=== PATIENT | male | born 1975 | race Caucasian/White ===

== ENCOUNTER 2017-11-12 13:00 | Outpatient (RCR) | payer BC, SELFPAY ==
--- NOTE | 2017-10-28 15:16 | HMH.PTOPEV ---
Rehab Outpatient Evaluation Rehab OP Evaluation Start: 10/28/17 14:26 Freq: Status: Active Protocol: Document 10/28/17 15:02 KAMRON (Rec: 10/28/17 15:16 JAYDENÁNGEL [id number]) Electronically Signed By Garett Mercado, PT 10/28/17 15:02 Outpatient Therapy Subjective History Subjective History Patient is a 42 year old male presenting to outpatient PT with reports of low back pain of insidious onset starting approximately 2 months ago that has progressively gotten worse. Inreased pain with standing which is relieved with sitting. Bilateral radicular symptoms to posterior thigh when standing. No diagnostics to report at this time. Comorbidities include increased BMI, hypertension , hyperlipidemia, diabetes. Pt reports hx of peripheral neuropathy prior to onset of back pain. Chief Complaint Pain Symptom Type Ache Dull Numbness Tingling Symptoms Relieved By Rest/Positioning Prescription Meds Symptoms Aggravated By Standing Walking Prior Functional Limitations None Current Functional Limitations Standing Walking Stairs Symptom Description Intermittent Level of pain today (0-10) 0 Pain scale - at its best (0-10) 8 Pain scale - at its worst (0-10) 0 Lumbopelvic Eval Posture Thoracic Spine Posture Standing Position Neutral Lumbar Spine Posture Standing Position Increased Lordosis Assistive device Assistive Devices None / NA Palapation tenderness bilateral paraspinal tenderness Yes Lumbar/Sacral Palpation Overall Comment L3-S1 Accessory Movement L-spine Vertebrae Accessory Movements Central P/A [place] that Elicit Symptoms L4 bilateral L5 bilateral S1 bilateral Range of Motion Lumbar Spine Active Flexion Range of 75 Motion (degrees) Lumbar Spine Active Extension Range of 20 Motion (degrees) Left Lumbar Spine Lateral Flexion Active 30 Range of Motion (degrees) Right Lumbar Spine Lateral Flexion 30 Active Range of Motion
== END 2017-11-12 13:01 | disposition home or self-care (01) ==
LOC: PT 13:00
PROVIDERS: Family Provider Family Medicine; Visit Provider Family Medicine
DX: M48.062 Spinal stenosis, lumbar region with neurogenic claudication (principal)
CPT/HCPCS: 97010; 97014; 97035; 97110; 97163; G0283

== ENCOUNTER → 2017-11-24 10:12 | Outpatient (CLI) | payer BC, SELFPAY ==
--- NOTE | 2017-11-24 10:15 | MR_ITS ---
MR lumbar spine wo con, MR 3-d myelogram/MRCP HISTORY: Unable to stand for long periods. Pain, numbness, and tingling radiating Bilaterally down hips and legs. Symptoms [id number]. No trauma ITS.REASON: SPINAL STENOSIS, LUMBAR REGION ORDERING PHYSICIAN: Asad Lozada MD PATIENT AGE: 42 years TECHNIQUE: Standard multiplanar multiecho sequences are performed without contrast. 3-D MIP and myelographic images are also rendered and reviewed FINDINGS: EXAM is somewhat limited secondary to patient's body habitus in decreased [id number]-iz-[id number] ratio. There is normal alignment. L1-L2: Unremarkable. L2-L3: Minimal disc desiccation. L3-L4: Unremarkable. L4-5: Unremarkable. L5-S1: There is a small central disc protrusion without neural impingement. There is mild facet hypertrophic change. No canal stenosis or other significant anomalies evident. IMPRESSION: Small central disc protrusion at L5-S1 otherwise essentially negative MRI of the lumbar spine
--- NOTE | 2017-11-24 10:15 | MR_ITS ---
MR lumbar spine wo con, MR 3-d myelogram/MRCP HISTORY: Unable to stand for long periods. Pain, numbness, and tingling radiating Bilaterally down hips and legs. Symptoms [id number]. No trauma ITS.REASON: SPINAL STENOSIS, LUMBAR REGION ORDERING PHYSICIAN: Asad Lozada MD PATIENT AGE: 42 years TECHNIQUE: Standard multiplanar multiecho sequences are performed without contrast. 3-D MIP and myelographic images are also rendered and reviewed FINDINGS: EXAM is somewhat limited secondary to patient's body habitus in decreased apipgf-kv-xulgz ratio. There is normal alignment. L1-L2: Unremarkable. L2-L3: Minimal disc desiccation. L3-L4: Unremarkable. L4-5: Unremarkable. L5-S1: There is a small central disc protrusion without neural impingement. There is mild facet hypertrophic change. No canal stenosis or other significant anomalies evident. IMPRESSION: Small central disc protrusion at L5-S1 otherwise essentially negative MRI of the lumbar spine
== END ==
PROVIDERS: Family Provider Family Medicine; Visit Provider Family Medicine
DX: M48.062 Spinal stenosis, lumbar region with neurogenic claudication (principal)
CPT/HCPCS: 72148; 76376

== ENCOUNTER → 2018-03-04 15:39 | Outpatient (REF) | payer BC, SELFPAY ==
[2018-03-04 17:42] LABS: Basophils % 0.5 % (0.1-2.0); Eosinophils # 0.2 K/mm3 (0.0-0.4); Eosinophils % 1.9 % (0.1-12.0); Hematocrit 47.5 % (42.0-52.0); Hemoglobin 15.4 g/dL (14.1-18.0); Lymphocytes # 1.4 K/mm3 (0.7-4.5); Mean Corpuscular HGB Conc 32.5 g/dL (31.8-35.4); Mean Corpuscular Hemoglobin 28.6 pg (27.0-31.2); Mean Platelet Volume 8.3 fl (7.4-10.4); Monocytes # 0.4 K/mm3 (0.1-1.0); Monocytes % 5.8 % (1.7-9.3); Neutrophils # 5.6 K/mm3 (1.8-7.8); Neutrophils % 73.7 % (37.0-80.0); Platelet Count 139 K/mm3 (142-424); Red Cell Distribution Width 15.8 % (11.5-17.5); White Blood Count 7.6 K/mm3 (4.8-10.8)
[2018-03-04 17:45] LABS: Hemoglobin A1C 10.2 % (0.0-7.0)
[2018-03-04 18:11] LABS: Alanine Aminotransferase 55 U/L (12-78); Albumin Level 3.7 gm/dL (3.4-5.0); Albumin/Globulin Ratio 0.9 (1.1-1.8); Alkaline Phosphatase 69 U/L (46-116); Anion Gap 12.4 mEq/L (5-15); Aspartate Amino Transferase 31 U/L (15-37); Bilirubin,Total 0.6 mg/dL (0.2-1.0); Blood Urea Nitrogen 13 mg/dL (7-18); Calcium 9.6 mg/dL (8.5-10.1); Carbon Dioxide 32 mmol/L (21.0-32.0); Chloride 95 mmol/L (98-107); Chol/HDL Ratio 3.3 (1-3.5); Cholesterol 113 mg/dL (140-200); Creatinine,Serum 0.84 mg/dL (0.70-1.30); Estimated Glomerular Filt Rate 101 ml/min (>60); GFR (African American) 122 ML/MIN (>60); Globulin 4.1 gm/dl (1.3-3.2); Glucose 274 mg/dL (74-106); HDL Cholesterol 34 mg/dL (27-67); LDL Cholesterol 52 mg/dL (0-130); Potassium 4.4 mmoL/L (3.5-5.1); Sodium 135 mmol/L (136-145); T4 (Thyroxine) 8.6 ug/dl (4.7-13.3); Total Protein,Serum 7.8 gm/dL (6.4-8.2); Triglycerides 135 mg/dL (30-200); VLDL Cholesterol 27 mg/dL (0-40)
[2018-03-06 09:15] LABS: Creatinine, Urine 47.5 mg/dL (Not Estab.); Microalbumin, Urine 44.3 ug/mL (Not Estab.)
[2018-03-08 12:54] LABS: Vitamin D 25 Hydroxy 18.8 ng/mL (30.0-100.0)
== END ==
LOC: LAB 15:39
PROVIDERS: Visit Provider Nurse Practitioner Family
DX: E11.40 Type 2 diabetes mellitus with diabetic neuropathy, unspecified (principal); I10 Essential (primary) hypertension; Z79.4 Long term (current) use of insulin
CPT/HCPCS: 80053; 80061; 82043; 82570; 82652; 83036; 84436; 84443; 85025

== ENCOUNTER → 2018-07-09 13:37 | Outpatient (CLI) | payer BC, SELFPAY ==
[2018-07-09 13:45] LABS: Microscopic, Urine URINE MICROSCOPIC (MICROSCOPIC)
[2018-07-09 14:21] LABS: Basophils % 0.7 % (0.1-2.0); Eosinophils # 0.2 K/mm3 (0.0-0.4); Eosinophils % 2.9 % (0.1-12.0); Hematocrit 48.5 % (42.0-52.0); Hemoglobin 15.8 g/dL (14.1-18.0); Lymphocytes # 1.2 K/mm3 (0.7-4.5); Lymphocytes % 20.8 % (10-50); Mean Corpuscular HGB Conc 32.5 g/dL (31.8-35.4); Mean Corpuscular Hemoglobin 29.7 pg (27.0-31.2); Mean Corpuscular Volume 91.1 fl (80-94); Mean Platelet Volume 7.7 fl (7.4-10.4); Monocytes # 0.4 K/mm3 (0.1-1.0); Monocytes % 6.5 % (1.7-9.3); Neutrophils % 69.2 % (37.0-80.0); Platelet Count 143 K/mm3 (142-424); Red Blood Count 5.32 M/mm3 (4.60-6.20); Red Cell Distribution Width 14.5 % (11.5-17.5); White Blood Count 5.8 K/mm3 (4.8-10.8)
[2018-07-09 14:30] LABS: Appearance,Urine CLEAR (Clear); Bilirubin,Urine Negative (Negative); Blood, Urine TRACE-I (Negative); Color,Urine YELLOW (Yellow); Glucose,Urine (UA) 3+ (Negative); Ketones,Urine Negative (Negative); Leukocyte Esterase,Urine Negative (Negative); Nitrate,Urine Negative (Negative); Protein,Urine TRACE (Negative)
[2018-07-09 14:34] LABS: Creatinine,Urine Random 60 mg/dL (20-320); Total Protein,Urine Random 28.5 mg/dL (0.0-11.9)
[2018-07-09 15:51] LABS: Bacteria,Urine Trace /lpf; RBC,Urine Occasional #/hpf (0-3)
[2018-07-09 17:26] LABS: Albumin Level 3.6 gm/dL (3.4-5.0); Blood Urea Nitrogen 7 mg/dL (7-18); Calcium 9.3 mg/dL (8.5-10.1); Carbon Dioxide 27 mmol/L (21.0-32.0); Chloride 92 mmol/L (98-107); Creatinine,Serum 0.69 mg/dL (0.70-1.30); Estimated Glomerular Filt Rate 126 ml/min (>60); GFR (African American) 153 ML/MIN (>60); Glucose 273 mg/dL (74-106); Phosphorous 2.4 mg/dL (2.4-4.9); Sodium 133 mmol/L (136-145)
[2018-07-12 14:24] LABS: Vitamin D 25 Hydroxy 22.8 ng/mL (30.0-100.0)
[2018-07-12 20:13] LABS: Parathyroid Hormone Intact 20 pg/mL (15-65)
== END ==
PROVIDERS: PCP Nurse Practitioner Family; Visit Provider Internal Medicine Nephrology
DX: R80.9 Proteinuria, unspecified (principal)
CPT/HCPCS: 36415; 80069; 81001; 82570; 82652; 83970; 84155; 85025

== ENCOUNTER → 2018-07-15 14:57 | Outpatient (POV) | payer BC, SELFPAY | PROVIDERS: Visit Provider Internal Medicine Nephrology | DX: Z00.00 Encounter for general adult medical examination without abnormal findings (principal) ==

== ENCOUNTER → 2018-07-30 13:34 | Outpatient (CLI) | payer BC, SELFPAY ==
[2018-07-30 14:55] LABS: Amphetamine/Metha Screen,Urine Negative ng/mL (<1000); Barbiturates Screen,Urine Negative ng/mL (<200); Benzodiazepines Screen,Urine Negative ng/mL (<200); Cannabinoid Screen,Urine Negative ng/mL (<50); Cocaine Screen,Urine Negative ng/mL (<300); Methadone Screen,Urine Negative ng/mL (<300); Opiate Screen,Urine Negative ng/mL (<300); Phencyclidine Screen,Urine Negative ng/mL (<25)
[2018-08-06 15:23] LABS: Alprazolam Negative (Cutoff=100); Benzodiazepines Negative ng/mL (Cutoff=100); Clonazepam Negative (Cutoff=100); Flurazepam Negative (Cutoff=100); Lorazepam Negative (Cutoff=100); Midazolam Negative (Cutoff=100); Temazepam Negative (Cutoff=100); Triazolam Negative (Cutoff=100)
== END ==
PROVIDERS: Visit Provider Nurse Practitioner Family
DX: Z79.899 Other long term (current) drug therapy (principal)
CPT/HCPCS: 80305; 80346

== ENCOUNTER → 2018-08-27 10:24 | Outpatient (CLI) | payer BC, SELFPAY | PROVIDERS: PCP Nurse Practitioner Family; Visit Provider Nurse Practitioner Family | DX: R06.02 Shortness of breath (principal); R05 Cough; F17.200 Nicotine dependence, unspecified, uncomplicated | CPT/HCPCS: 94060; 94640 ==

== ENCOUNTER → 2018-09-21 14:24 | Outpatient (POV) | payer BC, SELFPAY | PROVIDERS: Visit Provider Internal Medicine | DX: Z00.00 Encounter for general adult medical examination without abnormal findings (principal) ==

== ENCOUNTER → 2018-09-28 08:35 | Outpatient (CLI) | payer BC, SELFPAY ==
--- NOTE | 2018-09-28 08:37 | US_ITS ---
US scrotum HISTORY: Pain and swelling now with drainage ITS.REASON: mass ORDERING PHYSICIAN: Chintan Aguayo MD PATIENT AGE: 43 years Comparison: None FINDINGS: The right testicle is 5.3 x 2.4 x 3.3 cm. No testicular mass is evident. There is blood flow noted. There is some increased echogenicity of the slightly enlarged epididymis. No hydrocele The left testicle is 4.7 x 2.3 x 3.8 cm. There is blood flow present. No mass. No hydrocele. Left epididymis is somewhat prominent with some increase in echogenicity. There is diffuse edema of the scrotum. No loculated fluid collections apparent. IMPRESSION: 1. Diffuse scrotal edema. 2. Enlarged epididymides suggesting epididymitis
== END ==
PROVIDERS: PCP Emergency Medicine; Visit Provider Emergency Medicine
DX: N50.89 Other specified disorders of the male genital organs (principal)
CPT/HCPCS: 76870

== ENCOUNTER → 2018-11-08 14:33 | Outpatient (POV) | payer BC, SELFPAY ==
[2018-11-08 14:51] VITALS: BP 145/85; PULSE 85; RESP 18; O2SAT 98
--- NOTE | 2018-11-09 17:13 | HMH.PMCON ---
Assessment and Plan (1) Degenerative disc disease Current visit: Yes Status: Chronic Category: Medical (2) Lumbar radiculopathy Current visit: Yes Status: Chronic Category: Medical Code(s): M54.16 - Radiculopathy, lumbar region - Assessment and plan all Dx Assessment and Plan for all problems:: We will schedule the patient for an L5-S1 lumbar epidural steroid injection. I believe it would be beneficial given his relief from the first 1. I will follow-up with the patient after this reassess his symptoms at that time. Patient is not on any anticoagulation therapy and he is continuing a home stretching program. Patient's been instructed to call the office if he has any issues prior to his next appointment. We will also start him on gabapentin 300 mg [address] Diaz has reviewed this note and agrees with this plan of care. This note was dictated using voice recognition software and may contain errors or omissions HPI - Data of Consult Consult date: 11/08/18 Requesting Physician: Leidy Olmos APRN Primary Care Provider: BLAS Sinha - Consult Narrative Reason for consult: Back pain History of present illness: Mr. Russell is a 43 year old male who presents today for consultation in regard to his low back pain. Patient has had chronic low back pain for several years. Patient has had a epidural injection in the past and gotten moderate relief up to a 80% over 6 months. Patient would like to repeat this. I do believe that would be beneficial. Patient has done physical therapy with no long-term relief. Patient has numbness and tingling in bilateral legs. He does have an abnormal MRI he rates his pain a 5 out of 10. He is not on any anticoagulation therapy. He is currently on anti-inflammatories. CC: Leidy Olmos APRN [facility] History I have reviewed the patient's past medical history: Yes Medical History: Reports:: Anxiety, Depression, Diabetes Mellitus Type 2, Gall Bladder Disease, Gastroesophageal Reflux Disease(GERD), Hypertension *Have you ever received a pneumonia vaccine?: No *Have you received a flu vaccine this season?: No Other Surgeries: Yes: Cholecystectomy Amputation: No Fractures: Yes - *Social History Smoking Status: Current every day smoker Tobacco Type: cigarettes # Packs/Day (cigarettes): 1 Alcohol Intake: never Alcohol Intake Frequency:: 3 or more drinks per day Substance Use Type: denies use *Occupational Status:: employed Housing: house Household Members: spouse, children *Travel in the last 8 weeks: None - Psychiatric History Expresses thoughts of harming self/others: None Suicide Plan Description: No Plan Pschychiatric History:: Reports:: Anxiety, Depression Family Hx:: No significant family history Review of Systems - Review of Systems ROS General: no recent weight change, no fever, no sleep disturbances Respiratory: no cough, no shortness of air, no recurring pulmonary infections Cardiovascular/Peripheral Vascular: No chest pain, No palpitations, no edema, no shortness of breath. Gastrointestinal: no incontinence, normal bowel movements reported Genitourinary: no incontinence Musculoskeletal: Back pain, leg pain Psychiatric: normal mood/ affect, Neurological: [denies weakness in extremities], [denies balance issues] Meds Home Medications Medication Instructions Recorded Confirmed Type atorvastatin 40 mg tablet 40 mg PO DAILY 03/04/18 10/22/18 History Albuterol Sulfate [Albuterol HFA 1 - 2 puffs IH Q4-6H PRN #1 inh 07/11/18 10/22/18 Rx Inhaler] lorazepam 1 mg tablet 1 mg PO BID PRN #60 tab 07/30/18 10/22/18 Rx buspirone 7.5 mg tablet 15 mg PO TID #180 tab 08/10/18 10/22/18 Rx lisinopril 20 1 tab PO DAILY #90 tab 08/13/18 10/22/18 Rx mg-hydrochlorothiazide 25 mg tablet metformin 1,000 mg tablet 1,000 mg PO BID #60 tab 09/03/18 10/22/18 Rx budesonide-formoterol HFA 160 2 puff INHALATION BID #10.2 g 08/14
--- NOTE | 2018-11-09 17:16 | P.CONS_ITS ---
Assessment and Plan (1) Degenerative disc disease Current visit: Yes Status: Chronic Category: Medical (2) Lumbar radiculopathy Current visit: Yes Status: Chronic Category: Medical Code(s): M54.16 - Radiculopathy, lumbar region - Assessment and plan all Dx Assessment and Plan for all problems:: We will schedule the patient for an L5-S1 lumbar epidural steroid injection. I believe it would be beneficial given his relief from the first 1. I will follow-up with the patient after this reassess his symptoms at that time. Patient is not on any anticoagulation therapy and he is continuing a home stretching program. Patient's been instructed to call the office if he has any issues prior to his next appointment. We will also start him on gabapentin 300 mg [address] Diaz has reviewed this note and agrees with this plan of care. This note was dictated using voice recognition software and may contain errors or omissions HPI - Data of Consult Consult date: 11/08/18 Requesting Physician: Leidy Olmos APRN Primary Care Provider: BLAS Sinha - Consult Narrative Reason for consult: Back pain History of present illness: Mr. Russell is a 43 year old male who presents today for consultation in regard to his low back pain. Patient has had chronic low back pain for several years. Patient has had a epidural injection in the past and gotten moderate relief up to a 80% over 6 months. Patient would like to repeat this. I do believe that would be beneficial. Patient has done physical therapy with no long-term relief. Patient has numbness and tingling in bilateral legs. He does have an abnormal MRI he rates his pain a 5 out of 10. He is not on any anticoagulation therapy. He is currently on anti-inflammatories. CC: Leidy Olmos APRN [facility] History I have reviewed the patient's past medical history: Yes Medical History: Reports:: Anxiety, Depression, Diabetes Mellitus Type 2, Gall Bladder Disease, Gastroesophageal Reflux Disease(GERD), Hypertension *Have you ever received a pneumonia vaccine?: No *Have you received a flu vaccine this season?: No Other Surgeries: Yes: Cholecystectomy Amputation: No Fractures: Yes - *Social History Smoking Status: Current every day smoker Tobacco Type: cigarettes # Packs/Day (cigarettes): 1 Alcohol Intake: never Alcohol Intake Frequency:: 3 or more drinks per day Substance Use Type: denies use *Occupational Status:: employed Housing: house Household Members: spouse, children *Travel in the last 8 weeks: None - Psychiatric History Expresses thoughts of harming self/others: None Suicide Plan Description: No Plan Pschychiatric History:: Reports:: Anxiety, Depression Family Hx:: No significant family history Review of Systems - Review of Systems ROS General: no recent weight change, no fever, no sleep disturbances Respiratory: no cough, no shortness of air, no recurring pulmonary infections Cardiovascular/Peripheral Vascular: No chest pain, No palpitations, no edema, no shortness of breath. Gastrointestinal: no incontinence, normal bowel movements reported Genitourinary: no incontinence Musculoskeletal: Back pain, leg pain Psychiatric: normal mood/ affect, Neurological: [denies weakness in extremities], [denies balance issues] Meds Home Medications Medication Instructions Recorded Confirmed Type atorvastatin 40 mg tablet 40 mg PO DAILY 03/04/18 10/22/18 History A
== END ==
PROVIDERS: PCP Physician Assistant; Visit Provider Clinical Nurse Specialist Family Health
DX: M51.16 Intervertebral disc disorders with radiculopathy, lumbar region (principal)
CPT/HCPCS: 99202

== ENCOUNTER → 2018-12-14 09:52 | Outpatient (POV) | payer BC, SELFPAY ==
[2018-12-14 10:03] VITALS: BP 130/72; PULSE 87; RESP 18; O2SAT 98; BMI 65.9
--- NOTE | 2018-12-14 10:15 | HMH.PAINSOAP ---
[facility] Pain Management SOAP Note Subjective:: Patient is a pleasant 43-year-old white male who presents today for follow-up after his L5-S1 lumbar epidural steroid injection. Patient states he did extremely well. Patient had 80% relief of his symptoms for 2 weeks until he recently picked up a mower deck which increased his pain. Patient rates his pain today a 2 out of 10 when he sitting and not active. He is continuing anti-inflammatories and a home stretching program. He would like to repeat the epidural injection given the efficacy of it. ROS General: no recent weight change, no fever, no sleep disturbances Respiratory: no cough, no shortness of air, no recurring pulmonary infections Cardiovascular/Peripheral Vascular: No chest pain, No palpitations, no edema, no shortness of breath. Gastrointestinal: no incontinence, normal bowel movements reported Genitourinary: no incontinence Musculoskeletal: Back pain, leg pain Psychiatric: normal mood/ affect Neurological: [denies weakness in extremities], [denies balance issues] Objective:: Physical Exam General: Alert and oriented x3, no acute distress, pleasant and cooperative, [on room air] Lungs: Resps E/U, Symmetrical chest expansion, Eyes: PERRL Musculoskeletal: Flexion and extension of lumbar spine somewhat guarded secondary to pain, deep tendon reflexes normal, strength in upper and lower extremities [5/5], [abnormal gait noted] Neurological: speech clear, gusset ripper equal, no gross sensory deficits Assessment:: Degenerative disc disease lumbar spine with lumbar radiculopathy Plan:: We will set up the patient for second L5-S1 epidural steroid injection given the efficacy. Patient is on any anticoagulation therapy. I will follow-up with the patient after his injection reassess his symptoms at that time. Dr. Diaz has reviewed this note and agrees with this plan of care. This note was dictated using voice recognition software and may contain errors or omissions
--- NOTE | 2018-12-14 10:18 | P.CONS_ITS ---
[facility] Pain Management SOAP Note Subjective:: Patient is a pleasant 43-year-old white male who presents today for follow-up after his L5-S1 lumbar epidural steroid injection. Patient states he did extremely well. Patient had 80% relief of his symptoms for 2 weeks until he recently picked up a mower deck which increased his pain. Patient rates his pain today a 2 out of 10 when he sitting and not active. He is continuing anti- inflammatories and a home stretching program. He would like to repeat the epidural injection given the efficacy of it. ROS General: no recent weight change, no fever, no sleep disturbances Respiratory: no cough, no shortness of air, no recurring pulmonary infections Cardiovascular/Peripheral Vascular: No chest pain, No palpitations, no edema, no shortness of breath. Gastrointestinal: no incontinence, normal bowel movements reported Genitourinary: no incontinence Musculoskeletal: Back pain, leg pain Psychiatric: normal mood/ affect Neurological: [denies weakness in extremities], [denies balance issues] Objective:: Physical Exam General: Alert and oriented x3, no acute distress, pleasant and cooperative, [on room air] Lungs: Resps E/U, Symmetrical chest expansion, Eyes: PERRL Musculoskeletal: Flexion and extension of lumbar spine somewhat guarded secondary to pain, deep tendon reflexes normal, strength in upper and lower extremities [5/5], [abnormal gait noted] Neurological: speech clear, 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 Patient is on any anticoagulation therapy. I will follow-up with the patient after his injection reassess his symptoms at that time. Dr. Diaz has reviewed this note and agrees with this plan of care. This note was dictated using voice recognition software and may contain errors or omissions
== END ==
PROVIDERS: PCP Emergency Medicine; Visit Provider Clinical Nurse Specialist Family Health
DX: M51.16 Intervertebral disc disorders with radiculopathy, lumbar region (principal)
CPT/HCPCS: 99212

== ENCOUNTER → 2019-01-11 10:43 | Outpatient (POV) | payer BC, SELFPAY ==
[2019-01-11 11:21] VITALS: BP 119/68; PULSE 95; RESP 18; O2SAT 98; BMI 65.9
--- NOTE | 2019-01-11 11:51 | HMH.PAINSOAP ---
[facility] Pain Management SOAP Note Subjective:: Patient is a pleasant 43-year-old white male who presents today for follow-up of lumbar epidural steroid injection of L5-S1. The patient was started on gabapentin 300 mg p.o. 3 times daily. He rates his pain a 2 out of 10 today. He says that he got up to 2 weeks of relief with the injection, and about 70%. His pain has returned and is worse with standing. He says that it is worse with standing radiating into his left leg. He is continuing anti-inflammatories and a home stretching program The patient does complain of feeling too tired with gabapentin dosage. He would like a decrease in the medication. Review of Systems General: No recent weight changes, no fever, no sleep disturbances Respiratory: No cough, no shortness of air, no recurring pulmonary infections Cardiovascular/peripheral vascular: No chest pain, no palpitations, no edema, no shortness of breath Gastrointestinal: No new onset incontinence, normal bowel movements reported Genitourinary: No new onset incontinence Musculoskeletal: Pain, leg pain Psychiatric: Normal mood/affect Neurological: [Denies weakness in extremities], [denies balance issues] Objective:: Physical exam General: Alert and oriented x3, no acute distress, pleasant and cooperative, [on room air] Lungs: Respirations even and unlabored, symmetrical chest expansion Eyes: PERRL Musculoskeletal: Flexion and extension of lumbar spine somewhat guarded secondary to pain, deep tendon reflexes normal, strength in upper and lower extremities [5/5], lightly antalgic gait noted Neurological: Speech clear, biomechanical engineer equal, no gross sensory deficit Assessment:: Narrative disc disease lumbar spine with lumbar radiculopathy symptoms Plan:: We will decrease the patient's gabapentin to 100 mg 1 p.o. 3 times daily. Patient has been instructed to start out taking 1 p.o. at nighttime x1 week. He can then progressed to 3 times daily. Patient is also interested in a spinal cord stimulator. I did give him some information he would like to go home and discuss this with his . He will follow-up in 1 month to discuss further options and we will reassess his symptoms at that time. He is been instructed to call the office if he has any concerns prior to his next appointment. Sy #[id number] has been reviewed and is appropriate. Dr. Diaz has reviewed this note and agrees with this plan of care. This note was dictated using voice recognition software and make contain errors or omissions.
--- NOTE | 2019-01-11 11:55 | P.CONS_ITS ---
[facility] Pain Management SOAP Note Subjective:: Patient is a pleasant 43-year-old white male who presents today for follow-up of lumbar epidural steroid injection of L5-S1. The patient was started on gabapentin 300 mg p.o. 3 times daily. He rates his pain a 2 out of 10 today. He says that he got up to 2 weeks of relief with the injection, and about 70%. His pain has returned and is worse with standing. He says that it is worse with standing radiating into his left leg. He is continuing anti-inflammatories and a home stretching program The patient does complain of feeling too tired with gabapentin dosage. He would like a decrease in the medication. Review of Systems General: No recent weight changes, no fever, no sleep disturbances Respiratory: No cough, no shortness of air, no recurring pulmonary infections Cardiovascular/peripheral vascular: No chest pain, no palpitations, no edema, no shortness of breath Gastrointestinal: No new onset incontinence, normal bowel movements reported Genitourinary: No new onset incontinence Musculoskeletal: Pain, leg pain Psychiatric: Normal mood/affect Neurological: [Denies weakness in extremities], [denies balance issues] Objective:: Physical exam General: Alert and oriented x3, no acute distress, pleasant and cooperative, [on room air] Lungs: Respirations even and unlabored, symmetrical chest expansion Eyes: PERRL Musculoskeletal: Flexion and extension of lumbar spine somewhat guarded secondary to pain, deep tendon reflexes normal, strength in upper and lower extremities [5/5], lightly antalgic gait noted Neurological: Speech clear, 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 3 times daily. Patient has been instructed to start out taking 1 p.o. at nighttime x1 week. He can then progressed to 3 times daily. Patient is also interested in a spinal cord stimulator. I did give him some information he would like to go home and discuss this with his . He will follow-up in 1 month to discuss further options and we will reassess his symptoms at that time. He is been instructed to call the office if he has any concerns prior to his next appointment. Sy #[id number] has been reviewed and is appropriate. Dr. Diaz has reviewed this note and agrees with this plan of care. This note was dictated using voice recognition software and make contain errors or omissions.
== END ==
PROVIDERS: PCP Nurse Practitioner Family; Visit Provider Clinical Nurse Specialist Family Health
DX: M51.16 Intervertebral disc disorders with radiculopathy, lumbar region (principal)
CPT/HCPCS: 99212

== ENCOUNTER → 2019-05-05 13:48 | Outpatient (CLI) | payer BC, SELFPAY ==
--- NOTE | 2019-05-05 13:52 | XR_ITS ---
PROCEDURE: XR FOOT WT BEARING LT 3V CLINICAL INDICATION: ankle pain Ankle pain and swelling COMPARISON: XR FOOT RT MIN 3V from 03/19/2019 XR ANKLE WT BEARING LT MIN 3V from 05/05/2019 FINDINGS: No fracture or dislocation. No lytic or blastic change. There is normal mineralization. The joint spaces are well-preserved. No significant degenerative/arthritic changes. No erosive changes evident. Other findings:There is a prominent posterior talar process. There is mild pes planus and there is a small calcaneal spur. IMPRESSION: Mild pes planus. No acute finding Dictated by: Veto Zhang MD 05/05/2019 14:18 Electronically signed by Veto Zhang MD in [place] 05/05/2019 14:18
--- NOTE | 2019-05-05 13:52 | XR_ITS ---
PROCEDURE: XR ANKLE WT BEARING LT MIN 3V CLINICAL INDICATION: ankle pain COMPARISON: No exams were available for comparison FINDINGS: No fracture, dislocation, lytic change, or blastic change evident. No significant degenerative change. There is a prominent posterior talar process. Calcaneal spur and Achilles enthesophyte is noted IMPRESSION: No acute findings. Dictated by: Veto Zhang MD 05/05/2019 14:19 Electronically signed by Veto Zhang MD in [place] 05/05/2019 14:19
== END ==
PROVIDERS: PCP Emergency Medicine; Visit Provider Podiatrist
DX: M25.572 Pain in left ankle and joints of left foot (principal)
CPT/HCPCS: 73610; 73630

== ENCOUNTER 2019-05-25 13:00 | Outpatient (RCR) | payer BC, SELFPAY ==
--- NOTE | 2019-05-11 14:19 | HMH.PTOPWND ---
Rehab Outpt Wound Evaluation Rehab OP Wound Evaluation Start: 05/11/19 13:59 Freq: Status: Active Protocol: Document 05/11/19 14:12 PHOSANJIV (Rec: 05/11/19 14:19 PHORNE [id number]) Electronically Signed By Colin Malhotra, PT 05/11/19 14:12 Subjective/History History History Pt is 43 yowm who presents with c/o B LE edema x 2-3 years overall, worse x 2-3 mos and worse in the left LE than the right. He reports no c/o pain currently, but states sometimes my legs feel almost like they are sunburned. He also reports no c/o numbness or tingling aside from neuropathy in B feet due to diabetes. He reports the edema does not decrease with elevation of his legs and he sometimes feels edema increase in his abdomen and upper legs which causes respiratory difficulty. He has PMH of anxiaty, depression, DM-II. He also currently has a wound on the plantar surface of his left 2nd toe which required sutures. Subjective Subjective Edema in B LE, 3+ pitting B, increased fibrotic tissue in the left LE. Lymphedema Eval Classification of Lymphedema Secondary Lymphedema Yes Stemmer's sign Stemmer's Sign no Stage of Lymphedema Lymphedema stages Stage II (Pitting edema, increased fibrosis w/ decreased pitting) Skin Changes Dry Skin Yes Skin Folds Yes Redness Yes Wounds Yes Brittle Uneven Nails Yes Discoloration of Skin Yes Other Changes Yes Affected Extremities Areas Affected by Lymphedema/Edema Abdomen,Right Lower Extremity, Left Lower Extremity Manual Lymphatic Drainage Treatment Area MLD Treatment Area Abdomen,Right Lower Extremity, Left Lower Extremity Wound Problems/Impairments Impairments Problems/Impairmments Palpation Tenderness,Impaired Endurance,Impaired [employer]
--- NOTE | 2019-06-15 09:45 | HMH.RHREAS ---
Rehab Reassessment Rehab OP Re-assessment Start: 06/15/19 09:41 Freq: Status: Active Protocol: Document 06/15/19 09:41 NUVIA (Rec: 06/15/19 09:44 NUVIA [id number]) Electronically Signed By Colin Malhotra, PT 06/15/19 09:41 Rehab Re-assessment Subjective Subjective Pt presents with new onset anterior funk wounds B this date. Otherwise he has not been treated since his initial eval. Objective Objective Notes B funk wounds: Right length= 1 .5 cm, width= 3.1 cm. Left length= 1.1 cm, width= 1. 1 cm. Assessment Progress Assessment Slower Than Expected Assessment Notes Pt has been following HEP somewhat, but has not been treated since initial eval. ew wound appear to be healing well with full granulation tissue noted. Patient goals met none Goals Not Met ST,2,3 LT,2,3,4, 5,6 Revised Goals none Plan Plan Continue per initial POC. Frequency of Therapy 2 x/wk Duration of therapy 8 wks. Time and Billing Re-Eval Time 15 Re-Eval Billing Units 1 PHYSICIAN CERTIFICATION: I certify the specified therapy services for Gonzalo Russell are required, authorized, and reviewed every 30 days.
== END 2019-05-25 13:05 | disposition home or self-care (01) ==
LOC: PT 13:00
PROVIDERS: Visit Provider Podiatrist
DX: R60.0 Localized edema (principal); L03.90 Cellulitis, unspecified
CPT/HCPCS: 97140; 97162; 97164; 97597

== ENCOUNTER → 2019-06-30 20:10 | Outpatient (CLI) | payer BC, SELFPAY | PROVIDERS: PCP Emergency Medicine; Visit Provider Nurse Practitioner Family | DX: G47.33 Obstructive sleep apnea (adult) (pediatric) (principal); I10 Essential (primary) hypertension; R40.0 Somnolence; R06.83 Snoring; E66.9 Obesity, unspecified ==

== ENCOUNTER → 2019-07-18 11:23 | Outpatient (POV) | payer BC, SELFPAY ==
--- NOTE | 2019-07-18 11:58 | HMH.PAINSOAP ---
[facility] Pain Management SOAP Note Subjective:: Patient is a pleasant 44-year-old white male who presents today for follow-up. Patient was decreased on his gabapentin at his last visit because he felt too tired however he states that he forgot he was taking his trazodone at the same time. Once decreased on his gabapentin it was not as effective. He rates his pain a 3 out of 10 today. Patient currently weighs 525 pounds. Patient is interested in a neurostimulator and I do believe it would be beneficial for him. Patient is going to undergo weight loss surgery. ROS General: no recent weight change, no fever, no sleep disturbances Respiratory: no cough, no shortness of air, no recurring pulmonary infections Cardiovascular/Peripheral Vascular: No chest pain, No palpitations, no edema, no shortness of breath. Gastrointestinal: no new onset incontinence, normal bowel movements reported Genitourinary: no new onset incontinence Musculoskeletal: Back pain, leg pain Psychiatric: normal mood/ affect Neurological: [denies new onset weakness in extremities], [denies new onset balance issues] Objective:: Physical Exam General: Alert and oriented x3, no acute distress, pleasant and cooperative, [on room air] Lungs: Resps E/U, Symmetrical chest expansion, Eyes: PERRL Musculoskeletal: Flexion and extension of lumbar spine somewhat guarded secondary to pain, deep tendon reflexes normal, strength in upper and lower extremities [5/5], [abnormal gait noted] Neurological: speech clear, loan originator equal, no gross sensory deficits Assessment:: Degenerative disc disease lumbar spine with lumbar radiculopathy symptoms Plan:: We will change the patient's gabapentin back to 300 mg 1 p.o. 3 times daily I will follow-up with him in 1 month reassess his symptoms to ensure that he is doing all right with this. Patient is going to move forward with his weight loss surgery and dieting to see if he can get below 500 pounds and be a candidate for a neurostimulator. He is been instructed to call the office if he has any issues prior to his next appointment. Dr. Diaz has reviewed this note and agrees with this plan of care. This note was dictated using voice recognition software and may contain errors or omissions [facility] History I have reviewed the patient's past medical history: Yes Medical History: Reports:: Anxiety, Depression, Diabetes Mellitus Type 2, Gall Bladder Disease, Gastroesophageal Reflux Disease(GERD), Hyperlipidemia, Hypertension Denies:: Cancer, Diabetes Mellitus Type 1, MRSA, Seizures *Have you ever received a pneumonia vaccine?: Yes *Have you received a flu vaccine this season?: No Other Medical History: Reports: Other. Denies: Blood Transfusion Reaction Other Surgeries: Yes: Cholecystectomy, Colonoscopy Amputation: No Fractures: Yes - *Social History Smoking Status: Current every day smoker Tobacco Type: cigarettes # Packs/Day (cigarettes): 1 #Yrs smoked (if former smoker): 20 Alcohol Intake: never Alcohol Intake Frequency:: 0-2 drinks per day Substance Use Type: denies use, marijuana *Occupational Status:: other, employed Housing: house Household Members: spouse, children *Travel in the last 8 weeks: None - Psychiatric History Pschychiatric History:: Reports:: Anxiety, Depression Family Hx:: Hypertension
[2019-07-18 12:07] VITALS: BP 111/61; PULSE 100; RESP 18; O2SAT 98; BMI 70.5
== END ==
PROVIDERS: PCP Emergency Medicine; Visit Provider Clinical Nurse Specialist Family Health
DX: M51.16 Intervertebral disc disorders with radiculopathy, lumbar region (principal)
CPT/HCPCS: 99212

== ENCOUNTER → 2019-08-29 09:32 | Outpatient (POV) | payer BC, SELFPAY | PROVIDERS: PCP Physician Assistant; Visit Provider Nurse Practitioner Family | DX: Z00.00 Encounter for general adult medical examination without abnormal findings (principal) ==

== ENCOUNTER → 2019-08-29 12:54 | Outpatient (POV) | payer BC, SELFPAY ==
--- NOTE | 2019-08-29 13:14 | HMH.PAINSOAP ---
[facility] Pain Management SOAP Note Subjective:: Patient is a pleasant 44-year-old white male who presents today for medication refill and follow-up. He is been treated for degenerative disc disease lumbar spine with lumbar radiculopathy symptoms. He does have pain in his low spine with radiation into bilateral lower extremities. Patient rates his pain a 3 out of 10 today. He is currently on gabapentin 300 mg 1 tablet p.o. 3 times daily. He says he is having some increased numbness and tingling to his bilateral lower extremities. He would like an increase in his gabapentin today. The patient does weigh 515 pounds. He is currently seeking treatment for gastric bypass surgery. He has discussed possible spinal cord stimulation with other providers within the clinic in the past. He would like to proceed with spinal cord stimulation after he undergoes gastric bypass surgery. At this time, he will continue management with gabapentin. He does continue with home exercising to the best of his ability. He does continue to take anti-inflammatories as well. Review of Systems General: No recent weight changes, no fever, no sleep disturbances Respiratory: No cough, no shortness of air, no recurring pulmonary infections Cardiovascular/peripheral vascular: No chest pain, no palpitations, no edema, no shortness of breath Gastrointestinal: No new onset incontinence, normal bowel movements reported Genitourinary: No new onset incontinence Musculoskeletal: Low back pain, bilateral leg pain Psychiatric: Normal mood/affect Neurological: [Denies weakness in extremities], [denies balance issues] Objective:: Physical exam General: Alert and oriented x3, no acute distress, pleasant and cooperative, [on room air] Lungs: Respirations even and unlabored, symmetrical chest expansion Eyes: PERRL Musculoskeletal: Flexion and extension of lumbar spine somewhat guarded secondary to pain, deep tendon reflexes normal, strength in upper and lower extremities [5/5], [abnormal gait noted] Neurological: Speech clear, set up person equal, no gross sensory deficit Assessment:: Degenerative disc disease lumbar spine with lumbar radiculopathy symptoms Plan:: We will increase the patient's gabapentin to 300 mg 1 tablet p.o. 4 times daily. We will give him 3 months worth of medication see him back in clinic in 3 months to reassess his symptoms. His Sy #[id number] has been reviewed and is appropriate. His urine drug screens have been appropriate. He has morphine equivalent is 0. Patient has been instructed to contact clinic if he has any concerns before his next appointment. Dr. Diaz has reviewed this note and agrees with this plan of care. This note was dictated using voice recognition software and make contain errors or omissions. [facility] History I have reviewed the patient's past medical history: Yes Medical History: Reports:: Anxiety, Depression, Diabetes Mellitus Type 2, Gall Bladder Disease, Gastroesophageal Reflux Disease(GERD), Hyperlipidemia, Hypertension Denies:: Cancer, Diabetes Mellitus Type 1, MRSA, Seizures *Have you ever received a pneumonia vaccine?: Yes *Have you received a flu vaccine this season?: Yes Other Medical History: Reports: Other. Denies: Blood Transfusion Reaction Other Surgeries: Yes: Cholecystectomy, Colonoscopy Amputation: No Fractures: Yes - *Social History Smoking Status: Current every day smoker Tobacco Type: cigarettes # Packs/Day (cigarettes): 1 #Yrs smoked (if former smoker): 20 Alcohol Intake: never Alcohol Intake Frequency:: 0-2 drinks per day Substance Use Type: denies use, marijuana *Occupational Status:: other Housing: house Household Members: spouse, children *Travel in the last 8 weeks: None - Psychiatric History Pschychiatric History:: Reports:: Anxiety, Depression Family Hx:: Hypertension
[2019-08-29 13:16] VITALS: BP 138/73; PULSE 87; RESP 18; O2SAT 99; BMI 69.5
== END ==
PROVIDERS: PCP Emergency Medicine; Visit Provider Clinical Nurse Specialist Family Health
DX: M51.16 Intervertebral disc disorders with radiculopathy, lumbar region (principal); Z76.0 Encounter for issue of repeat prescription
CPT/HCPCS: 99212

== ENCOUNTER → 2019-09-05 10:55 | Outpatient (CLI) | payer BC, SELFPAY ==
--- NOTE | 2019-09-05 10:56 | CA_ITS ---
APPROVED REPORT EXAM: Comprehensive 2D, Doppler, and color-flow Echocardiogram Window Dresser: Leigh Rodriguez CRT Ht: 6 ft 0 in Wt: 513lbs BSA: 3.18 BP: 152/80 mmHg Indications: Shortness of Breath, Diabetes, Obesity, Peripheral Edema, Hypertension/HDD, SMOKER, EDEMA, PRE-OP BARIATRIC SURGERY 2D Dimensions LVOT 2.59 cm (M/F) 1.5-2.5 M-Mode Dimensions RVDd 3.18 cm (0.9-2.6) LVDd 5.63 cm (3.5-5.7) LVDs 3.41 cm (3.5-5.7) IVSd 2.02 cm (0.6-1.1) PWd 0.99 cm (0.6-1.1) EF (Teich) 69.30% FS 39.40% EDV (Teich) 155.60 mL ESV (Teich) 47.80 mL LV Diastology E/A Ratio 1.20 Mitral Valve MV A Velocity 77.00 (40-130 cm/s) Left Ventricle Left atrium is mildly enlarged, left ventricle is normal size, mild concentric left ventricular hypertrophy, visually estimated ejection fraction 55% with no regional wall motion abnormality. Diastolic parameters are inconclusive. Right Ventricle Right atrium and right ventricular mildly enlarged with normal contractility. Aortic Valve Aortic valve is minimally thickened and fibrosed, there is no aortic stenosis or aortic insufficiency. Mitral Valve Mitral valve is grossly normal, there is mild mitral regurgitation. Tricuspid Valve Tricuspid valve is grossly normal, there is mild tricuspid regurgitation. Pulmonic Valve Pulmonic valve is poorly visualized. Great Vessels Aortic root is normal size. Pericardium No significant pericardial effusion noted. Conclusion 1. Mild mitral enlargement, normal left ventricular size, mild concentric left ventricular hypertrophy, visually estimated ejection fraction 55% with no regional wall motion abnormality, diastolic parameters are inconclusive. 2. Mildly enlarged right ventricle with normal contractility. 3. Mild mitral and tricuspid regurgitation. 4. No significant pericardial effusion noted. Electronically signed by : Bentley Prasad, 09/05/2019 20:36:40
== END ==
PROVIDERS: PCP Emergency Medicine; Visit Provider Internal Medicine Cardiovascular Disease
DX: R06.00 Dyspnea, unspecified (principal); R60.0 Localized edema; E66.9 Obesity, unspecified; I10 Essential (primary) hypertension; R60.9 Edema, unspecified
CPT/HCPCS: 93306

== ENCOUNTER → 2019-09-14 12:52 | Outpatient (CLI) | payer BC, SELFPAY ==
[2019-09-14 13:39] LABS: Basophils % 0.4 % (0.1-2.0); Eosinophils # 0.2 K/mm3 (0.0-0.4); Eosinophils % 2.5 % (0.1-12.0); Hemoglobin 14.2 g/dL (14.1-18.0); Lymphocytes % 15.7 % (10-50); Mean Corpuscular HGB Conc 32.9 g/dL (31.8-35.4); Mean Corpuscular Volume 91.3 fl (80-94); Mean Platelet Volume 8.4 fl (7.4-10.4); Monocytes # 0.5 K/mm3 (0.1-1.0); Monocytes % 7.3 % (1.7-9.3); Neutrophils # 4.9 K/mm3 (1.8-7.8); Neutrophils % 74.1 % (37.0-80.0); Platelet Count 154 K/mm3 (142-424); Red Blood Count 4.71 M/mm3 (4.60-6.20); Red Cell Distribution Width 16.3 % (11.5-17.5); White Blood Count 6.7 K/mm3 (4.8-10.8)
[2019-09-14 15:13] LABS: Chloride 86 mmol/L (98-107); Potassium 3.9 mmoL/L (3.5-5.1); Sodium 127 mmol/L (136-145)
[2019-09-14 15:16] LABS: Anion Gap 17.9 mEq/L (5-15); Blood Urea Nitrogen 7 mg/dl (9-20); Calcium 8.9 mg/dl (8.4-10.2); Carbon Dioxide 27 mmol/L (22.0-30.0); Estimated Glomerular Filt Rate 236 ml/min (>60); GFR (African American) 285 ML/MIN (>60); Glucose 284 mg/dl (74-100)
[2019-09-14 15:19] LABS: Hemoglobin A1C 9.7 % (4.0-6.0)
[2019-09-14 15:25] LABS: NT Pro Brain Natriuretic Pep. 51.2 pg/mL (0-125)
[2019-09-14 16:59] LABS: Chloride 86 mmol/L (98-107)
[2019-09-14 17:00] LABS: Potassium 3.8 mmoL/L (3.5-5.1); Sodium 126 mmol/L (136-145)
[2019-09-14 17:02] LABS: Alanine Aminotransferase 39 U/L (12-78); Albumin Level 3.8 g/dl (3.5-5.0); Albumin/Globulin Ratio 1.2 (1.1-1.8); Alkaline Phosphatase 65 U/L (38-126); Anion Gap 17.8 mEq/L (5-15); Aspartate Amino Transferase 65 U/L (17-59); Bilirubin,Total 0.8 mg/dl (0.2-1.3); Blood Urea Nitrogen 7 mg/dl (9-20); Carbon Dioxide 26 mmol/L (22.0-30.0); Cholesterol 100 mg/dl (140-200); Estimated Glomerular Filt Rate 236 ml/min (>60); GFR (African American) 285 ML/MIN (>60); Globulin 3.3 g/dL (1.3-3.2); Iron 76 ug/dL (49-181); Phosphorous 2.7 mg/dl (2.5-4.5); Total Protein,Serum 7.1 g/dl (6.3-8.2); Triglycerides 255 mg/dl (30-150); VLDL Cholesterol 51 mg/dL (0-40)
[2019-09-14 17:03] LABS: Chol/HDL Ratio 5.9 (1-3.5); Glucose 285 mg/dl (74-100); HDL Cholesterol 17 mg/dl (40-60); Magnesium 1.3 mg/dl (1.6-2.3)
[2019-09-14 17:14] LABS: Direct LDL Cholesterol 55.94 mg/dL (100-129)
[2019-09-14 17:35] LABS: Thyroid Stimulating Hormone 1.92 uIU/mL (0.465-4.68)
[2019-09-14 17:38] LABS: Ferritin 29.6 ng/ml (17.9-464)
[2019-09-15 12:18] LABS: Folate 4.6 ng/mL (>3.0)
[2019-09-15 12:18] LABS: Prealbumin 15 mg/dL (12-34)
[2019-09-16 10:31] LABS: Parathyroid Hormone Intact 16 pg/mL (15-65)
[2019-09-17 19:43] LABS: Vitamin E Alpha Tocopherol 5.6 mg/L (7.0-25.1)
[2019-09-17 20:41] LABS: Vitamin A 22.5 ug/dL (20.1-62.0); Vitamin B1 126.1 nmol/L (66.5-200.0); Vitamin E Gamma Tocopherol 1.3 mg/L (0.5-5.5)
[2019-09-18 13:50] LABS: Methylmalonic Acid 135 nmol/L (0-378)
== END ==
PROVIDERS: Physician Assistant; Visit Provider Internal Medicine Cardiovascular Disease
DX: I10 Essential (primary) hypertension (principal); R06.00 Dyspnea, unspecified; R60.0 Localized edema; R60.9 Edema, unspecified; K21.9 Gastro-esophageal reflux disease without esophagitis; E66.01 Morbid (severe) obesity due to excess calories; E55.9 Vitamin D deficiency, unspecified; E11.9 Type 2 diabetes mellitus without complications; Z79.84 Long term (current) use of oral hypoglycemic drugs; Z72.0 Tobacco use; G47.33 Obstructive sleep apnea (adult) (pediatric)
CPT/HCPCS: 36415; 80048; 80053; 80061; 82131; 82652; 82728; 82746; 83036; 83540; 83735; 83880; 83970; 84100; 84134; 84425; 84443; 84446; 84590; 85025

== ENCOUNTER → 2019-09-26 15:10 | Outpatient (POV) | payer BC, SELFPAY ==
[2019-09-26 15:26] VITALS: BP 115/69; PULSE 93; RESP 18; O2SAT 99; BMI 69.8
--- NOTE | 2019-09-27 08:53 | P.CONS_ITS ---
[facility] Pain Management SOAP Note Subjective:: Patient is a pleasant 44-year-old white male who presents today for medication refills and follow-up. He is being treated for degenerative disc disease lumbar spine with lumbar radiculopathy symptoms. Patient is not having any relief with his gabapentin 300 mg 1 p.o. 4 times daily. He weighs 515 pounds and is currently in the process of moving towards a gastric bypass surgery we have discussed spinal cord stimulation and he would like to move forward with that however we will have to do this after his bypass surgery. He rates his pain a 7 out of 10 ROS General: no recent weight change, no fever, no sleep disturbances Respiratory: no cough, no shortness of air, no recurring pulmonary infections Cardiovascular/Peripheral Vascular: No chest pain, No palpitations, no edema, no shortness of breath. Gastrointestinal: no new onset incontinence, normal bowel movements reported Genitourinary: no new onset incontinence Musculoskeletal: Back pain, leg pain Psychiatric: normal mood/ affect, Neurological: [denies new onset weakness in extremities], [denies new onset balance issues] Objective:: Physical Exam General: Alert and oriented x3, no acute distress, pleasant and cooperative, [on room air] Lungs: Resps E/U, Symmetrical chest expansion, Eyes: PERRL Musculoskeletal: Flexion and extension of lumbar spine somewhat guarded secondary to pain, deep tendon reflexes normal, strength in upper and lower extremities [5/5], [abnormal gait noted] Neurological: speech clear, insurance claims specialist equal, no gross sensory deficits Assessment:: Degenerative disc disease lumbar spine with lumbar radiculopathy Plan:: We will change the patient over to Lyrica 75 mg 1 p.o. 3 times daily. He is to stop his gabapentin. I will follow-up with him after this reassess his symptoms at that time he has been instructed to call the office if he has any issues prior to his next appointment. Dr. Diaz has reviewed this note and agrees with this plan of care. This note was dictated using voice recognition software and may contain errors or omissions [facility] History I have reviewed the patient's past medical history: Yes Medical History: Reports:: Anxiety, Depression, Diabetes Mellitus Type 2, Gall Bladder Disease, Gastroesophageal Reflux Disease(GERD), Hyperlipidemia, Hypertension Denies:: Cancer, Diabetes Mellitus Type 1, MRSA, Seizures *Have you ever received a pneumonia vaccine?: Yes *Have you received a flu vaccine this season?: Yes Other Medical History: Reports: Other. Denies: Blood Transfusion Reaction Other Surgeries: Yes: Cholecystectomy, Colonoscopy Amputation: No Fractures: Yes - *Social History Smoking Status: Current every day smoker Tobacco Type: cigarettes # Packs/Day (cigarettes): 1 #Yrs smoked (if former smoker): 20 Alcohol Intake: never Alcohol Intake Frequency:: 0-2 drinks per day Substance Use Type: denies use, marijuana *Occupational Status:: other Housing: house Household Members: spouse, children *Travel in the last 8 weeks: None - Psychiatric History Pschychiatric History:: Reports:: Anxiety, Depression Family Hx:: Hypertension
== END ==
PROVIDERS: PCP Emergency Medicine; Visit Provider Clinical Nurse Specialist Family Health
DX: M51.16 Intervertebral disc disorders with radiculopathy, lumbar region (principal)
CPT/HCPCS: 99212

== ENCOUNTER → 2019-10-17 13:59 | Outpatient (POV) | payer BC, SELFPAY ==
--- NOTE | 2019-10-17 14:11 | HMH.VVPMSO ---
[facility] Virtual Visit SOAP Consent for virtual visit:: With the recent concerns about the COVID-19, we are trying to minimize exposure to you by shifting to telehealth appointments whenever possible. It restricts me from seeing you in person, but the trade off is protecting you during this pandemic. Can you see and hear me okay, and do you consent to this option? If not, I would be happy to see if we can reschedule your appointment in the future, when feasible. Has patient consented to this virtual visit?: Yes Subjective:: Patient is a pleasant 44-year-old white male who presents today for follow-up after he started Lyrica. He is recently been diagnosed with pneumonia. He is battling this at this time. He states his pain is a little worse. He is a half 515 pounds. He is on Lyrica 75 mg 1 p.o. 3 times daily which he states he has no side effects to however it has not been beneficial for him. He rates his pain a 7 out of 10 today. He is currently working towards the process of gastric bypass surgery and we discussed spinal cord stimulation in the past I still believe that this would be beneficial for him. ROS General: no recent weight change, no fever, no sleep disturbances Respiratory: no cough, no shortness of air, no recurring pulmonary infections Cardiovascular/Peripheral Vascular: No chest pain, No palpitations, no edema, no shortness of breath. Gastrointestinal: no new onset incontinence, normal bowel movements reported Genitourinary: no new onset incontinence Musculoskeletal: Back pain, leg pain Psychiatric: normal mood/ affect Neurological: [denies new onset weakness in extremities], [denies new onset balance issues] Objective:: Physical exam: Constitutional: Healthy appearing, well-developed, alert, in no acute distress Psychiatric: Judgment and insight intact, Alert and oriented x4 Mood and affect: Mood normal, affect appropriate Head and face: Inspection: Normocephalic atraumatic, extraocular movement intact Respiratory: Breathing nonlabored, nondyspneic Cardiovascular: No cyanosis, clubbing, or edema observed Skin: Head and neck: Skin with no lesions or rash observed Gait: Able to walk without assistive device: Able to heel and toe walk Neurologic: Sensation grossly intact per patient Musculoskeletal: Decreased range of motion lumbar spine, patient has difficulty with bending movements Assessment:: Degenerative disc disease lumbar spine lumbar radiculopathy Plan:: We will change the patient to Lyrica 150 mg 1 p.o. 3 times daily. I will follow-up with him in a telehealth visit in 2 weeks reassess his symptoms at that time he has been instructed to call the office if he has any issues prior to his next appointment. This encounter was performed as a telemedicine visit via secure 2 way video and audio to minimize risk and transmission of Covid-19. The patient and we understand the limitations of a telemedicine visit including inability to check reflexes, possibly missing subtle findings on physical exam. Alternative options were presented to the patient and the patient elected to proceed with the visit. We specifically discussed risk factors for Covid-19 including age, heart or lung disease, diabetes, immunosuppression and travel. We also discussed that NSAIDs may worsen Covid-19 infection symptoms and that they should not be used to treat Covid-19 symptoms. Patient was also informed that corticosteroids in any form oral or injectable will decrease immune response and may increase risk of Covid-[address] Diaz has reviewed this patient's chart and this note and agrees with plan of care. Patient has been instructed to call the office if they have any issues prior to the next appointment. Time In:: 13:55 Time Out:: 14:05 [facility] History I have reviewed the patient's past medical history: Yes Medical History: Reports:: Anxiety, Depression, Diabetes Mellitus Type 2, Gall Bladder Disease, Gastroesophag
== END ==
PROVIDERS: Visit Provider Clinical Nurse Specialist Family Health
DX: M51.16 Intervertebral disc disorders with radiculopathy, lumbar region (principal)
CPT/HCPCS: 99212

== ENCOUNTER → 2019-10-18 12:24 | Outpatient (CLI) | payer BC, SELFPAY ==
--- NOTE | 2019-10-18 12:29 | XR_ITS ---
PROCEDURE: XR CHEST 2V CLINICAL HISTORY: SOA COMPARISON: ECHO ADULT from 09/11/2016 CXR CHEST(2 VIEWS-NOT PORTABLE) from 12/24/2016 CXR2V XR chest 2V from 07/11/2018 Chest from 01/16/2019 XR CHEST PORTABLE from 10/03/2019 FINDINGS: There is mild cardiomegaly without Failure. Increased markings are present in the right middle lobe region consistent with atelectasis or infiltrate. There is also increased density in the left lung base suggesting consolidation in the left lower lobe laterally. There is silhouetting out of the left hemidiaphragm laterally. No acute bony abnormalities. IMPRESSION: Patchy infiltrate in the right middle lobe with consolidation in the left lung base laterally suggesting pneumonia. The findings are worse compared to the previous exam. Consider chest CT for confirmation Dictated by: Veto Zhang MD 10/18/2019 13:25 Electronically signed by Veto Zhang MD in [place] 10/18/2019 13:25
== END ==
PROVIDERS: PCP Physician Assistant; Visit Provider Physician Assistant
DX: J18.9 Pneumonia, unspecified organism (principal)
CPT/HCPCS: 71046

== ENCOUNTER → 2019-10-24 16:54 | Outpatient (CLI) | payer BC, SELFPAY ==
[2019-10-25 15:56] LABS: Hemoglobin A1C 9.5 % (4.0-6.0)
== END ==
PROVIDERS: Visit Provider Physician Assistant
DX: E11.65 Type 2 diabetes mellitus with hyperglycemia (principal); Z79.4 Long term (current) use of insulin; Z79.84 Long term (current) use of oral hypoglycemic drugs
CPT/HCPCS: 83036

== ENCOUNTER → 2019-11-08 10:04 | Outpatient (POV) | payer BC, SELFPAY ==
--- NOTE | 2019-11-08 11:14 | HMH.VVPMSO ---
[facility] Virtual Visit SOAP Consent for virtual visit:: With the recent concerns about the COVID-19, we are trying to minimize exposure to you by shifting to telehealth appointments whenever possible. It restricts me from seeing you in person, but the trade off is protecting you during this pandemic. Can you see and hear me okay, and do you consent to this option? If not, I would be happy to see if we can reschedule your appointment in the future, when feasible. Has patient consented to this virtual visit?: Yes Subjective:: Patient is a pleasant 44-year-old white male who presents today for follow-up. He has been on Lyrica and we increased at his last visit which has not been that beneficial for him. Patient is having a lot of difficulty with sleeping. Patient and I discussed a short-term prescription of tramadol. We will try this and see if this is beneficial. He is a 515 pounds and working his way towards gastric bypass surgery we discussed spinal cord stimulation in the past I do believe that would be the most beneficial along with weight loss. Patient and I discussed that we would not be putting him on medication for long-term. He rates his pain a 7 out of 10 today. ROS General: no recent weight change, no fever, no sleep disturbances Respiratory: no cough, no shortness of air, no recurring pulmonary infections Cardiovascular/Peripheral Vascular: No chest pain, No palpitations, no edema, no shortness of breath. Gastrointestinal: no new onset incontinence, normal bowel movements reported Genitourinary: no new onset incontinence Musculoskeletal: Back pain, leg pain Psychiatric: normal mood/ affect, [denies depression], [denies anxiety] Neurological: [denies new onset weakness in extremities], [denies new onset balance issues] Objective:: Physical exam: Constitutional: Healthy appearing, well-developed, alert, in no acute distress Psychiatric: Judgment and insight intact, Alert and oriented x4 Mood and affect: Mood normal, affect appropriate Head and face: Inspection: Normocephalic atraumatic, extraocular movement intact Respiratory: Breathing nonlabored, nondyspneic Cardiovascular: No cyanosis, clubbing, or edema observed Skin: Head and neck: Skin with no lesions or rash observed Gait: Able to walk without assistive device: Able to heel and toe walk Neurologic: Sensation grossly intact per patient Musculoskeletal: Decreased range of motion lumbar spine noted Assessment:: Degenerative disc disease lumbar spine lumbar radiculopathy Plan:: We will give the patient tramadol 50 mg 1-2 tabs 3 times a day we will follow-up with him in 3 months reassess his symptoms at that time is been instructed to call the office if he has any issues prior to his next appointment. Patient has been prescribed a controlled substance after being counseled on the medication, medication safety, and possible side effects. ESTUARDO report has been obtained and reviewed prior to prescription and found to be appropriate. Opioid contract was reviewed and signed by the patient, and that they have agreed to all of the terms set forth by our compliance program. Dr. Diaz has reviewed this note and agrees with this plan of care. This note was dictated using voice recognition software and may contain errors or omissions This encounter was performed as a telemedicine visit via secure 2 way video and audio to minimize risk and transmission of Covid-19. The patient and we understand the limitations of a telemedicine visit including inability to check reflexes, possibly missing subtle findings on physical exam. Alternative options were presented to the patient and the patient elected to proceed with the visit. We specifically discussed risk factors for Covid-19 including age, heart or lung disease, diabetes, immunosuppression and travel. We also discussed that NSAIDs may worsen Covid-19 infection symptoms and that they should not be used to treat Covid-19 symptoms. Patient
== END ==
PROVIDERS: Visit Provider Clinical Nurse Specialist Family Health
DX: M51.16 Intervertebral disc disorders with radiculopathy, lumbar region (principal)
CPT/HCPCS: 99212

== ENCOUNTER 2019-11-14 10:05 | Inpatient (IN) | payer BC, SELFPAY ==
[2019-11-14] VITALS (9 sets, daily range): BP systolic 148–157; BP diastolic 85–105; PULSE 68–94; RESP 16–38; TEMP 36.6–37.4; O2SAT 88–99; BMI 67.8; BMI 71.8
--- NOTE | 2019-11-14 10:16 | XR_ITS ---
PROCEDURE: XR CHEST PORTABLE CLINICAL HISTORY: sob Shortness of breath COMPARISON: Chest from 01/16/2019 XR CHEST PORTABLE from 10/03/2019 XR CHEST 2V from 10/18/2019 FINDINGS: Study is somewhat limited technically due to patient's body habitus and technique. Study is obtained in a lordotic position. There is cardiomegaly without obvious failure. There are atelectatic changes in the right lung base. IMPRESSION: Cardiomegaly with right basilar atelectasis Dictated by: Veto Zhang MD 11/14/2019 11:47 Electronically signed by Veto Zhang MD in [place] 11/14/2019 11:47
--- NOTE | 2019-11-14 10:22 | ECG_ITS ---
APPROVED REPORT Exam: Resting ECG HR:92 bpm ECG Measurements Heart Rate 92 AXES AK 172 P 15 QRSd 96 QRS -51 QT 392 T 24 QTc 484 <Conclusion> Normal sinus rhythm Left axis deviation LAHB Abnormal ECG Electronically signed by : Lui Garcia, 11/15/2019 08:59:05
[2019-11-14 10:37] LABS: Basophils # 0.1 K/mm3 (0-0.2); Basophils % 1.7 % (0.1-2.0); Eosinophils # 0.1 K/mm3 (0.0-0.4); Eosinophils % 1.5 % (0.1-12.0); Hematocrit 38.4 % (42.0-52.0); Hemoglobin 12.9 g/dL (14.1-18.0); Lymphocytes # 0.6 K/mm3 (0.7-4.5); Lymphocytes % 8.5 % (10-50); Mean Corpuscular HGB Conc 33.7 g/dL (31.8-35.4); Mean Corpuscular Hemoglobin 29.1 pg (27.0-31.2); Mean Corpuscular Volume 86.3 fl (80-94); Mean Platelet Volume 9.6 fl (7.4-10.4); Monocytes # 0.5 K/mm3 (0.1-1.0); Monocytes % 6.8 % (1.7-9.3); Neutrophils # 5.5 K/mm3 (1.8-7.8); Neutrophils % 81.5 % (37.0-80.0); Platelet Count 146 K/mm3 (142-424); Red Blood Count 4.45 M/mm3 (4.60-6.20); Red Cell Distribution Width 16.1 % (11.5-17.5); White Blood Count 6.8 K/mm3 (4.8-10.8)
[2019-11-14 10:40] LABS: Potassium 3.2 mmoL/L (3.5-5.1); Sodium 119 mmol/L (136-145)
[2019-11-14 10:42] LABS: Bilirubin,Unconjugated 1.3 mg/dL (0.0-1.1); Blood Urea Nitrogen 8 mg/dl (9-20); Creatinine Clearance Estimated 264 mL/min (50-200); Estimated Glomerular Filt Rate 236 ml/min (>60); GFR (African American) 285 ML/MIN (>60)
[2019-11-14 10:43] LABS: Alanine Aminotransferase 44 U/L (12-78); Alkaline Phosphatase 79 U/L (38-126); Anion Gap 17.2 mEq/L (5-15); Aspartate Amino Transferase 57 U/L (17-59); Bilirubin,Direct 0.5 mg/dl (0.0-0.4); Bilirubin,Indirect 1.3 mg/dL (0.0-0.9); Bilirubin,Total 1.8 mg/dl (0.2-1.3); Calcium 8.8 mg/dl (8.4-10.2); Carbon Dioxide 34 mmol/L (22.0-30.0); Chloride 71 mmol/L (98-107); Glucose 321 mg/dl (74-100); Total Protein,Serum 7.5 g/dl (6.3-8.2)
[2019-11-14 10:51] LABS: Ethyl Alcohol < 10 mg/dl (0-10)
[2019-11-14 10:56] LABS: Troponin I < 0.01 ng/ml (0.00-0.034)
--- NOTE | 2019-11-14 11:02 | HMH.EDSOB ---
ED Disposition Clinical Impression: Acute exacerbation of chronic obstructive airways disease, Pneumonia, Smoker unmotivated to quit, Left lower lobe pneumonia, Sepsis Disposition: Admitted as Observation Condition on Discharge: Good Instructions: Pneumonia-Adult Additional Instructions: Spoke to Dr. Aguayo for admission for this patient Referrals: Chintan Aguayo MD [Primary Care Provider] - - Critical Care Critical Care Time: No Attestation: On 11/14/19, the high probability of a clinically significant, sudden or life threatening deterioration of the following system(s) required my full and direct attention, intervention and personal management. The time I documented below is in addition to time spent performing reported procedures but includes the following listed in this critical care notation. Medical Decision Making - Medical Records Medical records reviewed: Yes: I reviewed the patient's medical records. - Sy Inquiry Pt receiving controlled substance: No Vital Signs: 11/14/19 10:16 11/14/19 11:34 Temperature 99.4 F Temperature Source Oral Pulse Rate [Left Radial] 94 H 90 Respiratory Rate 38 H 28 H Blood Pressure [Right Arm] 156/105 H 154/85 H Blood Pressure Mean [Right Arm] 122 108 Blood Pressure Position [Right Arm] Sitting Sitting 02 Sat by Pulse Oximetry 94 L 93 L Oxygen Delivery Method Room Air Nasal Cannula - Lab Data Lab results reviewed: Yes: I reviewed the patient's lab results. Lab Results 11/14/19 10:30: WBC 6.8, RBC 4.45 L, Hgb 12.9 L, Hct 38.4 L, MCV 86.3, MCH 29.1, MCHC 33.7, RDW 16.1, Plt Count 146, MPV 9.6, Neut % (Auto) 81.5 H, Lymph % (Auto) 8.5 L, [place] % (Auto) 6.8, Eos % (Auto) 1.5, Baso % (Auto) 1.7, Neut # (Auto) 5.5, Lymph # (Auto) 0.6 L, [place] # (Auto) 0.5, Eos # (Auto) 0.1, Baso # (Auto) 0.1 11/14/19 10:30: Sodium 119 L, Potassium 3.2 L, Chloride 71 L, Carbon Dioxide 34 H, Anion Gap 17.2 H, BUN 8 L, Creatinine 0.40 L, Estimated Creat Clear 264, Estimated GFR 236, Est GFR ( Amer) 285, Glucose 321 H, Calcium 8.8, Total Bilirubin 1.8 H, Direct Bilirubin 0.5 H, Conjugated Bilirubin 0.0, Indirect Bilirubin 1.3 H, Unconjugated Bilirubin 1.3 H, AST 57, ALT 44, Alkaline Phosphatase 79, Troponin I < 0.01, Total Protein 7.5, Albumin 4.0 11/14/19 10:30: Plasma/Serum Alcohol < 10 11/14/19 10:30: NT-Pro-B Natriuret Pep 87.0 11/14/19 11:10: Lactate 4.2 H 11/14/19 11:30: Urine Color Yellow, Urine Appearance Clear, Urine pH 5.5, Ur Specific [place] 1.010, Urine Protein Negative, Urine Glucose (UA) 2+, Urine Ketones Negative, Urine Blood Negative, Urine Nitrate Negative, Urine Bilirubin Negative, Urine Urobilinogen 0.2, Ur Leukocyte Esterase Negative, Urine RBC 3-5, Urine WBC Occasional, Ur Squamous Epith Cells Occasional, Urine Bacteria None Result diagrams: 11/14/19 10:30 11/14/19 10:30 Orders (Tests/Meds): ED MEDICATIONS Generic Name Dose Route Start Last Admin Trade Name Freq PRN Reason Stop Dose Admin Sodium Chloride 2,330 mls @ 1,165 mls/hr 11/14/19 11:39 11/14/19 11:50 Sod Chlor 0.9% 1000ml Bag 30 ml/kg infuse over 2 hr (2330 ml) 11/14/19 13:38 1,165 mls/hr IV Administration .Q2H ONE ORDERS Category Date Time Status Troponin I Q3H Lab 11/14/19 13:30 Ordered Troponin I Q3H Lab 11/14/19 16:30 Ordered Blood Culture Stat Micro 11/14/19 11:10 Received - Radiology Data #1 Image(s): Chest Preliminary Findings: Abnormal (Patient has left lower lobe atelectasis on his AP view or possible developing infiltrate.) - Tissue Perfus/Sepsis Re-Eval Sepsis Re-Evaluation Performed: Yes Date Performed: 11/14/19 Time Performed: 13:35 Medical Decision Narrative: Spoke to Dr. Aguayo for admission for this patient for developing left lower lobe pneumonia, patient did meet to the sirs criteria upon presentation to the ED with tachycardia and tachypnea. Patient does remain stable regarding blood pressure patient was afebrile and negative white c
[2019-11-14 11:28] LABS: Lactic Acid 4.2 mmol/L (0.7-2.1)
--- NOTE | 2019-11-14 11:59 | XR_ITS ---
PROCEDURE: XR CHEST 2V CLINICAL HISTORY: sob Shortness of breath COMPARISON: XR CHEST PORTABLE from 10/03/2019 XR CHEST 2V from 10/18/2019 XR CHEST PORTABLE from 11/14/2019 FINDINGS: There are low lung volumes. Unremarkable cardiovascular structures. Patchy density is present in the left lung base consistent with atelectasis and/or infiltrate. The remaining lungs are clear. No acute bony abnormalities. IMPRESSION: Left basilar atelectasis and/or infiltrate with low lung volumes Dictated by: Veto Zhang MD 11/14/2019 12:51 Electronically signed by Veto Zhang MD in [place] 11/14/2019 12:51
--- NOTE | 2019-11-14 12:26 | PC.NURSE ---
pt return from xray
[2019-11-14 12:41] LABS: Microscopic, Urine URINE MICROSCOPIC (MICROSCOPIC)
[2019-11-14 12:42] LABS: Appearance,Urine CLEAR (Clear); Bilirubin,Urine Negative (Negative); Blood, Urine Negative (Negative); Color,Urine YELLOW (Yellow); Glucose,Urine (UA) 2+ (Negative); Ketones,Urine Negative (Negative); Leukocyte Esterase,Urine Negative (Negative); Nitrate,Urine Negative (Negative); PH,Urine 5.5 (5.0-8.5); Protein,Urine Negative (Negative); Urobilinogen,Urine 0.2 EU/dl (0.2)
[2019-11-14 12:52] LABS: Squamous Epithelial Cell,Urine Occasional #/hpf (0-5); WBC,Urine Occasional #/hpf (0-3)
--- NOTE | 2019-11-14 13:21 | PC.NURSE ---
JONELLE RUSH speaking with Dr. Aguayo
--- NOTE | 2019-11-14 14:30 | PC.NURSE ---
report called to floor
[2019-11-14 14:34] LABS: Troponin I < 0.01 ng/ml (0.00-0.034)
--- NOTE | 2019-11-14 14:43 | P.CONPHA_ITS ---
[facility] Pharmacy VTE Monitoring - Patient Demographics Admission date: 11/14/19 Report Date: 11/14/19 Time: 14:43 Allergies/Adverse Reactions: Patient Allergies No Known Allergies Allergy (Verified 10/24/19 10:51) Height: 1.83 m Weight: 226.796 kg Patient Problems: Current Active Problems Pneumonia (Acute) Acute exacerbation of chronic obstructive airways disease (Acute) Smoker unmotivated to quit (Acute) Left lower lobe pneumonia (Acute) Sepsis (Acute) - VTE Risk Labs: VTE Related Lab Results Hgb 12.9 g/dL (14.1-18.0) L 11/14/19 10:30 Hct 38.4 % (42.0-52.0) L 11/14/19 10:30 Plt Count 146 K/mm3 (142-424) 11/14/19 10:30 BUN 8 mg/dl (9-20) L 11/14/19 10:30 Creatinine 0.40 mg/dl (0.66-1.25) L 11/14/19 10:30 Estimated Creat Clear 264 mL/min (50-200) 11/14/19 10:30 Clinical Trial Participant: No - Prophylaxis VTE Prophylaxis Ordered?: Yes Types of VTE Prophylaxis: TEDS Knee High
--- NOTE | 2019-11-14 14:55 | HMH.PHAINT ---
HOME MEDICATION RECONCILIATION COMPLETED USING LIST FROM HOME PHARMACY AND LISTS FROM DR. IBANEZ'S OFFICE AND [facility]ISITS TO [facility].
[2019-11-14 15:03] LABS: Mycoplasma Pneumo IGM (Rapid) Non-Reactive (Non-Reactiv)
[2019-11-14 15:11] LABS: Reflex Lactic Add Lactic Reflex
--- NOTE | 2019-11-14 15:17 | PC.NURSE ---
called the floor and they advised they were waiting on housekeeping to make the bed
[2019-11-14 15:56] LABS: Lactic Acid Follow Up (RFLX 1) 2.1 mmol/L (0.7-2.1)
[2019-11-14 17:16] LABS: Troponin I < 0.01 ng/ml (0.00-0.034)
[2019-11-14 17:43] LABS: Reflex Lactic (2 hrs) Add Lactic Reflex
[2019-11-14 18:10] LABS: Lactic Acid Follow up (RFLX 2) 1.8 mmol/L (0.7-2.1)
--- NOTE | 2019-11-14 19:13 | PC.NURSE ---
report given to monie
--- NOTE | 2019-11-14 19:59 | HMH.HP ---
*Admission Date: 11/14/19 *Chief complaint: cough *History of present illness: this pt has been treated as op x2 and has persistent sx- cough and sob - has tob use and diabetes -pt was seen in the ed - -year-old male presents with shortness of breath and fatigue. He states that he was recently diagnosed with pneumonia 2 weeks ago and he states he is really emptying well he is improved but he still feels short of breath especially with physical exertion. He denies any subjective or objective fevers he says he has a slight nonproductive cough. And he does get short of breath and he also states that his legs are swelling he also stated he felt some chest tightness which was in the substernal area and rated that's tightness pain as 3 out of 10. It is exacerbated by movement and alleviated by rest patient denies any cardiac history. Patient also states he has had a stress test done before. Patient does have diabetes mellitus type 2 hyperlipidemia and hypertension. Patient denies any recent sore throat or headache. Patient also denies any arthralgias or myalgias pt with severe sepsis with organ dysfunction and was admitted with ivf and abx - [facility] History I have reviewed the patient's past medical history: Yes Medical History: Reports:: Anxiety, Depression, Diabetes Mellitus Type 2, Gall Bladder Disease, Gastroesophageal Reflux Disease(GERD), Hyperlipidemia, Hypertension Denies:: Cancer, Diabetes Mellitus Type 1, MRSA, Seizures *Have you ever received a pneumonia vaccine?: Yes *Have you received a flu vaccine this season?: No Other Medical History: Reports: Other. Denies: Blood Transfusion Reaction Other Surgeries: Yes: Cholecystectomy, Colonoscopy Amputation: No Fractures: Yes - *Social History Educational Level: Completed High School Smoking Status: Current every day smoker Tobacco Type: cigarettes # Packs/Day (cigarettes): 1 #Yrs smoked (if former smoker): 20 Alcohol Intake: current Alcohol Intake Frequency:: 3 or more drinks per day Substance Use Type: denies use, marijuana *Occupational Status:: employed Housing: house Household Members: spouse, children *Travel in the last 8 weeks: None - Psychiatric History Pschychiatric History:: Reports:: Anxiety, Depression Family Hx:: Hypertension, Substance abuse, Alcoholism Review of Systems - Review of Systems Review of systems:: pertinent systems reviewed and negative unless documented below - Constitutional Denies fever(s) - Eyes Denies change in vision - ENT Denies sore throat - *Cardiovascular Reports shortness of breath, Denies chest pain with activity - *Respiratory Reports cough, Denies coughing up blood - *Gastrointestinal Denies abdominal pain - *Genitourinary Denies blood in urine - *Musculoskeletal Denies joint pain - Integumentary/Breasts Denies dry skin, Denies rash - *Neurologic Denies dizziness - Psychiatric Denies confusion Meds Home Medications Medication Instructions Recorded Confirmed Type [BD Insulin Syringe] 0 1000units .ROUTE .MEDSUPPLY 11/19/18 11/14/19 History albuterol sulfate 90 mcg/actuation 1 - 2 puff INHALATION Q4-6H PRN #1 07/21/19 11/14/19 Rx aerosol inhaler inh lisinopril 20 1 tab PO DAILY #90 tab 08/19/19 11/14/19 Rx mg-hydrochlorothiazide 25 mg tablet Furosemide [Furosemide 40MG tAB] 40 mg PO DAILY 10/03/19 11/14/19 History LORazepam [Lorazepam] 1 mg PO BIDP PRN 10/03/19 11/14/19 History insulin human U-100 NPH-regulr 85 unit SQ TID ml 10/24/19 11/14/19 History 70-30 mix 100 unit/mL subcutaneous susp Atorvastatin Calcium [Lipitor 40mg 40 mg PO HS 11/14/19 11/14/19 History Tablet] Metformin HCl [Glucophage] 1,000 mg PO BID 11/14/19 11/14/19 History Metoclopramide HCl [Metoclopramide 10 mg PO QID 11/14/19 11/14/19 History 10mg Tablet] Omeprazole [Omeprazole 40mg 40 mg PO BID 11/14/19 11/14/19 History Capsule] Tramadol HCl [Tramadol 50mg 150 mg PO TID 11/14/19 11/14/19 History Tab
--- NOTE | 2019-11-14 21:14 | PC.NURSE ---
Pt given neb tx and sputum cup, he states he feels like he may be able to cough up some sputum shortly. Cup left in patients hand at bedside.
[2019-11-14 22:36] LABS: POC Glucose,Bedside 352 (70-110)
[2019-11-15] VITALS (27 sets, daily range): BP systolic 120–163; BP diastolic 55–99; PULSE 74–140; RESP 16–23; TEMP 36.6–36.9; O2SAT 90–97; BMI 70.8
--- NOTE | 2019-11-15 00:56 | ECG_ITS ---
APPROVED REPORT Exam: Resting ECG HR:131 bpm ECG Measurements Heart Rate 131 AXES QRSd 116 QRS -43 QT 352 T 32 QTc 519 <Conclusion> Atrial fibrillation with rapid ventricular response Left axis deviation Cannot rule out Anterior infarct, age undetermined Abnormal ECG Electronically signed by : Asad Judge, 11/16/2019 08:22:36
--- NOTE | 2019-11-15 02:04 | PC.NURSE ---
He was transferred to stepdown after cardiac rhythm change to uncontrolled afib. Given cardizem bolus and is now on a cardizem gtt. He is sitting up in the chair per his request. 2+ edema on BLE with pulse location marked. He is A&Ox4. Received one time dosage of pain medication for back pain. Continues on RA.
--- NOTE | 2019-11-15 02:56 | PC.NURSE ---
His oxygen sats decreased into lower 80s while asleep. Rebound quickly.
--- NOTE | 2019-11-15 05:21 | PC.NURSE ---
A&OX3. PERRLA, VISITING PROFESSOR EQUAL BILAT. LUNGS DIMINISHED PER AUSCULTATION, TOLERATED RA WELL UNTIL AROUND 2200, 2LNC APPLIED PER RT R/T O2SATS IN 80'S. TOLERATED 2LNC WELL. ABDOMEN NOTED OBESE BUT NOT DISTENDED, ACTIVE BOWEL SOUNDS, SOFT AND NONTENDER PER PALPATION. UO ADEQUATE FOLLOWING ADMINISTRATION OF LASIX AT BEGINNING OF SHIFT. RADIAL PULSES +2, NOT ABLE TO PALPATE PEDAL PULSES, DOPPLER USED AND PEDAL PULSES AUSCULTATED PER DOPPLER, AREAS MARKED FOR REFERENCE. EDEMA NOTED ABDOMEN, BLE AND BILAT FEET. REDNESS NOTED ANTERIOR PORTION OF FEET. NSR NOTED PER JEWELRY SALES ASSOCIATE UNTIL 0047, AFIB DETECTED AT 0047, HR UNCONTROLLED. PT DENIES HX OF AFIB. ONLY COMPLAINTS OF ASSESSMENT WERE HORNER AND ACID REFLUX, BURNING OF MY CHEST. I USUALLY TAKE SOME MEDICATIONS AT HOME FOR HEARTBURN AND I THINK IT IS JUST MY HEARTBURN ACTING UP. EKG WAS OBTAINED AND REVIEWED/SIGNED PER ER PHYSICIAN. NO ORDERS GIVEN AT THIS TIME. MD ORDER BUILDER LOADER NOTIFIED OF NEW ONSET OF AFIB AND PT'S COMPLAINTS, ORDERS OBTAINED: MOVE TO STEP DOWN, 20 MG CARDIZEM IV BOLUS X1 TIME, INITIATE CARDIZEM GTT, ADMINISTER 40 MG PROTONIX PO X1 TIME. REPORT WAS GIVEN TO MARY MICHAUD RNMonae CALL AT [phone].
--- NOTE | 2019-11-15 05:32 | PC.NURSE ---
PT REPORTED URINATING IN TOILET AT BEGINNING OF SHIFT, VOID WAS UNMEASURED.
[2019-11-15 06:22] LABS: POC Glucose,Bedside 372 (70-110)
[2019-11-15 06:54] LABS: Basophils # 0.1 K/mm3 (0-0.2); Basophils % 0.6 % (0.1-2.0); Eosinophils % 0.1 % (0.1-12.0); Hematocrit 43.2 % (42.0-52.0); Hemoglobin 13.7 g/dL (14.1-18.0); Lymphocytes # 0.3 K/mm3 (0.7-4.5); Lymphocytes % 4.3 % (10-50); Mean Corpuscular HGB Conc 31.8 g/dL (31.8-35.4); Mean Corpuscular Hemoglobin 29.3 pg (27.0-31.2); Mean Corpuscular Volume 92.3 fl (80-94); Mean Platelet Volume 7.9 fl (7.4-10.4); Monocytes # 0.2 K/mm3 (0.1-1.0); Monocytes % 3.1 % (1.7-9.3); Neutrophils % 91.9 % (37.0-80.0); Platelet Count 171 K/mm3 (142-424); Red Blood Count 4.68 M/mm3 (4.60-6.20); Red Cell Distribution Width 16.2 % (11.5-17.5); White Blood Count 7.6 K/mm3 (4.8-10.8)
[2019-11-15 06:57] LABS: MANUAL DIFFERENTIAL MANUAL DIFFERENTIAL (MANUAL DIFF)
[2019-11-15 07:15] LABS: Potassium 4.2 mmoL/L (3.5-5.1); Sodium 129 mmol/L (136-145)
[2019-11-15 07:18] LABS: Alanine Aminotransferase 37 U/L (12-78); Albumin Level 4.1 g/dl (3.5-5.0); Albumin/Globulin Ratio 1.1 (1.1-1.8); Alkaline Phosphatase 89 U/L (38-126); Anion Gap 14.2 mEq/L (5-15); Aspartate Amino Transferase 60 U/L (17-59); Bilirubin,Total 1.3 mg/dl (0.2-1.3); Blood Urea Nitrogen 8 mg/dl (9-20); Calcium 9.2 mg/dl (8.4-10.2); Carbon Dioxide 39 mmol/L (22.0-30.0); Creatinine Clearance Estimated 218 mL/min (50-200); Estimated Glomerular Filt Rate 182 ml/min (>60); GFR (African American) 221 ML/MIN (>60); Globulin 3.9 g/dL (1.3-3.2); Glucose 369 mg/dl (74-100)
[2019-11-15 07:22] LABS: Chloride 80 mmol/L (98-107)
--- NOTE | 2019-11-15 07:55 | HMH.CNCARD ---
History of Present Illness Consult date: 11/15/19 Requesting physician: Chintan Aguayo Consult reason: shortness of breath Chief complaint: Pneumonia, A. fib with RVR Additional Medical History:: 1. Mild coronary artery disease by cardiac catheterization 2016 2. Morbid obesity with plans for gastric sleeve later this year 3. Diabetes mellitus, insulin requiring 4. Hypertension 5. Hyperlipidemia 6. GERD 7. Anxiety/depression 8. Tobacco use History of present illness: this pt has been treated as op x2 and has persistent sx- cough and sob - has tob use and diabetes -pt was seen in the ed - -year-old male presents with shortness of breath and fatigue. He states that he was recently diagnosed with pneumonia 2 weeks ago and he states he is really emptying well he is improved but he still feels short of breath especially with physical exertion. He denies any subjective or objective fevers he says he has a slight nonproductive cough. And he does get short of breath and he also states that his legs are swelling he also stated he felt some chest tightness which was in the substernal area and rated that's tightness pain as 3 out of 10. It is exacerbated by movement and alleviated by rest patient denies any cardiac history. Patient also states he has had a stress test done before. Patient does have diabetes mellitus type 2 hyperlipidemia and hypertension. Patient denies any recent sore throat or headache. Patient also denies any arthralgias or myalgias pt with severe sepsis with organ dysfunction and was admitted with ivf and abx - The above per Dr. Aguayo Patient relates increasing shortness of breath over the last few days after being diagnosed and treated with pneumonia 2 weeks ago. Patient relates occasional chest soreness and back discomfort between the shoulder blades but does not seem to be a significant symptom for him. Patient was noted to have transitioned from sinus rhythm to atrial fibrillation with a rapid ventricular response last evening. He is currently on IV diltiazem with rates in the 110 to 120 bpm range with blood pressure in the 120 mmHg systolic range. [facility] History Medical History: Reports:: Anxiety, Depression, Diabetes Mellitus Type 2, Gall Bladder Disease, Gastroesophageal Reflux Disease(GERD), Hyperlipidemia, Hypertension Denies:: Cancer, Diabetes Mellitus Type 1, MRSA, Seizures *Have you ever received a pneumonia vaccine?: Yes *Have you received a flu vaccine this season?: No Other Medical History: Reports: Other. Denies: Blood Transfusion Reaction Other Surgeries: Yes: Cholecystectomy, Colonoscopy Amputation: No Fractures: Yes - *Social History Educational Level: Completed High School Smoking Status: Current every day smoker Tobacco Type: cigarettes # Packs/Day (cigarettes): 1 #Yrs smoked (if former smoker): 20 Alcohol Intake: current Alcohol Intake Frequency:: 3 or more drinks per day Substance Use Type: denies use, marijuana *Occupational Status:: employed Housing: house Household Members: spouse, children *Travel in the last 8 weeks: None - Psychiatric History Pschychiatric History:: Reports:: Anxiety, Depression Family Hx:: Hypertension, Substance abuse, Alcoholism Meds Home Medications Medication Instructions Recorded Confirmed Type [BD Insulin Syringe] 0 1000units .ROUTE .MEDSUPPLY 11/19/18 11/14/19 History albuterol sulfate 90 mcg/actuation 1 - 2 puff INHALATION Q4-6H PRN #1 07/21/19 11/14/19 Rx aerosol inhaler inh lisinopril 20 1 tab PO DAILY #90 tab 08/19/19 11/14/19 Rx mg-hydrochlorothiazide 25 mg tablet Furosemide [Furosemide 40MG tAB] 40 mg PO DAILY 10/03/19 11/14/19 History LORazepam [Lorazepam] 1 mg PO BIDP PRN 10/03/19 11/14/19 History insulin human U-100 NPH-regulr 85 unit SQ TID ml 10/24/19 11/14/19 History 70-30 mix 100 unit/mL subcutaneous susp Atorvastatin Calcium [Lipitor 40mg 40 mg PO HS 11/14/19 11/14/19 History Tablet] Metformin HCl [Glucophage] 1,00
--- NOTE | 2019-11-15 08:00 | CA_ITS ---
APPROVED REPORT EXAM: Comprehensive 2D, Doppler, and color-flow Echocardiogram Web Marketing Manager: Jing Crooks RT(R) Ht: 6 ft 1 in Wt: 544lbs BSA: 3.29 BP: 157/102 mmHg Indications: Pneumonia, smoker, fatigue, edema, HTN, DM, SOB, morbid obesity, hyperlipidemia, GERD, anxiety Echo Enhancing Agent Indication: Endocardial border delineation Agent(s) / Amount(s) Used: Definity 2 cc Comments: Definity contrast was utilized with limited results. Attempted multiple times with no change in visualization. M-Mode Dimensions RVDd 3.15 cm (0.9-2.6) LVDd 6.54 cm (3.5-5.7) LVDs 4.94 cm (3.5-5.7) IVSd 1.04 cm (0.6-1.1) PWd 1.04 cm (0.6-1.1) EF (Teich) 47.50% FS 24.50% EDV (Teich) 219.00 mL ESV (Teich) 115.00 mL Left Ventricle Technically difficult study because of the patient fact in poor acoustic windows, Definity contrast was tested delineate the endocardial surfaces. Left atrium is mildly enlarged, left ventricle is normal size, there is probably preserved left ventricular systolic function, visually estimated ejection fraction in biplane views is approximately 55%. Diastolic parameters are inconclusive. Right Ventricle Right atrium and right ventricle mildly enlarged with normal contractility. Aortic Valve Aortic valve is minimally thickened and fibrosed, there is no aortic stenosis or aortic insufficiency. Mitral Valve Mitral valve is grossly normal, there is mild mitral regurgitation. Tricuspid Valve Tricuspid valve is grossly normal, there is mild tricuspid regurgitation. Tricuspid regurgitation jet velocity is inadequate for calculation of the right ventricular systolic pressure. Pulmonic Valve Pulmonic valve is poorly visualized. Great Vessels Aortic root is normal size. Pericardium No significant pericardial effusion noted. Conclusion 1. Technically very difficult study because of the patient factors and poor acoustic windows, despite Definity contrast endocardial surfaces are very poorly visualized. 2. Mildly enlarged left atrium, normal left ventricular size, mild concentric left ventricular hypertrophy, visually estimated ejection fraction 55%. Diastolic parameters are inconclusive. 3. Mildly enlarged right ventricle with normal contractility 4. Mild mitral and tricuspid regurgitation. 5. No significant pericardial effusion noted. Electronically signed by : Bentley Prasad, 11/15/2019 19:35:10
--- NOTE | 2019-11-15 08:00 | PC.NURSE ---
verbal order received for pt to have dig .25mg. verified with Saulo Adames RN prior to administration
--- NOTE | 2019-11-15 08:23 | HMH.ACPN2 ---
Internal Medicine - PN: Subj *Date: 11/15/19 *Time: 08:45 Interval history: 44-year-old male patient sitting up in chair, satting 91% on 2 L per nasal cannula. He reports he does feel better today, he developed A. fib with RVR during the night Cardizem drip started after bolus cardiology consulted. Explained to patient that he will be inpatient and will not be discharged today, encouraged sputum sample. Tobacco cessation discussed Exam Vital signs and Labs for Last 24 Hours: Temp Pulse Resp BP Pulse Ox 98.4 F 122 H 16 163/91 H 97 11/15/19 00:50 11/15/19 07:50 11/15/19 04:00 11/15/19 06:00 11/15/19 06:55 Laboratory Results - last 24 hr 11/14/19 10:30: WBC 6.8, RBC 4.45 L, Hgb 12.9 L, Hct 38.4 L, MCV 86.3, MCH 29.1, MCHC 33.7, RDW 16.1, Plt Count 146, MPV 9.6, Neut % (Auto) 81.5 H, Lymph % (Auto) 8.5 L, [place] % (Auto) 6.8, Eos % (Auto) 1.5, Baso % (Auto) 1.7, Neut # (Auto) 5.5, Lymph # (Auto) 0.6 L, [place] # (Auto) 0.5, Eos # (Auto) 0.1, Baso # (Auto) 0.1 11/14/19 10:30: Sodium 119 L, Potassium 3.2 L, Chloride 71 L, Carbon Dioxide 34 H, Anion Gap 17.2 H, BUN 8 L, Creatinine 0.40 L, Estimated Creat Clear 264, Estimated GFR 236, Est GFR ( Amer) 285, Glucose 321 H, Calcium 8.8, Total Bilirubin 1.8 H, Direct Bilirubin 0.5 H, Conjugated Bilirubin 0.0, Indirect Bilirubin 1.3 H, Unconjugated Bilirubin 1.3 H, AST 57, ALT 44, Alkaline Phosphatase 79, Troponin I < 0.01, Total Protein 7.5, Albumin 4.0 11/14/19 10:30: Plasma/Serum Alcohol < 10 11/14/19 10:30: NT-Pro-B Natriuret Pep 87.0 11/14/19 10:30: Mycoplasma pneumon IgM Non-reactive 11/14/19 11:10: Lactate 4.2 H 11/14/19 11:30: Urine Color Yellow, Urine Appearance Clear, Urine pH 5.5, Ur Specific [place] 1.010, Urine Protein Negative, Urine Glucose (UA) 2+, Urine Ketones Negative, Urine Blood Negative, Urine Nitrate Negative, Urine Bilirubin Negative, Urine Urobilinogen 0.2, Ur Leukocyte Esterase Negative, Urine RBC 3-5, Urine WBC Occasional, Ur Squamous Epith Cells Occasional, Urine Bacteria None 11/14/19 14:00: Troponin I < 0.01 11/14/19 15:40: Lactate 2.1 11/14/19 16:41: Troponin I < 0.01 11/14/19 17:54: Lactate 1.8 11/14/19 22:20: POC Glucose 352 H* 11/15/19 06:15: POC Glucose 372 H* 11/15/19 06:28: Sodium 129 L, Potassium 4.2 D, Chloride 80 L, Carbon Dioxide 39 H, Anion Gap 14.2, BUN 8 L, Creatinine 0.50 L D, Estimated Creat Clear 218, Estimated GFR 182, Est GFR ( Amer) 221 D, Glucose 369 H, Calcium 9.2, Total Bilirubin 1.3, AST 60 H, ALT 37, Alkaline Phosphatase 89, Total Protein 8.0, Albumin 4.1, Globulin 3.9 H, Albumin/Globulin Ratio 1.1 11/15/19 06:28: WBC 7.6, RBC 4.68, Hgb 13.7 L, Hct 43.2, MCV 92.3, MCH 29.3, MCHC 31.8, RDW 16.2, Plt Count 171, MPV 7.9, Neut % (Auto) 91.9 H, Lymph % (Auto) 4.3 L, [place] % (Auto) 3.1, Eos % (Auto) 0.1, Baso % (Auto) 0.6, Neut # (Auto) 7.0, Lymph # (Auto) 0.3 L, [place] # (Auto) 0.2, Eos # (Auto) 0.0, Baso # (Auto) 0.1 I & O for Last 24 hours: Intake & Output 11/12/19 11/13/19 11/14/1911/14/20 23:59 23:59 23:59 23:59 Intake Total 480 / 480 Output Total 5 / 182 Balance 480 / 480 -1825 / -1824 Weight 544 lb 8 oz - Constitutional no acute distress - *Routine HEENT Exam Head: Present: normocephalic. Absent: tenderness of temporal artery Eye: Present: EOMI, PERRL, normal accommodation. Absent: periorbital tenderness ENT: Present: mucous membranes moist. Absent: sinus tenderness - *Routine Neck Exam Present: full ROM, trachea midline. Absent: JVD, tracheal deviation - *Routine Respiratory Exam Present: CTA bilaterally, diminished air movement - *Routine Cardiovascular Exam Present: irregularly irregular. Absent: RRR - *Routine Abdominal Exam Present: normoactive bowel sounds, obese - *Routine Extremities Exam Present: edema Comments: BLE Edema - *Routine Skin Exam Present: intact - *Routine Neurological Exam Present: alert, oriented X3. Absent: altered mental status - Routine Ps
[2019-11-15 09:21] LABS: Lymphocytes % 5 % (10-50); Monocytes % 4 % (2-9); Neutrophils % 91 % (42-76); Platelet Estimate Normal; RBC Morphology Normal; Total Cells Counted 100
--- NOTE | 2019-11-15 09:54 | PC.NURSE ---
RT spoke with pt about producing sputum sample and pt stated he could not produce. Stated his cough was dry and nothing would come up. Sputum sample cup is at pt's bedside and pt stated he would cont. trying.
--- NOTE | 2019-11-15 12:28 | PC.NURSE ---
Called and spoke to Malcolm at 1216. notified that pt fsbs is 404 order to give 20 units of lispro then call . no new orders at this time from malcolm. spoke to malcolm again at 1224. in regards to pt requesting pain meds. pt states he has a general all over discomfort in his back and but. could not rate the pain at this time. states he is unable to stand for more than 2 minutes without a burning pain in his legs. (pt states the burning pain is his normal) malcolm states that he will discuss meds with dr garcia and return call
--- NOTE | 2019-11-15 13:15 | PC.NURSE ---
phone call returned from glenis at primary care office at 1230. order for lortab 1 tab q6h prn pain ordered. first med given at 1240
--- NOTE | 2019-11-15 15:06 | PC.NURSE ---
notified suma carranza at 1448 that the pt was now in NSR. hr 95. ekg obtained shows nsr. bp currently 135/75. currently weaning drip off of pt at this time
--- NOTE | 2019-11-15 15:14 | PC.NURSE ---
new orders diltiazem cd 240 bid. first dose to be at 6p then dc drip. per suma carranza keep pt on drip at 20ml/hr to monitor tolerance of dose
--- NOTE | 2019-11-15 15:15 | ECG_ITS ---
APPROVED REPORT Exam: Resting ECG HR:91 bpm ECG Measurements Heart Rate 91 AXES NV 160 P 27 QRSd 118 QRS -64 QT 400 T 59 QTc 492 <Conclusion> Normal sinus rhythm Low voltage QRS Incomplete right bundle branch block Left anterior fascicular block Late r wave progression Abnormal ECG Electronically signed by : Asad Judge, 11/16/2019 08:17:38
[2019-11-15 17:12] LABS: POC Glucose,Bedside 426 (70-110)
--- NOTE | 2019-11-15 17:20 | PC.NURSE ---
notified dr garcia at 1648 that pt fsbs was 426 and was ordered to have 20units lispro and call . also notified that the pt has converted and drip is to be dc at around 1830. no other orders at this time
--- NOTE | 2019-11-15 18:34 | PC.NURSE ---
starting at 1806 drip has been weaned from pt r/t cardiology order. pt has tolerated well thus far. will continue to monitor.
[2019-11-15 21:14] LABS: POC Glucose,Bedside 362 (70-110)
[2019-11-15 23:41] LABS: POC Glucose,Bedside 404 (70-110)
[2019-11-16] VITALS (21 sets, daily range): BP systolic 129–164; BP diastolic 79–95; PULSE 57–100; RESP 16–26; TEMP 36.2–36.9; O2SAT 86–100; BMI 73.6
--- NOTE | 2019-11-16 02:13 | PC.NURSE ---
patient was asleep in chair on 2 l nc sats dropped as low as 56% would return up to the 70s while still asleep, oxygen increased to 4 l nc, sats returned to low 80s. hr also changes to junctional rhythm with rate in the 50s. as soon as patient woke up patient hr and rhythm return to sr in the 70 and 80s. o2 sat return to 97-98% immediately. discussed importance of cpap usage at this time and instructed that i would be waking him frequently if needed. will continue to monitor.
[2019-11-16 02:57] LABS: POC Glucose,Bedside 366 (70-110)
--- NOTE | 2019-11-16 03:06 | PC.NURSE ---
in the last 45 minutes patient has had three episodes of sleep apnea requiring nurse to wake patient due to o2 sats remaining low as well as heart rate dropping as low 47. patient becoming more difficult to wake up and keep awake. discussed placing bipap on patient, patient agreeable. dr. garcia notified and rt notified. bipap placed. will continue to monitor.
--- NOTE | 2019-11-16 03:50 | PC.NURSE ---
0345 patient has continued to have a few bradycardiac issued even with bipap on only dropping into the 50s but remains in sinus. patient reaching up to the ceiling while asleep then awoke and took his bipap off, stated he cannot wear it any more today. 4 l nc placed back on patient he stated that i feel like if i go back to sleep i'm going to . patients eyes appears dazed, he is oriented x 4. dr. garcia notified of o2 sats and heart rate dropping as well as patients impending doom. dr garcia stated he will talk to dr. santillan in the am. no new orders received except to watch patient. will continue to monitor.
--- NOTE | 2019-11-16 04:18 | PC.NURSE ---
after patient spoke with , he state that he feels better and requested to go back on the bipap. bipap placed, since that time patient hospital monitor shows sr in the 60s with pacs and o2 sats remaining mid to high 90s on 45% fio2. will continue to monitor.
--- NOTE | 2019-11-16 04:21 | PC.NURSE ---
patient's has called twice over the last two hours concerned. family updated and questions answered.
--- NOTE | 2019-11-16 05:54 | PC.NURSE ---
patient has been resting well with bipap on, hr sustaining sr 60s-70s, o2 sats 95-99% with rr 16-19. will continue to monitor.
[2019-11-16 06:13] LABS: POC Glucose,Bedside 333 (70-110)
[2019-11-16 06:29] LABS: Basophils # 0.2 K/mm3 (0-0.2); Basophils % 2.7 % (0.1-2.0); Eosinophils # 0.1 K/mm3 (0.0-0.4); Eosinophils % 0.8 % (0.1-12.0); Hematocrit 40.9 % (42.0-52.0); Hemoglobin 12.9 g/dL (14.1-18.0); Lymphocytes % 11.8 % (10-50); Mean Corpuscular HGB Conc 31.5 g/dL (31.8-35.4); Mean Corpuscular Hemoglobin 29.1 pg (27.0-31.2); Mean Corpuscular Volume 92.4 fl (80-94); Mean Platelet Volume 7.9 fl (7.4-10.4); Monocytes # 0.8 K/mm3 (0.1-1.0); Monocytes % 9.3 % (1.7-9.3); Neutrophils # 6.5 K/mm3 (1.8-7.8); Neutrophils % 75.4 % (37.0-80.0); Platelet Count 191 K/mm3 (142-424); Red Blood Count 4.43 M/mm3 (4.60-6.20); Red Cell Distribution Width 15.9 % (11.5-17.5); White Blood Count 8.6 K/mm3 (4.8-10.8)
[2019-11-16 06:53] LABS: Blood Urea Nitrogen 15 mg/dl (9-20); Calcium 9.1 mg/dl (8.4-10.2); Chloride 82 mmol/L (98-107); Creatinine Clearance Estimated 151 mL/min (50-200); Estimated Glomerular Filt Rate 124 ml/min (>60); GFR (African American) 150 ML/MIN (>60); Glucose 343 mg/dl (74-100); Potassium 3.8 mmoL/L (3.5-5.1); Sodium 130 mmol/L (136-145)
[2019-11-16 07:00] LABS: Anion Gap 13.8 mEq/L (5-15); Carbon Dioxide 38 mmol/L (22.0-30.0)
--- NOTE | 2019-11-16 08:21 | XR_ITS ---
PROCEDURE: XR CHEST PORTABLE CLINICAL HISTORY: sob Shortness of breath COMPARISON: XR CHEST 2V from 10/18/2019 XR CHEST PORTABLE from 11/14/2019 XR CHEST 2V from 11/14/2019 FINDINGS: Very limited exam with poor inspiration and limited secondary to patient's body habitus. There is cardiomegaly. Atelectatic changes are present in the right lung base. Possible patchy infiltrate in the right perihilar region. Consider CT for more thorough evaluation due to patient's body habitus and poor inspiration.. IMPRESSION: Limited study with cardiomegaly and possible right perihilar infiltrate with right basilar atelectasis. Consider CT for more thorough evaluation Dictated by: Veto Zhang MD 11/16/2019 10:39 Electronically signed by Veto Zhang MD in [facility] 11/16/2019 10:39
--- NOTE | 2019-11-16 08:23 | HMH.ACPN2 ---
Internal Medicine - PN: Subj *Date: 11/16/19 *Time: 08:23 Interval history: This a.m. patient is very lethargic on BiPAP. Sternal rubs got minimal response. Stat ABG, chest x-ray, cardiac enzymes and covid-test ordered. vital signs stable. plan will be based on results Exam Vital signs and Labs for Last 24 Hours: Temp Pulse Resp BP Pulse Ox 97.4 F L 57 L 16 129/79 100 11/16/19 04:00 11/16/19 06:00 11/16/19 06:00 11/16/19 06:00 11/16/19 06:00 Laboratory Results - last 24 hr 11/15/19 06:28: Total Counted 100, Neutrophils % (Manual) 91 H, Lymphocytes % (Manual) 5 L, Monocytes % (Manual) 4, Platelet Estimate Normal, RBC Morphology Normal 11/15/19 12:13: POC Glucose 404 H* 11/15/19 16:55: POC Glucose 426 H* 11/15/19 20:16: POC Glucose 362 H* 11/16/19 02:50: POC Glucose 366 H* 11/16/19 06:04: POC Glucose 333 H* 11/16/19 06:05: Sodium 130 L, Potassium 3.8, Chloride 82 L, Carbon Dioxide 38 H, Anion Gap 13.8, BUN 15 D, Creatinine 0.70 D, Estimated Creat Clear 151, Estimated GFR 124, Est GFR ( Amer) 150 D, Glucose 343 H, Calcium 9.1 11/16/19 06:05: WBC 8.6, RBC 4.43 L, Hgb 12.9 L, Hct 40.9 L, MCV 92.4, MCH 29.1, MCHC 31.5 L, RDW 15.9, Plt Count 191, MPV 7.9, Neut % (Auto) 75.4, Lymph % (Auto) 11.8, [place] % (Auto) 9.3, Eos % (Auto) 0.8, Baso % (Auto) 2.7 H, Neut # (Auto) 6.5, Lymph # (Auto) 1.0, [place] # (Auto) 0.8, Eos # (Auto) 0.1, Baso # (Auto) 0.2 I & O for Last 24 hours: Intake & Output 11/13/19 11/14/19 11/15/19 11/16/19 11:59 11:59 11:59 11:59 Intake Total 860 / 860 1017 / 1017 Output Total 1825 / 1825 1000 / 1000 Balance -965 / -965 Weight 500 lb 544 lb 8 oz 534 lb 6 oz Microbiology Reports for the Last 24 Hours: Microbiology 11/14/19 11:10 Blood Blood Culture - Preliminary 11/14/19 11:10 Blood Blood Culture - Preliminary - Constitutional mild distress, morbidly obese - *Routine HEENT Exam Head: Present: normocephalic Eye: Present: PERRL ENT: Present: mucous membranes moist - *Routine Neck Exam Present: supple. Absent: lymphadenopathy - *Routine Respiratory Exam Present: decreased breath sounds, CTA bilaterally - *Routine Cardiovascular Exam Present: RRR - *Routine Abdominal Exam Present: soft, normoactive bowel sounds, obese, hernia. Absent: tenderness - *Routine Extremities Exam Present: edema, normal capillary refill. Absent: cyanosis, clubbing - *Routine Skin Exam Present: warm, wounds, cracked. Absent: rash Comments: redness to lower ext, bandaid to rt pinky toe, jose feet dry and bottoms cracked open. - *Routine Neurological Exam Lethargic, minimal response with sternal rubs - Routine Psychiatric Exam Present: normal affect Assessment and Plan (1) CAP (community acquired pneumonia) Current visit: Yes Status: Acute Category: Medical Code(s): J18.9 - Pneumonia, unspecified organism (2) Obesity Current visit: Yes Status: Acute Qualifiers: Obesity type: due to excess calories Obesity classification: adult class 3 (BMI >= 40) Serious obesity comorbidity presence: with serious comorbidity Body mass index: BMI 70 or greater Qualified Code(s): E66.01 - Morbid (severe) obesity due to excess calories; Z68.45 - Body mass index (BMI) 70 or greater, adult Category: Medical Code(s): E66.9 - Obesity, unspecified (3) Hyperglycemia due to type 2 diabetes mellitus Current visit: No Status: Acute Category: Medical Code(s): E11.65 - Type 2 diabetes mellitus with hyperglycemia (4) Tobacco use Current visit: Yes Status: Acute Category: Social Hx Code(s): Z72.0 - Tobacco use (5) Severe sepsis with acute organ dysfunction Current visit: Yes Status: Acute Category: Medical Code(s): A41.9 - Sepsis, unspecified organism; R65.20 - Severe sepsis without septic shock (6) Atrial fibrillation with rapid ventricular response Current visit: Yes Status: Acute Category: Medical Code(s): I48.91
[2019-11-16 08:36] LABS: ABG Base Excess 11.7 mmol/L (-2.4-2.3); ABG HCO3 37.3 mmhg (22.0-26.0); ABG Oxygen Saturation 95 % (90-100); ABG PH 7.35 mmol/L (7.35-7.45); ABG PO2 85.1 mmhg (80-100); ABG TCO2 39.5 mmhg (23-27)
[2019-11-16 08:38] LABS: Allen's Test ACCEPTABLE; Oxygen 45 %; Source Right Radial
[2019-11-16 08:41] LABS: ABG PCO2 69.2 mmhg (35.0-45.0)
[2019-11-16 08:44] LABS: Creatine Kinase 68 U/L (55-170)
[2019-11-16 08:52] LABS: Adenovirus,PCR Not Detected (NotDetected); Bordetella Pertussis Not Detected (NotDetected); Chlamydophila Pneumoniae, PCR Not Detected (NotDetected); Coronavirus 19, PCR Not Detected (NotDetected); Coronavirus 229E Not Detected (NotDetected); Coronavirus NL63 Not Detected (NotDetected); Coronavirus OC43 Not Detected (NotDetected); Coronovirus HKU1,PCR Not Detected (NotDetected); Human Metapneumovirus Not Detected (NotDetected); Influenza A, PCR Not Detected (NotDetected); Influenza AH1, 2009 Not Detected (NotDetected); Influenza AH1, PCR Not Detected (NotDetected); Influenza AH3,PCR Not Detected (NotDetected); Influenza B, PCR Not Detected (NotDetected); Mycoplasma Pneumoniae, PCR Not Detected (NotDected); Parainfluenza 1, PCR Not Detected (NotDetected); Parainfluenza 2, PCR Not Detected (NotDetected); Parainfluenza 3, PCR Not Detected (NotDetected); Parainfluenza 4, PCR Not Detected (NotDetected); Respiratory Syncytial Virus Not Detected (NotDetected); Rhinovirus/Enterovirus Not Detected (NotDetected)
[2019-11-16 08:57] LABS: CKMB Relative Index 3.5 U/L (0-4.0); Creatine Kinase MB 2.4 ng/ml (0.0-2.03)
[2019-11-16 08:58] LABS: Troponin I < 0.01 ng/ml (0.00-0.034)
--- NOTE | 2019-11-16 10:49 | PC.NURSE ---
1048: [facility] department and Shun Babin notified patient had a negative COVID swab.
--- NOTE | 2019-11-16 11:45 | HMH.PNCARD ---
Subjective Date: 11/16/19 Time: 11:45 Principal diagnosis: pneumonia, afib with RVR Interval history: This is a 44-year-old gentleman who was admitted for pneumonia. He has been being treated for pneumonia for the past 2 weeks and has had increasing shortness of breath over that time. He also reports a discomfort between his shoulder blades but does not seem to be as worried about the pain between his shoulder blades. This morning the patient is very lethargic. I cannot get him to answer any of my questions this morning. He just seems to want to sleep. He appears to be in no acute distress. His vital signs remained stable. The patient was in atrial fibrillation with RVR yesterday. He has since converted to sinus rhythm. He did have one 4 beat run of V. tach. The patient was asymptomatic. His blood pressure remains well controlled. Exam Vital signs and Labs for Last 24 Hours: Temp Pulse Resp BP Pulse Ox 97.2 F L 69 19 160/95 H 99 11/16/19 09:04 11/16/19 10:50 11/16/19 08:00 11/16/19 08:00 11/16/19 08:00 Laboratory Results - last 24 hr 11/15/19 12:13: POC Glucose 404 H* 11/15/19 16:55: POC Glucose 426 H* 11/15/19 20:16: POC Glucose 362 H* 11/16/19 02:50: POC Glucose 366 H* 11/16/19 06:04: POC Glucose 333 H* 11/16/19 06:05: Sodium 130 L, Potassium 3.8, Chloride 82 L, Carbon Dioxide 38 H, Anion Gap 13.8, BUN 15 D, Creatinine 0.70 D, Estimated Creat Clear 151, Estimated GFR 124, Est GFR ( Amer) 150 D, Glucose 343 H, Calcium 9.1 11/16/19 06:05: WBC 8.6, RBC 4.43 L, Hgb 12.9 L, Hct 40.9 L, MCV 92.4, MCH 29.1, MCHC 31.5 L, RDW 15.9, Plt Count 191, MPV 7.9, Neut % (Auto) 75.4, Lymph % (Auto) 11.8, [place] % (Auto) 9.3, Eos % (Auto) 0.8, Baso % (Auto) 2.7 H, Neut # (Auto) 6.5, Lymph # (Auto) 1.0, [place] # (Auto) 0.8, Eos # (Auto) 0.1, Baso # (Auto) 0.2 11/16/19 06:05: Total Creatine Kinase 68, CK-MB (CK-2) 2.4 H, CK-MB (CK-2) Rel Index 3.5, Troponin I < 0.01 11/16/19 08:17: Specimen Source Right radial, O2 % 45, ABG pH 7.35, ABG pCO2 69.2 H, ABG pO2 85.1, ABG HCO3 37.3 H, ABG Total CO2 39.5 H, ABG O2 Saturation 95, ABG Base Excess 11.7 H, Veto Test Acceptable 11/16/19 08:45: Chlamy pneumoniae PCR Not detected, Adenovirus (PCR) Not detected, B. pertussis DNA (PCR) Not detected, Coronavirus OC43 (PCR) Not detected, Coronavirus HKU1 (PCR) Not detected, Coronavirus 229E (PCR) Not detected, COVID-19 PCR Not detected, Coronavirus NL63 (PCR) Not detected, Human Metapneumovir PCR Not detected, Influenza A (H1) PCR Not detected, Influ A (H1N1/09) PCR Not detected, Influenza A (H3) PCR Not detected, Influenza Type A (PCR) Not detected, Influenza Type B (PCR) Not detected, M. pneumoniae (PCR) Not detected, Parainfluenza 1 (PCR) Not detected, Parainfluenza 2 (PCR) Not detected, Parainfluenza 3 (PCR) Not detected, Parainfluenza 4 (PCR) Not detected, RSV (PCR) Not detected, Entero/Rhino (PCR) Not detected I & O for Last 24 hours: Intake & Output 11/13/19 11/14/19 11/15/19 11/16/19 23:59 23:59 23:59 23:59 Intake Total 480 / 480 1397 / 1397 0 / 0 Output Total 2825 / 2825 Balance 480 / 480 -1428 / -1428 0 / 0 Weight 544 lb 8 oz 534 lb 6 oz Microbiology Reports for the Last 24 Hours: Microbiology 11/14/19 11:10 Blood Blood Culture - Preliminary 11/14/19 11:10 Blood Blood Culture - Preliminary Gram Positive Cocci Gram Negative Rods Narrative: Telemetry strip shows sinus rhythm with a rate of 66. Echo showed: 1. Technically very difficult study because of the patient factors and poor acoustic windows, despite Definity contrast endocardial surfaces are very poorly visualized. 2. Mildly enlarged left atrium, normal left ventricular size, mild concentric left ventricular hypertrophy, visually estimated ejection fraction 55%. Diastolic parameters are inconclusive. 3. Mildly enlarged right ventricle with normal contractility 4. Mild mitral and tricusp
[2019-11-16 12:35] LABS: Troponin I < 0.01 ng/ml (0.00-0.034)
[2019-11-16 16:33] LABS: POC Glucose,Bedside 313 (70-110)
[2019-11-16 16:33] LABS: POC Glucose,Bedside 243 (70-110)
--- NOTE | 2019-11-16 18:33 | PC.NURSE ---
THIS AM PATIENT WAS HAVING DIFFICULTY AROUSING AND REQUIRED BIPAP TO KEEP O2 SAT ABOVE 90. HE HAS SEVERE SLEEP APNEA AND HAS NOT WORN HIS HOME CPAP IN 6 YEARS. AROUND 1300 PATIENT CAME OFF BIPAP AND WAS ABLE TO WALK TO THE BATHROOM. HE WAS VERY LETHARGIC AND SLEEPY. WHILE GETTING BACK TO BED I ASKED ABOUT A HISTORY OF ETOH USE VEENA HAD MENTIONED. PATIENT STATES HE DRINKS 1/2 GALLON OF VODKA DAILY. I PERFORMED A CIWA AND HE SCORED 14. REPORTED THIS FINDING TO VEENA WHO STATED SHE WOULD SPEAK WITH DR IBANEZ. SEE NEW ORDERS FOR ETOH WD PROTOCOL. PATIENT IS CURRENTLY ON Q4 CIWA AND NEXT ONE IS DUE AT 1999. SINCE STARTING ETOH WD PROTOCOL PATIENT HAS BECOME LESS AGITATED AND ANXIOUS. HE STATES THAT HE FEELS MUCH BETTER ASIDE FROM A HEADACHE. AT THIS TIME I HAVE PAGED DR IBANEZ TO SEE IF PATIENT CAN HAVE SOME IBUPROPHEN. SEE MAR. CALL LIGHT WITHIN REACH WILL CONTINUE TO MONITOR.
--- NOTE | 2019-11-16 19:22 | PC.NURSE ---
report given to laury
[2019-11-16 20:17] LABS: POC Glucose,Bedside 314 (70-110)
--- NOTE | 2019-11-16 22:11 | PC.NURSE ---
bipa on with 30% fio2 sats sustaining 86%, fio2 increased to 35% sats now sustaining 91-94%. will continue to monitor.
[2019-11-17] VITALS (13 sets, daily range): BP systolic 121–166; BP diastolic 80–93; PULSE 66–80; RESP 15–20; TEMP 36.4–36.9; O2SAT 84–99
--- NOTE | 2019-11-17 02:13 | PC.NURSE ---
patient up and ambulated to restroom on r/a upon return o2 sats 67%. oxygen reapplied at 2 l nc. o2 sats quickly returned to low 90s. patient steady on feet, awake and alert. will continue to monitor.
--- NOTE | 2019-11-17 03:33 | PC.NURSE ---
at 0230 patient requested going back on bipap, o2 sats have remained mid to high 90s on 30%. 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 patient has had no jerking or restless movements while asleep at this point this shift. will continue to monitor.
[2019-11-17 05:45] LABS: POC Glucose,Bedside 264 (70-110)
[2019-11-17 05:57] LABS: Basophils # 0.1 K/mm3 (0-0.2); Eosinophils # 0.1 K/mm3 (0.0-0.4); Eosinophils % 1.9 % (0.1-12.0); Hematocrit 42.4 % (42.0-52.0); Hemoglobin 12.8 g/dL (14.1-18.0); Lymphocytes # 0.9 K/mm3 (0.7-4.5); Lymphocytes % 13.9 % (10-50); Mean Corpuscular HGB Conc 30.3 g/dL (31.8-35.4); Mean Corpuscular Hemoglobin 29.2 pg (27.0-31.2); Mean Corpuscular Volume 96.6 fl (80-94); Mean Platelet Volume 7.5 fl (7.4-10.4); Monocytes # 0.6 K/mm3 (0.1-1.0); Neutrophils % 74.3 % (37.0-80.0); Platelet Count 168 K/mm3 (142-424); Red Blood Count 4.39 M/mm3 (4.60-6.20); Red Cell Distribution Width 16.1 % (11.5-17.5); White Blood Count 6.7 K/mm3 (4.8-10.8)
[2019-11-17 05:59] LABS: Chloride 83 mmol/L (98-107)
[2019-11-17 06:00] LABS: Potassium 4.1 mmoL/L (3.5-5.1); Sodium 133 mmol/L (136-145)
[2019-11-17 06:02] LABS: Blood Urea Nitrogen 17 mg/dl (9-20); Creatinine Clearance Estimated 176 mL/min (50-200); Estimated Glomerular Filt Rate 148 ml/min (>60); GFR (African American) 179 ML/MIN (>60)
[2019-11-17 06:03] LABS: Calcium 9.3 mg/dl (8.4-10.2); Glucose 281 mg/dl (74-100)
--- NOTE | 2019-11-17 06:31 | PC.NURSE ---
patient awake with bipap on at 529, case monitor showed sr with sats in the high 90s. while on bipap. patient off of bipap from 529 to 629 on 2l nc. at 629 patient returned to sleep case monitor began showing sb as low as 50 and o2 sats droping to 79%. patient placed back on bipap
[2019-11-17 06:33] LABS: Anion Gap 13.1 mEq/L (5-15); Carbon Dioxide 41 mmol/L (22.0-30.0)
--- NOTE | 2019-11-17 08:04 | HMH.PNCARD ---
Subjective Date: 11/17/19 Time: 08:04 Principal diagnosis: pneumonia, afib with RVR Interval history: 44-year-old white male sitting in bedside chair eating breakfast in no acute distress. Patient is alert and oriented with no complaints of chest pain. Shortness of breath is unchanged as his lower extremity edema is unchanged also. He continues on oxygen at 2 L/min. He does not wear oxygen at home. He is asking about discharge home today. Exam Vital signs and Labs for Last 24 Hours: Temp Pulse Resp BP Pulse Ox 98.5 F 68 15 142/93 H 94 L 11/17/19 04:00 11/17/19 06:00 11/17/19 06:00 11/17/19 06:00 11/17/19 06:00 Laboratory Results - last 24 hr 11/16/19 06:05: Total Creatine Kinase 68, CK-MB (CK-2) 2.4 H, CK-MB (CK-2) Rel Index 3.5, Troponin I < 0.01 11/16/19 08:17: Specimen Source Right radial, O2 % 45, ABG pH 7.35, ABG pCO2 69.2 H, ABG pO2 85.1, ABG HCO3 37.3 H, ABG Total CO2 39.5 H, ABG O2 Saturation 95, ABG Base Excess 11.7 H, Veto Test Acceptable 11/16/19 08:45: Chlamy pneumoniae PCR Not detected, Adenovirus (PCR) Not detected, B. pertussis DNA (PCR) Not detected, Coronavirus OC43 (PCR) Not detected, Coronavirus HKU1 (PCR) Not detected, Coronavirus 229E (PCR) Not detected, COVID-19 PCR Not detected, Coronavirus NL63 (PCR) Not detected, Human Metapneumovir PCR Not detected, Influenza A (H1) PCR Not detected, Influ A (H1N1/09) PCR Not detected, Influenza A (H3) PCR Not detected, Influenza Type A (PCR) Not detected, Influenza Type B (PCR) Not detected, M. pneumoniae (PCR) Not detected, Parainfluenza 1 (PCR) Not detected, Parainfluenza 2 (PCR) Not detected, Parainfluenza 3 (PCR) Not detected, Parainfluenza 4 (PCR) Not detected, RSV (PCR) Not detected, Entero/Rhino (PCR) Not detected 11/16/19 11:42: POC Glucose 313 H* 11/16/19 12:09: Troponin I < 0.01 11/16/19 16:23: POC Glucose 243 H 11/16/19 20:09: POC Glucose 314 H* 11/17/19 05:27: WBC 6.7, RBC 4.39 L, Hgb 12.8 L, Hct 42.4, MCV 96.6 H, MCH 29.2, MCHC 30.3 L, RDW 16.1, Plt Count 168, MPV 7.5, Neut % (Auto) 74.3, Lymph % (Auto) 13.9, [place] % (Auto) 9.0, Eos % (Auto) 1.9, Baso % (Auto) 1.0, Neut # (Auto) 5.0, Lymph # (Auto) 0.9, [place] # (Auto) 0.6, Eos # (Auto) 0.1, Baso # (Auto) 0.1 11/17/19 05:27: Sodium 133 L, Potassium 4.1, Chloride 83 L, Carbon Dioxide 41 H*, Anion Gap 13.1, BUN 17, Creatinine 0.60 L, Estimated Creat Clear 176, Estimated GFR 148, Est GFR ( Amer) 179, Glucose 281 H, Calcium 9.3 11/17/19 05:38: POC Glucose 264 H I & O for Last 24 hours: Intake & Output 11/14/19 11/15/19 11/16/19 11/17/19 11:59 11:59 11:59 11:59 Intake Total 860 / 860 1017 / 1017 780 / 780 Output Total 1825 / 1825 1800 / 1800 650 / 650 Balance -965 / -965 -783 / -783 130 / 130 Weight 500 lb 544 lb 8 oz 534 lb 6 oz 555 lb 9.038 oz Microbiology Reports for the Last 24 Hours: Microbiology 11/14/19 11:10 Blood Blood Culture - Preliminary 11/14/19 11:10 Blood Blood Culture - Preliminary Gram Positive Cocci Gram Negative Rods - *Routine HEENT Exam Head: Present: normocephalic Eye: Present: EOMI, PERRL ENT: Present: mucous membranes moist - *Routine Respiratory Exam Present: CTA bilaterally, diminished air movement. Absent: accessory muscle use, rales, rhonchi, wheezes - *Routine Cardiovascular Exam Present: RRR. Absent: murmur, gallop, rubs - *Routine Extremities Exam Present: edema. Absent: calf tenderness - *Routine Neurological Exam Present: alert, oriented X3, moving all extremities Progress Note: A&P (1) CAP (community acquired pneumonia) Status: Acute Current Visit: Yes (2) Obesity Status: Acute Current Visit: Yes (3) Hyperglycemia due to type 2 diabetes mellitus Status: Acute Current Visit: No (4) Tobacco use Status: Acute Current Visit: Yes (5) Severe sepsis with acute organ dysfunction Status: Acute Current Visit: Yes (6) Atrial fibrillation with
--- NOTE | 2019-11-17 08:06 | HMH.ACPN ---
Internal Medicine - PN: Subj *Date: 11/17/19 *Time: 08:06 Exam Vital signs and Labs for Last 24 Hours: Temp Pulse Resp BP Pulse Ox 98.5 F 68 15 142/93 H 94 L 11/17/19 04:00 11/17/19 06:00 11/17/19 06:00 11/17/19 06:00 11/17/19 06:00 Laboratory Results - last 24 hr 11/16/19 06:05: Total Creatine Kinase 68, CK-MB (CK-2) 2.4 H, CK-MB (CK-2) Rel Index 3.5, Troponin I < 0.01 11/16/19 08:17: Specimen Source Right radial, O2 % 45, ABG pH 7.35, ABG pCO2 69.2 H, ABG pO2 85.1, ABG HCO3 37.3 H, ABG Total CO2 39.5 H, ABG O2 Saturation 95, ABG Base Excess 11.7 H, Veto Test Acceptable 11/16/19 08:45: Chlamy pneumoniae PCR Not detected, Adenovirus (PCR) Not detected, B. pertussis DNA (PCR) Not detected, Coronavirus OC43 (PCR) Not detected, Coronavirus HKU1 (PCR) Not detected, Coronavirus 229E (PCR) Not detected, COVID-19 PCR Not detected, Coronavirus NL63 (PCR) Not detected, Human Metapneumovir PCR Not detected, Influenza A (H1) PCR Not detected, Influ A (H1N1/09) PCR Not detected, Influenza A (H3) PCR Not detected, Influenza Type A (PCR) Not detected, Influenza Type B (PCR) Not detected, M. pneumoniae (PCR) Not detected, Parainfluenza 1 (PCR) Not detected, Parainfluenza 2 (PCR) Not detected, Parainfluenza 3 (PCR) Not detected, Parainfluenza 4 (PCR) Not detected, RSV (PCR) Not detected, Entero/Rhino (PCR) Not detected 11/16/19 11:42: POC Glucose 313 H* 11/16/19 12:09: Troponin I < 0.01 11/16/19 16:23: POC Glucose 243 H 11/16/19 20:09: POC Glucose 314 H* 11/17/19 05:27: WBC 6.7, RBC 4.39 L, Hgb 12.8 L, Hct 42.4, MCV 96.6 H, MCH 29.2, MCHC 30.3 L, RDW 16.1, Plt Count 168, MPV 7.5, Neut % (Auto) 74.3, Lymph % (Auto) 13.9, [place] % (Auto) 9.0, Eos % (Auto) 1.9, Baso % (Auto) 1.0, Neut # (Auto) 5.0, Lymph # (Auto) 0.9, [place] # (Auto) 0.6, Eos # (Auto) 0.1, Baso # (Auto) 0.1 11/17/19 05:27: Sodium 133 L, Potassium 4.1, Chloride 83 L, Carbon Dioxide 41 H*, Anion Gap 13.1, BUN 17, Creatinine 0.60 L, Estimated Creat Clear 176, Estimated GFR 148, Est GFR ( Amer) 179, Glucose 281 H, Calcium 9.3 11/17/19 05:38: POC Glucose 264 H I & O for Last 24 hours: Intake & Output 11/14/19 11/15/19 11/16/19 11/17/19 23:59 23:59 23:59 23:59 Intake Total 480 / 480 1397 / 1397 780 / 780 Output Total 2825 / 2825 1450 / 1450 Balance 480 / 480 -1428 / -1428 -670 / -670 Weight 246.981 kg 242.388 kg 252 kg Microbiology Reports for the Last 24 Hours: Microbiology 11/14/19 11:10 Blood Blood Culture - Preliminary 11/14/19 11:10 Blood Blood Culture - Preliminary Gram Positive Cocci Gram Negative Rods Assessment and Plan (1) CAP (community acquired pneumonia) Current visit: Yes Status: Acute Category: Medical Code(s): J18.9 - Pneumonia, unspecified organism (2) Obesity Current visit: Yes Status: Acute Qualifiers: Qualified Code(s): E66.01 - Morbid (severe) obesity due to excess calories; Z68.45 - Body mass index (BMI) 70 or greater, adult Category: Medical Code(s): E66.9 - Obesity, unspecified (3) Hyperglycemia due to type 2 diabetes mellitus Current visit: No Status: Acute Category: Medical Code(s): E11.65 - Type 2 diabetes mellitus with hyperglycemia (4) Tobacco use Current visit: Yes Status: Acute Category: Social Hx Code(s): Z72.0 - Tobacco use (5) Severe sepsis with acute organ dysfunction Current visit: Yes Status: Acute Category: Medical Code(s): A41.9 - Sepsis, unspecified organism; R65.20 - Severe sepsis without septic shock (6) Atrial fibrillation with rapid ventricular response Current visit: Yes Status: Acute Category: Medical Code(s): I48.91 - Unspecified atrial fibrillation (7) Edema of both lower extremities Current visit: No Status: Acute Category: Medical Code(s): R60.0 - Localized edema (8) Ventricular tachycardia Current visit: Yes Status: Acute Category: Medical Code(s): I47.2 - Ve
--- NOTE | 2019-11-17 08:29 | HMH.DCSUM ---
General - General Admission date:: 11/14/19 Discharge date: 11/17/19 HPI HPI: 44-year-old male patient sitting up in chair, resting quietly awakens easily. Satting 93 to 94% on 2 L per nasal cannula, on room air sats were 87-88. He reports he feels better today, discussed discharge home he is agreeable to this. He does report he is drinking up to 1/2 gallon of vodka per day, discussed seeing behavioral health and receiving Vivitrol injections, smoking cessation discussed. this pt has been treated as op x2 and has persistent sx- cough and sob - has tob use and diabetes -pt was seen in the ed - -year-old male presents with shortness of breath and fatigue. He states that he was recently diagnosed with pneumonia 2 weeks ago and he states he is really emptying well he is improved but he still feels short of breath especially with physical exertion. He denies any subjective or objective fevers he says he has a slight nonproductive cough. And he does get short of breath and he also states that his legs are swelling he also stated he felt some chest tightness which was in the substernal area and rated that's tightness pain as 3 out of 10. It is exacerbated by movement and alleviated by rest patient denies any cardiac history. Patient also states he has had a stress test done before. Patient does have diabetes mellitus type 2 hyperlipidemia and hypertension. Patient denies any recent sore throat or headache. Patient also denies any arthralgias or myalgias pt with severe sepsis with organ dysfunction and was admitted with ivf and abx - Hospital Course Hospital Course: this pt has been treated as op x2 and has persistent sx- cough and sob - has tob use and diabetes -pt was seen in the ed - -year-old male presents with shortness of breath and fatigue. He states that he was recently diagnosed with pneumonia 2 weeks ago and he states he is really emptying well he is improved but he still feels short of breath especially with physical exertion. He denies any subjective or objective fevers he says he has a slight nonproductive cough. And he does get short of breath and he also states that his legs are swelling he also stated he felt some chest tightness which was in the substernal area and rated that's tightness pain as 3 out of 10. It is exacerbated by movement and alleviated by rest patient denies any cardiac history. Patient also states he has had a stress test done before. Patient does have diabetes mellitus type 2 hyperlipidemia and hypertension. Patient denies any recent sore throat or headache. Patient also denies any arthralgias or myalgias pt with severe sepsis with organ dysfunction and was admitted with ivf and abx - 11/15/19 2-D ECHO: Conclusion 1. Technically very difficult study because of the patient factors and poor acoustic windows, despite Definity contrast endocardial surfaces are very poorly visualized. 2. Mildly enlarged left atrium, normal left ventricular size, mild concentric left ventricular hypertrophy, visually estimated ejection fraction 55%. Diastolic parameters are inconclusive. 3. Mildly enlarged right ventricle with normal contractility 4. Mild mitral and tricuspid regurgitation. 5. No significant pericardial effusion noted. Electronically signed by : Bentley Prasad 11/16/19 CXR: IMPRESSION: Limited study with cardiomegaly and possible right perihilar infiltrate with right basilar atelectasis. Consider CT for more thorough evaluation Dictated by: Veto Zhang MD Blood cultures x2 show contaminant, awaiting sputum culture results He has received Rocephin and azithromycin IV during his stay, he will be discharged home on Omnicef p.o. During morning rounds of 11/16/2019 patient was very lethargic hard to arouse, we were informed by patient's mother patient consumes up to 1/2 gallon of vodka per day. Serax p.o. was started patient more alert during the night of 11/15 and completely back to baseline
--- NOTE | 2019-11-17 08:47 | PC.NURSE ---
Patient placed on room air to obtain room air saturation, o2 saturation on room air immediately dropped to 84%, placed back on 2lnc
--- NOTE | 2019-11-17 10:21 | SW/DCPLANNER ---
SET UP HOME 02 AND NEBULIZER FOR THIS PATIENT WHOM IS DISCHARGING TO HOME. HE WILL SEE BEBE MCLAUGHLIN PRIOR TO LEAVING REGARDING HIS ETOH ABUSE, PATIENT STATES HE DRINKS 1/2 OF LIQOUR PER DAY PLUS SMOKES. HE IS CURRENTLY WAITING TO HAVE BARIATRIC SLEEVE IN JANUARY... PATIENT HAS A C-PAP AT HOME BUT HASN'T BEEN USING IT, DR IBANEZ HAS STRONGLY ENCOURAGED HIM TO USE IT EVERYTIME HE SLEEPS.. HE IS AN EMPLOYEE OF [employer] BUT IS WORKING TO GET HIS DISABILITY.. D/C HOME LATER TODAY...
[2019-11-17 11:50] LABS: POC Glucose,Bedside 237 (70-110)
--- NOTE | 2019-11-17 12:06 | HMH.PHAINT ---
DISCHARGE COUNSELING COMPLETED
--- NOTE | 2019-11-17 17:25 | HMH.BHCONS ---
*Admission Date: 11/14/19 *Reason for consult:: alcohol abuse *History of present illness: This is a known patient to me. I see him on an outpatient basis in the specialty clinic. -I was consulted for alcohol abuse -he was interviewed at the bedside -he is alone at this time; he was on the phone with his mother; but ended this phone call He states that he has been drinking a lot of vodka recently. That he went to rehab in 2016; and did really good for a long time. Then about 8-10 months ago he fell off the wagon. He states that he has been hiding this for a long time; from his ; his providers; his mom. He states that he didn't mention it when he got here; but figures that when he started to decline his told on him. Reports that he is drinking 1/2 gallon vodka with grape koolaid. He states that he knows he needs help. -no drinks since Thursday -came to the hospital here on Thursday for PNA He is will to start Naltrexone. I did discuss with him Vivitrol; but he does not want to do this related to the 28 day opiate tosin and his back issues. I then called Malcolm BlackKendy and discussed this with him. I will send over the Naltrexone for him. Malcolm is continuing the Serax prescriptions for the next 10 days; if he has any issues after this time; he is to call me in the specialty clinic. I did give these instructions to his nurse on the floor; as well as his next appointment with me; it is scheduled for December 14. [facility] History Medical History: Reports:: Anxiety, Depression, Diabetes Mellitus Type 2, Gall Bladder Disease, Gastroesophageal Reflux Disease(GERD), Hyperlipidemia, Hypertension Denies:: Cancer, Diabetes Mellitus Type 1, MRSA, Seizures *Have you ever received a pneumonia vaccine?: No *Have you received a flu vaccine this season?: No Other Medical History: Reports: Other. Denies: Blood Transfusion Reaction Other Surgeries: Yes: Cholecystectomy, Colonoscopy Amputation: No Fractures: Yes - *Social History Educational Level: Completed High School Smoking Status: Current every day smoker Tobacco Type: cigarettes # Packs/Day (cigarettes): 1 #Yrs smoked (if former smoker): 20 Alcohol Intake: current Alcohol Intake Frequency:: 3 or more drinks per day Substance Use Type: denies use, marijuana *Occupational Status:: employed Housing: house Household Members: spouse, children *Travel in the last 8 weeks: None - Psychiatric History Pschychiatric History:: Reports:: Anxiety, Depression Family Hx:: Hypertension, Substance abuse, Alcoholism Review of Systems - *Neurologic Denies confusion, Denies dizziness Meds Home Medications Medication Instructions Recorded Confirmed Type albuterol sulfate 90 mcg/actuation 1 - 2 puff INHALATION Q4-6H PRN #1 07/21/19 11/14/19 Rx aerosol inhaler inh lisinopril 20 1 tab PO DAILY #90 tab 08/19/19 11/14/19 Rx mg-hydrochlorothiazide 25 mg tablet Furosemide [Furosemide 40MG tAB] 40 mg PO DAILY 10/03/19 11/14/19 History LORazepam [Lorazepam] 1 mg PO BIDP PRN 10/03/19 11/14/19 History insulin human U-100 NPH-regulr 85 unit SQ TID ml 10/24/19 11/14/19 History 70-30 mix 100 unit/mL subcutaneous susp Atorvastatin Calcium [Lipitor 40mg 40 mg PO HS 11/14/19 11/14/19 History Tablet] Metformin HCl [Glucophage] 1,000 mg PO BID 11/14/19 11/14/19 History Metoclopramide HCl [Metoclopramide 10 mg PO QID 11/14/19 11/14/19 History 10mg Tablet] Omeprazole [Omeprazole 40mg 40 mg PO BID 11/14/19 11/14/19 History Capsule] Tramadol HCl [Tramadol 50mg 150 mg PO TID 11/14/19 11/14/19 History Tab] Trazodone HCl 100 mg PO HSP PRN 11/14/19 11/14/19 History Venlafaxine HCl [Effexor Xr] 150 mg PO DAILY 11/14/19 11/14/19 History Albuterol Sulfate [Albuterol 1.25 mg IH Q4-6H PRN 30 Days #30 11/17/19 Rx 0.042% 1.25mg/3mL neb] neb Cefdinir [Omnicef 300mg Capsule] 300 mg PO BID 6 Days #12 cap 11/17/19 Rx Oxazepam [Serax 15mg capsule] 15 mg PO DIRECTED 10 D
== END 2019-11-17 13:27 | disposition home or self-care (01) | DRG 194 ==
LOC: ER 13:38 → 2ND 16:27
PROVIDERS: Nurse Practitioner Family; Physician Assistant; Admitting Provider Emergency Medicine; Emergency Provider Family Medicine; PCP Emergency Medicine; Visit Provider Emergency Medicine
DX: J18.9 Pneumonia, unspecified organism (principal); E66.2 Morbid (severe) obesity with alveolar hypoventilation; Z68.45 Body mass index [BMI] 70 or greater, adult; R65.10 Systemic inflammatory response syndrome (SIRS) of non-infectious origin without acute organ dysfunction; I48.91 Unspecified atrial fibrillation; Z79.4 Long term (current) use of insulin; Z79.51 Long term (current) use of inhaled steroids; Z79.899 Other long term (current) drug therapy; I10 Essential (primary) hypertension; F10.20 Alcohol dependence, uncomplicated; E11.65 Type 2 diabetes mellitus with hyperglycemia
CPT/HCPCS: 36415; 71045; 71046; 80048; 80053; 80076; 81001; 82550; 82553; 82803; 82962; 83605; 83880; 84484; 85007; 85025; 86738; 87040; 87070; 87077; 87186; 87205; 87581; 87633; 87798; 93005; 93306; 94640; 94660; 94760; 94761; 96365; 96367; 96375; 96376; 99285; J0456; J2405; Q9957

== ENCOUNTER → 2019-11-28 11:12 | Outpatient (POV) | payer BC, SELFPAY ==
--- NOTE | 2019-11-28 11:45 | HMH.VVPMSO ---
[facility] Virtual Visit SOAP Consent for virtual visit:: With the recent concerns about the COVID-19, we are trying to minimize exposure to you by shifting to telehealth appointments whenever possible. It restricts me from seeing you in person, but the trade off is protecting you during this pandemic. Can you see and hear me okay, and do you consent to this option? If not, I would be happy to see if we can reschedule your appointment in the future, when feasible. Has patient consented to this virtual visit?: Yes Subjective:: Patient is a pleasant 44-year-old white male who presents today for follow-up. Patient was recently hospitalized for sepsis and pneumonia. Patient is doing slightly better. He is having quite a bit of pain however he has increased swelling in his lower extremities. Patient is currently on O2. He is on Lyrica and tramadol. Patient states that it is beneficial but at this time is hard to determine any benefit due to his current health status. Patient and I had a discussion in regards to the fact that at this point there is nothing we can offer him until he is healthier. He is going to follow-up with his care aid and general practitioner. We will continue his tramadol and Lyrica. We will follow-up with him in 1 month. ROS General: no recent weight change, no fever, no sleep disturbances Respiratory: Currently on oxygen Cardiovascular/Peripheral Vascular: No chest pain, No palpitations, edema, no shortness of breath. Gastrointestinal: no new onset incontinence, normal bowel movements reported Genitourinary: no new onset incontinence Musculoskeletal: Back pain, leg pain Psychiatric: normal mood/ affect, [denies depression], [denies anxiety] Neurological: [denies new onset weakness in extremities], [denies new onset balance issues] Objective:: Physical exam: Constitutional: Healthy appearing, well-developed, alert, in no acute distress Psychiatric: Judgment and insight intact, Alert and oriented x4 Mood and affect: Mood normal, affect appropriate Head and face: Inspection: Normocephalic atraumatic, extraocular movement intact Respiratory: Breathing nonlabored, nondyspneic, O2 in use Cardiovascular: No cyanosis, clubbing Skin: Head and neck: Skin with no lesions or rash observed Gait: Able to walk without assistive device: Able to heel and toe walk Neurologic: Sensation grossly intact per patient Musculoskeletal: Decreased range of motion lumbar spine noted Assessment:: Degenerative disc disease lumbar spine with lumbar radiculopathy Plan:: We will give the patient tramadol 50 mg 1-2 tabs 3 times a day and continue his Lyrica at this time. We will see him back in 1 month reassess his symptoms at that time he has been instructed to call the office if he has any issues prior to his next appointment. This encounter was performed as a telemedicine visit via secure 2 way video and audio to minimize risk and transmission of Covid-19. The patient and we understand the limitations of a telemedicine visit including inability to check reflexes, possibly missing subtle findings on physical exam. Alternative options were presented to the patient and the patient elected to proceed with the visit. We specifically discussed risk factors for Covid-19 including age, heart or lung disease, diabetes, immunosuppression and travel. We also discussed that NSAIDs may worsen Covid-19 infection symptoms and that they should not be used to treat Covid-19 symptoms. Patient was also informed that corticosteroids in any form oral or injectable will decrease immune response and may increase risk of Covid-[address] Diaz has reviewed this patient's chart and this note and agrees with plan of care. Patient has been instructed to call the office if they have any issues prior to the next appointment. Time In:: 11:20 Time Out:: 11:30 [facility] History I have reviewed the patient's past medical history: Yes Medical Histor
== END ==
PROVIDERS: Visit Provider Clinical Nurse Specialist Family Health
DX: M51.16 Intervertebral disc disorders with radiculopathy, lumbar region (principal)
CPT/HCPCS: 99212

== ENCOUNTER → 2019-12-01 15:47 | Outpatient (CLI) | payer BC, SELFPAY ==
--- NOTE | 2019-12-01 15:52 | XR_ITS ---
PROCEDURE: XR CHEST 2V CLINICAL HISTORY: recent pneumonia Cough and congestion COMPARISON: XR CHEST PORTABLE from 11/14/2019 XR CHEST 2V from 11/14/2019 XR CHEST PORTABLE from 11/16/2019 FINDINGS: There are low lung volumes. There is borderline cardiomegaly without failure. There are atelectatic changes in the right lung base which has somewhat improved compared to the previous exam. Upper lobes are clear. IMPRESSION: Persistent but improving right lower lobe atelectasis Dictated by: Veto Zhang MD 12/01/2019 16:03 Electronically signed by Veto Zhang MD in [place] 12/01/2019 16:03
[2019-12-01 18:52] LABS: Chloride 88 mmol/L (98-107); Potassium 4.5 mmoL/L (3.5-5.1); Sodium 135 mmol/L (136-145)
[2019-12-01 18:55] LABS: Anion Gap 15.5 mEq/L (5-15); Blood Urea Nitrogen 19 mg/dl (9-20); Calcium 9.5 mg/dl (8.4-10.2); Carbon Dioxide 36 mmol/L (22.0-30.0); Estimated Glomerular Filt Rate 124 ml/min (>60); GFR (African American) 150 ML/MIN (>60); Glucose 130 mg/dl (74-100)
[2019-12-01 19:03] LABS: NT Pro Brain Natriuretic Pep. 140 pg/mL (0-125)
== END ==
PROVIDERS: PCP Physician Assistant; Visit Provider Physician Assistant
DX: R06.00 Dyspnea, unspecified (principal); I48.0 Paroxysmal atrial fibrillation; I10 Essential (primary) hypertension; R60.0 Localized edema; R60.1 Generalized edema
CPT/HCPCS: 36415; 71046; 80048; 83880

== ENCOUNTER 2019-12-03 08:54 | Inpatient (IN) | payer BC, SELFPAY ==
[2019-12-03] VITALS (25 sets, daily range): BP systolic 79–130; BP diastolic 30–76; PULSE 65–83; RESP 14–22; TEMP 36.6–37.3; O2SAT 86–100; BMI 71.8; BMI 72.0
--- NOTE | 2019-12-03 08:55 | XR_ITS ---
PROCEDURE: XR CHEST PORTABLE Patient Age:44Y CLINICAL HISTORY: previous pnemonia dyspnea hypotension History of heart disease COMPARISON: XR CHEST 2V from 11/14/2019 XR CHEST PORTABLE from 11/16/2019 XR CHEST 2V from 12/01/2019 FINDINGS: Limited AP portable upright chest, with rather lordotic projection. Poor inspiration, low lung volumes with crowded markings bilaterally particularly further accentuated by the rather lordotic projection on this limited AP portable study.. Cardiomegaly of more pronounced than November 30 CXR (similar to 11/16/2019 CXR) Vascular markings are more pronounced particularly towards upper lobes on this stated upright chest findings do suggest vascular congestion. Warrants correlation with BNP. Again the prominent vascular markings as well as heart size be exaggerated by the technique, suboptimal inspiration. Progressive increased density at the right lung base just above right hemidiaphragm. Suspect most likely progressive versus 12/01/2019 CXR but cannot exclude associated infiltrate here. Right hemidiaphragm is now slightly obscured by this process Increase density at this region. Less pronounced atelectasis medial left lung base. cardiac monitor leads are in place. Chest wall unremarkable.. No definitive pleural effusion although the left CP angle is somewhat hazy and ill-defined but IMPRESSION: Limited portable chest with poor inspiration, low lung volumes this crowds markings Cardiomegaly Additional cephalization and vascular congestion today-suggests mild CHF. however this appearance well as cardiomegaly may be exaggerated by the poor inspiration. Correlation with lab and clinical picture required- Basilar airspace disease most pronounced on the at right lung base . Increased density right lung bases since 12/01/2019 CXR. Favor mainly atelectasis but concerned/cannot exclude associated infiltrate developing right lung base with this progressive airspace disease. Dictated by: Luís Ca MD 12/03/2019 10:55 Electronically signed by Luís Ca MD in [place] 12/03/2019 10:55
--- NOTE | 2019-12-03 09:03 | ECG_ITS ---
APPROVED REPORT Exam: Resting ECG HR:73 bpm ECG Measurements Heart Rate 73 AXES [place] 162 P 24 QRSd 120 QRS -34 QT 440 T 18 QTc 484 <Conclusion> Sinus rhythm with premature atrial complexes Left axis deviation,LAHB RBBB Abnormal ECG Electronically signed by : Lui Garcia, 12/06/2019 08:50:19
--- NOTE | 2019-12-03 09:05 | HMH.EDGENADL ---
ED Disposition Clinical Impression: Acute kidney injury, Dehydration Hypotension Qualifiers: Hypotension type: unspecified hypotension type Qualified Code(s): I95.9 - Hypotension, unspecified Disposition: Admitted As Inpatient Condition on Discharge: Serious Referrals: Chintan Aguayo MD [Primary Care Provider] - - Critical Care Critical Care Time: Yes Attestation: On 12/03/19, the high probability of a clinically significant, sudden or life threatening deterioration of the following system(s) required my full and direct attention, intervention and personal management. The time I documented below is in addition to time spent performing reported procedures but includes the following listed in this critical care notation. Total Critical Care Time: 30 Vital system(s) involved:: Circulatory Failure, Renal Failure My critical care processes included: Assessment & monitoring of V/S, Initial and Re-exams, Data Review/Interpretation, Coordinating Care, Medication Orders and management, Documentation Medical Decision Making - Medical Records Medical records reviewed: Yes: I reviewed the patient's medical records. MR Comment: Recent admission discharge summary, most recent cardiology visit from 2 days ago. - Sy Inquiry Pt receiving controlled substance: No Vital Signs: 12/03/19 08:55 12/03/19 09:26 12/03/19 09:41 Temperature 98.1 F Temperature Source Oral Pulse Rate [Left Radial] 76 72 72 Respiratory Rate 22 Blood Pressure [Right Arm] 103/43 L 81/36 L 82/52 L Blood Pressure Mean [Right Arm] 63 51 62 Blood Pressure Position [Right Arm] Sitting Sitting 02 Sat by Pulse Oximetry 86 L Oxygen Delivery Method Nasal Cannula Oxygen Flow Rate (LPM) 2 - Lab Data Lab Results 12/03/19 08:50: WBC 10.7, RBC 4.05 L, Hgb 12.4 L, Hct 38.6 L, MCV 95.3 H, MCH 30.5, MCHC 32.0, RDW 15.7, Plt Count 204, MPV 8.2, Neut % (Auto) 74.7, Lymph % (Auto) 16.7, [place] % (Auto) 4.9, Eos % (Auto) 2.2, Baso % (Auto) 1.4, Neut # (Auto) 8.0 H, Lymph # (Auto) 1.8, [place] # (Auto) 0.5, Eos # (Auto) 0.2, Baso # (Auto) 0.2 12/03/19 08:50: Sodium 135 L, Potassium 4.2, Chloride 89 L, Carbon Dioxide 36 H, Anion Gap 14.2, BUN 34 H D, Creatinine 3.20 H D, Estimated Creat Clear 33, Estimated GFR 21 L, Est GFR ( Amer) 26 L D, Glucose 156 H, Calcium 8.5 D, Total Bilirubin 0.9, AST 40, ALT 27, Alkaline Phosphatase 69, Troponin I < 0.01, Total Protein 7.5, Albumin 3.9, Globulin 3.6 H, Albumin/Globulin Ratio 1.1 12/03/19 08:50: NT-Pro-B Natriuret Pep 351 H Result diagrams: 12/03/19 08:50 12/03/19 08:50 Orders (Tests/Meds): ED MEDICATIONS Generic Name Dose Route Start Last Admin Trade Name Freq PRN Reason Stop Dose Admin Lactated Ringer's 1,000 mls @ 500 mls/hr 12/03/19 10:15 Lactated Ringer's 1000 Ml Bag IV 12/03/19 12:14 .Q2H KATHE Discontinued Medications Generic Name Dose Route Start Last Admin Trade Name Freq PRN Reason Stop Dose Admin Sodium Chloride 1,000 mls @ 999 mls/hr 12/03/19 09:45 12/03/19 09:35 Sod Chlor 0.9% 1000ml Bag IV 12/03/19 10:45 999 mls/hr .Q1H1M KATHE Administration ORDERS Category Date Time Status XR chest portable Stat Exams 12/03/19 08:55 Taken Troponin I Q3H Lab 12/03/19 12:00 Ordered Troponin I Q3H Lab 12/03/19 15:00 Ordered Urinalysis and Microscopic Stat Lab 12/03/19 09:13 Ordered - Radiology Data #1 Image(s): Chest Image Reviewed: Yes I reviewed the patient's radiology image Compared to previous chest x-rays, most recent 2 days ago. Low lung volumes, cardiomegaly. Persistent right lower lobe atelectasis. - ECG Data Tracing #1 EKG interpreted by Chris Garibay MD: Rhythm: sinus Rate: 73 [place]: Left Ectopy: Premature atrial contractions Conduction: Incomplete right bundle branch block ST Segment Changes: none T Wave Changes: none Q Waves: none No evidence of acute ischemia or injury Prior electrocardiagrams reviewed. No change f
--- NOTE | 2019-12-03 09:08 | PC.NURSE ---
Rad at bedside
[2019-12-03 09:11] LABS: Basophils # 0.2 K/mm3 (0-0.2); Basophils % 1.4 % (0.1-2.0); Eosinophils # 0.2 K/mm3 (0.0-0.4); Eosinophils % 2.2 % (0.1-12.0); Hematocrit 38.6 % (42.0-52.0); Hemoglobin 12.4 g/dL (14.1-18.0); Lymphocytes # 1.8 K/mm3 (0.7-4.5); Lymphocytes % 16.7 % (10-50); Mean Corpuscular Hemoglobin 30.5 pg (27.0-31.2); Mean Corpuscular Volume 95.3 fl (80-94); Mean Platelet Volume 8.2 fl (7.4-10.4); Monocytes # 0.5 K/mm3 (0.1-1.0); Monocytes % 4.9 % (1.7-9.3); Neutrophils % 74.7 % (37.0-80.0); Platelet Count 204 K/mm3 (142-424); Red Blood Count 4.05 M/mm3 (4.60-6.20); Red Cell Distribution Width 15.7 % (11.5-17.5); White Blood Count 10.7 K/mm3 (4.8-10.8)
[2019-12-03 09:14] LABS: Chloride 89 mmol/L (98-107); Potassium 4.2 mmoL/L (3.5-5.1); Sodium 135 mmol/L (136-145)
[2019-12-03 09:17] LABS: Alanine Aminotransferase 27 U/L (12-78); Albumin Level 3.9 g/dl (3.5-5.0); Albumin/Globulin Ratio 1.1 (1.1-1.8); Alkaline Phosphatase 69 U/L (38-126); Anion Gap 14.2 mEq/L (5-15); Aspartate Amino Transferase 40 U/L (17-59); Bilirubin,Total 0.9 mg/dl (0.2-1.3); Blood Urea Nitrogen 34 mg/dl (9-20); Carbon Dioxide 36 mmol/L (22.0-30.0); Creatinine Clearance Estimated 33 mL/min (50-200); Estimated Glomerular Filt Rate 21 ml/min (>60); GFR (African American) 26 ML/MIN (>60); Globulin 3.6 g/dL (1.3-3.2); Total Protein,Serum 7.5 g/dl (6.3-8.2)
[2019-12-03 09:18] LABS: Glucose 156 mg/dl (74-100)
[2019-12-03 09:31] LABS: Troponin I < 0.01 ng/ml (0.00-0.034)
[2019-12-03 09:32] LABS: NT Pro Brain Natriuretic Pep. 351 pg/mL (0-125)
--- NOTE | 2019-12-03 09:41 | PC.NURSE ---
Dr Peyton benitez who is covering for Dr Aguayo.
--- NOTE | 2019-12-03 09:42 | PC.NURSE ---
at bedside upon pt's arrival to ed.
[2019-12-03 10:06] LABS: Calcium 8.5 mg/dl (8.4-10.2)
--- NOTE | 2019-12-03 10:26 | PC.NURSE ---
500cc NS infused. iv stopped and changed to LR
--- NOTE | 2019-12-03 10:30 | PC.NURSE ---
pt and updated on plan of care
--- NOTE | 2019-12-03 10:33 | PC.NURSE ---
attempted to call report, no answer. will call back
--- NOTE | 2019-12-03 10:45 | PC.NURSE ---
report called to floor
--- NOTE | 2019-12-03 10:56 | HMH.HP ---
*Admission Date: 12/03/19 *Chief complaint: hypotension *History of present illness: 44 yr old male presented to ed with c/o 2 days history of confusion, tiredness, lightheadedness, fatigue and increased sleepiness, generalized weakness, and twitching of the hands. arrived via ambulance with hypotension and fluids given during transport.Pt states he followed up with his primary care doctor at the beginning of the week. 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 He had his dose of Lasix increased from 40 mg a day to 40 mg a day with an additional 40 mg twice a week. He took his first extra dose of Lasix yesterday. States he only urinated twice yesterday since taking lasix. Pt admitted for acute kidney injury and hydration. pt states he has been using o2 at home but was not able to wear his cpap due to his o2 dropping while having mask on. [facility] History I have reviewed the patient's past medical history: Yes Medical History: Reports:: Anxiety, Depression, Diabetes Mellitus Type 2, Gall Bladder Disease, Gastroesophageal Reflux Disease(GERD), Hyperlipidemia, Hypertension Denies:: Cancer, Diabetes Mellitus Type 1, MRSA, Seizures *Have you ever received a pneumonia vaccine?: Yes *Have you received a flu vaccine this season?: Yes Other Medical History: Reports: Other. Denies: Blood Transfusion Reaction Other Surgeries: Yes: Cholecystectomy, Colonoscopy Amputation: No Fractures: Yes - *Social History Smoking Status: Former smoker Tobacco Type: cigarettes # Packs/Day (cigarettes): 1 #Yrs smoked (if former smoker): 20 Alcohol Intake: former Alcohol Intake Frequency:: 3 or more drinks per day Substance Use Type: denies use, marijuana *Occupational Status:: other Housing: other Household Members: spouse, children *Travel in the last 8 weeks: None - Psychiatric History Pschychiatric History:: Reports:: Anxiety, Depression Family Hx:: Hypertension, Substance abuse, Alcoholism Review of Systems - Review of Systems Review of systems:: pertinent systems reviewed and negative unless documented below - Constitutional Reports fatigue, Reports malaise, Reports weakness - Eyes Denies blurry vision - ENT Denies post nasal drip, Denies sore throat - *Cardiovascular Denies chest pain at rest, Denies generalized swelling - *Respiratory Denies shortness of breath with activity - *Gastrointestinal Denies nausea, Denies vomiting - *Genitourinary Reports other - *Musculoskeletal Reports muscle weakness, Denies joint pain - Integumentary/Breasts Denies rash - *Neurologic Reports weakness, Denies abnormal hearing - Psychiatric Denies anxiety - Endocrine Denies excessive sweating - Hematologic/Lymphatic Denies easy bruising - Allergic/Immunologic Denies tongue swelling Meds Home Medications Medication Instructions Recorded Confirmed Type albuterol sulfate 90 mcg/actuation 1 - 2 puff INHALATION Q4-6H PRN #1 07/21/19 12/03/19 Rx aerosol inhaler inh Furosemide [Furosemide 40MG tAB] 40 mg PO DAILY 10/03/19 12/03/19 History LORazepam [Lorazepam] 1 mg PO BIDP PRN 10/03/19 12/03/19 History insulin human U-100 NPH-regulr 85 unit SQ TID ml 10/24/19 12/03/19 History 70-30 mix 100 unit/mL subcutaneous susp Atorvastatin Calcium [Lipitor 40mg 40 mg PO HS 11/14/19 12/03/19 History Tablet] Metformin HCl [Glucophage] 1,000 mg PO BID 11/14/19 12/03/19 History Omeprazole [Omeprazole 40mg 40 mg PO BID 11/14/19 12/03/19 History Capsule] Tramadol HCl [Tramadol 50mg 1 - 2 tab PO TIDP PRN 11/14/19 12/03/19 History Tab] Trazodone HCl 100 mg PO HSP PRN 11/14/19 12/03/19 History Venlafaxine HCl [Effexor Xr] 150 mg PO DAILY 11/14/19 12/03/19 History metoclopramide HCl 10 mg tablet 10 mg PO QID #120 tab 11/22/19 12/03/19 Rx rivaroxaban 20 mg tablet 20 mg PO DAILY tab 11/24/19 12/03/19 History lisinopril 20 1 tab PO DAILY tab 12/01/19 12/03/19 History mg-hydrochlorothiazide 25 mg tablet albuterol sulfate 1.25 mg/
--- NOTE | 2019-12-03 11:01 | PC.NURSE ---
Elaina Haley at bedside at this time.
--- NOTE | 2019-12-03 11:20 | PC.NURSE ---
Pt just arrived to the floor, was told during report that patient is to be admitted stepdown
[2019-12-03 11:59] LABS: POC Glucose,Bedside 159 (70-110)
[2019-12-03 12:49] LABS: Troponin I < 0.01 ng/ml (0.00-0.034)
[2019-12-03 15:28] LABS: Troponin I 0.02 ng/ml (0.00-0.034)
[2019-12-03 16:41] LABS: POC Glucose,Bedside 152 (70-110)
--- NOTE | 2019-12-03 18:21 | PC.NURSE ---
Pt has rested in bed t/o the shift. Lungs were clear, O2 sats running in 90's on 2L NC. O2 sats drop to 80's when sleeping. O2 increased to 3L NC while sleeping with sats returning back to the 90's. He had no urine output for approx 24 hrs as of [address] Todd notified and new order received for rios to be anchored. 16 fr placed with approx 400 ml's out. + 2 generalized edema noted. Slight tremors evident at times. Ativan administered per prn order with pt reporting relief. He was treated x1 for a headache and chronic back pain with toradol and tylenol. Sinus arrhythmia on tele. Small skin tear noted to left funk. Will continue to monitor.
[2019-12-03 19:48] LABS: Anion Gap 14.7 mEq/L (5-15); Blood Urea Nitrogen 38 mg/dl (9-20); Calcium 8.5 mg/dl (8.4-10.2); Carbon Dioxide 34 mmol/L (22.0-30.0); Chloride 88 mmol/L (98-107); Creatinine Clearance Estimated 33 mL/min (50-200); Estimated Glomerular Filt Rate 21 ml/min (>60); GFR (African American) 26 ML/MIN (>60); Glucose 181 mg/dl (74-100); Potassium 4.7 mmoL/L (3.5-5.1); Sodium 132 mmol/L (136-145)
[2019-12-03 19:59] LABS: POC Glucose,Bedside 171 (70-110)
[2019-12-04] VITALS (14 sets, daily range): BP systolic 104–162; BP diastolic 56–85; PULSE 64–80; RESP 17–20; TEMP 36.7–37.1; O2SAT 90–100; BMI 73.1
--- NOTE | 2019-12-04 03:19 | PC.NURSE ---
He has been resting in bed. Received PRN pain medication for back pain. He continues on 2LPM n/c. States he is home dependent on 2LPM n/c. Reports last BM was on 12/02/19. 1+ edema to lower abdomen and sides. Trace edema to BLE. Bilateral feet are calloused on the bottom and have dry, flaky skin on top. He has a scabbed area on his right funk. Bilateral shins are shiny. He reports having a good appetite. Noted flailing of arms while sleeping. Sleeping with HOB elevated.
--- NOTE | 2019-12-04 05:15 | PC.NURSE ---
RN NOTIFIED OF 9 POUND WEIGHT GAIN.
[2019-12-04 05:38] LABS: POC Glucose,Bedside 200 (70-110)
[2019-12-04 06:09] LABS: Blood Urea Nitrogen 33 mg/dl (9-20); Calcium 8.6 mg/dl (8.4-10.2); Chloride 89 mmol/L (98-107); Creatinine Clearance Estimated 66 mL/min (50-200); Estimated Glomerular Filt Rate 48 ml/min (>60); GFR (African American) 58 ML/MIN (>60); Potassium 4.5 mmoL/L (3.5-5.1); Sodium 132 mmol/L (136-145)
[2019-12-04 06:18] LABS: Anion Gap 9.5 mEq/L (5-15); Carbon Dioxide 38 mmol/L (22.0-30.0); Glucose 224 mg/dl (74-100)
--- NOTE | 2019-12-04 10:12 | HMH.ACPN2 ---
Internal Medicine - PN: Subj *Date: 12/04/19 *Time: 10:00 Interval history: pt states he rested well last pm. Exam Vital signs and Labs for Last 24 Hours: Temp Pulse Resp BP Pulse Ox 98.1 F 77 17 128/66 97 12/04/19 08:00 12/04/19 08:00 12/04/19 08:00 12/04/19 08:00 12/04/19 08:00 Laboratory Results - last 24 hr 12/03/19 11:39: POC Glucose 159 H 12/03/19 12:15: Troponin I < 0.01 12/03/19 14:52: Troponin I 0.02 12/03/19 14:52: Sodium 132 L, Potassium 4.7, Chloride 88 L, Carbon Dioxide 34 H, Anion Gap 14.7, BUN 38 H, Creatinine 3.20 H, Estimated Creat Clear 33, Estimated GFR 21 L, Est GFR ( Amer) 26 L, Glucose 181 H, Calcium 8.5 12/03/19 16:30: POC Glucose 152 H 12/03/19 19:38: POC Glucose 171 H 12/04/19 05:30: POC Glucose 200 H 12/04/19 05:45: Sodium 132 L, Potassium 4.5, Chloride 89 L, Carbon Dioxide 38 H, Anion Gap 9.5, BUN 33 H, Creatinine 1.60 H D, Estimated Creat Clear 66, Estimated GFR 48 L, Est GFR ( Amer) 58 L D, Glucose 224 H D, Calcium 8.6 I & O for Last 24 hours: Intake & Output 12/01/19 12/02/19 12/03/19 12/04/19 11:59 11:59 11:59 11:59 Intake Total 3168 / 3168 Output Total 3800 / 3800 Balance -632 / -632 Weight 531 lb 5.024 oz 540 lb 5.648 oz - Constitutional no acute distress, morbidly obese - *Routine HEENT Exam Head: Present: normocephalic Eye: Present: EOMI, PERRL ENT: Present: mucous membranes moist - *Routine Neck Exam Present: supple. Absent: lymphadenopathy - *Routine Respiratory Exam Present: CTA bilaterally - *Routine Cardiovascular Exam Present: RRR - *Routine Abdominal Exam Present: soft, normoactive bowel sounds, obese. Absent: tenderness - *Routine Exam Comments: rios draining clear yellow urine at bedside- 800 ml in rios - *Routine Extremities Exam Present: edema. Absent: cyanosis, clubbing Comments: dry cracked skin to feet and lower legs - *Routine Skin Exam Present: dry, warm. Absent: rash - *Routine Neurological Exam Present: alert, oriented X3 - Routine Psychiatric Exam Present: normal affect Assessment and Plan (1) Sleep apnea in adult Current visit: Yes Status: Acute Category: Medical Code(s): G47.30 - Sleep apnea, unspecified (2) History of CHF (congestive heart failure) Current visit: Yes Status: Acute Category: Medical Code(s): Z86.79 - Personal history of other diseases of the circulatory system (3) Acute kidney injury Current visit: Yes Status: Acute Category: Medical Code(s): N17.9 - Acute kidney failure, unspecified (4) Dehydration Current visit: Yes Status: Acute Category: Medical Code(s): E86.0 - Dehydration (5) Hypotension Current visit: Yes Status: Acute Qualifiers: Hypotension type: unspecified hypotension type Qualified Code(s): I95.9 - Hypotension, unspecified Category: Medical Code(s): I95.9 - Hypotension, unspecified (6) Obesity Current visit: No Status: Acute Qualifiers: Obesity type: due to excess calories Obesity classification: adult class 3 (BMI >= 40) Serious obesity comorbidity presence: with serious comorbidity Body mass index: BMI 70 or greater Qualified Code(s): E66.01 - Morbid (severe) obesity due to excess calories; Z68.45 - Body mass index (BMI) 70 or greater, adult Category: Medical Code(s): E66.9 - Obesity, unspecified (7) Tobacco use Current visit: No Status: Acute Category: Social Hx Code(s): Z72.0 - Tobacco use (8) BMI 60.0-69.9, adult Current visit: No Status: Chronic Category: Medical Code(s): Z68.44 - Body mass index (BMI) 60.0-69.9, adult - Assessment and plan all Dx Assessment and Plan for all problems:: discussed pt with dr garcia all orders per dr maria luz mckeon to round later today change iv fluids to ns- recheck bmp at 9 pm possible dc home in am
--- NOTE | 2019-12-04 10:36 | P.CONPHA_ITS ---
[facility] Pharmacy VTE Monitoring - Patient Demographics Admission date: 12/04/19 Report Date: 12/04/19 Time: 10:36 Allergies/Adverse Reactions: Patient Allergies No Known Allergies Allergy (Verified 12/01/19 14:35) Height: 1.83 m Weight: 245.1 kg Patient Problems: Current Active Problems Acute kidney injury (Acute) Dehydration (Acute) Hypotension (Acute) - VTE Risk Labs: VTE Related Lab Results Hgb 12.4 g/dL (14.1-18.0) L 12/03/19 08:50 Hct 38.6 % (42.0-52.0) L 12/03/19 08:50 Plt Count 204 K/mm3 (142-424) 12/03/19 08:50 BUN 33 mg/dl (9-20) H 12/04/19 05:45 Creatinine 1.60 mg/dl (0.66-1.25) H D 12/04/19 05:45 Estimated Creat Clear 66 mL/min (50-200) 12/04/19 05:45 Was VTE Risk Assessment Performed: Yes VTE Score: 7 VTE Risk Level: Moderate Risk - Prophylaxis Types of VTE Prophylaxis: Pharmacological Location of Applied Device: Refused Pharmacologic Type: Other (XARELTO ORDERED)
[2019-12-04 11:29] LABS: POC Glucose,Bedside 206 (70-110)
[2019-12-04 11:41] LABS: Basophils # 0.1 K/mm3 (0-0.2); Basophils % 1.6 % (0.1-2.0); Eosinophils # 0.2 K/mm3 (0.0-0.4); Eosinophils % 2.5 % (0.1-12.0); Hemoglobin 12.2 g/dL (14.1-18.0); Lymphocytes % 14.6 % (10-50); Mean Corpuscular HGB Conc 32.9 g/dL (31.8-35.4); Mean Corpuscular Hemoglobin 30.2 pg (27.0-31.2); Mean Corpuscular Volume 91.8 fl (80-94); Mean Platelet Volume 8.6 fl (7.4-10.4); Monocytes # 0.3 K/mm3 (0.1-1.0); Neutrophils # 5.3 K/mm3 (1.8-7.8); Neutrophils % 76.3 % (37.0-80.0); Platelet Count 170 K/mm3 (142-424); Red Blood Count 4.04 M/mm3 (4.60-6.20); Red Cell Distribution Width 15.5 % (11.5-17.5); White Blood Count 6.9 K/mm3 (4.8-10.8)
[2019-12-04 11:49] LABS: Creatine Kinase 68 U/L (55-170)
[2019-12-04 11:50] LABS: Anion Gap 10.5 mEq/L (5-15); Blood Urea Nitrogen 28 mg/dl (9-20); Calcium 9.1 mg/dl (8.4-10.2); Carbon Dioxide 38 mmol/L (22.0-30.0); Chloride 90 mmol/L (98-107); Creatinine Clearance Estimated 81 mL/min (50-200); Estimated Glomerular Filt Rate 61 ml/min (>60); GFR (African American) 73 ML/MIN (>60); Glucose 235 mg/dl (74-100); Potassium 4.5 mmoL/L (3.5-5.1); Sodium 134 mmol/L (136-145)
[2019-12-04 12:03] LABS: CKMB Relative Index 1.2 U/L (0-4.0); Creatine Kinase MB 0.8 ng/ml (0.0-2.03); Troponin I 0.08 ng/ml (0.00-0.034)
[2019-12-04 16:12] LABS: POC Glucose,Bedside 221 (70-110)
--- NOTE | 2019-12-04 17:44 | PC.NURSE ---
PT IS ALERT AND ORIENTED X4. AT BEDSIDE. UP TO CHAIR FOR MAJORITY OF AFTERNOON AND FOR MEALS. CARMONA CATHETER IS SECURE, PATENT, AND DRAINING CLEAR YELLOW URINE. NO COMPLAINTS VOICED. SAFETY MEASURES IN PLACE, WILL CONTINUE TO MONITOR
[2019-12-04 20:42] LABS: Anion Gap 8.4 mEq/L (5-15); Blood Urea Nitrogen 22 mg/dl (9-20); Calcium 9.3 mg/dl (8.4-10.2); Carbon Dioxide 39 mmol/L (22.0-30.0); Chloride 90 mmol/L (98-107); Creatinine Clearance Estimated 117 mL/min (50-200); Estimated Glomerular Filt Rate 93 ml/min (>60); GFR (African American) 112 ML/MIN (>60); Glucose 244 mg/dl (74-100); Potassium 4.4 mmoL/L (3.5-5.1); Sodium 133 mmol/L (136-145)
[2019-12-04 21:51] LABS: POC Glucose,Bedside 194 (70-110)
[2019-12-05] VITALS: BP 129/70; PULSE 70; PULSE 73; RESP 20; TEMP 36.6; O2SAT 97
--- NOTE | 2019-12-05 00:09 | PC.NURSE ---
Late entry: Dr. Todd is irrigationist designer for Dr. Aguayo; given in report to LOLA De La Torre to notify MD on rounds about 9lb weight gain.
--- NOTE | 2019-12-05 03:54 | PC.NURSE ---
A&OX4. PT TOLERATING RA WELL THIS SHIFT. UP WITH STANDBY ASSIST. PT HAS C/O GENERALIZED AND BACK PAIN X1 THIS SHIFT, TREATED WITH PRN MEDS PER MAR. ON REASSESSMENT, PT SLEEPING IN CHAIR. F/C PRESENT, DRAINING YELLOW URINE. PT RESTING WELL IN CHAIR T/O SHIFT, NO OTHER COMPLAINTS THUS FAR. VSS WILL CONTINUE TO MONITOR.
[2019-12-05 04:00] VITALS: BP 140/84; PULSE 70; PULSE 73; RESP 19; TEMP 36.8; O2SAT 97
[2019-12-05 04:47] LABS: Anion Gap 9.4 mEq/L (5-15); Blood Urea Nitrogen 18 mg/dl (9-20); Calcium 9.1 mg/dl (8.4-10.2); Carbon Dioxide 36 mmol/L (22.0-30.0); Chloride 92 mmol/L (98-107); Creatinine Clearance Estimated 151 mL/min (50-200); Estimated Glomerular Filt Rate 124 ml/min (>60); GFR (African American) 150 ML/MIN (>60); Potassium 4.4 mmoL/L (3.5-5.1); Sodium 133 mmol/L (136-145)
[2019-12-05 04:49] LABS: Glucose 190 mg/dl (74-100)
[2019-12-05 05:00] VITALS: BMI 72.8
[2019-12-05 05:23] LABS: Basophils # 0.1 K/mm3 (0-0.2); Basophils % 1.7 % (0.1-2.0); Eosinophils # 0.2 K/mm3 (0.0-0.4); Eosinophils % 3.3 % (0.1-12.0); Hematocrit 36.9 % (42.0-52.0); Hemoglobin 12.2 g/dL (14.1-18.0); Lymphocytes % 16.9 % (10-50); Mean Corpuscular HGB Conc 33.1 g/dL (31.8-35.4); Mean Corpuscular Hemoglobin 29.9 pg (27.0-31.2); Mean Corpuscular Volume 90.1 fl (80-94); Mean Platelet Volume 9.1 fl (7.4-10.4); Monocytes # 0.3 K/mm3 (0.1-1.0); Monocytes % 5.9 % (1.7-9.3); Neutrophils # 4.1 K/mm3 (1.8-7.8); Neutrophils % 72.2 % (37.0-80.0); Platelet Count 126 K/mm3 (142-424); Red Blood Count 4.09 M/mm3 (4.60-6.20); Red Cell Distribution Width 15.5 % (11.5-17.5); White Blood Count 5.6 K/mm3 (4.8-10.8)
[2019-12-05 05:26] LABS: POC Glucose,Bedside 194 (70-110)
[2019-12-05 08:00] VITALS: BP 128/61; PULSE 68; PULSE 70; RESP 18; TEMP 36.9; O2SAT 98
[2019-12-05 08:40] VITALS: PULSE 68; RESP 18; O2SAT 98
--- NOTE | 2019-12-05 08:55 | HMH.DCSUM ---
General - General Admission date:: 12/03/19 Discharge date: 12/05/19 HPI HPI: 44 yr old male presented to ed with c/o 2 days history of confusion, tiredness, lightheadedness, fatigue and increased sleepiness, generalized weakness, and twitching of the hands. arrived via ambulance with hypotension and fluids given during transport.Pt states he followed up with his primary care doctor at the beginning of the week. Saw his printed forms proofreader 2 days ago. He had his dose of Lasix increased from 40 mg a day to 40 mg a day with an additional 40 mg twice a week. He took his first extra dose of Lasix yesterday. States he only urinated twice yesterday since taking lasix. Pt admitted for acute kidney injury and hydration. pt states he has been using o2 at home but was not able to wear his cpap due to his o2 dropping while having mask on. Hospital Course Hospital Course: pt has slow but steady improvement with ivf - pt has corrected bun/creat and at baseline with resp status - lower ext with chronic changes and tolerating diet and activity Objective Vital signs: Temp Pulse Resp BP Pulse Ox 98.4 F 68 18 128/61 98 12/05/19 08:00 12/05/19 08:40 12/05/19 08:40 12/05/19 08:00 12/05/19 08:40 no acute distress, obese - *Routine HEENT Exam Eye: Present: EOMI, PERRL ENT: Present: mucous membranes dry - *Routine Neck Exam Present: supple - *Routine Respiratory Exam Present: decreased breath sounds - *Routine Cardiovascular Exam Present: RRR, murmur - *Routine Abdominal Exam Present: soft - *Routine Extremities Exam Absent: edema Comments: chronic changes with edema - *Routine Skin Exam Present: erythema Comments: chronic changes lower ext - *Routine Neurological Exam Present: alert, oriented X3, CN II-XII intact - Routine Psychiatric Exam Present: normal affect Results Labs on day of discharge: Labs from last 24 hours 12/05/19 12/05/19 12/05/19 05:08 04:25 04:25 WBC 5.6 RBC 4.09 L Hgb 12.2 L Hct 36.9 L MCV 90.1 MCH 29.9 MCHC 33.1 RDW 15.5 Plt Count 126 L D MPV 9.1 Neut % (Auto) 72.2 Lymph % (Auto) 16.9 [place] % (Auto) 5.9 Eos % (Auto) 3.3 Baso % (Auto) 1.7 Neut # (Auto) 4.1 Lymph # (Auto) 1.0 [place] # (Auto) 0.3 Eos # (Auto) 0.2 Baso # (Auto) 0.1 Sodium 133 L Potassium 4.4 Chloride 92 L Carbon Dioxide 36 H Anion Gap 9.4 BUN 18 Creatinine 0.70 D Estimated Creat Clear 151 Estimated GFR 124 Est GFR ( Amer) 150 D Glucose 190 H D POC Glucose 194 H Calcium 9.1 Total Creatine Kinase CK-MB (CK-2) CK-MB (CK-2) Rel Index Troponin I 12/04/19 12/04/19 12/04/19 21:38 20:20 15:48 WBC RBC Hgb Hct MCV MCH MCHC RDW Plt Count MPV Neut % (Auto) Lymph % (Auto) [place] % (Auto) Eos % (Auto) Baso % (Auto) Neut # (Auto) Lymph # (Auto) [place] # (Auto) Eos # (Auto) Baso # (Auto) Sodium 133 L Potassium 4.4 Chloride 90 L Carbon Dioxide 39 H Anion Gap 8.4 BUN 22 H Creatinine 0.90 D Estimated Creat Clear 117 Estimated GFR 93 Est GFR ( Amer) 112 D Glucose 244 H POC Glucose 194 H 221 H Calcium 9.3 Total Creatine Kinase CK-MB (CK-2) CK-MB (CK-2) Rel Index Troponin I 12/04/19 12/04/19 12/04/19 11:19 11:16 11:16 WBC RBC Hgb Hct MCV MCH MCHC RDW Plt Count MPV Neut % (Auto) Lymph % (Auto) [place] % (Auto) Eos % (Auto) Baso % (Auto) Neut # (Auto) Lymph # (Auto) [place] # (Auto) Eos # (Auto) Baso # (Auto) Sodium 134 L Potassium 4.5 Chloride 90 L Carbon Dioxide 38 H Anion Gap 10.5 BUN 28 H Creatinine 1.30 H Estimated Creat Clear 81 Estimated GFR 61 Est GFR ( Amer) 73 D Glucose 235 H POC Glucose 206 H Calcium
--- NOTE | 2019-12-05 10:56 | HMH.PHAINT ---
DISCHARGE COUNSELING COMPLETED ON PATIENT. NO NEW MEDICATIONS. PATIENT IS TO CONTINUE ALL HOME MEDICATIONS WITH THE EXCEPTION OF LASIX AND SERAX. PATIENT AND SIGNIFICANT OTHER VERBALIZED UNDERSTANDING AND HAD NO QUESTIONS AT THIS TIME. -ADRIANA SHEETS, GILD
== END 2019-12-05 10:25 | disposition home or self-care (01) | DRG 683 ==
LOC: ER 10:12 → 2ND 11:13
PROVIDERS: Nurse Practitioner Family; Admitting Provider Internal Medicine Adolescent Medicine; Emergency Provider Emergency Medicine; PCP Emergency Medicine; Visit Provider Emergency Medicine
DX: N17.9 Acute kidney failure, unspecified (principal); Z68.45 Body mass index [BMI] 70 or greater, adult; E86.0 Dehydration; E11.42 Type 2 diabetes mellitus with diabetic polyneuropathy; Z79.4 Long term (current) use of insulin; I11.0 Hypertensive heart disease with heart failure; I50.9 Heart failure, unspecified; E66.01 Morbid (severe) obesity due to excess calories
CPT/HCPCS: 36415; 71045; 80048; 80053; 82550; 82553; 82962; 83880; 84484; 85025; 93005; 96365; 96367; 99284

== ENCOUNTER → 2019-12-09 17:20 | Outpatient (CLI) | payer BC, SELFPAY ==
[2019-12-09 17:29] LABS: Chloride 95 mmol/L (98-107); Sodium 139 mmol/L (136-145)
[2019-12-09 17:32] LABS: Blood Urea Nitrogen 9 mg/dl (9-20); Calcium 9.4 mg/dl (8.4-10.2); Carbon Dioxide 35 mmol/L (22.0-30.0); Estimated Glomerular Filt Rate 124 ml/min (>60); GFR (African American) 150 ML/MIN (>60); Glucose 124 mg/dl (74-100)
== END ==
PROVIDERS: Visit Provider Physician Assistant
DX: E86.0 Dehydration (principal); N17.9 Acute kidney failure, unspecified
CPT/HCPCS: 80048

== ENCOUNTER → 2019-12-15 15:40 | Outpatient (CLI) | payer BC, SELFPAY ==
[2019-12-15 17:58] LABS: Anion Gap 11.2 mEq/L (5-15); Blood Urea Nitrogen 16 mg/dl (9-20); Carbon Dioxide 38 mmol/L (22.0-30.0); Chloride 87 mmol/L (98-107); Estimated Glomerular Filt Rate 106 ml/min (>60); GFR (African American) 128 ML/MIN (>60); Glucose 234 mg/dl (74-100); Potassium 4.2 mmoL/L (3.5-5.1); Sodium 132 mmol/L (136-145)
== END ==
PROVIDERS: Internal Medicine Cardiovascular Disease; Visit Provider Nurse Practitioner
DX: E11.42 Type 2 diabetes mellitus with diabetic polyneuropathy (principal); E11.65 Type 2 diabetes mellitus with hyperglycemia; I10 Essential (primary) hypertension; R06.02 Shortness of breath; L60.8 Other nail disorders; Z79.4 Long term (current) use of insulin
CPT/HCPCS: 36415; 80048; 87102; 87206; 87220

== ENCOUNTER → 2019-12-28 07:46 | Outpatient (CLI) | payer BC, SELFPAY ==
[2019-12-29 08:19] LABS: Chloride 96 mmol/L (98-107)
[2019-12-29 08:20] LABS: Potassium 4.4 mmoL/L (3.5-5.1); Sodium 137 mmol/L (136-145)
[2019-12-29 08:22] LABS: Blood Urea Nitrogen 16 mg/dl (9-20); Estimated Glomerular Filt Rate 124 ml/min (>60); GFR (African American) 150 ML/MIN (>60)
[2019-12-29 08:23] LABS: Anion Gap 12.4 mEq/L (5-15); Calcium 9.3 mg/dl (8.4-10.2); Carbon Dioxide 33 mmol/L (22.0-30.0); Glucose 229 mg/dl (74-100)
== END ==
PROVIDERS: Visit Provider Internal Medicine Cardiovascular Disease
DX: R06.02 Shortness of breath (principal); E11.42 Type 2 diabetes mellitus with diabetic polyneuropathy; I10 Essential (primary) hypertension; I50.9 Heart failure, unspecified; J44.9 Chronic obstructive pulmonary disease, unspecified
CPT/HCPCS: 80048

== ENCOUNTER → 2020-01-09 13:23 | Outpatient (POV) | payer BC, SELFPAY ==
[2020-01-09 13:39] VITALS: BP 133/85; PULSE 85; RESP 20; TEMP 36.8; O2SAT 97; BMI 70.1
--- NOTE | 2020-01-09 13:57 | HMH.PAINSOAP ---
[facility] Pain Management SOAP Note Subjective:: Patient is a pleasant 44-year-old white male who presents today for follow-up. He is here for medication refills he is currently on Lyrica 150 mg 1 p.o. twice daily tramadol 50 mg 1-2 tabs 3 times a day. He denies side effects however he states it does not help his back pain. He states that significantly helps his neuropathy. [facility] #[id number] reviewed appropriate. Patient had a long discussion regards to his weight causing his back pain. Patient is tried injections in the past with no relief. Patient is currently awaiting gastric bypass however due to his recent stent in the hospital and pneumonia treatment he is awaiting cardiology and pulmonology clearance. Patient currently has a BMI of 70. At this time we are limited in regards to interventions to help with his pain due to his size. ROS General: no recent weight change, no fever, no sleep disturbances Respiratory: no cough, no shortness of air, no recurring pulmonary infections Cardiovascular/Peripheral Vascular: No chest pain, No palpitations, no edema, no shortness of breath. Gastrointestinal: no new onset incontinence, normal bowel movements reported Genitourinary: no new onset incontinence Musculoskeletal: Back pain, leg pain Psychiatric: normal mood/ affect Neurological: [denies new onset weakness in extremities], [denies new onset balance issues] Objective:: Physical Exam General: Alert and oriented x3, no acute distress, pleasant and cooperative, on O2 Lungs: Resps E/U, Symmetrical chest expansion, Eyes: PERRL Musculoskeletal: Flexion and extension of lumbar spine somewhat guarded secondary to pain, deep tendon reflexes normal, strength in upper and lower extremities [5/5], [abnormal gait noted] Neurological: speech clear, freight traffic consultant equal, no gross sensory deficits Assessment:: Degenerative disc disease lumbar spine lumbar radiculopathy Plan:: We will continue his tramadol 50 mg 1-2 tabs q. 3 times daily and his Lyrica 150 mg 1 p.o. twice daily. Patient is pursuing clearance for his cardiac part of his gastric bypass surgery. Patient has been instructed to call the office if he has any issues prior to his next appointment. We will refill his medication see him back in [address] Diaz has reviewed this note and agrees with this plan of care. This note was dictated using voice recognition software and may contain errors or omissions [facility] History I have reviewed the patient's past medical history: Yes Medical History: Reports:: Anxiety, Arrhythmia, Atrial Fibrillation, Congestive Heart Failure, Depression, Diabetes Mellitus Type 2, Gall Bladder Disease, Gastroesophageal Reflux Disease(GERD), Home Oxygen (2 lpm), Hyperlipidemia, Hypertension Denies:: Cancer, Diabetes Mellitus Type 1, MRSA, Seizures *Have you ever received a pneumonia vaccine?: Yes *Have you received a flu vaccine this season?: Yes Other Medical History: Reports: Other. Denies: Blood Transfusion Reaction Other Surgeries: Yes: Cholecystectomy, Colonoscopy, Other Amputation: No Fractures: Yes - *Social History Smoking Status: Former smoker Tobacco Type: cigarettes, smokeless tobacco # Packs/Day (cigarettes): 1 #Yrs smoked (if former smoker): 20 Alcohol Intake: former Alcohol Intake Frequency:: other Substance Use Type: denies use *Occupational Status:: other Housing: house Household Members: spouse, children *Travel in the last 8 weeks: None - Psychiatric History Pschychiatric History:: Reports:: Anxiety, Depression Family Hx:: Hypertension, Substance abuse, Alcoholism
== END ==
PROVIDERS: PCP Emergency Medicine; Visit Provider Clinical Nurse Specialist Family Health
DX: M54.16 Radiculopathy, lumbar region (principal)
CPT/HCPCS: 99212

== ENCOUNTER → 2020-01-24 10:45 | Outpatient (CLI) | payer BC, SELFPAY ==
[2020-01-24 11:15] LABS: Chloride 91 mmol/L (98-107); Potassium 4.4 mmoL/L (3.5-5.1); Sodium 135 mmol/L (136-145)
[2020-01-24 11:18] LABS: Anion Gap 13.4 mEq/L (5-15); Blood Urea Nitrogen 15 mg/dl (9-20); Carbon Dioxide 35 mmol/L (22.0-30.0); Estimated Glomerular Filt Rate 124 ml/min (>60); GFR (African American) 150 ML/MIN (>60)
[2020-01-24 11:19] LABS: Calcium 9.2 mg/dl (8.4-10.2); Glucose 177 mg/dl (74-100)
== END ==
PROVIDERS: Visit Provider Physician Assistant
DX: R06.00 Dyspnea, unspecified (principal); R94.31 Abnormal electrocardiogram [ECG] [EKG]; E11.9 Type 2 diabetes mellitus without complications; I10 Essential (primary) hypertension; Z68.44 Body mass index [BMI] 60.0-69.9, adult; Z79.4 Long term (current) use of insulin
CPT/HCPCS: 80048

== ENCOUNTER → 2020-01-27 12:36 | Outpatient (CLI) | payer BC, SELFPAY ==
--- NOTE | 2020-01-27 12:37 | XR_ITS ---
PROCEDURE: XR FOOT WT BEARING RT 3V CLINICAL INDICATION: pain COMPARISON: Left foot same date FINDINGS: The markedly prominent soft tissues are again noted consistent with the patient's known marked obesity. The tarsal bones metatarsals and phalanges all appear intact. There are prominent spurs of the calcaneus at the insertion of Achilles tendon and plantar tendon. There is no visible arterial calcification. IMPRESSION: Prominent calcaneal spurs Dictated by: Dr. Won Sevilla MD 01/27/2020 13:[address] Won Sevilla MD in [place] 01/27/2020 13:35
--- NOTE | 2020-01-27 12:37 | XR_ITS ---
PROCEDURE: XR FOOT WT BEARING LT 3V CLINICAL INDICATION: pain COMPARISON: XR FOOT WT BEARING RT 3V from 01/27/2020 FINDINGS: No the appearance of the soft tissues suggest that the patient is markedly obese. The tarsal bones and metatarsals and phalanges all appear intact. There are prominent spurs of the calcaneus both at the insertion of the Achilles tendon and plantar tendon. There is no vascular calcification noted. IMPRESSION: Prominent calcaneal spurs as noted Dictated by: Dr. Won Sevilla MD 01/27/2020 13:[address] Won Sevilla MD in [place] 01/27/2020 13:33
== END ==
PROVIDERS: PCP Emergency Medicine; Visit Provider Podiatrist
DX: M79.672 Pain in left foot (principal); M79.671 Pain in right foot; Z51.89 Encounter for other specified aftercare
CPT/HCPCS: 73630

== ENCOUNTER → 2020-01-27 13:45 | Outpatient (CLI) | payer BC, SELFPAY ==
[2020-01-27 14:10] LABS: Basophils % 0.3 % (0.1-2.0); Eosinophils # 0.2 K/mm3 (0.0-0.4); Eosinophils % 2.7 % (0.1-12.0); Hematocrit 37.7 % (42.0-52.0); Hemoglobin 12.8 g/dL (14.1-18.0); Lymphocytes # 1.1 K/mm3 (0.7-4.5); Lymphocytes % 16.1 % (10-50); Mean Corpuscular HGB Conc 33.9 g/dL (31.8-35.4); Mean Corpuscular Hemoglobin 29.3 pg (27.0-31.2); Mean Corpuscular Volume 86.7 fl (80-94); Mean Platelet Volume 8.1 fl (7.4-10.4); Monocytes # 0.5 K/mm3 (0.1-1.0); Monocytes % 7.3 % (1.7-9.3); Neutrophils # 5.2 K/mm3 (1.8-7.8); Neutrophils % 73.6 % (37.0-80.0); Platelet Count 150 K/mm3 (142-424); Red Blood Count 4.35 M/mm3 (4.60-6.20)
[2020-01-27 14:40] LABS: Chloride 91 mmol/L (98-107); Potassium 4.4 mmoL/L (3.5-5.1); Sodium 135 mmol/L (136-145)
[2020-01-27 14:42] LABS: Alanine Aminotransferase 23 U/L (12-78); Aspartate Amino Transferase 27 U/L (17-59); Blood Urea Nitrogen 16 mg/dl (9-20); Estimated Glomerular Filt Rate 148 ml/min (>60); GFR (African American) 179 ML/MIN (>60); Magnesium 1.5 mg/dl (1.6-2.3)
[2020-01-27 14:43] LABS: Albumin Level 4.1 g/dl (3.5-5.0); Albumin/Globulin Ratio 1.2 (1.1-1.8); Alkaline Phosphatase 59 U/L (38-126); Anion Gap 15.4 mEq/L (5-15); Bilirubin,Total 0.8 mg/dl (0.2-1.3); Calcium 9.6 mg/dl (8.4-10.2); Carbon Dioxide 33 mmol/L (22.0-30.0); Globulin 3.5 g/dL (1.3-3.2); Glucose 95 mg/dl (74-100); Total Protein,Serum 7.6 g/dl (6.3-8.2)
[2020-01-27 14:50] LABS: C-Reactive Protein 26.2 mg/L (0-4)
[2020-01-27 14:52] LABS: NT Pro Brain Natriuretic Pep. 58.6 pg/mL (0-125)
[2020-01-27 14:53] LABS: Erythrocyte Sedimentation Rate 35 mm/hr (0-15)
[2020-01-27 18:40] LABS: Hemoglobin A1C 8.2 % (4.0-6.0)
== END ==
PROVIDERS: Podiatrist; Visit Provider Physician Assistant
DX: I89.0 Lymphedema, not elsewhere classified (principal); J44.9 Chronic obstructive pulmonary disease, unspecified; F41.9 Anxiety disorder, unspecified; E66.01 Morbid (severe) obesity due to excess calories; Z68.45 Body mass index [BMI] 70 or greater, adult; Z86.79 Personal history of other diseases of the circulatory system; Z51.89 Encounter for other specified aftercare
CPT/HCPCS: 36415; 80053; 83036; 83735; 83880; 85025; 85651; 86140

== ENCOUNTER → 2020-02-09 13:35 | Outpatient (CLI) | payer BC, SELFPAY ==
[2020-02-09 14:48] LABS: Chloride 91 mmol/L (98-107)
[2020-02-09 14:49] LABS: Potassium 4.4 mmoL/L (3.5-5.1); Sodium 135 mmol/L (136-145)
[2020-02-09 14:51] LABS: Blood Urea Nitrogen 21 mg/dl (9-20); Estimated Glomerular Filt Rate 124 ml/min (>60); GFR (African American) 150 ML/MIN (>60)
[2020-02-09 14:52] LABS: Anion Gap 16.4 mEq/L (5-15); Calcium 9.5 mg/dl (8.4-10.2); Carbon Dioxide 32 mmol/L (22.0-30.0); Glucose 90 mg/dl (74-100)
[2020-02-09 16:58] LABS: Coronavirus 19 IgG Antibody Negative (Negative); Coronavirus 19 IgM Antibody Negative (Negative)
== END ==
PROVIDERS: Physician Assistant; Visit Provider Nurse Practitioner Family
DX: Z03.818 Encounter for observation for suspected exposure to other biological agents ruled out (principal); E66.01 Morbid (severe) obesity due to excess calories; F41.9 Anxiety disorder, unspecified; I89.0 Lymphedema, not elsewhere classified; J44.9 Chronic obstructive pulmonary disease, unspecified; Z68.45 Body mass index [BMI] 70 or greater, adult; Z86.79 Personal history of other diseases of the circulatory system
CPT/HCPCS: 36415; 80048; 86328

== ENCOUNTER → 2020-02-09 20:12 | Outpatient (CLI) | payer BC, SELFPAY | PROVIDERS: PCP Physician Assistant; Visit Provider Specialist | DX: Z01.818 Encounter for other preprocedural examination (principal); G47.33 Obstructive sleep apnea (adult) (pediatric); G47.36 Sleep related hypoventilation in conditions classified elsewhere | CPT/HCPCS: 95811 ==

== ENCOUNTER → 2020-04-09 19:29 | Outpatient (CLI) | payer BC, SELFPAY | PROVIDERS: Visit Provider Podiatrist | DX: E08.621 Diabetes mellitus due to underlying condition with foot ulcer (principal); L97.521 Non-pressure chronic ulcer of other part of left foot limited to breakdown of skin; Z51.89 Encounter for other specified aftercare | CPT/HCPCS: 87070; 87077; 87186; 87205 ==

== ENCOUNTER → 2020-04-11 14:44 | Outpatient (CLI) | payer BC, SELFPAY ==
--- NOTE | 2020-04-11 15:43 | XR_ITS ---
PROCEDURE: XR FOOT WT BEARING LT 3V CLINICAL INDICATION: INJURY 2 MTHS AGO, OPEN WOUND COMPARISON: CR XR FOOT RT MIN 3V from 03/19/2019 CR XR FOOT WT BEARING LT 3V from 05/05/2019 CR XR FOOT WT BEARING RT 3V from 01/27/2020 CR XR FOOT WT BEARING LT 3V from 01/27/2020 FINDINGS: There is a bandage artifact along the medial aspect of the 1st metatarsophalangeal joint. There is some faint calcification in the periarticular region at this area. There is pes planus with osteoarthritic change at the talonavicular and navicular cuneiform joint. Prominent calcaneal spur and Achilles enthesophyte is noted. Other findings:None. IMPRESSION: Faint calcification along the medial aspect of the 1st metatarsophalangeal junction versus artifact from overlying bandage with degenerative change Dictated by: Veto Zhang MD 04/11/2020 16:24 Veto Zhang MD in [facility] 04/11/2020 16:24
[2020-04-11 15:50] LABS: Basophils % 0.5 % (0.1-2.0); Eosinophils # 0.3 K/mm3 (0.0-0.4); Eosinophils % 2.8 % (0.1-12.0); Hematocrit 39.6 % (42.0-52.0); Hemoglobin 13.2 g/dL (14.1-18.0); Lymphocytes # 1.6 K/mm3 (0.7-4.5); Lymphocytes % 18.6 % (10-50); Mean Corpuscular HGB Conc 33.3 g/dL (31.8-35.4); Mean Corpuscular Hemoglobin 28.1 pg (27.0-31.2); Mean Corpuscular Volume 84.3 fl (80-94); Mean Platelet Volume 8.3 fl (7.4-10.4); Monocytes # 0.6 K/mm3 (0.1-1.0); Monocytes % 6.7 % (1.7-9.3); Neutrophils # 6.3 K/mm3 (1.8-7.8); Neutrophils % 71.4 % (37.0-80.0); Platelet Count 141 K/mm3 (142-424); Red Cell Distribution Width 14.4 % (11.5-17.5); White Blood Count 8.8 K/mm3 (4.8-10.8)
[2020-04-11 16:15] LABS: Erythrocyte Sedimentation Rate 32 mm/hr (0-15)
[2020-04-11 19:20] LABS: Chloride 92 mmol/L (98-107)
[2020-04-11 19:21] LABS: Potassium 4.9 mmoL/L (3.5-5.1); Sodium 135 mmol/L (136-145)
[2020-04-11 19:23] LABS: Alanine Aminotransferase 25 U/L (12-78); Albumin Level 4.3 g/dl (3.5-5.0); Albumin/Globulin Ratio 1.3 (1.1-1.8); Alkaline Phosphatase 63 U/L (38-126); Anion Gap 16.9 mEq/L (5-15); Aspartate Amino Transferase 29 U/L (17-59); Bilirubin,Total 0.7 mg/dl (0.2-1.3); Blood Urea Nitrogen 19 mg/dl (9-20); Carbon Dioxide 31 mmol/L (22.0-30.0); Estimated Glomerular Filt Rate 106 ml/min (>60); GFR (African American) 128 ML/MIN (>60); Globulin 3.3 g/dL (1.3-3.2); Total Protein,Serum 7.6 g/dl (6.3-8.2)
[2020-04-11 19:24] LABS: Calcium 9.8 mg/dl (8.4-10.2); Glucose 141 mg/dl (74-100)
[2020-04-15 11:26] LABS: H. pylori Stool Ag, EIA Negative (Negative)
== END ==
PROVIDERS: Surgery; PCP Physician Assistant; Visit Provider Podiatrist
DX: E08.621 Diabetes mellitus due to underlying condition with foot ulcer (principal); L97.521 Non-pressure chronic ulcer of other part of left foot limited to breakdown of skin; Z51.89 Encounter for other specified aftercare; E11.65 Type 2 diabetes mellitus with hyperglycemia; Z79.84 Long term (current) use of oral hypoglycemic drugs
CPT/HCPCS: 36415; 73630; 80053; 83036; 85025; 85651; 86140; 87338

== ENCOUNTER → 2020-05-31 13:48 | Outpatient (POV) | payer BC, SELFPAY ==
--- NOTE | 2020-05-31 14:22 | HMH.PAINSOAP ---
[facility] Pain Management SOAP Note Subjective:: Patient is a 44-year-old morbidly obese male who presents today for follow-up. Patient says he is having worsening low back pain with lumbar radiculopathy symptoms. He has been treated for degenerative disc disease lumbar spine with lumbar radiculopathy. Patient says that he was not getting any relief with the oral medications he was being prescribed in the clinic, and as a result, he did follow-up with his primary care provider Dr. Aguayo and got Waldo. Patient says that this is no longer helping him and he would like to go back to tramadol. Patient says that the most pain he is having is in his bilateral feet which is causing him to feel unsteady. He does have numbness and tingling in his lower extremities. He also has chronic low back pain. He tried lumbar epidural steroid injections in [facility], however, he was paying out of pocket and it was very expensive. As a result, he did come to our clinic. He says that Dr. Mann performed the injections on him as well and he did get some short-term relief. Patient says he got up to a week or 2 of relief at about 80% relief. Unfortunately, his pain has returned. Patient says that he was referred to a neurosurgeon in the past, however, they would not see him because he was unable to obtain an MRI due to his weight. Patient is on chronic home oxygen. He does rate his pain a 6 out of 10 today. Patient was previously managed in our clinic with tramadol 50 mg 1 tablet p.o. 6 times daily and Lyrica 150 mg 1 tablet p.o. 3 times daily. He has since started taking Waldo [address] Aguayo. Review of Systems General: No recent weight changes, no fever, no sleep disturbances Respiratory: No cough, no shortness of air, no recurring pulmonary infections Cardiovascular/peripheral vascular: No chest pain, no palpitations, no edema, no shortness of breath Gastrointestinal: No new onset incontinence, normal bowel movements reported Genitourinary: No new onset incontinence Musculoskeletal: Low back pain with radiation in bilateral lower extremities Psychiatric: Normal mood/affect Neurological: [Denies weakness in extremities], [denies balance issues] Objective:: Physical exam General: Alert and oriented x3, no acute distress, pleasant and cooperative, [on room air] Lungs: Respirations even and unlabored, symmetrical chest expansion Eyes: PERRL Musculoskeletal: Flexion and extension of lumbar spine somewhat guarded secondary to pain, deep tendon reflexes normal, strength in upper and lower extremities [5/5], [abnormal gait noted] Neurological: Speech clear, box order person equal, no gross sensory deficit Assessment:: Degenerative disc disease lumbar spine with lumbar radiculopathy symptoms Plan:: Patient I did discuss undergoing injective therapy. He has met his deductible for the year according to the patient and he would like to proceed with the injections. Patient has postpone any injective therapy prior because he was unable to afford the injections. He and I did discuss that we will not be able to continue to prescribe the medication due to breech in the contract. He says that [facility] is no longer working for him with Dr. Aguayo, however, would not be able to continue the medication along with medications he is getting from other providers. He says he was not aware that he needed to notify us. He is on Xarelto that is prescribed by the cardiology team here at [facility]. We will seek approval for the patient to hold the anticoagulation therapy prior to his injection. We will schedule him for a lumbar epidural steroid injection at L4-L5. Patient I did discuss his weight and need for weight loss. I do think this is a huge contributor to his pain. He does understand that this is likely worsening his pain as well, however, he does have a difficult time losing the weight. He was offered dietary consultation as well as possibl
[2020-05-31 14:23] VITALS: BP 132/85; PULSE 74; RESP 18; O2SAT 98; BMI 74.5
== END ==
PROVIDERS: PCP Physician Assistant; Visit Provider Clinical Nurse Specialist Family Health
DX: M51.16 Intervertebral disc disorders with radiculopathy, lumbar region (principal)
CPT/HCPCS: 99212

== ENCOUNTER → 2020-06-05 14:28 | Outpatient (CLI) | payer BC, SELFPAY ==
--- NOTE | 2020-06-05 15:17 | PC.NURSE ---
PFT Completed without complications. Per PFT protocol Albuterol 0.083% given via hand held nebulizer, Pt tolerated well.
== END ==
PROVIDERS: PCP Emergency Medicine; Visit Provider Internal Medicine Pulmonary Disease
DX: R06.00 Dyspnea, unspecified (principal)
CPT/HCPCS: 94060; 94618; 94726; 94729

== ENCOUNTER 2020-06-11 14:46 | Outpatient (CLI) | payer BC, SELFPAY ==
[2020-06-11 15:07] VITALS: BMI 74.7
[2020-06-11 15:08] VITALS: BMI 74.7
[2020-06-11 15:11] VITALS: BP 130/75; PULSE 88; RESP 18; TEMP 36.4
--- NOTE | 2020-06-11 15:17 | XR_ITS ---
PROCEDURE: XR CHEST PORTABLE CLINICAL HISTORY: possible COVID Shortness of breath and chest pain COMPARISON: CR XR CHEST PORTABLE from 11/16/2019 CR XR CHEST 2V from 12/01/2019 CR XR CHEST PORTABLE from 12/03/2019 FINDINGS: Cardiomegaly. There are low lung volumes. The pulmonary vessels are somewhat prominent but may be related to the poor inspiration. No lobar consolidation or collapse is evident. No effusions. No acute bony anomalies IMPRESSION: Low lung volumes with mild cardiomegaly Dictated by: Veto Zhang MD 06/11/2020 18:07 Veto Zhang MD in [place] 06/11/2020 18:07
--- NOTE | 2020-06-11 15:25 | PC.NURSE ---
1525-laboratory tech at bedside collecting flu swab, covid 19 swab, and strep swab.
[2020-06-11 15:28] LABS: Chloride 94 mmol/L (98-107); Potassium 4.5 mmoL/L (3.5-5.1); Sodium 135 mmol/L (136-145)
[2020-06-11 15:31] LABS: Alanine Aminotransferase 24 U/L (12-78); Albumin Level 4.4 g/dl (3.5-5.0); Albumin/Globulin Ratio 1.1 (1.1-1.8); Alkaline Phosphatase 69 U/L (38-126); Anion Gap 11.5 mEq/L (5-15); Aspartate Amino Transferase 26 U/L (17-59); Basophils # 0.1 K/mm3 (0-0.2); Basophils % 0.7 % (0.1-2.0); Bilirubin,Total 0.9 mg/dl (0.2-1.3); Blood Urea Nitrogen 12 mg/dl (9-20); Carbon Dioxide 34 mmol/L (22.0-30.0); Creatinine Clearance Estimated 181 mL/min (50-200); Eosinophils # 0.2 K/mm3 (0.0-0.4); Eosinophils % 2.3 % (0.1-12.0); Estimated Glomerular Filt Rate 148 ml/min (>60); GFR (African American) 179 ML/MIN (>60); Globulin 3.9 g/dL (1.3-3.2); Hematocrit 42.5 % (42.0-52.0); Hemoglobin 13.5 g/dL (14.1-18.0); Lymphocytes # 1.2 K/mm3 (0.7-4.5); Mean Corpuscular HGB Conc 31.9 g/dL (31.8-35.4); Mean Corpuscular Hemoglobin 28.3 pg (27.0-31.2); Mean Corpuscular Volume 88.8 fl (80-94); Monocytes # 0.4 K/mm3 (0.1-1.0); Monocytes % 5.9 % (1.7-9.3); Neutrophils # 5.1 K/mm3 (1.8-7.8); Neutrophils % 73.2 % (37.0-80.0); Platelet Count 150 K/mm3 (142-424); Red Blood Count 4.78 M/mm3 (4.60-6.20); Red Cell Distribution Width 15.7 % (11.5-17.5); Total Protein,Serum 8.3 g/dl (6.3-8.2); White Blood Count 6.9 K/mm3 (4.8-10.8)
[2020-06-11 15:32] LABS: Calcium 9.5 mg/dl (8.4-10.2); Glucose 209 mg/dl (74-100)
--- NOTE | 2020-06-11 15:35 | PC.NURSE ---
1535radio interference investigator in room with rn to do portable chest xray
[2020-06-11 15:50] LABS: Strep Scrn Group A (Rapid) Negative (Negative)
[2020-06-11 16:15] VITALS: BP 146/93; PULSE 88; RESP 18
[2020-06-13 15:46] LABS: Covid-19 Nasal PCR Sendout Lex Not Detected
== END 2020-06-11 16:15 | disposition home or self-care (01) ==
LOC: RAD 14:48
PROVIDERS: PCP Physician Assistant; Visit Provider Physician Assistant
DX: I95.9 Hypotension, unspecified (principal); R53.83 Other fatigue; Z03.818 Encounter for observation for suspected exposure to other biological agents ruled out
CPT/HCPCS: 71045; 80053; 85025; 87275; 87276; 87430; 96360; U0004

== ENCOUNTER → 2020-06-21 15:15 | Outpatient (CLI) | payer BC, SELFPAY ==
[2020-06-21 16:58] LABS: NT Pro Brain Natriuretic Pep. 43.8 pg/mL (0-125)
== END ==
PROVIDERS: Visit Provider Internal Medicine Cardiovascular Disease
DX: R06.02 Shortness of breath (principal); R60.9 Edema, unspecified; I48.0 Paroxysmal atrial fibrillation; I50.33 Acute on chronic diastolic (congestive) heart failure; I11.0 Hypertensive heart disease with heart failure; Z72.0 Tobacco use
CPT/HCPCS: 36415; 83880

== ENCOUNTER → 2020-07-03 14:24 | Outpatient (CLI) | payer BC, SELFPAY ==
--- NOTE | 2020-07-03 14:37 | XR_ITS ---
PROCEDURE: XR LUMBAR SPINE MIN 4V CLINICAL INDICATION: LBP Low back pain COMPARISON: No exams were available for comparison FINDINGS: No fracture or dislocation. No lytic or blastic change. There is normal mineralization. There are minimal endplate osteophytes. Study is somewhat limited technically due to patient's body habitus. Other findings:None. IMPRESSION: No acute findings. Dictated by: Veto Zhang MD 07/03/2020 15:50 Veto Zhang MD in [place] 07/03/2020 15:50
[2020-07-03 15:02] LABS: Basophils % 0.4 % (0.1-2.0); Eosinophils # 0.2 K/mm3 (0.0-0.4); Eosinophils % 1.6 % (0.1-12.0); Hematocrit 43.4 % (42.0-52.0); Hemoglobin 14.3 g/dL (14.1-18.0); Lymphocytes # 1.4 K/mm3 (0.7-4.5); Lymphocytes % 15.1 % (10-50); Mean Corpuscular HGB Conc 32.8 g/dL (31.8-35.4); Mean Corpuscular Hemoglobin 28.4 pg (27.0-31.2); Mean Corpuscular Volume 86.5 fl (80-94); Mean Platelet Volume 8.3 fl (7.4-10.4); Monocytes # 0.5 K/mm3 (0.1-1.0); Monocytes % 5.7 % (1.7-9.3); Neutrophils # 7.3 K/mm3 (1.8-7.8); Neutrophils % 77.2 % (37.0-80.0); Platelet Count 201 K/mm3 (142-424); Red Blood Count 5.02 M/mm3 (4.60-6.20); White Blood Count 9.5 K/mm3 (4.8-10.8)
[2020-07-03 15:20] LABS: Chloride 90 mmol/L (98-107)
[2020-07-03 15:21] LABS: Sodium 130 mmol/L (136-145)
[2020-07-03 15:23] LABS: Alanine Aminotransferase 25 U/L (12-78); Alkaline Phosphatase 80 U/L (38-126); Aspartate Amino Transferase 24 U/L (17-59); Bilirubin,Total 0.9 mg/dl (0.2-1.3); Blood Urea Nitrogen 16 mg/dl (9-20); Estimated Glomerular Filt Rate 147 ml/min (>60); GFR (African American) 178 ML/MIN (>60)
[2020-07-03 15:24] LABS: Albumin Level 4.5 g/dl (3.5-5.0); Albumin/Globulin Ratio 1.1 (1.1-1.8); Carbon Dioxide 30 mmol/L (22.0-30.0); Chol/HDL Ratio 3.4 (1-3.5); Cholesterol 119 mg/dl (140-200); Glucose 282 mg/dl (74-100); HDL Cholesterol 35 mg/dl (40-60); Total Protein,Serum 8.5 g/dl (6.3-8.2); Triglycerides 117 mg/dl (30-150); VLDL Cholesterol 23 mg/dL (0-40)
[2020-07-03 15:35] LABS: Direct LDL Cholesterol 60.13 mg/dL (100-129)
[2020-07-03 15:55] LABS: Thyroid Stimulating Hormone 0.96 uIU/mL (0.465-4.68)
[2020-07-03 18:12] LABS: Hemoglobin A1C 9.2 % (4.0-6.0)
== END ==
PROVIDERS: Visit Provider Physician Assistant
DX: E11.9 Type 2 diabetes mellitus without complications (principal); M54.5 Low back pain; Z79.4 Long term (current) use of insulin
CPT/HCPCS: 36415; 72110; 80053; 80061; 83036; 84443; 85025

== ENCOUNTER → 2020-09-10 14:42 | Outpatient (CLI) | payer BC, SELFPAY ==
[2020-09-10 20:40] LABS: Amphetamine/Metha Screen,Urine Negative ng/ml (<1000); Barbiturates Screen,Urine Negative ng/ml (<200)
[2020-09-10 20:41] LABS: Benzodiazepines Screen,Urine Negative ng/ml (<200)
[2020-09-10 20:42] LABS: Cannabinoid Screen,Urine Negative ng/ml (<50); Cocaine Screen,Urine Negative ng/ml (<300)
[2020-09-10 20:43] LABS: Methadone Screen,Urine Negative ng/ml (<300); Opiate Screen,Urine Positive ng/ml (<300)
[2020-09-10 20:44] LABS: Phencyclidine Screen,Urine Negative ng/ml (<25)
== END ==
PROVIDERS: Visit Provider Physician Assistant
DX: Z79.899 Other long term (current) drug therapy (principal)
CPT/HCPCS: 80305

== ENCOUNTER → 2020-10-08 11:28 | Outpatient (CLI) | payer BC, SELFPAY ==
[2020-10-08 11:36] LABS: Chloride 92 mmol/L (98-107); Sodium 133 mmol/L (136-145)
[2020-10-08 11:38] LABS: Blood Urea Nitrogen 17 mg/dl (9-20); Estimated Glomerular Filt Rate 147 ml/min (>60); GFR (African American) 178 ML/MIN (>60)
[2020-10-08 11:39] LABS: Calcium 9.8 mg/dl (8.4-10.2); Carbon Dioxide 34 mmol/L (22.0-30.0); Glucose 321 mg/dl (74-100)
[2020-10-08 11:48] LABS: NT Pro Brain Natriuretic Pep. 68.4 pg/mL (0-125)
== END ==
PROVIDERS: Visit Provider Nurse Practitioner Family
DX: E11.42 Type 2 diabetes mellitus with diabetic polyneuropathy (principal); E11.65 Type 2 diabetes mellitus with hyperglycemia; I10 Essential (primary) hypertension; I48.0 Paroxysmal atrial fibrillation; I50.9 Heart failure, unspecified; J44.9 Chronic obstructive pulmonary disease, unspecified; R06.02 Shortness of breath; Z79.84 Long term (current) use of oral hypoglycemic drugs
CPT/HCPCS: 36415; 80048; 83880

== ENCOUNTER → 2020-10-24 17:59 | Outpatient (CLI) | payer BC, SELFPAY ==
--- NOTE | 2020-10-24 18:18 | XR_ITS ---
PROCEDURE: XR FOOT WT BEARING RT 3V CLINICAL INDICATION: DM ulcers Redness and swelling with ulceration COMPARISON: CR XR FOOT WT BEARING LT 3V from 05/05/2019 CR XR FOOT WT BEARING LT 3V from 01/27/2020 CR XR FOOT WT BEARING RT 3V from 01/27/2020 CR XR FOOT WT BEARING LT 3V from 04/11/2020 FINDINGS: No fracture or dislocation. No lytic or blastic change. There is normal mineralization. Bandage artifact overlies the distal phalanx of the great toe. Small area of lucency is present medially at this region and may be related the soft tissue ulceration. No underlying lytic changes. No fracture or dislocation. Calcaneal spur and Achilles enthesophyte noted as before. Other findings:The middle and distal phalanx are fused at the 5th toe with minimal lateral subluxation of the distal phalanx not significantly changed IMPRESSION: Bandage artifact at the great toe with lucency medially which may be related to soft tissue ulceration otherwise negative Dictated by: Veto Zhang MD 10/25/2020 06:12 Veto Zhang MD in [place] 10/25/2020 06:12
--- NOTE | 2020-10-24 18:18 | XR_ITS ---
PROCEDURE: XR FOOT WT BEARING LT 3V CLINICAL INDICATION: DM ulcers COMPARISON: CR XR FOOT WT BEARING LT 3V from 05/05/2019 CR XR FOOT WT BEARING LT 3V from 01/27/2020 CR XR FOOT WT BEARING RT 3V from 01/27/2020 CR XR FOOT WT BEARING LT 3V from 04/11/2020 FINDINGS: No fracture or dislocation. No lytic or blastic change. There is normal mineralization. Pes planus. Mild osteoarthritic change talonavicular joint Other findings:Small calcaneal spur and Achilles enthesophyte IMPRESSION: No acute findings. Dictated by: Veto Zhang MD 10/25/2020 06:13 Veto Zhang MD in [place] 10/25/2020 06:13
[2020-10-24 18:42] LABS: Basophils % 0.3 % (0.1-2.0); Eosinophils # 0.2 K/mm3 (0.0-0.4); Eosinophils % 2.4 % (0.1-12.0); Hematocrit 39.4 % (42.0-52.0); Hemoglobin 12.3 g/dL (14.1-18.0); Lymphocytes # 1.2 K/mm3 (0.7-4.5); Lymphocytes % 16.8 % (10-50); Mean Corpuscular HGB Conc 31.3 g/dL (31.8-35.4); Mean Corpuscular Hemoglobin 28.2 pg (27.0-31.2); Mean Corpuscular Volume 90.1 fl (80-94); Monocytes # 0.4 K/mm3 (0.1-1.0); Monocytes % 5.3 % (1.7-9.3); Neutrophils # 5.2 K/mm3 (1.8-7.8); Neutrophils % 75.2 % (37.0-80.0); Platelet Count 157 K/mm3 (142-424); Red Blood Count 4.37 M/mm3 (4.60-6.20); Red Cell Distribution Width 15.6 % (11.5-17.5); White Blood Count 6.9 K/mm3 (4.8-10.8)
[2020-10-24 19:17] LABS: Alanine Aminotransferase 19 U/L (12-78); Albumin Level 3.9 g/dl (3.5-5.0); Albumin/Globulin Ratio 1.2 (1.1-1.8); Alkaline Phosphatase 77 U/L (38-126); Anion Gap 11.8 mEq/L (5-15); Aspartate Amino Transferase 23 U/L (17-59); Bilirubin,Total 0.6 mg/dl (0.2-1.3); Blood Urea Nitrogen 20 mg/dl (9-20); Calcium 9.3 mg/dl (8.4-10.2); Carbon Dioxide 32 mmol/L (22.0-30.0); Chloride 90 mmol/L (98-107); Estimated Glomerular Filt Rate 123 ml/min (>60); GFR (African American) 149 ML/MIN (>60); Globulin 3.2 g/dL (1.3-3.2); Potassium 4.8 mmoL/L (3.5-5.1); Sodium 129 mmol/L (136-145); Total Protein,Serum 7.1 g/dl (6.3-8.2)
[2020-10-24 19:24] LABS: C-Reactive Protein 18.5 mg/L (0-4)
[2020-10-24 19:26] LABS: NT Pro Brain Natriuretic Pep. 113 pg/mL (0-125)
[2020-10-24 19:28] LABS: Erythrocyte Sedimentation Rate 126 mm/hr (0-15)
[2020-10-24 20:33] LABS: Glucose 477 mg/dl (74-100)
== END ==
PROVIDERS: Podiatrist; Visit Provider Nurse Practitioner Family
DX: R06.00 Dyspnea, unspecified; I48.0 Paroxysmal atrial fibrillation; I50.30 Unspecified diastolic (congestive) heart failure; R60.9 Edema, unspecified; E66.9 Obesity, unspecified; I10 Essential (primary) hypertension; J44.9 Chronic obstructive pulmonary disease, unspecified; E11.621 Type 2 diabetes mellitus with foot ulcer; L97.519 Non-pressure chronic ulcer of other part of right foot with unspecified severity; L97.529 Non-pressure chronic ulcer of other part of left foot with unspecified severity; Z99.81 Dependence on supplemental oxygen
CPT/HCPCS: 36415; 73630; 80053; 83880; 85025; 85651; 86140

== ENCOUNTER → 2020-10-31 18:04 | Outpatient (CLI) | payer BC, SELFPAY ==
[2020-10-31 19:26] LABS: Potassium 4.5 mmoL/L (3.5-5.1); Sodium 133 mmol/L (136-145)
[2020-10-31 19:29] LABS: Blood Urea Nitrogen 19 mg/dl (9-20); Calcium 9.3 mg/dl (8.4-10.2); Carbon Dioxide 31 mmol/L (22.0-30.0); Estimated Glomerular Filt Rate 106 ml/min (>60); GFR (African American) 128 ML/MIN (>60); Glucose 341 mg/dl (74-100)
[2020-10-31 19:38] LABS: NT Pro Brain Natriuretic Pep. 157 pg/mL (0-125)
[2020-10-31 19:47] LABS: Anion Gap 12.5 mEq/L (5-15); Chloride 94 mmol/L (98-107)
== END ==
PROVIDERS: Visit Provider Internal Medicine Cardiovascular Disease
DX: I50.9 Heart failure, unspecified (principal); E11.9 Type 2 diabetes mellitus without complications; Z79.4 Long term (current) use of insulin
CPT/HCPCS: 36415; 80048; 83880

== ENCOUNTER → 2020-11-06 09:35 | Outpatient (CLI) | payer BC, SELFPAY ==
[2020-11-06 10:17] LABS: Basophils % 0.2 % (0.1-2.0); Eosinophils # 0.2 K/mm3 (0.0-0.4); Eosinophils % 2.9 % (0.1-12.0); Hematocrit 39.2 % (42.0-52.0); Hemoglobin 12.3 g/dL (14.1-18.0); Lymphocytes % 16.2 % (10-50); Mean Corpuscular HGB Conc 31.4 g/dL (31.8-35.4); Mean Corpuscular Hemoglobin 28.1 pg (27.0-31.2); Mean Corpuscular Volume 89.5 fl (80-94); Monocytes # 0.3 K/mm3 (0.1-1.0); Monocytes % 4.4 % (1.7-9.3); Neutrophils # 4.5 K/mm3 (1.8-7.8); Neutrophils % 76.3 % (37.0-80.0); Platelet Count 148 K/mm3 (142-424); Red Blood Count 4.38 M/mm3 (4.60-6.20); Red Cell Distribution Width 16.3 % (11.5-17.5); White Blood Count 5.9 K/mm3 (4.8-10.8)
[2020-11-06 10:47] LABS: Chloride 93 mmol/L (98-107); Potassium 4.8 mmoL/L (3.5-5.1); Sodium 133 mmol/L (136-145)
[2020-11-06 10:49] LABS: Alanine Aminotransferase 22 U/L (12-78); Aspartate Amino Transferase 23 U/L (17-59); Blood Urea Nitrogen 17 mg/dl (9-20); Estimated Glomerular Filt Rate 147 ml/min (>60); GFR (African American) 178 ML/MIN (>60)
[2020-11-06 10:50] LABS: Albumin Level 4.1 g/dl (3.5-5.0); Albumin/Globulin Ratio 1.2 (1.1-1.8); Alkaline Phosphatase 78 U/L (38-126); Anion Gap 12.8 mEq/L (5-15); Bilirubin,Total 0.7 mg/dl (0.2-1.3); Calcium 9.4 mg/dl (8.4-10.2); Carbon Dioxide 32 mmol/L (22.0-30.0); Cholesterol 108 mg/dl (140-200); Globulin 3.3 g/dL (1.3-3.2); Glucose 275 mg/dl (74-100); Iron 48 ug/dL (49-181); Phosphorous 2.7 mg/dl (2.5-4.5); Total Protein,Serum 7.4 g/dl (6.3-8.2); Triglycerides 170 mg/dl (30-150); VLDL Cholesterol 34 mg/dL (0-40)
[2020-11-06 10:51] LABS: Chol/HDL Ratio 3.9 (1-3.5); HDL Cholesterol 28 mg/dl (40-60); Magnesium 1.7 mg/dl (1.6-2.3)
[2020-11-06 10:59] LABS: NT Pro Brain Natriuretic Pep. 58.3 pg/mL (0-125)
[2020-11-06 11:01] LABS: Direct LDL Cholesterol 53.37 mg/dL (100-129)
[2020-11-06 11:05] LABS: 25-OH Vitamin D, Total 13.6 ng/mL (30-100)
[2020-11-06 11:22] LABS: Thyroid Stimulating Hormone 1.82 uIU/mL (0.465-4.68)
[2020-11-06 11:26] LABS: Ferritin 24.5 ng/ml (17.9-464)
[2020-11-06 11:56] LABS: Intact Parathyroid Hormone 31.4 pg/mL (7.5-53.5)
[2020-11-06 12:57] LABS: Folate 7.76 ng/mL
[2020-11-06 17:08] LABS: Hemoglobin A1C 11.7 % (4.0-6.0)
[2020-11-07 15:14] LABS: Prealbumin 16 mg/dL (12-34)
[2020-11-09 17:54] LABS: Methylmalonic Acid 254 nmol/L (0-378)
[2020-11-11 18:42] LABS: Vitamin E Alpha Tocopherol 5.8 mg/L (7.0-25.1)
[2020-11-12 23:40] LABS: Vitamin A 28.9 ug/dL (20.1-62.0); Vitamin B1 129.5 nmol/L (66.5-200.0); Vitamin E Gamma Tocopherol 1.3 mg/L (0.5-5.5)
[2020-11-16 00:50] LABS: Cotinine <10.0 ng/mL (.); Nicotine <10.0 ng/mL (.)
== END ==
PROVIDERS: Physician Assistant; Visit Provider Internal Medicine Cardiovascular Disease
DX: R06.00 Dyspnea, unspecified; I50.30 Unspecified diastolic (congestive) heart failure; I48.0 Paroxysmal atrial fibrillation; E11.9 Type 2 diabetes mellitus without complications; E66.9 Obesity, unspecified; I11.0 Hypertensive heart disease with heart failure; J44.9 Chronic obstructive pulmonary disease, unspecified; R60.9 Edema, unspecified; Z99.81 Dependence on supplemental oxygen; Z79.4 Long term (current) use of insulin
CPT/HCPCS: 36415; 80053; 80061; 80323; 82131; 82306; 82728; 82746; 83036; 83540; 83735; 83880; 83970; 84100; 84134; 84425; 84443; 84446; 84590; 85025; G0480

== ENCOUNTER → 2020-12-12 13:21 | Outpatient (CLI) | payer BC, SELFPAY ==
--- NOTE | 2020-12-12 13:24 | XR_ITS ---
PROCEDURE: XR CHEST 2V CLINICAL HISTORY: Coughing COMPARISON: No exams were available for comparison FINDINGS: Mild cardiomegaly without failure. There is vascular crowding in the lung bases with mild atelectatic change in the left lung base. No lobar consolidation or collapse. No acute bony abnormalities. IMPRESSION: Mild cardiomegaly with mild left basilar atelectasis otherwise negative Dictated by: Veto Zhang MD 12/12/2020 14:07 Veto Zhang MD in [place] 12/12/2020 14:07
== END ==
PROVIDERS: PCP Physician Assistant; Visit Provider Physician Assistant
DX: R05 Cough (principal)
CPT/HCPCS: 71046

== ENCOUNTER 2020-12-14 22:07 | Emergency (ER) | payer BC, SELFPAY ==
[2020-12-14 22:08] VITALS: BP 101/52; PULSE 62; RESP 21; TEMP 36.6; O2SAT 94; BMI 76.7
--- NOTE | 2020-12-14 22:25 | ECG_ITS ---
APPROVED REPORT Exam: Resting ECG HR:65 bpm ECG Measurements Heart Rate 65 AXES CO 240 P 49 QRSd 98 QRS -22 QT 392 T 23 QTc 407 Conclusion Sinus rhythm with marked sinus arrhythmia with 1st degree AV block LAFB with LAD Abnormal ECG Electronically signed by : Asad Judge, 12/16/2020 08:53:58
[2020-12-14 22:29] VITALS: BMI 76.8
--- NOTE | 2020-12-14 22:30 | XR_ITS ---
PROCEDURE INFORMATION: Exam: XR Chest Exam date and time: 12/14/2020 11:24 PM Age: 45 years old Clinical indication: Patient HX: Follow up, PT feels dizzy, had gastric sleeve surgery 1 week ago, best images due to PT body habitus TECHNIQUE: Imaging protocol: XR of the chest. Views: 2 views. COMPARISON: CR XR CHEST 2V 12/14/2020 11:05 PM FINDINGS: Lungs: Central pulmonary/vascular markings are prominent. Left lower lung atelectasis. Pleural spaces: Unremarkable. No pleural effusion. No pneumothorax. Heart/Mediastinum: The heart is enlarged. Bones/joints: Unremarkable. IMPRESSION: 1. Cardiomegaly with findings suggestive of failure. 2. Left lower lung atelectasis.
[2020-12-14 22:36] LABS: Basophils % 0.3 % (0.1-2.0); Eosinophils # 0.1 K/mm3 (0.0-0.4); Eosinophils % 2.4 % (0.1-12.0); Hematocrit 35.9 % (42.0-52.0); Hemoglobin 11.9 g/dL (14.1-18.0); Lymphocytes # 1.4 K/mm3 (0.7-4.5); Mean Corpuscular HGB Conc 33.1 g/dL (31.8-35.4); Mean Corpuscular Hemoglobin 29.3 pg (27.0-31.2); Mean Corpuscular Volume 88.6 fl (80-94); Mean Platelet Volume 9.8 fl (7.4-10.4); Monocytes # 0.4 K/mm3 (0.1-1.0); Monocytes % 6.3 % (1.7-9.3); Neutrophils # 3.9 K/mm3 (1.8-7.8); Neutrophils % 66.9 % (37.0-80.0); Platelet Count 139 K/mm3 (142-424); Red Blood Count 4.05 M/mm3 (4.60-6.20); White Blood Count 5.8 K/mm3 (4.8-10.8)
[2020-12-14 22:45] LABS: Chloride 91 mmol/L (98-107); Potassium 4.9 mmoL/L (3.5-5.1); Sodium 130 mmol/L (136-145)
[2020-12-14 22:48] LABS: Alanine Aminotransferase 22 U/L (12-78); Albumin/Globulin Ratio 1.2 (1.1-1.8); Alkaline Phosphatase 67 U/L (38-126); Anion Gap 16.9 mEq/L (5-15); Aspartate Amino Transferase 23 U/L (17-59); Bilirubin,Total 0.7 mg/dl (0.2-1.3); Blood Urea Nitrogen 63 mg/dl (9-20); Carbon Dioxide 27 mmol/L (22.0-30.0); Creatinine Clearance Estimated 40 mL/min (50-200); Estimated Glomerular Filt Rate 27 ml/min (>60); GFR (African American) 33 ML/MIN (>60); Globulin 3.3 g/dL (1.3-3.2); Phosphorous 5.3 mg/dl (2.5-4.5); Total Protein,Serum 7.3 g/dl (6.3-8.2)
[2020-12-14 22:49] LABS: Calcium 8.9 mg/dl (8.4-10.2); Glucose 137 mg/dl (74-100); Magnesium 2.3 mg/dl (1.6-2.3)
[2020-12-14 23:01] LABS: Troponin I < 0.01 ng/ml (0.00-0.034)
--- NOTE | 2020-12-14 23:08 | PC.NURSE ---
Spoke with Kylee catastrophe claims supervisor at [facility] for medical records. Medical release signed by pt and faxed to [phone]
[2020-12-14 23:30] VITALS: BP 82/50; PULSE 60; O2SAT 94
--- NOTE | 2020-12-14 23:33 | HMH.EDWEAK ---
ED Disposition Clinical Impression: LIZZETTE (acute kidney injury), Morbid obesity with body mass index of 70 and over in adult, Recent major surgery Disposition: Home, Self-Care Condition on Discharge: Good Instructions: DI for Muscle Weakness Additional Instructions: fluids and dec lasix and call pcp and surg for follow up Referrals: Petty Frost PA [Primary Care Provider] - - Critical Care Critical Care Time: No Attestation: On 12/14/20, the high probability of a clinically significant, sudden or life threatening deterioration of the following system(s) required my full and direct attention, intervention and personal management. The time I documented below is in addition to time spent performing reported procedures but includes the following listed in this critical care notation. Medical Decision Making - Medical Records Medical records reviewed: Yes: I reviewed the patient's medical records. - Sy Inquiry Pt receiving controlled substance: No Vital Signs: 12/14/20 22:08 12/14/20 23:30 12/15/20 00:26 Temperature 97.9 F Temperature Source Oral Pulse Rate 60 68 Pulse Rate [Right Radial] 62 Respiratory Rate 21 16 Blood Pressure 82/50 L 85/50 L Blood Pressure [Right Arm] 101/52 L Blood Pressure Mean Blood Pressure Mean [Right Arm] 68 Blood Pressure Source Manual Cuff/ Auscultation Automatic Cuff Blood Pressure Source [Right Arm] Automatic Cuff Blood Pressure Position Sitting Sitting Blood Pressure Position [Right Arm] Sitting 02 Sat by Pulse Oximetry 94 L 94 L 95 Oxygen Delivery Method Room Air Room Air Room Air 12/15/20 00:36 12/15/20 00:59 12/15/20 01:26 Temperature Temperature Source Pulse Rate 63 59 L 62 Pulse Rate [Right Radial] Respiratory Rate 19 15 Blood Pressure 99/45 L 98/56 L 84/50 L Blood Pressure [Right Arm] Blood Pressure Mean 65 Blood Pressure Mean [Right Arm] Blood Pressure Source Automatic Cuff Automatic Cuff Blood Pressure Source [Right Arm] Blood Pressure Position Sitting Supine Blood Pressure Position [Right Arm] 02 Sat by Pulse Oximetry 95 95 Oxygen Delivery Method Room Air Room Air 12/15/20 01:30 12/15/20 01:45 12/15/20 02:00 Temperature Temperature Source Pulse Rate 61 65 70 Pulse Rate [Right Radial] Respiratory Rate 14 19 15 Blood Pressure 87/58 L 104/60 L 98/49 L Blood Pressure [Right Arm] Blood Pressure Mean Blood Pressure Mean [Right Arm] Blood Pressure Source Blood Pressure Source [Right Arm] Blood Pressure Position Blood Pressure Position [Right Arm] 02 Sat by Pulse Oximetry 96 95 97 Oxygen Delivery Method Room Air - Lab Data Lab results reviewed: Yes: I reviewed the patient's lab results. Lab Results 12/14/20 22:20: WBC 5.8, RBC 4.05 L, Hgb 11.9 L, Hct 35.9 L, MCV 88.6, MCH 29.3, MCHC 33.1, RDW 16.0, Plt Count 139 L, MPV 9.8, Neut % (Auto) 66.9, Lymph % (Auto) 24.0, [place] % (Auto) 6.3, Eos % (Auto) 2.4, Baso % (Auto) 0.3, Neut # (Auto) 3.9, Lymph # (Auto) 1.4, [place] # (Auto) 0.4, Eos # (Auto) 0.1, Baso # (Auto) 0.0 12/14/20 22:20: Sodium 130 L, Potassium 4.9, Chloride 91 L, Carbon Dioxide 27, Anion Gap 16.9 H, BUN 63 H, Creatinine 2.60 H, Estimated Creat Clear 40, Estimated GFR 27 L, Est GFR ( Amer) 33 L, Glucose 137 H, Calcium 8.9, Phosphorus 5.3 H, Magnesium 2.3, Total Bilirubin 0.7, AST 23, ALT 22, Alkaline Phosphatase 67, Troponin I < 0.01, Total Protein 7.3, Albumin 4.0, Globulin 3.3 H, Albumin/Globulin Ratio 1.2 12/15/20 01:03: Troponin I < 0.01 12/15/20 01:03: Amylase < 30 L, Lipase 76 Result diagrams: 12/14/20 22:20 12/14/20 22:20 Orders (Tests/Meds): ED MEDICATIONS Generic Name Dose Route Start Last Admin Trade Name Freq PRN Reason Stop Dose Admin Sodium Chloride 1,000 mls @ 999 mls/hr 12/14/20 22:45 12/14/20 22:45 Sod Chlor 0.9% 1000ml Bag IV 12/14/20 23:45 999 mls/hr .Q1H1M KATHE Administration Sodium Chloride 1,000 mls @ 99
[2020-12-15] VITALS (8 sets, daily range): BP systolic 84–108; BP diastolic 43–60; PULSE 59–70; RESP 14–19; TEMP 36.6; O2SAT 95–97
[2020-12-15 01:19] LABS: Lipase 76 U/L (23-300)
--- NOTE | 2020-12-15 01:24 | PC.NURSE ---
This Rn called [facility] for contact info for bariatric surgeon. [facility] says they will call back with info.
[2020-12-15 01:29] LABS: Amylase < 30 U/L (30-110)
[2020-12-15 01:36] LABS: Troponin I < 0.01 ng/ml (0.00-0.034)
== END 2020-12-15 02:30 | disposition home or self-care (01) ==
PROVIDERS: Emergency Provider Emergency Medicine; PCP Physician Assistant
DX: N17.9 Acute kidney failure, unspecified (principal); Z98.84 Bariatric surgery status; E66.01 Morbid (severe) obesity due to excess calories; Z68.45 Body mass index [BMI] 70 or greater, adult; I48.91 Unspecified atrial fibrillation; J44.9 Chronic obstructive pulmonary disease, unspecified; I50.9 Heart failure, unspecified; F41.8 Other specified anxiety disorders; I10 Essential (primary) hypertension; E78.5 Hyperlipidemia, unspecified; K21.9 Gastro-esophageal reflux disease without esophagitis; Z79.899 Other long term (current) drug therapy
CPT/HCPCS: 71046; 80053; 82150; 83690; 83735; 84100; 84484; 85025; 93005; 96365; 96366; 96367; 99282

== ENCOUNTER → 2020-12-20 14:50 | Outpatient (CLI) | payer BC, SELFPAY ==
[2020-12-20 15:37] LABS: Basophils % 0.3 % (0.1-2.0); Eosinophils # 0.2 K/mm3 (0.0-0.4); Hematocrit 38.8 % (42.0-52.0); Hemoglobin 12.5 g/dL (14.1-18.0); Lymphocytes # 1.1 K/mm3 (0.7-4.5); Mean Corpuscular HGB Conc 32.4 g/dL (31.8-35.4); Mean Corpuscular Hemoglobin 28.8 pg (27.0-31.2); Mean Corpuscular Volume 89.1 fl (80-94); Mean Platelet Volume 7.5 fl (7.4-10.4); Monocytes # 0.4 K/mm3 (0.1-1.0); Monocytes % 4.5 % (1.7-9.3); Neutrophils # 6.2 K/mm3 (1.8-7.8); Neutrophils % 79.1 % (37.0-80.0); Platelet Count 148 K/mm3 (142-424); Red Blood Count 4.35 M/mm3 (4.60-6.20); Red Cell Distribution Width 15.5 % (11.5-17.5); White Blood Count 7.9 K/mm3 (4.8-10.8)
[2020-12-20 16:12] LABS: Erythrocyte Sedimentation Rate 92 mm/hr (0-15)
[2020-12-20 16:25] LABS: Chloride 96 mmol/L (98-107); Sodium 134 mmol/L (136-145)
[2020-12-20 16:28] LABS: Alanine Aminotransferase 33 U/L (12-78); Albumin Level 4.6 g/dl (3.5-5.0); Albumin/Globulin Ratio 1.3 (1.1-1.8); Alkaline Phosphatase 82 U/L (38-126); Aspartate Amino Transferase 32 U/L (17-59); Bilirubin,Total 0.8 mg/dl (0.2-1.3); Blood Urea Nitrogen 13 mg/dl (9-20); Calcium 9.5 mg/dl (8.4-10.2); Carbon Dioxide 26 mmol/L (22.0-30.0); Estimated Glomerular Filt Rate 147 ml/min (>60); GFR (African American) 178 ML/MIN (>60); Globulin 3.6 g/dL (1.3-3.2); Glucose 192 mg/dl (74-100); Total Protein,Serum 8.2 g/dl (6.3-8.2)
[2020-12-20 16:34] LABS: C-Reactive Protein 15.6 mg/L (0-4)
== END ==
PROVIDERS: Nurse Practitioner; Visit Provider Physician Assistant
DX: Z98.84 Bariatric surgery status (principal); Z51.89 Encounter for other specified aftercare; E66.01 Morbid (severe) obesity due to excess calories; E11.9 Type 2 diabetes mellitus without complications; Z68.45 Body mass index [BMI] 70 or greater, adult; Z79.4 Long term (current) use of insulin; N17.9 Acute kidney failure, unspecified; I50.33 Acute on chronic diastolic (congestive) heart failure
CPT/HCPCS: 36415; 80053; 85025; 85651; 86140

== ENCOUNTER → 2021-01-21 13:40 | Outpatient (CLI) | payer BC, SELFPAY ==
[2021-01-21 14:21] LABS: Basophils % 0.5 % (0.1-2.0); Eosinophils # 0.1 K/mm3 (0.0-0.4); Eosinophils % 1.7 % (0.1-12.0); Hematocrit 40.9 % (42.0-52.0); Hemoglobin 13.9 g/dL (14.1-18.0); Lymphocytes % 13.7 % (10-50); Mean Corpuscular HGB Conc 33.9 g/dL (31.8-35.4); Mean Corpuscular Hemoglobin 29.1 pg (27.0-31.2); Mean Corpuscular Volume 85.9 fl (80-94); Mean Platelet Volume 8.5 fl (7.4-10.4); Monocytes # 0.3 K/mm3 (0.1-1.0); Monocytes % 4.4 % (1.7-9.3); Neutrophils % 79.7 % (37.0-80.0); Platelet Count 152 K/mm3 (142-424); Red Blood Count 4.76 M/mm3 (4.60-6.20); Red Cell Distribution Width 16.3 % (11.5-17.5); White Blood Count 7.5 K/mm3 (4.8-10.8)
[2021-01-21 18:30] LABS: Anion Gap 20.2 mEq/L (5-15); Blood Urea Nitrogen 13 mg/dl (9-20); Calcium 9.1 mg/dl (8.4-10.2); Carbon Dioxide 28 mmol/L (22.0-30.0); Chloride 94 mmol/L (98-107); Estimated Glomerular Filt Rate 181 ml/min (>60); GFR (African American) 220 ML/MIN (>60); Glucose 287 mg/dl (74-100); Potassium 4.2 mmoL/L (3.5-5.1); Sodium 138 mmol/L (136-145)
[2021-01-21 18:40] LABS: NT Pro Brain Natriuretic Pep. 62.6 pg/mL (0-125)
== END ==
PROVIDERS: Visit Provider Urology
DX: I50.9 Heart failure, unspecified (principal); R60.9 Edema, unspecified
CPT/HCPCS: 36415; 80048; 83880; 85025

== ENCOUNTER → 2021-02-11 13:42 | Outpatient (CLI) | payer BC, SELFPAY ==
[2021-02-11 15:14] LABS: Chloride 97 mmol/L (98-107); Potassium 4.6 mmoL/L (3.5-5.1); Sodium 136 mmol/L (136-145)
[2021-02-11 15:17] LABS: Blood Urea Nitrogen 10 mg/dl (9-20); Estimated Glomerular Filt Rate 123 ml/min (>60); GFR (African American) 149 ML/MIN (>60)
[2021-02-11 15:18] LABS: Anion Gap 15.6 mEq/L (5-15); Calcium 9.5 mg/dl (8.4-10.2); Carbon Dioxide 28 mmol/L (22.0-30.0); Glucose 332 mg/dl (74-100)
== END ==
PROVIDERS: Visit Provider Urology
DX: R06.02 Shortness of breath (principal); E11.42 Type 2 diabetes mellitus with diabetic polyneuropathy; E11.65 Type 2 diabetes mellitus with hyperglycemia; I10 Essential (primary) hypertension; I48.0 Paroxysmal atrial fibrillation; I50.33 Acute on chronic diastolic (congestive) heart failure; J44.9 Chronic obstructive pulmonary disease, unspecified; R60.1 Generalized edema
CPT/HCPCS: 36415; 80048

== ENCOUNTER → 2021-04-04 08:40 | Outpatient (CLI) | payer BC, SELFPAY ==
--- NOTE | 2021-04-04 08:46 | XR_ITS ---
PROCEDURE: XR KNEE LT 4V CLINICAL INDICATION: BL knee pain COMPARISON: CR KNEE3L KNEE-3 VIEWS-LT from 11/26/2015 FINDINGS: No fracture or dislocation. No lytic or blastic change. There is normal mineralization. There are moderate osteoarthritic changes involving all 3 compartments greatest at the medial compartment and patellofemoral joint. No lytic or blastic change. There is a small suprapatellar effusion suspected. The osteoarthritis has progressed compared to 11/26/2015 Other findings:None. IMPRESSION: Moderate osteoarthritic change with suspected small suprapatellar effusion Dictated by: Veto Zhang MD 04/04/2021 10:28 Veto Zhang MD in [place] 04/04/2021 10:28
--- NOTE | 2021-04-04 08:46 | XR_ITS ---
PROCEDURE: XR KNEE RT 4V CLINICAL INDICATION: BL knee pain COMPARISON: CR KNEE3L KNEE-3 VIEWS-LT from 11/26/2015 FINDINGS: No fracture or dislocation. No lytic or blastic change. There is normal mineralization. Mild osteoarthritic changes are present involving all 3 compartments most prominent at the medial compartment with decrease in the medial joint space. Small osteophytes are present laterally Other findings:None. IMPRESSION: Mild osteoarthritis Dictated by: Veto Zhang MD 04/04/2021 10:57 Veto Zhang MD in [place] 04/04/2021 10:57
== END ==
PROVIDERS: PCP Physician Assistant; Visit Provider Orthopaedic Surgery
DX: M25.561 Pain in right knee (principal); M25.562 Pain in left knee
CPT/HCPCS: 73564

== ENCOUNTER → 2021-04-25 18:04 | Outpatient (CLI) | payer BC, SELFPAY ==
[2021-04-25 18:47] LABS: Hemoglobin A1C 13.1 % (4.0-6.0)
== END ==
PROVIDERS: Visit Provider Physician Assistant
DX: E11.9 Type 2 diabetes mellitus without complications (principal); Z79.4 Long term (current) use of insulin
CPT/HCPCS: 83036

== ENCOUNTER 2021-05-08 10:00 | Outpatient (RCR) | payer BC, SELFPAY ==
--- NOTE | 2021-04-11 14:15 | HMH.PTOPEV ---
PT Outpatient Evaluation Rehab PT Outpatient Evaluation Start: 04/11/21 13:08 Freq: Status: Active Protocol: Document 04/11/21 13:51 NUVIA (Rec: 04/11/21 14:11 PHORPRECIOUS [id number]) Electronically Signed By Colin Malhotra, PT 04/11/21 13:51 Outpatient Therapy Subjective History Subjective History Pt is 45 year old male who presents with c/o B knee pain for several years. Pt reports his pain has worsened over last ~3 months to sharp 8/10 at worst. He states he underwent bariatric weight loss surgery ~3 mos ago and has lost ~60 lbs - he believes this has helped with regaining mvmt. He received cortisone injections ~6 days ago and reports significant pain relief. Pt feels unstable without a cane due to B diabetic neuropathy. Eval completed by Sylwia Goayl, SPT . Chief Complaint Pain,Gives out/Unstable Symptom Type Sharp Symptoms Relieved By Rest/Positioning Symptoms Aggravated By Standing,Bending/Stooping, Physical Activity,Walking Prior Functional Limitations None Current Functional Limitations Housework,Driving,Standing, Squatting,Recreation Activity, Walking,Stairs Symptom Description Intermittent Level of pain today (0-10) 1 Pain scale - at its best (0-10) 1 Pain scale - at its worst (0-10) 8 Hip/Knee Eval Assistive Device Assistive Devices Straight Cane Palpation Tenderness bilateral Knee Palpation Finding Tenderness Knee Palpation Overall Comment Quad tendon and patellar tendon MMT Hip Flexion Strength Grade 5 Normal Knee Extension Strength Grade 5 Normal Knee Flexion Strength Grade 5 Normal ROM right Hip ROM Limitations Soft Tissue Tightness Hip ROM Reason Not Measured Within Functional Limits Knee Extension Active Range of Motion ( 15 degrees) Knee Flexion Active Range of Motion ( 75 degrees) Knee ROM Limitations Soft Tissue Tightness Sensation bilateral LE Dermatome Level L4,L5,S1,S2 Comment diminished sensation mid-leg/ mid-calf down Special Tests Knee Anterior Drawer Test Negative
== END 2021-05-08 10:05 | disposition home or self-care (01) ==
LOC: PT 10:00
PROVIDERS: PCP Physician Assistant; Visit Provider Orthopaedic Surgery
DX: M25.562 Pain in left knee (principal); M25.561 Pain in right knee
CPT/HCPCS: 97010; 97014; 97110; 97163; G0283

== ENCOUNTER → 2021-06-21 13:57 | Outpatient (CLI) | payer BC, SELFPAY | PROVIDERS: PCP Physician Assistant; Visit Provider Nurse Practitioner | DX: U07.1 COVID-19 (principal) | CPT/HCPCS: C9803; U0003; U0005 ==

== ENCOUNTER → 2021-07-17 17:09 | Outpatient (CLI) | payer BC, SELFPAY ==
[2021-07-17 19:56] LABS: Vitamin B12 352 pg/mL (239-931)
== END ==
PROVIDERS: Visit Provider Specialist
DX: R41.3 Other amnesia (principal)
CPT/HCPCS: 36415; 82607

== ENCOUNTER → 2021-07-26 17:46 | Outpatient (CLI) | payer BC, SELFPAY ==
[2021-07-26 18:50] LABS: Amphetamine/Metha Screen,Urine Negative ng/ml (<1000)
[2021-07-26 18:51] LABS: Barbiturates Screen,Urine Negative ng/ml (<200)
[2021-07-26 18:52] LABS: Benzodiazepines Screen,Urine Negative ng/ml (<200); Cannabinoid Screen,Urine Negative ng/ml (<50)
[2021-07-26 18:53] LABS: Cocaine Screen,Urine Negative ng/ml (<300)
[2021-07-26 18:54] LABS: Methadone Screen,Urine Negative ng/ml (<300); Opiate Screen,Urine Positive ng/ml (<300)
[2021-07-26 18:55] LABS: Phencyclidine Screen,Urine Negative ng/ml (<25)
== END ==
PROVIDERS: Visit Provider Nurse Practitioner Family
DX: F41.9 Anxiety disorder, unspecified (principal)
CPT/HCPCS: 80305

== ENCOUNTER 2021-07-30 03:52 | Emergency (ER) | payer BC, SELFPAY ==
[2021-07-30 03:53] VITALS: BP 156/75; PULSE 92; RESP 23; TEMP 36.8; O2SAT 88; BMI 71.8
[2021-07-30 04:17] VITALS: BMI 71.8
--- NOTE | 2021-07-30 04:20 | XR_ITS ---
PROCEDURE INFORMATION: Exam: XR Chest Exam date and time: 07/30/2021 4:20 AM Age: 46 years old Clinical indication: Shortness of breath; Additional info: SOA, low o2 @ home TECHNIQUE: Imaging protocol: XR of the chest. Views: 2 views. COMPARISON: CR XR CHEST 2V 12/14/2020 11:24 PM FINDINGS: Lungs: Nonspecific bibasilar opacities, favoring atelectasis or pneumonia. Pleural spaces: Probable pleural effusions. Heart/Mediastinum: Unremarkable cardiomediastinal silhouette. Bones/joints: No acute osseous findings. IMPRESSION: Nonspecific bibasilar opacities, favoring atelectasis or pneumonia. Recommend imaging follow-up until complete resolution.
[2021-07-30 04:30] LABS: Coronavirus 19, PCR Not Detected (NotDetected); Influenza A, PCR Not Detected (NotDetected); Influenza B, PCR Not Detected (NotDetected)
[2021-07-30 04:37] LABS: Basophils % 0.5 % (0.1-2.0); Hematocrit 42.8 % (42.0-52.0); Hemoglobin 13.2 g/dL (14.1-18.0); Lymphocytes # 0.7 K/mm3 (0.7-4.5); Lymphocytes % 8.6 % (10-50); Mean Corpuscular HGB Conc 30.8 g/dL (31.8-35.4); Mean Corpuscular Hemoglobin 31.9 pg (27.0-31.2); Mean Corpuscular Volume 103.7 fl (80-94); Mean Platelet Volume 8.5 fl (7.4-10.4); Monocytes # 0.2 K/mm3 (0.1-1.0); Monocytes % 2.3 % (1.7-9.3); Neutrophils # 7.4 K/mm3 (1.8-7.8); Neutrophils % 88.6 % (37.0-80.0); Platelet Count 187 K/mm3 (142-424); Red Blood Count 4.12 M/mm3 (4.60-6.20); Red Cell Distribution Width 15.7 % (11.5-17.5); White Blood Count 8.4 K/mm3 (4.8-10.8)
[2021-07-30 04:41] LABS: Alanine Aminotransferase 30 U/L (12-78); Albumin Level 4.1 g/dl (3.5-5.0); Albumin/Globulin Ratio 1.2 (1.1-1.8); Alkaline Phosphatase 69 U/L (38-126); Anion Gap 20.8 mEq/L (5-15); Aspartate Amino Transferase 44 U/L (17-59); Bilirubin,Total 0.6 mg/dl (0.2-1.3); Blood Urea Nitrogen 5 mg/dl (9-20); Calcium 9.5 mg/dl (8.4-10.2); Carbon Dioxide 31 mmol/L (22.0-30.0); Chloride 83 mmol/L (98-107); Creatinine Clearance Estimated 207 mL/min (50-200); Estimated Glomerular Filt Rate 181 ml/min (>60); GFR (African American) 219 ML/MIN (>60); Globulin 3.4 g/dL (1.3-3.2); Glucose 296 mg/dl (74-100); Magnesium 1.4 mg/dl (1.6-2.3); Potassium 3.8 mmoL/L (3.5-5.1); Sodium 131 mmol/L (136-145); Total Protein,Serum 7.5 g/dl (6.3-8.2)
--- NOTE | 2021-07-30 04:45 | ECG_ITS ---
APPROVED REPORT Exam: Resting ECG HR:80 bpm ECG Measurements Heart Rate 80 AXES AL 154 P 44 QRSd 124 QRS -35 QT 410 T 12 QTc 472 Conclusion Normal sinus rhythm with sinus arrhythmia Left axis deviation Left ventricular hypertrophy with QRS widening Abnormal ECG Electronically signed by : Asad Judge MD 07/30/2021 19:54:47
[2021-07-30 04:46] LABS: C-Reactive Protein 46.4 mg/L (0-4)
[2021-07-30 04:49] LABS: NT Pro Brain Natriuretic Pep. 131 pg/mL (0-125)
[2021-07-30 04:55] LABS: MANUAL DIFFERENTIAL MANUAL DIFFERENTIAL (MANUAL DIFF)
[2021-07-30 04:58] LABS: Procalcitonin 0.097 ng/mL (0.0-2.0)
[2021-07-30 05:01] VITALS: BP 141/71; PULSE 72; O2SAT 95
[2021-07-30 05:02] LABS: Troponin I < 0.01 ng/ml (0.00-0.034)
[2021-07-30 05:20] LABS: Erythrocyte Sedimentation Rate 43 mm/hr (0-15)
--- NOTE | 2021-07-30 05:21 | HMH.EDSOB ---
ED Disposition Clinical Impression: COPD (chronic obstructive pulmonary disease) Qualifiers: COPD type: unspecified COPD Qualified Code(s): J44.9 - Chronic obstructive pulmonary disease, unspecified CHF (congestive heart failure) Qualifiers: Heart failure type: unspecified Heart failure chronicity: acute on chronic Qualified Code(s): I50.9 - Heart failure, unspecified Disposition: Home, Self-Care Condition on Discharge: Good Instructions: DI for Shortness of Breath Additional Instructions: see card and pcp for follow up Referrals: Petty Frost PA [Primary Care Provider] - - Critical Care Critical Care Time: No Attestation: On 07/30/21, the high probability of a clinically significant, sudden or life threatening deterioration of the following system(s) required my full and direct attention, intervention and personal management. The time I documented below is in addition to time spent performing reported procedures but includes the following listed in this critical care notation. Medical Decision Making - Medical Records Medical records reviewed: Yes: I reviewed the patient's medical records. - Sy Inquiry Pt receiving controlled substance: No Vital Signs: 07/30/21 03:53 07/30/21 05:01 07/30/21 06:00 Temperature 98.2 F Temperature Source Oral Pulse Rate 72 84 Pulse Rate [Right] 92 H Respiratory Rate 23 Blood Pressure 141/71 H 113/84 Blood Pressure [Right Arm] 156/75 H Blood Pressure Mean [Right Arm] 102 02 Sat by Pulse Oximetry 88 L 95 94 L Oxygen Delivery Method Room Air Nasal Cannula Nasal Cannula Oxygen Flow Rate (LPM) 2 2 07/30/21 06:31 Temperature Temperature Source Pulse Rate 85 Pulse Rate [Right] Respiratory Rate Blood Pressure 102/85 L Blood Pressure [Right Arm] Blood Pressure Mean [Right Arm] 02 Sat by Pulse Oximetry 96 Oxygen Delivery Method Nasal Cannula Oxygen Flow Rate (LPM) 2 - Lab Data Lab results reviewed: Yes: I reviewed the patient's lab results. Lab Results 07/30/21 04:03: SARS-CoV-2 (PCR) Not detected, Influenza A Untype (PCR) Not detected, Influenza Type B (PCR) Not detected 07/30/21 04:10: ESR 43 H 07/30/21 04:10: Troponin I < 0.01, C-Reactive Protein 46.4 H, Procalcitonin 0.097 07/30/21 04:10: WBC 8.4, RBC 4.12 L, Hgb 13.2 L, Hct 42.8, MCV 103.7 H, MCH 31.9 H, MCHC 30.8 L, RDW 15.7, Plt Count 187, MPV 8.5, Neut % (Auto) 88.6 H, Lymph % (Auto) 8.6 L, [place] % (Auto) 2.3, Eos % (Auto) 0.0 L, Baso % (Auto) 0.5, Neut # (Auto) 7.4, Lymph # (Auto) 0.7, [place] # (Auto) 0.2, Eos # (Auto) 0.0, Baso # (Auto) 0.0, Total Counted 100, Neutrophils % (Manual) 86 H, Lymphocytes % (Manual) 13, Eosinophils % (Manual) 1, Platelet Estimate Normal, Macrocytosis 1+, Stomatocytes 1+ 07/30/21 04:10: Sodium 131 L, Potassium 3.8, Chloride 83 L, Carbon Dioxide 31 H, Anion Gap 20.8 H, BUN 5 L, Creatinine 0.50 L, Estimated Creat Clear 207, Estimated GFR 181, Est GFR ( Amer) 219, Glucose 296 H, Calcium 9.5, Magnesium 1.4 L, Total Bilirubin 0.6, AST 44, ALT 30, Alkaline Phosphatase 69, NT-Pro-B Natriuret Pep 131 H, Total Protein 7.5, Albumin 4.1, Globulin 3.4 H, Albumin/Globulin Ratio 1.2 07/30/21 04:10: Acetone Level None detected 07/30/21 04:10: Hemoglobin A1c 8.0 H D 07/30/21 05:31: Urine Color Yellow, Urine Appearance Clear, Urine pH 6.0, Ur Specific [place] 1.020, Urine Protein Negative, Urine Glucose (UA) 3+, Urine Ketones 1+, Urine Blood Trace-l, Urine Nitrate Negative, Urine Bilirubin Negative, Urine Urobilinogen 0.2, Ur Leukocyte Esterase Negative, Urine RBC 5-10, Urine WBC 3-5, Ur Squamous Epith Cells 3-5, Urine Bacteria Trace Result diagrams: 07/30/21 04:10 07/30/21 04:10 Orders (Tests/Meds): ED MEDICATIONS Generic Name Dose Route Start Last Admin Trade Name Freq PRN Reason Stop Dose Admin Sodium Chloride 1,000 mls @ 999 mls/hr 07/30/21 04:30 07/30/21 05:39 Sod Chlor 0.9% 1000ml Bag IV 07/30/21 05:30 Not Given .Q1H1M KATHE Discontinued M
[2021-07-30 05:30] LABS: Acetone, Serum (Rapid) None Detected (None Detect)
[2021-07-30 05:35] LABS: Microscopic, Urine URINE MICROSCOPIC (MICROSCOPIC)
[2021-07-30 05:41] LABS: Appearance,Urine CLEAR (Clear); Bilirubin,Urine Negative (Negative); Blood, Urine TRACE-L (Negative); Color,Urine YELLOW (Yellow); Glucose,Urine (UA) 3+ (Negative); Ketones,Urine 1+ (Negative); Leukocyte Esterase,Urine Negative (Negative); Nitrate,Urine Negative (Negative); Protein,Urine Negative (Negative); Urobilinogen,Urine 0.2 EU/dl (0.2)
[2021-07-30 05:56] LABS: Bacteria,Urine Trace /lpf
[2021-07-30 06:00] VITALS: BP 113/84; PULSE 84; O2SAT 94
[2021-07-30 06:19] LABS: Eosinophils % 1 % (0-3); Lymphocytes % 13 % (10-50); Neutrophils % 86 % (42-76); Total Cells Counted 100
[2021-07-30 06:20] LABS: Macrocytosis 1+; Platelet Estimate Normal
[2021-07-30 06:21] LABS: Stomatocytes 1+
[2021-07-30 06:31] VITALS: BP 102/85; PULSE 85; O2SAT 96
[2021-07-30 07:02] VITALS: BP 108/83; PULSE 89; RESP 20; TEMP 36.7; O2SAT 94
[2021-07-30 07:48] LABS: T4 (Thyroxine) 10.1 ug/dl (5.53-11.0)
[2021-07-30 08:02] LABS: Thyroid Stimulating Hormone 0.62 uIU/mL (0.465-4.68)
== END 2021-07-30 07:15 | disposition home or self-care (01) ==
PROVIDERS: Emergency Provider Emergency Medicine; PCP Physician Assistant
DX: J44.0 Chronic obstructive pulmonary disease with (acute) lower respiratory infection (principal); I50.9 Heart failure, unspecified; Z20.822 Contact with and (suspected) exposure to COVID-19; I10 Essential (primary) hypertension; E78.5 Hyperlipidemia, unspecified; E11.9 Type 2 diabetes mellitus without complications; K21.9 Gastro-esophageal reflux disease without esophagitis; I48.0 Paroxysmal atrial fibrillation
CPT/HCPCS: 71046; 80053; 81001; 82009; 83036; 83735; 83880; 84145; 84436; 84443; 84484; 85007; 85025; 85651; 86140; 93005; 96374; 96375; 99284; C9803; U0003; U0005

== ENCOUNTER → 2021-08-05 13:23 | Outpatient (CLI) | payer BC, SELFPAY ==
--- NOTE | 2021-08-05 13:24 | CT_ITS ---
FINAL REPORT TECHNIQUE: Axial images were obtained through the chest without contrast. CLINICAL HISTORY: dyspnea-order was for chest with and without// did the without scan and IV extravistated and we were not able to do the contrast-- we applied cold compress -- patient refused ice and did not want to try for another IV -- patient is obese and imaging was difficult for patient FINDINGS: Note: There was extravasation of contrast on IV injection and patient refused ice and did not want another attempt at IV contrast. There is mild patchy ground-glass opacities in both lungs. There is bibasilar atelectasis, right greater than left. The heart size is normal. There is no pericardial or pleural effusion. Limited images of the upper abdomen demonstrates postoperative changes from gastric sleeve. The liver has a nodular margin consistent with cirrhosis. There is ascites in the upper abdomen. There is hazy stranding along the root of the mesentery. The spleen measures 17 cm in craniocaudal dimension. No suspicious infiltrate or nodule identified. IMPRESSION: Patchy ground-glass opacities bilaterally concerning for acute viral pneumonia. Nodular liver contour with splenomegaly and ascites, concerning for cirrhosis and portal venous hypertension. Reviewed, Interpreted and Dictated by Immanuel Verdin MD Transcribed by Anne-Marie Foote Authenticated by Immanuel Verdin MD on 08/05/2021 04:07:04 PM [facility]
--- NOTE | 2021-08-05 13:31 | CA_ITS ---
APPROVED REPORT EXAM: Comprehensive 2D, Doppler, and color-flow Echocardiogram Pedorthist: Jing Crooks, RT(R) Ht: 6 ft 0 in Wt: 535lbs BSA: 3.24 BP: 133/56 mmHg Indications: SOB, AFIB, COPD, ex smoker, Fatigue, edema, HTN, DM, COVID /21, on home o2, chf, GERD, morbid obesity, hx bariatric surgery Echo Enhancing Agent Indication: Endocardial border delineation Agent(s) / Amount(s) Used: Definity 2 cc 2D Dimensions LVOT 2.56 cm (M/F) 1.5-2.5 M-Mode Dimensions RVDd 3.30 cm (0.9-2.6) LA Diam 3.87 cm (1.9-4.0) LVDd 5.42 cm (3.5-5.7) Ao Diam 3.50 cm (2.0-3.7) LVDs 4.49 cm (3.5-5.7) IVSd 1.19 cm (0.6-1.1) PWd 1.14 cm (0.6-1.1) EF (Teich) 35.40% FS 17.20% EDV (Teich) 142.50 mL ESV (Teich) 92.00 mL LV Diastology E Decel Time 263.00 (160-240 msec) E/A Ratio 1.5 MED E' 10.20 (< 7 cm/sec) E'/MED E' Ratio 7.73 (>14) LAT E' 9.40 (<10 cm/sec) E/LAT E' Ratio 8.38 (>14) Mitral Valve MV E Max Anhtony. 79.00 (40-130 cm/s) MV A Velocity 53.00 (40-130 cm/s) E/A Ratio 1.50 MV Decel. Time 263.00 (160-240 ms) MV PHT 77.00 ms Left Ventricle Technically very difficult and poor study, despite the use of Definity contrast endocardial surfaces are poorly visualized. Left atrium is mildly enlarged, left ventricle is normal size, mild concentric left ventricular hypertrophy, visually estimated ejection fraction is probably 55%, with no obvious regional wall motion abnormality in the visualized segments. Diastolic parameters are inconclusive. Right Ventricle Right atrium and right ventricle mildly enlarged with normal contractility. Aortic Valve Aortic valve is minimally thickened and fibrosed, there is no aortic stenosis or aortic insufficiency. Mitral Valve Mitral valve is grossly normal, there is trace mitral regurgitation. Tricuspid Valve Tricuspid valve is poorly visualized. Pulmonic Valve Pulmonic valve is poorly visualized. Great Vessels Aortic root is normal size. Inferior vena cava is not visualized. Pericardium No significant pericardial effusion noted. Conclusion 1. Technically very difficult and poor study, despite the use of Definity contrast endocardial surfaces are poorly visualized. 2. Biatrial enlargement, normal left ventricular size, mild concentric left ventricular hypertrophy, visually estimated ejection fraction 55% in the obtained views, there is no regional wall motion abnormality in the visualized segments. Diastolic parameters are inconclusive. 3. Mildly enlarged right ventricle with normal contractility. 4. Trace mitral regurgitation. 5. No significant pericardial effusion noted. 6. Inferior vena cava is poorly visualized. Electronically signed by : Bentley Prasad MD 08/05/2021 17:38:19
== END ==
PROVIDERS: PCP Physician Assistant; Visit Provider Urology
DX: R06.00 Dyspnea, unspecified (principal); I48.0 Paroxysmal atrial fibrillation; I11.0 Hypertensive heart disease with heart failure; I50.9 Heart failure, unspecified; R60.9 Edema, unspecified; E11.65 Type 2 diabetes mellitus with hyperglycemia; J44.9 Chronic obstructive pulmonary disease, unspecified; Z79.4 Long term (current) use of insulin
CPT/HCPCS: 71270; 93306; Q9957

== ENCOUNTER → 2021-08-15 11:44 | Outpatient (CLI) | payer BC, SELFPAY ==
--- NOTE | 2021-08-15 11:48 | US_ITS ---
FINAL REPORT TECHNIQUE: Ultrasound images of the testicles were obtained bilaterally. Color Doppler images were obtained. CLINICAL HISTORY: .ltg test swelling x 3 days FINDINGS: The right testicle measures 3.0 x 4.4 x 3.4 cm. The left testicle measures 2.9 x 3.6 x 3.3 cm. The left epididymis is enlarged and hypervascular which may represent left epididymitis. There is a small left hydrocele. Arterial flow is identified bilaterally. No intratesticular masses are identified. IMPRESSION: No evidence of testicular torsion or mass. Left epididymis is enlarged and hypervascular, may represent left epididymitis. Reviewed, Interpreted and Dictated by Rohith Fuentes III, MD Transcribed by Anne-Marie Foote Authenticated by Rohith Fuentes III, MD on 08/15/2021 01:00:33 PM [facility]
== END ==
PROVIDERS: PCP Physician Assistant; Visit Provider Family Medicine
DX: N44.00 Torsion of testis, unspecified (principal); N50.89 Other specified disorders of the male genital organs
CPT/HCPCS: 76870

== ENCOUNTER 2021-09-01 19:40 | Emergency (ER) | payer BC, SELFPAY ==
[2021-09-01 19:45] VITALS: BP 153/98; PULSE 107; RESP 18; TEMP 36.9; O2SAT 97; BMI 73.2
[2021-09-01 20:02] LABS: Apearance,Urine Clear (Clear); Color,Urine Dark Yellow (Yellow)
--- NOTE | 2021-09-01 20:02 | HMH.EDUTC ---
[facility] [place] Disposition Clinical Impression: Epididymitis UTI (urinary tract infection) Qualifiers: Urinary tract infection type: site unspecified Hematuria presence: with hematuria Qualified Code(s): N39.0 - Urinary tract infection, site not specified Disposition: Home, Self-Care Condition on Discharge: Good Instructions: Urinary Tract Infection, Epididymitis, DI for Epididymitis, Levofloxacin Additional Instructions: *Increase fluids. Water not Soda or Tea *Start antibiotic immediately and be sure to take as ordered for the FULL length of time although you should start to see improvement over the next 48 hours *Pyridium as needed Remember this medication will turn your urine [place]. This is normal but it will stain what ever it gets on *You should not use Pyridium for more than 48 hours. If so , follow up with your primary physician to review urine culture and ensure that antibiotic is adequate for infection *Be SURE to follow up anytime for new or worsening symptoms with your family doctor. AND in 48 hours for urine culture results with your family doctor, if you do not have a doctor then you may call back to the [facility] for urine culture results and further treatment. We do recommend that you choose and establish care with a Primary Care Physician. AND follow up with them in 10-14 days to repeat UA to ensure infection is resolved and blood no longer present *Be sure to let your PCP know that we sent urine cultures from the [facility] so they can follow up to ensure that you area the on the correct antibiotic Call your doctor office and make appointment for 48 hours (2 days from today) to follow up and get the results of your urine culture and further treatment Prescriptions: levoFLOXacin [Levaquin 500mg tab] 500 mg PO DAILY 10 Days #10 tab Transmission Status: Pending to [facility] Phenazopyridine HCl [Pyridium 200mg Tablet] 200 pow PO TID #6 tab Transmission Status: Pending to [facility] Referrals: Petty Frost PA [Primary Care Provider] - As needed Corey Smith MD [Staff Physician] - Time of Disposition: 20:27 Medical Decision Making - Ys Inquiry Pt receiving controlled substance: No Sy was queried for this patient: No Vital Signs: 09/01/21 19:45 Temperature 98.5 F Temperature Source Oral Pulse Rate [Right Brachial] 107 H Respiratory Rate 18 Blood Pressure [Right Arm] 153/98 H Blood Pressure Mean [Right Arm] 116 Blood Pressure Source [Right Arm] Automatic Cuff Blood Pressure Position [Right Arm] Sitting 02 Sat by Pulse Oximetry 97 Oxygen Delivery Method Room Air - Lab Data Lab results reviewed: Yes: I reviewed the patient's lab results. Lab Results 09/01/21 19:42: Urine Color Dark yellow, Urine Appearance Clear, Urine pH 6.0, Ur Specific [place] 1.025, Urine Protein 1+, Urine Glucose (UA) 1+, Urine Ketones 1+, Urine Blood Trace, Urine Nitrate Positive A, Urine Bilirubin Trace, Urine Urobilinogen >=8, Ur Leukocyte Esterase Negative Orders (Tests/Meds): ED MEDICATIONS Discontinued Medications Generic Name Dose Route Start Last Admin Trade Name Freq PRN Reason Stop Dose Admin Ceftriaxone Sodium 1 gm 09/01/21 20:11 09/01/21 20:19 Ceftriaxone 1gm Vial IM 09/01/21 20:12 1 gm ONCE ONE Administration Lidocaine HCl 0 ml 09/01/21 20:11 09/01/21 20:19 Lidocaine 1% 5ml Pf Vial IM 09/01/21 20:12 2 ml ONCE ONE Administration ORDERS Category Date Time Status Urine Culture Stat Micro 09/01/21 20:04 Ordered Medical Decision Narrative: recommended to repeat testicular US and patient declined States that he just wants some medication and he will follow up that he has an appointment in the morning and wants to go on home and not waited Patient educated on risks and still declined US and declined transfer to the ED Medication discussed with pharmacy will place patient on Levaquin 500mg daily for 10 days and have him follow up with PCP and Urology for gilberto
[2021-09-01 20:03] LABS: Bilirubin,Urine Trace (Negative); Blood, Urine Trace (Negative); Glucose,Urine (UA) 1+ (Negative); Ketones,Urine 1+ (Negative); Protein,Urine 1+ (Negative); Specific Gravity, Urine 1.025 (1.005-1.030); UTC Leukocyte Esterase,Urine Negative (Negative); UTC Nitrate,Urine Positive (Negative); Urobilinogen,Urine >=8 EU/dl (0.2)
[2021-09-01 20:20] VITALS: BP 153/98; PULSE 107; RESP 18; TEMP 36.9; O2SAT 97
== END 2021-09-01 20:30 | disposition home or self-care (01) ==
PROVIDERS: Emergency Provider Nurse Practitioner; PCP Physician Assistant
DX: N45.1 Epididymitis (principal)
CPT/HCPCS: 81003; 87086; 96372; 99202; 99212; 99213; G0463; J0696

== ENCOUNTER → 2021-09-13 16:57 | Outpatient (CLI) | payer BC, SELFPAY ==
--- NOTE | 2021-09-13 16:57 | MR_ITS ---
PROCEDURE INFORMATION: Exam: MR Left Lower Extremity Joint Without Contrast, Knee Exam date and time: 09/13/2021 4:57 PM Age: 46 years old Clinical indication: Pain; Knee; Left; Additional info: Left knee pain. Pain around patella. No injury or trauma. Knee insatability with popping. Prior x-ray 04-04-21 TECHNIQUE: Imaging protocol: MR of the Left lower extremity joint without contrast. Exam focused on the knee. COMPARISON: CR XR KNEE LT 4V 04/04/2021 8:50 AM FINDINGS: Bones and cartilage: Red marrow reconversion. No aggressive bone lesion. No acute fracture. Lateralization of the tibial tuberosity (TT-TG measures 2 cm). Tricompartmental osteophytosis. 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 Grade 2 chondromalacia in lateral and patellofemoral compartments. Joint spaces: Small to moderate size joint effusion with evidence of synovitis. Capsular edema. Medial meniscus: There is a large radial tear of the medial meniscus posterior horn/root. There is resultant extrusion of the medial meniscus body, which demonstrates free edge blunting. Lateral meniscus: Mild intrasubstance high within the body of the lateral meniscus without discrete tear. Anterior cruciate ligament: Unremarkable. No tear. Posterior cruciate ligament: Unremarkable. No tear. Medial capsule and supporting structures: There is edema within and surrounding the distal fibers of the medial collateral ligament (MCL). No ligament tear/discontinuity. This may be a chronic repetitive stress type sprain injury given the advanced degenerative changes of the medial compartment. Alternatively, this could be acute if there has been a recent injury. Lateral capsule and supporting structures: Unremarkable. No tear. Extensor mechanism of knee: Unremarkable. No tear. Muscles: Unremarkable. Soft tissues: Nonspecific subcutaneous edema anteriorly, without fluid collection. Vasculature: Varicose veins. IMPRESSION: 1. Radial tear of the medial meniscus posterior horn/root with associated extrusion of the meniscal body. 2. Cartilage denudation of the medial tibiofemoral compartment. 3. Edema within and surrounding the distal fibers of the medial collateral ligament may be a chronic repetitive stress injury, or could be an acute sprain if there has been a recent injury. 4. Small to moderate joint effusion with synovitis.
== END ==
PROVIDERS: PCP Physician Assistant; Visit Provider Orthopaedic Surgery
DX: M25.562 Pain in left knee (principal)
CPT/HCPCS: 73721

== ENCOUNTER → 2021-09-18 14:22 | Outpatient (CLI) | payer BC, SELFPAY ==
[2021-09-18 15:03] LABS: Basophils # 0.1 K/mm3 (0-0.2); Basophils % 0.9 % (0.1-2.0); Eosinophils # 0.2 K/mm3 (0.0-0.4); Eosinophils % 3.5 % (0.1-12.0); Hematocrit 43.3 % (42.0-52.0); Hemoglobin 13.8 g/dL (14.1-18.0); Lymphocytes # 1.3 K/mm3 (0.7-4.5); Lymphocytes % 19.7 % (10-50); Mean Corpuscular HGB Conc 31.8 g/dL (31.8-35.4); Mean Corpuscular Hemoglobin 30.7 pg (27.0-31.2); Mean Corpuscular Volume 96.4 fl (80-94); Mean Platelet Volume 8.9 fl (7.4-10.4); Monocytes # 0.4 K/mm3 (0.1-1.0); Monocytes % 5.9 % (1.7-9.3); Neutrophils # 4.6 K/mm3 (1.8-7.8); Neutrophils % 69.9 % (37.0-80.0); Platelet Count 240 K/mm3 (142-424); Red Blood Count 4.49 M/mm3 (4.60-6.20); Red Cell Distribution Width 15.5 % (11.5-17.5); White Blood Count 6.5 K/mm3 (4.8-10.8)
[2021-09-18 15:08] LABS: Ammonia 11 umol/L (9-30)
[2021-09-18 15:10] LABS: Prothrombin Time 14.4 seconds (10.1-12.5)
[2021-09-18 18:12] LABS: Alanine Aminotransferase 29 U/L (12-78); Albumin Level 4.6 g/dl (3.5-5.0); Albumin/Globulin Ratio 1.3 (1.1-1.8); Alkaline Phosphatase 62 U/L (38-126); Anion Gap 17.6 mEq/L (5-15); Aspartate Amino Transferase 43 U/L (17-59); Bilirubin,Total 0.9 mg/dl (0.2-1.3); Blood Urea Nitrogen 12 mg/dl (9-20); Calcium 9.6 mg/dl (8.4-10.2); Carbon Dioxide 30 mmol/L (22.0-30.0); Chloride 94 mmol/L (98-107); Estimated Glomerular Filt Rate 181 ml/min (>60); GFR (African American) 219 ML/MIN (>60); Globulin 3.5 g/dL (1.3-3.2); Glucose 135 mg/dl (74-100); Potassium 4.6 mmoL/L (3.5-5.1); Sodium 137 mmol/L (136-145); Total Protein,Serum 8.1 g/dl (6.3-8.2)
[2021-09-20 10:13] LABS: AFP, Tumor Marker 2.4 ng/mL (0.0-6.9)
[2021-09-20 11:13] LABS: Hepatitis C Antibody <0.1 s/co ratio (0.0-0.9)
[2021-09-20 16:44] LABS: Actin (Smooth Muscle) Antibody 12 Units (0-19); Mitochondrial (M2) Antibody <20.0 Units (0.0-20.0)
[2021-09-23 16:12] LABS: Alpha-1-Antitrypsin 189 mg/dL (101-187)
[2021-09-25 09:14] LABS: Hepatitis B Surface Antigen Negative (Negative)
== END ==
PROVIDERS: Visit Provider Internal Medicine Gastroenterology
DX: K70.30 Alcoholic cirrhosis of liver without ascites (principal); K59.00 Constipation, unspecified
CPT/HCPCS: 36415; 80053; 82103; 82104; 82105; 82140; 85025; 85610; 86255; 86256; 86706; 87340; 87380

== ENCOUNTER → 2022-01-15 10:54 | Outpatient (CLI) | payer BC, SELFPAY ==
[2022-01-15 11:23] LABS: Basophils % 0.6 % (0.1-2.0); Eosinophils # 0.2 K/mm3 (0.0-0.4); Eosinophils % 2.6 % (0.1-12.0); Hematocrit 43.4 % (42.0-52.0); Hemoglobin 13.2 g/dL (14.1-18.0); Lymphocytes % 14.4 % (10-50); Mean Corpuscular HGB Conc 30.4 g/dL (31.8-35.4); Mean Corpuscular Hemoglobin 27.8 pg (27.0-31.2); Mean Corpuscular Volume 91.4 fl (80-94); Mean Platelet Volume 8.5 fl (7.4-10.4); Monocytes # 0.4 K/mm3 (0.1-1.0); Monocytes % 5.5 % (1.7-9.3); Neutrophils # 5.3 K/mm3 (1.8-7.8); Neutrophils % 76.9 % (37.0-80.0); Platelet Count 176 K/mm3 (142-424); Red Blood Count 4.75 M/mm3 (4.60-6.20); Red Cell Distribution Width 15.3 % (11.5-17.5)
[2022-01-15 11:29] LABS: Ammonia < 9 umol/L (9-30)
[2022-01-15 11:58] LABS: INR 1.38 (0.9-1.1); Prothrombin Time 15.2 seconds (10.1-12.5)
[2022-01-15 12:48] LABS: Chloride 98 mmol/L (98-107); Potassium 4.2 mmoL/L (3.5-5.1); Sodium 137 mmol/L (136-145)
[2022-01-15 12:49] LABS: Bilirubin,Direct 0.3 mg/dl (0.0-0.4); Bilirubin,Indirect 0.8 mg/dL (0.0-0.9); Chol/HDL Ratio 3.2 (1-3.5); Cholesterol 126 mg/dl (140-200); HDL Cholesterol 39 mg/dl (40-60); Triglycerides 109 mg/dl (30-150); VLDL Cholesterol 22 mg/dL (0-40)
[2022-01-15 12:50] LABS: Alanine Aminotransferase 26 U/L (12-78); Aspartate Amino Transferase 30 U/L (17-59); Blood Urea Nitrogen 11 mg/dl (9-20); Estimated Glomerular Filt Rate 146 ml/min (>60); GFR (African American) 177 ML/MIN (>60)
[2022-01-15 12:51] LABS: Albumin Level 4.3 g/dl (3.5-5.0); Albumin/Globulin Ratio 1.3 (1.1-1.8); Alkaline Phosphatase 74 U/L (38-126); Anion Gap 13.2 mEq/L (5-15); Calcium 9.5 mg/dl (8.4-10.2); Carbon Dioxide 30 mmol/L (22.0-30.0); Globulin 3.4 g/dL (1.3-3.2); Glucose 136 mg/dl (74-100); Total Protein,Serum 7.7 g/dl (6.3-8.2)
[2022-01-15 13:40] LABS: Direct LDL Cholesterol 66.84 mg/dL (100-129)
[2022-01-16 10:28] LABS: AFP, Tumor Marker 1.8 ng/mL (0.0-6.9)
[2022-01-23 23:07] LABS: 1,25 Dihydroxy Vitamin D 41 pg/mL (.); 1,25-Dihydroxy, Vitamin D-2 11 pg/mL (.); 1,25-Dihydroxy, Vitamin D-3 30 pg/mL (.)
== END ==
PROVIDERS: PCP Internal Medicine Gastroenterology; Visit Provider Nurse Practitioner Family
DX: I50.32 Chronic diastolic (congestive) heart failure (principal); I10 Essential (primary) hypertension; E78.5 Hyperlipidemia, unspecified
CPT/HCPCS: 36415; 80053; 80061; 82105; 82140; 82248; 82652; 85025; 85610

== ENCOUNTER → 2022-01-27 14:48 | Outpatient (CLI) | payer BC, SELFPAY ==
--- NOTE | 2022-01-27 14:55 | CT_ITS ---
FINAL REPORT CLINICAL HISTORY: memory loss w confusion x mos. NKT FINDINGS: Axial images of the head were obtained without contrast. Coronal reformatted images were also obtained.This study was performed with techniques to keep radiation doses as low as reasonably achievable (ALARA). Individualized dose reduction techniques using automated exposure control or adjustment of mA and/or kV according to the patient's size were employed. There is no evidence of intracranial hemorrhage or mass. The ventricular size is within normal limits. There is no evidence of shift of the midline structures. No abnormal extra axial fluid collection is identified. No skull abnormality is seen on the bone window images. There is a retention cyst or polyp in the right maxillary sinus. IMPRESSION: No acute intracranial abnormality. Reviewed, Interpreted and Dictated by Rohith Fuentes III, MD Transcribed by Niyah Sandra Authenticated and [facility]
== END ==
PROVIDERS: PCP Nurse Practitioner Family; Visit Provider Nurse Practitioner Family
DX: G31.84 Mild cognitive impairment of uncertain or unknown etiology (principal)
CPT/HCPCS: 70450

== ENCOUNTER → 2022-04-04 | Outpatient (CLI) | payer BC, SELFPAY | PROVIDERS: Visit Provider Podiatrist | DX: L97.529 Non-pressure chronic ulcer of other part of left foot with unspecified severity (principal); B95.7 Other staphylococcus as the cause of diseases classified elsewhere | CPT/HCPCS: 87070; 87077; 87186; 87205 ==

== ENCOUNTER → 2022-04-23 10:40 | Outpatient (CLI) | payer BC, SELFPAY ==
--- NOTE | 2022-04-23 10:46 | XR_ITS ---
FINAL REPORT CLINICAL HISTORY: foot pain COMPARISON: October 24, 2020 FINDINGS: RIGHT FOOT 3 views of the right foot were obtained. There is no acute fracture or dislocation. There is mild degenerative change of the midfoot and 1st MTP joint. Calcaneal spurs are present. IMPRESSION: No acute bony abnormality. Reviewed, Interpreted and Dictated by Rohith Fuentes III, MD Transcribed by Juan Huynh Authenticated and [facility]
--- NOTE | 2022-04-23 10:46 | XR_ITS ---
FINAL REPORT CLINICAL HISTORY: ulcer of foot COMPARISON: October 24, 2020 FINDINGS: LEFT FOOT Three views of the left foot demonstrate no acute fracture or dislocation. Calcaneal spurs are present. There is mild degenerative change of the midfoot and 1st MTP joint. There is a foreign body versus bandage measuring 14 mm along the plantar lateral midfoot. A chronic calcification is seen superior to the distal talus. There are no bony erosions. IMPRESSION: No acute bony abnormality. 14 mm foreign body versus bandage along the plantar lateral midfoot. Reviewed, Interpreted and Dictated by Rohith Fuentes III, MD Transcribed by Juan Huynh Authenticated and [facility]
== END ==
PROVIDERS: PCP Nurse Practitioner Family; Visit Provider Nurse Practitioner Family
DX: M79.671 Pain in right foot (principal); L97.529 Non-pressure chronic ulcer of other part of left foot with unspecified severity
CPT/HCPCS: 73630

== ENCOUNTER → 2022-05-07 10:35 | Outpatient (CLI) | payer BC, SELFPAY ==
[2022-05-07 11:11] LABS: Basophils % 0.5 % (0.1-2.0); Eosinophils # 0.1 K/mm3 (0.0-0.4); Eosinophils % 0.8 % (0.1-12.0); Hematocrit 43.4 % (42.0-52.0); Hemoglobin 13.6 g/dL (14.1-18.0); Lymphocytes # 1.3 K/mm3 (0.7-4.5); Lymphocytes % 19.6 % (10-50); Mean Corpuscular HGB Conc 31.4 g/dL (31.8-35.4); Mean Corpuscular Hemoglobin 28.6 pg (27.0-31.2); Mean Corpuscular Volume 90.9 fl (80-94); Mean Platelet Volume 7.8 fl (7.4-10.4); Monocytes # 0.3 K/mm3 (0.1-1.0); Monocytes % 5.2 % (1.7-9.3); Neutrophils # 4.8 K/mm3 (1.8-7.8); Neutrophils % 73.9 % (37.0-80.0); Platelet Count 169 K/mm3 (142-424); Red Blood Count 4.78 M/mm3 (4.60-6.20); Red Cell Distribution Width 14.5 % (11.5-17.5); White Blood Count 6.4 K/mm3 (4.8-10.8)
[2022-05-07 11:39] LABS: Erythrocyte Sedimentation Rate 21 mm/hr (0-15)
[2022-05-07 12:02] LABS: Hemoglobin A1C 6.7 % (4.0-6.0)
[2022-05-07 18:28] LABS: Chloride 96 mmol/L (98-107); Potassium 4.5 mmoL/L (3.5-5.1); Sodium 136 mmol/L (136-145)
[2022-05-07 18:30] LABS: Blood Urea Nitrogen 13 mg/dl (9-20); Estimated Glomerular Filt Rate 146 ml/min (>60); GFR (African American) 177 ML/MIN (>60)
[2022-05-07 18:31] LABS: Alanine Aminotransferase 25 U/L (12-78); Albumin Level 4.1 g/dl (3.5-5.0); Albumin/Globulin Ratio 1.5 (1.1-1.8); Alkaline Phosphatase 63 U/L (38-126); Anion Gap 15.5 mEq/L (5-15); Aspartate Amino Transferase 25 U/L (17-59); Bilirubin,Total 0.6 mg/dl (0.2-1.3); Carbon Dioxide 29 mmol/L (22.0-30.0); Globulin 2.8 g/dL (1.3-3.2); Glucose 88 mg/dl (74-100); Total Protein,Serum 6.9 g/dl (6.3-8.2)
== END ==
PROVIDERS: PCP Nurse Practitioner Family; Visit Provider Nurse Practitioner Family
DX: E08.621 Diabetes mellitus due to underlying condition with foot ulcer (principal); L97.529 Non-pressure chronic ulcer of other part of left foot with unspecified severity; L97.521 Non-pressure chronic ulcer of other part of left foot limited to breakdown of skin
CPT/HCPCS: 36415; 80053; 83036; 85025; 85651; 86140

== ENCOUNTER → 2022-05-09 17:07 | Outpatient (CLI) | payer BC, SELFPAY ==
[2022-05-09 16:27] LABS: Amphetamine/Metha Screen,Urine Negative ng/ml (<1000)
[2022-05-09 16:28] LABS: Barbiturates Screen,Urine Negative ng/ml (<200); Benzodiazepines Screen,Urine Negative ng/ml (<200)
[2022-05-09 16:32] LABS: Cannabinoid Screen,Urine Positive ng/ml (<50)
[2022-05-09 16:33] LABS: Cocaine Screen,Urine Negative ng/ml (<300)
[2022-05-09 16:34] LABS: Methadone Screen,Urine Negative ng/ml (<300); Opiate Screen,Urine Positive ng/ml (<300)
[2022-05-09 16:35] LABS: Phencyclidine Screen,Urine Negative ng/ml (<25)
== END ==
PROVIDERS: PCP Nurse Practitioner Family; Visit Provider Nurse Practitioner Family
DX: Z79.899 Other long term (current) drug therapy (principal)
CPT/HCPCS: 80305

== ENCOUNTER → 2022-05-16 11:02 | Outpatient (CLI) | payer BC, SELFPAY ==
--- NOTE | 2022-05-16 11:04 | US_ITS ---
FINAL REPORT CLINICAL HISTORY: non-healing wound of left foot, DM, HLD, HTN FINDINGS: COMPLETE ANKLE/BRACHIAL INDICES BILATERAL Complete ankle brachial indices were obtained. The right GABBI is 1.2. The left GABBI is 1.2. IMPRESSION: ABIs are within normal limits bilaterally. Reviewed, Interpreted and Dictated by Rohith Fuentes III, MD Transcribed by Niyah Sandra Authenticated and [facility]
== END ==
PROVIDERS: PCP Nurse Practitioner Family; Visit Provider Nurse Practitioner Family
DX: R09.89 Other specified symptoms and signs involving the circulatory and respiratory systems (principal); L97.529 Non-pressure chronic ulcer of other part of left foot with unspecified severity; R23.8 Other skin changes
CPT/HCPCS: 93923

== ENCOUNTER → 2022-06-18 16:20 | Outpatient (CLI) | payer BC, SELFPAY | PROVIDERS: Visit Provider Nurse Practitioner Family | DX: M79.672 Pain in left foot (principal); Z51.89 Encounter for other specified aftercare; B95.7 Other staphylococcus as the cause of diseases classified elsewhere | CPT/HCPCS: 87070; 87077; 87186; 87205 ==

== ENCOUNTER → 2022-07-10 11:18 | Outpatient (CLI) | payer BC, SELFPAY | PROVIDERS: PCP Nurse Practitioner Family; Visit Provider Nurse Practitioner | DX: R00.2 Palpitations (principal) | CPT/HCPCS: 93270 ==

== ENCOUNTER → 2022-09-11 10:41 | Outpatient (CLI) | payer BC, SELFPAY ==
--- NOTE | 2022-09-11 10:46 | XR_ITS ---
FINAL REPORT CLINICAL HISTORY: wound of left 2nd toe COMPARISON: left foot 04/23/2022 FINDINGS: Three views of the left toes were obtained. There is no fracture or dislocation. No bony destruction. There is soft tissue edema of the 2nd toe. There is a punctate radiodensity along the dorsum of the nail which is likely artifact on the nail. IMPRESSION: No acute osseous abnormality. Soft tissue edema of the 2nd toe. Reviewed, Interpreted and Dictated by Bessy Fregoso MD Transcribed by Iveth Webster Authenticated and [facility]
--- NOTE | 2022-09-11 10:46 | XR_ITS ---
FINAL REPORT CLINICAL HISTORY: wound of left 2nd toe COMPARISON: 04/23/2022 FINDINGS: Three views of the left foot were obtained. There is no acute osseous abnormality. There is degenerative disease at the midfoot which is stable. 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 There is soft tissue edema of the dorsum of the foot extending into the 2nd toe. IMPRESSION: No acute osseous abnormality of the left foot. Soft tissue edema as above. Reviewed, Interpreted and Dictated by Bessy Fregoso MD Transcribed by Iveth Webster Authenticated and [facility]
== END ==
PROVIDERS: PCP Nurse Practitioner Family; Visit Provider Nurse Practitioner Family
DX: S91.105A Unspecified open wound of left lesser toe(s) without damage to nail, initial encounter (principal)
CPT/HCPCS: 73630; 73660

== ENCOUNTER → 2022-10-22 17:01 | Outpatient (CLI) | payer BC, SELFPAY | PROVIDERS: Visit Provider Nurse Practitioner Family | DX: R23.4 Changes in skin texture (principal); L97.519 Non-pressure chronic ulcer of other part of right foot with unspecified severity; B95.7 Other staphylococcus as the cause of diseases classified elsewhere | CPT/HCPCS: 87070; 87077; 87186; 87205 ==

== ENCOUNTER → 2022-12-12 10:21 | Outpatient (CLI) | payer BC, SELFPAY | PROVIDERS: PCP Nurse Practitioner Family; Visit Provider Nurse Practitioner Family | DX: N39.0 Urinary tract infection, site not specified (principal) | CPT/HCPCS: 82043; 87086 ==

== ENCOUNTER → 2023-04-20 07:53 | Outpatient (CLI) | payer MEDICARE, BC, SELFPAY ==
--- OUTSIDE RECORDS SUMMARY | 2023-04-20 07:56 | XMS_ITS | Clinical Summary ---
Author Name Unknown Address [address] [place] [address] Phone Organization [facility] , [facility] Address [address] [place] [address] Phone Care Team Providers Care Gis Analyst Developer Name Role Phone Allen RUSH, Emanuel Maurice Unavailable [phone] TANG RUSH, TRELL Unavailable [phone] ZI SUE DPM Unavailable [phone] Petty Frost PA-C Primary Care Provider [phone] Reason for Visit and Chief Complaint Epidural Steroid Injection Problems Includes: Problems addressed during this encounter and other active Problems All Visits Onset Date Resolved Date Provider Condition S tatus Lower Back Pain 04/22/2019 Emanuel Villa MD Act margarito Plan of Treatment No Plan of Treatment Recorded Assessments Includes: Assessments from this encounter No Assessments Recorded Medical Equipment - Implanted Devices Includes: Current Devices No Medical Equipment Recorded Medications Includes: Medications discussed during this encounter and other current Medications Current Medications (continue as prescribed) Xarelto 20 MG Oral Tablet 11/16/2021 Provider: Diagnosis: Metoclopramide HCl 10 MG Oral Tablet 04/21/2019 Prov ider: Chintan Aguayo MD
--- OUTSIDE RECORDS SUMMARY | 2023-04-20 07:56 | XMS_ITS | Clinical Summary ---
Author Name Unknown Address [address] [place] [address] Phone Organization [facility] , [facility] Address [address] [place] [address] Phone Care Team Providers Care [place] Name Role Phone Allen RUSH, Emanuel Maurice Unavailable [phone] TANG RUSH, TRELL Unavailable [phone] ZI SUE DPM Unavailable [phone] Petty Frost PA-C Primary Care Provider +[phone] [...]
--- OUTSIDE RECORDS SUMMARY | 2023-04-20 07:56 | XMS_ITS | Clinical Summary ---
Author Name Unknown Address [address] [place] [address] Phone Organization [facility] Address [address] [place] [address] Phone Care Team Providers Care Cost Control Supervisor Name Role Phone Allen RUSH, Emanuel Maurice Unavailable [phone] TANG RUSH, TRELL Unavailable [phone] ZI SUE DPM Unavailable [phone] Petty Frost PA-C Primary Care Provider [phone] Reason for Visit and Chief Complaint referred by self - The Chief Complaint is: Low back pain Problems Includes: Problems addressed during this encounter and other active Problems Current Visit Onset Date Resolved Date Provider Conditio n Status Lower Back Pain 04/22/2019 Emanuel Villa MD Act margarito Past Visits Onset Date Resolved Date Provider Condition Status Bone Pain in the Heel 06/27/2014 Randy Booth DPM Active Plan of Treatment patient was seen by myself and Dr. Allen Foote PA-C. Patient will follow up 4 weeks after he tries interspinous process injection at L3-L4 no surgery would be needed for him - Last Documented On 11/02/2022 1:37PM ; [facility] Instructions to patient Instructions for patient See PCP for BP and Weight Last Documented On 2:52PM ; [facility], [facility] Intervention and counseling on cessation of tobacco use
--- OUTSIDE RECORDS SUMMARY | 2023-04-20 07:56 | XMS_ITS | Clinical Summary ---
Author Name Unknown Address [address] [place] [address] Phone Organization [facility] , [facility] Address [address] [place] [address] Phone Care Team Providers Care Can Pusher Name Role Phone Allen RUSH, Emanuel Maurice Unavailable [phone] TANG RUSH, TRELL Unavailable [phone] ZI SUE DPM Unavailable [phone] Petty Frost PA-C Primary Care Provider [phone] [...] Randy Booth DPM Active Plan of Treatment - Weight loss diet - Last Documented On 11/09/2019 12:13PM ; [facility] Patient was seen by myself Chintan Foote PA-C. Patient will follow up right now we will try to see we can find a facility to get an MRI for him as he is significantly overweight and does need to work on weight loss even if there was any sort of surgical procedure necessary for him which I do not believe there will be if we can get a facility that will take him to do an MRI he needs to work on weight loss and once he gets under 500 pounds which he says he is a little bit over 500 could potentially do the MRI. We will set him up to see bariatrics also for a consult. - Last Documented On 11/09/19
--- OUTSIDE RECORDS SUMMARY | 2023-04-20 07:56 | XMS_ITS ---
Care Plan - [facility], [facility] Created on: April 20, 2023 Gonzalo Russell : 1975 Sex: Male Author Name Unknown Address [address] [place] [address] [place] [address] Phone Organization [facility] , [facility] Address [address] [place] [address] Phone Care Team Providers Care Account Installation Specialist Name Role Phone Allen RUSH, Emanuel Maurice Unavailable [phone] TANG RUSH, TRELL Unavailable [phone] ZI SUE DPM Unavailable [phone] Petty Frost PA-C Primary Care Provider [phone]
--- OUTSIDE RECORDS SUMMARY | 2023-04-20 07:56 | XMS_ITS | Clinical Summary ---
Author Name Unknown Address [address] [place] [address] Phone Organization [facility] , [facility] Address [address] [place] [place] [address] Phone Care Team Providers Care Fitness Specialist Name Role Phone Allen RUSH, Emanuel Maurice Unavailable [phone] TANG RUSH, TRELL Unavailable [phone] ZI SUE DPM Unavailable [phone] Petty Frost PA-C Primary Care Provider +[phone] [...]
--- OUTSIDE RECORDS SUMMARY | 2023-04-20 07:56 | XMS_ITS ---
Author Name Unknown Address [address] [place] [address] Phone Organization [facility] Address [address] [place] [place] [address] Phone Care Team Providers Care Dinkey Skinner Name Role Phone Allen RUSH, Emanuel Maurice Unavailable [phone] TANG RUSH, TRELL Unavailable [phone] ZI SUE DPM Unavailable [phone] Petty Frost PA-C Primary Care Provider [phone] Problems Includes: Active, inactive, and resolved Problems All Visits Onset Date Resolved Date Provider Condition S tatus Lower Back Pain 04/22/2019 Emanuel Villa MD Act margarito Plan of Treatment Findings Encounter Date Ordered weight loss diet Physician Specified smitha h Emanuel Villa MD 04/22/2019 Instructions to patient Instructions for patient See PCP for BP and Weight Last Documented On 2 2:52PM ; [facility] Intervention and counseling on cessation of tobacco use Last Documented On 2 3:18PM ; [facility] Lose weight Last Documented On 2 2:52PM ; [facility]
[2023-04-20 08:12] LABS: Basophils % 0.4 % (0.1-2.0); Eosinophils # 0.1 K/mm3 (0.0-0.4); Eosinophils % 1.9 % (0.1-12.0); Hematocrit 48.9 % (42.0-52.0); Hemoglobin 15.1 g/dL (14.1-18.0); Lymphocytes # 1.2 K/mm3 (0.7-4.5); Lymphocytes % 17.9 % (10-50); Mean Corpuscular Hemoglobin 25.6 pg (27.0-31.2); Mean Corpuscular Volume 82.6 fl (80-94); Mean Platelet Volume 8.4 fl (7.4-10.4); Monocytes # 0.3 K/mm3 (0.1-1.0); Monocytes % 4.5 % (1.7-9.3); Neutrophils # 5.1 K/mm3 (1.8-7.8); Neutrophils % 75.4 % (37.0-80.0); Platelet Count 161 K/mm3 (142-424); Red Blood Count 5.92 M/mm3 (4.60-6.20); Red Cell Distribution Width 16.5 % (11.5-17.5); White Blood Count 6.8 K/mm3 (4.8-10.8)
[2023-04-20 09:07] LABS: Hemoglobin A1C 5.8 % (4.0-6.0)
[2023-04-20 10:08] LABS: Alanine Aminotransferase 30 U/L (12-78); Albumin Level 4.4 g/dl (3.5-5.0); Alkaline Phosphatase 59 U/L (38-126); Anion Gap 14.3 mEq/L (5-15); Aspartate Amino Transferase 32 U/L (17-59); Bilirubin,Direct 0.3 mg/dl (0.0-0.4); Bilirubin,Indirect 0.6 mg/dL (0.0-0.9); Bilirubin,Total 0.9 mg/dl (0.2-1.3); Bilirubin,Unconjugated 0.6 mg/dL (0.0-1.1); Blood Urea Nitrogen 10 mg/dl (9-20); Calcium 9.4 mg/dl (8.4-10.2); Carbon Dioxide 33 mmol/L (22.0-30.0); Chloride 98 mmol/L (98-107); Chol/HDL Ratio 3.2 (1-3.5); Cholesterol 115 mg/dl (140-200); Estimated Glomerular Filt Rate 146 ml/min (>60); GFR (African American) 176 ML/MIN (>60); Glucose 89 mg/dl (74-100); HDL Cholesterol 36 mg/dl (40-60); Potassium 4.3 mmoL/L (3.5-5.1); Sodium 141 mmol/L (136-145); Triglycerides 115 mg/dl (30-150); VLDL Cholesterol 23 mg/dL (0-40)
[2023-04-20 10:19] LABS: Direct LDL Cholesterol 61.55 mg/dL (100-129)
[2023-04-20 10:37] LABS: Thyroid Stimulating Hormone 0.82 uIU/mL (0.465-4.68)
[2023-04-20 10:51] LABS: Free T4 (Free Thyroxine) 1.47 ng/dl (0.78-2.19)
== END ==
PROVIDERS: PCP Nurse Practitioner Family; Visit Provider Physician Assistant
DX: R06.00 Dyspnea, unspecified (principal); I48.0 Paroxysmal atrial fibrillation; I50.30 Unspecified diastolic (congestive) heart failure; E11.9 Type 2 diabetes mellitus without complications; E66.9 Obesity, unspecified; Z68.43 Body mass index [BMI] 50.0-59.9, adult; Z86.79 Personal history of other diseases of the circulatory system; Z90.3 Acquired absence of stomach [part of]; Z98.84 Bariatric surgery status
CPT/HCPCS: 36415; 80048; 80061; 80076; 83036; 84439; 84443; 85025

== ENCOUNTER → 2023-05-04 11:59 | Outpatient (CLI) | payer MEDICARE, BC, SELFPAY ==
[2023-05-04 12:43] LABS: Basophils % 0.3 % (0.1-2.0); Eosinophils # 0.1 K/mm3 (0.0-0.4); Hematocrit 44.8 % (42.0-52.0); Hemoglobin 15.3 g/dL (14.1-18.0); Lymphocytes # 1.1 K/mm3 (0.7-4.5); Lymphocytes % 12.9 % (10-50); Mean Corpuscular HGB Conc 34.1 g/dL (31.8-35.4); Mean Corpuscular Hemoglobin 28.3 pg (27.0-31.2); Mean Corpuscular Volume 82.8 fl (80-94); Mean Platelet Volume 8.5 fl (7.4-10.4); Monocytes # 0.5 K/mm3 (0.1-1.0); Neutrophils # 6.9 K/mm3 (1.8-7.8); Neutrophils % 79.8 % (37.0-80.0); Platelet Count 138 K/mm3 (142-424); Red Blood Count 5.41 M/mm3 (4.60-6.20); Red Cell Distribution Width 16.7 % (11.5-17.5); White Blood Count 8.7 K/mm3 (4.8-10.8)
[2023-05-04 12:46] LABS: Ammonia 18 umol/L (9-30)
[2023-05-04 12:49] LABS: INR 1.09 (0.9-1.1); Prothrombin Time 11.7 seconds (10.1-12.5)
[2023-05-04 13:05] LABS: Alanine Aminotransferase 33 U/L (12-78); Albumin Level 4.4 g/dl (3.5-5.0); Albumin/Globulin Ratio 1.4 (1.1-1.8); Alkaline Phosphatase 54 U/L (38-126); Anion Gap 14.6 mEq/L (5-15); Aspartate Amino Transferase 33 U/L (17-59); Bilirubin,Total 1.1 mg/dl (0.2-1.3); Blood Urea Nitrogen 13 mg/dl (9-20); Calcium 9.7 mg/dl (8.4-10.2); Carbon Dioxide 30 mmol/L (22.0-30.0); Chloride 99 mmol/L (98-107); Estimated Glomerular Filt Rate 122 ml/min (>60); GFR (African American) 148 ML/MIN (>60); Globulin 3.2 g/dL (1.3-3.2); Glucose 105 mg/dl (74-100); Potassium 4.6 mmoL/L (3.5-5.1); Sodium 139 mmol/L (136-145); Total Protein,Serum 7.6 g/dl (6.3-8.2)
[2023-05-04 15:17] LABS: Ferritin 20.2 ng/ml (17.9-464)
[2023-05-05 13:35] LABS: AFP, Tumor Marker 1.9 ng/mL (0.0-6.9)
== END ==
PROVIDERS: PCP Nurse Practitioner Family; Visit Provider Internal Medicine Gastroenterology
DX: K75.81 Nonalcoholic steatohepatitis (NASH) (principal); K74.69 Other cirrhosis of liver; K59.00 Constipation, unspecified
CPT/HCPCS: 36415; 80053; 82105; 82140; 82728; 85025; 85610

== ENCOUNTER → 2023-05-12 15:33 | Outpatient (CLI) | payer MEDICARE, BC, SELFPAY | PROVIDERS: PCP Nurse Practitioner Family; Visit Provider Physician Assistant | DX: I48.91 Unspecified atrial fibrillation (principal) | CPT/HCPCS: 93270 ==

== ENCOUNTER 2023-05-30 09:16 | Emergency (ER) | payer MEDICARE, BC, SELFPAY ==
[2023-05-30 09:55] VITALS: BP 121/63; PULSE 45; RESP 22; TEMP 36.7; O2SAT 97; BMI 59.3
--- NOTE | 2023-05-30 09:56 | EXP.UTC ---
Discharge Plan Disposition Patient Disposition: Home, Self-Care Condition: Good Prescriptions Prescriptions: New promethazine 25 mg tablet 25 mg PO TID PRN (Reason: nausea and vomiting) Qty: 30 0RF No Action Novolin 70/30 U-100 Insulin 100 unit/mL (70-30) suspension 60 unit SQ TID 30 Days Qty: 54 2RF lidocaine HCl 10 mg/mL (1 %) solution 10 mg IJ ONCE Qty: 1 0RF lidocaine HCl 10 mg/mL (1 %) solution 10 mg IJ ONCE Qty: 1 0RF triamcinolone acetonide [Kenalog] 40 mg/mL suspension 40 mg IJ ONCE Qty: 1 0RF triamcinolone acetonide [Kenalog] 40 mg/mL suspension 40 mg IJ ONCE Qty: 1 0RF mupirocin 2 % ointment 1 applic topical BID Qty: 15 0RF lorazepam 1 mg tablet 1 mg PO BID Qty: 60 2RF gabapentin 600 mg tablet 600 mg PO Q8H 30 Days Qty: 90 2RF Xarelto 20 mg tablet See Rx Instructions .ROUTE .COMPLEX Qty: 90 1RF Dose Instruction: TAKE 1 TABLET BY MOUTH EVERY DAY FOR A FIB Rx Instructions: TAKE 1 TABLET BY MOUTH EVERY DAY FOR A FIB furosemide 40 mg tablet See Rx Instructions .ROUTE .COMPLEX Qty: 60 5RF Dose Instruction: TAKE 1 TABLET TWICE A DAY FOR FLUID Rx Instructions: TAKE 1 TABLET TWICE A DAY FOR FLUID spironolactone 50 mg tablet 50 mg PO DAILY Qty: 30 5RF Ozempic 0.25 mg or 0.5 mg (2 mg/3 mL) pen injector 0.5 mg SQ WEEKLY Qty: 3 4RF metformin 1,000 mg tablet 1,000 mg PO BID Qty: 180 1RF omeprazole 40 mg capsule,delayed release(DR/EC) See Rx Instructions .ROUTE .COMPLEX Qty: 180 3RF Dose Instruction: TAKE 1 CAPSULE BY MOUTH TWICE A DAY FOR GERD Rx Instructions: TAKE 1 CAPSULE BY MOUTH TWICE A DAY FOR GERD trazodone 100 mg tablet See Rx Instructions .ROUTE .COMPLEX Qty: 90 3RF Dose Instruction: TAKE 1 TABLET BY MOUTH AT BEDTIME Rx Instructions: TAKE 1 TABLET BY MOUTH AT BEDTIME metoclopramide HCl 10 mg tablet See Rx Instructions .ROUTE .COMPLEX Qty: 360 3RF Dose Instruction: TAKE 1 TABLET BY MOUTH FOUR TIMES A DAY FOR ACID REFLUX Rx Instructions: TAKE 1 TABLET BY MOUTH FOUR TIMES A DAY FOR ACID REFLUX hydrocodone-acetaminophen 10-325 mg tablet 1 tab PO Q8H PRN (Reason: pain) Qty: 90 0RF atorvastatin 40 mg tablet See Rx Instructions .ROUTE .COMPLEX Qty: 90 1RF Dose Instruction: TAKE 1 TABLET BY MOUTH AT BEDTIME FOR CHOLESTEROL Rx Instructions: TAKE 1 TABLET BY MOUTH AT BEDTIME FOR CHOLESTEROL Vraylar 3 mg capsule 3 mg PO DAILY Qty: 30 2RF bisoprolol fumarate 5 mg tablet See Rx Instructions .ROUTE .COMPLEX Qty: 60 4RF Dose Instruction: TAKE 1 TABLET BY MOUTH TWICE A DAY FOR BLOOD PRESSURE Rx Instructions: TAKE 1 TABLET BY MOUTH TWICE A DAY FOR BLOOD PRESSURE tamsulosin 0.4 mg capsule See Rx Instructions .ROUTE .COMPLEX Qty: 30 1RF Dose Instruction: TAKE 1 CAPSULE BY MOUTH ONCE DAILY Rx Instructions: TAKE 1 CAPSULE BY MOUTH ONCE DAILY venlafaxine 150 mg capsule,extended release 24hr See Rx Instructions .ROUTE .COMPLEX Qty: 90 3RF Dose Instruction: TAKE 1 CAPSULE BY MOUTH EVERY DAY Rx Instructions: TAKE 1 CAPSULE BY MOUTH EVERY DAY Referrals Follow up/Referrals: Malcolm Hayward APRN [Primary Care Provider] - See instructions Activity Restrictions/Add. Instructions Additional Instructions/Restrictions: Drink plenty of fluids. Take tylenol for pain or fever. Take the medications as directed. Follow up with your regular doctor. GO TO THE ER FOR ANY WORSENING SYMPTOMS Clinical Impressions Clinical Impression: Gastroenteritis Instructions Patient Instructions: Viral Gastroenteritis, DI for Viral Gastroenteritis -- Adult, Promethazine Discharge ED Provider: Sebastián Santana [facility] General Stated complaint: vomiting Time Seen by Provider: 05/30/23 09:56 History of Present Illness Provider Complaint: He states that he has had n/v/d since yesterday
[2023-05-30 10:16] LABS: UTC Influenza A Antigen Negative (Negative); UTC Influenza B Antigen Negative (Negative)
[2023-05-30 10:20] VITALS: BP 121/63; PULSE 45; RESP 22; TEMP 36.7; O2SAT 97
== END 2023-05-30 10:32 | disposition home or self-care (01) ==
PROVIDERS: Emergency Provider Nurse Practitioner Family; PCP Nurse Practitioner Family
DX: A08.4 Viral intestinal infection, unspecified (principal); R11.2 Nausea with vomiting, unspecified; J44.9 Chronic obstructive pulmonary disease, unspecified; I11.0 Hypertensive heart disease with heart failure; I50.9 Heart failure, unspecified; E11.9 Type 2 diabetes mellitus without complications; E66.01 Morbid (severe) obesity due to excess calories; Z68.44 Body mass index [BMI] 60.0-69.9, adult; Z79.4 Long term (current) use of insulin; Z87.891 Personal history of nicotine dependence
CPT/HCPCS: 87804; 96372; 99212; 99214; G0463

== ENCOUNTER 2023-07-15 08:32 | Outpatient (CLI) | payer MEDICARE, BC, SELFPAY ==
[2023-07-15 22:08] LABS: Amphetamine/Metha Screen,Urine Negative ng/ml (<1000)
[2023-07-15 22:09] LABS: Cocaine Screen,Urine Negative ng/ml (<300)
[2023-07-15 23:00] LABS: Creatinine,Urine Random 295 mg/dL (Not Estab.); Microalbumin/Creatinine Ratio 3.5
[2023-07-15 23:34] LABS: Barbiturates Screen,Urine Negative ng/ml (<200); Benzodiazepines Screen,Urine Negative ng/ml (<200); Cannabinoid Screen,Urine Positive ng/ml (<50); Methadone Screen,Urine Negative ng/ml (<300); Opiate Screen,Urine Positive ng/ml (<300); Phencyclidine Screen,Urine Negative ng/ml (<25)
== END 2023-07-15 23:59 ==
LOC: LAB.DROPOF 07-16 08:33
PROVIDERS: PCP Nurse Practitioner Family; Visit Provider Nurse Practitioner Family
DX: E11.9 Type 2 diabetes mellitus without complications (principal); Z79.899 Other long term (current) drug therapy; Z79.4 Long term (current) use of insulin
CPT/HCPCS: 80307; 82043; 82570

== ENCOUNTER 2023-07-30 18:01 | Emergency (ER) | payer MEDICARE, BC, SELFPAY ==
[2023-07-30 19:05] VITALS: BP 130/69; PULSE 82; RESP 18; TEMP 36.9; O2SAT 96; BMI 59.3
--- NOTE | 2023-07-30 19:18 | ED_ITS ---
Discharge Plan Disposition Patient Disposition: Home, Self-Care Condition: Good Prescriptions Prescriptions: New ciprofloxacin HCl [Cipro] 500 mg tablet 500 mg PO BID 10 Days Qty: 20 0RF No Action Novolin 70/30 U-100 Insulin 100 unit/mL (70-30) suspension 60 unit SQ TID 30 Days Qty: 54 2RF lidocaine HCl 10 mg/mL (1 %) solution 10 mg IJ ONCE Qty: 1 0RF lidocaine HCl 10 mg/mL (1 %) solution 10 mg IJ ONCE Qty: 1 0RF triamcinolone acetonide [Kenalog] 40 mg/mL suspension 40 mg IJ ONCE Qty: 1 0RF triamcinolone acetonide [Kenalog] 40 mg/mL suspension 40 mg IJ ONCE Qty: 1 0RF mupirocin 2 % ointment 1 applic topical BID Qty: 15 0RF lorazepam 1 mg tablet 1 mg PO BID Qty: 60 2RF bisoprolol fumarate 5 mg tablet 2.5 mg PO BID gabapentin 600 mg tablet 600 mg PO Q8H 30 Days Qty: 90 2RF furosemide 40 mg tablet See Rx Instructions .ROUTE .COMPLEX Qty: 60 5RF Dose Instruction: TAKE 1 TABLET TWICE A DAY FOR FLUID Rx Instructions: TAKE 1 TABLET TWICE A DAY FOR FLUID spironolactone 50 mg tablet 50 mg PO DAILY Qty: 30 5RF Ozempic 0.25 mg or 0.5 mg (2 mg/3 mL) pen injector 0.5 mg SQ WEEKLY Qty: 3 4RF metformin 1,000 mg tablet 1,000 mg PO BID Qty: 180 1RF omeprazole 40 mg capsule,delayed release(DR/EC) See Rx Instructions .ROUTE .COMPLEX Qty: 180 3RF Dose Instruction: TAKE 1 CAPSULE BY MOUTH TWICE A DAY FOR GERD Rx Instructions: TAKE 1 CAPSULE BY MOUTH TWICE A DAY FOR GERD trazodone 100 mg tablet See Rx Instructions .ROUTE .COMPLEX Qty: 90 3RF Dose Instruction: TAKE 1 TABLET BY MOUTH AT BEDTIME Rx Instructions: TAKE 1 TABLET BY MOUTH AT BEDTIME metoclopramide HCl 10 mg tablet See Rx Instructions .ROUTE .COMPLEX Qty: 360 3RF Dose Instruction: TAKE 1 TABLET BY MOUTH FOUR TIMES A DAY FOR ACID REFLUX Rx Instructions: TAKE 1 TABLET BY MOUTH FOUR TIMES A DAY FOR ACID REFLUX venlafaxine 150 mg capsule,extended release 24hr See Rx Instructions .ROUTE .COMPLEX Qty: 90 3RF Dose Instruction: TAKE 1 CAPSULE BY MOUTH EVERY DAY Rx Instructions: TAKE 1 CAPSULE BY MOUTH EVERY DAY Vraylar 3 mg capsule See Rx Instructions .ROUTE .COMPLEX Qty: 30 1RF Dose Instruction: TAKE 1 CAPSULE BY MOUTH ONCE DAILY Rx Instructions: TAKE 1 CAPSULE BY MOUTH ONCE DAILY tamsulosin 0.4 mg capsule See Rx Instructions .ROUTE .COMPLEX Qty: 30 0RF Dose Instruction: TAKE 1 CAPSULE BY MOUTH ONCE DAILY Rx Instructions: TAKE 1 CAPSULE BY MOUTH ONCE DAILY hydrocodone-acetaminophen 10-325 mg tablet 1 tab PO Q8H PRN (Reason: pain) Qty: 90 0RF Xarelto 20 mg tablet See Rx Instructions .ROUTE .COMPLEX Qty: 90 1RF Dose Instruction: TAKE 1 TABLET BY MOUTH EVERY DAY FOR A FIB Rx Instructions: TAKE 1 TABLET BY MOUTH EVERY DAY FOR A FIB atorvastatin 40 mg tablet See Rx Instructions .ROUTE .COMPLEX Qty: 90 1RF Dose Instruction: TAKE 1 TABLET BY MOUTH EVERY DAY AT BEDTIME FOR CHOLESTEROL Rx Instructions: TAKE 1 TABLET BY MOUTH EVERY DAY AT BEDTIME FOR CHOLESTEROL sildenafil 50 mg tablet 50 mg PO DAILY MDD 100mg PRN (Reason: sexual activity) Qty: 60 0RF Rx Instructions: administer 30 minutes to 4 hours before activity Referrals Follow up/Referrals: Malcolm Hayward APRN [Primary Care Provider] - See instructions Activity Restrictions/Add. Instructions Additional Instructions/Restrictions: Drink plenty of fluids. Take tylenol or ibuprofen for pain or fever. Take the medications as directed. Follow up with your regular doctor. GO TO THE ER FOR ANY WORSENING SYMPTOMS We will culture the urine. That will tell what bacteria is causing your infection and which antibiotics will treat it best. Sometimes the first antibiotic we prescribe turns out to not work against different bacteria. So, make sure you follow up within 3 days if you are not getting better. Clinical Impressions Clinical Impression: UTI (urinary tract infection) Instructions Patient Instructions: Urinary Tract Infection, DI for Urinary Tract Infection (UTI) [place]charge ED Provider[place] Sebastián [place] [facility] [place] General Stated complaint: pain in middle right side Time Seen by Provider: 07/30/23 19:18 Description of Symptoms (Recalled from Triage Doc. by RN): He states that for the past 1 day he has had right flank pain and dysuria. Related Data Home Medications Medication Instructions Recorded Confirmed bisoprolol fumarate 5 mg tablet 2.5 mg PO BID 06/02/23 07/15/23 Previous Rx's Medication Instructions Recorded metformin 1,000 mg tablet 1,000 mg PO BID Diabetes #180 tabs 03/20/21 insulin human U-100 NPH-regulr 60 unit (0.6 mL) SQ TID 30 days 09/26/21 70-30 mix 100 unit/mL subcutaneous #54 mL susp (Novolin 70/30 U-100 Insulin) mupirocin 2 % topical ointment 1 applic topical BID right foot 10/23/22 wound #15 grams omeprazole 40 mg capsule,delayed See Rx Instructions .Route 11/25/22 release .COMPLEX #180 caps trazodone 100 mg tablet See Rx Instructions .Route 12/17/22 .COMPLEX #90 tabs metoclopramide HCl 10 mg tablet See Rx Instructions .Route 01/22/23 .COMPLEX #360 tabs furosemide 40 mg tablet See Rx Instructions .Route 04/08/23 .COMPLEX #60 tabs lorazepam 1 mg tablet 1 mg PO BID anxiety #60 tabs 04/08/23 spironolactone 50 mg tablet 50 mg PO DAILY #30 tabs 04/08/23 semaglutide 0.25 mg or 0.5 mg (2 0.5 mg (0.736 mL) SQ WEEKLY #3 mL 05/12/23 mg/3 mL) subcutaneous pen injector (Ozempic) venlafaxine 150 mg See Rx Instructions .Route 05/27/23 capsule,extended release 24 hr .COMPLEX #90 caps cariprazine 3 mg capsule (Vraylar) See Rx Instructions .Route 07/15/23 .COMPLEX #30 caps gabapentin 600 mg tablet 600 mg PO Q8H neuropathy 30 days 07/15/23 #90 tabs tamsulosin 0.4 mg capsule See Rx Instructions .Route 07/17/23 .COMPLEX #30 caps hydrocodone 10 mg-acetaminophen 1 tab PO Q8H PRN pain #90 tabs 07/22/23 325 mg tablet atorvastatin 40 mg tablet See Rx Instructions .Route 07/27/23 .COMPLEX #90 tabs rivaroxaban 20 mg tablet (Xarelto) See Rx Instructions .Route 07/27/23 .COMPLEX #90 tabs ciprofloxacin HCl 500 mg tablet 500 mg PO BID 10 days #20 tabs 07/30/23 (Cipro) sildenafil 50 mg tablet 50 mg PO DAILY PRN sexual activity 07/30/23 #60 tabs Allergies Allergy/AdvReac Type Severity Reaction Status Date / Time clindamycin Allergy Mild Nausea Verified 07/30/23 19:32 doxycycline AdvReac Mild Upset Verified 07/30/23 19:32 stomach, heartbur PFSH [facility] Disclaimer: The information contained in this section may have been updated after the patient was seen, as this information can be updated by other users. 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 Tachycardia Surgical History History of gastric bypass Social History Smoking Status: Former smoker alcohol intake: former year quit: 2021 counseling given: Yes counseling provided: provider counseling substance use type: denies use current occupational status: unemployed and disabled Travel in the last 8 weeks: None household members: spouse and children housing: house marital status: number of children: 1 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 current occupational exposures/hazards: No pets and animals: Yes pets and animals: cat(s) diet: other caffeine: Yes physical activity: none ROS Obtained: Yes All systems reviewed & no additional complaints except as documented Constitutional Constitutional: Denies chills and Denies fever(s) Eyes Eyes: Denies eye discharge ENT Ears, Nose, Mouth, and Throat: Denies dizziness, Denies otalgia and Denies sore throat Cardiovascular Cardiovascular: Denies chest pain Respiratory Respiratory: Denies shortness of breath, Denies chest congestion, Denies cough, Denies stridor and Denies wheezing Gastrointestinal Gastrointestingal: Denies nausea or vomiting Genitourinary Male Genitourinary: Reports as per HPI, Reports difficulty urinating, Denies urinary hesitancy and Denies urinary incontinence Musculoskeletal Musculoskeletal: Reports system reviewed and no additional complaints, except as documented and Denies arthralgias Integumentary/Breasts Skin/Breast: Denies rash Neurologic Neurologic: Denies dizziness and Denies paresthesias Allergic/Immunologic Allergic/Immunologic: Denies wheezing Physical Exam General General appearance: alert and in no apparent distress Head Head exam: atraumatic, normocephalic and normal inspection Eye Eye exam: Present normal appearance, PERRL and EOMI ENT ENT exam: Present normal exam, normal oropharynx, mucous membranes moist, TM's normal bilaterally and normal external ear exam Neck Neck exam: Present normal inspection, full ROM and trachea midline; Absent meningismus or lymphadenopathy Chest Chest inspection: Present normal inspection and symmetric chest wall rise; Absent tenderness Respiratory Respiratory exam: Present normal lung sounds bilaterally; Absent respiratory distress Cardiovascular Cardiovascular exam: Present regular rate and normal rhythm; Absent JVD Abdominal Exam Abdominal exam: Present soft and normal bowel sounds; Absent distention, tenderness or guarding Extremities Exam Extremities exam: Present normal inspection, full ROM and normal capillary refill; Absent calf tenderness Back Exam Back exam: Present normal inspection; Absent tenderness Neurological Exam Neurological exam: Present alert and oriented X3 Psychiatric Psychiatric exam: Present normal affect and normal mood Skin Skin exam: Present warm, dry, intact and normal color Lymphatic Lymphatic Findings: no adenopathy Medical Decision Making Medical Records Medical records reviewed: No I reviewed the patient's medical records. Sy Inquiry Pt receiving controlled substance: No Lab Data Lab results reviewed: Yes I reviewed the patient's lab results.
[2023-07-30 19:23] LABS: Apearance,Urine Cloudy (Clear); Bilirubin,Urine 1+ (Negative); Blood, Urine Negative (Negative); Color,Urine Red (Yellow); Glucose,Urine (UA) 100 (Negative); Ketones,Urine TRACE (Negative); Protein,Urine 1+ (Negative); Specific Gravity, Urine 1.025 (1.005-1.030); UTC Leukocyte Esterase,Urine Negative (Negative); UTC Nitrate,Urine Positive (Negative); Urobilinogen,Urine 4 EU/dl (0.2)
[2023-07-30] MEDS: LIDOCAINE 1% 5ML PF VIAL IM (19:36)
[2023-07-30] MEDS: cefTRIAXone 1GM VIAL 1 GM IM (19:36)
[2023-07-30 20:04] VITALS: BP 130/69; PULSE 82; RESP 18; TEMP 36.9; O2SAT 96
== END 2023-07-30 20:04 | disposition home or self-care (01) ==
PROVIDERS: Emergency Provider Nurse Practitioner Family; PCP Nurse Practitioner Family
DX: N39.0 Urinary tract infection, site not specified (principal); R10.31 Right lower quadrant pain; J44.9 Chronic obstructive pulmonary disease, unspecified; I11.0 Hypertensive heart disease with heart failure; I50.9 Heart failure, unspecified; E11.9 Type 2 diabetes mellitus without complications; E66.01 Morbid (severe) obesity due to excess calories; Z79.4 Long term (current) use of insulin; Z79.84 Long term (current) use of oral hypoglycemic drugs; Z79.85 Long-term (current) use of injectable non-insulin antidiabetic drugs; Z68.43 Body mass index [BMI] 50.0-59.9, adult; Z87.891 Personal history of nicotine dependence
CPT/HCPCS: 81003; 87086; 96372; 99212; 99214; G0463; J0696

== ENCOUNTER 2023-08-01 10:56 | Emergency (ER) | payer MEDICARE, BC, SELFPAY ==
[2023-08-01 11:01] VITALS: BP 149/83; PULSE 58; RESP 20; TEMP 36.7; O2SAT 95; BMI 59.3
--- NOTE | 2023-08-01 11:01 | HMH.EDGENADL ---
Discharge Plan Disposition Patient Disposition: Home, Self-Care Condition: Good Prescriptions Prescriptions: New promethazine 25 mg tablet 25 mg PO TID PRN (Reason: nausea) Qty: 10 0RF Discontinued metoclopramide HCl 10 mg tablet See Rx Instructions .ROUTE .COMPLEX Qty: 360 3RF Dose Instruction: TAKE 1 TABLET BY MOUTH FOUR TIMES A DAY FOR ACID REFLUX Rx Instructions: TAKE 1 TABLET BY MOUTH FOUR TIMES A DAY FOR ACID REFLUX No Action Novolin 70/30 U-100 Insulin 100 unit/mL (70-30) suspension 60 unit SQ TID 30 Days Qty: 54 2RF lidocaine HCl 10 mg/mL (1 %) solution 10 mg IJ ONCE Qty: 1 0RF lidocaine HCl 10 mg/mL (1 %) solution 10 mg IJ ONCE Qty: 1 0RF triamcinolone acetonide [Kenalog] 40 mg/mL suspension 40 mg IJ ONCE Qty: 1 0RF triamcinolone acetonide [Kenalog] 40 mg/mL suspension 40 mg IJ ONCE Qty: 1 0RF mupirocin 2 % ointment 1 applic topical BID Qty: 15 0RF lorazepam 1 mg tablet 1 mg PO BID Qty: 60 2RF bisoprolol fumarate 5 mg tablet 2.5 mg PO BID gabapentin 600 mg tablet 600 mg PO Q8H 30 Days Qty: 90 2RF furosemide 40 mg tablet See Rx Instructions .ROUTE .COMPLEX Qty: 60 5RF Dose Instruction: TAKE 1 TABLET TWICE A DAY FOR FLUID Rx Instructions: TAKE 1 TABLET TWICE A DAY FOR FLUID spironolactone 50 mg tablet 50 mg PO DAILY Qty: 30 5RF Ozempic 0.25 mg or 0.5 mg (2 mg/3 mL) pen injector 0.5 mg SQ WEEKLY Qty: 3 4RF metformin 1,000 mg tablet 1,000 mg PO BID Qty: 180 1RF omeprazole 40 mg capsule,delayed release(DR/EC) See Rx Instructions .ROUTE .COMPLEX Qty: 180 3RF Dose Instruction: TAKE 1 CAPSULE BY MOUTH TWICE A DAY FOR GERD Rx Instructions: TAKE 1 CAPSULE BY MOUTH TWICE A DAY FOR GERD trazodone 100 mg tablet See Rx Instructions .ROUTE .COMPLEX Qty: 90 3RF Dose Instruction: TAKE 1 TABLET BY MOUTH AT BEDTIME Rx Instructions: TAKE 1 TABLET BY MOUTH AT BEDTIME venlafaxine 150 mg capsule,extended release 24hr See Rx Instructions .ROUTE .COMPLEX Qty: 90 3RF Dose Instruction: TAKE 1 CAPSULE BY MOUTH EVERY DAY Rx Instructions: TAKE 1 CAPSULE BY MOUTH EVERY DAY Vraylar 3 mg capsule See Rx Instructions .ROUTE .COMPLEX Qty: 30 1RF Dose Instruction: TAKE 1 CAPSULE BY MOUTH ONCE DAILY Rx Instructions: TAKE 1 CAPSULE BY MOUTH ONCE DAILY tamsulosin 0.4 mg capsule See Rx Instructions .ROUTE .COMPLEX Qty: 30 0RF Dose Instruction: TAKE 1 CAPSULE BY MOUTH ONCE DAILY Rx Instructions: TAKE 1 CAPSULE BY MOUTH ONCE DAILY hydrocodone-acetaminophen 10-325 mg tablet 1 tab PO Q8H PRN (Reason: pain) Qty: 90 0RF Xarelto 20 mg tablet See Rx Instructions .ROUTE .COMPLEX Qty: 90 1RF Dose Instruction: TAKE 1 TABLET BY MOUTH EVERY DAY FOR A FIB Rx Instructions: TAKE 1 TABLET BY MOUTH EVERY DAY FOR A FIB atorvastatin 40 mg tablet See Rx Instructions .ROUTE .COMPLEX Qty: 90 1RF Dose Instruction: TAKE 1 TABLET BY MOUTH EVERY DAY AT BEDTIME FOR CHOLESTEROL Rx Instructions: TAKE 1 TABLET BY MOUTH EVERY DAY AT BEDTIME FOR CHOLESTEROL sildenafil 50 mg tablet 50 mg PO DAILY MDD 100mg PRN (Reason: sexual activity) Qty: 60 0RF Rx Instructions: administer 30 minutes to 4 hours before activity ciprofloxacin HCl [Cipro] 500 mg tablet 500 mg PO BID 10 Days Qty: 20 0RF Referrals Follow up/Referrals: Malcolm Hayward APRN [Primary Care Provider] - See instructions Activity Restrictions/Add. Instructions Additional Instructions/Restrictions: Your labs are overall reassuring today. You did not have ketones in your blood or urine. Your urinalysis still shows some signs of infection but is improved in comparison to prior. Your antibiotic may be causing some of your nausea. I have prescribed a different type of nausea medication. Please return with any new or worsening symptoms. Clinical Impressions Clinical Impression: Nausea Instructions Patient Instructions: DI for Diarrhea and Traveler's Diarrhea -- Adult, DI for Diarrhea and Traveler's Diarrhea -- Child, DI for Nausea -- Adult, DI for Nausea -- Child Discharge ED Provider: Golden Haskins General Adult HPI General Chief complaint: Nausea/Vomiting/Diarrhea Stated complaint: right kidney pain vomiting fever Time Seen by Provider: 08/01/23 11:01 History of Present Illness HPI narrative: Patient presents following recent diagnosis at urgent treatment center of acute cystitis. He has history of type 2 diabetes, obesity, and chronic back pain. He states he contacted the urgent treatment center for change in antiemetic therapy as he was having some nausea and vomiting and was informed that due to ketones in his urine he should present to the emergency department. Symptoms began approximately 48 hours ago when he noticed pain in his right flank. He was prescribed for quinolone. The pain is nonradiating moderate in severity and different from his chronic back pain and that his chronic back pain is more midline and lower in his back. He denies any dysuria. He states he has had some nausea prior to being prescribed the antibiotic but his nausea is worsened after taking the antibiotic. He has been compliant with the antibiotic. He denies any fevers. He denies any worsening pain. He denies any chest pain. He denies any dysuria at this time. He denies any abdominal pain. He denies any hematuria. He states his blood glucose levels have been within normal range over the past 24 hours. He denies any history of sensitivity to previously prescribed antiemetic of Zofran. Related Data Home Medications Medication Instructions Recorded Confirmed bisoprolol fumarate 5 mg tablet 2.5 mg PO BID 06/02/23 07/15/23 Previous Rx's Medication Instructions Recorded metformin 1,000 mg tablet 1,000 mg PO BID Diabetes #180 tabs 03/20/21 insulin human U-100 NPH-regulr 60 unit (0.6 mL) SQ TID 30 days 09/26/21 70-30 mix 100 unit/mL subcutaneous #54 mL susp (Novolin 70/30 U-100 Insulin) mupirocin 2 % topical ointment 1 applic topical BID right foot 10/23/22 wound #15 grams omeprazole 40 mg capsule,delayed See Rx Instructions .Route 11/25/22 release .COMPLEX #180 caps trazodone 100 mg tablet See Rx Instructions .Route 12/17/22 .COMPLEX #90 tabs furosemide 40 mg tablet See Rx Instructions .Route 04/08/23 .COMPLEX #60 tabs lorazepam 1 mg tablet 1 mg PO BID anxiety #60 tabs 04/08/23 spironolactone 50 mg tablet 50 mg PO DAILY #30 tabs 04/08/23 semaglutide 0.25 mg or 0.5 mg (2 0.5 mg (0.736 mL) SQ WEEKLY #3 mL 05/12/23 mg/3 mL) subcutaneous pen injector (Ozempic) venlafaxine 150 mg See Rx Instructions .Route 05/27/23 capsule,extended release 24 hr .COMPLEX #90 caps cariprazine 3 mg capsule (Vraylar) See Rx Instructions .Route 07/15/23 .COMPLEX #30 caps gabapentin 600 mg tablet 600 mg PO Q8H neuropathy 30 days 07/15/23 #90 tabs tamsulosin 0.4 mg capsule See Rx Instructions .Route 07/17/23 .COMPLEX #30 caps hydrocodone 10 mg-acetaminophen 1 tab PO Q8H PRN pain #90 tabs 07/22/23 325 mg tablet atorvastatin 40 mg tablet See Rx Instructions .Route 07/27/23 .COMPLEX #90 tabs rivaroxaban 20 mg tablet (Xarelto) See Rx Instructions .Route 07/27/23 .COMPLEX #90 tabs ciprofloxacin HCl 500 mg tablet 500 mg PO BID 10 days #20 tabs 07/30/23 (Cipro) sildenafil 50 mg tablet 50 mg PO DAILY PRN sexual activity 07/30/23 #60 tabs promethazine 25 mg tablet 25 mg PO TID PRN nausea #10 tabs 08/01/23 Allergies Allergy/AdvReac Type Severity Reaction Status Date / Time clindamycin Allergy Mild Nausea Verified 07/30/23 19:32 doxycycline AdvReac Mild Upset Verified 07/30/23 19:32 stomach, heartbur PFSH PFS Disclaimer: The information contained in this section may have been updated after the patient was seen, as this information can be updated by other users. 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 Tachycardia Surgical History History of gastric bypass Social History Smoking Status: Never smoker alcohol intake: former year quit: 2021 counseling given: Yes counseling provided: provider counseling substance use type: denies use current occupational status: unemployed and disabled Travel in the last 8 weeks: None household members: spouse and children housing: house marital status: number of children: 1 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 current occupational exposures/hazards: No pets and animals: Yes pets and animals: cat(s) diet: other caffeine: Yes physical activity: none ROS Obtained: Yes Systems reviewed as appropriate & no additional complaints except as documented As per HPI Physical Exam General General appearance: alert and in no apparent distress Head Head exam: atraumatic and normocephalic Eye Eye exam: Present normal appearance Neck Neck exam: Present normal inspection Chest Chest inspection: Present normal inspection and symmetric chest wall rise Respiratory Respiratory exam: Present normal lung sounds bilaterally; Absent respiratory distress Cardiovascular Cardiovascular exam: Present regular rate and normal rhythm Abdominal Exam Abdominal exam: Present soft; Absent distention or tenderness Comment: Mild right CVA tenderness Neurological Exam Neurological exam: Present alert and oriented X3 Psychiatric Psychiatric exam: Present normal affect and normal mood Skin Skin exam: Present warm and dry Medical Decision Making Medical Records Medical records reviewed: Yes I reviewed the patient's medical records. Sy Inquiry Pt receiving controlled substance: No Vital Signs: 08/01/23 11:01 08/01/23 12:40 Temperature 98.1 F 98.1 F Temperature Source Oral Pulse Rate 75 Pulse Rate [Left Radial] 58 L Respiratory Rate 20 18 Blood Pressure 147/79 H Blood Pressure [Left Arm] 149/83 H Blood Pressure Mean [Left Arm] 105 02 Sat by Pulse Oximetry 95 Oxygen Delivery Method Room Air Room Air Lab Data Lab Results 08/01/23 11:02: Urine Color Odalys, Urine Appearance Sl cloudy, Urine pH 6.5, Ur Specific [place] >= 1.030, Urine Protein 1+, Urine Glucose (UA) Negative, Urine Ketones Negative, Urine Blood Negative, Urine Nitrate Positive, Urine Bilirubin Negative, Urine Urobilinogen 0.2, Ur Leukocyte Esterase Negative, Urine RBC None, Urine WBC None, Ur Squamous Epith Cells Occasional, Hyaline Casts Occasional 08/01/23 11:39: WBC 6.6, RBC 5.27, Hgb 14.9, Hct 45.0, MCV 85.4, MCH 28.3, MCHC 33.1, RDW 16.2, Plt Count 131 L, MPV 8.2, Neut % (Auto) 78.3, Lymph % (Auto) 14.3, [place] % (Auto) 5.8, Eos % (Auto) 1.3, Baso % (Auto) 0.3, Neut # (Auto) 5.2, Lymph # (Auto) 1.0, [place] # (Auto) 0.4, Eos # (Auto) 0.1, Baso # (Auto) 0.0, VBG pH 7.41, VBG pCO2 32.8 L, VBG pO2 74.8 H, VBG HCO3 20.5 L, VBG Total CO2 21.5 L, VBG O2 Saturation 95.2 H, VBG Base Excess -4.1 L, Sodium 136, Potassium 3.8, Chloride 103, Carbon Dioxide 25, Anion Gap 11.8, BUN 8 L, Creatinine 0.60 L, Estimated Creat Clear 174, Estimated GFR 145, Est GFR ( Amer) 176, Glucose 97, Calcium 9.2, Total Bilirubin 1.1, AST 32, ALT 31, Alkaline Phosphatase 52, Total Protein 7.3, Albumin 4.1, Globulin 3.2, Albumin/Globulin Ratio 1.3, Acetone Level None detected 08/01/23 11:39 08/01/23 11:39 Orders (Tests/Meds): ORDERS Category Date Time Status Acetone, Serum (Rapid) Stat Lab 08/01/23 11:39 Completed CBC w/Auto Diff [Complete Blood Count Auto Diff] Stat Lab 08/01/23 11:39 Completed CMP [Comprehensive Metabolic Panel] Stat Lab 08/01/23 11:39 Completed Urinalysis and Microscopic Stat Lab 08/01/23 11:02 Completed VBG [Venous Blood Gas] Stat RT 08/01/23 11:39 Completed Medical Decision Narrative: Patient with history and exam per above presenting for evaluation of nausea, in the setting of recent diagnosis of cystitis and initiation of fluoroquinolone Diagnoses considered include nausea in the setting of antibiotic use, DKA, HHS, pyelonephritis, among others ED workup and treatment included: ORDERS Category Date Time Status Acetone, Serum (Rapid) Stat Lab 08/01/23 11:39 Completed CBC w/Auto Diff [Complete Blood Count Auto Diff] Stat Lab 08/01/23 11:39 Completed CMP [Comprehensive Metabolic Panel] Stat Lab 08/01/23 11:39 Completed Urinalysis and Microscopic Stat Lab 08/01/23 11:02 Completed VBG [Venous Blood Gas] Stat RT 08/01/23 11:39 Completed Labs were independently interpreted by me, significant for no leukocytosis, no ketonuria, no serum ketones My clinical impression at this time is most consistent with likely nausea either refractory to Zofran in the setting of cystitis versus pyelonephritis or nausea precipitated by antibiotic therapy. Clinically and based on my workup and clinical picture at this time, there is minimal to no evidence to suggest that patient's nausea is the result of clinical deterioration. I discussed my clinical impression with patient and answered all questions. At this time, the evidence for any other entities in the differential is insufficient to warrant any further testing or ED observation. This was explained to the patient. The patient was advised that persistent or worsening symptoms require further evaluation. I confirmed the patient's understanding of this discussion. Critical Care Critical Care Time Critical Care Time: No
--- NOTE | 2023-08-01 11:11 | PC.NURSE ---
fsbs 87
[2023-08-01 11:44] LABS: Microscopic, Urine URINE MICROSCOPIC (MICROSCOPIC)
[2023-08-01 11:46] LABS: VBG Base Excess -4.1 mmol/L (-2.4-2.3); VBG HCO3 20.5 mmol/L (23-30); VBG Oxygen Saturation 95.2 % (50-70); VBG PCO2 32.8 mmol/L (35-51); VBG PH 7.41 mmol/L (7.31-7.41); VBG PO2 74.8 mmol/L (28-40); VBG Total CO2 21.5 mmol/L (23-27)
[2023-08-01 11:47] LABS: Appearance,Urine SL CLOUDY (Clear); Blood, Urine Negative (Negative); Color,Urine AMBER (Yellow); Glucose,Urine (UA) Negative (Negative); Ketones,Urine Negative (Negative); Leukocyte Esterase,Urine Negative (Negative); Nitrate,Urine POSITIVE (Negative); PH,Urine 6.5 (5.0-8.5); Protein,Urine 1+ (Negative); Specific Gravity, Urine >= 1.030 (1.005-1.030); Urobilinogen,Urine 0.2 EU/dl (0.2)
[2023-08-01 11:49] LABS: Basophils % 0.3 % (0.1-2.0); Eosinophils # 0.1 K/mm3 (0.0-0.4); Eosinophils % 1.3 % (0.1-12.0); Hemoglobin 14.9 g/dL (14.1-18.0); Lymphocytes % 14.3 % (10-50); Mean Corpuscular HGB Conc 33.1 g/dL (31.8-35.4); Mean Corpuscular Hemoglobin 28.3 pg (27.0-31.2); Mean Corpuscular Volume 85.4 fl (80-94); Mean Platelet Volume 8.2 fl (7.4-10.4); Monocytes # 0.4 K/mm3 (0.1-1.0); Monocytes % 5.8 % (1.7-9.3); Neutrophils # 5.2 K/mm3 (1.8-7.8); Neutrophils % 78.3 % (37.0-80.0); Platelet Count 131 K/mm3 (142-424); Red Blood Count 5.27 M/mm3 (4.60-6.20); Red Cell Distribution Width 16.2 % (11.5-17.5); White Blood Count 6.6 K/mm3 (4.8-10.8)
[2023-08-01 11:53] LABS: Bilirubin,Urine Negative (Negative)
[2023-08-01 12:00] LABS: Alanine Aminotransferase 31 U/L (12-78); Albumin Level 4.1 g/dl (3.5-5.0); Albumin/Globulin Ratio 1.3 (1.1-1.8); Alkaline Phosphatase 52 U/L (38-126); Anion Gap 11.8 mEq/L (5-15); Aspartate Amino Transferase 32 U/L (17-59); Bilirubin,Total 1.1 mg/dl (0.2-1.3); Blood Urea Nitrogen 8 mg/dl (9-20); Calcium 9.2 mg/dl (8.4-10.2); Carbon Dioxide 25 mmol/L (22.0-30.0); Chloride 103 mmol/L (98-107); Creatinine Clearance Estimated 174 mL/min (50-200); Estimated Glomerular Filt Rate 145 ml/min (>60); GFR (African American) 176 ML/MIN (>60); Globulin 3.2 g/dL (1.3-3.2); Glucose 97 mg/dl (74-100); Potassium 3.8 mmoL/L (3.5-5.1); Sodium 136 mmol/L (136-145); Total Protein,Serum 7.3 g/dl (6.3-8.2)
[2023-08-01 12:08] LABS: Acetone, Serum (Rapid) None Detected (None Detect)
[2023-08-01 12:11] LABS: Squamous Epithelial Cell,Urine Occasional #/hpf (0-5)
[2023-08-01 12:12] LABS: Hyaline Casts,Urine Occasional #/lpf (0)
[2023-08-01 12:40] VITALS: BP 147/79; PULSE 75; RESP 18; TEMP 36.7; O2SAT 94
== END 2023-08-01 12:41 | disposition home or self-care (01) ==
PROVIDERS: Emergency Provider Emergency Medicine; PCP Nurse Practitioner Family
DX: R11.2 Nausea with vomiting, unspecified (principal); R10.9 Unspecified abdominal pain; M54.50 Low back pain, unspecified; G89.29 Other chronic pain; I11.0 Hypertensive heart disease with heart failure; I50.9 Heart failure, unspecified; J44.9 Chronic obstructive pulmonary disease, unspecified; M51.36 Other intervertebral disc degeneration, lumbar region; E11.9 Type 2 diabetes mellitus without complications; F33.9 Major depressive disorder, recurrent, unspecified
CPT/HCPCS: 80053; 81001; 82009; 82803; 85025; 99285

== ENCOUNTER 2023-08-13 12:50 | Outpatient (CLI) | payer MEDICARE, BC, SELFPAY ==
--- NOTE | 2023-08-13 12:51 | MR_ITS ---
FINAL REPORT CLINICAL HISTORY: Low Back Pain FINDINGS: Multiplanar MR imaging of the lumbar spine was performed without contrast. There is moderate motion artifact. On the sagittal T2-weighted images, multilevel disc degeneration is seen. The vertebral alignment is normal. There is no evidence of fracture. No bony mass is identified. The conus is seen at approximately the L1 level and has an unremarkable appearance. L1-2: There is no significant canal stenosis or neural foraminal narrowing. L2-3: There is a mild annular disc bulge without significant canal stenosis or neural foraminal narrowing. L3-4: Mild annular disc bulge with borderline central canal stenosis and mild bilateral neuroforaminal narrowing. L4-5: Mild diffuse disc bulge with facet arthropathy. There is borderline central canal stenosis and mild bilateral neuroforaminal narrowing. L5-S1: Mild annular disc bulge with facet arthropathy. There is borderline central canal stenosis and mild bilateral neuroforaminal narrowing. IMPRESSION: Mild annular disc bulges without significant central canal stenosis. Reviewed, Interpreted and Dictated by Melany Joyner MD Transcribed by Aviva Ayala Authenticated and . [facility]
== END 2023-08-13 23:59 ==
LOC: RAD 12:51
PROVIDERS: PCP Nurse Practitioner Family; Visit Provider Nurse Practitioner Family
DX: M54.16 Radiculopathy, lumbar region (principal)
CPT/HCPCS: 72148; 76376

== ENCOUNTER 2023-08-25 15:00 | Outpatient (RCR) | payer MEDICARE, BC, SELFPAY ==
--- NOTE | 2023-08-06 15:13 | HMH.PTOPEV ---
PT Outpatient Evaluation Rehab PT Outpatient Evaluation Start: 08/06/23 13:59 Freq: Status: Active Protocol: Document 08/06/23 14:49 NUVIA (Rec: 08/06/23 15:12 NUVIA [id number]) E-signed By Colin Malhotra, PT Outpatient Therapy Subjective History Subjective History This is the inital PT eval for Gonzalo Russell, 48 yowm who presents with c/o chronic low back pain x ~ 8 yrs. He reports pain is worse with any standing activity, especially carver hand, or lifting. I can't stand for more than 10 minutes. He also reports intermittent pain in his coccyx area, made worse by prolonged sitting. He reports no significant radicular symptoms in his legs, but he does suffer from severe diabetic neuropathy from B knees distally. He has PMH of DM, CHF, COPD, DDD, anxiety, depression, morbid obesity, gastric bypass. New diagnosis of cancer in past 12 No months? Chief Complaint Pain Symptom Type Ache,Dull Symptoms Relieved By Heat Symptoms Aggravated By Standing,Physical Activity, Twisting Prior Functional Limitations None Current Functional Limitations Housework,Standing,Recreation Activity,Walking Level of pain today (0-10) 3 Pain scale - at its worst (0-10) 8 Lumbopelvic Eval Posture Thoracic Spine Posture Standing Position Neutral Lumbar Spine Posture Standing Position Neutral Assistive device Assistive Devices Straight Cane Range of Motion Lumbar Spine Active Flexion Range of 0-60 Motion (degrees) Lumbar Spine Active Extension Range of 0-20 Motion (degrees) Left Lumbar Spine Lateral Flexion Active 0-10 Range of Motion (degrees) Right Lumbar Spine Lateral Flexion 0-10 Active Range of Motion (degrees) Manual Muscle Test Bilateral Knee Extension Strength Grade 5 Normal Knee Flexion Strength Grade 5 Normal Hip Flexion Strength Grade 5 Normal Hip Abduction Strength Grade 5 Normal Hip Adduction Strength Grade 5 Normal Hip External Rotation Strength Grade 5 Normal Hip Internal Rotation Strength Grade 5 Normal Hip Extension Strength Grade 5 Normal Ankle Dorsiflexion Strength Grade 5 Normal Gastronemius/Soleus Strength Grade 5 Normal Special Tests Hip Scouring (Quadrant) Test Negative Left,Negative Right Hip Froylan (DAREK) Test Negative Left,Negative Right Hip Piriformis Test Negative Left,Negative Right Sciatic Nerve Tension Test Negative Left,Negative Right Unilateral Straight Leg Raise (Lasegue) Negative Left,Negative Right Test Lumbar Long [place] Distraction Test/Manual Positive Traction Oswestry Index Section 1 Pain Intensity The pain comes and goes and is severe Section 2 Personal Care (Washing,Dresing) my way of washing or dressing even though it causes some pain Section 3 Lifting lifting heavy weights off the floor, but I can manage light to medium Section 4 Walking I cannot walk more than 1/2 mile without increasing pain Section 5 Sitting I can sit in my favorite chair for as long as I like Section 6 Standing I cannot stand more than 10 minutes without increasing pain Section 7 Sleeping Because of my pain, my normal night's sleep is less than 6 hours sleep Section 8 Social Life Pain has no significant effect on my social life apart from limiting Section 9 Traveling Pain restricts all forms of travel Section 10 Changing Degreee of Pain My pain is neither getting better or worse Score and Risk Level Oswestry Sc 29 Oswestry Risk Level Severe Disability Outpatient Therapy Assessment Impairments Problems/Impairmments Impaired Range of Motion, Impaired Endurance,Impaired Walking,Impaired Standing, Impaired Sitting,Impaired Lifting,Impaired Household Care,Impaired Recreational Activities,Subjective C/O Pain ,Impaired Self Care/Self Management Prognosis Rehab Potential Good Clinical Impression Consistent with Diagnosis Yes Short Term Goals Number of Weeks 2 Increase Range of Motion Yes: Lumbar AROM by 5 deg Increase Ability to Stand Yes: >15 min without pain Improve Oswestry Score Yes: <25 Decrease Subjective C/O Pain Yes: 610 at worst Patient to be Ind w/ HEP Yes Fpc Goals Number of Weeks 4 Increase Range of Motion Yes: Lumbar AROM by 10 deg Increase Ability to Walk Yes: <15 min without pain Improve Ability For Household Care Yes Improve Oswestry Score Yes: <22 Decrease Subjective C/O Pain Yes: 10 at worst Patient to be Ind w/ Advanced HEP Yes Outpatient Therapy Plan of Care Treatment Plan May Include Therapeutic Exercise Including Home Yes Exercise Program Manual Therapy Techniques Yes Neuromuscular Re-education Yes Therapeutic Activities to Return to Yes Previous Functional/Work Level ADL/Self Care Education Yes Thermal Modalities Yes Electrical Stimulation Yes Ultrasound/Phonophoresis Yes Orthotics/Bracing/Splinting Yes Massage Yes Eval/Re-Eval Yes Frequency Times per week 2 Duration Number of Weeks 4 Addendums This patient is a candidate for social No or vocational rehab? Patient/Guardian verbally acknowledges Yes understanding of treatment program and consents to further treatment? Patient/Guardian verbally acknowledges Yes understanding of diagnosis, prognosis and goals for treatment? Eval Complexity PT Charges 02903 - High Complexity Shoulder/Elbow Eval Shoulder Objective Measurements Elbow Objective Measurements PHYSICIAN CERTIFICATION: I certify the specified therapy services for Gonzalo Russell are required, authorized, and reviewed every 30 days.
== END 2023-08-25 16:00 | disposition home or self-care (01) ==
LOC: PT 15:00
PROVIDERS: PCP Nurse Practitioner Family; Visit Provider Nurse Practitioner Family
DX: M54.50 Low back pain, unspecified (principal); M54.16 Radiculopathy, lumbar region
CPT/HCPCS: 97010; 97014; 97110; 97163; G0283

== ENCOUNTER 2023-10-28 14:03 | Outpatient (CLI) | payer MEDICARE, BC, SELFPAY ==
[2023-10-28 14:31] LABS: Basophils % 0.3 % (0.1-2.0); Eosinophils # 0.2 K/mm3 (0.0-0.4); Eosinophils % 1.5 % (0.1-12.0); Hematocrit 46.1 % (42.0-52.0); Hemoglobin 15.5 g/dL (14.1-18.0); Lymphocytes # 1.6 K/mm3 (0.7-4.5); Lymphocytes % 16.1 % (10-50); Mean Corpuscular HGB Conc 33.7 g/dL (31.8-35.4); Mean Corpuscular Hemoglobin 29.1 pg (27.0-31.2); Mean Corpuscular Volume 86.4 fl (80-94); Mean Platelet Volume 6.8 fl (7.4-10.4); Monocytes # 0.5 K/mm3 (0.1-1.0); Monocytes % 5.4 % (1.7-9.3); Neutrophils # 7.7 K/mm3 (1.8-7.8); Neutrophils % 76.6 % (37.0-80.0); Platelet Count 183 K/mm3 (142-424); Red Blood Count 5.33 M/mm3 (4.60-6.20); Red Cell Distribution Width 15.1 % (11.5-17.5)
[2023-10-28 15:01] LABS: Alanine Aminotransferase 28 U/L (12-78); Albumin Level 4.4 g/dl (3.5-5.0); Alkaline Phosphatase 55 U/L (38-126); Anion Gap 11.1 mEq/L (5-15); Aspartate Amino Transferase 28 U/L (17-59); Bilirubin,Direct 0.3 mg/dl (0.0-0.4); Bilirubin,Indirect 0.8 mg/dL (0.0-0.9); Bilirubin,Total 1.1 mg/dl (0.2-1.3); Bilirubin,Unconjugated 0.8 mg/dL (0.0-1.1); Blood Urea Nitrogen 13 mg/dl (9-20); Calcium 9.9 mg/dl (8.4-10.2); Carbon Dioxide 30 mmol/L (22.0-30.0); Chloride 102 mmol/L (98-107); Chol/HDL Ratio 3.6 (1-3.5); Cholesterol 126 mg/dl (140-200); Estimated Glomerular Filt Rate 121 ml/min (>60); GFR (African American) 147 ML/MIN (>60); Glucose 105 mg/dl (74-100); HDL Cholesterol 35 mg/dl (40-60); Potassium 4.1 mmoL/L (3.5-5.1); Sodium 139 mmol/L (136-145); Triglycerides 116 mg/dl (30-150); VLDL Cholesterol 23 mg/dL (0-40)
[2023-10-28 15:12] LABS: Direct LDL Cholesterol 58.25 mg/dL (100-129)
[2023-10-28 15:35] LABS: Thyroid Stimulating Hormone 1.89 uIU/mL (0.465-4.68)
[2023-10-28 15:39] LABS: Troponin I < 0.01 ng/ml (0.00-0.034)
[2023-10-28 17:30] LABS: Hemoglobin A1C 6.2 % (4.0-6.0)
[2023-10-28 19:21] LABS: Free T4 (Free Thyroxine) 1.26 ng/dl (0.78-2.19)
== END 2023-10-28 23:59 | disposition home or self-care (01) ==
LOC: LAB 14:05
PROVIDERS: PCP Nurse Practitioner Family; Visit Provider Nurse Practitioner Family
DX: E78.5 Hyperlipidemia, unspecified (principal); E11.9 Type 2 diabetes mellitus without complications; I50.32 Chronic diastolic (congestive) heart failure; I48.0 Paroxysmal atrial fibrillation; R61 Generalized hyperhidrosis; Z79.4 Long term (current) use of insulin; Z79.84 Long term (current) use of oral hypoglycemic drugs; Z79.85 Long-term (current) use of injectable non-insulin antidiabetic drugs
CPT/HCPCS: 36415; 80048; 80061; 80076; 83036; 84439; 84443; 84484; 85025

== ENCOUNTER 2023-12-31 22:24 | Outpatient (CLI) | payer MEDICARE, BC, SELFPAY ==
[2023-12-31 23:57] LABS: Creatinine,Urine Random 68 mg/dL (Not Estab.)
[2024-01-01 00:03] LABS: Microalbumin < 6.000 mg/L (0-16.7)
== END 2023-12-31 23:59 | disposition home or self-care (01) ==
LOC: LAB.DROPOF 22:25
PROVIDERS: PCP Nurse Practitioner Family; Visit Provider Nurse Practitioner Family
DX: E78.2 Mixed hyperlipidemia (principal)
CPT/HCPCS: 82043; 82570

== ENCOUNTER 2024-01-29 08:50 | Outpatient (CLI) | payer MEDICARE, BC, SELFPAY ==
[2024-01-29 10:58] LABS: Chloride 100 mmol/L (98-107)
[2024-01-29 10:59] LABS: Sodium 141 mmol/L (136-145)
[2024-01-29 11:01] LABS: Alanine Aminotransferase 19 U/L (12-78); Aspartate Amino Transferase 20 U/L (17-59); Blood Urea Nitrogen 18 mg/dl (9-20); Carbon Dioxide 34 mmol/L (22.0-30.0); Estimated Glomerular Filt Rate 121 ml/min (>60); GFR (African American) 147 ML/MIN (>60)
[2024-01-29 11:02] LABS: Albumin Level 3.9 g/dl (3.5-5.0); Albumin/Globulin Ratio 1.1 (1.1-1.8); Alkaline Phosphatase 57 U/L (38-126); Bilirubin,Total 0.8 mg/dl (0.2-1.3); Calcium 9.4 mg/dl (8.4-10.2); Chol/HDL Ratio 2.8 (1-3.5); Cholesterol 132 mg/dl (140-200); Globulin 3.5 g/dL (1.3-3.2); Glucose 97 mg/dl (74-100); HDL Cholesterol 48 mg/dl (40-60); Total Protein,Serum 7.4 g/dl (6.3-8.2); Triglycerides 87 mg/dl (30-150); VLDL Cholesterol 17 mg/dL (0-40)
[2024-01-29 11:13] LABS: Direct LDL Cholesterol 62.28 mg/dL (100-129)
[2024-01-29 11:17] LABS: Free T4 (Free Thyroxine) 1.44 ng/dl (0.78-2.19)
[2024-01-29 11:34] LABS: Thyroid Stimulating Hormone 3.13 uIU/mL (0.465-4.68)
== END 2024-01-29 23:59 | disposition home or self-care (01) ==
LOC: LAB 08:53
PROVIDERS: PCP Nurse Practitioner Family; Visit Provider Nurse Practitioner Family
DX: E11.65 Type 2 diabetes mellitus with hyperglycemia (principal); Z79.4 Long term (current) use of insulin
CPT/HCPCS: 36415; 80053; 80061; 84439; 84443

== ENCOUNTER → 2024-02-10 07:46 | Outpatient (CLI) | payer MEDICARE, BC, SELFPAY | LOC: SL 07:47 | PROVIDERS: PCP Nurse Practitioner Family; Visit Provider Specialist | DX: G47.33 Obstructive sleep apnea (adult) (pediatric) (principal); G47.36 Sleep related hypoventilation in conditions classified elsewhere | CPT/HCPCS: G0399 ==

== ENCOUNTER 2024-02-18 12:03 | Inpatient (IN) | payer MEDICARE, BC, SELFPAY ==
[2024-02-18] VITALS (12 sets, daily range): BP systolic 121–155; BP diastolic 73–91; PULSE 91–155; RESP 13–22; TEMP 36.6–36.7; O2SAT 91–95; BMI 66.3; BMI 65.5
--- OUTSIDE RECORDS SUMMARY | 2024-02-18 12:12 | XMS_ITS ---
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
--- OUTSIDE RECORDS SUMMARY | 2024-02-18 12:12 | XMS_ITS ---
Author Name Mohit Go Address [address] [place] [address] Organization Unknown Address [address] [place] [address] ALLERGIES AND ADVERSE REACTIONS No information ASSESSMENT No information CHIEF COMPLAINT No information MEDICATIONS No information OBJECTIVE DATA No information PHYSICAL EXAMINATION No information TREATMENT PLAN Planned Care Start Date Provider Encounter for Check-up [phone] [facility] PROBLEMS No information RESULTS No information REVIEW OF SYSTEMS No information SUBJECTIVE DATA No information VITAL SIGNS No information
--- OUTSIDE RECORDS SUMMARY | 2024-02-18 12:12 | XMS_ITS | Clinical Summary ---
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 Name Role Phone Allen RUSH, Emanuel Maurice Unavailable [phone] TRELL BECKWITH MD Unavailable [phone] LINETTE DPZI Blackman Unavailable [phone] Petty Frost PA-C Primary Care Provider [phone] Reason for Visit and Chief Complaint referred by self - The Chief Complaint is: Low back pain Problems Includes: Problems addressed during this encounter and other active Problems Current Visit Onset Date Resolved Date Provider Conditio n Status Lower Back Pain 04/22/2019 Emanuel Villa MD Act margarito Last Documented On 9 11:03AM ; [facility], [facility] Past Visits Onset Date Resolved Date Provider Condition Status Bone Pain in the Heel 06/27/2014 Randy Booth DPM Active Last Documented On 4 1:06PM ; [facility], [facility] Plan of Treatment patient was seen by myself and Dr. Allen Foote PA-C. Patient will follow up 4 weeks after he tries interspinous process injection at L3-L4 no surgery would be needed for him - Last Documented On 11/02/2022 1:37PM ; [facility] Instructions to patient Instructions for patient See PCP for BP and Weight Last Documented On 2 2:52PM ; [facility], [facility] Intervention and counseling on cessation of tobacco use Last Documented On 2 3:18PM ; [facility], [facility] Lose weight Last Documented On 2 2:52PM ; [facility], [facility] Assessments Includes: Assessments from this encounter Findings L3-L4 spinous process edema - Last Documented On 11/02/2022 1:37PM ; [facility], [facility] Instructions Includes: Instructions from this encounter Instructions to patient Instructions for patient See PCP for BP and Weight Last Documented On 2 2:52PM ; [facility], [facility] Intervention and counseling on cessation of tobacco use Last Documented On 2 3:18PM ; [facility], [facility] Lose weight Last Documented On 2 2:52PM ; [facility], [facility] Medical Equipment - Implanted Devices Includes: Current Devices No Medical Equipment Recorded Medications Includes: Medications discussed during this encounter and other current Medications Current Medications (continue as prescribed) Xarelto 20 MG Oral Tablet 11/16/2021 Provider: Diagnosis: Last Documented On 2 3:17PM By Estrellita Vázquez ; [facility], [facility] Metoclopramide HCl 10 MG Oral Tablet 04/21/2019 Prov ider: Chintan Aguayo MD Diagnosis: Last Documented On 9 4:08PM By Daniel Mo ; [facility] Atorvastatin Calcium 40 MG Oral Tablet 04/21/2019 Pr ovider: Diagnosis: Last Documented On 9 4:08PM By Daniel Mo ; [facility], [facility] Furosemide 40 MG Oral Tablet 04/21/2019 Provider: Diagnosis: Last Documented On 9 4:09PM By Daniel Mo ; [facility], [facility] Potassium Chloride 20 MEQ Oral Packet 04/21/2019 Pro vider: Diagnosis: Last Documented On 9 4:09PM By Daniel Mo ; [facility], [facility] Omeprazole 40 MG Oral Capsul e Delayed Release 04/21/2019 Provider: Chintan Aguayo MD Diagnosis: Last Documented On 9 4:10PM By Daniel Mo ; [facility] ARIPiprazole 5 MG Oral Tablet 04/14/2019 Provider: Diagnosis: Last Documented On 9 4:10PM By Daniel Mo ; [facility], [facility] Venlafaxine HCl ER 150 MG Or al Capsule Extended Release 24 Hour 03/31/2019 Provider: Diagnosis: Last Documented On 9 4:10PM By Daniel Mo ; [facility], [facility] metFORMIN HCl 1000 MG Oral Tablet 03/10/2019 Provide r: Chintan Aguayo MD Diagnosis: Last Documented On 9 4:10PM By Daniel Mo ; [facility], [facility] Lisinopril-hydroCHLOROthiazi de 20-25 MG Oral Tablet 03/04/2019 Provider: TRELL BECKWITH MD Diagnosis: Last Documented On 9 4:10PM By Daniel Mo ; [facility], [facility] Past Medications on file Diclofenac Potassium 50 MG O R TABS 06/27/2014 - 07/27/2014 Provider: Randy DUMONT Diagnosis: be Last Documented On 4 1:34PM By Isa Avendano ; [facility], [facility] Medications Administered Includes: Administered Medications from this encounter No Administered Medications Recorded Vital Signs Includes: Vital Signs from this encounter Vital Name 12/12/2021 02:53P Blood Pressure Sitting (mmHg) 142/92 Pulse Rate-Sitting (bpm) 89 Height (in) 72 Weight (lb) 498 Body Mass Index (kg/m2) 67.5 Body Surface Area (m2) 3.1 Note: mg Last Documented: On 12/12/2021 3:18PM ; [facility], [facility] Results Includes: Results discussed during this encounter No Results Recorded For Specified Dates History of Present Illness Includes: History of Present Illness from this encounter SHEILA Russell is a 46 year old male. - Allergy list reviewed - Problem list reviewed - Medication reconciliation performed - Medication list reviewed - Medication list reviewed with patient Patient is here today with complaints of mainly low back pain he was last seen 3 years ago he has difficulty standing for more than 10 to 15 minutes he did undergo weight loss surgery and had a gastric sleeve at 1 point his weight was up to 582 he says he is down to 498. He denies any bowel or bladder issues with this. He does have some pain with extension Social History Description Last Updated Smoker 12/12/2021 Last Documented On 3 1:37PM ; [facility] Unemployed 12/12/2021 Last Documented On 3 1:37PM ; [facility], [facility] Tobacco use 06/27/2014 Last Documented On 2 2:52PM ; [facility] Smoking status : Current everyday smoker 06/27/2014 Last Documented On 2 2:52PM ; [facility], [facility] Alcohol use 06/27/2014 Last Documented On 2 2:52PM ; [facility] Current smoker 06/27/2014 Last Documented On 2 2:52PM ; [facility], [facility] No caffeine use 06/27/2014 Last Documented On 2 2:52PM ; [facility] No recent change in diet 06/27/2014 Last Documented On 2 2:52PM ; [facility] Not exercising regularly 06/27/2014 Last Documented On 2 2:52PM ; [facility], [facility] Not using drugs 06/27/2014 Last Documented On 2 2:52PM ; [facility], [facility] Procedures and Surgical History Includes: Procedures from this encounter Procedures Code Diagnosis Performing Provider Service L ocation Service Date intervention and counseling on cessation of tobacco use 4000F Last Documented On 2 3:18PM ; [facility], [facility] pharmacologic therapy for cessation of tobacco u se 4001F Last Documented On 2 2:52PM ; [facility], [facility] use of tobacco assessment performed 1000F Last Documented On 2 3:18PM ; [facility], [facility] no influenza immunization patient refuse d Last Documented On 2 3:18PM ; [facility] follow-up visit in one month with PCP fo r elevated BP Last Documented On 2 3:18PM ; [facility] Medical History Includes: Medical History addressed during this encounter Description Last Updated No recent immunization for flu 2 Last Documented On 3 1:37PM ; [facility] No recent immunization for pneumococcal pneumonia 12/12/2021 Last Documented On 3 1:37PM ; [facility], [facility] Intermittent hypertension 04/22/2019 Last Documented On 2 2:52PM ; [facility] History of depression 04/22/2019 Last Documented On 2 2:52PM ; [facility], [facility] gall bladder, wisdom teeth 06/27/2014 Last Documented On 2 2:52PM ; [facility], [facility] Arthritic joint problems 06/27/2014 Last Documented On 2 2:52PM ; [facility], [facility] History of diabetes mellitus 06/27/2014 Last Documented On 2 2:52PM ; [facility], [facility] History of gastric ulcer 06/27/2014 Last Documented On 2 2:52PM ; [facility], [facility] Family History Includes: Family History addressed during this encounter Description Last Updated Family history of hypertension Last Documented On 2 2:52PM ; [facility], [facility] non-contributory 06/27/2014 Last Documented On 2 2:52PM ; [facility], [facility] Review of Systems Includes: Review of Systems from this encounter Systemic: Feeling tired. No recent weight loss and no recent weight gain. No edema. Head: No headache and no sinus pain. Eyes: No vision problems and no glaucomatous visual field defect. Otolaryngeal: No hearing loss and no tinnitus. No nasal symptoms. Cardiovascular: No chest pain or discomfort and no palpitations. Pulmonary: No daytime asthma symptoms, no cough, and no chronic cough. No wheezing. Gastrointestinal: Heartburn. No abdominal pain. Endocrine: No hot flashes and no muscle weakness. Hematologic: No easy bleeding and no tendency for easy bruising. Musculoskeletal: No lower back pain. No soft tissue swelling and no localized joint pain. Neurological: No dizziness, no convulsions, and no numbness. Psychological: No anxiety and no emotional lability. Depression and insomnia. Not crying for no reason. Skin: No rash and no ulcers. Allergic and Immunologic: Complaint of seasonal allergic reaction. Mental Status Includes: Mental Status from this encounter Description No anxiety Functional Status Includes: Functional Status from this encounter No Functional Status Recorded Physical Exam Includes: Physical Exam from this encounter Allergies Includes: Active Allergies No Known Allergies Encounters Encounter Provider Location Date Check-In Time Check- Out Time Diagnosis [facility] Insurance Includes: Active Insurance Policies Plan Name Member ID Group # Subscriber Relationship Effect margarito Dates 1 - [facility] [id number] Gonzalo Russell Self 03/13/2022 - Unknown Clinical Notes Includes: Clinical Notes from this encounter * Progress note Date Encounter Last Documented by 12/12/2021 Follow Up Last documented on 11/02/2022; 1:37 PM, Emanuel Villa MD; [facility], [facility] Active Problems & Conditions - Bone Pain in the Heel - Lower Back Pain Chief Complaint The Chief Complaint is: Low back pain. Reason For Visit Referred by self. Referred Here Referred by Self. And previously treated by:Dr Chang. History of Present Illness Gonzalo Russell is a 46 year old male. - Allergy list reviewed - Problem list reviewed - Medication reconciliation performed - Medication list reviewed - Medication list reviewed with patient Patient is here today with complaints of mainly low back pain he was last seen 3 years ago he has difficulty standing for more than 10 to 15 minutes he did undergo weight loss surgery and had a gastric sleeve at 1 point his weight was up to 582 he says he is down to 498. He denies any bowel or bladder issues with this. He does have some pain with extension Current Medication - ARIPiprazole 5 MG Oral Tablet 30 days, 0 refills - Atorvastatin Calcium 40 MG Oral Tablet 90 days, 0 refills - Furosemide 40 MG Oral Tablet 90 days, 0 refills - Lisinopril-hydroCHLOROthiazide 20-25 MG Oral Tablet 90 days, 0 refills - metFORMIN HCl 1000 MG Oral Tablet 90 days, 0 refills - Metoclopramide HCl 10 MG Oral Tablet 30 days, 0 refills - Omeprazole 40 MG Oral Capsule Delayed Release 90 days, 0 refills - Potassium Chloride 20 MEQ Oral Packet 90 days, 0 refills - Venlafaxine HCl ER 150 MG Oral Capsule Extended Release 24 Hour 30 days, 0 refills - Xarelto 20 MG Oral Tablet 90 days, 0 refills Past Medical/Surgical History Reported: Medical: Arthritic joint problems. Intermittent hypertension. Immunization History: No recent immunization for flu and not for pneumococcal pneumonia. Diagnoses: Gastric ulcer. Diabetes mellitus. Depression Gall bladder, wisdom teeth. Social History Current diet: No recent change in diet. Caffeine use: No caffeine use. Tobacco use: Current smoker, smoker, and smoking status: Current everyday smoker. Alcohol: Alcohol use. Drug Use: Not using drugs. Habits: Not exercising regularly. Work: Unemployed. Allergies - No Known Allergies Family History Non-contributory Systemic hypertension Review Of Systems Systemic: Feeling tired. No recent weight loss and no recent weight gain. No edema. Head: No headache and no sinus pain. Eyes: No vision problems and no glaucomatous visual field defect. Otolaryngeal: No hearing loss and no tinnitus. No nasal symptoms. Cardiovascular: No chest pain or discomfort and no palpitations. Pulmonary: No daytime asthma symptoms, no cough, and no chronic cough. No wheezing. Gastrointestinal: Heartburn. No abdominal pain. Endocrine: No hot flashes and no muscle weakness. Hematologic: No easy bleeding and no tendency for easy bruising. Musculoskeletal: No lower back pain. No soft tissue swelling and no localized joint pain. Neurological: No dizziness, no convulsions, and no numbness. Psychological: No anxiety and no emotional lability. Depression and insomnia. Not crying for no reason. Skin: No rash and no ulcers. Allergic and Immunologic: Complaint of seasonal allergic reaction. Physical Findings - Vitals taken 12/12/2021 02:53 pm mg BP-Sitting 142/92 mmHg Pulse Rate-Sitting 89 bpm Height 72 in Weight 498 lbs Body Mass Index 67.5 kg/m2 Body Surface Area 3.1 m2 Standard Measurements: - Patient was overweight. Patient is obese Tender in the lower lumbar back pain with extension He has 5 out of 5 EHL gastroc quadricep tibialis anterior strength bilaterally Negative straight leg raise bilaterally 1+ patellar reflexes bilaterally Achilles reflexes were blunted bilaterally Tests MRI lumbar spine does show edema in the space between the L3-L4 spinous process was not commented on by the radiologist Assessment L3-L4 spinous process edema Therapy - Intervention and counseling on cessation of tobacco use. - Follow-up visit in one month with PCP for elevated BP. Counseling/Education - Instructions for patient See PCP for BP and Weight - Lose weight - Self-help group - smoking cessation Plan patient was seen by myself and Dr. Allen Foote PA-C. Patient will follow up 4 weeks after he tries interspinous process injection at L3-L4 no surgery would be needed for him Notes This dictation was done with voice recognition software and may contain errors and omissions. Practice Management Use of tobacco assessment performed and pharmacologic therapy for cessation of tobacco use; No influenza immunization patient refused. Care Team - ZI CHANG DPM - Water Pump Installer - TRELL BECKWITH MD
--- OUTSIDE RECORDS SUMMARY | 2024-02-18 12:12 | XMS_ITS | Clinical Summary ---
Author Organization [facility] , [facility] Address [address] [place] [address] Phone Care Team Providers Care Aerospace Stress Engineer Name Role Phone Allen RUSH, Emanuel Maurice Unavailable [phone] TRELL BECKWITH MD Unavailable [phone] ZI SUE DPM Unavailable [phone] Petty Frost PA-C Primary Care Provider [phone] Reason for Visit and Chief Complaint Epidural Steroid Injection Problems Includes: Problems addressed during this encounter and other active Problems All Visits Onset Date Resolved Date Provider Condition S tatus Lower Back Pain 04/22/2019 Emanuel Villa MD Act margarito Last Documented On 9 11:03AM ; [facility], [facility] Bone Pain in the Heel 06/27/2014 Randy NULLM Active Last Documented On 4 1:06PM ; [facility] Plan of Treatment No Plan of Treatment Recorded Assessments Includes: Assessments from this encounter No Assessments Recorded Medical Equipment - Implanted Devices Includes: Current Devices No Medical Equipment Recorded Medications Includes: Medications discussed during this encounter and other current Medications Current Medications (continue as prescribed) Xarelto 20 MG Oral Tablet 11/16/2021 Provider: Diagnosis: Last Documented On 2 3:17PM By Estrellita Vázquez ; [facility], [facility] Metoclopramide HCl 10 MG Oral Tablet 04/21/2019 Prov ider: Chintan Aguayo MD Diagnosis: Last Documented On 9 4:08PM By Daniel Mo ; [facility], [facility] Atorvastatin Calcium 40 MG Oral Tablet 04/21/2019 Pr ovider: Diagnosis: Last Documented On 9 4:08PM By Daniel Mo ; [facility], [facility] Furosemide 40 MG Oral Tablet 04/21/2019 Provider: Diagnosis: Last Documented On 9 4:09PM By Daniel Mo ; [facility], [facility] Potassium Chloride 20 MEQ Oral Packet 04/21/2019 Pro vider: Diagnosis: Last Documented On 9 4:09PM By Daniel Mo ; [facility], [facility] Omeprazole 40 MG Oral Capsul e Delayed Release 04/21/2019 Provider: Chintan Aguayo MD Diagnosis: Last Documented On 9 4:10PM By Daniel Mo ; [facility], [facility] ARIPiprazole 5 MG Oral Tablet 04/14/2019 Provider: Diagnosis: Last Documented On 9 4:10PM By Daniel Mo ; [facility], [facility] Venlafaxine HCl ER 150 MG Or al Capsule Extended Release 24 Hour 03/31/2019 Provider: Diagnosis: Last Documented On 9 4:10PM By Daniel Mo ; [facility], [facility] metFORMIN HCl 1000 MG Oral Tablet 03/10/2019 Provide r: Chintan Aguayo MD Diagnosis: Last Documented On 9 4:10PM By Daniel Mo ; [facility], [facility] Lisinopril-hydroCHLOROthiazi de 20-25 MG Oral Tablet 03/04/2019 Provider: TRELL BECKWITH MD Diagnosis: Last Documented On 9 4:10PM By Daniel Mo ; [facility], [facility] Medications Administered Includes: Administered Medications from this encounter No Administered Medications Recorded Results Includes: Results discussed during this encounter No Results Recorded For Specified Dates History of Present Illness Includes: History of Present Illness from this encounter No History of Present Illness Recorded Social History No Social History Recorded - Smoking Status Unknown Medical History Includes: Medical History addressed during this encounter No Medical History Recorded Family History Includes: Family History addressed during this encounter No Family History Recorded Review of Systems Includes: Review of Systems from this encounter No Review of Systems Recorded Mental Status Includes: Mental Status from this encounter No Mental Status Recorded Functional Status Includes: Functional Status from this encounter No Functional Status Recorded Physical Exam Includes: Physical Exam from this encounter No Physical Exam Recorded Allergies Includes: Active Allergies No Known Allergies Encounters Encounter Provider Location Date Check-In Time Check-Out Time Diagnosis Epidural Steroid Injection Emanuel Vilal MD [facility] 03/26/20 22 11:04AM 11:54AM Insurance Includes: Active Insurance Policies Plan Name Member ID Group # Subscriber Relationship Effect margarito Dates 1 - [facility] [id number] Gonzalo Ng 03/13/2022 - Unknown Clinical Notes Includes: Clinical Notes from this encounter No Clinical Notes Recorded
--- OUTSIDE RECORDS SUMMARY | 2024-02-18 12:12 | XMS_ITS | Clinical Summary ---
Author Organization [facility] , [facility] Address [address] [place] [address] Phone Care Team Providers Care Cosmetology Teacher Name Role Phone Allen RUSH, Emanuel Maurice Unavailable [phone] TRELL BECKWITH MD Unavailable [phone] ZI SUE DPM Unavailable [phone] Petty Frost PA-C Primary Care Provider [phone] Reason for Visit and Chief Complaint Epidural Steroid Injection Problems Includes: Problems addressed during this encounter and other active Problems All Visits Onset Date Resolved Date Provider Condition S tatus Lower Back Pain 04/22/2019 Emanuel Villa MD Act margarito Last Documented On 9 11:03AM ; [facility], [facility] Bone Pain in the Heel 06/27/2014 Randy NULLM Active Last Documented On 4 1:06PM ; [facility] Plan of Treatment No Plan of Treatment Recorded Assessments Includes: Assessments from this encounter No Assessments Recorded Medical Equipment - Implanted Devices Includes: Current Devices No Medical Equipment Recorded Medications Includes: Medications discussed during this encounter and other current Medications Current Medications (continue as prescribed) Xarelto 20 MG Oral Tablet 11/16/2021 Provider: Diagnosis: Last Documented On 2 3:17PM By Estrellita Vázquez ; [facility], [facility] Metoclopramide HCl 10 MG Oral Tablet 04/21/2019 Prov ider: Chintan Aguayo MD Diagnosis: Last Documented On 9 4:08PM By Daniel Mo ; [facility], [facility] Atorvastatin Calcium 40 MG Oral Tablet 04/21/2019 Pr ovider: Diagnosis: Last Documented On 9 4:08PM By Daniel Mo ; [facility], [facility] Furosemide 40 MG Oral Tablet 04/21/2019 Provider: Diagnosis: Last Documented On 9 4:09PM By Daniel Mo ; [facility], [facility] Potassium Chloride 20 MEQ Oral Packet 04/21/2019 Pro vider: Diagnosis: Last Documented On 9 4:09PM By Daniel Mo ; [facility], [facility] Omeprazole 40 MG Oral Capsul e Delayed Release 04/21/2019 Provider: Chintan Aguayo MD Diagnosis: Last Documented On 9 4:10PM By Daniel Mo ; [facility], [facility] ARIPiprazole 5 MG Oral Tablet 04/14/2019 Provider: Diagnosis: Last Documented On 9 4:10PM By Daniel Mo ; [facility], [facility] Venlafaxine HCl ER 150 MG Or al Capsule Extended Release 24 Hour 03/31/2019 Provider: Diagnosis: Last Documented On 9 4:10PM By Daniel Mo ; [facility], [facility] metFORMIN HCl 1000 MG Oral Tablet 03/10/2019 Provide r: Chintan Aguayo MD Diagnosis: Last Documented On 9 4:10PM By Daniel Mo ; [facility], [facility] Lisinopril-hydroCHLOROthiazi de 20-25 MG Oral Tablet 03/04/2019 Provider: TRELL BECKWITH MD Diagnosis: Last Documented On 9 4:10PM By Daniel Mo ; [facility], [facility] Medications Administered Includes: Administered Medications from this [...] Check-Out Time Diagnosis Epidural Steroid Injection Emanuel Villa MD 03/26/2022 12:08PM 11:59PM Insurance Includes: Active Insurance Policies Plan Name Member ID Group # Subscriber Relationship Effect margarito Dates 1 - [facility] [id number] Gonzalo Russell Hernandez 03/13/2022 - Unknown Clinical Notes Includes: Clinical Notes from this encounter No Clinical Notes Recorded
--- OUTSIDE RECORDS SUMMARY | 2024-02-18 12:12 | XMS_ITS | Clinical Summary ---
Author Organization [facility] Address [address] [place] [address] Phone Care Team Providers Care Ophthalmic Aide Name Role Phone Allen RUSH, Emanuel Maurice Unavailable [phone] TRELL BECKWITH MD Unavailable [phone] ZI SUE DPM Unavailable [phone] Petty Frost PA-C Primary Care Provider [phone] Reason for Visit and Chief Complaint Epidural Steroid Injection Problems Includes: Problems addressed during this encounter and other active Problems All Visits Onset Date Resolved Date Provider Condition S tatus Lower Back Pain 04/22/2019 Emanuel Villa MD Act margarito Last Documented On 9 11:03AM ; [facility] Bone Pain in the Heel 06/27/2014 Randy NULLM Active Last Documented On 4 1:06PM ; [facility] Plan of Treatment No Plan [...] On 2 3:17PM By Estrellita Vázquez ; [facility] Metoclopramide HCl 10 MG Oral Tablet 04/21/2019 Prov ider: Chintan Aguayo MD Diagnosis: Last Documented On 9 4:08PM By Daniel Mo ; [facility] Atorvastatin Calcium 40 MG Oral Tablet 04/21/2019 Pr ovider: Diagnosis: Last Documented On 9 4:08PM By Daniel Mo ; [facility] Furosemide 40 MG Oral Tablet 04/21/2019 Provider: Diagnosis: Last Documented On 9 4:09PM By Daniel Mo ; [facility] Potassium Chloride 20 MEQ Oral Packet 04/21/2019 Pro vider: Diagnosis: Last Documented On 9 4:09PM By Daniel Mo ; [facility] Omeprazole 40 MG Oral Capsul e Delayed Release 04/21/2019 Provider: Chintan Aguayo MD Diagnosis: Last Documented On 9 4:10PM By Daniel Mo ; [facility] ARIPiprazole 5 MG Oral Tablet 04/14/2019 Provider: Diagnosis: Last Documented On 9 4:10PM By Daniel Mo ; [facility] Venlafaxine HCl ER 150 MG Or al Capsule Extended Release 24 Hour 03/31/2019 Provider: Diagnosis: Last Documented On 9 4:10PM By Daniel Mo ; [facility] metFORMIN HCl 1000 MG Oral Tablet 03/10/2019 Provide r: Chintan Aguayo MD Diagnosis: Last Documented On 9 4:10PM By Daniel Mo ; [facility] Lisinopril-hydroCHLOROthiazi de 20-25 MG Oral Tablet 03/04/2019 Provider: TRELL BECKWITH MD Diagnosis: Last Documented On 9 4:10PM By Daniel Mo ; [facility] Medications Administered Includes: Administered Medications from [...] Diagnosis Epidural Steroid Injection Emanuel Villa MD 02/26/2022 4:24PM 11:59PM Insurance Includes: Active Insurance Policies Plan Name Member ID Group # Subscriber Relationship Effect margarito Dates 1 - [facility] [id number] Gonzalo Russell Hernandez 03/13/2022 - Unknown Clinical Notes Includes: Clinical Notes from this encounter No Clinical Notes Recorded
--- OUTSIDE RECORDS SUMMARY | 2024-02-18 12:12 | XMS_ITS | Clinical Summary ---
Author Organization [facility] , [facility] Address [address] [place] [address] Phone Care Team Providers Care Production Assembly Operator Name Role Phone Allen RUSH, Emanuel Maurice Unavailable [phone] TRELL BECKWITH MD Unavailable [phone] PAWCARL DPZI Blackman Unavailable [phone] Petty Frost PA-C Primary Care Provider [phone] [...] margarito Last Documented On 9 11:03AM ; [facility], [facility] Past Visits Onset Date Resolved Date Provider Condition Status Bone Pain in the Heel 06/27/2014 Randy Booth DPM Active Last Documented On 4 1:06PM ; [facility], [facility] Plan of Treatment - Weight loss diet - Last Documented On 11/09/2019 12:13PM ; [facility], [facility] Patient was seen by myself Chintan Foote [...] for a consult. - Last Documented On 11/09/2019 12:13PM ; [facility] Instructions to patient Instructions for patient See PCP for BP and Weight Last Documented On 9 4:12PM ; [facility] Lose weight Last Documented On 9 11:03AM ; [facility] Assessments Includes: Assessments from this encounter Findings Low back pain lumbar DDD - Last Documented On 11/09/2019 12:13PM ; [facility] Instructions Includes: Instructions from this encounter Instructions to patient Instructions for patient See PCP for BP and Weight Last Documented On 9 4:12PM ; [facility] Lose weight Last Documented On 9 11:03AM ; [facility] Medical Equipment - Implanted Devices Includes: Current Devices No Medical Equipment Recorded Medications Includes: Medications discussed during this encounter and other current Medications Discontinued / Stopped on this date on 06/27/2014 Lexapro 10 MG OR TABS Provider: Diagnosis: Last Documented On 9 4:08PM By Daniel Mo ; [facility] Lisinopril 10 MG OR TABS Provider: Diagnosis: Last Documented On 9 4:08PM By Daniel Mo ; [facility], [facility] metFORMIN HCl 500 MG TABS Provider: Diagnosis: Last Documented On 9 4:08PM By Daniel Mo ; [facility] Dexilant 30 MG OR CPDR Provider: Diagnosis: Last Documented On 9 4:08PM By Daniel Mo ; [facility], [facility] Current Medications (continue as prescribed) Xarelto 20 MG Oral Tablet 11/16/2021 Provider: Diagnosis: Last Documented On 2 3:17PM By Estrellita Vázquez ; [facility] Metoclopramide HCl 10 MG Oral Tablet 04/21/2019 Prov ider: Chintan Aguayo MD Diagnosis: Last Documented On 9 4:08PM By Daniel Mo ; [facility] Atorvastatin Calcium 40 MG Oral Tablet 04/21/2019 Pr ovider: Diagnosis: Last Documented On 9 4:08PM By Daniel Mo ; [facility], [facility] Furosemide 40 MG Oral Tablet 04/21/2019 Provider: Diagnosis: Last Documented On 9 4:09PM By Daniel Mo ; [facility], [facility] Potassium Chloride 20 MEQ Oral Packet 04/21/2019 Pro vider: Diagnosis: Last Documented On 9 4:09PM By Daniel Mo ; [facility], [facility] Omeprazole 40 MG Oral Capsul e Delayed Release 04/21/2019 Provider: Chintan Aguayo MD Diagnosis: Last Documented On 9 4:10PM By Daniel Mo ; [facility], [facility] ARIPiprazole 5 MG Oral Tablet 04/14/2019 Provider: Diagnosis: Last Documented On 9 4:10PM By Daniel Mo ; [facility], [facility] Venlafaxine HCl ER 150 MG Or al Capsule Extended Release 24 Hour 03/31/2019 Provider: Diagnosis: Last Documented On 9 4:10PM By Daniel Mo ; [facility], [facility] metFORMIN HCl 1000 MG Oral Tablet 03/10/2019 Provide r: Chintan Aguayo MD Diagnosis: Last Documented On 9 4:10PM By Daniel Mo ; [facility], [facility] Lisinopril-hydroCHLOROthiazi de 20-25 MG Oral Tablet 03/04/2019 Provider: TRELL BECKWITH MD Diagnosis: Last Documented On 9 4:10PM By Daniel Mo ; [facility], [facility] Past Medications on file Diclofenac Potassium 50 MG O R TABS 06/27/2014 - 07/27/2014 Provider: Randy DUMONT Diagnosis: be Last Documented On 4 1:34PM By Isa Avendano ; [facility], [facility] Medications Administered Includes: Administered Medications from this encounter No Administered Medications Recorded Vital Signs Includes: Vital Signs from this encounter Vital Name 04/22/2019 11:37A Blood Pressure Sitting R 150/90 Pulse Rate-Sitting (bpm) 94 Height (in) 73 Weight (lb) 512 Body Mass Index (kg/m2) 67.5 Body Surface Area (m2) 3.2 Pain Level 8 Note: lmp Last Documented: On 04/25/2019 11:20A M ; [facility], [facility] Results Includes: Results discussed during this encounter No Results Recorded For Specified Dates History of Present Illness Includes: History of Present Illness from this encounter SHEILA Russell is a 43 year old male. - Allergy list reviewed - Medication list reviewed with patient - Medication reconciliation performed - Previous history of new onset pain 2016 - Pain is constant (100% of the time) - Pain is throbbing Please rate pain on scale of 1 - 10: 8 Patient is here today with complaints of lower back pain he has had back pain for about 2 years he did physical therapy a few years ago but it made it worse complaint of pain that will come radiate into his buttocks when he does any standing or walking no other radicular symptoms he has had injections with pain management in [facility] as well as here in [place] he says the one in [place] did not do much for him but he has some sort of injection here in [place] which did help. he is not complaining of any numbness or tingling about her bladder problems Social History Description Last Updated Tobacco use 06/27/2014 Last Documented On 9 11:03AM ; [facility], [facility] Smoking status : Current everyday smoker 06/27/2014 Last Documented On 9 11:03AM ; [facility] Alcohol use 06/27/2014 Last Documented On 9 11:03AM ; [facility], [facility] Current smoker 06/27/2014 Last Documented On 9 11:03AM ; [facility] No caffeine use 06/27/2014 Last Documented On 9 11:03AM ; [facility], [facility] No recent change in diet 06/27/2014 Last Documented On 9 11:03AM ; [facility] Not exercising regularly 06/27/2014 Last Documented On 9 11:03AM ; [facility] Not using drugs 06/27/2014 Last Documented On 9 11:03AM ; [facility], [facility] Procedures and Surgical History Includes: Procedures from this encounter Procedures Code Diagnosis Performing Provider Service Location Service Date pharmacologic therapy for cessation of tobacco use 4001F Last Documented On 9 11:03AM ; [facility], [facility] Clinical summary provided to patient Last Documented On 9 4:12PM ; [facility] Medical History Includes: Medical History addressed during this encounter Description Last Updated Intermittent hypertension 04/22/2019 Last Documented On 0 12:13PM ; [facility] History of depression 04/22/2019 Last Documented On 0 12:13PM ; [facility] gall bladder, wisdom teeth 06/27/2014 Last Documented On 9 11:03AM ; [facility] Arthritic joint problems 06/27/2014 Last Documented On 9 11:03AM ; [facility] History of diabetes mellitus 06/27/2014 Last Documented On 9 11:03AM ; [facility] History of gastric ulcer 06/27/2014 Last Documented On 9 11:03AM ; [facility] Family History Includes: Family History addressed during this encounter Description Last Updated Family history of hypertension 9 Last Documented On 0 12:13PM ; [facility] non-contributory 06/27/2014 Last Documented On 9 11:03AM ; [facility], [facility] Review of Systems Includes: Review of Systems from this encounter Systemic: Feeling tired (fatigue). No recent weight loss and no recent [...] Location Date Check-In Time Check-Out Time Diagnosis Physician Specified Emanuel Villa MD [facility] 04/22/20 10:58AM 12:17PM Insurance Includes: Active Insurance Policies Plan Name Member ID Group # Subscriber Relationship Effect margarito Dates 1 - [facility] [id number] Gonzalo Russell Self 03/13/2022 - Unknown Clinical Notes Includes: Clinical Notes from this encounter No Clinical Notes Recorded
--- OUTSIDE RECORDS SUMMARY | 2024-02-18 12:12 | XMS_ITS ---
Author Organization [facility] Address [address] [place] [address] Phone Care Team Providers Care Licensed Esthetician Name Role Phone Allen RUSH, Emanuel Maurice Unavailable [phone] TRELL BECKWITH MD Unavailable [phone] PAWCARL DPYehuda, ZI Unavailable [phone] Petty Frost PA-C Primary Care Provider [phone] Problems Includes: Active, inactive, and resolved Problems All Visits Onset Date Resolved Date Provider Condition S tatus Lower Back Pain 04/22/2019 Emanuel Villa MD Act margarito Last Documented On 9 11:03AM ; [facility] Bone Pain in the Heel 06/27/2014 Randy Booth DPM Active Last Documented On 4 1:06PM ; [facility] Plan of Treatment Findings Encounter Date Ordered weight loss diet Physician Specified [facility] Emanuel Villa MD 04/22/2019 Last Documented On 0 12:13PM ; [facility] Ordered weight loss diet NEW PATIENT with Randy Booth DPM 06/27/2014 Last Documented On 4 1:30PM ; [facility] Instructions to patient Instructions for patient See PCP for BP and Weight Last Documented On 2 2:52PM ; [facility] Intervention and counseling on cessation of tobacco use Last Documented On 2 3:18PM ; [facility] Lose weight Last Documented On 2 2:52PM ; [facility] Instructions for patient See PCP for BP and Weight Last Documented On 9 4:12PM ; [facility] Lose weight Last Documented On 9 11:03AM ; [facility] Intervention and counseling on cessation of tobacco use Last Documented On 4 1:00PM ; [facility] Lose weight Last Documented On 4 1:00PM ; [facility] Assessments Includes: Assessments for all patient encounters No Assessments Recorded Instructions Includes: Instructions for all patient encounters Instructions to patient Instructions for patient See PCP for BP and Weight Last Documented On 2 2:52PM ; [facility] Intervention and counseling on cessation of tobacco use Last Documented On 2 3:18PM ; [facility] Lose weight Last Documented On 2 2:52PM ; [facility] Instructions for patient See PCP for BP and Weight Last Documented On 9 4:12PM ; [facility] Lose weight Last Documented On 9 11:03AM ; [facility] Intervention and counseling on cessation of tobacco use Last Documented On 4 1:00PM ; [facility] Lose weight Last Documented On 4 1:00PM ; [facility] Medical Equipment - Implanted Devices Includes: Current and historical Devices No Medical Equipment Recorded Medications Includes: Current and historical Medications Current Medications (continue as prescribed) Xarelto 20 MG Oral Tablet 11/16/2021 Provider: Diagnosis: Last Documented On 2 3:17PM By Estrellita Vázquez ; [facility] Metoclopramide HCl 10 MG Oral Tablet 04/21/2019 Prov ider: Chintan Aguayo MD Diagnosis: Last Documented On 9 4:08PM By Daniel [facility] Atorvastatin Calcium 40 MG Oral Tablet 04/21/2019 Pr ovider: Diagnosis: Last Documented On 9 4:08PM By Daniel Mo ; [facility] Furosemide 40 MG Oral Tablet 04/21/2019 Provider: Diagnosis: Last Documented On 9 4:09PM By Daniel Mo ; [facility] Potassium Chloride 20 MEQ Oral Packet 04/21/2019 Pro vider: Diagnosis: Last Documented On 9 4:09PM By Daniel Mo ; [facility], [facility] Omeprazole 40 MG Oral Capsul e Delayed Release 04/21/2019 Provider: Chintan Aguayo MD Diagnosis: Last Documented On 9 4:10PM By Daniel Mo ; [facility] ARIPiprazole 5 MG Oral Tablet 04/14/2019 Provider: Diagnosis: Last Documented On 9 4:10PM By Daniel Mo ; [facility], [facility] Venlafaxine HCl ER 150 MG Or al Capsule Extended Release 24 Hour 03/31/2019 Provider: Diagnosis: Last Documented On 9 4:10PM By Daniel Mo ; [facility] metFORMIN HCl 1000 MG Oral Tablet 03/10/2019 Provide r: Chintan Aguayo MD Diagnosis: Last Documented On 9 4:10PM By Daniel Mo ; [facility], [facility] Lisinopril-hydroCHLOROthiazi de 20-25 MG Oral Tablet 03/04/2019 Provider: TRELL BECKWITH MD Diagnosis: Last Documented On 9 4:10PM By Daniel Mo ; [facility], [facility] Past Medications on file Lexapro 10 MG OR TABS 06/27/2014 - 04/22/2019 Provider : Diagnosis: Last Documented On 9 4:08PM By Daniel Mo ; [facility] Lisinopril 10 MG OR TABS 06/27/2014 - 04/22/2019 Provi vincent: Diagnosis: Last Documented On 9 4:08PM By Daniel Mo ; [facility] metFORMIN HCl 500 MG TABS 06/27/2014 - 04/22/2019 Prov ider: Diagnosis: Last Documented On 9 4:08PM By Daniel Mo ; [facility] Dexilant 30 MG OR CPDR 06/27/2014 - 04/22/2019 Provide r: Diagnosis: Last Documented On 9 4:08PM By Daniel Mo ; [facility] Diclofenac Potassium 50 MG O R TABS 06/27/2014 - 07/27/2014 Provider: Randy DUMONT Diagnosis: be Last Documented On 4 1:34PM By Isa Avendano ; [facility], [facility] Medications Administered Includes: Administered Medications in patient's chart No Administered Medications Recorded Results Includes: Results from 02/17/2023 through 02/18/2024 No Results Recorded For Specified Dates History of Present Illness History of Present Illness not supported for this document type No History of Present Illness Recorded Social History Description Last Updated Smoker 12/12/2021 Last Documented On 3 1:37PM ; [facility] Unemployed 12/12/2021 Last Documented On 3 1:37PM ; [facility] Tobacco use 06/27/2014 Last Documented On 4 1:30PM ; [facility] Smoking status : Current everyday smoker 06/27/2014 Last Documented On 4 1:30PM ; [facility] Alcohol use 06/27/2014 Last Documented On 4 1:30PM ; [facility] Current smoker 06/27/2014 Last Documented On 4 1:30PM ; [facility], [facility] No caffeine use 06/27/2014 Last Documented On 4 1:30PM ; [facility] No recent change in diet 06/27/2014 Last Documented On 4 1:30PM ; [facility] Not exercising regularly 06/27/2014 Last Documented On 4 1:30PM ; [facility] Not using drugs 06/27/2014 Last Documented On 4 1:30PM ; [facility] Medical History Includes: Medical History in patient's chart Description Last Updated No recent immunization for flu 2 Last Documented On 3 1:37PM ; [facility], [facility] No recent immunization for pneumococcal pneumonia 12/12/2021 Last Documented On 3 1:37PM ; [facility], [facility] Intermittent hypertension 04/22/2019 Last Documented On 0 12:13PM ; [facility] History of depression 04/22/2019 Last Documented On 0 12:13PM ; [facility] gall bladder, wisdom teeth 06/27/2014 Last Documented On 4 1:30PM ; [facility] Arthritic joint problems 06/27/2014 Last Documented On 4 1:30PM ; [facility] History of diabetes mellitus 06/27/2014 Last Documented On 4 1:30PM ; [facility] History of gastric ulcer 06/27/2014 Last Documented On 4 1:30PM ; [facility] Family History Includes: Family History in patient's chart Description Last Updated Family history of hypertension 9 Last Documented On 0 12:13PM ; [facility] non-contributory 06/27/2014 Last Documented On 4 1:30PM ; [facility] Review of Systems Review of Systems not supported for this document type No Review of Systems Recorded Mental Status No Mental Status Recorded Functional Status No Functional Status Recorded Physical Exam Physical Exam not supported for this document type No Physical Exam Recorded Allergies Includes: Active, inactive, and resolved Allergies No Known Allergies Insurance Includes: Active Insurance Policies Plan Name Member ID Group # Subscriber Relationship Effect margarito Dates 1 - [facility] [id number] Gonzalo Russell Self 03/13/2022 - Unknown Clinical Notes Includes: Signed Clinical Notes starting from 06/26/2022 No Clinical Notes Recorded
--- NOTE | 2024-02-18 13:44 | ECG_ITS ---
APPROVED REPORT Exam: Resting ECG HR:131 bpm ECG Measurements Heart Rate 131 AXES QRSd 145 QRS 229 QT 331 T 212 QTc 408 Conclusion ATRIAL FIBRILLATION WITH RAPID VENTRICULAR RESPONSE RIGHT AXIS DEVIATION [QRS AXIS > 100] INTRAVENTRICULAR CONDUCTION DELAY [130+ ms QRS DURATION] ABNORMAL ECG UNCONFIRMED REPORT Electronically signed by : Asad Judge MD 02/19/2024 14:38:51
--- NOTE | 2024-02-18 14:09 | XR_ITS ---
FINAL REPORT CLINICAL HISTORY: CHF, COPD COMPARISON: 07/30/2021 FINDINGS: A single portable view of the chest was obtained. The heart size is enlarged. There is mild pulmonary vascular congestion which is partially improved compared to the prior study. The mediastinum is within normal limits. There are partially improved mild bibasilar opacities favored to represent atelectasis. The bony thorax is intact. IMPRESSION: Cardiomegaly and partially improved mild pulmonary vascular congestion. Mild bibasilar opacities favored to represent atelectasis. Reviewed, Interpreted and Dictated by Rohith Fuentes III, MD Transcribed by Iveth Webster Authenticated and [facility]
[2024-02-18 14:10] LABS: Basophils # 0.1 K/mm3 (0-0.2); Basophils % 0.5 % (0.1-2.0); Eosinophils # 0.1 K/mm3 (0.0-0.4); Eosinophils % 1.1 % (0.1-12.0); Hematocrit 45.9 % (42.0-52.0); Hemoglobin 15.1 g/dL (14.1-18.0); Lymphocytes # 1.7 K/mm3 (0.7-4.5); Lymphocytes % 18.4 % (10-50); Mean Corpuscular HGB Conc 32.9 g/dL (31.8-35.4); Mean Corpuscular Hemoglobin 27.8 pg (27.0-31.2); Mean Corpuscular Volume 84.7 fl (80-94); Mean Platelet Volume 8.1 fl (7.4-10.4); Monocytes # 0.6 K/mm3 (0.1-1.0); Monocytes % 6.7 % (1.7-9.3); Neutrophils % 73.4 % (37.0-80.0); Platelet Count 224 K/mm3 (142-424); Red Blood Count 5.41 M/mm3 (4.60-6.20); Red Cell Distribution Width 15.2 % (11.5-17.5); White Blood Count 9.5 K/mm3 (4.8-10.8)
[2024-02-18 14:12] LABS: Albumin Level 4.2 g/dl (3.5-5.0); Chloride 101 mmol/L (98-107)
[2024-02-18 14:13] LABS: Potassium 3.9 mmoL/L (3.5-5.1); Sodium 135 mmol/L (136-145)
[2024-02-18 14:15] LABS: Blood Urea Nitrogen 16 mg/dl (9-20); Creatinine Clearance Estimated 145 mL/min (50-200); Estimated Glomerular Filt Rate 121 ml/min (>60); GFR (African American) 147 ML/MIN (>60)
[2024-02-18 14:16] LABS: Alanine Aminotransferase 30 U/L (12-78); Albumin/Globulin Ratio 1.1 (1.1-1.8); Alkaline Phosphatase 59 U/L (38-126); Anion Gap 10.9 mEq/L (5-15); Aspartate Amino Transferase 26 U/L (17-59); Bilirubin,Total 1.4 mg/dl (0.2-1.3); Calcium 9.1 mg/dl (8.4-10.2); Carbon Dioxide 27 mmol/L (22.0-30.0); Globulin 3.8 g/dL (1.3-3.2); Glucose 110 mg/dl (74-100); Magnesium 1.4 mg/dl (1.6-2.3)
--- NOTE | 2024-02-18 14:19 | HMH.PHAINT1 ---
Pharmacy Intervention Comments: HOME MEDICATION LIST VERIFIED USING LIST FROM HOME PHARMACY AND PT INTERVIEW
--- NOTE | 2024-02-18 14:32 | P.CONCA_ITS ---
History of Present Illness History of Present Illness Consult date: 02/18/24 Requesting physician: Morelia Mcfarland Consult reason: atrial fibrillation Chief complaint: palpitations History of present illness: 48-year-old white male established patient of our office with history of paroxysmal atrial fibrillation and morbid obesity with a BMI of 66. He had an echo in 2021 which showed biatrial dilation and LV dilation with a normal EF. Patient was seen in the office today. On evaluation he was found to be up 26 pounds from the visit prior which he states is due to dietary indiscretion. He was complaining of palpitations chest discomfort and diaphoresis and was found to be in A-fib RVR, 140s so he was direct admitted to the hospital. I am seeing the patient on the floor he is resting comfortably in a chair no distress and is asymptomatic at the time. Telemetry still shows heart rate 140s. He has no peripheral edema, normal blood pressure and O2 is 98% on room air. Patient reports he had been taking GLP-1 but had to stop for a while due to insurance issue. He has untreated obstructive sleep apnea. [facility] Disclaimer: The information contained in this section may have been updated after the patient was seen, as this information can be updated by other users. 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 Tachycardia Bilateral knee pain DDD (degenerative disc disease), lumbar Depression Morbid obesity with body mass index of 70 and over in adult CHF (congestive heart failure) COPD (chronic obstructive pulmonary disease) Diabetes Dyspnea BMI 60.0-69.9, adult Obesity Anxiety disorder Hypertension Diabetes type 2, uncontrolled Surgical History S/P gastric sleeve procedure History of gastric bypass Social History Smoking Status: Never smoker alcohol intake: former year quit: 2021 counseling given: Yes counseling provided: provider counseling substance use type: denies use current occupational status: unemployed and disabled Travel in the last 8 weeks: None household members: spouse and children housing: house marital status: number of children: 1 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 current occupational exposures/hazards: No pets and animals: Yes pets and animals: cat(s) diet: other caffeine: Yes physical activity: none Review of Systems Constitutional Constitutional: Reports fatigue and Denies weakness Eyes Eyes: Denies loss of vision ENT Ears, Nose, Mouth, and Throat: Denies hearing loss and Denies vertigo *Cardiovascular Cardiovascular: Denies chest pain, Denies dyspnea, Reports irregular heart rhythm, Reports rapid heart rate and Denies syncope *Respiratory Respiratory: Denies cough and Denies dyspnea *Gastrointestinal Gastrointestinal: Denies change in stool character, Denies nausea and Denies vomiting *Genitourinary Genitourinary: Denies difficulty urinating *Musculoskeletal Musculoskeletal: Denies muscle weakness Integumentary/Breasts Skin/Breast: Denies changing lesions *Neurologic Neurologic: Denies loss of vision, Denies syncope, Denies vertigo and Denies weakness Endocrine Endocrine: Reports fatigue Exam Data for Last 24 hours Vital signs and Labs for Last 24 Hours: Pulse Pulse Ox O2 Del Method 140 H 94 L Room Air 02/18/24 12:20 02/18/24 12:20 02/18/24 13:00 Laboratory Results - last 24 hr 02/18/24 13:56: WBC 9.5, RBC 5.41, Hgb 15.1, Hct 45.9, MCV 84.7, MCH 27.8, MCHC 32.9, RDW 15.2, Plt Count 224, MPV 8.1, Neut % (Auto) 73.4, Lymph % (Auto) 18.4, [place] % (Auto) 6.7, Eos % (Auto) 1.1, Baso % (Auto) 0.5, Neut # (Auto) 7.0, Lymph # (Auto) 1.7, [place] # (Auto) 0.6, Eos # (Auto) 0.1, Baso # (Auto) 0.1, Sodium 135 L, Potassium 3.9, Chloride 101, Carbon Dioxide 27, Anion Gap 10.9, BUN 16, Creatinine 0.70, Estimated Creat Clear 145, Estimated GFR 121, Est GFR ( Amer) 147, Glucose 110 H, Calcium 9.1, Magnesium 1.4 L, Total Bilirubin 1.4 H, AST 26, ALT 30, Alkaline Phosphatase 59, Total Protein 8.0, Albumin 4.2, Globulin 3.8 H, Albumin/Globulin Ratio 1.1 I & O for Last 24 hours: Intake & Output 02/15/24 02/16/24 02/17/24 02/18/24 23:59 23:59 23:59 23:59 Weight 489 lb Constitutional Constitutional: no acute distress, obese and cooperative *Routine HEENT Exam Eye: Present PERRL *Routine Respiratory Exam Respiratory: Present CTA bilaterally; Absent accessory muscle use, wheezes or crackles *Routine Cardiovascular Exam Cardiovascular: Present RRR, Normal S1, Normal S2, tachycardia and irregularly irregular; Absent murmur, gallop or rubs *Routine Abdominal Exam Abdominal: Present soft; Absent tenderness *Routine Extremities Exam Extremities: Present pulses intact; Absent cyanosis or edema *Routine Skin Exam Skin: Present intact; Absent erythema or wounds *Routine Neurological Exam Neurological: Present alert and oriented X3 Routine Psychiatric Exam Psychiatric: Present cooperative Meds Home Medications and Allergies Home Medications ?Medication ?Instructions ?Recorded ?Confirmed ?Type spironolactone 50 mg tablet 50 mg PO DAILY #90 tabs 09/02/23 02/18/24 Rx pen needle, diabetic 32 gauge x #100 ea 09/16/23 01/25/24 Rx 5/32 (Comfort EZ Pen [place]) insulin aspar prt-insulin aspart 65 unit SQ TID 01/19/24 02/18/24 History 100 unit/mL (70-30) subcutaneous soln (Novolog Mix 70-30 U-100 Insuln) cariprazine 3 mg capsule (Vraylar) 3 mg PO DAILY #90 caps 01/27/24 02/18/24 Rx atorvastatin 40 mg tablet 40 mg PO HS 02/18/24 02/18/24 History bisoprolol fumarate 5 mg tablet 5 mg PO BID 02/18/24 02/18/24 History furosemide 40 mg tablet 40 mg PO DAILY 02/18/24 02/18/24 History gabapentin 600 mg tablet 600 mg PO TID 02/18/24 02/18/24 History hydrocodone 10 mg-acetaminophen 1 tab PO TIDP PRN pain 02/18/24 02/18/24 History 325 mg tablet insulin syringe-needle U-100 1 mL #10 ea 02/18/24 02/18/24 History 30 gauge x 1/2 (BD Insulin Syringe Ultra-Fine) lorazepam 1 mg tablet 1 mg PO DAILYP PRN XIETY 02/18/24 02/18/24 History metformin 1,000 mg tablet 1,000 mg PO BID 02/18/24 02/18/24 History metoclopramide HCl 10 mg tablet 10 mg PO QID 02/18/24 02/18/24 History omeprazole 40 mg capsule,delayed 40 mg PO HS 02/18/24 02/18/24 History release rivaroxaban 20 mg tablet (Xarelto) 20 mg PO QPMWITHMEAL 02/18/24 02/18/24 History semaglutide 0.25 mg or 0.5 mg (2 0.5 mg SQ WEEKLY 02/18/24 02/18/24 History mg/3 mL) subcutaneous pen injector (Ozempic) tamsulosin 0.4 mg capsule 0.4 mg PO HS 02/18/24 02/18/24 History trazodone 100 mg tablet 100 mg PO HS 02/18/24 02/18/24 History venlafaxine 150 mg 150 mg PO DAILY 02/18/24 02/18/24 History capsule,extended release 24 hr New Prescriptions to Start Prescriptions: Allergies Allergy/AdvReac Type Severity Reaction Status Date / Time clindamycin Allergy Mild Nausea Verified 02/18/24 11:29 doxycycline AdvReac Mild Upset Verified 02/18/24 11:29 stomach, heartbur Assessment and Plan *Assessment and plan (1) Atrial fibrillation with rapid ventricular response: Status: Acute Category: Medical Code(s): I48.91 - Unspecified atrial fibrillation (2) QUINN (obstructive sleep apnea): Problem Comment: Severe QUINN and nocturnal hypoxemia. He was unable to tolerate CPAP in the past and needed trial with BiPAP. He was offered an split-night with BiPAP titration but due to issues with transportation he requested a home sleep study. Status: Chronic Category: Medical Code(s): G47.33 - Obstructive sleep apnea (adult) (pediatric) (3) BMI 60.0-69.9, adult: Status: Chronic Category: Medical Code(s): Z68.44 - Body mass index [BMI] 60.0-69.9, adult Plan Atrial fibrillation with rapid ventricular response -Known diagnosis for years -Likely exacerbated secondary to BMI 66, untreated sleep apnea, biatrial dilation, recent severe weight gain -Patient is in no distress and hemodynamically otherwise stable so no emergent cardioversion is required at this time -Continue home dose bisoprolol, add IV Lopressor 5 mg every 6 hours as needed heart rate greater than 130 -Patient reports compliance with Xarelto, will continue here -I advised him that he needs to use CPAP and lose significant weight *Patient had a 48-hour heart monitor in May which showed sinus bradycardia to upper 30s in the daytime associated with weakness. He may have sick sinus syndrome and eventually need pacemaker which we discussed Morbid obesity, BMI 66 -This is life limiting condition, patient is already status post gastric sleeve -He reports he recently resumed GLP-1, had to stop secondary to insurance issue Obstructive sleep apnea -Patient reports he does not use CPAP at home -He recently underwent additional home sleep study and has a follow-up with Dr. Ryder pending IDDM - last A1C 7.4 per pt - insulin per facility protocol. Hypomagnesemia - add 2g Magnesium sulfate IV x1 02/17: Patient is in A-fib RVR, 130?140 but asymptomatic and otherwise hemodynamically stable at this time. He will be admitted to the hospital and we will check a full lab panel and chest x-ray. Start bisoprolol 5 mg every 6 hours. He can be n.p.o. after midnight. Consider DCCV tomorrow. He may not need RM if he is compliant with medications.
[2024-02-18 14:40] LABS: NT Pro Brain Natriuretic Pep. 1410 pg/mL (0-125)
[2024-02-18 15:18] LABS: Thyroid Stimulating Hormone 2.03 uIU/mL (0.465-4.68)
[2024-02-18] MEDS: METOPROLOL TARTRATE 5MG/5ML VIAL 5 MG IV (15:33)
[2024-02-18 16:04] LABS: Hemoglobin A1C 8.2 % (4.0-6.0)
[2024-02-18] MEDS: MAGNESIUM SULFATE IN WATER 2 GM/50 ML PIGGYBACK IV (16:59)
[2024-02-18 17:09] LABS: POC Glucose,Bedside 182 (70-110)
[2024-02-18] MEDS: METOPROLOL TARTRATE 5MG/5ML VIAL 2.5 MG IV (19:40)
--- NOTE | 2024-02-18 19:47 | P.HP_ITS ---
History of Present Illness *Admission Date: 02/18/24 *Reason for visit:: chest pain and palpitation *History of present illness: This is 48-year-old white male history of paroxysmal atrial fibrillation and morbid obesity with a BMI of 66. He also has untreated obstructive sleep apnea and an echo in 2021 which showed biatrial dilation and LV dilation with a normal EF. Patient was seen in the cadiology office today. On evaluation he was found to be up 26 pounds from the visit prior which he states is due to dietary indiscretion. He was complaining of palpitations chest discomfort and diaphoresis and was found to be in A-fib RVR, 140s so he was direct admitted to the hospital. [facility] Disclaimer: The information contained in this section may have been updated after the jewelse nt was seen, as this information can be updated by other users. 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 Tachycardia Bilateral knee pain DDD (degenerative disc disease), lumbar Depression Morbid obesity with body mass index of 70 and over in adult CHF (congestive heart failure) COPD (chronic obstructive pulmonary disease) Diabetes Dyspnea BMI 60.0-69.9, adult Obesity Anxiety disorder Hypertension Diabetes type 2, uncontrolled Surgical History S/P gastric sleeve procedure History of gastric bypass Family History (Updated 02/18/24 @ 15:22 by Betty Goins RN) Other No significant family history Social History (Updated 02/18/24 @ 15:22 by Betty Goins RN) Smoking Status: Former smoker alcohol intake: former year quit: 2021 counseling given: Yes counseling provided: provider counseling substance use type: denies use current occupational status: unemployed and disabled Travel in the last 8 weeks: None household members: spouse and children housing: house marital status: number of children: 1 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 current occupational exposures/hazards: No pets and animals: Yes pets and animals: cat(s) diet: other caffeine: Yes physical activity: none Review of Systems Review of Systems Review of systems:: pertinent systems reviewed and negative unless documented below Constitutional Constitutional: Denies weakness Eyes Eyes: Denies loss of vision ENT Ears, Nose, Mouth, and Throat: Denies vertigo *Cardiovascular Cardiovascular: Denies syncope *Neurologic Neurologic: Denies loss of vision, Denies syncope, Denies vertigo and Denies weakness Meds Home Medications and Allergies Home Medications ?Medication ?Instructions ?Recorded ?Confirmed ?Type spironolactone 50 mg tablet 50 mg PO DAILY #90 tabs 09/02/23 02/18/24 Rx pen needle, diabetic 32 gauge x #100 ea 09/16/23 02/18/24 Rx 5/32 (Comfort EZ Pen [place]) insulin aspar prt-insulin aspart 65 unit SQ TID 01/19/24 02/18/24 History 100 unit/mL (70-30) subcutaneous soln (Novolog Mix 70-30 U-100 Insuln) cariprazine 3 mg capsule (Vraylar) 3 mg PO DAILY #90 caps 01/27/24 02/18/24 Rx atorvastatin 40 mg tablet 40 mg PO HS 02/18/24 02/18/24 History bisoprolol fumarate 5 mg tablet 5 mg PO BID 02/18/24 02/18/24 History furosemide 40 mg tablet 40 mg PO DAILY 02/18/24 02/18/24 History gabapentin 600 mg tablet 600 mg PO TID 02/18/24 02/18/24 History hydrocodone 10 mg-acetaminophen 1 tab PO TIDP PRN pain 02/18/24 02/18/24 History 325 mg tablet insulin syringe-needle U-100 1 mL #10 ea 02/18/24 02/18/24 History 30 gauge x 1/2 (BD Insulin Syringe Ultra-Fine) lorazepam 1 mg tablet 1 mg PO DAILYP PRN XIETY 02/18/24 02/18/24 History metformin 1,000 mg tablet 1,000 mg PO BID 02/18/24 02/18/24 History metoclopramide HCl 10 mg tablet 10 mg PO QID 02/18/24 02/18/24 History omeprazole 40 mg capsule,delayed 40 mg PO BID 02/18/24 02/18/24 History release rivaroxaban 20 mg tablet (Xarelto) 20 mg PO QPMWITHMEAL 02/18/24 02/18/24 History semaglutide 0.25 mg or 0.5 mg (2 0.5 mg SQ WEEKLY 02/18/24 02/18/24 History mg/3 mL) subcutaneous pen injector (Ozempic) tamsulosin 0.4 mg capsule 0.4 mg PO HS 02/18/24 02/18/24 History trazodone 100 mg tablet 100 mg PO HS 02/18/24 02/18/24 History venlafaxine 150 mg 150 mg PO DAILY 02/18/24 02/18/24 History capsule,extended release 24 hr New Prescriptions to Start Prescriptions: Allergies Allergy/AdvReac Type Severity Reaction Status Date / Time clindamycin Allergy Mild Nausea Verified 02/18/24 11:29 doxycycline AdvReac Mild Upset Verified 02/18/24 11:29 stomach, heartbur Exam Data for Last 24 hours Vital signs and Labs for Last 24 Hours: Temp Pulse Resp BP Pulse Ox O2 Del Method 97.8 F 130 H 22 121/86 94 L Room Air 02/18/24 16:00 02/18/24 18:00 02/18/24 18:00 02/18/24 18:00 02/18/24 18:00 02/18/24 19:00 Laboratory Results - last 24 hr 02/18/24 13:56: WBC 9.5, RBC 5.41, Hgb 15.1, Hct 45.9, MCV 84.7, MCH 27.8, MCHC 32.9, RDW 15.2, Plt Count 224, MPV 8.1, Neut % (Auto) 73.4, Lymph % (Auto) 18.4, [place] % (Auto) 6.7, Eos % (Auto) 1.1, Baso % (Auto) 0.5, Neut # (Auto) 7.0, Lymph # (Auto) 1.7, [place] # (Auto) 0.6, Eos # (Auto) 0.1, Baso # (Auto) 0.1, Sodium 135 L, Potassium 3.9, Chloride 101, Carbon Dioxide 27, Anion Gap 10.9, BUN 16, Creatinine 0.70, Estimated Creat Clear 145, Estimated GFR 121, Est GFR ( Amer) 147, Glucose 110 H, Hemoglobin A1c 8.2 H D, Calcium 9.1, Magnesium 1.4 L, Total Bilirubin 1.4 H, AST 26, ALT 30, Alkaline Phosphatase 59, NT-Pro-B Natriur et Pep 1410 H, Total Protein 8.0, Albumin 4.2, Globulin 3.8 H, Albumin/Globulin Ratio 1.1, TSH 2.03 02/18/24 16:59: POC Glucose 182 H I & O for Last 24 hours: Intake & Output 02/15/24 02/16/24 02/17/24 02/18/24 23:59 23:59 23:59 23:59 Intake Total 410 / 410 Balance 410 / 410 Weight 219.255 kg Constitutional Constitutional: no acute distress, morbidly obese and cooperative *Routine HEENT Exam Head: Present normocephalic Eye: Present EOMI and PERRL ENT: Present mucous membranes moist *Routine Neck Exam Neck: Present supple; Absent lymphadenopathy *Routine Respiratory Exam Respiratory: Present CTA bilaterally *Routine Cardiovascular Exam Cardiovascular: Present Normal S1, Normal S2, tachycardia and irregularly irregu lar *Routine Abdominal Exam Abdominal: Present soft, normoactive bowel sounds, distended and obese; Absent tenderness *Routine Rectal Exam Rectal:: deferred *Routine Genitalia Exam Genitalia:: deferred *Routine Extremities Exam Extremities: Absent cyanosis, clubbing or edema *Routine Skin Exam Skin: Present warm; Absent rash *Routine Neurological Exam Neurological: Present alert and oriented X3 H&P: Result Imaging and Cardiology EKG: Status: image reviewed by me, Preliminary report and final report Assessment and Plan *Assessment and plan (1) Atrial fibrillation with rapid ventricular response: Status: Acute Category: Medical Code(s): I48.91 - Unspecified atrial fibrillation (2) QUINN (obstructive sleep apnea): Problem Comment: Severe QUINN and nocturnal hypoxemia. He was unable to tolerate CPAP in the past and needed trial with BiPAP. He was offered an split-night with BiPAP titration but due to issues with transportation he requested a home sleep study. Status: Chronic Category: Medical Code(s): G47.33 - Obstructive sleep apnea (adult) (pediatric) (3) BMI 60.0-69.9, adult: Status: Chronic Category: Medical Code(s): Z68.44 - Body mass index [BMI] 60.0-69.9, adult (4) Diastolic congestive heart failure: Status: Acute Qualifiers: Heart failure chronicity: chronic Qualified Code(s): I50.32 - Chronic diastolic (congestive) heart failure Category: Medical Code(s): I50.30 - Unspecified diastolic (congestive) heart failure (5) Sleep apnea in adult: Status: Acute Category: Medical Code(s): G47.30 - Sleep apnea, unspecified (6) Hypertension: Status: Chronic Qualifiers: Hypertension type: essential hypertension Qualified Code(s): I10 - Essential (primary) hypertension Category: Medical Code(s): I10 - Essential (primary) hypertension (7) Diabetes type 2, uncontrolled: Status: Chronic Qualifiers: Glycemic state: with hyperglycemia Qualified Code(s): E11.65 - Type 2 diabetes mellitus with hyperglycemia Category: Medical Code(s): E11.65 - Type 2 diabetes mellitus with hyperglycemia Plan 48-year-old white male history of paroxysmal atrial fibrillation and morbid obesity with a BMI of 66. He also has untreated obstructive sleep apnea and an echo in 2021 which showed biatrial dilation and LV dilation with a normal EF. a greed for admission plan as follw: Atrial fibrillation with rapid ventricular response -hemodynamically stable so no emergent cardioversion is required at this time. -Cardiology consult. carlton their recommendation -Continue home dose bisoprolol, add IV Lopressor 5 mg every 6 hours as needed heart rate greater than 130 -Patient reports compliance with Xarelto, will continue here -Encouraged to use CPAP and lose significant weight Per cardiology: *Patient had a 48-hour heart monitor in May which showed sinus bradycardia to upper 30s in the daytime associated with weakness. He may have sick sinus syndrome and eventually need pacemaker which we discussed Morbid obesity, BMI 66 -This is life limiting condition, patient is already status post gastric sleeve -He reports he recently resumed GLP-1, had to stop secondary to insurance issue Obstructive sleep apnea -Patient reports he does not use CPAP at home -He recently underwent additional home sleep study and has a follow-up with Dr. Ryder pending IDDM. Uncontrolled - last A1C 7.4 per pt - insulin per sliding scale resume home regimen Hypomagnesemia - add 2g Magnesium sulfate IV x1 HTN reconciled home meds Full code
[2024-02-18] MEDS: dilTIAZem HCL 100 MG in 0.9 % SODIUM CHLORIDE 100 ML 10 MG IV (21:35)
[2024-02-18] MEDS: dilTIAZem 25MG/5ML VIAL 25 MG IV (21:35)
[2024-02-18] MEDS: humaLOG 100 UNITS/ML 10ML VIAL (SSI) SQ (21:52)
[2024-02-18 21:53] LABS: POC Glucose,Bedside 169 (70-110)
[2024-02-18] MEDS: HYDROCODONE 10MG/APAP 325MG TAB 1 TAB PO (23:11)
[2024-02-18] MEDS: GABAPENTIN 600MG TABLET 600 MG PO (23:11)
--- NOTE | 2024-02-18 23:57 | ECG_ITS ---
APPROVED REPORT Exam: Resting ECG HR:115 bpm ECG Measurements Heart Rate 115 AXES QRSd 142 QRS -49 QT 369 T 3 QTc 437 Conclusion ATRIAL FIBRILLATION WITH RAPID VENTRICULAR RESPONSE RIGHT BUNDLE BRANCH BLOCK [120+ ms QRS DURATION, UPRIGHT V1, 40+ ms S IN I/aVL/V4/V5/V6] LEFT ANTERIOR FASCICULAR BLOCK [QRS AXIS <= -45, QR IN I, RS IN II] POSSIBLE ANTERIOR MYOCARDIAL INFARCTION , OF INDETERMINATE AGE [30 ms Q WAVE IN V3/V4, OR R < 0.2 mV IN V4] ABNORMAL ECG UNCONFIRMED REPORT Electronically signed by : Asad Judge MD 02/19/2024 14:38:45
[2024-02-19] VITALS (12 sets, daily range): BP systolic 123–148; BP diastolic 79–95; PULSE 78–107; RESP 12–24; TEMP 36.9–37; O2SAT 90–96; BMI 65.9
[2024-02-19] MEDS: dilTIAZem HCL 100 MG in 0.9 % SODIUM CHLORIDE 100 ML 15 MG IV (03:37)
[2024-02-19 05:32] LABS: Microscopic, Urine URINE MICROSCOPIC (MICROSCOPIC)
[2024-02-19 05:33] LABS: Appearance,Urine CLEAR (Clear); Blood, Urine TRACE-I (Negative); Color,Urine YELLOW (Yellow); Glucose,Urine (UA) Negative (Negative); Ketones,Urine Negative (Negative); Leukocyte Esterase,Urine Negative (Negative); Nitrate,Urine Negative (Negative); Protein,Urine TRACE (Negative); Specific Gravity, Urine >= 1.030 (1.005-1.030); Urobilinogen,Urine 0.2 EU/dl (0.2)
[2024-02-19 05:37] LABS: Bilirubin,Urine 1+ (Negative)
[2024-02-19 05:41] LABS: Bacteria,Urine Trace /lpf
[2024-02-19 06:08] LABS: Basophils # 0.1 K/mm3 (0-0.2); Basophils % 0.8 % (0.1-2.0); Eosinophils # 0.1 K/mm3 (0.0-0.4); Eosinophils % 0.9 % (0.1-12.0); Hematocrit 48.5 % (42.0-52.0); Hemoglobin 15.5 g/dL (14.1-18.0); Lymphocytes # 1.8 K/mm3 (0.7-4.5); Lymphocytes % 23.6 % (10-50); Mean Corpuscular HGB Conc 31.8 g/dL (31.8-35.4); Mean Corpuscular Hemoglobin 27.3 pg (27.0-31.2); Mean Corpuscular Volume 85.7 fl (80-94); Mean Platelet Volume 7.8 fl (7.4-10.4); Monocytes # 0.5 K/mm3 (0.1-1.0); Monocytes % 6.9 % (1.7-9.3); Neutrophils # 5.1 K/mm3 (1.8-7.8); Neutrophils % 67.7 % (37.0-80.0); Platelet Count 203 K/mm3 (142-424); Red Blood Count 5.67 M/mm3 (4.60-6.20); Red Cell Distribution Width 15.4 % (11.5-17.5); White Blood Count 7.6 K/mm3 (4.8-10.8)
[2024-02-19 06:16] LABS: Chloride 99 mmol/L (98-107); Potassium 4.3 mmoL/L (3.5-5.1); Sodium 135 mmol/L (136-145)
[2024-02-19 06:19] LABS: Blood Urea Nitrogen 20 mg/dl (9-20); Creatinine Clearance Estimated 127 mL/min (50-200); Estimated Glomerular Filt Rate 104 ml/min (>60); GFR (African American) 126 ML/MIN (>60)
[2024-02-19 06:20] LABS: Anion Gap 11.3 mEq/L (5-15); Calcium 8.8 mg/dl (8.4-10.2); Carbon Dioxide 29 mmol/L (22.0-30.0); Glucose 189 mg/dl (74-100)
[2024-02-19 06:29] LABS: Chol/HDL Ratio 3.3 (1-3.5); Cholesterol 118 mg/dl (140-200); HDL Cholesterol 36 mg/dl (40-60); Triglycerides 117 mg/dl (30-150); VLDL Cholesterol 23 mg/dL (0-40)
[2024-02-19] MEDS: humaLOG 100 UNITS/ML 10ML VIAL (SSI) SQ (06:29)
[2024-02-19 06:40] LABS: Direct LDL Cholesterol 62.01 mg/dL (100-129)
--- NOTE | 2024-02-19 06:41 | ECG_ITS ---
APPROVED REPORT Exam: Resting ECG HR:91 bpm ECG Measurements Heart Rate 91 AXES QRSd 142 QRS -46 QT 394 T -20 QTc 442 Conclusion ATRIAL FIBRILLATION INTRAVENTRICULAR CONDUCTION DELAY [130+ ms QRS DURATION] ABNORMAL ECG UNCONFIRMED REPORT Electronically signed by : Asad Judge MD 02/19/2024 14:38:37
--- NOTE | 2024-02-19 07:13 | PC.NURSE ---
Dilt gtt @ 5mg/hr, pt remains in afib w/ HR 80-110. Pt c/o pain in lower back 1x during shift requiring PRN medication per SEP. Pt has been sitting up in chair during entire shift. Refused to move to bed stating he sits and sleeps in a recliner at home. Total of 700ml urine output during shift. Call light within reach.
[2024-02-19] MEDS: HYDROCODONE 10MG/APAP 325MG TAB 1 TAB PO ×2 (07:32→14:41)
[2024-02-19] MEDS: GABAPENTIN 600MG TABLET 600 MG PO ×2 (08:48→11:59)
[2024-02-19] MEDS: METOCLOPRAMIDE 10MG TABLET 10 MG PO ×3 (08:48→16:10)
[2024-02-19] MEDS: BISOPROLOL 5MG TABLET 5 MG PO (08:49)
[2024-02-19] MEDS: SPIRONOLACTONE 25MG TABLET 50 MG PO (08:49)
[2024-02-19] MEDS: VENLAFAXINE XR 75MG CAPSULE 150 MG PO (08:49)
[2024-02-19] MEDS: FUROSEMIDE 40 MG TABLET PO (08:49)
[2024-02-19] MEDS: VRAYLAR 3 MG 3 EACH PO (08:50)
[2024-02-19] MEDS: humaLOG MIX 75/25 3ML FLEXPEN 65 UNIT SQ ×2 (08:54→14:01)
[2024-02-19 08:59] LABS: Magnesium 1.8 mg/dl (1.6-2.3)
--- NOTE | 2024-02-19 09:45 | P.PN_ITS ---
Subjective Subjective Date: 03/16/24 Time: 09:45 Interval history: Remains in A-fib. Required initiation of Cardizem drip overnight. This morning heart rate 1 teens and his symptoms have resolved. Lab workup was largely unremarkable aside from low magnesium which was replaced. Exam Data for Last 24 hours Vital signs and Labs for Last 24 Hours: Temp Pulse Resp BP Pulse Ox O2 Del Method FiO2 98.5 F 96 H 24 148/95 H 95 Room Air 21 02/19/24 08:00 02/19/24 08:00 02/19/24 08:00 02/19/24 08:00 02/19/24 08:00 02/19/24 09:05 02/19/24 02:16 Laboratory Results - last 24 hr 02/18/24 13:56: WBC 9.5, RBC 5.41, Hgb 15.1, Hct 45.9, MCV 84.7, MCH 27.8, MCHC 32.9, RDW 15.2, Plt Count 224, MPV 8.1, Neut % (Auto) 73.4, Lymph % (Auto) 18.4, [place] % (Auto) 6.7, Eos % (Auto) 1.1, Baso % (Auto) 0.5, Neut # (Auto) 7.0, Lymph # (Auto) 1.7, [place] # (Auto) 0.6, Eos # (Auto) 0.1, Baso # (Auto) 0.1, Sodium 135 L, Potassium 3.9, Chloride 101, Carbon Dioxide 27, Anion Gap 10.9, BUN 16, Creatinine 0.70, Estimated Creat Clear 145, Estimated GFR 121, Est GFR ( Amer) 147, Glucose 110 H, Hemoglobin A1c 8.2 H D, Calcium 9.1, Magnesium 1.4 L, Total Bilirubin 1.4 H, AST 26, ALT 30, Alkaline Phosphatase 59, NT-Pro-B Natriuret Pep 1410 H, Total Protein 8.0, Albumin 4.2, Globulin 3.8 H, Albumin/Globulin Ratio 1.1, TSH 2.03 02/18/24 16:59: POC Glucose 182 H 02/18/24 21:46: POC Glucose 169 H 02/19/24 05:19: WBC 7.6, RBC 5.67, Hgb 15.5, Hct 48.5, MCV 85.7, MCH 27.3, MCHC 31.8, RDW 15.4, Plt Count 203, MPV 7.8, Neut % (Auto) 67.7, Lymph % (Auto) 23.6, [place] % (Auto) 6.9, Eos % (Auto) 0.9, Baso % (Auto) 0.8, Neut # (Auto) 5.1, Lymph # (Auto) 1.8, [place] # (Auto) 0.5, Eos # (Auto) 0.1, Baso # (Auto) 0.1, Sodium 135 L, Potassium 4.3, Chloride 99, Carbon Dioxide 29, Anion Gap 11.3, BUN 20, Creatinine 0.80, Estimated Creat Clear 127, Estimated GFR 104, Est GFR ( Amer) 126, Glucose 189 H D, Calcium 8.8, Magnesium 1.8 D, Triglycerides 117, Cholesterol 118 L, LDL Cholesterol Direct 62.01 L, VLDL Cholesterol 23, HDL Cholesterol 36 L, Cholesterol/HDL Ratio 3.3 02/19/24 05:25: Urine Color Yellow, Urine Appearance Clear, Urine pH 6.0, Ur Specific [place] >= 1.030, Urine Protein Trace, Urine Glucose (UA) Negative, Urine Ketones Negative, Urine Blood Trace-i, Urine Nitrate Negative, Urine Bilirubin 1+ A, Urine Urobilinogen 0.2, Ur Leukocyte Esterase Negative, Urine RBC 3-5, Urine WBC None, Ur Squamous Epith Cells 5-10, Urine Bacteria Trace, Hyaline Casts 3-5 I & O for Last 24 hours: Intake & Output 02/16/24 02/17/24 02/18/24 02/19/24 23:59 23:59 23:59 23:59 Intake Total 426.833 / 426.833 76.083 / 76.083 Output Total 400 / 400 500 / 500 Balance 26.833 / 26.833 -423.917 / -423.917 Weight 483 lb 6 oz 487 lb 6.4 oz Constitutional Constitutional: no acute distress, obese and cooperative *Routine HEENT Exam Eye: Present PERRL *Routine Respiratory Exam Respiratory: Present CTA bilaterally; Absent accessory muscle use, wheezes or crackles *Routine Cardiovascular Exam Cardiovascular: Present RRR, Normal S1, Normal S2 and irregularly irregular; Absent murmur, gallop or rubs *Routine Abdominal Exam Abdominal: Present soft; Absent tenderness *Routine Extremities Exam Extremities: Present pulses intact; Absent cyanosis or edema *Routine Skin Exam Skin: Present intact; Absent erythema or wounds *Routine Neurological Exam Neurological: Present alert and oriented X3 Routine Psychiatric Exam Psychiatric: Present cooperative Progress Note: A&P Assessment and plan (1) Atrial fibrillation with rapid ventricular response: Status: Acute (2) QUINN (obstructive sleep apnea): Problem details: Severe QUINN and nocturnal hypoxemia. He was unable to tolerate CPAP in the past and needed trial with BiPAP. He was offered an split-night with BiPAP titration but due to issues with transportation he requested a home sleep study. Status: Chronic (3) BMI 60.0-69.9, adult: Status: Chronic (4) Diastolic congestive heart failure: Status: Acute (5) Sleep apnea in adult: Status: Acute (6) Hypertension: Status: Chronic (7) Diabetes type 2, uncontrolled: Status: Chronic Assessment and Plan Assessment and Plan for All Diagnoses:: Atrial fibrillation with rapid ventricular response -Known diagnosis for years -Likely exacerbated secondary to BMI 66, untreated sleep apnea, biatrial dilation, recent severe weight gain -Patient is in no distress and hemodynamically otherwise stable so no emergent cardioversion is required at this time -Continue home dose bisoprolol, add IV Lopressor 5 mg every 6 hours as needed heart rate greater than 130 -Patient reports compliance with Xarelto, will continue here -I advised him that he needs to use CPAP and lose significant weight *Patient had a 48-hour heart monitor in May which showed sinus bradycardia to upper 30s in the daytime associated with weakness. He may have sick sinus syndrome and eventually need pacemaker which we discussed 02/18 - rate controlled and asymptomatic on 5mg Cardizem -consider transition to p.o. versus attempt cardioversion. I doubt very much she would maintain sinus rhythm given his BMI and untreated sleep apnea but this is never been attempted and patient is agreeable. Patient reports compliance with Xarelto for at least 1 month so no RM would be required. Morbid obesity, BMI 66 -This is life limiting condition, patient is already status post gastric sleeve -He reports he recently resumed GLP-1, had to stop secondary to insurance issue Obstructive sleep apnea -Patient reports he does not use CPAP at home -He recently underwent additional home sleep study and has a follow-up with Dr. Ryder pending IDDM - last A1C 7.4 per pt - insulin per facility protocol. Hypomagnesemia - add 2g Magnesium sulfate IV x1 -Repeat labs pending Brief procedure note: Anesthesia service was present and sedated the patient with 200 mg of propofol. Respiratory therapy was also present patient was placed on CPAP. He signed consent and family was also agreeable. Patient was synchronized and successfully cardioverted to sinus rhythm with a single 200 J shock. He is recovering without complication with normal vitals. Patient can DC home with his Xarelto and bisoprolol, check Cardizem CD 120 mg. We discussed at length the need for CPAP, compliance and continued aggressive efforts at weight loss. He needs office follow-up with us in 2 weeks.
--- NOTE | 2024-02-19 11:27 | ECG_ITS ---
APPROVED REPORT Exam: Resting ECG HR:90 bpm ECG Measurements Heart Rate 90 AXES TX 167 P 28 QRSd 138 QRS -40 QT 403 T 6 QTc 451 Conclusion SINUS RHYTHM WITH OCCASIONAL SUPRAVENTRICULAR PREMATURE COMPLEXES LEFT AXIS DEVIATION [QRS AXIS < -30] INTRAVENTRICULAR CONDUCTION DELAY [130+ ms QRS DURATION] ABNORMAL ECG UNCONFIRMED REPORT Electronically signed by : Asad Judge MD 02/19/2024 14:38:27
--- NOTE | 2024-02-19 11:29 | EXP.CARDIOVE ---
[facility] Cardioversion Cardioversion Date: 02/19/24 Provider:: BLAS Sellers Procedure Performed:: DCCV Diagnosis:: A-fib RVR Procedure Summary:: Anesthesia service was present and sedated the patient with 200 mg of propofol. Respiratory therapy was also present patient was placed on CPAP. He signed consent and family was also agreeable. Patient was synchronized and successfully cardioverted to sinus rhythm with a single 200 J shock. He is recovering without complication with normal vitals. Complications:: None Conculsion:: Successful DCCV x1 to SR
[2024-02-19] MEDS: dilTIAZem ER 120MG CAPSULE 120 MG PO (11:57)
[2024-02-19 12:09] LABS: POC Glucose,Bedside 195 (70-110)
[2024-02-19 12:09] LABS: POC Glucose,Bedside 145 (70-110)
--- NOTE | 2024-02-19 12:56 | EXP.ANES.CKL ---
[facility] Disclaimer: The information contained in this section may have been updated after the patient was seen, as this information can be updated by other users. 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 Tachycardia Bilateral knee pain DDD (degenerative disc disease), lumbar Depression Morbid obesity with body mass index of 70 and over in adult CHF (congestive heart failure) COPD (chronic obstructive pulmonary disease) Diabetes Dyspnea BMI 60.0-69.9, adult Obesity Anxiety disorder Hypertension Diabetes type 2, uncontrolled Surgical History S/P gastric sleeve procedure History of gastric bypass Family History (Updated 02/18/24 @ 15:22 by Betty Goins RN) Other No significant family history Social History (Updated 02/18/24 @ 15:22 by Betty Goins RN) Smoking Status: Former smoker alcohol intake: former year quit: 2021 counseling given: Yes counseling provided: provider counseling substance use type: denies use current occupational status: unemployed and disabled Travel in the last 8 weeks: None household members: spouse and children housing: house marital status: number of children: 1 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 current occupational exposures/hazards: No pets and animals: Yes pets and animals: cat(s) diet: other caffeine: Yes physical activity: none [facility] Anesthesia Checklist Patient Identification Patient Identification: Arm Band and Family Structural Data Admitted From: Home Planned Operative Procedure/s: Cardioversion. Consent for Planned Operative Procedure(s) Verified: Yes Verified Documents: Surgical Consent and History and Physical NPO Status Verified Time NPO: 00:00 Additional verifications Patient : No Anesthesia Reactions: No Hx Blood Transfusions: No Blood Transfusion Reaction: No Cephalosporin Allergy: No Previous Colonoscopy: No Airway Assessment Mallampati Score:: Class III C-Spine Mobility Assessed: Yes TMJ Mobility Assessed: Yes Dentition: Edentulous Neurological Assessment Level of Consciousness: Awake, Alert, Appropriate and Follows Commands Hx Seizures: No Numbness or tingling in extremities: No Anesthesia Plan Anesthesia Risk discussed: Yes ASA Class: III Anesthesia Type: MAC Preoperative Comments Pre-Operative Comments: Atrial Fibrillation. For cardioversion. IDDM. 480 POUNDS. Had Gastric Bypass. [place] two years ago.
[2024-02-19] MEDS: METFORMIN 500MG TABLET 1000 MG PO (16:09)
[2024-02-19] MEDS: RIVAROXABAN 10MG TABLET 20 MG PO (16:10)
[2024-02-20 06:42] LABS: POC Glucose,Bedside 249 (70-110)
--- NOTE | 2024-02-22 14:49 | CARE MANAGER ---
Called and spoke with patient regarding recent discharge. Patient stated that he is doing well, has started new medication prescribed at discharge and was aware of scheduled f/u appts. No concerns voiced at time of call.
--- NOTE | 2024-03-02 15:41 | EXP.DC.SUM ---
General Admission date:: 02/18/24 Discharge date: 03/02/24 HPI HPI HPI: This is 48-year-old white male history of paroxysmal atrial fibrillation and morbid obesity with a BMI of 66. He also has untreated obstructive sleep apnea and an echo in 2021 which showed biatrial dilation and LV dilation with a normal EF. Patient was seen in the cadiology office today. On evaluation he was found to be up 26 pounds from the visit prior which he states is due to dietary indiscretion. He was complaining of palpitations chest discomfort and diaphoresis and was found to be in A-fib RVR, 140s so he was direct admitted to the hospital. Hospital Course Hospital Course Hospital Course: On the date of discharge, the patient reported feeling stable. The patient was found not to be in any acute distress, and no new abnormalities on physical examination. Further, the patient expressed appropriate understanding of, and agreement with, the discharge recommendations, medications, and plan. Time spent 37 mins 48-year-old white male history of paroxysmal atrial fibrillation and morbid obesity with a BMI of 66. He also has untreated obstructive sleep apnea and an echo in 2021 which showed bilateral dilation and LV dilation with a normal EF. Patient was admitted to hospital for Afib with RVR and he was then evaluated by cardiology, they recommended cardioversion, patient received cardioversion, patient tolerated well and was then discharged in stable condition after clearance from cardiology. Exam Data for Last 24 hours Vital signs and Labs for Last 24 Hours: Temp Pulse Resp BP Pulse Ox O2 Del Method FiO2 98.5 F 90 20 123/80 90 L Room Air 21 02/19/24 08:00 02/19/24 16:00 02/19/24 12:00 02/19/24 12:00 02/19/24 12:00 02/19/24 14:51 02/19/24 02:16 Constitutional Constitutional: no acute distress *Routine HEENT Exam Head: Present normocephalic Eye: Present EOMI and PERRL ENT: Present mucous membranes moist *Routine Neck Exam Neck: Present supple; Absent lymphadenopathy *Routine Respiratory Exam Respiratory: Present CTA bilaterally *Routine Cardiovascular Exam Cardiovascular: Present RRR *Routine Abdominal Exam Abdominal: Present soft and normoactive bowel sounds; Absent tenderness *Routine Extremities Exam Extremities: Absent cyanosis, clubbing or edema *Routine Skin Exam Skin: Present warm; Absent rash *Routine Neurological Exam Neurological: Present alert and oriented X3 DS: Diagnosis Discharge Diagnosis (1) Atrial fibrillation with rapid ventricular response: Status: Acute Code(s): I48.91 - Unspecified atrial fibrillation (2) QUINN (obstructive sleep apnea): Status: Chronic Code(s): G47.33 - Obstructive sleep apnea (adult) (pediatric) Problem details: Severe QUINN and nocturnal hypoxemia. He was unable to tolerate CPAP in the past and needed trial with BiPAP. He was offered an split-night with BiPAP titration but due to issues with transportation he requested a home sleep study. (3) BMI 60.0-69.9, adult: Status: Chronic Code(s): Z68.44 - Body mass index [BMI] 60.0-69.9, adult (4) Diastolic congestive heart failure: Status: Acute Code(s): I50.30 - Unspecified diastolic (congestive) heart failure Qualifiers: Heart failure chronicity: chronic Qualified Code(s): I50.32 - Chronic diastolic (congestive) heart failure (5) Sleep apnea in adult: Status: Acute Code(s): G47.30 - Sleep apnea, unspecified (6) Hypertension: Status: Chronic Code(s): I10 - Essential (primary) hypertension Qualifiers: Hypertension type: essential hypertension Qualified Code(s): I10 - Essential (primary) hypertension (7) Diabetes type 2, uncontrolled: Status: Chronic Code(s): E11.65 - Type 2 diabetes mellitus with hyperglycemia Qualifiers: Glycemic state: with hyperglycemia Qualified Code(s): E11.65 - Type 2 diabetes mellitus with hyperglycemia Meds Home Medications and Allergies Home Medications ?Medication ?Instructions ?Recorded ?Confirmed ?Type spironolactone 50 mg tablet 50 mg PO DAILY #90 tabs 09/02/23 02/25/24 Rx pen needle, diabetic 32 gauge x #100 ea 09/16/23 02/25/24 Rx 5/32 (Comfort EZ Pen [place]) insulin aspar prt-insulin aspart 65 unit SQ TID 01/19/24 02/25/24 History 100 unit/mL (70-30) subcutaneous soln (Novolog Mix 70-30 U-100 Insuln) cariprazine 3 mg capsule (Vraylar) 3 mg PO DAILY #90 caps 01/27/24 02/25/24 Rx atorvastatin 40 mg tablet 40 mg PO HS 02/18/24 02/25/24 History bisoprolol fumarate 5 mg tablet 5 mg PO BID 02/18/24 02/25/24 History furosemide 40 mg tablet 40 mg PO DAILY 02/18/24 02/25/24 History insulin syringe-needle U-100 1 mL #10 ea 02/18/24 02/25/24 History 30 gauge x 1/2 (BD Insulin Syringe Ultra-Fine) lorazepam 1 mg tablet 1 mg PO DAILYP PRN XIETY 02/18/24 02/25/24 History metformin 1,000 mg tablet 1,000 mg PO BID 02/18/24 02/25/24 History metoclopramide HCl 10 mg tablet 10 mg PO QID 02/18/24 02/25/24 History omeprazole 40 mg capsule,delayed 40 mg PO BID 02/18/24 02/25/24 History release rivaroxaban 20 mg tablet (Xarelto) 20 mg PO QPMWITHMEAL 02/18/24 02/25/24 History semaglutide 0.25 mg or 0.5 mg (2 0.5 mg SQ WEEKLY 02/18/24 02/25/24 History mg/3 mL) subcutaneous pen injector (Ozempic) tamsulosin 0.4 mg capsule 0.4 mg PO HS 02/18/24 02/25/24 History trazodone 100 mg tablet 100 mg PO HS 02/18/24 02/25/24 History venlafaxine 150 mg 150 mg PO DAILY 02/18/24 02/25/24 History capsule,extended release 24 hr diltiazem HCl 120 mg 120 mg PO DAILY 30 days #30 caps 02/19/24 02/25/24 Rx capsule,extended release 24 hr gabapentin 600 mg tablet 600 mg PO TID #90 tabs 02/25/24 Rx hydrocodone 10 mg-acetaminophen 1 tab PO TIDP PRN pain #90 tabs 02/29/24 Rx 325 mg tablet minocycline 100 mg capsule 100 mg PO BID 10 days #20 caps 03/02/24 Rx New Prescriptions to Start Prescriptions: diltiazem HCl Morelia Mcfarland Allergies Allergy/AdvReac Type Severity Reaction Status Date / Time clindamycin Allergy Mild Nausea Verified 02/25/24 13:20 doxycycline AdvReac Mild Upset Verified 02/25/24 13:20 stomach, heartbur Discharge Plan Disposition Patient Disposition: Home, Self-Care Condition: Good Discharge Order Discharge Orders: Discharge Order (Routine); Ordered 02/19/24 Ordered By: Morelia Mcfarland Follow up Plan Follow up with: Daniel Chavarria PA [Physician [employer]] - 02/24/24 1:15 pm Malcolm Hayward APRN [Primary Care Provider] - 02/25/24 3:00 pm Prescriptions/Medication Reconciliation: New diltiazem HCl 120 mg Capsule,Extended Release 24hr 120 mg PO DAILY 30 Days Qty: 30 0RF Continued (DME) insulin syringe-needle U-100 [BD Insulin Syringe Ultra-Fine] 1 mL 30 gauge x 1/2 syringe See Rx Instructions .ROUTE .MEDSUPPLY Qty: 10 Rx Instructions: As directed Ozempic 0.25 mg or 0.5 mg (2 mg/3 mL) pen injector 0.5 mg SQ WEEKLY Patient Comments: INJECT 0.25 MG UNDER THE SKIN ONCE WEEKLY FOR 4 WEEKS THEN INCREASE TO 0.5 MG WEEKLY spironolactone 50 mg tablet 50 mg PO DAILY Qty: 90 3RF (DME) pen needle, diabetic [Comfort EZ Pen [place]] 32 gauge x 5/32 needle See Rx Instructions .Route Qty: 100 0RF Rx Instructions: As directed insulin asp prt-insulin aspart [Novolog Mix 70-30 U-100 Insuln] 100 unit/mL (70-30) solution 65 unit SQ TID Vraylar 3 mg capsule 3 mg PO DAILY Qty: 90 1RF venlafaxine 150 mg capsule,extended release 24hr 150 mg PO DAILY Rx Instructions: TAKE 1 CAPSULE BY MOUTH EVERY DAY lorazepam 1 mg tablet 1 mg PO DAILYP PRN (Reason: XIETY) furosemide 40 mg tablet 40 mg PO DAILY Rx Instructions: pt states that he does not take medication as on label. only takes 1 tablet daily and as long as he does not have plans for the day. atorvastatin 40 mg tablet 40 mg PO HS Rx Instructions: TAKE 1 TABLET BY MOUTH EVERY DAY AT BEDTIME FOR CHOLESTEROL omeprazole 40 mg capsule,delayed release(DR/EC) 40 mg PO BID Rx Instructions: TAKE 1 CAPSULE BY MOUTH TWICE A DAY FOR GERD bisoprolol fumarate 5 mg tablet 5 mg PO BID Rx Instructions: TAKE 1 TABLET BY MOUTH TWICE A DAY FOR BLOOD PRESSURE tamsulosin 0.4 mg capsule 0.4 mg PO HS Rx Instructions: TAKE 1 CAPSULE BY MOUTH ONCE DAILY trazodone 100 mg tablet 100 mg PO HS Rx Instructions: TAKE 1 TABLET AT BEDTIME metformin 1,000 mg tablet 1,000 mg PO BID metoclopramide HCl 10 mg tablet 10 mg PO QID Rx Instructions: TAKE 1 TABLET BY MOUTH FOUR TIMES A DAY FOR ACID REFLUX Xarelto 20 mg tablet 20 mg PO QPMWITHMEAL Rx Instructions: TAKE 1 TABLET BY MOUTH EVERY DAY FOR A FIB No Action gabapentin 600 mg tablet 600 mg PO TID Qty: 90 2RF hydrocodone-acetaminophen 10-325 mg tablet 1 tab PO TIDP PRN (Reason: pain) Qty: 90 0RF minocycline 100 mg capsule 100 mg PO BID 10 Days Qty: 20 0RF Problem Reconciliation Problems Reviewed?: Yes Patient Discharge Instructions ACTIVITY: Ambulate as tolerated DIET: continue same diet Patient Instructions: DI for Cardioversion, DI for Atrial Fibrillation Print Language: [place] Providers Primary Care Provider: Malcolm Hayward Provider: Morelia Mcfarland Attending Provider: Morelia Mcfarland
== END 2024-02-19 17:08 | disposition home or self-care (01) | DRG 309 ==
PROVIDERS: Physician Assistant; Admitting Provider Internal Medicine; PCP Nurse Practitioner Family; Visit Provider Internal Medicine
DX: I48.0 Paroxysmal atrial fibrillation (principal); I50.32 Chronic diastolic (congestive) heart failure; E66.01 Morbid (severe) obesity due to excess calories; Z68.44 Body mass index [BMI] 60.0-69.9, adult; I11.0 Hypertensive heart disease with heart failure; G47.33 Obstructive sleep apnea (adult) (pediatric); E11.65 Type 2 diabetes mellitus with hyperglycemia; Z79.4 Long term (current) use of insulin; Z79.899 Other long term (current) drug therapy
CPT/HCPCS: 36415; 71045; 80048; 80053; 80061; 81001; 82962; 83036; 83735; 83880; 84443; 85025; 92960; 93005; 93270; 94660; J3475

== ENCOUNTER 2024-02-25 14:00 | Outpatient (CLI) | payer MEDICARE, BC, SELFPAY | END 2024-02-25 23:59 | disposition home or self-care (01) | LOC: LAB.DROPOF 02-27 19:25 | PROVIDERS: PCP Nurse Practitioner Family; Visit Provider Nurse Practitioner Family | DX: L03.90 Cellulitis, unspecified (principal) | CPT/HCPCS: 87070; 87077; 87186; 87205 ==

== ENCOUNTER 2024-03-21 12:35 | Outpatient (CLI) | payer MEDICARE, BC, SELFPAY ==
--- NOTE | 2024-03-21 12:38 | XR_ITS ---
FINAL REPORT CLINICAL HISTORY: Left knee pain FINDINGS: LEFT KNEE 3 views of the left knee were obtained. There is no acute fracture or dislocation. Visualized joint spaces are normally aligned. There are mild to moderate degenerative changes with medial compartment joint space narrowing. Soft tissues are unremarkable. IMPRESSION: No acute bony abnormality. Reviewed, Interpreted and Dictated by Rohith Fuentes III, MD Transcribed by Aviva Ayala Authenticated and . [facility]
--- NOTE | 2024-03-21 12:38 | XR_ITS ---
FINAL REPORT CLINICAL HISTORY: right knee pain FINDINGS: RIGHT KNEE 3 views of the right knee were obtained. There is no acute fracture or dislocation. There are mild and moderate degenerative changes. Visualized joint spaces are normally aligned. Soft tissues are unremarkable. IMPRESSION: No acute bony abnormality. Reviewed, Interpreted and Dictated by Rohith Fuentes III, MD Transcribed by Aviva Ayala Authenticated and [facility]
== END 2024-03-21 23:59 | disposition home or self-care (01) ==
LOC: RAD 12:36
PROVIDERS: PCP Nurse Practitioner Family; Visit Provider Physician Assistant
DX: M25.561 Pain in right knee (principal); M25.562 Pain in left knee
CPT/HCPCS: 73562

== ENCOUNTER 2024-05-18 11:27 | Outpatient (CLI) | payer MEDICARE, BC, SELFPAY | END 2024-05-18 23:59 | disposition home or self-care (01) | LOC: LAB.DROPOF 05-19 09:13 | PROVIDERS: PCP Nurse Practitioner; Visit Provider Nurse Practitioner | DX: Z02.9 Encounter for administrative examinations, unspecified (principal) ==

== ENCOUNTER 2024-05-18 11:37 | Outpatient (CLI) | payer MEDICARE, BC, SELFPAY ==
[2024-05-18 12:07] LABS: Basophils # 0.1 K/mm3 (0-0.2); Basophils % 0.8 % (0.1-2.0); Eosinophils # 0.1 K/mm3 (0.0-0.4); Eosinophils % 1.3 % (0.1-12.0); Hemoglobin 13.8 g/dL (14.1-18.0); Lymphocytes % 11.1 % (10-50); Mean Corpuscular HGB Conc 33.6 g/dL (31.8-35.4); Mean Corpuscular Hemoglobin 27.3 pg (27.0-31.2); Mean Corpuscular Volume 81.3 fl (80-94); Mean Platelet Volume 7.9 fl (7.4-10.4); Monocytes # 0.6 K/mm3 (0.1-1.0); Monocytes % 6.3 % (1.7-9.3); Neutrophils # 7.1 K/mm3 (1.8-7.8); Neutrophils % 80.6 % (37.0-80.0); Platelet Count 195 K/mm3 (142-424); Red Blood Count 5.04 M/mm3 (4.60-6.20); Red Cell Distribution Width 16.2 % (11.5-17.5); White Blood Count 8.8 K/mm3 (4.8-10.8)
[2024-05-18 12:15] LABS: Hemoglobin A1C 7.9 % (4.0-6.0)
[2024-05-18 12:34] LABS: Erythrocyte Sedimentation Rate 20 mm/hr (0-15)
[2024-05-18 13:25] LABS: Albumin Level 4.1 g/dl (3.5-5.0); Chloride 98 mmol/L (98-107); Potassium 4.2 mmoL/L (3.5-5.1); Sodium 134 mmol/L (136-145)
[2024-05-18 13:28] LABS: Alanine Aminotransferase 23 U/L (12-78); Albumin/Globulin Ratio 1.2 (1.1-1.8); Alkaline Phosphatase 61 U/L (38-126); Anion Gap 14.2 mEq/L (5-15); Aspartate Amino Transferase 23 U/L (17-59); Blood Urea Nitrogen 16 mg/dl (9-20); Carbon Dioxide 26 mmol/L (22.0-30.0); Estimated Glomerular Filt Rate 121 ml/min (>60); GFR (African American) 147 ML/MIN (>60); Globulin 3.5 g/dL (1.3-3.2); Glucose 206 mg/dl (74-100); Total Protein,Serum 7.6 g/dl (6.3-8.2)
[2024-05-18 13:34] LABS: C-Reactive Protein 46.6 mg/L (0-4)
--- NOTE | 2024-05-18 16:28 | XR_ITS ---
FINAL REPORT CLINICAL HISTORY: left foot wound COMPARISON: 09/11/2022 FINDINGS: Left foot Two views were obtained. There is no fracture or dislocation. There are mild degenerative changes. Calcaneal spurs are identified. There is no evidence of bony erosion. No soft tissue abnormality is identified. IMPRESSION: No acute process. Reviewed, Interpreted and Dictated by Rohith Fuentes III, MD Transcribed by Niyah Sandra Authenticated and . [facility]
--- NOTE | 2024-05-18 16:28 | XR_ITS ---
FINAL REPORT CLINICAL HISTORY: left foot wound COMPARISON: 04/23/2022 FINDINGS: Right foot Three views were obtained. There is no fracture or dislocation. There are mild degenerative changes. Calcaneal spurs are identified. There is no evidence of bony erosion. No soft tissue abnormality is identified. IMPRESSION: No acute process. Reviewed, Interpreted and Dictated by Rohith Fuentes III, MD Transcribed by Niyah Sandra Authenticated and [facility]
== END 2024-05-18 23:59 | disposition home or self-care (01) ==
LOC: RAD 11:39
PROVIDERS: PCP Nurse Practitioner Family; Visit Provider Nurse Practitioner
DX: L97.529 Non-pressure chronic ulcer of other part of left foot with unspecified severity (principal); E66.9 Obesity, unspecified; E11.621 Type 2 diabetes mellitus with foot ulcer
CPT/HCPCS: 36415; 73630; 80053; 83036; 85025; 85651; 86140; 87070; 87077; 87186; 87205

== ENCOUNTER 2024-05-25 14:47 | Outpatient (CLI) | payer MEDICARE, BC, SELFPAY ==
[2024-05-25 15:15] LABS: Anion Gap 17.6 mEq/L (5-15); Blood Urea Nitrogen 25 mg/dl (9-20); Calcium 9.6 mg/dl (8.4-10.2); Carbon Dioxide 22 mmol/L (22.0-30.0); Chloride 100 mmol/L (98-107); Estimated Glomerular Filt Rate 121 ml/min (>60); GFR (African American) 147 ML/MIN (>60); Glucose 278 mg/dl (74-100); Potassium 4.6 mmoL/L (3.5-5.1); Sodium 135 mmol/L (136-145)
== END 2024-05-25 23:59 | disposition home or self-care (01) ==
LOC: LAB 14:50
PROVIDERS: PCP Nurse Practitioner Family; Visit Provider Physician Assistant
DX: E66.01 Morbid (severe) obesity due to excess calories (principal); Z68.44 Body mass index [BMI] 60.0-69.9, adult; I48.0 Paroxysmal atrial fibrillation; E11.42 Type 2 diabetes mellitus with diabetic polyneuropathy; Z79.4 Long term (current) use of insulin; I10 Essential (primary) hypertension; E78.2 Mixed hyperlipidemia; R60.1 Generalized edema; R06.02 Shortness of breath
CPT/HCPCS: 36415; 80048

== ENCOUNTER 2024-06-01 11:26 | Day surgery (SDC) | payer MEDICARE, BC, SELFPAY ==
[2024-06-01] VITALS (10 sets, daily range): BP systolic 108–140; BP diastolic 67–90; PULSE 90–95; RESP 20; O2SAT 96–99; BMI 69.2
--- NOTE | 2024-06-01 12:33 | EXP.ANES.CKL ---
[facility] Disclaimer: The information contained in this section may have been updated after the patient was seen, as this information can be updated by other users. 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 Tachycardia Bilateral knee pain DDD (degenerative disc disease), lumbar Depression Morbid obesity with body mass index of 70 and over in adult CHF (congestive heart failure) COPD (chronic obstructive pulmonary disease) Diabetes Dyspnea BMI 60.0-69.9, adult Obesity Anxiety disorder Hypertension Diabetes type 2, uncontrolled Surgical History S/P gastric sleeve procedure History of gastric bypass Family History Other No significant family history Social History Smoking Status: Former smoker alcohol intake: former year quit: 2021 counseling given: Yes counseling provided: provider counseling substance use type: denies use current occupational status: unemployed and disabled Travel in the last 8 weeks: None household members: spouse and children housing: house marital status: number of children: 1 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 current occupational exposures/hazards: No pets and animals: Yes pets and animals: cat(s) diet: other caffeine: Yes physical activity: none [facility] Anesthesia Checklist Patient Identification Patient Identification: Arm Band Structural Data Admitted From: Home Planned Operative Procedure/s: Cardioversion Consent for Planned Operative Procedure(s) Verified: Yes Verified Documents: Surgical Consent and History and Physical NPO Status Verified Time NPO: 00:00 Additional verifications Anesthesia Reactions: No Hx Blood Transfusions: No Blood Transfusion Reaction: No Airway Assessment Mallampati Score:: Class III C-Spine Mobility Assessed: Yes TMJ Mobility Assessed: Yes Dentition: Good Dentition Neurological Assessment Level of Consciousness: Awake, Alert and Appropriate Anesthesia Plan Anesthesia Risk discussed: Yes Anesthesia Plan: Verified ASA Class: IV Anesthesia Type: MAC
--- NOTE | 2024-06-06 13:27 | EXP.CARDIOVE ---
[facility] Cardioversion Cardioversion Date: 06/01/24 Provider:: Pepe Corbin MD Procedure Performed:: Synchronized electrical cardioversion Diagnosis:: Atrial fibrillation with RVR Procedure Summary:: Patient was brought to the ICU as an outpatient for and electrical cardioversion. After informed consent was obtained, sedation was provided by anesthesia after which the patient received a total of 3 synchronized electrical shocks (a single 150 J, two 200 J shocks) with failure to convert to sinus rhythm. Patient tolerated the procedure without complications. Complications:: None Conculsion:: Routine postop care. Continue home medications with the addition of amiodarone 400 mg 3 times daily until follow-up next week.
== END 2024-06-01 13:35 | disposition home or self-care (01) ==
PROVIDERS: Internal Medicine; PCP Nurse Practitioner Family; Visit Provider Internal Medicine
DX: I48.91 Unspecified atrial fibrillation (principal)
CPT/HCPCS: 92960

== ENCOUNTER 2024-06-08 13:50 | Outpatient (CLI) | payer MEDICARE, BC, SELFPAY ==
[2024-06-08 14:30] LABS: Basophils % 0.5 % (0.1-2.0); Eosinophils # 0.1 K/mm3 (0.0-0.4); Eosinophils % 1.1 % (0.1-12.0); Hematocrit 41.8 % (42.0-52.0); Hemoglobin 13.7 g/dL (14.1-18.0); Lymphocytes # 1.7 K/mm3 (0.7-4.5); Lymphocytes % 19.5 % (10-50); Mean Corpuscular HGB Conc 32.7 g/dL (31.8-35.4); Mean Corpuscular Hemoglobin 26.7 pg (27.0-31.2); Mean Corpuscular Volume 81.8 fl (80-94); Mean Platelet Volume 7.7 fl (7.4-10.4); Monocytes # 0.5 K/mm3 (0.1-1.0); Neutrophils # 6.3 K/mm3 (1.8-7.8); Neutrophils % 72.9 % (37.0-80.0); Platelet Count 185 K/mm3 (142-424); Red Blood Count 5.12 M/mm3 (4.60-6.20); Red Cell Distribution Width 16.1 % (11.5-17.5); White Blood Count 8.7 K/mm3 (4.8-10.8)
[2024-06-08 14:43] LABS: Albumin Level 3.9 g/dl (3.5-5.0); Chloride 104 mmol/L (98-107); Sodium 138 mmol/L (136-145)
[2024-06-08 14:45] LABS: Bilirubin,Unconjugated 0.7 mg/dL (0.0-1.1); Blood Urea Nitrogen 16 mg/dl (9-20); Estimated Glomerular Filt Rate 121 ml/min (>60); GFR (African American) 147 ML/MIN (>60)
[2024-06-08 14:46] LABS: Alanine Aminotransferase 24 U/L (12-78); Alkaline Phosphatase 51 U/L (38-126); Aspartate Amino Transferase 23 U/L (17-59); Bilirubin,Direct 0.3 mg/dl (0.0-0.4); Bilirubin,Indirect 0.6 mg/dL (0.0-0.9); Bilirubin,Total 0.9 mg/dl (0.2-1.3); Calcium 9.2 mg/dl (8.4-10.2); Carbon Dioxide 26 mmol/L (22.0-30.0); Chol/HDL Ratio 2.5 (1-3.5); Cholesterol 121 mg/dl (140-200); Glucose 102 mg/dl (74-100); HDL Cholesterol 48 mg/dl (40-60); Magnesium 1.8 mg/dl (1.6-2.3); Total Protein,Serum 6.8 g/dl (6.3-8.2); Triglycerides 84 mg/dl (30-150); VLDL Cholesterol 17 mg/dL (0-40)
[2024-06-08 14:57] LABS: Direct LDL Cholesterol 58.21 mg/dL (100-129)
[2024-06-08 15:03] LABS: Free T4 (Free Thyroxine) 1.36 ng/dl (0.78-2.19)
[2024-06-08 15:16] LABS: Thyroid Stimulating Hormone 2.97 uIU/mL (0.465-4.68)
== END 2024-06-08 23:59 | disposition home or self-care (01) ==
LOC: LAB 13:54
PROVIDERS: PCP Nurse Practitioner Family; Visit Provider Internal Medicine
DX: I48.0 Paroxysmal atrial fibrillation (principal); R06.02 Shortness of breath; E11.42 Type 2 diabetes mellitus with diabetic polyneuropathy; Z79.4 Long term (current) use of insulin; E66.01 Morbid (severe) obesity due to excess calories; Z68.45 Body mass index [BMI] 70 or greater, adult; I10 Essential (primary) hypertension; E78.2 Mixed hyperlipidemia; R60.0 Localized edema; Z90.3 Acquired absence of stomach [part of]; Z86.79 Personal history of other diseases of the circulatory system
CPT/HCPCS: 36415; 80048; 80061; 80076; 83735; 84439; 84443; 85025

== ENCOUNTER 2024-07-28 14:33 | Outpatient (CLI) | payer MEDICARE, BC, SELFPAY ==
[2024-07-28 15:07] LABS: Basophils % 0.3 % (0.1-2.0); Eosinophils % 0.2 % (0.1-12.0); Hemoglobin 13.9 g/dL (14.1-18.0); Lymphocytes # 1.8 K/mm3 (0.7-4.5); Lymphocytes % 14.4 % (10-50); Mean Corpuscular HGB Conc 31.6 g/dL (31.8-35.4); Mean Corpuscular Hemoglobin 25.6 pg (27.0-31.2); Mean Platelet Volume 9.9 fl (7.4-10.4); Monocytes % 8.3 % (1.7-9.3); Neutrophils # 9.3 K/mm3 (1.8-7.8); Neutrophils % 76.1 % (37.0-80.0); Platelet Count 262 K/mm3 (142-424); Red Blood Count 5.43 M/mm3 (4.60-6.20); Red Cell Distribution Width 16.1 % (11.5-17.5); White Blood Count 12.2 K/mm3 (4.8-10.8)
[2024-07-28 15:32] LABS: Free T4 (Free Thyroxine) 1.98 ng/dl (0.78-2.19)
[2024-07-28 15:41] LABS: Albumin Level 4.2 g/dl (3.5-5.0); Chloride 98 mmol/L (98-107)
[2024-07-28 15:42] LABS: Potassium 4.3 mmoL/L (3.5-5.1); Sodium 134 mmol/L (136-145)
[2024-07-28 15:44] LABS: Anion Gap 16.3 mEq/L (5-15); Bilirubin,Unconjugated 0.5 mg/dL (0.0-1.1); Blood Urea Nitrogen 26 mg/dl (9-20); Carbon Dioxide 24 mmol/L (22.0-30.0); Estimated Glomerular Filt Rate 104 ml/min (>60); GFR (African American) 125 ML/MIN (>60); Total Protein,Serum 7.2 g/dl (6.3-8.2)
[2024-07-28 15:45] LABS: Alanine Aminotransferase 28 U/L (12-78); Alkaline Phosphatase 60 U/L (38-126); Aspartate Amino Transferase 28 U/L (17-59); Bilirubin,Direct 0.2 mg/dl (0.0-0.4); Bilirubin,Indirect 0.5 mg/dL (0.0-0.9); Bilirubin,Total 0.7 mg/dl (0.2-1.3); Calcium 9.9 mg/dl (8.4-10.2); Cholesterol 132 mg/dl (140-200); Glucose 130 mg/dl (74-100); HDL Cholesterol 44 mg/dl (40-60); Triglycerides 129 mg/dl (30-150); VLDL Cholesterol 26 mg/dL (0-40)
[2024-07-28 16:15] LABS: Thyroid Stimulating Hormone 6.09 uIU/mL (0.465-4.68)
== END 2024-07-28 23:59 | disposition home or self-care (01) ==
LOC: LAB 14:36
PROVIDERS: PCP Nurse Practitioner Family; Visit Provider Internal Medicine
DX: E78.2 Mixed hyperlipidemia (principal); I50.9 Heart failure, unspecified; I10 Essential (primary) hypertension; E78.5 Hyperlipidemia, unspecified
CPT/HCPCS: 36415; 80048; 80061; 80076; 84439; 84443; 85025

== ENCOUNTER 2024-08-18 13:05 | Outpatient (CLI) | payer MEDICARE, BC, SELFPAY ==
[2024-08-18 14:22] LABS: Chloride 97 mmol/L (98-107)
[2024-08-18 14:23] LABS: Potassium 4.2 mmoL/L (3.5-5.1); Sodium 135 mmol/L (136-145)
[2024-08-18 14:25] LABS: Alanine Aminotransferase 32 U/L (12-78); Anion Gap 14.2 mEq/L (5-15); Aspartate Amino Transferase 28 U/L (17-59); Blood Urea Nitrogen 18 mg/dl (9-20); Carbon Dioxide 28 mmol/L (22.0-30.0); Estimated Glomerular Filt Rate 121 ml/min (>60); GFR (African American) 146 ML/MIN (>60)
[2024-08-18 14:26] LABS: Albumin/Globulin Ratio 1.4 (1.1-1.8); Alkaline Phosphatase 62 U/L (38-126); Bilirubin,Total 0.9 mg/dl (0.2-1.3); Calcium 9.2 mg/dl (8.4-10.2); Cholesterol 122 mg/dl (140-200); Globulin 2.8 g/dL (1.3-3.2); Glucose 233 mg/dl (74-100); HDL Cholesterol 41 mg/dl (40-60); Total Protein,Serum 6.8 g/dl (6.3-8.2); Triglycerides 142 mg/dl (30-150); VLDL Cholesterol 28 mg/dL (0-40)
[2024-08-18 14:37] LABS: Direct LDL Cholesterol 59.74 mg/dL (100-129)
[2024-08-18 14:43] LABS: Free T4 (Free Thyroxine) 1.76 ng/dl (0.78-2.19)
[2024-08-18 14:56] LABS: Thyroid Stimulating Hormone 2.25 uIU/mL (0.465-4.68)
== END 2024-08-18 23:59 | disposition home or self-care (01) ==
LOC: LAB 13:11
PROVIDERS: PCP Nurse Practitioner Family; Visit Provider Nurse Practitioner Family
DX: E11.65 Type 2 diabetes mellitus with hyperglycemia (principal); Z79.4 Long term (current) use of insulin
CPT/HCPCS: 36415; 80053; 80061; 84439; 84443

== ENCOUNTER 2024-09-19 10:04 | Outpatient (CLI) | payer MEDICARE, BC, SELFPAY ==
--- NOTE | 2024-09-19 | CA_ITS ---
APPROVED REPORT EXAM: Comprehensive 2D, Doppler, and color-flow Echocardiogram Support Merchandiser: Jing Crooks RT(R) Ht: 6 ft 1 in Wt: 559lbs BSA: 3.33 BP: 143/86 mmHg Indications: AFIB, HTN, HLD, DM, CHF, HX gastric bypass. limited scanning secondary to body habitus Echo Enhancing Agent Indication: Endocardial border delineation Agent(s) / Amount(s) Used: Definity 2 cc M-Mode Dimensions RVDd 3.44 cm (0.9-2.6) LA Diam 4.13 cm (1.9-4.0) LVDd 5.85 cm (3.5-5.7) LVDs 4.31 cm (3.5-5.7) IVSd 1.23 cm (0.6-1.1) PWd 1.13 cm (0.6-1.1) EF (Teich) 50.90% FS 26.30% EDV (Teich) 169.90 mL ESV (Teich) 83.50 mL LV Diastology E Decel Time 227 (160-240 msec) E/A Ratio 2.5 Mitral Valve MV E Max Anthony. 68.0 (40-130 cm/s) MV A Velocity 27.0 (40-130 cm/s) E/A Ratio 2.55 MV PHT 66.0 ms Left Ventricle The left ventricle is normal size. The left ventricular systolic function is normal. The left ventricular ejection fraction is within the normal range. There is normal left ventricular wall thickness. There is normal LV segmental wall motion. Diastolic function is indeterminate. No left ventricle thrombus noted on this study. LVEF is 50-55%. Right Ventricle The right ventricle is not very well-visualized, but grossly appears normal in size and function. Atria The left atrium size is normal. The right atrium is not well-visualized. The interatrial septum is not well-visualized. Aortic Valve Aortic valve opens well. There is no aortic valvular stenosis. No aortic regurgitation is present. Mitral Valve The mitral valve is normal in structure. No evidence of mitral valve stenosis. There is no mitral valve regurgitation noted. Tricuspid Valve Tricuspid valve leaflets are not well-visualized. Trace tricuspid regurgitation. There is insufficient TR jet to estimate RVSP. Pulmonic Valve The pulmonic valve is not well-visualized. Trace pulmonic regurgitation. Great Vessels The aortic root is normal in size. The IVC is not well-visualized. Pericardium There is no pericardial effusion. Other Information Study Quality: Technically Difficult Conclusion Technically difficult and limited study due to poor acoustic windows. Grossly, normal biventricular systolic function. No significant valvular stenosis or regurgitation in the visualized valves. Electronically signed by : Lynne Corbin MD 09/26/2024 12:28:10
[2024-09-19] MEDS: DEFINITY US ECHO CONTRAST 2ML INJ 2 MG IV (11:31)
== END 2024-09-19 23:59 | disposition home or self-care (01) ==
LOC: RT 10:05
PROVIDERS: PCP Nurse Practitioner Family; Visit Provider Student in an Organized Health Care Education/Training Program
DX: I48.0 Paroxysmal atrial fibrillation (principal); I11.0 Hypertensive heart disease with heart failure; I50.9 Heart failure, unspecified; Z98.84 Bariatric surgery status
CPT/HCPCS: 93306; Q9957

== ENCOUNTER 2024-10-03 19:33 | Emergency (ER) | payer MEDICARE, BC, SELFPAY ==
[2024-10-03 19:37] VITALS: BP 215/79; PULSE 64; RESP 18; TEMP 36.8; O2SAT 95; BMI 73.6
--- NOTE | 2024-10-03 19:42 | ECG_ITS ---
APPROVED REPORT Exam: Resting ECG HR:84 bpm ECG Measurements Heart Rate 84 AXES QRSd 119 QRS -65 QT 421 T 47 QTc 461 Conclusion ATRIAL FIBRILLATION WITH ABERRANT CONDUCTION OR VENTRICULAR PREMATURE COMPLEXES LOW QRS VOLTAGE IN PRECORDIAL LEADS [QRS DEFLECTION < 1.0 mV IN CHEST LEADS] INCOMPLETE RIGHT BUNDLE BRANCH BLOCK [90+ ms QRS DURATION, TERMINAL R IN V1/V2, 40+ ms S IN I/aVL/V4/V5/V6] POSSIBLE ANTERIOR MYOCARDIAL INFARCTION , OF INDETERMINATE AGE [30 ms Q WAVE IN V3/V4, OR R < 0.2 mV IN V4] INFERIOR MYOCARDIAL INFARCTION , PROBABLY OLD [40+ ms Q WAVE AND/OR ST/T ABNORMALITY IN II/aVF] ST DEVIATION AND MODERATE T-WAVE ABNORMALITY, CONSIDER LATERAL ISCHEMIA [-0.1+ mV T-WAVE IN I/aVL/V5/V6] ABNORMAL ECG Electronically signed by : YAHIR MEJIA, 10/04/2024 00:18:31
--- NOTE | 2024-10-03 19:46 | XR_ITS ---
PROCEDURE INFORMATION: Exam: XR Chest Exam date and time: 10/03/2024 8:52 PM Age: 49 years old Clinical indication: Cough and shortness of breath; Additional info: SOB cough TECHNIQUE: Imaging protocol: Radiologic exam of the chest. Views: 2 views. PA and Lateral COMPARISON: CR XR CHEST PORTABLE 02/18/2024 2:21 PM FINDINGS: Tubes, catheters and devices: None. Lungs: Mild bilateral perihilar and basilar interstitial lung opacities, suggesting pulmonary edema versus infiltrates. No consolidation. Pleural spaces: No pleural effusion. No pneumothorax. Heart/Mediastinum: Cardiac silhouette appears moderately enlarged. Bones/joints: Mild to moderate generalized bony degenerative changes. Bony structures appear otherwise unremarkable. Soft tissues: This study is severely limited by patient's large body habitus. IMPRESSION: 1. Moderate enlarged cardiac silhouette. 2. Mild interstitial pulmonary edema versus infiltrates.
--- NOTE | 2024-10-03 19:48 | ECG_ITS ---
APPROVED REPORT Exam: Resting ECG HR:63 bpm ECG Measurements Heart Rate 63 AXES QRSd 158 QRS -49 QT 350 T 45 QTc 358 Conclusion ATRIAL FIBRILLATION INTRAVENTRICULAR CONDUCTION DELAY [130+ ms QRS DURATION] ABNORMAL ECG Electronically signed by : YAHIR MEJIA, 10/04/2024 00:18:17
[2024-10-03 19:50] LABS: Coronavirus 19, PCR Not Detected (NotDetected); Influenza B, PCR Not Detected (NotDetected)
[2024-10-03 20:00] VITALS: BP 150/97; PULSE 67; O2SAT 92
[2024-10-03 20:13] LABS: Basophils % 0.4 % (0.1-2.0); Eosinophils % 0.2 % (0.1-12.0); Hematocrit 43.7 % (42.0-52.0); Lymphocytes # 1.4 K/mm3 (0.7-4.5); Lymphocytes % 17.7 % (10-50); Mean Corpuscular Hemoglobin 25.8 pg (27.0-31.2); Mean Corpuscular Volume 80.6 fl (80-94); Mean Platelet Volume 9.7 fl (7.4-10.4); Monocytes # 0.5 K/mm3 (0.1-1.0); Monocytes % 5.8 % (1.7-9.3); Neutrophils # 6.1 K/mm3 (1.8-7.8); Neutrophils % 75.7 % (37.0-80.0); Platelet Count 186 K/mm3 (142-424); Red Blood Count 5.42 M/mm3 (4.60-6.20); Red Cell Distribution Width 15.3 % (11.5-17.5)
[2024-10-03 20:14] LABS: VBG Base Excess 4.5 mmol/L (-2.4-2.3); VBG HCO3 28.4 mmol/L (23-30); VBG Oxygen Saturation 91.6 % (50-70); VBG PCO2 40.7 mmol/L (35-51); VBG PH 7.46 mmol/L (7.31-7.41); VBG PO2 62.6 mmol/L (28-40); VBG Total CO2 29.6 mmol/L (23-27)
[2024-10-03 20:15] LABS: Lactate Venous 3.7 mmol/L (0.4-2.0)
[2024-10-03] MEDS: MAGNESIUM SULFATE IN WATER 2 GM/50 ML PIGGYBACK IV (20:26)
[2024-10-03 20:27] LABS: Chloride 94 mmol/L (98-107)
[2024-10-03 20:28] LABS: Albumin Level 4.2 g/dl (3.5-5.0); Potassium 3.3 mmoL/L (3.5-5.1); Sodium 134 mmol/L (136-145)
[2024-10-03] MEDS: IPRATROPIUM/ALBUTEROL 3 ML NEB 9 ML IH (20:29)
--- NOTE | 2024-10-03 20:29 | ED_ITS ---
Discharge Plan Disposition Patient Disposition: Home, Self-Care Chief Complaint: Shortness of Breath/Dyspnea Prescriptions Prescriptions: No Action (DME) insulin syringe-needle U-100 [BD Insulin Syringe Ultra-Fine] 1 mL 30 gauge x 1/2 syringe See Rx Instructions .ROUTE .MEDSUPPLY Qty: 10 Rx Instructions: As directed ammonium lactate 12 % cream 1 applic topical BID Qty: 385 3RF (DME) pen needle, diabetic [Comfort EZ Pen Blackwell] 32 gauge x / needle See Rx Instructions .Route Qty: 100 0RF Rx Instructions: As directed meloxicam 7.5 mg tablet 7.5 mg PO DAILY Qty: 30 2RF mupirocin 2 % ointment 1 applic topical BID 14 Days Qty: 50 3RF diltiazem HCl 120 mg capsule,extended release 24hr 120 mg PO DAILY Qty: 90 3RF mupirocin 2 % ointment 1 applic topical BID 14 Days Qty: 22 2RF amiodarone 200 mg tablet 200 mg PO DAILY Qty: 90 3RF hydrocodone-acetaminophen 10-325 mg tablet 1 tab PO TIDP PRN (Reason: pain) Qty: 90 0RF azithromycin 250 mg tablet See Rx Instructions PO .COMPLEX Qty: 6 0RF Rx Instructions: take 500 mg today (day 1), then 250 mg for 4 days (days 2-5) prednisone 20 mg tablet 20 mg PO BID 5 Days Qty: 10 0RF benzonatate 100 mg capsule 100 mg PO TID PRN (Reason: cough) Qty: 30 0RF gabapentin 600 mg tablet 600 mg PO TID Qty: 90 2RF lorazepam 1 mg tablet 1 mg PO DAILYP PRN (Reason: anxiety) Qty: 15 2RF Rx Instructions: +++Monthly+++ albuterol sulfate 90 mcg/actuation HFA aerosol inhaler 2 puff inhalation Q4-6H PRN (Reason: shortness of breath or wheezing) Qty: 8.5 3RF tamsulosin 0.4 mg capsule 0.4 mg PO HS Qty: 90 3RF Rx Instructions: TAKE 1 CAPSULE BY MOUTH ONCE DAILY torsemide 20 mg tablet 20 mg PO DIRECTED PRN (Reason: edema) Qty: 180 3RF Rx Instructions: Take 20mg t//Thu/Thu Take 40mg on // Vraylar 3 mg capsule 3 mg PO DAILY Qty: 90 1RF atorvastatin 40 mg tablet 40 mg PO HS Qty: 90 1RF Rx Instructions: TAKE 1 TABLET BY MOUTH EVERY DAY AT BEDTIME FOR CHOLESTEROL venlafaxine 150 mg capsule,extended release 24hr See Rx Instructions .ROUTE .COMPLEX Qty: 90 3RF Dose Instruction: TAKE 1 TABLET BY MOUTHJ= DAILY TAKE 1 CAPSULE BY MOUTH EVERY DAY Rx Instructions: TAKE 1 TABLET BY MOUTHJ= DAILY TAKE 1 CAPSULE BY MOUTH EVERY DAY Eliquis 5 mg tablet 5 mg PO BID Qty: 60 3RF spironolactone 50 mg tablet See Rx Instructions .ROUTE .COMPLEX Qty: 90 3RF Dose Instruction: TAKE 1 TABLET BY MOUTH EVERY DAY Rx Instructions: TAKE 1 TABLET BY MOUTH EVERY DAY omeprazole 40 mg capsule,delayed release(DR/EC) 40 mg PO BID Rx Instructions: TAKE 1 CAPSULE BY MOUTH TWICE A DAY FOR GERD bisoprolol fumarate 5 mg tablet 5 mg PO BID Rx Instructions: TAKE 1 TABLET BY MOUTH TWICE A DAY FOR BLOOD PRESSURE trazodone 100 mg tablet 100 mg PO HS Rx Instructions: TAKE 1 TABLET AT BEDTIME metformin 1,000 mg tablet 1,000 mg PO BID metoclopramide HCl 10 mg tablet 10 mg PO QID Rx Instructions: TAKE 1 TABLET BY MOUTH FOUR TIMES A DAY FOR ACID REFLUX Xarelto 20 mg tablet 20 mg PO QPMWITHMEAL Rx Instructions: TAKE 1 TABLET BY MOUTH EVERY DAY FOR A FIB Referrals Follow up/Referrals: Malcolm Hayward APRN [Primary Care Provider] - See instructions Activity Restrictions/Add. Instructions Additional Instructions/Restrictions: At this time it was felt you are safe to be discharged home. If new or worsening symptoms please do not hesitate to return the emergency department. As discussed please double up on your water pills over the next few days and then go back to taking them as they were prescribed. Please follow-up with your family doctor later this week to ensure that your symptoms are headed in the right direction. Influenza this year is lasting between 7 and 14 days. Clinical Impressions Clinical Impression: Influenza A, Volume overload Print Language Print Language: Khmer Discharge ED Provider: Eliazar Acuña General Chief Complaint: Shortness of Breath/Dyspnea Stated Complaint: SOA, HORNER, body aches Time Seen by Provider: 10/03/24 19:46 Mode of Arrival: Ambulatory Source of Information: Patient Description of Symptoms (Recalled from ER Triage Doc. by RN): pt presents for evaluatin of worsening shortness of breath. Pt had a cough x 1 week ago, pt was placed on antibiotics, steroids, and an inhaler. History of Present Illness HPI narrative: Patient is a 49-year-old male with past medical history of paroxysmal atrial fibrillation on anticoagulation diastolic heart failure on diuretics, COPD not on oxygen, diabetes who presents to the emergency department for evaluation of shortness of breath and cough. History is obtained by patient at bedside. He has been intermittently compliant with his diuretics over the last week and has had sick contacts at home resulting in productive cough and shortness of breath ultimately was diagnosed with pneumonia on outpatient basis completed a course of azithromycin and steroids. He is feeling actually better than he was previously however due to persistent shortness of breath he presents here for continued evaluation. No other acute complaints at this time. Please note that above description of symptoms, in this electronic medical record under categorization of recalled from ER triage doctor by RN are reflective of an initial nursing assessment, however, is not reflective of my full history and physical exam that was personally taken and clarified. Consequentially, this preceding description of symptoms, which may include the patient's categorized chief complaint in the EMR, do not reflect my personal clinical impression, and the ultimate description of history of present illness and patient stated complaints should be deferred to this section of the note. Unless stated otherwise or congruent with this section of the note, additional signs, symptoms, or incongruence should be interpreted as inaccurate with my clinical impression. Related Data Home Medications ?Medication ?Instructions ?Recorded ?Confirmed bisoprolol fumarate 5 mg tablet 5 mg PO BID 02/18/24 09/27/24 insulin syringe-needle U-100 1 mL #10 ea 02/18/24 09/27/24 30 gauge x 1/2 (BD Insulin Syringe Ultra-Fine) metformin 1,000 mg tablet 1,000 mg PO BID 02/18/24 09/27/24 metoclopramide HCl 10 mg tablet 10 mg PO QID 02/18/24 09/27/24 omeprazole 40 mg capsule,delayed 40 mg PO BID 02/18/24 09/27/24 release rivaroxaban 20 mg tablet (Xarelto) 20 mg PO QPMWITHMEAL 02/18/24 09/27/24 trazodone 100 mg tablet 100 mg PO HS 02/18/24 09/27/24 Previous Rx's ?Medication ?Instructions ?Recorded pen needle, diabetic 32 gauge x #100 ea 09/16/23 (Comfort EZ Pen Blackwell) meloxicam 7.5 mg tablet 7.5 mg PO DAILY #30 tabs 03/29/24 ammonium lactate 12 % topical cream 1 applic topical BID dry skin, 04/19/24 callus care #385 grams tamsulosin 0.4 mg capsule 0.4 mg PO HS #90 caps 04/23/24 mupirocin 2 % topical ointment 1 applic topical BID infection 14 06/13/24 days #50 grams diltiazem HCl 120 mg 120 mg PO DAILY #90 caps 06/23/24 capsule,extended release 24 hr amiodarone 200 mg tablet 200 mg PO DAILY #90 tabs 07/28/24 torsemide 20 mg tablet 20 mg PO DIRECTED PRN edema 07/29/24 #180 tabs cariprazine 3 mg capsule (Vraylar) 3 mg PO DAILY #90 caps 08/09/24 atorvastatin 40 mg tablet 40 mg PO HS #90 tabs 08/22/24 mupirocin 2 % topical ointment 1 applic topical BID infection 14 08/25/24 days #22 grams venlafaxine 150 mg See Rx Instructions .Route 09/18/24 capsule,extended release 24 hr .COMPLEX #90 caps apixaban 5 mg tablet (Eliquis) 5 mg PO BID #60 tabs 09/19/24 spironolactone 50 mg tablet See Rx Instructions .Route 09/26/24 .COMPLEX #90 tabs albuterol sulfate 90 mcg/actuation 2 puff inhalation Q4-6H PRN 09/27/24 aerosol inhaler shortness of breath or wheezing #8.5 grams azithromycin 250 mg tablet See Rx Instructions PO .COMPLEX #6 09/27/24 tabs benzonatate 100 mg capsule 100 mg PO TID PRN cough #30 caps 09/27/24 gabapentin 600 mg tablet 600 mg PO TID #90 tabs 09/27/24 hydrocodone 10 mg-acetaminophen 1 tab PO TIDP PRN pain #90 tabs 09/27/24 325 mg tablet lorazepam 1 mg tablet 1 mg PO DAILYP PRN anxiety #15 tabs 09/27/24 prednisone 20 mg tablet 20 mg PO BID 5 days #10 tabs 09/27/24 Allergies Allergy/AdvReac Type Severity Reaction Status Date / Time clindamycin Allergy Mild Nausea Verified 09/27/24 15:13 doxycycline AdvReac Mild Upset Verified 09/27/24 15:13 stomach, heartbur PFSH [facility], [facility] Disclaimer: The information contained in this section may have been updated after the patient was seen, as this information can be updated by other users. 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 Tachycardia Bilateral knee pain DDD (degenerative disc disease), lumbar Depression Morbid obesity with body mass index of 70 and over in adult CHF (congestive heart failure) COPD (chronic obstructive pulmonary disease) Diabetes Dyspnea BMI 60.0-69.9, adult Obesity Anxiety disorder Hypertension Diabetes type 2, uncontrolled Surgical History S/P gastric sleeve procedure History of gastric bypass Family History Other No significant family history Social History Smoking Status: Former smoker alcohol intake: former year quit: 2021 counseling given: Yes counseling provided: provider counseling substance use type: denies use current occupational status: unemployed and disabled Travel in the last 8 weeks: None household members: spouse and children housing: house marital status: number of children: 1 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 current occupational exposures/hazards: No pets and animals: Yes pets and animals: cat(s) diet: other caffeine: Yes physical activity: none Have you lived/traveled outside [place] in past 30 days?: No Contact w/someone who lives/traveled outside [place] past 30 days?: No Exposure to someone with infectious disease in past 14 days?: No Do you have a fever (greater than 100.4 F or 38 C)?: No Have you tested positive for COVID-19: No Exposed to someone with COVID-19 in past 14 days?: No Do you have a sore throat?: No Do you have a cough?: No Do you have any weakness?: No Do you have any diarrhea?: No Are you experiencing any unusual bleeding?: No Do you have any muscle aches/pain?: Yes Do you have any abdominal pain?: No Are you experiencing loss of taste or smell?: No Other Medical History Have you received the Flu Vaccine for this season: No Have you received the Pneumonia Vaccine: No ROS Obtained: Yes Systems reviewed as appropriate & no additional complaints except as documented Physical Exam General General appearance: alert and in no apparent distress Head Head exam: atraumatic and normocephalic Eye Eye exam: Present PERRL and EOMI ENT ENT exam: Present mucous membranes moist Neck Neck exam: Present normal inspection Chest Chest inspection: Present normal inspection and symmetric chest wall rise Respiratory Respiratory exam: Present normal lung sounds bilaterally and wheezes (Wheezes bilateral upper lobes right greater than left); Absent respiratory distress Cardiovascular Cardiovascular exam: Present regular rate and normal rhythm Abdominal Exam Abdominal exam: Present soft; Absent tenderness Extremities Exam Extremities exam: Present other (Frankly edematous lower extremities) Neurological Exam Neurological exam: Present alert Psychiatric Psychiatric exam: Present normal affect Skin Skin exam: Present warm and dry HEART Score HEART Score HEART Score assessment performed?: Yes History (anamnesis): Slightly suspicious ECG: Normal Age: 45-65 years Risk factors: Atherosclerosis history Troponin: </= normal limit HEART Score: 3 Critical Care Critical Care Time Critical Care Time: Yes Attestation: On 10/03/24, the high probability of a clinically significant, sudden or life threatening deterioration of the following system(s) required my full and direct attention, intervention and personal management. The time I documented below is in addition to time spent performing reported procedures but includes the following listed in this critical care notation. Total Time Total Critical Care Time: 35 Medical Decision Making Sy Inquiry Pt receiving controlled substance: No Vital Signs Vital Signs: 10/03/24 19:37 10/03/24 20:00 10/03/24 20:30 Temperature 98.3 F Temperature Source Oral Pulse Rate 67 64 Pulse Rate [Right] 64 Respiratory Rate 18 10 L Blood Pressure 150/97 H 148/87 H Blood Pressure [Right Arm] 215/79 H Blood Pressure Mean [Right Arm] 124 Blood Pressure Source [Right Arm] Automatic Cuff Blood Pressure Position [Right Arm] Sitting 02 Sat by Pulse Oximetry 95 92 L 96 Oxygen Delivery Method Room Air 10/03/24 20:50 10/03/24 20:50 Temperature Temperature Source Pulse Rate 65 72 Pulse Rate [Right] Respiratory Rate Blood Pressure Blood Pressure [Right Arm] Blood Pressure Mean [Right Arm] Blood Pressure Source [Right Arm] Blood Pressure Position [Right Arm] 02 Sat by Pulse Oximetry Oxygen Delivery Method Lab Data Labs: Lab Results 10/03/24 19:41: SARS-CoV-2 (PCR) Not detected, Influenza A Untype (PCR) Detected A, Influenza Type B (PCR) Not detected 10/03/24 19:46: VBG pH 7.46 H, VBG pCO2 40.7, VBG pO2 62.6 H, VBG HCO3 28.4, VBG Total CO2 29.6 H, VBG O2 Saturation 91.6 H, VBG Base Excess 4.5 H, VBG Lactic Acid 3.7 H 10/03/24 20:04: WBC 8.0, RBC 5.42, Hgb 14.0 L, Hct 43.7, MCV 80.6, MCH 25.8 L, MCHC 32.0, RDW 15.3, Plt Count 186, MPV 9.7, Neut % (Auto) 75.7, Lymph % (Auto) 17.7, [place] % (Auto) 5.8, Eos % (Auto) 0.2, Baso % (Auto) 0.4, Neut # (Auto) 6.1, Lymph # (Auto) 1.4, [place] # (Auto) 0.5, Eos # (Auto) 0.0, Baso # (Auto) 0.0, S odium 134 L, Potassium 3.3 L, Chloride 94 L, Carbon Dioxide 33 H, Anion Gap 10.3, BUN 17, Creatinine 0.70, Estimated Creat Clear 143, Estimated GFR 121, Est GFR ( Amer) 146, Glucose 244 H, Calcium 9.6, Total Bilirubin 0.8, AST 35, ALT 32, Alkaline Phosphatase 67, Troponin I < 0.01, NT-Pro-B Natriuret Pep < 20.0, Total Protein 7.6, Albumin 4.2, Globulin 3.4 H, Albumin/Globulin Ratio 1.2 10/03/24 20:04 10/03/24 20:04 Response Orders (Tests/Meds): ED MEDICATIONS Discontinued Medications Generic Name Dose Route Start Last Admin Trade Name Freq PRN Reason Stop Dose Admin Albuterol/Ipratropium 9 ml 10/03/24 20:18 10/03/24 20:29 Ipratropium/Albuterol 3 Ml Neb IH 10/03/24 20:19 9 ml ONCE ONE Administration Magnesium Sulfate 2 gm in 50 mls @ 50 mls/hr 10/03/24 20:18 10/03/24 20:26 Magnesium Sulfate 2gm/50ml Premix IV 10/03/24 21:17 50 mls/hr ONCE ONE Administration ORDERS Category Date Time Status CXR 2 view (NOT portable) [XR chest 2V] Stat Exams 10/03/24 19:46 Completed POCUS Point of Care (ER Only) Stat Exams 10/03/24 19:47 Completed BNP [NT Pro Brain Natriuretic Pep.] Stat Lab 10/03/24 20:04 Completed CBC w/Auto Diff [Complete Blood Count Auto Diff] Stat Lab 10/03/24 20:04 Completed CMP [Comprehensive Metabolic Panel] Stat Lab 10/03/24 20:04 Completed Rapid PCR Covid and Flu A/B Stat Lab 10/03/24 19:41 Completed Trop I [Troponin I] Stat Lab 10/03/24 20:04 Completed Troponin I Q3H Lab 10/03/24 23:00 Ordered Troponin I Q3H Lab 10/04/24 02:00 Ordered VBG [Venous Blood Gas] Stat RT 10/03/24 19:46 Completed ECG Data Tracing #1: ECG Narrative: Independently interpreted by me, rate 63, rhythm is irregular, atrial fibrillation with bundle branch block, no ST elevation in anatomical contiguous leads, QTc 358. Tracing #2: ECG Narrative: Independently interpreted by me rate is 84, rhythm is irregular, atrial fibrillation with bundle branch block, significant chatter, no ST elevation in anatomical contiguous leads, QTc 461. MDM Narrative Medical Decision Narrative: In summary patient is a 49-year-old male past medical history described above who presents emergency department for evaluation of cough, shortness of breath in the setting of diastolic heart failure recently on steroids for a COPD exacerbation. Patient is hemodynamically stable nontoxic-appearing arrival, afebrile. Initial blood pressure was 215 systolic however upon sitting for a few minutes his 150/97. He does have wheezing. I suspect that patient has persistent respiratory infection and is confounded by volume overload that is mild. Patient does not have acute hypoxic respiratory failure and does not want to take diuretics here and rather with double up at home if I can get him turned around. Given this I will give him DuoNebs x 3, IV magnesium. Chest x-ray will be obtained hematologic labs will be obtained. No additional steroids will be administered. VBG will be obtained. Initial workup reviewed by me, hematologic labs are largely nonactionable, no significant leukocytosis no significant anemia, compensated acid-base status, mild hypokalemia which will be repleted orally initial troponin undetectably low, BNP undetectably low although can be false negative with body habitus. Viral swab positive for influenza A. Chest x-ray has interstitial infiltrates which may be vascular congestion and patient has no lobar opacities to suggest superimposed bacterial pneumonia. Given this patient has influenza A and mild volume overload. Outside the window for Tamiflu treatment. On repeat evaluation patient continued to saturate well on room air in the low 90s which I would expect for patient with COPD. Patient is in no significant respiratory distress and is appropriate for outpatient management at this time. He will double up on his diuretics over the next few days and will continue to follow-up on an outpatient basis to ensure his symptoms are getting better.
[2024-10-03 20:30] VITALS: BP 148/87; PULSE 64; RESP 10; O2SAT 96
[2024-10-03 20:30] LABS: Blood Urea Nitrogen 17 mg/dl (9-20); Creatinine Clearance Estimated 143 mL/min (50-200); Estimated Glomerular Filt Rate 121 ml/min (>60); GFR (African American) 146 ML/MIN (>60)
[2024-10-03 20:31] LABS: Alanine Aminotransferase 32 U/L (12-78); Albumin/Globulin Ratio 1.2 (1.1-1.8); Alkaline Phosphatase 67 U/L (38-126); Anion Gap 10.3 mEq/L (5-15); Aspartate Amino Transferase 35 U/L (17-59); Bilirubin,Total 0.8 mg/dl (0.2-1.3); Calcium 9.6 mg/dl (8.4-10.2); Carbon Dioxide 33 mmol/L (22.0-30.0); Globulin 3.4 g/dL (1.3-3.2); Glucose 244 mg/dl (74-100); Total Protein,Serum 7.6 g/dl (6.3-8.2)
[2024-10-03 20:40] LABS: NT Pro Brain Natriuretic Pep. < 20.0 pg/mL (0-125)
[2024-10-03 20:50] VITALS: PULSE 65; PULSE 72
[2024-10-03 20:53] LABS: Troponin I < 0.01 ng/ml (0.00-0.034)
[2024-10-03 21:51] LABS: Influenza A, PCR Detected (NotDetected)
[2024-10-03 22:43] VITALS: BP 183/104; PULSE 88; RESP 20; TEMP 36.9; O2SAT 90
[2024-10-03 23:58] LABS: HIV Combo NEGATIVE (Negative)
[2024-10-04 00:06] LABS: Hepatitis C Ab Qual. W/ RFX NEGATIVE (Negative)
[2024-10-04 00:15] LABS: Reflex Lactic Add Lactic Reflex
== END 2024-10-03 22:51 | disposition home or self-care (01) ==
PROVIDERS: Emergency Provider Emergency Medicine; PCP Nurse Practitioner Family
DX: E87.70 Fluid overload, unspecified (principal); E87.6 Hypokalemia; J10.1 Influenza due to other identified influenza virus with other respiratory manifestations; R06.02 Shortness of breath; R05.9 Cough, unspecified; R06.2 Wheezing; I48.20 Chronic atrial fibrillation, unspecified; E66.01 Morbid (severe) obesity due to excess calories; J44.9 Chronic obstructive pulmonary disease, unspecified; E11.9 Type 2 diabetes mellitus without complications; Z79.01 Long term (current) use of anticoagulants; Z91.199 Patient's noncompliance with other medical treatment and regimen due to unspecified reason; Z98.84 Bariatric surgery status; Z86.79 Personal history of other diseases of the circulatory system; Z68.44 Body mass index [BMI] 60.0-69.9, adult; Z87.891 Personal history of nicotine dependence; Z20.828 Contact with and (suspected) exposure to other viral communicable diseases
CPT/HCPCS: 71046; 80053; 82803; 83880; 84484; 85025; 86803; 87389; 87636; 93005; 96365; 99291; J3475; J7620

== ENCOUNTER 2024-11-03 11:11 | Outpatient (CLI) | payer MEDICARE, BC, SELFPAY ==
[2024-11-03 12:15] LABS: Chloride 99 mmol/L (98-107); Sodium 138 mmol/L (136-145)
[2024-11-03 12:16] LABS: Potassium 3.9 mmoL/L (3.5-5.1)
[2024-11-03 12:18] LABS: Blood Urea Nitrogen 13 mg/dl (9-20); Estimated Glomerular Filt Rate 121 ml/min (>60); GFR (African American) 146 ML/MIN (>60)
[2024-11-03 12:19] LABS: Anion Gap 10.9 mEq/L (5-15); Carbon Dioxide 32 mmol/L (22.0-30.0); Glucose 229 mg/dl (74-100); Magnesium 1.6 mg/dl (1.6-2.3)
== END 2024-11-03 23:59 | disposition home or self-care (01) ==
LOC: LAB 11:12
PROVIDERS: PCP Nurse Practitioner Family; Visit Provider Internal Medicine
DX: R60.0 Localized edema (principal); E78.2 Mixed hyperlipidemia; I95.9 Hypotension, unspecified; I11.0 Hypertensive heart disease with heart failure; I50.9 Heart failure, unspecified
CPT/HCPCS: 36415; 80048; 83735

== ENCOUNTER 2024-11-30 16:04 | Outpatient (CLI) | payer MEDICARE, BC, SELFPAY | END 2024-11-30 23:59 | disposition home or self-care (01) | LOC: LAB.DROPOF 23:10 | PROVIDERS: PCP Nurse Practitioner; Visit Provider Nurse Practitioner | DX: E11.621 Type 2 diabetes mellitus with foot ulcer (principal); L97.529 Non-pressure chronic ulcer of other part of left foot with unspecified severity; R23.4 Changes in skin texture; Z79.84 Long term (current) use of oral hypoglycemic drugs | CPT/HCPCS: 87070; 87077; 87186; 87205 ==

== ENCOUNTER 2024-12-07 14:41 | Inpatient (IN) | payer MEDICARE, BC, SELFPAY ==
[2024-12-07] VITALS (15 sets, daily range): BP systolic 103–167; BP diastolic 59–102; PULSE 86–118; RESP 18–22; TEMP 36.9–38.4; O2SAT 91–99; BMI 77.3
--- NOTE | 2024-12-07 17:07 | PC.NURSE ---
patient recieved 158ml of vanc, called out for redness warmth sweating so i stopped it. provider notifed. told to stop infusion. left infsuin stopped for over 30 mins patient still red and sweating told to discontinue the vanc.
--- NOTE | 2024-12-07 17:14 | PC.NURSE ---
Calling [facility] for transfer to rule out groin Cellulitis, Necrotizing soft tissue, and abscess. [facility] stated that they will give us a call back when the provider is ready.
--- NOTE | 2024-12-07 17:14 | PC.NURSE ---
MD transfer center states it could be 2 hours before phone call is returned due to high callback list at this time.
--- NOTE | 2024-12-07 17:57 | PC.NURSE ---
BLAS Peña is currently speaking to .
--- NOTE | 2024-12-07 18:15 | HMH.EDGENADL ---
Discharge Plan Disposition Patient Disposition: Admitted Condition: Fair Clinical Impressions Clinical Impression: Sepsis without septic shock, Cellulitis of leg, right Discharge ED Provider: Odalys Pérez General Adult HPI <BLAS Cleaning - Last Filed: 12/07/24 22:38> General Chief complaint: Skin/Abscess/Foreign Body Stated complaint: Bump on right thigh Time Seen by Provider: 12/07/24 14:45 History of Present Illness HPI narrative: Patient presents for evaluation of an right lower extremity infection. Patient reports that he has been having increasing pain and swelling to his medial proximal right thigh that began 3 days ago. He reports feeling feverish but no chest pain shortness of breath hemoptysis hematochezia melena nausea vomiting diarrhea. He is a insulin-dependent type 2 diabetic and also has severe morbid obesity with a BMI of 77. Related Data Home Medications ?Medication ?Instructions ?Recorded ?Confirmed insulin syringe-needle U-100 1 mL #10 ea 02/18/24 11/02/24 30 gauge x 1/2 (BD Insulin Syringe Ultra-Fine) metformin 1,000 mg tablet 1,000 mg PO BID 02/18/24 11/02/24 metoclopramide HCl 10 mg tablet 10 mg PO QID 02/18/24 11/02/24 rivaroxaban 20 mg tablet (Xarelto) 20 mg PO QPMWITHMEAL 02/18/24 11/02/24 Previous Rx's ?Medication ?Instructions ?Recorded pen needle, diabetic 32 gauge x #100 ea 09/16/2332 (Comfort EZ Pen [place]) ammonium lactate 12 % topical cream 1 applic topical BID dry skin, 04/19/24 callus care #385 grams diltiazem HCl 120 mg 120 mg PO DAILY #90 caps 06/23/24 capsule,extended release 24 hr cariprazine 3 mg capsule (Vraylar) 3 mg PO DAILY #90 caps 08/09/24 atorvastatin 40 mg tablet 40 mg PO HS #90 tabs 08/22/24 venlafaxine 150 mg See Rx Instructions .Route 09/18/24 capsule,extended release 24 hr .COMPLEX #90 caps spironolactone 50 mg tablet See Rx Instructions .Route 09/26/24 .COMPLEX #90 tabs albuterol sulfate 90 mcg/actuation 2 puff inhalation Q4-6H PRN 09/27/24 aerosol inhaler shortness of breath or wheezing #8.5 grams gabapentin 600 mg tablet 600 mg PO TID #90 tabs 09/27/24 lorazepam 1 mg tablet 1 mg PO DAILYP PRN anxiety #15 tabs 09/27/24 sulfamethoxazole 800 1 tab PO BID 10 days #20 tabs 10/18/24 mg-trimethoprim 160 mg tablet bisoprolol fumarate 5 mg tablet See Rx Instructions .Route 10/20/24 .COMPLEX #60 tabs omeprazole 40 mg capsule,delayed 40 mg PO BID #90 caps 10/24/24 release torsemide 20 mg tablet 40 mg (2 x 20 mg) PO DIRECTED 11/02/24 PRN edema #180 tabs trazodone 100 mg tablet See Rx Instructions .Route 11/16/24 .COMPLEX #90 tabs hydrocodone 10 mg-acetaminophen 1 tab PO TIDP PRN pain #90 tabs 11/23/24 325 mg tablet mupirocin 2 % topical ointment 1 applic topical BID infection 14 11/30/24 days #22 grams sulfamethoxazole 800 1 tab PO BID infection 14 days #28 11/30/24 mg-trimethoprim 160 mg tablet tabs (Bactrim DS) Allergies Allergy/AdvReac Type Severity Reaction Status Date / Time clindamycin Allergy Mild Nausea Verified 11/30/24 15:04 doxycycline AdvReac Mild Upset Verified 11/30/24 15:04 stomach, heartbur [facility] <BLAS Cleaning - Last Filed: 12/07/24 22:38> [facility] Disclaimer: The information contained in this section may have been updated after the patient was seen, as this information can be updated by other users. 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 Tachycardia Bilateral knee pain DDD (degenerative disc disease), lumbar Depression Morbid obesity with body mass index of 70 and over in adult CHF (congestive heart failure) COPD (chronic obstructive pulmonary disease) Diabetes Dyspnea BMI 60.0-69.9, adult Obesity Anxiety disorder Hypertension Diabetes type 2, uncontrolled Surgical History S/P gastric sleeve procedure History of gastric bypass Family History Other No significant family history Social History Smoking Status: Never smoker alcohol intake: former year quit: 2021 counseling given: Yes counseling provided: provider counseling substance use type: denies use current occupational status: unemployed and disabled Travel in the last 8 weeks?: None household members: spouse and children housing: house marital status: number of children: 1 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 current occupational exposures/hazards: No pets and animals: Yes pets and animals: cat(s) diet: other caffeine: Yes physical activity: none Have you lived/traveled outside US in past 30 days?: No Contact w/someone who lives/traveled outside US past 30 days?: No Exposure to someone with infectious disease in past 14 days?: No Do you have a fever (greater than 100.4 F or 38 C)?: No Have you tested positive for COVID-19?: No Exposed to someone with COVID-19 in past 14 days?: No Do you have a sore throat?: No Do you have a cough?: No Do you have any weakness?: No Do you have any diarrhea?: No Are you experiencing any unusual bleeding?: No Do you have any muscle aches/pain?: No Do you have any abdominal pain?: No Are you experiencing loss of taste or smell?: No Other Medical History Have you received the Flu Vaccine for this season: No Have you received the Pneumonia Vaccine: No <BLAS Cleaning - Last Filed: 12/07/24 22:38> ROS Obtained: Yes Systems reviewed as appropriate & no additional complaints except as documented Physical Exam <BLAS Cleaning - Last Filed: 12/07/24 22:38> General General appearance: alert Respiratory Respiratory exam: Present normal lung sounds bilaterally Cardiovascular Cardiovascular exam: Present tachycardia Neurological Exam Neurological exam: Present alert and oriented X3 Medical Decision Making <BLAS Cleaning - Last Filed: 12/07/24 22:38> Medical Records Medical records reviewed: Yes I reviewed the patient's medical records. Screening: Per USPSTF and CDC recommendations, given the prevalence of disease in our region, it is our hospital?s policy to screen for HIV and viral Hepatitis for all patients aged 18 and over and those with ongoing risk factors. Sy Inquiry Pt receiving controlled substance: No Vital Signs: 12/07/24 15:00 12/07/24 15:30 12/07/24 16:00 Temperature Temperature Source Pulse Rate 117 H 111 H 116 H Pulse Rate [Right Radial] Respiratory Rate 19 18 18 Blood Pressure 130/91 H 119/77 115/99 H Blood Pressure [Right Arm] Blood Pressure Mean Blood Pressure Mean [Right Arm] Blood Pressure Source [Right Arm] Blood Pressure Position [Right Arm] 02 Sat by Pulse Oximetry 92 L 93 L 93 L Oxygen Delivery Method Room Air Room Air Room Air Ambu-Bag 12/07/24 17:00 12/07/24 17:30 12/07/24 18:00 Temperature Temperature Source Pulse Rate 86 117 H 114 H Pulse Rate [Right Radial] Respiratory Rate 20 22 20 Blood Pressure 137/87 126/95 H 121/81 Blood Pressure [Right Arm] Blood Pressure Mean Blood Pressure Mean [Right Arm] Blood Pressure Source [Right Arm] Blood Pressure Position [Right Arm] 02 Sat by Pulse Oximetry 92 L 94 L 94 L Oxygen Delivery Method Room Air Room Air Room Air 12/07/24 18:32 12/07/24 19:00 12/07/24 19:19 Temperature 101.2 F H Temperature Source Oral Pulse Rate 102 H 99 H Pulse Rate [Right Radial] 95 H Respiratory Rate 19 Blood Pressure 153/93 H 167/89 H Blood Pressure [Right Arm] 150/70 H Blood Pressure Mean Blood Pressure Mean [Right Arm] 96 Blood Pressure Source [Right Arm] Automatic Cuff Blood Pressure Position [Right Arm] Sitting 02 Sat by Pulse Oximetry 91 L 96 97 Oxygen Delivery Method Room Air Room Air Room Air 12/07/24 19:31 12/07/24 20:01 12/07/24 20:30 Temperature Temperature Source Pulse Rate 88 101 H 103 H Pulse Rate [Right Radial] Respiratory Rate Blood Pressure 128/91 H 157/92 H 166/102 H Blood Pressure [Right Arm] Blood Pressure Mean 103 110 120 Blood Pressure Mean [Right Arm] Blood Pressure Source [Right Arm] Blood Pressure Position [Right Arm] 02 Sat by Pulse Oximetry 96 96 97 Oxygen Delivery Method 12/07/24 21:01 Temperature Temperature Source Pulse Rate 117 H Pulse Rate [Right Radial] Respiratory Rate Blood Pressure 103/87 L Blood Pressure [Right Arm] Blood Pressure Mean 92 Blood Pressure Mean [Right Arm] Blood Pressure Source [Right Arm] Blood Pressure Position [Right Arm] 02 Sat by Pulse Oximetry 98 Oxygen Delivery Method Lab Data Lab results reviewed: Yes I reviewed the patient's lab results. Lab Results 12/07/24 15:29: WBC 10.9 H, RBC 4.99, Hgb 12.9 L, Hct 40.7 L, MCV 81.6, MCH 25.9 L, MCHC 31.7 L, RDW 16.5, Plt Count 178, MPV 9.6, Neut % (Auto) 86.7 H, Lymph % (Auto) 5.3 L, [place] % (Auto) 6.9, Eos % (Auto) 0.1, Baso % (Auto) 0.3, Neut # (Auto) 9.5 H, Lymph # (Auto) 0.6 L, [place] # (Auto) 0.8, Eos # (Auto) 0.0, Baso # (Auto) 0.0, Total Counted 100, Neutrophils % (Manual) 87 H, Lymphocytes % (Manual) 7 L, Monocytes % (Manual) 6, Platelet Estimate Normal, RBC Morphology Normal, ESR 35 H, PT 14.9 H, INR 1.37 H, APTT 35.9 H, Sodium 131 L, Potassium 3.8, Chloride 93 L, Carbon Dioxide 27, Anion Gap 14.8, BUN 10, Creatinine 0.80, Estimated Creat Clear 125, Estimated GFR 104, Est GFR ( Amer) 125, Glucose 248 H, Lactate 3.3 H, Calcium 9.1, Total Bilirubin 2.0 H, AST 22, ALT 21, Alkaline Phosphatase 74, C-Reactive Protein 262.4 H, Total Protein 7.9, Albumin 4.2, Globulin 3.7 H, Albumin/Globulin Ratio 1.1, Procalcitonin 0.427 12/07/24 15:29 12/07/24 15:29 Orders (Tests/Meds): ED MEDICATIONS Generic Name Dose Route Start Last Admin Trade Name Freq PRN Reason Stop Dose Admin Furosemide 80 mg 12/07/24 22:34 Furosemide 20 Mg/2 Ml Vial IV 12/07/24 22:35 ONCE ONE Discontinued Medications Generic Name Dose Route Start Last Admin Trade Name Freq PRN Reason Stop Dose Admin Acetaminophen 1,000 mg 12/07/24 18:15 12/07/24 22:42 Acetaminophen 500mg Tab PO 12/07/24 18:16 1,000 mg ONCE ONE Administration Sodium Chloride 1,000 mls @ 999 mls/hr 12/07/24 18:15 12/07/24 22:42 Sod Chlor 0.9% 1000ml Bag IV 12/07/24 19:15 999 mls/hr .Q1H1M ONE Administration Piperacillin Sod/Tazobactam 50 mls @ 100 mls/hr 12/07/24 15:00 12/07/24 22:42 Sod 3.375 gm/ Sodium Chloride IV 12/07/24 15:29 100 mls/hr ONCE ONE Administration Clindamycin Phosphate 900 mg in 50 mls @ 100 mls/hr 12/07/24 15:00 12/07/24 22:41 Clindamycin 900mg/50ml D5w Premix IV 12/07/24 15:29 100 mls/hr ONCE ONE Administration Oxycodone HCl 5 mg 12/07/24 18:15 12/07/24 22:42 Oxycodone 5mg Immediate Release Tablet PO 12/07/24 18:16 5 mg ONCE ONE Administration ORDERS Category Date Time Status POCUS Point of Care (ER Only) Stat Exams 12/07/24 21:46 Ordered C-Reactive Protein Routine Lab 12/07/24 15:29 Completed Complete Blood Count Auto Diff Routine Lab 12/07/24 15:29 Completed Comprehensive Metabolic Panel Routine Lab 12/07/24 15:29 Completed Erythrocyte Sedimentation Rate Routine Lab 12/07/24 15:29 Completed Lactic Acid Routine Lab 12/07/24 15:29 Completed PT/PTT Routine Lab 12/07/24 15:29 Completed Procalcitonin Routine Lab 12/07/24 15:29 Completed Prothrombin Time INR Routine Lab 12/07/24 15:29 Completed Blood Culture Routine Micro 12/07/24 15:29 Received Blood Culture Routine Micro 12/07/24 15:29 Received Tissue Perfus/Sepsis Re-Eval Sepsis Re-Evaluation Performed: Yes Date Performed: 12/07/24 Time Performed: 20:00 Medical Decision Narrative: In summary patient is a 49-year-old male who presents to the emergency department for evaluation of right lower extremity cellulitis. Patient is initially normotensive with a blood pressure 130/91 with a heart rate of 117 with sinus tachycardia on the bedside monitor breathing 19 times a minute satting at 92% on room air upon arrival, febrile at 101.2.. Physical exam is notable for a well-nourished well-developed severely morbidly obese, with a BMI of 77, 49-year-old male who otherwise in no acute distress. In his right lower extremity he has a very large area of erythema induration and pain that extends from the inguinal crease to the superior anterior iliac spine down to the groin. Patient's body habitus precludes complete visualization of the perineum however I am able to visualize the scrotum which appears to be soft. It does not appear to cross the inguinal crease. I do not feel any fluctuance but the area is significantly large and encompasses almost the hemispheric medial proximal thigh. Patient is neurovascular intact distally however.. Differential diagnosis includes cellulitis versus abscess versus necrotizing soft tissue infection. Initial workup will be conducted with hematologic labs blood culture and I considered CT imaging however patient's weight and girth exceed our CAT scan capability and body habitus precludes diagnostic POCUS. Initial interventions include sepsis bolus empiric antibiotics of vancomycin Zosyn and clindamycin continuous cardiac monitoring and pulse oximetry. Initial workup reviewed by me shows his white count is 10.9 hemoglobin hematocrit 12.9 and 40.7 absolute neutrophil count is 9.5 sed rate is 35 INR is 1.37 sodium 131 chloride 93 glucose 248 lactate 3.3 total bilirubin is 2 CRP is 262.4 procalcitonin 0.427 and his LINREC score was 8. Upon repeat evaluation patient had a reaction to the vancomycin with flushing and redness. Vancomycin was stopped with resolution of his symptoms. He was able to receive the clindamycin and Zosyn.. Given this I had over several hours multiple conversations with multiple facilities including the [facility] the [facility] the [facility] and [facility] regarding patient presentation PRETTY and management. The trauma service at the [facility] stated that he was too heavy further CAT scan her and the resident on-call advised me to have our surgeon evaluate for clinical indications to take the patient to the operating room as they were on divert. I then had a discussion with Dr. Albright of general surgery here and even if the patient had a high index of suspicion for necrotizing soft tissue infection he could not operate on him as the patient's weight exceeds our operating room capacity and capabilities here. The [facility] in the [facility] both declined excepting the patient in transfer due to their inability to image the patient due to their CAT scan table weight limitations and the patient's abdominal girth. The [place] applicable was on divert and could not wait list the patient. I had an informal discussion with [facility] their way capacity also as well as their abdominal opening was exceeded by the patient's body habitus. I then contacted [facility] and spoke with Dr. Sanchez with hospital medicine. They actually measure their opening and again patient's body habitus precludes CT scanning thus they also declined. Dr. Pérez had an interactive discussion with our TRACK ANNOUNCER and plan is to admit the patient here for ongoing IV antibiotics with attempt to obtain imaging and/or transfer tomorrow. I did have a shared decision-making discussion with the patient regarding these difficulties and patient was understanding and agreeable to admission here knowing that should he potentially decompensate we would likely have to seek transfer in an emergent fashion. Patient verbalized understanding agreement. Given that I had indirect discussion with hospital medicine and patient will be admitted for further evaluation and care. I did attempt to add linezolid however I am unable to order that from the emergency department which will have to be done on the floor. Places where you can increase complexity: I informally interpreted the patient's chest x-ray or CT read and is remarkable for... Documenting what the potline monitor shows with rate and rhythm Consideration of test but deferring. Ex: I considered chest x-ray on this patient however given that they have no oxygen requirement and are clear to auscultation all lung kirkpatrick will be deferred. Social determinants of health: Given that patient is undomiciled increases complexity. Given that patient has polysubstance abuse compounds all aspects of care <Odalys Pérez, DO - Last Filed: 12/07/24 22:53> Vital Signs: 12/07/24 15:00 12/07/24 15:30 12/07/24 16:00 Temperature Temperature Source Pulse Rate 117 H 111 H 116 H Pulse Rate [Right Radial] Respiratory Rate 19 18 18 Blood Pressure 130/91 H 119/77 115/99 H Blood Pressure [Right Arm] Blood Pressure Mean Blood Pressure Mean [Right Arm] Blood Pressure Source [Right Arm] Blood Pressure Position [Right Arm] 02 Sat by Pulse Oximetry 92 L 93 L 93 L Oxygen Delivery Method Room Air Room Air Room Air Ambu-Bag 12/07/24 17:00 12/07/24 17:30 12/07/24 18:00 Temperature Temperature Source Pulse Rate 86 117 H 114 H Pulse Rate [Right Radial] Respiratory Rate 20 22 20 Blood Pressure 137/87 126/95 H 121/81 Blood Pressure [Right Arm] Blood Pressure Mean Blood Pressure Mean [Right Arm] Blood Pressure Source [Right Arm] Blood Pressure Position [Right Arm] 02 Sat by Pulse Oximetry 92 L 94 L 94 L Oxygen Delivery Method Room Air Room Air Room Air 12/07/24 18:32 12/07/24 19:00 12/07/24 19:19 Temperature 101.2 F H Temperature Source Oral Pulse Rate 102 H 99 H Pulse Rate [Right Radial] 95 H Respiratory Rate 19 Blood Pressure 153/93 H 167/89 H Blood Pressure [Right Arm] 150/70 H Blood Pressure Mean Blood Pressure Mean [Right Arm] 96 Blood Pressure Source [Right Arm] Automatic Cuff Blood Pressure Position [Right Arm] Sitting 02 Sat by Pulse Oximetry 91 L 96 97 Oxygen Delivery Method Room Air Room Air Room Air 12/07/24 19:31 12/07/24 20:01 12/07/24 20:30 Temperature Temperature Source Pulse Rate 88 101 H 103 H Pulse Rate [Right Radial] Respiratory Rate Blood Pressure 128/91 H 157/92 H 166/102 H Blood Pressure [Right Arm] Blood Pressure Mean 103 110 120 Blood Pressure Mean [Right Arm] Blood Pressure Source [Right Arm] Blood Pressure Position [Right Arm] 02 Sat by Pulse Oximetry 96 96 97 Oxygen Delivery Method 12/07/24 21:01 Temperature Temperature Source Pulse Rate 117 H Pulse Rate [Right Radial] Respiratory Rate Blood Pressure 103/87 L Blood Pressure [Right Arm] Blood Pressure Mean 92 Blood Pressure Mean [Right Arm] Blood Pressure Source [Right Arm] Blood Pressure Position [Right Arm] 02 Sat by Pulse Oximetry 98 Oxygen Delivery Method Lab Data Lab Results 12/07/24 15:29: WBC 10.9 H, RBC 4.99, Hgb 12.9 L, Hct 40.7 L, MCV 81.6, MCH 25.9 L, MCHC 31.7 L, RDW 16.5, Plt Count 178, MPV 9.6, Neut % (Auto) 86.7 H, Lymph % (Auto) 5.3 L, [place] % (Auto) 6.9, Eos % (Auto) 0.1, Baso % (Auto) 0.3, Neut # (Auto) 9.5 H, Lymph # (Auto) 0.6 L, [place] # (Auto) 0.8, Eos # (Auto) 0.0, Baso # (Auto) 0.0, Total Counted 100, Neutrophils % (Manual) 87 H, Lymphocytes % (Manual) 7 L, Monocytes % (Manual) 6, Platelet Estimate Normal, RBC Morphology Normal, ESR 35 H, PT 14.9 H, INR 1.37 H, APTT 35.9 H, Sodium 131 L, Potassium 3.8, Chloride 93 L, Carbon Dioxide 27, Anion Gap 14.8, BUN 10, Creatinine 0.80, Estimated Creat Clear 125, Estimated GFR 104, Est GFR ( Amer) 125, Glucose 248 H, Lactate 3.3 H, Calcium 9.1, Total Bilirubin 2.0 H, AST 22, ALT 21, Alkaline Phosphatase 74, C-Reactive Protein 262.4 H, Total Protein 7.9, Albumin 4.2, Globulin 3.7 H, Albumin/Globulin Ratio 1.1, Procalcitonin 0.427 Orders (Tests/Meds): ED MEDICATIONS Generic Name Dose Route Start Last Admin Trade Name Freq PRN Reason Stop Dose Admin Furosemide 80 mg 12/07/24 22:34 Furosemide 20 Mg/2 Ml Vial IV 12/07/24 22:35 ONCE ONE Discontinued Medications Generic Name Dose Route Start Last Admin Trade Name Freq PRN Reason Stop Dose Admin Acetaminophen 1,000 mg 12/07/24 18:15 12/07/24 22:42 Acetaminophen 500mg Tab PO 12/07/24 18:16 1,000 mg ONCE ONE Administration Sodium Chloride 1,000 mls @ 999 mls/hr 12/07/24 18:15 12/07/24 22:42 Sod Chlor 0.9% 1000ml Bag IV 12/07/24 19:15 999 mls/hr .Q1H1M ONE Administration Piperacillin Sod/Tazobactam 50 mls @ 100 mls/hr 12/07/24 15:00 12/07/24 22:42 Sod 3.375 gm/ Sodium Chloride IV 12/07/24 15:29 100 mls/hr ONCE ONE Administration Clindamycin Phosphate 900 mg in 50 mls @ 100 mls/hr 12/07/24 15:00 12/07/24 22:41 Clindamycin 900mg/50ml D5w Premix IV 12/07/24 15:29 100 mls/hr ONCE ONE Administration Oxycodone HCl 5 mg 12/07/24 18:15 12/07/24 22:42 Oxycodone 5mg Immediate Release Tablet PO 12/07/24 18:16 5 mg ONCE ONE Administration ORDERS Category Date Time Status POCUS Point of Care (ER Only) Stat Exams 12/07/24 21:46 Ordered C-Reactive Protein Routine Lab 12/07/24 15:29 Completed Complete Blood Count Auto Diff Routine Lab 12/07/24 15:29 Completed Comprehensive Metabolic Panel Routine Lab 12/07/24 15:29 Completed Erythrocyte Sedimentation Rate Routine Lab 12/07/24 15:29 Completed Lactic Acid Routine Lab 12/07/24 15:29 Completed PT/PTT Routine Lab 12/07/24 15:29 Completed Procalcitonin Routine Lab 12/07/24 15:29 Completed Prothrombin Time INR Routine Lab 12/07/24 15:29 Completed Blood Culture Routine Micro 12/07/24 15:29 Received Blood Culture Routine Micro 12/07/24 15:29 Received Medical Decision Narrative: In summary patient is a 49-year-old male who presents to the emergency department for evaluation of right lower extremity cellulitis. Patient is initially normotensive with a blood pressure 130/91 with a heart rate of 117 with sinus tachycardia on the bedside monitor breathing 19 times a minute satting at 92% on room air upon arrival, febrile at 101.2.. Physical exam is notable for a well-nourished well-developed severely morbidly obese, with a BMI of 77, 49-year-old male who otherwise in no acute distress. In his right lower extremity he has a very large area of erythema induration and pain that extends from the inguinal crease to the superior anterior iliac spine down to the groin. Patient's body habitus precludes complete visualization of the perineum however I am able to visualize the scrotum which appears to be soft. It does not appear to cross the inguinal crease. I do not feel any fluctuance but the area is significantly large and encompasses almost the hemispheric medial proximal thigh. Patient is neurovascular intact distally however.. Differential diagnosis includes cellulitis versus abscess versus necrotizing soft tissue infection. Initial workup will be conducted with hematologic labs blood culture and I considered CT imaging however patient's weight and girth exceed our CAT scan capability and body habitus precludes diagnostic POCUS. Initial interventions include sepsis bolus empiric antibiotics of vancomycin Zosyn and clindamycin continuous cardiac monitoring and pulse oximetry. Initial workup reviewed by me shows his white count is 10.9 hemoglobin hematocrit 12.9 and 40.7 absolute neutrophil count is 9.5 sed rate is 35 INR is 1.37 sodium 131 chloride 93 glucose 248 lactate 3.3 total bilirubin is 2 CRP is 262.4 procalcitonin 0.427 and his LINREC score was 8. Upon repeat evaluation patient had a reaction to the vancomycin with flushing and redness. Vancomycin was stopped with resolution of his symptoms. He was able to receive the clindamycin and Zosyn.. Given this I had over several hours multiple conversations with multiple facilities including the [facility] the [facility] the [facility] and [facility] regarding patient presentation PRETTY and management. The trauma service at the [facility] stated that he was too heavy further CAT scan her and the resident on-call advised me to have our surgeon evaluate for clinical indications to take the patient to the operating room as they were on divert. I then had a discussion with Dr. Albright of general surgery here and even if the patient had a high index of suspicion for necrotizing soft tissue infection he could not operate on him as the patient's weight exceeds our operating room capacity and capabilities here. [facility] in the [facility] both declined excepting the patient in transfer due to their inability to image the patient due to their CAT scan table weight limitations and the patient's abdominal girth. The [place] applicable was on divert and could not wait list the patient. I had an informal discussion with [facility] their way capacity also as well as their abdominal opening was exceeded by the patient's body habitus. I then contacted [facility] and spoke with Dr. Sanchez with hospital medicine. They actually measure their opening and again patient's body habitus precludes CT scanning thus they also declined. Dr. Pérez had an interactive discussion with our TRACK ANNOUNCER and plan is to admit the patient here for ongoing IV antibiotics with attempt to obtain imaging and/or transfer tomorrow. I did have a shared decision-making discussion with the patient regarding these difficulties and patient was understanding and agreeable to admission here knowing that should he potentially decompensate we would likely have to seek transfer in an emergent fashion. Patient verbalized understanding agreement. Given that I had indirect discussion with hospital medicine and patient will be admitted for further evaluation and care. I did attempt to add linezolid however I am unable to order that from the emergency department which will have to be done on the floor. Places where you can increase complexity: I informally interpreted the patient's chest x-ray or CT read and is remarkable for... Documenting what the potline monitor shows with rate and rhythm Consideration of test but deferring. Ex: I considered chest x-ray on this patient however given that they have no oxygen requirement and are clear to auscultation all lung kirkpatrick will be deferred. Social determinants of health: Given that patient is undomiciled increases complexity. Given that patient has polysubstance abuse compounds all aspects of care DO Beto: I was consulted by the POOJA, and we discussed the complexity of the problems being addressed. I approved the treatment and management plan for this patient's care in the emergency department, thus performing a substantive portion of the medical decision making. Patient was critically ill with sepsis in the setting of groin cellulitis, and we unfortunately have been unable to find any hospital that would accept him for transfer for surgical evaluation/possible CT scan, as they reported that he was too large for their CT scanner. We had an interactive discussion with her surgeon here who advised that he did not feel comfortable assessing the patient or operating on him here, but last we tried [facility], [facility], [facility], and [place], and no other would except the patient for transfer. Given this, Dr. Jaime did bedside [id number] ultrasound in the emergency department and did not see any obvious gas within the limitations of the study, which were limited because of his body habitus. I had an interactive discussion with the TRACK ANNOUNCER of our hospital Dr. Membreno who advised that we would admit the patient here and figure out ultimate disposition tomorrow. We will keep him on IV antibiotics in the meantime. Odalys Pérez DO Critical Care <[employer] - Last Filed: 12/07/24 22:38> Critical Care Time Critical Care Time: Yes Attestation: On 12/07/24, the high probability of a clinically significant, sudden or life threatening deterioration of the following system(s) required my full and direct attention, intervention and personal management. The time I documented below is in addition to time spent performing reported procedures but includes the following listed in this critical care notation. Total Time Total Critical Care Time: 70
--- NOTE | 2024-12-07 18:42 | PC.NURSE ---
calling at this time.
--- NOTE | 2024-12-07 18:49 | PC.NURSE ---
before giving clindamycin i asked pateint to verify allergies he reported no known allergies.
[2024-12-07 19:16] LABS: Activated Partial Thrombo Time 35.9 seconds (22.8-30.6); INR 1.37 (0.9-1.1); Prothrombin Time 14.9 seconds (10.1-12.5)
[2024-12-07 19:19] LABS: Basophils % 0.3 % (0.1-2.0); Eosinophils % 0.1 % (0.1-12.0); Hematocrit 40.7 % (42.0-52.0); Hemoglobin 12.9 g/dL (14.1-18.0); Immature Granulocytes # 0.08 10^3uL; Immature Granulocytes % 0.7 %; Lymphocytes # 0.6 K/mm3 (0.7-4.5); Lymphocytes % 5.3 % (10-50); Mean Corpuscular HGB Conc 31.7 g/dL (31.8-35.4); Mean Corpuscular Hemoglobin 25.9 pg (27.0-31.2); Mean Corpuscular Volume 81.6 fl (80-94); Mean Platelet Volume 9.6 fl (7.4-10.4); Monocytes # 0.8 K/mm3 (0.1-1.0); Monocytes % 6.9 % (1.7-9.3); Neutrophils # 9.5 K/mm3 (1.8-7.8); Neutrophils % 86.7 % (37.0-80.0); Nucleated Red Blood Cells # 0 10^3/uL; Nucleated Red Blood Cells % 0 %; Platelet Count 178 K/mm3 (142-424); Red Blood Count 4.99 M/mm3 (4.60-6.20); Red Cell Distribution Width 16.5 % (11.5-17.5); Red Cell Distribution Width-SD 49.2 fL; White Blood Count 10.9 K/mm3 (4.8-10.8)
[2024-12-07 19:22] LABS: Erythrocyte Sedimentation Rate 35 mm/hr (0-15)
[2024-12-07 19:24] LABS: Lymphocytes % 7 % (10-50); MANUAL DIFFERENTIAL MANUAL DIFFERENTIAL (MANUAL DIFF); Neutrophils % 87 % (42-76); Total Cells Counted 100
[2024-12-07 19:25] LABS: Monocytes % 6 % (2-9); Platelet Estimate Normal; RBC Morphology Normal
[2024-12-07 19:50] LABS: Anion Gap 14.8 mEq/L (5-15); Carbon Dioxide 27 mmol/L (22.0-30.0); Chloride 93 mmol/L (98-107); Potassium 3.8 mmoL/L (3.5-5.1); Sodium 131 mmol/L (136-145)
[2024-12-07 19:51] LABS: Alanine Aminotransferase 21 U/L (12-78); Aspartate Amino Transferase 22 U/L (17-59); Blood Urea Nitrogen 10 mg/dl (9-20); Calcium 9.1 mg/dl (8.4-10.2); Creatinine Clearance Estimated 125 mL/min (50-200); Estimated Glomerular Filt Rate 104 ml/min (>60); GFR (African American) 125 ML/MIN (>60); Glucose 248 mg/dl (74-100); Total Protein,Serum 7.9 g/dl (6.3-8.2)
[2024-12-07 19:52] LABS: Albumin Level 4.2 g/dl (3.5-5.0); Albumin/Globulin Ratio 1.1 (1.1-1.8); Alkaline Phosphatase 74 U/L (38-126); Globulin 3.7 g/dL (1.3-3.2); Procalcitonin 0.427 ng/mL (0.0-2.0)
[2024-12-07 19:54] LABS: Lactic Acid 3.3 mmol/L (0.7-2.1)
--- NOTE | 2024-12-07 19:58 | PC.NURSE ---
Called [facility] to try to transfer this patient said they would call back
--- NOTE | 2024-12-07 20:05 | PC.NURSE ---
[facility] is unable to fit the patient into their CT scanner.
[2024-12-07 20:06] LABS: C-Reactive Protein 262.4 mg/L (0-4)
--- NOTE | 2024-12-07 22:28 | EXP.HP ---
History of Present Illness *Admission Date: 12/07/24 *Reason for visit:: Swelling *History of present illness: 49-year-old male presents to the emergency department after significant swelling pain and erythema of his right groin that has been progressive over the last 1 week. States that about Thursday 1 week ago he started noticing that he was rolled having some pain in his groin has progressed over the next few days to become significant swelling and extensive erythema extending from his abdomen groin and to his mid thigh. He also has a new open wound on his right lower extremity after nicking it on an object. he developed fevers, chills, malaise, body aches. ER has been trying to contact a facility to perform imaging due to concern for necrotizing fasciitis however it is limited due to his body habitus and inability to fit in a scanner or be admitted. Patient was started on clindamycin and Zosyn. Bedside ultrasound looking for subcutaneous gas performed by the emergency department reportedly demonstrated no free air. Other comorbid's include atrial fibrillation, sleep apnea (wears CPAP) Discussed placing Barber catheter due to urinary incontinence, patient agreed History was independently obtained. Diagnostic and laboratory evaluation independently interpreted. Prior records were reviewed. Case was discussed with ER physician. [facility] Disclaimer: The information contained in this section may have been updated after the patient was seen, as this information can be updated by other users. 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 Tachycardia Bilateral knee pain DDD (degenerative disc disease), lumbar Depression Morbid obesity with body mass index of 70 and over in adult CHF (congestive heart failure) COPD (chronic obstructive pulmonary disease) Diabetes Dyspnea BMI 60.0-69.9, adult Obesity Anxiety disorder Hypertension Diabetes type 2, uncontrolled Surgical History S/P gastric sleeve procedure History of gastric bypass Family History Other No significant family history Social History Smoking Status: Never smoker alcohol intake: former year quit: 2021 counseling given: Yes counseling provided: provider counseling substance use type: denies use current occupational status: unemployed and disabled Travel in the last 8 weeks?: None household members: spouse and children housing: house marital status: number of children: 1 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 current occupational exposures/hazards: No pets and animals: Yes pets and animals: cat(s) diet: other caffeine: Yes physical activity: none Have you lived/traveled outside US in past 30 days?: No Contact w/someone who lives/traveled outside US past 30 days?: No Exposure to someone with infectious disease in past 14 days?: No Do you have a fever (greater than 100.4 F or 38 C)?: No Have you tested positive for COVID-19?: No Exposed to someone with COVID-19 in past 14 days?: No Do you have a sore throat?: No Do you have a cough?: No Do you have any weakness?: No Do you have any diarrhea?: No Are you experiencing any unusual bleeding?: No Do you have any muscle aches/pain?: No Do you have any abdominal pain?: No Are you experiencing loss of taste or smell?: No Other Medical History Have you received the Flu Vaccine for this season: No Have you received the Pneumonia Vaccine: No Review of Systems Review of Systems Review of systems:: pertinent systems reviewed and negative unless documented below Constitutional Constitutional: Reports body ache(s) and Reports chills Eyes Eyes: Reports system reviewed and no additional complaints, except as documented ENT Ears, Nose, Mouth, and Throat: Reports system reviewed and no additional complaints, except as documented *Cardiovascular Cardiovascular: Reports system reviewed and no additional complaints, except as documented, Denies chest pain and Denies dyspnea *Respiratory Respiratory: Reports system reviewed and no additional complaints, except as documented and Denies dyspnea *Genitourinary Genitourinary: Reports system reviewed and no additional complaints, except as documented Comments: Pain *Neurologic Neurologic: Reports system reviewed and no additional complaints, except as documented Meds Home Medications and Allergies Home Medications ?Medication ?Instructions ?Recorded ?Confirmed ?Type pen needle, diabetic 32 gauge x #100 ea 09/16/23 11/02/24 Rx (Comfort EZ Pen [place]) insulin syringe-needle U-100 1 mL #10 ea 02/18/24 11/02/24 History 30 gauge x 1/2 (BD Insulin Syringe Ultra-Fine) metformin 1,000 mg tablet 1,000 mg PO BID 02/18/24 11/02/24 History metoclopramide HCl 10 mg tablet 10 mg PO QID 02/18/24 11/02/24 History rivaroxaban 20 mg tablet (Xarelto) 20 mg PO QPMWITHMEAL 02/18/24 11/02/24 History ammonium lactate 12 % topical cream 1 applic topical BID dry skin, 04/19/24 11/02/24 Rx callus care #385 grams diltiazem HCl 120 mg 120 mg PO DAILY #90 caps 06/23/24 11/02/24 Rx capsule,extended release 24 hr cariprazine 3 mg capsule (Vraylar) 3 mg PO DAILY #90 caps 08/09/24 11/02/24 Rx atorvastatin 40 mg tablet 40 mg PO HS #90 tabs 08/22/24 11/02/24 Rx venlafaxine 150 mg See Rx Instructions .Route 09/18/24 11/02/24 Rx capsule,extended release 24 hr .COMPLEX #90 caps spironolactone 50 mg tablet See Rx Instructions .Route 09/26/24 11/02/24 Rx .COMPLEX #90 tabs albuterol sulfate 90 mcg/actuation 2 puff inhalation Q4-6H PRN 09/27/24 11/02/24 Rx aerosol inhaler shortness of breath or wheezing #8.5 grams gabapentin 600 mg tablet 600 mg PO TID #90 tabs 09/27/24 11/02/24 Rx lorazepam 1 mg tablet 1 mg PO DAILYP PRN anxiety #15 tabs 09/27/24 11/02/24 Rx sulfamethoxazole 800 1 tab PO BID 10 days #20 tabs 10/18/24 11/02/24 Rx mg-trimethoprim 160 mg tablet bisoprolol fumarate 5 mg tablet See Rx Instructions .Route 10/20/24 11/02/24 Rx .COMPLEX #60 tabs omeprazole 40 mg capsule,delayed 40 mg PO BID #90 caps 10/24/24 11/02/24 Rx release torsemide 20 mg tablet 40 mg (2 x 20 mg) PO DIRECTED 11/02/24 11/02/24 Rx PRN edema #180 tabs trazodone 100 mg tablet See Rx Instructions .Route 11/16/24 Rx .COMPLEX #90 tabs hydrocodone 10 mg-acetaminophen 1 tab PO TIDP PRN pain #90 tabs 11/23/24 Rx 325 mg tablet mupirocin 2 % topical ointment 1 applic topical BID infection 14 11/30/24 11/30/24 Rx days #22 grams sulfamethoxazole 800 1 tab PO BID infection 14 days #28 11/30/24 11/30/24 Rx mg-trimethoprim 160 mg tablet tabs (Bactrim DS) New Prescriptions to Start Prescriptions: Allergies Allergy/AdvReac Type Severity Reaction Status Date / Time clindamycin Allergy Mild Nausea Verified 11/30/24 15:04 doxycycline AdvReac Mild Upset Verified 11/30/24 15:04 stomach, heartbur Exam Data for Last 24 hours Vital signs and Labs for Last 24 Hours: Temp Pulse Resp BP Pulse Ox O2 Del Method 101.2 F H 117 H 19 103/87 L 98 Room Air 12/07/24 19:19 12/07/24 21:01 12/07/24 19:19 12/07/24 21:01 12/07/24 21:01 12/07/24 19:19 Laboratory Results - last 24 hr 12/07/24 15:29: WBC 10.9 H, RBC 4.99, Hgb 12.9 L, Hct 40.7 L, MCV 81.6, MCH 25.9 L, MCHC 31.7 L, RDW 16.5, Plt Count 178, MPV 9.6, Neut % (Auto) 86.7 H, Lymph % (Auto) 5.3 L, Garden % (Auto) 6.9, Eos % (Auto) 0.1, Baso % (Auto) 0.3, Neut # (Auto) 9.5 H, Lymph # (Auto) 0.6 L, Garden # (Auto) 0.8, Eos # (Auto) 0.0, Baso # (Auto) 0.0, Total Counted 100, Neutrophils % (Manual) 87 H, Lymphocytes % (Manual) 7 L, Monocytes % (Manual) 6, Platelet Estimate Normal, RBC Morphology Normal, ESR 35 H, PT 14.9 H, INR 1.37 H, APTT 35.9 H, Sodium 131 L, Potassium 3.8, Chloride 93 L, Carbon Dioxide 27, Anion Gap 14.8, BUN 10, Creatinine 0.80, Estimated Creat Clear 125, Estimated GFR 104, Est GFR ( Amer) 125, Glucose 248 H, Lactate 3.3 H, Calcium 9.1, Total Bilirubin 2.0 H, AST 22, ALT 21, Alkaline Phosphatase 74, C-Reactive Protein 262.4 H, Total Protein 7.9, Albumin 4.2, Globulin 3.7 H, Albumin/Globulin Ratio 1.1, Procalcitonin 0.427 I & O for Last 24 hours: Intake & Output 12/04/24 12/05/24 12/06/24 12/07/24 23:59 23:59 23:59 23:59 Weight 258.548 kg Constitutional Constitutional: no acute distress, morbidly obese and cooperative *Routine HEENT Exam Head: Present normocephalic Eye: Present EOMI and PERRL ENT: Present mucous membranes moist *Routine Neck Exam Neck: Present supple; Absent lymphadenopathy *Routine Respiratory Exam Respiratory: Present CTA bilaterally *Routine Cardiovascular Exam Cardiovascular: Present Normal S1, Normal S2 and irregular rhythm; Absent murmur *Routine Abdominal Exam Abdominal: Present soft and normoactive bowel sounds; Absent tenderness *Routine Rectal Exam Rectal:: deferred *Routine Genitalia Exam Genitalia:: deferred Comment:: Severe swelling and erythema of penis and scrotum *Routine Extremities Exam Comments: Severe erythema swelling and tenderness from lower right quadrant extending through groin to the mid right thigh *Routine Skin Exam Skin: Present erythema and warm; Absent dry Comments: Open wound on right funk *Routine Neurological Exam Neurological: Present alert and oriented X3 Assessment and Plan *Assessment and plan (1) Cellulitis of leg, right: Status: Acute Category: Medical Code(s): L03.115 - Cellulitis of right lower limb (2) Boil of lower extremity: Status: Acute Category: Medical Code(s): L02.429 - Furuncle of limb, unspecified (3) Volume overload: Status: Acute Category: Medical Code(s): E87.70 - Fluid overload, unspecified (4) Chronic a-fib: Status: Acute Category: Medical Code(s): I48.20 - Chronic atrial fibrillation, unspecified (5) BMI 60.0-69.9, adult: Status: Chronic Category: Medical Code(s): Z68.44 - Body mass index [BMI] 60.0-69.9, adult (6) QUINN (obstructive sleep apnea): Problem Comment: Severe QUINN and nocturnal hypoxemia. He was unable to tolerate CPAP in the past and needed trial with BiPAP. He was offered an split-night with BiPAP titration but due to issues with transportation he requested a home sleep study. Status: Chronic Category: Medical Code(s): G47.33 - Obstructive sleep apnea (adult) (pediatric) Plan 49-year-old man admitted for severe cellulitis involving the right lower quadrant groin and right upper thigh. Patient is morbidly obese and unable to fit in any scanner or operating table in the facility. Surgical evaluation was declined due to inability to operate. Other facilities have been contacted to accept patient however they are also limited by the patient's weight. At this time we cannot exclude necrotizing fasciitis, there is concern for severe infection but again we are limited by facility capabilities. Will continue empiric antibiotic treatment for necrotizing fasciitis while urgently looking for a facility capable of evaluating and treating the patient further. Currently hemodynamically stable, and in significant pain, will manage supportively for the time being. All of this was discussed with the patient and he understands. Severe cellulitis of abdomen groin and lower extremity - red man syndrome with vancomycin - Clindamycin 900 mg IV every 8 - Linezolid 600 mg IV every 12 - Zosyn 4.5 g IV Q6 - Needs urgent imaging evaluation and surgical consultation at a capable facility. Urgently searching for accepting facility - Supportive management Urinary incontinence - Barber Hypervolemia - Lasix 80 IV x 1, assess response, likely will need additional doses Atrial fibrillation - Bisoprolol - Diltiazem - Xarelto Neuropathy - Gabapentin Diabetes - Unknown regimen - SSI
--- NOTE | 2024-12-07 22:29 | PC.NURSE ---
Report called to Allison DAVILA Pt transported to the inpatient unit via stretcher by RECREATION TEACHER
[2024-12-07] MEDS: CLINDAMYCIN PHOSPHATE/D5W 900 MG/50 ML PIGGYBACK 100 MG IV (22:41)
[2024-12-07] MEDS: 0.9 % SODIUM CHLORIDE 1000ML 1,000 ML 999 ML IV (22:42)
[2024-12-07] MEDS: OXYCODONE 5MG IMMEDIATE RELEASE TABLET 5 MG PO (22:42)
[2024-12-07] MEDS: PIPERCILLIN/TAZO 3.375 GM in 0.9 % SODIUM CHLORIDE 50 ML IV (22:42)
[2024-12-07] MEDS: ACETAMINOPHEN 500MG TAB 1000 MG PO (22:42)
[2024-12-07] MEDS: MORPHINE 4MG/ML SYRINGE 4 MG IV (23:12)
--- NOTE | 2024-12-07 23:30 | PC.NURSE ---
Patient arrived to floor via stretcher from ED at 23:22.
[2024-12-07 23:53] LABS: Reflex Lactic Add Lactic Reflex
[2024-12-08] VITALS (10 sets, daily range): BP systolic 104–134; BP diastolic 66–75; PULSE 91–108; RESP 16–19; TEMP 36.9–38.1; O2SAT 95–99; BMI 82.7; BMI 76.1
[2024-12-08 00:02] LABS: Lactic Acid Follow Up (RFLX 1) 4.4 mmol/L (0.7-2.1)
[2024-12-08] MEDS: FUROSEMIDE 20 MG/2 ML VIAL 80 MG IV (00:15)
[2024-12-08] MEDS: HYDROCODONE/APAP 5/325 MG TABLET 1 TAB PO ×2 (00:15→06:00)
[2024-12-08] MEDS: AEROCHAMBER/OPTIHALER 1 UNIT MC (00:19)
[2024-12-08 00:36] LABS: POC Glucose,Bedside 286 (70-110)
[2024-12-08] MEDS: ACETAMINOPHEN 325MG TAB 650 MG PO (01:05)
--- NOTE | 2024-12-08 01:19 | PC.NURSE ---
Lactic value of 4.4 was reported to Wayne Martinez MD at 01:13 by me; I was notified by Jeane Carmona RN at 01:10 that Lab had called her earlier about the result. No new orders were given.
[2024-12-08 01:57] LABS: Reflex Lactic (2 hrs) Add Lactic Reflex
--- NOTE | 2024-12-08 02:28 | PC.WOUNDNOTE ---
Pictured is the affected right upper thigh/groin area. This area is very swollen, raised, firm, and tender upon palpation. Skin temperature is hot to the touch and color is erythemic. Patient reports severe pain in this affected area. No open wounds or punctums were noted to the right upper thigh/groin area. Border undefined.
[2024-12-08 02:35] LABS: Lactic Acid Follow up (RFLX 2) 2.6 mmol/L (0.7-2.1)
--- NOTE | 2024-12-08 04:35 | PC.NURSE ---
Mr Gonzalo Russell was newly admitted this shift on behalf of the documented diagnosis cellulitis. Admission assessments and home medication reconciliation were completed by me. Patient is pleasantly alert and oriented x4. Right upper thigh/groin area was assessed (see nursing wound note for image); the area was [id number], very swollen, red, and reported as severely painful to the patient. [place] administered per MAR for pain control. Lasix was also given to initiate diuresis this shift. A Barber catheter was inserted by me, per MD order, using aseptic technique. Adequate urine output measured and documented accordingly. Patient has also been febrile (exhibited chills, diaphoresis) this shift; Tylenol was administered per MAR, and cooling techniques were implemented (cold rag compress, oscillating fan, decrease in room temperature) to combat fever. Patient remains afebrile at this time/thus far. Auscultation of his heart, lungs, and bowels were within normal findings. Patient is ambulatory (uses a cane to assist) at baseline. He has rested up to the recliner chair since arrival to the second floor. ACHS glucose checks performed (patient did refuse insulin for 23:45). CPAP nighttime use baseline, tolerates room air while awake. Patient was observed to be awake for the majority of this shift. Heart rate elevated. At this time, the patient is resting up to chair without any further complaints. No new needs at this time. Call light within reach. No acute changes noted in right upper thigh/groin area thus far.
[2024-12-08 05:53] LABS: POC Glucose,Bedside 281 (70-110)
[2024-12-08] MEDS: humaLOG 100 UNITS/ML 10ML VIAL (SSI) SUBCUT ×4 (06:00→21:08)
[2024-12-08 06:40] LABS: Basophils % 0.2 % (0.1-2.0); Hematocrit 37.5 % (42.0-52.0); Hemoglobin 11.7 g/dL (14.1-18.0); Immature Granulocytes # 0.07 10^3uL; Immature Granulocytes % 0.8 %; Lymphocytes # 0.5 K/mm3 (0.7-4.5); Lymphocytes % 5.7 % (10-50); Mean Corpuscular HGB Conc 31.2 g/dL (31.8-35.4); Mean Corpuscular Hemoglobin 25.3 pg (27.0-31.2); Mean Corpuscular Volume 81.2 fl (80-94); Mean Platelet Volume 10.1 fl (7.4-10.4); Monocytes # 0.6 K/mm3 (0.1-1.0); Monocytes % 6.4 % (1.7-9.3); Neutrophils # 7.9 K/mm3 (1.8-7.8); Neutrophils % 86.9 % (37.0-80.0); Nucleated Red Blood Cells # 0 10^3/uL; Nucleated Red Blood Cells % 0 %; Platelet Count 159 K/mm3 (142-424); Red Blood Count 4.62 M/mm3 (4.60-6.20); Red Cell Distribution Width 16.5 % (11.5-17.5); Red Cell Distribution Width-SD 48.8 fL; White Blood Count 9.1 K/mm3 (4.8-10.8)
[2024-12-08 06:46] LABS: MANUAL DIFFERENTIAL MANUAL DIFFERENTIAL (MANUAL DIFF)
[2024-12-08 06:52] LABS: Alanine Aminotransferase 18 U/L (12-78); Albumin Level 3.3 g/dl (3.5-5.0); Alkaline Phosphatase 93 U/L (38-126); Aspartate Amino Transferase 29 U/L (17-59); Bilirubin,Total 1.7 mg/dl (0.2-1.3); Blood Urea Nitrogen 14 mg/dl (9-20); Calcium 8.6 mg/dl (8.4-10.2); Carbon Dioxide 30 mmol/L (22.0-30.0); Chloride 94 mmol/L (98-107); Chol/HDL Ratio 3.9 (1-3.5); Cholesterol 70 mg/dl (140-200); Creatinine Clearance Estimated 111 mL/min (50-200); Estimated Glomerular Filt Rate 90 ml/min (>60); GFR (African American) 109 ML/MIN (>60); Globulin 3.3 g/dL (1.3-3.2); Glucose 320 mg/dl (74-100); HDL Cholesterol 18 mg/dl (40-60); Magnesium 1.4 mg/dl (1.6-2.3); Phosphorous 3.7 mg/dl (2.5-4.5); Sodium 132 mmol/L (136-145); Total Protein,Serum 6.6 g/dl (6.3-8.2); Triglycerides 92 mg/dl (30-150); VLDL Cholesterol 18 mg/dL (0-40)
[2024-12-08 07:07] LABS: Direct LDL Cholesterol < 30.00 mg/dL (100-129)
--- NOTE | 2024-12-08 08:11 | EXP.SURG.CON ---
History of Present Illness *Admission Date: 12/07/24 *Reason for visit:: Cellulitis versus abscess *History of present illness: Patient is a 49-year-old diabetic male with morbid obesity with BMI of 77, with history of chronic atrial fibrillation, obstructive sleep apnea, diabetes with numerous sequelae, lymphedema, congestive heart failure, hypertension, hyperlipidemia, degenerative disc disease, COPD. He is on Xarelto he presented to the emergency department in the afternoon/evening of 12/07/2024 with findings of soft tissue infection of the right groin and thigh area. He states that several days prior he had noticed some discomfort and described it as feeling raw . Over the next several days prior to presentation to the emergency department he had some increased swelling, redness, and heat extending from his groin and abdomen area onto the thigh. He then developed some significant fevers, chills, and myalgias. He underwent thorough ER evaluation. He was noted to be tachypneic, tachycardic, and febrile. There were findings consistent with an appreciable right lower extremity soft tissue infection. Given the limitations of the CT scanner secondary to the patient's body habitus he was unable to undergo CT imaging. He underwent [id number] ultrasound in the emergency department. He was found to have a bilirubin of 2, C-reactive protein 262.4, procalcitonin 0.427. His INR is 1.37. Multiple facilities were called and patient was unable to be transferred. Discussion was held with the surgeon on-call at this facility, Dr. Albright, and it was explained that even if the patient could forego imaging and there was a high clinical suspicion for a soft tissue infection necessitating surgical intervention the patient was a prohibitive risk and unable to be technically operated on at this facility and recommendations were for immediate transfer as he exceeds the operating room weight capacity, capabilities, and resources at this facility. Subsequently numerous facilities were contacted and patient was unable to be transferred. Ultimately the ER provider had discussion with the CUSTOMER EXPERIENCE LEADER at this facility and patient was admitted with plan for possible imaging and transfer if indicated. [facility] Disclaimer: The information contained in this section may have been updated after the patient was seen, as this information can be updated by other users. 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 Tachycardia Bilateral knee pain DDD (degenerative disc disease), lumbar Depression Morbid obesity with body mass index of 70 and over in adult CHF (congestive heart failure) COPD (chronic obstructive pulmonary disease) Diabetes Dyspnea BMI 60.0-69.9, adult Obesity Anxiety disorder Hypertension Diabetes type 2, uncontrolled Surgical History S/P gastric sleeve procedure History of gastric bypass Family History (Updated 12/08/24 @ 00:55 by Allison Graham RN) No significant family history Cancer Father Social History (Updated 12/08/24 @ 03:19 by Allison Graham RN) Smoking Status: Former smoker tobacco type: smokeless tobacco alcohol intake: former year quit: 2021 counseling given: Yes counseling provided: provider counseling substance use type: denies use current occupational status: unemployed and disabled Travel in the last 8 weeks?: None household members: spouse and children housing: house marital status: number of children: 1 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 current occupational exposures/hazards: No pets and animals: Yes pets and animals: cat(s) diet: other caffeine: Yes physical activity: none Have you lived/traveled outside [place] in past 30 days?: No Contact w/someone who lives/traveled outside US past 30 days?: No Exposure to someone with infectious disease in past 14 days?: No Do you have a fever (greater than 100.4 F or 38 C)?: No Have you tested positive for COVID-19?: No Exposed to someone with COVID-19 in past 14 days?: No Do you have a sore throat?: No Do you have a cough?: No Do you have any weakness?: No Do you have any diarrhea?: No Are you experiencing any unusual bleeding?: No Do you have any muscle aches/pain?: No Do you have any abdominal pain?: No Are you experiencing loss of taste or smell?: No Review of Systems *Neurologic Neurologic: Reports system reviewed and no additional complaints, except as documented Meds Home Medications and Allergies Home Medications ?Medication ?Instructions ?Recorded ?Confirmed ?Type pen needle, diabetic 32 gauge x #100 ea 09/16/23 12/08/24 Rx (Comfort EZ Pen Nixon) insulin syringe-needle U-100 1 mL #10 ea 02/18/24 12/08/24 History 30 gauge x 1/2 (BD Insulin Syringe Ultra-Fine) metformin 1,000 mg tablet 1,000 mg PO BID 02/18/24 12/08/24 History metoclopramide HCl 10 mg tablet 10 mg PO QID 02/18/24 12/08/24 History rivaroxaban 20 mg tablet (Xarelto) 20 mg PO QPMWITHMEAL 02/18/24 12/08/24 History diltiazem HCl 120 mg 120 mg PO DAILY #90 caps 06/23/24 12/08/24 Rx capsule,extended release 24 hr cariprazine 3 mg capsule (Vraylar) 3 mg PO DAILY #90 caps 08/09/24 12/08/24 Rx atorvastatin 40 mg tablet 40 mg PO HS #90 tabs 08/22/24 12/08/24 Rx albuterol sulfate 90 mcg/actuation 2 puff inhalation Q4-6H PRN 09/27/24 12/08/24 Rx aerosol inhaler shortness of breath or wheezing #8.5 grams gabapentin 600 mg tablet 600 mg PO TID #90 tabs 09/27/24 12/08/24 Rx lorazepam 1 mg tablet 1 mg PO DAILYP PRN anxiety #15 tabs 09/27/24 12/08/24 Rx omeprazole 40 mg capsule,delayed 40 mg PO BID #90 caps 10/24/24 12/08/24 Rx release torsemide 20 mg tablet 40 mg (2 x 20 mg) PO DIRECTED 11/02/24 12/08/24 Rx PRN edema #180 tabs hydrocodone 10 mg-acetaminophen 1 tab PO TIDP PRN pain #90 tabs 11/23/24 12/08/24 Rx 325 mg tablet mupirocin 2 % topical ointment 1 applic topical BID infection 14 11/30/24 12/08/24 Rx days #22 grams sulfamethoxazole 800 1 tab PO BID infection 14 days #28 11/30/24 12/08/24 Rx mg-trimethoprim 160 mg tablet tabs (Bactrim DS) bisoprolol fumarate 5 mg tablet 5 mg PO BID 12/08/24 12/08/24 History spironolactone 50 mg tablet 50 mg PO DAILY 12/08/24 12/08/24 History trazodone 100 mg tablet 100 mg PO HS 12/08/24 12/08/24 History venlafaxine 150 mg 150 mg PO DAILY 12/08/24 12/08/24 History capsule,extended release 24 hr New Prescriptions to Start Prescriptions: Allergies Allergy/AdvReac Type Severity Reaction Status Date / Time vancomycin AdvReac Severe Redness of Verified 12/08/24 08:07 Skin clindamycin AdvReac Mild Nausea Verified 12/08/24 08:13 doxycycline AdvReac Mild Upset Verified 11/30/24 15:04 stomach, heartbur Exam (Inpt) Vital signs and Labs for Last 24 Hours: Temp Pulse Resp BP Pulse Ox O2 Del Method 98.6 F 92 H 18 128/66 95 Room Air 12/08/24 08:00 12/08/24 08:00 12/08/24 08:00 12/08/24 08:00 12/08/24 08:00 12/08/24 08:00 Laboratory Results - last 24 hr 12/07/24 15:29: WBC 10.9 H, RBC 4.99, Hgb 12.9 L, Hct 40.7 L, MCV 81.6, MCH 25.9 L, MCHC 31.7 L, RDW 16.5, Plt Count 178, MPV 9.6, Neut % (Auto) 86.7 H, Lymph % (Auto) 5.3 L, [place] % (Auto) 6.9, Eos % (Auto) 0.1, Baso % (Auto) 0.3, Neut # (Auto) 9.5 H, Lymph # (Auto) 0.6 L, [place] # (Auto) 0.8, Eos # (Auto) 0.0, Baso # (Auto) 0.0, Total Counted 100, Neutrophils % (Manual) 87 H, Lymphocytes % (Manual) 7 L, Monocytes % (Manual) 6, Platelet Estimate Normal, RBC Morphology Normal, ESR 35 H, PT 14.9 H, INR 1.37 H, APTT 35.9 H, Sodium 131 L, Potassium 3.8, Chloride 93 L, Carbon Dioxide 27, Anion Gap 14.8, BUN 10, Creatinine 0.80, Estimated Creat Clear 125, Estimated GFR 104, Est GFR ( Amer) 125, Glucose 248 H, Lactate 3.3 H, Calcium 9.1, Total Bilirubin 2.0 H, AST 22, ALT 21, Alkaline Phosphatase 74, C-Reactive Protein 262.4 H, Total Protein 7.9, Albumin 4.2, Globulin 3.7 H, Albumin/Globulin Ratio 1.1, Procalcitonin 0.427 12/07/24 23:37: Lactate 4.4 H 12/08/24 00:26: POC Glucose 286 H 12/08/24 02:07: Lactate 2.6 H 12/08/24 05:35: WBC 9.1, RBC 4.62, Hgb 11.7 L, Hct 37.5 L, MCV 81.2, MCH 25.3 L, MCHC 31.2 L, RDW 16.5, Plt Count 159, MPV 10.1, Neut % (Auto) 86.9 H, Lymph % (Auto) 5.7 L, [place] % (Auto) 6.4, Eos % (Auto) 0.0 L, Baso % (Auto) 0.2, Neut # (Auto) 7.9 H, Lymph # (Auto) 0.5 L, [place] # (Auto) 0.6, Eos # (Auto) 0.0, Baso # (Auto) 0.0, Sodium 132 L, Potassium 4.0, Chloride 94 L, Carbon Dioxide 30, Anion Gap 12.0, BUN 14 D, Creatinine 0.90, Estimated Creat Clear 111, Estimated GFR 90, Est GFR ( Amer) 109, Glucose 320 H D, Calcium 8.6, Phosphorus 3.7, Magnesium 1.4 L, Total Bilirubin 1.7 H, AST 29 D, ALT 18, Alkaline Phosphatase 93, Total Protein 6.6, Albumin 3.3 L D, Globulin 3.3 H, Albumin/Globulin Ratio 1.0 L, Triglycerides 92, Cholesterol 70 L, LDL Cholesterol Direct < 30.00 L, VLDL Cholesterol 18, HDL Cholesterol 18 L, Cholesterol/HDL Ratio 3.9 H 12/08/24 05:46: POC Glucose 281 H I & O for Labs for Last 24 Hours: Intake & Output 12/05/24 12/06/24 12/07/24 12/08/24 11:59 11:59 11:59 11:59 Intake Total 250 / 250 Output Total 3500 / 3500 Balance -3250 / -3250 Weight 610 lb 10.887 oz Comment:: Examination significantly limited secondary to patient's body habitus even with nursing assistance. However patient has blanching erythema consistent with cellulitis extending from the lower abdomen down to the medial thigh above the knee level. He has significant lymphedema with chronic venous stasis changes distally. Seemingly central area of soft tissue infection involves the medial proximal thigh groin area. At this location there is significant swelling and edema with thickening of the tissues. It is markedly tender. No superficial skin necrosis. There is generalized weeping from the tissues. Unable to evaluate the perineum and perirectal location at this time. Results Labs 12/08/24 05:35 12/08/24 05:35 Labs: Laboratory Results - last 24 hr 12/07/24 15:29: WBC 10.9 H, RBC 4.99, Hgb 12.9 L, Hct 40.7 L, MCV 81.6, MCH 25.9 L, MCHC 31.7 L, RDW 16.5, Plt Count 178, MPV 9.6, Neut % (Auto) 86.7 H, Lymph % (Auto) 5.3 L, [place] % (Auto) 6.9, Eos % (Auto) 0.1, Baso % (Auto) 0.3, Neut # (Auto) 9.5 H, Lymph # (Auto) 0.6 L, [place] # (Auto) 0.8, Eos # (Auto) 0.0, Baso # (Auto) 0.0, Total Counted 100, Neutrophils % (Manual) 87 H, Lymphocytes % (Manual) 7 L, Monocytes % (Manual) 6, Platelet Estimate Normal, RBC Morphology Normal, ESR 35 H, PT 14.9 H, INR 1.37 H, APTT 35.9 H, Sodium 131 L, Potassium 3.8, Chloride 93 L, Carbon Dioxide 27, Anion Gap 14.8, BUN 10, Creatinine 0.80, Estimated Creat Clear 125, Estimated GFR 104, Est GFR ( Amer) 125, Glucose 248 H, Lactate 3.3 H, Calcium 9.1, Total Bilirubin 2.0 H, AST 22, ALT 21, Alkaline Phosphatase 74, C-Reactive Protein 262.4 H, Total Protein 7.9, Albumin 4.2, Globulin 3.7 H, Albumin/Globulin Ratio 1.1, Procalcitonin 0.427 12/07/24 23:37: Lactate 4.4 H 12/08/24 00:26: POC Glucose 286 H 12/08/24 02:07: Lactate 2.6 H 12/08/24 05:35: WBC 9.1, RBC 4.62, Hgb 11.7 L, Hct 37.5 L, MCV 81.2, MCH 25.3 L, MCHC 31.2 L, RDW 16.5, Plt Count 159, MPV 10.1, Neut % (Auto) 86.9 H, Lymph % (Auto) 5.7 L, [place] % (Auto) 6.4, Eos % (Auto) 0.0 L, Baso % (Auto) 0.2, Neut # (Auto) 7.9 H, Lymph # (Auto) 0.5 L, [place] # (Auto) 0.6, Eos # (Auto) 0.0, Baso # (Auto) 0.0, Sodium 132 L, Potassium 4.0, Chloride 94 L, Carbon Dioxide 30, Anion Gap 12.0, BUN 14 D, Creatinine 0.90, Estimated Creat Clear 111, Estimated GFR 90, Est GFR ( Amer) 109, Glucose 320 H D, Calcium 8.6, Phosphorus 3.7, Magnesium 1.4 L, Total Bilirubin 1.7 H, AST 29 D, ALT 18, Alkaline Phosphatase 93, Total Protein 6.6, Albumin 3.3 L D, Globulin 3.3 H, Albumin/Globulin Ratio 1.0 L, Triglycerides 92, Cholesterol 70 L, LDL Cholesterol Direct < 30.00 L, VLDL Cholesterol 18, HDL Cholesterol 18 L, Cholesterol/HDL Ratio 3.9 H 12/08/24 05:46: POC Glucose 281 H Assessment and Plan *Assessment and plan (1) Cellulitis of leg, right: Status: Acute Category: Medical Code(s): L03.115 - Cellulitis of right lower limb (2) Sepsis without septic shock: Status: Acute Category: Medical Code(s): A41.9 - Sepsis, unspecified organism Plan Although examination is limited at this time it appears that the patient has appreciable soft tissue infection of the right groin, thigh, and lower abdomen. Given his findings of sepsis this may need operative intervention. As recommended by the contacted surgeon on-call when the patient was in the emergency department this exceeds the capabilities, capacity, resources, and weight limit of this facility and for appropriate care of the patient he needs immediate transfer to tertiary facility.
[2024-12-08] MEDS: LINEZOLID 600 MG/300 ML IV.SOLN 300 MG IV ×2 (08:55→21:00)
[2024-12-08] MEDS: PANTOPRAZOLE 40MG TABLET 40 MG PO ×2 (08:56→20:38)
[2024-12-08] MEDS: SPIRONOLACTONE 25MG TABLET 50 MG PO (08:56)
[2024-12-08] MEDS: dilTIAZem ER 120MG CAPSULE 120 MG PO (08:56)
[2024-12-08] MEDS: BISOPROLOL 5MG TABLET 5 MG PO ×2 (08:56→20:38)
[2024-12-08] MEDS: METOCLOPRAMIDE 10MG TABLET 10 MG PO ×4 (08:56→20:38)
[2024-12-08] MEDS: VENLAFAXINE XR 75MG CAPSULE 150 MG PO (08:57)
[2024-12-08] MEDS: GABAPENTIN 600MG TABLET 600 MG PO ×3 (09:02→20:38)
[2024-12-08 09:16] LABS: Lymphocytes % 5 % (10-50); Monocytes % 5 % (2-9); Neutrophils % 79 % (42-76); Total Cells Counted 100
[2024-12-08 09:19] LABS: RBC Morphology Normal
[2024-12-08 09:20] LABS: Platelet Estimate Normal
[2024-12-08] MEDS: CLINDAMYCIN PHOSPHATE/D5W 900 MG/50 ML PIGGYBACK 100 MG IV ×2 (10:41→16:13)
[2024-12-08] MEDS: HYDROCODONE 10MG/APAP 325MG TAB 1 TAB PO ×2 (11:12→20:40)
[2024-12-08] MEDS: PIPERACILLIN/TAZO 3.375 GM in 0.9 % SODIUM CHLORIDE 50 ML IV ×3 (12:10→20:38)
[2024-12-08] MEDS: BUMETANIDE 1MG/4ML VIAL 2 MG IV ×2 (12:18→15:48)
[2024-12-08 12:30] LABS: POC Glucose,Bedside 335 (70-110)
--- NOTE | 2024-12-08 13:39 | P.PN_ITS ---
Subjective *Date: 12/08/24 *Time: 22:20 Interval history: Denies fever this morning, had elevated temperature overnight. Pulse remains elevated. Stable on room air. Still having significant pain in right upper thigh. States chills however have subsided. No nausea or vomiting. Medical Exam Vital signs and Labs for Last 24 Hours: Vital Signs Temp Pulse Pulse Resp BP BP Pulse Ox 12/08/24 12:40 12/08/24 11:30 99.9 F H 92 H 18 116/72 95 12/08/24 11:00 12/08/24 09:00 12/08/24 08:00 12/08/24 08:00 98.6 F 92 H 18 128/66 95 12/08/24 06:35 12/08/24 05:00 12/08/24 04:00 98.5 F 93 H 17 131/67 96 12/08/24 03:00 12/08/24 02:30 98.9 F 12/08/24 01:30 99.9 F H 12/08/24 01:00 12/08/24 01:00 100.4 F H 12/08/24 00:15 100.5 F H 12/08/24 00:00 108 H 19 99 12/07/24 23:48 100.5 F H 108 H 18 144/70 H 99 12/07/24 23:23 98.4 F 118 H 18 118/59 L 12/07/24 21:01 117 H 103/87 L 98 12/07/24 20:30 103 H 166/102 H 97 12/07/24 20:01 101 H 157/92 H 96 12/07/24 19:31 88 128/91 H 96 12/07/24 19:19 101.2 F H 95 H 19 150/70 H 97 12/07/24 19:00 99 H 167/89 H 96 12/07/24 18:32 102 H 153/93 H 91 L 12/07/24 18:00 114 H 20 121/81 94 L 12/07/24 17:30 117 H 22 126/95 H 94 L 12/07/24 17:00 86 20 137/87 92 L 12/07/24 16:00 116 H 18 115/99 H 93 L 12/07/24 15:30 111 H 18 119/77 93 L 12/07/24 15:00 117 H 19 130/91 H 92 L O2 Del Method 12/08/24 12:40 Room Air 12/08/24 11:30 Room Air 12/08/24 11:00 Room Air 12/08/24 09:00 Room Air 12/08/24 08:00 Room Air 12/08/24 08:00 Room Air 12/08/24 06:35 Room Air 12/08/24 05:00 Room Air 12/08/24 04:00 Room Air 12/08/24 03:00 Room Air 12/08/24 02:30 12/08/24 01:30 12/08/24 01:00 Room Air 12/08/24 01:00 12/08/24 00:15 12/08/24 00:00 Room Air 12/07/24 23:48 Room Air 12/07/24 23:23 Room Air 12/07/24 21:01 12/07/24 20:30 12/07/24 20:01 12/07/24 19:31 12/07/24 19:19 Room Air 12/07/24 19:00 Room Air 12/07/24 18:32 Room Air 12/07/24 18:00 Room Air 12/07/24 17:30 Room Air 12/07/24 17:00 Room Air 12/07/24 16:00 Room Air, Ambu-Bag 12/07/24 15:30 Room Air 12/07/24 15:00 Room Air Intake and Output 12/07/24 12/08/24 12/08/24 23:59 07:59 15:59 Intake Total 250 / 620 370 / 620 Output Total 3500 / 4250 750 / 4250 Balance -3250 / -3630 -380 / -3630 Intake: Intake, Oral Amount 250 / 620 370 / 620 Output: Output, Urine Amount 2500 / 3250 750 / 3250 Output, Urine Amount (Catheter) 1000 / 1000 Barber 1000 / 1000 Other: Number of Unmeasured Voids 0 0 Weight 258.548 kg 277 kg Patient Weight 12/08/24 23:59 Weight 277 kg Laboratory Results - last 24 hr 12/07/24 15:29: WBC 10.9 H, RBC 4.99, Hgb 12.9 L, Hct 40.7 L, MCV 81.6, MCH 25.9 L, MCHC 31.7 L, RDW 16.5, Plt Count 178, MPV 9.6, Neut % (Auto) 86.7 H, Lymph % (Auto) 5.3 L, [place] % (Auto) 6.9, Eos % (Auto) 0.1, Baso % (Auto) 0.3, Neut # (Auto) 9.5 H, Lymph # (Auto) 0.6 L, [place] # (Auto) 0.8, Eos # (Auto) 0.0, Baso # (Auto) 0.0, Total Counted 100, Neutrophils % (Manual) 87 H, Lymphocytes % (Manual) 7 L, Monocytes % (Manual) 6, Platelet Estimate Normal, RBC Morphology Normal, ESR 35 H, PT 14.9 H, INR 1.37 H, APTT 35.9 H, Sodium 131 L, Potassium 3.8, Chloride 93 L, Carbon Dioxide 27, Anion Gap 14.8, BUN 10, Creatinine 0.80, Estimated Creat Clear 125, Estimated GFR 104, Est GFR ( Amer) 125, Glucose 248 H, Lactate 3.3 H, Calcium 9.1, Total Bilirubin 2.0 H, AST 22, ALT 21, Alkaline Phosphatase 74, C-Reactive Protein 262.4 H, Total Protein 7.9, Albumin 4.2, Globulin 3.7 H, Albumin/Globulin Ratio 1.1, Procalcitonin 0.427 12/07/24 23:37: Lactate 4.4 H 12/08/24 00:26: POC Glucose 286 H 12/08/24 02:07: Lactate 2.6 H 12/08/24 05:35: WBC 9.1, RBC 4.62, Hgb 11.7 L, Hct 37.5 L, MCV 81.2, MCH 25.3 L, MCHC 31.2 L, RDW 16.5, Plt Count 159, MPV 10.1, Neut % (Auto) 86.9 H, Lymph % (Auto) 5.7 L, [place] % (Auto) 6.4, Eos % (Auto) 0.0 L, Baso % (Auto) 0.2, Neut # (Auto) 7.9 H, Lymph # (Auto) 0.5 L, [place] # (Auto) 0.6, Eos # (Auto) 0.0, Baso # (Auto) 0.0, Total Counted 100, Neutrophils % (Manual) 79 H, Band Neutrophils % 11.0 H, Lymphocytes % (Manual) 5 L, Monocytes % (Manual) 5, Platelet Estimate Normal, RBC Morphology Normal, Sodium 132 L, Potassium 4.0, Chloride 94 L, Carbon Dioxide 30, Anion Gap 12.0, BUN 14 D, Creatinine 0.90, Estimated Creat Clear 111, Estimated GFR 90, Est GFR ( Amer) 109, Glucose 320 H D, Calcium 8.6, Phosphorus 3.7, Magnesium 1.4 L, Total Bilirubin 1.7 H, AST 29 D, ALT 18, Alkaline Phosphatase 93, Total Protein 6.6, Albumin 3.3 L D, Globulin 3.3 H, Albumin/Globulin Ratio 1.0 L, Triglycerides 92, Cholesterol 70 L, LDL Cholesterol Direct < 30.00 L, VLDL Cholesterol 18, HDL Cholesterol 18 L, Cholesterol/HDL Ratio 3.9 H 12/08/24 05:46: POC Glucose 281 H 12/08/24 12:13: POC Glucose 335 H* I & O for Labs for Last 24 Hours: Intake & Output 12/05/24 12/06/24 12/07/24 12/08/24 23:59 23:59 23:59 23:59 Intake Total 620 / 620 Output Total 4250 / 4250 Balance -3630 / -3630 Weight 258.548 kg 277 kg Constitutional: Present mild distress, morbidly obese, chronically ill appearing and cooperative Head: Present atraumatic and normocephalic ENT: Present normal exam Respiratory: Present distant breath sounds and normal respiratory effort; Absent rhonchi or wheezes Cardiac: Present Reg Rate and Rhythm GI: Present soft and normal bowel sounds; Absent distention or tenderness (male): Absent testicular tenderness Comment:: Barber in place. Retracted penis. No pain around scrotum or inguinal folds bilaterally. Extremities: Present tenderness (Right upper thigh where he has significant induration and erythema.) and edema (Dense woody chronic lymphedema with 3+ edema present to thighs) Skin: Present intact and erythema Comment:: Chronic stasis changes bilateral lower extremities. Foot wounds. Neuro: Present Grossly Intact, alert, awake, oriented x 3 and moves all extremities Assessment and Plan *Assessment and plan (1) Sepsis without septic shock: Status: Acute Category: Medical Code(s): A41.9 - Sepsis, unspecified organism (2) Cellulitis of leg, right: Status: Acute Category: Medical Code(s): L03.115 - Cellulitis of right lower limb (3) Boil of lower extremity: Status: Acute Category: Medical Code(s): L02.429 - Furuncle of limb, unspecified (4) Volume overload: Status: Acute Category: Medical Code(s): E87.70 - Fluid overload, unspecified (5) Chronic a-fib: Status: Acute Category: Medical Code(s): I48.20 - Chronic atrial fibrillation, unspecified (6) QUINN (obstructive sleep apnea): Problem Comment: Severe QUINN and nocturnal hypoxemia. He was unable to tolerate CPAP in the past and needed trial with BiPAP. He was offered an split-night with BiPAP titration but due to issues with transportation he requested a home sleep study. Status: Chronic Category: Medical Code(s): G47.33 - Obstructive sleep apnea (adult) (pediatric) (7) Morbid obesity with BMI of 70 and over, adult: Status: Acute Category: Medical Code(s): E66.01 - Morbid (severe) obesity due to excess calories; Z68.45 - Body mass index [BMI] 70 or greater, adult (8) Diabetic neuropathy: Status: Acute Qualifiers: Diabetes mellitus type: type 2 Diabetes mellitus complication detail: diabetic polyneuropathy Qualified Code(s): E11.42 - Type 2 diabetes mellitus with diabetic polyneuropathy Category: Medical Code(s): E11.40 - Type 2 diabetes mellitus with diabetic neuropathy, unspecified (9) Diabetic ulcer of left foot associated with diabetes mellitus due to underlying condition, limited to breakdown of skin: Status: Acute Qualifiers: Diabetic foot ulcer location: toe Qualified Code(s): E08.621 - Diabetes mellitus due to underlying condition with foot ulcer Category: Medical Code(s): E08.621 - Diabetes mellitus due to underlying condition with foot ulcer; L97.521 - Non-pressure chronic ulcer of other part of left foot limited to breakdown of skin (10) Hyperglycemia due to type 2 diabetes mellitus: Status: Chronic Qualifiers: Diabetes mellitus local intermodal truck driver insulin use: without local intermodal truck driver use Qualified Code(s): E11.65 - Type 2 diabetes mellitus with hyperglycemia Category: Medical Code(s): E11.65 - Type 2 diabetes mellitus with hyperglycemia (11) Paroxysmal A-fib: Status: Resolved Category: Medical Code(s): I48.0 - Paroxysmal atrial fibrillation (12) Hyperlipidemia: Status: Acute Qualifiers: Hyperlipidemia type: mixed hyperlipidemia Qualified Code(s): E78.2 - Mixed hyperlipidemia Category: Medical Code(s): E78.5 - Hyperlipidemia, unspecified Plan 49-year-old man admitted for severe cellulitis involving the right lower quadrant groin and right upper thigh. Patient is morbidly obese and unable to fit in any scanner or operating table in the facility. Surgical evaluation was declined due to inability to operate. Other facilities have been contacted to accept patient however they are also limited by the patient's weight. At this time we cannot exclude necrotizing fasciitis, there is concern for severe infection but again we are limited by facility capabilities. Will continue empiric antibiotic treatment for necrotizing fasciitis while urgently looking for a facility capable of evaluating and treating the patient further. Currently hemodynamically stable, and in significant pain, will manage supportively for the time being. All of this was discussed with the patient and he understands. Continues to require inpatient management. Initial presentation meeting sepsis criteria. Showing some slight defervescence today. Prognosis guarded. Problems addressed as follows: Severe cellulitis of abdomen groin and lower extremity Sepsis Suspected right upper thigh abscess - red man syndrome with vancomycin - Clindamycin 900 mg IV every 8 - Linezolid 600 mg IV every 12 - Zyvox 3.375 g every 8 hours - Blood cultures pending - Formal ultrasound ordered for the morning to evaluate for fluid collection/abscess - White count normal at 9.1 today, CRP elevated at 252, ESR 35. Lactate 2.6 this morning. Kidney function normal BUN 14, creatinine 0.9. Repeat CBC, CMP, magnesium and inflammatory markers ordered for the morning. Podiatry consulted for diabetic foot wound Hyperlipidemia Hypertension Paroxysmal A-fib - Continue Lipitor 40 mg nightly for hyperlipidemia - Continue bisoprolol 5 mg twice daily and diltiazem 120 mg daily for paroxysmal A-fib and hypertension - Continue Xarelto 20 mg daily Continue Vraylar 3 mg daily and Effexor 150 mg daily for mood disorder Continue trazodone 100 mg nightly for sleep Continue gabapentin 600 mg 3 times a day for diabetic neuropathy Poorly controlled diabetes: A1c elevated at 10. Initiate insulin glargine 25 units nightly. Continue sliding scale insulin high intensity with fingersticks ACHS. Initiate 10 units in addition to sliding scale with every meal Aggressive diuresis with Bumex 2 mg twice daily for edema and volume overload. -3 L since admission - Continue spironolactone 50 mg daily Continue Reglan 10 mg 4 times a day with meals and at bedtime for diabetic gastroparesis Urinary incontinence: Continue Barber for incontinence as well as strict monitoring of fluid output during diuresis Full code Clear liquid diet
--- NOTE | 2024-12-08 14:36 | HMH.PHAINT1 ---
Pharmacy Intervention Comments: MEDICATION RECONCILIATION COMPLETED ON PATIENT USING EXTERNAL FILL HISTORY FROM PHARMACY AND LIST FROM PCP OFFICE. -ADRIANA SHEETS, GILD
[2024-12-08 14:41] LABS: Hemoglobin A1C 10.1 % (4.0-6.0)
[2024-12-08] MEDS: humaLOG 100 UNITS/ML 10ML VIAL (SSI) 10 UNIT SUBCUT (15:45)
[2024-12-08 16:06] LABS: POC Glucose,Bedside 276 (70-110)
--- NOTE | 2024-12-08 16:31 | PC.NURSE ---
AOX4, HAS SAT UP TO CHAIR FOR MOST OF SHIFT, CARMONA CATH IN PLACE. MEDICATED FOR PAIN ONCE THIS SHIFT.
[2024-12-08] MEDS: RIVAROXABAN 10MG TABLET 20 MG PO (16:47)
--- NOTE | 2024-12-08 18:14 | PC.NURSE ---
ABD CIRCUMFERENCE APPROX 85IN
[2024-12-08] MEDS: TRAZODONE 50MG TABLET 100 MG PO (20:38)
[2024-12-08] MEDS: ATORVASTATIN 40MG TABLET 40 MG PO (20:38)
[2024-12-08] MEDS: INSULIN GLARGINE 100 UNITS/ML 3ML FLEXPEN 25 UNIT SUBCUT (21:08)
[2024-12-08 21:34] LABS: POC Glucose,Bedside 237 (70-110)
[2024-12-09] VITALS (8 sets, daily range): BP systolic 104–138; BP diastolic 50–86; PULSE 72–91; RESP 16–22; TEMP 36.8–37.3; O2SAT 93–95; BMI 75.8
--- NOTE | 2024-12-09 | US_ITS ---
FINAL REPORT CLINICAL HISTORY: RT THIGH ABCESS COMPARISON: None FINDINGS: Limited sonographic images were obtained of the soft tissues in the right thigh at the area of concern. There is extensive edema from the right groin extending into the medial upper thigh. There are irregular fluid collections within the general region of edema. No discrete dominant fluid collection identified. Findings are most consistent with cellulitis and phlegmon. IMPRESSION: Findings most consistent with cellulitis and phlegmon. CT with contrast could better displayed the extent of inflammatory involvement. Reviewed, Interpreted and Dictated by Immanuel Verdin MD Transcribed by Iveth Webster Authenticated and [facility]
[2024-12-09] MEDS: PIPERACILLIN/TAZO 3.375 GM in 0.9 % SODIUM CHLORIDE 50 ML IV ×4 (02:00→20:40)
[2024-12-09] MEDS: CLINDAMYCIN PHOSPHATE/D5W 900 MG/50 ML PIGGYBACK 100 MG IV ×3 (02:00→16:09)
[2024-12-09] MEDS: HYDROCODONE 10MG/APAP 325MG TAB 1 TAB PO ×3 (03:40→18:43)
--- NOTE | 2024-12-09 04:18 | PC.NURSE ---
Patient is alert and oriented x4. He was observed to have both wakeful periods and resting periods (eyes closed, respirations even/unlabored on room air) throughout the majority of the night; patient has also remained resting up to the chair. He continues to complain of significant right upper thigh/groin pain; this area remains red, swollen, raised, tender, and [id number]. [place] administered per MAR for pain control with satisfactory outcomes. Lower extremities remain swollen. Seeping areas noted to right heel/funk. Auscultation of his heart, lungs, and bowels remain within normal findings. Barber catheter remains intact; urine output measured and documented accordingly. Scheduled medications and IV antibiotics administered as appropriately per SEP. Patient ambulates with cane use. ACHS glucose checks performed. Tolerates a clear liquid diet very well. He has remained afebrile this shift; oscillating fan in room for comfort. Refused CPAP. Softer blood pressures and heart rate (80s to 90s range) noted this shift. At this time, the patient is reclining in chair without any further complaints. No new needs thus far. Call light within reach.
[2024-12-09] MEDS: humaLOG 100 UNITS/ML 10ML VIAL (SSI) 10 UNIT SUBCUT ×3 (05:47→16:25)
[2024-12-09] MEDS: humaLOG 100 UNITS/ML 10ML VIAL (SSI) SUBCUT ×4 (05:47→21:40)
[2024-12-09 05:48] LABS: POC Glucose,Bedside 229 (70-110)
[2024-12-09 06:18] LABS: Basophils % 0.1 % (0.1-2.0); Eosinophils % 0.3 % (0.1-12.0); Hematocrit 34.5 % (42.0-52.0); Immature Granulocytes # 0.05 10^3uL; Immature Granulocytes % 0.7 %; Lymphocytes # 0.5 K/mm3 (0.7-4.5); Lymphocytes % 6.6 % (10-50); Mean Corpuscular HGB Conc 31.9 g/dL (31.8-35.4); Mean Corpuscular Hemoglobin 25.6 pg (27.0-31.2); Mean Corpuscular Volume 80.2 fl (80-94); Mean Platelet Volume 10.3 fl (7.4-10.4); Monocytes # 0.6 K/mm3 (0.1-1.0); Monocytes % 8.6 % (1.7-9.3); Neutrophils % 83.7 % (37.0-80.0); Nucleated Red Blood Cells # 0 10^3/uL; Nucleated Red Blood Cells % 0 %; Platelet Count 147 K/mm3 (142-424); Red Cell Distribution Width 16.3 % (11.5-17.5); Red Cell Distribution Width-SD 47.6 fL; White Blood Count 7.1 K/mm3 (4.8-10.8)
[2024-12-09 06:24] LABS: MANUAL DIFFERENTIAL MANUAL DIFFERENTIAL (MANUAL DIFF)
[2024-12-09 06:30] LABS: Alanine Aminotransferase 15 U/L (12-78); Albumin Level 3.1 g/dl (3.5-5.0); Alkaline Phosphatase 74 U/L (38-126); Aspartate Amino Transferase 23 U/L (17-59); Bilirubin,Total 1.8 mg/dl (0.2-1.3); Blood Urea Nitrogen 13 mg/dl (9-20); Carbon Dioxide 30 mmol/L (22.0-30.0); Chloride 92 mmol/L (98-107); Creatinine Clearance Estimated 143 mL/min (50-200); Estimated Glomerular Filt Rate 121 ml/min (>60); GFR (African American) 146 ML/MIN (>60); Globulin 3.2 g/dL (1.3-3.2); Glucose 244 mg/dl (74-100); Magnesium 1.5 mg/dl (1.6-2.3); Sodium 130 mmol/L (136-145); Total Protein,Serum 6.3 g/dl (6.3-8.2)
[2024-12-09 06:48] LABS: C-Reactive Protein 357.4 mg/L (0-4)
--- NOTE | 2024-12-09 06:51 | PC.NURSE ---
Lab called me to report a critical potassium value of 3.0 for the patient. Wayne Martinez MD was paged at this time to inform him about the critical lab value.
[2024-12-09 07:29] LABS: Lymphocytes % 8 % (10-50); Monocytes % 5 % (2-9); Neutrophils % 87 % (42-76); Platelet Estimate Normal; RBC Morphology Normal; Total Cells Counted 100
[2024-12-09] MEDS: MAGNESIUM SULFATE IN WATER 2 GM/50 ML PIGGYBACK IV ×2 (08:15→09:15)
[2024-12-09] MEDS: LINEZOLID 600 MG/300 ML IV.SOLN 300 MG IV ×2 (08:15→20:40)
[2024-12-09] MEDS: VENLAFAXINE XR 75MG CAPSULE 150 MG PO (08:26)
[2024-12-09] MEDS: BISOPROLOL 5MG TABLET 5 MG PO ×2 (08:27→20:40)
[2024-12-09] MEDS: PANTOPRAZOLE 40MG TABLET 40 MG PO ×2 (08:27→20:40)
[2024-12-09] MEDS: SPIRONOLACTONE 25MG TABLET 50 MG PO (08:27)
[2024-12-09] MEDS: METOCLOPRAMIDE 10MG TABLET 10 MG PO ×4 (08:27→20:40)
[2024-12-09] MEDS: POTASSIUM CHLORIDE 20MEQ TAB 40 MEQ PO ×3 (08:28→16:09)
[2024-12-09] MEDS: ENOXAPARIN 60MG/0.6ML SYRINGE 60 MG SUBCUT ×2 (08:28→20:40)
[2024-12-09] MEDS: BUMETANIDE 1MG/4ML VIAL 2 MG IV ×2 (08:30→16:18)
[2024-12-09] MEDS: dilTIAZem ER 120MG CAPSULE 120 MG PO (08:30)
[2024-12-09] MEDS: GABAPENTIN 600MG TABLET 600 MG PO ×3 (08:30→20:40)
--- NOTE | 2024-12-09 09:25 | PC.WOUNDNOTE ---
RLE with erythema and open area with drainage (R) foot with open area and drainage (R) foot with open area and drainage LLE with erythema (R) foot (L) foot with wound to heel (L) foot with wound to heel
--- NOTE | 2024-12-09 11:18 | [facility].PTWOUND ---
Rehab Inpt Wound Evaluation Rehab IP Wound Evaluation Start: 12/09/24 08:20 Freq: ONCE Status: Active Protocol: Document 12/09/24 10:13 MINGO (Rec: 12/09/24 10:27 MINGO [id number]) Rehab PT Wound Assessment Patient Status Premedicated Prior No to Dressing Change Subjective Subjective Pt reports she has had chronic wounds for ~ 6 months. Pt reports he has no distal LE sensation and denies pain. Wound Left Heel Wound Type Pressure Ulcer Wound Staging Stage III Query Text:Stage I - Unbroken, red skin, no blanching. Stage II - Skin broken, superficial skin loss involving epidermis alone or also dermis. Partial loss of skin layers. Stage III - Pressure area involves epidermis, dermis and subcutaneous tissue, full thickness skin loss. Stage IV - Pressure area involves epidermis, subcutaneous tissue, bone and other supportive tissue. Full thickness skin loss with extensive destruction of underlying tissue and structures. Wound Length (cm) 0.9 Wound Width (cm) 1.7 Wound Depth (cm) 0.5 Wound Bed Appearance Dusky Red Surrounding Tissue Dark Red Appearance Wound Drainage None Description Drainage Amount None Drainage Odor No Odor Dressing Status Changed Primary Dressing Non-Adherent Gauze Pad Right Lateral Funk Wound Type Stasis Ulcer Wound Staging Stage II Query Text:Stage I - Unbroken, red skin, no blanching. Stage II - Skin broken, superficial skin loss involving epidermis alone or also dermis. Partial loss of skin layers. Stage III - Pressure area involves epidermis, dermis and subcutaneous tissue, full thickness skin loss. Stage IV - Pressure area involves epidermis, subcutaneous tissue, bone and other supportive tissue. Full thickness skin loss with extensive destruction of underlying tissue and structures. Wound Length (cm) 2.5 Wound Width (cm) 2.3 Wound Depth (cm) 0.1 Wound Bed Appearance Beefy Red,[place] Percentage 100 Granulated (%) Wound Margins Well Defined Description Surrounding Tissue Bright Red Appearance Wound Drainage Serosanguineous Description Drainage Amount Small Dressing Status Changed Wound Topical Saline Irrigant Solution/Irrigant Primary Dressing Composite Right Foot Wound Type Pressure Ulcer Is This a Chronic Yes Wound Wound Staging Stage II Query Text:Stage I - Unbroken, red skin, no blanching. Stage II - Skin broken, superficial skin loss involving epidermis alone or also dermis. Partial loss of skin layers. Stage III - Pressure area involves epidermis, dermis and subcutaneous tissue, full thickness skin loss. Stage IV - Pressure area involves epidermis, subcutaneous tissue, bone and other supportive tissue. Full thickness skin loss with extensive destruction of underlying tissue and structures. Wound Length (cm) 4.8 Wound Width (cm) 2.3 Wound Depth (cm) 0.1 Wound Bed Appearance Beefy Red,[place] Percentage 100 Granulated (%) Wound Margins Well Defined Description Wound Drainage Serosanguineous Description Drainage Amount Small Drainage Odor No Odor Dressing Status Changed Wound Topical Saline Irrigant Solution/Irrigant Primary Dressing Composite Plan/Recommendation Comment PT assessed, cleaned, and dressed 3 wounds (R lateral foot, distal lateral funk, and L heel). PT dressed R lateral foot and distal lateral funk wound in boarded gauze re-enforced by valerie. PT dressed L heel wound in telfa pad re-enforced by valerie. Nursing to follow up with dressing changes as needed and to contact wound care with further questions. Eval Complexity Eval Charge Codes 08763 - Moderate Complexity PHYSICIAN CERTIFICATION: I certify the specified therapy services for Gonzalo Russell are required, authorized, and reviewed every 30 days.
[2024-12-09] MEDS: VRAYLAR 3 MG 1 EACH PO (11:49)
[2024-12-09 11:59] LABS: POC Glucose,Bedside 233 (70-110)
[2024-12-09] MEDS: RIVAROXABAN 10MG TABLET 20 MG PO (16:23)
--- NOTE | 2024-12-09 17:12 | P.PN_ITS ---
Subjective *Date: 12/09/24 *Time: 17:12 Interval history: Afebrile overnight. Stable on room air. Diuresing well. -7 L since admission. Some improvement in pain in his leg but still painful at site of infection right upper thigh. Tolerated insulin glargine last night, glucose remains elevated however at 244 morning labs. Initiating diet this morning. Medical Exam Vital signs and Labs for Last 24 Hours: Vital Signs Temp Pulse Resp BP Pulse Ox O2 Del Method 12/09/24 16:00 98.4 F 85 22 119/86 93 L Room Air 12/09/24 14:22 Room Air 12/09/24 13:00 Room Air 12/09/24 12:00 98.4 F 82 20 118/70 95 Room Air 12/09/24 11:00 Room Air 12/09/24 09:00 Room Air 12/09/24 08:00 Room Air 12/09/24 08:00 98.2 F 72 22 138/76 94 L Room Air 12/09/24 06:35 Room Air 12/09/24 05:00 Room Air 12/09/24 03:50 98.6 F 84 19 104/50 L 93 L Room Air 12/09/24 03:00 Room Air 12/09/24 01:00 Room Air 12/09/24 00:00 99.2 F 87 18 111/67 93 L Room Air 12/08/24 23:00 Room Air 12/08/24 21:00 Room Air 12/08/24 20:00 98 H 16 95 Room Air 12/08/24 20:00 98.8 F 98 H 16 134/75 95 Room Air 12/08/24 18:13 Room Air Intake and Output 12/09/24 12/09/24 12/09/24 07:59 15:59 23:59 Intake Total 1110 / 2100 990 / 2100 Output Total 800 / 3925 3125 / 3925 Balance 310 / -1825 -2135 / -1825 Intake: Intake, Oral Amount 710 / 1700 990 / 1700 Infusion Intake 400 / 400 Clindamycin Phosphate/D5w 900 50 / 50 mg In 50 ml @ 100 mls/hr IV Q8H [facility] Rx#:[id number] Linezolid 600 mg In 300 ml @ 300 / 300 300 mls/hr IV Q12H [facility] Rx#: [id number] Piperacillin/Tazo 3.375 gm In 0 50 / 50 .9 % Sodium Chloride 50 ml @ 100 mls/hr IV Q6H [facility] Rx#: [id number] Output: Output, Urine Amount 800 / 3925 3125 / 3925 Other: Number of Unmeasured Voids 0 0 Weight 254 kg Patient Weight 12/09/24 23:59 Weight 254 kg Laboratory Results - last 24 hr 12/08/24 20:51: POC Glucose 237 H 12/09/24 05:25: WBC 7.1, RBC 4.30 L, Hgb 11.0 L, Hct 34.5 L, MCV 80.2, MCH 25.6 L, MCHC 31.9, RDW 16.3, Plt Count 147, MPV 10.3, Neut % (Auto) 83.7 H, Lymph % (Auto) 6.6 L, [place] % (Auto) 8.6, Eos % (Auto) 0.3, Baso % (Auto) 0.1, Neut # (Auto) 6.0, Lymph # (Auto) 0.5 L, [place] # (Auto) 0.6, Eos # (Auto) 0.0, Baso # (Auto) 0.0, Total Counted 100, Neutrophils % (Manual) 87 H, Lymphocytes % (Manual) 8 L, Monocytes % (Manual) 5, Platelet Estimate Normal, RBC Morphology Normal, Sodium 130 L, Potassium 3.0 L D, Chloride 92 L, Carbon Dioxide 30, Anion Gap 11.0, BUN 13, Creatinine 0.70 D, Estimated Creat Clear 143, Estimated GFR 121, Est GFR ( Amer) 146 D, Glucose 244 H D, Calcium 8.0 L, Magnesium 1.5 L, Total Bilirubin 1.8 H, AST 23, ALT 15, Alkaline Phosphatase 74, C- Reactive Protein 357.4 H, Total Protein 6.3, Albumin 3.1 L, Globulin 3.2, Albumin/Globulin Ratio 1.0 L 12/09/24 05:40: POC Glucose 229 H 12/09/24 11:44: POC Glucose 233 H I & O for Labs for Last 24 Hours: Intake & Output 12/06/24 12/07/24 12/08/24 12/09/24 23:59 23:59 23:59 23:59 Intake Total 740 / 1800 2100 / 2100 Output Total 7800 / 8075 3925 / 3925 Balance -7060 / -6275 -1825 / -1825 Weight 258.548 kg 254.783 kg 254 kg Microbiology Reports for the Last 24 Hours: Microbiology 12/07/24 15:29 Blood Blood Culture - Preliminary NO GROWTH AFTER 24 HOURS 12/07/24 15:29 Blood Blood Culture - Preliminary NO GROWTH AFTER 24 HOURS Constitutional: Present mild distress, morbidly obese, chronically ill appearing and cooperative Head: Present atraumatic and normocephalic ENT: Present normal exam Respiratory: Present distant breath sounds and normal respiratory effort; Absent rhonchi or wheezes Cardiac: Present Reg Rate and Rhythm GI: Present soft and normal bowel sounds; Absent distention or tenderness (male): Absent testicular tenderness Comment:: Barber in place. Retracted penis. No pain around scrotum or inguinal folds bilaterally. Extremities: Present tenderness (Right upper thigh where he has significant induration and erythema.) and edema (Dense woody chronic lymphedema with 3+ edema present to thighs) Skin: Present intact, erythema and warm (Right upper thigh hot to touch) Comment:: Chronic stasis changes bilateral lower extremities. Foot wounds. Neuro: Present Grossly Intact, alert, awake, oriented x 3 and moves all extremities Assessment and Plan *Assessment and plan (1) Sepsis without septic shock: Status: Acute Category: Medical Code(s): A41.9 - Sepsis, unspecified organism (2) Cellulitis of leg, right: Status: Acute Category: Medical Code(s): L03.115 - Cellulitis of right lower limb (3) Boil of lower extremity: Status: Acute Category: Medical Code(s): L02.429 - Furuncle of limb, unspecified (4) Volume overload: Status: Acute Category: Medical Code(s): E87.70 - Fluid overload, unspecified (5) Chronic a-fib: Status: Acute Category: Medical Code(s): I48.20 - Chronic atrial fibrillation, unspecified (6) QUINN (obstructive sleep apnea): Problem Comment: Severe QUINN and nocturnal hypoxemia. He was unable to tolerate CPAP in the past and needed trial with BiPAP. He was offered an split-night with BiPAP titration but due to issues with transportation he requested a home sleep study. Status: Chronic Category: Medical Code(s): G47.33 - Obstructive sleep apnea (adult) (pediatric) (7) Morbid obesity with BMI of 70 and over, adult: Status: Acute Category: Medical Code(s): E66.01 - Morbid (severe) obesity due to excess calories; Z68.45 - Body mass index [BMI] 70 or greater, adult (8) Diabetic neuropathy: Status: Acute Qualifiers: Diabetes mellitus type: type 2 Diabetes mellitus complication detail: diabetic polyneuropathy Qualified Code(s): E11.42 - Type 2 diabetes mellitus with diabetic polyneuropathy Category: Medical Code(s): E11.40 - Type 2 diabetes mellitus with diabetic neuropathy, unspecified (9) Diabetic ulcer of left foot associated with diabetes mellitus due to underlying condition, limited to breakdown of skin: Status: Acute Qualifiers: Diabetic foot ulcer location: toe Qualified Code(s): E08.621 - Diabetes mellitus due to underlying condition with foot ulcer Category: Medical Code(s): E08.621 - Diabetes mellitus due to underlying condition with foot ulcer; L97.521 - Non-pressure chronic ulcer of other part of left foot limited to breakdown of skin (10) Hyperglycemia due to type 2 diabetes mellitus: Status: Chronic Qualifiers: Diabetes mellitus terminal clerk insulin use: without terminal clerk use Qualified Code(s): E11.65 - Type 2 diabetes mellitus with hyperglycemia Category: Medical Code(s): E11.65 - Type 2 diabetes mellitus with hyperglycemia (11) Paroxysmal A-fib: Status: Resolved Category: Medical Code(s): I48.0 - Paroxysmal atrial fibrillation (12) Hyperlipidemia: Status: Acute Qualifiers: Hyperlipidemia type: mixed hyperlipidemia Qualified Code(s): E78.2 - Mixed hyperlipidemia Category: Medical Code(s): E78.5 - Hyperlipidemia, unspecified Plan 49-year-old man admitted for severe cellulitis involving the right lower quadrant groin and right upper thigh. Patient is morbidly obese and unable to fit in any scanner or operating table in the facility. Surgical evaluation was declined due to inability to operate. Other facilities have been contacted to accept patient however they are also limited by the patient's weight. At this time we cannot exclude necrotizing fasciitis, there is concern for severe infection but again we are limited by facility capabilities. Will continue empiric antibiotic treatment for cellulitis/abscess in right upper thigh. Seen some mild improvement in systemic symptoms and broad-spectrum antibiotics. Advancing diet. Continue to address diabetes. Continues to require inpatient management. Initial presentation meeting sepsis criteria. Showing some slight defervescence today. Prognosis guarded. Problems addressed as follows: Severe cellulitis of abdomen groin and lower extremity Sepsis Suspected right upper thigh abscess - red man syndrome with vancomycin - Continue broad-spectrum antibiotics with clindamycin 900 mg IV every 8hrs, Linezolid 600 mg IV every 12, Zyvox 3.375 g every 8 hours - Blood cultures remain negative at 24 hours. - Formal ultrasound of right upper thigh shows edema and concern for phlegmon. Discussed possible bedside I&D with surgery, recommend that if he needs formal I&D, needs transfer to higher level of care. Will continue to monitor for improvement with antibiotics. If infection stops showing improvement neces sitating surgical intervention, we will reach out to tertiary centers again for transfer and intervention - White count stable at 7.1. Hemoglobin 11. CRP elevated at 357 - Repeat CBC, CMP, magnesium and inflammatory markers ordered for the morning. -Wound care evaluated feet. Appear to be showing signs of healing. No need for debridement at this time. - Podiatry will evaluate on Thursday if patient still admitted Hyperlipidemia Hypertension Paroxysmal A-fib - Continue Lipitor 40 mg nightly for hyperlipidemia - Continue bisoprolol 5 mg twice daily and diltiazem 120 mg daily for paroxysmal A-fib and hypertension - Continue Xarelto 20 mg daily Continue Vraylar 3 mg daily and Effexor 150 mg daily for mood disorder Continue trazodone 100 mg nightly for sleep Continue gabapentin 600 mg 3 times a day for diabetic neuropathy Poorly controlled diabetes: A1c elevated at 10. Increase glargine to 40 units tonight. Has previously been on Ozempic. States he getting constipation. Discussed resuming with aggressive bowel regimen. Patient open to considering this. Would benefit his weight loss as well. Morning glucose 244. Continue high intensity sliding scale insulin with your sticks ACHS and additional 10 units with meals on top of sliding scale Volume overload Peripheral edema - Aggressive diuresis with Bumex 2 mg twice daily for edema and volume overload. -7 L since admission - Continue spironolactone 50 mg daily - Kidney function remains normal with BUN 13, creatinine 0.7. Potassium 3.0, magnesium 1.5. Replacing per protocol today. Continue Reglan 10 mg 4 times a day with meals and at bedtime for diabetic gastroparesis Urinary incontinence: Continue Barber for incontinence as well as strict monitoring of fluid output during diuresis Full code Diabetic diet
[2024-12-09] MEDS: TRAZODONE 50MG TABLET 100 MG PO (20:40)
[2024-12-09] MEDS: ATORVASTATIN 40MG TABLET 40 MG PO (20:40)
[2024-12-09 21:15] LABS: POC Glucose,Bedside 326 (70-110)
--- NOTE | 2024-12-09 21:16 | PC.WOUNDNOTE ---
CHANGE IN AFFECTED AREA: Pictured is the progress of the affected right upper thigh/groin area. Upon assessment this shift, the undefined border of redness and swelling is now noticed to be down the entire right lower extremity, compared to previous assessments (see previous Nursing Wound Note on 12/08/24 at 02:28). A strong, purulent odor is present. Skin remains [id number]. Patient stated that his pain level (severe) within this area has remained the same and has not appeared to have improved during this hospitalization without taking pain medication. However, he also reported that the right groin pain does subside when reclining up to chair, with/without pain medication administration. Pain relief has been provided with [place] tablets accordingly per SEP. Skin around the open black area in the middle of the raised, red area is starting to slough; it is also draining of mustard-yellow fluid. This area was not covered with a dressing since the previous shift. A new, clean towel was provided to soak up the drainage as an attempt to keep the area as dry as possible.
[2024-12-09] MEDS: INSULIN GLARGINE 100 UNITS/ML 3ML FLEXPEN 40 UNIT SUBCUT (21:40)
--- NOTE | 2024-12-09 23:53 | PC.NURSE ---
Entry for 22:39: K Low DIANA was made aware and directly assessed the patient's worsening wound to his right upper/groin area.
[2024-12-10] MEDS: HYDROCODONE 10MG/APAP 325MG TAB 1 TAB PO ×3 (01:00→16:53)
[2024-12-10] MEDS: CLINDAMYCIN PHOSPHATE/D5W 900 MG/50 ML PIGGYBACK 100 MG IV ×3 (01:51→16:29)
--- NOTE | 2024-12-10 01:55 | EXP.EVENT.NO ---
The nurse caring for Mr. Gonzalo Russell, has photograph the area of the wound to the right thigh. She notes that it is getting worse at this time., Patient's condition is unchanged presently
[2024-12-10] MEDS: PIPERACILLIN/TAZO 3.375 GM in 0.9 % SODIUM CHLORIDE 50 ML IV ×4 (02:35→20:59)
[2024-12-10 04:00] VITALS: BP 133/72; PULSE 71; RESP 16; TEMP 36.6; O2SAT 92; BMI 75.8
[2024-12-10 05:30] LABS: POC Glucose,Bedside 221 (70-110)
[2024-12-10 06:23] LABS: Basophils % 0.3 % (0.1-2.0); Eosinophils # 0.1 Kmm3 (0.0-0.4); Immature Granulocytes # 0.06 10^3uL; Lymphocytes # 0.5 K/mm3 (0.7-4.5); Lymphocytes % 8.4 % (10-50); Mean Corpuscular HGB Conc 31.4 g/dL (31.8-35.4); Mean Corpuscular Hemoglobin 25.5 pg (27.0-31.2); Mean Corpuscular Volume 81.2 fl (80-94); Mean Platelet Volume 10.5 fl (7.4-10.4); Monocytes # 0.5 K/mm3 (0.1-1.0); Monocytes % 8.6 % (1.7-9.3); Neutrophils # 5.1 K/mm3 (1.8-7.8); Neutrophils % 80.7 % (37.0-80.0); Nucleated Red Blood Cells # 0 10^3/uL; Nucleated Red Blood Cells % 0 %; Platelet Count 152 K/mm3 (142-424); Red Blood Count 4.31 M/mm3 (4.60-6.20); Red Cell Distribution Width 16.2 % (11.5-17.5); Red Cell Distribution Width-SD 48.1 fL; White Blood Count 6.3 K/mm3 (4.8-10.8)
[2024-12-10] MEDS: humaLOG 100 UNITS/ML 10ML VIAL (SSI) 10 UNIT SUBCUT ×4 (06:29→15:31)
[2024-12-10] MEDS: humaLOG 100 UNITS/ML 10ML VIAL (SSI) SUBCUT ×4 (06:30→21:08)
[2024-12-10 06:32] LABS: MANUAL DIFFERENTIAL MANUAL DIFFERENTIAL (MANUAL DIFF)
[2024-12-10 06:37] LABS: Alanine Aminotransferase 17 U/L (12-78); Albumin Level 3.1 g/dl (3.5-5.0); Albumin/Globulin Ratio 0.9 (1.1-1.8); Alkaline Phosphatase 89 U/L (38-126); Anion Gap 8.1 mEq/L (5-15); Aspartate Amino Transferase 23 U/L (17-59); Bilirubin,Total 1.3 mg/dl (0.2-1.3); Blood Urea Nitrogen 11 mg/dl (9-20); Carbon Dioxide 35 mmol/L (22.0-30.0); Chloride 89 mmol/L (98-107); Creatinine Clearance Estimated 143 mL/min (50-200); Estimated Glomerular Filt Rate 121 ml/min (>60); GFR (African American) 146 ML/MIN (>60); Globulin 3.5 g/dL (1.3-3.2); Glucose 284 mg/dl (74-100); Potassium 3.1 mmoL/L (3.5-5.1); Sodium 129 mmol/L (136-145); Total Protein,Serum 6.6 g/dl (6.3-8.2)
[2024-12-10 06:48] LABS: Magnesium 1.8 mg/dl (1.6-2.3)
[2024-12-10 06:58] LABS: C-Reactive Protein 345.7 mg/L (0-4)
[2024-12-10 07:04] LABS: Procalcitonin 1.29 ng/mL (0.0-2.0)
[2024-12-10 07:39] LABS: Erythrocyte Sedimentation Rate 87 mm/hr (0-15)
[2024-12-10 08:00] VITALS: BP 145/97; PULSE 95; RESP 17; TEMP 36.7; O2SAT 96; BMI 75.9
[2024-12-10 08:01] LABS: Lymphocytes % 12 % (10-50); Monocytes % 5 % (2-9); Neutrophils % 83 % (42-76); Platelet Estimate Normal; RBC Morphology Normal; Total Cells Counted 100
[2024-12-10] MEDS: BISOPROLOL 5MG TABLET 5 MG PO ×2 (08:42→20:55)
[2024-12-10] MEDS: SPIRONOLACTONE 25MG TABLET 50 MG PO (08:42)
[2024-12-10] MEDS: GABAPENTIN 600MG TABLET 600 MG PO ×3 (08:42→20:55)
[2024-12-10] MEDS: VENLAFAXINE XR 75MG CAPSULE 150 MG PO (08:42)
[2024-12-10] MEDS: METOCLOPRAMIDE 10MG TABLET 10 MG PO ×4 (08:43→20:55)
[2024-12-10] MEDS: BUMETANIDE 1MG/4ML VIAL 2 MG IV ×2 (08:43→15:07)
[2024-12-10] MEDS: PANTOPRAZOLE 40MG TABLET 40 MG PO ×2 (08:43→20:55)
[2024-12-10] MEDS: dilTIAZem ER 120MG CAPSULE 120 MG PO (08:43)
[2024-12-10] MEDS: ENOXAPARIN 60MG/0.6ML SYRINGE 60 MG SUBCUT (08:43)
[2024-12-10] MEDS: LINEZOLID 600 MG/300 ML IV.SOLN 300 MG IV ×2 (08:44→19:32)
[2024-12-10] MEDS: VRAYLAR 3 MG 1 EACH PO (09:04)
--- NOTE | 2024-12-10 09:22 | EXP.DC.SUM ---
General Admission date:: 12/07/24 Discharge date: 12/10/24 HPI HPI HPI: Patient is a 49-year-old diabetic male with morbid obesity with BMI of 77, with history of chronic atrial fibrillation, obstructive sleep apnea, diabetes with numerous sequelae, lymphedema, congestive heart failure, hypertension, hyperlipidemia, degenerative disc disease, COPD. He is on Xarelto he presented to the emergency department in the afternoon/evening of 12/07/2024 with findings of soft tissue infection of the right groin and thigh area. He states that several days prior he had noticed some discomfort and described it as feeling raw . Over the next several days prior to presentation to the emergency department he had some increased swelling, redness, and heat extending from his groin and abdomen area onto the thigh. He then developed some significant fevers, chills, and myalgias. He underwent thorough ER evaluation. He was noted to be tachypneic, tachycardic, and febrile. There were findings consistent with an appreciable right lower extremity soft tissue infection. Given the limitations of the CT scanner secondary to the patient's body habitus he was unable to undergo CT imaging. He underwent [id number] ultrasound in the emergency department. He was found to have a bilirubin of 2, C-reactive protein 262.4, procalcitonin 0.427. His INR is 1.37. Multiple facilities were called and patient was unable to be transferred. Discussion was held with the surgeon on-call at this facility, Dr. Albright, and it was explained that even if the patient could forego imaging and there was a high clinical suspicion for a soft tissue infection necessitating surgical intervention the patient was a prohibitive risk and unable to be technically operated on at this facility and recommendations were for immediate transfer as he exceeds the operating room weight capacity, capabilities, and resources at this facility. Subsequently numerous facilities were contacted and patient was unable to be transferred. Ultimately the ER provider had discussion with the PAINTER ORDNANCE at this facility and patient was admitted with plan for possible imaging and transfer if indicated. Hospital Course Hospital Course Hospital Course: 49-year-old man admitted for severe cellulitis involving the right lower quadrant groin and right upper thigh. Patient is morbidly obese and unable to fit in any scanner or operating table in the facility. Surgical evaluation was declined due to inability to operate. Other facilities have been contacted to accept patient however they are also limited by the patient's weight. At this time we cannot exclude necrotizing fasciitis, there is concern for severe infection but again we are limited by facility capabilities. Initiated on empiric antibiotics for cellulitis and abscess. Wound involved developing necrotic surface. [facility] contacted again and graciously accepted patient for further management including debridement. Remained hemodynamically stable. Afebrile at this time but inflammatory markers remain elevated. Problems addressed as follows: Severe cellulitis of abdomen groin and lower extremity Sepsis Right upper thigh abscess - red man syndrome with vancomycin in the ER. Initiated on broad-spectrum antibiotics with clindamycin 900 mg IV every 8hrs, Linezolid 600 mg IV every 12, Zosyn 3.375 g every 8 hours. White count remained normal during admission, 6.3 on day of transfer. Blood cultures obtained that remained negative at 48 hours[address] Unable to obtain CT however obtain formal ultrasound of right upper thigh. Imaging showed edema and concern for phlegmon. Suspect this is early abscess given evolution of wound the following morning with overlying necrotic change. Given patient's BMI, weight, limitations of our surgical suite and anesthesia team, patient is outside of our capability to perform I&D safely. Discussed case with [facility], accepted for further management. - CRP elevated at 345 and Pro-Steven of 1.29 on morning of 12/10. - Of note has ongoing diabetic wounds of his feet. Wound care evaluated and dressing wounds with dry dressing daily. Appear to be healing compared to previous noted wounds on his feet. Of note, patient's standing weight was 561lbs standing on morning of 12/10 and girth measured at 77 inches while standing with tape measure Hyperlipidemia Hypertension Paroxysmal A-fib - Continue Lipitor 40 mg nightly for hyperlipidemia - Continue bisoprolol 5 mg twice daily and diltiazem 120 mg daily for paroxysmal A-fib and hypertension - Continue Xarelto 20 mg daily Continue Vraylar 3 mg daily and Effexor 150 mg daily for mood disorder Continue trazodone 100 mg nightly for sleep Continue gabapentin 600 mg 3 times a day for diabetic neuropathy Poorly controlled diabetes: A1c elevated at 10. Increase glargine to 40 units twice daily. Has previously been on Ozempic. States he was getting constipation. Discussed resuming with aggressive bowel regimen. Patient open to considering this. Would benefit his weight loss as well. Morning glucose 244. Continue high intensity sliding scale insulin with your sticks ACHS and additional 10 units with meals on top of sliding scale Volume overload Peripheral edema - Aggressive diuresis with Bumex 2 mg twice daily for edema and volume overload. -13 L since admission. Continue spironolactone 50 mg daily. Kidney function remains normal with BUN 11, creatinine 0.7. Potassium 3.1, magnesium 1.8. Continue Reglan 10 mg 4 times a day with meals and at bedtime for diabetic gastroparesis Urinary incontinence: Continue Barber for incontinence as well as strict monitoring of fluid output during diuresis. Barber placed at time of admission evening of 12/07 Morbid obesity complicates all aspects of his care. Previous gastric sleeve surgery. Recommend resuming GLP-1. Difficulty performing scans and procedures on patient due to his weight and size. Total time spent on discharge 42 minutes in counseling, documentation, chart review, and direct care with patient. Exam Data for Last 24 hours Vital signs and Labs for Last 24 Hours: Temp Pulse Resp BP Pulse Ox O2 Del Method 98.1 F 95 H 17 145/97 H 96 Room Air 12/10/24 08:00 12/10/24 08:00 12/10/24 08:00 12/10/24 08:00 12/10/24 08:00 12/10/24 09:00 Laboratory Results - last 24 hr 12/09/24 11:44: POC Glucose 233 H 12/09/24 16:07: POC Glucose 221 H 12/09/24 20:55: POC Glucose 326 H* 12/10/24 05:45: WBC 6.3, RBC 4.31 L, Hgb 11.0 L, Hct 35.0 L, MCV 81.2, MCH 25.5 L, MCHC 31.4 L, RDW 16.2, Plt Count 152, MPV 10.5 H, Neut % (Auto) 80.7 H, Lymph % (Auto) 8.4 L, [place] % (Auto) 8.6, Eos % (Auto) 1.0, Baso % (Auto) 0.3, Neut # (Auto) 5.1, Lymph # (Auto) 0.5 L, [place] # (Auto) 0.5, Eos # (Auto) 0.1, Baso # (Auto) 0.0, Total Counted 100, Neutrophils % (Manual) 83 H, Lymphocytes % (Manual) 12, Monocytes % (Manual) 5, Platelet Estimate Normal, RBC Morphology Normal, ESR 87 H, Sodium 129 L, Potassium 3.1 L, Chloride 89 L, Carbon Dioxide 35 H, Anion Gap 8.1, BUN 11, Creatinine 0.70, Estimated Creat Clear 143, Estimated GFR 121, Est GFR ( Amer) 146, Glucose 284 H, Calcium 8.0 L, Magnesium 1.8 D, Total Bilirubin 1.3, AST 23, ALT 17, Alkaline Phosphatase 89, C-Reactive Protein 345.7 H, Total Protein 6.6, Albumin 3.1 L, Globulin 3.5 H, Albumin/Globulin Ratio 0.9 L, Procalcitonin 1.29 I & O for Last 24 hours: Intake & Output 12/07/24 12/08/24 12/09/24 12/10/24 23:59 23:59 23:59 23:59 Intake Total 740 / 1800 2340 / 2680 340 / 340 Output Total 7800 / 8075 6925 / 6925 1800 / 1800 Balance -7060 / -6275 -4585 / -4245 -1460 / -1460 Weight 258.548 kg 254.783 kg 254 kg 254.465 kg Microbiology Reports for the Last 24 Hours: Microbiology 12/07/24 15:29 Blood Blood Culture - Preliminary NO GROWTH AFTER 48 HOURS 12/07/24 15:29 Blood Blood Culture - Preliminary NO GROWTH AFTER 48 HOURS Constitutional Constitutional: mild distress, morbidly obese, chronically ill appearing and cooperative *Routine HEENT Exam Head: Present normocephalic and cushingoid faces Eye: Present EOMI and PERRL ENT: Present mucous membranes moist *Routine Neck Exam Neck: Present supple; Absent lymphadenopathy *Routine Respiratory Exam Respiratory: Present CTA bilaterally and distant breath sounds; Absent rhonchi, wheezes or crackles *Routine Cardiovascular Exam Cardiovascular: Present irregularly irregular *Routine Abdominal Exam Abdominal: Present soft and normoactive bowel sounds; Absent tenderness *Routine Rectal Exam Patient deferred: visual exam *Routine Exam Comments: Barber in place, testicular exam normal. No pain around scrotum *Routine Extremities Exam Extremities: Present edema (Chronic stasis dermatitis and edema in lower extremities.); Absent cyanosis or clubbing Comments: Right upper thigh tender to palpation with necrotic appearing lesion that is evolved over the past few days. Sloughing epidermis. Approximately 1-1/2 x 3-1/2 cm right upper medial thigh lesion with necrosis of overlying dermis/epidermis. Presence of fluctuance under lesion; diabetic wounds on feet bilaterally. Clean-based. Dry dressings in place *Routine Skin Exam Skin: Present erythema (Right upper leg), warm and lesions (Right upper thigh, see extremity exam); Absent rash Comments: Chronic stasis dermatitis *Routine Neurological Exam Neurological: Present alert, oriented X3 and moving all extremities; Absent altered mental status Results Data Completed and Pending Labs on day of discharge: Labs from last 24 hours 12/10/24 12/09/24 12/09/24 05:45 20:55 16:07 WBC 6.3 RBC 4.31 L Hgb 11.0 L Hct 35.0 L MCV 81.2 MCH 25.5 L MCHC 31.4 L RDW 16.2 Plt Count 152 MPV 10.5 H Neut % (Auto) 80.7 H Lymph % (Auto) 8.4 L [place] % (Auto) 8.6 Eos % (Auto) 1.0 Baso % (Auto) 0.3 Neut # (Auto) 5.1 Lymph # (Auto) 0.5 L [place] # (Auto) 0.5 Eos # (Auto) 0.1 Baso # (Auto) 0.0 Total Counted 100 Neutrophils % (Manual) 83 H Lymphocytes % (Manual) 12 Monocytes % (Manual) 5 Platelet Estimate Normal RBC Morphology Normal ESR 87 H Sodium 129 L Potassium 3.1 L Chloride 89 L Carbon Dioxide 35 H Anion Gap 8.1 BUN 11 Creatinine 0.70 Estimated Creat Clear 143 Estimated GFR 121 Est GFR ( Amer) 146 Glucose 284 H POC Glucose 326 H* 221 H Calcium 8.0 L Magnesium 1.8 D Total Bilirubin 1.3 AST 23 ALT 17 Alkaline Phosphatase 89 C-Reactive Protein 345.7 H Total Protein 6.6 Albumin 3.1 L Globulin 3.5 H Albumin/Globulin Ratio 0.9 L Procalcitonin 1.29 12/09/24 11:44 WBC RBC Hgb Hct MCV MCH MCHC RDW Plt Count MPV Neut % (Auto) Lymph % (Auto) [place] % (Auto) Eos % (Auto) Baso % (Auto) Neut # (Auto) Lymph # (Auto) [place] # (Auto) Eos # (Auto) Baso # (Auto) Total Counted Neutrophils % (Manual) Lymphocytes % (Manual) Monocytes % (Manual) Platelet Estimate RBC Morphology ESR Sodium Potassium Chloride Carbon Dioxide Anion Gap BUN Creatinine Estimated Creat Clear Estimated GFR Est GFR ( Amer) Glucose POC Glucose 233 H Calcium Magnesium Total Bilirubin AST ALT Alkaline Phosphatase C-Reactive Protein Total Protein Albumin Globulin Albumin/Globulin Ratio Procalcitonin Preliminary micro results at discharge 12/07/24 15:29 Blood Culture - Preliminary Blood NO GROWTH AFTER 48 HOURS 12/07/24 15:29 Blood Culture - Preliminary Blood NO GROWTH AFTER 48 HOURS DS: Diagnosis Discharge Diagnosis (1) Sepsis without septic shock: Status: Acute Code(s): A41.9 - Sepsis, unspecified organism (2) Cellulitis of leg, right: Status: Acute Code(s): L03.115 - Cellulitis of right lower limb (3) Boil of lower extremity: Status: Acute Code(s): L02.429 - Furuncle of limb, unspecified (4) Volume overload: Status: Acute Code(s): E87.70 - Fluid overload, unspecified (5) Chronic a-fib: Status: Acute Code(s): I48.20 - Chronic atrial fibrillation, unspecified (6) QUINN (obstructive sleep apnea): Status: Chronic Code(s): G47.33 - Obstructive sleep apnea (adult) (pediatric) Problem details: Severe QUINN and nocturnal hypoxemia. He was unable to tolerate CPAP in the past and needed trial with BiPAP. He was offered an split-night with BiPAP titration but due to issues with transportation he requested a home sleep study. (7) Morbid obesity with BMI of 70 and over, adult: Status: Acute Code(s): E66.01 - Morbid (severe) obesity due to excess calories; Z68.45 - Body mass index [BMI] 70 or greater, adult (8) Diabetic neuropathy: Status: Acute Code(s): E11.40 - Type 2 diabetes mellitus with diabetic neuropathy, unspecified Qualifiers: Diabetes mellitus complication detail: diabetic polyneuropathy Diabetes mellitus type: type 2 Qualified Code(s): E11.42 - Type 2 diabetes mellitus with diabetic polyneuropathy (9) Diabetic ulcer of left foot associated with diabetes mellitus due to underlying condition, limited to breakdown of skin: Status: Acute Code(s): E08.621 - Diabetes mellitus due to underlying condition with foot ulcer; L97.521 - Non-pressure chronic ulcer of other part of left foot limited to breakdown of skin Qualifiers: Diabetic foot ulcer location: toe Qualified Code(s): E08.621 - Diabetes mellitus due to underlying condition with foot ulcer (10) Hyperglycemia due to type 2 diabetes mellitus: Status: Chronic Code(s): E11.65 - Type 2 diabetes mellitus with hyperglycemia Qualifiers: Diabetes mellitus [facility] insulin use: without [facility] use Qualified Code(s): E11.65 - Type 2 diabetes mellitus with hyperglycemia (11) Paroxysmal A-fib: Status: Resolved Code(s): I48.0 - Paroxysmal atrial fibrillation (12) Hyperlipidemia: Status: Acute Code(s): E78.5 - Hyperlipidemia, unspecified Qualifiers: Hyperlipidemia type: mixed hyperlipidemia Qualified Code(s): E78.2 - Mixed hyperlipidemia Meds Home Medications and Allergies Home Medications ?Medication ?Instructions ?Recorded ?Confirmed ?Type pen needle, diabetic 32 gauge x #100 ea 09/16/23 12/08/24 Rx 5/32 (Comfort EZ Pen [place]) insulin syringe-needle U-100 1 mL #10 ea 02/18/24 12/08/24 History 30 gauge x 1/2 (BD Insulin Syringe Ultra-Fine) metformin 1,000 mg tablet 1,000 mg PO BID 02/18/24 12/08/24 History metoclopramide HCl 10 mg tablet 10 mg PO QID 02/18/24 12/08/24 History rivaroxaban 20 mg tablet (Xarelto) 20 mg PO QPMWITHMEAL 02/18/24 12/08/24 History diltiazem HCl 120 mg 120 mg PO DAILY #90 caps 06/23/24 12/08/24 Rx capsule,extended release 24 hr cariprazine 3 mg capsule (Vraylar) 3 mg PO DAILY #90 caps 08/09/24 12/08/24 Rx atorvastatin 40 mg tablet 40 mg PO HS #90 tabs 08/22/24 12/08/24 Rx albuterol sulfate 90 mcg/actuation 2 puff inhalation Q4-6H PRN 09/27/24 12/08/24 Rx aerosol inhaler shortness of breath or wheezing #8.5 grams gabapentin 600 mg tablet 600 mg PO TID #90 tabs 09/27/24 12/08/24 Rx lorazepam 1 mg tablet 1 mg PO DAILYP PRN anxiety #15 tabs 09/27/24 12/08/24 Rx omeprazole 40 mg capsule,delayed 40 mg PO BID #90 caps 10/24/24 12/08/24 Rx release hydrocodone 10 mg-acetaminophen 1 tab PO TIDP PRN pain #90 tabs 11/23/24 12/08/24 Rx 325 mg tablet mupirocin 2 % topical ointment 1 applic topical BID infection 14 11/30/24 12/08/24 Rx days #22 grams bisoprolol fumarate 5 mg tablet 5 mg PO BID 12/08/24 12/08/24 History spironolactone 50 mg tablet 50 mg PO DAILY 12/08/24 12/08/24 History trazodone 100 mg tablet 100 mg PO HS 12/08/24 12/08/24 History venlafaxine 150 mg 150 mg PO DAILY 12/08/24 12/08/24 History capsule,extended release 24 hr semaglutide 0.25 mg or 0.5 mg (2 0.25 mg (0.368 mL) SQ WEEKLY #3 mL 12/09/24 Rx mg/3 mL) subcutaneous pen injector (Ozempic) acetaminophen 325 mg tablet 650 mg (2 x 325 mg) PO Q4HP PRN 12/10/24 Rx Fever Or Mild Pain (1-3) #0 tabs bumetanide 0.25 mg/mL injection 2 mg (8 mL) IV BIDL #0 mL 12/10/24 Rx solution clindamycin 900 mg/50 mL in 5 % 900 mg IV Q8H #0 mL 12/10/24 Rx dextrose intravenous piggyback insulin glargine 100 unit/mL (3 40 unit (0.4 mL) SQ BID #0 mL 12/10/24 Rx mL) subcutaneous pen (Lantus Solostar U-100 Insulin) insulin lispro 100 unit/mL 0 unit (0 mL) SQ ACHS #0 mL 12/10/24 Rx subcutaneous solution (Humalog U-100 Insulin) insulin lispro 100 unit/mL 10 unit (0.1 mL) SQ AC #0 mL 12/10/24 Rx subcutaneous solution (Humalog U-100 Insulin) linezolid in 5% dextrose in water 600 mg IV Q12H #0 mL 12/10/24 Rx 600 mg/300 mL intravenous piggyback (Zyvox) piperacillin-tazobactam 3.375 gram 3.375 g IV Q6H #0 ea 12/10/24 Rx intravenous solution New Prescriptions to Start Prescriptions: semaglutide [Ozempic] Sebastián Todd Allergies Allergy/AdvReac Type Severity Reaction Status Date / Time vancomycin AdvReac Severe Redness of Verified 12/08/24 12:58 Skin clindamycin AdvReac Mild Nausea Verified 12/08/24 12:58 doxycycline AdvReac Mild Upset Verified 12/08/24 12:58 stomach, heartbur Discharge Plan Disposition Patient Disposition: Xfer Short-Term Hosp Condition: Fair Follow up Plan Follow up with: Malcolm Hayward APRN [Primary Care Provider, Family Practice] - 12/14/24 1:40 pm Estefani Wallis DPM [Staff Physician, Podiatry] - 12/21/24 3:15 pm Prescriptions/Medication Reconciliation: New Ozempic 0.25 mg or 0.5 mg (2 mg/3 mL) pen injector 0.25 mg SQ WEEKLY Qty: 3 1RF Rx Instructions: for 4 weeks acetaminophen 325 mg Tablet 650 mg PO Q4HP PRN (Reason: Fever Or Mild Pain (1-3)) Qty: 0 0RF clindamycin in 5 % dextrose 900 mg/50 mL Piggyback 900 mg IV Q8H Qty: 0 0RF bumetanide 0.25 mg/mL Solution 2 mg IV BIDL Qty: 0 0RF insulin lispro [Humalog U-100 Insulin] 100 unit/mL Solution 10 unit SQ AC Qty: 0 0RF insulin lispro [Humalog U-100 Insulin] 100 unit/mL Solution 0 unit SQ ACHS Qty: 0 0RF insulin glargine [Lantus Solostar U-100 Insulin] 100 unit/mL (3 mL) Insulin Pen 40 unit SQ BID Qty: 0 0RF piperacillin-tazobactam 3.375 gram Recon Soln 3.375 g IV Q6H Qty: 0 0RF linezolid in dextrose 5% [Zyvox] 600 mg/300 mL Piggyback 600 mg IV Q12H Qty: 0 0RF Continued (DME) insulin syringe-needle U-100 [BD Insulin Syringe Ultra-Fine] 1 mL 30 gauge x 1/2 syringe See Rx Instructions .ROUTE .MEDSUPPLY Qty: 10 Rx Instructions: As directed (DME) pen needle, diabetic [Comfort EZ Pen [place]] 32 gauge x 5/32 needle See Rx Instructions .Route Qty: 100 0RF Rx Instructions: As directed diltiazem HCl 120 mg capsule,extended release 24hr 120 mg PO DAILY Qty: 90 3RF mupirocin 2 % ointment 1 applic topical BID 14 Days Qty: 22 1RF gabapentin 600 mg tablet 600 mg PO TID Qty: 90 2RF lorazepam 1 mg tablet 1 mg PO DAILYP PRN (Reason: anxiety) Qty: 15 2RF Rx Instructions: +++Monthly+++ albuterol sulfate 90 mcg/actuation HFA aerosol inhaler 2 puff inhalation Q4-6H PRN (Reason: shortness of breath or wheezing) Qty: 8.5 3RF Vraylar 3 mg capsule 3 mg PO DAILY Qty: 90 1RF atorvastatin 40 mg tablet 40 mg PO HS Qty: 90 1RF omeprazole 40 mg capsule,delayed release(DR/EC) 40 mg PO BID Qty: 90 0RF hydrocodone-acetaminophen 10-325 mg tablet 1 tab PO TIDP PRN (Reason: pain) Qty: 90 0RF metformin 1,000 mg tablet 1,000 mg PO BID metoclopramide HCl 10 mg tablet 10 mg PO QID Xarelto 20 mg tablet 20 mg PO QPMWITHMEAL venlafaxine 150 mg capsule,extended release 24hr 150 mg PO DAILY bisoprolol fumarate 5 mg tablet 5 mg PO BID Patient Comments: TAKE 1 TABLET BY MOUTH TWICE A DAY FOR BLOOD PRESSURE trazodone 100 mg tablet 100 mg PO HS Patient Comments: TAKE 1 TABLET AT BEDTIME spironolactone 50 mg tablet 50 mg PO DAILY Patient Comments: TAKE 1 TABLET BY MOUTH EVERY DAY Discontinued torsemide 20 mg tablet 40 mg PO DIRECTED PRN (Reason: edema) Qty: 180 3RF sulfamethoxazole-trimethoprim [Bactrim DS] 800-160 mg tablet 1 tab PO BID 14 Days Qty: 28 0RF Novolin 70/30 U-100 Insulin 100 unit/mL (70-30) suspension 0 unit SQ DIRECTED Rx Instructions: HAS PUMP PER PCP NOTES Problem Reconciliation Problems Reviewed?: Yes Patient Discharge Instructions ACTIVITY: Continue current activity DIET: NPO Stand Alone Forms: [facility] Work Release Patient Instructions: DI for Cellulitis -- Adult, High-Fiber Diet, Carbohydrate-Counting Diet, DI for Sepsis -- Adult, Catheter-Associated Urinary Tract Infection, Using Nutrition Labels: Carbohydrate Diet, Stop Light Infection Print Language: Ma[place] Providers Primary Care Provider: Malcolm Hayward Provider: Yehuda Martinez Attending Provider: Yehuda Martinez
[2024-12-10] MEDS: POTASSIUM CHLORIDE 20MEQ TAB 40 MEQ PO ×3 (09:56→16:28)
[2024-12-10 10:12] LABS: POC Glucose,Bedside 356 (70-110)
[2024-12-10] MEDS: INSULIN GLARGINE 100 UNITS/ML 3ML FLEXPEN 40 UNIT SUBCUT ×2 (11:03→21:09)
[2024-12-10 12:00] VITALS: BP 119/81; PULSE 76; RESP 16; TEMP 36.7; O2SAT 94
--- NOTE | 2024-12-10 13:07 | EXP.ACUTE.PN ---
Subjective *Date: 12/11/24 *Time: 16:03 Interval history: Wound evolving this morning. Patient remains afebrile and hemodynamically stable. Having more pain at site. Starting to have drainage and smell from wound. Tolerating p.o. intake. Significant urine output. Medical Exam Vital signs and Labs for Last 24 Hours: Vital Signs Temp Pulse Resp BP Pulse Ox O2 Del Method 12/11/24 11:05 Room Air 12/11/24 09:05 Room Air 12/11/24 08:20 Room Air 12/11/24 08:00 98 F 70 16 136/67 96 Room Air 12/11/24 07:00 Room Air 12/11/24 05:00 Room Air 12/11/24 04:00 98.0 F 80 14 121/70 96 12/11/24 03:00 Room Air 12/11/24 01:00 Room Air 12/11/24 00:00 98.6 F 70 18 128/67 100 12/10/24 23:00 Room Air 12/10/24 21:00 Room Air 12/10/24 20:00 100 Room Air 12/10/24 20:00 98.5 F 74 17 126/64 100 Room Air 12/10/24 18:10 Room Air 12/10/24 16:12 Room Air 12/10/24 16:00 98 F 74 16 126/64 96 Room Air 12/10/24 14:37 Room Air Intake and Output 12/10/24 12/11/24 12/11/24 23:59 07:59 15:59 Intake Total 360 / 2630 350 / 1110 760 / 1110 Output Total 2000 / 7900 1550 / 6150 4600 / 6150 Balance -1640 / -5270 -1200 / -5040 -3840 / -5040 Intake: Intake, Oral Amount 360 / 1680 360 / 360 Intake, Total IV Amount 350 / 750 400 / 750 Clindamycin Phosphate/D5w 900 50 / 50 mg In 50 ml @ 100 mls/hr IV Q8H [facility] Rx#:[id number] Linezolid 600 mg In 300 ml @ 300 / 600 300 / 600 300 mls/hr IV Q12H [facility] Rx#: [id number] Piperacillin/Tazo 3.375 gm In 0 50 / 100 50 / 100 .9 % Sodium Chloride 50 ml @ 100 mls/hr IV Q6H [facility] Rx#: [id number] Output: Output, Urine Amount 800 / 5000 1550 / 6150 4600 / 6150 Output, Urine Amount (Catheter) 1200 / 2900 Barber 1200 / 2900 Other: Number of Unmeasured Voids 0 0 0 Weight 254.465 kg 252.152 kg Patient Weight 12/11/24 23:59 Weight 252.152 kg Laboratory Results - last 24 hr 12/10/24 05:45: POC Glucose 272 H 12/10/24 15:12: POC Glucose 283 H 12/10/24 20:51: POC Glucose 239 H 12/11/24 06:05: Sodium 130 L, Potassium 3.3 L, Chloride 92 L, Carbon Dioxide 34 H, Anion Gap 7.3, BUN 10, Creatinine 0.60 L, Estimated Creat Clear 167, Estimated GFR 144, Est GFR ( Amer) 175, Glucose 287 H, Calcium 8.0 L, Total Bilirubin 0.9, AST 21, ALT 15, Alkaline Phosphatase 84, Total Protein 6.5, Albumin 3.0 L, Globulin 3.5 H, Albumin/Globulin Ratio 0.9 L 12/11/24 06:08: WBC 6.1, RBC 4.19 L, Hgb 10.8 L, Hct 34.1 L, MCV 81.4, MCH 25.8 L, MCHC 31.7 L, RDW 16.6, Plt Count 178, MPV 10.9 H, Neut % (Auto) 80.9 H, Lymph % (Auto) 8.2 L, [place] % (Auto) 8.5, Eos % (Auto) 1.0, Baso % (Auto) 0.3, Neut # (Auto) 4.9, Lymph # (Auto) 0.5 L, [place] # (Auto) 0.5, Eos # (Auto) 0.1, Baso # (Auto) 0.0, Magnesium 1.8 12/11/24 06:12: POC Glucose 271 H I & O for Labs for Last 24 Hours: Intake & Output 12/08/24 12/09/24 12/10/24 12/11/24 23:59 23:59 23:59 23:59 Intake Total 740 / 1800 2340 / 2680 2280 / 2630 1110 / 1110 Output Total 7800 / 8075 6925 / 6925 7700 / 7900 6150 / 6150 Balance -7060 / -6275 -4585 / -4245 -5420 / -5270 -5040 / -5040 Weight 254.783 kg 254 kg 254.465 kg 252.152 kg Constitutional: Present mild distress, morbidly obese, chronically ill appearing and cooperative Head: Present atraumatic and normocephalic ENT: Present normal exam Respiratory: Present distant breath sounds and normal respiratory effort; Absent rhonchi or wheezes Cardiac: Present Reg Rate and Rhythm GI: Present soft and normal bowel sounds; Absent distention or tenderness (male): Absent testicular tenderness Comment:: Barber in place. Retracted penis. No pain around scrotum or inguinal folds bilaterally. Extremities: Present tenderness (Right upper thigh where he has significant induration and erythema.) and edema (Dense woody chronic lymphedema with 2+ edema present to thighs) Skin: Present intact, erythema and warm (Right upper thigh hot to touch) Comment:: Chronic stasis changes bilateral lower extremities. Foot wounds.; Necrotic change of thigh wound. Has overlying necrotic eschar approximately 1-1/2 x 3.5 cm in size. Tender to palpation with fluctuance underneath Neuro: Present Grossly Intact, alert, awake, oriented x 3 and moves all extremities Assessment and Plan *Assessment and plan (1) Sepsis without septic shock: Status: Acute Category: Medical Code(s): A41.9 - Sepsis, unspecified organism (2) Cellulitis of leg, right: Status: Acute Category: Medical Code(s): L03.115 - Cellulitis of right lower limb (3) Boil of lower extremity: Status: Acute Category: Medical Code(s): L02.429 - Furuncle of limb, unspecified (4) Volume overload: Status: Acute Category: Medical Code(s): E87.70 - Fluid overload, unspecified (5) Chronic a-fib: Status: Acute Category: Medical Code(s): I48.20 - Chronic atrial fibrillation, unspecified (6) QUINN (obstructive sleep apnea): Problem Comment: Severe QUINN and nocturnal hypoxemia. He was unable to tolerate CPAP in the past and needed trial with BiPAP. He was offered an split-night with BiPAP titration but due to issues with transportation he requested a home sleep study. Status: Chronic Category: Medical Code(s): G47.33 - Obstructive sleep apnea (adult) (pediatric) (7) Morbid obesity with BMI of 70 and over, adult: Status: Acute Category: Medical Code(s): E66.01 - Morbid (severe) obesity due to excess calories; Z68.45 - Body mass index [BMI] 70 or greater, adult (8) Diabetic neuropathy: Status: Acute Qualifiers: Diabetes mellitus complication detail: diabetic polyneuropathy Diabetes mellitus type: type 2 Qualified Code(s): E11.42 - Type 2 diabetes mellitus with diabetic polyneuropathy Category: Medical Code(s): E11.40 - Type 2 diabetes mellitus with diabetic neuropathy, unspecified (9) Diabetic ulcer of left foot associated with diabetes mellitus due to underlying condition, limited to breakdown of skin: Status: Acute Qualifiers: Diabetic foot ulcer location: toe Qualified Code(s): E08.621 - Diabetes mellitus due to underlying condition with foot ulcer Category: Medical Code(s): E08.621 - Diabetes mellitus due to underlying condition with foot ulcer; L97.521 - Non-pressure chronic ulcer of other part of left foot limited to breakdown of skin (10) Hyperglycemia due to type 2 diabetes mellitus: Status: Chronic Qualifiers: Diabetes mellitus buttermaker continuous churn insulin use: without long-term use Qualified Code(s): E11.65 - Type 2 diabetes mellitus with hyperglycemia Category: Medical Code(s): E11.65 - Type 2 diabetes mellitus with hyperglycemia (11) Paroxysmal A-fib: Status: Resolved Category: Medical Code(s): I48.0 - Paroxysmal atrial fibrillation (12) Hyperlipidemia: Status: Acute Qualifiers: Hyperlipidemia type: mixed hyperlipidemia Qualified Code(s): E78.2 - Mixed hyperlipidemia Category: Medical Code(s): E78.5 - Hyperlipidemia, unspecified Plan 49-year-old man admitted for severe cellulitis involving the right lower quadrant groin and right upper thigh. Patient is morbidly obese and unable to fit in any scanner or operating table in the facility. Surgical evaluation was declined due to inability to operate. Other facilities have been contacted to accept patient however they are also limited by the patient's weight. At this time we cannot exclude necrotizing fasciitis, there is concern for severe infection but again we are limited by facility capabilities. Will continue empiric antibiotic treatment for cellulitis/abscess in right upper thigh. Seen some mild improvement in systemic symptoms and broad-spectrum antibiotics. Advancing diet. Continue to address diabetes. Continues to require inpatient management. Wound evolving, reached out to today. Excepted for transfer. Waiting on room. Problems addressed as follows: Severe cellulitis of abdomen groin and lower extremity Sepsis Suspected right upper thigh abscess - red man syndrome with vancomycin - Continue broad-spectrum antibiotics with clindamycin 900 mg IV every 8hrs, Linezolid 600 mg IV every 12, Zyvox 3.375 g every 8 hours - Blood cultures negative. - Formal ultrasound of right upper thigh shows edema and concern for phlegmon. Discussed possible bedside I&D with surgery, recommend that if he needs formal I&D, needs transfer to higher level of care. Will continue to monitor for improvement with antibiotics. If infection stops showing improvement necessitating surgical intervention, we will reach out to tertiary centers again for transfer and intervention -White count 6, CRP elevated at 345. - Repeat CBC, CMP, magnesium and inflammatory markers ordered for the morning. -Wound care evaluated feet. Appear to be showing signs of healing. No need for debridement at this time. - Podiatry will evaluate on Thursday if patient still admitted Hyperlipidemia Hypertension Paroxysmal A-fib - Continue Lipitor 40 mg nightly for hyperlipidemia - Continue bisoprolol 5 mg twice daily and diltiazem 120 mg daily for paroxysmal A-fib and hypertension - Continue Xarelto 20 mg daily Continue Vraylar 3 mg daily and Effexor 150 mg daily for mood disorder Continue trazodone 100 mg nightly for sleep Continue gabapentin 600 mg 3 times a day for diabetic neuropathy Poorly controlled diabetes: A1c elevated at 10. Increase glargine to 40 units twice daily - Has previously been on Ozempic. States he getting constipation. Discussed resuming with aggressive bowel regimen. Patient open to considering this. Would benefit his weight loss as well. - Morning glucose 272. Continue high intensity sliding scale insulin with your sticks ACHS and additional 10 units with meals on top of sliding scale Volume overload Peripheral edema - Aggressive diuresis with Bumex 2 mg twice daily for edema and volume overload. -15 L since admission - Continue spironolactone 50 mg daily - Kidney function remains normal with BUN 11, creatinine 0.7 Continue Reglan 10 mg 4 times a day with meals and at bedtime for diabetic gastroparesis Urinary incontinence: Continue Barber for incontinence as well as strict monitoring of fluid output during diuresis Full code Diabetic diet
[2024-12-10 15:19] LABS: POC Glucose,Bedside 283 (70-110)
--- NOTE | 2024-12-10 15:43 | PC.NURSE ---
Aox 4, up with assistance times one, on several abx iv, 20g L AC, 20g R AC, FSBG, F/C in place, lovenox for VTE, awaiting bed at or possibly [facility].
[2024-12-10 16:00] VITALS: BP 126/64; PULSE 74; RESP 16; TEMP 36.6; O2SAT 96
[2024-12-10] MEDS: RIVAROXABAN 10MG TABLET 20 MG PO ×2 (16:29→16:30)
[2024-12-10 20:00] VITALS: BP 126/64; PULSE 74; RESP 17; TEMP 36.9; O2SAT 100
[2024-12-10] MEDS: ATORVASTATIN 40MG TABLET 40 MG PO (20:55)
[2024-12-10] MEDS: TRAZODONE 50MG TABLET 100 MG PO (20:56)
[2024-12-10 22:25] LABS: POC Glucose,Bedside 239 (70-110)
[2024-12-11] VITALS: BP 128/67; PULSE 70; RESP 18; TEMP 37; O2SAT 100
--- NOTE | 2024-12-11 00:07 | PC.NURSE ---
[facility] called for an update on the patient.No beds available at this time. will call each shift for an update on the patient and available bed status on med/surg unit.
[2024-12-11] MEDS: CLINDAMYCIN PHOSPHATE/D5W 900 MG/50 ML PIGGYBACK 100 MG IV ×3 (01:39→16:24)
[2024-12-11] MEDS: PIPERACILLIN/TAZO 3.375 GM in 0.9 % SODIUM CHLORIDE 50 ML IV ×4 (02:28→21:57)
[2024-12-11 03:00] LABS: POC Glucose,Bedside 272 (70-110)
[2024-12-11 04:00] VITALS: BP 121/70; PULSE 80; RESP 14; TEMP 36.7; O2SAT 96; BMI 75.9
[2024-12-11] MEDS: HYDROCODONE 10MG/APAP 325MG TAB 1 TAB PO ×3 (05:12→21:22)
[2024-12-11 06:26] LABS: POC Glucose,Bedside 271 (70-110)
[2024-12-11] MEDS: humaLOG 100 UNITS/ML 10ML VIAL (SSI) 10 UNIT SUBCUT ×3 (06:50→16:24)
[2024-12-11] MEDS: humaLOG 100 UNITS/ML 10ML VIAL (SSI) SUBCUT ×4 (06:51→21:15)
[2024-12-11 07:26] LABS: Chloride 92 mmol/L (98-107); Sodium 130 mmol/L (136-145)
[2024-12-11 07:27] LABS: Potassium 3.3 mmoL/L (3.5-5.1)
[2024-12-11 07:29] LABS: Alanine Aminotransferase 15 U/L (12-78); Anion Gap 7.3 mEq/L (5-15); Aspartate Amino Transferase 21 U/L (17-59); Blood Urea Nitrogen 10 mg/dl (9-20); Carbon Dioxide 34 mmol/L (22.0-30.0); Creatinine Clearance Estimated 167 mL/min (50-200); Estimated Glomerular Filt Rate 144 ml/min (>60); GFR (African American) 175 ML/MIN (>60)
[2024-12-11 07:30] LABS: Albumin/Globulin Ratio 0.9 (1.1-1.8); Alkaline Phosphatase 84 U/L (38-126); Bilirubin,Total 0.9 mg/dl (0.2-1.3); Globulin 3.5 g/dL (1.3-3.2); Glucose 287 mg/dl (74-100); Total Protein,Serum 6.5 g/dl (6.3-8.2)
[2024-12-11 08:00] VITALS: BP 136/67; PULSE 70; RESP 16; TEMP 36.6; O2SAT 96
--- NOTE | 2024-12-11 08:36 | PC.NURSE ---
Pt. is alert and orientated x 4. Pt. on room air. Pt. up in bariatric recliner chair. c/o RLQ, right groin and upper right thigh redness and pain. area red, hot to touch. Babrer catheter in place. Pt awaiting a bed at . Pt. medicated for pain. Personal items and call escobar in reach.
[2024-12-11] MEDS: VRAYLAR 3 MG 1 EACH PO (08:46)
[2024-12-11] MEDS: LINEZOLID 600 MG/300 ML IV.SOLN 300 MG IV ×2 (08:46→19:47)
[2024-12-11] MEDS: INSULIN GLARGINE 100 UNITS/ML 3ML FLEXPEN 40 UNIT SUBCUT (08:47)
[2024-12-11] MEDS: METOCLOPRAMIDE 10MG TABLET 10 MG PO ×5 (08:47→21:17)
[2024-12-11] MEDS: PANTOPRAZOLE 40MG TABLET 40 MG PO ×2 (08:47→21:16)
[2024-12-11] MEDS: BISOPROLOL 5MG TABLET 5 MG PO ×2 (08:47→21:17)
[2024-12-11] MEDS: VENLAFAXINE XR 75MG CAPSULE 150 MG PO (08:48)
[2024-12-11] MEDS: SPIRONOLACTONE 25MG TABLET 50 MG PO (08:48)
[2024-12-11] MEDS: dilTIAZem ER 120MG CAPSULE 120 MG PO (08:48)
[2024-12-11] MEDS: BUMETANIDE 1MG/4ML VIAL 2 MG IV ×2 (08:49→14:59)
[2024-12-11] MEDS: GABAPENTIN 600MG TABLET 600 MG PO ×3 (08:55→21:16)
[2024-12-11 09:19] VITALS: BMI 75.2
[2024-12-11] MEDS: POTASSIUM CHLORIDE 20MEQ TAB 40 MEQ PO ×2 (10:25→13:42)
--- NOTE | 2024-12-11 11:02 | EXP.PHA.PN ---
Subjective *Date: 12/11/24 *Time: 11:02 Medical Exam Vital signs and Labs for Last 24 Hours: Vital Signs Temp Pulse Resp BP Pulse Ox O2 Del Method 12/11/24 09:05 Room Air 12/11/24 08:20 Room Air 12/11/24 08:00 98 F 70 16 136/67 96 Room Air 12/11/24 07:00 Room Air 12/11/24 05:00 Room Air 12/11/24 04:00 98.0 F 80 14 121/70 96 12/11/24 03:00 Room Air 12/11/24 01:00 Room Air 12/11/24 00:00 98.6 F 70 18 128/67 100 12/10/24 23:00 Room Air 12/10/24 21:00 Room Air 12/10/24 20:00 100 Room Air 12/10/24 20:00 98.5 F 74 17 126/64 100 Room Air 12/10/24 18:10 Room Air 12/10/24 16:12 Room Air 12/10/24 16:00 98 F 74 16 126/64 96 Room Air 12/10/24 14:37 Room Air 12/10/24 12:04 Room Air 12/10/24 12:00 98.1 F 76 16 119/81 94 L Intake and Output 12/10/24 12/11/24 12/11/24 23:59 07:59 15:59 Intake Total 360 / 2630 350 / 810 460 / 810 Output Total 2000 / 7900 1550 / 5150 3600 / 5150 Balance -1640 / -5270 -1200 / -4340 -3140 / -4340 Intake: Intake, Oral Amount 360 / 1680 360 / 360 Intake, Total IV Amount 350 / 450 100 / 450 Clindamycin Phosphate/D5w 900 50 / 50 mg In 50 ml @ 100 mls/hr IV Q8H [facility] Rx#:[id number] Linezolid 600 mg In 300 ml @ 300 / 300 300 mls/hr IV Q12H [facility] Rx#: [id number] Piperacillin/Tazo 3.375 gm In 0 50 / 100 50 / 100 .9 % Sodium Chloride 50 ml @ 100 mls/hr IV Q6H [facility] Rx#: [id number] Output: Output, Urine Amount 800 / 5000 1550 / 5150 3600 / 5150 Output, Urine Amount (Catheter) 1200 / 2900 Barber 1200 / 2900 Other: Number of Unmeasured Voids 0 0 0 Weight 254.465 kg 252.152 kg Patient Weight 12/11/24 23:59 Weight 252.152 kg Laboratory Results - last 24 hr 12/10/24 05:45: POC Glucose 272 H 12/10/24 15:12: POC Glucose 283 H 12/10/24 20:51: POC Glucose 239 H 12/11/24 06:05: Sodium 130 L, Potassium 3.3 L, Chloride 92 L, Carbon Dioxide 34 H, Anion Gap 7.3, BUN 10, Creatinine 0.60 L, Estimated Creat Clear 167, Estimated GFR 144, Est GFR ( Amer) 175, Glucose 287 H, Calcium 8.0 L, Total Bilirubin 0.9, AST 21, ALT 15, Alkaline Phosphatase 84, Total Protein 6.5, Albumin 3.0 L, Globulin 3.5 H, Albumin/Globulin Ratio 0.9 L 12/11/24 06:12: POC Glucose 271 H I & O for Labs for Last 24 Hours: Intake & Output 12/08/24 12/09/24 12/10/24 12/11/24 23:59 23:59 23:59 23:59 Intake Total 740 / 1800 2340 / 2680 2280 / 2630 810 / 810 Output Total 7800 / 8075 6925 / 6925 7700 / 7900 5150 / 5150 Balance -7060 / -6275 -4585 / -4245 -5420 / -5270 -4340 / -4340 Weight 254.783 kg 254 kg 254.465 kg 252.152 kg The patient's infection will respond to the chosen ABx?: Yes Is the patient receiving the right drug, dose, and route?: Yes Could a more targeted ABx be ordered?: No (WBC WNL, IMPROVED, WOUND SITE STILL RED.)
[2024-12-11 12:59] LABS: Basophils % 0.3 % (0.1-2.0); Eosinophils # 0.1 Kmm3 (0.0-0.4); Hematocrit 34.1 % (42.0-52.0); Hemoglobin 10.8 g/dL (14.1-18.0); Immature Granulocytes # 0.07 10^3uL; Immature Granulocytes % 1.1 %; Lymphocytes # 0.5 K/mm3 (0.7-4.5); Lymphocytes % 8.2 % (10-50); Mean Corpuscular HGB Conc 31.7 g/dL (31.8-35.4); Mean Corpuscular Hemoglobin 25.8 pg (27.0-31.2); Mean Corpuscular Volume 81.4 fl (80-94); Mean Platelet Volume 10.9 fl (7.4-10.4); Monocytes # 0.5 K/mm3 (0.1-1.0); Monocytes % 8.5 % (1.7-9.3); Neutrophils # 4.9 K/mm3 (1.8-7.8); Neutrophils % 80.9 % (37.0-80.0); Nucleated Red Blood Cells # 0 10^3/uL; Nucleated Red Blood Cells % 0 %; Platelet Count 178 K/mm3 (142-424); Red Blood Count 4.19 M/mm3 (4.60-6.20); Red Cell Distribution Width 16.6 % (11.5-17.5); Red Cell Distribution Width-SD 49.1 fL; White Blood Count 6.1 K/mm3 (4.8-10.8)
[2024-12-11 13:00] LABS: MANUAL DIFFERENTIAL MANUAL DIFFERENTIAL (MANUAL DIFF)
[2024-12-11 13:04] LABS: Magnesium 1.8 mg/dl (1.6-2.3)
[2024-12-11 13:09] LABS: C-Reactive Protein 266.5 mg/L (0-4)
[2024-12-11 13:50] LABS: POC Glucose,Bedside 302 (70-110)
[2024-12-11 13:56] LABS: Eosinophils % 1 % (0-3); Lymphocytes % 5 % (10-50); Monocytes % 8 % (2-9); Neutrophils % 86 % (42-76); Platelet Estimate Normal; RBC Morphology Normal; Total Cells Counted 100
--- NOTE | 2024-12-11 15:36 | PC.NURSE ---
VS stable and patient remained on room air. Patient up to chair for most of shift. Patient diuresed 4600 at this time, second dose of bumex given. Lung sounds clear. Dressing on right leg changed. Prn pain medication given and relief noted per pt.
--- NOTE | 2024-12-11 15:58 | EXP.ACUTE.PN ---
Subjective *Date: 12/11/24 *Time: 15:58 Interval history: Having pain at site of right groin. Started to have drainage from lesion in right groin. Remains afebrile. No nausea or vomiting. Diuresing well. -6 and half liters in the past 24 hours, -20 L since admission. Continues to await transfer Medical Exam Vital signs and Labs for Last 24 Hours: Vital Signs Temp Pulse Resp BP Pulse Ox O2 Del Method 12/11/24 15:00 Room Air 12/11/24 13:15 Room Air 12/11/24 11:05 Room Air 12/11/24 09:05 Room Air 12/11/24 08:20 Room Air 12/11/24 08:00 98 F 70 16 136/67 96 Room Air 12/11/24 07:00 Room Air 12/11/24 05:00 Room Air 12/11/24 04:00 98.0 F 80 14 121/70 96 12/11/24 03:00 Room Air 12/11/24 01:00 Room Air 12/11/24 00:00 98.6 F 70 18 128/67 100 12/10/24 23:00 Room Air 12/10/24 21:00 Room Air 12/10/24 20:00 100 Room Air 12/10/24 20:00 98.5 F 74 17 126/64 100 Room Air 12/10/24 18:10 Room Air 12/10/24 16:12 Room Air 12/10/24 16:00 98 F 74 16 126/64 96 Room Air Intake and Output 12/10/24 12/11/24 12/11/24 23:59 07:59 15:59 Intake Total 360 / 2630 350 / 1110 760 / 1110 Output Total 2000 / 7900 1550 / 7550 6000 / 7550 Balance -1640 / -5270 -1200 / -6440 -5240 / -6440 Intake: Intake, Oral Amount 360 / 1680 360 / 360 Intake, Total IV Amount 350 / 750 400 / 750 Clindamycin Phosphate/D5w 900 50 / 50 mg In 50 ml @ 100 mls/hr IV Q8H [facility] Rx#:[id number] Linezolid 600 mg In 300 ml @ 300 / 600 300 / 600 300 mls/hr IV Q12H [facility] Rx#: [id number] Piperacillin/Tazo 3.375 gm In 0 50 / 100 50 / 100 .9 % Sodium Chloride 50 ml @ 100 mls/hr IV Q6H [facility] Rx#: [id number] Output: Output, Urine Amount 800 / 5000 1550 / 7550 6000 / 7550 Output, Urine Amount (Catheter) 1200 / 2900 Barber 1200 / 2900 Other: Number of Unmeasured Voids 0 0 0 Weight 254.465 kg 252.152 kg Patient Weight 12/11/24 23:59 Weight 252.152 kg Laboratory Results - last 24 hr 12/10/24 05:45: POC Glucose 272 H 12/10/24 20:51: POC Glucose 239 H 12/11/24 06:05: Sodium 130 L, Potassium 3.3 L, Chloride 92 L, Carbon Dioxide 34 H, Anion Gap 7.3, BUN 10, Creatinine 0.60 L, Estimated Creat Clear 167, Estimated GFR 144, Est GFR ( Amer) 175, Glucose 287 H, Calcium 8.0 L, Total Bilirubin 0.9, AST 21, ALT 15, Alkaline Phosphatase 84, Total Protein 6.5, Albumin 3.0 L, Globulin 3.5 H, Albumin/Globulin Ratio 0.9 L 12/11/24 06:08: WBC 6.1, RBC 4.19 L, Hgb 10.8 L, Hct 34.1 L, MCV 81.4, MCH 25.8 L, MCHC 31.7 L, RDW 16.6, Plt Count 178, MPV 10.9 H, Neut % (Auto) 80.9 H, Lymph % (Auto) 8.2 L, [place] % (Auto) 8.5, Eos % (Auto) 1.0, Baso % (Auto) 0.3, Neut # (Auto) 4.9, Lymph # (Auto) 0.5 L, [place] # (Auto) 0.5, Eos # (Auto) 0.1, Baso # (Auto) 0.0, Total Counted 100, Neutrophils % (Manual) 86 H, Lymphocytes % (Manual) 5 L, Monocytes % (Manual) 8, Eosinophils % (Manual) 1, Platelet Estimate Normal, RBC Morphology Normal, Magnesium 1.8, C-Reactive Protein 266.5 H 12/11/24 06:12: POC Glucose 271 H 12/11/24 11:20: POC Glucose 302 H* I & O for Labs for Last 24 Hours: Intake & Output 12/08/24 12/09/24 12/10/24 12/11/24 23:59 23:59 23:59 23:59 Intake Total 740 / 1800 2340 / 2680 2280 / 2630 1110 / 1110 Output Total 7800 / 8075 6925 / 6925 7700 / 7900 7550 / 7550 Balance -7060 / -6275 -4585 / -4245 -5420 / -5270 -6440 / -6440 Weight 254.783 kg 254 kg 254.465 kg 252.152 kg Constitutional: Present mild distress, morbidly obese, chronically ill appearing and cooperative Head: Present atraumatic and normocephalic ENT: Present normal exam Respiratory: Present distant breath sounds and normal respiratory effort; Absent rhonchi or wheezes Cardiac: Present Reg Rate and Rhythm GI: Present soft and normal bowel sounds; Absent distention or tenderness (male): Absent testicular tenderness Comment:: Barber in place. Retracted penis. No pain around scrotum or inguinal folds bilaterally. Extremities: Present tenderness (Right upper thigh where he has significant induration and erythema.) and edema (Dense woody chronic lymphedema with 2+ edema present to thighs) Skin: Present intact, erythema, warm (Right upper thigh hot to touch) and wounds Comment:: Chronic stasis changes bilateral lower extremities. Foot wounds.; Necrotic change of thigh wound. Eschar has eroded, having purulent drainage from thigh lesion. utility tender carding to palpation. Neuro: Present Grossly Intact, alert, awake, oriented x 3 and moves all extremities Assessment and Plan *Assessment and plan (1) Sepsis without septic shock: Status: Acute Category: Medical Code(s): A41.9 - Sepsis, unspecified organism (2) Cellulitis of leg, right: Status: Acute Category: Medical Code(s): L03.115 - Cellulitis of right lower limb (3) Boil of lower extremity: Status: Acute Category: Medical Code(s): L02.429 - Furuncle of limb, unspecified (4) Volume overload: Status: Acute Category: Medical Code(s): E87.70 - Fluid overload, unspecified (5) Chronic a-fib: Status: Acute Category: Medical Code(s): I48.20 - Chronic atrial fibrillation, unspecified (6) QUINN (obstructive sleep apnea): Problem Comment: Severe QUINN and nocturnal hypoxemia. He was unable to tolerate CPAP in the past and needed trial with BiPAP. He was offered an split-night with BiPAP titration but due to issues with transportation he requested a home sleep study. Status: Chronic Category: Medical Code(s): G47.33 - Obstructive sleep apnea (adult) (pediatric) (7) Morbid obesity with BMI of 70 and over, adult: Status: Acute Category: Medical Code(s): E66.01 - Morbid (severe) obesity due to excess calories; Z68.45 - Body mass index [BMI] 70 or greater, adult (8) Diabetic neuropathy: Status: Acute Qualifiers: Diabetes mellitus type: type 2 Diabetes mellitus complication detail: diabetic polyneuropathy Qualified Code(s): E11.42 - Type 2 diabetes mellitus with diabetic polyneuropathy Category: Medical Code(s): E11.40 - Type 2 diabetes mellitus with diabetic neuropathy, unspecified (9) Diabetic ulcer of left foot associated with diabetes mellitus due to underlying condition, limited to breakdown of skin: Status: Acute Qualifiers: Diabetic foot ulcer location: toe Qualified Code(s): E08.621 - Diabetes mellitus due to underlying condition with foot ulcer Category: Medical Code(s): E08.621 - Diabetes mellitus due to underlying condition with foot ulcer; L97.521 - Non-pressure chronic ulcer of other part of left foot limited to breakdown of skin (10) Hyperglycemia due to type 2 diabetes mellitus: Status: Chronic Qualifiers: Diabetes mellitus supervisor functional testing insulin use: without supervisor functional testing use Qualified Code(s): E11.65 - Type 2 diabetes mellitus with hyperglycemia Category: Medical Code(s): E11.65 - Type 2 diabetes mellitus with hyperglycemia (11) Paroxysmal A-fib: Status: Resolved Category: Medical Code(s): I48.0 - Paroxysmal atrial fibrillation (12) Hyperlipidemia: Status: Acute Qualifiers: Hyperlipidemia type: mixed hyperlipidemia Qualified Code(s): E78.2 - Mixed hyperlipidemia Category: Medical Code(s): E78.5 - Hyperlipidemia, unspecified Plan 49-year-old man admitted for severe cellulitis involving the right lower quadrant groin and right upper thigh. Patient is morbidly obese and unable to fit in any scanner or operating table in the facility. Surgical evaluation was declined due to inability to operate. Other facilities have been contacted to accept patient however they are also limited by the patient's weight. At this time we cannot exclude necrotizing fasciitis, there is concern for severe infection but again we are limited by facility capabilities. Will continue empiric antibiotic treatment for cellulitis/abscess in right upper thigh. Systemically of her wound evolving. Now open and leaking purulent drainage. Continue to await bed availability at for transfer for definitive management. Problems addressed as follows: Severe cellulitis of abdomen groin and lower extremity Sepsis Right upper thigh abscess - red man syndrome with vancomycin - Continue broad-spectrum antibiotics with clindamycin 900 mg IV every 8hrs, Linezolid 600 mg IV every 12, Zyvox 3.375 g every 8 hours - Blood cultures negative - Formal ultrasound of right upper thigh shows edema and concern for phlegmon. Discussed possible bedside I&D with surgery, recommend that if he needs formal I&D, needs transfer to higher level of care. Will continue to monitor for improvement with antibiotics. If infection stops showing improvement necessitating surgical intervention, we will reach out to tertiary centers again for transfer and intervention - White count of 6.1, neutrophil predominant with over 80% neutrophils. Hemoglobin 10.8. Platelets 178. CRP down from 350 to 266 - Repeat CBC, CMP, magnesium and inflammatory markers ordered for the morning. -Wound care evaluated feet. Appear to be showing signs of healing. No need for debridement at this time. - Podiatry will evaluate on Thursday if patient still admitted Hyperlipidemia Hypertension Paroxysmal A-fib - Continue Lipitor 40 mg nightly for hyperlipidemia - Continue bisoprolol 5 mg twice daily and diltiazem 120 mg daily for paroxysmal A-fib and hypertension - Continue Xarelto 20 mg daily Continue Vraylar 3 mg daily and Effexor 150 mg daily for mood disorder Continue trazodone 100 mg nightly for sleep Continue gabapentin 600 mg 3 times a day for diabetic neuropathy Poorly controlled diabetes: A1c elevated at 10. Glargine increased to 55 units twice daily. - has previously been on Ozempic. States he getting constipation. Discussed resuming with aggressive bowel regimen. Patient open to considering this. Would benefit his weight loss as well. - Morning glucose 287. Continue high intensity sliding scale insulin with your sticks ACHS and additional 10 units with meals on top of sliding scale Volume overload Peripheral edema - Aggressive diuresis with Bumex 2 mg twice daily for edema and volume overload. -20 L since admission - Continue spironolactone 50 mg daily - Kidney function remains normal with BUN 10, creatinine 0.6, potassium 3.3, magnesium 1.8. Replacing per protocol today. Continue Reglan 10 mg 4 times a day with meals and at bedtime for diabetic gastroparesis Urinary incontinence: Continue Barber for incontinence as well as strict monitoring of fluid output during diuresis Full code Diabetic diet
[2024-12-11 16:00] VITALS: BP 116/59; PULSE 71; RESP 17; TEMP 36.4; O2SAT 96
[2024-12-11] MEDS: CALCIUM CARBONATE 500MG CHEWTAB 500 MG PO (16:24)
[2024-12-11 16:25] LABS: POC Glucose,Bedside 338 (70-110)
[2024-12-11 20:00] VITALS: BP 132/65; PULSE 69; RESP 14; TEMP 36.9; O2SAT 98
[2024-12-11 20:56] LABS: POC Glucose,Bedside 292 (70-110)
[2024-12-11] MEDS: INSULIN GLARGINE 100 UNITS/ML 3ML FLEXPEN 55 UNIT SUBCUT (21:13)
[2024-12-11] MEDS: ATORVASTATIN 40MG TABLET 40 MG PO (21:16)
[2024-12-11] MEDS: TRAZODONE 50MG TABLET 100 MG PO (21:17)
[2024-12-12] MEDS: CLINDAMYCIN PHOSPHATE/D5W 900 MG/50 ML PIGGYBACK 100 MG IV ×3 (00:41→17:11)
[2024-12-12] MEDS: PIPERACILLIN/TAZO 3.375 GM in 0.9 % SODIUM CHLORIDE 50 ML IV ×3 (02:57→16:19)
[2024-12-12 04:00] VITALS: BP 130/60; PULSE 62; RESP 15; TEMP 37; O2SAT 98; BMI 76.7
[2024-12-12] MEDS: HYDROCODONE 10MG/APAP 325MG TAB 1 TAB PO ×2 (05:18→13:45)
[2024-12-12] MEDS: humaLOG 100 UNITS/ML 10ML VIAL (SSI) 10 UNIT SUBCUT ×3 (05:36→17:11)
[2024-12-12] MEDS: humaLOG 100 UNITS/ML 10ML VIAL (SSI) SUBCUT ×3 (05:37→17:12)
[2024-12-12 06:00] LABS: POC Glucose,Bedside 318 (70-110)
--- NOTE | 2024-12-12 06:43 | PC.NURSE ---
Pt. is alert and orientated x 4. Pt. on room air. Pr. up in bareatric recliner chair. Pt. had large cellulitis to RLQ, Right groin, right upper thigh. Barber catheter in place. Pt. stood for weight last night.an open area in the groin oozed blood and purulent drainge. Pt getting Iv antibiotics , awaiting on a bed at . called for an update last night. NO beds available. Personal items and call bed in reach.
[2024-12-12 08:00] VITALS: BP 118/71; PULSE 63; RESP 19; TEMP 36.4; O2SAT 97
[2024-12-12 09:00] VITALS: BMI 75.0
[2024-12-12] MEDS: LINEZOLID 600 MG/300 ML IV.SOLN 300 MG IV (09:22)
[2024-12-12] MEDS: VRAYLAR 3 MG 1 EACH PO (09:22)
[2024-12-12] MEDS: BISOPROLOL 5MG TABLET 5 MG PO (09:23)
[2024-12-12] MEDS: METOCLOPRAMIDE 10MG TABLET 10 MG PO ×3 (09:23→16:19)
[2024-12-12] MEDS: SPIRONOLACTONE 25MG TABLET 50 MG PO (09:23)
[2024-12-12] MEDS: dilTIAZem ER 120MG CAPSULE 120 MG PO (09:23)
[2024-12-12] MEDS: PANTOPRAZOLE 40MG TABLET 40 MG PO (09:23)
[2024-12-12] MEDS: VENLAFAXINE XR 75MG CAPSULE 150 MG PO (09:24)
[2024-12-12] MEDS: BUMETANIDE 1MG/4ML VIAL 2 MG IV ×2 (09:24→16:19)
[2024-12-12] MEDS: GABAPENTIN 600MG TABLET 600 MG PO ×2 (09:26→13:45)
--- NOTE | 2024-12-12 09:35 | EXP.POD.CONS ---
History of Present Illness *Admission Date: 12/07/24 *History of present illness: Patient is a 49-year-old diabetic male with morbid obesity with BMI of 77, with history of chronic atrial fibrillation, obstructive sleep apnea, diabetes with numerous sequelae, lymphedema, congestive heart failure, hypertension, hyperlipidemia, degenerative disc disease, COPD. He is on Xarelto he presented to the emergency department in the afternoon/evening of 12/07/2024 with findings of soft tissue infection of the right groin and thigh area. He states that several days prior he had noticed some discomfort and described it as feeling raw . Over the next several days prior to presentation to the emergency department he had some increased swelling, redness, and heat extending from his groin and abdomen area onto the thigh. He then developed some significant fevers, chills, and myalgias. He underwent thorough ER evaluation. He was noted to be tachypneic, tachycardic, and febrile. There were findings consistent with an appreciable right lower extremity soft tissue infection. Given the limitations of the CT scanner secondary to the patient's body habitus he was unable to undergo CT imaging. He underwent [id number] ultrasound in the emergency department. He was found to have a bilirubin of 2, C-reactive protein 262.4, procalcitonin 0.427. His INR is 1.37. Multiple facilities were called and patient was unable to be transferred. Discussion was held with the surgeon on-call at this facility, Dr. Albright, and it was explained that even if the patient could forego imaging and there was a high clinical suspicion for a soft tissue infection necessitating surgical intervention the patient was a prohibitive risk and unable to be technically operated on at this facility and recommendations were for immediate transfer as he exceeds the operating room weight capacity, capabilities, and resources at this facility. Subsequently numerous facilities were contacted and patient was unable to be transferred. Ultimately the ER provider had discussion with the FIELD CHECKER at this facility and patient was admitted with plan for possible imaging and transfer if indicated. 12/12/24: Patient is a 49-year-old diabetic male with morbid obesity with BMI of 77, Podiatry patient that I have been seeing for his Diabetic foot ulcers and had last saw him in the office on 11/30/24. He has an ulcer to his left posterior heel that is small and healing well, the other is on his Right lateral foot, that is improving, granular wound base, no drainage. He is doing much better than when I am last in the office his lower extremities appears to be less edematous, erythema improving from the last time I saw him as well. She states he is waiting for a [facility] transfer. [facility] Disclaimer: The information contained in this section may have been updated after the patient was seen, as this information can be updated by other users. 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 Tachycardia Bilateral knee pain DDD (degenerative disc disease), lumbar Depression Morbid obesity with body mass index of 70 and over in adult CHF (congestive heart failure) COPD (chronic obstructive pulmonary disease) Diabetes Dyspnea BMI 60.0-69.9, adult Obesity Anxiety disorder Hypertension Diabetes type 2, uncontrolled Surgical History S/P gastric sleeve procedure History of gastric bypass Family History Father Cancer Other No significant family history Social History Smoking Status: Former smoker tobacco type: smokeless tobacco alcohol intake: former year quit: 2021 counseling given: Yes counseling provided: provider counseling substance use type: denies use current occupational status: unemployed and disabled Travel in the last 8 weeks?: None household members: spouse and children housing: house marital status: number of children: 1 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 current occupational exposures/hazards: No pets and animals: Yes pets and animals: cat(s) diet: other caffeine: Yes physical activity: none Review of Systems *Neurologic Neurologic: Reports system reviewed and no additional complaints, except as documented Meds Home Medications and Allergies Home Medications ?Medication ?Instructions ?Recorded ?Confirmed ?Type pen needle, diabetic 32 gauge x #100 ea 09/16/23 12/08/24 Rx 5/32 (Comfort EZ Pen [place]) insulin syringe-needle U-100 1 mL #10 ea 02/18/24 12/08/24 History 30 gauge x 1/2 (BD Insulin Syringe Ultra-Fine) metformin 1,000 mg tablet 1,000 mg PO BID 02/18/24 12/08/24 History metoclopramide HCl 10 mg tablet 10 mg PO QID 02/18/24 12/08/24 History rivaroxaban 20 mg tablet (Xarelto) 20 mg PO QPMWITHMEAL 02/18/24 12/08/24 History diltiazem HCl 120 mg 120 mg PO DAILY #90 caps 06/23/24 12/08/24 Rx capsule,extended release 24 hr cariprazine 3 mg capsule (Vraylar) 3 mg PO DAILY #90 caps 08/09/24 12/08/24 Rx atorvastatin 40 mg tablet 40 mg PO HS #90 tabs 08/22/24 12/08/24 Rx albuterol sulfate 90 mcg/actuation 2 puff inhalation Q4-6H PRN 09/27/24 12/08/24 Rx aerosol inhaler shortness of breath or wheezing #8.5 grams gabapentin 600 mg tablet 600 mg PO TID #90 tabs 09/27/24 12/08/24 Rx lorazepam 1 mg tablet 1 mg PO DAILYP PRN anxiety #15 tabs 09/27/24 12/08/24 Rx omeprazole 40 mg capsule,delayed 40 mg PO BID #90 caps 10/24/24 12/08/24 Rx release hydrocodone 10 mg-acetaminophen 1 tab PO TIDP PRN pain #90 tabs 11/23/24 12/08/24 Rx 325 mg tablet mupirocin 2 % topical ointment 1 applic topical BID infection 14 11/30/24 12/08/24 Rx days #22 grams bisoprolol fumarate 5 mg tablet 5 mg PO BID 12/08/24 12/08/24 History spironolactone 50 mg tablet 50 mg PO DAILY 12/08/24 12/08/24 History trazodone 100 mg tablet 100 mg PO HS 12/08/24 12/08/24 History venlafaxine 150 mg 150 mg PO DAILY 12/08/24 12/08/24 History capsule,extended release 24 hr semaglutide 0.25 mg or 0.5 mg (2 0.25 mg (0.368 mL) SQ WEEKLY #3 mL 12/09/24 Rx mg/3 mL) subcutaneous pen injector (Ozempic) acetaminophen 325 mg tablet 650 mg (2 x 325 mg) PO Q4HP PRN 12/10/24 Rx Fever Or Mild Pain (1-3) #0 tabs bumetanide 0.25 mg/mL injection 2 mg (8 mL) IV BIDL #0 mL 12/10/24 Rx solution clindamycin 900 mg/50 mL in 5 % 900 mg IV Q8H #0 mL 12/10/24 Rx dextrose intravenous piggyback insulin glargine 100 unit/mL (3 40 unit (0.4 mL) SQ BID #0 mL 12/10/24 Rx mL) subcutaneous pen (Lantus Solostar U-100 Insulin) insulin lispro 100 unit/mL 0 unit (0 mL) SQ ACHS #0 mL 12/10/24 Rx subcutaneous solution (Humalog U-100 Insulin) insulin lispro 100 unit/mL 10 unit (0.1 mL) SQ AC #0 mL 12/10/24 Rx subcutaneous solution (Humalog U-100 Insulin) linezolid in 5% dextrose in water 600 mg IV Q12H #0 mL 12/10/24 Rx 600 mg/300 mL intravenous piggyback (Zyvox) piperacillin-tazobactam 3.375 gram 3.375 g IV Q6H #0 ea 12/10/24 Rx intravenous solution New Prescriptions to Start Prescriptions: semaglutide [Ozempic] Sebastián Todd Allergies Allergy/AdvReac Type Severity Reaction Status Date / Time vancomycin AdvReac Severe Redness of Verified 12/08/24 12:58 Skin clindamycin AdvReac Mild Nausea Verified 12/08/24 12:58 doxycycline AdvReac Mild Upset Verified 12/08/24 12:58 stomach, heartbur Exam (Inpt) Vital signs and Labs for Last 24 Hours: Temp Pulse Resp BP Pulse Ox O2 Del Method 98.6 F 62 15 130/60 98 Room Air 12/12/24 04:00 12/12/24 04:00 12/12/24 04:00 12/12/24 04:00 12/12/24 04:00 12/12/24 07:00 Laboratory Results - last 24 hr 12/11/24 06:08: WBC 6.1, RBC 4.19 L, Hgb 10.8 L, Hct 34.1 L, MCV 81.4, MCH 25.8 L, MCHC 31.7 L, RDW 16.6, Plt Count 178, MPV 10.9 H, Neut % (Auto) 80.9 H, Lymph % (Auto) 8.2 L, Citrus % (Auto) 8.5, Eos % (Auto) 1.0, Baso % (Auto) 0.3, Neut # (Auto) 4.9, Lymph # (Auto) 0.5 L, Citrus # (Auto) 0.5, Eos # (Auto) 0.1, Baso # (Auto) 0.0, Total Counted 100, Neutrophils % (Manual) 86 H, Lymphocytes % (Manual) 5 L, Monocytes % (Manual) 8, Eosinophils % (Manual) 1, Platelet Estimate Normal, RBC Morphology Normal, Magnesium 1.8, C-Reactive Protein 266.5 H 12/11/24 11:20: POC Glucose 302 H* 12/11/24 16:16: POC Glucose 338 H* 12/11/24 20:46: POC Glucose 292 H 12/12/24 05:22: POC Glucose 318 H* I & O for Labs for Last 24 Hours: Intake & Output 12/09/24 12/10/24 12/11/24 12/12/24 23:59 23:59 23:59 23:59 Intake Total 2340 / 2340 2280 / 2280 3000 / 3000 350 / 350 Output Total 6925 / 6925 7700 / 7700 9850 / 9850 1475 / 1475 Balance -4585 / -4585 -5420 / -5420 -6850 / -6850 -1125 / -1125 Weight 559 lb 15.586 oz 561 lb 555 lb 14.4 oz 566 lb 6 oz Microbiology Reports for the Last 24 Hours: Microbiology 12/07/24 15:29 Blood Blood Culture - Preliminary NO GROWTH AFTER 4 DAYS 12/07/24 15:29 Blood Blood Culture - Preliminary NO GROWTH AFTER 4 DAYS Constitutional: Present no acute distress, obese and cooperative Head: Present normocephalic Eye: Present as per HPI Neck: Present trachea midline Respiratory: Present normal respiratory effort Cardiac: Present pedal pulses present Comment:: Present, difficult to palpate due to the pedal edema. Comments:: deferred (male): Present deferred Extremities: Present tenderness (b/l lower leg cellulitis/Lymphedema ), normal capillary refill and edema Skin: Present erythema, warm and wounds Comment:: Right lateral foot 4.1 x 4.0 x 0.1cm and Left posterior heel 1.5 x 1.5 x 0.1 cm DFU, All wounds and both feet cleaned with wound waste cotton cleaner prior to any debridement, wound Debrided with a 15' blade and curette to sharply, excisionally through skin into the subcu layer. Fibrotic tissue and macerated loose flap of skin was removed. Good bleeding was noted. Granular base was noted. Neuro: Present oriented x 3 Ankle: bilateral: erythema, bilateral: swelling and bilateral: tenderness (b/l lower legs and feet have 3+ pedal edema ) Feet/Toes: bilateral: erythema, bilateral: hammer toe, bilateral: nail abnormalities (Thick and long ), bilateral: swelling, bilateral: wound (Right lateral foot, Left posterior heel DFU ) and bilateral: decreased ROM Inspection: Present infection and ulceration Pulses: L dorsalis pedis pulse: diminished (Present but decreased due to edema ), R dorsalis pedis pulse: diminished, L posterior tibial pulse: diminished and R posterior tibial pulse: diminished CFT: dim: CFT Results Labs 12/12/24 09:38 12/12/24 09:38 Labs: Abnormal lab results 12/11/24 12/11/24 12/11/24 Range/Units 06:08 11:20 16:16 RBC 4.19 L (4.60-6.20) M/mm3 Hgb 10.8 L (14.1-18.0) g/dL Hct 34.1 L (42.0-52.0) % MCH 25.8 L (27.0-31.2) pg MCHC 31.7 L (31.8-35.4) g/dL MPV 10.9 H (7.4-10.4) fl Neut % (Auto) 80.9 H (37.0-80.0) % Lymph % (Auto) 8.2 L (10-50) % Lymph # (Auto) 0.5 L (0.7-4.5) K/mm3 Neutrophils % (Manual) 86 H (42-76) % Lymphocytes % (Manual) 5 L (10-50) % POC Glucose 302 H* 338 H* (70-110) C-Reactive Protein 266.5 H (0-4) mg/L 12/11/24 12/12/24 Range/Units 20:46 05:22 RBC (4.60-6.20) M/mm3 Hgb (14.1-18.0) g/dL Hct (42.0-52.0) % MCH (27.0-31.2) pg MCHC (31.8-35.4) g/dL MPV (7.4-10.4) fl Neut % (Auto) (37.0-80.0) % Lymph % (Auto) (10-50) % Lymph # (Auto) (0.7-4.5) K/mm3 Neutrophils % (Manual) (42-76) % Lymphocytes % (Manual) (10-50) % POC Glucose 292 H 318 H* (70-110) C-Reactive Protein (0-4) mg/L H & H 12/07/24 12/08/24 12/09/24 Range/Units 15:29 05:35 05:25 Hgb 12.9 L 11.7 L 11.0 L (14.1-18.0) g/dL Hct 40.7 L 37.5 L 34.5 L (42.0-52.0) % 12/10/24 12/11/24 Range/Units 05:45 06:08 Hgb 11.0 L 10.8 L (14.1-18.0) g/dL Hct 35.0 L 34.1 L (42.0-52.0) % Coagulation 12/07/24 Range/Units 15:29 INR 1.37 H (0.9-1.1) All other labs normal. Assessment and Plan *Assessment and plan (1) Morbid obesity with BMI of 70 and over, adult: Status: Acute Category: Medical Code(s): E66.01 - Morbid (severe) obesity due to excess calories; Z68.45 - Body mass index [BMI] 70 or greater, adult (2) Cellulitis of leg, right: Status: Acute Category: Medical Code(s): L03.115 - Cellulitis of right lower limb (3) Edema of both feet: Status: Acute Category: Medical Code(s): R60.0 - Localized edema (4) Acquired pes planus of left foot: Status: Acute Category: Medical Code(s): M21.42 - Flat foot [pes planus] (acquired), left foot (5) Arthritis of foot, degenerative: Status: Acute Qualifiers: Laterality: bilateral Osteoarthritis type: primary Qualified Code(s): M19.071 - Primary osteoarthritis, right ankle and foot; M19.072 - Primary osteoarthritis, left ankle and foot Category: Medical Code(s): M19.079 - Primary osteoarthritis, unspecified ankle and foot (6) Calcaneal spur of both feet: Status: Acute Category: Medical Code(s): M77.31 - Calcaneal spur, right foot; M77.32 - Calcaneal spur, left foot (7) Keratosis: Status: Acute Category: Medical Code(s): L57.0 - Actinic keratosis (8) Ulcer of right foot: Status: Acute Qualifiers: Non-pressure ulcer stage: with fat layer exposed Qualified Code(s): L97.512 - Non-pressure chronic ulcer of other part of right foot with fat layer exposed Category: Medical Code(s): L97.519 - Non-pressure chronic ulcer of other part of right foot with unspecified severity (9) Ulcer of left foot due to type 2 diabetes mellitus: Status: Acute Category: Medical Code(s): E11.621 - Type 2 diabetes mellitus with foot ulcer; L97.529 - Non-pressure chronic ulcer of other part of left foot with unspecified severity (10) Decreased pedal pulses: Status: Acute Category: Medical Code(s): R09.89 - Other specified symptoms and signs involving the circulatory and respiratory systems (11) Diabetic neuropathy: Status: Acute Qualifiers: Diabetes mellitus complication detail: diabetic polyneuropathy Diabetes mellitus type: type 2 Qualified Code(s): E11.42 - Type 2 diabetes mellitus with diabetic polyneuropathy Category: Medical Code(s): E11.40 - Type 2 diabetes mellitus with diabetic neuropathy, unspecified (12) Diabetic foot: Status: Acute Category: Medical Code(s): E11.8 - Type 2 diabetes mellitus with unspecified complications (13) Lymphedema of both lower extremities: Status: Acute Category: Medical Code(s): I89.0 - Lymphedema, not elsewhere classified (14) Onychodystrophy: Status: Acute Category: Medical Code(s): L60.3 - Nail dystrophy (15) Onychomycosis: Status: Acute Category: Medical Code(s): B35.1 - Tinea unguium (16) Cellulitis: Status: Acute Qualifiers: Laterality: left Site of cellulitis: extremity Site of cellulitis of extremity: toe Qualified Code(s): L03.032 - Cellulitis of left toe Category: Medical Code(s): L03.90 - Cellulitis, unspecified Plan 12/12/24: Reviewed labs: 12/12/24: WBC 5.8, ESR 108, glucose 291, CRP 174.1 (down from 266.5 on 12/11/24) Right lateral foot DFU, Left posterior heel DFU -Right lateral foot and Left posterior heel are improving since I last saw him in the office. -Ulcers were cleaned with wound waste cotton cleaner prior to debridement -See above skin section for measurements and details -Ulcer's was painted with betadine, betadine soaked gauze, kerlix, and coban. -Patient was made NPO for consult and since he is not surgical we can resume his diet. -Will continue to follow patient while inpatient, he is still waiting for transfer to . -Continue broad-spectrum antibiotics with clindamycin 900 mg IV every 8hrs, Linezolid 600 mg IV every 12, Zyvox 3.375 g every 8 hours per Hospitalist -All orders per Dr. Wallis
[2024-12-12] MEDS: INSULIN GLARGINE 100 UNITS/ML 3ML FLEXPEN 60 UNIT SUBCUT (09:38)
[2024-12-12 09:45] LABS: POC Glucose,Bedside 275 (70-110)
[2024-12-12 09:50] LABS: Basophils % 0.5 % (0.1-2.0); Eosinophils # 0.1 Kmm3 (0.0-0.4); Eosinophils % 1.2 % (0.1-12.0); Hematocrit 38.2 % (42.0-52.0); Immature Granulocytes # 0.09 10^3uL; Immature Granulocytes % 1.6 %; Lymphocytes # 0.6 K/mm3 (0.7-4.5); Lymphocytes % 10.6 % (10-50); Mean Corpuscular HGB Conc 31.4 g/dL (31.8-35.4); Mean Corpuscular Hemoglobin 25.8 pg (27.0-31.2); Mean Corpuscular Volume 82.2 fl (80-94); Mean Platelet Volume 10.1 fl (7.4-10.4); Monocytes # 0.5 K/mm3 (0.1-1.0); Monocytes % 8.8 % (1.7-9.3); Neutrophils # 4.5 K/mm3 (1.8-7.8); Neutrophils % 77.3 % (37.0-80.0); Nucleated Red Blood Cells # 0 10^3/uL; Nucleated Red Blood Cells % 0 %; Platelet Count 206 K/mm3 (142-424); Red Blood Count 4.65 M/mm3 (4.60-6.20); Red Cell Distribution Width 16.8 % (11.5-17.5); Red Cell Distribution Width-SD 49.7 fL; White Blood Count 5.8 K/mm3 (4.8-10.8)
[2024-12-12 10:02] LABS: Albumin Level 3.5 g/dl (3.5-5.0); Chloride 92 mmol/L (98-107); Potassium 3.4 mmoL/L (3.5-5.1); Sodium 134 mmol/L (136-145)
[2024-12-12 10:05] LABS: Alanine Aminotransferase 23 U/L (12-78); Albumin/Globulin Ratio 0.9 (1.1-1.8); Alkaline Phosphatase 98 U/L (38-126); Anion Gap 9.4 mEq/L (5-15); Aspartate Amino Transferase 30 U/L (17-59); Bilirubin,Total 0.8 mg/dl (0.2-1.3); Blood Urea Nitrogen 10 mg/dl (9-20); Calcium 8.9 mg/dl (8.4-10.2); Carbon Dioxide 36 mmol/L (22.0-30.0); Creatinine Clearance Estimated 143 mL/min (50-200); Estimated Glomerular Filt Rate 121 ml/min (>60); GFR (African American) 146 ML/MIN (>60); Globulin 4.1 g/dL (1.3-3.2); Glucose 291 mg/dl (74-100); Magnesium 1.9 mg/dl (1.6-2.3); Total Protein,Serum 7.6 g/dl (6.3-8.2)
[2024-12-12 10:12] LABS: C-Reactive Protein 174.1 mg/L (0-4)
[2024-12-12] MEDS: POTASSIUM CHLORIDE 20MEQ TAB 40 MEQ PO ×2 (10:50→13:46)
[2024-12-12 11:01] LABS: POC Glucose,Bedside 260 (70-110)
[2024-12-12 12:00] VITALS: BP 126/64; PULSE 61; RESP 19; TEMP 36.4; O2SAT 97
[2024-12-12 12:26] LABS: Erythrocyte Sedimentation Rate 108 mm/hr (0-15)
[2024-12-12 16:00] VITALS: BP 121/60; PULSE 68; RESP 18; TEMP 36.5; O2SAT 97
[2024-12-12 16:36] LABS: POC Glucose,Bedside 336 (70-110)
--- NOTE | 2024-12-12 17:12 | EXP.DC.SUM ---
General Admission date:: 12/07/24 Discharge date: 12/12/24 HPI HPI HPI: Patient is a 49-year-old diabetic male with morbid obesity with BMI of 77, with history of chronic atrial fibrillation, obstructive sleep apnea, diabetes with numerous sequelae, lymphedema, congestive heart failure, hypertension, hyperlipidemia, degenerative disc disease, COPD. He is on Xarelto he presented to the emergency department in the afternoon/evening of 12/07/2024 with findings of soft tissue infection of the right groin and thigh area. He states that several days prior he had noticed some discomfort and described it as feeling raw . Over the next several days prior to presentation to the emergency department he had some increased swelling, redness, and heat extending from his groin and abdomen area onto the thigh. He then developed some significant fevers, chills, and myalgias. He underwent thorough ER evaluation. He was noted to be tachypneic, tachycardic, and febrile. There were findings consistent with an appreciable right lower extremity soft tissue infection. Given the limitations of the CT scanner secondary to the patient's body habitus he was unable to undergo CT imaging. He underwent [id number] ultrasound in the emergency department. He was found to have a bilirubin of 2, C-reactive protein 262.4, procalcitonin 0.427. His INR is 1.37. Multiple facilities were called and patient was unable to be transferred. Discussion was held with the surgeon on-call at this facility, Dr. Albright, and it was explained that even if the patient could forego imaging and there was a high clinical suspicion for a soft tissue infection necessitating surgical intervention the patient was a prohibitive risk and unable to be technically operated on at this facility and recommendations were for immediate transfer as he exceeds the operating room weight capacity, capabilities, and resources at this facility. Subsequently numerous facilities were contacted and patient was unable to be transferred. Ultimately the ER provider had discussion with the IN PROCESS INSPECTOR at this facility and patient was admitted with plan for possible imaging and transfer if indicated. 12/12/24: Patient is a 49-year-old diabetic male with morbid obesity with BMI of 77, Podiatry patient that I have been seeing for his Diabetic foot ulcers and had last saw him in the office on 11/30/24. He has an ulcer to his left posterior heel that is small and healing well, the other is on his Right lateral foot, that is improving, granular wound base, no drainage. He is doing much better than when I am last in the office his lower extremities appears to be less edematous, erythema improving from the last time I saw him as well. She states he is waiting for a [facility] transfer. Hospital Course Hospital Course Hospital Course: 49-year-old man admitted for severe cellulitis involving the right lower quadrant groin and right upper thigh. Patient is morbidly obese and unable to fit in any scanner or operating table in the facility. Surgical evaluation was declined due to inability to operate. Other facilities have been contacted to accept patient however they are also limited by the patient's weight. At this time we cannot exclude necrotizing fasciitis, there is concern for severe infection but again we are limited by facility capabilities. Initiated on empiric antibiotics for cellulitis and abscess. Wound involved developing necrotic surface. Gradually opened and draining purulent material. graciously accepted patient for further management and surgical debridement due to limitations of our facility need for higher level of care. Patient is remained hemodynamically stable. Afebrile. On room air. Problems addressed as follows: Severe cellulitis of abdomen groin and lower extremity Sepsis Right upper thigh draining abscess - red man syndrome with vancomycin in the ER. Initiated on broad-spectrum antibiotics with clindamycin 900 mg IV every 8hrs, Linezolid 600 mg IV every 12, Zosyn 3.375 g every 8 hours. Has been on antibiotics since 12/07/2024. White count has remained stable during entire hospitalization. On day of discharge his white count is 5.8. Inflammatory markers were initially elevated at approximately 350 for CRP. It is dropped to 174 by day of discharge. Blood cultures remained negative. Unable to obtain CT however formal ultrasound obtained on 12/09 showed organizing phlegmon and cellulitis. Wound has since opened and is draining foul-smelling purulent material. Given patient's BMI, weight, limitations of our surgical suite and anesthesia team, complexity of airway due to his morbid obesity, patient is outside of our capability to perform I&D safely. Discussed case with , accepted for further management. - Of note has ongoing diabetic wounds of his feet. Wound care evaluated and dressing wounds with dry dressing daily. Appear to be healing compared to previous noted wounds on his feet. Of note, patient's standing weight was 550 lbs standing on morning of 6/2 and girth/circumference measured at 77 inches while standing with tape measure Hyperlipidemia Hypertension Paroxysmal A-fib - Continue Lipitor 40 mg nightly for hyperlipidemia - Continue bisoprolol 5 mg twice daily and diltiazem 120 mg daily for paroxysmal A-fib and hypertension - Initially on Xarelto 20 mg daily, held since 12/10 Continue Vraylar 3 mg daily and Effexor 150 mg daily for mood disorder Continue trazodone 100 mg nightly for sleep Continue gabapentin 600 mg 3 times a day for diabetic neuropathy Poorly controlled diabetes: A1c elevated at 10. Insulin glargine increased gradually to 60 units twice daily. Receiving high intensity sliding scale plus additional 10 units with meals. Has previously been on Ozempic. States he was getting constipation. Discussed resuming with aggressive bowel regimen. Patient open to considering this. Would benefit his weight loss as well. Glucoses remained between 200-300 during admission. Volume overload Peripheral edema - Aggressive diuresis with Bumex 2 mg twice daily for edema and volume overload. -25 L since admission. Barber in place due to retracted penis and difficulty with fluid management. Continue spironolactone 50 mg daily. Kidney function remains normal with BUN 10, creatinine 0.7. Potassium 3.4 magnesium 1 point 3.1, magnesium 1.9. Continue Reglan 10 mg 4 times a day with meals and at bedtime for diabetic gastroparesis Urinary incontinence: Continue Barber for incontinence as well as strict monitoring of fluid output during diuresis. Barber placed at time of admission evening of 12/07 Morbid obesity complicates all aspects of his care. Previous gastric sleeve surgery. Recommend resuming GLP-1. Difficulty performing scans and procedures on patient due to his weight and size. Of note, last meal was at noon on 12/12. Last clear liquids at 5:15pm on 12/12. Total time spent on discharge 42 minutes in counseling, documentation, chart review, and direct care with patient. Exam Data for Last 24 hours Vital signs and Labs for Last 24 Hours: Temp Pulse Resp BP Pulse Ox O2 Del Method 97.7 F 68 18 121/60 97 Room Air 12/12/24 16:00 12/12/24 16:00 12/12/24 16:00 12/12/24 16:00 12/12/24 16:00 12/12/24 16:00 Laboratory Results - last 24 hr 12/11/24 20:46: POC Glucose 292 H 12/12/24 05:22: POC Glucose 318 H* 12/12/24 09:35: POC Glucose 275 H 12/12/24 09:38: WBC 5.8, RBC 4.65, Hgb 12.0 L, Hct 38.2 L, MCV 82.2, MCH 25.8 L, MCHC 31.4 L, RDW 16.8, Plt Count 206, MPV 10.1, Neut % (Auto) 77.3, Lymph % (Auto) 10.6, [place] % (Auto) 8.8, Eos % (Auto) 1.2, Baso % (Auto) 0.5, Neut # (Auto) 4.5, Lymph # (Auto) 0.6 L, [place] # (Auto) 0.5, Eos # (Auto) 0.1, Baso # (Auto) 0.0, ESR 108 H, Sodium 134 L, Potassium 3.4 L, Chloride 92 L, Carbon Dioxide 36 H, Anion Gap 9.4, BUN 10, Creatinine 0.70, Estimated Creat Clear 143, Estimated GFR 121, Est GFR ( Amer) 146, Glucose 291 H, Calcium 8.9, Magnesium 1.9, Total Bilirubin 0.8, AST 30 D, ALT 23 D, Alkaline Phosphatase 98, C-Reactive Protein 174.1 H, Total Protein 7.6, Albumin 3.5 D, Globulin 4.1 H, Albumin/Globulin Ratio 0.9 L 12/12/24 10:54: POC Glucose 260 H 12/12/24 16:28: POC Glucose 336 H* I & O for Last 24 hours: Intake & Output 12/09/24 12/10/24 12/11/24 12/12/24 23:59 23:59 23:59 23:59 Intake Total 2340 / 2680 2280 / 2630 3000 / 3350 1430 / 1430 Output Total 6925 / 6925 7700 / 7900 9850 / 81507 4975 / 4975 Balance -4655 / -9102 -3931 / -2560 -8220 / -3939 -8755 / -4641 Weight 254 kg 254.465 kg 252.152 kg 251.432 kg Microbiology Reports for the Last 24 Hours: Microbiology 12/07/24 15:29 Blood Blood Culture - Preliminary NO GROWTH AFTER 4 DAYS 12/07/24 15:29 Blood Blood Culture - Preliminary NO GROWTH AFTER 4 DAYS Constitutional Constitutional: no acute distress, morbidly obese, chronically ill appearing and cooperative *Routine HEENT Exam Head: Present normocephalic and cushingoid faces Eye: Present EOMI and PERRL ENT: Present mucous membranes moist *Routine Neck Exam Neck: Present supple; Absent lymphadenopathy *Routine Respiratory Exam Respiratory: Present CTA bilaterally and distant breath sounds; Absent rhonchi, wheezes or crackles *Routine Cardiovascular Exam Cardiovascular: Present irregularly irregular *Routine Abdominal Exam Abdominal: Present soft and normoactive bowel sounds; Absent tenderness *Routine Rectal Exam Patient deferred: visual exam *Routine Exam Comments: Barber in place, testicular exam normal. No pain around scrotum *Routine Extremities Exam Extremities: Present edema (Chronic stasis dermatitis and edema in lower extremities. Drastically improved since admission. Noted wrinkling in the skin); Absent cyanosis or clubbing Comments: Right upper thigh with tenderness to palpation. Open wound draining purulent material. Erythema stable over the past few days. Foul smell for drainage; diabetic foot wounds bilaterally, healing with clean bandages *Routine Skin Exam Skin: Present erythema (Right upper leg), warm and lesions (Right upper thigh, see extremity exam); Absent rash Comments: Chronic stasis dermatitis *Routine Neurological Exam Neurological: Present alert, oriented X3 and moving all extremities; Absent altered mental status Results Data Completed and Pending Labs on day of discharge: Labs from last 24 hours 12/12/24 12/12/24 12/12/24 16:28 10:54 09:38 WBC 5.8 RBC 4.65 Hgb 12.0 L Hct 38.2 L MCV 82.2 MCH 25.8 L MCHC 31.4 L RDW 16.8 Plt Count 206 MPV 10.1 Neut % (Auto) 77.3 Lymph % (Auto) 10.6 [place] % (Auto) 8.8 Eos % (Auto) 1.2 Baso % (Auto) 0.5 Neut # (Auto) 4.5 Lymph # (Auto) 0.6 L [place] # (Auto) 0.5 Eos # (Auto) 0.1 Baso # (Auto) 0.0 ESR 108 H Sodium 134 L Potassium 3.4 L Chloride 92 L Carbon Dioxide 36 H Anion Gap 9.4 BUN 10 Creatinine 0.70 Estimated Creat Clear 143 Estimated GFR 121 Est GFR ( Amer) 146 Glucose 291 H POC Glucose 336 H* 260 H Calcium 8.9 Magnesium 1.9 Total Bilirubin 0.8 AST 30 D ALT 23 D Alkaline Phosphatase 98 C-Reactive Protein 174.1 H Total Protein 7.6 Albumin 3.5 D Globulin 4.1 H Albumin/Globulin Ratio 0.9 L 12/12/24 12/12/24 12/11/24 09:35 05:22 20:46 WBC RBC Hgb Hct MCV MCH MCHC RDW Plt Count MPV Neut % (Auto) Lymph % (Auto) [place] % (Auto) Eos % (Auto) Baso % (Auto) Neut # (Auto) Lymph # (Auto) [place] # (Auto) Eos # (Auto) Baso # (Auto) ESR Sodium Potassium Chloride Carbon Dioxide Anion Gap BUN Creatinine Estimated Creat Clear Estimated GFR Est GFR ( Amer) Glucose POC Glucose 275 H 318 H* 292 H Calcium Magnesium Total Bilirubin AST ALT Alkaline Phosphatase C-Reactive Protein Total Protein Albumin Globulin Albumin/Globulin Ratio Preliminary micro results at discharge 12/07/24 15:29 Blood Culture - Preliminary Blood NO GROWTH AFTER 4 DAYS 12/07/24 15:29 Blood Culture - Preliminary Blood NO GROWTH AFTER 4 DAYS DS: Diagnosis Discharge Diagnosis (1) Morbid obesity with BMI of 70 and over, adult: Status: Acute Code(s): E66.01 - Morbid (severe) obesity due to excess calories; Z68.45 - Body mass index [BMI] 70 or greater, adult (2) Cellulitis of leg, right: Status: Acute Code(s): L03.115 - Cellulitis of right lower limb (3) Edema of both feet: Status: Acute Code(s): R60.0 - Localized edema (4) Acquired pes planus of left foot: Status: Acute Code(s): M21.42 - Flat foot [pes planus] (acquired), left foot (5) Arthritis of foot, degenerative: Status: Acute Code(s): M19.079 - Primary osteoarthritis, unspecified ankle and foot Qualifiers: Laterality: bilateral Osteoarthritis type: primary Qualified Code(s): M19.071 - Primary osteoarthritis, right ankle and foot; M19.072 - Primary osteoarthritis, left ankle and foot (6) Calcaneal spur of both feet: Status: Acute Code(s): M77.31 - Calcaneal spur, right foot; M77.32 - Calcaneal spur, left foot (7) Keratosis: Status: Acute Code(s): L57.0 - Actinic keratosis (8) Ulcer of right foot: Status: Acute Code(s): L97.519 - Non-pressure chronic ulcer of other part of right foot with unspecified severity Qualifiers: Non-pressure ulcer stage: with fat layer exposed Qualified Code(s): L97.512 - Non-pressure chronic ulcer of other part of right foot with fat layer exposed (9) Ulcer of left foot due to type 2 diabetes mellitus: Status: Acute Code(s): E11.621 - Type 2 diabetes mellitus with foot ulcer; L97.529 - Non-pressure chronic ulcer of other part of left foot with unspecified severity (10) Decreased pedal pulses: Status: Acute Code(s): R09.89 - Other specified symptoms and signs involving the circulatory and respiratory systems (11) Diabetic neuropathy: Status: Acute Code(s): E11.40 - Type 2 diabetes mellitus with diabetic neuropathy, unspecified Qualifiers: Diabetes mellitus complication detail: diabetic polyneuropathy Diabetes mellitus type: type 2 Qualified Code(s): E11.42 - Type 2 diabetes mellitus with diabetic polyneuropathy (12) Diabetic foot: Status: Acute Code(s): E11.8 - Type 2 diabetes mellitus with unspecified complications (13) Lymphedema of both lower extremities: Status: Acute Code(s): I89.0 - Lymphedema, not elsewhere classified (14) Onychodystrophy: Status: Acute Code(s): L60.3 - Nail dystrophy (15) Onychomycosis: Status: Acute Code(s): B35.1 - Tinea unguium (16) Cellulitis: Status: Acute Code(s): L03.90 - Cellulitis, unspecified Qualifiers: Laterality: left Site of cellulitis: extremity Site of cellulitis of extremity: toe Qualified Code(s): L03.032 - Cellulitis of left toe Meds Home Medications and Allergies Home Medications ?Medication ?Instructions ?Recorded ?Confirmed ?Type pen needle, diabetic 32 gauge x #100 ea 09/16/23 12/08/24 Rx (Comfort EZ Pen [place]) insulin syringe-needle U-100 1 mL #10 ea 02/18/24 12/08/24 History 30 gauge x 1/2 (BD Insulin Syringe Ultra-Fine) metformin 1,000 mg tablet 1,000 mg PO BID 02/18/24 12/08/24 History metoclopramide HCl 10 mg tablet 10 mg PO QID 02/18/24 12/08/24 History rivaroxaban 20 mg tablet (Xarelto) 20 mg PO QPMWITHMEAL 02/18/24 12/08/24 History Held on 12/12/24. Instructions: pending surgery, resume after surgery diltiazem HCl 120 mg 120 mg PO DAILY #90 caps 06/23/24 12/08/24 Rx capsule,extended release 24 hr cariprazine 3 mg capsule (Vraylar) 3 mg PO DAILY #90 caps 08/09/24 12/08/24 Rx atorvastatin 40 mg tablet 40 mg PO HS #90 tabs 08/22/24 12/08/24 Rx albuterol sulfate 90 mcg/actuation 2 puff inhalation Q4-6H PRN 09/27/24 12/08/24 Rx aerosol inhaler shortness of breath or wheezing #8.5 grams gabapentin 600 mg tablet 600 mg PO TID #90 tabs 09/27/24 12/08/24 Rx lorazepam 1 mg tablet 1 mg PO DAILYP PRN anxiety #15 tabs 09/27/24 12/08/24 Rx omeprazole 40 mg capsule,delayed 40 mg PO BID #90 caps 10/24/24 12/08/24 Rx release hydrocodone 10 mg-acetaminophen 1 tab PO TIDP PRN pain #90 tabs 11/23/24 12/08/24 Rx 325 mg tablet mupirocin 2 % topical ointment 1 applic topical BID infection 14 11/30/24 12/08/24 Rx days #22 grams bisoprolol fumarate 5 mg tablet 5 mg PO BID 12/08/24 12/08/24 History spironolactone 50 mg tablet 50 mg PO DAILY 12/08/24 12/08/24 History trazodone 100 mg tablet 100 mg PO HS 12/08/24 12/08/24 History venlafaxine 150 mg 150 mg PO DAILY 12/08/24 12/08/24 History capsule,extended release 24 hr semaglutide 0.25 mg or 0.5 mg (2 0.25 mg (0.368 mL) SQ WEEKLY #3 mL 12/09/24 Rx mg/3 mL) subcutaneous pen injector (Ozempic) acetaminophen 325 mg tablet 650 mg (2 x 325 mg) PO Q4HP PRN 12/10/24 Rx Fever Or Mild Pain (1-3) #0 tabs bumetanide 0.25 mg/mL injection 2 mg (8 mL) IV BIDL #0 mL 12/10/24 Rx solution clindamycin 900 mg/50 mL in 5 % 900 mg IV Q8H #0 mL 12/10/24 Rx dextrose intravenous piggyback insulin lispro 100 unit/mL 0 unit (0 mL) SQ ACHS #0 mL 12/10/24 Rx subcutaneous solution (Humalog U-100 Insulin) insulin lispro 100 unit/mL 10 unit (0.1 mL) SQ AC #0 mL 12/10/24 Rx subcutaneous solution (Humalog U-100 Insulin) linezolid in 5% dextrose in water 600 mg IV Q12H #0 mL 12/10/24 Rx 600 mg/300 mL intravenous piggyback (Zyvox) piperacillin-tazobactam 3.375 gram 3.375 g IV Q6H #0 ea 12/10/24 Rx intravenous solution calcium carbonate (Tums) 500 mg (2.5 x 200 mg calcium (500 12/12/24 Rx mg)) PO QIDP PRN Heartburn #0 tabs insulin glargine 100 unit/mL (3 60 unit (0.6 mL) SQ BID #0 mL 12/12/24 Rx mL) subcutaneous pen (Lantus Solostar U-100 Insulin) New Prescriptions to Start Prescriptions: semaglutide [Ozempic] Sebastián Todd Allergies Allergy/AdvReac Type Severity Reaction Status Date / Time vancomycin AdvReac Severe Redness of Verified 12/08/24 12:58 Skin clindamycin AdvReac Mild Nausea Verified 12/08/24 12:58 doxycycline AdvReac Mild Upset Verified 12/08/24 12:58 stomach, heartbur Discharge Plan Disposition Patient Disposition: Xfer Short-Term Hosp Condition: Fair Discharge Order Discharge Orders: Discharge Order (Routine); Ordered 12/12/24 Ordered By: Sebastián Todd Follow up Plan Follow up with: Malcolm Hayward APRN [Primary Care Provider, Family Practice] - 12/14/24 1:40 pm Estefani Wallis DPM [Staff Physician, Podiatry] - 12/21/24 3:15 pm Prescriptions/Medication Reconciliation: New Ozempic 0.25 mg or 0.5 mg (2 mg/3 mL) pen injector 0.25 mg SQ WEEKLY Qty: 3 1RF Rx Instructions: for 4 weeks acetaminophen 325 mg Tablet 650 mg PO Q4HP PRN (Reason: Fever Or Mild Pain (1-3)) Qty: 0 0RF clindamycin in 5 % dextrose 900 mg/50 mL Piggyback 900 mg IV Q8H Qty: 0 0RF bumetanide 0.25 mg/mL Solution 2 mg IV BIDL Qty: 0 0RF insulin lispro [Humalog U-100 Insulin] 100 unit/mL Solution 10 unit SQ AC Qty: 0 0RF insulin lispro [Humalog U-100 Insulin] 100 unit/mL Solution 0 unit SQ ACHS Qty: 0 0RF piperacillin-tazobactam 3.375 gram Recon Soln 3.375 g IV Q6H Qty: 0 0RF linezolid in dextrose 5% [Zyvox] 600 mg/300 mL Piggyback 600 mg IV Q12H Qty: 0 0RF calcium carbonate [Tums] 200 mg calcium (500 mg) Tablet,Chewable 500 mg PO QIDP PRN (Reason: Heartburn) Qty: 0 0RF insulin glargine [Lantus Solostar U-100 Insulin] 100 unit/mL (3 mL) Insulin Pen 60 unit SQ BID Qty: 0 0RF Continued (DME) insulin syringe-needle U-100 [BD Insulin Syringe Ultra-Fine] 1 mL 30 gauge x 1/2 syringe See Rx Instructions .ROUTE .MEDSUPPLY Qty: 10 Rx Instructions: As directed (DME) pen needle, diabetic [Comfort EZ Pen [place]] 32 gauge x 5/32 needle See Rx Instructions .Route Qty: 100 0RF Rx Instructions: As directed diltiazem HCl 120 mg capsule,extended release 24hr 120 mg PO DAILY Qty: 90 3RF mupirocin 2 % ointment 1 applic topical BID 14 Days Qty: 22 1RF gabapentin 600 mg tablet 600 mg PO TID Qty: 90 2RF lorazepam 1 mg tablet 1 mg PO DAILYP PRN (Reason: anxiety) Qty: 15 2RF Rx Instructions: +++Monthly+++ albuterol sulfate 90 mcg/actuation HFA aerosol inhaler 2 puff inhalation Q4-6H PRN (Reason: shortness of breath or wheezing) Qty: 8.5 3RF Vraylar 3 mg capsule 3 mg PO DAILY Qty: 90 1RF atorvastatin 40 mg tablet 40 mg PO HS Qty: 90 1RF omeprazole 40 mg capsule,delayed release(DR/EC) 40 mg PO BID Qty: 90 0RF hydrocodone-acetaminophen 10-325 mg tablet 1 tab PO TIDP PRN (Reason: pain) Qty: 90 0RF metformin 1,000 mg tablet 1,000 mg PO BID metoclopramide HCl 10 mg tablet 10 mg PO QID venlafaxine 150 mg capsule,extended release 24hr 150 mg PO DAILY bisoprolol fumarate 5 mg tablet 5 mg PO BID Patient Comments: TAKE 1 TABLET BY MOUTH TWICE A DAY FOR BLOOD PRESSURE trazodone 100 mg tablet 100 mg PO HS Patient Comments: TAKE 1 TABLET AT BEDTIME spironolactone 50 mg tablet 50 mg PO DAILY Patient Comments: TAKE 1 TABLET BY MOUTH EVERY DAY Held Xarelto 20 mg tablet 20 mg PO QPMWITHMEAL Hold Instructions: pending surgery, resume after surgery Discontinued torsemide 20 mg tablet 40 mg PO DIRECTED PRN (Reason: edema) Qty: 180 3RF sulfamethoxazole-trimethoprim [Bactrim DS] 800-160 mg tablet 1 tab PO BID 14 Days Qty: 28 0RF Novolin 70/30 U-100 Insulin 100 unit/mL (70-30) suspension 0 unit SQ DIRECTED Rx Instructions: HAS PUMP PER PCP NOTES Problem Reconciliation Problems Reviewed?: Yes Patient Discharge Instructions ACTIVITY: Continue current activity DIET: NPO Stand Alone Forms: [facility] Work Release Patient Instructions: DI for Cellulitis -- Adult, High-Fiber Diet, Carbohydrate-Counting Diet, DI for Sepsis -- Adult, Catheter-Associated Urinary Tract Infection, Using Nutrition Labels: Carbohydrate Diet, Stop Light Infection Print Language: German Providers Primary Care Provider: Malcolm Hayward Provider: Yehuda Martinez Attending Provider: Yehuda Martinez
--- NOTE | 2024-12-12 18:10 | PC.NURSE ---
pt has a bed avaliable for transfer to . report called to nurse receiving pt at at 6:10.
--- NOTE | 2024-12-12 20:41 | PC.NURSE ---
Patient left floor with EMS at 20:38.
== END 2024-12-12 20:38 | disposition short-term general hospital (02) | DRG 853 ==
LOC: ER 21:29 → 2ND 23:16
PROVIDERS: Emergency Medicine; Internal Medicine Adolescent Medicine; Admitting Provider Student in an Organized Health Care Education/Training Program; Emergency Provider Emergency Medicine; PCP Nurse Practitioner Family; Visit Provider Student in an Organized Health Care Education/Training Program
DX: A41.9 Sepsis, unspecified organism (principal); M72.6 Necrotizing fasciitis; L02.415 Cutaneous abscess of right lower limb; L03.115 Cellulitis of right lower limb; Z68.45 Body mass index [BMI] 70 or greater, adult; L03.311 Cellulitis of abdominal wall; L03.314 Cellulitis of groin; I50.32 Chronic diastolic (congestive) heart failure; L02.429 Furuncle of limb, unspecified; G47.33 Obstructive sleep apnea (adult) (pediatric); E66.01 Morbid (severe) obesity due to excess calories; F19.10 Other psychoactive substance abuse, uncomplicated; R32 Unspecified urinary incontinence; I89.0 Lymphedema, not elsewhere classified; J44.9 Chronic obstructive pulmonary disease, unspecified; E11.42 Type 2 diabetes mellitus with diabetic polyneuropathy; E11.621 Type 2 diabetes mellitus with foot ulcer; L97.521 Non-pressure chronic ulcer of other part of left foot limited to breakdown of skin; E78.2 Mixed hyperlipidemia; E11.65 Type 2 diabetes mellitus with hyperglycemia; I48.0 Paroxysmal atrial fibrillation; I11.0 Hypertensive heart disease with heart failure; L03.032 Cellulitis of left toe; B35.1 Tinea unguium; M21.42 Flat foot [pes planus] (acquired), left foot; M19.071 Primary osteoarthritis, right ankle and foot; M77.32 Calcaneal spur, left foot; L57.0 Actinic keratosis; L97.512 Non-pressure chronic ulcer of other part of right foot with fat layer exposed; T36.8X5A Adverse effect of other systemic antibiotics, initial encounter; Y92.238 Other place in hospital as the place of occurrence of the external cause; Z87.891 Personal history of nicotine dependence; Z79.4 Long term (current) use of insulin
CPT/HCPCS: 36415; 51702; 76882; 80053; 80061; 82962; 83036; 83605; 83735; 84100; 84145; 85007; 85025; 85610; 85651; 85730; 86140; 87040; 99291; J0736; J1650; J1938; J1939; J2020; J2270; J2543; J3475; J7030

== ENCOUNTER 2024-12-28 20:30 | Outpatient (CLI) | payer MEDICARE, BC, SELFPAY ==
--- OUTSIDE RECORDS SUMMARY | 2024-12-12 22:28 | XMS_ITS | Encounter Summary ---
Author Organization Healthcare Address [address] [place] [id number] Care Team Providers Care Clinical Reviewer Name Role Phone Mainor Malcolm Rodrick DIANA Primary Care Provider [phone] Reason for Referral * Home Health (Routine) - Authorized Specialty Diagnoses / Procedures Referred By Anish conklin Referred To Contact Home Health Services Diagnoses Abscess of groin, right Leidy Hernandez MD [address] [place] [address] Phone: tel: fax: Referral ID Status Reason Start Date Expiration Date Visits Requested Visits Authorized [id number] Authorized Specialty Services Required 12/19/2024 06/20/2026 999 999 * Consultation (Routine) - Authorized Specialty Diagnoses / Procedures Referred By Anish conklin Referred To Contact Urology Diagnoses Urge incontinence Urinary retention Rachael Berrios APRN [address] [place] [address] Phone: tel: fax: [facility] [address] [place] [address] Phone: tel: fax: Referral ID Status Reason Start Date Expiration Date Visits Requested Visits Authorized [id number] Authorized Specialty Services Required 12/17/2024 06/18/2026 1 1 Scheduling Instructions Voiding trial and urge incontinence Reason for Visit * Auth/Cert (Routine) Specialty Diagnoses / Procedures Referred By Contac t Referred To Contact Diagnoses Abscess of groin, right cellulitis w/ abscess formation, needs debridement Nicole Casas MD [address] [address] Phone: tel: fax: [facility] 9 T[address] [place] [address] Phone: tel: Referral ID Status Reason Start Date Expiration Date Visits Re quested Visits Authorized [id number] 1 1 Encounter Details Date Type Department Care Team (Latest Contact Info) Description 12/12/2024 10:28 PM EDT - 12/17/2024 1:17 PM EDT Hospital Encounter [facility] HUYNH 9 T[address] [place] [id number] Nicole Casas MD [facility] [address] [address] Leidy Hernandez MD [address] [address] Rian Robertson MD [facility] [address] [address] Abscess of groin, right (Primary Dx); Urge incontinence; Urinary retention; Acute kidney injury ([facility]) Discharge Disposition: Home or Self Care Social History Tobacco Use Types Packs/Day Years Used Date Smoking Tobacco: Former Cigarettes Smokeless Tobacco: Current Snuff Comments:1 can daily. Alcohol Use Standard Drinks/Week Comments Not Currently 0 (1 standard drink = 0.6 oz pur e alcohol) PHQ-2 Answer Date Recorded Patient Health Questionnaire-2 Score 0 09/13/2024 PHQ-9 Answer Date Recorded Patient Health Questionnaire-9 Score 0 09/13/2024 Humiliation, Afraid, Rape, and Kick questionnair e Answer Date Recorded Within the last year, have y ou been afraid of your partner or ex-partner? No 12/16/2024 Within the last year, have y ou been humiliated or emotionally abused in other ways by your partner or ex-partner? No Within the last year, have y ou been kicked, hit, slapped, or otherwise physically hurt by your partner or ex-partner? No 12/16/2024 Within the last year, have y ou been raped or forced to have any kind of sexual activity by your partner or ex-partner? No 12/16/2024 Hunger Vital Sign Answer Date Recorded Within the past 12 months, y ou worried that your food would run out before you got the money to buy more. Never true 12/17/19 25 Within the past 12 months, t he food you bought just didn't last and you didn't have money to get more. Never true 12/16/2024 PRAPARE - Transportation Answer Date Re corded In the past 12 months, has l ack of transportation kept you from medical appointments or from getting medications? No 12/2024 In the past 12 months, has l ack of transportation kept you from meetings, work, or from getting things needed for daily living? No 12/16/2024 Housing Stability Vital Sign Answer Nick e Recorded In the last 12 months, was t here a time when you were not able to pay the mortgage or rent on time? No 12/16/2024 In the past 12 months, how m any times have you moved where you were living? 0 12/16/2024 At any time in the past [address] [facility], were you homeless or living in a penitentiary (including now)? No 12/16/2024 Utilities Answer Date Recorded In the past 12 months has th e electric, gas, oil, or water company threatened to shut off services in your home? No 12/16/2024 PHQ-2A Answer Date Recorded Patient Health Questionnaire-2 Score 3 12/24/2022 Sex and Gender Information Value Date Recorded Sex Assigned at Not on file Legal Sex Male 8:50 PM EDT Gender Identity Not on file Sexual Orientation Not on file documented as of this encounter Last Filed Vital Signs Vital Sign Reading Time Taken Comments Blood Pressure 128/65 12/17/2024 7:55 AM EDT Pulse 67 12/17/2024 7:55 AM EDT Temperature 36.4 C (97.5 F) 12/17/2024 7:55 AM EDT Respiratory Rate 18 12/17/2024 3:44 AM EDT Oxygen Saturation 95% 12/17/2024 7:55 AM EDT Inhaled Oxygen Concentration - - Weight 256 kg (564 lb 6 oz) 12/14/2024 8:00 AM E DT Height 182.9 cm (6' 0.01 ) 12/14/2024 8:00 AM ED T Body Mass Index 76.53 12/14/2024 8:00 AM EDT documented in this encounter Functional Status * Calculated C-SSRS Risk Score (Lifetime/Recent) Answer Date of Assessment Author No Risk Indicated 12/16/2024 8:00 PM EDT Micki Taylor RN * Question Answer Date of Assessment Author 1. Wish to be (Past 1 Month) No 12/16/2024 8:00 PM EDT Micki Miller RN 2. Non-Specific Active Suici jonny Thoughts (Past 1 Month) No 12/16/2024 8:00 PM EDT Louise Miller RN 6. Suicidal Behavior (Lifetime) No 8:00 PM EDT Micki Miller RN documented as of this encounter Discharge Instructions * Discharge Instructions* Rachael Berrios APRN - 12/17/2024 10:20 AM EDT Discharge Instructions: Medications: - You should take Tylenol every 6 hours for pain - You have been prescribed pain medications to be taken as needed for severe pain. Stop home hydrocodone/tylenol while taking the oxycodone. Do not exceed 4000 mg tylenol product in one day - You should take the stool softener (miralax) prescribed as long as you are taking narcotics. - You may resume your previous medications unless otherwise instructed. - Complete all bactrim as prescribed, until it is all gone Nutrition: - You should low carbohydrate, diabetic-friendly diet. Activity: - Walking and climbing stairs is ok and encouraged. You should refrain from any strenuous activity/exercise until your follow up appointment. - No lifting anything >5-10lbs for the next 6 weeks. - You may not drive for 48 hours after surgery, or while taking narcotics. - Activity as tolerated. Dressing: - You should not soak your incision or take a tub bath for 2 weeks. - You have a drain in your incision. This will be removed at follow up - Remove packing twice daily and replace with wet to dry guaze - You may shower. Let the soapy water run over your incisions. Do not scrub at your incisions. After you shower, pat your incisions dry with a clean towel. Potential Issues: - It is normal to have some pain and soreness, especially around the incisions - A small amount of clear drainage from the incision may be expected, call the office if the drainage becomes bloody, purulent (pus), or foul-smelling - Call the office if you start to have increased redness, drainage, swelling, or increased pain around your incision - Call the office if you have a fever greater than 101 F - Call the office if you have severe abdominal discomfort, nausea and vomiting, or feeling unwell Follow Up: -You will be scheduled to follow up with Abigail King for wound check/drain removal. You will becalled with a time. - You will be scheduled to follow up with urology for rios removal and evaluation of urge incontinence - You have been referred for Home health, they will call you to set up appointment if insurance approves and facility accepts you - You have been referred to [facility] wound care clinic. Call on Thursday for appointment -Follow up with home provider for ongoing diabetic wounds Questions or Concerns and Appointments If there are questions or concerns after discharge from the hospital, call Juliana Guzmán, Nurse Coordinator between 7am-3pm at [phone]. If it is after hours, weekends, and holidays please call [phone] and ask for the resident production operations manager for Emergency General Surgery. For appointments please call our General Surgery Clinic at [phone]. Medication requests should be made between the hours of 9:00 AM to 3:00 PM Thursday thru Thursday. Please note that based upon recent changes to [place] law related to prescribing opioid pain medications, our providers will not provide refills on controlled medications after your hospital discharge following a major surgery or trauma. [place] 201 KAR9:260. documented in this encounter Medications at Time of Discharge acetaminophen (Tylenol) 325 MG tablet Take 2 tablets by mouth every 6 hours as needed for pain. Under [place] law, monthly prescriptions (30 days) can be refilled at 25 days and three-month prescriptions (90 days) at 80 days. Please contact the insurance company with questions if refills are denied. 100 tablet 5 albuterol 108 (90 Base) MCG/ACT inhaler Inhale 2 puffs every 4 to 6 hours as needed for wheezing or shortness of breath. atorvastatin (Lipitor) 40 MG tablet Take 1 tablet by mouth daily. 8 bisoprolol (Zebeta) 5 MG tablet Take 1 tablet by mouth 2 times a day. 1 cariprazine (Vraylar) 3 MG capsule Take 1 capsule by mouth daily. dilTIAZem CD (Cardizem CD) 120 MG 24 hr capsule Take 1 capsule by mouth daily. gabapentin (Neurontin) 600 MG tablet Take 1 tablet by mouth 3 times a day. 2 insulin NPH-insulin regular (NovoLIN 70/30 FlexPen) (70-30) 100 UNIT/ML injection pen Inject 90 Units under the skin 3 times a day before meals. 15 mL 3 5 LORazepam (Ativan) 1 MG tablet Take 1 tablet by mouth daily as needed. 7 metFORMIN (Glucophage) 1000 MG tabletIndications:T ype 2 diabetes mellitus TAKE 1 TAB BY MOUTH 2 (TWO) TIMES A DAY WITH MEALS. MUST COMPLETE LABS FOR FURTHER RESULTS. 180 tablet 1 5 mupirocin (Bactroban) 2 % ointment Apply 1 Application topically 2 times a day. naloxone (Narcan) 4 mg/0.1 mL nasal spray 1. Give 1 spray in nostril for no/slow breathing or cannot wake after opioid use 2. Call 911 3. Repeat in other nostril if symptoms continue 1 each 5 omeprazole (PriLOSEC) [address] capsule Take 1 capsule by mouth 2 times a day. 7 ondansetron ODT (Zofran-ODT) 4 MG disintegrating tablet Dissolve 1 tablet on the tongue every 6 hours as needed for nausea or vomiting. 20 tablet 5 oxyCODONE (Roxicodone) 5 MG immediate release tablet Take 1 tablet by mouth every 6 hours as needed for severe pain. 9 tablet 5 polyethylene glycol (Miralax) 17 g packet Take 17 g by mouth daily. 30 packet 5 rivaroxaban (Xarelto) 20 MG tablet Take 1 tablet by mouth daily. 0 spironolactone (Aldactone) 50 MG tablet Take 1 tablet by mouth daily. 1 torsemide (Demadex) 20 MG tablet Take 1 tablet by mouth daily. traZODone (Desyrel) 100 MG tablet Take 1 tablet by mouth nightly. 9 venlafaxine XR (Effoxor-XR) 150 MG 24 hr capsule Take 1 capsule by mouth daily. 8 sulfamethoxazole-tr imethoprim (Bactrim DS) 800-160 MG tabletIndications:A bscess of groin, right Take 2 tablets by mouth 2 times a day for 5 doses. 10 tablet 5 12/21/19 25 documented as of this encounter Miscellaneous Notes * Nursing Note - Siri Calvin RN - 12/17/2024 12:16 PM EDT Discharge education. Patient received discharge education with family at bedside. Wound care for multiple wounds demonstrated and taught back, wound care supplies sent with family to cover the next several days until home health is able to see them, catheter care also demonstrated and educated. Family and patient confident with wound and catheter care until home health can see them. No further concerns at this time. Patient waiting for discharge transportation. Siri Calvin RN 12/17/24 12:18 PM * Consults - Liss Elder - 12/17/2024 11:31 AM EDTAssociated Order(s): IP CONSULT TO DIABETIC EDUCATION Adult Diabetes Education Team Note Gonzalo Russell 49 y.o. male CSN: [id number] This is a 49 y.o. male patient was admitted to [facility] with the diagnosis of abscess of groin. DM education for automatic A1c>9% Labs: A1C 10.9 12/12/24 FSBG-PRN FSBG FSBG Other FSBG-AC FSBG-HS FSBG-3a POCBG Ranges: [phone] Home Monitoring Of Diabetes Home Medications for Diabetes: Novolin 70/30 90u tid, metformin 1000mg bid Any barriers/issues getting DM/RX Supplies? No Education Diabetic Education Performed with patient, spouse, and parent(s) Mgagie () and Trudy (mom). Medication Education instructions given: The use of insulin Injection sites and rotation Importance of taking basal insulin Instructed on primary team recommendations for discharge: stop ozempic continue NovoLIN 70/30 90u tid and metformin 1000mg bid Diabetic Monitoring Education instructions given: Test Times Target Goals Action to take for results outside the target goals Hyperglycemia causes, signs, symptoms and treatment Hypoglycemia Management instructions given: Symptoms, causes, and treatment Nutrition instructions given: Appropriate meal schedule Plate method Carbohydrate containing foods Encouraged consistent meal times, cho intakes, and limiting concentrated sweets especially given 70/30 mixed insulin use and action/durations of mixed insulin Sick Day Management instructions given: Importance of always taking basal insulin When to call the doctor Complications and Hygiene instructions given: A1C Complications Prevention Importance of BG control for wound healing, infection prevention, and complication prevention Follow Ups: Provided with educational literature and the diabetic [facility] diabetes basics booklet, [facility] 60g cho handout, myplate tear sheet, and current insulin dose cheat sheet, A1c and complications Diabetes Education Team Recommendations: pt and family endorses understanding of education without questions at this time. Pt needing insulin vials, glucometer, glucometer strips, glucometer lancets,and syringes prescriptions at discharge. Rachael Berrios with [facility] floor 1 team alerted to DM education completion Education Time 30 minutes Liss Elder * Tonie Chong RN - 12/17/2024 11:20 AM EDT Images from the original note were not included. [id number] Caring for an Open Surgical Drain ([place] Drain) You?ve had surgery. You now have a temporary tube (drain) placed in the surgical site. The tube removes extra blood or other fluids that may collect at the site. This helps to prevent infection as you heal. You have a type of drain called an open surgical drain ([place] drain). This is a flat, soft tube. Part of the tube is inside your body. The other end of the tube goes outside your body. There is a dressing (gauze bandage) around this end of the tube. This collects any blood or fluid that comes out. There may be a small safety pin on the end of the drain. This stops the tube from sliding down into your wound. You?ll need to change the dressing at home as often as your healthcare provider tells you to. Always follow your provider?s specific instructions. You?ll also need to take notes about the color of the drained fluid, how much fluid is on the dressing, and if there?s a bad smell. As your incision heals, there will be less fluid on the dressing. Follow these steps below to change your dressing. Supplies Have these items ready before you start: ? Nonsterile gloves ? Soap ? Clean washcloth ? 2 sterile 6-lnnt-xx-4-inch gauze pads ? Clean scissors (if needed to cut the gauze pads) ? Paper tape Changing your dressing 1. Remove the dressing ? Wash your hands with soap and clean, running water. Scrub your hands for at least 20 seconds. ? Carefully take off the dressing. Look at the color and the amount of drainage on the dressing. Also notice if it has a bad smell. Throw the dressing away. When you are done removing the dressing, write down the date and time and any details about the color and amount of fluid, and any bad smell. ? Look around the drain insertion site. Call your provider?s office if you have any swelling, soreness, a bad odor, or pus. This could be a sign of infection. 2. Clean the site ? Wash your hands again with soap and clean, running water. ? Put on the nonsterile gloves. ? Clean around and under your drain using the clean washcloth, soap, and water. Be careful not to pull the drain out, or for water to go into your wound. 3. Put on the new dressing ? The 3-fveg-dm-4-inch gauze pad should have a cut in it. If it doesn?t, make a cut in the pad using the clean scissors. Cut in the middle of 1 side of the pad. Cut until you reach the center of the pad. ? Place the cut gauze pad under and around the drain. ? Place the second, uncut gauze pad on top of the drain. ? Tape the edge of the dressings to keep them in place. ? Take off your gloves and throw them away. ? Wash your hands with soap and clean, running water. When to call your healthcare provider Call your healthcare provider right away if you have any of these: ? Signs of infection, such as: o Redness, pain, or swelling near the drain o Cloudy fluid coming out of the drain o A fever of 100.4??F (38??C) or higher, or as advised by your provider ? The fluid coming out of the drain is bad-smelling, thick, or green or white ? Bleeding at the drain site ? If the drain comes out or gets pulled Last Reviewed Date: 2023 00:00:00 ?? [id number] [employer]. All rights reserved. This information is not intended as a substitute for professional medical care. Always follow your healthcare professional's instructions. * Ruy OnFHIR - Tonie Connell RN - 12/17/2024 11:04 AM EDT Images from the original note were not included. 292 Bactrim (Sulfamethoxazole/Trimethoprim) ([place]) Bactrim prevents and treats infections. ? Take Bactrim exactly as your doctor ordered. ? Take Bactrim at the same time(s) every day. ? Take Bactrim with a full, 8oz glass of water. ? Keep taking the medicine until it is gone or until your doctor tells you to stop. ? You may be more sensitive to sunlight while taking this medicine. Use a sunscreen when you are outdoors. ? It is very important that you do not miss any doses of your Bactrim. But if you do: o Take the missed dose if it has only been less than 12 hours from the time you were supposed to take your medicine. o If your Bactrim is more than 12 hours past due, skip that dose and continue with the next dose. o Do not take 2 doses at the same time unless your doctor tells you to. 400mg/80mg Single strength Your tablets may not look exactly like this. ? There are many medicines that can interfere with your Bactrim. Always check with your doctor before taking any other medicine, including dwti-xqz-aapkfxp medicines (for example aspirin), vitamins, herbals, or vaccines. ? Do not keep Bactrim in your bathroom. Keep your Bactrim at room temperature, away from heat, moisture, and direct light. ? Keep all medicine out of the reach of children. Possible Side Effects Allergic reactions such as: ? Rash or hives ? Swelling in the face or hands ? Swelling or tingling in the mouth or throat ? Tightness in the chest ? Trouble breathing Other side effects may include: ? Yellowing of skin or eyes ? Diarrhea ? Stomach cramps ? Nausea and vomiting ? Sensitivity to sunlight Please call your title i coordinator, pharmacist, or doctor if you have any questions about thismedicine. * Ruy OnIR - Tonie Connell RN - 12/17/2024 11:03 AM EDT 1087 Oxycodone Oral Tablet, Immediate Release Brand Names: Oxaydo, Roxicodone What is this medicine? Oxycodone (ii-r-QOM-done) is an opioid pain reliever. It is used to treat moderate to severe pain. What should I tell my health care provider before I take this medicine? They need to know if you have any of these conditions: ? [place]'s disease ? Brain tumor or head injury ? Personal or family history of drug abuse or addiction ? Heart disease ? Frequent alcohol use ? Kidney disease ? Liver disease ? Lung disease, asthma, or breathing problems ? Depression, anxiety, or other psychiatric disease ? Allergy or unusual reaction to oxycodone, acetaminophen or other pain relievers ? , trying to get , or How should I use this medicine? Take this medicine as prescribed by your doctor, and follow the directions on the prescription label. ? Take this medicine as prescribed by your doctor. Follow the directions on the prescription label. ? Do not take this medicine more often than directed. ? This medicine should be taken with a full glass of water. ? If it upsets your stomach, you may take it with food. You do not have to take this medicine with food. ? Do not crush, cut, chew, lick, wet, soak, or otherwise manipulate a tablet before taking. ? Do not share this medicine with others. This medicine is only for you. ? The pharmacy will give you a special medication guide each time you medicinal plant picker this medicine. ? Overdosage: Taking too much of this medicine can be deadly. Your doctor may prescribe another medicine with this medicine to treat an accidental overdose. If you think you have taken too much of this medicine, call 911 immediately. What if I miss a dose? If you miss a dose, you may take it as soon as you remember. If it is almost time for your next dose, take only that dose. Do not take double or extra doses. What may interact with this medicine? ? Alcohol ? Medicines for sleep, depression, anxiety, or psychiatric diseases ? Seizure medicines like gabapentin, pregabalin, phenytoin, or phenobarbital ? Other pain medicines like tramadol, hydrocodone, fentanyl, or morphine ? Muscle relaxers ? Certain nausea medicines like chlorpromazine or promethazine ? Cannabinoids like droperidol ? Certain antibiotics like erythromycin, clarithromycin, rifampin, ritonavir, voriconazole, or ketoconazole ? Allergy medicines like diphenhydramine This list may not describe all possible interactions. Give your health care provider a list of all the medicines, herbs, non-prescription drugs, or dietary supplements you use. Also tell them if you smoke, drink alcohol, or use illegal drugs. Some items may interact with your medicine. What should I watch for while using this medicine? ? Before you start taking this medicine, talk with your doctor about how long you should be on thismedicine. You should also talk to your doctor about other things you can do to treat pain, including other medicines or non-drug treatments like meditation or acupuncture. While taking this medicine,tell your doctor if your pain does not go away or gets worse or if you have a new or different typeof pain. ? It is possible you could become dependent on this medicine. The risk of dependence increases the longer you are on the medicine. Dependence is not addiction; however, if you have a personal or family history of addiction, you are at higher risk for becoming addicted to this medicine. Talk to yourdoctor if you are worried about dependence or addiction. ? If you take this medicine for a long time and suddenly stop taking this medicine, you may withdraw from this medicine. Withdrawal from this medicine may cause sweating, pain, diarrhea, anxiety, tremor, and other symptoms. Stopping the medicine slowly can reduce withdrawal symptoms. ? This medicine may cause dizziness or drowsiness, especially when you change doses or first start the medicine. Do not drive, use machinery, or do anything dangerous until you know how your body reacts to this medicine. ? This medicine causes constipation. Unless your doctor tells you not to, you should take a stool softener while on this medicine. Tell your doctor if you have not had a bowel movement in 3 or more days while on this medicine. ? This medicine can also cause dry mouth. Drinking water, chewing gum, or sucking on hard candy canhelp. It is important to keep regular dentist appointments. What side effects may I notice from receiving this medicine? Side effects that you should report to your doctor or health congregational care pastor as soon as possible: ? allergic reactions like skin rash, itching or hives, swelling of the face, lips, or tongue ? breathing problems ? confusion ? craving for the medicine or withdrawal symptoms with a missed dose ? feeling faint or lightheaded, falls ? trouble passing urine or change in the amount of urine ? unusually weak or tired Side effects that usually do not require medical attention (report to your doctor or health congregational care pastor if they continue or are bothersome): ? constipation ? dry mouth ? itching ? nausea, vomiting ? upset stomach This list may not describe all possible side effects. Call your doctor for medical advice about side effects. You may report side effects to FDA at 1-824-ZRH-8052. Where should I keep my medicine? This medicine should be kept in a locked cabinet away from children and protected from theft. This medicine can be abused. Do not share this medicine with anyone. Selling or giving away this medicineis against the law. Store at room temperature (60-80??F) in a dry place that is protected from light. Do not save unused medicine that is no longer needed. Unused medicine should be taken to a proper disposal location. To find a disposal location, visit [employer]/[facility]/[place]. If you cannot take unused medicine to a proper location, you can mix the medicine with coffee grounds or elissa litter and dispose of in the normal trash. Your doctor may also give you a special disposal pouch for this medicine. You can also flush the medicine down the toilet. * Jordongrzegorz OnIR - Tonie Connell RN - 12/17/2024 11:03 AM EDT Images from the original note were not included. 450 Safe Use of Controlled Substances Taking a medicine may be an important part of your treatment. Your body should heal faster if you take medicine safely. Some medicines are called Controlled Substances. This means their use is controlled by law. Some of these can harm you if you do not take them safely. What can I do to make sure I take my medicine safely? ? Follow the instructions we give you for how to take your medicine. ? We will give you an instruction sheet for each of your medicines. Ask your doctor or nurse if youdo not get these instructions. ? Some medicines make you sleepy or cloud your thinking. Do not drive, use heavy machines or do dangerous activities while taking these medicines. ? Read the label on the bottle each time you take your medicine. ? Do not take your medicine with alcohol or other sedatives. ? Do not take medicine after the expiration date. ? It is against the law to sell your medicine or share it with others. ? Do not drive while using your medicine. How should I store my medicine? Store it in a safe place. This will keep others from taking your medicine and help you keep track of it. ? Store controlled substances in a cabinet or container that you can lock. ? Keep it in a place that is cool, dry and out of direct sunlight. ? Do not leave it in the car. ? Do not store in a refrigerator or freezer, unless your doctor tells you to. ? Call your doctor right away if your medicine is lost or stolen. How should I dispose of medicine that is or no longer needed? You may have medicine left over that you do not need or should not take. You must dispose of it theright way to protect yourself and others. You can ask your local pharmacist how to dispose of them.You can also visit these Web sites to learn more about disposal of controlled substances: ? Drug Enforcement Agency ([place]AN): http://www.deadiversion.[employer].gov/drug_disposal/takeback/index.htm ? National Association of Drug Diversion Investigators (NADDI): http://rxdrugdropbox.org/ ? [place] Office of Drug Control Policy: http://odcp.[place].gov/Prescription+Drug+Drop+Box+Sites.htm Are there concerns about or ? ? Before you take a medicine, tell your doctor if you are or plan to get . This could harm your baby. ? Tell your doctor if you breastfeed. Medicine in breast milk may be bad for your child. What if I have low or impaired vision? If you have vision problems, take extra care with your medicine. ? Wear your glasses when you take your medicine. ? Do not take medicine in the dark. What are the signs of overdose? Some controlled substances may cause breathing problems if you take more than your doctor recommends. This may lead to serious health problems or even . You and your caregivers should watch for the following signs of overdose. ? Slurred speech, confusion or stumbling ? Feeling dizzy or faint ? Acting drowsy or groggy ? Unusual snoring, gasping or snorting during sleep ? Hard to wake up or keep awake What should I or my caregiver do if I overdose? You or your caregiver should call 911 if you have any of these problems: ? Cannot wake up ? Cannot talk after waking up ? Shortness of breath, slow or light breathing, or breathing has stopped ? Heartbeat is slow or stopped ? Gurgling noise comes from the mouth or throat ? Body is limp or seems lifeless ? Face is pale or clammy ? Fingernails or lips look blue or purple What is a ESTUARDO report? ESTUARDO is a system that tracks prescriptions of controlled substances in [place]. The ESTUARDO report tells your doctor if you have been prescribed controlled substances in the past. Doctors must get a ESTUARDO report before prescribing controlled substances. What can I do if the information in my ESTUARDO report is wrong? You or your doctor may contact the dispenser who reported the information to [facility]. If the dispenser agrees that the information should be changed, he or she can fix the ESTUARDO report. However, the dispenser may certify that the report is correct. If that is the case, you or your doctor may then call the [place] Drug Enforcement and Professional Practices Branch at .This will start an investigation of the error. * [facility] - Tonie Connell RN - 12/17/2024 11:03 AM EDT Images from the original note were not included. 54990 Taking Care of Your Urinary Catheter Bag You have an indwelling urinary catheter. This drains urine from your bladder into a bag. The bag can be one that is used at your bedside. Or it can be a smaller bag that is strapped to your leg. Follow the steps below to care for a urinary bag. Step 1. Drain the bag ? Wash your hands well with soap and water to prevent infecting the urinary catheter and bag. ? If the short drainage tube is inserted into a pocket on the bag, take the drainage tube out of the pocket. ? Hold the drainage tube over a toilet or measuring container. Open the valve. ? Don?t touch the tip of the valve or let it touch the toilet or container. ? Wash your hands again. ? Some bags are disposable while others may be cleaned. Ask your care team for advice for your bag. Step 2. Clean the drainage tube ? When the bag is empty, clean the tip of the drainage valve with an alcohol wipe. ? Close the valve. ? Reinsert the drainage tube into the pocket, if there is one. Step 3. Clean your skin ? Wash your hands well before and after cleaning your skin. ? If you have a catheter (such as a Rios) that enters through the urethra, clean the urethral areawith soap and water 1 time(s) daily as you were taught by your healthcare provider. You should alsoclean after every bowel movement to prevent infection. o Don't pull on the tubing when cleaning so you don?t injure the urethra. o Don?t apply antibiotic ointment or any other antibacterial product to the urethra. o Don?t use lubricant on the urethra. o Don?t apply powder to the genital area or to the tubing. ? If you have a suprapubic catheter, your provider will tell you how to clean your skin around the catheter. This is a catheter that was surgically placed into the bladder through the lower belly (abdomen). Step 4. Check and clean the catheter tubing ? Check the tubing. If there are kinks, cracks, clogs, or you can?t see into the tubing, you?ll need to change to new tubing as you were shown by your healthcare provider. ? If the current tubing can still be used, wash it with soap and water. Always wash the tubing in the direction away from your body. Don't pull on the tubing. ? Dry the tubing with a clean washcloth or paper towel. When to call your healthcare provider Call your healthcare provider right away if you have any of these: ? Little or no urine flowing into the bag ? Urine leaking where the catheter enters the body ? Pain, burning feeling, or redness where the catheter enters the body ? Bloody urine (a trace of blood is normal) ? Cloudy or bad-smelling urine, or sand-like grains in your urine ? Pain in your lower back or lower belly (abdomen) ? Your catheter falls out ? Fever of 100.4?? F ( 38??C ) or higher, or as advised by your provider ? Shaking chills Last Reviewed Date: 2023 00:00:00 ?? [id number] The [employer]. All rights reserved. This information is not intended as a substitute for professional medical care. Always follow your healthcare professional's instructions. * Ruy HoffmanTonie Ceja RN - 12/17/2024 11:03 AM EDT Images from the original note were not included. [id number] Discharge Instructions: Caring for Your Indwelling Urinary Catheter You have been discharged with an indwelling urinary catheter. It's also called a Rios catheter. A catheter is a thin, flexible tube. An indwelling urinary catheter has two parts. The first part is atube that drains urine from your bladder. The second part is a bag or other device that collects the urine. The most important thing to remember is that you want to prevent infection. Always wash your hands before handling your catheter bag or tubing. Draining the bedside bag ? Wash your hands with soap and clean, running water. Or use an alcohol-based hand commissions coordinator that contains at least 60% alcohol. ? Hold the drainage tube over a toilet or measuring container. ? Unclamp the tube, and let the bag drain. ? Don?t touch the tip of the drainage tube or let it touch the toilet or container. ? Don't rinse the bag or drainage tube. Cleaning the drainage tube ? When the bag is empty, clean the tip of the drainage tube with an alcohol wipe. ? Clamp the tube. ? Reinsert the tube into the pocket on the drainage bag. Cleaning your skin and tubing ? Clean the skin near the catheter with soap and water. ? Wash your genital area from front to back. ? Wash the catheter tubing. Always wash the catheter in the direction away from your body. ? You will be told when and how to change your bag and tubing. ? Don?t try to remove the catheter by yourself. ? You may shower with the catheter in place. Emptying a leg bag ? Wash your hands. ? Remove the stopper on the bag. ? Drain the bag into the toilet or a measuring container. Don?t let the tip of the drainage tube touch anything, including your fingers. ? Clean the tip of the drainage tube with alcohol. ? Replace the stopper. Follow-up care Make a follow-up appointment, or as directed by your doctor. When to call your doctor Contact your doctor right away if you have: ? A fever of 100.4??F ( 38??C) or higher, or as directed by your doctor. ? Chills. ? Leakage around the catheter insertion site. ? Increased spasms (uncontrollable twitching) in your legs, belly (abdomen), or bladder. Occasionalmild spasms are normal. ? Burning in the urinary tract, penis, or genital area. ? Nausea and vomiting. ? Aching in the lower back. ? Cloudy or bloody (pink or red) urine, sediment or mucus in the urine, or bad- smelling urine. Last Reviewed Date: 2024 00:00:00 ?? [id number] The [employer]. All rights reserved. This information is not intended as a substitute for professional medical care. Always follow your healthcare professional's instructions. * Ruy Baires - Tonie Connell RN - 12/17/2024 11:02 AM EDT Images from the original note were not included. [id number] Caring for an Open Surgical Drain ([place] Drain) You?ve had surgery. You now have a temporary tube (drain) placed in the surgical site. The tube removes extra blood or other fluids that may collect at the site. This helps to prevent infection as you heal. You have a type of drain called an open surgical drain (Yonis drain). This is a flat, soft tube. Part of the tube is inside your body. The other end of the tube goes outside your body. There is a dressing (gauze bandage) around this end of the tube. This collects any blood or fluid that comes out. There may be a small safety pin on the end of the drain. This stops the tube from sliding down into your wound. You?ll need to change the dressing at home as often as your healthcare provider tells you to. Always follow your provider?s specific instructions. You?ll also need to take notes about the color of the drained fluid, how much fluid is on the dressing, and if there?s a bad smell. As your incision heals, there will be less fluid on the dressing. Follow these steps below to change your dressing. Supplies Have these items ready before you start: ? Nonsterile gloves ? Soap ? Clean washcloth ? 2 sterile 0-[id number]-inch gauze pads ? Clean scissors (if needed to cut the gauze pads) ? Paper tape Changing your dressing 1. Remove the dressing ? Wash your hands with soap and clean, running water. Scrub your hands for at least 20 seconds. ? Carefully take off the dressing. Look at the color and the amount of drainage on the dressing. Also notice if it has a bad smell. Throw the dressing away. When you are done removing the dressing, write down the date and time and any details about the color and amount of fluid, and any bad smell. ? Look around the drain insertion site. Call your provider?s office if you have any swelling, soreness, a bad odor, or pus. This could be a sign of infection. 2. Clean the site ? Wash your hands again with soap and clean, running water. ? Put on the nonsterile gloves. ? Clean around and under your drain using the clean washcloth, soap, and water. Be careful not to pull the drain out, or for water to go into your wound. 3. Put on the new dressing ? The 1-fzof-fg-4-inch gauze pad should have a cut in it. If it doesn?t, make a cut in the pad using the clean scissors. Cut in the middle of 1 side of the pad. Cut until you reach the center of the pad. ? Place the cut gauze pad under and around the drain. ? Place the second, uncut gauze pad on top of the drain. ? Tape the edge of the dressings to keep them in place. ? Take off your gloves and throw them away. ? Wash your hands with soap and clean, running water. When to call your healthcare provider Call your healthcare provider right away if you have any of these: ? Signs of infection, such as: o Redness, pain, or swelling near the drain o Cloudy fluid coming out of the drain o A fever of 100.4??F (38??C) or higher, or as advised by your provider ? The fluid coming out of the drain is bad-smelling, thick, or green or white ? Bleeding at the drain site ? If the drain comes out or gets pulled Last Reviewed Date: 2023 00:00:00 ?? [id number] The [employer]. All rights reserved. This information is not intended as a substitute for professional medical care. Always follow your healthcare professional's instructions. * Discharge Summary - YashManojlouise Voss APRN - 12/17/2024 10:24 AM EDT Hospitalization Admit Date/Time: 12/12/2024 10:28 PM Admitting Attending: Nicole Casas Discharge Date: 12/17/2024 Discharge Attending Physician: Rian Robertson MD PCP name and Address: Malcolm Hayward APRN [address] [facility] / [place] [address] Referring provider name and address: Sebastián Todd MD [address] [facility] [address], [place] [address] Chief Concern, Brief History of Present Illness, and Hospital Course Chief Complaint: Right groin/thigh pain Gonzalo Russell is a 49 y.o. male with PMHx significant for morbid obesity (BMI >70), Afib (on xarelto), T2DM, GERD, AUD (in recovery), cholecystectomy, prior bariatric surgery, and QUINN who presented to the [facility] on 12/12/2024 as a direct admission due to c/f NSTI vs abscess following transfer from OSH where he presented with several days of pain localized to his proximal, medial thigh, fe stanton to 101F, and WBC 10k with lactate >3. Patient was unable to undergo cross sectional imaging w/ CT at OSH due to his waist circumference, although US of right medial thigh demonstrated phlegmonin this area. Patient was treated with IV clindamycin, linezolid, and zosyn prior to transfer. On arrival he is HDS and afebrile with initial labs unremarkable. Copied from admission H&P. 12/13: bedside incision and drainage, placed yonis/vessel loops (Augusto) Follow up with [facility] clinic for wound check Follow up with urology for rios removal Follow up with PCP within one week after discharge for post hospitalization visit. At the time of discharge the patient was hemodynamically stable, tolerating PO, voiding spontaneously, normal bowel function, mobilizing appropriately, with their pain controlled with PO medication. At this time, the patient has obtained the maximum benefit from the present hospital stay, and so will be discharged to home. Surgeries and Procedures Procedures performed in this encounter Procedures Incision and Drainage Medication List .. acetaminophen 325 MG tablet Commonly known as: Tylenol Take 2 tablets by mouth every 6 hours as needed for pain. Under [place] law, monthly prescriptions(30 days) can be refilled at 25 days and three-month prescriptions (90 days) at 80 days. Please contact the insurance company with questions if refills are denied. albuterol 108 (90 Base) MCG/ACT inhaler Inhale 2 puffs every 4 to 6 hours as needed for wheezing or shortness of breath. atorvastatin 40 MG tablet Commonly known as: Lipitor Take 1 tablet by mouth daily. bisoprolol 5 MG tablet Commonly known as: Zebeta Take 1 tablet by mouth 2 times a day. cariprazine 3 MG capsule Commonly known as: Vraylar Take 1 capsule by mouth daily. dilTIAZem CD 120 MG 24 hr capsule Commonly known as: Cardizem CD Take 1 capsule by mouth daily. gabapentin 600 MG tablet Commonly known as: Neurontin Take 1 tablet by mouth 3 times a day. LORazepam 1 MG tablet Commonly known as: Ativan Take 1 tablet by mouth daily as needed. metFORMIN 1000 MG tablet Commonly known as: Glucophage TAKE 1 TAB BY MOUTH 2 (TWO) TIMES A DAY WITH MEALS. MUST COMPLETE LABS FOR FURTHER RESULTS. mupirocin 2 % ointment Commonly known as: Bactroban Apply 1 Application topically 2 times a day. naloxone 4 mg/0.1 mL nasal spray Commonly known as: Narcan 1. Give 1 spray in nostril for no/slow breathing or cannot wake after opioid use 2. Call 911 3. Repeat in other nostril if symptoms continue NovoLIN 70/30 FlexPen (70-30) 100 UNIT/ML injection pen Generic drug: insulin NPH-insulin regular Inject 90 Units under the skin 3 times a day before meals. omeprazole [address] capsule Commonly known as: PriLOSEC Take 1 capsule by mouth 2 times a day. ondansetron ODT 4 MG disintegrating tablet Commonly known as: Zofran-ODT Dissolve 1 tablet on the tongue every 6 hours as needed for nausea or vomiting. oxyCODONE 5 MG immediate release tablet Commonly known as: Roxicodone Take 1 tablet by mouth every 6 hours as needed for severe pain. rivaroxaban 20 MG tablet Commonly known as: Xarelto Take 1 tablet by mouth daily. spironolactone 50 MG tablet Commonly known as: Aldactone Take 1 tablet by mouth daily. sulfamethoxazole-trimethoprim 800-160 MG tablet Commonly known as: Bactrim DS Take 2 tablets by mouth 2 times a day for 5 doses. torsemide 20 MG tablet Commonly known as: Demadex Take 1 tablet by mouth daily. traZODone 100 MG tablet Commonly known as: Desyrel Take 1 tablet by mouth nightly. venlafaxine XR 150 MG 24 hr capsule Commonly known as: Effexor-XR Take 1 capsule by mouth daily. Where to Get Your Medications These medications were sent to [facility] - [place], [place] - [address] [facility] [id number] acetaminophen 325 MG tablet naloxone 4 mg/0.1 mL nasal spray ondansetron ODT 4 MG disintegrating tablet oxyCODONE 5 MG immediate release tablet sulfamethoxazole-trimethoprim 800-160 MG tablet Discharge Diagnosis Medical Problems Active and Resolved Hospital Problems Hospital Uncontrolled type 2 diabetes mellitus with hyperglycemia, with long-term current use of insulin ([facility]) Current Assessment & Plan 12/12/2024 Hospital Encounter Written 12/15/2024 3:33 PM by Leidy Hernandez MD Poorly controlled with A1C of >10 Ongoing monitoring and insulin adjustments for control Is a patient of our endocrine team Morbid obesity with BMI of 60.0-69.9, adult ([facility]) Current Assessment & Plan 12/12/2024 Hospital Encounter Written 12/15/2024 3:32 PM by Leidy Hernandez MD Discussions with patient and his about his super morbid obesity Has had gastric sleeve in past Provide support for weight loss efforts * (Principal) Abscess of groin, right Current Assessment & Plan 12/12/2024 Hospital Encounter Written 12/15/2024 3:31 PM by Leidy Hernandez MD I&D with yonis drain placement Washout daily and cont dressing changes Discharge Instructions: Medications: - You should take Tylenol every 6 hours for pain - You have been prescribed pain medications to be taken as needed for severe pain. Stop home hydrocodone/tylenol while taking the oxycodone. Do not exceed 4000 mg tylenol product in one day - You should take the stool softener (miralax) prescribed as long as you are taking narcotics. - You may resume your previous medications unless otherwise instructed. - Complete all bactrim as prescribed, until it is all gone Nutrition: - You should low carbohydrate, diabetic-friendly diet. Activity: - Walking and climbing stairs is ok and encouraged. You should refrain from any strenuous activity/exercise until your follow up appointment. - No lifting anything >5-10lbs for the next 6 weeks. - You may not drive for 48 hours after surgery, or while taking narcotics. - Activity as tolerated. Dressing: - You should not soak your incision or take a tub bath for 2 weeks. - You have a drain in your incision. This will be removed at follow up - Remove packing twice daily and replace with wet to dry guaze - You may shower. Let the soapy water run over your incisions. Do not scrub at your incisions. After you shower, pat your incisions dry with a clean towel. Potential Issues: - It is normal to have some pain and soreness, especially around the incisions - A small amount of clear drainage from the incision may be expected, call the office if the drainage becomes bloody, purulent (pus), or foul-smelling - Call the office if you start to have increased redness, drainage, swelling, or increased pain around your incision - Call the office if you have a fever greater than 101 F - Call the office if you have severe abdominal discomfort, nausea and vomiting, or feeling unwell Follow Up: -You will be scheduled to follow up with Abigail King for wound check/drain removal. You will becalled with a time. - You will be scheduled to follow up with urology for rios removal and evaluation of urge incontinence - You have been referred for Home health, they will call you to set up appointment if insurance approves and facility accepts you - You have been referred to [facility] wound care clinic. Call on Thursday for appointment -Follow up with home provider for ongoing diabetic wounds Questions or Concerns and Appointments If there are questions or concerns after discharge from the hospital, call Juliana Guzmán, Nurse Coordinator between 7am-3pm at [phone]. If it is after hours, weekends, and holidays please call [phone] and ask for the resident production operations manager for Emergency General Surgery. For appointments please call our General Surgery Clinic at [phone]. Medication requests should be made between the hours of 9:00 AM to 3:00 PM Thursday thru Thursday. Please note that based upon recent changes to [place] law related to prescribing opioid pain medications, our providers will not provide refills on controlled medications after your hospital discharge following a major surgery or trauma. KRS 218A.172, KRS 218A.205 & 201 KAR9:260. Outpatient Follow-Up Future Appointments Date Time Provider Department Center 03/21/2025 2:40 PM Laureano Jensen MD [facility] I Pertinent Physical Exam At Time of Discharge Physical Exam Constitutional: General: He is not in acute distress. Appearance: He is obese. He is not ill-appearing. Pulmonary: Effort: Pulmonary effort is normal. No respiratory distress. Abdominal: Palpations: Abdomen is soft. Tenderness: There is no abdominal tenderness. Genitourinary: Comments: Rios catheter intact Musculoskeletal: Comments: RLE cellulitis continues to improve. No appreciable purulent fluid during dressing changetoday, mostly hematoma. Skin: General: Skin is warm. Neurological: General: No focal deficit present. Mental Status: He is alert. Mental status is at baseline. Psychiatric: Mood and Affect: Mood normal. Discharge Disposition/Condition Disposition: Home Condition: Stable (s/sx potential problems absent or manageable) I spent >30 minutes of patient care and instruction time in preparation for this discharge. Management of diabetes not part of routine care Cosigned by Rian Robertson MD at 12/18/2024 10:24 AM EDT * Progress Notes - Amada Barrow RN - 12/16/2024 4:31 PM EDT Case Management Adult Initial Progress Note Gonzalo Russell 49 y.o. male CSN: [id number] Admission: 12/12/2024 10:28 PM Primary Problem: Abscess of groin, right Company Secretary reviewed chart and spoke with patient to complete this Initial Case Management Assessment. PCP: Malcolm Hayward APRN Emergency Contact: Extended Emergency Contact Information Primary Emergency Contact: Maggie Russell Relation: Spouse Preferred language: Cuban Master Dyer needed? No Insurance: Primary Visit Coverage Payer Plan Sponsor Code Group Number Group Name THIAGO DAS [employer]ADITIONAL/[place]/FED [facility] [id number] [place] Primary Visit Coverage Subscriber Subscriber ID Subscriber Name Subscriber N Subscriber Address [id number] GONZALO RUSSELL [id number] [address] [address] Secondary Visit Coverage Payer Plan Sponsor Code Group Number Group Name MEDICARE MEDICARE A & B Secondary Visit Coverage Subscriber Subscriber ID Subscriber Name Subscriber N Subscriber Address [id number] GONZALO RUSSELL [id number] [id number] Patient information: Lives with and daughter [address] [facility] Living Arrangements: Children, Spouse/Significant other (Lives with and daughter) Type of Residence: Private residence Primary Caregiver: Self Support System: Immediate family Daily Living Activities: Functional Status: Independent Smoker in the Home?: No Current DME: Equipment Currently Used at Home: canetari Anticipated Discharge Date: 12/18/2024 Patient's Discharge Goal: Patient/Family Anticipates Transition to: home with family Assistance Available at Discharge: Family Availability of Care Givers (#Hours): 24 hours Discharge Transport: Transportation Anticipated: family or friend will provide (Patient does not drive) Follow Up Transport: Transportation Needed to Follow up Appoinments: Family/Friend will Provide Home Health / Home Infusion / Outpatient Dialysis Services: NA Living Will/Advance Directive/Power of Physician Locums Urgent Care /Guardian: Unable to assess: No Have you reviewed your Advance Directive and is it valid for this stay?: Not applicable Advance Directive: Patient would not like information Information Provided on Healthcare Directives: No Pre-existing DNR/DNI Order: No Patient Requests Assistance: No Additional Comments: Per primary treatment team, patient is not medically ready to discharge at this time. and [facility] referrals were made for wound care follow-up. [facility] and [facility] are reviewing referrals. CM spoke with Dolly at [facility] who is reviewing referral and would likely be able to see patient on Thursday, 12/20. Dolly believes they will be able to accept patient, but could not confirm at this time. CM faxed referral to [facility] and left message for return phone call this date. CM also contacted [facility] (where pt has been previously), however the MD samuel sewell does not have appt until January 10, 2025. CM would need to call on Thursday to schedule appt. CM continues to follow and assist with discharge planning. Amada Barrow RN * Progress Notes - Alfonso Milton MD - 12/16/2024 9:05 AM EDT 12/16/24 Gonzalo Russell HPI 49M PMH notable for Afib on xarelto, morbid obesity, uncontrolled T2DM, AUD, QUINN, prior sleeve gastrectomy, and GERD who presented to [facility] as a direct admission following transfer from OSH due to c/fRLE NSTI vs abscess. 12/13: bedside incision and drainage, placed yonis/vessel loops (Augusto) Interval:NAEO. Glucose better controlled over last 24hrs, continuing to adjust per pharmacy. Wound dressing changed this morning without purulent fluid present. Cellulitis improving. Discussed with family plan for home changes BID. Edited by: Nato Kaiser MD at 12/16/2024 0905 Relevant review of systems was obtained as able and is negative unless stated above in HPI. Vital signs: Vitals: 12/16/24 0756 BP: 127/76 Pulse: 67 Resp: Temp: 36.6 ??C (97.8 ??F) SpO2: 96% Physical Exam Constitutional: General: He is not in acute distress. HENT: Head: Normocephalic. Mouth/Throat: Mouth: Mucous membranes are moist. Eyes: Extraocular Movements: Extraocular movements intact. Cardiovascular: Rate and Rhythm: Normal rate. Pulmonary: Effort: Pulmonary effort is normal. No respiratory distress. Abdominal: Palpations: Abdomen is soft. Tenderness: There is no abdominal tenderness. Musculoskeletal: Comments: RLE cellulitis continues to improve. No appreciable purulent fluid during dressing changetoday, mostly hematoma. Skin: General: Skin is warm. Neurological: General: No focal deficit present. Mental Status: He is alert. Mental status is at baseline. Psychiatric: Mood and Affect: Mood normal. Intake/Output Summary (Last 24 hours) at 12/16/2024 0908 Last data filed at 12/16/2024 0636 Gross per 24 hour Intake -- Output 5350 ml Net -5350 ml Lines/Drains/Tubes: Patient Lines/Drains/Airways Status Active Airway None Output by Drain (mL) 12/14/24 07 - 12/14/24 1859 12/14/24 190 - 12/15/24 0659 12/15/24699 - 12/15/24 1859 12/15/24 190 - 12/16/24 0659 12/16/24 07 - 12/16/24 0908 Requested LDAs do not have output data documented. Labs in last 18 hours: CBC WBC 4.08 Hb 9.9 (L) Plt 207 Hct 32.5 (L) ANC ?? INR ??, PTT ??, Anti-Xa ?? MCV 84 BMP Na 135 (L) Cl 97 BUN 7 Glu 301 (H) K 3.7 Co2 29 Cr 0.62 (L) Ca 8.9 iCa ?? Mg 1.7 (L), Phos 2.7 Lactate ?? LFT AST ?? AlkPhos ?? T Prot ?? ALK ?? Bili ?? Alb ?? D.Bili ?? Lab Trends: H/H Results from last 7 days Lab Units 12/16/24 0143 12/15/24 0648 12/14/24 0622 HEMOGLOBIN g/dL 9.9* 10.3* 10.7* HEMATOCRIT % 32.5* 33.7* 35.9* INR Cr Results from last 7 days Lab Units 12/16/24 0143 12/15/24 0437 12/14/24 0622 CREATININE mg/dL 0.62* 0.59* 0.65* Medications reviewed. Vital signs reviewed. Labs reviewed. Radiography reviewed. Assessment and Plan: Medical Problems and Relevant Plans Hospital Problems POA * (Principal) Abscess of groin, right Yes Uncontrolled type 2 diabetes mellitus with hyperglycemia, with long-term current use of insulin ([facility]) Not Applicable Morbid obesity with BMI of 60.0-69.9, adult ([facility]) Not Applicable Non-Hospital Problems Hypertension Other hyperlipidemia Type 2 diabetes Overview Signed 04/14/2022 4:39 PM by Provider, Administrative Regulatory Update April 2022 Allergic rhinitis Edema Microalbuminuria QUINN (obstructive sleep apnea) Tobacco abuse counseling Neuropathy Abnormal ECG Acute kidney injury ([facility]) Alcohol abuse Anxiety disorder Bilateral knee pain Bone pain Callus of foot CAP (community acquired pneumonia) Cellulitis Change of skin color Chest wall pain CHF (congestive heart failure) ([facility]) COPD [place]chronic obstructive pulmonary disease) [place] Decreased pedal pulses Dehydration Dependence on supplemental oxygen Depression Diabetic neuropathy [place] Dyspnea Edema of both lower extremities Epididymitis Gastroenteritis Hyperglycemia due to type 2 diabetes mellitus (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) S/P gastric sleeve procedure Sepsis [place] Diabetic ulcer of left foot associated with diabetes mellitus due to underlying condition, limited to breakdown of skin Smoker unmotivated to quit UTI (urinary tract infection) Tachycardia Plan: - Abx: zyvox/zosyn, transition to oral abx before d/c - BID dressing changes (AM by SGE PM by nursing) - A1c 10.9; DM education consult; transitioned to insulin gtt (standard) - BG management - CPAP nightly (do not DC NIV order) - Home vraylar -Restart home anticoagulation -MRSA swab TLD: Rios, PIV x2, yonis/vessel loop R groin Dispo: Home, pending clinical improvement Edited by: Nato Kaiser MD at 12/16/2024 0918 Alfonso Milton MD Cosigned by Leidy Hernandez MD at 12/16/2024 9:37 PM EDT Associated attestation - Leidy Hernandez MD - 12/16/2024 9:37 PM EDT I saw and evaluated the patient with the resident/fellow. I discussed the case with the resident/fellow and agree with the findings and plan as documented. Less erythema and no pus Cont wound care Leidy Hernandez MD, FACS marketing operations intern Trauma Acute Care Surgery * Assessment & Plan Note - Leidy Hernandez MD - 12/15/2024 3:33 PM EDT Associated Problem(s): Uncontrolled type 2 diabetes mellitus with hyperglycemia, with long-term current use of insulin ([facility]) Poorly controlled with A1C of >10 Ongoing monitoring and insulin adjustments for control Is a patient of our endocrine team * Assessment & Plan Note - Leidy Hernandez MD - 12/15/2024 3:32 PM EDT Associated Problem(s): Morbid obesity with BMI of 60.0-69.9, adult ([facility]) Discussions with patient and his about his super morbid obesity Has had gastric sleeve in past Provide support for weight loss efforts * Assessment & Plan Note - Leidy Hernandez MD - 12/15/2024 3:31 PM EDT Associated Problem(s): Abscess of groin, right I&D with yonis drain placement Washout daily and cont dressing changes * Progress Notes - Alfonso Milton MD - 12/15/2024 7:48 AM EDT 12/15/24 Gonzalo Blackman Drew HPI 49M PMH notable for Afib on xarelto, morbid obesity, uncontrolled T2DM, AUD, QUINN, prior sleeve gastrectomy, and GERD who presented to [facility] as a direct admission following transfer from OSH due to c/fRLE NSTI vs abscess. 12/13: bedside incision and drainage, placed yonis/vessel loops (Augusto) Interval: BG improved down to 166 last night. Wound dressing changed this morning without purulent fluid present. Cellulitis improving. Discussed his home psych meds and reglan. Edited by: Alfonso Milton MD at 12/15/2024 0748 Relevant review of systems was obtained as able and is negative unless stated above in HPI. Vital signs: Vitals: 12/15/24 0355 BP: (!) 159/85 Pulse: 62 Resp: Temp: 36.3 ??C (97.4 ??F) SpO2: 97% Physical Exam Constitutional: General: He is not in acute distress. HENT: Head: Normocephalic. Mouth/Throat: Mouth: Mucous membranes are moist. Eyes: Extraocular Movements: Extraocular movements intact. Cardiovascular: Rate and Rhythm: Normal rate. Pulmonary: Effort: Pulmonary effort is normal. No respiratory distress. Abdominal: Palpations: Abdomen is soft. Tenderness: There is no abdominal tenderness. Musculoskeletal: Comments: RLE cellulitis slightly improved from yesterday. No appreciable purulent fluid during dressing change today, mostly hematoma. Skin: General: Skin is warm. Neurological: General: No focal deficit present. Mental Status: He is alert. Mental status is at baseline. Psychiatric: Mood and Affect: Mood normal. Intake/Output Summary (Last 24 hours) at 12/15/2024 0748 Last data filed at 12/15/2024 0400 Gross per 24 hour Intake 990 ml Output 5400 ml Net -4410 ml Lines/Drains/Tubes: Patient Lines/Drains/Airways Status Active Airway None Output by Drain (mL) 12/13/24 0700 - 12/13/24 1859 12/13/24 1900 - 12/14/24 0659 12/14/24 0700 - 12/14/24 1859 12/14/24 1900 - 12/15/24 0659 12/15/24 0700 - 12/15/24 0748 Requested LDAs do not have output data documented. Labs in last 18 hours: CBC WBC 4.36 Hb 10.3 (L) Plt 216 Hct 33.7 (L) ANC ?? INR ??, PTT ??, Anti-Xa ?? MCV 82 BMP Na 137 Cl 96 (L) BUN 6 (L) Glu 199 (H) K 3.5 (L) Co2 29 Cr 0.59 (L) Ca 8.6 (L) iCa ?? Mg 1.8 (L), Phos 3.1 Lactate ?? LFT AST ?? AlkPhos ?? T Prot ?? ALK ?? Bili ?? Alb ?? D.Bili ?? Lab Trends: H/H Results from last 7 days Lab Units 12/15/24 0648 12/14/24 0622 12/12/24 2346 HEMOGLOBIN g/dL 10.3* 10.7* 11.4* HEMATOCRIT % 33.7* 35.9* 36.4* INR Cr Results from last 7 days Lab Units 12/15/24 0437 12/14/24 0622 12/12/24 2346 CREATININE mg/dL 0.59* 0.65* 0.60* Medications reviewed. Vital signs reviewed. Labs reviewed. Radiography reviewed. Assessment and Plan: Medical Problems and Relevant Plans Hospital Problems POA * (Principal) Abscess of groin, right Yes Uncontrolled type 2 diabetes mellitus with hyperglycemia, with long-term current use of insulin ([facility]) Not Applicable Morbid obesity with BMI of 60.0-69.9, adult ([facility]) Not Applicable Non-Hospital Problems Hypertension Other hyperlipidemia Type 2 diabetes Overview Signed 04/14/2022 4:39 PM by Provider, Administrative Regulatory Update April 2022 Allergic rhinitis Edema Microalbuminuria QUINN (obstructive sleep apnea) Tobacco abuse counseling Neuropathy Abnormal ECG Acute kidney injury ([facility]) Alcohol abuse Anxiety disorder Bilateral knee pain Bone pain Callus of foot CAP (community acquired pneumonia) Cellulitis Change of skin color Chest wall pain CHF (congestive heart failure) ([facility]) COPD (chronic obstructive pulmonary disease) ([facility]) Decreased pedal pulses Dehydration Dependence on supplemental oxygen Depression Diabetic neuropathy ([facility]) Dyspnea Edema of both lower extremities Epididymitis Gastroenteritis Hyperglycemia due to type 2 diabetes mellitus (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) S/P gastric sleeve procedure Sepsis ([facility]) Diabetic ulcer of left foot associated with diabetes mellitus due to underlying condition, limited to breakdown of skin Smoker unmotivated to quit UTI (urinary tract infection) Tachycardia Plan: - Abx: zyvox/zosyn - BID dressing changes (AM by SGE PM by nursing) - A1c 10.9; DM education consult; transitioned to insulin gtt (standard) - BG management - CPAP nightly (do not DC NIV order) - Stopping home reglan due to category X interaction with vraylar - Restarting home vraylar TLD: Rios, PIV x2, yonis/vessel loop R groin Dispo: Home, pending clinical improvement Edited by: Nato Kaiser MD at 12/15/2024 0751 Alfonso Milton MD Cosigned by Leidy Hernandez MD at 12/15/2024 3:35 PM EDT Associated attestation - Leidy Hernandez MD - 12/15/2024 3:35 PM EDT I saw and evaluated the patient with the resident/fellow. I discussed the case with the resident/fellow and agree with the findings and plan as documented. Leidy Hernandez MD, FACS marketing operations intern Trauma Acute Care Surgery * Care Plan - AleydaCyndi - 12/14/2024 7:38 PM EDT Problem: Adult Inpatient Plan of Care Goal: Plan of Care Review Outcome: Ongoing, Progressing Goal: Patient-Specific Goal (Individualized) Outcome: Ongoing, Progressing Goal: Absence of Hospital-Acquired Illness or Injury Outcome: Ongoing, Progressing Goal: Optimal Comfort and Wellbeing Outcome: Ongoing, Progressing Goal: Readiness for Transition of Care Outcome: Ongoing, Progressing Problem: Infection Goal: Absence of Infection Signs and Symptoms Outcome: Ongoing, Progressing Problem: Wound Goal: Improved Oral Intake Outcome: Ongoing, Progressing * Terri aRe PharmD - 12/14/2024 2:18 PM EDT Images from the original note were not included. Rivaroxaban - Video Understand that Rivaroxaban is an oral medication taken to break up blood clots caused by deep veinthrombosis or atrial fibrillation, and to keep the blood thin. Learn how to use and store Rivaroxaban and the possible side effects to be aware of. To view the video go to this web address: [email or web address] Or, scan this QR code with your smart phone ?? [facility] * Terri Rae PharmD - 12/14/2024 2:18 PM EDT Images from the original note were not included. [id number] Rivaroxaban Brand Name(s): Xarelto? This branded product is no longer on the market. Generic alternatives may be available. IMPORTANT WARNING: If you have atrial fibrillation (a condition in which the heart beats irregularly, increasing the chance of clots forming in the body, and possibly causing strokes) and are taking rivaroxaban to helpprevent strokes or serious blood clots, you are at a higher risk of having a stroke after you stop taking this medication. Do not stop taking rivaroxaban without talking to your doctor. Continue to take rivaroxaban even if you feel well. Be sure to refill your prescription before you run out of medication so that you will not miss any doses of rivaroxaban. If you need to stop taking rivaroxaban, your doctor may prescribe another anticoagulant (''blood thinner'') to help prevent a blood clot from forming and causing you to have a stroke. If you have epidural or spinal anesthesia or a spinal puncture while taking a 'blood thinner' such as rivaroxaban, you are at risk of having a blood clot form in or around your spine that could causeyou to become paralyzed. Tell your doctor if you have an epidural catheter that is left in your body or have or have ever had repeated epidural or spinal punctures, spinal deformity, or spinal surgery. Tell your doctor and pharmacist if you are taking medications that may cause bleeding including anticoagulants (blood thinners) such as warfarin (Jantoven), heparin, or other medications to treat or prevent blood clots and aspirin and other nonsteroidal anti-inflammatory drugs (NSAIDs) such as ibu profen (Advil, Motrin, others), indomethacin (Indocin), ketoprofen, and naproxen (Aleve, Anaprox, others). If you experience any of the following symptoms, call your doctor immediately: back pain, muscle weakness (especially in your legs and feet), numbness or tingling (especially in your legs), loss of control of your bowels or bladder, or inability to move your legs. Talk to your doctor about the risk of taking rivaroxaban. Your doctor or pharmacist will give you the oil paint shader's patient information sheet (Medication Guide) when you begin treatment with rivaroxaban and each time you refill your prescription. Read the information carefully and ask your doctor or pharmacist if you have any questions. You can also visit the Food and Drug Administration (FDA) website (https://www.fda.gov/downloads/Drugs/DrugSafety/IWP206027.pdf) or the oil paint shader's website to obtain the Medication Guide. WHY is this medicine prescribed? Rivaroxaban is used to treat deep vein thrombosis (DVT; a blood clot, usually in the leg) and pulmonary embolism (PE; a blood clot in the lung) in adults. Rivaroxaban is also used to prevent DVT and PE from happening again after initial treatment is completed in adults. It is also used to help prevent strokes or serious blood clots in adults who have atrial fibrillation (a condition in which the heart beats irregularly, increasing the chance of clots forming in the body, and possibly causing strokes) that is not caused by heart valve disease. Rivaroxaban is also used to prevent DVT and PE in adults who are having hip replacement or knee replacement surgery or in people who are hospitalized for serious illnesses and are at risk of developing a clot due to decreased ability to move around or other risk factors. It is also used along with aspirin to lower the risk of a heart attack, stroke, or in adults with coronary artery disease (narrowing of the blood vessels that supply blood t o the heart) or peripheral arterial disease (poor circulation in the blood vessels that supply blood to the arms and legs). Rivaroxaban is also used to treat and prevent DVT and PE from happening again in children and certain infants who have received at least 5 days of initial anticoagulation (blood thinner) treatment. It is also used to prevent DVT and PE after heart surgery in children 2 yearsof age or older who have congenital heart disease (abnormality in the heart that develops before ). Rivaroxaban is in a class of medications called factor Xa inhibitors. It works by blocking theaction of a certain natural substance that helps blood clots to form. HOW should this medicine be used? Rivaroxaban comes as a tablet and a suspension (liquid) to take by mouth. When rivaroxaban is used to treat DVT or PE in adults, it is usually taken with food twice daily for 21 days, then once dailywith food. When rivaroxaban is used to prevent DVT or PE in adults, it is usually taken once daily with or without food after at least 6 months of anticoagulation (blood thinner) treatment. When rivar oxaban is used to prevent a stroke in those who have atrial fibrillation, it is usually taken once daily with the evening meal. When rivaroxaban is taken to prevent DVT and PE after hip or knee replacement surgery, it is usually taken with or without food once daily. The first dose should be taken at least 6 to 10 hours after surgery. Rivaroxaban is usually taken for 35 days after a hip replacement surgery and for 12 days after knee replacement surgery. When rivaroxaban is taken to prevent DVT and PE in adults who are hospitalized for serious illnesses and are at risk of developing a clot dueto decreased ability to move around, it is usually taken with or without food once daily starting wh en you are in the hospital and then continuing for a total of 31 to 39 days. When rivaroxaban is taken along with aspirin in adults with coronary artery disease or peripheral arterial disease, it is usually taken twice daily with or without food. When rivaroxaban is used in children and infants to treat or prevent DVT or PE, it is usually given 1 to 3 times a day with food after at least 5 days of anticoagulation (blood thinner) treatment. When rivaroxaban is taken in children 2 years of age orolder who have congenital heart disease, it is usually given 1 to 3 times a day with or without food after heart surgery. Take rivaroxaban at around the same time(s) every day. Follow the directions on your prescription label carefully, and ask your doctor or pharmacist to explain any part you do not understand. Take rivaroxaban exactly as directed. Do not take more or less of it or take it more often than prescribed by your doctor. For adults, if you are unable to swallow the tablets, you can crush them and mix with applesauce. Swallow the mixture right after you prepare it. Rivaroxaban can also be given in certain types of feeding tubes. Ask your doctor if you should take this medication in your feeding tube. Follow your doctor's directions carefully. For children taking rivaroxaban tablets, swallow the tablets whole; do not split them. If you or your child vomits or spits up within 30 minutes of taking a dose of rivaroxaban oral suspension, take another full dose as soon as possible after the vomiting episode and then take your next dose at the regularly scheduled time. To measure rivaroxaban oral suspension, follow these steps: ? Use the oral syringe that came with the medication for measuring the liquid. Do not use a household spoon to measure your dose. Household teaspoons are not accurate measuring devices, and you may receive too much medication or not enough medication if you measure your dose with a household teaspoon. ? Shake the bottle gently for 10 seconds before use. If there are remaining granules at the bottom of the bottle, shake gently again for another 10 seconds. Do not shake the bottle to avoid foaming. ? Remove the bottle cap by pushing down on the cap, then turn it counterclockwise (to the left). Donot remove the adaptor from the top of the bottle. ? Push all the air from the oral syringe into the bottle by pushing down on the plunger. Then insert the open tip of the oral syringe into the adaptor. ? While holding the oral syringe in place, carefully turn the bottle upside down. Draw some of the medication out of the bottle into the oral syringe by pulling back on the plunger. Be careful not topull the plunger all the way out. ? You will see a small amount of air near the end of the plunger in the oral syringe. Push on the plunger so the medication goes back into the bottle and the air disappears. Pull back on the plunger to draw your correct medication dose into the oral syringe. ? While still holding the oral syringe in the bottle, carefully turn the bottle upwards so the syringe is on top. Remove the oral syringe from the bottle neck adaptor without pushing on the plunger. Take the medication right after you draw it into the oral syringe. ? Place the open tip of the oral syringe into one side of your child's mouth and push on the plunger slowly as the liquid goes into your child's mouth; have your child swallow the medication slowly as it goes into their mouth. ? If your dose is more than 5 mL, you will need to use the same syringe more than one time and you will need to repeat steps 3 through 7. ? Leave the adaptor in the bottle. Place the cap back on the bottle and turn it clockwise (to the right) to tighten it. ? Rinse the oral syringe with clean tap water and allow it to air dry after each use. Continue to take rivaroxaban even if you feel well. Do not stop taking rivaroxaban without talking to your doctor. If you stop taking rivaroxaban, your risk of a blood clot may increase. Are there OTHER USES for this medicine? This medication may be prescribed for other uses; ask your doctor or pharmacist for more information. What SPECIAL PRECAUTIONS should I follow? Before taking rivaroxaban, ? tell your doctor and pharmacist if you are allergic to rivaroxaban, any other medications, or anyof the ingredients in rivaroxaban tablets. Ask your pharmacist for a list of the ingredients. ? tell your doctor and pharmacist what other prescription and nonprescription medications, vitamins, and nutritional supplements you are taking or plan to take. Your doctor may need to change the doses of your medications or monitor you carefully for side effects. ? tell your doctor what herbal products you are taking, especially Ricco's wort. ? tell your doctor if you have an artificial heart valve or recently noticed any unusual bruising or bleeding. Your doctor will probably tell you not to take rivaroxaban. ? tell your doctor if you have or have ever had any type of bleeding problem, antiphospholipid syndrome (APS; a condition that causes blood clots), bleeding or an ulcer in your stomach or intestine, or kidney or liver disease. ? tell your doctor if you are , plan to become , or are . If you become while taking rivaroxaban, call your doctor. ? talk to your doctor about the risks and benefits of taking rivaroxaban if you are 75 years of ageor older. ? if you are having surgery, including dental surgery, tell the doctor or dentist that you are taking rivaroxaban. Your doctor may tell you to stop taking rivaroxaban before the surgery or procedure.Your doctor will tell you when you should start taking rivaroxaban again after your surgery. What SPECIAL DIETARY instructions should I follow? Unless your doctor tells you otherwise, continue your normal diet. What should I do IF I FORGET to take a dose? Adults: ? If you take rivaroxaban once a day, take the missed dose as soon as you remember it on that day. Resume your regular dosing schedule the next day. ? If you take rivaroxaban twice a day for the treatment of a DVT or PE, take the missed dose as soon as you remember it on that day. You may take 2 doses at the same time to make up for the missed dose. Resume your regular dosing schedule on the next day. ? If you have CAD or PAD and take rivaroxaban twice a day to reduce the risk of DVT and PE and payam dose, just continue your regular dosing schedule. Do not take a double dose to make up for a missed one. Infants and children: ? If you take rivaroxaban once a day, take the missed dose as soon as you remember it on that day. Resume your regular dosing schedule the next day. Do not take a double dose to make up for a missed one. ? If you take rivaroxaban twice a day, take the missed morning dose as soon as you remember it on that day. You may take 2 doses at the same time in the evening to make up for the missed morning dose. Resume your regular dosing schedule on the next day ? If you take rivaroxaban three times a day and miss a dose, skip the missed dose and continue yourregular dosing schedule. Do not take a double dose to make up for a missed one. What SIDE EFFECTS can this medicine cause? Some side effects can be serious. If you experience any of these symptoms or those listed in the IMPORTANT WARNING section, call your doctor immediately: ? bloody, black, or tarry stools ? pink, or brown urine ? coughing up or vomiting blood or material that looks like coffee grounds ? frequent nosebleeds ? bleeding from your gums ? heavy menstrual bleeding ? weakness ? tiredness ? headache ? dizziness or fainting ? blurred vision ? pain in arm or leg ? rash ? itching ? difficulty breathing or swallowing ? hives ? pain or swelling at wound sites ? decreased urination ? swelling in your legs, feet, or ankles Rivaroxaban prevents blood from clotting normally so it may take longer than usual for you to stop bleeding if you are cut or injured. This medication may also cause you to bruise or bleed more easily. Call your doctor right away if bleeding or bruising is unusual. Rivaroxaban may cause other side effects. Call your doctor if you have any unusual problems while taking this medication. If you experience a serious side effect, you or your doctor may send a report to the Food and Drug Administration's (FDA) MedWatch Adverse Event Reporting program online (https://www.fda.gov/Safety/MedWatch) or by phone ( ). What should I know about STORAGE and DISPOSAL of this medication? Keep this medication in the container it came in, tightly closed, and out of reach of children. Store it at room temperature and away from excess heat and moisture (not in the bathroom). It is important to keep all medication out of sight and reach of children as many containers (such as weekly pill minders and those for eye drops, creams, patches, and inhalers) are not child-resistant and young children can open them easily. To protect young children from poisoning, always lock safety caps and immediately place the medication in a safe location - one that is up and away and out of their sight and reach. https://www.YouFastUnlockndRankingHero.org Unneeded medications should be disposed of in special ways to ensure that pets, children, and otherpeople cannot consume them. However, you should not flush this medication down the toilet. Instead,the best way to dispose of your medication is through a medicine take-back program. Talk to your pharmacist or contact your local garbage/recycling department to learn about take-back programs in your community. See the FDA's Safe Disposal of Medicines website (https://goo.gl/c4Rm4p) for more information if you do not have access to a take-back program. What should I do in case of OVERDOSE? In case of overdose, call the poison control helpline at . Information is also available online at https://www.poisonhelp.org/help. If the victim has collapsed, had a seizure, has trouble breathing, or can't be awakened, immediately call emergency services at 501. Symptoms of overdose may include the following: ? unusual bleeding or bruising ? bloody, black, or tarry stools ? blood in urine ? coughing up or vomiting blood or material that looks like coffee grounds What OTHER INFORMATION should I know? Keep all appointments with your doctor and the laboratory. Your doctor may order certain lab tests to check your body's response to rivaroxaban. Do not let anyone else take your medication. Your prescription is probably not refillable. It is important for you to keep a written list of all of the prescription and nonprescription ([id number]) medicines you are taking, as well as any products such as vitamins, minerals, or otherdietary supplements. You should bring this list with you each time you visit a doctor or if you areadmitted to a hospital. It is also important information to carry with you in case of emergencies. This report on medications is for your information only, and is not considered individual patient advice. Because of the changing nature of drug information, please consult your physician or pharmacist about specific clinical use. The [employer] represents that the information provided hereunder was formulated with a reasonable standard of care, and in conformity with professional standards in the field. The [employer] makes no representations or warranties, express or implied, including, but not limited to, any implied warranty of merchantability and/or fitness for a particular purpose, with respect to such information and specifically disclaims all such warranties. Users are advised that decisions regarding drug therapy are complex medical decisions requiring the independent, informed decision of an appropriate health congregational care pastor, and the information is provided for informational purposes only. The entire monograph for a drug should be reviewed for a thorough understanding of the drug's actions, uses and side effects. The [employer] does not endorse or recommend the use of any drug.The information is not a substitute for medical care. AHFS?? Patient Medication Information?. ?? Copyright, 2023. The [employer]??, [address], [address], [place], [place]. All Rights Reserved. Duplication for commercial use must be authorized by [facility]. Selected Revisions: October 25, 2022. AHFS?? Patient Medication Information?. ?? Copyright, 2024 * Ruy Baires - Terri Ontiveros PharmD - 12/14/2024 2:18 PM EDT Images from the original note were not included. Xarelto - Video Understand that Xarelto is an oral medication taken to break up blood clots caused by deep vein thrombosis or atrial fibrillation, and to keep the blood thin. Learn how to use and store Xarelto and the possible side effects to be aware of. To view the video go to this web address: [email or web address] Or, scan this QR code with your smart phone ?? [facility] * Progress Notes - Alfonso Milton MD - 12/14/2024 11:48 AM EDT 12/14/24 Gonzalo Russell HPI 49 yo male with PMHx notable for Afib on xarelto, morbid obesity, uncontrolled T2DM, AUD, QUINN, prior sleeve gastrectomy, and GERD who presented to [facility] as a direct admission following transfer from OSH due to c/f RLE NSTI vs abscess. 12/13: bedside incision and drainage, placed yonis/vessel loops (Augusto) Interval: HgA1C 10.9. 1803 BG 243, received 10u lispro (6 scheduled+4 correction) --> 2030 BG 323. Ordered insulin gtt per pharm rec, discussed w/ endo here. Can continue glucose management per usinpatient and will FU w/ endo outpatient. Wound dressing changed this morning with significant purulent fluid present. Cellulitis improving. Edited by: Alfonso Milton MD at 12/14/2024 1148 Relevant review of systems was obtained as able and is negative unless stated above in HPI. Vital signs: Vitals: 12/14/24 1104 BP: 132/81 Pulse: 61 Resp: Temp: 36.4 ??C (97.5 ??F) SpO2: 97% Physical Exam Constitutional: General: He is not in acute distress. HENT: Head: Normocephalic. Mouth/Throat: Mouth: Mucous membranes are moist. Eyes: Extraocular Movements: Extraocular movements intact. Cardiovascular: Rate and Rhythm: Normal rate. Pulmonary: Effort: Pulmonary effort is normal. No respiratory distress. Abdominal: Palpations: Abdomen is soft. Tenderness: There is no abdominal tenderness. Musculoskeletal: Comments: RLE cellulitis slightly improved from yesterday. Dressings saturated w/ purulent appearing fluid. Suctioned out some purulent appearing fluid as well during dressing change today. Skin: General: Skin is warm. Neurological: General: No focal deficit present. Mental Status: He is alert. Mental status is at baseline. Psychiatric: Mood and Affect: Mood normal. Intake/Output Summary (Last 24 hours) at 12/14/2024 1148 Last data filed at 12/14/2024 0928 Gross per 24 hour Intake 3928.75 ml Output 2600 ml Net 1328.75 ml Lines/Drains/Tubes: Patient Lines/Drains/Airways Status Active Airway None Output by Drain (mL) 12/12/24 0700 - 12/12/24 1859 12/12/24 190 - 12/13/24 0659 12/13/24 07 - 12/13/24 1859 12/13/24 1900 - 12/14/24 0659 12/14/24 07 - 12/14/24 1148 Requested LDAs do not have output data documented. Labs in last 18 hours: CBC WBC 5.47 Hb 10.7 (L) Plt 228 Hct 35.9 (L) ANC ?? INR ??, PTT ??, Anti-Xa ?? MCV 84 BMP Na 136 Cl 95 (L) BUN 7 Glu 191 (H) K 4.6 Co2 32 (H) Cr 0.65 (L) Ca 8.8 (L) iCa ?? Mg ??, Phos 3.8 Lactate ?? LFT AST ?? AlkPhos ?? T Prot ?? ALK ?? Bili ?? Alb ?? D.Bili ?? Lab Trends: H/H Results from last 7 days Lab Units 12/14/24 0622 12/12/24 2346 HEMOGLOBIN g/dL 10.7* 11.4* HEMATOCRIT % 35.9* 36.4* INR Cr Results from last 7 days Lab Units 12/14/24 0622 12/12/24 2346 CREATININE mg/dL 0.65* 0.60* Medications reviewed. Vital signs reviewed. Labs reviewed. Radiography reviewed. Assessment and Plan: Medical Problems and Relevant Plans Hospital Problems POA * (Principal) Abscess of groin, right Yes Non-Hospital Problems Diabetes mellitus type 2, uncontrolled Morbid obesity with BMI of 60.0-69.9, adult ([facility]) Hypertension Other hyperlipidemia Type 2 diabetes Overview Signed 04/14/2022 4:39 PM by Provider, Administrative Regulatory Update April 2022 Allergic rhinitis Edema Microalbuminuria QUINN (obstructive sleep apnea) Tobacco abuse counseling Neuropathy Abnormal ECG Acute kidney injury ([facility]) Alcohol abuse Anxiety disorder Bilateral knee pain Bone pain Callus of foot CAP (community acquired pneumonia) Cellulitis Change of skin color Chest wall pain CHF (congestive heart failure) ([facility]) COPD (chronic obstructive pulmonary disease) ([facility]) Decreased pedal pulses Dehydration Dependence on supplemental oxygen Depression Diabetic neuropathy ([facility]) Dyspnea Edema of both lower extremities Epididymitis Gastroenteritis Hyperglycemia due to type 2 diabetes mellitus ([facility]) Insomnia Left lower lobe pneumonia Lower back pain Lumbar radiculopathy Mood swings Nausea Noncompliance Numbness and tingling of both legs Onychodystrophy Onychomycosis Open wound of second toe of left foot Palpitations Atrial fibrillation with rapid ventricular response (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) S/P gastric sleeve procedure Sepsis ([facility]) Diabetic ulcer of left foot associated with diabetes mellitus due to underlying condition, limited to breakdown of skin Smoker unmotivated to quit UTI (urinary tract infection) Tachycardia Plan: [x] endocrinology consult 6/4 am - Abx: zyvox/zosyn - BID dressing changes (AM by [facility] PM by nursing) - A1c 10.9; DM education consult; transitioned to insulin gtt (standard) - BG management - CPAP nightly (do not DC NIV order) -Home meds restarted TLD: Rios, PIV x2, yonis/vessel loop R groin Dispo: Home, pending clinical improvement Edited by: Alfonso Milton MD at 12/14/2024 1148 Alfonso Milton MD Cosigned by Leidy Hernandez MD at 12/14/2024 8:31 PM EDT Associated attestation - Leidy Hernandez MD - 12/14/2024 8:31 PM EDT I discussed the case with the resident/fellow and agree with the findings and plan as documented. * Consults - Julianne Salguero RD - 12/14/2024 8:07 AM EDT Adult Nutrition Evaluation Note Gonzalo Russell 49 y.o. male CSN: [id number] Room/Bed 219/219A Nutrition evaluation type: assessment Reason for evaluation: nurse consult Hospital course: 49 yo M admitted with R thigh abscess, s/p I&D at bedside. On NC and PO diet Past medical/ surgical history: obesity, afib, DM, GERD, AUD, grzegorz, gastric sleeve, CHF, COPD Social history: Additional comments: Vitals and Basic Assessment: BP: (!) 144/96 Temp: 36.4 ??C (97.5 ??F) Oxygen Therapy: Supplemental oxygen O2 Delivery Method: Nasal cannula Shelley Coma Scale Score: 15 Miguel Ángel Scale Score: 16 Most Recent BM Date: 12/13/24 GI Symptoms: None Edema: Right lower extremity, Left lower extremity, Perineal Allergies: NFKA Medications: Current Scheduled Medications[1] Insulin at 6.7 units/hr Labs: Labs in last 18 hours CBC WBC 5.47 Hb 10.7 (L) Plt 228 Hct 35.9 (L) ANC ?? INR ??, PTT ??, Anti-Xa ?? BMP Na 136 Cl 95 (L) BUN 7 Glu 191 (H) K 4.6 Co2 32 (H) Cr 0.65 (L) Ca 8.8 (L) iCa ?? Mg ??, Phos 3.8 Lactate ?? LFT AST ?? AlkPhos ?? T Prot ?? ALK ?? Bili ?? Alb ?? D.Bili ?? A1c 10.9 Anthropometrics: Height: 182.9 cm (6' 0.01 ) Weight: (!) 256 kg (564 lb 6 oz) BMI (Calculated): 76.53 Weight Evaluation: Extreme Obesity (BMI > 40) [place] Body Weight (kg): 80.9 Percent [place] Body Weight: 316 Adjusted Body Weight (kg): 124.6 Estimated Needs: Kcal/ K Kcal Provided: 2500 Kcal Needs Based On: Adjusted weight Gm Protein/ Kg : 1.2 Protein Provided: 150 Protein Needs Based On: Adjusted weight Metabolic Cart Study Results: Current Nutrition Intake: Diet Order: Adult Diet Diet Texture: Regular Adult Carbohydrate Restriction: Consistent CHO 2 ([id number] Steven, 80 g/meal) Percent Meals Eaten (%): 50-75% Diet Experience and Nutrition History: Diet Education Provided: Will monitor Pertinent home medications: Mandaen needs: Nutrition Focused Physical Exam: Physical exam performed on (date): Assessment of Malnutrition: Nutrition Problem: Increased nutrient needs kcal, protein related to s/p I&D of abscess as evidenced by increased demand for wound healing. Status of Nutrition Diagnosis: New Nutrition Interventions and Recommendations: Continue current diet order, record intake Ordered 1 packet Kyree BID History of gastric sleeve; start daily multivitamin Nutrition Monitoring and Goals: PO intake >50% meals Acuity Level: [address] [1] atorvastatin, 40 mg, Oral, Daily gabapentin, 600 mg, Oral, TID heparin (porcine), 7,500 Units, Subcutaneous, q8h linezolid, 600 mg, Intravenous, q8h metoclopramide, 10 mg, Oral, 4x daily mupirocin, 1 Application, Each Nostril, BID pantoprazole, 40 mg, Oral, BID AC piperacillin-tazobactam, 4.5 g, Intravenous, q6h Insert peripheral IV, , , Once AND Saline lock IV, , , Once AND sodium chloride, 10 mL, Intravenous, q12h AND sodium chloride, 10 mL, Intravenous, PRN traZODone, 50 mg, Oral, Nightly venlafaxine XR, 150 mg, Oral, Daily * Care Plan - Annmarie Pruett - 12/14/2024 4:39 AM EDT Problem: Adult Inpatient Plan of Care Goal: Plan of Care Review Outcome: Ongoing, Progressing Flowsheets (Taken 12/14/2024 0433) Progress: improving Plan of Care Reviewed With: spouse patient Goal: Patient-Specific Goal (Individualized) Outcome: Ongoing, Progressing Goal: Absence of Hospital-Acquired Illness or Injury Outcome: Ongoing, Progressing Goal: Optimal Comfort and Wellbeing Outcome: Ongoing, Progressing Goal: Readiness for Transition of Care Outcome: Ongoing, Progressing Problem: Infection Goal: Absence of Infection Signs and Symptoms Outcome: Ongoing, Progressing * Care Plan - Alba Alvarez RN - 12/13/2024 5:12 PM EDT Problem: Adult Inpatient Plan of Care Goal: Plan of Care Review Outcome: Ongoing, Progressing Goal: Patient-Specific Goal (Individualized) Outcome: Ongoing, Progressing Goal: Absence of Hospital-Acquired Illness or Injury Outcome: Ongoing, Progressing Goal: Optimal Comfort and Wellbeing Outcome: Ongoing, Progressing Goal: Readiness for Transition of Care Outcome: Ongoing, Progressing Problem: Infection Goal: Absence of Infection Signs and Symptoms Outcome: Ongoing, Progressing * Progress Notes - Amada Barrow RN - 12/13/2024 3:07 PM EDT Case Management Adult Progress Note Gonzalo Russell 49 y.o. male CSN: [id number] Admission: 12/12/2024 10:28 PM Primary Problem: Abscess of groin, right Per primary treatment team, patient is not medically ready to discharge at this time. CM continues to follow for discharge needs. Amada Barrow RN * Hospital Course - Rachael Berrios APRN - 12/13/2024 3:01 PM EDT Chief Complaint: Right groin/thigh pain Gonzalo Russell is a 49 y.o. male with PMHx significant for morbid obesity (BMI >70), Afib (on xarelto), T2DM, GERD, AUD (in recovery), cholecystectomy, prior bariatric surgery, and QUINN who presented to the [facility] on 12/12/2024 as a direct admission due to c/f NSTI vs abscess following transfer from OSH where he presented with several days of pain localized to his proximal, medial thigh, fe stanton to 101F, and WBC 10k with lactate >3. Patient was unable to undergo cross sectional imaging w/ CT at OSH due to his waist circumference, although US of right medial thigh demonstrated phlegmonin this area. Patient was treated with IV clindamycin, linezolid, and zosyn prior to transfer. On arrival he is HDS and afebrile with initial labs unremarkable. Copied from admission H&P. 12/13: bedside incision and drainage, placed yonis/vessel loops (Augusto) Follow up with [facility] clinic for wound check Follow up with urology for rios removal Follow up with PCP within one week after discharge for post hospitalization visit. At the time of discharge the patient was hemodynamically stable, tolerating PO, voiding spontaneously, normal bowel function, mobilizing appropriately, with their pain controlled with PO medication. At this time, the patient has obtained the maximum benefit from the present hospital stay, and so will be discharged to home. * Progress Notes - Holly Fowler RN - 12/13/2024 2:26 PM EDT Images from the original note were not included. Wound Care Consult Visit Date: 12/13/2024 Patient Name: Gonzalo Russell Date of : 1975 Admit Date: 12/12/2024 Reason for Consult: IP Wound Orders (From admission, onward) Start Ordered 12/13/24 0405 Wound ostomy eval and treat Once Comments: Pt has several wounds. Pictures are in. Rt groin abscess, Rt bottom of foot surgical wound, back of left heel wound, Rt outer aspect of funk wound. Question Answer Comment Reason for consult: Wound/pressure injury 12/13/24 0406 Wound History: DM last A1C 10.9. Diabetic ulcers with history of treatment Wound Assessment: Wound 12/12/24 Diabetic Ulcer Foot Right;Other (Comment) (Active) Date First Assessed: 12/12/24 Present on Original Admission: Yes Primary Wound Type: Diabetic UlcerLocation: Foot Wound Location Orientation: (c) Right;Other (Comment) Wound Description (Comments): round pink and red wound bed Assessments 12/13/2024 11:11 AM Wound Image Right lateral foot with oval wound with pink granulating wound base with yellow film. No sign of infection. Cleansed and placed polymem and covaderm. At home they have been dressing with mupirocin ointment and a silver dressing. Recommend switching to polymem at this time to encourage epithelialization. They have another follow up appointment in a couple weeks. State there were plans for him to wear a special shoe but he hasn't been feeling well enough to ambulate much. Wound Assessment [place];Granulation Wound Length (cm) 4.4 cm Wound Width (cm) 3.3 cm Wound Surface Area (cm^2) 11.4 cm^2 Treatments Cleansed;Saline Dressing Foam;Dry dressing (polymem and covaderm) Dressing Changed Changed State of Healing Fully granulated Non-staged Wound Description Full thickness Active Orders Date Order Priority Status Authorizing Provider 12/13/24 3064 Apply/Change Wound Dressing 2 Wounds Associated Routine Active Leidy Hernandez MD - Dressing Type: Other Dressings - Other: Other (Comment) - Other dressing (comment):: Right lateral foot and left heel - daily, gently cleanse with saline. Cover with polymem and secure with dry dressing or roll gauze. Change daily. Wound 12/12/24 Traumatic Skin Tear Pretibial Right (Active) Date First Assessed: 12/12/24 Present on Original Admission: Yes Primary Wound Type: Traumatic Secondary Wound Type - Traumatic: Skin Tear Location: Pretibial Wound Location Orientation: Right Assessments 12/13/2024 11:19 AM Wound Image Right leg with dry denuded area. Leg with red hyperpigmentation from calf to ankle consistent with venous insufficiency. Appeared less saturated in person on visual inspection. Patient denies new pain or worsening edema. Wound Assessment Dry;Red;Denuded [place]-Wound Assessment Hyperpigmented;Edema Dressing Open to air Active Orders Date Order Priority Status Authorizing Provider 12/13/24 1426 Apply/Change Wound Dressing Right Pretibial Traumatic Skin Tear Routine Active Leidy Hernandez MD - Dressing Type: Other Dressings - Other: Other (Comment) - Other dressing (comment):: Right distal leg - open to air if dry/scabbed, if open and weeping, cleanse and apply polymem and dry cover dressing/gauze wrap changing daily. Wound 12/12/24 Diabetic Ulcer Heel Left (Active) Date First Assessed: 12/12/24 Present on Original Admission: Yes Primary Wound Type: (c) Diabetic Ulcer Location: Heel Wound Location Orientation: Left Assessments 12/13/2024 11:09 AM Wound Image Left heel with small linear wound, referenced as a fissure on prior clinical documentation. Appearsto have evolved to small full thickness wound, no tunneling or undermining. Thickened skin surrounding. Cleansed and placed polymem and covaderm. Wound Assessment [place];White;Fibrinous Wound Length (cm) 0.4 cm Wound Width (cm) 0.8 cm Wound Surface Area (cm^2) 0.25 cm^2 Treatments Cleansed;Saline Dressing Foam;Dry dressing (polymem and covaderm) Non-staged Wound Description Full thickness Active Orders Date Order Priority Status Authorizing Provider 12/13/24 1427 Apply/Change Wound Dressing 2 Wounds Associated Routine Active Leidy Hernandez MD - Dressing Type: Other Dressings - Other: Other (Comment) - Other dressing (comment):: Right lateral foot and left heel - daily, gently cleanse with saline. Cover with polymem and secure with dry dressing or roll gauze. Change daily. Left groin - defer to primary team surgery, s/p I&D with drains placed. Wound Team Plan: Wound care will follow up at regular intervals while inpatient; bedside nursing tofollow wound care recommendations as ordered and please re- consult sooner for new changes or concerns prior to follow up. Holly Fowler RN 12/13/2024 2:26 PM * Care Plan - Cyndi Maynard - 12/13/2024 5:12 AM EDT Problem: Adult Inpatient Plan of Care Goal: Plan of Care Review Outcome: Ongoing, Progressing Goal: Patient-Specific Goal (Individualized) Outcome: Ongoing, Progressing Goal: Absence of Hospital-Acquired Illness or Injury Outcome: Ongoing, Progressing Goal: Optimal Comfort and Wellbeing Outcome: Ongoing, Progressing Goal: Readiness for Transition of Care Outcome: Ongoing, Progressing Problem: Infection Goal: Absence of Infection Signs and Symptoms Outcome: Ongoing, Progressing * Procedures - Kofi Zamora MD - 12/13/2024 12:50 AM EDTAssociated Order(s): Incision and Drainage Post-Procedure Diagnose(s): Abscess of groin, right Incision and Drainage Performed by: Kofi Zamoar MD Authorized by: Nicole Casas MD Consent: Consent obtained: Written Consent given by: Patient Risks, benefits, and alternatives were discussed: yes Risks discussed: Bleeding, incomplete drainage and infection Alternatives discussed: No treatment and observation [place] protocol: Procedure explained and questions answered to patient or proxy's satisfaction: yes Required blood products, implants, devices, and special equipment available: yes Attending Supervision?: yes Location: Type: Abscess Location: Lower extremity Lower extremity location: Leg Leg location: R upper leg Pre-procedure details: Skin preparation: Povidone-iodine Sedation: Sedation type: Moderate sedation Anesthesia: Anesthesia method: Local infiltration Local anesthetic: Lidocaine 1% w/o epi Procedure type: Complexity: Complex Procedure details: Ultrasound guidance: no Needle aspiration: no Incision types: Stab incision and single straight (Spontaneous drainage sites x3 were incised to increase size) Incision depth: Subcutaneous Wound management: Probed and deloculated, extensive cleaning and debrided Drainage: Bloody and purulent Drainage amount: Copious Wound treatment: Drain placed Packing materials: Vessel loops ([place]; kerlix) Post-procedure details: Procedure completion: Tolerated well, no immediate complications Cosigned by Nicole Casas MD at 12/13/2024 9:14 AM EDT Associated attestation - Nicole Casas MD - 12/13/2024 9:14 AM EDT I was present for the entirety of the procedure(s). * H&P - Ja Cheema MD - 12/13/2024 12:08 AM EDT Images from the original note were not included. [facility] Department of Surgery Division of Acute Care / Emergency General Surgery History & Physical Note Subjective History of Present Illness: Chief Complaint: Right groin/thigh pain Gonzalo Russell is a 49 y.o. male with PMHx significant for morbid obesity (BMI >70), Afib (on xarelto), T2DM, GERD, AUD (in recovery), cholecystectomy, prior bariatric surgery, and QUINN who presented to the [facility] on 12/12/2024 as a direct admission due to c/f NSTI vs abscess following transfer from OSH where he presented with several days of pain localized to his proximal, medial thigh, fe stanton to 101F, and WBC 10k with lactate >3. Patient was unable to undergo cross sectional imaging w/ CT at OSH due to his waist circumference, although US of right medial thigh demonstrated phlegmonin this area. Patient was treated with IV clindamycin, linezolid, and zosyn prior to transfer. On arrival he is HDS and afebrile with initial labs unremarkable. Review of Systems: Relevant review of systems was obtained as able and is negative unless stated above in HPI. History Obtained From: Patient Past Medical History: Past Medical History[1] Allergies And Reactions: Allergies[2] Past Surgical History: Surgical History[3] Family Medical History: Family History[4] Reviewed and Non-contributory Social History: Social History Socioeconomic History Marital status: Spouse name: Not on file Number of children: Not on file Years of education: Not on file Highest education level: Not on file Occupational History Not on file Tobacco Use Smoking status: Former Types: Cigarettes Smokeless tobacco: Current Types: Snuff Tobacco comments: 1 can daily. Vaping Use Vaping status: Never Used Substance and Sexual Activity Alcohol use: Not Currently Drug use: No Comment: Drug use: No illicit drug use Sexual activity: Not on file Other Topics Concern Not on file Social History Narrative Marital Status: Social Drivers of Health Financial Resource Strain: Not on file Food Insecurity: Not on file Transportation Needs: Not on file Physical Activity: Not on file Stress: Not on file Social Connections: Unknown (04/24/2023) Received from [facility] Family and Community Support Help with Day-to-Day Activities: Not on file Lonely or Isolated: Not on file Intimate Partner Violence: Unknown (04/24/2023) Received from [facility] Abuse Screen Unsafe at Home or Work/School: Not on file Feels Threatened by Someone?: Not on file Does Anyone Keep You from Contacting Others or Doint Things Outside the Home?: Not on file Physical Sign of Abuse Present: Not on file Housing Stability: Unknown (04/24/2023) Received from [facility] Housing Stability Current Living Arrangements: Not on file Potentially Unsafe Housing Conditions: Not on file Immunizations: Immunization History Administered Date(s) Administered Moderna COVID-19 Vaccine (Case Operator) 12+ years 01/25/2021, 02/22/2021 Pneumococcal Conjugate PCV 13 12/24/2016 I have updated and confirmed the past medical, surgical, family and social history. Home Medications: Prior to Admission medications Medication Sig Start Date End Date Taking? Authorizing Provider atorvastatin (Lipitor) 40 MG tablet Take by mouth 1 (one) time each day. 05/10/18 Todd Alegre MD bisoprolol (Zebeta) 5 MG tablet 01/17/21 Todd Alegre MD dilTIAZem CD (Cardizem CD) 120 MG 24 hr capsule Take 1 capsule (120 mg) by mouth daily. Todd Alegre MD doxycycline (Adoxa) 100 MG tablet Take 1 tablet (100 mg) by mouth 2 (two) times a day. Take with a full glass of water and do not lie down for at least 30 minutes after Todd Alegre MD ergocalciferol 1.25 MG (26816 UT) capsule 01/11/21 Todd Alegre MD furosemide (Lasix) 40 MG tablet Take by mouth 1 (one) time each day. Patient not taking: Reported on 09/13/2024 05/10/18 Todd Alegre MD gabapentin (Neurontin) 600 MG tablet 09/05/21 Todd Alegre MD HYDROcodone-acetaminophen ([place]) 10-325 MG tablet 12/27/20 Todd Alegre MD insulin aspart protamine-insulin aspart (NovoLOG Mix 70-30) (70-30) 100 UNIT/ML injection vial Inject 80 units before each meal 3 times per day titrate as instructed MDD 260 07/22/24 Sommer Archer APRN insulin syringe-needle U-100 (B-D INS SYR ULTRAFINE 1CC/30G) 30G X 1/2 1 ML misc Use to inject 3 times daily as directed 09/20/24 Divine Archer APRN lisinopril 10 MG tablet Take 1 tablet (10 mg) by mouth 1 (one) time each day. Patient not taking: Reported on 09/13/2024 Todd Alegre MD LORazepam (Ativan) 1 MG tablet Take by mouth if needed. 12/17/16 Todd Alegre MD meloxicam (Mobic) 7.5 MG tablet Take 1 tablet (7.5 mg) by mouth daily. Todd Alegre MD metFORMIN (Glucophage) 1000 MG tablet TAKE 1 TAB BY MOUTH 2 (TWO) TIMES A DAY WITH MEALS. MUST COMPLETE LABS FOR FURTHER RESULTS. 10/17/24 Divine Archer APRN metoclopramide (Reglan) 10 MG tablet Take by mouth every 6 (six) hours. 05/10/18 Todd Alegre MD omeprazole (PriLOSEC) [address] capsule Take by mouth 2 (two) times a day. 11/03/16 Todd Alegre MD promethazine (Phenergan) 25 MG tablet 1 tablet (25 mg). Patient not taking: Reported on 09/13/2024 08/01/23 Todd Alegre MD rivaroxaban (Xarelto) 20 MG tablet Take by mouth 1 (one) time each day. 12/16/19 Todd Alegre MD Semaglutide,0.25 or 0.5MG/DOS, (Ozempic, 0.25 or 0.5 MG/DOSE,) 2 MG/3ML solution pen-injector INJECT 0.25 MG UNDER THE SKIN ONCE WEEKLY FOR 4 WEEKS THEN INCREASE TO 0.5 MG WEEKLY Patient not taking: Reported on 09/13/2024 09/09/24 Divine Archer APRN spironolactone (Aldactone) 50 MG tablet Take 1 tablet (50 mg) by mouth 2 (two) times a day. 09/09/20Todd Alegre MD tamsulosin (Flomax) 0.4 MG 24 hr capsule Take by mouth 1 (one) time each day. Patient not taking: Reported on 09/13/2024 Todd Alegre MD torsemide (Demadex) 20 MG tablet Take 1 tablet (20 mg) by mouth daily. Todd Alegre MD traZODone (Desyrel) 100 MG tablet Take by mouth every night. 02/18/19 Todd Alegre MD venlafaxine XR (Effoxor-XR) 150 MG 24 hr capsule Take by mouth 1 (one) time each day. 05/10/18 Todd Alegre MD Vraylar 3 MG capsule Take 1 capsule (3 mg) by mouth daily. Todd Alegre MD Anti-Thrombotic Medications: Is this patient taking warfarin, new oral anti-coagulant, or anti-platelet medication? Yes If Yes, What Medication: Rivaroxaban (Xarelto) Current Hospital Medications: Current Medications[5] Objective Objective: Visit Vitals Ht 1.829 m (6' 0.01 ) Wt (!) 256 kg (564 lb 6 oz) BMI 76.53 kg/m?? @ Physical Exam: Physical Exam Vitals and nursing note reviewed. Constitutional: General: He is not in acute distress. Appearance: Normal appearance. He is obese. He is not toxic-appearing. HENT: Head: Normocephalic and atraumatic. Right Ear: External ear normal. Left Ear: External ear normal. Eyes: Extraocular Movements: Extraocular movements intact. Conjunctiva/sclera: Conjunctivae normal. Cardiovascular: Rate and Rhythm: Normal rate. Pulmonary: Effort: Pulmonary effort is normal. No respiratory distress. Abdominal: Palpations: Abdomen is soft. Tenderness: There is no abdominal tenderness. Genitourinary: Penis: Normal. Comments: Rios in place Musculoskeletal: General: Normal range of motion. Skin: General: Skin is warm and dry. Findings: Erythema, lesion and rash present. Comments: Marked erythema, induration, and central necrosis overlying medial aspect of proximal R thigh; tender to palpation without crepitus. See attached images below. Neurological: General: No focal deficit present. Mental Status: He is alert and oriented to person, place, and time. Mental status is at baseline. Psychiatric: Mood and Affect: Mood normal. Behavior: Behavior normal. Medial aspect of proximal RIGHT thigh Medial aspect of proximal RIGHT thigh. Laboratory: CBC WBC ?? Hb ?? Plt ?? Hct ?? ANC ?? INR ??, PTT ??, Anti-Xa ?? MCV ?? BMP Na ?? Cl ?? BUN ?? Glu ?? K ?? Co2 ?? Cr ?? Ca ?? iCa ?? Mg ??, Phos ?? Lactate ?? LFT AST ?? AlkPhos ?? T Prot ?? ALK ?? Bili ?? Alb ?? D.Bili ?? Imaging: Radiographic Interpretation: No imagining today. Assessment/Plan Assessment & Plan: Gonzalo Russell is a 49 y.o. male with PMHx notable for Afib on xarelto, morbid obesity, T2DM, AUD, QUINN, prior bariatric surgery (reportedly sleeve gastrectomy), and GERD who presented to [facility] as a direct admission following transfer from OSH due to c/f RLE NSTI vs abscess. Bedside incision and debri lexy subsequently performed with local anesthesia and ketamine for moderate sedation and tolerated well; large volume of sanguinopurulent drainage expressed from indurated area overlying medial aspect of proximal R thigh. No organized abscess cavity noted on evaluation. [place] drain and vessel loop left in defects used to drain wound, covered with gauze. - monitor RLE wound; ok to remove gauze 6/3 AM - IV zyvox/zosyn - monitor RLE, awaiting area of concern to further declare itself - NPO - mIVF - resistant SSI - MMPC - resume home meds as able in AM - DVT proph w/ SQH; will need to determine AC plan Medical Problems Problem List * (Principal) Abscess of groin, right Diabetes mellitus type 2, uncontrolled Morbid obesity with BMI of 60.0-69.9, adult ([facility]) Hypertension Other hyperlipidemia Type 2 diabetes Overview Signed 04/14/2022 4:39 PM by Provider, Administrative Regulatory Update April 2022 Allergic rhinitis Edema Microalbuminuria QUINN (obstructive sleep apnea) Tobacco abuse counseling Neuropathy Abnormal ECG Acute kidney injury ([facility]) Alcohol abuse Anxiety disorder Bilateral knee pain Bone pain Callus of foot CAP (community acquired pneumonia) Cellulitis Change of skin color Chest wall pain CHF (congestive heart failure) ([facility]) COPD (chronic obstructive pulmonary disease) ([facility]) Decreased pedal pulses Dehydration Dependence on supplemental oxygen Depression Diabetic neuropathy ([facility]) Dyspnea Edema of both lower extremities Epididymitis Gastroenteritis Hyperglycemia due to type 2 diabetes mellitus ([facility]) Insomnia Left lower lobe pneumonia Lower back pain Lumbar radiculopathy Mood swings Nausea Noncompliance Numbness and tingling of both legs Onychodystrophy Onychomycosis Open wound of second toe of left foot Palpitations Atrial fibrillation with rapid ventricular response (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) S/P gastric sleeve procedure Sepsis ([facility]) Diabetic ulcer of left foot associated with diabetes mellitus due to underlying condition, limited to breakdown of skin Smoker unmotivated to quit UTI (urinary tract infection) Tachycardia Recommendations: Dispo: Continue Current Level of Care (SGE Floor) CODE STATUS: full code This Consult, Assessment, and Plan has been discussed with Dr. Casas, Attending Physician Ja Cheema MD [1] Past Medical History: Diagnosis Date Alcohol abuse, in remission Alcohol abuse, in remission Anxiety disorder, unspecified Anxiety Personal history of other diseases of the digestive system History of gastroesophageal reflux (GERD) Personal history of other diseases of the musculoskeletal system and connective tissue History of arthritis Personal history of other diseases of the nervous system and sense organs History of sleep apnea Personal history of other diseases of urinary system History of renal failure Personal history of other endocrine, nutritional and metabolic disease History of diabetes mellitus Personal history of other endocrine, nutritional and metabolic disease History of diabetic neuropathy Personal history of other mental and behavioral disorders History of depression Personal history of pneumonia (recurrent) History of pneumonia Type 2 diabetes mellitus (CMS/HCC) [2] Allergies Allergen Reactions Pedi-Pre Tape Echo [Wound Dressing Adhesive] Unknown - Patient states they do not know rxn details [3] Past Surgical History: Procedure Laterality Date ARTERIAL STENT PLACEMENT CHOLECYSTECTOMY GASTRIC BYPASS [4] Family History Problem Relation Name Age of Onset Alcohol abuse Mother Alcohol abuse Paternal Grandmother Alcohol abuse Mother's Sister Alcohol abuse Mother's Brother [5] Current Facility-Administered Medications Medication Dose Route Frequency Provider Last Rate Last Admin acetaminophen (Tylenol) tablet 650 mg 650 mg Oral q6h PRN Ja Cheema MD 650 mg at 12/12/24 2328 glucose (Glutose) 40 % oral gel 15-30 grams of glucose 15-30 grams of glucose Sublingual q15 min PRN Ja Cheema MD Or dextrose 50 % solution 12.5-25 g 12.5-25 g Intravenous q15 min PRN Ja Cheema MD Or glucagon (human recombinant) injection 1 mg 1 mg Intramuscular q15 min PRN Ja Cheema MD heparin (porcine) injection 7,500 Units 7,500 Units Subcutaneous q8h Ja Cheema MD 7,500 Units at 12/12/24 2332 insulin regular (HumuLIN R,NovoLIN R) 100 units/mL injection - Correction - Resistant Dose 0-10 Units Subcutaneous q6h KATHE Ja Cheema MD 4 Units at 12/12/24 2336 lactated Ringer's infusion 75 mL/hr Intravenous Continuous Ja Cheema MD ondansetron ODT (Zofran-ODT) disintegrating tablet 4 mg 4 mg Oral q6h PRN Ja Cheema MD Or ondansetron (Zofran) injection 4 mg 4 mg Intravenous q6h PRN Ja Cheema MD Or ondansetron (Zofran) 4 MG/5ML solution 4 mg 4 mg Oral q6h PRN Ja Cheema MD oxyCODONE (Roxicodone) immediate release tablet 5 mg 5 mg Oral q6h PRN Ja Cheema MD Or oxyCODONE (Roxicodone) immediate release tablet 10 mg 10 mg Oral q6h PRN Ja Cheema MD sodium chloride 0.9 % flush 10 mL 10 mL Intravenous q12h Ja Cheema MD 10 mL at 12/12/24 2338 And sodium chloride 0.9 % flush 10 mL 10 mL Intravenous PRN Ja Cheema MD Cosigned by Nicole Casas MD at 12/13/2024 11:29 PM EDT Associated attestation - Nicole Casas MD - 12/13/2024 11:29 PM EDT I saw and evaluated the patient with the resident/fellow. I discussed the case with the resident/fellow and agree with the findings and plan as documented. Right thigh with extensive cellulitis and area superomedially with draining purulent fluid and underlying fluctuance consistent with abscess. Bedside I&D tolerated well, drains and packing left in place. Packing will need to be removed and wound evaluated tomorrow for need for possible further debridement. Continue antibiotics given surrounding cellulitis. documented in this encounter Plan of Treatment Upcoming Encounters Date Type Department Care Team (Late st Contact Info) Description 03/21/2025 2:40 PM EDT Office Visit [facility] [place] [address] [facility] [place] [address] Laureano Jensen MD [address] [place] [address] 03/29/2025 2:20 PM EDT Office Visit [facility] [place] [address] Pratibha Forde PA [address] [place] [address] Scheduled Referrals Name Type Priority Associated Diagnoses Order Schedule Discharge Ambulatory referral to Urology Outpatient Referral Routine Urge incontinence Urinary retention 1 Occurrences starting 12/17/2024 until 06/20/2026 Discharge Ambulatory referral to [facility] Outpatient Referral Routine Abscess of groin, right 1 Occurrences starting 12/19/2024 until 06/22/2026 documented as of this encounter Procedures Procedure Name Priority Date/Time Associated Diagnosis Comments POCT GLUCOSE METER UNSOLICITED RESULTS Routine 12/17/2024 7:56 AM EDT POCT GLUCOSE METER UNSOLICITED RESULTS Routine 12/16/2024 8:45 PM EDT POCT GLUCOSE METER UNSOLICITED RESULTS Routine 12/16/2024 5:14 PM EDT POCT GLUCOSE METER UNSOLICITED RESULTS Routine 12/16/2024 12:20 PM EDT METHICILLIN RESISTANT STAPHYLOCOCCUS AUREUS (MRSA) BY PCR Routine 12/16/2024 11:17 AM EDT POCT GLUCOSE METER UNSOLICITED RESULTS Routine 12/16/2024 8:07 AM EDT NON-INVASIVE VENTILATION Routine 12/16/2024 8:00 AM EDT CBC W/O DIFFERENTIAL Routine 12/16/2024 1:43 AM EDT MAGNESIUM, PLASMA Routine 12/16/2024 1:4 3 AM EDT RENAL FUNCTION PANEL, PLASMA Routine 12/16/2024 1:43 AM EDT NON-INVASIVE VENTILATION Routine 12/15/2024 8:00 PM EDT POCT GLUCOSE METER UNSOLICITED RESULTS Routine 12/15/2024 7:35 PM EDT POCT GLUCOSE METER UNSOLICITED RESULTS Routine 12/15/2024 5:19 PM EDT POCT GLUCOSE METER UNSOLICITED RESULTS Routine 12/15/2024 11:53 AM EDT NON-INVASIVE VENTILATION Routine 12/15/2024 8:00 AM EDT POCT GLUCOSE METER UNSOLICITED RESULTS Routine 12/15/2024 7:55 AM EDT CBC W/O DIFFERENTIAL Routine 12/15/2024 6:48 AM EDT PHOSPHORUS, PLASMA Routine 12/15/2024 4: 37 AM EDT MAGNESIUM, PLASMA Routine 12/15/2024 4:3 7 AM EDT BASIC METABOLIC PANEL, PLASMA Routine 12/15/2024 4:37 AM EDT POCT GLUCOSE METER UNSOLICITED RESULTS Routine 12/14/2024 8:35 PM EDT NON-INVASIVE VENTILATION Routine 12/14/2024 8:00 PM EDT POCT GLUCOSE METER UNSOLICITED RESULTS Routine 12/14/2024 5:43 PM EDT POCT GLUCOSE METER UNSOLICITED RESULTS Routine 12/14/2024 4:32 PM EDT POCT GLUCOSE METER UNSOLICITED RESULTS Routine 12/14/2024 2:50 PM EDT POCT GLUCOSE METER UNSOLICITED RESULTS Routine 12/14/2024 1:50 PM EDT POCT GLUCOSE METER UNSOLICITED RESULTS Routine 12/14/2024 12:33 PM EDT POCT GLUCOSE METER UNSOLICITED RESULTS Routine 12/14/2024 10:30 AM EDT POCT GLUCOSE METER UNSOLICITED RESULTS Routine 12/14/2024 8:44 AM EDT NON-INVASIVE VENTILATION Routine 12/14/2024 8:00 AM EDT POCT GLUCOSE METER UNSOLICITED RESULTS Routine 12/14/2024 6:32 AM EDT CBC W/O DIFFERENTIAL Routine 12/14/2024 6:22 AM EDT RENAL FUNCTION PANEL, PLASMA Routine 12/14/2024 6:22 AM EDT POCT GLUCOSE METER UNSOLICITED RESULTS Routine 12/14/2024 4:54 AM EDT POCT GLUCOSE METER UNSOLICITED RESULTS Routine 12/14/2024 3:02 AM EDT POCT GLUCOSE METER UNSOLICITED RESULTS Routine 12/14/2024 12:59 AM EDT POCT GLUCOSE METER UNSOLICITED RESULTS Routine 12/13/2024 10:33 PM EDT POCT GLUCOSE METER UNSOLICITED RESULTS Routine 12/13/2024 8:31 PM EDT NON-INVASIVE VENTILATION Routine 12/13/2024 8:24 PM EDT NON-INVASIVE VENTILATION Routine 12/13/2024 8:24 PM EDT NON-INVASIVE VENTILATION Routine 12/13/2024 8:24 PM EDT POCT GLUCOSE METER UNSOLICITED RESULTS Routine 12/13/2024 6:03 PM EDT POCT GLUCOSE METER UNSOLICITED RESULTS Routine 12/13/2024 6:09 AM EDT NON-INVASIVE VENTILATION Routine 12/13/2024 4:26 AM EDT NON-INVASIVE VENTILATION Routine 12/13/2024 4:26 AM EDT WOUND OSTOMY EVAL AND TREAT Routine 12/13/2024 4:06 AM EDT HC DRAIN SKIN ABSCESS COMPLIC Routine 12/13/2024 12:50 AM EDT Abscess of groin, right CT DRAIN SKIN ABSCESS COMPLIC Routine 12/13/2024 12:50 AM EDT Abscess of groin, right CBC W/O DIFFERENTIAL Routine 12/12/2024 11:46 PM EDT PHOSPHORUS, PLASMA Routine 12/12/2024 11 :46 PM EDT MAGNESIUM, PLASMA Routine 12/12/2024 11: 46 PM EDT HEMOGLOBIN A1C Add-On 12/12/2024 11:46 PM EDT BASIC METABOLIC PANEL, PLASMA Routine 12/12/2024 11:46 PM EDT POCT GLUCOSE METER UNSOLICITED RESULTS Routine 12/12/2024 11:33 PM EDT documented in this encounter Results * (ABNORMAL) POCT glucose meter (12/17/2024 7:56 AM EDT) POCT Glucose 193(H) 74 - 99 mg/dL 12/17/2024 7:58 AM EDT [facility] Comment:Accuracy of a glucos e result obtained from a capillary whole blood specimen relies upon adequate, non-compromised capillary blood flow. If the capillary glucose result is not consistent with the patient's clinical signs and symptoms, glucose testing should be repeated with either an arterial or venous sample on the glucometer or sent to the main labortory for testing. Comment 12/17/2024 7:58 AM EDT [facility] Spotlight Operator ID Geo Gonzalez 025 7:58 AM EDT [employer] LAB Device ID [id number] 12/17/2024 7:58 AM EDT [facility] Specimen Type POC Capillary 12/17/2024 7:58 AM EDT [facility] Blood Capillary blood specimen / Unknown 12/17/2024 7:56 AM EDT 12/17/2024 7:58 AM EDT us Rian Robertson MD LAB POINT OF CARE TE ST DOCKED DEVICE UNSOLICITED RESULTS Final Result [facility] [address] [place] [address] * (ABNORMAL) POCT glucose meter (12/16/2024 8:45 PM EDT) Pathologist [facility] POCT Glucose 222(H) 74 - 99 mg/dL 12/16/2024 8:48 PM EDT [facility] Comment:Accuracy of a glucos e result obtained from a capillary whole blood specimen relies upon adequate, non-compromised capillary blood flow. If the capillary glucose result is not consistent with the patient's clinical signs and symptoms, glucose testing should be repeated with either an arterial or venous sample on the glucometer or sent to the main labortory for testing. Comment 12/16/2024 8:48 PM EDT [facility]ALTHCARE LAB Spotlight Operator Saida Brandon 8:48 PM EDT HEALTHCARE LAB Device ID [id number] 12/16/2024 8:48 PM EDT HEALTHCARE LAB Specimen Type POC Capillary 12/16/2024 8:48 PM EDT [facility] Blood Capillary blood specimen / Unknown 12/16/2024 8:45 PM EDT 12/16/2024 8:48 PM EDT Leidy Hernandez MD LAB POINT OF CARE TEST DOCKED DEVICE UNSOLICITED RESULTS Final Result [facility] [address] [place] [address] * (ABNORMAL) POCT glucose meter (12/16/2024 5:14 PM EDT) Pathologist [facility] POCT Glucose 179(H) 74 - 99 mg/dL 12/16/2024 5:16 PM EDT [facility] Comment:Accuracy of a glucos e result obtained from a capillary whole blood specimen relies upon adequate, non-compromised capillary blood flow. If the capillary glucose result is not consistent with the patient's clinical signs and symptoms, glucose testing should be repeated with either an arterial or venous sample on the glucometer or sent to the main labortory for testing. Comment 12/16/2024 5:16 PM EDT [facility] Spotlight Operator Kev Pineda 12/16/2024 5:16 PM EDT HEALTHCARE LAB Device ID [id number] 12/16/2024 5:16 PM EDT [facility] Specimen Type POC Capillary 12/16/2024 5:16 PM EDT [facility] Blood Capillary blood specimen / Unknown 12/16/2024 5:14 PM EDT 12/16/2024 5:16 PM EDT us Leidy Hernandez MD LAB POINT OF CARE TEST DOCKED DEVICE UNSOLICITED RESULTS Final Result Performing Organization Address [facility] de Phone Number [facility] [address] [place] [address] * (ABNORMAL) POCT glucose meter (12/16/2024 12:20 PM EDT) [facility] POCT Glucose 210(H) 74 - 99 mg/dL 12/16/2024 5:14 PM EDT [facility] Comment:Accuracy of a glucos e result obtained from a capillary whole blood specimen relies upon adequate, non-compromised capillary blood flow. If the capillary glucose result is not consistent with the patient's clinical signs and symptoms, glucose testing should be repeated with either an arterial or venous sample on the glucometer or sent to the main labortory for testing. Comment 12/16/2024 5:14 PM EDT [facility]ALTHCARE LAB Spotlight Operator ID Kev Guadalupe 12/16/2024 5:14 PM EDT HEALTHCARE LAB Device ID [id number] 12/16/2024 5:14 PM EDT [facility]ALTH[facility]ARE LAB Specimen Type POC Capillary 12/16/2024 5:14 PM EDT [facility] Blood Capillary blood specimen / Unknown 12/16/2024 12:20 PM EDT 12/16/2024 5:14 PM EDT us Leidy Hernandez MD LAB POINT OF CARE TEST DOCKED DEVICE UNSOLICITED RESULTS Final Result Performing Organization Address City/[facility] Co de Phone Number [facility]ALTHCARE [facility] [address] [place] [address] * Methicillin Resistant Staphylococcus aureus (MRSA) by PCR (12/16/2024 11:17 AM EDT) [facility] Methicillin Resistant Staphylococcus aureus (MRSA) by PCR Not Detected Not Detected 12/16/2024 5:31 PM EDT [facility] Swab Both anterior nares / Unknown Non-blood Collection / Unknown 12/16/2024 11:17 AM EDT 12/16/2024 3:23 PM EDT Narrative [facility] - 12/16/2024 5:31 PM EDT This test is FDA approved for use with nares swab specimens using the eSwabs. This test is used for clinical purposes. It should not be regarded as investigational or for research. This laboratory is certified under the Clinical Laboratory improvement Amendments of 1988 (CLIA-88 as qualified to perform high complexity clinical laboratory testing. us Leidy Hernandez MD LAB MICROBIOLOGY - GENERAL ORDERABLES Final Result [facility] [address] [place] [address] * (ABNORMAL) POCT glucose meter (12/16/2024 8:07 AM EDT) [facility] POCT Glucose 203(H) 74 - 99 mg/dL 12/16/2024 8:10 AM EDT [facility] Comment:Accuracy of a glucos e result obtained from a capillary whole blood specimen relies upon adequate, non-compromised capillary blood flow. If the capillary glucose result is not consistent with the patient's clinical signs and symptoms, glucose testing should be repeated with either an arterial or venous sample on the glucometer or sent to the main labortory for testing. Comment 12/16/2024 8:10 AM EDT HEALTHCARE LAB Spotlight Operator ID Kev Guadalupe 12/16/2024 8:10 AM EDT HEALTHCARE LAB Device ID [id number] 12/16/2024 8:10 AM EDT [facility]ALTH[facility]ARE LAB Specimen Type POC Capillary 12/16/2024 8:10 AM EDT [facility] Blood Capillary blood specimen / Unknown 12/16/2024 8:07 AM EDT 12/16/2024 8:10 AM EDT us Leidy Hernandez MD LAB POINT OF CARE TEST DOCKED DEVICE UNSOLICITED RESULTS Final Result [facility] [address] [place] [address] * (ABNORMAL) CBC W/O Differential (12/16/2024 1:43 AM EDT) WBC Count 4.08 3.70 - 10.30 10*3/uL LAB HEMATOLOGY METHOD 12/16/2024 2:10 AM EDT [facility] RBC Count 3.89(L) 4.60 - 6.10 10*6/uL LAB HEMATOLOGY METHOD 12/16/2024 2:10 AM EDT [facility] HGB 9.9(L) 13.7 - 17.5 g/dL LAB HEMATOLOGY METHOD 12/16/2024 2:10 AM EDT [facility] HCT 32.5(L) 40.0 - 51.0 % LAB HEMATOLOGY METHOD 12/16/2024 2:10 AM EDT [facility] Platelet Count 207 155 - 369 10*3/uL LAB HEMATOLOGY METHOD 12/16/2024 2:10 AM EDT [facility] MCV 84 79 - 98 fL LAB HEMATOLOGY METHOD 12/16/2024 2:10 AM EDT [facility] MCH 25.4(L) 26.0 - 32.0 pg LAB HEMATOLOGY METHOD 12/16/2024 2:10 AM EDT [facility] MCHC 30.5(L) 30.7 - 35.5 g/dL LAB HEMATOLOGY METHOD 12/16/2024 2:10 AM EDT [facility] RDW 17.0(H) 11.5 - 14.5 % LAB HEMATOLOGY METHOD 12/16/2024 2:10 AM EDT [facility] MPV 9.4 8.8 - 12.5 fL LAB HEMATOLOGY METHOD 12/16/2024 2:10 AM EDT [facility] nRBC 0.0 <=0.0 per 100 WBCs LAB HEMATOLOGY METHOD 12/16/2024 2:10 AM EDT [facility] Blood Venous blood specimen / Unknown Venipuncture / Unknown 12/16/2024 1:43 AM EDT 12/16/2024 1:59 AM EDT Leidy Hernandez MD LAB BLOOD ORDERABLES Final Result [facility] [address] [place] [address] * (ABNORMAL) Magnesium (12/16/2024 1:43 AM EDT) Magnesium, Plasma 1.7(L) 1.9 - 2.4 mg/dL 12/16/2024 2:30 AM EDT [facility] Blood Venous blood specimen / Unknown Venipuncture / Unknown 12/16/2024 1:43 AM EDT 12/16/2024 1:58 AM EDT Leidy Hernandez MD LAB BLOOD ORDERABLES Final Result Performing Organization Address City/[facility]/ZIP Co de Phone Number [facility] [address] [place] [address] * (ABNORMAL) Renal function panel (12/16/2024 1:43 AM EDT) Glucose, Plasma 301(H) 74 - 99 mg/dL 12/16/2024 2:30 AM EDT [facility] BUN, Plasma 7 7 - 21 mg/dL 12/16/2024 2:30 AM EDT [facility] Creatinine, Plasma 0.62(L) 0.70 - 1.20 mg/dL 12/16/2024 2:30 AM EDT [facility] BUN/Creatinine Ratio 11 12/16/2024 2:30 AM EDT [facility] Sodium, Plasma 135(L) 136 - 145 mmol/L 12/16/2024 2:30 AM EDT [facility] Potassium, Plasma 3.7 3.6 - 4.9 mmol/L 12/16/2024 2:30 AM EDT [facility] Chloride, Plasma 97 97 - 107 mmol/L 12/16/2024 2:30 AM EDT [facility] CO2, Plasma 29 22 - 29 mmol/L 12/16/2024 2:30 AM EDT [facility] Anion Gap 9 6 - 16 mmol/L 12/16/2024 2:30 AM EDT [facility] Total Calcium, Plasma 8.9 8.9 - 10.2 mg/dL 12/16/2024 2:30 AM EDT [facility] Phosphorus, Plasma 2.7 2.5 - 4.5 mg/dL 12/16/2024 2:30 AM EDT [facility] Albumin, Plasma 2.7(L) 3.5 - 5.2 g/dL 12/16/2024 2:30 AM EDT [facility] eGFRcr 118.6 mL/min/1.7 3m*2 12/16/2024 2:30 AM EDT [facility] Comment:Reported eGFRcr in m L/min/1.73m2 is based the CKD-EPI 2020 equation that does not use a race coefficient. Blood Venous blood specimen / Unknown Venipuncture / Unknown 12/16/2024 1:43 AM EDT 12/16/2024 1:58 AM EDT Leidy Hernandez MD LAB BLOOD ORDERABLES Final Result [facility] [address] [place] [address] * (ABNORMAL) POCT glucose meter (12/15/2024 7:35 PM EDT) [facility] POCT Glucose 171(H) 74 - 99 mg/dL 12/15/2024 7:36 PM EDT [facility] Comment:Accuracy of a glucos e result obtained from a capillary whole blood specimen relies upon adequate, non-compromised capillary blood flow. If the capillary glucose result is not consistent with the patient's clinical signs and symptoms, glucose testing should be repeated with either an arterial or venous sample on the glucometer or sent to the main labortory for testing. Comment 12/15/2024 7:36 PM EDT [facility] Spotlight Operator ID Nicole Villafana 12/16/19 7:36 PM EDT [facility] Device ID [id number] 12/15/2024 7:36 PM EDT HEALTHCARE LAB Specimen Type POC Capillary 12/15/2024 7:36 PM EDT [facility] Blood Capillary blood specimen / Unknown 12/15/2024 7:35 PM EDT 12/15/2024 7:36 PM EDT Leidy Hernandez MD LAB POINT OF CARE TEST DOCKED DEVICE UNSOLICITED RESULTS Final Result Performing Organization Address [facility] de Phone Number [facility] [address] [place] [address] * (ABNORMAL) POCT glucose meter (12/15/2024 5:19 PM EDT) POCT Glucose 158(H) 74 - 99 mg/dL 12/15/2024 5:20 PM EDT [facility] Comment:Accuracy of a glucos e result obtained from a capillary whole blood specimen relies upon adequate, non-compromised capillary blood flow. If the capillary glucose result is not consistent with the patient's clinical signs and symptoms, glucose testing should be repeated with either an arterial or venous sample on the glucometer or sent to the main labortory for testing. Comment 12/15/2024 5:20 PM EDT [facility] Spotlight Operator ID Yocasta Wang 12/15/2024 5:20 PM EDT [facility] Device ID [id number] 12/15/2024 5:20 PM EDT [facility] Specimen Type POC Capillary 12/15/2024 5:20 PM EDT [facility] Blood Capillary blood specimen / Unknown 12/15/2024 5:19 PM EDT 12/15/2024 5:20 PM EDT Leidy Hernandez MD LAB POINT OF CARE TEST DOCKED DEVICE UNSOLICITED RESULTS Final Result Performing Organization Address City/[facility] Co de Phone Number [facility] [address] [place] [address] * (ABNORMAL) POCT glucose meter (12/15/2024 11:53 AM EDT) POCT Glucose 164(H) 74 - 99 mg/dL 12/15/2024 11:55 AM EDT [facility] Comment:Accuracy of a glucos e result obtained from a capillary whole blood specimen relies upon adequate, non-compromised capillary blood flow. If the capillary glucose result is not consistent with the patient's clinical signs and symptoms, glucose testing should be repeated with either an arterial or venous sample on the glucometer or sent to the main labortory for testing. Comment 12/15/2024 11:55 AM EDT [facility] Spotlight Operator ID Yocasta Wang 12/15/2024 11:55 AM EDT [facility]ALTH[facility]ARE LAB Device ID [id number] 12/15/2024 11:55 AM EDT [facility] Specimen Type POC Capillary 12/15/2024 11:55 AM EDT [facility] Blood Capillary blood specimen / Unknown 12/15/2024 11:53 AM EDT 12/15/2024 11:55 AM EDT us Leidy Hernandez MD LAB POINT OF CARE TEST DOCKED DEVICE UNSOLICITED RESULTS Final Result Performing Organization Address City/[facility] Co de Phone Number [facility] [address] [place] [address] * (ABNORMAL) POCT glucose meter (12/15/2024 7:55 AM EDT) [facility] POCT Glucose 197(H) 74 - 99 mg/dL 12/15/2024 7:57 AM EDT [facility] Comment:Accuracy of a glucos e result obtained from a capillary whole blood specimen relies upon adequate, non-compromised capillary blood flow. If the capillary glucose result is not consistent with the patient's clinical signs and symptoms, glucose testing should be repeated with either an arterial or venous sample on the glucometer or sent to the main labortory for testing. Comment 12/15/2024 7:57 AM EDT [facility] Spotlight Operator ID Yocasta Wang 12/15/2024 7:57 AM EDT HEALTHCARE LAB Device ID [id number] 12/15/2024 7:57 AM EDT [facility]ALTH[facility] Specimen Type POC Capillary 12/15/2024 7:57 AM EDT [facility] Blood Capillary blood specimen / Unknown 12/15/2024 7:55 AM EDT 12/15/2024 7:57 AM EDT us Leidy Hernandez MD LAB POINT OF CARE TEST DOCKED DEVICE UNSOLICITED RESULTS Final Result [facility] [address] [place] [address] * (ABNORMAL) CBC W/O Differential (12/15/2024 6:48 AM EDT) WBC Count 4.36 3.70 - 10.30 10*3/uL LAB HEMATOLOGY METHOD 12/15/2024 7:04 AM EDT [facility] RBC Count 4.09(L) 4.60 - 6.10 10*6/uL LAB HEMATOLOGY METHOD 12/15/2024 7:04 AM EDT [facility] HGB 10.3(L) 13.7 - 17.5 g/dL LAB HEMATOLOGY METHOD 12/15/2024 7:04 AM EDT [facility] HCT 33.7(L) 40.0 - 51.0 % LAB HEMATOLOGY METHOD 12/15/2024 7:04 AM EDT [facility] Platelet Count 216 155 - 369 10*3/uL LAB HEMATOLOGY METHOD 12/15/2024 7:04 AM EDT [facility] MCV 82 79 - 98 fL LAB HEMATOLOGY METHOD 12/15/2024 7:04 AM EDT [facility] MCH 25.2(L) 26.0 - 32.0 pg LAB HEMATOLOGY METHOD 12/15/2024 7:04 AM EDT [facility] MCHC 30.6(L) 30.7 - 35.5 g/dL LAB HEMATOLOGY METHOD 12/15/2024 7:04 AM EDT [facility] RDW 17.0(H) 11.5 - 14.5 % LAB HEMATOLOGY METHOD 12/15/2024 7:04 AM EDT [facility] MPV 9.4 8.8 - 12.5 fL LAB HEMATOLOGY METHOD 12/15/2024 7:04 AM EDT [facility] nRBC 0.0 <=0.0 per 100 WBCs LAB HEMATOLOGY METHOD 12/15/2024 7:04 AM EDT [facility] Blood Venous blood specimen / Unknown Venipuncture / Unknown 12/15/2024 6:48 AM EDT 12/15/2024 6:57 AM EDT Leidy Hernandez MD LAB BLOOD ORDERABLES Final Result [facility] [address] [place] [address] * Phosphorus (12/15/2024 4:37 AM EDT) Pathologist [facility] Phosphorus, Plasma 3.1 2.5 - 4.5 mg/dL 12/15/2024 7:02 AM EDT [facility] Blood Venous blood specimen / Unknown Venipuncture / Unknown 12/15/2024 4:37 AM EDT 12/15/2024 4:47 AM EDT us Leidy Hernandez MD LAB BLOOD ORDERABLES Final Result Performing Organization Address [facility]/ZIP Co de Phone Number [facility] [address] [place] [address] * (ABNORMAL) Basic Metabolic Panel, Plasma (12/15/2024 4:37 AM EDT) [facility] Glucose, Plasma 199(H) 74 - 99 mg/dL 12/15/2024 7:02 AM EDT [facility] BUN, Plasma 6(L) 7 - 21 mg/dL 12/15/2024 7:02 AM EDT [facility] Creatinine, Plasma 0.59(L) 0.70 - 1.20 mg/dL 12/15/2024 7:02 AM EDT [facility] BUN/Creatinine Ratio 10 12/15/2024 7:02 AM EDT [facility] Sodium, Plasma 137 136 - 145 mmol/L 12/15/2024 7:02 AM EDT [facility] Potassium, Plasma 3.5(L) 3.6 - 4.9 mmol/L 12/15/2024 7:02 AM EDT [facility] Chloride, Plasma 96(L) 97 - 107 mmol/L 12/15/2024 7:02 AM EDT [facility] CO2, Plasma 29 22 - 29 mmol/L 12/15/2024 7:02 AM EDT [facility] Anion Gap 12 6 - 16 mmol/L 12/15/2024 7:02 AM EDT [facility] Total Calcium, Plasma 8.6(L) 8.9 - 10.2 mg/dL 12/15/2024 7:02 AM EDT [facility] eGFRcr 120.4 mL/min/1.7 3m*2 12/15/2024 7:02 AM EDT [facility] Comment:Reported eGFRcr in m L/min/1.73m2 is based the CKD-EPI 2020 equation that does not use a race coefficient. Blood Venous blood specimen / Unknown Venipuncture / Unknown 12/15/2024 4:37 AM EDT 12/15/2024 4:47 AM EDT us Leidy Hernandez MD LAB BLOOD ORDERABLES Final Result Performing Organization Address City/[facility]/ZIP Co de Phone Number [facility] [address] [place] [address] * (ABNORMAL) Magnesium, Plasma (12/15/2024 4:37 AM EDT) Magnesium, Plasma 1.8(L) 1.9 - 2.4 mg/dL 12/15/2024 5:11 AM EDT [facility] Blood Venous blood specimen / Unknown Venipuncture / Unknown 12/15/2024 4:37 AM EDT 12/15/2024 4:47 AM EDT Leidy Hernandez MD LAB BLOOD ORDERABLES Final Result Performing Organization Address City/[facility]/ZIP Co de Phone Number [facility] [address] [place] [address] * (ABNORMAL) POCT glucose meter (12/14/2024 8:35 PM EDT) POCT Glucose 166(H) 74 - 99 mg/dL 12/14/2024 8:37 PM EDT [facility] Comment:Accuracy of a glucos e result obtained from a capillary whole blood specimen relies upon adequate, non-compromised capillary blood flow. If the capillary glucose result is not consistent with the patient's clinical signs and symptoms, glucose testing should be repeated with either an arterial or venous sample on the glucometer or sent to the main labortory for testing. Comment 12/14/2024 8:37 PM EDT [facility] Spotlight Operator ID Xiomara Dickinson 12/14/2024 8:37 PM EDT HEALTHCARE LAB Device ID [id number] 12/14/2024 8:37 PM EDT [facility] Specimen Type POC Capillary 12/14/2024 8:37 PM EDT [facility] Blood Capillary blood specimen / Unknown 12/14/2024 8:35 PM EDT 12/14/2024 8:37 PM EDT Leidy Hernandez MD LAB POINT OF CARE TEST DOCKED DEVICE UNSOLICITED RESULTS Final Result Performing Organization Address City/[facility] Co de Phone Number [facility] [address] [place] [address] * (ABNORMAL) POCT glucose meter (12/14/2024 5:43 PM EDT) [facility] Signature POCT Glucose 175(H) 74 - 99 mg/dL 12/14/2024 5:45 PM EDT [facility] Comment:Accuracy of a glucos e result obtained from a capillary whole blood specimen relies upon adequate, non-compromised capillary blood flow. If the capillary glucose result is not consistent with the patient's clinical signs and symptoms, glucose testing should be repeated with either an arterial or venous sample on the glucometer or sent to the main labortory for testing. Comment 12/14/2024 5:45 PM EDT [facility] Spotlight Operator ID Max Hernandez 12/14/2024 5:45 PM EDT [facility]ARE LAB Device ID [id number] 12/14/2024 5:45 PM EDT [facility] Specimen Type POC Capillary 12/14/2024 5:45 PM EDT [facility] Blood Capillary blood specimen / Unknown 12/14/2024 5:43 PM EDT 12/14/2024 5:45 PM EDT us Leidy Hernandez MD LAB POINT OF CARE TEST DOCKED DEVICE UNSOLICITED RESULTS Final Result Performing Organization Address City/[facility]/ZIP Co de Phone Number [facility] [address] [place] [address] * (ABNORMAL) POCT glucose meter (12/14/2024 4:32 PM EDT) [facility] POCT Glucose 154(H) 74 - 99 mg/dL 12/14/2024 4:33 PM EDT [facility] Comment:Accuracy of a glucos e result obtained from a capillary whole blood specimen relies upon adequate, non-compromised capillary blood flow. If the capillary glucose result is not consistent with the patient's clinical signs and symptoms, glucose testing should be repeated with either an arterial or venous sample on the glucometer or sent to the main labortory for testing. Comment 12/14/2024 4:33 PM EDT [facility] Spotlight Operator ID Max Hernandez 12/14/2024 4:33 PM EDT [facility]ALTH[facility]ARE LAB Device ID [id number] 12/14/2024 4:33 PM EDT [facility] Specimen Type POC Capillary 12/14/2024 4:33 PM EDT [facility] Blood Capillary blood specimen / Unknown 12/14/2024 4:32 PM EDT 12/14/2024 4:33 PM EDT Leidy Hernandez MD LAB POINT OF CARE TEST DOCKED DEVICE UNSOLICITED RESULTS Final Result Performing Organization Address City/State/[facility] Co de Phone Number [facility] [address] [place] [address] * (ABNORMAL) POCT glucose meter (12/14/2024 2:50 PM EDT) [facility] POCT Glucose 171(H) 74 - 99 mg/dL 12/14/2024 2:52 PM EDT [facility] Comment:Accuracy of a glucos e result obtained from a capillary whole blood specimen relies upon adequate, non-compromised capillary blood flow. If the capillary glucose result is not consistent with the patient's clinical signs and symptoms, glucose testing should be repeated with either an arterial or venous sample on the glucometer or sent to the main labortory for testing. Comment 12/14/2024 2:52 PM EDT [facility] Spotlight Operator ID Max Hernandez 12/14/2024 2:52 PM EDT [facility]ARE [facility] Device ID [id number] 12/14/2024 2:52 PM EDT [facility]ALTH[facility]ARE LAB Specimen Type POC Capillary 12/14/2024 2:52 PM EDT [facility] Blood Capillary blood specimen / Unknown 12/14/2024 2:50 PM EDT 12/14/2024 2:52 PM EDT Result [facility] Leidy Hernandez MD LAB POINT OF CARE TEST DOCKED DEVICE UNSOLICITED RESULTS Final Result Performing Organization Address City/[facility] Co de Phone Number HEALTHCARE LAB [address] [place] [address] * (ABNORMAL) POCT glucose meter (12/14/2024 1:50 PM EDT) POCT Glucose 173(H) 74 - 99 mg/dL 12/14/2024 1:51 PM EDT [facility] Comment:Accuracy of a glucos e result obtained from a capillary whole blood specimen relies upon adequate, non-compromised capillary blood flow. If the capillary glucose result is not consistent with the patient's clinical signs and symptoms, glucose testing should be repeated with either an arterial or venous sample on the glucometer or sent to the main labortory for testing. Comment 12/14/2024 1:51 PM EDT [facility] Spotlight Operator ID Max Hernandez 12/14/2024 1:51 PM EDT HEALTHCARE LAB Device ID [id number] 12/14/2024 1:51 PM EDT HEALTHCARE LAB Specimen Type POC Capillary 12/14/2024 1:51 PM EDT [facility] Blood Capillary blood specimen / Unknown 12/14/2024 1:50 PM EDT 12/14/2024 1:51 PM EDT Result [facility] Leidy Hernandez MD LAB POINT OF CARE TEST DOCKED DEVICE UNSOLICITED RESULTS Final Result Performing Organization Address City/[facility]/ZIP Co de Phone Number [facility] [address] [place] [address] * (ABNORMAL) POCT glucose meter (12/14/2024 12:33 PM EDT) POCT Glucose 184(H) 74 - 99 mg/dL 12/14/2024 12:35 PM EDT [facility] Comment:Accuracy of a glucos e result obtained from a capillary whole blood specimen relies upon adequate, non-compromised capillary blood flow. If the capillary glucose result is not consistent with the patient's clinical signs and symptoms, glucose testing should be repeated with either an arterial or venous sample on the glucometer or sent to the main labortory for testing. Comment 12/14/2024 12:35 PM EDT [facility]ALTH[facility]ARE LAB Spotlight Operator ID Yocasta Wang 12/14/2024 12:35 PM EDT HEALTHCARE LAB Device ID [id number] 12/14/2024 12:35 PM EDT [facility]ALTHCARE LAB Specimen Type POC Capillary 12/14/2024 12:35 PM EDT [facility] Blood Capillary blood specimen / Unknown 12/14/2024 12:33 PM EDT 12/14/2024 12:35 PM EDT us Leidy Hernandez MD LAB POINT OF CARE TEST DOCKED DEVICE UNSOLICITED RESULTS Final Result Performing Organization Address City/State/[facility] Co de Phone Number HEALTHCARE LAB [address] [place] [address] * (ABNORMAL) POCT glucose meter (12/14/2024 10:30 AM EDT) [facility] POCT Glucose 193(H) 74 - 99 mg/dL 12/14/2024 10:31 AM EDT [facility]ALTH[facility] Comment:Accuracy of a glucos e result obtained from a capillary whole blood specimen relies upon adequate, non-compromised capillary blood flow. If the capillary glucose result is not consistent with the patient's clinical signs and symptoms, glucose testing should be repeated with either an arterial or venous sample on the glucometer or sent to the main labortory for testing. Comment 12/14/2024 10:31 AM EDT [facility]ALTHCARE LAB Spotlight Operator ID Max Hernandez 12/14/2024 10:31 AM EDT HEALTHCARE LAB Device ID [id number] 12/14/2024 10:31 AM EDT [facility]ARE LAB Specimen Type POC Capillary 12/14/2024 10:31 AM EDT [facility] Blood Capillary blood specimen / Unknown 12/14/2024 10:30 AM EDT 12/14/2024 10:31 AM EDT us Leidy Hernandez MD LAB POINT OF CARE TEST DOCKED DEVICE UNSOLICITED RESULTS Final Result [facility] [address] [place] [address] * (ABNORMAL) POCT glucose meter (12/14/2024 8:44 AM EDT) POCT Glucose 135(H) 74 - 99 mg/dL 12/14/2024 8:46 AM EDT [facility] Comment:Accuracy of a glucos e result obtained from a capillary whole blood specimen relies upon adequate, non-compromised capillary blood flow. If the capillary glucose result is not consistent with the patient's clinical signs and symptoms, glucose testing should be repeated with either an arterial or venous sample on the glucometer or sent to the main labortory for testing. Comment 12/14/2024 8:46 AM EDT [employer] [facility] Spotlight Operator ID Max Hernandez 12/14/2024 8:46 AM EDT [employer] LAB Device ID [id number] 12/14/2024 8:46 AM EDT [employer] LAB Specimen Type POC Capillary 12/14/2024 8:46 AM EDT [facility] Blood Capillary blood specimen / Unknown 12/14/2024 8:44 AM EDT 12/14/2024 8:46 AM EDT Leidy Hernandez MD LAB POINT OF CARE TEST DOCKED DEVICE UNSOLICITED RESULTS Final Result Performing Organization Address City/[facility]/ZIP Co de Phone Number [facility] [address] [place] [address] * (ABNORMAL) POCT glucose meter (12/14/2024 6:32 AM EDT) POCT Glucose 168(H) 74 - 99 mg/dL 12/14/2024 6:34 AM EDT [facility] Comment:Accuracy of a glucos e result obtained from a capillary whole blood specimen relies upon adequate, non-compromised capillary blood flow. If the capillary glucose result is not consistent with the patient's clinical signs and symptoms, glucose testing should be repeated with either an arterial or venous sample on the glucometer or sent to the main labortory for testing. Comment 12/14/2024 6:34 AM EDT [facility] Spotlight Operator ID Xiomara Dickinson 12/14/2024 6:34 AM EDT [facility]ALTHCARE LAB Device ID [id number] 12/14/2024 6:34 AM EDT [facility]ARE LAB Specimen Type POC Capillary 12/14/2024 6:34 AM EDT [facility] Blood Capillary blood specimen / Unknown 12/14/2024 6:32 AM EDT 12/14/2024 6:34 AM EDT Leidy Hernandez MD LAB POINT OF CARE TEST DOCKED DEVICE UNSOLICITED RESULTS Final Result [facility] [address] [place] [address] * (ABNORMAL) Renal function panel (12/14/2024 6:22 AM EDT) Glucose, Plasma 191(H) 74 - 99 mg/dL 12/14/2024 7:06 AM EDT [facility] BUN, Plasma 7 7 - 21 mg/dL 12/14/2024 7:06 AM EDT [facility] Creatinine, Plasma 0.65(L) 0.70 - 1.20 mg/dL 12/14/2024 7:06 AM EDT [facility] BUN/Creatinine Ratio 11 12/14/2024 7:06 AM EDT [facility] Sodium, Plasma 136 136 - 145 mmol/L 12/14/2024 7:06 AM EDT [facility] Potassium, Plasma 4.6 3.6 - 4.9 mmol/L 12/14/2024 7:06 AM EDT [facility] Comment:Hemolyzed, result ma y be falsely increased. Chloride, Plasma 95(L) 97 - 107 mmol/L 12/14/2024 7:06 AM EDT [facility] CO2, Plasma 32(H) 22 - 29 mmol/L 12/14/2024 7:06 AM EDT [facility] Anion Gap 9 6 - 16 mmol/L 12/14/2024 7:06 AM EDT [facility] Total Calcium, Plasma 8.8(L) 8.9 - 10.2 mg/dL 12/14/2024 7:06 AM EDT [facility] Phosphorus, Plasma 3.8 2.5 - 4.5 mg/dL 12/14/2024 7:06 AM EDT [facility] Albumin, Plasma 2.7(L) 3.5 - 5.2 g/dL 12/14/2024 7:06 AM EDT [facility] eGFRcr 117.0 mL/min/1.7 3m*2 12/14/2024 7:06 AM EDT [facility] Comment:Reported eGFRcr in m L/min/1.73m2 is based the CKD-EPI 2020 equation that does not use a race coefficient. Blood Venous blood specimen / Unknown Venipuncture / Unknown 12/14/2024 6:22 AM EDT 12/14/2024 6:36 AM EDT us Leidy Hernandez MD LAB BLOOD ORDERABLES Final Result [facility] [address] [place] [address] * (ABNORMAL) CBC W/O Differential (12/14/2024 6:22 AM EDT) WBC Count 5.47 3.70 - 10.30 10*3/uL LAB HEMATOLOGY METHOD 12/14/2024 6:45 AM EDT [facility] RBC Count 4.27(L) 4.60 - 6.10 10*6/uL LAB HEMATOLOGY METHOD 12/14/2024 6:45 AM EDT [facility] HGB 10.7(L) 13.7 - 17.5 g/dL LAB HEMATOLOGY METHOD 12/14/2024 6:45 AM EDT [facility] HCT 35.9(L) 40.0 - 51.0 % LAB HEMATOLOGY METHOD 12/14/2024 6:45 AM EDT [facility] Platelet Count 228 155 - 369 10*3/uL LAB HEMATOLOGY METHOD 12/14/2024 6:45 AM EDT [facility] MCV 84 79 - 98 fL LAB HEMATOLOGY METHOD 12/14/2024 6:45 AM EDT [facility] MCH 25.1(L) 26.0 - 32.0 pg LAB HEMATOLOGY METHOD 12/14/2024 6:45 AM EDT [facility] MCHC 29.8(L) 30.7 - 35.5 g/dL LAB HEMATOLOGY METHOD 12/14/2024 6:45 AM EDT [facility] RDW 17.2(H) 11.5 - 14.5 % LAB HEMATOLOGY METHOD 12/14/2024 6:45 AM EDT [facility] MPV 10.1 8.8 - 12.5 fL LAB HEMATOLOGY METHOD 12/14/2024 6:45 AM EDT [facility] nRBC 0.0 <=0.0 per 100 WBCs LAB HEMATOLOGY METHOD 12/14/2024 6:45 AM EDT [facility] Blood Venous blood specimen / Unknown Venipuncture / Unknown 12/14/2024 6:22 AM EDT 12/14/2024 6:36 AM EDT Leidy Hernandez MD LAB BLOOD ORDERABLES Final Result [facility] [address] [place] [address] * (ABNORMAL) POCT glucose meter (12/14/2024 4:54 AM EDT) POCT Glucose 212(H) 74 - 99 mg/dL 12/14/2024 6:32 AM EDT [facility] Comment:Accuracy of a glucos e result obtained from a capillary whole blood specimen relies upon adequate, non-compromised capillary blood flow. If the capillary glucose result is not consistent with the patient's clinical signs and symptoms, glucose testing should be repeated with either an arterial or venous sample on the glucometer or sent to the main labortory for testing. Comment 12/14/2024 6:32 AM EDT [facility] Spotlight Operator ID Arik Deannaloreta 12/14/2024 6:32 AM EDT HEALTHCARE LAB Device ID [id number] 12/14/2024 6:32 AM EDT [facility]ALTH[facility]ARE LAB Specimen Type POC Capillary 12/14/2024 6:32 AM EDT [facility] Blood Capillary blood specimen / Unknown 12/14/2024 4:54 AM EDT 12/14/2024 6:32 AM EDT Leidy Hernandez MD LAB POINT OF CARE TEST DOCKED DEVICE UNSOLICITED RESULTS Final Result Performing Organization Address [facility] de Phone Number HEALTHCARE LAB [address] [place] [address] * (ABNORMAL) POCT glucose meter (12/14/2024 3:02 AM EDT) POCT Glucose 197(H) 74 - 99 mg/dL 12/14/2024 3:03 AM EDT [facility] Comment:Accuracy of a glucos e result obtained from a capillary whole blood specimen relies upon adequate, non-compromised capillary blood flow. If the capillary glucose result is not consistent with the patient's clinical signs and symptoms, glucose testing should be repeated with either an arterial or venous sample on the glucometer or sent to the main labortory for testing. Comment 12/14/2024 3:03 AM EDT [facility] Spotlight Operator ID Xiomara Dickinson 12/14/2024 3:03 AM EDT [facility] Device ID [id number] 12/14/2024 3:03 AM EDT [facility] Specimen Type POC Capillary 12/14/2024 3:03 AM EDT [facility] Blood Capillary blood specimen / Unknown 12/14/2024 3:02 AM EDT 12/14/2024 3:03 AM EDT Leidy Hernandez MD LAB POINT OF CARE TEST DOCKED DEVICE UNSOLICITED RESULTS Final Result Performing Organization Address City/[facility] Co de Phone Number [facility] [address] [place] [address] * (ABNORMAL) POCT glucose meter (12/14/2024 12:59 AM EDT) POCT Glucose 232(H) 74 - 99 mg/dL 12/14/2024 1:01 AM EDT [facility] Comment:Accuracy of a glucos e result obtained from a capillary whole blood specimen relies upon adequate, non-compromised capillary blood flow. If the capillary glucose result is not consistent with the patient's clinical signs and symptoms, glucose testing should be repeated with either an arterial or venous sample on the glucometer or sent to the main labortory for testing. Comment 12/14/2024 1:01 AM EDT [facility]ALTH[facility] Spotlight Operator ID Xiomara Dickinson 12/14/2024 1:01 AM EDT HEALTHCARE LAB Device ID [id number] 12/14/2024 1:01 AM EDT [facility]ALTH[facility]ARE LAB Specimen Type POC Capillary 12/14/2024 1:01 AM EDT [facility] Blood Capillary blood specimen / Unknown 12/14/2024 12:59 AM EDT 12/14/2024 1:01 AM EDT us Leidy Hernandez MD LAB POINT OF CARE TEST DOCKED DEVICE UNSOLICITED RESULTS Final Result Performing Organization Address City/[facility] Co de Phone Number [facility]ARE [facility] [address] [place] [address] * (ABNORMAL) POCT glucose meter (12/13/2024 10:33 PM EDT) POCT Glucose 271(H) 74 - 99 mg/dL 12/13/2024 10:34 PM EDT [facility] Comment:Accuracy of a glucos e result obtained from a capillary whole blood specimen relies upon adequate, non-compromised capillary blood flow. If the capillary glucose result is not consistent with the patient's clinical signs and symptoms, glucose testing should be repeated with either an arterial or venous sample on the glucometer or sent to the main labortory for testing. Comment 12/13/2024 10:34 PM EDT [facility] Spotlight Operator ID Beth Elise 12/13/2024 10:34 PM EDT HEALTHCARE LAB Device ID [id number] 12/13/2024 10:34 PM EDT [facility] LAB Specimen Type POC Capillary 12/13/2024 10:34 PM EDT [facility] Blood Capillary blood specimen / Unknown 12/13/2024 10:33 PM EDT 12/13/2024 10:34 PM EDT us Leidy Hernandez MD LAB POINT OF CARE TEST DOCKED DEVICE UNSOLICITED RESULTS Final Result Performing Organization Address City/[facility]/ZIP Co de Phone Number [facility]CARE LAB [address] [place] [address] * (ABNORMAL) POCT glucose meter (12/13/2024 8:31 PM EDT) Pathologist [facility] POCT Glucose 323(H) 74 - 99 mg/dL 12/13/2024 8:33 PM EDT [facility] Comment:Accuracy of a glucos e result obtained from a capillary whole blood specimen relies upon adequate, non-compromised capillary blood flow. If the capillary glucose result is not consistent with the patient's clinical signs and symptoms, glucose testing should be repeated with either an arterial or venous sample on the glucometer or sent to the main labortory for testing. Comment 12/13/2024 8:33 PM EDT [facility] Spotlight Operator ID Xiomara Dickinson 12/13/2024 8:33 PM EDT HEALTHCARE LAB Device ID [id number] 12/13/2024 8:33 PM EDT [facility] LAB Specimen Type POC Capillary 12/13/2024 8:33 PM EDT [facility] Blood Capillary blood specimen / Unknown 12/13/2024 8:31 PM EDT 12/13/2024 8:33 PM EDT Leidy Hernandez MD LAB POINT OF CARE TEST DOCKED DEVICE UNSOLICITED RESULTS Final Result Performing Organization Address City/State/[facility] Co de Phone Number [facility] [address] [place] [address] * (ABNORMAL) POCT glucose meter (12/13/2024 6:03 PM EDT) Pathologist [facility] POCT Glucose 243(H) 74 - 99 mg/dL 12/13/2024 6:04 PM EDT [facility] Comment:Accuracy of a glucos e result obtained from a capillary whole blood specimen relies upon adequate, non-compromised capillary blood flow. If the capillary glucose result is not consistent with the patient's clinical signs and symptoms, glucose testing should be repeated with either an arterial or venous sample on the glucometer or sent to the main labortory for testing. Comment 12/13/2024 6:04 PM EDT [facility] Spotlight Operator ID Mingo Gong 12/14/19 6:04 PM EDT [facility] Device ID [id number] 12/13/2024 6:04 PM EDT [facility] Specimen Type POC Capillary 12/13/2024 6:04 PM EDT [facility] Blood Capillary blood specimen / Unknown 12/13/2024 6:03 PM EDT 12/13/2024 6:04 PM EDT Leidy Hernandez MD LAB POINT OF CARE TEST DOCKED DEVICE UNSOLICITED RESULTS Final Result [facility] [address] [place] [address] * (ABNORMAL) POCT glucose meter (12/13/2024 6:09 AM EDT) [facility] POCT Glucose 227(H) 74 - 99 mg/dL 12/13/2024 6:11 AM EDT [facility] Comment:Accuracy of a glucos e result obtained from a capillary whole blood specimen relies upon adequate, non-compromised capillary blood flow. If the capillary glucose result is not consistent with the patient's clinical signs and symptoms, glucose testing should be repeated with either an arterial or venous sample on the glucometer or sent to the main labortory for testing. Comment 12/13/2024 6:11 AM EDT [facility] Spotlight Operator ID Philippe Day 6:11 AM EDT [facility] Device ID [id number] 12/13/2024 6:11 AM EDT [facility]ALTH[facility]ARE LAB Specimen Type POC Capillary 12/13/2024 6:11 AM EDT [facility] LAB Blood Capillary blood specimen / Unknown 12/13/2024 6:09 AM EDT 12/13/2024 6:11 AM EDT Nicole Casas MD LAB POINT OF CARE TEST DOCKED DEVICE UNSOLICITED RESULTS Final Result [facility] [address] [place] [address] * CT DRAIN SKIN ABSCESS COMPLIC, HC DRAIN SKIN ABSCESS COMPLIC (12/13/2024 12:50 AM EDT) Narrative Nicole Casas MD - 12/13/2024 12:50 AM EDT Nicole Casas MD 12/13/2024 9:14 AM Incision and Drainage Performed by: Kofi Zamora MD Authorized by: Nicole Casas MD Consent: Consent obtained: Written Consent given by: Patient Risks, benefits, and alternatives were discussed: yes Risks discussed: Bleeding, incomplete drainage and infection Alternatives discussed: No treatment and observation Terril protocol: Procedure explained and questions answered to patient or proxy's satisfaction: yes Required blood products, implants, devices, and special equipment available: yes Attending Supervision?: yes Location: Type: Abscess Location: Lower extremity Lower extremity location: Leg Leg location: R upper leg Pre-procedure details: Skin preparation: Povidone-iodine Sedation: Sedation type: Moderate sedation Anesthesia: Anesthesia method: Local infiltration Local anesthetic: Lidocaine 1% w/o epi Procedure type: Complexity: Complex Procedure details: Ultrasound guidance: no Needle aspiration: no Incision types: Stab incision and single straight (Spontaneous drainage sites x3 were incised to increase size) Incision depth: Subcutaneous Wound management: Probed and deloculated, extensive cleaning and debrided Drainage: Bloody and purulent Drainage amount: Copious Wound treatment: Drain placed Packing materials: Vessel loops ([place]; kerlix) Post-procedure details: Procedure completion: Tolerated well, no immediate complications Nicole Casas MD IN CLINIC/BEDSIDE ORDERAB LES Final Result * (ABNORMAL) Hemoglobin A1c (12/12/2024 11:46 PM EDT) Hemoglobin A1c 10.9(H) <5.7 % 12/13/2024 11:55 AM EDT [facility] Blood Venous blood specimen / Unknown Venipuncture / Unknown 12/12/2024 11:46 PM EDT 12/13/2024 12:06 AM EDT Narrative [facility] - 12/13/2024 11:55 AM EDT HA1C Interpretive Data: Diagnosis of Diabetes: Diabetic > or = 6.5% Pre-diabetic 5.7 to 6.4% Non-diabetic < or = 5.6% Glycemic Targets for Type I and Type II Diabetics: Non- Adults <7.0% Adults <6.0% Children and Adolescents <7.5% Source: [employer]. Standards of medical care in diabetes,2017. Diabetes Care.2017:40 (suppl 1):S1-S135. Nicole Casas MD LAB BLOOD ORDERABLES Melba l Result Performing Organization Address City/[facility]/ZIP Co de Phone Number [facility] [address] [place] [address] * Phosphorus, Plasma (12/12/2024 11:46 PM EDT) Phosphorus, Plasma 2.6 2.5 - 4.5 mg/dL 12/13/2024 12:36 AM EDT [facility] Blood Venous blood specimen / Unknown Venipuncture / Unknown 12/12/2024 11:46 PM EDT 12/13/2024 12:06 AM EDT Nicole Casas MD LAB BLOOD ORDERABLES Melba l Result Performing Organization Address [facility] Co de Phone Number [facility] [address] [place] [address] * (ABNORMAL) Magnesium, Plasma (12/12/2024 11:46 PM EDT) Magnesium, Plasma 1.6(L) 1.9 - 2.4 mg/dL 12/13/2024 12:36 AM EDT [facility] Blood Venous blood specimen / Unknown Venipuncture / Unknown 12/12/2024 11:46 PM EDT 12/13/2024 12:06 AM EDT Nicole Casas MD LAB BLOOD ORDERABLES Melba l Result [facility] [address] [place] [address] * (ABNORMAL) Basic metabolic panel (12/12/2024 11:46 PM EDT) Glucose, Plasma 214(H) 74 - 99 mg/dL 12/13/2024 12:36 AM EDT [facility] BUN, Plasma 10 7 - 21 mg/dL 12/13/2024 12:36 AM EDT [facility] Creatinine, Plasma 0.60(L) 0.70 - 1.20 mg/dL 12/13/2024 12:36 AM EDT [facility] BUN/Creatinine Ratio 17 12/13/2024 12:36 AM EDT [facility] Sodium, Plasma 136 136 - 145 mmol/L 12/13/2024 12:36 AM EDT [facility] Potassium, Plasma 3.6 3.6 - 4.9 mmol/L 12/13/2024 12:36 AM EDT [facility] Chloride, Plasma 93(L) 97 - 107 mmol/L 12/13/2024 12:36 AM EDT [facility] CO2, Plasma 31(H) 22 - 29 mmol/L 12/13/2024 12:36 AM EDT [facility] Anion Gap 12 6 - 16 mmol/L 12/13/2024 12:36 AM EDT [facility] Total Calcium, Plasma 8.9 8.9 - 10.2 mg/dL 12/13/2024 12:36 AM EDT [facility] eGFRcr 119.8 mL/min/1.7 3m*2 12/13/2024 12:36 AM EDT [facility] Comment:Reported eGFRcr in m L/min/1.73m2 is based the CKD-EPI 2020 equation that does not use a race coefficient. Blood Venous blood specimen / Unknown Venipuncture / Unknown 12/12/2024 11:46 PM EDT 12/13/2024 12:06 AM EDT Nicole Casas MD LAB BLOOD ORDERABLES Melba l Result [facility] [address] [place] [address] * (ABNORMAL) CBC W/O Differential (12/12/2024 11:46 PM EDT) WBC Count 6.88 3.70 - 10.30 10*3/uL LAB HEMATOLOGY METHOD 12/13/2024 12:15 AM EDT [facility] RBC Count 4.52(L) 4.60 - 6.10 10*6/uL LAB HEMATOLOGY METHOD 12/13/2024 12:15 AM EDT [facility] HGB 11.4(L) 13.7 - 17.5 g/dL LAB HEMATOLOGY METHOD 12/13/2024 12:15 AM EDT [facility] HCT 36.4(L) 40.0 - 51.0 % LAB HEMATOLOGY METHOD 12/13/2024 12:15 AM EDT [facility] Platelet Count 257 155 - 369 10*3/uL LAB HEMATOLOGY METHOD 12/13/2024 12:15 AM EDT [facility] MCV 81 79 - 98 fL LAB HEMATOLOGY METHOD 12/13/2024 12:15 AM EDT [facility] MCH 25.2(L) 26.0 - 32.0 pg LAB HEMATOLOGY METHOD 12/13/2024 12:15 AM EDT [facility] MCHC 31.3 30.7 - 35.5 g/dL LAB HEMATOLOGY METHOD 12/13/2024 12:15 AM EDT [facility] RDW 16.9(H) 11.5 - 14.5 % LAB HEMATOLOGY METHOD 12/13/2024 12:15 AM EDT [facility] MPV 10.0 8.8 - 12.5 fL LAB HEMATOLOGY METHOD 12/13/2024 12:15 AM EDT [facility] nRBC 0.0 <=0.0 per 100 WBCs LAB HEMATOLOGY METHOD 12/13/2024 12:15 AM EDT [facility] Blood Venous blood specimen / Unknown Venipuncture / Unknown 12/12/2024 11:46 PM EDT 12/13/2024 12:06 AM EDT us Nicole Casas MD LAB BLOOD ORDERABLES Melba don Result [facility] [address] [place] [address] * (ABNORMAL) POCT glucose meter (12/12/2024 11:33 PM EDT) POCT Glucose 216(H) 74 - 99 mg/dL 12/12/2024 11:36 PM EDT [facility] Comment:Accuracy of a glucos e result obtained from a capillary whole blood specimen relies upon adequate, non-compromised capillary blood flow. If the capillary glucose result is not consistent with the patient's clinical signs and symptoms, glucose testing should be repeated with either an arterial or venous sample on the glucometer or sent to the main labortory for testing. Comment 12/12/2024 11:36 PM EDT [facility] Spotlight Operator ID Philippe Day 11:36 PM EDT HEALTHCARE LAB Device ID [id number] 12/12/2024 11:36 PM EDT [facility]ALTH[facility]ARE [facility] Specimen Type POC Capillary 12/12/2024 11:36 PM EDT [facility] Blood Capillary blood specimen / Unknown 12/12/2024 11:33 PM EDT 12/12/2024 11:36 PM EDT Nicole Casas MD LAB POINT OF CARE TEST DOCKED DEVICE UNSOLICITED RESULTS Final Result Performing Organization Address City/State/[facility] Co de Phone Number [facility] [address] [place] [address] documented in this encounter Visit Diagnoses Diagnosis Abscess of groin, right- Primary Abscess of groin, right Urge incontinence Urinary retention Unspecified retention of urine Acute kidney injury (CMS/HCC) Morbid obesity with BMI of 60.0-69.9, adult (CMS/HCC) Uncontrolled type 2 diabetes mellitus with hyperglycemia, with long-term current use of insulin (CMS/HCC) documented in this encounter Admitting Diagnoses Diagnosis Abscess of groin, right documented in this encounter Administered Medications Inactive Administered Medications - up to 3 most recent administrations Medication Order MAR Action Action Date Dose Rate Site acetaminophen (Tylenol) tablet 650 mg 650 mg, Oral, Every 6 hours PRN, Starting on Thu12/12/24 at 2308, Until 12/17/24 at 1517, Routine, moderate pain, mild pain, headaches, fever Given 12/15/2024 3:58 AM EDT 650 mg Given 12/14/2024 8:14 PM EDT 650 mg Given 12/13/2024 6:17 AM EDT 650 mg atorvastatin (Lipitor) tablet 40 mg 40 mg, Oral, Daily, First dose on Thu12/13/24 at 1600, Until Discontinued, Routine Given 12/17/2024 8:36 AM EDT 40 mg Given 12/16/2024 8:31 AM EDT 40 mg Given 12/15/2024 9:00 AM EDT 40 mg cariprazine (Vraylar) capsule 3 mg 3 mg, Oral, Daily, First dose on Thu12/15/24 at 0900, Until Discontinued Given 12/17/2024 8:36 AM EDT 3 mg Given 12/16/2024 8:31 AM EDT 3 mg Given 12/15/2024 9:00 AM EDT 3 mg dextrose 50 % solution 12.5-25 g 12.5-25 g, Intravenous, Every 15 min PRN, Starting on Thu12/13/24 at 2159, Until 12/17/24 at 1517, Routine, low blood sugar enoxaparin (Lovenox) syringe 60 mg 60 mg, Subcutaneous, 2 times daily, First dose on Thu12/16/24 at 0900, Until Discontinued, Routine Given 12/17/2024 8:35 AM EDT 60 mg Left Lower Abdomen Given 12/16/2024 10:17 PM EDT 60 mg L eft Lower Abdomen Given 12/16/2024 8:31 AM EDT 60 mg Le ft Lower Abdomen gabapentin (Neurontin) capsule 600 mg 600 mg, Oral, 3 times daily, First dose on Thu12/13/24 at 1600, Until Discontinued Given 12/17/2024 8:35 AM EDT 600 m g Given 12/16/2024 10:17 PM EDT 600 mg Given 12/16/2024 5:23 PM EDT 600 mg glucagon (human recombinant) injection 1 mg 1 mg, Intramuscular, Every 15 min PRN, Starting on Thu12/13/24 at 2159, Until 12/17/24 at 1517, Routine, low blood sugar per Hypoglycemia Prevention and Treatment protocol glucose (Glutose) 40 % oral gel 15-30 grams of glucose 15-30 grams of glucose, Sublingual, Every 15 min PRN, Starting on Thu12/13/24 at 2159, Until 12/17/24 at 1517, Routine, low blood sugar, per Hypoglycemia Prevention and Treatment protocol heparin (porcine) injection 7,500 Units 7,500 Units, Subcutaneous, Every 8 hours, First dose on Thu12/13/24 at 0000, Until Discontinued, Routine Given 12/16/2024 1:03 AM EDT 7,500 Units Left Lower Abdomen Given 12/15/2024 5:44 PM EDT 7,500 Units L eft Lower Abdomen Given 12/15/2024 9:00 AM EDT 7,500 Units L eft Lower Abdomen insulin glargine-yfgn 100 UNIT/ML injection 20 Units 20 Units, Subcutaneous, 2 times daily, First dose (after last modification) on Thu12/16/24 at 0915, Until Discontinued, Routine Given 12/17/2024 8:35 AM EDT 20 Units Left Lower Abdomen Given 12/16/2024 10:17 PM EDT 20 Units L eft Lower Abdomen Given 12/16/2024 8:31 AM EDT 20 Units Le ft Lower Abdomen insulin glargine-yfgn 100 UNIT/ML injection 23 Units 23 Units, Subcutaneous, Once, 1 dose, On Thu12/14/24 at 1430, Routine Given 12/14/2024 2:05 PM EDT 23 Units Left Lower Abdomen insulin glargine-yfgn 100 UNIT/ML injection 23 Units 23 Units, Subcutaneous, Nightly, First dose on Thu12/15/24 at 2100, Until Discontinued, Routine Given 12/15/2024 9:54 PM EDT 23 Units Left Lower Abdomen insulin lispro (Admelog) 100 units/mL injection - Correction - Resistant Dose 0-10 Units, Subcutaneous, 3 times daily with meals, First dose on Thu12/13/24 at 1730, Until Discontinued, Routine Given 12/13/2024 6:09 PM EDT 4 Units Left Upper Arm (Back ) insulin lispro (Admelog) 100 units/mL injection - Correction - Resistant Dose 0-10 Units, Subcutaneous, 3 times daily with meals, First dose (after last modification) on Thu12/14/24 at 1730, Until Discontinued, Routine Given 12/17/2024 8:36 AM EDT 2 Units Left Lower Abdomen Given 12/16/2024 5:23 PM EDT 2 Units Le ft Lower Abdomen Given 12/16/2024 1:48 PM EDT 4 Units Le ft Lower Abdomen insulin lispro (Admelog) injection - Correction - Nighttime Dose 0-3 Units, Subcutaneous, 2 times nightly (2100 & 0300), First dose on Thu12/13/24 at 2100, Until Discontinued, Routine Given 12/13/2024 8:51 PM EDT 2 Units Left Lower Abdomen insulin lispro (Admelog) injection - Correction - Nighttime Dose 0-3 Units, Subcutaneous, 2 times nightly (2100 & 0300), First dose on Thu12/14/24 at 2100, Until Discontinued, Routine Insulin Lispro (Admelog, HumaLOG) 100 UNIT/ML injection 12 Units 12 Units, Subcutaneous, 3 times daily with meals, First dose (after last modification) on Thu12/16/24 at 0830, Until Discontinued, Routine Given 12/17/2024 8:36 AM EDT 12 Units Left Lower Abdomen Given 12/16/2024 5:23 PM EDT 12 Units Le ft Lower Abdomen Given 12/16/2024 1:48 PM EDT 12 Units Le ft Lower Abdomen Insulin Lispro (Admelog, HumaLOG) 100 UNIT/ML injection 18 Units 18 Units, Subcutaneous, 3 times daily with meals, First dose on Thu12/14/24 at 1730, Until Discontinued, Routine Given 12/15/2024 5:43 PM EDT 18 Units Left Lower Abdomen Given 12/15/2024 1:30 PM EDT 18 Units Le ft Lower Abdomen Given 12/15/2024 9:01 AM EDT 18 Units Le ft Lower Abdomen Insulin Lispro (Admelog, HumaLOG) 100 UNIT/ML injection 6 Units 6 Units, Subcutaneous, 3 times daily with meals, First dose on Thu12/13/24 at 1730, Until Discontinued, Routine Given 12/13/2024 6:09 PM EDT 6 Units Left Upper Arm (Back ) insulin regular (HumuLIN R,NovoLIN R) 100 units/mL injection - Correction - Resistant Dose 0-10 Units, Subcutaneous, Every 6 hours scheduled, First dose on Thu12/13/24 at 0000, Until Discontinued, Routine Given 12/13/2024 6:16 AM EDT 4 Units Left Upper Arm (Back ) Given 12/12/2024 11:36 PM EDT 4 Units L eft Lower Abdomen insulin regular (HumuLIN, NovoLIN) bolus from bag 1-10 Units 1-10 Units, Intravenous, Once, 1 dose, On Thu12/13/24 at 2245, Routine Bolus from Bag 12/13/2024 10:52 PM EDT 2.7 Units insulin regular in sodium chloride 0.9 % 1 UNIT/ML infusion (Standard Insulin Protocol) 0.5-30 Units/hr (0.5-30 mL/hr), Intravenous, Titrated, Starting on Thu12/13/24 at 2245, Until Thu12/14/24 at 1615, Routine Rate Change - Dual Sign 12/14/2024 12:41 PM EDT 5.35 Units/hr 5.35 mL/hr New Bag 12/14/2024 10:32 AM EDT 4.35 Units/hr 4.35 mL/h r Rate Change - Dual Sign 12/14/2024 8:48 AM EDT 3.35 Units/ hr 3.35 mL/hr ketamine (Ketalar) 40 mg in sodium chloride 0.9 % 50 mL IVPB 40 mg, Intravenous, Once, 1 dose, On Thu12/12/24 at 2345, at 118 mL/hr, Administer over 30 Minutes, Routine New Bag 12/12/2024 11:19 PM EDT 40 mg 118 mL/hr lactated Ringer's infusion 75 mL/hr, Intravenous, Continuous, Starting on Thu12/13/24 at 0100, Until Thu12/14/24 at 1444, Routine New Bag 12/14/2024 2:55 AM EDT 75 mL/hr 75 mL/hr New Bag 12/13/2024 12:48 AM EDT 75 mL/hr 75 mL/hr lidocaine (Xylocaine) 1 % injection 20 mL 20 mL, Infiltration, Once, 1 dose, On Thu12/12/24 at 2330, Routine Given 12/12/2024 11:34 PM EDT 20 mL linezolid (Zyvox) injection 600 mg 600 mg, Intravenous, Every 12 hours, First dose on Thu12/13/24 at 0145, Until Discontinued, Administer over 30 Minutes, Routine New Bag 12/13/2024 1:49 AM EDT 600 mg 600 mL/hr linezolid (Zyvox) injection 600 mg 600 mg, Intravenous, Every 8 hours, First dose (after last modification) on Thu12/13/24 at 0945, Until Discontinued, Administer over 30 Minutes, Routine New Bag 12/16/2024 1:04 AM EDT 600 mg 600 mL/hr New Bag 12/15/2024 5:42 PM EDT 600 mg 600 mL/hr New Bag 12/15/2024 8:59 AM EDT 600 mg 600 mL/hr linezolid (Zyvox) tablet 600 mg 600 mg, Oral, Every 8 hours scheduled, First dose on Thu12/16/24 at 0830, Until Discontinued, Routine Given 12/16/2024 8:31 AM EDT 600 mg LORazepam (Ativan) tablet 1 mg 1 mg, Oral, Daily PRN, Starting on Thu12/13/24 at 1431, Until Thu12/17/24 at 1517, Routine, anxiety Given 12/13/2024 2:42 PM EDT 1 mg magnesium sulfate IVPB 2 g 2 g, Intravenous, Once, 1 dose, On Thu12/15/24 at 0830, at 25 mL/hr, Administer over 2 Hours, Routine New Bag 12/15/2024 8:58 AM EDT 2 g 25 mL/hr magnesium sulfate IVPB 2 g 2 g, Intravenous, Once, 1 dose, On Thu12/16/24 at 0645, at 25 mL/hr, Administer over 2 Hours, Routine New Bag 12/16/2024 6:28 AM EDT 2 g 25 mL/hr magnesium sulfate IVPB 4 g 4 g, Intravenous, Once, 1 dose, On Thu12/13/24 at 0215, Routine New Bag 12/13/2024 2:23 AM EDT 4 g 25 mL/hr metoclopramide (Reglan) tablet 10 mg 10 mg, Oral, 4 times daily, First dose on Thu12/13/24 at 1800, Until Discontinued, Routine Given 12/14/2024 9:16 PM EDT 10 mg Given 12/14/2024 5:53 PM EDT 10 mg Given 12/14/2024 1:23 PM EDT 10 mg mupirocin (Bactroban) 2 % ointment 1 Application Each Nostril, 2 times daily, 10 doses, First dose on Thu12/13/24 at 0900, Last dose on Thu12/17/24 at 2100, Routine Given 12/17/2024 8:36 AM EDT 1 Applic ation Given 12/16/2024 10:17 PM EDT 1 Application Given 12/16/2024 8:31 AM EDT 1 Application ondansetron (Zofran) injection 4 mg 4 mg, Intravenous, Every 6 hours PRN, Starting on Thu12/12/24 at 2308, Until 12/17/24 at 1517, Routine, vomiting, nausea ondansetron ODT (Zofran-ODT) disintegrating tablet 4 mg 4 mg, Oral, Every 6 hours PRN, Starting on Thu12/12/24 at 2308, Until 12/17/24 at 1517, Routine, nausea, vomiting oxyCODONE (Roxicodone) immediate release tablet 10 mg 10 mg, Oral, Every 6 hours PRN, Starting on Thu12/12/24 at 2307, Until Thu12/14/24 at 1032, Routine, severe pain Given 12/14/2024 9:13 AM EDT 10 mg Given 12/13/2024 11:51 PM EDT 10 mg Given 12/13/2024 1:51 PM EDT 10 mg oxyCODONE (Roxicodone) immediate release tablet 10 mg 10 mg, Oral, Every 6 hours PRN, Starting on Thu12/14/24 at 1031, Until 12/17/24 at 1517, Routine, severe pain Given 12/17/2024 12:14 PM EDT 10 mg Given 12/17/2024 6:25 AM EDT 10 mg Given 12/16/2024 10:18 PM EDT 10 mg oxyCODONE (Roxicodone) immediate release tablet 5 mg 5 mg, Oral, Every 6 hours PRN, Starting on Thu12/14/24 at 1031, Until 12/17/24 at 1517, Routine, severe pain pantoprazole (Protonix) EC tablet 40 mg 40 mg, Oral, 2 times daily before meals, First dose on Thu12/13/24 at 1700, Until Discontinued Given 12/17/2024 8: 36 AM EDT 40 mg Given 12/16/2024 5:23 PM EDT 40 mg Given 12/16/2024 8:31 AM EDT 40 mg piperacillin-tazobactam (Zosyn) 4.5 g in sodium chloride 0.9% 100 mL IVPB (vial adapter required) 4.5 g, Intravenous, Every 6 hours, 15 doses, First dose on Thu12/13/24 at 0145, Last dose on Thu12/16/24 at 1345, Routine New Bag 12/16/2024 3:16 PM EDT 4.5 g 36.7 mL/hr New Bag 12/16/2024 6:50 AM EDT 4.5 g 36.7 mL/hr New Bag 12/16/2024 2:28 AM EDT 4.5 g 36.7 mL/hr sodium chloride 0.9 % flush 10 mL 10 mL, Intravenous, Every 12 hours, First dose on Thu12/13/24 at 0000, Until Discontinued, Routine Given 12/16/2024 11:06 PM EDT 10 mL Given 12/16/2024 1:48 PM EDT 10 mL Given 12/16/2024 12:57 AM EDT 10 mL sodium chloride 0.9 % flush 10 mL 10 mL, Intravenous, As needed, Starting on Thu12/12/24 at 2302, Until Thu12/17/24 at 1517, Routine, line care sulfamethoxazole-trimethoprim (Bactrim DS) 800-160 MG per tablet 2 tablet 2 tablet, Oral, 2 times daily, 7 doses, First dose on Thu12/16/24 at 2100, Last dose on Thu12/19/24 at 2100, Routine Given 12/17/2024 8:35 AM EDT 2 tablet s Given 12/16/2024 10:17 PM EDT 2 tablets traZODone (Desyrel) tablet 50 mg 50 mg, Oral, Nightly, First dose on Thu12/13/24 at 2100, Until Discontinued, Routine Given 12/16/2024 10:17 PM EDT 50 mg Given 12/15/2024 9:54 PM EDT 50 mg Given 12/14/2024 8:14 PM EDT 50 mg venlafaxine XR (Effexor-XR) 24 hr capsule 150 mg 150 mg, Oral, Daily, First dose on Thu12/13/24 at 1600, Until Discontinued Given 12/17/2024 8:35 AM EDT 150 mg Given 12/16/2024 8:32 AM EDT 150 mg Given 12/15/2024 9:00 AM EDT 150 mg documented in this encounter Active and Recently Administered Medications Times are shown in EDT. Scheduled Medication Order 12/15/2024 12/16/2024 12/17/2024 atorvastatin (Lipitor) tablet 40 mg 40 mg, Oral, Daily, First dose on Thu12/13/24 at 1600, Until Discontinued, Routine 0900 (Given - Provider: Kev Guadalupe RN) 0831 (Given - Provider: Kev Guadalupe RN) 0836 (Given - Provider: Siri Calvin, LOLA) cariprazine (Vraylar) capsule 3 mg 3 mg, Oral, Daily, First dose on Thu12/15/24 at 0900, Until Discontinued 0900 (Given - Provider: Kev Guadalupe RN) 0831 (Given - Provider: Kev Guadalupe RN) 0836 (Given - Provider: Siri Calvin RN) enoxaparin (Lovenox) syringe 60 mg 60 mg, Subcutaneous, 2 times daily, First dose on Thu12/16/24 at 0900, Until Discontinued, Routine 08 (Given - Provider: Kev Guadalupe RN)2217 (Given - Provider: Micki Miller RN) 0835 (Given - Provider: Siri Calvin RN) gabapentin (Neurontin) capsule 600 mg 600 mg, Oral, 3 times daily, First dose on Thu12/13/24 at 1600, Until Discontinued 0900 (Given - Provider: Kev Guadalupe RN)1748 (Given - Provider: Kev Guadalupe RN)2154 (Given - Provider: Micki Miller, LOLA) 0831 (Given - Provider: Kev Guadalupe RN)1723 (Given - Provider: Kev Guadalupe RN)2217 (Given - Provider: Micki Miller, LOLA) 0835 (Given - Provider: Siri Calvin, LOLA) heparin (porcine) injection 7,500 Units (CANCELED) 7,500 Units, Subcutaneous, Every 8 hours, First dose on Thu12/13/24 at 0000, Until Discontinued, Routine 0058 (Given - Provider: Cyndi Maynard)0900 (Given - Provider: Kev Guadalupe RN)1744 (Given - Provider: Kev Guadalupe RN) 0103 (Given - Provider: Micki Miller, LOLA) insulin glargine-yfgn 100 UNIT/ML injection 20 Units 20 Units, Subcutaneous, 2 times daily, First dose (after last modification) on Thu12/16/24 at 0915, Until Discontinued, Routine 0831 (Given - Provider: Kve Guadalupe RN)221 (Given - Provider: Micki Miller RN) 0835 (Given - Provider: Siri Calvin, LOLA) insulin glargine-yfgn 100 UNIT/ML injection 23 Units (CANCELED) 23 Units, Subcutaneous, Nightly, First dose on Thu12/15/24 at 2100, Until Discontinued, Routine 2154 (Given - Provider: Micki Miller RN) insulin lispro (Admelog) 100 units/mL injection - Correction - Resistant Dose 0-10 Units, Subcutaneous, 3 times daily with meals, First dose (after last modification) on Thu12/14/24 at 1730, Until Discontinued, Routine 0900 (Given - Provider: Kev Guadalupe RN)1331 (Given - Provider: Kev Guadalupe RN)1744 (Given - Provider: Kev Guadalupe RN) 0832 (Given - Provider: Kev Guadalupe RN)1348 (Given - Provider: Kev Guadalupe RN)1723 (Given - Provider: Kev Guadalupe RN) 0836 (Given - Provider: Siri Calvin, LOLA)1230 (Canceled Entry - Provider: Automatic Discharge Provider - Comment: Automatically canceled at discontinue of medication order) insulin lispro (Admelog) injection - Correction - Nighttime Dose 0-3 Units, Subcutaneous, 2 times nightly (2100 & 030), First dose on Thu12/14/24 at 2100, Until Discontinued, Routine 0300 (Canceled Entry - Provider: Cyndi Maynard)2206 (Not Given - Provider: Micki Miller RN - Reason: Order parameters not met) 030 (Not Given - Provider: Micki Miller RN - Reason: Order parameters not met)2218 (Not Given - Provider: Micki Miller RN - Reason: Order parameters not met - Comment: 222) 030 (Not Given - Provider: Micki Miller RN - Reason: Order parameters not met - Comment: 222) Insulin Lispro (Admelog, HumaLOG) 100 UNIT/ML injection 12 Units 12 Units, Subcutaneous, 3 times daily with meals, First dose (after last modification) on Thu12/16/24 at 0830, Until Discontinued, Routine 0831 (Given - Provider: Kev Guadalupe, RN)1348 (Given - Provider: Kev Guadalupe RN)1723 (Given - Provider: Kev Guadalupe RN) 0836 (Given - Provider: Siri Calvin RN)1230 (Canceled Entry - Provider: Automatic Discharge Provider - Comment: Automatically canceled at discontinue of medication order) Insulin Lispro (Admelog, HumaLOG) 100 UNIT/ML injection 18 Units (CANCELED) 18 Units, Subcutaneous, 3 times daily with meals, First dose on Thu12/14/24 at 1730, Until Discontinued, Routine 0901 (Given - Provider: Kev Guadalupe RN)1330 (Given - Provider: Kev Guadalupe RN)1743 (Given - Provider: Kev Guadalupe RN) linezolid (Zyvox) injection 600 mg (CANCELED) 600 mg, Intravenous, Every 8 hours, First dose (after last modification) on Thu12/13/24 at 0945, Until Discontinued, Administer over 30 Minutes, Routine 0058 (New Bag - Provider: Cyndi Maynard)0859 (New Bag - Provider: Kev Guadalupe RN)1742 (New Bag - Provider: Kev Guadalupe, LOLA) 0104 (New Bag - Provider: Micki Miller, LOLA) linezolid (Zyvox) tablet 600 mg (CANCELED) 600 mg, Oral, Every 8 hours scheduled, First dose on Thu12/16/24 at 0830, Until Discontinued, Routine 0831 (Given - Provider: Kev Guadalupe RN) magnesium sulfate IVPB 2 g (COMPLETED) 2 g, Intravenous, Once, 1 dose, On Thu12/15/24 at 0830, at 25 mL/hr, Administer over 2 Hours, Routine 0858 (New Bag - Provider: Kev Guadalupe RN) magnesium sulfate IVPB 2 g (COMPLETED) 2 g, Intravenous, Once, 1 dose, On Thu12/16/24 at 0645, at 25 mL/hr, Administer over 2 Hours, Routine 0628 (New Bag - Provider: Micki Miller, LOLA) mupirocin (Bactroban) 2 % ointment 1 Application Each Nostril, 2 times daily, 10 doses, First dose on Thu12/13/24 at 0900, Last dose on Thu12/17/24 at 2100, Routine 0900 (Given - Provider: Kev Guadalupe RN)2154 (Given - Provider: Micki Miller, LOLA) 0831 (Given - Provider: Kev Guadalupe RN)2217 (Given - Provider: Micki Miller RN) 0836 (Given - Provider: Siri Calvin, LOLA) pantoprazole (Protonix) EC tablet 40 mg 40 mg, Oral, 2 times daily before meals, First dose on Thu12/13/24 at 1700, Until Discontinued 0900 (Given - Provider: Kev Guadalupe RN)1748 (Given - Provider: Kev Guadalupe RN) 0831 (Given - Provider: Kev Guadalupe RN)1723 (Given - Provider: Kev Guadalupe RN) 0836 (Given - Provider: Siri Calvni RN) piperacillin-tazobacta m (Zosyn) 4.5 g in sodium chloride 0.9% 100 mL IVPB (vial adapter required) (COMPLETED) 4.5 g, Intravenous, Every 6 hours, 15 doses, First dose on Thu12/13/24 at 0145, Last dose on Thu12/16/24 at 1345, Routine 0106 (New Bag - Provider: Cyndi Maynard)0858 (New Bag - Provider: Kev Guadalupe RN)1338 (New Bag - Provider: Kev Guadalupe RN)2021 (New Bag - Provider: Micki Miller, LOLA) 0228 (New Bag - Provider: Micki Miller, LOLA)0650 (New Bag - Provider: Micki Miller, LOLA)1516 (New Bag - Provider: Kev Guadalupe RN) polyethylene glycol (Miralax) packet 17 g 17 g, Oral, Daily, First dose on Thu12/17/24 at 1115, Until Discontinued, Routine 1215 (Not Given - Provider: Siri Calvin RN - Reason: Patient/family refused - Comment: discharging) sodium chloride 0.9 % flush 10 mL(Linked Group 1) 10 mL, Intravenous, Every 12 hours, First dose on Thu12/13/24 at 0000, Until Discontinued, Routine 0058 (Given - Provider: Cyndi Maynard)1259 (Given - Provider: Kev Guadalupe, RN) 0057 (Given - Provider: Micki Miller RN)1348 (Given - Provider: Kev Guadalupe RN)2306 (Given - Provider: Micki Miller RN) 1200 (Canceled Entry - Provider: Automatic Discharge Provider - Comment: Automatically canceled at discontinue of medication order) sulfamethoxazole-trime thoprim (Bactrim DS) 800-160 MG per tablet 2 tablet 2 tablet, Oral, 2 times daily, 7 doses, First dose on Thu12/16/24 at 2100, Last dose on Thu12/19/24 at 2100, Routine 2217 (Given - Provider: Micki Miller RN) 0835 (Given - Provider: Siri Calvin, LOLA) traZODone (Desyrel) tablet 50 mg 50 mg, Oral, Nightly, First dose on Thu12/13/24 at 2100, Until Discontinued, Routine 2153 (Given - Provider: Micki Miller RN) 2217 (Given - Provider: Micik Miller RN) venlafaxine XR (Effexor-XR) 24 hr capsule 150 mg 150 mg, Oral, Daily, First dose on Thu12/13/24 at 1600, Until Discontinued 0900 (Given - Provider: Kev Guadalupe RN) 0832 (Given - Provider: Kev Guadalupe RN) 0835 (Given - Provider: Siri Calvin, LOLA) PRN Medication Order 12/15/2024 12/16/2024 12/17/2024 acetaminophen (Tylenol) tablet 650 mg 650 mg, Oral, Every 6 hours PRN, Starting on Thu12/12/24 at 2308, Until 12/17/24 at 1517, Routine, moderate pain, mild pain, headaches, fever 0358 (Given - Provider: Cyndi Maynard) dextrose 50 % solution 12.5-25 g(Linked Group 2) 12.5-25 g, Intravenous, Every 15 min PRN, Starting on Thu12/13/24 at 2159, Until 12/17/24 at 1517, Routine, low blood sugar glucagon (human recombinant) injection 1 mg(Linked Group 2) 1 mg, Intramuscular, Every 15 min PRN, Starting on Thu12/13/24 at 2159, Until 12/17/24 at 1517, Routine, low blood sugar per Hypoglycemia Prevention and Treatment protocol glucose (Glutose) 40 % oral gel 15-30 grams of glucose(Linked Group 2) 15-30 grams of glucose, Sublingual, Every 15 min PRN, Starting on Thu12/13/24 at 2159, Until 12/17/24 at 1517, Routine, low blood sugar, per Hypoglycemia Prevention and Treatment protocol LORazepam (Ativan) tablet 1 mg 1 mg, Oral, Daily PRN, Starting on Thu12/13/24 at 1431, Until 12/17/24 at 1517, Routine, anxiety ondansetron (Zofran) injection 4 mg(Linked Group 3) 4 mg, Intravenous, Every 6 hours PRN, Starting on Thu12/12/24 at 2308, Until 12/17/24 at 1517, Routine, vomiting, nausea ondansetron ODT (Zofran-ODT) disintegrating tablet 4 mg(Linked Group 3) 4 mg, Oral, Every 6 hours PRN, Starting on Thu12/12/24 at 2308, Until 12/17/24 at 1517, Routine, nausea, vomiting oxyCODONE (Roxicodone) immediate release tablet 10 mg(Linked Group 4) 10 mg, Oral, Every 6 hours PRN, Starting on Thu12/14/24 at 1031, Until 12/17/24 at 1517, Routine, severe pain 0358 (Given - Provider: Cyndi Maynard)1338 (Given - Provider: Kev Guadalupe RN)2203 (Given - Provider: Micki Miller RN) 0646 (Given - Provider: Micki Miller RN)1430 (Given - Provider: Kev Guadalupe RN)2218 (Given - Provider: Micki Miller, LOLA) 0625 (Given - Provider: Micki Miller RN)1214 (Given - Provider: Siri Calvni RN) oxyCODONE (Roxicodone) immediate release tablet 5 mg(Linked Group 4) 5 mg, Oral, Every 6 hours PRN, Starting on Thu12/14/24 at 1031, Until 12/17/24 at 1517, Routine, severe pain 0358 (See Alternative - Provider: Cyndi Maynard)1338 (See Alternative - Provider: Kev Guadalupe, RN)2203 (See Alternative - Provider: Micki Miller, RN) 0646 (See Alternative - Provider: Micki Miller, RN)1430 (See Alternative - Provider: Kev Guadalupe, RN)2218 (See Alternative - Provider: Micki Miller, RN) 0625 (See Alternative - Provider: Micki Miller, RN)1214 (See Alternative - Provider: Siri Calvin RN) sodium chloride 0.9 % flush 10 mL(Linked Group 1) 10 mL, Intravenous, As needed, Starting on Thu12/12/24 at 2302, Until 12/17/24 at 1517, Routine, line care Linked Groups Order Group 1: Insert peripheral IV (CANCELED) Once, On Thu12/12/24 at 2303, For 1 occurrence And Saline lock IV (CANCELED) Once, On Thu12/12/24 at 2303, For 1 occurrence And sodium chloride 0.9 % flush 10 mLJump to med 10 mL, Intravenous, Every 12 hours, First dose on Thu12/13/24 at 0000, Until Discontinued, Routine And sodium chloride 0.9 % flush 10 mLJump to med 10 mL, Intravenous, As needed, Starting on Thu12/12/24 at 2302, Until 12/17/24 at 1517, Routine, line care Group 2: glucose (Glutose) 40 % oral gel 15-30 grams of glucoseJump to med 15-30 grams of glucose, Sublingual, Every 15 min PRN, Starting on Thu12/13/24 at 2159, Until 12/17/24 at 1517, Routine, low blood sugar, per Hypoglycemia Prevention and Treatment protocol Or dextrose 50 % solution 12.5-25 gJump to med 12.5-25 g, Intravenous, Every 15 min PRN, Starting on Thu12/13/24 at 2159, Until 12/17/24 at 1517, Routine, low blood sugar Or glucagon (human recombinant) injection 1 mgJump to med 1 mg, Intramuscular, Every 15 min PRN, Starting on Thu12/13/24 at 2159, Until 12/17/24 at 1517, Routine, low blood sugar per Hypoglycemia Prevention and Treatment protocol Group 3: ondansetron ODT (Zofran-ODT) disintegrating tablet 4 mgJump to med 4 mg, Oral, Every 6 hours PRN, Starting on Thu12/12/24 at 2308, Until 12/17/24 at 1517, Routine, nausea, vomiting Or ondansetron (Zofran) injection 4 mgJump to med 4 mg, Intravenous, Every 6 hours PRN, Starting on Thu12/12/24 at 2308, Until 12/17/24 at 1517, Routine, vomiting, nausea Or ondansetron (Zofran) 4 MG/5ML solution 4 mg (CANCELED) 4 mg, Oral, Every 6 hours PRN, Starting on Thu12/12/24 at 2308, Until Tu12/13/24 at 0742, Routine, nausea, vomiting Group 4: oxyCODONE (Roxicodone) immediate release tablet 5 mgJump to med 5 mg, Oral, Every 6 hours PRN, Starting on Thu12/14/24 at 1031, Until 12/17/24 at 1517, Routine, severe pain Or oxyCODONE (Roxicodone) immediate release tablet 10 mgJump to med 10 mg, Oral, Every 6 hours PRN, Starting on Thu12/14/24 at 1031, Until 12/17/24 at 1517, Routine, severe pain documented in this encounter Additional Health Concerns Assessment Noted Time PHQ-9 Depression Total Score: 0 09/14/19 2:29 PM EST A fall risk assessment has been complete d for the patient 09/13/2024 2:29 PM EST A Body Mass Index follow-up plan has been documented for the patient 12/17/2024 11:08 AM EDT documented as of this encounter Care Teams Clinical Reviewer Relationship Specialty Start Date End Date Malcolm Hayward APRN [address] [place] [id number] PCP - General 09/21/23 documented as of this encounter
--- OUTSIDE RECORDS SUMMARY | 2024-12-20 13:30 | XMS_ITS | Encounter Summary ---
Author Organization [facility]atives Address [address] [place] [address] Care Team Providers Care Faucet Polisher Name Role Phone Malcolm Hayward APRN Primary Care Provider [phone] Reason for Visit * Reason Comments Wound Care Encounter Details Date Type Department Care Team (Late st Contact Info) Description 12/20/2024 1:30 PM EDT Office Visit [facility] 1 [place] [address] Betina Shah APRN [address] [place] [address] [address] [place] [address] Localized tissue (HCC) (Primary Dx); Other specified [...] the original note were not included. Subjective 12-20-24-LMB-patient is a 49-year-old male who presents to the wound clinic for his initial visit for a wound related to a right groin abscess. [facility] [...] was also to have been referred to [facility] wound care clinic for an appointment. Patient [...] unspecified documented in this encounter Care Teams Faucet Polisher Relationship Specialty Start Date End Date Malcolm Hayward APRN [address] [place] [address] PCP - General Nurse Practitioner 12/20/24 documented as of this encounter
--- OUTSIDE RECORDS SUMMARY | 2024-12-28 20:33 | XMS_ITS | Encounter Summary ---
Author Organization [facility] Address [address] [id number] Care Team Providers Care Valet Manager Name Role Phone Malcolm Hayward WORM SORTER Primary Care Provider [phone] Reason for Visit * Reason Comments Med Refill Encounter Details Date Type Department Care Team (Late st Contact Info) Description 07/07/2024 Refill [facility] [address] [place] [address] Mayra Torres PA [address] [address] Type 2 diabetes mellitus (CMS/HCC) Social History Tobacco Use Types Packs/Day Years Used Date Smoking Tobacco: Former Cigarettes Smokeless Tobacco: Current Snuff Comments:1 can daily. Alcohol Use Standard Drinks/Week Comments Not Currently 0 (1 standard drink = 0.6 oz pur e alcohol) PHQ-2 Answer Date Recorded Patient Health Questionnaire-2 Score 3 12/24/2022 PHQ-9 Answer Date Recorded Patient Health Questionnaire-9 Score 14 12/24/2022 PHQ-2A Answer Date Recorded Patient Health Questionnaire-2 Score 3 12/24/2022 Sex and Gender Information Value Date Recorded Sex Assigned at Not on file Legal Sex Male 8:50 PM EDT Gender Identity Not on file Sexual Orientation Not on file documented as of this encounter Miscellaneous Notes * Telephone Encounter - Divine Archer APRN - 07/08/2024 12:44 PM EST Refill request received. Labs not up to date. Labs ordered a previous visit, but have not received results. * Telephone Encounter - Sylwia Cleaning PharmD - 07/08/2024 8:46 AM EST Refill request does not meet protocol. Sending to clinic for review. Additional info: Clarification required: Has not had labs drawn as requested. documented in this encounter Plan of Treatment Upcoming Encounters Date Type Department Care Team (Late st Contact Info) Description 03/21/2025 2:40 PM EDT Office Visit [facility] [place] [address] [place] [address] Laureano Jensen MD [address] [place] [id number] 03/29/2025 2:20 PM EDT Office Visit [facility] [address] [place] [address] Pratibha Forde PA [address] [address] documented as of this encounter Visit Diagnoses Diagnosis Type 2 diabetes mellitus documented in this encounter Additional Health Concerns Assessment Noted Time PHQ-9 Depression Total Score: 14 023 12:39 PM EDT A fall risk assessment has been complete d for the patient 12/24/2022 12:39 PM EDT A Body Mass Index follow-up plan has been documented for the patient 01/19/2024 11:31 AM EDT documented as of this encounter Care Teams Valet Manager Relationship Specialty Start Date End Date Malcolm Hayward APRN [address] [place] [address] PCP - General 09/21/23 documented as of this encounter
--- OUTSIDE RECORDS SUMMARY | 2024-12-28 20:34 | XMS_ITS | Encounter Summary ---
Author Organization [facility] Address [address] [place] [address] Care Team Providers Care Medical Staff Coordinator Name Role Phone Malcolm Hayward APRN Primary Care Provider [phone] Encounter Details Date Type Department Care Team (Latest Contact Info) Description 12/20/2024 Travel Social History Tobacco Use Types Packs/Day Years Used Date Smoking Tobacco: Former Cigarettes Smokeless Tobacco: Current Snuff Alcohol Use Standard Drinks/Week Comments Not Currently 0 (1 standard drink = 0.6 oz pure alcohol) former etoh abuse, quit 3 years ago Sex and Gender Information Value Date Recorded Sex Assigned at Not on file Legal Sex Male 6:23 PM CDT Gender Identity Not on file Sexual Orientation Not on file documented as of this encounter Plan of Treatment Not on file documented as of this encounter Visit Diagnoses Not on filedocumented in this encounter Care Teams Medical Staff Coordinator Relationship Specialty Start Date End Date Malcolm Hayward APRN [address] [place] [address] PCP - General Nurse Practitioner 12/20/24 documented as of this encounter
--- OUTSIDE RECORDS SUMMARY | 2024-12-28 20:34 | XMS_ITS | Clinical Summary ---
Author Organization [employer] Address [address] [place] [address] Care Team Providers Care Ice Skating Teacher Name Role Phone Malcolm Hayward APRN Primary Care Provider [phone] Allergies No known active allergies Medications atorvastatin (LIPITOR) 40 MG tablet Take 1 tablet (40 mg total) by mouth nightly. Active bisoprolol (ZEBETA) 5 MG tablet Take 1 tablet (5 mg total) by mouth 2 (two) times daily. Active dilTIAZem (CARDIZEM CD) 120 MG 24 hr capsule Take 1 capsule (120 mg total) by mouth daily. Active torsemide (DEMADEX) 20 MG tablet Take 1 tablet (20 mg total) by mouth 2 (two) times daily. Active gabapentin (NEURONTIN) 600 MG tablet Take 1 tablet (600 mg total) by mouth 3 (three) times daily. Max Daily Amount: 1,800 mg Active HYDROcodone-mary taminophen (NORCO) 10-325 mg per tablet Take 1 tablet by mouth every 6 (six) hours as needed for pain. Max Daily Amount: 4 tablets Active insulin 70/30 NPH-regular human (HumuLIN 70/30, NovoLIN 70/30) 100 unit/mL (70-30) injection Inject 90 Units under the skin 3 (three) times daily before meals. Active cariprazine (Vraylar) 3 mg capsule Take 1 capsule (3 mg total) by mouth daily. Active Xarelto 20 mg tablet Take 1 tablet (20 mg total) by mouth daily. Active venlafaxine XR (EFFEXOR-XR) 150 MG 24 hr capsule Take 1 capsule (150 mg total) by mouth daily. Active omeprazole (PriLOSEC) 40 MG capsule Take 1 capsule (40 mg total) by mouth 2 (two) times daily. Active metFORMIN (GLUCOPHAGE) 1000 MG tablet Take 1 tablet (1,000 mg total) by mouth 2 (two) times daily with breakfast and dinner. 5 Active spironolactone (ALDACTONE) 50 MG tablet Take 1 tablet (50 mg total) by mouth daily. Active traZODone (DESYREL) 100 MG tablet Take 1 tablet (100 mg total) by mouth nightly. Active sulfamethoxazol e-trimethoprim (BACTRIM DS) 800-160 mg per tablet Take 2 tablets by mouth 2 (two) times daily. 5 12/21/19 25 Active Problems No known active problems Encounters Date Type Department Care Team Description 12/20/2024 1:30 PM EDT Office Visit [facility] 1 [place] [address] Betina Shah APRN Localized tissue (HCC) (Primary Dx); Other specified local infections of the skin and subcutaneous tissue; Abscess of right groin; Skin ulcer of groin, with fat layer exposed (HCC); Type 2 diabetes mellitus with hyperglycemia (HCC); Diabetes mellitus with skin ulcer (HCC); Obesity 12/20/2024 Travel from Last 3 Months Social History Tobacco Use Types Packs/Day Years [...] on file Sexual Orientation Not on file Last Filed Vital Signs Vital Sign Reading Time Taken Comments Blood Pressure 145/95 12/20/2024 1:21 PM EDT Pulse 83 12/20/2024 1:21 PM EDT Temperature 36.5 C (97.7 F) 12/20/2024 1:21 PM EDT Respiratory Rate - - Oxygen Saturation - - Inhaled Oxygen Concentration - - Weight - - Height - - Body Mass Index - - Plan of Treatment Health Maintenance Due Date Last Done Comments CT Colonography 1977 Colonoscopy 1977 Colorectal Cancer Screening 1977 Diabetic Kidney Health Evaluation (KED) 1977 FOBT/FIT 1977 Fit-DNA (Cologuard) 1977 Sigmoidoscopy 1977 Diabetic Eye Exam 1987 Diabetic foot exam 1987 Depression Screening (12+) 1989 Tobacco Cessation Counseling and Screening (12+) 1989 HIV Screening 1992 Hepatitis C Screening 1995 DTAP/TDAP/TD VACCINES (1 - Tdap) 1996 Lipid Panel 2012 Medicare Initial AWV [id number] 02/11/2023 COVID-19 VACCINE (3 - season) 2024, 01/25/2021 Hemoglobin A1C 12/20/2024 Influenza Vaccine (Season Ended) 2025 Pneumococcal Vaccine: 0-49 Y ears (3 of 3 - PCV20 or PCV21) 2027 04/26/2020, 12/24/2016 Procedures Procedure Name Priority Date/Time Associated Diagnosis Comments WOUND TREATMENT Routine 12/20/2024 3:35 PM EDT Localized tissue (HCC) Other specified local infections of the skin and subcutaneous tissue Abscess of right groin Skin ulcer of groin, with fat layer exposed (HCC) Type 2 diabetes mellitus with hyperglycemia (HCC) Diabetes mellitus with skin ulcer (HCC) Obesity from Last 3 Months Results * Wound Treatment (12/20/2024 3:35 PM EDT) Betina Shah HYDRATE CONTROL TENDER NURSING PATHWAYS ORDERABLES Melba l Result from Last 3 Months Insurance [place] [address] [place] [address] CROSS/BLUE SHIELD Care Teams Ice Skating Teacher Relationship Specialty Start Date End Date Malcolm Hayward APRN [address] [place] [address] PCP - General Nurse Practitioner 12/20/24
--- OUTSIDE RECORDS SUMMARY | 2024-12-28 20:34 | XMS_ITS | Referral Summary ---
Author Organization [employer] [facility] Address [address] [place] [address] Care Team Providers Care Grocery Store Manager Name Role Phone Malcolm Hayward APRN Primary Care Provider Encounters Date Type Department Care Team Description 12/20/2024 Travel 12/20/2024 1:30 PM EDT Office Visit [facility] [address] [place] [address] Betina Shah APRN Localized tissue (HCC) (Primary Dx); Other specified local infections of the skin and subcutaneous tissue; Abscess of right groin; Skin ulcer of groin, with fat layer exposed (HCC); Type 2 diabetes mellitus with hyperglycemia (HCC); Diabetes mellitus with skin ulcer (HCC); Obesity from Last 3 Months Allergies No known active allergies Medications atorvastatin [...] 25 Active Problems No known active problems Social History Tobacco Use Types Packs/Day Years [...] Mass Index - - Plan of Treatment Not on file Procedures Procedure Name Priority Date/Time Associated Diagnosis [...] Treatment (12/20/2024 3:35 PM EDT) Betina Shah DRUM PULLER NURSING PATHWAYS ORDERABLES Melba don Result from Last 3 Months Insurance MEDICARE PART A B CROSS/BLUE SHIELD Care Teams Grocery Store Manager Relationship Specialty Start Date End Date Malcolm Hayward APRN [address] [place] [address] PCP - General Nurse Practitioner 12/20/24
--- OUTSIDE RECORDS SUMMARY | 2024-12-28 20:35 | XMS_ITS | Encounter Summary ---
Author Organization [facility] Address [address] [id number] Care Team Providers Care Parachute Cushion Installer Name Role Phone Malcolm Hayward SIGNAL TOWER DIRECTOR Primary Care Provider [phone] Reason for Visit * Reason Comments Med Refill Encounter Details Date Type Department Care Team (Late st Contact Info) Description 12/02/[address] [place] Endocrinology [address] [place] [address] Divine Archer, SIGNAL TOWER DIRECTOR [address] [facility] [address] [place] [address] Social History Tobacco Use Types Packs/Day Years Used Date Smoking Tobacco: Former Cigarettes Smokeless Tobacco: Current Snuff Comments:1 can daily. Alcohol Use Standard Drinks/Week Comments Not Currently 0 (1 standard drink = 0.6 oz pur e alcohol) PHQ-2 Answer Date Recorded Patient Health Questionnaire-2 Score 0 09/13/2024 PHQ-9 Answer Date Recorded Patient Health Questionnaire-9 Score 0 09/13/2024 PHQ-2A Answer Date Recorded Patient Health Questionnaire-2 Score 3 12/24/2022 Sex and Gender Information Value Date Recorded Sex Assigned at Not on file Legal Sex Male 8:50 PM EDT Gender Identity Not on file Sexual Orientation Not on file documented as of this encounter Miscellaneous Notes * Telephone Encounter - Frida Johnson - 12/02/2024 3:10 PM EDT PT NEEDS TO CALL FOR AN APPT. * Telephone Encounter - Sylwia Cleaning PharmD - 12/02/2024 1:04 PM EDT Refill request does not meet protocol. Sending to clinic for review. Additional info: Appointment compliance - Patient has not followed up in clinic as requested. Please review for scheduling and if refills are appropriate. documented in this encounter Plan of Treatment Upcoming Encounters Date Type Department Care Team (Late st Contact Info) Description 03/21/2025 2:40 PM EDT Office Visit [facility] [place] [address] [place] [address] Laureano Jensen MD [address] [place] [id number] 03/29/2025 2:20 PM EDT Office Visit [facility] Endocrinology [address] [place] [phone] Pratibha Forde PA [address] [address] documented as of this encounter Visit Diagnoses Not on filedocumented in this encounter Additional Health Concerns Assessment Noted Time PHQ-9 Depression Total Score: 0 09/14/19 25 2:29 PM EST A fall risk assessment has been complete d for the patient 09/13/2024 2:29 PM EST A Body Mass Index follow-up plan has been documented for the patient 09/13/2024 4:46 PM EST documented as of this encounter Care Teams Parachute Cushion Installer Relationship Specialty Start Date End Date Malcolm Hayward APRN [address] [place] [id number] PCP - General 09/21/23 documented as of this encounter
--- OUTSIDE RECORDS SUMMARY | 2024-12-28 20:35 | XMS_ITS | Encounter Summary ---
Author Organization [facility] Address [address] [id number] Care Team Providers Care Label Press Operator Name Role Phone Malcolm Hayward ADALGISA Primary Care Provider [phone] Reason for Visit * Reason Onset Date Comments HCN - Patient Message 10/31/2024 Encounter Details Date Type Department Care Team (Late st Contact Info) Description 10/31/2024 Telephone [facility] [place] [address] [facility] [place] [address] Laureano Jensen MD [address] [place] [address] HCN - Patient Message Social History Tobacco Use Types Packs/Day Years [...] encounter Miscellaneous Notes * Telephone Encounter - Pearl Patel RN - 11/02/2024 4:27 PM EDT SW pt- he stated supervisor sewing room told him he likely didn't give flecainide enough time to work and wanted to know our thoughts. Advised the flecainide made him feel worse, did the opposite of what it was prescribed for, and since stopping it, he's feeling better with better HR. Advised pt he can certainly try it again if he wishes, but if he starts to have those same symptoms again to stop it and let us know. Pt is scared to try it again. We both agreed to remain off flecainide. Advised I will forward EKG and cardiology note to Dr. Jensen once we receive it and call him if any changes need to be made. Pt verbalized understanding and agreeable to plan. * Telephone Encounter - Mary Castellon - 11/02/2024 3:55 PM EDT Clinical Concern/Question Reason for Call: Patient requesting call back from Pearl. Best contact number: [phone] (home) Optimal time of day to reach caller: ANYTIME Additional comments/information from caller: None Note: Please do not reply to this message. Follow-up communication and further actions as a result of this message need to be communicated with the patient directly, if the patient is not active onMyChart. If the patient is active on MyChart, they will receive notification of the communication/outcome via [employer]. * Telephone Encounter - Pearl Patel RN - 11/02/2024 12:36 PM EDT S/W pt- advised since he is seeing his local supervisor sewing room today to go ahead and have them to an EKG. Gave my fax number to have them fax it back to. No further questions at this time. * Telephone Encounter - Carin Escobedo - 11/02/2024 9:20 AM EDT Status Update Call #2 2nd call regarding the status of the initial request. Patient calling back would like call back again from Nurse Pearl, with provider, to discuss a EKG hewas suppose to have had done. Would like to know if he still needs EKG Best contact number: Other: [phone] Optimal time of day to reach caller: ANYTIME Additional comments/information from caller: Note: Please do not reply to this message. Follow-up communication and further actions as a result of this message need to be communicated with the patient directly, if the patient is not active on MyChart. If the patient is active on MyChart, they will receive notification of the communication/outcome via [employer]. * Telephone Encounter - Pearl Patel RN - 10/31/2024 11:16 AM EDT S/W pt- he states he took flecainide for 2 and a half days. By Thursday he felt dizzy, like he was going to pass out, SOA with minimal exertion, and HR was around 113. He stopped flecainide, last dose was Thursday night, and resports he's felt better ever since. Dizziness/presyncope symptoms have resolved. Stills feels SOA when he gets up and moves around, HR is in the 40's this morning. He has an appt with EKG with local supervisor sewing room on Thursday 11/02. He's going to keep this appt andupdate us after the appt. Advised I will review with Dr. Jensen just to update him that pt could not tolerate flecainide and will call pt back if any changes. Removed flecainide from med list. We discussed signs and symptoms to watch for that would warrant a trip to the ER. Pt verbalized understanding and agreeable to plan. * Telephone Encounter - Mahin Horne - 10/31/2024 8:28 AM EDT Patient Phone Message Reason for Call: Pt is requesting a call from Dr. Jensen's nurse Pearl. He did not disclose what the call is regarding. Best contact number and optimal time of day to reach caller: [phone] Note: Please do not reply to this message. Follow-up communication and further actions as a result of this message need to be communicated with the patient directly, if the patient is not active onMyChart. If the patient is active on MyChart, they will receive notification of the communication/outcome via MyChart. documented in this encounter Plan of Treatment Upcoming Encounters Date Type Department Care Team (Late st Contact Info) Description 03/21/2025 2:40 PM EDT Office Visit [facility] [place] [address] [place] [address] Laureano Jensen MD [address] [place] [address] 03/29/2025 2:20 PM EDT [facility] [address] [place] [address] Pratibha Forde PA [address] [address] documented as of this encounter [...] documented as of this encounter Care Teams Label Press Operator Relationship Specialty Start Date End Date Malcolm Hayward APRN [address] [place] [address] PCP - General 09/21/23 documented as of this encounter
--- OUTSIDE RECORDS SUMMARY | 2024-12-28 20:35 | XMS_ITS | Clinical Summary ---
Author Organization [facility] Address [address] [place] [address] Care Team Providers Care Senior Clinical Data Manager Name Role Phone Malcolm Hayward ADALGISA Primary Care Provider [phone] Allergies No known active allergies Medications atorvastatin (Lipitor) 40 MG tablet Take 1 tablet by mouth daily. Active LORazepam (Ativan) 1 MG tablet Take 1 tablet by mouth daily as needed. Active omeprazole (PriLOSEC) [address] capsule Take 1 capsule by mouth 2 times a day. Active rivaroxaban (Xarelto) 20 MG tablet Take 1 tablet by mouth daily. Active traZODone (Desyrel) 100 MG tablet Take 1 tablet by mouth nightly. Active venlafaxine XR (Effoxor-XR) 150 MG 24 hr capsule Take 1 capsule by mouth daily. Active bisoprolol (Zebeta) 5 MG tablet Take 1 tablet by mouth 2 times a day. Active spironolactone (Aldactone) 50 MG tablet Take 1 tablet by mouth daily. Active gabapentin (Neurontin) 600 MG tablet Take 1 tablet by mouth 3 times a day. Active cariprazine (Vraylar) 3 MG capsule Take 1 capsule by mouth daily. Active torsemide (Demadex) 20 MG tablet Take 1 tablet by mouth daily. Active dilTIAZem CD (Cardizem CD) 120 MG 24 hr capsule Take 1 capsule by mouth daily. Active metFORMIN (Glucophage) 1000 MG tabletIndications :Type 2 diabetes mellitus TAKE 1 TAB BY MOUTH 2 (TWO) TIMES A DAY WITH MEALS. MUST COMPLETE LABS FOR FURTHER RESULTS. 180 tablet 1 Active mupirocin (Bactroban) 2 % ointment Apply 1 Application topically 2 times a day. Active albuterol 108 (90 Base) MCG/ACT inhaler Inhale 2 puffs every 4 to 6 hours as needed for wheezing or shortness of breath. Active oxyCODONE (Roxicodone) 5 MG immediate release tablet Take 1 tablet by mouth every 6 hours as needed for severe pain. 9 tablet Active naloxone (Narcan) 4 mg/0.1 mL nasal spray 1. Give 1 spray in nostril for no/slow breathing or cannot wake after opioid use 2. Call 911 3. Repeat in other nostril if symptoms continue 1 each Active ondansetron ODT (Zofran-ODT) 4 MG disintegrating tablet Dissolve 1 tablet on the tongue every 6 hours as needed for nausea or vomiting. 20 tablet Active acetaminophen (Tylenol) 325 MG tablet Take 2 tablets by mouth every 6 hours as needed for pain. Under [place] law, monthly prescriptions (30 days) can be refilled at 25 days and three-month prescriptions (90 days) at 80 days. Please contact the insurance company with questions if refills are denied. 100 tablet Active polyethylene glycol (Miralax) 17 g packet Take 17 g by mouth daily. 30 packet Active insulin NPH-insulin regular (NovoLIN 70/30 FlexPen) (70-30) 100 UNIT/ML injection pen Inject 90 Units under the skin 3 times a day before meals. 15 mL 3 Active furosemide (Lasix) 40 MG tablet Take by mouth 1 (one) time each day. 2024 Discontinued(E ntered in Error) metoclopramide (Reglan) 10 MG tablet Take 1 tablet by mouth 4 times a day. 2024 Discontinued ergocalciferol 1.25 MG (97041 UT) capsule 021 2024 Discontinued(E ntered in Error) HYDROcodone-aceta minophen (Zamicet) 10-325 MG/15ML solution Take 15 mL by mouth 3 times a day as needed. 021 2024 Discontinued(S top Taking at Discharge) lisinopril 10 MG tablet Take 1 tablet (10 mg) by mouth 1 (one) time each day. 2024 Discontinued(E ntered in Error) tamsulosin (Flomax) 0.4 MG 24 hr capsule Take by mouth 1 (one) time each day. 2024 Discontinued(E ntered in Error) promethazine (Phenergan) 25 MG tablet 1 tablet (25 mg). 024 2024 Discontinued(E ntered in Error) insulin aspart protamine-insulin aspart (NovoLOG Mix 70-30) (70-30) 100 UNIT/ML injection vialIndications:T ype 2 diabetes mellitus with hyperglycemia, with long-term current use of insulin (CMS/[facility]) Inject 80 units before each meal 3 times per day titrate as instructed MDD 260 240 mL 025 2024 Discontinued(E ntered in Error) Semaglutide,0.25 or 0.5MG/DOS, (Ozempic, 0.25 or 0.5 MG/DOSE,) 2 MG/3ML solution pen-injectorIndic ations:Type 2 diabetes mellitus with hyperglycemia, with long-term current use of insulin (CMS/HCC) INJECT 0.25 MG UNDER THE SKIN ONCE WEEKLY FOR 4 WEEKS THEN INCREASE TO 0.5 MG WEEKLY 9 mL 025 2024 Discontinued(S top Taking at Discharge) doxycycline (Adoxa) 100 MG tablet Take 1 tablet (100 mg) by mouth 2 (two) times a day. Take with a full glass of water and do not lie down for at least 30 minutes after 2024 Discontinued(E ntered in Error) meloxicam (Mobic) 7.5 MG tablet Take 1 tablet (7.5 mg) by mouth daily. 2024 Discontinued(E ntered in Error) insulin syringe-needle U-100 (B-D INS SYR ULTRAFINE 1CC/30G) 30G X 1/2 1 ML misc Use to inject 3 times daily as directed 100 each 025 2024 Discontinued(E ntered in Error) sulfamethoxazole- trimethoprim (Bactrim DS) 800-160 MG tablet Take 1 tablet by mouth 2 times a day. 025 2024 Discontinued insulin NPH-insulin regular (NovoLIN 70/30 FlexPen) (70-30) 100 UNIT/ML injection pen Inject 90 Units under the skin 3 times a day before meals. 2024 Discontinued sulfamethoxazole- trimethoprim (Bactrim DS) 800-160 MG tabletIndications :Abscess of groin, right Take 2 tablets by mouth 2 times a day for 5 doses. 10 tablet 025 2024 Active Problems Problem Noted Date Diagnosed Date Abscess of groin, right 12/12/2024 Assessment & Plan (12/15/2024 3:31 PM EDT): I&D with yonis drain placement Washout daily and cont dressing changes Abnormal ECG 05/19/2024 Acute kidney injury 05/19/2024 Alcohol abuse 05/19/2024 Anxiety disorder 05/19/2024 Bilateral knee pain 05/19/2024 Callus of foot 05/19/2024 CAP (community acquired pneumonia) 05/19/2024 Cellulitis 05/19/2024 Change of skin color 05/19/2024 Chest wall pain 05/19/2024 CHF (congestive heart failure) 05/19/2024 COPD (chronic obstructive pulmonary disease) 01/2024 Decreased pedal pulses 05/19/2024 Dehydration 05/19/2024 Dependence on supplemental oxygen 05/19/2024 Depression 05/19/2024 Diabetic neuropathy 05/19/2024 Dyspnea 05/19/2024 Edema of both lower extremities 05/19/2024 Epididymitis 05/19/2024 Gastroenteritis 05/19/2024 Hyperglycemia due to type 2 diabetes mellitus Insomnia 05/19/2024 Left lower lobe pneumonia 05/19/2024 Lumbar radiculopathy 05/19/2024 Mood swings 05/19/2024 Nausea 05/19/2024 Noncompliance 05/19/2024 Numbness and tingling of both legs 05/19/2024 Onychodystrophy 05/19/2024 Onychomycosis 05/19/2024 Open wound of second toe of left foot 05/19/2024 Palpitations 05/19/2024 Atrial fibrillation with rapid ventricular respo nse 05/19/2024 Peripheral edema 05/19/2024 Primary osteoarthritis of knees, bilateral 05/19 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 05/19/2024 S/P gastric sleeve procedure 05/19/2024 Sepsis 05/19/2024 Diabetic ulcer of left foot associated with diabetes mellitus due to underlying condition, limited to breakdown of skin 05/19/2024 Smoker unmotivated to quit 05/19/2024 UTI (urinary tract infection) 05/19/2024 Tachycardia 05/19/2024 Neuropathy 09/30/2021 Other hyperlipidemia 12/21/2020 Assessment & Plan (12/21/2020 3:58 PM EDT): Continue statin, requesting labs from OSH Type 2 diabetes 12/21/2020 Overview (04/14/2022): Regulatory Update April 2022 Assessment & Plan (12/21/2020 4:02 PM EDT): Agree w/ pt stopping insulin after bg review. Given pt continued wt loss along with reports of renal disease in recent months requiring following at OSH I have decided to dc metformin. Pt will continue to monitor bg bid and if starts running consistently over 180 will call and we will consider oral. Pt will also call if spike over 250 and will consider prn correction. Labs requested. rto 2 m. Lower back pain 04/22/2019 Hypertension 02/18/2019 Assessment & Plan (12/21/2020 11:33 AM EDT): Having home bp as lows as 80/40. Decrease lisinopril. Pt had backed off bb prescribed per cards asked him to call them bc he has afib and counseled this may cause arrhythmia Edema 02/18/2019 Uncontrolled type 2 diabetes mellitus with hyperglycemia, with long-term current use of insulin 06/14/2018 Assessment & Plan (12/15/2024 3:33 PM EDT): Poorly controlled with A1C of >10 Ongoing monitoring and insulin adjustments for control Is a patient of our endocrine team Microalbuminuria 04/09/2018 Morbid obesity with BMI of 60.0-69.9, adult 12/11 Assessment & Plan (12/15/2024 3:32 PM EDT): Discussions with patient and his about his super morbid obesity Has had gastric sleeve in past Provide support for weight loss efforts Assessment & Plan (12/21/2020 11:32 AM EDT): S/p sleeve in november. Advise f/u per bariatric surgeon. Reviewed we will need to monitor bp and bg and adjust meds w/ wt loos Allergic rhinitis 12/24/2016 QUINN (obstructive sleep apnea) 12/24/2016 Tobacco abuse counseling 12/24/2016 Bone pain 06/27/2014 Encounters Date Type Department Care Team Description 12/21/2024 Telephone [facility] Urology [address] [place] [address] Ana Huddleston I, RN 12/19/2024 Telephone [facility] General Surgery [address], [address] [place] [address] Juliana Guzmán, RN 12/19/2024 Refill [facility] General Surgery [address], [address] [place] [phone] Rachael Berrios APRN 12/12/2024 10:28 PM EDT - 12/17/2024 1:17 PM EDT Hospital Encounter [facility] P[facility] 9 T2 [facility]I [address] [place] [address] Nicole Casas MD Griffen, Margaret M, MD Nickols, Alexis K, MD Abscess of groin, right (Primary Dx); Urge incontinence; Urinary retention; Acute kidney injury (CMS/HCC) Discharge Disposition: Home or Self Care 12/12/2024 Travel 12/09/2024 Orders Only External Location [address] [place] [address] Provider, External 12/09/2024 [facility] [address] [place] [address] Divine Archer, TUBE TELLER Type 2 diabetes mellitus with hyperglycemia, with long-term current use of insulin ([facility]) 12/02/2024 Refill [facility] Endocrinology [address] [place] [address] Divine Archer, TUBE TELLER 10/31/2024 Telephone [facility] [address] [address] Laureano Jensen MD HCN - Patient Message 10/17/2024 Refill [facility] Endocrinology [address] [place] [address] Divine Archer, TUBE TELLER Type 2 diabetes mellitus (Primary Dx) 10/10/2024 Telephone [facility] [address] [address] None, None HCN Clinical Concern/Question 09/28/2024 Telephone [facility] [address] [address] Pearl Patel RN from Last 3 Months Immunizations Immunization Administration Dates Next Due Pneumococcal Conjugate PCV 13 12/24/2016 Family History Medical History Relation Name Comments Alcohol abuse Mother Alcohol abuse Mother's Brother Alcohol abuse Mother's Sister Alcohol abuse Paternal Grandmother Relation Name Status Comments Mother Mother's Brother Mother's Sister Paternal Grandmother Social History Tobacco Use Types Packs/Day Years [...] any time in the past 12 m [facility], were you homeless or living in a correction (including now)? No 12/16/2024 Utilities Answer Date Recorded In the past 12 months has th e [employer], gas, oil, or water company threatened to [...] Mass Index 76.53 12/14/2024 8:00 AM EDT Plan of Treatment Upcoming Encounters Date Type Department Care Team (Late st Contact Info) Description 03/21/2025 2:40 PM EDT Office Visit [facility] [place] [address] [place] [address] Laureano Jensen MD [address] [place] [address] 03/29/2025 2:20 PM EDT Office Visit [facility] Endocrinology [address] [place] [address] Pratibha Forde PA [address] [address] Health Maintenance Due Date Last Done Comments [facility]-HIV Screening 1977 [facility]-Hepatitis C Screening 1977 [facility]-Medicare Annual Wellness (AWV) 1977 [facility]-Infant/Child/Adol SDOH Screenings 1977 Diabetes: Dental Exam 1987 [facility]-DTaP,Tdap,and Td Vaccines (1 - Tdap) 1996 [facility]-Hepatitis B Vaccines (1 of 3 - + 3-dose series) 1996 CT Colonography 2022 Colonoscopy 2022 FIT-DNA 2022 FIT 2022 FOBT 2022 Sigmoidoscopy 2022 [facility]-Colorectal Cancer Screening 2022 [id number] Vaccine (3 - 2023-25 season) 2024 02/22/2021, 01/25/2021 [facility]-Diabetes: Hemoglobin A1C 03/13/202508/2024, 01/13/2024, 12/24/2022, Additional history exists [facility]-Influenza Vaccine (Season Ended) 2025 [facility]- SDOH Screenings 06/17/2025 [facility]-Adult SDOH Screenings 06/17/2025 12/16/2024 [facility]-Depression Screening 09/13/2025 09/13/2024, 0310/2024 [facility]-Pneumococcal Vaccine: Pediatrics (0 to 5 Years) and At-Risk Patients (6 to 49 Years) (3 of 3 - PCV20 or PCV21) 2027 04/26/2020, 12/24/2016 [facility]-Zoster Vaccines (1 of 2) 2027 [facility]-Obesity Intervention Completed 025, 09/13/2024, 01/13/2024, Additional history exists HPV Vaccines Aged Out No longer eligi ble based on patient's age to complete this topic [facility]-HIB Vaccines Aged Out No longer e ligible based on patient's age to complete this topic [facility]-Hepatitis A Vaccines Aged Out No longer eligible based on patient's age to complete this topic [facility]-IPV Vaccines Aged Out No longer e ligible based on patient's age to complete this topic [facility]-Rotavirus Vaccines Aged Out No lo nger eligible based on patient's age to complete this topic Procedures Procedure Name Priority Date/Time Associated Diagnosis [...] PLASMA Routine 12/15/2024 4: 37 AM EDT BASIC METABOLIC PANEL, PLASMA Routine 12/15/2024 4:37 AM EDT MAGNESIUM, PLASMA Routine 12/15/2024 4:3 7 AM EDT POCT GLUCOSE METER UNSOLICITED RESULTS [...] UNSOLICITED RESULTS Routine 12/14/2024 6:32 AM EDT RENAL FUNCTION PANEL, PLASMA Routine 12/14/2024 6:22 AM EDT CBC W/O DIFFERENTIAL Routine 12/14/2024 6:22 AM EDT POCT GLUCOSE [...] 12:50 AM EDT Abscess of groin, right KS DRAIN SKIN ABSCESS COMPLIC Routine 12/13/2024 12:50 AM EDT Abscess of groin, right HEMOGLOBIN A1C Add-On 12/12/2024 11:46 PM EDT PHOSPHORUS, PLASMA Routine 12/12/2024 11 :46 PM EDT MAGNESIUM, PLASMA Routine 12/12/2024 11: 46 PM EDT BASIC METABOLIC PANEL, PLASMA Routine 12/12/2024 11:46 PM EDT CBC W/O DIFFERENTIAL Routine 12/12/2024 11:46 PM EDT POCT GLUCOSE METER UNSOLICITED RESULTS Routine 12/12/2024 11:33 PM EDT US OUTSIDE IMAGES 12/09/2024 8:2 0 AM EDT from Last 3 Months Results * (ABNORMAL) POCT glucose meter (12/17/2024 7:56 AM EDT) Only the most recent of26 resultswithin the time period is included. POCT Glucose 193(H) 74 - 99 mg/dL 12/17/2024 7:58 AM EDT [facility] Comment:Accuracy of a [...] Comment 12/17/2024 7:58 AM EDT [facility] Screener And Blender Operator ID Geo Gonzalez 025 7:58 AM EDT [facility]ALTH[facility]ARE [facility] Device ID [id number] 12/17/2024 7:58 AM EDT [facility]ARE [facility] Specimen Type POC Capillary 12/17/2024 7:58 AM EDT [facility] Blood Capillary blood specimen / Unknown 12/17/2024 7:56 AM EDT 12/17/2024 7:58 AM EDT Rian Robertson MD LAB POINT OF CARE TE ST DOCKED DEVICE UNSOLICITED RESULTS Final Result Performing Organization Address City/[facility]/ZIP Co de Phone Number [facility] [address] [place] [address] * Methicillin Resistant Staphylococcus aureus (MRSA) by PCR (12/16/2024 11:17 AM EDT) [facility] Methicillin Resistant Staphylococcus aureus (MRSA) by PCR [...] to perform high complexity clinical laboratory testing. Leidy Hernandez MD LAB MICROBIOLOGY - GENERAL ORDERABLES Final Result [facility] [address] [place] [address] * (ABNORMAL) CBC W/O Differential (12/16/2024 1:43 AM EDT) Only the most recent of4 resultswithin the time period is included. WBC Count 4.08 3.70 - 10.30 10*3/uL [...] BLOOD ORDERABLES Final Result Performing Organization Address City/[facility]/ZIP Co de Phone Number [facility] [address] [place] [address] * (ABNORMAL) Magnesium (12/16/2024 1:43 AM EDT) Only the most recent of3 resultswithin the time period is included. Magnesium, Plasma 1.7(L) 1.9 - 2.4 mg/dL 12/16/2024 2:30 AM EDT [facility] Blood Venous blood specimen / Unknown Venipuncture / Unknown 12/16/2024 1:43 AM EDT 12/16/2024 1:58 AM EDT Leidy Hernandez MD LAB BLOOD ORDERABLES Final Result Performing Organization Address [facility] Co de Phone Number [facility] [address] [place] [address] * (ABNORMAL) Renal function panel (12/16/2024 1:43 AM EDT) Only the most recent of2 resultswithin the time period is included. Glucose, Plasma 301(H) 74 - 99 mg/dL [...] BLOOD ORDERABLES Final Result Performing Organization Address City/[facility] Co de Phone Number [facility] [address] [place] [address] * Phosphorus (12/15/2024 4:37 AM EDT) Only the most recent of2 resultswithin the time period is included. Phosphorus, Plasma 3.1 2.5 - 4.5 mg/dL 12/15/2024 7:02 AM EDT [facility] Blood Venous blood specimen / Unknown Venipuncture / Unknown 12/15/2024 4:37 AM EDT 12/15/2024 4:47 AM EDT Leidy Hernandez MD LAB BLOOD ORDERABLES Final Result Performing Organization Address City/[facility]/ZIP Co de Phone Number [facility] [address] [place] [address] * (ABNORMAL) Basic Metabolic Panel, Plasma (12/15/2024 4:37 AM EDT) Only the most recent of2 resultswithin the time period is included. Glucose, Plasma 199(H) 74 - 99 mg/dL [...] Final Result [facility] [address] [place] [address] * KS DRAIN SKIN ABSCESS COMPLIC, HC DRAIN SKIN [...] infection Alternatives discussed: No treatment and observation [place] protocol: Procedure explained and questions answered to [...] treatment: Drain placed Packing materials: Vessel loops (Yonis; kerlix) Post-procedure details: Procedure completion: Tolerated well, [...] Adults <6.0% Children and Adolescents <7.5% Source: [place] [employer]. Standards of medical care in diabetes,2017. Diabetes Care.2017:40 (suppl 1):S1-S135. us Nicole Casas MD LAB BLOOD ORDERABLES Melba don Result [facility] [address] [place] [address] * US OUTSIDE IMAGES (12/09/2024 8:20 AM EDT) Anatomical Region Laterality Modality Ultrasound 12/09/2024 8:20 AM EDT us External Provider IMG US PROCEDURES Final Result from Last 3 Months Insurance [facility] [place] [address] Advance Directives * Full Code (Latest Code Status on File) Date Activated Date Inactivated Comments 12/12/2024 11:07 PM 12/17/2024 3:22 PM Question Answer Comments I have reviewed the capacity from the link above and, if needed, have updated to appropriate status: Yes Care Teams Senior Clinical Data Manager Relationship Specialty Start Date End Date Malcolm Hayward APRN [address] [place] [id number] PCP - General 09/21/23
--- OUTSIDE RECORDS SUMMARY | 2024-12-28 20:35 | XMS_ITS | Encounter Summary ---
Author Organization Healthcare Address [address] [id number] Care Team Providers Care Veterinary Milk Specialist Name Role Phone Malcolm Hayward WEB PROGRAMMER Primary Care Provider [phone] Reason for Visit * Reason Comments Med Refill Encounter Details Date Type Department Care Team (Late st Contact Info) Description 12/31/2023 Refill [facility] [address] [place] [address] Earline Loaiza, WEB PROGRAMMER [address] [facility] [address] [place] [address] Type 2 diabetes mellitus (CMS/HCC) Social [...] encounter Miscellaneous Notes * Telephone Encounter - Iman Norris PharmD - 12/31/2023 4:26 PM EDT Per protocol, 1 medication(s), metformin, has been refused due to: Duplicate request documented in this encounter Plan of Treatment Upcoming Encounters Date Type Department Care Team (Late st Contact Info) Description 03/21/2025 2:40 PM EDT Office Visit [facility] [place] [address] [place] [address] Laureano Jensen MD [address] [place] [address] 03/29/2025 2:20 PM EDT Office Visit [facility] Endocrinology [address] [place] [address] Pratibha Forde PA [address] [facility] [address] [place] [address] documented as of this encounter Visit Diagnoses Diagnosis Type 2 diabetes mellitus documented in this encounter Additional Health Concerns Assessment Noted Time PHQ-9 Depression Total Score: 14 023 12:39 PM EDT A fall risk assessment has been complete d for the patient 12/24/2022 12:39 PM EDT A Body Mass Index follow-up plan has been documented for the patient 12/24/2022 1:42 PM EDT documented as of this encounter Care Teams Veterinary Milk Specialist Relationship Specialty Start Date End Date Malcolm Hayward APRN [address] [place] [address] PCP - General 09/21/23 documented as of this encounter
--- OUTSIDE RECORDS SUMMARY | 2024-12-28 20:36 | XMS_ITS | Encounter Summary ---
Author Organization Healthcare Address [address] [id number] Care Team Providers Care Impact Hammer Operator Name Role Phone Malcolm Hayward ADALGISA Primary Care Provider [phone] Encounter Details Date Type Department Care Team (Late st Contact Info) Description 12/19/2024 Telephone [facility] General Surgery [address], [address] [place] [address] Juliana Guzmán RN [facility]-PAV A 7 T2 UNI Social History Tobacco Use Types Packs/Day Years [...] any time in the past 12 m [place], were you homeless or living in a chcf (including now)? No 12/16/2024 Utilities Answer Date [...] encounter Miscellaneous Notes * Telephone Encounter - Juliana Guzmán RN - 12/19/2024 1:30 PM EDT Spoke with patient's . [facility] can see patient as early as tomorrow to discuss concerns. aware and will let patient know. 12/27 appt at cancelled now that [facility] will assume all care ofwound documented in this encounter Plan of Treatment Upcoming Encounters Date Type Department Care Team (Late st Contact Info) Description 03/21/2025 2:40 PM EDT Office Visit [facility] [place] [address] [place] [address] Laureano Jensen MD [address] [place] [address] 03/29/2025 2:20 PM EDT Office Visit [facility] [facility] [address] [place] [address] Pratibha Forde PA [address] [facility] [address] [place] [address] documented as of this encounter [...] documented as of this encounter Care Teams Impact Hammer Operator Relationship Specialty Start Date End Date Malcolm Hayward APRN [address] [place] [address] PCP - General 09/21/23 documented as of this encounter
--- OUTSIDE RECORDS SUMMARY | 2024-12-28 20:36 | XMS_ITS | Encounter Summary ---
Author Organization Healthcare Address [address] [id number] Care Team Providers Care Material Lister Name Role Phone Malcolm Hayward CAT OPERATOR Primary Care Provider [phone] Reason for Visit * Reason Onset Date Comments Med Refill 12/09/2024 Encounter Details Date Type Department Care Team (Late st Contact Info) Description 12/09/2024 [facility] [address] [place] [address] Divine Archer, CAT OPERATOR [address] [facility] [address] [place] [address] Type 2 diabetes mellitus with hyperglycemia, with long-term current use of insulin ([facility]) Social History Tobacco Use Types Packs/Day Years [...] as of this encounter Plan of Treatment Upcoming Encounters Date Type Department Care Team (Late st Contact Info) Description 03/21/2025 2:40 PM EDT Office Visit [facility] [place] Steve [address] [place] [address] Laureano Jensen MD [address] [place] [address] 03/29/2025 2:20 PM EDT Office Visit [facility] Endocrinology [address] [place] [address] Pratibha Forde PA [address] [place] [address] documented as of this encounter Visit Diagnoses Diagnosis Type 2 diabetes mellitus with hyperglycemia, with long-term current use of insulin ([facility]) documented in this encounter Additional Health Concerns Assessment Noted Time PHQ-9 Depression Total Score: 0 09/14/19 25 2:29 PM EST A fall risk assessment has been complete d for the patient 09/13/2024 2:29 PM EST A Body Mass Index follow-up plan has been documented for the patient 09/13/2024 4:46 PM EST documented as of this encounter Care Teams Material Lister Relationship Specialty Start Date End Date Malcolm Hayward APRN [address] [place] [address] PCP - General 09/21/23 documented as of this encounter
--- OUTSIDE RECORDS SUMMARY | 2024-12-28 20:36 | XMS_ITS | Encounter Summary ---
Author Organization Healthcare Address [address] [place] [address] Care Team Providers Care Stock Preparer Name Role Phone Malcolm Hayward ADALGISA Primary Care Provider [phone] Encounter Details Date Type Department Care Team (Late st Contact Info) Description 12/21/2024 Telephone [facility] [address], [address]nd [place] [address] Ana Huddleston I, RN [facility]Y [facility]INIC Social History Tobacco Use Types Packs/Day Years [...] any time in the past 12 m onths, were you homeless or living in a detention (including now)? No 12/16/2024 Utilities Answer Date [...] encounter Miscellaneous Notes * Telephone Encounter - Ana Huddleston I RN - 12/21/2024 2:04 PM EDT Called to schedule urology appointment; patient states he will call back. He would like to schedulecloser to home. documented in this encounter Plan of Treatment Upcoming Encounters Date Type Department Care Team (Late st Contact Info) Description 03/21/2025 2:40 PM EDT Office Visit [facility] [place] Steve [address] [place] [address] Laureano Jensen MD [address] [place] [address] 03/29/2025 2:20 PM EDT Office Visit [facility] Endocrinology [address] [place] [address] Pratibha Forde PA [address] [place] [address] documented as of this encounter [...] documented as of this encounter Care Teams Stock Preparer Relationship Specialty Start Date End Date Malcolm Hayward APRN [address] [place] [address] PCP - General 09/21/23 documented as of this encounter
--- OUTSIDE RECORDS SUMMARY | 2024-12-28 20:36 | XMS_ITS | Encounter Summary ---
Author Organization [facility] Address [address] [id number] Care Team Providers Care Central Sterile Tech Name Role Phone Malcolm Hayward APRN Primary Care Provider [phone] Encounter Details Date Type Department Care Team (Latest Contact Info) Description 12/12/2024 Travel Social History Tobacco Use Types Packs/Day [...] on file documented as of this encounter Functional Status * Calculated C-SSRS Risk Score (Lifetime/Recent) Answer Date of Assessment Author No Risk Indicated 12/12/2024 10:55 PM EDT Cyndi Cordero * Question Answer Date of Assessment Author 1. Wish to be (Past 1 Month) No 025 10:55 PM EDT Cyndi Maynard 2. Non-Specific Active Suici jonny Thoughts (Past 1 Month) No 12/12/2024 10:55 PM EDT Stephie Maynard 6. Suicidal Behavior (Lifetime) No 10:55 PM EDT Cyndi Maynard documented as of this encounter Plan of Treatment Upcoming Encounters Date Type Department Care Team (Late st Contact Info) Description 03/21/2025 2:40 PM EDT Office Visit [facility] [place] Steve [address] [place] [address] Laureano Jensen MD [address] [place] [address] 03/29/2025 2:20 PM EDT Office Visit [facility] [address] [place] [address] Pratibha Forde PA [address] [facility] [address] [place] [address] documented as of this encounter [...] documented as of this encounter Care Teams Central Sterile Tech Relationship Specialty Start Date End Date Malcolm Hayward APRN [address] [place] [address] PCP - General 09/21/23 documented as of this encounter
--- OUTSIDE RECORDS SUMMARY | 2024-12-28 20:36 | XMS_ITS | Encounter Summary ---
Author Organization Healthcare Address [address] [id number] Care Team Providers Care Paste Mixer Liquid Name Role Phone Malcolm Hayward APRN Primary Care Provider [phone] Encounter Details Date Type Department Care Team ([facility] st Contact Info) Description 12/09/2024 Orders Only External Location [address] [place] [address] Provider, External Social History Tobacco Use Types Packs/Day Years [...] Date of Assessment Author No Risk Indicated 12/13/2024 8:00 AM EDT Alba Alvarez, LOLA * Question Answer Date of Assessment Author 1. Wish to be (Past 1 Month) No 025 8:00 AM EDT Alba Alvarez, LOLA 2. Non-Specific Active Suici jonny Thoughts (Past 1 Month) No 12/13/2024 8:00 AM EDT Alba Alvarez , RN 6. Suicidal Behavior (Lifetime) No 8:00 AM EDT Alba Alvarez, RN documented as of this encounter Plan of Treatment Upcoming Encounters Date Type Department Care Team (Late st Contact Info) Description 03/21/2025 2:40 PM EDT Office Visit [facility] [place] Steve [address] [place] [address] Laureano Jensen MD [address] [place] [address] 03/29/2025 2:20 PM EDT Office [facility] Endocrinology [address] [place] [address] Pratibha Forde PA [address] [facility] [address] [place] [address] documented as of this encounter Procedures Procedure Name Priority Date/Time Associated Diagnosis Comments US OUTSIDE IMAGES 12/09/2024 8:20 AM EDT documented in this encounter Results * US OUTSIDE IMAGES (12/09/2024 8:20 AM EDT) Anatomical Region Laterality Modality Ultrasound 12/09/2024 8:20 AM EDT us External Provider IMG US PROCEDURES Final Result documented in this encounter Visit Diagnoses Not on filedocumented [...] documented as of this encounter Care Teams Paste Mixer Liquid Relationship Specialty Start Date End Date Malcolm Hayward APRN [address] [place] [address] PCP - General 09/21/23 documented as of this encounter
--- OUTSIDE RECORDS SUMMARY | 2024-12-28 20:36 | XMS_ITS | Encounter Summary ---
Author Organization Healthcare Address [address] [place] [address] Care Team Providers Care Sand Mixer Operator Name Role Phone Malcolm Hayward ADALGISA Primary Care Provider [phone] Reason for Visit * Reason Onset Date Comments Med Refill 12/19/2024 Encounter Details Date Type Department Care Team (Late st Contact Info) Description 12/19/2024 Refill [facility] [address], 1st [place] [address] Rachael Berrios APRN [address] [place] [address] Social History Tobacco Use Types Packs/Day Years [...] any time in the past 12 m [facility], were you homeless or living in a fpc (including now)? No 12/16/2024 Utilities Answer Date [...] Miscellaneous Notes * Telephone Encounter - Juliana Guzmán, RN - 12/19/2024 11:04 AM EDT Called patient for follow up appointment. Scheduled 12/27/24 at 2:30pm with Melanie King APRN for wound check. Patient aware and agreeable. documented in this encounter Plan of Treatment Upcoming Encounters Date Type Department Care Team (Late st Contact Info) Description 03/21/2025 2:40 PM EDT Office Visit [facility] [place] Steve [address] [place] [address] Laureano Jensen MD [address] [place] [address] 03/29/2025 2:20 PM EDT Office Visit [facility] Endocrinology [address] [place] [address] Pratibha Forde PA [address] [place] [address] documented as of this encounter [...] documented as of this encounter Care Teams Sand Mixer Operator Relationship Specialty Start Date End Date Malcolm Hayward APRN [address] [id number] PCP - General 09/21/23 documented as of this encounter
== END 2024-12-28 23:59 | disposition home or self-care (01) ==
LOC: LAB.DROPOF 20:32
PROVIDERS: PCP Family Medicine; Visit Provider Family Medicine
DX: N39.0 Urinary tract infection, site not specified (principal)
CPT/HCPCS: 87086; 87088

== ENCOUNTER 2025-02-12 08:39 | Emergency (ER) | payer MEDICARE, BC, SELFPAY ==
--- OUTSIDE RECORDS SUMMARY | 2024-12-12 22:28 | XMS_ITS | Encounter Summary ---
Author Organization Healthcare Address [address] [place] [id number] Care Team Providers Care Spark Plug Tester Name Role Phone MainorMalcolm Rodrick DIANA Primary Care Provider [phone] Reason for Referral * Home Health (Routine) - Authorized Specialty Diagnoses / Procedures Referred By Anish conklin Referred To Contact Home Health Services Diagnoses Abscess of groin, right Leidy Hernandez MD [address] [place] [address] Phone: tel: fax: Referral ID Status Reason Start Date Expiration Date Visits Requested Visits Authorized [id number] Authorized Specialty Services Required 12/19/2024 06/20/2026 999 999 * Consultation (Routine) - Authorized Specialty Diagnoses / Procedures Referred By Anish conklin Referred To Contact Urology Diagnoses Urge incontinence Urinary retention Rachael Berrios APRN [address] [place] [address] Phone: tel: fax: [facility] [address] [place] [address] Phone: tel: fax: Referral ID Status Reason Start Date Expiration Date Visits Requested Visits Authorized [id number] Authorized Specialty Services Required 12/17/2024 06/18/2026 1 1 Scheduling Instructions Voiding trial and urge incontinence Reason for Visit * Auth/Cert (Routine) Specialty Diagnoses / Procedures Referred By Contac t Referred To Contact Diagnoses Abscess of groin, right cellulitis w/ abscess formation, needs debridement Nicole Casas MD [address] [address] Phone: tel: fax: [facility] PAVA 9 [address] [place] [address] Phone: tel: Referral ID Status Reason Start Date Expiration Date Visits Re quested Visits Authorized [id number] 1 1 Encounter Details Date Type Department Care Team (Latest Contact Info) Description 12/12/2024 10:28 PM EDT - 12/17/2024 1:17 PM EDT Hospital Encounter MILAN HUYNH 9 [address] [place] [address] Nicole Casas MD [facility] [address] [address] Leidy Hernandez MD [address] [address] Rian Robertson MD [facility] [address] [address] Abscess of groin, right (Primary Dx); Urge incontinence; Urinary retention; Acute kidney injury ([facility]) Discharge Disposition: Home or Self [...] any time in the past 12 m [facility], were you homeless or living in a custodial (including now)? No 12/16/2024 Utilities Answer Date [...] you - You have been referred to [facility] wound care clinic. Call on Thursday for appointment -Follow up with home provider for ongoing diabetic wounds Questions or Concerns and Appointments If there are questions or concerns after discharge from the hospital, call Juliana Guzmán, Nurse Coordinator between 7am-3pm at [phone]. If it is after hours, weekends, and holidays please call [phone] and ask for the resident operations liaison for Emergency General Surgery. For appointments please call our General Surgery Clinic at [phone]. Medication requests should be made between the hours of 9:00 AM to 3:00 PM Thursday thru Thursday. Please note that based upon recent changes to [place] law related to prescribing opioid pain medications, our providers will not provide refills on controlled medications after your hospital discharge following a major surgery or trauma. [place], [place].205 [place] 201 KAR9:260. documented in this encounter Medications at Time of Discharge acetaminophen (Tylenol) 325 MG tablet Take 2 tablets by mouth every 6 hours as needed for pain. Under [place] law, monthly prescriptions (30 days) can be [...] Note Gonzalo Russell 49 y.o. male CSN: [id number] This is a 49 y.o. male patient was admitted to [facility] with the diagnosis of abscess of groin. DM education for automatic A1c>9% Labs: A1C 10.9 12/12/24 FSBG-PRN FSBG FSBG Other FSBG-AC FSBG-HS FSBG-3a POCBG Ranges: 158-301 Home Monitoring Of Diabetes Home Medications for Diabetes: Novolin 70/30 90u tid, metformin 1000mg bid Any barriers/issues getting DM/RX Supplies? No Education Diabetic Education Performed with patient, spouse, and parent(s) Maggie () and Trudy (mom). Medication Education instructions [...] and the diabetic KDPCP diabetes basics booklet, [facility] 60g cho handout, myplate tear sheet, and current insulin dose cheat sheet, A1c and complications Diabetes Education Team Recommendations: pt and family endorses understanding of education without questions at this time. Pt needing insulin vials, glucometer, glucometer strips, glucometer lancets,and syringes prescriptions at discharge. Rachael Berrios with [facility] floor 1 team alerted to DM education completion Education Time 30 minutes Liss Elder * Tnoie Chong RN - 12/17/2024 11:20 AM EDT Images from the original note were not included. 52072 Caring for an Open Surgical Drain ([place] Drain) You?ve had surgery. You now have a temporary tube (drain) placed in the surgical site. The tube removes extra blood or other fluids that may collect at the site. This helps to prevent infection as you heal. You have a type of drain called an open surgical drain ([place] drain). This is a flat, soft tube. [...] Soap ? Clean washcloth ? 2 sterile 2-lexz-cp-4-inch gauze pads ? Clean scissors (if needed [...] Put on the new dressing ? The 8-uxbe-pc-4-inch gauze pad should have a cut in [...] pulled Last Reviewed Date: 2023 00:00:00 ?? 1977-5693 The [employer]ant[employer]. All rights reserved. This information is not [...] doctor before taking any other medicine, including bhxd-dxz-jzgsnfw medicines (for example aspirin), vitamins, herbals, or [...] ? Sensitivity to sunlight Please call your microbiology coordinator, pharmacist, or doctor if you have any questions about thismedicine. * Ruy OnIR - Tonie Connell RN - 12/17/2024 11:03 AM EDT 1087 Oxycodone Oral Tablet, Immediate Release Brand Names: Oxaydo, Roxicodone What is this medicine? Oxycodone (ei-e-VGR-done) is an opioid pain reliever. It is used to treat moderate to severe pain. What should I tell my health care provider before I take this medicine? They need to know if you have any of these conditions: ? Home's disease ? Brain tumor or head injury [...] a special medication guide each time you fruit picker this medicine. ? Overdosage: Taking too [...] should report to your doctor or health adult caregiver as soon as possible: ? allergic reactions [...] attention (report to your doctor or health adult caregiver if they continue or are bothersome): ? constipation ? dry mouth ? itching ? nausea, vomiting ? upset stomach This list may not describe all possible side effects. Call your doctor for medical advice about side effects. You may report side effects to FDA at 7-495-ZXA-5108. Where should I keep my medicine? This [...] location. To find a disposal location, visit World Reviewer/[facility]/[place]. If you cannot take unused medicine to [...] controlled substances: ? Drug Enforcement Agency ([place]AN): http://www.deadiversion.JemstepoDexin Interactive.gov/drug_disposal/takeback/index.htm ? National Association of Drug Diversion Investigators (NADDI): http://rxdrugdropbox.org/ ? [place] Office of Drug Control Policy: http://odcp.ut.gov/Prescription+Drug+Drop+Box+Sites.htm Are there concerns about or ? ? [...] that tracks prescriptions of controlled substances in [place]. The ESTUARDO report tells your doctor if you have been prescribed controlled substances in the past. Doctors must get a ESTUARDO report before prescribing controlled substances. What can I do if the information in my ESTUARDO report is wrong? You or your doctor may contact the dispenser who reported the information to [facility]. If the dispenser agrees that the information should be changed, he or she can fix the ESTUARDO report. However, the dispenser may certify that the report is correct. If that is the case, you or your doctor may then call the [place] Drug Enforcement and Professional Practices Branch at .This will start an investigation of the error. * Jordongrzegorz OnFIRSTHEALTH - Tonie Connell RN - 12/17/2024 11:03 AM EDT Images from the original note were not included. 68600 Taking Care of Your Urinary Catheter Bag [...] chills Last Reviewed Date: 2023 00:00:00 ?? 5082-1565 The [employer]. All rights reserved. This information is not intended as a substitute for professional medical care. Always follow your healthcare professional's instructions. * Ruy HoffmanTonie Ceja RN - 12/17/2024 11:03 AM EDT Images from the original note were not included. 60908 Discharge Instructions: Caring for Your Indwelling Urinary [...] running water. Or use an alcohol-based hand plodding machine operator that contains at least 60% alcohol. ? [...] urine. Last Reviewed Date: 2024 00:00:00 ?? 1157-5164 The [employer]. All rights reserved. This information is not intended as a substitute for professional medical care. Always follow your healthcare professional's instructions. * Ruy Baires - Tonie Connell RN - 12/17/2024 11:02 AM EDT Images from the original note were not included. 38129 Caring for an Open Surgical Drain (Yonis Drain) You?ve had surgery. You now have a temporary tube (drain) placed in the surgical site. The tube removes extra blood or other fluids that may collect at the site. This helps to prevent infection as you heal. You have a type of drain called an open surgical drain ([place] drain). This is a flat, soft tube. [...] Soap ? Clean washcloth ? 2 sterile 9-vvil-jp-4-inch gauze pads ? Clean scissors (if needed [...] Put on the new dressing ? The 8-uewd-qi-4-inch gauze pad should have a cut in [...] pulled Last Reviewed Date: 2023 00:00:00 ?? 4906-3250 The [employer]. All rights reserved. This information is not intended as a substitute for professional medical care. Always follow your healthcare professional's instructions. * Discharge Summary - YashManojlouise Voss APRN - 12/17/2024 10:24 AM EDT Hospitalization Admit Date/Time: 12/12/2024 10:28 PM Admitting Attending: Nicole Casas Discharge Date: 12/17/2024 Discharge Attending Physician: Rian Robertson MD PCP name and Address: Malcolm Hayward APRN [address] [facility] [address] [place] [address] Referring provider name and address: Sebastián Todd MD [address] [facility] [address] [address] Chief Concern, Brief History of Present Illness, and Hospital Course Chief Complaint: Right groin/thigh pain Gonzalo Russell is a 49 y.o. male with PMHx significant for morbid obesity (BMI >70), Afib (on xarelto), T2DM, GERD, AUD (in recovery), cholecystectomy, prior bariatric surgery, and QUINN who presented to the [facility] on 12/12/2024 as a direct admission [...] 6 hours as needed for pain. Under [place] law, monthly prescriptions(30 days) can be refilled [...] Your Medications These medications were sent to [facility] - [place], [place] - [address] [facility] [address] acetaminophen 325 MG tablet naloxone 4 mg/0.1 mL nasal spray ondansetron ODT 4 MG disintegrating tablet oxyCODONE 5 MG immediate release tablet sulfamethoxazole-trimethoprim 800-160 MG tablet Discharge Diagnosis Medical Problems Active and Resolved Hospital Problems Hospital Uncontrolled type 2 diabetes mellitus with hyperglycemia, with long-term current use of insulin ([facility]) Current Assessment & Plan 12/12/2024 Hospital Encounter Written 12/15/2024 3:33 PM by Leidy Hernandez MD Poorly controlled with A1C of >10 Ongoing monitoring and insulin adjustments for control Is a patient of our endocrine team Morbid obesity with BMI of 60.0-69.9, adult ([facility]) Current Assessment & Plan 12/12/2024 [...] you - You have been referred to [facility] wound care clinic. Call on Thursday for appointment -Follow up with home provider for ongoing diabetic wounds Questions or Concerns and Appointments If there are questions or concerns after discharge from the hospital, call Juliana Guzmán, Nurse Coordinator between 7am-3pm at [phone]. If it is after hours, weekends, and holidays please call [phone] and ask for the resident operations liaison for Emergency General Surgery. For appointments please call our General Surgery Clinic at [phone]. Medication requests should be made between the hours of 9:00 AM to 3:00 PM Thursday thru Thursday. Please note that based upon recent changes to [place] law related to prescribing opioid pain medications, our providers will not provide refills on controlled medications after your hospital discharge following a major surgery or trauma. [place] 218[place].172, [place] 218[place].205 & 201 KAR9:260. Outpatient Follow-Up Future Appointments Date Time Provider Department Center 03/21/2025 2:40 PM Laureano Jensen MD [facility] I Pertinent Physical Exam At Time of [...] Note Gonzalo Russell 49 y.o. male CSN: [id number] Admission: 12/12/2024 10:28 PM Primary Problem: Abscess of groin, right Warehouse Associate Driver reviewed chart and spoke with patient to complete this Initial Case Management Assessment. PCP: Malcolm Hayward APRN Emergency Contact: Extended Emergency Contact Information Primary Emergency Contact: Maggie Russell Relation: Spouse Preferred language: Latvian Line Installation Supervisor needed? No Insurance: Primary Visit Coverage Payer Plan Sponsor Code Group Number Group Name THIAGO DAS TRADITIONAL/[place] STATE/FED [facility] [id number] [employer]Meter[employer] Primary Visit Coverage Subscriber Subscriber ID Subscriber Name Subscriber N Subscriber Address [id number] GONZALO RUSSELL [id number] [address] [address] Secondary Visit Coverage Payer Plan Sponsor Code Group Number Group Name MEDICARE MEDICARE A & B Secondary Visit Coverage Subscriber Subscriber ID Subscriber Name Subscriber N Subscriber Address [id number] GONZALO RUSSELL [id number] [address] [id number] Patient information: Lives with and daughter [address] [facility] Living Arrangements: Children, Spouse/Significant other (Lives [...] Dialysis Services: NA Living Will/Advance Directive/Power of Art Psychotherapist /Guardian: Unable to assess: No Have you reviewed your Advance Directive and is it valid for this stay?: Not applicable Advance Directive: Patient would not like information Information Provided on Healthcare Directives: No Pre-existing DNR/DNI Order: No Patient Requests Assistance: No Additional Comments: Per primary treatment team, patient is not medically ready to discharge at this time. and [facility] referrals were made for wound care follow-up. [facility] and [facility] are reviewing referrals. CM spoke with Dolly at [facility] who is reviewing referral and would likely be able to see patient on Thursday, 12/20. Dolly believes they will be able to accept patient, but could not confirm at this time. CM faxed referral to [facility] and left message for return phone call this date. CM also contacted [facility] (where pt has been previously), however the [...] sleeve gastrectomy, and GERD who presented to [facility] as a direct admission following [...] hyperglycemia, with long-term current use of insulin ([facility]) Not Applicable Morbid obesity with BMI of 60.0-69.9, adult ([facility]) Not Applicable Non-Hospital Problems Hypertension Other hyperlipidemia Type 2 diabetes Overview Signed 04/14/2022 4:39 PM by Provider, Administrative Regulatory Update April 2022 Allergic rhinitis Edema Microalbuminuria QUINN (obstructive sleep apnea) Tobacco abuse counseling Neuropathy Abnormal ECG Acute kidney injury ([facility]) Alcohol abuse Anxiety disorder Bilateral knee pain Bone pain Callus of foot CAP (community acquired pneumonia) Cellulitis Change of skin color Chest wall pain CHF (congestive heart failure) ([facility]) COPD (chronic obstructive pulmonary disease) ([facility]) Decreased pedal pulses Dehydration Dependence on supplemental oxygen Depression Diabetic neuropathy ([facility]) Dyspnea Edema of both lower extremities Epididymitis Gastroenteritis Hyperglycemia due to type 2 diabetes mellitus ([facility]) Insomnia Left lower lobe pneumonia Lower back pain Lumbar radiculopathy Mood swings Nausea Noncompliance Numbness and tingling of both legs Onychodystrophy Onychomycosis Open wound of second toe of left foot Palpitations Atrial fibrillation with rapid ventricular response (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) Diabetic ulcer of left foot associated with [...] Edited by: Nato Kaiser MD at 12/16/2024 [id number] Alfonso Milton MD Cosigned by Leidy Hernandez MD at 12/16/2024 9:37 PM EDT Associated attestation - Leidy Hernandez MD - 12/16/2024 9:37 PM EDT I saw and evaluated the patient with the resident/fellow. I discussed the case with the resident/fellow and agree with the findings and plan as documented. Less erythema and no pus Cont wound care Leidy Hernandez MD, FACS fitness specialist Trauma Acute Care Surgery * Assessment & Plan Note - Leidy Hernandez MD - 12/15/2024 3:33 PM EDT Associated Problem(s): Uncontrolled type 2 diabetes mellitus with hyperglycemia, with long-term current use of insulin ([facility]) Poorly controlled with A1C of >10 Ongoing monitoring and insulin adjustments for control Is a patient of our endocrine team * Assessment & Plan Note - Leidy Hernandez MD - 12/15/2024 3:32 PM EDT Associated Problem(s): Morbid obesity with BMI of 60.0-69.9, adult ([facility]) Discussions with patient and his [...] sleeve gastrectomy, and GERD who presented to [facility] as a direct admission following [...] hyperglycemia, with long-term current use of insulin ([facility]) Not Applicable Morbid obesity with BMI of 60.0-69.9, adult ([facility]) Not Applicable Non-Hospital Problems Hypertension Other hyperlipidemia Type 2 diabetes Overview Signed 04/14/2022 4:39 PM by Provider, Administrative Regulatory Update April 2022 Allergic rhinitis Edema Microalbuminuria QUINN (obstructive sleep apnea) Tobacco abuse counseling Neuropathy Abnormal ECG Acute kidney injury ([facility]) Alcohol abuse Anxiety disorder Bilateral knee pain Bone pain Callus of foot CAP (community acquired pneumonia) Cellulitis Change of skin color Chest wall pain CHF (congestive heart failure) ([facility]) COPD (chronic obstructive pulmonary disease) ([facility]) Decreased pedal pulses Dehydration Dependence on supplemental oxygen Depression Diabetic neuropathy ([facility]) Dyspnea Edema of both lower extremities Epididymitis Gastroenteritis Hyperglycemia due to type 2 diabetes mellitus ([facility]) Insomnia Left lower lobe pneumonia Lower back pain Lumbar radiculopathy Mood swings Nausea Noncompliance Numbness and tingling of both legs Onychodystrophy Onychomycosis Open wound of second toe of left foot Palpitations Atrial fibrillation with rapid ventricular response (CMS/HCC) Peripheral edema Primary osteoarthritis of knees, 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 Leidy Hernandez MD, FACS fitness specialist Trauma Acute Care Surgery * Care Plan [...] Oral Intake Outcome: Ongoing, Progressing * Terri Rae PharmD - 12/14/2024 2:18 [...] the video go to this web address: [email or web address] Or, scan this QR code with your smart phone ?? [facility] * Terri Rae PharmD - 12/14/2024 2:18 PM EDT Images from the original note were not included. [id number] Rivaroxaban Brand Name(s): Xarelto? This branded product [...] doctor or pharmacist will give you the rn first assistant's patient information sheet (Medication Guide) when you begin treatment with rivaroxaban and each time you refill your prescription. Read the information carefully and ask your doctor or pharmacist if you have any questions. You can also visit the Food and Drug Administration (FDA) website (https://www.fda.gov/downloads/Drugs/DrugSafety/MKB526772.pdf) or the rn first assistant's website to obtain the Medication Guide. WHY [...] what herbal products you are taking, especially Burnett's wort. ? tell your doctor if you [...] and out of their sight and reach. https://www.Wave BroadbandndGapJumpers.org Unneeded medications should be disposed of in [...] be awakened, immediately call emergency services at 731. Symptoms of overdose may include the following: [...] of all of the prescription and nonprescription (lgvp-apg-lkyhfpk) medicines you are taking, as well as [...] or pharmacist about specific clinical use. The [place] [employer] represents that the information provided hereunder was formulated with a reasonable standard of care, and in conformity with professional standards in the field. The [place] [employer] makes no representations or warranties, express or implied, including, but not limited to, any implied warranty of merchantability and/or fitness for a particular purpose, with respect to such information and specifically disclaims all such warranties. Users are advised that decisions regarding drug therapy are complex medical decisions requiring the independent, informed decision of an appropriate health adult caregiver, and the information is provided for informational purposes only. The entire monograph for a drug should be reviewed for a thorough understanding of the drug's actions, uses and side effects. The [place] [employer] does not endorse or recommend the use of any drug.The information is not a substitute for medical care. AHFS?? Patient Medication Information?. ?? Copyright, 2023. The [place] [employer]System Pharmacists??, [address], [address], [place], [place]. All Rights Reserved. Duplication for commercial use must be authorized by [facility]. Selected Revisions: October 25, 2022. AHFS?? Patient [...] the video go to this web address: [email or web address] Or, scan this QR code with your smart phone ?? [facility] * Progress Notes - Alfonso Milton MD - 12/14/2024 11:48 AM EDT 12/14/24 Gonzalo Russell HPI 49 yo male with PMHx notable for Afib on xarelto, morbid obesity, uncontrolled T2DM, AUD, QUINN, prior sleeve gastrectomy, and GERD who presented to [facility] as a direct admission following [...] Morbid obesity with BMI of 60.0-69.9, adult ([facility] [facility]) Hypertension Other hyperlipidemia Type 2 diabetes Overview Signed 04/14/2022 4:39 PM by Provider, Administrative Regulatory Update April 2022 Allergic rhinitis Edema Microalbuminuria QUINN (obstructive sleep apnea) Tobacco abuse counseling Neuropathy Abnormal ECG Acute kidney injury ([facility]) Alcohol abuse Anxiety disorder Bilateral knee pain Bone pain Callus of foot CAP (community acquired pneumonia) Cellulitis Change of skin color Chest wall pain CHF (congestive heart failure) ([facility]) COPD (chronic obstructive pulmonary disease) ([facility]) Decreased pedal pulses Dehydration Dependence on supplemental oxygen Depression Diabetic neuropathy ([facility]) Dyspnea Edema of both lower extremities Epididymitis Gastroenteritis Hyperglycemia due to type 2 diabetes mellitus ([facility]) Insomnia Left lower lobe pneumonia Lower back pain Lumbar radiculopathy Mood swings Nausea Noncompliance Numbness and tingling of both legs Onychodystrophy Onychomycosis Open wound of second toe of left foot Palpitations Atrial fibrillation with rapid ventricular response ([facility]) Peripheral edema Primary osteoarthritis of knees, 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 male CSN: [id number] Room/Bed 219/219A Nutrition evaluation type: assessment Reason [...] Supplemental oxygen O2 Delivery Method: Nasal cannula [place] Coma Scale Score: 15 Miguel Ángel Scale [...] Weight Evaluation: Extreme Obesity (BMI > 40) [place] Body Weight (kg): 80.9 Percent [place] Body Weight: 316 Adjusted Body Weight (kg): 124.6 Estimated Needs: Kcal/ K Kcal Provided: 2500 Kcal Needs Based On: Adjusted weight Gm Protein/ Kg : 1.2 Protein Provided: 150 Protein Needs Based On: Adjusted weight Metabolic Cart Study Results: Current Nutrition Intake: Diet Order: Adult Diet Diet Texture: Regular Adult Carbohydrate Restriction: Consistent CHO 2 ([id number] Steven, 80 g/meal) Percent Meals Eaten (%): 50-75% Diet Experience and Nutrition History: Diet Education Provided: Will monitor Pertinent home medications: Anglican needs: Nutrition Focused Physical Exam: Physical exam [...] Review Outcome: Ongoing, Progressing Flowsheets (Taken 12/14/2024 0432) Progress: improving Plan of Care Reviewed With: [...] Note Gonzalo Russell 49 y.o. male CSN: [id number] Admission: 12/12/2024 10:28 PM Primary Problem: Abscess [...] surgery, and QUINN who presented to the [facility] on 12/12/2024 as a direct admission [...] well enough to ambulate much. Wound Assessment [place];Granulation Wound Length (cm) 4.4 cm Wound Width (cm) 3.3 cm Wound Surface Area (cm^2) 11.4 cm^2 Treatments Cleansed;Saline Dressing Foam;Dry dressing (polymem and covaderm) Dressing Changed Changed State of Healing Fully granulated Non-staged Wound Description Full thickness Active Orders Date Order Priority Status Authorizing Provider 12/13/24 0924 Apply/Change Wound Dressing 2 Wounds Associated Routine [...] and placed polymem and covaderm. Wound Assessment [place];White;Fibrinous Wound Length (cm) 0.4 cm Wound Width (cm) 0.8 cm Wound Surface Area (cm^2) 0.25 cm^2 Treatments Cleansed;Saline Dressing Foam;Dry dressing (polymem and covaderm) Non-staged Wound Description Full thickness Active Orders Date Order Priority Status Authorizing Provider 12/13/24 142 Apply/Change Wound Dressing 2 Wounds Associated Routine [...] right Incision and Drainage Performed by: Kofi Zamora MD Authorized by: Nicole Casas MD Consent: Consent obtained: Written Consent given by: Patient Risks, benefits, and alternatives were discussed: yes Risks discussed: Bleeding, incomplete drainage and infection Alternatives discussed: No treatment and observation [place] protocol: Procedure explained and questions answered to [...] treatment: Drain placed Packing materials: Vessel loops ([place]; kerlix) Post-procedure details: Procedure completion: Tolerated well, no immediate complications Cosigned by Nicole Casas MD at 12/13/2024 9:14 AM EDT Associated attestation - Nicole Casas MD - 12/13/2024 9:14 AM EDT I was present for the entirety of the procedure(s). * H&P - Ja Cheema MD - 12/13/2024 12:08 AM EDT Images from the original note were not included. [facility] Department of Surgery Division of Acute Care / Emergency General Surgery History & Physical Note Subjective History of Present Illness: Chief Complaint: Right groin/thigh pain Gonzalo Russell is a 49 y.o. male with PMHx significant for morbid obesity (BMI >70), Afib (on xarelto), T2DM, GERD, AUD (in recovery), cholecystectomy, prior bariatric surgery, and QUINN who presented to the [facility] on 12/12/2024 as a direct admission [...] file Social Connections: Unknown (04/24/2023) Received from [facility] Family and Community Support Help with Day-to-Day Activities: Not on file Lonely or Isolated: Not on file Intimate Partner Violence: Unknown (04/24/2023) Received from [facility] Abuse Screen Unsafe at Home or Work/School: Not on file Feels Threatened by Someone?: Not on file Does Anyone Keep You from Contacting Others or Doint Things Outside the Home?: Not on file Physical Sign of Abuse Present: Not on file Housing Stability: Unknown (04/24/2023) Received from [facility] Housing Stability Current Living Arrangements: Not on file Potentially Unsafe Housing Conditions: Not on file Immunizations: Immunization History Administered Date(s) Administered Moderna COVID-19 Vaccine (Software Applications Specialist) 12+ years 01/25/2021, 02/22/2021 Pneumococcal Conjugate PCV [...] after Todd Alegre MD ergocalciferol 1.25 MG (98812 UT) capsule 01/11/21 Todd Alegre MD furosemide (Lasix) 40 MG tablet Take by mouth 1 (one) time each day. Patient not taking: Reported on 09/13/2024 05/10/18 Todd Alegre MD gabapentin (Neurontin) 600 MG tablet 09/05/21 Todd Alegre MD HYDROcodone-acetaminophen ([place]) 10-325 MG tablet 12/27/20 Todd Alegre MD [...] sleeve gastrectomy), and GERD who presented to [facility] as a direct admission following transfer from OSH due to c/f RLE NSTI vs abscess. Bedside incision and debri lexy subsequently performed with local anesthesia and ketamine for moderate sedation and tolerated well; large volume of sanguinopurulent drainage expressed from indurated area overlying medial aspect of proximal R thigh. No organized abscess cavity noted on evaluation. [place] drain and vessel loop left in defects [...] Morbid obesity with BMI of 60.0-69.9, adult ([facility]) Hypertension Other hyperlipidemia Type 2 diabetes Overview Signed 04/14/2022 4:39 PM by Provider, Administrative Regulatory Update April 2022 Allergic rhinitis Edema Microalbuminuria QUINN (obstructive sleep apnea) Tobacco abuse counseling Neuropathy Abnormal ECG Acute kidney injury ([facility]) Alcohol abuse Anxiety disorder Bilateral knee pain Bone pain Callus of foot CAP (community acquired pneumonia) Cellulitis Change of skin color Chest wall pain CHF (congestive heart failure) ([facility]) COPD (chronic obstructive pulmonary disease) ([facility]) Decreased pedal pulses Dehydration Dependence on supplemental oxygen Depression Diabetic neuropathy ([facility]) Dyspnea Edema of both lower extremities Epididymitis Gastroenteritis Hyperglycemia due to type 2 diabetes mellitus ([facility]) Insomnia Left lower lobe pneumonia Lower back pain Lumbar radiculopathy Mood swings Nausea Noncompliance Numbness and tingling of both legs Onychodystrophy Onychomycosis Open wound of second toe of left foot Palpitations Atrial fibrillation with rapid ventricular response ([facility]) Peripheral edema Primary osteoarthritis of knees, 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 [place] [address] Laureano Jensen MD [address] [place] [address] 03/29/2025 2:20 PM EDT Office Visit [facility] Endocrinology [facility] [place] [address] Pratibha Forde PA [address] [place] [address] Scheduled Referrals Name Type Priority Associated Diagnoses Order Schedule Discharge Ambulatory referral to Urology Outpatient Referral Routine Urge incontinence Urinary retention 1 Occurrences starting 12/17/2024 until 06/20/2026 Discharge Ambulatory referral to [facility] Outpatient Referral Routine Abscess of [...] 12:50 AM EDT Abscess of groin, right AR DRAIN SKIN ABSCESS COMPLIC Routine 12/13/2024 12:50 [...] Comment 12/17/2024 7:58 AM EDT [facility] Bakelite Molder ID Geo Gonzalez 025 7:58 AM EDT [facility] Device ID [id number] 12/17/2024 7:58 AM EDT [facility] Specimen Type POC Capillary 12/17/2024 7:58 AM EDT [facility] Blood Capillary blood specimen / Unknown 12/17/2024 7:56 AM EDT 12/17/2024 7:58 AM EDT us Rian Robertson MD LAB POINT OF CARE TE ST DOCKED DEVICE UNSOLICITED RESULTS Final Result [facility] [address] [place] [address] * (ABNORMAL) POCT glucose meter (12/16/2024 8:45 PM EDT) Pathologist [facility] POCT Glucose 222(H) 74 - 99 mg/dL [...] Comment 12/16/2024 8:48 PM EDT [facility] Bakelite Molder Saida Brandon 8:48 PM EDT [facility] Device ID [id number] 12/16/2024 8:48 PM EDT [facility] Specimen Type POC Capillary 12/16/2024 8:48 PM EDT [facility] Blood Capillary blood specimen / Unknown 12/16/2024 8:45 PM EDT 12/16/2024 8:48 PM EDT Leidy Hernandez MD LAB POINT OF CARE TEST DOCKED DEVICE UNSOLICITED RESULTS Final Result [facility] [address] [place] [address] * (ABNORMAL) POCT glucose meter (12/16/2024 5:14 PM EDT) Pathologist [facility] POCT Glucose 179(H) 74 - 99 mg/dL [...] 12/16/2024 5:16 PM EDT [facility] [employer]ite M[employer] Kev Pineda 12/16/2024 5:16 PM EDT [facility] Device ID [id number] 12/16/2024 5:16 PM EDT [facility] Specimen Type POC Capillary 12/16/2024 5:16 PM EDT [facility] Blood Capillary blood specimen / Unknown 12/16/2024 5:14 PM EDT 12/16/2024 5:16 PM EDT us Leidy Hernandez MD LAB POINT OF CARE TEST DOCKED DEVICE UNSOLICITED RESULTS Final Result Performing Organization Address [facility] de Phone Number [facility] [address] [place] [address] * (ABNORMAL) POCT glucose meter (12/16/2024 12:20 PM EDT) [facility] POCT Glucose 210(H) 74 - 99 mg/dL [...] Comment 12/16/2024 5:14 PM EDT [facility] Bakelite Molder ID Kev Guadalupe 12/16/2024 5:14 PM EDT [facility]ARE [facility] Device ID [id number] 12/16/2024 5:14 PM EDT [facility] Specimen Type POC Capillary 12/16/2024 5:14 PM EDT [facility] Blood Capillary blood specimen / Unknown 12/16/2024 12:20 PM EDT 12/16/2024 5:14 PM EDT us Leidy Hernandez MD LAB POINT OF CARE TEST DOCKED DEVICE UNSOLICITED RESULTS Final Result Performing Organization Address City/[facility] Co de Phone Number [facility] [address] [place] [address] * Methicillin Resistant Staphylococcus aureus (MRSA) by PCR (12/16/2024 11:17 AM EDT) [facility] Methicillin Resistant Staphylococcus aureus (MRSA) by PCR Not Detected Not Detected 12/16/2024 5:31 PM EDT [facility] Swab Both anterior nares / Unknown Non-blood Collection / Unknown 12/16/2024 11:17 AM EDT 12/16/2024 3:23 PM EDT Narrative [facility] - 12/16/2024 5:31 PM EDT [...] LAB MICROBIOLOGY - GENERAL ORDERABLES Final Result [facility] [address] [place] [address] * (ABNORMAL) POCT glucose meter (12/16/2024 8:07 AM EDT) [facility] POCT Glucose 203(H) 74 - 99 mg/dL [...] Comment 12/16/2024 8:10 AM EDT [facility] Bakelite Molder ID Kev Guadalupe 12/16/2024 8:10 AM EDT [facility] Device ID [id number] 12/16/2024 8:10 AM EDT [facility] Specimen Type POC Capillary 12/16/2024 8:10 AM EDT [facility] Blood Capillary blood specimen / Unknown 12/16/2024 8:07 AM EDT 12/16/2024 8:10 AM EDT us Leidy Hernandez MD LAB POINT OF CARE TEST DOCKED DEVICE UNSOLICITED RESULTS Final Result [facility] [address] [place] [address] * (ABNORMAL) CBC W/O Differential (12/16/2024 1:43 AM EDT) WBC Count 4.08 3.70 - 10.30 10*3/uL LAB HEMATOLOGY METHOD 12/16/2024 2:10 AM EDT [facility] RBC Count 3.89(L) 4.60 - 6.10 10*6/uL LAB HEMATOLOGY METHOD 12/16/2024 2:10 AM EDT [facility] HGB 9.9(L) 13.7 - 17.5 g/dL LAB HEMATOLOGY METHOD 12/16/2024 2:10 AM EDT [facility] HCT 32.5(L) 40.0 - 51.0 % LAB HEMATOLOGY METHOD 12/16/2024 2:10 AM EDT [facility] Platelet Count 207 155 - 369 10*3/uL LAB HEMATOLOGY METHOD 12/16/2024 2:10 AM EDT [facility] MCV 84 79 - 98 fL LAB HEMATOLOGY METHOD 12/16/2024 2:10 AM EDT [facility] MCH 25.4(L) 26.0 - 32.0 pg LAB HEMATOLOGY METHOD 12/16/2024 2:10 AM EDT [facility] MCHC 30.5(L) 30.7 - 35.5 g/dL LAB HEMATOLOGY METHOD 12/16/2024 2:10 AM EDT [facility] RDW 17.0(H) 11.5 - 14.5 % LAB HEMATOLOGY METHOD 12/16/2024 2:10 AM EDT [facility] MPV 9.4 8.8 - 12.5 fL LAB HEMATOLOGY METHOD 12/16/2024 2:10 AM EDT [facility] nRBC 0.0 <=0.0 per 100 WBCs LAB HEMATOLOGY METHOD 12/16/2024 2:10 AM EDT [facility] Blood Venous blood specimen / Unknown Venipuncture / Unknown 12/16/2024 1:43 AM EDT 12/16/2024 1:59 AM EDT Leidy Hernandez MD LAB BLOOD ORDERABLES Final Result [facility] [address] [place] [address] * (ABNORMAL) Magnesium (12/16/2024 1:43 AM EDT) Magnesium, Plasma 1.7(L) 1.9 - 2.4 mg/dL 12/16/2024 2:30 AM EDT [facility] Blood Venous blood specimen / Unknown Venipuncture / Unknown 12/16/2024 1:43 AM EDT 12/16/2024 1:58 AM EDT Leidy Hernandez MD LAB BLOOD ORDERABLES Final Result Performing Organization Address City/[facility]/ZIP Co de Phone Number [facility] [address] [place] [address] * (ABNORMAL) Renal function panel (12/16/2024 1:43 AM EDT) Glucose, Plasma 301(H) 74 - 99 mg/dL 12/16/2024 2:30 AM EDT [facility] BUN, Plasma 7 7 - 21 mg/dL 12/16/2024 2:30 AM EDT [facility] Creatinine, Plasma 0.62(L) 0.70 - 1.20 mg/dL 12/16/2024 2:30 AM EDT [facility] BUN/Creatinine Ratio 11 12/16/2024 2:30 AM EDT [facility] Sodium, Plasma 135(L) 136 - 145 mmol/L 12/16/2024 2:30 AM EDT [facility] Potassium, Plasma 3.7 3.6 - 4.9 mmol/L 12/16/2024 2:30 AM EDT [facility] Chloride, Plasma 97 97 - 107 mmol/L 12/16/2024 2:30 AM EDT [facility] CO2, Plasma 29 22 - 29 mmol/L 12/16/2024 2:30 AM EDT [facility] Anion Gap 9 6 - 16 mmol/L 12/16/2024 2:30 AM EDT [facility] Total Calcium, Plasma 8.9 8.9 - 10.2 mg/dL 12/16/2024 2:30 AM EDT [facility] Phosphorus, Plasma 2.7 2.5 - 4.5 mg/dL 12/16/2024 2:30 AM EDT [facility] Albumin, Plasma 2.7(L) 3.5 - 5.2 g/dL 12/16/2024 2:30 AM EDT [facility] eGFRcr 118.6 mL/min/1.7 3m*2 12/16/2024 2:30 AM EDT [facility] Comment:Reported eGFRcr in m L/min/1.73m2 is based the CKD-EPI 2020 equation that does not use a race coefficient. Blood Venous blood specimen / Unknown Venipuncture / Unknown 12/16/2024 1:43 AM EDT 12/16/2024 1:58 AM EDT Leidy Hernandez MD LAB BLOOD ORDERABLES Final Result [facility] [address] [place] [address] * (ABNORMAL) POCT glucose meter (12/15/2024 7:35 PM EDT) [facility] POCT Glucose 171(H) 74 - 99 mg/dL [...] 12/15/2024 7:36 PM EDT [facility] Bakelite M[employer] ID Nicole Villafana 12/16/19 7:36 PM EDT [facility] Device ID [id number] 12/15/2024 7:36 PM EDT [facility] Specimen Type POC Capillary 12/15/2024 7:36 PM EDT [facility] Blood Capillary blood specimen / Unknown 12/15/2024 7:35 PM EDT 12/15/2024 7:36 PM EDT Leidy Hernandez MD LAB POINT OF CARE TEST DOCKED DEVICE UNSOLICITED RESULTS Final Result Performing Organization Address [facility] de Phone Number [facility] [address] [place] [address] * (ABNORMAL) POCT glucose meter (12/15/2024 5:19 [...] for testing. Comment 12/15/2024 5:20 PM EDT [facility] Bakelite Molder ID Yocasta Wang 12/15/2024 5:20 PM EDT [facility] Device ID [id number] 12/15/2024 5:20 PM EDT [facility] Specimen Type POC Capillary 12/15/2024 5:20 PM EDT [facility] Blood Capillary blood specimen / Unknown 12/15/2024 5:19 PM EDT 12/15/2024 5:20 PM EDT Leidy Hernandez MD LAB POINT OF CARE TEST DOCKED DEVICE UNSOLICITED RESULTS Final Result Performing Organization Address City/[facility] Co de Phone Number [facility] [address] [place] [address] * (ABNORMAL) POCT glucose meter (12/15/2024 11:53 [...] Comment 12/15/2024 11:55 AM EDT [facility] Bakelite Molder ID Yocasta Wang 12/15/2024 11:55 AM EDT [facility] Device ID [id number] 12/15/2024 11:55 AM EDT [facility] Specimen Type POC Capillary 12/15/2024 11:55 AM EDT [facility] Blood Capillary blood specimen / Unknown 12/15/2024 11:53 AM EDT 12/15/2024 11:55 AM EDT us Leidy Hernandez MD LAB POINT OF CARE TEST DOCKED DEVICE UNSOLICITED RESULTS Final Result Performing Organization Address City/[facility] Co de Phone Number [facility] [address] [place] [address] * (ABNORMAL) POCT glucose meter (12/15/2024 7:55 AM EDT) [facility] POCT Glucose 197(H) 74 - 99 mg/dL [...] Comment 12/15/2024 7:57 AM EDT [facility] Bakelite Molder ID Yocasta Wang 12/15/2024 7:57 AM EDT [facility] Device ID [id number] 12/15/2024 7:57 AM EDT [facility] Specimen Type POC Capillary 12/15/2024 7:57 AM EDT [facility] Blood Capillary blood specimen / Unknown 12/15/2024 7:55 AM EDT 12/15/2024 7:57 AM EDT us Leidy Hernandez MD LAB POINT OF CARE TEST DOCKED DEVICE UNSOLICITED RESULTS Final Result [facility] [address] [place] [address] * (ABNORMAL) CBC W/O Differential (12/15/2024 6:48 AM EDT) WBC Count 4.36 3.70 - 10.30 10*3/uL LAB HEMATOLOGY METHOD 12/15/2024 7:04 AM EDT [facility] RBC Count 4.09(L) 4.60 - 6.10 10*6/uL LAB HEMATOLOGY METHOD 12/15/2024 7:04 AM EDT [facility] HGB 10.3(L) 13.7 - 17.5 g/dL LAB HEMATOLOGY METHOD 12/15/2024 7:04 AM EDT [facility] HCT 33.7(L) 40.0 - 51.0 % LAB HEMATOLOGY METHOD 12/15/2024 7:04 AM EDT [facility] Platelet Count 216 155 - 369 10*3/uL LAB HEMATOLOGY METHOD 12/15/2024 7:04 AM EDT [facility] MCV 82 79 - 98 fL LAB HEMATOLOGY METHOD 12/15/2024 7:04 AM EDT [facility] MCH 25.2(L) 26.0 - 32.0 pg LAB HEMATOLOGY METHOD 12/15/2024 7:04 AM EDT [facility] MCHC 30.6(L) 30.7 - 35.5 g/dL LAB HEMATOLOGY METHOD 12/15/2024 7:04 AM EDT [facility] RDW 17.0(H) 11.5 - 14.5 % LAB HEMATOLOGY METHOD 12/15/2024 7:04 AM EDT [facility] MPV 9.4 8.8 - 12.5 fL LAB HEMATOLOGY METHOD 12/15/2024 7:04 AM EDT [facility] nRBC 0.0 <=0.0 per 100 WBCs LAB HEMATOLOGY METHOD 12/15/2024 7:04 AM EDT [facility] Blood Venous blood specimen / Unknown Venipuncture / Unknown 12/15/2024 6:48 AM EDT 12/15/2024 6:57 AM EDT Leidy Hernandez MD LAB BLOOD ORDERABLES Final Result [facility] [address] [place] [address] * Phosphorus (12/15/2024 4:37 AM EDT) Pathologist [facility] Phosphorus, Plasma 3.1 2.5 - 4.5 mg/dL 12/15/2024 7:02 AM EDT [facility] Blood Venous blood specimen / Unknown Venipuncture / Unknown 12/15/2024 4:37 AM EDT 12/15/2024 4:47 AM EDT us Leidy Hernandez MD LAB BLOOD ORDERABLES Final Result Performing Organization Address [facility]/ZIP Co de Phone Number [facility] [address] [place] [address] * (ABNORMAL) Basic Metabolic Panel, Plasma (12/15/2024 4:37 AM EDT) [facility] Glucose, Plasma 199(H) 74 - 99 mg/dL 12/15/2024 7:02 AM EDT [facility] BUN, Plasma 6(L) 7 - 21 mg/dL 12/15/2024 7:02 AM EDT [facility] Creatinine, Plasma 0.59(L) 0.70 - 1.20 mg/dL 12/15/2024 7:02 AM EDT [facility] BUN/Creatinine Ratio 10 12/15/2024 7:02 AM EDT [facility] Sodium, Plasma 137 136 - 145 mmol/L 12/15/2024 7:02 AM EDT [facility] Potassium, Plasma 3.5(L) 3.6 - 4.9 mmol/L 12/15/2024 7:02 AM EDT [facility] Chloride, Plasma 96(L) 97 - 107 mmol/L 12/15/2024 7:02 AM EDT [facility] CO2, Plasma 29 22 - 29 mmol/L 12/15/2024 7:02 AM EDT [facility] Anion Gap 12 6 - 16 mmol/L 12/15/2024 7:02 AM EDT [facility] Total Calcium, Plasma 8.6(L) 8.9 - 10.2 mg/dL 12/15/2024 7:02 AM EDT [facility] eGFRcr 120.4 mL/min/1.7 3m*2 12/15/2024 7:02 AM EDT [facility] Comment:Reported eGFRcr in m L/min/1.73m2 is based the CKD-EPI 2020 equation that does not use a race coefficient. Blood Venous blood specimen / Unknown Venipuncture / Unknown 12/15/2024 4:37 AM EDT 12/15/2024 4:47 AM EDT us Leidy Hernandez MD LAB BLOOD ORDERABLES Final Result Performing Organization Address City/[facility]/ZIP Co de Phone Number [facility] [address] [place] [address] * (ABNORMAL) Magnesium, Plasma (12/15/2024 4:37 AM EDT) Magnesium, Plasma 1.8(L) 1.9 - 2.4 mg/dL 12/15/2024 5:11 AM EDT [facility] Blood Venous blood specimen / Unknown Venipuncture / Unknown 12/15/2024 4:37 AM EDT 12/15/2024 4:47 AM EDT Leidy Hernandez MD LAB BLOOD ORDERABLES Final Result Performing Organization Address City/[facility]/ZIP Co de Phone Number [facility] [address] [place] [address] * (ABNORMAL) POCT glucose meter (12/14/2024 8:35 [...] Comment 12/14/2024 8:37 PM EDT [facility] Bakelite Molder ID Xiomara Dickinson 12/14/2024 8:37 PM EDT [facility] Device ID [id number] 12/14/2024 8:37 PM EDT [facility] Specimen Type POC Capillary 12/14/2024 8:37 PM EDT [facility] Blood Capillary blood specimen / Unknown 12/14/2024 8:35 PM EDT 12/14/2024 8:37 PM EDT Leidy Hernandez MD LAB POINT OF CARE TEST DOCKED DEVICE UNSOLICITED RESULTS Final Result Performing Organization Address City/[facility] Co de Phone Number [facility] [address] [place] [address] * (ABNORMAL) POCT glucose meter (12/14/2024 5:43 PM EDT) [facility] Signature POCT Glucose 175(H) 74 - 99 [...] Comment 12/14/2024 5:45 PM EDT [facility] Bakelite Molder ID Max Hernandez 12/14/2024 5:45 PM EDT [facility] LAB Device ID [id number] 12/14/2024 5:45 PM EDT [facility] Specimen Type POC Capillary 12/14/2024 5:45 PM EDT [facility] Blood Capillary blood specimen / Unknown 12/14/2024 5:43 PM EDT 12/14/2024 5:45 PM EDT us Leidy Hernandez MD LAB POINT OF CARE TEST DOCKED DEVICE UNSOLICITED RESULTS Final Result Performing Organization Address City/[facility]/ZIP Co de Phone Number [facility] [address] [place] [address] * (ABNORMAL) POCT glucose meter (12/14/2024 4:32 PM EDT) [facility] POCT Glucose 154(H) 74 - 99 mg/dL [...] 12/14/2024 4:33 PM EDT [facility] Bakelite Molder ID Max Hernandez 12/14/2024 4:33 PM EDT [facility] LAB Device ID [id number] 12/14/2024 4:33 PM EDT [facility] Specimen Type POC Capillary 12/14/2024 4:33 PM EDT [facility] Blood Capillary blood specimen / Unknown 12/14/2024 4:32 PM EDT 12/14/2024 4:33 PM EDT Leidy Hernandez MD LAB POINT OF CARE TEST DOCKED DEVICE UNSOLICITED RESULTS Final Result Performing Organization Address City/State/[facility] Co de Phone Number [facility] [address] [place] [address] * (ABNORMAL) POCT glucose meter (12/14/2024 2:50 PM EDT) [facility] POCT Glucose 171(H) 74 - 99 mg/dL [...] 12/14/2024 2:52 PM EDT [facility] Bakelite Molder ID Max Hernandez 12/14/2024 2:52 PM EDT [facility] Device ID [id number] 12/14/2024 2:52 PM EDT [facility] Specimen Type POC Capillary 12/14/2024 2:52 PM EDT [facility] Blood Capillary blood specimen / Unknown 12/14/2024 2:50 PM EDT 12/14/2024 2:52 PM EDT Result [facility] Leidy Hernandez MD LAB POINT OF CARE TEST DOCKED DEVICE UNSOLICITED RESULTS Final Result Performing Organization Address City/[facility] Co de Phone Number [facility] [address] [place] [address] * (ABNORMAL) POCT glucose meter (12/14/2024 1:50 [...] Comment 12/14/2024 1:51 PM EDT [facility] Bakelite Molder ID Max Hernandez 12/14/2024 1:51 PM EDT [facility] LAB Device ID [id number] 12/14/2024 1:51 PM EDT [facility] Specimen Type POC Capillary 12/14/2024 1:51 PM EDT [facility] Blood Capillary blood specimen / Unknown 12/14/2024 1:50 PM EDT 12/14/2024 1:51 PM EDT Result [facility] Leidy Hernandez MD LAB POINT OF CARE TEST DOCKED DEVICE UNSOLICITED RESULTS Final Result Performing Organization Address City/[facility]/ZIP Co de Phone Number [facility] [address] [place] [address] * (ABNORMAL) POCT glucose meter (12/14/2024 12:33 [...] Comment 12/14/2024 12:35 PM EDT [facility] Bakelite Molder ID Yocasta Wang 12/14/2024 12:35 PM EDT [facility]ARE LAB Device ID [id number] 12/14/2024 12:35 PM EDT [facility] Specimen Type POC Capillary 12/14/2024 12:35 PM EDT [facility] Blood Capillary blood specimen / Unknown 12/14/2024 12:33 PM EDT 12/14/2024 12:35 PM EDT us Leidy Hernandez MD LAB POINT OF CARE TEST DOCKED DEVICE UNSOLICITED RESULTS Final Result Performing Organization Address City/State/[facility] Co de Phone Number [facility] [address] [place] [address] * (ABNORMAL) POCT glucose meter (12/14/2024 10:30 AM EDT) [facility] POCT Glucose 193(H) 74 - 99 mg/dL [...] Comment 12/14/2024 10:31 AM EDT [facility] Bakelite Molder ID Max Hernandez 12/14/2024 10:31 AM EDT [facility] LAB Device ID [id number] 12/14/2024 10:31 AM EDT [facility] Specimen Type POC Capillary 12/14/2024 10:31 AM EDT [facility] Blood Capillary blood specimen / Unknown 12/14/2024 10:30 AM EDT 12/14/2024 10:31 AM EDT us Leidy Hernandez MD LAB POINT OF CARE TEST DOCKED DEVICE UNSOLICITED RESULTS Final Result [facility] [address] [place] [address] * (ABNORMAL) POCT glucose meter (12/14/2024 8:44 [...] for testing. Comment 12/14/2024 8:46 AM EDT [facility] Bakelite Molder ID Max Hernandez 12/14/2024 8:46 AM EDT [facility] Device ID [id number] 12/14/2024 8:46 AM EDT [facility] Specimen Type POC Capillary 12/14/2024 8:46 AM EDT [facility] Blood Capillary blood specimen / Unknown 12/14/2024 8:44 AM EDT 12/14/2024 8:46 AM EDT Leidy Hernandez MD LAB POINT OF CARE TEST DOCKED DEVICE UNSOLICITED RESULTS Final Result Performing Organization Address City/[facility]/ZIP Co de Phone Number [facility] [address] [place] [address] * (ABNORMAL) POCT glucose meter (12/14/2024 6:32 [...] 12/14/2024 6:34 AM EDT [facility] Bakelite Molder ID Xiomara Dickinson 12/14/2024 6:34 AM EDT [facility] LAB Device ID [id number] 12/14/2024 6:34 AM EDT [facility] Specimen Type POC Capillary 12/14/2024 6:34 AM EDT [facility] Blood Capillary blood specimen / Unknown 12/14/2024 6:32 AM EDT 12/14/2024 6:34 AM EDT Leidy Hernandez MD LAB POINT OF CARE TEST DOCKED DEVICE UNSOLICITED RESULTS Final Result [facility] [address] [place] [address] * (ABNORMAL) Renal function panel (12/14/2024 6:22 AM EDT) Glucose, Plasma 191(H) 74 - 99 mg/dL 12/14/2024 7:06 AM EDT [facility] BUN, Plasma 7 7 - 21 mg/dL 12/14/2024 7:06 AM EDT [facility] Creatinine, Plasma 0.65(L) 0.70 - 1.20 mg/dL 12/14/2024 7:06 AM EDT [facility] BUN/Creatinine Ratio 11 12/14/2024 7:06 AM EDT [facility] Sodium, Plasma 136 136 - 145 mmol/L 12/14/2024 7:06 AM EDT [facility] Potassium, Plasma 4.6 3.6 - 4.9 mmol/L 12/14/2024 7:06 AM EDT [facility] Comment:Hemolyzed, result ma y be falsely increased. Chloride, Plasma 95(L) 97 - 107 mmol/L 12/14/2024 7:06 AM EDT [facility] CO2, Plasma 32(H) 22 - 29 mmol/L 12/14/2024 7:06 AM EDT [facility] Anion Gap 9 6 - 16 mmol/L 12/14/2024 7:06 AM EDT [facility] Total Calcium, Plasma 8.8(L) 8.9 - 10.2 mg/dL 12/14/2024 7:06 AM EDT [facility] Phosphorus, Plasma 3.8 2.5 - 4.5 mg/dL 12/14/2024 7:06 AM EDT [facility] Albumin, Plasma 2.7(L) 3.5 - 5.2 g/dL 12/14/2024 7:06 AM EDT [facility] eGFRcr 117.0 mL/min/1.7 3m*2 12/14/2024 7:06 AM EDT [facility] Comment:Reported eGFRcr in m L/min/1.73m2 is based the CKD-EPI 2020 equation that does not use a race coefficient. Blood Venous blood specimen / Unknown Venipuncture / Unknown 12/14/2024 6:22 AM EDT 12/14/2024 6:36 AM EDT us Leidy Hernandez MD LAB BLOOD ORDERABLES Final Result [facility] [address] [place] [address] * (ABNORMAL) CBC W/O Differential (12/14/2024 6:22 AM EDT) WBC Count 5.47 3.70 - 10.30 10*3/uL LAB HEMATOLOGY METHOD 12/14/2024 6:45 AM EDT [facility] RBC Count 4.27(L) 4.60 - 6.10 10*6/uL LAB HEMATOLOGY METHOD 12/14/2024 6:45 AM EDT [facility] HGB 10.7(L) 13.7 - 17.5 g/dL LAB HEMATOLOGY METHOD 12/14/2024 6:45 AM EDT [facility] HCT 35.9(L) 40.0 - 51.0 % LAB HEMATOLOGY METHOD 12/14/2024 6:45 AM EDT [facility] Platelet Count 228 155 - 369 10*3/uL LAB HEMATOLOGY METHOD 12/14/2024 6:45 AM EDT [facility] MCV 84 79 - 98 fL LAB HEMATOLOGY METHOD 12/14/2024 6:45 AM EDT [facility] MCH 25.1(L) 26.0 - 32.0 pg LAB HEMATOLOGY METHOD 12/14/2024 6:45 AM EDT [facility] MCHC 29.8(L) 30.7 - 35.5 g/dL LAB HEMATOLOGY METHOD 12/14/2024 6:45 AM EDT [facility] RDW 17.2(H) 11.5 - 14.5 % LAB HEMATOLOGY METHOD 12/14/2024 6:45 AM EDT [facility] MPV 10.1 8.8 - 12.5 fL LAB HEMATOLOGY METHOD 12/14/2024 6:45 AM EDT [facility] nRBC 0.0 <=0.0 per 100 WBCs LAB HEMATOLOGY METHOD 12/14/2024 6:45 AM EDT [facility] Blood Venous blood specimen / Unknown Venipuncture / Unknown 12/14/2024 6:22 AM EDT 12/14/2024 6:36 AM EDT Leidy Hernandez MD LAB BLOOD ORDERABLES Final Result [facility] [address] [place] [address] * (ABNORMAL) POCT glucose meter (12/14/2024 4:54 [...] Comment 12/14/2024 6:32 AM EDT [facility] Bakelite Molder ID Arik Deannaloreta 12/14/2024 6:32 AM EDT [facility] LAB Device ID [id number] 12/14/2024 6:32 AM EDT [facility] Specimen Type POC Capillary 12/14/2024 6:32 AM EDT [facility] Blood Capillary blood specimen / Unknown 12/14/2024 4:54 AM EDT 12/14/2024 6:32 AM EDT Leidy Hernandez MD LAB POINT OF CARE TEST DOCKED DEVICE UNSOLICITED RESULTS Final Result Performing Organization Address [facility] de Phone Number [facility] [address] [place] [address] * (ABNORMAL) POCT glucose meter (12/14/2024 3:02 [...] for testing. Comment 12/14/2024 3:03 AM EDT [facility] Bakelite Molder ID Xiomara Dickinson 12/14/2024 3:03 AM EDT [facility] Device ID [id number] 12/14/2024 3:03 AM EDT [facility] Specimen Type POC Capillary 12/14/2024 3:03 AM EDT [facility] Blood Capillary blood specimen / Unknown 12/14/2024 3:02 AM EDT 12/14/2024 3:03 AM EDT Leidy Hernandez MD LAB POINT OF CARE TEST DOCKED DEVICE UNSOLICITED RESULTS Final Result Performing Organization Address City/[facility] Co de Phone Number [facility] [address] [place] [address] * (ABNORMAL) POCT glucose meter (12/14/2024 12:59 [...] Comment 12/14/2024 1:01 AM EDT [facility] Bakelite Molder ID Xiomara Dickinson 12/14/2024 1:01 AM EDT [facility] LAB Device ID [id number] 12/14/2024 1:01 AM EDT [facility] Specimen Type POC Capillary 12/14/2024 1:01 AM EDT [facility] Blood Capillary blood specimen / Unknown 12/14/2024 12:59 AM EDT 12/14/2024 1:01 AM EDT us Leidy Hernandez MD LAB POINT OF CARE TEST DOCKED DEVICE UNSOLICITED RESULTS Final Result Performing Organization Address City/[facility] Co de Phone Number [facility] [address] [place] [address] * (ABNORMAL) POCT glucose meter (12/13/2024 10:33 [...] Comment 12/13/2024 10:34 PM EDT [facility] Bakelite Molder ID Beth Elise 12/13/2024 10:34 PM EDT [facility] LAB Device ID [id number] 12/13/2024 10:34 PM EDT [facility] Specimen Type POC Capillary 12/13/2024 10:34 PM EDT [facility] Blood Capillary blood specimen / Unknown 12/13/2024 10:33 PM EDT 12/13/2024 10:34 PM EDT us Leidy Hernandez MD LAB POINT OF CARE TEST DOCKED DEVICE UNSOLICITED RESULTS Final Result Performing Organization Address City/[facility]/ZIP Co de Phone Number [facility] [address] [place] [address] * (ABNORMAL) POCT glucose meter (12/13/2024 8:31 PM EDT) Pathologist [facility] POCT Glucose 323(H) 74 - 99 mg/dL [...] Comment 12/13/2024 8:33 PM EDT [facility] Bakelite Molder ID Xiomara Dickinson 12/13/2024 8:33 PM EDT [facility] Device ID [id number] 12/13/2024 8:33 PM EDT [facility] Specimen Type POC Capillary 12/13/2024 8:33 PM EDT [facility] Blood Capillary blood specimen / Unknown 12/13/2024 8:31 PM EDT 12/13/2024 8:33 PM EDT Leidy Hernandez MD LAB POINT OF CARE TEST DOCKED DEVICE UNSOLICITED RESULTS Final Result Performing Organization Address City/State/[facility] Co de Phone Number [facility] [address] [place] [address] * (ABNORMAL) POCT glucose meter (12/13/2024 6:03 PM EDT) Pathologist [facility] POCT Glucose 243(H) 74 - 99 mg/dL [...] 12/13/2024 6:04 PM EDT [facility] Bakelite Molder ID Mingo Gong 12/14/19 6:04 PM EDT [facility] Device ID [id number] 12/13/2024 6:04 PM EDT [facility] Specimen Type POC Capillary 12/13/2024 6:04 PM EDT [facility] Blood Capillary blood specimen / Unknown 12/13/2024 6:03 PM EDT 12/13/2024 6:04 PM EDT Leidy Hernandez MD LAB POINT OF CARE TEST DOCKED DEVICE UNSOLICITED RESULTS Final Result [facility] [address] [place] [address] * (ABNORMAL) POCT glucose meter (12/13/2024 6:09 AM EDT) [facility] POCT Glucose 227(H) 74 - 99 mg/dL [...] 12/13/2024 6:11 AM EDT [facility] Bakelite Molder ID Philippe Day 6:11 AM EDT [facility] Device ID [id number] 12/13/2024 6:11 AM EDT [facility] Specimen Type POC Capillary 12/13/2024 6:11 AM EDT [facility] Blood Capillary blood specimen / Unknown 12/13/2024 6:09 AM EDT 12/13/2024 6:11 AM EDT Nicole Casas MD LAB POINT OF CARE TEST DOCKED DEVICE UNSOLICITED RESULTS Final Result [facility] [address] [place] [address] * AR DRAIN SKIN ABSCESS COMPLIC, HC DRAIN SKIN [...] infection Alternatives discussed: No treatment and observation [place] protocol: Procedure explained and questions answered to [...] treatment: Drain placed Packing materials: Vessel loops ([place]; kerlix) Post-procedure details: Procedure completion: Tolerated well, no immediate complications Nicole Casas MD IN CLINIC/BEDSIDE ORDERAB LES Final Result * (ABNORMAL) Hemoglobin A1c (12/12/2024 11:46 PM EDT) Hemoglobin A1c 10.9(H) <5.7 % 12/13/2024 11:55 AM EDT [facility] Blood Venous blood specimen / Unknown Venipuncture / Unknown 12/12/2024 11:46 PM EDT 12/13/2024 12:06 AM EDT Narrative [facility] - 12/13/2024 11:55 AM EDT HA1C Interpretive Data: Diagnosis of Diabetes: Diabetic > or = 6.5% Pre-diabetic 5.7 to 6.4% Non-diabetic < or = 5.6% Glycemic Targets for Type I and Type II Diabetics: Non- Adults <7.0% Adults <6.0% Children and Adolescents <7.5% Source: [employer]. Standards of medical care in diabetes,2017. Diabetes Care.2017:40 (suppl 1):S1-S135. Nicole Casas MD LAB BLOOD ORDERABLES Melba l Result Performing Organization Address City/[facility]/ZIP Co de Phone Number [facility] [address] [place] [address] * Phosphorus, Plasma (12/12/2024 11:46 PM EDT) Phosphorus, Plasma 2.6 2.5 - 4.5 mg/dL 12/13/2024 12:36 AM EDT [facility] Blood Venous blood specimen / Unknown Venipuncture / Unknown 12/12/2024 11:46 PM EDT 12/13/2024 12:06 AM EDT Nicole Casas MD LAB BLOOD ORDERABLES Melba l Result Performing Organization Address [facility] Co de Phone Number [facility] [address] [place] [address] * (ABNORMAL) Magnesium, Plasma (12/12/2024 11:46 PM EDT) Magnesium, Plasma 1.6(L) 1.9 - 2.4 mg/dL 12/13/2024 12:36 AM EDT [facility] Blood Venous blood specimen / Unknown Venipuncture / Unknown 12/12/2024 11:46 PM EDT 12/13/2024 12:06 AM EDT Nicole Casas MD LAB BLOOD ORDERABLES Melba l Result [facility] [address] [place] [address] * (ABNORMAL) Basic metabolic panel (12/12/2024 11:46 PM EDT) Glucose, Plasma 214(H) 74 - 99 mg/dL 12/13/2024 12:36 AM EDT [facility] BUN, Plasma 10 7 - 21 mg/dL 12/13/2024 12:36 AM EDT [facility] Creatinine, Plasma 0.60(L) 0.70 - 1.20 mg/dL 12/13/2024 12:36 AM EDT [facility] BUN/Creatinine Ratio 17 12/13/2024 12:36 AM EDT [facility] Sodium, Plasma 136 136 - 145 mmol/L 12/13/2024 12:36 AM EDT [facility] Potassium, Plasma 3.6 3.6 - 4.9 mmol/L 12/13/2024 12:36 AM EDT [facility] Chloride, Plasma 93(L) 97 - 107 mmol/L 12/13/2024 12:36 AM EDT [facility] CO2, Plasma 31(H) 22 - 29 mmol/L 12/13/2024 12:36 AM EDT [facility] Anion Gap 12 6 - 16 mmol/L 12/13/2024 12:36 AM EDT [facility] Total Calcium, Plasma 8.9 8.9 - 10.2 mg/dL 12/13/2024 12:36 AM EDT [facility] eGFRcr 119.8 mL/min/1.7 3m*2 12/13/2024 12:36 AM EDT [facility] Comment:Reported eGFRcr in m L/min/1.73m2 is based the CKD-EPI 2020 equation that does not use a race coefficient. Blood Venous blood specimen / Unknown Venipuncture / Unknown 12/12/2024 11:46 PM EDT 12/13/2024 12:06 AM EDT Nicole Casas MD LAB BLOOD ORDERABLES Melba l Result [facility] [address] [place] [address] * (ABNORMAL) CBC W/O Differential (12/12/2024 11:46 PM EDT) WBC Count 6.88 3.70 - 10.30 10*3/uL LAB HEMATOLOGY METHOD 12/13/2024 12:15 AM EDT [facility] RBC Count 4.52(L) 4.60 - 6.10 10*6/uL LAB HEMATOLOGY METHOD 12/13/2024 12:15 AM EDT [facility] HGB 11.4(L) 13.7 - 17.5 g/dL LAB HEMATOLOGY METHOD 12/13/2024 12:15 AM EDT [facility] HCT 36.4(L) 40.0 - 51.0 % LAB HEMATOLOGY METHOD 12/13/2024 12:15 AM EDT [facility] Platelet Count 257 155 - 369 10*3/uL LAB HEMATOLOGY METHOD 12/13/2024 12:15 AM EDT [facility] MCV 81 79 - 98 fL LAB HEMATOLOGY METHOD 12/13/2024 12:15 AM EDT [facility] MCH 25.2(L) 26.0 - 32.0 pg LAB HEMATOLOGY METHOD 12/13/2024 12:15 AM EDT [facility] MCHC 31.3 30.7 - 35.5 g/dL LAB HEMATOLOGY METHOD 12/13/2024 12:15 AM EDT [facility] RDW 16.9(H) 11.5 - 14.5 % LAB HEMATOLOGY METHOD 12/13/2024 12:15 AM EDT [facility] MPV 10.0 8.8 - 12.5 fL LAB HEMATOLOGY METHOD 12/13/2024 12:15 AM EDT [facility] nRBC 0.0 <=0.0 per 100 WBCs LAB HEMATOLOGY METHOD 12/13/2024 12:15 AM EDT [facility] Blood Venous blood specimen / Unknown Venipuncture / Unknown 12/12/2024 11:46 PM EDT 12/13/2024 12:06 AM EDT us Nicole Casas MD LAB BLOOD ORDERABLES Melba don Result [facility] [address] [place] [address] * (ABNORMAL) POCT glucose meter (12/12/2024 11:33 PM EDT) POCT Glucose 216(H) 74 - 99 mg/dL 12/12/2024 11:36 PM EDT [facility] Comment:Accuracy of a glucos e result [...] Comment 12/12/2024 11:36 PM EDT [facility] Bakelite Molder ID Philippe Day 11:36 PM EDT [facility] Device ID [id number] 12/12/2024 11:36 PM EDT [facility] Specimen Type POC Capillary 12/12/2024 11:36 PM EDT [facility] Blood Capillary blood specimen / Unknown 12/12/2024 11:33 PM EDT 12/12/2024 11:36 PM EDT Nicole Casas MD LAB POINT OF CARE TEST DOCKED DEVICE UNSOLICITED RESULTS Final Result Performing Organization Address City/State/[facility] Co de Phone Number [facility] [address] [place] [address] documented in this encounter Visit Diagnoses Diagnosis [...] Routine 0831 (Given - Provider: Kev Guadalupe RN)221 (Given - Provider: Micki Miller [...] 0836 (Given - Provider: Siri Calvin RN) piperacillin-tazobacta m (Zosyn) 4.5 g in [...] Micki Miller RN) 2217 (Given - Provider: Micki Miller RN) venlafaxine XR (Effexor-XR) 24 hr [...] Micki Miller RN)1214 (Given - Provider: Siri Calvin RN) oxyCODONE (Roxicodone) immediate release tablet 5 [...] documented as of this encounter Care Teams Spark Plug Tester Relationship Specialty Start Date End Date Malcolm Hayward APRN [address] [place] [id number] PCP - General 09/21/23 documented as of this encounter
--- OUTSIDE RECORDS SUMMARY | 2024-12-20 13:30 | XMS_ITS | Encounter Summary ---
Author Organization [employer] ([place], [place], [place], [place]) Address [address] [place] [address] Care Team Providers Care Scooping Machine Tender Name Role Phone Malcolm Hayward APRN Primary Care Provider Reason for Visit * Reason Comments Wound Care Encounter Details Date Type Department Care Team (Late st Contact Info) Description 12/20/2024 1:30 PM EDT Office Visit [facility] 1 [place] [address] Betina Shah APRN [address] [place] [address] Drive [address] [place] [address] Localized tissue (HCC) (Primary Dx); Other specified [...] the original note were not included. Subjective [id number]-LMB-patient is a 49-year-old male who presents to the wound clinic for his initial visit for a wound related to a right groin abscess. [facility] [...] was also to have been referred to [facility] wound care clinic for an appointment. [...] unspecified documented in this encounter Care Teams Scooping Machine Tender Relationship Specialty Start Date End Date Malcolm Hayward APRN [address] [place] [address] PCP - General Nurse Practitioner 12/20/24 documented as of this encounter
--- OUTSIDE RECORDS SUMMARY | 2025-01-10 12:00 | XMS_ITS | Encounter Summary ---
Author Organization Healthcare Address [address] [id number] Care Team Providers Care Body Shop Floorperson Name Role Phone Malcolm Hayward MILK PICKUP DRIVER Primary Care Provider [phone] Reason for Visit * Reason Comments Follow-up Encounter Details Date Type Department Care Team (Late st Contact Info) Description 01/10/2025 12:00 PM EDT Office Visit [facility] [address], 1st [place] [address] Abigail King APRN [address] [place] [address] Dermatitis associated with moisture (Primary [...] any time in the past 12 m [facility], were you homeless or living in a skilled nursing (including now)? No 12/16/2024 Utilities Answer Date [...] Gonzalo Yehuda Russell Dear Malcolm Hayward APRN, [facility] Gonzalo Russell is a 49 y.o. year [...] and Plan 1. Dermatitis associated with moisture -Rsvazoxr-Rdplzm-Whsgilj Alc (A/D EMOLLIENT) cream- Apply 1 Application [...] absolutely necessary because of the distance to [place]. He will call us if any changes. Abigail King APRN [1] Past Medical History: Diagnosis Date Alcohol abuse, in remission Alcohol abuse, in remission Anxiety disorder, unspecified Anxiety Atrial fibrillation ([facility]/HCC) CHF (congestive heart failure) ([facility]) Hyperlipidemia Hypertension Personal history of other diseases [...] hours as needed for pain. Under [place] law, monthly prescriptions (30 days) can be [...] by mouth 3 times a day. HYDROcodone-acetaminophen ([place]) 10-325 MG tablet Take 1 tablet by [...] capsule Take 1 capsule by mouth daily. Toikxdjp-Faingi-Yimpzqo Alc (A/D EMOLLIENT) cream Apply 1 Application [...] Description 03/21/2025 2:40 PM EDT Office Visit [facility] [place] [address] [place] [address] Laureano Jensen MD [address] [place] [address] 03/29/2025 2:20 PM EDT [facility] [address] [place] [address] Pratibha Forde PA [address] [facility] [address] [place] [address] documented as of this encounter Visit Diagnoses [...] documented as of this encounter Care Teams Body Shop Floorperson Relationship Specialty Start Date End Date Malcolm Hayward APRN [address] [place] [address] PCP - General 09/21/23 documented as of this encounter
[2025-02-12] VITALS (13 sets, daily range): BP systolic 140–183; BP diastolic 77–113; PULSE 60–79; RESP 16–18; TEMP 36.6–37.1; O2SAT 94–98; BMI 77.3
--- OUTSIDE RECORDS SUMMARY | 2025-02-12 08:57 | XMS_ITS | Encounter Summary ---
Author Organization Healthcare Address [address] [id number] Care Team Providers Care Specimen Processor Name Role Phone Malcolm Hayward PATTERNMAKER ALL AROUND Primary Care Provider [phone] Reason for Visit * Reason Comments Med Refill Encounter Details Date Type Department Care Team (Late st Contact Info) Description 07/07/2024 Refill [facility] [address] [place] [address] Mayra Torres PA [address] [address] Type 2 diabetes mellitus (CMS/HCC) [...] Description 03/21/2025 2:40 PM EDT Office Visit [facility] [place] [address] [place] [address] Laureano Jensen MD [address] [place] [address] 03/29/2025 2:20 PM EDT Office Visit [facility] Endocr[facility] [address] [place] [address] Pratibha Forde PA [address] [address] documented as of this encounter [...] documented as of this encounter Care Teams Specimen Processor Relationship Specialty Start Date End Date Malcolm Hayward APRN [address] [place] [address] PCP - General 09/21/23 documented as of this encounter
--- OUTSIDE RECORDS SUMMARY | 2025-02-12 08:58 | XMS_ITS | Encounter Summary ---
Author Organization [facility] Address [address] [id number] Care Team Providers Care Brass Reclaimer Name Role Phone Malcolm Hayward SUPERVISOR TILE AND MOTTLE Primary Care Provider [phone] Reason for Visit * Reason Comments Med Refill Encounter Details Date Type Department Care Team (Late st Contact Info) Description 12/02/2024 Refill [place] [facility] Endocrinology [address] [place] [address] Divine Archer, SUPERVISOR TILE AND MOTTLE 2195 [facility] [address] [place] [address] Social History Tobacco Use Types [...] Description 03/21/2025 2:40 PM EDT Office Visit [facility] [place] [address] [place] [address] Laureano Jensen MD [address] [place] [address] 03/29/2025 2:20 PM EDT Office Visit [facility] Endocrinology [address] [place] [address] Pratibha Forde PA [address] [address] documented as of this encounter [...] documented as of this encounter Care Teams Brass Reclaimer Relationship Specialty Start Date End Date Malcolm Hayward APRN [address] [place] [address] PCP - General 09/21/23 documented as of this encounter
--- OUTSIDE RECORDS SUMMARY | 2025-02-12 08:58 | XMS_ITS | Clinical Summary ---
Author Organization [employer] ([place], [place], [place], [place]) Address [address] [place] [address] Care Team Providers Care Inspector Canned Food Reconditioning Name Role Phone Malcolm Hayward APRN Primary Care Provider [phone] Allergies No known active allergies Medications atorvastatin [...] (two) times daily with breakfast and dinner. Active spironolactone (ALDACTONE) 50 MG tablet Take 1 tablet (50 mg total) by mouth daily. Active traZODone (DESYREL) 100 MG tablet Take 1 tablet (100 mg total) by mouth nightly. Active Active Problems No known active problems Encounters Date Type Department Care Team Description 12/20/2024 1:30 PM EDT Office Visit [facility] [address] [place] [address] Betina Shah APRN Localized tissue [...] 1977 Sigmoidoscopy 1977 Diabetic Eye Exam 1987 Depression Screening (12+) 1989 Tobacco Cessation Counseling and Screening (12+) 1989 HIV Screening 1992 Hepatitis C Screening 1995 DTAP/TDAP/TD VACCINES (1 - Tdap) 1996 Lipid Panel 2012 Medicare Initial AWV G0438 02/11/2023 COVID-19 VACCINE (3 - season) 2024, 01/25/2021 Hemoglobin A1C 12/20/2024 Influenza Vaccine (#1) 2025 Pneumococcal Vaccine: 0-49 Y ears (3 [...] Treatment (12/20/2024 3:35 PM EDT) Betina Shah NOVELTY DIPPER NURSING PATHWAYS ORDERABLES Melba l Result from Last 3 Months Insurance MEDICARE PART A B /[facility] Care Teams Inspector Canned Food Reconditioning Relationship Specialty Start Date End Date Malcolm Hayward APRN [address] [place] [address] PCP - General Nurse Practitioner 12/20/24
--- OUTSIDE RECORDS SUMMARY | 2025-02-12 08:58 | XMS_ITS | Encounter Summary ---
Author Organization Healthcare Address [address] [id number] Care Team Providers Care Industrial Relations Specialist Name Role Phone Malcolm Hayward UTILITY GELATIN MAKER Primary Care Provider [phone] Reason for Visit * Reason Comments Med Refill Encounter Details Date Type Department Care Team (Late st Contact Info) Description 12/31/2023 Refill [place] [facility] [address] [place] [address] Earline Loaiza, UTILITY GELATIN MAKER 2195 [facility] [address] [place] [address] Type 2 diabetes mellitus (CMS/HCC) [...] Description 03/21/2025 2:40 PM EDT Office Visit [facility] [place] [address] [place] [address] Laureano Jensen MD [address] [place] [address] 03/29/2025 2:20 PM EDT Office Visit [facility] Endocrinology [address] [place] [address] Pratibha Forde PA 2195 [facility] [address] [place] [address] documented as of this encounter [...] documented as of this encounter Care Teams Industrial Relations Specialist Relationship Specialty Start Date End Date Malcolm Hayward APRN [address] [place] [address] PCP - General 09/21/23 documented as of this encounter
--- OUTSIDE RECORDS SUMMARY | 2025-02-12 08:58 | XMS_ITS | Encounter Summary ---
Author Organization [facility] Address [address] [id number] Care Team Providers Care Fence Post Driver Name Role Phone Malcolm Hayward APRN Primary Care Provider [phone] Encounter Details Date Type Department Care Team (Latest Contact Info) Description 01/10/2025 Travel Social History Tobacco Use Types Packs/Day [...] any time in the past 12 m [facility], were you homeless or living in a snf (including now)? No 12/16/2024 Utilities Answer Date [...] Description 03/21/2025 2:40 PM EDT Office Visit [facility] [place] [address] [facility] [address] [place] [address] Laureano Jensen MD [address] [place] [address] 03/29/2025 2:20 PM EDT Office Visit [facility] Endocrinology [address] [place] [address] Pratibha Forde PA [address] [facility] [address] [place] [address] documented as of this encounter [...] documented as of this encounter Care Teams Fence Post Driver Relationship Specialty Start Date End Date Malcolm Hayward APRN [address] [place] [address] PCP - General 09/21/23 documented as of this encounter
--- OUTSIDE RECORDS SUMMARY | 2025-02-12 08:58 | XMS_ITS | Encounter Summary ---
Author Organization Healthcare Address [address] [id number] Care Team Providers Care Fish Farm Manager Name Role Phone Malcolm Hayward ADALGISA Primary Care Provider [phone] Encounter Details Date Type Department Care Team (Late st Contact Info) Description 01/02/2025 Telephone [facility] [address], [address] [place] [address] Juliana Guzmán RN CH-PAV A 7 T2 [...] the past 12 months has th e [employer], gas, oil, or water company threatened to [...] Telephone Encounter - Juliana Guzmán RN - 01/02/2025 2:41 PM EDT Wound picture reviewed by Melanie King APRN. New order to stop packing with gauze. Shower and floss daily. Scheduled for wound check 01/10/25 at 12:00pm. Patient aware and agreeable. documented in this encounter Plan of Treatment Upcoming Encounters Date Type Department Care Team (Late st Contact Info) Description 03/21/2025 2:40 PM EDT Office Visit [facility] [place] [address] [place] [address] Laureano Jensen MD [address] [place] [address] 03/29/2025 2:20 PM EDT Office Visit [facility] [address] [place] [address] Pratibha Forde PA [address] [place] [address] documented as of this encounter [...] documented as of this encounter Care Teams Fish Farm Manager Relationship Specialty Start Date End Date Malcolm Hayward APRN [address] [place] [address] PCP - General 09/21/23 documented as of this encounter
--- OUTSIDE RECORDS SUMMARY | 2025-02-12 08:58 | XMS_ITS | Encounter Summary ---
Author Organization Healthcare Address [address] [place] [address] Care Team Providers Care Service Administrator Name Role Phone Malcolm Hayward ADALGISA Primary Care Provider [phone] Reason for Visit * Reason Onset Date Comments Med Refill 01/02/2025 Encounter Details Date Type Department Care Team (Late st Contact Info) Description 01/02/2025 Refill [facility] [address], [address] [place] [address] Rachael Berrios APRN [address] [place] [address] Social History Tobacco Use Types [...] any time in the past 12 m [facility], were you homeless or living in a half-way (including now)? No 12/16/2024 Utilities Answer Date [...] Description 03/21/2025 2:40 PM EDT Office Visit [facility] [place] [address] [facility]. [address] [place] [address] Laureano Jensen MD [address] [place] [address] 03/29/2025 2:20 PM EDT Office Visit [facility] Endocrinology [address] [place] [address] Pratibha Forde PA [address] [place] [address] documented as of this encounter [...] documented as of this encounter Care Teams Service Administrator Relationship Specialty Start Date End Date Malcolm Hayward APRN [address] [phone] PCP - General 09/21/23 documented as of this encounter
--- OUTSIDE RECORDS SUMMARY | 2025-02-12 08:58 | XMS_ITS | Encounter Summary ---
Author Organization [employer] ([place], [place], [place], [place]) Address [address] [place] [address] Care Team Providers Care Scrape Gatherer Name Role Phone Malcolm Hayward APRN Primary Care Provider [phone] Encounter Details Date Type Department Care Team [...] on filedocumented in this encounter Care Teams Scrape Gatherer Relationship Specialty Start Date End Date Malcolm Hayward APRN [address] [id number] PCP - General Nurse Practitioner 12/20/24 documented as of this encounter
--- OUTSIDE RECORDS SUMMARY | 2025-02-12 08:58 | XMS_ITS | Clinical Summary ---
Author Organization [facility] Address [address] [place] [address] Care Team Providers Care Marble Cutter Operator Name Role Phone Malcolm Hayward ADALGISA Primary Care Provider Allergies No known active allergies Medications atorvastatin (Lipitor) 40 MG tablet Take 1 tablet by mouth daily. 05/10/20 18 Active LORazepam (Ativan) 1 MG tablet Take 1 tablet by mouth daily as needed. 12/18/19 17 Active omeprazole (PriLOSEC) [address] capsule Take 1 capsule by mouth 2 times a day. 11/04/19 17 Active rivaroxaban (Xarelto) 20 MG tablet Take 1 tablet by mouth daily. 12/16/19 20 Active traZODone (Desyrel) 100 MG tablet Take 1 tablet by mouth nightly. 02/19/20 19 Active venlafaxine XR (Effoxor-XR) 150 MG 24 hr capsule Take 1 capsule by mouth daily. 05/10/20 18 Active bisoprolol (Zebeta) 5 MG tablet Take 1 tablet by mouth 2 times a day. 01/18/20 21 Active spironolactone (Aldactone) 50 MG tablet Take 1 tablet by mouth daily. 09/09/19 21 Active gabapentin (Neurontin) 600 MG tablet Take 1 tablet by mouth 3 times a day. 09/05/19 22 Active cariprazine (Vraylar) 3 MG capsule Take 1 capsule by mouth daily. Active torsemide (Demadex) 20 MG tablet Take 1 tablet by mouth daily. Active dilTIAZem CD (Cardizem CD) 120 MG 24 hr capsule Take 1 capsule by mouth daily. Active metFORMIN (Glucophage) 1000 MG tabletIndications: Type 2 diabetes mellitus TAKE 1 TAB BY MOUTH 2 (TWO) TIMES A DAY WITH MEALS. MUST COMPLETE LABS FOR FURTHER RESULTS. 180 tablet 1 10/18/19 25 Active mupirocin (Bactroban) 2 % ointment Apply 1 Application topically 2 times a day. Active albuterol 108 (90 Base) MCG/ACT inhaler Inhale 2 puffs every 4 to 6 hours as needed for wheezing or shortness of breath. Active oxyCODONE (Roxicodone) 5 MG immediate release tablet Take 1 tablet by mouth every 6 hours as needed for severe pain. 9 tablet 12/18/19 25 Active Additional Information Patient not taking.Reported on 01/10/2025 naloxone (Narcan) 4 mg/0.1 mL nasal spray 1. Give 1 spray in nostril for no/slow breathing or cannot wake after opioid use 2. Call 911 3. Repeat in other nostril if symptoms continue 1 each 12/18/19 25 Active ondansetron ODT (Zofran-ODT) 4 MG disintegrating tablet Dissolve 1 tablet on the tongue every 6 hours as needed for nausea or vomiting. 20 tablet 12/18/19 25 Active acetaminophen (Tylenol) 325 MG tablet Take 2 tablets by mouth every 6 hours as needed for pain. Under [place] law, monthly prescriptions (30 days) can be refilled at 25 days and three-month prescriptions (90 days) at 80 days. Please contact the insurance company with questions if refills are denied. 100 tablet 12/18/19 25 Active polyethylene glycol (Miralax) 17 g packet Take 17 g by mouth daily. 30 packet 12/18/19 25 Active insulin NPH-insulin regular (NovoLIN 70/30 FlexPen) (70-30) 100 UNIT/ML injection pen Inject 90 Units under the skin 3 times a day before meals. 15 mL 3 12/18/19 25 Active HYDROcodone-acetam inophen ([place]) 10-325 MG tablet Take 1 tablet by mouth every 6 hours as needed. Active Ostomy Supplies (stomahesive) powder powderIndications: Dermatitis associated with moisture Apply 1 Application topically as needed (as needed). May apply powder over washed areas, and on top of protectant cream. May be mixed together for application. 28.3 g 3 01/11/20 25 Active Joqjcljy-Tohhap-Ws earyl Alc (A/D EMOLLIENT) creamIndications:D ermatitis associated with moisture Apply 1 Application topically As Directed (See [...] moist from wound drainage. 113 mL 3 01/11/20 25 025 sulfamethoxazole-t rimethoprim (Bactrim DS) 800-160 MG tabletIndications: Dermatitis associated with moisture Take 1 tablet by mouth 2 times a day for 7 days. 14 tablet 01/11/20 25 025 Active Problems Problem Noted Date Diagnosed Date [...] for control Is a patient of our [place] endocrine team Microalbuminuria 04/09/2018 Morbid obesity with [...] Encounters Date Type Department Care Team Description 01/10/2025 12:00 PM EDT Office Visit [facility] General Surgery [address], 1[address] [place] [address] Abigail King, AUTOMOTIVE PARTS MANAGER Dermatitis associated with moisture (Primary Dx); Boil of trunk 01/10/2025 Travel 01/02/2025 Telephone [facility] General Surgery [address], [address] [place] [address] Juliana Guzmán, RN 01/02/2025 Refill [facility] General Surgery [address], [address] [place] [phone] Rachael Berrios APRN 12/21/2024 Telephone [facility] Urology [address], 2nd [place] [address] Ana Huddleston I, LOLA 12/19/2024 Telephone [facility] General Surgery [address], [address] [place] [address] Juliana Guzmán, RN 12/19/2024 Refill [facility] General Surgery [address], [address] [place] [address] Rachael Berrios APRN 12/12/2024 10:28 PM EDT - 12/17/2024 1:17 PM EDT Hospital Encounter [facility] HUYNH 9 [address] [place] [address] Nicole Casas MD Griffen, Margaret M, MD Nickols, Alexis K, MD Abscess of groin, right (Primary Dx); Urge incontinence; Urinary retention; Acute kidney injury ([facility]) Discharge Disposition: Home or Self Care 12/12/2024 Travel 12/09/2024 Orders Only External Location [address] [place] [phone] Provider, External 12/09/2024 Refill [facility] Endocrinology [address] [place] [address] Divine Archer, AUTOMOTIVE PARTS MANAGER Type 2 diabetes mellitus with hyperglycemia, with long-term current use of insulin ([facility]) 12/02/2024 Refill [facility] Endocrinology [address] [place] [address] Divine Archer, AUTOMOTIVE PARTS MANAGER from Last 3 Months Immunizations Immunization Administration [...] any time in the past 12 m [facility], were you homeless or living in a group home (including now)? No 12/16/2024 Utilities Answer Date Recorded In the past 12 months has e [employer], gas, oil, or water [employer] threatened to shut off services in your [...] Mass Index 76.38 01/10/2025 11:58 AM EDT Plan of Treatment Upcoming Encounters Date Type Department Care Team (Late st Contact Info) Description 03/21/2025 2:40 PM EDT Office Visit [facility] [address] [place] [address] Laureano Jensen MD [address] [place] [address] 03/29/2025 2:20 PM EDT Office Visit [facility] Endocrinology [address] [place] [address] Pratibha Forde PA [address] [address] Health Maintenance Due Date Last Done Comments [facility]-HIV Screening 1977 [facility]-Hepatitis C Screening 1977 [facility]-Medicare Annual Wellness (AWV) 1977 [facility]-/Child/Adol SDOH Screenings 1977 Diabetes: Dental Exam 1987 [facility]-DTaP,Tdap,and Td Vaccines (1 - Tdap) 1996 [facility]-Hepatitis B Vaccines (1 of 3 - + 3-dose series) 1996 CT Colonography 2022 Colonoscopy 2022 FIT-DNA 2022 FIT 2022 FOBT 2022 Sigmoidoscopy 2022 [facility]-Colorectal Cancer Screening 2022 [id number] Vaccine ( - season) 2024 02/22/2021, 01/25/2021 [facility]-Diabetes: Hemoglobin A1C 03/13/202508/2024, 01/13/2024, 12/24/2022, Additional history exists [facility]-Influenza Vaccine (#1) 2025 [facility]- SDOH Screenings 06/17/2025 [facility]-Adult SDOH Screenings 06/17/2025 12/16/2024 [facility]-Depression Screening 09/13/2025 09/13/2024, 0310/2024 [facility]-Pneumococcal Vaccine: Pediatrics (0 to 5 Years) and At-Risk Patients (6 to 49 Years) (3 of 3 - PCV20 or PCV21) 2027 04/26/2020, 12/24/2016 [facility]-Zoster Vaccines (1 of 2) 2027 [facility]-Obesity Intervention Completed 025, 12/12/2024, 09/13/2024, Additional history exists HPV Vaccines Aged Out [...] 12:50 AM EDT Abscess of groin, right [place] DRAIN SKIN ABSCESS COMPLIC Routine 12/13/2024 12:50 [...] Comment 12/17/2024 7:58 AM EDT [facility] [place] ID Geo Gonzalez 025 7:58 AM EDT HEALTHCARE LAB Device ID [id number] 12/17/2024 7:58 AM EDT HEALTH[facility]ARE LAB Specimen Type POC Capillary 12/17/2024 7:58 AM EDT HEALTHCARE LAB Blood Capillary blood specimen / Unknown 12/17/2024 7:56 AM EDT 12/17/2024 7:58 AM EDT Rian Robertson MD LAB POINT OF CARE TE ST DOCKED DEVICE UNSOLICITED RESULTS Final Result Performing Organization Address City/[facility] Co de Phone Number [facility] [address] [place] [id number] * Methicillin Resistant Staphylococcus aureus (MRSA) by PCR (12/16/2024 11:17 AM EDT) [facility] Methicillin Resistant Staphylococcus aureus (MRSA) by PCR Not Detected Not Detected 12/16/2024 5:31 PM EDT [facility] Swab Both anterior nares / Unknown Non-blood Collection / Unknown 12/16/2024 11:17 AM EDT 12/16/2024 3:23 PM EDT Narrative [facility] - 12/16/2024 5:31 PM EDT [...] LAB MICROBIOLOGY - GENERAL ORDERABLES Final Result Performing Organization Address City/[facility]/ZIP Co de Phone Number [facility] [address] [place] [address] * (ABNORMAL) CBC W/O Differential (12/16/2024 1:43 AM EDT) Only the most recent of4 resultswithin the time period is included. WBC Count 4.08 3.70 - 10.30 10*3/uL LAB HEMATOLOGY METHOD 12/16/2024 2:10 AM EDT [facility] RBC Count 3.89(L) 4.60 - 6.10 10*6/uL LAB HEMATOLOGY METHOD 12/16/2024 2:10 AM EDT [facility] HGB 9.9(L) 13.7 - 17.5 g/dL LAB HEMATOLOGY METHOD 12/16/2024 2:10 AM EDT [facility] HCT 32.5(L) 40.0 - 51.0 % LAB HEMATOLOGY METHOD 12/16/2024 2:10 AM EDT [facility] Platelet Count 207 155 - 369 10*3/uL LAB HEMATOLOGY METHOD 12/16/2024 2:10 AM EDT [facility] MCV 84 79 - 98 fL LAB HEMATOLOGY METHOD 12/16/2024 2:10 AM EDT [facility] MCH 25.4(L) 26.0 - 32.0 pg LAB HEMATOLOGY METHOD 12/16/2024 2:10 AM EDT [facility] MCHC 30.5(L) 30.7 - 35.5 g/dL LAB HEMATOLOGY METHOD 12/16/2024 2:10 AM EDT [facility] RDW 17.0(H) 11.5 - 14.5 % LAB HEMATOLOGY METHOD 12/16/2024 2:10 AM EDT [facility] MPV 9.4 8.8 - 12.5 fL LAB HEMATOLOGY METHOD 12/16/2024 2:10 AM EDT [facility] nRBC 0.0 <=0.0 per 100 WBCs LAB HEMATOLOGY METHOD 12/16/2024 2:10 AM EDT [facility] Blood Venous blood specimen / Unknown Venipuncture / Unknown 12/16/2024 1:43 AM EDT 12/16/2024 1:59 AM EDT us Leidy Hernandez MD LAB BLOOD ORDERABLES Final Result Performing Organization Address City/[facility]/ZIP Co de Phone Number [facility] [address] [place] [address] * (ABNORMAL) Magnesium (12/16/2024 1:43 AM EDT) Only the most recent of3 resultswithin the time period is included. Magnesium, Plasma 1.7(L) 1.9 - 2.4 mg/dL 12/16/2024 2:30 AM EDT [facility] Blood Venous blood specimen / Unknown Venipuncture / Unknown 12/16/2024 1:43 AM EDT 12/16/2024 1:58 AM EDT Leidy Hernandez MD LAB BLOOD ORDERABLES Final Result Performing Organization Address [facility] Co de Phone Number [facility] [address] [place] [address] * (ABNORMAL) Renal function panel (12/16/2024 1:43 AM EDT) Only the most recent of2 resultswithin the time period is included. Glucose, Plasma 301(H) 74 - 99 mg/dL 12/16/2024 2:30 AM EDT [facility] BUN, Plasma 7 7 - 21 mg/dL 12/16/2024 2:30 AM EDT [facility] Creatinine, Plasma 0.62(L) 0.70 - 1.20 mg/dL 12/16/2024 2:30 AM EDT [facility] BUN/Creatinine Ratio 11 12/16/2024 2:30 AM EDT [facility] Sodium, Plasma 135(L) 136 - 145 mmol/L 12/16/2024 2:30 AM EDT [facility] Potassium, Plasma 3.7 3.6 - 4.9 mmol/L 12/16/2024 2:30 AM EDT [facility] Chloride, Plasma 97 97 - 107 mmol/L 12/16/2024 2:30 AM EDT [facility] CO2, Plasma 29 22 - 29 mmol/L 12/16/2024 2:30 AM EDT [facility] Anion Gap 9 6 - 16 mmol/L 12/16/2024 2:30 AM EDT [facility] Total Calcium, Plasma 8.9 8.9 - 10.2 mg/dL 12/16/2024 2:30 AM EDT [facility] Phosphorus, Plasma 2.7 2.5 - 4.5 mg/dL 12/16/2024 2:30 AM EDT [facility] Albumin, Plasma 2.7(L) 3.5 - 5.2 g/dL 12/16/2024 2:30 AM EDT [facility] eGFRcr 118.6 mL/min/1.7 3m*2 12/16/2024 2:30 AM EDT [facility] Comment:Reported eGFRcr in m L/min/1.73m2 is based the CKD-EPI 2020 equation that does not use a race coefficient. Blood Venous blood specimen / Unknown Venipuncture / Unknown 12/16/2024 1:43 AM EDT 12/16/2024 1:58 AM EDT Leidy Hernandez MD LAB BLOOD ORDERABLES Final Result Performing Organization Address City/[facility]/ZIP Co de Phone Number [facility] [address] [place] [address] * Phosphorus (12/15/2024 4:37 AM EDT) Only the most recent of2 resultswithin the time period is included. Phosphorus, Plasma 3.1 2.5 - 4.5 mg/dL 12/15/2024 7:02 AM EDT [facility] Blood Venous blood specimen / Unknown Venipuncture / Unknown 12/15/2024 4:37 AM EDT 12/15/2024 4:47 AM EDT Leidy Hernandez MD LAB BLOOD ORDERABLES Final Result [facility] [address] [place] [address] * (ABNORMAL) Basic Metabolic Panel, Plasma (12/15/2024 4:37 AM EDT) Only the most recent of2 resultswithin the time period is included. Glucose, Plasma 199(H) 74 - 99 mg/dL 12/15/2024 7:02 AM EDT [facility] BUN, Plasma 6(L) 7 - 21 mg/dL 12/15/2024 7:02 AM EDT [facility] Creatinine, Plasma 0.59(L) 0.70 - 1.20 mg/dL 12/15/2024 7:02 AM EDT [facility] BUN/Creatinine Ratio 10 12/15/2024 7:02 AM EDT [facility] Sodium, Plasma 137 136 - 145 mmol/L 12/15/2024 7:02 AM EDT [facility] Potassium, Plasma 3.5(L) 3.6 - 4.9 mmol/L 12/15/2024 7:02 AM EDT [facility] Chloride, Plasma 96(L) 97 - 107 mmol/L 12/15/2024 7:02 AM EDT [facility] CO2, Plasma 29 22 - 29 mmol/L 12/15/2024 7:02 AM EDT [facility] Anion Gap 12 6 - 16 mmol/L 12/15/2024 7:02 AM EDT [facility] Total Calcium, Plasma 8.6(L) 8.9 - 10.2 mg/dL 12/15/2024 7:02 AM EDT [facility] eGFRcr 120.4 mL/min/1.7 3m*2 12/15/2024 7:02 AM EDT [facility] Comment:Reported eGFRcr in m L/min/1.73m2 is based the CKD-EPI 2020 equation that does not use a race coefficient. Blood Venous blood specimen / Unknown Venipuncture / Unknown 12/15/2024 4:37 AM EDT 12/15/2024 4:47 AM EDT us Leidy Hernandez MD LAB BLOOD ORDERABLES Final Result [facility] [address] [place] [address] * [place] DRAIN SKIN ABSCESS COMPLIC, HC DRAIN SKIN [...] infection Alternatives discussed: No treatment and observation Duncan protocol: Procedure explained and questions answered to [...] 10.9(H) <5.7 % 12/13/2024 11:55 AM EDT [facility] Blood Venous blood specimen / Unknown Venipuncture / Unknown 12/12/2024 11:46 PM EDT 12/13/2024 12:06 AM EDT Narrative [facility] - 12/13/2024 11:55 AM EDT HA1C Interpretive Data: Diagnosis of Diabetes: Diabetic > or = 6.5% Pre-diabetic 5.7 to 6.4% Non-diabetic < or = 5.6% Glycemic Targets for Type I and Type II Diabetics: Non- Adults <7.0% Adults <6.0% Children and Adolescents <7.5% Source: [place] [employer]. Standards of medical care in diabetes,2017. Diabetes Care.2017:40 (suppl 1):S1-S135. us Nicole Casas MD LAB BLOOD ORDERABLES Melba don Result [facility] [address] [place] [address] * US OUTSIDE IMAGES (12/09/2024 8:20 AM EDT) Anatomical Region Laterality Modality Ultrasound 12/09/2024 8:20 AM EDT us External Provider IMG US PROCEDURES Final Result from Last [address] [place] [address] [place] [address] [place] [address] Advance Directives * Full Code (Latest Code Status on File) Date Activated Date Inactivated Comments 12/12/2024 11:07 PM 12/17/2024 3:22 PM Question Answer Comments I have reviewed the capacity from the link above and, if needed, have updated to appropriate status: Yes Care Teams Marble Cutter Operator Relationship Specialty Start Date End Date Malcolm Hayward APRN [address] [place] [address] PCP - General 09/21/23
--- OUTSIDE RECORDS SUMMARY | 2025-02-12 08:58 | XMS_ITS | Referral Summary ---
Author Organization [employer] ([place], [place], [place], [place]) Address [address] [place] [address] Care Team Providers Care Apartment Hotel Manager Name Role Phone Malcolm Hayward APRN Primary Care Provider [phone] Encounters Date Type Department Care Team Description 12/20/2024 Travel 12/20/2024 1:30 PM EDT Office Visit [facility] [address] [place] [address] Betina Shah APRN Localized tissue [...] Active Active Problems No known active problems Social [...] Wound Treatment (12/20/2024 3:35 PM EDT) Betina Pablo ADALGISA NURSING PATHWAYS ORDERABLES Melba don Result from Last 3 Months Insurance MEDICARE PART A B /[facility] Care Teams Apartment Hotel Manager Relationship Specialty Start Date End Date Malcolm Hayward APRN [address] [id number] PCP - General Nurse Practitioner 12/20/24
--- OUTSIDE RECORDS SUMMARY | 2025-02-12 08:59 | XMS_ITS | Clinical Summary ---
[facility] Address [address] [place] [address] Care Team Providers Care Supervisor Name Role Phone Provider, No Known Primary Care Provider Unavail able Social History Tobacco Use Types Packs/Day Years Used Date Smoking Tobacco: Never Assessed Abuse Screen Answer Date Recorded Unsafe at Home or Work/School Not on file Feels Threatened by Someone? Not on file Does Anyone Keep You from Co ntacting Others or Doint Things Outside the Home? Not on file 04/24/2023 Physical Sign of Abuse Present Not on file 1 Housing Stability Answer Date Recorded Current Living Arrangements Not on file 04/12 Potentially Unsafe Housing Conditions Not on jordi e 04/24/2023 Family and Community Support Answer Nick e Recorded Help with Day-to-Day Activities Not on file 04/24/2023 Lonely or Isolated Not on file 04/24/2023 Employment Answer Date Recorded Do you want help finding or keeping work or a ting b? Not on file 04/24/2023 Disabilities Answer Date Recorded Concentrating, Remembering, or Making Decisions Difficulty Not on file 04/24/2023 Doing Errands Independently Difficulty Not on fi le 04/24/2023 Education Answer Date Recorded Help with school or training? Not on file Preferred Language Not on file 04/24/2023 Sex and Gender Information Value Date Recorded Sex Assigned at Not on file Legal Sex Male 12:27 PM EDT Gender Identity Not on file Sexual Orientation Not on file Plan of Treatment Health Maintenance Due Date Last Done Comments ANNUAL PHYSICAL 1975 HEPATITIS C SCREENING 1977 TDAP/TD VACCINES (1 - Tdap) 1996 COLOGUARD 2022 COLON CANCER SCREENING 5 YEA R SIGMOIDOSCOPY 2022 COLONOSCOPY 20[address] CAN[address]ER SCREENING 20[address] CT COLONOGRAPHY 2022 FECAL OCCULT BLOOD TEST 2022 FIT Testing (1 year) 2022 COVID-19 Vaccine ( - 2023-2 5 season) 2024 INFLUENZA VACCINE 04/12/2025 Pneumococcal Vaccine 0-49 Aged Out No longer eligible based on patient's age to complete this topic Insurance Care Teams Supervisor Relationship Specialty Start Date End Date Provider, No Known [facility] [place] [address] PCP - General 02/11/21
--- OUTSIDE RECORDS SUMMARY | 2025-02-12 08:59 | XMS_ITS | Encounter Summary ---
Author Organization Healthcare Address [address] [id number] Care Team Providers Care Certified Medical Records Coder Name Role Phone Malcolm Hayward ADALGISA Primary Care Provider [phone] Encounter Details Date Type Department Care Team (Late st Contact Info) Description 12/21/2024 Telephone [facility] U[facility] [address], [address] [place] [phone] Ana Huddleston I, RN [facility] Social History Tobacco Use Types [...] Description 03/21/2025 2:40 PM EDT Office Visit [facility] [address] [place] [address] Laureano Jensen MD [address] [place] [address] 03/29/2025 2:20 PM EDT Office Visit [facility] Endocrinology [address] [place] [address] Pratibha Forde PA [address] [place] [address] documented as of this encounter [...] documented as of this encounter Care Teams Certified Medical Records Coder Relationship Specialty Start Date End Date Malcolm Hayward APRN [address] [place] [address] PCP - General 09/21/23 documented as of this encounter
--- OUTSIDE RECORDS SUMMARY | 2025-02-12 08:59 | XMS_ITS | Encounter Summary ---
Author Organization Healthcare Address [address] [id number] Care Team Providers Care Oracle Manufacturing Consultant Name Role Phone Malcolm Hayward ADALGISA Primary Care Provider [phone] Encounter Details Date Type Department Care Team (Late st Contact Info) Description 12/19/2024 Telephone [facility] [address], [address] [place] [address] Juliana Guzmán RN [facility]-PAV A 7 T2 [...] EDT Spoke with patient's . [facility] can see patient as early as tomorrow to discuss concerns. aware and will let patient know. 12/27 appt at cancelled now that [facility] will assume all care ofwound documented in this encounter Plan of Treatment Upcoming Encounters Date Type Department Care Team (Late st Contact Info) Description 03/21/2025 2:40 PM EDT Office Visit [facility] [place] [facility] [address] [place] [address] Laureano Jensen MD [address] [place] [address] 03/29/2025 2:20 PM EDT Office Visit [facility] [address] [place] [address] Pratibha Forde PA [address] [facility] [address] [place] [address] documented as of this encounter [...] documented as of this encounter Care Teams Oracle Manufacturing Consultant Relationship Specialty Start Date End Date Malcolm Hayward APRN [address] [place] [address] PCP - General 09/21/23 documented as of this encounter
--- OUTSIDE RECORDS SUMMARY | 2025-02-12 08:59 | XMS_ITS | Encounter Summary ---
Author Organization Healthcare Address [address] [place] [address] Care Team Providers Care Notching Machine Operator Name Role Phone Malcolm Hayward ADALGISA Primary Care Provider [phone] Reason for Visit * Reason Onset Date Comments Med Refill 12/19/2024 Encounter Details Date Type Department Care Team (Late st Contact Info) Description 12/19/2024 [facility]ill [facility] [address], [address] [place] [address] Rachael Berrios, ADALGISA [address] [place] [address] Social History Tobacco Use Types [...] any time in the past 12 m [facility], were you homeless or living [...] EDT Office Visit [facility] [address] [place] [address] Laureano Jensen MD [address] [place] [address] 03/29/2025 2:20 PM EDT Office Visit [facility]ocrinology [address] [place] [address] Pratibha Forde PA [address] [place] [address] documented as of this encounter [...] documented as of this encounter Care Teams Notching Machine Operator Relationship Specialty Start Date End Date Malcolm Hayward APRN [address] [phone] PCP - General 09/21/23 documented as of this encounter
[2025-02-12 09:01] LABS: Hematocrit 38.8 % (42.0-52.0); Hemoglobin 11.4 g/dL (14.1-18.0); Immature Granulocytes % 0.1 %; Mean Corpuscular HGB Conc 29.4 g/dL (31.8-35.4); Mean Corpuscular Hemoglobin 23.2 pg (27.0-31.2); Mean Corpuscular Volume 79.0 fl (80-94); Nucleated Red Blood Cells % 0 %; Platelet Count 211 K/mm3 (142-424); Red Blood Count 4.91 M/mm3 (4.60-6.20); Red Cell Distribution Width-SD 47.7 fL; White Blood Count 7.6 K/mm3 (4.8-10.8)
[2025-02-12 09:10] LABS: Albumin Level 3.6 g/dl (3.5-5.0); Chloride 92 mmol/L (98-107); Potassium 3.6 mmoL/L (3.5-5.1); Sodium 134 mmol/L (136-145)
[2025-02-12 09:13] LABS: Alanine Aminotransferase 22 U/L (12-78); Albumin/Globulin Ratio 0.8 (1.1-1.8); Alkaline Phosphatase 72 U/L (38-126); Anion Gap 10.6 mEq/L (5-15); Aspartate Amino Transferase 25 U/L (17-59); Bilirubin,Total 0.7 mg/dl (0.2-1.3); Blood Urea Nitrogen 13 mg/dl (9-20); Carbon Dioxide 35 mmol/L (22.0-30.0); Creatinine Clearance Estimated 167 mL/min (50-200); Creatinine,Serum 0.60 mg/dl (0.66-1.25); Estimated Glomerular Filt Rate 144 ml/min (>60); GFR (African American) 175 ML/MIN (>60); Globulin 4.6 g/dL (1.3-3.2); Total Protein,Serum 8.2 g/dl (6.3-8.2)
[2025-02-12 09:14] LABS: Calcium 9.7 mg/dl (8.4-10.2); Glucose 197 mg/dl (74-100)
--- NOTE | 2025-02-12 09:17 | HMH.EDGENADL ---
Discharge Plan Disposition Patient Disposition: Home, Self-Care Condition: Good Prescriptions Prescriptions: New cefdinir 300 mg capsule 300 mg PO BID 10 Days Qty: 20 0RF tamsulosin [Flomax] 0.4 mg capsule 0.4 mg PO DAILY 7 Days Qty: 7 0RF No Action (DME) insulin syringe-needle U-100 [BD Insulin Syringe Ultra-Fine] 1 mL 30 gauge x 1/2 syringe See Rx Instructions .ROUTE .MEDSUPPLY Qty: 10 Rx Instructions: As directed (DME) pen needle, diabetic [Comfort EZ Pen [place]] 32 gauge x 5/32 needle See Rx Instructions .Route Qty: 100 0RF Rx Instructions: As directed diltiazem HCl 120 mg capsule,extended release 24hr 120 mg PO DAILY Qty: 90 3RF mupirocin 2 % ointment 1 applic topical BID 14 Days Qty: 22 1RF albuterol sulfate 90 mcg/actuation HFA aerosol inhaler 2 puff inhalation Q4-6H PRN (Reason: shortness of breath or wheezing) Qty: 8.5 3RF torsemide 20 mg tablet 20 mg PO Patient Comments: TAKE 1 TABLET BY MOUTH EVERY DAY NEEDED FOR EDEMA Novolin 70/30 U-100 Insulin 100 unit/mL (70-30) suspension 90 unit SQ gabapentin 600 mg tablet 600 mg PO TID Qty: 90 2RF lorazepam 1 mg tablet 1 mg PO DAILYP PRN (Reason: anxiety) Qty: 15 2RF Rx Instructions: +++Monthly+++ Vraylar 3 mg capsule 3 mg PO DAILY Qty: 90 1RF atorvastatin 40 mg tablet 40 mg PO HS Qty: 90 1RF omeprazole 40 mg capsule,delayed release(DR/EC) 40 mg PO BID Qty: 90 0RF nitrofurantoin monohyd/m-cryst [Macrobid] 100 mg capsule 100 mg PO Q12H 7 Days Qty: 14 0RF Rx Instructions: must administer with a meal/food hydrocodone-acetaminophen 10-325 mg tablet 1 tab PO TIDP PRN (Reason: pain) Qty: 90 0RF metformin 1,000 mg tablet 1,000 mg PO BID Xarelto 20 mg tablet 20 mg PO QPMWITHMEAL venlafaxine 150 mg capsule,extended release 24hr 150 mg PO DAILY bisoprolol fumarate 5 mg tablet 5 mg PO BID Patient Comments: TAKE 1 TABLET BY MOUTH TWICE A DAY FOR BLOOD PRESSURE trazodone 100 mg tablet 100 mg PO HS Patient Comments: TAKE 1 TABLET AT BEDTIME spironolactone 50 mg tablet 50 mg PO DAILY Patient Comments: TAKE 1 TABLET BY MOUTH EVERY DAY Ozempic 0.25 mg or 0.5 mg (2 mg/3 mL) pen injector 0.25 mg SQ WEEKLY Qty: 3 1RF Rx Instructions: for 4 weeks acetaminophen 325 mg Tablet 650 mg PO Q4HP PRN (Reason: Fever Or Mild Pain (1-3)) Qty: 0 0RF calcium carbonate [Tums] 200 mg calcium (500 mg) Tablet,Chewable 500 mg PO QIDP PRN (Reason: Heartburn) Qty: 0 0RF Referrals Follow up/Referrals: Malcolm Hayward APRN [Primary Care Provider, Family Practice] - See instructions Activity Restrictions/Add. Instructions Additional Instructions/Restrictions: Take the antibiotics as prescribed for 7 days. I have also sent you with Flomax which you can take daily for 7 days to help with urination. Call your primary care doctor tomorrow. Return to the emergency department if you develop any back pain fevers or you are unable to urinate at all. Clinical Impressions Clinical Impression: Urinary tract infection Instructions Patient Instructions: DI for Urinary Tract Infection (UTI), DI for Urinary Tract Infection in Children Print Language Print Language: [place] Discharge ED Provider: Mayra Gill Adult HPI General Chief complaint: Urogenital-Male Stated complaint: Poss Kidney Stone/Back pain, painful urination Time Seen by Provider: 02/12/25 08:46 Mode of Arrival: Ambulatory Source of Information: Patient Description of Symptoms (Recalled from ER Triage Doc. by RN): patient states for the past few days he has been having lower back pain that is intermittent and dull, he has burning with uriantion, and has the urgency to urinate more often but only small amounts coming out. was seen at [facility] yesterday and they told him he might have a kidney stone denies history of kidney stone History of Present Illness HPI narrative: Patient is a 49-year-old male with a past medical history of obesity, history of gastric sleeve in 2021 done at [facility] who presented to the emergency department with urinary symptoms as well as back pain. Patient states that since yesterday he was having difficulties urinating patient states that he felt like he was having difficulties urinating and when he tried to pee it would just trickle out. Patient states that today patient has continued to have a low flow which is decreased from his normal. Patient reports some penile pain with pain but denies any penile discharge swelling or erythema. Patient reports that he has chronic back pain but his back pain today feels different than his usual it is bilateral worse with lying but not worse with movement. Patient states that the pain does not radiate into his lower abdomen. Patient denies any testicular pain. Patient denies any fevers vomiting chills nausea. Related Data Home Medications ?Medication ?Instructions ?Recorded ?Confirmed insulin syringe-needle U-100 1 mL #10 ea 02/18/24 02/11/25 30 gauge x 1/2 (BD Insulin Syringe Ultra-Fine) metformin 1,000 mg tablet 1,000 mg PO BID 02/18/24 02/11/25 rivaroxaban 20 mg tablet (Xarelto) 20 mg PO QPMWITHMEAL 02/18/24 02/11/25 Held on 12/12/24. Instructions: pending surgery, resume after surgery bisoprolol fumarate 5 mg tablet 5 mg PO BID 12/08/24 02/11/25 spironolactone 50 mg tablet 50 mg PO DAILY 12/08/24 02/11/25 trazodone 100 mg tablet 100 mg PO HS 12/08/24 02/11/25 venlafaxine 150 mg 150 mg PO DAILY 12/08/24 02/11/25 capsule,extended release 24 hr insulin human U-100 NPH-regulr 90 unit SQ 12/26/24 02/11/25 70-30 mix 100 unit/mL subcutaneous susp (Novolin 70/30 U-100 Insulin) torsemide 20 mg tablet 20 mg PO 12/26/24 02/11/25 Previous Rx's ?Medication ?Instructions ?Recorded pen needle, diabetic 32 gauge x #100 ea 09/16/23 (Comfort EZ Pen Wolbach) diltiazem HCl 120 mg 120 mg PO DAILY #90 caps 06/23/24 capsule,extended release 24 hr cariprazine 3 mg capsule (Vraylar) 3 mg PO DAILY #90 caps 08/09/24 atorvastatin 40 mg tablet 40 mg PO HS #90 tabs 08/22/24 albuterol sulfate 90 mcg/actuation 2 puff inhalation Q4-6H PRN 09/27/24 aerosol inhaler shortness of breath or wheezing #8.5 grams mupirocin 2 % topical ointment 1 applic topical BID infection 14 11/30/24 days #22 grams semaglutide 0.25 mg or 0.5 mg (2 0.25 mg (0.368 mL) SQ WEEKLY #3 mL 12/09/24 mg/3 mL) subcutaneous pen injector (Ozempic) acetaminophen 325 mg tablet 650 mg (2 x 325 mg) PO Q4HP PRN 12/10/24 Fever Or Mild Pain (1-3) #0 tabs calcium carbonate (Tums) 500 mg (2.5 x 200 mg calcium (500 12/12/24 mg)) PO QIDP PRN Heartburn #0 tabs omeprazole 40 mg capsule,delayed 40 mg PO BID #90 caps 12/22/24 release gabapentin 600 mg tablet 600 mg PO TID #90 tabs 12/26/24 lorazepam 1 mg tablet 1 mg PO DAILYP PRN anxiety #15 tabs 12/26/24 nitrofurantoin 100 mg PO Q12H 7 days #14 caps 12/31/24 monohydrate/macrocrystals 100 mg capsule (Macrobid) hydrocodone 10 mg-acetaminophen 1 tab PO TIDP PRN pain #90 tabs 01/19/25 325 mg tablet cefdinir 300 mg capsule 300 mg PO BID 10 days #20 caps 02/12/25 tamsulosin 0.4 mg capsule (Flomax) 0.4 mg PO DAILY 7 days #7 caps 02/12/25 Allergies Allergy/AdvReac Type Severity Reaction Status Date / Time vancomycin AdvReac Severe Redness of Verified 02/11/25 19:29 Skin clindamycin AdvReac Mild Nausea Verified 02/11/25 19:29 doxycycline AdvReac Mild Upset Verified 02/11/25 19:29 stomach, heartbur PFSH PFSH Disclaimer: The information contained in this section may have been updated after the patient was seen, as this information can be updated by other users. 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 Tachycardia Bilateral knee pain DDD (degenerative disc disease), lumbar Depression Morbid obesity with body mass index of 70 and over in adult CHF (congestive heart failure) COPD (chronic obstructive pulmonary disease) Diabetes Dyspnea BMI 60.0-69.9, adult Obesity Anxiety disorder Hypertension Diabetes type 2, uncontrolled Surgical History S/P gastric sleeve procedure History of gastric bypass Family History Father Cancer Other No significant family history Social History Smoking Status: Current every day smoker tobacco type: smokeless tobacco alcohol intake: former year quit: 2021 counseling given: Yes counseling provided: provider counseling substance use type: denies use current occupational status: unemployed and disabled Travel in the last 8 weeks?: None household members: spouse and children housing: house marital status: number of children: 1 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 current occupational exposures/hazards: No pets and animals: Yes pets and animals: cat(s) diet: other caffeine: Yes physical activity: none Other Medical History Have you received the Flu Vaccine for this season: No Have you received the Pneumonia Vaccine: No ROS Obtained: Yes All systems reviewed & no additional complaints except as documented and Yes Systems reviewed as appropriate & no additional complaints except as documented Physical Exam General General appearance: alert and in no apparent distress Head Head exam: atraumatic, normocephalic and normal inspection Eye Eye exam: Present normal appearance, PERRL and EOMI; Absent scleral icterus ENT ENT exam: Present normal exam and normal external ear exam Neck Neck exam: Present normal inspection and full ROM Chest Chest inspection: Present normal inspection and symmetric chest wall rise Respiratory Respiratory exam: Present normal lung sounds bilaterally; Absent respiratory distress or wheezes Cardiovascular Cardiovascular exam: Present regular rate, normal rhythm and normal heart sounds Abdominal Exam Abdominal exam: Present soft, distention and other (R CVA tenderness); Absent tenderness, guarding or rebound Extremities Exam Extremities exam: Present normal inspection and full ROM Back Exam Back exam: Present normal inspection, full ROM and other (No midline spinal tenderness) Neurological Exam Neurological exam: Present alert and oriented X3 Psychiatric Psychiatric exam: Present normal affect and normal mood Skin Skin exam: Present warm and dry Medical Decision Making Medical Records Screening: Per USPSTF and CDC recommendations, given the prevalence of disease in our region, it is our hospital?s policy to screen for HIV and viral Hepatitis for all patients aged 18 and over and those with ongoing risk factors. Sy Inquiry Pt receiving controlled substance: No Vital Signs: 02/12/25 08:43 02/12/25 08:46 02/12/25 09:22 Temperature 98 F Temperature Source Oral Pulse Rate 69 69 Pulse Rate [Right Radial] 73 Respiratory Rate 18 Blood Pressure 183/87 H 163/96 H Blood Pressure [Right Arm] 183/87 H Blood Pressure Mean [Right Arm] 119 Blood Pressure Source [Right Arm] Automatic Cuff Blood Pressure Position [Right Arm] Sitting 02 Sat by Pulse Oximetry 97 97 98 Oxygen Delivery Method Room Air Room Air Room Air 02/12/25 10:00 02/12/25 11:04 02/12/25 11:30 Temperature Temperature Source Pulse Rate 62 70 60 Pulse Rate [Right Radial] Respiratory Rate Blood Pressure 140/103 H 140/89 166/113 H Blood Pressure [Right Arm] Blood Pressure Mean [Right Arm] Blood Pressure Source [Right Arm] Blood Pressure Position [Right Arm] 02 Sat by Pulse Oximetry 97 96 96 Oxygen Delivery Method Room Air Room Air 02/12/25 11:34 02/12/25 12:00 02/12/25 12:30 Temperature Temperature Source Pulse Rate 64 65 70 Pulse Rate [Right Radial] Respiratory Rate Blood Pressure 166/113 H 163/98 H Blood Pressure [Right Arm] Blood Pressure Mean [Right Arm] Blood Pressure Source [Right Arm] Blood Pressure Position [Right Arm] 02 Sat by Pulse Oximetry 96 98 94 L Oxygen Delivery Method 02/12/25 13:19 02/12/25 13:40 02/12/25 13:41 Temperature Temperature Source Pulse Rate 79 64 71 Pulse Rate [Right Radial] Respiratory Rate 16 16 Blood Pressure 163/98 H 141/77 H 141/77 H Blood Pressure [Right Arm] Blood Pressure Mean [Right Arm] Blood Pressure Source [Right Arm] Blood Pressure Position [Right Arm] 02 Sat by Pulse Oximetry 95 96 96 Oxygen Delivery Method 02/12/25 14:06 Temperature 98.7 F Temperature Source Pulse Rate 71 Pulse Rate [Right Radial] Respiratory Rate 16 Blood Pressure 141/77 H Blood Pressure [Right Arm] Blood Pressure Mean [Right Arm] Blood Pressure Source [Right Arm] Blood Pressure Position [Right Arm] 02 Sat by Pulse Oximetry Oxygen Delivery Method Lab Data Lab results reviewed: Yes I reviewed the patient's lab results. Lab Results 02/12/25 08:45: WBC 7.6, RBC 4.91, Hgb 11.4 L, Hct 38.8 L, MCV 79.0 L, MCH 23.2 L, MCHC 29.4 L, RDW 16.7, Plt Count 211, MPV 9.2, Neut % (Auto) 74.9, Lymph % (Auto) 15.8, [place] % (Auto) 7.5, Eos % (Auto) 1.3, Baso % (Auto) 0.4, Neut # (Auto) 5.7, Lymph # (Auto) 1.2, [place] # (Auto) 0.6, Eos # (Auto) 0.1, Baso # (Auto) 0.0, Sodium 134 L, Potassium 3.6, Chloride 92 L, Carbon Dioxide 35 H, Anion Gap 10.6, BUN 13, Creatinine 0.60 L, Estimated Creat Clear 167, Estimated GFR 144, Est GFR ( Amer) 175, Glucose 197 H, Calcium 9.7, Total Bilirubin 0.7, AST 25, ALT 22, Alkaline Phosphatase 72, Total Protein 8.2, Albumin 3.6, Globulin 4.6 H, Albumin/Globulin Ratio 0.8 L 02/12/25 09:32: Urine Color Yellow, Urine Appearance Clear, Urine pH 7.0, Ur Specific [place] 1.015, Urine Protein Trace, Urine Glucose (UA) Negative, Urine Ketones Negative, Urine Blood Negative, Urine Nitrate Negative, Urine Bilirubin Negative, Urine Urobilinogen 1.0, Ur Leukocyte Esterase Negative, Urine RBC Occasional, Urine WBC Occasional, Ur Squamous Epith Cells 5-10, Urine Bacteria Trace 02/12/25 08:45 02/12/25 08:45 Orders (Tests/Meds): ED MEDICATIONS Discontinued Medications Generic Name Dose Route Start Last Admin Trade Name Freq PRN Reason Stop Dose Admin Ceftriaxone Sodium 2 gm/ 100 mls @ 200 mls/hr 02/12/25 13:48 02/12/25 13:53 Sodium Chloride IV 02/12/25 14:17 200 mls/hr ONCE ONE Administration Iopamidol 90 ml 02/12/25 12:45 02/12/25 12:48 Iopamidol-370 (76%);100ml Bottle IV 02/12/25 12:46 90 ml ONCE ONE Administration Morphine Sulfate 4 mg 02/12/25 09:16 02/12/25 09:45 Morphine 4mg/Ml Syringe IV 02/12/25 09:17 4 mg ONCE ONE Administration Ondansetron HCl 4 mg 02/12/25 09:16 02/12/25 09:45 Ondansetron 4mg/2ml Vial IV 02/12/25 09:17 4 mg ONCE ONE Administration Sodium Chloride 10 ml 02/12/25 08:52 Sodium Chloride 0.9% 10ml Flush Syringe IV 03/14/25 08:51 NEEDED PRN Maintain IV Site Sodium Chloride 10 ml 02/12/25 12:45 02/12/25 12:48 Sodium Chloride 0.9% 10ml Syr (Rad Only) IV 02/12/25 12:46 10 ml ONCE ONE Administration ORDERS Category Date Time Status CT abdomen pelvis w con Stat Cat Scan 02/12/25 12:30 Completed POCUS Point of Care (ER Only) Stat Exams 02/12/25 09:02 Taken Complete Blood Count Auto Diff Stat Lab 02/12/25 08:45 Completed Comprehensive Metabolic Panel Stat Lab 02/12/25 08:45 Completed UA [Urinalysis and Microscopic] Stat Lab 02/12/25 09:32 Completed Urine Culture Stat Micro 02/12/25 09:32 Results Medical Decision Narrative: Patient is a 49-year-old male with a past medical history of gastric sleeve who presented to the emergency department with abdominal pain back pain as well as urinary symptoms. On arrival, patient was hemodynamically stable with unremarkable vital signs. Differential includes but not limited to urinary tract infection, nephrolithiasis, obstructed stone, appendicitis, diverticulitis, constipation, amongst others. Patient's labs were reviewed and interpreted by myself, CBC showed no leukocytosis, hemoglobin was stable. CMP was unremarkable. UA had trace bacteria, occasional white blood cells negative leuk esterase and negative nitrites. Patient CT scan was reviewed and interpreted by myself and showed no acute pathology. At this time, given patient's equivocal UA with urinary symptoms I felt that it was appropriate to treat. Patient was given a dose of Rocephin in the emergency department and sent home with oral antibiotics. Given patient's otherwise negative CT scan, patient was felt to be appropriate for discharge home. Patient was given return precautions. Critical Care Critical Care Time Critical Care Time: No
[2025-02-12 09:36] LABS: Microscopic, Urine URINE MICROSCOPIC (MICROSCOPIC)
[2025-02-12 09:39] LABS: Bilirubin,Urine Negative (Negative); Color,Urine YELLOW (Yellow); Glucose,Urine (UA) Negative (Negative); Ketones,Urine Negative (Negative); Leukocyte Esterase,Urine Negative (Negative); PH,Urine 7.0 (5.0-8.5); Protein,Urine TRACE (Negative); Specific Gravity, Urine 1.015 (1.005-1.030); Urobilinogen,Urine 1.0 EU/dl (0.2)
[2025-02-12] MEDS: ONDANSETRON 4MG/2ML VIAL 4 MG IV (09:45)
[2025-02-12] MEDS: MORPHINE 4MG/ML SYRINGE 4 MG IV (09:45)
[2025-02-12 09:52] LABS: Bacteria,Urine Trace /lpf; RBC,Urine Occasional #/hpf (0-3); WBC,Urine Occasional #/hpf (0-3)
--- NOTE | 2025-02-12 10:32 | PC.NURSE ---
attempted to bladder scan patient was unsuccessful provider made aware
--- NOTE | 2025-02-12 11:32 | PC.NURSE ---
Called [facility] for plan of care.
--- NOTE | 2025-02-12 12:17 | PC.NURSE ---
Per this nurse PT was measured by tape alarm adjuster. Noted to be 80 inches around.
--- NOTE | 2025-02-12 12:28 | PC.NURSE ---
I rounded on the pt and updated him that his scan results are back. I explained the would be in shortly after completing a procedure. No new complaints. no needs voiced. call luz in reach.
--- NOTE | 2025-02-12 12:30 | CT_ITS ---
PROCEDURE INFORMATION: Exam: CT Abdomen And Pelvis With Contrast Exam date and time: 02/12/2025 12:45 PM Age: 49 years old Clinical indication: Other: R/O urinary obstruction TECHNIQUE: Imaging protocol: Computed tomography of the abdomen and pelvis with contrast. Radiation optimization: All CT scans at this facility use at least one of these dose optimization techniques: automated exposure control; mA and/or kV adjustment per patient size (includes targeted exams where dose is matched to clinical indication); or iterative reconstruction. Contrast material: ISOVUE; Contrast volume: 90 ml; Contrast route: IV; COMPARISON: US TESTICULAR 08/15/2021 11:52 AM FINDINGS: Liver: Hepatomegaly 24 cm.Lobulated liver consistent with cirrhosis. Gallbladder and biliary ducts: Cholecystectomy Pancreas: Pancreatic atrophy Spleen: Splenomegaly 15.7 cm. Adrenal glands: Normal. No mass. Kidneys and ureters: Normal. No hydronephrosis. Stomach and bowel: Sutures in the stomach consistent with gastric surgery . No evidence of obstruction Appendix: Normal appendix Intraperitoneal space: Unremarkable. No free air. No significant fluid collection. Vasculature: Unremarkable. No abdominal aortic aneurysm. Lymph nodes: Unremarkable. No enlarged lymph nodes. Urinary bladder: Unremarkable as visualized. Reproductive: Unremarkable as visualized. Bones/joints: Unremarkable. No acute fracture. Soft tissues: Unremarkable. IMPRESSION: 1. Hepatomegaly 24 cm.Lobulated liver consistent with cirrhosis. 2. Splenomegaly 15.7 cm.
[2025-02-12] MEDS: SODIUM CHLORIDE 0.9% 10ML SYR (RAD ONLY) 10 ML IV (12:48)
[2025-02-12] MEDS: IOPAMIDOL-370 (76%);100ML BOTTLE 90 ML IV (12:48)
--- NOTE | 2025-02-12 13:48 | PC.NURSE ---
asked provider if patient needed blood cultures before antibiotcs she stated no need for blood cultures
--- NOTE | 2025-02-14 09:53 | PC.NURSE ---
Urine culture results reviewed by Dr. Cardona. No new orders received.
--- NOTE | 2025-02-15 16:12 | PC.NURSE ---
I called and spoke with the pt to relay his final urine culture results. I explained that he should stop his current antibiotic and start the levaquin that called in.
--- OUTSIDE RECORDS SUMMARY | 2025-02-18 20:00 | XMS_ITS | Clinical Summary ---
Author Organization [facility] Address [address] [place] [phone] Phone Care Team Providers Care Etcher Apprentice Name Role Phone POONAMSARI Mensah Unavailable Unavailable SILVINA OT, PINKY Unavailable Unavailable MELVIN RN, MEÑO Unavailable Unavailable EMI PT, KAN Unavailable Unavailable Payers Payer Name Policy Type Policy Number Effective Date Expira tion Date MEDICARE PD [id number] Problems Condition Name Condition Details Condition Category [...] OF NICOTINE DEPENDENCE Active 12-22 00:00: 00 CORRECTION (CURRENT) USE OF ORAL HYPOGLYCEMIC DRUGS Active 12-22 00:00: 00 CORRECTION (CURRENT) USE OF INSULIN Active 12-22 00:00: 00 BUSINESS OFFICE COORDINATOR (CURRENT) USE OF ANTICOAGULAN TS Active 12-22 [...] 325 mg tablet 12-22 00:00: 00 Yes [id number] PAIN 2 tablet EVERY 6 HOURS 2 tablet EVERY 6 HOURS (route: oral) Med Classific ation: Analgesic , Anti-infl ammatory or Antipyret ic atorvastati n 40 mg tablet 12-22 00:00: 00 Yes [id number] CHOLESTEROL 1 tablet DAILY 1 tablet DAILY (route: oral) Med Classific ation: Cardiovas cular Therapy Agents Bactrim DS 800 mg-160 mg tablet 12-22 00:00: 00 12-27 23:59 :00 No [id number] INFECTION 2 tablet 2 TIMES DAILY 2 tablet 2 TIMES DAILY (route: oral) Med Classific ation: Anti-Infe ctive Agents bisoprolol fumarate 5 mg tablet 12-22 00:00: 00 Yes [id number] HTN 1 tablet 2 TIMES DAILY 1 tablet 2 TIMES DAILY (route: oral) Med Classific ation: Cardiovas cular Therapy Agents diltiazem 120 mg tablet 12-22 00:00: 00 Yes [id number] HYPERTENSIO N 1 tablet DAILY 1 tablet DAILY (route: oral) Med Classific ation: Cardiovas cular Therapy Agents gabapentin 600 mg tablet 12-22 00:00: 00 Yes [id number] PAIN 1 tablet 3 TIMES DAILY 1 tablet 3 TIMES DAILY (route: oral) Med Classific ation: Central Nervous System Agents lorazepam 1 mg tablet 12-22 00:00: 00 Yes [id number] ANXIETY 1 tablet DAILY 1 tablet DAILY (route: oral) Med Classific ation: Central Nervous System Agents metformin 1,000 mg tablet 12-22 00:00: 00 Yes [id number] DM2 1 tablet 2 TIMES DAILY 1 tablet 2 TIMES DAILY (route: oral) Med Classific ation: Endocrine naloxone 4 mg/actuatio n nasal spray 12-22 00:00: 00 Yes [id number] NARCOTIC OVERDOSE 1 spray DIRECTED 1 spray DIRECTED (route: nasal) Med Classific ation: Antidotes and other Reversal Agents Novolog Mix 70-30 U-100 Insulin 100 unit/mL subcutaneou s solution 12-22 00:00: 00 Yes [id number] DM2 90 unit 3 TIMES DAILY 90 unit 3 TIMES DAILY (route: subcutaneo us) Med Classific ation: Endocrine omeprazole 40 mg capsule,del ayed release 12-22 00:00: 00 Yes [id number] GERD 1 capsule 2 TIMES DAILY 1 capsule 2 TIMES DAILY (route: oral) Med Classific ation: Gastroint estinal Therapy Agents ondansetron 4 mg disintegrat ing tablet 12-22 00:00: 00 Yes [id number] NAUSEA 1 tablet EVERY 6 HOURS 1 tablet EVERY 6 HOURS (route: oral) Med Classific ation: Gastroint estinal Therapy Agents oxycodone 5 mg tablet 12-22 00:00: 00 Yes [id number] SEVERE PAIN 1 tablet EVERY 6 HOURS 1 tablet EVERY 6 HOURS (route: oral) Med Classific ation: Analgesic , Anti-infl ammatory or Antipyret ic spironolact one 50 mg tablet 12-22 00:00: 00 Yes [id number] BLOOD PRESSURE 1 tablet DAILY 1 tablet DAILY (route: oral) Med Classific ation: Cardiovas cular Therapy Agents torsemide 20 mg tablet 12-22 00:00: 00 Yes [id number] FLUID OVERLOAD 1 tablet DAILY 1 tablet DAILY (route: oral) Med Classific ation: Cardiovas cular Therapy Agents trazodone 100 mg tablet 12-22 00:00: 00 Yes [id number] SLEEP 1 tablet EVERY PM 1 tablet EVERY PM (route: oral) Med Classific ation: Central Nervous System Agents venlafaxine ER 150 mg capsule,ext ended release 24 hr 12-22 00:00: 00 Yes [id number] DEPRESSION 1 capsule DAILY 1 capsule DAILY (route: oral) Med Classific ation: Central Nervous System Agents Ventolin HFA 90 mcg/actuati on aerosol inhaler 12-22 00:00: 00 Yes [id number] WHEEZING/ SOA 2 puff EVERY 6 HOURS 2 puff EVERY 6 HOURS (route: inhalation ) Med Classific ation: Respirato ry Therapy Agents Vraylar 3 mg capsule 12-22 00:00: 00 Yes [id number] DEPRESSION 1 capsule DAILY 1 capsule DAILY (route: oral) Med Classific ation: Central Nervous System Agents Xarelto 20 mg tablet 12-22 00:00: 00 Yes [id number] ANTICOAGULA NT 1 tablet DAILY 1 tablet DAILY (route: oral) Med Classific ation: Hematolog ical Agents nitrofurant oin 100 mg tablet 01-01 00:00: 00 01-08 23:59 :00 No [id number] ANTIBIOTIC 100 mg EVERY 12 HOURS 100 mg EVERY 12 HOURS (route: oral) Med Classific ation: Genitouri nary Therapy Bactrim DS 800 mg-160 mg tablet 01-12 00:00: 00 01-19 23:59 :00 No [id number] PROPHYLAXIS FOR RIGHT UPPER EXTREMITY WOUND INFECTION 1 tablet 2 TIMES DAILY 1 tablet 2 TIMES DAILY (route: oral) Med Classific ation: Anti-Infe ctive Agents Cav[place] Durable Barrier 1.3 % topical cream 01-12 00:00: 00 Yes [id number] WOUND PROTECTANT Per instruc tions DAILY Per [...] EDUCATION AND RESOURCES NEEDED TO MAINTAIN HEALTH.] Encounters Start Date/Time End Date/Time Encounter Type Admission Type Attending [facility] Care Department Encounter ID [id number] 00:00:00 2025-02-19 00:00:00 Unknown NEW ADMISSION PINKY COOL, KAN [facility] [id number]
--- OUTSIDE RECORDS SUMMARY | 2025-02-18 20:00 | XMS_ITS | Clinical Summary ---
Author Organization [facility] Address [address] [place] [phone] Phone Care Team Providers Care Technical Specialist Name Role Phone POONAMSARI Mensah Unavailable Unavailable SILVINA OT, PINKY Unavailable Unavailable MELVIN RN, MEÑO Unavailable Unavailable EMI PT, KAN Unavailable Unavailable Payers Payer Name Policy Type Policy Number Effective Date Expira tion Date MEDICARE PD [id number] Problems Condition Name Condition Details Condition Category [...] OF NICOTINE DEPENDENCE Active 12-22 00:00: 00 USP (CURRENT) USE OF ORAL HYPOGLYCEMIC DRUGS Active 12-22 00:00: 00 USP (CURRENT) USE OF INSULIN Active 12-22 00:00: 00 DATA ARCHITECT MANAGER (CURRENT) USE OF ANTICOAGULAN TS Active [...] 325 mg tablet 12-22 00:00: 00 Yes [id number] PAIN 2 tablet EVERY 6 HOURS 2 tablet EVERY 6 HOURS (route: oral) Med Classific ation: Analgesic , Anti-infl ammatory or Antipyret ic atorvastati n 40 mg tablet 12-22 00:00: 00 Yes [id number] CHOLESTEROL 1 tablet DAILY 1 tablet DAILY (route: oral) Med Classific ation: Cardiovas cular Therapy Agents Bactrim DS 800 mg-160 mg tablet 12-22 00:00: 00 12-27 23:59 :00 No [id number] INFECTION 2 tablet 2 TIMES DAILY 2 tablet 2 TIMES DAILY (route: oral) Med Classific ation: Anti-Infe ctive Agents bisoprolol fumarate 5 mg tablet 12-22 00:00: 00 Yes [id number] HTN 1 tablet 2 TIMES DAILY 1 tablet 2 TIMES DAILY (route: oral) Med Classific ation: Cardiovas cular Therapy Agents diltiazem 120 mg tablet 12-22 00:00: 00 Yes [id number] HYPERTENSIO N 1 tablet DAILY 1 tablet DAILY (route: oral) Med Classific ation: Cardiovas cular Therapy Agents gabapentin 600 mg tablet 12-22 00:00: 00 Yes [id number] PAIN 1 tablet 3 TIMES DAILY 1 tablet 3 TIMES DAILY (route: oral) Med Classific ation: Central Nervous System Agents lorazepam 1 mg tablet 12-22 00:00: 00 Yes [id number] ANXIETY 1 tablet DAILY 1 tablet DAILY (route: oral) Med Classific ation: Central Nervous System Agents metformin 1,000 mg tablet 12-22 00:00: 00 Yes [id number] DM2 1 tablet 2 TIMES DAILY 1 tablet 2 TIMES DAILY (route: oral) Med Classific ation: Endocrine naloxone 4 mg/actuatio n nasal spray 12-22 00:00: 00 Yes [id number] NARCOTIC OVERDOSE 1 spray DIRECTED 1 spray DIRECTED (route: nasal) Med Classific ation: Antidotes and other Reversal Agents Novolog Mix 70-30 U-100 Insulin 100 unit/mL subcutaneou s solution 12-22 00:00: 00 Yes [id number] DM2 90 unit 3 TIMES DAILY 90 unit 3 TIMES DAILY (route: subcutaneo us) Med Classific ation: Endocrine omeprazole 40 mg capsule,del ayed release 12-22 00:00: 00 Yes [id number] GERD 1 capsule 2 TIMES DAILY 1 capsule 2 TIMES DAILY (route: oral) Med Classific ation: Gastroint estinal Therapy Agents ondansetron 4 mg disintegrat ing tablet 12-22 00:00: 00 Yes [id number] NAUSEA 1 tablet EVERY 6 HOURS 1 tablet EVERY 6 HOURS (route: oral) Med Classific ation: Gastroint estinal Therapy Agents oxycodone 5 mg tablet 12-22 00:00: 00 Yes [id number] SEVERE PAIN 1 tablet EVERY 6 HOURS 1 tablet EVERY 6 HOURS (route: oral) Med Classific ation: Analgesic , Anti-infl ammatory or Antipyret ic spironolact one 50 mg tablet 12-22 00:00: 00 Yes [id number] BLOOD PRESSURE 1 tablet DAILY 1 tablet DAILY (route: oral) Med Classific ation: Cardiovas cular Therapy Agents torsemide 20 mg tablet 12-22 00:00: 00 Yes [id number] FLUID OVERLOAD 1 tablet DAILY 1 tablet DAILY (route: oral) Med Classific ation: Cardiovas cular Therapy Agents trazodone 100 mg tablet 12-22 00:00: 00 Yes [id number] SLEEP 1 tablet EVERY PM 1 tablet EVERY PM (route: oral) Med Classific ation: Central Nervous System Agents venlafaxine ER 150 mg capsule,ext ended release 24 hr 12-22 00:00: 00 Yes [id number] DEPRESSION 1 capsule DAILY 1 capsule DAILY (route: oral) Med Classific ation: Central Nervous System Agents Ventolin HFA 90 mcg/actuati on aerosol inhaler 12-22 00:00: 00 Yes [id number] WHEEZING/ SOA 2 puff EVERY 6 HOURS 2 puff EVERY 6 HOURS (route: inhalation ) Med Classific ation: Respirato ry Therapy Agents Vraylar 3 mg capsule 12-22 00:00: 00 Yes [id number] DEPRESSION 1 capsule DAILY 1 capsule DAILY (route: oral) Med Classific ation: Central Nervous System Agents Xarelto 20 mg tablet 12-22 00:00: 00 Yes [id number] ANTICOAGULA NT 1 tablet DAILY 1 tablet DAILY (route: oral) Med Classific ation: Hematolog ical Agents nitrofurant oin 100 mg tablet 01-01 00:00: 00 01-08 23:59 :00 No [id number] ANTIBIOTIC 100 mg EVERY 12 HOURS 100 mg EVERY 12 HOURS (route: oral) Med Classific ation: Genitouri nary Therapy Bactrim DS 800 mg-160 mg tablet 01-12 00:00: 00 01-19 23:59 :00 No [id number] PROPHYLAXIS FOR RIGHT UPPER EXTREMITY WOUND INFECTION 1 tablet 2 TIMES DAILY 1 tablet 2 TIMES DAILY (route: oral) Med Classific ation: Anti-Infe ctive Agents Cavilon Durable Barrier 1.3 % topical cream 01-12 00:00: 00 Yes [id number] WOUND PROTECTANT Per instruc tions DAILY Per [...] End Date/Time Encounter Type Admission Type Attending [facility] Facility Care Department Encounter ID [id number] 00:00:00 2025-02-19 00:00:00 Unknown NEW ADMISSION PINKY COOL, KAN HOFFMANN [facility] ED [id number]
== END 2025-02-12 14:17 | disposition home or self-care (01) ==
PROVIDERS: Emergency Provider Student in an Organized Health Care Education/Training Program; PCP Nurse Practitioner Family
DX: N39.0 Urinary tract infection, site not specified (principal); G47.33 Obstructive sleep apnea (adult) (pediatric); E11.621 Type 2 diabetes mellitus with foot ulcer; G47.00 Insomnia, unspecified; I50.30 Unspecified diastolic (congestive) heart failure; F17.210 Nicotine dependence, cigarettes, uncomplicated
CPT/HCPCS: 74177; 80053; 81001; 85025; 87086; 87088; 87186; 96365; 96375; 99285; J0696; J2270; J2405; Q9967

== ENCOUNTER 2025-02-16 17:56 | Emergency (ER) | payer MEDICARE, BC, SELFPAY ==
--- OUTSIDE RECORDS SUMMARY | 2024-12-20 13:30 | XMS_ITS | Encounter Summary ---
Author Organization [employer] ([place], [place], [place], [place]) Address [address] [place] [address] Care Team Providers Care Aviation Project Manager Name Role Phone Malcolm Hayward APRN Primary Care Provider [phone] Reason for Visit * Reason Comments Wound Care Encounter Details Date Type Department Care Team (Late st Contact Info) Description 12/20/2024 1:30 PM EDT Office Visit [facility] 1 [place] [address] Betina Shah APRN [address] [place] [address] [address] [place] [address] Localized tissue (HCC) (Primary Dx); Other specified local infections of the skin and subcutaneous tissue; Abscess of right groin; Skin ulcer of groin, with fat layer exposed (HCC); Type 2 diabetes mellitus with hyperglycemia (HCC); Diabetes mellitus with skin ulcer (HCC); Obesity Social History Tobacco Use Types Packs/Day Years Used Date Smoking Tobacco: Former Cigarettes Smokeless Tobacco: Current Snuff Tobacco Cessation:Ready to Q uit: Not Asked; Counseling Given: Not Answered Alcohol Use Standard Drinks/Week Comments Not Currently 0 (1 standard drink = 0.6 oz pure alcohol) former etoh abuse, quit 3 years ago Sex and Gender Information Value Date Recorded Sex Assigned at Not on file Legal Sex Male 6:23 PM CDT Gender Identity Not on file Sexual Orientation Not on file documented as of this encounter Last Filed Vital Signs Vital Sign Reading Time Taken Comments Blood Pressure 145/95 12/20/2024 1:21 PM EDT Pulse 83 12/20/2024 1:21 PM EDT Temperature 36.5 C (97.7 F) 12/20/2024 1:21 PM EDT Respiratory Rate - - Oxygen Saturation - - Inhaled Oxygen Concentration - - Weight - - Height - - Body Mass Index - - documented in this encounter Patient Instructions * Patient Instructions* Jeniffer Callaway RN - 12/20/2024 1:30 PM EDT wound care at home: Clean wound with wound cleanser after removal of old dressings Apply mesalt ribbon moistened with Vashe Cover with interdry AG and optilock super absorber Change dressing every day Aim to get one extra serving of protein per day Signs and symptoms of infection may include: Increased redness around wound, increased drainage, and / or increased pain Drainage with odor or color changes such as green / bright yellow drainage Call wound center for any concerns documented in this encounter Progress Notes * Betina Shah APRN - 12/20/2024 1:30 PM EDT Images from the original note were not included. Subjective [id number]-patient is a 49-year-old male who presents to the wound clinic for his initial visit for a wound related to a right groin abscess. [facility] through 12/17/2024. During this ho spitalization an I&D was done of the right groin. According to the discharge summary patient isto have follow-up with Sasha King for wound check and drain removal and patient would be called for a time for this. He was to be scheduled to follow-up with urology for Barber removal and evaluation of urge incontinence. He was to have been referred to home health. He was also to have been referred to [facility] wound care clinic for an appointment. Patient was also to have followed up with his home provider for ongoing diabetic wounds. Last recent lab work on file for patient from 12/15/2024 finds BUN decreased at 6, creatinine decreased at 0.59, and EGFR CR within normal limits at120.4. Patient presents to his initial wound care visit here accompanied by his daughter and . Talked with them about the importance of keeping his blood glucose under control with blood sugars 200 or less consistently. Discussed the need for good nutritional support to include increased protein as long as there is not a medical contraindication for this as well as daily multivitamin. Provided the patient's with the phone number from his discharge summary for the general surgery clinicto contact them and see about getting an appointment to have his drain removed. Plan for patient's wound is to pack the wounds with Vashe moistened Mesalt cover with OPTi lock and change daily for the moisture associated skin damage to his abdominal fold we will use Interdry Ag with an OPTi lock inthe middle of this and change it as needed for soiling. The Interdry can be hand washed and lined dried and reused several times before it has to be thrown away. Patient will be provided with a couple of these. Patient will have follow-up to return to the wound clinic in 1 week for reevaluation. No past medical history on file. No past surgical history on file. Review of Systems Constitutional: Negative for appetite change, fatigue, fever and unexpected weight change. HENT: Negative for facial swelling, sore throat and trouble swallowing. Eyes: Negative for photophobia and visual disturbance. Respiratory: Negative for shortness of breath and wheezing. Gastrointestinal: Negative for abdominal pain. Musculoskeletal: Negative for gait problem. Neurological: Negative for dizziness, speech difficulty, weakness and light-headedness. Psychiatric/Behavioral: Negative for agitation, behavioral problems, confusion, decreased concentration and self-injury. Objective Last Recorded Vitals There were no vitals taken for this visit. Physical Exam Constitutional: Appearance: Normal appearance. He is obese. HENT: Head: Normocephalic and atraumatic. Mouth/Throat: Mouth: Mucous membranes are moist. Eyes: Pupils: Pupils are equal, round, and reactive to light. Pulmonary: Effort: Pulmonary effort is normal. Abdominal: Palpations: Abdomen is soft. Skin: General: Skin is warm and dry. Comments: I and D site with pen randi drains in place Neurological: Mental Status: He is alert and oriented to person, place, and time. Psychiatric: Mood and Affect: Mood normal. Behavior: Behavior normal. Thought Content: Thought content normal. Judgment: Judgment normal. Labs: No results found for this visit on 12/20/24 (from the past 24 hours). No image results found. Assessment Diagnoses and all orders for this visit: Localized tissue (HCC) - Wound Treatment Other specified local infections of the skin and subcutaneous tissue - Wound Treatment Abscess of right groin - Wound Treatment Skin ulcer of groin, with fat layer exposed (HCC) - Wound Treatment Type 2 diabetes mellitus with hyperglycemia (HCC) - Wound Treatment Diabetes mellitus with skin ulcer (HCC) - Wound Treatment Obesity - Wound Treatment * Jeniffer Callaway RN - 12/20/2024 1:30 PM EDT Images from the original note were not included. Attached media from the original note were not included. 12/20/24 1359 Wound 12/20/24 Inguinal Right Date First Assessed/Time First Assessed: 12/20/24 1359 Location: Inguinal Wound Location Orientation: Right Wound Image Images linked Site Assessment Granulation (Marcelo drain in place) Saba-Wound Assessment Edema;Erythematous;Indurated Shape Cluster Wound Length (cm) 4.5 cm Wound Width (cm) 9.6 cm Wound Surface Area (cm^2) 43.2 cm^2 Wound Depth (cm) 5.8 cm Wound Volume (cm^3) 250.56 cm^3 Undermining 3 cm Undermining Clock Position of Wound 10 Undermining Clock Position End of Wound 2 Margins Well-defined edges Drainage Description Sanguineous Drainage Amount Moderate Odor None Wound Bed Granulation (%) 100 % (Full wound bed not visible) Non-staged Wound Description Full thickness * Jeniffer Callaway RN - 12/20/2024 1:30 PM EDT New pt visit for wound care. Removed current dressings of wounds, mechanically debrided with 0.9% normal saline and gauze after removal of dressings. Orders below followed for wound care today in clinic: Clean wound(s) in clinic today with 0.9% normal saline after removal of dressings Apply topical lidocaine 4% or 5% in clinic as needed for pain control Perform the following wound care to right groin wound: Clean wound with Vashe Apply skin protectant to saba-wound Primary dressing- mesalt ribbon moistened with Vashe Secondary dressing-optilock, interdry AG Change dressing daily Plan of Care: Follow up provider visit in 1 week Pt tolerated wound care well. Policy procedures followed for wound care performed in clinic. Instructed pt on wound care. All wound care instructions along with wrap-up education printed and handed to patient at end of visit. documented in this encounter Plan of Treatment Not on file documented as of this encounter Procedures Procedure Name Priority Date/Time Associated Diagnosis Comments WOUND TREATMENT Routine 12/20/2024 3:35 PM EDT Localized tissue (HCC) Other specified local infections of the skin and subcutaneous tissue Abscess of right groin Skin ulcer of groin, with fat layer exposed (HCC) Type 2 diabetes mellitus with hyperglycemia (HCC) Diabetes mellitus with skin ulcer (HCC) Obesity documented in this encounter Results * Wound Treatment (12/20/2024 3:35 PM EDT) Betina Shah APRN NURSING PATHWAYS ORDERABLES Melba l Result documented in this encounter Visit Diagnoses Diagnosis Localized tissue (HCC)- Primary Gangrene Other specified local infections of the skin and subcutaneous tissue Abscess of right groin Skin ulcer of groin, with fat layer exposed (HCC) Type 2 diabetes mellitus with hyperglycemia (HCC) Diabetes mellitus with skin ulcer (HCC) Type II or unspecified type diabetes mellitus with other specified manifestations, not stated as uncontrolled Obesity Obesity, unspecified documented in this encounter Care Teams Aviation Project Manager Relationship Specialty Start Date End Date Malclom Hayward APRN [address] [place] [address] PCP - General Nurse Practitioner 12/20/24 documented as of this encounter
--- OUTSIDE RECORDS SUMMARY | 2025-01-10 12:00 | XMS_ITS | Encounter Summary ---
Author Organization Healthcare Address [address] [id number] Care Team Providers Care Special Events Driver Name Role Phone Malcolm Hayward CORPORATE EXECUTIVE CHEF Primary Care Provider [phone] Reason for Visit * Reason Comments Follow-up Encounter Details Date Type Department Care Team (Late st Contact Info) Description 01/10/2025 12:00 PM EDT Office Visit [facility] [address], [address] [place] [address] Abigail King APRN [address] [place] [address] Dermatitis associated with moisture (Primary Dx); Boil of trunk Social History Tobacco Use Types Packs/Day Years [...] any time in the past 12 m [facility], were you homeless or living in a mcc (including now)? No 12/16/2024 Utilities Answer Date [...] Sign Reading Time Taken Comments Blood Pressure 156/90 01/10/2025 12:01 PM EDT Pulse 93 01/10/2025 12:01 PM EDT Temperature 36.4 C (97.5 F) 01/10/2025 11:58 AM EDT Respiratory Rate 16 01/10/2025 11:58 AM EDT Oxygen Saturation 98% 01/10/2025 11:58 AM EDT Inhaled Oxygen Concentration - - Weight 256 kg (563 lb 4.8 oz) 01/10/2025 11:58 A M EDT Height 182.9 cm (6' 0.01 ) 01/10/2025 11:58 AM E DT Body Mass Index 76.38 01/10/2025 11:58 AM EDT documented in this encounter Miscellaneous Notes * Progress Notes - Kandy Olmos RN - 01/10/2025 12:00 PM EDTAttached media from the original note were not included. * Progress Notes - Abigail King APRN - 01/10/2025 12:00 PM EDT 01/10/25 Gonzalo Yehuda Russell Dear Malcolm Hayward APRN, [facility] Gonzalo Russell is a 49 y.o. 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 He was recently discharged after abscess requiring bedside I&D and drain placement. Since discharge he has been doing well. He is very anxious to have his drains removed. He denies fevers, chills, N/V, or purulent drainage. Review of Systems Relevant review of systems was obtained as able and is negative unless stated above in HPI. Past Medical History Past Medical History[1] Reviewed as documented above Past Surgical History Surgical History[2] Reviewed as documented above Social History reports that he has quit smoking. His smoking use included cigarettes. His smokeless tobacco use includes snuff. He reports that he does not currently use alcohol. He reports that he does not use drugs. Reviewed as documented above Family History Family History[3] Reviewed as documented above Current Medications Current Medications[4] Vitals Vitals: 01/10/25 1201 BP: (!) 156/90 Pulse: 93 Resp: Temp: SpO2: Physical Exam Physical Exam Vitals and nursing note reviewed. Constitutional: Appearance: He is obese. HENT: Head: Normocephalic. Right Ear: External ear normal. Left Ear: External ear normal. Nose: Nose normal. Mouth/Throat: Mouth: Mucous membranes are moist. Pharynx: Oropharynx is clear. Eyes: Conjunctiva/sclera: Conjunctivae normal. Pupils: Pupils are equal, round, and reactive to light. Pulmonary: Effort: Pulmonary effort is normal. Comments: SOA after moving to clinic bed Abdominal: General: Abdomen is flat. Bowel sounds are normal. Palpations: Abdomen is soft. Musculoskeletal: General: Normal range of motion. Cervical back: Normal range of motion. Skin: General: Skin is warm and dry. Capillary Refill: Capillary refill takes less than 2 seconds. Comments: Groin with erythema Wounds clean with serous drainage Neurological: General: No focal deficit present. Mental Status: He is alert and oriented to person, place, and time. Mental status is at baseline. Psychiatric: Mood and Affect: Mood normal. Behavior: Behavior normal. Thought Content: Thought content normal. Judgment: Judgment normal. BMI: Body mass index is 76.38 kg/m??. Assessment and Plan 1. Dermatitis associated with moisture -Vkgazdwp-Wcpdxr-Jerpugp Alc (A/D EMOLLIENT) cream- Apply 1 Application for up to 14 days. Wash excoriated areas and pat dry. Once completely dried, apply cream. Allow to fully dry and then may coverwith dry dressing. - Stomahesive- Apply 1 Application topically as needed (as needed). May apply powder over washed areas, and on top of protectant cream. May be mixed together for application. - Furuncle treatment: Bactrim - He would prefer not to return unless absolutely necessary because of the distance to [place]. He will call us if any changes. Abigail King APRN [1] Past Medical History: Diagnosis Date Alcohol abuse, in remission Alcohol abuse, in remission Anxiety disorder, unspecified Anxiety Atrial fibrillation ([facility]/HCC) CHF (congestive heart failure) ([facility]) Hyperlipidemia Hypertension Personal history of other diseases of the [...] history of pneumonia (recurrent) History of pneumonia Sleep apnea Type 2 diabetes mellitus [2] Past Surgical History: Procedure Laterality Date ARTERIAL STENT PLACEMENT CHOLECYSTECTOMY GASTRIC BYPASS [3] Family History Problem Relation Name Age of Onset Alcohol abuse Mother Alcohol abuse Paternal Grandmother Alcohol abuse Mother's Sister Alcohol abuse Mother's Brother [4] Current Outpatient Medications Medication Sig Dispense Refill acetaminophen (Tylenol) 325 MG tablet Take 2 tablets by mouth every 6 hours as needed for pain. Under [place] law, monthly prescriptions (30 days) can be refilled at 25 days and three-month prescriptions (90 days) at 80 days. Please contact the insurance company with questions if refills are denied. 100 tablet 0 albuterol 108 (90 Base) MCG/ACT inhaler Inhale 2 puffs every 4 to 6 hours as needed for wheezing orshortness of breath. atorvastatin (Lipitor) 40 MG tablet Take 1 tablet by mouth daily. bisoprolol (Zebeta) 5 MG tablet Take 1 tablet by mouth 2 times a day. cariprazine (Vraylar) 3 MG capsule Take 1 capsule by mouth daily. dilTIAZem CD (Cardizem CD) 120 MG 24 hr capsule Take 1 capsule by mouth daily. gabapentin (Neurontin) 600 MG tablet Take 1 tablet by mouth 3 times a day. HYDROcodone-acetaminophen ([place]) 10-325 MG tablet Take 1 tablet by mouth every 6 hours as needed. insulin NPH-insulin regular (NovoLIN 70/30 FlexPen) (70-30) 100 UNIT/ML injection pen Inject 90 Units under the skin 3 times a day before meals. 15 mL 3 LORazepam (Ativan) 1 MG tablet Take 1 tablet by mouth daily as needed. metFORMIN (Glucophage) 1000 MG tablet TAKE 1 TAB BY MOUTH 2 (TWO) TIMES A DAY WITH MEALS. MUST COMPLETE LABS FOR FURTHER RESULTS. 180 tablet 1 mupirocin (Bactroban) 2 % ointment Apply 1 Application topically 2 times a day. naloxone (Narcan) 4 mg/0.1 mL nasal spray 1. Give 1 spray in nostril for no/slow breathing or cannot wake after opioid use 2. Call 911 3. Repeat in other nostril if symptoms continue 1 each 0 omeprazole (PriLOSEC) [address] capsule Take 1 capsule by mouth 2 times a day. ondansetron ODT (Zofran-ODT) 4 MG disintegrating tablet Dissolve 1 tablet on the tongue every 6 hours as needed for nausea or vomiting. 20 tablet 0 polyethylene glycol (Miralax) 17 g packet Take 17 g by mouth daily. 30 packet 0 rivaroxaban (Xarelto) 20 MG tablet Take 1 tablet by mouth daily. spironolactone (Aldactone) 50 MG tablet Take 1 tablet by mouth daily. torsemide (Demadex) 20 MG tablet Take 1 tablet by mouth daily. traZODone (Desyrel) 100 MG tablet Take 1 tablet by mouth nightly. venlafaxine XR (Effoxor-XR) 150 MG 24 hr capsule Take 1 capsule by mouth daily. Lztlnpqa-Mhchbb-Dztkklr Alc (A/D EMOLLIENT) cream Apply 1 Application topically As Directed (See directions) for up to 14 days. Wash excoriated areas and pat dry. Once completely dried, apply cream. Allow to fully dry and then may cover with dry dressing. Protect skin folds with dry pads or clean pillow cases to keep skin from touching together. Apply cream at least twice daily. May re apply if area becomes moist from wound drainage. 113 mL 3 Ostomy Supplies (stomahesive) powder powder Apply 1 Application topically as needed (as needed). May apply powder over washed areas, and on top of protectant cream. May be mixed together for application. 28.3 g 3 oxyCODONE (Roxicodone) 5 MG immediate release tablet Take 1 tablet by mouth every 6 hours as neededfor severe pain. (Patient not taking: Reported on 01/10/2025) 9 tablet 0 No current facility-administered medications for this visit. documented in this encounter Plan of Treatment Upcoming Encounters Date Type Department Care Team (Late st Contact Info) Description 03/21/2025 2:40 PM EDT Office Visit [facility] [place] [address] [place] [address] Laureano Jensen MD [address] [place] [address] 03/29/2025 2:20 PM EDT [facility] [address] [place] [address] Pratibha Forde PA [address] [facility] [address] [place] [address] documented as of this encounter Visit Diagnoses Diagnosis Dermatitis associated with moisture- Primary Boil of trunk Carbuncle and furuncle of trunk documented in this encounter Additional Health Concerns Assessment Noted Time PHQ-9 Depression Total Score: 0 09/14/19 25 2:29 PM EST A fall risk assessment has been complete d for the patient 09/13/2024 2:29 PM EST A Body Mass Index follow-up plan has been documented for the patient 01/11/2025 6:19 PM EDT documented as of this encounter Care Teams Special Events Driver Relationship Specialty Start Date End Date Malcolm Hayward APRN [address] [place] [address] PCP - General 09/21/23 documented as of this encounter
[2025-02-16 18:06] VITALS: BP 139/76; PULSE 78; RESP 21; TEMP 36.8; O2SAT 97; BMI 77.3
--- NOTE | 2025-02-16 18:10 | PC.NURSE ---
PVR 450ml
--- OUTSIDE RECORDS SUMMARY | 2025-02-16 18:12 | XMS_ITS | Encounter Summary ---
Author Organization Healthcare Address [address] [id number] Care Team Providers Care Safety Sealer Name Role Phone Malcolm Hayward LEAKAGE TESTER Primary Care Provider [phone] Reason for Visit * Reason Comments Med Refill Encounter Details Date Type Department Care Team (Late st Contact Info) Description 07/07/2024 Refill [facility] [address] [place] [address] Mayra Torres PA [address] [address] Type 2 diabetes mellitus (CMS/HCC) [...] Description 03/21/2025 2:40 PM EDT Office Visit [facility] [place] [address] [place] [address] Laureano Jensen MD [address] [place] [phone] 03/29/2025 2:20 PM EDT Office Visit [facility] [address] [place] [phone] Pratibha Forde PA [address] [address] documented as of this encounter [...] documented as of this encounter Care Teams Safety Sealer Relationship Specialty Start Date End Date Malcolm Hayward APRN [address] [place] [address] PCP - General 09/21/23 documented as of this encounter
--- OUTSIDE RECORDS SUMMARY | 2025-02-16 18:13 | XMS_ITS | Encounter Summary ---
Author Organization Healthcare Address [address] [id number] Care Team Providers Care Web Developer Programmer Name Role Phone Malcolm Hayward ADALGISA Primary Care Provider [phone] Encounter Details Date Type Department Care Team (Late st Contact Info) Description 01/02/2025 Telephone [facility] [address], [address] [place] [address] Juliana Guzmán RN CH-PAV A 7 T2 [...] the past 12 months has th e [employer], gas, oil, or water company threatened to [...] Description 03/21/2025 2:40 PM EDT Office Visit [facility] [place] [address] [place] [address] Laureano Jensen MD [address] [place] [address] 03/29/2025 2:20 PM EDT Office Visit [facility] [address] [place] [address] Pratibha Forde PA [address] [place] [address] documented as of this encounter [...] documented as of this encounter Care Teams Web Developer Programmer Relationship Specialty Start Date End Date Malcolm Hayward APRN [address] [place] [address] PCP - General 09/21/23 documented as of this encounter
--- OUTSIDE RECORDS SUMMARY | 2025-02-16 18:13 | XMS_ITS | Clinical Summary ---
[facility] [address] [place] [address] Care Team Providers Care Consulting Practice Manager Name Role Phone Provider, No Known Primary [...] to complete this topic Insurance Care Teams Consulting Practice Manager Relationship Specialty Start Date End Date Provider, No Known [facility] [address] PCP - General 02/11/21
--- OUTSIDE RECORDS SUMMARY | 2025-02-16 18:13 | XMS_ITS | Encounter Summary ---
Author Organization Healthcare Address [address] [place] [address] Care Team Providers Care Product Development Ecologist Name Role Phone Malcolm Hayward ADALGISA Primary Care Provider [phone] Reason for Visit * Reason Onset Date Comments Med Refill 01/02/2025 Encounter Details Date Type Department Care Team (Late st Contact Info) Description 01/02/2025 [facility]ill [facility] [address], [address] [place] [address] Rachael Berrios APRN [address] [place] [address] Social History Tobacco Use Types [...] any time in the past 12 m [facility], were you homeless or living in [...] Description 03/21/2025 2:40 PM EDT Office Visit [facility] [place] [address] [facility] [place] [address] Laureano Jensen MD [address] [place] [phone] 03/29/2025 2:20 PM EDT Office Visit [facility] Endocrinology [address] [place] [phone] Pratibha Forde PA [address] [place] [address] documented as of this encounter [...] documented as of this encounter Care Teams Product Development Ecologist Relationship Specialty Start Date End Date Malcolm Hayward APRN [address] [id number] PCP - General 09/21/23 documented as of this encounter
--- OUTSIDE RECORDS SUMMARY | 2025-02-16 18:13 | XMS_ITS | Encounter Summary ---
Author Organization Healthcare Address [address] [id number] Care Team Providers Care General Manager In Training Name Role Phone Malcolm Hayward ADALGISA Primary Care Provider [phone] Encounter Details Date Type Department Care Team (Late st Contact Info) Description 12/19/2024 Telephone [facility] [address], [address] [place] [phone] Juliana Guzmán RN CH-PAV A 7 T2 [...] EDT Spoke with patient's . [facility] can see patient as early as tomorrow to discuss concerns. aware and will let patient know. 12/27 appt at cancelled now that [facility] will assume all care ofwound documented in this encounter Plan of Treatment Upcoming Encounters Date Type Department Care Team (Late st Contact Info) Description 03/21/2025 2:40 PM EDT Office Visit [facility] [place] [address] [place] [address] Laureano Jensen MD [address] [place] [address] 03/29/2025 2:20 PM EDT Office Visit [facility] [address] [place] [address] Pratibha Forde PA [address] [facility] [address] [place] [address] documented as of this encounter [...] documented as of this encounter Care Teams General Manager In Training Relationship Specialty Start Date End Date Malcolm Hayward APRN [address] [place] [address] PCP - General 09/21/23 documented as of this encounter
--- OUTSIDE RECORDS SUMMARY | 2025-02-16 18:13 | XMS_ITS | Encounter Summary ---
Author Organization Healthcare Address [address] [place] [address] Care Team Providers Care Reed Dipper Name Role Phone Malcolm Hayward ADALGISA Primary Care Provider [phone] Encounter Details Date Type Department Care Team (Late st Contact Info) Description 12/21/2024 Telephone [facility] [address], [address] [place] [phone] Ana Huddleston I, RN [facility] Social History Tobacco Use Types [...] were you homeless or living in a care home (including now)? No 12/16/2024 Utilities Answer [...] Description 03/21/2025 2:40 PM EDT Office Visit [facility] [place] [address] [place] [address] Laureano Jensen MD [address] [place] [address] 03/29/2025 2:20 PM EDT Office Visit [facility] Endocrinology [address] [place] [address] Pratibha Forde PA [address] [place] [address] documented as of this encounter [...] documented as of this encounter Care Teams Reed Dipper Relationship Specialty Start Date End Date Malcolm Hayward APRN [address] [place] [address] PCP - General 09/21/23 documented as of this encounter
--- OUTSIDE RECORDS SUMMARY | 2025-02-16 18:13 | XMS_ITS | Clinical Summary ---
Author Organization [facility] Address [address] [place] [address] Care Team Providers Care Garland Maker Name Role Phone Malcolm Hayward ADALGISA Primary Care Provider [phone] Allergies No known active allergies Medications atorvastatin [...] 6 hours as needed for pain. Under [place] law, monthly prescriptions (30 days) can be [...] mL 3 12/18/19 25 Active HYDROcodone-acetam inophen (Keller) 10-325 MG tablet Take 1 tablet by mouth every 6 hours as needed. Active Ostomy Supplies (stomahesive) powder powderIndications: Dermatitis associated with moisture Apply 1 Application topically as needed (as needed). May apply powder over washed areas, and on top of protectant cream. May be mixed together for application. 28.3 g 3 01/11/20 25 Active Nzwhnkpb-Eymqxb-Nm earyl Alc (A/D EMOLLIENT) creamIndications:D ermatitis associated [...] Description 01/10/2025 12:00 PM EDT Office Visit [facility] General Surgery [address], [address] [place] [address] Abigail King, FILAMENT WOUND PARTS FABRICATOR Dermatitis associated with moisture (Primary Dx); Boil of trunk 01/10/2025 Travel 01/02/2025 Telephone [facility] General Surgery [address], [address] [place] [address] Juliana Guzmán, RN 01/02/2025 Refill [facility] General Surgery [address], [address] [place] [phone] Rachael Berrios APRN 12/21/2024 Telephone [facility] Urology [address], 2[address] [place] [address] Ana Huddleston I, LOLA 12/19/2024 Telephone [facility] General Surgery [address], 1st [place] [address] Juliana Guzmán, RN 12/19/2024 Refill [facility] General Surgery [address], 1[address] [place] [address] Rachael Berrios APRN 12/12/2024 10:28 PM EDT - 12/17/2024 1:17 PM EDT Hospital Encounter [facility] HUY[facility] 9 [address] [place] [address] Nicole Casas MD Griffen, Margaret M, MD Nickols, Alexis K, MD Abscess of groin, right (Primary Dx); Urge incontinence; Urinary retention; Acute kidney injury ([facility]) Discharge Disposition: Home or Self Care 12/12/2024 Travel 12/09/2024 Orders Only External Location [address] [place] [phone] Provider, External 12/09/2024 Refill [facility] Endocrinology [address] [place] [address] Divine Archer, FILAMENT WOUND PARTS FABRICATOR Type 2 diabetes mellitus with hyperglycemia, with long-term current use of insulin ([facility]) 12/02/2024 Refill [facility] Endocrinology [address] [place] [address] Divine Archer, FILAMENT WOUND PARTS FABRICATOR from Last 3 Months Immunizations Immunization Administration [...] any time in the past 12 m [facility], were you homeless or living in a retirement (including now)? No 12/16/2024 Utilities Answer Date Recorded In the past 12 months has e [employer], gas, oil, or water [employer] threatened to shut off services in your [...] Description 03/21/2025 2:40 PM EDT Office Visit [facility] [address] [place] [address] Laureano Jensen MD [address] [place] [address] 03/29/2025 2:20 PM EDT Office Visit [facility] Endocrinology [address] [place] [address] Pratibha Forde PA [address] [address] Health Maintenance Due Date Last [...] 2022 Sigmoidoscopy 2022 UKY-Colorectal Cancer Screening 2022 [id number] Vaccine ( - season) 2024 02/22/2021, 01/25/2021 [...] 12:50 AM EDT Abscess of groin, right MI DRAIN SKIN ABSCESS COMPLIC Routine 12/13/2024 12:50 [...] Comment 12/17/2024 7:58 AM EDT [facility] Bankruptcy Law Specialist ID Geo Gonzalez 025 7:58 AM EDT HEALTHCARE LAB Device ID [id number] 12/17/2024 7:58 AM EDT HEALTHCARE LAB Specimen Type POC Capillary 12/17/2024 7:58 AM EDT [facility]ALTH[facility]ARE LAB Blood Capillary blood specimen / Unknown 12/17/2024 7:56 AM EDT 12/17/2024 7:58 AM EDT Rian Robertson MD LAB POINT OF CARE TE ST DOCKED DEVICE UNSOLICITED RESULTS Final Result Performing Organization Address City/[facility] Co de Phone Number [facility] [address] [place] [address] * Methicillin Resistant Staphylococcus aureus (MRSA) by PCR (12/16/2024 11:17 AM EDT) [facility] Methicillin Resistant Staphylococcus aureus (MRSA) by PCR Not Detected Not Detected 12/16/2024 5:31 PM EDT [facility] Swab Both anterior nares / Unknown Non-blood Collection / Unknown 12/16/2024 11:17 AM EDT 12/16/2024 3:23 PM EDT Narrative [facility] - 12/16/2024 5:31 PM EDT This [...] [facility]/ZIP Co de Phone Number [facility] [address] [place] [address] * (ABNORMAL) CBC W/O Differential (12/16/2024 1:43 AM EDT) Only the most recent of4 resultswithin the time period is included. WBC Count 4.08 3.70 - 10.30 10*3/uL LAB HEMATOLOGY METHOD 12/16/2024 2:10 AM EDT [facility] RBC Count 3.89(L) 4.60 - 6.10 10*6/uL LAB HEMATOLOGY METHOD 12/16/2024 2:10 AM EDT [facility] HGB 9.9(L) 13.7 - 17.5 g/dL LAB HEMATOLOGY METHOD 12/16/2024 2:10 AM EDT [facility] HCT 32.5(L) 40.0 - 51.0 % LAB HEMATOLOGY METHOD 12/16/2024 2:10 AM EDT [facility] Platelet Count 207 155 - 369 10*3/uL LAB HEMATOLOGY METHOD 12/16/2024 2:10 AM EDT [facility] MCV 84 79 - 98 fL LAB HEMATOLOGY METHOD 12/16/2024 2:10 AM EDT [facility] MCH 25.4(L) 26.0 - 32.0 pg LAB HEMATOLOGY METHOD 12/16/2024 2:10 AM EDT [facility] MCHC 30.5(L) 30.7 - 35.5 g/dL LAB HEMATOLOGY METHOD 12/16/2024 2:10 AM EDT [facility] RDW 17.0(H) 11.5 - 14.5 % LAB HEMATOLOGY METHOD 12/16/2024 2:10 AM EDT [facility] MPV 9.4 8.8 - 12.5 fL LAB HEMATOLOGY METHOD 12/16/2024 2:10 AM EDT [facility] nRBC 0.0 <=0.0 per 100 WBCs LAB HEMATOLOGY METHOD 12/16/2024 2:10 AM EDT [facility] Blood Venous blood specimen / Unknown Venipuncture / Unknown 12/16/2024 1:43 AM EDT 12/16/2024 1:59 AM EDT us Leidy Hernandez MD LAB BLOOD ORDERABLES Final Result Performing Organization Address City/[facility]/ZIP Co de Phone Number [facility] [address] [place] [address] * (ABNORMAL) Magnesium (12/16/2024 1:43 AM EDT) Only the most recent of3 resultswithin the time period is included. Magnesium, Plasma 1.7(L) 1.9 - 2.4 mg/dL 12/16/2024 2:30 AM EDT [facility] Blood Venous blood specimen / Unknown Venipuncture / Unknown 12/16/2024 1:43 AM EDT 12/16/2024 1:58 AM EDT Leidy Hernandez MD LAB BLOOD ORDERABLES Final Result Performing Organization Address [facility] Co de Phone Number [facility] [address] [place] [address] * (ABNORMAL) Renal function panel (12/16/2024 1:43 AM EDT) Only the most recent of2 resultswithin the time period is included. Glucose, Plasma 301(H) 74 - 99 mg/dL 12/16/2024 2:30 AM EDT [facility] BUN, Plasma 7 7 - 21 mg/dL 12/16/2024 2:30 AM EDT [facility] Creatinine, Plasma 0.62(L) 0.70 - 1.20 mg/dL 12/16/2024 2:30 AM EDT [facility] BUN/Creatinine Ratio 11 12/16/2024 2:30 AM EDT [facility] Sodium, Plasma 135(L) 136 - 145 mmol/L 12/16/2024 2:30 AM EDT [facility] Potassium, Plasma 3.7 3.6 - 4.9 mmol/L 12/16/2024 2:30 AM EDT [facility] Chloride, Plasma 97 97 - 107 mmol/L 12/16/2024 2:30 AM EDT [facility] CO2, Plasma 29 22 - 29 mmol/L 12/16/2024 2:30 AM EDT [facility] Anion Gap 9 6 - 16 mmol/L 12/16/2024 2:30 AM EDT [facility] Total Calcium, Plasma 8.9 8.9 - 10.2 mg/dL 12/16/2024 2:30 AM EDT [facility] Phosphorus, Plasma 2.7 2.5 - 4.5 mg/dL 12/16/2024 2:30 AM EDT [facility] Albumin, Plasma 2.7(L) 3.5 - 5.2 g/dL 12/16/2024 2:30 AM EDT [facility] eGFRcr 118.6 mL/min/1.7 3m*2 12/16/2024 2:30 AM EDT [facility] Comment:Reported eGFRcr in m L/min/1.73m2 is based the CKD-EPI 2020 equation that does not use a race coefficient. Blood Venous blood specimen / Unknown Venipuncture / Unknown 12/16/2024 1:43 AM EDT 12/16/2024 1:58 AM EDT Leidy Hernandez MD LAB BLOOD ORDERABLES Final Result Performing Organization Address City/[facility]/ZIP Co de Phone Number [facility] [address] [place] [address] * Phosphorus (12/15/2024 4:37 AM EDT) Only the most recent of2 resultswithin the time period is included. Phosphorus, Plasma 3.1 2.5 - 4.5 mg/dL 12/15/2024 7:02 AM EDT [facility] Blood Venous blood specimen / Unknown Venipuncture / Unknown 12/15/2024 4:37 AM EDT 12/15/2024 4:47 AM EDT Leidy Hernandez MD LAB BLOOD ORDERABLES Final Result [facility] [address] [place] [address] * (ABNORMAL) Basic Metabolic Panel, Plasma (12/15/2024 4:37 AM EDT) Only the most recent of2 resultswithin the time period is included. Glucose, Plasma 199(H) 74 - 99 mg/dL 12/15/2024 7:02 AM EDT [facility] BUN, Plasma 6(L) 7 - 21 mg/dL 12/15/2024 7:02 AM EDT [facility] Creatinine, Plasma 0.59(L) 0.70 - 1.20 mg/dL 12/15/2024 7:02 AM EDT [facility] BUN/Creatinine Ratio 10 12/15/2024 7:02 AM EDT [facility] Sodium, Plasma 137 136 - 145 mmol/L 12/15/2024 7:02 AM EDT [facility] Potassium, Plasma 3.5(L) 3.6 - 4.9 mmol/L 12/15/2024 7:02 AM EDT [facility] Chloride, Plasma 96(L) 97 - 107 mmol/L 12/15/2024 7:02 AM EDT [facility] CO2, Plasma 29 22 - 29 mmol/L 12/15/2024 7:02 AM EDT [facility] Anion Gap 12 6 - 16 mmol/L 12/15/2024 7:02 AM EDT [facility] Total Calcium, Plasma 8.6(L) 8.9 - 10.2 mg/dL 12/15/2024 7:02 AM EDT [facility] eGFRcr 120.4 mL/min/1.7 3m*2 12/15/2024 7:02 AM EDT [facility] Comment:Reported eGFRcr in m L/min/1.73m2 is based the CKD-EPI 2020 equation that does not use a race coefficient. Blood Venous blood specimen / Unknown Venipuncture / Unknown 12/15/2024 4:37 AM EDT 12/15/2024 4:47 AM EDT us Leidy Hernandez MD LAB BLOOD ORDERABLES Final Result [facility] [address] [place] [address] * MI DRAIN SKIN ABSCESS COMPLIC, HC DRAIN SKIN [...] infection Alternatives discussed: No treatment and observation [place] protocol: Procedure explained and questions answered to [...] 10.9(H) <5.7 % 12/13/2024 11:55 AM EDT [facility] Blood Venous blood specimen / Unknown Venipuncture / Unknown 12/12/2024 11:46 PM EDT 12/13/2024 12:06 AM EDT Narrative [facility] - 12/13/2024 11:55 AM EDT HA1C Interpretive Data: Diagnosis of Diabetes: Diabetic > or = 6.5% Pre-diabetic 5.7 to 6.4% Non-diabetic < or = 5.6% Glycemic Targets for Type I and Type II Diabetics: Non- Adults <7.0% Adults <6.0% Children and Adolescents <7.5% Source: [place] [employer]. Standards of medical care in diabetes,2017. Diabetes Care.2017:40 (suppl 1):S1-S135. us Nicole Casas MD LAB BLOOD ORDERABLES Melba don Result [facility] [address] [place] [address] * US OUTSIDE IMAGES (12/09/2024 8:20 AM EDT) Anatomical Region Laterality Modality Ultrasound 12/09/2024 8:20 AM EDT us External Provider IMG US PROCEDURES Final Result from Last [address] [place] [address] [place] [address] Advance Directives * Full Code (Latest Code Status on File) Date Activated Date Inactivated Comments 12/12/2024 11:07 PM 12/17/2024 3:22 PM Question Answer Comments I have reviewed the capacity from the link above and, if needed, have updated to appropriate status: Yes Care Teams Garland Maker Relationship Specialty Start Date End Date Malcolm Hayward APRN [address] [place] [address] PCP - General 09/21/23
--- OUTSIDE RECORDS SUMMARY | 2025-02-16 18:13 | XMS_ITS | Encounter Summary ---
Author Organization [employer] ([place], [place], [place], [place]) Address [address] [place] [address] Care Team Providers Care Utilization Engineer Name Role Phone Malcolm Hayward APRN Primary Care Provider [phone] Encounter Details Date Type Department Care Team [...] on filedocumented in this encounter Care Teams Utilization Engineer Relationship Specialty Start Date End Date Malcolm Hayward APRN [address] [phone] PCP - General Nurse Practitioner 12/20/24 documented as of this encounter
--- OUTSIDE RECORDS SUMMARY | 2025-02-16 18:13 | XMS_ITS | Encounter Summary ---
Author Organization Healthcare Address [address] [place] [address] Care Team Providers Care Gta Name Role Phone Malcolm Hayward ADALGISA Primary Care Provider [phone] Reason for Visit * Reason Onset Date Comments Med Refill 12/19/2024 Encounter Details Date Type Department Care Team (Late st Contact Info) Description 12/19/2024 Refill [facility] General Surgery [address], [address]st [place] [address] Rachael Berrios, ADALGISA [address] [place] [address] Social History Tobacco Use Types [...] any time in the past 12 m [facility], were you homeless or living [...] EDT Office Visit [facility] [address] [place] [address] Laureano Jensen MD [address] [place] [address] 03/29/2025 2:20 PM EDT Office Visit [facility] Endocrinology [address] [place] [address] Pratibha Forde PA [address] [place] [address] documented as of this encounter [...] documented as of this encounter Care Teams Gta Relationship Specialty Start Date End Date Malcolm Hayward APRN [address] [phone] PCP - General 09/21/23 documented as of this encounter
--- OUTSIDE RECORDS SUMMARY | 2025-02-16 18:13 | XMS_ITS | Clinical Summary ---
Author Organization [employer] ([place], [place], [place], [place]) Address [address] [place] [address] Care Team Providers Care Applied Technologist Name Role Phone Malcolm Hayward APRN Primary Care Provider [phone] Allergies No known active allergies Medications atorvastatin [...] Description 12/20/2024 1:30 PM EDT Office [facility] [address] [place] [address] Betina Shah APRN Localized tissue [...] Treatment (12/20/2024 3:35 PM EDT) Betina Shah PRODUCT CONSULTANT NURSING PATHWAYS ORDERABLES Melba l Result from Last 3 Months Insurance MEDICARE PART A B /[facility] Care Teams Applied Technologist Relationship Specialty Start Date End Date Malcolm Hayward APRN [address] [place] [address] PCP - General Nurse Practitioner 12/20/24
--- OUTSIDE RECORDS SUMMARY | 2025-02-16 18:13 | XMS_ITS | Referral Summary ---
Author Organization [facility] ([place], [place], [place], [place]) Address [address] [place] [address] Care Team Providers Care Trailer Mechanic Name Role Phone Malcolm Hayward APRN Primary Care Provider [phone] Encounters Date Type Department Care Team Description 12/20/2024 Travel 12/20/2024 1:30 PM EDT Office Visit [facility] [address] [place] [address] Betina Shah APRN Localized tissue [...] 3 Months Insurance MEDICARE PART A B /[facility] Care Teams Trailer Mechanic Relationship Specialty Start Date End Date Malcolm Hayward APRN [address] [phone] PCP - General Nurse Practitioner 12/20/24
--- OUTSIDE RECORDS SUMMARY | 2025-02-16 18:13 | XMS_ITS | Encounter Summary ---
Author Organization [facility] Address [address] [id number] Care Team Providers Care Building Supervisor Name Role Phone Malcolm Hayward PERFORMANCE TESTER Primary Care Provider [phone] Reason for Visit * Reason Comments Med Refill Encounter Details Date Type Department Care Team (Late st Contact Info) Description 12/02/2024 Refill [facility] Endocrinology [address] [place] [address] Divine Archer, PERFORMANCE TESTER [address] [facility] [address] [place] [address] Social History Tobacco Use Types [...] Description 03/21/2025 2:40 PM EDT Office Visit [facility] [place] [address] [place] [address] Laureano Jensen MD [address] [place] [address] 03/29/2025 2:20 PM EDT Office Visit [facility] Endocrinology [address] [place] [address] Pratibha Forde PA [address] [address] documented as of this encounter [...] documented as of this encounter Care Teams Building Supervisor Relationship Specialty Start Date End Date Malcolm Hayward APRN [address] [place] [address] PCP - General 09/21/23 documented as of this encounter
--- OUTSIDE RECORDS SUMMARY | 2025-02-16 18:13 | XMS_ITS | Encounter Summary ---
Author Organization Healthcare Address [address] [id number] Care Team Providers Care Director Of Conservation Name Role Phone Malcolm Hayward NIB INSPECTOR Primary Care Provider [phone] Reason for Visit * Reason Comments Med Refill Encounter Details Date Type Department Care Team (Late st Contact Info) Description 12/31/2023 Refill [facility]ocr[facility]ology [address] [place] [address] Earline Loaiza, NIB INSPECTOR [address] [facility] [address] [place] [address] Type 2 diabetes mellitus (CMS/HCC) [...] Description 03/21/2025 2:40 PM EDT Office Visit [facility] [place] [facility] [address] [place] [address] Laureano Jensen MD [address] [place] [address] 03/29/2025 2:20 PM EDT Office Visit [facility] Endocrinology [address] [place] [address] Pratibha Forde PA [address] [facility] [address] [place] [address] documented as of this encounter [...] documented as of this encounter Care Teams Director Of Conservation Relationship Specialty Start Date End Date Malcolm Hayward APRN [address] [place] [address] PCP - General 09/21/23 documented as of this encounter
--- OUTSIDE RECORDS SUMMARY | 2025-02-16 18:13 | XMS_ITS | Encounter Summary ---
Author Organization [facility] Address [address] [id number] Care Team Providers Care Order Processing Specialist Name Role Phone Malcolm Hayward APRN Primary Care Provider [phone] Encounter Details Date Type Department Care Team [...] any time in the past 12 m [facility], were you homeless or living in a senior living (including now)? No 12/16/2024 Utilities Answer Date [...] Description 03/21/2025 2:40 PM EDT Office Visit [facility] [place] [address] [facility] [place] [address] Laureano Jensen MD [address] [place] [address] 03/29/2025 2:20 PM EDT Office Visit [facility] Endocrinology [address] [place] [address] Pratibha Forde PA [address] [facility] [address] [place] [address] documented as of this encounter [...] documented as of this encounter Care Teams Order Processing Specialist Relationship Specialty Start Date End Date Malcolm Hayward APRN [address] [place] [address] PCP - General 09/21/23 documented as of this encounter
[2025-02-16 18:35] VITALS: BP 128/87; PULSE 84; O2SAT 97
[2025-02-16 18:50] LABS: Microscopic, Urine URINE MICROSCOPIC (MICROSCOPIC)
[2025-02-16 18:55] LABS: Bilirubin,Urine Negative (Negative); Color,Urine YELLOW (Yellow); Glucose,Urine (UA) TRACE (Negative); Ketones,Urine Negative (Negative); Leukocyte Esterase,Urine Negative (Negative); PH,Urine 7.0 (5.0-8.5); Protein,Urine Negative (Negative); Specific Gravity, Urine 1.015 (1.005-1.030); Urobilinogen,Urine 0.2 EU/dl (0.2)
[2025-02-16 19:11] LABS: WBC,Urine Occasional #/hpf (0-3)
[2025-02-16 19:12] LABS: Bacteria,Urine Trace /lpf
--- NOTE | 2025-02-16 19:39 | HMH.EDGENADL ---
Discharge Plan Disposition Patient Disposition: Home, Self-Care Condition: Good Prescriptions Prescriptions: New phenazopyridine [Pyridium] 100 mg tablet 100 mg PO Q8H Qty: 12 0RF No Action (DME) insulin syringe-needle U-100 [BD Insulin Syringe Ultra-Fine] 1 mL 30 gauge x 1/2 syringe See Rx Instructions .ROUTE .MEDSUPPLY Qty: 10 Rx Instructions: As directed (DME) pen needle, diabetic [Comfort EZ Pen [place]] 32 gauge x 5/32 needle See Rx Instructions .Route Qty: 100 0RF Rx Instructions: As directed diltiazem HCl 120 mg capsule,extended release 24hr 120 mg PO DAILY Qty: 90 3RF mupirocin 2 % ointment 1 applic topical BID 14 Days Qty: 22 1RF albuterol sulfate 90 mcg/actuation HFA aerosol inhaler 2 puff inhalation Q4-6H PRN (Reason: shortness of breath or wheezing) Qty: 8.5 3RF torsemide 20 mg tablet 20 mg PO Patient Comments: TAKE 1 TABLET BY MOUTH EVERY DAY NEEDED FOR EDEMA Novolin 70/30 U-100 Insulin 100 unit/mL (70-30) suspension 90 unit SQ gabapentin 600 mg tablet 600 mg PO TID Qty: 90 2RF lorazepam 1 mg tablet 1 mg PO DAILYP PRN (Reason: anxiety) Qty: 15 2RF Rx Instructions: +++Monthly+++ atorvastatin 40 mg tablet 40 mg PO HS Qty: 90 1RF omeprazole 40 mg capsule,delayed release(DR/EC) 40 mg PO BID Qty: 90 0RF nitrofurantoin monohyd/m-cryst [Macrobid] 100 mg capsule 100 mg PO Q12H 7 Days Qty: 14 0RF Rx Instructions: must administer with a meal/food hydrocodone-acetaminophen 10-325 mg tablet 1 tab PO TIDP PRN (Reason: pain) Qty: 90 0RF levofloxacin 750 mg tablet 750 mg PO DAILY Qty: 7 0RF Vraylar 3 mg capsule See Rx Instructions .ROUTE .COMPLEX Qty: 90 1RF Dose Instruction: TAKE 1 CAPSULE BY MOUTH DAILY Rx Instructions: TAKE 1 CAPSULE BY MOUTH DAILY metformin 1,000 mg tablet 1,000 mg PO BID Xarelto 20 mg tablet 20 mg PO QPMWITHMEAL tamsulosin [Flomax] 0.4 mg capsule 0.4 mg PO DAILY 7 Days Qty: 7 0RF levofloxacin 750 mg tablet 750 mg PO DAILY 5 Days Qty: 5 0RF venlafaxine 150 mg capsule,extended release 24hr 150 mg PO DAILY bisoprolol fumarate 5 mg tablet 5 mg PO BID Patient Comments: TAKE 1 TABLET BY MOUTH TWICE A DAY FOR BLOOD PRESSURE trazodone 100 mg tablet 100 mg PO HS Patient Comments: TAKE 1 TABLET AT BEDTIME spironolactone 50 mg tablet 50 mg PO DAILY Patient Comments: TAKE 1 TABLET BY MOUTH EVERY DAY Ozempic 0.25 mg or 0.5 mg (2 mg/3 mL) pen injector 0.25 mg SQ WEEKLY Qty: 3 1RF Rx Instructions: for 4 weeks acetaminophen 325 mg Tablet 650 mg PO Q4HP PRN (Reason: Fever Or Mild Pain (1-3)) Qty: 0 0RF calcium carbonate [Tums] 200 mg calcium (500 mg) Tablet,Chewable 500 mg PO QIDP PRN (Reason: Heartburn) Qty: 0 0RF Referrals Follow up/Referrals: Malcolm Hayward APRN [Primary Care Provider, Family Practice] - See instructions Activity Restrictions/Add. Instructions Additional Instructions/Restrictions: Continue taking the antibiotics as prescribed as well as the Flomax. Follow-up with urology as scheduled on Thursday. I will send you with Pyridium which may help with some of your symptoms but expect for your urine to turn bright orange. Continue taking your Lasix as prescribed. Clinical Impressions Clinical Impression: Dysuria Instructions Patient Instructions: DI for Urinary Tract Infection (UTI), DI for Urinary Tract Infection in Children Print Language Print Language: Trinid[place] Discharge ED Provider: Mayra Gill Adult HPI General Chief complaint: Urogenital-Male Stated complaint: Unable to pee Time Seen by Provider: 02/16/25 18:01 Mode of Arrival: Wheelchair Source of Information: Patient Description of Symptoms (Recalled from ER Triage Doc. by RN): Patient presents to ED from home with c/o difficulty urinating. States he was here a few days prior for the same thing and has an appointment with Urology on Thursday. States he has only been able to dribble and is unable to wait until Thursday for his appointment. History of Present Illness HPI narrative: Patient is a 49-year-old male with no significant past medical history except for multiple urinary tract infections who presents to the emergency department with difficulties urinating. Patient states he was here a few days prior with similar symptoms was found to have a UTI was given oral antibiotics which were changed yesterday based on the urine culture. Patient has an appointment with urology on Thursday. Patient states that he has a sensation that he needs to urinate but is only able to give out a small amount. Patient denies any back pain nausea vomiting. Patient denies any chest pain shortness of breath or other associated symptoms. Related Data Home Medications ?Medication ?Instructions ?Recorded ?Confirmed insulin syringe-needle U-100 1 mL #10 ea 02/18/24 02/11/25 30 gauge x 1/2 (BD Insulin Syringe Ultra-Fine) metformin 1,000 mg tablet 1,000 mg PO BID 02/18/24 02/11/25 rivaroxaban 20 mg tablet (Xarelto) 20 mg PO QPMWITHMEAL 02/18/24 02/11/25 Held on 12/12/24. Instructions: pending surgery, resume after surgery bisoprolol fumarate 5 mg tablet 5 mg PO BID 12/08/24 02/11/25 spironolactone 50 mg tablet 50 mg PO DAILY 12/08/24 02/11/25 trazodone 100 mg tablet 100 mg PO HS 12/08/24 02/11/25 venlafaxine 150 mg 150 mg PO DAILY 12/08/24 02/11/25 capsule,extended release 24 hr insulin human U-100 NPH-regulr 90 unit SQ 12/26/24 02/11/25 70-30 mix 100 unit/mL subcutaneous susp (Novolin 70/30 U-100 Insulin) torsemide 20 mg tablet 20 mg PO 12/26/24 02/11/25 Previous Rx's ?Medication ?Instructions ?Recorded pen needle, diabetic 32 gauge x #100 ea 09/16/23 (Comfort EZ Pen [place]) diltiazem HCl 120 mg 120 mg PO DAILY #90 caps 06/23/24 capsule,extended release 24 hr atorvastatin 40 mg tablet 40 mg PO HS #90 tabs 08/22/24 albuterol sulfate 90 mcg/actuation 2 puff inhalation Q4-6H PRN 09/27/24 aerosol inhaler shortness of breath or wheezing #8.5 grams mupirocin 2 % topical ointment 1 applic topical BID infection 14 11/30/24 days #22 grams semaglutide 0.25 mg or 0.5 mg (2 0.25 mg (0.368 mL) SQ WEEKLY #3 mL 12/09/24 mg/3 mL) subcutaneous pen injector (Ozempic) acetaminophen 325 mg tablet 650 mg (2 x 325 mg) PO Q4HP PRN 12/10/24 Fever Or Mild Pain (1-3) #0 tabs calcium carbonate (Tums) 500 mg (2.5 x 200 mg calcium (500 12/12/24 mg)) PO QIDP PRN Heartburn #0 tabs omeprazole 40 mg capsule,delayed 40 mg PO BID #90 caps 12/22/24 release gabapentin 600 mg tablet 600 mg PO TID #90 tabs 12/26/24 lorazepam 1 mg tablet 1 mg PO DAILYP PRN anxiety #15 tabs 12/26/24 nitrofurantoin 100 mg PO Q12H 7 days #14 caps 12/31/24 monohydrate/macrocrystals 100 mg capsule (Macrobid) hydrocodone 10 mg-acetaminophen 1 tab PO TIDP PRN pain #90 tabs 01/19/25 325 mg tablet tamsulosin 0.4 mg capsule (Flomax) 0.4 mg PO DAILY 7 days #7 caps 02/12/25 levofloxacin 750 mg tablet 750 mg PO DAILY #7 tabs 02/15/25 levofloxacin 750 mg tablet 750 mg PO DAILY 5 days #5 tabs 02/15/25 cariprazine 3 mg capsule (Vraylar) See Rx Instructions .Route 02/16/25 .COMPLEX #90 caps phenazopyridine 100 mg tablet 100 mg PO Q8H 6 doses #12 tabs 02/16/25 (Pyridium) Allergies Allergy/AdvReac Type Severity Reaction Status Date / Time vancomycin AdvReac Severe Redness of Verified 02/11/25 19:29 Skin clindamycin AdvReac Mild Nausea Verified 02/11/25 19:29 doxycycline AdvReac Mild Upset Verified 02/11/25 19:29 stomach, heartbur PFSH PFSH Disclaimer: The information contained in this section may have been updated after the patient was seen, as this information can be updated by other users. 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 Tachycardia Bilateral knee pain DDD (degenerative disc disease), lumbar Depression Morbid obesity with body mass index of 70 and over in adult CHF (congestive heart failure) COPD (chronic obstructive pulmonary disease) Diabetes Dyspnea BMI 60.0-69.9, adult Obesity Anxiety disorder Hypertension Diabetes type 2, uncontrolled Surgical History S/P gastric sleeve procedure History of gastric bypass Family History Father Cancer Other No significant family history Social History Smoking Status: Never smoker alcohol intake: former year quit: 2021 counseling given: Yes counseling provided: provider counseling substance use type: denies use current occupational status: unemployed and disabled Travel in the last 8 weeks?: None household members: spouse and children housing: house marital status: number of children: 1 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 current occupational exposures/hazards: No pets and animals: Yes pets and animals: cat(s) diet: other caffeine: Yes physical activity: none Have you lived/traveled outside US in past 30 days?: No Contact w/someone who lives/traveled outside US past 30 days?: No Exposure to someone with infectious disease in past 14 days?: No Do you have a fever (greater than 100.4 F or 38 C)?: No Have you tested positive for COVID-19?: No Exposed to someone with COVID-19 in past 14 days?: No Do you have a sore throat?: No Do you have a cough?: No Do you have any weakness?: No Do you have any diarrhea?: No Are you experiencing any unusual bleeding?: No Do you have any muscle aches/pain?: No Do you have any abdominal pain?: No Are you experiencing loss of taste or smell?: No Other Medical History Have you received the Flu Vaccine for this season: No Have you received the Pneumonia Vaccine: No ROS Obtained: Yes All systems reviewed & no additional complaints except as documented and Yes Systems reviewed as appropriate & no additional complaints except as documented Physical Exam General General appearance: alert and in no apparent distress Head Head exam: atraumatic, normocephalic and normal inspection Eye Eye exam: Present normal appearance, PERRL and EOMI; Absent scleral icterus ENT ENT exam: Present normal exam and normal external ear exam Neck Neck exam: Present normal inspection and full ROM Chest Chest inspection: Present normal inspection and symmetric chest wall rise Respiratory Respiratory exam: Present normal lung sounds bilaterally; Absent respiratory distress or wheezes Cardiovascular Cardiovascular exam: Present regular rate, normal rhythm and normal heart sounds Abdominal Exam Abdominal exam: Present soft and distention; Absent tenderness, guarding or rebound exam: Present circumcised and other (penis without erythema, normal circumcised penis ) Extremities Exam Extremities exam: Present normal inspection and full ROM Back Exam Back exam: Present normal inspection and full ROM Neurological Exam Neurological exam: Present alert and oriented X3 Psychiatric Psychiatric exam: Present normal affect and normal mood Skin Skin exam: Present warm and dry Medical Decision Making Medical Records Medical records reviewed: Yes I reviewed the patient's medical records. Screening: Per USPSTF and CDC recommendations, given the prevalence of disease in our region, it is our hospital?s policy to screen for HIV and viral Hepatitis for all patients aged 18 and over and those with ongoing risk factors. Sy Inquiry Pt receiving controlled substance: No Vital Signs: 02/16/25 18:06 02/16/25 18:35 02/16/25 19:50 Temperature 98.2 F 98.5 F Temperature Source Oral Oral Pulse Rate 84 84 Pulse Rate [Left] 78 Respiratory Rate 21 18 Blood Pressure 128/87 152/87 H Blood Pressure [Right Arm] 139/76 Blood Pressure Mean [Right Arm] 97 Blood Pressure Source Automatic Cuff Blood Pressure Source [Right Arm] Automatic Cuff Blood Pressure Position Sitting 02 Sat by Pulse Oximetry 97 97 Oxygen Delivery Method Room Air Room Air Lab Data Lab results reviewed: Yes I reviewed the patient's lab results. Lab Results 02/16/25 18:20: Urine Color Yellow, Urine Appearance Clear, Urine pH 7.0, Ur Specific [place] 1.015, Urine Protein Negative, Urine Glucose (UA) Trace, Urine Ketones Negative, Urine Blood Negative, Urine Nitrate Negative, Urine Bilirubin Negative, Urine Urobilinogen 0.2, Ur Leukocyte Esterase Negative, Urine RBC None, Urine WBC Occasional, Ur Squamous Epith Cells None, Urine Bacteria Trace Orders (Tests/Meds): ORDERS Category Date Time Status Urinalysis and Microscopic Stat Lab 02/16/25 18:20 Completed Urine Culture Stat Micro 02/16/25 18:20 Received Medical Decision Narrative: Patient is a 49-year-old male with no significant past medical history who presents to the emergency department with difficulties urinating. On arrival, patient was hemodynamically stable with unremarkable vital signs. Differential includes but not limited to: Urinary tract infection, urinary obstruction, nephrolithiasis, BPH, amongst others. Patient was seen here in the emergency department on 02/12 by myself and patient had no urinary obstruction or other acute intra-abdominal pathology at that time. Patient was sent with oral antibiotics for his urinary tract infection. Here, bladder scan was performed which showed 450 in the bladder. Given patient's difficulties urinating, a Barber was placed and more than 700 UOP was removed. Patient did report improvement in his symptoms except for patient does report a pain in his penis specifically when he tries to pee. Patient was already sent with [facility] as well for his symptoms. At this time given that patient already has a urology appointment scheduled on Thursday I felt that was appropriate to have the patient maintain his Barber catheter until he follows up with urology. Urine sample was sent here in the emergency department but further imaging or labs were not felt to be indicated at this time. Patient was otherwise discharged home in stable condition. Critical Care Critical Care Time Critical Care Time: No
[2025-02-16 19:50] VITALS: BP 152/87; PULSE 84; RESP 18; TEMP 36.9; O2SAT 95
== END 2025-02-16 19:51 | disposition home or self-care (01) ==
PROVIDERS: Emergency Provider Student in an Organized Health Care Education/Training Program; PCP Nurse Practitioner Family
DX: R30.0 Dysuria (principal); R39.12 Poor urinary stream
CPT/HCPCS: 51702; 81001; 87086; 99283

== ENCOUNTER 2025-02-24 09:43 | Day surgery (SDC) | payer MEDICARE, BC, SELFPAY ==
[2025-02-23 17:00] VITALS: BMI 52.2
[2025-02-24 09:56] VITALS: BP 133/100; PULSE 78; RESP 20; TEMP 36.3; O2SAT 98; BMI 52.2
[2025-02-24] MEDS: 0.9 % SODIUM CHLORIDE 500 ML 25 ML IV (10:40)
[2025-02-24] MEDS: LIDOCAINE 2% UROJET 10ML 10 ML (10:40)
[2025-02-24 10:47] VITALS: BP 124/67; PULSE 73; RESP 18; TEMP 36.1; O2SAT 98
--- NOTE | 2025-02-24 10:48 | HMH.PROCNOTE ---
[facility] Procedure Note Date: 02/24/25 Time: 10:48 Procedure Note:: Chart review: Patient comes in urinary retention. Patient has an indwelling Barber catheter. He recently underwent right groin surgery and a catheter was inserted because he has enuresis. The surgeon needed the wound to heal which it has now. He is diabetic. He has been on Flomax. Before the catheter was inserted he had 800 cc in the bladder. He was complaining of back pain. He needs to be given another voiding trial. Pre-Op diagnosis: Urinary retention Postop diagnosis: Urinary retention; Carlyn balanitis Operative note: The patient was brought to the cystoscopy suite. Examination shows the patient has acute balanitis. His indwelling Barber catheter was removed. He underwent flexible cystoscopy with 2% Xylocaine jelly. The anterior urethra shows some urethral inflammatory changes from the Barber foreign body. From the verumontanum the patient basically has no prostatic obstruction. Behind the trigone that patient has inflammatory and edematous bladder changes from the Barber catheter balloon. The bladder seems to hold about 250 cc. Patient had sensation and a feeling of need to urinate but could not. A Barber catheter was reinserted. I am going to give him another voiding trial.
[2025-02-25 12:12] LABS: POC Glucose,Bedside 157 (70-110)
== END 2025-02-24 11:10 | disposition home or self-care (01) ==
PROVIDERS: PCP Nurse Practitioner Family; Visit Provider Urology
PROC: 0TJB8ZZ Inspection of Bladder, Via Natural or Artificial Opening Endoscopic (ICD-10-PCS; CPT 52000; principal; 2025-02-24 10:45)
DX: T83.511A Infection and inflammatory reaction due to indwelling urethral catheter, initial encounter (principal); N34.2 Other urethritis; N30.90 Cystitis, unspecified without hematuria; B37.42 Candidal balanitis; E66.01 Morbid (severe) obesity due to excess calories; E11.9 Type 2 diabetes mellitus without complications; E78.5 Hyperlipidemia, unspecified; Z79.84 Long term (current) use of oral hypoglycemic drugs; Z79.4 Long term (current) use of insulin; Z98.84 Bariatric surgery status; Z79.899 Other long term (current) drug therapy; Z68.45 Body mass index [BMI] 70 or greater, adult; Z79.85 Long-term (current) use of injectable non-insulin antidiabetic drugs; Z16.24 Resistance to multiple antibiotics; Y73.1 Therapeutic (nonsurgical) and rehabilitative gastroenterology and urology devices associated with adverse incidents
CPT/HCPCS: 52000; 82962; J7040

== ENCOUNTER 2025-03-01 15:45 | Outpatient (CLI) | payer MEDICARE, BC, SELFPAY ==
--- OUTSIDE RECORDS SUMMARY | 2025-01-10 12:00 | XMS_ITS | Encounter Summary ---
Author Organization Healthcare Address [address] [id number] Care Team Providers Care Audit Clerks Supervisor Name Role Phone Malcolm Hayward MANUFACTURING INSPECTOR Primary Care Provider [phone] Reason for Visit * Reason Comments Follow-up Encounter Details Date Type Department Care Team (Late st Contact Info) Description 01/10/2025 12:00 PM EDT Office Visit [facility] [address], 1st [place] [address] Abigail King APRN [address] [place] [address] Dermatitis associated with moisture (Primary [...] any time in the past 12 m [facility], were you homeless or living in a longterm (including now)? No 12/16/2024 Utilities Answer Date [...] Gonzalo Yehuda Russell Dear Malcolm Hayward APRN, [facility] Gonzalo Russell is a 49 y.o. year [...] and Plan 1. Dermatitis associated with moisture -Mfractjm-Vajnsl-Cbrwocz Alc (A/D EMOLLIENT) cream- Apply 1 Application [...] absolutely necessary because of the distance to [place]. He will call us if any changes. Abigail King APRN [1] Past Medical History: Diagnosis Date Alcohol abuse, in remission Alcohol abuse, in remission Anxiety disorder, unspecified Anxiety Atrial fibrillation ([facility]/HCC) CHF (congestive heart failure) ([facility]) Hyperlipidemia Hypertension Personal history of [...] 6 hours as needed for pain. Under [place] law, monthly prescriptions (30 days) can be [...] by mouth 3 times a day. HYDROcodone-acetaminophen ([place]) 10-325 MG tablet Take 1 tablet by [...] capsule Take 1 capsule by mouth daily. Hrmkgboy-Ostori-Qmnvdwt Alc (A/D EMOLLIENT) cream Apply 1 Application [...] Description 03/21/2025 2:40 PM EDT Office Visit [facility] [place] [address] [place] [address] Laureano Jensen MD [address] [place] [address] 03/29/2025 2:20 PM EDT [facility] [address] [place] [address] Pratibha Forde PA [address] [facility] [address] [place] [address] documented as of this encounter Visit Diagnoses [...] documented as of this encounter Care Teams Audit Clerks Supervisor Relationship Specialty Start Date End Date Malcolm Hayward APRN [address] [place] [address] PCP - General 09/21/23 documented as of this encounter
--- OUTSIDE RECORDS SUMMARY | 2025-02-15 20:00 | XMS_ITS | Clinical Summary ---
Author Organization [facility] Address [address] [place] [phone] Phone Care Team Providers Care Woven Wood Shade Assembler Name Role Phone POONAMSARI Mensah Unavailable Unavailable SILVINA OT, PINKY Unavailable Unavailable MELVIN RN, MEÑO Unavailable Unavailable EMI PT, KAN Unavailable Unavailable Payers Payer Name Policy Type Policy Number Effective Date Expira tion Date MEDICARE PD [id number] Problems Condition Name Condition Details Condition Category [...] OF NICOTINE DEPENDENCE Active 12-22 00:00: 00 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) USE OF ORAL HYPOGLYCEMIC DRUGS Active 12-22 00:00: 00 SENIOR CARE (CURRENT) USE OF INSULIN Active 12-22 00:00: 00 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) USE OF ANTICOAGULAN TS Active [...] 325 mg tablet 12-22 00:00: 00 Yes [id number] PAIN 2 tablet EVERY 6 HOURS 2 tablet EVERY 6 HOURS (route: oral) Med Classific ation: Analgesic , Anti-infl ammatory or Antipyret ic atorvastati n 40 mg tablet 12-22 00:00: 00 Yes [id number] CHOLESTEROL 1 tablet DAILY 1 tablet DAILY (route: oral) Med Classific ation: Cardiovas cular Therapy Agents Bactrim DS 800 mg-160 mg tablet 12-22 00:00: 00 12-27 23:59 :00 No [id number] INFECTION 2 tablet 2 TIMES DAILY 2 tablet 2 TIMES DAILY (route: oral) Med Classific ation: Anti-Infe ctive Agents bisoprolol fumarate 5 mg tablet 12-22 00:00: 00 Yes [id number] HTN 1 tablet 2 TIMES DAILY 1 tablet 2 TIMES DAILY (route: oral) Med Classific ation: Cardiovas cular Therapy Agents diltiazem 120 mg tablet 12-22 00:00: 00 Yes [id number] HYPERTENSIO N 1 tablet DAILY 1 tablet DAILY (route: oral) Med Classific ation: Cardiovas cular Therapy Agents gabapentin 600 mg tablet 12-22 00:00: 00 Yes [id number] PAIN 1 tablet 3 TIMES DAILY 1 tablet 3 TIMES DAILY (route: oral) Med Classific ation: Central Nervous System Agents lorazepam 1 mg tablet 12-22 00:00: 00 Yes [id number] ANXIETY 1 tablet DAILY 1 tablet DAILY (route: oral) Med Classific ation: Central Nervous System Agents metformin 1,000 mg tablet 12-22 00:00: 00 Yes [id number] DM2 1 tablet 2 TIMES DAILY 1 tablet 2 TIMES DAILY (route: oral) Med Classific ation: Endocrine naloxone 4 mg/actuatio n nasal spray 12-22 00:00: 00 Yes [id number] NARCOTIC OVERDOSE 1 spray DIRECTED 1 spray DIRECTED (route: nasal) Med Classific ation: Antidotes and other Reversal Agents Novolog Mix 70-30 U-100 Insulin 100 unit/mL subcutaneou s solution 12-22 00:00: 00 Yes [id number] DM2 90 unit 3 TIMES DAILY 90 unit 3 TIMES DAILY (route: subcutaneo us) Med Classific ation: Endocrine omeprazole 40 mg capsule,del ayed release 12-22 00:00: 00 Yes [id number] GERD 1 capsule 2 TIMES DAILY 1 capsule 2 TIMES DAILY (route: oral) Med Classific ation: Gastroint estinal Therapy Agents ondansetron 4 mg disintegrat ing tablet 12-22 00:00: 00 Yes [id number] NAUSEA 1 tablet EVERY 6 HOURS 1 tablet EVERY 6 HOURS (route: oral) Med Classific ation: Gastroint estinal Therapy Agents oxycodone 5 mg tablet 12-22 00:00: 00 Yes [id number] SEVERE PAIN 1 tablet EVERY 6 HOURS 1 tablet EVERY 6 HOURS (route: oral) Med Classific ation: Analgesic , Anti-infl ammatory or Antipyret ic spironolact one 50 mg tablet 12-22 00:00: 00 Yes [id number] BLOOD PRESSURE 1 tablet DAILY 1 tablet DAILY (route: oral) Med Classific ation: Cardiovas cular Therapy Agents torsemide 20 mg tablet 12-22 00:00: 00 Yes [id number] FLUID OVERLOAD 1 tablet DAILY 1 tablet DAILY (route: oral) Med Classific ation: Cardiovas cular Therapy Agents trazodone 100 mg tablet 12-22 00:00: 00 Yes [id number] SLEEP 1 tablet EVERY PM 1 tablet EVERY PM (route: oral) Med Classific ation: Central Nervous System Agents venlafaxine ER 150 mg capsule,ext ended release 24 hr 12-22 00:00: 00 Yes [id number] DEPRESSION 1 capsule DAILY 1 capsule DAILY (route: oral) Med Classific ation: Central Nervous System Agents Ventolin HFA 90 mcg/actuati on aerosol inhaler 12-22 00:00: 00 Yes [id number] WHEEZING/ SOA 2 puff EVERY 6 HOURS 2 puff EVERY 6 HOURS (route: inhalation ) Med Classific ation: Respirato ry Therapy Agents Vraylar 3 mg capsule 12-22 00:00: 00 Yes [id number] DEPRESSION 1 capsule DAILY 1 capsule DAILY (route: oral) Med Classific ation: Central Nervous System Agents Xarelto 20 mg tablet 12-22 00:00: 00 Yes [id number] ANTICOAGULA NT 1 tablet DAILY 1 tablet DAILY (route: oral) Med Classific ation: Hematolog ical Agents nitrofurant oin 100 mg tablet 01-01 00:00: 00 01-08 23:59 :00 No [id number] ANTIBIOTIC 100 mg EVERY 12 HOURS 100 mg EVERY 12 HOURS (route: oral) Med Classific ation: Genitouri nary Therapy Bactrim DS 800 mg-160 mg tablet 01-12 00:00: 00 01-19 23:59 :00 No [id number] PROPHYLAXIS FOR RIGHT UPPER EXTREMITY WOUND INFECTION 1 tablet 2 TIMES DAILY 1 tablet 2 TIMES DAILY (route: oral) Med Classific ation: Anti-Infe ctive Agents Cavilon Durable Barrier 1.3 % topical cream 01-12 00:00: 00 Yes [id number] WOUND PROTECTANT Per instruc tions DAILY Per [...] 2024-12-22 12:14:00.000 79 mm [Hg] Plan of Care Planned Activity Planned Date Details Comments Future [...] MAY ACCEPT ORDERS FROM THE FOLLOWING PHYSICIANS: ] Future Scheduled Test CLINICIAN TO OBSERVE AND [...] EDUCATION AND RESOURCES NEEDED TO MAINTAIN HEALTH.] Reason for Visit MODERATE ASSIST WITH TRANSFER/AMBULATION/ADLS Encounters Start Date/Time End Date/Time Encounter Type Admission Type Attending [facility] Care Department Encounter ID 2024-12-22 00:00:00 2025-02-16 00:00:00 Unknown NEW ADMISSION PINKY COOL, KAN [facility] [id number]
--- OUTSIDE RECORDS SUMMARY | 2025-02-15 20:00 | XMS_ITS | Clinical Summary ---
Author Organization 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 Name Role Phone POONAMSARI Mensah Unavailable Unavailable SILVINA OT, PINKY Unavailable Unavailable MELVIN RN, MEÑO Unavailable Unavailable EMI PT, KAN Unavailable Unavailable Payers Payer Name Policy Type Policy Number Effective Date Expira tion Date MEDICARE PD [id number] Problems Condition Name Condition Details Condition Category [...] OF NICOTINE DEPENDENCE Active 12-22 00:00: 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 Active 12-22 00:00: 00 [facility] (CURRENT) USE OF INSULIN Active 12-22 00:00: 00 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 Active 12-22 [...] 325 mg tablet 12-22 00:00: 00 Yes [id number] PAIN 2 tablet EVERY 6 HOURS 2 tablet EVERY 6 HOURS (route: oral) Med Classific ation: Analgesic , Anti-infl ammatory or Antipyret ic atorvastati n 40 mg tablet 12-22 00:00: 00 Yes [id number] CHOLESTEROL 1 tablet DAILY 1 tablet DAILY (route: oral) Med Classific ation: Cardiovas cular Therapy Agents Bactrim DS 800 mg-160 mg tablet 12-22 00:00: 00 12-27 23:59 :00 No [id number] INFECTION 2 tablet 2 TIMES DAILY 2 tablet 2 TIMES DAILY (route: oral) Med Classific ation: Anti-Infe ctive Agents bisoprolol fumarate 5 mg tablet 12-22 00:00: 00 Yes [id number] HTN 1 tablet 2 TIMES DAILY 1 tablet 2 TIMES DAILY (route: oral) Med Classific ation: Cardiovas cular Therapy Agents diltiazem 120 mg tablet 12-22 00:00: 00 Yes [id number] HYPERTENSIO N 1 tablet DAILY 1 tablet DAILY (route: oral) Med Classific ation: Cardiovas cular Therapy Agents gabapentin 600 mg tablet 12-22 00:00: 00 Yes [id number] PAIN 1 tablet 3 TIMES DAILY 1 tablet 3 TIMES DAILY (route: oral) Med Classific ation: Central Nervous System Agents lorazepam 1 mg tablet 12-22 00:00: 00 Yes [id number] ANXIETY 1 tablet DAILY 1 tablet DAILY (route: oral) Med Classific ation: Central Nervous System Agents metformin 1,000 mg tablet 12-22 00:00: 00 Yes [id number] DM2 1 tablet 2 TIMES DAILY 1 tablet 2 TIMES DAILY (route: oral) Med Classific ation: Endocrine naloxone 4 mg/actuatio n nasal spray 12-22 00:00: 00 Yes [id number] NARCOTIC OVERDOSE 1 spray DIRECTED 1 spray DIRECTED (route: nasal) Med Classific ation: Antidotes and other Reversal Agents Novolog Mix 70-30 U-100 Insulin 100 unit/mL subcutaneou s solution 12-22 00:00: 00 Yes [id number] DM2 90 unit 3 TIMES DAILY 90 unit 3 TIMES DAILY (route: subcutaneo us) Med Classific ation: Endocrine omeprazole 40 mg capsule,del ayed release 12-22 00:00: 00 Yes [id number] GERD 1 capsule 2 TIMES DAILY 1 capsule 2 TIMES DAILY (route: oral) Med Classific ation: Gastroint estinal Therapy Agents ondansetron 4 mg disintegrat ing tablet 12-22 00:00: 00 Yes [id number] NAUSEA 1 tablet EVERY 6 HOURS 1 tablet EVERY 6 HOURS (route: oral) Med Classific ation: Gastroint estinal Therapy Agents oxycodone 5 mg tablet 12-22 00:00: 00 Yes [id number] SEVERE PAIN 1 tablet EVERY 6 HOURS 1 tablet EVERY 6 HOURS (route: oral) Med Classific ation: Analgesic , Anti-infl ammatory or Antipyret ic spironolact one 50 mg tablet 12-22 00:00: 00 Yes [id number] BLOOD PRESSURE 1 tablet DAILY 1 tablet DAILY (route: oral) Med Classific ation: Cardiovas cular Therapy Agents torsemide 20 mg tablet 12-22 00:00: 00 Yes [id number] FLUID OVERLOAD 1 tablet DAILY 1 tablet DAILY (route: oral) Med Classific ation: Cardiovas cular Therapy Agents trazodone 100 mg tablet 12-22 00:00: 00 Yes [id number] SLEEP 1 tablet EVERY PM 1 tablet EVERY PM (route: oral) Med Classific ation: Central Nervous System Agents venlafaxine ER 150 mg capsule,ext ended release 24 hr 12-22 00:00: 00 Yes [id number] DEPRESSION 1 capsule DAILY 1 capsule DAILY (route: oral) Med Classific ation: Central Nervous System Agents Ventolin HFA 90 mcg/actuati on aerosol inhaler 12-22 00:00: 00 Yes [id number] WHEEZING/ SOA 2 puff EVERY 6 HOURS 2 puff EVERY 6 HOURS (route: inhalation ) Med Classific ation: Respirato ry Therapy Agents Vraylar 3 mg capsule 12-22 00:00: 00 Yes [id number] DEPRESSION 1 capsule DAILY 1 capsule DAILY (route: oral) Med Classific ation: Central Nervous System Agents Xarelto 20 mg tablet 12-22 00:00: 00 Yes [id number] ANTICOAGULA NT 1 tablet DAILY 1 tablet DAILY (route: oral) Med Classific ation: Hematolog ical Agents nitrofurant oin 100 mg tablet 01-01 00:00: 00 01-08 23:59 :00 No [id number] ANTIBIOTIC 100 mg EVERY 12 HOURS 100 mg EVERY 12 HOURS (route: oral) Med Classific ation: Genitouri nary Therapy Bactrim DS 800 mg-160 mg tablet 01-12 00:00: 00 01-19 23:59 :00 No [id number] PROPHYLAXIS FOR RIGHT UPPER EXTREMITY WOUND INFECTION 1 tablet 2 TIMES DAILY 1 tablet 2 TIMES DAILY (route: oral) Med Classific ation: Anti-Infe ctive Agents Cavilon Durable Barrier 1.3 % topical cream 01-12 00:00: 00 Yes [id number] WOUND PROTECTANT Per instruc tions DAILY Per [...] End Date/Time Encounter Type Admission Type [facility]ending [facility] Care Department Encounter ID [id number] 00:00:00 2025-02-16 00:00:00 Unknown NEW ADMISSION PINKY COOL, KAN [facility] [id number]
[2025-03-01 21:18] LABS: Albumin Level 4.4 g/dl (3.5-5.0); Chloride 91 mmol/L (98-107); Sodium 137 mmol/L (136-145)
[2025-03-01 21:19] LABS: Potassium 3.8 mmoL/L (3.5-5.1)
[2025-03-01 21:21] LABS: Alanine Aminotransferase 19 U/L (12-78); Albumin/Globulin Ratio 1.2 (1.1-1.8); Alkaline Phosphatase 78 U/L (38-126); Anion Gap 16.8 mEq/L (5-15); Aspartate Amino Transferase 23 U/L (17-59); Bilirubin,Total 0.8 mg/dl (0.2-1.3); Blood Urea Nitrogen 19 mg/dl (9-20); Carbon Dioxide 33 mmol/L (22.0-30.0); Creatinine,Serum 0.80 mg/dl (0.66-1.25); Estimated Glomerular Filt Rate 104 ml/min (>60); GFR (African American) 125 ML/MIN (>60); Globulin 3.7 g/dL (1.3-3.2); Total Protein,Serum 8.1 g/dl (6.3-8.2)
[2025-03-01 21:22] LABS: Calcium 9.4 mg/dl (8.4-10.2); Glucose 204 mg/dl (74-100)
--- OUTSIDE RECORDS SUMMARY | 2025-03-02 10:53 | XMS_ITS | Encounter Summary ---
Author Organization Healthcare Address [address] [id number] Care Team Providers Care Sports Development Officer Name Role Phone Malcolm Hayward ADALGISA Primary Care Provider [phone] Encounter Details Date Type Department Care Team (Late st Contact Info) Description 01/02/2025 Telephone [facility] [address], [address] [place] [phone] Juliana Guzmán RN CH-PAV A 7 T2 [...] were you homeless or living in a fci (including now)? No 12/16/2024 Utilities Answer Date Recorded In the past 12 months has th e Ideatory, gas, oil, or water company threatened to [...] 03/21/2025 2:40 PM EDT Office Visit [facility] [place] [address] [place] [address] Laureano Jensen MD [address] [place] [address] 03/29/2025 2:20 PM EDT Office Visit [facility] [address] [place] [address] Pratibha Forde PA [address] [place] [address] documented as of this encounter [...] documented as of this encounter Care Teams Sports Development Officer Relationship Specialty Start Date End Date Malcolm Hayward APRN [address] [place] [address] PCP - General 09/21/23 documented as of this encounter
--- OUTSIDE RECORDS SUMMARY | 2025-03-02 10:53 | XMS_ITS | Encounter Summary ---
Author Organization [facility] Address [address] [id number] Care Team Providers Care Newspaper Managing Editor Name Role Phone Malcolm Hayward APRN Primary Care Provider [phone] Encounter Details Date Type Department Care Team [...] any time in the past 12 m [facility], were you homeless or living in [...] Description 03/21/2025 2:40 PM EDT Office Visit [facility] [place] [address] [facility]. [address] [place] [address] Laureano Jensen MD [address] [place] [address] 03/29/2025 2:20 PM EDT Office Visit [facility] Endocrinology [address] [place] [address] Pratibha Forde PA [address] [facility] [address] [place] [address] documented as of this encounter [...] documented as of this encounter Care Teams Newspaper Managing Editor Relationship Specialty Start Date End Date Malclom Hayward APRN [address] [place] [address] PCP - General 09/21/23 documented as of this encounter
--- OUTSIDE RECORDS SUMMARY | 2025-03-02 10:53 | XMS_ITS | Encounter Summary ---
Author Organization [facility] Address [address] [id number] Care Team Providers Care Gynaecological Oncologist Name Role Phone Malcolm Hayward IT HELP DESK TECHNICIAN Primary Care Provider [phone] Reason for Visit * Reason Comments Med Refill Encounter Details Date Type Department Care Team (Late st Contact Info) Description 12/02/2024 Refill [facility] Endocrinology [address] [place] [address] Divine Archer, IT HELP DESK TECHNICIAN [address] [facility] [address] [place] [address] Social History Tobacco Use Types [...] Description 03/21/2025 2:40 PM EDT Office Visit [facility] [place] [address] [place] [address] Laureano Jensen MD [address] [place] [address] 03/29/2025 2:20 PM EDT Office Visit [facility] Endocrinology [address] [place] [address] Pratibha Forde PA [address] [address] documented as of this encounter [...] documented as of this encounter Care Teams Gynaecological Oncologist Relationship Specialty Start Date End Date Malcolm Hayward APRN [address] [place] [address] PCP - General 09/21/23 documented as of this encounter
--- OUTSIDE RECORDS SUMMARY | 2025-03-02 10:53 | XMS_ITS | Encounter Summary ---
Author Organization Healthcare Address [address] [place] [address] Care Team Providers Care Beaver Trapper Name Role Phone Malcolm Hayward ADALGISA Primary Care Provider [phone] Reason for Visit * Reason Onset Date Comments Med Refill 01/02/2025 Encounter Details Date Type Department Care Team (Late st Contact Info) Description 01/02/2025 [facility]ill [facility] [address], 1[address] [place] [address] Rachael Berrios APRN [address] [place] [address] Social History Tobacco Use Types [...] time in the past 12 m [facility], were you homeless or living in a [place] (including now)? No 12/16/2024 Utilities Answer Date [...] Description 03/21/2025 2:40 PM EDT Office Visit [facility] [place] [address] [facility]. [address] [place] [address] Laureano Jensen MD [address] [place] [address] 03/29/2025 2:20 PM EDT Office Visit [facility] Endocrinology [address] [place] [phone] rPatibha Forde PA [address] [place] [address] documented as of this encounter [...] documented as of this encounter Care Teams Beaver Trapper Relationship Specialty Start Date End Date Malcolm Hayward APRN [address] [phone] PCP - General 09/21/23 documented as of this encounter
--- OUTSIDE RECORDS SUMMARY | 2025-03-02 10:53 | XMS_ITS | Encounter Summary ---
Author Organization Healthcare Address [address] [id number] Care Team Providers Care Watch And Clock Maker And Repairer Name Role Phone Malcolm Hayward ADALGISA Primary Care Provider [phone] Reason for Visit * Reason Onset Date Comments Med Refill 02/27/2025 Encounter Details Date Type Department Care Team (Late st Contact Info) Description 02/27/2025 Refill [facility] Endocrinology [address] [place] [address] Iveth Hurd Social History Tobacco Use Types Packs/Day Years [...] any time in the past 12 m [facility], were you homeless or living [...] Description 03/21/2025 2:40 PM EDT Office Visit [facility] [place] [address] [place] [address] Laureano Jensen MD [address] [place] [address] 03/29/2025 2:20 PM EDT Office Visit [facility] Endocrinology [address] [place] [address] Pratibha Forde PA [address] [place] [address] documented as of this encounter Visit Diagnoses [...] documented as of this encounter Care Teams Watch And Clock Maker And Repairer Relationship Specialty Start Date End Date Malcolm Hayward APRN [address] [place] [address] PCP - General 09/21/23 documented as of this encounter
--- OUTSIDE RECORDS SUMMARY | 2025-03-02 10:53 | XMS_ITS | Encounter Summary ---
Author Organization Healthcare Address [address] [id number] Care Team Providers Care Drafter Automotive Design Name Role Phone Malcolm Hayward ROLL COVERER Primary Care Provider [phone] Encounter Details Date Type Department Care Team (Late st Contact Info) Description 02/27/20[facility] [address] [place] [address] Divine Archer, ROLL COVERER [address] [facility] [address] [place] [address] Social History Tobacco Use Types [...] any time in the past 12 m [facility], were you homeless or living in a [...] encounter Miscellaneous Notes * Telephone Encounter - Iveth Hurd - 02/27/2025 2:40 PM EDT Returned pt's call. Sent pen needles to pt's preferred pharmacy with note: pt must attend 03/29/25 appointment for further refills. documented in this encounter Plan of Treatment Upcoming Encounters Date Type Department Care Team (Late st Contact Info) Description 03/21/2025 2:40 PM EDT Office Visit [facility] [place] [address] [place] [address] Laureano Jensen MD [address] [place] [address] 03/29/2025 2:20 PM EDT Office Visit [facility] Endocrinology [address] [place] [address] Pratibha Forde PA [address] [facility] [address] [place] [address] documented as of this encounter [...] documented as of this encounter Care Teams Drafter Automotive Design Relationship Specialty Start Date End Date Malcolm Hayward APRN [address] [place] [address] PCP - General 09/21/23 documented as of this encounter
--- OUTSIDE RECORDS SUMMARY | 2025-03-02 10:53 | XMS_ITS | Encounter Summary ---
Author Organization Healthcare Address [address] [id number] Care Team Providers Care Material Yard Clerk Name Role Phone Malcolm Hayward OCCASIONAL BABYSITTER Primary Care Provider [phone] Reason for Visit * Reason Comments Med Refill Encounter Details Date Type Department Care Team (Late st Contact Info) Description 12/31/2023 Refill [facility] [address] [place] [address] Earline Loaiza, OCCASIONAL BABYSITTER [address] [facility] [address] [place] [address] Type 2 diabetes mellitus (CMS/HCC) [...] Description 03/21/2025 2:40 PM EDT Office Visit [facility] [place] [address] [place] [address] Laureano Jensen MD [address] [place] [address] 03/29/2025 2:20 PM EDT Office Visit [facility] Endocrinology [address] [place] [address] Pratibha Forde PA [address] [facility] [address] [place] [address] documented as of this encounter [...] as of this encounter Care Teams Material Yard Clerk Relationship Specialty Start Date End Date Malcolm Hayward APRN [address] [place] [address] PCP - General 09/21/23 documented as of this encounter
--- OUTSIDE RECORDS SUMMARY | 2025-03-02 10:53 | XMS_ITS | Clinical Summary ---
Author Organization [facility] Address [address] [place] [address] Care Team Providers Care Furnace Maintenance Name Role Phone Malcolm Hayward ADALGISA Primary [...] mouth daily. 30 packet 12/18/19 25 Active HYDROcodone-aceta minophen (Calvert) 10-325 MG tablet Take 1 tablet by mouth every 6 hours as needed. Active Ostomy Supplies (stomahesive) powder powderIndications :Dermatitis associated with moisture Apply 1 Application topically as needed (as needed). May apply powder over washed areas, and on top of protectant cream. May be mixed together for application. 28.3 g 3 01/11/20 25 Active insulin NPH-insulin regular (NovoLIN 70/30 FlexPen) (70-30) 100 UNIT/ML injection pen Inject 90 Units under the skin 3 times a day before meals. FURTHER REFILLS WILL BE PROVIDED UPON ATTENDANCE OF NEXT OFFICE VISIT 03/29/25 90 mL 02/23/20 25 Active Insulin Pen Needle (Pen Guy) 31G X 5 MM [facility] USE TO INJECT INSULIN 3 TIMES PER DAY 100 each 1 02/28/20 25 Active insulin NPH-insulin regular (NovoLIN 70/30 FlexPen) (70-30) 100 UNIT/ML injection pen Inject 90 Units under the skin 3 times a day before meals. 15 mL 3 12/18/19 25 025 Discontin ued(Reord er) Active Problems Problem Noted Date Diagnosed Date [...] Encounters Date Type Department Care Team Description 02/27/2025 [facility] [address] [place] [address] Iveth Hurd 02/27/2025 Telephone [facility] Endocrinology [address] [place] [address] Divine Archer P, IRRIGATION EQUIPMENT REMOVER 02/21/2025 Refill [facility] Endocrinology [address] [place] [address] Pratibha Forde, PA 01/10/2025 12:00 PM EDT Office Visit [facility] General Surgery [address], [address] [place] [address] Abigail King E, IRRIGATION EQUIPMENT REMOVER Dermatitis associated with moisture (Primary Dx); Boil of trunk 01/10/2025 Travel 01/02/2025 Telephone [facility] General Surgery [address] [place] [address] Juliana Guzmán, RN 01/02/2025 Refill [facility] General Surgery [address] [place] [address] Rachael Berrios, IRRIGATION EQUIPMENT REMOVER 12/21/2024 Telephone [facility] Urology [address] [place] [address] Ana Huddleston ILOLA 12/19/2024 Telephone [facility] General Surgery [address], [address] [place] [address] Juliana Guzmán RN 12/19/2024 Refill [facility] General Surgery [address], [address] [place] [address] Rachael Berrios APRN 12/12/2024 10:28 PM EDT - 12/17/2024 1:17 PM EDT Hospital Encounter [facility] 9 T2 [address] [place] [phone] Nicole Casas MD Griffen, MD Ailyn Thompson, Rian Black MD Abscess of groin, right (Primary Dx); Urge incontinence; Urinary retention; Acute kidney injury ([facility]) Discharge Disposition: Home or Self Care 12/12/2024 Travel 12/09/2024 Orders Only External Location [address] [place] [address] Provider, External 12/09/2024 Refill [facility] Endocrinology [address] [place] [address] Divine Archer, IRRIGATION EQUIPMENT REMOVER Type 2 diabetes mellitus with hyperglycemia, with long-term current use of insulin ([facility]) 12/02/2024 Refill [facility] Endocrinology [address] [place] [address] Divine Archer, IRRIGATION EQUIPMENT REMOVER from Last 3 Months Immunizations Immunization Administration [...] any time in the past 12 m [facility] [place], were you homeless or living in a [place] health care facility (including now)? No 12/16/2024 Utilities Answer Date Recorded In the past 12 months has th e [employer], gas, oil, or water company threatened to [...] Description 03/21/2025 2:40 PM EDT Office Visit [facility] [place] [facility] [address] [place] [address] Laureano Jensen MD [address] [place] [address] 03/29/2025 2:20 PM EDT Office Visit [facility] [address] [place] [address] Pratibha Forde PA [address] [place] [address] Health Maintenance Due Date Last Done Comments [facility]-HIV Screening 1977 [facility]-Hepatitis C Screening 1977 [facility]-Medicare Annual Wellness (AWV) 1977 [facility]-/Child/Adol SDOH Screenings 1977 Diabetes: Dental Exam 1987 [facility]-DTaP,Tdap,and Td Vaccines (1 - Tdap) 1996 [facility]-Hepatitis B Vaccines (1 of 3 - 19+ 3-dose series) 1996 CT Colonography 2022 Colonoscopy 2022 FIT-DNA 2022 FIT 2022 FOBT 2022 Sigmoidoscopy 2022 [facility]-Colorectal Cancer Screening 2022 [id number] Vaccine (3 - season) 2024 02/22/2021, 01/25/2021 [facility]-Diabetes: Hemoglobin A1C 03/13/202508/2024, 01/13/2024, 12/24/2022, Additional history exists [facility]-Influenza Vaccine (#1) 2025 [facility]- SDOH Screenings 06/17/2025 [facility]-Adult SDOH Screenings 06/17/2025 12/16/2024 [facility]-Depression Screening 09/13/2025 09/13/2024, 10/2024 [facility]-Pneumococcal Vaccine: Pediatrics (0 to 5 Years) [...] 12:50 AM EDT Abscess of groin, right [place] DRAIN SKIN ABSCESS COMPLIC Routine 12/13/2024 12:50 [...] of26 resultswithin the time period is included. [facility] POCT Glucose 193(H) 74 - 99 [...] Comment 12/17/2024 7:58 AM EDT [facility] Thin Film Technician ID Geo Gonzalez 025 7:58 AM EDT HEALTHCARE LAB Device ID [id number] 12/17/2024 7:58 AM EDT [facility]ALTH[facility]ARE [facility] Specimen Type POC Capillary 12/17/2024 7:58 AM EDT [facility] Blood Capillary blood specimen / Unknown 12/17/2024 7:56 AM EDT 12/17/2024 7:58 AM EDT Rian Robertson MD LAB POINT OF CARE TE ST DOCKED DEVICE UNSOLICITED RESULTS Final Result Performing Organization Address City/State/[facility] Co de Phone Number HEALTHCARE LAB [address] [place] [address] * Methicillin Resistant Staphylococcus aureus (MRSA) by PCR (12/16/2024 11:17 AM EDT) [facility] Methicillin Resistant Staphylococcus aureus (MRSA) by PCR Not Detected Not Detected 12/16/2024 5:31 PM EDT [facility] Swab Both anterior nares / Unknown Non-blood Collection / Unknown 12/16/2024 11:17 AM EDT 12/16/2024 3:23 PM EDT Narrative [facility] - 12/16/2024 5:31 PM [...] LAB MICROBIOLOGY - GENERAL ORDERABLES Final Result [facility] [address] [place] [address] * (ABNORMAL) CBC W/O Differential (12/16/2024 1:43 AM EDT) Only the most recent of4 resultswithin the time period is included. WBC Count 4.08 3.70 - 10.30 10*3/uL LAB HEMATOLOGY METHOD 12/16/2024 2:10 AM EDT [facility] RBC Count 3.89(L) 4.60 - 6.10 10*6/uL LAB HEMATOLOGY METHOD 12/16/2024 2:10 AM EDT [facility] HGB 9.9(L) 13.7 - 17.5 g/dL LAB HEMATOLOGY METHOD 12/16/2024 2:10 AM EDT [facility] HCT 32.5(L) 40.0 - 51.0 % LAB HEMATOLOGY METHOD 12/16/2024 2:10 AM EDT [facility] Platelet Count 207 155 - 369 10*3/uL LAB HEMATOLOGY METHOD 12/16/2024 2:10 AM EDT [facility] MCV 84 79 - 98 fL LAB HEMATOLOGY METHOD 12/16/2024 2:10 AM EDT [facility] MCH 25.4(L) 26.0 - 32.0 pg LAB HEMATOLOGY METHOD 12/16/2024 2:10 AM EDT [facility] MCHC 30.5(L) 30.7 - 35.5 g/dL LAB HEMATOLOGY METHOD 12/16/2024 2:10 AM EDT [facility] RDW 17.0(H) 11.5 - 14.5 % LAB HEMATOLOGY METHOD 12/16/2024 2:10 AM EDT [facility] MPV 9.4 8.8 - 12.5 fL LAB HEMATOLOGY METHOD 12/16/2024 2:10 AM EDT [facility] nRBC 0.0 <=0.0 per 100 WBCs LAB HEMATOLOGY METHOD 12/16/2024 2:10 AM EDT [facility] Blood Venous blood specimen / Unknown Venipuncture / Unknown 12/16/2024 1:43 AM EDT 12/16/2024 1:59 AM EDT Leidy Hernandez MD LAB BLOOD ORDERABLES Final Result Performing Organization Address City/[facility]/ZIP Co de Phone Number [facility] [address] [place] [address] * (ABNORMAL) Magnesium (12/16/2024 1:43 AM EDT) Only the most recent of3 resultswithin the time period is included. Magnesium, Plasma 1.7(L) 1.9 - 2.4 mg/dL 12/16/2024 2:30 AM EDT [facility] Blood Venous blood specimen / Unknown Venipuncture / Unknown 12/16/2024 1:43 AM EDT 12/16/2024 1:58 AM EDT Leidy Hernandez MD LAB BLOOD ORDERABLES Final Result Performing Organization Address City/[facility]/ZIP Co de Phone Number [facility] [address] [place] [address] * (ABNORMAL) Renal function panel (12/16/2024 1:43 AM EDT) Only the most recent of2 resultswithin the time period is included. Glucose, Plasma 301(H) 74 - 99 mg/dL 12/16/2024 2:30 AM EDT [facility] BUN, Plasma 7 7 - 21 mg/dL 12/16/2024 2:30 AM EDT [facility] Creatinine, Plasma 0.62(L) 0.70 - 1.20 mg/dL 12/16/2024 2:30 AM EDT [facility] BUN/Creatinine Ratio 11 12/16/2024 2:30 AM EDT [facility] Sodium, Plasma 135(L) 136 - 145 mmol/L 12/16/2024 2:30 AM EDT [facility] Potassium, Plasma 3.7 3.6 - 4.9 mmol/L 12/16/2024 2:30 AM EDT [facility] Chloride, Plasma 97 97 - 107 mmol/L 12/16/2024 2:30 AM EDT [facility] CO2, Plasma 29 22 - 29 mmol/L 12/16/2024 2:30 AM EDT [facility] Anion Gap 9 6 - 16 mmol/L 12/16/2024 2:30 AM EDT [facility] Total Calcium, Plasma 8.9 8.9 - 10.2 mg/dL 12/16/2024 2:30 AM EDT [facility] Phosphorus, Plasma 2.7 2.5 - 4.5 mg/dL 12/16/2024 2:30 AM EDT [facility] Albumin, Plasma 2.7(L) 3.5 - 5.2 g/dL 12/16/2024 2:30 AM EDT [facility] eGFRcr 118.6 mL/min/1.7 3m*2 12/16/2024 2:30 AM EDT [facility] Comment:Reported eGFRcr in m L/min/1.73m2 is based the CKD-EPI 2020 equation that does not use a race coefficient. Blood Venous blood specimen / Unknown Venipuncture / Unknown 12/16/2024 1:43 AM EDT 12/16/2024 1:58 AM EDT us Leidy Hernandez MD LAB BLOOD ORDERABLES Final Result [facility] [address] [place] [address] * Phosphorus (12/15/2024 4:37 AM EDT) Only the most recent of2 resultswithin the time period is included. Phosphorus, Plasma 3.1 2.5 - 4.5 mg/dL 12/15/2024 7:02 AM EDT [facility] Blood Venous blood specimen / Unknown Venipuncture / Unknown 12/15/2024 4:37 AM EDT 12/15/2024 4:47 AM EDT us Leidy Hernandez MD LAB BLOOD ORDERABLES Final Result [facility] [address] [place] [address] * (ABNORMAL) Basic Metabolic Panel, Plasma (12/15/2024 4:37 AM EDT) Only the most recent of2 resultswithin the time period is included. Glucose, Plasma 199(H) 74 - 99 mg/dL 12/15/2024 7:02 AM EDT [facility] BUN, Plasma 6(L) 7 - 21 mg/dL 12/15/2024 7:02 AM EDT [facility] Creatinine, Plasma 0.59(L) 0.70 - 1.20 mg/dL 12/15/2024 7:02 AM EDT [facility] BUN/Creatinine Ratio 10 12/15/2024 7:02 AM EDT [facility] Sodium, Plasma 137 136 - 145 mmol/L 12/15/2024 7:02 AM EDT [facility] Potassium, Plasma 3.5(L) 3.6 - 4.9 mmol/L 12/15/2024 7:02 AM EDT [facility] Chloride, Plasma 96(L) 97 - 107 mmol/L 12/15/2024 7:02 AM EDT [facility] CO2, Plasma 29 22 - 29 mmol/L 12/15/2024 7:02 AM EDT [facility] Anion Gap 12 6 - 16 mmol/L 12/15/2024 7:02 AM EDT [facility] Total Calcium, Plasma 8.6(L) 8.9 - 10.2 mg/dL 12/15/2024 7:02 AM EDT [facility] eGFRcr 120.4 mL/min/1.7 3m*2 12/15/2024 7:02 AM EDT [facility] Comment:Reported eGFRcr in m L/min/1.73m2 is based the CKD-EPI 2020 equation that does not use a race coefficient. Blood Venous blood specimen / Unknown Venipuncture / Unknown 12/15/2024 4:37 AM EDT 12/15/2024 4:47 AM EDT us Leidy Hernandez MD LAB BLOOD ORDERABLES Final Result [facility] [address] [place] [address] * TN DRAIN SKIN ABSCESS COMPLIC, HC DRAIN SKIN [...] infection Alternatives discussed: No treatment and observation [place] protocol: Procedure explained and questions answered to [...] treatment: Drain placed Packing materials: Vessel loops ([place]; kerlix) Post-procedure details: Procedure completion: Tolerated well, no immediate complications Nicole Casas MD IN CLINIC/BEDSIDE ORDERAB LES Final Result * (ABNORMAL) Hemoglobin A1c (12/12/2024 11:46 PM EDT) Hemoglobin A1c 10.9(H) <5.7 % 12/13/2024 11:55 AM EDT [facility] Blood Venous blood specimen / Unknown Venipuncture / Unknown 12/12/2024 11:46 PM EDT 12/13/2024 12:06 AM EDT Narrative [facility] - 12/13/2024 11:55 AM EDT HA1C Interpretive Data: Diagnosis of Diabetes: Diabetic > or = 6.5% Pre-diabetic 5.7 to 6.4% Non-diabetic < or = 5.6% Glycemic Targets for Type I and Type II Diabetics: Non- Adults <7.0% Adults <6.0% Children and Adolescents <7.5% Source: Citizen Of [place] Diabetes Association. Standards of medical care in diabetes,2017. Diabetes Care.2017:40 (suppl 1):S1-S135. us Nicole Casas MD LAB BLOOD ORDERABLES Melba don Result [facility] [address] [place] [address] * US OUTSIDE IMAGES (12/09/2024 8:20 AM EDT) Anatomical Region Laterality Modality Ultrasound 12/09/2024 8:20 AM EDT us External Provider IMG US PROCEDURES Final Result from Last 3 Months Insurance [facility] [address] Advance Directives * Full Code (Latest Code Status on File) Date Activated Date Inactivated Comments 12/12/2024 11:07 PM 12/17/2024 3:22 PM Question Answer Comments I have reviewed the capacity from the link above and, if needed, have updated to appropriate status: Yes Care Teams Furnace Maintenance Relationship Specialty Start Date End Date Malcolm Hayward APRN [address] [place] [address] PCP - General 09/21/23
--- OUTSIDE RECORDS SUMMARY | 2025-03-02 10:53 | XMS_ITS | Encounter Summary ---
Author Organization Healthcare Address [address] [id number] Care Team Providers Care Truck Cleaner Name Role Phone Malcolm Hayward WOOD MILLING MACHINE TENDER Primary Care Provider [phone] Reason for Visit * Reason Comments Med Refill Encounter Details Date Type Department Care Team (Late st Contact Info) Description 07/07/2024 Refill [facility] [address] [place] [address] Mayra Torres PA [address] [address] Type 2 diabetes mellitus (CMS/HCC) [...] Description 03/21/2025 2:40 PM EDT Office Visit [facility] [place] [address] [place] [address] Laureano Jensen MD [address] [place] [address] 03/29/2025 2:20 PM EDT [facility] [address] [place] [address] Pratibha Forde PA [address] [address] documented as of this encounter [...] documented as of this encounter Care Teams Truck Cleaner Relationship Specialty Start Date End Date Malcolm Hayward APRN [address] [place] [address] PCP - General 09/21/23 documented as of this encounter
--- OUTSIDE RECORDS SUMMARY | 2025-03-02 10:53 | XMS_ITS | Encounter Summary ---
Author Organization Healthcare Address [address] [id number] Care Team Providers Care Staff Midwife Name Role Phone Malcolm Hayward ADALGISA Primary Care Provider [phone] Reason for Visit * Reason Onset Date Comments Med Refill 02/21/2025 Encounter Details Date Type Department Care Team (Late st Contact Info) Description 02/21/2025 Refill [facility] Endocrinology [address] [place] [address] Pratibha Forde, PA [address] [facility] [address] [place] [address] Social History Tobacco Use Types [...] encounter Miscellaneous Notes * Telephone Encounter - Mary Olmstead - 02/22/2025 8:07 AM EDT Refill request does not meet protocol. Sending to clinic for review. Additional info: Appointment compliance - Patient hasn't been seen in clinic in > 1.5 years. Please review for scheduling and if refills are appropriate. documented in this encounter Plan of Treatment Upcoming Encounters Date Type Department Care Team (Late st Contact Info) Description 03/21/2025 2:40 PM EDT Office Visit [facility] [place] [address] [place] [address] Laureano Jensen MD [address] [place] [address] 03/29/2025 2:20 PM EDT Office Visit [facility] Endocrinology [address] [place] [address] Pratibha Forde PA [address] [facility] [address] [place] [address] documented as of this encounter [...] documented as of this encounter Care Teams Staff Midwife Relationship Specialty Start Date End Date Malcolm Hayward APRN [address] [place] [address] PCP - General 09/21/23 documented as of this encounter
--- OUTSIDE RECORDS SUMMARY | 2025-03-02 10:54 | XMS_ITS | Clinical Summary ---
[facility] [address] [place] [address] Care Team Providers Care Laborer Pole Crew Name Role Phone Provider, No Known Primary [...] to complete this topic Insurance Care Teams Laborer Pole Crew Relationship Specialty Start Date End Date Provider, No Known [facility] [place] [place] [address] PCP - General 02/11/21
== END 2025-03-01 23:59 | disposition home or self-care (01) ==
LOC: LAB.DROPOF 03-02 10:50
PROVIDERS: PCP Family Medicine; Visit Provider Family Medicine
DX: N39.0 Urinary tract infection, site not specified (principal); I10 Essential (primary) hypertension; E11.65 Type 2 diabetes mellitus with hyperglycemia
CPT/HCPCS: 80053; 87086; 87088; 87186

== ENCOUNTER 2025-03-28 21:33 | Outpatient (CLI) | payer MEDICARE, BC, SELFPAY ==
--- OUTSIDE RECORDS SUMMARY | 2025-02-15 20:00 | XMS_ITS | Clinical Summary ---
Author Organization Unknown Care Team Providers Care Core Shaper Top Name Role Phone SHAIJORDANSARI Mensah Unavailable Unavailable SILVINA OT, PINKY Unavailable Unavailable MELVIN RN, MEÑO Unavailable Unavailable EMI PT, KAN Unavailable Unavailable Payers Payer Name Policy Type Policy Number Effective Date Expira tion Date MEDICARE PD [id number] Problems Condition Name Condition Details Condition Category [...] OF NICOTINE DEPENDENCE Active 12-22 00:00: 00 [facility] (CURRENT) USE OF ORAL HYPOGLYCEMIC DRUGS Active 12-22 00:00: 00 [employer] (CURRENT) USE OF INSULIN Active 12-22 00:00: 00 [employer] (CURRENT) USE OF ANTICOAGULAN TS Active 12-22 [...] 325 mg tablet 12-22 00:00: 00 Yes [id number] PAIN 2 tablet EVERY 6 HOURS 2 tablet EVERY 6 HOURS (route: oral) Med Classific ation: Analgesic , Anti-infl ammatory or Antipyret ic atorvastati n 40 mg tablet 12-22 00:00: 00 Yes [id number] CHOLESTEROL 1 tablet DAILY 1 tablet DAILY (route: oral) Med Classific ation: Cardiovas cular Therapy Agents Bactrim DS 800 mg-160 mg tablet 12-22 00:00: 00 12-27 23:59 :00 No [id number] INFECTION 2 tablet 2 TIMES DAILY 2 tablet 2 TIMES DAILY (route: oral) Med Classific ation: Anti-Infe ctive Agents bisoprolol fumarate 5 mg tablet 12-22 00:00: 00 Yes [id number] HTN 1 tablet 2 TIMES DAILY 1 tablet 2 TIMES DAILY (route: oral) Med Classific ation: Cardiovas cular Therapy Agents diltiazem 120 mg tablet 12-22 00:00: 00 Yes [id number] HYPERTENSIO N 1 tablet DAILY 1 tablet DAILY (route: oral) Med Classific ation: Cardiovas cular Therapy Agents gabapentin 600 mg tablet 12-22 00:00: 00 Yes [id number] PAIN 1 tablet 3 TIMES DAILY 1 tablet 3 TIMES DAILY (route: oral) Med Classific ation: Central Nervous System Agents lorazepam 1 mg tablet 12-22 00:00: 00 Yes [id number] ANXIETY 1 tablet DAILY 1 tablet DAILY (route: oral) Med Classific ation: Central Nervous System Agents metformin 1,000 mg tablet 12-22 00:00: 00 Yes [id number] DM2 1 tablet 2 TIMES DAILY 1 tablet 2 TIMES DAILY (route: oral) Med Classific ation: Endocrine naloxone 4 mg/actuatio n nasal spray 12-22 00:00: 00 Yes [id number] NARCOTIC OVERDOSE 1 spray DIRECTED 1 spray DIRECTED (route: nasal) Med Classific ation: Antidotes and other Reversal Agents Novolog Mix 70-30 U-100 Insulin 100 unit/mL subcutaneou s solution 12-22 00:00: 00 Yes [id number] DM2 90 unit 3 TIMES DAILY 90 unit 3 TIMES DAILY (route: subcutaneo us) Med Classific ation: Endocrine omeprazole 40 mg capsule,del ayed release 12-22 00:00: 00 Yes [id number] GERD 1 capsule 2 TIMES DAILY 1 capsule 2 TIMES DAILY (route: oral) Med Classific ation: Gastroint estinal Therapy Agents ondansetron 4 mg disintegrat ing tablet 12-22 00:00: 00 Yes [id number] NAUSEA 1 tablet EVERY 6 HOURS 1 tablet EVERY 6 HOURS (route: oral) Med Classific ation: Gastroint estinal Therapy Agents oxycodone 5 mg tablet 12-22 00:00: 00 Yes [id number] SEVERE PAIN 1 tablet EVERY 6 HOURS 1 tablet EVERY 6 HOURS (route: oral) Med Classific ation: Analgesic , Anti-infl ammatory or Antipyret ic spironolact one 50 mg tablet 12-22 00:00: 00 Yes [id number] BLOOD PRESSURE 1 tablet DAILY 1 tablet DAILY (route: oral) Med Classific ation: Cardiovas cular Therapy Agents torsemide 20 mg tablet 12-22 00:00: 00 Yes [id number] FLUID OVERLOAD 1 tablet DAILY 1 tablet DAILY (route: oral) Med Classific ation: Cardiovas cular Therapy Agents trazodone 100 mg tablet 12-22 00:00: 00 Yes [id number] SLEEP 1 tablet EVERY PM 1 tablet EVERY PM (route: oral) Med Classific ation: Central Nervous System Agents venlafaxine ER 150 mg capsule,ext ended release 24 hr 12-22 00:00: 00 Yes [id number] DEPRESSION 1 capsule DAILY 1 capsule DAILY (route: oral) Med Classific ation: Central Nervous System Agents Ventolin HFA 90 mcg/actuati on aerosol inhaler 12-22 00:00: 00 Yes [id number] WHEEZING/ SOA 2 puff EVERY 6 HOURS 2 puff EVERY 6 HOURS (route: inhalation ) Med Classific ation: Respirato ry Therapy Agents Vraylar 3 mg capsule 12-22 00:00: 00 Yes [id number] DEPRESSION 1 capsule DAILY 1 capsule DAILY (route: oral) Med Classific ation: Central Nervous System Agents Xarelto 20 mg tablet 12-22 00:00: 00 Yes [id number] ANTICOAGULA NT 1 tablet DAILY 1 tablet DAILY (route: oral) Med Classific ation: Hematolog ical Agents nitrofurant oin 100 mg tablet 01-01 00:00: 00 01-08:59 :00 No [id number] ANTIBIOTIC 100 mg EVERY 12 HOURS 100 mg EVERY 12 HOURS (route: oral) Med Classific ation: Genitouri nary Therapy Bactrim DS 800 mg-160 mg tablet 01-12 00:00: 00 01-19 23:59 :00 No [id number] PROPHYLAXIS FOR RIGHT UPPER EXTREMITY WOUND INFECTION 1 tablet 2 TIMES DAILY 1 tablet 2 TIMES DAILY (route: oral) Med Classific ation: Anti-Infe ctive Agents Cavilon Durable Barrier 1.3 % topical cream 01-12 00:00: 00 Yes [id number] WOUND PROTECTANT Per instruc tions DAILY Per [...] End Date/Time Encounter Type Admission Type Attending [facility] Care Department Encounter ID Discharge Date Discharge Status Discharge Condition Discharge Reason Percent Goals Met 2024-12-22 00:00:00 2025-02-16 00:00:00 Outpatient NEW ADMISSION MEÑO [facility]LES [facility] [id number] 00:00:00 DISCHARGE TO HOME OR SELF CARE MODERATE ASSIST WITH TRANSFER/A MBULATION/ ADLS PER CLIENT REQUEST 79.66
--- OUTSIDE RECORDS SUMMARY | 2025-02-15 20:00 | XMS_ITS | Clinical Summary ---
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) USE OF INSULIN Active 12-22 00:00: 00 SLEEP TECHNICIAN (CURRENT) USE OF ANTICOAGULAN TS Active 12-22 [...] 325 mg tablet 12-22 00:00: 00 Yes [id number] PAIN 2 tablet EVERY 6 HOURS 2 tablet EVERY 6 HOURS (route: oral) Med Classific ation: Analgesic , Anti-infl ammatory or Antipyret ic atorvastati n 40 mg tablet 12-22 00:00: 00 Yes [id number] CHOLESTEROL 1 tablet DAILY 1 tablet DAILY (route: oral) Med Classific ation: Cardiovas cular Therapy Agents Bactrim DS 800 mg-160 mg tablet 12-22 00:00: 00 12-27 23:59 :00 No [id number] INFECTION 2 tablet 2 TIMES DAILY 2 tablet 2 TIMES DAILY (route: oral) Med Classific ation: Anti-Infe ctive Agents bisoprolol fumarate 5 mg tablet 12-22 00:00: 00 Yes [id number] HTN 1 tablet 2 TIMES DAILY 1 tablet 2 TIMES DAILY (route: oral) Med Classific ation: Cardiovas cular Therapy Agents diltiazem 120 mg tablet 12-22 00:00: 00 Yes [id number] HYPERTENSIO N 1 tablet DAILY 1 tablet DAILY (route: oral) Med Classific ation: Cardiovas cular Therapy Agents gabapentin 600 mg tablet 12-22 00:00: 00 Yes [id number] PAIN 1 tablet 3 TIMES DAILY 1 tablet 3 TIMES DAILY (route: oral) Med Classific ation: Central Nervous System Agents lorazepam 1 mg tablet 12-22 00:00: 00 Yes [id number] ANXIETY 1 tablet DAILY 1 tablet DAILY (route: oral) Med Classific ation: Central Nervous System Agents metformin 1,000 mg tablet 12-22 00:00: 00 Yes [id number] DM2 1 tablet 2 TIMES DAILY 1 tablet 2 TIMES DAILY (route: oral) Med Classific ation: Endocrine naloxone 4 mg/actuatio n nasal spray 12-22 00:00: 00 Yes [id number] NARCOTIC OVERDOSE 1 spray DIRECTED 1 spray DIRECTED (route: nasal) Med Classific ation: Antidotes and other Reversal Agents Novolog Mix 70-30 U-100 Insulin 100 unit/mL subcutaneou s solution 12-22 00:00: 00 Yes [id number] DM2 90 unit 3 TIMES DAILY 90 unit 3 TIMES DAILY (route: subcutaneo us) Med Classific ation: Endocrine omeprazole 40 mg capsule,del ayed release 12-22 00:00: 00 Yes [id number] GERD 1 capsule 2 TIMES DAILY 1 capsule 2 TIMES DAILY (route: oral) Med Classific ation: Gastroint estinal Therapy Agents ondansetron 4 mg disintegrat ing tablet 12-22 00:00: 00 Yes [id number] NAUSEA 1 tablet EVERY 6 HOURS 1 tablet EVERY 6 HOURS (route: oral) Med Classific ation: Gastroint estinal Therapy Agents oxycodone 5 mg tablet 12-22 00:00: 00 Yes [id number] SEVERE PAIN 1 tablet EVERY 6 HOURS 1 tablet EVERY 6 HOURS (route: oral) Med Classific ation: Analgesic , Anti-infl ammatory or Antipyret ic spironolact one 50 mg tablet 12-22 00:00: 00 Yes [id number] BLOOD PRESSURE 1 tablet DAILY 1 tablet DAILY (route: oral) Med Classific ation: Cardiovas cular Therapy Agents torsemide 20 mg tablet 12-22 00:00: 00 Yes [id number] FLUID OVERLOAD 1 tablet DAILY 1 tablet DAILY (route: oral) Med Classific ation: Cardiovas cular Therapy Agents trazodone 100 mg tablet 12-22 00:00: 00 Yes [id number] SLEEP 1 tablet EVERY PM 1 tablet EVERY PM (route: oral) Med Classific ation: Central Nervous System Agents venlafaxine ER 150 mg capsule,ext ended release 24 hr 12-22 00:00: 00 Yes [id number] DEPRESSION 1 capsule DAILY 1 capsule DAILY (route: oral) Med Classific ation: Central Nervous System Agents Ventolin HFA 90 mcg/actuati on aerosol inhaler 12-22 00:00: 00 Yes [id number] WHEEZING/ SOA 2 puff EVERY 6 HOURS 2 puff EVERY 6 HOURS (route: inhalation ) Med Classific ation: Respirato ry Therapy Agents Vraylar 3 mg capsule 12-22 00:00: 00 Yes [id number] DEPRESSION 1 capsule DAILY 1 capsule DAILY (route: oral) Med Classific ation: Central Nervous System Agents Xarelto 20 mg tablet 12-22 00:00: 00 Yes [id number] ANTICOAGULA NT 1 tablet DAILY 1 tablet DAILY (route: oral) Med Classific ation: Hematolog ical Agents nitrofurant oin 100 mg tablet 01-01 00:00: 00 01-08:59 :00 No [id number] ANTIBIOTIC 100 mg EVERY 12 HOURS 100 mg EVERY 12 HOURS (route: oral) Med Classific ation: Genitouri nary Therapy Bactrim DS 800 mg-160 mg tablet 01-12 00:00: 00 01-19 23:59 :00 No [id number] PROPHYLAXIS FOR RIGHT UPPER EXTREMITY WOUND INFECTION 1 tablet 2 TIMES DAILY 1 tablet 2 TIMES DAILY (route: oral) Med Classific ation: Anti-Infe ctive Agents Cavilon Durable Barrier 1.3 % topical cream 01-12 00:00: 00 Yes [id number] WOUND PROTECTANT Per instruc tions DAILY Per [...] End Date/Time Encounter Type Admission Type Attending [facility] Care Department Encounter ID Discharge Date Discharge Status Discharge Condition Discharge Reason Percent Goals Met 2024-12-22 00:00:00 2025-02-16 00:00:00 Outpatient NEW ADMISSION MEÑO [facility] [id number] 8736-08-07 00:00:00 DISCHARGE TO HOME OR SELF CARE MODERATE ASSIST WITH TRANSFER/A MBULATION/ ADLS PER CLIENT REQUEST 79.66
--- OUTSIDE RECORDS SUMMARY | 2025-03-28 21:37 | XMS_ITS | Clinical Summary ---
[facility] [address] [place] [address] Care Team Providers Care Dinkey Engineer Name Role Phone Provider, No Known Primary [...] COVID-19 Vaccine ( - 2023-2 5 season) 2025 INFLUENZA VACCINE 04/12/2025 Pneumococcal Vaccine 0-49 Aged Out No longer eligible based on patient's age to complete this topic Insurance Care Teams Dinkey Engineer Relationship Specialty Start Date End Date Provider, No Known [facility] [address] PCP - General 02/11/21
--- OUTSIDE RECORDS SUMMARY | 2025-03-28 21:37 | XMS_ITS | Encounter Summary ---
Author Organization Healthcare Address [address] [id number] Care Team Providers Care Java Developer With Security Clearance Name Role Phone Malcolm Hayward CLINICAL AUDIOLOGIST Primary Care Provider [phone] Reason for Visit * Reason Comments Med Refill Encounter Details Date Type Department Care Team (Late st Contact Info) Description 07/07/2024 Refill [facility] [address] [place] [address] Mayra Torres PA [address] [address] Type 2 diabetes mellitus (CMS/HCC) [...] documented as of this encounter Care Teams Java Developer With Security Clearance Relationship Specialty Start Date End Date Malcolm Hayward APRN [address] [place] [address] PCP - General 09/21/23 documented as of this encounter
--- OUTSIDE RECORDS SUMMARY | 2025-03-28 21:37 | XMS_ITS | Encounter Summary ---
Author Organization Healthcare Address [address] [id number] Care Team Providers Care Assistant Womens Volleyball Coach Name Role Phone Malcolm Hayward KISS MACHINE OPERATOR Primary Care Provider [phone] Reason for Visit * Reason Comments Med Refill Encounter Details Date Type Department Care Team (Late st Contact Info) Description 12/31/2023 Refill [facility] [address] [place] [address] Earline Loaiza, KISS MACHINE OPERATOR 2[address] [facility] [address] [place] [address] Type 2 diabetes mellitus (CMS/HCC) [...] documented as of this encounter Care Teams Assistant Womens Volleyball Coach Relationship Specialty Start Date End Date Malcolm Hayward APRN [address] [place] [address] PCP - General 09/21/23 documented as of this encounter
--- OUTSIDE RECORDS SUMMARY | 2025-03-28 21:37 | XMS_ITS | Clinical Summary ---
Author Organization [facility] Address [address] [place] [address] Care Team Providers Care Surgical Physician Assistant Name Role Phone Malcolm Hayward ADALGISA Primary Care Provider [phone] Allergies No known active allergies Medications atorvastatin [...] 6 hours as needed for pain. Under [place] law, monthly prescriptions (30 days) can be refilled at 25 days and three-month prescriptions (90 days) at 80 days. Please contact the insurance company with questions if refills are denied. 100 tablet 12/18/19 25 Active polyethylene glycol (Miralax) 17 g packet Take 17 g by mouth daily. 30 packet 12/18/19 25 Active HYDROcodone-acetam inophen ([place]) 10-325 MG tablet Take 1 tablet by [...] 02/23/20 25 Active Insulin Pen Needle (Pen [place]) 31G X 5 MM [facility] USE TO INJECT INSULIN 3 TIMES PER DAY 100 each 1 02/28/20 Active Ozempic, 0.25 or 0.5 MG/DOSE, 2 MG/3ML solution pen-injector Inject 0.25 mg under the skin 1 time per week. 01/27/20 Active tamsulosin (Flomax) 0.4 MG 24 hr capsule Take 1 capsule by mouth daily. 02/21/20 Active Active Problems Problem Noted Date Diagnosed Date [...] Type Department Care Team Description 02/27/2025 Refill [place] [facility] Endocrinology [address] [place] [address] Iveth Hurd 02/27/2025 [facility] [address] [place] [address] Divine Archer APRN 02/21/2025 Refill [place] [facility] Endocrinology [address] [place] [address] Pratibha Forde PA 01/10/2025 12:00 PM EDT Office Visit [facility] General Surgery [address], [address] [place] [address] Abigail King, ELECTRICAL DESIGN TECHNOLOGIST Dermatitis associated with moisture (Primary Dx); Boil of trunk 01/10/2025 Travel 01/02/2025 Telephone [facility] General Surgery [address], [address] [place] [address] Juliana Guzmán, RN 01/02/2025 Refill [facility] General Surgery [address], [address] [place] [address] Rachael Berrios, ELECTRICAL DESIGN TECHNOLOGIST from Last 3 Months Immunizations Immunization Administration [...] in the past 12 m [facility], were you homeless or living in a long term (including now)? No 12/16/2024 Utilities Answer Date Recorded In the past 12 months has andrey e electric, gas, oil, or water company [...] 01/10/2025 11:58 AM EDT Plan of Treatment Health Maintenance Due Date [...] 2022 Sigmoidoscopy 2022 [facility]-Colorectal Cancer Screening 2022 [id number] Vaccine ( season) 2025 02/22/2021, 01/25/2021 [facility]-Diabetes: Hemoglobin A1C 03/13/202508/2024, 01/13/2024, [...] Procedure Name Priority Date/Time Associated Diagnosis Comments HEMOGLOBIN A1C Add-On 12/12/2024 11:46 PM EDT from Last 3 Months or Most Recently Relevant to Health Maintenance Results * (ABNORMAL) Hemoglobin A1c (12/12/2024 11:46 PM EDT) Hemoglobin A1c 10.9(H) <5.7 % 12/13/2024 11:55 AM EDT [facility] Blood Venous blood specimen / Unknown Venipuncture / Unknown 12/12/2024 11:46 PM EDT 12/13/2024 12:06 AM EDT Narrative [facility] - 12/13/2024 11:55 AM EDT HA1C Interpretive Data: Diagnosis of Diabetes: Diabetic > or = 6.5% Pre-diabetic 5.7 to 6.4% Non-diabetic < or = 5.6% Glycemic Targets for Type I and Type II Diabetics: Non- Adults <7.0% Adults <6.0% Children and Adolescents <7.5% Source: [place] Diabetes Association. Standards of medical care in diabetes,2017. Diabetes Care.2017:40 (suppl 1):S1-S135. Nicole Casas MD LAB BLOOD ORDERABLES Melba don Result [facility] [address] [place] [address] from Last 3 Months or Most Recently Relevant to Health Maintenance Insurance [facility] [place] [address] Advance Directives * Full Code (Latest Code Status on File) Date Activated Date Inactivated Comments 12/12/2024 11:07 PM 12/17/2024 3:22 PM Question Answer Comments I have reviewed the capacity from the link above and, if needed, have updated to appropriate status: Yes Care Teams Surgical Physician Assistant Relationship Specialty Start Date End Date Malcolm Hayward APRN [address] [place] [address] PCP - General 09/21/23
--- OUTSIDE RECORDS SUMMARY | 2025-03-28 21:37 | XMS_ITS | Encounter Summary ---
Author Organization Healthcare Address [address] [id number] Care Team Providers Care Cash Person Name Role Phone Malcolm Hayward MOLYBDENUM STEAMER OPERATOR Primary Care Provider [phone] Encounter Details Date Type Department Care Team (Late st Contact Info) Description 02/27/2025 [facility] [address] [place] [address] Divine Archer, MOLYBDENUM STEAMER OPERATOR 2[address] [facility] [address] [place] [address] Social History Tobacco Use Types [...] money to buy more. Never true 12/17/19 Within the past 12 months, t he [...] any time in the past 12 m [facility], were you homeless or living in a nursing home (including now)? No 12/16/2024 Utilities Answer [...] documented as of this encounter Care Teams Cash Person Relationship Specialty Start Date End Date Malcolm Hayward APRN [address] [place] [address] PCP - General 09/21/23 documented as of this encounter
--- OUTSIDE RECORDS SUMMARY | 2025-03-28 21:37 | XMS_ITS | Encounter Summary ---
Author Organization Healthcare Address [address] [id number] Care Team Providers Care Solar Sales Manager Name Role Phone Malcolm Hayward ADALGISA Primary Care Provider [phone] Reason for Visit * Reason Onset Date Comments Med Refill 02/27/2025 Encounter Details Date Type Department Care Team (Late st Contact Info) Description 02/27/2025 Refill [place] [facility] Endocrinology [address] [place] [address] Iveth Hurd Social History Tobacco [...] documented as of this encounter Care Teams Solar Sales Manager Relationship Specialty Start Date End Date Maclolm Hayward APRN [address] [place] [address] PCP - General 09/21/23 documented as of this encounter
--- OUTSIDE RECORDS SUMMARY | 2025-03-28 21:37 | XMS_ITS | Encounter Summary ---
Author Organization Healthcare Address [address] [id number] Care Team Providers Care Forest Pathology Professor Name Role Phone Malcolm Hayward ADALGISA Primary Care Provider [phone] Reason for Visit * Reason Onset Date Comments Med Refill 02/21/2025 Encounter Details Date Type Department Care Team (Late st Contact Info) Description 02/21/2025 Refill [facility] [facility] Endocrinology [address] [place] [address] Pratibha Forde, PA 2[address] [facility] [address] [place] [address] Social History Tobacco Use Types [...] any time in the past 12 m [facility], were you homeless or living in [...] documented as of this encounter Care Teams Forest Pathology Professor Relationship Specialty Start Date End Date Malcolm Hayward APRN [address] [place] [address] PCP - General 09/21/23 documented as of this encounter
--- OUTSIDE RECORDS SUMMARY | 2025-03-28 21:37 | XMS_ITS | Encounter Summary ---
Author Organization [facility] Address [address] [id number] Care Team Providers Care Production Sound Mixer Name Role Phone Malcolm Hayward MESSENGER FLOORPERSON Primary Care Provider [phone] Reason for Visit * Reason Comments Med Refill Encounter Details Date Type Department Care Team (Late st Contact Info) Description 12/02/[address] [facility] Endocrinology [address] [place] [address] Divine Archer, MESSENGER FLOORPERSON 2[address] [facility] [address] [place] [address] Social History Tobacco Use Types [...] AN APPT. * Telephone Encounter - Sylwia Cleaning, PharmD - 12/02/2024 1:04 PM EDT Refill [...] documented as of this encounter Care Teams Production Sound Mixer Relationship Specialty Start Date End Date Malcolm Hayward APRN [address] [place] [address] PCP - General 09/21/23 documented as of this encounter
== END 2025-03-28 23:59 | disposition home or self-care (01) ==
LOC: LAB.DROPOF 21:35
PROVIDERS: PCP Nurse Practitioner Family; Visit Provider Nurse Practitioner Family
DX: R39.9 Unspecified symptoms and signs involving the genitourinary system (principal)
CPT/HCPCS: 87086; 87088

== ENCOUNTER 2025-04-05 10:46 | Outpatient (CLI) | payer MEDICARE, BC, SELFPAY ==
--- OUTSIDE RECORDS SUMMARY | 2025-02-15 20:00 | XMS_ITS | Clinical Summary ---
Author Organization Unknown Care Team Providers Care Ventilation Worker Name Role Phone SHAIJORDANSARI Mensah Unavailable Unavailable SILVINA OT, PINKY Unavailable Unavailable MELVIN RN, MEÑO Unavailable Unavailable EMI PT, KAN Unavailable Unavailable Payers Payer Name Policy Type Policy Number Effective Date Expira tion Date MEDICARE PD [id number] Problems Condition Name Condition Details Condition Category [...] OF NICOTINE DEPENDENCE Active 12-22 00:00: 00 GROUP HOME (CURRENT) USE OF ORAL HYPOGLYCEMIC DRUGS Active 12-22 00:00: 00 INTAKE MAN (CURRENT) USE OF INSULIN Active 12-22 00:00: 00 INTAKE MAN (CURRENT) USE OF ANTICOAGULAN TS Active 12-22 [...] 325 mg tablet 12-22 00:00: 00 Yes [id number] PAIN 2 tablet EVERY 6 HOURS 2 tablet EVERY 6 HOURS (route: oral) Med Classific ation: Analgesic , Anti-infl ammatory or Antipyret ic atorvastati n 40 mg tablet 12-22 00:00: 00 Yes [id number] CHOLESTEROL 1 tablet DAILY 1 tablet DAILY (route: oral) Med Classific ation: Cardiovas cular Therapy Agents Bactrim DS 800 mg-160 mg tablet 12-22 00:00: 00 12-27 23:59 :00 No [id number] INFECTION 2 tablet 2 TIMES DAILY 2 tablet 2 TIMES DAILY (route: oral) Med Classific ation: Anti-Infe ctive Agents bisoprolol fumarate 5 mg tablet 12-22 00:00: 00 Yes [id number] HTN 1 tablet 2 TIMES DAILY 1 tablet 2 TIMES DAILY (route: oral) Med Classific ation: Cardiovas cular Therapy Agents diltiazem 120 mg tablet 12-22 00:00: 00 Yes [id number] HYPERTENSIO N 1 tablet DAILY 1 tablet DAILY (route: oral) Med Classific ation: Cardiovas cular Therapy Agents gabapentin 600 mg tablet 12-22 00:00: 00 Yes [id number] PAIN 1 tablet 3 TIMES DAILY 1 tablet 3 TIMES DAILY (route: oral) Med Classific ation: Central Nervous System Agents lorazepam 1 mg tablet 12-22 00:00: 00 Yes [id number] ANXIETY 1 tablet DAILY 1 tablet DAILY (route: oral) Med Classific ation: Central Nervous System Agents metformin 1,000 mg tablet 12-22 00:00: 00 Yes [id number] DM2 1 tablet 2 TIMES DAILY 1 tablet 2 TIMES DAILY (route: oral) Med Classific ation: Endocrine naloxone 4 mg/actuatio n nasal spray 12-22 00:00: 00 Yes [id number] NARCOTIC OVERDOSE 1 spray DIRECTED 1 spray DIRECTED (route: nasal) Med Classific ation: Antidotes and other Reversal Agents Novolog Mix 70-30 U-100 Insulin 100 unit/mL subcutaneou s solution 12-22 00:00: 00 Yes [id number] DM2 90 unit 3 TIMES DAILY 90 unit 3 TIMES DAILY (route: subcutaneo us) Med Classific ation: Endocrine omeprazole 40 mg capsule,del ayed release 12-22 00:00: 00 Yes [id number] GERD 1 capsule 2 TIMES DAILY 1 capsule 2 TIMES DAILY (route: oral) Med Classific ation: Gastroint estinal Therapy Agents ondansetron 4 mg disintegrat ing tablet 12-22 00:00: 00 Yes [id number] NAUSEA 1 tablet EVERY 6 HOURS 1 tablet EVERY 6 HOURS (route: oral) Med Classific ation: Gastroint estinal Therapy Agents oxycodone 5 mg tablet 12-22 00:00: 00 Yes [id number] SEVERE PAIN 1 tablet EVERY 6 HOURS 1 tablet EVERY 6 HOURS (route: oral) Med Classific ation: Analgesic , Anti-infl ammatory or Antipyret ic spironolact one 50 mg tablet 12-22 00:00: 00 Yes [id number] BLOOD PRESSURE 1 tablet DAILY 1 tablet DAILY (route: oral) Med Classific ation: Cardiovas cular Therapy Agents torsemide 20 mg tablet 12-22 00:00: 00 Yes [id number] FLUID OVERLOAD 1 tablet DAILY 1 tablet DAILY (route: oral) Med Classific ation: Cardiovas cular Therapy Agents trazodone 100 mg tablet 12-22 00:00: 00 Yes [id number] SLEEP 1 tablet EVERY PM 1 tablet EVERY PM (route: oral) Med Classific ation: Central Nervous System Agents venlafaxine ER 150 mg capsule,ext ended release 24 hr 12-22 00:00: 00 Yes [id number] DEPRESSION 1 capsule DAILY 1 capsule DAILY (route: oral) Med Classific ation: Central Nervous System Agents Ventolin HFA 90 mcg/actuati on aerosol inhaler 12-22 00:00: 00 Yes [id number] WHEEZING/ SOA 2 puff EVERY 6 HOURS 2 puff EVERY 6 HOURS (route: inhalation ) Med Classific ation: Respirato ry Therapy Agents Vraylar 3 mg capsule 12-22 00:00: 00 Yes [id number] DEPRESSION 1 capsule DAILY 1 capsule DAILY (route: oral) Med Classific ation: Central Nervous System Agents Xarelto 20 mg tablet 12-22 00:00: 00 Yes [id number] ANTICOAGULA NT 1 tablet DAILY 1 tablet DAILY (route: oral) Med Classific ation: Hematolog ical Agents nitrofurant oin 100 mg tablet 01-01 00:00: 00 01-08:59 :00 No [id number] ANTIBIOTIC 100 mg EVERY 12 HOURS 100 mg EVERY 12 HOURS (route: oral) Med Classific ation: Genitouri nary Therapy Bactrim DS 800 mg-160 mg tablet 01-12 00:00: 00 01-19 23:59 :00 No [id number] PROPHYLAXIS FOR RIGHT UPPER EXTREMITY WOUND INFECTION 1 tablet 2 TIMES DAILY 1 tablet 2 TIMES DAILY (route: oral) Med Classific ation: Anti-Infe ctive Agents Cavilon Durable Barrier 1.3 % topical cream 01-12 00:00: 00 Yes [id number] WOUND PROTECTANT Per instruc tions DAILY Per [...] End Date/Time Encounter Type Admission Type Attending [facility] Care Department Encounter ID Discharge Date Discharge Status Discharge Condition Discharge Reason Percent Goals Met 2024-12-22 00:00:00 2025-02-16 00:00:00 Outpatient NEW ADMISSION [facility] [id number] 00:00:00 DISCHARGE TO HOME OR SELF CARE MODERATE ASSIST WITH TRANSFER/A MBULATION/ ADLS PER CLIENT REQUEST 79.66
--- OUTSIDE RECORDS SUMMARY | 2025-02-15 20:00 | XMS_ITS | Clinical Summary ---
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 Active 12-22 00:00: 00 NAPPER FIXER (CURRENT) USE OF ANTICOAGULAN TS Active 12-22 [...] 325 mg tablet 12-22 00:00: 00 Yes [id number] PAIN 2 tablet EVERY 6 HOURS 2 tablet EVERY 6 HOURS (route: oral) Med Classific ation: Analgesic , Anti-infl ammatory or Antipyret ic atorvastati n 40 mg tablet 12-22 00:00: 00 Yes [id number] CHOLESTEROL 1 tablet DAILY 1 tablet DAILY (route: oral) Med Classific ation: Cardiovas cular Therapy Agents Bactrim DS 800 mg-160 mg tablet 12-22 00:00: 00 12-27 23:59 :00 No [id number] INFECTION 2 tablet 2 TIMES DAILY 2 tablet 2 TIMES DAILY (route: oral) Med Classific ation: Anti-Infe ctive Agents bisoprolol fumarate 5 mg tablet 12-22 00:00: 00 Yes [id number] HTN 1 tablet 2 TIMES DAILY 1 tablet 2 TIMES DAILY (route: oral) Med Classific ation: Cardiovas cular Therapy Agents diltiazem 120 mg tablet 12-22 00:00: 00 Yes [id number] HYPERTENSIO N 1 tablet DAILY 1 tablet DAILY (route: oral) Med Classific ation: Cardiovas cular Therapy Agents gabapentin 600 mg tablet 12-22 00:00: 00 Yes [id number] PAIN 1 tablet 3 TIMES DAILY 1 tablet 3 TIMES DAILY (route: oral) Med Classific ation: Central Nervous System Agents lorazepam 1 mg tablet 12-22 00:00: 00 Yes [id number] ANXIETY 1 tablet DAILY 1 tablet DAILY (route: oral) Med Classific ation: Central Nervous System Agents metformin 1,000 mg tablet 12-22 00:00: 00 Yes [id number] DM2 1 tablet 2 TIMES DAILY 1 tablet 2 TIMES DAILY (route: oral) Med Classific ation: Endocrine naloxone 4 mg/actuatio n nasal spray 12-22 00:00: 00 Yes [id number] NARCOTIC OVERDOSE 1 spray DIRECTED 1 spray DIRECTED (route: nasal) Med Classific ation: Antidotes and other Reversal Agents Novolog Mix 70-30 U-100 Insulin 100 unit/mL subcutaneou s solution 12-22 00:00: 00 Yes [id number] DM2 90 unit 3 TIMES DAILY 90 unit 3 TIMES DAILY (route: subcutaneo us) Med Classific ation: Endocrine omeprazole 40 mg capsule,del ayed release 12-22 00:00: 00 Yes [id number] GERD 1 capsule 2 TIMES DAILY 1 capsule 2 TIMES DAILY (route: oral) Med Classific ation: Gastroint estinal Therapy Agents ondansetron 4 mg disintegrat ing tablet 12-22 00:00: 00 Yes [id number] NAUSEA 1 tablet EVERY 6 HOURS 1 tablet EVERY 6 HOURS (route: oral) Med Classific ation: Gastroint estinal Therapy Agents oxycodone 5 mg tablet 12-22 00:00: 00 Yes [id number] SEVERE PAIN 1 tablet EVERY 6 HOURS 1 tablet EVERY 6 HOURS (route: oral) Med Classific ation: Analgesic , Anti-infl ammatory or Antipyret ic spironolact one 50 mg tablet 12-22 00:00: 00 Yes [id number] BLOOD PRESSURE 1 tablet DAILY 1 tablet DAILY (route: oral) Med Classific ation: Cardiovas cular Therapy Agents torsemide 20 mg tablet 12-22 00:00: 00 Yes [id number] FLUID OVERLOAD 1 tablet DAILY 1 tablet DAILY (route: oral) Med Classific ation: Cardiovas cular Therapy Agents trazodone 100 mg tablet 12-22 00:00: 00 Yes [id number] SLEEP 1 tablet EVERY PM 1 tablet EVERY PM (route: oral) Med Classific ation: Central Nervous System Agents venlafaxine ER 150 mg capsule,ext ended release 24 hr 12-22 00:00: 00 Yes [id number] DEPRESSION 1 capsule DAILY 1 capsule DAILY (route: oral) Med Classific ation: Central Nervous System Agents Ventolin HFA 90 mcg/actuati on aerosol inhaler 12-22 00:00: 00 Yes [id number] WHEEZING/ SOA 2 puff EVERY 6 HOURS 2 puff EVERY 6 HOURS (route: inhalation ) Med Classific ation: Respirato ry Therapy Agents Vraylar 3 mg capsule 12-22 00:00: 00 Yes [id number] DEPRESSION 1 capsule DAILY 1 capsule DAILY (route: oral) Med Classific ation: Central Nervous System Agents Xarelto 20 mg tablet 12-22 00:00: 00 Yes [id number] ANTICOAGULA NT 1 tablet DAILY 1 tablet DAILY (route: oral) Med Classific ation: Hematolog ical Agents nitrofurant oin 100 mg tablet 01-01 00:00: 00 01-08:59 :00 No [id number] ANTIBIOTIC 100 mg EVERY 12 HOURS 100 mg EVERY 12 HOURS (route: oral) Med Classific ation: Genitouri nary Therapy Bactrim DS 800 mg-160 mg tablet 01-12 00:00: 00 01-19 23:59 :00 No [id number] PROPHYLAXIS FOR RIGHT UPPER EXTREMITY WOUND INFECTION 1 tablet 2 TIMES DAILY 1 tablet 2 TIMES DAILY (route: oral) Med Classific ation: Anti-Infe ctive Agents Cavilon Durable Barrier 1.3 % topical cream 01-12 00:00: 00 Yes [id number] WOUND PROTECTANT Per instruc tions DAILY Per [...] End Date/Time Encounter Type Admission Type Attending [facility] Care Department Encounter ID Discharge Date Discharge Status Discharge Condition Discharge Reason Percent Goals Met 2024-12-22 00:00:00 2025-02-16 00:00:00 Outpatient NEW ADMISSION MEÑO [facility] [id number] 6698-08-07 00:00:00 DISCHARGE TO HOME OR SELF CARE MODERATE ASSIST WITH TRANSFER/A MBULATION/ ADLS PER CLIENT REQUEST 79.66
--- OUTSIDE RECORDS SUMMARY | 2025-04-07 10:49 | XMS_ITS | Encounter Summary ---
Author Organization Healthcare Address [address] [id number] Care Team Providers Care Pan Dumper Name Role Phone Malcolm Hayward CARDIAC SURGEON Primary Care Provider [phone] Reason for Visit * Reason Comments Med Refill Encounter Details Date Type Department Care Team (Late st Contact Info) Description 07/07/2024 Refill [facility] [facility] [place] Endocrinology [address] [place] [address] Mayra Torres PA [address] [address] Type 2 diabetes mellitus (CMS/HCC) [...] documented as of this encounter Care Teams Pan Dumper Relationship Specialty Start Date End Date Malcolm Hayward APRN [address] [place] [address] PCP - General 09/21/23 documented as of this encounter
--- OUTSIDE RECORDS SUMMARY | 2025-04-07 10:49 | XMS_ITS | Clinical Summary ---
Author Organization [employer] ([place], [place], [place], [place]) Address [address] [place] [address] Care Team Providers Care Real Estate Consultant Name Role Phone Malcolm Hayward APRN Primary Care Provider [phone] Allergies No known active allergies Medications atorvastatin [...] Panel 2012 Medicare Initial AWV [id number] 02/11/2023 Hemoglobin A1C 12/20/2024 COVID-19 VACCINE (3 - 2024- season) 2025, 01/25/2021 Influenza Vaccine (#1) 2025 Pneumococcal Vaccine: 0-49 Y ears (3 of 3 - PCV20 or PCV21) 2027 04/26/2020, 12/24/2016 Insurance MEDICARE PART A B /[facility] Care Teams Real Estate Consultant Relationship Specialty Start Date End Date Malcolm Hayward APRN [address] [place] [address] PCP - General Nurse Practitioner 12/20/24
--- OUTSIDE RECORDS SUMMARY | 2025-04-07 10:49 | XMS_ITS | Encounter Summary ---
Author Organization Healthcare Address [address] [id number] Care Team Providers Care Dairy Equipment Specialist Name Role Phone Malcolm Hayward CONCRETE MIXER TRUCK DRIVER Primary Care Provider [phone] Encounter Details Date Type Department Care Team (Late st Contact Info) Description 02/27/2025 [facility] [address] [place] [address] Divine Archer, CONCRETE MIXER TRUCK DRIVER 2195 [facility] [address] [place] [address] Social History Tobacco Use Types [...] any time in the past 12 m [facility], were you homeless or living in a [...] documented as of this encounter Care Teams Dairy Equipment Specialist Relationship Specialty Start Date End Date Malcolm Hayward APRN [address] [place] [address] PCP - General 09/21/23 documented as of this encounter
--- OUTSIDE RECORDS SUMMARY | 2025-04-07 10:49 | XMS_ITS | Clinical Summary ---
Author Organization [facility] Address [address] [place] [address] Care Team Providers Care Factory Focus Technician Name Role Phone Malcolm Hayward ADALGISA Primary [...] 30 packet 12/18/19 25 Active HYDROcodone-acetam inophen ([place]) 10-325 MG tablet Take 1 tablet by [...] 02/23/20 25 Active Insulin Pen Needle (Pen [place]) 31G X 5 MM [facility] USE TO INJECT INSULIN 3 TIMES PER [...] and cont dressing changes Abnormal ECG 05/19/2024 Alcohol abuse 05/19/2024 Anxiety disorder 05/19/2024 Bilateral knee pain 05/19/2024 Callus of foot 05/19/2024 Change of skin color 05/19/2024 Chest wall pain 05/19/2024 CHF (congestive heart failure) 05/19/2024 COPD (chronic obstructive pulmonary disease) 01/2024 Decreased pedal pulses 05/19/2024 Dehydration 05/19/2024 Dependence on supplemental oxygen 05/19/2024 Depression 05/19/2024 Diabetic neuropathy 05/19/2024 Dyspnea 05/19/2024 Edema of both lower extremities 05/19/2024 Epididymitis 05/19/2024 Hyperglycemia due to type 2 diabetes mellitus Insomnia 05/19/2024 Lumbar radiculopathy 05/19/2024 Mood swings 05/19/2024 Nausea 05/19/2024 Noncompliance 05/19/2024 Numbness and tingling of both legs 05/19/2024 Onychodystrophy 05/19/2024 Onychomycosis 05/19/2024 Open wound of second toe of left foot 05/19/2024 Palpitations 05/19/2024 Atrial fibrillation with rapid ventricular respo nse 05/19/2024 Peripheral edema 05/19/2024 Primary osteoarthritis of knees, bilateral 05/19 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 05/19/2024 S/P gastric sleeve procedure 05/19/2024 Diabetic ulcer of left foot associated with diabetes mellitus due to underlying condition, limited to breakdown of skin 05/19/2024 Smoker unmotivated to quit 05/19/2024 Tachycardia 05/19/2024 Neuropathy 09/30/2021 Other hyperlipidemia [...] Tobacco abuse counseling 12/24/2016 Bone pain 06/27/2014 Resolved Problems Problem Noted Date Diagnosed Date Resolved Date Acute kidney injury 05/19/2024 04/02/20 25 CAP (community acquired pneumonia) 05/19/2024 04/02/2025 Cellulitis 05/19/2024 04/02/2025 Gastroenteritis 05/19/2024 04/02/2025 Left lower lobe pneumonia 05/19/2024 Sepsis 05/19/2024 04/02/2025 UTI (urinary tract infection) 05/19/2024 04/02/2025 Encounters Date Type Department Care Team Description 02/27/[address] [address] [facility] Endocrinology [address] [place] [address] Iveth Hurd 02/27/[address] [facility] Endocrinology [address] [place] [address] Divine Archer APRN 02/21/[address] [facility] Endocrinology [address] [place] [address] Pratibha Forde PA 01/10/2025 12:00 PM EDT Office Visit [facility] General Surgery [address], [address] [place] [address] Abigail King, ADALGISA Dermatitis associated with moisture (Primary Dx); Boil of trunk 01/10/2025 Travel from Last 3 Months Immunizations Immunization Administration [...] any time in the past 12 m [facility], were you homeless or living in a jail (including now)? No 12/16/2024 Utilities Answer Date Recorded In the past 12 months has th e [employer], gas, oil, or water company threatened to [...] 2022 Sigmoidoscopy 2022 [facility]-Colorectal Cancer Screening 2022 [id number] Vaccine (3 - 2024- season) 2025 02/22/2021, 01/25/2021 [facility]-Diabetes: Hemoglobin A1C [...] 10.9(H) <5.7 % 12/13/2024 11:55 AM EDT [facility] Blood Venous blood specimen / Unknown Venipuncture / Unknown 12/12/2024 11:46 PM EDT 12/13/2024 12:06 AM EDT Narrative [facility] - 12/13/2024 11:55 AM EDT HA1C Interpretive Data: Diagnosis of Diabetes: Diabetic > or = 6.5% Pre-diabetic 5.7 to 6.4% Non-diabetic < or = 5.6% Glycemic Targets for Type I and Type II Diabetics: Non- Adults <7.0% Adults <6.0% Children and Adolescents <7.5% Source: [place] Diabetes Association. Standards of medical care in diabetes,2017. Diabetes Care.2017:40 (suppl 1):S1-S135. Nicloe Casas MD LAB BLOOD ORDERABLES Melba don Result [facility] [address] [place] [address] from Last 3 Months or Most Recently Relevant to Health Maintenance Insurance [facility] [place] [address] Advance Directives * Full Code (Latest Code Status on File) Date Activated Date Inactivated Comments 12/12/2024 11:07 PM 12/17/2024 3:22 PM Question Answer Comments I have reviewed the capacity from the link above and, if needed, have updated to appropriate status: Yes Care Teams Factory Focus Technician Relationship Specialty Start Date End Date Malcolm Hayward APRN [address] [place] [address] [place] [address] PCP - General 09/21/23
--- OUTSIDE RECORDS SUMMARY | 2025-04-07 10:49 | XMS_ITS | Encounter Summary ---
Author Organization [facility] Address [address] [id number] Care Team Providers Care Cardiac Rehabilitation Specialist Name Role Phone Malcolm Hayward MANAGER VIDEO Primary Care Provider [phone] Reason for Visit * Reason Comments Med Refill Encounter Details Date Type Department Care Team (Late st Contact Info) Description 12/02/2024 Refill [place] [facility] Endocrinology [address] [place] [address] Divine Archer, MANAGER VIDEO [address] [facility] [address] [place] [address] Social History Tobacco Use Types [...] documented as of this encounter Care Teams Cardiac Rehabilitation Specialist Relationship Specialty Start Date End Date Malcolm Hayward APRN [address] [place] [address] PCP - General 09/21/23 documented as of this encounter
--- OUTSIDE RECORDS SUMMARY | 2025-04-07 10:49 | XMS_ITS | Referral Summary ---
Author Organization [facility] [employer] ([place], [place], [place], [place]) Address [address] [place] [address] Care Team Providers Care Automatic Spinning Lathe Setter Name Role Phone Malcolm Hayward APRN Primary Care Provider [phone] Allergies No known active allergies Medications atorvastatin [...] - Plan of Treatment Not on file Insurance MEDICARE PART A B BLUE CROSS/BLUE SHIELD Care Teams Automatic Spinning Lathe Setter Relationship Specialty Start Date End Date Malcolm Hayward, ADALGISA [address] [place] [address] PCP - General Nurse Practitioner 12/20/24
--- OUTSIDE RECORDS SUMMARY | 2025-04-07 10:49 | XMS_ITS | Encounter Summary ---
Author Organization Healthcare Address [address] [id number] Care Team Providers Care Park Maintenance Technician Name Role Phone Malcolm Hayward ADALGISA Primary Care Provider [phone] Reason for Visit * Reason Onset Date Comments Med Refill 02/27/2025 Encounter Details Date Type Department Care Team (Late st Contact Info) Description 02/27/2025 Refill [place] [facility] Endocrinology [address] [place] [address] Iveth Hurd Social History Tobacco [...] were you homeless or living in a long-term (including now)? No 12/16/2024 Utilities Answer Date [...] documented as of this encounter Care Teams Park Maintenance Technician Relationship Specialty Start Date End Date Malcolm Hayward APRN [address] [place] [address] [place] [address] PCP - General 09/21/23 documented as of this encounter
--- OUTSIDE RECORDS SUMMARY | 2025-04-07 10:50 | XMS_ITS | Clinical Summary ---
[facility] Organization [facility] Address [address] [place] [address] Care Team Providers Care Septic Cleaner Name Role Phone Provider, No Known Primary [...] TEST 2022 FIT Testing (1 year) 2022 INFLUENZA VACCINE 02/10/2025 Pneumococcal Vaccine 0-49 Aged Out No longer eligible based on patient's age to complete this topic Insurance [facility] PPO Care Teams Septic Cleaner Relationship Specialty Start Date End Date Provider, No Known [facility] [place] [address] PCP - General 02/11/21
--- OUTSIDE RECORDS SUMMARY | 2025-04-07 10:50 | XMS_ITS | Encounter Summary ---
Author Organization Healthcare Address [address] [id number] Care Team Providers Care Mangle Press Catcher Name Role Phone Malcolm Hayward ADALGISA Primary Care Provider [phone] Reason for Visit * Reason Onset Date Comments Med Refill 02/21/2025 Encounter Details Date Type Department Care Team (Late st Contact Info) Description 02/21/2025 Refill [facility] Endocrinology [address] [place] [address] Pratibha Forde, PA 2[address] [facility] [address] [place] [address] Social History Tobacco Use Types [...] documented as of this encounter Care Teams Mangle Press Catcher Relationship Specialty Start Date End Date Malcolm Hayward APRN [address] [place] [address] PCP - General 09/21/23 documented as of this encounter
--- OUTSIDE RECORDS SUMMARY | 2025-04-07 10:50 | XMS_ITS | Encounter Summary ---
Author Organization Healthcare Address [address] [id number] Care Team Providers Care University Tutor Name Role Phone Malcolm Hayward MACHINE CHOCOLATE MOLDER Primary Care Provider [phone] Reason for Visit * Reason Comments Med Refill Encounter Details Date Type Department Care Team (Late st Contact Info) Description 12/31/2023 Refill [place] [facility] Endocrinology [address] [place] [address] Earline Loaiza, MACHINE CHOCOLATE MOLDER 2195 [facility] [address] [place] [address] Type 2 diabetes mellitus (CMS/HCC) [...] documented as of this encounter Care Teams University Tutor Relationship Specialty Start Date End Date Malcolm Hayward APRN [address] [place] [address] PCP - General 09/21/23 documented as of this encounter
== END 2025-04-05 23:59 ==
LOC: LAB.DROPOF 04-07 10:47
PROVIDERS: PCP Nurse Practitioner Family; Visit Provider Nurse Practitioner
DX: E11.621 Type 2 diabetes mellitus with foot ulcer (principal); L97.519 Non-pressure chronic ulcer of other part of right foot with unspecified severity
CPT/HCPCS: 87070; 87077; 87205

== ENCOUNTER 2025-04-08 09:15 | Emergency (ER) | payer MEDICARE, BC, SELFPAY ==
--- OUTSIDE RECORDS SUMMARY | 2025-02-15 20:00 | XMS_ITS | Clinical Summary ---
Author Organization Unknown Care Team Providers Care [employer] Name Role Phone SHAIJORDANSARI Mensah Unavailable Unavailable SILVINA OT, PINKY Unavailable Unavailable MELVIN RN, MEÑO Unavailable Unavailable EMI PT, KAN Unavailable Unavailable Payers Payer Name Policy Type Policy Number Effective Date Expira tion Date MEDICARE PD [id number] Problems Condition Name Condition Details Condition Category Status Onset Date Resolution Date Last Treatment Date Treating Clinician Comments CUTANEOUS ABSCESS OF GROIN Active 12-22 00:00: 00 CELLULITIS OF RIGHT LOWER LIMB Active 12-22 00:00: 00 UNSPECIFIED ATRIAL FIBRILLATION Active 12-22 00:00: 00 TYPE 2 DIABETES MELLITUS WITH DIABETIC NEUROPATHY, UNSP Active 12-22 00:00: 00 ACUTE KIDNEY FAILURE, UNSPECIFIED Active 12-22 00:00: 00 TYPE 2 DIABETES MELLITUS WITH HYPERGLYCEMI A Active 12-22 00:00: 00 HYPERTENSIVE HEART DISEASE WITH HEART FAILURE Active 12-22 00:00: 00 HEART FAILURE, UNSPECIFIED Active 12-22 00:00: 00 CHR OBSTRUCTIVE PULMON DISEASE WITH (ACUTE) LOWER RESP INFCT Active 12-22 00:00: 00 OTHER PNEUMONIA, UNSPECIFIED ORGANISM Active 12-22 00:00: 00 MORBID (SEVERE) OBESITY DUE TO EXCESS CALORIES Active 12-22 00:00: 00 BODY MASS INDEX [BMI] 70 OR GREATER, ADULT Active 12-22 00:00: 00 GASTRO-ESOPH AGEAL REFLUX DISEASE WITHOUT ESOPHAGITIS Active 12-22 00:00: 00 ACQUIRED ABSENCE OF OTHER SPECIFIED PARTS OF DIGESTIVE TRACT Active 12-22 00:00: 00 OBSTRUCTIVE SLEEP APNEA (ADULT) (PEDIATRIC) Active 12-22 00:00: 00 OTHER HYPERLIPIDEM IA Active 12-22 00:00: 00 ALLERGIC RHINITIS, UNSPECIFIED Active 12-22 00:00: 00 ANXIETY DISORDER, UNSPECIFIED Active 12-22 00:00: 00 PROTEINURIA, UNSPECIFIED Active 12-22 00:00: 00 ALCOHOL ABUSE, IN REMISSION Active 12-22 00:00: 00 DEPRESSION, UNSPECIFIED Active 12-22 00:00: 00 BILATERAL 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 Active 12-22 00:00: 00 RADICULOPATH Y, LUMBAR REGION Active 12-22 00:00: 00 INSOMNIA, UNSPECIFIED Active 12-22 00:00: 00 NONINFECTIVE GASTROENTERI TIS AND COLITIS, UNSPECIFIED Active 12-22 00:00: 00 EPIDIDYMITIS Active 12-22 00:00: 00 DEHYDRATION Active 12-22 00:00: 00 PERSONAL HISTORY OF NICOTINE DEPENDENCE Active 12-22 00:00: 00 SENIOR CARE (CURRENT) USE OF ORAL HYPOGLYCEMIC DRUGS Active 12-22 00:00: 00 ASSISTANT PORTFOLIO 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 (CURRENT) USE OF INSULIN Active 12-22 00:00: 00 ASSISTANT PORTFOLIO MANAGER (CURRENT) USE OF ANTICOAGULAN TS Active 12-22 00:00: 00 Problems related to health literacy Active 12-22 00:00: 00 SOCIAL EXCLUSION AND REJECTION Active 12-22 00:00: 00 HISTORY OF FALLING Active 12-22 00:00: 00 Allergies, Adverse Reactions, Alerts Allergy Name Allergy Type Status Severity Reaction(s) Onset Date Inactive Date Treating Clinician Comments CLINDAMYCIN HCL Propensity to adverse reactions Active 12-22 12:46: 21 DOXYCYCLINE Propensity to adverse reactions Active 12-22 12:46: 28 Medications Ordered Medication Name Filled Medication Name Start Date Stop Date Current Medication? Ordering Clinician Indication Dosage Frequency Signature (SIG) Comments Components acetaminoph en 325 mg tablet 12-22 00:00: 00 Yes [id number] PAIN 2 tablet EVERY 6 HOURS 2 tablet EVERY 6 HOURS (route: oral) Med Classific ation: Analgesic , Anti-infl ammatory or Antipyret ic atorvastati n 40 mg tablet 12-22 00:00: 00 Yes [id number] CHOLESTEROL 1 tablet DAILY 1 tablet DAILY (route: oral) Med Classific ation: Cardiovas cular Therapy Agents Bactrim DS 800 mg-160 mg tablet 12-22 00:00: 00 12-27 23:59 :00 No [id number] INFECTION 2 tablet 2 TIMES DAILY 2 tablet 2 TIMES DAILY (route: oral) Med Classific ation: Anti-Infe ctive Agents bisoprolol fumarate 5 mg tablet 12-22 00:00: 00 Yes [id number] HTN 1 tablet 2 TIMES DAILY 1 tablet 2 TIMES DAILY (route: oral) Med Classific ation: Cardiovas cular Therapy Agents diltiazem 120 mg tablet 12-22 00:00: 00 Yes [id number] HYPERTENSIO N 1 tablet DAILY 1 tablet DAILY (route: oral) Med Classific ation: Cardiovas cular Therapy Agents gabapentin 600 mg tablet 12-22 00:00: 00 Yes [id number] PAIN 1 tablet 3 TIMES DAILY 1 tablet 3 TIMES DAILY (route: oral) Med Classific ation: Central Nervous System Agents lorazepam 1 mg tablet 12-22 00:00: 00 Yes [id number] ANXIETY 1 tablet DAILY 1 tablet DAILY (route: oral) Med Classific ation: Central Nervous System Agents metformin 1,000 mg tablet 12-22 00:00: 00 Yes [id number] DM2 1 tablet 2 TIMES DAILY 1 tablet 2 TIMES DAILY (route: oral) Med Classific ation: Endocrine naloxone 4 mg/actuatio n nasal spray 12-22 00:00: 00 Yes [id number] NARCOTIC OVERDOSE 1 spray DIRECTED 1 spray DIRECTED (route: nasal) Med Classific ation: Antidotes and other Reversal Agents Novolog Mix 70-30 U-100 Insulin 100 unit/mL subcutaneou s solution 12-22 00:00: 00 Yes [id number] DM2 90 unit 3 TIMES DAILY 90 unit 3 TIMES DAILY (route: subcutaneo us) Med Classific ation: Endocrine omeprazole 40 mg capsule,del ayed release 12-22 00:00: 00 Yes [id number] GERD 1 capsule 2 TIMES DAILY 1 capsule 2 TIMES DAILY (route: oral) Med Classific ation: Gastroint estinal Therapy Agents ondansetron 4 mg disintegrat ing tablet 12-22 00:00: 00 Yes [id number] NAUSEA 1 tablet EVERY 6 HOURS 1 tablet EVERY 6 HOURS (route: oral) Med Classific ation: Gastroint estinal Therapy Agents oxycodone 5 mg tablet 12-22 00:00: 00 Yes [id number] SEVERE PAIN 1 tablet EVERY 6 HOURS 1 tablet EVERY 6 HOURS (route: oral) Med Classific ation: Analgesic , Anti-infl ammatory or Antipyret ic spironolact one 50 mg tablet 12-22 00:00: 00 Yes [id number] BLOOD PRESSURE 1 tablet DAILY 1 tablet DAILY (route: oral) Med Classific ation: Cardiovas cular Therapy Agents torsemide 20 mg tablet 12-22 00:00: 00 Yes [id number] FLUID OVERLOAD 1 tablet DAILY 1 tablet DAILY (route: oral) Med Classific ation: Cardiovas cular Therapy Agents trazodone 100 mg tablet 12-22 00:00: 00 Yes [id number] SLEEP 1 tablet EVERY PM 1 tablet EVERY PM (route: oral) Med Classific ation: Central Nervous System Agents venlafaxine ER 150 mg capsule,ext ended release 24 hr 12-22 00:00: 00 Yes [id number] DEPRESSION 1 capsule DAILY 1 capsule DAILY (route: oral) Med Classific ation: Central Nervous System Agents Ventolin HFA 90 mcg/actuati on aerosol inhaler 12-22 00:00: 00 Yes [id number] WHEEZING/ SOA 2 puff EVERY 6 HOURS 2 puff EVERY 6 HOURS (route: inhalation ) Med Classific ation: Respirato ry Therapy Agents Vraylar 3 mg capsule 12-22 00:00: 00 Yes [id number] DEPRESSION 1 capsule DAILY 1 capsule DAILY (route: oral) Med Classific ation: Central Nervous System Agents Xarelto 20 mg tablet 12-22 00:00: 00 Yes [id number] ANTICOAGULA NT 1 tablet DAILY 1 tablet DAILY (route: oral) Med Classific ation: Hematolog ical Agents nitrofurant oin 100 mg tablet 01-01 00:00: 00 01-08:59 :00 No [id number] ANTIBIOTIC 100 mg EVERY 12 HOURS 100 mg EVERY 12 HOURS (route: oral) Med Classific ation: Genitouri nary Therapy Bactrim DS 800 mg-160 mg tablet 01-12 00:00: 00 01-19 23:59 :00 No [id number] PROPHYLAXIS FOR RIGHT UPPER EXTREMITY WOUND INFECTION 1 tablet 2 TIMES DAILY 1 tablet 2 TIMES DAILY (route: oral) Med Classific ation: Anti-Infe ctive Agents Cavilon Durable Barrier 1.3 % topical cream 01-12 00:00: 00 Yes [id number] WOUND PROTECTANT Per instruc tions DAILY Per instructio ns DAILY (route: topical) Med Classific ation: Dermatolo gical Vital Signs Vital Name Observation Time Observation Value Commen ts Temperature 2025-02-02 09:51:00.000 97.5 [degF] Temperature 2025-01-25 11:09:00.000 97.9 [degF] Temperature 2025-01-16 15:08:00.000 97.4 [degF] Temperature 2025-01-12 11:46:00.000 97.8 [degF] Temperature 2025-01-11 13:00:00.000 97.7 [degF] Temperature 2025-01-06 11:43:00.000 98 [degF] Temperature 2025-01-02 12:02:00.000 97.7 [degF] Temperature 2024-12-29 12:09:00.000 97.8 [degF] Temperature 2024-12-28 12:37:00.000 97.9 [degF] Temperature 2024-12-22 12:14:00.000 98.1 [degF] BMI (%) 2024-12-22 11:55:45.000 74 kg/m2 Height 2024-12-22 11:55:20.000 72 [in_us] Pulse 2025-02-02 09:51:00.000 72 /min Pulse 2025-01-25 11:09:00.000 76 /min Pulse 2025-01-16 15:08:00.000 64 /min Pulse 2025-01-12 11:46:00.000 67 /min Pulse 2025-01-11 13:00:00.000 76 /min Pulse 2025-01-06 11:43:00.000 65 /min Pulse 2025-01-02 12:02:00.000 67 /min Pulse 2024-12-29 12:09:00.000 65 /min Pulse 2024-12-28 12:37:00.000 76 /min Pulse 2024-12-22 12:14:00.000 67 /min O2 Saturation (%) 2025-02-02 09:51:00.000 95 % O2 Saturation (%) 2025-01-25 11:09:00.000 98 % O2 Saturation (%) 2025-01-16 15:08:00.000 94 % O2 Saturation (%) 2025-01-12 11:46:00.000 96 % O2 Saturation (%) 2025-01-11 13:00:00.000 98 % O2 Saturation (%) 2025-01-06 11:43:00.000 95 % O2 Saturation (%) 2025-01-02 12:02:00.000 95 % O2 Saturation (%) 2024-12-29 12:09:00.000 95 % O2 Saturation (%) 2024-12-28 12:37:00.000 98 % O2 Saturation (%) 2024-12-22 12:14:00.000 98 % Respirations 2025-02-02 09:51:00.000 16 /min Respirations 2025-01-25 11:09:00.000 18 /min Respirations 2025-01-16 15:08:00.000 18 /min Respirations 2025-01-12 11:46:00.000 18 /min Respirations 2025-01-11 13:00:00.000 18 /min Respirations 2025-01-06 11:43:00.000 18 /min Respirations 2025-01-02 12:02:00.000 18 /min Respirations 2024-12-29 12:09:00.000 18 /min Respirations 2024-12-28 12:37:00.000 18 /min Respirations 2024-12-22 12:14:00.000 18 /min Weight (lbs) 2024-12-22 11:55:45.000 550 [lb_av] Systolic Blood Pressure 2025-02-02 09:51:00.000 133 mm [Hg] Systolic Blood Pressure 2025-01-25 11:09:00.000 125 mm [Hg] Systolic Blood Pressure 2025-01-16 15:08:00.000 122 mm [Hg] Systolic Blood Pressure 2025-01-12 11:46:00.000 117 mm [Hg] Systolic Blood Pressure 2025-01-11 13:00:00.000 145 mm [Hg] Systolic Blood Pressure 2025-01-06 11:43:00.000 130 mm [Hg] Systolic Blood Pressure 2025-01-02 12:02:00.000 135 mm [Hg] Systolic Blood Pressure 2024-12-29 12:09:00.000 109 mm [Hg] Systolic Blood Pressure 2024-12-28 12:37:00.000 118 mm [Hg] Systolic Blood Pressure 2024-12-22 12:14:00.000 120 mm [Hg] Diastolic Blood Pressure 2025-02-02 09:51:00.000 64 mm [Hg] Diastolic Blood Pressure 2025-01-25 11:09:00.000 80 mm [Hg] Diastolic Blood Pressure 2025-01-16 15:08:00.000 64 mm [Hg] Diastolic Blood Pressure 2025-01-12 11:46:00.000 64 mm [Hg] Diastolic Blood Pressure 2025-01-11 13:00:00.000 80 mm [Hg] Diastolic Blood Pressure 2025-01-06 11:43:00.000 64 mm [Hg] Diastolic Blood Pressure 2025-01-02 12:02:00.000 85 mm [Hg] Diastolic Blood Pressure 2024-12-29 12:09:00.000 62 mm [Hg] Diastolic Blood Pressure 2024-12-28 12:37:00.000 70 mm [Hg] Diastolic Blood Pressure 2024-12-22 12:14:00.000 79 mm [Hg] Plan of Treatment Planned Activity Planned Date Details Comments Future Scheduled Test SKILLED NU RSE FOR INSTRUCTIONS / REINFORCEMENT OF / MANAGEMENT OF DIABETES TO INCLUDE DIET, SKIN CARE, MEDICATION MANAGEMENT, BLOOD GLUCOSE TESTING AND DIABETIC FOOT CARE. CHECK FINGERSTICK BLOOD SUGARS ONCE DAILY BY PATIENT OR CAREGIVER. [code = SKILLED NURSE FOR INSTRUCTIONS / REINFORCEMENT OF / MANAGEMENT OF DIABETES TO INCLUDE DIET, SKIN CARE, MEDICATION MANAGEMENT, BLOOD GLUCOSE TESTING AND DIABETIC FOOT CARE. CHECK FINGERSTICK BLOOD SUGARS ONCE DAILY BY PATIENT OR CAREGIVER.] Future Scheduled Test SKILLED NU RSE TO PROVIDE SKILLED TEACHING TO PATIENT/CAREGIVER OF HYPERTENSION TO INCLUDE MEDICATION MANAGEMENT, SELF-ASSESSMENT, LOW SODIUM DIET, AND TRACKING OF BLOOD PRESSURE RESULTS. [code = SKILLED NURSE TO PROVIDE SKILLED TEACHING TO PATIENT/CAREGIVER OF HYPERTENSION TO INCLUDE MEDICATION MANAGEMENT, SELF-ASSESSMENT, LOW SODIUM DIET, AND TRACKING OF BLOOD PRESSURE RESULTS.] Future Scheduled Test SKILLED NU RSE FOR OBSERVATION / ASSESSMENT OF GASTROINTESTINAL STATUS AND TO INTERVENE TO MINIMIZE COMPLICATIONS. SKILLED NURSE TO PROVIDE SKILLED TEACHING/REINFORCEMENT RELATED TO ALTERED GASTROINTESTINAL STATUS INCLUDING PATHOPHYSIOLOGY, SELF CARE MANAGEMENT, NUTRITIONAL REQUIREMENTS, AND MEDICATION REGIMEN [code = SKILLED NURSE FOR OBSERVATION / ASSESSMENT OF GASTROINTESTINAL STATUS AND TO INTERVENE TO MINIMIZE COMPLICATIONS. SKILLED NURSE TO PROVIDE SKILLED TEACHING/REINFORCEMENT RELATED TO ALTERED GASTROINTESTINAL STATUS INCLUDING PATHOPHYSIOLOGY, SELF CARE MANAGEMENT, NUTRITIONAL REQUIREMENTS, AND MEDICATION REGIMEN] Future Scheduled Test SKILLED NU RSE TO OBSERVE AND ASSESS PATIENT WITH GENERALIZED DEPRESSION. ASSESS NEED FOR MEDICATION, MEDICATION CHANGES AND POTENTIAL NEED FOR REFERRAL TO PROVIDE COUNSELING AND ASSISTANCE WITH MANAGING DEPRESSION. [code = SKILLED NURSE TO OBSERVE AND ASSESS PATIENT WITH GENERALIZED DEPRESSION. ASSESS NEED FOR MEDICATION, MEDICATION CHANGES AND POTENTIAL NEED FOR REFERRAL TO PROVIDE COUNSELING AND ASSISTANCE WITH MANAGING DEPRESSION.] Future Scheduled Test SKILLED NU RSE FOR OBSERVATION/ASSESSMENT OF PAIN, EFFECTIVENESS OF PAIN MANAGEMENT INCLUDING MEDICATION REVIEW AND PHARMACOLOGICAL AND NONPHARMACOLOGICAL TREATMENTS AND SKILLED TEACHING RELATED TO PAIN MANAGEMENT. SKILLED NURSE TO INTERVENE WITH INCREASED PAIN LEVEL TO MINIMIZE COMPLICATIONS. [code = SKILLED NURSE FOR OBSERVATION/ASSESSMENT OF PAIN, EFFECTIVENESS OF PAIN MANAGEMENT INCLUDING MEDICATION REVIEW AND PHARMACOLOGICAL AND NONPHARMACOLOGICAL TREATMENTS AND SKILLED TEACHING RELATED TO PAIN MANAGEMENT. SKILLED NURSE TO INTERVENE WITH INCREASED PAIN LEVEL TO MINIMIZE COMPLICATIONS.] Future Scheduled Test SKILLED NU RSE TO FOCUS ON IDENTIFIED NEED FOR HIGH RISK MEDICATION INTERVENTION. [code = SKILLED NURSE TO FOCUS ON IDENTIFIED NEED FOR HIGH RISK MEDICATION INTERVENTION.] Future Scheduled Test SKILLED NU RSE FOR OBSERVATION / ASSESSMENT OF PATIENT'S IMPAIRED NUTRITION RELATED TO OBESITY. INSTRUCT PATIENT / CAREGIVER ON INTERVENTIONS DESIGNED TO IMPROVE NUTRITIONAL INTAKE AND PATIENT WELL BEING. [code = SKILLED NURSE FOR OBSERVATION / ASSESSMENT OF PATIENT'S IMPAIRED NUTRITION RELATED TO OBESITY. INSTRUCT PATIENT / CAREGIVER ON INTERVENTIONS DESIGNED TO IMPROVE NUTRITIONAL INTAKE AND PATIENT WELL BEING.] Future Scheduled Test SKILLED NU RSE TO OBSERVE AND ASSESS INTEGUMENTARY STATUS TO IDENTIFY CHANGES AND INTERVENE TO MINIMIZE COMPLICATIONS. CLINICIAN TO PROVIDE SKILLED TEACHING RELATED TO ALTERED SKIN INTEGRITY INCLUDING PATHOPHYSIOLOGY, NUTRITION, MEDICATION REGIMEN, AND MEASURES TO PROMOTE OPTIMAL SKIN INTEGRITY. [code = SKILLED NURSE TO OBSERVE AND ASSESS INTEGUMENTARY STATUS TO IDENTIFY CHANGES AND INTERVENE TO MINIMIZE COMPLICATIONS. CLINICIAN TO PROVIDE SKILLED TEACHING RELATED TO ALTERED SKIN INTEGRITY INCLUDING PATHOPHYSIOLOGY, NUTRITION, MEDICATION REGIMEN, AND MEASURES TO PROMOTE OPTIMAL SKIN INTEGRITY.] Future Scheduled Test SKILLED NU RSE TO PERFORM/TEACH WOUND CARE TO INCISION WITH ODC DRAIN INTACT LOCATED RIGHT UPPER THIGH ( THREE LOCATIONS LOCATED RIGHT MID THIGH, RIGHT UPPER THIGH AND RIGHT MEDIAL THIGH) CLEANSE WOUNDS WITH VASHE WASH, PACK WITH WET TO DRY TWICE DAILY TO BE COMPLETED BY HOME HEALTH OR CAREGIVER IN THE ABSENCE OF NURSING. [code = SKILLED NURSE TO PERFORM/TEACH WOUND CARE TO INCISION WITH DOC DRAIN INTACT LOCATED RIGHT UPPER THIGH ( THREE LOCATIONS LOCATED RIGHT MID THIGH, RIGHT UPPER THIGH AND RIGHT MEDIAL THIGH) CLEANSE WOUNDS WITH VASHE WASH, PACK WITH WET TO DRY TWICE DAILY TO BE COMPLETED BY HOME HEALTH OR CAREGIVER IN THE ABSENCE OF NURSING.] Future Scheduled Test PHYSICAL T HERAPIST TO EVALUATE/ASSESS AND DEVELOP PHYSICAL THERAPY PLAN OF CARE TO BE SIGNED BY THE PHYSICIAN. [code = PHYSICAL THERAPIST TO EVALUATE/ASSESS AND DEVELOP PHYSICAL THERAPY PLAN OF CARE TO BE SIGNED BY THE PHYSICIAN.] Future Scheduled Test OCCUPATION AL THERAPIST TO EVALUATE/ASSESS AND DEVELOP OCCUPATIONAL THERAPY PLAN OF CARE TO BE SIGNED BY THE PHYSICIAN. [code = OCCUPATIONAL THERAPIST TO EVALUATE/ASSESS AND DEVELOP OCCUPATIONAL THERAPY PLAN OF CARE TO BE SIGNED BY THE PHYSICIAN.] Future Scheduled Test SKILLED NU RSE PRN VISIT ORDER: 3 PRN VISITS MAY BE PERFORMED DURING THIS CERTIFICATION PERIOD FOR THE FOLLOWING REASON(S): WOUND CARE, ISSUES OR CONCERNS WITH THE WOUNDS, EXACERBATION OF COMORBIDITIES, FALLS OR MEDICATION ISSUES SKILLED NURSE TO EVALUATE AND DEVELOP PLAN OF CARE TO BE SIGNED BY THE PHYSICIAN. SKILLED NURSE TO ASSESS/EVALUATE ANY CONDITIONS THAT PRESENT THEMSELVES AND THAT WILL IMPACT THE PLAN OF CARE DURING THE COURSE OF THE EPISODE TO IDENTIFY CHANGES AND INTERVENE TO MINIMIZE COMPLICATIONS. TEACH AND MONITOR PATIENT/CAREGIVER ABILITY TO SAFELY ADMINISTER MEDICATIONS. PHONE TOUCHPOINTS CAN BE PERFORMED NEEDED TO SUPPLEMENT THE PLAN OF CARE. [code = SKILLED NURSE PRN VISIT ORDER: 3 PRN VISITS MAY BE PERFORMED DURING THIS CERTIFICATION PERIOD FOR THE FOLLOWING REASON(S): WOUND CARE, ISSUES OR CONCERNS WITH THE WOUNDS, EXACERBATION OF COMORBIDITIES, FALLS OR MEDICATION ISSUES SKILLED NURSE TO EVALUATE AND DEVELOP PLAN OF CARE TO BE SIGNED BY THE PHYSICIAN. SKILLED NURSE TO ASSESS/EVALUATE ANY CONDITIONS THAT PRESENT THEMSELVES AND THAT WILL IMPACT THE PLAN OF CARE DURING THE COURSE OF THE EPISODE TO IDENTIFY CHANGES AND INTERVENE TO MINIMIZE COMPLICATIONS. TEACH AND MONITOR PATIENT/CAREGIVER ABILITY TO SAFELY ADMINISTER MEDICATIONS. PHONE TOUCHPOINTS CAN BE PERFORMED NEEDED TO SUPPLEMENT THE PLAN OF CARE.] Future Scheduled Test SKILLED NU RSE TO OBSERVE AND ASSESS CARDIOVASCULAR SYSTEM TO IDENTIFY CHANGES AND INTERVENE TO MINIMIZE COMPLICATIONS AND PROMOTE SELF CARE MANAGEMENT. SKILLED NURSE TO PROVIDE SKILLED TEACHING RELATED TO PATHOPHYSIOLOGY, DISEASE MANAGEMENT, SAFE MEDICATION ADMINISTRATION, WEIGHT/EDEMA MANAGEMENT, PERMITTED ACTIVITIES, S/SX OF EXACERBATION, AND S/SX TO NOTIFY AGENCY, PHYSICIAN OR 911 RELATED TO THE DIAGNOSIS OF (ADD DIAGNOSIS). AFIB [code = SKILLED NURSE TO OBSERVE AND ASSESS CARDIOVASCULAR SYSTEM TO IDENTIFY CHANGES AND INTERVENE TO MINIMIZE COMPLICATIONS AND PROMOTE SELF CARE MANAGEMENT. SKILLED NURSE TO PROVIDE SKILLED TEACHING RELATED TO PATHOPHYSIOLOGY, DISEASE MANAGEMENT, SAFE MEDICATION ADMINISTRATION, WEIGHT/EDEMA MANAGEMENT, PERMITTED ACTIVITIES, S/SX OF EXACERBATION, AND S/SX TO NOTIFY AGENCY, PHYSICIAN OR 911 RELATED TO THE DIAGNOSIS OF (ADD DIAGNOSIS). AFIB] Future Scheduled Test PATIENT/CA REGIVER WILL BE KNOWLEDGEABLE OF DISCHARGE PLANS AND WILL DEMONSTRATE/PROVIDE EDUCATION AND RESOURCES NEEDED TO MAINTAIN HEALTH. [code = PATIENT/CAREGIVER WILL BE KNOWLEDGEABLE OF DISCHARGE PLANS AND WILL DEMONSTRATE/PROVIDE EDUCATION AND RESOURCES NEEDED TO MAINTAIN HEALTH.] Future Scheduled Test AGENCY JONATHAN L DISCHARGE PATIENT TO DR. LUNDY PHYSICIAN/HEALTH CARE PROVIDER AND MAY ACCEPT ORDERS FROM THE FOLLOWING PHYSICIANS: [code = AGENCY WILL DISCHARGE PATIENT TO DR. LUNDY PHYSICIAN/HEALTH CARE PROVIDER AND MAY ACCEPT ORDERS FROM THE FOLLOWING PHYSICIANS:] Future Scheduled Test CLINICIAN TO OBSERVE AND ASSESS FOR SIGNS OF ANXIETY AND INSTRUCT PATIENT/CAREGIVERS IN HEALTHY BEHAVIORS AND MANAGEMENT STRATEGIES. [code = CLINICIAN TO OBSERVE AND ASSESS FOR SIGNS OF ANXIETY AND INSTRUCT PATIENT/CAREGIVERS IN HEALTHY BEHAVIORS AND MANAGEMENT STRATEGIES.] Future Scheduled Test CLINICIAN TO EDUCATE PATIENT / CAREGIVER IN FALL PREVENTION AND PROVIDE INTERVENTIONS TO REDUCE FALL RISK AND ENHANCE HOME SAFETY [code = CLINICIAN TO EDUCATE PATIENT / CAREGIVER IN FALL PREVENTION AND PROVIDE INTERVENTIONS TO REDUCE FALL RISK AND ENHANCE HOME SAFETY] Future Scheduled Test PSYCHOSOCI AL / COGNITIVE ASSESSMENT INDICATES NO NEED FOR SOCIAL, FINANCIAL, OR TRANSPORTATION SUPPORT OR FOR ADDITIONAL CARE PROVIDERS/DISCIPLINES OR REFERRALS TO OUTSIDE ENTITIES. [code = PSYCHOSOCIAL / COGNITIVE ASSESSMENT INDICATES NO NEED FOR SOCIAL, FINANCIAL, OR TRANSPORTATION SUPPORT OR FOR ADDITIONAL CARE PROVIDERS/DISCIPLINES OR REFERRALS TO OUTSIDE ENTITIES.] Future Scheduled Test PHYSICAL T HERAPIST TO EVALUATE/ASSESS AND DEVELOP PHYSICAL THERAPY PLAN OF CARE TO BE SIGNED BY THE PHYSICIAN. TEACH AND MONITOR PATIENT/CAREGIVER ABILITY TO SAFELY ADMINISTER MEDICATIONS. PHONE TOUCHPOINTS CAN BE PERFORMED NEEDED TO SUPPLEMENT THE PLAN OF CARE. PHYSICAL THERAPY TO ESTABLISH/UPGRADE HOME EXERCISE PROGRAM AND PROVIDE THERAPEUTIC EXERCISES AND/OR MANUAL THERAPY TECHNIQUES DESIGNED TO RESTORE FUNCTIONAL STRENGTH AND ROM. PHYSICAL THERAPY TO PROVIDE TECHNIQUES DESIGNED TO IMPROVE BED MOBILITY. PHYSICAL THERAPY TO INSTRUCT IN SAFE TRANSFERS WITH APPROPRIATE BODY MECHANICS AND EQUIPMENT. CLINICIAN TO EDUCATE PATIENT / CAREGIVER IN FALL PREVENTION AND PROVIDE INTERVENTIONS TO REDUCE FALL RISK AND ENHANCE HOME SAFETY PHYSICAL THERAPY TO PROVIDE BALANCE TRAINING TO REDUCE FALL RISK DURING FUNCTIONAL ACTIVITIES. PHYSICAL THERAPY TO EVALUATE GAIT AND PROVIDE GAIT TRAINING USING APPROPRIATE ASSISTIVE DEVICE NEEDED TO ENSURE PATIENT SAFETY. PATIENT/CAREGIVER WILL BE KNOWLEDGEABLE OF DISCHARGE PLANS AND WILL DEMONSTRATE/PROVIDE EDUCATION AND RESOURCES NEEDED TO MAINTAIN HEALTH. [code = PHYSICAL THERAPIST TO EVALUATE/ASSESS AND DEVELOP PHYSICAL THERAPY PLAN OF CARE TO BE SIGNED BY THE PHYSICIAN. TEACH AND MONITOR PATIENT/CAREGIVER ABILITY TO SAFELY ADMINISTER MEDICATIONS. PHONE TOUCHPOINTS CAN BE PERFORMED NEEDED TO SUPPLEMENT THE PLAN OF CARE. PHYSICAL THERAPY TO ESTABLISH/UPGRADE HOME EXERCISE PROGRAM AND PROVIDE THERAPEUTIC EXERCISES AND/OR MANUAL THERAPY TECHNIQUES DESIGNED TO RESTORE FUNCTIONAL STRENGTH AND ROM. PHYSICAL THERAPY TO PROVIDE TECHNIQUES DESIGNED TO IMPROVE BED MOBILITY. PHYSICAL THERAPY TO INSTRUCT IN SAFE TRANSFERS WITH APPROPRIATE BODY MECHANICS AND EQUIPMENT. CLINICIAN TO EDUCATE PATIENT / CAREGIVER IN FALL PREVENTION AND PROVIDE INTERVENTIONS TO REDUCE FALL RISK AND ENHANCE HOME SAFETY PHYSICAL THERAPY TO PROVIDE BALANCE TRAINING TO REDUCE FALL RISK DURING FUNCTIONAL ACTIVITIES. PHYSICAL THERAPY TO EVALUATE GAIT AND PROVIDE GAIT TRAINING USING APPROPRIATE ASSISTIVE DEVICE NEEDED TO ENSURE PATIENT SAFETY. PATIENT/CAREGIVER WILL BE KNOWLEDGEABLE OF DISCHARGE PLANS AND WILL DEMONSTRATE/PROVIDE EDUCATION AND RESOURCES NEEDED TO MAINTAIN HEALTH.] Goal 2025-02-16 Patient Goal - TO [facility]AL [facility] Goal Provider Goal - PATIENT / CAREGIVER WILL VERBALIZE / DEMONSTRATE ADEQUATE KNOWLEDGE OF ENDOCRINE STATUS. GOAL TO BE MET BY 01/14/25 Goal Provider Goal - PATIENT/CAREGIVER WILL VERBALIZE/DEMONSTRATE ABILITY TO CARE FOR HYPERTENSION. GOAL TO BE MET BY 01/17/25 Goal Provider Goal - GASTROINTESTINAL STATUS WILL BE EVALUATED AND EXACERBATIONS IDENTIFIED WITH INTERVENTIONS IMPLEMENTED TO MINIMIZE COMPLICATIONS. PATIENT / CAREGIVER WILL VERBALIZE/DEMONSTRATE ABILITY TO CARE FOR ALTERED GASTROINTESTINAL STATUS. GOAL TO BE MET BY 01/19/25 Goal Provider Goal - PATIENT/CAREGIVER WILL VERBALIZE MEASURES TO COPE WITH DEPRESSION AND STATE SIGNS AND SYMPTOMS TO REPORT TO PHYSICIAN BY 01/11/25 Goal Provider Goal - INCREASED PAIN OR PAIN CONTROL MEASURES WILL BE IDENTIFIED AND PROMPTLY REPORTED TO THE PHYSICIAN. PATIENT / CAREGIVER WILL VERBALIZE UNDERSTANDING OF PHARMACOLOGIC AND NON-PHARMACOLOGIC PAIN CONTROL MEASURES. GOAL TO BE MET BY 01/15/25 Goal Provider Goal - PATIENT/CAREGIVER DEMONSTRATES ABILITY TO ADHERE TO MEDICATION REGIMEN. GOAL TO BE MET BY 01/17/25 Goal Provider Goal - PATIENT / CAREGIVER WILL VERBALIZE/DEMONSTRATE APPROPRIATE METHODS TO CONTROL/LOSE WEIGHT. GOAL TO BE MET BY 01/16/25 Goal Provider Goal - CHANGES IN SKIN INTEGRITY STATUS WILL BE IDENTIFIED AND REPORTED TO THE PHYSICIAN FOR PROMPT INTERVENTION. PATIENT / CAREGIVER WILL VERBALIZE/DEMONSTRATE ADEQUATE KNOWLEDGE OF INTEGUMENTARY STATUS AND APPROPRIATE MEASURES TO PROMOTE SKIN INTEGRITY AND PREVENT INJURY. GOAL TO BE MET BY 01/13/25 Goal Provider Goal - PATIENT / CAREGIVER WILL VERBALIZE / DEMONSTRATE ABILITY TO PERFORM WOUND CARE. WOUND STATUS WILL IMPROVE EVIDENCED BY A DECREASE IN SIZE, DRAINAGE, ABSENCE OF INFECTION, AND DECREASED PAIN. GOAL TO BE MET BY 01/13/25 Goal Provider Goal - GOALS TO BE ESTABLISHED BY PHYSICAL THERAPIST DURING EVALUATION VISIT Goal Provider Goal - GOALS TO BE ESTABLISHED BY OCCUPATIONAL THERAPIST DURING EVALUATION VISIT Goal Provider Goal - A PLAN OF CARE WILL BE ESTABLISHED THAT MEETS ALL PATIENT'S NURSING NEEDS AND COUNTERSIGNED BY PHYSICIAN. Goal Provider Goal - CARDIOVASCULAR EXACERBATIONS WILL BE IDENTIFIED PROMPTLY AND INTERVENTIONS INITIATED TO MINIMIZE ASSOCIATED RISK. PATIENT/CAREGIVER WILL VERBALIZE/DEMONSTRATE ABILITY TO CARE FOR ALTERED CARDIOVASCULAR STATUS. GOALS TO BE MET BY 03/06/25 Goal Provider Goal - PATIENT AND/OR CAREGIVER WILL BE IN AGREEMENT WITH DISCHARGE PLANS AND WILL VERBALIZE HAVING RESOURCES AND KNOWLEDGE TO MAINTAIN HEALTH. Goal Provider Goal - PATIENT WILL REMAIN SAFE AND NEEDS WILL BE MET BY COLLABORATING ON POC AND COMMUNICATING CHANGES IN POC AND CHANGES AFFECTING DISCHARGE PLAN WITH PATIENT, CAREGIVER, RECEIVING PHYSICIAN/HEALTH CARE PROVIDER, AND OTHER PHYSICIANS WRITING ORDERS ON THE POC THROUGHOUT CERTIFICATION PERIOD. Goal Provider Goal - PATIENT/CAREGIVER WILL VERBALIZE AND DEMONSTRATE HEALTHY BEHAVIORS AND STRATEGIES TO MANAGE ANXIETY. GOAL TO BE MET BY 01/20/25 Goal Provider Goal - PATIENT TO DEMONSTRATE REDUCED FALL RISK AND IMPROVE HOME SAFETY BY 01/12/25 Goal Provider Goal - PATIENT/CAREGIVER VERBALIZES AND DEMONSTRATES ABILITY FOR THE PATIENT TO FUNCTION WITHIN THEIR COMMUNITY AND TO PARTICIPATE IN THE DEVELOPMENT AND IMPLEMENTATION OF THEIR CARE PLAN THROUGHOUT THE CERTIFICATION PERIOD. Goal Provider Goal - A PHYSICAL THERAPY PLAN OF CARE WILL BE ORDERED BY PHYSICIAN AND PROVIDED BY PHYSICAL THERAPY. ALL GOALS TO BE MET BY END OF CURRENTLY APPROVED PLAN OF CARE. PATIENT WILL DEMONSTRATE IMPROVED FUNCTION IN RESPONSE TO SPECIFIC EXERCISE(S) AND/OR MANUAL THERAPY TECHNIQUE(S), EVIDENCED BY INCREASED INDEPENDENCE IN ACTIVITIES OF DAILY LIVING. GOAL TO BE MET BY 02 27 25 PATIENT WILL DEMONSTRATE IMPROVED BED MOBILITY. GOAL TO BE MET BY 02 27 25 PATIENT / CAREGIVER WILL DEMONSTRATE SAFE TRANSFERS USING APPROPRIATE BODY MECHANICS AND EQUIPMENT. GOAL TO BE MET BY 02 27 25 PATIENT TO DEMONSTRATE REDUCED FALL RISK AND IMPROVE HOME SAFETY BY 02 24 25 PATIENT/CAREGIVER WILL DEMONSTRATE DECREASED FALL RISK DURING FUNCTIONAL ACTIVITIES. GOAL TO BE MET BY 02 24 25 PATIENT WILL DEMONSTRATE SAFE GAIT TECHNIQUE WITH ASSISTIVE DEVICES NEEDED TO MINIMIZE RISK OF INJURY. GOAL TO BE MET BY 02 24 25 PATIENT AND/OR CAREGIVER WILL BE IN AGREEMENT WITH DISCHARGE PLANS AND WILL VERBALIZE HAVING RESOURCES AND KNOWLEDGE TO MAINTAIN HEALTH. Reason for Visit MODERATE ASSIST WITH TRANSFER/AMBULATION/ADLS Encounters Start Date/Time End Date/Time Encounter Type Admission Type Attending [facility] Care Department Encounter ID Discharge Date Discharge Status Discharge Condition Discharge Reason Percent Goals Met 2024-12-22 00:00:00 2025-02-16 00:00:00 Outpatient NEW ADMISSION [facility] [id number] 00:00:00 DISCHARGE TO HOME OR SELF CARE MODERATE ASSIST WITH TRANSFER/A MBULATION/ ADLS PER CLIENT REQUEST 79.66
--- OUTSIDE RECORDS SUMMARY | 2025-02-15 20:00 | XMS_ITS | Clinical Summary ---
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) USE OF INSULIN Active 12-22 00:00: 00 ANNUAL GREENHOUSE MANAGER (CURRENT) USE OF ANTICOAGULAN TS Active [...] 325 mg tablet 12-22 00:00: 00 Yes [id number] PAIN 2 tablet EVERY 6 HOURS 2 tablet EVERY 6 HOURS (route: oral) Med Classific ation: Analgesic , Anti-infl ammatory or Antipyret ic atorvastati n 40 mg tablet 12-22 00:00: 00 Yes [id number] CHOLESTEROL 1 tablet DAILY 1 tablet DAILY (route: oral) Med Classific ation: Cardiovas cular Therapy Agents Bactrim DS 800 mg-160 mg tablet 12-22 00:00: 00 12-27 23:59 :00 No [id number] INFECTION 2 tablet 2 TIMES DAILY 2 tablet 2 TIMES DAILY (route: oral) Med Classific ation: Anti-Infe ctive Agents bisoprolol fumarate 5 mg tablet 12-22 00:00: 00 Yes [id number] HTN 1 tablet 2 TIMES DAILY 1 tablet 2 TIMES DAILY (route: oral) Med Classific ation: Cardiovas cular Therapy Agents diltiazem 120 mg tablet 12-22 00:00: 00 Yes [id number] HYPERTENSIO N 1 tablet DAILY 1 tablet DAILY (route: oral) Med Classific ation: Cardiovas cular Therapy Agents gabapentin 600 mg tablet 12-22 00:00: 00 Yes [id number] PAIN 1 tablet 3 TIMES DAILY 1 tablet 3 TIMES DAILY (route: oral) Med Classific ation: Central Nervous System Agents lorazepam 1 mg tablet 12-22 00:00: 00 Yes [id number] ANXIETY 1 tablet DAILY 1 tablet DAILY (route: oral) Med Classific ation: Central Nervous System Agents metformin 1,000 mg tablet 12-22 00:00: 00 Yes [id number] DM2 1 tablet 2 TIMES DAILY 1 tablet 2 TIMES DAILY (route: oral) Med Classific ation: Endocrine naloxone 4 mg/actuatio n nasal spray 12-22 00:00: 00 Yes [id number] NARCOTIC OVERDOSE 1 spray DIRECTED 1 spray DIRECTED (route: nasal) Med Classific ation: Antidotes and other Reversal Agents Novolog Mix 70-30 U-100 Insulin 100 unit/mL subcutaneou s solution 12-22 00:00: 00 Yes [id number] DM2 90 unit 3 TIMES DAILY 90 unit 3 TIMES DAILY (route: subcutaneo us) Med Classific ation: Endocrine omeprazole 40 mg capsule,del ayed release 12-22 00:00: 00 Yes [id number] GERD 1 capsule 2 TIMES DAILY 1 capsule 2 TIMES DAILY (route: oral) Med Classific ation: Gastroint estinal Therapy Agents ondansetron 4 mg disintegrat ing tablet 12-22 00:00: 00 Yes [id number] NAUSEA 1 tablet EVERY 6 HOURS 1 tablet EVERY 6 HOURS (route: oral) Med Classific ation: Gastroint estinal Therapy Agents oxycodone 5 mg tablet 12-22 00:00: 00 Yes [id number] SEVERE PAIN 1 tablet EVERY 6 HOURS 1 tablet EVERY 6 HOURS (route: oral) Med Classific ation: Analgesic , Anti-infl ammatory or Antipyret ic spironolact one 50 mg tablet 12-22 00:00: 00 Yes [id number] BLOOD PRESSURE 1 tablet DAILY 1 tablet DAILY (route: oral) Med Classific ation: Cardiovas cular Therapy Agents torsemide 20 mg tablet 12-22 00:00: 00 Yes [id number] FLUID OVERLOAD 1 tablet DAILY 1 tablet DAILY (route: oral) Med Classific ation: Cardiovas cular Therapy Agents trazodone 100 mg tablet 12-22 00:00: 00 Yes [id number] SLEEP 1 tablet EVERY PM 1 tablet EVERY PM (route: oral) Med Classific ation: Central Nervous System Agents venlafaxine ER 150 mg capsule,ext ended release 24 hr 12-22 00:00: 00 Yes [id number] DEPRESSION 1 capsule DAILY 1 capsule DAILY (route: oral) Med Classific ation: Central Nervous System Agents Ventolin HFA 90 mcg/actuati on aerosol inhaler 12-22 00:00: 00 Yes [id number] WHEEZING/ SOA 2 puff EVERY 6 HOURS 2 puff EVERY 6 HOURS (route: inhalation ) Med Classific ation: Respirato ry Therapy Agents Vraylar 3 mg capsule 12-22 00:00: 00 Yes [id number] DEPRESSION 1 capsule DAILY 1 capsule DAILY (route: oral) Med Classific ation: Central Nervous System Agents Xarelto 20 mg tablet 12-22 00:00: 00 Yes [id number] ANTICOAGULA NT 1 tablet DAILY 1 tablet DAILY (route: oral) Med Classific ation: Hematolog ical Agents nitrofurant oin 100 mg tablet 01-01 00:00: 00 01-08:59 :00 No [id number] ANTIBIOTIC 100 mg EVERY 12 HOURS 100 mg EVERY 12 HOURS (route: oral) Med Classific ation: Genitouri nary Therapy Bactrim DS 800 mg-160 mg tablet 01-12 00:00: 00 01-19 23:59 :00 No [id number] PROPHYLAXIS FOR RIGHT UPPER EXTREMITY WOUND INFECTION 1 tablet 2 TIMES DAILY 1 tablet 2 TIMES DAILY (route: oral) Med Classific ation: Anti-Infe ctive Agents Cavilon Durable Barrier 1.3 % topical cream 01-12 00:00: 00 Yes [id number] WOUND PROTECTANT Per instruc tions DAILY Per [...] End Date/Time Encounter Type Admission Type Attending [facility] Care Department Encounter ID Discharge Date Discharge Status Discharge Condition Discharge Reason Percent Goals Met 2024-12-22 00:00:00 2025-02-16 00:00:00 Outpatient NEW ADMISSION [facility] [id number] 2311-08-07 00:00:00 DISCHARGE TO HOME OR SELF CARE MODERATE ASSIST WITH TRANSFER/A MBULATION/ ADLS PER CLIENT REQUEST 79.66
[2025-04-08 09:20] VITALS: BP 165/94; PULSE 75; O2SAT 96
--- NOTE | 2025-04-08 09:25 | PC.NURSE ---
Upon bladder scanning pt there was 278ml urine in his bladder. Pt attempted to urinate prior to scan and was unable to produce any urine.
[2025-04-08 09:27] VITALS: BP 165/94; PULSE 79; RESP 16; TEMP 36.6; O2SAT 98; BMI 77.3
--- OUTSIDE RECORDS SUMMARY | 2025-04-08 09:28 | XMS_ITS | Clinical Summary ---
Author Organization [facility] Address [address] [place] [address] Phone Care Team Providers Care Staff Midwife/Apprenticeship Director Name Role Phone Allen RUSH, Emanuel Maurice Unavailable [phone] TRELL BECKWITH MD Unavailable [phone] PAWCARL DPZI Blackman Unavailable [phone] Petty Frost PA-C Primary Care Provider [phone] Reason for Visit and Chief Complaint Epidural Steroid Injection Problems Includes: Problems addressed during this encounter and other active Problems All Visits Onset Date Resolved Date Provider Condition S tatus Lower Back Pain 04/22/2019 Emanuel Villa MD Act margarito Last Documented On 9 11:03AM ; [facility] Bone Pain in the Heel 06/27/2014 Randy Booth DPM Active Last Documented On 4 1:06PM ; [facility] Plan of Treatment No Plan of Treatment Recorded Assessments Includes: Assessments from this encounter No Assessments Recorded Medical Equipment - Implanted Devices Includes: Current Devices No Medical Equipment Recorded Medications Includes: Medications discussed during this encounter and other current Medications Current Medications (continue as prescribed) Xarelto 20 MG Oral Tablet 11/16/2021 Provider: Diagnosis: Last Documented On 2 3:17PM By Estrellita Vázquez ; [facility] Metoclopramide HCl 10 MG Oral Tablet 04/21/2019 Prov ider: Chintan Aguayo MD Diagnosis: Last Documented On 9 4:08PM By Daniel Mo ; [facility] Atorvastatin Calcium 40 MG Oral Tablet 04/21/2019 Pr ovider: Diagnosis: Last Documented On 9 4:08PM By Daniel Mo ; [facility] Furosemide 40 MG Oral Tablet 04/21/2019 Provider: Diagnosis: Last Documented On 9 4:09PM By Daniel Mo ; [facility] Potassium Chloride 20 MEQ Oral Packet 04/21/2019 Pro vider: Diagnosis: Last Documented On 9 4:09PM By Daniel Mo ; [facility] Omeprazole 40 MG Oral Capsul e Delayed Release 04/21/2019 Provider: Chintan Aguayo MD Diagnosis: Last Documented On 9 4:10PM By Daniel Mo ; [facility] ARIPiprazole 5 MG Oral Tablet 04/14/2019 Provider: Diagnosis: Last Documented On 9 4:10PM By Daniel Mo ; [facility] Venlafaxine HCl ER 150 MG Or al Capsule Extended Release 24 Hour 03/31/2019 Provider: Diagnosis: Last Documented On 9 4:10PM By Daniel Mo ; [facility] metFORMIN HCl 1000 MG Oral Tablet 03/10/2019 Provide r: Chintan Aguayo MD Diagnosis: Last Documented On 9 4:10PM By Daniel Mo ; [facility] Lisinopril-hydroCHLOROthiazi de 20-25 MG Oral Tablet 03/04/2019 Provider: TRELL BECKWITH MD Diagnosis: Last Documented On 9 4:10PM By Daniel Mo ; [facility] Medications Administered Includes: Administered Medications from [...] Subscriber Relationship Effect margarito Dates 1 - [facility] [id number] Gonzalo Ng 03/13/2022 - Unknown Clinical Notes Includes: Clinical Notes from this encounter No Clinical Notes Recorded
--- OUTSIDE RECORDS SUMMARY | 2025-04-08 09:28 | XMS_ITS | Clinical Summary ---
Author Organization [employer] ([place], [place], [place], [place]) Address [address] [place] [address] Care Team Providers Care Clinical Outcomes Manager Name Role Phone Malcolm Hayward APRN Primary Care Provider [phone] Allergies No known active allergies Medications atorvastatin [...] 04/26/2020, 12/24/2016 Insurance MEDICARE PART A B /[facility] Care Teams Clinical Outcomes Manager Relationship Specialty Start Date End Date Malcolm Hayward APRN [address] [place] [address] PCP - General Nurse Practitioner 12/20/24
--- OUTSIDE RECORDS SUMMARY | 2025-04-08 09:28 | XMS_ITS ---
Care Plan - [facility], [facility] Created on: April 08, 2025 Gonzalo Russell : 1975 Sex: Male Author Organization [facility] , [facility] Address [address] [place] [address] Phone Care Team Providers Care Miller Supervisor Name Role Phone Allen RUSH, Emanuel Maurice Unavailable [phone] TRELL BECKWITH MD Unavailable [phone] ZI SUE DPM Unavailable [phone] Petty Frost PA-C Primary Care Provider [phone]
--- OUTSIDE RECORDS SUMMARY | 2025-04-08 09:28 | XMS_ITS | Clinical Summary ---
Author Organization [facility] , [facility] Address [address] [facility] [place] [address] Phone Care Team Providers Care Curing Pickling Packer Name Role Phone Allen RUSH, Emanuel Maurice Unavailable [phone] TRELL BECKWITH MD Unavailable [phone] PAWCARL DPMZI Unavailable [phone] Petty Frost PA-C Primary Care Provider +1 [...] margarito Last Documented On 9 11:03AM ; [facility] Past Visits Onset Date Resolved Date Provider Condition Status Bone Pain in the Heel 06/27/2014 Randy Booth DPM Active Last Documented On 4 1:06PM ; [facility] Plan of Treatment - Weight loss diet - Last Documented On 11/09/2019 12:13PM ; [facility] Patient was seen by myself Chintan [...] Documented On 11/09/2019 12:13PM ; [facility] Instructions to patient Instructions for patient See PCP for BP and Weight Last Documented On 9 4:12PM ; [facility] Lose weight Last Documented On 9 11:03AM ; [facility] Assessments Includes: Assessments from this encounter Findings Low back pain lumbar DDD - Last Documented On 11/09/2019 12:13PM ; [facility] Instructions Includes: Instructions from this encounter Instructions to patient Instructions for patient See PCP for BP and Weight Last Documented On 9 4:12PM ; [facility] Lose weight Last Documented On 9 11:03AM ; [facility] Medical Equipment - Implanted Devices Includes: Current Devices No Medical Equipment Recorded Medications Includes: Medications discussed during this encounter and other current Medications Discontinued / Stopped on this date on 06/27/2014 Lexapro 10 MG OR TABS Provider: Diagnosis: Last Documented On 9 4:08PM By Daniel Mo ; [facility] Lisinopril 10 MG OR TABS Provider: Diagnosis: Last Documented On 9 4:08PM By Daniel Mo ; [facility], [facility] metFORMIN HCl 500 MG TABS Provider: Diagnosis: Last Documented On 9 4:08PM By Daniel Mo ; [facility], [facility] Dexilant 30 MG OR CPDR Provider: Diagnosis: Last Documented On 9 4:08PM By Daniel Mo ; [facility], [facility] Current Medications (continue as prescribed) Xarelto 20 MG Oral Tablet 11/16/2021 Provider: Diagnosis: Last Documented On 2 3:17PM By Estrellita Vázquez ; [facility] Metoclopramide HCl 10 MG Oral Tablet 04/21/2019 Prov ider: Chintan Aguayo MD Diagnosis: Last Documented On 9 4:08PM By Daniel Mo ; [facility], [facility] Atorvastatin Calcium 40 MG Oral Tablet 04/21/2019 Pr ovider: Diagnosis: Last Documented On 9 4:08PM By Daniel Mo ; [facility] Furosemide 40 MG Oral Tablet 04/21/2019 Provider: Diagnosis: Last Documented On 9 4:09PM By Daniel Mo ; [facility] Potassium Chloride 20 MEQ Oral Packet 04/21/2019 Pro vider: Diagnosis: Last Documented On 9 4:09PM By Daniel Mo ; [facility] Omeprazole 40 MG Oral Capsul e Delayed Release 04/21/2019 Provider: Chintan Aguayo MD Diagnosis: Last Documented On 9 4:10PM By Daniel Mo ; [facility] ARIPiprazole 5 MG Oral Tablet 04/14/2019 Provider: Diagnosis: Last Documented On 9 4:10PM By Daniel Mo ; [facility] Venlafaxine HCl ER 150 MG Or al Capsule Extended Release 24 Hour 03/31/2019 Provider: Diagnosis: Last Documented On 9 4:10PM By Daniel Mo ; [facility] metFORMIN HCl 1000 MG Oral Tablet 03/10/2019 Provide r: Chintan Aguayo MD Diagnosis: Last Documented On 9 4:10PM By Daniel Mo ; [facility] Lisinopril-hydroCHLOROthiazi de 20-25 MG Oral Tablet 03/04/2019 Provider: TRELL BECKWITH MD Diagnosis: Last Documented On 9 4:10PM By Daniel Mo ; [facility] Past Medications on file Diclofenac Potassium 50 MG O R TABS 06/27/2014 - 07/27/2014 Provider: Randy DUMONT Diagnosis: be Last Documented On 4 1:34PM By Isa Avendano ; [facility] Medications Administered Includes: Administered Medications from this encounter No Administered Medications Recorded Vital Signs Includes: Vital Signs from this encounter Vital Name 04/22/2019 11:37A Blood Pressure Sitting R 150/90 Pulse Rate-Sitting (bpm) 94 Height (in) 73 Weight (lb) 512 Body Mass Index (kg/m2) 67.5 Body Surface Area (m2) 3.2 Pain Level 8 Note: lmp Last Documented: On 04/25/2019 11:20A M ; [facility] Results Includes: Results discussed during this encounter No Results Recorded For Specified Dates History of Present Illness Includes: History of Present Illness from this encounter SHEILA Russell is a 43 year old male. - Allergy list reviewed - Medication list reviewed with patient - Medication reconciliation performed - Previous history of new onset pain 2017 - Pain is constant (100% of the [...] has had injections with pain management in [facility] as well as here in [place] he says the one in [place] did not do much for him but he has some sort of injection here in [place] which did help. he is not complaining of any numbness or tingling about her bladder problems Social History Description Last Updated Tobacco use 06/27/2014 Last Documented On 9 11:03AM ; [facility] Smoking status : Current everyday smoker 06/27/2014 Last Documented On 9 11:03AM ; [facility] Alcohol use 06/27/2014 Last Documented On 9 11:03AM ; [facility] Current smoker 06/27/2014 Last Documented On 9 11:03AM ; [facility], [facility] No caffeine use 06/27/2014 Last Documented On 9 11:03AM ; [facility], [facility] No recent change in diet 06/27/2014 Last Documented On 9 11:03AM ; [facility], [facility] Not exercising regularly 06/27/2014 Last Documented On 9 11:03AM ; [facility], [facility] Not using drugs 06/27/2014 Last Documented On 9 11:03AM ; [facility], [facility] Procedures and Surgical History Includes: Procedures from this encounter Procedures Code Diagnosis Performing Provider Service Location Service Date pharmacologic therapy for cessation of tobacco use 4001F Last Documented On 9 11:03AM ; [facility], [facility] Clinical summary provided to patient Last Documented On 9 4:12PM ; [facility] Medical History Includes: Medical History addressed during this encounter Description Last Updated Intermittent hypertension 04/22/2019 Last Documented On 0 12:13PM ; [facility] History of depression 04/22/2019 Last Documented On 0 12:13PM ; [facility] gall bladder, wisdom teeth 06/27/2014 Last Documented On 9 11:03AM ; [facility] Arthritic joint problems 06/27/2014 Last Documented On 9 11:03AM ; [facility] History of diabetes mellitus 06/27/2014 Last Documented On 9 11:03AM ; [facility] History of gastric ulcer 06/27/2014 Last Documented On 9 11:03AM ; [facility] Family History Includes: Family History addressed during this encounter Description Last Updated Family history of hypertension 9 Last Documented On 0 12:13PM ; [facility] non-contributory 06/27/2014 Last Documented On 9 11:03AM ; [facility], [facility] Review of Systems Includes: Review of [...] Specified Emanuel Villa MD [facility] 04/22/20 10:58AM 12:17PM Insurance Includes: Active Insurance Policies Plan Name Member ID Group # Subscriber Relationship Effect margarito Dates 1 - [facility] [id number] Gonzalo Russell Self 03/13/2022 - Unknown Clinical Notes Includes: Clinical Notes from this encounter No Clinical Notes Recorded
--- OUTSIDE RECORDS SUMMARY | 2025-04-08 09:28 | XMS_ITS | Referral Summary ---
Author Organization [employer] ([place], [place], [place], [place]) Address [address] [place] [address] Care Team Providers Care Advertising Production Manager Name Role Phone Malcolm Hayward APRN Primary Care Provider [phone] Allergies No known active allergies Medications atorvastatin [...] A B BLUE CROSS/BLUE SHIELD Care Teams Advertising Production Manager Relationship Specialty Start Date End Date Malcolm Hayward, ADALGISA [address] [place] [address] PCP - General Nurse Practitioner 12/20/24
--- OUTSIDE RECORDS SUMMARY | 2025-04-08 09:28 | XMS_ITS | Clinical Summary ---
Author Organization [facility] Address [address] [place] [address] Phone Care Team Providers Care Dried Yeast Supervisor Name Role Phone Allen RUSH, Emanuel Maurice Unavailable [phone] TRELL BECKWITH MD Unavailable [phone] PAWCARL DPZI Blackman Unavailable [phone] Petty Frost PA-C Primary Care Provider +1 [...] Documented On 9 11:03AM ; [facility] Past Visits Onset Date Resolved Date Provider Condition Status Bone Pain in the Heel 06/27/2014 Randy Booth DPM Active Last Documented On 4 1:06PM ; [facility] Plan of Treatment patient was seen by myself and Dr. Allen Foote PA-C. Patient will follow up 4 weeks after he tries interspinous process injection at L3-L4 no surgery would be needed for him - Last Documented On 11/02/2022 1:37PM ; [facility], [facility] Instructions to patient Instructions for patient See PCP for BP and Weight Last Documented On 2 2:52PM ; [facility] Intervention and counseling on cessation of tobacco use Last Documented On 2 3:18PM ; [facility], [facility] Lose weight Last Documented On 2 2:52PM ; [facility], [facility] Assessments Includes: Assessments from this encounter Findings L3-L4 spinous process edema - Last Documented On 11/02/2022 1:37PM ; [facility], [facility] Instructions Includes: Instructions from this encounter Instructions to patient Instructions for patient See PCP for BP and Weight Last Documented On 2 2:52PM ; [facility], [facility] Intervention and counseling on cessation of tobacco use Last Documented On 2 3:18PM ; [facility], [facility] Lose weight Last Documented On 2 2:52PM ; [facility], [facility] Medical Equipment - Implanted Devices Includes: Current Devices No Medical Equipment Recorded Medications Includes: Medications discussed during this encounter and other current Medications Current Medications (continue as prescribed) Xarelto 20 MG Oral Tablet 11/16/2021 Provider: Diagnosis: Last Documented On 2 3:17PM By Estrellita Vázquez ; [facility], [facility] Metoclopramide HCl 10 MG Oral Tablet 04/21/2019 Prov ider: Chintan Aguayo MD Diagnosis: Last Documented On 9 4:08PM By Daniel Mo ; [facility] Atorvastatin Calcium 40 MG Oral Tablet 04/21/2019 Pr ovider: Diagnosis: Last Documented On 9 4:08PM By Daniel Mo ; [facility], [facility] Furosemide 40 MG Oral Tablet 04/21/2019 Provider: Diagnosis: Last Documented On 9 4:09PM By Daniel Mo ; [facility], [facility] Potassium Chloride 20 MEQ Oral Packet 04/21/2019 Pro vider: Diagnosis: Last Documented On 9 4:09PM By Daniel Mo ; [facility], [facility] Omeprazole 40 MG Oral Capsul e Delayed Release 04/21/2019 Provider: Chintan Aguayo MD Diagnosis: Last Documented On 9 4:10PM By Daniel Mo ; [facility] ARIPiprazole 5 MG Oral Tablet 04/14/2019 Provider: Diagnosis: Last Documented On 9 4:10PM By Daniel Mo ; [facility], [facility] Venlafaxine HCl ER 150 MG Or al Capsule Extended Release 24 Hour 03/31/2019 Provider: Diagnosis: Last Documented On 9 4:10PM By Daniel Mo ; [facility] metFORMIN HCl 1000 MG Oral Tablet 03/10/2019 Provide r: Chintan Aguayo MD Diagnosis: Last Documented On 9 4:10PM By Daniel Mo ; [facility], [facility] Lisinopril-hydroCHLOROthiazi de 20-25 MG Oral Tablet 03/04/2019 Provider: TRELL BECKWITH MD Diagnosis: Last Documented On 9 4:10PM By Daniel Mo ; [facility] Past Medications on file Diclofenac Potassium 50 MG O R TABS 06/27/2014 - 07/27/2014 Provider: Randy DUMONT Diagnosis: be Last Documented On 4 1:34PM By Isa Avendano ; [facility] Medications Administered Includes: Administered Medications from this encounter No Administered Medications Recorded Vital Signs Includes: Vital Signs from this encounter Vital Name 12/12/2021 02:53P Blood Pressure Sitting (mmHg) 142/92 Pulse Rate-Sitting (bpm) 89 Height (in) 72 Weight (lb) 498 Body Mass Index (kg/m2) 67.5 Body Surface Area (m2) 3.1 Note: mg Last Documented: On 12/12/2021 3:18PM ; [facility] Results Includes: Results discussed during this [...] Last Documented On 3 1:37PM ; [facility] Unemployed 12/12/2021 Last Documented On 3 1:37PM ; [facility] Tobacco use 06/27/2014 Last Documented On 2 2:52PM ; [facility], [facility] Smoking status : Current everyday smoker 06/27/2014 Last Documented On 2 2:52PM ; [facility] Alcohol use 06/27/2014 Last Documented On 2 2:52PM ; [facility] Current smoker 06/27/2014 Last Documented On 2 2:52PM ; [facility] No caffeine use 06/27/2014 Last Documented On 2 2:52PM ; [facility] No recent change in diet 06/27/2014 Last Documented On 2 2:52PM ; [facility] Not exercising regularly 06/27/2014 Last Documented On 2 2:52PM ; [facility] Not using drugs 06/27/2014 Last Documented On 2 2:52PM ; [facility] Procedures and Surgical History Includes: Procedures from this encounter Procedures Code Diagnosis Performing Provider Service L ocation Service Date intervention and counseling on cessation of tobacco use 4000F Last Documented On 2 3:18PM ; [facility] pharmacologic therapy for cessation of tobacco u se 4001F Last Documented On 2 2:52PM ; [facility] use of tobacco assessment performed 1000F Last Documented On 2 3:18PM ; [facility] no influenza immunization patient refuse d Last Documented On 2 3:18PM ; [facility] follow-up visit in one month with PCP fo r elevated BP Last Documented On 2 3:18PM ; [facility] Medical History Includes: Medical History addressed during this encounter Description Last Updated No recent immunization for flu 2 Last Documented On 3 1:37PM ; [facility] No recent immunization for pneumococcal pneumonia 12/12/2021 Last Documented On 3 1:37PM ; [facility] Intermittent hypertension 04/22/2019 Last Documented On 2 2:52PM ; [facility] History of depression 04/22/2019 Last Documented On 2 2:52PM ; [facility], [facility] gall bladder, wisdom teeth 06/27/2014 Last Documented On 2 2:52PM ; [facility], [facility] Arthritic joint problems 06/27/2014 Last Documented On 2 2:52PM ; [facility], [facility] History of diabetes mellitus 06/27/2014 Last Documented On 2 2:52PM ; [facility], [facility] History of gastric ulcer 06/27/2014 Last Documented On 2 2:52PM ; [facility], [facility] Family History Includes: Family History addressed during this encounter Description Last Updated Family history of hypertension Last Documented On 2 2:52PM ; [facility] non-contributory 06/27/2014 Last Documented On 2 2:52PM ; [facility] Review of Systems Includes: Review of [...] Time Diagnosis Follow Up Emanuel Villa MD [facility] 2 2:49PM 3:57PM Insurance Includes: Active Insurance Policies Plan Name Member ID Group # Subscriber Relationship Effect margarito Dates 1 - [facility] [id number] Gonzalo Russell Self 03/13/2022 - Unknown Clinical Notes Includes: Clinical Notes from this encounter * Progress note Date Encounter Last Documented by 12/12/2021 Follow Up Last documented on 11/02/2022; 1:37 PM, Emanuel Villa MD; [facility], [facility] Active Problems & Conditions - Bone Pain [...] Care Team - ZI CHANG DPM - Erp Technical Lead - TRELL BECKWITH MD
--- OUTSIDE RECORDS SUMMARY | 2025-04-08 09:28 | XMS_ITS | Encounter Summary ---
Author Organization [facility] Address [address] [id number] Care Team Providers Care Icer Machine Operator Name Role Phone Malcolm Hayward TIRE CENTER MANAGER Primary Care Provider [phone] Reason for Visit * Reason Comments Med Refill Encounter Details Date Type Department Care Team (Late st Contact Info) Description 07/07/2024 Refill [facility] [address] [place] [address] Mayra Torres PA [address] [address] Type 2 diabetes mellitus (CMS/HCC) [...] documented as of this encounter Care Teams Icer Machine Operator Relationship Specialty Start Date End Date Malcolm Hayward APRN [address] [place] [address] PCP - General 09/21/23 documented as of this encounter
--- OUTSIDE RECORDS SUMMARY | 2025-04-08 09:29 | XMS_ITS | Encounter Summary ---
Author Organization [facility] Address [address] [id number] Care Team Providers Care Network Systems Consultant Name Role Phone Malcolm Hayward LIBRARY CONSULTANT Primary Care Provider [phone] Reason for Visit * Reason Comments Med Refill Encounter Details Date Type Department Care Team (Late st Contact Info) Description 12/02/2024 Refill [facility] [address] [place] [address] Divine Archer, LIBRARY CONSULTANT [address] [facility] [address] [place] [address] Social History Tobacco Use Types [...] documented as of this encounter Care Teams Network Systems Consultant Relationship Specialty Start Date End Date Malcolm Hayward APRN [address] [place] [id number] PCP - General 09/21/23 documented as of this encounter
--- OUTSIDE RECORDS SUMMARY | 2025-04-08 09:29 | XMS_ITS | Clinical Summary ---
[facility] Address [address] [place] [address] Care Team Providers Care Internal Revenue Agent Name Role Phone Provider, No Known Primary [...] patient's age to complete this topic Insurance [facility] PPO Care Teams Internal Revenue Agent Relationship Specialty Start Date End Date Provider, No Known [facility] [place] [address] PCP - General 02/11/21
--- OUTSIDE RECORDS SUMMARY | 2025-04-08 09:29 | XMS_ITS | Clinical Summary ---
Author Organization [facility] , [facility] Address [address] [place] [address] Phone Care Team Providers Care Plastics Tooling Engineer Name Role Phone Allen RUSH, Emanuel Maurice Unavailable [phone] TRELL BECKWITH MD Unavailable [phone] PAWCARL DPZI Blackman Unavailable [phone] Petty Frost PA-C Primary Care Provider [phone] Reason for Visit and Chief Complaint Epidural Steroid Injection Problems Includes: Problems addressed during this encounter and other active Problems All Visits Onset Date Resolved Date Provider Condition S tatus Lower Back Pain 04/22/2019 Emanuel Villa MD Act margarito Last Documented On 9 11:03AM ; [facility] Bone Pain in the Heel 06/27/2014 Randy Booth DPM Active Last Documented On 4 1:06PM ; [facility] Plan of Treatment No Plan of Treatment Recorded Assessments Includes: Assessments from this encounter No Assessments Recorded Medical Equipment - Implanted Devices Includes: Current Devices No Medical Equipment Recorded Medications Includes: Medications discussed during this encounter and other current Medications Current Medications (continue as prescribed) Xarelto 20 MG Oral Tablet 11/16/2021 Provider: Diagnosis: Last Documented On 2 3:17PM By Estrellita Vázquez ; [facility] Metoclopramide HCl 10 MG Oral Tablet 04/21/2019 Prov ider: Chintan Aguayo MD Diagnosis: Last Documented On 9 4:08PM By Daniel Mo ; [facility] Atorvastatin Calcium 40 MG Oral Tablet 04/21/2019 Pr ovider: Diagnosis: Last Documented On 9 4:08PM By Daniel Mo ; [facility] Furosemide 40 MG Oral Tablet 04/21/2019 Provider: Diagnosis: Last Documented On 9 4:09PM By Daniel Mo ; [facility] Potassium Chloride 20 MEQ Oral Packet 04/21/2019 Pro vider: Diagnosis: Last Documented On 9 4:09PM By Daniel Mo ; [facility] Omeprazole 40 MG Oral Capsul e Delayed Release 04/21/2019 Provider: Chintan Aguayo MD Diagnosis: Last Documented On 9 4:10PM By Daniel Mo ; [facility] ARIPiprazole 5 MG Oral Tablet 04/14/2019 Provider: Diagnosis: Last Documented On 9 4:10PM By Daniel Mo ; [facility] Venlafaxine HCl ER 150 MG Or al Capsule Extended Release 24 Hour 03/31/2019 Provider: Diagnosis: Last Documented On 9 4:10PM By Daniel Mo ; [facility] metFORMIN HCl 1000 MG Oral Tablet 03/10/2019 Provide r: Chintan Aguayo MD Diagnosis: Last Documented On 9 4:10PM By Daniel Mo ; [facility] Lisinopril-hydroCHLOROthiazi de 20-25 MG Oral Tablet 03/04/2019 Provider: TRELL BECKWITH MD Diagnosis: Last Documented On 9 4:10PM By Daniel Mo ; [facility] Medications Administered Includes: Administered Medications from [...] Diagnosis Epidural Steroid Injection Emanuel Villa MD [facility] 03/26/20 22 11:04AM 11:54AM Insurance Includes: Active Insurance Policies Plan Name Member ID Group # Subscriber Relationship Effect margarito Dates 1 - [facility] [id number] Gonzalo Ng 03/13/2022 - Unknown Clinical Notes Includes: Clinical Notes from this encounter No Clinical Notes Recorded
--- OUTSIDE RECORDS SUMMARY | 2025-04-08 09:29 | XMS_ITS | Encounter Summary ---
Author Organization Healthcare Address [address] [id number] Care Team Providers Care Terrazzo Mechanic Helper Name Role Phone Malcolm Hayward ADALGISA Primary Care Provider [phone] Reason for Visit * Reason Onset Date Comments Med Refill 02/27/2025 Encounter Details Date Type Department Care Team (Late st Contact Info) Description 02/27/2025 Refill [facility] Endocrinology [address] [place] [address] Iveth Hurd Social History Tobacco [...] were you homeless or living in a usp (including now)? No 12/16/2024 Utilities Answer Date [...] documented as of this encounter Care Teams Terrazzo Mechanic Helper Relationship Specialty Start Date End Date Malcolm Hayward APRN [address] [place] [address] [place] [address] PCP - General 09/21/23 documented as of this encounter
--- OUTSIDE RECORDS SUMMARY | 2025-04-08 09:29 | XMS_ITS | Clinical Summary ---
Author Organization [facility] , [facility] Address [address] [place] [address] Phone Care Team Providers Care Soft Work Wrapper Examiner Name Role Phone Allen RUSH, Emanuel Maurice Unavailable [phone] TRELL BECKWITH MD Unavailable [phone] PAWCARL DPZI Blackman Unavailable [phone] Petty Frost PA-C Primary Care Provider [phone] Reason for Visit and Chief Complaint Epidural Steroid Injection Problems Includes: Problems addressed during this encounter and other active Problems All Visits Onset Date Resolved Date Provider Condition S tatus Lower Back Pain 04/22/2019 Emanuel Villa MD Act margarito Last Documented On 9 11:03AM ; [facility] Bone Pain in the Heel 06/27/2014 Randy Booth DPM Active Last Documented On 4 1:06PM ; [facility] Plan of Treatment No Plan of Treatment Recorded Assessments Includes: Assessments from this encounter No Assessments Recorded Medical Equipment - Implanted Devices Includes: Current Devices No Medical Equipment Recorded Medications Includes: Medications discussed during this encounter and other current Medications Current Medications (continue as prescribed) Xarelto 20 MG Oral Tablet 11/16/2021 Provider: Diagnosis: Last Documented On 2 3:17PM By Estrellita Vázquez ; [facility] Metoclopramide HCl 10 MG Oral Tablet 04/21/2019 Prov ider: Chintan Aguayo MD Diagnosis: Last Documented On 9 4:08PM By Daniel Mo ; [facility] Atorvastatin Calcium 40 MG Oral Tablet 04/21/2019 Pr ovider: Diagnosis: Last Documented On 9 4:08PM By Daniel Mo ; [facility] Furosemide 40 MG Oral Tablet 04/21/2019 Provider: Diagnosis: Last Documented On 9 4:09PM By Daniel Mo ; [facility] Potassium Chloride 20 MEQ Oral Packet 04/21/2019 Pro vider: Diagnosis: Last Documented On 9 4:09PM By Daniel Mo ; [facility] Omeprazole 40 MG Oral Capsul e Delayed Release 04/21/2019 Provider: Chintan Aguayo MD Diagnosis: Last Documented On 9 4:10PM By Daniel Mo ; [facility] ARIPiprazole 5 MG Oral Tablet 04/14/2019 Provider: Diagnosis: Last Documented On 9 4:10PM By Daniel Mo ; [facility] Venlafaxine HCl ER 150 MG Or al Capsule Extended Release 24 Hour 03/31/2019 Provider: Diagnosis: Last Documented On 9 4:10PM By Daniel Mo ; [facility] metFORMIN HCl 1000 MG Oral Tablet 03/10/2019 Provide r: Chintan Aguayo MD Diagnosis: Last Documented On 9 4:10PM By Daniel Mo ; [facility] Lisinopril-hydroCHLOROthiazi de 20-25 MG Oral Tablet 03/04/2019 Provider: TRELL BECKWITH MD Diagnosis: Last Documented On 9 4:10PM By Daniel Mo ; [facility] Medications Administered Includes: Administered Medications from [...] Effect margarito Dates 1 - [facility] [id number] Gonzalo Ng 03/13/2022 - Unknown Clinical Notes Includes: Clinical Notes from this encounter No Clinical Notes Recorded
--- OUTSIDE RECORDS SUMMARY | 2025-04-08 09:29 | XMS_ITS | Encounter Summary ---
Author Organization Healthcare Address [address] [id number] Care Team Providers Care Physical Therapy Manager Name Role Phone Malcolm Hayward RETARDER OPERATOR Primary Care Provider [phone] Encounter Details Date Type Department Care Team (Late st Contact Info) Description 02/27[facility] [address] [place] [address] Divine Archer, RETARDER OPERATOR [address] [facility] [address] [place] [address] Social History Tobacco Use Types [...] any time in the past 12 m [facility], were you homeless or living in [...] documented as of this encounter Care Teams Physical Therapy Manager Relationship Specialty Start Date End Date Malcolm Hayward APRN [address] [place] [address] PCP - General 09/21/23 documented as of this encounter
--- OUTSIDE RECORDS SUMMARY | 2025-04-08 09:29 | XMS_ITS ---
Author Organization [facility] Address [address] [place] [address] Phone Care Team Providers Care Vp Clinical Research Name Role Phone Allen RUSH, Emanuel Maurice Unavailable [phone] TRELL BECKWITH MD Unavailable [phone] PAWT DPYehuda, ZI Unavailable [phone] Petty Frost PA-C Primary Care Provider [phone] Problems Includes: Active, inactive, and resolved Problems All Visits Onset Date Resolved Date Provider Condition S tatus Lower Back Pain 04/22/2019 Emanuel Villa MD Act margarito Last Documented On 9 11:03AM ; [facility] Bone Pain in the Heel 06/27/2014 Randy Booth DPM Active Last Documented On 4 1:06PM ; [facility] Plan of Treatment Findings Encounter Date Ordered weight loss diet Physician Specified [facility] Emanuel Villa MD 04/22/2019 Last Documented On 0 12:13PM ; [facility] Ordered weight loss diet NEW PATIENT with Randy Booth DPM 06/27/2014 Last Documented On 4 1:30PM ; [facility] Instructions to patient Instructions for patient See PCP for BP and Weight Last Documented On 2 2:52PM ; [facility] Intervention and counseling on cessation of tobacco use Last Documented On 2 3:18PM ; [facility] Lose weight Last Documented On 2 2:52PM [...] 2 3:17PM By Estrellita Vázquez ; [facility] Metoclopramide HCl 10 MG Oral Tablet 04/21/2019 Prov ider: Chintan Aguayo MD Diagnosis: Last Documented On 9 4:08PM By Daniel [facility] Atorvastatin Calcium 40 MG Oral Tablet 04/21/2019 Pr ovider: Diagnosis: Last Documented On 9 4:08PM By Daniel [facility] Furosemide 40 MG Oral Tablet 04/21/2019 Provider: Diagnosis: Last Documented On 9 4:09PM By Daniel [facility] Potassium Chloride 20 MEQ Oral Packet 04/21/2019 Pro vider: Diagnosis: Last Documented On 9 4:09PM By Daniel Mo ; [facility], [facility] Omeprazole 40 MG Oral Capsul e Delayed Release 04/21/2019 Provider: Chintan Aguayo MD Diagnosis: Last Documented On 9 4:10PM By Daniel Mo ; [facility], [facility] ARIPiprazole 5 MG Oral Tablet 04/14/2019 Provider: Diagnosis: Last Documented On 9 4:10PM By Daniel Mo ; [facility], [facility] Venlafaxine HCl ER 150 MG Or al Capsule Extended Release 24 Hour 03/31/2019 Provider: Diagnosis: Last Documented On 9 4:10PM By Daniel oM ; [facility], [facility] metFORMIN HCl 1000 MG Oral Tablet 03/10/2019 Provide r: Chintan Aguayo MD Diagnosis: Last Documented On 9 4:10PM By Daniel Mo ; [facility], [facility] Lisinopril-hydroCHLOROthiazi de 20-25 MG Oral Tablet 03/04/2019 Provider: TRELL BECKWITH MD Diagnosis: Last Documented On 9 4:10PM By Daniel Mo ; [facility], [facility] Past Medications on file Lexapro 10 MG OR TABS 06/27/2014 - 04/22/2019 Provider : Diagnosis: Last Documented On 9 4:08PM By Daniel Mo ; [facility], [facility] Lisinopril 10 MG OR TABS 06/27/2014 - 04/22/2019 Provi vincent: Diagnosis: Last Documented On 9 4:08PM By Daniel Mo ; [facility], [facility] metFORMIN HCl 500 MG TABS 06/27/2014 - 04/22/2019 Prov ider: Diagnosis: Last Documented On 9 4:08PM By Daniel Mo ; [facility], [facility] Dexilant 30 MG OR CPDR 06/27/2014 - 04/22/2019 Provide r: Diagnosis: Last Documented On 9 4:08PM By Daniel Mo ; [facility], [facility] Diclofenac Potassium 50 MG O R TABS 06/27/2014 - 07/27/2014 Provider: Randy DUMONT Diagnosis: be Last Documented On 4 1:34PM By Isa Avendano ; [facility], [facility] Medications Administered Includes: Administered Medications in patient's chart No Administered Medications Recorded Results Includes: Results from 04/08/2024 through 04/08/2025 No Results Recorded For Specified Dates History of Present Illness History of Present Illness not supported for this document type No History of Present Illness Recorded Social History Description Last Updated Smoker 12/12/2021 Last Documented On 3 1:37PM ; [facility] Unemployed 12/12/2021 Last Documented On 3 1:37PM ; [facility] Tobacco use 06/27/2014 Last Documented On 4 1:30PM ; [facility], [facility] Smoking status : Current everyday smoker 06/27/2014 Last Documented On 4 1:30PM ; [facility] Alcohol use 06/27/2014 Last Documented On 4 1:30PM ; [facility] Current smoker 06/27/2014 Last Documented On 4 1:30PM ; [facility] No caffeine use 06/27/2014 Last Documented On 4 1:30PM ; [facility], [facility] No recent change in diet 06/27/2014 Last Documented On 4 1:30PM ; [facility] Not exercising regularly 06/27/2014 Last Documented On 4 1:30PM ; [facility] Not using drugs 06/27/2014 Last Documented On 4 1:30PM ; [facility], [facility] Medical History Includes: Medical History in patient's chart Description Last Updated No recent immunization for flu 2 Last Documented On 3 1:37PM ; [facility], [facility] No recent immunization for pneumococcal pneumonia 12/12/2021 Last Documented On 3 1:37PM ; [facility] Intermittent hypertension 04/22/2019 Last Documented On 0 12:13PM ; [facility] History of depression 04/22/2019 Last Documented On 0 12:13PM ; [facility] gall bladder, wisdom teeth 06/27/2014 Last Documented On 4 1:30PM ; [facility] Arthritic joint problems 06/27/2014 Last Documented On 4 1:30PM ; [facility] History of diabetes mellitus 06/27/2014 Last Documented On 4 1:30PM ; [facility] History of gastric ulcer 06/27/2014 Last Documented On 4 1:30PM ; [facility] Family History Includes: Family History in patient's chart Description Last Updated Family history of hypertension 9 Last Documented On 0 12:13PM ; [facility] non-contributory 06/27/2014 Last Documented On 4 1:30PM ; [facility] Review of Systems Review of [...] Subscriber Relationship Effect margarito Dates 1 - [facility] [id number] Gonzalo Russell Self 03/13/2022 - Unknown Clinical Notes Includes: Signed Clinical Notes starting from 06/26/2022 No Clinical Notes Recorded
--- OUTSIDE RECORDS SUMMARY | 2025-04-08 09:29 | XMS_ITS | Clinical Summary ---
Author Organization [facility] Address [address] [place] [address] Care Team Providers Care District Sales Leader Name Role Phone Malcolm Hayward ADALGISA Primary [...] 6 hours as needed for pain. Under [place] law, monthly prescriptions (30 days) can be refilled at 25 days and three-month prescriptions (90 days) at 80 days. Please contact the insurance company with questions if refills are denied. 100 tablet 12/18/19 25 Active polyethylene glycol (Miralax) 17 g packet Take 17 g by mouth daily. 30 packet 12/18/19 25 Active HYDROcodone-acetam inophen ([place]) 10-325 MG tablet Take 1 tablet by [...] 02/23/20 25 Active Insulin Pen Needle (Pen Hartsh[place]) 31G X 5 MM [facility] USE TO INJECT INSULIN 3 TIMES PER [...] Department Care Team Description 02/27/2025 Refill [facility] Endocrinology [address] [place] [address] Iveth Hurd 02/27/2025 Telephone [facility] Endocrinology [address] [place] [address] Divine Archer APRN 02/21/2025 Refill [facility] Endocrinology [address] [place] [address] Pratibha Fodre PA 01/10/2025 12:00 PM EDT Office Visit [facility] General Surgery [address] [place] [address] Abigail King, ADALGISA Dermatitis associated with moisture [...] any time in the past 12 m [facility], were you homeless or living in a detention (including now)? No 12/16/2024 Utilities Answer Date Recorded In the past 12 months has th e [employer], gas, oil, or water company threatened to [...] 2022 Sigmoidoscopy 2022 [facility]-Colorectal Cancer Screening 2022 [id number] Vaccine (3 - 2024- season) 2025 02/22/2021, [...] 10.9(H) <5.7 % 12/13/2024 11:55 AM EDT [facility] Blood Venous blood specimen / Unknown Venipuncture / Unknown 12/12/2024 11:46 PM EDT 12/13/2024 12:06 AM EDT Narrative [facility] - 12/13/2024 11:55 AM EDT HA1C Interpretive Data: Diagnosis of Diabetes: Diabetic > or = 6.5% Pre-diabetic 5.7 to 6.4% Non-diabetic < or = 5.6% Glycemic Targets for Type I and Type II Diabetics: Non- Adults <7.0% Adults <6.0% Children and Adolescents <7.5% Source: [place] [employer]. Standards of medical care in diabetes,2017. Diabetes Care.2017:40 (suppl 1):S1-S135. Nicole Casas MD LAB BLOOD ORDERABLES Melba don Result [facility] [address] [place] [address] from Last 3 Months or Most Recently Relevant to Health Maintenance Insurance [facility] [place] [address] Advance Directives * Full Code (Latest Code Status on File) Date Activated Date Inactivated Comments 12/12/2024 11:07 PM 12/17/2024 3:22 PM Question Answer Comments I have reviewed the capacity from the link above and, if needed, have updated to appropriate status: Yes Care Teams District Sales Leader Relationship Specialty Start Date End Date Malcolm Hayward APRN [address] [place] [address] [place] [address] PCP - General 09/21/23
--- OUTSIDE RECORDS SUMMARY | 2025-04-08 09:29 | XMS_ITS | Encounter Summary ---
Author Organization Healthcare Address [address] [id number] Care Team Providers Care Ash Collector Name Role Phone Malcolm Hayward ADALGISA Primary Care Provider [phone] Reason for Visit * Reason Onset Date Comments Med Refill 02/21/2025 Encounter Details Date Type Department Care Team (Late st Contact Info) Description 02/21/2025 Refill [facility] Endocrinology [address] [place] [address] Pratibha Forde, PA [address] [facility] [address] [place] [address] Social History Tobacco Use Types [...] any time in the past 12 m [facility], were you homeless or [...] documented as of this encounter Care Teams Ash Collector Relationship Specialty Start Date End Date Malcolm Hayward APRN [address] [place] [address] PCP - General 09/21/23 documented as of this encounter
--- OUTSIDE RECORDS SUMMARY | 2025-04-08 09:29 | XMS_ITS | Encounter Summary ---
Author Organization Healthcare Address [address] [id number] Care Team Providers Care Paper Machine Supervisor Name Role Phone Malcolm Hayward DRAINAGE ENGINEER Primary Care Provider [phone] Reason for Visit * Reason Comments Med Refill Encounter Details Date Type Department Care Team (Late st Contact Info) Description 12/31/2023 Refill [facility] Endocrinology [address] [place] [address] Earline Loaiza, DRAINAGE ENGINEER [address] [facility] [address] [place] [address] Type 2 diabetes mellitus (CMS/HCC) [...] documented as of this encounter Care Teams Paper Machine Supervisor Relationship Specialty Start Date End Date Malcolm Hayward APRN [address] [place] [id number] PCP - General 09/21/23 documented as of this encounter
--- NOTE | 2025-04-08 09:39 | ED_ITS ---
Discharge Plan Disposition Patient Disposition: Home, Self-Care Prescriptions Prescriptions: New cefdinir 300 mg capsule 300 mg PO BID 10 Days Qty: 20 0RF No Action (DME) insulin syringe-needle U-100 [BD Insulin Syringe Ultra-Fine] 1 mL 30 gauge x 1/2 syringe See Rx Instructions .ROUTE .MEDSUPPLY Qty: 10 Rx Instructions: As directed (DME) Dexcom G7 Sensor Device See Rx Instructions miscellaneous .MEDSUPPLY Qty: 1 0RF Rx Instructions: As directed (DME) Dexcom G7 Sensor Device See Rx Instructions .MEDSUPPLY Qty: 3 3RF Rx Instructions: Use 1 sensor for every 10 days (DME) Dexcom G7 Automobile Service Station Manager Misc See Rx Instructions miscellaneous .MEDSUPPLY Qty: 1 0RF Rx Instructions: As directed Humulin R U-500 (Conc) Kwikpen 500 unit/mL (3 mL) insulin pen 200 unit SQ BID Qty: 24 3RF Rx Instructions: Take 200 units twice daily before breakfast and before dinner spironolactone 50 mg tablet 50 mg PO hydrocodone-acetaminophen 10-325 mg tablet 1 tab PO TIDP PRN (Reason: pain) Qty: 90 0RF gabapentin 600 mg tablet 600 mg PO TID Qty: 90 2RF lorazepam 1 mg tablet 1 mg PO DAILYP PRN (Reason: anxiety) Qty: 15 2RF Rx Instructions: +++Monthly+++ Santyl 250 unit/gram ointment 1 applic topical DAILY PRN (Reason: wound care) Qty: 60 1RF Rx Instructions: Wound size 3.3cm x 3.4cm x 0.1cm= total 58 grams (2 tubes of 30 gram tubes) apply 5.8cm per application to dark eschar tissue daily x 30 days mupirocin 2 % ointment 1 applic topical BID 14 Days Qty: 22 1RF (DME) pen needle, diabetic [Comfort EZ Pen Mcguffey] 32 gauge x 5/32 needle See Rx Instructions .Route Qty: 100 0RF Rx Instructions: As directed diltiazem HCl 120 mg capsule,extended release 24hr 120 mg PO DAILY Qty: 90 3RF albuterol sulfate 90 mcg/actuation HFA aerosol inhaler 2 puff inhalation Q4-6H PRN (Reason: shortness of breath or wheezing) Qty: 8.5 3RF Novolin 70/30 U-100 Insulin 100 unit/mL (70-30) suspension 90 unit SQ DAILY spironolactone [Aldactone] 100 mg tablet 100 mg PO DAILY Qty: 30 2RF torsemide 20 mg tablet 40 mg PO QID 30 Days Qty: 240 0RF Xarelto 20 mg tablet 20 mg PO QPMWITHMEAL Qty: 30 5RF omeprazole 40 mg capsule,delayed release(DR/EC) 40 mg PO BID Qty: 90 0RF tamsulosin [Flomax] 0.4 mg capsule 0.4 mg PO DAILY 90 Days Qty: 90 0RF Rx Instructions: tAKE 1/2 HOUR AFTER SAME MEAL DAILY nystatin-triamcinolone 100,000-0.1 unit/g-% cream 1 applic topical BID 30 Days Qty: 30 0RF atorvastatin 40 mg tablet 40 mg PO HS Qty: 90 1RF doxycycline hyclate 100 mg capsule 100 mg PO BID 10 Days Qty: 20 0RF ondansetron 8 mg tablet,disintegrating 8 mg PO Q12H Qty: 30 0RF metformin 1,000 mg tablet 1,000 mg PO BID venlafaxine 150 mg capsule,extended release 24hr 150 mg PO DAILY bisoprolol fumarate 5 mg tablet 5 mg PO BID Patient Comments: TAKE 1 TABLET BY MOUTH TWICE A DAY FOR BLOOD PRESSURE trazodone 100 mg tablet 100 mg PO HS Patient Comments: TAKE 1 TABLET AT BEDTIME Ozempic 0.25 mg or 0.5 mg (2 mg/3 mL) pen injector 0.25 mg SQ WEEKLY Qty: 3 1RF Rx Instructions: for 4 weeks Vraylar 3 mg capsule 3 mg PO DAILY Rx Instructions: TAKE 1 CAPSULE BY MOUTH DAILY Referrals Follow up/Referrals: Malcolm Hayward APRN [Primary Care Provider, Family Practice] - See instructions Activity Restrictions/Add. Instructions Additional Instructions/Restrictions: Please keep your Barber catheter in until you have a voiding trial within the next 7 days with your urologist. Follow-up as previously instructed on Thursday. Clinical Impressions Clinical Impression: Acute urinary retention, Urinary urgency, UTI (urinary tract infection) Instructions Patient Instructions: DI for Urinary Tract Infection (UTI), DI for Urinary Tract Infection in Children Print Language Print Language: Czech Discharge ED Provider: Saulo Negrete General Adult [facility] General Chief complaint: Urogenital-Male Stated complaint: trouble urinating Time Seen by Provider: 04/08/25 09:23 History of Present Illness HPI narrative: Patient is a 49-year-old morbidly obese gentleman with a history of diabetes who presents today with urinary urgency and retention. Had a similar presentation a little over a month ago where he was diagnosed ultimately with balanitis had an indwelling Barber catheter that was ultimately removed. States this is returned and symptoms are similar. Denies any itching or pain at the tip of his penis this time which he had last time. No fevers or chills. Regarding his morbid obesity he failed long-term gastric sleeve surgery in 2020 lost to 100 pounds and gained all back and he has recently been reinitiated on Ozempic. Also states that he has significant fluid retention that is chronic and associated with his heart failure and is followed outpatient with cardiology. Related Data Home Medications ?Medication ?Instructions ?Recorded ?Confirmed insulin syringe-needle U-100 1 mL #10 ea 02/18/2403/14 30 gauge x 07/14 (BD Insulin Syringe Ultra-Fine) Held on 03/21/25. Instructions: Home Medication placed on hold at Doctor's office metformin 1,000 mg tablet 1,000 mg PO BID 02/18/24 bisoprolol fumarate 5 mg tablet 5 mg PO BID 12/08/24 0 04/06/25 trazodone 100 mg tablet 100 mg PO HS 12/08/24 venlafaxine 150 mg 150 mg PO DAILY 12/08/24 capsule,extended release 24 hr insulin human U-100 NPH-regulr 90 unit SQ DAILY 04/06/25 70-30 mix 100 unit/mL subcutaneous susp (Novolin 70/30 U-100 Insulin) Held on 03/21/25. Instructions: Home Medication placed on hold at Doctor's office cariprazine 3 mg capsule (Vraylar) 3 mg PO DAILY 02/2304/06/25 spironolactone 50 mg tablet 50 mg PO 03/28/25 04/06/25 Previous Rx's ?Medication ?Instructions ?Recorded pen needle, diabetic 32 gauge x #100 ea 09/16/23 (Comfort EZ Pen Mcguffey) diltiazem HCl 120 mg 120 mg PO DAILY #90 caps 07/05 capsule,extended release 24 hr albuterol sulfate 90 mcg/actuation 2 puff inhalation Q 4-6H PRN 09/27/24 aerosol inhaler shortness of breath or wheez ing #8.5 grams semaglutide 0.25 mg or 0.5 mg (2 0.25 mg (0.368 mL) SQ WEEKLY #3 mL 12/09/ mg/3 mL) subcutaneous pen injector (Ozempic) omeprazole 40 mg capsule,delayed 40 mg PO BID #90 caps 12/22/24 release nystatin-triamcinolone 100,000 1 applic topical BID 30 days #30 02/24/25 unit/g-0.1 % topical cream grams tamsulosin 0.4 mg capsule (Flomax) 0.4 mg PO DAILY 90 days #90 caps 02/24/25 spironolactone 100 mg tablet 100 mg PO DAILY #30 tabs 02/27/25 (Aldactone) atorvastatin 40 mg tablet 40 mg PO HS #90 tabs 5 Humulin R U-500 (Conc) Kwikpen 500 200 unit (0.4 mL) S Q BID #24 mL 03/21/25 unit/mL (3 mL) subcutaneous (insulin regular hum U-500 conc) blood-glucose sensor (Dexcom G7 #1 ea 03/21/25 Sensor device) blood-glucose sensor (Dexcom G7 #3 ea 03/21/25 Sensor device) blood-glucose,job analysis manager,cont #1 ea 03/21/25 (Dexcom G7 Automobile Service Station Manager) gabapentin 600 mg tablet 600 mg PO TID #90 tabs 03/28 hydrocodone 10 mg-acetaminophen 1 tab PO TIDP PRN pain #90 tabs 03/28/25 325 mg tablet lorazepam 1 mg tablet 1 mg PO DAILYP PRN anxiety # 15 tabs 03/28/25 doxycycline hyclate 100 mg capsule 100 mg PO BID 10 da ys #20 caps 03/30/25 ondansetron 8 mg disintegrating 8 mg PO Q12H #30 tabs 03/30/25 tablet collagenase clostridium histo. 250 1 applic topical DA DIVYA PRN wound 04/05/25 unit/gram topical ointment (Santyl) care #60 grams mupirocin 2 % topical ointment 1 applic topical BID in fection 14 04/05/25 days #22 grams rivaroxaban 20 mg tablet (Xarelto) 20 mg PO QPMWITHMEA L #30 tabs 04/06/25 torsemide 20 mg tablet 40 mg (2 x 20 mg) PO QID 30 days 04/06/25 #240 tabs cefdinir 300 mg capsule 300 mg PO BID 10 days #20 ca ps 04/08/25 Allergies Allergy/AdvReac Type Severity Reaction Status Date / Time vancomycin AdvReac Severe Redness of Verified 04/06/25 10:28 Skin clindamycin AdvReac Mild Nausea Verified 04/06/25 10:28 doxycycline AdvReac Mild Upset Verified 04/06/25 10:28 stomach, heartbur PFSH PFSH Disclaimer: The information contained in this section may have been updated after the patient was seen, as this information can be updated by other users. 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 Tachycardia Bilateral knee pain DDD (degenerative disc disease), lumbar Depression Morbid obesity with body mass index of 70 and over in adult CHF (congestive heart failure) COPD (chronic obstructive pulmonary disease) Diabetes Dyspnea BMI 60.0-69.9, adult Obesity Anxiety disorder Hypertension Diabetes type 2, uncontrolled Surgical History S/P gastric sleeve procedure History of gastric bypass Family History Father Cancer Other No significant family history Social History Smoking Status: Never smoker alcohol intake: former year quit: 2021 counseling given: Yes counseling provided: provider counseling substance use type: denies use current occupational status: unemployed and disabled Travel in the last 8 weeks?: None household members: spouse and children housing: house marital status: number of children: 1 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 current occupational exposures/hazards: No pets and animals: Yes pets and animals: cat(s) diet: other caffeine: Yes physical activity: none Have you lived/traveled outside [place] in past 30 days?: No Contact w/someone who lives/traveled outside [place] past 30 days?: No Exposure to someone with infectious disease in past 14 days?: No Do you have a fever (greater than 100.4 F or 38 C)?: No Have you tested positive for COVID-19?: No Exposed to someone with COVID-19 in past 14 days?: No Do you have a sore throat?: No Do you have a cough?: No Do you have any weakness?: No Do you have any diarrhea?: No Are you experiencing any unusual bleeding?: No Do you have any muscle aches/pain?: No Do you have any abdominal pain?: No Are you experiencing loss of taste or smell?: No Other Medical History Have you received the Flu Vaccine for this season: No Have you received the Pneumonia Vaccine: Yes ROS Obtained: Yes All systems reviewed & no additional complaints except as documented Physical Exam General General appearance: alert and in no apparent distress Respiratory Respiratory exam: Present normal lung sounds bilaterally Cardiovascular Cardiovascular exam: Present regular rate exam: Present other (Patient has the majority of his genitalia embedded in his abdominal and pelvic pannus/abdominal wall/adipose tissue however once exposed no obvious evidence of external inflammation or fungal infection) Neurological Exam Neurological exam: Present alert and oriented X3 Medical Decision Making Medical Records Screening: Per USPSTF and CDC recommendations, given the prevalence of disease in our region, it is our hospital?s policy to screen for HIV and viral Hepatitis for all patients aged 18 and over and those with ongoing risk factors. Sy Inquiry Pt receiving controlled substance: No Vital Signs: 04/08/25 09:20 04/08/25 09:27 04/08/25 09:42 Temperature 98 F Temperature Source Oral Pulse Rate 75 72 Pulse Rate [Right Radial] 79 Respiratory Rate 16 Blood Pressure 165/94 H 134/81 Blood Pressure [Right Arm] 165/94 H Blood Pressure Mean [Right Arm] 117 Blood Pressure Source [Right Arm] Automatic Cuff Blood Pressure Position [Right Arm] Supine 02 Sat by Pulse Oximetry 96 98 97 Oxygen Delivery Method Room Air Room Air Room Air 04/08/25 10:00 Temperature Temperature Source Pulse Rate 69 Pulse Rate [Right Radial] Respiratory Rate Blood Pressure 146/84 H Blood Pressure [Right Arm] Blood Pressure Mean [Right Arm] Blood Pressure Source [Right Arm] Blood Pressure Position [Right Arm] 02 Sat by Pulse Oximetry 96 Oxygen Delivery Method Room Air Lab Data Lab results reviewed: Yes I reviewed the patient's lab results. Lab Results 04/08/25 09:34: WBC 8.9, RBC 4.87, Hgb 11.1 L, Hct 37.3 L, MCV 76.6 L, MCH 22.8 L, MCHC 29.8 L, RDW 19.1 H, Plt Count 303, MPV 9.0, Neut % (Auto) 79.0, Lymph % (Auto) 13.0, [place] % (Auto) 6.0, Eos % (Auto) 1.0, Baso % (Auto) 0.3, Neut # (Auto) 7.1, Lymph # (Auto) 1.2, [place] # (Auto) 0.5, Eos # (Auto) 0.1, Baso # (Auto) 0.0, Sodium 131 L, Potassium 3.2 L, Chloride 84 L, Carbon Dioxide 35 H, A [place] 15.2 H, BUN 9, Creatinine 0.80, Estimated Creat Clear 125, Estimated GFR 104, Est GFR ( Amer) 125, Glucose 192 H, Calcium 9.3, Total Bilirubin 1.0, AST 22, ALT 20, Alkaline Phosphatase 74, Total Protein 8.3 H, Albumin 4.2, Globulin 4.1 H, Albumin/Globulin Ratio 1.0 L 04/08/25 10:30: Urine Color Yellow, Urine Appearance Clear, Urine pH 6.0, Ur Specific [place] 1.010, Urine Protein Negative, Urine Glucose (UA) Negative, Urine Ketones Negative, Urine Blood Negative, Urine Nitrate Positive A, Urine Bilirubin Negative, Urine Urobilinogen 1.0, Ur Leukocyte Esterase Trace, Urine WBC Occasional, Urine Bacteria Trace 04/08/25 09:34 04/08/25 09:34 Orders (Tests/Meds): ORDERS Category Date Time Status CBC w/Auto Diff [Complete Blood Count Auto Diff] Stat Lab 04/08/25 09:34 Completed CMP [Comprehensive Metabolic Panel] Stat Lab 04/08/25 09:34 Completed UA [Urinalysis and Microscopic] Stat Lab 04/08/25 10:30 Completed UA [Urinalysis and Microscopic] Stat Lab 04/08/25 10:31 Ordered Urine Culture Stat Micro 04/08/25 10:30 Received Medical Decision Narrative: Patient with above history and physical we will obtain a bladder scan and then place an indwelling Barber catheter given the fact that he likely has significant amount of urinary retention. I suspect he may have a urinary tract infection will check urinalysis and check his basic blood work as well. It is possible that the patient has just chronic inflammatory changes associated with having balanitis in the past they have urethral stenosis etc. He has an appointment with urology on Thursday to follow this up. Reassessment 11:47 AM patient remained stable labs unremarkable from an emergency standpoint aside from a nitrate positive urine we will treat with cefdinir and allow his Barber catheter remain indwelling and he has follow-up with urology on Thursday. Does have a mild hyponatremia and hypokalemia. These likely are secondary to his diuretic use he has close follow-up with cardiology as well. Patient discharged in stable condition Critical Care Critical Care Time Critical Care Time: No
[2025-04-08 09:42] VITALS: BP 134/81; PULSE 72; O2SAT 97
[2025-04-08 10:00] VITALS: BP 146/84; PULSE 69; O2SAT 96
[2025-04-08 10:31] LABS: Hematocrit 37.3 % (42.0-52.0); Hemoglobin 11.1 g/dL (14.1-18.0); Immature Granulocytes % 0.7 %; Mean Corpuscular HGB Conc 29.8 g/dL (31.8-35.4); Mean Corpuscular Hemoglobin 22.8 pg (27.0-31.2); Mean Corpuscular Volume 76.6 fl (80-94); Nucleated Red Blood Cells % 0 %; Platelet Count 303 K/mm3 (142-424); Red Blood Count 4.87 M/mm3 (4.60-6.20); Red Cell Distribution Width-SD 52.1 fL; White Blood Count 8.9 K/mm3 (4.8-10.8)
[2025-04-08 10:34] LABS: Microscopic, Urine URINE MICROSCOPIC (MICROSCOPIC)
[2025-04-08 10:45] LABS: Bilirubin,Urine Negative (Negative); Color,Urine YELLOW (Yellow); Glucose,Urine (UA) Negative (Negative); Ketones,Urine Negative (Negative); Leukocyte Esterase,Urine TRACE (Negative); PH,Urine 6.0 (5.0-8.5); Protein,Urine Negative (Negative); Specific Gravity, Urine 1.010 (1.005-1.030); Urobilinogen,Urine 1.0 EU/dl (0.2)
[2025-04-08 10:55] LABS: Bacteria,Urine Trace /lpf; WBC,Urine Occasional #/hpf (0-3)
[2025-04-08 11:11] LABS: Alanine Aminotransferase 20 U/L (12-78); Albumin Level 4.2 g/dl (3.5-5.0); Albumin/Globulin Ratio 1.0 (1.1-1.8); Alkaline Phosphatase 74 U/L (38-126); Anion Gap 15.2 mEq/L (5-15); Aspartate Amino Transferase 22 U/L (17-59); Bilirubin,Total 1.0 mg/dl (0.2-1.3); Blood Urea Nitrogen 9 mg/dl (9-20); Calcium 9.3 mg/dl (8.4-10.2); Carbon Dioxide 35 mmol/L (22.0-30.0); Chloride 84 mmol/L (98-107); Creatinine Clearance Estimated 125 mL/min (50-200); Creatinine,Serum 0.80 mg/dl (0.66-1.25); Estimated Glomerular Filt Rate 104 ml/min (>60); GFR (African American) 125 ML/MIN (>60); Globulin 4.1 g/dL (1.3-3.2); Glucose 192 mg/dl (74-100); Potassium 3.2 mmoL/L (3.5-5.1); Sodium 131 mmol/L (136-145); Total Protein,Serum 8.3 g/dl (6.3-8.2)
[2025-04-08 11:51] VITALS: BP 140/76; PULSE 74; RESP 17; TEMP 36.7; O2SAT 99
--- NOTE | 2025-04-12 09:33 | PC.NURSE ---
I spoke with about the pts final urine cultures. He suggested the pt return for PICC placement and out pt antibiotics with possible admission. Pt states also wanted him to come in for admission. pt reports he will return sometime today and verbalized his understanding.
== END 2025-04-08 11:52 | disposition home or self-care (01) ==
PROVIDERS: Emergency Provider Student in an Organized Health Care Education/Training Program; PCP Nurse Practitioner Family
DX: N39.0 Urinary tract infection, site not specified (principal); R33.8 Other retention of urine; R39.15 Urgency of urination; E87.6 Hypokalemia; E87.1 Hypo-osmolality and hyponatremia; I11.0 Hypertensive heart disease with heart failure; I50.33 Acute on chronic diastolic (congestive) heart failure; E11.9 Type 2 diabetes mellitus without complications; E66.01 Morbid (severe) obesity due to excess calories; Z87.891 Personal history of nicotine dependence; B96.20 Unspecified Escherichia coli [E. coli] as the cause of diseases classified elsewhere; Z79.4 Long term (current) use of insulin
CPT/HCPCS: 51702; 51798; 80053; 81001; 85025; 87086; 87088; 87186; 99285

== ENCOUNTER 2025-04-12 12:04 | Inpatient (IN) | payer MEDICARE, BC, SELFPAY ==
--- OUTSIDE RECORDS SUMMARY | 2025-02-15 20:00 | XMS_ITS | Clinical Summary ---
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 12-22 [...] 325 mg tablet 12-22 00:00: 00 Yes [id number] PAIN 2 tablet EVERY 6 HOURS 2 tablet EVERY 6 HOURS (route: oral) Med Classific ation: Analgesic , Anti-infl ammatory or Antipyret ic atorvastati n 40 mg tablet 12-22 00:00: 00 Yes [id number] CHOLESTEROL 1 tablet DAILY 1 tablet DAILY (route: oral) Med Classific ation: Cardiovas cular Therapy Agents Bactrim DS 800 mg-160 mg tablet 12-22 00:00: 00 12-27 23:59 :00 No [id number] INFECTION 2 tablet 2 TIMES DAILY 2 tablet 2 TIMES DAILY (route: oral) Med Classific ation: Anti-Infe ctive Agents bisoprolol fumarate 5 mg tablet 12-22 00:00: 00 Yes [id number] HTN 1 tablet 2 TIMES DAILY 1 tablet 2 TIMES DAILY (route: oral) Med Classific ation: Cardiovas cular Therapy Agents diltiazem 120 mg tablet 12-22 00:00: 00 Yes [id number] HYPERTENSIO N 1 tablet DAILY 1 tablet DAILY (route: oral) Med Classific ation: Cardiovas cular Therapy Agents gabapentin 600 mg tablet 12-22 00:00: 00 Yes [id number] PAIN 1 tablet 3 TIMES DAILY 1 tablet 3 TIMES DAILY (route: oral) Med Classific ation: Central Nervous System Agents lorazepam 1 mg tablet 12-22 00:00: 00 Yes [id number] ANXIETY 1 tablet DAILY 1 tablet DAILY (route: oral) Med Classific ation: Central Nervous System Agents metformin 1,000 mg tablet 12-22 00:00: 00 Yes [id number] DM2 1 tablet 2 TIMES DAILY 1 tablet 2 TIMES DAILY (route: oral) Med Classific ation: Endocrine naloxone 4 mg/actuatio n nasal spray 12-22 00:00: 00 Yes [id number] NARCOTIC OVERDOSE 1 spray DIRECTED 1 spray DIRECTED (route: nasal) Med Classific ation: Antidotes and other Reversal Agents Novolog Mix 70-30 U-100 Insulin 100 unit/mL subcutaneou s solution 12-22 00:00: 00 Yes [id number] DM2 90 unit 3 TIMES DAILY 90 unit 3 TIMES DAILY (route: subcutaneo us) Med Classific ation: Endocrine omeprazole 40 mg capsule,del ayed release 12-22 00:00: 00 Yes [id number] GERD 1 capsule 2 TIMES DAILY 1 capsule 2 TIMES DAILY (route: oral) Med Classific ation: Gastroint estinal Therapy Agents ondansetron 4 mg disintegrat ing tablet 12-22 00:00: 00 Yes [id number] NAUSEA 1 tablet EVERY 6 HOURS 1 tablet EVERY 6 HOURS (route: oral) Med Classific ation: Gastroint estinal Therapy Agents oxycodone 5 mg tablet 12-22 00:00: 00 Yes [id number] SEVERE PAIN 1 tablet EVERY 6 HOURS 1 tablet EVERY 6 HOURS (route: oral) Med Classific ation: Analgesic , Anti-infl ammatory or Antipyret ic spironolact one 50 mg tablet 12-22 00:00: 00 Yes [id number] BLOOD PRESSURE 1 tablet DAILY 1 tablet DAILY (route: oral) Med Classific ation: Cardiovas cular Therapy Agents torsemide 20 mg tablet 12-22 00:00: 00 Yes [id number] FLUID OVERLOAD 1 tablet DAILY 1 tablet DAILY (route: oral) Med Classific ation: Cardiovas cular Therapy Agents trazodone 100 mg tablet 12-22 00:00: 00 Yes [id number] SLEEP 1 tablet EVERY PM 1 tablet EVERY PM (route: oral) Med Classific ation: Central Nervous System Agents venlafaxine ER 150 mg capsule,ext ended release 24 hr 12-22 00:00: 00 Yes [id number] DEPRESSION 1 capsule DAILY 1 capsule DAILY (route: oral) Med Classific ation: Central Nervous System Agents Ventolin HFA 90 mcg/actuati on aerosol inhaler 12-22 00:00: 00 Yes [id number] WHEEZING/ SOA 2 puff EVERY 6 HOURS 2 puff EVERY 6 HOURS (route: inhalation ) Med Classific ation: Respirato ry Therapy Agents Vraylar 3 mg capsule 12-22 00:00: 00 Yes [id number] DEPRESSION 1 capsule DAILY 1 capsule DAILY (route: oral) Med Classific ation: Central Nervous System Agents Xarelto 20 mg tablet 12-22 00:00: 00 Yes [id number] ANTICOAGULA NT 1 tablet DAILY 1 tablet DAILY (route: oral) Med Classific ation: Hematolog ical Agents nitrofurant oin 100 mg tablet 01-01 00:00: 00 01-08:59 :00 No [id number] ANTIBIOTIC 100 mg EVERY 12 HOURS 100 mg EVERY 12 HOURS (route: oral) Med Classific ation: Genitouri nary Therapy Bactrim DS 800 mg-160 mg tablet 01-12 00:00: 00 01-19 23:59 :00 No [id number] PROPHYLAXIS FOR RIGHT UPPER EXTREMITY WOUND INFECTION 1 tablet 2 TIMES DAILY 1 tablet 2 TIMES DAILY (route: oral) Med Classific ation: Anti-Infe ctive Agents Cavilon Durable Barrier 1.3 % topical cream 01-12 00:00: 00 Yes [id number] WOUND PROTECTANT Per instruc tions DAILY Per [...] End Date/Time Encounter Type Admission Type Attending [facility] Care Department Encounter ID Discharge Date Discharge Status Discharge Condition Discharge Reason Percent Goals Met 2024-12-22 00:00:00 2025-02-16 00:00:00 Outpatient NEW ADMISSION MEÑO [facility]LES [facility] [id number] 00:00:00 DISCHARGE TO HOME OR SELF CARE MODERATE ASSIST WITH TRANSFER/A MBULATION/ ADLS PER CLIENT REQUEST 79.66
--- OUTSIDE RECORDS SUMMARY | 2025-02-15 20:00 | XMS_ITS | Clinical Summary ---
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 [...] 325 mg tablet 12-22 00:00: 00 Yes [id number] PAIN 2 tablet EVERY 6 HOURS 2 tablet EVERY 6 HOURS (route: oral) Med Classific ation: Analgesic , Anti-infl ammatory or Antipyret ic atorvastati n 40 mg tablet 12-22 00:00: 00 Yes [id number] CHOLESTEROL 1 tablet DAILY 1 tablet DAILY (route: oral) Med Classific ation: Cardiovas cular Therapy Agents Bactrim DS 800 mg-160 mg tablet 12-22 00:00: 00 12-27 23:59 :00 No [id number] INFECTION 2 tablet 2 TIMES DAILY 2 tablet 2 TIMES DAILY (route: oral) Med Classific ation: Anti-Infe ctive Agents bisoprolol fumarate 5 mg tablet 12-22 00:00: 00 Yes [id number] HTN 1 tablet 2 TIMES DAILY 1 tablet 2 TIMES DAILY (route: oral) Med Classific ation: Cardiovas cular Therapy Agents diltiazem 120 mg tablet 12-22 00:00: 00 Yes [id number] HYPERTENSIO N 1 tablet DAILY 1 tablet DAILY (route: oral) Med Classific ation: Cardiovas cular Therapy Agents gabapentin 600 mg tablet 12-22 00:00: 00 Yes [id number] PAIN 1 tablet 3 TIMES DAILY 1 tablet 3 TIMES DAILY (route: oral) Med Classific ation: Central Nervous System Agents lorazepam 1 mg tablet 12-22 00:00: 00 Yes [id number] ANXIETY 1 tablet DAILY 1 tablet DAILY (route: oral) Med Classific ation: Central Nervous System Agents metformin 1,000 mg tablet 12-22 00:00: 00 Yes [id number] DM2 1 tablet 2 TIMES DAILY 1 tablet 2 TIMES DAILY (route: oral) Med Classific ation: Endocrine naloxone 4 mg/actuatio n nasal spray 12-22 00:00: 00 Yes [id number] NARCOTIC OVERDOSE 1 spray DIRECTED 1 spray DIRECTED (route: nasal) Med Classific ation: Antidotes and other Reversal Agents Novolog Mix 70-30 U-100 Insulin 100 unit/mL subcutaneou s solution 12-22 00:00: 00 Yes [id number] DM2 90 unit 3 TIMES DAILY 90 unit 3 TIMES DAILY (route: subcutaneo us) Med Classific ation: Endocrine omeprazole 40 mg capsule,del ayed release 12-22 00:00: 00 Yes [id number] GERD 1 capsule 2 TIMES DAILY 1 capsule 2 TIMES DAILY (route: oral) Med Classific ation: Gastroint estinal Therapy Agents ondansetron 4 mg disintegrat ing tablet 12-22 00:00: 00 Yes [id number] NAUSEA 1 tablet EVERY 6 HOURS 1 tablet EVERY 6 HOURS (route: oral) Med Classific ation: Gastroint estinal Therapy Agents oxycodone 5 mg tablet 12-22 00:00: 00 Yes [id number] SEVERE PAIN 1 tablet EVERY 6 HOURS 1 tablet EVERY 6 HOURS (route: oral) Med Classific ation: Analgesic , Anti-infl ammatory or Antipyret ic spironolact one 50 mg tablet 12-22 00:00: 00 Yes [id number] BLOOD PRESSURE 1 tablet DAILY 1 tablet DAILY (route: oral) Med Classific ation: Cardiovas cular Therapy Agents torsemide 20 mg tablet 12-22 00:00: 00 Yes [id number] FLUID OVERLOAD 1 tablet DAILY 1 tablet DAILY (route: oral) Med Classific ation: Cardiovas cular Therapy Agents trazodone 100 mg tablet 12-22 00:00: 00 Yes [id number] SLEEP 1 tablet EVERY PM 1 tablet EVERY PM (route: oral) Med Classific ation: Central Nervous System Agents venlafaxine ER 150 mg capsule,ext ended release 24 hr 12-22 00:00: 00 Yes [id number] DEPRESSION 1 capsule DAILY 1 capsule DAILY (route: oral) Med Classific ation: Central Nervous System Agents Ventolin HFA 90 mcg/actuati on aerosol inhaler 12-22 00:00: 00 Yes [id number] WHEEZING/ SOA 2 puff EVERY 6 HOURS 2 puff EVERY 6 HOURS (route: inhalation ) Med Classific ation: Respirato ry Therapy Agents Vraylar 3 mg capsule 12-22 00:00: 00 Yes [id number] DEPRESSION 1 capsule DAILY 1 capsule DAILY (route: oral) Med Classific ation: Central Nervous System Agents Xarelto 20 mg tablet 12-22 00:00: 00 Yes [id number] ANTICOAGULA NT 1 tablet DAILY 1 tablet DAILY (route: oral) Med Classific ation: Hematolog ical Agents nitrofurant oin 100 mg tablet 01-01 00:00: 00 01-08:59 :00 No [id number] ANTIBIOTIC 100 mg EVERY 12 HOURS 100 mg EVERY 12 HOURS (route: oral) Med Classific ation: Genitouri nary Therapy Bactrim DS 800 mg-160 mg tablet 01-12 00:00: 00 01-19 23:59 :00 No [id number] PROPHYLAXIS FOR RIGHT UPPER EXTREMITY WOUND INFECTION 1 tablet 2 TIMES DAILY 1 tablet 2 TIMES DAILY (route: oral) Med Classific ation: Anti-Infe ctive Agents Cavilon Durable Barrier 1.3 % topical cream 01-12 00:00: 00 Yes [id number] WOUND PROTECTANT Per instruc tions DAILY Per [...] End Date/Time Encounter Type Admission Type Attending [facility] Care Department Encounter ID Discharge Date Discharge Status Discharge Condition Discharge Reason Percent Goals Met 2024-12-22 00:00:00 2025-02-16 00:00:00 Outpatient NEW ADMISSION MEÑO [facility]LES [facility] [id number] 00:00:00 DISCHARGE TO HOME OR SELF CARE MODERATE ASSIST WITH TRANSFER/A MBULATION/ ADLS PER CLIENT REQUEST 79.66
--- OUTSIDE RECORDS SUMMARY | 2025-02-15 20:00 | XMS_ITS | Clinical Summary ---
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 12-22 [...] 325 mg tablet 12-22 00:00: 00 Yes [id number] PAIN 2 tablet EVERY 6 HOURS 2 tablet EVERY 6 HOURS (route: oral) Med Classific ation: Analgesic , Anti-infl ammatory or Antipyret ic atorvastati n 40 mg tablet 12-22 00:00: 00 Yes [id number] CHOLESTEROL 1 tablet DAILY 1 tablet DAILY (route: oral) Med Classific ation: Cardiovas cular Therapy Agents Bactrim DS 800 mg-160 mg tablet 12-22 00:00: 00 12-27 23:59 :00 No [id number] INFECTION 2 tablet 2 TIMES DAILY 2 tablet 2 TIMES DAILY (route: oral) Med Classific ation: Anti-Infe ctive Agents bisoprolol fumarate 5 mg tablet 12-22 00:00: 00 Yes [id number] HTN 1 tablet 2 TIMES DAILY 1 tablet 2 TIMES DAILY (route: oral) Med Classific ation: Cardiovas cular Therapy Agents diltiazem 120 mg tablet 12-22 00:00: 00 Yes [id number] HYPERTENSIO N 1 tablet DAILY 1 tablet DAILY (route: oral) Med Classific ation: Cardiovas cular Therapy Agents gabapentin 600 mg tablet 12-22 00:00: 00 Yes [id number] PAIN 1 tablet 3 TIMES DAILY 1 tablet 3 TIMES DAILY (route: oral) Med Classific ation: Central Nervous System Agents lorazepam 1 mg tablet 12-22 00:00: 00 Yes [id number] ANXIETY 1 tablet DAILY 1 tablet DAILY (route: oral) Med Classific ation: Central Nervous System Agents metformin 1,000 mg tablet 12-22 00:00: 00 Yes [id number] DM2 1 tablet 2 TIMES DAILY 1 tablet 2 TIMES DAILY (route: oral) Med Classific ation: Endocrine naloxone 4 mg/actuatio n nasal spray 12-22 00:00: 00 Yes [id number] NARCOTIC OVERDOSE 1 spray DIRECTED 1 spray DIRECTED (route: nasal) Med Classific ation: Antidotes and other Reversal Agents Novolog Mix 70-30 U-100 Insulin 100 unit/mL subcutaneou s solution 12-22 00:00: 00 Yes [id number] DM2 90 unit 3 TIMES DAILY 90 unit 3 TIMES DAILY (route: subcutaneo us) Med Classific ation: Endocrine omeprazole 40 mg capsule,del ayed release 12-22 00:00: 00 Yes [id number] GERD 1 capsule 2 TIMES DAILY 1 capsule 2 TIMES DAILY (route: oral) Med Classific ation: Gastroint estinal Therapy Agents ondansetron 4 mg disintegrat ing tablet 12-22 00:00: 00 Yes [id number] NAUSEA 1 tablet EVERY 6 HOURS 1 tablet EVERY 6 HOURS (route: oral) Med Classific ation: Gastroint estinal Therapy Agents oxycodone 5 mg tablet 12-22 00:00: 00 Yes [id number] SEVERE PAIN 1 tablet EVERY 6 HOURS 1 tablet EVERY 6 HOURS (route: oral) Med Classific ation: Analgesic , Anti-infl ammatory or Antipyret ic spironolact one 50 mg tablet 12-22 00:00: 00 Yes [id number] BLOOD PRESSURE 1 tablet DAILY 1 tablet DAILY (route: oral) Med Classific ation: Cardiovas cular Therapy Agents torsemide 20 mg tablet 12-22 00:00: 00 Yes [id number] FLUID OVERLOAD 1 tablet DAILY 1 tablet DAILY (route: oral) Med Classific ation: Cardiovas cular Therapy Agents trazodone 100 mg tablet 12-22 00:00: 00 Yes [id number] SLEEP 1 tablet EVERY PM 1 tablet EVERY PM (route: oral) Med Classific ation: Central Nervous System Agents venlafaxine ER 150 mg capsule,ext ended release 24 hr 12-22 00:00: 00 Yes [id number] DEPRESSION 1 capsule DAILY 1 capsule DAILY (route: oral) Med Classific ation: Central Nervous System Agents Ventolin HFA 90 mcg/actuati on aerosol inhaler 12-22 00:00: 00 Yes [id number] WHEEZING/ SOA 2 puff EVERY 6 HOURS 2 puff EVERY 6 HOURS (route: inhalation ) Med Classific ation: Respirato ry Therapy Agents Vraylar 3 mg capsule 12-22 00:00: 00 Yes [id number] DEPRESSION 1 capsule DAILY 1 capsule DAILY (route: oral) Med Classific ation: Central Nervous System Agents Xarelto 20 mg tablet 12-22 00:00: 00 Yes [id number] ANTICOAGULA NT 1 tablet DAILY 1 tablet DAILY (route: oral) Med Classific ation: Hematolog ical Agents nitrofurant oin 100 mg tablet 01-01 00:00: 00 01-08:59 :00 No [id number] ANTIBIOTIC 100 mg EVERY 12 HOURS 100 mg EVERY 12 HOURS (route: oral) Med Classific ation: Genitouri nary Therapy Bactrim DS 800 mg-160 mg tablet 01-12 00:00: 00 01-19 23:59 :00 No [id number] PROPHYLAXIS FOR RIGHT UPPER EXTREMITY WOUND INFECTION 1 tablet 2 TIMES DAILY 1 tablet 2 TIMES DAILY (route: oral) Med Classific ation: Anti-Infe ctive Agents Cavilon Durable Barrier 1.3 % topical cream 01-12 00:00: 00 Yes [id number] WOUND PROTECTANT Per instruc tions DAILY Per [...] End Date/Time Encounter Type Admission Type Attending [facility] Care Department Encounter ID Discharge Date Discharge Status Discharge Condition Discharge Reason Percent Goals Met 2024-12-22 00:00:00 2025-02-16 00:00:00 Outpatient NEW ADMISSION MEÑO [facility] [id number] 0026-08-07 00:00:00 DISCHARGE TO HOME OR SELF CARE MODERATE ASSIST WITH TRANSFER/A MBULATION/ ADLS PER CLIENT REQUEST 79.66
[2025-04-12] VITALS (10 sets, daily range): BP systolic 114–149; BP diastolic 44–99; PULSE 64–87; RESP 16–20; TEMP 36.8–37; O2SAT 93–98; BMI 77.3; BMI 76.1
--- NOTE | 2025-04-12 12:29 | XR_ITS ---
FINAL REPORT CLINICAL HISTORY: Shortness of breath COMPARISON: 09/29/2024 FINDINGS: CHEST 1 VIEW The heart size is normal. The mediastinum is normal. The lungs are underinflated. There are mild chronic changes at the bases. There is no focal infiltrate or edema. There are no pleural effusions. There is no pneumothorax. There is no osseous abnormality. IMPRESSION: Chronic changes without acute cardiopulmonary process Reviewed, Interpreted and Dictated by Immanuel Verdin MD Transcribed by Idalia Kilgore Authenticated and [facility]
--- NOTE | 2025-04-12 12:33 | HMH.EDGENADL ---
Discharge Plan Disposition Patient Disposition: Admitted Condition: Fair Clinical Impressions Clinical Impression: UTI due to extended-spectrum beta lactamase (ESBL) producing Escherichia coli, Cardiac volume overload Discharge ED Provider: Nate Keys Adult HPI General Chief complaint: Urogenital-Male Stated complaint: urinary tract infect-antibiotics not working Time Seen by Provider: 04/12/25 12:18 Mode of Arrival: Wheelchair Source of Information: Patient Description of Symptoms (Recalled from ER Triage Doc. by RN): patient states he was called due to infection in his urine. he denies any symptoms at this time. currently on bactrim and cefdiner. History of Present Illness HPI narrative: This is a 49-year-old male patient, with past medical history of morbid obesity, type 2 diabetes, struct of sleep apnea, hypertension, hyperlipidemia, paroxysmal A-fib on Xarelto, and HFpEF, who is presented to the emergency department today for evaluation of multiple complaints. Patient was recently seen here in the emergency department for acute urinary retention and balanitis. He had findings on urinalysis consistent with urinary tract infection and was discharged home with cefdinir. His cultures have since returned positive for ESBL E. coli. Culture sensitivities show sensitivity to Zosyn, meropenem, and tobramycin. In addition to this the patient has been seeing cardiology for fluid retention associated with his heart disease. At his last clinic appointment they increased his torsemide to 40 mg 4 times daily due to his fluid overload and suggested that he should be considered for admission for IV diuresis if his symptoms did not improve with this adjustment in medication. He states that he has not noticed much in the way of increased urinary output with the increase in torsemide and he is still feeling dyspneic. Related Data Home Medications ?Medication ?Instructions ?Recorded ?Confirmed insulin syringe-needle U-100 1 mL #10 ea 02/18/24 04/06/25 30 gauge x 1/2 (BD Insulin Syringe Ultra-Fine) Held on 03/21/25. Instructions: Home Medication placed on hold at Doctor's office metformin 1,000 mg tablet 1,000 mg PO BID 02/18/24 04/06/25 bisoprolol fumarate 5 mg tablet 5 mg PO BID 12/08/24 04/06/25 trazodone 100 mg tablet 100 mg PO HS 12/08/24 04/06/25 venlafaxine 150 mg 150 mg PO DAILY 12/08/24 04/06/25 capsule,extended release 24 hr insulin human U-100 NPH-regulr 90 unit SQ DAILY 12/26/24 04/06/25 70-30 mix 100 unit/mL subcutaneous susp (Novolin 70/30 U-100 Insulin) Held on 03/21/25. Instructions: Home Medication placed on hold at Doctor's office cariprazine 3 mg capsule (Vraylar) 3 mg PO DAILY 02/23/25 04/06/25 spironolactone 50 mg tablet 50 mg PO 03/28/25 04/06/25 Previous Rx's ?Medication ?Instructions ?Recorded pen needle, diabetic 32 gauge x #100 ea 09/16/23 (Comfort EZ Pen [place]) diltiazem HCl 120 mg 120 mg PO DAILY #90 caps 06/23/24 capsule,extended release 24 hr albuterol sulfate 90 mcg/actuation 2 puff inhalation Q4-6H PRN 09/27/24 aerosol inhaler shortness of breath or wheezing #8.5 grams semaglutide 0.25 mg or 0.5 mg (2 0.25 mg (0.368 mL) SQ WEEKLY #3 mL 12/09/24 mg/3 mL) subcutaneous pen injector (Ozempic) omeprazole 40 mg capsule,delayed 40 mg PO BID #90 caps 12/22/24 release nystatin-triamcinolone 100,000 1 applic topical BID 30 days #30 02/24/25 unit/g-0.1 % topical cream grams tamsulosin 0.4 mg capsule (Flomax) 0.4 mg PO DAILY 90 days #90 caps 02/24/25 spironolactone 100 mg tablet 100 mg PO DAILY #30 tabs 02/27/25 (Aldactone) atorvastatin 40 mg tablet 40 mg PO HS #90 tabs 03/20/25 Humulin R U-500 (Conc) Kwikpen 500 200 unit (0.4 mL) SQ BID #24 mL 03/21/25 unit/mL (3 mL) subcutaneous (insulin regular hum U-500 conc) blood-glucose sensor (Dexcom G7 #1 ea 03/21/25 Sensor device) blood-glucose sensor (Dexcom G7 #3 ea 03/21/25 Sensor device) blood-glucose,adult education manager,cont #1 ea 03/21/25 (Dexcom G7 Searchlight Operator) gabapentin 600 mg tablet 600 mg PO TID #90 tabs 03/28/25 hydrocodone 10 mg-acetaminophen 1 tab PO TIDP PRN pain #90 tabs 03/28/25 325 mg tablet lorazepam 1 mg tablet 1 mg PO DAILYP PRN anxiety #15 tabs 03/28/25 doxycycline hyclate 100 mg capsule 100 mg PO BID 10 days #20 caps 03/30/25 ondansetron 8 mg disintegrating 8 mg PO Q12H #30 tabs 03/30/25 tablet collagenase clostridium histo. 250 1 applic topical DAILY PRN wound 04/05/25 unit/gram topical ointment (Santyl) care #60 grams mupirocin 2 % topical ointment 1 applic topical BID infection 14 04/05/25 days #22 grams rivaroxaban 20 mg tablet (Xarelto) 20 mg PO QPMWITHMEAL #30 tabs 04/06/25 torsemide 20 mg tablet 40 mg (2 x 20 mg) PO QID 30 days 04/06/25 #240 tabs cefdinir 300 mg capsule 300 mg PO BID 10 days #20 caps 04/08/25 sulfamethoxazole 800 1 tab PO BID infection 14 days #28 04/11/25 mg-trimethoprim 160 mg tablet tabs (Bactrim DS) Allergies Allergy/AdvReac Type Severity Reaction Status Date / Time vancomycin AdvReac Severe Redness of Verified 04/06/25 10:28 Skin clindamycin AdvReac Mild Nausea Verified 04/06/25 10:28 doxycycline AdvReac Mild Upset Verified 04/06/25 10:28 stomach, heartbur PFSH PFSH Disclaimer: The information contained in this section may have been updated after the patient was seen, as this information can be updated by other users. 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 Tachycardia Bilateral knee pain DDD (degenerative disc disease), lumbar Depression Morbid obesity with body mass index of 70 and over in adult CHF (congestive heart failure) COPD (chronic obstructive pulmonary disease) Diabetes Dyspnea BMI 60.0-69.9, adult Obesity Anxiety disorder Hypertension Diabetes type 2, uncontrolled Surgical History S/P gastric sleeve procedure History of gastric bypass Family History Father Cancer Other No significant family history Social History Smoking Status: Never smoker alcohol intake: former year quit: 2021 counseling given: Yes counseling provided: provider counseling substance use type: denies use current occupational status: unemployed and disabled Travel in the last 8 weeks?: None household members: spouse and children housing: house marital status: number of children: 1 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 current occupational exposures/hazards: No pets and animals: Yes pets and animals: cat(s) diet: other caffeine: Yes physical activity: none Have you lived/traveled outside US in past 30 days?: No Contact w/someone who lives/traveled outside US past 30 days?: No Exposure to someone with infectious disease in past 14 days?: No Do you have a fever (greater than 100.4 F or 38 C)?: No Have you tested positive for COVID-19?: No Exposed to someone with COVID-19 in past 14 days?: No Do you have a sore throat?: No Do you have a cough?: No Do you have any weakness?: No Do you have any diarrhea?: No Are you experiencing any unusual bleeding?: No Do you have any muscle aches/pain?: No Do you have any abdominal pain?: No Are you experiencing loss of taste or smell?: No Other Medical History Have you received the Flu Vaccine for this season: No Have you received the Pneumonia Vaccine: Yes ROS Obtained: Yes Systems reviewed as appropriate & no additional complaints except as documented Physical Exam General General appearance: other (See MDM) Respiratory Respiratory exam: Present other (See MDM) Cardiovascular Cardiovascular exam: Present other (See MDM) Neurological Exam Neurological exam: Present other (See MDM) Medical Decision Making Medical Records Medical records reviewed: Yes I reviewed the patient's medical records. Screening: Per USPSTF and CDC recommendations, given the prevalence of disease in our region, it is our hospital?s policy to screen for HIV and viral Hepatitis for all patients aged 18 and over and those with ongoing risk factors. Sy Inquiry Pt receiving controlled substance: No Sy was queried for this patient: No Vital Signs: 04/12/25 12:13 04/12/25 12:18 04/12/25 12:30 Temperature 98.5 F Temperature Source Oral Pulse Rate 80 74 Pulse Rate [Right Radial] 79 Respiratory Rate 18 18 Blood Pressure 148/73 H 149/89 H Blood Pressure [Right Arm] 138/78 Blood Pressure Mean 98 Blood Pressure Mean [Right Arm] 98 Blood Pressure Source [Right Arm] Automatic Cuff Blood Pressure Position [Right Arm] Supine 02 Sat by Pulse Oximetry 96 97 94 L Oxygen Delivery Method Room Air 04/12/25 13:00 04/12/25 13:30 04/12/25 14:00 Temperature Temperature Source Pulse Rate 79 64 79 Pulse Rate [Right Radial] Respiratory Rate Blood Pressure 135/83 148/73 H 131/84 Blood Pressure [Right Arm] Blood Pressure Mean 99 98 101 Blood Pressure Mean [Right Arm] Blood Pressure Source [Right Arm] Blood Pressure Position [Right Arm] 02 Sat by Pulse Oximetry 95 93 L 96 Oxygen Delivery Method Lab Data Lab Results 04/12/25 12:42: WBC 9.0, RBC 4.87, Hgb 11.2 L, Hct 37.3 L, MCV 76.6 L, MCH 23.0 L, MCHC 30.0 L, RDW 19.0 H, Plt Count 277, MPV 8.9, Neut % (Auto) 80.0, Lymph % (Auto) 10.9, Bandera % (Auto) 6.8, Eos % (Auto) 1.7, Baso % (Auto) 0.2, Neut # (Auto) 7.2, Lymph # (Auto) 1.0, [place] # (Auto) 0.6, Eos # (Auto) 0.2, Baso # (Auto) 0.0, Sodium 133 L, Potassium 3.1 L, Chloride 84 L, Carbon Dioxide 38 H, Anion Gap 14.1, BUN 12, Creatinine 0.90, Estimated Creat Clear 111, Estimated GFR 90, Est GFR ( Amer) 109, Glucose 124 H, Calcium 9.6, Total Bilirubin 1.0, AST 22, ALT 18, Alkaline Phosphatase 79, Troponin I < 0.01, NT-Pro-B Natriuret Pep 54.4, Total Protein 8.2, Albumin 4.2, Globulin 4.0 H, Albumin/Globulin Ratio 1.1 04/12/25 12:42 04/12/25 12:42 Orders (Tests/Meds): ED MEDICATIONS Generic Name Dose Route Start Last Admin Trade Name Sarah PRN Reason Stop Dose Admin Acetaminophen 650 mg 04/12/25 14:25 Acetaminophen 325mg Tab PO 05/12/25 14:24 Q4HP PRN Fever or Mild Pain (1-3) Hydrocodone Bitart/Acetaminophen 1 tab 04/12/25 14:25 Hydrocodone/Apap 5/325 Mg Tablet PO 05/12/25 14:24 Q4HP PRN Mild to Moderate Pain (1-6) Bumetanide 10 mg/ Sodium 100 mls @ 10 mls/hr 04/12/25 14:00 Chloride IV 05/12/25 13:59 .Q10H KATHE Protocol Insulin Human Lispro 0 unit 04/12/25 16:30 Humalog 100 Units/Ml 10ml Vial (Ssi) SUBCUT 05/12/25 16:29 ACHS KATHE Protocol Ondansetron HCl 4 mg 04/12/25 14:25 Ondansetron 4mg/2ml Vial IV 05/12/25 14:24 Q8HP PRN Nausea Discontinued Medications Generic Name Dose Route Start Last Admin Trade Name Sarah PRN Reason Stop Dose Admin Meropenem 1 gm/ Sodium 100 mls @ 100 mls/hr 04/12/25 13:09 04/12/25 14:25 Chloride IV 04/12/25 13:10 100 mls/hr ONCE ONE Administration ORDERS Category Date Time Status CXR --portable [XR chest portable] Stat Exams 04/12/25 12:29 Completed BNP [NT Pro Brain Natriuretic Pep.] Stat Lab 04/12/25 12:42 Completed Basic Metabolic Panel AMLAB Lab 04/14/25 06:00 Ordered Basic Metabolic Panel AMLAB Lab 04/15/25 06:00 Ordered CBC w/Auto Diff [Complete Blood Count Auto Diff] Stat Lab 04/12/25 12:42 Completed CMP [Comprehensive Metabolic Panel] Stat Lab 04/12/25 12:42 Completed Complete Blood Count Auto Diff AMLAB Lab 04/13/25 06:00 Ordered Complete Blood Count Auto Diff AMLAB Lab 04/14/25 06:00 Ordered Complete Blood Count Auto Diff AMLAB Lab 04/15/25 06:00 Ordered Comprehensive Metabolic Panel AMLAB Lab 04/13/25 06:00 Ordered Hemoglobin A1C Stat Lab 04/12/25 14:30 Ordered Magnesium AMLAB Lab 04/13/25 06:00 Ordered TSH [Thyroid Stimulating Hormone] Stat Lab 04/12/25 14:30 Ordered Troponin I Q3H Lab 04/12/25 15:30 Ordered Troponin I Q3H Lab 04/12/25 18:30 Ordered Troponin I Stat Lab 04/12/25 12:42 Completed Blood Culture Stat Micro 04/12/25 12:52 Received Medical Decision Narrative: In summary, this is a 49-year-old male patient who is presented to the emergency department today for evaluation of ESBL E. coli urinary tract infection as well as dyspnea and fluid overload that is refractory to increasing dose of torsemide at home. Patient's comorbidities include a past medical history of hypertension, hyperlipidemia, diabetes, paroxysmal A-fib on Xarelto, and HFpEF which is currently not at goal therapy and increases this patient risk for morbidity. On initial evaluation the patient he was sitting upright in no acute distress and was nontoxic in appearance. He is hemodynamically stable, saturating well on room air, and is neurologically intact. On physical examination of the patient he is morbidly obese. Breath sounds are decreased bilaterally, likely secondary to body habitus. Heart sounds are normal. He has no tenderness of his abdomen. He is profoundly volume overloaded in his bilateral lower extremities extending up to the thighs. Differential diagnosis includes urinary tract infection, pyelonephritis, ESBL infection, heart failure exacerbation, ACS/VT, among others. Workup was initiated with hematologic labs as well as a chest x-ray. Labs personally interpreted by me demonstrate mild hypokalemia with a potassium of 3.1. Otherwise the patient has no leukocytosis, no actionable anemia, no evidence of acute kidney injury. Patient's troponin is less than 0.01. His BNP is 54, however this can be confounded by his morbid obesity. We have treated the patient with 1 g of meropenem for ESBL E. coli found on his prior urine culture. I have reviewed prior notes from the cardiology clinic. In these notes they discussed that the patient may necessitate admission in the future if he is refractory to outpatient torsemide. Patient does not seem to be responding well to torsemide at home and looks profoundly volume overloaded in his lower extremities. Therefore I had an interactive discussion with the cardiology service who evaluated the patient the emergency department. After our discussion their evaluation they agree that he necessitates admission for diuresis. They requested that we admit him to the medicine service and start him on a Bumex drip at 1 mg/h. I have had an interactive discussion with the internal medicine service who has agreed to evaluate the patient in the emergency department. After our discussion and their evaluation they have agreed to admit the patient to their service and accept primary possibility patient moving forward. Critical Care Critical Care Time Critical Care Time: No
--- NOTE | 2025-04-12 12:36 | ECG_ITS ---
APPROVED REPORT Exam: Resting ECG HR:81 bpm ECG Measurements Heart Rate 81 AXES NH 173 P 16 QRSd 170 QRS -42 QT 448 T 57 QTc 485 Conclusion Sinus rhythm Left axis Wide QRS with right bundle branch morphology No STEMI Electronically signed by : Nate Keys, 04/12/2025 16:49:24
--- OUTSIDE RECORDS SUMMARY | 2025-04-12 12:44 | XMS_ITS | Clinical Summary ---
Author Organization [facility] Address [address] [place] [address] Care Team Providers Care Lift Team Technician Name Role Phone Malcolm Hayward ADALIGSA Primary Care Provider Allergies No known active [...] 6 hours as needed for pain. Under [place] law, monthly prescriptions (30 days) can be refilled at 25 days and three-month prescriptions (90 days) at 80 days. Please contact the insurance company with questions if refills are denied. 100 tablet 12/18/19 25 Active polyethylene glycol (Miralax) 17 g packet Take 17 g by mouth daily. 30 packet 12/18/19 25 Active HYDROcodone-acetam inophen ([place]) 10-325 MG tablet Take 1 tablet by [...] 02/23/20 25 Active Insulin Pen Needle (Pen [place]) 31G X 5 MM [facility] USE TO INJECT [...] Department Care Team Description 02/27/2025 Refill [facility] Endocrinology [address] [place] [address] Iveth Hurd 02/27/2025 Telephone [facility] Endocrinology [address] [place] [address] Divine Archer APRN 02/21/2025 Refill [facility] Endocrinology [address] [place] [address] Pratibha Forde PA 01/10/2025 12:00 PM EDT Office Visit [facility] General Surgery [address] [place] [address] Abigail King, ADALGISA Dermatitis associated with moisture [...] any time in the past 12 m [facility], were you homeless or living in a jail (including now)? No 12/16/2024 Utilities Answer Date Recorded In the past 12 months has th e [employer], gas, oil, or water company threatened to [...] 2022 Sigmoidoscopy 2022 UK[facility]-Colorectal Cancer Screening 2022 [id number] Vaccine (3 - 2024- season) 2025 02/22/2021, [...] 10.9(H) <5.7 % 12/13/2024 11:55 AM EDT [facility] Blood Venous blood specimen / Unknown Venipuncture / Unknown 12/12/2024 11:46 PM EDT 12/13/2024 12:06 AM EDT Narrative [facility] - 12/13/2024 11:55 AM EDT HA1C Interpretive Data: Diagnosis of Diabetes: Diabetic > or = 6.5% Pre-diabetic 5.7 to 6.4% Non-diabetic < or = 5.6% Glycemic Targets for Type I and Type II Diabetics: Non- Adults <7.0% Adults <6.0% Children and Adolescents <7.5% Source: [place] [employer]. Standards of medical care in diabetes,2017. Diabetes Care.2017:40 (suppl 1):S1-S135. Nicole Casas MD LAB BLOOD ORDERABLES Melba don Result [facility] [address] [place] [address] from Last 3 Months or Most Recently Relevant to Health Maintenance Insurance [facility] MEDIC[facility] Advance Directives * Full Code (Latest Code Status on File) Date Activated Date Inactivated Comments 12/12/2024 11:07 PM 12/17/2024 3:22 PM Question Answer Comments I have reviewed the capacity from the link above and, if needed, have updated to appropriate status: Yes Care Teams Lift Team Technician Relationship Specialty Start Date End Date Malcolm Hayward APRN [address] [place] [address] [place] [address] PCP - General 09/21/23
--- OUTSIDE RECORDS SUMMARY | 2025-04-12 12:44 | XMS_ITS | Encounter Summary ---
Author Organization Healthcare Address [address] [id number] Care Team Providers Care Liability Claims Representative Name Role Phone Malcolm Hayward SERVICING REP Primary Care Provider [phone] Reason for Visit * Reason Comments Med Refill Encounter Details Date Type Department Care Team (Late st Contact Info) Description 12/31/2023 Refill [facility] [address] [place] [address] Earline Loaiza, SERVICING REP [address] [facility] [address] [place] [address] Type 2 diabetes mellitus (CMS/HCC) [...] documented as of this encounter Care Teams Liability Claims Representative Relationship Specialty Start Date End Date Malcolm Hayward APRN [address] [place] [address] PCP - General 09/21/23 documented as of this encounter
--- OUTSIDE RECORDS SUMMARY | 2025-04-12 12:44 | XMS_ITS | Encounter Summary ---
Author Organization Healthcare Address [address] [id number] Care Team Providers Care Deck Lid Fitter Name Role Phone Malcolm Hayward ADALGISA Primary Care Provider [phone] Reason for Visit * Reason Onset Date Comments Med Refill 02/21/2025 Encounter Details Date Type Department Care Team (Late st Contact Info) Description 02/21/2025 Refill [facility] Endocrinology [address] [place] [address] Pratibah Forde, PA [address] [facility] [place] [address] Social History Tobacco Use Types [...] any time in the past 12 m [facility], were you homeless or living [...] documented as of this encounter Care Teams Deck Lid Fitter Relationship Specialty Start Date End Date Malcolm Hayward APRN [address] [place] [address] PCP - General 09/21/23 documented as of this encounter
--- OUTSIDE RECORDS SUMMARY | 2025-04-12 12:44 | XMS_ITS | Clinical Summary ---
Author Organization [facility] Address [address] [place] [address] Care Team Providers Care Academic Specialist Name Role Phone Provider, No Known Primary [...] patient's age to complete this topic Insurance [facility] PPO Care Teams Academic Specialist Relationship Specialty Start Date End Date Provider, No Known [facility] [place] [address] PCP - General 02/11/21
--- OUTSIDE RECORDS SUMMARY | 2025-04-12 12:44 | XMS_ITS | Encounter Summary ---
Author Organization Healthcare Address [address] [id number] Care Team Providers Care Thermo Cementing Folder Operator Name Role Phone Malcolm Hayward GREENS LABORER Primary Care Provider [phone] Reason for Visit * Reason Comments Med Refill Encounter Details Date Type Department Care Team (Late st Contact Info) Description 07/07/2024 Refill [facility] [address] [place] [address] Mayra Torres PA [address] [address] Type 2 diabetes mellitus (CMS/HCC) [...] documented as of this encounter Care Teams Thermo Cementing Folder Operator Relationship Specialty Start Date End Date Malcolm Hayward APRN [address] [place] [address] PCP - General 09/21/23 documented as of this encounter
--- OUTSIDE RECORDS SUMMARY | 2025-04-12 12:44 | XMS_ITS | Encounter Summary ---
Author Organization Healthcare Address [address] [id number] Care Team Providers Care Special Needs Babysitter Name Role Phone Malcolm Hayward INFORMATION SERVICES TECH Primary Care Provider [phone] Encounter Details Date Type Department Care Team (Late st Contact Info) Description 02/27/[facility] [address] [place] [address] Divine Archer, INFORMATION SERVICES TECH 2[address] [facility] [address] [place] [address] Social History Tobacco Use Types [...] any time in the past 12 m [facility], were you homeless or living in [...] as of this encounter Care Teams Special Needs Babysitter Relationship Specialty Start Date End Date Malcolm Hayward APRN [address] [place] [address] PCP - General 09/21/23 documented as of this encounter
--- OUTSIDE RECORDS SUMMARY | 2025-04-12 12:44 | XMS_ITS | Referral Summary ---
Author Organization [employer] ([place], [place], [place], [place]) Address [address] [place] [address] Care Team Providers Care Detective Narcotics And Vice Name Role Phone Malcolm Hayward APRN Primary Care Provider [phone] Allergies No known active allergies Medications atorvastatin [...] daily. Max Daily Amount: 1,800 mg Active HYDROcodone-mayr taminophen ([place]) 10-325 mg per tablet Take [...] A B BLUE CROSS/BLUE SHIELD Care Teams Detective Narcotics And Vice Relationship Specialty Start Date End Date Malcolm Hayward, ADALGISA [address] [place] [address] PCP - General Nurse Practitioner 12/20/24
--- OUTSIDE RECORDS SUMMARY | 2025-04-12 12:44 | XMS_ITS | Encounter Summary ---
Author Organization [facility] Address [address] [id number] Care Team Providers Care Hand Mica Plate Layer Name Role Phone Malcolm Hayward METALLOGRAPHER Primary Care Provider [phone] Reason for Visit * Reason Comments Med Refill Encounter Details Date Type Department Care Team (Late st Contact Info) Description 12/02/2024 Refill [facility] Endocrinology [address] [place] [address] Divine Archer, METALLOGRAPHER [address] [facility] [address] [place] [address] Social History Tobacco Use Types [...] documented as of this encounter Care Teams Hand Mica Plate Layer Relationship Specialty Start Date End Date Malcolm Hayward APRN [address] [place] [address] PCP - General 09/21/23 documented as of this encounter
--- OUTSIDE RECORDS SUMMARY | 2025-04-12 12:44 | XMS_ITS | Encounter Summary ---
Author Organization Healthcare Address [address] [id number] Care Team Providers Care Garment Liner Name Role Phone Malcolm Hayward ADALGISA Primary Care Provider [phone] Reason for Visit * Reason Onset Date Comments Med Refill 02/27/2025 Encounter Details Date Type Department Care Team (Late st Contact Info) Description 02/27/2025 Refill [place] [facility] Endocrinology [address] [place] [address] Iveth Hurd Social History Tobacco [...] were you homeless or living in a [facility] (including now)? No 12/16/2024 Utilities Answer Date [...] documented as of this encounter Care Teams Garment Liner Relationship Specialty Start Date End Date Malcolm Hayward APRN [address] [place] [address] [place] [address] PCP - General 09/21/23 documented as of this encounter
--- OUTSIDE RECORDS SUMMARY | 2025-04-12 12:44 | XMS_ITS | Clinical Summary ---
Author Organization [employer] ([place], [place], [place], [place]) Address [address] [place] [address] Care Team Providers Care Ski Instructor Name Role Phone Malcolm Hayward APRN Primary Care Provider [phone] Allergies No known active allergies Medications atorvastatin [...] 04/26/2020, 12/24/2016 Insurance MEDICARE PART A B /[facility] Care Teams Ski Instructor Relationship Specialty Start Date End Date Malcolm Hayward APRN [address] [place] [address] PCP - General Nurse Practitioner 12/20/24
[2025-04-12 12:56] LABS: Hematocrit 37.3 % (42.0-52.0); Hemoglobin 11.2 g/dL (14.1-18.0); Immature Granulocytes % 0.4 %; Mean Corpuscular HGB Conc 30.0 g/dL (31.8-35.4); Mean Corpuscular Hemoglobin 23.0 pg (27.0-31.2); Mean Corpuscular Volume 76.6 fl (80-94); Nucleated Red Blood Cells % 0 %; Platelet Count 277 K/mm3 (142-424); Red Blood Count 4.87 M/mm3 (4.60-6.20); Red Cell Distribution Width-SD 51.3 fL; White Blood Count 9.0 K/mm3 (4.8-10.8)
[2025-04-12 13:00] LABS: Alanine Aminotransferase 18 U/L (12-78); Albumin Level 4.2 g/dl (3.5-5.0); Albumin/Globulin Ratio 1.1 (1.1-1.8); Alkaline Phosphatase 79 U/L (38-126); Anion Gap 14.1 mEq/L (5-15); Aspartate Amino Transferase 22 U/L (17-59); Bilirubin,Total 1.0 mg/dl (0.2-1.3); Blood Urea Nitrogen 12 mg/dl (9-20); Calcium 9.6 mg/dl (8.4-10.2); Carbon Dioxide 38 mmol/L (22.0-30.0); Chloride 84 mmol/L (98-107); Creatinine Clearance Estimated 111 mL/min (50-200); Creatinine,Serum 0.90 mg/dl (0.66-1.25); Estimated Glomerular Filt Rate 90 ml/min (>60); GFR (African American) 109 ML/MIN (>60); Globulin 4.0 g/dL (1.3-3.2); Glucose 124 mg/dl (74-100); Potassium 3.1 mmoL/L (3.5-5.1); Sodium 133 mmol/L (136-145); Total Protein,Serum 8.2 g/dl (6.3-8.2)
[2025-04-12 13:12] LABS: NT Pro Brain Natriuretic Pep. 54.4 pg/mL (0-125)
[2025-04-12 13:25] LABS: Troponin I < 0.01 ng/ml (0.00-0.034)
--- NOTE | 2025-04-12 14:06 | EXP.CARD.CON ---
History of Present Illness History of Present Illness Consult date: 04/12/25 Requesting physician: Benedict Negrete Chief complaint: weakness, edema History of present illness: 49-year-old white male established patient of our practice advised to present to the emergency room for outpatient UA positive for ESBL. Patient being admitted for IV antibiotics and we are consulted to help manage his edema while admitted. Mr. Russell is well-known patient of our office with history of severe morbid obesity, BMI 77. He has associated HFpEF with frequent volume overload. Historically normal 2D echo. He does have paroxysmal atrial fibrillation which is well-controlled. Obstructive sleep apnea with mixed compliance. Presented to the office last week with complaint of 30 pound weight gain since the summer and severe bilateral lower extremity skin breakdown. Also was having trouble with bladder emptying and was due to see urology. I offered admission with IV diuretics and Barber catheter placement at that time but he declined. We doubled diuretics and he was due to see urology outpatient. In the interim he had a UA which grew out ESBL bacteria and he was advised to present to the hospital for admission today. ER physician called me and states patient will be placed on meropenem. Patient has no new CV questions or concerns for me at this time. His vitals are stable. [facility] Disclaimer: The information contained in this section may have been updated after the patient was seen, as this information can be updated by other users. 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 Tachycardia Bilateral knee pain DDD (degenerative disc disease), lumbar Depression Morbid obesity with body mass index of 70 and over in adult CHF (congestive heart failure) COPD (chronic obstructive pulmonary disease) Diabetes Dyspnea BMI 60.0-69.9, adult Obesity Anxiety disorder Hypertension Diabetes type 2, uncontrolled Surgical History S/P gastric sleeve procedure History of gastric bypass Family History Father Cancer Other No significant family history Social History Smoking Status: Never smoker alcohol intake: former year quit: 2021 counseling given: Yes counseling provided: provider counseling substance use type: denies use current occupational status: unemployed and disabled Travel in the last 8 weeks?: None household members: spouse and children housing: house marital status: number of children: 1 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 current occupational exposures/hazards: No pets and animals: Yes pets and animals: cat(s) diet: other caffeine: Yes physical activity: none Have you lived/traveled outside [place] in past 30 days?: No Contact w/someone who lives/traveled outside US past 30 days?: No Exposure to someone with infectious disease in past 14 days?: No Do you have a fever (greater than 100.4 F or 38 C)?: No Have you tested positive for COVID-19?: No Exposed to someone with COVID-19 in past 14 days?: No Do you have a sore throat?: No Do you have a cough?: No Do you have any weakness?: No Do you have any diarrhea?: No Are you experiencing any unusual bleeding?: No Do you have any muscle aches/pain?: No Do you have any abdominal pain?: No Are you experiencing loss of taste or smell?: No Review of Systems Constitutional Constitutional: Reports fatigue and Reports weakness Eyes Eyes: Denies loss of vision ENT Ears, Nose, Mouth, and Throat: Denies hearing loss and Denies vertigo *Cardiovascular Cardiovascular: Denies chest pain, Reports dyspnea, Reports leg edema and Denies syncope *Respiratory Respiratory: Denies cough and Reports dyspnea *Gastrointestinal Gastrointestinal: Denies change in stool character, Denies nausea and Denies vomiting *Genitourinary Genitourinary: Denies difficulty urinating *Musculoskeletal Musculoskeletal: Denies muscle weakness Integumentary/Breasts Skin/Breast: Denies changing lesions *Neurologic Neurologic: Denies loss of vision, Denies syncope, Denies vertigo and Reports weakness Endocrine Endocrine: Reports fatigue Exam Data for Last 24 hours Vital signs and Labs for Last 24 Hours: Temp Pulse Resp BP Pulse Ox O2 Del Method 98.5 F 80 18 148/73 H 97 Room Air 04/12/25 12:13 04/12/25 12:18 04/12/25 12:18 04/12/25 12:18 04/12/25 12:18 04/12/25 12:13 Laboratory Results - last 24 hr 04/12/25 12:42: WBC 9.0, RBC 4.87, Hgb 11.2 L, Hct 37.3 L, MCV 76.6 L, MCH 23.0 L, MCHC 30.0 L, RDW 19.0 H, Plt Count 277, MPV 8.9, Neut % (Auto) 80.0, Lymph % (Auto) 10.9, [place] % (Auto) 6.8, Eos % (Auto) 1.7, Baso % (Auto) 0.2, Neut # (Auto) 7.2, Lymph # (Auto) 1.0, [place] # (Auto) 0.6, Eos # (Auto) 0.2, Baso # (Auto) 0.0, Sodium 133 L, Potassium 3.1 L, Chloride 84 L, Carbon Dioxide 38 H, Anion Gap 14.1, BUN 12, Creatinine 0.90, Estimated Creat Clear 111, Estimated GFR 90, Est GFR ( Amer) 109, Glucose 124 H, Calcium 9.6, Total Bilirubin 1.0, AST 22, ALT 18, Alkaline Phosphatase 79, Troponin I < 0.01, NT-Pro-B Natriuret Pep 54.4, Total Protein 8.2, Albumin 4.2, Globulin 4.0 H, Albumin/Globulin Ratio 1.1 I & O for Last 24 hours: Intake & Output 04/09/25 04/10/25 04/11/25 04/12/25 23:59 23:59 23:59 23:59 Weight 570 lb Meds Home Medications and Allergies Home Medications ?Medication ?Instructions ?Recorded ?Confirmed ?Type pen needle, diabetic 32 gauge x #100 ea 09/16/23 04/06/25 Rx 5/32 (Comfort EZ Pen [place]) insulin syringe-needle U-100 1 mL #10 ea 02/18/24 04/06/25 History 30 gauge x 1/2 (BD Insulin Syringe Ultra-Fine) Held on 03/21/25. Instructions: Home Medication placed on hold at Doctor's office metformin 1,000 mg tablet 1,000 mg PO BID 02/18/24 04/06/25 History diltiazem HCl 120 mg 120 mg PO DAILY #90 caps 06/23/24 04/06/25 Rx capsule,extended release 24 hr albuterol sulfate 90 mcg/actuation 2 puff inhalation Q4-6H PRN 09/27/24 04/06/25 Rx aerosol inhaler shortness of breath or wheezing #8.5 grams bisoprolol fumarate 5 mg tablet 5 mg PO BID 12/08/24 04/06/25 History trazodone 100 mg tablet 100 mg PO HS 12/08/24 04/06/25 History venlafaxine 150 mg 150 mg PO DAILY 12/08/24 04/06/25 History capsule,extended release 24 hr semaglutide 0.25 mg or 0.5 mg (2 0.25 mg (0.368 mL) SQ WEEKLY #3 mL 12/09/24 04/06/25 Rx mg/3 mL) subcutaneous pen injector (Ozempic) omeprazole 40 mg capsule,delayed 40 mg PO BID #90 caps 12/22/24 04/06/25 Rx release insulin human U-100 NPH-regulr 90 unit SQ DAILY 12/26/24 04/06/25 History 70-30 mix 100 unit/mL subcutaneous susp (Novolin 70/30 U-100 Insulin) Held on 03/21/25. Instructions: Home Medication placed on hold at Doctor's office cariprazine 3 mg capsule (Vraylar) 3 mg PO DAILY 02/23/25 04/06/25 History nystatin-triamcinolone 100,000 1 applic topical BID 30 days #30 02/24/25 04/06/25 Rx unit/g-0.1 % topical cream grams tamsulosin 0.4 mg capsule (Flomax) 0.4 mg PO DAILY 90 days #90 caps 02/24/25 04/06/25 Rx spironolactone 100 mg tablet 100 mg PO DAILY #30 tabs 02/27/25 04/06/25 Rx (Aldactone) atorvastatin 40 mg tablet 40 mg PO HS #90 tabs 03/20/25 04/06/25 Rx Humulin R U-500 (Conc) Kwikpen 500 200 unit (0.4 mL) SQ BID #24 mL 03/21/25 04/06/25 Rx unit/mL (3 mL) subcutaneous (insulin regular hum U-500 conc) blood-glucose sensor (Dex[employer]ventional [employer] G7 #1 ea 03/21/25 04/06/25 Rx Sensor device) blood-glucose sensor (Dexcom G7 #3 ea 03/21/25 04/06/25 Rx Sensor device) blood-glucose,owner/photographer,cont #1 ea 03/21/25 04/06/25 Rx (Dexcom G7 Technical Support Analyst) gabapentin 600 mg tablet 600 mg PO TID #90 tabs 03/28/25 04/06/25 Rx hydrocodone 10 mg-acetaminophen 1 tab PO TIDP PRN pain #90 tabs 03/28/25 04/06/25 Rx 325 mg tablet lorazepam 1 mg tablet 1 mg PO DAILYP PRN anxiety #15 tabs 03/28/25 04/06/25 Rx spironolactone 50 mg tablet 50 mg PO 03/28/25 04/06/25 History doxycycline hyclate 100 mg capsule 100 mg PO BID 10 days #20 caps 03/30/25 04/06/25 Rx ondansetron 8 mg disintegrating 8 mg PO Q12H #30 tabs 03/30/25 04/06/25 Rx tablet collagenase clostridium histo. 250 1 applic topical DAILY PRN wound 04/05/25 04/06/25 Rx unit/gram topical ointment (Santyl) care #60 grams mupirocin 2 % topical ointment 1 applic topical BID infection 14 04/05/25 04/06/25 Rx days #22 grams rivaroxaban 20 mg tablet (Xarelto) 20 mg PO QPMWITHMEAL #30 tabs 04/06/25 04/06/25 Rx torsemide 20 mg tablet 40 mg (2 x 20 mg) PO QID 30 days 04/06/25 04/06/25 Rx #240 tabs cefdinir 300 mg capsule 300 mg PO BID 10 days #20 caps 04/08/25 Rx sulfamethoxazole 800 1 tab PO BID infection 14 days #28 04/11/25 04/11/25 Rx mg-trimethoprim 160 mg tablet tabs (Bactrim DS) New Prescriptions to Start Prescriptions: Allergies Allergy/AdvReac Type Severity Reaction Status Date / Time vancomycin AdvReac Severe Redness of Verified 04/06/25 10:28 Skin clindamycin AdvReac Mild Nausea Verified 04/06/25 10:28 doxycycline AdvReac Mild Upset Verified 04/06/25 10:28 stomach, heartbur Assessment and Plan *Assessment and plan (1) UTI (urinary tract infection): Status: Acute Category: Medical Code(s): N39.0 - Urinary tract infection, site not specified (2) Acute urinary retention: Status: Acute Category: Medical Code(s): R33.8 - Other retention of urine (3) Acute on chronic heart failure with preserved ejection fraction (HFpEF): Status: Acute Category: Medical Code(s): I50.33 - Acute on chronic diastolic (congestive) heart failure (4) Paroxysmal A-fib: Status: Resolved Category: Medical Code(s): I48.0 - Paroxysmal atrial fibrillation (5) Non-healing wound of lower extremity: Status: Acute Category: Medical Code(s): S81.809A - Unspecified open wound, unspecified lower leg, initial encounter Plan Acute on Chronic HFpEF - massive vol overload with weaping sarah and skin breakdown - known chronic recurring secondary to critical morbid obesity, BMI 77 - resume home meds - start Bumex 1mg/hr, daily labs and I/O PAF - SR here - Continue Bisoprolol, Diltiazem, Xarelto ESBL UTI and Urinary Retention - on IV Ab - Barber in place Morbid Obesity, BMI 77 - has failed gastric sleeve and GLP-1 - life limiting condition
--- NOTE | 2025-04-12 14:20 | PC.NURSE ---
speaking with the hospitalist about admission.
--- NOTE | 2025-04-12 14:23 | PC.NURSE ---
I called HS to request a bed for admission to the hospitalist for ESBL and fluid overload.
[2025-04-12] MEDS: MEROPENEM 1 GM in 0.9 % SODIUM CHLORIDE 100 ML IV ×2 (14:25→21:13)
--- NOTE | 2025-04-12 14:41 | PC.NURSE ---
report called to Kaylin Hernandez RN for room 200 at this time.
--- NOTE | 2025-04-12 14:50 | P.HP_ITS ---
<Statement entered by Sebastián Todd MD - 04/12/25 19:39> Rounded on patient after nurse practitioner. Personally examined and interviewed patient. Agree with exam findings and care plan as documented. History of Present Illness *Admission Date: 04/12/25 *Reason for visit:: legs swelling, UTI *History of present illness: Mr. Russell is a 49-year-old male who presented to the emergency department today due to a urinary tract infection for which culture and sensitivity showed positive for ESBL. In addition to this finding, patient was extremely edematous in bilateral lower extremities. Patient has been following with cardiology who has been titrating his torsemide, recently increasing it to 40 mg 4 times daily. Patient admits to only taking the medication approximately 3 times daily. Patient has a significant medical history of morbid obesity BMI >70, HFpEF, UTI, insulin-dependent diabetes, urinary retention, cellulitis bilateral lower extremities, BPH, A-fib, QUINN, osteoarthritis, chronic pain, DDD, depression, COPD, hypertension, and anxiety. Patient presented to the emergency department 3 days ago with complaints of acute urinary retention and balanitis. Findings on his urinalysis were consistent with UTI and he was discharged home on cefd inir. Cultures returned today and were positive for ESBL E. coli sensitive to meropenem/ertapenem, Zosyn, and tobramycin. In addition to UTI patient has been being followed by cardiology for fluid retention and HFpEF. Patient complains today of bilateral lower extremity edema from feet to mid thigh. He does deny shortness of breath, chest pain, abdominal pain, fevers, chills, nausea, vomiting, diarrhea. [facility] Disclaimer: The information contained in this section may have been updated after the patient was seen, as this information can be updated by other users. 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 Tachycardia Bilateral knee pain DDD (degenerative disc disease), lumbar Depression Morbid obesity with body mass index of 70 and over in adult CHF (congestive heart failure) COPD (chronic obstructive pulmonary disease) Diabetes Dyspnea BMI 60.0-69.9, adult Obesity Anxiety disorder Hypertension Diabetes type 2, uncontrolled Surgical History S/P gastric sleeve procedure History of gastric bypass Family History Father Cancer Other No significant family history Social History (Updated 04/12/25 @ 16:04 by Kathy Fleming RN) Smoking Status: Former smoker tobacco type: smokeless tobacco alcohol intake: former year quit: 2021 counseling given: Yes counseling provided: provider counseling substance use type: denies use current occupational status: unemployed and disabled Travel in the last 8 weeks?: None household members: spouse and children housing: house marital status: number of children: 1 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 current occupational exposures/hazards: No pets and animals: Yes pets and animals: cat(s) diet: other caffeine: Yes physical activity: none Other Medical History Have you received the Flu Vaccine for this season: No Have you received the Pneumonia Vaccine: Yes Review of Systems Constitutional Constitutional: Denies fever(s), Reports weakness and Reports weight gain Eyes Eyes: Denies loss of vision ENT Ears, Nose, Mouth, and Throat: Denies vertigo *Cardiovascular Cardiovascular: Denies chest pain, Denies dyspnea, Reports dyspnea on exertion, Reports leg edema, Reports leg ulcers, Reports pedal edema, Denies rapid heart rate and Denies syncope *Respiratory Respiratory: Denies chest congestion, Denies dyspnea and Reports dyspnea on exertion *Gastrointestinal Gastrointestinal: Denies abdominal pain, Denies constipation and Denies loose stools *Genitourinary Genitourinary: Denies dysuria Comments: rios catheter in place *Musculoskeletal Musculoskeletal: Reports back pain Integumentary/Breasts Skin/Breast: Reports erythema, Reports skin ulcer, Reports skin swelling and Reports wounds *Neurologic Neurologic: Denies loss of vision, Denies syncope, Denies vertigo and Reports weakness Meds Home Medications and Allergies Home Medications ?Medication ?Instructions ?Recorded ?Confirmed ?Type pen needle, diabetic 32 gauge x #100 ea 09/16/2304/06 Rx (Comfort EZ Pen Lindley) insulin syringe-needle U-100 1 mL #10 ea 02/18/2403/14 History 30 gauge x 1/2 (BD Insulin Syringe Ultra-Fine) Held on 03/21/25. Instructions: Home Medication placed on hold at Doctor's office metformin 1,000 mg tablet 1,000 mg PO BID 02/18/2408/06 History diltiazem HCl 120 mg 120 mg PO DAILY #90 caps 07/0504/12/25 Rx capsule,extended release 24 hr albuterol sulfate 90 mcg/actuation 2 puff inhalation Q 4-6H PRN 09/27/24 04/12/25 Rx aerosol inhaler shortness of breath or wheez ing #8.5 grams bisoprolol fumarate 5 mg tablet 5 mg PO BID 12/08/24 1 History trazodone 100 mg tablet 100 mg PO HS 12/08/24 History venlafaxine 150 mg 150 mg PO DAILY 12/08/2408/06 History capsule,extended release 24 hr semaglutide 0.25 mg or 0.5 mg (2 0.25 mg (0.368 mL) SQ WEEKLY #3 mL 12/09/24 04/12/25 Rx mg/3 mL) subcutaneous pen injector (Ozempic) omeprazole 40 mg capsule,delayed 40 mg PO BID #90 caps 12/22/24 04/12/25 Rx release cariprazine 3 mg capsule (Vraylar) 3 mg PO DAILY 02/2304/12/25 History nystatin-triamcinolone 100,000 1 applic topical BID 30 days #30 02/24/25 04/12/25 Rx unit/g-0.1 % topical cream grams tamsulosin 0.4 mg capsule (Flomax) 0.4 mg PO DAILY 90 days #90 caps 02/24/25 04/12/25 Rx spironolactone 100 mg tablet 100 mg PO DAILY #30 tabs 02/27/25 04/12/25 Rx (Aldactone) atorvastatin 40 mg tablet 40 mg PO HS #90 tabs 5 04/12/25 Rx Humulin R U-500 (Conc) Kwikpen 500 200 unit (0.4 mL) S Q BID #24 mL 03/21/25 04/12/25 Rx unit/mL (3 mL) subcutaneous (insulin regular hum U-500 conc) blood-glucose sensor ([employer] G7 #1 ea 03/21/25 5 Rx Sensor device) blood-glucose sensor ([employer] G7 #3 ea 03/21/25 5 Rx Sensor device) blood-glucose,supervisor inspection department,cont #1 ea 03/21/25 04/06/25 Rx ([employer] G7 Workday Director) gabapentin 600 mg tablet 600 mg PO TID #90 tabs 03/2804/12/25 Rx hydrocodone 10 mg-acetaminophen 1 tab PO TIDP PRN pain #90 tabs 03/28/25 04/12/25 Rx 325 mg tablet lorazepam 1 mg tablet 1 mg PO DAILYP PRN anxiety # 15 tabs 03/28/25 04/12/25 Rx ondansetron 8 mg disintegrating 8 mg PO Q12H #30 tabs 03/30/25 04/12/25 Rx tablet collagenase clostridium histo. 250 1 applic topical DA DIVYA PRN wound 04/05/25 04/12/25 Rx unit/gram topical ointment (Santyl) care #60 grams mupirocin 2 % topical ointment 1 applic topical BID in fection 14 04/05/25 04/12/25 Rx days #22 grams rivaroxaban 20 mg tablet (Xarelto) 20 mg PO QPMWITHMEA L #30 tabs 04/06/25 04/12/25 Rx torsemide 20 mg tablet 40 mg (2 x 20 mg) PO QID 30 days 04/06/25 04/12/25 Rx #240 tabs cefdinir 300 mg capsule 300 mg PO BID 10 days #20 ca ps 04/08/25 04/12/25 Rx sulfamethoxazole 800 1 tab PO BID infection 14 da ys #28 04/11/25 04/12/25 Rx mg-trimethoprim 160 mg tablet tabs (Bactrim DS) New Prescriptions to Start Prescriptions: Allergies Allergy/AdvReac Type Severity Reaction Status Date / Time vancomycin AdvReac Severe Redness of Verified 04/06/25 10:28 Skin clindamycin AdvReac Mild Nausea Verified 04/06/25 10:28 doxycycline AdvReac Mild Upset Verified 04/06/25 10:28 stomach, heartbur Exam Data for Last 24 hours Vital signs and Labs for Last 24 Hours: Temp Pulse Resp BP Pulse Ox O2 Del Method 98.5 F 79 18 131/84 96 Room Air 04/12/25 12:13 04/12/25 14:00 04/12/25 12:18 04/12/25 14:00 04/12/25 14:00 04/12/25 12:13 Laboratory Results - last 24 hr 04/12/25 12:42: WBC 9.0, RBC 4.87, Hgb 11.2 L, Hct 37.3 L, MCV 76.6 L, MCH 23.0 L, MCHC 30.0 L, RDW 19.0 H, Plt Count 277, MPV 8.9, Neut % (Auto) 80.0, Lymph % (Auto) 10.9, [place] % (Auto) 6.8, Eos % (Auto) 1.7, Baso % (Auto) 0.2, Neut # (Auto) 7.2, Lymph # (Auto) 1.0, [place] # (Auto) 0.6, Eos # (Auto) 0.2, Baso # (Auto) 0.0, Sodium 133 L, Potassium 3.1 L, Chloride 84 L, Carbon Dioxide 38 H, Anion Gap 14.1, BUN 12, Creatinine 0.90, Estimated Creat Clear 111, Estimated GFR 90, Est GFR ( Amer) 109, Glucose 124 H, Calcium 9.6, Total Bilirubin 1.0, AST 22, ALT 18, Alkaline Phosphatase 79, Troponin I < 0.01, NT-Pro-B Natriuret Pep 54.4, Total Protein 8.2, Albumin 4.2, Globulin 4.0 H, Albumin/Globulin Ratio 1.1 I & O for Last 24 hours: Intake & Output 04/09/25 04/10/25 04/11/25 04/12/25 23:59 23:59 23:59 23:59 Weight 258.548 kg Constitutional Constitutional: morbidly obese, chronically ill appearing and cooperative *Routine HEENT Exam Head: Present normocephalic Eye: Present EOMI ENT: Present mucous membranes moist *Routine Neck Exam Neck: Present supple and full ROM *Routine Respiratory Exam Respiratory: Present decreased breath sounds, CTA bilaterally, able to speak in complete sentences and symmetric chest movement; Absent wheezes or crackles *Routine Cardiovascular Exam Cardiovascular: Present RRR; Absent murmur *Routine Abdominal Exam Abdominal: Present soft, normoactive bowel sounds and obese; Absent tenderness or distended *Routine Rectal Exam Rectal:: deferred *Routine Genitalia Exam Genitalia:: deferred Comment:: Rios catheter in place *Routine Extremities Exam Extremities: Present edema (Lateral lower extremity to mid thigh 3+) *Routine Skin Exam Skin: Present erythema, lesions and wounds (Bilateral lower extremity) *Routine Neurological Exam Neurological: Present alert, oriented X3, vision grossly intact, hearing grossly intact and normal speech Routine Psychiatric Exam Psychiatric: Present normal affect Assessment and Plan *Assessment and plan (1) Acute urinary retention: Status: Acute Category: Medical Code(s): R33.8 - Other retention of urine (2) Acute on chronic heart failure with preserved ejection fraction (HFpEF): Status: Acute Category: Medical Code(s): I50.33 - Acute on chronic diastolic (congestive) heart failure (3) Paroxysmal A-fib: Status: Resolved Category: Medical Code(s): I48.0 - Paroxysmal atrial fibrillation (4) Non-healing wound of lower extremity: Status: Acute Category: Medical Code(s): S81.809A - Unspecified open wound, unspecified lower leg, initial encounter (5) UTI due to extended-spectrum beta lactamase (ESBL) producing Escherichia coli: Status: Acute Category: Medical Code(s): N39.0 - Urinary tract infection, site not specified; B96.29 - Other Escherichia coli [E. coli] as the cause of diseases classified elsewhere; Z16.12 - Extended spectrum beta lactamase (ESBL) resistance (6) Body mass index [BMI] 70 or greater, adult: Status: Acute Category: Medical Code(s): Z68.45 - Body mass index [BMI] 70 or greater, adult (7) Hypertension: Status: Chronic Qualifiers: Hypertension type: essential hypertension Qualified Code(s): I10 - Essential (primary) hypertension Category: Medical Code(s): I10 - Essential (primary) hypertension (8) Blister of left lower leg: Status: Acute Qualifiers: Encounter type: initial encounter Qualified Code(s): S80.822A - Blister (nonthermal), left lower leg, initial encounter Category: Medical Code(s): S80.822A - Blister (nonthermal), left lower leg, initial encounter (9) Diabetic foot ulcer: Status: Acute Qualifiers: Diabetes mellitus type: type 2 Diabetic foot ulcer location: unspecified part of foot Laterality: right Non-pressure ulcer stage: with fat layer exposed Qualified Code(s): E11.621 - Type 2 diabetes mellitus with foot ulcer; L97.512 - Non-pressure chronic ulcer of other part of right foot with fat layer exposed Category: Medical Code(s): E11.621 - Type 2 diabetes mellitus with foot ulcer; L97.509 - Non-pressure chronic ulcer of other part of unspecified foot with unspecified severity (10) Chronic a-fib: Status: Acute Category: Medical Code(s): I48.20 - Chronic atrial fibrillation, unspecified Plan Mr. Russell is a 49-year-old male who presented to the emergency department today due to a urinary tract infection for which culture and sensitivity showed positive for ESBL. In addition to this finding, patient was extremely edematous in bilateral lower extremities. Patient has been following with cardiology who has been titrating his torsemide, recently increasing it to 40 mg 4 times daily. Patient admits to only taking the medication approximately 3 times daily. Patient has a significant medical history of morbid obesity BMI >70, HFpEF, UTI, insulin-dependent diabetes, urinary retention, cellulitis bilateral lower extremities, BPH, A-fib, QUINN, osteoarthritis, chronic pain, DDD, depression, COPD, hypertension, and anxiety. Patient presented to the emergency department 3 days ago with complaints of acute urinary retention and balanitis. Findings on his urinalysis were consistent with UTI and he was discharged home on cefdinir. Cultures returned today and were positive for ESBL E. coli sensitive to meropenem/ertapenem, Zosyn, and tobramycin. In addition to UTI patient has been being followed by cardiology for fluid retention and HFpEF. Patient complains today of bilateral lower extremity edema from feet to mid thigh. He does deny shortness of breath, chest pain, abdominal pain, fevers, chills, nausea, vomiting, diarrhea. I was consulted by the ER physician for admission for HFpEF exacerbation and MDR UTI. I agreed to admit the patient, plan of care as follows: #Acute on chronic HFpEF exacerbation ? Patient appears massively volume overloaded with weeping edema and skin breakdown noted on bilateral lower extremities. Patient is morbidly obese, BMI greater than 77. Patient has been seeing cardiology who recently increased his torsemide 40 mg to 4 times daily. Patient states he has been taking the medication 3 times daily. ? Cardiology was consulted from the ED who recommended admission for the patient and initiation of a Bumex drip. Bumex 1 mg/h ordered. ? Strict I's and O's and daily weights ordered. Patient's BNP 54, likely unreliable due to morbid obesity. #Right lateral foot diabetic ulcer, present on admission # Left leg stasis wounds, present on admission ? Patient has multiple wounds on his lower extremities and feet. Left lateral foot, right lateral foot, right proximal lateral foot ulcer. Patient is seeing podiatry for regular dressing changes and management. Wounds were last debrided and cleaned on 04/05/2025. Patient wound dressed with Santyl to the eschar tissue only, then Betadine soaked gauze, Kerlix, Owen to the rest of the foot. Continue Betadine soaked gauze, Kerlix, Owen daily wound changes. Topical erythromycin ointment applied per podiatry recommendation. ?Daily dressing changes ordered. Wound culture positive for Corynebacterium xerosis. Appears bacteria is typically sensitive to meropenem, currently do not have sensitivities. #Urinary tract infection, ESBL E. coli present on admission #Acute urinary retention ? Patient was recently seen in the ED for urinary retention, urine culture came back positive for ESBL E. coli sensitive to ertapenem/meropenem. Patient receiving meropenem 1 g every 8 hour. Patient will need 7 days IV antibiotics. Blood cultures pending. ? Patient currently has Rios catheter in place for urinary retention. ? Continue tamsulosin 0.4 mg daily #Paroxysmal A-fib: Patient has paroxysmal A-fib, EKG shows NSR currently. Continue bisoprolol 5 mg twice daily, diltiazem 120 mg daily, and Xarelto 20 mg daily. #Hypertension: Continue spironolactone 150 mg daily and atorvastatin 40 mg at bedtime. #Insulin-dependent diabetes: A1c in 12/04 was 10.1%. Sliding scale insulin, ACHS fingersticks ordered. Will hold metformin 1000 mg twice daily. #Anxiety: Continue Vraylar 3 mg daily, lorazepam 1 mg daily as needed, venlafaxine 150 mg daily. #Insomnia: Continue trazodone 100 mg at bedtime. #GERD: Continue omeprazole 40 mg twice daily. #Chronic pain: Continue [place] 10-325 mg 3 times daily as needed for pain, gabapentin 600 mg 3 times daily #COPD: Patient O2 greater than 90% on room air. Lungs CTA. DuoNebs every 6 hours ordered as needed for shortness of breath. #Morbid obesity: Patient morbidly obese, BMI greater than 77. This greatly complicates all aspects of patient care. Full code Ambulate as tolerated Diabetic diet VTE?Xarelto 20 mg daily
--- NOTE | 2025-04-12 15:16 | PC.NURSE ---
arrived by w/c from ED
[2025-04-12 15:17] LABS: Thyroid Stimulating Hormone 3.47 uIU/mL (0.465-4.68)
[2025-04-12 15:39] LABS: Hemoglobin A1C 8.9 % (4.0-6.0)
[2025-04-12] MEDS: BUMETANIDE 10 MG in 0.9 % SODIUM CHLORIDE 60 ML IV ×2 (15:40→23:12)
[2025-04-12] MEDS: POTASSIUM CHLORIDE 20MEQ TAB 60 MEQ PO (16:08)
[2025-04-12 16:09] LABS: POC Glucose,Bedside 97 gm/dL (70-110)
[2025-04-12] MEDS: NYSTATIN TOPICAL POWDER 30GM TP ×2 (16:55→21:03)
[2025-04-12] MEDS: BUMETANIDE 1MG/4ML VIAL 2 MG IV (16:55)
[2025-04-12] MEDS: HYDROCODONE 10MG/APAP 325MG TAB 1 TAB PO ×2 (16:55→23:56)
[2025-04-12 18:09] LABS: Hepatitis C Ab Qual. W/ RFX NEGATIVE (Negative)
--- NOTE | 2025-04-12 20:52 | PC.NURSE ---
Spoke with hospitalist about pts home humalin r-u 500 being unavailable. Pts blood sugar was 211. Hospitalist said he is alright without giving that med tonight and using sliding scale.
[2025-04-12] MEDS: PANTOPRAZOLE 40MG TABLET 40 MG PO (21:02)
[2025-04-12] MEDS: BISOPROLOL 5MG TABLET 5 MG PO (21:02)
[2025-04-12] MEDS: GABAPENTIN 600MG TABLET 600 MG PO (21:02)
[2025-04-12] MEDS: ATORVASTATIN 40MG TABLET 40 MG PO (21:02)
[2025-04-12] MEDS: TAMSULOSIN 0.4MG CAPSULE 0.4 MG PO (21:02)
[2025-04-12] MEDS: MUPIROCIN 2% OINTMENT 22GM TUBE TP (21:03)
[2025-04-12] MEDS: humaLOG 100 UNITS/ML 10ML VIAL (SSI) SUBCUT (21:03)
[2025-04-12] MEDS: TRAZODONE 50MG TABLET 100 MG PO (21:03)
[2025-04-13] VITALS (7 sets, daily range): BP systolic 122–163; BP diastolic 70–98; PULSE 74–90; RESP 16–20; TEMP 36.5–36.9; O2SAT 92–95; BMI 75.8
[2025-04-13] MEDS: ACETAMINOPHEN 325MG TAB 650 MG PO ×3 (05:05→23:45)
[2025-04-13] MEDS: MEROPENEM 1 GM in 0.9 % SODIUM CHLORIDE 100 ML IV ×3 (05:05→21:50)
[2025-04-13] MEDS: humaLOG 100 UNITS/ML 10ML VIAL (SSI) SUBCUT ×4 (05:05→21:50)
[2025-04-13 06:04] LABS: Hematocrit 34.8 % (42.0-52.0); Hemoglobin 10.2 g/dL (14.1-18.0); Immature Granulocytes % 0.8 %; Mean Corpuscular HGB Conc 29.3 g/dL (31.8-35.4); Mean Corpuscular Hemoglobin 22.2 pg (27.0-31.2); Mean Corpuscular Volume 75.7 fl (80-94); Nucleated Red Blood Cells % 0 %; Platelet Count 214 K/mm3 (142-424); Red Blood Count 4.60 M/mm3 (4.60-6.20); Red Cell Distribution Width-SD 51.4 fL; White Blood Count 8.3 K/mm3 (4.8-10.8)
[2025-04-13 06:12] LABS: Alanine Aminotransferase 15 U/L (12-78); Albumin Level 3.8 g/dl (3.5-5.0); Albumin/Globulin Ratio 1.1 (1.1-1.8); Alkaline Phosphatase 84 U/L (38-126); Anion Gap 13.2 mEq/L (5-15); Aspartate Amino Transferase 20 U/L (17-59); Bilirubin,Total 1.2 mg/dl (0.2-1.3); Blood Urea Nitrogen 11 mg/dl (9-20); Calcium 8.5 mg/dl (8.4-10.2); Carbon Dioxide 36 mmol/L (22.0-30.0); Chloride 85 mmol/L (98-107); Creatinine Clearance Estimated 125 mL/min (50-200); Creatinine,Serum 0.80 mg/dl (0.66-1.25); Estimated Glomerular Filt Rate 104 ml/min (>60); GFR (African American) 125 ML/MIN (>60); Globulin 3.4 g/dL (1.3-3.2); Glucose 279 mg/dl (74-100); Magnesium 1.4 mg/dl (1.6-2.3); Potassium 3.2 mmoL/L (3.5-5.1); Sodium 131 mmol/L (136-145); Total Protein,Serum 7.2 g/dl (6.3-8.2)
[2025-04-13] MEDS: BISOPROLOL 5MG TABLET 5 MG PO ×2 (08:00→20:44)
[2025-04-13] MEDS: HYDROCODONE 10MG/APAP 325MG TAB 1 TAB PO ×2 (08:00→18:45)
[2025-04-13] MEDS: GABAPENTIN 600MG TABLET 600 MG PO ×3 (08:01→20:46)
[2025-04-13] MEDS: VENLAFAXINE XR 75MG CAPSULE 150 MG PO (08:01)
[2025-04-13] MEDS: dilTIAZem ER 120MG CAPSULE 120 MG PO (08:01)
[2025-04-13] MEDS: SPIRONOLACTONE 25MG TABLET 100 MG PO (08:01)
--- NOTE | 2025-04-13 08:11 | P.PN_ITS ---
<Statement entered by Sebastián Todd MD - 04/13/25 14:11> Rounded on patient after nurse practitioner. Personally examined and interviewed patient. Agree with exam findings and care plan as documented. Subjective *Date: 04/13/25 *Time: 12:37 Interval history: Patient doing well this morning, up to chair. Patient has diuresed 7.6 L since admission. Rios catheter still in place for urinary retention. Patient wounds with dressing in place. Patient continuing on Bumex 1 mg/h drip and meropenem 1 mg every 8 hours. Medical Exam Vital signs and Labs for Last 24 Hours: Vital Signs Temp Pulse Pulse Resp BP BP Pulse Ox 04/13/25 07:48 98.1 F 86 20 144/87 H 92 L 04/13/25 06:46 04/13/25 05:00 04/13/25 04:00 80 04/13/25 04:00 98.1 F 84 16 122/74 92 L 04/13/25 03:00 04/13/25 00:59 04/13/25 00:00 80 04/13/25 00:00 97.7 F 74 18 133/70 93 L 04/12/25 23:00 04/12/25 21:00 04/12/25 20:00 04/12/25 20:00 80 04/12/25 20:00 98.6 F 87 16 134/99 H 97 04/12/25 18:28 04/12/25 17:00 04/12/25 16:05 80 04/12/25 15:20 98.3 F 71 20 114/44 L 96 04/12/25 15:00 04/12/25 14:59 98.2 F 78 18 137/86 04/12/25 14:39 04/12/25 14:00 79 131/84 96 04/12/25 13:30 64 148/73 H 93 L 04/12/25 13:00 79 135/83 95 04/12/25 12:30 74 149/89 H 94 L 04/12/25 12:18 80 18 148/73 H 97 04/12/25 12:13 98.5 F 79 18 138/78 96 O2 Del Method 04/13/25 07:48 Room Air 04/13/25 06:46 Room Air 04/13/25 05:00 Room Air 04/13/25 04:00 04/13/25 04:00 Room Air 04/13/25 03:00 Room Air 04/13/25 00:59 Room Air 04/13/25 00:00 04/13/25 00:00 Room Air 04/12/25 23:00 Room Air 04/12/25 21:00 Room Air 04/12/25 20:00 Room Air 04/12/25 20:00 04/12/25 20:00 Room Air 04/12/25 18:28 Room Air 04/12/25 17:00 Room Air 04/12/25 16:05 04/12/25 15:20 Room Air 04/12/25 15:00 Room Air 04/12/25 14:59 04/12/25 14:39 Room Air 04/12/25 14:00 04/12/25 13:30 04/12/25 13:00 04/12/25 12:30 04/12/25 12:18 04/12/25 12:13 Room Air Intake and Output 04/12/25 04/13/25 04/13/25 23:59 07:59 15:59 Intake Total 635.333 / 935.333 400 / 400 Output Total 4675 / 5825 3925 / 3925 Balance -4039.667 / -4889.667 -3525 / -3525 Intake: Intake, Oral Amount 360 / 660 300 / 300 Intake, Total IV Amount 275.333 / 275.333 100 / 100 Bumetanide 10 mg In 0.9 % 75.333 / 75.333 Sodium Chloride 60 ml @ 10 mls/ hr IV .Q10H PENDING SALE TO [facility] Rx#:[id number] Meropenem 1 gm In 0.9 % Sodium 100 / 100 Chloride 100 ml @ 100 mls/hr IV ONCE ONE Rx#:[id number] Meropenem 1 gm In 0.9 % Sodium 100 / 100 100 / 100 Chloride 100 ml @ 100 mls/hr IV Q8H PENDING SALE TO [facility] Rx#:[id number] Output: Output, Urine Amount 3575 / 4725 3925 / 3925 Output, Urine Amount (Catheter) 1100 / 1100 Rios 1100 / 1100 Other: Number of Unmeasured Voids 0 0 Weight 254.012 kg Patient Weight 04/13/25 23:59 Weight 254.012 kg Laboratory Results - last 24 hr 04/12/25 12:42: WBC 9.0, RBC 4.87, Hgb 11.2 L, Hct 37.3 L, MCV 76.6 L, MCH 23.0 L, MCHC 30.0 L, RDW 19.0 H, Plt Count 277, MPV 8.9, Neut % (Auto) 80.0, Lymph % (Auto) 10.9, [place] % (Auto) 6.8, Eos % (Auto) 1.7, Baso % (Auto) 0.2, Neut # (Auto) 7.2, Lymph # (Auto) 1.0, [place] # (Auto) 0.6, Eos # (Auto) 0.2, Baso # (Auto) 0.0, Sodium 133 L, Potassium 3.1 L, Chloride 84 L, Carbon Dioxide 38 H, Anion Gap 14.1, BUN 12, Creatinine 0.90, Estimated Creat Clear 111, Estimated GFR 90, Est GFR ( Amer) 109, Glucose 124 H, Hemoglobin A1c 8.9 H, Calcium 9.6, Total Bilirubin 1.0, AST 22, ALT 18, Alkaline Phosphatase 79, Troponin I < 0.01, NT-Pro-B Natriuret Pep 54.4, Total Protein 8.2, Albumin 4.2, Globulin 4.0 H, Albumin/Globulin Ratio 1.1, TSH 3.47, HCV Ab ANYA w/Rflx PCR Qn Negative, HIV Ag/Ab Combo Qual Negative 04/12/25 15:58: POC Glucose 97 04/13/25 05:42: WBC 8.3, RBC 4.60, Hgb 10.2 L, Hct 34.8 L, MCV 75.7 L, MCH 22.2 L, MCHC 29.3 L, RDW 18.9 H, Plt Count 214, MPV 8.7, Neut % (Auto) 78.6, Lymph % (Auto) 10.6, [place] % (Auto) 8.2, Eos % (Auto) 1.4, Baso % (Auto) 0.4, Neut # (Auto) 6.5, Lymph # (Auto) 0.9, [place] # (Auto) 0.7, Eos # (Auto) 0.1, Baso # (Auto) 0.0, Sodium 131 L, Potassium 3.2 L, Chloride 85 L, Carbon Dioxide 36 H, Anion Gap 13.2, BUN 11, Creatinine 0.80, Estimated Creat Clear 125, Estimated GFR 104, Est GFR ( Amer) 125, Glucose 279 H D, Calcium 8.5, Magnesium 1.4 L, Total Bilirubin 1.2, AST 20, ALT 15, Alkaline Phosphatase 84, Total Protein 7.2, Albumin 3.8, Globulin 3.4 H, Albumin/Globulin Ratio 1.1 I & O for Labs for Last 24 Hours: Intake & Output 04/10/25 04/11/25 04/12/25 04/13/25 23:59 23:59 23:59 23:59 Intake Total 635.333 / 935.333 400 / 400 Output Total 4675 / 5825 3925 / 3925 Balance -4039.667 / -4889.667 -3525 / -3525 Weight 254.465 kg 254.012 kg Constitutional: Present no acute distress, morbidly obese and cooperative Head: Present atraumatic Eyes: Present as per HPI ENT: Present normal exam Neck: Present normal inspection Respiratory: Present decreased breath sounds, CTA bilaterally, normal respiratory effort and able to speak in complete sentences; Absent wheezes or crackles Cardiac: Present Reg Rate and Rhythm; Absent No Murmur GI: Present soft and normal bowel sounds; Absent distention or tenderness Rectal (male): Present deferred (male): Present deferred Comment:: rios catheter in place Extremities: Present edema (3+ bilateral lower extremity to mid thigh) Comment:: Wounds noted on left lower leg, right lateral foot dressing in place Skin: Present erythema and wounds Neuro: Present alert, awake and oriented x 3 Assessment and Plan *Assessment and plan (1) Acute urinary retention: Status: Acute Category: Medical Code(s): R33.8 - Other retention of urine (2) Acute on chronic heart failure with preserved ejection fraction (HFpEF): Status: Acute Category: Medical Code(s): I50.33 - Acute on chronic diastolic (congestive) heart failure (3) Paroxysmal A-fib: Status: Resolved Category: Medical Code(s): I48.0 - Paroxysmal atrial fibrillation (4) Non-healing wound of lower extremity: Status: Acute Category: Medical Code(s): S81.809A - Unspecified open wound, unspecified lower leg, initial encounter (5) UTI due to extended-spectrum beta lactamase (ESBL) producing Escherichia coli: Status: Acute Category: Medical Code(s): N39.0 - Urinary tract infection, site not specified; B96.29 - Other Escherichia coli [E. coli] as the cause of diseases classified elsewhere; Z16.12 - Extended spectrum beta lactamase (ESBL) resistance (6) Body mass index [BMI] 70 or greater, adult: Status: Acute Category: Medical Code(s): Z68.45 - Body mass index [BMI] 70 or greater, adult (7) Hypertension: Status: Chronic Qualifiers: Hypertension type: essential hypertension Qualified Code(s): I10 - Essential (primary) hypertension Category: Medical Code(s): I10 - Essential (primary) hypertension (8) Blister of left lower leg: Status: Acute Qualifiers: Encounter type: initial encounter Qualified Code(s): S80.822A - Blister (nonthermal), left lower leg, initial encounter Category: Medical Code(s): S80.822A - Blister (nonthermal), left lower leg, initial encounter (9) Diabetic foot ulcer: Status: Acute Qualifiers: Diabetes mellitus type: type 2 Diabetic foot ulcer location: un specified part of foot Laterality: right Non-pressure ulcer stage: with fat layer exposed Qualified Code(s): E11.621 - Type 2 diabetes mellitus with foot ulcer; L97.512 - Non-pressure chronic ulcer of other part of right foot with fat layer exposed Category: Medical Code(s): E11.621 - Type 2 diabetes mellitus with foot ulcer; L97.509 - Non-pressure chronic ulcer of other part of unspecified foot with unspecified severity (10) Chronic a-fib: Status: Acute Category: Medical Code(s): I48.20 - Chronic atrial fibrillation, unspecified (11) Hypomagnesemia: Status: Acute Category: Medical Code(s): E83.42 - Hypomagnesemia Plan Mr. Russell is a 49-year-old male who presented to the emergency department due to a urinary tract infection for which culture and sensitivity showed positive for ESBL. In addition to this finding, patient was extremely edematous in bilateral lower extremities. Patient has been following with cardiology who has been titrating his torsemide, recently increasing it to 40 mg 4 times daily. Patient admits to only taking the medication approximately 3 times daily. Patient has a significant medical history of morbid obesity BMI >70, HFpEF, UTI, insulin-dependent diabetes, urinary retention, cellulitis bilateral lower extremities, BPH, A-fib, QUINN, osteoarthritis, chronic pain, DDD, depression, COPD, hypertension, and anxiety. Patient presented to the emergency department 4 days ago with complaints of acute urinary retention and balanitis. Findings on his urinalysis were consistent with UTI and he was discharged home on cefdinir. Cultures returned today and were positive for ESBL E. coli sensitive to meropenem/ertapenem, Zosyn, and tobramycin. In addition to UTI patient has been being followed by cardiology for fluid retention and HFpEF. Patient complains today of bilateral lower extremity edema from feet to mid thigh. He does deny shortness of breath, chest pain, abdominal pain, fevers, chills, n ausea, vomiting, diarrhea. I was consulted by the ER physician for admission for HFpEF exacerbation and MDR UTI. I agreed to admit the patient, plan of care as follows: #Acute on chronic HFpEF exacerbation ? Patient continues to appear volume overloaded with weeping edema and skin breakdown noted on bilateral lower extremities. Patient is morbidly obese, BMI greater than 77. Patient has been seeing cardiology who recently increased his torsemide 40 mg to 4 times daily. Patient states he has been taking the medication 3 times daily. ? Cardiology was consulted from the ED who recommended admission for the patient and initiation of a Bumex drip. Bumex 1 mg/h ordered. PT has diueresed 7.5 L since admission. Per cardiology continue Bumex drip. ? Strict I's and O's and daily weights ordered. Patient's BNP 54, likely unreliable due to morbid obesity. Kidney function remained stable, creatinine 0.8. ? Continue to monitor CBC, CMP, magnesium-these are ordered for the a.m. #Right lateral foot diabetic ulcer, present on admission # Left leg stasis wounds, present on admission ? Patient has multiple wounds on his lower extremities and feet. Left lateral foot, right lateral foot, right proximal lateral foot ulcer. Patient is seeing podiatry for regular dressing changes and management. Wounds were last debrided and cleaned on 04/05/2025. Patient wound dressed with Santyl to the eschar tissue only, then Betadine soaked gauze, Kerlix, Owen to the rest of the foot. Continue Betadine soaked gauze, Kerlix, Owen daily wound changes. Topical erythromycin ointment applied per podiatry recommendation. ? Daily dressing changes ordered. Wound culture positive for Corynebacterium xerosis. Appears bacteria is typically sensitive to meropenem and erythromycin, currently do not have sensitivities. #Urinary tract infection, ESBL E. coli present on admission #Acute urinary retention ? Patient was recently seen in the ED for urinary retention, urine culture came back positive for ESBL E. coli sensitive to ertapenem/meropenem. Patient receiving meropenem 1 g every 8 hour. Patient will need 7 days IV antibiotics. Blood cultures pending. ? Patient currently has Rios catheter in place for urinary retention. ? Continue tamsulosin 0.4 mg daily #Hypomagnesemia ? Patient magnesium was 1.4, replacing per electrolyte protocol. Repeat magnesium in the AM. #Paroxysmal A-fib: Patient has paroxysmal A-fib, EKG shows NSR currently. Continue bisoprolol 5 mg twice daily, diltiazem 120 mg daily, and Xarelto 20 mg daily. #Hypertension: Continue spironolactone 150 mg daily and atorvastatin 40 mg at bedtime. #Insulin-dependent diabetes: A1c 8.9%. Sliding scale insulin, ACHS fingersticks ordered. Will hold metformin 1000 mg twice daily. Continue Humulin 100 units twice daily. #Anxiety: Continue Vraylar 3 mg daily, lorazepam 1 mg daily as needed, venlafaxine 150 mg daily. #Insomnia: Continue trazodone 100 mg at bedtime. #GERD: Continue omeprazole 40 mg twice daily. #Chronic pain: Continue [place] 10-325 mg 3 times daily as needed for pain, gabapentin 600 mg 3 times daily #COPD: Patient O2 greater than 90% on room air. Lungs CTA. DuoNebs every 6 hours ordered as needed for shortness of breath. #Morbid obesity: Patient morbidly obese, BMI greater than 77. This greatly complicates all aspects of patient care. Full code Ambulate as tolerated Diabetic diet VTE?Xarelto 20 mg daily
--- NOTE | 2025-04-13 08:20 | HMH.PHAINT1 ---
Pharmacy Intervention Comments: HOME MEDICATION LIST VERIFIED USING LIST FROM OUTPATIENT PHARMACY AND PT INTERVIEW
--- NOTE | 2025-04-13 09:38 | SW/DCPLANNER ---
Spoke with patient yesterday in the ED regarding iv antibiotics and home health services once he is medically stable and ready for discharge. Patient stated that he did not have a preference of what agency i send his information to for home health and i sent his information to [facility] for his iv antibiotics and they reached out to me stating that patient has met his deductible and that it will be no cost for his antibiotics. Once patient is stable and ready for discharge i will fax his information to a home health agency and will update which agency. Luis E Schroeder
[2025-04-13] MEDS: PANTOPRAZOLE 40MG TABLET 40 MG PO ×2 (09:47→20:45)
[2025-04-13] MEDS: MUPIROCIN 2% OINTMENT 22GM TUBE TP ×2 (09:47→20:46)
[2025-04-13] MEDS: MAGNESIUM SULFATE IN WATER 2 GM/50 ML PIGGYBACK IV ×2 (09:48→18:40)
--- NOTE | 2025-04-13 10:07 | P.PN_ITS ---
Subjective Subjective Date: 04/13/25 Time: 10:08 Interval history: Patient diary 7.6 L overnight. He is feeling his legs are a bit looser. Labs overall stable although mag low and is being replaced. Tolerating antibiotics, afebrile. Exam Data for Last 24 hours Vital signs and Labs for Last 24 Hours: Temp Pulse Resp BP Pulse Ox O2 Del Method 98.1 F 80 20 144/87 H 92 L Room Air 04/13/25 07:48 04/13/25 08:00 04/13/25 07:48 04/13/25 07:48 04/13/25 07:48 04/13/25 07:48 Laboratory Results - last 24 hr 04/12/25 12:42: WBC 9.0, RBC 4.87, Hgb 11.2 L, Hct 37.3 L, MCV 76.6 L, MCH 23.0 L, MCHC 30.0 L, RDW 19.0 H, Plt Count 277, MPV 8.9, Neut % (Auto) 80.0, Lymph % (Auto) 10.9, [place] % (Auto) 6.8, Eos % (Auto) 1.7, Baso % (Auto) 0.2, Neut # (Auto) 7.2, Lymph # (Auto) 1.0, [place] # (Auto) 0.6, Eos # (Auto) 0.2, Baso # (Auto) 0.0, Sodium 133 L, Potassium 3.1 L, Chloride 84 L, Carbon Dioxide 38 H, Anion Gap 14.1, BUN 12, Creatinine 0.90, Estimated Creat Clear 111, Estimated GFR 90, Est GFR ( Amer) 109, Glucose 124 H, Hemoglobin A1c 8.9 H, Calcium 9.6, Total Bilirubin 1.0, AST 22, ALT 18, Alkaline Phosphatase 79, Troponin I < 0.01, NT-Pro-B Natriuret Pep 54.4, Total Protein 8.2, Albumin 4.2, Globulin 4.0 H, Albumin/Globulin Ratio 1.1, TSH 3.47, HCV Ab ANYA w/Rflx PCR Qn Negative, HIV Ag/Ab Combo Qual Negative 04/12/25 15:58: POC Glucose 97 04/13/25 05:42: WBC 8.3, RBC 4.60, Hgb 10.2 L, Hct 34.8 L, MCV 75.7 L, MCH 22.2 L, MCHC 29.3 L, RDW 18.9 H, Plt Count 214, MPV 8.7, Neut % (Auto) 78.6, Lymph % (Auto) 10.6, [place] % (Auto) 8.2, Eos % (Auto) 1.4, Baso % (Auto) 0.4, Neut # (Auto) 6.5, Lymph # (Auto) 0.9, [place] # (Auto) 0.7, Eos # (Auto) 0.1, Baso # (Auto) 0.0, Sodium 131 L, Potassium 3.2 L, Chloride 85 L, Carbon Dioxide 36 H, Anion Gap 13.2, BUN 11, Creatinine 0.80, Estimated Creat Clear 125, Estimated GFR 104, Est GFR ( Amer) 125, Glucose 279 H D, Calcium 8.5, Magnesium 1.4 L, Total Bilirubin 1.2, AST 20, ALT 15, Alkaline Phosphatase 84, Total Protein 7.2, Albumin 3.8, Globulin 3.4 H, Albumin/Globulin Ratio 1.1 I & O for Last 24 hours: Intake & Output 04/10/25 04/11/25 04/12/25 04/13/25 23:59 23:59 23:59 23:59 Intake Total 635.333 / 935.333 780 / 780 Output Total 4675 / 5825 3925 / 3925 Balance -4039.667 / -4889.667 -3145 / -3145 Weight 561 lb 560 lb Constitutional Constitutional: no acute distress and cooperative *Routine HEENT Exam Eye: Present PERRL *Routine Respiratory Exam Respiratory: Present CTA bilaterally; Absent accessory muscle use, wheezes or crackles *Routine Cardiovascular Exam Cardiovascular: Present RRR, Normal S1 and Normal S2; Absent murmur, gallop or rubs *Routine Abdominal Exam Abdominal: Present soft; Absent tenderness *Routine Extremities Exam Extremities: Present pulses intact; Absent cyanosis or edema Comments: Pronounced edema, slightly improved today. He has received wound care to lower extremities-right foot is wrapped. *Routine Skin Exam Skin: Present intact; Absent erythema or wounds *Routine Neurological Exam Neurological: Present alert and oriented X3 Routine Psychiatric Exam Psychiatric: Present cooperative Progress Note: A&P Assessment and plan (1) UTI due to extended-spectrum beta lactamase (ESBL) producing Escherichia coli: Status: Acute (2) Acute on chronic heart failure with preserved ejection fraction (HFpEF): Status: Acute (3) Body mass index [BMI] 70 or greater, adult: Status: Acute (4) Acute urinary retention: Status: Acute (5) Paroxysmal A-fib: Status: Resolved (6) Non-healing wound of lower extremity: Status: Acute (7) Hypertension: Status: Chronic (8) Blister of left lower leg: Status: Acute (9) Diabetic foot ulcer: Status: Acute (10) Chronic a-fib: Status: Acute Assessment and plan: Acute on Chronic HFpEF - massive vol overload with weaping edema and skin breakdown - known chronic recurring secondary to critical morbid obesity, BMI 77 - resume home meds - continue Bumex 1mg/hr, daily labs and I/O PAF - SR here - Continue Bisoprolol, Diltiazem, Xarelto ESBL UTI and Urinary Retention - on IV Ab - Barber in place Morbid Obesity, BMI 77 - has failed gastric sleeve and GLP-1 - life limiting condition
[2025-04-13] MEDS: BUMETANIDE 10 MG in 0.9 % SODIUM CHLORIDE 60 ML IV ×2 (11:06→21:50)
[2025-04-13 11:33] LABS: POC Glucose,Bedside 304 gm/dL (70-110)
[2025-04-13] MEDS: POTASSIUM CHLORIDE 20MEQ TAB 40 MEQ PO ×4 (11:45→22:37)
--- NOTE | 2025-04-13 11:50 | PC.WOUNDNOTE ---
LARGE DFU TO OUTER SIDE OF RIGHT FOOT. RED, BEEFY TISSUE PRESENT WITH NECROTIC TISSUE PRESENT IN CENTER. LARGE AMOUNT OF SANGUENOUS DRAINAGE PRESENT. LEFT MCRAE AREA. REDNESS NOTED ALONG WITH DRY SCALY SKIN, SOME SCABBING NOTED.
--- OUTSIDE RECORDS SUMMARY | 2025-04-13 14:45 | XMS_ITS | Encounter Summary ---
Author Organization Healthcare Address [address] [id number] Care Team Providers Care Pattern Chain Builder Name Role Phone Malcolm Hayward ADALGISA Primary Care Provider [phone] Reason for Visit * Reason Onset Date Comments Med Refill 02/27/2025 Encounter Details Date Type Department Care Team (Late st Contact Info) Description 02/27/2025 Refill [place] [facility] Endocrinology [address] [place] [address] Iveth Hurd Social History Tobacco [...] documented as of this encounter Care Teams Pattern Chain Builder Relationship Specialty Start Date End Date Malcolm Hayward APRN [address] [place] [address] [place] [address] PCP - General 09/21/23 documented as of this encounter
--- OUTSIDE RECORDS SUMMARY | 2025-04-13 14:45 | XMS_ITS | Encounter Summary ---
Author Organization Healthcare Address [address] [id number] Care Team Providers Care Gymnastics Coach Name Role Phone Malcolm Hayward ASSEMBLER FOR PULLER OVER MACHINE Primary Care Provider [phone] Reason for Visit * Reason Comments Med Refill Encounter Details Date Type Department Care Team (Late st Contact Info) Description 07/07/2024 Refill [place] [facility] [address] [place] [address] Mayra Torres PA [address] [address] Type 2 diabetes mellitus (CMS/HCC) [...] documented as of this encounter Care Teams Gymnastics Coach Relationship Specialty Start Date End Date Malcolm Hayward APRN [address] [place] [address] PCP - General 09/21/23 documented as of this encounter
--- OUTSIDE RECORDS SUMMARY | 2025-04-13 14:45 | XMS_ITS | Clinical Summary ---
Author Organization [employer] ([place], [place], [place], [place]) Address [address] [place] [address] Care Team Providers Care Hot Plate Plywood Press Feeder Name Role Phone Malcolm Hayward APRN Primary Care Provider [phone] Allergies No known active allergies Medications atorvastatin [...] 04/26/2020, 12/24/2016 Insurance MEDICARE PART A B /[facility] Care Teams Hot Plate Plywood Press Feeder Relationship Specialty Start Date End Date Malcolm Hayward APRN [address] [place] [address] PCP - General Nurse Practitioner 12/20/24
--- OUTSIDE RECORDS SUMMARY | 2025-04-13 14:45 | XMS_ITS | Encounter Summary ---
Author Organization Healthcare Address [address] [id number] Care Team Providers Care Wet Room Worker Name Role Phone Malcolm Hayward BATTERY CONTAINER INSPECTOR Primary Care Provider [phone] Reason for Visit * Reason Comments Med Refill Encounter Details Date Type Department Care Team (Late st Contact Info) Description 12/31/2023 Refill [place] [facility] End[facility] [address] [place] [address] Earline Loaiza, BATTERY CONTAINER INSPECTOR [address] [facility] [address] [place] [address] Type 2 diabetes mellitus (CMS/HCC) [...] documented as of this encounter Care Teams Wet Room Worker Relationship Specialty Start Date End Date Malcolm Hayward APRN [address] [place] [address] PCP - General 09/21/23 documented as of this encounter
--- OUTSIDE RECORDS SUMMARY | 2025-04-13 14:45 | XMS_ITS | Referral Summary ---
Author Organization [employer] ([place], [place], [place], [place]) Address [address] [place] [address] Care Team Providers Care Ror Engineer Name Role Phone Malcolm Hayward APRN Primary Care Provider [phone] Allergies No known active allergies Medications atorvastatin [...] A B BLUE CROSS/BLUE SHIELD Care Teams Ror Engineer Relationship Specialty Start Date End Date Malcolm Hayward, ADALGISA [address] [place] [address] PCP - General Nurse Practitioner 12/20/24
--- OUTSIDE RECORDS SUMMARY | 2025-04-13 14:45 | XMS_ITS | Clinical Summary ---
[facility] Address [address] [place] [address] Care Team Providers Care Automotive Sales Executive Name Role Phone Provider, No Known Primary [...] patient's age to complete this topic Insurance [facility] PPO Care Teams Automotive Sales Executive Relationship Specialty Start Date End Date Provider, No Known [place] [address] PCP - General 02/11/21
--- OUTSIDE RECORDS SUMMARY | 2025-04-13 14:45 | XMS_ITS | Encounter Summary ---
Author Organization [facility] Address [address] [id number] Care Team Providers Care Decorating Equipment Setter Name Role Phone Malcolm Hayward FOREST FIRE CONTROL OFFICER Primary Care Provider [phone] Reason for Visit * Reason Comments Med Refill Encounter Details Date Type Department Care Team (Late st Contact Info) Description 12/02/2024 Refill [place] [facility] Endocrinology [address] [place] [address] Divine Archer, FOREST FIRE CONTROL OFFICER [address] [facility] [address] [place] [address] Social History Tobacco Use Types [...] documented as of this encounter Care Teams Decorating Equipment Setter Relationship Specialty Start Date End Date Malcolm Hayward APRN [address] [place] [id number] PCP - General 09/21/23 documented as of this encounter
--- OUTSIDE RECORDS SUMMARY | 2025-04-13 14:45 | XMS_ITS | Encounter Summary ---
Author Organization Healthcare Address [address] [id number] Care Team Providers Care Explosive Operator Fuse Name Role Phone Malcolm Hayward HOME CARE MUSIC THERAPIST Primary Care Provider [phone] Encounter Details Date Type Department Care Team (Late st Contact Info) Description 02/27[facility]20[facility] [address] [place] [address] Divine Archer, HOME CARE MUSIC THERAPIST [address] [facility] [address] [place] [address] Social History Tobacco Use Types [...] any time in the past 12 m [facility], were you homeless or living in [...] documented as of this encounter Care Teams Explosive Operator Fuse Relationship Specialty Start Date End Date Malcolm Hayward APRN [address] [place] [address] PCP - General 09/21/23 documented as of this encounter
--- OUTSIDE RECORDS SUMMARY | 2025-04-13 14:45 | XMS_ITS | Clinical Summary ---
Author Organization [facility] Address [address] [place] [address] Care Team Providers Care Shop Mechanic Helper Name Role Phone Malcolm Hayward [...] 6 hours as needed for pain. Under [place] law, monthly prescriptions (30 days) can be refilled at 25 days and three-month prescriptions (90 days) at 80 days. Please contact the insurance company with questions if refills are denied. 100 tablet 12/18/19 25 Active polyethylene glycol (Miralax) 17 g packet Take 17 g by mouth daily. 30 packet 12/18/19 25 Active HYDROcodone-acetam inophen (Byers) 10-325 MG tablet Take 1 tablet by [...] 02/23/20 25 Active Insulin Pen Needle (Pen Pearsall) 31G X 5 MM [facility] [place] USE TO INJECT INSULIN 3 TIMES PER [...] Department Care Team Description 02/27/2025 Refill [facility]ology [address] [place] [address] Iveth Hurd 02/27/2025 Telephone [facility]ology [address] [place] [address] Divine Archer, ADALGISA 02/21/2025 Refill [facility] [address] [place] [address] Pratibha Forde PA from Last 3 Months Immunizations Immunization Administration [...] 2022 Sigmoidoscopy 2022 [facility]-Colorectal Cancer Screening 2022 [id number] Vaccine ( season) 2025 02/22/2021, 01/25/2021 [facility]-Diabetes: [...] 10.9(H) <5.7 % 12/13/2024 11:55 AM EDT [facility] Blood Venous blood specimen / Unknown Venipuncture / Unknown 12/12/2024 11:46 PM EDT 12/13/2024 12:06 AM EDT Narrative [facility] - 12/13/2024 11:55 AM EDT HA1C Interpretive Data: Diagnosis of Diabetes: Diabetic > or = 6.5% Pre-diabetic 5.7 to 6.4% Non-diabetic < or = 5.6% Glycemic Targets for Type I and Type II Diabetics: Non- Adults <7.0% Adults <6.0% Children and Adolescents <7.5% Source: [place] [employer]. Standards of medical care in diabetes,2017. Diabetes Care.2017:40 (suppl 1):S1-S135. Nicole Casas MD LAB BLOOD ORDERABLES Melba don Result [facility] [address] [place] [address] from Last 3 Months or Most Recently Relevant to Health Maintenance Insurance [facility] [place] [address] Advance Directives * Full Code (Latest Code Status on File) Date Activated Date Inactivated Comments 12/12/2024 11:07 PM 12/17/2024 3:22 PM Question Answer Comments I have reviewed the capacity from the link above and, if needed, have updated to appropriate status: Yes Care Teams Shop Mechanic Helper Relationship Specialty Start Date End Date Malcolm Hayward APRN [address] [facility] [place] [address] PCP - General 09/21/23
--- OUTSIDE RECORDS SUMMARY | 2025-04-13 14:45 | XMS_ITS | Encounter Summary ---
Author Organization Healthcare Address [address] [id number] Care Team Providers Care Early Childhood Education Worker Name Role Phone Malcolm Hayward ADALGISA Primary Care Provider [phone] Reason for Visit * Reason Onset Date Comments Med Refill 02/21/2025 Encounter Details Date Type Department Care Team (Late st Contact Info) Description 02/21/2025 Refill [facility] End[facility]ology [address] [place] [address] Pratibha Forde, PA [address] [place] [address] Social History Tobacco Use Types [...] any time in the past 12 m [facility], were you homeless or living in a fdc (including now)? No 12/16/2024 Utilities Answer Date [...] documented as of this encounter Care Teams Early Childhood Education Worker Relationship Specialty Start Date End Date Malcolm Hayward APRN [address] [place] [address] PCP - General 09/21/23 documented as of this encounter
[2025-04-13 16:05] LABS: POC Glucose,Bedside 381 gm/dL (70-110)
[2025-04-13] MEDS: ERYTHROMYCIN BASE 3.5 GM OINT...G. OP ×2 (16:48→20:45)
[2025-04-13 17:40] LABS: Anion Gap 14.4 mEq/L (5-15); Blood Urea Nitrogen 12 mg/dl (9-20); Calcium 8.6 mg/dl (8.4-10.2); Carbon Dioxide 34 mmol/L (22.0-30.0); Chloride 84 mmol/L (98-107); Creatinine Clearance Estimated 111 mL/min (50-200); Creatinine,Serum 0.90 mg/dl (0.66-1.25); Estimated Glomerular Filt Rate 90 ml/min (>60); GFR (African American) 109 ML/MIN (>60); Glucose 370 mg/dl (74-100); Potassium 3.4 mmoL/L (3.5-5.1); Sodium 129 mmol/L (136-145)
[2025-04-13] MEDS: HUMULIN R U 200 EACH SUBCUT (17:45)
[2025-04-13] MEDS: NYSTATIN TOPICAL POWDER 30GM TP (17:49)
[2025-04-13] MEDS: ATORVASTATIN 40MG TABLET 40 MG PO (20:43)
[2025-04-13] MEDS: TAMSULOSIN 0.4MG CAPSULE 0.4 MG PO (20:45)
[2025-04-13] MEDS: TRAZODONE 50MG TABLET 100 MG PO (20:46)
--- NOTE | 2025-04-13 21:30 | PC.NURSE ---
DRESSING CHANGE Patient's dressing to his right foot was changed at this time using sterile technique. Patient was positioned comfortably; patient denied any pain beforehand. Hand-washing was performed prior to the procedure. Old bandaging was discarded appropriately, right foot wound was then assessed. No bleeding or drainage was noted prior to this dressing change. Slough tissue and a light pink wound bed was noted. Border defined. Minimal odor detected. Wound (location: plantar view, right lateral side) was then cleansed first using sterile water. Patient tolerated the cleansing very well, for he stated that he does not have any feeling to his foot (unable to feel pain, the bandaging around his foot, etc.). Using multiple sterile gauze sponges as applicators, Mupirocin ointment was applied to his bilateral lower extremities, and Erythromycin base (provider ordered it as topical to apply to the right foot per MAR) was applied to the right foot wound ulceration. Sterile betadine-soaked 4x4 gauze sponges, one ABD pad (for reinforcement of the gauze pads), one full cotton gauze (Kerlix) roll, and two wraps of MASON banding were all used to dress the wound (per provider report recommendations). Patient is currently resting up to chair with both legs elevated at this time. Patient tolerated the procedure very well overall without any reports of pain or discomfort.
[2025-04-13 21:31] LABS: POC Glucose,Bedside 423 gm/dL (70-110)
[2025-04-14] VITALS: BP 134/87; PULSE 79; RESP 14; TEMP 36.9; O2SAT 99
[2025-04-14] MEDS: HYDROCODONE 10MG/APAP 325MG TAB 1 TAB PO ×3 (03:33→19:53)
--- NOTE | 2025-04-14 03:42 | PC.NURSE ---
PT AOx4, pleasant. Currently up to bedside chair. Reported some generalized pain in his lower body. Administered prn pain meds per MAR. Denies any other needs this time. Respirations even and unlabored. Call light in reach.
[2025-04-14 04:00] VITALS: BP 140/89; PULSE 80; RESP 18; TEMP 36.6; O2SAT 94; BMI 75.8
[2025-04-14 05:21] LABS: POC Glucose,Bedside 307 gm/dL (70-110)
[2025-04-14] MEDS: MEROPENEM 1 GM in 0.9 % SODIUM CHLORIDE 100 ML IV ×3 (05:27→21:06)
[2025-04-14] MEDS: humaLOG 100 UNITS/ML 10ML VIAL (SSI) SUBCUT ×4 (05:28→20:39)
[2025-04-14 06:01] LABS: Hematocrit 34.0 % (42.0-52.0); Hemoglobin 10.2 g/dL (14.1-18.0); Immature Granulocytes % 0.6 %; Mean Corpuscular HGB Conc 30.0 g/dL (31.8-35.4); Mean Corpuscular Hemoglobin 22.8 pg (27.0-31.2); Mean Corpuscular Volume 75.9 fl (80-94); Nucleated Red Blood Cells % 0 %; Platelet Count 217 K/mm3 (142-424); Red Blood Count 4.48 M/mm3 (4.60-6.20); Red Cell Distribution Width-SD 51.2 fL; White Blood Count 6.5 K/mm3 (4.8-10.8)
[2025-04-14 06:14] LABS: Chloride 86 mmol/L (98-107); Potassium 3.3 mmoL/L (3.5-5.1); Sodium 132 mmol/L (136-145)
[2025-04-14 06:17] LABS: Anion Gap 12.3 mEq/L (5-15); Blood Urea Nitrogen 12 mg/dl (9-20); Calcium 8.5 mg/dl (8.4-10.2); Carbon Dioxide 37 mmol/L (22.0-30.0); Creatinine Clearance Estimated 125 mL/min (50-200); Creatinine,Serum 0.80 mg/dl (0.66-1.25); Estimated Glomerular Filt Rate 104 ml/min (>60); GFR (African American) 125 ML/MIN (>60); Glucose 293 mg/dl (74-100)
[2025-04-14] MEDS: HUMULIN R U 200 EACH SUBCUT ×2 (06:33→16:43)
[2025-04-14 07:45] VITALS: BP 142/76; PULSE 73; RESP 16; TEMP 36.6; O2SAT 96
--- NOTE | 2025-04-14 08:20 | P.PN_ITS ---
<Statement entered by Sebastián Todd MD - 04/14/25 10:52> Rounded on patient prior to nurse practitioner. Personally examined and interviewed patient. Agree with exam findings and care plan as documented. Subjective *Date: 04/14/25 *Time: 09:46 Interval history: Patient doing well this morning, sitting up in chair. Patient has diuresed greater than 13 L during admission. Edema in bilateral lower extremities improving. Patient continuing meropenem every 8 hour for ESBL UTI. Rios catheter in place, chronic. Medical Exam Vital signs and Labs for Last 24 Hours: Vital Signs Temp Pulse Pulse Pulse Resp BP Pulse Ox 04/14/25 07:45 97.8 F 73 16 142/76 H 96 04/14/25 06:53 04/14/25 05:00 04/14/25 04:00 97.8 F 80 18 140/89 94 L 04/14/25 03:00 04/14/25 01:00 04/14/25 00:00 98.4 F 79 14 134/87 99 04/13/25 23:00 04/13/25 21:00 04/13/25 20:00 04/13/25 20:00 98.4 F 79 16 163/91 H 95 04/13/25 18:49 04/13/25 17:00 04/13/25 16:00 90 04/13/25 16:00 98.3 F 80 18 149/85 H 93 L 04/13/25 15:00 04/13/25 13:00 04/13/25 12:00 80 04/13/25 12:00 98.1 F 81 18 151/98 H 94 L 04/13/25 11:00 04/13/25 09:00 O2 Del Method 04/14/25 07:45 Room Air 04/14/25 06:53 Room Air 04/14/25 05:00 Room Air 04/14/25 04:00 Room Air 04/14/25 03:00 Room Air 04/14/25 01:00 Room Air 04/14/25 00:00 Room Air 04/13/25 23:00 Room Air 04/13/25 21:00 Room Air 04/13/25 20:00 Room Air 04/13/25 20:00 Room Air 04/13/25 18:49 Room Air 04/13/25 17:00 Room Air 04/13/25 16:00 04/13/25 16:00 Room Air 04/13/25 15:00 Room Air 04/13/25 13:00 Room Air 04/13/25 12:00 04/13/25 12:00 Room Air 04/13/25 11:00 Room Air 04/13/25 09:00 Room Air Intake and Output 04/13/25 04/14/25 04/14/25 23:59 07:59 15:59 Intake Total 1570 / 5928 808 / 808 Output Total 3730 / 97017 3750 / 3750 Balance -2160 / -6077 -2942 / -2942 Intake: Intake, Oral Amount 1320 / 5328 708 / 708 Intake, Total IV Amount 250 / 600 100 / 100 Bumetanide 10 mg In 0.9 % 100 / 200 Sodium Chloride 60 ml @ 10 mls/ hr IV .Q10H [facility] Rx#:[id number] Magnesium Sulfate in Water 2 gm 50 / 50 In 50 ml @ 50 mls/hr IV Q1H [facility] Rx#:[id number] Meropenem 1 gm In 0.9 % Sodium 100 / 300 100 / 100 Chloride 100 ml @ 100 mls/hr IV Q8H [facility] Rx#:[id number] Output: Output, Urine Amount 3730 / 58756 3750 / 3750 Other: Number of Unmeasured Voids 0 0 Weight 254.012 kg Patient Weight 04/14/25 23:59 Weight 254.012 kg Laboratory Results - last 24 hr 04/13/25 11:26: POC Glucose 304 H* 04/13/25 15:58: POC Glucose 381 H* 04/13/25 17:18: Sodium 129 L, Potassium 3.4 L, Chloride 84 L, Carbon Dioxide 34 H, Anion Gap 14.4, BUN 12, Creatinine 0.90, Estimated Creat Clear 111, Estimated GFR 90, Est GFR ( Amer) 109, Glucose 370 H D, Calcium 8.6 04/13/25 20:50: POC Glucose 423 H* 04/14/25 05:14: POC Glucose 307 H* 04/14/25 05:47: WBC 6.5, RBC 4.48 L, Hgb 10.2 L, Hct 34.0 L, MCV 75.9 L, MCH 22.8 L, MCHC 30.0 L, RDW 18.6 H, Plt Count 217, MPV 8.7, Neut % (Auto) 75.9, Lymph % (Auto) 12.6, [place] % (Auto) 8.3, Eos % (Auto) 2.3, Baso % (Auto) 0.3, Neut # (Auto) 5.0, Lymph # (Auto) 0.8, [place] # (Auto) 0.5, Eos # (Auto) 0.2, Baso # (Auto) 0.0, Sodium 132 L, Potassium 3.3 L, Chloride 86 L, Carbon Dioxide 37 H, Anion Gap 12.3, BUN 12, Creatinine 0.80, Estimated Creat Clear 125, Estimated GFR 104, Est GFR ( Amer) 125, Glucose 293 H D, Calcium 8.5 I & O for Labs for Last 24 Hours: Intake & Output 04/11/25 04/12/25 04/13/25 04/14/25 23:59 23:59 23:59 23:59 Intake Total 635.333 / 332.280 0809 / 5928 808 / 808 Output Total 4675 / 5825 57502 / 50631 3750 / 3750 Balance -4039.667 / -4889.667 -6035 / -6077 -2942 / -2942 Weight 254.465 kg 254.012 kg 254.012 kg Microbiology Reports for the Last 24 Hours: Microbiology 04/12/25 12:52 Blood Blood Culture - Preliminary NO GROWTH AFTER 24 HOURS 04/12/25 12:42 Blood Blood Culture - Preliminary NO GROWTH AFTER 24 HOURS Constitutional: Present no acute distress, morbidly obese and cooperative Head: Present atraumatic Eyes: Present as per HPI ENT: Present normal exam Neck: Present normal inspection Respiratory: Present decreased breath sounds, CTA bilaterally, normal respiratory effort and able to speak in complete sentences; Absent wheezes or crackles Cardiac: Present Reg Rate and Rhythm; Absent No Murmur GI: Present soft and normal bowel sounds; Absent distention or tenderness Rectal (male): Present deferred (male): Present deferred Comment:: rios catheter in place Extremities: Present edema (3+ bilateral lower extremity to mid thigh) Comment:: Wounds noted on left lower leg, right lateral foot dressing in place Skin: Present erythema and wounds Neuro: Present alert, awake and oriented x 3 Assessment and Plan *Assessment and plan (1) Acute urinary retention: Status: Acute Category: Medical Code(s): R33.8 - Other retention of urine (2) Acute on chronic heart failure with preserved ejection fraction (HFpEF): Status: Acute Category: Medical Code(s): I50.33 - Acute on chronic diastolic (congestive) heart failure (3) Paroxysmal A-fib: Status: Resolved Category: Medical Code(s): I48.0 - Paroxysmal atrial fibrillation (4) Non-healing wound of lower extremity: Status: Acute Category: Medical Code(s): S81.809A - Unspecified open wound, unspecified lower leg, initial encounter (5) UTI due to extended-spectrum beta lactamase (ESBL) producing Escherichia coli: Status: Acute Category: Medical Code(s): N39.0 - Urinary tract infection, site not specified; B96.29 - Other Escherichia coli [E. coli] as the cause of diseases classified elsewhere; Z16.12 - Extended spectrum beta lactamase (ESBL) resistance (6) Body mass index [BMI] 70 or greater, adult: Status: Acute Category: Medical Code(s): Z68.45 - Body mass index [BMI] 70 or greater, adult (7) Hypertension: Status: Chronic Qualifiers: Hypertension type: essential hypertension Qualified Code(s): I10 - Essential (primary) hypertension Category: Medical Code(s): I10 - Essential (primary) hypertension (8) Blister of left lower leg: Status: Acute Qualifiers: Encounter type: initial encounter Qualified Code(s): S80.822A - Blister (nonthermal), left lower leg, initial encounter Category: Medical Code(s): S80.822A - Blister (nonthermal), left lower leg, initial encounter (9) Diabetic foot ulcer: Status: Acute Qualifiers: Diabetes mellitus type: type 2 Diabetic foot ulcer location: unspecified part of foot Laterality: right Non-pressure ulcer stage: with fat layer exposed Qualified Code(s): E11.621 - Type 2 diabetes mellitus with foot ulcer; L97.512 - Non-pressure chronic ulcer of other part of right foot with fat layer exposed Category: Medical Code(s): E11.621 - Type 2 diabetes mellitus with foot ulcer; L97.509 - Non-pressure chronic ulcer of other part of unspecified foot with unspecified severity (10) Chronic a-fib: Status: Acute Category: Medical Code(s): I48.20 - Chronic atrial fibrillation, unspecified (11) Hypomagnesemia: Status: Acute Category: Medical Code(s): E83.42 - Hypomagnesemia Plan Mr. Russell is a 49-year-old male who presented to the emergency department due to a urinary tract infection for which culture and sensitivity showed positive for ESBL. In addition to this finding, patient was extremely edematous in bilateral lower extremities. Patient has been following with cardiology who has been titrating his torsemide, recently increasing it to 40 mg 4 times daily. Patient admits to only taking the medication approximately 3 times daily. Patient has a significant medical history of morbid obesity BMI >70, HFpEF, UTI, insulin-dependent diabetes, urinary retention, cellulitis bilateral lower extremities, BPH, A-fib, QUINN, osteoarthritis, chronic pain, DDD, depression, COPD, hypertension, and anxiety. Patient presented to the emergency department 5 days ago with complaints of acute urinary retention and balanitis. Findings on his urinalysis were consistent with UTI and he was discharged home on cefdinir. Cultures returned today and were positive for ESBL E. coli sensitive to meropenem/ertapenem, Zosyn, and tobramycin. In addition to UTI patient has been being followed by cardiology for fluid retention and HFpEF. Patient complains today of bilateral lower extremity edema from feet to mid thigh. He does deny shortness of breath, chest pain, abdominal pain, fevers, chills, nausea, vomiting, diarrhea. I was consulted by the ER physician for admission for HFpEF exacerbation and MDR UTI. I agreed to admit the patient, plan of care as follows: #Acute on chronic HFpEF exacerbation ? Patient continues to appear volume overloaded with weeping edema and skin breakdown noted on bilateral lower extremities. Patient is morbidly obese, BMI greater than 77. Patient has been seeing cardiology who recently increased his torsemide 40 mg to 4 times daily. Patient states he has been taking the medication 3 times daily. ? Cardiology was consulted from the ED who recommended admission for the patient and initiation of a Bumex drip. Bumex 1 mg/h ordered. PT has diueresed >13 L since admission. Will continue Bumex drip another 24 hours. ? Strict I's and O's and daily weights ordered. Patient's BNP 54, likely unreliable due to morbid obesity. Kidney function remained stable, creatinine 0.8. ? Continue to monitor CBC, CMP, magnesium-these are ordered for the a.m. #Right lateral foot diabetic ulcer, present on admission # Left leg stasis wounds, present on admission ? Patient has multiple wounds on his lower extremities and feet. Left lateral foot, right lateral foot, right proximal lateral foot ulcer. Patient is seeing podiatry for regular dressing changes and management. Wounds were last debrided and cleaned on 04/05/2025. Patient wound dressed with Santyl to the eschar tissue only, then Betadine soaked gauze, Kerlix, Owen to the rest of the foot. Continue Betadine soaked gauze, Kerlix, Owen daily wound changes. Topical erythromycin ointment applied per podiatry recommendation. ? Daily dressing changes ordered. Wound culture positive for Corynebacterium xerosis. Appears bacteria is typically sensitive to meropenem and erythromycin, currently do not have sensitivities. #Urinary tract infection, ESBL E. coli present on admission #Acute urinary retention ? Patient was recently seen in the ED for urinary retention, urine culture came back positive for ESBL E. coli sensitive to ertapenem/meropenem. Patient receiving meropenem 1 g every 8 hour. Patient will need 7 days IV antibiotics. Blood cultures show no growth after 24 hours. ? Patient currently has Rios catheter in place for urinary retention. ? Continue tamsulosin 0.4 mg daily #Hypomagnesemia ? Patient magnesium was 1.7, replacing per electrolyte protocol. Repeat magnesium in the AM. #Paroxysmal A-fib: Patient has paroxysmal A-fib, EKG shows NSR on admission. Continue bisoprolol 5 mg twice daily, diltiazem 120 mg daily, and Xarelto 20 mg daily. #Hypertension: Continue spironolactone 150 mg daily and atorvastatin 40 mg at bedtime. #Insulin-dependent diabetes: A1c 8.9%. Sliding scale insulin, ACHS fingersticks ordered. Will hold metformin 1000 mg twice daily. Continue Humulin 100 units twice daily. #Anxiety: Continue Vraylar 3 mg daily, lorazepam 1 mg daily as needed, venlafaxine 150 mg daily. #Insomnia: Continue trazodone 100 mg at bedtime. #GERD: Continue omeprazole 40 mg twice daily. #Chronic pain: Continue [place] 10-325 mg 3 times daily as needed for pain, gabapentin 600 mg 3 times daily #COPD: Patient O2 greater than 90% on room air. Lungs CTA. DuoNebs every 6 hours ordered as needed for shortness of breath. #Morbid obesity: Patient morbidly obese, BMI greater than 77. This greatly complicates all aspects of patient care. Full code Ambulate as tolerated Diabetic diet VTE?Xarelto 20 mg daily
[2025-04-14] MEDS: BUMETANIDE 10 MG in 0.9 % SODIUM CHLORIDE 60 ML IV ×2 (08:37→16:41)
[2025-04-14] MEDS: INSULIN GLARGINE 100 UNITS/ML 3ML FLEXPEN 40 UNIT SUBCUT (08:40)
[2025-04-14] MEDS: GABAPENTIN 600MG TABLET 600 MG PO ×3 (08:41→20:37)
[2025-04-14] MEDS: POTASSIUM CHLORIDE 20MEQ TAB 40 MEQ PO ×2 (08:42→11:30)
[2025-04-14] MEDS: BISOPROLOL 5MG TABLET 5 MG PO ×2 (08:43→20:37)
[2025-04-14] MEDS: PANTOPRAZOLE 40MG TABLET 40 MG PO ×2 (08:43→20:37)
[2025-04-14] MEDS: dilTIAZem ER 120MG CAPSULE 120 MG PO (08:43)
[2025-04-14] MEDS: SPIRONOLACTONE 25MG TABLET 100 MG PO (08:43)
[2025-04-14] MEDS: VENLAFAXINE XR 75MG CAPSULE 150 MG PO (08:43)
[2025-04-14] MEDS: MUPIROCIN 2% OINTMENT 22GM TUBE TP ×2 (08:44→20:42)
[2025-04-14] MEDS: ERYTHROMYCIN BASE 3.5 GM OINT...G. OP ×2 (08:44→21:36)
[2025-04-14] MEDS: NYSTATIN TOPICAL POWDER 30GM TP ×2 (08:46→20:42)
[2025-04-14] MEDS: ACETAMINOPHEN 325MG TAB 650 MG PO (08:50)
[2025-04-14 09:58] LABS: Magnesium 1.7 mg/dl (1.6-2.3)
--- NOTE | 2025-04-14 11:30 | HMH.PHAAMS2 ---
- Antimicrobial Stewardship Review culture & sensitivity review Stewardship interventions: culture & sensitivity review Comments: REVIEWED URINE CULTURE, APPROPRIATE TREATMENT BASED ON URINE CULTURE
[2025-04-14 11:38] LABS: POC Glucose,Bedside 353 gm/dL (70-110)
[2025-04-14 11:50] VITALS: BP 136/83; PULSE 68; RESP 16; TEMP 36.7; O2SAT 97
[2025-04-14] MEDS: MAGNESIUM SULFATE IN WATER 2 GM/50 ML PIGGYBACK IV ×2 (14:34→15:52)
[2025-04-14 16:00] VITALS: BP 134/88; PULSE 74; RESP 16; TEMP 36.7; O2SAT 96
--- NOTE | 2025-04-14 17:06 | PC.NURSE ---
Pt has remained in the recliner for the entirety of the shift. rios remains in place draining clear yellow urine. dressing to R foot remains c/d/i. pt able to ambulate independently. abx given per sep. magnesium and potassium replaced per electrolyte protocol. bumex infusing at 10ml/hr. no needs at this time. call light within reach.
[2025-04-14 20:00] VITALS: BP 148/95; PULSE 73; RESP 16; TEMP 36.6; O2SAT 94
[2025-04-14 20:14] LABS: POC Glucose,Bedside 315 gm/dL (70-110)
[2025-04-14] MEDS: ATORVASTATIN 40MG TABLET 40 MG PO (20:36)
[2025-04-14] MEDS: TAMSULOSIN 0.4MG CAPSULE 0.4 MG PO (20:36)
[2025-04-14] MEDS: TRAZODONE 50MG TABLET 100 MG PO (20:37)
[2025-04-14] MEDS: INSULIN GLARGINE 100 UNITS/ML 3ML FLEXPEN 50 UNIT SUBCUT (20:38)
[2025-04-15] VITALS (8 sets, daily range): BP systolic 127–147; BP diastolic 77–98; PULSE 70–89; RESP 12–18; TEMP 36.6–37.1; O2SAT 95–98; BMI 74.9
[2025-04-15] MEDS: BUMETANIDE 10 MG in 0.9 % SODIUM CHLORIDE 60 ML IV ×3 (01:34→22:28)
--- NOTE | 2025-04-15 04:27 | INFXCTL.NOTE ---
Pt. is alert and orientated x 4. Pt. was admitted for UTI with positive urine cultures for ESBL. also admitted for volume overload, and BLE uclers. P. is on room air. Pt. is getting IV bumex for the volume overload. Pt has had good response to the Bumex. Pt. has a urinary catheter in place. Besides UTI Pt. had some urinary retention. Barber cath in place and draining clear yellow urine. Pt. eating and drinking well. Pt. mostly sitting up or laying back in the recliner chair as position of comfort. Pt. getting IV antibiotics. ACHS blood sugars done . blood sugar has remained high. Sugars covered with Insulin. Pt. is able to stand to reposition self. Pt. c/o pain to legs. Pt. medicated for pain as per SEP. Pt. has dressing to left. foot. dressing change done this shift. Dressing change, wound to foot cleansed, emycin ointment applied, betadine soaked gauze applied, ABD pad , Kerlix gauze and mary wraps applied. right leg has ulcers and blisters Bactoban ointment applied. Personal items and call escobar in reach. chair in locked position. safety measures in place.
[2025-04-15] MEDS: HYDROCODONE 10MG/APAP 325MG TAB 1 TAB PO ×3 (04:54→20:40)
[2025-04-15] MEDS: MEROPENEM 1 GM in 0.9 % SODIUM CHLORIDE 100 ML IV ×3 (05:44→22:11)
[2025-04-15 06:06] LABS: POC Glucose,Bedside 211 gm/dL (70-110)
[2025-04-15] MEDS: humaLOG 100 UNITS/ML 10ML VIAL (SSI) SUBCUT ×4 (06:09→21:03)
[2025-04-15] MEDS: HUMULIN R U 200 EACH SUBCUT ×2 (06:18→17:55)
[2025-04-15 07:08] LABS: Hematocrit 38.1 % (42.0-52.0); Hemoglobin 11.1 g/dL (14.1-18.0); Immature Granulocytes % 0.5 %; Mean Corpuscular HGB Conc 29.1 g/dL (31.8-35.4); Mean Corpuscular Hemoglobin 22.6 pg (27.0-31.2); Mean Corpuscular Volume 77.6 fl (80-94); Nucleated Red Blood Cells % 0 %; Platelet Count 235 K/mm3 (142-424); Red Blood Count 4.91 M/mm3 (4.60-6.20); Red Cell Distribution Width-SD 53.2 fL; White Blood Count 8.3 K/mm3 (4.8-10.8)
[2025-04-15 07:24] LABS: Albumin Level 3.9 g/dl (3.5-5.0); Chloride 84 mmol/L (98-107); Sodium 134 mmol/L (136-145)
[2025-04-15 07:27] LABS: Alanine Aminotransferase 17 U/L (12-78); Albumin/Globulin Ratio 0.8 (1.1-1.8); Alkaline Phosphatase 89 U/L (38-126); Anion Gap 14.0 mEq/L (5-15); Aspartate Amino Transferase 23 U/L (17-59); Bilirubin,Total 0.8 mg/dl (0.2-1.3); Blood Urea Nitrogen 12 mg/dl (9-20); Calcium 9.1 mg/dl (8.4-10.2); Carbon Dioxide 39 mmol/L (22.0-30.0); Creatinine Clearance Estimated 125 mL/min (50-200); Creatinine,Serum 0.80 mg/dl (0.66-1.25); Estimated Glomerular Filt Rate 104 ml/min (>60); GFR (African American) 125 ML/MIN (>60); Globulin 4.6 g/dL (1.3-3.2); Glucose 211 mg/dl (74-100); Magnesium 1.8 mg/dl (1.6-2.3); Total Protein,Serum 8.5 g/dl (6.3-8.2)
[2025-04-15] MEDS: INSULIN REGULAR HUM U 175 EACH SUBCUT ×2 (07:30→16:41)
[2025-04-15 08:01] LABS: Potassium 3.0 mmoL/L (3.5-5.1)
--- NOTE | 2025-04-15 08:01 | P.PN_ITS ---
Subjective *Date: 04/15/25 *Time: 09:28 Interval history: Patient stable on room air. Feeling somewhat better today. Would like to trial having his catheter out once he is off the Bumex drip. Denies chest pain or shortness of breath. No bowel movement since Thursday, discussed starting bowel regimen today. Medical Exam Vital signs and Labs for Last 24 Hours: Vital Signs Temp Pulse Pulse Resp BP Pulse Ox O2 Del Method 04/15/25 07:53 97.9 F 76 16 147/77 H 95 Room Air 04/15/25 06:37 Room Air 04/15/25 05:00 Room Air 04/15/25 04:00 98.6 F 80 16 146/98 H 96 Room Air 04/15/25 03:00 Room Air 04/15/25 01:00 Room Air 04/15/25 00:00 98.6 F 75 12 131/85 96 Room Air 04/14/25 23:00 Room Air 04/14/25 21:00 Room Air 04/14/25 20:00 16 94 L Room Air 04/14/25 20:00 97.8 F 73 16 148/95 H 94 L Room Air 04/14/25 18:37 Room Air 04/14/25 17:00 Room Air 04/14/25 16:00 98.1 F 74 16 134/88 96 Room Air 04/14/25 15:00 Room Air 04/14/25 13:00 Room Air 04/14/25 11:50 98.1 F 68 16 136/83 97 Room Air 04/14/25 11:00 Room Air 04/14/25 09:00 Room Air Intake and Output 04/14/25 04/15/25 04/15/25 23:59 07:59 15:59 Intake Total 1090.667 / 6008.667 788.833 / 788.833 Output Total 3600 / 35045 3500 / 3500 Balance -2509.333 / -5591.333 -2711.167 / -2711.167 Intake: Intake, Oral Amount 860 / 5428 600 / 600 Intake, Total IV Amount 230.667 / 580.667 188.833 / 188.833 Bumetanide 10 mg In 0.9 % 80.667 / 180.667 88.833 / 88.833 Sodium Chloride 60 ml @ 10 mls/ hr IV .Q10H [facility] Rx#:[id number] Magnesium Sulfate in Water 2 gm 50 / 100 In 50 ml @ 50 mls/hr IV Q1H [facility] Rx#:[id number] Meropenem 1 gm In 0.9 % Sodium 100 / 300 100 / 100 Chloride 100 ml @ 100 mls/hr IV Q8H [facility] Rx#:[id number] Output: Output, Urine Amount 3600 / 42972 3500 / 3500 Other: Number of Unmeasured Voids 0 0 Weight 251.2 kg Patient Weight 04/15/25 23:59 Weight 251.2 kg Laboratory Results - last 24 hr 04/14/25 05:47: Magnesium 1.7 D 04/14/25 11:31: POC Glucose 353 H* 04/14/25 20:04: POC Glucose 315 H* 04/15/25 05:57: POC Glucose 211 H 04/15/25 06:34: WBC 8.3 D, RBC 4.91, Hgb 11.1 L, Hct 38.1 L, MCV 77.6 L, MCH 22.6 L, MCHC 29.1 L, RDW 19.4 H, Plt Count 235, MPV 9.2, Neut % (Auto) 83.1 H, Lymph % (Auto) 9.1 L, [place] % (Auto) 5.0, Eos % (Auto) 1.9, Baso % (Auto) 0.4, Neut # (Auto) 6.9, Lymph # (Auto) 0.8, [place] # (Auto) 0.4, Eos # (Auto) 0.2, Baso # (Auto) 0.0, Sodium 134 L, Potassium 3.0 L, Chloride 84 L, Carbon Dioxide 39 H, Anion Gap 14.0, BUN 12, Creatinine 0.80, Estimated Creat Clear 125, Estimated GFR 104, Est GFR ( Amer) 125, Glucose 211 H, Calcium 9.1, Magnesium 1.8, Total Bilirubin 0.8, AST 23, ALT 17, Alkaline Phosphatase 89, Total Protein 8.5 H, Albumin 3.9, Globulin 4.6 H, Albumin/Globulin Ratio 0.8 L I & O for Labs for Last 24 Hours: Intake & Output 04/12/25 04/13/25 04/14/25 04/15/25 23:59 23:59 23:59 23:59 Intake Total 635.333 / 855.185 0383 / 5928 5408.667 / 6008.667 788.833 / 788.833 Output Total 4675 / 5825 03641 / 35126 21530 / 88782 3500 / 3500 Balance -4039.667 / -4889.667 -6035 / -6077 -4791.333 / -5591.333 -2711.167 / - 2711.167 Weight 254.465 kg 254.012 kg 254.012 kg 251.2 kg Microbiology Reports for the Last 24 Hours: Microbiology 04/12/25 12:52 Blood Blood Culture - Preliminary NO GROWTH AFTER 48 HOURS 04/12/25 12:42 Blood Blood Culture - Preliminary NO GROWTH AFTER 48 HOURS Constitutional: Present no acute distress, morbidly obese and cooperative Head: Present atraumatic Eyes: Present as per HPI ENT: Present normal exam Neck: Present normal inspection Respiratory: Present decreased breath sounds, CTA bilaterally, normal respiratory effort and able to speak in complete sentences; Absent wheezes or crackles Cardiac: Present Reg Rate and Rhythm; Absent No Murmur GI: Present soft and normal bowel sounds; Absent distention or tenderness Rectal (male): Present deferred (male): Present deferred Comment:: rios catheter in place Extremities: Present edema (1+ bilateral lower extremity to mid thigh) Comment:: Wounds noted on left lower leg, right lateral foot dressing in place; chronic stasis dermatitis of bilateral lower extremity Skin: Present erythema and wounds Neuro: Present alert, awake and oriented x 3 Assessment and Plan *Assessment and plan (1) Acute urinary retention: Status: Acute Category: Medical Code(s): R33.8 - Other retention of urine (2) Acute on chronic heart failure with preserved ejection fraction (HFpEF): Status: Acute Category: Medical Code(s): I50.33 - Acute on chronic diastolic (congestive) heart failure (3) Paroxysmal A-fib: Status: Resolved Category: Medical Code(s): I48.0 - Paroxysmal atrial fibrillation (4) Non-healing wound of lower extremity: Status: Acute Category: Medical Code(s): S81.809A - Unspecified open wound, unspecified lower leg, initial encounter (5) UTI due to extended-spectrum beta lactamase (ESBL) producing Escherichia coli: Status: Acute Category: Medical Code(s): N39.0 - Urinary tract infection, site not specified; B96.29 - Other Escherichia coli [E. coli] as the cause of diseases classified elsewhere; Z16.12 - Extended spectrum beta lactamase (ESBL) resistance (6) Body mass index [BMI] 70 or greater, adult: Status: Acute Category: Medical Code(s): Z68.45 - Body mass index [BMI] 70 or greater, adult (7) Hypertension: Status: Chronic Qualifiers: Hypertension type: essential hypertension Qualified Code(s): I10 - Essential (primary) hypertension Category: Medical Code(s): I10 - Essential (primary) hypertension (8) Blister of left lower leg: Status: Acute Qualifiers: Encounter type: initial encounter Qualified Code(s): S80.822A - Blister (nonthermal), left lower leg, initial encounter Category: Medical Code(s): S80.822A - Blister (nonthermal), left lower leg, initial encounter (9) Diabetic foot ulcer: Status: Acute Qualifiers: Diabetes mellitus type: type 2 Diabetic foot ulcer location: unspecified part of foot Laterality: right Non-pressure ulcer stage: with fat layer exposed Qualified Code(s): E11.621 - Type 2 diabetes mellitus with foot ulcer; L97.512 - Non-pressure chronic ulcer of other part of right foot with fat layer exposed Category: Medical Code(s): E11.621 - Type 2 diabetes mellitus with foot ulcer; L97.509 - Non-pressure chronic ulcer of other part of unspecified foot with unspecified severity (10) Chronic a-fib: Status: Acute Category: Medical Code(s): I48.20 - Chronic atrial fibrillation, unspecified (11) Hypomagnesemia: Status: Acute Category: Medical Code(s): E83.42 - Hypomagnesemia Plan Mr. Russell is a 49-year-old male who presented to the emergency department due to a urinary tract infection for which culture and sensitivity showed positive for ESBL. In addition to this finding, patient was extremely edematous in bilateral lower extremities. Patient has been following with cardiology who has been titrating his torsemide, recently increasing it to 40 mg 4 times daily. Patient admits to only taking the medication approximately 3 times daily. Patient has a significant medical history of morbid obesity BMI >70, HFpEF, UTI, insulin-dependent diabetes, urinary retention, cellulitis bilateral lower extremities, BPH, A-fib, QUINN, osteoarthritis, chronic pain, DDD, depression, COPD, hypertension, and anxiety. Patient presented to the emergency department 5 days ago with complaints of acute urinary retention and balanitis. Findings on his urinalysis were consistent with UTI and he was discharged home on cefdinir. Cultures returned today and were positive for ESBL E. coli sensitive to meropenem/ertapenem, Zosyn, and tobramycin. In addition to UTI patient has been being followed by cardiology for fluid retention and HFpEF. Patient complains today of bilateral lower extremity edema from feet to mid thigh. He does deny shortness of breath, chest pain, abdominal pain, fevers, chills, nausea, vomiting, diarrhea. I was consulted by the ER physician for admission for HFpEF exacerbation and MDR UTI. I agreed to admit the patient. Patient has been responding to diuretics. Down at least 17 L. Feeling better. Continues to require aggressive diuresis with drip at least for today. Will transition to oral regimen prior to discharge. Problems addressed as follows: #Acute on chronic HFpEF exacerbation ? Patient continues to appear volume overloaded with weeping edema and skin breakdown noted on bilateral lower extremities. Patient is morbidly obese, BMI greater than 75. Patient has been seeing cardiology who recently increased his torsemide 40 mg to 4 times daily. Patient states he has been taking the medication 3 times daily. ? Continuing Bumex drip 1 mg/h today. Negative greater than 17 L. Will stop drip after midnight and consider transitioning to 2 mg Bumex IV twice daily tomorrow. - Plan to remove catheter once patient is off drip - Kidney function remained stable with BUN 12, creatinine 0.8. Bicarb is increasing at 39, has some contraction alkalosis. Will administer acetazolamide 250 mg twice daily x 3 doses. ? Continue to monitor CBC, CMP, magnesium-these are ordered for the a.m. #Right lateral foot diabetic ulcer, present on admission # Left leg stasis wounds, present on admission ? Patient has multiple wounds on his lower extremities and feet. Left lateral foot, right lateral foot, right proximal lateral foot ulcer. Patient is seeing podiatry for regular dressing changes and management. Wounds were last debrided and cleaned on 04/05/2025. Patient wound dressed with Santyl to the eschar tissue only, then Betadine soaked gauze, Kerlix, Owen to the rest of the foot. - Continue Betadine soaked gauze, Kerlix, Owen daily wound changes. Topical erythromycin ointment applied per podiatry recommendation. ? Daily dressing changes ordered. Wound culture positive for Corynebacterium xerosis. Appears bacteria is typically sensitive to meropenem and erythromycin, currently do not have sensitivities. #Urinary tract infection, ESBL E. coli present on admission #Acute urinary retention ? Patient was recently seen in the ED for urinary retention, urine culture came back positive for ESBL E. coli sensitive to ertapenem/meropenem. Patient receiving meropenem 1 g every 8 hour. Patient will need 7 days IV antibiotics. Blood cultures show no growth after 24 hours. ? Patient currently has Rios catheter in place for urinary retention. ? Continue tamsulosin, increase to 0.8 mg HS #Hypomagnesemia #Hypokalemia -Potassium 3.0, magnesium 1.8, replacing per protocol. #Paroxysmal A-fib: Patient has paroxysmal A-fib, EKG shows NSR on admission. Continue bisoprolol 5 mg twice daily, diltiazem 120 mg daily, and Xarelto 20 mg daily. #Hypertension: Continue spironolactone 150 mg daily and atorvastatin 40 mg at bedtime. #Insulin-dependent diabetes: A1c 8.9%. Continuing sliding scale insulin. Resumed home regimen of twice daily U-500. Decreased to 175 units twice daily. Added long-acting insulin yesterday. Responded well with improvement in glucose this morning to 211. Will increase to 70 units glargine tonight. Goal glucose less than 200 in the morning - ACHS fingersticks ordered. - Hold home metformin #Anxiety: Continue Vraylar 3 mg daily, lorazepam 1 mg daily as needed, ve nlafaxine 150 mg daily. #Insomnia: Continue trazodone 100 mg at bedtime. #GERD: Continue omeprazole 40 mg twice daily. #Chronic pain: Continue [place] 10-325 mg 3 times daily as needed for pain, gabapentin 600 mg 3 times daily #COPD: Patient O2 greater than 90% on room air. Lungs CTA. DuoNebs every 6 hours ordered as needed for shortness of breath. #Morbid obesity: Patient morbidly obese, BMI greater than 77. This greatly complicates all aspects of patient care. Full code Ambulate as tolerated Diabetic diet VTE?Xarelto 20 mg daily
[2025-04-15] MEDS: VENLAFAXINE XR 75MG CAPSULE 150 MG PO (09:00)
[2025-04-15] MEDS: GABAPENTIN 600MG TABLET 600 MG PO ×3 (09:00→21:03)
[2025-04-15] MEDS: dilTIAZem ER 120MG CAPSULE 120 MG PO (09:00)
[2025-04-15] MEDS: BISOPROLOL 5MG TABLET 5 MG PO ×2 (09:00→20:40)
[2025-04-15] MEDS: SPIRONOLACTONE 25MG TABLET 100 MG PO (09:00)
[2025-04-15] MEDS: POTASSIUM CHLORIDE 20MEQ TAB 40 MEQ PO ×3 (09:00→16:40)
[2025-04-15] MEDS: PANTOPRAZOLE 40MG TABLET 40 MG PO ×2 (09:00→20:40)
[2025-04-15] MEDS: NYSTATIN TOPICAL POWDER 30GM TP ×4 (09:01→20:44)
[2025-04-15] MEDS: ERYTHROMYCIN BASE 3.5 GM OINT...G. OP ×2 (09:02→20:45)
[2025-04-15] MEDS: MUPIROCIN 2% OINTMENT 22GM TUBE TP ×2 (09:12→20:44)
[2025-04-15] MEDS: ACETAMINOPHEN 325MG TAB 650 MG PO (09:15)
--- NOTE | 2025-04-15 09:24 | PC.NURSE ---
pts insulin dose was changed for the humulin R per dr osullivan after the morning dose was to be given. I charted the dose i gave which is the new order of 175 units as an unscheduled dose because the spot for 729 was martinez. i verified this with arlet jade.
[2025-04-15] MEDS: MAGNESIUM CITRATE 296ML BOTTLE 296 ML PO (09:43)
[2025-04-15] MEDS: POLYETHYLENE GLYCOL 3350 17 GM PACKET PO (09:43)
--- NOTE | 2025-04-15 10:40 | EXP.PHA.PN ---
Subjective *Date: 04/15/25 *Time: 10:40 Medical Exam Vital signs and Labs for Last 24 Hours: Vital Signs Temp Pulse Pulse Resp BP Pulse Ox O2 Del Method 04/15/25 09:15 Room Air 04/15/25 08:30 95 Room Air 04/15/25 07:53 97.9 F 76 16 147/77 H 95 Room Air 04/15/25 06:37 Room Air 04/15/25 05:00 Room Air 04/15/25 04:00 98.6 F 80 16 146/98 H 96 Room Air 04/15/25 03:00 Room Air 04/15/25 01:00 Room Air 04/15/25 00:00 98.6 F 75 12 131/85 96 Room Air 04/14/25 23:00 Room Air 04/14/25 21:00 Room Air 04/14/25 20:00 16 94 L Room Air 04/14/25 20:00 97.8 F 73 16 148/95 H 94 L Room Air 04/14/25 18:37 Room Air 04/14/25 17:00 Room Air 04/14/25 16:00 98.1 F 74 16 134/88 96 Room Air 04/14/25 15:00 Room Air 04/14/25 13:00 Room Air 04/14/25 11:50 98.1 F 68 16 136/83 97 Room Air 04/14/25 11:00 Room Air Intake and Output 04/14/25 04/15/25 04/15/25 23:59 07:59 15:59 Intake Total 1090.667 / 6008.667 788.833 / 1268.833 480 / 1268.833 Output Total 3600 / 03433 3500 / 4400 900 / 4400 Balance -2509.333 / -5591.333 -2711.167 / -3131.167 -420 / -3131.167 Intake: Intake, Oral Amount 860 / 5428 600 / 1080 480 / 1080 Intake, Total IV Amount 230.667 / 580.667 188.833 / 188.833 Bumetanide 10 mg In 0.9 % 80.667 / 180.667 88.833 / 88.833 Sodium Chloride 60 ml @ 10 mls/ hr IV .Q10H [facility] Rx#:[id number] Magnesium Sulfate in Water 2 gm 50 / 100 In 50 ml @ 50 mls/hr IV Q1H [facility] Rx#:[id number] Meropenem 1 gm In 0.9 % Sodium 100 / 300 100 / 100 Chloride 100 ml @ 100 mls/hr IV Q8H [facility] Rx#:[id number] Output: Output, Urine Amount 3600 / 08553 3500 / 4400 900 / 4400 Other: Number of Unmeasured Voids 0 0 0 Weight 251.2 kg Patient Weight 04/15/25 23:59 Weight 251.2 kg Laboratory Results - last 24 hr 04/14/25 11:31: POC Glucose 353 H* 04/14/25 20:04: POC Glucose 315 H* 04/15/25 05:57: POC Glucose 211 H 04/15/25 06:34: WBC 8.3 D, RBC 4.91, Hgb 11.1 L, Hct 38.1 L, MCV 77.6 L, MCH 22.6 L, MCHC 29.1 L, RDW 19.4 H, Plt Count 235, MPV 9.2, Neut % (Auto) 83.1 H, Lymph % (Auto) 9.1 L, [place] % (Auto) 5.0, Eos % (Auto) 1.9, Baso % (Auto) 0.4, Neut # (Auto) 6.9, Lymph # (Auto) 0.8, [place] # (Auto) 0.4, Eos # (Auto) 0.2, Baso # (Auto) 0.0, Sodium 134 L, Potassium 3.0 L, Chloride 84 L, Carbon Dioxide 39 H, Anion Gap 14.0, BUN 12, Creatinine 0.80, Estimated Creat Clear 125, Estimated GFR 104, Est GFR ( Amer) 125, Glucose 211 H, Calcium 9.1, Magnesium 1.8, Total Bilirubin 0.8, AST 23, ALT 17, Alkaline Phosphatase 89, Total Protein 8.5 H, Albumin 3.9, Globulin 4.6 H, Albumin/Globulin Ratio 0.8 L I & O for Labs for Last 24 Hours: Intake & Output 04/12/25 04/13/25 04/14/25 04/15/25 23:59 23:59 23:59 23:59 Intake Total 635.333 / 887.802 9228 / 5928 4746.667 / 7078.667 1268.833 / 1268.833 Output Total 4675 / 5825 33120 / 45202 38880 / 04541 4400 / 4400 Balance -4039.667 / -4889.667 -6035 / -6077 -4791.333 / -5591.333 -3131.167 / -3131.167 Weight 254.465 kg 254.012 kg 254.012 kg 251.2 kg Microbiology Reports for the Last 24 Hours: Microbiology 04/12/25 12:52 Blood Blood Culture - Preliminary NO GROWTH AFTER 48 HOURS 04/12/25 12:42 Blood Blood Culture - Preliminary NO GROWTH AFTER 48 HOURS The patient's infection will respond to the chosen ABx?: Yes Is the patient receiving the right drug, dose, and route?: Yes Could a more targeted ABx be ordered?: No (URINE E COLI X3 SENSITIVE TO MERREM)
[2025-04-15 16:41] LABS: POC Glucose,Bedside 359 gm/dL (70-110)
--- NOTE | 2025-04-15 18:08 | PC.NURSE ---
pt received 175 units of the humulin-R this morning at 0730. at 1100 i gave him 5 units per the sliding scale. his glucose was up again at supper so he initially got 175 units of humulin-R and 12 units of humalog per the sliding scale. dr osullivan changed the order back to 200 units of the humulin-R so i gave him an additional 25 units to equal the 200.
[2025-04-15] MEDS: ATORVASTATIN 40MG TABLET 40 MG PO (20:39)
[2025-04-15] MEDS: TAMSULOSIN 0.4MG CAPSULE 0.8 MG PO (20:41)
[2025-04-15] MEDS: TRAZODONE 50MG TABLET 100 MG PO (20:41)
[2025-04-15 20:56] LABS: POC Glucose,Bedside 237 gm/dL (70-110)
[2025-04-15] MEDS: INSULIN GLARGINE 100 UNITS/ML 3ML FLEXPEN 70 UNIT SUBCUT (21:04)
[2025-04-16] VITALS (8 sets, daily range): BP systolic 113–150; BP diastolic 67–90; PULSE 71–87; RESP 14–18; TEMP 36.6–37.1; O2SAT 94–99; BMI 75.2
[2025-04-16] MEDS: HYDROCODONE 10MG/APAP 325MG TAB 1 TAB PO ×3 (04:51→21:06)
[2025-04-16] MEDS: MEROPENEM 1 GM in 0.9 % SODIUM CHLORIDE 100 ML IV ×3 (05:40→21:05)
[2025-04-16 06:01] LABS: POC Glucose,Bedside 123 gm/dL (70-110)
--- NOTE | 2025-04-16 06:27 | PC.NURSE ---
Pt. is alert and orientated x 4. pt. is on room air. Pt. has been up in the recliner chair this whole shift. Pt. does stand up and shifts himself. Pt. on Bumex drip. Pt. has a Barber cath in place draining clear yellow urine. Pt getting IV antibiotics.. Pt. c/o pain to BLE and buttocks, Medicated for pain per the MAR. BLE swollen and skin broken down and ulcerative, right foot. heel wound has a dressing in place. Dressing changed overnight. Wound cleaned, betadine gauze, ABD pad, Kerlix and mary wrap dressing in place. left leg has blisters bactoban ointment applied after cleansing leg. ACHS blood sugars obtained and covered with Insulin. Pt. has no other needs or complaints. Personal items and call escobar in reach, Chair is lock. safety measures in place.
[2025-04-16 07:39] LABS: Albumin Level 4.2 g/dl (3.5-5.0); Chloride 87 mmol/L (98-107); Potassium 3.4 mmoL/L (3.5-5.1)
[2025-04-16 07:42] LABS: Alanine Aminotransferase 17 U/L (12-78); Albumin/Globulin Ratio 0.9 (1.1-1.8); Alkaline Phosphatase 98 U/L (38-126); Anion Gap 15.4 mEq/L (5-15); Aspartate Amino Transferase 26 U/L (17-59); Bilirubin,Total 0.7 mg/dl (0.2-1.3); Blood Urea Nitrogen 12 mg/dl (9-20); Calcium 9.6 mg/dl (8.4-10.2); Carbon Dioxide 34 mmol/L (22.0-30.0); Creatinine Clearance Estimated 100 mL/min (50-200); Creatinine,Serum 1.00 mg/dl (0.66-1.25); Estimated Glomerular Filt Rate 80 ml/min (>60); GFR (African American) 97 ML/MIN (>60); Globulin 4.7 g/dL (1.3-3.2); Glucose 152 mg/dl (74-100); Sodium 133 mmol/L (136-145); Total Protein,Serum 8.9 g/dl (6.3-8.2)
--- NOTE | 2025-04-16 07:58 | EXP.ACUTE.PN ---
Subjective *Date: 04/16/25 *Time: 10:02 Medical Exam Vital signs and Labs for Last 24 Hours: Vital Signs Temp Pulse Resp BP Pulse Ox O2 Del Method 04/16/25 07:34 98.0 F 75 18 150/90 H 97 Room Air 04/16/25 07:00 Nasal Cannula 04/16/25 05:00 Room Air 04/16/25 04:00 98.0 F 71 16 143/69 H 99 Room Air 04/16/25 03:00 Room Air 04/16/25 01:00 Room Air 04/16/25 00:00 98.8 F 76 14 144/77 H 96 Room Air 04/15/25 23:00 Room Air 04/15/25 21:00 Room Air 04/15/25 20:00 16 98 Room Air 04/15/25 19:38 98.7 F 70 16 133/78 98 Room Air 04/15/25 18:48 Room Air 04/15/25 17:00 Room Air 04/15/25 16:00 98.4 F 72 18 127/95 H 96 Room Air 04/15/25 15:10 Room Air 04/15/25 13:00 Room Air 04/15/25 11:49 98.3 F 89 18 137/94 H 98 Room Air 04/15/25 11:00 Room Air 04/15/25 09:15 Room Air 04/15/25 08:30 95 Room Air Intake and Output 04/15/25 04/15/25 04/16/25 15:59 23:59 07:59 Intake Total 1160 / 3668.333 719.5 / 3668.333 1183 / 1183 Output Total 2200 / 9550 3850 / 9550 1800 / 1800 Balance -1040 / -5881.667 -3130.5 / -5881.667 -617 / -617 Intake: Intake, Oral Amount 960 / 3080 520 / 3080 1000 / 1000 Intake, Total IV Amount 200 / 588.333 199.5 / 588.333 183 / 183 Bumetanide 10 mg In 0.9 % 100 / 288.333 99.5 / 288.333 83 / 83 Sodium Chloride 60 ml @ 10 mls/ hr IV .Q10H [facility] Rx#:[id number] Meropenem 1 gm In 0.9 % Sodium 100 / 300 100 / 300 100 / 100 Chloride 100 ml @ 100 mls/hr IV Q8H [facility] Rx#:[id number] Output: Output, Urine Amount 2200 / 9550 3850 / 9550 1800 / 1800 Other: Number of Unmeasured Voids 0 0 0 Number of Bowel Movements 1 Weight 252.1 kg Patient Weight 04/16/25 23:59 Weight 252.1 kg Laboratory Results - last 24 hr 04/15/25 06:34: Sodium 134 L, Potassium 3.0 L, Chloride 84 L, Carbon Dioxide 39 H, Anion Gap 14.0, BUN 12, Creatinine 0.80, Estimated Creat Clear 125, Estimated GFR 104, Est GFR ( Amer) 125, Glucose 211 H, Calcium 9.1, Magnesium 1.8, Total Bilirubin 0.8, AST 23, ALT 17, Alkaline Phosphatase 89, Total Protein 8.5 H, Albumin 3.9, Globulin 4.6 H, Albumin/Globulin Ratio 0.8 L 04/15/25 16:33: POC Glucose 359 H* 04/15/25 20:49: POC Glucose 237 H 04/16/25 05:46: POC Glucose 123 H 04/16/25 07:00: Sodium 133 L, Potassium 3.4 L, Chloride 87 L, Carbon Dioxide 34 H, Anion Gap 15.4 H, BUN 12, Creatinine 1.00 D, Estimated Creat Clear 100, Estimated GFR 80, Est GFR ( Amer) 97 D, Glucose 152 H, Calcium 9.6, Total Bilirubin 0.7, AST 26, ALT 17, Alkaline Phosphatase 98, Total Protein 8.9 H, Albumin 4.2, Globulin 4.7 H, Albumin/Globulin Ratio 0.9 L I & O for Labs for Last 24 Hours: Intake & Output 04/13/25 04/14/25 04/15/25 04/16/25 23:59 23:59 23:59 23:59 Intake Total 5220 / 5928 5408.667 / 6008.667 2668.333 / 3668.333 1183 / 1183 Output Total 22462 / 59781 50598 / 13875 9550 / 9550 1800 / 1800 Balance -6035 / -6077 -4791.333 / -5591.333 -6881.667 / -5881.667 -617 / -617 Weight 254.012 kg 254.012 kg 251.2 kg 252.1 kg Constitutional: Present no acute distress, morbidly obese and cooperative Head: Present atraumatic Eyes: Present as per HPI ENT: Present normal exam Neck: Present normal inspection Respiratory: Present decreased breath sounds, CTA bilaterally, normal respiratory effort and able to speak in complete sentences; Absent wheezes or crackles Cardiac: Present Reg Rate and Rhythm; Absent No Murmur GI: Present soft and normal bowel sounds; Absent distention or tenderness Rectal (male): Present deferred (male): Present deferred Comment:: rios catheter in place Extremities: Present edema (1+ bilateral lower extremity to mid thigh) Comment:: Wounds noted on left lower leg, right lateral foot dressing in place; chronic stasis dermatitis of bilateral lower extremity; overall legs look better. Skin: Present erythema and wounds Neuro: Present alert, awake and oriented x 3 Assessment and Plan *Assessment and plan (1) Acute urinary retention: Status: Acute Category: Medical Code(s): R33.8 - Other retention of urine (2) Acute on chronic heart failure with preserved ejection fraction (HFpEF): Status: Acute Category: Medical Code(s): I50.33 - Acute on chronic diastolic (congestive) heart failure (3) Paroxysmal A-fib: Status: Resolved Category: Medical Code(s): I48.0 - Paroxysmal atrial fibrillation (4) Non-healing wound of lower extremity: Status: Acute Category: Medical Code(s): S81.809A - Unspecified open wound, unspecified lower leg, initial encounter (5) UTI due to extended-spectrum beta lactamase (ESBL) producing Escherichia coli: Status: Acute Category: Medical Code(s): N39.0 - Urinary tract infection, site not specified; B96.29 - Other Escherichia coli [E. coli] as the cause of diseases classified elsewhere; Z16.12 - Extended spectrum beta lactamase (ESBL) resistance (6) Body mass index [BMI] 70 or greater, adult: Status: Acute Category: Medical Code(s): Z68.45 - Body mass index [BMI] 70 or greater, adult (7) Hypertension: Status: Chronic Qualifiers: Hypertension type: essential hypertension Qualified Code(s): I10 - Essential (primary) hypertension Category: Medical Code(s): I10 - Essential (primary) hypertension (8) Blister of left lower leg: Status: Acute Qualifiers: Encounter type: initial encounter Qualified Code(s): S80.822A - Blister (nonthermal), left lower leg, initial encounter Category: Medical Code(s): S80.822A - Blister (nonthermal), left lower leg, initial encounter (9) Diabetic foot ulcer: Status: Acute Qualifiers: Diabetes mellitus type: type 2 Diabetic foot ulcer location: unspecified part of foot Laterality: right Non-pressure ulcer stage: with fat layer exposed Qualified Code(s): E11.621 - Type 2 diabetes mellitus with foot ulcer; L97.512 - Non-pressure chronic ulcer of other part of right foot with fat layer exposed Category: Medical Code(s): E11.621 - Type 2 diabetes mellitus with foot ulcer; L97.509 - Non-pressure chronic ulcer of other part of unspecified foot with unspecified severity (10) Chronic a-fib: Status: Acute Category: Medical Code(s): I48.20 - Chronic atrial fibrillation, unspecified (11) Hypomagnesemia: Status: Acute Category: Medical Code(s): E83.42 - Hypomagnesemia Plan Mr. Russell is a 49-year-old male who presented to the emergency department due to a urinary tract infection for which culture and sensitivity showed positive for ESBL. In addition to this finding, patient was extremely edematous in bilateral lower extremities. Patient has been following with cardiology who has been titrating his torsemide, recently increasing it to 40 mg 4 times daily. Patient admits to only taking the medication approximately 3 times daily. Patient has a significant medical history of morbid obesity BMI >70, HFpEF, UTI, insulin-dependent diabetes, urinary retention, cellulitis bilateral lower extremities, BPH, A-fib, QUNIN, osteoarthritis, chronic pain, DDD, depression, COPD, hypertension, and anxiety. Patient presented to the emergency department 5 days ago with complaints of acute urinary retention and balanitis. Findings on his urinalysis were consistent with UTI and he was discharged home on cefdinir. Cultures returned today and were positive for ESBL E. coli sensitive to meropenem/ertapenem, Zosyn, and tobramycin. In addition to UTI patient has been being followed by cardiology for fluid retention and HFpEF. Patient complains today of bilateral lower extremity edema from feet to mid thigh. He does deny shortness of breath, chest pain, abdominal pain, fevers, chills, nausea, vomiting, diarrhea. I was consulted by the ER physician for admission for HFpEF exacerbation and MDR UTI. I agreed to admit the patient. Patient has been responding to diuretics. Down at least 22 L. Feeling better. Discontinue Bumex drip. Transition to twice daily IV. Will remove Rios today. Transition to ertapenem. Anticipate discharge in the next day or 2. Problems addressed as follows: #Acute on chronic HFpEF exacerbation ? Having good response to diuresis. Down 22 L since initiating drip. Discontinue drip. Continue Bumex 2 mg IV twice daily. - Remove Rios catheter today - Labs look stable with BUN 12, creatinine 1. Magnesium 2, potassium 3.4. Replacing per protocol. - Bicarb 34, responded well to acetazolamide. ? Continue to monitor CBC, CMP, magnesium-these are ordered for the a.m. #Right lateral foot diabetic ulcer, present on admission # Left leg stasis wounds, present on admission ? Patient has multiple wounds on his lower extremities and feet. Left lateral foot, right lateral foot, right proximal lateral foot ulcer. Patient is seeing podiatry for regular dressing changes and management. Wounds were last debrided and cleaned on 04/05/2025. Patient wound dressed with Santyl to the eschar tissue only, then Betadine soaked gauze, Kerlix, Owen to the rest of the foot. - Continue Betadine soaked gauze, Kerlix, Owen daily wound changes. Topical erythromycin ointment applied per podiatry recommendation. ? Daily dressing changes ordered. Wound culture positive for Corynebacterium xerosis. Appears bacteria is typically sensitive to meropenem and erythromycin, currently do not have sensitivities. #Urinary tract infection, ESBL E. coli present on admission #Acute urinary retention ? Patient was recently seen in the ED for urinary retention, urine culture came back positive for ESBL E. coli sensitive to ertapenem/meropenem. Patient receiving meropenem 1 g every 8 hour. Patient will need 7 days IV antibiotics. Blood cultures show no growth. Last dose of antibiotics due on 04/18. ? Continue tamsulosin, increase to 0.8 mg HS - Remove Rios today #Hypomagnesemia #Hypokalemia - Magnesium 2.0, potassium 3.4. #Paroxysmal A-fib: Patient has paroxysmal A-fib, EKG shows NSR on admission. Continue bisoprolol 5 mg twice daily, diltiazem 120 mg daily, and Xarelto 20 mg daily. #Hypertension: Continue spironolactone 150 mg daily and atorvastatin 40 mg at bedtime. #Insulin-dependent diabetes: A1c 8.9%. Continuing sliding scale insulin. Resumed home regimen of twice daily U-500. Decreased to 175 units twice daily. Added long-acting insulin yesterday. Responded well with improvement in glucose this morning to 211. Will increase to 70 units glargine tonight. Goal glucose less than 200 in the morning - ACHS fingersticks ordered. - Hold home metformin #Anxiety: Continue Vraylar 3 mg daily, lorazepam 1 mg daily as needed, venlafaxine 150 mg daily. #Insomnia: Continue trazodone 100 mg at bedtime. #GERD: Continue omeprazole 40 mg twice daily. #Chronic pain: Continue [place] 10-325 mg 3 times daily as needed for pain, gabapentin 600 mg 3 times daily #COPD: Patient O2 greater than 90% on room air. Lungs CTA. DuoNebs every 6 hours ordered as needed for shortness of breath. #Morbid obesity: Patient morbidly obese, BMI greater than 77. This greatly complicates all aspects of patient care. Full code Ambulate as tolerated Diabetic diet VTE?Xarelto 20 mg daily
[2025-04-16 08:34] LABS: Magnesium 2.0 mg/dl (1.6-2.3)
[2025-04-16] MEDS: BISOPROLOL 5MG TABLET 5 MG PO ×2 (09:07→21:07)
[2025-04-16] MEDS: BUMETANIDE 1MG/4ML VIAL 2 MG IV ×2 (09:07→16:17)
[2025-04-16] MEDS: dilTIAZem ER 120MG CAPSULE 120 MG PO (09:08)
[2025-04-16] MEDS: ERYTHROMYCIN BASE 3.5 GM OINT...G. OP ×2 (09:09→21:04)
[2025-04-16] MEDS: GABAPENTIN 600MG TABLET 600 MG PO ×3 (09:09→21:07)
[2025-04-16] MEDS: MUPIROCIN 2% OINTMENT 22GM TUBE TP ×2 (09:10→21:02)
[2025-04-16] MEDS: PANTOPRAZOLE 40MG TABLET 40 MG PO ×2 (09:10→21:07)
[2025-04-16] MEDS: NYSTATIN TOPICAL POWDER 30GM TP ×4 (09:10→21:03)
[2025-04-16] MEDS: SPIRONOLACTONE 25MG TABLET 100 MG PO (09:11)
[2025-04-16] MEDS: VENLAFAXINE XR 75MG CAPSULE 150 MG PO (09:11)
[2025-04-16] MEDS: INSULIN REGULAR HUM U 200 EACH SUBCUT ×2 (09:46→16:30)
[2025-04-16] MEDS: ACETAMINOPHEN 325MG TAB 650 MG PO (10:57)
[2025-04-16] MEDS: humaLOG 100 UNITS/ML 10ML VIAL (SSI) SUBCUT ×3 (11:01→21:03)
[2025-04-16 11:05] LABS: POC Glucose,Bedside 238 gm/dL (70-110)
[2025-04-16 16:32] LABS: POC Glucose,Bedside 226 gm/dL (70-110)
[2025-04-16 20:46] LABS: POC Glucose,Bedside 263 gm/dL (70-110)
[2025-04-16] MEDS: INSULIN GLARGINE 100 UNITS/ML 3ML FLEXPEN 70 UNIT SUBCUT (21:05)
[2025-04-16] MEDS: TAMSULOSIN 0.4MG CAPSULE 0.8 MG PO (21:07)
[2025-04-16] MEDS: TRAZODONE 50MG TABLET 100 MG PO (21:07)
[2025-04-16] MEDS: ATORVASTATIN 40MG TABLET 40 MG PO (21:08)
[2025-04-17] VITALS: BP 112/60; PULSE 58; RESP 16; TEMP 36.5; O2SAT 98
[2025-04-17 04:00] VITALS: BP 153/103; PULSE 77; RESP 12; TEMP 37; O2SAT 100; BMI 76.9
[2025-04-17] MEDS: HYDROCODONE 10MG/APAP 325MG TAB 1 TAB PO (05:14)
[2025-04-17] MEDS: ERTAPENEM SODIUM 1 GM in 0.9 % SODIUM CHLORIDE 50 ML IV (05:15)
[2025-04-17] MEDS: humaLOG 100 UNITS/ML 10ML VIAL (SSI) SUBCUT ×2 (05:25→11:16)
[2025-04-17 05:34] LABS: POC Glucose,Bedside 157 gm/dL (70-110)
--- NOTE | 2025-04-17 06:34 | PC.NURSE ---
PT is alert and oriented X 4, Pt is on room air. Pt has a 20 G in his R A/c, rios was D/c yesterday during the day. Pt has voided per urinal. Pt is on a Diabetic Diet. Last BM was 04/15. Pt has slept in the chair all night. Tried to get the Pt in the bed. He said he sleeps better in the Chair. xarelto in the medication being given for VTE. Pt is on strict I&O. Personal items and call escobar in reach, Chair is lock. safety measures in place. PRECIOUS RYAN RN
[2025-04-17 07:18] VITALS: BP 149/92; PULSE 84; RESP 19; TEMP 36.5; O2SAT 97
[2025-04-17 08:34] LABS: Chloride 89 mmol/L (98-107)
[2025-04-17 08:35] LABS: Albumin Level 3.7 g/dl (3.5-5.0); Potassium 3.3 mmoL/L (3.5-5.1); Sodium 133 mmol/L (136-145)
[2025-04-17 08:37] LABS: Alanine Aminotransferase 16 U/L (12-78); Albumin/Globulin Ratio 0.9 (1.1-1.8); Alkaline Phosphatase 86 U/L (38-126); Anion Gap 13.3 mEq/L (5-15); Aspartate Amino Transferase 19 U/L (17-59); Bilirubin,Total 0.6 mg/dl (0.2-1.3); Blood Urea Nitrogen 16 mg/dl (9-20); Carbon Dioxide 34 mmol/L (22.0-30.0); Creatinine Clearance Estimated 111 mL/min (50-200); Creatinine,Serum 0.90 mg/dl (0.66-1.25); Estimated Glomerular Filt Rate 90 ml/min (>60); GFR (African American) 109 ML/MIN (>60); Globulin 4.0 g/dL (1.3-3.2); Total Protein,Serum 7.7 g/dl (6.3-8.2)
[2025-04-17 08:38] LABS: Calcium 9.4 mg/dl (8.4-10.2); Glucose 162 mg/dl (74-100)
--- NOTE | 2025-04-17 08:58 | P.DS_ITS ---
<Statement entered by Manas Wilson MD - 04/21/25 12:06> Agree with plan of care as outlined by the SCRAPER BURRER. General Admission date:: 04/12/25 Discharge date: 04/17/25 HPI HPI HPI: Mr. Russell is a 49-year-old male who presented to the emergency department today due to a urinary tract infection for which culture and sensitivity showed positive for ESBL. In addition to this finding, patient was extremely edematous in bilateral lower extremities. Patient has been following with cardiology who has been titrating his torsemide, recently increasing it to 40 mg 4 times daily. Patient admits to only taking the medication approximately 3 times daily. Patient has a significant medical history of morbid obesity BMI >70, HFpEF, UTI, insulin-dependent diabetes, urinary retention, cellulitis bilateral lower extremities, BPH, A-fib, QUINN, osteoarthritis, chronic pain, DDD, depression, COPD, hypertension, and anxiety. Patient presented to the emergency department 3 days ago with complaints of acute urinary retention and balanitis. Findings on his urinalysis were consistent with UTI and he was discharged home on cefdinir. Cultures returned today and were positive for ESBL E. coli sensitive to meropenem/ertapenem, Zosyn, and tobramycin. In addition to UTI patient has been being followed by cardiology for fluid retention and HFpEF. Patient complains today of bilateral lower extremity edema from feet to mid thigh. He does deny shortness of breath, chest pain, abdominal pain, fevers, chills, nausea, vomiting, diarrhea. Hospital Course Hospital Course Hospital Course: Mr. Russell is a 49-year-old male who presented to the emergency department due to a urinary tract infection for which culture and sensitivity showed positive for ESBL. In addition to this finding, patient was extremely edematous in bilateral lower extremities. Patient has been following with cardiology who has been titrating his torsemide, recently increasing it to 40 mg 4 times daily. Patient admits to only taking the medication approximately 3 times daily. Patient has a significant medical history of morbid obesity BMI >70, HFpEF, UTI, insulin-dependent diabetes, urinary retention, cellulitis bilateral lower extremities, BPH, A-fib, QUINN, osteoarthritis, chronic pain, DDD, depression, COPD, hypertension, and anxiety. Patient presented to the emergency department 5 days ago with complaints of acute urinary retention and balanitis. Findings on his urinalysis were consistent with UTI and he was discharged home on cefdinir. Cultures returned today and were positive for ESBL E. coli sensitive to meropenem/ertapenem, Zosyn, and tobramycin. In addition to UTI patient has been being followed by cardiology for fluid retention and HFpEF. Patient complains today of bilateral lower extremity edema from feet to mid thigh. He does deny shortness of breath, chest pain, abdominal pain, fevers, chills, nausea, vomiting, diarrhea. I was consulted by the ER physician for admission for HFpEF exacerbation and MDR UTI. I agreed to admit the patient. Patient has been responding to diuretics. Down at least 22 L. Feeling better. Discontinue Bumex drip. Transition to twice daily PO. Barber discontinued. Transition to ertapenem IV. Problems addressed as follows: #Acute on chronic HFpEF exacerbation ? Having good response to diuresis. Down 22 L since initiating drip. Admitted and started on Bumex 1 mg/H during admission, transition yesterday to Bumex 2 mg IV twice daily. Transition today to Bumex 2 mg p.o. daily at discharge. - Labs look stable with BUN 16, creatinine 0.90. Magnesium 2, potassium 3.3. Replace per protocol. ?Discussed with cardiology patient will hold torsemide and transition to Bumex as ordered. Follow-up with cardiology next week. #Right lateral foot diabetic ulcer, present on admission # Left leg stasis wounds, present on admission ? Patient has multiple wounds on his lower extremities and feet. Left lateral foot, right lateral foot, right proximal lateral foot ulcer. Patient is seeing podiatry for regular dressing changes and management. Wounds were last debrided and cleaned on 04/05/2025. Patient wound dressed with Santyl to the eschar tissue only, then Betadine soaked gauze, Kerlix, Owen to the rest of the foot. ? Patient will continue topical erythromycin ointment, Betadine soaked gauze, Kerlix, and Owen daily dressing changes. Follow-up with podiatry next week. ? Wound culture positive for Corynebacterium xerosis. Appears bacteria is typically sensitive to meropenem and erythromycin, currently do not have sensitivities. #Urinary tract infection, ESBL E. coli present on admission #Acute urinary retention ? Patient was recently seen in the ED for urinary retention, urine culture came back positive for ESBL E. coli sensitive to ertapenem/meropenem. Patient receiving meropenem 1 g every 8 hour. Patient will need 7 days IV antibiotics. Blood cultures show no growth. Last dose of antibiotics due on 04/18. Patient transition from meropenem to ertapenem on 04/16, will need 1 more day of IV antibiotics. Patient agreeable to come to outpatient infusion for last dose of IV Invanz tomorrow. ? Continue tamsulosin, increase to 0.8 mg HS ?Patient's Barber was removed yesterday, voiding without issues. #Cirrhosis/hepatomegaly ? Abdomen/pelvis CT on admission showed hepatic megaly 24 cm lobulated liver consistent with cirrhosis. Patient unaware if he has been told he could possibly have cirrhosis in the past. Patient liver enzymes have been normal. Patient denies alcohol use/abuse. Discussed with patient seeing GI in outpatient setting, he is agreeable. Will have patient follow-up with Dr. Wood. ?AST 19, ALT 16. MELD score of 8 points. #Hypomagnesemia #Hypokalemia - Magnesium 2.0, potassium 3.3, replaced per protocol. #Paroxysmal A-fib: Patient has paroxysmal A-fib, EKG shows NSR on admission. Co ntinue bisoprolol 5 mg twice daily, diltiazem 120 mg daily, and Xarelto 20 mg daily at discharge. #Hypertension: Continue spironolactone 150 mg daily and atorvastatin 40 mg at bedtime at discharge. #Insulin-dependent diabetes ?A1c 8.9%. Patient continued on insulin U?500 200 units twice daily, in addition insulin glargine ordered at bedtime, 50 units. Patient should continue to follow with endocrinology. Patient can continue metformin at discharge. #Anxiety: Continue Vraylar 3 mg daily, lorazepam 1 mg daily as needed, venlafaxine 150 mg daily. #Insomnia: Continue trazodone 100 mg at bedtime. #GERD: Continue omeprazole 40 mg twice daily. #Chronic pain: Continue [place] 10-325 mg 3 times daily as needed for pain, gabapentin 600 mg 3 times daily #COPD: Patient O2 greater than 90% on room air. Lungs CTA. DuoNebs every 6 hours ordered as needed for shortness of breath. #Morbid obesity: Patient morbidly obese, BMI greater than 77. This greatly complicates all aspects of patient care. Total time spent on discharge 36 minutes in counseling, documentation, chart review, and direct care with patient. Exam Data for Last 24 hours Vital signs and Labs for Last 24 Hours: Temp Pulse Resp BP Pulse Ox O2 Del Method 97.7 F 84 19 149/92 H 97 Room Air 04/17/25 07:18 04/17/25 07:18 04/17/25 07:18 04/17/25 07:18 04/17/25 07:18 04/17/25 08:00 Laboratory Results - last 24 hr 04/16/25 10:55: POC Glucose 238 H 04/16/25 16:25: POC Glucose 226 H 04/16/25 20:38: POC Glucose 263 H 04/17/25 05:14: POC Glucose 157 H 04/17/25 06:05: Sodium 133 L, Potassium 3.3 L, Chloride 89 L, Carbon Dioxide 34 H, Anion Gap 13.3, BUN 16 D, Creatinine 0.90, Estimated Creat Clear 111, Estimated GFR 90, Est GFR ( Amer) 109, Glucose 162 H, Calcium 9.4, Total Bilirubin 0.6, AST 19 D, ALT 16, Alkaline Phosphatase 86, Total Protein 7.7, Albumin 3.7 D, Globulin 4.0 H, Albumin/Globulin Ratio 0.9 L I & O for Last 24 hours: Intake & Output 04/14/25 04/15/25 04/16/25 04/17/25 23:59 23:59 23:59 23:59 Intake Total 5408.667 / 6008.667 2668.333 / 3668.333 2753 / 3313 1030 / 1030 Output Total 97659 / 59414 9550 / 9550 3200 / 3850 1450 / 1450 Balance -4791.333 / -5591.333 -6881.667 / -5881.667 -447 / -537 -420 / -420 Weight 254.012 kg 251.2 kg 252.1 kg 257.7 kg Microbiology Reports for the Last 24 Hours: Microbiology 04/12/25 12:52 Blood Blood Culture - Preliminary NO GROWTH AFTER 4 DAYS 04/12/25 12:42 Blood Blood Culture - Preliminary NO GROWTH AFTER 4 DAYS Constitutional Constitutional: no acute distress, morbidly obese and cooperative *Routine HEENT Exam Head: Present normocephalic Eye: Present PERRL ENT: Present mucous membranes moist *Routine Neck Exam Neck: Present supple *Routine Respiratory Exam Respiratory: Present CTA bilaterally, distant breath sounds and normal respiratory effort; Absent wheezes or crackles *Routine Cardiovascular Exam Cardiovascular: Present RRR, Normal S1 and Normal S2; Absent murmur *Routine Abdominal Exam Abdominal: Present soft, normoactive bowel sounds and obese; Absent tenderness *Routine Extremities Exam Extremities: Present edema; Absent cyanosis Comments: Pronounced edema, greatly improved since admission. Bilateral lower extremity weeping. He has received wound care to lower extremities-right foot is wrapped. *Routine Skin Exam Skin: Present intact, erythema (Bilateral lower extremities) and wounds (Right foot, left lower leg) *Routine Neurological Exam Neurological: Present alert, oriented X3, vision grossly intact, hearing grossly intact and normal speech Routine Psychiatric Exam Psychiatric: Present cooperative Results Data Completed and Pending Labs on day of discharge: Labs from last 24 hours 04/17/25 04/17/25 04/16/25 06:05 05:14 20:38 Sodium 133 L Potassium 3.3 L Chloride 89 L Carbon Dioxide 34 H Anion Gap 13.3 BUN 16 D Creatinine 0.90 Estimated Creat Clear 111 Estimated GFR 90 Est GFR ( Amer) 109 Glucose 162 H POC Glucose 157 H 263 H Calcium 9.4 Total Bilirubin 0.6 AST 19 D ALT 16 Alkaline Phosphatase 86 Total Protein 7.7 Albumin 3.7 D Globulin 4.0 H Albumin/Globulin Ratio 0.9 L 04/16/25 04/16/25 16:25 10:55 Sodium Potassium Chloride Carbon Dioxide Anion Gap BUN Creatinine Estimated Creat Clear Estimated GFR Est GFR ( Amer) Glucose POC Glucose 226 H 238 H Calcium Total Bilirubin AST ALT Alkaline Phosphatase Total Protein Albumin Globulin Albumin/Globulin Ratio Preliminary micro results at discharge 04/12/25 12:52 Blood Culture - Preliminary Blood NO GROWTH AFTER 4 DAYS 04/12/25 12:42 Blood Culture - Preliminary Blood NO GROWTH AFTER 4 DAYS DS: Diagnosis Discharge Diagnosis (1) Acute urinary retention: Status: Acute Code(s): R33.8 - Other retention of urine (2) Acute on chronic heart failure with preserved ejection fraction (HFpEF): Status: Acute Code(s): I50.33 - Acute on chronic diastolic (congestive) heart failure (3) Paroxysmal A-fib: Status: Resolved Code(s): I48.0 - Paroxysmal atrial fibrillation (4) Non-healing wound of lower extremity: Status: Acute Code(s): S81.809A - Unspecified open wound, unspecified lower leg, initial encounter (5) UTI due to extended-spectrum beta lactamase (ESBL) producing Escherichia coli: Status: Acute Code(s): N39.0 - Urinary tract infection, site not specified; B96.29 - Other Escherichia coli [E. coli] as the cause of diseases classified elsewhere; Z16.12 - Extended spectrum beta lactamase (ESBL) resistance (6) Body mass index [BMI] 70 or greater, adult: Status: Acute Code(s): Z68.45 - Body mass index [BMI] 70 or greater, adult (7) Hypertension: Status: Chronic Code(s): I10 - Essential (primary) hypertension Qualifiers: Hypertension type: essential hypertension Qualified Code(s): I10 - Essential (primary) hypertension (8) Blister of left lower leg: Status: Acute Code(s): S80.822A - Blister (nonthermal), left lower leg, initial encounter Qualifiers: Encounter type: initial encounter Qualified Code(s): S80.822A - Blister (nonthermal), left lower leg, initial encounter (9) Diabetic foot ulcer: Status: Acute Code(s): E11.621 - Type 2 diabetes mellitus with foot ulcer; L97.509 - Non-pressure chronic ulcer of other part of unspecified foot with unspecified severity Qualifiers: Diabetes mellitus type: type 2 Diabetic foot ulcer location: unspecified part of foot Laterality: right Non-pressure ulcer stage: with fat layer exposed Qualified Code(s): E11.621 - Type 2 diabetes mellitus with foot ulcer; L97.512 - Non-pressure chronic ulcer of other part of right foot with fat layer exposed (10) Chronic a-fib: Status: Acute Code(s): I48.20 - Chronic atrial fibrillation, unspecified (11) Hypomagnesemia: Status: Acute Code(s): E83.42 - Hypomagnesemia (12) Cirrhosis: Status: Acute Code(s): K74.60 - Unspecified cirrhosis of liver Meds Home Medications and Allergies Home Medications ?Medication ?Instructions ?Recorded ?Confirmed ?Type pen needle, diabetic 32 gauge x #100 ea 09/16/2304/13 Rx (Comfort EZ Pen [place]) insulin syringe-needle U-100 1 mL #10 ea 02/18/2409/06 History 30 gauge x 1/2 (BD Insulin Syringe Ultra-Fine) metformin 1,000 mg tablet 1,000 mg PO BID 02/18/2408/06 History diltiazem HCl 120 mg 120 mg PO DAILY #90 caps 07/0504/12/25 Rx capsule,extended release 24 hr albuterol sulfate 90 mcg/actuation 2 puff inhalation Q 4-6H PRN 09/27/24 04/12/25 Rx aerosol inhaler shortness of breath or wheez ing #8.5 grams bisoprolol fumarate 5 mg tablet 5 mg PO BID 12/08/24 1 History trazodone 100 mg tablet 100 mg PO HS 12/08/24 History venlafaxine 150 mg 150 mg PO DAILY 12/08/2408/06 History capsule,extended release 24 hr semaglutide 0.25 mg or 0.5 mg (2 0.25 mg (0.368 mL) SQ WEEKLY #3 mL 12/09/24 04/12/25 Rx mg/3 mL) subcutaneous pen injector (Ozempic) omeprazole 40 mg capsule,delayed 40 mg PO BID #90 caps 12/22/24 04/12/25 Rx release cariprazine 3 mg capsule (Vraylar) 3 mg PO DAILY 02/2304/12/25 History nystatin-triamcinolone 100,000 1 applic topical BID 30 days #30 02/24/25 04/12/25 Rx unit/g-0.1 % topical cream grams tamsulosin 0.4 mg capsule (Flomax) 0.4 mg PO DAILY 90 days #90 caps 02/24/25 04/12/25 Rx spironolactone 100 mg tablet 100 mg PO DAILY #30 tabs 02/27/25 04/12/25 Rx (Aldactone) atorvastatin 40 mg tablet 40 mg PO HS #90 tabs 03/20/2 5 04/12/25 Rx Humulin R U-500 (Conc) Kwikpen 500 200 unit (0.4 mL) S Q BID #24 mL 03/21/25 04/12/25 Rx unit/mL (3 mL) subcutaneous (insulin regular hum U-500 conc) blood-glucose sensor (Dexcom G7 #1 ea 03/21/25 5 Rx Sensor device) blood-glucose sensor (Dexcom G7 #3 ea 03/21/25 5 Rx Sensor device) blood-glucose,custom frame assembler,cont #1 ea 03/21/25 04/13/25 Rx (Dexcom G7 Photo Lab Technician) gabapentin 600 mg tablet 600 mg PO TID #90 tabs 03/2804/12/25 Rx hydrocodone 10 mg-acetaminophen 1 tab PO TIDP PRN pain #90 tabs 03/28/25 04/12/25 Rx 325 mg tablet lorazepam 1 mg tablet 1 mg PO DAILYP PRN anxiety # 15 tabs 03/28/25 04/12/25 Rx ondansetron 8 mg disintegrating 8 mg PO Q12H #30 tabs 03/30/25 04/12/25 Rx tablet mupirocin 2 % topical ointment 1 applic topical BID in fection 14 04/05/25 04/12/25 Rx days #22 grams rivaroxaban 20 mg tablet (Xarelto) 20 mg PO QPMWITHMEA L #30 tabs 04/06/25 04/12/25 Rx torsemide 20 mg tablet 40 mg (2 x 20 mg) PO QID 30 days 04/06/25 04/12/25 Rx Held on 04/17/25. #240 tabs Instructions: until cardiology f/u erythromycin-benzoyl peroxide 3 1 applic topical BID 3 0 days #46.6 04/12/25 Rx %-5 % topical gel grams Ertapenem Sodium [Invanz 1gm Vial] 100 mls/hr IV Q24H Infection 04/17/25 Rx 1 gm bumetanide 2 mg tablet 2 mg PO BID #60 tabs 5 Rx insulin glargine 100 unit/mL (3 50 unit (0.5 mL) SQ HS #15 mL 04/17/25 Rx mL) subcutaneous pen (Lantus Solostar U-100 Insulin) New Prescriptions to Start Prescriptions: bumetanide Callie Taylor insulin glargine [Lantus Solostar U-100 Insulin] Callie Taylor Ertapenem Sodium [Invanz 1gm Vial] 1 gm 0.9 % Sodium Chloride [Sod Chlor 0.9% 50mL bag] 50 ml 100 mls/hr IV Q24H Allergies Allergy/AdvReac Type Severity Reaction Status Date / Time vancomycin AdvReac Severe Redness of Verified 04/06/25 10:28 Skin clindamycin AdvReac Mild Nausea Verified 04/06/25 10:28 doxycycline AdvReac Mild Upset Verified 04/06/25 10:28 stomach, heartbur Discharge Plan Disposition Patient Disposition: Home, Self-Care Condition: Fair Discharge Order Discharge Orders: Discharge Order (Routine); Ordered 04/17/25 Ordered By: Callie Taylor Follow up Plan Follow up with: Malcolm Hayward APRN [Primary Care Provider, [facility]] - 04/25/25 9:20 am Tommy Wood II, MD [Staff Physician, Gastroenterology] - 05/03/25 12:00 pm Anette Kendall MD [Staff Physician, Endocrinology] - 06/12/25 10:00 am Estefani Wallis DPM [Staff Physician, Podiatry] - 04/27/25 3:30 pm Pepe Corbin MD [Staff Physician, Cardiology] - 04/26/25 1:30 pm Prescriptions/Medication Reconciliation: New Ertapenem Sodium [Invanz 1gm Vial] 1 GM 0.9 % Sodium Chloride [Sod Chlor 0.9% 50mL bag] 50 ML 100 mls/hr IV Q24H Reason for use: Infection Ordered By: Callie Taylor APRN Last Taken: 04/17/25 05:15 100 mls/hr bumetanide 2 mg tablet 2 mg PO BID Qty: 60 0RF Rx Instructions: take 1 tablet in the morning and 1 tablet at 4 pm insulin glargine [Lantus Solostar U-100 Insulin] 100 unit/mL (3 mL) insulin pen 50 unit SQ HS Qty: 15 0RF Continued (DME) insulin syringe-needle U-100 [BD Insulin Syringe Ultra-Fine] 1 mL 30 gauge x 1/2 syringe See Rx Instructions .ROUTE .MEDSUPPLY Qty: 10 Rx Instructions: As directed (DME) Dexcom G7 Sensor Device See Rx Instructions miscellaneous .MEDSUPPLY Qty: 1 0RF Rx Instructions: As directed (DME) Dexcom G7 Sensor Device See Rx Instructions .MEDSUPPLY Qty: 3 3RF Rx Instructions: Use 1 sensor for every 10 days (DME) Dexcom G7 Photo Lab Technician Misc See Rx Instructions miscellaneous .MEDSUPPLY Qty: 1 0RF Rx Instructions: As directed Humulin R U-500 (Conc) Kwikpen 500 unit/mL (3 mL) insulin pen 200 unit SQ BID Qty: 24 3RF Rx Instructions: Take 200 units twice daily before breakfast and before dinner hydrocodone-acetaminophen 10-325 mg tablet 1 tab PO TIDP PRN (Reason: pain) Qty: 90 0RF gabapentin 600 mg tablet 600 mg PO TID Qty: 90 2RF lorazepam 1 mg tablet 1 mg PO DAILYP PRN (Reason: anxiety) Qty: 15 2RF Rx Instructions: +++Monthly+++ mupirocin 2 % ointment 1 applic topical BID 14 Days Qty: 22 1RF (DME) pen needle, diabetic [Comfort EZ Pen [place]] 32 gauge x 5/32 needle See Rx Instructions .Route Qty: 100 0RF Rx Instructions: As directed diltiazem HCl 120 mg capsule,extended release 24hr 120 mg PO DAILY Qty: 90 3RF albuterol sulfate 90 mcg/actuation HFA aerosol inhaler 2 puff inhalation Q4-6H PRN (Reason: shortness of breath or wheezing) Qty: 8.5 3RF spironolactone [Aldactone] 100 mg tablet 100 mg PO DAILY Qty: 30 2RF Xarelto 20 mg tablet 20 mg PO QPMWITHMEAL Qty: 30 5RF omeprazole 40 mg capsule,delayed release(DR/EC) 40 mg PO BID Qty: 90 0RF tamsulosin [Flomax] 0.4 mg capsule 0.4 mg PO DAILY 90 Days Qty: 90 0RF Rx Instructions: tAKE 1/2 HOUR AFTER SAME MEAL DAILY nystatin-triamcinolone 100,000-0.1 unit/g-% cream 1 applic topical BID 30 Days Qty: 30 0RF atorvastatin 40 mg tablet 40 mg PO HS Qty: 90 1RF ondansetron 8 mg tablet,disintegrating 8 mg PO Q12H Qty: 30 0RF erythromycin-benzoyl peroxide 3-5 % gel 1 applic topical BID 30 Days Qty: 46.6 3RF metformin 1,000 mg tablet 1,000 mg PO BID venlafaxine 150 mg capsule,extended release 24hr 150 mg PO DAILY bisoprolol fumarate 5 mg tablet 5 mg PO BID Patient Comments: TAKE 1 TABLET BY MOUTH TWICE A DAY FOR BLOOD PRESSURE trazodone 100 mg tablet 100 mg PO HS Patient Comments: TAKE 1 TABLET AT BEDTIME Ozempic 0.25 mg or 0.5 mg (2 mg/3 mL) pen injector 0.25 mg SQ WEEKLY Qty: 3 1RF Rx Instructions: for 4 weeks Vraylar 3 mg capsule 3 mg PO DAILY Rx Instructions: TAKE 1 CAPSULE BY MOUTH DAILY Held torsemide 20 mg tablet 40 mg PO QID 30 Days Qty: 240 0RF Hold Instructions: until cardiology f/u Patient Comments: pt states he takes 2 to 3 times a day Discontinued Santyl 250 unit/gram ointment 1 applic topical DAILY PRN (Reason: wound care) Qty: 60 1RF Rx Instructions: Wound size 3.3cm x 3.4cm x 0.1cm= total 58 grams (2 tubes of 30 gram tubes) apply 5.8cm per application to dark eschar tissue daily x 30 days sulfamethoxazole-trimethoprim [Bactrim DS] 800-160 mg tablet 1 tab PO BID 14 Days Qty: 28 0RF cefdinir 300 mg capsule 300 mg PO BID 10 Days Qty: 20 0RF Problem Reconciliation Problems Reviewed?: Yes Patient Discharge Instructions ACTIVITY: Ambulate as tolerated DIET: continue same diet and diabetic diet Patient Instructions: DI for Urinary Tract Infection (UTI), DI for Multiple Drug-resistant Organism (MDRO) Infection, DI for Extended Spectrum Beta- Lactamase Infection, DI for Heart Failure Exacerbations, Catheter-Associated Urinary Tract Infection, Stop Light Heart Failure, Stop Light Infection Print Language: Portuguese Providers Primary Care Provider: Malcolm Hayward Admit Provider: Sebastián Todd Attending Provider: Sebastián Todd
[2025-04-17 09:43] LABS: INR 1.15 (0.9-1.1); Prothrombin Time 12.6 seconds (10.1-12.5)
[2025-04-17] MEDS: BISOPROLOL 5MG TABLET 5 MG PO (09:56)
[2025-04-17] MEDS: INSULIN REGULAR HUM U 200 EACH SUBCUT (09:57)
[2025-04-17] MEDS: BUMETANIDE 1MG/4ML VIAL 2 MG IV (09:58)
[2025-04-17] MEDS: MUPIROCIN 2% OINTMENT 22GM TUBE TP (09:59)
[2025-04-17] MEDS: dilTIAZem ER 120MG CAPSULE 120 MG PO (09:59)
[2025-04-17] MEDS: NYSTATIN TOPICAL POWDER 30GM TP (09:59)
[2025-04-17] MEDS: SPIRONOLACTONE 25MG TABLET 100 MG PO (10:00)
[2025-04-17] MEDS: PANTOPRAZOLE 40MG TABLET 40 MG PO (10:00)
[2025-04-17] MEDS: VENLAFAXINE XR 75MG CAPSULE 150 MG PO (10:00)
[2025-04-17] MEDS: ERYTHROMYCIN BASE 3.5 GM OINT...G. OP (10:10)
[2025-04-17] MEDS: GABAPENTIN 600MG TABLET 600 MG PO (10:13)
[2025-04-17 15:40] LABS: Iron 59 ug/dL (49-181)
[2025-04-17 15:53] LABS: Total Iron Binding Capacity 300 ug/dL (261-462)
[2025-04-17 16:19] LABS: Ferritin 15.6 ng/ml (17.9-464)
--- NOTE | 2025-04-18 10:22 | SW/DCPLANNER ---
Spoke with patient on the phone. Patient stated that he is doing good. Patient stated that he is aware of his upcoming appointments. Patient stated that he was able to pear picker his new medicine from clinic pharmacy. Patient stated that he has no concerns or questions at this time. Luis E Schroeder
== END 2025-04-17 11:30 | disposition home or self-care (01) | DRG 291 ==
LOC: ER 12:23 → 2ND 14:34
PROVIDERS: Podiatrist; Student in an Organized Health Care Education/Training Program; Admitting Provider Internal Medicine Adolescent Medicine; Emergency Provider Student in an Organized Health Care Education/Training Program; PCP Nurse Practitioner Family; Visit Provider Internal Medicine Adolescent Medicine
DX: I11.0 Hypertensive heart disease with heart failure (principal); I50.33 Acute on chronic diastolic (congestive) heart failure; N39.0 Urinary tract infection, site not specified; Z16.12 Extended spectrum beta lactamase (ESBL) resistance; Z68.45 Body mass index [BMI] 70 or greater, adult; R33.8 Other retention of urine; I48.0 Paroxysmal atrial fibrillation; S80.822A Blister (nonthermal), left lower leg, initial encounter; E11.621 Type 2 diabetes mellitus with foot ulcer; L97.512 Non-pressure chronic ulcer of other part of right foot with fat layer exposed; E83.42 Hypomagnesemia; N40.1 Benign prostatic hyperplasia with lower urinary tract symptoms; F32.A Depression, unspecified; F41.9 Anxiety disorder, unspecified; J44.9 Chronic obstructive pulmonary disease, unspecified; E66.01 Morbid (severe) obesity due to excess calories; G47.33 Obstructive sleep apnea (adult) (pediatric); L97.529 Non-pressure chronic ulcer of other part of left foot with unspecified severity; L85.3 Xerosis cutis; K74.60 Unspecified cirrhosis of liver; E87.6 Hypokalemia; G47.00 Insomnia, unspecified; K21.9 Gastro-esophageal reflux disease without esophagitis; G89.29 Other chronic pain; B96.29 Other Escherichia coli [E. coli] as the cause of diseases classified elsewhere; X58.XXXA Exposure to other specified factors, initial encounter; Z79.4 Long term (current) use of insulin; Z79.84 Long term (current) use of oral hypoglycemic drugs; Z79.01 Long term (current) use of anticoagulants; Z79.899 Other long term (current) drug therapy; Z88.1 Allergy status to other antibiotic agents; Z79.85 Long-term (current) use of injectable non-insulin antidiabetic drugs; Z87.891 Personal history of nicotine dependence
CPT/HCPCS: 36415; 71045; 80048; 80053; 82728; 82962; 83036; 83540; 83550; 83735; 83880; 84443; 84484; 85025; 85610; 86803; 87040; 87389; 93005; 99285; J1335; J1939; J2185; J3475

== ENCOUNTER 2025-04-18 13:05 | Outpatient (CLI) | payer MEDICARE, BC, SELFPAY ==
--- OUTSIDE RECORDS SUMMARY | 2025-04-18 13:10 | XMS_ITS | Referral Summary ---
Author Organization [employer] ([place], [place], [place], [place]) Address [address] [place] [address] Care Team Providers Care Vascular Physician Name Role Phone Malcolm Hayward APRN Primary Care Provider [phone] Allergies No known active allergies Medications atorvastatin [...] A B BLUE CROSS/BLUE SHIELD Care Teams Vascular Physician Relationship Specialty Start Date End Date Malcolm Hayward, ADALGISA [address] [place] [address] PCP - General Nurse Practitioner 12/20/24
--- OUTSIDE RECORDS SUMMARY | 2025-04-18 13:10 | XMS_ITS | Clinical Summary ---
Author Organization [employer] ([place], [place], [place], [place]) Address [address] [place] [address] Care Team Providers Care Office Manager Executive Assistant Name Role Phone Malcolm Hayward APRN Primary Care Provider [phone] Allergies No known active allergies Medications atorvastatin [...] 04/26/2020, 12/24/2016 Insurance MEDICARE PART A B /[facility] Care Teams Office Manager Executive Assistant Relationship Specialty Start Date End Date Malcolm Hayward APRN [address] [place] [address] PCP - General Nurse Practitioner 12/20/24
--- OUTSIDE RECORDS SUMMARY | 2025-04-18 13:10 | XMS_ITS | Encounter Summary ---
Author Organization Healthcare Address [address] [id number] Care Team Providers Care Fisher Oyster Name Role Phone Malcolm Hayward ADALGISA Primary Care Provider [phone] Reason for Visit * Reason Onset Date Comments Med Refill 02/27/2025 Encounter Details Date Type Department Care Team (Late st Contact Info) Description 02/27/2025 Refill [place] Endocrinology [address] [place] [address] Iveth Hurd Social History Tobacco [...] documented as of this encounter Care Teams Fisher Oyster Relationship Specialty Start Date End Date Malcolm Hayward APRN [address] [place] [address] [place] [address] PCP - General 09/21/23 documented as of this encounter
--- OUTSIDE RECORDS SUMMARY | 2025-04-18 13:10 | XMS_ITS | Encounter Summary ---
Author Organization Healthcare Address [address] [id number] Care Team Providers Care Lettuce Trimmer Name Role Phone Malcolm Hayward INSEMINATION WORKER Primary Care Provider [phone] Encounter Details Date Type Department Care Team (Late st Contact Info) Description 02/27/2025 [facility] [address] [place] [address] Divine Archer, INSEMINATION WORKER [address] [facility] [address] [place] [address] Social History Tobacco Use Types [...] any time in the past 12 m [facility], were you homeless or living in a prison (including now)? No 12/16/2024 Utilities Answer Date [...] documented as of this encounter Care Teams Lettuce Trimmer Relationship Specialty Start Date End Date Malcolm Hayward APRN [address] [place] [address] PCP - General 09/21/23 documented as of this encounter
--- OUTSIDE RECORDS SUMMARY | 2025-04-18 13:10 | XMS_ITS | Encounter Summary ---
Author Organization [facility] Address [address] [id number] Care Team Providers Care Roading Engineer Name Role Phone Malcolm Hayward GAS STATION SERVICE ATTENDANT Primary Care Provider [phone] Reason for Visit * Reason Comments Med Refill Encounter Details Date Type Department Care Team (Late st Contact Info) Description 12/02/2024 Refill [facility] Endocrinology [address] [place] [address] Divine Archer, GAS STATION SERVICE ATTENDANT 2[address] [facility] [address] [place] [address] Social History Tobacco Use Types [...] documented as of this encounter Care Teams Roading Engineer Relationship Specialty Start Date End Date Malcolm Hayward APRN [address] [place] [address] PCP - General 09/21/23 documented as of this encounter
--- OUTSIDE RECORDS SUMMARY | 2025-04-18 13:10 | XMS_ITS | Clinical Summary ---
Author Organization [facility] Address [address] [place] [address] Care Team Providers Care Gum Remover Name Role Phone Provider, No Known Primary [...] patient's age to complete this topic Insurance [facility] PPO Care Teams Gum Remover Relationship Specialty Start Date End Date Provider, No Known [facility] [place] [address] PCP - General 02/11/21
--- OUTSIDE RECORDS SUMMARY | 2025-04-18 13:10 | XMS_ITS | Encounter Summary ---
Author Organization Healthcare Address [address] [id number] Care Team Providers Care Brass Cleaner Name Role Phone Malcolm Hayward MANAGEMENT TRAINER Primary Care Provider [phone] Reason for Visit * Reason Comments Med Refill Encounter Details Date Type Department Care Team (Late st Contact Info) Description 07/07/2024 Refill [facility] Endocrinology [address] [place] [address] Mayra Torres PA [address] [address] Type 2 diabetes mellitus (CMS/HCC) [...] as of this encounter Care Teams Brass Cleaner Relationship Specialty Start Date End Date Malcolm Hayward APRN [address] [place] [address] PCP - General 09/21/23 documented as of this encounter
--- OUTSIDE RECORDS SUMMARY | 2025-04-18 13:10 | XMS_ITS | Encounter Summary ---
Author Organization Healthcare Address [address] [id number] Care Team Providers Care Farm Instructor Name Role Phone Malcolm Hayward ADALGISA Primary Care Provider [phone] Reason for Visit * Reason Onset Date Comments Med Refill 02/21/2025 Encounter Details Date Type Department Care Team (Late st Contact Info) Description 02/21/2025 Refill [place] [facility] Endocrinology [address] [place] [address] Pratibha Forde, PA 2195 [facility] [address] [place] [address] Social History Tobacco Use Types [...] any time in the past 12 m [facility], were you homeless or living in a intermediate (including now)? No 12/16/2024 Utilities Answer Date [...] documented as of this encounter Care Teams Farm Instructor Relationship Specialty Start Date End Date Malcolm Hayward APRN [address] [place] [address] PCP - General 09/21/23 documented as of this encounter
--- OUTSIDE RECORDS SUMMARY | 2025-04-18 13:10 | XMS_ITS | Encounter Summary ---
Author Organization Healthcare Address [address] [id number] Care Team Providers Care Polls Or Surveys Interviewer Name Role Phone Malcolm Hayward ZOOLOGY TECHNICAL OFFICER Primary Care Provider [phone] Reason for Visit * Reason Comments Med Refill Encounter Details Date Type Department Care Team (Late st Contact Info) Description 12/31/2023 Refill [place] [facility] Endocrinology [address] [place] [address] Earline Loaiza, ZOOLOGY TECHNICAL OFFICER 2195 [facility] 125 [place] [address] Type 2 diabetes mellitus (CMS/HCC) [...] documented as of this encounter Care Teams Polls Or Surveys Interviewer Relationship Specialty Start Date End Date Malcolm Hayward APRN [address] [place] [address] PCP - General 09/21/23 documented as of this encounter
--- OUTSIDE RECORDS SUMMARY | 2025-04-18 13:10 | XMS_ITS | Clinical Summary ---
Author Organization [facility] Address [address] [place] [address] Care Team Providers Care Physician Recruiter Name Role Phone Malcolm Hayward ADALGISA Primary Care Provider [phone] Allergies No known active allergies Medications atorvastatin [...] 30 packet 12/18/19 25 Active HYDROcodone-acetam inophen ([place]) 10-325 MG tablet Take 1 tablet by [...] 02/23/20 25 Active Insulin Pen Needle (Pen [place]) 31G X 5 MM [facility] USE TO INJECT INSULIN 3 TIMES PER [...] Department Care Team Description 02/27/2025 Refill [facility] Endocrinology [address] [place] [address] Iveth Hurd 02/27/2025 Telephone [facility] Endocrinology [address] [place] [address] Divine Archer, ADALGISA 02/21/2025 Refill [facility] Endocrinology [address] [place] [address] Pratibha Forde PA from Last 3 Months [...] any time in the past 12 m [facility], were you homeless or living [...] 2022 Sigmoidoscopy 2022 [facility]-Colorectal Cancer Screening 2022 [id number] Vaccine ( season) 2025 02/22/2021, 01/25/2021 [facility]-Diabetes: [...] 10.9(H) <5.7 % 12/13/2024 11:55 AM EDT [facility] Blood Venous blood specimen / Unknown Venipuncture / Unknown 12/12/2024 11:46 PM EDT 12/13/2024 12:06 AM EDT Narrative [facility] - 12/13/2024 11:55 AM EDT HA1C Interpretive Data: Diagnosis of Diabetes: Diabetic > or = 6.5% Pre-diabetic 5.7 to 6.4% Non-diabetic < or = 5.6% Glycemic Targets for Type I and Type II Diabetics: Non- Adults <7.0% Adults <6.0% Children and Adolescents <7.5% Source: [place] [employer]. Standards of medical care in diabetes,2017. Diabetes Care.2017:40 (suppl 1):S1-S135. Nicole Casas MD LAB BLOOD ORDERABLES Melba don Result [facility] [address] [place] [address] from Last 3 Months or Most Recently Relevant to Health Maintenance Insurance [facility] MEDICARE Advance Directives * Full Code (Latest Code Status on File) Date Activated Date Inactivated Comments 12/12/2024 11:07 PM 12/17/2024 3:22 PM Question Answer Comments I have reviewed the capacity from the link above and, if needed, have updated to appropriate status: Yes Care Teams Physician Recruiter Relationship Specialty Start Date End Date Malcolm Hayward APRN [address] [facility] [place] [address] PCP - General 09/21/23
[2025-04-18] MEDS: ERTAPENEM SODIUM 1 GM in 0.9 % SODIUM CHLORIDE 50 ML IV (13:16)
[2025-04-18] MEDS: 0.9 % SODIUM CHLORIDE 50 ML IV (13:42)
[2025-04-18 13:44] VITALS: BP 129/68; PULSE 69; RESP 20; TEMP 36.7; O2SAT 99
[2025-04-18 13:56] VITALS: BP 130/64; PULSE 66; RESP 20; O2SAT 99
== END 2025-04-18 13:59 | disposition home or self-care (01) ==
LOC: INF 13:06
PROVIDERS: PCP Nurse Practitioner Family
DX: N39.0 Urinary tract infection, site not specified (principal); Z16.12 Extended spectrum beta lactamase (ESBL) resistance
CPT/HCPCS: 96365; J1335

== ENCOUNTER 2025-04-24 10:52 | Outpatient (CLI) | payer MEDICARE, BC, SELFPAY ==
--- OUTSIDE RECORDS SUMMARY | 2025-04-24 10:58 | XMS_ITS | Encounter Summary ---
Author Organization Healthcare Address [address] [id number] Care Team Providers Care Concrete Products Dispatcher Name Role Phone Malcolm Hayward CATCH BASIN CLEANER Primary Care Provider [phone] Reason for Visit * Reason Comments Med Refill Encounter Details Date Type Department Care Team (Late st Contact Info) Description 07/07/2024 Refill [place] [facility] Endocrinology [address] [place] [address] Mayra Torres PA [address] [address] Type 2 diabetes mellitus (CMS/HCC) [...] documented as of this encounter Care Teams Concrete Products Dispatcher Relationship Specialty Start Date End Date Malcolm Hayward APRN [address] [place] [address] PCP - General 09/21/23 documented as of this encounter
--- OUTSIDE RECORDS SUMMARY | 2025-04-24 10:58 | XMS_ITS | Referral Summary ---
Author Organization [employer] ([place], [place], [place], [place]) Address [address] [place] [address] Care Team Providers Care Early Interventionist Name Role Phone Malcolm Hayward APRN Primary Care Provider [phone] Allergies No known active allergies Medications atorvastatin [...] A B BLUE CROSS/BLUE SHIELD Care Teams Early Interventionist Relationship Specialty Start Date End Date Malcolm Hayward, ADALGISA [address] [place] [address] PCP - General Nurse Practitioner 12/20/24
--- OUTSIDE RECORDS SUMMARY | 2025-04-24 10:58 | XMS_ITS | Clinical Summary ---
Author Organization [facility] ([place], [place], [place], [place]) Address [address] [place] [address] Care Team Providers Care Master Printer Name Role Phone Malcolm Hayward APRN Primary Care Provider [phone] Allergies No known active allergies Medications atorvastatin [...] 04/26/2020, 12/24/2016 Insurance MEDICARE PART A B /[facility] Care Teams Master Printer Relationship Specialty Start Date End Date Malcolm Hayward APRN [address] [place] [address] PCP - General Nurse Practitioner 12/20/24
--- OUTSIDE RECORDS SUMMARY | 2025-04-24 10:58 | XMS_ITS | Encounter Summary ---
Author Organization Healthcare Address [address] [id number] Care Team Providers Care Parish Nurse Name Role Phone Malcolm Hayward BAKING ASSISTANT Primary Care Provider [phone] Encounter Details Date Type Department Care Team (Late st Contact Info) Description 02/27/[facility] [address] [place] [address] Divine Archer, BAKING ASSISTANT 2195 [facility] 125 [place] [address] Social History Tobacco Use Types [...] were you homeless or living in a halfway (including now)? No 12/16/2024 Utilities Answer Date [...] documented as of this encounter Care Teams Parish Nurse Relationship Specialty Start Date End Date Malcolm Hayward APRN [address] [place] [address] PCP - General 09/21/23 documented as of this encounter
--- OUTSIDE RECORDS SUMMARY | 2025-04-24 10:58 | XMS_ITS | Encounter Summary ---
Author Organization [facility] Address [address] [id number] Care Team Providers Care Service Consultant Name Role Phone Malcolm Hayward ADALGISA Primary Care Provider [phone] Reason for Visit * Reason Onset Date Comments Med Refill 02/27/2025 Encounter Details Date Type Department Care Team (Late st Contact Info) Description 02/27/2025 Refill [facility] Endocrinology [address] [place] [address] Iveth Hurd Social History Tobacco [...] as of this encounter Care Teams Service Consultant Relationship Specialty Start Date End Date Malcolm Hayward APRN [address] [place] [address] [place] [address] PCP - General 09/21/23 documented as of this encounter
--- OUTSIDE RECORDS SUMMARY | 2025-04-24 10:58 | XMS_ITS | Encounter Summary ---
Author Organization [facility] Address [address] [id number] Care Team Providers Care Metal Pattern Maker Name Role Phone Malcolm Hayward LOCKSTITCH LINING MAKER Primary Care Provider [phone] Reason for Visit * Reason Comments Med Refill Encounter Details Date Type Department Care Team (Late st Contact Info) Description 12/02/2024 Refill [facility] [facility] Endocrinology [address] [place] [address] Divine Archer, LOCKSTITCH LINING MAKER 2[address] [facility] [address] [place] [address] Social History Tobacco Use Types [...] documented as of this encounter Care Teams Metal Pattern Maker Relationship Specialty Start Date End Date Malcolm Hayward APRN [address] [place] [address] PCP - General 09/21/23 documented as of this encounter
--- OUTSIDE RECORDS SUMMARY | 2025-04-24 10:58 | XMS_ITS | Encounter Summary ---
Author Organization [facility] Address [address] [id number] Care Team Providers Care Production Wood Craftsman Name Role Phone Malcolm Hayward TOY DEPARTMENT MANAGER Primary Care Provider [phone] Reason for Visit * Reason Comments Med Refill Encounter Details Date Type Department Care Team (Late st Contact Info) Description 04/19/2025 Refill [place] [facility] Endocrinology [address] [place] [address] Divine Archer, TOY DEPARTMENT MANAGER 2[address] [facility] [address] [place] [address] Type 2 diabetes mellitus Social History Tobacco Use Types Packs/Day Years [...] any time in the past 12 m [facility], were you homeless or living in a alf (including now)? No 12/16/2024 Utilities Answer Date [...] encounter Miscellaneous Notes * Telephone Encounter - Sylwia Cleaning PharmD - 04/19/2025 9:53 AM EDT Refill request does not meet [...] as of this encounter Care Teams Production Wood Craftsman Relationship Specialty Start Date End Date Malcolm Hayward APRN [address] [place] [address] PCP - General 09/21/23 documented as of this encounter
--- OUTSIDE RECORDS SUMMARY | 2025-04-24 10:58 | XMS_ITS | Clinical Summary ---
Author Organization [facility] Address [address] [place] [address] Care Team Providers Care Personnel Quality Assurance Auditor Name Role Phone Malcolm Hayward ADALGISA Primary Care Provider [phone] Allergies No known active allergies Medications atorvastatin [...] 6 hours as needed for pain. Under [place] law, monthly prescriptions (30 days) can be refilled at 25 days and three-month prescriptions (90 days) at 80 days. Please contact the insurance company with questions if refills are denied. 100 tablet 12/18/19 25 Active polyethylene glycol (Miralax) 17 g packet Take 17 g by mouth daily. 30 packet 12/18/19 25 Active HYDROcodone-acetam inophen ([place]) 10-325 MG tablet Take 1 tablet by [...] 02/23/20 25 Active Insulin Pen Needle (Pen [place]) 31G X 5 MM [facility] USE TO INJECT [...] Encounters Date Type Department Care Team Description 04/19/2025 Refill [facility] [facility] Endocrinology [address] [address] Divine Archer, SUPPLY CHAIN PLANNER Type 2 diabetes mellitus 02/27/2025 Refill [facility] [facility] [facility] Endocrinology [address] [place] [address] Iveth Hurd 02/27/2025 Telephone [facility] [facility] Endocrinology [address] [place] [address] Divine Archer APRN 02/21/2025 Refill [place] [facility] [facility] Endocrinology [address] [place] [address] Pratibha Forde PA from Last 3 Months [...] any time in the past 12 m [facility], were you homeless or living in a [place] [facility] (including now)? No 12/16/2024 Utilities Answer Date Recorded In the past 12 months has e electric, gas, oil, or water company [...] 2022 Sigmoidoscopy 2022 [facility]-Colorectal Cancer Screening 2022 [id number] Vaccine ( - season) 2025 02/22/2021, 01/25/2021 [facility]-Diabetes: Hemoglobin A1C [...] 10.9(H) <5.7 % 12/13/2024 11:55 AM EDT [facility] Blood Venous blood specimen / Unknown Venipuncture / Unknown 12/12/2024 11:46 PM EDT 12/13/2024 12:06 AM EDT Narrative [facility] - 12/13/2024 11:55 AM [...] MD LAB BLOOD ORDERABLES Melba don Result [facility] [address] [place] [address] from Last 3 Months or Most Recently Relevant to Health Maintenance Insurance [facility] MEDIC[facility] Advance Directives * Full Code (Latest Code Status on File) Date Activated Date Inactivated Comments 12/12/2024 11:07 PM 12/17/2024 3:22 PM Question Answer Comments I have reviewed the capacity from the link above and, if needed, have updated to appropriate status: Yes Care Teams Personnel Quality Assurance Auditor Relationship Specialty Start Date End Date Malcolm Hayward APRN [address] [place] [address] [place] [address] PCP - General 09/21/23
--- OUTSIDE RECORDS SUMMARY | 2025-04-24 10:58 | XMS_ITS | Encounter Summary ---
Author Organization [facility] Address [address] [id number] Care Team Providers Care Talent Acquisition Associate Name Role Phone Malcolm Hayward REGISTERED PRIVATE DUTY NURSE Primary Care Provider [phone] Reason for Visit * Reason Comments Med Refill Encounter Details Date Type Department Care Team (Late st Contact Info) Description 12/31/2023 Refill [place] [facility] Endocrinology [address] [place] [address] Earline Loaiza, REGISTERED PRIVATE DUTY NURSE 2195 [facility] [address] [place] [address] Type 2 diabetes mellitus (CMS/HCC) [...] documented as of this encounter Care Teams Talent Acquisition Associate Relationship Specialty Start Date End Date Malcolm Hayward APRN [address] [place] [address] PCP - General 09/21/23 documented as of this encounter
--- OUTSIDE RECORDS SUMMARY | 2025-04-24 10:58 | XMS_ITS | Clinical Summary ---
Author Organization [facility] Address [address] [place] [address] Care Team Providers Care De Icer Finisher Name Role Phone Provider, No Known Primary [...] patient's age to complete this topic Insurance [facility] PPO Care Teams De Icer Finisher Relationship Specialty Start Date End Date Provider, No Known [facility] [place] [address] PCP - General 02/11/21
[2025-04-24 11:42] LABS: Hemoglobin A1C 8.4 % (4.0-6.0)
[2025-04-24 13:20] LABS: Chloride 90 mmol/L (98-107); Sodium 135 mmol/L (136-145)
[2025-04-24 13:21] LABS: Potassium 3.3 mmoL/L (3.5-5.1)
[2025-04-24 13:23] LABS: Blood Urea Nitrogen 9 mg/dl (9-20); Creatinine,Serum 0.70 mg/dl (0.66-1.25); Estimated Glomerular Filt Rate 121 ml/min (>60); GFR (African American) 146 ML/MIN (>60)
[2025-04-24 13:24] LABS: Anion Gap 14.3 mEq/L (5-15); Calcium 8.4 mg/dl (8.4-10.2); Carbon Dioxide 34 mmol/L (22.0-30.0); Glucose 146 mg/dl (74-100); Magnesium 1.6 mg/dl (1.6-2.3)
[2025-04-24 13:32] LABS: NT Pro Brain Natriuretic Pep. 78.3 pg/mL (0-125)
== END 2025-04-24 23:59 | disposition home or self-care (01) ==
LOC: LAB 15:35
PROVIDERS: Student in an Organized Health Care Education/Training Program; PCP Nurse Practitioner Family; Visit Provider Physician Assistant
DX: I50.30 Unspecified diastolic (congestive) heart failure (principal); E11.65 Type 2 diabetes mellitus with hyperglycemia; R60.1 Generalized edema
CPT/HCPCS: 36415; 80048; 83036; 83735; 83880

== ENCOUNTER 2025-04-25 10:32 | Emergency (ER) | payer MEDICARE, BC, SELFPAY ==
[2025-04-25] VITALS (9 sets, daily range): BP systolic 140–178; BP diastolic 67–129; PULSE 76–80; RESP 18; TEMP 36.7–36.9; O2SAT 92–98; BMI 77.3
--- OUTSIDE RECORDS SUMMARY | 2025-04-25 10:45 | XMS_ITS | Encounter Summary ---
Author Organization Healthcare Address [address] [id number] Care Team Providers Care Car Blocker Name Role Phone Malcolm Hayward ONLINE PRODUCER Primary Care Provider [phone] Reason for Visit * Reason Comments Med Refill Encounter Details Date Type Department Care Team (Late st Contact Info) Description 07/07/2024 Refill [facility] [facility] Endocrinology [address] [place] [address] Mayra Torres PA [address] [address] Type 2 diabetes mellitus (CMS/HCC) [...] documented as of this encounter Care Teams Car Blocker Relationship Specialty Start Date End Date Malcolm Hayward APRN [address] [place] [address] PCP - General 09/21/23 documented as of this encounter
--- OUTSIDE RECORDS SUMMARY | 2025-04-25 10:45 | XMS_ITS | Encounter Summary ---
Author Organization [facility] Address [address] [id number] Care Team Providers Care Switch Technician Name Role Phone Malcolm Hayward STAND IN Primary Care Provider [phone] Reason for Visit * Reason Comments Med Refill Encounter Details Date Type Department Care Team (Late st Contact Info) Description 04/19/2025 Refill [place] [facility] Endocrinology [address] [place] [address] Divine Archer, STAND IN 2195 [facility] [address] [place] [address] Type 2 diabetes mellitus Social [...] documented as of this encounter Care Teams Switch Technician Relationship Specialty Start Date End Date Malcolm Hayward APRN [address] [place] [address] PCP - General 09/21/23 documented as of this encounter
--- OUTSIDE RECORDS SUMMARY | 2025-04-25 10:45 | XMS_ITS | Referral Summary ---
Author Organization [employer] ([place], [place], [place], [place]) Address [address] [place] [address] Care Team Providers Care Metal Model Builder Name Role Phone Malcolm Hayward APRN Primary Care Provider [phone] Allergies No known active allergies Medications atorvastatin [...] A B BLUE CROSS/BLUE SHIELD Care Teams Metal Model Builder Relationship Specialty Start Date End Date Malcolm Hayward, ADALGISA [address] [place] [address] PCP - General Nurse Practitioner 12/20/24
--- OUTSIDE RECORDS SUMMARY | 2025-04-25 10:46 | XMS_ITS | Clinical Summary ---
[facility] Address [address] [place] [address] Care Team Providers Care Radio Engineering Teacher Name Role Phone Provider, No Known Primary [...] patient's age to complete this topic Insurance [facility] PPO Care Teams Radio Engineering Teacher Relationship Specialty Start Date End Date Provider, No Known [facility] [place] [address] PCP - General 02/11/21
--- OUTSIDE RECORDS SUMMARY | 2025-04-25 10:46 | XMS_ITS | Encounter Summary ---
Author Organization [facility] Address [address] [id number] Care Team Providers Care Radiologic Technologist Chief Name Role Phone Malcolm Hayward WELLNESS PROGRAM MANAGER Primary Care Provider [phone] Encounter Details Date Type Department Care Team (Late st Contact Info) Description 02/27/2025 [facility] [address] [place] [address] Divine Archer, WELLNESS PROGRAM MANAGER 2195 [facility] 125 [place] [address] Social History Tobacco Use Types [...] time in the past 12 m [facility], were you homeless or living in [...] documented as of this encounter Care Teams Radiologic Technologist Chief Relationship Specialty Start Date End Date Malcolm Hayward APRN [address] [place] [address] PCP - General 09/21/23 documented as of this encounter
--- OUTSIDE RECORDS SUMMARY | 2025-04-25 10:46 | XMS_ITS | Encounter Summary ---
Author Organization [facility] Address [address] [phone] Care Team Providers Care Consulting Group Analyst Name Role Phone Malcolm Hayward LAUNDRY CLERK Primary Care Provider [phone] Reason for Visit * Reason Comments Med Refill Encounter Details Date Type Department Care Team (Late st Contact Info) Description 12/02/2024 Refill [facility] [facility] Endocrinology [address] [place] [address] Divine Archer, LAUNDRY CLERK 2195 [facility] [address] [place] [address] Social History Tobacco Use Types [...] documented as of this encounter Care Teams Consulting Group Analyst Relationship Specialty Start Date End Date Malcolm Hayward APRN [address] [place] [address] PCP - General 09/21/23 documented as of this encounter
--- OUTSIDE RECORDS SUMMARY | 2025-04-25 10:46 | XMS_ITS | Clinical Summary ---
Author Organization [facility] Address [address] [place] [address] Care Team Providers Care Broadcast Chief Engineer Name Role Phone Malcolm Hayward ADALGISA Primary [...] 30 packet 12/18/19 25 Active HYDROcodone-acetam inophen ([place]) 10-325 MG tablet Take 1 tablet by [...] 02/23/20 25 Active Insulin Pen Needle (Pen [place]) 31G X 5 MM [facility] [place] TO INJECT INSULIN 3 TIMES PER [...] Department Care Team Description 04/19/2025 Refill [facility] Endocrinology [address] [id number] Divine Archer, FRONT DESK ADMIN Type 2 diabetes mellitus 02/27/2025 Refill [facility] Endocrinology [address] [place] [address] Iveth Hurd 02/27/2025 Telephone [facility] Endocrinology [address] [place] [address] Divine Archer APRN 02/21/2025 Refill [facility] Endocrinology [address] [place] [address] Pratibha Forde PA from Last 3 Months [...] time in the past [address] [facility], were you homeless or living [...] 2022 Sigmoidoscopy 2022 [facility]-Colorectal Cancer Screening 2022 [id number] Vaccine ( - season) 2025 02/22/2021, 01/25/2021 [...] 10.9(H) <5.7 % 12/13/2024 11:55 AM EDT [facility] Blood Venous blood specimen / Unknown Venipuncture / Unknown 12/12/2024 11:46 PM EDT 12/13/2024 12:06 AM EDT Narrative [facility] - 12/13/2024 11:55 AM EDT [facility] Interpretive Data: Diagnosis of Diabetes: Diabetic > or = 6.5% Pre-diabetic 5.7 to 6.4% Non-diabetic < or = 5.6% Glycemic Targets for Type I and Type II Diabetics: Non- Adults <7.0% Adults <6.0% Children and Adolescents <7.5% Source: [place] [employer]. Standards of medical care in diabetes,2017. Diabetes Care.2017:40 (suppl 1):S1-S135. Nicole Casas MD LAB BLOOD ORDERABLES Melba don Result [facility] [address] [place] [address] from Last 3 Months or Most Recently Relevant to Health Maintenance Insurance REPLACED BY [facility] MEDICARE Advance Directives * Full Code (Latest Code Status on File) Date Activated Date Inactivated Comments 12/12/2024 11:07 PM 12/17/2024 3:22 PM Question Answer Comments I have reviewed the capacity from the link above and, if needed, have updated to appropriate status: Yes Care Teams Broadcast Chief Engineer Relationship Specialty Start Date End Date Malcolm Hayward APRN [address] [place] [address] [place] [id number] PCP - General 09/21/23
--- OUTSIDE RECORDS SUMMARY | 2025-04-25 10:46 | XMS_ITS | Encounter Summary ---
Author Organization Healthcare Address [address] [id number] Care Team Providers Care Public Address Servicer Name Role Phone Malcolm Hayward ADALGISA Primary Care Provider [phone] Reason for Visit * Reason Onset Date Comments Med Refill 02/27/2025 Encounter Details Date Type Department Care Team (Late st Contact Info) Description 02/27/2025 Refill [facility] Endocrinology [address] [place] [address] Iveth Hurd Social History Tobacco [...] documented as of this encounter Care Teams Public Address Servicer Relationship Specialty Start Date End Date Malcolm Hayward APRN [address] [place] [address] [place] [address] PCP - General 09/21/23 documented as of this encounter
--- OUTSIDE RECORDS SUMMARY | 2025-04-25 10:46 | XMS_ITS | Encounter Summary ---
Author Organization Healthcare Address [address] [id number] Care Team Providers Care Mail Forwarding System Markup Clerk Name Role Phone Malcolm Hayward RACE STARTER Primary Care Provider [phone] Reason for Visit * Reason Comments Med Refill Encounter Details Date Type Department Care Team (Late st Contact Info) Description 12/31/2023 Refill [facility] Endocrinology [address] [place] [address] Earline Loaiza, RACE STARTER [address] [facility] [address] [place] [address] Type 2 diabetes mellitus (CMS/HCC) [...] documented as of this encounter Care Teams Mail Forwarding System Markup Clerk Relationship Specialty Start Date End Date Malcolm Hayward APRN [address] [place] [id number] PCP - General 09/21/23 documented as of this encounter
--- OUTSIDE RECORDS SUMMARY | 2025-04-25 10:46 | XMS_ITS | Clinical Summary ---
Author Organization [employer] ([place], [place], [place], [place]) Address [address] [place] [address] Care Team Providers Care Solar Installation Supervisor Name Role Phone Malcolm Hayward APRN Primary Care Provider [phone] Allergies No known active allergies Medications atorvastatin [...] Insurance MEDICARE PART A B /[facility] Care Teams Solar Installation Supervisor Relationship Specialty Start Date End Date Malcolm Hayward APRN [address] [place] [address] PCP - General Nurse Practitioner 12/20/24
--- NOTE | 2025-04-25 11:09 | ED_ITS ---
Discharge Plan Disposition Patient Disposition: Home, Self-Care Condition: Good Prescriptions Prescriptions: No Action (DME) insulin syringe-needle U-100 [BD Insulin Syringe Ultra-Fine] 1 mL 30 gauge x 1/2 syringe See Rx Instructions .ROUTE .MEDSUPPLY Qty: 10 Rx Instructions: As directed (DME) Dexcom G7 Sensor Device See Rx Instructions miscellaneous .MEDSUPPLY Qty: 1 0RF Rx Instructions: As directed (DME) Dexcom G7 Sensor Device See Rx Instructions .MEDSUPPLY Qty: 3 3RF Rx Instructions: Use 1 sensor for every 10 days (DME) Dexcom G7 Aircraft Maintenance Instructor Misc See Rx Instructions miscellaneous .MEDSUPPLY Qty: 1 0RF Rx Instructions: As directed hydrocodone-acetaminophen 10-325 mg tablet 1 tab PO TIDP PRN (Reason: pain) Qty: 90 0RF gabapentin 600 mg tablet 600 mg PO TID Qty: 90 2RF lorazepam 1 mg tablet 1 mg PO DAILYP PRN (Reason: anxiety) Qty: 15 2RF Rx Instructions: +++Monthly+++ mupirocin 2 % ointment 1 applic topical BID 14 Days Qty: 22 1RF (DME) pen needle, diabetic [Comfort EZ Pen Connell] 32 gauge x 5/32 needle See Rx Instructions .Route Qty: 100 0RF Rx Instructions: As directed diltiazem HCl 120 mg capsule,extended release 24hr 120 mg PO DAILY Qty: 90 3RF albuterol sulfate 90 mcg/actuation HFA aerosol inhaler 2 puff inhalation Q4-6H PRN (Reason: shortness of breath or wheezing) Qty: 8.5 3RF spironolactone [Aldactone] 100 mg tablet 100 mg PO DAILY Qty: 30 2RF torsemide 20 mg tablet 40 mg PO QID 30 Days Qty: 240 0RF Patient Comments: pt states he takes 2 to 3 times a day Xarelto 20 mg tablet 20 mg PO QPMWITHMEAL Qty: 30 5RF omeprazole 40 mg capsule,delayed release(DR/EC) 40 mg PO BID Qty: 90 0RF tamsulosin [Flomax] 0.4 mg capsule 0.4 mg PO DAILY 90 Days Qty: 90 0RF Rx Instructions: tAKE 1/2 HOUR AFTER SAME MEAL DAILY nystatin-triamcinolone 100,000-0.1 unit/g-% cream 1 applic topical BID 30 Days Qty: 30 0RF atorvastatin 40 mg tablet 40 mg PO HS Qty: 90 1RF ondansetron 8 mg tablet,disintegrating 8 mg PO Q12H Qty: 30 0RF erythromycin-benzoyl peroxide 3-5 % gel 1 applic topical BID 30 Days Qty: 46.6 3RF metformin 1,000 mg tablet 1,000 mg PO BID Qty: 60 5RF Humulin R U-500 (Conc) Kwikpen 500 unit/mL (3 mL) insulin pen 225 unit SQ BID Qty: 24 3RF Rx Instructions: Take 225 units twice daily before breakfast and before dinner bumetanide 2 mg tablet 4 mg PO TID 30 Days Qty: 180 0RF venlafaxine 150 mg capsule,extended release 24hr 150 mg PO DAILY bisoprolol fumarate 5 mg tablet 5 mg PO BID Patient Comments: TAKE 1 TABLET BY MOUTH TWICE A DAY FOR BLOOD PRESSURE trazodone 100 mg tablet 100 mg PO HS Patient Comments: TAKE 1 TABLET AT BEDTIME Ozempic 0.25 mg or 0.5 mg (2 mg/3 mL) pen injector 0.25 mg SQ WEEKLY Qty: 3 1RF Rx Instructions: for 4 weeks Vraylar 3 mg capsule 3 mg PO DAILY Rx Instructions: TAKE 1 CAPSULE BY MOUTH DAILY Referrals Follow up/Referrals: Malcolm Hayward APRN [Primary Care Provider, Family Practice] - See instructions Activity Restrictions/Add. Instructions Additional Instructions/Restrictions: You were evaluated in the emergency department today. Please proceed with outpatient antibiotics as instructed by hospital medicine. Please continue taking your Bumex, 4 mg 3 times daily. Keep your Rios catheter in place until you follow-up with urology given issues with urinary retention. Please follow- up closely with urology, cardiology, and with your primary care provider. Return to the emergency department right away for new or worsening symptoms or if your swelling does not improve after increasing your Bumex. Clinical Impressions Clinical Impression: Volume overload, Peripheral edema, Hypokalemia, Recurrent UTI, Acute on chronic urinary retention CHF (congestive heart failure) Qualifiers: Heart failure type: unspecified Heart failure chronicity: acute on chronic Q ualified Code(s): I50.9 - Heart failure, unspecified Instructions Patient Instructions: How to Care for Your Male Rios Catheter, DI for Heart Failure, DI for Hypokalemia, DI for Bilateral Peripheral Edema Print Language Print Language: Ukrainian Discharge ED Provider: Odalys Pérez General Adult HPI General Chief complaint: Extremity Problem,Nontraumatic Stated complaint: Sent per cardiology for swelling Time Seen by Provider: 04/25/25 10:40 Mode of Arrival: Wheelchair Source of Information: Patient Description of Symptoms (Recalled from ER Triage Doc. by RN): Patient reports being discharged from this hospital on Thursday related to increased swelling in his legs and an UTI. States that they removed his rios and he has had difficulty emptying his bladder. States he was being seen in the cardiology office today and they recommended him come to the er for possible rios placement and possible admission. History of Present Illness HPI narrative: This patient is a 49-year-old male with a history of morbid obesity, type 2 diabetes, QUINN, hypertension hyperlipidemia, paroxysmal atrial fibrillation on Xarelto, CHF presented to the emergency department for evaluation with concern for worsening lower extremity swelling and difficulty urinating. Patient was recently admitted for acute CHF, placed on Bumex drip, and was diuresed approximately 22 L. He was discharged home on Bumex 4 mg 3 times daily, but he states he is only been able to take it twice a day because he is having trouble getting up and going to the bathroom secondary to obesity and knee pain. He states that he also has been having difficulty urinating. While admitted, he notes he had a Rios catheter and was diagnosed with a UTI. He states that his urinary symptoms are gotten worse and he is worried that he needs another catheter. He went to cardiology who advised that he present for catheter placement. He tried to go see urology, but they were not able to get him in, so he came here. He notes that the leg swelling is worse than it was prior to his admission here 04/12/2025. Aside from leg swelling, difficulty urinating, he also notes some shortness of breath. No other concerns or complaints noted Related Data Home Medications ?Medication ?Instructions ?Recorded ?Confirmed insulin syringe-needle U-100 1 mL #10 ea 02/18/2409/06 30 gauge x 1/2 (BD Insulin Syringe Ultra-Fine) bisoprolol fumarate 5 mg tablet 5 mg PO BID 12/08/24 1 trazodone 100 mg tablet 100 mg PO HS 12/08/24 venlafaxine 150 mg 150 mg PO DAILY 12/08/2408/06 capsule,extended release 24 hr cariprazine 3 mg capsule (Vraylar) 3 mg PO DAILY 02/2304/12/25 Previous Rx's ?Medication ?Instructions ?Recorded pen needle, diabetic 32 gauge x #100 ea 09/16/23 (Comfort EZ Pen Connell) diltiazem HCl 120 mg 120 mg PO DAILY #90 caps 07/05 capsule,extended release 24 hr albuterol sulfate 90 mcg/actuation 2 puff inhalation Q 4-6H PRN 09/27/24 aerosol inhaler shortness of breath or wheez ing #8.5 grams semaglutide 0.25 mg or 0.5 mg (2 0.25 mg (0.368 mL) SQ WEEKLY #3 mL 12/09/24 mg/3 mL) subcutaneous pen injector (OzempFly Victor) omeprazole 40 mg capsule,delayed 40 mg PO BID #90 caps 12/22/24 release nystatin-triamcinolone 100,000 1 applic topical BID 30 days #30 02/24/25 unit/g-0.1 % topical cream grams tamsulosin 0.4 mg capsule (Flomax) 0.4 mg PO DAILY 90 days #90 caps 02/24/25 spironolactone 100 mg tablet 100 mg PO DAILY #30 tabs 02/27/25 (Aldactone) atorvastatin 40 mg tablet 40 mg PO HS #90 tabs 5 blood-glucose sensor (Dexcom G7 #1 ea 03/21/25 Sensor device) blood-glucose sensor (Dexcom G7 #3 ea 03/21/25 Sensor device) blood-glucose,arborist representative,cont #1 ea 03/21/25 (Dexcom G7 Aircraft Maintenance Instructor) gabapentin 600 mg tablet 600 mg PO TID #90 tabs 03/28 hydrocodone 10 mg-acetaminophen 1 tab PO TIDP PRN pain #90 tabs 03/28/25 325 mg tablet lorazepam 1 mg tablet 1 mg PO DAILYP PRN anxiety # 15 tabs 03/28/25 ondansetron 8 mg disintegrating 8 mg PO Q12H #30 tabs 03/30/25 tablet mupirocin 2 % topical ointment 1 applic topical BID in fection 14 04/05/25 days #22 grams rivaroxaban 20 mg tablet (Xarelto) 20 mg PO QPMWITHMEA L #30 tabs 04/06/25 torsemide 20 mg tablet 40 mg (2 x 20 mg) PO QID 30 days 04/06/25 Held on 04/17/25. #240 tabs Instructions: until cardiology f/u erythromycin-benzoyl peroxide 3 1 applic topical BID 3 0 days #46.6 04/12/25 %-5 % topical gel grams Humulin R U-500 (Conc) Kwikpen 500 225 unit (0.45 mL) SQ BID #24 mL 04/24/25 unit/mL (3 mL) subcutaneous (insulin regular hum U-500 conc) bumetanide 2 mg tablet 4 mg (2 x 2 mg) PO TID 30 da ys 04/24/25 #180 tabs metformin 1,000 mg tablet 1,000 mg PO BID #60 tabs Allergies Allergy/AdvReac Type Severity Reaction Status Date / Time vancomycin AdvReac Severe Redness of Verified 04/06/25 10:28 Skin clindamycin AdvReac Mild Nausea Verified 04/06/25 10:28 doxycycline AdvReac Mild Upset Verified 04/06/25 10:28 stomach, heartbur [facility] Disclaimer: The information contained in this section may have been updated after the patient was seen, as this information can be updated by other users. 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 Tachycardia Bilateral knee pain DDD (degenerative disc disease), lumbar Depression Morbid obesity with body mass index of 70 and over in adult CHF (congestive heart failure) COPD (chronic obstructive pulmonary disease) Diabetes Dyspnea BMI 60.0-69.9, adult Obesity Anxiety disorder Hypertension Diabetes type 2, uncontrolled Surgical History S/P gastric sleeve procedure History of gastric bypass Family History Father Cancer Other No significant family history Social History Smoking Status: Never smoker alcohol intake: former year quit: 2021 counseling given: Yes counseling provided: provider counseling substance use type: denies use current occupational status: unemployed and disabled Travel in the last 8 weeks?: None household members: spouse and children housing: house marital status: number of children: 1 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 current occupational exposures/hazards: No pets and animals: Yes pets and animals: cat(s) diet: other caffeine: Yes physical activity: none Have you lived/traveled outside [place] in past 30 days?: No Contact w/someone who lives/traveled outside [place] past 30 days?: No Exposure to someone with infectious disease in past 14 days?: No Do you have a fever (greater than 100.4 F or 38 C)?: No Have you tested positive for COVID-19?: No Exposed to someone with COVID-19 in past 14 days?: No Do you have a sore throat?: No Do you have a cough?: No Do you have any weakness?: No Do you have any diarrhea?: No Are you experiencing any unusual bleeding?: No Do you have any muscle aches/pain?: No Do you have any abdominal pain?: No Are you experiencing loss of taste or smell?: No Other Medical History Have you received the Flu Vaccine for this season: No Have you received the Pneumonia Vaccine: No ROS Obtained: Yes All systems reviewed & no additional complaints except as documented Physical Exam General General appearance: alert, in no apparent distress and obese Head Head exam: atraumatic and normocephalic Eye Eye exam: Present normal appearance, PERRL and EOMI ENT ENT exam: Present normal exam, normal oropharynx, mucous membranes moist and normal external ear exam Neck Neck exam: Present normal inspection, full ROM and trachea midline; Absent tenderness Chest Chest inspection: Present normal inspection and symmetric chest wall rise; Absent tenderness Respiratory Respiratory exam: Present normal lung sounds bilaterally; Absent respiratory distress, wheezes, stridor or accessory muscle use Cardiovascular Cardiovascular exam: Present regular rate and normal rhythm Abdominal Exam Abdominal exam: Present soft; Absent distention, tenderness or guarding Extremities Exam Extremities exam: Present normal capillary refill, edema and other (Significant bilateral lower extremity edema, especially about the groin. Chronic skin changes of lower extremities); Absent tenderness Back Exam Back exam: Present normal inspection and full ROM; Absent tenderness Neurological Exam Neurological exam: Present alert, oriented X3 and CN II-XII intact; Absent motor sensory deficit Psychiatric Psychiatric exam: Present normal affect and normal mood Skin Skin exam: Present warm and dry Medical Decision Making Medical Records Medical records reviewed: Yes I reviewed the patient's medical records. Screening: Per USPSTF and CDC recommendations, given the prevalence of disease in our region, it is our hospital?s policy to screen for HIV and viral Hepatitis for all patients aged 18 and over and those with ongoing risk factors. Sy Inquiry Pt receiving controlled substance: No Vital Signs: 04/25/25 10:40 04/25/25 10:43 04/25/25 11:00 Temperature 98.1 F Temperature Source Oral Pulse Rate 78 77 Pulse Rate [Radial] 77 Respiratory Rate 18 Blood Pressure 142/67 H 155/72 H Blood Pressure [Right Arm] 142/67 H Blood Pressure Mean Blood Pressure Mean [Right Arm] 92 Blood Pressure Source [Right Arm] Automatic Cuff Blood Pressure Position [Right Arm] Sitting 02 Sat by Pulse Oximetry 94 L 95 96 Oxygen Delivery Method Room Air Room Air Room Air 04/25/25 11:09 04/25/25 11:31 04/25/25 12:00 Temperature Temperature Source Pulse Rate 76 80 76 Pulse Rate [Radial] Respiratory Rate Blood Pressure 146/74 H 168/93 H 169/129 H Blood Pressure [Right Arm] Blood Pressure Mean Blood Pressure Mean [Right Arm] Blood Pressure Source [Right Arm] Blood Pressure Position [Right Arm] 02 Sat by Pulse Oximetry 97 98 92 L Oxygen Delivery Method Room Air Room Air Room Air 04/25/25 12:30 04/25/25 13:00 Temperature Temperature Source Pulse Rate 77 76 Pulse Rate [Radial] Respiratory Rate Blood Pressure 140/75 161/82 H Blood Pressure [Right Arm] Blood Pressure Mean 96 108 Blood Pressure Mean [Right Arm] Blood Pressure Source [Right Arm] Blood Pressure Position [Right Arm] 02 Sat by Pulse Oximetry 97 98 Oxygen Delivery Method Lab Data Lab results reviewed: Yes I reviewed the patient's lab results. Lab Results 04/25/25 11:10: WBC 7.1, RBC 4.25 L, Hgb 9.5 L, Hct 32.3 L, MCV 76.0 L, MCH 22.4 L, MCHC 29.4 L, RDW 19.4 H, Plt Count 217, MPV 8.8, Neut % (Auto) 81.8 H, Lymph % (Auto) 9.5 L, Preston % (Auto) 6.2, Eos % (Auto) 1.8, Baso % (Auto) 0.3, Neut # (Auto) 5.8, Lymph # (Auto) 0.7, Preston # (Auto) 0.4, Eos # (Auto) 0.1, Baso # (Auto) 0.0, Sodium 135 L, Potassium 3.3 L, Chloride 91 L, Carbon Dioxide 34 H, Anion Gap 13.3, BUN 8 L, Creatinine 0.70, Estimated Creat Clear 143, Estimated GFR 121, Est GFR ( Amer) 146, Glucose 161 H, Calcium 8.9, Phosphorus 2.9, Magnesium 1.6, Total Bilirubin 0.7, AST 21, ALT 17, Alkaline Phosphatase 68, NT-Pro-B Natriuret Pep 88.2, Total Protein 7.5, Albumin 3.6, Globulin 3.9 H, A lbumin/Globulin Ratio 0.9 L 04/25/25 11:34: Urine Color Yellow, Urine Appearance Clear, Urine pH 6.5, Ur Specific Harrison <= 1.005, Urine Protein Negative, Urine Glucose (UA) Negative, Urine Ketones Negative, Urine Blood 2+ A, Urine Nitrate Positive A, Urine Bilirubin Negative, Urine Urobilinogen 0.2, Ur Leukocyte Esterase 3+ A, Urine RBC 5-10, Urine WBC 20-50, Ur Squamous Epith Cells None, Urine Bacteria 4+ 04/25/25 13:47: Urine Color Yellow, Urine Appearance Clear, Urine pH 7.0, Ur Specific Harrison <= 1.005, Urine Protein Negative, Urine Glucose (UA) Negative, Urine Ketones Negative, Urine Blood 2+ A, Urine Nitrate Positive A, Urine Bilirubin Negative, Urine Urobilinogen 0.2, Ur Leukocyte Esterase 3+ A, Urine RBC 5-10, Urine WBC 20-50, Ur Squamous Epith Cells 3-5, Urine Bacteria 4+ 10/14/25 11:10 04/25/25 11:10 Orders (Tests/Meds): ED MEDICATIONS Generic Name Dose Route Start Last Admin Trade Name Freq PRN Reason Stop Dose Admin Sodium Chloride 10 ml 04/25/25 13:10 Sodium Chloride 0.9% 10ml Flush Syringe IV 04/26/25 13:11 NEEDED PRN Maintain IV Site Discontinued Medications Generic Name Dose Route Start Last Admin Trade Name Freq PRN Reason Stop Dose Admin Bumetanide 4 mg 04/25/25 12:47 04/25/25 14:03 Bumetanide 1mg/4ml Vial IV 04/25/25 12:48 4 mg ONCE ONE Administration Ertapenem 1 gm/ Sodium 50 mls @ 100 mls/hr 04/25/25 12:46 04/25/25 14:12 Chloride IV 04/25/25 12:47 100 mls/hr ONCE ONE Administration Potassium Chloride 40 meq 04/25/25 11:47 04/25/25 12:00 Potassium Chloride 20meq Tab PO 04/25/25 11:48 40 meq ONCE ONE Administration ORDERS Category Date Time Status Consult to Case Management [CONS] Routine Cons 04/25/25 13:31 Active BNP [NT Pro Brain Natriuretic Pep.] Stat Lab 04/25/25 11:10 Completed Complete Blood Count Auto Diff Stat Lab 04/25/25 11:10 Completed Comprehensive Metabolic Panel Stat Lab 04/25/25 11:10 Completed MAG [Magnesium] Stat Lab 04/25/25 11:10 Completed PHOS [Phosphorous] Stat Lab 04/25/25 11:10 Completed UA [Urinalysis and Microscopic] Stat Lab 04/25/25 11:34 Completed UA [Urinalysis and Microscopic] Stat Lab 04/25/25 13:47 Completed Blood Culture Stat Micro 04/25/25 14:00 Received Urine Culture Stat Micro 04/25/25 11:34 Received Urine Culture Stat Micro 04/25/25 13:47 Received ECG Data Tracing #1: I reviewed this ECG and interpreted as documented below: I independently interpreted EKG at 1220 and noted sinus rhythm with a ventricular rate of [address] changes concerning for STEMI. Interventricular conduction delay ECG initial impression date: 04/25/25 ECG initial impression time: 12:20 Medical Decision Narrative: In summary, this patient is a 49-year-old male presenting to the Emergency Department for evaluation of bilateral leg swelling, difficulty urinating, shortness of breath. Differential diagnoses considered include but are not limited to CHF exacerbation, volume overload, urinary retention, UTI, LIZZETTE. Ruling out the most morbid conditions drove assessment. It should be noted patient's history includes obesity, QUINN, CHF, chronic A-fib, type 2 diabetes, hypertension which are not at goal therapy. This complicates all aspects of care by increasing patient's risk for morbidity. I reviewed patient's past medical records and noted recent admission with aggressive diuresis of over 22 L as detailed in HPI. He notes that this seems to be worse than when he was admitted last time. On exam, the patient has impressive bilateral lower extremity edema all the way to his groin. He has no increased work of breathing. Vitals are reassuring on cardiac telemetry. Workup included CBC, CMP, magnesium, phosphorus, urinalysis, EKG, postvoid bladder scan. On reassessment, the patient is sitting in no acute distress. CBC is reassuring with no significant leukocytosis. Chemistry demonstrates mild hypokalemia for which oral repletion was ordered. Urine is again concerning for infection. He had greater than 300 mL on postvoid bladder scan, just so decision was made to anchor a Rios catheter for urinary retention. Patient was also given 4 mg of IV Bumex. Critical Care Critical Care Time Critical Care Time: No
[2025-04-25 11:22] LABS: Hematocrit 32.3 % (42.0-52.0); Hemoglobin 9.5 g/dL (14.1-18.0); Immature Granulocytes % 0.4 %; Mean Corpuscular HGB Conc 29.4 g/dL (31.8-35.4); Mean Corpuscular Hemoglobin 22.4 pg (27.0-31.2); Mean Corpuscular Volume 76.0 fl (80-94); Nucleated Red Blood Cells % 0 %; Platelet Count 217 K/mm3 (142-424); Red Blood Count 4.25 M/mm3 (4.60-6.20); Red Cell Distribution Width-SD 53.5 fL; White Blood Count 7.1 K/mm3 (4.8-10.8)
[2025-04-25 11:24] LABS: Albumin Level 3.6 g/dl (3.5-5.0); Chloride 91 mmol/L (98-107); Sodium 135 mmol/L (136-145)
[2025-04-25 11:25] LABS: Potassium 3.3 mmoL/L (3.5-5.1)
[2025-04-25 11:27] LABS: Alanine Aminotransferase 17 U/L (12-78); Albumin/Globulin Ratio 0.9 (1.1-1.8); Anion Gap 13.3 mEq/L (5-15); Aspartate Amino Transferase 21 U/L (17-59); Blood Urea Nitrogen 8 mg/dl (9-20); Carbon Dioxide 34 mmol/L (22.0-30.0); Creatinine Clearance Estimated 143 mL/min (50-200); Creatinine,Serum 0.70 mg/dl (0.66-1.25); Estimated Glomerular Filt Rate 121 ml/min (>60); GFR (African American) 146 ML/MIN (>60); Globulin 3.9 g/dL (1.3-3.2); Total Protein,Serum 7.5 g/dl (6.3-8.2)
[2025-04-25 11:28] LABS: Alkaline Phosphatase 68 U/L (38-126); Bilirubin,Total 0.7 mg/dl (0.2-1.3); Calcium 8.9 mg/dl (8.4-10.2); Glucose 161 mg/dl (74-100); Magnesium 1.6 mg/dl (1.6-2.3); Phosphorous 2.9 mg/dl (2.5-4.5)
[2025-04-25 11:36] LABS: NT Pro Brain Natriuretic Pep. 88.2 pg/mL (0-125)
[2025-04-25 11:38] LABS: Microscopic, Urine URINE MICROSCOPIC (MICROSCOPIC)
[2025-04-25 11:41] LABS: Bilirubin,Urine Negative (Negative); Color,Urine YELLOW (Yellow); Glucose,Urine (UA) Negative (Negative); Ketones,Urine Negative (Negative); Leukocyte Esterase,Urine 3+ (Negative); PH,Urine 6.5 (5.0-8.5); Protein,Urine Negative (Negative); Specific Gravity, Urine <= 1.005 (1.005-1.030); Urobilinogen,Urine 0.2 EU/dl (0.2)
[2025-04-25] MEDS: POTASSIUM CHLORIDE 20MEQ TAB 40 MEQ PO (12:00)
[2025-04-25 12:06] LABS: Bacteria,Urine 4+ /lpf; WBC,Urine 20-50 #/hpf (0-3)
--- NOTE | 2025-04-25 12:18 | ECG_ITS ---
APPROVED REPORT Exam: Resting ECG HR:78 bpm ECG Measurements Heart Rate 78 AXES WI 63 P 181 QRSd 135 QRS -34 QT 434 T 94 QTc 467 Conclusion SINUS RHYTHM WITH SHORT WI INTERVAL LEFT AXIS DEVIATION [QRS AXIS < -30] INTRAVENTRICULAR CONDUCTION DELAY [130+ ms QRS DURATION] ANTEROSEPTAL MYOCARDIAL INFARCTION , OF INDETERMINATE AGE [40+ ms Q WAVE IN V1-V4] ABNORMAL ECG Electronically signed by : YAHIR MEJIA, 04/28/2025 16:14:35
--- NOTE | 2025-04-25 13:21 | P.CONS_ITS ---
<Statement entered by Sebastián Todd MD - 04/25/25 19:23> Rounded on patient after nurse practitioner. Personally examined and interviewed patient. Agree with exam findings and care plan as documented. History of Present Illness *Admission Date: 04/25/25 *Reason for visit:: swelling in legs, cant pee *History of present illness: Mr. Russell is a 49-year-old male who presented to the emergency department today with urinary retention and edema to his groin and thighs. Patient has primary medical history of HFpEF, ESBL UTI, morbid obesity BMI 77, QUINN, type 2 diabetes, diabetic neuropathy, paroxysmal A-fib, hyperlipidemia, hypertension, DDD, depression, anxiety, COPD, cirrhosis. He was recently admitted to the hospital from April 12, 2025 to April 17, 2025 for diuresis and ESBL UTI. He presented today with urinary retention, and substantial edema to his thighs and groin. He states that he has not been compliant with his p.o. diuretics due to the inability to urinate. He does follow with Dr. Smith, urologist, and has an appointment next week on Thursday. Repeat UA in the emergency department showed positive nitrites, 3+ leuk esterase, 2+ blood. Last UA was ESBL positive and patient received 1 week of meropenem/ertapenem. [facility] Disclaimer: The information contained in this section may have been updated after the patient was seen, as this information can be updated by other users. 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 Tachycardia Bilateral knee pain DDD (degenerative disc disease), lumbar Depression Morbid obesity with body mass index of 70 and over in adult CHF (congestive heart failure) COPD (chronic obstructive pulmonary disease) Diabetes Dyspnea BMI 60.0-69.9, adult Obesity Anxiety disorder Hypertension Diabetes type 2, uncontrolled Surgical History S/P gastric sleeve procedure History of gastric bypass Family History Father Cancer Other No significant family history Social History Smoking Status: Never smoker alcohol intake: former year quit: 2021 counseling given: Yes counseling provided: provider counseling substance use type: denies use current occupational status: unemployed and disabled Travel in the last 8 weeks?: None household members: spouse and children housing: house marital status: number of children: 1 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 current occupational exposures/hazards: No pets and animals: Yes pets and animals: cat(s) diet: other caffeine: Yes physical activity: none Have you lived/traveled outside [place] in past 30 days?: No Contact w/someone who lives/traveled outside [place] past 30 days?: No Exposure to someone with infectious disease in past 14 days?: No Do you have a fever (greater than 100.4 F or 38 C)?: No Have you tested positive for COVID-19?: No Exposed to someone with COVID-19 in past 14 days?: No Do you have a sore throat?: No Do you have a cough?: No Do you have any weakness?: No Do you have any diarrhea?: No Are you experiencing any unusual bleeding?: No Do you have any muscle aches/pain?: No Do you have any abdominal pain?: No Are you experiencing loss of taste or smell?: No Review of Systems Constitutional Constitutional: Denies fever(s), Reports weakness and Reports weight gain Eyes Eyes: Denies loss of vision ENT Ears, Nose, Mouth, and Throat: Denies vertigo *Cardiovascular Cardiovascular: Denies chest pain, Denies dyspnea, Reports dyspnea on exertion, Reports leg edema, Reports leg ulcers, Reports pedal edema, Denies rapid heart rate and Denies syncope *Respiratory Respiratory: Denies chest congestion, Denies dyspnea and Reports dyspnea on exertion *Gastrointestinal Gastrointestinal: Denies abdominal pain, Denies constipation and Denies loose stools *Genitourinary Genitourinary: Denies dysuria Comments: rios catheter in place *Musculoskeletal Musculoskeletal: Reports back pain Integumentary/Breasts Skin/Breast: Reports erythema, Reports skin ulcer, Reports skin swelling and Reports wounds *Neurologic Neurologic: Denies loss of vision, Denies syncope, Denies vertigo and Reports weakness Exam Data for Last 24 hours Vital signs and Labs for Last 24 Hours: Temp Pulse Resp BP Pulse Ox O2 Del Method 98.1 F 76 18 169/129 H 92 L Room Air 04/25/25 10:43 04/25/25 12:00 04/25/25 10:43 04/25/25 12:00 04/25/25 12:00 04/25/25 12:00 Laboratory Results - last 24 hr 04/25/25 11:10: WBC 7.1, RBC 4.25 L, Hgb 9.5 L, Hct 32.3 L, MCV 76.0 L, MCH 22.4 L, MCHC 29.4 L, RDW 19.4 H, Plt Count 217, MPV 8.8, Neut % (Auto) 81.8 H, Lymph % (Auto) 9.5 L, [place] % (Auto) 6.2, Eos % (Auto) 1.8, Baso % (Auto) 0.3, Neut # (Auto) 5.8, Lymph # (Auto) 0.7, [place] # (Auto) 0.4, Eos # (Auto) 0.1, Baso # (Auto) 0.0, Sodium 135 L, Potassium 3.3 L, Chloride 91 L, Carbon Dioxide 34 H, Anion Gap 13.3, BUN 8 L, Creatinine 0.70, Estimated Creat Clear 143, Estimated GFR 121, Est GFR ( Amer) 146, Glucose 161 H, Calcium 8.9, Phosphorus 2.9, Magnesium 1.6, Total Bilirubin 0.7, AST 21, ALT 17, Alkaline Phosphatase 68, NT-Pro-B Natriuret Pep 88.2, Total Protein 7.5, Albumin 3.6, Globulin 3.9 H, A lbumin/Globulin Ratio 0.9 L 04/25/25 11:34: Urine Color Yellow, Urine Appearance Clear, Urine pH 6.5, Ur Specific Toyah <= 1.005, Urine Protein Negative, Urine Glucose (UA) Negative, Urine Ketones Negative, Urine Blood 2+ A, Urine Nitrate Positive A, Urine Bilirubin Negative, Urine Urobilinogen 0.2, Ur Leukocyte Esterase 3+ A, Urine RBC 5-10, Urine WBC 20-50, Ur Squamous Epith Cells None, Urine Bacteria 4+ I & O for Last 24 hours: Intake & Output 04/22/25 04/23/25 04/24/25 04/25/25 23:59 23:59 23:59 23:59 Weight 258.548 kg Constitutional Constitutional: no acute distress, morbidly obese, chronically ill appearing and cooperative *Routine HEENT Exam Head: Present normocephalic Eye: Present PERRL ENT: Present mucous membranes moist *Routine Neck Exam Neck: Present supple *Routine Respiratory Exam Respiratory: Present CTA bilaterally, distant breath sounds and normal respiratory effort; Absent wheezes or crackles *Routine Cardiovascular Exam Cardiovascular: Present RRR, Normal S1 and Normal S2; Absent murmur *Routine Abdominal Exam Abdominal: Present soft, normoactive bowel sounds and obese; Absent tenderness *Routine Rectal Exam Patient deferred: visual exam *Routine Exam Penile: Present swelling and erythema Testicular: bilateral: swelling Scrotal: Present swelling and erythema Groin: Present swelling and erythema *Routine Extremities Exam Extremities: Present edema; Absent cyanosis Comments: Pronounced edema bilateral thighs and groin, 1+ edema bilateral lower extremity *Routine Skin Exam Skin: Present intact, erythema (Bilateral lower extremities) and wounds (Right foot, left lower leg) *Routine Neurological Exam Neurological: Present alert, oriented X3, vision grossly intact, hearing grossly intact and normal speech Routine Psychiatric Exam Psychiatric: Present cooperative Meds Home Medications and Allergies Home Medications ?Medication ?Instructions ?Recorded ?Confirmed ?Type pen needle, diabetic 32 gauge x #100 ea 09/16/2304/13 Rx 5/32 (Comfort EZ Pen Wood) insulin syringe-needle U-100 1 mL #10 ea 02/18/2409/06 History 30 gauge x 1/2 (BD Insulin Syringe Ultra-Fine) diltiazem HCl 120 mg 120 mg PO DAILY #90 caps 07/0504/12/25 Rx capsule,extended release 24 hr albuterol sulfate 90 mcg/actuation 2 puff inhalation Q 4-6H PRN 09/27/24 04/12/25 Rx aerosol inhaler shortness of breath or wheez ing #8.5 grams bisoprolol fumarate 5 mg tablet 5 mg PO BID 12/08/24 1 History trazodone 100 mg tablet 100 mg PO HS 12/08/24 History venlafaxine 150 mg 150 mg PO DAILY 12/08/2408/06 History capsule,extended release 24 hr semaglutide 0.25 mg or 0.5 mg (2 0.25 mg (0.368 mL) SQ WEEKLY #3 mL 12/09/24 04/12/25 Rx mg/3 mL) subcutaneous pen injector (Ozempic) omeprazole 40 mg capsule,delayed 40 mg PO BID #90 caps 12/22/24 04/12/25 Rx release cariprazine 3 mg capsule (Vraylar) 3 mg PO DAILY 02/2304/12/25 History nystatin-triamcinolone 100,000 1 applic topical BID 30 days #30 02/24/25 04/12/25 Rx unit/g-0.1 % topical cream grams tamsulosin 0.4 mg capsule (Flomax) 0.4 mg PO DAILY 90 days #90 caps 02/24/25 04/12/25 Rx spironolactone 100 mg tablet 100 mg PO DAILY #30 tabs 02/27/25 04/12/25 Rx (Aldactone) atorvastatin 40 mg tablet 40 mg PO HS #90 tabs 2 5 04/12/25 Rx blood-glucose sensor (Dexcom G7 #1 ea 03/21/25 5 Rx Sensor device) blood-glucose sensor (Dexcom G7 #3 ea 03/21/25 5 Rx Sensor device) blood-glucose,extractor filler,cont #1 ea 03/21/25 04/13/25 Rx (Dexcom G7 Rn Physician Office) gabapentin 600 mg tablet 600 mg PO TID #90 tabs 03/2804/12/25 Rx hydrocodone 10 mg-acetaminophen 1 tab PO TIDP PRN pain #90 tabs 03/28/25 04/12/25 Rx 325 mg tablet lorazepam 1 mg tablet 1 mg PO DAILYP PRN anxiety # 15 tabs 03/28/25 04/12/25 Rx ondansetron 8 mg disintegrating 8 mg PO Q12H #30 tabs 03/30/25 04/12/25 Rx tablet mupirocin 2 % topical ointment 1 applic topical BID in fection 14 04/05/25 04/12/25 Rx days #22 grams rivaroxaban 20 mg tablet (Xarelto) 20 mg PO QPMWITHMEA L #30 tabs 04/06/25 04/12/25 Rx torsemide 20 mg tablet 40 mg (2 x 20 mg) PO QID 30 days 04/06/25 04/12/25 Rx Held on 04/17/25. #240 tabs Instructions: until cardiology f/u erythromycin-benzoyl peroxide 3 1 applic topical BID 3 0 days #46.6 04/12/25 Rx %-5 % topical gel grams Humulin R U-500 (Conc) Kwikpen 500 225 unit (0.45 mL) SQ BID #24 mL 04/24/25 Rx unit/mL (3 mL) subcutaneous (insulin regular hum U-500 conc) bumetanide 2 mg tablet 4 mg (2 x 2 mg) PO TID 30 da ys 04/24/25 Rx #180 tabs metformin 1,000 mg tablet 1,000 mg PO BID #60 tabs Rx New Prescriptions to Start Prescriptions: Allergies Allergy/AdvReac Type Severity Reaction Status Date / Time vancomycin AdvReac Severe Redness of Verified 04/06/25 10:28 Skin clindamycin AdvReac Mild Nausea Verified 04/06/25 10:28 doxycycline AdvReac Mild Upset Verified 04/06/25 10:28 stomach, heartbur Results Labs 04/25/25 11:10 04/25/25 11:10 Labs: Abnormal lab results 04/25/25 04/25/25 Range/Units 11:10 11:34 RBC 4.25 L (4.60-6.20) M/mm3 Hgb 9.5 L (14.1-18.0) g/dL Hct 32.3 L (42.0-52.0) % MCV 76.0 L (80-94) fl MCH 22.4 L (27.0-31.2) pg MCHC 29.4 L (31.8-35.4) g/dL RDW 19.4 H (11.5-17.5) % Neut % (Auto) 81.8 H (37.0-80.0) % Lymph % (Auto) 9.5 L (10-50) % Sodium 135 L (136-145) mmol/L Potassium 3.3 L (3.5-5.1) mmoL/L Chloride 91 L (98-107) mmol/L Carbon Dioxide 34 H (22.0-30.0) mmol/L BUN 8 L (9-20) mg/dl Glucose 161 H (74-100) mg/dl Globulin 3.9 H (1.3-3.2) g/dL Albumin/Globulin Ratio 0.9 L (1.1-1.8) Urine Blood 2+ A (Negative) Urine Nitrate Positive A (Negative) Ur Leukocyte Esterase 3+ A (Negative) H & H 04/25/25 Range/Units 11:10 Hgb 9.5 L (14.1-18.0) g/dL Hct 32.3 L (42.0-52.0) % All other labs normal. Assessment and Plan *Assessment and plan (1) Acute on chronic urinary retention: Status: Acute Category: Medical Code(s): R33.9 - Retention of urine, unspecified (2) Recurrent UTI: Status: Acute Category: Medical Code(s): N39.0 - Urinary tract infection, site not specified (3) Acute on chronic heart failure with preserved ejection fraction (HFpEF): Status: Acute Category: Medical Code(s): I50.33 - Acute on chronic diastolic (congestive) heart failure Plan Mr. Russell is a 49-year-old male who presented to the emergency department today with urinary retention and edema to his groin and thighs. Patient has primary medical history of HFpEF, ESBL UTI, morbid obesity BMI 77, QUINN, type 2 diabetes, diabetic neuropathy, paroxysmal A-fib, hyperlipidemia, hypertension, DDD, depression, anxiety, COPD, cirrhosis. He was recently admitted to the hospital from April 12, 2025 to April 17, 2025 for diuresis and ESBL UTI. He presented today with urinary retention, and substantial edema to his thighs and groin. He states that he has not been compliant with his p.o. diuretics due to the inability to urinate. He does follow with Dr. Smith, urologist, and has an appointment next week on Thursday. Repeat UA in the emergency department showed positive nitrites, 3+ leuk esterase, 2+ blood. Last urine culture was positive for ESBL and patient received 1 week of meropenem/ertapenem. Assessment of patient does reveal largely edematous thighs and groin. Patient lower extremities show 1+ edema. Unable to assess postvoid residual due to body habitus. Patient remained stable on room air during emergency department visit. Discussed in depth with patient admission versus outpatient management. Patient is adamant he would prefer to not be admitted to the hospital again. He is agreeable to Rios catheter placement (placed in the ED) and midline insertion for IV antibiotics. Interactive discussion with ED physician and Dr. Todd, as well as cardiology. Decision was made for outpatient management with Rios catheter placement upon discharge, midline placement in the emergency department with daily Invanz 1 g IV (first dose given in the ED), and increase in Bumex to 4 mg p.o. 3 times daily (first dose given in the ED). Discussed in depth with patient indications to return to the emergency department, little to no urinary output, fevers, shortness of breath or hypoxia. Patient's spouse at bedside and agreeable to plan. Patient prefers home health services, coordinated with care management. Patient has follow-up appointment with cardiology on Thursday05/01/2025 and urology on 05/03/2025. Advised patient it is essential to keep follow-up appointments and continue medication adherence to current regimen.
--- NOTE | 2025-04-25 13:47 | SW/DCPLANNER ---
Addendum entered by Marilu Dwyer 04/25/25 14:39: [facility] is able to help with patient's antibiotics and at no cost since patient has met his deductible. [employer] will be reaching out to the patient to deliver his medicine. Luis E Schroeder Addendum entered by Marilu Dwyer 04/25/25 14:29: [facility] is able to accept patient. Luis E Schroeder Original Note: Spoke with patient regarding having home health for his IV antibiotic. I faxed patient's information to [facility] for home health and to [facility] to get his IV antibiotics. I will update when i hear back from them if they can accept and the charge if any for the antibiotics. Luis E Schroeder
[2025-04-25 13:53] LABS: Microscopic, Urine URINE MICROSCOPIC (MICROSCOPIC)
[2025-04-25 13:58] LABS: Bilirubin,Urine Negative (Negative); Color,Urine YELLOW (Yellow); Glucose,Urine (UA) Negative (Negative); Ketones,Urine Negative (Negative); Leukocyte Esterase,Urine 3+ (Negative); PH,Urine 7.0 (5.0-8.5); Protein,Urine Negative (Negative); Specific Gravity, Urine <= 1.005 (1.005-1.030); Urobilinogen,Urine 0.2 EU/dl (0.2)
[2025-04-25] MEDS: BUMETANIDE 1MG/4ML VIAL 4 MG IV (14:03)
[2025-04-25] MEDS: ERTAPENEM SODIUM 1 GM in 0.9 % SODIUM CHLORIDE 50 ML IV (14:12)
[2025-04-25 14:29] LABS: Bacteria,Urine 4+ /lpf; WBC,Urine 20-50 #/hpf (0-3)
--- NOTE | 2025-04-28 09:32 | PC.NURSE ---
Preliminary urine culture results reviewed by Dr. Acuña. No further action needed at this time.
== END 2025-04-25 15:08 | disposition home or self-care (01) ==
PROVIDERS: Emergency Provider Emergency Medicine; PCP Nurse Practitioner Family
DX: N39.0 Urinary tract infection, site not specified (principal); E87.70 Fluid overload, unspecified; R33.9 Retention of urine, unspecified; E87.6 Hypokalemia; R60.0 Localized edema; E66.01 Morbid (severe) obesity due to excess calories; I11.0 Hypertensive heart disease with heart failure; I50.33 Acute on chronic diastolic (congestive) heart failure; B96.89 Other specified bacterial agents as the cause of diseases classified elsewhere; E11.9 Type 2 diabetes mellitus without complications; I48.0 Paroxysmal atrial fibrillation; Z79.01 Long term (current) use of anticoagulants; Z87.891 Personal history of nicotine dependence; Z68.45 Body mass index [BMI] 70 or greater, adult; Z79.4 Long term (current) use of insulin; Z16.12 Extended spectrum beta lactamase (ESBL) resistance
CPT/HCPCS: 51702; 80053; 81001; 83735; 83880; 84100; 85025; 87040; 87086; 87088; 93005; 96374; 96375; 99285; J1335; J1939

== ENCOUNTER 2025-05-20 17:35 | Observation (INO) | payer MEDICARE, BC, SELFPAY ==
--- OUTSIDE RECORDS SUMMARY | 2025-04-27 20:29 | XMS_ITS | Encounter Summary ---
Author Organization [facility] Address [address] [place] [address] Care Team Providers Care Breeder Hen Service Technician Name Role Phone Malcolm Hayward APRN Primary Care Provider [phone] Reason for Referral * Consultation (Routine) - Authorized Specialty Diagnoses / Procedures Referred By Contac t Referred To Contact Endocrinology Diagnoses Uncontrolled type 2 diabetes mellitus with hyperglycemia, with long-term current use of insulin Type 2 diabetes mellitus with diabetic peripheral angiopathy without gangrene, with long-term current use of insulin Martina Foote PA [address] [place] [address] Phone: tel: fax: Referral ID Status Reason Start Date Expiration Date Visits Requested Visits Authorized [id number] Authorized Specialty Services Required 5 11/04/2026 1 1 * Consultation (Routine) - Authorized Specialty Diagnoses / Procedures Referred By Contact Referred To Contact [facility]ascular [facility] / [facility] Diagnoses Diabetic foot ulcer with osteomyelitis Diane Guzman MD [address] [place] [address] Phone: tel:[phone] fax:[phone] [facility] [address] [facility] 5th Floor [address] [place] [address] Phone: tel: fax: Referral ID Status Reason Start Date Expiration Date Visits Requested Visits Authorized [id number] Authorized Specialty Services Required 5 11/02/2026 1 1 Reason for Visit * Reason Comments Wound Check * Auth/Cert (Routine) Specialty Diagnoses / Procedures Referred By Anish t Referred To Contact Diagnoses Diabetic foot ulcer with osteomyelitis Greg Lee MD [address] [place] [address] Phone: tel: fax: [facility] Department [address] [place] [address] Phone: tel: Referral ID Status Reason Start Date Expiration Date Visits Re quested Visits Authorized [id number] 1 1 Encounter Details Date Type Department Care Team (Latest Contact Info) Description 04/27/2025 9:29 PM EDT - 05/18/2025 11:48 AM EST Hospital Encounter [facility] Inpatient [address] [place] [address] Jessa Law MD [address] [place] [address] Man Garcia, DO [address] [place] [address] Greg Lee MD [address] [place] [address] Marjorie Myers MD [address] [place] [address] Diane Guzman MD [address] [place] [address] Selin Lee MD [address] [place] [address] Wily Goyal, DO [address] [place] [address] Other chronic osteomyelitis of right foot (CMS/HCC) (Primary Dx); Diabetic foot ulcer with osteomyelitis; Uncontrolled type 2 diabetes mellitus with hyperglycemia, with long-term current use of insulin; Type 2 diabetes mellitus with diabetic peripheral angiopathy without gangrene, with long-term current use of insulin [facility]charge [facility]position[facility] Social History Tobacco Use Types Packs/Day Years [...] afraid of your partner or ex-partner? No 04/28/2025 Within the last year, have y ou been humiliated or emotionally abused in other ways by your partner or ex-partner? No Within the last year, have y ou been kicked, hit, slapped, or otherwise physically hurt by your partner or ex-partner? No 04/28/2025 Within the last year, have y ou been raped or forced to have any kind of sexual activity by your partner or ex-partner? No 04/28/2025 Hunger Vital Sign Answer Date Recorded Within the past 12 months, y ou worried that your food would run out before you got the money to buy more. Never true 04/28/20 25 Within the past 12 months, t he food you bought just didn't last and you didn't have money to get more. Never true 04/28/2025 PRAPARE - Transportation Answer Date Re corded In the past 12 months, has l ack of transportation kept you from medical appointments or from getting medications? No 04/12 In the past 12 months, has l ack of transportation kept you from meetings, work, or from getting things needed for daily living? No 04/28/2025 Housing Stability Vital Sign Answer Nick e Recorded In the last 12 months, was t here a time when you were not able to pay the mortgage or rent on time? No 04/28/2025 In the past 12 months, how m any times have you moved where you were living? 0 04/28/2025 At any time in the past 12 m [facility], were you homeless or living in a custodial (including now)? No 04/28/2025 [facility] Utilities Answer Date Recorded In the past 12 months has [employer] electric, gas, oil, or water company threatened to shut off services in your home? No 04/28/2025 PHQ-2A Answer Date Recorded Patient Health Questionnaire-2 Score 3 12/24/2022 Sex and Gender Information Value Date Recorded Sex Assigned at Not on file Legal Sex Male 8:50 PM EDT Gender Identity Not on file Sexual Orientation Not on file documented as of this encounter Last Filed Vital Signs Vital Sign Reading Time Taken Comments Blood Pressure 150/94 05/18/2025 7:34 AM EST Pulse 58 05/18/2025 7:34 AM EST Temperature 36.5 C (97.7 F) 05/18/2025 7:34 AM EST Respiratory Rate 15 05/18/2025 7:34 AM EST Oxygen Saturation 97% 05/18/2025 7:34 AM EST Inhaled Oxygen Concentration - - Weight 249 kg (550 lb 0.8 oz) 05/18/2025 5:06 AM EST Height 182.9 cm (6') 04/27/2025 10:46 PM EDT Body Mass Index 74.6 04/27/2025 10:46 PM EDT documented in this encounter Functional Status * Calculated C-SSRS Risk Score (Lifetime/Recent) Answer Date of Assessment Author No Risk Indicated 05/18/2025 8:00 AM Kylee Ravi RN * Question Answer Date of Assessment Author 1. Wish to be (Past 1 Month) No 025 8:00 AM Kylee Ravi RN 2. Non-Specific Active Suici jonny Thoughts (Past 1 Month) No 05/18/2025 8:00 AM Kylee Ravi RN 6. Suicidal Behavior (Lifetime) No 8:00 AM Kylee Ravi RN documented as of this encounter Medications at Time of Discharge albuterol 108 (90 Base) MCG/ACT inhaler Inhale 2 puffs every 4 to 6 hours as needed for wheezing or shortness of breath. atorvastatin (Lipitor) 40 MG tablet Take 1 tablet by mouth nightly. 05/10/2018 bisoprolol (Zebeta) 5 MG tablet Take 1 tablet by mouth 2 times a day. 01/17/2021 bumetanide (Bumex) 2 MG tabletIndications:H eart Failure,Hypertensio n Take 2 tablets by mouth 3 times a day. cariprazine (Vraylar) 3 MG capsule Take 1 capsule by mouth daily. dilTIAZem CD (Cardizem CD) 120 MG 24 hr capsule Take 1 capsule by mouth daily. ferrous sulfate 324 MG tablet delayed-release Take 1 tablet by mouth every other day. Do not crush, chew, or split. 05/19/2025 gabapentin (Neurontin) 600 MG tablet Take 1 tablet by mouth 3 times a day. 5 tablet 05/17/2025 HYDROcodone-acetami nophen ([place]) 10-325 MG tablet Take 1 tablet by mouth every 6 hours as needed for severe pain for up to 3 days. 5 tablet 05/17/2025 05/20/20 25 Insulin Pen Needle (Pen [place]) 31G X 5 MM [facility] USE TO INJECT INSULIN 3 TIMES PER DAY 100 each 1 02/27/2025 insulin regular (HumuLIN R U-500) 500 UNIT/ML CONCENTRATED injection vial Inject 90 Units under the skin daily before lunch. 20 mL 5 05/18/2025 insulin regular (HumuLIN R,NovoLIN R) 100 UNIT/ML injection vialIndications:Typ e 2 Diabetes Mellitus Inject 250 Units under the skin 2 times a day with meals. 10 mL 5 05/17/2025 metFORMIN (Glucophage) 1000 MG tabletIndications:T ype 2 diabetes mellitus TAKE 1 TAB BY MOUTH 2 (TWO) TIMES A DAY WITH MEALS. MUST COMPLETE LABS FOR FURTHER RESULTS. 180 tablet 1 10/17/2024 mupirocin (Bactroban) 2 % ointment Apply 1 Application topically 2 times a day. naloxone (Narcan) 4 mg/0.1 mL nasal spray 1. Give 1 spray in nostril for no/slow breathing or cannot wake after opioid use 2. Call 911 3. Repeat in other nostril if symptoms continue 1 each 12/17/2024 omeprazole (PriLOSEC) [address] capsule Take 1 capsule by mouth 2 times a day. 11/03/2016 ondansetron ODT (Zofran-ODT) 8 MG disintegrating tablet Dissolve 1 tablet on the tongue every 12 hours as needed for nausea or vomiting. 03/30/2025 Ostomy Supplies (stomahesive) powder powderIndications:D ermatitis associated with moisture Apply 1 Application topically as needed (as needed). May apply powder over washed areas, and on top of protectant cream. May be mixed together for application. 28.3 g 3 01/10/2025 Ozempic, 0.25 or 0.5 MG/DOSE, 2 MG/3ML solution pen-injector Inject 0.25 mg under the skin 1 time per week. 01/26/2025 rivaroxaban (Xarelto) 20 MG tablet Take 1 tablet by mouth daily. 12/16/2019 spironolactone (Aldactone) 50 MG tablet Take 2 tablets by mouth daily. 09/09/2020 tamsulosin (Flomax) 0.4 MG 24 hr capsule Take 1 capsule by mouth daily. 02/20/2025 venlafaxine XR (Effoxor-XR) 150 MG 24 hr capsule Take 1 capsule by mouth daily. 05/10/2018 documented as of this encounter Miscellaneous Notes * Nursing Note - Kylee Gonzalez RN - 05/18/2025 11:40 AM EST Discharge instructions reviewed with patient. Education completed. No questions at this time. Report called to outside rehab facility. Prescriptions sent to outside pharmacy. PICC line order placed at 05/17 at 1805. PICC removed at 0825 05/18. Pt complete with post PICC removal bedrest at 0855. Patient appropriate for discharge and left via EMS in stable condition, with belongings in hand. Discharge order placed at 05/17 1730. Transport off unit to outside rehab facility at 1055. Barriers to timely discharge: Accepting facility would not receive report until DC summary faxed. Waiting to give report. Electronically Signed by: Kylee Gonzalez RN - 05/18/2025 - 11:45 AM * Care Plan - Kylee Gonzalez RN - 05/18/2025 11:35 AM EST Problem: Skin Injury Risk Increased Goal: Skin Health and Integrity 05/18/2025 113 by Kylee Gonzalez RN Outcome: Ongoing, Progressing 05/18/2025 1130 by Kylee Gonzalez RN Outcome: Ongoing, Progressing Problem: Adult Inpatient Plan of Care Goal: Plan of Care Review 05/18/2025 113 by Kylee Gonzalez RN Outcome: Ongoing, Progressing Flowsheets Taken 05/18/2025 113 by Kylee Gonzalez RN Progress: improving Taken 05/17/20252152 by Ivan Slaughter RN Plan of Care Reviewed With: patient Taken 05/14/20252235 by Florina Hinojosa RN Outcome Evaluation: Reviewed of night plan of care with pt. pt verbalized understanding. 05/18/2025 113 by Kylee Gonzalez RN Outcome: Ongoing, Progressing Flowsheets Taken 05/17/20252152 by Ivan Slaughter RN Progress: improving Plan of Care Reviewed With: patient Taken 05/14/20252235 by Florina Hinojosa RN Outcome Evaluation: Reviewed of night plan of care with pt. pt verbalized understanding. Goal: Patient-Specific Goal (Individualized) 05/18/2025 113 by Kylee Gonzalez RN Outcome: Ongoing, Progressing Flowsheets (Taken 05/18/2025 0900) Patient/Family-Specific Goals (Include Timeframe): Pt will remain free from falls/injury throughoutthis shift. Individualized Care Needs: Safety Anxieties, Fears or Concerns: None stated 05/18/2025 113 by Kylee Gonzalez RN Outcome: Ongoing, Progressing Flowsheets (Taken 05/18/2025 0900) Patient/Family-Specific Goals (Include Timeframe): Pt will remain free from falls/injury throughoutthis shift. Individualized Care Needs: Safety Anxieties, Fears or Concerns: None stated Goal: Absence of Hospital-Acquired Illness or Injury 05/18/2025 113 by Kylee Gonzalez RN Outcome: Ongoing, Progressing 05/18/2025 1130 by Kylee Gonzalez RN Outcome: Ongoing, Progressing Goal: Optimal Comfort and Wellbeing 05/18/2025 1131 by Kylee Gonzalez RN Outcome: Ongoing, Progressing 05/18/2025 1130 by Kylee Gonzalez RN Outcome: Ongoing, Progressing Problem: Fall Injury Risk Goal: Absence of Fall and Fall-Related Injury 05/18/2025 1131 by Kylee Gonzalez RN Outcome: Ongoing, Progressing 05/18/2025 1130 by Kylee Gonzalez RN Outcome: Ongoing, Progressing Intervention: Identify and Manage Contributors Flowsheets Taken 05/16/20251948 by Ivan Slaughter RN Self-Care Promotion: independence encouraged Taken 05/06/20251999 by Judd Zavaleta RN Medication Review/Management: medications reviewed Problem: Infection Goal: Absence of Infection Signs and Symptoms 05/18/2025 1131 by Kylee Gonzalez RN Outcome: Ongoing, Progressing 05/18/2025 1130 by Kylee Gonzalez RN Outcome: Ongoing, Progressing Intervention: Prevent or Manage Infection Flowsheets Taken 05/18/2025 0800 by Kylee Gonzalez RN Isolation Precautions: precautions maintained Taken 05/16/20251948 by Ivan Slaughter RN Infection Management: aseptic technique maintained Fever Reduction/Comfort Measures: lightweight bedding lightweight clothing Problem: Mobility Impairment Goal: Optimal Mobility 05/18/2025 1131 by Kylee Gonzalez RN Outcome: Ongoing, Progressing 05/18/2025 1130 by Kylee Gonzalez RN Outcome: Ongoing, Progressing Intervention: Optimize Mobility Flowsheets Taken 05/18/2025 0800 by Kylee Gonzalez RN Activity Management: activity encouraged activity adjusted per tolerance previous patient education reinforced Taken 05/17/20251999 by Ivan Slaughter RN Assistive Device Utilized: lift device Taken 05/16/20251948 by Ivan Slaughter RN Positioning/Transfer Devices: pillows Problem: Mobility Impairment Goal: Optimal Mobility 05/18/2025 1131 by Kylee Gonzalez RN Outcome: Ongoing, Progressing 05/18/2025 1130 by Kylee Gonzalez RN Outcome: Ongoing, Progressing Problem: Diabetes Goal: Optimal Coping 05/18/2025 1131 by Kylee Gonzalez RN Outcome: Ongoing, Progressing 05/18/2025 1130 by Kylee Gonzalez RN Outcome: Ongoing, Progressing Intervention: Support Wellbeing and Self-Management Success Flowsheets Taken 05/17/20252152 by Ivan Slaughter RN Supportive Measures: active listening utilized self-care encouraged Taken 05/16/20251948 by Ivan Slaughter RN Family/Support System Care: self-care encouraged Goal: Optimal Functional Ability 05/18/2025 1131 by Kylee Gonzalez RN Outcome: Ongoing, Progressing 05/18/2025 1130 by Kylee Gonzalez RN Outcome: Ongoing, Progressing Goal: Blood Glucose Level Within Target Range 05/18/2025 1131 by Kylee Gonzalez RN Outcome: Ongoing, Progressing 05/18/2025 1130 by Kylee Gonzalez RN Outcome: Ongoing, Progressing Intervention: Optimize Glycemic Control Flowsheets (Taken 05/16/20251948 by Ivan Slaughter, LOLA) Hyperglycemia Management: blood glucose monitored Goal: Minimize Hypoglycemia Risk 05/18/2025 1131 by Kylee Gonzalez RN Outcome: Ongoing, Progressing 05/18/2025 1130 by Kylee Gonzalez RN Outcome: Ongoing, Progressing Intervention: Minimize and Manage Hypoglycemia Flowsheets (Taken 05/15/2025 1148 by Santy Garcia, RN) Hypoglycemia Management: blood glucose monitored Problem: Comorbidity Management Goal: Maintenance of Asthma Control 05/18/2025 1131 by Kylee Gonzalez RN Outcome: Ongoing, Progressing 05/18/2025 1130 by Kylee Gonzalez RN Outcome: Ongoing, Progressing Goal: Maintenance of Behavioral Health Symptom Control 05/18/2025 1131 by Kylee Gonzalez RN Outcome: Ongoing, Progressing 05/18/2025 1130 by Kylee Gonzalez RN Outcome: Ongoing, Progressing Goal: Maintenance of COPD Symptom Control 05/18/2025 1131 by Kylee Gonzalez, RN Outcome: Ongoing, Progressing 05/18/2025 1130 by Kylee Gonzalez RN Outcome: Ongoing, Progressing Goal: Blood Glucose Level Within Target Range 05/18/2025 1131 by Kylee Gonzalez RN Outcome: Ongoing, Progressing 05/18/2025 1130 by Kylee Gonzalez RN Outcome: Ongoing, Progressing Goal: Maintenance of Heart Failure Symptom Control 05/18/2025 1131 by Kylee Gonzalez, RN Outcome: Ongoing, Progressing 05/18/2025 1130 by Kylee Gonzalez, RN Outcome: Ongoing, Progressing Goal: Blood Pressure in Desired Range 05/18/2025 1131 by Kylee Gonzalez, RN Outcome: Ongoing, Progressing 05/18/2025 1130 by Kylee Gonzalez, RN Outcome: Ongoing, Progressing Goal: Maintenance of Osteoarthritis Symptom Control 05/18/2025 1131 by Kylee Gonzalez, RN Outcome: Ongoing, Progressing 05/18/2025 1130 by Kylee Gonzalez, RN Outcome: Ongoing, Progressing Goal: Bariatric Home Regimen Maintained 05/18/2025 1131 by Kylee Gonzalez, RN Outcome: Ongoing, Progressing 05/18/2025 1130 by Kylee Gonzalez, RN Outcome: Ongoing, Progressing Goal: Maintenance of Seizure Control 05/18/2025 1131 by Kylee Gonzalez, RN Outcome: Ongoing, Progressing 05/18/2025 1130 by Kylee Gonzalez, RN Outcome: Ongoing, Progressing Problem: Wound Goal: Optimal Coping 05/18/2025 1131 by Kylee Gonzalez, RN Outcome: Ongoing, Progressing 05/18/2025 1130 by Kylee Gonzalez RN Outcome: Ongoing, Progressing Goal: Optimal Pain Control and Function 05/18/2025 1131 by Kylee Gonzalez, RN Outcome: Ongoing, Progressing 05/18/2025 1130 by Kylee Gonzalez, LOLA Outcome: Ongoing, Progressing Intervention: Prevent or Manage Pain Flowsheets Taken 05/18/2025 1131 by Kylee Gonzalez, RN Sleep/Rest Enhancement: consistent schedule promoted awakenings minimized family presence promoted regular sleep/rest pattern promoted natural light exposure provided Taken 05/17/2025 2228 by Ivan Slaughter RNbar and filler assembler Interventions: medication (see MAR) Goal: Optimal Wound Healing 05/18/2025 1131 by Kylee Gonzalez RN Outcome: Ongoing, Progressing 05/18/2025 1130 by Kylee Gonzalez RN Outcome: Ongoing, Progressing Intervention: Promote Wound Healing Flowsheets (Taken 05/18/2025 1131) Sleep/Rest Enhancement: consistent schedule promoted awakenings minimized family presence promoted regular sleep/rest pattern promoted natural light exposure provided Goal: Optimal Functional Ability 05/18/2025 1131 by Kylee Gonzalez RN Outcome: Ongoing, Progressing 05/18/2025 1130 by Kylee Gonzalez RN Outcome: Ongoing, Progressing Goal: Absence of Infection Signs and Symptoms 05/18/2025 1131 by Kylee Gonzalez RN Outcome: Ongoing, Progressing 05/18/2025 1130 by Kylee Gonzalez RN Outcome: Ongoing, Progressing Goal: Improved Oral Intake 05/18/2025 1131 by Kylee Gonzalez RN Outcome: Ongoing, Progressing 05/18/2025 1130 by Kylee Gonzalez RN Outcome: Ongoing, Progressing Intervention: Promote and Optimize Oral Intake Flowsheets (Taken 05/15/2025 1148 by Santy Garcia, LOLA) Oral Nutrition Promotion: physical activity promoted Nutrition Interventions: food preferences provided Goal: Skin Health and Integrity 05/18/2025 1131 by Kylee Gonzalez RN Outcome: Ongoing, Progressing 05/18/2025 1130 by Kylee Gonzalez RN Outcome: Ongoing, Progressing Intervention: Optimize Skin Protection Flowsheets Taken 05/18/2025 0900 by Kylee Gonzalez RN Head of Bed (HOB) Positioning: HOB elevated Taken 05/18/2025 0800 by Kylee Gonzalez RN Activity Management: activity encouraged activity adjusted per tolerance previous patient education reinforced Taken 05/17/20252152 by Ivan Slaughter RN Pressure Reduction Techniques: frequent weight shift encouraged Taken 05/13/20251999 by Asiya Nix RN Pressure Reduction Devices: positioning supports utilized Problem: Pain Acute Goal: Optimal Pain Control and Function 05/18/2025 1131 by Kylee Gonzalez RN Outcome: Ongoing, Progressing 05/18/2025 1130 by Kylee Gonzalez RN Outcome: Ongoing, Progressing Intervention: Optimize Psychosocial Wellbeing Flowsheets Taken 05/17/2025 215 by Ivan Slaughter RN Supportive Measures: active listening utilized self-care encouraged Taken 05/15/2025 1148 by Santy Garcia, RN Diversional Activities: television Intervention: Develop Pain Management Plan Flowsheets (Taken 05/17/20252227 by Ivan Slaughter RN) Pain Management Interventions: medication (see MAR) Intervention: Prevent or Manage Pain Flowsheets Taken 05/18/2025 1131 by Kylee Gonzalez RN Sleep/Rest Enhancement: consistent schedule promoted awakenings minimized family presence promoted regular sleep/rest pattern promoted natural light exposure provided Taken 05/06/20251999 by Judd Zavaleta RN Medication Review/Management: medications reviewed Problem: Self-Care Deficit Goal: Improved Ability to Complete Activities of Daily Living 05/18/2025 1131 by Kylee Gonzalez RN Outcome: Ongoing, Progressing 05/18/2025 1130 by Kylee Gonzalez RN Outcome: Ongoing, Progressing Intervention: Promote Activity and Functional [place] Flowsheets Taken 05/18/2025 1131 by Kylee Gonzalez RN Activity Assistance Provided: assistance, 2 people Taken 05/16/2025 194 by Ivan Slaughter RN Self-Care Promotion: independence encouraged Taken 05/15/2025 1148 by Santy Garcia, RN Adaptive Equipment Use: used independently * Discharge Summary - Wily Goyal DO - 05/18/2025 9:26 AM EST Images from the original note were not included. Hospitalization Admit Date/Time: 04/27/2025 9:29 PM Admitting Attending: Greg Lee Discharge Date: 05/18/25 Discharge Attending Physician: Wily Goyal DO PCP name and Address: Malcolm Hayward APRN [address] [place] [address] / [place] [address] Brief History of Present Illness 49 M h/o morbid obesity and T2DM on U500 admitted for R diabetic foot ulcer with osteomyelitis now s/p R 5th metatarsal amputation on 05/01 with ID and vascular. Surgical pathology negative for OM, off antibiotics being dc to rehab. Things to f/u: I decreased his bisoprolol from daily to 10 daily yday. If his HR remains controlled, this could bereduced further. Urology for Barber exchanges if indicated Wound vac to R foot laterally Monitor renal function w his chronic high dose Bumex which could be reduced somewhat as he is showing adequate volume control Detailed Hospital Course 49-M h/o morbid obesity, T2DM, diabetic neuropathy, congestive heart failure, HTN, COPD, depression, and recurrent urinary retention, admitted for worsening R diabetic foot ulcer with underlying osteomyelitis and pyogenic inflammation of bone. Diabetic Foot Ulcer with Osteomyelitis and Pyogenic Inflammation of Bone He was admitted for a chronic R lateral diabetic foot ulcer with exposed bone and black discoloration, present for approximately 3 months and worsening prior to admission. Imaging revealed a soft tissue defect, open comminuted fracture, and irregularity of the right 5th metatarsal head, consistent with osteomyelitis; no discrete abscess was identified. He underwent R 5th toe ray amputation on 05/01 for chronic OM, with intraoperative findings of significant venous hypertension and destruction of the 5th metatarsal head; surgical pathology of the margin was negative for acute osteomyelitis. A wound vac was placed on 05/03, with changes scheduled every two days; the surgical site remained clean, dry, and intact, with no evidence of infection or ischemia. He remained NWB RLE throughout the admission, with plans for vascular surgery follow-up in one month. He was medically stable for discharge to acute rehab at the end of the hospitalization. Type 2 Diabetes Mellitus and Diabetic Neuropathy His diabetes was poorly controlled on admission, with a recent HbA1c of 8.9 and persistent hyperglycemia (BG frequently >300 mg/dL). He was transitioned to U500 insulin, with ongoing titration andeventual TID dosing for persistent hyperglycemia; mealtime lispro was added and titrated as needed,and correctional insulin was used for resistant hyperglycemia. He continued to use Dexcom G7 CGM, and endocrinology provided daily recommendations for insulin adjustment, currently on 270/90/270. Non-insulin agents included metformin and Ozempic, with Ozempic restarted and titrated during admission. He experienced no hypoglycemic events during admission. Diabetes education was completed prior to discharge, and close monitoring by the rehab facility provider was recommended due to anticipated changes in glycemic patterns and insulin requirements with changes in diet and activity level. Diabetic neuropathy contributed to impaired sensation and functional mobility, with numbness reported in the feet by the ankle and below. Postoperative Wound Care and Rehabilitation Needs Following amputation, wound vac therapy was maintained without complications aside from one episodeof increased bloody output. He was recommended for acute inpatient rehabilitation due to significant decline in functional mobility and ADL performance, requiring maximal assistance for transfers andlower body dressing, and unable to stand or ambulate while maintaining non-weight bearing status onthe right lower extremity. He was accepted for discharge to [facility] rehab facility. Urinary Retention and Recurrent UTI He had chronic urinary retention managed with an indwelling Barber catheter and recurrent UTIs, including recent ESBL E. coli treated prior to admission. Urology was consulted for ongoing retention, and finasteride was added during admission; tamsulosin was continued. No urologic intervention was indicated during admission, and outpatient follow-up with urologist planned. Barber exchanges recommended every 4-6 weeks. Morbid Obesity and Related Complications His BMI remained >70 throughout admission, complicating all aspects of care including wound healing, mobility, and insulin resistance. He had a history of failed gastric sleeve procedure. Cardiopulmonary and Other Chronic Conditions He had stable congestive heart failure (EF 50-55%), managed with bumetanide and spironolactone. Paroxysmal atrial fibrillation was managed with rivaroxaban and diltiazem. Hypertension and hyperlipidemia were managed with bisoprolol and atorvastatin. COPD and QUINN were managed with inhalers and nocturnal oxygen; he reported using CPAP at home but declined to use it in the hospital. Depression, insomnia, and chronic low back pain were managed with home medications and supportive care; trazodone was discontinued due to prolonged QTc. He occasionally required oxycodone for tailbone pain. Discharge Planning and Follow-up He was medically stable for discharge to [facility] rehab facility, with recommendations for close follow-up with vascular surgery and wound care, endocrinology for diabetes management, and urology for urinary retention. Surgeries and Procedures Procedures performed in this encounter Procedures Case Request Operating Room: AMPUTATION,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 4th AMPUTATION,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 4th (Right) Medication List .. albuterol 108 (90 Base) MCG/ACT inhaler Inhale 2 puffs every 4 to 6 hours as needed for wheezing or shortness of breath. atorvastatin 40 MG tablet Commonly known as: Lipitor Take 1 tablet by mouth nightly. bisoprolol 5 MG tablet Commonly known as: Zebeta Take 1 tablet by mouth 2 times a day. bumetanide 2 MG tablet Commonly known as: Bumex Take 2 tablets by mouth 3 times a day. cariprazine 3 MG capsule Commonly known as: Vraylar Take 1 capsule by mouth daily. dilTIAZem CD 120 MG 24 hr capsule Commonly known as: Cardizem CD Take 1 capsule by mouth daily. ferrous sulfate 324 MG tablet delayed-release Take 1 tablet by mouth every other day. Do not crush, chew, or split. Start taking on: May 19, 2025 gabapentin 600 MG tablet Commonly known as: Neurontin Take 1 tablet by mouth 3 times a day. HYDROcodone-acetaminophen 10-325 MG tablet Commonly known as: Courtland Take 1 tablet by mouth every 6 hours as needed for severe pain for up to 3 days. * insulin regular 100 UNIT/ML injection vial Commonly known as: HumuLIN R,NovoLIN R Inject 250 Units under the skin 2 times a day with meals. * insulin regular 500 UNIT/ML CONCENTRATED injection vial Commonly known as: HumuLIN R U-500 Inject 90 Units under the skin daily before lunch. metFORMIN 1000 MG tablet Commonly known as: [...] Repeat in other nostril if symptoms continue omeprazole [address] capsule Commonly known as: PriLOSEC Take 1 capsule by mouth 2 times a day. ondansetron ODT 8 MG disintegrating tablet Commonly known as: Zofran-ODT Dissolve 1 tablet on the tongue every 12 hours as needed for nausea or vomiting. Ozempic (0.25 or 0.5 MG/DOSE) 2 MG/3ML solution pen-injector Generic drug: Semaglutide(0.25 or 0.5MG/DOS) Inject 0.25 mg under the skin 1 time per week. Pen [place] 31G X 5 MM mis USE TO INJECT INSULIN 3 TIMES PER DAY rivaroxaban 20 MG tablet Commonly known as: Xarelto Take 1 tablet by mouth daily. spironolactone 50 MG tablet Commonly known as: Aldactone Take 2 tablets by mouth daily. stomahesive powder powder Apply 1 Application topically as needed (as needed). May apply powder over washed areas, and on topof protectant cream. May be mixed together for application. tamsulosin 0.4 MG 24 hr capsule Commonly known as: Flomax Take 1 capsule by mouth daily. venlafaxine XR 150 MG 24 hr capsule Commonly known as: Effexor-XR Take 1 capsule by mouth daily. * This list has 2 medication(s) that are the same as other medications prescribed for you. Read thedirections carefully, and ask your doctor or other care provider to review them with you. Where to Get Your Medications These medications were sent to [facility] [place] [address] gabapentin 600 MG tablet HYDROcodone-acetaminophen 10-325 MG tablet insulin regular 100 UNIT/ML injection vial insulin regular 500 UNIT/ML CONCENTRATED injection vial Information about where to get these medications is not yet available Ask your nurse or doctor about these medications ferrous sulfate 324 MG tablet delayed-release Discharge Diagnosis Medical Problems Active and Resolved Hospital Problems Hospital Morbid obesity ([facility]) Hypertension Type 2 diabetes Overview Signed 04/14/2022 4:39 PM by Provider, Administrative Regulatory Update April 2022 Neuropathy CHF (congestive heart failure) COPD (chronic obstructive pulmonary disease) Depression Diabetic neuropathy Insomnia Lower back pain S/P gastric sleeve procedure * (Principal) Diabetic foot ulcer 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 Pertinent Physical Exam At Time of Discharge Physical Exam General: NAD HEENT: NC/AT, EOMI Heart: regular Lungs: nonlabored Abdomen: soft, nd, nt Ext: mild edema Skin: warm, dry Psych: good eye contact Neuro: A&Ox3, moves all ext : Barber Discharge Disposition/Condition Disposition: Rehab facility (specify) Condition: Stable (s/sx potential problems absent or manageable) I spent >30 minutes of patient care and instruction time in preparation for this discharge. * Progress Notes - Chayo Jennings RN - 05/18/2025 9:10 AM EST Case Management Discharge Note Gonzalo Smalls 49 y.o. male CSN: [id number] Admission: 04/27/2025 9:29 PM Primary Problem: Diabetic foot ulcer Primary Dye Machine Operator: Primary Caregiver: Self Assistance Available at Discharge: Availability of Care Givers (#Hours): 24 hours Housing Circumstances-Z Codes: Housing Circumstances (select all that apply): Low Income (101-300% Federal Poverty Guidlines) - Z596 Discharge Facility/Level of Care Needs: Discharge Facility/Level of Care Needs: 62-Rehab facilty ([place]) Patient's Choice of Community Agency(s): Patient's Choice of Community Agency(s): [facility] Patient/Family Anticipated Services at Transition: Patient/Family Anticipated Services at Transition: rehabilitation services DME/Equipment Needed after Discharge: Equipment Currently Used at Home: cane, straight, walker, rolling Equipment Needed After Discharge: none (pt is d/c to rehab) Readmission Within the Last 30 Days: Readmission Within the Last 30 Days: no previous admission in last 30 days Medicare Documentation: Medicare Second Notice?: Yes Date Second Notice Completed: 05/18/25 Time Second Notice Completed: 0800 Medicare Second Notice Recieved By: Gonzalo Smalls- the patient Follow-up: [facility] [address] Floor [address] [facility] [id number] Primary care provider (PCP) Malcolm Hayward, FITTING ROOM OPERATOR [address] [facility] [place] [address] Discharge Transportation: Transportation Anticipated: medical transport Transportation Home at Discharge: Medical Transport Has discharge transport been arranged?: Yes What day is the transport expected?: 05/18/25 What time is the transport expected?: 929 Follow Up Transport: Transportation Needed to Follow up Appoinments: Family/Friend will Provide Additional Comments: Discussed with multidsicplinary team, per attending phyisician dr. Goyal pt is medically ready to d/c. Pt was referred and accepted by Merly Espinoza RN CM spoke with Araceli in admission who confirmed pt's acceptance #[phone]. Pt updated and in agreement with d/c plan. Team and bedside RN updated. Bedside RN to call report to #[phone]. Araceli has access to [employer] and will get d/c s [facility] that way. Script for controlled medication to be sent to [email or web address] [place]. Ambulance to transport the pt is arranged for 9:30AM on this day. There is no other d/c needs reported or identified at this time. RN CM will remain availble and assist as needed. Chayo Jennings RN * Care Plan - Ivan Slaughter RN - 05/17/2025 9:55 PM EST Problem: Skin Injury Risk Increased Goal: Skin Health and Integrity Outcome: Ongoing, Progressing Intervention: Optimize Skin Protection Flowsheets Taken 05/17/20252152 Pressure Reduction Techniques: frequent weight shift encouraged Taken 05/17/20251999 Activity Management: activity adjusted per tolerance Head of Bed (HOB) Positioning: HOB elevated Problem: Adult Inpatient Plan of Care Goal: Plan of Care Review Outcome: Ongoing, Progressing Flowsheets (Taken 05/17/20252152) Progress: improving Plan of Care Reviewed With: patient Goal: Patient-Specific Goal (Individualized) Outcome: Ongoing, Progressing Goal: Absence of Hospital-Acquired Illness or Injury Outcome: Ongoing, Progressing Goal: Optimal Comfort and Wellbeing Outcome: Ongoing, Progressing Problem: Fall Injury Risk Goal: Absence of Fall and Fall-Related Injury Outcome: Ongoing, Progressing Problem: Infection Goal: Absence of Infection Signs and Symptoms Outcome: Ongoing, Progressing Problem: Mobility Impairment Goal: Optimal Mobility Outcome: Ongoing, Progressing Intervention: Optimize Mobility Flowsheets (Taken 05/17/20251999) Activity Management: activity adjusted per tolerance Assistive Device Utilized: lift device Problem: Mobility Impairment Goal: Optimal Mobility Outcome: Ongoing, Progressing Problem: Diabetes Goal: Optimal Coping Outcome: Ongoing, Progressing Goal: Optimal Functional Ability Outcome: Ongoing, Progressing Goal: Blood Glucose Level Within Target Range Outcome: Ongoing, Progressing Goal: Minimize Hypoglycemia Risk Outcome: Ongoing, Progressing Problem: Comorbidity Management Goal: Maintenance of Asthma Control Outcome: Ongoing, Progressing Goal: Maintenance of Behavioral Health Symptom Control Outcome: Ongoing, Progressing Goal: Maintenance of COPD Symptom Control Outcome: Ongoing, Progressing Goal: Blood Glucose Level Within Target Range Outcome: Ongoing, Progressing Goal: Maintenance of Heart Failure Symptom Control Outcome: Ongoing, Progressing Goal: Blood Pressure in Desired Range Outcome: Ongoing, Progressing Goal: Maintenance of Osteoarthritis Symptom Control Outcome: Ongoing, Progressing Goal: Bariatric Home Regimen Maintained Outcome: Ongoing, Progressing Goal: Maintenance of Seizure Control Outcome: Ongoing, Progressing Problem: Wound Goal: Optimal Coping Outcome: Ongoing, Progressing Intervention: Support Patient and Family Response Flowsheets (Taken 05/17/20252152) Supportive Measures: active listening utilized self-care encouraged Goal: Optimal Pain Control and Function Outcome: Ongoing, Progressing Goal: Optimal Wound Healing Outcome: Ongoing, Progressing Goal: Optimal Functional Ability Outcome: Ongoing, Progressing Goal: Absence of Infection Signs and Symptoms Outcome: Ongoing, Progressing Goal: Improved Oral Intake Outcome: Ongoing, Progressing Goal: Skin Health and Integrity Outcome: Ongoing, Progressing Problem: Pain Acute Goal: Optimal Pain Control and Function Outcome: Ongoing, Progressing Intervention: Develop Pain Management Plan Flowsheets (Taken 05/17/20251999) Pain Management Interventions: pain management plan reviewed with patient/caregiver pillow support provided position adjusted rest Problem: Self-Care Deficit Goal: Improved Ability to Complete Activities of Daily Living Outcome: Ongoing, Progressing * Progress Notes - Joceline King - 05/17/2025 11:58 AM EST Occupational Therapy Treatment Patient Name: Gonzalo Smalls Today's Date: 05/17/2025 OT Discharge Recommendations: Acute rehab Equipment Recommended: Defer to facility Subjective I'm nervous about leaving tomorrow. I want to go, I'm just nervous. Participants in Care Family/Caregiver Present: No Presentation Oxygen Therapy: Supplemental oxygen O2 Flow Rate (L/min): 2 L/min Lines and Tubes: Telemetry, Wound vac, Urinary catheter, PICC Pre-Session: Supine, Head of bed elevated, Lines intact Pre-Session Comments: RN consented to treatment Post-Session: Supine, Head of bed elevated, Lines intact, RN notified, Call light in reach Post-Session Comments: Pt positioned for comfort, all needs in reach. Precautions Right Lower Extremity Weight Bearing Status: Non-Weight Bearing Medical Precautions: Fall precautions Objective Pain No pain reported Delirium Screening RASS: Alert and calm Confusion Assessment Method-ICU (CAM-ICU/PCAM-ICU) Feature 3: Altered Level of Consciousness: Negative Cognition Cognition Overall Cognitive Status: Within Functional Limits Arousal/Alertness: Appropriate responses to stimuli Mood/Behavior: Alert Orientation Level: Oriented X4 Single Step Commands: Consistently, 100% of the time Multi-Step Commands: Consistently, 100% of the time Method of Communication: Verbal Safety Judgment: Decreased awareness of need for assistance Awareness of Errors: Assistance required to identify errors made, Assistance required to correct errors made Deficit Awareness: Decreased awareness of deficits Attention Span: Attends with cues to redirect Bed Mobility Bed Mobility Exam: Scooting/Bridging Level of Dundy: Contact guard Physical/Nonphysical Assist: Verbal Cues, Minimal cues Assistive Device: Overhead trapeze Bed Mobility Exam: Supine to Sit Level of Dundy: Minimum assist (75% patient's effort) Physical/Nonphysical Assist: HOB elevated, Verbal Cues, Minimal cues Assistive Device: Overhead trapeze Bed Mobility Exam: Sit to Supine Level of Dundy: Stand-by assist Physical/Nonphysical Assist: Verbal Cues, Minimal cues Assistive Device: Overhead trapeze Transfers Transfer Exam: Sit to stand Level of Dundy: Maximum assist (25% patient's effort) Physical/Nonphysical Assist: Verbal Cues, Nonverbal cues (demo/gestures), Additional assist utilized for safety, Set-up required, Minimal cues Assistive Device: Walker, rolling (bariatric) Transfer Exam: Stand to Sit Level of Dundy: Maximum assist (25% patient's effort) Physical/Nonphysical Assist: Verbal Cues, Nonverbal cues (demo/gestures), Additional assist utilized for safety, Minimal cues Assistive Device: Walker, rolling (bariatric) Self-Care Interventions Self Care/Home Management (ADLs) Time Entry: 28 Therapist set up environment to facilitate safe mobility. Pt completed supine to sit EOB with Min A. Pt sat EOB for 8 min to acclimate to upright position and reported dizziness that subsided. Pt attempted sit to stand via RW with Max A, however was unable to complete full upright due to weakness. Pt sat and rest and bed was elevated. Pt completed sit to stand x 3 reps via Rw with Max A and was able to achieve full upright position and maintain NWB on R LE. Pt was able to stand for 30 sec the first time and 15 sec the second and third time to increase standing balance and endurance for self care tasks. Pt reported dizziness after each stand and required prolonged rest breaks with cues for PLB and was educated on not holding his breath when completing tasks. Pt was agreeable to complete grooming tasks sitting EOB, however reported increased dizziness and needed to lay back down. Pt complete sit to supine with SBA and was positioned in the bed with pillows for comfort. UE Dressing UE Dressing Level of Assistance: Setup, SBA UE Dressing Where Assessed: Edge of bed UE Dressing Interventions: Pt doffed hospital gown and donned clean gown with s/u Lower Extremity Dressing Sock Level of Assistance: Dependent LE Dressing Where Assessed: Edge of bed LE Dressing Interventions: Pt required Dep A to don L non skid sock sitting EOB. Therapeutic Exercise (10 minutes) Pt reviewed his HEP and completed BUE exercises of shoulder flex/ext, Abd/Add, horizontal Abd/Add, and elbow flex/ext x 10 reps with blue theraband to increase strength for functional tasks and transfers. Pt required verbal and visual cues for proper technique with rest break due to fatigue. Assessment Pt demonstrates significant occupational/functional limitation this session with decreased activitytolerance, increased fatigue, and decreased standing balance, however was able to maintain NWB on RLE throughout intervention. Pt requires increased verbal cues, time, and physical assistance to complete simple self care tasks, functional transfers, and ADLs. Pt would benefit from skilled OT intervention to address progress towards improved activity tolerance and safety for increased safety and independence across occupational performance. Pt lives with his and daughter and was independent with mobility before his hospitalization. Pt required some assistance from his with self caretasks. Pt is now requiring Max A x 2 for sit to stand from EOB and is unable to take steps as he isNWB on his R LE. Pt would benefit from acute inpatient rehab, as the patient requires the active and ongoing therapeutic interventions of multiple therapy disciplines, one of which must be physical or occupational therapy; the patient is able to participate in 3 hours of therapy 5 days per week; the patient will be expected to actively participate in and benefit significantly from the intensive rehabilitation program, which will be of practical value to improve the patient's functional capacityor adaptation to impairments in a reasonable period; the patient may require physician supervision by a rehabilitation physician three times weekly and 24-hour nursing; the patient requires an intensive and coordinated interdisciplinary approach to providing rehabilitation; the patient's medical and rehab needs cannot be met at a lower level of care, such as a subacute rehab facility, home health, or outpatient therapy. . OT Recommendations Discharge Destination: Acute rehab Discharge Equipment: Defer to facility Plan Continue OT plan of care Goals OT GOAL DETAILS Goal Established Date Time Frame Goal Status OT Goal 1: Pt will complete sit <> stand and BSC transfers with SBA using AE PRN and maintaining NWB RLE status 04/28/25 2 weeks Goal not met, Goal ongoing OT Goal 2: Pt will complete lower body dressing independently 04/28/25 2 weeks Goal discontinued OT Goal 3: Pt will verbalize/demonstrate independence with UE HEP to facilitate increased strength and endurance for engaging in functional tasks 04/28/25 2 weeks Goal not met, Goal ongoing OT Goal 4: Pt will perform lower body dressing tasks (including pants and non- skid socks) with mod A using AE PRN. 05/12/25 Written by Joceline King on 05/17/25 at 3:09 PM. * Progress Notes - Corey Lizarraga IV - 05/17/2025 11:56 AM EST PHYSICAL THERAPY TREATMENT PATIENT DATA Patient Name Gonzalo Smalls Session Date 05/17/2025 Total Treatment Time 39 min PT Discharge Recommendations Acute rehab Equipment Recommendations Defer to facility MOBILITY GUIDELINES Mobility Protocol: General - Mobility Guidelines Extremity Precautions: No Extremity Precautions Other mobility precautions: No other precautions required PRECAUTIONS Weight Bearing Precautions (if applicable) Right Lower Extremity Weight Bearing Status: Non-Weight Bearing ROM Restrictions (if applicable) Medical Precautions Medical Precautions: Fall precautions HOME LIVING/SET-UP Lives With Spouse (and 15 yo daughter) Home Type House Home Equipment Rolling walker, Cane (primarily cane) Home Layout One level, Stairs to enter with rails 3 Bathroom Layout Tub/Shower combo, Tub transfer bench Standard Accessible Additional Comments Pt reports he does not drive at baseline due poor sensation in feet. Pt has access to / assistance at discharge. PRIOR LEVEL OF FUNCTION Receives help from Spouse Level of Mobility Mobility Dundy Independent gait with device History of Falls ADL Performance Bathing: Needs assist Upper Body Dressing: Needs assist Lower Body Dressing: Needs assist Grooming: Needs assist Toileting: Independent Eating: Independent Home Management Skills: Needs assist PRESENTATION Oxygen Supplemental oxygen Nasal cannula 2 L/min Lines and Tubes telemetry Urethral Catheter (Active) PICC Single Lumen 04/25/25 Left (Active) Negative Pressure Wound Therapy Toe (Comment which one) Anterior;Right (Active) Pre-Session Supine, Head of bed elevated, Lines intact RN cleared patient for Physical Therapy treatment session. Post-Session Supine, Head of bed elevated, Lines intact, RN notified, Call light in reach Pt positioned for comfort, all needs in reach. Patient positioned for comfort and pressure relief at conclusion of therapy session. Bracing (if applicable) SUBJECTIVE PARTICIPANTS IN CARE Patient/Caregiver Comments Pt has NOT been: * Ambulating in-room distances * Transferring Bed <> Chair since last PT treatment. Pt reports compliance with the PT-provided HEP that was earlier provided. Patient agreeable to Physical Therapy treatment session. I'm nervous about leaving tomorrow. I want to go, I'm just nervous. Visitors Present No Fpga Engineer (if applicable) Fpga Engineer: Not Applicable OBJECTIVE PAIN Pt was without c/o pain at the beginning of this session and throughout the PT treatment. Prior to MANAGER TITLE's departure: * rest was provided * patient was positioned for comfort * pillow support was provided DELIRIUM SCREENING RASS: Alert and calm Confusion Assessment Method-ICU (CAM-ICU/PCAM-ICU) Feature 3: Altered Level of Consciousness: Negative INTERVENTIONS THERAPEUTIC ACTIVITY Treatment Minutes 25 Interventions Pt performed functional mobility and therapeutic activity training with emphasis on improving activity tolerance, balance, and biomechanics, as patient exhibits deconditioning from baseline. Refer to pertinent sections for intervention details. Skilled monitoring of vitals performed throughout session. Time required for line management and environmental set-up to allow for safety and access to areas of treatment space. The following sections below give further details on interventions provided by this therapist: BED MOBILITY Level of Dundy Physical/Non- physical Assist Adaptive Equipment Utilized Rolling/ Turning Contact guard Verbal Cues, Set-up required, Minimal cues Bed rails, Other (SHOEBLACK) Scooting/ Bridging Contact guard Verbal Cues, Minimal cues Overhead trapeze Supine to Sit Minimum assist (75% patient's effort) HOB elevated, Verbal Cues, Minimal cues Overhead trapeze Sit to Supine Stand-by assist Verbal Cues, Minimal cues Overhead trapeze Interventions Skilled intervention required for line management, monitoring vital signs, and pt preparation for mobility tasks. Consistent verbal and tactile cues required for initiation, sequencing,and safety with functional tasks. Verbal cues provided for hand/body positioning and sequencing to/from EOB. Increased time required for sequencing Pt was able to sit to the EOB for a total of ~ 20 minutes during this session. With seated breaks between standing trials. TRANSFERS Level of Dundy Physical/Non- physical Assist Adaptive Equipment Utilized Sit to Stand Maximum assist (25% patient's effort) Verbal Cues, Nonverbal cues (demo/gestures), Additional assist utilized for safety, Set-up required, Minimal cues Walker, rolling (bariatric) Stand to sit Maximum assist (25% patient's effort) Verbal Cues, Nonverbal cues (demo/gestures), Additional assist utilized for safety, Minimal cues Walker, rolling (bariatric) Bed to Chair Toilet Transfer Shower Transfer Interventions Transfers performed x 4 each from EOB. Pt able to increase cleareance from EOB with each respective stand attempt from aprox. 25% with initial stand and improved to 100% of upright while successful maintaining NWB on RLE with each additional stand. Height of the bed was elevated to improve his ability to reach full upright stance. Further progression limited by fatigue,strength deficits and increased dizziness reported as pt reports having issues with afib and has limited endurance. Pt also tends to hold his breath during mobilization and required frequent cueing to breath and was educated on performing pursed lip breathing. During seated rest breaks pt was advised on keeping his eyes open and to focus on a point to improve dizziness recovery. Increased time required betweenattempts for recovery 2/2 to fatigue/dizziness. Verbal cues provided for hand/foot placement, sequencing, weight shifting, appropriate use of SHOEBLACK, and maintaining NWB on RLE. Tactile cues provided to assist in sequencing and weight shifting. AMBULATION Level of Dundy Distance Adaptive Equipment Utilized Ambulation N/A N/A N/A Comments Unable to side step or progress to forward hop step at bariatric RW level due to inabilityto maintain prolonged standing position while maintaining NWB in RLE. BALANCE Postural Appearance Posture: Within Functional Limits, Forward head Level of Dundy Balance Support Activities Static Sit Standby assist No upper extremity support, Feet supported Sitting EOB for ~20 minutes during this session. Dynamic Sit Contact guard No upper extremity support, Feet supported Anterior/Posterior weight shifts, Lateral weight shifts Static Stand Maximum assistance Right upper extremity support, Left upper extremity support (isabella RW) Pt was able to perform 4 total standing trials but only able to reach full upright stance x 3 trials and had a Max standing time of ~ 30 second during 2nd stand. Pt with decreased time due to fatigue and dizziness reported during stance. ~ 15 seconds with last 2 standing trials. Dynamic Stand Interventions Skilled intervention required for line management, monitoring vital signs, and pt preparation for mobility tasks. Consistent verbal and tactile cues required for initiation, sequencing, and safety with functional tasks. Response: Pt had minimal adverse response to PT interventions today. Pt reports Moderate dizziness during standing and tends to hold his breath. Pt was educated with pursed lip breathing that did seem to help with recovery but pt reports having AFIB issues that cause the dizziness when he tries to stand. Pt did have improved ability to reach full upright stance x 3 trials with a max of 30seconds of static stance with good compliance of NWB of the RLE. Vitals were WNL throughout. Pt did well following cues, for safety and proper hand placement, correcting posture, and improving over all endurance in activity during this session. Pt has Good carryover with continued trials for functional standing trials despite reporting increased dizziness and fatigue. All therapeutic activity provided specifically prescribed to address patient's impairments, performed to encourage increased IND with functional tasks due to current functional decline, ultimately toencourage a full return to patient's prior level of function. THERAPEUTIC EXERCISE Treatment Minutes 14 Interventions In Supine - HOB Elevated position, pt performed x10 reps of the following exercises bilaterally: * Glut Sets x2-3 sec holds * Quad Sets x2-3 sec holds * Heel Slides * Straight Leg Raise * Hip Abduction * Ankle pumps x1-2 sec holds MANAGER TITLE provided minimal verbal and tactile cueing to assist with maintaining technique and pace for maximizing muscle contractibility and strength. Pt required frequent rest breaks between exercises forfatigue. Patient was advised and instructed to doing the exercises 2-3 x per day @ 10-30 reps each as able and to progress this program as the reps become easier to continue challenging their muscles, movement/flexibility and to continue gains with their functional mobility overall. Standardized Assessments Standardized Assessments Standardized Assessments: [facility] 6-Clicks Mobility Assessment [facility] 6-Clicks Mobility Assessment Difficulty patient has turning over in bed (including adjusting bedclothes, sheets, and blankets)?:A little Difficulty patient has sitting down on and standing up from a chair with arms (wheelchair, bedside commode, etc.)?: A lot Difficulty patient has moving from lying on back to sitting on the side of the bed?: A little How much help does the patient need moving to and from a bed to a chair (including a wheelchair)?: Unable How much help does the patient need to walk in hospital room?: Unable How much help does the patient need climbing 3-5 steps with a railing?: Unable [facility] 6-Clicks Mobility Assessment Total : 11 PATIENT / FAMILY EDUCATION Patient was educated regarding the PT POC and recommendations regarding discharge planning, as wellas progressively increased time spent out of bed/up to chair, and continued mobilization / ambulation with nursing staff as tolerated to promote increased activity tolerance and Endurance. MANAGER TITLE providing verbal cues/demonstration for pursed-lip breathing technique to promote improved ventilation, decreased respiratory rate and energy conservation with activity. MANAGER TITLE stressed to patient the importance of having nursing staff assist with transfer from bed / back to bed for increased safety and to reduce risk of falls while in the hospital. Patient stated understanding of information provided, denied having further questions or concerns, and stated agreement with current plan of care and recommendations. ASSESSMENT Total Treatment time for this session: 39 Patient was cooperative and tolerated this therapy session without adverse reaction. Patient continues to require assist of 1 person to complete bed mobility but continues to need x 2 people for standing transfers. The patient continues to required increased cues and assist for positioning to increase efficiency of transfers and to maintain balance during transitional movements. The patient tolerated sitting to the EOB for increased time, standing transfers to RW level with good compliance of NWB of the RLE for improved time in stance with a max standing time of ~ 30 seconds and ultimately was transferred back to the bed due to having increased dizziness and fatigue during this PT treatment session. The patient fatigued with extra time for rest breaks and had improved recovery with the pursed lip breathing and focusing his vision. This patient has the following impairments: impaired activity tolerance, gross functional weakness, impaired posture, impaired transfer sequencing and pain,which is limiting the patient from performing independent functional mobility. Patient continues nathan a high fall risk. Will progress mobility as appropriate. Patient would continue to benefit from skilled PT services to decrease fall risk and promote independence with functional mobility, in order to maximize potential level of function. At this time, the patient appears not safe to D/C home secondary to the inability to safely enter/exit home, mobilize, or complete ADLs and will require a higher level of care to improve patients independence with functional mobility back to a more reasonable level of function = too their stated prior level of function and to decrease caregiver burden. Currently it is recommended for Acute Rehab placement upon hospital discharge to encourage increased IND with all transfers and balance to encourage increased IND with each and improve overall functional mobility. Pt would likely progress independence of functional mobility towards PLOF with 3 hours of therapy daily. This level of care is nece ssary to provide the intensity, frequency, and duration of skilled therapy services required to address the patient's deficits in mobility, safety, and self-care. The patient's condition cannot be managed effectively or safely in a lower level of care without risking complications or hospital readmission. PT RECOMMENDATIONS Discharge Destination Acute rehab Discharge Equipment Defer to facility PLAN Pt will continue to benefit from skilled PT for addressing patient's impairments and reducing patient's participation restrictions, activity limitations, decrease their risk of falls, decrease their risk of hospital acquired weakness and to maximize their independence with mobility to ultimately improve their overall quality of life. Will progress current POC to encourage increased IND with all transfers, gait, balance and limits in strength. PT GOALS PT GOAL DETAILS Goal Established Date Time Frame Goal Status PT Goal 1: Pt will be IND with HEP and discharge recommendations. 04/28/25 2 weeks Goal ongoing PT Goal 2: Pt will perform sup<>sit with CGA. 04/28/25 2 weeks Goal not met PT Goal 3: Pt will perform STS with LRAD and CGA. 04/28/25 2 weeks Goal not met PT Goal 4: Pt will ambulate 50' with LRAD and CGA. 04/28/25 2 weeks Goal not met, Goal ongoing PT Goal 5: Pt will navigate up/down 2 steps with CGA. 04/28/25 2 weeks Goal not met, Goal ongoing Written by Corey Lizarraga IV on 05/17/25 at 3:35 PM. * Progress Notes - Wily Goyal, DO - 05/17/2025 11:20 AM EST Subjective Patient denies acute complaints or concerns. Plan for dc to rehab tomorrow w indwelling Barber; plans to see urology outpatient. Occasionally requiring oxycodone for tailbone pain. Reports numbness tofeet by ankle and below Review of Systems Objective Vitals Temp: [36.4 ??C (97.5 ??F)-36.7 ??C (98 ??F)] 36.5 ??C (97.7 ??F) Heart Rate: [61-72] 68 Resp: [18-20] 20 BP: (136-147)/(74-85) 136/85 PE: General: NAD HEENT: NC/AT, EOMI Heart: regular Lungs: nonlabored Abdomen: soft, nd, nt Ext: mild edema Skin: warm, dry Psych: good eye contact Neuro: A&Ox3, moves all ext : Barber 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 49 M h/o morbid obesity and T2DM on U500 admitted for R diabetic foot ulcer with osteomyelitis now s/p R 5th metatarsal amputation on 05/01 with ID and vascular. Surgical pathology negative for OM, off antibiotics now awaiting placement at rehab. Diabetic foot ulcer with 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 - P/w worsening wound R foot found to have elevated inflammatory markers and CT showing possible OMunable to do MRI 2/2 weight - Consults: vascular, ID - S/P amputation 05/01 - Wound vac placed 05/03 - Surgical pathology negative for OM as of 05/06 - Wound vac changes every 2 days - NWB until vascular surgery follow-up in 1 month at least, scheduled for 05/30 T2 DM w uncontrolled hyperglycemia - Home regimen 200 BID - Hospital regimen u500 : 280 units breakfast, 80 with lunch, and 270 with dinner - discussed w endocrine personally; await final dc plan for - home Ozempic, patient supplied Urinary retention s/p barber - HX several months worsening progressive urinary retention since was hospitalized for abdominal infection which has been following with urology outpatient at [facility]. They have postulated this to be related to his diabetes and have had several voiding trials which have failed. Also has un dergone proctoscopy (?) which was normal - PSA WNL 05/06 - Continue home Flomax, finasteride - Urology consulted, indwelling Barber with exchanges every 4-6 weeks for chronic urinary retention Prolonged QTC -dc trazodone, continue venlafaxine, Vraylar -repeat EKG Chronic CHRF-home 2L AF-Xarelto, dilt, and (decrease) Bisoprolol w relative bradycardia CHF-Bumex TID, spironolactone; obtain echo HLD-statin COPD-inhalers A/D-Vraylar, lorazepam, venlafaxine GERD--PPI QUINN-?CPAP, sleep study outpatient Obesity-complicates care * Care Plan - Deepthi Herman RN - 05/17/2025 10:42 AM EST Problem: Skin Injury Risk Increased Goal: Skin Health and Integrity Outcome: Ongoing, Progressing Problem: Adult Inpatient Plan of Care Goal: Plan of Care Review Outcome: Ongoing, Progressing Flowsheets Taken 05/17/2025 1040 by Deepthi Herman RN Progress: improving Taken 05/16/2025 194 by Ivan Slaughter RN Plan of Care Reviewed With: patient Taken 05/14/20252235 by Florina Hinojosa RN Outcome Evaluation: Reviewed of night plan of care with pt. pt verbalized understanding. Goal: Patient-Specific Goal (Individualized) Outcome: Ongoing, Progressing Goal: Absence of Hospital-Acquired Illness or Injury Outcome: Ongoing, Progressing Goal: Optimal Comfort and Wellbeing Outcome: Ongoing, Progressing Problem: Fall Injury Risk Goal: Absence of Fall and Fall-Related Injury Outcome: Ongoing, Progressing Problem: Infection Goal: Absence of Infection Signs and Symptoms Outcome: Ongoing, Progressing Problem: Mobility Impairment Goal: Optimal Mobility Outcome: Ongoing, Progressing Intervention: Optimize Mobility Flowsheets Taken 05/17/2025 0800 by Deepthi Herman, RN Activity Management: activity adjusted per tolerance Taken 05/16/20251999 by Ivan Slaughter, RN Assistive Device Utilized: lift device Taken 05/16/20251948 by Ivan Slaughter RN Positioning/Transfer Devices: pillows Problem: Mobility Impairment Goal: Optimal Mobility Outcome: Ongoing, Progressing Problem: Diabetes Goal: Optimal Coping Outcome: Ongoing, Progressing Goal: Optimal Functional Ability Outcome: Ongoing, Progressing Goal: Blood Glucose Level Within Target Range Outcome: Ongoing, Progressing Goal: Minimize Hypoglycemia Risk Outcome: Ongoing, Progressing Problem: Comorbidity Management Goal: Maintenance of Asthma Control Outcome: Ongoing, Progressing Goal: Maintenance of Behavioral Health Symptom Control Outcome: Ongoing, Progressing Goal: Maintenance of COPD Symptom Control Outcome: Ongoing, Progressing Goal: Blood Glucose Level Within Target Range Outcome: Ongoing, Progressing Goal: Maintenance of Heart Failure Symptom Control Outcome: Ongoing, Progressing Goal: Blood Pressure in Desired Range Outcome: Ongoing, Progressing Goal: Maintenance of Osteoarthritis Symptom Control Outcome: Ongoing, Progressing Goal: Bariatric Home Regimen Maintained Outcome: Ongoing, Progressing Goal: Maintenance of Seizure Control Outcome: Ongoing, Progressing Problem: Wound Goal: Optimal Coping Outcome: Ongoing, Progressing Goal: Optimal Pain Control and Function Outcome: Ongoing, Progressing Goal: Optimal Wound Healing Outcome: Ongoing, Progressing Goal: Optimal Functional Ability Outcome: Ongoing, Progressing Goal: Absence of Infection Signs and Symptoms Outcome: Ongoing, Progressing Goal: Improved Oral Intake Outcome: Ongoing, Progressing Goal: Skin Health and Integrity Outcome: Ongoing, Progressing Problem: Pain Acute Goal: Optimal Pain Control and Function Outcome: Ongoing, Progressing Intervention: Optimize Psychosocial Wellbeing Flowsheets Taken 05/16/2025 194 by Ivan Slaughter RN Supportive Measures: active listening utilized Taken 05/15/2025 1148 by Santy Garcia, RN Diversional Activities: television Intervention: Develop Pain Management Plan Flowsheets (Taken 05/17/2025 1002) Pain Management Interventions: position adjusted Intervention: Prevent or Manage Pain Flowsheets Taken 05/16/2025 0000 by Ivan Slaughetr RN Sleep/Rest Enhancement: awakenings minimized regular sleep/rest pattern promoted Taken 05/06/20251999 by Judd Zavaleta RN Medication Review/Management: medications reviewed Problem: Self-Care Deficit Goal: Improved Ability to Complete Activities of Daily Living Outcome: Ongoing, Progressing Intervention: Promote Activity and Functional Dundy Flowsheets Taken 05/16/20251999 by Ivan Slaughter RN Activity Assistance Provided: assistance, 1 person Taken 05/16/2025 1949 by Ivan Slaughter RN Self-Care Promotion: independence encouraged Taken 05/15/2025 1148 by Santy Garcia, RN Adaptive Equipment Use: used independently * Progress Notes - Sugey Momin APRN - 05/17/2025 10:29 AM EST Endocrine - Diabetes Consult follow-up: Subjective: 24 hour update: -transitioned to U500 insulin 05/08 -U500 insulin doses adjusted daily to obtain tighter glycemic control - no hypoglycemia in recent days, evening hyperglycemia yesterday- other quiñonez glycemic control improving -AM BG elevated at 225, tolerating PO -hopeful for rehab placement soon I have reviewed the patient's blood glucose levels, labs, vitals, and insulin doses administered inthe electronic medical record. Review of Systems Constitutional: Positive for activity change. Negative for appetite change. HENT: Negative for trouble swallowing. Respiratory: Negative for shortness of breath. Sleep apnea Cardiovascular: Negative for chest pain and palpitations. Gastrointestinal: Negative for abdominal pain and nausea. Endocrine: See 24 hour update Wearing CGM Genitourinary: Barber in place Skin: Positive for wound (bilateral lower extremities). Psychiatric/Behavioral: Negative for agitation and confusion. Objective: Physical Exam Vitals reviewed. Constitutional: General: He is not in acute distress. Appearance: He is obese. HENT: Head: Normocephalic and atraumatic. Mouth/Throat: Mouth: Mucous membranes are moist. Eyes: Pupils: Pupils are equal, round, and reactive to light. Cardiovascular: Rate and Rhythm: Normal rate. Pulmonary: Effort: Pulmonary effort is normal. No respiratory distress. Comments: Nasal cannula Genitourinary: Comments: Barber Musculoskeletal: General: No swelling. Skin: General: Skin is warm and dry. Findings: Lesion (bilateral lower extremities; new right toe amputation - wound vac in place) present. Neurological: Mental Status: He is alert and oriented to person, place, and time. Mental status is at baseline. Psychiatric: Mood and Affect: Mood normal. Behavior: Behavior normal. Thought Content: Thought content normal. Judgment: Judgment normal. BP (!) 143/78 (Patient Position: Lying) Pulse 63 Temp 36.7 ??C (98 ??F) Resp 20 Ht 1.829 m (6') Wt (!) 248 kg (545 lb 10.2 oz) BMI 74.00 kg/m?? Medications: Current Scheduled Medications[1] Current Continuous Medications[2] Current PRN Medications[3] Diet Dietary Orders (From admission, onward) Start Ordered 05/02/25 1413 Adult diet Diet texture: Regular; Carbohydrate restriction: Consistent Carb 2 (80 gm max/meal); Sodium restriction: 2,000 mg Na Diet effective now References: IDDSI Diet Texture Guide Question Answer Comment Diet texture Regular Carbohydrate restriction: Consistent Carb 2 (80 gm max/meal) Sodium restriction: 2,000 mg Na 05/02/25 1413 Lab Review: Results from last 7 days Lab Units 05/16/25 0408 SODIUM mmol/L 131* POTASSIUM mmol/L 3.6 CHLORIDE mmol/L 88* CO2 mmol/L 34* BUN mg/dL 19 CREATININE mg/dL 0.86 EGFR mL/min/1.73m*2 107.5 GLUCOSE mg/dL 168* CALCIUM mg/dL 9.3 Results from last 7 days Lab Units 05/16/25 0408 WBC 10*3/uL 7.97 HEMOGLOBIN g/dL 9.5* HEMATOCRIT % 31.6* PLATELETS 10*3/uL 264 Lab Results Component Value Date GLUCOSE 168 (H) 05/16/2025 GLUCOSE 162 (H) 05/15/2025 GLUCOSE 282 (H) 05/14/2025 PGLU 283 (H) 05/16/2025 PGLU 161 (H) 05/16/2025 PGLU 168 (H) 05/16/2025 PGLU 190 (H) 05/15/2025 PGLU 270 (H) 05/15/2025 PGLU 233 (H) 05/15/2025 PGLU 235 (H) 05/15/2025 PGLU 175 (H) 05/15/2025 Lab Results Component Value Date HGBA1C 8.9 (H) 04/29/2025 I have personally reviewed and interpreted the patient's blood glucose levels, pertinent diabetes related labs, and insulin doses administered in the electronic medical record ASSESSMENT Hospital Course: Gonzalo Smalls is a 49 y.o. male with hx of CHF, HTN, HLD, a.fib, type 2 DM [on U500 insulin], COPD, QUINN on nightly oxygen, recurrent UTIs, BPH, morbid obesity, and anxiety/depression. Patient presented to ED for evaluation of worsening right diabetic foot ulcer. Mr. Smalls presented to an OSH and Podiatry they are recommended to coming to for evaluation due to his size and delayed abilityto get him in the OR. Of note, Mr. Smalls is receiving enteral panel for recurrent UTI and has a chronic Barber. Per chart review it appears that the kidney infection is for ESBL E coli. ED lab work was significant for leukocytosis, anemia, hyperglycemia, hypokalemia, hypomagnesemia, elevated CRP and sed rate. 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 Hospital medicine was consulted for admission. Endocrine Diabetes team was consulted for glycemic management on 04/28/25. Patient on U500 insulin dosing at home. Primary team requesting recommendations and orders Daily Glucose and Insulin Total Daily Dose -consulted 04/28 AM BG 199 -05/06: 212-364, TDD 344 units -05/07 350-411 TDD 405 units -05/08: 273-388 TDD 446 units started on U500 insulin dosing in the evening -05/09: 283-398, TDD 425 units -05/10: 332-418 TDD 482 units -05/11: 240-336 TDD 560 units -05/12: 233-315 TDD 560 units -05/13: 217-321 TDD 582 units -05/14: 194-320, TDD 655 units -05/15: 162-270, TDD 638 units -Diet: regular CC2 [80 g/meal] -Steroids: none Diagnoses #diabetic foot ulcer -OR 05/01 for right 4th and 5th toe amputation Good glycemic control important to healing and infection prevention in post surgical setting #UTI -barber in place #Class III obesity -BMI 74 -complicates all aspects of care - contributes to insulin resistance #diabetes mellitus - type 2 -Home medications: CGM: Dexcom G7 Insulin regimen: U500 insulin: prescription for 225 units BID patient reports taking 200 units BID --> first dispensed 03/24/2025 - last dispensed 04/24/2025. insulin pen Reports being on U500 insulin for about 1 month and glycemic control has significantly improved Non insulin diabetes medications: Ozempic - recently started increased dose 0.5 mg this past week Metformin 1000mg BID Failed/Discontinued meds: Glargine: last dispensed 04/17/2025 Novolog mix last dispensed 02/22/2025 Jardiance Did not tolerate Mounjaro due to GI issues, constipation -see inpatient diabetes plan of care below Current Hospital Regimen: Non insulin regimen: Patient restarted on Ozempic 0.25 mg once weekly, received last dose on , next dose should be Saturday 05/19 Insulin regimen: Basal: TID U500 dosing AM: 280 units U500 Afternoon/lunch: 80 units U500 Dinner: 270 units U500 Bolus: none Correction: very resistant dosing 3:50>150 lispro at mealtimes; 1;50>250 lispro bedtime, 3am PRN Diabetes Management PLAN for 05/17/25: - increase lunch U500 to 90 units for continued hyperglycemia prior to dinner -fsbg ac/hs when eating, q6h when NPO, on TF/TPN -correction insulin to be given for hyperglycemia, do not hold if pt does not eat/TF held, must be given within one hour of fingerstick or risk hypoglycemia -prandial/scheduled mealtime insulin dose is to be given based on how much patient eats. Nursing toobserve and document % eaten and dose insulin according to parameters in order -hypoglycemia protocol in place -continue to assess blood glucose trends and adjust basal/bolus insulin therapy dose accordingly -continue intensive glucose monitoring due to increased risk for hyper/hypoglycemia secondary to insulin therapy -Please document the percentage of meals consumed in intake and output flowsheet. -please notify us when diet orders change or steroids added as this impacts our tx NOTE: -Patient utilizes U500 insulin pen at home. With the U500 pen, a conversion is not needed. Typically patient's required a 70% reduction in home U500 dosing. 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 Also discussed contacting [facility] directly for the financial assistance program. -hopefully rehab facility will allow U500 insulin if patient is able to bring in his own supply Insulin regimen - would like patient to utilize U500 home dosing at rehab Continue Dexcom G7 CGM Likely continue Ozempic - weekly on Likely continue metformin -1000mg BID May substitute for therapeutic equivalent per insurance and retail PharmD approval -Supplies/scripts needed: Ensure patient has working glucose meter and supplies as back-up to CGM DM/Endo team will continue to follow. Please notify us as patient nears discharge for final recommendations Please contact Sugey Momin APRN [place] Adult Inpatient Diabetes team via secure chat or page us [phone] during 7a-7p, Thursday-Thursday. For after hours please contact the on-call Endocrine Fellow. Thank you for the opportunity to participate in this patient's care. - Reviewed notes by primary team and consulting services to determine appropriate plan of care as in the note. Time Spent: I personally spent a total of 30 minutes on this encounter. This time includes face to face with patient, counseling and discussion and/or coordination of care. [1] atorvastatin, 40 mg, Oral, Nightly bisoprolol, 10 mg, Oral, Daily bumetanide, 4 mg, Oral, TID cariprazine, 3 mg, Oral, Daily dilTIAZem CD, 120 mg, Oral, Daily ferrous sulfate, 324 mg, Oral, Every other day finasteride, 5 mg, Oral, Daily fluticasone, 2 spray, Each Nostril, Daily gabapentin, 600 mg, Oral, TID insulin lispro, 0-15 Units, Subcutaneous, TID with meals insulin lispro, 0-3 Units, Subcutaneous, Twice at night insulin regular, 250 Units, Subcutaneous, Daily with dinner And insulin regular, 20 Units, Subcutaneous, Daily with dinner insulin regular, 250 Units, Subcutaneous, Daily with breakfast And insulin regular, 30 Units, Subcutaneous, Daily with breakfast insulin regular, 80 Units, Subcutaneous, Daily before lunch magnesium oxide, 800 mg, Oral, Daily miconazole, , Topical, BID pantoprazole, 40 mg, Oral, Daily before breakfast polyethylene glycol, 17 g, Oral, Daily rivaroxaban, 20 mg, Oral, Daily with dinner sodium chloride, 10 mL, Intravenous, q12h spironolactone, 100 mg, Oral, Daily tamsulosin, 0.4 mg, Oral, Daily venlafaxine XR, 150 mg, Oral, Daily [2] [3] PRN medications: acetaminophen, albuterol, glucose OR dextrose 10 % OR dextrose 10 % OR glucagon (human recombinant), guaiFENesin, ipratropium-albuterol, LORazepam, magnesium citrate,oxyCODONE, sodium chloride, Insert peripheral IV AND Saline lock IV AND sodium chloride AND sodium chloride * Care Plan - Ivan Slaughter RN - 05/16/2025 7:51 PM EST Problem: Skin Injury Risk Increased Goal: Skin Health and Integrity Outcome: Ongoing, Progressing Problem: Adult Inpatient Plan of Care Goal: Plan of Care Review Outcome: Ongoing, Progressing Flowsheets (Taken 05/16/20251948) Progress: improving Plan of Care Reviewed With: patient Goal: Patient-Specific Goal (Individualized) Outcome: Ongoing, Progressing Flowsheets (Taken 05/16/20251944) Patient/Family-Specific Goals (Include Timeframe): pt will remain free from falls/injury during theshift Individualized Care Needs: safety Anxieties, Fears or Concerns: none Goal: Absence of Hospital-Acquired Illness or Injury Outcome: Ongoing, Progressing Goal: Optimal Comfort and Wellbeing Outcome: Ongoing, Progressing Problem: Fall Injury Risk Goal: Absence of Fall and Fall-Related Injury Outcome: Ongoing, Progressing Problem: Infection Goal: Absence of Infection Signs and Symptoms Outcome: Ongoing, Progressing Problem: Mobility Impairment Goal: Optimal Mobility Outcome: Ongoing, Progressing Intervention: Optimize Mobility Flowsheets (Taken 05/16/20251948) Positioning/Transfer Devices: pillows Problem: Mobility Impairment Goal: Optimal Mobility Outcome: Ongoing, Progressing Problem: Diabetes Goal: Optimal Coping Outcome: Ongoing, Progressing Goal: Optimal Functional Ability Outcome: Ongoing, Progressing Goal: Blood Glucose Level Within Target Range Outcome: Ongoing, Progressing Intervention: Optimize Glycemic Control Flowsheets (Taken 05/16/20251948) Hyperglycemia Management: blood glucose monitored Goal: Minimize Hypoglycemia Risk Outcome: Ongoing, Progressing Problem: Comorbidity Management Goal: Maintenance of Asthma Control Outcome: Ongoing, Progressing Goal: Maintenance of Behavioral Health Symptom Control Outcome: Ongoing, Progressing Goal: Maintenance of COPD Symptom Control Outcome: Ongoing, Progressing Goal: Blood Glucose Level Within Target Range Outcome: Ongoing, Progressing Goal: Maintenance of Heart Failure Symptom Control Outcome: Ongoing, Progressing Goal: Blood Pressure in Desired Range Outcome: Ongoing, Progressing Goal: Maintenance of Osteoarthritis Symptom Control Outcome: Ongoing, Progressing Goal: Bariatric Home Regimen Maintained Outcome: Ongoing, Progressing Goal: Maintenance of Seizure Control Outcome: Ongoing, Progressing Problem: Wound Goal: Optimal Coping Outcome: Ongoing, Progressing Intervention: Support Patient and Family Response Flowsheets (Taken 05/16/20251948) Supportive Measures: active listening utilized Family/Support System Care: self-care encouraged Goal: Optimal Pain Control and Function Outcome: Ongoing, Progressing Goal: Optimal Wound Healing Outcome: Ongoing, Progressing Goal: Optimal Functional Ability Outcome: Ongoing, Progressing Goal: Absence of Infection Signs and Symptoms Outcome: Ongoing, Progressing Intervention: Prevent or Manage Infection Flowsheets (Taken 05/16/20251948) Infection Management: aseptic technique maintained Fever Reduction/Comfort Measures: lightweight bedding lightweight clothing Goal: Improved Oral Intake Outcome: Ongoing, Progressing Goal: Skin Health and Integrity Outcome: Ongoing, Progressing Problem: Pain Acute Goal: Optimal Pain Control and Function Outcome: Ongoing, Progressing Intervention: Develop Pain Management Plan Flowsheets (Taken 05/16/20251948) Pain Management Interventions: pain management plan reviewed with patient/caregiver pillow support provided position adjusted rest Problem: Self-Care Deficit Goal: Improved Ability to Complete Activities of Daily Living Outcome: Ongoing, Progressing Intervention: Promote Activity and Functional [place] Flowsheets (Taken 05/16/2025 1949) Self-Care Promotion: independence encouraged * Progress Notes - Chayo Jennings RN - 05/16/2025 2:16 PM EST Case Management Adult Progress Note Gonzalo Smalls 49 y.o. male CSN: [id number] Admission: 04/27/2025 9:29 PM Primary Problem: Diabetic foot ulcer Anticipated Discharge Date: 05/18/25 Pt is in a need for rehab placement and was referred and accepted by Merly Espinoza- [facility] CM spoke with Araceli in admission, ph#[phone] who confirmed pts acceptance. Pt updated and in agreement with d/c plan. Ambulance for to transport he pt at d/c is arranged for 9:30AM on 05/18. Team updated.RN [place] will continue to follow and assist as needed. Chayo Jennings RN * Consults - Vivian Garcia RN - 05/16/2025 1:08 PM ESTAssociated Order(s): IP CONSULT TO DIABETIC EDUCATION Adult Diabetes Education Team Note Gonzalo Smalls 49 y.o. male CSN: [id number] This is a 49 y.o. male patient was admitted to [facility] with the diagnosis of Diabetic Foot Ulcer, u-500 Infected DM foot ulcer Pathway. Labs: A1C 8.9% FSBG-PRN FSBG FSBG Other FSBG-AC FSBG-HS FSBG-3a POCBG Ranges:168-235 Current Diabetes Regimen: U-500 280 units at breakfast, 80 units at lunch, 270 units at Dinner Home Monitoring Of Diabetes Home Monitoring Meter Type: Dexcom g7 and back up meter Home Monitoring Frequency: Other cgm Home Medications for Diabetes: u-500 200 units BID, Metformin 1000 mg po BID Any barriers/issues getting DM/RX Supplies? No Education Diabetic Education Performed with patient, Type 2 DM for 10 years. PCP is Malcolm Hayward APRN, [facility] is Dr. Garvey in [place], [place]. Medication Education instructions given: The use of oral medication The use of insulin Injection sites and rotation Importance of taking basal insulin Discussed current U-500 regimen, anticipate pt will d/c to rehab before home and will need to be educated on final dosing plan for home. Pt reports he has all supplies and meds at home except for ozempic (thinks he just needs to go to pharmacy) Diabetic Monitoring Education instructions given: Appropriate meter for for situation Test Times Target Goals Action to take for results outside the 80-180 Hyperglycemia causes, signs, symptoms and treatment Encouraged him to use Dexcom for monitoring, pt describing that he likes it as it let him know how the food is impacting his glucose. Hypoglycemia Management instructions given: Symptoms, causes, and treatment, discussed rule of 15 Nutrition instructions given: Appropriate meal schedule Plate method Carbohydrate containing foods Pt already drinking non sugary drinks, describes he eats 3 meals per day and snacks. Discussed importance of eating less processed foods and trying to get protein with every meal and snack. Sick Day Management instructions given: Importance of always taking basal insulin When to call the doctor Complications and Hygiene instructions given: A1C Foot Care Complications Prevention , pt reports he has a gear lapper as well Follow Ups: Provided with educational literature and the diabetic DM basic booklet, hypoglycemia, u-500, cc2 diet, plate method. Foot care and inspection, Diabetes Education Team Recommendations: DM education completed. All questions answered. Pt feels comfortable d/c home with u-500 regimen. Discussed making sure to get back in with endo once d/c fromrehab. Education Time 15 minutes Vivian Garcia RN * Progress Notes - Wily Goyal DO - 05/16/2025 11:09 AM EST Subjective Patient denies acute complaints or concerns. He has a Barber in and plans to see urology outpatient. Review of Systems Objective Vitals Temp: [36.4 ??C (97.5 ??F)-36.6 ??C (97.8 ??F)] 36.6 ??C (97.8 ??F) Heart Rate: [61-71] 61 Resp: [16-18] 18 BP: (121-159)/(71-95) 130/71 PE: General: NAD HEENT: NC/AT, EOMI Heart: regular Lungs: nonlabored Abdomen: soft, nd, nt Ext: mild edema Skin: warm, dry Psych: good eye contact Neuro: A&Ox3, moves all ext : Barber 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 49 M h/o morbid obesity and T2DM on U500 admitted for R diabetic foot ulcer with osteomyelitis now s/p R 5th metatarsal amputation on 05/01 with ID and vascular. Surgical pathology negative for OM, off antibiotics now awaiting placement at rehab. Diabetic foot ulcer with 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 - P/w worsening wound R foot found to have elevated inflammatory markers and CT showing possible OMunable to do MRI 08/14 weight - Consults: vascular, ID - S/P amputation 05/01 - Wound vac placed 05/03 - Surgical pathology negative for OM as of 05/06 - Wound vac changes every 2 days - NWB until vascular surgery follow-up in 1 month at least, scheduled for 05/30 T2 DM w uncontrolled hyperglycemia - Home regimen 200 BID - Hospital regimen u500 : 280 units breakfast, 80 with lunch, and 270 with dinner - discussed w endocrine personally; await final dc plan for - home Ozempic, patient supplied Urinary retention s/p barber - HX several months worsening progressive urinary retention since was hospitalized for abdominal infection which has been following with urology outpatient at [facility]. They have postulated this to be related to his diabetes and have had several voiding trials which have failed. Also has un dergone proctoscopy (?) which was normal - PSA WNL 05/06 - Continue home Flomax, finasteride - Urology consulted, idwelling Barber with exchanges every 4-6 weeks for chronic urinary retention Prolonged QTC -dc trazodone, continue venlafaxine, Vraylar -repeat EKG Chronic CHRF-home 2L AF-Xarelto, dilt, and (decrease) Bisoprolol w relative bradycardia CHF-Bumex TID, spironolactone; obtain echo HLD-statin COPD-inhalers A/D-Vraylar, lorazepam, venlafaxine GERD--PPI QUINN-?CPAP, sleep study outpatient Obesity-complicates care * Vivian Casey RN - 05/16/2025 11:07 AM EST Images from the original note were not included. Humulin U-500 Insulin - Video Understand how Humulin U-500 Insulin works to help control your blood glucose levels. Also, know the possible side effects and how to properly use and store this medication. To view the video go to this web address: [email or web address] Or, scan this QR code with your smart phone ?? [employer] * Vivian Casey RN - 05/16/2025 11:06 AM EST Images from the original note were not included. 4029 Special Foot Care for Diabetes It's important to take good care of your feet when you have diabetes. A condition called diabetic foot can land you in the hospital. This condition makes up about 1 in 4 hospital stays in people withdiabetes. Diabetic foot means a foot sore (ulcer) caused by nerve damage or poor blood flow in a person with diabetes. If you have diabetes, foot wounds or sores can also lead to serious infection. You may end up with gangrene or need an amputation. Long-term diabetes often leads to nerve damage (diabetic neuropathy). This damage makes it harder for you to feel small injuries to your feet. Fortunately, you can often prevent these serious wounds by looking at your feet every day. Here's what you can do to help prevent foot problems: ? Take care of your diabetes. Work with your care team to keep your blood sugar in your target range. ? Look at your feet every day. Check for sores, cuts, bruises, and toenail changes. Use a mirror tolook at the bottom of your feet if you need to. Call or see your doctor if you have cuts or breaks in the skin, have an ingrown nail, or if your foot changes color or shape, or becomes less sensitive. See your doctor right away if you see a new sore or if your foot becomes swollen, red, or painful.Stay off your feet if your doctor tells you to as part of your recovery. Be on the lookout for changes in your feet. Examples are bunions, claw toes, or hammertoes. You may need surgery. ? Wash your feet every day and dry them with care. Use a mild soap and lukewarm water. Always checkthe water temperature before putting your feet in the water. Dry your feet very carefully, especially between the toes. If the skin is dry, use a moisturizer. But don't use this between the toes. Extra moisture there can lead to fungal infections. You can put cornstarch between your toes to keep the spaces between your toes dry. ? Be careful with your toenails. Trim your toenails with a nail clipper. Trim them straight across,not into the corners. Use an emery board to gently smooth the nail. Have a gear lapper trim your nails if you can't see or feel your feet, have thick or yellowed nails, or have nails that grow into your skin. If you want a salon pedicure, bring your own nail tools to prevent an infection. Have the staff trim the nails as described above. ? Wear shoes and socks at all times. Never walk barefoot, even in your home. Wear comfortable shoesthat fit well and protect your feet. Check inside your shoes before wearing them to make sure the lining is smooth, and there are no objects inside. If your doctor tells you that you are at high riskfor foot problems, they may advise a specific shoe type. Wear soft, thick socks with no seams. Seams can rub and cause blisters. ? Exercise. Walking improves blood flow. It can also help control your weight. Wear correctly fitted walking shoes. ? Never try to remove corns, calluses, or warts by yourself. Gdzr-hat-pymnsme products can burn or damage your skin. Sometimes this damage can't be fixed. ? Don?t smoke. Smoking can cause poor blood flow to the feet and make wounds heal slowly. Many smokers with diabetes need amputations. Finally, take your shoes and socks off and ask your doctor to check your feet every time you go fora visit. A yearly foot exam is advised for all people with diabetes, or more often if you have problems. During this exam, your doctor will identify risk factors that can predict sores and amputations. Some risk factors are loss of feeling in your foot, foot deformities, and blood flow problems. The exam can be done either by your primary care doctor or by a gear lapper. This is a doctor who specializes in foot care. Some diabetes centers have regular foot clinics. Last Reviewed Date: 2024 00:00:00 ?? [id number] [employer]. All rights reserved. This information is not intended as a substitute for professional medical care. Always follow your healthcare professional's instructions. * Ruy HoffmanMENG - Vivian Garcia RN - 05/16/2025 11:06 AM EST Images from the original note were not included. 35172 Inspecting Your Feet (Diabetes) [employer]Pp[facility]: Last Reviewed Date: 2024 00:00:00 ?? [id number] [employer]. All rights reserved. This information is not intended as a substitute for professional medical care. Always follow your healthcare professional's instructions. * Progress Notes - Aileen Leonardo, ADALGISA - 05/16/2025 8:35 AM EST Endocrine - Diabetes Consult follow-up: Subjective: 24 hour update: -transitioned to U500 insulin 05/08 -U500 insulin doses adjusted daily to obtain tighter glycemic control -AM BG 168, pre lunch glucose 161 -patient overall doing well today. Patient reports that they are working on rehab placement for neftaly Moreland I have reviewed the patient's blood glucose levels, labs, vitals, and insulin doses administered inthe electronic medical record. Review of Systems Constitutional: Positive for activity change. Negative for appetite change. HENT: Negative for trouble swallowing. Respiratory: Negative for shortness of breath. Sleep apnea Cardiovascular: Negative for chest pain. Hx of heart failure Gastrointestinal: Positive for constipation. Negative for abdominal pain and nausea. Endocrine: See 24 hour update Wearing CGM Genitourinary: Barber in place Skin: Positive for wound (bilateral lower extremities). Psychiatric/Behavioral: Positive for sleep disturbance. Negative for agitation and confusion. Objective: Physical Exam Constitutional: General: He is not in acute distress. Appearance: He is obese. He is ill-appearing. HENT: Head: Normocephalic and atraumatic. Mouth/Throat: Mouth: Mucous membranes are moist. Eyes: Pupils: Pupils are equal, round, and reactive to light. Cardiovascular: Rate and Rhythm: Normal rate. Pulmonary: Effort: Pulmonary effort is normal. No respiratory distress. Comments: Nasal cannula Genitourinary: Comments: Barber Musculoskeletal: General: No swelling. Skin: General: Skin is warm and dry. Findings: Lesion (bilateral lower extremities; new right toe amputation - wound vac in place) present. Neurological: Mental Status: He is alert and oriented to person, place, and time. Mental status is at baseline. Psychiatric: Mood and Affect: Mood normal. Thought Content: Thought content normal. Judgment: Judgment normal. BP (!) 142/86 Pulse 61 Temp 36.5 ??C (97.7 ??F) Resp 18 Ht 1.829 m (6') Wt (!) 248 kg (545 lb 10.2 oz) BMI 74.00 kg/m?? Medications: Current Scheduled Medications[1] Current Continuous Medications[2] Current PRN Medications[3] Diet Dietary Orders (From admission, onward) Start Ordered 05/02/25 1413 Adult diet Diet texture: Regular; Carbohydrate restriction: Consistent Carb 2 (80 gm max/meal); Sodium restriction: 2,000 mg Na Diet effective now References: IDDSI Diet Texture Guide Question Answer Comment Diet texture Regular Carbohydrate restriction: Consistent Carb 2 (80 gm max/meal) Sodium restriction: 2,000 mg Na 05/02/25 1413 Lab Review: Results from last 7 days Lab Units 05/16/25 0408 SODIUM mmol/L 131* POTASSIUM mmol/L 3.6 CHLORIDE mmol/L 88* CO2 mmol/L 34* BUN mg/dL 19 CREATININE mg/dL 0.86 EGFR mL/min/1.73m*2 107.5 GLUCOSE mg/dL 168* CALCIUM mg/dL 9.3 Results from last 7 days Lab Units 05/16/25 0408 WBC 10*3/uL 7.97 HEMOGLOBIN g/dL 9.5* HEMATOCRIT % 31.6* PLATELETS 10*3/uL 264 Lab Results Component Value Date GLUCOSE 168 (H) 05/16/2025 GLUCOSE 162 (H) 05/15/2025 GLUCOSE 282 (H) 05/14/2025 PGLU 168 (H) 05/16/2025 PGLU 190 (H) 05/15/2025 PGLU 270 (H) 05/15/2025 PGLU 233 (H) 05/15/2025 PGLU 235 (H) 05/15/2025 PGLU 175 (H) 05/15/2025 PGLU 194 (H) 05/14/2025 PGLU 320 (H) 05/14/2025 I reviewed bg tracing in [facility] glucose timeline 05/16/25 ASSESSMENT Hospital Course: Gonzalo Smalls is a 49 y.o. male with hx of CHF, HTN, HLD, a.fib, type 2 DM [on U500 insulin], COPD, QUINN on nightly oxygen, recurrent UTIs, BPH, morbid obesity, and anxiety/depression. Patient presented to ED for evaluation of worsening right diabetic foot ulcer. Mr. Smalls presented to an OSH and Podiatry they are recommended to coming to for evaluation due to his size and delayed abilityto get him in the OR. Of note, Mr. Smalls is receiving enteral panel for recurrent UTI and has a chronic Barber. Per chart review it appears that the kidney infection is for ESBL E coli. ED lab work was significant for leukocytosis, anemia, hyperglycemia, hypokalemia, hypomagnesemia, elevated CRP and sed rate. 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 Hospital medicine was consulted for admission. Endocrine Diabetes team was consulted for glycemic management on 04/28/25. Patient on U500 insulin dosing at home. Daily Glucose and Insulin Total Daily Dose -consulted 04/28 AM BG 199 -05/06: 212-364, TDD 344 units -05/07 350-411 TDD 405 units -05/08: 273-388 TDD 446 units started on U500 insulin dosing in the evening -05/09: 283-398, TDD 425 units -05/10: 332-418 TDD 482 -05/11: 240-336 TDD 560 units -05/12: 233-315 TDD 560 units -05/13: 217-321 TDD 582 units -05/14: 194-320, TDD 655 units -05/15: 162-270, TDD 638 units -A1c: Lab Results Component Value Date HGBA1C 8.9 (H) 04/29/2025 -Diet: regular CC2 [80 g/meal] -Steroids: none Diagnoses #diabetic foot ulcer -OR 05/01 for right 4th and 5th toe amputation #UTI -barber in place #obesity -BMI 81.99 -complicates all aspects of care - contributes to insulin resistance #diabetes mellitus - type 2 -Home medications: CGM: [employer] G7 Insulin regimen: U500 insulin: prescription for 225 units BID patient reports taking 200 units BID --> first dispensed 03/24/2025 - last dispensed 04/24/2025. insulin pen Reports being on U500 insulin for about 1 month and glycemic control has significantly improved Non insulin diabetes medications: Ozempic - recently started increased dose 0.5 mg this past week Metformin 100 mg BID Failed/Discontinued meds: Glargine: last dispensed 04/17/2025 Novolog mix last dispensed 02/22/2025 Jardiance Did not tolerate Mounjaro due to GI issues, constipation -see inpatient diabetes plan of care below PLAN: Primary team requesting recommendations and orders -After review of glucose trends and insulin delivery over the last 24 hours, no changes were made as plan to assess changes made to insulin regimen 05/15 Current Hospital Regimen: Non insulin regimen: Patient restarted on Ozempic 0.25 mg once weekly, received last dose on 05/12 Insulin regimen: Basal: TID U500 dosing AM: 280 units U500 Afternoon/lunch: 80 units U500 --> consider increase to 90 units Dinner: 270 units U500 Bolus: none Correction: very resistant dosing 3:50>150 lispro at mealtimes; 1;50>250 lispro bedtime, 3am PRN -Continue intensive glucose monitoring due to increased risk for hyper/hypoglycemia secondary to insulin therapy -Will continue to assess blood glucose trends and adjust basal/bolus insulin therapy dose according -fsbg ac/hs when eating, q6h when NPO, on TF/TPN -correction insulin to be given for hyperglycemia, do not hold correction if patient does not eat. -hypoglycemia protocol in place -Please document the percentage of meals consumed in intake and output flowsheet. -please notify us when diet orders change or steroids added as this impacts our tx NOTE: -Patient utilizes U500 insulin pen at home. With the U500 pen, a conversion is not needed. Typically patient's required a 70% reduction in home U500 dosing. 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 Also discussed contacting [facility] directly for the financial assistance program. -patient with plans to discharge to [facility] once able - need to check with [facility] to see if they are okay with utilizing U500 insulin if patient is able to bring in his own supply Insulin regimen - would like patient to utilize U500 home dosing at [facility] Continue Dexcom G7 CGM Likely continue Ozempic Likely continue metformin May substitute for therapeutic equivalent per insurance and retail PharmD approval -Supplies/scripts needed: Ensure patient has working glucose meter and supplies as back-up to CGM DM/Endo team will continue to follow. Please notify us as patient nears discharge for final recommendations Please contact Aileen Leonardo APRN [place] Adult Inpatient Diabetes team via secure chat orpage us at [phone] during -7p, Thursday-Thursday. For after hours please contact the on-call Endocrine Fellow. Thank you for the opportunity to participate in this patient's care. - Reviewed notes by primary team and consulting services to determine appropriate plan of care as in the note. - Discussed plan and management with patient and telehealth nurse educator Time Spent: I personally spent a total of 30 minutes on this encounter. This time includes face to face with patient, counseling and discussion and/or coordination of care. [1] atorvastatin, 40 mg, Oral, Nightly bisoprolol, 10 mg, Oral, BID bumetanide, 4 mg, Oral, TID cariprazine, 3 mg, Oral, Daily dilTIAZem CD, 120 mg, Oral, Daily ferrous sulfate, 324 mg, Oral, Every other day finasteride, 5 mg, Oral, Daily fluticasone, 2 spray, Each Nostril, Daily gabapentin, 600 mg, Oral, TID insulin lispro, 0-15 Units, Subcutaneous, TID with meals insulin lispro, 0-3 Units, Subcutaneous, Twice at night insulin regular, 250 Units, Subcutaneous, Daily with dinner And insulin regular, 20 Units, Subcutaneous, Daily with dinner insulin regular, 250 Units, Subcutaneous, Daily with breakfast And insulin regular, 30 Units, Subcutaneous, Daily with breakfast insulin regular, 80 Units, Subcutaneous, Daily before lunch Kyree, 1 packet, Oral, BID magnesium oxide, 800 mg, Oral, Daily miconazole, , Topical, BID pantoprazole, 40 mg, Oral, Daily before breakfast polyethylene glycol, 17 g, Oral, Daily rivaroxaban, 20 mg, Oral, Daily with dinner sodium chloride, 10 mL, Intravenous, q12h spironolactone, 100 mg, Oral, Daily tamsulosin, 0.4 mg, Oral, Daily venlafaxine XR, 150 mg, Oral, Daily [2] [3] PRN medications: acetaminophen, albuterol, glucose OR dextrose 10 % OR dextrose 10 % OR glucagon (human recombinant), guaiFENesin, ipratropium-albuterol, LORazepam, magnesium citrate,oxyCODONE, sodium chloride, Insert peripheral IV AND Saline lock IV AND sodium chloride AND sodium chloride * Consults - Kylee Ann RD - 05/16/2025 8:28 AM EST Adult Nutrition Evaluation Note Gonzalo Smalls 49 y.o. male CSN: [id number] Room/Bed 117/117A Nutrition evaluation type: follow-up Reason for evaluation: Hospital course: 49 y/o M presented for evaluation of a worsening right DM foot ulcer. OM of the 5th MTP, s/p right 5th toe ray amputation on 05/01. S/p wound vac placement on 05/03. Pending rehab placement. Past medical/ surgical history: Past Medical History[1] Surgical History[2] Social history: Additional comments: 05/16: Pt seen at bedside. Endorses a good appetite. No issues with N/V at this time. Struggling with constipation some. Had BM today but felt he really had to strain. Reports he already discussed with team. Vitals and Basic Assessment: BP: (!) 142/86 Temp: 36.5 ??C (97.7 ??F) Oxygen Therapy: Supplemental oxygen O2 Delivery Method: Nasal cannula Shelley Coma Scale Score: 15 Miguel Ángel Scale Score: 16 Most Recent BM Date: 05/15/25 GI Symptoms: Constipation Edema: Generalized, Right lower extremity, Left lower extremity Skin: amputation site right foot (+ wound vac); wound to groin, coccyx Allergies: no known food allergies Medications: Current Scheduled Medications[3] Current Continuous Medications[4] Current PRN Medications[5] Meds were reviewed: Yes Labs: Lab Results Component Value Date WBC 7.97 05/16/2025 HGB 9.5 (L) 05/16/2025 HCT 31.6 (L) 05/16/2025 MCV 74 (L) 05/16/2025 PLT 264 05/16/2025 Lab Results Component Value Date GLUCOSE 168 (H) 05/16/2025 CALCIUM 9.3 05/16/2025 NA 131 (L) 05/16/2025 K 3.6 05/16/2025 CO2 34 (H) 05/16/2025 CL 88 (L) 05/16/2025 BUN 19 05/16/2025 CREATININE 0.86 05/16/2025 PHOS 3.7 05/16/2025 MG 1.8 (L) 05/16/2025 HGBA1C 8.9 (H) 04/29/2025 Anthropometrics: Height: 182.9 cm (6') Weight: (!) 248 kg (545 lb 10.2 oz) BMI (Calculated): 73.99 Weight Evaluation: Extreme Obesity (BMI > 40) [place] Body Weight (kg): 80.9 Percent [place] Body Weight: 311 Adjusted Body Weight (kg): 124 Wt Readings from Last 5 Encounters: 05/15/25 (!) 248 kg (545 lb 10.2 oz) 01/10/25 (!) 256 kg (563 lb 4.8 oz) 12/14/24 (!) 256 kg (564 lb 6 oz) 12/11/24 (!) 256 kg (564 lb 6 oz) 09/13/24 (!) 250 kg (551 lb 13 oz) Estimated Needs: Metabolic Cart Study Results: Current Nutrition Intake: Diet Supplements: Kyree Packet Diet Order: Adult Diet Diet Texture: Regular Adult Carbohydrate Restriction: Consistent CHO 2 ([id number] Steven, 80 g/meal) Adult Sodium Restriction: 2,000 mg Na Percent Meals Eaten (%): 75-100% of meals Diet Experience and Nutrition History: Diet Education Provided: Will monitor Pertinent home medications: Albuterol, Bumex, Insulin, Metformin, Ozempic, Aldactone Anglican needs: Nutrition Focused Physical Exam: Physical exam performed on (date): 05/02, 05/16 Temples (muscles): None Clavicle (muscle): None Shoulder (muscle): None Interosseous (muscle): None Calf (muscle): None Orbital (fat): None Triceps (fat): None Assessment of Malnutrition: Malnutrition Identified: No Nutrition Problem: Increased nutrient needs kcal, pro related to increased biological demand for healing as evidenced by right foot DM ulcer s/p amputation. Status of Nutrition Diagnosis: Ongoing Nutrition Interventions and Recommendations: - Continue regular, CC2, 2 gm sodium diet - Kyree BID (160 kcal, 14g total L-Arginine and 14g L-Glutamine + 5g total Collagen) to aid in wound healing - Please start daily MVI in addition - Optimization of bowel reg per team Nutrition Monitoring and Goals: - Pt will tolerate >75% avg of meal intakes (met) - Pt will maintain weight this admission (ongoing) - Blood Glucose <200mg/dl during admission (ongoing) Acuity Level: [address], LD [1] Past Medical History: Diagnosis Date Acute kidney injury 05/19/2024 Alcohol abuse, in remission Alcohol abuse, in remission Anxiety disorder, unspecified Anxiety Arthritis Atrial fibrillation ([facility]) CAP (community acquired pneumonia) 05/19/2024 Cellulitis 05/19/2024 CHF (congestive heart failure) COPD (chronic obstructive pulmonary disease) Depression GERD (gastroesophageal reflux disease) Hyperlipidemia Hypertension Left lower lobe pneumonia 05/19/2024 Sleep apnea Sleep apnea, obstructive Type 2 diabetes mellitus [2] Past Surgical History: Procedure Laterality Date ARTERIAL STENT PLACEMENT CHOLECYSTECTOMY GASTRIC BYPASS [3] atorvastatin, 40 mg, Oral, Nightly bisoprolol, 10 mg, Oral, BID bumetanide, 4 mg, Oral, TID cariprazine, 3 mg, Oral, Daily dilTIAZem CD, 120 mg, Oral, Daily ferrous sulfate, 324 mg, Oral, Every other day finasteride, 5 mg, Oral, Daily fluticasone, 2 spray, Each Nostril, Daily gabapentin, 600 mg, Oral, TID insulin lispro, 0-15 Units, Subcutaneous, TID with meals insulin lispro, 0-3 Units, Subcutaneous, Twice at night insulin regular, 250 Units, Subcutaneous, Daily with dinner And insulin regular, 20 Units, Subcutaneous, Daily with dinner insulin regular, 250 Units, Subcutaneous, Daily with breakfast And insulin regular, 30 Units, Subcutaneous, Daily with breakfast insulin regular, 80 Units, Subcutaneous, Daily before lunch Kyree, 1 packet, Oral, BID magnesium oxide, 800 mg, Oral, Daily miconazole, , Topical, BID pantoprazole, 40 mg, Oral, Daily before breakfast polyethylene glycol, 17 g, Oral, Daily rivaroxaban, 20 mg, Oral, Daily with dinner sodium chloride, 10 mL, Intravenous, q12h spironolactone, 100 mg, Oral, Daily tamsulosin, 0.4 mg, Oral, Daily venlafaxine XR, 150 mg, Oral, Daily [4] [5] PRN medications: acetaminophen, albuterol, glucose OR dextrose 10 % OR dextrose 10 % OR glucagon (human recombinant), guaiFENesin, ipratropium-albuterol, LORazepam, magnesium citrate,oxyCODONE, sodium chloride, Insert peripheral IV AND Saline lock IV AND sodium chloride AND sodium chloride * Care Plan - Ivan Slaughter RN - 05/16/2025 12:27 AM EST Problem: Skin Injury Risk Increased Goal: Skin Health and Integrity Outcome: Ongoing, Progressing Problem: Adult Inpatient Plan of Care Goal: Plan of Care Review Outcome: Ongoing, Progressing Flowsheets (Taken 05/16/2025 0022) Progress: improving Plan of Care Reviewed With: patient Goal: Patient-Specific Goal (Individualized) Outcome: Ongoing, Progressing Goal: Absence of Hospital-Acquired Illness or Injury Outcome: Ongoing, Progressing Goal: Optimal Comfort and Wellbeing Outcome: Ongoing, Progressing Problem: Fall Injury Risk Goal: Absence of Fall and Fall-Related Injury Outcome: Ongoing, Progressing Problem: Infection Goal: Absence of Infection Signs and Symptoms Outcome: Ongoing, Progressing Problem: Mobility Impairment Goal: Optimal Mobility Outcome: Ongoing, Progressing Intervention: Optimize Mobility Flowsheets (Taken 05/16/2025 0000) Activity Management: activity adjusted per tolerance Assistive Device Utilized: lift device Positioning/Transfer Devices: pillows Problem: Mobility Impairment Goal: Optimal Mobility Outcome: Ongoing, Progressing Problem: Diabetes Goal: Optimal Coping Outcome: Ongoing, Progressing Intervention: Support Wellbeing and Self-Management Success Flowsheets (Taken 05/16/202521) Supportive Measures: active listening utilized self-care encouraged Family/Support System Care: self-care encouraged Goal: Optimal Functional Ability Outcome: Ongoing, Progressing Goal: Blood Glucose Level Within Target Range Outcome: Ongoing, Progressing Intervention: Optimize Glycemic Control Flowsheets (Taken 05/16/2025 0000) Hyperglycemia Management: blood glucose monitored Goal: Minimize Hypoglycemia Risk Outcome: Ongoing, Progressing Problem: Comorbidity Management Goal: Maintenance of Asthma Control Outcome: Ongoing, Progressing Goal: Maintenance of Behavioral Health Symptom Control Outcome: Ongoing, Progressing Goal: Maintenance of COPD Symptom Control Outcome: Ongoing, Progressing Goal: Blood Glucose Level Within Target Range Outcome: Ongoing, Progressing Goal: Maintenance of Heart Failure Symptom Control Outcome: Ongoing, Progressing Goal: Blood Pressure in Desired Range Outcome: Ongoing, Progressing Goal: Maintenance of Osteoarthritis Symptom Control Outcome: Ongoing, Progressing Goal: Bariatric Home Regimen Maintained Outcome: Ongoing, Progressing Goal: Maintenance of Seizure Control Outcome: Ongoing, Progressing Problem: Wound Goal: Optimal Coping Outcome: Ongoing, Progressing Intervention: Support Patient and Family Response Flowsheets (Taken 05/16/2025 0022) Supportive Measures: active listening utilized self-care encouraged Family/Support System Care: self-care encouraged Goal: Optimal Pain Control and Function Outcome: Ongoing, Progressing Intervention: Prevent or Manage Pain Flowsheets (Taken 05/16/2025 0000) Pain Management Interventions: pain management plan reviewed with patient/caregiver pillow support provided position adjusted rest Sleep/Rest Enhancement: awakenings minimized regular sleep/rest pattern promoted Goal: Optimal Wound Healing Outcome: Ongoing, Progressing Goal: Optimal Functional Ability Outcome: Ongoing, Progressing Goal: Absence of Infection Signs and Symptoms Outcome: Ongoing, Progressing Goal: Improved Oral Intake Outcome: Ongoing, Progressing Goal: Skin Health and Integrity Outcome: Ongoing, Progressing Intervention: Optimize Skin Protection Flowsheets (Taken 05/16/2025 0000) Activity Management: activity adjusted per tolerance Pressure Reduction Techniques: frequent weight shift encouraged Head of Bed (HOB) Positioning: HOB lowered Problem: Pain Acute Goal: Optimal Pain Control and Function Outcome: Ongoing, Progressing Problem: Self-Care Deficit Goal: Improved Ability to Complete Activities of Daily Living Outcome: Ongoing, Progressing * Progress Notes - Selin Lee MD - 05/15/2025 4:58 PM EST Subjective No concerns. Doing well this morning. Denies any symptoms. Discussed updates about disposition. Review of Systems Objective Vitals Temp: [36.4 ??C (97.5 ??F)-36.8 ??C (98.2 ??F)] 36.4 ??C (97.6 ??F) Heart Rate: [62-75] 71 Resp: [15-17] 17 BP: (127-159)/(76-95) 159/90 Physical Exam Vitals reviewed. Constitutional: Appearance: Normal appearance. He is obese. HENT: Head: Normocephalic and atraumatic. Nose: Nose normal. Eyes: Extraocular Movements: Extraocular movements intact. Cardiovascular: Rate and Rhythm: Normal rate. Pulmonary: Effort: Pulmonary effort is normal. Abdominal: General: Abdomen is flat. Musculoskeletal: General: Normal range of motion. Cervical back: Normal range of motion. Comments: R 5th metatarsal absent with wound vac on lateral and plantar foot Skin: General: Skin is warm. Neurological: General: No focal deficit present. Mental Status: He is alert and oriented to person, place, and time. Psychiatric: Mood and Affect: Mood normal. Behavior: Behavior normal. 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 49 yo gentleman with obesity and T2DM admitted for R diabetic foot ulcer with osteomyelitis now s/pR 5th metatarsal amputation on 05/01 with ID and vascular following whose surgical pathology is negative for OM off antibiotics now awaiting placement at acute rehab Diabetic foot ulcer with 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 - P/w worsening wound R foot found to have elevated inflammatory markers and CT showing possible OMunable to do MRI 08/14 weight - Consults: vascular, ID - S/p amputation 05/01 - Wound vac placed 05/03 - Surgical pathology negative for OM as of 05/06 - Adult ID screening labs, needs hep B vaccine Plan: - Wound vac changes every 2 days , - NWB until vascular surgery follow-up in 1 month at least, scheduled for 05/30 DM, Poorly controlled Hyperglycemia - Home regimen 200 BID - BG ranges 200s - Transitioned to U500 on 05/07 per endo recs - Hospital regimen u500 : 270 units breakfast, 80 with lunch, and 250 with dinner . - Endocrine following, appreciate recs - Resume home Ozempic, patient supplied Urinary retention s/p barber - HX several months worsening progressive urinary retention since was hospitalized for abdominal infection which has been following with urology outpatient at [facility]. They have postulated this to be related to his diabetes and have had several voiding trials which have failed. Also has un dergone proctoscopy (?) which was normal. 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 and he were hoping to get a second opinion while here at - PSA WNL 05/06 - Barber care per protocol - Continue home flomax - Continue finasteride, started 05/06 - Urology consulted, No urologic intervention indicated at this time, recommend continuing indwelling barber with exchanges every 4-6 weeks for chronic urinary retention Prolonged QTC -dc trazodone for now, continue venlafaxine, vraylar, -frequent EKG , will not dc vraylar and effexor, patient has been stable with no arrhythmias noted -replace lytes PRN Chronic CHRF-home 2L HTN-BB AF-AC, dilt CHF-bumex TID, spironolactone HLD-statin COPD-inhalers A/D-vraylar, lorazepam, venlafaxine Insomnia-dc/d trazodone due to prolonged qtc GERD--PPI QUINN-?CPAP, needs sleep study outpatient Obesity-complicates care Diet-carb 1 DVT PPX AC FULL CODE Medically Ready for Discharge:Ready now, cardinal taylor denied admission, referred to complex discharge team due to weight being a barrier, I have independently reviewed and interpreted the labs, vitals, and medications administered in theelectronic medical record. Current condition is not at goal, severity is high due to risk of progression or systemic complication. On high risk drug therapy requiring intensive monitoring for toxicity. Appropriate home medicationsfor the above chronic conditions were reviewed, resumed and adjusted as needed daily. Given the patient's above acute and chronic medical conditions, current medical interventions patient is deemed medically high risk. Reviewed notes by consulting services to determine appropriate plan of care as in the note. I personally discussed plan and management with patient. Selin Lee [employer] Division of Hospital Medicine [facility] * Care Plan - Santy Garcia RN - 05/15/2025 11:50 AM EST Problem: Skin Injury Risk Increased Goal: Skin Health and Integrity Outcome: Ongoing, Progressing Problem: Adult Inpatient Plan of Care Goal: Plan of Care Review Outcome: Ongoing, Progressing Flowsheets (Taken 05/15/2025 1148) Progress: improving Plan of Care Reviewed With: patient Goal: Patient-Specific Goal (Individualized) Outcome: Ongoing, Progressing Goal: Absence of Hospital-Acquired Illness or Injury Outcome: Ongoing, Progressing Goal: Optimal Comfort and Wellbeing Outcome: Ongoing, Progressing Problem: Fall Injury Risk Goal: Absence of Fall and Fall-Related Injury Outcome: Ongoing, Progressing Problem: Infection Goal: Absence of Infection Signs and Symptoms Outcome: Ongoing, Progressing Problem: Mobility Impairment Goal: Optimal Mobility Outcome: Ongoing, Progressing Intervention: Optimize Mobility Flowsheets (Taken 05/15/2025 1148) Activity Management: activity adjusted per tolerance Problem: Mobility Impairment Goal: Optimal Mobility Outcome: Ongoing, Progressing Problem: Diabetes Goal: Optimal Coping Outcome: Ongoing, Progressing Intervention: Support Wellbeing and Self-Management Success Flowsheets (Taken 05/15/2025 1148) Supportive Measures: decision-making supported Family/Support System Care: self-care encouraged support provided Goal: Optimal Functional Ability Outcome: Ongoing, Progressing Intervention: Optimize Functional Ability Flowsheets (Taken 05/15/2025 1148) Activity Management: activity adjusted per tolerance Adaptive Equipment Use: used independently Self-Care Promotion: independence encouraged Goal: Blood Glucose Level Within Target Range Outcome: Ongoing, Progressing Goal: Minimize Hypoglycemia Risk Outcome: Ongoing, Progressing Intervention: Minimize and Manage Hypoglycemia Flowsheets (Taken 05/15/2025 1148) Hypoglycemia Management: blood glucose monitored Problem: Comorbidity Management Goal: Maintenance of Asthma Control Outcome: Ongoing, Progressing Goal: Maintenance of Behavioral Health Symptom Control Outcome: Ongoing, Progressing Goal: Maintenance of COPD Symptom Control Outcome: Ongoing, Progressing Goal: Blood Glucose Level Within Target Range Outcome: Ongoing, Progressing Goal: Maintenance of Heart Failure Symptom Control Outcome: Ongoing, Progressing Goal: Blood Pressure in Desired Range Outcome: Ongoing, Progressing Goal: Maintenance of Osteoarthritis Symptom Control Outcome: Ongoing, Progressing Goal: Bariatric Home Regimen Maintained Outcome: Ongoing, Progressing Goal: Maintenance of Seizure Control Outcome: Ongoing, Progressing Problem: Wound Goal: Optimal Coping Outcome: Ongoing, Progressing Intervention: Support Patient and Family Response Flowsheets (Taken 05/15/2025 1148) Supportive Measures: decision-making supported Family/Support System Care: self-care encouraged support provided Goal: Optimal Pain Control and Function Outcome: Ongoing, Progressing Goal: Optimal Wound Healing Outcome: Ongoing, Progressing Goal: Optimal Functional Ability Outcome: Ongoing, Progressing Goal: Absence of Infection Signs and Symptoms Outcome: Ongoing, Progressing Goal: Improved Oral Intake Outcome: Ongoing, Progressing Intervention: Promote and Optimize Oral Intake Flowsheets (Taken 05/15/2025 1148) Oral Nutrition Promotion: physical activity promoted Nutrition Interventions: food preferences provided Goal: Skin Health and Integrity Outcome: Ongoing, Progressing Problem: Pain Acute Goal: Optimal Pain Control and Function Outcome: Ongoing, Progressing Intervention: Optimize Psychosocial Wellbeing Flowsheets (Taken 05/15/2025 1148) Supportive Measures: decision-making supported Diversional Activities: television Problem: Self-Care Deficit Goal: Improved Ability to Complete Activities of Daily Living Outcome: Ongoing, Progressing * Progress Notes - Chayo Jennings RN - 05/15/2025 11:50 AM EST Case Management Adult Progress Note Gonzalo Smalls 49 y.o. male CSN: [id number] Admission: 04/27/2025 9:29 PM Primary Problem: Diabetic foot ulcer Anticipated Discharge Date: TBD Pt was referred to many SNF in and out of [place]. Few SNF are considering accepting the pt along with Merly Espinoza, ph#[phone]. RN LA spoke with Araceli- admission at [facility]. Araceli is stating that she is checking if they can order lift needed for the pt and will call back. Team aware. LOLA TOVAR will continue to follow and assist as needed. Chayo Jennings RN * Progress Notes - Aileen Leonardo, FITTING ROOM OPERATOR - 05/15/2025 8:25 AM EST Endocrine - Diabetes Consult follow-up: Subjective: 24 hour update: -transitioned to U500 insulin 05/08 -U500 insulin doses adjusted daily to obtain tighter glycemic control -AM BG 175, pre lunch 235 -patient reports eating honey nut Cherrios at breakfast -endorsing constipation with restarting Semaglutide [05/12]. Had similar issues at home, but struggling more while inpatient due to low mobility. Patient reported that mg citrate worked at home - discussed with primary team - primary team added medication to regimen I have reviewed the patient's blood glucose levels, labs, vitals, and insulin doses administered inthe electronic medical record. Review of Systems Constitutional: Positive for activity change. Negative for appetite change. HENT: Negative for trouble swallowing. Respiratory: Negative for shortness of breath. Sleep apnea Cardiovascular: Negative for chest pain. Hx of heart failure Gastrointestinal: Positive for constipation. Negative for abdominal pain and nausea. Endocrine: See 24 hour update Wearing CGM Genitourinary: Barber in place Skin: Positive for wound (bilateral lower extremities). Psychiatric/Behavioral: Positive for sleep disturbance. Negative for agitation and confusion. Objective: Physical Exam Constitutional: General: He is not in acute distress. Appearance: He is obese. He is ill-appearing. HENT: Head: Normocephalic and atraumatic. Mouth/Throat: Mouth: Mucous membranes are moist. Eyes: Pupils: Pupils are equal, round, and reactive to light. Cardiovascular: Rate and Rhythm: Normal rate. Pulmonary: Effort: Pulmonary effort is normal. No respiratory distress. Comments: Nasal cannula Genitourinary: Comments: Barber Musculoskeletal: General: No swelling. Skin: General: Skin is warm and dry. Findings: Lesion (bilateral lower extremities; new right toe amputation - wound vac in place) present. Neurological: Mental Status: He is alert and oriented to person, place, and time. Mental status is at baseline. Psychiatric: Mood and Affect: Mood normal. Thought Content: Thought content normal. Judgment: Judgment normal. BP 127/81 Pulse 69 Temp 36.6 ??C (97.8 ??F) (Oral) Resp 17 Ht 1.829 m (6') Wt (!) 248 kg (545 lb 10.2 oz) BMI 74.00 kg/m?? Medications: Current Scheduled Medications[1] Current Continuous Medications[2] Current PRN Medications[3] Diet Dietary Orders (From admission, onward) Start Ordered 05/02/25 1413 Adult diet Diet texture: Regular; Carbohydrate restriction: Consistent Carb 2 (80 gmmax/meal); Sodium restriction: 2,000 mg Na Diet effective now References: IDDSI Diet Texture Guide Question Answer Comment Diet texture Regular Carbohydrate restriction: Consistent Carb 2 (80 gm max/meal) Sodium restriction: 2,000 mg Na 05/02/25 1413 Lab Review: Results from last 7 days Lab Units 05/15/25 0224 SODIUM mmol/L 133* POTASSIUM mmol/L 3.3* CHLORIDE mmol/L 87* CO2 mmol/L 37* BUN mg/dL 15 CREATININE mg/dL 0.91 EGFR mL/min/1.73m*2 104.6 GLUCOSE mg/dL 162* CALCIUM mg/dL 9.2 Results from last 7 days Lab Units 05/15/25 0224 WBC 10*3/uL 8.81 HEMOGLOBIN g/dL 9.9* HEMATOCRIT % 33.3* PLATELETS 10*3/uL 286 Lab Results Component Value Date GLUCOSE 162 (H) 05/15/2025 GLUCOSE 282 (H) 05/14/2025 GLUCOSE 238 (H) 05/13/2025 PGLU 235 (H) 05/15/2025 PGLU 175 (H) 05/15/2025 PGLU 194 (H) 05/14/2025 PGLU 320 (H) 05/14/2025 PGLU 260 (H) 05/14/2025 PGLU 321 (H) 05/14/2025 PGLU 217 (H) 05/13/2025 PGLU 255 (H) 05/13/2025 I reviewed bg tracing in [facility] glucose timeline 05/15/25 ASSESSMENT Hospital Course: Gonzalo Smalls is a 49 y.o. male with hx of CHF, HTN, HLD, a.fib, type 2 DM [on U500 insulin], COPD, QUINN on nightly oxygen, recurrent UTIs, BPH, morbid obesity, and anxiety/depression. Patient presented to ED for evaluation of worsening right diabetic foot ulcer. Mr. Smalls presented to an OSH and Podiatry they are recommended to coming to for evaluation due to his size and delayed abilityto get him in the OR. Of note, Mr. Smalls is receiving enteral panel for recurrent UTI and has a chronic Barber. Per chart review it appears that the kidney infection is for ESBL E coli. ED lab work was significant for leukocytosis, anemia, hyperglycemia, hypokalemia, hypomagnesemia, elevated CRP and sed rate. 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 Hospital medicine was consulted for admission. Endocrine Diabetes team was consulted for glycemic management on 04/28/25. Patient on U500 insulin dosing at home. Daily Glucose and Insulin Total Daily Dose -consulted 04/28 AM BG 199 -05/06: 212-364, TDD 344 units -05/07 350-411 TDD 405 units -05/08: 273-388 TDD 446 units started on U500 insulin dosing in the evening -05/09: 283-398, TDD 425 units -05/10: 332-418 TDD 482 -05/11: 240-336 TDD 560 units -05/12: 233-315 TDD 560 units -05/13: 217-321 TDD 582 units -05/14: 194-320, TDD 655 units -A1c: Lab Results Component Value Date HGBA1C 8.9 (H) 04/29/2025 -Diet: regular CC2 [80 g/meal] -Steroids: none Diagnoses #diabetic foot ulcer -OR 05/01 for right 4th and 5th toe amputation #UTI -barber in place #obesity -BMI 81.99 -complicates all aspects of care - contributes to insulin resistance #diabetes mellitus - type 2 -Home medications: CGM: Dexcom G7 Insulin regimen: U500 insulin: prescription for 225 units BID patient reports taking 200 units BID --> first dispensed 03/24/2025 - last dispensed 04/24/2025. insulin pen Reports being on U500 insulin for about 1 month and glycemic control has significantly improved Non insulin diabetes medications: Ozempic - recently started increased dose 0.5 mg this past week Metformin 100 mg BID Failed/Discontinued meds: Glargine: last dispensed 04/17/2025 Novolog mix last dispensed 02/22/2025 Jardiance Did not tolerate Mounjaro due to GI issues, constipation -see inpatient diabetes plan of care below PLAN: Primary team requesting recommendations and orders -glucose improved overnight and into this AM -patient reports eating carb heavy breakfast this AM - honey nut cherrioes -After review of glucose trends and insulin delivery over the last 24 hours, titration of intensiveinsulin therapy was made to overall improve glycemic control and improve patient outcomes Current Hospital Regimen: Non insulin regimen: Patient restarted on Ozempic 0.25 mg once weekly, received last dose on 05/12 Insulin regimen: Basal: TID U500 dosing AM: 270 units U500, small increase to 280 units starting 05/16 Afternoon/lunch: 80 units U500 Dinner: 270 units U500 Bolus: none Correction: very resistant dosing 3:50>150 lispro at mealtimes; 1;50>250 lispro bedtime, 3am PRN -Continue intensive glucose monitoring due to increased risk for hyper/hypoglycemia secondary to insulin therapy -Will continue to assess blood glucose trends and adjust basal/bolus insulin therapy dose according -fsbg ac/hs when eating, q6h when NPO, on TF/TPN -correction insulin to be given for hyperglycemia, do not hold correction if patient does not eat. -hypoglycemia protocol in place -Please document the percentage of meals consumed in intake and output flowsheet. -please notify us when diet orders change or steroids added as this impacts our tx NOTE: -Patient utilizes U500 insulin pen at home. With the U500 pen, a conversion is not needed. Typically patient's required a 70% reduction in home U500 dosing. 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 Also discussed contacting [employer] directly for the financial assistance program. -patient with plans to discharge to [facility] once able - need to check with [facility] to see if they are okay with utilizing U500 insulin if patient is able to bring in his own supply Insulin regimen - would like patient to utilize U500 home dosing at [facility] Continue Dexcom G7 CGM Likely continue Ozempic Likely continue metformin May substitute for therapeutic equivalent per insurance and retail PharmD approval -Supplies/scripts needed: Ensure patient has working glucose meter and supplies as back-up to CGM DM/Endo team will continue to follow. Please notify us as patient nears discharge for final recommendations Please contact Aileen Leonardo APRN [place] Adult Inpatient Diabetes team via secure chat orpage us at [phone] during 7a-7p, Thursday-Thursday. For after hours please contact the on-call Endocrine Fellow. Thank you for the opportunity to participate in this patient's care. - Reviewed notes by primary team and consulting services to determine appropriate plan of care as in the note. - Discussed plan and management with patient and primary team Time Spent: I personally spent a total of 35 minutes on this encounter. This time includes face to face with patient, counseling and discussion and/or coordination of care. [1] atorvastatin, 40 mg, Oral, Nightly bisoprolol, 10 mg, Oral, BID bumetanide, 4 mg, Oral, TID cariprazine, 3 mg, Oral, Daily dilTIAZem CD, 120 mg, Oral, Daily ferrous sulfate, 324 mg, Oral, Every other day finasteride, 5 mg, Oral, Daily fluticasone, 2 spray, Each Nostril, Daily gabapentin, 600 mg, Oral, TID insulin lispro, 0-15 Units, Subcutaneous, TID with meals insulin lispro, 0-3 Units, Subcutaneous, Twice at night insulin regular, 250 Units, Subcutaneous, Daily with breakfast And insulin regular, 20 Units, Subcutaneous, Daily with breakfast insulin regular, 250 Units, Subcutaneous, Daily with dinner And insulin regular, 20 Units, Subcutaneous, Daily with dinner insulin regular, 80 Units, Subcutaneous, Daily before lunch Kyree, 1 packet, Oral, BID magnesium oxide, 800 mg, Oral, Daily miconazole, , Topical, BID pantoprazole, 40 mg, Oral, Daily before breakfast polyethylene glycol, 17 g, Oral, Daily potassium chloride, 40 mEq, Oral, q2h rivaroxaban, 20 mg, Oral, Daily with dinner sodium chloride, 10 mL, Intravenous, q12h spironolactone, 100 mg, Oral, Daily tamsulosin, 0.4 mg, Oral, Daily venlafaxine XR, 150 mg, Oral, Daily [2] [3] PRN medications: acetaminophen, albuterol, glucose OR dextrose 10 % OR dextrose 10 % OR glucagon (human recombinant), guaiFENesin, ipratropium-albuterol, LORazepam, magnesium citrate,oxyCODONE, sodium chloride, Insert peripheral IV AND Saline lock IV AND sodium chloride AND sodium chloride * Care Plan - Florina Hinojosa RN - 05/14/2025 10:38 PM EST Problem: Skin Injury Risk Increased Goal: Skin Health and Integrity Outcome: Ongoing, Progressing Problem: Adult Inpatient Plan of Care Goal: Plan of Care Review Outcome: Ongoing, Progressing Flowsheets (Taken 05/14/20252235) Progress: improving Outcome Evaluation: Reviewed of night plan of care with pt. pt verbalized understanding. Plan of Care Reviewed With: patient Goal: Patient-Specific Goal (Individualized) Outcome: Ongoing, Progressing Goal: Absence of Hospital-Acquired Illness or Injury Outcome: Ongoing, Progressing Goal: Optimal Comfort and Wellbeing Outcome: Ongoing, Progressing Problem: Fall Injury Risk Goal: Absence of Fall and Fall-Related Injury Outcome: Ongoing, Progressing Problem: Infection Goal: Absence of Infection Signs and Symptoms Outcome: Ongoing, Progressing Problem: Mobility Impairment Goal: Optimal Mobility Outcome: Ongoing, Progressing Problem: Mobility Impairment Goal: Optimal Mobility Outcome: Ongoing, Progressing Problem: Diabetes Goal: Optimal Coping Outcome: Ongoing, Progressing Goal: Optimal Functional Ability Outcome: Ongoing, Progressing Goal: Blood Glucose Level Within Target Range Outcome: Ongoing, Progressing Note: Pt poct blood glucose level was 194 and didn't need over night sliding scale insulin administered. Goal: Minimize Hypoglycemia Risk Outcome: Ongoing, Progressing Problem: Comorbidity Management Goal: Maintenance of Asthma Control Outcome: Ongoing, Progressing Goal: Maintenance of Behavioral Health Symptom Control Outcome: Ongoing, Progressing Goal: Maintenance of COPD Symptom Control Outcome: Ongoing, Progressing Goal: Blood Glucose Level Within Target Range Outcome: Ongoing, Progressing Goal: Maintenance of Heart Failure Symptom Control Outcome: Ongoing, Progressing Goal: Blood Pressure in Desired Range Outcome: Ongoing, Progressing Goal: Maintenance of Osteoarthritis Symptom Control Outcome: Ongoing, Progressing Goal: Bariatric Home Regimen Maintained Outcome: Ongoing, Progressing Goal: Maintenance of Seizure Control Outcome: Ongoing, Progressing Problem: Wound Goal: Optimal Coping Outcome: Ongoing, Progressing Goal: Optimal Pain Control and Function Outcome: Ongoing, Progressing Goal: Optimal Wound Healing Outcome: Ongoing, Progressing Problem: Pain Acute Goal: Optimal Pain Control and Function Outcome: Ongoing, Progressing Problem: Self-Care Deficit Goal: Improved Ability to Complete Activities of Daily Living Outcome: Ongoing, Progressing * Progress Notes - Benjamin White MBBS - 05/14/2025 12:13 PM EST Endocrine - Diabetes Consult follow-up: Subjective: 24 hour update: -No acute events overnight -transitioned to U500 insulin 05/08 -continues to be hyperglycemic despite increase made to u-500 and inclusion of VRD correction in addition to the u-500 -AM BG 321 -PO intake: patient endorses good appetite; eating 75-100% of all meals -patient laying in bed at time of visit. -reviewed new insulin regimen and patient voiced understanding of the plan -plan for acute rehab I have reviewed the patient's blood glucose levels, labs, vitals, and insulin doses administered inthe electronic medical record. Review of Systems Constitutional: Positive for activity change. Negative for chills and fever. Respiratory: Negative for shortness of breath Cardiovascular: Negative for chest pain and palpitations. Gastrointestinal: Negative for diarrhea, nausea and vomiting. Endocrine: See HPI Genitourinary: Barber catheter in place Skin: Positive for wound. Objective: Physical Exam Constitutional: General: He is not in acute distress. Appearance: He is obese. HENT: Head: Normocephalic and atraumatic. Right Ear: External ear normal. Left Ear: External ear normal. Nose: Nose normal. Mouth/Throat: Mouth: Mucous membranes are moist. Eyes: Conjunctiva/sclera: Conjunctivae normal. Pulmonary: Effort: Pulmonary effort is normal. No respiratory distress. Skin: General: Skin is warm and dry. Coloration: Skin is not jaundiced. Comments: Wound vac in place to right foot Neurological: Mental Status: He is alert. Psychiatric: Mood and Affect: Mood normal. BP 130/80 (BP Location: Right arm, Patient Position: Lying) Pulse 65 Temp 36.6 ??C (97.8 ??F) (Oral) Resp 15 Ht 1.829 m (6') Wt (!) 248 kg (545 lb 13.7 oz) BMI 74.03 kg/m?? Medications: Current Scheduled Medications[1] Current Continuous Medications[2] Current PRN Medications[3] Diet Dietary Orders (From admission, onward) Start Ordered 05/02/25 1413 Adult diet Diet texture: Regular; Carbohydrate restriction: Consistent Carb 2 (80 gm max/meal); Sodium restriction: 2,000 mg Na Diet effective now References: IDDSI Diet Texture Guide Question Answer Comment Diet texture Regular Carbohydrate restriction: Consistent Carb 2 (80 gm max/meal) Sodium restriction: 2,000 mg Na 05/02/25 1413 Lab Review: Results from last 7 days Lab Units 05/14/25 0145 SODIUM mmol/L 132* POTASSIUM mmol/L 3.5* CHLORIDE mmol/L 87* CO2 mmol/L 34* BUN mg/dL 16 CREATININE mg/dL 0.85 EGFR mL/min/1.73m*2 107.9 GLUCOSE mg/dL 282* CALCIUM mg/dL 9.2 Results from last 7 days Lab Units 05/14/25 0145 WBC 10*3/uL 7.88 HEMOGLOBIN g/dL 9.7* HEMATOCRIT % 31.7* PLATELETS 10*3/uL 273 Lab Results Component Value Date GLUCOSE 282 (H) 05/14/2025 GLUCOSE 238 (H) 05/13/2025 GLUCOSE 383 (H) 05/12/2025 PGLU 321 (H) 05/14/2025 PGLU 217 (H) 05/13/2025 PGLU 255 (H) 05/13/2025 PGLU 233 (H) 05/13/2025 PGLU 248 (H) 05/12/2025 PGLU 235 (H) 05/12/2025 PGLU 315 (H) 05/12/2025 PGLU 274 (H) 05/12/2025 I reviewed bg tracing in epic glucose timeline 05/14/25 ASSESSMENT Hospital Course: Gonzalo Smalls is a 49 y.o. male with hx of CHF, HTN, HLD, a.fib, type 2 DM [on U500 insulin], COPD, QUINN on nightly oxygen, recurrent UTIs, BPH, morbid obesity, and anxiety/depression. Patient presented to ED for evaluation of worsening right diabetic foot ulcer. Mr. Smalls presented to an OSH and Podiatry they are recommended to coming to for evaluation due to his size and delayed abilityto get him in the OR. Of note, Mr. Smalls is receiving enteral panel for recurrent UTI and has a chronic Barber. Per chart review it appears that the kidney infection is for ESBL E coli. ED lab work was significant for leukocytosis, anemia, hyperglycemia, hypokalemia, hypomagnesemia, elevated CRP and sed rate. 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 Hospital medicine was consulted for admission. Endocrine Diabetes team was consulted for glycemic management on 04/28/25. Patient on U500 insulin dosing at home. Daily Glucose and Insulin Total Daily Dose -consulted 04/28 AM BG 199 -04/30: 173-226, TDD 114 units -05/01: 222-316, TDD 133 units -05/02: 250-358, TDD 180 units -05/03: 258-372, TDD 220 units - 05/04: 236-335, TDD 226 units -05/05: 290-371, TDD 286 units -05/06: 212-364, TDD 344 units -05/07 350-411 TDD 405 units -05/08: 273-388 TDD 446 units -05/09: 283-398, TDD 425 units -05/10: 332-418 TDD 482 -05/11: 240-336 TDD 560 units -05/12: 233-315 TDD 560 units -05/13: 217-321 TDD 582 units -A1c: Lab Results Component Value Date HGBA1C 8.9 (H) 04/29/2025 -Diet: regular CC2 [80 g/meal] -Steroids: none Diagnoses #diabetic foot ulcer -OR 05/01 for right 4th and 5th toe amputation #UTI -barber in place #obesity -BMI 81.99 -complicates all aspects of care - contributes to insulin resistance #diabetes mellitus - type 2 -Home medications: CGM: Dexcom G7 Insulin regimen: U500 insulin: prescription for 225 units BID patient reports taking 200 units BID --> first dispensed 03/24/2025 - last dispensed 04/24/2025. insulin pen Reports being on U500 insulin for about 1 month and glycemic control has significantly improved Non insulin diabetes medications: Ozempic - recently started increased dose 0.5 mg this past week Metformin 100 mg BID Failed/Discontinued meds: Glargine: last dispensed 04/17/2025 Novolog mix last dispensed 02/22/2025 Jardiance Did not tolerate Mounjaro due to GI issues, constipation -see inpatient diabetes plan of care below PLAN: Primary team requesting recommendations and orders -After review of glucose trends and insulin delivery over the last 24 hours, the following changes made due to continuing hyperglycemia Patient restarted on Ozempic 0.25 mg once weekly, received last dose on 05/12 Current Hospital Regimen: Insulin regimen: Basal: U 500 270 units with breakfast, 80 units with lunch and 250 units with dinner Increased U 500 dinnertime dose to 270 units Correction: Continue very resistant dosing 3:50>150 lispro at mealtimes; 1;50>250 lispro bedtime, 3am PRN -Continue intensive glucose monitoring due to increased risk for hyper/hypoglycemia secondary to insulin therapy -Will continue to assess blood glucose trends and adjust basal/bolus insulin therapy dose according -fsbg ac/hs when eating, q6h when NPO, on TF/TPN -correction insulin to be given for hyperglycemia, do not hold correction if patient does not eat. -hypoglycemia protocol in place -Please document the percentage of meals consumed in intake and output flowsheet. -please notify us when diet orders change or steroids added as this impacts our tx NOTE: -Patient utilizes U500 insulin pen at home. With the U500 pen, a conversion is not needed. Typically patient's required a 70% reduction in home U500 dosing. 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 Also discussed contacting [employer] directly for the financial assistance program. -patient with plans to discharge to [facility] once able - need to check with [facility] to see if they are okay with utilizing U500 insulin if patient is able to bring in his own supply Insulin regimen - would like patient to utilize U500 home dosing at [facility] Continue Dexcom G7 CGM Likely continue Ozempic Likely continue metformin May substitute for therapeutic equivalent per insurance and retail PharmD approval -Supplies/scripts needed: Ensure patient has working glucose meter and supplies as back-up to CGM KAYLI Ellis, PGY 5, Endocrinology Fellow DM/Endo team will continue to follow. Please notify us as patient nears discharge for final recommendations Please contact KAYLI Ellis [place] Adult Inpatient Diabetes team via secure chat or page us at [phone] during 7a-7p, Thursday-Thursday. For after hours please contact the on-call Endocrine Fellow. Thank you for the opportunity to participate in this patient's care. - Reviewed notes by primary team and consulting services to determine appropriate plan of care as in the note. - Discussed plan and management with patient, bedside RN, endocrine pharmacist, team pharmacist andprimary team [1] atorvastatin, 40 mg, Oral, Nightly bisoprolol, 10 mg, Oral, BID bumetanide, 4 mg, Oral, TID cariprazine, 3 mg, Oral, Daily dilTIAZem CD, 120 mg, Oral, Daily ferrous sulfate, 324 mg, Oral, Every other day finasteride, 5 mg, Oral, Daily fluticasone, 2 spray, Each Nostril, Daily gabapentin, 600 mg, Oral, TID insulin lispro, 0-15 Units, Subcutaneous, TID with meals insulin lispro, 0-3 Units, Subcutaneous, Twice at night insulin regular, 250 Units, Subcutaneous, Daily with breakfast And insulin regular, 20 Units, Subcutaneous, Daily with breakfast insulin regular, 250 Units, Subcutaneous, Daily with dinner insulin regular, 80 Units, Subcutaneous, Daily before lunch Kyree, 1 packet, Oral, BID magnesium oxide, 800 mg, Oral, Daily miconazole, , Topical, BID pantoprazole, 40 mg, Oral, Daily before breakfast polyethylene glycol, 17 g, Oral, Daily rivaroxaban, 20 mg, Oral, Daily with dinner sodium chloride, 10 mL, Intravenous, q12h spironolactone, 100 mg, Oral, Daily tamsulosin, 0.4 mg, Oral, Daily venlafaxine XR, 150 mg, Oral, Daily [2] [3] PRN medications: acetaminophen, albuterol, glucose OR dextrose 10 % OR dextrose 10 % OR glucagon (human recombinant), guaiFENesin, ipratropium-albuterol, LORazepam, oxyCODONE, sodium chloride, Insert peripheral IV AND Saline lock IV AND sodium chloride AND sodium chloride Cosigned by Santhosh Cantor MD at 05/14/2025 5:38 PM EST Associated attestation - Santhosh Cantor MD - 05/14/2025 5:38 PM EST I saw and evaluated the patient with the fellow. I discussed the case with the fellow and agree with the findings and plan as documented. * Care Plan - Kaylin Robb RN - 05/14/2025 9:48 AM EST Problem: Skin Injury Risk Increased Goal: Skin Health and Integrity Outcome: Ongoing, Progressing Problem: Adult Inpatient Plan of Care Goal: Plan of Care Review Outcome: Ongoing, Progressing Flowsheets (Taken 05/14/2025945) Progress: improving Plan of Care Reviewed With: patient Goal: Patient-Specific Goal (Individualized) Outcome: Ongoing, Progressing Flowsheets Taken 05/14/2025945 Individualized Care Needs: see MAR Taken 05/14/2025 08 Patient/Family-Specific Goals (Include Timeframe): Patient will be comfortable during this shift Anxieties, Fears or Concerns: pain Goal: Absence of Hospital-Acquired Illness or Injury Outcome: Ongoing, Progressing Goal: Optimal Comfort and Wellbeing Outcome: Ongoing, Progressing Problem: Fall Injury Risk Goal: Absence of Fall and Fall-Related Injury Outcome: Ongoing, Progressing Problem: Infection Goal: Absence of Infection Signs and Symptoms Outcome: Ongoing, Progressing Problem: Mobility Impairment Goal: Optimal Mobility Outcome: Ongoing, Progressing Problem: Mobility Impairment Goal: Optimal Mobility Outcome: Ongoing, Progressing Problem: Mobility Impairment Goal: Optimal Mobility Outcome: Ongoing, Progressing Problem: Diabetes Goal: Optimal Coping Outcome: Ongoing, Progressing Goal: Optimal Functional Ability Outcome: Ongoing, Progressing Goal: Blood Glucose Level Within Target Range Outcome: Ongoing, Progressing Goal: Minimize Hypoglycemia Risk Outcome: Ongoing, Progressing Problem: Comorbidity Management Goal: Maintenance of Asthma Control Outcome: Ongoing, Progressing Goal: Maintenance of Behavioral Health Symptom Control Outcome: Ongoing, Progressing Goal: Maintenance of COPD Symptom Control Outcome: Ongoing, Progressing Goal: Blood Glucose Level Within Target Range Outcome: Ongoing, Progressing Goal: Maintenance of Heart Failure Symptom Control Outcome: Ongoing, Progressing Goal: Blood Pressure in Desired Range Outcome: Ongoing, Progressing Goal: Maintenance of Osteoarthritis Symptom Control Outcome: Ongoing, Progressing Goal: Bariatric Home Regimen Maintained Outcome: Ongoing, Progressing Goal: Maintenance of Seizure Control Outcome: Ongoing, Progressing Problem: Wound Goal: Optimal Coping Outcome: Ongoing, Progressing Goal: Optimal Pain Control and Function Outcome: Ongoing, Progressing Goal: Optimal Wound Healing Outcome: Ongoing, Progressing Intervention: Promote Wound Healing Flowsheets (Taken 05/14/2025945) Sleep/Rest Enhancement: awakenings minimized consistent schedule promoted family presence promoted massage given noise level reduced natural light exposure provided regular sleep/rest pattern promoted relaxation techniques promoted room darkened Problem: Pain Acute Goal: Optimal Pain Control and Function Outcome: Ongoing, Progressing Problem: Self-Care Deficit Goal: Improved Ability to Complete Activities of Daily Living Outcome: Ongoing, Progressing Intervention: Promote Activity and Functional [place] Flowsheets Taken 05/14/2025 0946 Self-Care Promotion: independence encouraged BADL personal objects within reach BADL personal routines maintained meal set-up provided Taken 05/14/2025 0800 Activity Assistance Provided: assistance, stand-by assistance, 2 people Taken 05/13/2025 0931 Adaptive Equipment Use: used independently Problem: Self-Care Deficit Goal: Improved Ability to Complete Activities of Daily Living Outcome: Ongoing, Progressing Intervention: Promote Activity and Functional [place] Flowsheets Taken 05/14/2025 0946 Self-Care Promotion: independence encouraged BADL personal objects within reach BADL personal routines maintained meal set-up provided Taken 05/14/2025 0800 Activity Assistance Provided: assistance, stand-by assistance, 2 people Taken 05/13/2025 0931 Adaptive Equipment Use: used independently * Progress Notes - Selin Lee MD - 05/14/2025 8:50 AM EST Subjective No concerns. Doing well this morning. Denies any symptoms. Hgb stable. Review of Systems Objective Vitals Temp: [36.3 ??C (97.3 ??F)-36.9 ??C (98.4 ??F)] 36.6 ??C (97.8 ??F) Heart Rate: [65-74] 65 Resp: [15-18] 15 BP: (117-149)/(59-82) 130/80 Physical Exam Vitals reviewed. Constitutional: Appearance: Normal appearance. He is obese. HENT: Head: Normocephalic and atraumatic. Nose: Nose normal. Eyes: Extraocular Movements: Extraocular movements intact. Cardiovascular: Rate and Rhythm: Normal rate. Pulmonary: Effort: Pulmonary effort is normal. Abdominal: General: Abdomen is flat. Musculoskeletal: General: Normal range of motion. Cervical back: Normal range of motion. Comments: R 5th metatarsal absent with wound vac on lateral and plantar foot Skin: General: Skin is warm. Neurological: General: No focal deficit present. Mental Status: He is alert and oriented to person, place, and time. Psychiatric: Mood and Affect: Mood normal. Behavior: Behavior normal. 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 49 yo gentleman with obesity and T2DM admitted for R diabetic foot ulcer with osteomyelitis now s/pR 5th metatarsal amputation on 05/01 with ID and vascular following whose surgical pathology is negative for OM off antibiotics now awaiting placement at acute rehab Diabetic foot ulcer with 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 - P/w worsening wound R foot found to have elevated inflammatory markers and CT showing possible OMunable to do MRI 08/14 weight - Consults: vascular, ID - S/p amputation 05/01 - Wound vac placed 05/03 - Surgical pathology negative for OM as of 05/06 - Adult ID screening labs, needs hep B vaccine Plan: - Wound vac changes every 2 days , - NWB until vascular surgery follow-up in 1 month at least, scheduled for 05/30 DM, Poorly controlled Hyperglycemia - Home regimen 200 BID - BG ranges 200s - Transitioned to U500 on 05/07 per endo recs - Hospital regimen u500 : 270 units breakfast, 80 with lunch, and 250 with dinner . - Endocrine following, appreciate recs - Resume home Ozempic, patient supplied Urinary retention s/p barber - HX several months worsening progressive urinary retention since was hospitalized for abdominal infection which has been following with urology outpatient at [facility]. They have postulated this to be related to his diabetes and have had several voiding trials which have failed. Also has un dergone proctoscopy (?) which was normal. 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 and he were hoping to get a second opinion while here at - PSA WNL 05/06 - Barber care per protocol - Continue home flomax - Continue finasteride, started 05/06 - Urology consulted, No urologic intervention indicated at this time, recommend continuing indwelling barber with exchanges every 4-6 weeks for chronic urinary retention Prolonged QTC -dc trazodone for now, continue venlafaxine, vraylar, -frequent EKG , will not dc vraylar and effexor, patient has been stable with no arrhythmias noted -replace lytes PRN Chronic CHRF-home 2L HTN-BB AF-AC, dilt CHF-bumex TID, spironolactone HLD-statin COPD-inhalers A/D-vraylar, lorazepam, venlafaxine Insomnia-dc/d trazodone due to prolonged qtc GERD--PPI QUINN-?CPAP, needs sleep study outpatient Obesity-complicates care Diet-carb 1 DVT PPX AC FULL CODE Medically Ready for Discharge:Ready now, cardinal taylor denied admission, referred to complex discharge team due to weight being a barrier, I have independently reviewed and interpreted the labs, vitals, and medications administered in theelectronic medical record. Current condition is not at goal, severity is high due to risk of progression or systemic complication. On high risk drug therapy requiring intensive monitoring for toxicity. Appropriate home medicationsfor the above chronic conditions were reviewed, resumed and adjusted as needed daily. Given the patient's above acute and chronic medical conditions, current medical interventions patient is deemed medically high risk. Reviewed notes by consulting services to determine appropriate plan of care as in the note. I personally discussed plan and management with patient. Selin Lee [employer] Division of Hospital Medicine [facility] * Care Plan - Asiya Nix RN - 05/13/2025 9:56 PM EDT Problem: Adult Inpatient Plan of Care Goal: Plan of Care Review 05/13/20252153 by Asiya Nix RN Outcome: Ongoing, Progressing 05/13/20252150 by Asiya Nix RN Outcome: Ongoing, Progressing Flowsheets (Taken 05/13/20251999) Progress: improving Plan of Care Reviewed With: patient Goal: Patient-Specific Goal (Individualized) 05/13/20252153 by Asiya Nix RN Outcome: Ongoing, Progressing Flowsheets (Taken 05/13/20251999) Patient/Family-Specific Goals (Include Timeframe): Pt will turn and reposition self when prompted every 2 hours today Individualized Care Needs: pt safety Anxieties, Fears or Concerns: none 05/13/20252150 by Asiya Nix RN Outcome: Ongoing, Progressing Flowsheets (Taken 05/13/20251999) Patient/Family-Specific Goals (Include Timeframe): Pt will turn and reposition self when prompted every 2 hours today Individualized Care Needs: pt safety Anxieties, Fears or Concerns: none Goal: Absence of Hospital-Acquired Illness or Injury 05/13/20252153 by Asiya Nix RN Outcome: Ongoing, Progressing 05/13/20252150 by Asiya Nix RN Outcome: Ongoing, Progressing Goal: Optimal Comfort and Wellbeing 05/13/20252153 by Asiya Nix RN Outcome: Ongoing, Progressing 05/13/20252150 by Asiya Nix RN Outcome: Ongoing, Progressing Problem: Skin Injury Risk Increased Goal: Skin Health and Integrity 05/13/20252153 by Asiya Nix RN Outcome: Ongoing, Progressing 05/13/20252150 by Asiya Nix RN Outcome: Ongoing, Progressing Intervention: Optimize Skin Protection Flowsheets (Taken 05/13/20251999) Pressure Reduction Techniques: frequent weight shift encouraged positioned off wounds pressure points protected Pressure Reduction Devices: positioning supports utilized Skin Protection: incontinence pads utilized silicone foam dressing in place skin sealant/moisture barrier applied Head of Bed (HOB) Positioning: HOB elevated Intervention: Promote and Optimize Oral Intake Flowsheets (Taken 05/13/20251999) Oral Nutrition Promotion: physical activity promoted rest periods promoted Nutrition Interventions: food preferences provided Problem: Fall Injury Risk Goal: Absence of Fall and Fall-Related Injury 05/13/20252153 by Asiya Nix RN Outcome: Ongoing, Progressing Note: Education provided, fall risk sign on door 05/13/20252150 by Asiya Nix RN Outcome: Ongoing, Progressing Problem: Infection Goal: Absence of Infection Signs and Symptoms 05/13/20252153 by Asiya Nix RN Outcome: Ongoing, Progressing 05/13/20252150 by Asiya Nix RN Outcome: Ongoing, Progressing Problem: Mobility Impairment Goal: Optimal Mobility 05/13/20252153 by Asiya Nix RN Outcome: Ongoing, Progressing 05/13/20252150 by Asiya Nix RN Outcome: Ongoing, Progressing Problem: Mobility Impairment Goal: Optimal Mobility 05/13/2025 215 by Asiya Nix RN Outcome: Ongoing, Progressing Note: patient prompted to reposition q2h 05/13/20252150 by Asiya Nix RN Outcome: Ongoing, Progressing Problem: Diabetes Goal: Optimal Coping 05/13/20252153 by Asiya Nix RN Outcome: Ongoing, Progressing 05/13/20252150 by Asiya Nix RN Outcome: Ongoing, Progressing Goal: Optimal Functional Ability 05/13/20252153 by Asiya Nix RN Outcome: Ongoing, Progressing 05/13/20252150 by Asiya Nix RN Outcome: Ongoing, Progressing Goal: Blood Glucose Level Within Target Range 05/13/20252153 by Asiya Nix RN Outcome: Ongoing, Progressing Note: Blood sugar monitored 05/13/20252150 by Asiya Nix RN Outcome: Ongoing, Progressing Goal: Minimize Hypoglycemia Risk 05/13/20252153 by Asiya Nix RN Outcome: Ongoing, Progressing 05/13/20252150 by Asiya Nix RN Outcome: Ongoing, Progressing Problem: Comorbidity Management Goal: Maintenance of Asthma Control 05/13/20252153 by Asiya Nix RN Outcome: Ongoing, Progressing Note: Oxygen therapy provided 05/13/20252150 by Asiya Nix RN Outcome: Ongoing, Progressing Goal: Maintenance of Behavioral Health Symptom Control 05/13/20252153 by Asiya Nix RN Outcome: Ongoing, Progressing 05/13/20252150 by Asiya Nix RN Outcome: Ongoing, Progressing Goal: Maintenance of COPD Symptom Control 05/13/20252153 by Asiya Nix RN Outcome: Ongoing, Progressing Note: Oxygen therapy provided 05/13/20252150 by Asiya Nix RN Outcome: Ongoing, Progressing Goal: Blood Glucose Level Within Target Range 05/13/20252153 by Asiya Nix RN Outcome: Ongoing, Progressing Note: Blood sugar monitored 05/13/20252150 by Asiya Nix RN Outcome: Ongoing, Progressing Goal: Maintenance of Heart Failure Symptom Control 05/13/20252153 by Asiya Nix RN Outcome: Ongoing, Progressing 05/13/20252150 by Asiya Nix RN Outcome: Ongoing, Progressing Goal: Blood Pressure in Desired Range 05/13/20252153 by Asiya iNx RN Outcome: Ongoing, Progressing Note: Blood pressure monitored 05/13/20252150 by Asiya Nxi RN Outcome: Ongoing, Progressing Goal: Maintenance of Osteoarthritis Symptom Control 05/13/20252153 by Asiya Nix RN Outcome: Ongoing, Progressing 05/13/20252150 by Asiya Nix RN Outcome: Ongoing, Progressing Goal: Bariatric Home Regimen Maintained 05/13/20252153 by Asiya Nix RN Outcome: Ongoing, Progressing 05/13/20252150 by Asiya Nix RN Outcome: Ongoing, Progressing Goal: Maintenance of Seizure Control 05/13/20252153 by Asiya Nix RN Outcome: Ongoing, Progressing 05/13/20252150 by Asiya Nix RN Outcome: Ongoing, Progressing Problem: Wound Goal: Optimal Coping 05/13/20252153 by Asiya Nix RN Outcome: Ongoing, Progressing 05/13/20252150 by Asiya Nix RN Outcome: Ongoing, Progressing Goal: Optimal Pain Control and Function 05/13/20252153 by Asiya Nix RN Outcome: Ongoing, Progressing 05/13/20252150 by Asiya Nix RN Outcome: Ongoing, Progressing Goal: Optimal Wound Healing 05/13/20252153 by Asiya Nix RN Outcome: Ongoing, Progressing Note: Wound care ongoing 05/13/20252150 by Asiya Nix RN Outcome: Ongoing, Progressing Intervention: Promote Wound Healing Flowsheets (Taken 05/13/20251999) Sleep/Rest Enhancement: awakenings minimized consistent schedule promoted regular sleep/rest pattern promoted relaxation techniques promoted room darkened Problem: Pain Acute Goal: Optimal Pain Control and Function 05/13/20252153 by Asiya Nix RN Outcome: Ongoing, Progressing Note: Pain management plan reviewed with pt, pain medication administered 05/13/20252150 by Asiya Nix RN Outcome: Ongoing, Progressing Problem: Self-Care Deficit Goal: Improved Ability to Complete Activities of Daily Living 05/13/20252153 by Asiya Nix RN Outcome: Ongoing, Progressing 05/13/20252150 by Asiya Nix RN Outcome: Ongoing, Progressing Intervention: Promote Activity and Functional [place] Flowsheets (Taken 05/13/20251999) Activity Assistance Provided: assistance, 2 people Self-Care Promotion: independence encouraged * Progress Notes - Benjamin Wihte MBBS - 05/13/2025 4:42 PM EDT Endocrine - Diabetes Consult follow-up: Subjective: 24 hour update: -No acute events overnight -transitioned to U500 insulin 05/08 -continues to be hyperglycemic despite increase made to u-500 and inclusion of VRD correction in addition to the u-500 -AM BG 233 -PO intake: patient endorses good appetite; eating 75-100% of all meals -patient laying in bed at time of visit. -reviewed new insulin regimen and patient voiced understanding of the plan -plan for acute rehab I have reviewed the patient's blood glucose levels, labs, vitals, and insulin doses administered inthe electronic medical record. Review of Systems Constitutional: Positive for activity change. Negative for chills and fever. Respiratory: Negative for shortness of breath Cardiovascular: Negative for chest pain and palpitations. Gastrointestinal: Negative for diarrhea, nausea and vomiting. Endocrine: See HPI Genitourinary: Barber catheter in place Skin: Positive for wound. Objective: Physical Exam Constitutional: General: He is not in acute distress. Appearance: He is obese. HENT: Head: Normocephalic and atraumatic. Right Ear: External ear normal. Left Ear: External ear normal. Nose: Nose normal. Mouth/Throat: Mouth: Mucous membranes are moist. Eyes: Conjunctiva/sclera: Conjunctivae normal. Pulmonary: Effort: Pulmonary effort is normal. No respiratory distress. Skin: General: Skin is warm and dry. Coloration: Skin is not jaundiced. Comments: Wound vac in place to right foot Neurological: Mental Status: He is alert. Psychiatric: Mood and Affect: Mood normal. BP 117/73 (BP Location: Right arm, Patient Position: Lying) Pulse 68 Temp 36.3 ??C (97.3 ??F) (Axillary) Resp 18 Ht 1.829 m (6') Wt (!) 247 kg (543 lb 14 oz) BMI 73.76 kg/m?? Medications: Current Scheduled Medications[1] Current Continuous Medications[2] Current PRN Medications[3] Diet Dietary Orders (From admission, onward) Start Ordered 05/02/25 1413 Adult diet Diet texture: Regular; Carbohydrate restriction: Consistent Carb 2 (80 gm max/meal); Sodium restriction: 2,000 mg Na Diet effective now References: IDDSI Diet Texture Guide Question Answer Comment Diet texture Regular Carbohydrate restriction: Consistent Carb 2 (80 gm max/meal) Sodium restriction: 2,000 mg Na 05/02/25 1413 Lab Review: Results from last 7 days Lab Units 05/13/25 0354 SODIUM mmol/L 131* POTASSIUM mmol/L 3.3* CHLORIDE mmol/L 87* CO2 mmol/L 37* BUN mg/dL 16 CREATININE mg/dL 0.96 EGFR mL/min/1.73m*2 98.1 GLUCOSE mg/dL 238* CALCIUM mg/dL 9.1 Results from last 7 days Lab Units 05/13/25 0354 WBC 10*3/uL 7.92 HEMOGLOBIN g/dL 9.9* HEMATOCRIT % 33.0* PLATELETS 10*3/uL 276 Lab Results Component Value Date GLUCOSE 238 (H) 05/13/2025 GLUCOSE 383 (H) 05/12/2025 GLUCOSE 338 (H) 05/11/2025 PGLU 255 (H) 05/13/2025 PGLU 233 (H) 05/13/2025 PGLU 248 (H) 05/12/2025 PGLU 235 (H) 05/12/2025 PGLU 315 (H) 05/12/2025 PGLU 274 (H) 05/12/2025 PGLU 348 (H) 05/12/2025 PGLU 272 (H) 05/11/2025 I reviewed bg tracing in epic glucose timeline 05/13/25 ASSESSMENT Hospital Course: Gonzalo Smalls is a 49 y.o. male with hx of CHF, HTN, HLD, a.fib, type 2 DM [on U500 insulin], COPD, QUINN on nightly oxygen, recurrent UTIs, BPH, morbid obesity, and anxiety/depression. Patient presented to ED for evaluation of worsening right diabetic foot ulcer. Mr. Smalls presented to an OSH and Podiatry they are recommended to coming to for evaluation due to his size and delayed abilityto get him in the OR. Of note, Mr. Smalls is receiving enteral panel for recurrent UTI and has a chronic Barber. Per chart review it appears that the kidney infection is for ESBL E coli. ED lab work was significant for leukocytosis, anemia, hyperglycemia, hypokalemia, hypomagnesemia, elevated CRP and sed rate. 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 Hospital medicine was consulted for admission. Endocrine Diabetes team was consulted for glycemic management on 04/28/25. Patient on U500 insulin dosing at home. Daily Glucose and Insulin Total Daily Dose -consulted 04/28 AM BG 199 -04/30: 173-226, TDD 114 units -05/01: 222-316, TDD 133 units -05/02: 250-358, TDD 180 units -05/03: 258-372, TDD 220 units - 05/04: 236-335, TDD 226 units -05/05: 290-371, TDD 286 units -05/06: 212-364, TDD 344 units -05/07 350-411 TDD 405 units -05/08: 273-388 TDD 446 units -05/09: 283-398, TDD 425 units -05/10: 332-418 TDD 482 -05/11: 240-336 TDD 560 units -05/12: 233-315 TDD 560 units -A1c: Lab Results Component Value Date HGBA1C 8.9 (H) 04/29/2025 -Diet: regular CC2 [80 g/meal] -Steroids: none Diagnoses #diabetic foot ulcer -OR 05/01 for right 4th and 5th toe amputation #UTI -barber in place #obesity -BMI 81.99 -complicates all aspects of care - contributes to insulin resistance #diabetes mellitus - type 2 -Home medications: CGM: Dexcom G7 Insulin regimen: U500 insulin: prescription for 225 units BID patient reports taking 200 units BID --> first dispensed 03/24/2025 - last dispensed 04/24/2025. insulin pen Reports being on U500 insulin for about 1 month and glycemic control has significantly improved Non insulin diabetes medications: Ozempic - recently started increased dose 0.5 mg this past week Metformin 100 mg BID Failed/Discontinued meds: Glargine: last dispensed 04/17/2025 Novolog mix last dispensed 02/22/2025 Jardiance Did not tolerate Mounjaro due to GI issues, constipation -see inpatient diabetes plan of care below PLAN: Primary team requesting recommendations and orders -After review of glucose trends and insulin delivery over the last 24 hours, the following changes made due to continuing hyperglycemia Patient restarted on Ozempic 0.25 mg once weekly, received dose yesterday 05/12 Current Hospital Regimen: Insulin regimen: Basal: 250 units U500 concentrated insulin with breakfast and dinner, 60 units U500 concentrated insulin with lunch Adjust to u500 to 270 units with breakfast, 80 units with lunch and 250 units with dinner Bolus: none Correction: Continue very resistant dosing 3:50>150 lispro at mealtimes; 1;50>250 lispro bedtime, 3am PRN -Continue intensive glucose monitoring due to increased risk for hyper/hypoglycemia secondary to insulin therapy -Will continue to assess blood glucose trends and adjust basal/bolus insulin therapy dose according -fsbg ac/hs when eating, q6h when NPO, on TF/TPN -correction insulin to be given for hyperglycemia, do not hold correction if patient does not eat. -hypoglycemia protocol in place -Please document the percentage of meals consumed in intake and output flowsheet. -please notify us when diet orders change or steroids added as this impacts our tx NOTE: -Patient utilizes U500 insulin pen at home. With the U500 pen, a conversion is not needed. Typically patient's required a 70% reduction in home U500 dosing. 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 Also discussed contacting [facility] directly for the financial assistance program. -patient with plans to discharge to [facility] once able - need to check with [facility] to see if they are okay with utilizing U500 insulin if patient is able to bring in his own supply Insulin regimen - would like patient to utilize U500 home dosing at [facility] Continue Dexcom G7 CGM Likely continue Ozempic Likely continue metformin May substitute for therapeutic equivalent per insurance and retail PharmD approval -Supplies/scripts needed: Ensure patient has working glucose meter and supplies as back-up to CGM KAYLI Ellis, PGY 5, Endocrinology Fellow DM/Endo team will continue to follow. Please notify us as patient nears discharge for final recommendations Please contact KAYLI Ellis [place] Adult Inpatient Diabetes team via secure chat or page us at [phone] during 7a-7p, Thursday-Thursday. For after hours please contact the on-call Endocrine Fellow. Thank you for the opportunity to participate in this patient's care. - Reviewed notes by primary team and consulting services to determine appropriate plan of care as in the note. - Discussed plan and management with patient, bedside RN, endocrine pharmacist, team pharmacist andprimary team [1] atorvastatin, 40 mg, Oral, Nightly bisoprolol, 10 mg, Oral, BID bumetanide, 4 mg, Oral, TID cariprazine, 3 mg, Oral, Daily dilTIAZem CD, 120 mg, Oral, Daily ferrous sulfate, 324 mg, Oral, Every other day finasteride, 5 mg, Oral, Daily fluticasone, 2 spray, Each Nostril, Daily gabapentin, 600 mg, Oral, TID insulin lispro, 0-15 Units, Subcutaneous, TID with meals insulin lispro, 0-3 Units, Subcutaneous, Twice at night [START ON 05/14/2025] insulin regular, 250 Units, Subcutaneous, Daily with breakfast And [START ON 05/14/2025] insulin regular, 20 Units, Subcutaneous, Daily with breakfast insulin regular, 250 Units, Subcutaneous, Daily with dinner [START ON 05/14/2025] insulin regular, 80 Units, Subcutaneous, Daily before lunch Kyree, 1 packet, Oral, BID magnesium oxide, 800 mg, Oral, Daily miconazole, , Topical, BID pantoprazole, 40 mg, Oral, Daily before breakfast polyethylene glycol, 17 g, Oral, Daily rivaroxaban, 20 mg, Oral, Daily with dinner sodium chloride, 10 mL, Intravenous, q12h spironolactone, 100 mg, Oral, Daily tamsulosin, 0.4 mg, Oral, Daily venlafaxine XR, 150 mg, Oral, Daily [2] [3] PRN medications: acetaminophen, albuterol, glucose OR dextrose 10 % OR dextrose 10 % OR glucagon (human recombinant), guaiFENesin, ipratropium-albuterol, LORazepam, oxyCODONE, sodium chloride, Insert peripheral IV AND Saline lock IV AND sodium chloride AND sodium chloride Cosigned by Santhosh Cantor MD at 05/14/2025 4:42 PM EST Associated attestation - Santhosh Cantor MD - 05/14/2025 4:42 PM EST I saw and evaluated the patient with the fellow. I discussed the case with the fellow and agree with the findings and plan as documented. * Care Plan - Kaylin Robb RN - 05/13/2025 9:32 AM EDT Problem: Skin Injury Risk Increased Goal: Skin Health and Integrity Outcome: Ongoing, Progressing Problem: Adult Inpatient Plan of Care Goal: Plan of Care Review Outcome: Ongoing, Progressing Flowsheets (Taken 05/13/2025930) Progress: improving Plan of Care Reviewed With: patient Goal: Patient-Specific Goal (Individualized) Outcome: Ongoing, Progressing Flowsheets (Taken 05/13/2025 0800) Patient/Family-Specific Goals (Include Timeframe): blood sugar will normalize during this stay Individualized Care Needs: diabetic education, see MAR Anxieties, Fears or Concerns: blood sugar level Goal: Absence of Hospital-Acquired Illness or Injury Outcome: Ongoing, Progressing Goal: Optimal Comfort and Wellbeing Outcome: Ongoing, Progressing Problem: Fall Injury Risk Goal: Absence of Fall and Fall-Related Injury Outcome: Ongoing, Progressing Problem: Fall Injury Risk Goal: Absence of Fall and Fall-Related Injury Outcome: Ongoing, Progressing Problem: Infection Goal: Absence of Infection Signs and Symptoms Outcome: Ongoing, Progressing Problem: Mobility Impairment Goal: Optimal Mobility Outcome: Ongoing, Progressing Problem: Mobility Impairment Goal: Optimal Mobility Outcome: Ongoing, Progressing Problem: Diabetes Goal: Optimal Coping Outcome: Ongoing, Progressing Goal: Optimal Functional Ability Outcome: Ongoing, Progressing Goal: Blood Glucose Level Within Target Range Outcome: Ongoing, Progressing Goal: Minimize Hypoglycemia Risk Outcome: Ongoing, Progressing Problem: Comorbidity Management Goal: Maintenance of Asthma Control Outcome: Ongoing, Progressing Goal: Maintenance of Behavioral Health Symptom Control Outcome: Ongoing, Progressing Goal: Maintenance of COPD Symptom Control Outcome: Ongoing, Progressing Goal: Blood Glucose Level Within Target Range Outcome: Ongoing, Progressing Goal: Maintenance of Heart Failure Symptom Control Outcome: Ongoing, Progressing Goal: Blood Pressure in Desired Range Outcome: Ongoing, Progressing Goal: Maintenance of Osteoarthritis Symptom Control Outcome: Ongoing, Progressing Goal: Bariatric Home Regimen Maintained Outcome: Ongoing, Progressing Goal: Maintenance of Seizure Control Outcome: Ongoing, Progressing Problem: Wound Goal: Optimal Coping Outcome: Ongoing, Progressing Goal: Optimal Pain Control and Function Outcome: Ongoing, Progressing Goal: Optimal Wound Healing Outcome: Ongoing, Progressing Intervention: Promote Wound Healing Flowsheets (Taken 05/13/2025930) Sleep/Rest Enhancement: awakenings minimized regular sleep/rest pattern promoted natural light exposure provided relaxation techniques promoted consistent schedule promoted noise level reduced room darkened Problem: Pain Acute Goal: Optimal Pain Control and Function Outcome: Ongoing, Progressing Problem: Self-Care Deficit Goal: Improved Ability to Complete Activities of Daily Living Outcome: Ongoing, Progressing Intervention: Promote Activity and Functional Dundy Flowsheets Taken 05/13/2025930 Adaptive Equipment Use: used independently Self-Care Promotion: independence encouraged meal set-up provided BADL personal objects within reach adaptive equipment use encouraged BADL personal routines maintained Taken 05/13/2025 0800 Activity Assistance Provided: assistance, 2 people * Progress Notes - Selin Lee MD - 05/13/2025 9:27 AM EDT Subjective No concerns. Doing well this morning. Denies any symptoms. Overnight his wound had a lot of bloody output via wound vac per patient. Review of Systems Objective Vitals Temp: [36.3 ??C (97.4 ??F)-36.7 ??C (98 ??F)] 36.4 ??C (97.5 ??F) Heart Rate: [60-70] 60 Resp: [18] 18 BP: (122-145)/(72-80) 145/76 Physical Exam Vitals reviewed. Constitutional: Appearance: Normal appearance. He is obese. HENT: Head: Normocephalic and atraumatic. Nose: Nose normal. Eyes: Extraocular Movements: Extraocular movements intact. Cardiovascular: Rate and Rhythm: Normal rate. Pulmonary: Effort: Pulmonary effort is normal. Abdominal: General: Abdomen is flat. Musculoskeletal: General: Normal range of motion. Cervical back: Normal range of motion. Comments: R 5th metatarsal absent with wound vac on lateral and plantar foot Skin: General: Skin is warm. Neurological: General: No focal deficit present. Mental Status: He is alert and oriented to person, place, and time. Psychiatric: Mood and Affect: Mood normal. Behavior: Behavior normal. 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 49 yo gentleman with obesity and T2DM admitted for R diabetic foot ulcer with osteomyelitis now s/pR 5th metatarsal amputation on 05/01 with ID and vascular following whose surgical pathology is negative for OM off antibiotics now awaiting placement at acute rehab Diabetic foot ulcer with 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 - P/w worsening wound R foot found to have elevated inflammatory markers and CT showing possible OMunable to do MRI 08/14 weight - Consults: vascular, ID - S/p amputation 05/01 - Wound vac placed 05/03 - Surgical pathology negative for OM as of 05/06 - Adult ID screening labs, needs hep B vaccine Plan: - Wound vac changes every 2 days , - NWB until vascular surgery follow-up in 1 month at least, scheduled for 05/30 DM, Poorly controlled Hyperglycemia - Home regimen 200 BID - BG ranges 200s - Transitioned to U500 on 05/07 per endo recs - Hospital regimen NPH 35 daily, U500 250 BID - Endocrine following, appreciate recs - Resume home Ozempic, patient supplied Urinary retention s/p barber - HX several months worsening progressive urinary retention since was hospitalized for abdominal infection which has been following with urology outpatient at [facility]. They have postulated this to be related to his diabetes and have had several voiding trials which have failed. Also has un dergone proctoscopy (?) which was normal. 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 and he were hoping to get a second opinion while here at - PSA WNL 05/06 - Barber care per protocol - Continue home flomax - Continue finasteride, started 05/06 - Urology consulted, No urologic intervention indicated at this time, recommend continuing indwelling barber with exchanges every 4-6 weeks for chronic urinary retention Prolonged QTC -dc trazodone for now, continue venlafaxine, vraylar, -frequent EKG , will not dc vraylar and effexor, patient has been stable with no arrhythmias noted -replace lytes PRN Chronic CHRF-home 2L HTN-BB AF-AC, dilt CHF-bumex TID, spironolactone HLD-statin COPD-inhalers A/D-vraylar, lorazepam, venlafaxine Insomnia-dc/d trazodone due to prolonged qtc GERD--PPI QUINN-?CPAP, needs sleep study outpatient Obesity-complicates care Diet-carb 1 DVT PPX AC FULL CODE Medically Ready for Discharge:Ready now, cardinal taylor denied admission, referral sent for swing beds, weight might be a barrier to discharge I have independently reviewed and interpreted the labs, vitals, and medications administered in theelectronic medical record. Current condition is not at goal, severity is high due to risk of progression or systemic complication. On high risk drug therapy requiring intensive monitoring for toxicity. Appropriate home medicationsfor the above chronic conditions were reviewed, resumed and adjusted as needed daily. Given the patient's above acute and chronic medical conditions, current medical interventions patient is deemed medically high risk. Reviewed notes by consulting services to determine appropriate plan of care as in the note. I personally discussed plan and management with patient. Selin Lee Soda Maker Division of [facility] Medicine [facility] * Care Plan - Genaro Haritha Yehuda - 05/12/2025 9:30 PM EDT Problem: Skin Injury Risk Increased Goal: Skin Health and Integrity Outcome: Ongoing, Progressing Problem: Adult Inpatient Plan of Care Goal: Plan of Care Review Outcome: Ongoing, Progressing Flowsheets (Taken 05/12/20252128) Progress: improving Plan of Care Reviewed With: patient Goal: Patient-Specific Goal (Individualized) Outcome: Ongoing, Progressing Flowsheets (Taken 05/12/20252004) Patient/Family-Specific Goals (Include Timeframe): Pt will verbalize a decrease in pain level with prn medications during this shift Individualized Care Needs: pain control Anxieties, Fears or Concerns: none stated Goal: Absence of Hospital-Acquired Illness or Injury Outcome: Ongoing, Progressing Goal: Optimal Comfort and Wellbeing Outcome: Ongoing, Progressing Problem: Fall Injury Risk Goal: Absence of Fall and Fall-Related Injury Outcome: Ongoing, Progressing Problem: Infection Goal: Absence of Infection Signs and Symptoms Outcome: Ongoing, Progressing Problem: Mobility Impairment Goal: Optimal Mobility Outcome: Ongoing, Progressing Problem: Mobility Impairment Goal: Optimal Mobility Outcome: Ongoing, Progressing Problem: Diabetes Goal: Optimal Coping Outcome: Ongoing, Progressing Goal: Optimal Functional Ability Outcome: Ongoing, Progressing Goal: Blood Glucose Level Within Target Range Outcome: Ongoing, Progressing Goal: Minimize Hypoglycemia Risk Outcome: Ongoing, Progressing Problem: Comorbidity Management Goal: Maintenance of Asthma Control Outcome: Ongoing, Progressing Goal: Maintenance of Behavioral Health Symptom Control Outcome: Ongoing, Progressing Goal: Maintenance of COPD Symptom Control Outcome: Ongoing, Progressing Goal: Blood Glucose Level Within Target Range Outcome: Ongoing, Progressing Goal: Maintenance of Heart Failure Symptom Control Outcome: Ongoing, Progressing Goal: Blood Pressure in Desired Range Outcome: Ongoing, Progressing Goal: Maintenance of Osteoarthritis Symptom Control Outcome: Ongoing, Progressing Goal: Bariatric Home Regimen Maintained Outcome: Ongoing, Progressing Goal: Maintenance of Seizure Control Outcome: Ongoing, Progressing Problem: Wound Goal: Optimal Coping Outcome: Ongoing, Progressing Goal: Optimal Pain Control and Function Outcome: Ongoing, Progressing Goal: Optimal Wound Healing Outcome: Ongoing, Progressing Intervention: Promote Wound Healing Flowsheets (Taken 05/12/20252128) Sleep/Rest Enhancement: awakenings minimized consistent schedule promoted natural light exposure provided noise level reduced regular sleep/rest pattern promoted relaxation techniques promoted room darkened Problem: Pain Acute Goal: Optimal Pain Control and Function Outcome: Ongoing, Progressing Problem: Self-Care Deficit Goal: Improved Ability to Complete Activities of Daily Living Outcome: Ongoing, Progressing Intervention: Promote Activity and Functional Dundy Flowsheets (Taken 05/12/20252128) Activity Assistance Provided: assistance, 2 people Self-Care Promotion: independence encouraged BADL personal objects within reach BADL personal routines maintained meal set-up provided * Progress Notes - Max Alexander - 05/12/2025 4:32 PM EDT Case Management Adult Progress Note Gonzalo Smalls 49 y.o. male CSN: [id number] Admission: 04/27/2025 9:29 PM Primary Problem: Diabetic foot ulcer Anticipated Discharge Date: TBD Plan of care reviewed with pt's care team; and per MD, pt is medically ready for discharge pending placement. SW sent 145 Referral via [facility]. SW will continue to follow-up with pt's MD and care team on their progress and discharge plan. Max Alexander, HUMAN RESOURCE ANALYST, PILE DRIVER OPERATOR HELPER Senior Garbage Truck Helper/Case Management [facility] * Progress Notes - Selin Lee MD - 05/12/2025 4:22 PM EDT Subjective No concerns. Doing well this morning. Denies any symptoms. Discussed that his weight is 2 greater than 500 lb which is a barrier to discharge. We will look for alternative options. Review of Systemsper HPI Objective Vitals Temp: [36.4 ??C (97.5 ??F)-36.9 ??C (98.4 ??F)] 36.4 ??C (97.6 ??F) Heart Rate: [60-70] 70 Resp: [12-16] 13 BP: (130-142)/(70-78) 137/78 Physical Exam Vitals reviewed. Constitutional: Appearance: Normal appearance. He is obese. HENT: Head: Normocephalic and atraumatic. Nose: Nose normal. Eyes: Extraocular Movements: Extraocular movements intact. Cardiovascular: Rate and Rhythm: Normal rate. Pulmonary: Effort: Pulmonary effort is normal. Abdominal: General: Abdomen is flat. Musculoskeletal: General: Normal range of motion. Cervical back: Normal range of motion. Comments: R 5th metatarsal absent with wound vac on lateral and plantar foot Skin: General: Skin is warm. Neurological: General: No focal deficit present. Mental Status: He is alert and oriented to person, place, and time. Psychiatric: Mood and Affect: Mood normal. Behavior: Behavior normal. 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 49 yo gentleman with obesity and T2DM admitted for R diabetic foot ulcer with osteomyelitis now s/pR 5th metatarsal amputation on 05/01 with ID and vascular following whose surgical pathology is negative for OM off antibiotics now awaiting placement at acute rehab Diabetic foot ulcer with 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 - P/w worsening wound R foot found to have elevated inflammatory markers and CT showing possible OMunable to do MRI 08/14 weight - Consults: vascular, ID - S/p amputation 05/01 - Wound vac placed 05/03 - Surgical pathology negative for OM as of 05/06 - Adult ID screening labs, needs hep B vaccine Plan: - Wound vac changes every 2 days , - NWB until vascular surgery follow-up in 1 month at least, scheduled for 05/30 DM, Poorly controlled Hyperglycemia - Home regimen 200 BID - BG ranges 200s - Transitioned to U500 on 05/07 per endo recs - Hospital regimen NPH 35 daily, U500 250 BID - Endocrine following, appreciate recs - Resume home Ozempic, patient supplied Urinary retention s/p barber - HX several months worsening progressive urinary retention since was hospitalized for abdominal infection which has been following with urology outpatient at [facility]. They have postulated this to be related to his diabetes and have had several voiding trials which have failed. Also has un dergone proctoscopy (?) which was normal. 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 and he were hoping to get a second opinion while here at - PSA WNL 05/06 - Barber care per protocol - Continue home flomax - Continue finasteride, started 05/06 - Urology consulted, No urologic intervention indicated at this time, recommend continuing indwelling barber with exchanges every 4-6 weeks for chronic urinary retention Prolonged QTC -dc trazodone for now, continue venlafaxine, vraylar, -frequent EKG , will not dc vraylar and effexor, patient has been stable with no arrhythmias noted -replace lytes PRN Chronic CHRF-home 2L HTN-BB AF-AC, dilt CHF-bumex TID, spironolactone HLD-statin COPD-inhalers A/D-vraylar, lorazepam, venlafaxine Insomnia-dc/d trazodone due to prolonged qtc GERD--PPI QUINN-?CPAP, needs sleep study outpatient Obesity-complicates care Diet-carb 1 DVT PPX AC FULL CODE Medically Ready for Discharge:Ready now, cardinal taylor denied admission, referral sent for swing beds, weight might be a barrier to discharge I have independently reviewed and interpreted the labs, vitals, [facility]. Current condition is not at goal, severity is high due to risk of progression or systemic complication. On high risk drug therapy requiring intensive monitoring for toxicity. Appropriate home medicationsfor the above chronic conditions were reviewed, resumed and adjusted as needed daily. Given the patient's above acute and chronic medical conditions, current medical interventions patient is deemed medically high risk. Reviewed notes by consulting services to determine appropriate plan of care as in the note. I personally discussed plan and management with patient. Selin Lee Soda Maker Division of Hospital Medicine [facility] * Progress Notes - Lynda Choudhury, FITTING ROOM OPERATOR - 05/12/2025 12:58 PM EDT Endocrine - Diabetes Consult follow-up: Subjective: 24 hour update: -No acute events overnight -transitioned to U500 insulin 05/08 -continues to be hyperglycemic despite increase made to u-500 and inclusion of VRD correction in addition to the u-500 -AM BG 274 -PO intake: patient endorses good appetite; eating 75-100% of all meals -patient laying in bed at time of visit. His family brought in his home med Ozempic but advised himto not take at this time until we discuss with primary team -reviewed new insulin regimen and patient voiced understanding of the plan -plan for acute rehab I have reviewed the patient's blood glucose levels, labs, vitals, and insulin doses administered inthe electronic medical record. Review of Systems Constitutional: Positive for activity change. Negative for chills and fever. Respiratory: Patient reports as long as he is wearing his oxygen he doesn't get short of breath Cardiovascular: Negative for chest pain and palpitations. Gastrointestinal: Negative for diarrhea, nausea and vomiting. Endocrine: See HPI Genitourinary: Barber catheter in place Skin: Positive for wound. Objective: Physical Exam Constitutional: General: He is not in acute distress. Appearance: He is obese. HENT: Head: Normocephalic and atraumatic. Right Ear: External ear normal. Left Ear: External ear normal. Nose: Nose normal. Mouth/Throat: Mouth: Mucous membranes are moist. Eyes: Conjunctiva/sclera: Conjunctivae normal. Pulmonary: Effort: Pulmonary effort is normal. No respiratory distress. Skin: General: Skin is warm and dry. Coloration: Skin is not jaundiced. Comments: Wound vac in place to right foot Neurological: Mental Status: He is alert. Psychiatric: Mood and Affect: Mood normal. BP 132/76 Pulse 60 Temp 36.9 ??C (98.4 ??F) Resp 16 Ht 1.829 m (6') Wt (!) 248 kg (547 lb2.9 oz) BMI 74.21 kg/m?? Medications: Current Scheduled Medications[1] Current Continuous Medications[2] Current PRN Medications[3] Diet Dietary Orders (From admission, onward) Start Ordered 05/02/25 1413 Adult diet Diet texture: Regular; Carbohydrate restriction: Consistent Carb 2 (80 gm max/meal); Sodium restriction: 2,000 mg Na Diet effective now References: IDDSI Diet Texture Guide Question Answer Comment Diet texture Regular Carbohydrate restriction: Consistent Carb 2 (80 gm max/meal) Sodium restriction: 2,000 mg Na 05/02/25 1413 Lab Review: Results from last 7 days Lab Units 05/12/25 0356 SODIUM mmol/L 130* POTASSIUM mmol/L 3.2* CHLORIDE mmol/L 85* CO2 mmol/L 36* BUN mg/dL 18 CREATININE mg/dL 0.86 EGFR mL/min/1.73m*2 107.5 GLUCOSE mg/dL 383* CALCIUM mg/dL 8.9 Results from last 7 days Lab Units 05/12/25 0356 WBC 10*3/uL 7.24 HEMOGLOBIN g/dL 9.4* HEMATOCRIT % 31.8* PLATELETS 10*3/uL 266 Lab Results Component Value Date GLUCOSE 383 (H) 05/12/2025 GLUCOSE 338 (H) 05/11/2025 GLUCOSE 416 (H) 05/09/2025 PGLU 348 (H) 05/12/2025 PGLU 272 (H) 05/11/2025 PGLU 258 (H) 05/11/2025 PGLU 240 (H) 05/11/2025 PGLU 318 (H) 05/11/2025 PGLU 336 (H) 05/11/2025 PGLU 398 (H) 05/10/2025 PGLU 418 (H) 05/10/2025 I reviewed bg tracing in [facility] glucose timeline 05/12/25 ASSESSMENT Hospital Course: Gonzalo Smalls is a 49 y.o. male with hx of CHF, HTN, HLD, a.fib, type 2 DM [on U500 insulin], COPD, QUINN on nightly oxygen, recurrent UTIs, BPH, morbid obesity, and anxiety/depression. Patient presented to ED for evaluation of worsening right diabetic foot ulcer. Mr. Smalls presented to an OSH and Podiatry they are recommended to coming to for evaluation due to his size and delayed abilityto get him in the OR. Of note, Mr. Smalls is receiving enteral panel for recurrent UTI and has a chronic Barber. Per chart review it appears that the kidney infection is for ESBL E coli. ED lab work was significant for leukocytosis, anemia, hyperglycemia, hypokalemia, hypomagnesemia, elevated CRP and sed rate. 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 Hospital medicine was consulted for admission. Endocrine Diabetes team was consulted for glycemic management on 04/28/25. Patient on U500 insulin dosing at home. Daily Glucose and Insulin Total Daily Dose -consulted 04/28 AM BG 199 -04/30: 173-226, TDD 114 units -05/01: 222-316, TDD 133 units -05/02: 250-358, TDD 180 units -05/03: 258-372, TDD 220 units - 05/04: 236-335, TDD 226 units -05/05: 290-371, TDD 286 units -05/06: 212-364, TDD 344 units -05/07 350-411 TDD 405 units -05/08: 273-388 TDD 446 units -05/09: 283-398, TDD 425 units -05/10: 332-418 TDD 482 -05/11: 240-336 TDD 560 units -05/12: 348 (0310), 274 (fasting) -A1c: Lab Results Component Value Date HGBA1C 8.9 (H) 04/29/2025 -Diet: regular CC2 [80 g/meal] -Steroids: none Diagnoses #diabetic foot ulcer -OR 05/01 for right 4th and 5th toe amputation #UTI -barber in place #obesity -BMI 81.99 -complicates all aspects of care - contributes to insulin resistance #diabetes mellitus - type 2 -Home medications: CGM: [employer] G7 Insulin regimen: U500 insulin: prescription for 225 units BID patient reports taking 200 units BID --> first dispensed 03/24/2025 - last dispensed 04/24/2025. insulin pen Reports being on U500 insulin for about 1 month and glycemic control has significantly improved Non insulin diabetes medications: Ozempic - recently started increased dose 0.5 mg this past week Metformin 100 mg BID Failed/Discontinued meds: Glargine: last dispensed 04/17/2025 Novolog mix last dispensed 02/22/2025 Jardiance Did not tolerate Mounjaro due to GI issues, constipation -see inpatient diabetes plan of care below PLAN: Primary team requesting recommendations and orders -After review of glucose trends and insulin delivery over the last 24 hours, the following changes made due to continuing hyperglycemia Discussed with primary team about restarted patient on Ozempic. This is non- formulary and patient will have to provide his medication from home. Primary team was okay with restarting and will start Ozempic 0.25 ml weekly pending approval by pharmacy. Once it has been approved will schedule dose andinform patient Current Hospital Regimen: Insulin regimen: Basal: 250 units U500 concentrated insulin BID Add u500 60 units with lunch Bolus: lispro 15 units with meals-Discontinue after breakfast dose Correction: very resistant dosing 3:50>150 lispro at mealtimes; 1;50>250 lispro bedtime, 3am PRN -Addendum: Patient approved to restart his Ozempic; 0.25 mg dose scheduled for 1600 today -Continue intensive glucose monitoring due to increased risk for hyper/hypoglycemia secondary to insulin therapy -Will continue to assess blood glucose trends and adjust basal/bolus insulin therapy dose according -fsbg ac/hs when eating, q6h when NPO, on TF/TPN -correction insulin to be given for hyperglycemia, do not hold correction if patient does not eat. -hypoglycemia protocol in place -Please document the percentage of meals consumed in intake and output flowsheet. -please notify us when diet orders change or steroids added as this impacts our tx NOTE: -Patient utilizes U500 insulin pen at home. With the U500 pen, a conversion is not needed. Typically patient's required a 70% reduction in home U500 dosing. 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 Also discussed contacting [facility] directly for the financial assistance program. -patient with plans to discharge to [place] once able - need to check with [facility] to see if they are okay with utilizing U500 insulin if patient is able to bring in his own supply Insulin regimen - would like patient to utilize U500 home dosing at [facility] Continue Dexcom G7 CGM Likely continue Ozempic Likely continue metformin May substitute for therapeutic equivalent per insurance and retail PharmD approval -Supplies/scripts needed: Ensure patient has working glucose meter and supplies as back-up to CGM Lynda Choudhury APRN DM/Endo team will continue to follow. Please notify us as patient nears discharge for final recommendations Please contact Lynda Choudhury APRN [place] Adult Inpatient Diabetes team via secure chat or page us at [phone] during 7a-7p, Thursday-Thursday. For after hours please contact the on-call Endocrine Fellow. Thank you for the opportunity to participate in this patient's care. - Reviewed notes by primary team and consulting services to determine appropriate plan of care as in the note. - Discussed plan and management with patient, family, bedside RN, endocrine pharmacist, team pharmacist and primary team Time Spent: I personally spent a total of 35 minutes on this encounter. This time includes face to face with patient, counseling and discussion and/or coordination of care. [1] atorvastatin, 40 mg, Oral, Nightly bisoprolol, 10 mg, Oral, BID bumetanide, 4 mg, Oral, TID cariprazine, 3 mg, Oral, Daily dilTIAZem CD, 120 mg, Oral, Daily ferrous sulfate, 324 mg, Oral, Every other day finasteride, 5 mg, Oral, Daily fluticasone, 2 spray, Each Nostril, Daily gabapentin, 600 mg, Oral, TID insulin lispro, 0-15 Units, Subcutaneous, TID with meals insulin lispro, 0-3 Units, Subcutaneous, Twice at night Insulin Lispro, 15 Units, Subcutaneous, TID with meals insulin regular, 250 Units, Subcutaneous, BID with meals Kyree, 1 packet, Oral, BID magnesium oxide, 800 mg, Oral, Daily magnesium sulfate, 4 g, Intravenous, Once miconazole, , Topical, BID pantoprazole, 40 mg, Oral, Daily before breakfast polyethylene glycol, 17 g, Oral, Daily potassium chloride, 40 mEq, Oral, q2h rivaroxaban, 20 mg, Oral, Daily with dinner sodium chloride, 10 mL, Intravenous, q12h spironolactone, 100 mg, Oral, Daily tamsulosin, 0.4 mg, Oral, Daily venlafaxine XR, 150 mg, Oral, Daily [2] [3] PRN medications: acetaminophen, albuterol, glucose OR dextrose 10 % OR dextrose 10 % OR glucagon (human recombinant), guaiFENesin, ipratropium-albuterol, LORazepam, oxyCODONE, sodium chloride, Insert peripheral IV AND Saline lock IV AND sodium chloride AND sodium chloride * Progress Notes - Isiah Mckeon - 05/12/2025 12:32 PM EDT Physical Therapy Re-Assessment Patient Name: Gonzalo Smalls Today's Date: 05/12/2025 PT Discharge Recommendations: Acute rehab Equipment Recommended: Defer to facility History Gonzalo Smalls is 49 y.o. male admitted 04/27/2025 for work-up of Diabetic foot ulcer. Hospital Course 1. Other chronic osteomyelitis of right foot ([facility]) 2. Diabetic foot ulcer with osteomyelitis 3. Uncontrolled type 2 diabetes mellitus with hyperglycemia, with long-term current use of insulin 4. Type 2 diabetes mellitus with diabetic peripheral angiopathy without gangrene, with long-term current use of insulin Procedures 05/01/2025 Procedure(s): AMPUTATION,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 4th Past Medical History Patient has a past medical history of Acute kidney injury (05/19/2024), Alcohol abuse, in remission, Anxiety disorder, unspecified, Arthritis, Atrial fibrillation ([facility]/HCC), CAP (community acquired pneumonia) (05/19/2024), Cellulitis (05/19/2024), CHF (congestive heart failure), COPD (chronic obstru ctive pulmonary disease), Depression, GERD (gastroesophageal reflux disease), Hyperlipidemia, Hypertension, Left lower lobe pneumonia (05/19/2024), Sleep apnea, Sleep apnea, obstructive, and Type 2 diabetes mellitus. Past Surgical History Patient has a past surgical history that includes Cholecystectomy; Gastric bypass; and arterial stent placement. Precautions Right Lower Extremity Weight Bearing Status: Non-Weight Bearing Medical Precautions: Fall precautions Subjective Pt was agreeable to working with PT today. He reports he does not like the chair and also that he hasn't been sitting up to EOB since last PT session. He was encouraged to be up every day and verbalized understanding. Participants in Care Family/Caregiver Present: No Fpga Engineer: Not Applicable Presentation Oxygen Therapy: Supplemental oxygen O2 Delivery Method: Nasal cannula O2 Flow Rate (L/min): 2 L/min Lines and Tubes: Telemetry, Wound vac, Urinary catheter, PICC Pre-Session: Supine, Head of bed elevated, Lines intact Pre-Session Comments: RN consented to treatment Post-Session: Supine, Head of bed elevated, Lines intact, RN notified, Call light in reach Post-Session Comments: Pt positioned for comfort, all needs in reach. Home Living/Set-Up Lives With: Spouse (and 15 yo daughter) Home Type: House Home Adaptive Equipment: Rolling walker, Cane (primarily cane) Home Layout: One level, Stairs to enter with rails Number of Stairs: 3 Bathroom: Tub/Shower: Tub/Shower combo, Tub transfer bench Bathroom: Toilet: Standard Bathroom: Accessibility: Accessible Home Living Comments: Pt reports he does not drive at baseline due poor sensation in feet. Pt has access to 24/7 assistance at discharge. Prior Level of Function Receives Help From: Spouse Mobility Dundy: Independent gait with device ADL Performance: Needs assistance Bathing: Needs assist Upper Body Dressing: Needs assist Lower Body Dressing: Needs assist Grooming: Needs assist Toileting: Independent Eating: Independent Home Management Skills: Needs assist Patient/Family Goals Return home at [facility] Objective Pain Pt reported 7/10 pain in back. Their pain was improved during this session. PT provided increased mobility and repositioning and pt was positioned for comfort at the end of the session. Delirium Screening RASS: Alert and calm Confusion Assessment Method-ICU (CAM-ICU/PCAM-ICU) Feature 3: Altered Level of Consciousness: Negative Cognition Overall Cognitive Status: Within Functional Limits Arousal/Alertness: Appropriate responses to stimuli Mood/Behavior: Alert Orientation Level: Oriented X4 Single Step Commands: Consistently, 100% of the time Multi-Step Commands: Consistently, 100% of the time Method of Communication: Verbal Vision - Basic Assessment Baseline Vision: Glasses reading Current Vision: Intact Vision Comments: Pt denies any new changes in vision Right Upper Extremity Examination RUE ROM Assessment RUE Assessment: Within Functional Limits Manual Muscle Testing - RUE: Within functional limits Sensation Light Touch: Right Upper Extremity: Intact Left Upper Extremity Examination LUE ROM Assessment LUE Assessment: Within Functional Limits Manual Muscle Testing - LUE: Within functional limits Sensation Light Touch: Left Upper Extremity: Intact Right Lower Extremity Examination RLE ROM Assessment RLE Assessment: Within Functional Limits Manual Muscle Testing - RLE: Within functional limits except Hip flexion: 3+ Hip Extension: 3+ Ankle Dorsiflexion: 3+ Sensation Light Touch: Right Lower Extremity: Absent (in feet, sensation improving at mid-funk) Left Lower Extremity Examination LLE Assessment: Within Functional Limits Manual Muscle Testing: Within functional limits Sensation Light Touch: Left Lower Extremity: Absent (in feet, sensation improving at mid-funk) Bed Mobility Bed Mobility Exam: Scooting/Bridging Level of Dundy: Contact guard (scooting hips forward to edge of bed) Physical/Nonphysical Assist: Verbal Cues, Minimal cues Assistive Device: Overhead trapeze Bed Mobility Exam: Supine to Sit Level of Dundy: Minimum assist (75% patient's effort) Physical/Nonphysical Assist: HOB elevated, Verbal Cues Assistive Device: Overhead trapeze Bed Mobility Exam: Sit to Supine Level of Dundy: Stand-by assist Physical/Nonphysical Assist: Verbal Cues, Minimal cues Assistive Device: Overhead trapeze Transfers Transfer Exam: Sit to stand Level of Dundy: Maximum assist (25% patient's effort) (x3 reps from edge of bed, good adherence to NWB RLE) Physical/Nonphysical Assist: Verbal Cues, Nonverbal cues (demo/gestures), Additional assist utilized for safety Assistive Device: Walker, rolling (bariatric) Transfer Exam: Stand to Sit Level of Dundy: Maximum assist (25% patient's effort) Physical/Nonphysical Assist: Verbal Cues, Nonverbal cues (demo/gestures), Additional assist utilized for safety Assistive Device: Walker, rolling (bariatric) Balance Postural Appearance Posture: Within Functional Limits, Forward head Static Sitting Balance Static Sitting-Balance Support: No upper extremity support, Feet supported Static Sitting-Level of Assistance: Standby assist Dynamic Sitting Balance Dynamic Sitting-Balance Support: No upper extremity support, Feet supported Dynamic Sitting-Balance: Anterior/Posterior weight shifts, Lateral weight shifts Level of Assistance: Contact guard Static Standing Balance Static Standing-Balance Support: Right upper extremity support, Left upper extremity support (isabella RW) Static Standing-Level of Assistance: Maximum assistance Therapeutic Activity (30 minutes) Pt working on improving bed mobility, transfers, activity tolerance, and safety awareness through functional mobility today. PT provided min verbal and tactile cues for sequencing with supine to sit transfer including: reaching for bed rail and focusing on pushing to sit up rather than pulling to sit. PT further providing verbal and tactile cues and contact guard assist for scooting to EOB to place feet on the ground to improve base of support, seated balance, and posture. Once sitting, pt reported dizziness and was cued on focusing on a single point. Dizziness was improved with time and withacclimating to upright position. Pt's gaze also observed and demonstrating no nystagmus during changes in position. During sit to stand transfers, PT provided mod verbal and tactile cues for scootinglegs back to improve base of support and body mechanics, anteriorly scooting to position center of gravity over base of support, placing hands on stable surfaces to improve safety, using momentum strategy for standing, and proper use of assistive device for support. Pt aware of NWB status and bale to maintain NWB for 3 stands. Once standing each time, PT further provided cues for increasing hip extension, scapular retraction, and upright posture. He was able to stand for ~15 second each time before becoming fatigued. Following activity pt was positioned for comfort and pressure relief. Therapeutic Exercise (13 minutes) THERAPEUTIC EXERCISE Treatment Minutes 13 Interventions PT providing verbal and tactile cuing, visual demonstration, and feedback throughout exercises. Pt demonstrated good tolerance to exercises. HEP reviewed and all questions answered. Increased time to rest between exercises. Extremity Position Exercises Reps Sets Bilateral LE AROM sitting unsupported EOB Leg press using L LE and blue resistance band, hip abduction / adduction with bilateral legs and using blue resistance band 10 1 \ Standardized Assessments Standardized Assessments Standardized Assessments: AMPAC 6-Clicks Mobility Assessment AMPAC 6-Clicks Mobility Assessment Difficulty patient has turning over in bed (including adjusting bedclothes, sheets, and blankets)?:A little Difficulty patient has sitting down on and standing up from a chair with arms (wheelchair, bedside commode, etc.)?: A lot Difficulty patient has moving from lying on back to sitting on the side of the bed?: A little How much help does the patient need moving to and from a bed to a chair (including a wheelchair)?: Unable How much help does the patient need to walk in hospital room?: Unable How much help does the patient need climbing 3-5 steps with a railing?: Unable [facility] 6-Clicks Mobility Assessment Total : 11 Assessment Pt is continuing to demonstrate decreased mobility from baseline and is continuing to demonstrate difficulty with standing / transferring d/t NWB status. Otherwise he has required between SBA and Lester for bed mobility tasks. At this time pt remains unable to safely navigate his home environment and will benefit from continued skilled PT services for addressing his deficits and for helping him progress back to PLOF. Recommend acute inpatient rehab to maximize return to prior level of function. Anticipate pt will be able to tolerate 3 hours of skilled therapy/day as their medical status progresses and will benefit from multidisciplinary rehabilitation services as well as daily physician overs ight. Impairments: Decreased endurance, ventilation, and/or gas exchange, Impaired gait dynamics/performance, Decreased strength, Impaired locomotion, Pain, Impaired functional mobility/transfers, Impairedbalance Activity Limitations: Inability to ambulate community distances, Inability to complete ADLs independently, Inability to ambulate independently, Inability to transfer independently, Inability to ambulate household distances Participation Restrictions: Self-care, Home management, Community leisure Activity Tolerance: Tolerates 30 min activity with multiple rests Evaluation/Treatment Tolerance: Patient limited by pain, Patient limited by fatigue Diagnosis: Impaired functional mobility and decreased activity tolerance Rehab Potential: Good, to achieve stated therapy goals PT Recommendations Discharge Destination: Acute rehab Discharge Equipment: Defer to facility Plan Planned PT Interventions Balance training, Bed mobility training, Gait training, Transfer training, ROM, Strengthening, Functional Mobility PT Frequency 2 - 5 times per week PT Duration 2 weeks Goals PT GOAL DETAILS DATE ASSESSED STATUS PROGRESS PT Goal 1: Pt will be IND with HEP and discharge recommendations. PT Goal 1 Established Date: 04/28/25 PT Goal 1 Time Frame: 2 weeks 05/12/25 Goal ongoing Continuing progress towards goal PT Goal 2: Pt will perform sup<>sit with CGA. PT Goal 2 Established Date: 04/28/25 PT Goal 2 Time Frame: 2 weeks 05/12/25 Goal not met Good progress towards goal PT Goal 3: Pt will perform STS with LRAD and CGA. PT Goal 3 Established Date: 04/28/25 PT Goal 3 Time Frame: 2 weeks 05/12/25 Goal not met Good progress towards goal PT Goal 4: Pt will ambulate 50' with LRAD and CGA. PT Goal 4 Established Date: 04/28/25 PT Goal 4 Time Frame: 2 weeks 05/12/25 Goal not met, Goal ongoing Progress slower than expected PT Goal 5: Pt will navigate up/down 2 steps with CGA. PT Goal 5 Established Date: 04/28/25 PT Goal 5 Time Frame: 2 weeks 05/12/25 Goal not met, Goal ongoing Progress slower than expected Written by Isiah Mckeon on 05/12/25 at 1:53 PM. * Progress Notes - Beatriz Gaspar - 05/12/2025 12:31 PM EDT Occupational Therapy Re-Assessment Patient Name: Gonzalo Smalls Today's Date: 05/12/2025 OT Discharge Recommendations: Acute rehab Equipment Recommended: Defer to facility History Gonzalo Smalls is 49 y.o. male admitted 04/27/2025 for work-up of Diabetic foot ulcer. Hospital Course 1. Other chronic osteomyelitis of right foot (CMS/HCC) 2. Diabetic foot ulcer with osteomyelitis 3. Uncontrolled type 2 diabetes mellitus with hyperglycemia, with long-term current use of insulin 4. Type 2 diabetes mellitus with diabetic peripheral angiopathy without gangrene, with long-term current use of insulin Procedures 05/01/2025 Procedure(s): AMPUTATION,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 4th Past Medical History Patient has a past medical history of Acute kidney injury (05/19/2024), Alcohol abuse, in remission, Anxiety disorder, unspecified, Arthritis, Atrial fibrillation (CMS/HCC), CAP (community acquired pneumonia) (05/19/2024), Cellulitis (05/19/2024), CHF (congestive heart failure), COPD (chronic obstru ctive pulmonary disease), Depression, GERD (gastroesophageal reflux disease), Hyperlipidemia, Hypertension, Left lower lobe pneumonia (05/19/2024), Sleep apnea, Sleep apnea, obstructive, and Type 2 diabetes mellitus. Past Surgical History Patient has a past surgical history that includes Cholecystectomy; Gastric bypass; and arterial stent placement. Precautions Right Lower Extremity Weight Bearing Status: Non-Weight Bearing Medical Precautions: Fall precautions Subjective Pt and RN agreeable to OT re-assessment. Pt is pleasant and hardworking throughout session. Participants in Care Family/Caregiver Present: No Fpga Engineer: Not Applicable Presentation Oxygen Therapy: Supplemental oxygen O2 Delivery Method: Nasal cannula O2 Flow Rate (L/min): 2 L/min Lines and Tubes: Telemetry, Wound vac, Urinary catheter, PICC Pre-Session: Supine, Head of bed elevated, Lines intact Pre-Session Comments: RN consented to treatment Post-Session: Supine, Head of bed elevated, Lines intact, RN notified, Call light in reach Post-Session Comments: Pt positioned for comfort, all needs in reach. Home Living/Set-Up Lives With: Spouse (and 15 yo daughter) Home Type: House Home Adaptive Equipment: Rolling walker, Cane (primarily cane) Home Layout: One level, Stairs to enter with rails Number of Stairs: 3 Bathroom: Tub/Shower: Tub/Shower combo, Tub transfer bench Bathroom: Toilet: Standard Bathroom: Accessibility: Accessible Home Living Comments: Pt reports he does not drive at baseline due poor sensation in feet. Pt has access to 24/7 assistance at discharge. Prior Level of Function Receives Help From: Spouse Mobility Dundy: Independent gait with device ADL Performance: Needs assistance Bathing: Needs assist Upper Body Dressing: Needs assist Lower Body Dressing: Needs assist Grooming: Needs assist Toileting: Independent Eating: Independent Home Management Skills: Needs assist Patient/Family Goals Statement Pt desires to improve overall independence and return home when able to. Objective Pain Pt reports 7/10 pain in lower back. Provided with repositioning and rest. Delirium Screening RASS: Alert and calm Confusion Assessment Method-ICU (CAM-ICU/PCAM-ICU) Feature 3: Altered Level of Consciousness: Negative Cognition Overall Cognitive Status: Within Functional Limits Arousal/Alertness: Appropriate responses to stimuli Mood/Behavior: Alert Orientation Level: Oriented X4 Single Step Commands: Consistently, 100% of the time Multi-Step Commands: Consistently, 100% of the time Method of Communication: Verbal Vision - Basic Assessment Baseline Vision: Glasses reading Current Vision: Intact Tracking: Intact Vision Comments: Pt denies any new changes in vision Right Upper Extremity Examination RUE ROM Assessment RUE Assessment: Within Functional Limits Manual Muscle Testing - RUE: Within functional limits Sensation Light Touch: Right Upper Extremity: Intact Left Upper Extremity Examination LUE ROM Assessment LUE Assessment: Within Functional Limits Manual Muscle Testing - LUE: Within functional limits Sensation Light Touch: Left Upper Extremity: Intact Right Lower Extremity Examination RLE ROM Assessment RLE Assessment: Within Functional Limits Hip flexion: 3+ Hip Extension: 3+ Ankle Dorsiflexion: 3+ Sensation Light Touch: Right Lower Extremity: Absent (in feet, sensation improving at mid-funk) Left Lower Extremity Examination LLE Assessment: Within Functional Limits Manual Muscle Testing: Within functional limits Sensation Light Touch: Left Lower Extremity: Absent (in feet, sensation improving at mid-funk) Bed Mobility Bed Mobility Exam: Scooting/Bridging Level of Dundy: Contact guard (scooting hips forward to edge of bed) Physical/Nonphysical Assist: Verbal Cues, Minimal cues Bed Mobility Exam: Supine to Sit Level of Dundy: Minimum assist (75% patient's effort) Physical/Nonphysical Assist: HOB elevated, Verbal Cues Assistive Device: Overhead trapeze Bed Mobility Exam: Sit to Supine Level of Dundy: Stand-by assist Physical/Nonphysical Assist: Verbal Cues, Minimal cues Assistive Device: Overhead trapeze Transfers Transfer Exam: Sit to stand Level of Dundy: Maximum assist (25% patient's effort) (x3 reps from edge of bed, good adherence to NWB RLE) Physical/Nonphysical Assist: Verbal Cues, Nonverbal cues (demo/gestures), Additional assist utilized for safety Assistive Device: Walker, rolling (bariatric) Transfer Exam: Stand to Sit Level of Dundy: Maximum assist (25% patient's effort) Physical/Nonphysical Assist: Verbal Cues, Nonverbal cues (demo/gestures), Additional assist utilized for safety Assistive Device: Walker, rolling (bariatric) Functional Mobility Ambulation Comments: Unable to side step or progress to forward hop step at bariatric RW level due to inability to maintain prolonged standing position while maintaining NWB in RLE. Balance Postural Appearance Posture: Within Functional Limits, Forward head Static Sitting Balance Static Sitting-Balance Support: No upper extremity support, Feet supported Static Sitting-Level of Assistance: Standby assist Dynamic Sitting Balance Dynamic Sitting-Balance Support: No upper extremity support, Feet supported Dynamic Sitting-Balance: Anterior/Posterior weight shifts, Lateral weight shifts Level of Assistance: Contact guard Static Standing Balance Static Standing-Balance Support: Right upper extremity support, Left upper extremity support (banner RW) Static Standing-Level of Assistance: Maximum assistance Self-Care Interventions Self Care/Home Management (ADLs) Time Entry: 30 Self-Care Interventions: OT provided extra time and min VC's for patient to complete ADL tasks. Pt positioned upright at edge of bed in prep for seated and standing level ADL tasks, dizziness reported initially with BP captured at 144/98 (110), pt maintaining sitting balance with SBA and reported dizziness subsided after two minutes. Pt then completed x3 reps of sit to stand to [facility] with max Ax2 persons each time, able to maintain NWB in RLE each time without cueing, pt supporting self withUE's on walker. Technique improving with each repetition and rest breaks encouraged between trials for improved activity tolerance. Pt encouraged to transition to sitting EOB for meals to increase ove rall ADL independence. Feeding Feeding Level of Assistance: Independent Feeding Where Assessed: Bed level (HOB elevated) Feeding Interventions: To perform self-feeding tasks, pt is on regular, consistent CHO diet Grooming Grooming Level of Assistance: Setup, SBA Grooming Where Assessed: Edge of bed Grooming Interventions: To perform seated level grooming tasks at edge of bed UE Dressing UE Dressing Level of Assistance: Setup, SBA UE Dressing Where Assessed: Edge of bed UE Dressing Interventions: Anticipated, donning pullover shirt Lower Extremity Dressing Sock Level of Assistance: Dependent LE Dressing Where Assessed: Bed level LE Dressing Interventions: Donning L non-skid sock in prep for OOB mobility tasks Toileting Toileting Level of Assistance: Dependent Where Assessed: Other (Comment) (in stance at [facility] level) Toileting Interventions: Pt with small incontinent BM, required dep A for hygiene to buttocks in stance at [facility] level with assistance from 2nd person needed for steadying throughout tasks Therapeutic Exercise (11 minutes) Pt engaged in bilateral UE strengthening exercises using green theraband while sitting edge of bed x 10 reps per exercise (SBA for balance). Pt performed bilateral horizontal shoulder abd/adduction, bilateral shoulder diagonal pulls, and forward punches with rest breaks between each set and min cues for breathing. Pt with appropriate technique throughout and demonstrates good carryover of education to improve BUE muscle power for RW level transfers and ADL tasks. Self-Care CARE Tool Performance SELF-CARE ITEMS CARE SCORE Eating 6 Oral Hygiene 4 Toileting Hygiene 1 Shower/Bathe Self 2 Upper Body Dressing 4 Lower Body Dressing 1 Putting On / Taking Off Footwear 1 CARE Tool Performance Score Jacobsen Score Assist Level Description 6 Independent Patient completes the activity by him/herself with no assistance from a helper. 5 Set-up or Clean-up Assistance [place] sets up or cleans up; patient completes activity. [place] assists only prior to or following the activity. 4 Supervision or touching assistance [place] provides verbal cues and/or touching/steadying and/or contact guard assistance as patient completes activity. Assistance may be provided throughout the activity or intermittently. 3 Partial/Moderate Assistance [place] does LESS THAN HALF the effort. [place] lifts, holds or supports trunk or limbs, but provides less than half the effort. 2 Substantial/Maximal Assistance [place] does MORE THAN HALF the effort. [place] lifts or holds trunkor limbs and provides more than half the effort. 1 Dependent [place] does ALL of the effort. Patient does none of the effort to complete the activity. Or, the assistance of 2 or more helpers is required for the patient to complete the activity. Activity Not Attempted Values 7 Patient refused. 9 Not applicable - Not attempted and the patient did not perform this activity prior to the currentillness, exacerbation, or injury. 10 Not attempted due to environmental limitations (e.g., lack of equipment, weather constraints) 88 Not attempted due to medical condition or safety concerns Standardized Assessments Freddie Index Feeding: Independent Bathing: Dependent Grooming: Independent face/hair/teeth/shaving (implements provided) Dressing: Needs help but can do about half unaided Bowels: Occasional accident Bladder: Incontinent, or catheterized and unable to manage alone Toilet Use: Dependent Transfers (Bed to Chair and Back): Major help (one or two people, physical), can help Mobility (on Level Surfaces): Immobile or < 50 yards Stairs: Unable Total Score: 30 Assessment Pt is limited by pain, fatigue, and impaired standing balance due to NWB in RLE which impacts overall ADL task performance. Pt remains most appropriate for Acute rehab upon discharge as he was previously independent at cane level and now requiring max A x2 persons for sit to stand to RW level. Pt unable to transfer to recliner due to inability to effectively weight shift in stance, however with good adherence to WB restriction throughout session during static standing tasks. Pt is currently unable to manage his self-care needs, therefore unsafe to return home at this time. Pt will continue tobenefit from skilled OT services at this time to address decreased safety and independence with ADLs, functional transfers, and functional mobility. OT Findings: Impaired ADL performance, Impaired IADL performance, Decreased endurance/ventilation/gas exchange, Impaired sensation/sensory processing, Impaired functional mobility, Decreased gross motor control/coordination, Impaired postural/trunk control, Impaired balance Evaluation/Treatment Tolerance: Patient limited by fatigue, Patient limited by pain Rehab Potential: Good, to achieve stated therapy goals Barriers to Discharge: Comorbidities OT Recommendations Discharge Destination: Acute rehab Discharge Equipment: Defer to facility Plan Planned OT Interventions ADL retraining, IADL retraining, Balance training, Bed mobility Training, Joint mobilization, Motorcoordination training, ROM, Strengthening, Transfer training, Functional mobility, Caregiver education OT Frequency 2 - 5 times per week OT Duration 2 weeks OT GOAL DETAILS DATE ASSESSED STATUS PROGRESS OT Goal 1: Pt will complete sit <> stand and BSC transfers with SBA using AE PRN and maintaining NWB RLE status OT Goal 1 Established Date: 04/28/25 OT Goal 1 Time Frame: 2 weeks 05/12/25 Goal not met, Goal ongoing Progress slower than expected OT Goal 2: Pt will complete lower body dressing independently OT Goal 2 Established Date: 04/28/25 OT Goal 2 Time Frame: 2 weeks 05/12/25 Goal discontinued Unable to make needed progress OT Goal 3: Pt will verbalize/demonstrate independence with UE HEP to facilitate increased strength and endurance for engaging in functional tasks OT Goal 3 Established Date: 04/28/25 OT Goal 3 Time Frame: 2 weeks 05/12/25 Goal not met, Goal ongoing Good progress towards goal OT Goal 4: Pt will perform lower body dressing tasks (including pants and non- skid socks) with mod A using AE PRN. OT Goal 4 Established Date: 05/12/25 OT Goal 4 Time Frame: 2 weeks Written by Beatriz Gaspar on 05/12/25 at 1:06 PM. * Progress Notes - Chayo Jennings RN - 05/12/2025 11:51 AM EDT Case Management Adult Progress Note Gonzalo Smalls 49 y.o. male CSN: [id number] Admission: 04/27/2025 9:29 PM Primary Problem: Diabetic foot ulcer Anticipated Discharge Date: TBD RN CM informed by bedside RN that pt's weight was obtained and current weight is 244.3kg (538.5 lbs)- due to pt being over 500 lbs [facility] is not able to accept the pt- pt and team aware. Referral to [facility] was expanded more on this day, at this time there is still no accepting facility. RN CM will continue to follow and assist with d/c plan and as needed. Chayo Jennings RN * Care Plan - Kaylin Robb RN - 05/12/2025 10:55 AM EDT Problem: Skin Injury Risk Increased Goal: Skin Health and Integrity Outcome: Ongoing, Progressing Problem: Adult Inpatient Plan of Care Goal: Plan of Care Review Outcome: Ongoing, Progressing Flowsheets (Taken 05/12/2025 1054) Progress: improving Plan of Care Reviewed With: patient Goal: Patient-Specific Goal (Individualized) Outcome: Ongoing, Progressing Flowsheets (Taken 05/12/2025 1000) Patient/Family-Specific Goals (Include Timeframe): blood sugar will normalize during this stay Individualized Care Needs: diabetic education, see MAR Anxieties, Fears or Concerns: blood sugar level Goal: Absence of Hospital-Acquired Illness or Injury Outcome: Ongoing, Progressing Goal: Optimal Comfort and Wellbeing Outcome: Ongoing, Progressing Problem: Fall Injury Risk Goal: Absence of Fall and Fall-Related Injury Outcome: Ongoing, Progressing Problem: Infection Goal: Absence of Infection Signs and Symptoms Outcome: Ongoing, Progressing Problem: Mobility Impairment Goal: Optimal Mobility Outcome: Ongoing, Progressing Problem: Mobility Impairment Goal: Optimal Mobility Outcome: Ongoing, Progressing Problem: Diabetes Goal: Optimal Coping Outcome: Ongoing, Progressing Goal: Optimal Functional Ability Outcome: Ongoing, Progressing Goal: Blood Glucose Level Within Target Range Outcome: Ongoing, Progressing Goal: Minimize Hypoglycemia Risk Outcome: Ongoing, Progressing Problem: Comorbidity Management Goal: Maintenance of Asthma Control Outcome: Ongoing, Progressing Goal: Maintenance of Behavioral Health Symptom Control Outcome: Ongoing, Progressing Goal: Maintenance of COPD Symptom Control Outcome: Ongoing, Progressing Goal: Blood Glucose Level Within Target Range Outcome: Ongoing, Progressing Goal: Maintenance of Heart Failure Symptom Control Outcome: Ongoing, Progressing Goal: Blood Pressure in Desired Range Outcome: Ongoing, Progressing Goal: Maintenance of Osteoarthritis Symptom Control Outcome: Ongoing, Progressing Goal: Bariatric Home Regimen Maintained Outcome: Ongoing, Progressing Goal: Maintenance of Seizure Control Outcome: Ongoing, Progressing Problem: Wound Goal: Optimal Coping Outcome: Ongoing, Progressing Goal: Optimal Pain Control and Function Outcome: Ongoing, Progressing Goal: Optimal Wound Healing Outcome: Ongoing, Progressing Intervention: Promote Wound Healing Flowsheets (Taken 05/12/2025 1054) Sleep/Rest Enhancement: awakenings minimized consistent schedule promoted noise level reduced natural light exposure provided regular sleep/rest pattern promoted relaxation techniques promoted room darkened Problem: Pain Acute Goal: Optimal Pain Control and Function Outcome: Ongoing, Progressing * Care Plan - Haritha Lam - 05/11/2025 11:02 PM EDT Problem: Skin Injury Risk Increased Goal: Skin Health and Integrity Outcome: Ongoing, Progressing Problem: Adult Inpatient Plan of Care Goal: Plan of Care Review Outcome: Ongoing, Progressing Flowsheets (Taken 05/11/2025 2301) Progress: improving Plan of Care Reviewed With: patient Goal: Patient-Specific Goal (Individualized) Outcome: Ongoing, Progressing Flowsheets (Taken 05/11/20251999) Patient/Family-Specific Goals (Include Timeframe): Pt will verbalize a decrease in pain level with prn medications during this shift Individualized Care Needs: pain control Anxieties, Fears or Concerns: none stated Goal: Absence of Hospital-Acquired Illness or Injury Outcome: Ongoing, Progressing Goal: Optimal Comfort and Wellbeing Outcome: Ongoing, Progressing Problem: Fall Injury Risk Goal: Absence of Fall and Fall-Related Injury Outcome: Ongoing, Progressing Problem: Infection Goal: Absence of Infection Signs and Symptoms Outcome: Ongoing, Progressing Problem: Mobility Impairment Goal: Optimal Mobility Outcome: Ongoing, Progressing Problem: Mobility Impairment Goal: Optimal Mobility Outcome: Ongoing, Progressing Problem: Diabetes Goal: Optimal Coping Outcome: Ongoing, Progressing Goal: Optimal Functional Ability Outcome: Ongoing, Progressing Goal: Blood Glucose Level Within Target Range Outcome: Ongoing, Progressing Goal: Minimize Hypoglycemia Risk Outcome: Ongoing, Progressing Problem: Comorbidity Management Goal: Maintenance of Asthma Control Outcome: Ongoing, Progressing Goal: Maintenance of Behavioral Health Symptom Control Outcome: Ongoing, Progressing Goal: Maintenance of COPD Symptom Control Outcome: Ongoing, Progressing Goal: Blood Glucose Level Within Target Range Outcome: Ongoing, Progressing Goal: Maintenance of Heart Failure Symptom Control Outcome: Ongoing, Progressing Goal: Blood Pressure in Desired Range Outcome: Ongoing, Progressing Goal: Maintenance of Osteoarthritis Symptom Control Outcome: Ongoing, Progressing Goal: Bariatric Home Regimen Maintained Outcome: Ongoing, Progressing Goal: Maintenance of Seizure Control Outcome: Ongoing, Progressing Problem: Wound Goal: Optimal Coping Outcome: Ongoing, Progressing Goal: Optimal Pain Control and Function Outcome: Ongoing, Progressing Goal: Optimal Wound Healing Outcome: Ongoing, Progressing Intervention: Promote Wound Healing Flowsheets (Taken 05/11/2025 2301) Sleep/Rest Enhancement: awakenings minimized consistent schedule promoted natural light exposure provided noise level reduced regular sleep/rest pattern promoted relaxation techniques promoted room darkened Problem: Pain Acute Goal: Optimal Pain Control and Function Outcome: Ongoing, Progressing * Progress Notes - Chayo Jennings RN - 05/11/2025 1:02 PM EDT Case Management Adult Progress Note Gonzalo Smalls 49 y.o. male CSN: [id number] Admission: 04/27/2025 9:29 PM Primary Problem: Diabetic foot ulcer Anticipated Discharge Date: TBD LOLA TOVAR f/ u with [facility]- admission at [facility]. [facility] is stating that they might be able to accept the pt if under 500lbs. Team and bedside RN updated. Bedside RN will attempt to obtain pt's current weight. RN CM will continue to follow. Chayo Jennings RN * Progress Notes - Lynda Choudhury APRN - 05/11/2025 11:01 AM EDT Endocrine - Diabetes Consult follow-up: Subjective: 24 hour update: -No acute events overnight -transitioned to U500 insulin 05/08 -Added correction insulin in addition to u-500 on 05/10 -patient remains hyperglycemic. Will add mealtime insulin bolus today and consider TID dosing of u-500 -AM BG 318 -PO intake: eating 100% of meals -patient laying in bed at time of visit. States he is feeling tired today due to being up overnight I have reviewed the patient's blood glucose levels, labs, vitals, and insulin doses administered inthe electronic medical record. Review of Systems Constitutional: Positive for activity change. Negative for chills and fever. Respiratory: Positive for shortness of breath. Cardiovascular: Negative for chest pain and palpitations. Gastrointestinal: Negative for diarrhea, nausea and vomiting. Endocrine: See HPI Skin: Positive for wound. Objective: Physical Exam Constitutional: General: He is not in acute distress. Appearance: He is obese. HENT: Head: Normocephalic and atraumatic. Right Ear: External ear normal. Left Ear: External ear normal. Nose: Nose normal. Mouth/Throat: Mouth: Mucous membranes are moist. Eyes: Conjunctiva/sclera: Conjunctivae normal. Pulmonary: Effort: Pulmonary effort is normal. No respiratory distress. Skin: General: Skin is warm and dry. Comments: Wound vac to right foot Neurological: Mental Status: He is alert. Psychiatric: Mood and Affect: Mood normal. BP (!) 153/67 (BP Location: Right arm, Patient Position: Lying) Pulse 64 Temp 36.6 ??C (97.8 ??F) (Oral) Resp 19 Ht 1.829 m (6') Wt (!) 246 kg (542 lb 15.9 oz) BMI 73.64 kg/m?? Medications: Current Scheduled Medications[1] Current Continuous Medications[2] Current PRN Medications[3] Diet Dietary Orders (From admission, onward) Start Ordered 05/02/25 1413 Adult diet Diet texture: Regular; Carbohydrate restriction: Consistent Carb 2 (80 gm max/meal); Sodium restriction: 2,000 mg Na Diet effective now References: IDDSI Diet Texture Guide Question Answer Comment Diet texture Regular Carbohydrate restriction: Consistent Carb 2 (80 gm max/meal) Sodium restriction: 2,000 mg Na 05/02/25 1413 Lab Review: Results from last 7 days Lab Units 05/11/25 0324 SODIUM mmol/L 131* POTASSIUM mmol/L 3.2* CHLORIDE mmol/L 85* CO2 mmol/L 39* BUN mg/dL 18 CREATININE mg/dL 0.86 EGFR mL/min/1.73m*2 107.5 GLUCOSE mg/dL 338* CALCIUM mg/dL 9.1 Results from last 7 days Lab Units 05/11/25 0324 WBC 10*3/uL 6.72 HEMOGLOBIN g/dL 9.5* HEMATOCRIT % 31.1* PLATELETS 10*3/uL 253 Lab Results Component Value Date GLUCOSE 338 (H) 05/11/2025 GLUCOSE 416 (H) 05/09/2025 GLUCOSE 290 (H) 05/03/2025 PGLU 336 (H) 05/11/2025 PGLU 398 (H) 05/10/2025 PGLU 418 (H) 05/10/2025 PGLU 348 (H) 05/10/2025 PGLU 332 (H) 05/10/2025 PGLU 377 (H) 05/10/2025 PGLU 296 (H) 05/09/2025 PGLU 398 (H) 05/09/2025 I reviewed bg tracing in [facility] glucose timeline 05/11/25 ASSESSMENT Hospital Course: Gonzalo Smalls is a 49 y.o. male with hx of CHF, HTN, HLD, a.fib, type 2 DM [on U500 insulin], COPD, QUINN on nightly oxygen, recurrent UTIs, BPH, morbid obesity, and anxiety/depression. Patient presented to ED for evaluation of worsening right diabetic foot ulcer. Mr. Smalls presented to an OSH and Podiatry they are recommended to coming to for evaluation due to his size and delayed abilityto get him in the OR. Of note, Mr. Smalls is receiving enteral panel for recurrent UTI and has a chronic Barber. Per chart review it appears that the kidney infection is for ESBL E coli. ED lab work was significant for leukocytosis, anemia, hyperglycemia, hypokalemia, hypomagnesemia, elevated CRP and sed rate. 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 Hospital medicine was consulted for admission. Endocrine Diabetes team was consulted for glycemic management on 04/28/25. Patient on U500 insulin dosing at home. Daily Glucose and Insulin Total Daily Dose -consulted 04/28 AM BG 199 -04/30: 173-226, TDD 114 units -05/01: 222-316, TDD 133 units -05/02: 250-358, TDD 180 units -05/03: 258-372, TDD 220 units - 05/04: 236-335, TDD 226 units -05/05: 290-371, TDD 286 units -05/06: 212-364, TDD 344 units -05/07 350-411 TDD 405 units -05/08: 273-388 TDD 446 units -05/09: 283-398, TDD 425 units -05/10: 332-418 TDD 482 -05/11: 318 -A1c: Lab Results Component Value Date HGBA1C 8.9 (H) 04/29/2025 -Diet: regular CC2 [80 g/meal] -Steroids: none Diagnoses #diabetic foot ulcer -OR 05/01 for right 4th and 5th toe amputation #UTI -barber in place #obesity -BMI 81.99 -complicates all aspects of care - contributes to insulin resistance #diabetes mellitus - type 2 -Home medications: CGM: Dexcom G7 Insulin regimen: U500 insulin: prescription for 225 units BID patient reports taking 200 units BID --> first dispensed 03/24/2025 - last dispensed 04/24/2025. insulin pen Reports being on U500 insulin for about 1 month and glycemic control has significantly improved Non insulin diabetes medications: Ozempic - recently started increased dose 0.5 mg this past week Metformin 100 mg BID Failed/Discontinued meds: Glargine: last dispensed 04/17/2025 Novolog mix last dispensed 02/22/2025 Jardiance Did not tolerate Mounjaro due to GI issues, constipation -see inpatient diabetes plan of care below PLAN: Primary team requesting recommendations and orders -After review of glucose trends and insulin delivery over the last 24 hours, the following titration made to assist with glycemic management: Increase u-500 dosing and add mealtime bolus. Starting on05/12 will consider TID dosing of u- 500 and will look into possibility of patient take home med (Ozempic) Current Hospital Regimen: Insulin regimen: Basal: 225 units U500 concentrated insulin BID Increase to 250 units BID Bolus: none Added lispro 15 units with meals starting at lunch Correction: very resistant dosing 3:50>150 lispro at mealtimes; 1;50>250 lispro bedtime, 3am PRN -Continue intensive glucose monitoring due to increased risk for hyper/hypoglycemia secondary to insulin therapy -Will continue to assess blood glucose trends and adjust basal/bolus insulin therapy dose according -fsbg ac/hs when eating, q6h when NPO, on TF/TPN -correction insulin to be given for hyperglycemia, do not hold correction if patient does not eat. -hypoglycemia protocol in place -Please document the percentage of meals consumed in intake and output flowsheet. -please notify us when diet orders change or steroids added as this impacts our tx NOTE: -Patient utilizes U500 insulin pen at home. With the U500 pen, a conversion is not needed. Typically patient's required a 70% reduction in home U500 dosing. 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 Also discussed contacting [facility] [facility] directly for the financial assistance program. -patient with plans to discharge to [facility] once able - need to check with [facility] to see if they are okay with utilizing U500 insulin if patient is able to bring in his own supply Insulin regimen - would like patient to utilize U500 home dosing at [facility] Continue Dexcom G7 CGM Likely continue Ozempic Likely continue metformin May substitute for therapeutic equivalent per insurance and retail PharmD approval -Supplies/scripts needed: Ensure patient has working glucose meter and supplies as back-up to CGM Lynda Choudhury APRN DM/Endo team will continue to follow. Please notify us as patient nears discharge for final recommendations Please contact Lynda Choudhury APRN [place] Adult Inpatient Diabetes team via secure chat or page us at [phone] during 7a-7p, Thursday-Thursday. For after hours please contact the on-call Endocrine Fellow. Thank you for the opportunity to participate in this patient's care. - Reviewed notes by primary team and consulting services to determine appropriate plan of care as in the note. - Discussed plan and management with patient, endocrine pharmacsit Time Spent: I personally spent a total of 33 minutes on this encounter. This time includes face to face with patient, counseling and discussion and/or coordination of care. [1] atorvastatin, 40 mg, Oral, Nightly bisoprolol, 10 mg, Oral, BID bumetanide, 4 mg, Oral, TID cariprazine, 3 mg, Oral, Daily dilTIAZem CD, 120 mg, Oral, Daily finasteride, 5 mg, Oral, Daily fluticasone, 2 spray, Each Nostril, Daily gabapentin, 600 mg, Oral, TID insulin lispro, 0-15 Units, Subcutaneous, TID with meals insulin lispro, 0-3 Units, Subcutaneous, Twice at night insulin regular, 225 Units, Subcutaneous, BID with meals Kyree, 1 packet, Oral, BID magnesium oxide, 800 mg, Oral, Daily miconazole, , Topical, BID pantoprazole, 40 mg, Oral, Daily before breakfast polyethylene glycol, 17 g, Oral, Daily rivaroxaban, 20 mg, Oral, Daily with dinner sodium chloride, 10 mL, Intravenous, q12h spironolactone, 100 mg, Oral, Daily tamsulosin, 0.4 mg, Oral, Daily venlafaxine XR, 150 mg, Oral, Daily [2] [3] PRN medications: acetaminophen, albuterol, glucose OR dextrose 10 % OR dextrose 10 % OR glucagon (human recombinant), guaiFENesin, ipratropium-albuterol, LORazepam, oxyCODONE, sodium chloride, Insert peripheral IV AND Saline lock IV AND sodium chloride AND sodium chloride * Care Plan - Tamar Lynn RN - 05/11/2025 9:00 AM EDT Problem: Skin Injury Risk Increased Goal: Skin Health and Integrity Outcome: Ongoing, Progressing Problem: Adult Inpatient Plan of Care Goal: Plan of Care Review Outcome: Ongoing, Progressing Flowsheets Taken 05/11/2025899 Progress: improving Plan of Care Reviewed With: patient Taken 05/10/2025 0748 Outcome Evaluation: Patient agreeable Goal: Patient-Specific Goal (Individualized) Outcome: Ongoing, Progressing Flowsheets (Taken 05/11/2025899) Patient/Family-Specific Goals (Include Timeframe): Patient will verbalize adequate pain control from PRN medications this shift. Individualized Care Needs: Pain control Anxieties, Fears or Concerns: denies Goal: Absence of Hospital-Acquired Illness or Injury Outcome: Ongoing, Progressing Goal: Optimal Comfort and Wellbeing Outcome: Ongoing, Progressing Problem: Fall Injury Risk Goal: Absence of Fall and Fall-Related Injury Outcome: Ongoing, Progressing Problem: Infection Goal: Absence of Infection Signs and Symptoms Outcome: Ongoing, Progressing Problem: Mobility Impairment Goal: Optimal Mobility Outcome: Ongoing, Progressing Problem: Mobility Impairment Goal: Optimal Mobility Outcome: Ongoing, Progressing Problem: Diabetes Goal: Optimal Coping Outcome: Ongoing, Progressing Goal: Optimal Functional Ability Outcome: Ongoing, Progressing Goal: Blood Glucose Level Within Target Range Outcome: Ongoing, Progressing Goal: Minimize Hypoglycemia Risk Outcome: Ongoing, Progressing Problem: Comorbidity Management Goal: Maintenance of Asthma Control Outcome: Ongoing, Progressing Goal: Maintenance of Behavioral Health Symptom Control Outcome: Ongoing, Progressing Goal: Maintenance of COPD Symptom Control Outcome: Ongoing, Progressing Goal: Blood Glucose Level Within Target Range Outcome: Ongoing, Progressing Goal: Maintenance of Heart Failure Symptom Control Outcome: Ongoing, Progressing Goal: Blood Pressure in Desired Range Outcome: Ongoing, Progressing Goal: Maintenance of Osteoarthritis Symptom Control Outcome: Ongoing, Progressing Goal: Bariatric Home Regimen Maintained Outcome: Ongoing, Progressing Goal: Maintenance of Seizure Control Outcome: Ongoing, Progressing Problem: Wound Goal: Optimal Coping Outcome: Ongoing, Progressing Goal: Optimal Pain Control and Function Outcome: Ongoing, Progressing Goal: Optimal Wound Healing Outcome: Ongoing, Progressing Intervention: Promote Wound Healing Flowsheets (Taken 05/11/2025 09) Sleep/Rest Enhancement: awakenings minimized reading promoted consistent schedule promoted regular sleep/rest pattern promoted family presence promoted relaxation techniques promoted natural light exposure provided noise level reduced Problem: Pain Acute Goal: Optimal Pain Control and Function Outcome: Ongoing, Progressing Note: Pain management plan of care reviewed with patient. * Progress Notes - Selin Lee MD - 05/11/2025 7:42 AM EDT Subjective No concerns. Doing well this morning. Denies any symptoms. Discussed that we need an accurate weight to update it, if >500lb would be a barrier to discharge. Agreeable to being weighed. Endorses constipation but feels like he will have a bowel movement, declined any additional bowel regimen. Review of Systemsper HPI Objective Vitals Temp: [36.3 ??C (97.4 ??F)-36.8 ??C (98.2 ??F)] 36.6 ??C (97.8 ??F) Heart Rate: [62-71] 64 Resp: [18-20] 19 BP: (135-153)/(67-76) 153/67 Physical Exam Vitals reviewed. Constitutional: Appearance: Normal appearance. He is obese. HENT: Head: Normocephalic and atraumatic. Nose: Nose normal. Eyes: Extraocular Movements: Extraocular movements intact. Cardiovascular: Rate and Rhythm: Normal rate. Pulmonary: Effort: Pulmonary effort is normal. Abdominal: General: Abdomen is flat. Musculoskeletal: General: Normal range of motion. Cervical back: Normal range of motion. Comments: R 5th metatarsal absent with wound vac on lateral and plantar foot Skin: General: Skin is warm. Neurological: General: No focal deficit present. Mental Status: He is alert and oriented to person, place, and time. Psychiatric: Mood and Affect: Mood normal. Behavior: Behavior normal. 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 49 yo gentleman with obesity and T2DM admitted for R diabetic foot ulcer with osteomyelitis now s/pR 5th metatarsal amputation on 05/01 with ID and vascular following whose surgical pathology is negative for OM off antibiotics now awaiting placement at acute rehab Diabetic foot ulcer with 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 - P/w worsening wound R foot found to have elevated inflammatory markers and CT showing possible OMunable to do MRI 2/ weight - Consults: vascular, ID - S/p amputation 05/01 - Wound vac placed 05/03 - Surgical pathology negative for OM as of 05/06 - Adult ID screening labs, needs hep B vaccine Plan: - Wound vac changes every 2 days , - NWB until vascular surgery follow-up in 1 month at least, scheduled for 05/30 DM, Poorly controlled Hyperglycemia - Home regimen 200 BID - BG ranges 200s - Transitioned to U500 on 05/07 per endo recs - Hospital regimen NPH 35 daily, U500 200 BID - Endocrine following, appreciate recs Urinary retention s/p barber - HX several months worsening progressive urinary retention since was hospitalized for abdominal infection which has been following with urology outpatient at [facility]. They have postulated this to be related to his diabetes and have had several voiding trials which have failed. Also has un dergone proctoscopy (?) which was normal. 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 and he were hoping to get a second opinion while here at - PSA WNL 05/06 - Barber care per protocol - Continue home flomax - Continue finasteride, started 05/06 - Urology consulted, No urologic intervention indicated at this time, recommend continuing indwelling barber with exchanges every 4-6 weeks for chronic urinary retention Prolonged QTC -dc trazodone for now, continue venlafaxine, vraylar, -frequent EKG , will not dc vraylar and effexor, patient has been stable with no arrhythmias noted -replace lytes PRN Chronic CHRF-home 2L HTN-BB AF-AC, dilt CHF-bumex TID, spironolactone HLD-statin COPD-inhalers A/D-vraylar, lorazepam, venlafaxine Insomnia-dc/d trazodone due to prolonged qtc GERD--PPI QUINN-?CPAP, needs sleep study outpatient Obesity-complicates care Diet-carb 1 DVT PPX AC FULL CODE Medically Ready for Discharge:Ready now, cardinal taylor denied admission, referral sent for swing beds, weight might be a barrier to discharge I have independently reviewed and interpreted the labs, vitals, and medications administered in theelectronic medical record. Current condition is not at goal, severity is high due to risk of progression or systemic complication. On high risk drug therapy requiring intensive monitoring for toxicity. Appropriate home medicationsfor the above chronic conditions were reviewed, resumed and adjusted as needed daily. Given the patient's above acute and chronic medical conditions, current medical interventions patient is deemed medically high risk. Reviewed notes by consulting services to determine appropriate plan of care as in the note. I personally discussed plan and management with patient. Selin Lee [employer] Division of [facility] Medicine [facility] * Care Plan - Haritha Lam Yehuda - 05/10/2025 10:38 PM EDT Problem: Skin Injury Risk Increased Goal: Skin Health and Integrity Outcome: Ongoing, Progressing Problem: Adult Inpatient Plan of Care Goal: Plan of Care Review Outcome: Ongoing, Progressing Flowsheets (Taken 05/10/20252237) Progress: improving Plan of Care Reviewed With: patient Goal: Patient-Specific Goal (Individualized) Outcome: Ongoing, Progressing Flowsheets (Taken 05/10/20252058) Patient/Family-Specific Goals (Include Timeframe): Pt will verbalize a decrease in pain level with prn medications during this shift Individualized Care Needs: pain control Anxieties, Fears or Concerns: none stated Goal: Absence of Hospital-Acquired Illness or Injury Outcome: Ongoing, Progressing Goal: Optimal Comfort and Wellbeing Outcome: Ongoing, Progressing Problem: Fall Injury Risk Goal: Absence of Fall and Fall-Related Injury Outcome: Ongoing, Progressing Problem: Infection Goal: Absence of Infection Signs and Symptoms Outcome: Ongoing, Progressing Problem: Mobility Impairment Goal: Optimal Mobility Outcome: Ongoing, Progressing Problem: Mobility Impairment Goal: Optimal Mobility Outcome: Ongoing, Progressing Problem: Diabetes Goal: Optimal Coping Outcome: Ongoing, Progressing Goal: Optimal Functional Ability Outcome: Ongoing, Progressing Goal: Blood Glucose Level Within Target Range Outcome: Ongoing, Progressing Goal: Minimize Hypoglycemia Risk Outcome: Ongoing, Progressing Problem: Comorbidity Management Goal: Maintenance of Asthma Control Outcome: Ongoing, Progressing Goal: Maintenance of Behavioral Health Symptom Control Outcome: Ongoing, Progressing Goal: Maintenance of COPD Symptom Control Outcome: Ongoing, Progressing Goal: Blood Glucose Level Within Target Range Outcome: Ongoing, Progressing Goal: Maintenance of Heart Failure Symptom Control Outcome: Ongoing, Progressing Goal: Blood Pressure in Desired Range Outcome: Ongoing, Progressing Goal: Maintenance of Osteoarthritis Symptom Control Outcome: Ongoing, Progressing Goal: Bariatric Home Regimen Maintained Outcome: Ongoing, Progressing Goal: Maintenance of Seizure Control Outcome: Ongoing, Progressing Problem: Wound Goal: Optimal Coping Outcome: Ongoing, Progressing Goal: Optimal Pain Control and Function Outcome: Ongoing, Progressing Goal: Optimal Wound Healing Outcome: Ongoing, Progressing Intervention: Promote Wound Healing Flowsheets (Taken 05/10/2025 5389) Sleep/Rest Enhancement: awakenings minimized consistent schedule promoted natural light exposure provided relaxation techniques promoted noise level reduced room darkened regular sleep/rest pattern promoted Problem: Pain Acute Goal: Optimal Pain Control and Function Outcome: Ongoing, Progressing * Progress Notes - Selin Lee MD - 05/10/2025 9:18 AM EDT Subjective No concerns. Doing well this morning. Denies any symptoms. Endorses CPAP machine at night at home but doesn't want to wear it. Review of Systemsper HPI Objective Vitals Temp: [36.4 ??C (97.5 ??F)-36.8 ??C (98.2 ??F)] 36.7 ??C (98.1 ??F) Heart Rate: [60-73] 60 Resp: [18] 18 BP: (123-132)/(69-81) 126/71 Physical Exam Vitals reviewed. Constitutional: Appearance: Normal appearance. He is obese. HENT: Head: Normocephalic and atraumatic. Nose: Nose normal. Eyes: Extraocular Movements: Extraocular movements intact. Cardiovascular: Rate and Rhythm: Normal rate. Pulmonary: Effort: Pulmonary effort is normal. Abdominal: General: Abdomen is flat. Musculoskeletal: General: Normal range of motion. Cervical back: Normal range of motion. Comments: R 5th metatarsal absent with wound vac on lateral and plantar foot Skin: General: Skin is warm. Neurological: General: No focal deficit present. Mental Status: He is alert and oriented to person, place, and time. Psychiatric: Mood and Affect: Mood normal. Behavior: Behavior normal. 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 49 yo gentleman with obesity and T2DM admitted for R diabetic foot ulcer with osteomyelitis now s/pR 5th metatarsal amputation on 05/01 with ID and vascular following whose surgical pathology is negative for OM off antibiotics now awaiting placement at acute rehab Diabetic foot ulcer with 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 - P/w worsening wound R foot found to have elevated inflammatory markers and CT showing possible OMunable to do MRI 08/14 weight - Consults: vascular, ID - S/p amputation 05/01 - Wound vac placed 05/03 - Surgical pathology negative for OM as of 05/06 - Adult ID screening labs, needs hep B vaccine Plan: - Wound vac changes every 2 days , - NWB until vascular surgery follow-up in 1 month at least, scheduled for 05/30 DM, Poorly controlled Hyperglycemia - Home regimen 200 BID - BG ranges 200s - Transitioned to U500 on 05/07 per endo recs - Hospital regimen NPH 35 daily, U500 200 BID - Endocrine following, appreciate recs Urinary retention s/p barber - HX several months worsening progressive urinary retention since was hospitalized for abdominal infection which has been following with urology outpatient at [facility]. They have postulated this to be related to his diabetes and have had several voiding trials which have failed. Also has un dergone proctoscopy (?) which was normal. 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 and he were hoping to get a second opinion while here at - PSA WNL 05/06 - Barber care per protocol - Continue home flomax - Continue finasteride, started 05/06 - Urology consulted, No urologic intervention indicated at this time, recommend continuing indwelling barber with exchanges every 4-6 weeks for chronic urinary retention Prolonged QTC -dc trazodone for now, continue venlafaxine, vraylar, -daily EKG until it improves Chronic CHRF-home 2L HTN-BB AF-AC, dilt HF-bumex, gracie HLD-statin COPD-inhalers A/D-vraylar, lorazepam, venlafaxine Insomnia-dc/d trazodone due to prolonged qtc GERD--PPI QUINN-?CPAP, needs sleep study outpatient Obesity-complicates care Diet-carb 1 DVT PPX AC FULL CODE Medically Ready for Discharge:Ready now, cardinal taylor denied admission, referral sent for swing beds I have independently reviewed and interpreted the labs, vitals, [facility]. Current condition is not at goal, severity is high due to risk of progression or systemic complication. On high risk drug therapy requiring intensive monitoring for toxicity. Appropriate home medicationsfor the above chronic conditions were reviewed, resumed and adjusted as needed daily. Given the patient's above acute and chronic medical conditions, current medical interventions patient is deemed medically high risk. Reviewed notes by consulting services to determine appropriate plan of care as in the note. I personally discussed plan and management with patient. Selin Lee [employer] Division of Hospital Medicine [facility] * Progress Notes - Chayo Jennings RN - 05/10/2025 8:59 AM EDT Case Management Adult Progress Note Gonzalo Smalls 49 y.o. male CSN: [id number] Admission: 04/27/2025 9:29 PM Primary Problem: Diabetic foot ulcer Anticipated Discharge Date: TBD LOLA CM f/u on [facility] referral and was told that [facility] physician declined pt's acceptance to [facility]. RN CMvisited with the pt this morning to discuss d/c plan. Pt is in agreement to be referred to [facility]- referral to [facility] initiated on this day. Team aware. LOLA TOVAR will continue to follow and assist with d/c plan and as needed. Chayo Jennings RN * Progress Notes - Aileen Leonardo APRN - 05/10/2025 8:39 AM EDT Endocrine - Diabetes Consult follow-up: Subjective: 24 hour update: -transitioned to U500 insulin 05/08 -AM BG 332 -discussed insulin coverage -mother at bedside I have reviewed the patient's blood glucose levels, labs, vitals, and insulin doses administered inthe electronic medical record. Review of Systems Constitutional: Positive for activity change. Negative for appetite change. HENT: Negative for trouble swallowing. Respiratory: Negative for shortness of breath. Sleep apnea Cardiovascular: Negative for chest pain. Hx of heart failure Gastrointestinal: Positive for constipation. Negative for abdominal pain and nausea. Endocrine: See 24 hour update Wearing CGM Genitourinary: Barber in place Skin: Positive for wound (bilateral lower extremities). Psychiatric/Behavioral: Positive for sleep disturbance. Negative for agitation and confusion. Objective: Physical Exam Constitutional: General: He is not in acute distress. Appearance: He is obese. He is ill-appearing. HENT: Head: Normocephalic and atraumatic. Mouth/Throat: Mouth: Mucous membranes are moist. Eyes: Pupils: Pupils are equal, round, and reactive to light. Cardiovascular: Rate and Rhythm: Normal rate. Pulmonary: Effort: Pulmonary effort is normal. No respiratory distress. Comments: Nasal cannula Genitourinary: Comments: Barber Musculoskeletal: General: No swelling. Skin: General: Skin is warm and dry. Findings: Lesion (bilateral lower extremities; new right toe amputation) present. Neurological: Mental Status: He is alert and oriented to person, place, and time. Mental status is at baseline. Psychiatric: Mood and Affect: Mood normal. Thought Content: Thought content normal. Judgment: Judgment normal. BP 126/71 (BP Location: Right arm, Patient Position: Lying) Pulse 60 Temp 36.7 ??C (98.1 ??F) (Oral) Resp 18 Ht 1.829 m (6') Wt (!) 251 kg (553 lb 5.7 oz) BMI 75.05 kg/m?? Medications: Current Scheduled Medications[1] Current Continuous Medications[2] Current PRN Medications[3] Diet Dietary Orders (From admission, onward) Start Ordered 05/02/25 1413 Adult diet Diet texture: Regular; Carbohydrate restriction: Consistent Carb 2 (80 gm max/meal); Sodium restriction: 2,000 mg Na Diet effective now References: IDDSI Diet Texture Guide Question Answer Comment Diet texture Regular Carbohydrate restriction: Consistent Carb 2 (80 gm max/meal) Sodium restriction: 2,000 mg Na 05/02/25 1413 Lab Review: Results from last 7 days Lab Units 05/09/25 1754 SODIUM mmol/L 130* POTASSIUM mmol/L 3.1* CHLORIDE mmol/L 84* CO2 mmol/L 35* BUN mg/dL 17 CREATININE mg/dL 0.81 EGFR mL/min/1.73m*2 109.4 GLUCOSE mg/dL 416* CALCIUM mg/dL 9.1 Lab Results Component Value Date GLUCOSE 416 (H) 05/09/2025 GLUCOSE 290 (H) 05/03/2025 GLUCOSE 399 (H) 05/03/2025 PGLU 332 (H) 05/10/2025 PGLU 377 (H) 05/10/2025 PGLU 296 (H) 05/09/2025 PGLU 398 (H) 05/09/2025 PGLU 283 (H) 05/09/2025 PGLU 306 (H) 05/09/2025 PGLU 273 (H) 05/08/2025 PGLU 310 (H) 05/08/2025 I reviewed bg tracing in epic glucose timeline 05/10/25 ASSESSMENT Hospital Course: Gonzalo Smalls is a 49 y.o. male with hx of CHF, HTN, HLD, a.fib, type 2 DM [on U500 insulin], COPD, QUINN on nightly oxygen, recurrent UTIs, BPH, morbid obesity, and anxiety/depression. Patient presented to ED for evaluation of worsening right diabetic foot ulcer. Mr. Smalls presented to an OSH and Podiatry they are recommended to coming to for evaluation due to his size and delayed abilityto get him in the OR. Of note, Mr. Smalls is receiving enteral panel for recurrent UTI and has a chronic Barber. Per chart review it appears that the kidney infection is for ESBL E coli. ED lab work was significant for leukocytosis, anemia, hyperglycemia, hypokalemia, hypomagnesemia, elevated CRP and sed rate. 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 Hospital medicine was consulted for admission. Endocrine Diabetes team was consulted for glycemic management on 04/28/25. Patient on U500 insulin dosing at home. Daily Glucose and Insulin Total Daily Dose -consulted 04/28 AM BG 199 -04/30: 173-226, TDD 114 units -05/01: 222-316, TDD 133 units -05/02: 250-358, TDD 180 units -05/03: 258-372, TDD 220 units - 05/04: 236-335, TDD 226 units -05/05: 290-371, TDD 286 units -05/06: 212-364, TDD 344 units -05/07 350-411 TDD 405 units -05/08: 273-388 TDD 446 units -05/09: 283-398, TDD 425 units -A1c: Lab Results Component Value Date HGBA1C 8.9 (H) 04/29/2025 -Diet: regular CC2 [80 g/meal] -Steroids: none Diagnoses #diabetic foot ulcer -OR 05/01 for right 4th and 5th toe amputation #UTI -barber in place #obesity -BMI 81.99 -complicates all aspects of care - contributes to insulin resistance #diabetes mellitus - type 2 -Home medications: CGM: [employer] G7 Insulin regimen: U500 insulin: prescription for 225 units BID patient reports taking 200 units BID --> first dispensed 03/24/2025 - last dispensed 04/24/2025. insulin pen Reports being on U500 insulin for about 1 month and glycemic control has significantly improved Non insulin diabetes medications: Ozempic - recently started increased dose 0.5 mg this past week Metformin 100 mg BID Failed/Discontinued meds: Glargine: last dispensed 04/17/2025 Novolog mix last dispensed 02/22/2025 Jardiance Did not tolerate Mounjaro due to GI issues, constipation -see inpatient diabetes plan of care below PLAN: Primary team requesting recommendations and orders -After review of glucose trends and insulin delivery over the last 24 hours, titration of intensiveinsulin therapy was made to overall improve glycemic control and improve patient outcomes Current Hospital Regimen: Insulin regimen: Basal: 225 units U500 concentrated insulin BID Bolus: none Correction: added very resistant dosing 3:50>150 lispro at mealtimes; 1;50>250 lispro bedtime, 3am PRN -Continue intensive glucose monitoring due to increased risk for hyper/hypoglycemia secondary to insulin therapy -Will continue to assess blood glucose trends and adjust basal/bolus insulin therapy dose according -fsbg ac/hs when eating, q6h when NPO, on TF/TPN -correction insulin to be given for hyperglycemia, do not hold correction if patient does not eat. -hypoglycemia protocol in place -Please document the percentage of meals consumed in intake and output flowsheet. -please notify us when diet orders change or steroids added as this impacts our tx NOTE: -Patient utilizes U500 insulin pen at home. With the U500 pen, a conversion is not needed. Typically patient's required a 70% reduction in home U500 dosing. 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 Also discussed contacting [employer] directly for the financial assistance program. -patient with plans to discharge to [facility] once able - need to check with [facility] to see if they are okay with utilizing U500 insulin if patient is able to bring in his own supply Insulin regimen - would like patient to utilize U500 home dosing at [facility] Continue Dexcom G7 CGM Likely continue Ozempic Likely continue metformin May substitute for therapeutic equivalent per insurance and retail PharmD approval -Supplies/scripts needed: Ensure patient has working glucose meter and supplies as back-up to CGM DM/Endo team will continue to follow. Please notify us as patient nears discharge for final recommendations Please contact Aileen Leonardo APRN [place] Adult Inpatient Diabetes team via secure chat orpage us at [phone] during 7a-7p, Thursday-Thursday. For after hours please contact the on-call Endocrine Fellow. Thank you for the opportunity to participate in this patient's care. - Reviewed notes by primary team and consulting services to determine appropriate plan of care as in the note. - Discussed plan and management with patient and endocrine pharmacist Time Spent: I personally spent a total of 30 minutes on this encounter. This time includes face to face with patient, counseling and discussion and/or coordination of care. [1] atorvastatin, 40 mg, Oral, Nightly bisoprolol, 10 mg, Oral, BID bumetanide, 4 mg, Oral, TID cariprazine, 3 mg, Oral, Daily dilTIAZem CD, 120 mg, Oral, Daily finasteride, 5 mg, Oral, Daily fluticasone, 2 spray, Each Nostril, Daily gabapentin, 600 mg, Oral, TID insulin regular, 225 Units, Subcutaneous, BID with meals Kyree, 1 packet, Oral, BID magnesium oxide, 800 mg, Oral, Daily miconazole, , Topical, BID pantoprazole, 40 mg, Oral, Daily before breakfast polyethylene glycol, 17 g, Oral, Daily potassium chloride, 20 mEq, Oral, Once rivaroxaban, 20 mg, Oral, Daily with dinner sodium chloride, 10 mL, Intravenous, q12h spironolactone, 100 mg, Oral, Daily tamsulosin, 0.4 mg, Oral, Daily traZODone, 100 mg, Oral, Nightly venlafaxine XR, 150 mg, Oral, Daily [2] [3] PRN medications: acetaminophen, albuterol, glucose OR dextrose 10 % OR dextrose 10 % OR glucagon (human recombinant), guaiFENesin, ipratropium-albuterol, LORazepam, oxyCODONE, sodium chloride, Insert peripheral IV AND Saline lock IV AND sodium chloride AND sodium chloride * Care Plan - Tamar Lynn RN - 05/10/2025 7:52 AM EDT Problem: Skin Injury Risk Increased Goal: Skin Health and Integrity Outcome: Ongoing, Progressing Problem: Adult Inpatient Plan of Care Goal: Plan of Care Review Outcome: Ongoing, Progressing Flowsheets (Taken 05/10/2025 0748) Progress: improving Outcome Evaluation: Patient agreeable Plan of Care Reviewed With: patient Goal: Patient-Specific Goal (Individualized) Outcome: Ongoing, Progressing Flowsheets (Taken 05/10/2025 0748) Patient/Family-Specific Goals (Include Timeframe): Patient will remain free from any falls or injury and report adequate pain control. Individualized Care Needs: Safety Anxieties, Fears or Concerns: Denies Goal: Absence of Hospital-Acquired Illness or Injury Outcome: Ongoing, Progressing Goal: Optimal Comfort and Wellbeing Outcome: Ongoing, Progressing Problem: Fall Injury Risk Goal: Absence of Fall and Fall-Related Injury Outcome: Ongoing, Progressing Problem: Infection Goal: Absence of Infection Signs and Symptoms Outcome: Ongoing, Progressing Problem: Mobility Impairment Goal: Optimal Mobility Outcome: Ongoing, Progressing Problem: Mobility Impairment Goal: Optimal Mobility Outcome: Ongoing, Progressing Problem: Diabetes Goal: Optimal Coping Outcome: Ongoing, Progressing Goal: Optimal Functional Ability Outcome: Ongoing, Progressing Goal: Blood Glucose Level Within Target Range Outcome: Ongoing, Progressing Goal: Minimize Hypoglycemia Risk Outcome: Ongoing, Progressing Problem: Comorbidity Management Goal: Maintenance of Asthma Control Outcome: Ongoing, Progressing Goal: Maintenance of Behavioral Health Symptom Control Outcome: Ongoing, Progressing Note: Therapeutic communication provided. Goal: Maintenance of COPD Symptom Control Outcome: Ongoing, Progressing Goal: Blood Glucose Level Within Target Range Outcome: Ongoing, Progressing Note: ENDocrine consulted Goal: Maintenance of Heart Failure Symptom Control Outcome: Ongoing, Progressing Goal: Blood Pressure in Desired Range Outcome: Ongoing, Progressing Goal: Maintenance of Osteoarthritis Symptom Control Outcome: Ongoing, Progressing Goal: Bariatric Home Regimen Maintained Outcome: Ongoing, Progressing Goal: Maintenance of Seizure Control Outcome: Ongoing, Progressing Problem: Wound Goal: Optimal Coping Outcome: Ongoing, Progressing Goal: Optimal Pain Control and Function Outcome: Ongoing, Progressing Goal: Optimal Wound Healing Outcome: Ongoing, Progressing Intervention: Promote Wound Healing Flowsheets (Taken 05/10/2025 0748) Sleep/Rest Enhancement: consistent schedule promoted natural light exposure provided regular sleep/rest pattern promoted reading promoted relaxation techniques promoted noise level reduced Problem: Pain Acute Goal: Optimal Pain Control and Function Outcome: Ongoing, Progressing * Care Plan - Checo Monson - 05/09/2025 10:54 PM EDT Problem: Skin Injury Risk Increased Goal: Skin Health and Integrity Outcome: Ongoing, Progressing Intervention: Optimize Skin Protection Flowsheets Taken 05/08/20252045 by Checo Monson Activity Management: activity adjusted per tolerance Taken 05/08/2025 0600 by Judd Zavaleta, RN Head of Bed (HOB) Positioning: HOB elevated Taken 05/06/20251999 by Judd Zavaleta, RN Pressure Reduction Devices: positioning supports utilized pressure-redistributing mattress utilized Taken 05/05/2025 0118 by Cassie Gilliam Pressure Reduction Techniques: frequent weight shift encouraged weight shift assistance provided Skin Protection: incontinence pads utilized Problem: Adult Inpatient Plan of Care Goal: Plan of Care Review Outcome: Ongoing, Progressing Flowsheets Taken 05/08/2025 1624 by Jennifer Saldana Progress: improving Taken 05/07/20251999 by Judd Zavaleta RN Plan of Care Reviewed With: patient Taken 05/06/2025 1416 by Jennifer Saldana Outcome Evaluation: pt agreeable to plan of care Goal: Patient-Specific Goal (Individualized) Outcome: Ongoing, Progressing Goal: Absence of Hospital-Acquired Illness or Injury Outcome: Ongoing, Progressing Goal: Optimal Comfort and Wellbeing Outcome: Ongoing, Progressing Problem: Fall Injury Risk Goal: Absence of Fall and Fall-Related Injury Outcome: Ongoing, Progressing Problem: Infection Goal: Absence of Infection Signs and Symptoms Outcome: Ongoing, Progressing Problem: Mobility Impairment Goal: Optimal Mobility Outcome: Ongoing, Progressing Problem: Mobility Impairment Goal: Optimal Mobility Outcome: Ongoing, Progressing Problem: Diabetes Goal: Optimal Coping Outcome: Ongoing, Progressing Goal: Optimal Functional Ability Outcome: Ongoing, Progressing Goal: Blood Glucose Level Within Target Range Outcome: Ongoing, Progressing Goal: Minimize Hypoglycemia Risk Outcome: Ongoing, Progressing Problem: Comorbidity Management Goal: Maintenance of Asthma Control Outcome: Ongoing, Progressing Goal: Maintenance of Behavioral Health Symptom Control Outcome: Ongoing, Progressing Goal: Maintenance of COPD Symptom Control Outcome: Ongoing, Progressing Goal: Blood Glucose Level Within Target Range Outcome: Ongoing, Progressing Goal: Maintenance of Heart Failure Symptom Control Outcome: Ongoing, Progressing Goal: Blood Pressure in Desired Range Outcome: Ongoing, Progressing Goal: Maintenance of Osteoarthritis Symptom Control Outcome: Ongoing, Progressing Goal: Bariatric Home Regimen Maintained Outcome: Ongoing, Progressing Goal: Maintenance of Seizure Control Outcome: Ongoing, Progressing Problem: Wound Goal: Optimal Coping Outcome: Ongoing, Progressing Goal: Optimal Pain Control and Function Outcome: Ongoing, Progressing Goal: Optimal Wound Healing Outcome: Ongoing, Progressing Problem: Pain Acute Goal: Optimal Pain Control and Function Outcome: Ongoing, Progressing * Progress Notes - Claudio Kim - 05/09/2025 11:49 AM EDT OCCUPATIONAL THERAPY TREATMENT PATIENT DATA Patient Name Gonzalo Smalls Session Date 05/09/2025 Total Treatment Time 40 OT Discharge Recommendations Acute rehab Equipment Recommendations Defer to facility PRECAUTIONS Mobility Guidelines Mobility Protocol: General - Mobility Guidelines Extremity Precautions: No Extremity Precautions Other mobility precautions: No other precautions required Medical Precautions Medical Precautions: Fall precautions PRESENTATION Oxygen Room Air Telemetry No Lines and Tubes Urethral Catheter (Active) PICC Single Lumen 04/25/25 Left (Active) Negative Pressure Wound Therapy Toe (Comment which one) Anterior;Right (Active) Pre-Session Supine, Head of bed elevated, Lines intact RN agreeable to OT session. Post-Session Supine, Head of bed elevated, Lines intact, RN notified, Call light in reach All needsmet upon close of session. Bracing (if applicable) SUBJECTIVE PARTICIPANTS IN CARE Subjective Pt reports he has been with difficulty performing sit <> stand transfers Visitors Present none Fpga Engineer (if applicable) N/a OBJECTIVE PAIN Pt endorses soreness to buttocks area, reports buttocks/right thigh discomfort sitting EOB, not rated numerically Pain management addressed by the following: * pt was positioned for comfort DELIRIUM SCREENING RASS: Alert and calm Confusion Assessment Method-ICU (CAM-ICU/PCAM-ICU) Feature 3: Altered Level of Consciousness: Negative COGNITION SCREENING Overall Cognitive Status Within Functional Limits Arousal/Alertness Appropriate responses to stimuli Mood/Behavior Orientation Oriented X4 Command Following Single Step Commands: Consistently Multi-Step Commands: Consistently Method of Communication Verbal Additional Observations INTERVENTIONS Bed Mobility Bed Mobility Exam: Scooting/Bridging Level of Dundy: Stand-by assist Physical/Nonphysical Assist: Verbal Cues, Minimal cues Assistive Device: Overhead trapeze Bed Mobility Exam: Supine to Sit Level of Dundy: Stand-by assist Physical/Nonphysical Assist: Verbal Cues, Minimal cues, HOB elevated Assistive Device: Overhead trapeze Bed Mobility Exam: Sit to Supine Level of Dundy: Stand-by assist Physical/Nonphysical Assist: Verbal Cues, Minimal cues Assistive Device: Overhead trapeze Transfers Transfer Exam: Sit to stand Level of Dundy: Maximum assist (25% patient's effort) Physical/Nonphysical Assist: Set-up required, Additional assist utilized for safety, Maximal cues, Verbal Cues, Nonverbal cues (demo/gestures) Assistive Device: Hand held assist Transfer Exam: Stand to Sit Level of Dundy: Maximum assist (25% patient's effort) Physical/Nonphysical Assist: Set-up required, Maximal cues, Verbal Cues, Nonverbal cues (demo/gestures), Additional assist utilized for safety Assistive Device: Hand held assist Self-Care Self_Care Interventions: Pt deferred ADLs this date Therapeutic Activity (40 minutes) Increased time to prep lines (barber, wound vac) for mobility. SBA with increased time to transfer supine to sit. Increased time and attempts to adjust position at EOB. Pt reports leg discomfort from bed frame digging into R thigh at EOB, improved with placing thinly folded blanket to provide barrier. Attempted sit to stand training this date as pt has been with difficulty maintaining NWB RLE in prior sessions. 4 stand attempts performed with increased time for rest break between attempts. Firstattempt able to clear buttocks from mattress but reach ~10% upright. Second attempt reached ~25% upright, 3rd attempt ~50% upright, before 4th and final attempt reaching fully upright. Pt verbalized fear between attempts that his LLE will buckle to support body weight. Encouragement and education provided between attempts to outline therapist assist provided. Max A x2 for each standing attempt during progression with standing. VCs and tactile cues for walker management as pt pulled walker wheels off the floor initially during 2 of 4 stand attempts but improved on final attempt. Pt returned supine with SBA and increased time, able to scoot hips toward center of bed with SBA and increased time as well. Encouraged pt to continue UE HEP to facilitate increased strength while compensating for strength with UEs during transfers while NWB RLE. Pt verbalized understanding. ASSESSMENT Pt remains deconditioned. Improvement demonstrated this date for maintaining NWB RLE during transfer training, as well as improving efficiency with transfers. Continues to require Max A x2 to attemptstanding, however, improved from difficulty clearing buttocks from mattress this date, to reaching fully upright by 4th stand attempt. Pt continues to demonstrate good effort. Unable to care for selfin current condition, remains appropriate for IRF upon discharge when medically ready. Continue OT POC. OT RECOMMENDATIONS Discharge Destination Acute rehab Discharge Equipment Defer to facility PLAN Progress OT POC as tolerated OT GOALS OT GOAL DETAILS Goal Established Date Time Frame Goal Status OT Goal 1: Pt will complete sit <> stand and BSC transfers with SBA using AE PRN and maintaining NWB RLE status 04/28/25 2 weeks OT Goal 2: Pt will complete lower body dressing independently 04/28/25 2 weeks OT Goal 3: Pt will verbalize/demonstrate independence with UE HEP to facilitate increased strength and endurance for engaging in functional tasks 04/28/25 2 weeks Written by Claudio Kim on 05/09/25 at 3:16 PM. * Progress Notes - Elmo Lima - 05/09/2025 11:48 AM EDT Physical Therapy Treatment Patient Name: Gonzalo Smalls Today's Date: 05/09/2025 PT Discharge Recommendations: Acute rehab Equipment Recommended: Defer to facility Subjective Pt agreeable to therapy session Participants in Care Family/Caregiver Present: No Fpga Engineer: Not Applicable Presentation Oxygen Therapy: Supplemental oxygen O2 Flow Rate (L/min): 2 L/min Lines and Tubes: Urethral Catheter (Active) PICC Single Lumen 04/25/25 Left (Active) Negative Pressure Wound Therapy Toe (Comment which one) Anterior;Right (Active) Pre-Session: Supine, Head of bed elevated, Lines intact Pre-Session Comments: RN cleared pt for therapy. Post-Session: Supine, Head of bed elevated, Lines intact, RN notified, Call light in reach Post-Session Comments: Pt positioned for comfort, all needs in reach. Precautions Right Lower Extremity Weight Bearing Status: Non-Weight Bearing Medical Precautions: Fall precautions Objective Pain No pain reported in session Delirium Screening RASS: Alert and calm Confusion Assessment Method-ICU (CAM-ICU/PCAM-ICU) Feature 3: Altered Level of Consciousness: Negative Bed Mobility Bed Mobility Interventions: Verbal cues provided for hand/body positioning and sequencing to/from EOB. Increased time required for sequencing Bed Mobility Exam: Scooting/Bridging Level of Dundy: Stand-by assist Physical/Nonphysical Assist: Verbal Cues, Minimal cues Assistive Device: Overhead trapeze Bed Mobility Exam: Supine to Sit Level of Dundy: Stand-by assist Physical/Nonphysical Assist: Verbal Cues, Minimal cues, HOB elevated Assistive Device: Overhead trapeze Bed Mobility Exam: Sit to Supine Level of Dundy: Stand-by assist Physical/Nonphysical Assist: Verbal Cues, Minimal cues Assistive Device: Overhead trapeze Transfers Transfer Interventions: Transfers performed x 4 each from EOB. Pt able to increase cleareance from EOB with each respective stand attempt from aprox. <10, 25, 50, 100% of upright while successful maintaining NWB on LLE. Further progression limited by fatigue and strength deficits. Increased timerequired between attempts for recovery 2/2 to fatigue. Verbal cues provided for hand/foot placement, sequencing, weight shifting, appropriate use of SHOEBLACK, and maintaining NWB on LLE. Tactile cues provided to assist in sequencing and weight shifting. Transfer Exam: Sit to stand Level of Dundy: Maximum assist (25% patient's effort) Physical/Nonphysical Assist: Set-up required, Additional assist utilized for safety, Maximal cues, Verbal Cues, Nonverbal cues (demo/gestures) Assistive Device: Hand held assist Transfer Exam: Stand to Sit Level of Dundy: Maximum assist (25% patient's effort) Physical/Nonphysical Assist: Set-up required, Maximal cues, Verbal Cues, Nonverbal cues (demo/gestures), Additional assist utilized for safety Assistive Device: Hand held assist Ambulation Ambulation Comments: Unable to progress to forward ambulation this date secondary to inability to tolerate prolonged standng position 2/2 to functional LE weakness Balance Postural Appearance Posture: Within Functional Limits Static Sitting Balance Static Sitting-Balance Support: Feet supported (R foot only) Static Sitting-Level of Assistance: Standby assist Stating Sitting - Interventions: Sitting EOB Dynamic Sitting Balance Dynamic Sitting-Balance Support: Feet supported (R foot only) Dynamic Sitting-Balance: Anterior/Posterior weight shifts, Lateral weight shifts Level of Assistance: Standby assisst Dynamic Sitting - Interventions: Sitting EOB Static Standing Balance Static Standing-Balance Support: Right upper extremity support, Left upper extremity support Static Standing-Level of Assistance: Maximum assistance Static Standing - Interventions: Standing w SHOEBLACK Therapeutic Activity (40 minutes) See bed mobility, balance, and transfers sections for more detail. Standardized Assessments [facility] 6-Clicks Mobility Assessment Difficulty patient has turning over in bed (including adjusting bedclothes, sheets, and blankets)?:None Difficulty patient has sitting down on and standing up from a chair with arms (wheelchair, bedside commode, etc.)?: A lot Difficulty patient has moving from lying on back to sitting on the side of the bed?: None How much help does the patient need moving to and from a bed to a chair (including a wheelchair)?: Unable How much help does the patient need to walk in hospital room?: Unable How much help does the patient need climbing 3-5 steps with a railing?: Unable [facility] 6-Clicks Mobility Assessment Total : 13 Assessment Pt demonstrated improvements in functional mobility this date compared to previous session, requiring decreased assistance with bed mobility and demonstrating ability to complete full upright STS transfer. At this time, pt still lacks sufficient strength and balance for progression of OOB mobility w hile maintaining weight bearing precautions leading to overall diminished functional mobility and increased fall risk. Patient may benefit from IRF for the following reasons: Pt remains as a high fall risk when ambulating and thus is unsafe for discharge to home Pt ambulates at a slow pace and cannot perform ADL and iADLs functionally without prolonged rests Pt has stairs that pt cannot negotiate safely Pt would benefit from further instruction improving functional transfers and ambulation PT anticipates pt would benefit from a short IRF stay where patient could become more independent performing transfers and ambulating PT anticipates pt would benefit more greatly from IRF than other rehab services due to pt's medicalacuity, level of immobility, and need for improved safety prior to returning home. PT Recommendations Discharge Destination: Acute rehab Discharge Equipment: Defer to facility Plan Continue PT POC with progression as appropriate/tolerated. PT Goals PT GOAL DETAILS Goal Established Date Time Frame Goal Status PT Goal 1: Pt will be IND with HEP and discharge recommendations. 04/28/25 2 weeks PT Goal 2: Pt will perform sup<>sit with CGA. 04/28/25 2 weeks PT Goal 3: Pt will perform STS with LRAD and CGA. 04/28/25 2 weeks PT Goal 4: Pt will ambulate 50' with LRAD and CGA. 04/28/25 2 weeks PT Goal 5: Pt will navigate up/down 2 steps with CGA. 04/28/25 2 weeks Written by Elmo Lima on 05/09/25 at 2:39 PM. Cosigned by Ron Martinez at 05/09/2025 3:00 PM EDT Associated attestation - Ron Martinez - 05/09/2025 3:00 PM EDT As the supervising therapist, I was present during the entire PT treatment and have reviewed and agree with this document written by the student therapist for this patient on this date/time. Ron Martinez, PT, DPT * Consults - Kylee Ann, RD - 05/09/2025 8:22 AM EDT Adult Nutrition Evaluation Note Gonzalo Smalls 49 y.o. male CSN: [id number] Room/Bed 117/117A Nutrition evaluation type: follow-up Reason for evaluation: Hospital course: 49 y/o M presented for evaluation of a worsening right DM foot ulcer. OM of the 5th MTP, s/p right 5th toe ray amputation on 05/01. S/p wound vac placement on 05/03. Pending rehab placement. Past medical/ surgical history: Past Medical History[1] Surgical History[2] Social history: Additional comments: 05/09: Pt seen at bedside. He endorses a continued good appetite. No issues at this time with N/V. Last BM a couple of days ago. No needs or complaints voiced during RD visit. Vitals and Basic Assessment: BP: (!) 152/74 Temp: 36.4 ??C (97.5 ??F) Oxygen Therapy: Supplemental oxygen O2 Delivery Method: Nasal cannula [place] Coma Scale Score: 15 Miguel Ángel Scale Score: 14 Most Recent BM Date: 05/07/25 GI Symptoms: Constipation Edema: Generalized, Right lower extremity, Left lower extremity Skin: amputation site right foot ; wound to left heel (DM ulcer), groin, coccyx Allergies: no known food allergies Medications: Current Scheduled Medications[3] Current Continuous Medications[4] Current PRN Medications[5] Meds were reviewed: Yes Labs: Lab Results Component Value Date WBC 6.86 05/03/2025 HGB 8.9 (L) 05/03/2025 HCT 29.2 (L) 05/03/2025 MCV 76 (L) 05/03/2025 PLT 202 05/03/2025 Lab Results Component Value Date GLUCOSE 290 (H) 05/03/2025 CALCIUM 9.4 05/03/2025 NA 133 (L) 05/03/2025 K 3.6 05/03/2025 CO2 37 (H) 05/03/2025 CL 87 (L) 05/03/2025 BUN 14 05/03/2025 CREATININE 0.71 05/03/2025 PHOS 3.6 05/03/2025 MG 1.7 (L) 05/03/2025 HGBA1C 8.9 (H) 04/29/2025 Anthropometrics: Height: 182.9 cm (6') Weight: (!) 250 kg (550 lb 6.4 oz) BMI (Calculated): 74.63 Weight Evaluation: Extreme Obesity (BMI > 40) [place] Body Weight (kg): 80.9 Percent [place] Body Weight: 311 Adjusted Body Weight (kg): 124 Wt Readings from Last 5 Encounters: 05/09/25 (!) 250 kg (550 lb 6.4 oz) 01/10/25 (!) 256 kg (563 lb 4.8 oz) 12/14/24 (!) 256 kg (564 lb 6 oz) 12/11/24 (!) 256 kg (564 lb 6 oz) 09/13/24 (!) 250 kg (551 lb 13 oz) Estimated Needs: Metabolic Cart Study Results: Current Nutrition Intake: Diet Order: Adult Diet Diet Texture: Regular Adult Carbohydrate Restriction: Consistent CHO 2 ([id number] Steven, 80 g/meal) Adult Sodium Restriction: 2,000 mg Na Percent Meals Eaten (%): 100% of meals Diet Experience and Nutrition History: Diet Education Provided: Will monitor Pertinent home medications: Albuterol, Bumex, Insulin, Metformin, Ozempic, Aldactone Anglican needs: Nutrition Focused Physical Exam: Physical exam performed on (date): 05/02 Temples (muscles): None Clavicle (muscle): None Shoulder (muscle): None Interosseous (muscle): None Calf (muscle): None Orbital (fat): None Triceps (fat): None Assessment of Malnutrition: Malnutrition Identified: No Nutrition Problem: Increased nutrient needs kcal, pro related to increased biological demand for healing as evidenced by right foot DM ulcer s/p amputation. Status of Nutrition Diagnosis: Ongoing Nutrition Interventions and Recommendations: - Continue regular, CC2, 2 gm sodium diet - Kyree BID (160 kcal, 14g total L-Arginine and 14g L-Glutamine + 5g total Collagen) to aid in wound healing; please start daily MVI in addition Nutrition Monitoring and Goals: - Pt will tolerate >75% avg of meal intakes (met) - Pt will maintain weight this admission (ongoing) - Blood Glucose <200mg/dl during admission (ongoing) Acuity Level: [address], LD [1] Past Medical History: Diagnosis Date Acute kidney injury 05/19/2024 Alcohol abuse, in remission Alcohol abuse, in remission Anxiety disorder, unspecified Anxiety Arthritis Atrial fibrillation (CMS/HCC) CAP (community acquired pneumonia) 05/19/2024 Cellulitis 05/19/2024 CHF (congestive heart failure) COPD (chronic obstructive pulmonary disease) Depression GERD (gastroesophageal reflux disease) Hyperlipidemia Hypertension Left lower lobe pneumonia 05/19/2024 Sleep apnea Sleep apnea, obstructive Type 2 diabetes mellitus [2] Past Surgical History: Procedure Laterality Date ARTERIAL STENT PLACEMENT CHOLECYSTECTOMY GASTRIC BYPASS [3] atorvastatin, 40 mg, Oral, Nightly bisoprolol, 10 mg, Oral, BID bumetanide, 4 mg, Oral, TID cariprazine, 3 mg, Oral, Daily dilTIAZem CD, 120 mg, Oral, Daily finasteride, 5 mg, Oral, Daily fluticasone, 2 spray, Each Nostril, Daily gabapentin, 600 mg, Oral, TID insulin regular, 200 Units, Subcutaneous, BID with meals Kyree, 1 packet, Oral, BID magnesium oxide, 800 mg, Oral, Daily miconazole, , Topical, BID pantoprazole, 40 mg, Oral, Daily before breakfast polyethylene glycol, 17 g, Oral, Daily rivaroxaban, 20 mg, Oral, Daily with dinner sodium chloride, 10 mL, Intravenous, q12h spironolactone, 100 mg, Oral, Daily tamsulosin, 0.4 mg, Oral, Daily traZODone, 100 mg, Oral, Nightly venlafaxine XR, 150 mg, Oral, Daily [4] [5] PRN medications: acetaminophen, albuterol, glucose OR dextrose 10 % OR dextrose 10 % OR glucagon (human recombinant), guaiFENesin, ipratropium-albuterol, LORazepam, oxyCODONE, sodium chloride, Insert peripheral IV AND Saline lock IV AND sodium chloride AND sodium chloride * Progress Notes - Lynda Choudhury, FITTING ROOM OPERATOR - 05/09/2025 8:09 AM EDT Endocrine - Diabetes Consult follow-up: Subjective: 24 hour update: -No acute events overnight -started on u-500 insulin on 05/08 -AM blood glucose: 306 -PO intake: eating 100% of meals; patient did state he drank two juices this morning at breakfast -patient laying in bed at time of visit. Patient is going to see if can bring in his home u-500 if she comes to visit today. [facility] did indicate that most patients that utilize u-500 brought their own supply. -plans to discharge to rehab sometime this coming week -Endocrine pharmacist corresponded with [facility] to ensure they would be able to administer u-500 insulin -patient reports that once the new year hits, he worries about the cost of U500 insulin I have reviewed the patient's blood glucose levels, labs, vitals, and insulin doses administered inthe electronic medical record. Review of Systems Constitutional: Positive for activity change. Negative for chills and fever. Respiratory: Positive for shortness of breath (intermittent with exertion). Cardiovascular: Negative for chest pain and palpitations. Gastrointestinal: Negative for diarrhea, nausea and vomiting. Endocrine: See HPI Genitourinary: Negative for difficulty urinating and dysuria. Barber catheter in place Skin: Positive for wound. Objective: Physical Exam Constitutional: General: He is not in acute distress. Appearance: He is obese. HENT: Head: Normocephalic and atraumatic. Right Ear: External ear normal. Left Ear: External ear normal. Nose: Nose normal. Mouth/Throat: Mouth: Mucous membranes are moist. Eyes: Conjunctiva/sclera: Conjunctivae normal. Pulmonary: Effort: Pulmonary effort is normal. No respiratory distress. Genitourinary: Comments: Barber catheter draining clear yellow urine Skin: General: Skin is warm and dry. Coloration: Skin is not jaundiced. Comments: Wound vac in place to right foot Neurological: Mental Status: He is alert. Psychiatric: Mood and Affect: Mood normal. BP (!) 152/74 Pulse 64 Temp 36.4 ??C (97.5 ??F) Resp 20 Ht 1.829 m (6') Wt (!) 250 kg (550 lb 6.4 oz) BMI 74.65 kg/m?? Medications: Current Scheduled Medications[1] Current Continuous Medications[2] Current PRN Medications[3] Diet Dietary Orders (From admission, onward) Start Ordered 05/02/25 1413 Adult diet Diet texture: Regular; Carbohydrate restriction: Consistent Carb 2 (80 gm max/meal); Sodium restriction: 2,000 mg Na Diet effective now References: IDDSI Diet Texture Guide Question Answer Comment Diet texture Regular Carbohydrate restriction: Consistent Carb 2 (80 gm max/meal) Sodium restriction: 2,000 mg Na 05/02/25 1413 Lab Review: Results from last 7 days Lab Units 05/03/25 1822 SODIUM mmol/L 133* POTASSIUM mmol/L 3.6 CHLORIDE mmol/L 87* CO2 mmol/L 37* BUN mg/dL 14 CREATININE mg/dL 0.71 EGFR mL/min/1.73m*2 113.9 GLUCOSE mg/dL 290* CALCIUM mg/dL 9.4 Results from last 7 days Lab Units 05/03/25 0316 WBC 10*3/uL 6.86 HEMOGLOBIN g/dL 8.9* HEMATOCRIT % 29.2* PLATELETS 10*3/uL 202 Lab Results Component Value Date GLUCOSE 290 (H) 05/03/2025 GLUCOSE 399 (H) 05/03/2025 GLUCOSE 358 (H) 05/02/2025 PGLU 306 (H) 05/09/2025 PGLU 273 (H) 05/08/2025 PGLU 310 (H) 05/08/2025 PGLU 347 (H) 05/08/2025 PGLU 298 (H) 05/08/2025 PGLU 346 (H) 05/08/2025 PGLU 388 (H) 05/08/2025 PGLU 392 (H) 05/07/2025 I reviewed bg tracing in epic glucose timeline 05/09/25 ASSESSMENT Hospital Course: Gonzalo Samlls is a 49 y.o. male with hx of CHF, HTN, HLD, a.fib, type 2 DM [on U500 insulin], COPD, QUINN on nightly oxygen, recurrent UTIs, BPH, morbid obesity, and anxiety/depression. Patient presented to ED for evaluation of worsening right diabetic foot ulcer. Mr. Smalls presented to an OSH and Podiatry they are recommended to coming to for evaluation due to his size and delayed abilityto get him in the OR. Of note, Mr. Smalls is receiving enteral panel for recurrent UTI and has a chronic Barber. Per chart review it appears that the kidney infection is for ESBL E coli. ED lab work was significant for leukocytosis, anemia, hyperglycemia, hypokalemia, hypomagnesemia, elevated CRP and sed rate. 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 Hospital medicine was consulted for admission. Endocrine Diabetes team was consulted for glycemic management on 04/28/25. Patient on U500 insulin dosing at home. Daily Glucose and Insulin Total Daily Dose -consulted 04/28 AM BG 199 -04/30: 173-226, TDD 114 units -05/01: 222-316, TDD 133 units -05/02: 250-358, TDD 180 units -05/03: 258-372, TDD 220 units - 05/04: 236-335, TDD 226 units -05/05: 290-371, TDD 286 units -05/06: 212-364, TDD 344 units -05/07 350-411 TDD 405 units -05/08: 273-388 TDD 446 units -05/09: 306 -A1c: Lab Results Component Value Date HGBA1C 8.9 (H) 04/29/2025 -Diet: regular CC2 [80 g/meal] -Steroids: none Diagnoses #diabetic foot ulcer -OR 05/01 for right 4th and 5th toe amputation #UTI -barber in place #obesity -BMI 81.99 -complicates all aspects of care - contributes to insulin resistance #diabetes mellitus - type 2 -Home medications: CGM: Dexcom G7 Insulin regimen: U500 insulin: prescription for 225 units BID patient reports taking 200 units BID --> first dispensed 03/24/2025 - last dispensed 04/24/2025. insulin pen Reports being on U500 insulin for about 1 month and glycemic control has significantly improved Non insulin diabetes medications: Ozempic - recently started increased dose 0.5 mg this past week Metformin 100 mg BID Failed/Discontinued meds: Glargine: last dispensed 04/17/2025 Novolog mix last dispensed 02/22/2025 Jardiance Did not tolerate Mounjaro due to GI issues, constipation -see inpatient diabetes plan of care below PLAN: Primary team requesting recommendations and orders -After review of glucose trends and insulin delivery over the last 24 hours patient's glucose levels above inpatient goal of 140-180.: will increase BID dosing of u-500 starting with evening dose Current Hospital Regimen: Insulin regimen: Humulin R u 500 200 units BID Increase to 225 units BID starting with evening dose -Continue intensive glucose monitoring due to increased risk for hyper/hypoglycemia secondary to insulin therapy -Will continue to assess blood glucose trends and adjust basal/bolus insulin therapy dose according -fsbg ac/hs when eating, q6h when NPO, on TF/TPN -correction insulin to be given for hyperglycemia, do not hold correction if patient does not eat. -hypoglycemia protocol in place -Please document the percentage of meals consumed in intake and output flowsheet. -please notify us when diet orders change or steroids added as this impacts our tx NOTE: -Patient utilizes U500 insulin pen at home. With the U500 pen, a conversion is not needed. Typically patient's required a 70% reduction in home U500 dosing. 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 - Anette Kendall -Tentative discharge recommendations: NOTE: -patient reports that once the new year hits, he worries about the cost of U500 insulin -patient with plans to discharge to [facility] once able - need to check with [facility] to see if they are okay with utilizing U500 insulin if patient is able to bring in his own supply Insulin regimen - would like patient to utilize U500 home dosing at [facility] Continue Dexcom G7 CGM Likely continue Ozempic Likely continue metformin May substitute for therapeutic equivalent per insurance and retail PharmD approval -Supplies/scripts needed: Ensure patient has working glucose meter and supplies as back-up to CGM Lynda Choudhury APRN DM/Endo team will continue to follow. Please notify us as patient nears discharge for final recommendations Please contact Lynda Choudhury APRN [place] Adult Inpatient Diabetes team via secure chat or page us at [phone] during 7a-7p, Thursday-Thursday. For after hours please contact the on-call Endocrine Fellow. Thank you for the opportunity to participate in this patient's care. - Reviewed notes by primary team and consulting services to determine appropriate plan of care as in the note. - Discussed plan and management with patient, bedside RN, endocrine pharmacist Time Spent: I personally spent a total of 35 minutes on this encounter. This time includes face to face with patient, counseling and discussion and/or coordination of care. [1] atorvastatin, 40 mg, Oral, Nightly bisoprolol, 10 mg, Oral, BID bumetanide, 4 mg, Oral, TID cariprazine, 3 mg, Oral, Daily dilTIAZem CD, 120 mg, Oral, Daily finasteride, 5 mg, Oral, Daily fluticasone, 2 spray, Each Nostril, Daily gabapentin, 600 mg, Oral, TID insulin regular, 200 Units, Subcutaneous, BID with meals Kyree, 1 packet, Oral, BID magnesium oxide, 800 mg, Oral, Daily miconazole, , Topical, BID pantoprazole, 40 mg, Oral, Daily before breakfast polyethylene glycol, 17 g, Oral, Daily rivaroxaban, 20 mg, Oral, Daily with dinner sodium chloride, 10 mL, Intravenous, q12h spironolactone, 100 mg, Oral, Daily tamsulosin, 0.4 mg, Oral, Daily traZODone, 100 mg, Oral, Nightly venlafaxine XR, 150 mg, Oral, Daily [2] [3] PRN medications: acetaminophen, albuterol, glucose OR dextrose 10 % OR dextrose 10 % OR glucagon (human recombinant), guaiFENesin, ipratropium-albuterol, LORazepam, oxyCODONE, sodium chloride, Insert peripheral IV AND Saline lock IV AND sodium chloride AND sodium chloride * Progress Notes - Selin Lee MD - 05/09/2025 7:37 AM EDT Subjective No concerns. Doing well this morning. Denies any symptoms. Review of Systemsper HPI Objective Vitals Temp: [36.4 ??C (97.5 ??F)-36.8 ??C (98.3 ??F)] 36.4 ??C (97.5 ??F) Heart Rate: [64-68] 66 Resp: [15-20] 20 BP: (115-149)/(71-80) 141/80 Physical Exam Vitals reviewed. Constitutional: Appearance: Normal appearance. He is obese. HENT: Head: Normocephalic and atraumatic. Nose: Nose normal. Eyes: Extraocular Movements: Extraocular movements intact. Cardiovascular: Rate and Rhythm: Normal rate. Pulmonary: Effort: Pulmonary effort is normal. Abdominal: General: Abdomen is flat. Musculoskeletal: General: Normal range of motion. Cervical back: Normal range of motion. Comments: R 5th metatarsal absent with wound vac on lateral and plantar foot Skin: General: Skin is warm. Neurological: General: No focal deficit present. Mental Status: He is alert and oriented to person, place, and time. Psychiatric: Mood and Affect: Mood normal. Behavior: Behavior normal. 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 49 yo gentleman with obesity and T2DM admitted for R diabetic foot ulcer with osteomyelitis now s/pR 5th metatarsal amputation on 05/01 with ID and vascular following whose surgical pathology is negative for OM off antibiotics now awaiting placement at acute rehab Diabetic foot ulcer with 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 - P/w worsening wound R foot found to have elevated inflammatory markers and CT showing possible OMunable to do MRI 08/14 weight - Consults: vascular, ID - S/p amputation 05/01 - Wound vac placed 05/03 - Surgical pathology negative for OM as of 05/06 - Adult ID screening labs, needs hep B vaccine Plan: - Wound vac changes every 2 days - NWB until vascular surgery follow-up in 1 month at least, scheduled for 05/30 DM , Poorly controlled Hyperglycemia - Home regimen 200 BID - BG ranges 200s - Transitioned to U500 on 05/07 per endo recs - Hospital regimen NPH 35 daily, U500 200 BID - Endocrine following, appreciate recs Urinary retention s/p barber - HX several months worsening progressive urinary retention since was hospitalized for abdominal infection which has been following with urology outpatient at [facility]. They have postulated this to be related to his diabetes and have had several voiding trials which have failed. Also has un dergone proctoscopy (?) which was normal. 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 and he were hoping to get a second opinion while here at - PSA WNL 05/06 - Barber care per protocol - Continue home flomax - Continue finasteride, started 05/06 - Urology consulted, No urologic intervention indicated at this time, recommend continuing indwelling barber with exchanges every 4-6 weeks for chronic urinary retention Chronic CHRF-home 2L HTN-BB AF-AC, dilt HF-bumex, gracie HLD-statin COPD-inhalers A/D-vraylar, lorazepam, venlafaxine Insomnia-trazadone GERD--PPI QUINN-?CPAP, needs sleep study outpatient Obesity-complicates care Diet-carb 1 DVT PPX AC FULL CODE Medically Ready for Discharge:Ready now, awaiting placement to [facility] Selin Lee [employer] Division of Hospital Medicine [facility] * Care Plan - Checo Monson - 05/08/2025 11:24 PM EDT Problem: Skin Injury Risk Increased Goal: Skin Health and Integrity Outcome: Ongoing, Progressing Intervention: Optimize Skin Protection Flowsheets Taken 05/08/2025 2046 by Checo Monson Activity Management: activity adjusted per tolerance Taken 05/08/2025 0600 by Judd Zavaleta, RN Head of Bed (HOB) Positioning: HOB elevated Taken 05/06/20251999 by Judd Zavaleta, RN Pressure Reduction Devices: positioning supports utilized pressure-redistributing mattress utilized Taken 05/05/2025 0118 by Cassie Gilliam Pressure Reduction Techniques: frequent weight shift encouraged weight shift assistance provided Skin Protection: incontinence pads utilized Problem: Adult Inpatient Plan of Care Goal: Plan of Care Review Outcome: Ongoing, Progressing Flowsheets Taken 05/08/2025 1624 by Jennifer Saldana Progress: improving Taken 05/07/20251999 by Judd Zavaleta RN Plan of Care Reviewed With: patient Taken 05/06/2025 1416 by Jennifer Saldana Outcome Evaluation: pt agreeable to plan of care Goal: Patient-Specific Goal (Individualized) Outcome: Ongoing, Progressing Goal: Absence of Hospital-Acquired Illness or Injury Outcome: Ongoing, Progressing Goal: Optimal Comfort and Wellbeing Outcome: Ongoing, Progressing Problem: Fall Injury Risk Goal: Absence of Fall and Fall-Related Injury Outcome: Ongoing, Progressing Problem: Infection Goal: Absence of Infection Signs and Symptoms Outcome: Ongoing, Progressing Problem: Mobility Impairment Goal: Optimal Mobility Outcome: Ongoing, Progressing Problem: Mobility Impairment Goal: Optimal Mobility Outcome: Ongoing, Progressing Problem: Diabetes Goal: Optimal Coping Outcome: Ongoing, Progressing Goal: Optimal Functional Ability Outcome: Ongoing, Progressing Goal: Blood Glucose Level Within Target Range Outcome: Ongoing, Progressing Goal: Minimize Hypoglycemia Risk Outcome: Ongoing, Progressing Problem: Comorbidity Management Goal: Maintenance of Asthma Control Outcome: Ongoing, Progressing Goal: Maintenance of Behavioral Health Symptom Control Outcome: Ongoing, Progressing Goal: Maintenance of COPD Symptom Control Outcome: Ongoing, Progressing Goal: Blood Glucose Level Within Target Range Outcome: Ongoing, Progressing Goal: Maintenance of Heart Failure Symptom Control Outcome: Ongoing, Progressing Goal: Blood Pressure in Desired Range Outcome: Ongoing, Progressing Goal: Maintenance of Osteoarthritis Symptom Control Outcome: Ongoing, Progressing Goal: Bariatric Home Regimen Maintained Outcome: Ongoing, Progressing Goal: Maintenance of Seizure Control Outcome: Ongoing, Progressing Problem: Wound Goal: Optimal Coping Outcome: Ongoing, Progressing Goal: Optimal Pain Control and Function Outcome: Ongoing, Progressing Goal: Optimal Wound Healing Outcome: Ongoing, Progressing Intervention: Promote Wound Healing Flowsheets (Taken 05/07/20251999 by Judd Zavaleta RN) Sleep/Rest Enhancement: noise level reduced regular sleep/rest pattern promoted relaxation techniques promoted room darkened awakenings minimized Problem: Pain Acute Goal: Optimal Pain Control and Function Outcome: Ongoing, Progressing * Progress Notes - Lynda Choudhury APRN - 05/08/2025 5:30 PM EDT Endocrine - Diabetes Consult follow-up: Subjective: 24 hour update: -No acute events overnight -plans to discharge to rehab sometime this coming week -continues with hyperglycemia -BG 346 -PO intake: patient endorses good intake. States he is not eating food outside his meal trays; occasionally has a bedtime snack of turkey sandwich -discussed with endocrine pharmacist and Attending and decision made to restart u-500 -Endocrine pharmacist corresponded with [facility] to ensure they would be able to administer u-500 insulin -patient reports that once the new year hits, he worries about the cost of U500 insulin I have reviewed the patient's blood glucose levels, labs, vitals, and insulin doses administered inthe electronic medical record. Review of Systems Constitutional: Negative for chills and fever. Respiratory: Positive for shortness of breath. Cardiovascular: Negative for chest pain and palpitations. Gastrointestinal: Negative for diarrhea, nausea and vomiting. Genitourinary: Negative for difficulty urinating and dysuria. Skin: Positive for wound. Objective: Physical Exam Constitutional: General: He is not in acute distress. Appearance: He is obese. HENT: Head: Normocephalic and atraumatic. Right Ear: External ear normal. Left Ear: External ear normal. Nose: Nose normal. Mouth/Throat: Mouth: Mucous membranes are moist. Eyes: Conjunctiva/sclera: Conjunctivae normal. Pulmonary: Effort: Pulmonary effort is normal. No respiratory distress. Musculoskeletal: Comments: Wound vac in place to right foot Skin: General: Skin is warm and dry. Coloration: Skin is not jaundiced. Neurological: Mental Status: He is alert and oriented to person, place, and time. Psychiatric: Mood and Affect: Mood normal. BP 127/73 (BP Location: Right arm, Patient Position: Lying) Pulse 68 Temp 36.8 ??C (98.2 ??F) (Oral) Resp 15 Ht 1.829 m (6') Wt (!) 246 kg (542 lb) BMI 73.51 kg/m?? Medications: Current Scheduled Medications[1] Current Continuous Medications[2] Current PRN Medications[3] Diet Dietary Orders (From admission, onward) Start Ordered 05/02/25 1413 Adult diet Diet texture: Regular; Carbohydrate restriction: Consistent Carb 2 (80 gm max/meal); Sodium restriction: 2,000 mg Na Diet effective now References: IDDSI Diet Texture Guide Question Answer Comment Diet texture Regular Carbohydrate restriction: Consistent Carb 2 (80 gm max/meal) Sodium restriction: 2,000 mg Na 05/02/25 1413 Lab Review: Results from last 7 days Lab Units 05/03/25 1822 SODIUM mmol/L 133* POTASSIUM mmol/L 3.6 CHLORIDE mmol/L 87* CO2 mmol/L 37* BUN mg/dL 14 CREATININE mg/dL 0.71 EGFR mL/min/1.73m*2 113.9 GLUCOSE mg/dL 290* CALCIUM mg/dL 9.4 Results from last 7 days Lab Units 05/03/25 0316 WBC 10*3/uL 6.86 HEMOGLOBIN g/dL 8.9* HEMATOCRIT % 29.2* PLATELETS 10*3/uL 202 Lab Results Component Value Date GLUCOSE 290 (H) 05/03/2025 GLUCOSE 399 (H) 05/03/2025 GLUCOSE 358 (H) 05/02/2025 PGLU 346 (H) 05/08/2025 PGLU 388 (H) 05/08/2025 PGLU 392 (H) 05/07/2025 PGLU 411 (H) 05/07/2025 PGLU 350 (H) 05/07/2025 PGLU 356 (H) 05/07/2025 PGLU 407 (H) 05/07/2025 PGLU 324 (H) 05/06/2025 I reviewed bg tracing in epic glucose timeline 05/08/25 ASSESSMENT Hospital Course: Gonzalo Smalls is a 49 y.o. male with hx of CHF, HTN, HLD, a.fib, type 2 DM [on U500 insulin], COPD, QUINN on nightly oxygen, recurrent UTIs, BPH, morbid obesity, and anxiety/depression. Patient presented to ED for evaluation of worsening right diabetic foot ulcer. Mr. Smalls presented to an OSH and Podiatry they are recommended to coming to for evaluation due to his size and delayed abilityto get him in the OR. Of note, Mr. Smalls is receiving enteral panel for recurrent UTI and has a chronic Barber. Per chart review it appears that the kidney infection is for ESBL E coli. ED lab work was significant for leukocytosis, anemia, hyperglycemia, hypokalemia, hypomagnesemia, elevated CRP and sed rate. 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 Hospital medicine was consulted for admission. Endocrine Diabetes team was consulted for glycemic management on 04/28/25. Patient on U500 insulin dosing at home. Daily Glucose and Insulin Total Daily Dose -consulted 04/28 AM BG 199 -04/30: 173-226, TDD 114 units -05/01: 222-316, TDD 133 units -05/02: 250-358, TDD 180 units -05/03: 258-372, TDD 220 units - 05/04: 236-335, TDD 226 units -05/05: 290-371, TDD 286 units -05/06: 212-364, TDD 344 units -05/07 350-411 TDD 405 units -05/08: 346 -A1c: Lab Results Component Value Date HGBA1C 8.9 (H) 04/29/2025 -Diet: regular CC2 [80 g/meal] -Steroids: none Diagnoses #diabetic foot ulcer -OR 05/01 for right 4th and 5th toe amputation #UTI -barber in place #obesity -BMI 81.99 -complicates all aspects of care - contributes to insulin resistance #diabetes mellitus - type 2 -Home medications: CGM: Dexcom G7 Insulin regimen: U500 insulin: prescription for 225 units BID patient reports taking 200 units BID --> first dispensed 03/24/2025 - last dispensed 04/24/2025. insulin pen Reports being on U500 insulin for about 1 month and glycemic control has significantly improved Non insulin diabetes medications: Ozempic - recently started increased dose 0.5 mg this past week Metformin 100 mg BID Failed/Discontinued meds: Glargine: last dispensed 04/17/2025 Novolog mix last dispensed 02/22/2025 Jardiance Did not tolerate Mounjaro due to GI issues, constipation -see inpatient diabetes plan of care below PLAN: Primary team requesting recommendations and orders -working with pharmacy to see about U500 dosing - recommend starting with 180- 200 units U500 BID. -discussed with endocrine attending - Dr. Cantor in agreement -After review of glucose trends and insulin delivery over the last 24 hours, titration of intensiveinsulin therapy was made to overall improve glycemic control and improve patient outcomes Current Hospital Regimen: The following changes made to insulin regimen to assist with persistent hyperglycemia. Patient will resume u-500 insulin starting with evening dose and then BID dosing starting 05/09 Insulin regimen: Basal: 80 units , NPH, BID Discontinued PLUS 25 units in the afternoon, increased to 35 units x 1 dose at noon then discontinued Bolus: 48 units lispro to cover meals, Increased to 56 units starting with lunch x 1 dose at lunch then discontinued -Give 1/2 dose if eating 25-50% of meal -HOLD if patient NPO or if patient eats less than 25% of meal -Please document % of meal consumed in intake and output flowsheet. NOTE: Snack dose: 18 units lispro PRN for overnight snacking Correction: very resistant dosing 3:50>150 lispro at mealtimes; 1;50>250 lispro bedtime, 3am PRN x 1 dose at lunch then discontinued although may need in addition to u 500 Start Humulin R u 500 200 units BID starting with evening dose -Continue intensive glucose monitoring due to increased risk for hyper/hypoglycemia secondary to insulin therapy -Will continue to assess blood glucose trends and adjust basal/bolus insulin therapy dose according -fsbg ac/hs when eating, q6h when NPO, on TF/TPN -correction insulin to be given for hyperglycemia, do not hold correction if patient does not eat. -hypoglycemia protocol in place -Please document the percentage of meals consumed in intake and output flowsheet. -please notify us when diet orders change or steroids added as this impacts our tx NOTE: -Patient utilizes U500 insulin pen at home. With the U500 pen, a conversion is not needed. Typically patient's required a 70% reduction in home U500 dosing. 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 - Anette Kendall -Tentative discharge recommendations: NOTE: -patient reports that once the new year hits, he worries about the cost of U500 insulin -patient with plans to discharge to [facility] once able - need to check with [facility] to see if they are okay with utilizing U500 insulin if patient is able to bring in his own supply Insulin regimen - would like patient to utilize U500 home dosing at [facility] Continue Dexcom G7 CGM Likely continue Ozempic Likely continue metformin May substitute for therapeutic equivalent per insurance and retail PharmD approval -Supplies/scripts needed: Ensure patient has working glucose meter and supplies as back-up to CGM Lynda Choudhury APRN DM/Endo team will continue to follow. Please notify us as patient nears discharge for final recommendations Please contact Lynda Choudhury APRN [place] Adult Inpatient Diabetes team via secure chat or page us at [phone] during 7a-7p, Thursday-Thursday. For after hours please contact the on-call Endocrine Fellow. Thank you for the opportunity to participate in this patient's care. - Reviewed notes by primary team and consulting services to determine appropriate plan of care as in the note. - Discussed plan and management with patient, bedside RN, endocrine pharmacist, primary team, Endocrine Attending Time Spent: I personally spent a total of 35 minutes on this encounter. This time includes face to face with patient, counseling and discussion and/or coordination of care. [1] atorvastatin, 40 mg, Oral, Nightly bisoprolol, 10 mg, Oral, BID bumetanide, 4 mg, Oral, TID cariprazine, 3 mg, Oral, Daily dilTIAZem CD, 120 mg, Oral, Daily finasteride, 5 mg, Oral, Daily fluticasone, 2 spray, Each Nostril, Daily gabapentin, 600 mg, Oral, TID insulin lispro, 0-15 Units, Subcutaneous, TID with meals insulin lispro, 0-3 Units, Subcutaneous, Twice at night Insulin Lispro, 48 Units, Subcutaneous, TID with meals insulin NPH (Isophane), 25 Units, Subcutaneous, Daily insulin NPH (Isophane), 80 Units, Subcutaneous, BID Kyree, 1 packet, Oral, BID magnesium oxide, 800 mg, Oral, Daily miconazole, , Topical, BID pantoprazole, 40 mg, Oral, Daily before breakfast polyethylene glycol, 17 g, Oral, Daily rivaroxaban, 20 mg, Oral, Daily with dinner sodium chloride, 10 mL, Intravenous, q12h spironolactone, 100 mg, Oral, Daily tamsulosin, 0.4 mg, Oral, Daily traZODone, 100 mg, Oral, Nightly venlafaxine XR, 150 mg, Oral, Daily [2] [3] PRN medications: acetaminophen, albuterol, glucose OR dextrose 10 % OR dextrose 10 % OR glucagon (human recombinant), guaiFENesin, Insulin Lispro, ipratropium-albuterol, LORazepam, oxyCODONE, sodium chloride, Insert peripheral IV AND Saline lock IV AND sodium chloride AND sodium chloride * Care Plan - Jennifer Saldana - 05/08/2025 4:25 PM EDT Problem: Skin Injury Risk Increased Goal: Skin Health and Integrity Outcome: Ongoing, Progressing Problem: Adult Inpatient Plan of Care Goal: Plan of Care Review Outcome: Ongoing, Progressing Flowsheets Taken 05/08/2025 1624 by Jennifer Saldana Progress: improving Taken 05/07/20251999 by Judd Zavaleta RN Plan of Care Reviewed With: patient Taken 05/06/2025 1416 by Jennifer Saldana Outcome Evaluation: pt agreeable to plan of care Goal: Patient-Specific Goal (Individualized) Outcome: Ongoing, Progressing Flowsheets (Taken 05/07/20251999 by Judd Zavaleta RN) Patient/Family-Specific Goals (Include Timeframe): Pt will remain free of fall in this shift Individualized Care Needs: Safety Anxieties, Fears or Concerns: none Goal: Absence of Hospital-Acquired Illness or Injury Outcome: Ongoing, Progressing Goal: Optimal Comfort and Wellbeing Outcome: Ongoing, Progressing Problem: Fall Injury Risk Goal: Absence of Fall and Fall-Related Injury Outcome: Ongoing, Progressing Problem: Infection Goal: Absence of Infection Signs and Symptoms Outcome: Ongoing, Progressing Problem: Mobility Impairment Goal: Optimal Mobility Outcome: Ongoing, Progressing Problem: Mobility Impairment Goal: Optimal Mobility Outcome: Ongoing, Progressing Problem: Diabetes Goal: Optimal Coping Outcome: Ongoing, Progressing Goal: Optimal Functional Ability Outcome: Ongoing, Progressing Goal: Blood Glucose Level Within Target Range Outcome: Ongoing, Progressing Goal: Minimize Hypoglycemia Risk Outcome: Ongoing, Progressing Problem: Comorbidity Management Goal: Maintenance of Asthma Control Outcome: Ongoing, Progressing Goal: Maintenance of Behavioral Health Symptom Control Outcome: Ongoing, Progressing Goal: Maintenance of COPD Symptom Control Outcome: Ongoing, Progressing Goal: Blood Glucose Level Within Target Range Outcome: Ongoing, Progressing Goal: Maintenance of Heart Failure Symptom Control Outcome: Ongoing, Progressing Goal: Blood Pressure in Desired Range Outcome: Ongoing, Progressing Goal: Maintenance of Osteoarthritis Symptom Control Outcome: Ongoing, Progressing Goal: Bariatric Home Regimen Maintained Outcome: Ongoing, Progressing Goal: Maintenance of Seizure Control Outcome: Ongoing, Progressing Problem: Wound Goal: Optimal Coping Outcome: Ongoing, Progressing Goal: Optimal Pain Control and Function Outcome: Ongoing, Progressing Goal: Optimal Wound Healing Outcome: Ongoing, Progressing Intervention: Promote Wound Healing Flowsheets (Taken 05/07/20251999 by Judd Zavaleta RN) Sleep/Rest Enhancement: noise level reduced regular sleep/rest pattern promoted relaxation techniques promoted room darkened awakenings minimized Problem: Pain Acute Goal: Optimal Pain Control and Function Outcome: Ongoing, Progressing * Progress Notes - Mayra Apodaca RN - 05/08/2025 1:40 PM EDT Case Management Adult Progress Note Gonzalo Smalls 49 y.o. male CSN: [id number] Admission: 04/27/2025 9:29 PM Primary Problem: Diabetic foot ulcer Anticipated Discharge Date: TBD Has Discharge Plans Changed? No Medicare Second Notice: Greater than 2 days before discharge Medically Ready for Discharge: Ready Now Additional Comments Patient admitted for worsening right diabetic foot ulcer. Vascular surgery consulted. Patient s/p debridement and toe amputation on 05/01. ID consulted. Endocrine following. Per MD patient is medically ready for discharge. Patient s/p wound debridement and toe amputation on 05/01. Vascular placed wound vac on foot on 05/03. ID consulted for IV abx duration. No antibiotics needed. PT/OT recommend acute rehab. Patient agreeable to acute rehab. RNCM awaiting MD approval from [facility]. Liaison will reach out with answer. Will continue to follow. RNCM will continue to monitor for further discharge needs. Mayra Apodaca RN * Care Plan - Jeevan Shah RN - 05/08/2025 12:43 PM EDT Problem: Wound Goal: Optimal Wound Healing Outcome: Ongoing, Progressing Intervention: Promote Wound Healing Note: See recs, cont wound vac Patient evaluated by [facility] nurse, individualized recommendations placed and care plan interventions updated; see wound care note for details regarding recommendations to support optimal wound healing. * Progress Notes - Jeevan Shah RN - 05/08/2025 12:39 PM EDT Images from the original note were not included. Wound Care Consult Visit Date: 05/08/2025 Patient Name: Gonzalo Smalls Date of : 1975 Admit Date: 04/27/2025 Reason for Consult: IP Wound Orders (From admission, onward) Start Ordered 04/30/25 1437 Wound ostomy eval and treat 2 Wounds Associated Once Comments: Pictures available in chart Question: Instructions: Answer: Prior to sending evaluation & treat order, place wound/ostomy LDA, complete a wound/ostomy assessment, and consider taking a photograph to document. 04/30/25 1437 04/28/25 0703 Wound ostomy eval and treat Once Comments: Infectious Diabetic Foot Ulcer Clinical Pathway Patient Question: Reason for Consult? Answer: Infectious Diabetic Foot Ulcer Clinical Pathway Patient 04/28/25 0705 Wound History: obesity and T2DM admitted for R diabetic foot ulcer with osteomyelitis now s/p R 5thmetatarsal amputation on 05/01 with ID and vascular following whose surgical pathology is negative for OM off antibiotics now awaiting placement at acute rehab Wound Assessment: Wound 05/01/25 Surgical Toe (Comment which one) Anterior;Right (Active) Date First Assessed/Time First Assessed: 05/01/25 08 Present on Original Admission: No Hand Hygiene Completed: Yes Primary Wound Type: Surgical Location: Toe (Comment which one) Wound Location Orientation: Anterior;Right Assessments 05/08/2025 10:19 AM Wound Image Wound Assessment [place];Red (moist) Margins Well-defined edges Saba-Wound Assessment Intact Wound Length (cm) 11 cm Wound Width (cm) 6.5 cm Wound Surface Area (cm^2) 56.16 cm^2 Treatments Cleansed;Saline Dressing Vacuum dressing Number of Packing Pieces Used 1 Dressing Changed (S) Changed Dressing Status Intact No associated orders. Wound Team Summary Assessment: pt seen for wound vac dressing change, wound bed clean pink/red moist slight granulation, no bone exposed or felt, saba wound prepped with cavalon and drape half barrier ring at toe edge, 1 black foam used and good seal obtained @ 125. Stopped adaptic. Wound Team Plan: Wound care will follow up at regular intervals while inpatient; bedside nursing tofollow wound care recommendations as ordered and please re- consult sooner for new changes or concerns prior to follow up. Jeevan Shah RN CWOCN 05/08/2025 12:39 PM * Thi Chavarria RN - 05/08/2025 10:55 AM EDT Images from the original note were not included. Low-Carb Diets: How Do They Work - Video Watch this video to learn about the health benefits of a low carb diet. To view the video go to this web address: https://bit.ly/5I46VQ4 Or, scan this QR code with your smart phone ?? [facility] * Thi Chavarria RN - 05/08/2025 10:55 AM EDT Images from the original note were not included. 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 To view the video go to this web address: https://bit.ly/3FEbIyn Or, scan this QR code with your smart phone ?? [facility] * Thi Chavarria RN - 05/08/2025 10:55 AM EDT Images from the original note were not included. Diabetes: Daily Foot Check - Video Watch this video to learn how diabetes affects the feet and how to do daily foot checks. To view the video go to this web address: https://bit.ly/1V6eF6f Or, scan this QR code with your smart phone ?? [facility] [facility] * Thi Chavarria RN - 05/08/2025 10:55 AM EDT Images from the original note were not included. 4029 Special Foot Care for Diabetes It's important to take good care of your feet when you have diabetes. A condition called diabetic foot can land you in the hospital. This condition makes up about 1 in 4 hospital stays in people withdiabetes. Diabetic foot means a foot sore (ulcer) caused by nerve damage or poor blood flow in a person with diabetes. If you have diabetes, foot wounds or sores can also lead to serious infection. You may end up with gangrene or need an amputation. Long-term diabetes often leads to nerve damage (diabetic neuropathy). This damage makes it harder for you to feel small injuries to your feet. Fortunately, you can often prevent these serious wounds by looking at your feet every day. Here's what you can do to help prevent foot problems: ? Take care of your diabetes. Work with your care team to keep your blood sugar in your target range. ? Look at your feet every day. Check for sores, cuts, bruises, and toenail changes. Use a mirror tolook at the bottom of your feet if you need to. Call or see your doctor if you have cuts or breaks in the skin, have an ingrown nail, or if your foot changes color or shape, or becomes less sensitive. See your doctor right away if you see a new sore or if your foot becomes swollen, red, or painful.Stay off your feet if your doctor tells you to as part of your recovery. Be on the lookout for changes in your feet. Examples are bunions, claw toes, or hammertoes. You may need surgery. ? Wash your feet every day and dry them with care. Use a mild soap and lukewarm water. Always checkthe water temperature before putting your feet in the water. Dry your feet very carefully, especially between the toes. If the skin is dry, use a moisturizer. But don't use this between the toes. Extra moisture there can lead to fungal infections. You can put cornstarch between your toes to keep the spaces between your toes dry. ? Be careful with your toenails. Trim your toenails with a nail clipper. Trim them straight across,not into the corners. Use an emery board to gently smooth the nail. Have a gear lapper trim your nails if you can't see or feel your feet, have thick or yellowed nails, or have nails that grow into your skin. If you want a salon pedicure, bring your own nail tools to prevent an infection. Have the staff trim the nails as described above. ? Wear shoes and socks at all times. Never walk barefoot, even in your home. Wear comfortable shoesthat fit well and protect your feet. Check inside your shoes before wearing them to make sure the lining is smooth, and there are no objects inside. If your doctor tells you that you are at high riskfor foot problems, they may advise a specific shoe type. Wear soft, thick socks with no seams. Seams can rub and cause blisters. ? Exercise. Walking improves blood flow. It can also help control your weight. Wear correctly fitted walking shoes. ? Never try to remove corns, calluses, or warts by yourself. Ywhi-xug-souwlxi products can burn or damage your skin. Sometimes this damage can't be fixed. ? Don?t smoke. Smoking can cause poor blood flow to the feet and make wounds heal slowly. Many smokers with diabetes need amputations. Finally, take your shoes and socks off and ask your doctor to check your feet every time you go fora visit. A yearly foot exam is advised for all people with diabetes, or more often if you have problems. During this exam, your doctor will identify risk factors that can predict sores and amputations. Some risk factors are loss of feeling in your foot, foot deformities, and blood flow problems. The exam can be done either by your primary care doctor or by a gear lapper. This is a doctor who specializes in foot care. Some diabetes centers have regular foot clinics. Last Reviewed Date: 2024 00:00:00 ?? 7014-1623 [employer]. All rights reserved. This information is not intended as a substitute for professional medical care. Always follow your healthcare professional's instructions. * Ruy HoffmanMENG - Thi Carmona RN - 05/08/2025 10:55 AM EDT Images from the original note were not included. What is Type 2 Diabetes? - Video Watch this clip to understand what happens within your body when you have type 2 diabetes, and the importance of keeping your blood glucose levels within a healthy range. To view the video go to this web address: [email or web address].Akeneo/[email or web address] Or, scan this QR code with your smart phone ?? [employer] [facility] [facility] * Consults - Beatriz Hu DO - 05/08/2025 8:38 AM EDTAssociated Order(s): Inpatient consult to Urology Inpatient consult to Urology Consult performed by: Beatriz Hu DO Consult ordered by: Diane Guzman MD [facility] Consult Note 05/08/25 Service Requesting Consultation: Hospital Medicine CC: urinary retention HPI: Gonzalo Smalls is a 49 y.o. male with a past urologic history of urinary retention, recurrent UTIs,BPH, morbid obesity who presented to [facility] ED with diabetic foot ulcer. On 12/21/2024 patientwas called by urology to schedule an appointment and he stated that he would like to schedule closer to home. The patient is noted to be AF and HDS. The patient's labs are notable for WBC 6.86, hgb 8.9, cr 0.71. No urine studies have been obtained on. No recent urologic imaging. Urology was consulted for urinary retention with barber in place. Barber was placed around 7 days agoper patient and per staff, it is draining clear yellow urine 18Fr. He states that around 3 months ago he started to have dribbling from urethra and was found to have pyelonephritis and hydronephrosisdue to incomplete emptying he states. After this he presented to an [facility] urologist Dr. Painting who stated to patient that he had chronic urinary retention, performed a cystoscopy on him and stated thatprostate was normal and attributed retention to his uncontrolled DM Hgb A1c 9-10. For the past 3 months he has required a chronic barber catheter. He states that he would like to discuss further manage ment of chronic urinary retention and that he has now established care with a Dr. Mendenhall urologist galina is closer to home and he does not wish to FU with urology. Past Medical History: reviewed Past Medical History[1] Past Surgical History: reviewed Surgical History[2] Family History: reviewed Family History[3] Social History: reviewed Social History[4] Outpatient Medications: Current Outpatient Medications Medication Instructions albuterol 108 (90 Base) MCG/ACT inhaler 2 puffs, Every 4-6 hours prn atorvastatin (LIPITOR) 40 mg, Nightly bisoprolol (ZEBETA) 5 mg, 2 times daily bumetanide (BUMEX) 4 mg, 3 times daily cariprazine (VRAYLAR) 3 mg, Daily dilTIAZem CD (CARDIZEM CD) 120 mg, Daily gabapentin (NEURONTIN) 600 mg, 3 times daily HYDROcodone-acetaminophen ([place]) 10-325 MG tablet 1 tablet, Every 6 hours PRN Insulin Pen Needle (Pen [place]) 31G X 5 MM misc USE TO INJECT INSULIN 3 TIMES PER DAY insulin regular (HUMULIN R,NOVOLIN R) 200 Units, Subcutaneous, 2 times daily with meals LORazepam (ATIVAN) 1 mg, Oral, Daily PRN metFORMIN (Glucophage) 1000 MG tablet TAKE 1 TAB BY MOUTH 2 (TWO) TIMES A DAY WITH MEALS. MUST COMPLETE LABS FOR FURTHER RESULTS. mupirocin (Bactroban) 2 % ointment 1 Application, 2 times daily naloxone (NARCAN) 4 mg, Nasal, As needed omeprazole (PRILOSEC) 40 mg, 2 times daily ondansetron ODT (ZOFRAN-ODT) 8 mg, Every 12 hours PRN Ostomy Supplies (stomahesive) powder powder 1 Application, Topical, As needed, May apply powder over washed areas, and on top of protectant cream. May be mixed together for application. Ozempic (0.25 or 0.5 MG/DOSE) 0.25 mg, Weekly rivaroxaban (XARELTO) 20 mg, Daily spironolactone (ALDACTONE) 100 mg, Daily tamsulosin (FLOMAX) 0.4 mg, Daily traZODone (DESYREL) 100 mg, Nightly venlafaxine XR (EFFEXOR-XR) 150 mg, Daily PHYSICAL EXAM: Temp: [36.7 ??C (98 ??F)-36.8 ??C (98.2 ??F)] 36.8 ??C (98.2 ??F) Heart Rate: [59-74] 68 Resp: [15-18] 15 BP: (127-152)/(66-84) 127/73 SpO2: [93 %-98 %] 93 % GEN: NAD, morbidly obese HEENT: NCAT, EOMI RESP: Equal bilateral chest rise, normal work of breathing CV: Regular rate, appears well perfused ABD: Nondistended : 18Fr barber catheter in place draining clear yellow urine EXT: No gross deformities MSK: Full ROM in BL UE NEURO: No focal deficits, alert and oriented PSYCH: Normal mood and affect LABS: Results from last 7 days Lab Units 05/03/25 0316 WBC 10*3/uL 6.86 HEMOGLOBIN g/dL 8.9* HEMATOCRIT % 29.2* PLATELETS 10*3/uL 202 Results from last 7 days Lab Units 05/03/25 1822 SODIUM mmol/L 133* POTASSIUM mmol/L 3.6 CHLORIDE mmol/L 87* CO2 mmol/L 37* BUN mg/dL 14 CREATININE mg/dL 0.71 EGFR mL/min/1.73m*2 113.9 GLUCOSE mg/dL 290* CALCIUM mg/dL 9.4 Imaging: I have personally reviewed the imaging below: CT A/P 05/08/25: Hospital Problem List: Principal Problem: Diabetic foot ulcer Active Problems: Morbid obesity (CMS/HCC) Hypertension Type 2 diabetes Neuropathy CHF (congestive heart failure) COPD (chronic obstructive pulmonary disease) Depression Diabetic neuropathy Insomnia Lower back pain S/P gastric sleeve procedure 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 male with a past urologic history of urinary retention, recurrent UTIs, BPH, morbid obesity and uncontrolled diabetes who presented to [facility] ED with diabetic foot ulcer. On 12/21/2024 patient was called by urology to schedule an appointment and he stated that he would like to schedule closer to home. AF and HDS. Labs are WBC 6.86, hgb 8.9, cr 0.71.No urine studies have been obtained on. No recent urologic imaging. Urology was consulted for urinary retention with abrber in place. Barber was exchanged around 7 days ago per patient and per staff. On exam it is draining clear yellow urine from 18Fr. He states that around 3 months ago he started to have dribbling from urethra and was found to have pyelonephritis and hydronephrosis due to incomplete emptying he states. After this he presented to an [facility] urologist Dr. Painting who stated to patient that he had chronic urinary retention, performed a cystoscopy on himand stated that prostate was normal and attributed retention to his uncontrolled DM Hgb A1c 9-10. For the past 3 months he has required a chronic barber catheter. He states that he would like to discus s further management of chronic urinary retention and that he has now established care with a Dr. Mendenhall an [facility] urologist as this is closer to home and he does not wish to FU with urology. Plan: - No urologic intervention indicated at this time - Would recommend continuing indwelling barber with exchanges every 4-6 weeks for chronic urinary retention - Recommend preventing constipation - Recommend glucose control per primary - Patient states that he has now established care with a Dr. Mendenhall an [facility] urologist as this is closer to home and will call him to schedule a follow up appointment as he does not wish to FU with urology because it is too far from home Trudy Hu DO [1] Past Medical History: Diagnosis Date Acute kidney injury 05/19/2024 Alcohol abuse, in remission Alcohol abuse, in remission Anxiety disorder, unspecified Anxiety Arthritis Atrial fibrillation (CMS/HCC) CAP (community acquired pneumonia) 05/19/2024 Cellulitis 05/19/2024 CHF (congestive heart failure) COPD (chronic obstructive pulmonary disease) Depression GERD (gastroesophageal reflux disease) Hyperlipidemia Hypertension Left lower lobe pneumonia 05/19/2024 Sleep apnea Sleep apnea, obstructive Type 2 diabetes mellitus [2] Past Surgical History: Procedure Laterality Date ARTERIAL STENT PLACEMENT CHOLECYSTECTOMY GASTRIC BYPASS [3] Family History Problem Relation Name Age of Onset Alcohol abuse Mother Alcohol abuse Paternal Grandmother Alcohol abuse Mother's Sister Alcohol abuse Mother's Brother [4] Social History Tobacco Use Smoking status: Former Types: Cigarettes Smokeless tobacco: Current Types: Snuff Tobacco comments: 1 can daily. Vaping Use Vaping status: Never Used Substance Use Topics Alcohol use: Not Currently Drug use: No Comment: Drug use: No illicit drug use Cosigned by Froylan Dorantes MD at 05/09/2025 7:15 AM EDT Associated attestation - Froylan Dorantes MD - 05/09/2025 7:15 AM EDT I saw and evaluated the patient with the resident/fellow. I discussed the case with the resident/fellow and agree with the findings and plan as documented. * Progress Notes - Diane Guzman MD - 05/08/2025 8:15 AM EDT Subjective No concerns. Doing well this morning Review of Systemsper HPI Objective Vitals Temp: [36.7 ??C (98 ??F)-36.8 ??C (98.2 ??F)] 36.8 ??C (98.2 ??F) Heart Rate: [59-74] 68 Resp: [15-18] 15 BP: (127-152)/(66-84) 127/73 Physical Exam Vitals reviewed. Constitutional: Appearance: Normal appearance. He is obese. HENT: Head: Normocephalic and atraumatic. Nose: Nose normal. Eyes: Extraocular Movements: Extraocular movements intact. Cardiovascular: Rate and Rhythm: Normal rate. Pulmonary: Effort: Pulmonary effort is normal. Abdominal: General: Abdomen is flat. Musculoskeletal: General: Normal range of motion. Cervical back: Normal range of motion. Comments: R 5th metatarsal absent with wound vac on lateral and plantar foot Skin: General: Skin is warm. Neurological: General: No focal deficit present. Mental Status: He is alert and oriented to person, place, and time. Psychiatric: Mood and Affect: Mood normal. Behavior: Behavior normal. 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 49 yo gentleman with obesity and T2DM admitted for R diabetic foot ulcer with osteomyelitis now s/pR 5th metatarsal amputation on 05/01 with ID and vascular following whose surgical pathology is negative for OM off antibiotics now awaiting placement at acute rehab #Diabetic foot ulcer with 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 - P/w worsening wound R foot found to have elevated inflammatory markers and CT showing possible OMunable to do MRI 08/14 weight - Consults: vascular, ID - S/p amputation 05/01 - Wound vac placed 05/03 - Surgical pathology negative for OM as of 05/06 - Adult ID screening labs, needs hep B vaccine Plan: - Wound vac changes every 2 days - NWB until vascular surgery follow-up in 1 month at least, scheduled for 05/30 #DM #Poorly controlled #Hyperglycemia - Home regimen 200 BID - BG ranges 200s - Transitioned to U500 on 05/07 per endo recs - Hospital regimen NPH 35 daily, U500 200 BID - Endocrine following, appreciate recs #Urinary retention s/p barber - HX several months worsening progressive urinary retention since was hospitalized for abdominal infection which has been following with urology outpatient at [facility]. They have postulated this to be related to his diabetes and have had several voiding trials which have failed. Also has un dergone proctoscopy (?) which was normal. 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 and he were hoping to get a second opinion while here at - PSA WNL 05/06 - Barber care per protocol - Continue home flomax - Continue finasteride, started 05/06 - Urology consult #Chronic CHRF-home 2L HTN-BB AF-AC, dilt HF-bumex, gracie HLD-statin COPD-inhalers A/D-vraylar, lorazepam, venlafaxine Insomnia-trazadone GERD--PPI QUINN-?CPAP Obesity-complicates care Diet-carb 1 DVT PPX AC FULL CODE Medically Ready for Discharge:Ready now * Care Plan - Judd Zavaleta RN - 05/07/2025 11:16 PM EDT Problem: Skin Injury Risk Increased Goal: Skin Health and Integrity Outcome: Ongoing, Progressing Problem: Adult Inpatient Plan of Care Goal: Plan of Care Review Outcome: Ongoing, Progressing Flowsheets (Taken 05/07/20251999) Progress: improving Plan of Care Reviewed With: patient Goal: Patient-Specific Goal (Individualized) Outcome: Ongoing, Progressing Goal: Absence of Hospital-Acquired Illness or Injury Outcome: Ongoing, Progressing Goal: Optimal Comfort and Wellbeing Outcome: Ongoing, Progressing Problem: Fall Injury Risk Goal: Absence of Fall and Fall-Related Injury Outcome: Ongoing, Progressing Problem: Infection Goal: Absence of Infection Signs and Symptoms Outcome: Ongoing, Progressing Problem: Mobility Impairment Goal: Optimal Mobility Outcome: Ongoing, Progressing Problem: Mobility Impairment Goal: Optimal Mobility Outcome: Ongoing, Progressing Problem: Diabetes Goal: Optimal Coping Outcome: Ongoing, Progressing Goal: Optimal Functional Ability Outcome: Ongoing, Progressing Goal: Blood Glucose Level Within Target Range Outcome: Ongoing, Progressing Goal: Minimize Hypoglycemia Risk Outcome: Ongoing, Progressing Problem: Comorbidity Management Goal: Maintenance of Asthma Control Outcome: Ongoing, Progressing Goal: Maintenance of Behavioral Health Symptom Control Outcome: Ongoing, Progressing Goal: Maintenance of COPD Symptom Control Outcome: Ongoing, Progressing Goal: Blood Glucose Level Within Target Range Outcome: Ongoing, Progressing Goal: Maintenance of Heart Failure Symptom Control Outcome: Ongoing, Progressing Goal: Blood Pressure in Desired Range Outcome: Ongoing, Progressing Goal: Maintenance of Osteoarthritis Symptom Control Outcome: Ongoing, Progressing Goal: Bariatric Home Regimen Maintained Outcome: Ongoing, Progressing Goal: Maintenance of Seizure Control Outcome: Ongoing, Progressing Problem: Wound Goal: Optimal Coping Outcome: Ongoing, Progressing Goal: Optimal Pain Control and Function Outcome: Ongoing, Progressing Goal: Optimal Wound Healing Outcome: Ongoing, Progressing Intervention: Promote Wound Healing Flowsheets (Taken 05/07/20251999) Sleep/Rest Enhancement: noise level reduced regular sleep/rest pattern promoted relaxation techniques promoted room darkened awakenings minimized Problem: Pain Acute Goal: Optimal Pain Control and Function Outcome: Ongoing, Progressing * Progress Notes - Tonia Nguyen - 05/07/2025 11:53 AM EDT Physical Therapy Treatment Patient Name: Gonzalo Smalls Today's Date: 05/07/2025 PT Discharge Recommendations: Acute rehab Equipment Recommended: Defer to facility Subjective Pt agreed to session. He states he wants to be able to improve his strength to be able to stand. Heendorses being agreeable to attempting different strategies to improve his mobility. He states he does not want to sit in hospital recliner as it is too painful for his back and is unable to tolerate it. He states he has not been sitting EOB outside of therapy sessions but agreeable to sit EOB for each meal and understands to call out for nursing assist for his lines and tube management for bed transfer. Participants in Care Family/Caregiver Present: No Presentation Oxygen Therapy: Supplemental oxygen O2 Delivery Method: Nasal cannula O2 Flow Rate (L/min): 2 L/min Lines and Tubes: Intravenous access, Urinary catheter Pre-Session: Supine, Head of bed elevated, Lines intact Post-Session: Supine, Head of bed elevated, Lines intact, RN notified, Call light in reach Patient positioned for comfort and pressure relief at end of session, all needs met. Precautions Right Lower Extremity Weight Bearing Status: Non-Weight Bearing Medical Precautions: Fall precautions Objective Pain Delirium Screening RASS: Alert and calm Confusion Assessment Method-ICU (CAM-ICU/PCAM-ICU) Feature 3: Altered Level of Consciousness: Negative Bed Mobility Bed Mobility Exam: Scooting/Bridging Level of [place]: Stand-by assist Physical/Nonphysical Assist: Verbal Cues Bed Mobility Exam: Supine to Sit Level of [place]: Contact guard Physical/Nonphysical Assist: Set-up required, Verbal Cues, Minimal cues Bed Mobility Exam: Sit to Supine Level of [place]: Minimum assist (75% patient's effort) Physical/Nonphysical Assist: Set-up required, Verbal Cues, Minimal cues Transfers Transfer Exam: Sit to stand Level of D[place]: (Pt attempted with use of bariatric RW; however, unsuccessful 2/2 inability to maintain weightbearing restrictions RLE.) Transfer Exam: Bed to Chair/Chair to Bed Physical/Nonphysical Assist: (attempted sliding board transfer; however, once intiated, pt requested to return to bed due to dizziness.) Assistive Device: Sliding board Therapeutic Activity (38 minutes) Pt participated in therapeutic activity with focus on functional mobility and transfer training. Ptable to transfer to sitting EOB and maintain static sitting balance with SBA. He attempted STS x 2 trials but unable to successfully complete. Slide board transfer demonstrated to pt and pt set up toinitiate trial; however, trial not completed due to pt complaints of dizziness and request to return to supine. Therapeutic Exercise Access Code: [email or web address] HEP printed and pt received copy with verbal instructions as well. HEP focus on quad and gluteal strengthening. Assessment Pt responded well to session with limitations due to weakness and balance deficits causing inability to stand at this time while maintaining WB restrictions. Pt mobilizes well with bed transfers and demonstrates good weight shifting and scooting in seated position. Thus, progressing with transfer tr aining with use of sliding board may be beneficial to improve overall functional mobility and safety until pt able to progress with standing trials. He remains significantly limited at this time withmobility, and is unsafe to return home. He continues to be most appropriate for DC to acute rehab hospital following hospital stay. PT Recommendations Discharge Destination: Acute rehab Discharge Equipment: Defer to facility Plan Continue per PT POC with focus on functional mobility and transfer training. PT Goals PT GOAL DETAILS Goal Established Date Time Frame Goal Status PT Goal 1: Pt will be IND with HEP and discharge recommendations. 04/28/25 2 weeks PT Goal 2: Pt will perform sup<>sit with CGA. 04/28/25 2 weeks PT Goal 3: Pt will perform STS with LRAD and CGA. 04/28/25 2 weeks PT Goal 4: Pt will ambulate 50' with LRAD and CGA. 04/28/25 2 weeks PT Goal 5: Pt will navigate up/down 2 steps with CGA. 04/28/25 2 weeks Written by Tonia Nguyen on 05/07/25 at 11:53 AM. * Progress Notes - Asiya Daniels - 05/07/2025 11:43 AM EDT OCCUPATIONAL THERAPY TREATMENT PATIENT DATA Patient Name Gonzalo Smalls Session Date 05/07/2025 OT Discharge Recommendations Acute rehab Equipment Recommendations Defer to facility PRECAUTIONS Weight Bearing Precautions (if applicable) Right Lower Extremity Weight Bearing Status: Non-Weight Bearing Medical Precautions Medical Precautions: Fall precautions HOME LIVING/SET-UP Lives With Spouse (and 15 yo daughter) Home Type House Home Equipment Rolling walker, Cane (primarily cane) Home Layout One level, Stairs to enter with rails Number of Stairs: 3 Bathroom Layout Tub/Shower combo, Tub transfer bench Bathroom: Toilet: Standard Accessible Additional Comments has access to 02/02 PRIOR LEVEL OF FUNCTION Receives help from Spouse ADL Performance ADL Performance: Needs assistance Bathing: Needs assist Upper Body Dressing: Needs assist Lower Body Dressing: Needs assist Grooming: Needs assist Toileting: Independent Eating: Independent Home Management Skills: Needs assist PRESENTATION Oxygen Supplemental oxygen 2 L/min Lines and Tubes Urethral Catheter (Active) PICC Single Lumen 04/25/25 Left (Active) Negative Pressure Wound Therapy Toe (Comment which one) Anterior;Right (Active) Pre-Session Supine, Head of bed elevated, Lines intact RN cleared pt for therapy. Post-Session Supine, Head of bed elevated, Lines intact, RN notified, Call light in reach Pt positioned for comfort, all needs in reach. SUBJECTIVE PARTICIPANTS IN CARE Patient/Caregiver Comments RN cleared pt for therapy. Pt agreeable for OT treatment this morning. I'd love to et on that commode. Visitors Present Family/Caregiver Present: No OBJECTIVE PAIN Patient denies pain throughout session. DELIRIUM SCREENING RASS: Alert and calm Confusion Assessment Method-ICU (CAM-ICU/PCAM-ICU) Feature 3: Altered Level of Consciousness: Negative COGNITION SCREENING Overall Cognitive Status Within Functional Limits Arousal/Alertness Appropriate responses to stimuli Mood/Behavior Alert Command Following Single Step Commands: Consistently Multi-Step Commands: Consistently OT INTERVENTIONS Self-Care Interventions (28 minutes) Comments The patient engaged in skilled intervention for progression towards independence in basic self-cares, focusing on LB dressing, toileting, grooming, and functional ADL transfers. The patient benefited from the following OT interventions: Increased time provided for completion of task and to optimize participation. Skilled management of medical lines/tubes to reduce fall risk with functional ADL transfers. Encouragement and therapeutic use of self for maximized volitional effort and task attempts. Environmental set-up to ensure safety and accessibility to all needed areas of treatment space. *In response to above interventions, the patient performed all tasks as described below with appropriate additional interventions and assist levels provided based on observable deficits.* Level of Dundy Interventions Grooming Patient demo's adequate BUE strength/ROM for completion of upper body functional reach in prep for gooming routines. Deferred this date 2/2 dizziness at EOB. Lower Body Dressing Sock Level of Assistance: Maximum assistance MAX A required to don left non-slip sock, increased assist required 2/2 body habitus, impaired lower body reach, and impaired sitting balance/tolerance. Pt endorses requiring assist for task at baseline. Toileting Patient completed preparatory tasks for toileting routine including transition to edge ofbed with CGA in prep for BSC transfer. Pt with goals to trial sliding board transfer EOB>BSC, however once initated, pt endorses onset of dizziness prompting return to supine for safety. Household/ Community Re-entry Patient was challenged to complete transition to EOB and activity completion while seated upright at EOB in order to assess functional endurance, tolerance to upright position, andto prepare for upright ADLs. Cues provided to encourage movement of BLEs towards EOB and for contralateral reach to bed rail, pt completes task with CGA, increased time and effort for completion. Thept was additionally challenged to complete sit>stand attempts in prep for ADL transfers. Pt provided with MAX A x2, however unable to clear buttocks from bed surface while maintaining RLE NWB status. Deferred further standing attempts due to inability to maintain WB status. FUNCTIONAL MOBILITY Level of Dundy Physical/Non-physical Assist Adaptive Equipment Utilized Scooting/ Bridging Stand-by assist Verbal Cues Overhead trapeze Supine to Sit Contact guard Set-up required, Verbal Cues, Minimal cues Overhead trapeze Sit to Supine Minimum assist (75% patient's effort) Set-up required, Verbal Cues, Minimal cues Bed rails, Overhead trapeze Sit to Stand (Pt attempted with use of bariatric RW; however, unsuccessful 2/2 inability to maintain weightbearing restrictions RLE.) Bed to Chair (attempted sliding board transfer; however, once intiated, pt requested to return to bed due to dizziness.) DME: Sliding board BALANCE Postural Appearance Posture: Within Functional Limits Level of Dundy Balance Support Static Sit Standby assist Feet supported Dynamic Sit Standby assisst Feet supported THERAPEUTIC EXERCISE INTERVENTIONS (10 minutes) Treatment Details The patient was educated re: implementation of BUE HEP in order to target muscle groups necessary for functional mobility and ADL independence. HEP printed and each exercise reviewed, pt verbalized understanding. [email or web address] Access Details (if appropriate) Access Code: [email or web address] URL: [email or web address] Date: 05/07/25 Exercises Included - Seated Elbow Flexion with Self-Anchored Resistance - 1 x daily - 7 x weekly - 3 sets - 10 reps - Seated Elbow Extension with Self-Anchored Resistance - 1 x daily - 7 x weekly - 3 sets - 10 reps - Seated Shoulder Horizontal Abduction with Resistance - 1 x daily - 7 x weekly - 3 sets - 10 reps - Seated Shoulder Flexion with Self-Anchored Resistance - 1 x daily - 7 x weekly - 3 sets - 10 reps - SEATED Alternating Punch with Resistance - 1 x daily - 7 x weekly - 3 sets - 10 reps ASSESSMENT The patient is a 49yo M, seen today for OT treatment. The patient was admitted due to right diabetic foot ulcer. The patient tolerated OT treatment fairly, with full participation limited by onset ofdizziness. The patient continues to perform below functional baseline, with independence mainly limited by deficits in endurance, balance, sitting/standing tolerance, and strength. Compared to functional baseline, patient now requires increased assist for all BADLs, IADLs, and functional mobility. Due to deficits, continued skilled OT warranted for maximized independence and participation in valued occupations, and to optimize safety with return to routines. Recommend discharge to acute rehab for optimal progression towards therapy goals. If the patient were to return home without acute rehab stay, the patient would be at increased risk of fall(s), injury, and hospital readmission. OT anticipates the patient would benefit more greatly from acute rehab than other rehab services for the following reasons: The patient requires intensive and active therapeutic interventions of at least 2 disciplines (OT+PT), The patient will be able to tolerate 3 hoursof therapy of 5 days/wk (or 15hrs over 7 days/week), The patient's medical and rehab needs cannot be met at a lower level of care such as subacute rehab or home health, and PRIOR to hospitalization, pt was a community ambulator with independence, completed all BADLs with light family assist, and IADLs with family assist. CURRENTLY patient requiring CGA-MIN assist for all bed mobility, MAX-DEP assist for functional ADL transfers of less than a household distance, SBA-MIN assist with upper body ADLs, and MOD-MAX assist for all lower body ADLs. This indicates that the patient would benefit significantly from intensive rehab, in order to improve functional capacity within a reasonable period. OT RECOMMENDATIONS Discharge Destination Acute rehab Discharge Equipment Defer to facility PLAN Continue with established OT plan of care 2 - 5 times per week to progress towards OT goals. OT GOALS OT GOAL DETAILS Goal Established Date Time Frame Goal Status OT Goal 1: Pt will complete sit <> stand and BSC transfers with SBA using AE PRN and maintaining NWB RLE status 04/28/25 2 weeks OT Goal 2: Pt will complete lower body dressing independently 04/28/25 2 weeks OT Goal 3: Pt will verbalize/demonstrate independence with UE HEP to facilitate increased strength and endurance for engaging in functional tasks 04/28/25 2 weeks Written by Asiya Daniels on 05/07/25 at 2:49 PM. * Care Plan - Iveth Boss RN - 05/07/2025 11:19 AM EDT Problem: Skin Injury Risk Increased Goal: Skin Health and Integrity Outcome: Ongoing, Progressing Problem: Adult Inpatient Plan of Care Goal: Plan of Care Review Outcome: Ongoing, Progressing Flowsheets (Taken 05/06/20251999 by Judd Zavaleta, LOLA) Progress: improving Plan of Care Reviewed With: patient Goal: Patient-Specific Goal (Individualized) Outcome: Ongoing, Progressing Flowsheets (Taken 05/07/2025 0800) Patient/Family-Specific Goals (Include Timeframe): Pt will participate in his ADLs as much as possible Pt will maximize his time with physical therapy Pt will have no S/S infection Pt will verbalize understanding of his POC Individualized Care Needs: increase mobility and independence Anxieties, Fears or Concerns: I'm doing good this morning would like some more ice please Goal: Absence of Hospital-Acquired Illness or Injury Outcome: Ongoing, Progressing Goal: Optimal Comfort and Wellbeing Outcome: Ongoing, Progressing Problem: Fall Injury Risk Goal: Absence of Fall and Fall-Related Injury Outcome: Ongoing, Progressing Problem: Infection Goal: Absence of Infection Signs and Symptoms Outcome: Ongoing, Progressing Problem: Mobility Impairment Goal: Optimal Mobility Outcome: Ongoing, Progressing Problem: Mobility Impairment Goal: Optimal Mobility Outcome: Ongoing, Progressing Problem: Diabetes Goal: Optimal Coping Outcome: Ongoing, Progressing Goal: Optimal Functional Ability Outcome: Ongoing, Progressing Goal: Blood Glucose Level Within Target Range Outcome: Ongoing, Progressing Goal: Minimize Hypoglycemia Risk Outcome: Ongoing, Progressing Problem: Comorbidity Management Goal: Maintenance of Asthma Control Outcome: Ongoing, Progressing Goal: Maintenance of Behavioral Health Symptom Control Outcome: Ongoing, Progressing Goal: Maintenance of COPD Symptom Control Outcome: Ongoing, Progressing Goal: Blood Glucose Level Within Target Range Outcome: Ongoing, Progressing Goal: Maintenance of Heart Failure Symptom Control Outcome: Ongoing, Progressing Goal: Blood Pressure in Desired Range Outcome: Ongoing, Progressing Goal: Maintenance of Osteoarthritis Symptom Control Outcome: Ongoing, Progressing Goal: Bariatric Home Regimen Maintained Outcome: Ongoing, Progressing Goal: Maintenance of Seizure Control Outcome: Ongoing, Progressing Problem: Wound Goal: Optimal Coping Outcome: Ongoing, Progressing Goal: Optimal Pain Control and Function Outcome: Ongoing, Progressing Goal: Optimal Wound Healing Outcome: Ongoing, Progressing Intervention: Promote Wound Healing Flowsheets (Taken 05/07/2025 1112) Sleep/Rest Enhancement: consistent schedule promoted natural light exposure provided noise level reduced relaxation techniques promoted Problem: Pain Acute Goal: Optimal Pain Control and Function Outcome: Ongoing, Progressing * Progress Notes - Diane Guzman MD - 05/07/2025 8:37 AM EDT Subjective No complaints this morning. Good visit with daughter yesterday and Mom is here today. She wonders about therapy with not being able to bear weight Review of Systemsper HPI Objective Vitals Temp: [36.4 ??C (97.6 ??F)-36.7 ??C (98.1 ??F)] 36.4 ??C (97.6 ??F) Heart Rate: [62-71] 71 Resp: [14-16] 16 BP: (142-168)/(67-86) 142/83 Physical Exam Vitals reviewed. Constitutional: Appearance: Normal appearance. He is obese. HENT: Head: Normocephalic and atraumatic. Nose: Nose normal. Eyes: Extraocular Movements: Extraocular movements intact. Cardiovascular: Rate and Rhythm: Normal rate. Pulmonary: Effort: Pulmonary effort is normal. Abdominal: General: Abdomen is flat. Musculoskeletal: General: Normal range of motion. Cervical back: Normal range of motion. Comments: R 5th metatarsal absent with wound vac on lateral and plantar foot Skin: General: Skin is warm. Neurological: General: No focal deficit present. Mental Status: He is alert and oriented to person, place, and time. Psychiatric: Mood and Affect: Mood normal. Behavior: Behavior normal. 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 49 yo gentleman with obesity and T2DM admitted for R diabetic foot ulcer with osteomyelitis now s/pR 5th metatarsal amputation on 05/01 with ID and vascular following whose surgical pathology is negative for OM off antibiotics now awaiting placement at acute rehab #Diabetic foot ulcer with 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 - P/w worsening wound R foot found to have elevated inflammatory markers and CT showing possible OMunable to do MRI 08/14 weight - Consults: vascular, ID - S/p amputation 05/01 - Wound vac placed 05/03 - Surgical pathology negative for OM as of 05/06 - Adult ID screening labs, needs hep B vaccine Plan: - Wound vac changes every 2 days - NWB until vascular surgery follow-up in 1 month at least, scheduled for 05/30 #DM #Poorly controlled #Hyperglycemia - Home regimen 200 BID - BG ranges 300s - Hospital regimen NPH 80 BID, NPH 25 daily, 48 TID, 18 BID PRN - Endocrine following, appreciate recs. Transitioning to U500 based on poor glycemic control and wound healing while inpatient #Urinary retention s/p barber - HX several months worsening progressive urinary retention since was hospitalized for abdominal infection which has been following with urology outpatient at [facility]. They have postulated this to be related to his diabetes and have had several voiding trials which have failed. Also has un dergone proctoscopy (?) which was normal. 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 and he were hoping to get a second opinion while here at - PSA WNL 05/06 - Barber care per protocol - Continue home flomax - Continue finasteride, started 05/06 - Urology Thursday #Chronic CHRF-home 2L HTN-BB AF-AC, dilt HF-bumex, gracie HLD-statin COPD-inhalers A/D-vraylar, lorazepam, venlafaxine Insomnia-trazadone GERD--PPI QUINN-?CPAP Obesity-complicates care Diet-carb 1 DVT PPX AC FULL CODE Medically Ready for Discharge:Ready now * Progress Notes - Aileen Leonardo, FITTING ROOM OPERATOR - 05/07/2025 7:33 AM EDT Endocrine - Diabetes Consult follow-up: Subjective: 24 hour update: -plans to discharge to rehab sometime this coming week - need to check with [facility] to see ifthey are okay with utilizing U500 insulin if patient is able to bring in his own supply -continues with hyperglycemia -BG 407 overnight even with the use of snack dosing and adjustments to insulin regimen -assisted patient with downloading dexcom G7 pooja on new phone. Dicussed calibrating dexcom with fingerstick readings since he reports readings have not been accurate. Changed out sensor yesterday -pre lunch glucose 350 -discussed the potential of utilizing U500 insulin with pharmacy team. -patient reports that once the new year hits, he worries about the cost of U500 insulin I have reviewed the patient's blood glucose levels, labs, vitals, and insulin doses administered inthe electronic medical record. Review of Systems Constitutional: Positive for activity change. Negative for appetite change. HENT: Negative for trouble swallowing. Respiratory: Negative for shortness of breath. Sleep apnea Cardiovascular: Negative for chest pain. Hx of heart failure Gastrointestinal: Positive for constipation. Negative for abdominal pain and nausea. Endocrine: See 24 hour update Wearing CGM Genitourinary: Barber in place Skin: Positive for wound (bilateral lower extremities). Psychiatric/Behavioral: Positive for sleep disturbance. Negative for agitation and confusion. Objective: Physical Exam Constitutional: General: He is not in acute distress. Appearance: He is obese. He is ill-appearing. HENT: Head: Normocephalic and atraumatic. Mouth/Throat: Mouth: Mucous membranes are moist. Eyes: Pupils: Pupils are equal, round, and reactive to light. Cardiovascular: Rate and Rhythm: Normal rate. Pulmonary: Effort: Pulmonary effort is normal. No respiratory distress. Comments: Nasal cannula Genitourinary: Comments: Barber Musculoskeletal: General: No swelling. Skin: General: Skin is warm and dry. Findings: Lesion (bilateral lower extremities; new right toe amputation) present. Neurological: Mental Status: He is alert and oriented to person, place, and time. Mental status is at baseline. Psychiatric: Mood and Affect: Mood normal. Thought Content: Thought content normal. Judgment: Judgment normal. BP (!) 149/84 (BP Location: Right arm, Patient Position: Lying) Pulse 74 Temp 36.7 ??C (98 ??F)(Oral) Resp 18 Ht 1.829 m (6') Wt (!) 245 kg (540 lb 2 oz) BMI 73.25 kg/m?? Medications: Current Scheduled Medications[1] Current Continuous Medications[2] Current PRN Medications[3] Diet Dietary Orders (From admission, onward) Start Ordered 05/02/25 1413 Adult diet Diet texture: Regular; Carbohydrate restriction: Consistent Carb 2 (80 gm max/meal); Sodium restriction: 2,000 mg Na Diet effective now References: IDDSI Diet Texture Guide Question Answer Comment Diet texture Regular Carbohydrate restriction: Consistent Carb 2 (80 gm max/meal) Sodium restriction: 2,000 mg Na 05/02/25 1413 Lab Review: Results from last 7 days Lab Units 05/03/25 1822 SODIUM mmol/L 133* POTASSIUM mmol/L 3.6 CHLORIDE mmol/L 87* CO2 mmol/L 37* BUN mg/dL 14 CREATININE mg/dL 0.71 EGFR mL/min/1.73m*2 113.9 GLUCOSE mg/dL 290* CALCIUM mg/dL 9.4 Results from last 7 days Lab Units 05/03/25 0316 WBC 10*3/uL 6.86 HEMOGLOBIN g/dL 8.9* HEMATOCRIT % 29.2* PLATELETS 10*3/uL 202 Lab Results Component Value Date GLUCOSE 290 (H) 05/03/2025 GLUCOSE 399 (H) 05/03/2025 GLUCOSE 358 (H) 05/02/2025 PGLU 350 (H) 05/07/2025 PGLU 356 (H) 05/07/2025 PGLU 407 (H) 05/07/2025 PGLU 324 (H) 05/06/2025 PGLU 212 (H) 05/06/2025 PGLU 337 (H) 05/06/2025 PGLU 348 (H) 05/06/2025 PGLU 364 (H) 05/06/2025 I reviewed bg tracing in epic glucose timeline 05/07/25 ASSESSMENT Hospital Course: Gonzalo Smalls is a 49 y.o. male with hx of CHF, HTN, HLD, a.fib, type 2 DM [on U500 insulin], COPD, QUINN on nightly oxygen, recurrent UTIs, BPH, morbid obesity, and anxiety/depression. Patient presented to ED for evaluation of worsening right diabetic foot ulcer. Mr. Smalls presented to an OSH and Podiatry they are recommended to coming to for evaluation due to his size and delayed abilityto get him in the OR. Of note, Mr. Smalls is receiving enteral panel for recurrent UTI and has a chronic Barber. Per chart review it appears that the kidney infection is for ESBL E coli. ED lab work was significant for leukocytosis, anemia, hyperglycemia, hypokalemia, hypomagnesemia, elevated CRP and sed rate. 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 Hospital medicine was consulted for admission. Endocrine Diabetes team was consulted for glycemic management on 04/28/25. Patient on U500 insulin dosing at home. Daily Glucose and Insulin Total Daily Dose -consulted 04/28 AM BG 199 -04/30: 173-226, TDD 114 units -05/01: 222-316, TDD 133 units -05/02: 250-358, TDD 180 units -05/03: 258-372, TDD 220 units - 05/04: 236-335, TDD 226 units -05/05: 290-371, TDD 286 units -05/06: 212-364, TDD 344 units -A1c: Lab Results Component Value Date HGBA1C 8.9 (H) 04/29/2025 -Diet: regular CC2 [80 g/meal] -Steroids: none Diagnoses #diabetic foot ulcer -OR 05/01 for right 4th and 5th toe amputation #UTI -barber in place #obesity -BMI 81.99 -complicates all aspects of care - contributes to insulin resistance #diabetes mellitus - type 2 -Home medications: CGM: DexVasSol G7 Insulin regimen: U500 insulin: prescription for 225 units BID patient reports taking 200 units BID --> first dispensed 03/24/2025 - last dispensed 04/24/2025. insulin pen Reports being on U500 insulin for about 1 month and glycemic control has significantly improved Non insulin diabetes medications: Ozempic - recently started increased dose 0.5 mg this past week Metformin 100 mg BID Failed/Discontinued meds: Glargine: last dispensed 04/17/2025 Novolog mix last dispensed 02/22/2025 Jardiance Did not tolerate Mounjaro due to GI issues, constipation -see inpatient diabetes plan of care below PLAN: Primary team requesting recommendations and orders -working with pharmacy to see about U500 dosing - recommend starting with 180- 200 units U500 BID. -discussed with endocrine attending - Dr. Gao in agreement -After review of glucose trends and insulin delivery over the last 24 hours, titration of intensiveinsulin therapy was made to overall improve glycemic control and improve patient outcomes Current Hospital Regimen: Insulin regimen: Basal: 75 units , NPH, BID, increased to 80 units PLUS 20 units in the afternoon, increased to 25 units Bolus: 44 units lispro to cover meals, increased to 48 units -Give 1/2 dose if eating 25-50% of meal -HOLD if patient NPO or if patient eats less than 25% of meal -Please document % of meal consumed in intake and output flowsheet. NOTE: Snack dose: 12 units lispro PRN for overnight snacking, increased to 18 units Correction: very resistant dosing 3:50>150 lispro at mealtimes; 1;50>250 lispro bedtime, 3am PRN -Continue intensive glucose monitoring due to increased risk for hyper/hypoglycemia secondary to insulin therapy -Will continue to assess blood glucose trends and adjust basal/bolus insulin therapy dose according -fsbg ac/hs when eating, q6h when NPO, on TF/TPN -correction insulin to be given for hyperglycemia, do not hold correction if patient does not eat. -hypoglycemia protocol in place -Please document the percentage of meals consumed in intake and output flowsheet. -please notify us when diet orders change or steroids added as this impacts our tx NOTE: -Patient utilizes U500 insulin pen at home. With the U500 pen, a conversion is not needed. Typically patient's required a 70% reduction in home U500 dosing. 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 - Anette Kendall -Tentative discharge recommendations: NOTE: -patient reports that once the new year hits, he worries about the cost of U500 insulin -patient with plans to discharge to [facility] once able - need to check with [facility] to see if they are okay with utilizing U500 insulin if patient is able to bring in his own supply Insulin regimen - would like patient to utilize U500 home dosing at [facility] Continue Dexcom G7 CGM Likely continue Ozempic Likely continue metformin May substitute for therapeutic equivalent per insurance and retail PharmD approval -Supplies/scripts needed: Ensure patient has working glucose meter and supplies as back-up to CGM DM/Endo team will continue to follow. Please notify us as patient nears discharge for final recommendations Please contact Aileen Leonardo APRN [place] Adult Inpatient Diabetes team via secure chat orpage us at [phone] during 7a-7p, Thursday-Thursday. For after hours please contact the on-call Endocrine Fellow. Thank you for the opportunity to participate in this patient's care. - Reviewed notes by primary team and consulting services to determine appropriate plan of care as in the note. - Discussed plan and management with endocrine attending, patient, and primary team Time Spent: I personally spent a total of 35 minutes on this encounter. This time includes face to face with patient, counseling and discussion and/or coordination of care. [1] atorvastatin, 40 mg, Oral, Nightly bisoprolol, 10 mg, Oral, BID bumetanide, 4 mg, Oral, TID cariprazine, 3 mg, Oral, Daily dilTIAZem CD, 120 mg, Oral, Daily finasteride, 5 mg, Oral, Daily fluticasone, 2 spray, Each Nostril, Daily gabapentin, 600 mg, Oral, TID insulin lispro, 0-15 Units, Subcutaneous, TID with meals insulin lispro, 0-3 Units, Subcutaneous, Twice at night Insulin Lispro, 48 Units, Subcutaneous, TID with meals insulin NPH (Isophane), 25 Units, Subcutaneous, Daily insulin NPH (Isophane), 80 Units, Subcutaneous, BID Kyree, 1 packet, Oral, BID magnesium oxide, 800 mg, Oral, Daily miconazole, , Topical, BID pantoprazole, 40 mg, Oral, Daily before breakfast polyethylene glycol, 17 g, Oral, Daily rivaroxaban, 20 mg, Oral, Daily with dinner sodium chloride, 10 mL, Intravenous, q12h spironolactone, 100 mg, Oral, Daily tamsulosin, 0.4 mg, Oral, Daily traZODone, 100 mg, Oral, Nightly venlafaxine XR, 150 mg, Oral, Daily [2] [3] PRN medications: acetaminophen, albuterol, glucose OR dextrose 10 % OR dextrose 10 % OR glucagon (human recombinant), guaiFENesin, Insulin Lispro, ipratropium-albuterol, LORazepam, oxyCODONE, sodium chloride, Insert peripheral IV AND Saline lock IV AND sodium chloride AND sodium chloride * Care Plan - Judd Zavaleta RN - 05/06/2025 11:12 PM EDT Problem: Skin Injury Risk Increased Goal: Skin Health and Integrity Outcome: Ongoing, Progressing Problem: Adult Inpatient Plan of Care Goal: Plan of Care Review Outcome: Ongoing, Progressing Flowsheets (Taken 05/06/20251999) Progress: improving Plan of Care Reviewed With: patient Goal: Patient-Specific Goal (Individualized) Outcome: Ongoing, Progressing Goal: Absence of Hospital-Acquired Illness or Injury Outcome: Ongoing, Progressing Goal: Optimal Comfort and Wellbeing Outcome: Ongoing, Progressing Problem: Fall Injury Risk Goal: Absence of Fall and Fall-Related Injury Outcome: Ongoing, Progressing Problem: Infection Goal: Absence of Infection Signs and Symptoms Outcome: Ongoing, Progressing Problem: Mobility Impairment Goal: Optimal Mobility Outcome: Ongoing, Progressing Problem: Mobility Impairment Goal: Optimal Mobility Outcome: Ongoing, Progressing Problem: Diabetes Goal: Optimal Coping Outcome: Ongoing, Progressing Goal: Optimal Functional Ability Outcome: Ongoing, Progressing Goal: Blood Glucose Level Within Target Range Outcome: Ongoing, Progressing Goal: Minimize Hypoglycemia Risk Outcome: Ongoing, Progressing Problem: Comorbidity Management Goal: Maintenance of Asthma Control Outcome: Ongoing, Progressing Goal: Maintenance of Behavioral Health Symptom Control Outcome: Ongoing, Progressing Goal: Maintenance of COPD Symptom Control Outcome: Ongoing, Progressing Goal: Blood Glucose Level Within Target Range Outcome: Ongoing, Progressing Goal: Maintenance of Heart Failure Symptom Control Outcome: Ongoing, Progressing Goal: Blood Pressure in Desired Range Outcome: Ongoing, Progressing Goal: Maintenance of Osteoarthritis Symptom Control Outcome: Ongoing, Progressing Goal: Bariatric Home Regimen Maintained Outcome: Ongoing, Progressing Goal: Maintenance of Seizure Control Outcome: Ongoing, Progressing Problem: Wound Goal: Optimal Coping Outcome: Ongoing, Progressing Goal: Optimal Pain Control and Function Outcome: Ongoing, Progressing Goal: Optimal Wound Healing Outcome: Ongoing, Progressing * Care Plan - Jennifer Saldana - 05/06/2025 2:17 PM EDT Problem: Skin Injury Risk Increased Goal: Skin Health and Integrity Outcome: Ongoing, Progressing Problem: Adult Inpatient Plan of Care Goal: Plan of Care Review Outcome: Ongoing, Progressing Flowsheets (Taken 05/06/2025 1416) Progress: improving Outcome Evaluation: pt agreeable to plan of care Plan of Care Reviewed With: patient Goal: Patient-Specific Goal (Individualized) Outcome: Ongoing, Progressing Flowsheets (Taken 05/05/20251999 by Judd Zavaleta, LOLA) Patient/Family-Specific Goals (Include Timeframe): Pt will remain free of fall in this shift Individualized Care Needs: Safety Anxieties, Fears or Concerns: none Goal: Absence of Hospital-Acquired Illness or Injury Outcome: Ongoing, Progressing Goal: Optimal Comfort and Wellbeing Outcome: Ongoing, Progressing Problem: Fall Injury Risk Goal: Absence of Fall and Fall-Related Injury Outcome: Ongoing, Progressing Problem: Infection Goal: Absence of Infection Signs and Symptoms Outcome: Ongoing, Progressing Problem: Mobility Impairment Goal: Optimal Mobility Outcome: Ongoing, Progressing Problem: Mobility Impairment Goal: Optimal Mobility Outcome: Ongoing, Progressing Problem: Diabetes Goal: Optimal Coping Outcome: Ongoing, Progressing Goal: Optimal Functional Ability Outcome: Ongoing, Progressing Goal: Blood Glucose Level Within Target Range Outcome: Ongoing, Progressing Goal: Minimize Hypoglycemia Risk Outcome: Ongoing, Progressing Problem: Comorbidity Management Goal: Maintenance of Asthma Control Outcome: Ongoing, Progressing Goal: Maintenance of Behavioral Health Symptom Control Outcome: Ongoing, Progressing Goal: Maintenance of COPD Symptom Control Outcome: Ongoing, Progressing Goal: Blood Glucose Level Within Target Range Outcome: Ongoing, Progressing Goal: Maintenance of Heart Failure Symptom Control Outcome: Ongoing, Progressing Goal: Blood Pressure in Desired Range Outcome: Ongoing, Progressing Goal: Maintenance of Osteoarthritis Symptom Control Outcome: Ongoing, Progressing Goal: Bariatric Home Regimen Maintained Outcome: Ongoing, Progressing Goal: Maintenance of Seizure Control Outcome: Ongoing, Progressing Problem: Wound Goal: Optimal Coping Outcome: Ongoing, Progressing Goal: Optimal Pain Control and Function Outcome: Ongoing, Progressing Goal: Optimal Wound Healing Outcome: Ongoing, Progressing Intervention: Promote Wound Healing Flowsheets (Taken 05/05/20251999 by Judd Zavaleta RN) Sleep/Rest Enhancement: awakenings minimized noise level reduced regular sleep/rest pattern promoted relaxation techniques promoted room darkened Problem: Pain Acute Goal: Optimal Pain Control and Function Outcome: Ongoing, Progressing * Progress Notes - Diane Guzman MD - 05/06/2025 7:57 AM EDT Subjective and daughter at bedside this AM. Interested in hearing about when he can bear weight on his foot as it will change what going home looks like Review of Systemsper HPI Objective Vitals Temp: [36.6 ??C (97.8 ??F)-36.8 ??C (98.3 ??F)] 36.6 ??C (97.8 ??F) Heart Rate: [64-75] 68 Resp: [16-18] 16 BP: (127-159)/(67-77) 127/73 Physical Exam Vitals reviewed. Constitutional: Appearance: Normal appearance. He is obese. HENT: Head: Normocephalic and atraumatic. Nose: Nose normal. Eyes: Extraocular Movements: Extraocular movements intact. Cardiovascular: Rate and Rhythm: Normal rate. Pulmonary: Effort: Pulmonary effort is normal. Abdominal: General: Abdomen is flat. Musculoskeletal: General: Normal range of motion. Cervical back: Normal range of motion. Comments: R 5th metatarsal absent with wound vac on lateral and plantar foot Skin: General: Skin is warm. Neurological: General: No focal deficit present. Mental Status: He is alert and oriented to person, place, and time. Psychiatric: Mood and Affect: Mood normal. Behavior: Behavior normal. 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 49 yo gentleman with obesity and T2DM admitted for R diabetic foot ulcer with osteomyelitis now s/pR 5th metatarsal amputation on 05/01 with ID and vascular following whose surgical pathology is negative for OM such that antibiotics can be discontinued per ID now awaiting placement at acute rehab #Diabetic foot ulcer with 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 - P/w worsening wound R foot found to have elevated inflammatory markers and CT showing possible OMunable to do MRI 08/14 weight - Consults: vascular, ID - S/p amputation 05/01 - Wound vac placed 05/03 - Surgical pathology negative for OM as of 05/06 - Adult ID screening labs, needs hep B vaccine Plan: - Wound vac changes every 2 days - NWB until vascular surgery follow-up in 1 month at least, scheduled for 05/30 #DM #Poorly controlled #Hyperglycemia - Home regimen 200 BID - BG ranges 300s - Hospital regimen NPH 75 BID, NPH 25 daily, 44 TID, 12 BID PRN - Endocrine following, appreciate recs #Urinary retention s/p barber - HX several months worsening progressive urinary retention since was hospitalized for abdominal infection which has been following with urology outpatient at [facility]. They have postulated this to be related to his diabetes and have had several voiding trials which have failed. Also has un dergone proctoscopy (?) which was normal. 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 and he were hoping to get a second opinion while here at - Barber care per protocol - Continue home flomax - Add finasteride - Urology Thursday #Chronic CHRF-home 2L HTN-BB AF-AC, dilt HF-bumex, gracie HLD-statin COPD-inhalers A/D-vraylar, lorazepam, venlafaxine Insomnia-trazadone GERD--PPI QUINN-?CPAP Obesity-complicates care Diet-carb 1 DVT PPX AC FULL CODE Medically Ready for Discharge:Ready now * Progress Notes - Aileen Leonardo, FITTING ROOM OPERATOR - 05/06/2025 7:46 AM EDT Endocrine - Diabetes Consult follow-up: Subjective: 24 hour update: -patient discharging to [facility] around Thursday or Thursday - need to check with [facility] to see if they are okay with utilizing U500 insulin if patient is able to bring in his own supply -continues with hyperglycemia - insulin regiment adjusted 05/05 -AM BG 348 -patient snacking overnight on beef jerky and peanut butter crackers -discussed PRN nightly snack dosing -good PO intake -insulin regimen adjusted - added afternoon NPH dose -discussed the potential of utilizing U500 insulin with pharmacy team I have reviewed the patient's blood glucose levels, labs, vitals, and insulin doses administered inthe electronic medical record. Review of Systems Constitutional: Positive for activity change. Negative for appetite change. HENT: Negative for trouble swallowing. Respiratory: Negative for shortness of breath. Sleep apnea Cardiovascular: Negative for chest pain. Hx of heart failure Gastrointestinal: Positive for constipation. Negative for abdominal pain and nausea. Endocrine: See 24 hour update Wearing CGM Genitourinary: Barber in place Skin: Positive for wound (bilateral lower extremities). Psychiatric/Behavioral: Positive for sleep disturbance. Negative for agitation and confusion. Objective: Physical Exam Constitutional: General: He is not in acute distress. Appearance: He is obese. He is ill-appearing. HENT: Head: Normocephalic and atraumatic. Mouth/Throat: Mouth: Mucous membranes are moist. Eyes: Pupils: Pupils are equal, round, and reactive to light. Cardiovascular: Rate and Rhythm: Normal rate. Pulmonary: Effort: Pulmonary effort is normal. No respiratory distress. Comments: Nasal cannula Genitourinary: Comments: Barber Musculoskeletal: General: No swelling. Skin: General: Skin is warm and dry. Findings: Lesion (bilateral lower extremities; new right toe amputation) present. Neurological: Mental Status: He is alert and oriented to person, place, and time. Mental status is at baseline. Psychiatric: Mood and Affect: Mood normal. Thought Content: Thought content normal. Judgment: Judgment normal. BP 127/73 (BP Location: Right arm, Patient Position: Lying) Pulse 68 Temp 36.6 ??C (97.8 ??F) (Oral) Resp 16 Ht 1.829 m (6') Wt (!) 248 kg (546 lb 11.9 oz) BMI 74.15 kg/m?? Medications: Current Scheduled Medications[1] Current Continuous Medications[2] Current PRN Medications[3] Diet Dietary Orders (From admission, onward) Start Ordered 05/02/25 1413 Adult diet Diet texture: Regular; Carbohydrate restriction: Consistent Carb 2 (80 gm max/meal); Sodium restriction: 2,000 mg Na Diet effective now References: IDDSI Diet Texture Guide Question Answer Comment Diet texture Regular Carbohydrate restriction: Consistent Carb 2 (80 gm max/meal) Sodium restriction: 2,000 mg Na 05/02/25 1413 Lab Review: Results from last 7 days Lab Units 05/03/25 1822 SODIUM mmol/L 133* POTASSIUM mmol/L 3.6 CHLORIDE mmol/L 87* CO2 mmol/L 37* BUN mg/dL 14 CREATININE mg/dL 0.71 EGFR mL/min/1.73m*2 113.9 GLUCOSE mg/dL 290* CALCIUM mg/dL 9.4 Results from last 7 days Lab Units 05/03/25 0316 WBC 10*3/uL 6.86 HEMOGLOBIN g/dL 8.9* HEMATOCRIT % 29.2* PLATELETS 10*3/uL 202 Lab Results Component Value Date GLUCOSE 290 (H) 05/03/2025 GLUCOSE 399 (H) 05/03/2025 GLUCOSE 358 (H) 05/02/2025 PGLU 364 (H) 05/06/2025 PGLU 324 (H) 05/05/2025 PGLU 371 (H) 05/05/2025 PGLU 292 (H) 05/05/2025 PGLU 290 (H) 05/05/2025 PGLU 236 (H) 05/04/2025 PGLU 233 (H) 05/04/2025 PGLU 271 (H) 05/04/2025 I reviewed bg tracing in [facility] glucose timeline 05/06/25 ASSESSMENT Hospital Course: Gonzalo Smalls is a 49 y.o. male with hx of CHF, HTN, HLD, a.fib, type 2 DM [on U500 insulin], COPD, QUINN on nightly oxygen, recurrent UTIs, BPH, morbid obesity, and anxiety/depression. Patient presented to ED for evaluation of worsening right diabetic foot ulcer. Mr. Smalls presented to an OSH and Podiatry they are recommended to coming to for evaluation due to his size and delayed abilityto get him in the OR. Of note, Mr. Smalls is receiving enteral panel for recurrent UTI and has a chronic Barber. Per chart review it appears that the kidney infection is for ESBL E coli. ED lab work was significant for leukocytosis, anemia, hyperglycemia, hypokalemia, hypomagnesemia, elevated CRP and sed rate. 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 Hospital medicine was consulted for admission. Endocrine Diabetes team was consulted for glycemic management on 04/28/25. Patient on U500 insulin dosing at home. Daily Glucose and Insulin Total Daily Dose -consulted 04/28 AM BG 199 -04/30: 173-226, TDD 114 units -05/01: 222-316, TDD 133 units -05/02: 250-358, TDD 180 units -05/03: 258-372, TDD 220 units - 05/04: 236-335, TDD 226 units -05/05: 290-371, TDD 286 units -A1c: Lab Results Component Value Date HGBA1C 8.9 (H) 04/29/2025 -Diet: regular CC2 [80 g/meal] -Steroids: none Diagnoses #diabetic foot ulcer -OR 05/01 for right 4th and 5th toe amputation #UTI -barber in place #obesity -BMI 81.99 -complicates all aspects of care - contributes to insulin resistance #diabetes mellitus - type 2 -Home medications: CGM: Dexcom G7 Insulin regimen: U500 insulin: prescription for 225 units BID patient reports taking 200 units BID --> first dispensed 03/24/2025 - last dispensed 04/24/2025. insulin pen Reports being on U500 insulin for about 1 month and glycemic control has significantly improved Non insulin diabetes medications: Ozempic - recently started increased dose 0.5 mg this past week Metformin 100 mg BID Failed/Discontinued meds: Glargine: last dispensed 04/17/2025 Novolog mix last dispensed 02/22/2025 Jardiance Did not tolerate Mounjaro due to GI issues, constipation -see inpatient diabetes plan of care below PLAN: Primary team requesting recommendations and orders -After review of glucose trends and insulin delivery over the last 24 hours, titration of intensiveinsulin therapy was made to overall improve glycemic control and improve patient outcomes Current Hospital Regimen: Insulin regimen: Basal: 70 units , NPH, BID, increased to 75 units and added 20 units NPH at lunchtime to make dosing TID Bolus: 44 units lispro to cover meals -Give 1/2 dose if eating 25-50% of meal -HOLD if patient NPO or if patient eats less than 25% of meal -Please document % of meal consumed in intake and output flowsheet. NOTE: Snack dose: 8 units lispro PRN for overnight snacking, increased to 12 units. Correction: very resistant dosing 3:50>150 lispro at mealtimes; 1;50>250 lispro bedtime, 3am PRN -Continue intensive glucose monitoring due to increased risk for hyper/hypoglycemia secondary to insulin therapy -Will continue to assess blood glucose trends and adjust basal/bolus insulin therapy dose according -fsbg ac/hs when eating, q6h when NPO, on TF/TPN -correction insulin to be given for hyperglycemia, do not hold correction if patient does not eat. -hypoglycemia protocol in place -Please document the percentage of meals consumed in intake and output flowsheet. -please notify us when diet orders change or steroids added as this impacts our tx NOTE: -Patient utilizes U500 insulin pen at home. With the U500 pen, a conversion is not needed. Typically patient's required a 70% reduction in home U500 dosing. 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 - Anette Kendall -Tentative discharge recommendations: -patient discharging to [facility] around Thursday or Thursday - need to check with [facility] to see if they are okay with utilizing U500 insulin if patient is able to bring in his own supply Insulin regimen - TBD Continue Dexcom G7 CGM Likely continue Ozempic Likely continue metformin May substitute for therapeutic equivalent per insurance and retail PharmD approval -Supplies/scripts needed: Ensure patient has working glucose meter and supplies as back-up to CGM DM/Endo team will continue to follow. Please notify us as patient nears discharge for final recommendations Please contact Aileen Leonardo APRN [place] Adult Inpatient Diabetes team via secure chat orpage us at [phone] during -7p, Thursday-Thursday. For after hours please contact the on-call Endocrine Fellow. Thank you for the opportunity to participate in this patient's care. - Reviewed notes by primary team and consulting services to determine appropriate plan of care as in the note. - Discussed plan and management with patient, bedside RN and primary team Time Spent: I personally spent a total of 30 minutes on this encounter. This time includes face to face with patient, counseling and discussion and/or coordination of care. [1] atorvastatin, 40 mg, Oral, Nightly bisoprolol, 5 mg, Oral, BID bumetanide, 4 mg, Oral, TID cariprazine, 3 mg, Oral, Daily dilTIAZem CD, 120 mg, Oral, Daily gabapentin, 600 mg, Oral, TID insulin lispro, 0-15 Units, Subcutaneous, TID with meals insulin lispro, 0-3 Units, Subcutaneous, Twice at night Insulin Lispro, 44 Units, Subcutaneous, TID with meals insulin NPH (Isophane), 70 Units, Subcutaneous, BID Kyree, 1 packet, Oral, BID magnesium oxide, 800 mg, Oral, Daily metroNIDAZOLE, 500 mg, Oral, q8h miconazole, , Topical, BID pantoprazole, 40 mg, Oral, Daily before breakfast polyethylene glycol, 17 g, Oral, Daily rivaroxaban, 20 mg, Oral, Daily with dinner sodium chloride, 10 mL, Intravenous, q12h spironolactone, 100 mg, Oral, Daily tamsulosin, 0.4 mg, Oral, Daily traZODone, 100 mg, Oral, Nightly venlafaxine XR, 150 mg, Oral, Daily [2] [3] PRN medications: acetaminophen, albuterol, glucose OR dextrose 10 % OR dextrose 10 % OR glucagon (human recombinant), guaiFENesin, Insulin Lispro, ipratropium-albuterol, LORazepam, oxyCODONE, Insert peripheral IV AND Saline lock IV AND sodium chloride AND sodium chloride * Care Plan - Judd Zavaleta RN - 05/05/2025 11:14 PM EDT Problem: Skin Injury Risk Increased Goal: Skin Health and Integrity Outcome: Ongoing, Progressing Problem: Adult Inpatient Plan of Care Goal: Plan of Care Review Outcome: Ongoing, Progressing Flowsheets (Taken 05/05/20251999) Progress: improving Plan of Care Reviewed With: patient Goal: Patient-Specific Goal (Individualized) Outcome: Ongoing, Progressing Goal: Absence of Hospital-Acquired Illness or Injury Outcome: Ongoing, Progressing Note: Pt is encouraged to use the IS Goal: Optimal Comfort and Wellbeing Outcome: Ongoing, Progressing Note: Encouraged the wt shifting Problem: Fall Injury Risk Goal: Absence of Fall and Fall-Related Injury Outcome: Ongoing, Progressing Note: Pt will has his bed alarm on, educated to use the call light for any help. Problem: Infection Goal: Absence of Infection Signs and Symptoms Outcome: Ongoing, Progressing Note: Pt is in abx, has his CHG and [place] wipes done in this shift Problem: Mobility Impairment Goal: Optimal Mobility Outcome: Ongoing, Progressing Note: Encourage the wt shifting and self care Problem: Mobility Impairment Goal: Optimal Mobility Outcome: Ongoing, Progressing Problem: Diabetes Goal: Optimal Coping Outcome: Ongoing, Progressing Goal: Optimal Functional Ability Outcome: Ongoing, Progressing Goal: Blood Glucose Level Within Target Range Outcome: Ongoing, Progressing Goal: Minimize Hypoglycemia Risk Outcome: Ongoing, Progressing Note: Monitor the BS Problem: Comorbidity Management Goal: Maintenance of Asthma Control Outcome: Ongoing, Progressing Note: Encouraged to use the IS Goal: Maintenance of Behavioral Health Symptom Control Outcome: Ongoing, Progressing Goal: Maintenance of COPD Symptom Control Outcome: Ongoing, Progressing Goal: Blood Glucose Level Within Target Range Outcome: Ongoing, Progressing Goal: Maintenance of Heart Failure Symptom Control Outcome: Ongoing, Progressing Goal: Blood Pressure in Desired Range Outcome: Ongoing, Progressing Goal: Maintenance of Osteoarthritis Symptom Control Outcome: Ongoing, Progressing Goal: Bariatric Home Regimen Maintained Outcome: Ongoing, Progressing Goal: Maintenance of Seizure Control Outcome: Ongoing, Progressing Note: Prn seizure med available Problem: Wound Goal: Optimal Coping Outcome: Ongoing, Progressing Goal: Optimal Pain Control and Function Outcome: Ongoing, Progressing Goal: Optimal Wound Healing Outcome: Ongoing, Progressing Intervention: Promote Wound Healing Flowsheets (Taken 05/05/20251999) Sleep/Rest Enhancement: awakenings minimized noise level reduced regular sleep/rest pattern promoted relaxation techniques promoted room darkened Problem: Pain Acute Goal: Optimal Pain Control and Function Outcome: Ongoing, Progressing * Progress Notes - Jeevan Shah RN - 05/05/2025 2:22 PM EDT Images from the original note were not included. Wound Care Consult Visit Date: 05/05/2025 Patient Name: Gonzalo Smalls Date of : 1975 Admit Date: 04/27/2025 Reason for Consult: IP Wound Orders (From admission, onward) Start Ordered 04/30/25 1437 Wound ostomy eval and treat 2 Wounds Associated Once Comments: Pictures available in chart Question: Instructions: Answer: Prior to sending evaluation & treat order, place wound/ostomy LDA, complete a wound/ostomy assessment, and consider taking a photograph to document. 04/30/25 1437 04/28/25 0703 Wound ostomy eval and treat Once Comments: Infectious Diabetic Foot Ulcer Clinical Pathway Patient Question: Reason for Consult? Answer: Infectious Diabetic Foot Ulcer Clinical Pathway Patient 04/28/25 0705 Wound History: dmitted 04/27/2025 for worsening right diabetic foot ulcer with osteomyelitis, now s/p right 5th toe amputation and ongoing management for severe hyperglycemia, infection, and wound care. 05/01/2025: Underwent right 5th toe ray amputation and foot debridement with vascular surgery; wound vac applied 05/03 by [facility] Wound Assessment: Wound 05/01/25 Surgical Toe (Comment which one) Anterior;Right (Active) Date First Assessed/Time First Assessed: 05/01/25 0805 Present on Original Admission: No Hand Hygiene Completed: Yes Primary Wound Type: Surgical Location: Toe (Comment which one) Wound Location Orientation: Anterior;Right Assessments 05/05/2025 11:44 AM Wound Image Wound Assessment [place];Red (moist , full thickness) Margins Well-defined edges Saba-Wound Assessment Intact Wound Length (cm) 10.5 cm Wound Width (cm) 6.5 cm Wound Surface Area (cm^2) 53.6 cm^2 Drainage Description Serosanguineous Drainage Amount Scant Treatments Cleansed;Saline Dressing Vacuum dressing Number of Packing Pieces Used 3 Dressing Changed (S) Changed Dressing Status Intact (trak pad pulled off) No associated orders. Wound Team Summary Assessment: approached by staff sec to wound vac on pt's right foot and Trak padhad been pulled off, no orders noted for wound vac, maessaged [facility] team for guidance. Orders placedfor nursing to change, assisted staff with wound vac change to right 5th toe amp incision. Details as above. 1 adaptic removed and 1 black foam, saba wound prepped with cavalon and drape, 1 adaptic applied with 2 black foam with good seal @ 125 Wound Team Plan: Wound care will follow up at regular intervals while inpatient; bedside nursing tofollow wound care recommendations as ordered and please re- consult sooner for new changes or concerns prior to follow up. Jeevan Shah RN CWOCN 05/05/2025 2:22 PM * Care Plan - Jeevan Shah RN - 05/05/2025 2:22 PM EDT Problem: Wound Goal: Optimal Wound Healing 05/05/2025 1422 by Jeevan Shah RN Outcome: Ongoing, Progressing 05/05/2025 1422 by Jeevan Shah RN Outcome: Ongoing, Progressing Intervention: Promote Wound Healing Note: See recs, wound vac in use Patient evaluated by [facility] nurse, individualized recommendations placed and care plan interventions updated; see wound care note for details regarding recommendations to support optimal wound healing. * Progress Notes - Mayra Apodaca RN - 05/05/2025 12:30 PM EDT Case Management Adult Progress Note Gonzalo Smalls 49 y.o. male CSN: [id number] Admission: 04/27/2025 9:29 PM Primary Problem: Diabetic foot ulcer Anticipated Discharge Date: TBD Has Discharge Plans Changed? No Medicare Second Notice: Greater than 2 days before discharge Medically Ready for Discharge: Anticipated in 5+ Days Additional Comments Patient admitted for worsening right diabetic foot ulcer. Vascular surgery consulted. Patient s/p debridement and toe amputation on 05/01. ID consulted. Endocrine following. Per MD patient is not medically ready for discharge. Patient s/p wound debridement and toe amputation on 05/01. Vascular placed wound vac on foot on 05/03. ID consulted for IV abx duration. Awaiting final recs. PT/OT recommend acute rehab. Patient agreeable to acute rehab. RNCM sent referral to [facility] on this date. RNCM will continue to monitor for further discharge needs. Mayra Apodaca RN * Progress Notes - Janelle Phan PA - 05/05/2025 11:08 AM EDT Images from the original note were not included. BONE & JOINT INFECTIOUS DISEASE PROGRESS NOTE 05/05/2025 SUBJECTIVE: Patient seen and evaluated this morning while resting in bed. He is doing well overall. Still has aslightly productive cough but feels like this is somewhat better and breathing is stable. He is tolerating antibiotics well. His pain in his foot remains well-controlled. Reviewed pathology is still pending at this time. All questions and concerns addressed with patient at bedside. Patient re-visited this afternoon following return of pathology report, family present at bedside. Reviewed margins were free of bony infection and recommendation to stop antibiotic therapy. Expressed need for continued wound care following discharge and need to monitor for wounds closely to which patient verbalized understanding. All questions and concerns addressed with patient and family at bedside. REVIEW OF SYSTEMS: Complete 14 point review of systems is negative except for positives documented in HPI/subjective MEDICATIONS: Current Medications[1] ALLERGIES: Allergies[2] PHYSICAL EXAM: GEN: Chronically ill-appearing, obese male, lying in bed in NAD SKIN: Stable appearance of right foot with wound VAC to right lateral foot, no surrounding erythema. Chronic BLE venous stasis changes. Skin is otherwise warm, well-perfused, no rashes or lesions on exposed skin. EYES: Sclera anicteric, EOMI HENT: NCAT, neck supple, full ROM, mmm CHEST: Atraumatic, symmetric chest rise HEART: Regular rate and rhythm, no appreciable murmur LUNGS: Breath sounds diminished but CTAB, unlabored on RA GI: Abdomen soft, non-tender, non-distended, bowel sounds in all quadrants : Barber in place with clear, yellow urine VASC: No cyanosis, chronic BLE edema, peripheral pulses 2+ MSK: Right foot as above, otherwise no obvious deformities NEURO: A&OX3, no acute focal neurological deficits noted PSYCH: Appropriate mood and affect VITAL SIGNS: Patient Vitals for the past 24 hrs: BP Temp Temp src Pulse Resp SpO2 Weight 05/05/25 1129 (!) 147/74 36.6 ??C (97.9 ??F) Oral 68 -- 96 % -- 05/05/25 0755 129/82 36.5 ??C (97.7 ??F) Oral 69 -- 96 % -- 05/05/25 0357 -- -- -- -- -- -- (!) 267 kg (587 lb 11.9 oz) 05/05/25 0354 (!) 150/70 36.6 ??C (97.9 ??F) -- 73 -- (!) 88 % -- 05/04/25 2354 128/78 36.6 ??C (97.8 ??F) -- 69 -- 97 % -- 05/04/25 1935 (!) 150/74 36.6 ??C (97.9 ??F) Oral 76 19 97 % -- 05/04/25 1544 (!) 143/77 -- -- 73 -- 97 % -- LABS: Labs in last 18 hours CBC WBC ?? Hb ?? Plt ?? Hct ?? ANC ?? INR ??, PTT ??, Anti-Xa ?? BMP Na ?? Cl ?? BUN ?? Glu ?? K ?? Co2 ?? Cr ?? Ca ?? iCa ?? Mg ??, Phos ?? Lactate ?? LFT AST ?? AlkPhos ?? T Prot ?? ALK ?? Bili ?? Alb ?? D.Bili ?? Lab Results Component Value Date CRP 82.6 (H) 04/27/2025 CRP 9.2 02/18/2019 Lab Results Component Value Date CK 54 05/03/2025 CK 50 05/02/2025 CK 60 05/01/2025 CK 71 04/27/2025 CK 107 02/18/2019 Patient records reviewed and pertinent findings outlined below. IMAGING/STUDIES: CT Foot Right w IV Contrast Result Date: 04/28/2025 Impression: Soft tissue defect along the dorsal lateral foot and open, comminuted fracture and irregularity of the fifth metatarsal head. These findings are compatible with osteomyelitis. No discreteabscess. Exam limited by positioning. XR Foot Right 3+ Views Result Date: 04/27/2025 Impression: Chronic ulcer in the lateral forefoot. There is adjacent osseous destruction and erosions at the fifth MTP suggestive of osteomyelitis. ANTIMICROBIAL REVIEW: PO Metronidazole 05/03/25 - Present IV Cefepime 05/03/25 - Present IV Daptomycin 04/28/25 - Present IV Meropenem 04/28/25 - 05/03/25 MICROBIOLOGY: 04/28/25 MDR swab No MDRO isolated 04/27/25 Blood culture NGTD [facility] Culture Data: - 04/25/25: Blood culture NGTD - 04/25/25 Urine culture >100k E. Coli >100k GNR PATHOLOGY: A. RIGHT FIFTH TOE, AMPUTATION: - PENDING DECAL SECTIONS, AMENDED REPORT TO FOLLOW. B. RIGHT FIFTH TOE MARGIN, RESECTION: - NO ACUTE OSTEOMYELITIS IDENTIFIED. ADULT ID SCREENING: - Hepatitis A - IgG Negative (05/03/25) --> Not immune - Hepatitis B - sAb Negative (05/03/25) --> Not immune - sAg Negative (05/03/25) - Total core Ab Negative (05/03/25) - Hepatitis C - Ab Negative (04/27/25) - HIV - Ab Non-reactive (04/27/25) ASSESSMENT: Gonzalo Smalls is a 49 y.o. male with a PMH of T2DM c/b peripheral neuropathy, HTN, HLD, Afib, on Xarelto, morbid obesity, and QUINN who presented to on for evaluation of a right diabetic foot ulcer. Initial labs significant for leukocytosis of 12,000 and CRP 82.6. X-ray imaging of the right foot showed a lateral forefoot chronic ulcer with 5th MTP bony erosion and destruction. CT of the right foot with IV contrast demonstrated a ulcer to the dorsal and lateral aspect of the right foot with an open and comminuted 5th metatarsal head fracture consistent with osteomyelitis. Given concern for bony infection, ID bone and joint was consulted on 04/28/25 for evaluation. He was started empirically on Daptomycin (due to Vancomycin infusion reaction) and Meropenem (givenrecent ESBL E. Coli UTI). He was evaluated by vascular surgery and taken to the OR on 05/01/25 where he underwent right 5th toe amputation with I&D. Unfortunately no cultures were obtained. He was narrowed to Vancomycin, Cefepime, and Flagyl on 05/03/25 while awaiting pathology results. Patient's pathology returned on 05/04/25 with bony margins negative for acute osteomyelitis. It was recommended that patient stop IV antibiotics given negative pathology. Patient is planned to discharge to [facility]. Recommend close follow-up with vascular surgery and wound care after discharge. 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 coli - Type 2 Diabetes Mellitus c/b Peripheral Neuropathy - Hemoglobin A1c 8.9% - Complicates wound healing and treatment of infection - Patient would benefit from tight glucose control - Obesity - Body mass index is 76.9 kg/m??. - Complicates all aspects of care - Afib on Xarelto, HTN, HLD, QUINN RECOMMENDATIONS: - Discontinue all antimicrobials, no need for further antibiotics at this time - Recommend close follow-up with Wound Care and Vascular surgery following discharge - Recommend outpatient follow-up for Hepatitis A and Hepatitis B immunization series - No indication for ID follow-up at this time - Plan of care and recommendations discussed with patient's primary provider Thank you for allowing us to participate in this patient's care. ID will sign off. Please contact [facility] service with questions or concerns prior to discharge. Janelle Phan PA-C Division of Infectious Diseases Available by [employer] History, assessment, and plan discussed with ID attending, Dr. Chintan Doran The following complex inpatient infectious disease services were performed today: Complex antimicrobial therapy counseling and treatment [1] Current Facility-Administered Medications Medication Dose Route Frequency Provider Last Rate Last Admin acetaminophen (Tylenol) tablet 1,000 mg 1,000 mg Oral q6h PRN Marjorie Myers MD 1,000 mg at 05/02/252057 albuterol 108 (90 Base) MCG/ACT inhaler 2 puff 2 puff Inhalation q4h PRN Marjorie Myers MD atorvastatin (Lipitor) tablet 40 mg 40 mg Oral Nightly Marjorie Myers MD 40 mg at 05/04/252016 bisoprolol (Zebeta) tablet 5 mg 5 mg Oral BID Marjorie Myers MD 5 mg at 05/05/25 09 bumetanide (Bumex) tablet 4 mg 4 mg Oral TID Marjorie Myers MD 4 mg at 05/05/25 0850 cariprazine (Vraylar) capsule 3 mg 3 mg Oral Daily Marjorie Myers MD 3 mg at 05/05/25 0906 glucose (Glutose) 40 % oral gel 15-30 grams of glucose 15-30 grams of glucose Sublingual q15 min PRN Marjorie Myers MD Or dextrose 10 % (D10W) bolus 125 mL 125 mL Intravenous q15 min PRN Marjorie Myers MD Or dextrose 10 % (D10W) bolus 250 mL 250 mL Intravenous q15 min PRN Marjorie Myers MD Or glucagon (human recombinant) injection 1 mg 1 mg Intramuscular q15 min PRN Marjorie Myers MD dilTIAZem CD (Cardizem CD) 24 hr capsule 120 mg 120 mg Oral Daily OMarjorie weaver MD 120 mg at 848 gabapentin (Neurontin) capsule 600 mg 600 mg Oral TID Marjorie Myers MD 600 mg at 05/05/25 0849 guaiFENesin (Mucinex) 12 hr tablet 600 mg 600 mg Oral BID PRN Diane Guzman MD 600 mg at 05/04/25 1625 insulin lispro (Admelog) 100 units/mL injection - Correction - Very Resistant Dose 0-15 Units Subcutaneous TID with meals Marjorie Myers MD 9 Units at 05/05/25 1236 insulin lispro (Admelog) injection - Correction - Nighttime Dose 0-3 Units Subcutaneous Twice at night Marjorie Myers MD 2 Units at 05/04/25 0448 Insulin Lispro (Admelog, HumaLOG) 100 UNIT/ML injection 44 Units 44 Units Subcutaneous TID with meals Martina Foote, [facility] Insulin Lispro (Admelog, HumaLOG) 100 UNIT/ML injection 8 Units 8 Units Subcutaneous BID PRN Sarah Martinez, FITTING ROOM OPERATOR insulin NPH (Isophane) (HumuLIN N,NovoLIN N) injection 70 Units 70 Units Subcutaneous BID Martina Foote PA ipratropium-albuterol (Duo-Neb) 0.5-2.5 mg/3 mL nebulizer solution 3 mL 3 mL Nebulization q4h PRN Marjorie Myers MD Kyree powder 1 packet 1 packet Oral BID Diane Guzman MD 1 packet at 05/05/25 1236 LORazepam (Ativan) tablet 1 mg 1 mg Oral Daily PRN Marjorie Myers MD 1 mg at 04/30/252030 magnesium oxide (Mag-Ox) tablet 800 mg 800 mg Oral Daily Diane Guzman MD 800 mg at 05/05/25 0848 metroNIDAZOLE (Flagyl) tablet 500 mg 500 mg Oral q8h Diane Guzman MD 500 mg at 05/05/25 0848 miconazole (Micotin) 2 % powder Topical BID Diane Guzman MD Given at 05/05/25 0855 oxyCODONE (Roxicodone) immediate release tablet 5 mg 5 mg Oral q4h PRN Marjorie Myers MD 5 mg at 05/05/25 1357 pantoprazole (Protonix) EC tablet 40 mg 40 mg Oral Daily before breakfast Marjorie Myers MD 40 mg at 05/05/25 0848 polyethylene glycol (Miralax) packet 17 g 17 g Oral Daily Marjorie Myers MD 17 g at 05/03/25 0921 rivaroxaban (Xarelto) tablet 20 mg 20 mg Oral Daily with dinner Diane Guzman MD 20 mg at 05/04/25 1704 sodium chloride 0.9 % flush 10 mL 10 mL Intravenous q12h Marjorie Myers MD 10 mL at 05/05/25 0907 And sodium chloride 0.9 % flush 10 mL 10 mL Intravenous PRN Marjorie Myers MD spironolactone (Aldactone) tablet 100 mg 100 mg Oral Daily Marjorie Myers MD 100 mg at 05/05/25 0848 tamsulosin (Flomax) 24 hr capsule 0.4 mg 0.4 mg Oral Daily Marjorie Myers MD 0.4 mg at 05/05/25 0848 traZODone (Desyrel) tablet 100 mg 100 mg Oral Nightly Marjorie Myers MD 100 mg at 05/04/25 2018 venlafaxine XR (Effexor-XR) 24 hr capsule 150 mg 150 mg Oral Daily Marjorie Myers MD 150 mg at 05/05/25 0849 [2] Allergies Allergen Reactions Vancomycin Other - please document in the comment field Red man syndrome * Progress Notes - Martina Foote PA - 05/05/2025 8:47 AM EDT Endocrine - Diabetes Consult follow-up: Subjective: 24 hour update: - AM BG 290 - PO intake: reports good appetite, eating all of his meals - resting in bed when seen this afternoon, reports he is feeling well with no concerns or complaints - no questions or concerns regarding diabetes regimen at this time - no acute events overnight I have reviewed the patient's blood glucose levels, labs, vitals, and insulin doses administered inthe electronic medical record. Review of Systems Constitutional: Negative for activity change. HENT: Negative for congestion. Respiratory: Negative for cough and shortness of breath. Gastrointestinal: Negative for abdominal pain, constipation, diarrhea and nausea. Skin: Positive for wound. Psychiatric/Behavioral: Negative for agitation and confusion. Objective: Physical Exam Constitutional: General: He is not in acute distress. Appearance: He is obese. He is ill-appearing. He is not diaphoretic. HENT: Head: Normocephalic and atraumatic. Right Ear: External ear normal. Left Ear: External ear normal. Nose: Nose normal. Eyes: General: No scleral icterus. Right eye: No discharge. Left eye: No discharge. Conjunctiva/sclera: Conjunctivae normal. Pulmonary: Effort: No respiratory distress. Musculoskeletal: Cervical back: Normal range of motion. Neurological: Mental Status: He is alert and oriented to person, place, and time. Psychiatric: Mood and Affect: Mood normal. Behavior: Behavior normal. Thought Content: Thought content normal. Judgment: Judgment normal. BP 129/82 Pulse 69 Temp 36.5 ??C (97.7 ??F) Resp 19 Ht 1.829 m (6') Wt (!) 267 kg (587 lb11.9 oz) BMI 79.71 kg/m?? Medications: Current Scheduled Medications[1] Current Continuous Medications[2] Current PRN Medications[3] Diet Dietary Orders (From admission, onward) Start Ordered 05/02/25 1413 Adult diet Diet texture: Regular; Carbohydrate restriction: Consistent Carb 2 (80 gm max/meal); Sodium restriction: 2,000 mg Na Diet effective now References: IDDSI Diet Texture Guide Question Answer Comment Diet texture Regular Carbohydrate restriction: Consistent Carb 2 (80 gm max/meal) Sodium restriction: 2,000 mg Na 05/02/25 1413 Lab Review: Results from last 7 days Lab Units 05/03/25 1822 SODIUM mmol/L 133* POTASSIUM mmol/L 3.6 CHLORIDE mmol/L 87* CO2 mmol/L 37* BUN mg/dL 14 CREATININE mg/dL 0.71 EGFR mL/min/1.73m*2 113.9 GLUCOSE mg/dL 290* CALCIUM mg/dL 9.4 Results from last 7 days Lab Units 05/03/25 0316 WBC 10*3/uL 6.86 HEMOGLOBIN g/dL 8.9* HEMATOCRIT % 29.2* PLATELETS 10*3/uL 202 Lab Results Component Value Date GLUCOSE 290 (H) 05/03/2025 GLUCOSE 399 (H) 05/03/2025 GLUCOSE 358 (H) 05/02/2025 PGLU 290 (H) 05/05/2025 PGLU 236 (H) 05/04/2025 PGLU 233 (H) 05/04/2025 PGLU 271 (H) 05/04/2025 PGLU 259 (H) 05/04/2025 PGLU 335 (H) 05/04/2025 PGLU 331 (H) 05/03/2025 PGLU 258 (H) 05/03/2025 I reviewed bg tracing in epic glucose timeline 05/05/25 ASSESSMENT Hospital Course: Gonzalo Smalls is a 49 y.o. male with hx of CHF, HTN, HLD, a.fib, type 2 DM [on U500 insulin], COPD, QUINN on nightly oxygen, recurrent UTIs, BPH, morbid obesity, and anxiety/depression. Patient presented to ED for evaluation of worsening right diabetic foot ulcer. Mr. Smalls presented to an OSH and Podiatry they are recommended to coming to for evaluation due to his size and delayed abilityto get him in the OR. Of note, Mr. Smalls is receiving enteral panel for recurrent UTI and has a chronic Barber. Per chart review it appears that the kidney infection is for ESBL E coli. ED lab work was significant for leukocytosis, anemia, hyperglycemia, hypokalemia, hypomagnesemia, elevated CRP and sed rate. 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 Hospital medicine was consulted for admission. Endocrine Diabetes team was consulted for glycemic management on 04/28/25. Patient on U500 insulin dosing at home. Daily Glucose and Insulin Total Daily Dose -consulted 04/28 AM BG 199 -04/30: 173-226, TDD 114 units -05/01: 222-316, TDD 133 units -05/02: 250-358, TDD 180 units -05/03: 258-372, TDD 220 units - 05/04: 236-335, TDD 226 units -A1c: Lab Results Component Value Date HGBA1C 8.9 (H) 04/29/2025 -Diet: regular CC2 [80 g/meal] -Steroids: none Diagnoses #diabetic foot ulcer -OR 05/01 for right 4th and 5th toe amputation #UTI #obesity -BMI 81.99 -complicates all aspects of care - contributes to insulin resistance #diabetes mellitus - type 2 -Home medications: CGM: [employer] G7 Insulin regimen: U500 insulin: prescription for 225 units BID patient reports taking 200 units BID --> first dispensed 03/24/2025 - last dispensed 04/24/2025. insulin pen Reports being on U500 insulin for about 1 month and glycemic control has significantly improved Non insulin diabetes medications: Ozempic - recently started increased dose 0.5 mg this past week Metformin 100 mg BID Failed/Discontinued meds: Glargine: last dispensed 04/17/2025 Novolog mix last dispensed 02/22/2025 Jardiance Did not tolerate Mounjaro due to GI issues, constipation -see inpatient diabetes plan of care below PLAN: Primary team requesting recommendations and orders -After review of glucose trends and insulin delivery over the last 24 hours, titration of intensiveinsulin therapy was made to overall improve glycemic control and improve patient outcomes Current Hospital Regimen: Insulin regimen: Basal: 60 units , NPH, BID, increased to 70 units NPH BID Bolus: 36 units lispro to cover meals increased to 44 units -Give 1/2 dose if eating 25-50% of meal -HOLD if patient NPO or if patient eats less than 25% of meal -Please document % of meal consumed in intake and output flowsheet NOTE: Snack dose: 8 units lispro PRN for overnight snacking Correction: very resistant dosing 3:50>150 lispro at mealtimes; 1;50>250 lispro bedtime, 3am PRN -Continue intensive glucose monitoring due to increased risk for hyper/hypoglycemia secondary to insulin therapy -Will continue to assess blood glucose trends and adjust basal/bolus insulin therapy dose according -fsbg ac/hs when eating, q6h when NPO, on TF/TPN -correction insulin to be given for hyperglycemia, do not hold correction if patient does not eat. -hypoglycemia protocol in place -Please document the percentage of meals consumed in intake and output flowsheet. -please notify us when diet orders change or steroids added as this impacts our tx NOTE: Patient utilizes U500 insulin pen at home. With the U500 pen, a conversion is not needed. Typically patient's required a 70% reduction in home U500 dosing. 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: DC -Tentative discharge recommendations: Insulin regimen - TBD Continue Dexcom G7 CGM Likely continue Ozempic Likely continue metformin May substitute for therapeutic equivalent per insurance and retail PharmD approval -Supplies/scripts needed: Ensure patient has working glucose meter and supplies as back-up to CGM DM/Endo team will continue to follow. Please notify us as patient nears discharge for final recommendations [facility]AN[facility] Please contact [facility] [address] [place] Adult Inpatient Diabetes team via secure chat or page us at [phone] during 7a-7p, Thursday-Thursday. For after hours please contact the on-call Endocrine Fellow. Thank you for the opportunity to participate in this patient's care. Time Spent: I personally spent a total of 31 minutes on this encounter. This time includes face to face with patient, counseling and discussion and/or coordination of care. [1] atorvastatin, 40 mg, Oral, Nightly bisoprolol, 5 mg, Oral, BID bumetanide, 4 mg, Oral, TID cariprazine, 3 mg, Oral, Daily cefepime, 2 g, Intravenous, q8h DAPTOmycin, 10 mg/kg (Adjusted), Intravenous, q24h dilTIAZem CD, 120 mg, Oral, Daily gabapentin, 600 mg, Oral, TID insulin lispro, 0-15 Units, Subcutaneous, TID with meals insulin lispro, 0-3 Units, Subcutaneous, Twice at night Insulin Lispro, 30 Units, Subcutaneous, TID with meals insulin NPH (Isophane), 60 Units, Subcutaneous, BID Kyree, 1 packet, Oral, BID magnesium oxide, 800 mg, Oral, Daily metroNIDAZOLE, 500 mg, Oral, q8h miconazole, , Topical, BID pantoprazole, 40 mg, Oral, Daily before breakfast polyethylene glycol, 17 g, Oral, Daily rivaroxaban, 20 mg, Oral, Daily with dinner sodium chloride, 10 mL, Intravenous, q12h spironolactone, 100 mg, Oral, Daily tamsulosin, 0.4 mg, Oral, Daily traZODone, 100 mg, Oral, Nightly venlafaxine XR, 150 mg, Oral, Daily [2] [3] PRN medications: acetaminophen, albuterol, glucose OR dextrose 10 % OR dextrose 10 % OR glucagon (human recombinant), guaiFENesin, Insulin Lispro, ipratropium-albuterol, LORazepam, oxyCODONE, Insert peripheral IV AND Saline lock IV AND sodium chloride AND sodium chloride * Progress Notes - Diane Guzman MD - 05/05/2025 8:18 AM EDT Subjective Lost wound vac connection this morning unfortunately. Wound care and surgery able to reorder Review of Systemsper HPI Objective Vitals Temp: [36.5 ??C (97.7 ??F)-36.7 ??C (98.1 ??F)] 36.5 ??C (97.7 ??F) Heart Rate: [69-76] 69 Resp: [19] 19 BP: (128-150)/(70-82) 129/82 Physical Exam Vitals reviewed. Constitutional: Appearance: Normal appearance. He is obese. HENT: Head: Normocephalic and atraumatic. Nose: Nose normal. Mouth/Throat: Mouth: Mucous membranes are moist. Eyes: Extraocular Movements: Extraocular movements intact. Cardiovascular: Rate and Rhythm: Normal rate. Pulmonary: Effort: Pulmonary effort is normal. Abdominal: General: Abdomen is flat. Musculoskeletal: General: Normal range of motion. Cervical back: Normal range of motion. Comments: R 5th metatarsal absent with wound vac on lateral and plantar foot Skin: General: Skin is warm. Neurological: General: No focal deficit present. Mental Status: He is alert and oriented to person, place, and time. Psychiatric: Mood and Affect: Mood normal. Behavior: Behavior normal. 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 49 yo gentleman with obesity and T2DM admitted for R diabetic foot ulcer with osteomyelitis now s/pR 5th metatarsal amputation on 05/01 with ID and vascular following whose surgical pathology is negative for OM such that antibiotics can be discontinued per ID now awaiting placement at acute rehab #Diabetic foot ulcer with 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 - P/w worsening wound R foot found to have elevated inflammatory markers and CT showing possible OMunable to do MRI 08/14 weight - Consults: vascular, ID - S/p amputation 05/01 - Wound vac placed 05/03 - Adult ID screening labs, needs hep B vaccine Plan: - Discontinue abx - Wound vac changes every 2 days - NWB until vascular surgery follow-up in 1 month at least #DM #Poorly controlled #Hyperglycemia - Home regimen 200 BID - BG ranges 300s - Hospital regimen NPH 70 BID, 44 TID, 8 BID PRN - Endocrine following, appreciate recs #Urinary retention s/p barber - Barber care per protocol - Continue home flomax #Chronic CHRF-home 2L HTN-BB AF-AC, dilt HF-bumex, gracie HLD-statin COPD-inhalers A/D-vraylar, lorazepam, venlafaxine Insomnia-trazadone GERD--PPI QUINN-?CPAP Obesity-complicates care Diet-carb 1 DVT PPX AC FULL CODE Medically Ready for Discharge:Ready now * Care Plan - Cassie Gilliam - 05/05/2025 1:19 AM EDT Problem: Skin Injury Risk Increased Goal: Skin Health and Integrity 05/05/2025117 by Cassie Gilliam Outcome: Ongoing, Progressing 05/05/2025110 by Cassie Gilliam Outcome: Ongoing, Progressing Intervention: Optimize Skin Protection Flowsheets Taken 05/05/2025 0118 Activity Management: activity adjusted per tolerance Pressure Reduction Techniques: frequent weight shift encouraged weight shift assistance provided Pressure Reduction Devices: positioning supports utilized specialty bed utilized Skin Protection: incontinence pads utilized Taken 05/05/2025 0000 Head of Bed (HOB) Positioning: HOB elevated Intervention: Promote and Optimize Oral Intake Flowsheets (Taken 05/05/2025 0118) Nutrition Interventions: food preferences provided * Care Plan - Rocío Crandall RN - 05/04/2025 6:09 PM EDT Problem: Skin Injury Risk Increased Goal: Skin Health and Integrity Outcome: Ongoing, Progressing Problem: Adult Inpatient Plan of Care Goal: Plan of Care Review Outcome: Ongoing, Progressing Flowsheets (Taken 05/04/2025 1300) Progress: improving Plan of Care Reviewed With: patient spouse Goal: Patient-Specific Goal (Individualized) Outcome: Ongoing, Progressing Goal: Absence of Hospital-Acquired Illness or Injury Outcome: Ongoing, Progressing Goal: Optimal Comfort and Wellbeing Outcome: Ongoing, Progressing Problem: Fall Injury Risk Goal: Absence of Fall and Fall-Related Injury Outcome: Ongoing, Progressing Problem: Infection Goal: Absence of Infection Signs and Symptoms Outcome: Ongoing, Progressing Problem: Mobility Impairment Goal: Optimal Mobility Outcome: Ongoing, Progressing Problem: Mobility Impairment Goal: Optimal Mobility Outcome: Ongoing, Progressing Problem: Diabetes Goal: Optimal Coping Outcome: Ongoing, Progressing Goal: Optimal Functional Ability Outcome: Ongoing, Progressing Goal: Blood Glucose Level Within Target Range Outcome: Ongoing, Progressing Goal: Minimize Hypoglycemia Risk Outcome: Ongoing, Progressing Problem: Comorbidity Management Goal: Maintenance of Asthma Control Outcome: Ongoing, Progressing Goal: Maintenance of Behavioral Health Symptom Control Outcome: Ongoing, Progressing Goal: Maintenance of COPD Symptom Control Outcome: Ongoing, Progressing Goal: Blood Glucose Level Within Target Range Outcome: Ongoing, Progressing Goal: Maintenance of Heart Failure Symptom Control Outcome: Ongoing, Progressing Goal: Blood Pressure in Desired Range Outcome: Ongoing, Progressing Goal: Maintenance of Osteoarthritis Symptom Control Outcome: Ongoing, Progressing Goal: Bariatric Home Regimen Maintained Outcome: Ongoing, Progressing Goal: Maintenance of Seizure Control Outcome: Ongoing, Progressing Problem: Wound Goal: Optimal Coping Outcome: Ongoing, Progressing Goal: Optimal Pain Control and Function Outcome: Ongoing, Progressing Goal: Optimal Wound Healing Outcome: Ongoing, Progressing Problem: Pain Acute Goal: Optimal Pain Control and Function Outcome: Ongoing, Progressing * Progress Notes - Chauncey Elena - 05/04/2025 2:27 PM EDT Physical Therapy Treatment Patient Name: Gonzalo Smalls Today's Date: 05/04/2025 PT Discharge Recommendations: Acute rehab Equipment Recommended: Defer to facility Subjective Patient agreeable to PT. Participants in Care Family/Caregiver Present: No Presentation Oxygen Therapy: Supplemental oxygen O2 Delivery Method: Nasal cannula Lines and Tubes: Intravenous access, Telemetry, Urinary catheter Pre-Session: Supine, Head of bed elevated, Lines intact Pre-Session Comments: RN agreeable. Post-Session: Lines intact, RN notified, Call light in reach, Sitting in chair Post-Session Comments: Needs met. Precautions Right Lower Extremity Weight Bearing Status: Non-Weight Bearing Medical Precautions: Fall precautions Objective Pain No c/o pain. Delirium Screening RASS: Alert and calm Confusion Assessment Method-ICU (CAM-ICU/PCAM-ICU) Feature 3: Altered Level of Consciousness: Negative Bed Mobility Bed Mobility Interventions: Pt given verbal cues timing/sequencing bed mobility and maintenence of right LE NWB precautions. Bed Mobility Exam: Rolling/Turning Level of Dundy: Contact guard Physical/Nonphysical Assist: Verbal Cues, Moderate cues Bed Mobility Exam: Scooting/Bridging Level of Dundy: Stand-by assist Bed Mobility Exam: Supine to Sit Level of Dundy: Contact guard Physical/Nonphysical Assist: Verbal Cues Bed Mobility Exam: Sit to Supine Level of Dundy: Stand-by assist Patient performed rolling bilaterally for placement of lift pad. Transfers Transfer Exam: Sit to stand Level of Dundy: (Patient unable to perform without engaging right LE to assist.) Balance Static Sitting Balance Static Sitting-Balance Support: Feet supported Static Sitting-Level of Assistance: Standby assist Dynamic Sitting Balance Dynamic Sitting-Balance Support: Feet supported Level of Assistance: Standby assisst Patient performed edge of bed balance x 15 minutes with SBA and Verbal cues to promote sequencing of lateral scooting to HOB. Therapeutic Activity (25 minutes) See bed mobility, balance and transfers. Therapeutic Exercise (13 minutes) Patient performed seated LE therex including LAQ, marching x 15 reps with verbal and visual cueing to promote tempo and full ROM. Standardized Assessments [facility] 6-Clicks Mobility Assessment Difficulty patient has turning over in bed (including adjusting bedclothes, sheets, and blankets)?:None Difficulty patient has sitting down on and standing up from a chair with arms (wheelchair, bedside commode, etc.)?: Unable Difficulty patient has moving from lying on back to sitting on the side of the bed?: None How much help does the patient need moving to and from a bed to a chair (including a wheelchair)?: Unable (Overhead lift.) How much help does the patient need to walk in hospital room?: Unable How much help does the patient need climbing 3-5 steps with a railing?: Unable [facility] 6-Clicks Mobility Assessment Total : 12 Assessment Patient tolerated treatment without adverse events today, required skilled intervention to guide appropriate performance of activities with cuing, demos and feedback provided as needed. Skilled time required for line/tube management and room setup to promote safe environment for treatment. Pt educated on interventions, relation to condition, and relevance to improving function and achieving goals. Will benefit from continued skilled inpatient PT services. PT Recommendations Discharge Destination: Acute rehab Discharge Equipment: Defer to facility Plan Continue PT POC and progress as tolerated. PT Goals PT GOAL DETAILS Goal Established Date Time Frame Goal Status PT Goal 1: Pt will be IND with HEP and discharge recommendations. 04/28/25 2 weeks PT Goal 2: Pt will perform sup<>sit with CGA. 04/28/25 2 weeks PT Goal 3: Pt will perform STS with LRAD and CGA. 04/28/25 2 weeks PT Goal 4: Pt will ambulate 50' with LRAD and CGA. 04/28/25 2 weeks PT Goal 5: Pt will navigate up/down 2 steps with CGA. 04/28/25 2 weeks Written by Chauncey Elena on 05/04/25 at 2:27 PM. * Progress Notes - Karlie Dotson - 05/04/2025 10:41 AM EDT OCCUPATIONAL THERAPY TREATMENT PATIENT DATA Patient Name Gonzalo Smalls Session Date 05/04/2025 OT Discharge Recommendations Acute rehab Equipment Recommendations Defer to facility Discharge Transportation Recommendations Wheelchair transport van/shuttle MOBILITY GUIDELINES Mobility Protocol: General - Mobility Guidelines Extremity Precautions: No Extremity Precautions Other mobility precautions: No other precautions required PRECAUTIONS Medical Precautions Yes Medical Precautions: Fall precautions HOME LIVING/SET-UP Lives With Spouse (and 15 yo daughter) Home Type House Home Equipment Rolling walker, Cane (primarily cane) Home Layout One level, Stairs to enter with rails 3 Bathroom Layout Tub/Shower combo, Tub transfer bench Standard Accessible Additional Comments has access to 02/02 PRIOR LEVEL OF FUNCTION Receives help from Spouse Level of Mobility Mobility Dundy History of Falls ADL Performance Needs assistance Needs assist Needs assist Needs assist Needs assist Independent Independent Needs assist PRESENTATION Oxygen Supplemental oxygen Nasal cannula Lines and Tubes Urethral Catheter (Active) PICC Single Lumen 04/25/25 Left (Active) Negative Pressure Wound Therapy Toe (Comment which one) Anterior;Right (Active) Pre-Session Supine, Head of bed elevated, Lines intact RN agreeable. Post-Session Lines intact, RN notified, Call light in reach, Sitting in chair Needs met. Bracing (if applicable) SUBJECTIVE PARTICIPANTS IN CARE Patient/Caregiver Comments Pt agreeable to therapy this date. Visitors Present No Fpga Engineer (if applicable) OBJECTIVE PAIN Pain Score (0-10): 7 Location: coccyx Intervention: ambulation/increased activity, position adjusted, and pillow support provided Response: improved after session DELIRIUM SCREENING RASS: Alert and calm Confusion Assessment Method-ICU (CAM-ICU/PCAM-ICU) Feature 3: Altered Level of Consciousness: Negative COGNITION SCREENING Overall Cognitive Status Within Functional Limits Arousal/Alertness Appropriate responses to stimuli Mood/Behavior Alert Orientation Oriented X4 Command Following Method of Communication Additional Observations INTERVENTIONS SELF-CARE Treatment Minutes (if applicable) 25 Interventions OT promoted adl retraining with pt demonstrating setup assist for grooming tasks and dependent for donning shoes. OT educated on pressure relief techniques to perform every 15 minutes for maintaining skin integrity. Pt improved with bed mobility requiring cga to sba for bed mobility tasks. Level of Dundy Adaptive Equipment Utilized Comments Feeding Grooming Setup washing face/hands Bathing Upper Body Dressing Lower Body Dressing Shoe Level of Assistance: Dependent Toileting IADLs Health Management Community Re-Entry BALANCE Postural Appearance INTERVENTIONS Level of Dundy Balance Support Comments Static Sit Standby assist Feet supported Dynamic Sit Standby assisst Feet supported Static Stand Dynamic Stand FUNCTIONAL MOBILITY Comments Functional mobility and transfers performed to facilitate participation in ADL routines within home environment and community as part of patient's prior baseline level of participation. Therapist provided verbal/tactile/environmental cues for postural control, hand placement, device management, pacing and weight shifting to promote safety. Level of Dundy Physical/Non-physical Assist Adaptive Equipment Utilized Rolling/ Turning Scooting/ Bridging Stand-by assist Overhead trapeze Supine to Sit Contact guard Verbal Cues Overhead trapeze Sit to Supine Stand-by assist Bed rails, Overhead trapeze Sit to Stand Stand to sit Bed to Chair Dependent Overhead lift Additional assist utilized for safety, Verbal Cues, Nonverbal cues (demo/gestures), Minimal cues Toilet Transfer Shower Transfer Additional Transfers Therapeutic Exercise (13 minutes) OT promoted strengthening through use of graded TE. Pt able to use bues to perform exercises against gravity as well as weight bearing through UEs for weight shifting/pressure relief techniques. Goodteach back demonstrated. ASSESSMENT OT provided adl retraining with focus on improving self care performance in order to return to prior level of function. Pt response to treatment with improved activity tolerance and independence in bed mobility. Barriers to returning to prior living arrangements include decreased ability to safely p erform functional mobility in household setting without risk of fall or injury, inability to perform self care tasks or manage medical symptoms increasing risk for readmission, and overall decreased activity tolerance limiting capacity to engage in activities of daily living safely. Patient will benefit from continued skilled occupational therapy and acute rehab placement upon D/C for the following reasons: The patient requires the active and ongoing therapeutic interventions of multiple therapy disciplines, one of which must be physical or occupational therapy. ?? The patient is able to participate in 3 hours of therapy 5 days per week. ?? The patient will be expected to actively participate in and benefit significantly from the intensive rehabilitation program, which will be of practical value to improve the patient's functional capacity or adaptation to impairments in a reasonable period. ?? The patient may require physician supervision by a rehabilitation physician three times weekly and 24-hour nursing. ?? The patient requires an intensive and coordinated interdisciplinary approach to providing rehabilitation. ?? The patient's medical and rehab needs cannot be met at a lower level of care, such as a subacuterehab facility, home health, or outpatient therapy. OT RECOMMENDATIONS Discharge Destination Acute rehab Discharge Equipment Defer to facility PLAN OT to continue to address adl performance, functional mobility, activity tolerance, balance, and safety. OT GOALS OT GOAL DETAILS Goal Established Date Time Frame Goal Status OT Goal 1: Pt will complete sit <> stand and BSC transfers with SBA using AE PRN and maintaining NWB RLE status 04/28/25 2 weeks OT Goal 2: Pt will complete lower body dressing independently 04/28/25 2 weeks OT Goal 3: Pt will verbalize/demonstrate independence with UE HEP to facilitate increased strength and endurance for engaging in functional tasks 04/28/25 2 weeks Written by Karlie Dotson on 05/04/25 at 1:49 PM. * Progress Notes - Janelle Phan PA - 05/04/2025 9:09 AM EDT Images from the original note were not included. BONE & JOINT INFECTIOUS DISEASE PROGRESS NOTE 05/04/2025 SUBJECTIVE: MARYANN, patient seen and evaluated this afternoon with family present. He states that he is doing well today, no changes in pain. He has done well with changes in antibiotics. Denies concerns or queestions at this time. REVIEW OF SYSTEMS: Complete 14 point review of systems is negative except for positives documented in HPI/subjective MEDICATIONS: Current Medications[1] ALLERGIES: Allergies[2] PHYSICAL EXAM: GEN: Chronically ill-appearing, obese male, resting comfortably in bed SKIN: Wound VAC to right lateral foot, no surrounding erythema. Chronic BLE venous stasis changes. Skin is otherwise warm, well-perfused, no rashes or lesions on exposed skin. EYES: Sclera anicteric, EOMI HENT: NCAT, neck supple, full ROM, mmm CHEST: Atraumatic, symmetric chest rise HEART: Deferred LUNGS: No respiratory distress on 2 L NC GI: Abdomen appears non-distended : Barber in place with clear, yellow urine VASC: No cyanosis, chronic BLE edema, peripheral pulses 2+ MSK: Right foot as above, otherwise no obvious deformities NEURO: A&OX3, no acute focal neurological deficits noted PSYCH: Appropriate mood and affect VITAL SIGNS: Patient Vitals for the past 24 hrs: BP Temp Temp src Pulse Resp SpO2 Weight 05/04/25 0810 124/79 36.6 ??C (97.9 ??F) Oral 75 -- 99 % -- 05/04/25 0401 (!) 154/64 36.4 ??C (97.6 ??F) Oral 65 18 94 % (!) 250 kg (550 lb 11.4 oz) 05/03/25 2352 (!) 145/75 36.6 ??C (97.9 ??F) -- 73 -- 96 % -- 05/03/25 1927 (!) 144/88 36.6 ??C (97.9 ??F) Oral 93 19 100 % -- 05/03/25 1621 (!) 171/66 36.8 ??C (98.2 ??F) Oral 73 18 97 % -- 05/03/25 1216 (!) 147/75 36.7 ??C (98 ??F) Oral 74 18 96 % -- LABS: Labs in last 18 hours CBC WBC ?? Hb ?? Plt ?? Hct ?? ANC ?? INR ??, PTT ??, Anti-Xa ?? BMP Na 133 (L) Cl 87 (L) BUN 14 Glu 290 (H) K 3.6 Co2 37 (H) Cr 0.71 Ca 9.4 iCa ?? Mg ??, Phos ?? Lactate ?? LFT AST 18 AlkPhos 64 T Prot 8.0 (H) ALK 12 Bili 0.7 Alb ?? D.Bili ?? Lab Results Component Value Date CRP 82.6 (H) 04/27/2025 CRP 9.2 02/18/2019 Lab Results Component Value Date CK 54 05/03/2025 CK 50 05/02/2025 CK 60 05/01/2025 CK 71 04/27/2025 CK 107 02/18/2019 Patient records reviewed and pertinent findings outlined below. IMAGING/STUDIES: CT Foot Right w IV Contrast Result Date: 04/28/2025 Impression: Soft tissue defect along the dorsal lateral foot and open, comminuted fracture and irregularity of the fifth metatarsal head. These findings are compatible with osteomyelitis. No discreteabscess. Exam limited by positioning. XR Foot Right 3+ Views Result Date: 04/27/2025 Impression: Chronic ulcer in the lateral forefoot. There is adjacent osseous destruction and erosions at the fifth MTP suggestive of osteomyelitis. ANTIMICROBIAL REVIEW: PO Metronidazole 10/22/25 - Present IV Cefepime 05/03/25 - Present IV Daptomycin 04/28/25 - Present IV Meropenem 04/28/25 - 05/03/25 MICROBIOLOGY: 04/28/25 MDR swab No MDRO isolated 04/27/25 Blood culture NGTD [facility] Culture Data: - 04/25/25: Blood culture NGTD - 04/25/25 Urine culture >100k E. Coli >100k GNR ADULT ID SCREENING: - Hepatitis A - IgG Negative (05/03/25) --> Not immune - Hepatitis B - sAb Negative (05/03/25) --> Not immune - sAg Negative (05/03/25) - Total core Ab Negative (05/03/25) - Hepatitis C - Ab Negative (04/27/25) - HIV - Ab Non-reactive (04/27/25) ASSESSMENT: Gonzalo Smalls is a 49 y.o. male with a PMH of T2DM c/b peripheral neuropathy, HTN, HLD, Afib, on Xarelto, morbid obesity, and QUINN who presented to on for evaluation of a right diabetic foot ulcer. Initial labs significant for leukocytosis of 12,000 and CRP 82.6. X-ray imaging of the right foot showed a lateral forefoot chronic ulcer with 5th MTP bony erosion and destruction. CT of the right foot with IV contrast demonstrated a ulcer to the dorsal and lateral aspect of the right foot with an open and comminuted 5th metatarsal head fracture consistent with osteomyelitis. Given concern for bony infection, ID bone and joint was consulted on 04/28/25 for evaluation. 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 coli - Type 2 Diabetes Mellitus c/b Peripheral Neuropathy - Hemoglobin A1c 8.9% - Complicates wound healing and treatment of infection - Patient would benefit from tight glucose control - Obesity - Body mass index is 76.9 kg/m??. - Complicates all aspects of care - Afib on Xarelto, HTN, HLD, QUINN RECOMMENDATIONS: - Continue renal dose equivalent Cefepime 2 g IV q8h - Continue Metronidazole 500 mg PO q8h - Continue renal dose equivalent Daptomycin 1500 mg IV q24h (10 mg/kg by adjusted body weight) - Trend CBC w/ diff, CMP, CRP, and CK at least twice weekly while inpatient to monitor for toxicityand ensure appropriate response to treatment. Vancomycin drug level monitoring per pharmacy protocol - Follow for bony pathology, duration TBD, remains pending - Recommend outpatient follow-up for Hepatitis A and Hepatitis B immunization series - Plan of care and recommendations discussed with patient's primary provider Thank you for allowing us to participate in this patient's care. ID will follow. Janelle Phan PA-C Division of Infectious Diseases Available by [employer] History, assessment, and plan discussed with ID attending, Dr. Chintan Doran The following complex inpatient infectious disease services were performed today: Complex antimicrobial therapy counseling and treatment [1] Current Facility-Administered Medications Medication Dose Route Frequency Provider Last Rate Last Admin acetaminophen (Tylenol) tablet 1,000 mg 1,000 mg Oral q6h PRN Marjorie Myers MD 1,000 mg at 05/02/252057 albuterol 108 (90 Base) MCG/ACT inhaler 2 puff 2 puff Inhalation q4h PRN Marjorie Myers MD atorvastatin (Lipitor) tablet 40 mg 40 mg Oral Nightly Marjorie Myers MD 40 mg at 05/03/252038 bisoprolol (Zebeta) tablet 5 mg 5 mg Oral BID Marjorie Myers MD 5 mg at 05/03/252043 bumetanide (Bumex) tablet 4 mg 4 mg Oral TID Marjorie Myers MD 4 mg at 05/03/252038 cariprazine (Vraylar) capsule 3 mg 3 mg Oral Daily Marjorie Myers MD 3 mg at 05/03/25 09 cefepime (Maxipime) 2 g in sodium chloride 0.9% 100 mL IVPB (vial adapter required) 2 g [id number] Diane Guzman MD 36.7 mL/hr at 05/03/25 2354 2 g at 05/03/25 2354 DAPTOmycin (Cubicin) 1,500 mg in sodium chloride 0.9 % 100 mL IVPB 10 mg/kg (Adjusted) Intravenous q24h Marjorie Myers MD 280 mL/hr at 10/22/25 1811 1,500 mg at 05/03/251810 glucose (Glutose) 40 % oral gel 15-30 grams of glucose 15-30 grams of glucose Sublingual q15 min PRN Marjorie Myers MD Or dextrose 10 % (D10W) bolus 125 mL 125 mL Intravenous q15 min PRN Marjorie Myers MD Or dextrose 10 % (D10W) bolus 250 mL 250 mL Intravenous q15 min PRN Marjorie Myers MD Or glucagon (human recombinant) injection 1 mg 1 mg Intramuscular q15 min PRN Marjorie Myers MD dilTIAZem CD (Cardizem CD) 24 hr capsule 120 mg 120 mg Oral Daily Marjorie Myers MD 120 mg at gabapentin (Neurontin) capsule 600 mg 600 mg Oral TID Marjorie Myers MD 600 mg at 05/03/252038 insulin lispro (Admelog) 100 units/mL injection - Correction - Very Resistant Dose 0-15 Units Subcutaneous TID with meals Marjorie Myers MD 9 Units at 05/03/251809 insulin lispro (Admelog) injection - Correction - Nighttime Dose 0-3 Units Subcutaneous Twice at night Marjorie Myers MD 2 Units at 05/04/25447 Insulin Lispro (Admelog, HumaLOG) 100 UNIT/ML injection 30 Units 30 Units Subcutaneous TID with meals Sarah Martinez, FITTING ROOM OPERATOR 30 Units at 05/03/251810 Insulin Lispro (Admelog, HumaLOG) 100 UNIT/ML injection 8 Units 8 Units Subcutaneous BID PRN Sarah Martinez P, FITTING ROOM OPERATOR insulin NPH (Isophane) (HumuLIN N,NovoLIN N) injection 50 Units 50 Units Subcutaneous BID Sarah Martinez P, FITTING ROOM OPERATOR 50 Units at 05/03/252043 ipratropium-albuterol (Duo-Neb) 0.5-2.5 mg/3 mL nebulizer solution 3 mL 3 mL Nebulization q4h PRN Marjorie Myers MD Kyree powder 1 packet 1 packet Oral BID Diane Guzman MD 1 packet at 05/03/252038 LORazepam (Ativan) tablet 1 mg 1 mg Oral Daily PRN Marjorie Myers MD 1 mg at 04/30/252030 magnesium oxide (Mag-Ox) tablet 800 mg 800 mg Oral Daily Diane Guzman MD 800 mg at 05/03/25921 metroNIDAZOLE (Flagyl) tablet 500 mg 500 mg Oral q8h Diane Guzman MD 500 mg at 05/03/252353 miconazole (Micotin) 2 % powder Topical BID Diane Guzman MD Given at 05/03/252048 oxyCODONE (Roxicodone) immediate release tablet 5 mg 5 mg Oral q4h PRN Marjorie Myers MD 5 mg at 05/03/252037 pantoprazole (Protonix) EC tablet 40 mg 40 mg Oral Daily before breakfast Marjorie Myers MD 40 mg at 05/03/25933 polyethylene glycol (Miralax) packet 17 g 17 g Oral Daily Marjorie Myers MD 17 g at 05/03/25920 rivaroxaban (Xarelto) tablet 20 mg 20 mg Oral Daily with dinner Diane Guzman MD 20 mg at 05/03/251809 sodium chloride 0.9 % flush 10 mL 10 mL Intravenous q12h Marjorie Myers MD 10 mL at 05/03/25 184 And sodium chloride 0.9 % flush 10 mL 10 mL Intravenous PRN Marjorie Myers MD spironolactone (Aldactone) tablet 100 mg 100 mg Oral Daily Marjorie Myers MD 100 mg at 05/03/25921 tamsulosin (Flomax) 24 hr capsule 0.4 mg 0.4 mg Oral Daily Marjorie Myers MD 0.4 mg at 05/03/25921 traZODone (Desyrel) tablet 100 mg 100 mg Oral Nightly Marjorie Myers MD 100 mg at 05/03/252038 venlafaxine XR (Effexor-XR) 24 hr capsule 150 mg 150 mg Oral Daily Marjorie Myers MD 150 mg at 05/03/25920 [2] Allergies Allergen Reactions Vancomycin Other - please document in the comment field Red man syndrome * Progress Notes - Aileen Leonardo, ADALGISA - 05/04/2025 8:37 AM EDT Endocrine - Diabetes Consult follow-up: Subjective: 24 hour update: -Patient to the OR 05/01/25 for right 4th and 5th toe amputation -AM BG 259 -good PO intake -often eating overnight -insulin regimen further adjusted to assist with persistent hyperglycemia I have reviewed the patient's blood glucose levels, labs, vitals, and insulin doses administered inthe electronic medical record. Objective: BP 124/79 (BP Location: Right arm, Patient Position: Lying) Pulse 75 Temp 36.6 ??C (97.9 ??F) (Oral) Resp 18 Ht 1.829 m (6') Wt (!) 250 kg (550 lb 11.4 oz) BMI 74.69 kg/m?? Medications: Current Scheduled Medications[1] Current Continuous Medications[2] Current PRN Medications[3] Diet Dietary Orders (From admission, onward) Start Ordered 05/02/25 1413 Adult diet Diet texture: Regular; Carbohydrate restriction: Consistent Carb 2 (80 gm max/meal); Sodium restriction: 2,000 mg Na Diet effective now References: IDDSI Diet Texture Guide Question Answer Comment Diet texture Regular Carbohydrate restriction: Consistent Carb 2 (80 gm max/meal) Sodium restriction: 2,000 mg Na 05/02/25 1413 Lab Review: Results from last 7 days Lab Units 05/03/25 1822 SODIUM mmol/L 133* POTASSIUM mmol/L 3.6 CHLORIDE mmol/L 87* CO2 mmol/L 37* BUN mg/dL 14 CREATININE mg/dL 0.71 EGFR mL/min/1.73m*2 113.9 GLUCOSE mg/dL 290* CALCIUM mg/dL 9.4 Results from last 7 days Lab Units 05/03/25 0316 WBC 10*3/uL 6.86 HEMOGLOBIN g/dL 8.9* HEMATOCRIT % 29.2* PLATELETS 10*3/uL 202 Lab Results Component Value Date GLUCOSE 290 (H) 05/03/2025 GLUCOSE 399 (H) 05/03/2025 GLUCOSE 358 (H) 05/02/2025 PGLU 259 (H) 05/04/2025 PGLU 335 (H) 05/04/2025 PGLU 331 (H) 05/03/2025 PGLU 258 (H) 05/03/2025 PGLU 310 (H) 05/03/2025 PGLU 339 (H) 05/03/2025 PGLU 372 (H) 05/03/2025 PGLU 325 (H) 05/02/2025 I reviewed bg tracing in [facility] glucose timeline 05/04/25 ASSESSMENT Hospital Course: Gonzalo Smalls is a 49 y.o. male with hx of CHF, HTN, HLD, a.fib, type 2 DM [on U500 insulin], COPD, QUINN on nightly oxygen, recurrent UTIs, BPH, morbid obesity, and anxiety/depression. Patient presented to ED for evaluation of worsening right diabetic foot ulcer. Mr. Smalls presented to an OSH and Podiatry they are recommended to coming to for evaluation due to his size and delayed abilityto get him in the OR. Of note, Mr. Smalls is receiving enteral panel for recurrent UTI and has a chronic Barber. Per chart review it appears that the kidney infection is for ESBL E coli. ED lab work was significant for leukocytosis, anemia, hyperglycemia, hypokalemia, hypomagnesemia, elevated CRP and sed rate. 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 Hospital medicine was consulted for admission. Endocrine Diabetes team was consulted for glycemic management on 04/28/25. Patient on U500 insulin dosing at home. Daily Glucose and Insulin Total Daily Dose -consulted 10 AM BG 199 -04/30: 173-226, TDD 114 units -05/01: 222-316, TDD 133 units -05/02: 250-358, TDD 180 units -05/03: 258-372, TDD 220 units -A1c: Lab Results Component Value Date HGBA1C 8.9 (H) 04/29/2025 -Diet: regular CC2 [80 g/meal] -Steroids: none Diagnoses #diabetic foot ulcer -OR 05/01 for right 4th and 5th toe amputation #UTI #obesity -BMI 81.99 -complicates all aspects of care - contributes to insulin resistance #diabetes mellitus - type 2 -Home medications: CGM: DexVasSol G7 Insulin regimen: U500 insulin: prescription for 225 units BID patient reports taking 200 units BID --> first dispensed 03/24/2025 - last dispensed 04/24/2025. insulin pen Reports being on U500 insulin for about 1 month and glycemic control has significantly improved Non insulin diabetes medications: Ozempic - recently started increased dose 0.5 mg this past week Metformin 100 mg BID Failed/Discontinued meds: Glargine: last dispensed 04/17/2025 Novolog mix last dispensed 02/22/2025 Jarditammie Did not tolerate Mounjaro due to GI issues, constipation -see inpatient diabetes plan of care below PLAN: Primary team requesting recommendations and orders -After review of glucose trends and insulin delivery over the last 24 hours, titration of intensiveinsulin therapy was made to overall improve glycemic control and improve patient outcomes Current Hospital Regimen: Insulin regimen: Basal: 50 units , NPH, BID, increased to 60 units Bolus: 30 units lispro to cover meals -Give 1/2 dose if eating 25-50% of meal -HOLD if patient NPO or if patient eats less than 25% of meal -Please document % of meal consumed in intake and output flowsheet NOTE: Snack dose: 8 units lispro PRN for overnight snacking Correction: very resistant dosing 3:50>150 lispro at mealtimes; 1;50>250 lispro bedtime, 3am PRN -Continue intensive glucose monitoring due to increased risk for hyper/hypoglycemia secondary to insulin therapy -Will continue to assess blood glucose trends and adjust basal/bolus insulin therapy dose according -fsbg ac/hs when eating, q6h when NPO, on TF/TPN -correction insulin to be given for hyperglycemia, do not hold correction if patient does not eat. -hypoglycemia protocol in place -Please document the percentage of meals consumed in intake and output flowsheet. -please notify us when diet orders change or steroids added as this impacts our tx NOTE: -Patient utilizes U500 insulin pen at home. With the U500 pen, a conversion is not needed. Typically patient's required a 70% reduction in home U500 dosing. 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 Please notify us as patient nears discharge for final recommendations Please contact Aileen Leonardo APRN [place] Adult Inpatient Diabetes team via secure chat orpage us at [phone] during 7a-7p, Thursday-Thursday. For after hours please contact the on-call Endocrine Fellow. Thank you for the opportunity to participate in this patient's care. - Reviewed notes by primary team and consulting services to determine appropriate plan of care as in the note. [1] atorvastatin, 40 mg, Oral, Nightly bisoprolol, 5 mg, Oral, BID bumetanide, 4 mg, Oral, TID cariprazine, 3 mg, Oral, Daily cefepime, 2 g, Intravenous, q8h DAPTOmycin, 10 mg/kg (Adjusted), Intravenous, q24h dilTIAZem CD, 120 mg, Oral, Daily gabapentin, 600 mg, Oral, TID insulin lispro, 0-15 Units, Subcutaneous, TID with meals insulin lispro, 0-3 Units, Subcutaneous, Twice at night Insulin Lispro, 30 Units, Subcutaneous, TID with meals insulin NPH (Isophane), 50 Units, Subcutaneous, BID Kyree, 1 packet, Oral, BID magnesium oxide, 800 mg, Oral, Daily metroNIDAZOLE, 500 mg, Oral, q8h miconazole, , Topical, BID mupirocin, 1 Application, Each Nostril, BID pantoprazole, 40 mg, Oral, Daily before breakfast polyethylene glycol, 17 g, Oral, Daily rivaroxaban, 20 mg, Oral, Daily with dinner sodium chloride, 10 mL, Intravenous, q12h spironolactone, 100 mg, Oral, Daily tamsulosin, 0.4 mg, Oral, Daily traZODone, 100 mg, Oral, Nightly venlafaxine XR, 150 mg, Oral, Daily [2] [3] PRN medications: acetaminophen, albuterol, glucose OR dextrose 10 % OR dextrose 10 % OR glucagon (human recombinant), Insulin Lispro, ipratropium-albuterol, LORazepam, oxyCODONE, Insert peripheral IV AND Saline lock IV AND sodium chloride AND sodium chloride * Progress Notes - Diane Guzman MD - 05/04/2025 8:23 AM EDT Subjective Curious about when he can start putting weight on his foot. Recognizes that cannot go home walking on one leg. Wonders about plan for as much afterwards. may have had other questions Review of Systemsper HPI Objective Vitals Temp: [36.4 ??C (97.6 ??F)-36.8 ??C (98.2 ??F)] 36.7 ??C (98.1 ??F) Heart Rate: [65-93] 75 Resp: [18-19] 18 BP: (124-171)/(64-88) 146/79 Physical Exam Vitals reviewed. Constitutional: Appearance: Normal appearance. He is obese. HENT: Head: Normocephalic and atraumatic. Nose: Nose normal. Mouth/Throat: Mouth: Mucous membranes are moist. Eyes: Extraocular Movements: Extraocular movements intact. Cardiovascular: Rate and Rhythm: Normal rate. Pulmonary: Effort: Pulmonary effort is normal. Abdominal: General: Abdomen is flat. Musculoskeletal: General: Normal range of motion. Cervical back: Normal range of motion. Comments: R 5th metatarsal absent with wound vac on lateral and plantar foot Skin: General: Skin is warm. Neurological: General: No focal deficit present. Mental Status: He is alert and oriented to person, place, and time. Psychiatric: Mood and Affect: Mood normal. Behavior: Behavior normal. Labs in last 18 hours CBC WBC ?? Hb ?? Plt ?? Hct ?? ANC ?? INR ??, PTT ??, Anti-Xa ?? BMP Na ?? Cl ?? BUN ?? Glu ?? K ?? Co2 ?? Cr ?? Ca ?? iCa ?? Mg ??, Phos ?? Lactate ?? LFT AST ?? AlkPhos ?? T Prot ?? ALK ?? Bili ?? Alb ?? D.Bili ?? 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 49 yo gentleman with obesity and T2DM admitted for R diabetic foot ulcer with osteomyelitis now s/pR 5th metatarsal amputation on 05/01 with ID and vascular following currently on dapto, cefepime, and metronidazole per ID recs awaiting surgical pathology #Diabetic foot ulcer with 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 - P/w worsening wound R foot found to have elevated inflammatory markers and CT showing possible OMunable to do MRI 2/ weight - Consults: vascular, ID - S/p amputation 05/01 - Wound vac placed 05/03 - Adult ID screening labs, needs hep B vaccine Plan: - Continue daptomycin, cefepime, metronidazole renally dosed per ID recs pending cx data - Twice weekly labs - Wound vac changes every 2 days - NWB until vascular surgery follow-up in 1 month at least #DM #Poorly controlled #Hyperglycemia - Home regimen 200 BID - BG ranges 300s - Hospital regimen NPH 60 BID, 30 TID, 8 BID PRN - Endocrine following, appreciate recs #Urinary retention s/p barber - Barber care per protocol - Continue home flomax #Chronic CHRF-home 2L HTN-BB AF-AC, dilt HF-bumex, gracie HLD-statin COPD-inhalers A/D-vraylar, lorazepam, venlafaxine Insomnia-trazadone GERD--PPI QUINN-?CPAP Obesity-complicates care Diet-carb 1 DVT PPX AC FULL CODE Medically Ready for Discharge:Anticipated in 5+ Days * Care Plan - Aime Gill RN - 05/03/2025 11:25 PM EDT Problem: Skin Injury Risk Increased Goal: Skin Health and Integrity Outcome: Ongoing, Progressing Problem: Adult Inpatient Plan of Care Goal: Plan of Care Review Outcome: Ongoing, Progressing Flowsheets Taken 05/03/2025 184 by Kylee Gonzalez RN Progress: improving Taken 05/02/20251819 by Santy Garcia RN Plan of Care Reviewed With: patient Goal: Patient-Specific Goal (Individualized) Outcome: Ongoing, Progressing Flowsheets (Taken 05/03/20252000) Patient/Family-Specific Goals (Include Timeframe): Patient will remian free of falls/injury this shift Individualized Care Needs: ADL assistance Anxieties, Fears or Concerns: Ambulation/PT Goal: Absence of Hospital-Acquired Illness or Injury Outcome: Ongoing, Progressing Goal: Optimal Comfort and Wellbeing Outcome: Ongoing, Progressing Problem: Fall Injury Risk Goal: Absence of Fall and Fall-Related Injury Outcome: Ongoing, Progressing Problem: Infection Goal: Absence of Infection Signs and Symptoms Outcome: Ongoing, Progressing Problem: Mobility Impairment Goal: Optimal Mobility Outcome: Ongoing, Progressing Problem: Mobility Impairment Goal: Optimal Mobility Outcome: Ongoing, Progressing Problem: Diabetes Goal: Optimal Coping Outcome: Ongoing, Progressing Goal: Optimal Functional Ability Outcome: Ongoing, Progressing Goal: Blood Glucose Level Within Target Range Outcome: Ongoing, Progressing Goal: Minimize Hypoglycemia Risk Outcome: Ongoing, Progressing Problem: Comorbidity Management Goal: Maintenance of Asthma Control Outcome: Ongoing, Progressing Goal: Maintenance of Behavioral Health Symptom Control Outcome: Ongoing, Progressing Goal: Maintenance of COPD Symptom Control Outcome: Ongoing, Progressing Goal: Blood Glucose Level Within Target Range Outcome: Ongoing, Progressing Goal: Maintenance of Heart Failure Symptom Control Outcome: Ongoing, Progressing Goal: Blood Pressure in Desired Range Outcome: Ongoing, Progressing Goal: Maintenance of Osteoarthritis Symptom Control Outcome: Ongoing, Progressing Goal: Bariatric Home Regimen Maintained Outcome: Ongoing, Progressing Goal: Maintenance of Seizure Control Outcome: Ongoing, Progressing Problem: Wound Goal: Optimal Coping Outcome: Ongoing, Progressing Goal: Optimal Pain Control and Function Outcome: Ongoing, Progressing Goal: Optimal Wound Healing Outcome: Ongoing, Progressing Problem: Pain Acute Goal: Optimal Pain Control and Function Outcome: Ongoing, Progressing * Care Plan - Kylee Gonzalez RN - 05/03/2025 6:45 PM EDT Problem: Skin Injury Risk Increased Goal: Skin Health and Integrity 05/03/20251841 by Kylee Gonzalez RN Outcome: Ongoing, Progressing 05/03/20251841 by Kylee Gonzalez RN Outcome: Ongoing, Progressing Intervention: Optimize Skin Protection Flowsheets Taken 05/03/2025 184 by Kylee Gonzalez RN Activity Management: activity encouraged activity adjusted per tolerance up in chair Taken 05/03/2025 1400 by Kylee Gonzalez RN Head of Bed (HOB) Positioning: HOB elevated Taken 05/02/2025 1820 by Santy Garcia, RN Skin Protection: incontinence pads utilized Taken 05/02/2025 1259 by Jeevan Shah RN Pressure Reduction Devices: specialty bed utilized Taken 04/30/2025 1452 by Radha Saavedra, LOLA Pressure Reduction Techniques: frequent weight shift encouraged weight shift assistance provided Intervention: Promote and Optimize Oral Intake Flowsheets (Taken 04/30/2025 1452 by Radha Saavedra, RN) Oral Nutrition Promotion: rest periods promoted Problem: Adult Inpatient Plan of Care Goal: Plan of Care Review 05/03/20251841 by Kylee Gonzalez RN Outcome: Ongoing, Progressing Flowsheets (Taken 05/02/2025 1820 by Santy Garcia, LOLA) Plan of Care Reviewed With: patient 05/03/20251841 by Kylee Gonzalez RN Outcome: Ongoing, Progressing Flowsheets Taken 05/03/20251841 by Kylee Gonzalez RN Progress: improving Taken 05/02/2025 1820 by Santy Garcia, RN Plan of Care Reviewed With: patient Goal: Patient-Specific Goal (Individualized) 05/03/20251841 by Kylee Gonzalez RN Outcome: Ongoing, Progressing Flowsheets (Taken 05/03/2025 1510) Patient/Family-Specific Goals (Include Timeframe): PT will remain free of falls/injury throughout this shift. Individualized Care Needs: ADL assistance/recommendations from PT/OT Anxieties, Fears or Concerns: None stated 05/03/20251841 by Kylee Gonzalez RN Outcome: Ongoing, Progressing Flowsheets (Taken 05/03/2025 1510) Patient/Family-Specific Goals (Include Timeframe): PT will remain free of falls/injury throughout this shift. Individualized Care Needs: ADL assistance/recommendations from PT/OT Anxieties, Fears or Concerns: None stated Goal: Absence of Hospital-Acquired Illness or Injury 05/03/20251841 by Kylee Gonzalez RN Outcome: Ongoing, Progressing 05/03/20251841 by Kylee Gonzalez RN Outcome: Ongoing, Progressing Intervention: Identify and Manage Fall Risk Flowsheets (Taken 05/03/2025 0800) Safety Promotion/Fall Prevention: room organization consistent fall prevention program maintained clutter-free environment maintained activity supervised Intervention: Prevent and Manage VTE (Venous Thromboembolism) Risk Flowsheets (Taken 05/03/2025 1600) VTE Prevention/Management: SCDs (sequential compression devices) off patient refused intervention education provided Goal: Optimal Comfort and Wellbeing 05/03/20251841 by Kylee Gonzalez RN Outcome: Ongoing, Progressing 05/03/20251841 by Kylee Gonzalez RN Outcome: Ongoing, Progressing Intervention: Monitor Pain and Promote Comfort Flowsheets (Taken 05/03/2025 0459 by Aime Gill, LOLA) Pain Management Interventions: medication (see MAR) Intervention: Provide Person-Centered Care Flowsheets (Taken 05/01/2025 1130 by Rocío Crandall RN) Trust Relationship/Rapport: care explained choices provided emotional support provided empathic listening provided questions answered thoughts/feelings acknowledged reassurance provided questions encouraged Problem: Fall Injury Risk Goal: Absence of Fall and Fall-Related Injury 05/03/20251841 by Kylee Gonzalez RN Outcome: Ongoing, Progressing 05/03/20251841 by Kylee Gonzalez RN Outcome: Ongoing, Progressing Intervention: Promote Injury-Free Environment Flowsheets (Taken 05/03/2025 0800) Safety Promotion/Fall Prevention: room organization consistent fall prevention program maintained clutter-free environment maintained activity supervised Problem: Infection Goal: Absence of Infection Signs and Symptoms 05/03/20251841 by Kylee Gonzalez RN Outcome: Ongoing, Progressing 05/03/20251841 by Kylee Gonzalez RN Outcome: Ongoing, Progressing Intervention: Prevent or Manage Infection Flowsheets Taken 05/03/2025 0800 by Kylee Gonzalez RN Isolation Precautions: precautions maintained Taken 05/02/20251819 by Santy Garcia RN Fever Reduction/Comfort Measures: lightweight clothing Taken 05/01/2025 1130 by Rocío Crandall RN Infection Management: aseptic technique maintained Problem: Mobility Impairment Goal: Optimal Mobility 05/03/20251841 by Kylee Gonzalez RN Outcome: Ongoing, Progressing 05/03/20251841 by Kylee Gonzalez RN Outcome: Ongoing, Progressing Intervention: Optimize Mobility Flowsheets Taken 05/03/20251841 by Kylee Gonzalez RN Activity Management: activity encouraged activity adjusted per tolerance up in chair Assistive Device Utilized: lift device Taken 05/01/2025 1130 by Rocío Crandall RN Positioning/Transfer Devices: pillows air-assisted device Problem: Mobility Impairment Goal: Optimal Mobility 05/03/20251841 by Kylee Gonzalez RN Outcome: Ongoing, Progressing 05/03/20251841 by Kylee Gonzalez RN Outcome: Ongoing, Progressing Problem: Diabetes Goal: Optimal Coping 05/03/20251841 by Kylee Gonzalez RN Outcome: Ongoing, Progressing 05/03/20251841 by Kylee Gonzalez RN Outcome: Ongoing, Progressing Intervention: Support Wellbeing and Self-Management Success Flowsheets (Taken 05/02/20251819 by Santy Garcia, RN) Supportive Measures: relaxation techniques promoted self-care encouraged self-reflection promoted Family/Support System Care: self-care encouraged Goal: Optimal Functional Ability 05/03/20251841 by Kylee Gonzalez RN Outcome: Ongoing, Progressing 05/03/20251841 by Kylee Gonzalez RN Outcome: Ongoing, Progressing Intervention: Optimize Functional Ability Flowsheets Taken 05/03/20251841 by Kylee Gonzalez RN Activity Management: activity encouraged activity adjusted per tolerance up in chair Assistive Device Utilized: lift device Taken 05/02/20252000 by Aime Gill RN Activity Assistance Provided: lift team assistance Taken 05/02/20251819 by Santy Garcia, RN Self-Care Promotion: independence encouraged Goal: Blood Glucose Level Within Target Range 05/03/20251841 by Kylee Gonzalez RN Outcome: Ongoing, Progressing 05/03/20251841 by Kylee Gonzalez RN Outcome: Ongoing, Progressing Intervention: Optimize Glycemic Control Flowsheets (Taken 05/02/20251819 by Santy Garcia, RN) Hyperglycemia Management: blood glucose monitored Goal: Minimize Hypoglycemia Risk 05/03/20251841 by Kylee Gonzalez RN Outcome: Ongoing, Progressing 05/03/20251841 by Kylee Gonzalez RN Outcome: Ongoing, Progressing Intervention: Minimize and Manage Hypoglycemia Flowsheets (Taken 05/01/2025 1130 by Rocío Crandall RN) Hypoglycemia Management: blood glucose monitored Problem: Comorbidity Management Goal: Maintenance of Asthma Control 05/03/20251841 by Kylee Gonzalez RN Outcome: Ongoing, Progressing 05/03/20251841 by Kylee Gonzalez RN Outcome: Ongoing, Progressing Intervention: Maintain Asthma Symptom Control Flowsheets (Taken 05/01/2025 1130 by Rocío Crandall, RN) Medication Review/Management: medications reviewed high-risk medications identified Goal: Maintenance of Behavioral Health Symptom Control 05/03/20251841 by Kylee Gonzalez RN Outcome: Ongoing, Progressing 05/03/20251841 by Kylee Gonzalez RN Outcome: Ongoing, Progressing Intervention: Maintain Behavioral Health Symptom Control Flowsheets (Taken 05/01/2025 1130 by Rocío Crandall, RN) Medication Review/Management: medications reviewed high-risk medications identified Goal: Maintenance of COPD Symptom Control 05/03/20251841 by Kylee Gonzalez RN Outcome: Ongoing, Progressing 05/03/20251841 by Kylee Gonzalez RN Outcome: Ongoing, Progressing Goal: Blood Glucose Level Within Target Range 05/03/20251841 by Kylee Gonzalez RN Outcome: Ongoing, Progressing 05/03/20251841 by Kylee Gonzalez RN Outcome: Ongoing, Progressing Goal: Maintenance of Heart Failure Symptom Control 05/03/20251841 by Kylee Gonzalez RN Outcome: Ongoing, Progressing 05/03/20251841 by Kylee Gonzalez RN Outcome: Ongoing, Progressing Intervention: Maintain Heart Failure Management Flowsheets (Taken 05/01/2025 1130 by Rocío Crandall RN) Medication Review/Management: medications reviewed high-risk medications identified Goal: Blood Pressure in Desired Range 05/03/20251841 by Kylee Gonazlez RN Outcome: Ongoing, Progressing 05/03/20251841 by Kylee Gonzalez RN Outcome: Ongoing, Progressing Goal: Maintenance of Osteoarthritis Symptom Control 05/03/20251841 by Kylee Gonzalez RN Outcome: Ongoing, Progressing 05/03/20251841 by Kylee Gonzalez RN Outcome: Ongoing, Progressing Intervention: Maintain Osteoarthritis Symptom Control Flowsheets Taken 05/03/20251841 by Kylee Gonzalez RN Activity Management: activity encouraged activity adjusted per tolerance up in chair Assistive Device Utilized: lift device Taken 05/01/2025 1130 by Rocío Crandall RN Medication Review/Management: medications reviewed high-risk medications identified Goal: Bariatric Home Regimen Maintained 05/03/20251841 by Kylee Gonzalez RN Outcome: Ongoing, Progressing 05/03/20251841 by Kylee Gonzalez RN Outcome: Ongoing, Progressing Intervention: Maintain and Manage Postbariatric Surgery Care Flowsheets (Taken 05/01/2025 1130 by Rocío Crandall, RN) Medication Review/Management: medications reviewed high-risk medications identified Goal: Maintenance of Seizure Control 05/03/20251841 by Kylee Gonzalez RN Outcome: Ongoing, Progressing 05/03/20251841 by Kylee Gonzalez RN Outcome: Ongoing, Progressing Intervention: Maintain Seizure Symptom Control Flowsheets (Taken 05/01/2025 1130 by Rocío Crandall RN) Medication Review/Management: medications reviewed high-risk medications identified Problem: Wound Goal: Optimal Coping 05/03/20251841 by Kylee Gonzalez RN Outcome: Ongoing, Progressing 05/03/20251841 by Kylee Gonzalez RN Outcome: Ongoing, Progressing Goal: Optimal Pain Control and Function 05/03/20251841 by Kylee Gonzalez RN Outcome: Ongoing, Progressing 05/03/20251841 by Kylee Gonzalez RN Outcome: Ongoing, Progressing Goal: Optimal Wound Healing 05/03/20251841 by Kylee Gonzalez RN Outcome: Ongoing, Progressing 05/03/20251841 by Kylee Gonzalez RN Outcome: Ongoing, Progressing Problem: Pain Acute Goal: Optimal Pain Control and Function 05/03/20251841 by Kylee Gonzalez RN Outcome: Ongoing, Progressing 05/03/20251841 by Kylee Gonzalez RN Outcome: Ongoing, Progressing * Progress Notes - Leidy Velasco MD - 05/03/2025 12:25 PM EDT Images from the original note were not included. [facility] Department of Surgery Division of Vascular Surgery 05/03/25 Gonzalo Smalls Subjective Subjective: HPI Gonzalo Smalls is an 49 y.o. male admitted 04/27/2025 with Dx: Diabetic foot ulcer Operations: 05/01/2025 R 5th ray amputation Cinthia AC/AP: Xarelto (Held 04/29) Pulse Exam: Right DP and PT biphasic by Doppler Ongoing Acute Problems: Wound care Chronic Problems: CHF (EF 55% in 2021), paroxsymal atrial fibrillation (on Xarelto), HTN, HLD, T2DM, COPD, QUINN on 2LNC Comments: Wound care Edited by: Paula Martinez MD at 05/01/2025 1018 Interval Hx: The patient reports he has been doing well since surgery. He denies any pain in the right foot. He has had no other difficulties since surgery. He is eating and drinking well. Review of Systems: Relevant review of systems was obtained as able and is negative unless stated above in HPI. Objective Objective: Vital signs: Vitals: 05/03/25 1216 BP: (!) 147/75 Pulse: 74 Resp: Temp: 36.7 ??C (98 ??F) SpO2: 96% Physical Exam: Physical Exam Constitutional: General: He is not in acute distress. HENT: Head: Normocephalic and atraumatic. Eyes: Pupils: Pupils are equal, round, and reactive to light. Cardiovascular: Rate and Rhythm: Normal rate. Pulmonary: Effort: Pulmonary effort is normal. No respiratory distress. Comments: On room air Musculoskeletal: Comments: Right foot with amputation of the 5th toe, wound bed looks clean and dry, there is no evidence of infection and no obvious drainage Neurological: Mental Status: He is alert and oriented to person, place, and time. Mental status is at baseline. Psychiatric: Mood and Affect: Mood normal. Behavior: Behavior normal. Intake/Output Summary (Last 24 hours) at 05/03/2025 1225 Last data filed at 05/03/2025 1100 Gross per 24 hour Intake 3510 ml Output 8650 ml Net -5140 ml Lines/Drains/Tubes: Patient Lines/Drains/Airways Status Active Airway None Output by Drain (mL) 05/01/25 0700 - 05/01/25 1859 05/01/25 1900 - 05/02/25 0659 05/02/25 0700 - 05/02/25 1859 05/02/25 1900 - 05/03/25 0659 05/03/25 07 - 05/03/25 1225 Requested LDAs do not have output data documented. Labs in last 18 hours: CBC WBC 6.86 Hb 8.9 (L) Plt 202 Hct 29.2 (L) ANC 4.85 INR ??, PTT ??, Anti-Xa ?? MCV 76 (L) BMP Na 136 Cl 90 (L) BUN 15 Glu 399 (H) K 3.6 Co2 37 (H) Cr 0.78 Ca 9.0 iCa ?? Mg 1.7 (L), Phos 3.6 Lactate ?? LFT AST ?? AlkPhos ?? T Prot ?? ALK ?? Bili ?? Alb ?? D.Bili ?? Lab Trends: H/H Results from last 7 days Lab Units 05/03/25 0316 05/02/25 0310 05/01/25 0214 HEMOGLOBIN g/dL 8.9* 8.8* 9.8* HEMATOCRIT % 29.2* 29.3* 32.5* INR Results from last 7 days Lab Units 04/28/25 0813 INR 1.4* Cr Results from last 7 days Lab Units 05/03/25 0316 05/02/25 0310 05/01/25 0214 CREATININE mg/dL 0.78 0.73 0.71 Lactate No lab exists for component: LACTTEVEN Radiographic Interpretation: No imagining today. Medications reviewed. Vital signs reviewed. Labs reviewed. Assessment/Plan Assessment and Plan: Gonzalo Smalls is an 49 y.o. male who presented to [facility] 04/27/2025 with diabetic foot ulcer now s/pamputation of the right 5th toe. Patient has been doing well with minimal pain. Wound VAC was placed today by the vascular surgery team. The bed was laid with Adaptic and covered with overlying blackfoam. Next wound VAC change should be in 2 days. Wound care can be taken up by nursing staff were de dicated wound care team. The vascular surgery team we will sign off at this time but are available for any questions or concerns. Mr. Smalls will follow up in [address] Vicente for evaluation of wound healing. 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 Plan Today: - Wound vac placed, should be changed every two days - vascular surgery to sign off - pt to follow up in clinic in [address] Vicente Dispo: Continue Current Level of Care per primary team Leidy Velasco MD Cosigned by Mary Vicente MD at 05/03/2025 2:31 PM EDT Associated attestation - Mary Vicente MD - 05/03/2025 2:31 PM EDT I saw and evaluated the patient with the resident/fellow. I discussed the case with the resident/fellow and agree with the findings and plan as documented. * Progress Notes - Mayra Apodaca RN - 05/03/2025 11:50 AM EDT Case Management Adult Progress Note Gonzalo Smalls 49 y.o. male CSN: [id number] Admission: 04/27/2025 9:29 PM Primary Problem: Diabetic foot ulcer Anticipated Discharge Date: TBD Has Discharge Plans Changed? No Medicare Second Notice: Greater than 2 days before discharge Medically Ready for Discharge: Anticipated in 5+ Days Additional Comments Patient admitted for worsening right diabetic foot ulcer. Vascular surgery consulted. Patient s/p debridement and toe amputation on 05/01. ID consulted. Endocrine following. Per MD patient is not medically ready for discharge. Patient s/p wound debridement and toe amputation on 05/01. Vascular placed wound vac on foot on 05/03. ID consulted for IV abx duration. Awaiting final recs. PT/OT recommend acute rehab. RNCM will continue to monitor for further discharge needs. Mayra Apodaca RN * Significant Event - Leidy Velasco MD - 05/03/2025 9:55 AM EDT VAC Indication: surgical wound Consent Obtained: Yes Patient Hand Hygiene: Hand hygiene performed. Clean prep and drape was performed per hospital policy. Sedation: was not administered Local Anesthetic: was not administered Foam Removed: First placement Wound Appearance: clean, good granulation tissue, healing Wound Dimensions: 12 cm x 7 cm x 0.5 cm Foam Applied: Black Polyurethane Foam, adaptiq non-stick dressing underneath Therapy: continuous negative pressure at 125mmHg. Disposition: Procedure completed without difficulty Patient tolerated the procedure well no complications * Progress Notes - Janelle Phan PA - 05/03/2025 9:52 AM EDT Images from the original note were not included. BONE & JOINT INFECTIOUS DISEASE PROGRESS NOTE 05/03/2025 SUBJECTIVE: NAEO, patient seen and evaluated this morning while resting in bed. He continues to have productivecough but denies any worsening difficulty breathing, chills, or sweats. States that multiple familymembers have had some type of viral illness. He is tolerating antibiotics well. Reviewed that pathology is still pending and anticipated plans to adjust antibiotics. He otherwise in his any changes in bowel habits were complications of antibiotics. All questions and concerns addressed with patient and family at bedside. REVIEW OF SYSTEMS: Complete 14 point review of systems is negative except for positives documented in HPI/subjective MEDICATIONS: Current Medications[1] ALLERGIES: Allergies[2] PHYSICAL EXAM: GEN: Chronically ill-appearing, obese male, lying in bed in NAD SKIN: Wound VAC to right lateral foot, no surrounding erythema. Chronic BLE venous stasis changes. Skin is otherwise warm, well-perfused, no rashes or lesions on exposed skin. EYES: Sclera anicteric, EOMI HENT: NCAT, neck supple, full ROM, mmm CHEST: Atraumatic, symmetric chest rise HEART: Regular rate and rhythm, no appreciable murmur LUNGS: Good air movement, lungs are CTAB, unlabored on RA GI: Abdomen obese, soft, non-tender, appears non-distended, bowel sounds noted in all four quadrants VASC: No cyanosis, chronic BLE edema, peripheral pulses 2+ MSK: Right foot as above, otherwise no obvious deformities NEURO: A&OX3, no acute focal neurological deficits noted PSYCH: Appropriate mood and affect VITAL SIGNS: Patient Vitals for the past 24 hrs: BP Temp Temp src Pulse Resp SpO2 Weight 05/03/25 0809 (!) 147/73 36.6 ??C (97.8 ??F) -- 81 -- 97 % -- 05/03/25 0600 -- -- -- -- -- -- (!) 249 kg (548 lb 1 oz) 05/03/25 0508 129/77 36.5 ??C (97.7 ??F) Oral 69 18 96 % -- 05/02/25 2326 134/79 36.8 ??C (98.2 ??F) Oral 68 16 93 % -- 05/02/25 2011 128/75 37 ??C (98.6 ??F) Oral 78 16 97 % -- 05/02/25 1516 136/79 36.7 ??C (98.1 ??F) Oral 87 16 95 % -- 05/02/25 1142 132/75 36.8 ??C (98.2 ??F) Oral 72 -- 97 % -- LABS: Labs in last 18 hours CBC WBC 6.86 Hb 8.9 (L) Plt 202 Hct 29.2 (L) ANC 4.85 INR ??, PTT ??, Anti-Xa ?? BMP Na 136 Cl 90 (L) BUN 15 Glu 399 (H) K 3.6 Co2 37 (H) Cr 0.78 Ca 9.0 iCa ?? Mg 1.7 (L), Phos 3.6 Lactate ?? LFT AST ?? AlkPhos ?? T Prot ?? ALK ?? Bili ?? Alb ?? D.Bili ?? Lab Results Component Value Date CRP 82.6 (H) 04/27/2025 CRP 9.2 02/18/2019 Lab Results Component Value Date CK 50 05/02/2025 CK 60 05/01/2025 CK 71 04/27/2025 CK 107 02/18/2019 Patient records reviewed and pertinent findings outlined below. IMAGING/STUDIES: CT Foot Right w IV Contrast Result Date: 04/28/2025 Impression: Soft tissue defect along the dorsal lateral foot and open, comminuted fracture and irregularity of the fifth metatarsal head. These findings are compatible with osteomyelitis. No discreteabscess. Exam limited by positioning. XR Foot Right 3+ Views Result Date: 04/27/2025 Impression: Chronic ulcer in the lateral forefoot. There is adjacent osseous destruction and erosions at the fifth MTP suggestive of osteomyelitis. ANTIMICROBIAL REVIEW: PO Metronidazole 05/03/25 - Present IV Cefepime 05/03/25 - Present IV Daptomycin 04/28/25 - Present IV Meropenem 04/28/25 - 05/03/25 MICROBIOLOGY: 04/28/25 MDR swab No MDRO isolated 04/27/25 Blood culture NGTD [facility] Culture Data: - 04/25/25: Blood culture NGTD - 04/25/25 Urine culture >100k E. Coli >100k GNR ADULT ID SCREENING: - Hepatitis A - IgG Negative (05/03/25) --> Not immune - Hepatitis B - sAb Negative (05/03/25) --> Not immune - sAg Negative (05/03/25) - Total core Ab Negative (05/03/25) - Hepatitis C - Ab Negative (04/27/25) - HIV - Ab Non-reactive (04/27/25) ASSESSMENT: Gonzalo Smalls is a 49 y.o. male with a PMH of T2DM c/b peripheral neuropathy, HTN, HLD, Afib, on Xarelto, morbid obesity, and QUINN who presented to on for evaluation of a right diabetic foot ulcer. Initial labs significant for leukocytosis of 12,000 and CRP 82.6. X-ray imaging of the right foot showed a lateral forefoot chronic ulcer with 5th MTP bony erosion and destruction. CT of the right foot with IV contrast demonstrated a ulcer to the dorsal and lateral aspect of the right foot with an open and comminuted 5th metatarsal head fracture consistent with osteomyelitis. Given concern for bony infection, ID bone and joint was consulted on 04/28/25 for evaluation. 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 coli - Type 2 Diabetes Mellitus c/b Peripheral Neuropathy - Hemoglobin A1c 8.9% - Complicates wound healing and treatment of infection - Patient would benefit from tight glucose control - Obesity - Body mass index is 76.9 kg/m??. - Complicates all aspects of care - Afib on Xarelto, HTN, HLD, QUINN RECOMMENDATIONS: - Discontinue Meropenem - Start renal dose equivalent Cefepime 2 g IV q8h - Start Metronidazole 500 mg PO q8h - Continue renal dose equivalent Daptomycin 1500 mg IV q24h (10 mg/kg by adjusted body weight) - Trend CBC w/ diff, CMP, CRP, and CK at least twice weekly while inpatient to monitor for toxicityand ensure appropriate response to treatment. - Follow for bony pathology, duration TBD - Recommend outpatient follow-up for Hepatitis A and Hepatitis B immunization series - Plan of care and recommendations discussed with patient's primary provider Thank you for allowing us to participate in this patient's care. ID will follow. Janelle Phan PA-C Division of Infectious Diseases Available by [employer] History, assessment, and plan discussed with ID attending, Dr. Chintan Doran The following complex inpatient infectious disease services were performed today: Complex antimicrobial therapy counseling and treatment [1] Current Facility-Administered Medications Medication Dose Route Frequency Provider Last Rate Last Admin acetaminophen (Tylenol) tablet 1,000 mg 1,000 mg Oral q6h PRN Marjorie Myers MD 1,000 mg at 05/02/252057 albuterol 108 (90 Base) MCG/ACT inhaler 2 puff 2 puff Inhalation q4h PRN Marjorie Myers MD atorvastatin (Lipitor) tablet 40 mg 40 mg Oral Nightly Marjorie Myers MD 40 mg at 05/02/252057 bisoprolol (Zebeta) tablet 5 mg 5 mg Oral BID Marjorie Myers MD 5 mg at 05/03/2523 bumetanide (Bumex) tablet 4 mg 4 mg Oral TID Marjorie Myers MD 4 mg at 05/03/25920 cariprazine (Vraylar) capsule 3 mg 3 mg Oral Daily Marjorie Myers MD 3 mg at 05/03/25922 DAPTOmycin (Cubicin) 1,500 mg in sodium chloride 0.9 % 100 mL IVPB 10 mg/kg (Adjusted) Intravenous q24h Marjorie Myers MD 280 mL/hr at 05/02/25 174 1,500 mg at 05/02/25 174 glucose (Glutose) 40 % oral gel 15-30 grams of glucose 15-30 grams of glucose Sublingual q15 min PRN Marjorie Myers MD Or dextrose 10 % (D10W) bolus 125 mL 125 mL Intravenous q15 min PRN Marjorie Myers MD Or dextrose 10 % (D10W) bolus 250 mL 250 mL Intravenous q15 min PRN Marjorie Myers MD Or glucagon (human recombinant) injection 1 mg 1 mg Intramuscular q15 min PRN Marjorie Myers MD dilTIAZem CD (Cardizem CD) 24 hr capsule 120 mg 120 mg Oral Daily Marjorie Myers MD 120 mg at 921 gabapentin (Neurontin) capsule 600 mg 600 mg Oral TID Marjorie Myers MD 600 mg at 05/03/25920 insulin lispro (Admelog) 100 units/mL injection - Correction - Very Resistant Dose 0-15 Units Subcutaneous TID with meals Marjorie Myers MD 12 Units at 05/03/25919 insulin lispro (Admelog) injection - Correction - Nighttime Dose 0-3 Units Subcutaneous Twice at night Marjorie Myers MD 3 Units at 05/03/25 0344 Insulin Lispro (Admelog, HumaLOG) 100 UNIT/ML injection 30 Units 30 Units Subcutaneous TID with meals Sarah Martinez, FITTING ROOM OPERATOR 30 Units at 05/03/25 09 Insulin Lispro (Admelog, HumaLOG) 100 UNIT/ML injection 6 Units 6 Units Subcutaneous BID PRN Sarah Martinez, FITTING ROOM OPERATOR insulin NPH (Isophane) (HumuLIN N,NovoLIN N) injection 42 Units 42 Units Subcutaneous BID Sarah Martinez APRN 42 Units at 05/03/25 0919 ipratropium-albuterol (Duo-Neb) 0.5-2.5 mg/3 mL nebulizer solution 3 mL 3 mL Nebulization q4h PRN Marjorie Myers MD Kyree powder 1 packet 1 packet Oral BID Diane Guzman MD 1 packet at 05/03/25 0934 LORazepam (Ativan) tablet 1 mg 1 mg Oral Daily PRN Marjorie Myers MD 1 mg at 04/30/25 203 magnesium oxide (Mag-Ox) tablet 800 mg 800 mg Oral Daily Diane Guzman MD 800 mg at 05/03/25 0922 magnesium sulfate IVPB 2 g 2 g Intravenous Once Diane Guzman MD 25 mL/hr at 05/03/25 0922 2 g at 05/03/25 0922 meropenem (Merrem) 2 g in sodium chloride 0.9 % 100 mL IVPB 2 g Intravenous q8h Marjorie Myers MD 50 mL/hr at 05/03/25 0400 2 g at 05/03/25 0400 miconazole (Micotin) 2 % powder Topical BID Diane Guzman MD Given at 05/03/25 0924 mupirocin (Bactroban) 2 % ointment 1 Application 1 Application Each Nostril BID Marjorie Myers MD 1 Application at 05/03/25 0922 oxyCODONE (Roxicodone) immediate release tablet 5 mg 5 mg Oral q4h PRN Marjorie Myers MD 5 mg at 05/03/25 0459 pantoprazole (Protonix) EC tablet 40 mg 40 mg Oral Daily before breakfast Marjorie Myers MD 40 mg at 05/03/25 0934 polyethylene glycol (Miralax) packet 17 g 17 g Oral Daily Marjorie Myers MD 17 g at 05/03/25 0921 rivaroxaban (Xarelto) tablet 20 mg 20 mg Oral Daily with dinner Diane Guzman MD 20 mg at 05/02/25 1731 sodium chloride 0.9 % flush 10 mL 10 mL Intravenous q12h Marjorie Myers MD 10 mL at 05/02/25 1812 And sodium chloride 0.9 % flush 10 mL 10 mL Intravenous PRN Marjorie Myers MD spironolactone (Aldactone) tablet 100 mg 100 mg Oral Daily Marjorie Myers MD 100 mg at 05/03/25921 tamsulosin (Flomax) 24 hr capsule 0.4 mg 0.4 mg Oral Daily Marjorie Myers MD 0.4 mg at 05/03/25921 traZODone (Desyrel) tablet 100 mg 100 mg Oral Nightly Marjorie Myers MD 100 mg at 05/02/252057 venlafaxine XR (Effexor-XR) 24 hr capsule 150 mg 150 mg Oral Daily Marjorie Myers MD 150 mg at 05/03/25 09 [2] Allergies Allergen Reactions Vancomycin Other - please document in the comment field Red man syndrome * Progress Notes - Diane Guzman MD - 05/03/2025 8:40 AM EDT Subjective No complaints this morning. Not bothered by cough enough to take medicine for it but glad he did not catch a bug from his daughter Review of Systemsper HPI Objective Vitals Temp: [36.5 ??C (97.7 ??F)-37 ??C (98.6 ??F)] 36.6 ??C (97.8 ??F) Heart Rate: [68-87] 81 Resp: [16-18] 18 BP: (128-147)/(73-79) 147/73 Physical Exam Vitals reviewed. Constitutional: Appearance: Normal appearance. He is obese. HENT: Head: Normocephalic and atraumatic. Nose: Nose normal. Mouth/Throat: Mouth: Mucous membranes are moist. Eyes: Extraocular Movements: Extraocular movements intact. Cardiovascular: Rate and Rhythm: Normal rate. Pulmonary: Effort: Pulmonary effort is normal. Abdominal: General: Abdomen is flat. Musculoskeletal: General: Normal range of motion. Cervical back: Normal range of motion. Comments: R foot bandage c/d/I Skin: General: Skin is warm. Neurological: General: No focal deficit present. Mental Status: He is alert and oriented to person, place, and time. Psychiatric: Mood and Affect: Mood normal. Behavior: Behavior normal. Labs in last 18 hours CBC WBC 6.86 Hb 8.9 (L) Plt 202 Hct 29.2 (L) ANC 4.85 INR ??, PTT ??, Anti-Xa ?? BMP Na 136 Cl 90 (L) BUN 15 Glu 399 (H) K 3.6 Co2 37 (H) Cr 0.78 Ca 9.0 iCa ?? Mg 1.7 (L), Phos 3.6 Lactate ?? LFT AST ?? AlkPhos ?? T Prot ?? ALK ?? Bili ?? Alb ?? D.Bili ?? 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 49 yo gentleman with obesity and T2DM admitted for R diabetic foot ulcer with osteomyelitis now s/pR 5th metatarsal amputation on 05/01 with ID and vascular following currently on dapto and meropenem per ID recs #Diabetic foot ulcer with 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 - P/w worsening wound R foot found to have elevated inflammatory markers and CT showing possible OMunable to do MRI 2/2 weight - Consults: vascular, ID - S/p amputation 05/01 - Remains afebrile, HDS - Stable hgb post-op - Adult ID screening labs, needs hep B vaccine Plan: - Continue daptomycin renally dosed per ID recs pending cx data - Transition from meropenem to cefepime, metronidazole - Continue meropenem, daptomycin renally dosed per ID pending operative culture data - Twice weekly labs #DM #Poorly controlled #Hyperglycemia - Home regimen 200 BID - BG ranges 300s - Hospital regimen NPH 42 BID, 30 TID, 6 BID PRN - Endocrine following, appreciate recs #Urinary retention s/p barber - Barber care per protocol - Continue home flomax #Chronic HTN-BB AF-AC, dilt HF-bumex, gracie HLD-statin COPD-inhalers A/D-vraylar, lorazepam, venlafaxine Insomnia-trazadone GERD--PPI QUINN-?CPAP Obesity-complicates care Diet-carb 1 DVT PPX AC FULL CODE Medically Ready for Discharge:Anticipated in 5+ Days * Progress Notes - Sarah Martinez, FITTING ROOM OPERATOR - 05/03/2025 7:55 AM EDT Endocrine - Diabetes Progress Note: Subjective: 24 hour update: -AM BG 339 -s/p toe amputation 05/01 -PO intake good with meals. Ate most of breakfast, mom brought him a fruit plate also that he ate around 11am. BG for lunch checked shortly after at 11:36 -continues with snacking overnight, ate ritz crackers and goldfish. Snack dose not utilized -no questions or concerns regarding diabetes regimen at this time I have independently reviewed and interpreted the patient's blood glucose levels in Epic timeline, labs, vitals, and insulin doses administered in the electronic medical record. Review of Systems Constitutional: Negative for chills and fever. Respiratory: Negative for cough and shortness of breath. Cardiovascular: Negative for chest pain and leg swelling. Gastrointestinal: Negative for diarrhea, nausea and vomiting. Skin: Positive for wound. Negative for pallor. Neurological: Negative for dizziness and weakness. Psychiatric/Behavioral: Negative for confusion and decreased concentration. Objective: Physical Exam Vitals and nursing note reviewed. Constitutional: General: He is not in acute distress. Appearance: Normal appearance. He is obese. HENT: Head: Normocephalic. Nose: Nose normal. Mouth/Throat: Mouth: Mucous membranes are moist. Eyes: Extraocular Movements: Extraocular movements intact. Conjunctiva/sclera: Conjunctivae normal. Cardiovascular: Rate and Rhythm: Normal rate. Pulmonary: Effort: Pulmonary effort is normal. No respiratory distress. Abdominal: General: Abdomen is flat. Palpations: Abdomen is soft. Skin: General: Skin is warm and dry. Neurological: General: No focal deficit present. Mental Status: He is alert and oriented to person, place, and time. Psychiatric: Mood and Affect: Mood normal. Behavior: Behavior normal. Thought Content: Thought content normal. BP 129/77 (BP Location: Right arm, Patient Position: Lying) Pulse 69 Temp 36.5 ??C (97.7 ??F) (Oral) Resp 18 Ht 1.829 m (6') Wt (!) 249 kg (548 lb 1 oz) BMI 74.33 kg/m?? Medications: Current Scheduled Medications[1] Current Continuous Medications[2] Current PRN Medications[3] Lab Review: Results from last 7 days Lab Units 05/03/25 0316 SODIUM mmol/L 136 POTASSIUM mmol/L 3.6 CHLORIDE mmol/L 90* CO2 mmol/L 37* BUN mg/dL 15 CREATININE mg/dL 0.78 EGFR mL/min/1.73m*2 110.7 GLUCOSE mg/dL 399* CALCIUM mg/dL 9.0 Results from last 7 days Lab Units 05/03/25 0316 WBC 10*3/uL 6.86 HEMOGLOBIN g/dL 8.9* HEMATOCRIT % 29.2* PLATELETS 10*3/uL 202 Lab Results Component Value Date GLUCOSE 399 (H) 05/03/2025 GLUCOSE 358 (H) 05/02/2025 GLUCOSE 266 (H) 05/01/2025 PGLU 372 (H) 05/03/2025 PGLU 325 (H) 05/02/2025 PGLU 250 (H) 05/02/2025 PGLU 278 (H) 05/02/2025 PGLU 283 (H) 05/02/2025 PGLU 320 (H) 05/02/2025 PGLU 316 (H) 05/01/2025 PGLU 294 (H) 05/01/2025 Lab Results Component Value Date HGBA1C 8.9 (H) 04/29/2025 Diet: Dietary Orders (From admission, onward) Start Ordered 05/02/25 1413 Adult diet Diet texture: Regular; Carbohydrate restriction: Consistent Carb 2 (80 gmmax/meal); Sodium restriction: 2,000 mg Na Diet effective now References: IDDSI Diet Texture Guide Question Answer Comment Diet texture Regular Carbohydrate restriction: Consistent Carb 2 (80 gm max/meal) Sodium restriction: 2,000 mg Na 05/02/25 1413 Assessment: Gonzalo Smalls is a 49 y.o. male with hx of CHF, HTN, HLD, a.fib, type 2 DM [on U500 insulin], COPD, QUINN on nightly oxygen, recurrent UTIs, BPH, morbid obesity, and anxiety/depression. Patient presented to ED for evaluation of worsening right diabetic foot ulcer. Mr. Smalls presented to an OSH and Podiatry they are recommended to coming to for evaluation due to his size and delayed abilityto get him in the OR. Of note, Mr. Smalls is receiving enteral panel for recurrent UTI and has a chronic Barber. Per chart review it appears that the kidney infection is for ESBL E coli. ED lab work was significant for leukocytosis, anemia, hyperglycemia, hypokalemia, hypomagnesemia, elevated CRP and sed rate. 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 Hospital medicine was consulted for admission. Endocrine Diabetes team was consulted for glycemic management on 04/28/25. Patient on U500 insulin dosing at home. Primary team requests recommendations and orders Daily Glucose and Insulin Total Daily Dose -consulted 04/28 AM BG 199 -04/30: 173-226, TDD 114 units -05/01: 222-316, TDD 133 units -05/02: 250-358, TDD 180 units Diagnoses #DM, type 2, uncontrolled -A1c: 8.9 on admission -Home regimen: U500 insulin: prescription for 225 units BID patient reports taking 200 units BID --> first dispensed 03/24/2025 - last dispensed 04/24/2025. insulin pen Ozempic - recently started increased dose 0.5 mg this past week Metformin 100 mg BID -Elevated HgA1C levels impact all body systems with increased risk for worsening of conditions including renal function, heart disease, eye disease, neuropathy, foot ulcerations, lower extremity amputation, gastroparesis, and overall increased risk for mortality #diabetic foot ulcer -s/p right 4th and 5th toe amputation #anemia Lab Results Component Value Date HGB 8.9 (L) 05/03/2025 -can lead to false low A1c. Must rely on intensive monitoring of glucose #obesity -leads to insulin resistance -complicating all aspects of care Plan -After review of glucose trends and insulin delivery over the last 24 hours, titration of intensiveinsulin therapy was made to overall improve glycemic control and improve patient outcomes Current Insulin Regimen: Basal: 42 units NPH BID - increase to 50 units Bolus: 24 units lispro with meals - increase to 30 units Correction: very resistant correction with CF 3:50>150 AC and 1:50>250 HS, 0300 Snack dose: 8 units lispro PRN for overnight snacking -continue to assess blood glucose trends and adjust basal/bolus insulin therapy dose accordingly -continue intensive glucose monitoring due to increased risk for hyper/hypoglycemia secondary to insulin therapy -fsbg ac/hs when eating, q6h when NPO, on TF/TPN -correction insulin to be given for hyperglycemia, do not hold correction if patient does not eat -hypoglycemia protocol in place -please document the percentage of meals consumed in intake and output flowsheet -please notify us when diet orders change or steroids added as this impacts our treatment -plan and management discussed with patient, family member NOTE: -Patient utilizes U500 insulin pen at home. With the U500 pen, a conversion is not needed. Typically patient's required a 70% reduction in home U500 dosing. 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 Please notify us as patient nears discharge for final recommendations Please contact Sarah Martinez APRN via secure chat or page us at [phone] during 7a-7p, Thursday-Thursday. For after hours please contact the on-call Endocrine Fellow. Thank you for the opportunity to participate in this patient's care. Time Spent: I personally spent a total of 35 minutes on this encounter. This time includes face to face with patient, counseling and discussion and/or coordination of care. [1] atorvastatin, 40 mg, Oral, Nightly bisoprolol, 5 mg, Oral, BID bumetanide, 4 mg, Oral, TID cariprazine, 3 mg, Oral, Daily DAPTOmycin, 10 mg/kg (Adjusted), Intravenous, q24h dilTIAZem CD, 120 mg, Oral, Daily gabapentin, 600 mg, Oral, TID insulin lispro, 0-15 Units, Subcutaneous, TID with meals insulin lispro, 0-3 Units, Subcutaneous, Twice at night Insulin Lispro, 24 Units, Subcutaneous, TID with meals insulin NPH (Isophane), 42 Units, Subcutaneous, BID Kyree, 1 packet, Oral, BID magnesium oxide, 800 mg, Oral, Daily meropenem, 2 g, Intravenous, q8h miconazole, , Topical, BID mupirocin, 1 Application, Each Nostril, BID pantoprazole, 40 mg, Oral, Daily before breakfast polyethylene glycol, 17 g, Oral, Daily rivaroxaban, 20 mg, Oral, Daily with dinner sodium chloride, 10 mL, Intravenous, q12h spironolactone, 100 mg, Oral, Daily tamsulosin, 0.4 mg, Oral, Daily traZODone, 100 mg, Oral, Nightly venlafaxine XR, 150 mg, Oral, Daily [2] [3] PRN medications: acetaminophen, albuterol, glucose OR dextrose 10 % OR dextrose 10 % OR glucagon (human recombinant), Insulin Lispro, ipratropium-albuterol, LORazepam, oxyCODONE, Insert peripheral IV AND Saline lock IV AND sodium chloride AND sodium chloride * Progress Notes - Alejandra Arndt MD - 05/03/2025 7:51 AM EDT Images from the original note were not included. [facility] Department of Surgery Division of Vascular Surgery Surgery Progress Note 05/03/25 Gonzalo Smalls Subjective Subjective: HPI Dx: Diabetic foot ulcer Operations: 05/01/2025 R 5th ray amputation Cinthia AC/AP: Xarelto (Held 04/29) Pulse Exam: Right DP and PT biphasic by Doppler Ongoing Acute Problems: Wound care Chronic Problems: CHF (EF 55% in 2021), paroxsymal atrial fibrillation (on Xarelto), HTN, HLD, T2DM, COPD, QUINN on 2LNC Comments: Wound care Edited by: Paula Martinez MD at 05/01/2025 1018 Interval hx: no acute events overnight. Pain is well controlled. Review of Systems: Relevant review of systems was obtained as able and is negative unless stated above in HPI. Objective Objective: Vital signs: Vitals: 05/03/25 0508 BP: 129/77 Pulse: 69 Resp: 18 Temp: 36.5 ??C (97.7 ??F) SpO2: 96% Physical Exam: GEN: No apparent distress. Resting comfortably in bed. NEURO: Awake, alert and oriented x3. No focal deficits. HENT: NCAT. Trachea appears midline. CV: Appears well-perfused. Normal rate. RESP: Symmetric chest rise. Non-labored breathing. MSK: RLE with bandage on the foot and ankle. He has intact motor of the right foot. There is no blood or drainage on the dressing. SKIN: Warm and dry. Without pallor. Incisions: covered Intake/Output Summary (Last 24 hours) at 05/03/2025 0751 Last data filed at 05/03/2025 0000 Gross per 24 hour Intake 3540 ml Output 7750 ml Net -4210 ml Lines/Drains/Tubes: Patient Lines/Drains/Airways Status Active Airway None Output by Drain (mL) 05/01/25 0700 - 05/01/25 1859 05/01/25 1900 - 05/02/25 0659 05/02/25 0700 - 05/02/25 1859 05/02/25 1900 - 05/03/25 0659 05/03/25 0700 - 05/03/25 0751 Requested LDAs do not have output data documented. Labs in last 18 hours: CBC WBC 6.86 Hb 8.9 (L) Plt 202 Hct 29.2 (L) ANC 4.85 INR ??, PTT ??, Anti-Xa ?? MCV 76 (L) BMP Na 136 Cl 90 (L) BUN 15 Glu 399 (H) K 3.6 Co2 37 (H) Cr 0.78 Ca 9.0 iCa ?? Mg 1.7 (L), Phos 3.6 Lactate ?? LFT AST ?? AlkPhos ?? T Prot ?? ALK ?? Bili ?? Alb ?? D.Bili ?? Lab Trends: H/H Results from last 7 days Lab Units 05/03/25 0316 05/02/25 0310 05/01/25 0214 HEMOGLOBIN g/dL 8.9* 8.8* 9.8* HEMATOCRIT % 29.2* 29.3* 32.5* INR Results from last 7 days Lab Units 04/28/25 0813 INR 1.4* Cr Results from last 7 days Lab Units 05/03/25 0316 05/02/25 0310 05/01/25 0214 CREATININE mg/dL 0.78 0.73 0.71 Medications reviewed. Vital signs reviewed. Labs reviewed. Assessment/Plan Assessment and Plan: Gonzalo Smalls is a 49-year-old male with a past medical history notable for class III obesity, CHF (EF 55% in 2021), paroxysmal atrial fibrillation (on Xarelto), HTN, HLD, T2DM, COPD, and QUINN on 2LNC at night, who initially presented with a nonhealing right foot wound. He is now status post right 5th toe ray amputation on 05/01 for osteomyelitis. Postoperatively, the patient is doing well. The surgical site is clean, dry, and intact with no evidence of erythema, drainage, Pain is well-controlled. Vitals stable. No signs of acute infection or ischemia. Wound vac applied today. Plan: -F/U on Surg path -Continue on wound vac -Vascular will continue to follow Dispo: Continue Current Level of Care Alejandra Arndt MD Cosigned by Mary Vicente MD at 05/03/2025 2:31 PM EDT Associated attestation - Mary Vicente MD - 05/03/2025 2:31 PM EDT I saw and evaluated the patient with the resident/fellow. I discussed the case with the resident/fellow and agree with the findings and plan as documented. * Care Plan - Aime Gill RN - 05/02/2025 11:45 PM EDT Problem: Skin Injury Risk Increased Goal: Skin Health and Integrity Outcome: Ongoing, Progressing Problem: Adult Inpatient Plan of Care Goal: Plan of Care Review Outcome: Ongoing, Progressing Flowsheets (Taken 05/02/20251819 by Santy Garcia, RN) Progress: improving Plan of Care Reviewed With: patient Goal: Patient-Specific Goal (Individualized) Outcome: Ongoing, Progressing Flowsheets (Taken 05/02/20252000) Patient/Family-Specific Goals (Include Timeframe): Patient will remain free of falls/injury this shift Individualized Care Needs: ADL assistance Anxieties, Fears or Concerns: None Goal: Absence of Hospital-Acquired Illness or Injury Outcome: Ongoing, Progressing Goal: Optimal Comfort and Wellbeing Outcome: Ongoing, Progressing Problem: Fall Injury Risk Goal: Absence of Fall and Fall-Related Injury Outcome: Ongoing, Progressing Problem: Infection Goal: Absence of Infection Signs and Symptoms Outcome: Ongoing, Progressing Problem: Mobility Impairment Goal: Optimal Mobility Outcome: Ongoing, Progressing Problem: Mobility Impairment Goal: Optimal Mobility Outcome: Ongoing, Progressing Problem: Diabetes Goal: Optimal Coping Outcome: Ongoing, Progressing Goal: Optimal Functional Ability Outcome: Ongoing, Progressing Goal: Blood Glucose Level Within Target Range Outcome: Ongoing, Progressing Goal: Minimize Hypoglycemia Risk Outcome: Ongoing, Progressing Problem: Comorbidity Management Goal: Maintenance of Asthma Control Outcome: Ongoing, Progressing Goal: Maintenance of Behavioral Health Symptom Control Outcome: Ongoing, Progressing Goal: Maintenance of COPD Symptom Control Outcome: Ongoing, Progressing Goal: Blood Glucose Level Within Target Range Outcome: Ongoing, Progressing Goal: Maintenance of Heart Failure Symptom Control Outcome: Ongoing, Progressing Goal: Blood Pressure in Desired Range Outcome: Ongoing, Progressing Goal: Maintenance of Osteoarthritis Symptom Control Outcome: Ongoing, Progressing Goal: Bariatric Home Regimen Maintained Outcome: Ongoing, Progressing Goal: Maintenance of Seizure Control Outcome: Ongoing, Progressing Problem: Wound Goal: Optimal Coping Outcome: Ongoing, Progressing Goal: Optimal Pain Control and Function Outcome: Ongoing, Progressing Goal: Optimal Wound Healing Outcome: Ongoing, Progressing Problem: Pain Acute Goal: Optimal Pain Control and Function Outcome: Ongoing, Progressing * Care Plan - Santy Garcia, RN - 05/02/2025 6:21 PM EDT Problem: Skin Injury Risk Increased Goal: Skin Health and Integrity Outcome: Ongoing, Progressing Intervention: Optimize Skin Protection Flowsheets Taken 05/02/20251819 by Santy Garcia, RN Activity Management: activity adjusted per tolerance Skin Protection: incontinence pads utilized Taken 05/02/2025 1259 by Jeevan Shah RN Head of Bed (HOB) Positioning: HOB at 30 degrees Problem: Adult Inpatient Plan of Care Goal: Plan of Care Review Outcome: Ongoing, Progressing Flowsheets (Taken 05/02/2025 1820) Progress: improving Plan of Care Reviewed With: patient Goal: Patient-Specific Goal (Individualized) Outcome: Ongoing, Progressing Goal: Absence of Hospital-Acquired Illness or Injury Outcome: Ongoing, Progressing Goal: Optimal Comfort and Wellbeing Outcome: Ongoing, Progressing Problem: Mobility Impairment Goal: Optimal Mobility Outcome: Ongoing, Progressing Problem: Infection Goal: Absence of Infection Signs and Symptoms Outcome: Ongoing, Progressing Intervention: Prevent or Manage Infection Flowsheets (Taken 05/02/20251819) Fever Reduction/Comfort Measures: lightweight clothing Isolation Precautions: protective Problem: Mobility Impairment Goal: Optimal Mobility Outcome: Ongoing, Progressing Problem: Comorbidity Management Goal: Maintenance of Asthma Control Outcome: Ongoing, Progressing Goal: Maintenance of Behavioral Health Symptom Control Outcome: Ongoing, Progressing Goal: Maintenance of COPD Symptom Control Outcome: Ongoing, Progressing Goal: Blood Glucose Level Within Target Range Outcome: Ongoing, Progressing Goal: Maintenance of Heart Failure Symptom Control Outcome: Ongoing, Progressing Goal: Blood Pressure in Desired Range Outcome: Ongoing, Progressing Goal: Maintenance of Osteoarthritis Symptom Control Outcome: Ongoing, Progressing Goal: Bariatric Home Regimen Maintained Outcome: Ongoing, Progressing Goal: Maintenance of Seizure Control Outcome: Ongoing, Progressing * Care Plan - Kylee Gonzalez RN - 05/02/2025 4:00 PM EDT Problem: Skin Injury Risk Increased Goal: Skin Health and Integrity Outcome: Ongoing, Progressing Problem: Adult Inpatient Plan of Care Goal: Plan of Care Review Outcome: Ongoing, Progressing Flowsheets (Taken 05/02/20251819 by Santy Garcia, RN) Progress: improving Plan of Care Reviewed With: patient Goal: Patient-Specific Goal (Individualized) Outcome: Ongoing, Progressing Flowsheets (Taken 05/02/2025 1400) Patient/Family-Specific Goals (Include Timeframe): Pt will rate pain score less than 3 by end of shift. Individualized Care Needs: Pain control with PRN pain meds. Anxieties, Fears or Concerns: None stated Goal: Absence of Hospital-Acquired Illness or Injury Outcome: Ongoing, Progressing Goal: Optimal Comfort and Wellbeing Outcome: Ongoing, Progressing Problem: Fall Injury Risk Goal: Absence of Fall and Fall-Related Injury Outcome: Ongoing, Progressing Problem: Infection Goal: Absence of Infection Signs and Symptoms Outcome: Ongoing, Progressing Intervention: Prevent or Manage Infection Flowsheets Taken 05/02/20251819 by Santy Garcia, RN Fever Reduction/Comfort Measures: lightweight clothing Isolation Precautions: protective Taken 05/01/20250 by Rocío Crandall RN Infection Management: aseptic technique maintained Problem: Mobility Impairment Goal: Optimal Mobility Outcome: Ongoing, Progressing Intervention: Optimize Mobility Flowsheets Taken 05/02/20251819 by Santy Garcia, RN Activity Management: activity adjusted per tolerance Taken 05/01/20251129 by Rocío Crandall RN Positioning/Transfer Devices: pillows air-assisted device Problem: Mobility Impairment Goal: Optimal Mobility Outcome: Ongoing, Progressing Problem: Diabetes Goal: Optimal Coping Outcome: Ongoing, Progressing Intervention: Support Wellbeing and Self-Management Success Flowsheets (Taken 05/02/20251819 by Santy Garcia, RN) Supportive Measures: relaxation techniques promoted self-care encouraged self-reflection promoted Family/Support System Care: self-care encouraged Goal: Optimal Functional Ability Outcome: Ongoing, Progressing Intervention: Optimize Functional Ability Flowsheets Taken 05/02/20251819 by Santy Garcia, RN Activity Management: activity adjusted per tolerance Self-Care Promotion: independence encouraged Taken 05/01/20251129 by Rocío Crandall RN Activity Assistance Provided: lift team assistance assistance refused Goal: Blood Glucose Level Within Target Range Outcome: Ongoing, Progressing Goal: Minimize Hypoglycemia Risk Outcome: Ongoing, Progressing Intervention: Minimize and Manage Hypoglycemia Flowsheets (Taken 05/01/20251129 by Rocío Crandall RN) Hypoglycemia Management: blood glucose monitored Problem: Comorbidity Management Goal: Maintenance of Asthma Control Outcome: Ongoing, Progressing Goal: Maintenance of Behavioral Health Symptom Control Outcome: Ongoing, Progressing Goal: Maintenance of COPD Symptom Control Outcome: Ongoing, Progressing Goal: Blood Glucose Level Within Target Range Outcome: Ongoing, Progressing Goal: Maintenance of Heart Failure Symptom Control Outcome: Ongoing, Progressing Goal: Blood Pressure in Desired Range Outcome: Ongoing, Progressing Goal: Maintenance of Osteoarthritis Symptom Control Outcome: Ongoing, Progressing Goal: Bariatric Home Regimen Maintained Outcome: Ongoing, Progressing Goal: Maintenance of Seizure Control Outcome: Ongoing, Progressing Problem: Wound Goal: Optimal Coping Outcome: Ongoing, Progressing Intervention: Support Patient and Family Response Flowsheets (Taken 05/02/20250 by Santy Garcia, RN) Supportive Measures: relaxation techniques promoted self-care encouraged self-reflection promoted Family/Support System Care: self-care encouraged Goal: Optimal Pain Control and Function Outcome: Ongoing, Progressing Intervention: Prevent or Manage Pain Flowsheets Taken 05/02/20251954 Sleep/Rest Enhancement: awakenings minimized consistent schedule promoted family presence promoted Taken 05/02/2025 1754 Pain Management Interventions: medication (see MAR) Goal: Optimal Wound Healing Outcome: Ongoing, Progressing Intervention: Promote Wound Healing Flowsheets (Taken 05/02/20251954) Sleep/Rest Enhancement: awakenings minimized consistent schedule promoted family presence promoted Problem: Pain Acute Goal: Optimal Pain Control and Function Outcome: Ongoing, Progressing Intervention: Optimize Psychosocial Wellbeing Flowsheets (Taken 05/02/20251819 by Santy Garcia, RN) Supportive Measures: relaxation techniques promoted self-care encouraged self-reflection promoted * Care Plan - Jeevan Shah RN - 05/02/2025 1:00 PM EDT Problem: Skin Injury Risk Increased Goal: Skin Health and Integrity Outcome: Ongoing, Progressing Intervention: Optimize Skin Protection Flowsheets (Taken 05/02/2025 1259) Activity Management: activity adjusted per tolerance Pressure Reduction Devices: specialty bed utilized Head of Bed (HOB) Positioning: HOB at 30 degrees Note: See recs Patient evaluated by [facility] nurse, individualized recommendations placed and care plan interventions updated; see wound care note for details regarding recommendations to support optimal wound healing. * Progress Notes - Jeevan Shah RN - 05/02/2025 12:54 PM EDT Images from the original note were not included. Wound Care Consult Visit Date: 05/02/2025 Patient Name: Gonzalo Smalls Date of : 1975 Admit Date: 04/27/2025 Reason for Consult: IP Wound Orders (From admission, onward) Start Ordered 04/30/25 1437 Wound ostomy eval and treat 2 Wounds Associated Once Comments: Pictures available in chart Question: Instructions: Answer: Prior to sending evaluation & treat order, place wound/ostomy LDA, complete a wound/ostomy assessment, and consider taking a photograph to document. 04/30/25 1437 04/28/25 0703 Wound ostomy eval and treat Once Comments: Infectious Diabetic Foot Ulcer Clinical Pathway Patient Question: Reason for Consult? Answer: Infectious Diabetic Foot Ulcer Clinical Pathway Patient 04/28/25 0705 Wound History: admitted 04/27/2025 for worsening right diabetic foot ulcer with exposed bone, complicated by osteomyelitis, morbid obesity, and multiple comorbidities; underwent right 5th toe amputation on 05/01/2025 BMI 75 Wound Assessment: Wound Team Summary Assessment: pt assessment revealed pt with itching, blanchable maculopapular rash with satellite lesions consistent with irritant contact dermatitis with topical fungal component in groin folds and scrotum, recommend antifungal powder and polymem, bilat buttocks with blanchable erythema PTSL consistent with irritant contact dermatitis recommend cavalon zinc and off loading Vasc is managing pt's right foot wound at this time wound will defer to Vasc at this time. Wound Team Plan: no further follow needed at this time. Please re-consult if new issues or concerns Jeevan Shah RN [facility] 05/02/2025 12:54 PM * Query Clarification Note - Marjorie Myers MD - 05/02/2025 12:22 PM EDT Physician Clarification Based on the above, please provide the most appropriate diagnosis reflecting the patient's functional status: []Limitation of activities due to disability []Other reduced mobility [x]Other condition (please specify) right foot DM wound, morbid obesity This documentation will become part of the patient's medical record. * Progress Notes - Janelle Phan PA - 05/02/2025 10:50 AM EDT Images from the original note were not included. BONE & JOINT INFECTIOUS DISEASE PROGRESS NOTE 05/02/2025 SUBJECTIVE: NAEO, patient seen and evaluated this afternoon. He is tolerating antibiotics well. Endorses productive cough this morning. Multiple family members have viral illness, one with bronchitis. He is under respiratory rule out today but denies chills, sweats, or worsening SOA. Reivewed path pending and outside culture results. All questions and concerns addressed with patient at bedside. REVIEW OF SYSTEMS: Complete 14 point review of systems is negative except for positives documented in HPI/subjective MEDICATIONS: Current Medications[1] ALLERGIES: Allergies[2] PHYSICAL EXAM: GEN: Chronically ill-appearing, obese male, resting comfortably in bed SKIN: Right foot with clean, dry, intact surgical dressing. Skin is otherwise warm, well-perfused, no rashes or lesions on exposed skin. Chronic BLE venous stasis changes EYES: Sclera anicteric, EOMI HENT: NCAT, neck supple, full ROM, mmm CHEST: Atraumatic, symmetric chest rise HEART: Regular rate and rhythm, no appreciable murmur LUNGS: Good air movement, lungs clear bilaterally, no respiratory distress on 2 L NC GI: Abdomen obese, soft, non-tender, appears non-distended, bowel sounds noted in all four quadrants VASC: No cyanosis, chronic BLE edema, peripheral pulses 2+ MSK: Right foot as above, otherwise no obvious deformities NEURO: A&OX3, moves all extremities equally, no focal neurologic deficits PSYCH: Appropriate mood and affect VITAL SIGNS: Patient Vitals for the past 24 hrs: BP Temp Temp src Pulse Resp SpO2 Weight 05/02/25 0754 -- -- -- 79 -- 94 % -- 05/02/25 0749 122/73 36.6 ??C (97.9 ??F) Oral 79 16 (!) 87 % -- 05/02/25 0358 122/75 36.4 ??C (97.6 ??F) Oral 79 -- 96 % (!) 252 kg (556 lb) 05/01/25 2349 133/68 36.8 ??C (98.2 ??F) Oral 76 -- 93 % -- 05/01/252024 132/75 36.7 ??C (98 ??F) Oral 79 -- 96 % -- 05/01/25 1523 125/69 36.8 ??C (98.2 ??F) Oral 77 -- 96 % -- 05/01/25 1131 122/74 36.6 ??C (97.8 ??F) -- 85 -- 97 % -- LABS: Labs in last 18 hours CBC WBC 7.39 Hb 8.8 (L) Plt 205 Hct 29.3 (L) ANC 5.45 INR ??, PTT ??, Anti-Xa ?? BMP Na 134 (L) Cl 90 (L) BUN 12 Glu 358 (H) K 3.3 (L) Co2 37 (H) Cr 0.73 Ca 8.7 (L) iCa ?? Mg 1.6 (L), Phos 3.0 Lactate ?? LFT AST ?? AlkPhos ?? T Prot ?? ALK ?? Bili ?? Alb ?? D.Bili ?? Lab Results Component Value Date CRP 82.6 (H) 04/27/2025 CRP 9.2 02/18/2019 Lab Results Component Value Date CK 50 05/02/2025 CK 60 05/01/2025 CK 71 04/27/2025 CK 107 02/18/2019 Patient records reviewed and pertinent findings outlined below. IMAGING/STUDIES: CT Foot Right w IV Contrast Result Date: 04/28/2025 Impression: Soft tissue defect along the dorsal lateral foot and open, comminuted fracture and irregularity of the fifth metatarsal head. These findings are compatible with osteomyelitis. No discreteabscess. Exam limited by positioning. XR Foot Right 3+ Views Result Date: 04/27/2025 Impression: Chronic ulcer in the lateral forefoot. There is adjacent osseous destruction and erosions at the fifth MTP suggestive of osteomyelitis. ANTIMICROBIAL REVIEW: IV Daptomycin 04/28/25 - Present IV Meropenem 04/28/25 - Present MICROBIOLOGY: 04/28/25 MDR swab No MDRO isolated 04/27/25 Blood culture NGTD [facility] Culture Data: - 04/25/25: Blood culture NGTD - 04/25/25 Urine culture >100k E. Coli >100k GNR ADULT ID SCREENING: - Hepatitis C - Ab Negative (04/27/25) - HIV - Ab Non-reactive (04/27/25) ASSESSMENT: Gonzalo Smalls is a 49 y.o. male with a PMH of T2DM c/b peripheral neuropathy, HTN, HLD, Afib, on Xarelto, morbid obesity, and QUINN who presented to on for evaluation of a right diabetic foot ulcer. Initial labs significant for leukocytosis of 12,000 and CRP 82.6. X-ray imaging of the right foot showed a lateral forefoot chronic ulcer with 5th MTP bony erosion and destruction. CT of the right foot with IV contrast demonstrated a ulcer to the dorsal and lateral aspect of the right foot with an open and comminuted 5th metatarsal head fracture consistent with osteomyelitis. Given concern for bony infection, ID bone and joint was consulted on 04/28/25 for evaluation. 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 coli - Type 2 Diabetes Mellitus c/b Peripheral Neuropathy - Hemoglobin A1c 8.9% - Complicates wound healing and treatment of infection - Patient would benefit from tight glucose control - Obesity - Body mass index is 76.9 kg/m??. - Complicates all aspects of care - Afib on Xarelto, HTN, HLD, QUINN RECOMMENDATIONS: - Continue renal dose equivalent Daptomycin 1500 mg IV q24h (10 mg/kg by adjusted body weight) - Continue renal dose equivalent Meropenem 2 g IV q8h - Trend CBC w/ diff, CMP, CRP, and CK at least twice weekly while inpatient to monitor for toxicityand ensure appropriate response to treatment. - Follow for bony pathology, duration TBD - OSH blood cultures finalized with no growth, urine with E. Coli (MDR), has received adequate treatment for UTI at this time but will continue Meropenem for coverage of foot for now as no surgical cultures were obtained - Please obtain adult ID screening labs: Hep A IgG, Hep B sAb, Hep B sAg, and Hep B total core Ab - Plan of care and recommendations discussed with patient's primary provider Thank you for allowing us to participate in this patient's care. ID will follow. Janelle Phan PA-C Division of Infectious Diseases Available by [employer] Chat History, assessment, and plan discussed with ID attending, Dr. Chintan Doran The following complex inpatient infectious disease services were performed today: Complex antimicrobial therapy counseling and treatment [1] Current Facility-Administered Medications Medication Dose Route Frequency Provider Last Rate Last Admin acetaminophen (Tylenol) tablet 1,000 mg 1,000 mg Oral q6h PRN Marjorie Myers MD 1,000 mg at 05/01/252024 albuterol 108 (90 Base) MCG/ACT inhaler 2 puff 2 puff Inhalation q4h PRN Marjorie Myers MD atorvastatin (Lipitor) tablet 40 mg 40 mg Oral Nightly Marjorie Myers MD 40 mg at 05/01/252024 bisoprolol (Zebeta) tablet 5 mg 5 mg Oral BID Marjorie Myers MD 5 mg at 05/02/25 0908 bumetanide (Bumex) tablet 4 mg 4 mg Oral TID Marjorie Myers MD 4 mg at 05/02/25 0909 cariprazine (Vraylar) capsule 3 mg 3 mg Oral Daily Marjorie Myers MD 3 mg at 05/02/25 0908 DAPTOmycin (Cubicin) 1,500 mg in sodium chloride 0.9 % 100 mL IVPB 10 mg/kg (Adjusted) Intravenous q24h Marjorie Myers MD 280 mL/hr at 05/01/25 1741 1,500 mg at 05/01/25 1741 glucose (Glutose) 40 % oral gel 15-30 grams of glucose 15-30 grams of glucose Sublingual q15 min PRN Marjorie Myers MD Or dextrose 10 % (D10W) bolus 125 mL 125 mL Intravenous q15 min PRN Marjorie Myers MD Or dextrose 10 % (D10W) bolus 250 mL 250 mL Intravenous q15 min PRN Marjorie Myers MD Or glucagon (human recombinant) injection 1 mg 1 mg Intramuscular q15 min PRN Marjorie Myers MD dilTIAZem CD (Cardizem CD) 24 hr capsule 120 mg 120 mg Oral Daily Marjorie Myers MD 120 mg at 909 gabapentin (Neurontin) capsule 600 mg 600 mg Oral TID Marjorie Myers MD 600 mg at 05/02/25 0909 insulin lispro (Admelog) 100 units/mL injection - Correction - Very Resistant Dose 0-15 Units Subcutaneous TID with meals Marjorie Myers MD 9 Units at 05/02/25 0911 insulin lispro (Admelog) injection - Correction - Nighttime Dose 0-3 Units Subcutaneous Twice at night Marjorie Myers MD 2 Units at 05/02/25 0436 Insulin Lispro (Admelog, HumaLOG) 100 UNIT/ML injection 24 Units 24 Units Subcutaneous TID with meals Sarah Martinez P, FITTING ROOM OPERATOR 24 Units at 05/02/25 0912 insulin NPH (Isophane) (HumuLIN N,NovoLIN N) injection 42 Units 42 Units Subcutaneous BID Sarah Martinez P, FITTING ROOM OPERATOR ipratropium-albuterol (Duo-Neb) 0.5-2.5 mg/3 mL nebulizer solution 3 mL 3 mL Nebulization q4h PRN Marjorie Myers MD LORazepam (Ativan) tablet 1 mg 1 mg Oral Daily PRN Marjorie Myers MD 1 mg at 04/30/25 2031 magnesium oxide (Mag-Ox) tablet 800 mg 800 mg Oral Daily Diane Guzman MD 800 mg at 05/02/25 0909 meropenem (Merrem) 2 g in sodium chloride 0.9 % 100 mL IVPB 2 g Intravenous q8h Marjorie Myers MD 50 mL/hr at 05/02/25 0305 2 g at 05/02/25 0305 mupirocin (Bactroban) 2 % ointment 1 Application 1 Application Each Nostril BID Marjorie Myers MD 1 Application at 05/02/25 0909 oxyCODONE (Roxicodone) immediate release tablet 5 mg 5 mg Oral q4h PRN Marjorie Myers MD 5 mg at 05/02/25 0750 pantoprazole (Protonix) EC tablet 40 mg 40 mg Oral Daily before breakfast Marjorie Myers MD 40 mg at 05/02/25 0745 polyethylene glycol (Miralax) packet 17 g 17 g Oral Daily Marjorie Myers MD 17 g at 05/02/25 09 [Held by provider] rivaroxaban (Xarelto) tablet 20 mg 20 mg Oral Daily Marjorie Myers MD sodium chloride 0.9 % flush 10 mL 10 mL Intravenous q12h Marjorie Myers MD 10 mL at 05/01/25 192 And sodium chloride 0.9 % flush 10 mL 10 mL Intravenous PRN Marjorie Myers MD spironolactone (Aldactone) tablet 100 mg 100 mg Oral Daily Marjorie Myers MD 100 mg at 05/02/25908 tamsulosin (Flomax) 24 hr capsule 0.4 mg 0.4 mg Oral Daily Marjorie Myers MD 0.4 mg at 05/02/25908 traZODone (Desyrel) tablet 100 mg 100 mg Oral Nightly OMarjorie weaver MD 100 mg at 05/01/252024 venlafaxine XR (Effexor-XR) 24 hr capsule 150 mg 150 mg Oral Daily Marjorie Myers MD 150 mg at 05/02/25908 [2] Allergies Allergen Reactions Vancomycin Other - please document in the comment field Red man syndrome * Progress Notes - Diane Guzman MD - 05/02/2025 8:20 AM EDT Subjective Noticed more of a cough this morning. No fevers, chills, or trouble breathing. 17 yo daughter recently diagnosed with bronchitis last week though and wants to make sure he did not catch a bug. Pain well-controlled post-operatively Review of Systemsper HPI Objective Vitals Temp: [36.4 ??C (97.6 ??F)-36.8 ??C (98.3 ??F)] 36.6 ??C (97.9 ??F) Heart Rate: [76-85] 79 Resp: [12-19] 12 BP: (93-149)/(67-116) 122/73 Physical Exam Vitals reviewed. Constitutional: Appearance: Normal appearance. He is obese. HENT: Head: Normocephalic and atraumatic. Nose: Nose normal. Mouth/Throat: Mouth: Mucous membranes are moist. Eyes: Extraocular Movements: Extraocular movements intact. Cardiovascular: Rate and Rhythm: Normal rate and regular rhythm. Pulses: Normal pulses. Heart sounds: Normal heart sounds. Pulmonary: Effort: Pulmonary effort is normal. Breath sounds: Normal breath sounds. Abdominal: General: Abdomen is flat. Palpations: Abdomen is soft. Musculoskeletal: General: Normal range of motion. Cervical back: Normal range of motion. Comments: R foot bandage c/d/I Skin: General: Skin is warm. Neurological: General: No focal deficit present. Mental Status: He is alert and oriented to person, place, and time. Psychiatric: Mood and Affect: Mood normal. Behavior: Behavior normal. Labs in last 18 hours CBC WBC 7.39 Hb 8.8 (L) Plt 205 Hct 29.3 (L) ANC 5.45 INR ??, PTT ??, Anti-Xa ?? BMP Na 134 (L) Cl 90 (L) BUN 12 Glu 358 (H) K 3.3 (L) Co2 37 (H) Cr 0.73 Ca 8.7 (L) iCa ?? Mg 1.6 (L), Phos 3.0 Lactate ?? LFT AST ?? AlkPhos ?? T Prot ?? ALK ?? Bili ?? Alb ?? D.Bili ?? 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 49 yo gentleman with obesity and T2DM admitted for R diabetic foot ulcer with osteomyelitis now s/pR 5th metatarsal amputation on 05/01 with ID and vascular following currently on dapto and meropenem per ID recs #Diabetic foot ulcer with 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 - P/w worsening wound R foot found to have elevated inflammatory markers and CT showing possible OMunable to do MRI 2/2 weight - Consults: vascular, ID - S/p amputation 05/01 - Remains afebrile, HDS Plan: - Continue meropenem, daptomycin renally dosed per ID pending operative culture data - Trend CBC, CMP, CK twice weekly - Adult ID screening labs #DM #Poorly controlled #Hyperglycemia - Home regimen 200 BID - BG ranges 300s - Hospital regimen NPH 35 BID, 24 TID - Endocrine following, appreciate recs #Urinary retention s/p barber - Barber care per protocol - Continue home flomax #Chronic HTN-BB AF-AC, dilt HF-bumex, gracie HLD-statin COPD-inhalers A/D-vraylar, lorazepam, venlafaxine Insomnia-trazadone GERD--PPI QUINN-?CPAP Obesity-complicates care Diet-carb 1 DVT PPX AC FULL CODE Medically Ready for Discharge:Anticipated in 5+ Days * Consults - Kylee Ann RD - 05/02/2025 8:14 AM EDTAssociated Order(s): IP CONSULT TO NUTRITION SERVICES Adult Nutrition Evaluation Note Gonzalo Smalls 49 y.o. male CSN: [id number] Room/Bed 117/117A Nutrition evaluation type: assessment Reason for evaluation: nurse consult Hospital course: 49 y/o M presented for evaluation of a worsening right DM foot ulcer. OM of the 5th MTP, s/p right 5th toe ray amputation on 05/01. Plan for wound vac 05/03. Past medical/ surgical history: Past Medical History[1] Surgical History[2] Social history: Additional comments: 05/02: Pt seen at bedside. Good appetite both now and MANAGER TITLE. No known unintentional weight changes, UBW 570#. No chewing or swallowing difficulties. No N/V/D. Reports being constipated - finally had a BM today after 6 days though notes he feels he still needs to go. Agreeable to Kyree to aid in woundhealing. Vitals and Basic Assessment: BP: 132/75 Temp: 36.8 ??C (98.2 ??F) Oxygen Therapy: Supplemental oxygen O2 Delivery Method: Nasal cannula Shelley Coma Scale Score: 15 Miguel Ángel Scale Score: 15 Most Recent BM Date: 05/02/25 GI Symptoms: Constipation Edema: Generalized, Right lower extremity, Left lower extremity Skin: amputation site right foot ; wound to left heel (DM ulcer), groin, coccyx Allergies: no known food allergies Medications: Current Scheduled Medications[3] Current Continuous Medications[4] Current PRN Medications[5] Meds were reviewed: Yes Labs: Lab Results Component Value Date WBC 7.39 05/02/2025 HGB 8.8 (L) 05/02/2025 HCT 29.3 (L) 05/02/2025 MCV 76 (L) 05/02/2025 PLT 205 05/02/2025 Lab Results Component Value Date GLUCOSE 358 (H) 05/02/2025 CALCIUM 8.7 (L) 05/02/2025 NA 134 (L) 05/02/2025 K 3.3 (L) 05/02/2025 CO2 37 (H) 05/02/2025 CL 90 (L) 05/02/2025 BUN 12 05/02/2025 CREATININE 0.73 05/02/2025 PHOS 3.0 05/02/2025 MG 1.6 (L) 05/02/2025 HGBA1C 8.9 (H) 04/29/2025 Anthropometrics: Height: 182.9 cm (6') Weight: (!) 252 kg (556 lb) BMI (Calculated): 75.39 Weight Evaluation: Extreme Obesity (BMI > 40) [place] Body Weight (kg): 80.9 Percent [place] Body Weight: 311 Adjusted Body Weight (kg): 124 Wt Readings from Last 5 Encounters: 05/02/25 (!) 252 kg (556 lb) 01/10/25 (!) 256 kg (563 lb 4.8 oz) 12/14/24 (!) 256 kg (564 lb 6 oz) 12/11/24 (!) 256 kg (564 lb 6 oz) 09/13/24 (!) 250 kg (551 lb 13 oz) Estimated Needs: Metabolic Cart Study Results: Current Nutrition Intake: Diet Order: Adult Diet Diet Texture: Regular Adult Carbohydrate Restriction: Consistent CHO 1 (8576-1800 Steven, 65 g/meal) Adult Sodium Restriction: 2,000 mg Na Percent Meals Eaten (%): 68% avg x 5 meals Diet Experience and Nutrition History: Diet Education Provided: Will monitor Pertinent home medications: Albuterol, Bumex, Insulin, Metformin, Ozempic, Aldactone Anglican needs: Nutrition Focused Physical Exam: Physical exam performed on (date): 05/02 Temples (muscles): None Clavicle (muscle): None Shoulder (muscle): None Interosseous (muscle): None Calf (muscle): None Orbital (fat): None Triceps (fat): None Assessment of Malnutrition: Malnutrition Identified: No Nutrition Problem: Increased nutrient needs kcal, pro related to increased biological demand for healing as evidenced by right foot DM ulcer s/p amputation. Status of Nutrition Diagnosis: New Nutrition Interventions and Recommendations: - Adjusting to regular, CC2, 2 gm sodium - Notified endocrinology of change to carb restriction - Adding Kyree BID (160 kcal, 14g total L-Arginine and 14g L-Glutamine + 5g total Collagen) to aid in wound healing; please start daily MVI in addition Nutrition Monitoring and Goals: - Pt will tolerate >75% avg of meal intakes - Pt will maintain weight this admission - Blood Glucose <200mg/dl during admission Acuity Level: 1 Kylee Ann, RD, LD [1] Past Medical History: Diagnosis Date Acute kidney injury 05/19/2024 Alcohol abuse, in remission Alcohol abuse, in remission Anxiety disorder, unspecified Anxiety Arthritis Atrial fibrillation (CMS/HCC) CAP (community acquired pneumonia) 05/19/2024 Cellulitis 05/19/2024 CHF (congestive heart failure) COPD (chronic obstructive pulmonary disease) Depression GERD (gastroesophageal reflux disease) Hyperlipidemia Hypertension Left lower lobe pneumonia 05/19/2024 Sleep apnea Sleep apnea, obstructive Type 2 diabetes mellitus [2] Past Surgical History: Procedure Laterality Date ARTERIAL STENT PLACEMENT CHOLECYSTECTOMY GASTRIC BYPASS [3] atorvastatin, 40 mg, Oral, Nightly bisoprolol, 5 mg, Oral, BID bumetanide, 4 mg, Oral, TID cariprazine, 3 mg, Oral, Daily DAPTOmycin, 10 mg/kg (Adjusted), Intravenous, q24h dilTIAZem CD, 120 mg, Oral, Daily gabapentin, 600 mg, Oral, TID insulin lispro, 0-15 Units, Subcutaneous, TID with meals insulin lispro, 0-3 Units, Subcutaneous, Twice at night Insulin Lispro, 24 Units, Subcutaneous, TID with meals insulin NPH (Isophane), 42 Units, Subcutaneous, BID magnesium oxide, 800 mg, Oral, Daily meropenem, 2 g, Intravenous, q8h mupirocin, 1 Application, Each Nostril, BID pantoprazole, 40 mg, Oral, Daily before breakfast polyethylene glycol, 17 g, Oral, Daily [Held by provider] rivaroxaban, 20 mg, Oral, Daily sodium chloride, 10 mL, Intravenous, q12h spironolactone, 100 mg, Oral, Daily tamsulosin, 0.4 mg, Oral, Daily traZODone, 100 mg, Oral, Nightly venlafaxine XR, 150 mg, Oral, Daily [4] [5] PRN medications: acetaminophen, albuterol, glucose OR dextrose 10 % OR dextrose 10 % OR glucagon (human recombinant), ipratropium-albuterol, LORazepam, oxyCODONE, Insert peripheral IVAND Saline lock IV AND sodium chloride AND sodium chloride * Progress Notes - Alejandra Arndt MD - 05/02/2025 7:53 AM EDT Images from the original note were not included. [facility] Department of Surgery Division of Vascular Surgery Surgery Progress Note 05/02/25 Gonzalo Smalls Subjective Subjective: HPI Dx: Diabetic foot ulcer Operations: 05/01/2025 R 5th ray amputation Cinthia AC/AP: Xarelto (Held 04/29) Pulse Exam: Right DP and PT biphasic by Doppler Ongoing Acute Problems: Wound care Chronic Problems: CHF (EF 55% in 2021), paroxsymal atrial fibrillation (on Xarelto), HTN, HLD, T2DM, COPD, QUINN on 2LNC Comments: Wound care Edited by: Paula Martinez MD at 05/01/2025 1018 Interval hx: no acute events overnight. Pain is well controlled. Review of Systems: Relevant review of systems was obtained as able and is negative unless stated above in HPI. Objective Objective: Vital signs: Vitals: 05/02/25 0749 BP: 122/73 Pulse: 79 Resp: Temp: 36.6 ??C (97.9 ??F) SpO2: (!) 87% Physical Exam: GEN: No apparent distress. Resting comfortably in bed. NEURO: Awake, alert and oriented x3. No focal deficits. HENT: NCAT. Trachea appears midline. CV: Appears well-perfused. Normal rate. RESP: Symmetric chest rise. Non-labored breathing. MSK: RLE with bandage on the foot and ankle. He has intact motor of the right foot. There is no blood or drainage on the dressing. SKIN: Warm and dry. Without pallor. Incisions: covered Intake/Output Summary (Last 24 hours) at 05/02/2025 0753 Last data filed at 05/02/2025 0608 Gross per 24 hour Intake 390 ml Output 7625 ml Net -7235 ml Lines/Drains/Tubes: Patient Lines/Drains/Airways Status Active Airway None Output by Drain (mL) 04/30/25699 - 04/30/25185804/30/251899 - 05/01/2565805/01/25699 - 05/01/25185805/01/251899 - 05/02/2559 05/02/25699 - 05/02/25752 Requested LDAs do not have output data documented. Labs in last 18 hours: CBC WBC 7.39 Hb 8.8 (L) Plt 205 Hct 29.3 (L) ANC 5.45 INR ??, PTT ??, Anti-Xa ?? MCV 76 (L) BMP Na 134 (L) Cl 90 (L) BUN 12 Glu 358 (H) K 3.3 (L) Co2 37 (H) Cr 0.73 Ca 8.7 (L) iCa ?? Mg 1.6 (L), Phos 3.0 Lactate ?? LFT AST ?? AlkPhos ?? T Prot ?? ALK ?? Bili ?? Alb ?? D.Bili ?? Lab Trends: H/H Results from last 7 days Lab Units 05/02/25 0310 05/01/2521304/30/25318 HEMOGLOBIN g/dL 8.8* 9.8* 9.6* HEMATOCRIT % 29.3* 32.5* 32.6* INR Results from last 7 days Lab Units 04/28/25 0813 INR 1.4* Cr Results from last 7 days Lab Units 05/02/250 05/01/2521304/30/25318 CREATININE mg/dL 0.73 0.71 0.77 Medications reviewed. Vital signs reviewed. Labs reviewed. Assessment/Plan Assessment and Plan: Gonzalo Smalls is a 49-year-old male with a past medical history notable for class III obesity, CHF (EF 55% in 2021), paroxysmal atrial fibrillation (on Xarelto), HTN, HLD, T2DM, COPD, and QUINN on 2LNC at night, who initially presented with a nonhealing right foot wound. He is now status post right 5th toe ray amputation on 05/01 for osteomyelitis. Postoperatively, the patient is doing well. The surgical site is clean, dry, and intact with no evidence of erythema, drainage, Pain is well-controlled. Vitals stable. No signs of acute infection or ischemia. Plan: -F/U on Surg path -Plan for wound vac tomorrow -Vascular will continue to follow Edited by: Leidy Velasco MD at 04/29/20251811 Dispo: Continue Current Level of Care Alejandra Arndt MD Cosigned by Mary Vicente MD at 05/03/2025 8:47 AM EDT Associated attestation - Mary Vicente MD - 05/03/2025 8:47 AM EDT I saw and evaluated the patient with the resident/fellow. I discussed the case with the resident/fellow and agree with the findings and plan as documented. * Progress Notes - Sarah Martinez, ADALGISA - 05/02/2025 7:47 AM EDT Endocrine - Diabetes Progress Note: Subjective: 24 hour update: -AM BG 283 -s/p toe amputation 05/01 -PO intake good with meals. Reports snacking overnight while watching the games including True Pivot, goldfish, ritz crackers and other snacks -no questions or concerns regarding diabetes regimen at this time I have independently reviewed and interpreted the patient's blood glucose levels in Epic timeline, labs, vitals, and insulin doses administered in the electronic medical record. Review of Systems Constitutional: Negative for chills and fever. Respiratory: Negative for cough and shortness of breath. Cardiovascular: Negative for chest pain and leg swelling. Gastrointestinal: Negative for diarrhea, nausea and vomiting. Skin: Positive for wound. Negative for pallor. Neurological: Negative for dizziness and weakness. Psychiatric/Behavioral: Negative for confusion and decreased concentration. Objective: Physical Exam Vitals and nursing note reviewed. Constitutional: General: He is not in acute distress. Appearance: Normal appearance. He is obese. HENT: Head: Normocephalic. Nose: Nose normal. Mouth/Throat: Mouth: Mucous membranes are moist. Eyes: Extraocular Movements: Extraocular movements intact. Conjunctiva/sclera: Conjunctivae normal. Cardiovascular: Rate and Rhythm: Normal rate. Pulmonary: Effort: Pulmonary effort is normal. No respiratory distress. Abdominal: General: Abdomen is flat. Palpations: Abdomen is soft. Skin: General: Skin is warm and dry. Neurological: General: No focal deficit present. Mental Status: He is alert and oriented to person, place, and time. Psychiatric: Mood and Affect: Mood normal. Behavior: Behavior normal. Thought Content: Thought content normal. BP 122/75 (BP Location: Right arm, Patient Position: Lying) Pulse 79 Temp 36.4 ??C (97.6 ??F) (Oral) Resp 12 Ht 1.829 m (6') Wt (!) 252 kg (556 lb) BMI 75.41 kg/m?? Medications: Current Scheduled Medications[1] Current Continuous Medications[2] Current PRN Medications[3] Lab Review: Results from last 7 days Lab Units 05/02/25 0310 SODIUM mmol/L 134* POTASSIUM mmol/L 3.3* CHLORIDE mmol/L 90* CO2 mmol/L 37* BUN mg/dL 12 CREATININE mg/dL 0.73 EGFR mL/min/1.73m*2 112.9 GLUCOSE mg/dL 358* CALCIUM mg/dL 8.7* Results from last 7 days Lab Units 05/02/25 0310 WBC 10*3/uL 7.39 HEMOGLOBIN g/dL 8.8* HEMATOCRIT % 29.3* PLATELETS 10*3/uL 205 Lab Results Component Value Date GLUCOSE 358 (H) 05/02/2025 GLUCOSE 266 (H) 05/01/2025 GLUCOSE 254 (H) 04/30/2025 PGLU 320 (H) 05/02/2025 PGLU 316 (H) 05/01/2025 PGLU 294 (H) 05/01/2025 PGLU 301 (H) 05/01/2025 PGLU 252 (H) 05/01/2025 PGLU 222 (H) 05/01/2025 PGLU 226 (H) 04/30/2025 PGLU 173 (H) 04/30/2025 Lab Results Component Value Date HGBA1C 8.9 (H) 04/29/2025 Diet: Dietary Orders (From admission, onward) Start Ordered 05/01/25 1020 Adult diet Diet texture: Regular; Carbohydrate restriction: Consistent Carb 1 (65 gm max/meal); Sodium restriction: 2,000 mg Na Diet effective now References: IDDSI Diet Texture Guide Question Answer Comment Diet texture Regular Carbohydrate restriction: Consistent Carb 1 (65 gm max/meal) Sodium restriction: 2,000 mg Na 05/01/25 1019 Assessment: Gonzalo Smalls is a 49 y.o. male with hx of CHF, HTN, HLD, a.fib, type 2 DM [on U500 insulin], COPD, QUINN on nightly oxygen, recurrent UTIs, BPH, morbid obesity, and anxiety/depression. Patient presented to ED for evaluation of worsening right diabetic foot ulcer. Mr. Smalls presented to an OSH and Podiatry they are recommended to coming to for evaluation due to his size and delayed abilityto get him in the OR. Of note, Mr. Smalls is receiving enteral panel for recurrent UTI and has a chronic Barber. Per chart review it appears that the kidney infection is for ESBL E coli. ED lab work was significant for leukocytosis, anemia, hyperglycemia, hypokalemia, hypomagnesemia, elevated CRP and sed rate. 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 Hospital medicine was consulted for admission. Endocrine Diabetes team was consulted for glycemic management on 04/28/25. Patient on U500 insulin dosing at home. Primary team requests recommendations and orders Daily Glucose and Insulin Total Daily Dose -consulted 10 AM BG 199 -04/30: 173-226, TDD 114 units -05/01: 222-316, TDD 133 units Diagnoses #DM, type 2, uncontrolled -A1c: 8.9 on admission -Home regimen: U500 insulin: prescription for 225 units BID patient reports taking 200 units BID --> first dispensed 03/24/2025 - last dispensed 04/24/2025. insulin pen Ozempic - recently started increased dose 0.5 mg this past week Metformin 100 mg BID -Elevated HgA1C levels impact all body systems with increased risk for worsening of conditions including renal function, heart disease, eye disease, neuropathy, foot ulcerations, lower extremity amputation, gastroparesis, and overall increased risk for mortality #diabetic foot ulcer -s/p right 4th and 5th toe amputation #anemia Lab Results Component Value Date HGB 8.8 (L) 05/02/2025 -can lead to false low A1c. Must rely on intensive monitoring of glucose #obesity -leads to insulin resistance -complicating all aspects of care Plan -After review of glucose trends and insulin delivery over the last 24 hours, titration of intensiveinsulin therapy was made to overall improve glycemic control and improve patient outcomes Current Insulin Regimen: Basal: 35 units NPH BID - increase to 42 units Bolus: 20 units lispro with meals - increase 24 units Correction: very resistant correction with CF 3:50>150 AC and 1:50>250 HS, 0300 Snack dose: start 6 units lispro PRN for overnight snacking -continue to assess blood glucose trends and adjust basal/bolus insulin therapy dose accordingly -continue intensive glucose monitoring due to increased risk for hyper/hypoglycemia secondary to insulin therapy -fsbg ac/hs when eating, q6h when NPO, on TF/TPN -correction insulin to be given for hyperglycemia, do not hold correction if patient does not eat -hypoglycemia protocol in place -please document the percentage of meals consumed in intake and output flowsheet -please notify us when diet orders change or steroids added as this impacts our treatment -plan and management discussed with patient, telehealth nurse educator, bedside RN NOTE: -Patient utilizes U500 insulin pen at home. With the U500 pen, a conversion is not needed. Typically patient's required a 70% reduction in home U500 dosing. 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 Please notify us as patient nears discharge for final recommendations Please contact Sarah Martinez APRN via secure chat or page us at [phone] during 7a-7p, Thursday-Thursday. For after hours please contact the on-call Endocrine Fellow. Thank you for the opportunity to participate in this patient's care. Time Spent: I personally spent a total of 35 minutes on this encounter. This time includes face to face with patient, counseling and discussion and/or coordination of care. [1] atorvastatin, 40 mg, Oral, Nightly bisoprolol, 5 mg, Oral, BID bumetanide, 4 mg, Oral, TID cariprazine, 3 mg, Oral, Daily DAPTOmycin, 10 mg/kg (Adjusted), Intravenous, q24h dilTIAZem CD, 120 mg, Oral, Daily gabapentin, 600 mg, Oral, TID insulin lispro, 0-15 Units, Subcutaneous, TID with meals insulin lispro, 0-3 Units, Subcutaneous, Twice at night Insulin Lispro, 20 Units, Subcutaneous, TID with meals insulin NPH (Isophane), 35 Units, Subcutaneous, BID meropenem, 2 g, Intravenous, q8h mupirocin, 1 Application, Each Nostril, BID pantoprazole, 40 mg, Oral, Daily before breakfast polyethylene glycol, 17 g, Oral, Daily [Held by provider] rivaroxaban, 20 mg, Oral, Daily sodium chloride, 10 mL, Intravenous, q12h spironolactone, 100 mg, Oral, Daily tamsulosin, 0.4 mg, Oral, Daily traZODone, 100 mg, Oral, Nightly venlafaxine XR, 150 mg, Oral, Daily [2] [3] PRN medications: acetaminophen, albuterol, glucose OR dextrose 10 % OR dextrose 10 % OR glucagon (human recombinant), ipratropium-albuterol, LORazepam, oxyCODONE, Insert peripheral IVAND Saline lock IV AND sodium chloride AND sodium chloride * Care Plan - Aime Gill RN - 05/01/2025 9:50 PM EDT Problem: Skin Injury Risk Increased Goal: Skin Health and Integrity Outcome: Ongoing, Progressing Problem: Adult Inpatient Plan of Care Goal: Plan of Care Review Outcome: Ongoing, Progressing Flowsheets (Taken 05/01/2025 1130 by Rocío Crandall RN) Progress: improving Plan of Care Reviewed With: patient spouse Goal: Patient-Specific Goal (Individualized) Outcome: Ongoing, Progressing Flowsheets (Taken 05/01/20252000) Patient/Family-Specific Goals (Include Timeframe): Patient will remain free of falls/injury this shift Individualized Care Needs: ADL assitance Anxieties, Fears or Concerns: None stated Goal: Absence of Hospital-Acquired Illness or Injury Outcome: Ongoing, Progressing Goal: Optimal Comfort and Wellbeing Outcome: Ongoing, Progressing Problem: Fall Injury Risk Goal: Absence of Fall and Fall-Related Injury Outcome: Ongoing, Progressing Problem: Infection Goal: Absence of Infection Signs and Symptoms Outcome: Ongoing, Progressing Problem: Mobility Impairment Goal: Optimal Mobility Outcome: Ongoing, Progressing Problem: Mobility Impairment Goal: Optimal Mobility Outcome: Ongoing, Progressing Problem: Diabetes Goal: Optimal Coping Outcome: Ongoing, Progressing Goal: Optimal Functional Ability Outcome: Ongoing, Progressing Goal: Blood Glucose Level Within Target Range Outcome: Ongoing, Progressing Goal: Minimize Hypoglycemia Risk Outcome: Ongoing, Progressing Problem: Comorbidity Management Goal: Maintenance of Asthma Control Outcome: Ongoing, Progressing Goal: Maintenance of Behavioral Health Symptom Control Outcome: Ongoing, Progressing Goal: Maintenance of COPD Symptom Control Outcome: Ongoing, Progressing Goal: Blood Glucose Level Within Target Range Outcome: Ongoing, Progressing Goal: Maintenance of Heart Failure Symptom Control Outcome: Ongoing, Progressing Goal: Blood Pressure in Desired Range Outcome: Ongoing, Progressing Goal: Maintenance of Osteoarthritis Symptom Control Outcome: Ongoing, Progressing Goal: Bariatric Home Regimen Maintained Outcome: Ongoing, Progressing Goal: Maintenance of Seizure Control Outcome: Ongoing, Progressing * Care Plan - Rocío Crandall RN - 05/01/2025 7:23 PM EDT Problem: Skin Injury Risk Increased Goal: Skin Health and Integrity Outcome: Ongoing, Progressing Problem: Adult Inpatient Plan of Care Goal: Plan of Care Review Outcome: Ongoing, Progressing Flowsheets (Taken 05/01/2025 1130) Progress: improving Plan of Care Reviewed With: patient spouse Goal: Patient-Specific Goal (Individualized) Outcome: Ongoing, Progressing Flowsheets (Taken 05/01/2025 1800) Patient/Family-Specific Goals (Include Timeframe): pain will remain controlled throughout patient shift Individualized Care Needs: pain control Anxieties, Fears or Concerns: none Goal: Absence of Hospital-Acquired Illness or Injury Outcome: Ongoing, Progressing Intervention: Identify and Manage Fall Risk Flowsheets (Taken 05/01/2025 1800) Safety Promotion/Fall Prevention: activity supervised assistive device/personal items within reach clutter-free environment maintained fall prevention program maintained lighting adjusted nonskid shoes/slippers when out of bed room organization consistent toileting scheduled safety round/check completed other (see comments) Intervention: Prevent Skin Injury Flowsheets (Taken 05/01/2025 1130) Body Position: weight shifting education provided foot of bed elevated Skin Protection: incontinence pads utilized protective footwear used transparent dressing maintained Intervention: Prevent and Manage VTE (Venous Thromboembolism) Risk Flowsheets (Taken 05/01/2025 1600) VTE Prevention/Management: SCDs (sequential compression devices) off medication Intervention: Prevent Infection Flowsheets (Taken 05/01/2025 1130) Infection Prevention: environmental surveillance performed equipment surfaces disinfected hand hygiene promoted rest/sleep promoted personal protective equipment utilized Goal: Optimal Comfort and Wellbeing Outcome: Ongoing, Progressing Intervention: Monitor Pain and Promote Comfort Flowsheets (Taken 05/01/2025 1130) Pain Management Interventions: emotional support pillow support provided position adjusted Intervention: Provide Person-Centered Care Flowsheets (Taken 05/01/2025 1130) Trust Relationship/Rapport: care explained choices provided emotional support provided empathic listening provided questions answered thoughts/feelings acknowledged reassurance provided questions encouraged Problem: Fall Injury Risk Goal: Absence of Fall and Fall-Related Injury Outcome: Ongoing, Progressing Intervention: Identify and Manage Contributors Flowsheets (Taken 05/01/2025 1130) Medication Review/Management: medications reviewed high-risk medications identified Self-Care Promotion: independence encouraged BADL personal objects within reach BADL personal routines maintained Intervention: Promote Injury-Free Environment Flowsheets (Taken 05/01/2025 1800) Safety Promotion/Fall Prevention: activity supervised assistive device/personal items within reach clutter-free environment maintained fall prevention program maintained lighting adjusted nonskid shoes/slippers when out of bed room organization consistent toileting scheduled safety round/check completed other (see comments) Problem: Infection Goal: Absence of Infection Signs and Symptoms Outcome: Ongoing, Progressing Intervention: Prevent or Manage Infection Flowsheets (Taken 05/01/2025 1130) Infection Management: aseptic technique maintained Fever Reduction/Comfort Measures: lightweight bedding lightweight clothing Isolation Precautions: protective Problem: Mobility Impairment Goal: Optimal Mobility Outcome: Ongoing, Progressing Intervention: Optimize Mobility Flowsheets (Taken 05/01/2025 1130) Activity Management: activity adjusted per tolerance activity encouraged Positioning/Transfer Devices: pillows air-assisted device Problem: Mobility Impairment Goal: Optimal Mobility Outcome: Ongoing, Progressing Intervention: Optimize Mobility Flowsheets (Taken 05/01/2025 1130) Activity Management: activity adjusted per tolerance activity encouraged Positioning/Transfer Devices: pillows air-assisted device Problem: Diabetes Goal: Optimal Coping Outcome: Ongoing, Progressing Intervention: Support Wellbeing and Self-Management Success Flowsheets (Taken 05/01/2025 1130) Supportive Measures: active listening utilized verbalization of feelings encouraged self-care encouraged Family/Support System Care: involvement promoted presence promoted self-care encouraged support provided Goal: Optimal Functional Ability Outcome: Ongoing, Progressing Intervention: Optimize Functional Ability Flowsheets (Taken 05/01/2025 1130) Activity Management: activity adjusted per tolerance activity encouraged Activity Assistance Provided: lift team assistance assistance refused Self-Care Promotion: independence encouraged BADL personal objects within reach BADL personal routines maintained Goal: Blood Glucose Level Within Target Range Outcome: Ongoing, Progressing Intervention: Optimize Glycemic Control Flowsheets (Taken 05/01/2025 1130) Hyperglycemia Management: blood glucose monitored correctional insulin given Goal: Minimize Hypoglycemia Risk Outcome: Ongoing, Progressing Intervention: Minimize and Manage Hypoglycemia Flowsheets (Taken 05/01/2025 1130) Hypoglycemia Management: blood glucose monitored Problem: Comorbidity Management Goal: Maintenance of Asthma Control Outcome: Ongoing, Progressing Intervention: Maintain Asthma Symptom Control Flowsheets (Taken 05/01/2025 1130) Medication Review/Management: medications reviewed high-risk medications identified Goal: Maintenance of Behavioral Health Symptom Control Outcome: Ongoing, Progressing Intervention: Maintain Behavioral Health Symptom Control Flowsheets (Taken 05/01/2025 1130) Medication Review/Management: medications reviewed high-risk medications identified Goal: Maintenance of COPD Symptom Control Outcome: Ongoing, Progressing Intervention: Maintain COPD (Chronic Obstructive Pulmonary Disease) Symptom Control Flowsheets (Taken 05/01/2025 1130) Medication Review/Management: medications reviewed high-risk medications identified Goal: Blood Glucose Level Within Target Range Outcome: Ongoing, Progressing Intervention: Monitor and Manage Glycemia Flowsheets (Taken 05/01/2025 1130) Medication Review/Management: medications reviewed high-risk medications identified Goal: Maintenance of Heart Failure Symptom Control Outcome: Ongoing, Progressing Intervention: Maintain Heart Failure Management Flowsheets (Taken 05/01/2025 1130) Medication Review/Management: medications reviewed high-risk medications identified Goal: Blood Pressure in Desired Range Outcome: Ongoing, Progressing Intervention: Maintain Blood Pressure Management Flowsheets (Taken 05/01/2025 1130) Medication Review/Management: medications reviewed high-risk medications identified Goal: Maintenance of Osteoarthritis Symptom Control Outcome: Ongoing, Progressing Intervention: Maintain Osteoarthritis Symptom Control Flowsheets (Taken 05/01/2025 1130) Activity Management: activity adjusted per tolerance activity encouraged Medication Review/Management: medications reviewed high-risk medications identified Goal: Bariatric Home Regimen Maintained Outcome: Ongoing, Progressing Intervention: Maintain and Manage Postbariatric Surgery Care Flowsheets (Taken 05/01/2025 1130) Medication Review/Management: medications reviewed high-risk medications identified Goal: Maintenance of Seizure Control Outcome: Ongoing, Progressing Intervention: Maintain Seizure Symptom Control Flowsheets (Taken 05/01/2025 1130) Medication Review/Management: medications reviewed high-risk medications identified * Progress Notes - Marjorie Myers MD - 05/01/2025 3:12 PM EDT Subjective Seen post surgery He is awake alert, in pain but not in severe distress Vas team sent path, no Cx was sent ID is following Review of Systems Pain in right foot Objective Vitals Temp: [36.6 ??C (97.8 ??F)-37 ??C (98.6 ??F)] 36.6 ??C (97.8 ??F) Heart Rate: [58-85] 85 Resp: [12-22] 12 BP: (93-150)/(67-116) 122/74 Physical Exam Physical Exam Vitals and nursing note reviewed. Constitutional: General: Not in acute distress. Appearance: Normal appearance. HENT: Head: Normocephalic and atraumatic. Nose: No congestion or rhinorrhea. Mouth/Throat: Mouth: Mucous membranes are moist. Pharynx: Oropharynx is clear. No posterior oropharyngeal erythema. Eyes: General: No scleral icterus. Extraocular Movements: Extraocular movements intact. Conjunctiva/sclera: Conjunctivae normal. Cardiovascular: Rate and Rhythm: Normal rate. Heart sounds: Normal heart sounds. No murmur heard. No gallop. Pulmonary: Breath sounds: Normal breath sounds. No wheezing or rales. Abdominal: General: Bowel sounds are normal. There is no distension. Palpations: Abdomen is soft. Tenderness: There is no abdominal tenderness. Musculoskeletal: Right foot with dressing Chronic skin changes in the left LE Skin: General: Skin is warm and dry. Neurological: General: No focal deficit present. Mental Status: Alert and oriented to person, place, and time. Psychiatric: Mood and Affect: Mood normal. Thought Content: Thought content normal. 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 #Worsened Chronic Right Diabetic Foot Ulcer and 5th metatarsal OM, s/p Right 5th toe ray amputation on 05/01 - CT, right foot: soft tissue defect along the dorsal lateral foot and open comminuted fracture, and irregularity of 5th metatarsal with findings compatible for osteomyelitis. Mood discrete abscess - XR, right foot: Chronic ulcer in the lateral forefoot with adjacent osseous destruction and erosion of the 5th MTP - CRP: 82.6, Sed Rate >100 - ABIs with normal - MRI w/ contrast cannot be done given the weight limit - ID consulted and rec : meropenam and daptomycin - vas team consulted and rec amputation vs transfer to [facility] for podiatry input about foot salvage : cannot transfer to [facility] given weight limit, pod team cannot come to . - Vas surgery : Foot debridement with 5th toe amputation on 05/01. Path is sent, not Cx. - may resume xarelto once surgery clear #Type 2 DM #Neuropathy - DM team consulted - FSBS per protocol - 2CC diet #UTI #Recurrent UTI #BPH - Barber in place due to in an adequate bladder emptying - home meds: Flomax Plan - Barber care per protocol - Continue home Flomax #HTN - bisoprolol 5 mg BID #Afib - Xarelto 20 mg daily, diltiazem 120 mg daily #CHF - echo, 09/13/24: 50%, Bumex 4 mg TID, spironolactone 100 mg daily #HLD - atorvastatin 40 mg daily #COPD - albuterol inhaler 2 puffs q.4 PRN #Anxiety/Depression - Vraylar 3 mg BID, lorazepam 1 mg daily, venlafaine 150 mg daily, #insomnia - trazodone #Chronic low back pain - norco 10-325; hold #GERD - omeprazole 40 mg twice daily #Morbid Obesity - failed gastric sleeve, Ozempic, BMI 81.99, complicates all aspects of care #QUINN - 2 L nasal cannula at night Medically Ready for Discharge:Anticipated in 5+ Days * Progress Notes - Mayra Apodaca RN - 05/01/2025 12:15 PM EDT Case Management Adult Progress Note Gonzalo Smalls 49 y.o. male CSN: [id number] Admission: 04/27/2025 9:29 PM Primary Problem: Diabetic foot ulcer Anticipated Discharge Date: TBD Has Discharge Plans Changed? No Medicare Second Notice: Greater than 2 days before discharge Medically Ready for Discharge: Anticipated in 5+ Days Additional Comments Patient admitted for worsening right diabetic foot ulcer. Vascular surgery consulted. Patient s/p debridement and toe amputation on 05/01. ID consulted. Endocrine following. Per MD patient is not medically ready for discharge. Patient in OR for wound debridement and toe amputation on this date. RNCM will continue to monitor for further discharge needs. Mayra Apodaca RN * Significant Event - Leidy Velasco MD - 05/01/2025 11:29 AM EDT Images from the original note were not included. [employer] Department of Surgery Division of Vascular Surgery Post Operative Check: Subjective: Procedure: right 5th toe amputation Patient currently reports he has been doing well since surgery. He states that he has had no pain and that his leg remains numb from the intra-operative block. He has been able to eat and drink without any difficulty. He denies nausea and vomiting. Objective: Vitals: Vitals: 05/01/25 0945 BP: 117/80 Pulse: 77 Resp: 12 Temp: 36.8 ??C (98.2 ??F) SpO2: 97% Physical Exam: GEN: No apparent distress. Resting comfortably in bed. NEURO: Awake, alert and oriented x3. No focal deficits. HENT: NCAT. Trachea appears midline. CV: Appears well-perfused. Normal rate. RESP: Symmetric chest rise. Non-labored breathing. MSK: RLE with bandage on the foot and ankle. He has intact motor of the right foot. There is no blood or drainage on the dressing. SKIN: Warm and dry. Without pallor. Incisions: covered Labs: WBC 6.96 Hgb 9.8 (L) PLT 218 HCT 32.5 (L) INR ?? PTT ?? antiXa ?? Na 137 Cl 91 (L) BUN 9 Gluc 266 (H) K 3.4 (L) CO2 36 (H) Creat 0.71 Ca 8.6 (L) iCa ?? Mg 1.8 (L) Phos 3.0 pH ?? pCO2 ?? pO2 ?? SPO2 ?? FIO2 ?? HCO3 ?? BE ?? Lactate ?? AST ?? AlkPhos ?? T Prot ?? ALT ?? Bili ?? Alb ?? D.Bili ?? Assessment and Plan: Gonzalo Smalls is a 49 y.o. male who is recovering appropriately in the current post op period. Will continue to monitor. Surgical team to take down dressing tomorrow morning, 05/02. Will plan for wound vac placement on 05/03. Diet: Regular Anticoagulation/DVT ppx: Xarelto Pain management: oxy, tylenol Level of care: Continue Current Level of Care , per primary team I have answered and addressed all issues and concerns from the patient and nursing staff. I have notified senior resident/attending electronics tester with any issues or concerns. Leidy Velasco MD General Surgery Resident * Anesthesia PACU Signout - Araceli Spencer MD - 05/01/2025 9:37 AM EDT Patient: Gonzalo Smalls Anesthesia Type: MAC Vitals Value Taken Time BP 117/80 05/01/25 09:35 Temp 36.8 ??C (98.3 ??F) 05/01/25 09:10 Pulse 81 05/01/25 09:35 Resp 14 05/01/25 09:35 SpO2 96 % 05/01/25 09:35 Vitals shown include unfiled device data. Anesthesia PACU Signout Patient location during evaluation: PACU Patient participation: complete - patient participated Level of consciousness: baseline and awake Pain management: adequate (pain score 0-3) Airway patency: natural airway Hydration status: acceptable PONV: none Cardiovascular status: acceptable and hemodynamically stable Respiratory status: acceptable, spontaneous ventilation, unassisted, nonlabored ventilation and nasal cannula (2L) Discharge Disposition: admit to inpatient unit Cosigned by Holly Spicer MD at 05/01/2025 10:17 AM EDT Associated attestation - Holly Spicer MD - 05/01/2025 10:17 AM EDT I saw and evaluated the patient with the resident/fellow. I discussed the case with the resident/fellow and agree with the findings and plan as documented. * Progress Notes - Janelle Phan PA - 05/01/2025 9:08 AM EDT BONE & JOINT INFECTIOUS DISEASE PROGRESS NOTE 05/01/2025 SUBJECTIVE: Taken to OR today for right 5th toe amputation with vascular surgery. Unfortunately no cultures were obtained but bony pathology is pending. Patient seen postoperatively in his room. He states that he is overall feeling well, denies significant pain. He has been tolerating antibiotics. Denies any fever, chills, sweats, difficulty breathing, abdominal pain, nausea/vomiting, changes in bowel habits, or other complications of antibiotic therapy. Reviewed current plans for antibiotics, all questions and concerns addressed with patient and spouse at bedside REVIEW OF SYSTEMS: Complete 14 point review of systems is negative except for positives documented in HPI/subjective MEDICATIONS: Current Medications[1] ALLERGIES: Allergies[2] PHYSICAL EXAM: GEN: Chronically ill-appearing, obese male, lying in bed in no apparent distress SKIN: Right foot with clean, dry, intact surgical dressing. Skin is otherwise warm, well-perfused, no rashes or lesions on exposed skin EYES: Sclera anicteric, EOMI HENT: NCAT, neck supple, full ROM, mmm CHEST: Atraumatic, symmetric chest rise HEART: Regular rate and rhythm, no appreciable murmur LUNGS: Good air movement, lungs CTAB, unlabored on NC GI: Abdomen obese, soft, non-tender, appears non-distended, normoactive bowel sounds in all quadrants VASC: No cyanosis, chronic BLE edema, peripheral pulses 2+ MSK: Right foot as above, otherwise no obvious deformities NEURO: A&OX3, moves all extremities equally, no focal neurologic deficits PSYCH: Appropriate mood and affect VITAL SIGNS: Patient Vitals for the past 24 hrs: BP Temp Temp src Pulse Resp SpO2 Weight 05/01/25 0524 -- -- -- -- -- -- (!) 257 kg (567 lb 0.4 oz) 05/01/25 0330 121/76 36.8 ??C (98.3 ??F) Oral 58 -- 96 % -- 04/30/25 2332 139/72 36.7 ??C (98 ??F) Oral 75 -- 94 % -- 04/30/25 2020 126/77 37 ??C (98.6 ??F) Axillary 79 22 96 % -- 04/30/25 1618 (!) 150/68 36.6 ??C (97.9 ??F) Oral 70 20 96 % -- 04/30/25 1208 119/63 36.6 ??C (97.8 ??F) Oral 66 18 97 % -- 04/30/25 1102 -- -- -- -- -- -- (!) 257 kg (567 lb 0.4 oz) LABS: Labs in last 18 hours CBC WBC 6.96 Hb 9.8 (L) Plt 218 Hct 32.5 (L) ANC 5.26 INR ??, PTT ??, Anti-Xa ?? BMP Na 137 Cl 91 (L) BUN 9 Glu 266 (H) K 3.4 (L) Co2 36 (H) Cr 0.71 Ca 8.6 (L) iCa ?? Mg 1.8 (L), Phos 3.0 Lactate ?? LFT AST ?? AlkPhos ?? T Prot ?? ALK ?? Bili ?? Alb ?? D.Bili ?? Lab Results Component Value Date CRP 82.6 (H) 04/27/2025 CRP 9.2 02/18/2019 Lab Results Component Value Date CK 60 05/01/2025 CK 71 04/27/2025 CK 107 02/18/2019 Patient records reviewed and pertinent findings outlined below. IMAGING/STUDIES: CT Foot Right w IV Contrast Result Date: 04/28/2025 Impression: Soft tissue defect along the dorsal lateral foot and open, comminuted fracture and irregularity of the fifth metatarsal head. These findings are compatible with osteomyelitis. No discreteabscess. Exam limited by positioning. XR Foot Right 3+ Views Result Date: 04/27/2025 Impression: Chronic ulcer in the lateral forefoot. There is adjacent osseous destruction and erosions at the fifth MTP suggestive of osteomyelitis. ANTIMICROBIAL REVIEW: IV Daptomycin 04/28/25 - Present IV Meropenem 04/28/25 - Present MICROBIOLOGY: 04/28/25 MDR swab No MDRO isolated 04/27/25 Blood culture NGTD ADULT ID SCREENING: - Hepatitis C - Ab Negative (04/27/25) - HIV - Ab Non-reactive (04/27/25) ASSESSMENT: Gonzalo Smalls is a 49 y.o. male with a PMH of T2DM c/b peripheral neuropathy, HTN, HLD, Afib, on Xarelto, morbid obesity, and QUINN who presented to on for evaluation of a right diabetic foot ulcer. Initial labs significant for leukocytosis of 12,000 and CRP 82.6. X-ray imaging of the right foot showed a lateral forefoot chronic ulcer with 5th MTP bony erosion and destruction. CT of the right foot with IV contrast demonstrated a ulcer to the dorsal and lateral aspect of the right foot with an open and comminuted 5th metatarsal head fracture consistent with osteomyelitis. Given concern for bony infection, ID bone and joint was consulted on 04/28/25 for evaluation. 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 coli - Type 2 Diabetes Mellitus c/b Peripheral Neuropathy - Hemoglobin A1c 8.9% - Complicates wound healing and treatment of infection - Patient would benefit from tight glucose control - Obesity - Body mass index is 76.9 kg/m??. - Complicates all aspects of care - Afib on Xarelto, HTN, HLD, QUINN RECOMMENDATIONS: - Continue renal dose equivalent Daptomycin 1500 mg IV q24h (10 mg/kg by adjusted body weight) - Continue renal dose equivalent Meropenem 2 g IV q8h - Trend CBC w/ diff, CMP, CRP, and CK at least twice weekly while inpatient to monitor for toxicityand ensure appropriate response to treatment. - Follow for bony pathology, duration TBD - Will contact [facility] tomorrow to check on urine culture results - Please obtain adult ID screening labs: Hep A IgG, Hep B sAb, Hep B sAg, and Hep B total core Ab - Plan of care and recommendations discussed with patient's primary provider Thank you for allowing us to participate in this patient's care. ID will follow. Janelle Phan PA-C Division of Infectious Diseases Available by [employer] History, assessment, and plan discussed with ID attending, Dr. Chintan Doran The following complex inpatient infectious disease services were performed today: Complex antimicrobial therapy counseling and treatment [1] Current Facility-Administered Medications Medication Dose Route Frequency Provider Last Rate Last Admin [Transfer Hold] acetaminophen (Tylenol) tablet 1,000 mg 1,000 mg Oral q6h PRN Sy De La Fuente APRN,DNP 1,000 mg at 04/30/25 0328 [Transfer Hold] albuterol 108 (90 Base) MCG/ACT inhaler 2 puff 2 puff Inhalation q4h PRN Sy De La Fuente APRN, DNP [Transfer Hold] atorvastatin (Lipitor) tablet 40 mg 40 mg Oral Nightly Sy De La Fuente APRN, DNP 40mg at 04/30/25 2020 [Transfer Hold] bisoprolol (Zebeta) tablet 5 mg 5 mg Oral BID Sy De La Fuente APRN, DNP 5 mg at 04/30/252024 [Transfer Hold] bumetanide (Bumex) tablet 4 mg 4 mg Oral TID Sy De La Fuente APRN, DNP 4 mg at 04/30/252019 [Transfer Hold] cariprazine (Vraylar) capsule 3 mg 3 mg Oral Daily Sy De La Fuente APRN, DNP 3 mg at 04/30/25 0953 ceFAZolin (Ancef) injection 3 g 3 g Intravenous Once Jann Shen MD DAPTOmycin (Cubicin) 1,500 mg in sodium chloride 0.9 % 100 mL IVPB 10 mg/kg (Adjusted) Intravenous q24h Marjorie Myers MD Stopped at 04/30/25 175 [Transfer Hold] glucose (Glutose) 40 % oral gel 15-30 grams of glucose 15-30 grams of glucose Sublingual q15 min PRN Sy De La Fuente APRN, DNP Or [Transfer Hold] dextrose 10 % (D10W) bolus 125 mL 125 mL Intravenous q15 min PRN Sy De La Fuente APRN, DNP Or [Transfer Hold] dextrose 10 % (D10W) bolus 250 mL 250 mL Intravenous q15 min PRN Sy De La Fuente APRN, DNP Or [Transfer Hold] glucagon (human recombinant) injection 1 mg 1 mg Intramuscular q15 min PRN Sy De La Fuente APRN, DNP glucose (Glutose) 40 % oral gel 15-30 grams of glucose 15-30 grams of glucose Sublingual q15 min PRN Alen Mena CRNA, DNP Or dextrose 10 % (D10W) bolus 125 mL 125 mL Intravenous q15 min PRN Alen Mena CRNA, DNP Or dextrose 10 % (D10W) bolus 250 mL 250 mL Intravenous q15 min PRN Alen Mena CRNA, DNP Or glucagon (human recombinant) injection 1 mg 1 mg Intramuscular q15 min PRN Alen Mena CRNA, DNP [Transfer Hold] dilTIAZem CD (Cardizem CD) 24 hr capsule 120 mg 120 mg Oral Daily Sy De La Fuente APRN, DNP 120 mg at 04/30/25 0954 [Transfer Hold] gabapentin (Neurontin) capsule 600 mg 600 mg Oral TID Sy De La Fuente APRN, DNP 600mg at 04/30/252019 [Transfer Hold] insulin lispro (Admelog) 100 units/mL injection - Correction - Very Resistant Dose 0-15 Units Subcutaneous TID with meals Aileen Leonardo APRN 3 Units at 04/30/251710 [Transfer Hold] insulin lispro (Admelog) injection - Correction - Nighttime Dose 0-3 Units Subcutaneous Twice at night Sy De La Fuente APRN, DNP [Transfer Hold] Insulin Lispro (Admelog, HumaLOG) 100 UNIT/ML injection 20 Units 20 Units Subcutaneous TID with meals Aileen Leonardo APRN 20 Units at 04/30/251710 [Transfer Hold] insulin NPH (Isophane) (HumuLIN N,NovoLIN N) injection 33 Units 33 Units Subcutaneous BID Ivory Samuels MBBS 16 Units at 04/30/252026 insulin regular (HumuLIN R,NovoLIN R) 100 UNIT/ML injection 3 Units 3 Units Intravenous Once Alen Mena CRNA, DNP [Transfer Hold] ipratropium-albuterol (Duo-Neb) 0.5-2.5 mg/3 mL nebulizer solution 3 mL 3 mL Nebulization q4h PRN Sy De La Fuente APRN, DNP [Transfer Hold] LORazepam (Ativan) tablet 1 mg 1 mg Oral Daily PRN Sy De La Fuente APRN, DNP 1 mg at 04/30/252030 meropenem (Merrem) 2 g in sodium chloride 0.9 % 100 mL IVPB 2 g Intravenous q8h Sy De La Fuente APRN, DNP 50 mL/hr at 05/01/25310 2 g at 05/01/25 031 [Transfer Hold] mupirocin (Bactroban) 2 % ointment 1 Application 1 Application Each Nostril BID Marjorie Myers MD 1 Application at 04/30/252019 ondansetron (Zofran) injection 4 mg 4 mg Intravenous Once PRN Og Shah CRNA [Transfer Hold] oxyCODONE (Roxicodone) immediate release tablet 5 mg 5 mg Oral q4h PRN Marjorie Myers MD 5 mg at 05/01/25 0210 [Transfer Hold] pantoprazole (Protonix) EC tablet 40 mg 40 mg Oral Daily before breakfast Sy De La Fuente APRN, DNP 40 mg at 04/30/25 0805 [Transfer Hold] polyethylene glycol (Miralax) packet 17 g 17 g Oral Daily Sy De La Fuente APRN, DNP17 g at 04/30/25 0953 [Held by provider] rivaroxaban (Xarelto) tablet 20 mg 20 mg Oral Daily yS De La Fuente APRN, DNP [Transfer Hold] sodium chloride 0.9 % flush 10 mL 10 mL Intravenous q12h Sy De La Fuente APRN, DNP 10 mL at 04/30/25 1853 And [Transfer Hold] sodium chloride 0.9 % flush 10 mL 10 mL Intravenous PRN Sy De La Fuente APRN, DNP sodium chloride 0.9 % flush 10 mL 10 mL Intravenous q12h Jann Shen MD 10 mL at 05/01/25 0651 And sodium chloride 0.9 % flush 10 mL 10 mL Intravenous PRN Jann Shen MD [Transfer Hold] spironolactone (Aldactone) tablet 100 mg 100 mg Oral Daily Sy De La Fuente APRN, DNP 100 mg at 04/30/25 0953 [Transfer Hold] tamsulosin (Flomax) 24 hr capsule 0.4 mg 0.4 mg Oral Daily Sy De La Fuente APRN, DNP 0.4 mg at 04/30/25 0954 thrombin (recombinant) (Recothrom) topical solution PRN Mary Vicente MD 5,000 Units at 05/01/25 0825 [Transfer Hold] traZODone (Desyrel) tablet 100 mg 100 mg Oral Nightly Sy De La Fuente APRN, DNP 100mg at 04/30/25 2020 [Transfer Hold] venlafaxine XR (Effexor-XR) 24 hr capsule 150 mg 150 mg Oral Daily Sy De La Fuente APRN, DNP 150 mg at 04/30/25 0954 Facility-Administered Medications Ordered in Other Encounters Medication Dose Route Frequency Provider Last Rate Last Admin dexmedetomidine in NS (Precedex) 4 mcg/mL infusion Intravenous PRN Og Shah CRNA 8 mcg at 05/01/25 0841 fentaNYL (Sublimaze) injection Intravenous PRN Muzic, Og A, WORKERS COMPENSATION ADMINISTRATOR 25 mcg at 05/01/25 0826 lactated Ringer's infusion Intravenous Continuous PRN Muzic, Og A, WORKERS COMPENSATION ADMINISTRATOR New Bag at 05/01/25 0728 midazolam (Versed) injection Intravenous PRN Muzic, Og A, WORKERS COMPENSATION ADMINISTRATOR 1 mg at 05/01/25 0757 [2] Allergies Allergen Reactions Vancomycin Other - please document in the comment field Red man syndrome * Progress Notes - Aileen Leonardo APRN - 05/01/2025 8:43 AM EDT Endocrine - Diabetes Consult follow-up: Subjective: 24 hour update: -Patient to the OR today 05/01/25 for right 4th and 5th toe amputation -reduced dose of NPH given last evening -AM BG 222 -patient ate cake pop and turkey sandwich post surgery --> glucose up to 301 this afternoon. -NPH dose not administered this AM due to early surgery - re-ordered for this afternoon -overall good appetite and PO intake -patient requesting to see urology while inpatient - notified primary team - and other family members at bedside I have reviewed the patient's blood glucose levels, labs, vitals, and insulin doses administered inthe electronic medical record. Review of Systems Constitutional: Positive for activity change. Negative for appetite change. HENT: Negative for trouble swallowing. Respiratory: Negative for shortness of breath. Sleep apnea Cardiovascular: Negative for chest pain. Hx of heart failure Gastrointestinal: Positive for constipation. Negative for abdominal pain and nausea. Endocrine: See 24 hour update Wearing CGM Genitourinary: Barber in place Skin: Positive for wound (bilateral lower extremities). Psychiatric/Behavioral: Positive for sleep disturbance. Negative for agitation and confusion. Objective: Physical Exam Constitutional: General: He is not in acute distress. Appearance: He is obese. He is ill-appearing. HENT: Head: Normocephalic and atraumatic. Mouth/Throat: Mouth: Mucous membranes are moist. Eyes: Pupils: Pupils are equal, round, and reactive to light. Cardiovascular: Rate and Rhythm: Normal rate. Pulmonary: Effort: Pulmonary effort is normal. No respiratory distress. Comments: Nasal cannula Genitourinary: Comments: Suinl Musculoskeletal: General: No swelling. Skin: General: Skin is warm and dry. Findings: Lesion (bilateral lower extremities; new right toe amputation) present. Neurological: Mental Status: He is alert and oriented to person, place, and time. Mental status is at baseline. Psychiatric: Mood and Affect: Mood normal. Thought Content: Thought content normal. Judgment: Judgment normal. BP 122/74 Pulse 85 Temp 36.6 ??C (97.8 ??F) Resp 12 Ht 1.829 m (6') Wt (!) 257 kg (567 lb0.4 oz) Comment: patient off floor to OR BMI 76.90 kg/m?? Medications: Current Scheduled Medications[1] Current Continuous Medications[2] Current PRN Medications[3] Diet Dietary Orders (From admission, onward) Start Ordered 05/01/25 1020 Adult diet Diet texture: Regular; Carbohydrate restriction: Consistent Carb 1 (65 gm max/meal); Sodium restriction: 2,000 mg Na Diet effective now References: IDDSI Diet Texture Guide Question Answer Comment Diet texture Regular Carbohydrate restriction: Consistent Carb 1 (65 gm max/meal) Sodium restriction: 2,000 mg Na 05/01/25 1019 Lab Review: Results from last 7 days Lab Units 05/01/25 0214 SODIUM mmol/L 137 POTASSIUM mmol/L 3.4* CHLORIDE mmol/L 91* CO2 mmol/L 36* BUN mg/dL 9 CREATININE mg/dL 0.71 EGFR mL/min/1.73m*2 113.9 GLUCOSE mg/dL 266* CALCIUM mg/dL 8.6* Results from last 7 days Lab Units 05/01/25 0214 WBC 10*3/uL 6.96 HEMOGLOBIN g/dL 9.8* HEMATOCRIT % 32.5* PLATELETS 10*3/uL 218 Lab Results Component Value Date GLUCOSE 266 (H) 05/01/2025 GLUCOSE 254 (H) 04/30/2025 GLUCOSE 219 (H) 04/29/2025 PGLU 301 (H) 05/01/2025 PGLU 252 (H) 05/01/2025 PGLU 222 (H) 05/01/2025 PGLU 226 (H) 04/30/2025 PGLU 173 (H) 04/30/2025 PGLU 226 (H) 04/30/2025 PGLU 212 (H) 04/30/2025 PGLU 191 (H) 04/29/2025 I reviewed bg tracing in epic glucose timeline 05/01/25 ASSESSMENT Hospital Course: Gonzalo Smalls is a 49 y.o. male with hx of CHF, HTN, HLD, a.fib, type 2 DM [on U500 insulin], COPD, QUINN on nightly oxygen, recurrent UTIs, BPH, morbid obesity, and anxiety/depression. Patient presented to ED for evaluation of worsening right diabetic foot ulcer. Mr. Smalls presented to an OSH and Podiatry they are recommended to coming to for evaluation due to his size and delayed abilityto get him in the OR. Of note, Mr. Smalls is receiving enteral panel for recurrent UTI and has a chronic Barber. Per chart review it appears that the kidney infection is for ESBL E coli. ED lab work was significant for leukocytosis, anemia, hyperglycemia, hypokalemia, hypomagnesemia, elevated CRP and sed rate. 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 Hospital medicine was consulted for admission. Endocrine Diabetes team was consulted for glycemic management on 04/28/25. Patient on U500 insulin dosing at home. Daily Glucose and Insulin Total Daily Dose -consulted 04/28 AM BG 199 -04/30: 173-226, TDD 114 units -A1c: Lab Results Component Value Date HGBA1C 8.9 (H) 04/29/2025 -Diet: NPO 05/01, regular CC1 [65 g/meal] ordered this afternoon -Steroids: none Diagnoses #diabetic foot ulcer -OR 05/01 #UTI #obesity -BMI 81.99 -complicates all aspects of care - contributes to insulin resistance #diabetes mellitus - type 2 -Home medications: CGM: [employer] G7 Insulin regimen: U500 insulin: prescription for 225 units BID patient reports taking 200 units BID --> first dispensed 03/24/2025 - last dispensed 04/24/2025. insulin pen Reports being on U500 insulin for about 1 month and glycemic control has significantly improved Non insulin diabetes medications: Ozempic - recently started increased dose 0.5 mg this past week Metformin 100 mg BID Failed/Discontinued meds: Glargine: last dispensed 04/17/2025 Novolog mix last dispensed 02/22/2025 Jardiance Did not tolerate Mounjaro due to GI issues, constipation -see inpatient diabetes plan of care below PLAN: Primary team requesting recommendations and orders -After review of glucose trends and insulin delivery over the last 24 hours, titration of intensiveinsulin therapy was made to overall improve glycemic control and improve patient outcomes Current Hospital Regimen: Insulin regimen: Basal: 33 units , NPH, BID, increased to 35 units Bolus: 20 units lispro to cover meals, consider increase to 24 units -Give 1/2 dose if eating 25-50% of meal -HOLD if patient NPO or if patient eats less than 25% of meal -Please document % of meal consumed in intake and output flowsheet. Correction: very resistant dosing 3:50>150 lispro at mealtimes; 1;50>250 lispro bedtime, 3am PRN -Continue intensive glucose monitoring due to increased risk for hyper/hypoglycemia secondary to insulin therapy -Will continue to assess blood glucose trends and adjust basal/bolus insulin therapy dose according -fsbg ac/hs when eating, q6h when NPO, on TF/TPN -correction insulin to be given for hyperglycemia, do not hold correction if patient does not eat. -hypoglycemia protocol in place -Please document the percentage of meals consumed in intake and output flowsheet. -please notify us when diet orders change or steroids added as this impacts our tx NOTE: -Patient utilizes U500 insulin pen at home. With the U500 pen, a conversion is not needed. Typically patient's required a 70% reduction in home U500 dosing. 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 Please notify us as patient nears discharge for final recommendations Please contact Aileen Leonardo APRN [place] Adult Inpatient Diabetes team via secure chat orpage us at [phone] during 7a-7p, Thursday-Thursday. For after hours please contact the on-call Endocrine Fellow. Thank you for the opportunity to participate in this patient's care. - Reviewed notes by primary team and consulting services to determine appropriate plan of care as in the note. - Discussed plan and management with patient, family member, and bedside RN Time Spent: I personally spent a total of 33 minutes on this encounter. This time includes face to face with patient, counseling and discussion and/or coordination of care. [1] atorvastatin, 40 mg, Oral, Nightly bisoprolol, 5 mg, Oral, BID bumetanide, 4 mg, Oral, TID cariprazine, 3 mg, Oral, Daily DAPTOmycin, 10 mg/kg (Adjusted), Intravenous, q24h dilTIAZem CD, 120 mg, Oral, Daily gabapentin, 600 mg, Oral, TID insulin lispro, 0-15 Units, Subcutaneous, TID with meals insulin lispro, 0-3 Units, Subcutaneous, Twice at night Insulin Lispro, 20 Units, Subcutaneous, TID with meals insulin NPH (Isophane), 35 Units, Subcutaneous, BID meropenem, 2 g, Intravenous, q8h mupirocin, 1 Application, Each Nostril, BID pantoprazole, 40 mg, Oral, Daily before breakfast polyethylene glycol, 17 g, Oral, Daily [Held by provider] rivaroxaban, 20 mg, Oral, Daily sodium chloride, 10 mL, Intravenous, q12h spironolactone, 100 mg, Oral, Daily tamsulosin, 0.4 mg, Oral, Daily traZODone, 100 mg, Oral, Nightly venlafaxine XR, 150 mg, Oral, Daily [2] [3] PRN medications: acetaminophen, albuterol, glucose OR dextrose 10 % OR dextrose 10 % OR glucagon (human recombinant), ipratropium-albuterol, LORazepam, oxyCODONE, Insert peripheral IVAND Saline lock IV AND sodium chloride AND sodium chloride * Op Note - Paula Martinez MD - 05/01/2025 8:02 AM EDT Operative Note Date: 05/01/25 Location: [facility] Name: Gonzalo Smalls, : 1975, Diagnoses: Pre-op Diagnosis Other chronic osteomyelitis of right foot (CMS/HCC) Post-op Diagnosis Other chronic osteomyelitis of right foot (CMS/HCC) Procedure(s): Right 5th toe ray amputation Attending Surgeon(s): * Mary Vicente - Primary Research Engineer(s): * Paula Martinez MD - Resident - Assisting Anesthesia: Choice ASA: IV Blood Administration: Blood Product Administration History None Estimated Blood Loss: 200cc Drains: Urethral Catheter (Active) Site Assessment Clean;Skin intact 05/01/25909 CAUTI: Collection Container Standard drainage bag;Collection container below bladder and tubing free of kinks 05/01/25909 CAUTI: Securement Method Securing device (Describe) 05/01/25909 CAUTI: Specimen Collection Port Covered with Alcohol Cap Yes 05/01/25909 CAUTI: Urinary Catheter Indication Yes, meets indication reason 05/01/25909 CAUTI: Urinary Catheter Indication Reasons Documented acute urinary retention or obstruction 05/01/25909 Output (mL) 600 mL 05/01/25909 Specimen: Specimens ID Source Frozen? 1 Toe, Right No Description: R 5th toe 2 Toe, Right No Description: R 5th toe margin Findings: obvious destruction of the 5th metatarsal head, venous hypertension causing significant ooze and bleeding Indications: Gonzalo Smalls is an 49 y.o. male who is having surgery for Other chronic osteomyelitis of right foot (CMS/HCC). Risks, benefits, and alternatives discussed with the patient and he wished to proceed with right 5th and possible 4th toe amputation. Narrative: The patient was brought to the operating room and transferred to the operating room table. The patient received a pre operative limb block. SCDs were placed and verified to be on. Appropriate pre-operative antibiotics were administered. The right foot was prepped and draped in the usual sterile fashion. A time out was performed ensuring the correct patient and procedure. We began by making an incision around the 5th toe and along the margin of the wound bed. This extended more than fpc to the heel laterally. The underlying skin and soft tissue were opened to expose the right 5th metatarsal head. A plane was generated between the 5th and 4th ray and taken down to the base. The 5th way was taken with a bone saw just distal to the base. It was beveled to be flush with the wound bed. The rest of the bone, soft tissue, and skin were taken en bloc and sent off asspecimen. The beveled portion was sent off as proximal margin. The bone appeared healthy at this level. Several figure of eight sutures were used to control bleeding vessels. He had significant bleeding secondary to venous hypertension from body habitus. Thrombin gel, surgicel, and cautery were used to attain hemostasis. One piece of surgicel was laid in the wound bed along the bone. Xeroform, 4x4, kerlix wrap x 2, and mary compression dressing were used to dress the wound. All counts were correct at the end of the case. The patient was awoken and taken to PACU in stable condition. Dr. Vicente was present for all portions of the case. At the time of surgery, the following signs of infection were present: osteomyelitis. Complications: None; patient tolerated the procedure well. Submitted by: Paula Martinez MD - 05/01/2025 Cosigned by Mary Vicente MD at 05/03/2025 8:49 AM EDT * Significant Event - Leidy Velasco MD - 05/01/2025 6:19 AM EDT Patient to the OR today 05/01/25 for right 4th and 5th toe amputation - History and physical note at admission/Most recent progress note reviewed and with no significantchanges noted - The risks, benefits, indications, contraindications, and surgical alternatives have been explained to the patient. The patient participated in the discussion and was given an opportunity to ask questions. All questions answered. -Written informed consent signed and located in the patient's chart. - NPO since midnight Leidy Velasco MD General Surgery Resident * Care Plan - Rodrick Oconnell RN - 05/01/2025 12:09 AM EDT Problem: Skin Injury Risk Increased Goal: Skin Health and Integrity Outcome: Ongoing, Progressing Problem: Adult Inpatient Plan of Care Goal: Plan of Care Review Outcome: Ongoing, Progressing Flowsheets (Taken 05/01/20253) Progress: improving Plan of Care Reviewed With: patient Goal: Patient-Specific Goal (Individualized) Outcome: Ongoing, Progressing Flowsheets (Taken 04/30/20252199) Patient/Family-Specific Goals (Include Timeframe): Patient will perform q2 hour position changes/weight shifting with nursing prompts, this shift. Individualized Care Needs: none stated Anxieties, Fears or Concerns: none stated Goal: Absence of Hospital-Acquired Illness or Injury Outcome: Ongoing, Progressing Intervention: Identify and Manage Fall Risk Flowsheets (Taken 05/01/20253) Safety Promotion/Fall Prevention: clutter-free environment maintained safety round/check completed Intervention: Prevent Skin Injury Flowsheets (Taken 04/30/20252199) Body Position: weight shifting Skin Protection: incontinence pads utilized Intervention: Prevent and Manage VTE (Venous Thromboembolism) Risk Flowsheets (Taken 05/01/20253) VTE Prevention/Management: medication Intervention: Prevent Infection Flowsheets (Taken 05/01/20253) Infection Prevention: environmental surveillance performed hand hygiene promoted rest/sleep promoted Goal: Optimal Comfort and Wellbeing Outcome: Ongoing, Progressing Intervention: Monitor Pain and Promote Comfort Flowsheets (Taken 05/01/20253) Pain Management Interventions: care clustered pillow support provided Intervention: Provide Person-Centered Care Flowsheets (Taken 05/01/20253) Trust Relationship/Rapport: care explained choices provided questions encouraged Problem: Fall Injury Risk Goal: Absence of Fall and Fall-Related Injury Outcome: Ongoing, Progressing Intervention: Identify and Manage Contributors Flowsheets (Taken 05/01/20253) Medication Review/Management: medications reviewed Self-Care Promotion: independence encouraged Intervention: Promote Injury-Free Environment Flowsheets (Taken 05/01/20253) Safety Promotion/Fall Prevention: clutter-free environment maintained safety round/check completed Problem: Infection Goal: Absence of Infection Signs and Symptoms Outcome: Ongoing, Progressing Intervention: Prevent or Manage Infection Flowsheets (Taken 05/01/20253) Fever Reduction/Comfort Measures: lightweight bedding lightweight clothing Isolation Precautions: precautions maintained protective Problem: Mobility Impairment Goal: Optimal Mobility Outcome: Ongoing, Progressing Intervention: Optimize Mobility Flowsheets (Taken 05/01/20253) Activity Management: activity adjusted per tolerance Positioning/Transfer Devices: pillows Problem: Mobility Impairment Goal: Optimal Mobility Outcome: Ongoing, Progressing Intervention: Optimize Mobility Flowsheets (Taken 05/01/20253) Activity Management: activity adjusted per tolerance Positioning/Transfer Devices: pillows Problem: Diabetes Goal: Optimal Coping Outcome: Ongoing, Progressing Intervention: Support Wellbeing and Self-Management Success Flowsheets (Taken 05/01/20253) Supportive Measures: active listening utilized self-care encouraged Family/Support System Care: presence promoted Goal: Optimal Functional Ability Outcome: Ongoing, Progressing Intervention: Optimize Functional Ability Flowsheets (Taken 05/01/20253) Activity Management: activity adjusted per tolerance Self-Care Promotion: independence encouraged Goal: Blood Glucose Level Within Target Range Outcome: Ongoing, Intervention: Optimize Glycemic Control Flowsheets (Taken 05/01/20253) Hyperglycemia Management: blood glucose monitored Goal: Minimize Hypoglycemia Risk Outcome: Ongoing, Progressing Intervention: Minimize and Manage Hypoglycemia Flowsheets (Taken 05/01/20253) Hypoglycemia Management: blood glucose monitored * Progress Notes - Marjorie Myers MD - 04/30/2025 4:55 PM EDT Subjective Plan for surgery with vas in am Pain in the right foot , continue current pain Mx for now Review of Systems Pain in right foot Objective Vitals Temp: [36.6 ??C (97.8 ??F)-37.1 ??C (98.8 ??F)] 36.6 ??C (97.9 ??F) Heart Rate: [66-80] 70 Resp: [15-18] 18 BP: (119-150)/(63-78) 150/68 Physical Exam Physical Exam Vitals and nursing note reviewed. Constitutional: General: Not in acute distress. Appearance: Normal appearance. HENT: Head: Normocephalic and atraumatic. Nose: No congestion or rhinorrhea. Mouth/Throat: Mouth: Mucous membranes are moist. Pharynx: Oropharynx is clear. No posterior oropharyngeal erythema. Eyes: General: No scleral icterus. Extraocular Movements: Extraocular movements intact. Conjunctiva/sclera: Conjunctivae normal. Cardiovascular: Rate and Rhythm: Normal rate. Heart sounds: Normal heart sounds. No murmur heard. No gallop. Pulmonary: Breath sounds: Normal breath sounds. No wheezing or rales. Abdominal: General: Bowel sounds are normal. There is no distension. Palpations: Abdomen is soft. Tenderness: There is no abdominal tenderness. Musculoskeletal: Right foot with dressing Chronic skin changes in the left LE Skin: General: Skin is warm and dry. Neurological: General: No focal deficit present. Mental Status: Alert and oriented to person, place, and time. Psychiatric: Mood and Affect: Mood normal. Thought Content: Thought content normal. 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 #Chronic Right Diabetic Foot Ulcer - CT, right foot: soft tissue defect along the dorsal lateral foot and open comminuted fracture, and irregularity of 5th metatarsal with findings compatible for osteomyelitis. Mood discrete abscess - XR, right foot: Chronic ulcer in the lateral forefoot with adjacent osseous destruction and erosion of the 5th MTP - CRP: 82.6, Sed Rate >100 - ABIs with normal - MRI w/ contrast cannot be done given the weight limit - ID consulted and rec : meropenam and daptomycin - vas team consulted and rec amputation vs transfer to [facility] for podiatry input about foot salvage : cannot transfer to [facility] given weight limit, pod team cannot come to . Plan is to get foot debridement with possible 5th and 4th toe amputation on 05/01. NPO MN and hold the xarelto #Type 2 DM #Neuropathy - home regimen: Metformin 1 g BID Regular Insulin 225 units BID - home meds: Gabapentin 600 mg TID - DM team consulted - FSBS per protocol - 2CC diet #UTI #Recurrent UTI #BPH - Barber in place due to in an adequate bladder emptying - home meds: Flomax Plan - Barber care per protocol - Continue home Flomax #HTN - bisoprolol 5 mg BID #Afib - Xarelto 20 mg daily, diltiazem 120 mg daily; hold Xarelto pending possible procedures #CHF - echo, 09/13/24: 50%, Bumex 4 mg TID, spironolactone 100 mg daily #HLD - atorvastatin 40 mg daily #COPD - albuterol inhaler 2 puffs q.4 PRN #Anxiety/Depression - Vraylar 3 mg BID, lorazepam 1 mg daily, venlafaine 150 mg daily, #insomnia - trazodone #Chronic low back pain - norco 10-325; hold #GERD - omeprazole 40 mg twice daily #Morbid Obesity - failed gastric sleeve, Ozempic, BMI 81.99, complicates all aspects of care #QUINN - 2 L nasal cannula at night Medically Ready for Discharge:Anticipated in 5+ Days * Care Plan - Radha Saavedra RN - 04/30/2025 2:54 PM EDT Problem: Skin Injury Risk Increased Goal: Skin Health and Integrity Outcome: Ongoing, Progressing Intervention: Optimize Skin Protection Flowsheets (Taken 04/30/20251451) Activity Management: activity adjusted per tolerance Pressure Reduction Techniques: frequent weight shift encouraged weight shift assistance provided Pressure Reduction Devices: pressure-redistributing mattress utilized Skin Protection: incontinence pads utilized Head of Bed (HOB) Positioning: HOB elevated Intervention: Promote and Optimize Oral Intake Flowsheets (Taken 04/30/20251451) Oral Nutrition Promotion: rest periods promoted Problem: Adult Inpatient Plan of Care Goal: Optimal Comfort and Wellbeing Outcome: Ongoing, Progressing Intervention: Monitor Pain and Promote Comfort Flowsheets (Taken 04/30/20251451) Pain Management Interventions: medication (see MAR) care clustered diversional activity provided quiet environment facilitated Intervention: Provide Person-Centered Care Flowsheets (Taken 04/30/20251451) Trust Relationship/Rapport: care explained choices provided questions answered questions encouraged Problem: Infection Goal: Absence of Infection Signs and Symptoms Outcome: Ongoing, Progressing Intervention: Prevent or Manage Infection Flowsheets Taken 04/30/20251451 Infection Management: aseptic technique maintained Fever Reduction/Comfort Measures: lightweight bedding lightweight clothing Taken 04/30/2025 0800 Isolation Precautions: protective precautions maintained * Progress Notes - Ivory Samuels MBBS - 04/30/2025 2:23 PM EDT Endocrine - Diabetes Consult follow-up: Subjective: Patient seen and examined. Doing okay. Denied any new complaints. No acute events overnight. AM blood glucose->200 Hypoglycemia events-none Steroids-none Objective- BP 119/63 (BP Location: Right arm, Patient Position: Lying) Pulse 66 Temp 36.6 ??C (97.8 ??F) (Oral) Resp 18 Ht 1.829 m (6') Wt (!) 257 kg (567 lb 0.4 oz) BMI 76.90 kg/m?? Labs and medications reviewed. Blood glucose [id number] Medications: Current Scheduled Medications[1] Current Continuous Medications[2] Current PRN Medications[3] Diet: Dietary Orders (From admission, onward) Start Ordered 05/01/25 0001 NPO diet Diet effective midnight 04/30/25 1052 04/28/25 1329 Adult diet Diet texture: Regular; Carbohydrate restriction: Consistent Carb 1 (65 gm max/meal); Sodium restriction: 2,000 mg Na Diet effective now References: IDDSI Diet Texture Guide Question Answer Comment Diet texture Regular Carbohydrate restriction: Consistent Carb 1 (65 gm max/meal) Sodium restriction: 2,000 mg Na 04/28/25 1328 Lab Review: Results from last 7 days Lab Units 04/30/25 0319 SODIUM mmol/L 137 POTASSIUM mmol/L 3.3* CHLORIDE mmol/L 91* CO2 mmol/L 36* BUN mg/dL 11 CREATININE mg/dL 0.77 EGFR mL/min/1.73m*2 111.1 GLUCOSE mg/dL 254* CALCIUM mg/dL 8.7* Results from last 7 days Lab Units 04/30/25 0319 WBC 10*3/uL 8.84 HEMOGLOBIN g/dL 9.6* HEMATOCRIT % 32.6* PLATELETS 10*3/uL 245 Lab Results Component Value Date GLUCOSE 254 (H) 04/30/2025 GLUCOSE 219 (H) 04/29/2025 GLUCOSE 135 (H) 04/27/2025 PGLU 226 (H) 04/30/2025 PGLU 212 (H) 04/30/2025 PGLU 191 (H) 04/29/2025 PGLU 241 (H) 04/29/2025 PGLU 204 (H) 04/29/2025 PGLU 269 (H) 04/29/2025 PGLU 212 (H) 04/28/2025 PGLU 213 (H) 04/28/2025 Lab Results Component Value Date HGBA1C 8.9 (H) 04/29/2025 HGBA1C 10.9 (H) 12/12/2024 HGBA1C 7.4 01/13/2024 I have independently reviewed and interpreted the patient's blood glucose levels in Epic timeline, labs, vitals, and insulin doses administered in the electronic medical record. ASSESSMENT / PLAN: Diagnoses #diabetic foot ulcer #UTI #obesity -BMI 81.99 -complicates all aspects of care - contributes to insulin resistance #diabetes mellitus - type 2 -Home medications: see HPI -see inpatient diabetes plan of care below Daily Glucose and Insulin Total Daily Dose -consulted 10 AM BG 199 -A1c: Lab Results Component Value Date HGBA1C 10.9 (H) 12/12/2024 -Steroids: none -Diet: regular Plan Primary team requests recommendations and orders -Patient utilizes U500 insulin pen at home. With the U500 pen, a conversion is not needed. Typically patient's required a 70% reduction in home U500 dosing. Taking into account weight-based dosing and home dosing the following insulin regimen was added [basal/bolus]. -After review of glucose trends and insulin delivery over the last 24 hours, titration of intensiveinsulin therapy was made to overall improve glycemic control and improve patient outcomes Current Hospital Regimen: Insulin regimen: Basal: 30 units , NPH, BID Bolus: 20 units lispro to cover meals -Give 1/2 dose if eating 25-50% of meal -HOLD if patient NPO or if patient eats less than 25% of meal -Please document % of meal consumed in intake and output flowsheet. Correction: very resistant dosing 3:50>150 lispro at mealtimes; 1;50>250 lispro bedtime, 3am PRN Diabetes management plan 04/30/2025 Blood sugars not at goal. Will increase NPH to 33 units bid. -Continue intensive glucose monitoring due to increased risk for hyper/hypoglycemia secondary to insulin therapy -Will continue to assess blood glucose trends and adjust basal/bolus insulin therapy dose according-fsbg ac/hs when eating, q6h when NPO, on TF/TPN -correction insulin to be given for hyperglycemia, do not hold correction if patient does not eat. -hypoglycemia protocol in place -Please document the percentage of meals consumed in intake and output flowsheet. 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 Please notify us as patient nears discharge for final recommendations Ivory Samuels, PGY-4 Division of Endocrinology, Diabetes and Metabolism [facility] Medically Ready for Discharge: [1] atorvastatin, 40 mg, Oral, Nightly bisoprolol, 5 mg, Oral, BID bumetanide, 4 mg, Oral, TID cariprazine, 3 mg, Oral, Daily DAPTOmycin, 10 mg/kg (Adjusted), Intravenous, q24h dilTIAZem CD, 120 mg, Oral, Daily gabapentin, 600 mg, Oral, TID insulin lispro, 0-15 Units, Subcutaneous, TID with meals insulin lispro, 0-3 Units, Subcutaneous, Twice at night Insulin Lispro, 20 Units, Subcutaneous, TID with meals insulin NPH (Isophane), 33 Units, Subcutaneous, BID meropenem, 2 g, Intravenous, q8h mupirocin, 1 Application, Each Nostril, BID pantoprazole, 40 mg, Oral, Daily before breakfast polyethylene glycol, 17 g, Oral, Daily [Held by provider] rivaroxaban, 20 mg, Oral, Daily sodium chloride, 10 mL, Intravenous, q12h spironolactone, 100 mg, Oral, Daily tamsulosin, 0.4 mg, Oral, Daily traZODone, 100 mg, Oral, Nightly venlafaxine XR, 150 mg, Oral, Daily [2] [3] PRN medications: acetaminophen, albuterol, glucose OR dextrose 10 % OR dextrose 10 % OR glucagon (human recombinant), ipratropium-albuterol, LORazepam, oxyCODONE, Insert peripheral IVAND Saline lock IV AND sodium chloride AND sodium chloride Cosigned by Raza Méndez MD at 04/30/2025 7:56 PM EDT Associated attestation - Raza Méndez MD - 04/30/2025 7:56 PM EDT I saw and evaluated the patient with the resident/fellow. I discussed the case with the resident/fellow and agree with the findings and plan as documented. * Progress Notes - Alejandra Arndt MD - 04/30/2025 12:55 PM EDT Images from the original note were not included. [facility] Department of Surgery Division of Vascular Surgery Surgery Progress Note 04/30/25 Gonzalo Smalls Subjective Subjective: HPI 49 y.o.male Dx: Diabetic foot ulcer Operations: (Date Operation Attending): Dr. Vicente tomorrow() for toe amp AC/AP: none, holding home Xarelto Pulse Exam: Bilateral DP and PT monophasic by Doppler Ongoing Acute Problems: OM Important Chronic Problems: CHF (EF 55% in 2021), paroxsymal atrial fibrillation (on Xarelto), HTN,HLD, T2DM, COPD, QUINN on 2LNC Comments: 5th OM desires limb salvage, Dr. Ibarra to discuss with POD Patient not amenable to amputation, He is unable to be transferred to [facility] for Podiatry due to weight Edited by: Alejandra Arndt MD at 04/30/2025 1255 Review of Systems: Relevant review of systems was obtained as able and is negative unless stated above in HPI. Objective Objective: Vital signs: Vitals: 04/30/25 1208 BP: 119/63 Pulse: 66 Resp: Temp: 36.6 ??C (97.8 ??F) SpO2: 97% Physical Exam: Physical Exam Constitutional: General: He is not in acute distress. Appearance: He is obese. HENT: Head: Normocephalic. Cardiovascular: Rate and Rhythm: Normal rate. Pulses: Dorsalis pedis pulses are 1+ on the right side and 1+ on the left side. Posterior tibial pulses are detected w/ Doppler on the right side and detected w/ Doppler on the left side. Musculoskeletal: Right lower leg: Edema present. Left lower leg: Edema present. Feet: Comments: Wound overlying the lateral aspect of right foot with exposed bone and purulence Neurological: Mental Status: He is alert. Intake/Output Summary (Last 24 hours) at 04/30/2025 1255 Last data filed at 04/30/2025 1100 Gross per 24 hour Intake 270 ml Output 6575 ml Net -6305 ml Lines/Drains/Tubes: Patient Lines/Drains/Airways Status Active Airway None Output by Drain (mL) 04/28/25 0700 - 04/28/25 1859 04/28/25 1900 - 04/29/25 0659 04/29/25 0700 - 04/29/25 1859 04/29/25 1900 - 04/30/25 0659 04/30/25 0700 - 04/30/25 1255 Requested LDAs do not have output data documented. Labs in last 18 hours: CBC WBC 8.84 Hb 9.6 (L) Plt 245 Hct 32.6 (L) ANC 6.90 (H) INR ??, PTT ??, Anti-Xa ?? MCV 76 (L) BMP Na 137 Cl 91 (L) BUN 11 Glu 254 (H) K 3.3 (L) Co2 36 (H) Cr 0.77 Ca 8.7 (L) iCa ?? Mg 1.5 (L), Phos 2.7 Lactate ?? LFT AST ?? AlkPhos ?? T Prot ?? ALK ?? Bili ?? Alb ?? D.Bili ?? Lab Trends: H/H Results from last 7 days Lab Units 04/30/25 0319 04/29/25 0304 04/27/25 2137 HEMOGLOBIN g/dL 9.6* 9.4* 10.4* HEMATOCRIT % 32.6* 32.0* 33.3* INR Results from last 7 days Lab Units 04/28/25 0813 INR 1.4* Cr Results from last 7 days Lab Units 04/30/25 0319 04/29/25 0304 04/27/25 2137 CREATININE mg/dL 0.77 0.94 0.84 Medications reviewed. Vital signs reviewed. Labs reviewed. Assessment/Plan Assessment and Plan: Gonzalo Smalls is a 49 y.o. male with PMHx notable for class III obesity, CHF (EF 55% in 2021), paroxsymal atrial fibrillation (on Xarelto), HTN, HLD, T2DM, COPD, QUINN on 2LNC at night, recurrent UTIswho presented to [facility] with nonhealing right foot wound. Radiographs significant for cortical degeneration of fifth metatarsal and exam with evidence of exposed bone; high degree of suspicion for osteomyelitis Plan for foot debridement with possible 5th and 4th toe amputation tomorrow. Plan: -Please make the pt NPO tonight Edited by: Leidy Velasco MD at 04/29/2025 1812 Dispo: Continue Current Level of Care Alejandra Arndt MD Cosigned by Chris Schaefer MD at 04/30/2025 1:16 PM EDT Associated attestation - Chris Schaefer MD - 04/30/2025 1:16 PM EDT I saw and evaluated the patient with the resident/fellow. I discussed the case with the resident/fellow and agree with the findings and plan as documented. * Care Plan - Brittny Fung RN - 04/30/2025 5:05 AM EDT Problem: Adult Inpatient Plan of Care Goal: Plan of Care Review Outcome: Ongoing, Progressing Flowsheets (Taken 04/30/2025 0502) Progress: improving Plan of Care Reviewed With: patient Goal: Patient-Specific Goal (Individualized) Outcome: Ongoing, Progressing Flowsheets (Taken 04/29/20251999) Patient/Family-Specific Goals (Include Timeframe): Patient will receive wound care and education onthe plan of care. Individualized Care Needs: Wound care Anxieties, Fears or Concerns: Care plan Goal: Absence of Hospital-Acquired Illness or Injury Outcome: Ongoing, Progressing Intervention: Identify and Manage Fall Risk Flowsheets (Taken 04/30/2025 0400) Safety Promotion/Fall Prevention: activity supervised clutter-free environment maintained fall prevention program maintained lighting adjusted room organization consistent safety round/check completed Goal: Optimal Comfort and Wellbeing Outcome: Ongoing, Progressing Intervention: Monitor Pain and Promote Comfort Flowsheets (Taken 04/30/2025 0506) Pain Management Interventions: medication (see MAR) care clustered quiet environment facilitated rest Problem: Fall Injury Risk Goal: Absence of Fall and Fall-Related Injury Outcome: Ongoing, Progressing Intervention: Promote Injury-Free Environment Flowsheets (Taken 04/30/2025 0400) Safety Promotion/Fall Prevention: activity supervised clutter-free environment maintained fall prevention program maintained lighting adjusted room organization consistent safety round/check completed Problem: Infection Goal: Absence of Infection Signs and Symptoms Outcome: Ongoing, Progressing Intervention: Prevent or Manage Infection Flowsheets Taken 04/30/2025 0502 Infection Management: aseptic technique maintained Fever Reduction/Comfort Measures: lightweight bedding Taken 04/30/2025 0400 Isolation Precautions: protective precautions maintained Problem: Mobility Impairment Goal: Optimal Mobility Outcome: Ongoing, Progressing Intervention: Optimize Mobility Flowsheets (Taken 04/30/2025 0502) Activity Management: activity adjusted per tolerance Assistive Device Utilized: cane Problem: Diabetes Goal: Optimal Coping Outcome: Ongoing, Progressing Intervention: Support Wellbeing and Self-Management Success Flowsheets (Taken 04/30/2025 0504) Supportive Measures: active listening utilized self-care encouraged Family/Support System Care: presence promoted Goal: Optimal Functional Ability Outcome: Ongoing, Progressing Intervention: Optimize Functional Ability Flowsheets (Taken 04/30/2025 0504) Activity Management: activity adjusted per tolerance Activity Assistance Provided: assistance, 3 or more people Self-Care Promotion: BADL personal objects within reach adaptive equipment use encouraged Goal: Blood Glucose Level Within Target Range Outcome: Ongoing, Progressing Intervention: Optimize Glycemic Control Flowsheets (Taken 04/30/2025 0504) Hyperglycemia Management: blood glucose monitored Goal: Minimize Hypoglycemia Risk Outcome: Ongoing, Progressing Intervention: Minimize and Manage Hypoglycemia Flowsheets (Taken 04/30/2025 0504) Hypoglycemia Management: blood glucose monitored * Progress Notes - Ivory Samuels MBBS - 04/29/2025 3:01 PM EDT Endocrine - Diabetes Consult follow-up: Subjective: Patient seen and examined. Doing okay. Denied any new complaints. No acute events overnight. AM blood glucose-219 Hypoglycemia events-none Steroids-none Objective- BP 130/80 (BP Location: Right arm, Patient Position: Lying) Pulse 68 Temp 36.9 ??C (98.4 ??F) (Oral) Resp 17 Ht 1.829 m (6') Wt (!) 274 kg (604 lb 1 oz) BMI 81.93 kg/m?? Labs and medications reviewed. Blood glucose [id number] Medications: Current Scheduled Medications[1] Current Continuous Medications[2] Current PRN Medications[3] Diet: Dietary Orders (From admission, onward) Start Ordered 04/28/25 1329 Adult diet Diet texture: Regular; Carbohydrate restriction: Consistent Carb 1 (65 gm max/meal); Sodium restriction: 2,000 mg Na Diet effective now References: IDDSI Diet Texture Guide Question Answer Comment Diet texture Regular Carbohydrate restriction: Consistent Carb 1 (65 gm max/meal) Sodium restriction: 2,000 mg Na 04/28/25 1328 Lab Review: Results from last 7 days Lab Units 04/29/25 0304 SODIUM mmol/L 137 POTASSIUM mmol/L 3.1* CHLORIDE mmol/L 92* CO2 mmol/L 38* BUN mg/dL 9 CREATININE mg/dL 0.94 EGFR mL/min/1.73m*2 100.6 GLUCOSE mg/dL 219* CALCIUM mg/dL 8.6* Results from last 7 days Lab Units 04/29/25 0304 WBC 10*3/uL 6.68 HEMOGLOBIN g/dL 9.4* HEMATOCRIT % 32.0* PLATELETS 10*3/uL 249 Lab Results Component Value Date GLUCOSE 219 (H) 04/29/2025 GLUCOSE 135 (H) 04/27/2025 GLUCOSE 301 (H) 12/16/2024 PGLU 204 (H) 04/29/2025 PGLU 269 (H) 04/29/2025 PGLU 212 (H) 04/28/2025 PGLU 213 (H) 04/28/2025 PGLU 209 (H) 04/28/2025 PGLU 271 (H) 04/28/2025 PGLU 271 (H) 04/28/2025 PGLU 199 (H) 04/28/2025 Lab Results Component Value Date HGBA1C 8.9 (H) 04/29/2025 HGBA1C 10.9 (H) 12/12/2024 HGBA1C 7.4 01/13/2024 I have independently reviewed and interpreted the patient's blood glucose levels in Epic timeline, labs, vitals, and insulin doses administered in the electronic medical record. ASSESSMENT / PLAN: Diagnoses #diabetic foot ulcer #UTI #obesity -BMI 81.99 -complicates all aspects of care - contributes to insulin resistance #diabetes mellitus - type 2 -Home medications: see HPI -see inpatient diabetes plan of care below Daily Glucose and Insulin Total Daily Dose -consulted 10 AM BG 199 -A1c: Lab Results Component Value Date HGBA1C 10.9 (H) 12/12/2024 -Steroids: none -Diet: regular Plan Primary team requests recommendations and orders -Patient utilizes U500 insulin pen at home. With the U500 pen, a conversion is not needed. Typically patient's required a 70% reduction in home U500 dosing. Taking into account weight-based dosing and home dosing the following insulin regimen was added [basal/bolus]. -After review of glucose trends and insulin delivery over the last 24 hours, titration of intensiveinsulin therapy was made to overall improve glycemic control and improve patient outcomes Current Hospital Regimen: Insulin regimen: Basal: 30 units , NPH, BID Bolus: 20 units lispro to cover meals -Give 1/2 dose if eating 25-50% of meal -HOLD if patient NPO or if patient eats less than 25% of meal -Please document % of meal consumed in intake and output flowsheet. Correction: very resistant dosing 3:50>150 lispro at mealtimes; 1;50>250 lispro bedtime, 3am PRN Diabetes management plan 04/29/2025 No changes in regimen today as patient did not get all the doses on insulin that was ordered yesterday. Will reassess tomorrow and make changes as needed. -Continue intensive glucose monitoring due to increased risk for hyper/hypoglycemia secondary to insulin therapy -Will continue to assess blood glucose trends and adjust basal/bolus insulin therapy dose according-fsbg ac/hs when eating, q6h when NPO, on TF/TPN -correction insulin to be given for hyperglycemia, do not hold correction if patient does not eat. -hypoglycemia protocol in place -Please document the percentage of meals consumed in intake and output flowsheet. 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 Please notify us as patient nears discharge for final recommendations Ivory Samuels, PGY-4 Division of Endocrinology, Diabetes and Metabolism [facility] [1] atorvastatin, 40 mg, Oral, Nightly bisoprolol, 5 mg, Oral, BID bumetanide, 4 mg, Oral, TID cariprazine, 3 mg, Oral, Daily DAPTOmycin, 10 mg/kg (Adjusted), Intravenous, q24h dilTIAZem CD, 120 mg, Oral, Daily gabapentin, 600 mg, Oral, TID insulin lispro, 0-15 Units, Subcutaneous, TID with meals insulin lispro, 0-3 Units, Subcutaneous, Twice at night Insulin Lispro, 20 Units, Subcutaneous, TID with meals insulin NPH (Isophane), 30 Units, Subcutaneous, BID meropenem, 2 g, Intravenous, q8h mupirocin, 1 Application, Each Nostril, BID pantoprazole, 40 mg, Oral, Daily before breakfast polyethylene glycol, 17 g, Oral, Daily [Held by provider] rivaroxaban, 20 mg, Oral, Daily sodium chloride, 10 mL, Intravenous, q12h spironolactone, 100 mg, Oral, Daily tamsulosin, 0.4 mg, Oral, Daily traZODone, 100 mg, Oral, Nightly venlafaxine XR, 150 mg, Oral, Daily [2] [3] PRN medications: acetaminophen, albuterol, glucose OR dextrose 10 % OR dextrose 10 % OR glucagon (human recombinant), ipratropium-albuterol, LORazepam, oxyCODONE, Insert peripheral IVAND Saline lock IV AND sodium chloride AND sodium chloride Cosigned by Raza Méndez MD at 04/30/2025 7:13 PM EDT Associated attestation - Raza Méndez MD - 04/30/2025 7:13 PM EDT I saw and evaluated the patient with the resident/fellow. I discussed the case with the resident/fellow and agree with the findings and plan as documented. * Progress Notes - Marjorie Myers MD - 04/29/2025 12:58 PM EDT Subjective He has pain in the right foot -- oxy increased to q 4 hr today Pt does not wish to get the amputation I have talked with vas team and they only rec amputation but we can transfer to [facility] for pod input about the surgery for the DM wound Vas team do not feel a debridement would sufficiently treat his wound. Reached out to APT team and plan to transfer him to [facility] Review of Systems Pain in right foot Objective Vitals Temp: [36.7 ??C (98 ??F)-36.8 ??C (98.3 ??F)] 36.8 ??C (98.3 ??F) Heart Rate: [76-87] 76 Resp: [14-26] 14 BP: (132-151)/(60-83) 133/83 Physical Exam Physical Exam Vitals and nursing note reviewed. Constitutional: General: Not in acute distress. Appearance: Normal appearance. HENT: Head: Normocephalic and atraumatic. Nose: No congestion or rhinorrhea. Mouth/Throat: Mouth: Mucous membranes are moist. Pharynx: Oropharynx is clear. No posterior oropharyngeal erythema. Eyes: General: No scleral icterus. Extraocular Movements: Extraocular movements intact. Conjunctiva/sclera: Conjunctivae normal. Cardiovascular: Rate and Rhythm: Normal rate. Heart sounds: Normal heart sounds. No murmur heard. No gallop. Pulmonary: Breath sounds: Normal breath sounds. No wheezing or rales. Abdominal: General: Bowel sounds are normal. There is no distension. Palpations: Abdomen is soft. Tenderness: There is no abdominal tenderness. Musculoskeletal: Right foot with dressing Chronic skin changes in the left LE Skin: General: Skin is warm and dry. Neurological: General: No focal deficit present. Mental Status: Alert and oriented to person, place, and time. Psychiatric: Mood and Affect: Mood normal. Thought Content: Thought content normal. Assessment & Plan Diabetic foot ulcer Morbid obesity (CMS/HCC) Hypertension Type 2 diabetes Neuropathy CHF (congestive heart failure) COPD (chronic obstructive pulmonary disease) Depression Diabetic neuropathy Insomnia Lower back pain S/P gastric sleeve procedure Diabetic foot ulcer with osteomyelitis #Chronic Right Diabetic Foot Ulcer - CT, right foot: soft tissue defect along the dorsal lateral foot and open comminuted fracture, and irregularity of 5th metatarsal with findings compatible for osteomyelitis. Mood discrete abscess - XR, right foot: Chronic ulcer in the lateral forefoot with adjacent osseous destruction and erosion of the 5th MTP - CRP: 82.6, Sed Rate >100 - ABIs with normal - MRI w/ contrast cannot be done given the weight limit - ID consulted and rec : meropenam and daptomycin - vas team consulted and rec amputation vs transfer to [facility] for podiatry input about foot salvage - transfer is initiated today #Type 2 DM #Neuropathy - home regimen: Metformin 1 g BID Regular Insulin 225 units BID - home meds: Gabapentin 600 mg TID - DM team consulted - FSBS per protocol - 2CC diet #UTI #Recurrent UTI #BPH - Barber in place due to in an adequate bladder emptying - home meds: Flomax Plan - Barber care per protocol - Continue home Flomax #HTN - bisoprolol 5 mg BID #Afib - Xarelto 20 mg daily, diltiazem 120 mg daily; hold Xarelto pending possible procedures #CHF - echo, 09/13/24: 50%, Bumex 4 mg TID, spironolactone 100 mg daily #HLD - atorvastatin 40 mg daily #COPD - albuterol inhaler 2 puffs q.4 PRN #Anxiety/Depression - Vraylar 3 mg BID, lorazepam 1 mg daily, venlafaine 150 mg daily, #insomnia - trazodone #Chronic low back pain - norco 10-325; hold #GERD - omeprazole 40 mg twice daily #Morbid Obesity - failed gastric sleeve, Ozempic, BMI 81.99, complicates all aspects of care #QUINN - 2 L nasal cannula at night Medically Ready for Discharge:Anticipated in 5+ Days * Progress Notes - Ivory Samuels MBBS - 04/29/2025 8:10 AM EDT Subjective SUBJECTIVE Patient seen and examined. Doing okay. Denied any new complaints. No acute events overnight. Am blood glucose 219. TDD 85 units On regular diet. Not on steroids. BG range 212-271 ROS- all1 4 review of systems negative except as mentioned above. Objective Vitals Temp: [36.6 ??C (97.9 ??F)-36.8 ??C (98.2 ??F)] 36.7 ??C (98 ??F) Heart Rate: [77-87] 78 Resp: [14-26] 15 BP: (132-151)/(60-81) 137/76 Physical Exam Constitutional: General: He is not in acute distress. Appearance: He is obese. He is ill-appearing. HENT: Head: Normocephalic and atraumatic. Mouth/Throat: Mouth: Mucous membranes are moist. Eyes: Pupils: Pupils are equal, round, and reactive to light. Cardiovascular: Rate and Rhythm: Normal rate. Pulmonary: Effort: Pulmonary effort is normal. No respiratory distress. Comments: Nasal cannula Abdominal: General: There is no distension. Tenderness: There is no abdominal tenderness. Genitourinary: Comments: Barber in place Musculoskeletal: General: Swelling present. Normal range of motion. Cervical back: Normal range of motion. Skin: General: Skin is warm and dry. Findings: Lesion (right lower extremity) present. Neurological: Mental Status: He is alert and oriented to person, place, and time. Mental status is at baseline. Psychiatric: Mood and Affect: Mood normal. Thought Content: Thought content normal. Judgment: Judgment normal. Labs and medications reviewed. Assessment & Plan Diagnoses #diabetic foot ulcer #UTI #obesity -BMI 81.99 -complicates all aspects of care - contributes to insulin resistance #diabetes mellitus - type 2 -Home medications: see HPI -see inpatient diabetes plan of care below Daily Glucose and Insulin Total Daily Dose -consulted 04/28 AM BG 199 -A1c: Lab Results Component Value Date HGBA1C 10.9 (H) 12/12/2024 -Steroids: none -Diet: regular Plan Primary team requests recommendations and orders -Patient utilizes U500 insulin pen at home. With the U500 pen, a conversion is not needed. Typically patient's required a 70% reduction in home U500 dosing. Taking into account weight-based dosing and home dosing the following insulin regimen was added [basal/bolus]. -After review of glucose trends and insulin delivery over the last 24 hours, titration of intensiveinsulin therapy was made to overall improve glycemic control and improve patient outcomes Current Hospital Regimen: Insulin regimen: Basal: 30 units , NPH, BID Bolus: 20 units lispro to cover meals -Give 1/2 dose if eating 25-50% of meal -HOLD if patient NPO or if patient eats less than 25% of meal -Please document % of meal consumed in intake and output flowsheet. Correction: very resistant dosing 3:50>150 lispro at mealtimes; 1;50>250 lispro bedtime, 3am PRN Diabetes care plan today 04/29/2025 No changes today. Will assess his blood sugars for another day before making any changes. -Continue intensive glucose monitoring due to increased risk for hyper/hypoglycemia secondary to insulin therapy -Will continue to assess blood glucose trends and adjust basal/bolus insulin therapy dose according-fsbg ac/hs when eating, q6h when NPO, on TF/TPN -correction insulin to be given for hyperglycemia, do not hold correction if patient does not eat. -hypoglycemia protocol in place -Please document the percentage of meals consumed in intake and output flowsheet. 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 Please notify us as patient nears discharge for final recommendations Please contact Aileen Leonardo APRN [place] Adult Inpatient Diabetes team via secure chat orpage us at [phone] during 7a-7p, Thursday-Thursday. For after hours please contact the on-call Endocrine Fellow. Thank you for the opportunity to participate in this patient's care. - Reviewed notes by primary team and consulting services to determine appropriate plan of care as in the note. Medically Ready for Discharge: Cosigned by Raza Méndez MD at 04/30/2025 8:33 PM EDT Associated attestation - Raaz Méndez MD - 04/30/2025 8:33 PM EDT I saw and evaluated the patient with the resident/fellow. I discussed the case with the resident/fellow and agree with the findings and plan as documented. * Care Plan - Lyle Jacobs RN - 04/28/2025 3:57 PM EDT Problem: Adult Inpatient Plan of Care Goal: Patient-Specific Goal (Individualized) Outcome: Ongoing, Progressing Flowsheets (Taken 04/28/2025 0900) Patient/Family-Specific Goals (Include Timeframe): Patient will report managed pain/anxiety during shift with utilization of PRN medication. Individualized Care Needs: Wound Care, increased Mobility / Plan Anxieties, Fears or Concerns: Anxiety, Pain, Wound Problem: Skin Injury Risk Increased Goal: Skin Health and Integrity Outcome: Ongoing, Progressing Intervention: Optimize Skin Protection Flowsheets (Taken 04/28/2025 0914) Activity Management: activity adjusted per tolerance education provided Pressure Reduction Techniques: frequent weight shift encouraged weight shift assistance provided Pressure Reduction Devices: pressure-redistributing mattress utilized Problem: Fall Injury Risk Goal: Absence of Fall and Fall-Related Injury Outcome: Ongoing, Progressing Intervention: Promote Injury-Free Environment Flowsheets (Taken 04/28/2025913) Safety Promotion/Fall Prevention: clutter-free environment maintained activity supervised fall prevention program maintained safety round/check completed room organization consistent nonskid shoes/slippers when out of bed mobility aid in reach lighting adjusted Problem: Infection Goal: Absence of Infection Signs and Symptoms Outcome: Ongoing, Progressing Intervention: Prevent or Manage Infection Flowsheets (Taken 04/28/2025913) Infection Management: aseptic technique maintained Isolation Precautions: precautions maintained Problem: Mobility Impairment Goal: Optimal Mobility Outcome: Ongoing, Progressing Intervention: Optimize Mobility Flowsheets (Taken 04/28/2025913) Activity Management: activity adjusted per tolerance education provided * Progress Notes - Mayra Apodaca RN - 04/28/2025 1:41 PM EDT Case Management Adult Initial Progress Note Gonzalo Smalls 49 y.o. male CSN: [id number] Admission: 04/27/2025 9:29 PM Primary Problem: Diabetic foot ulcer Buffing Machine Operator reviewed chart and spoke with patient at bedside to complete this Initial Case Management Assessment. PCP: Malcolm Hayward APRN Emergency Contact: Extended Emergency Contact Information Primary Emergency Contact: Maggie Smalls Mobile Relation: Spouse Preferred language: Yakut Fpga Engineer needed? No Insurance: Primary Visit Coverage Payer Plan Sponsor Code Group Number Group Name THIAGO SOTOMAYOR/[facility] [id number] Satiety Primary Visit Coverage Subscriber Subscriber ID Subscriber Name Subscriber SSN Subscriber Address [id number] GONZALO SMALLS [id number] [facility] [place] [address] Secondary Visit Coverage Payer Plan Sponsor Code Group Number Group Name MEDICARE MEDICARE A & B Secondary Visit Coverage Subscriber Subscriber ID Subscriber Name Subscriber SSN Subscriber Address [id number] GONZALO SMALLS [phone] [address] [id number] Patient information: Primary Caregiver: Self Support System: Immediate family Daily Living Activities: Functional Status: Minimum assistance Living Arrangements: Spouse/Significant other, Children (daughter) Type of Residence: Private residence, Single Level ([address]) [address] [id number] Smoker in the Home?: No Current DME: Equipment Currently Used at Home: cane, straight, walker, rolling Income Information: Income Source: Disabled Income/Expense Information: Expenses exceed income Current Resources Utilized: None Housing Circumstances-Z Codes: Housing Circumstances (select all that apply): Low Income (101-300% Federal Poverty Guidlines) - Z596 Patient Referred to: None Anticipated Discharge Date: TBD Patient's Discharge Goal: Unsure at this time - considering rehab if needed Assistance Available at Discharge: Availability of Care Givers (#Hours): 24 hours Discharge Transport: Follow Up Transport: Transportation Needed to Follow up Appoinments: Family/Friend will Provide Home Health / Home Infusion / Outpatient Dialysis Services: [facility] does PICC line dressing changes Living Will/Advance Directive/Power of Head Insulation Board Saw Operator /Guardian: None Additional Comments: Patient admitted for worsening right diabetic foot ulcer. Vascular surgery consulted. ID consulted.Endocrine consulted. RNCM will continue to monitor for further discharge needs. Mayra Apodaca RN * Progress Notes - Marjorie Myers MD - 04/28/2025 1:24 PM EDT Seen and examined. ID vascular team has consulted Tony to kirstie * Consults - Janis Wheeler MD - 04/28/2025 12:26 PM EDTAssociated Order(s): Inpatient consult to Vascular Surgery Images from the original note were not included. [facility] Department of Surgery Division of Vascular Surgery History & Physical Note Reason for Consult: Right foot diabetic wound with findings consistent with osteomyelitis Requesting Service: Hospital Medicine Consult Date and Time: 04/28/2025 @ 0923 Inpatient consult to Vascular Surgery Consult performed by: Janis Wheeler MD Consult ordered by: Sy De La Fuente APRN, DNP Subjective History of Present Illness: Chief Complaint: right foot wound Gonzalo Smalls is a 49 y.o. male with PMHx significant for class III obesity, CHF (EF 55% in 2021),paroxsymal atrial fibrillation (on Xarelto), HTN, HLD, T2DM, COPD, QUINN on 2LNC at night, recurrent UTIs who presented to the [facility] on 04/27/2025 with right foot wound. He reports that he has had this wound for approximately 3 months but it worsened over the last 2 weeks as it began enlarging and draining purulent fluid. He denies fever, diaphoresis, rigors. He has had previous wounds on his foot that healed successfully. He currently dips tobacco using approximately 1 can daily for the last 30 years. Denies alcohol useor drug use. Surgical history significant for gastric sleeve and cholecystectomy. Review of Systems: Relevant review of systems was obtained as able and is negative unless stated above in HPI. History Obtained From: Patient/Family Past Medical History: Past Medical History[1] Allergies [...] Resource Strain: Not on file Food Insecurity: No Food Insecurity (12/16/2024) Hunger Vital Sign Worried About Running Out of Food in the Last Year: Never true Ran Out of Food in the Last Year: Never true Transportation Needs: No Transportation Needs (12/16/2024) PRAPARE - Transportation Lack of Transportation (Medical): No Lack of Transportation (Non-Medical): No Physical Activity: Not on file Stress: Not on file Social Connections: Unknown (04/24/2023) Received from [facility] Family and Community Support Help with Day-to-Day Activities: Not on file Lonely or Isolated: Not on file Intimate Partner Violence: Not At Risk (12/16/2024) Humiliation, Afraid, Rape, and Kick questionnaire Fear of Current or Ex-Partner: No Emotionally Abused: No Physically Abused: No Sexually Abused: No Housing Stability: Low Risk (12/16/2024) Housing Stability Vital Sign Unable to Pay for Housing in the Last Year: No Number of Times Moved in the Last Year: 0 Homeless in the Last Year: No Immunizations: Immunization History Administered Date(s) Administered Moderna COVID-19 Vaccine (Wrist Liner) 12+ years 01/25/2021, 02/22/2021 Pneumococcal Conjugate PCV 13 12/24/2016 Pneumococcal Polysaccharide PPV23 04/26/2020 I have updated and confirmed the past medical, surgical, family and social history. Home Medications: Prior to Admission medications Medication Sig Start Date End Date Taking? Authorizing Provider albuterol 108 (90 Base) MCG/ACT inhaler Inhale 2 puffs every 4 to 6 hours as needed for wheezing orshortness of breath. Yes Provider, Historical atorvastatin (Lipitor) 40 MG tablet Take 1 tablet by mouth nightly. 05/10/18 Yes Provider, Historical bisoprolol (Zebeta) 5 MG tablet Take 1 tablet by mouth 2 times a day. 01/17/21 Yes Provider, Historical bumetanide (Bumex) 2 MG tablet Take 2 tablets by mouth 3 times a day. Yes Provider, Historical cariprazine (Vraylar) 3 MG capsule Take 1 capsule by mouth daily. Yes Provider, Historical dilTIAZem CD (Cardizem CD) 120 MG 24 hr capsule Take 1 capsule by mouth daily. Yes Provider, Historical gabapentin (Neurontin) 600 MG tablet Take 1 tablet by mouth 3 times a day. 09/05/21 Yes Provider, Historical HYDROcodone-acetaminophen ([place]) 10-325 MG tablet Take 1 tablet by mouth every 6 hours as needed. Yes Provider, Historical insulin regular (HumuLIN R,NovoLIN R) 100 UNIT/ML injection vial Inject 200 Units under the skin 2 times a day with meals. Yes Provider, Historical LORazepam (Ativan) 1 MG tablet Take 1 tablet by mouth daily as needed. 12/17/16 Yes Provider, Historical metFORMIN (Glucophage) 1000 MG tablet TAKE 1 TAB BY MOUTH 2 (TWO) TIMES A DAY WITH MEALS. MUST COMPLETE LABS FOR FURTHER RESULTS. 10/17/24 Yes Divine Archer APRN mupirocin (Bactroban) 2 % ointment Apply 1 Application topically 2 times a day. Yes Provider, Historical omeprazole (PriLOSEC) [address] capsule Take 1 capsule by mouth 2 times a day. 11/03/16 Yes Provider,Historical Ozempic, 0.25 or 0.5 MG/DOSE, 2 MG/3ML solution pen-injector Inject 0.25 mg under the skin 1 time per week. 01/26/25 Yes Provider, Historical rivaroxaban (Xarelto) 20 MG tablet Take 1 tablet by mouth daily. 12/16/19 Yes Provider, Historical spironolactone (Aldactone) 50 MG tablet Take 2 tablets by mouth daily. 09/09/20 Yes Provider, Historical tamsulosin (Flomax) 0.4 MG 24 hr capsule Take 1 capsule by mouth daily. 02/20/25 Yes Provider, Historical traZODone (Desyrel) 100 MG tablet Take 1 tablet by mouth nightly. 02/18/19 Yes Provider, Historical venlafaxine XR (Effoxor-XR) 150 MG 24 hr capsule Take 1 capsule by mouth daily. 05/10/18 Yes Provider, Historical Insulin Pen Needle (Pen [place]) 31G X 5 MM misc USE TO INJECT INSULIN 3 TIMES PER DAY 02/27/25 Divine Archer APRN naloxone (Narcan) 4 mg/0.1 mL nasal spray 1. Give 1 spray in nostril for no/slow breathing or cannot wake after opioid use 2. Call 911 3. Repeat in other nostril if symptoms continue 12/17/24 Rachael Berrios APRN Ostomy Supplies (stomahesive) powder powder Apply 1 Application topically as needed (as needed). May apply powder over washed areas, and on top of protectant cream. May be mixed together for application. 01/10/25 Abigail King APRN acetaminophen (Tylenol) 325 MG tablet Take 2 tablets by mouth every 6 hours as needed for pain. Under [place] law, monthly prescriptions (30 days) can be refilled at 25 days and three-month prescriptions (90 days) at 80 days. Please contact the insurance company with questions if refills are denied. 12/17/24 04/28/25 Rachael Berrios APRN insulin NPH-insulin regular (NovoLIN 70/30 FlexPen) (70-30) 100 UNIT/ML injection pen Inject 90 Units under the skin 3 times a day before meals. FURTHER REFILLS WILL BE PROVIDED UPON ATTENDANCE OF NEXT OFFICE VISIT 03/29/25 02/22/25 04/28/25 Divine Archer APRN ondansetron ODT (Zofran-ODT) 4 MG disintegrating tablet Dissolve 1 tablet on the tongue every 6 hours as needed for nausea or vomiting. 12/17/24 04/28/25 Rachael Berrios APRN oxyCODONE (Roxicodone) 5 MG immediate release tablet Take 1 tablet by mouth every 6 hours as neededfor severe pain. Patient not taking: Reported on 01/10/2025 12/17/24 04/28/25 Rachael Berrios APRN polyethylene glycol (Miralax) 17 g packet Take 17 g by mouth daily. 12/17/24 04/28/25 Rachael Berrios APRN torsemide (Demadex) 20 MG tablet Take 1 tablet by mouth daily. 04/28/25 Provider, Historical Anti-Thrombotic Medications: Is this patient taking warfarin, new oral anti-coagulant, or anti-platelet medication? Yes If Yes, What Medication: Rivaroxaban (Xarelto) Current Hospital Medications: Current Medications[5] Objective Objective: Visit Vitals BP 136/77 (BP Location: Right arm, Patient Position: Lying) Pulse 80 Temp 36.6 ??C (97.9 ??F) (Oral) Ht 1.829 m (6') Wt (!) 274 kg (604 lb 8 oz) SpO2 96% BMI 81.99 kg/m?? @ Physical Exam: Physical Exam Constitutional: General: He is not in acute distress. Appearance: He is obese. HENT: Head: Normocephalic. Cardiovascular: Rate and Rhythm: Normal rate. Pulses: Dorsalis pedis pulses are 1+ on the right side and 1+ on the left side. Posterior tibial pulses are detected w/ Doppler on the right side and detected w/ Doppler on the left side. Musculoskeletal: Right lower leg: Edema present. Left lower leg: Edema present. Feet: Comments: Wound overlying the lateral aspect of right foot with exposed bone and purulence Neurological: Mental Status: He is alert. Laboratory: CBC WBC 12.00 (H) Hb 10.4 (L) Plt 282 Hct 33.3 (L) ANC 9.73 (H) INR 1.4 (H), PTT 32, Anti-Xa ?? MCV 74 (L) BMP Na 135 (L) Cl 90 (L) BUN 8 Glu 135 (H) K 3.3 (L) Co2 29 Cr 0.84 Ca 9.0 iCa 4.2 (L) Mg 1.2 (L), Phos ?? Lactate ?? LFT AST ?? AlkPhos ?? T Prot ?? ALK ?? Bili ?? Alb ?? D.Bili ?? Imaging: CT Foot Right w IV Contrast Result Date: 04/28/2025 Soft tissue defect along the dorsal lateral foot and open, comminuted fracture and irregularity of the fifth metatarsal head. These findings are compatible with osteomyelitis. No discrete abscess. Exam limited by positioning. CRITICAL RESULT: No. COMMUNICATION: Per this written report. Preliminary report signed by Haritha Govea DO on 04/28/2025 5:19 AM By electronically signing this report, I, the attending physician, attest that I have personally reviewed the images/data for the above examination(s) and agree with the final edited report. Drafted by Haritha Govea DO on 04/28/2025 5:00 AM Final report signed by Roderick Alcala MD on 04/28/2025 5:27 AM XR Foot Right 3+ Views Result Date: 04/27/2025 Chronic ulcer in the lateral forefoot. There is adjacent osseous destruction and erosions at the fifth MTP suggestive of osteomyelitis. CRITICAL RESULT: No. COMMUNICATION: Per this written report. Drafted by Kim Bai MD on 04/27/2025 11:38 PM Final report signed by Kim Bai MD on 04/27/2025 11:40 PM Radiographic Interpretation: I have reviewed the imaging above and agree with the radiologist interpretation. Assessment/Plan Assessment & Plan: Gonzalo Smalls is a 49 y.o. male with PMHx notable for class III obesity, CHF (EF 55% in 2021), paroxsymal atrial fibrillation (on Xarelto), HTN, HLD, T2DM, COPD, QUINN on 2LNC at night, recurrent UTIswho presented to [facility] with nonhealing right foot wound. Radiographs significant for cortical degeneration of fifth metatarsal and exam with evidence of exposed bone; high degree of suspicion for osteomyelitis. ABIs demonstrate adequate toe pressure for healing. Discussed potential amputation versusfoot salvage with patient. Due to his comorbidities, an amputation would likely result in him neverbeing able to walk again. Will continue to follow patient and discuss options going forward. Dr. Ibarra to discuss case with podiatry as well for potential salvage. Definitive plan to be determined pending further discussions. Dispo: Vascular Surgery will continue to follow this patient CODE STATUS: not specified This Consult, Assessment, and Plan has been discussed with Dr. Ibarra, Attending Physician Janis Wheeler MD General Surgery, PGY2 Pager: [1] Past Medical History: Diagnosis Date Acute kidney injury 05/19/2024 Alcohol abuse, in remission Alcohol abuse, in remission Anxiety disorder, unspecified Anxiety Arthritis Atrial fibrillation (CMS/HCC) CAP (community acquired pneumonia) 05/19/2024 Cellulitis 05/19/2024 CHF (congestive heart failure) COPD (chronic obstructive pulmonary disease) Depression GERD (gastroesophageal reflux disease) Hyperlipidemia Hypertension Left lower lobe pneumonia 05/19/2024 Sleep apnea Sleep apnea, obstructive Type 2 diabetes mellitus [2] Allergies Allergen Reactions Vancomycin Other - please document in the comment field Red man syndrome [3] Past Surgical History: Procedure Laterality Date ARTERIAL STENT PLACEMENT CHOLECYSTECTOMY GASTRIC BYPASS [4] Family History Problem Relation Name Age of Onset Alcohol abuse Mother Alcohol abuse Paternal Grandmother Alcohol abuse Mother's Sister Alcohol abuse Mother's Brother [5] Current Facility-Administered Medications Medication Dose Route Frequency Provider Last Rate Last Admin acetaminophen (Tylenol) tablet 1,000 mg 1,000 mg Oral q6h PRN Sy De La Fuente APRN, DNP albuterol 108 (90 Base) MCG/ACT inhaler 2 puff 2 puff Inhalation q4h PRN Sy De La Fuente APRN, DNP atorvastatin (Lipitor) tablet 40 mg 40 mg Oral Nightly Sy De La Fuente APRN, DNP bisoprolol (Zebeta) tablet 5 mg 5 mg Oral BID Sy De La Fuente APRN, DNP 5 mg at 04/28/25 0849 bumetanide (Bumex) tablet 4 mg 4 mg Oral TID Sy De La Fuente APRN, DNP 4 mg at 04/28/25 0848 cariprazine (Vraylar) capsule 3 mg 3 mg Oral Daily Sy De La Fuente APRN, DNP 3 mg at 04/28/25 0928 glucose (Glutose) 40 % oral gel 15-30 grams of glucose 15-30 grams of glucose Sublingual q15 min PRN Sy De La Fuente APRN, DNP Or dextrose 10 % (D10W) bolus 125 mL 125 mL Intravenous q15 min PRN Sy De La Fuente APRN, DNP Or dextrose 10 % (D10W) bolus 250 mL 250 mL Intravenous q15 min PRN Sy De La Fuente APRN, DNP Or glucagon (human recombinant) injection 1 mg 1 mg Intramuscular q15 min PRN Sy De La Fuente APRN, DNP dilTIAZem CD (Cardizem CD) 24 hr capsule 120 mg 120 mg Oral Daily Sy De La Fuente APRN, DNP 120 mg at 04/28/25 0848 gabapentin (Neurontin) capsule 600 mg 600 mg Oral TID Sy De La Fuente APRN, DNP 600 mg at 04/28/25 0848 insulin lispro (Admelog) 100 units/mL injection - Correction - Very Resistant Dose 0-15 Units Subcutaneous TID with meals Aileen Leonardo APRN 9 Units at 04/28/25 1155 insulin lispro (Admelog) injection - Correction - Nighttime Dose 0-3 Units Subcutaneous Twice at night Sy De La Fuente APRN, DNP Insulin Lispro (Admelog, HumaLOG) 100 UNIT/ML injection 20 Units 20 Units Subcutaneous TID with meals Aileen Leonardo, FITTING ROOM OPERATOR 20 Units at 04/28/25 1155 insulin NPH (Isophane) (HumuLIN N,NovoLIN N) injection 30 Units 30 Units Subcutaneous BID Aileen Leonardo APRN ipratropium-albuterol (Duo-Neb) 0.5-2.5 mg/3 mL nebulizer solution 3 mL 3 mL Nebulization q4h PRN Sy De La Fuente APRN, DNP lidocaine (Uro-Jet) 2 % gel 1 Application 1 Application Urethral PRN Sy De La Fuente APRN, DNP LORazepam (Ativan) tablet 1 mg 1 mg Oral Daily PRN Sy De La Fuente APRN, DNP 1 mg at 04/28/25 0849 meropenem (Merrem) 2 g in sodium chloride 0.9 % 100 mL IVPB 2 g Intravenous q8h Sy De La Fuente APRN, DNP 50 mL/hr at 04/28/25 1043 2 g at 04/28/25 1043 ondansetron ODT (Zofran-ODT) disintegrating tablet 4 mg 4 mg Oral q6h PRN Sy De La Fuente APRN, DNP oxyCODONE (Roxicodone) immediate release tablet 5 mg 5 mg Oral q6h PRN Sy De La Fuente APRN, DNP 5 mg at 04/28/25 0849 pantoprazole (Protonix) EC tablet 40 mg 40 mg Oral Daily before breakfast Sy De La Fuente APRN, DNP40 mg at 04/28/25 0848 polyethylene glycol (Miralax) packet 17 g 17 g Oral Daily Sy De La Fuente APRN, DNP [Held by provider] rivaroxaban (Xarelto) tablet 20 mg 20 mg Oral Daily Sy De La Fuente APRN, DNP sodium chloride 0.9 % flush 10 mL 10 mL Intravenous q12h Sy De La Fuente APRN, DNP 10 mL at 04/28/25 0850 And sodium chloride 0.9 % flush 10 mL 10 mL Intravenous PRN Sy De La Fuente APRN, DNP spironolactone (Aldactone) tablet 100 mg 100 mg Oral Daily Sy De La Fuente APRN, DNP 100 mg at 04/28/25 0849 tamsulosin (Flomax) 24 hr capsule 0.4 mg 0.4 mg Oral Daily Sy De La Fuente APRN, DNP 0.4 mg at 04/28/25 0848 traZODone (Desyrel) tablet 100 mg 100 mg Oral Nightly Sy De La FuenteADALGISA DNP venlafaxine XR (Effexor-XR) 24 hr capsule 150 mg 150 mg Oral Daily Sy De La Fuente APRN DENISE 150 mgat 04/28/25 0848 Current Outpatient Medications Medication Sig Dispense Refill albuterol 108 (90 Base) MCG/ACT inhaler Inhale 2 puffs every 4 to 6 hours as needed for wheezing orshortness of breath. atorvastatin (Lipitor) 40 MG tablet Take 1 tablet by mouth nightly. bisoprolol (Zebeta) 5 MG tablet Take 1 tablet by mouth 2 times a day. bumetanide (Bumex) 2 MG tablet Take 2 tablets by mouth 3 times a day. cariprazine (Vraylar) 3 MG capsule Take 1 capsule by mouth daily. dilTIAZem CD (Cardizem CD) 120 MG 24 hr capsule Take 1 capsule by mouth daily. gabapentin (Neurontin) 600 MG tablet Take 1 tablet by mouth 3 times a day. HYDROcodone-acetaminophen ([place]) 10-325 MG tablet Take 1 tablet by mouth every 6 hours as needed. insulin regular (HumuLIN R,NovoLIN R) 100 UNIT/ML injection vial Inject 200 Units under the skin 2 times a day with meals. LORazepam (Ativan) 1 MG tablet Take 1 tablet by mouth daily as needed. metFORMIN (Glucophage) 1000 MG tablet TAKE 1 TAB BY MOUTH 2 (TWO) TIMES A DAY WITH MEALS. MUST COMPLETE LABS FOR FURTHER RESULTS. 180 tablet 1 mupirocin (Bactroban) 2 % ointment Apply 1 Application topically 2 times a day. omeprazole (PriLOSEC) [address] capsule Take 1 capsule by mouth 2 times a day. Ozempic, 0.25 or 0.5 MG/DOSE, 2 MG/3ML solution pen-injector Inject 0.25 mg under the skin 1 time per week. rivaroxaban (Xarelto) 20 MG tablet Take 1 tablet by mouth daily. spironolactone (Aldactone) 50 MG tablet Take 2 tablets by mouth daily. tamsulosin (Flomax) 0.4 MG 24 hr capsule Take 1 capsule by mouth daily. traZODone (Desyrel) 100 MG tablet Take 1 tablet by mouth nightly. venlafaxine XR (Effoxor-XR) 150 MG 24 hr capsule Take 1 capsule by mouth daily. Insulin Pen Needle (Pen [place]) 31G X 5 MM misc USE TO INJECT INSULIN 3 TIMES PER DAY 100 each 1 naloxone (Narcan) 4 mg/0.1 mL nasal spray 1. Give 1 spray in nostril for no/slow breathing or cannot wake after opioid use 2. Call 911 3. Repeat in other nostril if symptoms continue 1 each 0 Ostomy Supplies (stomahesive) powder powder Apply 1 Application topically as needed (as needed). May apply powder over washed areas, and on top of protectant cream. May be mixed together for application. 28.3 g 3 Cosigned by Emanuel Ibarra MD at 05/01/2025 1:27 PM EDT Associated attestation - Emanuel Ibarra MD - 05/01/2025 1:27 PM EDT I saw and evaluated the patient with the resident/fellow. I discussed the case with the resident/fellow and agree with the findings and plan as documented. * Consults - Janelle Phan PA - 04/28/2025 9:44 AM EDTAssociated Order(s): IP CONSULT TO INFECTIOUS DISEASES BONE & JOINT INFECTIOUS DISEASE INPATIENT CONSULT Date of Consult: 04/28/2025 Date of Admission: 04/27/2025 REQUESTING PROVIDER: Dr. Myers REASON FOR CONSULT: Infectious diabetic foot ulcer clinical pathway patient HPI OBTAINED FROM: [X] Patient [X] Family [ ] Friend [ ] Fpga Engineer [X] Medical records HISTORY OF PRESENT ILLNESS: Gonzalo Smalls is a 49 y.o. male with a PMH of T2DM c/b peripheral neuropathy, HTN, HLD, Afib, on Xarelto, morbid obesity, and QUINN who presented to on for evaluation of a right diabetic foot ulcer. Initial labs significant for leukocytosis of 12,000 and CRP 82.6. X-ray imaging of the right foot showed a lateral forefoot chronic ulcer with 5th MTP bony erosion and destruction. CT of the right foot with IV contrast demonstrated a ulcer to the dorsal and lateral aspect of the right foot with an open and comminuted 5th metatarsal head fracture consistent with osteomyelitis. Given concern for bony infection, ID bone and joint was consulted on 04/28/25 for evaluation. Patient was seen and evaluated with family present. He states that approximately 3 months ago he developed a small wound to the lateral aspect of his right foot which has continued to progressively worsen and, particularly over the last 2-3 weeks. The area has gotten larger and they started to notice discolorations that were black. They noted that a few days ago a area of skin fell off and they were able to see bone prompting them to seek evaluation. He has had some increase in erythema withoutsignificant warmth and has had worsening edema of the lower extremity. He denies any increased painas he has peripheral neuropathy. Patient typically ambulates with a cane but recently also purchased a walker to assist with ambulation. He denies any known fevers, chills, sweats, or night sweats. He denies other signs of systemic infection including shortness of breath, cough, abdominal pain, nausea, vomiting, or changes in bowel habits. He does have a chronic indwelling Barber catheter due to urinary retention, denies known history of prostate problems. Per outside records, was recently diagnosed with balanitis. He states that he has recurrent urinary tract infections and was treated in [facility] at [facility] a few days ago where a PICC line was placed and he was started on home IV antibiotics with ertapenem which he has had 2 doses of for an ESBL E coli urinary tract infection. He has had prior diabetic foot ulcers on the left foot which have healed without complication but denies any history of diabetic foot ulcers on the right side. His Barber catheter was changed when he was in the ED 2-3 days ago at [facility]. I contacted OSH who report blood cultures obtained 04/25/25 are currently no growth to date. Patient does also have a urine culture fromthat date which is pending, but reported to have 2 organisms growing that are awaiting identification and susceptibilities. ROS: Complete 14 point review of systems is negative except for positives documented in HPI/subjective PAST MEDICAL HISTORY: Past Medical History[1] PAST SURGICAL HISTORY: Surgical History[2] ALLERGIES: Allergies[3] HOME MEDICATIONS: Prior to Admission medications Medication Sig Start Date End Date Taking? Authorizing Provider albuterol 108 (90 Base) MCG/ACT inhaler Inhale 2 puffs every 4 to 6 hours as needed for wheezing orshortness of breath. Yes Provider, Historical atorvastatin (Lipitor) 40 MG tablet Take 1 tablet by mouth nightly. 05/10/18 Yes Provider, Historical bisoprolol (Zebeta) 5 MG tablet Take 1 tablet by mouth 2 times a day. 01/17/21 Yes Provider, Historical bumetanide (Bumex) 2 MG tablet Take 2 tablets by mouth 3 times a day. Yes Provider, Historical cariprazine (Vraylar) 3 MG capsule Take 1 capsule by mouth daily. Yes Provider, Historical dilTIAZem CD (Cardizem CD) 120 MG 24 hr capsule Take 1 capsule by mouth daily. Yes Provider, Historical gabapentin (Neurontin) 600 MG tablet Take 1 tablet by mouth 3 times a day. 09/05/21 Yes Provider, Historical HYDROcodone-acetaminophen ([place]) 10-325 MG tablet Take 1 tablet by mouth every 6 hours as needed. Yes Provider, Historical insulin regular (HumuLIN R,NovoLIN R) 100 UNIT/ML injection vial Inject 225 Units under the skin 2 times a day with meals. Yes Provider, Historical LORazepam (Ativan) 1 MG tablet Take 1 tablet by mouth daily as needed. 12/17/16 Yes Provider, Historical metFORMIN (Glucophage) 1000 MG tablet TAKE 1 TAB BY MOUTH 2 (TWO) TIMES A DAY WITH MEALS. MUST COMPLETE LABS FOR FURTHER RESULTS. 10/17/24 Yes Divine Archer APRN mupirocin (Bactroban) 2 % ointment Apply 1 Application topically 2 times a day. Yes Provider, Historical omeprazole (PriLOSEC) [address] capsule Take 1 capsule by mouth 2 times a day. 11/03/16 Yes Provider,Historical ondansetron ODT (Zofran-ODT) 4 MG disintegrating tablet Dissolve 1 tablet on the tongue every 6 hours as needed for nausea or vomiting. 12/17/24 Yes Rachael Berrios APRN Ozempic, 0.25 or 0.5 MG/DOSE, 2 MG/3ML solution pen-injector Inject 0.25 mg under the skin 1 time per week. 7/17/25 Yes Provider, Historical rivaroxaban (Xarelto) 20 MG tablet Take 1 tablet by mouth daily. 12/16/19 Yes Provider, Historical spironolactone (Aldactone) 50 MG tablet Take 2 tablets by mouth daily. 09/09/20 Yes Provider, Historical tamsulosin (Flomax) 0.4 MG 24 hr capsule Take 1 capsule by mouth daily. 02/20/25 Yes Provider, Historical traZODone (Desyrel) 100 MG tablet Take 1 tablet by mouth nightly. 02/18/19 Yes Provider, Historical venlafaxine XR (Effoxor-XR) 150 MG 24 hr capsule Take 1 capsule by mouth daily. 05/10/18 Yes Provider, Historical Insulin Pen Needle (Pen [place]) 31G X 5 MM misc USE TO INJECT INSULIN 3 TIMES PER DAY 02/27/25 Divine Archer APRN naloxone (Narcan) 4 mg/0.1 mL nasal spray 1. Give 1 spray in nostril for no/slow breathing or cannot wake after opioid use 2. Call 911 3. Repeat in other nostril if symptoms continue 12/17/24 Rachael Berrios APRN Ostomy Supplies (stomahesive) powder powder Apply 1 Application topically as needed (as needed). May apply powder over washed areas, and on top of protectant cream. May be mixed together for application. 01/10/25 Abigail King APRN polyethylene glycol (Miralax) 17 g packet Take 17 g by mouth daily. 12/17/24 Rachael Berrios APRN torsemide (Demadex) 20 MG tablet Take 1 tablet by mouth daily. Provider, Historical acetaminophen (Tylenol) 325 MG tablet Take 2 tablets by mouth every 6 hours as needed for pain. Under [place] law, monthly prescriptions (30 days) can be refilled at 25 days and three-month prescriptions (90 days) at 80 days. Please contact the insurance company with questions if refills are denied. 12/17/24 04/28/25 Rachael Berrios APRN insulin NPH-insulin regular (NovoLIN 70/30 FlexPen) (70-30) 100 UNIT/ML injection pen Inject 90 Units under the skin 3 times a day before meals. FURTHER REFILLS WILL BE PROVIDED UPON ATTENDANCE OF NEXT OFFICE VISIT 03/29/25 02/22/25 04/28/25 Divine Archer APRN oxyCODONE (Roxicodone) 5 MG immediate release tablet Take 1 tablet by mouth every 6 hours as neededfor severe pain. Patient not taking: Reported on 01/10/2025 12/17/24 04/28/25 Rachael Berrios APRN CURRENT MEDICATIONS: Current Medications[4] SOCIAL HISTORY: Social History[5] FAMILY HISTORY: Family History[6] PHYSICAL EXAMINATION: GEN: Chronically ill-appearing, obese male, resting comfortably in bed SKIN: Wound images reviewed of Right lateral foot. Dressing in place to right lateral foot with serosanguinous drainage noted. Skin is otherwise warm, well- perfused, no rashes or lesions on exposed skin EYES: Sclera anicteric, EOMI HENT: NCAT, neck supple, full ROM, mmm CHEST: Atraumatic, symmetric chest rise HEART: Regular rate and rhythm, normal S1/S2, no m/r/g LUNGS: Good air movement, lungs clear to auscultation bilaterally, no respiratory distress on room air GI: Abdomen soft, non-tender, non-distended, normoactive bowel sounds in all quadrants VASC: No cyanosis, no edema, peripheral pulses 2+ MSK: Right foot as above, right 5th toe malaligned, otherwise no obvious deformity NEURO: A&OX3, moves all extremities equally, no focal neurologic deficits PSYCH: Appropriate mood and affect VITAL SIGNS: Patient Vitals for the past 24 hrs: BP Temp Temp src Pulse Resp SpO2 Height Weight 04/28/25 0719 (!) 147/73 37.3 ??C (99.1 ??F) Oral 91 17 94 % -- -- 04/28/25 0600 -- -- -- -- 18 -- -- -- 04/28/25 0315 120/66 -- -- 74 18 100 % -- -- 04/28/25 0100 -- -- -- -- 18 -- -- -- 04/28/25 0000 -- -- -- -- 17 -- -- -- 04/27/25 2300 137/71 -- -- 93 17 92 % -- -- 102245 -- -- -- -- -- -- 1.829 m (6') (!) 274 kg (604 lb 8 oz) 04/27/25 191 130/74 37.1 ??C (98.8 ??F) Oral 107 24 99 % -- -- LABS: Labs in last 18 hours CBC WBC 12.00 (H) Hb 10.4 (L) Plt 282 Hct 33.3 (L) ANC 9.73 (H) INR 1.4 (H), PTT 32, Anti-Xa ?? BMP Na 135 (L) Cl 90 (L) BUN 8 Glu 135 (H) K 3.3 (L) Co2 29 Cr 0.84 Ca 9.0 iCa 4.2 (L) Mg 1.2 (L), Phos ?? Lactate ?? LFT AST ?? AlkPhos ?? T Prot ?? ALK ?? Bili ?? Alb ?? D.Bili ?? Lab Results Component Value Date CRP 82.6 (H) 04/27/2025 CRP 9.2 02/18/2019 Lab Results Component Value Date CK 71 04/27/2025 CK 107 02/18/2019 Patient records reviewed and pertinent findings outlined below. IMAGING/STUDIES: CT Foot Right w IV Contrast Result Date: 04/28/2025 Impression: Soft tissue defect along the dorsal lateral foot and open, comminuted fracture and irregularity of the fifth metatarsal head. These findings are compatible with osteomyelitis. No discreteabscess. Exam limited by positioning. XR Foot Right 3+ Views Result Date: 04/27/2025 Impression: Chronic ulcer in the lateral forefoot. There is adjacent osseous destruction and erosions at the fifth MTP suggestive of osteomyelitis. ANTIMICROBIAL REVIEW: IV Daptomycin 04/28/25 - Present IV Meropenem 04/28/25 - Present MICROBIOLOGY: 04/27/25 Blood culture Pending ADULT ID SCREENING: - Hepatitis C - Ab Negative (04/27/25) - HIV - Ab Non-reactive (04/27/25) ASSESSMENT: Gonzalo Smalls is a 49 y.o. male with a PMH of T2DM c/b peripheral neuropathy, HTN, HLD, Afib, on Xarelto, morbid obesity, and QUINN who presented to on for evaluation of a right diabetic foot ulcer. Initial labs significant for leukocytosis of 12,000 and CRP 82.6. X-ray imaging of the right foot showed a lateral forefoot chronic ulcer with 5th MTP bony erosion and destruction. CT of the right foot with IV contrast demonstrated a ulcer to the dorsal and lateral aspect of the right foot with an open and comminuted 5th metatarsal head fracture consistent with osteomyelitis. Given concern for bony infection, ID bone and joint was consulted on 04/28/25 for evaluation. 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 coli - Type 2 Diabetes Mellitus c/b Peripheral Neuropathy - Hemoglobin A1c 10.9% - Complicates wound healing and treatment of infection - Patient would benefit from tight glucose control - Obesity - Body mass index is 81.99 kg/m??. - Complicates all aspects of care - Afib on Xarelto, HTN, HLD, QUINN RECOMMENDATIONS: - Start renal dose equivalent Daptomycin 1500 mg IV q24h (10 mg/kg by adjusted body weight) - Continue renal dose equivalent Meropenem 2 g IV q8h - Trend CBC w/ diff, CMP, CRP, and CK at least twice weekly while inpatient to monitor for toxicityand ensure appropriate response to treatment. - Agree with vascular surgery consult - Total duration of antibiotics pending additional workup/intervention - Will follow-up blood and urine cultures from [facility] for further ID/susceptibilities, obtained 04/25 - Please obtain adult ID screening labs: Hep A IgG, Hep B sAb, Hep B sAg, and Hep B total core Ab - Plan of care and recommendations discussed with patient's primary provider Thank you for allowing us to participate in this patient's care. ID will follow. Janelle Phan PA-C Division of Infectious Diseases Available by [employer] History, assessment, and plan discussed with ID attending, Dr. Bailey Cueva The following complex inpatient infectious disease services were performed today: Complex antimicrobial therapy counseling and treatment [1] Past Medical History: Diagnosis Date Acute kidney injury 05/19/2024 Alcohol abuse, in remission Alcohol abuse, in remission Anxiety disorder, unspecified Anxiety Arthritis Atrial fibrillation (CMS/HCC) CAP (community acquired pneumonia) 05/19/2024 Cellulitis 05/19/2024 CHF (congestive heart failure) COPD (chronic obstructive pulmonary disease) Depression GERD (gastroesophageal reflux disease) Hyperlipidemia Hypertension Left lower lobe pneumonia 05/19/2024 Sleep apnea Sleep apnea, obstructive Type 2 diabetes mellitus [2] Past Surgical History: Procedure Laterality Date ARTERIAL STENT PLACEMENT CHOLECYSTECTOMY GASTRIC BYPASS [3] Allergies Allergen Reactions Vancomycin Other - please document in the comment field Red man syndrome [4] Current Facility-Administered Medications Medication Dose Route Frequency Provider Last Rate Last Admin acetaminophen (Tylenol) tablet 1,000 mg 1,000 mg Oral q6h PRN Sy De La Fuente APRN, DNP albuterol 108 (90 Base) MCG/ACT inhaler 2 puff 2 puff Inhalation q4h PRN Sy De La Fuente APRN, DNP atorvastatin (Lipitor) tablet 40 mg 40 mg Oral Nightly Sy De La Fuente APRN, DNP bisoprolol (Zebeta) tablet 5 mg 5 mg Oral BID Sy De La Fuente APRN, DNP 5 mg at 04/28/25 0849 bumetanide (Bumex) tablet 4 mg 4 mg Oral TID Sy De La Fuente APRN, DNP 4 mg at 04/28/25 0848 cariprazine (Vraylar) capsule 3 mg 3 mg Oral Daily Sy De La Fuente APRN, DNP 3 mg at 04/28/25 0928 glucose (Glutose) 40 % oral gel 15-30 grams of glucose 15-30 grams of glucose Sublingual q15 min PRN Sy De La Fuente APRN, DNP Or dextrose 10 % (D10W) bolus 125 mL 125 mL Intravenous q15 min PRN Sy De La Fuente APRN, DNP Or dextrose 10 % (D10W) bolus 250 mL 250 mL Intravenous q15 min PRN Sy De La Fuente APRN, DNP Or glucagon (human recombinant) injection 1 mg 1 mg Intramuscular q15 min PRN Sy De La Fuente APRN, DNP dilTIAZem CD (Cardizem CD) 24 hr capsule 120 mg 120 mg Oral Daily Sy De La Fuente APRN, DNP 120 mg at 04/28/25 0848 gabapentin (Neurontin) capsule 600 mg 600 mg Oral TID Sy De La Fuente APRN, DNP 600 mg at 04/28/25 0848 insulin lispro (Admelog) 100 units/mL injection - Correction - Resistant Dose 0- 10 Units Subcutaneous TID with meals Sy De La Fuente APRN, DNP insulin lispro (Admelog) injection - Correction - Nighttime Dose 0-3 Units Subcutaneous Twice at night Sy De La Fuente APRN, DNP ipratropium-albuterol (Duo-Neb) 0.5-2.5 mg/3 mL nebulizer solution 3 mL 3 mL Nebulization q4h PRN Sy De La Fuente APRN, DNP lidocaine (Uro-Jet) 2 % gel 1 Application 1 Application Urethral PRN Sy De La Fuente APRN, DNP LORazepam (Ativan) tablet 1 mg 1 mg Oral Daily PRN Sy De La Fuente APRN, DNP 1 mg at 04/28/25 0849 meropenem (Merrem) 2 g in sodium chloride 0.9 % 100 mL IVPB 2 g Intravenous q8h Sy De La Fuente APRN, DNP ondansetron ODT (Zofran-ODT) disintegrating tablet 4 mg 4 mg Oral q6h PRN Sy De La Fuente APRN, DNP oxyCODONE (Roxicodone) immediate release tablet 5 mg 5 mg Oral q6h PRN Sy De La Fuente APRN, DNP 5 mg at 04/28/25 0849 pantoprazole (Protonix) EC tablet 40 mg 40 mg Oral Daily before breakfast Sy De La Fuente APRN, DNP40 mg at 04/28/25 0848 polyethylene glycol (Miralax) packet 17 g 17 g Oral Daily Sy De La Fuente APRN, DNP [Held by provider] rivaroxaban (Xarelto) tablet 20 mg 20 mg Oral Daily Sy De La Fuente APRN, DNP sodium chloride 0.9 % flush 10 mL 10 mL Intravenous q12h Sy De La Fuente APRN, DNP 10 mL at 04/28/25 0850 And sodium chloride 0.9 % flush 10 mL 10 mL Intravenous PRN Sy De La Fuente APRN, DNP spironolactone (Aldactone) tablet 100 mg 100 mg Oral Daily Sy De La Fuente APRN, DNP 100 mg at 04/28/25 0849 tamsulosin (Flomax) 24 hr capsule 0.4 mg 0.4 mg Oral Daily Sy De La Fuente APRN, DNP 0.4 mg at 04/28/25 0848 traZODone (Desyrel) tablet 100 mg 100 mg Oral Nightly Sy De La Fuente APRN, DNP venlafaxine XR (Effexor-XR) 24 hr capsule 150 mg 150 mg Oral Daily Sy De La Fuente APRN, DNP 150 mgat 04/28/25 0848 Current Outpatient Medications Medication Sig Dispense Refill albuterol 108 (90 Base) MCG/ACT inhaler Inhale 2 puffs every 4 to 6 hours as needed for wheezing orshortness of breath. atorvastatin (Lipitor) 40 MG tablet Take 1 tablet by mouth nightly. bisoprolol (Zebeta) 5 MG tablet Take 1 tablet by mouth 2 times a day. bumetanide (Bumex) 2 MG tablet Take 2 tablets by mouth 3 times a day. cariprazine (Vraylar) 3 MG capsule Take 1 capsule by mouth daily. dilTIAZem CD (Cardizem CD) 120 MG 24 hr capsule Take 1 capsule by mouth daily. gabapentin (Neurontin) 600 MG tablet Take 1 tablet by mouth 3 times a day. HYDROcodone-acetaminophen ([place]) 10-325 MG tablet Take 1 tablet by mouth every 6 hours as needed. insulin regular (HumuLIN R,NovoLIN R) 100 UNIT/ML injection vial Inject 225 Units under the skin 2 times a day with meals. LORazepam (Ativan) 1 MG tablet Take 1 tablet by mouth daily as needed. metFORMIN (Glucophage) 1000 MG tablet TAKE 1 TAB BY MOUTH 2 (TWO) TIMES A DAY WITH MEALS. MUST COMPLETE LABS FOR FURTHER RESULTS. 180 tablet 1 mupirocin (Bactroban) 2 % ointment Apply 1 Application topically 2 times a day. omeprazole (PriLOSEC) [address] capsule Take 1 capsule by mouth 2 times a day. ondansetron ODT (Zofran-ODT) 4 MG disintegrating tablet Dissolve 1 tablet on the tongue every 6 hours as needed for nausea or vomiting. 20 tablet 0 Ozempic, 0.25 or 0.5 MG/DOSE, 2 MG/3ML solution pen-injector Inject 0.25 mg under the skin 1 time per week. rivaroxaban (Xarelto) 20 MG tablet Take 1 tablet by mouth daily. spironolactone (Aldactone) 50 MG tablet Take 2 tablets by mouth daily. tamsulosin (Flomax) 0.4 MG 24 hr capsule Take 1 capsule by mouth daily. traZODone (Desyrel) 100 MG tablet Take 1 tablet by mouth nightly. venlafaxine XR (Effoxor-XR) 150 MG 24 hr capsule Take 1 capsule by mouth daily. Insulin Pen Needle (Pen [place]) 31G X 5 MM misc USE TO INJECT INSULIN 3 TIMES PER DAY 100 each 1 naloxone (Narcan) 4 mg/0.1 mL nasal spray 1. Give 1 spray in nostril for no/slow breathing or cannot wake after opioid use 2. Call 911 3. Repeat in other nostril if symptoms continue 1 each 0 Ostomy Supplies (stomahesive) powder powder Apply 1 Application topically as needed (as needed). May apply powder over washed areas, and on top of protectant cream. May be mixed together for application. 28.3 g 3 polyethylene glycol (Miralax) 17 g packet Take 17 g by mouth daily. 30 packet 0 torsemide (Demadex) 20 MG tablet Take 1 tablet by mouth daily. [5] Social History Tobacco Use Smoking status: Former Types: Cigarettes Smokeless tobacco: Current Types: Snuff Tobacco comments: 1 can daily. Vaping Use Vaping status: Never Used Substance Use Topics Alcohol use: Not Currently Drug use: No Comment: Drug use: No illicit drug use [6] Family History Problem Relation Name Age of Onset Alcohol abuse Mother Alcohol abuse Paternal Grandmother Alcohol abuse Mother's Sister Alcohol abuse Mother's Brother Cosigned by Bailey Cueva MD at 04/28/2025 4:05 PM EDT Associated attestation - Bailey Cueva MD - 04/28/2025 4:05 PM EDT The patient was seen only by Advanced Practice Provider ([facility]OOJA), and care was reviewed with me. Bailey Cueva MD * Progress Notes - Maribel Perea - 04/28/2025 9:02 AM EDT Physical Therapy Evaluation Patient Name: Gonzalo Smalls Today's Date: 04/28/2025 PT Discharge Recommendations: Acute rehab Equipment Recommended: Defer to facility History Gonzalo Smalls is 49 y.o. male admitted 04/27/2025 for work-up of Diabetic foot ulcer. Problem List Active Hospital Problems Diagnosis Date Noted Diabetic foot ulcer with osteomyelitis 04/28/2025 COPD (chronic obstructive pulmonary disease) 05/19/2024 CHF (congestive heart failure) 05/19/2024 Diabetic neuropathy 05/19/2024 Insomnia 05/19/2024 Depression 05/19/2024 S/P gastric sleeve procedure 05/19/2024 Diabetic foot ulcer 05/19/2024 Neuropathy 09/30/2021 Type 2 diabetes 12/21/2020 Lower back pain 04/22/2019 Hypertension 02/18/2019 Morbid obesity ([facility]) 12/24/2016 Procedures Past Medical History Patient has a past medical history of Acute kidney injury (05/19/2024), Alcohol abuse, in remission, Anxiety disorder, unspecified, Arthritis, Atrial fibrillation ([facility]), CAP (community acquired pneumonia) (05/19/2024), Cellulitis (05/19/2024), CHF (congestive heart failure), COPD (chronic obstru ctive pulmonary disease), Depression, GERD (gastroesophageal reflux disease), Hyperlipidemia, Hypertension, Left lower lobe pneumonia (05/19/2024), Sleep apnea, Sleep apnea, obstructive, and Type 2 diabetes mellitus. Past Surgical History Patient has a past surgical history that includes Cholecystectomy; Gastric bypass; and arterial stent placement. Precautions Right Lower Extremity Weight Bearing Status: Non-Weight Bearing Medical Precautions: Fall precautions Subjective RN and pt agreeable to physical therapy initial evaluation. Participants in Care Family/Caregiver Present: Yes Family/Caregiver: Spouse Fpga Engineer: Not Applicable Presentation Oxygen Therapy: None (Room air) Lines and Tubes: Intravenous access, Telemetry, Urinary catheter Pre-Session: Supine, Head of bed elevated, Lines intact Pre-Session Comments: RN and pt agreeable to therapy session. Post-Session: Supine, Head of bed elevated, Lines intact, RN notified, Call light in reach Post-Session Comments: Pt placed in position of comfort at end of therapy session. Home Living/Set-up Lives With: Spouse (and 15 yo daughter) Home Type: House Home Adaptive Equipment: Rolling walker, Cane (primarily cane) Home Layout: One level, Stairs to enter with rails Number of Stairs: 3 Bathroom: Tub/Shower: Tub/Shower combo, Tub transfer bench Bathroom: Toilet: Standard Bathroom: Accessibility: Accessible Home Living Comments: has access to 02/02 Prior Level of Function Receives Help From: Spouse ADL Performance: Needs assistance Bathing: Needs assist Upper Body Dressing: Needs assist Lower Body Dressing: Needs assist Grooming: Needs assist Toileting: Independent Eating: Independent Home Management Skills: Needs assist Patient/Family Goals Return home at [facility]. Objective Pain Pt reports 7/10 pain in his bottom. Pt placed in position of comfort at end of therapy session. Delirium Screening RASS: Alert and calm Confusion Assessment Method-ICU (CAM-ICU/PCAM-ICU) Feature 3: Altered Level of Consciousness: Negative Cognition Overall Cognitive Status: Within Functional Limits Arousal/Alertness: Appropriate responses to stimuli Mood/Behavior: Alert Orientation Level: Oriented X4 Single Step Commands: Consistently, 100% of the time Multi-Step Commands: Consistently, 100% of the time Method of Communication: Verbal Vision - Basic Assessment Baseline Vision: Glasses reading Vision Comments: Pt denies any new changes in vision Right Upper Extremity Examination RUE Assessment: Within Functional Limits Manual Muscle Testing - RUE: Within functional limits Sensation Light Touch: Right Upper Extremity: Intact Left Upper Extremity Examination LUE ROM Assessment LUE Assessment: Within Functional Limits Manual Muscle Testing - LUE Manual Muscle Testing - LUE: Within functional limits Sensation Light Touch: Left Upper Extremity: Intact Right Lower Extremity Examination RLE ROM Assessment RLE Assessment: Within Functional Limits Manual Muscle Testing - RLE Hip flexion: 3+ Hip Extension: 3+ Ankle Dorsiflexion: 3+ Sensation Light Touch: Right Lower Extremity: Mild impairment (numbness and tingling distal to calf) Left Lower Extremity Examination LLE Assessment: Within Functional Limits Hip flexion: 4 Knee Extension: 4 Ankle Dorsiflexion: 4 Sensation Light Touch: Left Lower Extremity: Mild impairment (numbness and tingling distal to calf) Bed Mobility Bed Mobility Interventions: Pt given verbal cues timing/sequencing bed mobility. Pt requires increased time to sequence 2/2 pain. Bed Mobility Exam: Rolling/Turning Level of Dundy: Maximum assist (25% patient effort) Physical/Nonphysical Assist: Verbal Cues, Moderate cues Assistive Device: Bed rails, Other (SHOEBLACK) Bed Mobility Exam: Scooting/Bridging Level of Dundy: Maximum assist (25% patient's effort) (up in bed; Lester forward at EOB) Physical/Nonphysical Assist: Verbal Cues, Moderate cues Assistive Device: Bed rails Bed Mobility Exam: Supine to Sit Level of Dundy: Maximum assist (25% patient's effort) Physical/Nonphysical Assist: Verbal Cues, Moderate cues, Set-up required, Additional assist utilized for safety Assistive Device: Other (SHOEBLACK) Bed Mobility Exam: Sit to Supine Level of Dundy: Maximum assist (25% patient's effort) Physical/Nonphysical Assist: Verbal Cues, Moderate cues, Set-up required, Additional assist utilized for safety Assistive Device: Other (Bilateral LE support) Transfers Transfer Interventions: Unable to stand at this time while maintaining NWB status on RLE. Ambulation Pt unable to progress to ambulation at this time 2/2 gross weakness, WB status, and pain. Balance Balance Interventions: Pt tolerated sitting upright at EOB for ~10 minutes with no LOB episodes. Postural Appearance Posture: Within Functional Limits Static Sitting Balance Static Sitting-Balance Support: No upper extremity support, Feet unsupported Static Sitting-Level of Assistance: Contact guard Dynamic Sitting Balance Dynamic Sitting-Balance Support: No upper extremity support, Feet unsupported Dynamic Sitting-Balance: Anterior/Posterior weight shifts, Lateral weight shifts Level of Assistance: Contact guard Therapeutic Activity (11 minutes) Refer to bed mobility and balance sections. Pt benefited from skilled physical therapy interventions including: Monitoring of vitals to ensure activity tolerance Provision of increased time frames to support optimal level of pt participation Skilled organization and management of medical lines/tubes Environmental set-up to ensure safety and accessibility to all needed areas of treatment space Standardized Assessments Standardized Assessments Standardized Assessments: [facility] 6-Clicks Mobility Assessment [facility] 6-Clicks Mobility Assessment Difficulty patient has turning over in bed (including adjusting bedclothes, sheets, and blankets)?:A lot Difficulty patient has sitting down on and standing up from a chair with arms (wheelchair, bedside commode, etc.)?: Unable Difficulty patient has moving from lying on back to sitting on the side of the bed?: A lot How much help does the patient need moving to and from a bed to a chair (including a wheelchair)?: Unable How much help does the patient need to walk in hospital room?: Unable How much help does the patient need climbing 3-5 steps with a railing?: Unable [facility] 6-Clicks Mobility Assessment Total : 8 No data recorded Assessment Pt is a 49yoM who presents with worsening diabetic foot wound. Pt tolerated therapy session well with no adverse response. However, due to current WB status on RLE is unable to stand or ambulate while maintaining precautions.. Pt was previously able to ambulate household distances and now requires physical assistance with all mobility. Pt presents at a significant functional decline from baselineand is not safe to return home at this time due to fall risk, increased caregiver burden, and increased risk for hospital re-admission. As a result, pt would be most appropriate for acute rehab upon hospital discharge. Impairments: Decreased endurance, ventilation, and/or gas exchange, Impaired gait dynamics/performance, Decreased strength, Impaired locomotion, Pain, Impaired functional mobility/transfers, Impairedbalance Activity Limitations: Inability to ambulate community distances, Inability to complete ADLs independently, Inability to ambulate independently, Inability to transfer independently, Inability to ambulate household distances Participation Restrictions: Self-care, Home management, Community leisure Activity Tolerance: Tolerates 10 - 20 min activity with multiple rests Evaluation/Treatment Tolerance: Patient limited by pain Diagnosis: Impaired functional mobility and decreased activity tolerance Rehab Potential: Good, to achieve stated therapy goals Eval Complexity History Profile: 1 - 2 personal factors and/or comorbidities Clinical Presentation: Evolving clinical presentation with changing characteristics Clinical Decision Making: Moderate complexity PT Recommendations Discharge Destination: Acute rehab Discharge Equipment: Defer to facility Plan Planned PT Interventions Balance training, Bed mobility training, Gait training, Transfer training, Strengthening, Functional Mobility PT Frequency 2 - 5 times per week PT Duration 2 weeks Goals PT GOAL DETAILS Time Frame PT Goal 1: Pt will be IND with HEP and discharge recommendations. 2 weeks PT Goal 2: Pt will perform sup<>sit with CGA. 2 weeks PT Goal 3: Pt will perform STS with LRAD and CGA. 2 weeks PT Goal 4: Pt will ambulate 50' with LRAD and CGA. 2 weeks PT Goal 5: Pt will navigate up/down 2 steps with CGA. 2 weeks Written by Maribel Perea on 04/28/25 at 12:46 PM. * Progress Notes - Claudio Kim - 04/28/2025 9:01 AM EDT OCCUPATIONAL THERAPY EVALUATION PATIENT DATA Patient Name Gonzalo Smalls Session Date 04/28/2025 Total Time 26 min OT Discharge Recommendations Acute rehab Equipment Recommendations Defer to facility HISTORY Gonzalo Smalls is 49 y.o. male admitted 04/27/2025 for work-up of Diabetic foot ulcer. Hospital Course No diagnosis found. Procedures (if applicable) Past Medical History Patient has a past medical history of Acute kidney injury (05/19/2024), Alcohol abuse, in remission, Anxiety disorder, unspecified, Arthritis, Atrial fibrillation ([facility]), CAP (community acquired pneumonia) (05/19/2024), Cellulitis (05/19/2024), CHF (congestive heart failure), COPD (chronic obstructive pulmonary disease), Depression, GERD (gastroesophageal reflux disease), Hyperlipidemia, Hypertension, Left lower lobe pneumonia (05/19/2024), Sleep apnea, Sleep apnea, obstructive, and Type 2 diabetes mellitus. Past Surgical History Patient has a past surgical history that includes Cholecystectomy; Gastric bypass; and arterial stent placement. PRECAUTIONS Mobility Guidelines Mobility Protocol: General - Mobility Guidelines Extremity Precautions: No Extremity Precautions Other mobility precautions: No other precautions required Medical Precautions Medical Precautions: Fall precautions SUBJECTIVE PARTICIPANTS IN CARE Subjective Pt reports Visitors Present Spouse Fpga Engineer (if applicable) PRESENTATION Oxygen Room Air Telemetry Yes Lines and Tubes Urethral Catheter (Active) PICC Single Lumen 04/25/25 Left (Active) Pre-Session Supine, Head of bed elevated, Lines intact RN agreeable to OT session. Post-Session Supine, Head of bed elevated, Lines intact, RN notified, Call light in reach All needsmet upon close of session. Bracing (if applicable) HOME LIVING/SET-UP Lives With Spouse (and 15 yo daughter) Home Type House Home Equipment Rolling walker, Cane (primarily cane) Home Layout One level, Stairs to enter with rails Number of Stairs: 3 Bathroom Layout Tub/Shower combo, Tub transfer bench Bathroom: Toilet: Standard Accessible Additional Comments has access to / PRIOR LEVEL OF FUNCTION Receives help from Spouse Level of Mobility Mobility Dundy History of Falls ADL Performance ADL Performance: Needs assistance Bathing: Needs assist Upper Body Dressing: Needs assist Lower Body Dressing: Needs assist Grooming: Needs assist Toileting: Independent Eating: Independent Home Management Skills: Needs assist PATIENT/FAMILY GOALS Pt agreeable to OT eval OBJECTIVE PAIN 7/10 back and buttocks pain Pain management addressed by the following: * pt was positioned for comfort * RN was informed of pt's pain *RN administered pain medication during OT session DELIRIUM SCREENING RASS: Alert and calm Confusion Assessment Method-ICU (CAM-ICU/PCAM-ICU) Feature 3: Altered Level of Consciousness: Negative COGNITION Overall Cognitive Status Within Functional Limits Arousal/Alertness Appropriate responses to stimuli Mood/Behavior Alert Orientation Oriented X4 Command Following Single Step Commands: Consistently, 100% of the time Multi- Step Commands: Consistently, 100% of the time Method of Communication Verbal Additional Observations VISION Baseline Vision Glasses reading Current Vision (if different) Vision Comments: Pt denies any new changes in vision RIGHT UPPER EXTREMITY EXAMINATION Range of Motion Within Functional Limits Manual Muscle Testing Within functional limits Light Touch Sensation Intact LEFT UPPER EXTREMITY EXAMINATION Range of Motion Within Functional Limits Manual Muscle Testing Within functional limits Light Touch Sensation Intact RIGHT LOWER EXTREMITY EXAMINATION Range of Motion Within Functional Limits Manual Muscle Testing Hip flexion: 3+ Hip Extension: 3+ Ankle Dorsiflexion: 3+ Light Touch Sensation Mild impairment (numbness and tingling distal to calf) LEFT LOWER EXTREMITY EXAMINATION Range of Motion Within Functional Limits Manual Muscle Testing Hip flexion: 4 Knee Extension: 4 Ankle Dorsiflexion: 4 Light Touch Sensation Mild impairment (numbness and tingling distal to calf) INTERVENTIONS Bed Mobility Bed Mobility Exam: Rolling/Turning Level of Dundy: Maximum assist (25% patient effort) Physical/Nonphysical Assist: Verbal Cues, Moderate cues Assistive Device: Bed rails, Other (SHOEBLACK) Bed Mobility Exam: Scooting/Bridging Level of Dundy: Maximum assist (25% patient's effort) (up in bed; Lester forward at EOB) Physical/Nonphysical Assist: Verbal Cues, Moderate cues Assistive Device: Bed rails Bed Mobility Exam: Supine to Sit Level of Dundy: Maximum assist (25% patient's effort) Physical/Nonphysical Assist: Verbal Cues, Moderate cues, Set-up required, Additional assist utilized for safety Assistive Device: Other (SHOEBLACK) Bed Mobility Exam: Sit to Supine Level of Dundy: Maximum assist (25% patient's effort) Physical/Nonphysical Assist: Verbal Cues, Moderate cues, Set-up required, Additional assist utilized for safety Assistive Device: Other (Bilateral LE support) Transfers Unable to stand at this time while maintaining NWB status on RLE. Balance Postural Appearance Posture: Within Functional Limits Static Sitting Balance Static Sitting-Balance Support: No upper extremity support, Feet unsupported Static Sitting-Level of Assistance: Contact guard Dynamic Sitting Balance Dynamic Sitting-Balance Support: No upper extremity support, Feet unsupported Dynamic Sitting-Balance: Anterior/Posterior weight shifts, Lateral weight shifts Level of Assistance: Contact guard Self-Care Feeding Feeding Level of Assistance: Independent Grooming Grooming Level of Assistance: Independent (demonstrates functional skills to perform grooming independently at EOB) Lower Extremity Dressing Shoe Level of Assistance: Dependent LE Dressing Where Assessed: Edge of bed Therapeutic Activity (12 minutes) Pt sat EOB several minutes as prep for engaging in seated ADL tasks this date. Attempted sit <> stand transfer x2 attempts, unable to clear buttocks from mattress while maintaining NWB RLE status. Pt reported increasing buttocks pain while seated, returned supine with Max A. Required Max A via draw sheet to scoot to HOB while pulling on bed rails for leverage. Educated pt regarding OT POC an d discharge recommendations. STANDARDIZED ASSESSMENTS [facility] 6-Click Daily Activities Help from Other: Don/Doff Regular Lower Body Clothings: A lot Help From Other: Bathing: A lot Help From Other: Toileting: A lot Help From Other: Don/Doff Upper Body Clothings: None Help From Other: Grooming: None Help From Other: Eating Meals: None [facility] 6 Click - Daily Activities Score: 18 ASSESSMENT OT FINDINGS Pt presents with non-healing diabetic foot ulcer. Pt deemed NWB to RLE per mobility orders. Pt endorses difficulty standing and unable to clear buttocks this date while maintaining NWB, only able to stand when breaking NWB status. Pt to benefit from OT POC during current admission, likely benefit from inpatient rehab prior to return home to maximize independence while receiving medical oversight for wound management. Impaired ADL performance, Impaired IADL performance, Decreased endurance/ventilation/gas exchange, Impaired functional mobility, Impaired balance Evaluation/ Treatment Tolerance (if identified) Patient limited by pain Rehab Potential (if identified) Good, to achieve stated therapy goals Barriers to Discharge (if identified) EVAL COMPLEXITY Occupational Profile Review of medical/therapy records and extensive additional review of physical,cognitive, or psychosocial history Performance Deficits Activities of daily living (ADLs), Instrumental activities of daily living (IADLs), Body functions, Body structures, Personal, Physical, Routines, Habits Clinical Decision Making High Overall Eval Complexity Complex OT RECOMMENDATIONS Discharge Destination Acute rehab Discharge Equipment Defer to facility Recommendations for Referral to Another Service (if applicable) PLAN Planned OT Interventions ADL retraining, IADL retraining, Balance training, Bed mobility Training, Strengthening, Transfer training, Functional mobility OT Frequency 2 - 5 times per week OT Duration 2 weeks OT GOALS OT GOAL DETAILS Time Frame OT Goal 1: Pt will complete sit <> stand and BSC transfers with SBA using AE PRN and maintaining NWB RLE status 2 weeks OT Goal 2: Pt will complete lower body dressing independently 2 weeks OT Goal 3: Pt will verbalize/demonstrate independence with UE HEP to facilitate increased strength and endurance for engaging in functional tasks 2 weeks Written by Claudio Kim on 04/28/25 at 2:18 PM. * Consults - Aileen Leonardo APRN - 04/28/2025 8:14 AM EDT Associated Order(s): Inpatient consult to Diabetes Management Team Inpatient consult to Diabetes Management Team Consult performed by: Aileen Leonardo APRN Consult ordered by: Marjorie Myers MD Reason for consult: u500 user History Of Present Illness Gonzalo Smalls is a 49 y.o. male with hx of CHF, HTN, HLD, a.fib, type 2 DM [on U500 insulin], COPD, QUINN on nightly oxygen, recurrent UTIs, BPH, morbid obesity, and anxiety/depression. Patient presented to ED for evaluation of worsening right diabetic foot ulcer. Mr. Smalls presented to an OSH and Podiatry they are recommended to coming to [facility] for evaluation due to his size and delayed abilityto get him in the OR. Of note, Mr. Smalls is receiving enteral panel for recurrent UTI and has a chronic Barber. Per chart review it appears that the kidney infection is for ESBL E coli. ED lab work was significant for leukocytosis, anemia, hyperglycemia, hypokalemia, hypomagnesemia, elevated CRP and sed rate. 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 Hospital medicine was consulted for admission. Endocrine Diabetes team was consulted for glycemic management on 04/28/25. Patient on U500 insulin dosing at home. The following diabetes history was provided. Chart review of prior external notes also performed toobtain additional information. -DM type: T2DM - Diagnosed about 10 years ago Provider managing diabetes: Endocrinology - last office visit 01/13/2024 At this point, patient was to start Ozempic; Continue 70/30 insulin 60 units TID [last dispensed 02/22/2025] Patient with recent dispense hx from Anette Albarran -DM home medications: Insulin regimen: U500 insulin: prescription for 225 units BID patient reports taking 200 units BID --> first dispensed 03/24/2025 - last dispensed 04/24/2025. insulin pen Reports being on U500 insulin for about 1 month and glycemic control has significantly improved Non insulin diabetes medications: Ozempic - recently started increased dose 0.5 mg this past week Metformin 100 mg BID Failed/Discontinued meds: Glargine: last dispensed 04/17/2025 Novolog mix last dispensed 02/22/2025 Jardiance Did not tolerate Mounjaro due to GI issues, constipation Last insulin dose: AM of 04/27 -Medication compliance per pt:good -Monitoring glucose: CGM - dexcom G7 Reports increased glycemic control since starting U500 insulin about 1 month ago 7 day hx Average glucose 173 63% in range 26% high 10% VH <1% low 0%low Lowest: 70s -Episodes of hypoglycemia: yes, about 2-3 days a week since starting U500 - reports glucose hits the 70s. -Symptomatic with hypoglycemia: yes -Hx of LOC with hypoglycemia: no -Hx of DKA: no -Diet: typically eats 3 meals a day with intermittent snacks BF: egg sandwich Lunch: leftovers/baked oatmeal Dinner: take out/cooking - [employer], cracker barrel Snacks: peanut butter crackers, cheese crackers, fruit, watermelon, grapes Drinks: diet mountain dew and water Retinopathy/vision issues: no Peripheral neuropathy: yes Hx of kidney disease: no Hx of GI issues/gastroparesis: yes- constipation on GLP-1 agonist, hx of cholecystectomy Hx of heart disease: yes Hx of ETOH abuse: yes- reports that he stopped drinking about 4 years ago. 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 Reports having cirrhosis Hx of thyroid [medullary] cancer in patient or family: no [notably does not know paternal family hx] Hx of MEN2 in patient or family: no[notably does not know paternal family hx] Hx of Pancreatitis: no Hx of persistent UTI or [place] infection: yes Hx of HF: yes Past Medical History He has a past medical history of Acute kidney injury (05/19/2024), Alcohol abuse, in remission, Anxiety disorder, unspecified, Arthritis, Atrial fibrillation (CMS/HCC), CAP (community acquired pneumonia) (05/19/2024), Cellulitis (05/19/2024), CHF (congestive heart failure), COPD (chronic obstructive pulmonary disease), Depression, GERD (gastroesophageal reflux disease), Hyperlipidemia, Hypertension, Left lower lobe pneumonia (05/19/2024), Sleep apnea, Sleep apnea, obstructive, and Type 2 diabetes mellitus. Surgical History He has a past surgical history that includes Cholecystectomy; Gastric bypass; and arterial stent placement. Family History Family History[1] Social History He reports that he has quit smoking. His smoking use included cigarettes. His smokeless tobacco useincludes snuff. He reports that he does not currently use alcohol. He reports that he does not use drugs. Allergies Vancomycin Medications Prescriptions Prior to Admission[2] Current Medications[3] Review of Systems Review of Systems Constitutional: Positive for activity change. Negative for appetite change. HENT: Negative for trouble swallowing. Respiratory: Positive for shortness of breath. Hx of sleep apnea - has CPAP at home but doesn't use it consistently Cardiovascular: Positive for leg swelling. Negative for chest pain. Hx of heart failure Gastrointestinal: Positive for constipation. Endocrine: See hx Genitourinary: Positive for difficulty urinating. Retention, active UTI, barber in place Skin: Positive for wound (right lower extremity). Psychiatric/Behavioral: Positive for sleep disturbance. Negative for agitation and confusion. Physical Exam Physical Exam Constitutional: General: He is not in acute distress. Appearance: He is obese. He is ill-appearing. HENT: Head: Normocephalic and atraumatic. Mouth/Throat: Mouth: Mucous membranes are moist. Eyes: Pupils: Pupils are equal, round, and reactive to light. Cardiovascular: Rate and Rhythm: Normal rate. Pulmonary: Effort: Pulmonary effort is normal. No respiratory distress. Comments: Nasal cannula Abdominal: General: There is no distension. Tenderness: There is no abdominal tenderness. Genitourinary: Comments: Barber in place Musculoskeletal: General: Swelling present. Normal range of motion. Cervical back: Normal range of motion. Skin: General: Skin is warm and dry. Findings: Lesion (right lower extremity) present. Neurological: Mental Status: He is alert and oriented to person, place, and time. Mental status is at baseline. Psychiatric: Mood and Affect: Mood normal. Thought Content: Thought content normal. Judgment: Judgment normal. Last Recorded Vitals Blood pressure 136/77, pulse 80, temperature 36.6 ??C (97.9 ??F), temperature source Oral, resp. rate 16, height 1.829 m (6'), weight (!) 274 kg (604 lb 8 oz), SpO2 96%. Relevant Results Lab Results Component Value Date GLUCOSE 135 (H) 04/27/2025 GLUCOSE 301 (H) 12/16/2024 GLUCOSE 199 (H) 12/15/2024 PGLU 271 (H) 04/28/2025 PGLU 271 (H) 04/28/2025 PGLU 199 (H) 04/28/2025 PGLU 193 (H) 12/17/2024 PGLU 222 (H) 12/16/2024 PGLU 179 (H) 12/16/2024 PGLU 210 (H) 12/16/2024 PGLU 203 (H) 12/16/2024 Lab Results Component Value Date HGBA1C 10.9 (H) 12/12/2024 I reviewed bg tracing in epic glucose timeline 04/28/25 Diet Dietary Orders (From admission, onward) Start Ordered 04/28/25 1329 Adult diet Diet texture: Regular; Carbohydrate restriction: Consistent Carb 1 (65 gm max/meal); Sodium restriction: 2,000 mg Na Diet effective now References: IDDSI Diet Texture Guide Question Answer Comment Diet texture Regular Carbohydrate restriction: Consistent Carb 1 (65 gm max/meal) Sodium restriction: 2,000 mg Na 04/28/25 1328 Assessment Diagnoses #diabetic foot ulcer #UTI #obesity -BMI 81.99 -complicates all aspects of care - contributes to insulin resistance #diabetes mellitus - type 2 -Home medications: see HPI -see inpatient diabetes plan of care below Daily Glucose and Insulin Total Daily Dose -consulted 10 AM BG 199 -A1c: Lab Results Component Value Date HGBA1C 10.9 (H) 12/12/2024 -Steroids: none -Diet: regular Plan Primary team requests recommendations and orders -Patient utilizes U500 insulin pen at home. With the U500 pen, a conversion is not needed. Typically patient's required a 70% reduction in home U500 dosing. Taking into account weight-based dosing and home dosing the following insulin regimen was added [basal/bolus]. -After review of glucose trends and insulin delivery over the last 24 hours, titration of intensiveinsulin therapy was made to overall improve glycemic control and improve patient outcomes Current Hospital Regimen: Insulin regimen: Basal: 30 units , NPH, BID Bolus: 20 units lispro to cover meals -Give 1/2 dose if eating 25-50% of meal -HOLD if patient NPO or if patient eats less than 25% of meal -Please document % of meal consumed in intake and output flowsheet. Correction: very resistant dosing 3:50>150 lispro at mealtimes; 1;50>250 lispro bedtime, 3am PRN -Continue intensive glucose monitoring due to increased risk for hyper/hypoglycemia secondary to insulin therapy -Will continue to assess blood glucose trends and adjust basal/bolus insulin therapy dose according-fsbg ac/hs when eating, q6h when NPO, on TF/TPN -correction insulin to be given for hyperglycemia, do not hold correction if patient does not eat. -hypoglycemia protocol in place -Please document the percentage of meals consumed in intake and output flowsheet. 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 Please notify us as patient nears discharge for final recommendations Please contact Aileen Leonardo APRN [place] Adult Inpatient Diabetes team via secure chat orpage us at [phone] during 7a-7p, Thursday-Thursday. For after hours please contact the on-call Endocrine Fellow. Thank you for the opportunity to participate in this patient's care. - Reviewed notes by primary team and consulting services to determine appropriate plan of care as in the note. - Discussed plan and management with patient, family member, primary team, and bedside RN [1] Family History Problem Relation Name Age of Onset Alcohol abuse Mother Alcohol abuse Paternal Grandmother Alcohol abuse Mother's Sister Alcohol abuse Mother's Brother [2] (Not in a hospital admission) [3] Current Facility-Administered Medications Medication Dose Route Frequency Provider Last Rate Last Admin acetaminophen (Tylenol) tablet 1,000 mg 1,000 mg Oral q6h PRN Sy De La Fuente APRN, DNP albuterol 108 (90 Base) MCG/ACT inhaler 2 puff 2 puff Inhalation q4h PRN Sy De La Fuente APRN, DNP atorvastatin (Lipitor) tablet 40 mg 40 mg Oral Nightly Sy De La Fuente APRN, DNP bisoprolol (Zebeta) tablet 5 mg 5 mg Oral BID Sy De La Fuente APRN, DNP 5 mg at 04/28/25 0849 bumetanide (Bumex) tablet 4 mg 4 mg Oral TID Sy De La Fuente APRN, DNP 4 mg at 04/28/25 0848 cariprazine (Vraylar) capsule 3 mg 3 mg Oral Daily Sy De La Fuente APRN, DNP 3 mg at 04/28/25 0928 glucose (Glutose) 40 % oral gel 15-30 grams of glucose 15-30 grams of glucose Sublingual q15 min PRN Sy De La Fuente APRN, DNP Or dextrose 10 % (D10W) bolus 125 mL 125 mL Intravenous q15 min PRN Sy De La Fuente APRN, DNP Or dextrose 10 % (D10W) bolus 250 mL 250 mL Intravenous q15 min PRN Sy De La Fuente APRN, DNP Or glucagon (human recombinant) injection 1 mg 1 mg Intramuscular q15 min PRN Sy De La Fuente APRN, DNP dilTIAZem CD (Cardizem CD) 24 hr capsule 120 mg 120 mg Oral Daily Sy De La Fuente APRN, DNP 120 mg at 04/28/25 0848 gabapentin (Neurontin) capsule 600 mg 600 mg Oral TID Sy De La Fuente APRN, DNP 600 mg at 04/28/25 0848 insulin lispro (Admelog) 100 units/mL injection - Correction - Very Resistant Dose 0-15 Units Subcutaneous TID with meals Aileen Leonardo APRN 9 Units at 04/28/25 1155 insulin lispro (Admelog) injection - Correction - Nighttime Dose 0-3 Units Subcutaneous Twice at night Sy De La Fuente APRN, DNP Insulin Lispro (Admelog, HumaLOG) 100 UNIT/ML injection 20 Units 20 Units Subcutaneous TID with meals Aileen Leonardo APRN 20 Units at 04/28/25 1155 insulin NPH (Isophane) (HumuLIN N,NovoLIN N) injection 30 Units 30 Units Subcutaneous BID Aileen Leonardo APRN ipratropium-albuterol (Duo-Neb) 0.5-2.5 mg/3 mL nebulizer solution 3 mL 3 mL Nebulization q4h PRN Sy De La Fuente APRN, DNP lidocaine (Uro-Jet) 2 % gel 1 Application 1 Application Urethral PRN Sy De La Fuente APRN, DNP LORazepam (Ativan) tablet 1 mg 1 mg Oral Daily PRN Sy De La Fuente APRN, DNP 1 mg at 04/28/25 0849 meropenem (Merrem) 2 g in sodium chloride 0.9 % 100 mL IVPB 2 g Intravenous q8h Sy De La Fuente APRN, DNP Stopped at 04/28/25 1338 ondansetron ODT (Zofran-ODT) disintegrating tablet 4 mg 4 mg Oral q6h PRN Sy De La Fuente APRN, DNP oxyCODONE (Roxicodone) immediate release tablet 5 mg 5 mg Oral q6h PRN Sy De La Fuente APRN, DNP 5 mg at 04/28/25 0849 pantoprazole (Protonix) EC tablet 40 mg 40 mg Oral Daily before breakfast Sy De La Fuente APRN, DNP40 mg at 04/28/25 0848 polyethylene glycol (Miralax) packet 17 g 17 g Oral Daily Sy De La Fuente APRN, DNP [Held by provider] rivaroxaban (Xarelto) tablet 20 mg 20 mg Oral Daily Sy De La Fuente APRN, DNP sodium chloride 0.9 % flush 10 mL 10 mL Intravenous q12h Sy De La Fuente APRN, DNP 10 mL at 04/28/25 0850 And sodium chloride 0.9 % flush 10 mL 10 mL Intravenous PRN Sy De La Fuente APRN, DNP spironolactone (Aldactone) tablet 100 mg 100 mg Oral Daily Sy De La Fuente APRN, DNP 100 mg at 04/28/25 0849 tamsulosin (Flomax) 24 hr capsule 0.4 mg 0.4 mg Oral Daily Sy De La Fuente APRN, DNP 0.4 mg at 04/28/25 0848 traZODone (Desyrel) tablet 100 mg 100 mg Oral Nightly Sy De La Fuente APRN, DNP venlafaxine XR (Effexor-XR) 24 hr capsule 150 mg 150 mg Oral Daily Sy De La Fuente APRN, DNP 150 mgat 04/28/25 0848 Current Outpatient Medications Medication Sig Dispense Refill albuterol 108 (90 Base) MCG/ACT inhaler Inhale 2 puffs every 4 to 6 hours as needed for wheezing orshortness of breath. atorvastatin (Lipitor) 40 MG tablet Take 1 tablet by mouth nightly. bisoprolol (Zebeta) 5 MG tablet Take 1 tablet by mouth 2 times a day. bumetanide (Bumex) 2 MG tablet Take 2 tablets by mouth 3 times a day. cariprazine (Vraylar) 3 MG capsule Take 1 capsule by mouth daily. dilTIAZem CD (Cardizem CD) 120 MG 24 hr capsule Take 1 capsule by mouth daily. gabapentin (Neurontin) 600 MG tablet Take 1 tablet by mouth 3 times a day. HYDROcodone-acetaminophen ([place]) 10-325 MG tablet Take 1 tablet by mouth every 6 hours as needed. insulin regular (HumuLIN R,NovoLIN R) 100 UNIT/ML injection vial Inject 200 Units under the skin 2 times a day with meals. LORazepam (Ativan) 1 MG tablet Take 1 tablet by mouth daily as needed for anxiety (must last 30 days). metFORMIN (Glucophage) 1000 MG tablet TAKE 1 TAB BY MOUTH 2 (TWO) TIMES A DAY WITH MEALS. MUST COMPLETE LABS FOR FURTHER RESULTS. 180 tablet 1 mupirocin (Bactroban) 2 % ointment Apply 1 Application topically 2 times a day. omeprazole (PriLOSEC) [address] capsule Take 1 capsule by mouth 2 times a day. ondansetron ODT (Zofran-ODT) 8 MG disintegrating tablet Dissolve 1 tablet on the tongue every 12 hours as needed for nausea or vomiting. Ozempic, 0.25 or 0.5 MG/DOSE, 2 MG/3ML solution pen-injector Inject 0.25 mg under the skin 1 time per week. rivaroxaban (Xarelto) 20 MG tablet Take 1 tablet by mouth daily. spironolactone (Aldactone) 50 MG tablet Take 2 tablets by mouth daily. tamsulosin (Flomax) 0.4 MG 24 hr capsule Take 1 capsule by mouth daily. traZODone (Desyrel) 100 MG tablet Take 1 tablet by mouth nightly. venlafaxine XR (Effoxor-XR) 150 MG 24 hr capsule Take 1 capsule by mouth daily. Insulin Pen Needle (Pen [place]) 31G X 5 MM [facility] USE TO INJECT INSULIN 3 TIMES PER DAY 100 each 1 naloxone (Narcan) 4 mg/0.1 mL nasal spray 1. Give 1 spray in nostril for no/slow breathing or cannot wake after opioid use 2. Call 911 3. Repeat in other nostril if symptoms continue 1 each 0 Ostomy Supplies (stomahesive) powder powder Apply 1 Application topically as needed (as needed). May apply powder over washed areas, and on top of protectant cream. May be mixed together for application. 28.3 g 3 Cosigned by Raza Méndez MD at 04/30/2025 12:46 PM EDT Associated attestation - Raza Méndez MD - 04/30/2025 12:46 PM EDT The patient was seen only by Advanced Practice Provider (POOJA). * H&P - Sy De La Fuente APRN, DNP - 04/28/2025 6:09 AM EDTAssociated Order(s): Consult to [facility] Steve Images from the original note were not included. Consult to [facility] Rich Wilson Consult performed by: Sy De La Fuente APRN, DNP Consult ordered by: Man Garcia DO Reason for consult: Diabetic foot ulcer Chief complaint: Wound check History Of Present Illness Gonzalo Smalls is a 49 y.o. male with past medical history of CHF, HTN, HLD, AFib on Xarelto, type 2 DM, COPD, QUINN on 2 L nasal cannula nightly, recurrent UTIs, BPH, morbid obesity, and anxiety/depression who presents to ED for evaluation of a worsening right diabetic foot ulcer. Mr. Smalls reports that the wound opened up a proximally 3 months ago and that over the last 2-3 weeks the wound has steadily gotten worse. Mr. Smalls presented to an OSH and Podiatry they are recommended to coming to for evaluation due to his size and delayed ability to get him in the OR. Of note, Mr. Smalls is receiving enteral panel for recurrent UTI and has a chronic Barber. Per chart review it appears t hat the kidney infection is for ESBL E coli. ED lab work was significant for leukocytosis, anemia, hyperglycemia, hypokalemia, hypomagnesemia, elevated CRP and sed rate. 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 Hospital medicine was consulted for admission. Upon assessment for admission, Mr. Smalls is alert and oriented x3, afebrile, and HDS. His review of systems is negative, he denies any fevers, chills, shortness of breath, chest pain, palpitations,nausea, vomiting, diarrhea, constipation, or chills. He will be admitted to Hospital Medicine for further workup and evaluation Past Medical History Past Medical History[1] Surgical History Surgical History[2] Family History[3] Social History He reports that he has quit smoking. His smoking use included cigarettes. His smokeless tobacco useincludes snuff. He reports that he does not currently use alcohol. He reports that he does not use drugs. Allergies Vancomycin Scheduled: Current Scheduled Medications[4] Continuous: Current Continuous Medications[5] As needed: acetaminophen, 1,000 mg, q6h PRN albuterol, 2 puff, q4h PRN glucose, 15-30 grams of glucose, q15 min PRN Or dextrose 10 %, 125 mL, q15 min PRN Or dextrose 10 %, 250 mL, q15 min PRN Or glucagon (human recombinant), 1 mg, q15 min PRN ipratropium-albuterol, 3 mL, q4h PRN lidocaine, 1 Application, PRN LORazepam, 1 mg, Daily PRN ondansetron ODT, 4 mg, q6h PRN oxyCODONE, 5 mg, q6h PRN sodium chloride, 10 mL, PRN Prior to Admission medications Medication Sig Start Date End Date Taking? Authorizing Provider acetaminophen (Tylenol) 325 MG tablet Take 2 tablets by mouth every 6 hours as needed for pain. Under [place] law, monthly prescriptions (30 days) can be refilled at 25 days and three-month prescriptions (90 days) at 80 days. Please contact the insurance company with questions if refills are denied. 12/17/24 Rachael Berrios APRN albuterol 108 (90 Base) MCG/ACT inhaler Inhale 2 puffs every 4 to 6 hours as needed for wheezing orshortness of breath. Provider, Historical atorvastatin (Lipitor) 40 MG tablet Take 1 tablet by mouth daily. 05/10/18 Provider, Historical bisoprolol (Zebeta) 5 MG tablet Take 1 tablet by mouth 2 times a day. 01/17/21 Provider, Historical cariprazine (Vraylar) 3 MG capsule Take 1 capsule by mouth daily. Provider, Historical dilTIAZem CD (Cardizem CD) 120 MG 24 hr capsule Take 1 capsule by mouth daily. Provider, Historical gabapentin (Neurontin) 600 MG tablet Take 1 tablet by mouth 3 times a day. 09/05/21 Provider, Historical HYDROcodone-acetaminophen ([place]) 10-325 MG tablet Take 1 tablet by mouth every 6 hours as needed. Provider, Historical insulin NPH-insulin regular (NovoLIN 70/30 FlexPen) (70-30) 100 UNIT/ML injection pen Inject 90 Units under the skin 3 times a day before meals. FURTHER REFILLS WILL BE PROVIDED UPON ATTENDANCE OF NEXT OFFICE VISIT 03/29/25 02/22/25 Divine Archer APRN Insulin Pen Needle (Pen [place]) 31G X 5 MM [facility] USE TO INJECT INSULIN 3 TIMES PER DAY 02/27/25 Divine Archer APRN LORazepam (Ativan) 1 MG tablet Take 1 tablet by mouth daily as needed. 12/17/16 Provider, Historical metFORMIN (Glucophage) 1000 MG tablet TAKE 1 TAB BY MOUTH 2 (TWO) TIMES A DAY WITH MEALS. MUST COMPLETE LABS FOR FURTHER RESULTS. 10/17/24 Divine Archer APRN mupirocin (Bactroban) 2 % ointment Apply 1 Application topically 2 times a day. Provider, Historical naloxone (Narcan) 4 mg/0.1 mL nasal spray 1. Give 1 spray in nostril for no/slow breathing or cannot wake after opioid use 2. Call 911 3. Repeat in other nostril if symptoms continue 12/17/24 Rachael Berrios APRN omeprazole (PriLOSEC) [address] capsule Take 1 capsule by mouth 2 times a day. 11/03/16 Provider, Historical ondansetron ODT (Zofran-ODT) 4 MG disintegrating tablet Dissolve 1 tablet on the tongue every 6 hours as needed for nausea or vomiting. 12/17/24 Rachael Berrios APRN Ostomy Supplies (stomahesive) powder powder Apply 1 Application topically as needed (as needed). May apply powder over washed areas, and on top of protectant cream. May be mixed together for application. 01/10/25 Abigail King APRN oxyCODONE (Roxicodone) 5 MG immediate release tablet Take 1 tablet by mouth every 6 hours as neededfor severe pain. Patient not taking: Reported on 01/10/2025 12/17/24 Rachael Berrios APRN Ozempic, 0.25 or 0.5 MG/DOSE, 2 MG/3ML solution pen-injector Inject 0.25 mg under the skin 1 time per week. 01/26/25 Provider, Historical polyethylene glycol (Miralax) 17 g packet Take 17 g by mouth daily. 12/17/24 Rachael Berrios APRN rivaroxaban (Xarelto) 20 MG tablet Take 1 tablet by mouth daily. 12/16/19 Provider, Historical spironolactone (Aldactone) 50 MG tablet Take 1 tablet by mouth daily. 09/09/20 Provider, Historical tamsulosin (Flomax) 0.4 MG 24 hr capsule Take 1 capsule by mouth daily. 02/20/25 Provider, Historical torsemide (Demadex) 20 MG tablet Take 1 tablet by mouth daily. Provider, Historical traZODone (Desyrel) 100 MG tablet Take 1 tablet by mouth nightly. 02/18/19 Provider, Historical venlafaxine XR (Effoxor-XR) 150 MG 24 hr capsule Take 1 capsule by mouth daily. 05/10/18 Provider, Historical Labs (in last 24 hours): CBC: Lab Results Component Value Date WBC 12.00 (H) 04/27/2025 RBC 4.48 (L) 04/27/2025 HGB 10.4 (L) 04/27/2025 HCT 33.3 (L) 04/27/2025 PLT 282 04/27/2025 MCV 74 (L) 04/27/2025 MCH 23.2 (L) 04/27/2025 MCHC 31.2 04/27/2025 RDW 19.4 (H) 04/27/2025 NRBC 0.0 04/27/2025 Differential: Lab Results Component Value Date WBC 12.00 (H) 04/27/2025 NEUTOPHILPCT 82 04/27/2025 LYMPHOPCT 9 04/27/2025 MONOPCT 7 04/27/2025 EOSPCT 2 04/27/2025 Coagulation: No results found for: INR , PT , PTT , CLFGN Renal: Lab Results Component Value Date NA 135 (L) 04/27/2025 K 3.3 (L) 04/27/2025 CL 90 (L) 04/27/2025 CO2 29 04/27/2025 BUN 8 04/27/2025 CREATININE 0.84 04/27/2025 GLUCOSE 135 (H) 04/27/2025 CALCIUM 9.0 04/27/2025 MG 1.2 (L) 04/27/2025 Liver: No results found for: AST , ALT , ALPHO , BILITOT , BILIDIR Glucose: No results found for: PGLU Lab Results Component Value Date HGBA1C 10.9 (H) 12/12/2024 Microbiology: Results Procedure Component Value Units Date/Time Blood Culture (Aerobic/Anaerobet Set) [[id number]] Collected: 04/27/252215 Order Status: Completed Specimen: Blood, Venous Updated: 04/28/25111 Culture Culture in lab Blood Culture (Aerobic/Anaerobet Set) [[id number]] Collected: 04/27/252215 Order Status: Completed Specimen: Blood, Venous Updated: 04/28/25111 Culture Culture in lab Imaging (in last 24 hours): CT Foot Right w IV Contrast Result Date: 04/28/2025 Soft tissue defect along the dorsal lateral foot and open, comminuted fracture and irregularity of the fifth metatarsal head. These findings are compatible with osteomyelitis. No discrete abscess. Exam limited by positioning. CRITICAL RESULT: No. COMMUNICATION: Per this written report. Preliminary report signed by Haritha Govea DO on 04/28/2025 5:19 AM By electronically signing this report, I, the attending physician, attest that I have personally reviewed the images/data for the above examination(s) and agree with the final edited report. Drafted by Haritha Govea DO on 04/28/2025 5:00 AM Final report signed by Roderick Alcala MD on 04/28/2025 5:27 AM XR Foot Right 3+ Views Result Date: 04/27/2025 Chronic ulcer in the lateral forefoot. There is adjacent osseous destruction and erosions at the fifth MTP suggestive of osteomyelitis. CRITICAL RESULT: No. COMMUNICATION: Per this written report. Drafted by Kim Bai MD on 04/27/2025 11:38 PM Final report signed by Kim Bai MD on 04/27/2025 11:40 PM EKG/Echo: No results found for this or any previous visit (from the past 4464 hours). No echocardiogram results found for the past 12 months Last Recorded Vitals Vitals: 04/28/25 0000 04/28/25 0100 04/28/25 0315 04/28/25 0600 BP: 120/66 BP Location: Patient Position: Pulse: 74 Resp: 17 18 18 18 Temp: TempSrc: SpO2: 100% Weight: Height: Intake/Output Summary (Last 24 hours) at 04/28/2025 0714 Last data filed at 04/28/2025 0050 Gross per 24 hour Intake -- Output 600 ml Net -600 ml Admission weight: Weight: (!) 274 kg (604 lb 8 oz) Review of Systems All other systems reviewed and are negative. Physical Exam Constitutional: Appearance: He is obese. HENT: Head: Normocephalic and atraumatic. Right Ear: External ear normal. Left Ear: External ear normal. Nose: Nose normal. Mouth/Throat: Mouth: Mucous membranes are moist. Pharynx: Oropharynx is clear. Eyes: Extraocular Movements: Extraocular movements intact. Conjunctiva/sclera: Conjunctivae normal. Pupils: Pupils are equal, round, and reactive to light. Cardiovascular: Rate and Rhythm: Regular rhythm. Pulses: Normal pulses. Heart sounds: Normal heart sounds. Pulmonary: Effort: Pulmonary effort is normal. Breath sounds: Normal breath sounds. Abdominal: Palpations: Abdomen is soft. Musculoskeletal: Cervical back: Normal range of motion and neck supple. Right lower le+ Edema present. Left lower le+ Edema present. Skin: General: Skin is warm and dry. Capillary Refill: Capillary refill takes 2 to 3 seconds. Neurological: General: No focal deficit present. Mental Status: He is alert and oriented to person, place, and time. Psychiatric: Mood and Affect: Mood normal. Behavior: Behavior normal. Thought Content: Thought content normal. Judgment: Judgment normal. Assessment and plan: Principal problem: Diabetic foot ulcer - Principal Problem: Diabetic foot ulcer Active Problems: Morbid obesity (CMS/HCC) Hypertension Type 2 diabetes Neuropathy CHF (congestive heart failure) COPD (chronic obstructive pulmonary disease) Depression Diabetic neuropathy Insomnia Lower back pain S/P gastric sleeve procedure Diabetic foot ulcer with osteomyelitis #Chronic Right Diabetic Foot Ulcer - Etiology: poor glucose control, improper foot care, ill-fitting foot wear, peripheral neuropathy,poor circulation, - A1c, 12/12/24: 10.9 - CT, right foot: soft tissue defect along the dorsal lateral foot and open comminuted fracture, and irregularity of 5th metatarsal with findings compatible for osteomyelitis. Mood discrete abscess - XR, right foot: Chronic ulcer in the lateral forefoot with adjacent osseous destruction and erosion of the 5th MTP - Temp: 37.1 ??C (98.8 ??F) (Oral), HR: 74, BP: 120/66, RR: 18, SpO2: 100% - WBC: 12.00 (H), H&H: 10.4 (L)/ 33.3 (L), Plt: 282, ANC: 9.73 (H) - Na: 135 (L), K: 3.3 (L), Cl: 90 (L), CO2: 29, sCr: 0.84, A, BUN: 8, eGFR: 108.2, Ca: 9.0, M.2 (L), - CRP: 82.6, Sed Rate >100 Plan - Clinical Pathway Initiated - ABIs pending - MRI w/ contrast pending - Meropenem 1 g q.8 hours #Type 2 DM #Neuropathy - Glu 135 - home regimen: Metformin 1 g BID Regular Insulin 225 units BID - home meds: Gabapentin 600 mg TID Plan - hold oral DM meds - continue gabapentin - hospital regimen: Regular Insulin 125u BID ISS per protocol - FSBS per protocol - 2CC diet #UTI #Recurrent UTI #BPH - Barber in place due to in an adequate bladder emptying - PICC in place for IV intrapartum 1 g for 7 days - home meds: Flomax Plan - Barber care per protocol - Hold IV antibiotics, replaced for neoplasm - Continue home Flomax #HTN - bisoprolol 5 mg BID #Afib - Xarelto 20 mg daily, diltiazem 120 mg daily; hold Xarelto pending possible procedures #CHF - echo, 09/13/24: 50%, Bumex 4 mg TID, spironolactone 100 mg daily #HLD - atorvastatin 40 mg daily #COPD - albuterol inhaler 2 puffs q.4 PRN #Anxiety/Depression - Vraylar 3 mg BID, lorazepam 1 mg daily, venlafaine 150 mg daily, #insomnia - trazodone #Chronic low back pain - norco 10-325; hold #GERD - omeprazole 40 mg twice daily #Morbid Obesity - failed gastric sleeve, Ozempic, BMI 81.99, complicates all aspects of care #QUINN - 2 L nasal cannula at night Diet Adult diet Diet texture: Regular; Sodium restriction: 2,000 mg Na DVT prophylaxis Prophylactic Lovenox [1] Past Medical History: Diagnosis Date Acute kidney injury 05/19/2024 Alcohol abuse, in remission Alcohol abuse, in remission Anxiety disorder, unspecified Anxiety Arthritis Atrial fibrillation ([facility]/HCC) CAP (community acquired pneumonia) 05/19/2024 Cellulitis 05/19/2024 CHF (congestive heart failure) COPD (chronic obstructive pulmonary disease) Depression GERD (gastroesophageal reflux disease) Hyperlipidemia Hypertension Left lower lobe pneumonia 05/19/2024 Sleep apnea Sleep apnea, obstructive Type 2 diabetes mellitus [2] Past Surgical History: Procedure Laterality Date ARTERIAL STENT PLACEMENT CHOLECYSTECTOMY GASTRIC BYPASS [3] Family History Problem Relation Name Age of Onset Alcohol abuse Mother Alcohol abuse Paternal Grandmother Alcohol abuse Mother's Sister Alcohol abuse Mother's Brother [4] atorvastatin, 40 mg, Oral, Nightly bisoprolol, 5 mg, Oral, BID bumetanide, 4 mg, Oral, TID cariprazine, 3 mg, Oral, Daily dilTIAZem CD, 120 mg, Oral, Daily gabapentin, 600 mg, Oral, TID insulin lispro, 0-10 Units, Subcutaneous, TID with meals insulin lispro, 0-3 Units, Subcutaneous, Twice at night insulin NPH (Isophane), 130 Units, Subcutaneous, BID meropenem, 1 g, Intravenous, q8h pantoprazole, 40 mg, Oral, Daily polyethylene glycol, 17 g, Oral, Daily [Held by provider] rivaroxaban, 20 mg, Oral, Daily sodium chloride, 10 mL, Intravenous, q12h spironolactone, 100 mg, Oral, Daily tamsulosin, 0.4 mg, Oral, Daily traZODone, 100 mg, Oral, Nightly venlafaxine XR, 150 mg, Oral, Daily [5] * ED Provider Notes - Jessa Law MD - 04/27/2025 7:16 PM EDT Images from the original note were not included. - HPI Chief Complaint Patient presents with Wound Check PIT Note: Gonzalo Smalls is a 49 y.o. male who presents to the ED with wound check. Pt complains of worseningdiabetic foot wound for 3 months on R foot dorsal surface with concern for bone being exposed now. Pt endorses prior bedside debridements but has never required surgical I&D. Pt denies fevers, warmth, chills, vomiting. History provided by: Patient sergeant of officers used: No I agree with the above note with any of the following exceptions. I assumed care for the patient. Patient is a 49-year-old male who presents to the ED with complaints of a foot wound. Patient has past medical history of type 2 diabetes on insulin, hypertension, Afib on Xarelto, CHF, COPD, obesity. Patient states that he has had a wound on his right foot for about 3 months in his continued to worsen. He said it started when he was walking and socks in his house and a previous wound that it healed ???reopened?? . Patient has had Podiatry for wound care but over the last few days it has worsened in his not been able to go due to difficulty walking from peripheral edema. He is currently on Bumex per his cardiology team for his peripheral edema. Patient is also currently receiving ertapenem every day for the next 5 days. He has been on it for 2 days IV infusions. Patient tells me he is receiving this due to a ???kidney infection?? where he was admitted at [facility]. Patient denies any shortness of breath, fevers, chest pain, abdominal pain. Patient has a catheter in which was placed due to the recurrent UTIs he was getting from a neurogenic bladder that he tells me is from his diabetes as he has overflow incontinence. Patient denies any other symptoms at this time. Patient History Past Medical History[1] Surgical History[2] Family History[3] Social History[4] Allergies: Allergies[5] Physical Exam ED Triage Vitals [04/27/25 191] Temp Heart Rate Resp BP 37.1 ??C (98.8 ??F) 107 24 130/74 SpO2 Temp Source Heart Rate Source Patient Position 99 % Oral -- Sitting BP Location FiO2 (%) Right arm -- Physical Exam Constitutional: General: He is not in acute distress. Appearance: He is obese. He is not ill-appearing or toxic-appearing. HENT: Head: Normocephalic. Comments: No facial swelling Right Ear: External ear normal. Left Ear: External ear normal. Nose: Nose normal. Mouth/Throat: Mouth: Mucous membranes are moist. Pharynx: Oropharynx is clear. Eyes: Extraocular Movements: Extraocular movements intact. Conjunctiva/sclera: Conjunctivae normal. Cardiovascular: Rate and Rhythm: Tachycardia present. Pulmonary: Effort: Pulmonary effort is normal. No respiratory distress. Breath sounds: Normal air entry. Comments: Speaking full sentences. Symmetric chest rise Abdominal: General: There is no distension. Musculoskeletal: General: No deformity. Normal range of motion. Cervical back: Normal range of motion. Comments: Atraumatic, moves all extremities spontaneously Skin: Comments: Patient has a large wound on the dorsum of his right foot in the lateral aspect. It appears there is some necrotic tissue present. See media tab for the wound. Neurological: Mental Status: He is alert and oriented to person, place, and time. Mental status is at baseline. Comments: Awake Psychiatric: Behavior: Behavior normal. Shelley Coma Scale Score: 15 ED Course & MDM - Assessment: 49 y.o. male presents to ED with complaint of chronic foot wound. It should be noted that the chronic conditions includes diabetes, obesity, CHF, COPD, hypertension, AFib on Xarelto, which currently is not at goal therapy. This complicates the clinical picture because it Comorbidities: may be exacerbating symptoms, increases the amount and complexity of data to be reviewed, complicates the clinical workup, and increases the risk for morbidity Patient initially presented mildly tachycardic with a clear source of infection. Patient was already on the ertapenem so initiation of antibiotics were pause initially. Patient was found to have a white count. We obtained blood cultures and provided some mild fluid resuscitation given his CHF status and fluid overload. X-ray was obtained and a CT was ordered to assess for possible osteomyelitis as this was our primary concern. Patient had pulses so we had low concerned for acute ischemic limb at this time. Patient did not appear to be in DKA at this time. I got records from his previous hospital visit at [facility] which showed he was being treated for an ESBL E coli UTI from the ertapenem and in discussion with our pharmacy team we initiated 1 dose of Merrem here in the ED as this would be appropriate coverage for the foot infection as well as this ESBL UTI. Patient was stable during hospital stay in the ED. Patient was admitted to Internal Medicine for osteomyelitis treatment. Differential Diagnosis: Cellulitis, necrotizing fasciitis, osteomyelitis, sepsis, DKA, HHS, PAD In order to fully explore the differential diagnosis the following treatments and tests were ordered: ED Medication Administration from 04/27/2025 1916 to 04/28/2025 0626 Date/Time Order Dose Route Action 04/27/2025 2235 EDT lactated Ringer's infusion 500 mL 500 mL Intravenous New Bag 04/27/2025 2235 EDT magnesium sulfate IVPB 2 g 2 g Intravenous New Bag 04/27/2025 2300 EDT HYDROmorphone (Dilaudid) injection 1 mg 1 mg Intravenous Given 04/28/2025 0050 EDT magnesium sulfate IVPB 2 g 0 g Intravenous Stopped 04/28/2025 0115 EDT lactated Ringer's infusion 500 mL 0 mL Intravenous Stopped 04/28/2025 0212 EDT HYDROmorphone (Dilaudid) injection 0.5 mg 0.5 mg Intravenous Given 04/28/2025 0247 EDT meropenem (Merrem) 1 g in sodium chloride 0.9% 100 mL IVPB (vial adapter required) 1 g Intravenous New Bag 04/28/2025 0248 EDT meropenem (Merrem) 1 g in sodium chloride 0.9% 100 mL IVPB (vial adapter required) -- Intravenous Canceled Entry 04/28/2025 0317 EDT meropenem (Merrem) 1 g in sodium chloride 0.9% 100 mL IVPB (vial adapter required) 0 g Intravenous Stopped 04/28/2025 0335 EDT iohexol (OMNIPaque) 300 MG/ML injection 100 mL 100 mL Intravenous Given All Other Orders Ordered Status Ordering Provider 04/28/25541 Consult to [facility] Once Specialty: Internal Medicine Provider: (Not yet assigned) Acknowledged SUMAN NATARAJAN 04/28/25 05 ED to floor bed request Once Acknowledged SUMAN NATARAJAN 04/28/25541 Once Specialty: Orthopaedic Surgery Provider: (Not yet assigned) Canceled SUMAN NATARAJAN 04/27/252223 CT Foot Right w IV Contrast Once Final result JESSA LAW 04/27/252223 Sed rate, automated STAT Final result JESSA LAW 04/27/252154 Beta-Hydroxybutyric Acid STAT Final result SUMAN NATARAJAN 04/27/252154 Blood gas, venous STAT Final result SUMAN NATARAJAN 04/27/252154 Blood Culture (Aerobic/Anaerobet Set) STAT Preliminary result SUMAN NATARAJAN 04/27/252154 Blood Culture (Aerobic/Anaerobet Set) STAT Preliminary result SUMAN NATARAJAN 04/27/252154 Magnesium STAT Final result SUMAN NATARAJAN 04/27/252154 Type and screen Start now Final result MICKEYLUIS MIGUELSUMAN 04/27/252154 XR Foot Right 3+ Views Once Final result SUMAN NATARAJAN 04/27/252106 Hepatitis C Antibody - ED Once Final result MADHU RITCHIE 04/27/252106 ED Protocol - HIV 1/2 Antibody/Antigen Screen Once Final result MADHU RITCHIE 04/27/252106 ED HIV 1/2 Antibody/Antigen Screen w/Reflex to HIV 1/2 Differentiation PROCEDURE ONCE Final result MADHU RITCHIE 04/27/252106 BMP STAT Final result MADHU RITCHIE 04/27/252106 CBC w/diff STAT Final result MADHU RITCHIE 04/27/252106 C-reactive protein STAT Final result MADHU RITCHIE 04/27/252106 Insert peripheral IV Continuous Acknowledged MADHU RITCHIE ED Course as of 05/07/25 1047 Michaelle Apr 27, [id number] Magnesium(!) Repleting mag [SH] 2217 CBC w/diff(!) Leukocytosis with left shift concerning for acute infection, correlates with the foot infection. [SH] 2229 Blood gas, venous(!) No acidosis or bicarb depletion. Low concern for DKA [SH] Maria C Apr 28, 2025 0238 Spoke with pharmacy team, patient had ertapenem coverage and we expanded to Merrem for 1 time dose prior to likely admission given the lack of Pseudomonas coverage. I spoke with the remittance clerk to tryto get records from [facility] to see why he was being treated with ertapenem for UTIs. [SH] 0625 Magnesium(!) Repleted [SH] 0626 CT Foot Right w IV Contrast osteo [SH] Shefali May 07, 2025 1045 XR Foot Right 3+ Views [DL] ED Course User Index [DL] Jessa Law MD [SH] Suman Natarajan, DO Clinical Impressions as of 05/07/25 1047 Other chronic osteomyelitis of right foot (CMS/HCC) Social Determinates of Health Risks (including Economic Stability, Education and level of understanding, Healthcare access and quality and concerning social factors): Poor health literacy Ultimately, this patient was Was admitted (Admission) There were no encounter diagnoses.. Patient believed to require admission for the listed diagnoses. The Internal Medicine service was consulted for admission and was agreeable to admit toAcute Floor (Med/Surg). ED Prescriptions None Disposition Admit - 04/28/2025, 6:26 AM Scribe Attestation: This note was dictated to me, Akbar Foote, acting as a scribe for Dr. Madhu Ritchie M.D. Attending Attestation: This documentation was recorded by Akbar Foote acting as a scribe in my presence at the time of the encounter and accurately reflects the service I personally performed and thedecisions made by me. Suman Natarajan, DO Resident 04/28/25 0626 Suman Natarajan, Resident 05/04/25 1221 I saw and evaluated the patient with the resident/fellow. I discussed the case with the resident/fellow and agree with the findings and plan as documented. I personally interpreted XR which demonstrated bony erosion of the first great toe with erosion at the 5th MTP, concerning for osteomyelitis. CT foot obtained for further evaluation. I personally interpreted CT which demonstrated findings consistent with osteomyelitis. [1] Past Medical History: Diagnosis Date Acute kidney injury 05/19/2024 Alcohol abuse, in remission Alcohol abuse, in remission Anxiety disorder, unspecified Anxiety Arthritis Atrial fibrillation ([facility]) CAP (community acquired pneumonia) 05/19/2024 Cellulitis 05/19/2024 CHF (congestive heart failure) COPD (chronic obstructive pulmonary disease) Depression GERD (gastroesophageal reflux disease) Hyperlipidemia Hypertension Left lower lobe pneumonia 05/19/2024 Sleep apnea Sleep apnea, obstructive Type 2 diabetes mellitus [2] Past Surgical History: Procedure Laterality Date ARTERIAL STENT PLACEMENT CHOLECYSTECTOMY GASTRIC BYPASS [3] Family History Problem Relation Name Age of Onset Alcohol abuse Mother Alcohol abuse Paternal Grandmother Alcohol abuse Mother's Sister Alcohol abuse Mother's Brother [4] Tobacco Use Smoking status: Former Types: Cigarettes Smokeless tobacco: Current Types: Snuff Tobacco comments: 1 can daily. Vaping Use Vaping status: Never Used Substance Use Topics Alcohol use: Not Currently Drug use: No Comment: Drug use: No illicit drug use [5] Allergies Allergen Reactions Vancomycin Other - please document in the comment field Red man syndrome Ani, Jessa, MD 05/07/25 1047 * ED Triage Notes - Francisco Javier Hansen, RN - 04/27/2025 7:16 PM EDT Pt endorsing diabetic wound to his R foot x2-3 months. documented in this encounter Plan of Treatment Upcoming Encounters Date Type Department Care Team (Late st Contact Info) Description 05/30/2025 2:40 PM EST Office Visit [facility] [address] [place] [address] Sheila Marcano, PA [address] [facility] [address] [place] [address] 06/14/2025 1:40 PM EST Office Visit Jacqueline Nunez [facility] Endocrinology [address] [place] [id number] Divine Archer P, FITTING ROOM OPERATOR [address] [facility] [address] [place] [address] 06/22/2025 1:40 PM EST Office Visit [facility] [address] [place] [address] Mary Vicente MD [address] [facility] [address] [place] [address] Scheduled Orders Name Type Priority Associated Diagnoses Order Schedule Surgical Pathology Exam Pathology and Cytology Routine Once (Lab) for 1 Occurrences starting 05/01/2025 until 05/01/2025 Scheduled Referrals Name Type Priority Associated Diagnoses Orde r Schedule Discharge Ambulatory referral to Vascular Surgery Outpatient Referral Routine Diabetic foot ulcer with osteomyelitis Expected: 06/03/2025, Expires: 11/04/2026 Discharge Ambulatory referral to Endocrinology Outpatient Referral Routine Uncontrolled type 2 diabetes mellitus with hyperglycemia, with long-term current use of insulin Type 2 diabetes mellitus with diabetic peripheral angiopathy without gangrene, with long-term current use of insulin Expected: 06/05/2025, Expires: 11/06/2026 documented as of this encounter Procedures Procedure Name Priority Date/Time Associated Diagnosis Comments POCT GLUCOSE METER UNSOLICITED RESULTS Routine 05/18/2025 8:09 AM EST POCT GLUCOSE METER UNSOLICITED RESULTS Routine 05/17/2025 7:54 PM EST POCT GLUCOSE METER UNSOLICITED RESULTS Routine 05/17/2025 5:13 PM EST ECHO, ADULT TRANSTHORACIC COMPLETE W/ CONTRAST Routine 05/17/2025 9:51 AM EST POCT GLUCOSE METER UNSOLICITED RESULTS Routine 05/16/2025 5:37 PM EST ECG ADULT Routine 05/16/2025 3:33 PM EST POCT GLUCOSE METER UNSOLICITED RESULTS Routine 05/16/2025 12:06 PM EST POCT GLUCOSE METER UNSOLICITED RESULTS Routine 05/16/2025 8:17 AM EST CBC WITH AUTO DIFFERENTIAL Routine 05/16/2025 4:08 AM EST PHOSPHORUS, PLASMA Routine 05/16/2025 4: 08 AM EST MAGNESIUM, PLASMA Routine 05/16/2025 4:0 8 AM EST BASIC METABOLIC PANEL, PLASMA Routine 05/16/2025 4:08 AM EST POCT GLUCOSE METER UNSOLICITED RESULTS Routine 05/15/2025 8:00 PM EST POCT GLUCOSE METER UNSOLICITED RESULTS Routine 05/15/2025 4:52 PM EST POCT GLUCOSE METER UNSOLICITED RESULTS Routine 05/15/2025 12:46 PM EST POCT GLUCOSE METER UNSOLICITED RESULTS Routine 05/15/2025 11:31 AM EST POCT GLUCOSE METER UNSOLICITED RESULTS Routine 05/15/2025 8:12 AM EST CBC WITH AUTO DIFFERENTIAL Routine 05/15/2025 2:24 AM EST PHOSPHORUS, PLASMA Routine 05/15/2025 2: 24 AM EST MAGNESIUM, PLASMA Routine 05/15/2025 2:2 4 AM EST BASIC METABOLIC PANEL, PLASMA Routine 05/15/2025 2:24 AM EST POCT GLUCOSE METER UNSOLICITED RESULTS Routine 05/14/2025 8:09 PM EST POCT GLUCOSE METER UNSOLICITED RESULTS Routine 05/14/2025 5:10 PM EST POCT GLUCOSE METER UNSOLICITED RESULTS Routine 05/14/2025 12:15 PM EST POCT GLUCOSE METER UNSOLICITED RESULTS Routine 05/14/2025 8:30 AM EST CBC WITH AUTO DIFFERENTIAL Routine 05/14/2025 1:45 AM EDT PHOSPHORUS, PLASMA Routine 05/14/2025 1: 45 AM EDT MAGNESIUM, PLASMA Routine 05/14/2025 1:4 5 AM EDT BASIC METABOLIC PANEL, PLASMA Routine 05/14/2025 1:45 AM EDT POCT GLUCOSE METER UNSOLICITED RESULTS Routine 05/13/2025 4:58 PM EDT POCT GLUCOSE METER UNSOLICITED RESULTS Routine 05/13/2025 11:37 AM EDT POCT GLUCOSE METER UNSOLICITED RESULTS Routine 05/13/2025 7:42 AM EDT CBC WITH AUTO DIFFERENTIAL Routine 05/13/2025 3:54 AM EDT PHOSPHORUS, PLASMA Routine 05/13/2025 3: 54 AM EDT MAGNESIUM, PLASMA Routine 05/13/2025 3:5 4 AM EDT BASIC METABOLIC PANEL, PLASMA Routine 05/13/2025 3:54 AM EDT POCT GLUCOSE METER UNSOLICITED RESULTS Routine 05/12/2025 7:40 PM EDT POCT GLUCOSE METER UNSOLICITED RESULTS Routine 05/12/2025 4:36 PM EDT POCT GLUCOSE METER UNSOLICITED RESULTS Routine 05/12/2025 11:30 AM EDT POCT GLUCOSE METER UNSOLICITED RESULTS Routine 05/12/2025 8:08 AM EDT CBC WITH AUTO DIFFERENTIAL Routine 05/12/2025 3:56 AM EDT PHOSPHORUS, PLASMA Routine 05/12/2025 3: 56 AM EDT MAGNESIUM, PLASMA Routine 05/12/2025 3:5 6 AM EDT BASIC METABOLIC PANEL, PLASMA Routine 05/12/2025 3:56 AM EDT POCT GLUCOSE METER UNSOLICITED RESULTS Routine 05/12/2025 3:11 AM EDT POCT GLUCOSE METER UNSOLICITED RESULTS Routine 05/11/2025 7:57 PM EDT POCT GLUCOSE METER UNSOLICITED RESULTS Routine 05/11/2025 5:05 PM EDT POCT GLUCOSE METER UNSOLICITED RESULTS Routine 05/11/2025 12:13 PM EDT POCT GLUCOSE METER UNSOLICITED RESULTS Routine 05/11/2025 7:57 AM EDT ECG ADULT Routine 05/11/2025 6:11 AM EDT POCT GLUCOSE METER UNSOLICITED RESULTS Routine 05/11/2025 3:42 AM EDT CBC WITH AUTO DIFFERENTIAL Routine 05/11/2025 3:24 AM EDT PHOSPHORUS, PLASMA Routine 05/11/2025 3: 24 AM EDT MAGNESIUM, PLASMA Routine 05/11/2025 3:2 4 AM EDT BASIC METABOLIC PANEL, PLASMA Routine 05/11/2025 3:24 AM EDT POCT GLUCOSE METER UNSOLICITED RESULTS Routine 05/10/2025 7:07 PM EDT POCT GLUCOSE METER UNSOLICITED RESULTS Routine 05/10/2025 4:55 PM EDT POCT GLUCOSE METER UNSOLICITED RESULTS Routine 05/10/2025 11:41 AM EDT ECG ADULT Routine 05/10/2025 11:20 AM EDT POCT GLUCOSE METER UNSOLICITED RESULTS Routine 05/10/2025 7:30 AM EDT ECG ADULT Routine 05/10/2025 6:14 AM EDT POCT GLUCOSE METER UNSOLICITED RESULTS Routine 05/10/2025 4:00 AM EDT POCT GLUCOSE METER UNSOLICITED RESULTS Routine 05/09/2025 8:37 PM EDT MAGNESIUM, PLASMA Routine 05/09/2025 5:5 4 PM EDT BASIC METABOLIC PANEL, PLASMA Routine 05/09/2025 5:54 PM EDT POCT GLUCOSE METER UNSOLICITED RESULTS Routine 05/09/2025 5:17 PM EDT ECG ADULT Routine 05/09/2025 12:34 PM EDT POCT GLUCOSE METER UNSOLICITED RESULTS Routine 05/09/2025 12:25 PM EDT POCT GLUCOSE METER UNSOLICITED RESULTS Routine 05/09/2025 7:52 AM EDT POCT GLUCOSE METER UNSOLICITED RESULTS Routine 05/08/2025 11:54 PM EDT POCT GLUCOSE METER UNSOLICITED RESULTS Routine 05/08/2025 7:33 PM EDT POCT GLUCOSE METER UNSOLICITED RESULTS Routine 05/08/2025 5:00 PM EDT POCT GLUCOSE METER UNSOLICITED RESULTS Routine 05/08/2025 11:42 AM EDT POCT GLUCOSE METER UNSOLICITED RESULTS Routine 05/08/2025 8:05 AM EDT POCT GLUCOSE METER UNSOLICITED RESULTS Routine 05/08/2025 3:56 AM EDT POCT GLUCOSE METER UNSOLICITED RESULTS Routine 05/07/2025 8:14 PM EDT POCT GLUCOSE METER UNSOLICITED RESULTS Routine 05/07/2025 5:10 PM EDT POCT GLUCOSE METER UNSOLICITED RESULTS Routine 05/07/2025 12:04 PM EDT POCT GLUCOSE METER UNSOLICITED RESULTS Routine 05/07/2025 7:41 AM EDT POCT GLUCOSE METER UNSOLICITED RESULTS Routine 05/07/2025 3:41 AM EDT POCT GLUCOSE METER UNSOLICITED RESULTS Routine 05/06/2025 8:01 PM EDT POCT GLUCOSE METER UNSOLICITED RESULTS Routine 05/06/2025 4:40 PM EDT PROSTATE SPECIFIC ANTIGEN, DIAGNOSTIC, SERUM Routine 05/06/2025 12:27 PM EDT POCT GLUCOSE METER UNSOLICITED RESULTS Routine 05/06/2025 11:28 AM EDT POCT GLUCOSE METER UNSOLICITED RESULTS Routine 05/06/2025 8:13 AM EDT POCT GLUCOSE METER UNSOLICITED RESULTS Routine 05/06/2025 3:09 AM EDT POCT GLUCOSE METER UNSOLICITED RESULTS Routine 05/05/2025 8:19 PM EDT POCT GLUCOSE METER UNSOLICITED RESULTS Routine 05/05/2025 5:09 PM EDT POCT GLUCOSE METER UNSOLICITED RESULTS Routine 05/05/2025 11:29 AM EDT POCT GLUCOSE METER UNSOLICITED RESULTS Routine 05/05/2025 7:55 AM EDT POCT GLUCOSE METER UNSOLICITED RESULTS Routine 05/04/2025 7:35 PM EDT POCT GLUCOSE METER UNSOLICITED RESULTS Routine 05/04/2025 4:51 PM EDT POCT GLUCOSE METER UNSOLICITED RESULTS Routine 05/04/2025 11:51 AM EDT POCT GLUCOSE METER UNSOLICITED RESULTS Routine 05/04/2025 8:09 AM EDT POCT GLUCOSE METER UNSOLICITED RESULTS Routine 05/04/2025 4:44 AM EDT POCT GLUCOSE METER UNSOLICITED RESULTS Routine 05/03/2025 7:27 PM EDT CREATINE KINASE, TOTAL, PLASMA Timed 05/03/2025 6:22 PM EDT COMPREHENSIVE METABOLIC PANEL, PLASMA Timed 05/03/2025 6:22 PM EDT POCT GLUCOSE METER UNSOLICITED RESULTS Routine 05/03/2025 5:30 PM EDT POCT GLUCOSE METER UNSOLICITED RESULTS Routine 05/03/2025 11:36 AM EDT POCT GLUCOSE METER UNSOLICITED RESULTS Routine 05/03/2025 8:09 AM EDT POCT GLUCOSE METER UNSOLICITED RESULTS Routine 05/03/2025 3:37 AM EDT HEPATITIS B SURFACE ANTIBODY, QUANTITATIVE Routine 05/03/2025 3:16 AM EDT HEPATITIS A ANTIBODY IGG Routine 05/03/2025 3:16 AM EDT HEPATITIS B CORE TOTAL AB (IGG AND IGM) Routine 05/03/2025 3:16 AM EDT HEPATITIS B SURFACE ANTIGEN Routine 05/03/2025 3:16 AM EDT CBC WITH AUTO DIFFERENTIAL Routine 05/03/2025 3:16 AM EDT PHOSPHORUS, PLASMA Routine 05/03/2025 3: 16 AM EDT MAGNESIUM, PLASMA Routine 05/03/2025 3:1 6 AM EDT BASIC METABOLIC PANEL, PLASMA Routine 05/03/2025 3:16 AM EDT POCT GLUCOSE METER UNSOLICITED RESULTS Routine 05/02/2025 8:48 PM EDT POCT GLUCOSE METER UNSOLICITED RESULTS Routine 05/02/2025 4:30 PM EDT NASOPHARYNGEAL RESPIRATORY PANEL Routine 05/02/2025 1:05 PM EDT POCT GLUCOSE METER UNSOLICITED RESULTS Routine 05/02/2025 12:08 PM EDT POCT GLUCOSE METER UNSOLICITED RESULTS Routine 05/02/2025 8:11 AM EDT POCT GLUCOSE METER UNSOLICITED RESULTS Routine 05/02/2025 4:01 AM EDT CREATINE KINASE, TOTAL, PLASMA Timed 05/02/2025 3:10 AM EDT CBC WITH AUTO DIFFERENTIAL Routine 05/02/2025 3:10 AM EDT PHOSPHORUS, PLASMA Routine 05/02/2025 3: 10 AM EDT MAGNESIUM, PLASMA Routine 05/02/2025 3:1 0 AM EDT BASIC METABOLIC PANEL, PLASMA Routine 05/02/2025 3:10 AM EDT POCT GLUCOSE METER UNSOLICITED RESULTS Routine 05/01/2025 8:26 PM EDT POCT GLUCOSE METER UNSOLICITED RESULTS Routine 05/01/2025 5:55 PM EDT POCT GLUCOSE METER UNSOLICITED RESULTS Routine 05/01/2025 11:51 AM EDT POCT GLUCOSE METER UNSOLICITED RESULTS Routine 05/01/2025 9:13 AM EDT SURGICAL PATHOLOGY EXAM Routine 05/01/2025 8:13 AM EDT Other chronic osteomyelitis of right foot (CMS/HCC) AMPUTATION, TOE 05/01/2025 7:15 AM EDT Other chronic osteomyelitis of right foot (CMS/HCC) TYPE AND SCREEN Routine 05/01/2025 6:49 AM EDT POCT GLUCOSE METER UNSOLICITED RESULTS Routine 05/01/2025 6:48 AM EDT CREATINE KINASE, TOTAL, PLASMA Timed 05/01/2025 2:14 AM EDT CBC WITH AUTO DIFFERENTIAL Routine 05/01/2025 2:14 AM EDT PHOSPHORUS, PLASMA Routine 05/01/2025 2: 14 AM EDT MAGNESIUM, PLASMA Routine 05/01/2025 2:1 4 AM EDT BASIC METABOLIC PANEL, PLASMA Routine 05/01/2025 2:14 AM EDT POCT GLUCOSE METER UNSOLICITED RESULTS Routine 04/30/2025 8:21 PM EDT POCT GLUCOSE METER UNSOLICITED RESULTS Routine 04/30/2025 4:19 PM EDT WOUND OSTOMY EVAL AND TREAT Routine 04/30/2025 2:37 PM EDT POCT GLUCOSE METER UNSOLICITED RESULTS Routine 04/30/2025 12:11 PM EDT POCT GLUCOSE METER UNSOLICITED RESULTS Routine 04/30/2025 8:18 AM EDT CBC WITH AUTO DIFFERENTIAL Routine 04/30/2025 3:19 AM EDT PHOSPHORUS, PLASMA Routine 04/30/2025 3: 19 AM EDT MAGNESIUM, PLASMA Routine 04/30/2025 3:1 9 AM EDT BASIC METABOLIC PANEL, PLASMA Routine 04/30/2025 3:19 AM EDT POCT GLUCOSE METER UNSOLICITED RESULTS Routine 04/29/2025 7:38 PM EDT POCT GLUCOSE METER UNSOLICITED RESULTS Routine 04/29/2025 5:21 PM EDT POCT GLUCOSE METER UNSOLICITED RESULTS Routine 04/29/2025 11:15 AM EDT POCT GLUCOSE METER UNSOLICITED RESULTS Routine 04/29/2025 7:13 AM EDT IRON & TOTAL IRON BINDING CAPACITY, PLASMA (INCLUDES TRANSFERRIN) Routine 04/29/2025 3:04 AM EDT CBC WITH AUTO DIFFERENTIAL Routine 04/29/2025 3:04 AM EDT TSH Routine 04/29/2025 3:04 AM EDT PHOSPHORUS, PLASMA Routine 04/29/2025 3: 04 AM EDT MAGNESIUM, PLASMA Routine 04/29/2025 3:0 4 AM EDT HEMOGLOBIN A1C Routine 04/29/2025 3:04 AM EDT FOLATE, SERUM Routine 04/29/2025 3:04 AM EDT FERRITIN, SERUM Routine 04/29/2025 3:04 AM EDT VITAMIN B12, SERUM Routine 04/29/2025 3: 04 AM EDT CORTISOL Routine 04/29/2025 3:04 AM EDT COMPREHENSIVE METABOLIC PANEL, PLASMA Routine 04/29/2025 3:04 AM EDT POCT GLUCOSE METER UNSOLICITED RESULTS Routine 04/28/2025 9:06 PM EDT POCT GLUCOSE METER UNSOLICITED RESULTS Routine 04/28/2025 5:34 PM EDT POCT GLUCOSE METER UNSOLICITED RESULTS Routine 04/28/2025 3:51 PM EDT VAS ANKLE BRACHIAL INDEX - GABBI ONLY Routine 04/28/2025 3:16 PM EDT MULTI DRUG RESISTANCE TEST STAT 04/28/2025 1:44 PM EDT POCT GLUCOSE METER UNSOLICITED RESULTS Routine 04/28/2025 12:52 PM EDT POCT GLUCOSE METER UNSOLICITED RESULTS Routine 04/28/2025 11:39 AM EDT EXTRA TUBE LAVENDER TOP Routine 04/28/2025 8:13 AM EDT EXTRA TUBE LIGHT GREEN TOP Routine 04/28/2025 8:13 AM EDT EXTRA TUBES Routine 04/28/2025 8:13 AM EDT APTT Routine 04/28/2025 8:13 AM EDT PROTHROMBIN TIME(PT) / INR Routine 04/28/2025 8:13 AM EDT ECG ADULT STAT 04/28/2025 7:20 AM EDT POCT GLUCOSE METER UNSOLICITED RESULTS Routine 04/28/2025 7:17 AM EDT WOUND OSTOMY EVAL AND TREAT Routine 04/28/2025 7:[address] FOOT RIGHT W IV CONTRAST STAT 04/28/2025 3:41 AM EDT XR FOOT RIGHT 3+ VIEWS STAT 11:13 PM EDT BLOOD CULTURE (AEROBIC/ANAEROBIC SET) STAT 04/27/2025 10:16 PM EDT BLOOD CULTURE (AEROBIC/ANAEROBIC SET) STAT 04/27/2025 10:16 PM EDT TYPE AND SCREEN STAT 04/27/2025 10:16 PM EDT BLOOD GAS PANEL, VENOUS STAT 04/27/2025 10:16 PM EDT ED HIV 1/2 ANTIBODY/ANTIGEN SCREEN WITH REFLEX TO HIV I/II DIFFERENTIATION STAT 04/27/2025 9:37 PM EDT ED PROTOCOL HIV 1/2 ANTIBODY/ANTIGEN SCREEN W/REFLEX TO HIV 1/2 ANTIBODY DIFFERENTIATION STAT 04/27/2025 9:37 PM EDT BETA HYDROXYBUTYRIC ACID STAT Add-on 04/27/2025 9:37 PM EDT CREATINE KINASE, TOTAL, PLASMA Add-On 04/27/2025 9:37 PM EDT PROCALCITONIN, PLASMA Add-On 04/27/2025 9:37 PM EDT HEPATITIS C ANTIBODY - ED W/REFLEX TO HCV QUANT PCR STAT 04/27/2025 9:37 PM EDT SEDIMENTATION RATE, AUTOMATED STAT Add-on 04/27/2025 9:37 PM EDT CBC WITH AUTO DIFFERENTIAL STAT 04/27/2025 9:37 PM EDT C-REACTIVE PROTEIN, PLASMA STAT 04/27/2025 9:37 PM EDT MAGNESIUM, PLASMA STAT Add-on 04/27/2025 9:3 7 PM EDT BASIC METABOLIC PANEL, PLASMA STAT 04/27/2025 9:37 PM EDT documented in this encounter Results * (ABNORMAL) POCT glucose meter (05/18/2025 8:09 AM EST) [facility] POCT Glucose 124(H) 74 - 99 mg/dL 05/18/2025 8:11 AM EST [facility] Comment:Accuracy of a glucos e result obtained from a capillary whole blood specimen relies upon adequate, non-compromised capillary blood flow. If the capillary glucose result is not consistent with the patient's clinical signs and symptoms, glucose testing should be repeated with either an arterial or venous sample on the glucometer or sent to the main labortory for testing. Comment 05/18/2025 8:11 AM EST [facility] Liquefier ID Char Hinojosa 05/18/2025 8:11 AM EST [facility] Device ID [id number] 05/18/2025 8:11 AM EST [facility] Specimen Type POC Capillary 05/18/2025 8:11 AM EST [facility] Blood Capillary blood specimen / Unknown 05/18/2025 8:09 AM EST 05/18/2025 8:11 AM EST Wily Goyal DO LAB POINT OF CARE TE ST DOCKED DEVICE UNSOLICITED RESULTS Final Result Performing Organization Address City/State/[facility] Co de Phone Number [facility] [address] [place] [address] * (ABNORMAL) POCT glucose meter (05/17/2025 7:54 PM EST) [facility] POCT Glucose 216(H) 74 - 99 mg/dL 05/17/2025 7:55 PM EST [facility] Comment:Accuracy of a glucos e result obtained from a capillary whole blood specimen relies upon adequate, non-compromised capillary blood flow. If the capillary glucose result is not consistent with the patient's clinical signs and symptoms, glucose testing should be repeated with either an arterial or venous sample on the glucometer or sent to the main labortory for testing. Comment 05/17/2025 7:55 PM EST [facility] Liquefier ID Ron Lal 7:55 PM EST [facility] Device ID [id number] 05/17/2025 7:55 PM EST [facility] Specimen Type POC Capillary 05/17/2025 7:55 PM EST [facility] Blood Capillary blood specimen / Unknown 05/17/2025 7:54 PM EST 05/17/2025 7:55 PM EST [facility] LAB POINT OF CARE TE ST DOCKED DEVICE UNSOLICITED RESULTS Final Result Performing Organization Address City/[facility] Co de Phone Number [facility] [address] [place] [address] * (ABNORMAL) POCT glucose meter (05/17/2025 5:13 PM EST) [facility] POCT Glucose 186(H) 74 - 99 mg/dL 05/17/2025 5:14 PM EST [facility] Comment:Accuracy of a glucos e result obtained from a capillary whole blood specimen relies upon adequate, non-compromised capillary blood flow. If the capillary glucose result is not consistent with the patient's clinical signs and symptoms, glucose testing should be repeated with either an arterial or venous sample on the glucometer or sent to the main labortory for testing. Comment 05/17/2025 5:14 PM EST [facility] Liquefier ID Char Hinojosa 05/17/2025 5:14 PM EST [facility] Device ID [id number] 05/17/2025 5:14 PM EST [facility] Specimen Type POC Capillary 05/17/2025 5:14 PM EST [facility] Blood Capillary blood specimen / Unknown 05/17/2025 5:13 PM EST 05/17/2025 5:14 PM EST Umnicolas Goyal DO LAB POINT OF CARE TE ST DOCKED DEVICE UNSOLICITED RESULTS Final Result Performing Organization Address City/[facility] Co de Phone Number [facility] [address] [place] [address] * ECHO, ADULT TRANSTHORACIC COMPLETE W/ CONTRAST (05/17/2025 9:51 AM EST) [facility] BSA 3.30 m2 [facility] Height 182.9 [facility] ISCV Weight 247.2 [facility]SCV LVIDd 51 mm [facility] LVIDs 40 mm [facility] IVSd 12 mm [facility]SC[facility] LVPWd 12 mm [facility]SC[facility] LV MASS(C)D 241 g HANK ISCV [facility] CV ECHO LV MASS INDEX 73 g/m2 HANK ISCV LV RWT 0.47 mm [facility] ISC[facility] LV EDV(MOD-4ch) 326 mL HANK ISCV LV ESV(MOD4ch) 108 mL HANK ISCV EF(MOD-sp4) 67 % HANK ISCV LV EDV(MOD-2ch) 262 mL HANK ISCV LV ESV(MOD2ch) 130 mL HANK ISCV EF(MOD-sp2) 50 % HANK ISCV EDV(MOD-bp) 294 mL [facility]ANK ISCV ESV(MOD-bp) 119 mL HANK ISCV EF(MOD-bp) 60 % [facility]SC[facility] LVOT diam 28 mm [facility]SCV LVOT AREA 6.2 cm2 [facility] ISC[facility] LV V1 VTI 19.3 cm [facility]ANK ISCV SV(LVOT) 119 mL [facility]SC[facility] MV E Vmax 78.3 cm/s HANK ISCV MV A Vmax 48.3 cm/s [facility]ANK ISCV MV E/A 1.6 cm/s [facility]SC[facility] LA dimension 41 mm [facility]ANK ISCV RV base 48 mm HANK ISCV RV Mid 43 mm HANK ISCV RV Length 85 mm HANK ISCV RV s' Anthony 26.3 cm/s [facility]ANK ISCV TAPSE 29 mm HANK ISCV PA acc time 120 msec [facility] ISCV mean PAP 25 mmHg HANK ISCV LV V1 Vmax 95.7 cm/s HANK ISCV Ao V2 VTI 23.3 cm HANK ISCV Ao mean PG 3 mmHg [facility]ANK ISCV Ao V2 Vmax 121.0 cm/s HANK ISCV Ao max PG 6 mmHg [facility]SC[facility] AV VTI Index 0.83 [facility]SCV JESUS(I,D) 5.1 cm2 HANK ISCV JESUS(VTI)/BSA_ph l 1.5 cm2/m2 [facility]SCV MV V2 VTI 21.6 cm [facility]ANK ISCV MV MG 1 mmHg HANK [facility]SCV MV V2 max 73.4 cm/s HANK ISCV MV max PG 2 mmHg [facility]ANK [facility]SCV MV dec slope 267 cm/s2 HANK ISCV MV dec time 190 ms HANK ISCV MV P1/2t 55 ms [facility]SCV MVA(P1/2t) 4.0 cm2 [facility]SC[facility] Ao Root Diam 38 mm [facility]ANK ISCV Asc Ao Diam 37 mm [facility]ANK [facility]SC[facility] PA ID(ACCEL) 24.6 mmHg [facility]ANK ISCV LV mean PG 2.0 mmHG [facility]ANK ISCV LV V1 mean 67.6 cm/sec HANK ISCV LV max PG 3.7 mmHg HANK ISCV LVLs ap2 8.7 mm HANK ISCV AV-pr VR 0.8 HANK ISCV Ao V2 mean 82.0 cm/s HANK ISCV Anatomical Region Laterality Modality Echocardiography Narrative 05/17/2025 12:14 PM EST Left Ventricle: The left ventricle is not well visualized. After the administration of an ultrasound enhancing agent, the endocardial visualization was improved. The left ventricle is not well visualized, but is grossly normal in size. There is concentric hypertrophy. No left ventricular mass or thrombus is seen. The left ventricular systolic function is normal. The LVEF cannot be measured due to poor image quality but is grossly normal (>50%). Due to poor image quality, comprehensive regional wall motion was not interpretable; but no focal wall motion abnormalities were seen in the visualized segments. There is no recent study available for direct [id number] comparison. Left Ventricle The left ventricle is not well visualized. After the administration of an ultrasound enhancing agent, the endocardial visualization was improved. The left ventricle is not well visualized, but is grossly normal in size. There is concentric hypertrophy. No left ventricular mass or thrombus is seen. The left ventricular systolic function is normal. The LVEF cannot be measured due to poor image quality but is grossly normal (>50%). Due to poor image quality, comprehensive regional wall motion was not interpretable; but no focal wall motion abnormalities were seen in the visualized segments. Right Ventricle The right ventricle is dilated. The right ventricular systolic function is normal. The spectral Doppler envelope of TR is not adequate for calculating the right ventricular systolic pressure (RVSP). Based upon other 2D and Doppler features, the RVSP is probably normal or at most mildly elevated. Left Atrium The left atrium not well visualized. The interatrial septum is not well visualized. Right Atrium The right atrium was not well visualized. IVC/SVC The IVC was not well visualized, and an assumed pressure of 8mmHg was used for calculations. Mitral Valve The mitral valve leaflets are normal in appearance with no evidence of mitral valve prolapse. There is physiologic amount of mitral regurgitation. There is no mitral stenosis. Tricuspid Valve The tricuspid valve is normal in appearance. There is physiologic amount of tricuspid regurgitation. There is no tricuspid stenosis. Aortic Valve The aortic valve appears grossly normal. There is no valvular regurgitation. There is no hemodynamically significant valvular aortic stenosis. Pulmonic Valve The pulmonic valve is grossly normal. There is physiologic pulmonic regurgitation. There is no pulmonic stenosis. Pericardium No pericardial effusion. Great Vessels The aortic root is normal in size. The sinus of Valsalva (aortic root) diameter is 38 mm by leading edge to leading edge method. In the maximally visualized portion, the ascending aorta appears normal in size. The main pulmonary artery is normal in size. Study Details A complete transthoracic echocardiogram using two-dimensional (2D), m-mode, color and spectral flow Doppler imaging was performed. During the study the apical, parasternal and subcostal view was captured. Definity contrast was used during the study. The study was technically difficult due to patient's body habitus. Heart rate was normal. Height: 182.9 cm. Weight: 247.2 kg. BSA: 3.30 m2. The heart rhythm during this exam was most suggestive of a sinus rhythm. Study Recommendation There is no recent study available for direct [id number] comparison. Wily Goyal DO CV ECHO PROCEDURES Final Result * (ABNORMAL) POCT glucose meter (05/16/2025 5:37 PM EST) POCT Glucose 283(H) 74 - 99 mg/dL 05/16/2025 5:39 PM EST [facility] Comment:Accuracy of a glucos e result obtained from a capillary whole blood specimen relies upon adequate, non-compromised capillary blood flow. If the capillary glucose result is not consistent with the patient's clinical signs and symptoms, glucose testing should be repeated with either an arterial or venous sample on the glucometer or sent to the main labortory for testing. Comment 05/16/2025 5:39 PM EST [facility] Liquefier ID Char Hinojosa 05/16/2025 5:39 PM EST [facility] Device ID [id number] 05/16/2025 5:39 PM EST [facility] Specimen Type POC Capillary 05/16/2025 5:39 PM EST [facility] Blood Capillary blood specimen / Unknown 05/16/2025 5:37 PM EST 05/16/2025 5:39 PM EST Umar R Jay Jay DO LAB POINT OF CARE TE ST DOCKED DEVICE UNSOLICITED RESULTS Final Result Performing Organization Address City/[facility]/ZIP Co de Phone Number [facility] [address] [place] [address] * ECG Adult (05/16/2025 3:33 PM EST) EKG DIAGNOSIS CLASS Abnormal MUSE ECG Ventricular Rate 58 BPM MUSE ECG Atrial Rate 58 BPM MUSE ECG ID Interval 184 ms MUSE ECG QRSD Interval 158 ms MUSE ECG QT Interval 496 ms MUSE ECG QTC Interval 486 ms MUSE ECG P [place] 30 degrees MUSE ECG R [place] -35 degrees MUSE ECG T Wave [place] -5 degrees MUSE ECG Diagnosis Sinus bradycardia MUSE ECG Diagnosis Left axis deviation MUSE ECG Diagnosis Right bundle branch block MUSE ECG Diagnosis Minimal voltage criteria for LVH, may be normal variant ( R in aVL ) MUSE ECG Diagnosis Abnormal ECG MUSE ECG Diagnosis MUSE ECG Diagnosis Confirmed by Lorie Montejo ([id number]) on 05/18/2025 12:15:08 AM MUSE ECG 05/16/2025 3:33 PM EST 05/18/2025 12:15 AM EST Umar R Jay Jay DO ECG ORDERABLES Final Result Performing Organization Address City/[facility] Co de Phone Number MUSE ECG * (ABNORMAL) POCT glucose meter (05/16/2025 12:06 PM EST) Pathologist [facility] POCT Glucose 161(H) 74 - 99 mg/dL 05/16/2025 12:07 PM EST [facility] Comment:Accuracy of a glucos e result obtained from a capillary whole blood specimen relies upon adequate, non-compromised capillary blood flow. If the capillary glucose result is not consistent with the patient's clinical signs and symptoms, glucose testing should be repeated with either an arterial or venous sample on the glucometer or sent to the main labortory for testing. Comment 05/16/2025 12:07 PM EST [facility] Liquefier ID Char Hinojosa 05/16/2025 12:07 PM EST [facility] Device ID [id number] 05/16/2025 12:07 PM EST [facility] Specimen Type POC Capillary 05/16/2025 12:07 PM EST [facility] Blood Capillary blood specimen / Unknown 05/16/2025 12:06 PM EST 05/16/2025 12:07 PM EST us Selin Lee MD LAB POINT OF CARE TE ST DOCKED DEVICE UNSOLICITED RESULTS Final Result Performing Organization Address City/[facility] Co de Phone Number [facility] [address] [place] [address] * (ABNORMAL) POCT glucose meter (05/16/2025 8:17 AM EST) [facility] POCT Glucose 168(H) 74 - 99 mg/dL 05/16/2025 8:21 AM EST [facility] Comment:Accuracy of a glucos e result obtained from a capillary whole blood specimen relies upon adequate, non-compromised capillary blood flow. If the capillary glucose result is not consistent with the patient's clinical signs and symptoms, glucose testing should be repeated with either an arterial or venous sample on the glucometer or sent to the main labortory for testing. Comment 05/16/2025 8:21 AM EST [facility] Liquefier ID Char Hinojosa 05/16/2025 8:21 AM EST [facility] Device ID [id number] 05/16/2025 8:21 AM EST [facility] Specimen Type POC Capillary 05/16/2025 8:21 AM EST [facility] Blood Capillary blood specimen / Unknown 05/16/2025 8:17 AM EST 05/16/2025 8:21 AM EST us Selin Lee MD LAB POINT OF CARE TE ST DOCKED DEVICE UNSOLICITED RESULTS Final Result Performing Organization Address City/[facility] Co de Phone Number [facility] [address] [place] [address] * (ABNORMAL) CBC and Differential (05/16/2025 4:08 AM EST) [facility] WBC Count 7.97 3.70 - 10.30 10*3/uL LAB HEMATOLOGY METHOD 05/16/2025 4:26 AM EST [facility] RBC Count 4.27(L) 4.60 - 6.10 10*6/uL LAB HEMATOLOGY METHOD 05/16/2025 4:[address] [facility] HGB 9.5(L) 13.7 - 17.5 g/dL LAB HEMATOLOGY METHOD 05/16/2025 4:[address] [facility] HCT 31.6(L) 40.0 - 51.0 % LAB HEMATOLOGY METHOD 05/16/2025 4:26 AM EST [facility] Platelet Count 264 155 - 369 10*3/uL LAB HEMATOLOGY METHOD 05/16/2025 4:[address] [facility] MCV 74(L) 79 - 98 fL LAB HEMATOLOGY METHOD 05/16/2025 4:[address] [facility] MCH 22.2(L) 26.0 - 32.0 pg LAB HEMATOLOGY METHOD 05/16/2025 4:[address] [facility] MCHC 30.1(L) 30.7 - 35.5 g/dL LAB HEMATOLOGY METHOD 05/16/2025 4:[address] [facility] RDW 17.9(H) 11.5 - 14.5 % LAB HEMATOLOGY METHOD 05/16/2025 4:[address] [facility] MPV 9.2 8.8 - 12.5 fL LAB HEMATOLOGY METHOD 05/16/2025 4:[address] [facility] nRBC 0.0 <=0.0 per 100 WBCs LAB HEMATOLOGY METHOD 05/16/2025 4:[address] [facility] Differential Type Automated LAB HEMATOLOGY METHOD 05/16/2025 4:[address] [facility] Neutrophils % 67 % LAB HEMATOLOGY METHOD 05/16/2025 4:[address] [facility] Lymphocytes % 16 % LAB HEMATOLOGY METHOD 05/16/2025 4:[address] [facility] Monocytes % 12 % LAB HEMATOLOGY METHOD 05/16/2025 4:[address] [facility] Eosinophils % 3 % LAB HEMATOLOGY METHOD 05/16/2025 4:[address] [facility] Basophils % 1 % LAB HEMATOLOGY METHOD 05/16/2025 4:[address] [facility] Immature Granulocytes % 1 % LAB HEMATOLOGY METHOD 05/16/2025 4:26 AM EST [facility] Neutrophils Absolute 5.39 1.60 - 6.10 10*3/uL LAB HEMATOLOGY METHOD 05/16/2025 4:26 AM EST [facility] Lymphocytes Absolute 1.30 1.20 - 3.90 10*3/uL LAB HEMATOLOGY METHOD 05/16/2025 4:26 AM EST [facility] Monocytes Absolute 0.93(H) 0.30 - 0.90 10*3/uL LAB HEMATOLOGY METHOD 05/16/2025 4:26 AM EST [facility] Eosinophils Absolute 0.26 0.00 - 0.50 10*3/uL LAB HEMATOLOGY METHOD 05/16/2025 4:26 AM EST [facility] Basophils Absolute 0.05 0.00 - 0.10 10*3/uL LAB HEMATOLOGY METHOD 05/16/2025 4:26 AM EST [facility] Immature Granulocytes Absolute 0.04 0.00 - 0.06 10*3/uL LAB HEMATOLOGY METHOD 05/16/2025 4:26 AM EST [facility] Blood Venous blood specimen / Unknown Venipuncture / Unknown 05/16/2025 4:08 AM EST 05/16/2025 4:17 AM EST Narrative [facility] - 05/16/2025 4:26 AM EST Therapeutic decision making should be based on absolute values, rather than percentages. us Selin Lee MD LAB BLOOD ORDERABLES Final Re sult [facility] [address] [place] [address] * (ABNORMAL) Magnesium, Plasma (05/16/2025 4:08 AM EST) Magnesium, Plasma 1.8(L) 1.9 - 2.4 mg/dL 05/16/2025 4:48 AM EST [facility] Blood Venous blood specimen / Unknown Venipuncture / Unknown 05/16/2025 4:08 AM EST 05/16/2025 4:16 AM EST us Selin Lee MD LAB BLOOD ORDERABLES Final Re sult Performing Organization Address [facility]/ZIP Co de Phone Number [facility] [address] [place] [address] * (ABNORMAL) Basic Metabolic Panel, Plasma (05/16/2025 4:08 AM EST) Glucose, Plasma 168(H) 74 - 99 mg/dL 05/16/2025 4:48 AM EST [facility] BUN, Plasma 19 7 - 21 mg/dL 05/16/2025 4:48 AM EST [facility] Creatinine, Plasma 0.86 0.70 - 1.20 mg/dL 05/16/2025 4:48 AM EST [facility] BUN/Creatinine Ratio 22 05/16/2025 4:48 AM EST [facility] Sodium, Plasma 131(L) 136 - 145 mmol/L 05/16/2025 4:48 AM EST [facility] Potassium, Plasma 3.6 3.6 - 4.9 mmol/L 05/16/2025 4:48 AM EST [facility] Chloride, Plasma 88(L) 97 - 107 mmol/L 05/16/2025 4:48 AM EST [facility] CO2, Plasma 34(H) 22 - 29 mmol/L 05/16/2025 4:48 AM EST [facility] Anion Gap 9 6 - 16 mmol/L 05/16/2025 4:48 AM EST [facility] Total Calcium, Plasma 9.3 8.9 - 10.2 mg/dL 05/16/2025 4:48 AM EST [facility] eGFRcr 107.5 mL/min/1.7 3m*2 05/16/2025 4:48 AM EST [facility] Comment:Reported eGFRcr in m L/min/1.73m2 is based the CKD-EPI 2020 equation that does not use a race coefficient. Blood Venous blood specimen / Unknown Venipuncture / Unknown 05/16/2025 4:08 AM EST 05/16/2025 4:16 AM EST us Selin Lee MD LAB BLOOD ORDERABLES Final Re sult [facility] [address] [place] [address] * Phosphorus, Plasma (05/16/2025 4:08 AM EST) Phosphorus, Plasma 3.7 2.5 - 4.5 mg/dL 05/16/2025 4:48 AM EST [facility] Blood Venous blood specimen / Unknown Venipuncture / Unknown 05/16/2025 4:08 AM EST 05/16/2025 4:16 AM EST us Selin Lee MD LAB BLOOD ORDERABLES Final Re sult Performing Organization Address [facility] Co de Phone Number [facility] [address] [place] [address] * (ABNORMAL) POCT glucose meter (05/15/2025 8:00 PM EST) [facility] POCT Glucose 190(H) 74 - 99 mg/dL 05/15/2025 8:02 PM EST [facility] Comment:Accuracy of a glucos e result obtained from a capillary whole blood specimen relies upon adequate, non-compromised capillary blood flow. If the capillary glucose result is not consistent with the patient's clinical signs and symptoms, glucose testing should be repeated with either an arterial or venous sample on the glucometer or sent to the main labortory for testing. Comment 05/15/2025 8:02 PM EST [facility] Liquefier ID [email or web address] salcedo 8:02 PM EST [facility] Device ID [id number] 05/15/2025 8:02 PM EST [facility] Specimen Type POC Capillary 05/15/2025 8:02 PM EST [facility] Blood Capillary blood specimen / Unknown 05/15/2025 8:00 PM EST 05/15/2025 8:02 PM EST us Selin Lee MD LAB POINT OF CARE TE ST DOCKED DEVICE UNSOLICITED RESULTS Final Result Performing Organization Address City/[facility]/ZIP Co de Phone Number [facility] [address] [place] [address] * (ABNORMAL) POCT glucose meter (05/15/2025 4:52 PM EST) [facility] POCT Glucose 270(H) 74 - 99 mg/dL 05/15/2025 4:53 PM EST [facility] Comment:Accuracy of a glucos e result obtained from a capillary whole blood specimen relies upon adequate, non-compromised capillary blood flow. If the capillary glucose result is not consistent with the patient's clinical signs and symptoms, glucose testing should be repeated with either an arterial or venous sample on the glucometer or sent to the main labortory for testing. Comment 05/15/2025 4:53 PM EST [facility] Liquefier ID Char Hinojosa 05/15/2025 4:53 PM EST [facility] Device ID [id number] 05/15/2025 4:53 PM EST [facility] Specimen Type POC Capillary 05/15/2025 4:53 PM EST [facility] Blood Capillary blood specimen / Unknown 05/15/2025 4:52 PM EST 05/15/2025 4:53 PM EST Selin Lee MD LAB POINT OF CARE TE ST DOCKED DEVICE UNSOLICITED RESULTS Final Result Performing Organization Address City/State/[facility] Co de Phone Number [facility] [address] [place] [address] * (ABNORMAL) POCT glucose meter (05/15/2025 12:46 PM EST) [facility] POCT Glucose 233(H) 74 - 99 mg/dL 05/15/2025 12:48 PM EST [facility] Comment:Accuracy of a glucos e result obtained from a capillary whole blood specimen relies upon adequate, non-compromised capillary blood flow. If the capillary glucose result is not consistent with the patient's clinical signs and symptoms, glucose testing should be repeated with either an arterial or venous sample on the glucometer or sent to the main labortory for testing. Comment 05/15/2025 12:48 PM EST [facility] Liquefier ID Santy Garcia 05/15/2025 12:48 PM EST [facility] Device ID [id number] 05/15/2025 12:48 PM EST [facility] Specimen Type POC Capillary 05/15/2025 12:48 PM EST [facility] Blood Capillary blood specimen / Unknown 05/15/2025 12:46 PM EST 05/15/2025 12:48 PM EST us Selin Lee MD LAB POINT OF CARE TE ST DOCKED DEVICE UNSOLICITED RESULTS Final Result Performing Organization Address [facility] de Phone Number [facility] [address] [place] [address] * (ABNORMAL) POCT glucose meter (05/15/2025 11:31 AM EST) POCT Glucose 235(H) 74 - 99 mg/dL 05/15/2025 11:33 AM EST [facility] Comment:Accuracy of a glucos e result obtained from a capillary whole blood specimen relies upon adequate, non-compromised capillary blood flow. If the capillary glucose result is not consistent with the patient's clinical signs and symptoms, glucose testing should be repeated with either an arterial or venous sample on the glucometer or sent to the main labortory for testing. Comment 05/15/2025 11:33 AM EST [facility] Liquefier ID Char Hinojosa 05/15/2025 11:33 AM EST [facility] Device ID [id number] 05/15/2025 11:33 AM EST [facility] Specimen Type POC Capillary 05/15/2025 11:33 AM EST [facility] Blood Capillary blood specimen / Unknown 05/15/2025 11:31 AM EST 05/15/2025 11:33 AM EST us Selin Lee MD LAB POINT OF CARE TE ST DOCKED DEVICE UNSOLICITED RESULTS Final Result Performing Organization Address [facility] Co de Phone Number [facility] [address] [place] [address] * (ABNORMAL) POCT glucose meter (05/15/2025 8:12 AM EST) POCT Glucose 175(H) 74 - 99 mg/dL 05/15/2025 8:14 AM EST [facility] Comment:Accuracy of a glucos e result obtained from a capillary whole blood specimen relies upon adequate, non-compromised capillary blood flow. If the capillary glucose result is not consistent with the patient's clinical signs and symptoms, glucose testing should be repeated with either an arterial or venous sample on the glucometer or sent to the main labortory for testing. Comment 05/15/2025 8:14 AM EST [facility] Liquefier ID Char Hinojosa 05/15/2025 8:14 AM EST [facility] Device ID [id number] 05/15/2025 8:14 AM EST [facility] Specimen Type POC Capillary 05/15/2025 8:14 AM EST [facility] Blood Capillary blood specimen / Unknown 05/15/2025 8:12 AM EST 05/15/2025 8:14 AM EST us Selin Lee MD LAB POINT OF CARE TE ST DOCKED DEVICE UNSOLICITED RESULTS Final Result [facility] [address] [place] [address] * (ABNORMAL) CBC and Differential (05/15/2025 2:24 AM EST) WBC Count 8.81 3.70 - 10.30 10*3/uL LAB HEMATOLOGY METHOD 05/15/2025 2:41 AM EST [facility] RBC Count 4.49(L) 4.60 - 6.10 10*6/uL LAB HEMATOLOGY METHOD 05/15/2025 2:41 AM EST [facility] HGB 9.9(L) 13.7 - 17.5 g/dL LAB HEMATOLOGY METHOD 05/15/2025 2:41 AM EST [facility] HCT 33.3(L) 40.0 - 51.0 % LAB HEMATOLOGY METHOD 05/15/2025 2:41 AM EST [facility] Platelet Count 286 155 - 369 10*3/uL LAB HEMATOLOGY METHOD 05/15/2025 2:41 AM EST [facility] MCV 74(L) 79 - 98 fL LAB HEMATOLOGY METHOD 05/15/2025 2:41 AM EST [facility] MCH 22.0(L) 26.0 - 32.0 pg LAB HEMATOLOGY METHOD 05/15/2025 2:41 AM EST [facility] MCHC 29.7(L) 30.7 - 35.5 g/dL LAB HEMATOLOGY METHOD 05/15/2025 2:[address] [facility] RDW 17.8(H) 11.5 - 14.5 % LAB HEMATOLOGY METHOD 05/15/2025 2:[address] [facility] MPV 9.4 8.8 - 12.5 fL LAB HEMATOLOGY METHOD 05/15/2025 2:[address] [facility] nRBC 0.0 <=0.0 per 100 WBCs LAB HEMATOLOGY METHOD 05/15/2025 2:[address] [facility] Differential Type Automated LAB HEMATOLOGY METHOD 05/15/2025 2:[address] [facility] Neutrophils % 71 % LAB HEMATOLOGY METHOD 05/15/2025 2:[address] [facility] Lymphocytes % 14 % LAB HEMATOLOGY METHOD 05/15/2025 2:[address] [facility] Monocytes % 11 % LAB HEMATOLOGY METHOD 05/15/2025 2:[address] [facility] Eosinophils % 3 % LAB HEMATOLOGY METHOD 05/15/2025 2:[address] [facility] Basophils % 1 % LAB HEMATOLOGY METHOD 05/15/2025 2:[address] [facility] Immature Granulocytes % 0 % LAB HEMATOLOGY METHOD 05/15/2025 2:[address] [facility] Neutrophils Absolute 6.25(H) 1.60 - 6.10 10*3/uL LAB HEMATOLOGY METHOD 05/15/2025 2:[address] [facility] Lymphocytes Absolute 1.27 1.20 - 3.90 10*3/uL LAB HEMATOLOGY METHOD 05/15/2025 2:[address] [facility] Monocytes Absolute 0.95(H) 0.30 - 0.90 10*3/uL LAB HEMATOLOGY METHOD 05/15/2025 2:[address] [facility] Eosinophils Absolute 0.27 0.00 - 0.50 10*3/uL LAB HEMATOLOGY METHOD 05/15/2025 2:[address] [facility] Basophils Absolute 0.04 0.00 - 0.10 10*3/uL LAB HEMATOLOGY METHOD 05/15/2025 2:[address] [facility] Immature Granulocytes Absolute 0.03 0.00 - 0.06 10*3/uL LAB HEMATOLOGY METHOD 05/15/2025 2:[address] [facility] Blood Venous blood specimen / Unknown Venipuncture / Unknown 05/15/2025 2:24 AM EST 05/15/2025 2:33 AM EST Narrative [facility] - 05/15/2025 2:41 AM EST Therapeutic decision making should be based on absolute values, rather than percentages. us Selin Lee MD LAB BLOOD ORDERABLES Final Re sult Performing Organization Address [facility]/ZIP Co de Phone Number [facility] [address] [place] [address] * (ABNORMAL) Magnesium, Plasma (05/15/2025 2:24 AM EST) Magnesium, Plasma 1.8(L) 1.9 - 2.4 mg/dL 05/15/2025 3:03 AM EST [facility] Blood Venous blood specimen / Unknown Venipuncture / Unknown 05/15/2025 2:24 AM EST 05/15/2025 2:32 AM EST us Selin Lee MD LAB BLOOD ORDERABLES Final Re sult Performing Organization Address City/[facility]/ZIP Co de Phone Number [facility] [address] [place] [address] * (ABNORMAL) Basic Metabolic Panel, Plasma (05/15/2025 2:24 AM EST) Glucose, Plasma 162(H) 74 - 99 mg/dL 05/15/2025 3:03 AM EST [facility] BUN, Plasma 15 7 - 21 mg/dL 05/15/2025 3:03 AM EST [facility] Creatinine, Plasma 0.91 0.70 - 1.20 mg/dL 05/15/2025 3:03 AM EST [facility] BUN/Creatinine Ratio 16 05/15/2025 3:03 AM EST [facility] Sodium, Plasma 133(L) 136 - 145 mmol/L 05/15/2025 3:03 AM EST [facility] Potassium, Plasma 3.3(L) 3.6 - 4.9 mmol/L 05/15/2025 3:03 AM EST [facility] Chloride, Plasma 87(L) 97 - 107 mmol/L 05/15/2025 3:03 AM EST [facility] CO2, Plasma 37(H) 22 - 29 mmol/L 05/15/2025 3:03 AM EST [facility] Anion Gap 9 6 - 16 mmol/L 05/15/2025 3:03 AM EST [facility] Total Calcium, Plasma 9.2 8.9 - 10.2 mg/dL 05/15/2025 3:03 AM EST [facility] eGFRcr 104.6 mL/min/1.7 3m*2 05/15/2025 3:03 AM EST [facility] Comment:Reported eGFRcr in m L/min/1.73m2 is based the CKD-EPI 2020 equation that does not use a race coefficient. Blood Venous blood specimen / Unknown Venipuncture / Unknown 05/15/2025 2:24 AM EST 05/15/2025 2:32 AM EST us Selin Lee MD LAB BLOOD ORDERABLES Final Re sult Performing Organization Address City/[facility]/ZIP Co de Phone Number [facility] [address] [place] [address] * Phosphorus, Plasma (05/15/2025 2:24 AM EST) Phosphorus, Plasma 3.7 2.5 - 4.5 mg/dL 05/15/2025 3:03 AM EST [facility] Blood Venous blood specimen / Unknown Venipuncture / Unknown 05/15/2025 2:24 AM EST 05/15/2025 2:32 AM EST us Selin Lee MD LAB BLOOD ORDERABLES Final Re sult Performing Organization Address City/[facility]/ZIP Co de Phone Number [facility] [address] [place] [address] * (ABNORMAL) POCT glucose meter (05/14/2025 8:09 PM EST) POCT Glucose 194(H) 74 - 99 mg/dL 05/14/2025 8:11 PM EST [facility] Comment:Accuracy of a glucos e result obtained from a capillary whole blood specimen relies upon adequate, non-compromised capillary blood flow. If the capillary glucose result is not consistent with the patient's clinical signs and symptoms, glucose testing should be repeated with either an arterial or venous sample on the glucometer or sent to the main labortory for testing. Comment 05/14/2025 8:11 PM EST [facility] Liquefier ID Stella Coleman 05/14/20 8:11 PM EST [facility] Device ID [id number] 05/14/2025 8:11 PM EST [facility] Specimen Type POC Capillary 05/14/2025 8:11 PM EST [facility] Blood Capillary blood specimen / Unknown 05/14/2025 8:09 PM EST 05/14/2025 8:11 PM EST us Selin Lee MD LAB POINT OF CARE TE ST DOCKED DEVICE UNSOLICITED RESULTS Final Result Performing Organization Address City/State/[facility] Co de Phone Number [facility] [address] [place] [address] * (ABNORMAL) POCT glucose meter (05/14/2025 5:10 PM EST) [facility] Signature POCT Glucose 320(H) 74 - 99 mg/dL 05/14/2025 5:13 PM EST [facility] Comment:Accuracy of a glucos e result obtained from a capillary whole blood specimen relies upon adequate, non-compromised capillary blood flow. If the capillary glucose result is not consistent with the patient's clinical signs and symptoms, glucose testing should be repeated with either an arterial or venous sample on the glucometer or sent to the main labortory for testing. Comment 05/14/2025 5:13 PM EST [facility] Liquefier ID Dunia Montgomery 05/14/2025 5:13 PM EST [facility] Device ID [id number] 05/14/2025 5:13 PM EST [facility] Specimen Type POC Capillary 05/14/2025 5:13 PM EST [facility] Blood Capillary blood specimen / Unknown 05/14/2025 5:10 PM EST 05/14/2025 5:13 PM EST us Selin Lee MD LAB POINT OF CARE TE ST DOCKED DEVICE UNSOLICITED RESULTS Final Result Performing Organization Address City/[facility]/ZIP Co de Phone Number [facility] [address] [place] [address] * (ABNORMAL) POCT glucose meter (05/14/2025 12:15 PM EST) POCT Glucose 260(H) 74 - 99 mg/dL 05/14/2025 4:51 PM EST [facility] Comment:Accuracy of a glucos e result obtained from a capillary whole blood specimen relies upon adequate, non-compromised capillary blood flow. If the capillary glucose result is not consistent with the patient's clinical signs and symptoms, glucose testing should be repeated with either an arterial or venous sample on the glucometer or sent to the main labortory for testing. Comment 05/14/2025 4:51 PM EST [facility] Liquefier ID Dunia Montgomery 05/14/2025 4:51 PM EST [facility] Device ID [id number] 05/14/2025 4:51 PM EST [facility] Specimen Type POC Capillary 05/14/2025 4:51 PM EST [facility] Blood Capillary blood specimen / Unknown 05/14/2025 12:15 PM EST 05/14/2025 4:51 PM EST us Selin Lee MD LAB POINT OF CARE TE ST DOCKED DEVICE UNSOLICITED RESULTS Final Result Performing Organization Address City/[facility] Co de Phone Number [facility] [address] [place] [address] * (ABNORMAL) POCT glucose meter (05/14/2025 8:30 AM EST) POCT Glucose 321(H) 74 - 99 mg/dL 05/14/2025 8:33 AM EST [facility] Comment:Accuracy of a glucos e result obtained from a capillary whole blood specimen relies upon adequate, non-compromised capillary blood flow. If the capillary glucose result is not consistent with the patient's clinical signs and symptoms, glucose testing should be repeated with either an arterial or venous sample on the glucometer or sent to the main labortory for testing. Comment 05/14/2025 8:33 AM EST [facility] Liquefier ID Dunia Montgomery 05/14/2025 8:33 AM EST [facility] Device ID [id number] 05/14/2025 8:33 AM EST [facility] Specimen Type POC Capillary 05/14/2025 8:33 AM EST [facility] Blood Capillary blood specimen / Unknown 05/14/2025 8:30 AM EST 05/14/2025 8:33 AM EST us Selin Lee MD LAB POINT OF CARE TE ST DOCKED DEVICE UNSOLICITED RESULTS Final Result [facility] [address] [place] [id number] * (ABNORMAL) CBC and Differential (05/14/2025 1:45 AM EDT) WBC Count 7.88 3.70 - 10.30 10*3/uL LAB HEMATOLOGY METHOD 05/14/2025 2:47 AM EST [facility] RBC Count 4.25(L) 4.60 - 6.10 10*6/uL LAB HEMATOLOGY METHOD 05/14/2025 2:47 AM EST [facility] HGB 9.7(L) 13.7 - 17.5 g/dL LAB HEMATOLOGY METHOD 05/14/2025 2:47 AM EST [facility] HCT 31.7(L) 40.0 - 51.0 % LAB HEMATOLOGY METHOD 05/14/2025 2:47 AM EST [facility] Platelet Count 273 155 - 369 10*3/uL LAB HEMATOLOGY METHOD 05/14/2025 2:47 AM EST [facility] MCV 75(L) 79 - 98 fL LAB HEMATOLOGY METHOD 05/14/2025 2:47 AM EST [facility] MCH 22.8(L) 26.0 - 32.0 pg LAB HEMATOLOGY METHOD 05/14/2025 2:47 AM EST [facility] MCHC 30.6(L) 30.7 - 35.5 g/dL LAB HEMATOLOGY METHOD 05/14/2025 2:47 AM EST [facility] RDW 17.9(H) 11.5 - 14.5 % LAB HEMATOLOGY METHOD 05/14/2025 2:[address] [facility] MPV 9.6 8.8 - 12.5 fL LAB HEMATOLOGY METHOD 05/14/2025 2:[address] [facility] nRBC 0.0 <=0.0 per 100 WBCs LAB HEMATOLOGY METHOD 05/14/2025 2:[address] [facility] Differential Type Automated LAB HEMATOLOGY METHOD 05/14/2025 2:[address] [facility] Neutrophils % 66 % LAB HEMATOLOGY METHOD 05/14/2025 2:[address] [facility] Lymphocytes % 18 % LAB HEMATOLOGY METHOD 05/14/2025 2:[address] [facility] Monocytes % 11 % LAB HEMATOLOGY METHOD 05/14/2025 2:[address] [facility] Eosinophils % 4 % LAB HEMATOLOGY METHOD 05/14/2025 2:[address] [facility] Basophils % 1 % LAB HEMATOLOGY METHOD 05/14/2025 2:[address] [facility] Immature Granulocytes % 0 % LAB HEMATOLOGY METHOD 05/14/2025 2:[address] [facility] Neutrophils Absolute 5.20 1.60 - 6.10 10*3/uL LAB HEMATOLOGY METHOD 05/14/2025 2:[address] [facility] Lymphocytes Absolute 1.44 1.20 - 3.90 10*3/uL LAB HEMATOLOGY METHOD 05/14/2025 2:[address] [facility] Monocytes Absolute 0.85 0.30 - 0.90 10*3/uL LAB HEMATOLOGY METHOD 05/14/2025 2:[address] [facility] Eosinophils Absolute 0.30 0.00 - 0.50 10*3/uL LAB HEMATOLOGY METHOD 05/14/2025 2:[address] [facility] Basophils Absolute 0.06 0.00 - 0.10 10*3/uL LAB HEMATOLOGY METHOD 05/14/2025 2:[address] [facility] Immature Granulocytes Absolute 0.03 0.00 - 0.06 10*3/uL LAB HEMATOLOGY METHOD 05/14/2025 2:[address] [facility] Blood Venous blood specimen / Unknown Venipuncture / Unknown 05/14/2025 1:45 AM EDT 05/14/2025 2:24 AM EST [facility] - 05/14/2025 2:47 AM EST Therapeutic decision making should be based on absolute values, rather than percentages. us Selin Lee MD LAB BLOOD ORDERABLES Final Re sult Performing Organization Address [facility] Co de Phone Number [facility] [address] [place] [address] * (ABNORMAL) Magnesium, Plasma (05/14/2025 1:45 AM EDT) Magnesium, Plasma 1.7(L) 1.9 - 2.4 mg/dL 05/14/2025 2:58 AM EST [facility] Blood Venous blood specimen / Unknown Venipuncture / Unknown 05/14/2025 1:45 AM EDT 05/14/2025 2:25 AM EST us Selin Lee MD LAB BLOOD ORDERABLES Final Re sult Performing Organization Address [facility] Co de Phone Number [facility] [address] [place] [address] * (ABNORMAL) Basic Metabolic Panel, Plasma (05/14/2025 1:45 AM EDT) Glucose, Plasma 282(H) 74 - 99 mg/dL 05/14/2025 2:58 AM EST [facility] BUN, Plasma 16 7 - 21 mg/dL 05/14/2025 2:58 AM EST [facility] Creatinine, Plasma 0.85 0.70 - 1.20 mg/dL 05/14/2025 2:58 AM EST [facility] BUN/Creatinine Ratio 19 05/14/2025 2:58 AM EST [facility] Sodium, Plasma 132(L) 136 - 145 mmol/L 05/14/2025 2:58 AM EST [facility] Potassium, Plasma 3.5(L) 3.6 - 4.9 mmol/L 05/14/2025 2:58 AM EST [facility] Chloride, Plasma 87(L) 97 - 107 mmol/L 05/14/2025 2:58 AM EST [facility] CO2, Plasma 34(H) 22 - 29 mmol/L 05/14/2025 2:58 AM EST [facility] Anion Gap 11 6 - 16 mmol/L 05/14/2025 2:58 AM EST [facility] Total Calcium, Plasma 9.2 8.9 - 10.2 mg/dL 05/14/2025 2:58 AM EST [facility] eGFRcr 107.9 mL/min/1.7 3m*2 05/14/2025 2:58 AM EST [facility] Comment:Reported eGFRcr in m L/min/1.73m2 is based the CKD-EPI 2020 equation that does not use a race coefficient. Blood Venous blood specimen / Unknown Venipuncture / Unknown 05/14/2025 1:45 AM EDT 05/14/2025 2:25 AM EST us Selin Lee MD LAB BLOOD ORDERABLES Final Re sult Performing Organization Address [facility]/ZIP Co de Phone Number [facility] [address] [place] [address] * Phosphorus, Plasma (05/14/2025 1:45 AM EDT) Phosphorus, Plasma 3.3 2.5 - 4.5 mg/dL 05/14/2025 2:58 AM EST [facility] Blood Venous blood specimen / Unknown Venipuncture / Unknown 05/14/2025 1:45 AM EDT 05/14/2025 2:25 AM EST us Selin Lee MD LAB BLOOD ORDERABLES Final Re sult [facility] [address] [place] [address] * (ABNORMAL) POCT glucose meter (05/13/2025 4:58 PM EDT) POCT Glucose 217(H) 74 - 99 mg/dL 05/13/2025 5:00 PM EDT [facility] Comment:Accuracy of a glucos e result obtained from a capillary whole blood specimen relies upon adequate, non-compromised capillary blood flow. If the capillary glucose result is not consistent with the patient's clinical signs and symptoms, glucose testing should be repeated with either an arterial or venous sample on the glucometer or sent to the main labortory for testing. Comment 05/13/2025 5:00 PM EDT [facility] Liquefier ID Priyanka Negrete 05/13/20 5:00 PM EDT [facility] Device ID [id number] 05/13/2025 5:00 PM EDT [facility] Specimen Type POC Capillary 05/13/2025 5:00 PM EDT [facility] Blood Capillary blood specimen / Unknown 05/13/2025 4:58 PM EDT 05/13/2025 5:00 PM EDT us Selin Lee MD LAB POINT OF CARE TE ST DOCKED DEVICE UNSOLICITED RESULTS Final Result Performing Organization Address City/State/[facility] Phone Number [facility] [address] [place] [address] * (ABNORMAL) POCT glucose meter (05/13/2025 11:37 AM EDT) [facility] POCT Glucose 255(H) 74 - 99 mg/dL 05/13/2025 11:41 AM EDT [facility] Comment:Accuracy of [...] to the main labortory for testing. Comment 05/13/2025 11:41 AM EDT [facility] Liquefier ID Priyanka Negrete 05/13/20 11:41 AM EDT [facility] Device ID [id number] 05/13/2025 11:41 AM EDT [facility] Specimen Type POC Capillary 05/13/2025 11:41 AM EDT [facility] Blood Capillary blood specimen / Unknown 05/13/2025 11:37 AM EDT 05/13/2025 11:41 AM EDT us Selin Lee MD LAB POINT OF CARE TE ST DOCKED DEVICE UNSOLICITED RESULTS Final Result [facility] [address] [place] [address] * (ABNORMAL) POCT glucose meter (05/13/2025 7:42 AM EDT) [facility] POCT Glucose 233(H) 74 - 99 mg/dL 05/13/2025 7:45 AM EDT [facility] Comment:Accuracy of [...] to the main labortory for testing. Comment 05/13/2025 7:45 AM EDT [facility] Liquefier ID Priyanka Negrete 05/13/20 7:45 AM EDT [facility] Device ID [id number] 05/13/2025 7:45 AM EDT [facility] Specimen Type POC Capillary 05/13/2025 7:45 AM EDT [facility] Blood Capillary blood specimen / Unknown 05/13/2025 7:42 AM EDT 05/13/2025 7:45 AM EDT Selin Lee MD LAB POINT OF CARE TE ST DOCKED DEVICE UNSOLICITED RESULTS Final Result [facility] [address] [place] [address] * (ABNORMAL) CBC and Differential (05/13/2025 3:54 AM EDT) [facility] WBC Count 7.92 3.70 - 10.30 10*3/uL LAB HEMATOLOGY METHOD 05/13/2025 4:11 AM EDT [facility] RBC Count 4.40(L) 4.60 - 6.10 10*6/uL LAB HEMATOLOGY METHOD 05/13/2025 4:11 AM EDT [facility] HGB 9.9(L) 13.7 - 17.5 g/dL LAB HEMATOLOGY METHOD 05/13/2025 4:11 AM EDT [facility] HCT 33.0(L) 40.0 - 51.0 % LAB HEMATOLOGY METHOD 05/13/2025 4:11 AM EDT [facility] Platelet Count 276 155 - 369 10*3/uL LAB HEMATOLOGY METHOD 05/13/2025 4:11 AM EDT [facility] MCV 75(L) 79 - 98 fL LAB HEMATOLOGY METHOD 05/13/2025 4:11 AM EDT [facility] MCH 22.5(L) 26.0 - 32.0 pg LAB HEMATOLOGY METHOD 05/13/2025 4:11 AM EDT [facility] MCHC 30.0(L) 30.7 - 35.5 g/dL LAB HEMATOLOGY METHOD 05/13/2025 4:11 AM EDT [facility] RDW 17.8(H) 11.5 - 14.5 % LAB HEMATOLOGY METHOD 05/13/2025 4:11 AM EDT [facility] MPV 9.3 8.8 - 12.5 fL LAB HEMATOLOGY METHOD 05/13/2025 4:11 AM EDT [facility] nRBC 0.0 <=0.0 per 100 WBCs LAB HEMATOLOGY METHOD 05/13/2025 4:11 AM EDT [facility] Differential Type Automated LAB HEMATOLOGY METHOD 05/13/2025 4:11 AM EDT [facility] Neutrophils % 69 % LAB HEMATOLOGY METHOD 05/13/2025 4:11 AM EDT [facility] Lymphocytes % 17 % LAB HEMATOLOGY METHOD 05/13/2025 4:11 AM EDT [facility] Monocytes % 10 % LAB HEMATOLOGY METHOD 05/13/2025 4:11 AM EDT [facility] Eosinophils % 3 % LAB HEMATOLOGY METHOD 05/13/2025 4:11 AM EDT [facility] Basophils % 1 % LAB HEMATOLOGY METHOD 05/13/2025 4:11 AM EDT [facility] Immature Granulocytes % 0 % LAB HEMATOLOGY METHOD 05/13/2025 4:11 AM EDT [facility] Neutrophils Absolute 5.47 1.60 - 6.10 10*3/uL LAB HEMATOLOGY METHOD 05/13/2025 4:11 AM EDT [facility] Lymphocytes Absolute 1.33 1.20 - 3.90 10*3/uL LAB HEMATOLOGY METHOD 05/13/2025 4:11 AM EDT [facility] Monocytes Absolute 0.78 0.30 - 0.90 10*3/uL LAB HEMATOLOGY METHOD 05/13/2025 4:11 AM EDT [facility] Eosinophils Absolute 0.27 0.00 - 0.50 10*3/uL LAB HEMATOLOGY METHOD 05/13/2025 4:11 AM EDT [facility] Basophils Absolute 0.04 0.00 - 0.10 10*3/uL LAB HEMATOLOGY METHOD 05/13/2025 4:11 AM EDT [facility] Immature Granulocytes Absolute 0.03 0.00 - 0.06 10*3/uL LAB HEMATOLOGY METHOD 05/13/2025 4:11 AM EDT [facility] Blood Venous blood specimen / Unknown Venipuncture / Unknown 05/13/2025 3:54 AM EDT 05/13/2025 4:01 AM EDT Narrative [facility] - 05/13/2025 4:11 AM EDT Therapeutic decision making should be based on absolute values, rather than percentages. us Selin Lee MD LAB BLOOD ORDERABLES Final Re sult Performing Organization Address City/[facility]/ZIP Co de Phone Number [facility] [address] [place] [address] * Magnesium, Plasma (05/13/2025 3:54 AM EDT) Magnesium, Plasma 1.9 1.9 - 2.4 mg/dL 05/13/2025 4:28 AM EDT [facility] Blood Venous blood specimen / Unknown Venipuncture / Unknown 05/13/2025 3:54 AM EDT 05/13/2025 4:01 AM EDT Selin Lee MD LAB BLOOD ORDERABLES Final Re sult [facility] [address] [place] [address] * (ABNORMAL) Basic Metabolic Panel, Plasma (05/13/2025 3:54 AM EDT) Glucose, Plasma 238(H) 74 - 99 mg/dL 05/13/2025 4:28 AM EDT [facility] BUN, Plasma 16 7 - 21 mg/dL 05/13/2025 4:28 AM EDT [facility] Creatinine, Plasma 0.96 0.70 - 1.20 mg/dL 05/13/2025 4:28 AM EDT [facility] BUN/Creatinine Ratio 17 05/13/2025 4:28 AM EDT [facility] Sodium, Plasma 131(L) 136 - 145 mmol/L 05/13/2025 4:28 AM EDT [facility] Potassium, Plasma 3.3(L) 3.6 - 4.9 mmol/L 05/13/2025 4:28 AM EDT [facility] Chloride, Plasma 87(L) 97 - 107 mmol/L 05/13/2025 4:28 AM EDT [facility] CO2, Plasma 37(H) 22 - 29 mmol/L 05/13/2025 4:28 AM EDT [facility] Anion Gap 7 6 - 16 mmol/L 05/13/2025 4:28 AM EDT [facility] Total Calcium, Plasma 9.1 8.9 - 10.2 mg/dL 05/13/2025 4:28 AM EDT [facility] eGFRcr 98.1 mL/min/1.7 3m*2 05/13/2025 4:28 AM EDT [facility] Comment:Reported eGFRcr in m L/min/1.73m2 is based the CKD-EPI 2020 equation that does not use a race coefficient. Blood Venous blood specimen / Unknown Venipuncture / Unknown 05/13/2025 3:54 AM EDT 05/13/2025 4:01 AM EDT us Selin Lee MD LAB BLOOD ORDERABLES Final Re sult [facility] [address] [place] [address] * Phosphorus, Plasma (05/13/2025 3:54 AM EDT) Phosphorus, Plasma 3.3 2.5 - 4.5 mg/dL 05/13/2025 4:28 AM EDT [facility] Blood Venous blood specimen / Unknown Venipuncture / Unknown 05/13/2025 3:54 AM EDT 05/13/2025 4:01 AM EDT Selin Lee MD LAB BLOOD ORDERABLES Final Re sult Performing Organization Address [facility] Co de Phone Number [facility] [address] [place] [address] * (ABNORMAL) POCT glucose meter (05/12/2025 7:40 PM EDT) POCT Glucose 248(H) 74 - 99 mg/dL 05/12/2025 7:42 PM EDT [facility] Comment:Accuracy of [...] to the main labortory for testing. Comment 05/12/2025 7:42 PM EDT [facility] Liquefier ID Stella Coleman 05/12/20 7:42 PM EDT [facility] Device ID [id number] 05/12/2025 7:42 PM EDT [facility] Specimen Type POC Capillary 05/12/2025 7:42 PM EDT [facility] Blood Capillary blood specimen / Unknown 05/12/2025 7:40 PM EDT 05/12/2025 7:42 PM EDT us Selin Lee MD LAB POINT OF CARE TE ST DOCKED DEVICE UNSOLICITED RESULTS Final Result Performing Organization Address City/[facility]/ZIP Co de Phone Number [facility] [address] [place] [address] * (ABNORMAL) POCT glucose meter (05/12/2025 4:36 PM EDT) POCT Glucose 235(H) 74 - 99 mg/dL 05/12/2025 4:38 PM EDT [facility] Comment:Accuracy of [...] to the main labortory for testing. Comment 05/12/2025 4:38 PM EDT [facility] Liquefier ID Char Hinojosa 05/12/2025 4:38 PM EDT [facility] LAB Device ID [id number] 05/12/2025 4:38 PM EDT [facility] Specimen Type POC Capillary 05/12/2025 4:38 PM EDT [facility] Blood Capillary blood specimen / Unknown 05/12/2025 4:36 PM EDT 05/12/2025 4:38 PM EDT us Selin Lee MD LAB POINT OF CARE TE ST DOCKED DEVICE UNSOLICITED RESULTS Final Result Performing Organization Address City/State/[facility] Co de Phone Number [facility] [address] [place] [address] * (ABNORMAL) POCT glucose meter (05/12/2025 11:30 AM EDT) POCT Glucose 315(H) 74 - 99 mg/dL 05/12/2025 11:32 AM EDT [facility] Comment:Accuracy of a glucos e result obtained from a capillary whole blood specimen relies upon adequate, non-compromised capillary blood flow. If the capillary glucose result is not consistent with the patient's clinical signs and symptoms, glucose testing should be repeated with either an arterial or venous sample on the glucometer or sent to the main labortory for testing. Comment 05/12/2025 11:32 AM EDT [facility] Liquefier ID Char Hinojosa 05/12/2025 11:32 AM EDT [facility] LAB Device ID [id number] 05/12/2025 11:32 AM EDT [facility] Specimen Type POC Capillary 05/12/2025 11:32 AM EDT [facility] Blood Capillary blood specimen / Unknown 05/12/2025 11:30 AM EDT 05/12/2025 11:32 AM EDT us Selin Lee MD LAB POINT OF CARE TE ST DOCKED DEVICE UNSOLICITED RESULTS Final Result Performing Organization Address City/[facility]/ZIP Co de Phone Number [facility] [address] [place] [address] * (ABNORMAL) POCT glucose meter (05/12/2025 8:08 AM EDT) [facility] POCT Glucose 274(H) 74 - 99 mg/dL 05/12/2025 8:10 AM EDT [facility] Comment:Accuracy of a glucos e result obtained from a capillary whole blood specimen relies upon adequate, non-compromised capillary blood flow. If the capillary glucose result is not consistent with the patient's clinical signs and symptoms, glucose testing should be repeated with either an arterial or venous sample on the glucometer or sent to the main labortory for testing. Comment 05/12/2025 8:10 AM EDT [facility] Liquefier ID Char Hinoojsa 05/12/2025 8:10 AM EDT [facility] Device ID [id number] 05/12/2025 8:10 AM EDT [facility] Specimen Type POC Capillary 05/12/2025 8:10 AM EDT [facility] Blood Capillary blood specimen / Unknown 05/12/2025 8:08 AM EDT 05/12/2025 8:10 AM EDT us Selin Lee MD LAB POINT OF CARE TE ST DOCKED DEVICE UNSOLICITED RESULTS Final Result Performing Organization Address City/[facility] Co de Phone Number [facility] [address] [place] [address] * (ABNORMAL) CBC and Differential (05/12/2025 3:56 AM EDT) [facility] WBC Count 7.24 3.70 - 10.30 10*3/uL LAB HEMATOLOGY METHOD 05/12/2025 4:15 AM EDT [facility] RBC Count 4.28(L) 4.60 - 6.10 10*6/uL LAB HEMATOLOGY METHOD 05/12/2025 4:15 AM EDT [facility] HGB 9.4(L) 13.7 - 17.5 g/dL LAB HEMATOLOGY METHOD 05/12/2025 4:15 AM EDT [facility] HCT 31.8(L) 40.0 - 51.0 % LAB HEMATOLOGY METHOD 05/12/2025 4:15 AM EDT [facility] Platelet Count 266 155 - 369 10*3/uL LAB HEMATOLOGY METHOD 05/12/2025 4:15 AM EDT [facility] MCV 74(L) 79 - 98 fL LAB HEMATOLOGY METHOD 05/12/2025 4:15 AM EDT [facility] MCH 22.0(L) 26.0 - 32.0 pg LAB HEMATOLOGY METHOD 05/12/2025 4:15 AM EDT [facility] MCHC 29.6(L) 30.7 - 35.5 g/dL LAB HEMATOLOGY METHOD 05/12/2025 4:15 AM EDT [facility] RDW 18.0(H) 11.5 - 14.5 % LAB HEMATOLOGY METHOD 05/12/2025 4:15 AM EDT [facility] MPV 9.6 8.8 - 12.5 fL LAB HEMATOLOGY METHOD 05/12/2025 4:15 AM EDT [facility] nRBC 0.0 <=0.0 per 100 WBCs LAB HEMATOLOGY METHOD 05/12/2025 4:15 AM EDT [facility] Differential Type Automated LAB HEMATOLOGY METHOD 05/12/2025 4:15 AM EDT [facility] Neutrophils % 71 % LAB HEMATOLOGY METHOD 05/12/2025 4:15 AM EDT [facility] Lymphocytes % 16 % LAB HEMATOLOGY METHOD 05/12/2025 4:15 AM EDT [facility] Monocytes % 9 % LAB HEMATOLOGY METHOD 05/12/2025 4:15 AM EDT [facility] Eosinophils % 3 % LAB HEMATOLOGY METHOD 05/12/2025 4:15 AM EDT [facility] Basophils % 1 % LAB HEMATOLOGY METHOD 05/12/2025 4:15 AM EDT [facility] Immature Granulocytes % 0 % LAB HEMATOLOGY METHOD 05/12/2025 4:15 AM EDT [facility] Neutrophils Absolute 5.14 1.60 - 6.10 10*3/uL LAB HEMATOLOGY METHOD 05/12/2025 4:15 AM EDT [facility] Lymphocytes Absolute 1.15(L) 1.20 - 3.90 10*3/uL LAB HEMATOLOGY METHOD 05/12/2025 4:15 AM EDT [facility] Monocytes Absolute 0.66 0.30 - 0.90 10*3/uL LAB HEMATOLOGY METHOD 05/12/2025 4:15 AM EDT [facility] Eosinophils Absolute 0.22 0.00 - 0.50 10*3/uL LAB HEMATOLOGY METHOD 05/12/2025 4:15 AM EDT [facility] Basophils Absolute 0.05 0.00 - 0.10 10*3/uL LAB HEMATOLOGY METHOD 05/12/2025 4:15 AM EDT [facility] Immature Granulocytes Absolute 0.02 0.00 - 0.06 10*3/uL LAB HEMATOLOGY METHOD 05/12/2025 4:15 AM EDT [facility] Blood Venous blood specimen / Unknown Venipuncture / Unknown 05/12/2025 3:56 AM EDT 05/12/2025 4:03 AM EDT Narrative [facility] - 05/12/2025 4:15 AM EDT Therapeutic decision making should be based on absolute values, rather than percentages. us Selin Lee MD LAB BLOOD ORDERABLES Final Re sult Performing Organization Address City/[facility]/ZIP Co de Phone Number [facility] [address] [place] [address] * (ABNORMAL) Magnesium, Plasma (05/12/2025 3:56 AM EDT) Magnesium, Plasma 1.7(L) 1.9 - 2.4 mg/dL 05/12/2025 4:36 AM EDT [facility] Blood Venous blood specimen / Unknown Venipuncture / Unknown 05/12/2025 3:56 AM EDT 05/12/2025 4:03 AM EDT us Selin Lee MD LAB BLOOD ORDERABLES Final Re sult Performing Organization Address City/[facility]/ZIP Co de Phone Number [facility] [address] [place] [address] * (ABNORMAL) Basic Metabolic Panel, Plasma (05/12/2025 3:56 AM EDT) Glucose, Plasma 383(H) 74 - 99 mg/dL 05/12/2025 4:36 AM EDT [facility] BUN, Plasma 18 7 - 21 mg/dL 05/12/2025 4:36 AM EDT [facility] Creatinine, Plasma 0.86 0.70 - 1.20 mg/dL 05/12/2025 4:36 AM EDT [facility] BUN/Creatinine Ratio 21 05/12/2025 4:36 AM EDT [facility] Sodium, Plasma 130(L) 136 - 145 mmol/L 05/12/2025 4:36 AM EDT [facility] Potassium, Plasma 3.2(L) 3.6 - 4.9 mmol/L 05/12/2025 4:36 AM EDT [facility] Chloride, Plasma 85(L) 97 - 107 mmol/L 05/12/2025 4:36 AM EDT [facility] CO2, Plasma 36(H) 22 - 29 mmol/L 05/12/2025 4:36 AM EDT [facility] Anion Gap 9 6 - 16 mmol/L 05/12/2025 4:36 AM EDT [facility] Total Calcium, Plasma 8.9 8.9 - 10.2 mg/dL 05/12/2025 4:36 AM EDT [facility] eGFRcr 107.5 mL/min/1.7 3m*2 05/12/2025 4:36 AM EDT [facility] Comment:Reported eGFRcr in m L/min/1.73m2 is based the CKD-EPI 2020 equation that does not use a race coefficient. Blood Venous blood specimen / Unknown Venipuncture / Unknown 05/12/2025 3:56 AM EDT 05/12/2025 4:03 AM EDT us Selin Lee MD LAB BLOOD ORDERABLES Final Re sult [facility] [address] [place] [address] * Phosphorus, Plasma (05/12/2025 3:56 AM EDT) Phosphorus, Plasma 2.8 2.5 - 4.5 mg/dL 05/12/2025 4:36 AM EDT [facility] Blood Venous blood specimen / Unknown Venipuncture / Unknown 05/12/2025 3:56 AM EDT 05/12/2025 4:03 AM EDT us Selin Lee MD LAB BLOOD ORDERABLES Final Re sult Performing Organization Address City/[facility]/ZIP Co de Phone Number [facility] [address] [place] [address] * (ABNORMAL) POCT glucose meter (05/12/2025 3:11 AM EDT) [facility] POCT Glucose 348(H) 74 - 99 mg/dL 05/12/2025 3:13 AM EDT [facility] Comment:Accuracy of [...] to the main labortory for testing. Comment 05/12/2025 3:13 AM EDT [facility] Liquefier ID Joel Carmona 05/12/2025 3:13 AM EDT [facility] Device ID [id number] 05/12/2025 3:13 AM EDT [facility] Specimen Type POC Capillary 05/12/2025 3:13 AM EDT [facility] Blood Capillary blood specimen / Unknown 05/12/2025 3:11 AM EDT 05/12/2025 3:13 AM EDT us Selin Lee MD LAB POINT OF CARE TE ST DOCKED DEVICE UNSOLICITED RESULTS Final Result Performing Organization Address City/[facility]/ZIP Co de Phone Number [facility] [address] [place] [address] * (ABNORMAL) POCT glucose meter (05/11/2025 7:57 PM EDT) [facility] POCT Glucose 272(H) 74 - 99 mg/dL 05/11/2025 8:02 PM EDT [facility] Comment:Accuracy of [...] to the main labortory for testing. Comment 05/11/2025 8:02 PM EDT [facility] Liquefier ID Joel Carmona 05/11/2025 8:02 PM EDT [facility] Device ID [id number] 05/11/2025 8:02 PM EDT [facility] Specimen Type POC Capillary 05/11/2025 8:02 PM EDT [facility] Blood Capillary blood specimen / Unknown 05/11/2025 7:57 PM EDT 05/11/2025 8:02 PM EDT Selin Lee MD LAB POINT OF CARE TE ST DOCKED DEVICE UNSOLICITED RESULTS Final Result [facility] [address] [place] [address] * (ABNORMAL) POCT glucose meter (05/11/2025 5:05 PM EDT) [facility] POCT Glucose 258(H) 74 - 99 mg/dL 05/11/2025 5:07 PM EDT [facility] Comment:Accuracy of [...] to the main labortory for testing. Comment 05/11/2025 5:07 PM EDT [facility] Liquefier ID Char Hinojosa 05/11/2025 5:07 PM EDT [facility] Device ID [id number] 05/11/2025 5:07 PM EDT [facility] Specimen Type POC Capillary 05/11/2025 5:07 PM EDT [facility] Blood Capillary blood specimen / Unknown 05/11/2025 5:05 PM EDT 05/11/2025 5:07 PM EDT us Selin Lee MD LAB POINT OF CARE TE ST DOCKED DEVICE UNSOLICITED RESULTS Final Result Performing Organization Address [facility] de Phone Number [facility] [address] [place] [address] * (ABNORMAL) POCT glucose meter (05/11/2025 12:13 PM EDT) [facility] POCT Glucose 240(H) 74 - 99 mg/dL 05/11/2025 12:15 PM EDT [facility] Comment:Accuracy of [...] to the main labortory for testing. Comment 05/11/2025 12:15 PM EDT [facility] Liquefier ID Char Hinojosa 05/11/2025 12:15 PM EDT [facility] Device ID [id number] 05/11/2025 12:15 PM EDT [facility] Specimen Type POC Capillary 05/11/2025 12:15 PM EDT [facility] Blood Capillary blood specimen / Unknown 05/11/2025 12:13 PM EDT 05/11/2025 12:15 PM EDT us Selin Lee MD LAB POINT OF CARE TE ST DOCKED DEVICE UNSOLICITED RESULTS Final Result Performing Organization Address City/[facility] de Phone Number [facility] [address] [place] [address] * (ABNORMAL) POCT glucose meter (05/11/2025 7:57 AM EDT) [facility] POCT Glucose 318(H) 74 - 99 mg/dL 05/11/2025 7:59 AM EDT [facility] Comment:Accuracy of [...] to the main labortory for testing. Comment 05/11/2025 7:59 AM EDT [facility] Liquefier ID Char Hinojosa 05/11/2025 7:59 AM EDT [facility] Device ID [id number] 05/11/2025 7:59 AM EDT [facility] Specimen Type POC Capillary 05/11/2025 7:59 AM EDT [facility] Blood Capillary blood specimen / Unknown 05/11/2025 7:57 AM EDT 05/11/2025 7:59 AM EDT Selin Lee MD LAB POINT OF CARE TE ST DOCKED DEVICE UNSOLICITED RESULTS Final Result [facility] [address] [place] [address] * ECG Adult (05/11/2025 6:11 AM EDT) EKG DIAGNOSIS CLASS Abnormal MUSE ECG Ventricular Rate 59 BPM MUSE ECG Atrial Rate 59 BPM MUSE ECG ID Interval 176 ms MUSE ECG QRSD Interval 160 ms MUSE ECG QT Interval 520 ms MUSE ECG QTC Interval 514 ms MUSE ECG P [place] 21 degrees MUSE ECG R [place] -32 degrees MUSE ECG T Wave [place] -9 degrees MUSE ECG Diagnosis Sinus bradycardia MUSE ECG Diagnosis Left axis deviation in the presence of LAFB MUSE ECG Diagnosis Right bundle branch block MUSE ECG Diagnosis Minimal voltage criteria for LVH, may be normal variant ( R in aVL ) MUSE ECG Diagnosis T wave abnormality, consider lateral ischemia MUSE ECG Diagnosis Abnormal ECG MUSE ECG Diagnosis MUSE ECG Diagnosis Confirmed by Tone Lainez ([id number]) on 05/12/2025 11:35:23 AM MUSE ECG 05/11/2025 6:11 AM EDT 05/12/2025 11:35 AM EDT us Selin Lee MD ECG ORDERABLES Final Result Performing Organization Address City/[facility]/ZIP Co de Phone Number M[facility] ECG * (ABNORMAL) POCT glucose meter (05/11/2025 3:42 AM EDT) POCT Glucose 336(H) 74 - 99 mg/dL 05/11/2025 3:45 AM EDT [facility] Comment:Accuracy of a glucos e result obtained from a capillary whole blood specimen relies upon adequate, non-compromised capillary blood flow. If the capillary glucose result is not consistent with the patient's clinical signs and symptoms, glucose testing should be repeated with either an arterial or venous sample on the glucometer or sent to the main labortory for testing. Comment 05/11/2025 3:45 AM EDT [facility] Liquefier ID Kaylin Barron 05/11/2025 3:45 AM EDT [facility] Device ID [id number] 05/11/2025 3:45 AM EDT [facility] Specimen Type POC Capillary 05/11/2025 3:45 AM EDT [facility] Blood Capillary blood specimen / Unknown 05/11/2025 3:42 AM EDT 05/11/2025 3:45 AM EDT Selin Lee MD LAB POINT OF CARE TE ST DOCKED DEVICE UNSOLICITED RESULTS Final Result [facility] [address] [place] [address] * (ABNORMAL) CBC and Differential (05/11/2025 3:24 AM EDT) [facility] WBC Count 6.72 3.70 - 10.30 10*3/uL LAB HEMATOLOGY METHOD 05/11/2025 3:42 AM EDT [facility] RBC Count 4.13(L) 4.60 - 6.10 10*6/uL LAB HEMATOLOGY METHOD 05/11/2025 3:42 AM EDT [facility] HGB 9.5(L) 13.7 - 17.5 g/dL LAB HEMATOLOGY METHOD 05/11/2025 3:42 AM EDT [facility] HCT 31.1(L) 40.0 - 51.0 % LAB HEMATOLOGY METHOD 05/11/2025 3:42 AM EDT [facility] Platelet Count 253 155 - 369 10*3/uL LAB HEMATOLOGY METHOD 05/11/2025 3:42 AM EDT [facility] MCV 75(L) 79 - 98 fL LAB HEMATOLOGY METHOD 05/11/2025 3:42 AM EDT [facility] MCH 23.0(L) 26.0 - 32.0 pg LAB HEMATOLOGY METHOD 05/11/2025 3:42 AM EDT [facility] MCHC 30.5(L) 30.7 - 35.5 g/dL LAB HEMATOLOGY METHOD 05/11/2025 3:42 AM EDT [facility] RDW 17.8(H) 11.5 - 14.5 % LAB HEMATOLOGY METHOD 05/11/2025 3:42 AM EDT [facility] MPV 9.5 8.8 - 12.5 fL LAB HEMATOLOGY METHOD 05/11/2025 3:42 AM EDT [facility] nRBC 0.0 <=0.0 per 100 WBCs LAB HEMATOLOGY METHOD 05/11/2025 3:42 AM EDT [facility] Differential Type Automated LAB HEMATOLOGY METHOD 05/11/2025 3:42 AM EDT [facility] Neutrophils % 68 % LAB HEMATOLOGY METHOD 05/11/2025 3:42 AM EDT [facility] Lymphocytes % 17 % LAB HEMATOLOGY METHOD 05/11/2025 3:42 AM EDT [facility] Monocytes % 11 % LAB HEMATOLOGY METHOD 05/11/2025 3:42 AM EDT [facility] Eosinophils % 3 % LAB HEMATOLOGY METHOD 05/11/2025 3:42 AM EDT [facility] Basophils % 1 % LAB HEMATOLOGY METHOD 05/11/2025 3:42 AM EDT [facility] Immature Granulocytes % 0 % LAB HEMATOLOGY METHOD 05/11/2025 3:42 AM EDT [facility] Neutrophils Absolute 4.61 1.60 - 6.10 10*3/uL LAB HEMATOLOGY METHOD 05/11/2025 3:42 AM EDT [facility] Lymphocytes Absolute 1.11(L) 1.20 - 3.90 10*3/uL LAB HEMATOLOGY METHOD 05/11/2025 3:42 AM EDT [facility] Monocytes Absolute 0.72 0.30 - 0.90 10*3/uL LAB HEMATOLOGY METHOD 05/11/2025 3:42 AM EDT [facility] Eosinophils Absolute 0.21 0.00 - 0.50 10*3/uL LAB HEMATOLOGY METHOD 05/11/2025 3:42 AM EDT [facility] Basophils Absolute 0.05 0.00 - 0.10 10*3/uL LAB HEMATOLOGY METHOD 05/11/2025 3:42 AM EDT [facility] Immature Granulocytes Absolute 0.02 0.00 - 0.06 10*3/uL LAB HEMATOLOGY METHOD 05/11/2025 3:42 AM EDT [facility] Blood Venous blood specimen / Unknown Venipuncture / Unknown 05/11/2025 3:24 AM EDT 05/11/2025 3:30 AM EDT Narrative [facility] - 05/11/2025 3:42 AM EDT Therapeutic decision making should be based on absolute values, rather than percentages. us Selin Lee MD LAB BLOOD ORDERABLES Final Re sult Performing Organization Address [facility] Co de Phone Number [facility] [address] [place] [address] * (ABNORMAL) Magnesium, Plasma (05/11/2025 3:24 AM EDT) Magnesium, Plasma 1.8(L) 1.9 - 2.4 mg/dL 05/11/2025 3:58 AM EDT [facility] Blood Venous blood specimen / Unknown Venipuncture / Unknown 05/11/2025 3:24 AM EDT 05/11/2025 3:30 AM EDT us Selin Lee MD LAB BLOOD ORDERABLES Final Re sult [facility] [address] [place] [address] * (ABNORMAL) Basic Metabolic Panel, Plasma (05/11/2025 3:24 AM EDT) Glucose, Plasma 338(H) 74 - 99 mg/dL 05/11/2025 3:58 AM EDT [facility] BUN, Plasma 18 7 - 21 mg/dL 05/11/2025 3:58 AM EDT [facility] Creatinine, Plasma 0.86 0.70 - 1.20 mg/dL 05/11/2025 3:58 AM EDT [facility] BUN/Creatinine Ratio 21 05/11/2025 3:58 AM EDT [facility] Sodium, Plasma 131(L) 136 - 145 mmol/L 05/11/2025 3:58 AM EDT [facility] Potassium, Plasma 3.2(L) 3.6 - 4.9 mmol/L 05/11/2025 3:58 AM EDT [facility] Chloride, Plasma 85(L) 97 - 107 mmol/L 05/11/2025 3:58 AM EDT [facility] CO2, Plasma 39(H) 22 - 29 mmol/L 05/11/2025 3:58 AM EDT [facility] Anion Gap 7 6 - 16 mmol/L 05/11/2025 3:58 AM EDT [facility] Total Calcium, Plasma 9.1 8.9 - 10.2 mg/dL 05/11/2025 3:58 AM EDT [facility] eGFRcr 107.5 mL/min/1.7 3m*2 05/11/2025 3:58 AM EDT [facility] Comment:Reported eGFRcr in m L/min/1.73m2 is based the CKD-EPI 2020 equation that does not use a race coefficient. Blood Venous blood specimen / Unknown Venipuncture / Unknown 05/11/2025 3:24 AM EDT 05/11/2025 3:30 AM EDT us Selin Lee MD LAB BLOOD ORDERABLES Final Re sult [facility] [address] [place] [address] * Phosphorus, Plasma (05/11/2025 3:24 AM EDT) Phosphorus, Plasma 3.1 2.5 - 4.5 mg/dL 05/11/2025 3:58 AM EDT [facility] Blood Venous blood specimen / Unknown Venipuncture / Unknown 05/11/2025 3:24 AM EDT 05/11/2025 3:30 AM EDT Selin Lee MD LAB BLOOD ORDERABLES Final Re sult Performing Organization Address City/[facility] Co de Phone Number [facility] [address] [place] [address] * (ABNORMAL) POCT glucose meter (05/10/2025 7:07 PM EDT) POCT Glucose 398(H) 74 - 99 mg/dL 05/10/2025 7:10 PM EDT [facility] Comment:Accuracy of [...] to the main labortory for testing. Comment 05/10/2025 7:10 PM EDT [facility] Liquefier ID Char Hinojosa 05/10/2025 7:10 PM EDT [facility] Device ID [id number] 05/10/2025 7:10 PM EDT [facility] Specimen Type POC Capillary 05/10/2025 7:10 PM EDT [facility] Blood Capillary blood specimen / Unknown 05/10/2025 7:07 PM EDT 05/10/2025 7:10 PM EDT us Selin Lee MD LAB POINT OF CARE TE ST DOCKED DEVICE UNSOLICITED RESULTS Final Result Performing Organization Address City/[facility] Co de Phone Number [facility] [address] [place] [address] * (ABNORMAL) POCT glucose meter (05/10/2025 4:55 PM EDT) Pathologist [facility] POCT Glucose 418(H) 74 - 99 mg/dL 05/10/2025 4:57 PM EDT [facility] Comment:Accuracy of [...] to the main labortory for testing. Comment 05/10/2025 4:57 PM EDT [facility] Liquefier ID Char Hinojosa 05/10/2025 4:57 PM EDT [facility] Device ID [id number] 05/10/2025 4:57 PM EDT [facility] Specimen Type POC Capillary 05/10/2025 4:57 PM EDT [facility] Blood Capillary blood specimen / Unknown 05/10/2025 4:55 PM EDT 05/10/2025 4:57 PM EDT us Selin Lee MD LAB POINT OF CARE TE ST DOCKED DEVICE UNSOLICITED RESULTS Final Result Performing Organization Address City/[facility] Co de Phone Number [facility] [address] [place] [address] * (ABNORMAL) POCT glucose meter (05/10/2025 11:41 AM EDT) [facility] POCT Glucose 348(H) 74 - 99 mg/dL 05/10/2025 11:43 AM EDT [facility] Comment:Accuracy of [...] to the main labortory for testing. Comment 05/10/2025 11:43 AM EDT [facility] Liquefier ID Char Hinojosa 05/10/2025 11:43 AM EDT [facility] Device ID [id number] 05/10/2025 11:43 AM EDT [facility] Specimen Type POC Capillary 05/10/2025 11:43 AM EDT [facility] Blood Capillary blood specimen / Unknown 05/10/2025 11:41 AM EDT 05/10/2025 11:43 AM EDT us Selin Lee MD LAB POINT OF CARE TE ST DOCKED DEVICE UNSOLICITED RESULTS Final Result Performing Organization Address City/[facility]/ZIP Co de Phone Number [facility]ARE [facility] [address] [place] [address] * ECG 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/2025 11:20 AM EDT) EKG DIAGNOSIS CLASS Abnormal MUSE ECG Ventricular Rate 65 BPM MUSE ECG Atrial Rate 65 BPM MUSE ECG ID Interval 198 ms MUSE ECG QRSD Interval 154 ms MUSE ECG QT Interval 508 ms MUSE ECG QTC Interval 528 ms MUSE ECG P [place] 66 degrees MUSE ECG R [place] -39 degrees MUSE ECG T Wave [place] -16 degrees MUSE ECG Diagnosis Normal sinus rhythm with sinus arrhythmia MUSE ECG Diagnosis Left axis deviation MUSE ECG Diagnosis Right bundle branch block MUSE ECG Diagnosis Minimal voltage criteria for LVH, may be normal variant ( R in aVL ) MUSE ECG Diagnosis Abnormal ECG MUSE ECG Diagnosis MUSE ECG Diagnosis Confirmed by Manas Mccauley ([id number]) on 05/10/2025 3:20:48 PM MUSE ECG 05/10/2025 11:2 0 AM EDT 05/10/2025 3:20 PM EDT Selin Lee MD ECG ORDERABLES Final Result MUSE ECG * (ABNORMAL) POCT glucose meter (05/10/2025 7:30 AM EDT) Pathologist [facility] POCT Glucose 332(H) 74 - 99 mg/dL 05/10/2025 7:33 AM EDT [facility] Comment:Accuracy of [...] to the main labortory for testing. Comment 05/10/2025 7:33 AM EDT [facility] Liquefier ID Char Hinojosa 05/10/2025 7:33 AM EDT [facility] Device ID [id number] 05/10/2025 7:33 AM EDT [facility] Specimen Type POC Capillary 05/10/2025 7:33 AM EDT [facility] Blood Capillary blood specimen / Unknown 05/10/2025 7:30 AM EDT 05/10/2025 7:33 AM EDT us Selin Lee MD LAB POINT OF CARE TE ST DOCKED DEVICE UNSOLICITED RESULTS Final Result Performing Organization Address City/[facility] Co de Phone Number [facility] [address] [place] [address] * ECG 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/2025 6:14 AM EDT) EKG DIAGNOSIS CLASS Abnormal MUSE ECG Ventricular Rate 56 BPM MUSE ECG Atrial Rate 56 BPM MUSE ECG ID Interval 196 ms MUSE ECG QRSD Interval 164 ms MUSE ECG QT Interval 508 ms MUSE ECG QTC Interval 490 ms MUSE ECG P [place] 74 degrees MUSE ECG R [place] -33 degrees MUSE ECG T Wave [place] -10 degrees MUSE ECG Diagnosis Sinus bradycardia with sinus arrhythmia MUSE ECG Diagnosis Left axis deviation MUSE ECG Diagnosis Right bundle branch block MUSE ECG Diagnosis T wave abnormality, consider lateral ischemia MUSE ECG Diagnosis Abnormal ECG MUSE ECG Diagnosis MUSE ECG Diagnosis Confirmed by Manas Mccauley ([id number]) on 05/10/2025 2:45:37 PM MUSE ECG 05/10/2025 6:14 AM EDT 05/10/2025 2:45 PM EDT Selin Lee MD ECG ORDERABLES Final Result Performing Organization Address [facility] de Phone Number MUSE ECG * (ABNORMAL) POCT glucose meter (05/10/2025 4:00 AM EDT) Pathologist [facility] POCT Glucose 377(H) 74 - 99 mg/dL 05/10/2025 4:02 AM EDT [facility] Comment:Accuracy of [...] to the main labortory for testing. Comment 05/10/2025 4:02 AM EDT [facility] Liquefier ID Maribell Saeed 4:02 AM EDT [facility] Device ID [id number] 05/10/2025 4:02 AM EDT [facility] Specimen Type POC Capillary 05/10/2025 4:02 AM EDT [facility] Blood Capillary blood specimen / Unknown 05/10/2025 4:00 AM EDT 05/10/2025 4:02 AM EDT Diane Guzman MD LAB POINT OF CARE T EST DOCKED DEVICE UNSOLICITED RESULTS Final Result Performing Organization Address City/[facility]/ZIP Co de Phone Number [facility]ARE [facility] [address] [place] [address] * (ABNORMAL) POCT glucose meter (05/09/2025 8:37 PM EDT) Pathologist [facility] POCT Glucose 296(H) 74 - 99 mg/dL 05/09/2025 8:39 PM EDT [facility] Comment:Accuracy of a glucos e result obtained from a capillary whole blood specimen relies upon adequate, non-compromised capillary blood flow. If the capillary glucose result is not consistent with the patient's clinical signs and symptoms, glucose testing should be repeated with either an arterial or venous sample on the glucometer or sent to the main labortory for testing. Comment 05/09/2025 8:39 PM EDT [facility] Liquefier ID Maribell Saeed 8:39 PM EDT [facility] Device ID [id number] 05/09/2025 8:39 PM EDT [facility] Specimen Type POC Capillary 05/09/2025 8:39 PM EDT [facility] Blood Capillary blood specimen / Unknown 05/09/2025 8:37 PM EDT 05/09/2025 8:39 PM EDT Diane Guzman MD LAB POINT OF CARE T EST DOCKED DEVICE UNSOLICITED RESULTS Final Result [facility] [address] [place] [address] * Magnesium (05/09/2025 5:54 PM EDT) Magnesium, Plasma 1.9 1.9 - 2.4 mg/dL 05/09/2025 6:56 PM EDT [facility] Blood Venous blood specimen / Unknown Venipuncture / Unknown 05/09/2025 5:54 PM EDT 05/09/2025 6:25 PM EDT us Selin Lee MD LAB BLOOD ORDERABLES Final Re sult [facility] [address] [place] [address] * (ABNORMAL) Basic metabolic panel (05/09/2025 5:54 PM EDT) Glucose, Plasma 416(H) 74 - 99 mg/dL 05/09/2025 6:56 PM EDT [facility] BUN, Plasma 17 7 - 21 mg/dL 05/09/2025 6:56 PM EDT [facility] Creatinine, Plasma 0.81 0.70 - 1.20 mg/dL 05/09/2025 6:56 PM EDT [facility] BUN/Creatinine Ratio 21 05/09/2025 6:56 PM EDT [facility] Sodium, Plasma 130(L) 136 - 145 mmol/L 05/09/2025 6:56 PM EDT [facility] Potassium, Plasma 3.1(L) 3.6 - 4.9 mmol/L 05/09/2025 6:56 PM EDT [facility] Chloride, Plasma 84(L) 97 - 107 mmol/L 05/09/2025 6:56 PM EDT [facility] CO2, Plasma 35(H) 22 - 29 mmol/L 05/09/2025 6:56 PM EDT [facility] Anion Gap 11 6 - 16 mmol/L 05/09/2025 6:56 PM EDT [facility] Total Calcium, Plasma 9.1 8.9 - 10.2 mg/dL 05/09/2025 6:56 PM EDT [facility] eGFRcr 109.4 mL/min/1.7 3m*2 05/09/2025 6:56 PM EDT [facility] Comment:Reported eGFRcr in m L/min/1.73m2 is based the CKD-EPI 2020 equation that does not use a race coefficient. Blood Venous blood specimen / Unknown Venipuncture / Unknown 05/09/2025 5:54 PM EDT 05/09/2025 6:25 PM EDT Selin Lee MD LAB BLOOD ORDERABLES Final Re sult Performing Organization Address [facility] Co de Phone Number [facility] [address] [place] [address] * (ABNORMAL) POCT glucose meter (05/09/2025 5:17 PM EDT) [facility] POCT Glucose 398(H) 74 - 99 mg/dL 05/09/2025 5:20 PM EDT [facility] Comment:Accuracy [...] to the main labortory for testing. Comment 05/09/2025 5:20 PM EDT [facility] Liquefier ID Char Hinojosa 05/09/2025 5:20 PM EDT [facility] Device ID [id number] 05/09/2025 5:20 PM EDT [facility] Specimen Type POC Capillary 05/09/2025 5:20 PM EDT [facility] Blood Capillary blood specimen / Unknown 05/09/2025 5:17 PM EDT 05/09/2025 5:20 PM EDT Diane Guzman MD LAB POINT OF CARE T EST DOCKED DEVICE UNSOLICITED RESULTS Final Result Performing Organization Address City/[facility]/ZIP Co de Phone Number [facility] [address] [place] [address] * ECG Adult (05/09/2025 12:34 PM EDT) Pathologist [facility] EKG DIAGNOSIS CLASS Abnormal MUSE ECG Ventricular Rate 75 BPM MUSE ECG Atrial Rate 75 BPM MUSE ECG ID Interval 176 ms MUSE ECG QRSD Interval 164 ms MUSE ECG QT Interval 454 ms MUSE ECG QTC Interval 506 ms MUSE ECG P [place] 70 degrees MUSE ECG R [place] -38 degrees MUSE ECG T Wave [place] 2 degrees MUSE ECG Diagnosis Normal sinus rhythm MUSE ECG Diagnosis Left axis deviation MUSE ECG Diagnosis Right bundle branch block MUSE ECG Diagnosis Minimal voltage criteria for LVH, may be normal variant ( R in aVL ) MUSE ECG Diagnosis T wave abnormality, consider lateral ischemia MUSE ECG Diagnosis Abnormal ECG MUSE ECG Diagnosis MUSE ECG Diagnosis Confirmed by Garrett Robles ([id number]) on 05/09/2025 2:20:08 PM MUSE ECG 05/09/2025 12:3 4 PM EDT 05/09/2025 2:20 PM EDT us Selin Lee MD ECG ORDERABLES Final Result MUSE ECG * (ABNORMAL) POCT glucose meter (05/09/2025 12:25 PM EDT) POCT Glucose 283(H) 74 - 99 mg/dL 05/09/2025 12:27 PM EDT [facility] Comment:Accuracy of [...] to the main labortory for testing. Comment 05/09/2025 12:27 PM EDT [facility] Liquefier ID Dunia Montgomery 05/09/2025 12:27 PM EDT [facility] Device ID [id number] 05/09/2025 12:27 PM EDT [facility] Specimen Type POC Capillary 05/09/2025 12:27 PM EDT [facility] Blood Capillary blood specimen / Unknown 05/09/2025 12:25 PM EDT 05/09/2025 12:27 PM EDT us Diane Guzman MD LAB POINT OF CARE T EST DOCKED DEVICE UNSOLICITED RESULTS Final Result [facility] [address] [place] [address] * (ABNORMAL) POCT glucose meter (05/09/2025 7:52 AM EDT) [facility] POCT Glucose 306(H) 74 - 99 mg/dL 05/09/2025 7:54 AM EDT [facility] Comment:Accuracy of a glucos e result obtained from a capillary whole blood specimen relies upon adequate, non-compromised capillary blood flow. If the capillary glucose result is not consistent with the patient's clinical signs and symptoms, glucose testing should be repeated with either an arterial or venous sample on the glucometer or sent to the main labortory for testing. Comment 05/09/2025 7:54 AM EDT [facility] Liquefier ID Char Hinojosa 05/09/2025 7:54 AM EDT [facility] Device ID [id number] 05/09/2025 7:54 AM EDT [facility] Specimen Type POC Capillary 05/09/2025 7:54 AM EDT [facility] Blood Capillary blood specimen / Unknown 05/09/2025 7:52 AM EDT 05/09/2025 7:54 AM EDT us Diane Guzman MD LAB POINT OF CARE T EST DOCKED DEVICE UNSOLICITED RESULTS Final Result Performing Organization Address City/State/[facility] de Phone Number [facility]ARE [facility] [address] [place] [address] * (ABNORMAL) POCT glucose meter (05/08/2025 11:54 PM EDT) [facility] POCT Glucose 273(H) 74 - 99 mg/dL 05/08/2025 11:56 PM EDT [facility] Comment:Accuracy of [...] to the main labortory for testing. Comment 05/08/2025 11:56 PM EDT [facility] Liquefier ID Kaylin Barron 05/08/2025 11:56 PM EDT [facility] Device ID [id number] 05/08/2025 11:56 PM EDT [facility] Specimen Type POC Capillary 05/08/2025 11:56 PM EDT [facility] Blood Capillary blood specimen / Unknown 05/08/2025 11:54 PM EDT 05/08/2025 11:56 PM EDT Diane Guzman MD LAB POINT OF CARE T EST DOCKED DEVICE UNSOLICITED RESULTS Final Result [facility] [address] [place] [address] * (ABNORMAL) POCT glucose meter (05/08/2025 7:33 PM EDT) POCT Glucose 310(H) 74 - 99 mg/dL 05/08/2025 7:35 PM EDT [facility] Comment:Accuracy of [...] to the main labortory for testing. Comment 05/08/2025 7:35 PM EDT [facility] Liquefier ID Kaylin Barron 05/08/2025 7:35 PM EDT [facility] Device ID [id number] 05/08/2025 7:35 PM EDT [facility] Specimen Type POC Capillary 05/08/2025 7:35 PM EDT [facility] Blood Capillary blood specimen / Unknown 05/08/2025 7:33 PM EDT 05/08/2025 7:35 PM EDT Diane Guzman MD LAB POINT OF CARE T EST DOCKED DEVICE UNSOLICITED RESULTS Final Result [facility] [address] [place] [address] * (ABNORMAL) POCT glucose meter (05/08/2025 5:00 PM EDT) POCT Glucose 347(H) 74 - 99 mg/dL 05/08/2025 5:02 PM EDT [facility] Comment:Accuracy of [...] to the main labortory for testing. Comment 05/08/2025 5:02 PM EDT [facility] Liquefier ID Char Hinojosa 05/08/2025 5:02 PM EDT [facility] Device ID [id number] 05/08/2025 5:02 PM EDT [facility] Specimen Type POC Capillary 05/08/2025 5:02 PM EDT [facility] Blood Capillary blood specimen / Unknown 05/08/2025 5:00 PM EDT 05/08/2025 5:02 PM EDT us Diane Guzman MD LAB POINT OF CARE T EST DOCKED DEVICE UNSOLICITED RESULTS Final Result Performing Organization Address City/State/[facility] Co de Phone Number [facility] [address] [place] [address] * (ABNORMAL) POCT glucose meter (05/08/2025 11:42 AM EDT) POCT Glucose 298(H) 74 - 99 mg/dL 05/08/2025 11:44 AM EDT [facility] Comment:Accuracy of a glucos e result obtained from a capillary whole blood specimen relies upon adequate, non-compromised capillary blood flow. If the capillary glucose result is not consistent with the patient's clinical signs and symptoms, glucose testing should be repeated with either an arterial or venous sample on the glucometer or sent to the main labortory for testing. Comment 05/08/2025 11:44 AM EDT [facility] Liquefier ID Char Hinojosa 05/08/2025 11:44 AM EDT [facility] Device ID [id number] 05/08/2025 11:44 AM EDT [facility] Specimen Type POC Capillary 05/08/2025 11:44 AM EDT [facility] Blood Capillary blood specimen / Unknown 05/08/2025 11:42 AM EDT 05/08/2025 11:44 AM EDT us Diane Guzman MD LAB POINT OF CARE T EST DOCKED DEVICE UNSOLICITED RESULTS Final Result [facility] [address] [place] [address] * (ABNORMAL) POCT glucose meter (05/08/2025 8:05 AM EDT) [facility] POCT Glucose 346(H) 74 - 99 mg/dL 05/08/2025 8:07 AM EDT [facility] Comment:Accuracy of a glucos e result obtained from a capillary whole blood specimen relies upon adequate, non-compromised capillary blood flow. If the capillary glucose result is not consistent with the patient's clinical signs and symptoms, glucose testing should be repeated with either an arterial or venous sample on the glucometer or sent to the main labortory for testing. Comment 05/08/2025 8:07 AM EDT [facility] Liquefier ID Char Hinojosa 05/08/2025 8:07 AM EDT [facility] Device ID [id number] 05/08/2025 8:07 AM EDT [facility] Specimen Type POC Capillary 05/08/2025 8:07 AM EDT [facility] Blood Capillary blood specimen / Unknown 05/08/2025 8:05 AM EDT 05/08/2025 8:07 AM EDT Diane Guzman MD LAB POINT OF CARE T EST DOCKED DEVICE UNSOLICITED RESULTS Final Result [facility] [address] [place] [address] * (ABNORMAL) POCT glucose meter (05/08/2025 3:56 AM EDT) [facility] POCT Glucose 388(H) 74 - 99 mg/dL 05/08/2025 3:58 AM EDT [facility] Comment:Accuracy of [...] to the main labortory for testing. Comment 05/08/2025 3:58 AM EDT [facility] Liquefier ID Stella Coleman 05/08/20 3:58 AM EDT [facility] Device ID [id number] 05/08/2025 3:58 AM EDT [facility] Specimen Type POC Capillary 05/08/2025 3:58 AM EDT [facility] Blood Capillary blood specimen / Unknown 05/08/2025 3:56 AM EDT 05/08/2025 3:58 AM EDT Diane Guzman MD LAB POINT OF CARE T EST DOCKED DEVICE UNSOLICITED RESULTS Final Result Performing Organization Address City/[facility]/ZIP Co de Phone Number [facility] [address] [place] [address] * (ABNORMAL) POCT glucose meter (05/07/2025 8:14 PM EDT) [facility] POCT Glucose 392(H) 74 - 99 mg/dL 05/07/2025 8:15 PM EDT [facility] Comment:Accuracy of [...] to the main labortory for testing. Comment 05/07/2025 8:15 PM EDT [facility] Liquefier ID Fela Coelho 05/07/2025 8:15 PM EDT [facility] Device ID [id number] 05/07/2025 8:15 PM EDT [facility] Specimen Type POC Capillary 05/07/2025 8:15 PM EDT [facility] Blood Capillary blood specimen / Unknown 05/07/2025 8:14 PM EDT 05/07/2025 8:15 PM EDT Diane Guzman MD LAB POINT OF CARE T EST DOCKED DEVICE UNSOLICITED RESULTS Final Result Performing Organization Address City/[facility]/ZIP Co de Phone Number [facility] [address] [place] [address] * (ABNORMAL) POCT glucose meter (05/07/2025 5:10 PM EDT) [facility] POCT Glucose 411(H) 74 - 99 mg/dL 05/07/2025 5:13 PM EDT [facility] Comment:Accuracy of [...] to the main labortory for testing. Comment 05/07/2025 5:13 PM EDT [facility] Liquefier ID Priyanka Negrete 05/07/20 5:13 PM EDT [facility] Device ID [id number] 05/07/2025 5:13 PM EDT [facility] Specimen Type POC Capillary 05/07/2025 5:13 PM EDT [facility] Blood Capillary blood specimen / Unknown 05/07/2025 5:10 PM EDT 05/07/2025 5:13 PM EDT Diane Guzman MD LAB POINT OF CARE T EST DOCKED DEVICE UNSOLICITED RESULTS Final Result Performing Organization Address City/State/[facility] Co de Phone Number [facility] [address] [place] [address] * (ABNORMAL) POCT glucose meter (05/07/2025 12:04 PM EDT) [facility] POCT Glucose 350(H) 74 - 99 mg/dL 05/07/2025 12:10 PM EDT [facility] Comment:Accuracy of [...] to the main labortory for testing. Comment 05/07/2025 12:10 PM EDT [facility] Liquefier ID Priyanka Negrete 05/07/20 12:10 PM EDT [employer] [facility] Device ID [id number] 05/07/2025 12:10 PM EDT [facility] Specimen Type POC Capillary 05/07/2025 12:10 PM EDT [facility] Blood Capillary blood specimen / Unknown 05/07/2025 12:04 PM EDT 05/07/2025 12:10 PM EDT Diane Guzman MD LAB POINT OF CARE T EST DOCKED DEVICE UNSOLICITED RESULTS Final Result Performing Organization Address City/[facility] Co de Phone Number [facility] [address] [place] [address] * (ABNORMAL) POCT glucose meter (05/07/2025 7:41 AM EDT) POCT Glucose 356(H) 74 - 99 mg/dL 05/07/2025 7:44 AM EDT [facility] Comment:Accuracy of [...] to the main labortory for testing. Comment 05/07/2025 7:44 AM EDT [facility] Liquefier ID Priyanka Negrete 05/07/20 7:44 AM EDT [facility]ALTH[facility] LAB Device ID [id number] 05/07/2025 7:44 AM EDT [facility] Specimen Type POC Capillary 05/07/2025 7:44 AM EDT [facility] Blood Capillary blood specimen / Unknown 05/07/2025 7:41 AM EDT 05/07/2025 7:44 AM EDT Diane Guzman MD LAB POINT OF CARE T EST DOCKED DEVICE UNSOLICITED RESULTS Final Result Performing Organization Address City/[facility]/ZIP Co de Phone Number [facility] [address] [place] [address] * (ABNORMAL) POCT glucose meter (05/07/2025 3:41 AM EDT) POCT Glucose 407(H) 74 - 99 mg/dL 05/07/2025 3:43 AM EDT [facility] Comment:Accuracy of [...] to the main labortory for testing. Comment 05/07/2025 3:43 AM EDT [facility] Liquefier ID Won Casas 05/07/2025 3:43 AM EDT [facility] Device ID [id number] 05/07/2025 3:43 AM EDT [facility] Specimen Type POC Capillary 05/07/2025 3:43 AM EDT [facility] Blood Capillary blood specimen / Unknown 05/07/2025 3:41 AM EDT 05/07/2025 3:43 AM EDT us Diane Guzman MD LAB POINT OF CARE T EST DOCKED DEVICE UNSOLICITED RESULTS Final Result Performing Organization Address City/State/[facility] Co de Phone Number [facility] [address] [place] [address] * (ABNORMAL) POCT glucose meter (05/06/2025 8:01 PM EDT) [facility] POCT Glucose 324(H) 74 - 99 mg/dL 05/06/2025 8:02 PM EDT [facility] Comment:Accuracy of [...] to the main labortory for testing. Comment 05/06/2025 8:02 PM EDT [facility] Liquefier ID Won Casas 05/06/2025 8:02 PM EDT [facility] Device ID [id number] 05/06/2025 8:02 PM EDT [facility] Specimen Type POC Capillary 05/06/2025 8:02 PM EDT [facility] Blood Capillary blood specimen / Unknown 05/06/2025 8:01 PM EDT 05/06/2025 8:02 PM EDT us Diane Guzman MD LAB POINT OF CARE T EST DOCKED DEVICE UNSOLICITED RESULTS Final Result Performing Organization Address City/[facility] Co de Phone Number [facility] [address] [place] [address] * (ABNORMAL) POCT glucose meter (05/06/2025 4:40 PM EDT) POCT Glucose 212(H) 74 - 99 mg/dL 05/06/2025 4:46 PM EDT [facility] Comment:Accuracy of a glucos e result obtained from a capillary whole blood specimen relies upon adequate, non-compromised capillary blood flow. If the capillary glucose result is not consistent with the patient's clinical signs and symptoms, glucose testing should be repeated with either an arterial or venous sample on the glucometer or sent to the main labortory for testing. Comment 05/06/2025 4:46 PM EDT [facility] Liquefier ID Sherrell Navarro 05/06/2025 4:46 PM EDT [facility] LAB Device ID [id number] 05/06/2025 4:46 PM EDT [facility] Specimen Type POC Capillary 05/06/2025 4:46 PM EDT [facility] Blood Capillary blood specimen / Unknown 05/06/2025 4:40 PM EDT 05/06/2025 4:46 PM EDT Diane Guzman MD LAB POINT OF CARE T EST DOCKED DEVICE UNSOLICITED RESULTS Final Result Performing Organization Address City/[facility] Co de Phone Number [facility] [address] [place] [address] * PSA, diagnostic (05/06/2025 12:27 PM EDT) PSA, Diagnostic, Serum 0.03 0.00 - 2.50 ng/mL 05/06/2025 1:10 PM EDT [facility] Blood Venous blood specimen / Unknown Venipuncture / Unknown 05/06/2025 12:27 PM EDT 05/06/2025 12:33 PM EDT Narrative [facility] - 05/06/2025 1:10 PM EDT Performed by [employer] electrochemiluminescent immunoassay which is standardized against the PSA Jeb Reference Standard (WHO 96/670). Results obtained with different test methods or kits cannot be used interchangeably. Diane Guzman MD LAB BLOOD ORDERABLES Final Result Performing Organization Address City/[facility] Co de Phone Number [facility] [address] [place] [address] * (ABNORMAL) POCT glucose meter (05/06/2025 11:28 AM EDT) Pathologist [facility] POCT Glucose 337(H) 74 - 99 mg/dL 05/06/2025 11:30 AM EDT [facility] Comment:Accuracy of a glucos e result obtained from a capillary whole blood specimen relies upon adequate, non-compromised capillary blood flow. If the capillary glucose result is not consistent with the patient's clinical signs and symptoms, glucose testing should be repeated with either an arterial or venous sample on the glucometer or sent to the main labortory for testing. Comment 05/06/2025 11:30 AM EDT [facility] Liquefier ID Sherrell Navarro 05/06/2025 11:30 AM EDT [facility] Device ID [id number] 05/06/2025 11:30 AM EDT [facility] Specimen Type POC Capillary 05/06/2025 11:30 AM EDT [facility] Blood Capillary blood specimen / Unknown 05/06/2025 11:28 AM EDT 05/06/2025 11:30 AM EDT Diane Guzman MD LAB POINT OF CARE T EST DOCKED DEVICE UNSOLICITED RESULTS Final Result Performing Organization Address City/[facility] Co de Phone Number HEALTHCARE LAB [address] [place] [address] * (ABNORMAL) POCT glucose meter (05/06/2025 8:13 AM EDT) [facility] POCT Glucose 348(H) 74 - 99 mg/dL 05/06/2025 8:23 AM EDT HEALTHCARE LAB Comment:Accuracy of a glucos e result obtained from a capillary whole blood specimen relies upon adequate, non-compromised capillary blood flow. If the capillary glucose result is not consistent with the patient's clinical signs and symptoms, glucose testing should be repeated with either an arterial or venous sample on the glucometer or sent to the main labortory for testing. Comment 05/06/2025 8:23 AM EDT HEALTHCARE LAB Liquefier ID Sherrell Navarro 05/06/2025 8:23 AM EDT HEALTHCARE LAB Device ID [id number] 05/06/2025 8:23 AM EDT HEALTHCARE LAB Specimen Type POC Capillary 05/06/2025 8:23 AM EDT HEALTHCARE LAB Blood Capillary blood specimen / Unknown 05/06/2025 8:13 AM EDT 05/06/2025 8:23 AM EDT us Diane Guzman MD LAB POINT OF CARE T EST DOCKED DEVICE UNSOLICITED RESULTS Final Result Performing Organization Address [facility] de Phone Number HEALTHCARE LAB [address] [place] [address] * (ABNORMAL) POCT glucose meter (05/06/2025 3:09 AM EDT) POCT Glucose 364(H) 74 - 99 mg/dL 05/06/2025 3:11 AM EDT [facility] Comment:Accuracy of [...] to the main labortory for testing. Comment 05/06/2025 3:11 AM EDT [facility] Liquefier ID Won Casas 05/06/2025 3:11 AM EDT HEALTHCARE LAB Device ID [id number] 05/06/2025 3:11 AM EDT HEALTHCARE LAB Specimen Type POC Capillary 05/06/2025 3:11 AM EDT [facility]ALTHCARE LAB Blood Capillary blood specimen / Unknown 05/06/2025 3:09 AM EDT 05/06/2025 3:11 AM EDT us Diane Guzman MD LAB POINT OF CARE T EST DOCKED DEVICE UNSOLICITED RESULTS Final Result Performing Organization Address City/[facility] Co de Phone Number HEALTHCARE LAB [address] [place] [address] * (ABNORMAL) POCT glucose meter (05/05/2025 8:19 PM EDT) [facility] POCT Glucose 324(H) 74 - 99 mg/dL 05/05/2025 8:20 PM EDT [facility] Comment:Accuracy of [...] to the main labortory for testing. Comment 05/05/2025 8:20 PM EDT HEALTHCARE LAB Liquefier ID [email or web address] 05/05/2025 8:20 PM EDT HEALTHCARE LAB Device ID [id number] 05/05/2025 8:20 PM EDT HEALTHCARE LAB Specimen Type POC Capillary 05/05/2025 8:20 PM EDT HEALTHCARE LAB Blood Capillary blood specimen / Unknown 05/05/2025 8:19 PM EDT 05/05/2025 8:20 PM EDT Diane Guzman MD LAB POINT OF CARE T EST DOCKED DEVICE UNSOLICITED RESULTS Final Result [facility] [address] [place] [address] * (ABNORMAL) POCT glucose meter (05/05/2025 5:09 PM EDT) [facility] POCT Glucose 371(H) 74 - 99 mg/dL 05/05/2025 5:14 PM EDT [facility] Comment:Accuracy [...] to the main labortory for testing. Comment 05/05/2025 5:14 PM EDT HEALTHCARE LAB Liquefier ID Sherrell Navarro 05/05/2025 5:14 PM EDT HEALTHCARE LAB Device ID [id number] 05/05/2025 5:14 PM EDT HEALTHCARE LAB Specimen Type POC Capillary 05/05/2025 5:14 PM EDT [facility] Blood Capillary blood specimen / Unknown 05/05/2025 5:09 PM EDT 05/05/2025 5:14 PM EDT Diane Guzman MD LAB POINT OF CARE T EST DOCKED DEVICE UNSOLICITED RESULTS Final Result Performing Organization Address City/[facility]/ZIP Co de Phone Number HEALTHCARE LAB [address] [place] [address] * (ABNORMAL) POCT glucose meter (05/05/2025 11:29 AM EDT) POCT Glucose 292(H) 74 - 99 mg/dL 05/05/2025 11:32 AM EDT [facility] Comment:Accuracy of [...] to the main labortory for testing. Comment 05/05/2025 11:32 AM EDT HEALTHCARE LAB Liquefier ID Sherrell Navarro 05/05/2025 11:32 AM EDT HEALTHCARE LAB Device ID [id number] 05/05/2025 11:32 AM EDT HEALTHCARE LAB Specimen Type POC Capillary 05/05/2025 11:32 AM EDT [facility]ALTH[facility] LAB Blood Capillary blood specimen / Unknown 05/05/2025 11:29 AM EDT 05/05/2025 11:32 AM EDT Diane Guzman MD LAB POINT OF CARE T EST DOCKED DEVICE UNSOLICITED RESULTS Final Result Performing Organization Address City/[facility]/ZIP Co de Phone Number HEALTHCARE LAB [address] [place] [address] * (ABNORMAL) POCT glucose meter (05/05/2025 7:55 AM EDT) POCT Glucose 290(H) 74 - 99 mg/dL 05/05/2025 7:57 AM EDT [facility] Comment:Accuracy of [...] to the main labortory for testing. Comment 05/05/2025 7:57 AM EDT [facility] Liquefier ID Sherrell Navarro 05/05/2025 7:57 AM EDT HEALTHCARE LAB Device ID [id number] 05/05/2025 7:57 AM EDT [facility]ALTH[facility]ARE LAB Specimen Type POC Capillary 05/05/2025 7:57 AM EDT [facility] Blood Capillary blood specimen / Unknown 05/05/2025 7:55 AM EDT 05/05/2025 7:57 AM EDT Diane Guzman MD LAB POINT OF CARE T EST DOCKED DEVICE UNSOLICITED RESULTS Final Result Performing Organization Address City/State/[facility] Co de Phone Number HEALTHCARE LAB [address] [place] [address] * (ABNORMAL) POCT glucose meter (05/04/2025 7:35 PM EDT) [facility] POCT Glucose 236(H) 74 - 99 mg/dL 05/04/2025 7:37 PM EDT [facility] Comment:Accuracy of [...] to the main labortory for testing. Comment 05/04/2025 7:37 PM EDT [facility] Liquefier ID Kaylin Barron 05/04/2025 7:37 PM EDT [facility] Device ID [id number] 05/04/2025 7:37 PM EDT [facility] Specimen Type POC Capillary 05/04/2025 7:37 PM EDT [facility] Blood Capillary blood specimen / Unknown 05/04/2025 7:35 PM EDT 05/04/2025 7:37 PM EDT Diane Guzman MD LAB POINT OF CARE T EST DOCKED DEVICE UNSOLICITED RESULTS Final Result Performing Organization Address City/[facility] de Phone Number HEALTHCARE LAB [address] [place] [address] * (ABNORMAL) POCT glucose meter (05/04/2025 4:51 PM EDT) [facility] POCT Glucose 233(H) 74 - 99 mg/dL 05/04/2025 4:53 PM EDT [facility] Comment:Accuracy of [...] to the main labortory for testing. Comment 05/04/2025 4:53 PM EDT HEALTHCARE LAB Liquefier ID Araceli Doran 025 4:53 PM EDT HEALTHCARE LAB Device ID [id number] 05/04/2025 4:53 PM EDT [facility] Specimen Type POC Capillary 05/04/2025 4:53 PM EDT [facility] Blood Capillary blood specimen / Unknown 05/04/2025 4:51 PM EDT 05/04/2025 4:53 PM EDT Diane Guzman MD LAB POINT OF CARE T EST DOCKED DEVICE UNSOLICITED RESULTS Final Result Performing Organization Address City/[facility] Co de Phone Number [facility] [address] [place] [address] * (ABNORMAL) POCT glucose meter (05/04/2025 11:51 AM EDT) [facility] POCT Glucose 271(H) 74 - 99 mg/dL 05/04/2025 11:56 AM EDT [facility] Comment:Accuracy of [...] to the main labortory for testing. Comment 05/04/2025 11:56 AM EDT HEALTHCARE LAB Liquefier ID Araceli Doran 11:56 AM EDT HEALTHCARE LAB Device ID [id number] 05/04/2025 11:56 AM EDT HEALTHCARE LAB Specimen Type POC Capillary 05/04/2025 11:56 AM EDT [facility] LAB Blood Capillary blood specimen / Unknown 05/04/2025 11:51 AM EDT 05/04/2025 11:56 AM EDT Diane Guzman MD LAB POINT OF CARE T EST DOCKED DEVICE UNSOLICITED RESULTS Final Result Performing Organization Address City/[facility] Co de Phone Number HEALTHCARE LAB [address] [place] [id number] * (ABNORMAL) POCT glucose meter (05/04/2025 8:09 AM EDT) POCT Glucose 259(H) 74 - 99 mg/dL 05/04/2025 8:17 AM EDT [facility] Comment:Accuracy of [...] to the main labortory for testing. Comment 05/04/2025 8:17 AM EDT [facility]ALTH[facility]ARE LAB Liquefier ID Araceli Doran 8:17 AM EDT HEALTHCARE LAB Device ID [id number] 05/04/2025 8:17 AM EDT [facility]ARE LAB Specimen Type POC Capillary 05/04/2025 8:17 AM EDT [facility]ARE LAB Blood Capillary blood specimen / Unknown 05/04/2025 8:09 AM EDT 05/04/2025 8:17 AM EDT us Diane Guzman MD LAB POINT OF CARE T EST DOCKED DEVICE UNSOLICITED RESULTS Final Result Performing Organization Address City/[facility]/ZIP Co de Phone Number [facility] [address] [place] [address] * (ABNORMAL) POCT glucose meter (05/04/2025 4:44 AM EDT) [facility] POCT Glucose 335(H) 74 - 99 mg/dL 05/04/2025 4:46 AM EDT [facility] Comment:Accuracy of [...] to the main labortory for testing. Comment 05/04/2025 4:46 AM EDT HEALTHCARE LAB Liquefier ID Kaylin Barron 05/04/2025 4:46 AM EDT [facility] Device ID [id number] 05/04/2025 4:46 AM EDT HEALTHCARE LAB Specimen Type POC Capillary 05/04/2025 4:46 AM EDT [facility] Blood Capillary blood specimen / Unknown 05/04/2025 4:44 AM EDT 05/04/2025 4:46 AM EDT Diane Guzman MD LAB POINT OF CARE T EST DOCKED DEVICE UNSOLICITED RESULTS Final Result [facility] [address] [place] [address] * (ABNORMAL) POCT glucose meter (05/03/2025 7:27 PM EDT) [facility] POCT Glucose 331(H) 74 - 99 mg/dL 05/03/2025 7:33 PM EDT [facility] Comment:Accuracy of [...] to the main labortory for testing. Comment 05/03/2025 7:33 PM EDT [facility] Liquefier ID Kaylin Barron 05/03/2025 7:33 PM EDT [facility] Device ID [id number] 05/03/2025 7:33 PM EDT [facility]ARE [facility] Specimen Type POC Capillary 05/03/2025 7:33 PM EDT [facility] Blood Capillary blood specimen / Unknown 05/03/2025 7:27 PM EDT 05/03/2025 7:33 PM EDT Diane Guzman MD LAB POINT OF CARE T EST DOCKED DEVICE UNSOLICITED RESULTS Final Result [facility] [address] [place] [address] * (ABNORMAL) Comprehensive metabolic panel (05/03/2025 6:22 PM EDT) Glucose, Plasma 290(H) 74 - 99 mg/dL 05/03/2025 7:13 PM EDT [facility] BUN, Plasma 14 7 - 21 mg/dL 05/03/2025 7:13 PM EDT [facility] Creatinine, Plasma 0.71 0.70 - 1.20 mg/dL 05/03/2025 7:13 PM EDT [facility] BUN/Creatinine Ratio 20 05/03/2025 7:13 PM EDT [facility] Sodium, Plasma 133(L) 136 - 145 mmol/L 05/03/2025 7:13 PM EDT [facility] Potassium, Plasma 3.6 3.6 - 4.9 mmol/L 05/03/2025 7:13 PM EDT [facility] Chloride, Plasma 87(L) 97 - 107 mmol/L 05/03/2025 7:13 PM EDT [facility] CO2, Plasma 37(H) 22 - 29 mmol/L 05/03/2025 7:13 PM EDT [facility] Anion Gap 9 6 - 16 mmol/L 05/03/2025 7:13 PM EDT [facility] Total Calcium, Plasma 9.4 8.9 - 10.2 mg/dL 05/03/2025 7:13 PM EDT [facility] Total Protein 8.0(H) 6.3 - 7.9 g/dL 05/03/2025 7:13 PM EDT [facility] Albumin, Plasma 3.6 3.5 - 5.2 g/dL 05/03/2025 7:13 PM EDT [facility] AST, Plasma 18 10 - 50 U/L 05/03/2025 7:13 PM EDT [facility] ALT, Plasma 12 10 - 50 U/L 05/03/2025 7:13 PM EDT [facility] Alkaline Phosphatase, Plasma 64 40 - 115 U/L 05/03/2025 7:13 PM EDT [facility] Total Bilirubin, Plasma 0.7 0.2 - 1.1 mg/dL 05/03/2025 7:13 PM EDT [facility] eGFRcr 113.9 mL/min/1.7 3m*2 05/03/2025 7:13 PM EDT [facility] Comment:Reported eGFRcr in m L/min/1.73m2 is based the CKD-EPI 2020 equation that does not use a race coefficient. Blood Venous blood specimen / Unknown Venipuncture / Unknown 05/03/2025 6:22 PM EDT 05/03/2025 6:38 PM EDT Diane Guzman MD LAB BLOOD ORDERABLES Final Result [facility] [address] [place] [address] * Creatine Kinase (CK), Total (05/03/2025 6:22 PM EDT) [facility] Creatine Kinase, Plasma 54 49 - 320 U/L 05/03/2025 7:13 PM EDT [facility] Blood Venous blood specimen / Unknown Venipuncture / Unknown 05/03/2025 6:22 PM EDT 05/03/2025 6:38 PM EDT Diane Guzman MD LAB BLOOD ORDERABLES Final Result [facility] [address] [place] [address] * (ABNORMAL) POCT glucose meter (05/03/2025 5:30 PM EDT) Pathologist [facility] POCT Glucose 258(H) 74 - 99 mg/dL 05/03/2025 5:33 PM EDT [facility] Comment:Accuracy of [...] to the main labortory for testing. Comment 05/03/2025 5:33 PM EDT HEALTHCARE LAB Liquefier ID Dunia Montgomery 05/03/2025 5:33 PM EDT HEALTHCARE LAB Device ID [id number] 05/03/2025 5:33 PM EDT [facility]ALTH[facility]ARE [facility] Specimen Type POC Capillary 05/03/2025 5:33 PM EDT [facility] Blood Capillary blood specimen / Unknown 05/03/2025 5:30 PM EDT 05/03/2025 5:33 PM EDT Diane Guzman MD LAB POINT OF CARE T EST DOCKED DEVICE UNSOLICITED RESULTS Final Result Performing Organization Address City/State/[facility] Co de Phone Number HEALTHCARE LAB [address] [place] [address] * (ABNORMAL) POCT glucose meter (05/03/2025 11:36 AM EDT) [facility] POCT Glucose 310(H) 74 - 99 mg/dL 05/03/2025 11:38 AM EDT [facility] Comment:Accuracy of [...] to the main labortory for testing. Comment 05/03/2025 11:38 AM EDT [facility]ALTH[facility]ARE [facility] Liquefier ID Sushila Cardozagus Mensah 05/03/2025 11:38 AM EDT HEALTHCARE LAB Device ID [id number] 05/03/2025 11:38 AM EDT [facility]ARE [facility] Specimen Type POC Capillary 05/03/2025 11:38 AM EDT [facility] Blood Capillary blood specimen / Unknown 05/03/2025 11:36 AM EDT 05/03/2025 11:38 AM EDT Diane Guzman MD LAB POINT OF CARE T EST DOCKED DEVICE UNSOLICITED RESULTS Final Result Performing Organization Address [facility] Co de Phone Number HEALTHCARE LAB [address] [place] [address] * (ABNORMAL) POCT glucose meter (05/03/2025 8:09 AM EDT) Pathologist [facility] POCT Glucose 339(H) 74 - 99 mg/dL 05/03/2025 8:11 AM EDT [facility] Comment:Accuracy of [...] to the main labortory for testing. Comment 05/03/2025 8:11 AM EDT [facility]ALTHCARE [facility] Liquefier ID Dunia Montgomery 05/03/2025 8:11 AM EDT HEALTHCARE LAB Device ID [id number] 05/03/2025 8:11 AM EDT [facility] Specimen Type POC Capillary 05/03/2025 8:11 AM EDT [facility] Blood Capillary blood specimen / Unknown 05/03/2025 8:09 AM EDT 05/03/2025 8:11 AM EDT Diane Guzman MD LAB POINT OF CARE T EST DOCKED DEVICE UNSOLICITED RESULTS Final Result Performing Organization Address City/[facility] Co de Phone Number [facility] [address] [place] [address] * (ABNORMAL) POCT glucose meter (05/03/2025 3:37 AM EDT) Pathologist [facility] POCT Glucose 372(H) 74 - 99 mg/dL 05/03/2025 3:40 AM EDT [facility] Comment:Accuracy of [...] to the main labortory for testing. Comment 05/03/2025 3:40 AM EDT HEALTH[facility]ARE [facility] Liquefier ID Maribell Saeed 3:40 AM EDT HEALTHCARE LAB Device ID [id number] 05/03/2025 3:40 AM EDT [facility]ALTH[facility]ARE LAB Specimen Type POC Capillary 05/03/2025 3:40 AM EDT [facility]ALTH[facility] Blood Capillary blood specimen / Unknown 05/03/2025 3:37 AM EDT 05/03/2025 3:40 AM EDT us Diane Guzman MD LAB POINT OF CARE T EST DOCKED DEVICE UNSOLICITED RESULTS Final Result Performing Organization Address City/State/[facility] Co de Phone Number HEALTHCARE LAB [address] [place] [address] * (ABNORMAL) CBC and Differential (05/03/2025 3:16 AM EDT) [facility] WBC Count 6.86 3.70 - 10.30 10*3/uL LAB HEMATOLOGY METHOD 05/03/2025 3:33 AM EDT [facility] RBC Count 3.82(L) 4.60 - 6.10 10*6/uL LAB HEMATOLOGY METHOD 05/03/2025 3:33 AM EDT [facility] HGB 8.9(L) 13.7 - 17.5 g/dL LAB HEMATOLOGY METHOD 05/03/2025 3:33 AM EDT [facility] HCT 29.2(L) 40.0 - 51.0 % LAB HEMATOLOGY METHOD 05/03/2025 3:33 AM EDT [facility] Platelet Count 202 155 - 369 10*3/uL LAB HEMATOLOGY METHOD 05/03/2025 3:33 AM EDT [facility] MCV 76(L) 79 - 98 fL LAB HEMATOLOGY METHOD 05/03/2025 3:33 AM EDT [facility] MCH 23.3(L) 26.0 - 32.0 pg LAB HEMATOLOGY METHOD 05/03/2025 3:33 AM EDT [facility] MCHC 30.5(L) 30.7 - 35.5 g/dL LAB HEMATOLOGY METHOD 05/03/2025 3:33 AM EDT [facility] RDW 18.8(H) 11.5 - 14.5 % LAB HEMATOLOGY METHOD 05/03/2025 3:33 AM EDT [facility] MPV 9.1 8.8 - 12.5 fL LAB HEMATOLOGY METHOD 05/03/2025 3:33 AM EDT [facility] nRBC 0.0 <=0.0 per 100 WBCs LAB HEMATOLOGY METHOD 05/03/2025 3:33 AM EDT [facility] Differential Type Automated LAB HEMATOLOGY METHOD 05/03/2025 3:33 AM EDT [facility] Neutrophils % 70 % LAB HEMATOLOGY METHOD 05/03/2025 3:33 AM EDT [facility] Lymphocytes % 15 % LAB HEMATOLOGY METHOD 05/03/2025 3:33 AM EDT [facility] Monocytes % 9 % LAB HEMATOLOGY METHOD 05/03/2025 3:33 AM EDT [facility] Eosinophils % 5 % LAB HEMATOLOGY METHOD 05/03/2025 3:33 AM EDT [facility] Basophils % 0 % LAB HEMATOLOGY METHOD 05/03/2025 3:33 AM EDT [facility] Immature Granulocytes % 1 % LAB HEMATOLOGY METHOD 05/03/2025 3:33 AM EDT [facility] Neutrophils Absolute 4.85 1.60 - 6.10 10*3/uL LAB HEMATOLOGY METHOD 05/03/2025 3:33 AM EDT [facility] Lymphocytes Absolute 1.03(L) 1.20 - 3.90 10*3/uL LAB HEMATOLOGY METHOD 05/03/2025 3:33 AM EDT [facility] Monocytes Absolute 0.59 0.30 - 0.90 10*3/uL LAB HEMATOLOGY METHOD 05/03/2025 3:33 AM EDT [facility] Eosinophils Absolute 0.32 0.00 - 0.50 10*3/uL LAB HEMATOLOGY METHOD 05/03/2025 3:33 AM EDT [facility] Basophils Absolute 0.03 0.00 - 0.10 10*3/uL LAB HEMATOLOGY METHOD 05/03/2025 3:33 AM EDT [facility] Immature Granulocytes Absolute 0.04 0.00 - 0.06 10*3/uL LAB HEMATOLOGY METHOD 05/03/2025 3:33 AM EDT [facility] Blood Venous blood specimen / Unknown Venipuncture / Unknown 05/03/2025 3:16 AM EDT 05/03/2025 3:25 AM EDT Narrative [facility] - 05/03/2025 3:33 AM EDT Therapeutic decision making should be based on absolute values, rather than percentages. us Marjorie Myers MD LAB BLOOD ORDERABLES Final Resul t [facility] [address] [place] [address] * (ABNORMAL) Basic Metabolic Panel, Plasma (05/03/2025 3:16 AM EDT) Glucose, Plasma 399(H) 74 - 99 mg/dL 05/03/2025 4:02 AM EDT [facility] BUN, Plasma 15 7 - 21 mg/dL 05/03/2025 4:02 AM EDT [facility] Creatinine, Plasma 0.78 0.70 - 1.20 mg/dL 05/03/2025 4:02 AM EDT [facility] BUN/Creatinine Ratio 19 05/03/2025 4:02 AM EDT [facility] Sodium, Plasma 136 136 - 145 mmol/L 05/03/2025 4:02 AM EDT [facility] Potassium, Plasma 3.6 3.6 - 4.9 mmol/L 05/03/2025 4:02 AM EDT [facility] Chloride, Plasma 90(L) 97 - 107 mmol/L 05/03/2025 4:02 AM EDT [facility] CO2, Plasma 37(H) 22 - 29 mmol/L 05/03/2025 4:02 AM EDT [facility] Anion Gap 9 6 - 16 mmol/L 05/03/2025 4:02 AM EDT [facility] Total Calcium, Plasma 9.0 8.9 - 10.2 mg/dL 05/03/2025 4:02 AM EDT [facility] eGFRcr 110.7 mL/min/1.7 3m*2 05/03/2025 4:02 AM EDT [facility] Comment:Reported eGFRcr in m L/min/1.73m2 is based the CKD-EPI 2020 equation that does not use a race coefficient. Blood Venous blood specimen / Unknown Venipuncture / Unknown 05/03/2025 3:16 AM EDT 05/03/2025 3:24 AM EDT us Marjorie Myers MD LAB BLOOD ORDERABLES Final Resul t Performing Organization Address City/[facility] Co de Phone Number [facility] [address] [place] [address] * (ABNORMAL) Magnesium, Plasma (05/03/2025 3:16 AM EDT) Magnesium, Plasma 1.7(L) 1.9 - 2.4 mg/dL 05/03/2025 4:02 AM EDT [facility] Blood Venous blood specimen / Unknown Venipuncture / Unknown 05/03/2025 3:16 AM EDT 05/03/2025 3:24 AM EDT us Marjorie Myers MD LAB BLOOD ORDERABLES Final Resul t Performing Organization Address [facility] de Phone Number [facility] [address] [place] [address] * Phosphorus, Plasma (05/03/2025 3:16 AM EDT) Phosphorus, Plasma 3.6 2.5 - 4.5 mg/dL 05/03/2025 4:02 AM EDT [facility] Blood Venous blood specimen / Unknown Venipuncture / Unknown 05/03/2025 3:16 AM EDT 05/03/2025 3:24 AM EDT us Marjorie Myers MD LAB BLOOD ORDERABLES Final Resul t Performing Organization Address City/[facility] Co de Phone Number [facility] [address] [place] [address] * Hepatitis B Core Total Antibody IgG,IgM (05/03/2025 3:16 AM EDT) Hepatitis B Core Total Antibody IgG,IgM Negative Negative 05/03/2025 4:28 AM EDT [facility] Blood Venous blood specimen / Unknown Venipuncture / Unknown 05/03/2025 3:16 AM EDT 05/03/2025 3:24 AM EDT us Diane Guzman MD LAB BLOOD ORDERABLES Final Result Performing Organization Address City/[facility] Co de Phone Number [facility] [address] [place] [address] * Hepatitis B Surface Antigen (05/03/2025 3:16 AM EDT) Pathologist [facility] Hepatitis B Surf Antigen Negative Negative 05/03/2025 4:28 AM EDT [facility] Blood Venous blood specimen / Unknown Venipuncture / Unknown 05/03/2025 3:16 AM EDT 05/03/2025 3:24 AM EDT us Diane Guzman MD LAB BLOOD ORDERABLES Final Result Performing Organization Address [facility] [place] [address] * Hepatitis B Surface Antibody, Quantitative (05/03/2025 3:16 AM EDT) Pathologist [facility] Hepatitis B Surface Antibody, Quantitative <8.00 NonReactiv e: <8, Grayzone: 8 - <12, Reactive: >= 12 mIU/mL 05/03/2025 4:28 AM EDT [facility] Comment: Nonreactive. Individual is considered not immune to HBV infection. Blood Venous blood specimen / Unknown Venipuncture / Unknown 05/03/2025 3:16 AM EDT 05/03/2025 3:24 AM EDT us Diane Guzman MD LAB BLOOD ORDERABLES Final Result Performing Organization Address [facility] Co de Phone Number [facility] [address] [place] [address] * Hepatitis A Antibody IgG (05/03/2025 3:16 AM EDT) [facility] Hepatitis A Antibody IgG Negative Negative 05/03/2025 4:28 AM EDT [facility] Blood Venous blood specimen / Unknown Venipuncture / Unknown 05/03/2025 3:16 AM EDT 05/03/2025 3:24 AM EDT Diane Guzman MD LAB BLOOD ORDERABLES Final Result [facility] [address] [place] [address] * (ABNORMAL) POCT glucose meter (05/02/2025 8:48 PM EDT) [facility] POCT Glucose 325(H) 74 - 99 mg/dL 05/02/2025 8:50 PM EDT [facility] Comment:Accuracy of [...] to the main labortory for testing. Comment 05/02/2025 8:50 PM EDT [facility]ALTH[facility] Liquefier ID Maribell Saeed 8:50 PM EDT [facility]ALTH[facility]ARE LAB Device ID [id number] 05/02/2025 8:50 PM EDT [facility]ALTH[facility]ARE [facility] Specimen Type POC Capillary 05/02/2025 8:50 PM EDT [facility] Blood Capillary blood specimen / Unknown 05/02/2025 8:48 PM EDT 05/02/2025 8:50 PM EDT us Diane Guzman MD LAB POINT OF CARE T EST DOCKED DEVICE UNSOLICITED RESULTS Final Result Performing Organization Address City/[facility]/ZIP Co de Phone Number HEALTHCARE LAB [address] [place] [address] * (ABNORMAL) POCT glucose meter (05/02/2025 4:30 PM EDT) [facility] POCT Glucose 250(H) 74 - 99 mg/dL 05/02/2025 4:32 PM EDT HEALTHCARE LAB Comment:Accuracy of a glucos e result obtained from a capillary whole blood specimen relies upon adequate, non-compromised capillary blood flow. If the capillary glucose result is not consistent with the patient's clinical signs and symptoms, glucose testing should be repeated with either an arterial or venous sample on the glucometer or sent to the main labortory for testing. Comment 05/02/2025 4:32 PM EDT HEALTHCARE LAB Liquefier ID Sebastián Kenny 4:32 PM EDT HEALTHCARE LAB Device ID [id number] 05/02/2025 4:32 PM EDT HEALTHCARE LAB Specimen Type POC Capillary 05/02/2025 4:32 PM EDT [facility] Blood Capillary blood specimen / Unknown 05/02/2025 4:30 PM EDT 05/02/2025 4:32 PM EDT Diane Guzman MD LAB POINT OF CARE T EST DOCKED DEVICE UNSOLICITED RESULTS Final Result [facility] [address] [place] [address] * Nasopharyngeal Respiratory Panel (05/02/2025 1:05 PM EDT) Nasopharyngeal Respiratory PCR Interpretation Not Detected for all analytes Not Detected for all analytes 05/02/2025 3:14 PM EDT [facility] Swab Nasopharyngeal structure / Unknown Non-blood Collection / Unknown 05/02/2025 1:05 PM EDT 05/02/2025 1:12 PM EDT Narrative [facility] - 05/02/2025 3:14 PM EDT This assay can detect Adenovirus, Coronavirus, Human Metapneumovirus, Human Rhino/Enterovirus, Influenza A, Influenza A H1, Influenza A H1 2009, Influenza A H3, Influenza B, Parainfluenza Virus 1, Parainfluenza Virus 2, Parainfluenza Virus 3, Parainfluenza Virus 4, Respiratory Syncytial Virus A, Respiratory Syncytial Virus B, Chlamydia pneumoniae, and Mycoplasma pneumoniae. Note: This assay does NOT detect SARS/CoV, novel Coronavirus 2019-nCoV, Bordetella pertussis or Bordetella parapertussis. Nasopharyngeal Respiratory PCR Panel is performed using the Cell[employer] ePlex instrument. This test is FDA approved for use with Nasopharyngeal swabs only. This test is used for clinical purposes. It should not be regarded as investigational or for research. The [facility] Clinical Microbiology Laboratory is certified under the Clinical Laboratory Improvement Amendments of 1988 (CLIA-88) as qualified to perform high complexity clinical laboratory testing. Diane Guzman MD LAB MICROBIOLOGY - GENERAL ORDERABLES Final Result Performing Organization Address City/[facility]/ZIP Co de Phone Number [facility] [address] [place] [address] * (ABNORMAL) POCT glucose meter (05/02/2025 12:08 PM EDT) [facility] POCT Glucose 278(H) 74 - 99 mg/dL 05/02/2025 12:10 PM EDT HEALTHCARE LAB Comment:Accuracy of a glucos e result obtained from a capillary whole blood specimen relies upon adequate, non-compromised capillary blood flow. If the capillary glucose result is not consistent with the patient's clinical signs and symptoms, glucose testing should be repeated with either an arterial or venous sample on the glucometer or sent to the main labortory for testing. Comment 05/02/2025 12:10 PM EDT HEALTHCARE LAB Liquefier ID Sebastián Kenny Amarjit 12:10 PM EDT HEALTHCARE LAB Device ID [id number] 05/02/2025 12:10 PM EDT HEALTHCARE LAB Specimen Type POC Capillary 05/02/2025 12:10 PM EDT [facility] Blood Capillary blood specimen / Unknown 05/02/2025 12:08 PM EDT 05/02/2025 12:10 PM EDT Diane Guzman MD LAB POINT OF CARE T EST DOCKED DEVICE UNSOLICITED RESULTS Final Result Performing Organization Address [facility] Co de Phone Number [facility] [address] [place] [address] * (ABNORMAL) POCT glucose meter (05/02/2025 8:11 AM EDT) [facility] POCT Glucose 283(H) 74 - 99 mg/dL 05/02/2025 8:12 AM EDT HEALTHCARE LAB Comment:Accuracy of a glucos e result obtained from a capillary whole blood specimen relies upon adequate, non-compromised capillary blood flow. If the capillary glucose result is not consistent with the patient's clinical signs and symptoms, glucose testing should be repeated with either an arterial or venous sample on the glucometer or sent to the main labortory for testing. Comment 05/02/2025 8:12 AM EDT HEALTHCARE LAB Liquefier ID EfraínSebastián 8:12 AM EDT HEALTHCARE LAB Device ID [id number] 05/02/2025 8:12 AM EDT HEALTHCARE LAB Specimen Type POC Capillary 05/02/2025 8:12 AM EDT [facility] Blood Capillary blood specimen / Unknown 05/02/2025 8:11 AM EDT 05/02/2025 8:12 AM EDT Diane Guzman MD LAB POINT OF CARE T EST DOCKED DEVICE UNSOLICITED RESULTS Final Result Performing Organization Address City/State/[facility] Co de Phone Number HEALTHCARE LAB [address] [place] [address] * (ABNORMAL) POCT glucose meter (05/02/2025 4:01 AM EDT) [facility] POCT Glucose 320(H) 74 - 99 mg/dL 05/02/2025 4:03 AM EDT HEALTHCARE LAB Comment:Accuracy of a glucos e result obtained from a capillary whole blood specimen relies upon adequate, non-compromised capillary blood flow. If the capillary glucose result is not consistent with the patient's clinical signs and symptoms, glucose testing should be repeated with either an arterial or venous sample on the glucometer or sent to the main labortory for testing. Comment 05/02/2025 4:03 AM EDT HEALTHCARE LAB Liquefier ID Stella Coleman 05/02/20 4:03 AM EDT HEALTHCARE LAB Device ID [id number] 05/02/2025 4:03 AM EDT HEALTHCARE LAB Specimen Type POC Capillary 05/02/2025 4:03 AM EDT [facility] Blood Capillary blood specimen / Unknown 05/02/2025 4:01 AM EDT 05/02/2025 4:03 AM EDT Marjorie Myers MD LAB POINT OF CARE TE ST DOCKED DEVICE UNSOLICITED RESULTS Final Result [facility] [address] [place] [id number] * (ABNORMAL) CBC and Differential (05/02/2025 3:10 AM EDT) WBC Count 7.39 3.70 - 10.30 10*3/uL LAB HEMATOLOGY METHOD 05/02/2025 3:23 AM EDT [facility] RBC Count 3.88(L) 4.60 - 6.10 10*6/uL LAB HEMATOLOGY METHOD 05/02/2025 3:23 AM EDT [facility] HGB 8.8(L) 13.7 - 17.5 g/dL LAB HEMATOLOGY METHOD 05/02/2025 3:23 AM EDT [facility] HCT 29.3(L) 40.0 - 51.0 % LAB HEMATOLOGY METHOD 05/02/2025 3:23 AM EDT [facility] Platelet Count 205 155 - 369 10*3/uL LAB HEMATOLOGY METHOD 05/02/2025 3:23 AM EDT [facility] MCV 76(L) 79 - 98 fL LAB HEMATOLOGY METHOD 05/02/2025 3:23 AM EDT [facility] MCH 22.7(L) 26.0 - 32.0 pg LAB HEMATOLOGY METHOD 05/02/2025 3:23 AM EDT [facility] MCHC 30.0(L) 30.7 - 35.5 g/dL LAB HEMATOLOGY METHOD 05/02/2025 3:23 AM EDT [facility] RDW 19.1(H) 11.5 - 14.5 % LAB HEMATOLOGY METHOD 05/02/2025 3:23 AM EDT [facility] MPV 8.5(L) 8.8 - 12.5 fL LAB HEMATOLOGY METHOD 05/02/2025 3:23 AM EDT [facility] nRBC 0.0 <=0.0 per 100 WBCs LAB HEMATOLOGY METHOD 05/02/2025 3:23 AM EDT [facility] Differential Type Automated LAB HEMATOLOGY METHOD 05/02/2025 3:23 AM EDT [facility] Neutrophils % 74 % LAB HEMATOLOGY METHOD 05/02/2025 3:23 AM EDT [facility] Lymphocytes % 13 % LAB HEMATOLOGY METHOD 05/02/2025 3:23 AM EDT [facility] Monocytes % 8 % LAB HEMATOLOGY METHOD 05/02/2025 3:23 AM EDT [facility] Eosinophils % 4 % LAB HEMATOLOGY METHOD 05/02/2025 3:23 AM EDT [facility] Basophils % 0 % LAB HEMATOLOGY METHOD 05/02/2025 3:23 AM EDT [facility] Immature Granulocytes % 1 % LAB HEMATOLOGY METHOD 05/02/2025 3:23 AM EDT [facility] Neutrophils Absolute 5.45 1.60 - 6.10 10*3/uL LAB HEMATOLOGY METHOD 05/02/2025 3:23 AM EDT [facility] Lymphocytes Absolute 0.96(L) 1.20 - 3.90 10*3/uL LAB HEMATOLOGY METHOD 05/02/2025 3:23 AM EDT [facility] Monocytes Absolute 0.62 0.30 - 0.90 10*3/uL LAB HEMATOLOGY METHOD 05/02/2025 3:23 AM EDT [facility] Eosinophils Absolute 0.30 0.00 - 0.50 10*3/uL LAB HEMATOLOGY METHOD 05/02/2025 3:23 AM EDT [facility] Basophils Absolute 0.01 0.00 - 0.10 10*3/uL LAB HEMATOLOGY METHOD 05/02/2025 3:23 AM EDT [facility] Immature Granulocytes Absolute 0.05 0.00 - 0.06 10*3/uL LAB HEMATOLOGY METHOD 05/02/2025 3:23 AM EDT [facility] Blood Venous blood specimen / Unknown Venipuncture / Unknown 05/02/2025 3:10 AM EDT 05/02/2025 3:14 AM EDT [facility] - 05/02/2025 3:23 AM EDT Therapeutic decision making should be based on absolute values, rather than percentages. us Yadana Oo MD LAB BLOOD ORDERABLES Final Resul t [facility] [address] [place] [address] * (ABNORMAL) Basic Metabolic Panel, Plasma (05/02/2025 3:10 AM EDT) Glucose, Plasma 358(H) 74 - 99 mg/dL 05/02/2025 3:45 AM EDT [facility] BUN, Plasma 12 7 - 21 mg/dL 05/02/2025 3:45 AM EDT [facility] Creatinine, Plasma 0.73 0.70 - 1.20 mg/dL 05/02/2025 3:45 AM EDT [facility] BUN/Creatinine Ratio 16 05/02/2025 3:45 AM EDT [facility] Sodium, Plasma 134(L) 136 - 145 mmol/L 05/02/2025 3:45 AM EDT [facility] Potassium, Plasma 3.3(L) 3.6 - 4.9 mmol/L 05/02/2025 3:45 AM EDT [facility] Chloride, Plasma 90(L) 97 - 107 mmol/L 05/02/2025 3:45 AM EDT [facility] CO2, Plasma 37(H) 22 - 29 mmol/L 05/02/2025 3:45 AM EDT [facility] Anion Gap 7 6 - 16 mmol/L 05/02/2025 3:45 AM EDT [facility] Total Calcium, Plasma 8.7(L) 8.9 - 10.2 mg/dL 05/02/2025 3:45 AM EDT [facility] eGFRcr 112.9 mL/min/1.7 3m*2 05/02/2025 3:45 AM EDT [facility] Comment:Reported eGFRcr in m L/min/1.73m2 is based the CKD-EPI 2020 equation that does not use a race coefficient. Blood Venous blood specimen / Unknown Venipuncture / Unknown 05/02/2025 3:10 AM EDT 05/02/2025 3:15 AM EDT us Marjorie Myers MD LAB BLOOD ORDERABLES Final Resul t Performing Organization Address City/[facility]/ZIP Co de Phone Number [facility] [address] [place] [address] * (ABNORMAL) Magnesium, Plasma (05/02/2025 3:10 AM EDT) Magnesium, Plasma 1.6(L) 1.9 - 2.4 mg/dL 05/02/2025 3:45 AM EDT [facility] Blood Venous blood specimen / Unknown Venipuncture / Unknown 05/02/2025 3:10 AM EDT 05/02/2025 3:15 AM EDT us Marjorie Myers MD LAB BLOOD ORDERABLES Final Resul t Performing Organization Address City/[facility]/ZIP Co de Phone Number [facility] [address] [place] [address] * Phosphorus, Plasma (05/02/2025 3:10 AM EDT) Phosphorus, Plasma 3.0 2.5 - 4.5 mg/dL 05/02/2025 3:45 AM EDT [facility] Blood Venous blood specimen / Unknown Venipuncture / Unknown 05/02/2025 3:10 AM EDT 05/02/2025 3:15 AM EDT Result Shannon Myers MD LAB BLOOD ORDERABLES Final Resul t Performing Organization Address City/[facility]/ZIP Co de Phone Number [facility] [address] [place] [address] * Creatine Kinase (CK), Total (05/02/2025 3:10 AM EDT) Creatine Kinase, Plasma 50 49 - 320 U/L 05/02/2025 3:45 AM EDT [facility] Blood Venous blood specimen / Unknown Venipuncture / Unknown 05/02/2025 3:10 AM EDT 05/02/2025 3:15 AM EDT us Marjorie Myers MD LAB BLOOD ORDERABLES Final Resul t Performing Organization Address City/[facility]/ZIP Co de Phone Number [facility] [address] [place] [address] * (ABNORMAL) POCT glucose meter (05/01/2025 8:26 PM EDT) [facility] POCT Glucose 316(H) 74 - 99 mg/dL 05/01/2025 8:27 PM EDT [facility] Comment:Accuracy of [...] to the main labortory for testing. Comment 05/01/2025 8:27 PM EDT HEALTHCARE LAB Liquefier ID Stella Coleman 05/01/20 8:27 PM EDT HEALTHCARE LAB Device ID [id number] 05/01/2025 8:27 PM EDT HEALTH[facility]ARE LAB Specimen Type POC Capillary 05/01/2025 8:27 PM EDT [facility] Blood Capillary blood specimen / Unknown 05/01/2025 8:26 PM EDT 05/01/2025 8:27 PM EDT Marjorie Myers MD LAB POINT OF CARE TE ST DOCKED DEVICE UNSOLICITED RESULTS Final Result Performing Organization Address [facility] Co de Phone Number HEALTHCARE LAB [address] [place] [address] * (ABNORMAL) POCT glucose meter (05/01/2025 5:55 PM EDT) [facility] POCT Glucose 294(H) 74 - 99 mg/dL 05/01/2025 5:57 PM EDT [facility] Comment:Accuracy of [...] to the main labortory for testing. Comment 05/01/2025 5:57 PM EDT HEALTHCARE [facility] Liquefier ID Sebastián Kenny 5:57 PM EDT HEALTHCARE LAB Device ID [id number] 05/01/2025 5:57 PM EDT [facility] Specimen Type POC Capillary 05/01/2025 5:57 PM EDT [facility]ARE [facility] Blood Capillary blood specimen / Unknown 05/01/2025 5:55 PM EDT 05/01/2025 5:57 PM EDT Marjorie Myers MD LAB POINT OF CARE TE ST DOCKED DEVICE UNSOLICITED RESULTS Final Result Performing Organization Address City/[facility] Co de Phone Number [facility] [address] [place] [address] * (ABNORMAL) POCT glucose meter (05/01/2025 11:51 AM EDT) [facility] POCT Glucose 301(H) 74 - 99 mg/dL 05/01/2025 11:53 AM EDT [facility] Comment:Accuracy of [...] to the main labortory for testing. Comment 05/01/2025 11:53 AM EDT [facility] Liquefier ID Sebastián Kenny 11:53 AM EDT HEALTHCARE LAB Device ID [id number] 05/01/2025 11:53 AM EDT [facility] Specimen Type POC Capillary 05/01/2025 11:53 AM EDT [facility]ALTH[facility]ARE [facility] Blood Capillary blood specimen / Unknown 05/01/2025 11:51 AM EDT 05/01/2025 11:53 AM EDT Marjorie Myers MD LAB POINT OF CARE TE ST DOCKED DEVICE UNSOLICITED RESULTS Final Result Performing Organization Address City/[facility] Co de Phone Number [facility] [address] [place] [address] * (ABNORMAL) POCT glucose meter (05/01/2025 9:13 AM EDT) [facility] POCT Glucose 252(H) 74 - 99 mg/dL 05/01/2025 9:15 AM EDT [facility] Comment:Accuracy of a glucos e result obtained from a capillary whole blood specimen relies upon adequate, non-compromised capillary blood flow. If the capillary glucose result is not consistent with the patient's clinical signs and symptoms, glucose testing should be repeated with either an arterial or venous sample on the glucometer or sent to the main labortory for testing. Comment 05/01/2025 9:15 AM EDT HEALTH[facility]ARE [facility] Liquefier ID Francisco Javier Martin 05/01/2025 9:15 AM EDT HEALTHCARE LAB Device ID [id number] 05/01/2025 9:15 AM EDT HEALTH[facility]ARE LAB Specimen Type POC Capillary 05/01/2025 9:15 AM EDT [facility]ALTH[facility] Blood Capillary blood specimen / Unknown 05/01/2025 9:13 AM EDT 05/01/2025 9:15 AM EDT Marjorie Myers MD LAB POINT OF CARE TE ST DOCKED DEVICE UNSOLICITED RESULTS Final Result [facility] [address] [place] [address] * Surgical Pathology Exam (05/01/2025 8:13 AM EDT) Case Report Surgical Pathology Case: [id number] Authorizing Provider: Mary Vicente MD Collected: 05/01/2025 0813 Ordering Location: [facility] Received: 05/01/2025 0917 Pathologist: Vidya Ly MD Specimens: A) - Toe, Right, R 5th toe B) - Toe, Right, R 5th toe margin 05/09/2025 9:56 AM EDT [facility] Correction History Case amended to provide diagnosis after final decal sections received 05/09/2025 9:56 AM EDT [facility] Comment:These results have b een appended to a previously final verified report. Final Diagnosis A. RIGHT FIFTH TOE, AMPUTATION: - ULCER WITH SUPPURATIVE INFLAMMATION, GANGRENOUS NECROSIS, AND UNDERLYING ACUTE OSTEOMYELITIS. B. RIGHT FIFTH TOE MARGIN, RESECTION: - NO ACUTE OSTEOMYELITIS IDENTIFIED. 05/09/2025 9:56 AM EDT [facility] Amendment electronically signed by Vidya Ly MD on 05/09/2025 at 0956 EDT at 1233 EDT Comment:Corrected result: Pr eviously reported as [Previous value contains rich text formatting which cannot be displayed here] (see Result History) on 05/05/2025 at 1233 EDT. Clinical Information Other chronic osteomyelitis of right foot (CMS/[facility]) [M86.671] 05/09/2025 9:56 AM EDT [facility] Gross Description A. R 5TH TOE The specimen is received fresh and placed in formalin, labeled R 5th toe , and consists of a 13.6 x 6.1 x 2.1 cm 5th toe with shaved portion of lateral right foot. The toenail is identified. On the entire lateral aspect of the skin surface, there is an 11.5 x 5.1 x 1.6 cm baker-white to black, necrotic, and gaping wound. The wound extends into the underlying bone. Composite Bond Worker sections are submitted as follows: A1-A2: Necrotic lateral skin A3: Bone underlying gaping wound, following decalcification A4: Bone margin, following decalcification BLAS Kwok ([facility]) B. R 5TH TOE MARGIN The specimen is received fresh and placed in formalin, labeled R 5th toe MARGIN , and consists of a 2.8 x 2.8 x 0.6 cm aggregate of hemorrhagic bony fragments. The specimen is entirely submitted in cassette B1, following decalcification. Cold Time: 25m BLAS Kwok ([facility]) 05/09/2025 9:56 AM EDT [facility] Note: 05/09/2025 9:56 AM EDT [facility] Comment:Corrected result: Pr eviously reported as [Previous value contains rich text formatting which cannot be displayed here] (see Result History) on 05/05/2025 at 1233 EDT. Amputation Structure of toe of right foot / Unknown 05/01/2025 8:13 AM EDT 05/01/2025 9:17 AM EDT Comment:Pre-op diagnosis: Other chronic osteomyelitis of right foot (CMS/HCC) [M86.671] Specimen obtained by amputation (specimen) Structure of toe of right foot / Unknown 05/01/2025 8:52 AM EDT 05/01/2025 9:17 AM EDT Comment:Pre-op diagnosis: Other chronic osteomyelitis of right foot (CMS/HCC) [M86.671] us Mary Vicente MD LAB PATHOLOGY ORDERABLES Edited Result - Final Performing Organization Address [facility] Co de Phone Number [facility] [address] [place] [address] * Type and Screen (05/01/2025 6:49 AM EDT) Pathologist [facility] ABO/Rh O Positive 05/01/2025 6:53 AM EDT BLOOD BANK Antibody Screen Negative 05/01/2025 6:53 AM EDT BLOOD BANK Specimen Expiration 05/04/2025 23:59 05/01/2025 6:53 AM EDT BLOOD BANK Blood Venous blood specimen / Unknown Venipuncture / Unknown 05/01/2025 6:49 AM EDT 05/01/2025 6:53 AM EDT us Yanna Calhoun DO LAB BLOOD BANK TEST ORDERA BLES Final Result Performing Organization Address [facility] de Phone Number BLOOD BANK [address] * (ABNORMAL) POCT glucose meter (05/01/2025 6:48 AM EDT) Pathologist [facility] POCT Glucose 222(H) 74 - 99 mg/dL 05/01/2025 6:50 AM EDT [facility] Comment:Accuracy of a glucos e result obtained from a capillary whole blood specimen relies upon adequate, non-compromised capillary blood flow. If the capillary glucose result is not consistent with the patient's clinical signs and symptoms, glucose testing should be repeated with either an arterial or venous sample on the glucometer or sent to the main labortory for testing. Comment 05/01/2025 6:50 AM EDT [facility] Liquefier ID Emelina Romero 6:50 AM EDT HEALTHCARE LAB Device ID [id number] 05/01/2025 6:50 AM EDT HEALTHCARE LAB Specimen Type POC Venous 05/01/2025 6:50 AM EDT [facility] Blood Venous blood specimen / Unknown 05/01/2025 6:48 AM EDT 05/01/2025 6:50 AM EDT Marjorie Myers MD LAB POINT OF CARE TE ST DOCKED DEVICE UNSOLICITED RESULTS Final Result [facility] [address] [place] [address] * Creatine Kinase (CK), Total (05/01/2025 2:14 AM EDT) Pathologist [facility] Creatine Kinase, Plasma 60 49 - 320 U/L 05/01/2025 2:53 AM EDT [facility] Blood Venous blood specimen / Unknown Venipuncture / Unknown 05/01/2025 2:14 AM EDT 05/01/2025 2:26 AM EDT Marjorie Myers MD LAB BLOOD ORDERABLES Final Resul t [facility] [address] [place] [address] * (ABNORMAL) CBC and Differential (05/01/2025 2:14 AM EDT) WBC Count 6.96 3.70 - 10.30 10*3/uL LAB HEMATOLOGY METHOD 05/01/2025 2:37 AM EDT [facility] RBC Count 4.23(L) 4.60 - 6.10 10*6/uL LAB HEMATOLOGY METHOD 05/01/2025 2:37 AM EDT [facility] HGB 9.8(L) 13.7 - 17.5 g/dL LAB HEMATOLOGY METHOD 05/01/2025 2:37 AM EDT [facility] HCT 32.5(L) 40.0 - 51.0 % LAB HEMATOLOGY METHOD 05/01/2025 2:37 AM EDT [facility] Platelet Count 218 155 - 369 10*3/uL LAB HEMATOLOGY METHOD 05/01/2025 2:37 AM EDT [facility] MCV 77(L) 79 - 98 fL LAB HEMATOLOGY METHOD 05/01/2025 2:37 AM EDT [facility] MCH 23.2(L) 26.0 - 32.0 pg LAB HEMATOLOGY METHOD 05/01/2025 2:37 AM EDT [facility] MCHC 30.2(L) 30.7 - 35.5 g/dL LAB HEMATOLOGY METHOD 05/01/2025 2:37 AM EDT [facility] RDW 19.1(H) 11.5 - 14.5 % LAB HEMATOLOGY METHOD 05/01/2025 2:37 AM EDT [facility] MPV 8.4(L) 8.8 - 12.5 fL LAB HEMATOLOGY METHOD 05/01/2025 2:37 AM EDT [facility] nRBC 0.0 <=0.0 per 100 WBCs LAB HEMATOLOGY METHOD 05/01/2025 2:37 AM EDT [facility] Differential Type Automated LAB HEMATOLOGY METHOD 05/01/2025 2:37 AM EDT [facility] Neutrophils % 76 % LAB HEMATOLOGY METHOD 05/01/2025 2:37 AM EDT [facility] Lymphocytes % 11 % LAB HEMATOLOGY METHOD 05/01/2025 2:37 AM EDT [facility] Monocytes % 8 % LAB HEMATOLOGY METHOD 05/01/2025 2:37 AM EDT [facility] Eosinophils % 4 % LAB HEMATOLOGY METHOD 05/01/2025 2:37 AM EDT [facility] Basophils % 0 % LAB HEMATOLOGY METHOD 05/01/2025 2:37 AM EDT [facility] Immature Granulocytes % 1 % LAB HEMATOLOGY METHOD 05/01/2025 2:37 AM EDT [facility] Neutrophils Absolute 5.26 1.60 - 6.10 10*3/uL LAB HEMATOLOGY METHOD 05/01/2025 2:37 AM EDT [facility] Lymphocytes Absolute 0.79(L) 1.20 - 3.90 10*3/uL LAB HEMATOLOGY METHOD 05/01/2025 2:37 AM EDT [facility] Monocytes Absolute 0.57 0.30 - 0.90 10*3/uL LAB HEMATOLOGY METHOD 05/01/2025 2:37 AM EDT [facility] Eosinophils Absolute 0.28 0.00 - 0.50 10*3/uL LAB HEMATOLOGY METHOD 05/01/2025 2:37 AM EDT [facility] Basophils Absolute 0.02 0.00 - 0.10 10*3/uL LAB HEMATOLOGY METHOD 05/01/2025 2:37 AM EDT [facility] Immature Granulocytes Absolute 0.04 0.00 - 0.06 10*3/uL LAB HEMATOLOGY METHOD 05/01/2025 2:37 AM EDT [facility] Blood Venous blood specimen / Unknown Venipuncture / Unknown 05/01/2025 2:14 AM EDT 05/01/2025 2:26 AM EDT Narrative [facility] - 05/01/2025 2:37 AM EDT Therapeutic decision making should be based on absolute values, rather than percentages. us Marjorie Myers MD LAB BLOOD ORDERABLES Final Resul t [facility] [address] [place] [address] * (ABNORMAL) Basic Metabolic Panel, Plasma (05/01/2025 2:14 AM EDT) Glucose, Plasma 266(H) 74 - 99 mg/dL 05/01/2025 2:53 AM EDT [facility] BUN, Plasma 9 7 - 21 mg/dL 05/01/2025 2:53 AM EDT [facility] Creatinine, Plasma 0.71 0.70 - 1.20 mg/dL 05/01/2025 2:53 AM EDT [facility] BUN/Creatinine Ratio 13 05/01/2025 2:53 AM EDT [facility] Sodium, Plasma 137 136 - 145 mmol/L 05/01/2025 2:53 AM EDT [facility] Potassium, Plasma 3.4(L) 3.6 - 4.9 mmol/L 05/01/2025 2:53 AM EDT [facility] Chloride, Plasma 91(L) 97 - 107 mmol/L 05/01/2025 2:53 AM EDT [facility] CO2, Plasma 36(H) 22 - 29 mmol/L 05/01/2025 2:53 AM EDT [facility] Anion Gap 10 6 - 16 mmol/L 05/01/2025 2:53 AM EDT [facility] Total Calcium, Plasma 8.6(L) 8.9 - 10.2 mg/dL 05/01/2025 2:53 AM EDT [facility] eGFRcr 113.9 mL/min/1.7 3m*2 05/01/2025 2:53 AM EDT [facility] Comment:Reported eGFRcr in m L/min/1.73m2 is based the CKD-EPI 2020 equation that does not use a race coefficient. Blood Venous blood specimen / Unknown Venipuncture / Unknown 05/01/2025 2:14 AM EDT 05/01/2025 2:26 AM EDT Marjorie Myers MD LAB BLOOD ORDERABLES Final Resul t Performing Organization Address City/[facility]/ZIP Co de Phone Number [facility] [address] [place] [address] * (ABNORMAL) Magnesium, Plasma (05/01/2025 2:14 AM EDT) Magnesium, Plasma 1.8(L) 1.9 - 2.4 mg/dL 05/01/2025 2:53 AM EDT [facility] Blood Venous blood specimen / Unknown Venipuncture / Unknown 05/01/2025 2:14 AM EDT 05/01/2025 2:26 AM EDT us Marjorie Myers MD LAB BLOOD ORDERABLES Final Resul t [facility] [address] [place] [address] * Phosphorus, Plasma (05/01/2025 2:14 AM EDT) Phosphorus, Plasma 3.0 2.5 - 4.5 mg/dL 05/01/2025 2:53 AM EDT [facility] Blood Venous blood specimen / Unknown Venipuncture / Unknown 05/01/2025 2:14 AM EDT 05/01/2025 2:26 AM EDT Marjorie Myers MD LAB BLOOD ORDERABLES Final Resul t Performing Organization Address City/[facility]/ZIP Co de Phone Number [facility] [address] [place] [address] * (ABNORMAL) POCT glucose meter (04/30/2025 8:21 PM EDT) POCT Glucose 226(H) 74 - 99 mg/dL 04/30/2025 8:23 PM EDT [facility] Comment:Accuracy of [...] to the main labortory for testing. Comment 04/30/2025 8:23 PM EDT [facility] Liquefier ID Sandra Perez 04/30/20 8:23 PM EDT [facility] Device ID [id number] 04/30/2025 8:23 PM EDT [facility] Specimen Type POC Capillary 04/30/2025 8:23 PM EDT [facility] Blood Capillary blood specimen / Unknown 04/30/2025 8:21 PM EDT 04/30/2025 8:23 PM EDT Marjorie Myers MD LAB POINT OF CARE TE ST DOCKED DEVICE UNSOLICITED RESULTS Final Result [facility] [address] [place] [address] * (ABNORMAL) POCT glucose meter (04/30/2025 4:19 PM EDT) POCT Glucose 173(H) 74 - 99 mg/dL 04/30/2025 4:54 PM EDT [facility] Comment:Accuracy of [...] to the main labortory for testing. Comment 04/30/2025 4:54 PM EDT [facility] Liquefier ID Priyanka Negrete 04/30/20 4:54 PM EDT [facility] Device ID [id number] 04/30/2025 4:54 PM EDT [facility] Specimen Type POC Capillary 04/30/2025 4:54 PM EDT [facility] Blood Capillary blood specimen / Unknown 04/30/2025 4:19 PM EDT 04/30/2025 4:54 PM EDT us Marjorie Myers MD LAB POINT OF CARE TE ST DOCKED DEVICE UNSOLICITED RESULTS Final Result Performing Organization Address [facility] Co de Phone Number [facility] [address] [place] [address] * (ABNORMAL) POCT glucose meter (04/30/2025 12:11 PM EDT) [facility] POCT Glucose 226(H) 74 - 99 mg/dL 04/30/2025 12:50 PM EDT [facility] Comment:Accuracy of [...] to the main labortory for testing. Comment 04/30/2025 12:50 PM EDT [facility] Liquefier ID Priyanka Negrete 04/30/20 12:50 PM EDT [facility] Device ID [id number] 04/30/2025 12:50 PM EDT [facility] Specimen Type POC Capillary 04/30/2025 12:50 PM EDT [facility] Blood Capillary blood specimen / Unknown 04/30/2025 12:11 PM EDT 04/30/2025 12:50 PM EDT us Marjorie Myers MD LAB POINT OF CARE TE ST DOCKED DEVICE UNSOLICITED RESULTS Final Result Performing Organization Address City/[facility]/ZIP Co de Phone Number [facility] [address] [place] [address] * (ABNORMAL) POCT glucose meter (04/30/2025 8:18 AM EDT) [facility] POCT Glucose 212(H) 74 - 99 mg/dL 04/30/2025 8:55 AM EDT [facility] Comment:Accuracy of a glucos e result obtained from a capillary whole blood specimen relies upon adequate, non-compromised capillary blood flow. If the capillary glucose result is not consistent with the patient's clinical signs and symptoms, glucose testing should be repeated with either an arterial or venous sample on the glucometer or sent to the main labortory for testing. Comment 04/30/2025 8:55 AM EDT [facility] Liquefier ID Priyanka Negrete 04/30/20 8:55 AM EDT [facility] Device ID [id number] 04/30/2025 8:55 AM EDT [facility] Specimen Type POC Capillary 04/30/2025 8:55 AM EDT [facility] Blood Capillary blood specimen / Unknown 04/30/2025 8:18 AM EDT 04/30/2025 8:55 AM EDT Marjorie Myers MD LAB POINT OF CARE TE ST DOCKED DEVICE UNSOLICITED RESULTS Final Result [facility] [address] [place] [address] * (ABNORMAL) CBC and Differential (04/30/2025 3:19 AM EDT) [facility] WBC Count 8.84 3.70 - 10.30 10*3/uL LAB HEMATOLOGY METHOD 04/30/2025 3:35 AM EDT [facility] RBC Count 4.31(L) 4.60 - 6.10 10*6/uL LAB HEMATOLOGY METHOD 04/30/2025 3:35 AM EDT [facility] HGB 9.6(L) 13.7 - 17.5 g/dL LAB HEMATOLOGY METHOD 04/30/2025 3:35 AM EDT [facility] HCT 32.6(L) 40.0 - 51.0 % LAB HEMATOLOGY METHOD 04/30/2025 3:35 AM EDT [facility] Platelet Count 245 155 - 369 10*3/uL LAB HEMATOLOGY METHOD 04/30/2025 3:35 AM EDT [facility] MCV 76(L) 79 - 98 fL LAB HEMATOLOGY METHOD 04/30/2025 3:35 AM EDT [facility] MCH 22.3(L) 26.0 - 32.0 pg LAB HEMATOLOGY METHOD 04/30/2025 3:35 AM EDT [facility] MCHC 29.4(L) 30.7 - 35.5 g/dL LAB HEMATOLOGY METHOD 04/30/2025 3:35 AM EDT [facility] RDW 19.1(H) 11.5 - 14.5 % LAB HEMATOLOGY METHOD 04/30/2025 3:35 AM EDT [facility] MPV 8.5(L) 8.8 - 12.5 fL LAB HEMATOLOGY METHOD 04/30/2025 3:35 AM EDT [facility] nRBC 0.0 <=0.0 per 100 WBCs LAB HEMATOLOGY METHOD 04/30/2025 3:35 AM EDT [facility] Differential Type Automated LAB HEMATOLOGY METHOD 04/30/2025 3:35 AM EDT [facility] Neutrophils % 78 % LAB HEMATOLOGY METHOD 04/30/2025 3:35 AM EDT [facility] Lymphocytes % 11 % LAB HEMATOLOGY METHOD 04/30/2025 3:35 AM EDT [facility] Monocytes % 7 % LAB HEMATOLOGY METHOD 04/30/2025 3:35 AM EDT [facility] Eosinophils % 3 % LAB HEMATOLOGY METHOD 04/30/2025 3:35 AM EDT [facility] Basophils % 0 % LAB HEMATOLOGY METHOD 04/30/2025 3:35 AM EDT [facility] Immature Granulocytes % 1 % LAB HEMATOLOGY METHOD 04/30/2025 3:35 AM EDT [facility] Neutrophils Absolute 6.90(H) 1.60 - 6.10 10*3/uL LAB HEMATOLOGY METHOD 04/30/2025 3:35 AM EDT [facility] Lymphocytes Absolute 0.95(L) 1.20 - 3.90 10*3/uL LAB HEMATOLOGY METHOD 04/30/2025 3:35 AM EDT [facility] Monocytes Absolute 0.64 0.30 - 0.90 10*3/uL LAB HEMATOLOGY METHOD 04/30/2025 3:35 AM EDT [facility] Eosinophils Absolute 0.29 0.00 - 0.50 10*3/uL LAB HEMATOLOGY METHOD 04/30/2025 3:35 AM EDT [facility] Basophils Absolute 0.02 0.00 - 0.10 10*3/uL LAB HEMATOLOGY METHOD 04/30/2025 3:35 AM EDT [facility] Immature Granulocytes Absolute 0.04 0.00 - 0.06 10*3/uL LAB HEMATOLOGY METHOD 04/30/2025 3:35 AM EDT [facility] Blood Venous blood specimen / Unknown Venipuncture / Unknown 04/30/2025 3:19 AM EDT 04/30/2025 3:26 AM EDT Narrative [facility] - 04/30/2025 3:35 AM EDT Therapeutic decision making should be based on absolute values, rather than percentages. us Marjorie Myers MD LAB BLOOD ORDERABLES Final Resul t [facility] [address] [place] [address] * (ABNORMAL) Basic Metabolic Panel, Plasma (04/30/2025 3:19 AM EDT) Glucose, Plasma 254(H) 74 - 99 mg/dL 04/30/2025 3:56 AM EDT [facility] BUN, Plasma 11 7 - 21 mg/dL 04/30/2025 3:56 AM EDT [facility] Creatinine, Plasma 0.77 0.70 - 1.20 mg/dL 04/30/2025 3:56 AM EDT [facility] BUN/Creatinine Ratio 14 04/30/2025 3:56 AM EDT [facility] Sodium, Plasma 137 136 - 145 mmol/L 04/30/2025 3:56 AM EDT [facility] Potassium, Plasma 3.3(L) 3.6 - 4.9 mmol/L 04/30/2025 3:56 AM EDT [facility] Chloride, Plasma 91(L) 97 - 107 mmol/L 04/30/2025 3:56 AM EDT [facility] CO2, Plasma 36(H) 22 - 29 mmol/L 04/30/2025 3:56 AM EDT [facility] Anion Gap 10 6 - 16 mmol/L 04/30/2025 3:56 AM EDT [facility] Total Calcium, Plasma 8.7(L) 8.9 - 10.2 mg/dL 04/30/2025 3:56 AM EDT [facility] eGFRcr 111.1 mL/min/1.7 3m*2 04/30/2025 3:56 AM EDT [facility] Comment:Reported eGFRcr in m L/min/1.73m2 is based the CKD-EPI 2020 equation that does not use a race coefficient. Blood Venous blood specimen / Unknown Venipuncture / Unknown 04/30/2025 3:19 AM EDT 04/30/2025 3:26 AM EDT Marjorie Myers MD LAB BLOOD ORDERABLES Final Resul t Performing Organization Address City/[facility]/ZIP Co de Phone Number [facility] [address] [place] [address] * (ABNORMAL) Magnesium, Plasma (04/30/2025 3:19 AM EDT) Magnesium, Plasma 1.5(L) 1.9 - 2.4 mg/dL 04/30/2025 3:56 AM EDT [facility] Blood Venous blood specimen / Unknown Venipuncture / Unknown 04/30/2025 3:19 AM EDT 04/30/2025 3:26 AM EDT Marjorie Myers MD LAB BLOOD ORDERABLES Final Resul t [facility] [address] [place] [address] * Phosphorus, Plasma (04/30/2025 3:19 AM EDT) Phosphorus, Plasma 2.7 2.5 - 4.5 mg/dL 04/30/2025 3:56 AM EDT [facility] Blood Venous blood specimen / Unknown Venipuncture / Unknown 04/30/2025 3:19 AM EDT 04/30/2025 3:26 AM EDT Marjorie Myers MD LAB BLOOD ORDERABLES Final Resul t Performing Organization Address City/[facility]/ZIP Co de Phone Number [facility] [address] [place] [address] * (ABNORMAL) POCT glucose meter (04/29/2025 7:38 PM EDT) POCT Glucose 191(H) 74 - 99 mg/dL 04/29/2025 9:20 PM EDT [facility] Comment:Accuracy of [...] to the main labortory for testing. Comment 04/29/2025 9:20 PM EDT [facility] Liquefier ID Ervin Du V 025 9:20 PM EDT [facility] Device ID [id number] 04/29/2025 9:20 PM EDT [facility] Specimen Type POC Capillary 04/29/2025 9:20 PM EDT [facility] Blood Capillary blood specimen / Unknown 04/29/2025 7:38 PM EDT 04/29/2025 9:20 PM EDT Marjorie Myers MD LAB POINT OF CARE TE ST DOCKED DEVICE UNSOLICITED RESULTS Final Result Performing Organization Address City/[facility]/ZIP Co de Phone Number [facility] [address] [place] [address] * (ABNORMAL) POCT glucose meter (04/29/2025 5:21 PM EDT) POCT Glucose 241(H) 74 - 99 mg/dL 04/29/2025 5:23 PM EDT [facility] Comment:Accuracy of [...] to the main labortory for testing. Comment 04/29/2025 5:23 PM EDT [facility] Liquefier ID Rocio Dozier 04/29/20 5:23 PM EDT [facility] Device ID [id number] 04/29/2025 5:23 PM EDT [facility] Specimen Type POC Capillary 04/29/2025 5:23 PM EDT [facility] Blood Capillary blood specimen / Unknown 04/29/2025 5:21 PM EDT 04/29/2025 5:23 PM EDT us Marjorie Myers MD LAB POINT OF CARE TE ST DOCKED DEVICE UNSOLICITED RESULTS Final Result Performing Organization Address City/State/[facility] Co de Phone Number [facility] [address] [place] [address] * (ABNORMAL) POCT glucose meter (04/29/2025 11:15 AM EDT) [facility] POCT Glucose 204(H) 74 - 99 mg/dL 04/29/2025 11:17 AM EDT [facility] Comment:Accuracy of [...] to the main labortory for testing. Comment 04/29/2025 11:17 AM EDT [facility] Liquefier ID Rocio Dozier 04/29/20 11:17 AM EDT [facility] LAB Device ID [id number] 04/29/2025 11:17 AM EDT [facility] Specimen Type POC Capillary 04/29/2025 11:17 AM EDT [facility] Blood Capillary blood specimen / Unknown 04/29/2025 11:15 AM EDT 04/29/2025 11:17 AM EDT us Marjorie Myers MD LAB POINT OF CARE TE ST DOCKED DEVICE UNSOLICITED RESULTS Final Result Performing Organization Address City/[facility] Co de Phone Number [facility] [address] [place] [address] * (ABNORMAL) POCT glucose meter (04/29/2025 7:13 AM EDT) POCT Glucose 269(H) 74 - 99 mg/dL 04/29/2025 7:14 AM EDT [facility] Comment:Accuracy of a glucos e result obtained from a capillary whole blood specimen relies upon adequate, non-compromised capillary blood flow. If the capillary glucose result is not consistent with the patient's clinical signs and symptoms, glucose testing should be repeated with either an arterial or venous sample on the glucometer or sent to the main labortory for testing. Comment 04/29/2025 7:14 AM EDT [facility] Liquefier ID Rocio Dozier 04/29/20 7:14 AM EDT [facility] Device ID [id number] 04/29/2025 7:14 AM EDT [facility] Specimen Type POC Capillary 04/29/2025 7:14 AM EDT [facility] Blood Capillary blood specimen / Unknown 04/29/2025 7:13 AM EDT 04/29/2025 7:14 AM EDT us Marjorie Myers MD LAB POINT OF CARE TE ST DOCKED DEVICE UNSOLICITED RESULTS Final Result Performing Organization Address City/[facility] Co de Phone Number [facility] [address] [place] [address] * Folate (04/29/2025 3:04 AM EDT) Pathologist [facility] Folate, Serum 10.5 >4.6 ng/mL 04/29/2025 4:05 AM EDT [facility] Blood Venous blood specimen / Unknown Venipuncture / Unknown 04/29/2025 3:04 AM EDT 04/29/2025 3:20 AM EDT us Sy De La Fuente FITTING ROOM OPERATOR, DNP LAB BLOOD ORDERABLES Fin al Result Performing Organization Address City/[facility]/ZIP Co de Phone Number [facility] [address] [place] [address] * Vitamin B12 (04/29/2025 3:04 AM EDT) Vitamin B12, Serum 338 210 - 1,033 pg/mL 04/29/2025 4:06 AM EDT [facility] Blood Venous blood specimen / Unknown Venipuncture / Unknown 04/29/2025 3:04 AM EDT 04/29/2025 3:20 AM EDT Sy De La Fuente FITTING ROOM OPERATOR, DNP LAB BLOOD ORDERABLES Fin al Result [facility] [address] [place] [address] * (ABNORMAL) Iron & Total Iron Binding Capacity, Plasma (Includes Transferrin) (04/29/2025 3:04 AM EDT) Iron, Plasma 36(L) 50 - 170 ug/dL 04/29/2025 3:55 AM EDT [facility] Transferrin, Plasma 197(L) 200 - 360 mg/dL 04/29/2025 3:55 AM EDT [facility] Total Iron Binding Capacity, Plasma 246 240 - 450 ug/mL 04/29/2025 3:55 AM EDT [facility] Transferrin Saturation 15 14 - 50 % 04/29/2025 3:55 AM EDT [facility] Blood Venous blood specimen / Unknown Venipuncture / Unknown 04/29/2025 3:04 AM EDT 04/29/2025 3:19 AM EDT us Sy De La Fuente FITTING ROOM OPERATOR, DNP LAB BLOOD ORDERABLES Fin al Result [facility] [address] [place] [id number] * Ferritin (04/29/2025 3:04 AM EDT) Ferritin, Serum 40 20 - 400 ng/mL 04/29/2025 4:06 AM EDT [facility] Blood Venous blood specimen / Unknown Venipuncture / Unknown 04/29/2025 3:04 AM EDT 04/29/2025 3:20 AM EDT us Sy De La Fuente APRN, DNP LAB BLOOD ORDERABLES Fin al Result Performing Organization Address City/[facility]/ZIP Co de Phone Number [facility] [address] [place] [address] * Cortisol (04/29/2025 3:04 AM EDT) Cortisol 2.80 Before 10am: 3.7 - 19.4. After 5pm: 2.9 - 17.3 ug/dL 04/29/2025 4:22 AM EDT [facility] Comment:Testing performed on [employer], standardized against FDC Reference Standard concentration values assigned by LC-MS/MS and verified by BCR 192 and BCR 193 certified reference materials. Blood Venous blood specimen / Unknown Venipuncture / Unknown 04/29/2025 3:04 AM EDT 04/29/2025 3:19 AM EDT us Sy De La Fuente APRN, DNP LAB REF LAB BLOOD AND FL UID ORD Final Result Performing Organization Address City/[facility] Co de Phone Number [facility] [address] [place] [address] * TSH (04/29/2025 3:04 AM EDT) Thyroid Stimulating Hormone, Plasma 1.58 0.40 - 4.20 uIU/mL 04/29/2025 3:55 AM EDT [facility] Blood Venous blood specimen / Unknown Venipuncture / Unknown 04/29/2025 3:04 AM EDT 04/29/2025 3:19 AM EDT us Sy De La Fuente APRN, DENISE LAB BLOOD ORDERABLES Fin al Result [facility] [address] [place] [address] * (ABNORMAL) Hemoglobin A1c (04/29/2025 3:04 AM EDT) Hemoglobin A1c 8.9(H) <5.7 % 04/29/2025 9:40 AM EDT [facility] Blood Venous blood specimen / Unknown Venipuncture / Unknown 04/29/2025 3:04 AM EDT 04/29/2025 3:19 AM EDT Narrative [facility] - 04/29/2025 9:40 AM EDT HA1C Interpretive Data: Diagnosis of Diabetes: Diabetic > or = 6.5% Pre-diabetic 5.7 to 6.4% Non-diabetic < or = 5.6% Glycemic Targets for Type I and Type II Diabetics: Non- Adults <7.0% Adults <6.0% Children and Adolescents <7.5% Source: [place] [employer]. Standards of medical care in diabetes,2017. Diabetes Care.2017:40 (suppl 1):S1-S135. us Sy De La Fuente APRN, DNP LAB BLOOD ORDERABLES Fin al Result Performing Organization Address City/[facility] de Phone Number [facility] [address] [place] [address] * Phosphorus (04/29/2025 3:04 AM EDT) Phosphorus, Plasma 3.6 2.5 - 4.5 mg/dL 04/29/2025 3:55 AM EDT [facility] Blood Venous blood specimen / Unknown Venipuncture / Unknown 04/29/2025 3:04 AM EDT 04/29/2025 3:19 AM EDT us Sy De La Fuente APRN, DNP LAB BLOOD ORDERABLES Fin al Result Performing Organization Address City/[facility]/ZIP Co de Phone Number [facility] [address] [place] [address] * (ABNORMAL) Magnesium, Plasma (04/29/2025 3:04 AM EDT) Magnesium, Plasma 1.7(L) 1.9 - 2.4 mg/dL 04/29/2025 3:55 AM EDT [facility] Blood Venous blood specimen / Unknown Venipuncture / Unknown 04/29/2025 3:04 AM EDT 04/29/2025 3:19 AM EDT us luis Maurice Leisa FITTING ROOM OPERATOR, DNP LAB BLOOD ORDERABLES Fin al Result [facility] [address] [place] [address] * (ABNORMAL) Comprehensive metabolic panel (04/29/2025 3:04 AM EDT) Glucose, Plasma 219(H) 74 - 99 mg/dL 04/29/2025 3:55 AM EDT [facility] BUN, Plasma 9 7 - 21 mg/dL 04/29/2025 3:55 AM EDT [facility] Creatinine, Plasma 0.94 0.70 - 1.20 mg/dL 04/29/2025 3:55 AM EDT [facility] BUN/Creatinine Ratio 04/29/2025 3:55 AM EDT [facility] Sodium, Plasma 137 136 - 145 mmol/L 04/29/2025 3:55 AM EDT [facility] Potassium, Plasma 3.1(L) 3.6 - 4.9 mmol/L 04/29/2025 3:55 AM EDT [facility] Chloride, Plasma 92(L) 97 - 107 mmol/L 04/29/2025 3:55 AM EDT [facility] CO2, Plasma 38(H) 22 - 29 mmol/L 04/29/2025 3:55 AM EDT [facility] Anion Gap 7 6 - 16 mmol/L 04/29/2025 3:55 AM EDT [facility] Total Calcium, Plasma 8.6(L) 8.9 - 10.2 mg/dL 04/29/2025 3:55 AM EDT [facility] Total Protein 7.4 6.3 - 7.9 g/dL 04/29/2025 3:55 AM EDT [facility] Albumin, Plasma 3.3(L) 3.5 - 5.2 g/dL 04/29/2025 3:55 AM EDT [facility] AST, Plasma 18 10 - 50 U/L 04/29/2025 3:55 AM EDT [facility] ALT, Plasma 11 10 - 50 U/L 04/29/2025 3:55 AM EDT [facility] Alkaline Phosphatase, Plasma 55 40 - 115 U/L 04/29/2025 3:55 AM EDT [facility] Total Bilirubin, Plasma 0.8 0.2 - 1.1 mg/dL 04/29/2025 3:55 AM EDT [facility] eGFRcr 100.6 mL/min/1.7 3m*2 04/29/2025 3:55 AM EDT [facility] Comment:Reported eGFRcr in m L/min/1.73m2 is based the CKD-EPI 2020 equation that does not use a race coefficient. Blood Venous blood specimen / Unknown Venipuncture / Unknown 04/29/2025 3:04 AM EDT 04/29/2025 3:19 AM EDT us Sy De La Fuente FITTING ROOM OPERATOR, DNP LAB BLOOD ORDERABLES Fin al Result [facility] [address] [place] [address] * (ABNORMAL) CBC and Differential (04/29/2025 3:04 AM EDT) WBC Count 6.68 3.70 - 10.30 10*3/uL LAB HEMATOLOGY METHOD 04/29/2025 3:16 AM EDT [facility] RBC Count 4.21(L) 4.60 - 6.10 10*6/uL LAB HEMATOLOGY METHOD 04/29/2025 3:16 AM EDT [facility] HGB 9.4(L) 13.7 - 17.5 g/dL LAB HEMATOLOGY METHOD 04/29/2025 3:16 AM EDT [facility] HCT 32.0(L) 40.0 - 51.0 % LAB HEMATOLOGY METHOD 04/29/2025 3:16 AM EDT [facility] Platelet Count 249 155 - 369 10*3/uL LAB HEMATOLOGY METHOD 04/29/2025 3:16 AM EDT [facility] MCV 76(L) 79 - 98 fL LAB HEMATOLOGY METHOD 04/29/2025 3:16 AM EDT [facility] MCH 22.3(L) 26.0 - 32.0 pg LAB HEMATOLOGY METHOD 04/29/2025 3:16 AM EDT [facility] MCHC 29.4(L) 30.7 - 35.5 g/dL LAB HEMATOLOGY METHOD 04/29/2025 3:16 AM EDT [facility] RDW 19.6(H) 11.5 - 14.5 % LAB HEMATOLOGY METHOD 04/29/2025 3:16 AM EDT [facility] MPV 8.4(L) 8.8 - 12.5 fL LAB HEMATOLOGY METHOD 04/29/2025 3:16 AM EDT [facility] nRBC 0.0 <=0.0 per 100 WBCs LAB HEMATOLOGY METHOD 04/29/2025 3:16 AM EDT [facility] Differential Type Automated LAB HEMATOLOGY METHOD 04/29/2025 3:16 AM EDT [facility] Neutrophils % 75 % LAB HEMATOLOGY METHOD 04/29/2025 3:16 AM EDT [facility] Lymphocytes % 11 % LAB HEMATOLOGY METHOD 04/29/2025 3:16 AM EDT [facility] Monocytes % 9 % LAB HEMATOLOGY METHOD 04/29/2025 3:16 AM EDT [facility] Eosinophils % 4 % LAB HEMATOLOGY METHOD 04/29/2025 3:16 AM EDT [facility] Basophils % 0 % LAB HEMATOLOGY METHOD 04/29/2025 3:16 AM EDT [facility] Immature Granulocytes % 1 % LAB HEMATOLOGY METHOD 04/29/2025 3:16 AM EDT [facility] Neutrophils Absolute 5.01 1.60 - 6.10 10*3/uL LAB HEMATOLOGY METHOD 04/29/2025 3:16 AM EDT [facility] Lymphocytes Absolute 0.75(L) 1.20 - 3.90 10*3/uL LAB HEMATOLOGY METHOD 04/29/2025 3:16 AM EDT [facility] Monocytes Absolute 0.59 0.30 - 0.90 10*3/uL LAB HEMATOLOGY METHOD 04/29/2025 3:16 AM EDT [facility] Eosinophils Absolute 0.26 0.00 - 0.50 10*3/uL LAB HEMATOLOGY METHOD 04/29/2025 3:16 AM EDT [facility] Basophils Absolute 0.03 0.00 - 0.10 10*3/uL LAB HEMATOLOGY METHOD 04/29/2025 3:16 AM EDT [facility] Immature Granulocytes Absolute 0.04 0.00 - 0.06 10*3/uL LAB HEMATOLOGY METHOD 04/29/2025 3:16 AM EDT [facility] Blood Venous blood specimen / Unknown Venipuncture / Unknown 04/29/2025 3:04 AM EDT 04/29/2025 3:13 AM EDT Narrative [facility] - 04/29/2025 3:16 AM EDT Therapeutic decision making should be based on absolute values, rather than percentages. us Sy De La Fuente FITTING ROOM OPERATOR, DNP LAB BLOOD ORDERABLES Fin al Result [facility] [address] [place] [address] * (ABNORMAL) POCT glucose meter (04/28/2025 9:06 PM EDT) [facility] POCT Glucose 212(H) 74 - 99 mg/dL 04/28/2025 9:08 PM EDT [facility]ALTH[facility]ARE LAB Comment:Accuracy of a glucos e result obtained from a capillary whole blood specimen relies upon adequate, non-compromised capillary blood flow. If the capillary glucose result is not consistent with the patient's clinical signs and symptoms, glucose testing should be repeated with either an arterial or venous sample on the glucometer or sent to the main labortory for testing. Comment 04/28/2025 9:08 PM EDT HEALTHCARE LAB Liquefier ID Frankie Poole 04/28/2025 9:08 PM EDT HEALTHCARE LAB Device ID [id number] 04/28/2025 9:08 PM EDT HEALTHCARE LAB Specimen Type POC Capillary 04/28/2025 9:08 PM EDT [facility] Blood Capillary blood specimen / Unknown 04/28/2025 9:06 PM EDT 04/28/2025 9:08 PM EDT us Marjorie Myers MD LAB POINT OF CARE TE ST DOCKED DEVICE UNSOLICITED RESULTS Final Result [facility] [address] [place] [address] * (ABNORMAL) POCT glucose meter (04/28/2025 5:34 PM EDT) [facility] POCT Glucose 213(H) 74 - 99 mg/dL 04/28/2025 5:38 PM EDT [facility] Comment:Accuracy of [...] to the main labortory for testing. Comment 04/28/2025 5:38 PM EDT [facility] Liquefier ID Ailyn Finch 5:38 PM EDT [facility] Device ID [id number] 04/28/2025 5:38 PM EDT [facility] Specimen Type POC Capillary 04/28/2025 5:38 PM EDT [facility]ALTH[facility] Blood Capillary blood specimen / Unknown 04/28/2025 5:34 PM EDT 04/28/2025 5:38 PM EDT Marjorie Myers MD LAB POINT OF CARE TE ST DOCKED DEVICE UNSOLICITED RESULTS Final Result Performing Organization Address City/[facility]/ZIP Co de Phone Number [facility] [address] [place] [address] * (ABNORMAL) POCT glucose meter (04/28/2025 3:51 PM EDT) [facility] POCT Glucose 209(H) 74 - 99 mg/dL 04/28/2025 3:54 PM EDT [facility] Comment:Accuracy of [...] to the main labortory for testing. Comment 04/28/2025 3:54 PM EDT [facility] Liquefier ID Ailyn Finch 3:54 PM EDT [facility] Device ID [id number] 04/28/2025 3:54 PM EDT [facility] Specimen Type POC Capillary 04/28/2025 3:54 PM EDT [facility] Blood Capillary blood specimen / Unknown 04/28/2025 3:51 PM EDT 04/28/2025 3:54 PM EDT Marjorie Myers MD LAB POINT OF CARE TE ST DOCKED DEVICE UNSOLICITED RESULTS Final Result [facility] [address] [place], [place] [id number] * VAS Ankle Brachial Index - GABBI Only (04/28/2025 3:16 PM EDT) Anatomical Region Laterality Modality Vascular Ultrasound Impressions 04/28/2025 4:14 PM EDT Right: Normal study; No evidence of hemodynamically significant arterial disease at rest. Left: Normal study; No evidence of hemodynamically significant arterial disease at rest. COMMUNICATION: Per this written report. Preliminary report signed by ANGIE Valera on 04/28/2025 3:29 PM By electronically signing this report, I, the attending physician, attest that I have personally reviewed the images/data for the above examination(s) and I agree with the final edited report. Drafted by ANGIE Valera on 04/28/2025 3:28 PM Final report signed by Chris Schaefer MD, FACS, FSVS, RPVI on 04/28/2025 4:14 PM Narrative 04/28/2025 4:14 PM EDT CLINICAL INDICATION: Diabetic foot ulcer TECHNIQUE: Non-invasive, continuous wave Doppler exam with segmental pressures and spectral analysis of the lower extremity was performed. COMPARISON: None. FINDINGS: Right: Multiphasic waveforms are demonstrated at the levels of the MANAGER TITLE and DPA. Segmental pressures are within normal limits with a MANAGER TITLE GABBI of 1.1 (172 mmHg) and a DPA GABBI of 1.0 (149 mmHg). Digit pressures are of 122 mmHg. Left: Multiphasic waveforms are demonstrated at the levels of the MANAGER TITLE and DPA. Segmental pressures are within normal limits with a MANAGER TITLE GABBI of 1.1 (164 mmHg) and a DPA GABBI of 1.0 (153 mmHg). Digit pressures are of 151 mmHg. Procedure Note Chris Schaefer MD - 04/28/2025 CLINICAL INDICATION: Diabetic foot ulcer TECHNIQUE: Non-invasive, continuous wave Doppler exam with segmental pressures andspectral analysis of the lower extremity was performed. COMPARISON: None. FINDINGS: Right: Multiphasic waveforms are demonstrated at the levels of the MANAGER TITLE andDPA. Segmental pressures are within normal limits with a MANAGER TITLE GABBI of 1.1(172 mmHg) and a DPA GABBI of 1.0 (149 mmHg). Digit pressures are of 122mmHg. Left: Multiphasic waveforms are demonstrated at the levels of the MANAGER TITLE andDPA. Segmental pressures are within normal limits with a MANAGER TITLE GABBI of 1.1(164 mmHg) and a DPA GABBI of 1.0 (153 mmHg). Digit pressures are of 151mmHg. IMPRESSION: Right: Normal study; No evidence of hemodynamically significant arterialdisease at rest. Left: Normal study; No evidence of hemodynamically significant arterialdisease at rest. COMMUNICATION: Per this written report. Preliminary report signed by ANGIE Valera on 04/28/2025 3:29PM By electronically signing this report, I, the attending physician, attestthat I have personally reviewed the images/data for the aboveexamination(s) and I agree with the final edited report. Drafted by ANGIE Valera on 04/28/2025 3:28 PM Final report signed by Chris Schaefer MD, FACS, FSVS, RPVI on04/28/2025 4:14 PM Sy De La Fuente FITTING ROOM OPERATOR, DNP CV VASCULAR PROCEDURES F inal Result * Multi Drug Resistance Test (04/28/2025 1:44 PM EDT) Culture No Multi Drug Resistant Organisms Isolated 04/29/2025 2:32 PM EDT [facility] Swab (Nares and Saba Rectal) Non-blood Collection / Unknown 04/28/2025 1:44 PM EDT 04/28/2025 2:15 PM EDT Narrative [facility] - 04/29/2025 2:32 PM EDT This test was developed and its performance characteristics determined by the [facility]. Although the media is FDA-approved, it is not FDA-approved for all specimen types submitted. The FDA has determined that such clearance or approval is not necessary. This test is used for surveillance purposes. It should not be regarded as investigational or for research. The [facility] is certified under the Clinical Laboratory Improvement Amendments of 1988 (CLIA-88) as qualified to perform high complexity clinical laboratory testing. us Sy De La Fuente APRN, DENISE LAB MICROBIOLOGY - GENER AL ORDERABLES Final Result [facility] [address] [place] [address] * (ABNORMAL) POCT glucose meter (04/28/2025 12:52 PM EDT) POCT Glucose 271(H) 74 - 99 mg/dL 04/28/2025 12:56 PM EDT [facility] Comment:Accuracy of [...] to the main labortory for testing. Comment 04/28/2025 12:56 PM EDT [facility]ALTH[facility] LAB Liquefier ID Ailyn Finch 12:56 PM EDT HEALTHCARE LAB Device ID [id number] 04/28/2025 12:56 PM EDT [facility] Specimen Type POC Capillary 04/28/2025 12:56 PM EDT [facility] Blood Capillary blood specimen / Unknown 04/28/2025 12:52 PM EDT 04/28/2025 12:56 PM EDT Marjorie Myers MD LAB POINT OF CARE TE ST DOCKED DEVICE UNSOLICITED RESULTS Final Result Performing Organization Address City/[facility]/ZIP Co de Phone Number [facility] [address] [place] [address] * (ABNORMAL) POCT glucose meter (04/28/2025 11:39 AM EDT) POCT Glucose 271(H) 74 - 99 mg/dL 04/28/2025 11:44 AM EDT [facility]ALTH[facility] Comment:Accuracy of a glucos e result obtained from a capillary whole blood specimen relies upon adequate, non-compromised capillary blood flow. If the capillary glucose result is not consistent with the patient's clinical signs and symptoms, glucose testing should be repeated with either an arterial or venous sample on the glucometer or sent to the main labortory for testing. Comment 04/28/2025 11:44 AM EDT [facility]ALTH[facility] Liquefier ID Ailyn Finch 11:44 AM EDT HEALTHCARE LAB Device ID [id number] 04/28/2025 11:44 AM EDT [facility]ALTH[facility] LAB Specimen Type POC Capillary 04/28/2025 11:44 AM EDT [facility] Blood Capillary blood specimen / Unknown 04/28/2025 11:39 AM EDT 04/28/2025 11:44 AM EDT us Marjorie Myers MD LAB POINT OF CARE TE ST DOCKED DEVICE UNSOLICITED RESULTS Final Result Performing Organization Address City/[facility]/ZIP Co de Phone Number [facility] [address] [place] [address] * Lavender Top (04/28/2025 8:13 AM EDT) Extra Hold for add-ons 04/28/2025 11:01 AM EDT [facility] Comment:Auto resulted. Blood Venous blood specimen / Unknown 04/28/2025 8:13 AM EDT 04/28/2025 8:19 AM EDT us Marjorie Myers MD LAB BLOOD ORDERABLES Final Resul t [facility] [address] [place] [address] * Light Green Top (04/28/2025 8:13 AM EDT) Extra Hold for add-ons 04/28/2025 11:01 AM EDT [facility] Comment:Auto resulted. Blood Venous blood specimen / Unknown 04/28/2025 8:13 AM EDT 04/28/2025 8:19 AM EDT us Marjorie Myers MD LAB BLOOD ORDERABLES Final Resul t Performing Organization Address City/[facility]/ZIP Co de Phone Number [facility] [address] [place] [address] * APTT (04/28/2025 8:13 AM EDT) aPTT 32 25 - 35 sec 04/28/2025 8:33 AM EDT [facility] Blood Venous blood specimen / Unknown Venipuncture / Unknown 04/28/2025 8:13 AM EDT 04/28/2025 8:18 AM EDT us Sy De La Fuente APRN, DENISE LAB BLOOD ORDERABLES Fin al Result Performing Organization Address [facility] de Phone Number [facility] [address] [place] [address] * (ABNORMAL) PT/INR (04/28/2025 8:13 AM EDT) Prothrombin Time 17.5(H) 12.0 - 14.3 sec 04/28/2025 8:33 AM EDT [facility] INR 1.4(H) 0.9 - 1.1 04/28/2025 8:33 AM EDT [facility] Blood Venous blood specimen / Unknown Venipuncture / Unknown 04/28/2025 8:13 AM EDT 04/28/2025 8:18 AM EDT Narrative [facility] - 04/28/2025 8:33 AM EDT OPTIMAL INR RANGES FOR PATIENT ON ORAL ANTICOAGULANT THERAPY Prevention of venous thromboembolism INR 2.0 to 3.0 In patients with heart disease: Atrial fibrillation INR 2.0 to 3.0 Valvular heart disease INR 2.0 to 3.0 Tissue heart valves INR 2.0 to 3.0 Mechanical prosthetic valves INR 2.5 to 3.5 Prevention of recurrent HI INR 2.5 to 3.5 Sy De La Fuente APRN, DENISE LAB BLOOD ORDERABLES Fin al Result Performing Organization Address City/[facility]/ZIP Co de Phone Number [facility] [address] [place] [address] * ECG Adult (04/28/2025 7:20 AM EDT) EKG DIAGNOSIS CLASS Abnormal MUSE ECG Ventricular Rate 90 BPM MUSE ECG Atrial Rate 90 BPM MUSE ECG ID Interval 206 ms MUSE ECG QRSD Interval 146 ms MUSE ECG QT Interval 450 ms MUSE ECG QTC Interval 550 ms MUSE ECG P [place] 69 degrees MUSE ECG R [place] -32 degrees MUSE ECG T Wave [place] 35 degrees MUSE ECG Diagnosis Baseline Artifact MUSE ECG Diagnosis Poor data quality, interpretation may be adversely affected MUSE ECG Diagnosis Normal sinus rhythm MUSE ECG Diagnosis Left atrial enlargement MUSE ECG Diagnosis Left axis deviation MUSE ECG Diagnosis Right bundle branch block MUSE ECG Diagnosis Abnormal ECG MUSE ECG Diagnosis MUSE ECG Diagnosis Confirmed by Lasha Navarrete ([id number]) on 04/28/2025 5:22:51 PM MUSE ECG 04/28/2025 7:20 AM EDT 04/28/2025 5:22 PM EDT Sy De La Fuente APRN, DENISE ECG ORDERABLES Final Re sult Performing Organization Address [facility] Co de Phone Number MUSE ECG * (ABNORMAL) POCT glucose meter (04/28/2025 7:17 AM EDT) Pathologist [facility] POCT Glucose 199(H) 74 - 99 mg/dL 04/28/2025 7:21 AM EDT [facility] Comment:Accuracy of [...] to the main labortory for testing. Comment 04/28/2025 7:21 AM EDT [facility] Liquefier ID Ailyn Finch 7:21 AM EDT [facility] Device ID [id number] 04/28/2025 7:21 AM EDT [facility] Specimen Type POC Capillary 04/28/2025 7:21 AM EDT [facility] Blood Capillary blood specimen / Unknown 04/28/2025 7:17 AM EDT 04/28/2025 7:21 AM EDT us Greg Lee MD LAB POINT OF CARE TE ST DOCKED DEVICE UNSOLICITED RESULTS Final Result Performing Organization Address City/State/[facility] Co me Phone Number HEALTHCARE LAB [address] [place] [id number] * CT Foot Right w IV Contrast (04/28/2025 3:41 AM EDT) Anatomical Region Laterality Modality Lower Extremities, Foot Right Computed Tomography Impressions 04/28/2025 5:27 AM EDT Soft tissue defect along the dorsal lateral foot and open, comminuted fracture and irregularity of the fifth metatarsal head. These findings are compatible with osteomyelitis. No discrete abscess. Exam limited by positioning. CRITICAL RESULT: No. COMMUNICATION: Per this written report. Preliminary report signed by Haritha Govea DO on 04/28/2025 5:19 AM By electronically signing this report, I, the attending physician, attest that I have personally reviewed the images/data for the above examination(s) and agree with the final edited report. Drafted by Haritha Govea DO on 04/28/2025 5:00 AM Final report signed by Roderick Alcala MD on 04/28/2025 5:27 AM Narrative 04/28/2025 5:27 AM EDT CLINICAL INDICATION: Osteomyelitis suspected, foot, xray done TECHNIQUE: Multiple axial CT images of the right foot were obtained after contrast administration, 100 mL of Omnipaque 300. Reformatted images in the coronal and/or sagittal plane(s) were generated from the axial data set to facilitate diagnostic accuracy and/or surgical planning. Total DLP (Dose-Length Product): 245.15 mGy.cm. Please note: The reported value represents the total of one or more individual components during the CT acquisition on this date and at this time, and as such, the same value may appear in more than one CT report depending on the interpreting/reporting physicians. COMPARISON: Right foot radiographs performed 4 hours prior FINDINGS: Evaluation limited by positioning. Soft tissue defect over the distal fifth metatarsal with exposed acute, displaced fracture of the fifth metatarsal head (series 4, image 99). Curvilinear mineralization at the skin surface may represent external material versus displaced osseous fragment (series 4, image 102). The base of the fifth proximal phalanx is mildly irregular, which could represent osseous erosion. Edema throughout the subcutaneous tissues of the ankle and foot. Stranding, most significant adjacent to the above-described dorsal foot wound, without discrete abscess. Stranding and soft tissue thickening extends throughout the myofascial planes. Procedure Note Roderick Alcala MD - 04/28/2025 CLINICAL INDICATION: Osteomyelitis suspected, foot, xray done TECHNIQUE: Multiple axial CT images of the right foot were obtained after contrastadministration, 100 mL of Omnipaque 300. Reformatted images in the coronaland/or sagittal plane(s) were generated from the axial data set tofacilitate diagnostic accuracy and/or surgical planning. Total DLP (Dose-Length Product): 245.15 mGy.cm. Please note: The reportedvalue represents the total of one or more individual components during theCT acquisition on this date and at this time, and as such, the same valuemay appear in more than one CT report depending on theinterpreting/reporting physicians. COMPARISON: Right foot radiographs performed 4 hours prior FINDINGS: Evaluation limited by positioning. Soft tissue defect over the distal fifth metatarsal with exposed acute,displaced fracture of the fifth metatarsal head (series 4, image 99).Curvilinear mineralization at the skin surface may represent externalmaterial versus displaced osseous fragment (series 4, image 102). The baseof the fifth proximal phalanx is mildly irregular, which could representosseous erosion. Edema throughout the subcutaneous tissues of the ankle and foot.Stranding, most significant adjacent to the above-described dorsal footwound, without discrete abscess. Stranding and soft tissue thickeningextends throughout the myofascial planes. IMPRESSION: Soft tissue defect along the dorsal lateral foot and open, comminutedfracture and irregularity of the fifth metatarsal head. These findings arecompatible with osteomyelitis. No discrete abscess. Exam limited by positioning. CRITICAL RESULT: No. COMMUNICATION: Per this written report. Preliminary report signed by Haritha Govea DO on 04/28/2025 5:19AM By electronically signing this report, I, the attending physician, attestthat I have personally reviewed the images/data for the aboveexamination(s) and agree with the final edited report. Drafted by Haritha Govea DO on 04/28/2025 5:00 AM Final report signed by Roderick Alcala MD on 04/28/2025 5:27 AM Jessa Law MD IMG CT PROCEDURES Final Result * XR Foot Right 3+ Views (04/27/2025 11:13 PM EDT) Anatomical Region Laterality Modality Lower Extremities, Foot Right Digital Radiography Impressions 04/27/2025 11:40 PM EDT Chronic ulcer in the lateral forefoot. There is adjacent osseous destruction and erosions at the fifth MTP suggestive of osteomyelitis. CRITICAL RESULT: No. COMMUNICATION: Per this written report. Drafted by Kim Bai MD on 04/27/2025 11:38 PM Final report signed by Kim Bai MD on 04/27/2025 11:40 PM Narrative 04/27/2025 11:40 PM EDT CLINICAL INDICATION: wound TECHNIQUE: XR FOOT RIGHT 3+ VIEWS COMPARISON: None. FINDINGS: Chronic ulcer in the lateral forefoot. There is adjacent osseous destruction and erosions at the fifth MCP. Remaining articular structures of foot within normal limits. No acute fracture or dislocation. Significant soft tissue swelling without gas. Procedure Note Kim Bai MD - 04/27/2025 CLINICAL INDICATION: wound TECHNIQUE: XR FOOT RIGHT 3+ VIEWS COMPARISON: None. FINDINGS: Chronic ulcer in the lateral forefoot. There is adjacent osseousdestruction and erosions at the fifth MCP. Remaining articular structuresof foot within normal limits. No acute fracture or dislocation.Significant soft tissue swelling without gas. IMPRESSION: Chronic ulcer in the lateral forefoot. There is adjacent osseousdestruction and erosions at the fifth MTP suggestive of osteomyelitis. CRITICAL RESULT: No. COMMUNICATION: Per this written report. Drafted by Kim Bai MD on 04/27/2025 11:38 PM Final report signed by Kim Bai MD on 04/27/2025 11:40 PM us Jessa Law MD IMG XR PROCEDURES Final Result * Type and screen (04/27/2025 10:16 PM EDT) ABO/Rh O Positive 04/27/2025 10:23 PM EDT BLOOD BANK Antibody Screen Negative 04/27/2025 10:23 PM EDT BLOOD BANK Specimen Expiration 04/30/2025 23:59 04/27/2025 10:23 PM EDT BLOOD BANK Blood Venous blood specimen / Unknown Venipuncture / Unknown 04/27/2025 10:16 PM EDT 04/27/2025 10:23 PM EDT us Jessa Law MD LAB BLOOD BANK TEST ORDERABLES Final Result Performing Organization Address [facility] de Phone Number BLOOD BANK [address] [place] [address] * Blood Culture (Aerobic/Anaerobet Set) (04/27/2025 10:16 PM EDT) Culture No growth at day 5 05/03/2025 12:01 AM EDT [facility] Blood Venous blood specimen / Unknown Venipuncture / Unknown 04/27/2025 10:16 PM EDT 04/27/2025 10:53 PM EDT us Jessa Law MD LAB MICROBIOLOGY - [facility] Final Result [facility] [address] [place] [address] * Blood Culture (Aerobic/Anaerobet Set) (04/27/2025 10:16 PM EDT) Culture No growth at day 5 05/03/2025 12:01 AM EDT [facility] Blood Venous blood specimen / Unknown Venipuncture / Unknown 04/27/2025 10:16 PM EDT 04/27/2025 10:53 PM EDT us Jessa Law MD LAB MICROBIOLOGY - GENERAL SANYA DOMINGUEZ Final Result [facility] [address] [place] [address] * (ABNORMAL) Blood gas, venous (04/27/2025 10:16 PM EDT) pH, Venous 7.47(H) 7.32 - 7.43 LAB HEMATOLOGY METHOD 04/27/2025 10:21 PM EDT [facility] pCO2, Venous 50 40 - 55 mmHg LAB HEMATOLOGY METHOD 04/27/2025 10:21 PM EDT [facility] pO2, Venous 30 25 - 40 mmHg LAB HEMATOLOGY METHOD 04/27/2025 10:21 PM EDT [facility] SO2, Measured, Venous 52(L) 65 - 80 % LAB HEMATOLOGY METHOD 04/27/2025 10:21 PM EDT [facility] Base Excess, Venous 11.6(H) -2.0 - 3.0 mmol/L LAB HEMATOLOGY METHOD 04/27/2025 10:21 PM EDT [facility] Bicarbonate, Calculated, Venous 37(H) 22 - 26 mmol/L LAB HEMATOLOGY METHOD 04/27/2025 10:21 PM EDT [facility] Hematocrit, Whole Blood 30.1(L) 40.0 - 51.0 % LAB HEMATOLOGY METHOD 04/27/2025 10:21 PM EDT [facility] Sodium, Whole Blood 136 136 - 145 mmol/L LAB HEMATOLOGY METHOD 04/27/2025 10:21 PM EDT [facility] Potassium, Whole Blood 2.8(L) 3.6 - 4.9 mmol/L LAB HEMATOLOGY METHOD 04/27/2025 10:21 PM EDT [facility] Chloride, Whole Blood 88(L) 97 - 107 mmol/L LAB HEMATOLOGY METHOD 04/27/2025 10:21 PM EDT [facility] Glucose, Whole Blood 131(H) 74 - 99 mg/dL LAB HEMATOLOGY METHOD 04/27/2025 10:21 PM EDT [facility] Lactate, Venous, Whole Blood 2.0 0.5 - 2.2 mmol/L LAB HEMATOLOGY METHOD 04/27/2025 10:21 PM EDT [facility] Ionized Calcium, Whole Blood 4.2(L) 4.6 - 5.1 mg/dL LAB HEMATOLOGY METHOD 04/27/2025 10:21 PM EDT [facility] Blood Venous blood specimen / Unknown Venipuncture / Unknown 04/27/2025 10:16 PM EDT 04/27/2025 10:20 PM EDT us Jessa Law MD LAB BLOOD ORDERABLES Final Resu lt Performing Organization Address City/[facility]/ZIP Co de Phone Number [facility] [address] [place] [address] * Creatine Kinase, Total, Plasma (04/27/2025 9:37 PM EDT) Creatine Kinase, Plasma 71 49 - 320 U/L 04/28/2025 8:36 AM EDT [facility] Blood Venous blood specimen / Unknown Venipuncture / Unknown 04/27/2025 9:37 PM EDT 04/27/2025 9:40 PM EDT us Sy De La Fuente FITTING ROOM OPERATOR, DNP LAB BLOOD ORDERABLES Fin al Result Performing Organization Address [facility] [place] [address] * (ABNORMAL) Procalcitonin (04/27/2025 9:37 PM EDT) Procalcitonin, Plasma 0.11(H) <0.09 ng/mL 04/28/2025 8:36 AM EDT [facility] Blood Venous blood specimen / Unknown Venipuncture / Unknown 04/27/2025 9:37 PM EDT 04/27/2025 9:40 PM EDT Narrative [facility] - 04/28/2025 8:36 AM EDT Procalcitonin concentrations in healthy individuals are <0.09 ng/mL. Published data support the following interpretive risk assessment: An elevated procalcitonin result does not always indicate sepsis. Various non-infectious conditions are known to increase procalcitonin. Results should be considered in the context of clinical symptoms and other laboratory tests. Procalcitonin >2.0 ng/mL: Concentrations >2.0 ng/mL on the first day of ICU admission are associated with a higher risk of progression to severe sepsis and/or septic shock. The change in PCT over time may help predict 28 day mortality risk. Please consult [email or web address] for more information. Test performed at [facility]. Sy De La Fuente APRN, DENISE LAB BLOOD ORDERABLES Fin al Result Performing Organization Address City/[facility]/ZIP Co de Phone Number [facility] [address] [place] [address] * (ABNORMAL) Sed rate, automated (04/27/2025 9:37 PM EDT) Sedimentation Rate >111(H) <15 mm/hr 2024 11:10 PM EDT [facility] Blood Venous blood specimen / Unknown Venipuncture / Unknown 04/27/2025 9:37 PM EDT 04/27/2025 9:40 PM EDT Result [facility] Jessa Law MD LAB BLOOD ORDERABLES Final Resu lt Performing Organization Address [facility] Co me Phone Number [facility] [address] [place] [address] * (ABNORMAL) Magnesium (04/27/2025 9:37 PM EDT) Magnesium, Plasma 1.2(L) 1.9 - 2.4 mg/dL 04/27/2025 10:11 PM EDT [facility] Blood Venous blood specimen / Unknown Venipuncture / Unknown 04/27/2025 9:37 PM EDT 04/27/2025 9:40 PM EDT Jessa Law MD LAB BLOOD ORDERABLES Final Resu lt Performing Organization Address [facility] Co de Phone Number [facility] [address] [place] [address] * Beta-Hydroxybutyric Acid (04/27/2025 9:37 PM EDT) [facility] Beta-Hydroxybut yric Acid, Plasma 0.23 <=0.27 mmol/L 04/27/2025 10:56 PM EDT [facility] Blood Venous blood specimen / Unknown Venipuncture / Unknown 04/27/2025 9:37 PM EDT 04/27/2025 9:40 PM EDT us Jessa Law MD LAB BLOOD ORDERABLES Final Resu lt [facility] [address] [place] [address] * ED HIV 1/2 Antibody/Antigen Screen w/Reflex to HIV 1/2 Differentiation (04/27/2025 9:37 PM EDT) [facility] HIV 1 & 2 Antibody/Antigen Screen Non Reactive Non Reactive 04/27/2025 10:41 PM EDT [facility] Comment:Screening for HIV 1 & 2 antibodies, and P24 antigen is NONREACTIVE. No confirmatory testing is required. Blood Venous blood specimen / Unknown Venipuncture / Unknown 04/27/2025 9:37 PM EDT 04/27/2025 10:00 PM EDT us Madhu Ritchie MD LAB BLOOD ORDERABLES Final Res ult Performing Organization Address [facility] Co de Phone Number [facility] [address] [place] [address] * Hepatitis C Antibody - ED (04/27/2025 9:37 PM EDT) [facility] Hepatitis C Antibody Negative Negative 04/27/2025 10:41 PM EDT [facility] Blood Venous blood specimen / Unknown Venipuncture / Unknown 04/27/2025 9:37 PM EDT 04/27/2025 10:00 PM EDT us Madhu Ritchie MD LAB BLOOD ORDERABLES Final Res ult Performing Organization Address City/[facility]/ZIP Co de Phone Number [facility] [address] [place] [address] * (ABNORMAL) C-reactive protein (04/27/2025 9:37 PM EDT) Pathologist [facility] CRP, Plasma 82.6(H) <=8.0 mg/L 04/27/2025 10:03 PM EDT [facility] Blood Venous blood specimen / Unknown Venipuncture / Unknown 04/27/2025 9:37 PM EDT 04/27/2025 9:40 PM EDT Narrative [facility] - 04/27/2025 10:03 PM EDT This CRP test is appropriate for assessment of infection, systemic inflammation and/or tissue injury. To assess cardiovascular disease risk order high sensitivity CRP (CRPH). us Madhu Ritchie MD LAB BLOOD ORDERABLES Final Res ult [facility] [address] [place] [address] * (ABNORMAL) CBC w/diff (04/27/2025 9:37 PM EDT) Pathologist [facility] WBC Count 12.00(H) 3.70 - 10.30 10*3/uL LAB HEMATOLOGY METHOD 04/27/2025 9:43 PM EDT [facility] RBC Count 4.48(L) 4.60 - 6.10 10*6/uL LAB HEMATOLOGY METHOD 04/27/2025 9:43 PM EDT [facility] HGB 10.4(L) 13.7 - 17.5 g/dL LAB HEMATOLOGY METHOD 04/27/2025 9:43 PM EDT [facility] HCT 33.3(L) 40.0 - 51.0 % LAB HEMATOLOGY METHOD 04/27/2025 9:43 PM EDT [facility] Platelet Count 282 155 - 369 10*3/uL LAB HEMATOLOGY METHOD 04/27/2025 9:43 PM EDT [facility] MCV 74(L) 79 - 98 fL LAB HEMATOLOGY METHOD 04/27/2025 9:43 PM EDT [facility] MCH 23.2(L) 26.0 - 32.0 pg LAB HEMATOLOGY METHOD 04/27/2025 9:43 PM EDT [facility] MCHC 31.2 30.7 - 35.5 g/dL LAB HEMATOLOGY METHOD 04/27/2025 9:43 PM EDT [facility] RDW 19.4(H) 11.5 - 14.5 % LAB HEMATOLOGY METHOD 04/27/2025 9:43 PM EDT [facility] MPV 8.3(L) 8.8 - 12.5 fL LAB HEMATOLOGY METHOD 04/27/2025 9:43 PM EDT [facility] nRBC 0.0 <=0.0 per 100 WBCs LAB HEMATOLOGY METHOD 04/27/2025 9:43 PM EDT [facility] Differential Type Automated LAB HEMATOLOGY METHOD 04/27/2025 9:43 PM EDT [facility] Neutrophils % 82 % LAB HEMATOLOGY METHOD 04/27/2025 9:43 PM EDT [facility] Lymphocytes % 9 % LAB HEMATOLOGY METHOD 04/27/2025 9:43 PM EDT [facility] Monocytes % 7 % LAB HEMATOLOGY METHOD 04/27/2025 9:43 PM EDT [facility] Eosinophils % 2 % LAB HEMATOLOGY METHOD 04/27/2025 9:43 PM EDT [facility] Basophils % 0 % LAB HEMATOLOGY METHOD 04/27/2025 9:43 PM EDT [facility] Immature Granulocytes % 0 % LAB HEMATOLOGY METHOD 04/27/2025 9:43 PM EDT [facility] Neutrophils Absolute 9.73(H) 1.60 - 6.10 10*3/uL LAB HEMATOLOGY METHOD 04/27/2025 9:43 PM EDT [facility] Lymphocytes Absolute 1.11(L) 1.20 - 3.90 10*3/uL LAB HEMATOLOGY METHOD 04/27/2025 9:43 PM EDT [facility] Monocytes Absolute 0.80 0.30 - 0.90 10*3/uL LAB HEMATOLOGY METHOD 04/27/2025 9:43 PM EDT [facility] Eosinophils Absolute 0.29 0.00 - 0.50 10*3/uL LAB HEMATOLOGY METHOD 04/27/2025 9:43 PM EDT [facility] Basophils Absolute 0.03 0.00 - 0.10 10*3/uL LAB HEMATOLOGY METHOD 04/27/2025 9:43 PM EDT [facility] Immature Granulocytes Absolute 0.04 0.00 - 0.06 10*3/uL LAB HEMATOLOGY METHOD 04/27/2025 9:43 PM EDT [facility] Blood Venous blood specimen / Unknown Venipuncture / Unknown 04/27/2025 9:37 PM EDT 04/27/2025 9:40 PM EDT Narrative [facility] - 04/27/2025 9:43 PM EDT Therapeutic decision making should be based on absolute values, rather than percentages. us Madhu Ritchie MD LAB BLOOD ORDERABLES Final Res ult [facility] [address] [place] [address] * (ABNORMAL) BMP (04/27/2025 9:37 PM EDT) Glucose, Plasma 135(H) 74 - 99 mg/dL 04/27/2025 10:03 PM EDT [facility] BUN, Plasma 8 7 - 21 mg/dL 04/27/2025 10:03 PM EDT [facility] Creatinine, Plasma 0.84 0.70 - 1.20 mg/dL 04/27/2025 10:03 PM EDT [facility] BUN/Creatinine Ratio 10 04/27/2025 10:03 PM EDT [facility] Sodium, Plasma 135(L) 136 - 145 mmol/L 04/27/2025 10:03 PM EDT [facility] Potassium, Plasma 3.3(L) 3.6 - 4.9 mmol/L 04/27/2025 10:03 PM EDT [facility] Chloride, Plasma 90(L) 97 - 107 mmol/L 04/27/2025 10:03 PM EDT [facility] CO2, Plasma 29 22 - 29 mmol/L 04/27/2025 10:03 PM EDT [facility] Anion Gap 16 6 - 16 mmol/L 04/27/2025 10:03 PM EDT [facility] Total Calcium, Plasma 9.0 8.9 - 10.2 mg/dL 04/27/2025 10:03 PM EDT [facility] eGFRcr 108.2 mL/min/1.7 3m*2 04/27/2025 10:03 PM EDT [facility] Comment:Reported eGFRcr in m L/min/1.73m2 is based the CKD-EPI 2020 equation that does not use a race coefficient. Blood Venous blood specimen / Unknown Venipuncture / Unknown 04/27/2025 9:37 PM EDT 04/27/2025 9:40 PM EDT us Madhu Ritchie MD LAB BLOOD ORDERABLES Final Res ult [facility] [address] [place] [address] documented in this encounter Visit Diagnoses Diagnosis Other chronic osteomyelitis of right foot ([facility]) Diabetic foot ulcer with osteomyelitis Type II or unspecified type diabetes mellitus with other specified manifestations, not stated as uncontrolled Uncontrolled type 2 diabetes mellitus with hyperglycemia, with long-term current use of insulin Type 2 diabetes mellitus with diabetic peripheral angiopathy without gangrene, with long-term current use of insulin COPD (chronic obstructive pulmonary disease) Chronic airway obstruction, not elsewhere classified CHF (congestive heart failure) Congestive heart failure, unspecified Diabetic neuropathy Type II or unspecified type diabetes mellitus with neurological manifestations, not stated as uncontrolled Hypertension Unspecified essential hypertension Insomnia Insomnia, unspecified Lower back pain Lumbago Depression Depressive disorder, not elsewhere classified Neuropathy Mononeuritis of unspecified site S/P gastric sleeve procedure Type 2 diabetes Morbid obesity ([facility]) Morbid obesity Diabetic foot ulcer with osteomyelitis Type II or unspecified type diabetes mellitus with other specified manifestations, not stated as uncontrolled Pyogenic inflammation of bone Unspecified osteomyelitis, site unspecified documented in this encounter Admitting Diagnoses Diagnosis Diabetic foot ulcer with osteomyelitis Type II or unspecified type diabetes mellitus with other specified manifestations, not stated as uncontrolled Pyogenic inflammation of bone Unspecified osteomyelitis, site unspecified documented in this encounter Administered Medications Inactive Administered Medications - up to 3 most recent administrations Medication Order MAR Action Action Date Dose Rate Site acetaminophen (Tylenol) tablet 1,000 mg 1,000 mg, Oral, Every 6 hours PRN, Starting on Thu04/28/25 at 0701, Until Thu05/09/25 at 0821, Routine, mild pain, moderate pain, headaches, fever, severe pain, fever > 100.4 Given 05/02/2025 8:58 PM EDT 1,000 mg Given 05/01/2025 8:25 PM EDT 1,000 mg Given 04/30/2025 3:28 AM EDT 1,000 mg acetaminophen (Tylenol) tablet 1,000 mg 1,000 mg, Oral, Every 6 hours PRN, Starting on Thu05/09/25 at 0820, Until Michaelle 05/18/25 at 1348, Routine, mild pain, headaches, fever, fever > 100.4 Given 05/17/2025 9:00 AM EST 1,000 mg Given 05/16/2025 4:26 PM EST 1,000 mg Given 05/16/2025 8:56 AM EST 1,000 mg albuterol 108 (90 Base) MCG/ACT inhaler 2 puff 2 puff, Inhalation, Every 4 hours PRN, Starting on Thu05/09/25 at 0820, Until Michaelle 05/18/25 at 1348, Routine, shortness of breath atorvastatin (Lipitor) tablet 40 mg 40 mg, Oral, Nightly, First dose on Thu04/28/25 at 2100, Until Discontinued, Routine Given 05/17/2025 8:0 4 PM EST 40 mg Given 05/16/2025 8:01 PM EST 40 mg Given 05/15/2025 8:01 PM EST 40 mg bisoprolol (Zebeta) tablet 10 mg 10 mg, Oral, 2 times daily, First dose (after last modification) on Thu05/07/25 at 0930, Until Discontinued, Routine Given 05/16/2025 8:56 AM EST 10 mg Given 05/15/2025 8:01 PM EST 10 mg Given 05/15/2025 9:41 AM EST 10 mg bisoprolol (Zebeta) tablet 10 mg 10 mg, Oral, Daily, First dose (after last modification) on Thu05/17/25 at 0900, Until Discontinued, Routine Given 05/18/2025 9:07 AM EST 10 mg Given 05/17/2025 9:00 AM EST 10 mg bisoprolol (Zebeta) tablet 5 mg 5 mg, Oral, 2 times daily, First dose on Thu04/28/25 at 0900, Until Discontinued, Routine Given 05/06/2025 8:24 PM EDT 5 mg Given 05/06/2025 9:06 AM EDT 5 mg Given 05/05/2025 8:34 PM EDT 5 mg bumetanide (Bumex) tablet 4 mg 4 mg, Oral, 3 times daily, First dose on Thu04/28/25 at 0900, Until Discontinued, RoutineIndications:Heart Failure,Hypertension Given 05/18/2025 9:06 AM EST 4 mg Given 05/17/2025 8:04 PM EST 4 mg Given 05/17/2025 5:00 PM EST 4 mg cariprazine (Vraylar) capsule 3 mg 3 mg, Oral, Daily, First dose on Thu04/28/25 at 0900, Until Discontinued Given 05/18/2025 9:07 AM EST 3 mg Given 05/17/2025 9:00 AM EST 3 mg Given 05/16/2025 8:57 AM EST 3 mg cefepime (Maxipime) 2 g in sodium chloride 0.9% 100 mL IVPB (vial adapter required) 2 g, Intravenous, Every 8 hours, First dose on Thu05/03/25 at 1600, Until Discontinued, Routine New Bag 05/05/2025 8:50 AM EDT 2 g 36. 7 mL/hr New Bag 05/04/2025 11:31 PM EDT 2 g 36.7 mL/hr New Bag 05/04/2025 4:24 PM EDT 2 g 36.7 mL/hr DAPTOmycin (Cubicin) 1,500 mg in sodium chloride 0.9 % 100 mL IVPB 1,500 mg (rounded from 1,560 mg = 10 mg/kg 156 kg Adjusted weight), Intravenous, Every 24 hours, First dose on Thu04/28/25 at 1700, Until Discontinued, Routine New Bag 05/04/2025 5:05 PM EDT 1,500 m g 280 mL/hr New Bag 05/03/2025 6:11 PM EDT 1,500 mg 280 mL/hr New Bag 05/02/2025 5:41 PM EDT 1,500 mg 280 mL/hr dextrose 10 % (D10W) bolus 125 mL 125 mL, Intravenous, Every 15 min PRN, Starting on Thu04/28/25 at 0706, Until Michaelle 05/18/25 at 1348, Administer over 15 Minutes, Routine, low blood sugar BG 51-89 mg/dL dextrose 10 % (D10W) bolus 250 mL 250 mL, Intravenous, Every 15 min PRN, Starting on Thu04/28/25 at 0706, Until Thu05/18/25 at 1348, Administer over 15 Minutes, Routine, PRN low blood sugar BG =/<50 mg/dL dilTIAZem CD (Cardizem CD) 24 hr capsule 120 mg 120 mg, Oral, Daily, First dose on Thu04/28/25 at 0900, Until Discontinued, Routine Given 05/18/2025 9:0 6 AM EST 120 mg Given 05/17/2025 9:01 AM EST 120 mg Given 05/16/2025 8:56 AM EST 120 mg ferrous sulfate EC tablet 324 mg 324 mg, Oral, Every other day, First dose on Thu05/11/25 at 0900, Until Discontinued, Routine Given 05/17/2025 9:01 AM EST 324 mg Given 05/15/2025 9:43 AM EST 324 mg Given 05/13/2025 8:41 AM EDT 324 mg finasteride (Proscar) tablet 5 mg 5 mg, Oral, Daily, First dose on 05/06/25 at 1245, Until Discontinued, Routine Given 05/18/2025 9:06 AM EST 5 mg Given 05/17/2025 9:01 AM EST 5 mg Given 05/16/2025 8:56 AM EST 5 mg fluticasone (Flonase) nasal spray 2 spray 2 spray, Each Nostril, Daily, First dose on 05/06/25 at 1245, Until Discontinued, Routine Given 05/16/2025 9:07 AM EST 2 sprays Given 05/14/2025 8:35 AM EST 2 sprays Given 05/13/2025 8:43 AM EDT 2 sprays gabapentin (Neurontin) capsule 600 mg 600 mg, Oral, 3 times daily, First dose on Thu04/28/25 at 0900, Until Discontinued Given 05/18/2025 9:06 AM EST 600 mg Given 05/17/2025 8:04 PM EST 600 mg Given 05/17/2025 5:00 PM EST 600 mg glucagon (human recombinant) injection 1 mg 1 mg, Intramuscular, Every 15 min PRN, Starting on Thu04/28/25 at 0706, Until Thu05/18/25 at 1348, Routine, low blood sugar per Hypoglycemia Prevention and Treatment protocol glucose (Glutose) 40 % oral gel 15-30 grams of glucose 15-30 grams of glucose, Sublingual, Every 15 min PRN, Starting on Thu04/28/25 at 0706, Until Thu05/18/25 at 1348, Routine, low blood sugar, per Hypoglycemia Prevention and Treatment protocol guaiFENesin (Mucinex) 12 hr tablet 600 mg 600 mg, Oral, 2 times daily PRN, Starting on Thu05/04/25 at 1608, Until Thu05/18/25 at 1348, Routine, cough Given 05/04/2025 4:25 PM EDT 600 mg HYDROmorphone (Dilaudid) injection 0.5 mg 0.5 mg, Intravenous, Once, 1 dose, On Thu04/28/25 at 0210, STAT Given 04/28/2025 2:12 AM EDT 0.5 mg HYDROmorphone (Dilaudid) injection 1 mg 1 mg, Intravenous, Once, 1 dose, On Thu04/27/25 at 2300, STAT Given 04/27/2025 11:00 PM EDT 1 mg insulin lispro (Admelog) 100 units/mL injection - Correction - Very Resistant Dose 0-15 Units, Subcutaneous, 3 times daily with meals, First dose on Thu04/28/25 at 1230, Until Discontinued, Routine Given 05/08/2025 8:23 AM EDT 12 Units Left Upper Arm (Back ) Given 05/07/2025 5:44 PM EDT 15 Units Le ft Lower Abdomen Given 05/07/2025 12:31 PM EDT 15 Units R ight Lower Abdomen insulin lispro (Admelog) 100 units/mL injection - Correction - Very Resistant Dose 0-15 Units, Subcutaneous, 3 times daily with meals, 1 dose, First dose (after last modification) on Thu05/08/25 at 1230, Routine Given 05/08/2025 12:51 PM EDT 9 Units Left Upper Arm (Back ) insulin lispro (Admelog) 100 units/mL injection - Correction - Very Resistant Dose 0-15 Units, Subcutaneous, 3 times daily with meals, First dose on Thu05/10/25 at 1245, Until Discontinued, Routine Given 05/17/2025 5:29 PM EST 3 Units Left Upper Arm (Back ) Given 05/17/2025 12:16 PM EST 3 Units L eft Upper Arm (Back) Given 05/17/2025 9:07 AM EST 6 Units Le ft Upper Arm (Back) insulin lispro (Admelog) injection - Correction - Nighttime Dose 0-3 Units, Subcutaneous, 2 times nightly (2099 & 299), First dose on Thu04/28/25 at 2100, Until Discontinued, Routine Given 05/08/2025 4:00 AM EDT 3 Units Left Upper Arm (Back ) Given 05/07/2025 8:25 PM EDT 3 Units Ri ght Upper Abdomen Given 05/06/2025 8:24 PM EDT 2 Units Ri ght Upper Arm (Back) insulin lispro (Admelog) injection - Correction - Nighttime Dose 0-3 Units, Subcutaneous, 2 times nightly (2099 & 299), First dose on Thu05/10/25 at 2100, Until Discontinued, Routine Given 05/14/2025 3:48 AM EST 2 Units Right Upper Arm (Pawel k) Given 05/13/2025 8:38 PM EDT 1 Units Le ft Lower Abdomen Given 05/12/2025 3:46 AM EDT 2 Units Le ft Lower Abdomen Insulin Lispro (Admelog, HumaLOG) 100 UNIT/ML injection 10 Units 10 Units, Subcutaneous, Once, 1 dose, On 05/07/25 at 0445, Routine Given 05/07/2025 3:53 AM EDT 10 Units Right Upper Arm (Pawel k) Insulin Lispro (Admelog, HumaLOG) 100 UNIT/ML injection 12 Units 12 Units, Subcutaneous, 2 times daily PRN, Starting on 05/06/25 at 1031, Until 05/07/25 at 1605, Routine, overnight snacking Given 05/06/2025 10:33 PM EDT 12 Units Left Upper Arm (Back ) Insulin Lispro (Admelog, HumaLOG) 100 UNIT/ML injection 15 Units 15 Units, Subcutaneous, 3 times daily with meals, First dose on Michaelle 05/11/25 at 1230, Until Discontinued, Routine Given 05/12/2025 8:54 AM EDT 15 Units Left Lower Abdomen Given 05/11/2025 5:23 PM EDT 15 Units Ri ght Upper Arm (Back) Given 05/11/2025 12:38 PM EDT 15 Units R ight Upper Arm (Back) Insulin Lispro (Admelog, HumaLOG) 100 UNIT/ML injection 18 Units 18 Units, Subcutaneous, 2 times daily PRN, Starting on 05/07/25 at 1605, Until 05/08/25 at 0920, Routine, overnight snacking Given 05/07/2025 10:27 PM EDT 18 Units Right Upper Abdomen Insulin Lispro (Admelog, HumaLOG) 100 UNIT/ML injection 20 Units 20 Units, Subcutaneous, 3 times daily with meals, First dose on Thu04/28/25 at 1230, Until Discontinued, Routine Given 05/01/2025 6:06 PM EDT 20 Units Left Upper Arm (Back ) Given 05/01/2025 1:13 PM EDT 20 Units Le ft Lower Abdomen Given 04/30/2025 5:11 PM EDT 20 Units Le ft Upper Arm (Back) Insulin Lispro (Admelog, HumaLOG) 100 UNIT/ML injection 24 Units 24 Units, Subcutaneous, 3 times daily with meals, First dose (after last modification) on Thu05/02/25 at 0845, Until Discontinued, Routine Given 05/02/2025 5:42 PM EDT 24 Units Right Upper Arm (Pawel k) Given 05/02/2025 1:00 PM EDT 24 Units Le ft Upper Arm (Back) Given 05/02/2025 9:12 AM EDT 24 Units Le ft Upper Arm (Back) Insulin Lispro (Admelog, HumaLOG) 100 UNIT/ML injection 30 Units 30 Units, Subcutaneous, 3 times daily with meals, First dose (after last modification) on Thu05/03/25 at 0845, Until Discontinued, Routine Given 05/04/2025 5:04 PM EDT 30 Units Right Upper Arm (Pawel k) Given 05/04/2025 2:03 PM EDT 30 Units Le ft Upper Abdomen Given 05/04/2025 9:54 AM EDT 30 Units Ri ght Upper Abdomen Insulin Lispro (Admelog, HumaLOG) 100 UNIT/ML injection 36 Units 36 Units, Subcutaneous, 3 times daily with meals, First dose (after last modification) on Thu05/05/25 at 0900, Until Discontinued, Routine Given 05/05/2025 12:35 PM EDT 36 Units Right Upper Arm (Pawel k) Given 05/05/2025 9:04 AM EDT 36 Units Ri ght Upper Arm (Back) Insulin Lispro (Admelog, HumaLOG) 100 UNIT/ML injection 44 Units 44 Units, Subcutaneous, 3 times daily with meals, First dose (after last modification) on Thu05/05/25 at 1730, Until Discontinued, Routine Given 05/06/2025 5:29 PM EDT 44 Units Left Lower Abdomen Given 05/06/2025 12:14 PM EDT 44 Units L eft Upper Abdomen Given 05/06/2025 9:10 AM EDT 44 Units Ri ght Lower Abdomen Insulin Lispro (Admelog, HumaLOG) 100 UNIT/ML injection 48 Units 48 Units, Subcutaneous, 3 times daily with meals, First dose (after last modification) on 05/07/25 at 0830, Until Discontinued, Routine Given 05/08/2025 8:23 AM EDT 48 Units Left Upper Arm (Back ) Given 05/07/2025 5:44 PM EDT 48 Units Le ft Lower Abdomen Given 05/07/2025 12:30 PM EDT 48 Units R ight Lower Abdomen Insulin Lispro (Admelog, HumaLOG) 100 UNIT/ML injection 56 Units 56 Units, Subcutaneous, 3 times daily with meals, 1 dose, First dose (after last modification) on 05/08/25 at 1230, Routine Given 05/08/2025 12:51 PM EDT 56 Units Left Upper Arm (Back ) insulin NPH (Isophane) (HumuLIN N,NovoLIN N) injection 20 Units 20 Units, Subcutaneous, Daily, First dose on 05/06/25 at 1230, Until Discontinued, Routine Given 05/06/2025 12:15 PM EDT 20 Units Left Lower Abdomen insulin NPH (Isophane) (HumuLIN N,NovoLIN N) injection 25 Units 25 Units, Subcutaneous, Daily, First dose (after last modification) on 05/07/25 at 1230, Until Discontinued, Routine Given 05/07/2025 1:51 PM EDT 25 Units Right Lower Abdomen insulin NPH (Isophane) (HumuLIN N,NovoLIN N) injection 3 Units 3 Units, Subcutaneous, Once, 1 dose, On 04/30/25 at 1115, Routine Given 04/30/2025 1:59 PM EDT 3 Units Left Lower Abdomen insulin NPH (Isophane) (HumuLIN N,NovoLIN N) injection 30 Units 30 Units, Subcutaneous, 2 times daily, First dose on Thu04/28/25 at 2100, Until Discontinued, Routine Given 04/30/2025 9:30 AM EDT 30 Units Left Upper Arm (Back ) Given 04/29/2025 10:23 PM EDT 30 Units L eft Upper Abdomen Given 04/29/2025 8:29 AM EDT 30 Units Le ft Upper Abdomen insulin NPH (Isophane) (HumuLIN N,NovoLIN N) injection 33 Units 33 Units, Subcutaneous, 2 times daily, First dose (after last modification) on Thu04/30/25 at 2100, Until Discontinued, Routine Given 04/30/2025 8:27 PM EDT 16 Units Left Lower Abdomen insulin NPH (Isophane) (HumuLIN N,NovoLIN N) injection 35 Units 35 Units, Subcutaneous, 2 times daily, First dose (after last modification) on Thu05/01/25 at 1215, Until Discontinued, Routine Given 05/02/2025 9:08 AM EDT 35 Units Right Upper Arm (Pawel k) Given 05/01/2025 8:29 PM EDT 35 Units Le ft Upper Arm (Back) Given 05/01/2025 1:13 PM EDT 35 Units Le ft Lower Abdomen insulin NPH (Isophane) (HumuLIN N,NovoLIN N) injection 35 Units 35 Units, Subcutaneous, Daily, First dose (after last modification) on Thu05/08/25 at 1230, Until Discontinued, Routine Given 05/08/2025 12:50 PM EDT 35 Units Left Upper Arm (Back ) insulin NPH (Isophane) (HumuLIN N,NovoLIN N) injection 42 Units 42 Units, Subcutaneous, 2 times daily, First dose (after last modification) on Thu05/02/25 at 2100, Until Discontinued, Routine Given 05/03/2025 9:19 AM EDT 42 Units Right Upper Abdomen Given 05/02/2025 8:57 PM EDT 42 Units Ri ght Upper Arm (Back) insulin NPH (Isophane) (HumuLIN N,NovoLIN N) injection 50 Units 50 Units, Subcutaneous, 2 times daily, First dose (after last modification) on Thu05/03/25 at 2100, Until Discontinued, Routine Given 05/04/2025 9:44 AM EDT 50 Units Left Upper Abdomen Given 05/03/2025 8:44 PM EDT 50 Units Ri ght Upper Arm (Back) insulin NPH (Isophane) (HumuLIN N,NovoLIN N) injection 60 Units 60 Units, Subcutaneous, 2 times daily, First dose (after last modification) on Michaelle 05/04/25 at 2100, Until Discontinued, Routine Given 05/04/2025 8:17 PM EDT 60 Units Right Lower Abdomen insulin NPH (Isophane) (HumuLIN N,NovoLIN N) injection 65 Units 65 Units, Subcutaneous, 2 times daily, First dose (after last modification) on Thu05/05/25 at 0945, Until Discontinued, Routine Given 05/05/2025 9:45 AM EDT 65 Units Right Upper Arm (Pawel k) insulin NPH (Isophane) (HumuLIN N,NovoLIN N) injection 70 Units 70 Units, Subcutaneous, 2 times daily, First dose (after last modification) on 05/05/25 at 2100, Until Discontinued, Routine Given 05/06/2025 9:10 AM EDT 70 Units Left Lower Abdomen Given 05/05/2025 8:34 PM EDT 70 Units Ri ght Upper Arm (Back) insulin NPH (Isophane) (HumuLIN N,NovoLIN N) injection 75 Units 75 Units, Subcutaneous, 2 times daily, First dose (after last modification) on 05/06/25 at 2100, Until Discontinued, Routine Given 05/06/2025 8:25 PM EDT 75 Units Right Upper Arm (Pawel k) insulin NPH (Isophane) (HumuLIN N,NovoLIN N) injection 80 Units 80 Units, Subcutaneous, 2 times daily, First dose (after last modification) on 05/07/25 at 0900, Until Discontinued, Routine Given 05/08/2025 8:23 AM EDT 80 Units Left Upper Arm (Back ) Given 05/07/2025 8:24 PM EDT 80 Units Ri ght Lower Abdomen Given 05/07/2025 9:30 AM EDT 80 Units Ri ght Upper Arm (Back) insulin regular (HumuLIN R U-500) 500 UNIT/ML CONCENTRATED injection 20 Units 20 Units, Subcutaneous, Daily with breakfast, Administer using a U-500 syringe. (GREEN [employer] SYRINGE). If patient is NPO, contact endocrine prior to administering dose. Note High CONCENTRATION: 500 units/mL, First dose on Thu05/14/25 at 0800 Given 05/15/2025 9:12 AM EST 20 Units Left Lower Abdomen Given 05/14/2025 8:34 AM EST 20 Units Le ft Lower Abdomen insulin regular (HumuLIN R U-500) 500 UNIT/ML CONCENTRATED injection 20 Units 20 Units, Subcutaneous, Daily with dinner, Administer using a U-500 syringe. (GREEN [employer] SYRINGE). If patient is NPO, contact endocrine prior to administering dose. Note High CONCENTRATION: 500 units/mL, First dose on Thu05/14/25 at 1800 Given 05/17/2025 5:33 PM EST 20 Units Left Upper Arm (Back) Given 05/16/2025 5:32 PM EST 20 Units Le ft Upper Arm (Back) Given 05/15/2025 5:22 PM EST 20 Units Ri ght Upper Abdomen insulin regular (HumuLIN R U-500) 500 UNIT/ML CONCENTRATED injection 200 Units 200 Units, Subcutaneous, 2 times daily with meals, Administer using a U-500 syringe. (GREEN [employer] SYRINGE). If patient is NPO, contact endocrine prior to administering dose. Note High CONCENTRATION: 500 units/mL, First dose on Thu05/08/25 at 1730 Given 05/09/2025 8:17 AM EDT 200 Units Right Lower Abdomen Given 05/08/2025 5:53 PM EDT 200 Units Ri ght Upper Arm (Back) insulin regular (HumuLIN R U-500) 500 UNIT/ML CONCENTRATED injection 225 Units 225 Units, Subcutaneous, 2 times daily with meals, Administer using a U-500 syringe. (GREEN [employer] SYRINGE). If patient is NPO, contact endocrine prior to administering dose. Note High CONCENTRATION: 500 units/mL, First dose (after last modification) on Thu05/09/25 at 1730 Given 05/10/2025 5:28 PM EDT 225 Units Right Lower Abdomen Given 05/10/2025 8:14 AM EDT 225 Units Le ft Lower Abdomen Given 05/09/2025 5:40 PM EDT 225 Units Ri ght Lower Abdomen insulin regular (HumuLIN R U-500) 500 UNIT/ML CONCENTRATED injection 250 Units 250 Units, Subcutaneous, 2 times daily with meals, Administer using a U-500 syringe. (GREEN [employer] SYRINGE). If patient is NPO, contact endocrine prior to administering dose. Note High CONCENTRATION: 500 units/mL, First dose (after last modification) on Michaelle 05/11/25 at 0830 Given 05/13/2025 8:44 AM EDT 250 Units Left Lower Abdomen Given 05/12/2025 5:25 PM EDT 250 Units Ri ght Lower Abdomen Given 05/12/2025 8:40 AM EDT 250 Units Le ft Lower Abdomen insulin regular (HumuLIN R U-500) 500 UNIT/ML CONCENTRATED injection 250 Units 250 Units, Subcutaneous, Daily with dinner, Administer using a U-500 syringe. (GREEN [employer] SYRINGE). If patient is NPO, contact endocrine prior to administering dose. Note High CONCENTRATION: 500 units/mL, First dose on 05/13/25 at 1800 Given 05/13/2025 5:14 PM EDT 250 Units Right Lower Abdomen insulin regular (HumuLIN R U-500) 500 UNIT/ML CONCENTRATED injection 250 Units 250 Units, Subcutaneous, Daily with breakfast, Administer using a U-500 syringe. (GREEN [employer]YRINGE). If patient is NPO, contact endocrine prior to administering dose. Note High CONCENTRATION: 500 units/mL, First dose (after last reorder) on 05/14/25 at 0800 Given 05/15/2025 9:11 AM EST 250 Units Left Lower Abdomen Given 05/14/2025 8:33 AM EST 250 Units Le ft Lower Abdomen insulin regular (HumuLIN R U-500) 500 UNIT/ML CONCENTRATED injection 250 Units 250 Units, Subcutaneous, Daily with dinner, Administer using a U-500 syringe. (GREEN [employer] SYRINGE). If patient is NPO, contact endocrine prior to administering dose. Note High CONCENTRATION: 500 units/mL, First dose (after last reorder) on 05/14/25 at 1800 Given 05/17/2025 5:32 PM EST 250 Units Left Upper Arm (Back) Given 05/16/2025 5:33 PM EST 250 Units Le ft Upper Arm (Back) Given 05/15/2025 5:23 PM EST 250 Units Ri ght Upper Abdomen insulin regular (HumuLIN R U-500) 500 UNIT/ML CONCENTRATED injection 250 Units 250 Units, Subcutaneous, Daily with breakfast, Administer using a U-500 syringe. (GREEN [employer] SYRINGE). If patient is NPO, contact endocrine prior to administering dose. Note High CONCENTRATION: 500 units/mL, First dose (after last modification) on Thu05/16/25 at 0800 Given 05/18/2025 9:09 AM EST 250 Units Right Lower Abdomen Given 05/17/2025 9:07 AM EST 250 Units Le ft Upper Arm (Back) Given 05/16/2025 9:03 AM EST 250 Units Le ft Upper Arm (Back) insulin regular (HumuLIN R U-500) 500 UNIT/ML CONCENTRATED injection 30 Units 30 Units, Subcutaneous, Daily with breakfast, Administer using a U-500 syringe. (GREEN [employer] SYRINGE). If patient is NPO, contact endocrine prior to administering dose. Note High CONCENTRATION: 500 units/mL, First dose (after last modification) on Thu05/16/25 at 0800 Given 05/18/2025 9:09 AM EST 30 Units Right Lower Abdomen Given 05/17/2025 9:07 AM EST 30 Units Le ft Upper Arm (Back) Given 05/16/2025 9:04 AM EST 30 Units Le ft Upper Arm (Back) insulin regular (HumuLIN R U-500) 500 UNIT/ML CONCENTRATED injection 60 Units 60 Units, Subcutaneous, Daily before lunch, Administer using a U-500 syringe. (GREEN [employer]YRINGE). If patient is NPO, contact endocrine prior to administering dose. Note High CONCENTRATION: 500 units/mL, First dose on Thu05/12/25 at 1230 Given 05/13/2025 12:04 PM EDT 60 Units Left Lower Abdomen Given 05/12/2025 12:46 PM EDT 60 Units L eft Lower Abdomen insulin regular (HumuLIN R U-500) 500 UNIT/ML CONCENTRATED injection 80 Units 80 Units, Subcutaneous, Daily before lunch, Administer using a U-500 syringe. (GRE[employer]INGE). If patient is NPO, contact endocrine prior to administering dose. Note High CONCENTRATION: 500 units/mL, First dose (after last modification) on Thu05/14/25 at 1230 Given 05/16/2025 1:30 PM EST 80 Units Left Upper Arm (Back) Given 05/15/2025 12:51 PM EST 80 Units R ight Upper Arm (Back) Given 05/14/2025 12:28 PM EST 80 Units L eft Lower Abdomen insulin regular (HumuLIN R U-500) 500 UNIT/ML CONCENTRATED injection 90 Units 90 Units, Subcutaneous, Daily before lunch, Administer using a U-500 syringe. (GREEN [employer] SYRINGE). If patient is NPO, contact endocrine prior to administering dose. Note High CONCENTRATION: 500 units/mL, First dose (after last modification) on Thu05/17/25 at 1230 Given 05/17/2025 12:15 PM EST 90 Units Left Upper Arm (Back) iohexol (OMNIPaque) 300 MG/ML injection 100 mL 100 mL, Intravenous, Once in imaging, 1 dose, Starting on Thu04/27/25 at 2225, Until Thu04/28/25 at 0335, Routine, Imaging Protocol Orders Given 04/28/2025 3:35 AM EDT 100 mL ipratropium-albuterol (Duo-Neb) 0.5-2.5 mg/3 mL nebulizer solution 3 mL 3 mL, Nebulization, Every 4 hours PRN, Starting on Thu05/09/25 at 0820, Until Thu05/18/25 at 1348, Routine, wheezing Kyree powder 1 packet 1 packet, Oral, 2 times daily, 28 doses, First dose on Thu05/02/25 at 2100, Last dose on Thu05/16/25 at 0900, Routine Given 05/16/2025 8:57 AM EST 1 packet Given 05/15/2025 8:01 PM EST 1 packet Given 05/15/2025 9:40 AM EST 1 packet lactated Ringer's infusion 500 mL 500 mL, Intravenous, Once (Bolus), 1 dose, On Thu04/27/25 at 2200, STAT New Bag 04/27/2025 10:35 PM EDT 500 mL LORazepam (Ativan) tablet 1 mg 1 mg, Oral, Daily PRN, Starting on Thu04/28/25 at 0655, Until Thu05/18/25 at 1348, Routine, anxiety Given 04/30/2025 8:31 PM EDT 1 mg Given 04/28/2025 8:49 AM EDT 1 mg magnesium citrate oral solution 296 mL 296 mL, Oral, Once as needed, 1 dose, Starting on Thu05/15/25 at 1120, Until Michaelle 05/18/25 at 1348, Routine, For constipation magnesium oxide (Mag-Ox) tablet 800 mg 800 mg, Oral, Daily, First dose on Thu05/02/25 at 0915, Until Discontinued, Routine Given 05/18/2025 9:0 7 AM EST 800 mg Given 05/17/2025 9:01 AM EST 800 mg Given 05/16/2025 8:54 AM EST 800 mg magnesium sulfate IVPB 2 g 2 g, Intravenous, Once, 1 dose, On Michaelle 04/27/25 at 2220, STAT New 04/27/2025 10:35 PM EDT 2 g 25 mL/hr magnesium sulfate IVPB 2 g 2 g, Intravenous, Once, 1 dose, On Thu05/03/25 at 0930, Routine New Bag 05/03/2025 9:22 AM EDT 2 g 2 5 mL/hr magnesium sulfate IVPB 4 g 4 g, Intravenous, Once, 1 dose, On Thu04/30/25 at 0730, Routine 04/30/2025 8:09 AM EDT 4 g 2 5 mL/hr magnesium sulfate IVPB 4 g 4 g, Intravenous, Once, 1 dose, On Thu05/12/25 at 0600, Routine 05/12/2025 5:28 AM EDT 4 g 2 5 mL/hr meropenem (Merrem) 1 g in sodium chloride 0.9% 100 mL IVPB (vial adapter required) 1 g, Intravenous, Once, 1 dose, On Thu04/28/25 at 0300, at 220 mL/hr, Administer over 30 Minutes, STAT 04/28/2025 2:47 AM EDT 1 g 220 mL/hr meropenem (Merrem) 2 g in sodium chloride 0.9 % 100 mL IVPB 2 g, Intravenous, Every 8 hours, First dose on Thu04/28/25 at 1100, Until Discontinued, at 50 mL/hr, Administer over 3 Hours, Routine New Bag 05/03/2025 12:44 PM EDT 2 g 50 mL/hr New Bag 05/03/2025 4:00 AM EDT 2 g 50 mL/hr New Bag 05/02/2025 8:57 PM EDT 2 g 50 mL/hr metroNIDAZOLE (Flagyl) tablet 500 mg 500 mg, Oral, Every 8 hours, First dose on Thu05/03/25 at 1600, Until Discontinued, Routine Given 05/06/2025 9:07 AM EDT 500 mg Given 05/06/2025 12:47 AM EDT 500 mg Given 05/05/2025 3:42 PM EDT 500 mg miconazole (Micotin) 2 % powder Topical, 2 times daily, First dose on Thu05/02/25 at 1345, Until Discontinued, Routine Given 05/17/2025 8:04 PM EST Given 05/17/2025 9:05 AM EST Given 05/16/2025 8:01 PM EST mupirocin (Bactroban) 2 % ointment 1 Application Each Nostril, 2 times daily, 10 doses, First dose on Thu04/29/25 at 0900, Last dose on Thu05/03/25 at 2100, Routine Given 05/03/2025 8:39 PM EDT 1 Application Given 05/03/2025 9:22 AM EDT 1 Application Given 05/02/2025 8:58 PM EDT 1 Application oxyCODONE (Roxicodone) immediate release tablet 5 mg 5 mg, Oral, Every 6 hours PRN, Starting on Thu04/28/25 at 0702, Until 04/29/25 at 0754, Routine, moderate pain, severe pain Given 04/29/2025 4:35 AM EDT 5 mg Given 04/28/2025 10:31 PM EDT 5 mg Given 04/28/2025 3:00 PM EDT 5 mg oxyCODONE (Roxicodone) immediate release tablet 5 mg 5 mg, Oral, Every 4 hours PRN, Starting on 04/29/25 at 0754, Until Michaelle 05/18/25 at 1348, Routine, moderate pain, severe pain Given 05/18/2025 9:07 AM EST 5 mg Given 05/17/2025 10:28 PM EST 5 mg Given 05/17/2025 2:24 PM EST 5 mg pantoprazole (Protonix) EC tablet 40 mg 40 mg, Oral, Daily before breakfast, First dose on Thu04/28/25 at 0835, Until Discontinued Given 05/18/2025 9:07 AM EST 40 mg Given 05/17/2025 9:01 AM EST 40 mg Given 05/16/2025 8:55 AM EST 40 mg perflutren lipid microspheres (Definity) injection 16.3 mg 16.3 mg (rounded from 16.1696 mg = 10 mcL/kg 248 kg), Intravenous, Once in imaging, 1 dose, Starting on Thu05/17/25 at 1119, Until Thu05/17/25 at 0944, Routine Given 05/17/2025 9:44 AM EST 16.3 mg polyethylene glycol (Miralax) packet 17 g 17 g, Oral, Daily, First dose on Thu04/28/25 at 0900, Until Discontinued, Routine Given 05/16/2025 8:56 AM EST 17 g Given 05/15/2025 9:40 AM EST 17 g Given 05/11/2025 9:08 AM EDT 17 g potassium chloride (Klor-Con) packet 40 mEq 40 mEq, Oral, Every 4 hours, 2 doses, First dose on Thu05/02/25 at 1845, Last dose on Thu05/02/25 at 2245, Routine Given 05/02/2025 6:50 PM EDT 40 mEq potassium chloride (Klor-Con) packet 40 mEq 40 mEq, Oral, Every 2 hours, 2 doses, First dose on Thu05/03/25 at 0030, Last dose on Thu05/03/25 at 0230, Routine Given 05/03/2025 3:17 AM EDT 40 mEq Given 05/02/2025 11:54 PM EDT 40 mEq potassium chloride CR (Klor-Con) ER tablet 20 mEq 20 mEq, Oral, Once, 1 dose, On Thu04/29/25 at 0845, Routine Given 04/29/2025 8:28 AM EDT 20 mEq potassium chloride CR (Klor-Con) ER tablet 20 mEq 20 mEq, Oral, Once, 1 dose, On Thu05/03/25 at 2015, Routine Given 05/03/2025 8:39 PM EDT 20 mEq potassium chloride CR (Klor-Con) ER tablet 20 mEq 20 mEq, Oral, Once, 1 dose, On Thu05/10/25 at 1015, Routine Given 05/10/2025 12:11 PM EDT 20 mEq potassium chloride CR (Klor-Con) ER tablet 20 mEq 20 mEq, Oral, Once, 1 dose, On 05/13/25 at 1130, Routine Given 05/13/2025 12:02 PM EDT 20 mEq potassium chloride CR (Klor-Con) ER tablet 40 mEq 40 mEq, Oral, Once, 1 dose, On 04/29/25 at 0645, Routine Given 04/29/2025 6:45 AM EDT 40 mEq potassium chloride CR (Klor-Con) ER tablet 40 mEq 40 mEq, Oral, Every 2 hours, 2 doses, First dose on 04/30/25 at 0730, Last dose on 04/30/25 at 0930, Routine Given 04/30/2025 9:54 AM EDT 40 mEq Given 04/30/2025 8:05 AM EDT 40 mEq potassium chloride CR (Klor-Con) ER tablet 40 mEq 40 mEq, Oral, Once, 1 dose, On Thu05/10/25 at 0900, Routine Given 05/10/2025 8:38 AM EDT 40 mEq potassium chloride CR (Klor-Con) ER tablet 40 mEq 40 mEq, Oral, Every 2 hours, 2 doses, First dose on Michaelle 05/11/25 at 0830, Last dose on Michaelle 05/11/25 at 1030, Routine Given 05/11/2025 12:37 PM EDT 40 mEq Given 05/11/2025 9:00 AM EDT 40 mEq potassium chloride CR (Klor-Con) ER tablet 40 mEq 40 mEq, Oral, Every 2 hours, 2 doses, First dose on Thu05/12/25 at 0600, Last dose on Thu05/12/25 at 0800, Routine Given 05/12/2025 8:39 AM EDT 40 mEq Given 05/12/2025 6:22 AM EDT 40 mEq potassium chloride CR (Klor-Con) ER tablet 40 mEq 40 mEq, Oral, Once, 1 dose, On 05/13/25 at 1015, Routine Given 05/13/2025 10:37 AM EDT 40 mEq potassium chloride CR (Klor-Con) ER tablet 40 mEq 40 mEq, Oral, Every 2 hours, 2 doses, First dose on 05/15/25 at 1015, Last dose on 05/15/25 at 1215, Routine Given 05/15/2025 12:52 PM EST 40 mEq Given 05/15/2025 9:41 AM EST 40 mEq Povidone-Iodine 5 % swab solution 1 Application Nasal, Once, 1 dose, On Thu05/01/25 at 0700, Routine Given 05/01/2025 6:51 AM EDT 1 Application rivaroxaban (Xarelto) tablet 20 mg 20 mg, Oral, Daily with dinner, First dose on Thu05/02/25 at 1800, Until Discontinued, Routine Given 05/17/2025 5:29 PM EST 20 mg Given 05/16/2025 5:55 PM EST 20 mg Given 05/15/2025 5:00 PM EST 20 mg semaglutide (Ozempic) injection 0.25 mg 0.25 mg, Subcutaneous, Weekly, 1 dose, First dose on Thu05/12/25 at 1615, Routine Given 05/12/2025 4:37 PM EDT 0.25 mg Left Lower Abdomen sodium chloride (Coos) 0.65 % nasal spray 1 spray 1 spray, Each Nostril, As needed, Starting on 05/06/25 at 1208, Until Thu05/09/25 at 0821, Routine, congestion Given 05/07/2025 3:52 AM EDT 1 spray sodium chloride (Coos) 0.65 % nasal spray 1 spray 1 spray, Each Nostril, Every 2 hour PRN, Starting on Thu05/09/25 at 0821, Until Michaelle 05/18/25 at 1348, Routine, congestion sodium chloride 0.9 % flush 10 mL 10 mL, Intravenous, Every 12 hours, First dose on Thu04/28/25 at 0710, Until Discontinued, Routine Given 05/17/2025 6:17 PM EST 10 mL Given 05/16/2025 6:15 PM EST 10 mL Given 05/15/2025 6:40 PM EST 10 mL sodium chloride 0.9 % flush 10 mL 10 mL, Intravenous, As needed, Starting on Thu04/28/25 at 0658, Until Michaelle 05/18/25 at 1348, Routine, line care sodium chloride 0.9 % flush 10 mL 10 mL, Intravenous, Every 12 hours, First dose on Thu05/01/25 at 0700, Until Discontinued, Routine, Holding - Preprocedure Given 05/01/2025 6:5 1 AM EDT 10 mL spironolactone (Aldactone) tablet 100 mg 100 mg, Oral, Daily, First dose on Thu04/28/25 at 0900, Until Discontinued Given 05/18/2025 9:06 AM EST 100 mg Given 05/17/2025 9:02 AM EST 100 mg Given 05/16/2025 8:56 AM EST 100 mg tamsulosin (Flomax) 24 hr capsule 0.4 mg 0.4 mg, Oral, Daily, First dose on Thu04/28/25 at 0900, Until Discontinued, Routine Given 05/18/2025 9:0 6 AM EST 0.4 mg Given 05/17/2025 9:01 AM EST 0.4 mg Given 05/16/2025 8:55 AM EST 0.4 mg traZODone (Desyrel) tablet 100 mg 100 mg, Oral, Nightly, First dose on Thu04/28/25 at 2100, Until Discontinued, Routine Given 05/09/2025 8:2 8 PM EDT 100 mg Given 05/08/2025 8:46 PM EDT 100 mg Given 05/07/2025 8:24 PM EDT 100 mg venlafaxine XR (Effexor-XR) 24 hr capsule 150 mg 150 mg, Oral, Daily, First dose on Thu04/28/25 at 0900, Until Discontinued Given 05/18/2025 9:06 AM EST 150 mg Given 05/17/2025 9:00 AM EST 150 mg Given 05/16/2025 8:54 AM EST 150 mg documented in this encounter Active and Recently Administered Medications Times are shown in EST. Scheduled Medication Order 05/16/2025 05/17/2025 05/18/2025 atorvastatin (Lipitor) tablet 40 mg 40 mg, Oral, Nightly, First dose on Thu04/28/25 at 2100, Until Discontinued, Routine 2000 (Given - Provider: Ivan Slaughter RN) 2003 (Given - Provider: Ivan Slaughter RN) bisoprolol (Zebeta) tablet 10 mg (CANCELED) 10 mg, Oral, 2 times daily, First dose (after last modification) on Thu05/07/25 at 0930, Until Discontinued, Routine 08 (Given - Provider: Deepthi Herman RN) bisoprolol (Zebeta) tablet 10 mg 10 mg, Oral, Daily, First dose (after last modification) on Thu05/17/25 at 0900, Until Discontinued, Routine 0900 (Given - Provider: Deepthi Herman RN) 09 (Given - Provider: Kylee Gonzalez RN) bumetanide (Bumex) tablet 4 mg 4 mg, Oral, 3 times daily, First dose on Thu04/28/25 at 0900, Until Discontinued, Routine 0856 (Given - Provider: Deepthi Herman RN)1626 (Given - Provider: Deepthi Herman RN)1999 (Given - Provider: Ivan Slaughter RN) 09 (Given - Provider: Deepthi Herman RN)1700 (Given - Provider: Deepthi Herman RN)2003 (Given - Provider: Ivan Slaughter RN) 09 (Given - Provider: Kylee Gonzalez RN) cariprazine (Vraylar) capsule 3 mg 3 mg, Oral, Daily, First dose on Thu04/28/25 at 0900, Until Discontinued 0857 (Given - Provider: Deepthi Herman RN) 09 (Given - Provider: Deepthi Herman RN) 906 (Given - Provider: Kylee Gonzalez RN) dilTIAZem CD (Cardizem CD) 24 hr capsule 120 mg 120 mg, Oral, Daily, First dose on Thu04/28/25 at 0900, Until Discontinued, Routine 0856 (Given - Provider: Deepthi Herman RN) 09 (Given - Provider: Deepthi Herman RN) 905 (Given - Provider: Kylee Gonzalez RN) ferrous sulfate EC tablet 324 mg 324 mg, Oral, Every other day, First dose on Thu05/11/25 at 0900, Until Discontinued, Routine 09 (Given - Provider: Deepthi Herman RN) finasteride (Proscar) tablet 5 mg 5 mg, Oral, Daily, First dose on Thu05/06/25 at 1245, Until Discontinued, Routine 0856 (Given - Provider: Deepthi Herman RN) 09 (Given - Provider: Deepthi Herman RN) 09 (Given - Provider: Kylee Gonzalez RN) fluticasone (Flonase) nasal spray 2 spray 2 spray, Each Nostril, Daily, First dose on Thu05/06/25 at 1245, Until Discontinued, Routine 0907 (Given - Provider: Deepthi Herman RN) 0905 (Not Given - Provider: Deepthi Herman RN - Reason: Patient/family refused) 1106 (Not Given - Provider: Kylee Gonzalez RN - Reason: Hold for condition: must add comment - Comment: Pt to discharge) gabapentin (Neurontin) capsule 600 mg 600 mg, Oral, 3 times daily, First dose on Thu04/28/25 at 0900, Until Discontinued 0855 (Given - Provider: Deepthi Herman RN)1626 (Given - Provider: Deepthi Herman RN)1999 (Given - Provider: Ivan Slaughter RN) 0900 (Given - Provider: Deepthi Herman RN)1700 (Given - Provider: Deepthi Herman RN)2003 (Given - Provider: Ivan Slaughter RN) 0906 (Given - Provider: Kylee Gonzalez RN) insulin lispro (Admelog) 100 units/mL injection - Correction - Very Resistant Dose 0-15 Units, Subcutaneous, 3 times daily with meals, First dose on Thu05/10/25 at 1245, Until Discontinued, Routine 0905 (Given - Provider: Deepthi Herman RN)1306 (Given - Provider: Deepthi Herman RN)1755 (Given - Provider: Deepthi Herman, LOLA) 0907 (Given - Provider: Deepthi Herman RN)1216 (Given - Provider: Deepthi Herman RN)1729 (Given - Provider: Deepthi Herman, LOLA) 0853 (Not Given - Provider: Kylee Gonzalez RN - Reason: Order parameters not met)1230 (Canceled Entry - Provider: Automatic Discharge Provider - Comment: Automatically canceled at discontinue of medication order) insulin lispro (Admelog) injection - Correction - Nighttime Dose 0-3 Units, Subcutaneous, 2 times nightly (2100 & 0300), First dose on Thu05/10/25 at 2100, Until Discontinued, Routine 223 (Not Given - Provider: Ivan Slaughter RN - Reason: Order parameters not met)2123 (Not Given - Provider: Ivan Slaughter RN - Reason: Order parameters not met) 023 (Not Given - Provider: Ivan Slaughter RN - Reason: Order parameters not met)2003 (Not Given - Provider: Ivan Slaughter RN - Reason: Order parameters not met) 025 (Not Given - Provider: Ivan Slaughter RN - Reason: Order parameters not met) insulin regular (HumuLIN R U-500) 500 UNIT/ML CONCENTRATED injection 20 Units(Linked Group 1) 20 Units, Subcutaneous, Daily with dinner, Administer using a U-500 syringe. (GREEN CAP SYRINGE). If patient is NPO, contact endocrine prior to administering dose. Note High CONCENTRATION: 500 units/mL, First dose on Thu05/14/25 at 1800 1732 (Given - Provider: Deepthi Herman RN) 1733 (Given - Provider: Deepthi Herman RN) insulin regular (HumuLIN R U-500) 500 UNIT/ML CONCENTRATED injection 250 Units(Linked Group 1) 250 Units, Subcutaneous, Daily with dinner, Administer using a U-500 syringe. (GREEN CAP SYRINGE). If patient is NPO, contact endocrine prior to administering dose. Note High CONCENTRATION: 500 units/mL, First dose (after last reorder) on Thu05/14/25 at 1800 1733 (Given - Provider: Deepthi Herman RN) 1732 (Given - Provider: Deepthi Herman, LOLA) insulin regular (HumuLIN R U-500) 500 UNIT/ML CONCENTRATED injection 250 Units(Linked Group 2) 250 Units, Subcutaneous, Daily with breakfast, Administer using a U-500 syringe. (GREEN CAP SYRINGE). If patient is NPO, contact endocrine prior to administering dose. Note High CONCENTRATION: 500 units/mL, First dose (after last modification) on Thu05/16/25 at 0800 0903 (Given - Provider: Deepthi Herman RN) 0907 (Given - Provider: Deepthi Herman, LOLA) 0909 (Given - Provider: Kylee Gonzalez RN - Comment: [facility]) insulin regular (HumuLIN R U-500) 500 UNIT/ML CONCENTRATED injection 30 Units(Linked Group 2) 30 Units, Subcutaneous, Daily with breakfast, Administer using a U-500 syringe. (GREEN [employer] SYRINGE). If patient is NPO, contact endocrine prior to administering dose. Note High CONCENTRATION: 500 units/mL, First dose (after last modification) on Thu05/16/25 at 0800 0904 (Given - Provider: Deepthi Herman, LOLA) 0907 (Given - Provider: Deepthi Herman, LOLA) 09 (Given - Provider: Kylee Gonzalez RN - Comment: [facility]) insulin regular (HumuLIN R U-500) 500 UNIT/ML CONCENTRATED injection 80 Units (CANCELED) 80 Units, Subcutaneous, Daily before lunch, Administer using a U-500 syringe. (GREEN CAP SYRINGE). If patient is NPO, contact endocrine prior to administering dose. Note High CONCENTRATION: 500 units/mL, First dose (after last modification) on Thu05/14/25 at 1230 1330 (Given - Provider: Deepthi Herman RN) insulin regular (HumuLIN R U-500) 500 UNIT/ML CONCENTRATED injection 90 Units 90 Units, Subcutaneous, Daily before lunch, Administer using a U-500 syringe. (GREEN CAP SYRINGE). If patient is NPO, contact endocrine prior to administering dose. Note High CONCENTRATION: 500 units/mL, First dose (after last modification) on Thu05/17/25 at 1230 1215 (Given - Provider: Deepthi Herman RN) 1230 (Canceled Entry - Provider: Automatic Discharge Provider - Comment: Automatically canceled at discontinue of medication order) Kyree powder 1 packet (CANCELED) 1 packet, Oral, 2 times daily, 28 doses, First dose on Thu05/02/25 at 2100, Last dose on Thu05/16/25 at 0900, Routine 0857 (Given - Provider: Deepthi Herman, LOLA) magnesium oxide (Mag-Ox) tablet 800 mg 800 mg, Oral, Daily, First dose on Thu05/02/25 at 0915, Until Discontinued, Routine 0854 (Given - Provider: Deepthi Herman, LOLA) 0901 (Given - Provider: Deepthi Herman, LOLA) 09 (Given - Provider: Kylee Gonzalez RN) miconazole (Micotin) 2 % powder Topical, 2 times daily, First dose on Thu05/02/25 at 1345, Until Discontinued, Routine 0907 (Given - Provider: Deepthi Herman, LOLA)2000 (Given - Provider: Ivan Slaughter RN) 09 (Given - Provider: Deepthi Herman RN)2003 (Given - Provider: Ivan Slaughter RN) 1107 (Not Given - Provider: Kylee Gonzalez RN - Reason: Hold for condition: must add comment - Comment: Pt to discharge) pantoprazole (Protonix) EC tablet 40 mg 40 mg, Oral, Daily before breakfast, First dose on Thu04/28/25 at 0835, Until Discontinued 0855 (Given - Provider: Deepthi Herman RN) 0901 (Given - Provider: Deepthi Herman RN) 0907 (Given - Provider: Kylee Gonzalez RN - Comment: [facility]) perflutren lipid microspheres (Definity) injection 16.3 mg (COMPLETED) 16.3 mg (rounded from 16.1696 mg = 10 mcL/kg 248 kg), Intravenous, Once in imaging, 1 dose, Starting on Thu05/17/25 at 1119, Until Thu05/17/25 at 0944, Routine 0944 (Given - Provider: Shantanu Velez) polyethylene glycol (Miralax) packet 17 g 17 g, Oral, Daily, First dose on Thu04/28/25 at 0900, Until Discontinued, Routine 0856 (Given - Provider: Deepthi Herman RN) 0900 (Not Given - Provider: Deepthi Herman RN - Reason: Patient/family refused) 1107 (Not Given - Provider: Kylee Gonzalez RN - Reason: Patient/family refused) rivaroxaban (Xarelto) tablet 20 mg 20 mg, Oral, Daily with dinner, First dose on Thu05/02/25 at 1800, Until Discontinued, Routine 1755 (Given - Provider: Deepthi Herman RN) 1729 (Given - Provider: Deepthi Herman RN) sodium chloride 0.9 % flush 10 mL(Linked Group 3) 10 mL, Intravenous, Every 12 hours, First dose on Thu04/28/25 at 0710, Until Discontinued, Routine 0651 (Canceled Entry - Provider: Ivan Slaughter RN)1815 (Given - Provider: Deepthi Herman RN) 0630 (Canceled Entry - Provider: Ivan Slaughter RN)1817 (Given - Provider: Deepthi Herman RN) 0610 (Canceled Entry - Provider: Ivan Slaughter RN) spironolactone (Aldactone) tablet 100 mg 100 mg, Oral, Daily, First dose on Thu04/28/25 at 0900, Until Discontinued 0856 (Given - Provider: Deepthi Herman RN) 0902 (Given - Provider: Deepthi Herman RN) 0906 (Given - Provider: Kylee Gonzalez RN) tamsulosin (Flomax) 24 hr capsule 0.4 mg 0.4 mg, Oral, Daily, First dose on Thu04/28/25 at 0900, Until Discontinued, Routine 0855 (Given - Provider: Deepthi Herman RN) 0901 (Given - Provider: Deepthi Herman RN) 0906 (Given - Provider: Kylee Gonzalez RN) venlafaxine XR (Effexor-XR) 24 hr capsule 150 mg 150 mg, Oral, Daily, First dose on Thu04/28/25 at 0900, Until Discontinued 0854 (Given - Provider: Deepthi Herman RN) 0900 (Given - Provider: Deepthi Herman RN) 0906 (Given - Provider: Kylee Gonzalez RN) PRN Medication Order 05/16/2025 05/17/2025 05/18/2025 acetaminophen (Tylenol) tablet 1,000 mg 1,000 mg, Oral, Every 6 hours PRN, Starting on Thu05/09/25 at 0820, Until Michaelle 05/18/25 at 1348, Routine, mild pain, headaches, fever, fever > 100.4 0856 (Given - Provider: Deepthi Herman RN)1626 (Given - Provider: Deepthi Herman RN) 0900 (Given - Provider: Deepthi Herman RN) albuterol 108 (90 Base) MCG/ACT inhaler 2 puff 2 puff, Inhalation, Every 4 hours PRN, Starting on Thu05/09/25 at 0820, Until Michaelle 05/18/25 at 1348, Routine, shortness of breath dextrose 10 % (D10W) bolus 125 mL(Linked Group 4) 125 mL, Intravenous, Every 15 min PRN, Starting on Thu04/28/25 at 0706, Until Thu05/18/25 at 1348, Administer over 15 Minutes, Routine, low blood sugar BG 51-89 mg/dL dextrose 10 % (D10W) bolus 250 mL(Linked Group 4) 250 mL, Intravenous, Every 15 min PRN, Starting on Thu04/28/25 at 0706, Until Thu05/18/25 at 1348, Administer over 15 Minutes, Routine, PRN low blood sugar BG =/<50 mg/dL glucagon (human recombinant) injection 1 mg(Linked Group 4) 1 mg, Intramuscular, Every 15 min PRN, Starting on Thu04/28/25 at 0706, Until Thu05/18/25 at 1348, Routine, low blood sugar per Hypoglycemia Prevention and Treatment protocol glucose (Glutose) 40 % oral gel 15-30 grams of glucose(Linked Group 4) 15-30 grams of glucose, Sublingual, Every 15 min PRN, Starting on Thu04/28/25 at 0706, Until Thu05/18/25 at 1348, Routine, low blood sugar, per Hypoglycemia Prevention and Treatment protocol guaiFENesin (Mucinex) 12 hr tablet 600 mg 600 mg, Oral, 2 times daily PRN, Starting on Thu05/04/25 at 1608, Until Thu05/18/25 at 1348, Routine, cough ipratropium-albuterol (Duo-Neb) 0.5-2.5 mg/3 mL nebulizer solution 3 mL 3 mL, Nebulization, Every 4 hours PRN, Starting on Thu05/09/25 at 0820, Until Thu05/18/25 at 1348, Routine, wheezing LORazepam (Ativan) tablet 1 mg 1 mg, Oral, Daily PRN, Starting on Thu04/28/25 at 0655, Until Thu05/18/25 at 1348, Routine, anxiety 0855 (Canceled Entry - Provider: Deepthi Herman RN) magnesium citrate oral solution 296 mL 296 mL, Oral, Once as needed, 1 dose, Starting on Thu05/15/25 at 1120, Until Thu05/18/25 at 1348, Routine, For constipation oxyCODONE (Roxicodone) immediate release tablet 5 mg 5 mg, Oral, Every 4 hours PRN, Starting on 04/29/25 at 0754, Until Michaelle 05/18/25 at 1348, Routine, moderate pain, severe pain 0855 (Given - Provider: Deepthi Herman, RN)1626 (Given - Provider: Deepthi Herman, RN)2224 (Given - Provider: Ivan Slaughter, LOLA) 0902 (Given - Provider: Deepthi Herman, LOLA)1424 (Given - Provider: Deepthi Herman, RN)2228 (Given - Provider: Ivan Slaughter RN) 0907 (Given - Provider: Kylee Gonzalez RN) sodium chloride (Coos) 0.65 % nasal spray 1 spray 1 spray, Each Nostril, Every 2 hour PRN, Starting on Thu05/09/25 at 0821, Until Michaelle 05/18/25 at 1348, Routine, congestion sodium chloride 0.9 % flush 10 mL(Linked Group 3) 10 mL, Intravenous, As needed, Starting on Thu04/28/25 at 0658, Until Michaelle 05/18/25 at 1348, Routine, line care Linked Groups Order Group 1: insulin regular (HumuLIN R U-500) 500 UNIT/ML CONCENTRATED injection 250 UnitsJump to med 250 Units, Subcutaneous, Daily with dinner, Administer using a U-500 syringe. (GREEN CAP SYRINGE). If patient is NPO, contact endocrine prior to administering dose. Note High CONCENTRATION: 500 units/mL, First dose (after last reorder) on 05/14/25 at 1800 And insulin regular (HumuLIN R U-500) 500 UNIT/ML CONCENTRATED injection 20 UnitsJump to med 20 Units, Subcutaneous, Daily with dinner, Administer using a U-500 syringe. (GREEN CAP SYRINGE). If patient is NPO, contact endocrine prior to administering dose. Note High CONCENTRATION: 500 units/mL, First dose on Thu05/14/25 at 1800 Group 2: insulin regular (HumuLIN R U-500) 500 UNIT/ML CONCENTRATED injection 250 UnitsJump to med 250 Units, Subcutaneous, Daily with breakfast, Administer using a U-500 syringe. (GREEN CAP SYRINGE). If patient is NPO, contact endocrine prior to administering dose. Note High CONCENTRATION: 500 units/mL, First dose (after last modification) on Thu05/16/25 at 0800 And insulin regular (HumuLIN R U-500) 500 UNIT/ML CONCENTRATED injection 30 UnitsJump to med 30 Units, Subcutaneous, Daily with breakfast, Administer using a U-500 syringe. (GREEN CAP SYRINGE). If patient is NPO, contact endocrine prior to administering dose. Note High CONCENTRATION: 500 units/mL, First dose (after last modification) on Thu05/16/25 at 0800 Group 3: Insert peripheral IV (CANCELED) Once, On Thu04/28/25 at 0659, For 1 occurrence And Saline lock IV (CANCELED) Once, On Thu04/28/25 at 0659, For 1 occurrence And sodium chloride 0.9 % flush 10 mLJump to med 10 mL, Intravenous, Every 12 hours, First dose on Thu04/28/25 at 0710, Until Discontinued, Routine And sodium chloride 0.9 % flush 10 mLJump to med 10 mL, Intravenous, As needed, Starting on Thu04/28/25 at 0658, Until Michaelle 05/18/25 at 1348, Routine, line care Group 4: glucose (Glutose) 40 % oral gel 15-30 grams of glucoseJump to med 15-30 grams of glucose, Sublingual, Every 15 min PRN, Starting on Thu04/28/25 at 0706, Until Michaelle 05/18/25 at 1348, Routine, low blood sugar, per Hypoglycemia Prevention and Treatment protocol Or dextrose 10 % (D10W) bolus 125 mLJump to med 125 mL, Intravenous, Every 15 min PRN, Starting on Thu04/28/25 at 0706, Until Michaelle 05/18/25 at 1348, Administer over 15 Minutes, Routine, low blood sugar BG 51-89 mg/dL Or dextrose 10 % (D10W) bolus 250 mLJump to med 250 mL, Intravenous, Every 15 min PRN, Starting on Thu04/28/25 at 0706, Until Michaelle 05/18/25 at 1348, Administer over 15 Minutes, Routine, PRN low blood sugar BG =/<50 mg/dL Or glucagon (human recombinant) injection 1 mgJump to med 1 mg, Intramuscular, Every 15 min PRN, Starting on Thu04/28/25 at 0706, Until Michaelle 05/18/25 at 1348, Routine, low blood sugar per Hypoglycemia Prevention and Treatment protocol documented in this encounter Additional Health Concerns Infection Onset Date Last Indicated Resolved Time Respiratory Rule-Out 05/02/2025 05/02/2025 025 3:14 PM EDT Assessment Noted Time PHQ-9 Depression Total Score: 0 09/14/19 2:29 PM EST A fall risk assessment has been complete d for the patient 09/13/2024 2:29 PM EST A Body Mass Index follow-up plan has been documented for the patient 01/11/2025 6:19 PM EDT documented as of this encounter Care Teams Breeder Hen Service Technician Relationship Specialty Start Date End Date Malcolm Hayward APRN [address] [place] [id number] PCP - General 09/21/23 documented as of this encounter
--- OUTSIDE RECORDS SUMMARY | 2025-05-01 06:28 | XMS_ITS | Encounter Summary ---
Author Organization Healthcare Address [address] [id number] Care Team Providers Care Port Surveyor Name Role Phone MainorMalcolm Rodrick DIANA Primary Care Provider [phone] Reason for Visit * Auth/Cert (Routine) Specialty Diagnoses / Procedures Referred By Anish t Referred To Contact Diagnoses Diabetic foot ulcer with osteomyelitis Greg Lee MD [address] [place] [phone] Phone: tel: fax: P[facility] A Emergency Department [address] [place] [phone] Phone: tel: Referral ID Status Reason Start Date Expiration Date Visits Re quested Visits Authorized [id number] 1 1 Encounter Details Date Type Department Care Team (Late st Contact Info) Description 05/01/2025 7:28 AM EDT Anesthesia Event [facility] OPERATING ROOM [address] [place] [phone] Gilberto Rivera MD [address] [place] [phone] Hermilo Qiu MD [address] [place] [address] Anesthesia Record Procedure Summary Procedure Name Responsible [...] any time in the past 12 m [facility], were you homeless or living in a long-term (including now)? No 04/28/2025 [facility] Utilities Answer Date Recorded In the past 12 months has e [employer], gas, oil, or water company threatened to [...] monitoring: continuous pulse ox, heart rate and diagnostics sales developer Block type: adductor canal and popliteal Laterality: [...] portions of the procedure(s) and immediately available [facility] services the entire duration. See resident note for details. * Anesthesia Preprocedure Evaluation - Gilberto Rivera MD - 05/01/2025 7:04 AM EDT Anesthesiologist: Gilberto Rivera MD BUNCH BREAKER MACHINE OPERATOR: Alen Mena CRNA, DENISE Patient: Gonzalo Russell HPI Gonzalo Russell is a 49 y.o. male with body mass index is 76.9 kg/m??. who presents with Diabetic foot ulcer, now for AMPUTATION,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 4th (Right) Procedure Information Date/Time: 05/01/25 07 Procedure: AMPUTATION,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 4th (Right: Toes) Location: [facility] / [place] Surgeons: Mary [...] (NEURONTIN) 600 mg, 3 times daily HYDROcodone-acetaminophen ([place]) 10-325 MG tablet 1 tablet, Every 6 hours PRN Insulin Pen Needle (Pen [place]) 31G X 5 MM [facility] USE TO INJECT [...] ABG No results found for: PHART , CMD3DBI , PO2ART , SO2ART , BEART , DZP3ECB , HCTART , SODIUMART , POTASSIUMART , POCTCL , POCGLU , IONCALART , LACTATE Lab Results Component Value Date HCTSYR 30.1 (L) 04/27/2025 KSYR 2.8 (L) 04/27/2025 CLSYR 88 (L) 04/27/2025 GLUSYR 131 (H) 04/27/2025 CAION 4.2 (L) 04/27/2025 ECHO No echocardiogram results found for the past 12 months PFTs No results found for: PQV1PLB , WGT9VIHM , LOP8MMQ , FVCPRED BP Readings from Last 5 Encounters: 05/01/25 121/76 01/10/25 (!) 156/90 12/17/24 128/65 12/12/24 118/71 09/13/24 (!) 137/90 Physical Exam Airway Mallampati: II Cardiovascular Rhythm: regular Rate: normal Dental Pulmonary (+) decreased breath sounds Neurological Skin Musculoskeletal Extremities Anesthesia Plan ASA 4 Plan was reviewed with: BUNCH BREAKER MACHINE OPERATOR Anesthesia technique(s) discussed with the patient/family: general, [...] Description 05/30/2025 2:40 PM EST Office Visit [facility] [address] [facility] 5th Floor [address] [place] [address] Sheila Marcano PA [address] [facility] [address] [place] [address] 06/14/2025 1:40 PM EST Office Visit [facility] [place] [phone] Gianni Divine Shanika, PICTURE ENLARGER [address] [facility] [address] [place] [address] 06/22/2025 1:40 PM EST Office Visit [facility] [address] [facility] 5th Floor [address] [place] [address] Mary Vicente MD [address] [place] [address] documented as of this encounter [...] monitoring: continuous pulse ox, heart rate and diagnostics sales developer Block type: adductor canal and popliteal Laterality: [...] documented as of this encounter Care Teams Port Surveyor Relationship Specialty Start Date End Date Malcolm Hayward APRN [address] [place] [address] PCP - General 09/21/23 documented as of this encounter
--- OUTSIDE RECORDS SUMMARY | 2025-05-01 06:30 | XMS_ITS | Encounter Summary ---
Author Organization Healthcare Address [address] [id number] Care Team Providers Care Mold Sheet Cleaner Name Role Phone DontaemyrtleMalcolm camejo Rodrick DIANA Primary Care Provider [phone] Reason for Visit * Reason Comments Wound Check * Auth/Cert (Routine) Specialty Diagnoses / Procedures Referred By Anish t Referred To Contact Diagnoses Diabetic foot ulcer with osteomyelitis Greg Lee MD [address] [place] [address] Phone: tel: fax: [facility] Emergency Department [address] [place] [address] Phone: tel: Referral ID Status Reason Start Date Expiration Date Visits Re quested Visits Authorized [id number] 1 1 Encounter Details Date Type Department Care Team (Late st Contact Info) Description 05/01/2025 7:30 AM EDT - 05/01/2025 8:50 AM EDT Surgery [facility] OPERATING ROOM [address] [place] [address] Mary Vicente MD [address] [facility] [address] [place] [address] AMPUTATION,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 4th [...] any time in the past 12 m [facility], were you homeless or living in a long-term (including now)? No 04/28/2025 [facility] Utilities Answer Date Recorded In [...] a day. 5 tablet 05/17/2025 HYDROcodone-acetami nophen ([place]) 10-325 MG tablet Take 1 tablet by mouth every 6 hours as needed for severe pain for up to 3 days. 5 tablet 05/17/2025 05/20/20 25 Insulin Pen Needle (Pen Menlo) 31G X 5 MM misc USE TO [...] exposure provided Taken 05/17/20252227 by Ivan Slaughter RNmanagement professionals Interventions: medication (see MAR) Goal: Optimal Wound [...] Ongoing, Progressing Intervention: Promote Activity and Functional Boyce Flowsheets Taken 05/18/2025 1131 by Kylee Gonzalez [...] DO PCP name and Address: Malcolm Hayward, PAYROLL SECRETARY [address] [place] [address] / [facility] [address] Brief History of Present Illness 49 M [...] extremity. He was accepted for discharge to [facility] rehab facility. Urinary Retention and [...] He was medically stable for discharge to [facility] rehab facility, with recommendations for [...] HYDROcodone-acetaminophen 10-325 MG tablet Commonly known as: [place] Take 1 tablet by mouth every 6 [...] the skin 1 time per week. Pen Menlo 31G X 5 MM [facility] USE TO INJECT [...] Your Medications These medications were sent to [facility] [address] [address] gabapentin 600 MG tablet HYDROcodone-acetaminophen 10-325 MG tablet insulin regular 100 UNIT/ML injection vial insulin regular 500 UNIT/ML CONCENTRATED injection vial Information about where to get these medications is not yet available Ask your nurse or doctor about these medications ferrous sulfate 324 MG tablet delayed-release Discharge Diagnosis Medical Problems Active and Resolved Hospital Problems Hospital Morbid obesity ([facility]) Hypertension Type 2 diabetes Overview Signed 04/14/2022 [...] H 05/30/2025 2:40 PM Sheila Marcano PA [facility] 06/14/2025 1:40 PM Divine Arhcer APRN ENDOTFBNBR [facility] 06/22/2025 1:40 PM Mary Vicente MD [facility] Pertinent Physical Exam At Time of Discharge [...] Note Gonzalo Smalls 49 y.o. male CSN: [id number] Admission: 04/27/2025 9:29 PM Primary Problem: Diabetic foot ulcer Primary Section Plotter Operator: Primary Caregiver: Self Assistance Available at Discharge: Availability of Care Givers (#Hours): 24 hours Housing Circumstances-Z Codes: Housing Circumstances (select all that apply): Low Income (101-300% Federal Poverty Guidlines) - Z596 Discharge Facility/Level of Care Needs: Discharge Facility/Level of Care Needs: 62-Rehab facilty ([facility]) Patient's Choice of Community Agency(s): Patient's Choice of Community Agency(s): [facility] Patient/Family Anticipated Services at Transition: [...] Recieved By: Gonzalo Smalls- the patient Follow-up: [facility] [address] [facility] [id number] Primary care provider (PCP) Malcolm Hayward, PAYROLL SECRETARY [address] [facility] [address] Discharge Transportation: Transportation Anticipated: medical transport Transportation [...] Araceli in admission who confirmed pt's acceptance #[phone]. Pt updated and in agreement with d/c plan. Team and bedside RN updated. Bedside RN to call report to #[phone]. Araceli has access to [facility] and will get d/c [facility] that way. Script for controlled medication to be sent to [place]. Ambulance to transport the pt is [...] Mobility Bed Mobility Exam: Scooting/Bridging Level of Boyce: Contact guard Physical/Nonphysical Assist: Verbal Cues, Minimal cues Assistive Device: Overhead trapeze Bed Mobility Exam: Supine to Sit Level of Boyce: Minimum assist (75% patient's effort) Physical/Nonphysical Assist: HOB elevated, Verbal Cues, Minimal cues Assistive Device: Overhead trapeze Bed Mobility Exam: Sit to Supine Level of Boyce: Stand-by assist Physical/Nonphysical Assist: Verbal Cues, Minimal cues Assistive Device: Overhead trapeze Transfers Transfer Exam: Sit to stand Level of Boyce: Maximum assist (25% patient's effort) Physical/Nonphysical Assist: Verbal Cues, Nonverbal cues (demo/gestures), Additional assist utilized for safety, Set-up required, Minimal cues Assistive Device: Walker, rolling (bariatric) Transfer Exam: Stand to Sit Level of Boyce: Maximum assist (25% patient's effort) Physical/Nonphysical Assist: [...] help from Spouse Level of Mobility Mobility Boyce Independent gait with device History of Falls [...] go, I'm just nervous. Visitors Present No Mix Maker (if applicable) Mix Maker: Not Applicable OBJECTIVE PAIN Pt was without c/o pain at the beginning of this session and throughout the PT treatment. Prior to PROPOSAL MANAGER WRITER's departure: * rest was provided * patient [...] by this therapist: BED MOBILITY Level of Boyce Physical/Non- physical Assist Adaptive Equipment Utilized Rolling/ Turning Contact guard Verbal Cues, Set-up required, Minimal cues Bed rails, Other (TRAVEL COTA) Scooting/ Bridging Contact guard Verbal Cues, Minimal [...] breaks between standing trials. TRANSFERS Level of Boyce Physical/Non- physical Assist Adaptive Equipment Utilized Sit [...] placement, sequencing, weight shifting, appropriate use of TRAVEL COTA, and maintaining NWB on RLE. Tactile cues provided to assist in sequencing and weight shifting. AMBULATION Level of Boyce Distance Adaptive Equipment Utilized Ambulation N/A N/A N/A Comments Unable to side step or progress to forward hop step at bariatric RW level due to inabilityto maintain prolonged standing position while maintaining NWB in RLE. BALANCE Postural Appearance Posture: Within Functional Limits, Forward head Level of Boyce Balance Support Activities Static Sit Standby assist [...] Abduction * Ankle pumps x1-2 sec holds PROPOSAL MANAGER WRITER provided minimal verbal and tactile cueing to [...] overall. Standardized Assessments Standardized Assessments Standardized Assessments: [facility] 6-Clicks Mobility Assessment [facility] 6-Clicks Mobility Assessment Difficulty patient has turning [...] climbing 3-5 steps with a railing?: Unable [facility] 6-Clicks Mobility Assessment Total : 11 PATIENT / FAMILY EDUCATION Patient was educated regarding the PT POC and recommendations regarding discharge planning, as wellas progressively increased time spent out of bed/up to chair, and continued mobilization / ambulation with nursing staff as tolerated to promote increased activity tolerance and Endurance. PROPOSAL MANAGER WRITER providing verbal cues/demonstration for pursed-lip breathing technique to promote improved ventilation, decreased respiratory rate and energy conservation with activity. PROPOSAL MANAGER WRITER stressed to patient the importance of having [...] has been following with urology outpatient at [facility]. They have postulated this to be [...] Ongoing, Progressing Intervention: Promote Activity and Functional Boyce Flowsheets Taken 05/16/20251999 by Ivan Slaughter RN [...] -Diabetes education: completed 05/10 -Follow-up plan: home correctional casework specialist - Dr Anette Kendall -Tentative discharge [...] at $35 per vial. Also discussed contacting [employer] directly for the financial assistance program. -hopefully [...] team via secure chat or page us [phone] during 7a-7p, Thursday-Thursday. For after hours please [...] Ongoing, Progressing Intervention: Promote Activity and Functional Boyce Flowsheets (Taken 05/16/2025 1949) Self-Care Promotion: independence encouraged * Progress Notes - Chayo Jennings RN - 05/16/2025 2:16 PM EST Case Management Adult Progress Note Gonzalo Smalls 49 y.o. male CSN: [id number] Admission: 04/27/2025 9:29 PM Primary Problem: Diabetic foot ulcer Anticipated Discharge Date: 05/18/25 Pt is in a need for rehab placement and was referred and accepted by Merly Espinoza- LOLA CM spoke with Araceli in admission, ph#[phone] who confirmed pts acceptance. Pt updated and [...] Note Gonzalo Smalls 49 y.o. male CSN: [id number] This is a 49 y.o. male patient was admitted to [facility] with the diagnosis of Diabetic [...] Hayward APRN, [facility] is Dr. Garvey in [place], [place]. 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 They have postulated this to be [...] the video go to this web address: [email or web address] Or, scan this QR code with your [...] to gently smooth the nail. Have a auto heater mechanic trim your nails if you can't see [...] remove corns, calluses, or warts by yourself. Fytz-eow-uvqsijh products can burn or damage your skin. [...] your primary care doctor or by a auto heater mechanic. This is a doctor who specializes in foot care. Some diabetes centers have regular foot clinics. Last Reviewed Date: 2024 00:00:00 ?? 9748-3847 [employer]. All rights reserved. This information is not intended as a substitute for professional medical care. Always follow your healthcare professional's instructions. * Ruy Baires - Vivian Garcia RN - 05/16/2025 11:06 AM EST Images from the original note were not included. [id number] Inspecting Your Feet (Diabetes) Xqnq-dx-Zvai: Last Reviewed Date: 2024 00:00:00 ?? 3746-3208 [employer]. All rights reserved. This information is not [...] -Diabetes education: completed 05/10 -Follow-up plan: home correctional casework specialist - Anette Kendall -Tentative discharge recommendations: -pt will need close monitoring by rehab facility provider as changes in diet and activity level maylead to changes in glycemic patterns and insulin requirement NOTE: -patient reports that once the new year hits, he worries about the cost of U500 insulin --> discussed cost through [employer] - should be able to get vials of U500 at $35 per vial. Also discussed contacting [employer] directly for the financial assistance program. -patient with plans to discharge to [facility] once able - need to check with [facility] to see if they are okay with utilizing U500 insulin if patient is able to bring in his own supply Insulin regimen - would like patient to utilize U500 home dosing at [facility] Continue Dexcom G7 CGM Likely continue [...] team via secure chat orpage us at [phone] during 7a-7p, Thursday-Thursday. For after hours please contact the on-call Endocrine Fellow. Thank you for the opportunity to participate in this patient's care. - Reviewed notes by primary team and consulting services to determine appropriate plan of care as in the note. - Discussed plan and management with patient and health promotion educator Time Spent: I personally spent a [...] Note Gonzalo Smalls 49 y.o. male CSN: [id number] Room/Bed 117/117A Nutrition evaluation type: follow-up Reason [...] Supplemental oxygen O2 Delivery Method: Nasal cannula [place] Coma Scale Score: 15 Miguel Ángel Scale [...] Weight Evaluation: Extreme Obesity (BMI > 40) Cranks Body Weight (kg): 80.9 Percent Cranks Body Weight: 311 Adjusted Body Weight (kg): [...] Regular Adult Carbohydrate Restriction: Consistent CHO 2 (5176-1414 Steven, 80 g/meal) Adult Sodium Restriction: 2,000 mg Na Percent Meals Eaten (%): 75-100% of meals Diet Experience and Nutrition History: Diet Education Provided: Will monitor Pertinent home medications: Albuterol, Bumex, Insulin, Metformin, Ozempic, Aldactone Restorationism needs: Nutrition Focused Physical Exam: Physical exam [...] has been following with urology outpatient at [facility]. They have postulated this to be related to his diabetes and have had several voiding trials which have failed. Also has un dergone proctoscopy (?) which was normal. 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 and he [...] plan and management with patient. Selin Lee Farmworker Dairy Division of Hospital Medicine [facility] * Care Plan - Santy [...] Note Gonzalo Smalls 49 y.o. male CSN: [id number] Admission: 04/27/2025 9:29 PM Primary Problem: Diabetic foot ulcer Anticipated Discharge Date: TBD Pt was referred to many SNF in and out of [place]. Few SNF are considering accepting the pt along with [facility], ph#[phone]. LOLA TOVAR spoke with Araceli- admission at [facility]. Araceli is stating that she is checking if they can order lift needed for the pt and will call back. Team aware. LOLA TOVAR will continue to follow and assist as needed. Chayo Jennings RN * Progress Notes - Aileen Leonardo, PAYROLL SECRETARY - 05/15/2025 8:25 AM EST Endocrine - [...] (H) 05/13/2025 I reviewed bg tracing in [facility] glucose timeline 05/15/25 ASSESSMENT Hospital [...] -Diabetes education: completed 05/10 -Follow-up plan: home correctional casework specialist - Anette Kendall -Tentative discharge recommendations: -pt will need close monitoring by rehab facility provider as changes in diet and activity level maylead to changes in glycemic patterns and insulin requirement NOTE: -patient reports that once the new year hits, he worries about the cost of U500 insulin --> discussed cost through [employer] - should be able to get vials of U500 at $35 per vial. Also discussed contacting [employer] directly for the financial assistance program. -patient with plans to discharge to [facility] once able - need to check with [facility] to see if they are okay with utilizing U500 insulin if patient is able to bring in his own supply Insulin regimen - would like patient to utilize U500 home dosing at [facility] Continue Dexcom G7 CGM Likely continue [...] team via secure chat orpage us at [phone] during 7a-7p, Thursday-Thursday. For after hours please [...] mellitus - type 2 -Home medications: CGM: [employer] G7 Insulin regimen: U500 insulin: prescription for [...] -Diabetes education: completed 05/10 -Follow-up plan: home correctional casework specialist - Anette Kendall -Tentative discharge recommendations: -pt will need close monitoring by rehab facility provider as changes in diet and activity level maylead to changes in glycemic patterns and insulin requirement NOTE: -patient reports that once the new year hits, he worries about the cost of U500 insulin --> discussed cost through [employer] - should be able to get vials of U500 at $35 per vial. Also discussed contacting [employer] directly for the financial assistance program. -patient with plans to discharge to [facility] once able - need to check with [facility] to see if they are okay with utilizing U500 insulin if patient is able to bring in his own supply Insulin regimen - would like patient to utilize U500 home dosing at [facility] Continue Dexcom G7 CGM Likely continue [...] via secure chat or page us at [phone] during 7a-7p, Thursday-Thursday. For after hours please [...] Ongoing, Progressing Intervention: Promote Activity and Functional Boyce Flowsheets Taken 05/14/2025 0946 Self-Care Promotion: independence encouraged BADL personal objects within reach BADL personal routines maintained meal set-up provided Taken 05/14/2025 0800 Activity Assistance Provided: assistance, stand-by assistance, 2 people Taken 05/13/2025 0931 Adaptive Equipment Use: used independently Problem: Self-Care Deficit Goal: Improved Ability to Complete Activities of Daily Living Outcome: Ongoing, Progressing Intervention: Promote Activity and Functional Boyce Flowsheets Taken 05/14/2025 0946 Self-Care Promotion: independence [...] has been following with urology outpatient at [facility]. They have postulated this to be related to his diabetes and have had several voiding trials which have failed. Also has un dergone proctoscopy (?) which was normal. 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 and he [...] plan and management with patient. Selin Lee Farmworker Dairy Division of Hospital Medicine [facility] * Care Plan - Asiya Nix RN - 05/13/2025 9:56 PM EDT Problem: Adult Inpatient Plan of Care Goal: Plan of Care Review 05/13/20252153 by Asiya Nix RN Outcome: Ongoing, Progressing 05/13/20252150 by sAiya Nix RN Outcome: Ongoing, Progressing Flowsheets (Taken [...] with pt, pain medication administered 05/13/20252150 by Aisya Nix RN Outcome: Ongoing, Progressing Problem: Self-Care Deficit Goal: Improved Ability to Complete Activities of Daily Living 05/13/20252153 by Asiya Nix RN Outcome: Ongoing, Progressing 05/13/20252150 by Asiya Nix RN Outcome: Ongoing, Progressing Intervention: Promote Activity and Functional Boyce Flowsheets (Taken 05/13/20251999) Activity Assistance Provided: assistance, [...] (H) 05/11/2025 I reviewed bg tracing in [facility] glucose timeline 05/13/25 ASSESSMENT Hospital Course: Gonzalo [...] -Diabetes education: completed 05/10 -Follow-up plan: home correctional casework specialist - Anette Kendall -Tentative discharge recommendations: [...] at $35 per vial. Also discussed contacting [employer] directly for the financial assistance program. -patient with plans to discharge to [facility] once able - need to check with [facility] to see if they are okay with utilizing U500 insulin if patient is able to bring in his own supply Insulin regimen - would like patient to utilize U500 home dosing at [facility] Continue Dexcom G7 CGM Likely continue [...] via secure chat or page us at [phone] during 7a-7p, Thursday-Thursday. For after hours please [...] Review Outcome: Ongoing, Progressing Flowsheets (Taken 05/13/2025 1128) Progress: improving Plan of Care Reviewed With: [...] Ongoing, Progressing Intervention: Promote Activity and Functional Boyce Flowsheets Taken 05/13/2025 0931 Adaptive Equipment Use: [...] has been following with urology outpatient at [facility]. They have postulated this to be related to his diabetes and have had several voiding trials which have failed. Also has un dergone proctoscopy (?) which was normal. 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 and he [...] plan and management with patient. Selin Lee Farmworker Dairy Division of [facility] * Care Plan - Haritha [...] Ongoing, Progressing Intervention: Promote Activity and Functional Boyce Flowsheets (Taken 05/12/20252128) Activity Assistance Provided: assistance, 2 people Self-Care Promotion: independence encouraged BADL personal objects within reach BADL personal routines maintained meal set-up provided * Progress Notes - Max Alexander - 05/12/2025 4:32 PM EDT Case Management Adult Progress Note Gonzalo Smalls 49 y.o. male CSN: [id number] Admission: 04/27/2025 9:29 PM Primary Problem: Diabetic foot ulcer Anticipated Discharge Date: TBD Plan of care reviewed with pt's care team; and per MD, pt is medically ready for discharge pending placement. SW sent 145 Referral via [facility]. SW will continue to follow-up with pt's MD and care team on their progress and discharge plan. Max Alexander, PROPOSAL MANAGER WRITER, CAM MILLING MACHINE OPERATOR Senior Tank Car Loader/Case Management [facility] * Progress Notes - Selin [...] has been following with urology outpatient at [facility]. They have postulated this to be related to his diabetes and have had several voiding trials which have failed. Also has un dergone proctoscopy (?) which was normal. 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 and he [...] [facility] labs[facility]. Current condition is not [...] plan and management with patient. Selin Lee Farmworker Dairy Division of Hospital Medicine [facility] * Progress Notes - Lynda Choudhury, PAYROLL SECRETARY - 05/12/2025 12:58 PM EDT Endocrine - [...] (H) 05/10/2025 I reviewed bg tracing in [facility] glucose timeline 05/12/25 ASSESSMENT Hospital [...] -Diabetes education: completed 05/10 -Follow-up plan: home correctional casework specialist - Anette Kendall -Tentative discharge recommendations: [...] at $35 per vial. Also discussed contacting [employer] directly for the financial assistance program. -patient with plans to discharge to [facility] once able - need to check with [facility] to see if they are okay with utilizing U500 insulin if patient is able to bring in his own supply Insulin regimen - would like patient to utilize U500 home dosing at [facility] Continue Dexcom G7 CGM Likely continue [...] via secure chat or page us at [phone] during 7a-7p, Thursday-Thursday. For after hours please [...] 1. Other chronic osteomyelitis of right foot ([facility]) 2. Diabetic foot ulcer with osteomyelitis 3. [...] remission, Anxiety disorder, unspecified, Arthritis, Atrial fibrillation ([facility]), CAP (community acquired pneumonia) (05/19/2024), Cellulitis (05/19/2024), [...] understanding. Participants in Care Family/Caregiver Present: No Mix Maker: Not Applicable Presentation Oxygen Therapy: Supplemental [...] of Function Receives Help From: Spouse Mobility Boyce: Independent gait with device ADL Performance: Needs assistance Bathing: Needs assist Upper Body Dressing: Needs assist Lower Body Dressing: Needs assist Grooming: Needs assist Toileting: Independent Eating: Independent Home Management Skills: Needs assist Patient/Family Goals [facility] Objective Pain Pt reported 7/10 [...] Mobility Bed Mobility Exam: Scooting/Bridging Level of Boyce: Contact guard (scooting hips forward to edge of bed) Physical/Nonphysical Assist: Verbal Cues, Minimal cues Assistive Device: Overhead trapeze Bed Mobility Exam: Supine to Sit Level of Boyce: Minimum assist (75% patient's effort) Physical/Nonphysical Assist: HOB elevated, Verbal Cues Assistive Device: Overhead trapeze Bed Mobility Exam: Sit to Supine Level of Boyce: Stand-by assist Physical/Nonphysical Assist: Verbal Cues, Minimal cues Assistive Device: Overhead trapeze Transfers Transfer Exam: Sit to stand Level of Boyce: Maximum assist (25% patient's effort) (x3 reps from edge of bed, good adherence to NWB RLE) Physical/Nonphysical Assist: Verbal Cues, Nonverbal cues (demo/gestures), Additional assist utilized for safety Assistive Device: Walker, rolling (bariatric) Transfer Exam: Stand to Sit Level of Boyce: Maximum assist (25% patient's effort) Physical/Nonphysical Assist: [...] climbing 3-5 steps with a railing?: Unable [facility] 6-Clicks Mobility Assessment Total : 11 Assessment [...] 1. Other chronic osteomyelitis of right foot ([facility]/HCC) 2. Diabetic foot ulcer with osteomyelitis [...] session. Participants in Care Family/Caregiver Present: No Mix Maker: Not Applicable Presentation Oxygen Therapy: Supplemental [...] of Function Receives Help From: Spouse Mobility Boy[place]: Independent gait with device ADL Performance: Needs [...] Mobility Bed Mobility Exam: Scooting/Bridging Level of Boyce: Contact guard (scooting hips forward to edge of bed) Physical/Nonphysical Assist: Verbal Cues, Minimal cues Bed Mobility Exam: Supine to Sit Level of [place]: Minimum assist (75% patient's effort) Physical/Nonphysical Assist: HOB elevated, Verbal Cues Assistive Device: Overhead trapeze Bed Mobility Exam: Sit to Supine Level of Boyce: Stand-by assist Physical/Nonphysical Assist: Verbal Cues, Minimal cues Assistive Device: Overhead trapeze Transfers Transfer Exam: Sit to stand Level of Boyce: Maximum assist (25% patient's effort) (x3 reps from edge of bed, good adherence to NWB RLE) Physical/Nonphysical Assist: Verbal Cues, Nonverbal cues (demo/gestures), Additional assist utilized for safety Assistive Device: Walker, rolling (bariatric) Transfer Exam: Stand to Sit Level of Boyce: Maximum assist (25% patient's effort) Physical/Nonphysical Assist: [...] upper extremity support, Left upper extremity support ([facility] RW) Static Standing-Level of Assistance: [...] x3 reps of sit to stand to [facility] RW with max Ax2 persons [...] Where Assessed: Other (Comment) (in stance at [facility] RW level) Toileting Interventions: Pt with small incontinent BM, required dep A for hygiene to buttocks in stance at [facility] RW level with assistance from [...] a helper. 5 Set-up or Clean-up Assistance [place] sets up or cleans up; patient completes activity. [place] assists only prior to or following the activity. 4 Supervision or touching assistance [place] provides verbal cues and/or touching/steadying and/or contact guard assistance as patient completes activity. Assistance may be provided throughout the activity or intermittently. 3 Partial/Moderate Assistance [place] does LESS THAN HALF the effort. [place] lifts, holds or supports trunk or limbs, but provides less than half the effort. 2 Substantial/Maximal Assistance [place] does MORE THAN HALF the effort. [place] lifts or holds trunkor limbs and provides more than half the effort. 1 Dependent [place] does ALL of the effort. Patient does [...] Note Gonzalo Smalls 49 y.o. male CSN: [id number] Admission: 04/27/2025 9:29 PM Primary Problem: Diabetic foot ulcer Anticipated Discharge Date: TBD RN CM informed by bedside RN that pt's weight was obtained and current weight is 244.3kg (538.5 lbs)- due to pt being over 500 lbs [facility] is not able to accept [...] Note Gonzalo Smalls 49 y.o. male CSN: [id number] Admission: 04/27/2025 9:29 PM Primary Problem: Diabetic foot ulcer Anticipated Discharge Date: TBD LOLA TOVAR f/ u with [facility]ze- admission at [facility]. Suze is stating that they [...] mellitus - type 2 -Home medications: CGM: MedWhat G7 Insulin regimen: U500 insulin: prescription for [...] -Diabetes education: completed 05/10 -Follow-up plan: home correctional casework specialist - Anette Knedall -Tentative discharge recommendations: -pt will need close monitoring by rehab facility provider as changes in diet and activity level maylead to changes in glycemic patterns and insulin requirement NOTE: -patient reports that once the new year hits, he worries about the cost of U500 insulin --> discussed cost through [employer] - should be able to get vials of U500 at $35 per vial. Also discussed contacting [employer] directly for the financial assistance program. -patient with plans to discharge to [facility] once able - need to check with [facility] to see if they are okay with utilizing U500 insulin if patient is able to bring in his own supply Insulin regimen - would like patient to utilize U500 home dosing at [facility] Continue Dexcom G7 CGM Likely continue [...] via secure chat or page us at [phone] during 7a-7p, Thursday-Thursday. For after hours please [...] has been following with urology outpatient at [facility]. They have postulated this to be related to his diabetes and have had several voiding trials which have failed. Also has un dergone proctoscopy (?) which was normal. 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 and he [...] plan and management with patient. Selin Lee [employer] [facility] * Care Plan - Haritha Lam - [...] has been following with urology outpatient at [facility]. They have postulated this to be related to his diabetes and have had several voiding trials which have failed. Also has un dergone proctoscopy (?) which was normal. 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 and he [...] FULL CODE Medically Ready for Discharge:Ready now, [facility] denied admission, referral sent for [facility] [...] plan and management with patient. [facility] [employer] [facility] * Progress Notes - Chayo Jennings RN - 05/10/2025 8:59 AM EDT Case Management Adult Progress Note Gonzalo Smalls 49 y.o. male CSN: [id number] Admission: 04/27/2025 9:29 PM Primary Problem: Diabetic foot ulcer Anticipated Discharge Date: TBD LOLA CM f/u on [facility] referral and was told that [facility] physician declined pt's acceptance to [facility]. RN CMvisited with the pt this [...] mellitus - type 2 -Home medications: CGM: MedWhat G7 Insulin regimen: U500 insulin: prescription for [...] -Diabetes education: completed 05/10 -Follow-up plan: home correctional casework specialist - Anette Kendall -Tentative discharge recommendations: [...] at $35 per vial. Also discussed contacting [employer] directly for the financial assistance program. -patient with plans to discharge to [facility] once able - need to check with [facility] to see if they are okay with utilizing U500 insulin if patient is able to bring in his own supply Insulin regimen - would like patient to utilize U500 home dosing at [facility] Continue Dexcom G7 CGM Likely continue [...] Adult Inpatient Diabetes team via secure chat orpaKextil us at [phone] during 7a-7p, Thursday-Thursday. For after hours please [...] Intervention: Promote Wound Healing Flowsheets (Taken 05/10/2025 0705) Sleep/Rest Enhancement: consistent schedule promoted natural light [...] sit <> stand transfers Visitors Present none Mix Maker (if applicable) N/a OBJECTIVE PAIN Pt [...] Mobility Bed Mobility Exam: Scooting/Bridging Level of Boy[place]: Stand-by assist Physical/Nonphysical Assist: Verbal Cues, Minimal cues Assistive Device: Overhead trapeze Bed Mobility Exam: Supine to Sit Level of [place]: Stand-by assist Physical/Nonphysical Assist: Verbal Cues, Minimal cues, HOB elevated Assistive Device: Overhead trapeze Bed Mobility Exam: Sit to Supine Level of Boy[place]: Stand-by assist Physical/Nonphysical Assist: Verbal Cues, Minimal cues Assistive Device: Overhead trapeze Transfers Transfer Exam: Sit to stand Level of [place]: Maximum assist (25% patient's effort) Physical/Nonphysical Assist: Set-up required, Additional assist utilized for safety, Maximal cues, Verbal Cues, Nonverbal cues (demo/gestures) Assistive Device: Hand held assist Transfer Exam: Stand to Sit Level of [place]: Maximum assist (25% patient's effort) Physical/Nonphysical Assist: [...] session Participants in Care Family/Caregiver Present: No Mix Maker: Not Applicable Presentation Oxygen Therapy: Supplemental [...] sequencing Bed Mobility Exam: Scooting/Bridging Level of [place]: Stand-by assist Physical/Nonphysical Assist: Verbal Cues, Minimal cues Assistive Device: Overhead trapeze Bed Mobility Exam: Supine to Sit Level of [place]: Stand-by assist Physical/Nonphysical Assist: Verbal Cues, Minimal cues, HOB elevated Assistive Device: Overhead trapeze Bed Mobility Exam: Sit to Supine Level of Boyce: Stand-by assist Physical/Nonphysical Assist: Verbal Cues, Minimal [...] placement, sequencing, weight shifting, appropriate use of TRAVEL COTA, and maintaining NWB on LLE. Tactile cues provided to assist in sequencing and weight shifting. Transfer Exam: Sit to stand Level of Boy[place]: Maximum assist (25% patient's effort) Physical/Nonphysical Assist: Set-up required, Additional assist utilized for safety, Maximal cues, Verbal Cues, Nonverbal cues (demo/gestures) Assistive Device: Hand held assist Transfer Exam: Stand to Sit Level of Boyce: Maximum assist (25% patient's effort) Physical/Nonphysical Assist: [...] assistance Static Standing - Interventions: Standing w TRAVEL COTA Therapeutic Activity (40 minutes) See bed mobility, balance, and transfers sections for more detail. Standardized Assessments [facility] 6-Clicks Mobility Assessment Difficulty patient has turning [...] climbing 3-5 steps with a railing?: Unable [facility] 6-Clicks Mobility Assessment Total : 13 Assessment [...] Note Gonzalo Smalls 49 y.o. male CSN: [id number] Room/Bed 117/117A Nutrition evaluation type: follow-up Reason [...] Supplemental oxygen O2 Delivery Method: Nasal cannula [place] Coma Scale Score: 15 Miguel Ángel Scale [...] Weight Evaluation: Extreme Obesity (BMI > 40) Cranks Body Weight (kg): 80.9 Percent Cranks Body Weight: 311 Adjusted Body Weight (kg): [...] Regular Adult Carbohydrate Restriction: Consistent CHO 2 (0621-1604 Steven, 80 g/meal) Adult Sodium Restriction: 2,000 mg Na Percent Meals Eaten (%): 100% of meals Diet Experience and Nutrition History: Diet Education Provided: Will monitor Pertinent home medications: Albuterol, Bumex, Insulin, Metformin, Ozempic, Aldactone Restorationism needs: Nutrition Focused Physical Exam: Physical exam [...] (H) 05/07/2025 I reviewed bg tracing in [facility] glucose timeline 05/09/25 ASSESSMENT Hospital Course: Gonzalo [...] continue to assess need -Follow-up plan: home correctional casework specialist - Anette Kendall -Tentative discharge recommendations: NOTE: -patient reports that once the new year hits, he worries about the cost of U500 insulin -patient with plans to discharge to [facility] once able - need to check with [facility] to see if they are okay with utilizing U500 insulin if patient is able to bring in his own supply Insulin regimen - would like patient to utilize U500 home dosing at [facility] Continue Dexcom G7 CGM Likely continue [...] via secure chat or page us at [phone] during 7a-7p, Thursday-Thursday. For after hours please [...] has been following with urology outpatient at [facility]. They have postulated this to be related to his diabetes and have had several voiding trials which have failed. Also has un dergone proctoscopy (?) which was normal. 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 and he [...] Ready for Discharge:Ready now, awaiting placement to [facility]in [facility] [employer] [facility] Medicine [facility] * Care Plan - [place] [...] (H) 05/06/2025 I reviewed bg tracing in [facility] glucose timeline 05/08/25 ASSESSMENT Hospital [...] mellitus - type 2 -Home medications: CGM: MedWhat G7 Insulin regimen: U500 insulin: prescription for [...] continue to assess need -Follow-up plan: home correctional casework specialist - Anette Kendall -Tentative discharge recommendations: NOTE: -patient reports that once the new year hits, he worries about the cost of U500 insulin -patient with plans to discharge to [facility] once able - need to check with [facility] to see if they are okay with utilizing U500 insulin if patient is able to bring in his own supply Insulin regimen - would like patient to utilize U500 home dosing at [facility] Continue Dexcom G7 CGM Likely continue [...] via secure chat or page us at [phone] during 7a-7p, Thursday-Thursday. For after hours please [...] Note Gonzalo Smalls 49 y.o. male CSN: [id number] Admission: 04/27/2025 9:29 PM Primary Problem: Diabetic [...] acute rehab. RNCM awaiting MD approval from [facility]. Liaison will reach out with answer. Will continue to follow. RNCM will continue to monitor for further discharge needs. Mayra Apodaca RN * Care Plan - Jeevan Shah RN - 05/08/2025 12:43 PM EDT Problem: Wound Goal: Optimal Wound Healing Outcome: Ongoing, Progressing Intervention: Promote Wound Healing Note: See recs, cont wound vac Patient evaluated by [facility] nurse, individualized recommendations placed and care [...] 05/08/2025 10:19 AM Wound Image Wound Assessment [place];Red (moist) Margins Well-defined edges [place]-Wound Assessment Intact [...] the video go to this web address: https://bit.[email or web address] Or, scan this QR code with your smart phone ?? [facility] * Thi Chavarria RN - 05/08/2025 10:55 AM EDT Images from the original note were not included. Type 2 diabetes: 7 Ways to Prevent Sample Tester Grinder Complications - Video Watch this video to [...] the video go to this web address: https://bit.ly/3B1jW5a Or, scan this QR code with your [...] to gently smooth the nail. Have a auto heater mechanic trim your nails if you can't see [...] remove corns, calluses, or warts by yourself. [id number] products can burn or damage your skin. [...] your primary care doctor or by a auto heater mechanic. This is a doctor who specializes in foot care. Some diabetes centers have regular foot clinics. Last Reviewed Date: 2024 00:00:00 ?? 8822-9713 [employer]. All rights reserved. This information is not [...] the video go to this web address: https://bit.CrowdFanatic/[email or web address] Or, scan this QR code with your smart phone ?? [facility] * Consults - Beatriz Hu DO - 05/08/2025 8:38 AM EDTAssociated Order(s): Inpatient consult to Urology Inpatient consult to Urology Consult performed by: Beatriz Hu DO Consult ordered by: Diane Guzman MD [facility] Urology Consult Note 05/08/25 Service Requesting Consultation: Hospital Medicine CC: urinary retention HPI: Gonzalo Smalls is a 49 y.o. male with a past urologic history of urinary retention, recurrent UTIs,BPH, morbid obesity who presented to [facility] ED with diabetic foot ulcer. On 12/21/2024 [...] states. After this he presented to an [facility] urologist Dr. Painting who stated to patient [...] (NEURONTIN) 600 mg, 3 times daily HYDROcodone-acetaminophen ([place]) 10-325 MG tablet 1 tablet, Every 6 hours PRN Insulin Pen Needle (Pen [place]) 31G X 5 MM [facility] USE TO INJECT [...] obesity and uncontrolled diabetes who presented to [facility] ED with diabetic foot ulcer. On 12/21/2024 [...] states. After this he presented to an [facility] urologist Dr. Painting who stated to patient [...] established care with a Dr. Mendenhall an [facility] urologist as this is closer to home [...] established care with a Dr. Mendenhall an [facility] urologist as this is closer to home [...] has been following with urology outpatient at [facility]. They have postulated this to be related to his diabetes and have had several voiding trials which have failed. Also has un dergone proctoscopy (?) which was normal. 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 and he [...] Mobility Bed Mobility Exam: Scooting/Bridging Level of Boyce: Stand-by assist Physical/Nonphysical Assist: Verbal Cues Bed Mobility Exam: Supine to Sit Level of Boyce: Contact guard Physical/Nonphysical Assist: Set-up required, Verbal Cues, Minimal cues Bed Mobility Exam: Sit to Supine Level of Boyce: Minimum assist (75% patient's effort) Physical/Nonphysical Assist: Set-up required, Verbal Cues, Minimal cues Transfers Transfer Exam: Sit to stand Level of Boyce: (Pt attempted with use of bariatric RW; [...] return to supine. Therapeutic Exercise Access Code: [email or web address] HEP printed and pt received copy with [...] with CGA. 04/28/25 2 weeks Written by oTnia Nguyen on 05/07/25 at 11:53 AM. * [...] provided based on observable deficits.* Level of [place]ce Interventions Grooming Patient demo's adequate BUE strength/ROM [...] tasks for toileting routine including transition to [facility] with CGA in prep for BSC transfer. [...] maintain WB status. FUNCTIONAL MOBILITY Level of [place] Physical/Non-physical Assist Adaptive Equipment Utilized Scooting/ Bridging [...] Appearance Posture: Within Functional Limits Level of [place]ce Balance Support Static Sit Standby assist Feet supported Dynamic Sit Standby assisst Feet supported THERAPEUTIC EXERCISE INTERVENTIONS (10 minutes) Treatment Details The patient was educated re: implementation of BUE HEP in order to target muscle groups necessary for functional mobility and ADL independence. HEP printed and each exercise reviewed, pt verbalized understanding. [employer] Access Details (if appropriate) Access Code: [email or web address] URL: [email or web address] Date: 05/07/25 Exercises Included - Seated Elbow [...] has been following with urology outpatient at [facility]. They have postulated this to be related to his diabetes and have had several voiding trials which have failed. Also has un dergone proctoscopy (?) which was normal. 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 and he [...] now * Progress Notes - Aileen Leonardo, PAYROLL SECRETARY - 05/07/2025 7:33 AM EDT Endocrine - [...] continue to assess need -Follow-up plan: home correctional casework specialist - Anette Kendall -Tentative discharge recommendations: NOTE: -patient reports that once the new year hits, he worries about the cost of U500 insulin -patient with plans to discharge to [facility] once able - need to check with [facility] to see if they are okay with utilizing U500 insulin if patient is able to bring in his own supply Insulin regimen - would like patient to utilize U500 home dosing at [facility] Continue Dexcom G7 CGM Likely continue [...] team via secure chat orpage us at [phone] during 7a-7p, Thursday-Thursday. For after hours please [...] has been following with urology outpatient at [facility]. They have postulated this to be related to his diabetes and have had several voiding trials which have failed. Also has un dergone proctoscopy (?) which was normal. 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 and he [...] now * Progress Notes - Aileen Leonardo, PAYROLL SECRETARY - 05/06/2025 7:46 AM EDT Endocrine - Diabetes Consult follow-up: Subjective: 24 hour update: -patient discharging to [facility] around Thursday or Thursday - need to check with [facility] to see if they are okay [...] continue to assess need -Follow-up plan: home correctional casework specialist - Anette Kendall -Tentative discharge recommendations: -patient discharging to [facility] around Thursday or Thursday - need to check with [facility] to see if they are okay [...] team via secure chat orpage us at [phone] during 7a-7p, Thursday-Thursday. For after hours please [...] is in abx, has his CHG and [place] wipes done in this shift Problem: Mobility [...] vascular surgery; wound vac applied 05/03 by [facility] Wound Assessment: Wound 05/01/25 Surgical Toe (Comment which one) Anterior;Right (Active) Date First Assessed/Time First Assessed: 05/01/25 0805 Present on Original Admission: No Hand Hygiene Completed: Yes Primary Wound Type: Surgical Location: Toe (Comment which one) Wound Location Orientation: Anterior;Right Assessments 05/05/2025 11:44 AM Wound Image Wound Assessment [place];Red (moist , full thickness) Margins Well-defined edges [...] no orders noted for wound vac, maessaged [facility] team for guidance. Orders placedfor [...] wound vac in use Patient evaluated by [facility] nurse, individualized recommendations placed and care plan interventions updated; see wound care note for details regarding recommendations to support optimal wound healing. * Progress Notes - Mayra Apodaca RN - 05/05/2025 12:30 PM EDT Case Management Adult Progress Note Gonzalo Smalls 49 y.o. male CSN: [id number] Admission: 04/27/2025 9:29 PM Primary Problem: Diabetic [...] No MDRO isolated 04/27/25 Blood culture NGTD [facility] Culture Data: - 04/25/25: Blood culture [...] pathology. Patient is planned to discharge to [facility]. Recommend close follow-up with vascular surgery [...] PA-C Division of Infectious Diseases Available by SpinNote History, assessment, and plan discussed with ID attending, Dr. Chintan Doran The following complex inpatient infectious disease services were performed today: Complex antimicrobial therapy counseling and treatment [1] Current Facility-Administered Medications Medication Dose Route Frequency Provider Last Rate Last Admin acetaminophen (Tylenol) tablet 1,000 mg 1,000 mg Oral q6h PRN Marjorie Myres MD 1,000 mg at 05/02/252057 albuterol 108 [...] Units Subcutaneous BID PRN Sarah Martinez P, PAYROLL SECRETARY insulin NPH (Isophane) (HumuLIN N,NovoLIN N) injection [...] (H) 05/03/2025 I reviewed bg tracing in [facility] glucose timeline 05/05/25 ASSESSMENT Hospital [...] mellitus - type 2 -Home medications: CGM: MedWhat G7 Insulin regimen: U500 insulin: prescription for [...] via secure chat or page us at [phone] during -7p, Thursday-Thursday. For after hours please [...] precautions. Bed Mobility Exam: Rolling/Turning Level of Boyce: Contact guard Physical/Nonphysical Assist: Verbal Cues, Moderate cues Bed Mobility Exam: Scooting/Bridging Level of [place]: Stand-by assist Bed Mobility Exam: Supine to Sit Level of [place]: Contact guard Physical/Nonphysical Assist: Verbal Cues Bed Mobility Exam: Sit to Supine Level of Boy[place]: Stand-by assist Patient performed rolling bilaterally for placement of lift pad. Transfers Transfer Exam: Sit to stand Level of [place]: (Patient unable to perform without engaging right [...] promote tempo and full ROM. Standardized Assessments [facility] 6-Clicks Mobility Assessment Difficulty patient has turning [...] climbing 3-5 steps with a railing?: Unable [facility] 6-Clicks Mobility Assessment Total : 12 Assessment [...] help from Spouse Level of Mobility Mobility [place] History of Falls ADL Performance Needs assistance [...] to therapy this date. Visitors Present No Mix Maker (if applicable) OBJECTIVE PAIN Pain Score [...] sba for bed mobility tasks. Level of Boyce Adaptive Equipment Utilized Comments Feeding Grooming Setup washing face/hands Bathing Upper Body Dressing Lower Body Dressing Shoe Level of Assistance: Dependent Toileting IADLs Health Management Community Re-Entry BALANCE Postural Appearance INTERVENTIONS Level of Boyce Balance Support Comments Static Sit Standby assist [...] weight shifting to promote safety. Level of Boyce Physical/Non-physical Assist Adaptive Equipment Utilized Rolling/ Turning [...] JOINT INFECTIOUS DISEASE PROGRESS NOTE 05/04/2025 SUBJECTIVE: MRAYANN, patient seen and evaluated this afternoon with [...] No MDRO isolated 04/27/25 Blood culture NGTD [facility] Culture Data: - 04/25/25: Blood culture [...] PA-C Division of Infectious Diseases Available by [facility] Chat History, assessment, and plan discussed with [...] mL IVPB (vial adapter required) 2 g [id number] Diane Guzman MD 36.7 mL/hr at 05/03/25 [...] Units Subcutaneous BID PRN Sarah Martinez P, PAYROLL SECRETARY insulin NPH (Isophane) (HumuLIN N,NovoLIN N) injection 50 Units 50 Units Subcutaneous BID Sarah Martinez PAYROLL SECRETARY 50 Units at 05/03/252043 ipratropium-albuterol (Duo-Neb) 0.5-2.5 [...] (H) 05/02/2025 I reviewed bg tracing in [facility] glucose timeline 05/04/25 ASSESSMENT Hospital [...] mellitus - type 2 -Home medications: CGM: MedWhat G7 Insulin regimen: U500 insulin: prescription for [...] continue to assess need -Follow-up plan: home correctional casework specialist - Anette Kendall -Tentative discharge recommendations: [...] final recommendations Please contact Aileen K Alagusundaramoorthy, PAYROLL SECRETARY OR Adult Inpatient Diabetes team via secure chat orpaKextil us at [phone] during 7a-7p, Thursday-Thursday. For after hours please [...] HOB elevated Taken 05/02/2025 1820 by Santy Garcia RN Skin Protection: incontinence pads utilized Taken [...] Care Flowsheets (Taken 05/01/2025 1130 by Rocío Carndall RN) Medication Review/Management: medications reviewed high-risk medications [...] Kylee Gonzalez RN Outcome: Ongoing, Progressing 05/03/2025 1842 by Kylee Gonzalez RN Outcome: Ongoing, Progressing * Progress Notes - Leidy Velasco MD - 05/03/2025 12:25 PM EDT Images from the original note were not included. [facility] Department of Surgery Division of [...] an 49 y.o. male who presented to [facility] 04/27/2025 with diabetic foot ulcer [...] Note Gonzalo Smalls 49 y.o. male CSN: [id number] Admission: 04/27/2025 9:29 PM Primary Problem: Diabetic [...] No MDRO isolated 04/27/25 Blood culture NGTD [facility] Culture Data: - 04/25/25: Blood culture [...] PA-C Division of Infectious Diseases Available by [employer] History, assessment, and plan discussed with ID [...] Daily Marjorie Myers MD 3 mg at 05/03/2523 DAPTOmycin (Cubicin) 1,500 mg in sodium chloride 0.9 % 100 mL IVPB 10 mg/kg (Adjusted) Intravenous q24h Marjorie Myers MD 280 mL/hr at 05/02/25 1741 1,500 mg at 05/02/25 1741 glucose (Glutose) 40 % oral gel [...] Units Subcutaneous TID with meals Sarah Martinez, PAYROLL SECRETARY 30 Units at 05/03/2520 Insulin Lispro (Admelog, HumaLOG) 100 UNIT/ML injection 6 Units 6 Units Subcutaneous BID PRN Sarah Martinez, PAYROLL SECRETARY insulin NPH (Isophane) (HumuLIN N,NovoLIN N) injection 42 Units 42 Units Subcutaneous BID Silvia Martinezi P, PAYROLL SECRETARY 42 Units at 05/03/25 0919 ipratropium-albuterol (Duo-Neb) [...] Days * Progress Notes - Sarah Martinez, PAYROLL SECRETARY - 05/03/2025 7:55 AM EDT Endocrine - [...] continue to assess need -Follow-up plan: home correctional casework specialist - Anette Kendall -Tentative discharge recommendations: [...] via secure chat or page us at [phone] during 7a-7p, Thursday-Thursday. For after hours please [...] the original note were not included. [facility] Department of Surgery Division of [...] or Manage Infection Flowsheets Taken 05/02/20251819 by Snaty Garcia RN Fever Reduction/Comfort Measures: lightweight clothing [...] degrees Note: See recs Patient evaluated by [facility] nurse, individualized recommendations placed and care [...] JOINT INFECTIOUS DISEASE PROGRESS NOTE 05/02/2025 SUBJECTIVE: FRANCOISLouiseJamie, patient seen and evaluated this afternoon. He [...] No MDRO isolated 04/27/25 Blood culture NGTD [facility] Culture Data: - 04/25/25: Blood culture [...] PA-C Division of Infectious Diseases Available by [employer]Note History, assessment, and plan discussed with ID [...] Daily Marjorie Myers MD 3 mg at 05/02/25907 DAPTOmycin (Cubicin) 1,500 mg in sodium chloride [...] TID Marjorie Myers MD 600 mg at 05/02/25908 insulin lispro (Admelog) 100 units/mL injection - [...] Units 42 Units Subcutaneous BID Sarah Martinez, PAYROLL SECRETARY ipratropium-albuterol (Duo-Neb) 0.5-2.5 mg/3 mL nebulizer solution [...] Note Gonzalo Smalls 49 y.o. male CSN: [id number] Room/Bed 117/117A Nutrition evaluation type: assessment Reason [...] at bedside. 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 No known unintentional weight changes, UBW 570#. [...] Weight Evaluation: Extreme Obesity (BMI > 40) Cranks Body Weight (kg): 80.9 Percent Cranks Body Weight: 311 Adjusted Body Weight (kg): [...] Regular Adult Carbohydrate Restriction: Consistent CHO 1 (1758-0965 Steven, 65 g/meal) Adult Sodium Restriction: 2,000 mg Na Percent Meals Eaten (%): 68% avg x 5 meals Diet Experience and Nutrition History: Diet Education Provided: Will monitor Pertinent home medications: Albuterol, Bumex, Insulin, Metformin, Ozempic, Aldactone Restorationism needs: Nutrition Focused Physical Exam: Physical exam [...] the original note were not included. [facility] Department of Surgery Division of [...] snacking overnight while watching the games including [employer], goldfish, ritz crackers and other snacks -no [...] treatment -plan and management discussed with patient, health promotion educator, bedside RN NOTE: -Patient utilizes U500 insulin pen at home. With the U500 pen, a conversion is not needed. Typically patient's required a 70% reduction in home U500 dosing. 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: home correctional casework specialist - Anette Kendall -Tentative discharge recommendations: [...] via secure chat or page us at [phone] during 7a-7p, Thursday-Thursday. For after hours please [...] and rec amputation vs transfer to [facility] for podiatry input about foot salvage : cannot transfer to [facility] given weight limit, pod team cannot [...] Note Gonzalo Smalls 49 y.o. male CSN: [id number] Admission: 04/27/2025 9:29 PM Primary Problem: Diabetic [...] the original note were not included. [facility] Department of Surgery Division of [...] nursing staff. I have notified senior resident/attending computational sciences professor with any issues or concerns. Leidy [...] bony pathology, duration TBD - Will contact [facility] tomorrow to check on urine culture [...] PA-C Division of Infectious Diseases Available by [facility] Chat History, assessment, and plan discussed with [...] Fuente APRN, DNP 50 mL/hr at 05/01/25 031 2 g at 05/01/25 031 [Transfer Hold] [...] NS (Precedex) 4 mcg/mL infusion Intravenous PRN Muzic Og A, CONDUCTOR ORCHESTRA 8 mcg at 05/01/25 0841 fentaNYL (Sublimaze) injection Intravenous PRN Muzic Og A, CONDUCTOR ORCHESTRA 25 mcg at 05/01/25 0826 lactated Ringer's infusion Intravenous Continuous PRN Muzic, Og A, CONDUCTOR ORCHESTRA New Bag at 05/01/25 0726 midazolam (Versed) injection Intravenous PRN Og Shah CRNA 1 mg at 05/01/25 9230 [2] Allergies Allergen Reactions Vancomycin Other - [...] continue to assess need -Follow-up plan: home correctional casework specialist - Anette Kendall -Tentative discharge recommendations: [...] team via secure chat orpage us at [phone] during 7a-7p, Thursday-Thursday. For after hours please [...] AM EDT Operative Note Date: 05/01/25 Location: [facility] Name: Gonzalo Smalls, : 1975, Diagnoses: Pre-op Diagnosis Other chronic osteomyelitis of right foot (CMS/HCC) Post-op Diagnosis Other chronic osteomyelitis of right foot (CMS/HCC) Procedure(s): Right 5th toe ray amputation Attending Surgeon(s): * Mary Vicente - Primary Soft Top Installer(s): * Paula Martinez MD - Resident - [...] the wound bed. This extended more than senior care to the heel laterally. The underlying skin [...] and rec amputation vs transfer to [facility] for podiatry input about foot salvage : cannot transfer to [facility] given weight limit, pod team cannot [...] kg/m?? Labs and medications reviewed. Blood glucose [id number] Medications: Current Scheduled Medications[1] Current Continuous Medications[2] [...] continue to assess need -Follow-up plan: home correctional casework specialist - Anette Kendall -Tentative discharge recommendations: [...] PGY-4 Division of Endocrinology, Diabetes and Metabolism [facility] Medically Ready for Discharge: [...] the original note were not included. [facility] Department of Surgery Division of [...] is unable to be transferred to [facility] for Podiatry due to weight Edited [...] from last 7 days Lab Units 04/30/2531804/29/25 0304 04/27/25 2137 CREATININE mg/dL 0.77 0.94 0.84 Medications reviewed. Vital signs reviewed. Labs reviewed. Assessment/Plan Assessment and Plan: Gonzalo Smalls is a 49 y.o. male with PMHx notable for class III obesity, CHF (EF 55% in 2021), paroxsymal atrial fibrillation (on Xarelto), HTN, HLD, T2DM, COPD, QUINN on 2LNC at night, recurrent UTIswho presented to [facility] with nonhealing right foot wound. [...] kg/m?? Labs and medications reviewed. Blood glucose [id number] Medications: Current Scheduled Medications[1] Current Continuous [...] continue to assess need -Follow-up plan: home correctional casework specialist - Anette Kendall -Tentative discharge recommendations: [...] PGY-4 Division of Endocrinology, Diabetes and Metabolism [facility] [1] atorvastatin, 40 mg, [...] amputation but we can transfer to [facility] for pod input about the surgery for the DM wound Vas team do not feel a debridement would sufficiently treat his wound. Reached out to APT team and plan to transfer him to [facility] Review of Systems Pain in right [...] and rec amputation vs transfer to [facility] for podiatry input about foot salvage [...] continue to assess need -Follow-up plan: home correctional casework specialist - Anette Kendall -Tentative discharge recommendations: [...] team via secure chat orpage us at [phone] during 7a-7p, Thursday-Thursday. For after hours please [...] Gonzalo Yehuda Smalls 49 y.o. male CSN: [id number] Admission: 04/27/2025 9:29 PM Primary Problem: Diabetic foot ulcer Cook Vegetable reviewed chart and spoke with patient at bedside to complete this Initial Case Management Assessment. PCP: Malcolm Hayward APRN Emergency Contact: Extended Emergency Contact Information Primary Emergency Contact: Maggie Smalls Mobile Relation: Spouse Preferred language: Kiswahili Mix Maker needed? No Insurance: Primary Visit Coverage Payer Plan Sponsor Code Group Number Group Name MARIA DGEE THIAGO SOTOMAYOR/[facility] [id number] [employer] Primary Visit Coverage Subscriber Subscriber ID Subscriber Name Subscriber N Subscriber Address [id number] GONZALO SMALLS [id number] [address] [id number] Secondary Visit Coverage Payer Plan Sponsor Code Group Number Group Name MEDICARE MEDICARE A & B Secondary Visit Coverage Subscriber Subscriber ID Subscriber Name Subscriber N Subscriber Address [id number] GONZALO SMALLS [id number] [address] [place] [address] Patient information: Primary Caregiver: Self Support System: Immediate family Daily Living Activities: Functional Status: Minimum assistance Living Arrangements: Spouse/Significant other, Children (daughter) Type of Residence: Private residence, Single Level ([address]) [address] [address] Smoker in the Home?: No Current DME: [...] line dressing changes Living Will/Advance Directive/Power of Dental Equipment Technician /Guardian: None Additional Comments: Patient admitted for [...] the original note were not included. [facility] Department of Surgery Division of [...] night, recurrent UTIs who presented to the [facility] on 04/27/2025 with right foot wound. [...] Connections: Unknown (04/24/2023) Received from [facility] Family and Community Support Help with [...] History Administered Date(s) Administered Moderna COVID-19 Vaccine (Haulage Engine Operator) 12+ years 01/25/2021, 02/22/2021 Pneumococcal Conjugate [...] a day. 09/05/21 Yes Provider, Historical HYDROcodone-acetaminophen ([place]) 10-325 MG tablet Take 1 tablet by [...] Yes Provider, Historical Insulin Pen Needle (Pen Menlo) 31G X 5 MM misc USE TO [...] 6 hours as needed for pain. Under [place] law, monthly prescriptions (30 days) can be [...] 2LNC at night, recurrent UTIswho presented to [facility] with nonhealing right foot wound. [...] mg Oral Daily before breakfast Sy De LaF uente APRN, DNP40 mg at 04/28/25 0848 polyethylene [...] La Fuente APRN, DNP 150 mgat 04/28/25 0882 Current Outpatient Medications Medication Sig Dispense Refill [...] by mouth 3 times a day. HYDROcodone-acetaminophen ([place]) 10-325 MG tablet Take 1 tablet by [...] by mouth daily. Insulin Pen Needle (Pen Menlo) 31G X 5 MM [facility] USE TO INJECT [...] [X] Family [ ] Friend [ ] Mix Maker [X] Medical records HISTORY OF PRESENT [...] and was treated in theemergency department at [facility] a few days ago where a [...] in the ED 2-3 days ago at [facility]. I contacted [facility] who report blood cultures obtained 04/25/25 are currently no growth to date. Patient does also have a urine culture from that date which is pending, but reported to [...] a day. 09/05/21 Yes Provider, Historical HYDROcodone-acetaminophen ([place]) 10-325 MG tablet Take 1 tablet by [...] Yes Provider, Historical Insulin Pen Needle (Pen Menlo) 31G X 5 MM misc USE TO [...] 6 hours as needed for pain. Under [place] law, monthly prescriptions (30 days) can be [...] Will follow-up blood and urine cultures from [facility] for further ID/susceptibilities, obtained 04/25 - Please obtain adult ID screening labs: Hep A IgG, Hep B sAb, Hep B sAg, and Hep B total core Ab - Plan of care and recommendations discussed with patient's primary provider Thank you for allowing us to participate in this patient's care. ID will follow. Janelle Phan PA-C Division of Infectious Diseases Available by [employer] History, assessment, and plan discussed with ID [...] Sy De La Fuente APRN, DENISE 150 mgat 04/28/25 0881 Current Outpatient Medications Medication Sig Dispense Refill [...] by mouth 3 times a day. HYDROcodone-acetaminophen ([place]) 10-325 MG tablet Take 1 tablet by [...] by mouth daily. Insulin Pen Needle (Pen Menlo) 31G X 5 MM misc USE TO [...] back pain 04/22/2019 Hypertension 02/18/2019 Morbid obesity ([facility]) 12/24/2016 Procedures Past Medical History Patient has a past medical history of Acute kidney injury (05/19/2024), Alcohol abuse, in remission, Anxiety disorder, unspecified, Arthritis, Atrial fibrillation ([facility]), CAP (community acquired pneumonia) (05/19/2024), Cellulitis (05/19/2024), [...] in Care Family/Caregiver Present: Yes Family/Caregiver: Spouse Mix Maker: Not Applicable Presentation Oxygen Therapy: None [...] Needs assist Patient/Family Goals Return [facility] at [facility]. Objective Pain Pt reports 7/10 [...] pain. Bed Mobility Exam: Rolling/Turning Level of Boyce: Maximum assist (25% patient effort) Physical/Nonphysical Assist: Verbal Cues, Moderate cues Assistive Device: Bed rails, Other (TRAVEL COTA) Bed Mobility Exam: Scooting/Bridging Level of Boyce: Maximum assist (25% patient's effort) (up in bed; Lester forward at EOB) Physical/Nonphysical Assist: Verbal Cues, Moderate cues Assistive Device: Bed rails Bed Mobility Exam: Supine to Sit Level of Boyce: Maximum assist (25% patient's effort) Physical/Nonphysical Assist: Verbal Cues, Moderate cues, Set-up required, Additional assist utilized for safety Assistive Device: Other (TRAVEL COTA) Bed Mobility Exam: Sit to Supine Level of Boyce: Maximum assist (25% patient's effort) Physical/Nonphysical Assist: [...] space Standardized Assessments Standardized Assessments Standardized Assessments: [facility] 6-Clicks Mobility Assessment [facility] 6-Clicks Mobility Assessment Difficulty patient has turning [...] climbing 3-5 steps with a railing?: Unable [facility] 6-Clicks Mobility Assessment Total : 8 No [...] remission, Anxiety disorder, unspecified, Arthritis, Atrial fibrillation ([facility]), CAP (community acquired pneumonia) (05/19/2024), Cellulitis [...] CARE Subjective Pt reports Visitors Present Spouse Mix Maker (if applicable) PRESENTATION Oxygen Room Air [...] help from Spouse Level of Mobility Mobility Boyce History of Falls ADL Performance ADL Performance: [...] Mobility Bed Mobility Exam: Rolling/Turning Level of Boyce: Maximum assist (25% patient effort) Physical/Nonphysical Assist: Verbal Cues, Moderate cues Assistive Device: Bed rails, Other (TRAVEL COTA) Bed Mobility Exam: Scooting/Bridging Level of Boyce: Maximum assist (25% patient's effort) (up in bed; Lester forward at EOB) Physical/Nonphysical Assist: Verbal Cues, Moderate cues Assistive Device: Bed rails Bed Mobility Exam: Supine to Sit Level of Boyce: Maximum assist (25% patient's effort) Physical/Nonphysical Assist: Verbal Cues, Moderate cues, Set-up required, Additional assist utilized for safety Assistive Device: Other (TRAVEL COTA) Bed Mobility Exam: Sit to Supine Level of Boyce: Maximum assist (25% patient's effort) Physical/Nonphysical Assist: [...] POC an d discharge recommendations. STANDARDIZED ASSESSMENTS [facility] 6-Click Daily Activities Help from Other: Don/Doff Regular Lower Body Clothings: A lot Help From Other: Bathing: A lot Help From Other: Toileting: A lot Help From Other: Don/Doff Upper Body Clothings: None Help From Other: Grooming: None Help From Other: Eating Meals: None [facility] 6 Click - Daily Activities Score: 18 [...] Lunch: leftovers/baked oatmeal Dinner: take out/cooking - [place] [place], cracker barrel Snacks: peanut butter crackers, cheese [...] continue to assess need -Follow-up plan: home correctional casework specialist - Anette Kendall -Tentative discharge recommendations: [...] team via secure chat orpage us at [phone] during 7a-7p, Thursday-Thursday. For after hours please [...] mg Oral Nightly Sy De La Fuente APRN DENISE venlafaxine XR (Effexor-XR) 24 hr capsule [...] by mouth 3 times a day. HYDROcodone-acetaminophen ([place]) 10-325 MG tablet Take 1 tablet by [...] by mouth daily. Insulin Pen Needle (Pen Menlo) 31G X 5 MM misc USE TO [...] 6:09 AM EDTAssociated Order(s): Consult to [facility] Images from the original note were not included. Consult to [facility] Consult performed by: Sy De La Fuente, [...] 6 hours as needed for pain. Under [place] law, monthly prescriptions (30 days) can be [...] times a day. 09/05/21 Provider, Historical HYDROcodone-acetaminophen ([place]) 10-325 MG tablet Take 1 tablet by mouth every 6 hours as needed. Provider, Historical insulin NPH-insulin regular (NovoLIN 70/30 FlexPen) (70-30) 100 UNIT/ML injection pen Inject 90 Units under the skin 3 times a day before meals. FURTHER REFILLS WILL BE PROVIDED UPON ATTENDANCE OF NEXT OFFICE VISIT 03/29/25 02/22/25 Divine Archer APRN Insulin Pen Needle (Pen Menlo) 31G X 5 [facility] USE TO INJECT INSULIN 3 TIMES PER [...] Value Units Date/Time Blood Culture (Aerobic/Anaerobet Set) [[id number]] Collected: 04/27/252215 Order Status: Completed Specimen: Blood, Venous Updated: 04/28/25111 Culture Culture in lab Blood Culture (Aerobic/Anaerobet Set) [[id number]] Collected: 04/27/256 Order Status: Completed Specimen: Blood, [...] warmth, chills, vomiting. History provided by: Patient well control instructor used: No I agree with the above [...] ???kidney infection?? where he was admitted at [facility]. Patient denies any shortness of breath, fevers, [...] baseline. Comments: Awake Psychiatric: Behavior: Behavior normal. [place] Coma Scale Score: 15 ED Course & [...] records from his previous hospital visit at [facility] which showed he was being treated [...] Status Ordering Provider 04/28/25541 Consult to [facility] Once Specialty: Internal Medicine Provider: [...] RITCHIE 04/27/252106 CBC w/diff STAT Final result RITCHIE, MADHU Blackman 04/27/252106 C-reactive protein STAT Final result ERMA, [...] of Pseudomonas coverage. I spoke with the dry goods clerk to tryto get records from [facility] to see why he was being [...] Foote, acting as a scribe for Dr. Mahdu Ritchie M.D. Attending Attestation: This documentation was recorded by Akbar Foote acting as a scribe in my presence at the time of the encounter and accurately reflects the service I personally performed and thedecisions made by me. Suman Natarajan DO Resident 04/28/25 0670 Suman Natarajan DO Resident 05/04/25 1221 I [...] Anxiety disorder, unspecified Anxiety Arthritis Atrial fibrillation ([facility]) CAP (community acquired pneumonia) 05/19/2024 Cellulitis 05/19/2024 [...] Red man syndrome Jessa Law MD 05/07/25 9687 * ED Triage Notes - Francisco Javier Hansen, RN - 04/27/2025 7:16 PM EDT Pt endorsing diabetic wound to his R foot x2-3 months. documented in this encounter Plan of Treatment Upcoming Encounters Date Type Department Care Team (Late st Contact Info) Description 05/30/2025 2:40 PM EST Office Visit [facility] [address] [place] [address] [place] [address] Sheila Marcano PA [address] [facility] [address] [place] [address] 06/14/2025 1:40 PM EST Office Visit [facility] Endocrinology [address] [place] [phone] Divine Archer P, PAYROLL SECRETARY [address] [place] [address] 06/22/2025 1:40 PM EST Office Visit [facility] [address] [facility] [address] [place] [address] Mary Vicente MD [address] [facility] [address] [place] [address] Scheduled Orders Name Type Priority [...] glucose meter (05/18/2025 8:09 AM EST) Pathologist [facility] POCT Glucose 124(H) 74 - 99 mg/dL [...] 05/18/2025 8:11 AM EST [facility] Dye Automation Operator ID Char Hinojosa 05/18/2025 8:11 AM EST [facility] Device ID [id number] 05/18/2025 8:11 AM EST [facility] Specimen Type POC Capillary 05/18/2025 8:11 AM EST [facility] Blood Capillary blood specimen / Unknown 05/18/2025 8:09 AM EST 05/18/2025 8:11 AM EST Umar R Jay Jay DO LAB POINT OF CARE TE ST DOCKED DEVICE UNSOLICITED RESULTS Final Result Performing Organization Address City/State/[facility] Co de Phone Number [facility] [address] [place] [address] * (ABNORMAL) POCT glucose meter (05/17/2025 7:54 PM EST) Pathologist [facility] POCT Glucose 216(H) 74 - 99 mg/dL [...] 05/17/2025 7:55 PM EST [facility] LAB Dye Automation Operator ID Ron Lal 7:55 PM EST [facility] Device ID [id number] 05/17/2025 7:55 PM EST [facility] Specimen Type POC Capillary 05/17/2025 7:55 PM EST [facility] Blood Capillary blood specimen / Unknown 05/17/2025 7:54 PM EST 05/17/2025 7:55 PM EST [facility] LAB POINT OF CARE TE ST DOCKED DEVICE UNSOLICITED RESULTS Final Result Performing Organization Address City/[facility] Co de Phone Number HEALTHCARE LAB [address] [place] [address] * (ABNORMAL) POCT glucose meter (05/17/2025 5:13 PM EST) Pathologist [facility] POCT Glucose 186(H) 74 - 99 mg/dL [...] Comment 05/17/2025 5:14 PM EST [facility]ARE LAB Dye Automation Operator ID Char Hinojosa 05/17/2025 5:14 PM EST [facility] Device ID [id number] 05/17/2025 5:14 PM EST [facility] Specimen Type POC Capillary 05/17/2025 5:14 PM EST [facility] Blood Capillary blood specimen / Unknown 05/17/2025 5:13 PM EST 05/17/2025 5:14 PM EST [facility] LAB POINT OF CARE TE ST DOCKED DEVICE UNSOLICITED RESULTS Final Result Performing Organization Address City/[facility]/ZIP Co de Phone Number [facility] [address] [place] [address] * ECHO, ADULT TRANSTHORACIC COMPLETE W/ CONTRAST [...] is no recent study available for direct [id number] comparison. Left Ventricle The left ventricle is [...] is no recent study available for direct [id number] comparison. [facility] CV ECHO PROCEDURES Final Result * (ABNORMAL) POCT glucose meter (05/16/2025 5:37 PM EST) POCT Glucose 283(H) 74 - 99 mg/dL 05/16/2025 5:39 PM EST [facility] Comment:Accuracy of a glucos e result [...] for testing. Comment 05/16/2025 5:39 PM EST [facility] LAB Dye Automation Operator ID Char Hinojosa 05/16/2025 5:39 PM EST [facility] LAB Device ID [id number] 05/16/2025 5:39 PM EST [facility] Specimen Type POC Capillary 05/16/2025 5:39 PM EST [facility] Blood Capillary blood specimen / Unknown 05/16/2025 5:37 PM EST 05/16/2025 5:39 PM EST Wily Goyal DO LAB POINT OF CARE TE ST DOCKED DEVICE UNSOLICITED RESULTS Final Result Performing Organization Address City/[facility] Co de Phone Number [facility] [address] [place] [address] * ECG Adult (05/16/2025 3:33 PM EST) EKG DIAGNOSIS CLASS Abnormal MUSE ECG Ventricular Rate 58 BPM MUSE ECG Atrial Rate 58 BPM MUSE ECG PA Interval 184 ms MUSE ECG QRSD Interval 158 ms MUSE ECG QT Interval 496 ms MUSE ECG QTC Interval 486 ms MUSE ECG P [place] 30 degrees MUSE ECG R [place] -35 degrees MUSE ECG T Wave [place] -5 degrees MUSE ECG Diagnosis Sinus bradycardia [...] ECG ORDERABLES Final Result Performing Organization Address [facility] de Phone Number MUSE ECG * (ABNORMAL) POCT glucose meter (05/16/2025 12:06 PM EST) POCT Glucose 161(H) 74 - 99 mg/dL 05/16/2025 12:07 PM EST [facility] Comment:Accuracy of a glucos e result [...] 05/16/2025 12:07 PM EST [facility] Dye Automation Operator ID Char Hinojosa 05/16/2025 12:07 PM EST [facility] Device ID [id number] 05/16/2025 12:07 PM EST [facility] Specimen Type POC Capillary 05/16/2025 12:07 PM EST [facility] Blood Capillary blood specimen / Unknown 05/16/2025 12:06 PM EST 05/16/2025 12:07 PM EST Selin Lee MD LAB POINT OF CARE TE ST DOCKED DEVICE UNSOLICITED RESULTS Final Result Performing Organization Address City/[facility] Co de Phone Number HEALTHCARE LAB [address] [place] [address] * (ABNORMAL) POCT glucose meter (05/16/2025 8:17 AM EST) Pathologist [facility] POCT Glucose 168(H) 74 - 99 mg/dL 05/16/2025 8:21 AM EST [facility] Comment:Accuracy of a glucos e [...] for testing. Comment 05/16/2025 8:21 AM EST [facility] LAB Dye Automation Operator ID Char Hinojosa 05/16/2025 8:21 AM EST [facility] Device ID [id number] 05/16/2025 8:21 AM EST [facility] Specimen Type POC Capillary 05/16/2025 8:21 AM EST [facility] Blood Capillary blood specimen / Unknown 05/16/2025 8:17 AM EST 05/16/2025 8:21 AM EST Selin Lee MD LAB POINT OF CARE TE ST DOCKED DEVICE UNSOLICITED RESULTS Final Result Performing Organization Address City/[facility]/ZIP Co de Phone Number [facility]ARE [facility] [address] [place] [address] * (ABNORMAL) CBC and Differential (05/16/2025 4:08 AM EST) WBC Count 7.97 3.70 - 10.30 10*3/uL LAB HEMATOLOGY METHOD 05/16/2025 4:26 AM EST [facility] RBC Count 4.27(L) 4.60 - 6.10 10*6/uL LAB HEMATOLOGY METHOD 05/16/2025 4:26 AM EST [facility] HGB 9.5(L) 13.7 - 17.5 g/dL LAB HEMATOLOGY METHOD 05/16/2025 4:26 AM [facility] HCT 31.6(L) 40.0 - 51.0 % LAB HEMATOLOGY METHOD 05/16/2025 4:26 AM [facility] LAB Platelet Count 264 155 - 369 10*3/uL LAB HEMATOLOGY METHOD 05/16/2025 4:26 AM [facility] MCV 74(L) 79 - 98 fL LAB HEMATOLOGY METHOD 05/16/2025 4:26 AM [facility] MCH 22.2(L) 26.0 - 32.0 pg LAB HEMATOLOGY METHOD 05/16/2025 4:26 AM [facility] MCHC 30.1(L) 30.7 - 35.5 g/dL LAB HEMATOLOGY METHOD 05/16/2025 4:26 AM [facility] LAB RDW 17.9(H) 11.5 - 14.5 % LAB HEMATOLOGY METHOD 05/16/2025 4:26 AM [facility] LAB MPV 9.2 8.8 - 12.5 fL LAB HEMATOLOGY METHOD 05/16/2025 4:26 AM [facility] nRBC 0.0 <=0.0 per 100 WBCs LAB HEMATOLOGY METHOD 05/16/2025 4:26 AM [facility] Differential Type Automated LAB HEMATOLOGY METHOD 05/16/2025 4:26 AM [facility] Neutrophils % 67 % LAB HEMATOLOGY METHOD 05/16/2025 4:26 AM [facility] Lymphocytes % 16 % LAB HEMATOLOGY METHOD 05/16/2025 4:26 AM [facility] Monocytes % 12 % LAB HEMATOLOGY METHOD 05/16/2025 4:26 AM [facility] Eosinophils % 3 % LAB HEMATOLOGY METHOD 05/16/2025 4:26 AM [facility] Basophils % 1 % LAB HEMATOLOGY METHOD 05/16/2025 4:26 AM [facility] Immature Granulocytes % 1 % LAB HEMATOLOGY METHOD 05/16/2025 4:26 AM [facility] Neutrophils Absolute 5.39 1.60 - 6.10 10*3/uL LAB HEMATOLOGY METHOD 05/16/2025 4:26 AM EST [facility] Lymphocytes Absolute 1.30 1.20 - 3.90 10*3/uL LAB HEMATOLOGY METHOD 05/16/2025 4:26 AM EST [facility] Monocytes Absolute 0.93(H) 0.30 - 0.90 10*3/uL LAB HEMATOLOGY METHOD 05/16/2025 4:26 AM EST [facility] Eosinophils Absolute 0.26 0.00 - 0.50 10*3/uL LAB HEMATOLOGY METHOD 05/16/2025 4:26 AM EST [facility] Basophils Absolute 0.05 0.00 - 0.10 10*3/uL LAB HEMATOLOGY METHOD 05/16/2025 4:26 AM EST [facility] Immature Granulocytes Absolute 0.04 0.00 - 0.06 10*3/uL LAB HEMATOLOGY METHOD 05/16/2025 4:26 AM EST [facility] Blood Venous blood specimen / Unknown Venipuncture / Unknown 05/16/2025 4:08 AM EST 05/16/2025 4:17 AM EST Narrative [facility] - 05/16/2025 4:26 AM EST Therapeutic decision making should be based on absolute values, rather than percentages. us Selin Lee MD LAB BLOOD ORDERABLES Final Re sult Performing Organization Address City/[facility]/ZIP Co de Phone Number [facility] [address] [place] [address] * (ABNORMAL) Magnesium, Plasma (05/16/2025 4:08 AM EST) Magnesium, Plasma 1.8(L) 1.9 - 2.4 mg/dL 05/16/2025 4:48 AM EST [facility] Blood Venous blood specimen / Unknown Venipuncture / Unknown 05/16/2025 4:08 AM EST 05/16/2025 4:16 AM EST us Selin Lee MD LAB BLOOD ORDERABLES Final Re sult Performing Organization Address City/[facility]/ZIP Co de Phone Number [facility] [address] [place] [address] * (ABNORMAL) Basic Metabolic Panel, Plasma (05/16/2025 4:08 AM EST) Glucose, Plasma 168(H) 74 - 99 mg/dL 05/16/2025 4:48 AM EST [facility] BUN, Plasma 19 7 - 21 mg/dL 05/16/2025 4:48 AM EST [facility] Creatinine, Plasma 0.86 0.70 - 1.20 mg/dL 05/16/2025 4:48 AM EST [facility] BUN/Creatinine Ratio 22 05/16/2025 4:48 AM EST [facility] Sodium, Plasma 131(L) 136 - 145 mmol/L 05/16/2025 4:48 AM EST [facility] Potassium, Plasma 3.6 3.6 - 4.9 mmol/L 05/16/2025 4:48 AM EST [facility] Chloride, Plasma 88(L) 97 - 107 mmol/L 05/16/2025 4:48 AM EST [facility] CO2, Plasma 34(H) 22 - 29 mmol/L 05/16/2025 4:48 AM EST [facility] Anion Gap 9 6 - 16 mmol/L 05/16/2025 4:48 AM EST [facility] Total Calcium, Plasma 9.3 8.9 - 10.2 mg/dL 05/16/2025 4:48 AM EST [facility] eGFRcr 107.5 mL/min/1.7 3m*2 05/16/2025 4:48 AM EST [facility] Comment:Reported eGFRcr in m L/min/1.73m2 is based the CKD-EPI 2020 equation that does not use a race coefficient. Blood Venous blood specimen / Unknown Venipuncture / Unknown 05/16/2025 4:08 AM EST 05/16/2025 4:16 AM EST us Selin Lee MD LAB BLOOD ORDERABLES Final Re sult [facility] [address] [place] [address] * Phosphorus, Plasma (05/16/2025 4:08 AM EST) [facility] Phosphorus, Plasma 3.7 2.5 - 4.5 mg/dL 05/16/2025 4:48 AM EST [facility] Blood Venous blood specimen / Unknown Venipuncture / Unknown 05/16/2025 4:08 AM EST 05/16/2025 4:16 AM EST us Selin Lee MD LAB BLOOD ORDERABLES Final Re sult Performing Organization Address City/[facility]/ZIP Co de Phone Number [facility] [address] [place] [address] * (ABNORMAL) POCT glucose meter (05/15/2025 8:00 PM EST) [facility] POCT Glucose 190(H) 74 - 99 [...] 05/15/2025 8:02 PM EST [facility] Dye Automation Operator ID Timo Campbell 8:02 PM EST [facility] Device ID [id number] 05/15/2025 8:02 PM EST [facility] Specimen Type POC Capillary 05/15/2025 8:02 PM EST [facility] Blood Capillary blood specimen / Unknown 05/15/2025 8:00 PM EST 05/15/2025 8:02 PM EST us Selin Lee MD LAB POINT OF CARE TE ST DOCKED DEVICE UNSOLICITED RESULTS Final Result Performing Organization Address City/[facility]/ZIP Co de Phone Number [facility]CARE LAB [address] [place] [address] * (ABNORMAL) POCT glucose meter (05/15/2025 4:52 PM EST) [facility] POCT Glucose 270(H) 74 - 99 mg/dL 05/15/2025 4:53 PM EST [facility] Comment:Accuracy of a glucos e [...] Comment 05/15/2025 4:53 PM EST [facility] LAB Dye Automation Operator ID Tim Hinojosagus 05/15/2025 4:53 PM EST [facility] Device ID [id number] 05/15/2025 4:53 PM EST [facility] Specimen Type POC Capillary 05/15/2025 4:53 PM EST [facility] Blood Capillary blood specimen / Unknown 05/15/2025 4:52 PM EST 05/15/2025 4:53 PM EST Selin Lee MD LAB POINT OF CARE TE ST DOCKED DEVICE UNSOLICITED RESULTS Final Result Performing Organization Address City/State/[facility] Co de Phone Number [facility] [address] [place] [address] * (ABNORMAL) POCT glucose meter (05/15/2025 12:46 PM EST) [facility] POCT Glucose 233(H) 74 - 99 [...] Comment 05/15/2025 12:48 PM EST [facility] Dye Automation Operator ID Santy Garcia 05/15/2025 12:48 PM EST [facility] Device ID [id number] 05/15/2025 12:48 PM EST [facility] Specimen Type POC Capillary 05/15/2025 12:48 PM EST [facility] Blood Capillary blood specimen / Unknown 05/15/2025 12:46 PM EST 05/15/2025 12:48 PM EST us Selin Lee MD LAB POINT OF CARE TE ST DOCKED DEVICE UNSOLICITED RESULTS Final Result Performing Organization Address City/[facility] de Phone Number [facility] [address] [place] [address] * (ABNORMAL) POCT glucose meter (05/15/2025 11:31 [...] for testing. Comment 05/15/2025 11:33 AM EST [facility] Dye Automation Operator ID Char Hinojosa 05/15/2025 11:33 AM EST [facility] Device ID [id number] 05/15/2025 11:33 AM EST [facility] Specimen Type POC Capillary 05/15/2025 11:33 AM EST [facility] Blood Capillary blood specimen / Unknown 05/15/2025 11:31 AM EST 05/15/2025 11:33 AM EST us Selin Lee MD LAB POINT OF CARE TE ST DOCKED DEVICE UNSOLICITED RESULTS Final Result Performing Organization Address City/[facility] de Phone Number [facility] [address] [place] [address] * (ABNORMAL) POCT glucose meter (05/15/2025 8:12 [...] Comment 05/15/2025 8:14 AM EST [facility] LAB Dye Automation Operator ID Char Hinojosa 05/15/2025 8:14 AM EST [facility] Device ID [id number] 05/15/2025 8:14 AM EST [facility] Specimen Type POC Capillary 05/15/2025 8:14 AM EST [facility] Blood Capillary blood specimen / Unknown 05/15/2025 8:12 AM EST 05/15/2025 8:14 AM EST Selin Lee MD LAB POINT OF CARE TE ST DOCKED DEVICE UNSOLICITED RESULTS Final Result [facility] [address] [place] [id number] * (ABNORMAL) CBC and Differential (05/15/2025 2:24 AM EST) WBC Count 8.81 3.70 - 10.30 10*3/uL LAB HEMATOLOGY METHOD 05/15/2025 2:41 AM EST [facility] RBC Count 4.49(L) 4.60 - 6.10 10*6/uL LAB HEMATOLOGY METHOD 05/15/2025 2:41 AM EST [facility] HGB 9.9(L) 13.7 - 17.5 g/dL LAB HEMATOLOGY METHOD 05/15/2025 2:41 AM EST [facility] HCT 33.3(L) 40.0 - 51.0 % LAB HEMATOLOGY METHOD 05/15/2025 2:41 AM EST [facility] Platelet Count 286 155 - 369 10*3/uL LAB HEMATOLOGY METHOD 05/15/2025 2:41 AM EST [facility] MCV 74(L) 79 - 98 fL LAB HEMATOLOGY METHOD 05/15/2025 2:41 AM EST [facility] MCH 22.0(L) 26.0 - 32.0 pg LAB HEMATOLOGY METHOD 05/15/2025 2:41 AM EST [facility] MCHC 29.7(L) 30.7 - 35.5 g/dL LAB HEMATOLOGY METHOD 05/15/2025 2:41 AM EST [facility] RDW 17.8(H) 11.5 - 14.5 % LAB HEMATOLOGY METHOD 05/15/2025 2:41 AM [facility] MPV 9.4 8.8 - 12.5 fL LAB HEMATOLOGY METHOD 05/15/2025 2:41 AM [facility] nRBC 0.0 <=0.0 per 100 WBCs LAB HEMATOLOGY METHOD 05/15/2025 2:41 AM [facility] Differential Type Automated LAB HEMATOLOGY METHOD 05/15/2025 2:41 AM [facility] Neutrophils % 71 % LAB HEMATOLOGY METHOD 05/15/2025 2:41 AM [facility] Lymphocytes % 14 % LAB HEMATOLOGY METHOD 05/15/2025 2:41 AM [facility] Monocytes % 11 % LAB HEMATOLOGY METHOD 05/15/2025 2:41 AM [facility] Eosinophils % 3 % LAB HEMATOLOGY METHOD 05/15/2025 2:41 AM [facility] Basophils % 1 % LAB HEMATOLOGY METHOD 05/15/2025 2:41 AM [facility] Immature Granulocytes % 0 % LAB HEMATOLOGY METHOD 05/15/2025 2:41 AM [facility] Neutrophils Absolute 6.25(H) 1.60 - 6.10 10*3/uL LAB HEMATOLOGY METHOD 05/15/2025 2:41 AM [facility] Lymphocytes Absolute 1.27 1.20 - 3.90 10*3/uL LAB HEMATOLOGY METHOD 05/15/2025 2:41 AM [facility] Monocytes Absolute 0.95(H) 0.30 - 0.90 10*3/uL LAB HEMATOLOGY METHOD 05/15/2025 2:41 AM [facility] Eosinophils Absolute 0.27 0.00 - 0.50 10*3/uL LAB HEMATOLOGY METHOD 05/15/2025 2:41 AM [facility] Basophils Absolute 0.04 0.00 - 0.10 10*3/uL LAB HEMATOLOGY METHOD 05/15/2025 2:41 AM [facility] Immature Granulocytes Absolute 0.03 0.00 - 0.06 10*3/uL LAB HEMATOLOGY METHOD 05/15/2025 2:41 AM [facility] Blood Venous blood specimen / Unknown Venipuncture / Unknown 05/15/2025 2:24 AM EST 05/15/2025 2:33 AM EST Narrative [facility] - 05/15/2025 2:41 AM EST Therapeutic decision making should be based on absolute values, rather than percentages. us Selin Lee MD LAB BLOOD ORDERABLES Final Re sult Performing Organization Address [facility]/ZIP Co de Phone Number [facility] [address] [place] [address] * (ABNORMAL) Magnesium, Plasma (05/15/2025 2:24 AM EST) Magnesium, Plasma 1.8(L) 1.9 - 2.4 mg/dL 05/15/2025 3:03 AM EST [facility] Blood Venous blood specimen / Unknown Venipuncture / Unknown 05/15/2025 2:24 AM EST 05/15/2025 2:32 AM EST us Selin Lee MD LAB BLOOD ORDERABLES Final Re sult Performing Organization Address [facility] Co de Phone Number [facility] [address] [place] [address] * (ABNORMAL) Basic Metabolic Panel, Plasma (05/15/2025 2:24 AM EST) Glucose, Plasma 162(H) 74 - 99 mg/dL 05/15/2025 3:03 AM EST [facility] BUN, Plasma 15 7 - 21 mg/dL 05/15/2025 3:03 AM EST [facility] Creatinine, Plasma 0.91 0.70 - 1.20 mg/dL 05/15/2025 3:03 AM EST [facility] BUN/Creatinine Ratio 16 05/15/2025 3:03 AM EST [facility] Sodium, Plasma 133(L) 136 - 145 mmol/L 05/15/2025 3:03 AM EST [facility] Potassium, Plasma 3.3(L) 3.6 - 4.9 mmol/L 05/15/2025 3:03 AM EST [facility] Chloride, Plasma 87(L) 97 - 107 mmol/L 05/15/2025 3:03 AM EST [facility] CO2, Plasma 37(H) 22 - 29 mmol/L 05/15/2025 3:03 AM EST [facility] Anion Gap 9 6 - 16 mmol/L 05/15/2025 3:03 AM EST [facility] Total Calcium, Plasma 9.2 8.9 - 10.2 mg/dL 05/15/2025 3:03 AM EST [facility] eGFRcr 104.6 mL/min/1.7 3m*2 05/15/2025 3:03 AM EST [facility] Comment:Reported eGFRcr in m L/min/1.73m2 is based the CKD-EPI 2020 equation that does not use a race coefficient. Blood Venous blood specimen / Unknown Venipuncture / Unknown 05/15/2025 2:24 AM EST 05/15/2025 2:32 AM EST us Selin Lee MD LAB BLOOD ORDERABLES Final Re sult Performing Organization Address City/[facility]/ZIP Co de Phone Number [facility] [address] [place] [address] * Phosphorus, Plasma (05/15/2025 2:24 AM EST) Phosphorus, Plasma 3.7 2.5 - 4.5 mg/dL 05/15/2025 3:03 AM EST [facility] Blood Venous blood specimen / Unknown Venipuncture / Unknown 05/15/2025 2:24 AM EST 05/15/2025 2:32 AM EST us Selin Lee MD LAB BLOOD ORDERABLES Final Re sult [facility] [address] [place] [address] * (ABNORMAL) POCT glucose meter (05/14/2025 8:09 PM EST) POCT Glucose 194(H) 74 - 99 mg/dL 05/14/2025 8:11 PM EST [facility] Comment:Accuracy of a glucos e [...] Comment 05/14/2025 8:11 PM EST [facility] Dye Automation Operator ID Stella Coleman 05/14/20 8:11 PM EST [facility] LAB Device ID [id number] 05/14/2025 8:11 PM EST [facility] Specimen Type POC Capillary 05/14/2025 8:11 PM EST [facility] Blood Capillary blood specimen / Unknown 05/14/2025 8:09 PM EST 05/14/2025 8:11 PM EST us Selin Lee MD LAB POINT OF CARE TE ST DOCKED DEVICE UNSOLICITED RESULTS Final Result Performing Organization Address City/[facility]/ZIP Co de Phone Number [facility] [address] [place] [address] * (ABNORMAL) POCT glucose meter (05/14/2025 5:10 PM EST) [facility] POCT Glucose 320(H) 74 - 99 mg/dL 05/14/2025 5:13 PM EST [facility] Comment:Accuracy of a glucos e result [...] Comment 05/14/2025 5:13 PM EST [facility] Dye Automation Operator ID Dunia Montgomery 05/14/2025 5:13 PM EST [facility] Device ID [id number] 05/14/2025 5:13 PM EST [facility] Specimen Type POC Capillary 05/14/2025 5:13 PM EST [facility] Blood Capillary blood specimen / Unknown 05/14/2025 5:10 PM EST 05/14/2025 5:13 PM EST us Selin Lee MD LAB POINT OF CARE TE ST DOCKED DEVICE UNSOLICITED RESULTS Final Result [facility] [address] [place] [address] * (ABNORMAL) POCT glucose meter (05/14/2025 12:15 PM EST) [facility] POCT Glucose 260(H) 74 - 99 [...] 05/14/2025 4:51 PM EST [facility] Dye Automation Operator ID Dunia Montgomery 05/14/2025 4:51 PM EST [facility] Device ID [id number] 05/14/2025 4:51 PM EST [facility] Specimen Type POC Capillary 05/14/2025 4:51 PM EST [facility] Blood Capillary blood specimen / Unknown 05/14/2025 12:15 PM EST 05/14/2025 4:51 PM EST Selin Lee MD LAB POINT OF CARE TE ST DOCKED DEVICE UNSOLICITED RESULTS Final Result [facility] [address] [place] [address] * (ABNORMAL) POCT glucose meter (05/14/2025 8:30 AM EST) [facility] POCT Glucose 321(H) 74 - 99 [...] 05/14/2025 8:33 AM EST [facility] Dye Automation Operator ID Dunia Montgomery 05/14/2025 8:33 AM EST [facility] Device ID [id number] 05/14/2025 8:33 AM EST [facility] Specimen Type POC Capillary 05/14/2025 8:33 AM EST [facility] Blood Capillary blood specimen / Unknown 05/14/2025 8:30 AM EST 05/14/2025 8:33 AM EST Selin Lee MD LAB POINT OF CARE TE ST DOCKED DEVICE UNSOLICITED RESULTS Final Result [facility] [address] [place] [id number] * (ABNORMAL) CBC and Differential (05/14/2025 1:45 AM EDT) WBC Count 7.88 3.70 - 10.30 10*3/uL LAB HEMATOLOGY METHOD 05/14/2025 2:47 AM EST [facility] RBC Count 4.25(L) 4.60 - 6.10 10*6/uL LAB HEMATOLOGY METHOD 05/14/2025 2:47 AM EST [facility] HGB 9.7(L) 13.7 - 17.5 g/dL LAB HEMATOLOGY METHOD 05/14/2025 2:47 AM EST [facility] HCT 31.7(L) 40.0 - 51.0 % LAB HEMATOLOGY METHOD 05/14/2025 2:47 AM EST [facility] Platelet Count 273 155 - 369 10*3/uL LAB HEMATOLOGY METHOD 05/14/2025 2:47 AM EST [facility] MCV 75(L) 79 - 98 fL LAB HEMATOLOGY METHOD 05/14/2025 2:47 AM EST [facility] MCH 22.8(L) 26.0 - 32.0 pg LAB HEMATOLOGY METHOD 05/14/2025 2:47 AM EST [facility] MCHC 30.6(L) 30.7 - 35.5 g/dL LAB HEMATOLOGY METHOD 05/14/2025 2:47 AM EST [facility] RDW 17.9(H) 11.5 - 14.5 % LAB HEMATOLOGY METHOD 05/14/2025 2:47 AM EST [facility] MPV 9.6 8.8 - 12.5 fL LAB HEMATOLOGY METHOD 05/14/2025 2:47 AM EST [facility] nRBC 0.0 <=0.0 per 100 WBCs LAB HEMATOLOGY METHOD 05/14/2025 2:47 AM EST [facility] Differential Type Automated LAB HEMATOLOGY METHOD 05/14/2025 2:47 AM [facility] Neutrophils % 66 % LAB HEMATOLOGY METHOD 05/14/2025 2:47 AM EST [facility] Lymphocytes % 18 % LAB HEMATOLOGY METHOD 05/14/2025 2:47 AM EST [facility] Monocytes % 11 % LAB HEMATOLOGY METHOD 05/14/2025 2:47 AM EST [facility] Eosinophils % 4 % LAB HEMATOLOGY METHOD 05/14/2025 2:47 AM EST [facility] Basophils % 1 % LAB HEMATOLOGY METHOD 05/14/2025 2:47 AM [facility] Immature Granulocytes % 0 % LAB HEMATOLOGY METHOD 05/14/2025 2:47 AM EST [facility] Neutrophils Absolute 5.20 1.60 - 6.10 10*3/uL LAB HEMATOLOGY METHOD 05/14/2025 2:47 AM EST [facility] Lymphocytes Absolute 1.44 1.20 - 3.90 10*3/uL LAB HEMATOLOGY METHOD 05/14/2025 2:47 AM [facility] Monocytes Absolute 0.85 0.30 - 0.90 10*3/uL LAB HEMATOLOGY METHOD 05/14/2025 2:47 AM [facility] Eosinophils Absolute 0.30 0.00 - 0.50 10*3/uL LAB HEMATOLOGY METHOD 05/14/2025 2:47 AM [facility] Basophils Absolute 0.06 0.00 - 0.10 10*3/uL LAB HEMATOLOGY METHOD 05/14/2025 2:47 AM [facility] Immature Granulocytes Absolute 0.03 0.00 - 0.06 10*3/uL LAB HEMATOLOGY METHOD 05/14/2025 2:47 AM [facility] Blood Venous blood specimen / Unknown Venipuncture / Unknown 05/14/2025 1:45 AM EDT 05/14/2025 2:24 AM EST [facility] - 05/14/2025 2:47 AM EST Therapeutic decision making should be based on absolute values, rather than percentages. us Teeem K Ramay MD LAB BLOOD ORDERABLES Final Re sult [facility] [address] [place] [address] * (ABNORMAL) Magnesium, Plasma (05/14/2025 1:45 AM EDT) Magnesium, Plasma 1.7(L) 1.9 - 2.4 mg/dL 05/14/2025 2:58 AM EST [facility] Blood Venous blood specimen / Unknown Venipuncture / Unknown 05/14/2025 1:45 AM EDT 05/14/2025 2:25 AM EST Selin Lee MD LAB BLOOD ORDERABLES Final Re sult Performing Organization Address [facility]/ZIP Co de Phone Number [facility] [address] [place] [address] * (ABNORMAL) Basic Metabolic Panel, Plasma (05/14/2025 1:45 AM EDT) Glucose, Plasma 282(H) 74 - 99 mg/dL 05/14/2025 2:58 AM EST [facility] BUN, Plasma 16 7 - 21 mg/dL 05/14/2025 2:58 AM EST [facility] Creatinine, Plasma 0.85 0.70 - 1.20 mg/dL 05/14/2025 2:58 AM EST [facility] BUN/Creatinine Ratio 19 05/14/2025 2:58 AM EST [facility] Sodium, Plasma 132(L) 136 - 145 mmol/L 05/14/2025 2:58 AM EST [facility] Potassium, Plasma 3.5(L) 3.6 - 4.9 mmol/L 05/14/2025 2:58 AM EST [facility] Chloride, Plasma 87(L) 97 - 107 mmol/L 05/14/2025 2:58 AM EST [facility] CO2, Plasma 34(H) 22 - 29 mmol/L 05/14/2025 2:58 AM EST [facility] Anion Gap 11 6 - 16 mmol/L 05/14/2025 2:58 AM EST [facility] Total Calcium, Plasma 9.2 8.9 - 10.2 mg/dL 05/14/2025 2:58 AM EST [facility] eGFRcr 107.9 mL/min/1.7 3m*2 05/14/2025 2:58 AM EST [facility] Comment:Reported eGFRcr in m L/min/1.73m2 is based the CKD-EPI 2020 equation that does not use a race coefficient. Blood Venous blood specimen / Unknown Venipuncture / Unknown 05/14/2025 1:45 AM EDT 05/14/2025 2:25 AM EST us Selin Lee MD LAB BLOOD ORDERABLES Final Re sult Performing Organization Address City/[facility] Co de Phone Number [facility] [address] [place] [address] * Phosphorus, Plasma (05/14/2025 1:45 AM EDT) Phosphorus, Plasma 3.3 2.5 - 4.5 mg/dL 05/14/2025 2:58 AM EST [facility] Blood Venous blood specimen / Unknown Venipuncture / Unknown 05/14/2025 1:45 AM EDT 05/14/2025 2:25 AM EST us Selin Lee MD LAB BLOOD ORDERABLES Final Re sult Performing Organization Address City/[facility] Co de Phone Number [facility] [address] [place] [address] * (ABNORMAL) POCT glucose meter (05/13/2025 4:58 PM EDT) POCT Glucose 217(H) 74 - 99 mg/dL 05/13/2025 5:00 PM EDT [facility] Comment:Accuracy of a glucos e result [...] Comment 05/13/2025 5:00 PM EDT [facility] Dye Automation Operator ID Priyanka Negrete 05/13/20 5:00 PM EDT [facility] Device ID [id number] 05/13/2025 5:00 PM EDT [facility] Specimen Type POC Capillary 05/13/2025 5:00 PM EDT [facility] Blood Capillary blood specimen / Unknown 05/13/2025 4:58 PM EDT 05/13/2025 5:00 PM EDT Selin Lee MD LAB POINT OF CARE TE ST DOCKED DEVICE UNSOLICITED RESULTS Final Result Performing Organization Address City/[facility] Co de Phone Number [facility] [address] [place] [address] * (ABNORMAL) POCT glucose meter (05/13/2025 11:37 AM EDT) POCT Glucose 255(H) 74 - 99 mg/dL [...] Comment 05/13/2025 11:41 AM EDT [facility] Dye Automation Operator ID Priyanka Negrete 05/13/20 11:41 AM EDT [facility] Device ID [id number] 05/13/2025 11:41 AM EDT [facility] Specimen Type POC Capillary 05/13/2025 11:41 AM EDT [facility] Blood Capillary blood specimen / Unknown 05/13/2025 11:37 AM EDT 05/13/2025 11:41 AM EDT us Selin Lee MD LAB POINT OF CARE TE ST DOCKED DEVICE UNSOLICITED RESULTS Final Result Performing Organization Address City/[facility]/ZIP Co de Phone Number [facility] [address] [place] [address] * (ABNORMAL) POCT glucose meter (05/13/2025 7:42 [...] Comment 05/13/2025 7:45 AM EDT [facility] Dye Automation Operator ID Priyanka Negrete 05/13/20 7:45 AM EDT [facility] Device ID [id number] 05/13/2025 7:45 AM EDT [facility] Specimen Type POC Capillary 05/13/2025 7:45 AM EDT [facility] Blood Capillary blood specimen / Unknown 05/13/2025 7:42 AM EDT 05/13/2025 7:45 AM EDT us Selin Lee MD LAB POINT OF CARE TE ST DOCKED DEVICE UNSOLICITED RESULTS Final Result Performing Organization Address City/State/[facility] Co de Phone Number [facility] [address] [place], [place] [id number] * (ABNORMAL) CBC and Differential (05/13/2025 3:54 AM EDT) WBC Count 7.92 3.70 - 10.30 10*3/uL LAB HEMATOLOGY METHOD 05/13/2025 4:11 AM EDT [facility] RBC Count 4.40(L) 4.60 - 6.10 10*6/uL LAB HEMATOLOGY METHOD 05/13/2025 4:11 AM EDT [facility] HGB 9.9(L) 13.7 - 17.5 g/dL LAB HEMATOLOGY METHOD 05/13/2025 4:11 AM EDT [facility] HCT 33.0(L) 40.0 - 51.0 % LAB HEMATOLOGY METHOD 05/13/2025 4:11 AM EDT [facility] Platelet Count 276 155 - 369 10*3/uL LAB HEMATOLOGY METHOD 05/13/2025 4:11 AM EDT [facility] MCV 75(L) 79 - 98 fL LAB HEMATOLOGY METHOD 05/13/2025 4:11 AM EDT [facility] MCH 22.5(L) 26.0 - 32.0 pg LAB HEMATOLOGY METHOD 05/13/2025 4:11 AM EDT [facility] MCHC 30.0(L) 30.7 - 35.5 g/dL LAB HEMATOLOGY METHOD 05/13/2025 4:11 AM EDT [facility] RDW 17.8(H) 11.5 - 14.5 % LAB HEMATOLOGY METHOD 05/13/2025 4:11 AM EDT [facility] MPV 9.3 8.8 - 12.5 fL LAB HEMATOLOGY METHOD 05/13/2025 4:11 AM EDT [facility] nRBC 0.0 <=0.0 per 100 WBCs LAB HEMATOLOGY METHOD 05/13/2025 4:11 AM EDT [facility] Differential Type Automated LAB HEMATOLOGY METHOD 05/13/2025 4:11 AM EDT [facility] Neutrophils % 69 % LAB HEMATOLOGY METHOD 05/13/2025 4:11 AM EDT [facility] Lymphocytes % 17 % LAB HEMATOLOGY METHOD 05/13/2025 4:11 AM EDT [facility] Monocytes % 10 % LAB HEMATOLOGY METHOD 05/13/2025 4:11 AM EDT [facility] Eosinophils % 3 % LAB HEMATOLOGY METHOD 05/13/2025 4:11 AM EDT [facility] Basophils % 1 % LAB HEMATOLOGY METHOD 05/13/2025 4:11 AM EDT [facility] Immature Granulocytes % 0 % LAB HEMATOLOGY METHOD 05/13/2025 4:11 AM EDT [facility] Neutrophils Absolute 5.47 1.60 - 6.10 10*3/uL LAB HEMATOLOGY METHOD 05/13/2025 4:11 AM EDT [facility] Lymphocytes Absolute 1.33 1.20 - 3.90 10*3/uL LAB HEMATOLOGY METHOD 05/13/2025 4:11 AM EDT [facility] Monocytes Absolute 0.78 0.30 - 0.90 10*3/uL LAB HEMATOLOGY METHOD 05/13/2025 4:11 AM EDT [facility] Eosinophils Absolute 0.27 0.00 - 0.50 10*3/uL LAB HEMATOLOGY METHOD 05/13/2025 4:11 AM EDT [facility] Basophils Absolute 0.04 0.00 - 0.10 10*3/uL LAB HEMATOLOGY METHOD 05/13/2025 4:11 AM EDT [facility] Immature Granulocytes Absolute 0.03 0.00 - 0.06 10*3/uL LAB HEMATOLOGY METHOD 05/13/2025 4:11 AM EDT [facility] Blood Venous blood specimen / Unknown Venipuncture / Unknown 05/13/2025 3:54 AM EDT 05/13/2025 4:01 AM EDT Narrative [facility] - 05/13/2025 4:11 AM EDT Therapeutic decision making should be based on absolute values, rather than percentages. us Selin Lee MD LAB BLOOD ORDERABLES Final Re sult Performing Organization Address [facility] Co de Phone Number [facility] [address] [place] [address] * Magnesium, Plasma (05/13/2025 3:54 AM EDT) Magnesium, Plasma 1.9 1.9 - 2.4 mg/dL 05/13/2025 4:28 AM EDT [facility] Blood Venous blood specimen / Unknown Venipuncture / Unknown 05/13/2025 3:54 AM EDT 05/13/2025 4:01 AM EDT us Selin Lee MD LAB BLOOD ORDERABLES Final Re sult [facility] [address] [place] [address] * (ABNORMAL) Basic Metabolic Panel, Plasma (05/13/2025 3:54 AM EDT) Glucose, Plasma 238(H) 74 - 99 mg/dL 05/13/2025 4:28 AM EDT [facility] BUN, Plasma 16 7 - 21 mg/dL 05/13/2025 4:28 AM EDT [facility] Creatinine, Plasma 0.96 0.70 - 1.20 mg/dL 05/13/2025 4:28 AM EDT [facility] BUN/Creatinine Ratio 17 05/13/2025 4:28 AM EDT [facility] Sodium, Plasma 131(L) 136 - 145 mmol/L 05/13/2025 4:28 AM EDT [facility] Potassium, Plasma 3.3(L) 3.6 - 4.9 mmol/L 05/13/2025 4:28 AM EDT [facility] Chloride, Plasma 87(L) 97 - 107 mmol/L 05/13/2025 4:28 AM EDT [facility] CO2, Plasma 37(H) 22 - 29 mmol/L 05/13/2025 4:28 AM EDT [facility] Anion Gap 7 6 - 16 mmol/L 05/13/2025 4:28 AM EDT [facility] Total Calcium, Plasma 9.1 8.9 - 10.2 mg/dL 05/13/2025 4:28 AM EDT [facility] eGFRcr 98.1 mL/min/1.7 3m*2 05/13/2025 4:28 AM EDT [facility] Comment:Reported eGFRcr in m L/min/1.73m2 is based the CKD-EPI 2020 equation that does not use a race coefficient. Blood Venous blood specimen / Unknown Venipuncture / Unknown 05/13/2025 3:54 AM EDT 05/13/2025 4:01 AM EDT us Selin Lee MD LAB BLOOD ORDERABLES Final Re sult [facility] [address] [place] [address] * Phosphorus, Plasma (05/13/2025 3:54 AM EDT) Phosphorus, Plasma 3.3 2.5 - 4.5 mg/dL 05/13/2025 4:28 AM EDT [facility] Blood Venous blood specimen / Unknown Venipuncture / Unknown 05/13/2025 3:54 AM EDT 05/13/2025 4:01 AM EDT us Selin Lee MD LAB BLOOD ORDERABLES Final Re sult Performing Organization Address City/[facility] Co de Phone Number [facility] [address] [place] [address] * (ABNORMAL) POCT glucose meter (05/12/2025 7:40 [...] Comment 05/12/2025 7:42 PM EDT [facility] Dye Automation Operator ID Stella Coleman 05/12/20 7:42 PM EDT [facility] Device ID [id number] 05/12/2025 7:42 PM EDT [facility] Specimen Type POC Capillary 05/12/2025 7:42 PM EDT [facility] Blood Capillary blood specimen / Unknown 05/12/2025 7:40 PM EDT 05/12/2025 7:42 PM EDT us Selin Lee MD LAB POINT OF CARE TE ST DOCKED DEVICE UNSOLICITED RESULTS Final Result Performing Organization Address [facility] Co de Phone Number [facility] [address] [place] [address] * (ABNORMAL) POCT glucose meter (05/12/2025 4:36 [...] 05/12/2025 4:38 PM EDT [facility] Dye Automation Operator ID Char Hinojosa 05/12/2025 4:38 PM EDT [facility] Device ID [id number] 05/12/2025 4:38 PM EDT [facility] Specimen Type POC Capillary 05/12/2025 4:38 PM EDT [facility] Blood Capillary blood specimen / Unknown 05/12/2025 4:36 PM EDT 05/12/2025 4:38 PM EDT us Selin Lee MD LAB POINT OF CARE TE ST DOCKED DEVICE UNSOLICITED RESULTS Final Result Performing Organization Address City/[facility] Co de Phone Number [facility] [address] [place] [address] * (ABNORMAL) POCT glucose meter (05/12/2025 11:30 [...] 05/12/2025 11:32 AM EDT [facility] Dye Automation Operator ID Char Hinojosa 05/12/2025 11:32 AM EDT [facility] Device ID [id number] 05/12/2025 11:32 AM EDT [facility] Specimen Type POC Capillary 05/12/2025 11:32 AM EDT [facility] Blood Capillary blood specimen / Unknown 05/12/2025 11:30 AM EDT 05/12/2025 11:32 AM EDT us Selin Lee MD LAB POINT OF CARE TE ST DOCKED DEVICE UNSOLICITED RESULTS Final Result Performing Organization Address City/[facility]/ZIP Co de Phone Number [facility] [address] [place] [address] * (ABNORMAL) POCT glucose meter (05/12/2025 8:08 AM EDT) Pathologist [facility] POCT Glucose 274(H) 74 - 99 mg/dL [...] Comment 05/12/2025 8:10 AM EDT [facility] Dye Automation Operator ID Char Hinojosa 05/12/2025 8:10 AM EDT [facility] Device ID [id number] 05/12/2025 8:10 AM EDT [facility] Specimen Type POC Capillary 05/12/2025 8:10 AM EDT [facility] Blood Capillary blood specimen / Unknown 05/12/2025 8:08 AM EDT 05/12/2025 8:10 AM EDT us Selin Lee MD LAB POINT OF CARE TE ST DOCKED DEVICE UNSOLICITED RESULTS Final Result [facility] [address] [place] [address] * (ABNORMAL) CBC and Differential (05/12/2025 3:56 AM EDT) [facility] WBC Count 7.24 3.70 - 10.30 10*3/uL LAB HEMATOLOGY METHOD 05/12/2025 4:15 AM EDT [facility] RBC Count 4.28(L) 4.60 - 6.10 10*6/uL LAB HEMATOLOGY METHOD 05/12/2025 4:15 AM EDT [facility] HGB 9.4(L) 13.7 - 17.5 g/dL LAB HEMATOLOGY METHOD 05/12/2025 4:15 AM EDT [facility] HCT 31.8(L) 40.0 - 51.0 % LAB HEMATOLOGY METHOD 05/12/2025 4:15 AM EDT [facility] Platelet Count 266 155 - 369 10*3/uL LAB HEMATOLOGY METHOD 05/12/2025 4:15 AM EDT [facility] MCV 74(L) 79 - 98 fL LAB HEMATOLOGY METHOD 05/12/2025 4:15 AM EDT [facility] MCH 22.0(L) 26.0 - 32.0 pg LAB HEMATOLOGY METHOD 05/12/2025 4:15 AM EDT [facility] MCHC 29.6(L) 30.7 - 35.5 g/dL LAB HEMATOLOGY METHOD 05/12/2025 4:15 AM EDT [facility] RDW 18.0(H) 11.5 - 14.5 % LAB HEMATOLOGY METHOD 05/12/2025 4:15 AM EDT [facility] MPV 9.6 8.8 - 12.5 fL LAB HEMATOLOGY METHOD 05/12/2025 4:15 AM EDT [facility] nRBC 0.0 <=0.0 per 100 WBCs LAB HEMATOLOGY METHOD 05/12/2025 4:15 AM EDT [facility] Differential Type Automated LAB HEMATOLOGY METHOD 05/12/2025 4:15 AM EDT [facility] Neutrophils % 71 % LAB HEMATOLOGY METHOD 05/12/2025 4:15 AM EDT [facility] Lymphocytes % 16 % LAB HEMATOLOGY METHOD 05/12/2025 4:15 AM EDT [facility] Monocytes % 9 % LAB HEMATOLOGY METHOD 05/12/2025 4:15 AM EDT [facility] Eosinophils % 3 % LAB HEMATOLOGY METHOD 05/12/2025 4:15 AM EDT [facility] Basophils % 1 % LAB HEMATOLOGY METHOD 05/12/2025 4:15 AM EDT [facility] Immature Granulocytes % 0 % LAB HEMATOLOGY METHOD 05/12/2025 4:15 AM EDT [facility] Neutrophils Absolute 5.14 1.60 - 6.10 10*3/uL LAB HEMATOLOGY METHOD 05/12/2025 4:15 AM EDT [facility] Lymphocytes Absolute 1.15(L) 1.20 - 3.90 10*3/uL LAB HEMATOLOGY METHOD 05/12/2025 4:15 AM EDT [facility] Monocytes Absolute 0.66 0.30 - 0.90 10*3/uL LAB HEMATOLOGY METHOD 05/12/2025 4:15 AM EDT [facility] Eosinophils Absolute 0.22 0.00 - 0.50 10*3/uL LAB HEMATOLOGY METHOD 05/12/2025 4:15 AM EDT [facility] Basophils Absolute 0.05 0.00 - 0.10 10*3/uL LAB HEMATOLOGY METHOD 05/12/2025 4:15 AM EDT [facility] Immature Granulocytes Absolute 0.02 0.00 - 0.06 10*3/uL LAB HEMATOLOGY METHOD 05/12/2025 4:15 AM EDT [facility] Blood Venous blood specimen / Unknown Venipuncture / Unknown 05/12/2025 3:56 AM EDT 05/12/2025 4:03 AM EDT Narrative [facility] - 05/12/2025 4:15 AM EDT Therapeutic decision making should be based on absolute values, rather than percentages. Selin Lee MD LAB BLOOD ORDERABLES Final Re sult Performing Organization Address City/[facility]/ZIP Co de Phone Number [facility] [address] [place] [address] * (ABNORMAL) Magnesium, Plasma (05/12/2025 3:56 AM EDT) Magnesium, Plasma 1.7(L) 1.9 - 2.4 mg/dL 05/12/2025 4:36 AM EDT [facility] Blood Venous blood specimen / Unknown Venipuncture / Unknown 05/12/2025 3:56 AM EDT 05/12/2025 4:03 AM EDT Selin Lee MD LAB BLOOD ORDERABLES Final Re sult Performing Organization Address City/[facility]/ZIP Co de Phone Number [facility] [address] [place] [address] * (ABNORMAL) Basic Metabolic Panel, Plasma (05/12/2025 3:56 AM EDT) Glucose, Plasma 383(H) 74 - 99 mg/dL 05/12/2025 4:36 AM EDT [facility] BUN, Plasma 18 7 - 21 mg/dL 05/12/2025 4:36 AM EDT [facility] Creatinine, Plasma 0.86 0.70 - 1.20 mg/dL 05/12/2025 4:36 AM EDT [facility] BUN/Creatinine Ratio 21 05/12/2025 4:36 AM EDT [facility] Sodium, Plasma 130(L) 136 - 145 mmol/L 05/12/2025 4:36 AM EDT [facility] Potassium, Plasma 3.2(L) 3.6 - 4.9 mmol/L 05/12/2025 4:36 AM EDT [facility] Chloride, Plasma 85(L) 97 - 107 mmol/L 05/12/2025 4:36 AM EDT [facility] CO2, Plasma 36(H) 22 - 29 mmol/L 05/12/2025 4:36 AM EDT [facility] Anion Gap 9 6 - 16 mmol/L 05/12/2025 4:36 AM EDT [facility] Total Calcium, Plasma 8.9 8.9 - 10.2 mg/dL 05/12/2025 4:36 AM EDT [facility] eGFRcr 107.5 mL/min/1.7 3m*2 05/12/2025 4:36 AM EDT [facility] Comment:Reported eGFRcr in m L/min/1.73m2 is based the CKD-EPI 2020 equation that does not use a race coefficient. Blood Venous blood specimen / Unknown Venipuncture / Unknown 05/12/2025 3:56 AM EDT 05/12/2025 4:03 AM EDT us Selin Lee MD LAB BLOOD ORDERABLES Final Re sult [facility] [address] [place] [address] * Phosphorus, Plasma (05/12/2025 3:56 AM EDT) Phosphorus, Plasma 2.8 2.5 - 4.5 mg/dL 05/12/2025 4:36 AM EDT [facility] Blood Venous blood specimen / Unknown Venipuncture / Unknown 05/12/2025 3:56 AM EDT 05/12/2025 4:03 AM EDT us Selin Lee MD LAB BLOOD ORDERABLES Final Re sult Performing Organization Address [facility] Co de Phone Number [facility] [address] [place] [address] * (ABNORMAL) POCT glucose meter (05/12/2025 3:11 AM EDT) POCT Glucose 348(H) 74 - 99 mg/dL 05/12/2025 3:13 AM EDT [facility] Comment:Accuracy of a [...] Comment 05/12/2025 3:13 AM EDT [facility] Dye Automation Operator ID Mathew Edshuterdoe 05/12/2025 3:13 AM EDT [facility] LAB Device ID [id number] 05/12/2025 3:13 AM EDT [facility] Specimen Type POC Capillary 05/12/2025 3:13 AM EDT [facility] Blood Capillary blood specimen / Unknown 05/12/2025 3:11 AM EDT 05/12/2025 3:13 AM EDT us Selin Lee MD LAB POINT OF CARE TE ST DOCKED DEVICE UNSOLICITED RESULTS Final Result Performing Organization Address City/[facility]/ZIP Co de Phone Number [facility] [address] [place] [address] * (ABNORMAL) POCT glucose meter (05/11/2025 7:57 [...] Comment 05/11/2025 8:02 PM EDT [facility] Dye Automation Operator ID Joel Carmona 05/11/2025 8:02 PM EDT [facility] Device ID [id number] 05/11/2025 8:02 PM EDT [facility] Specimen Type POC Capillary 05/11/2025 8:02 PM EDT [facility] Blood Capillary blood specimen / Unknown 05/11/2025 7:57 PM EDT 05/11/2025 8:02 PM EDT us Selin Lee MD LAB POINT OF CARE TE ST DOCKED DEVICE UNSOLICITED RESULTS Final Result Performing Organization Address City/State/[facility] Co de Phone Number [facility] [address] [place] [address] * (ABNORMAL) POCT glucose meter (05/11/2025 5:05 PM EDT) POCT Glucose 258(H) 74 - 99 mg/dL 05/11/2025 5:07 PM EDT [facility] Comment:Accuracy of a [...] Comment 05/11/2025 5:07 PM EDT [facility] Dye Automation Operator ID Char Hinojosa 05/11/2025 5:07 PM EDT [facility] Device ID [id number] 05/11/2025 5:07 PM EDT [facility] Specimen Type POC Capillary 05/11/2025 5:07 PM EDT [facility] Blood Capillary blood specimen / Unknown 05/11/2025 5:05 PM EDT 05/11/2025 5:07 PM EDT us Selin Lee MD LAB POINT OF CARE TE ST DOCKED DEVICE UNSOLICITED RESULTS Final Result Performing Organization Address City/[facility]/ZIP Co de Phone Number [facility] [address] [place] [address] * (ABNORMAL) POCT glucose meter (05/11/2025 12:13 PM EDT) Pathologist [facility] POCT Glucose 240(H) 74 - 99 mg/dL [...] Comment 05/11/2025 12:15 PM EDT [facility] Dye Automation Operator ID Char Hinojosa 05/11/2025 12:15 PM EDT [facility] Device ID [id number] 05/11/2025 12:15 PM EDT [facility] Specimen Type POC Capillary 05/11/2025 12:15 PM EDT [facility] Blood Capillary blood specimen / Unknown 05/11/2025 12:13 PM EDT 05/11/2025 12:15 PM EDT us Selin Lee MD LAB POINT OF CARE TE ST DOCKED DEVICE UNSOLICITED RESULTS Final Result Performing Organization Address City/[facility] Co de Phone Number [facility] [address] [place] [address] * (ABNORMAL) POCT glucose meter (05/11/2025 7:57 AM EDT) Pathologist [facility] POCT Glucose 318(H) 74 - 99 mg/dL [...] 05/11/2025 7:59 AM EDT [facility] Dye Automation Operator ID Char Hinojosa 05/11/2025 7:59 AM EDT [facility] LAB Device ID [id number] 05/11/2025 7:59 AM EDT [facility] Specimen Type POC Capillary 05/11/2025 7:59 AM EDT [facility] Blood Capillary blood specimen / Unknown 05/11/2025 7:57 AM EDT 05/11/2025 7:59 AM EDT Selin Lee MD LAB POINT OF CARE TE ST DOCKED DEVICE UNSOLICITED RESULTS Final Result [facility] [address] [place] [id number] * ECG Adult (05/11/2025 6:11 AM EDT) EKG DIAGNOSIS CLASS Abnormal MUSE ECG Ventricular Rate 59 BPM MUSE ECG Atrial Rate 59 BPM MUSE ECG PA Interval 176 ms MUSE ECG QRSD Interval 160 ms MUSE ECG QT Interval 520 ms MUSE ECG QTC Interval 514 ms MUSE ECG P [place] 21 degrees MUSE ECG R [place] -32 degrees MUSE ECG T Wave [place] -9 degrees MUSE ECG Diagnosis Sinus bradycardia [...] MUSE ECG Diagnosis Confirmed by Tone Lainez ([id number]) on 05/12/2025 11:35:23 AM MUSE ECG 05/11/2025 [...] Comment 05/11/2025 3:45 AM EDT [facility] Dye Automation Operator ID Kaylin Barron 05/11/2025 3:45 AM EDT [facility] Device ID [id number] 05/11/2025 3:45 AM EDT [facility] Specimen Type POC Capillary 05/11/2025 3:45 AM EDT [facility] Blood Capillary blood specimen / Unknown 05/11/2025 3:42 AM EDT 05/11/2025 3:45 AM EDT Selin Lee MD LAB POINT OF CARE TE ST DOCKED DEVICE UNSOLICITED RESULTS Final Result Performing Organization Address City/State/[facility] Co de Phone Number [facility]ARE [facility] [address] [place] [address] * (ABNORMAL) CBC and Differential (05/11/2025 3:24 AM EDT) WBC Count 6.72 3.70 - 10.30 10*3/uL LAB HEMATOLOGY METHOD 05/11/2025 3:42 AM EDT [facility] RBC Count 4.13(L) 4.60 - 6.10 10*6/uL LAB HEMATOLOGY METHOD 05/11/2025 3:42 AM EDT [facility] HGB 9.5(L) 13.7 - 17.5 g/dL LAB HEMATOLOGY METHOD 05/11/2025 3:42 AM EDT [facility] HCT 31.1(L) 40.0 - 51.0 % LAB HEMATOLOGY METHOD 05/11/2025 3:42 AM EDT [facility] Platelet Count 253 155 - 369 10*3/uL LAB HEMATOLOGY METHOD 05/11/2025 3:42 AM EDT [facility] MCV 75(L) 79 - 98 fL LAB HEMATOLOGY METHOD 05/11/2025 3:42 AM EDT [facility] MCH 23.0(L) 26.0 - 32.0 pg LAB HEMATOLOGY METHOD 05/11/2025 3:42 AM EDT [facility] MCHC 30.5(L) 30.7 - 35.5 g/dL LAB HEMATOLOGY METHOD 05/11/2025 3:42 AM EDT [facility] RDW 17.8(H) 11.5 - 14.5 % LAB HEMATOLOGY METHOD 05/11/2025 3:42 AM EDT [facility] MPV 9.5 8.8 - 12.5 fL LAB HEMATOLOGY METHOD 05/11/2025 3:42 AM EDT [facility] nRBC 0.0 <=0.0 per 100 WBCs LAB HEMATOLOGY METHOD 05/11/2025 3:42 AM EDT [facility] Differential Type Automated LAB HEMATOLOGY METHOD 05/11/2025 3:42 AM EDT [facility] Neutrophils % 68 % LAB HEMATOLOGY METHOD 05/11/2025 3:42 AM EDT [facility] Lymphocytes % 17 % LAB HEMATOLOGY METHOD 05/11/2025 3:42 AM EDT [facility] Monocytes % 11 % LAB HEMATOLOGY METHOD 05/11/2025 3:42 AM EDT [facility] Eosinophils % 3 % LAB HEMATOLOGY METHOD 05/11/2025 3:42 AM EDT [facility] Basophils % 1 % LAB HEMATOLOGY METHOD 05/11/2025 3:42 AM EDT [facility] Immature Granulocytes % 0 % LAB HEMATOLOGY METHOD 05/11/2025 3:42 AM EDT [facility] Neutrophils Absolute 4.61 1.60 - 6.10 10*3/uL LAB HEMATOLOGY METHOD 05/11/2025 3:42 AM EDT [facility] Lymphocytes Absolute 1.11(L) 1.20 - 3.90 10*3/uL LAB HEMATOLOGY METHOD 05/11/2025 3:42 AM EDT [facility] Monocytes Absolute 0.72 0.30 - 0.90 10*3/uL LAB HEMATOLOGY METHOD 05/11/2025 3:42 AM EDT [facility] Eosinophils Absolute 0.21 0.00 - 0.50 10*3/uL LAB HEMATOLOGY METHOD 05/11/2025 3:42 AM EDT [facility] Basophils Absolute 0.05 0.00 - 0.10 10*3/uL LAB HEMATOLOGY METHOD 05/11/2025 3:42 AM EDT [facility] Immature Granulocytes Absolute 0.02 0.00 - 0.06 10*3/uL LAB HEMATOLOGY METHOD 05/11/2025 3:42 AM EDT [facility] Blood Venous blood specimen / Unknown Venipuncture / Unknown 05/11/2025 3:24 AM EDT 05/11/2025 3:30 AM EDT Narrative [facility] - 05/11/2025 3:42 AM EDT Therapeutic decision making should be based on absolute values, rather than percentages. us Selin Lee MD LAB BLOOD ORDERABLES Final Re sult Performing Organization Address [facility]/ZIP Co de Phone Number [facility] [address] [place] [address] * (ABNORMAL) Magnesium, Plasma (05/11/2025 3:24 AM EDT) Magnesium, Plasma 1.8(L) 1.9 - 2.4 mg/dL 05/11/2025 3:58 AM EDT [facility] Blood Venous blood specimen / Unknown Venipuncture / Unknown 05/11/2025 3:24 AM EDT 05/11/2025 3:30 AM EDT us Selin Lee MD LAB BLOOD ORDERABLES Final Re sult Performing Organization Address City/[facility]/ZIP Co de Phone Number [facility] [address] [place] [address] * (ABNORMAL) Basic Metabolic Panel, Plasma (05/11/2025 3:24 AM EDT) Glucose, Plasma 338(H) 74 - 99 mg/dL 05/11/2025 3:58 AM EDT [facility] BUN, Plasma 18 7 - 21 mg/dL 05/11/2025 3:58 AM EDT [facility] Creatinine, Plasma 0.86 0.70 - 1.20 mg/dL 05/11/2025 3:58 AM EDT [facility] BUN/Creatinine Ratio 21 05/11/2025 3:58 AM EDT [facility] Sodium, Plasma 131(L) 136 - 145 mmol/L 05/11/2025 3:58 AM EDT [facility] Potassium, Plasma 3.2(L) 3.6 - 4.9 mmol/L 05/11/2025 3:58 AM EDT [facility] Chloride, Plasma 85(L) 97 - 107 mmol/L 05/11/2025 3:58 AM EDT [facility] CO2, Plasma 39(H) 22 - 29 mmol/L 05/11/2025 3:58 AM EDT [facility] Anion Gap 7 6 - 16 mmol/L 05/11/2025 3:58 AM EDT [facility] Total Calcium, Plasma 9.1 8.9 - 10.2 mg/dL 05/11/2025 3:58 AM EDT [facility] eGFRcr 107.5 mL/min/1.7 3m*2 05/11/2025 3:58 AM EDT [facility] Comment:Reported eGFRcr in m L/min/1.73m2 is based the CKD-EPI 2020 equation that does not use a race coefficient. Blood Venous blood specimen / Unknown Venipuncture / Unknown 05/11/2025 3:24 AM EDT 05/11/2025 3:30 AM EDT us Selin Lee MD LAB BLOOD ORDERABLES Final Re sult [facility] [address] [place] [address] * Phosphorus, Plasma (05/11/2025 3:24 AM EDT) Phosphorus, Plasma 3.1 2.5 - 4.5 mg/dL 05/11/2025 3:58 AM EDT [facility] Blood Venous blood specimen / Unknown Venipuncture / Unknown 05/11/2025 3:24 AM EDT 05/11/2025 3:30 AM EDT us Selin Lee MD LAB BLOOD ORDERABLES Final Re sult Performing Organization Address City/[facility]/ZIP Co de Phone Number [facility] [address] [place] [address] * (ABNORMAL) POCT glucose meter (05/10/2025 7:07 PM EDT) [facility] POCT Glucose 398(H) 74 - 99 [...] Comment 05/10/2025 7:10 PM EDT [facility] Dye Automation Operator ID Char Hinojosa 05/10/2025 7:10 PM EDT HEALTHCARE LAB Device ID [id number] 05/10/2025 7:10 PM EDT [facility] Specimen Type POC Capillary 05/10/2025 7:10 PM EDT [facility] Blood Capillary blood specimen / Unknown 05/10/2025 7:07 PM EDT 05/10/2025 7:10 PM EDT Selin Lee MD LAB POINT OF CARE TE DOCKED DEVICE UNSOLICITED RESULTS Final Result Performing Organization Address [facility] Co de Phone Number [facility] [address] [place] [address] * (ABNORMAL) POCT glucose meter (05/10/2025 4:55 PM EDT) [facility] POCT Glucose 418(H) 74 - 99 [...] 05/10/2025 4:57 PM EDT [facility] Dye Automation Operator ID Char Hinojosa 05/10/2025 4:57 PM EDT [facility]ARE LAB Device ID [id number] 05/10/2025 4:57 PM EDT [facility] LAB Specimen Type POC Capillary 05/10/2025 4:57 PM EDT [facility] Blood Capillary blood specimen / Unknown 05/10/2025 4:55 PM EDT 05/10/2025 4:57 PM EDT Selin Lee MD LAB POINT OF CARE TE ST DOCKED DEVICE UNSOLICITED RESULTS Final Result Performing Organization Address City/[facility]/ZIP Co de Phone Number [facility] [address] [place] [address] * (ABNORMAL) POCT glucose meter (05/10/2025 11:41 AM EDT) [facility] POCT Glucose 348(H) 74 - 99 [...] 05/10/2025 11:43 AM EDT [facility] Dye Automation Operator ID Char Hinojosa 05/10/2025 11:43 AM EDT [facility] Device ID [id number] 05/10/2025 11:43 AM EDT [facility] LAB Specimen Type POC Capillary 05/10/2025 11:43 AM EDT [facility] Blood Capillary blood specimen / Unknown 05/10/2025 11:41 AM EDT 05/10/2025 11:43 AM EDT us Selin Lee MD LAB POINT OF CARE TE ST DOCKED DEVICE UNSOLICITED RESULTS Final Result Performing Organization Address City/[facility]/ZIP Co de Phone Number [facility] [address] [place] [address] * ECG 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/2025 11:20 AM EDT) [facility] EKG DIAGNOSIS CLASS Abnormal MUSE ECG Ventricular Rate 65 BPM MUSE ECG Atrial Rate 65 BPM MUSE ECG PA Interval 198 ms MUSE ECG QRSD Interval 154 ms MUSE ECG QT Interval 508 ms MUSE ECG QTC Interval 528 ms MUSE ECG P [place] 66 degrees MUSE ECG R [place] -39 degrees MUSE ECG T Wave [place] -16 degrees MUSE ECG Diagnosis Normal sinus rhythm with sinus arrhythmia MUSE ECG Diagnosis Left axis deviation MUSE ECG Diagnosis Right bundle branch block MUSE ECG Diagnosis Minimal voltage criteria for LVH, may be normal variant ( R in aVL ) MUSE ECG Diagnosis Abnormal ECG MUSE ECG Diagnosis MUSE ECG Diagnosis Confirmed by Manas Mccauley ([id number]) on 05/10/2025 3:20:48 PM MUSE ECG 05/10/2025 [...] 05/10/2025 7:33 AM EDT [facility] Dye Automation Operator ID Char Hinojosa 05/10/2025 7:33 AM EDT HEALTH[facility]ARE LAB Device ID [id number] 05/10/2025 7:33 AM EDT [facility] LAB Specimen Type POC Capillary 05/10/2025 7:33 AM EDT [facility] Blood Capillary blood specimen / Unknown 05/10/2025 7:30 AM EDT 05/10/2025 7:33 AM EDT us Selin Lee MD LAB POINT OF CARE TE ST DOCKED DEVICE UNSOLICITED RESULTS Final Result [facility] [address] [place] [address] * ECG 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/2025 6:14 AM EDT) EKG DIAGNOSIS CLASS Abnormal MUSE ECG Ventricular Rate 56 BPM MUSE ECG Atrial Rate 56 BPM MUSE ECG PA Interval 196 ms MUSE ECG QRSD Interval 164 ms MUSE ECG QT Interval 508 ms MUSE ECG QTC Interval 490 ms MUSE ECG P [place] 74 degrees MUSE ECG R [place] -33 degrees MUSE ECG T Wave [place] -10 degrees MUSE ECG Diagnosis Sinus bradycardia with sinus arrhythmia MUSE ECG Diagnosis Left axis deviation MUSE ECG Diagnosis Right bundle branch block MUSE ECG Diagnosis T wave abnormality, consider lateral ischemia MUSE ECG Diagnosis Abnormal ECG MUSE ECG Diagnosis MUSE ECG Diagnosis Confirmed by Manas Mccauley ([id number]) on 05/10/2025 2:45:37 PM MUSE ECG 05/10/2025 6:14 AM EDT 05/10/2025 2:45 PM EDT us Selin Lee MD ECG ORDERABLES Final Result Performing Organization Address [facility] Co de Phone Number MUSE ECG * (ABNORMAL) POCT glucose meter (05/10/2025 4:00 AM EDT) Pathologist [facility] POCT Glucose 377(H) 74 - 99 mg/dL [...] Comment 05/10/2025 4:02 AM EDT [facility] LAB Dye Automation Operator ID Maribell Saeed 4:02 AM EDT HEALTH[facility]ARE LAB Device ID [id number] 05/10/2025 4:02 AM EDT [facility] LAB Specimen Type POC Capillary 05/10/2025 4:02 AM EDT [facility] Blood Capillary blood specimen / Unknown 05/10/2025 4:00 AM EDT 05/10/2025 4:02 AM EDT Diane Guzman MD LAB POINT OF CARE T EST DOCKED DEVICE UNSOLICITED RESULTS Final Result Performing Organization Address City/[facility] Co de Phone Number [facility] [address] [place] [address] * (ABNORMAL) POCT glucose meter (05/09/2025 8:37 PM EDT) [facility] POCT Glucose 296(H) 74 - 99 [...] Comment 05/09/2025 8:39 PM EDT [facility] LAB Dye Automation Operator ID Maribell Saeed 8:39 PM EDT [facility] LAB Device ID [id number] 05/09/2025 8:39 PM EDT [facility] Specimen Type POC Capillary 05/09/2025 8:39 PM EDT [facility] Blood Capillary blood specimen / Unknown 05/09/2025 8:37 PM EDT 05/09/2025 8:39 PM EDT Diane Guzman MD LAB POINT OF CARE T EST DOCKED DEVICE UNSOLICITED RESULTS Final Result Performing Organization Address City/[facility]/ZIP Co de Phone Number [facility] [address] [place] [address] * Magnesium (05/09/2025 5:54 PM EDT) [facility] Magnesium, Plasma 1.9 1.9 - 2.4 mg/dL 05/09/2025 6:56 PM EDT [facility] Blood Venous blood specimen / Unknown Venipuncture / Unknown 05/09/2025 5:54 PM EDT 05/09/2025 6:25 PM EDT us Selin Lee MD LAB BLOOD ORDERABLES Final Re sult [facility] [address] [place] [address] * (ABNORMAL) Basic metabolic panel (05/09/2025 5:54 PM EDT) Glucose, Plasma 416(H) 74 - 99 mg/dL 05/09/2025 6:56 PM EDT [facility] BUN, Plasma 17 7 - 21 mg/dL 05/09/2025 6:56 PM EDT [facility] Creatinine, Plasma 0.81 0.70 - 1.20 mg/dL 05/09/2025 6:56 PM EDT [facility] BUN/Creatinine Ratio 21 05/09/2025 6:56 PM EDT [facility] Sodium, Plasma 130(L) 136 - 145 mmol/L 05/09/2025 6:56 PM EDT [facility] Potassium, Plasma 3.1(L) 3.6 - 4.9 mmol/L 05/09/2025 6:56 PM EDT [facility] Chloride, Plasma 84(L) 97 - 107 mmol/L 05/09/2025 6:56 PM EDT [facility] CO2, Plasma 35(H) 22 - 29 mmol/L 05/09/2025 6:56 PM EDT [facility] Anion Gap 11 6 - 16 mmol/L 05/09/2025 6:56 PM EDT [facility] Total Calcium, Plasma 9.1 8.9 - 10.2 mg/dL 05/09/2025 6:56 PM EDT [facility] eGFRcr 109.4 mL/min/1.7 3m*2 05/09/2025 6:56 PM EDT [facility] Comment:Reported eGFRcr in m L/min/1.73m2 is based the CKD-EPI 2020 equation that does not use a race coefficient. Blood Venous blood specimen / Unknown Venipuncture / Unknown 05/09/2025 5:54 PM EDT 05/09/2025 6:25 PM EDT us Selin Lee MD LAB BLOOD ORDERABLES Final Re sult Performing Organization Address City/[facility] Co de Phone Number [facility] [address] [place] [address] * (ABNORMAL) POCT glucose meter (05/09/2025 5:17 [...] Comment 05/09/2025 5:20 PM EDT [facility]ARE LAB Dye Automation Operator ID Char Hinojosa 05/09/2025 5:20 PM EDT [facility] LAB Device ID [id number] 05/09/2025 5:20 PM EDT [facility] LAB Specimen Type POC Capillary 05/09/2025 5:20 PM EDT [facility] Blood Capillary blood specimen / Unknown 05/09/2025 5:17 PM EDT 05/09/2025 5:20 PM EDT us Diane Guzman MD LAB POINT OF CARE T EST DOCKED DEVICE UNSOLICITED RESULTS Final Result Performing Organization Address City/[facility] Co de Phone Number [facility] [address] [place] [address] * ECG Adult (05/09/2025 12:34 PM EDT) EKG DIAGNOSIS CLASS Abnormal MUSE ECG Ventricular Rate 75 BPM MUSE ECG Atrial Rate 75 BPM MUSE ECG PA Interval 176 ms MUSE ECG QRSD Interval 164 ms MUSE ECG QT Interval 454 ms MUSE ECG QTC Interval 506 ms MUSE ECG P [place] 70 degrees MUSE ECG R [place] -38 degrees MUSE ECG T Wave [place] 2 degrees MUSE ECG Diagnosis Normal sinus rhythm MUSE ECG Diagnosis Left axis deviation MUSE ECG Diagnosis Right bundle branch block MUSE ECG Diagnosis Minimal voltage criteria for LVH, may be normal variant ( R in aVL ) MUSE ECG Diagnosis T wave abnormality, consider lateral ischemia MUSE ECG Diagnosis Abnormal ECG MUSE ECG Diagnosis MUSE ECG Diagnosis Confirmed by Garrett Robles ([id number]) on 05/09/2025 2:20:08 PM MUSE ECG 05/09/2025 12:3 4 PM EDT 05/09/2025 2:20 PM EDT Selin Lee MD ECG ORDERABLES Final Result Performing Organization Address City/[facility]/ZIP Co de Phone Number MUSE ECG * (ABNORMAL) POCT glucose meter (05/09/2025 12:25 PM EDT) Pathologist [facility] POCT Glucose 283(H) 74 - 99 mg/dL [...] 05/09/2025 12:27 PM EDT [facility] Dye Automation Operator ID Dunia Montgomery 05/09/2025 12:27 PM EDT HEALTHCARE LAB Device ID [id number] 05/09/2025 12:27 PM EDT [facility]ARE LAB Specimen Type POC Capillary 05/09/2025 12:27 PM EDT [facility] Blood Capillary blood specimen / Unknown 05/09/2025 12:25 PM EDT 05/09/2025 12:27 PM EDT us Diane Guzman MD LAB POINT OF CARE T EST DOCKED DEVICE UNSOLICITED RESULTS Final Result Performing Organization Address City/[facility]/ZIP Co de Phone Number [facility] [address] [place] [address] * (ABNORMAL) POCT glucose meter (05/09/2025 7:52 [...] for testing. Comment 05/09/2025 7:54 AM EDT [facility] Dye Automation Operator ID Char Hinojosa 05/09/2025 7:54 AM EDT [facility] Device ID [id number] 05/09/2025 7:54 AM EDT [facility]ARE LAB Specimen Type POC Capillary 05/09/2025 7:54 AM EDT [facility] LAB Blood Capillary blood specimen / Unknown 05/09/2025 7:52 AM EDT 05/09/2025 7:54 AM EDT Diane Guzman MD LAB POINT OF CARE T EST DOCKED DEVICE UNSOLICITED RESULTS Final Result Performing Organization Address City/State/[facility] Co de Phone Number [facility] [address] [place] [address] * (ABNORMAL) POCT glucose meter (05/08/2025 11:54 PM EDT) [facility] POCT Glucose 273(H) 74 - 99 [...] 05/08/2025 11:56 PM EDT [facility] Dye Automation Operator ID Kaylin Barron 05/08/2025 11:56 PM EDT [facility] Device ID [id number] 05/08/2025 11:56 PM EDT [facility] Specimen Type POC Capillary 05/08/2025 11:56 PM EDT [facility] Blood Capillary blood specimen / Unknown 05/08/2025 11:54 PM EDT 05/08/2025 11:56 PM EDT us Diane Guzman MD LAB POINT OF CARE T EST DOCKED DEVICE UNSOLICITED RESULTS Final Result Performing Organization Address [facility] de Phone Number HEALTHCARE LAB [address] [place] [address] * (ABNORMAL) POCT glucose meter (05/08/2025 7:33 PM EDT) Pathologist [facility] POCT Glucose 310(H) 74 - 99 mg/dL [...] Comment 05/08/2025 7:35 PM EDT HEALTHCARE LAB Dye Automation Operator ID Kaylin Barron 05/08/2025 7:35 PM EDT HEALTHCARE LAB Device ID [id number] 05/08/2025 7:35 PM EDT [facility] Specimen Type POC Capillary 05/08/2025 7:35 PM EDT [facility] Blood Capillary blood specimen / Unknown 05/08/2025 7:33 PM EDT 05/08/2025 7:35 PM EDT us Diane Guzman MD LAB POINT OF CARE T EST DOCKED DEVICE UNSOLICITED RESULTS Final Result Performing Organization Address City/[facility] de Phone Number [facility] [address] [place] [address] * (ABNORMAL) POCT glucose meter (05/08/2025 5:00 PM EDT) Pathologist [facility] POCT Glucose 347(H) 74 - 99 mg/dL [...] 05/08/2025 5:02 PM EDT [facility] Dye Automation Operator ID Char Hinojosa 05/08/2025 5:02 PM EDT [facility] Device ID [id number] 05/08/2025 5:02 PM EDT [facility]ARE LAB Specimen Type POC Capillary 05/08/2025 5:02 PM EDT [facility] LAB Blood Capillary blood specimen / Unknown 05/08/2025 5:00 PM EDT 05/08/2025 5:02 PM EDT Diane Guzman MD LAB POINT OF CARE T EST DOCKED DEVICE UNSOLICITED RESULTS Final Result Performing Organization Address [facility] de Phone Number [facility]ARE [facility] [address] [place] [address] * (ABNORMAL) POCT glucose meter (05/08/2025 11:42 [...] 05/08/2025 11:44 AM EDT [facility] Dye Automation Operator ID Char Hinojosa 05/08/2025 11:44 AM EDT HEALTHCARE LAB Device ID [id number] 05/08/2025 11:44 AM EDT [facility]ARE LAB Specimen Type POC Capillary 05/08/2025 11:44 AM EDT [facility] LAB Blood Capillary blood specimen / Unknown 05/08/2025 11:42 AM EDT 05/08/2025 11:44 AM EDT us Diane Guzman MD LAB POINT OF CARE T EST DOCKED DEVICE UNSOLICITED RESULTS Final Result Performing Organization Address [facility] Co de Phone Number [facility] [address] [place] [address] * (ABNORMAL) POCT glucose meter (05/08/2025 8:05 AM EDT) [facility] POCT Glucose 346(H) 74 - 99 [...] Comment 05/08/2025 8:07 AM EDT [facility]ALTH[facility]ARE LAB Dye Automation Operator ID Char Hinojosa 05/08/2025 8:07 AM EDT [facility]ALTH[facility]ARE LAB Device ID [id number] 05/08/2025 8:07 AM EDT HEALTHCARE LAB Specimen Type POC Capillary 05/08/2025 8:07 AM EDT [facility] Blood Capillary blood specimen / Unknown 05/08/2025 8:05 AM EDT 05/08/2025 8:07 AM EDT Diane Guzman MD LAB POINT OF CARE T EST DOCKED DEVICE UNSOLICITED RESULTS Final Result [facility] [address] [place] [address] * (ABNORMAL) POCT glucose meter (05/08/2025 3:56 AM EDT) [facility] POCT Glucose 388(H) 74 - 99 [...] 05/08/2025 3:58 AM EDT [facility] Dye Automation Operator ID Stella Coleman 05/08/20 3:58 AM EDT [facility] Device ID [id number] 05/08/2025 3:58 AM EDT [facility]ALTH[facility] LAB Specimen Type POC Capillary 05/08/2025 3:58 AM EDT [facility] LAB Blood Capillary blood specimen / Unknown 05/08/2025 3:56 AM EDT 05/08/2025 3:58 AM EDT Diane Guzman MD LAB POINT OF CARE T EST DOCKED DEVICE UNSOLICITED RESULTS Final Result Performing Organization Address City/[facility]/ZIP Co de Phone Number [facility] [address] [place] [address] * (ABNORMAL) POCT glucose meter (05/07/2025 8:14 PM EDT) Pathologist [facility] POCT Glucose 392(H) 74 - 99 mg/dL [...] Comment 05/07/2025 8:15 PM EDT [facility]ALTH[facility]ARE LAB Dye Automation Operator ID Fela Coelho 05/07/2025 8:15 PM EDT HEALTH[facility]ARE LAB Device ID [id number] 05/07/2025 8:15 PM EDT [facility] LAB Specimen Type POC Capillary 05/07/2025 8:15 PM EDT [facility] Blood Capillary blood specimen / Unknown 05/07/2025 8:14 PM EDT 05/07/2025 8:15 PM EDT Diane Guzman MD LAB POINT OF CARE T EST DOCKED DEVICE UNSOLICITED RESULTS Final Result [facility] [address] [place] [address] * (ABNORMAL) POCT glucose meter (05/07/2025 5:10 [...] Comment 05/07/2025 5:13 PM EDT [facility]ALTH[facility] LAB Dye Automation Operator ID Priyanka Negrete 05/07/20 5:13 PM EDT HEALTHCARE LAB Device ID [id number] 05/07/2025 5:13 PM EDT HEALTH[facility]ARE LAB Specimen Type POC Capillary 05/07/2025 5:13 PM EDT [facility] LAB Blood Capillary blood specimen / Unknown 05/07/2025 5:10 PM EDT 05/07/2025 5:13 PM EDT Diane Guzman MD LAB POINT OF CARE T EST DOCKED DEVICE UNSOLICITED RESULTS Final Result Performing Organization Address City/State/[facility] Co de Phone Number [facility] [address] [place] [address] * (ABNORMAL) POCT glucose meter (05/07/2025 12:04 PM EDT) [facility] POCT Glucose 350(H) 74 - 99 [...] 05/07/2025 12:10 PM EDT [facility] Dye Automation Operator ID Priyanka Negrete 05/07/20 12:10 PM EDT [facility] Device ID [id number] 05/07/2025 12:10 PM EDT [facility] Specimen Type POC Capillary 05/07/2025 12:10 PM EDT [facility] LAB Blood Capillary blood specimen / Unknown 05/07/2025 12:04 PM EDT 05/07/2025 12:10 PM EDT Diane Guzman MD LAB POINT OF CARE T EST DOCKED DEVICE UNSOLICITED RESULTS Final Result Performing Organization Address City/[facility] Co de Phone Number [facility] [address] [place] [address] * (ABNORMAL) POCT glucose meter (05/07/2025 7:41 [...] Comment 05/07/2025 7:44 AM EDT [facility]ALTHCARE LAB Dye Automation Operator ID Priyanka Negrete 05/07/20 7:44 AM EDT HEALTHCARE LAB Device ID [id number] 05/07/2025 7:44 AM EDT [facility] Specimen Type POC Capillary 05/07/2025 7:44 AM EDT [facility] Blood Capillary blood specimen / Unknown 05/07/2025 7:41 AM EDT 05/07/2025 7:44 AM EDT Diane Guzman MD LAB POINT OF CARE T EST DOCKED DEVICE UNSOLICITED RESULTS Final Result Performing Organization Address City/[facility] Co de Phone Number [facility] [address] [place] [address] * (ABNORMAL) POCT glucose meter (05/07/2025 3:41 AM EDT) Pathologist [facility] POCT Glucose 407(H) 74 - 99 mg/dL [...] Comment 05/07/2025 3:43 AM EDT HEALTHCARE LAB Dye Automation Operator ID Won Casas 05/07/2025 3:43 AM EDT HEALTHCARE LAB Device ID [id number] 05/07/2025 3:43 AM EDT [facility]ALTH[facility]ARE LAB Specimen Type POC Capillary 05/07/2025 3:43 AM EDT [facility] LAB Blood Capillary blood specimen / Unknown 05/07/2025 3:41 AM EDT 05/07/2025 3:43 AM EDT Diane Guzman MD LAB POINT OF CARE T EST DOCKED DEVICE UNSOLICITED RESULTS Final Result Performing Organization Address [facility] Co de Phone Number [facility] [address] [place] [address] * (ABNORMAL) POCT glucose meter (05/06/2025 8:01 PM EDT) [facility] POCT Glucose 324(H) 74 - 99 mg/dL [...] Comment 05/06/2025 8:02 PM EDT HEALTHCARE LAB Dye Automation Operator ID Won Casas 05/06/2025 8:02 PM EDT HEALTHCARE LAB Device ID [id number] 05/06/2025 8:02 PM EDT [facility]ALTH[facility]ARE LAB Specimen Type POC Capillary 05/06/2025 8:02 PM EDT [facility] LAB Blood Capillary blood specimen / Unknown 05/06/2025 8:01 PM EDT 05/06/2025 8:02 PM EDT us Diane Guzman MD LAB POINT OF CARE T EST DOCKED DEVICE UNSOLICITED RESULTS Final Result Performing Organization Address City/[facility]/ZIP Co de Phone Number [facility] [address] [place] [address] * (ABNORMAL) POCT glucose meter (05/06/2025 4:40 [...] Comment 05/06/2025 4:46 PM EDT [facility]ALTH[facility]ARE LAB Dye Automation Operator ID Sherrell Navarro 05/06/2025 4:46 PM EDT HEALTHCARE LAB Device ID [id number] 05/06/2025 4:46 PM EDT HEALTHCARE LAB Specimen Type POC Capillary 05/06/2025 4:46 PM EDT [facility] Blood Capillary blood specimen / Unknown 05/06/2025 4:40 PM EDT 05/06/2025 4:46 PM EDT Diane Guzman MD LAB POINT OF CARE T EST DOCKED DEVICE UNSOLICITED RESULTS Final Result [facility] [address] [place] [address] * PSA, diagnostic (05/06/2025 12:27 PM EDT) Pathologist [facility] PSA, Diagnostic, Serum 0.03 0.00 - 2.50 ng/mL 05/06/2025 1:10 PM EDT [facility] Blood Venous blood specimen / Unknown Venipuncture / Unknown 05/06/2025 12:27 PM EDT 05/06/2025 12:33 PM EDT Narrative [facility] - 05/06/2025 1:10 PM EDT Performed by Bella electrochemiluminescent immunoassay which is standardized against the PSA Jeb Reference Standard (WHO 96/670). Results obtained with different test methods or kits cannot be used interchangeably. Diane Guzman MD LAB BLOOD ORDERABLES Final Result Performing Organization Address City/[facility]/ZIP Co de Phone Number [facility] [address] [place] [address] * (ABNORMAL) POCT glucose meter (05/06/2025 11:28 AM EDT) Pathologist [facility] POCT Glucose 337(H) 74 - 99 mg/dL [...] Comment 05/06/2025 11:30 AM EDT HEALTHCARE LAB Dye Automation Operator ID Sherrell Navarro 05/06/2025 11:30 AM EDT [facility] Device ID [id number] 05/06/2025 11:30 AM EDT [facility] Specimen Type POC Capillary 05/06/2025 11:30 AM EDT [facility] Blood Capillary blood specimen / Unknown 05/06/2025 11:28 AM EDT 05/06/2025 11:30 AM EDT Diane Guzman MD LAB POINT OF CARE T EST DOCKED DEVICE UNSOLICITED RESULTS Final Result Performing Organization Address [facility] Co de Phone Number [facility] [address] [place] [address] * (ABNORMAL) POCT glucose meter (05/06/2025 8:13 AM EDT) [facility] POCT Glucose 348(H) 74 - 99 [...] for testing. Comment 05/06/2025 8:23 AM EDT [facility] Dye Automation Operator ID Sherrell Navarro 05/06/2025 8:23 AM EDT [facility] Device ID [id number] 05/06/2025 8:23 AM EDT [facility] Specimen Type POC Capillary 05/06/2025 8:23 AM EDT [facility] Blood Capillary blood specimen / Unknown 05/06/2025 8:13 AM EDT 05/06/2025 8:23 AM EDT Diane Guzman MD LAB POINT OF CARE T EST DOCKED DEVICE UNSOLICITED RESULTS Final Result Performing Organization Address City/[facility] Co de Phone Number [facility] [address] [place] [address] * (ABNORMAL) POCT glucose meter (05/06/2025 3:09 AM EDT) Pathologist [facility] POCT Glucose 364(H) 74 - 99 mg/dL [...] Comment 05/06/2025 3:11 AM EDT [facility] Dye Automation Operator ID Won Casas 05/06/2025 3:11 AM EDT [facility] LAB Device ID [id number] 05/06/2025 3:11 AM EDT [facility] Specimen Type POC Capillary 05/06/2025 3:11 AM EDT [facility] Blood Capillary blood specimen / Unknown 05/06/2025 3:09 AM EDT 05/06/2025 3:11 AM EDT us Diane Guzman MD LAB POINT OF CARE T EST DOCKED DEVICE UNSOLICITED RESULTS Final Result Performing Organization Address City/[facility]/ZIP Co de Phone Number [facility] [address] [place] [address] * (ABNORMAL) POCT glucose meter (05/05/2025 8:19 PM EDT) [facility] POCT Glucose 324(H) 74 - 99 [...] Comment 05/05/2025 8:20 PM EDT [facility] Dye Automation Operator ID Won Casas 05/05/2025 8:20 PM EDT [facility] Device ID [id number] 05/05/2025 8:20 PM EDT [facility] Specimen Type POC Capillary 05/05/2025 8:20 PM EDT [facility] Blood Capillary blood specimen / Unknown 05/05/2025 8:19 PM EDT 05/05/2025 8:20 PM EDT Diane Guzman MD LAB POINT OF CARE T EST DOCKED DEVICE UNSOLICITED RESULTS Final Result Performing Organization Address City/State/[facility] Co de Phone Number [facility] [address] [place] [address] * (ABNORMAL) POCT glucose meter (05/05/2025 5:09 PM EDT) [facility] POCT Glucose 371(H) 74 - 99 [...] 05/05/2025 5:14 PM EDT [facility] Dye Automation Operator ID [email or web address] Sherrell Black 05/05/2025 5:14 PM EDT [facility] Device ID [id number] 05/05/2025 5:14 PM EDT [facility] Specimen Type POC Capillary 05/05/2025 5:14 PM EDT [facility] Blood Capillary blood specimen / Unknown 05/05/2025 5:09 PM EDT 05/05/2025 5:14 PM EDT Diane Guzman MD LAB POINT OF CARE T EST DOCKED DEVICE UNSOLICITED RESULTS Final Result Performing Organization Address City/[facility] de Phone Number [facility] [address] [place] [address] * (ABNORMAL) POCT glucose meter (05/05/2025 11:29 [...] Comment 05/05/2025 11:32 AM EDT [facility] Dye Automation Operator ID Sherrell Navarro 05/05/2025 11:32 AM EDT [facility] LAB Device ID [id number] 05/05/2025 11:32 AM EDT [facility] Specimen Type POC Capillary 05/05/2025 11:32 AM EDT [facility] Blood Capillary blood specimen / Unknown 05/05/2025 11:29 AM EDT 05/05/2025 11:32 AM EDT Diane Guzman MD LAB POINT OF CARE T EST DOCKED DEVICE UNSOLICITED RESULTS Final Result Performing Organization Address City/[facility] Co de Phone Number [facility] [address] [place] [address] * (ABNORMAL) POCT glucose meter (05/05/2025 7:55 [...] Comment 05/05/2025 7:57 AM EDT [facility] Dye Automation Operator ID Sherrell Navarro 05/05/2025 7:57 AM EDT [facility] Device ID [id number] 05/05/2025 7:57 AM EDT [facility] Specimen Type POC Capillary 05/05/2025 7:57 AM EDT [facility] Blood Capillary blood specimen / Unknown 05/05/2025 7:55 AM EDT 05/05/2025 7:57 AM EDT us Diane Guzman MD LAB POINT OF CARE T EST DOCKED DEVICE UNSOLICITED RESULTS Final Result [facility] [address] [place] [address] * (ABNORMAL) POCT glucose meter (05/04/2025 7:35 PM EDT) [facility] Signature POCT Glucose 236(H) 74 - 99 mg/dL [...] Comment 05/04/2025 7:37 PM EDT [facility] Dye Automation Operator ID Kaylin Barron 05/04/2025 7:37 PM EDT HE[facility]ARE LAB Device ID [id number] 05/04/2025 7:37 PM EDT [facility] Specimen Type POC Capillary 05/04/2025 7:37 PM EDT [facility] Blood Capillary blood specimen / Unknown 05/04/2025 7:35 PM EDT 05/04/2025 7:37 PM EDT us Diane Guzman MD LAB POINT OF CARE T EST DOCKED DEVICE UNSOLICITED RESULTS Final Result Performing Organization Address [facility] Co de Phone Number [facility] [address] [place] [address] * (ABNORMAL) POCT glucose meter (05/04/2025 4:51 PM EDT) Pathologist [facility] POCT Glucose 233(H) 74 - 99 mg/dL [...] Comment 05/04/2025 4:53 PM EDT [facility] Dye Automation Operator ID Araceli Doran 025 4:53 PM EDT [facility]ARE LAB Device ID [id number] 05/04/2025 4:53 PM EDT [facility] Specimen Type POC Capillary 05/04/2025 4:53 PM EDT [facility] Blood Capillary blood specimen / Unknown 05/04/2025 4:51 PM EDT 05/04/2025 4:53 PM EDT Diane Guzman MD LAB POINT OF CARE T EST DOCKED DEVICE UNSOLICITED RESULTS Final Result Performing Organization Address [facility] Co de Phone Number [facility] [address] [place] [address] * (ABNORMAL) POCT glucose meter (05/04/2025 11:51 AM EDT) Pathologist [facility] POCT Glucose 271(H) 74 - 99 mg/dL [...] for testing. Comment 05/04/2025 11:56 AM EDT [facility] Dye Automation Operator ID Araceli Doran 025 11:56 AM EDT HEALTHCARE LAB Device ID [id number] 05/04/2025 11:56 AM EDT [facility] Specimen Type POC Capillary 05/04/2025 11:56 AM EDT [facility] Blood Capillary blood specimen / Unknown 05/04/2025 11:51 AM EDT 05/04/2025 11:56 AM EDT Diane Guzman MD LAB POINT OF CARE T EST DOCKED DEVICE UNSOLICITED RESULTS Final Result Performing Organization Address City/[facility] Co de Phone Number [facility] [address] [place] [address] * (ABNORMAL) POCT glucose meter (05/04/2025 8:09 AM EDT) [facility] Signature POCT Glucose 259(H) 74 - [...] Comment 05/04/2025 8:17 AM EDT [facility] Dye Automation Operator ID Araceli Doran 8:17 AM EDT [facility]ALTH[facility]ARE LAB Device ID [id number] 05/04/2025 8:17 AM EDT [facility] Specimen Type POC Capillary 05/04/2025 8:17 AM EDT [facility] Blood Capillary blood specimen / Unknown 05/04/2025 8:09 AM EDT 05/04/2025 8:17 AM EDT Diane Guzman MD LAB POINT OF CARE T EST DOCKED DEVICE UNSOLICITED RESULTS Final Result Performing Organization Address City/[facility]/ZIP Co de Phone Number [facility] [address] [place] [address] * (ABNORMAL) POCT glucose meter (05/04/2025 4:44 AM EDT) [facility] POCT Glucose 335(H) 74 - 99 [...] 05/04/2025 4:46 AM EDT [facility] Dye Automation Operator ID Kaylin Barron 05/04/2025 4:46 AM EDT [facility] LAB Device ID [id number] 05/04/2025 4:46 AM EDT [facility] Specimen Type POC Capillary 05/04/2025 4:46 AM EDT [facility] Blood Capillary blood specimen / Unknown 05/04/2025 4:44 AM EDT 05/04/2025 4:46 AM EDT Diane Guzman MD LAB POINT OF CARE T EST DOCKED DEVICE UNSOLICITED RESULTS Final Result Performing Organization Address City/State/[facility] Co de Phone Number [facility] [address] [place] [address] * (ABNORMAL) POCT glucose meter (05/03/2025 7:27 PM EDT) [facility] POCT Glucose 331(H) 74 - 99 [...] 05/03/2025 7:33 PM EDT [facility] Dye Automation Operator ID Kaylin Barron 05/03/2025 7:33 PM EDT [facility] Device ID [id number] 05/03/2025 7:33 PM EDT [facility] Specimen Type POC Capillary 05/03/2025 7:33 PM EDT [facility] Blood Capillary blood specimen / Unknown 05/03/2025 7:27 PM EDT 05/03/2025 7:33 PM EDT Diane Guzman MD LAB POINT OF CARE T EST DOCKED DEVICE UNSOLICITED RESULTS Final Result [facility] [address] [place] [address] * (ABNORMAL) Comprehensive metabolic panel (05/03/2025 6:22 PM EDT) Glucose, Plasma 290(H) 74 - 99 mg/dL 05/03/2025 7:13 PM EDT [facility] BUN, Plasma 14 7 - 21 mg/dL 05/03/2025 7:13 PM EDT [facility] Creatinine, Plasma 0.71 0.70 - 1.20 mg/dL 05/03/2025 7:13 PM EDT [facility] BUN/Creatinine Ratio 20 05/03/2025 7:13 PM EDT [facility] Sodium, Plasma 133(L) 136 - 145 mmol/L 05/03/2025 7:13 PM EDT [facility] Potassium, Plasma 3.6 3.6 - 4.9 mmol/L 05/03/2025 7:13 PM EDT [facility] Chloride, Plasma 87(L) 97 - 107 mmol/L 05/03/2025 7:13 PM EDT [facility] CO2, Plasma 37(H) 22 - 29 mmol/L 05/03/2025 7:13 PM EDT [facility] Anion Gap 9 6 - 16 mmol/L 05/03/2025 7:13 PM EDT [facility] Total Calcium, Plasma 9.4 8.9 - 10.2 mg/dL 05/03/2025 7:13 PM EDT [facility] Total Protein 8.0(H) 6.3 - 7.9 g/dL 05/03/2025 7:13 PM EDT [facility] Albumin, Plasma 3.6 3.5 - 5.2 g/dL 05/03/2025 7:13 PM EDT [facility] AST, Plasma 18 10 - 50 U/L 05/03/2025 7:13 PM EDT [facility] ALT, Plasma 12 10 - 50 U/L 05/03/2025 7:13 PM EDT [facility] Alkaline Phosphatase, Plasma 64 40 - 115 U/L 05/03/2025 7:13 PM EDT [facility] Total Bilirubin, Plasma 0.7 0.2 - 1.1 mg/dL 05/03/2025 7:13 PM EDT [facility] eGFRcr 113.9 mL/min/1.7 3m*2 05/03/2025 7:13 PM EDT [facility] Comment:Reported eGFRcr in m L/min/1.73m2 is based the CKD-EPI 2020 equation that does not use a race coefficient. Blood Venous blood specimen / Unknown Venipuncture / Unknown 05/03/2025 6:22 PM EDT 05/03/2025 6:38 PM EDT us Diane Guzman MD LAB BLOOD ORDERABLES Final Result [facility] [address] [place] [address] * Creatine Kinase (CK), Total (05/03/2025 6:22 PM EDT) [facility] Creatine Kinase, Plasma 54 49 - 320 U/L 05/03/2025 7:13 PM EDT [facility] Blood Venous blood specimen / Unknown Venipuncture / Unknown 05/03/2025 6:22 PM EDT 05/03/2025 6:38 PM EDT Diane Guzman MD LAB BLOOD ORDERABLES Final Result [facility] [address] [place] [address] * (ABNORMAL) POCT glucose meter (05/03/2025 5:30 PM EDT) POCT Glucose 258(H) 74 - 99 mg/dL 05/03/2025 5:33 PM EDT [facility] Comment:Accuracy of a glucos e [...] Comment 05/03/2025 5:33 PM EDT [facility] Dye Automation Operator ID Dunia Montgomery 05/03/2025 5:33 PM EDT HEALTHCARE LAB Device ID [id number] 05/03/2025 5:33 PM EDT [facility] Specimen Type POC Capillary 05/03/2025 5:33 PM EDT [facility] Blood Capillary blood specimen / Unknown 05/03/2025 5:30 PM EDT 05/03/2025 5:33 PM EDT Diane Guzman MD LAB POINT OF CARE T EST DOCKED DEVICE UNSOLICITED RESULTS Final Result Performing Organization Address City/State/[facility] Co de Phone Number [facility] [address] [place] [address] * (ABNORMAL) POCT glucose meter (05/03/2025 11:36 AM EDT) [facility] Signature POCT Glucose 310(H) 74 - [...] Comment 05/03/2025 11:38 AM EDT [facility] Dye Automation Operator ID Kindra Cardoza 05/03/2025 11:38 AM EDT [facility] Device ID [id number] 05/03/2025 11:38 AM EDT [facility] Specimen Type POC Capillary 05/03/2025 11:38 AM EDT [facility] Blood Capillary blood specimen / Unknown 05/03/2025 11:36 AM EDT 05/03/2025 11:38 AM EDT Diane Guzman MD LAB POINT OF CARE T EST DOCKED DEVICE UNSOLICITED RESULTS Final Result Performing Organization Address [facility] de Phone Number [facility] [address] [place] [address] * (ABNORMAL) POCT glucose meter (05/03/2025 8:09 [...] Comment 05/03/2025 8:11 AM EDT [facility] Dye Automation Operator ID Dunia Montgomery 05/03/2025 8:11 AM EDT HEALTH[facility]ARE LAB Device ID [id number] 05/03/2025 8:11 AM EDT [facility] Specimen Type POC Capillary 05/03/2025 8:11 AM EDT [facility] Blood Capillary blood specimen / Unknown 05/03/2025 8:09 AM EDT 05/03/2025 8:11 AM EDT Diane Guzman MD LAB POINT OF CARE T EST DOCKED DEVICE UNSOLICITED RESULTS Final Result Performing Organization Address City/[facility] de Phone Number [facility] [address] [place] [address] * (ABNORMAL) POCT glucose meter (05/03/2025 3:37 AM EDT) POCT Glucose 372(H) 74 - 99 mg/dL [...] Comment 05/03/2025 3:40 AM EDT [facility] Dye Automation Operator ID Maribell Saeed 3:40 AM EDT [facility] LAB Device ID [id number] 05/03/2025 3:40 AM EDT [facility] Specimen Type POC Capillary 05/03/2025 3:40 AM EDT [facility] Blood Capillary blood specimen / Unknown 05/03/2025 3:37 AM EDT 05/03/2025 3:40 AM EDT us Diane Guzman MD LAB POINT OF CARE T EST DOCKED DEVICE UNSOLICITED RESULTS Final Result [facility] [address] [place] [address] * (ABNORMAL) CBC and Differential (05/03/2025 3:16 AM EDT) WBC Count 6.86 3.70 - 10.30 10*3/uL LAB HEMATOLOGY METHOD 05/03/2025 3:33 AM EDT [facility] RBC Count 3.82(L) 4.60 - 6.10 10*6/uL LAB HEMATOLOGY METHOD 05/03/2025 3:33 AM EDT [facility] HGB 8.9(L) 13.7 - 17.5 g/dL LAB HEMATOLOGY METHOD 05/03/2025 3:33 AM EDT [facility] HCT 29.2(L) 40.0 - 51.0 % LAB HEMATOLOGY METHOD 05/03/2025 3:33 AM EDT [facility] Platelet Count 202 155 - 369 10*3/uL LAB HEMATOLOGY METHOD 05/03/2025 3:33 AM EDT [facility] MCV 76(L) 79 - 98 fL LAB HEMATOLOGY METHOD 05/03/2025 3:33 AM EDT [facility] MCH 23.3(L) 26.0 - 32.0 pg LAB HEMATOLOGY METHOD 05/03/2025 3:33 AM EDT [facility] MCHC 30.5(L) 30.7 - 35.5 g/dL LAB HEMATOLOGY METHOD 05/03/2025 3:33 AM EDT [facility] RDW 18.8(H) 11.5 - 14.5 % LAB HEMATOLOGY METHOD 05/03/2025 3:33 AM EDT [facility] MPV 9.1 8.8 - 12.5 fL LAB HEMATOLOGY METHOD 05/03/2025 3:33 AM EDT [facility] nRBC 0.0 <=0.0 per 100 WBCs LAB HEMATOLOGY METHOD 05/03/2025 3:33 AM EDT [facility] Differential Type Automated LAB HEMATOLOGY METHOD 05/03/2025 3:33 AM EDT [facility] Neutrophils % 70 % LAB HEMATOLOGY METHOD 05/03/2025 3:33 AM EDT [facility] Lymphocytes % 15 % LAB HEMATOLOGY METHOD 05/03/2025 3:33 AM EDT [facility] Monocytes % 9 % LAB HEMATOLOGY METHOD 05/03/2025 3:33 AM EDT [facility] Eosinophils % 5 % LAB HEMATOLOGY METHOD 05/03/2025 3:33 AM EDT [facility] Basophils % 0 % LAB HEMATOLOGY METHOD 05/03/2025 3:33 AM EDT [facility] Immature Granulocytes % 1 % LAB HEMATOLOGY METHOD 05/03/2025 3:33 AM EDT [facility] Neutrophils Absolute 4.85 1.60 - 6.10 10*3/uL LAB HEMATOLOGY METHOD 05/03/2025 3:33 AM EDT [facility] Lymphocytes Absolute 1.03(L) 1.20 - 3.90 10*3/uL LAB HEMATOLOGY METHOD 05/03/2025 3:33 AM EDT [facility] Monocytes Absolute 0.59 0.30 - 0.90 10*3/uL LAB HEMATOLOGY METHOD 05/03/2025 3:33 AM EDT [facility] Eosinophils Absolute 0.32 0.00 - 0.50 10*3/uL LAB HEMATOLOGY METHOD 05/03/2025 3:33 AM EDT [facility] Basophils Absolute 0.03 0.00 - 0.10 10*3/uL LAB HEMATOLOGY METHOD 05/03/2025 3:33 AM EDT [facility] Immature Granulocytes Absolute 0.04 0.00 - 0.06 10*3/uL LAB HEMATOLOGY METHOD 05/03/2025 3:33 AM EDT [facility] Blood Venous blood specimen / Unknown Venipuncture / Unknown 05/03/2025 3:16 AM EDT 05/03/2025 3:25 AM EDT Narrative [facility] - 05/03/2025 3:33 AM EDT Therapeutic decision making should be based on absolute values, rather than percentages. us Marjorie Myers MD LAB BLOOD ORDERABLES Final Resul t [facility] [address] [place] [address] * (ABNORMAL) Basic Metabolic Panel, Plasma (05/03/2025 3:16 AM EDT) Glucose, Plasma 399(H) 74 - 99 mg/dL 05/03/2025 4:02 AM EDT [facility] BUN, Plasma 15 7 - 21 mg/dL 05/03/2025 4:02 AM EDT [facility] Creatinine, Plasma 0.78 0.70 - 1.20 mg/dL 05/03/2025 4:02 AM EDT [facility] BUN/Creatinine Ratio 19 05/03/2025 4:02 AM EDT [facility] Sodium, Plasma 136 136 - 145 mmol/L 05/03/2025 4:02 AM EDT [facility] Potassium, Plasma 3.6 3.6 - 4.9 mmol/L 05/03/2025 4:02 AM EDT [facility] Chloride, Plasma 90(L) 97 - 107 mmol/L 05/03/2025 4:02 AM EDT [facility] CO2, Plasma 37(H) 22 - 29 mmol/L 05/03/2025 4:02 AM EDT [facility] Anion Gap 9 6 - 16 mmol/L 05/03/2025 4:02 AM EDT [facility] Total Calcium, Plasma 9.0 8.9 - 10.2 mg/dL 05/03/2025 4:02 AM EDT [facility] eGFRcr 110.7 mL/min/1.7 3m*2 05/03/2025 4:02 AM EDT [facility] Comment:Reported eGFRcr in m L/min/1.73m2 is based the CKD-EPI 2020 equation that does not use a race coefficient. Blood Venous blood specimen / Unknown Venipuncture / Unknown 05/03/2025 3:16 AM EDT 05/03/2025 3:24 AM EDT us Marjorie Myers MD LAB BLOOD ORDERABLES Final Resul t Performing Organization Address City/[facility]/[place] [address] * (ABNORMAL) Magnesium, Plasma (05/03/2025 3:16 AM EDT) Magnesium, Plasma 1.7(L) 1.9 - 2.4 mg/dL 05/03/2025 4:02 AM EDT [facility] Blood Venous blood specimen / Unknown Venipuncture / Unknown 05/03/2025 3:16 AM EDT 05/03/2025 3:24 AM EDT us Marjorie Myers MD LAB BLOOD ORDERABLES Final Resul t Performing Organization Address [facility] [place] [address] * Phosphorus, Plasma (05/03/2025 3:16 AM EDT) Phosphorus, Plasma 3.6 2.5 - 4.5 mg/dL 05/03/2025 4:02 AM EDT [facility] Blood Venous blood specimen / Unknown Venipuncture / Unknown 05/03/2025 3:16 AM EDT 05/03/2025 3:24 AM EDT us Marjorie Myers MD LAB BLOOD ORDERABLES Final Resul t Performing Organization Address City/[facility] [place] [address] * Hepatitis B Core Total Antibody IgG,IgM (05/03/2025 3:16 AM EDT) Hepatitis B Core Total Antibody IgG,IgM Negative Negative 05/03/2025 4:28 AM EDT [facility] Blood Venous blood specimen / Unknown Venipuncture / Unknown 05/03/2025 3:16 AM EDT 05/03/2025 3:24 AM EDT us Diane Guzman MD LAB BLOOD ORDERABLES Final Result Performing Organization Address City/[facility]/ZIP Co de Phone Number [facility] [address] [place] [address] * Hepatitis B Surface Antigen (05/03/2025 3:16 AM EDT) Pathologist [facility] Hepatitis B Surf Antigen Negative Negative 05/03/2025 4:28 AM EDT [facility] Blood Venous blood specimen / Unknown Venipuncture / Unknown 05/03/2025 3:16 AM EDT 05/03/2025 3:24 AM EDT Result [facility] Diane Guzman MD LAB BLOOD ORDERABLES Final Result Performing Organization Address [facility] Co de Phone Number [facility] [address] [place] [address] * Hepatitis B Surface Antibody, Quantitative (05/03/2025 3:16 AM EDT) [facility] Hepatitis B Surface Antibody, Quantitative <8.00 NonReactiv e: <8, Grayzone: 8 - <12, Reactive: >= 12 mIU/mL 05/03/2025 4:28 AM EDT [facility] Comment: Nonreactive. Individual is considered not immune to HBV infection. Blood Venous blood specimen / Unknown Venipuncture / Unknown 05/03/2025 3:16 AM EDT 05/03/2025 3:24 AM EDT us Diane Guzman MD LAB BLOOD ORDERABLES Final Result Performing Organization Address [facility]/ZIP Co de Phone Number [facility] [address] [place] [address] * Hepatitis A Antibody IgG (05/03/2025 3:16 AM EDT) [facility] Hepatitis A Antibody IgG Negative Negative 05/03/2025 4:28 AM EDT [facility] Blood Venous blood specimen / Unknown Venipuncture / Unknown 05/03/2025 3:16 AM EDT 05/03/2025 3:24 AM EDT Diane Guzman MD LAB BLOOD ORDERABLES Final Result [facility] [address] [place] [address] * (ABNORMAL) POCT glucose meter (05/02/2025 8:48 PM EDT) POCT Glucose 325(H) 74 - 99 mg/dL [...] Comment 05/02/2025 8:50 PM EDT [facility] Dye Automation Operator ID Maribell Saeed 8:50 PM EDT [facility] Device ID [id number] 05/02/2025 8:50 PM EDT [facility] Specimen Type POC Capillary 05/02/2025 8:50 PM EDT [facility] Blood Capillary blood specimen / Unknown 05/02/2025 8:48 PM EDT 05/02/2025 8:50 PM EDT us Diane Guzman MD LAB POINT OF CARE T EST DOCKED DEVICE UNSOLICITED RESULTS Final Result Performing Organization Address City/[facility]/ZIP Co de Phone Number [facility] [address] [place] [address] * (ABNORMAL) POCT glucose meter (05/02/2025 4:30 PM EDT) POCT Glucose 250(H) 74 - 99 mg/dL [...] Comment 05/02/2025 4:32 PM EDT [facility] Dye Automation Operator ID Sebastáin Kenny 4:32 PM EDT [facility] Device ID [id number] 05/02/2025 4:32 PM EDT [facility] Specimen Type POC Capillary 05/02/2025 4:32 PM EDT [facility] Blood Capillary blood specimen / Unknown 05/02/2025 4:30 PM EDT 05/02/2025 4:32 PM EDT Diane Guzman MD LAB POINT OF CARE T EST DOCKED DEVICE UNSOLICITED RESULTS Final Result Performing Organization Address City/State/[facility] Phone Number [facility] [address] [place] [address] * Nasopharyngeal Respiratory Panel (05/02/2025 1:05 PM EDT) Nasopharyngeal Respiratory PCR Interpretation Not Detected for all analytes Not Detected for all analytes 05/02/2025 3:14 PM EDT [facility] Swab Nasopharyngeal structure / Unknown Non-blood Collection / Unknown 05/02/2025 1:05 PM EDT 05/02/2025 1:12 PM EDT Narrative [facility] - 05/02/2025 3:14 PM EDT [...] Respiratory PCR Panel is performed using the [employer] ePlex instrument. This test is FDA approved for use with Nasopharyngeal swabs only. This test is used for clinical purposes. It should not be regarded as investigational or for research. [facility] Clinical Microbiology Laboratory is certified under the Clinical Laboratory Improvement Amendments of 1988 (CLIA-88) as qualified to perform high complexity clinical laboratory testing. Diane Guzman MD LAB MICROBIOLOGY - GENERAL ORDERABLES Final Result Performing Organization Address City/[facility]/ZIP Co de Phone Number [facility] [address] [place] [address] * (ABNORMAL) POCT glucose meter (05/02/2025 12:08 [...] Comment 05/02/2025 12:10 PM EDT [facility] [employer] Operator ID [email or web address] 12:10 PM EDT [facility] Device ID [id number] 05/02/2025 12:10 PM EDT [facility] Specimen Type POC Capillary 05/02/2025 12:10 PM EDT [facility] Blood Capillary blood specimen / Unknown 05/02/2025 12:08 PM EDT 05/02/2025 12:10 PM EDT Diane Guzman MD LAB POINT OF CARE T EST DOCKED DEVICE UNSOLICITED RESULTS Final Result Performing Organization Address City/[facility] Co de Phone Number [facility] [address] [place] [address] * (ABNORMAL) POCT glucose meter (05/02/2025 8:11 [...] Comment 05/02/2025 8:12 AM EDT [facility] Dye Automation Operator ID Sebastián Kenny Amarjit 8:12 AM EDT [facility] Device ID [id number] 05/02/2025 8:12 AM EDT [facility] Specimen Type POC Capillary 05/02/2025 8:12 AM EDT [facility] Blood Capillary blood specimen / Unknown 05/02/2025 8:11 AM EDT 05/02/2025 8:12 AM EDT Diane Guzman MD LAB POINT OF CARE T EST DOCKED DEVICE UNSOLICITED RESULTS Final Result Performing Organization Address City/State/[facility] Co de Phone Number [facility] [address] [place] [address] * (ABNORMAL) POCT glucose meter (05/02/2025 4:01 AM EDT) [facility] Signature POCT Glucose 320(H) 74 - 99 [...] Comment 05/02/2025 4:03 AM EDT [facility]ALTH[facility]ARE [facility] Dye Automation Operator ID ColemanStella 05/02/20 4:03 AM EDT [facility]ALTH[facility]ARE [facility] Device ID [id number] 05/02/2025 4:03 AM EDT [facility] Specimen Type POC Capillary 05/02/2025 4:03 AM EDT [facility] Blood Capillary blood specimen / Unknown 05/02/2025 4:01 AM EDT 05/02/2025 4:03 AM EDT us Marjorie Myers MD LAB POINT OF CARE TE ST DOCKED DEVICE UNSOLICITED RESULTS Final Result [facility] [address] [place] [id number] * (ABNORMAL) CBC and Differential (05/02/2025 3:10 AM EDT) WBC Count 7.39 3.70 - 10.30 10*3/uL LAB HEMATOLOGY METHOD 05/02/2025 3:23 AM EDT [facility] RBC Count 3.88(L) 4.60 - 6.10 10*6/uL LAB HEMATOLOGY METHOD 05/02/2025 3:23 AM EDT [facility] HGB 8.8(L) 13.7 - 17.5 g/dL LAB HEMATOLOGY METHOD 05/02/2025 3:23 AM EDT [facility] HCT 29.3(L) 40.0 - 51.0 % LAB HEMATOLOGY METHOD 05/02/2025 3:23 AM EDT [facility] Platelet Count 205 155 - 369 10*3/uL LAB HEMATOLOGY METHOD 05/02/2025 3:23 AM EDT [facility] MCV 76(L) 79 - 98 fL LAB HEMATOLOGY METHOD 05/02/2025 3:23 AM EDT [facility] MCH 22.7(L) 26.0 - 32.0 pg LAB HEMATOLOGY METHOD 05/02/2025 3:23 AM EDT [facility] MCHC 30.0(L) 30.7 - 35.5 g/dL LAB HEMATOLOGY METHOD 05/02/2025 3:23 AM EDT [facility] RDW 19.1(H) 11.5 - 14.5 % LAB HEMATOLOGY METHOD 05/02/2025 3:23 AM EDT [facility] MPV 8.5(L) 8.8 - 12.5 fL LAB HEMATOLOGY METHOD 05/02/2025 3:23 AM EDT [facility] nRBC 0.0 <=0.0 per 100 WBCs LAB HEMATOLOGY METHOD 05/02/2025 3:23 AM EDT [facility] Differential Type Automated LAB HEMATOLOGY METHOD 05/02/2025 3:23 AM EDT [facility] Neutrophils % 74 % LAB HEMATOLOGY METHOD 05/02/2025 3:23 AM EDT [facility] Lymphocytes % 13 % LAB HEMATOLOGY METHOD 05/02/2025 3:23 AM EDT [facility] Monocytes % 8 % LAB HEMATOLOGY METHOD 05/02/2025 3:23 AM EDT [facility] Eosinophils % 4 % LAB HEMATOLOGY METHOD 05/02/2025 3:23 AM EDT [facility] Basophils % 0 % LAB HEMATOLOGY METHOD 05/02/2025 3:23 AM EDT [facility] Immature Granulocytes % 1 % LAB HEMATOLOGY METHOD 05/02/2025 3:23 AM EDT [facility] Neutrophils Absolute 5.45 1.60 - 6.10 10*3/uL LAB HEMATOLOGY METHOD 05/02/2025 3:23 AM EDT [facility] Lymphocytes Absolute 0.96(L) 1.20 - 3.90 10*3/uL LAB HEMATOLOGY METHOD 05/02/2025 3:23 AM EDT [facility] Monocytes Absolute 0.62 0.30 - 0.90 10*3/uL LAB HEMATOLOGY METHOD 05/02/2025 3:23 AM EDT [facility] Eosinophils Absolute 0.30 0.00 - 0.50 10*3/uL LAB HEMATOLOGY METHOD 05/02/2025 3:23 AM EDT [facility] Basophils Absolute 0.01 0.00 - 0.10 10*3/uL LAB HEMATOLOGY METHOD 05/02/2025 3:23 AM EDT [facility] Immature Granulocytes Absolute 0.05 0.00 - 0.06 10*3/uL LAB HEMATOLOGY METHOD 05/02/2025 3:23 AM EDT [facility] Blood Venous blood specimen / Unknown Venipuncture / Unknown 05/02/2025 3:10 AM EDT 05/02/2025 3:14 AM EDT [facility] - 05/02/2025 3:23 AM EDT Therapeutic decision making should be based on absolute values, rather than percentages. us Marjorie Myers MD LAB BLOOD ORDERABLES Final Resul t [facility] [address] [place] [address] * (ABNORMAL) Basic Metabolic Panel, Plasma (05/02/2025 3:10 AM EDT) Glucose, Plasma 358(H) 74 - 99 mg/dL 05/02/2025 3:45 AM EDT [facility] BUN, Plasma 12 7 - 21 mg/dL 05/02/2025 3:45 AM EDT [facility] Creatinine, Plasma 0.73 0.70 - 1.20 mg/dL 05/02/2025 3:45 AM EDT [facility] BUN/Creatinine Ratio 16 05/02/2025 3:45 AM EDT [facility] Sodium, Plasma 134(L) 136 - 145 mmol/L 05/02/2025 3:45 AM EDT [facility] Potassium, Plasma 3.3(L) 3.6 - 4.9 mmol/L 05/02/2025 3:45 AM EDT [facility] Chloride, Plasma 90(L) 97 - 107 mmol/L 05/02/2025 3:45 AM EDT [facility] CO2, Plasma 37(H) 22 - 29 mmol/L 05/02/2025 3:45 AM EDT [facility] Anion Gap 7 6 - 16 mmol/L 05/02/2025 3:45 AM EDT [facility] Total Calcium, Plasma 8.7(L) 8.9 - 10.2 mg/dL 05/02/2025 3:45 AM EDT [facility] eGFRcr 112.9 mL/min/1.7 3m*2 05/02/2025 3:45 AM EDT [facility] Comment:Reported eGFRcr in m L/min/1.73m2 is based the CKD-EPI 2020 equation that does not use a race coefficient. Blood Venous blood specimen / Unknown Venipuncture / Unknown 05/02/2025 3:10 AM EDT 05/02/2025 3:15 AM EDT us Marjorie Myers MD LAB BLOOD ORDERABLES Final Resul t [facility] [address] [place] [address] * (ABNORMAL) Magnesium, Plasma (05/02/2025 3:10 AM EDT) Magnesium, Plasma 1.6(L) 1.9 - 2.4 mg/dL 05/02/2025 3:45 AM EDT [facility] Blood Venous blood specimen / Unknown Venipuncture / Unknown 05/02/2025 3:10 AM EDT 05/02/2025 3:15 AM EDT us Marjorie Myers MD LAB BLOOD ORDERABLES Final Resul t [facility] [address] [place] [address] * Phosphorus, Plasma (05/02/2025 3:10 AM EDT) Phosphorus, Plasma 3.0 2.5 - 4.5 mg/dL 05/02/2025 3:45 AM EDT [facility] Blood Venous blood specimen / Unknown Venipuncture / Unknown 05/02/2025 3:10 AM EDT 05/02/2025 3:15 AM EDT us Marjorie Myers MD LAB BLOOD ORDERABLES Final Resul t [facility] [address] [place] [address] * Creatine Kinase (CK), Total (05/02/2025 3:10 AM EDT) Creatine Kinase, Plasma 50 49 - 320 U/L 05/02/2025 3:45 AM EDT [facility] Blood Venous blood specimen / Unknown Venipuncture / Unknown 05/02/2025 3:10 AM EDT 05/02/2025 3:15 AM EDT us Marjorie Myers MD LAB BLOOD ORDERABLES Final Resul t [facility] [address] [place] [address] * (ABNORMAL) POCT glucose meter (05/01/2025 8:26 PM EDT) [facility] POCT Glucose 316(H) 74 - 99 mg/dL [...] Comment 05/01/2025 8:27 PM EDT [facility] Dye Automation Operator ID Stella Coleman 05/01/20 8:27 PM EDT [facility] LAB Device ID [id number] 05/01/2025 8:27 PM EDT [facility] Specimen Type POC Capillary 05/01/2025 8:27 PM EDT [facility] Blood Capillary blood specimen / Unknown 05/01/2025 8:26 PM EDT 05/01/2025 8:27 PM EDT Marjorie Myers MD LAB POINT OF CARE TE ST DOCKED DEVICE UNSOLICITED RESULTS Final Result Performing Organization Address City/State/[facility] Co de Phone Number [facility] [address] [place] [phone] * (ABNORMAL) POCT glucose meter (05/01/2025 5:55 PM EDT) [facility] POCT Glucose 294(H) 74 - 99 mg/dL [...] Comment 05/01/2025 5:57 PM EDT [facility] Dye Automation Operator ID Sebastián Kenny 5:57 PM EDT [facility] Device ID [id number] 05/01/2025 5:57 PM EDT [facility] Specimen Type POC Capillary 05/01/2025 5:57 PM EDT [facility] Blood Capillary blood specimen / Unknown 05/01/2025 5:55 PM EDT 05/01/2025 5:57 PM EDT Marjorie Myers MD LAB POINT OF CARE TE ST DOCKED DEVICE UNSOLICITED RESULTS Final Result Performing Organization Address City/[facility]/ZIP Co de Phone Number [facility] [address] [place] [address] * (ABNORMAL) POCT glucose meter (05/01/2025 11:51 [...] for testing. Comment 05/01/2025 11:53 AM EDT [facility] Dye Automation Operator ID Sebastián Kenny 11:53 AM EDT [facility] Device ID [id number] 05/01/2025 11:53 AM EDT [facility] Specimen Type POC Capillary 05/01/2025 11:53 AM EDT [facility] Blood Capillary blood specimen / Unknown 05/01/2025 11:51 AM EDT 05/01/2025 11:53 AM EDT Marjorie Myers MD LAB POINT OF CARE TE ST DOCKED DEVICE UNSOLICITED RESULTS Final Result [facility] [address] [place] [address] * (ABNORMAL) POCT glucose meter (05/01/2025 9:13 [...] Comment 05/01/2025 9:15 AM EDT [facility] Dye Automation Operator ID Francisco Javier Martin 05/01/2025 9:15 AM EDT [facility] Device ID [id number] 05/01/2025 9:15 AM EDT [facility] Specimen Type POC Capillary 05/01/2025 9:15 AM EDT [facility] Blood Capillary blood specimen / Unknown 05/01/2025 9:13 AM EDT 05/01/2025 9:15 AM EDT Marjorie Myers MD LAB POINT OF CARE TE ST DOCKED DEVICE UNSOLICITED RESULTS Final Result Performing Organization Address City/State/[facility] Phone Number [facility] [address] [place] [address] * Surgical Pathology Exam (05/01/2025 8:13 AM EDT) Case Report Surgical Pathology Case: [id number] Authorizing Provider: Mary Vicente MD Collected: 05/01/2025 0813 Ordering Location: [facility] A OPERATING ROOM Received: 05/01/2025 0917 Pathologist: Vidya Ly MD Specimens: A) - Toe, Right, R 5th toe B) - Toe, Right, R 5th toe margin 05/09/2025 9:56 AM EDT [facility] Correction History Case amended to provide diagnosis after final decal sections received 05/09/2025 9:56 AM EDT [facility] Comment:These results have b een appended to a previously final verified report. Final Diagnosis A. RIGHT FIFTH TOE, AMPUTATION: - ULCER WITH SUPPURATIVE INFLAMMATION, GANGRENOUS NECROSIS, AND UNDERLYING ACUTE OSTEOMYELITIS. B. RIGHT FIFTH TOE MARGIN, RESECTION: - NO ACUTE OSTEOMYELITIS IDENTIFIED. 05/09/2025 9:56 AM EDT [facility] Amendment electronically signed by Vidya Ly MD on 05/09/2025 at 0956 EDT at 1233 EDT Comment:Corrected result: Pr eviously reported as [Previous value contains rich text formatting which cannot be displayed here] (see Result History) on 05/05/2025 at 1233 EDT. 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 R 5TH [...] The wound extends into the underlying bone. Assembling Fabricator sections are submitted as follows: A1-A2: Necrotic lateral skin A3: Bone underlying gaping wound, following decalcification A4: Bone margin, following decalcification BLAS Kwok ([facility]) B. R 5TH TOE MARGIN The specimen is received fresh and placed in formalin, labeled R 5th toe MARGIN , and consists of a 2.8 x 2.8 x 0.6 cm aggregate of hemorrhagic bony fragments. The specimen is entirely submitted in cassette B1, following decalcification. Cold Time: 25m BLSA Kwok ([facility]) 05/09/2025 9:56 AM EDT [facility] Note: 05/09/2025 9:56 AM EDT [facility] Comment:Corrected result: Pr eviously reported [...] Edited Result - Final Performing Organization Address [facility]/ZIP Co de Phone Number [facility] [address] [place] [address] * Type and Screen (05/01/2025 6:49 AM EDT) Pathologist [facility] ABO/Rh O Positive 05/01/2025 6:53 AM EDT BLOOD BANK Antibody Screen Negative 05/01/2025 6:53 AM EDT BLOOD BANK Specimen Expiration 05/04/2025 23:59 05/01/2025 6:53 AM EDT BLOOD BANK Blood Venous blood specimen / Unknown Venipuncture / Unknown 05/01/2025 6:49 AM EDT 05/01/2025 6:53 AM EDT Yanna Calhoun DO LAB BLOOD BANK TEST ORDERA BLES Final Result Performing Organization Address [facility] de Phone Number BLOOD BANK [address] * (ABNORMAL) POCT glucose meter (05/01/2025 6:48 AM EDT) Pathologist [facility] POCT Glucose 222(H) [...] 05/01/2025 6:50 AM EDT [facility] Dye Automation Operator ID Emelina Romero 6:50 AM EDT [facility] Device ID [id number] 05/01/2025 6:50 AM EDT [facility] Specimen Type POC Venous 05/01/2025 6:50 AM EDT [facility] Blood Venous blood specimen / Unknown 05/01/2025 6:48 AM EDT 05/01/2025 6:50 AM EDT us Marjorie Myers MD LAB POINT OF CARE TE ST DOCKED DEVICE UNSOLICITED RESULTS Final Result Performing Organization Address City/[facility]/ZIP Co de Phone Number [facility] [address] [place] [address] * Creatine Kinase (CK), Total (05/01/2025 2:14 AM EDT) Creatine Kinase, Plasma 60 49 - 320 U/L 05/01/2025 2:53 AM EDT [facility] Blood Venous blood specimen / Unknown Venipuncture / Unknown 05/01/2025 2:14 AM EDT 05/01/2025 2:26 AM EDT us Marjorie Myers MD LAB BLOOD ORDERABLES Final Resul t [facility] [address] [place] [address] * (ABNORMAL) CBC and Differential (05/01/2025 2:14 AM EDT) WBC Count 6.96 3.70 - 10.30 10*3/uL LAB HEMATOLOGY METHOD 05/01/2025 2:37 AM EDT [facility] RBC Count 4.23(L) 4.60 - 6.10 10*6/uL LAB HEMATOLOGY METHOD 05/01/2025 2:37 AM EDT [facility] HGB 9.8(L) 13.7 - 17.5 g/dL LAB HEMATOLOGY METHOD 05/01/2025 2:37 AM EDT [facility] HCT 32.5(L) 40.0 - 51.0 % LAB HEMATOLOGY METHOD 05/01/2025 2:37 AM EDT [facility] Platelet Count 218 155 - 369 10*3/uL LAB HEMATOLOGY METHOD 05/01/2025 2:37 AM EDT [facility] MCV 77(L) 79 - 98 fL LAB HEMATOLOGY METHOD 05/01/2025 2:37 AM EDT [facility] MCH 23.2(L) 26.0 - 32.0 pg LAB HEMATOLOGY METHOD 05/01/2025 2:37 AM EDT [facility] MCHC 30.2(L) 30.7 - 35.5 g/dL LAB HEMATOLOGY METHOD 05/01/2025 2:37 AM EDT [facility] RDW 19.1(H) 11.5 - 14.5 % LAB HEMATOLOGY METHOD 05/01/2025 2:37 AM EDT [facility] MPV 8.4(L) 8.8 - 12.5 fL LAB HEMATOLOGY METHOD 05/01/2025 2:37 AM EDT [facility] nRBC 0.0 <=0.0 per 100 WBCs LAB HEMATOLOGY METHOD 05/01/2025 2:37 AM EDT [facility] Differential Type Automated LAB HEMATOLOGY METHOD 05/01/2025 2:37 AM EDT [facility] Neutrophils % 76 % LAB HEMATOLOGY METHOD 05/01/2025 2:37 AM EDT [facility] Lymphocytes % 11 % LAB HEMATOLOGY METHOD 05/01/2025 2:37 AM EDT [facility] Monocytes % 8 % LAB HEMATOLOGY METHOD 05/01/2025 2:37 AM EDT [facility] Eosinophils % 4 % LAB HEMATOLOGY METHOD 05/01/2025 2:37 AM EDT [facility] Basophils % 0 % LAB HEMATOLOGY METHOD 05/01/2025 2:37 AM EDT [facility] Immature Granulocytes % 1 % LAB HEMATOLOGY METHOD 05/01/2025 2:37 AM EDT [facility] Neutrophils Absolute 5.26 1.60 - 6.10 10*3/uL LAB HEMATOLOGY METHOD 05/01/2025 2:37 AM EDT [facility] Lymphocytes Absolute 0.79(L) 1.20 - 3.90 10*3/uL LAB HEMATOLOGY METHOD 05/01/2025 2:37 AM EDT [facility] Monocytes Absolute 0.57 0.30 - 0.90 10*3/uL LAB HEMATOLOGY METHOD 05/01/2025 2:37 AM EDT [facility] Eosinophils Absolute 0.28 0.00 - 0.50 10*3/uL LAB HEMATOLOGY METHOD 05/01/2025 2:37 AM EDT [facility] Basophils Absolute 0.02 0.00 - 0.10 10*3/uL LAB HEMATOLOGY METHOD 05/01/2025 2:37 AM EDT [facility] Immature Granulocytes Absolute 0.04 0.00 - 0.06 10*3/uL LAB HEMATOLOGY METHOD 05/01/2025 2:37 AM EDT [facility] Blood Venous blood specimen / Unknown Venipuncture / Unknown 05/01/2025 2:14 AM EDT 05/01/2025 2:26 AM EDT Narrative [facility] - 05/01/2025 2:37 AM EDT Therapeutic decision making should be based on absolute values, rather than percentages. us Marjorie Myers MD LAB BLOOD ORDERABLES Final Resul t [facility] [address] [place] [address] * (ABNORMAL) Basic Metabolic Panel, Plasma (05/01/2025 2:14 AM EDT) Glucose, Plasma 266(H) 74 - 99 mg/dL 05/01/2025 2:53 AM EDT [facility] BUN, Plasma 9 7 - 21 mg/dL 05/01/2025 2:53 AM EDT [facility] Creatinine, Plasma 0.71 0.70 - 1.20 mg/dL 05/01/2025 2:53 AM EDT [facility] BUN/Creatinine Ratio 13 05/01/2025 2:53 AM EDT [facility] Sodium, Plasma 137 136 - 145 mmol/L 05/01/2025 2:53 AM EDT [facility] Potassium, Plasma 3.4(L) 3.6 - 4.9 mmol/L 05/01/2025 2:53 AM EDT [facility] Chloride, Plasma 91(L) 97 - 107 mmol/L 05/01/2025 2:53 AM EDT [facility] CO2, Plasma 36(H) 22 - 29 mmol/L 05/01/2025 2:53 AM EDT [facility] Anion Gap 10 6 - 16 mmol/L 05/01/2025 2:53 AM EDT [facility] Total Calcium, Plasma 8.6(L) 8.9 - 10.2 mg/dL 05/01/2025 2:53 AM EDT [facility] eGFRcr 113.9 mL/min/1.7 3m*2 05/01/2025 2:53 AM EDT [facility] Comment:Reported eGFRcr in m L/min/1.73m2 is based the CKD-EPI 2020 equation that does not use a race coefficient. Blood Venous blood specimen / Unknown Venipuncture / Unknown 05/01/2025 2:14 AM EDT 05/01/2025 2:26 AM EDT us Marjorie Myers MD LAB BLOOD ORDERABLES Final Resul t Performing Organization Address City/[facility] Co de Phone Number [facility] [address] [place] [address] * (ABNORMAL) Magnesium, Plasma (05/01/2025 2:14 AM EDT) Magnesium, Plasma 1.8(L) 1.9 - 2.4 mg/dL 05/01/2025 2:53 AM EDT [facility] Blood Venous blood specimen / Unknown Venipuncture / Unknown 05/01/2025 2:14 AM EDT 05/01/2025 2:26 AM EDT us Marjorie Myers MD LAB BLOOD ORDERABLES Final Resul t [facility] [address] [place] [address] * Phosphorus, Plasma (05/01/2025 2:14 AM EDT) Phosphorus, Plasma 3.0 2.5 - 4.5 mg/dL 05/01/2025 2:53 AM EDT [facility] Blood Venous blood specimen / Unknown Venipuncture / Unknown 05/01/2025 2:14 AM EDT 05/01/2025 2:26 AM EDT Marjorie Myers MD LAB BLOOD ORDERABLES Final Resul t [facility] [address] [place] [address] * (ABNORMAL) POCT glucose meter (04/30/2025 8:21 PM EDT) POCT Glucose 226(H) 74 - 99 mg/dL 04/30/2025 8:23 PM EDT [facility]ALTH[facility]ARE [facility] Comment:Accuracy of a [...] for testing. Comment 04/30/2025 8:23 PM EDT [facility] Dye Automation Operator ID Sandra Perez 04/30/20 8:23 PM EDT [facility] Device ID [id number] 04/30/2025 8:23 PM EDT [facility] Specimen Type POC Capillary 04/30/2025 8:23 PM EDT [facility] Blood Capillary blood specimen / Unknown 04/30/2025 8:21 PM EDT 04/30/2025 8:23 PM EDT Marjorie Myers MD LAB POINT OF CARE TE ST DOCKED DEVICE UNSOLICITED RESULTS Final Result Performing Organization Address City/[facility]/ZIP Co de Phone Number [facility] [address] [place] [address] * (ABNORMAL) POCT glucose meter (04/30/2025 4:19 [...] Comment 04/30/2025 4:54 PM EDT [facility]ALTH[facility]ARE [facility] Dye Automation Operator ID Priyanka Negrete 04/30/20 4:54 PM EDT [facility]ALTH[facility]ARE LAB Device ID [id number] 04/30/2025 4:54 PM EDT [facility]ARE [facility] Specimen Type POC Capillary 04/30/2025 4:54 PM EDT [facility] Blood Capillary blood specimen / Unknown 04/30/2025 4:19 PM EDT 04/30/2025 4:54 PM EDT us Marjorie Myers MD LAB POINT OF CARE TE ST DOCKED DEVICE UNSOLICITED RESULTS Final Result Performing Organization Address City/[facility]/ZIP Co de Phone Number [facility] [address] [place] [address] * (ABNORMAL) POCT glucose meter (04/30/2025 12:11 PM EDT) POCT Glucose 226(H) 74 - [...] Comment 04/30/2025 12:50 PM EDT [facility] Dye Automation Operator ID Priyanka Negrete 04/30/20 12:50 PM EDT [facility]ARE LAB Device ID [id number] 04/30/2025 12:50 PM EDT [facility] Specimen Type POC Capillary 04/30/2025 12:50 PM EDT [facility] Blood Capillary blood specimen / Unknown 04/30/2025 12:11 PM EDT 04/30/2025 12:50 PM EDT us Marjorie Myers MD LAB POINT OF CARE TE ST DOCKED DEVICE UNSOLICITED RESULTS Final Result Performing Organization Address City/[facility]/ZIP Co de Phone Number [facility] [address] [place] [address] * (ABNORMAL) POCT glucose meter (04/30/2025 8:18 AM EDT) [facility] POCT Glucose 212(H) 74 - 99 [...] Comment 04/30/2025 8:55 AM EDT [facility]ARE [facility] Dye Automation Operator ID Priyanka Negrete 04/30/20 8:55 AM EDT [facility]ALTH[facility]ARE LAB Device ID [id number] 04/30/2025 8:55 AM EDT [facility] Specimen Type POC Capillary 04/30/2025 8:55 AM EDT [facility] Blood Capillary blood specimen / Unknown 04/30/2025 8:18 AM EDT 04/30/2025 8:55 AM EDT Marjorie Myers MD LAB POINT OF CARE TE ST DOCKED DEVICE UNSOLICITED RESULTS Final Result Performing Organization Address City/State/[facility] Co de Phone Number [facility] [address] [place] [address] * (ABNORMAL) CBC and Differential (04/30/2025 3:19 AM EDT) [facility] WBC Count 8.84 3.70 - 10.30 10*3/uL LAB HEMATOLOGY METHOD 04/30/2025 3:35 AM EDT [facility] RBC Count 4.31(L) 4.60 - 6.10 10*6/uL LAB HEMATOLOGY METHOD 04/30/2025 3:35 AM EDT [facility] HGB 9.6(L) 13.7 - 17.5 g/dL LAB HEMATOLOGY METHOD 04/30/2025 3:35 AM EDT [facility] HCT 32.6(L) 40.0 - 51.0 % LAB HEMATOLOGY METHOD 04/30/2025 3:35 AM EDT [facility] Platelet Count 245 155 - 369 10*3/uL LAB HEMATOLOGY METHOD 04/30/2025 3:35 AM EDT [facility] MCV 76(L) 79 - 98 fL LAB HEMATOLOGY METHOD 04/30/2025 3:35 AM EDT [facility] MCH 22.3(L) 26.0 - 32.0 pg LAB HEMATOLOGY METHOD 04/30/2025 3:35 AM EDT [facility] MCHC 29.4(L) 30.7 - 35.5 g/dL LAB HEMATOLOGY METHOD 04/30/2025 3:35 AM EDT [facility] RDW 19.1(H) 11.5 - 14.5 % LAB HEMATOLOGY METHOD 04/30/2025 3:35 AM EDT [facility] MPV 8.5(L) 8.8 - 12.5 fL LAB HEMATOLOGY METHOD 04/30/2025 3:35 AM EDT [facility] nRBC 0.0 <=0.0 per 100 WBCs LAB HEMATOLOGY METHOD 04/30/2025 3:35 AM EDT [facility] Differential Type Automated LAB HEMATOLOGY METHOD 04/30/2025 3:35 AM EDT [facility] Neutrophils % 78 % LAB HEMATOLOGY METHOD 04/30/2025 3:35 AM EDT [facility] Lymphocytes % 11 % LAB HEMATOLOGY METHOD 04/30/2025 3:35 AM EDT [facility] Monocytes % 7 % LAB HEMATOLOGY METHOD 04/30/2025 3:35 AM EDT [facility] Eosinophils % 3 % LAB HEMATOLOGY METHOD 04/30/2025 3:35 AM EDT [facility] Basophils % 0 % LAB HEMATOLOGY METHOD 04/30/2025 3:35 AM EDT [facility] Immature Granulocytes % 1 % LAB HEMATOLOGY METHOD 04/30/2025 3:35 AM EDT [facility] Neutrophils Absolute 6.90(H) 1.60 - 6.10 10*3/uL LAB HEMATOLOGY METHOD 04/30/2025 3:35 AM EDT [facility] Lymphocytes Absolute 0.95(L) 1.20 - 3.90 10*3/uL LAB HEMATOLOGY METHOD 04/30/2025 3:35 AM EDT [facility] Monocytes Absolute 0.64 0.30 - 0.90 10*3/uL LAB HEMATOLOGY METHOD 04/30/2025 3:35 AM EDT [facility] Eosinophils Absolute 0.29 0.00 - 0.50 10*3/uL LAB HEMATOLOGY METHOD 04/30/2025 3:35 AM EDT [facility] Basophils Absolute 0.02 0.00 - 0.10 10*3/uL LAB HEMATOLOGY METHOD 04/30/2025 3:35 AM EDT [facility] Immature Granulocytes Absolute 0.04 0.00 - 0.06 10*3/uL LAB HEMATOLOGY METHOD 04/30/2025 3:35 AM EDT [facility] Blood Venous blood specimen / Unknown Venipuncture / Unknown 04/30/2025 3:19 AM EDT 04/30/2025 3:26 AM EDT Narrative [facility] - 04/30/2025 3:35 AM EDT Therapeutic decision making should be based on absolute values, rather than percentages. us Marjorie Myers MD LAB BLOOD ORDERABLES Final Resul t [facility] [address] [place] [address] * (ABNORMAL) Basic Metabolic Panel, Plasma (04/30/2025 3:19 AM EDT) Glucose, Plasma 254(H) 74 - 99 mg/dL 04/30/2025 3:56 AM EDT [facility] BUN, Plasma 11 7 - 21 mg/dL 04/30/2025 3:56 AM EDT [facility] Creatinine, Plasma 0.77 0.70 - 1.20 mg/dL 04/30/2025 3:56 AM EDT [facility] BUN/Creatinine Ratio 14 04/30/2025 3:56 AM EDT [facility] Sodium, Plasma 137 136 - 145 mmol/L 04/30/2025 3:56 AM EDT [facility] Potassium, Plasma 3.3(L) 3.6 - 4.9 mmol/L 04/30/2025 3:56 AM EDT [facility] Chloride, Plasma 91(L) 97 - 107 mmol/L 04/30/2025 3:56 AM EDT [facility] CO2, Plasma 36(H) 22 - 29 mmol/L 04/30/2025 3:56 AM EDT [facility] Anion Gap 10 6 - 16 mmol/L 04/30/2025 3:56 AM EDT [facility] Total Calcium, Plasma 8.7(L) 8.9 - 10.2 mg/dL 04/30/2025 3:56 AM EDT [facility] eGFRcr 111.1 mL/min/1.7 3m*2 04/30/2025 3:56 AM EDT [facility] Comment:Reported eGFRcr in m L/min/1.73m2 is based the CKD-EPI 2020 equation that does not use a race coefficient. Blood Venous blood specimen / Unknown Venipuncture / Unknown 04/30/2025 3:19 AM EDT 04/30/2025 3:26 AM EDT us Marjorie Myers MD LAB BLOOD ORDERABLES Final Resul t Performing Organization Address City/[facility]/ZIP Co de Phone Number [facility] [address] [place] [address] * (ABNORMAL) Magnesium, Plasma (04/30/2025 3:19 AM EDT) Magnesium, Plasma 1.5(L) 1.9 - 2.4 mg/dL 04/30/2025 3:56 AM EDT [facility] Blood Venous blood specimen / Unknown Venipuncture / Unknown 04/30/2025 3:19 AM EDT 04/30/2025 3:26 AM EDT us Marjorie Myers MD LAB BLOOD ORDERABLES Final Resul t [facility] [address] [place] [address] * Phosphorus, Plasma (04/30/2025 3:19 AM EDT) Phosphorus, Plasma 2.7 2.5 - 4.5 mg/dL 04/30/2025 3:56 AM EDT [facility] Blood Venous blood specimen / Unknown Venipuncture / Unknown 04/30/2025 3:19 AM EDT 04/30/2025 3:26 AM EDT Marjorie Myers MD LAB BLOOD ORDERABLES Final Resul t Performing Organization Address City/[facility] Co de Phone Number [facility] [address] [place] [address] * (ABNORMAL) POCT glucose meter (04/29/2025 7:38 [...] Comment 04/29/2025 9:20 PM EDT [facility] Dye Automation Operator ID Ervin Du V 025 9:20 PM EDT [facility] LAB Device ID [id number] 04/29/2025 9:20 PM EDT [facility] Specimen Type POC Capillary 04/29/2025 9:20 PM EDT [facility] Blood Capillary blood specimen / Unknown 04/29/2025 7:38 PM EDT 04/29/2025 9:20 PM EDT Marjorie Myers MD LAB POINT OF CARE TE ST DOCKED DEVICE UNSOLICITED RESULTS Final Result Performing Organization Address City/[facility] Co de Phone Number [facility] [address] [place] [address] * (ABNORMAL) POCT glucose meter (04/29/2025 5:21 [...] Comment 04/29/2025 5:23 PM EDT [facility] Dye Automation Operator ID Rocio Dozier 04/29/20 5:23 PM EDT [facility] Device ID [id number] 04/29/2025 5:23 PM EDT [facility] Specimen Type POC Capillary 04/29/2025 5:23 PM EDT [facility] Blood Capillary blood specimen / Unknown 04/29/2025 5:21 PM EDT 04/29/2025 5:23 PM EDT Marjorie Myers MD LAB POINT OF CARE TE ST DOCKED DEVICE UNSOLICITED RESULTS Final Result Performing Organization Address City/[facility] Co de Phone Number [facility] [address] [place] [address] * (ABNORMAL) POCT glucose meter (04/29/2025 11:15 [...] Comment 04/29/2025 11:17 AM EDT [facility] Dye Automation Operator ID Rocio Dozier 04/29/20 11:17 AM EDT [facility]ARE LAB Device ID [id number] 04/29/2025 11:17 AM EDT [facility] Specimen Type POC Capillary 04/29/2025 11:17 AM EDT [facility] Blood Capillary blood specimen / Unknown 04/29/2025 11:15 AM EDT 04/29/2025 11:17 AM EDT us Marjorie Myers MD LAB POINT OF CARE TE ST DOCKED DEVICE UNSOLICITED RESULTS Final Result Performing Organization Address City/[facility]/ZIP Co de Phone Number [facility] [address] [place] [address] * (ABNORMAL) POCT glucose meter (04/29/2025 7:13 AM EDT) [facility] POCT Glucose 269(H) 74 - 99 [...] Comment 04/29/2025 7:14 AM EDT [facility] Dye Automation Operator ID Rocio Dozier 04/29/20 7:14 AM EDT [facility] LAB Device ID [id number] 04/29/2025 7:14 AM EDT [facility] Specimen Type POC Capillary 04/29/2025 7:14 AM EDT [facility] Blood Capillary blood specimen / Unknown 04/29/2025 7:13 AM EDT 04/29/2025 7:14 AM EDT Marjorie Myers MD LAB POINT OF CARE TE ST DOCKED DEVICE UNSOLICITED RESULTS Final Result [facility] [address] [place] [address] * Folate (04/29/2025 3:04 AM EDT) [facility] Folate, Serum 10.5 >4.6 ng/mL 04/29/2025 4:05 AM EDT [facility] Blood Venous blood specimen / Unknown Venipuncture / Unknown 04/29/2025 3:04 AM EDT 04/29/2025 3:20 AM EDT us Sy De La Fuente PAYROLL SECRETARY, DNP LAB BLOOD ORDERABLES Fin al Result [facility] [address] [place] [address] * Vitamin B12 (04/29/2025 3:04 AM EDT) Vitamin B12, Serum 338 210 - 1,033 pg/mL 04/29/2025 4:06 AM EDT [facility] Blood Venous blood specimen / Unknown Venipuncture / Unknown 04/29/2025 3:04 AM EDT 04/29/2025 3:20 AM EDT us Sy De La Fuente APRN, DENISE LAB BLOOD ORDERABLES Fin al Result Performing Organization Address City/[facility] de Phone Number [facility] [address] [place] [address] * (ABNORMAL) Iron & Total Iron Binding Capacity, Plasma (Includes Transferrin) (04/29/2025 3:04 AM EDT) Iron, Plasma 36(L) 50 - 170 ug/dL 04/29/2025 3:55 AM EDT [facility] Transferrin, Plasma 197(L) 200 - 360 mg/dL 04/29/2025 3:55 AM EDT [facility] Total Iron Binding Capacity, Plasma 246 240 - 450 ug/mL 04/29/2025 3:55 AM EDT [facility] Transferrin Saturation 15 14 - 50 % 04/29/2025 3:55 AM EDT [facility] Blood Venous blood specimen / Unknown Venipuncture / Unknown 04/29/2025 3:04 AM EDT 04/29/2025 3:19 AM EDT us Sy De La Fuente APRN, DNP LAB BLOOD ORDERABLES Fin al Result Performing Organization Address [facility] de Phone Number [facility] [address] [place] [address] * Ferritin (04/29/2025 3:04 AM EDT) Ferritin, Serum 40 20 - 400 ng/mL 04/29/2025 4:06 AM EDT [facility] Blood Venous blood specimen / Unknown Venipuncture / Unknown 04/29/2025 3:04 AM EDT 04/29/2025 3:20 AM EDT us Dirk A Episcopal PAYROLL SECRETARY, DNP LAB BLOOD ORDERABLES Fin al Result Performing Organization Address City/[facility]/ZIP Co de Phone Number [facility] [address] [place] [address] * Cortisol (04/29/2025 3:04 AM EDT) Cortisol 2.80 Before 10am: 3.7 - 19.4. After 5pm: 2.9 - 17.3 ug/dL 04/29/2025 4:22 AM EDT [facility] Comment:Testing performed on dentalDoctors, standardized against CORRECTION Reference Standard concentration values assigned by LC-MS/MS and verified by BCR 192 and BCR 193 certified reference materials. Blood Venous blood specimen / Unknown Venipuncture / Unknown 04/29/2025 3:04 AM EDT 04/29/2025 3:19 AM EDT us Sy De La Fuente APRN, DENISE LAB REF LAB BLOOD AND FL UID ORD Final Result Performing Organization Address City/[facility] Co de Phone Number [facility] [address] [place] [address] * TSH (04/29/2025 3:04 AM EDT) Thyroid Stimulating Hormone, Plasma 1.58 0.40 - 4.20 uIU/mL 04/29/2025 3:55 AM EDT [facility] Blood Venous blood specimen / Unknown Venipuncture / Unknown 04/29/2025 3:04 AM EDT 04/29/2025 3:19 AM EDT us Sy De La Fuente APRN, DNP LAB BLOOD ORDERABLES Fin al Result Performing Organization Address City/[facility]/ZIP Co de Phone Number [facility] [address] [place] [address] * (ABNORMAL) Hemoglobin A1c (04/29/2025 3:04 AM EDT) Hemoglobin A1c 8.9(H) <5.7 % 04/29/2025 9:40 AM EDT [facility] Blood Venous blood specimen / Unknown Venipuncture / Unknown 04/29/2025 3:04 AM EDT 04/29/2025 3:19 AM EDT Narrative [facility] - 04/29/2025 9:40 AM EDT HA1C Interpretive Data: Diagnosis of Diabetes: Diabetic > or = 6.5% Pre-diabetic 5.7 to 6.4% Non-diabetic < or = 5.6% Glycemic Targets for Type I and Type II Diabetics: Non- Adults <7.0% Adults <6.0% Children and Adolescents <7.5% Source: [employer]. Standards of medical care in diabetes,2017. Diabetes Care.2017:40 (suppl 1):S1-S135. us Sy De La Fuente APRN, DNP LAB BLOOD ORDERABLES Fin al Result Performing Organization Address City/[facility] Co de Phone Number [facility] [address] [place] [address] * Phosphorus (04/29/2025 3:04 AM EDT) Phosphorus, Plasma 3.6 2.5 - 4.5 mg/dL 04/29/2025 3:55 AM EDT [facility] Blood Venous blood specimen / Unknown Venipuncture / Unknown 04/29/2025 3:04 AM EDT 04/29/2025 3:19 AM EDT us Sy De La Fuente APRN, DNP LAB BLOOD ORDERABLES Fin al Result Performing Organization Address City/[facility]/ZIP Co de Phone Number [facility] [address] [place] [address] * (ABNORMAL) Magnesium, Plasma (04/29/2025 3:04 AM EDT) Magnesium, Plasma 1.7(L) 1.9 - 2.4 mg/dL 04/29/2025 3:55 AM EDT [facility] Blood Venous blood specimen / Unknown Venipuncture / Unknown 04/29/2025 3:04 AM EDT 04/29/2025 3:19 AM EDT us Dirk A Episcopal PAYROLL SECRETARY, DNP LAB BLOOD ORDERABLES Fin al Result [facility] [address] [place] [address] * (ABNORMAL) Comprehensive metabolic panel (04/29/2025 3:04 AM EDT) Glucose, Plasma 219(H) 74 - 99 mg/dL 04/29/2025 3:55 AM EDT [facility] BUN, Plasma 9 7 - 21 mg/dL 04/29/2025 3:55 AM EDT [facility] Creatinine, Plasma 0.94 0.70 - 1.20 mg/dL 04/29/2025 3:55 AM EDT [facility] BUN/Creatinine Ratio 04/29/2025 3:55 AM EDT [facility] Sodium, Plasma 137 136 - 145 mmol/L 04/29/2025 3:55 AM EDT [facility] Potassium, Plasma 3.1(L) 3.6 - 4.9 mmol/L 04/29/2025 3:55 AM EDT [facility] Chloride, Plasma 92(L) 97 - 107 mmol/L 04/29/2025 3:55 AM EDT [facility] CO2, Plasma 38(H) 22 - 29 mmol/L 04/29/2025 3:55 AM EDT [facility] Anion Gap 7 6 - 16 mmol/L 04/29/2025 3:55 AM EDT [facility] Total Calcium, Plasma 8.6(L) 8.9 - 10.2 mg/dL 04/29/2025 3:55 AM EDT [facility] Total Protein 7.4 6.3 - 7.9 g/dL 04/29/2025 3:55 AM EDT [facility] Albumin, Plasma 3.3(L) 3.5 - 5.2 g/dL 04/29/2025 3:55 AM EDT [facility] AST, Plasma 18 10 - 50 U/L 04/29/2025 3:55 AM EDT [facility] ALT, Plasma 11 10 - 50 U/L 04/29/2025 3:55 AM EDT [facility] Alkaline Phosphatase, Plasma 55 40 - 115 U/L 04/29/2025 3:55 AM EDT [facility] Total Bilirubin, Plasma 0.8 0.2 - 1.1 mg/dL 04/29/2025 3:55 AM EDT [facility] eGFRcr 100.6 mL/min/1.7 3m*2 04/29/2025 3:55 AM EDT [facility] Comment:Reported eGFRcr in m L/min/1.73m2 is based the CKD-EPI 2020 equation that does not use a race coefficient. Blood Venous blood specimen / Unknown Venipuncture / Unknown 04/29/2025 3:04 AM EDT 04/29/2025 3:19 AM EDT us Sy De La Fuente PAYROLL SECRETARY, DNP LAB BLOOD ORDERABLES Fin al Result [facility] [address] [place] [address] * (ABNORMAL) CBC and Differential (04/29/2025 3:04 AM EDT) WBC Count 6.68 3.70 - 10.30 10*3/uL LAB HEMATOLOGY METHOD 04/29/2025 3:16 AM EDT [facility] RBC Count 4.21(L) 4.60 - 6.10 10*6/uL LAB HEMATOLOGY METHOD 04/29/2025 3:16 AM EDT [facility] HGB 9.4(L) 13.7 - 17.5 g/dL LAB HEMATOLOGY METHOD 04/29/2025 3:16 AM EDT [facility] HCT 32.0(L) 40.0 - 51.0 % LAB HEMATOLOGY METHOD 04/29/2025 3:16 AM EDT [facility] Platelet Count 249 155 - 369 10*3/uL LAB HEMATOLOGY METHOD 04/29/2025 3:16 AM EDT [facility] MCV 76(L) 79 - 98 fL LAB HEMATOLOGY METHOD 04/29/2025 3:16 AM EDT [facility] MCH 22.3(L) 26.0 - 32.0 pg LAB HEMATOLOGY METHOD 04/29/2025 3:16 AM EDT [facility] MCHC 29.4(L) 30.7 - 35.5 g/dL LAB HEMATOLOGY METHOD 04/29/2025 3:16 AM EDT [facility] RDW 19.6(H) 11.5 - 14.5 % LAB HEMATOLOGY METHOD 04/29/2025 3:16 AM EDT [facility] MPV 8.4(L) 8.8 - 12.5 fL LAB HEMATOLOGY METHOD 04/29/2025 3:16 AM EDT [facility] nRBC 0.0 <=0.0 per 100 WBCs LAB HEMATOLOGY METHOD 04/29/2025 3:16 AM EDT [facility] Differential Type Automated LAB HEMATOLOGY METHOD 04/29/2025 3:16 AM EDT [facility] Neutrophils % 75 % LAB HEMATOLOGY METHOD 04/29/2025 3:16 AM EDT [facility] Lymphocytes % 11 % LAB HEMATOLOGY METHOD 04/29/2025 3:16 AM EDT [facility] Monocytes % 9 % LAB HEMATOLOGY METHOD 04/29/2025 3:16 AM EDT [facility] Eosinophils % 4 % LAB HEMATOLOGY METHOD 04/29/2025 3:16 AM EDT [facility] Basophils % 0 % LAB HEMATOLOGY METHOD 04/29/2025 3:16 AM EDT [facility] Immature Granulocytes % 1 % LAB HEMATOLOGY METHOD 04/29/2025 3:16 AM EDT [facility] Neutrophils Absolute 5.01 1.60 - 6.10 10*3/uL LAB HEMATOLOGY METHOD 04/29/2025 3:16 AM EDT [facility] Lymphocytes Absolute 0.75(L) 1.20 - 3.90 10*3/uL LAB HEMATOLOGY METHOD 04/29/2025 3:16 AM EDT [facility] Monocytes Absolute 0.59 0.30 - 0.90 10*3/uL LAB HEMATOLOGY METHOD 04/29/2025 3:16 AM EDT [facility] Eosinophils Absolute 0.26 0.00 - 0.50 10*3/uL LAB HEMATOLOGY METHOD 04/29/2025 3:16 AM EDT [facility] Basophils Absolute 0.03 0.00 - 0.10 10*3/uL LAB HEMATOLOGY METHOD 04/29/2025 3:16 AM EDT [facility] Immature Granulocytes Absolute 0.04 0.00 - 0.06 10*3/uL LAB HEMATOLOGY METHOD 04/29/2025 3:16 AM EDT [facility] Blood Venous blood specimen / Unknown Venipuncture / Unknown 04/29/2025 3:04 AM EDT 04/29/2025 3:13 AM EDT Narrative [facility] - 04/29/2025 3:16 AM EDT Therapeutic decision making should be based on absolute values, rather than percentages. us Sy De La Fuente PAYROLL SECRETARY, DNP LAB BLOOD ORDERABLES Fin al Result Performing Organization Address City/[facility]/ZIP Co de Phone Number [facility] [address] [place] [address] * (ABNORMAL) POCT glucose meter (04/28/2025 9:06 [...] Comment 04/28/2025 9:08 PM EDT [facility] Dye Automation Operator ID Lamoure, Frankie 04/28/2025 9:08 PM EDT [facility] LAB Device ID [id number] 04/28/2025 9:08 PM EDT [facility] Specimen Type POC Capillary 04/28/2025 9:08 PM EDT [facility] Blood Capillary blood specimen / Unknown 04/28/2025 9:06 PM EDT 04/28/2025 9:08 PM EDT us Marjorie Myers MD LAB POINT OF CARE TE ST DOCKED DEVICE UNSOLICITED RESULTS Final Result [facility] [address] [place] [address] * (ABNORMAL) POCT glucose meter (04/28/2025 5:34 PM EDT) [facility] POCT Glucose 213(H) 74 - 99 mg/dL [...] 04/28/2025 5:38 PM EDT [facility] Dye Automation Operator ID Ailyn Finch 5:38 PM EDT [facility] Device ID [id number] 04/28/2025 5:38 PM EDT [facility] LAB Specimen Type POC Capillary 04/28/2025 5:38 PM EDT [facility] Blood Capillary blood specimen / Unknown 04/28/2025 5:34 PM EDT 04/28/2025 5:38 PM EDT Marjorie Myers MD LAB POINT OF CARE TE ST DOCKED DEVICE UNSOLICITED RESULTS Final Result Performing Organization Address City/State/[facility] Co de Phone Number [facility] [address] [place] [address] * (ABNORMAL) POCT glucose meter (04/28/2025 3:51 PM EDT) [facility] POCT Glucose 209(H) 74 - 99 mg/dL [...] 04/28/2025 3:54 PM EDT [facility] Dye Automation Operator ID Ailyn Finch 3:54 PM EDT [facility] Device ID [id number] 04/28/2025 3:54 PM EDT [facility] Specimen Type POC Capillary 04/28/2025 3:54 PM EDT [facility] Blood Capillary blood specimen / Unknown 04/28/2025 3:51 PM EDT 04/28/2025 3:54 PM EDT Marjorie Myers MD LAB POINT OF CARE TE ST DOCKED DEVICE UNSOLICITED RESULTS Final Result [facility] [address] [place] [id number] * VAS Ankle Brachial Index - GABBI [...] are demonstrated at the levels of the PROPOSAL MANAGER WRITER and DPA. Segmental pressures are within normal limits with a PROPOSAL MANAGER WRITER GABBI of 1.1 (172 mmHg) and a DPA GABBI of 1.0 (149 mmHg). Digit pressures are of 122 mmHg. Left: Multiphasic waveforms are demonstrated at the levels of the PROPOSAL MANAGER WRITER and DPA. Segmental pressures are within normal limits with a PROPOSAL MANAGER WRITER GABBI of 1.1 (164 mmHg) and a DPA GABBI of 1.0 (153 mmHg). Digit pressures are of 151 mmHg. Procedure Note Chris Schaefer MD - 04/28/2025 CLINICAL INDICATION: Diabetic foot ulcer TECHNIQUE: Non-invasive, continuous wave Doppler exam with segmental pressures andspectral analysis of the lower extremity was performed. COMPARISON: None. FINDINGS: Right: Multiphasic waveforms are demonstrated at the levels of the PROPOSAL MANAGER WRITER andDPA. Segmental pressures are within normal limits with a PROPOSAL MANAGER WRITER GABBI of 1.1(172 mmHg) and a DPA GABBI of 1.0 (149 mmHg). Digit pressures are of 122mmHg. Left: Multiphasic waveforms are demonstrated at the levels of the PROPOSAL MANAGER WRITER andDPA. Segmental pressures are within normal limits with a PROPOSAL MANAGER WRITER GABBI of 1.1(164 mmHg) and a DPA [...] on04/28/2025 4:14 PM Sy De La Fuente PAYROLL SECRETARY, DNP CV VASCULAR PROCEDURES F inal Result * Multi Drug Resistance Test (04/28/2025 1:44 PM EDT) Culture No Multi Drug Resistant Organisms Isolated 04/29/2025 2:32 PM EDT [facility] Swab (Nares and Saba Rectal) Non-blood Collection / Unknown 04/28/2025 1:44 PM EDT 04/28/2025 2:15 PM EDT Narrative [facility] - 04/29/2025 2:32 PM EDT This test was developed and its performance characteristics determined by the [facility]. Although the media is FDA-approved, it is not FDA-approved for all specimen types submitted. The FDA has determined that such clearance or approval is not necessary. This test is used for surveillance purposes. It should not be regarded as investigational or for research. The [facility] is certified under the Clinical Laboratory Improvement Amendments of 1988 (CLIA-88) as qualified to perform high complexity clinical laboratory testing. us Sy De La Fuente PAYROLL SECRETARY, DNP LAB MICROBIOLOGY - GENER AL ORDERABLES Final Result [facility] [address] [place] [address] * (ABNORMAL) POCT glucose meter (04/28/2025 12:52 [...] Comment 04/28/2025 12:56 PM EDT [facility] Dye Automation Operator ID Ailyn Finch 12:56 PM EDT [facility] LAB Device ID [id number] 04/28/2025 12:56 PM EDT [facility] Specimen Type POC Capillary 04/28/2025 12:56 PM EDT [facility] Blood Capillary blood specimen / Unknown 04/28/2025 12:52 PM EDT 04/28/2025 12:56 PM EDT Marjorie Myers MD LAB POINT OF CARE TE ST DOCKED DEVICE UNSOLICITED RESULTS Final Result [facility] [address] [place] [address] * (ABNORMAL) POCT glucose meter (04/28/2025 11:39 [...] Comment 04/28/2025 11:44 AM EDT [facility] Dye Automation Operator ID Ailyn Finch 11:44 AM EDT [facility] LAB Device ID [id number] 04/28/2025 11:44 AM EDT [facility] Specimen Type POC Capillary 04/28/2025 11:44 AM EDT [facility] Blood Capillary blood specimen / Unknown 04/28/2025 11:39 AM EDT 04/28/2025 11:44 AM EDT us Marjorie Myers MD LAB POINT OF CARE TE ST DOCKED DEVICE UNSOLICITED RESULTS Final Result Performing Organization Address City/[facility]/ZIP Co de Phone Number [facility] [address] [place] [address] * Lavender Top (04/28/2025 8:13 AM EDT) Extra Hold for add-ons 04/28/2025 11:01 AM EDT [facility] Comment:Auto resulted. Blood Venous blood specimen / Unknown 04/28/2025 8:13 AM EDT 04/28/2025 8:19 AM EDT us Marjorie Myers MD LAB BLOOD ORDERABLES Final Resul t [facility] [address] [place] [address] * Light Green Top (04/28/2025 8:13 AM EDT) Extra Hold for add-ons 04/28/2025 11:01 AM EDT [facility] Comment:Auto resulted. Blood Venous blood specimen / Unknown 04/28/2025 8:13 AM EDT 04/28/2025 8:19 AM EDT us Marjorie Myers MD LAB BLOOD ORDERABLES Final Resul t Performing Organization Address City/[facility] Co de Phone Number [facility] [address] [place] [address] * APTT (04/28/2025 8:13 AM EDT) aPTT 32 25 - 35 sec 04/28/2025 8:33 AM EDT [facility] Blood Venous blood specimen / Unknown Venipuncture / Unknown 04/28/2025 8:13 AM EDT 04/28/2025 8:18 AM EDT us Sy De La Fuente APRN, DENISE LAB BLOOD ORDERABLES Fin al Result Performing Organization Address [facility] Phone Number [facility] [address] [place] [address] * (ABNORMAL) PT/INR (04/28/2025 8:13 AM EDT) Prothrombin Time 17.5(H) 12.0 - 14.3 sec 04/28/2025 8:33 AM EDT [facility] INR 1.4(H) 0.9 - 1.1 04/28/2025 8:33 AM EDT [facility] Blood Venous blood specimen / Unknown Venipuncture / Unknown 04/28/2025 8:13 AM EDT 04/28/2025 8:18 AM EDT Narrative [facility] - 04/28/2025 8:33 AM EDT OPTIMAL INR RANGES FOR PATIENT ON ORAL ANTICOAGULANT THERAPY Prevention of venous thromboembolism INR 2.0 to 3.0 In patients with heart disease: Atrial fibrillation INR 2.0 to 3.0 Valvular heart disease INR 2.0 to 3.0 Tissue heart valves INR 2.0 to 3.0 Mechanical prosthetic valves INR 2.5 to 3.5 Prevention of recurrent MT INR 2.5 to 3.5 us Sy De La Fuente APRN, DNP LAB BLOOD ORDERABLES Fin al Result Performing Organization Address City/[facility]/ZIP Co de Phone Number [facility] [address] [place] [address] * ECG Adult (04/28/2025 7:20 AM EDT) EKG DIAGNOSIS CLASS Abnormal MUSE ECG Ventricular Rate 90 BPM MUSE ECG Atrial Rate 90 BPM MUSE ECG PA Interval 206 ms MUSE ECG QRSD Interval 146 ms MUSE ECG QT Interval 450 ms MUSE ECG QTC Interval 550 ms MUSE ECG P [place] 69 degrees MUSE ECG R [place] -32 degrees MUSE ECG T Wave [place] 35 degrees MUSE ECG Diagnosis Baseline Artifact MUSE ECG Diagnosis Poor data quality, interpretation may be adversely affected MUSE ECG Diagnosis Normal sinus rhythm MUSE ECG Diagnosis Left atrial enlargement MUSE ECG Diagnosis Left axis deviation MUSE ECG Diagnosis Right bundle branch block MUSE ECG Diagnosis Abnormal ECG MUSE ECG Diagnosis MUSE ECG Diagnosis Confirmed by Lasha Navarrete ([id number]) on 04/28/2025 5:22:51 PM MUSE ECG 04/28/2025 7:20 AM EDT 04/28/2025 5:22 PM EDT Sy De La Fuente PAYROLL SECRETARY, DNP ECG ORDERABLES Final Re sult MUSE ECG [...] 04/28/2025 7:21 AM EDT [facility] Dye Automation Operator ID Ailyn Finch 7:21 AM EDT [facility] Device ID [id number] 04/28/2025 7:21 AM EDT [facility] Specimen Type POC Capillary 04/28/2025 7:21 AM EDT [facility] Blood Capillary blood specimen / Unknown 04/28/2025 7:17 AM EDT 04/28/2025 7:21 AM EDT Greg Lee MD LAB POINT OF CARE TE ST DOCKED DEVICE UNSOLICITED RESULTS Final Result [facility] [address] [place] [address] * CT Foot Right w IV Contrast [...] TEST ORDERABLES Final Result Performing Organization Address City/[facility]/ZIP Co de Phone Number BLOOD BANK [address] [place] [address] * Blood Culture (Aerobic/Anaerobet Set) (04/27/2025 10:16 PM EDT) Culture No growth at day 5 05/03/2025 12:01 AM EDT [facility] Blood Venous blood specimen / Unknown Venipuncture / Unknown 04/27/2025 10:16 PM EDT 04/27/2025 10:53 PM EDT Jessa Law MD LAB MICROBIOLOGY - GENERAL ORDE ANGELICA Final Result Performing Organization Address City/[facility]/[place] [address] * Blood Culture (Aerobic/Anaerobet Set) (04/27/2025 10:16 PM EDT) Culture No growth at day 5 05/03/2025 12:01 AM EDT [facility] Blood Venous blood specimen / Unknown Venipuncture / Unknown 04/27/2025 10:16 PM EDT 04/27/2025 10:53 PM EDT Jessa Law MD LAB MICROBIOLOGY - GENERAL ORDE RABORION Final Result [facility] [address] [place] [address] * (ABNORMAL) Blood gas, venous (04/27/2025 10:16 PM EDT) pH, Venous 7.47(H) 7.32 - 7.43 LAB HEMATOLOGY METHOD 04/27/2025 10:21 PM EDT [facility] pCO2, Venous 50 40 - 55 mmHg LAB HEMATOLOGY METHOD 04/27/2025 10:21 PM EDT [facility] pO2, Venous 30 25 - 40 mmHg LAB HEMATOLOGY METHOD 04/27/2025 10:21 PM EDT [facility] SO2, Measured, Venous 52(L) 65 - 80 % LAB HEMATOLOGY METHOD 04/27/2025 10:21 PM EDT [facility] Base Excess, Venous 11.6(H) -2.0 - 3.0 mmol/L LAB HEMATOLOGY METHOD 04/27/2025 10:21 PM EDT [facility] Bicarbonate, Calculated, Venous 37(H) 22 - 26 mmol/L LAB HEMATOLOGY METHOD 04/27/2025 10:21 PM EDT [facility] Hematocrit, Whole Blood 30.1(L) 40.0 - 51.0 % LAB HEMATOLOGY METHOD 04/27/2025 10:21 PM EDT [facility] Sodium, Whole Blood 136 136 - 145 mmol/L LAB HEMATOLOGY METHOD 04/27/2025 10:21 PM EDT [facility] Potassium, Whole Blood 2.8(L) 3.6 - 4.9 mmol/L LAB HEMATOLOGY METHOD 04/27/2025 10:21 PM EDT [facility] Chloride, Whole Blood 88(L) 97 - 107 mmol/L LAB HEMATOLOGY METHOD 04/27/2025 10:21 PM EDT [facility] Glucose, Whole Blood 131(H) 74 - 99 mg/dL LAB HEMATOLOGY METHOD 04/27/2025 10:21 PM EDT [facility] Lactate, Venous, Whole Blood 2.0 0.5 - 2.2 mmol/L LAB HEMATOLOGY METHOD 04/27/2025 10:21 PM EDT [facility] Ionized Calcium, Whole Blood 4.2(L) 4.6 - 5.1 mg/dL LAB HEMATOLOGY METHOD 04/27/2025 10:21 PM EDT [facility] Blood Venous blood specimen / Unknown Venipuncture / Unknown 04/27/2025 10:16 PM EDT 04/27/2025 10:20 PM EDT Jessa Law MD LAB BLOOD ORDERABLES Final Resu lt Performing Organization Address [facility]/ZIP Co de Phone Number [facility] [address] [place] [address] * Creatine Kinase, Total, Plasma (04/27/2025 9:37 PM EDT) Creatine Kinase, Plasma 71 49 - 320 U/L 04/28/2025 8:36 AM EDT [facility] Blood Venous blood specimen / Unknown Venipuncture / Unknown 04/27/2025 9:37 PM EDT 04/27/2025 9:40 PM EDT Sy De La Fuente PAYROLL SECRETARY, DNP LAB BLOOD ORDERABLES Fin al Result Performing Organization Address City/[facility] Co de Phone Number [facility] [address] [place] [address] * (ABNORMAL) Procalcitonin (04/27/2025 9:37 PM EDT) Procalcitonin, Plasma 0.11(H) <0.09 ng/mL 04/28/2025 8:36 AM EDT [facility] Blood Venous blood specimen / Unknown Venipuncture / Unknown 04/27/2025 9:37 PM EDT 04/27/2025 9:40 PM EDT Narrative [facility] - 04/28/2025 8:36 AM EDT [...] predict 28 day mortality risk. Please consult www.abcdde-asy-caerousdwu.com for more information. Test performed at [facility]. Sy De La Fuente APRN, DNP LAB BLOOD ORDERABLES Fin al Result Performing Organization Address City/[facility]/[place] [address] * (ABNORMAL) Sed rate, automated (04/27/2025 9:37 PM EDT) Sedimentation Rate >111(H) <15 mm/hr 2024 11:10 PM EDT [facility] Blood Venous blood specimen / Unknown Venipuncture / Unknown 04/27/2025 9:37 PM EDT 04/27/2025 9:40 PM EDT Jessa Law MD LAB BLOOD ORDERABLES Final Resu lt Performing Organization Address [facility] [place] [address] * (ABNORMAL) Magnesium (04/27/2025 9:37 PM EDT) Magnesium, Plasma 1.2(L) 1.9 - 2.4 mg/dL 04/27/2025 10:11 PM EDT [facility] Blood Venous blood specimen / Unknown Venipuncture / Unknown 04/27/2025 9:37 PM EDT 04/27/2025 9:40 PM EDT Jessa Law MD LAB BLOOD ORDERABLES Final Resu lt Performing Organization Address [facility] [place] [address] * Beta-Hydroxybutyric Acid (04/27/2025 9:37 PM EDT) Beta-Hydroxybut yric Acid, Plasma 0.23 <=0.27 mmol/L 04/27/2025 10:56 PM EDT [facility] Blood Venous blood specimen / Unknown Venipuncture / Unknown 04/27/2025 9:37 PM EDT 04/27/2025 9:40 PM EDT us Jessa Law MD LAB BLOOD ORDERABLES Final Resu lt Performing Organization Address City/[facility]/ZIP Co de Phone Number [facility] [address] [place] [address] * ED HIV 1/2 Antibody/Antigen Screen w/Reflex to HIV 1/2 Differentiation (04/27/2025 9:37 PM EDT) HIV 1 & 2 Antibody/Antigen Screen Non Reactive Non Reactive 04/27/2025 10:41 PM EDT [facility] Comment:Screening for HIV 1 & 2 antibodies, and P24 antigen is NONREACTIVE. No confirmatory testing is required. Blood Venous blood specimen / Unknown Venipuncture / Unknown 04/27/2025 9:37 PM EDT 04/27/2025 10:00 PM EDT us Madhu Ritchie MD LAB BLOOD ORDERABLES Final Res ult Performing Organization Address [facility] Co de Phone Number [facility] [address] [place] [address] * Hepatitis C Antibody - ED (04/27/2025 9:37 PM EDT) Hepatitis C Antibody Negative Negative 04/27/2025 10:41 PM EDT [facility] Blood Venous blood specimen / Unknown Venipuncture / Unknown 04/27/2025 9:37 PM EDT 04/27/2025 10:00 PM EDT us Madhu Ritchie MD LAB BLOOD ORDERABLES Final Res ult Performing Organization Address [facility]/ZIP Co de Phone Number [facility] [address] [place] [address] * (ABNORMAL) C-reactive protein (04/27/2025 9:37 PM EDT) Pathologist [facility] CRP, Plasma 82.6(H) <=8.0 mg/L 04/27/2025 10:03 PM EDT [facility] Blood Venous blood specimen / Unknown Venipuncture / Unknown 04/27/2025 9:37 PM EDT 04/27/2025 9:40 PM EDT Narrative [facility] - 04/27/2025 10:03 PM EDT This CRP test is appropriate for assessment of infection, systemic inflammation and/or tissue injury. To assess cardiovascular disease risk order high sensitivity CRP (CRPH). us Madhu Ritchie MD LAB BLOOD ORDERABLES Final Res ult [facility] [address] [place] [address] * (ABNORMAL) CBC w/diff (04/27/2025 9:37 PM EDT) WBC Count 12.00(H) 3.70 - 10.30 10*3/uL LAB HEMATOLOGY METHOD 04/27/2025 9:43 PM EDT [facility] RBC Count 4.48(L) 4.60 - 6.10 10*6/uL LAB HEMATOLOGY METHOD 04/27/2025 9:43 PM EDT [facility] HGB 10.4(L) 13.7 - 17.5 g/dL LAB HEMATOLOGY METHOD 04/27/2025 9:43 PM EDT [facility] HCT 33.3(L) 40.0 - 51.0 % LAB HEMATOLOGY METHOD 04/27/2025 9:43 PM EDT [facility] Platelet Count 282 155 - 369 10*3/uL LAB HEMATOLOGY METHOD 04/27/2025 9:43 PM EDT [facility] MCV 74(L) 79 - 98 fL LAB HEMATOLOGY METHOD 04/27/2025 9:43 PM EDT [facility] MCH 23.2(L) 26.0 - 32.0 pg LAB HEMATOLOGY METHOD 04/27/2025 9:43 PM EDT [facility] MCHC 31.2 30.7 - 35.5 g/dL LAB HEMATOLOGY METHOD 04/27/2025 9:43 PM EDT [facility] RDW 19.4(H) 11.5 - 14.5 % LAB HEMATOLOGY METHOD 04/27/2025 9:43 PM EDT [facility] MPV 8.3(L) 8.8 - 12.5 fL LAB HEMATOLOGY METHOD 04/27/2025 9:43 PM EDT [facility] nRBC 0.0 <=0.0 per 100 WBCs LAB HEMATOLOGY METHOD 04/27/2025 9:43 PM EDT [facility] Differential Type Automated LAB HEMATOLOGY METHOD 04/27/2025 9:43 PM EDT [facility] Neutrophils % 82 % LAB HEMATOLOGY METHOD 04/27/2025 9:43 PM EDT [facility] Lymphocytes % 9 % LAB HEMATOLOGY METHOD 04/27/2025 9:43 PM EDT [facility] Monocytes % 7 % LAB HEMATOLOGY METHOD 04/27/2025 9:43 PM EDT [facility] Eosinophils % 2 % LAB HEMATOLOGY METHOD 04/27/2025 9:43 PM EDT [facility] Basophils % 0 % LAB HEMATOLOGY METHOD 04/27/2025 9:43 PM EDT [facility] Immature Granulocytes % 0 % LAB HEMATOLOGY METHOD 04/27/2025 9:43 PM EDT [facility] Neutrophils Absolute 9.73(H) 1.60 - 6.10 10*3/uL LAB HEMATOLOGY METHOD 04/27/2025 9:43 PM EDT [facility] Lymphocytes Absolute 1.11(L) 1.20 - 3.90 10*3/uL LAB HEMATOLOGY METHOD 04/27/2025 9:43 PM EDT [facility] Monocytes Absolute 0.80 0.30 - 0.90 10*3/uL LAB HEMATOLOGY METHOD 04/27/2025 9:43 PM EDT [facility] Eosinophils Absolute 0.29 0.00 - 0.50 10*3/uL LAB HEMATOLOGY METHOD 04/27/2025 9:43 PM EDT [facility] Basophils Absolute 0.03 0.00 - 0.10 10*3/uL LAB HEMATOLOGY METHOD 04/27/2025 9:43 PM EDT [facility] Immature Granulocytes Absolute 0.04 0.00 - 0.06 10*3/uL LAB HEMATOLOGY METHOD 04/27/2025 9:43 PM EDT [facility] Blood Venous blood specimen / Unknown Venipuncture / Unknown 04/27/2025 9:37 PM EDT 04/27/2025 9:40 PM EDT Narrative [facility] - 04/27/2025 9:43 PM EDT Therapeutic decision making should be based on absolute values, rather than percentages. us Madhu Ritchie MD LAB BLOOD ORDERABLES Final Res ult [facility] [address] [place] [address] * (ABNORMAL) BMP (04/27/2025 9:37 PM EDT) Glucose, Plasma 135(H) 74 - 99 mg/dL 04/27/2025 10:03 PM EDT [facility] BUN, Plasma 8 7 - 21 mg/dL 04/27/2025 10:03 PM EDT [facility] Creatinine, Plasma 0.84 0.70 - 1.20 mg/dL 04/27/2025 10:03 PM EDT [facility] BUN/Creatinine Ratio 10 04/27/2025 10:03 PM EDT [facility] Sodium, Plasma 135(L) 136 - 145 mmol/L 04/27/2025 10:03 PM EDT [facility] Potassium, Plasma 3.3(L) 3.6 - 4.9 mmol/L 04/27/2025 10:03 PM EDT [facility] Chloride, Plasma 90(L) 97 - 107 mmol/L 04/27/2025 10:03 PM EDT [facility] CO2, Plasma 29 22 - 29 mmol/L 04/27/2025 10:03 PM EDT [facility] Anion Gap 16 6 - 16 mmol/L 04/27/2025 10:03 PM EDT [facility] Total Calcium, Plasma 9.0 8.9 - 10.2 mg/dL 04/27/2025 10:03 PM EDT [facility] eGFRcr 108.2 mL/min/1.7 3m*2 04/27/2025 10:03 PM EDT [facility] Comment:Reported eGFRcr in m L/min/1.73m2 is based the CKD-EPI 2020 equation that does not use a race coefficient. Blood Venous blood specimen / Unknown Venipuncture / Unknown 04/27/2025 9:37 PM EDT 04/27/2025 9:40 PM EDT us Madhu Ritchie MD LAB BLOOD ORDERABLES Final Res ult [facility] [address] [place] [address] documented in this encounter Visit Diagnoses Diagnosis Other chronic osteomyelitis of right foot (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) documented in this encounter Admitting Diagnoses Diagnosis [...] Until [place] 05/18/25 at 1348, Routine, anxiety Given 04/30/2025 8:31 [...] 5:00 PM EST 20 mg sodium chloride ([place]) 0.65 % nasal spray 1 spray 1 spray, Each Nostril, Every 2 hour PRN, Starting on Thu05/09/25 at 0821, Until [facility] 05/18/25 at 1348, Routine, congestion sodium chloride [...] Ivan Slaughter RN) 2003 (Given - Provider: Ivna Slaughter RN) bisoprolol (Zebeta) tablet 10 mg [...] Ivan Slaughter RN) 900 (Given - Provider: eDepthi Herman, LOLA)170 (Given - Provider: Deepthi Herman, LOLA)2003 (Given - Provider: Ivan Slaughter RN) 0906 (Given - Provider: Kylee Gonzalez RN) cariprazine [...] Herman RN)1626 (Given - Provider: Deepthi Herman RN)2000 (Given - Provider: Ivan Slaughter RN) 0900 [...] Deepthi Herman, RN)1755 (Given - Provider: Deepthi Herman, RN) 0907 (Given - Provider: Deepthi Herman [...] - Provider: Kylee Gonzalez, LOLA - Comment: [facility] [place]) insulin regular (HumuLIN R U-500) 500 UNIT/ML [...] Herman, LOLA) 0909 (Given - Provider: Kylee Gonzalez, LOLA - Comment: [facility]) insulin regular (HumuLIN R U-500) 500 UNIT/ML CONCENTRATED injection 80 Units (CANCELED) 80 Units, Subcutaneous, Daily before lunch, Administer using a U-500 syringe. (GRE[employer]YRINGE). If patient is NPO, contact endocrine prior to administering dose. Note High CONCENTRATION: 500 units/mL, First dose (after last modification) on Thu05/14/25 at 1230 1330 (Given - Provider: Deepthi Herman, LOLA) insulin [...] RN)2000 (Given - Provider: Ivan Slaughter RN) 0905 (Given - Provider: Deepthi Herman RN)2003 (Given [...] Herman RN)1424 (Given - Provider: Deepthi Herman, LOLA)2228 (Given - Provider: Ivan Slaughter RN) 0907 (Given - Provider: Kylee Gonzalez RN) sodium chloride ([place]) 0.65 % nasal spray 1 spray 1 [...] documented as of this encounter Care Teams Mold Sheet Cleaner Relationship Specialty Start Date End Date KlabeMalcolm camejo APRN [address] [place] [address] [place] [id number] PCP - General 09/21/23 documented as of this encounter
[2025-05-20] VITALS (8 sets, daily range): BP systolic 101–161; BP diastolic 67–88; PULSE 80–90; RESP 18–22; TEMP 36.6–37; O2SAT 96–99; BMI 71.8; BMI 72.6
--- OUTSIDE RECORDS SUMMARY | 2025-05-20 17:59 | XMS_ITS ---
Care Plan - [facility] Created on: May 20, 2025 Gonzalo Russell : 1975 Sex: Male Author Organization [facility] Address [address] [place] [address] Phone Care Team Providers Care Tribunal Member Name Role Phone Allen RUSH, Emanuel Maurice Unavailable [phone] TRELL BECKWITH MD Unavailable [phone] ZI SUE DPM Unavailable [phone] Petty Frost PA-C Primary Care Provider [phone]
--- OUTSIDE RECORDS SUMMARY | 2025-05-20 18:00 | XMS_ITS | Referral Summary ---
Author Organization [employer] ([place], [place], [place], [place], [place]) Address [address] [place] [address] Care Team Providers Care Dye Machine Operator Name Role Phone Malcolm Hayward APRN Primary Care Provider [phone] Allergies No known active allergies Medications atorvastatin [...] A B BLUE CROSS/BLUE SHIELD Care Teams Dye Machine Operator Relationship Specialty Start Date End Date Malcolm Hayward, ADALGISA [address] [place] [address] PCP - General Nurse Practitioner 12/20/24
--- OUTSIDE RECORDS SUMMARY | 2025-05-20 18:00 | XMS_ITS | Clinical Summary ---
Author Organization [employer] ([place], [place], [place], [place], [place]) Address [address] [place] [address] Care Team Providers Care Track Inspecting Supervisor Name Role Phone Malcolm Hayward APRN Primary Care Provider Allergies No known active [...] Hemoglobin A1C 12/20/2024 COVID-19 VACCINE (3 - season) 2025, 01/25/2021 Influenza Vaccine (#1) 2025 Pneumococcal Vaccine: 0-49 Y ears (3 of 3 - PCV20 or PCV21) 2027 04/26/2020, 12/24/2016 Insurance MEDICARE PART A B /[facility] Care Teams Track Inspecting Supervisor Relationship Specialty Start Date End Date Malcolm Hayward APRN [address] [id number] PCP - General Nurse Practitioner 12/20/24
--- OUTSIDE RECORDS SUMMARY | 2025-05-20 18:00 | XMS_ITS | Clinical Summary ---
Author Organization [facility] , [facility] Address [address] [place] [address] Phone Care Team Providers Care Manager Community Outreach Name Role Phone [place] RUSH, Emanuel Maurice Unavailable [phone] TRELL BECKWITH MD Unavailable [phone] PAWCARL DPMZI Unavailable [phone] Petty Frost PA-C Primary Care Provider +1 [...] margarito Last Documented On 9 11:03AM ; [facility], [facility] Past Visits Onset Date Resolved Date Provider Condition Status Bone Pain in the Heel 06/27/2014 Randy Booth DPM Active Last Documented On 4 1:06PM ; [facility], [facility] Plan of Treatment - Weight loss diet - Last Documented On 11/09/2019 12:13PM ; [facility], [facility] Patient was seen by myself Chintan oFote PA-C. Patient will follow up right now [...] Documented On 11/09/2019 12:13PM ; [facility], [facility] Instructions to patient Instructions for patient See PCP for BP and Weight Last Documented On 9 4:12PM ; [facility] Lose weight Last Documented On 9 11:03AM ; [facility] Assessments Includes: Assessments from this encounter Findings Low back pain lumbar DDD - Last Documented On 11/09/2019 12:13PM ; [facility] Instructions Includes: Instructions from this encounter Instructions to patient Instructions for patient See PCP for BP and Weight Last Documented On 9 4:12PM ; [facility] Lose weight Last Documented On 9 11:03AM ; [facility] Medical Equipment - Implanted Devices Includes: Current Devices No Medical Equipment Recorded Medications Includes: Medications discussed during this encounter and other current Medications Discontinued / Stopped on this date on 06/27/2014 Lexapro 10 MG OR TABS Provider: Diagnosis: Last Documented On 9 4:08PM By Daniel Mo ; [facility], [facility] Lisinopril 10 MG OR TABS Provider: Diagnosis: Last Documented On 9 4:08PM By Daniel Mo ; [facility], [facility] metFORMIN HCl 500 MG TABS Provider: Diagnosis: Last Documented On 9 4:08PM By Daniel Mo ; [facility], [facility] Dexilant 30 MG OR CPDR Provider: Diagnosis: Last Documented On 9 4:08PM By Daniel Mo ; [facility], [facility] Current Medications (continue as prescribed) Xarelto 20 MG Oral Tablet 11/16/2021 Provider: Diagnosis: Last Documented On 2 3:17PM By Estrellita Vázquez ; [facility], [facility] Metoclopramide HCl 10 MG Oral Tablet 04/21/2019 Prov ider: Chintan Aguayo MD Diagnosis: Last Documented On 9 4:08PM By Daniel Mo ; [facility], [facility] Atorvastatin Calcium 40 MG Oral Tablet 04/21/2019 Pr ovider: Diagnosis: Last Documented On 9 4:08PM By Daniel Mo ; [facility], [facility] Furosemide 40 MG Oral Tablet 04/21/2019 Provider: Diagnosis: Last Documented On 9 4:09PM By Daniel Mo ; [facility], [facility] Potassium Chloride 20 MEQ Oral Packet 04/21/2019 Pro vider: Diagnosis: Last Documented On 9 4:09PM By Daniel Mo ; [facility], [facility] Omeprazole 40 MG Oral Capsul e Delayed Release 04/21/2019 Provider: Chintan Aguayo MD Diagnosis: Last Documented On 9 4:10PM By Daniel Mo ; [facility], [facility] ARIPiprazole 5 MG Oral Tablet 04/14/2019 Provider: Diagnosis: Last Documented On 9 4:10PM By Daniel Mo ; [facility], [facility] Venlafaxine HCl ER 150 MG Or al Capsule Extended Release 24 Hour 03/31/2019 Provider: Diagnosis: Last Documented On 9 4:10PM By Daniel Mo ; [facility], [facility] metFORMIN HCl 1000 MG Oral Tablet 03/10/2019 Provide r: Chintan Aguayo MD Diagnosis: Last Documented On 9 4:10PM By Daniel Mo ; [facility], [facility] Lisinopril-hydroCHLOROthiazi de 20-25 MG Oral Tablet 03/04/2019 Provider: TRELL BECKWITH MD Diagnosis: Last Documented On 9 4:10PM By Daniel Mo ; [facility], [facility] Past Medications on file Diclofenac Potassium 50 MG O R TABS 06/27/2014 - 07/27/2014 Provider: Randy DUMONT Diagnosis: be Last Documented On 4 1:34PM By Isa Avendano ; [facility], [facility] Medications Administered Includes: Administered Medications [...] has had injections with pain management in [facility] as well as here in [place] he says the one in [place] did not do much for him but he has some sort of injection here in [place] which did help. he is not complaining of any numbness or tingling about her bladder problems Social History Description Last Updated Tobacco use 06/27/2014 Last Documented On 9 11:03AM ; [facility] Smoking status : Current everyday smoker 06/27/2014 Last Documented On 9 11:03AM ; [facility] Alcohol use 06/27/2014 Last Documented On 9 11:03AM ; [facility] Current smoker 06/27/2014 Last Documented On 9 11:03AM ; [facility] No caffeine use 06/27/2014 Last Documented On 9 11:03AM ; [facility] No recent change in diet 06/27/2014 Last Documented On 9 11:03AM ; [facility] Not exercising regularly 06/27/2014 Last Documented On 9 11:03AM ; [facility] Not using drugs 06/27/2014 Last Documented On 9 11:03AM ; [facility] Procedures and Surgical History Includes: Procedures from this encounter Procedures Code Diagnosis Performing Provider Service Location Service Date pharmacologic therapy for cessation of tobacco use 4001F Last Documented On 9 11:03AM ; [facility], [facility] Clinical summary provided to patient Last Documented On 9 4:12PM ; [facility] Medical History Includes: Medical History addressed during this encounter Description Last Updated Intermittent hypertension 04/22/2019 Last Documented On 0 12:13PM ; [facility] History of depression 04/22/2019 Last Documented On 0 12:13PM ; [facility] gall bladder, wisdom teeth 06/27/2014 Last Documented On 9 11:03AM ; [facility] Arthritic joint problems 06/27/2014 Last Documented On 9 11:03AM ; [facility] History of diabetes mellitus 06/27/2014 Last Documented On 9 11:03AM ; [facility] History of gastric ulcer 06/27/2014 Last Documented On 9 11:03AM ; [facility] Family History Includes: Family History addressed during this encounter Description Last Updated Family history of hypertension 9 Last Documented On 0 12:13PM ; [facility] non-contributory 06/27/2014 Last Documented On 9 11:03AM ; [facility], [facility] Review of Systems Includes: Review of Systems [...] Time Diagnosis Physician Specified Emanuel Villa MD [facility] 04/22/20 10:58AM 12:17PM Insurance Includes: Active Insurance Policies Plan Name Member ID Group # Subscriber Relationship Effect margarito Dates 1 - [facility] [id number] Gonzalo Russell Self 03/13/2022 - Unknown Clinical Notes Includes: Clinical Notes from this encounter No Clinical Notes Recorded
--- OUTSIDE RECORDS SUMMARY | 2025-05-20 18:01 | XMS_ITS | Encounter Summary ---
Author Organization Healthcare Address [address] [id number] Care Team Providers Care Seam Sewer Name Role Phone Malcolm Hayward FRONT LINE LEADER Primary Care Provider [phone] Reason for Visit * Reason Comments Med Refill Encounter Details Date Type Department Care Team (Late st Contact Info) Description 12/31/2023 Refill [facility] [address] [place] [address] Earline Loaiza, FRONT LINE LEADER [address] [facility] [address] [place] [address] Type 2 diabetes mellitus (CMS/HCC) [...] Description 05/30/2025 2:40 PM EST Office Visit [facility] [address] 5[address] [place] [address] Sheila Marcano, BLAS [address] [address] [place] [address] 06/14/2025 1:40 PM EST Office Visit [facility] [address] [place] [address] Divine Archer APRN [address] [facility] [address] [place] [address] 06/22/2025 1:40 PM EST Office Visit [facility] [address] [place] [address] Mary Vicente MD [address] [facility] [address] [place] [address] documented as of this encounter Visit Diagnoses [...] documented as of this encounter Care Teams Seam Sewer Relationship Specialty Start Date End Date Malcolm Hayward, FRONT LINE LEADER [address] [place] [id number] PCP - General 09/21/23 documented as of this encounter
--- OUTSIDE RECORDS SUMMARY | 2025-05-20 18:01 | XMS_ITS | Encounter Summary ---
Author Organization [facility] Address [address] [id number] Care Team Providers Care Stiff Neck Loader Name Role Phone Malcolm Hayward APRN Primary Care Provider [phone] Encounter Details Date Type Department Care Team (Latest Contact Info) Description 04/28/2025 Travel Social History Tobacco Use Types Packs/Day [...] any time in the past 12 m [facility], were you homeless or living in a halfway (including now)? No 04/28/2025 [facility] Utilities Answer Date Recorded In [...] Description 05/30/2025 2:40 PM EST Office Visit [facility] [address] [facility] 5th Floor [address] [place] [address] Sheila Marcano, PA [address] [facility] [address] [place] [address] 06/14/2025 1:40 PM EST Office Visit [facility] [address] [place] [address] Divine Archer, [employer] INST[employer]ER AND REPAIRER [address] [place] [address] 06/22/2025 1:40 PM EST Office Visit [facility] [address] [facility] 5th Floor [address] [place] [address] Mary Vicente MD [address] [facility] [address] [place] [address] documented as of this encounter [...] documented as of this encounter Care Teams Stiff Neck Loader Relationship Specialty Start Date End Date Malcolm Hayward APRN [address] [place] [id number] PCP - General 09/21/23 documented as of this encounter
--- OUTSIDE RECORDS SUMMARY | 2025-05-20 18:02 | XMS_ITS ---
Author Organization [facility] Care Team Providers Care Chief Revenue Officer Name Role Phone Isiah Armando Unavailable Unavailable Raffy Youngblood Unavailable Unavailable Darcy Clayton Unavailable Unavailable Radha, Stephanie Unavailable Unavailable Howard, Omar Unavailable Unavailable Allergies and adverse reactions Code CodeSystem Substance Reaction Severity StartDate Concern Status Vancomycin Moderate Unknown active Care Team Name Role Address Phone Organization Dates Isiah Armando PCP [address], [place], [address], [facility] (Office): : : [facility] 05/18/2025 - 05/20/2025 Raffy Youngblood [address] [place], [address], [facility] (Office): : : [facility] 05/18/2025 - 05/20/2025 Darcy Clayton [facility] (Office): [facility] 05/18/2025 - 05/20/2025 Stephanie Garcia [address] [place] [address], [place], [address] [place] [address] (Office): : : [facility] 05/18/2025 - 05/20/2025 Omar Howard [address] [place] [address], [facility], [facility] (Office): : : [facility] 05/18/2025 - 05/20/2025 Encounters Encounter Type Code Code System Description Performer Discharge Disposition Service Delivery Location Date Ambulatory Encounter CPT Code = [id number] Chronic obstructive pulmonary disease [facility] Address: [address] [place] [address], [address] [place] [address]. 05/18 Ambulatory Encounter CPT Code = [id number] Foot ulcer due to type 2 diabetes mellitus [facility] Address: [address] [place] [address], [address] [place] [address]. 05/18 Ambulatory Encounter CPT Code = [id number] Morbid obesity [facility] Address: [address] [place] [address], [address] [place] [address]. 05/18 Ambulatory Encounter CPT Code = [id number] Chronic ulcer of foot [facility] Address: [address] [place] [address], [address] [place] [address]. 05/18 Ambulatory Encounter CPT Code = [id number] Congestive heart failure [facility] Address: [address] [place] [address], [address] [place] [address]. 05/18 Ambulatory Encounter CPT Code = [id number] Chronic atrial fibrillation [facility] Address: [address] [place] [address]. 05/18 Ambulatory Encounter CPT Code = [id number] Essential hypertension [facility] Address: [address] 05/18 Ambulatory Encounter CPT Code = [id number] Hyperlipidemia [facility] Address: [address] [place] [address]. 05/18 Ambulatory Encounter CPT Code = [id number] Obstructive sleep apnea syndrome [facility] Address: [address] [place] [address]. 05/18 Ambulatory Encounter CPT Code = [id number] Benign prostatic hyperplasia with outflow obstruction [facility] Address: [address] [place] [address]. 05/18 Ambulatory Encounter CPT Code = [address] Urinary tract obstruction [facility] Address: [address] [place] [address]. 05/18 Ambulatory Encounter CPT Code = [id number] Gastroesophageal reflux disease without esophagitis [facility] Address: [address] [place] [address]. 05/18 Ambulatory Encounter CPT Code = [id number] Generalized anxiety disorder [facility] Address: [address] [place] [address]. 05/18 Ambulatory Encounter CPT Code = [id number] Depressive disorder [facility] Address: [address] [place] [address]. 05/18 Goals Section Goals Description Status Target Date Advanced directives will be provided as per resident wish and care coordinated as indicated Active 08/16/2025 Gonzalo will express satisfacti on with type of activities and level of activity involvement by attending activities of choice Active 08/16/2025 Resident will be able to discharge home without complications Active 08/16/2025 Resident will remain free from signs and symptom s of Covid-19. Active 08/16/2025 Functional Status Code Name Recorded Time Value Entered By Bathing 05/20/2025 Not assessed [email or web address] Chair/hum-ew-fdvha transfer 05/20/2025 Not assessed ccarnes1 Does the resident use a wheelchair and/or scooter? 05/20/2025 No (qualifier value) ccarnes1 Eating 05/20/2025 Setup or clean-up assistance [email or web address] Indicate the type of wheelchair or scooter used 05/20/2025 Manual wheelchair (physical object) [email or web address] Lower body dressing 05/20/2025 Dependent ccarnes1 Lying to sitting on side of bed 05/20/2025 Not assessed ccarnes1 Oral hygiene 05/20/2025 Setup or clean-up assistance ccarnes1 Personal hygiene 05/20/2025 Setup or clean-up assist ance [email or web address] Putting on/taking off footwear 05/20/2025 Dependent ccarnes1 Roll left and right 05/20/2025 Substantial/maximal a ssistance ccarnes1 Sit to lying 05/20/2025 Not assessed [email or web address] Sit to stand 05/20/2025 Not assessed ccarnes1 Toilet transfer 05/20/2025 Not assessed ccarnes1 Toileting hygiene 05/20/2025 Dependent ccarnes1 Upper body dressing 05/20/2025 Dependent ccarnes1 Walk 10 feet 05/20/2025 Not assessed ccarnes1 Walk 150 feet 05/20/2025 Not assessed ccarnes1 Walk 50 feet 05/20/2025 Not assessed ccarnes1 Wheel 150 feet 05/20/2025 Independent [email or web address] Wheel 50 feet with two turns 05/20/2025 Independent [email or web address] Medications Section Medication Name Status Code CodeSystem Dose Route Frequency Admin Type Sig Text Start Date End Date Indication Gabapentin Oral Tablet 600 MG active 22643 3 RXNORM 1 table t Oral three times a day Routin e Give 1 table t by mouth three times a day for neuro olga 2024 - neuropathy dilTIAZem HCl ER Oral Tablet Extended Release 24 Hour 120 MG aborted 93763 4 RXNORM 1 table t Oral one time a day Routin e Give 1 table t by mouth one time a day for HTN 05/19 HTN Bumetanide Oral Tablet 2 MG active 60568 9 RXNORM 2 table t Oral three times a day Routin e Give 2 table t by mouth three times a day for Edema 2024 - Edema Pantoprazol e Sodium 40 MG Tablet delayed release active 88522 0 RXNORM 1 table t Oral two times a day Routin e Give 1 table t by mouth two times a day for GERD 2024 - GERD Albuterol Sulfate HFA Inhalation Aerosol Solution 108 (90 Base) MCG/ACT active 24911 2 RXNORM 2 puff Inhala tion as needed PRN 2 puff inhal e orall y every 4 hours as neede d for SOA or wheez ing rinse mouth after each use 2024 - SOA or wheezing Atorvastati n Calcium Tablet 40 MG active 58774 1 RXNORM 1 table t Oral one time a day Routin e Give 1 table t by mouth one time a day for hyper lipid emia 2024 - hyperlipide jesus Bisoprolol Fumarate Oral Tablet 5 MG active 48229 5 RXNORM 1 table t Oral two times a day Routin e Give 1 table t by mouth two times a day for Hyper tensi on 2024 - Hypertensio n Omeprazole Oral Capsule Delayed Release aborted 40 mg Oral two times a day Routin e Give 40 mg by mouth two times a day for GERD 05/18 GERD Cariprazine HCl Oral Capsule 3 MG active 27060 68 RXNORM 1 capsu le Oral one time a day Routin e Give 1 capsu le by mouth one time a day for mood 2024 - mood Ferrous Sulfate Oral Tablet Delayed Release 324 (65 Fe) MG active 15233 4 RXNORM 1 table t Oral one time a day Routin e Give 1 table t by mouth one time a day every other day for suppl ement 2024 - supplement HYDROcodone -Acetaminop hen Oral Tablet 10-325 MG aborted 83227 9 RXNORM 1 table t Oral as needed PRN Give 1 table t by mouth every 6 hours as neede d for pain 05/18 pain Naloxone HCl Nasal Liquid 4 MG/0.1ML active 79636 59 RXNORM 1 spray in nostri l as needed PRN 1 spray in nostr il as neede d for no/sl ow breat will or canno t wake after opioi d use 2024 - no/slow breathing or cannot wake after opioid use HumuLIN R U-500 (CONCENTRAT ED) Subcutaneou s Solution 500 UNIT/ML active 20997 9 RXNORM 90 unit Subcut aneous one time a day Routin e Injec t 90 unit subcu taneo usly one time a day for DM Give befor e lunch AND Injec t 250 unit subcu taneo usly two times a day for DM Give befor e break fast and dinne r 2024 - DM [address]354 9 RXNORM 250 unit Subcut aneous two times a day Routin e Injec t 90 unit subcu taneo usly one time a day for DM Give befor e lunch AND Injec t 250 unit subcu taneo usly two times a day for DM Give befor e break fast and dinne r 2024 - DM Ondansetron Oral Tablet Disintegrat ing aborted 8 mg Oral as needed PRN Give 8 mg by mouth every 12 hours as neede d for nause a/vom iting 05/18 nausea/vomi ting Ozempic (0.25 or 0.5 MG/DOSE) Subcutaneou s Solution Pen-injecto r 2 MG/3ML aborted 03025 54 RXNORM 0.25 mg Subcut aneous one time a day Routin e Injec t 0.25 mg subcu taneo usly one time a day every Thu for DM 05/18 DM Venlafaxine HCl ER Oral Tablet Extended Release 24 Hour 150 MG active 22962 4 RXNORM 1 table t Oral one time a day Routin e Give 1 table t by mouth one time a day for mood 2024 - mood metFORMIN HCl Oral Tablet 1000 MG active 33930 4 RXNORM 1 table t Oral two times a day Routin e Give 1 table t by mouth two times a day for DM 2024 - DM Rivaroxaban Oral Tablet 20 MG active 24032 86 RXNORM 1 table t Oral one time a day Routin e Give 1 table t by mouth one time a day for blood clot preve ntion 2024 - blood clot prevention Tamsulosin HCl Oral Capsule 0.4 MG active 15402 9 RXNORM 1 capsu le Oral one time a day Routin e Give 1 capsu le by mouth one time a day for BPH 2024 - BPH Spironolact one Oral Tablet 50 MG active 3 RXNORM 2 table t Oral one time a day Routin e Give 2 table t by mouth one time a day for edema 2024 - edema LORazepam Oral Tablet 1 MG aborted 1 RXNORM 1 table t Oral as needed PRN Give 1 table t by mouth every 24 hours as neede d for anxie ty 05/18 anxiety Tuberculin PPD Solution active 0.1 ml Intrad ermal one time a day Routin e Injec t 0.1 ml intra derma lly one time a day for PPD for 1 Admin istra tions First Step Admin ister Upon Admis cy. Docum ent in immun izati ons tab. AND Injec t 0.1 ml intra derma lly one time a day for PPD for 1 Admin istra tions Admin ister 2nd step TB skin test 7-14 days after 1st step was given . Docum ent in immun izati ons tab 05/20 PPD 0.1 ml Intrad ermal one time a day Routin e Injec t 0.1 ml intra derma lly one time a day for PPD for 1 Admin istra tions First Step Admin ister Upon Admis cy. Docum ent in immun izati ons tab. AND Injec t 0.1 ml intra derma lly one time a day for PPD for 1 Admin istra tions Admin ister 2nd step TB skin test 7-14 days after 1st step was given . Docum ent in immun izati ons tab 05/26 PPD Tuberculin PPD Solution active 0.1 olga liter Intrad ermal one time a day Routin e Injec t 0.1 olga liter intra derma lly one time a day for Annua l Scree shola Admin ister annua l TB skin test unles s contr aindi cated . Docum ent in immun izati on tab. 2025 - Annual Screening HYDROcodone -Acetaminop hen Oral Tablet 10-325 MG active 27997 9 RXNORM 1 table t Oral as needed PRN Give 1 table t by mouth every 6 hours as neede d for Pain 2024 - Pain LORazepam Oral Tablet 1 MG active 1 RXNORM 1 table t Oral as needed PRN Give 1 table t by mouth every 12 hours as neede d for Anxie ty 2024 - Anxiety Nicotine Transdermal Patch 24 Hour 21 MG/24HR active 26164 0 RXNORM 1 patch Transd ermal one time a day Routin e Apply 1 patch trans derma lly one time a day for nicot ine cessa tion 2024 - nicotine cessation Liraglutide 18 MG/3ML Solution pen-injecto r active 22823 2 RXNORM 0.6 mg Subcut aneous one time a day Routin e Injec t 0.6 mg subcu taneo usly one time a day for DMII 2024 - DMII Liraglutide 18 MG/3ML Solution pen-injecto r aborted 33760 2 RXNORM 0.6 mg Subcut aneous one time a day Routin e Injec t 0.6 mg subcu taneo usly one time a day every Fri for DMII 05/18 DMII Ondansetron HCl 8 MG Tablet active 48385 6 RXNORM 8 mg Oral as needed PRN Give 8 mg by mouth every 8 hours as neede d for NAUSE A/VOM ITING 2024 - NAUSEA/VOMI TING dilTIAZem HCl ER Coated Beads 120 MG Capsule extended release 24 hr active 26880 1 RXNORM 120 mg Oral one time a day Routin e Give 120 mg by mouth one time a day for HTN 2024 - HTN Insurance Providers Plan of Treatment Section Interventions Intervention Code Code System Display Name Proposed D ate Problems Problem # Description Date of onset Resolved Date Code CodeSystem Concern Status 1 ACUTE ON CHRONIC COMBINED SYSTOLIC (CONGESTIVE) AND DIASTOLIC (CONGESTIVE) HEART FAILURE 05/18/[address] active 2 BENIGN PROSTATIC HYPERPLASIA WITH LOWER URINARY TRACT SYMPTOMS 05/18/[address] active 3 CHRONIC ATRIAL FIBRILLATION, UNSPECIFIED 05/18/[address] active 4 CHRONIC OBSTRUCTIVE PULMONARY DISEASE, UNSPECIFIED 05/18/[address] active 5 DEPRESSION, UNSPECIFIED 05/18/[address] active 6 ESSENTIAL (PRIMARY) HYPERTENSION 05/18/[address] active 7 GASTRO-ESOPHAGEAL REFLUX DISEASE WITHOUT ESOPHAGITIS 05/18/[address] active 8 GENERALIZED ANXIETY DISORDER 05/18/[address] active 9 HYPERLIPIDEMIA, UNSPECIFIED 05/18/[address] active 10 MORBID (SEVERE) OBESITY DUE TO EXCESS CALORIES 05/18/[address] active 11 NON-PRESSURE CHRONIC ULCER OF OTHER PART OF RIGHT FOOT WITH UNSPECIFIED SEVERITY 05/18/[address] active 12 OBSTRUCTIVE AND REFLUX UROPATHY, UNSPECIFIED 05/18/[address] active 13 OBSTRUCTIVE SLEEP APNEA (ADULT) (PEDIATRIC) 05/18/[address] active 14 TYPE 2 DIABETES MELLITUS WITH FOOT ULCER 05/18/[address] active Reason for Referral No Reasons for Referral Entered Social History Social History Observation Description Start Date End Date Code Code System Current Smoking Status Tobacco smoking consumption unknown 483720145 SNOMED CT Sex Assigned At Male 1975 01755-3 [facility] Gender Identity Sexual Orientation Vital Signs Code Code System Vitals Name Values and Units Timing Information 2339-0 [facility] Blood Sugar Isynx=068.0 Units=mg/dL 05/20/2025 13551-0 [facility] Pain Level Value=3.0 05/20/2025 9279-1 [facility] Respiratory Rate Value=18.0 Units=/m in 05/20/2025 8462-4 [facility] Blood Pressure-Diastolic Value=78 Un its=mmHg 05/20/2025 8480-6 [facility] Blood Pressure-Systolic Syrpe=258 Un its=mmHg 05/20/2025 8310-5 [facility] Body Temperature Value=97.9 Units= F 05/20/2025 8867-4 [facility] Heart rate Value=78.0 Units=/min 02/2025 11279-4 [facility] O2 % BldC Oximetry Value=98.0 Units= % 05/20/2025 8302-2 [facility] Height Value=72.0 Units=Inches 05/18/2025 75882-0 [facility] Weight Yjybj=786.8 Units=Lbs 12/2024
--- OUTSIDE RECORDS SUMMARY | 2025-05-20 18:02 | XMS_ITS | Clinical Summary ---
Author Organization [facility] Address [address] [place] [address] Phone Care Team Providers Care [employer] Administrator Name Role Phone Allen RUSH, Emanuel Maurice Unavailable [phone] TRELL BECKWITH MD Unavailable [phone] PAWCARL DPZI Blackman Unavailable [phone] Petty Frost PA-C Primary Care Provider +1 [...] 9 11:03AM ; [facility], [facility] Past Visits Onset Date Resolved Date Provider Condition Status Bone Pain in the Heel 06/27/2014 Randy Booth DPM Active Last Documented On 4 1:06PM ; [facility] Plan of Treatment patient was seen by myself and Dr. Allen Foote PA-C. Patient will follow up 4 weeks after he tries interspinous process injection at L3-L4 no surgery would be needed for him - Last Documented On 11/02/2022 1:37PM ; [facility], [facility] Instructions to patient Instructions for patient See PCP for BP and Weight Last Documented On 2 2:52PM ; [facility], [facility] Intervention and counseling on cessation of tobacco use Last Documented On 2 3:18PM ; [facility], [facility] Lose weight Last Documented On 2 2:52PM ; [facility], [facility] Assessments Includes: Assessments from this encounter Findings L3-L4 spinous process edema - Last Documented On 11/02/2022 1:37PM ; [facility], [facility] Instructions Includes: Instructions from this encounter Instructions to patient Instructions for patient See PCP for BP and Weight Last Documented On 2 2:52PM ; [facility], [facility] Intervention and counseling on cessation of tobacco use Last Documented On 2 3:18PM ; [facility], [facility] Lose weight Last Documented On 2 2:52PM ; [facility], [facility] Medical Equipment - Implanted Devices Includes: Current Devices No Medical Equipment Recorded Medications Includes: Medications discussed during this encounter and other current Medications Current Medications (continue as prescribed) Xarelto 20 MG Oral Tablet 11/16/2021 Provider: Diagnosis: Last Documented On 2 3:17PM By Estrellita Vázquez ; [facility], [facility] Metoclopramide HCl 10 MG Oral Tablet 04/21/2019 Prov ider: Chintan Aguayo MD Diagnosis: Last Documented On 9 4:08PM By Daniel Mo ; [facility], [facility] Atorvastatin Calcium 40 MG Oral Tablet 04/21/2019 Pr ovider: Diagnosis: Last Documented On 9 4:08PM By Daniel Mo ; [facility], [facility] Furosemide 40 MG Oral Tablet 04/21/2019 Provider: Diagnosis: Last Documented On 9 4:09PM By Daniel Mo ; [facility], [facility] Potassium Chloride 20 MEQ Oral Packet 04/21/2019 Pro vider: Diagnosis: Last Documented On 9 4:09PM By Daniel Mo ; [facility], [facility] Omeprazole 40 MG Oral Capsul e Delayed Release 04/21/2019 Provider: Chintan Aguayo MD Diagnosis: Last Documented On 9 4:10PM By Daniel Mo ; [facility], [facility] ARIPiprazole 5 MG Oral Tablet 04/14/2019 Provider: Diagnosis: Last Documented On 9 4:10PM By Daniel Mo ; [facility], [facility] Venlafaxine HCl ER 150 MG Or al Capsule Extended Release 24 Hour 03/31/2019 Provider: Diagnosis: Last Documented On 9 4:10PM By Daniel Mo ; [facility], [facility] metFORMIN HCl 1000 MG Oral Tablet 03/10/2019 Provide r: Chintan Aguayo MD Diagnosis: Last Documented On 9 4:10PM By Daniel Mo ; [facility], [facility] Lisinopril-hydroCHLOROthiazi de 20-25 MG Oral Tablet 03/04/2019 Provider: TRELL BECKWITH MD Diagnosis: Last Documented On 9 4:10PM By Daniel Mo ; [facility], [facility] Past Medications on file Diclofenac Potassium 50 MG O R TABS 06/27/2014 - 07/27/2014 Provider: Randy DUMONT Diagnosis: be Last Documented On 4 1:34PM By Isa Avendano ; [facility], [facility] Medications Administered Includes: Administered Medications from this encounter No Administered Medications Recorded Vital Signs Includes: Vital Signs from this encounter Vital Name 12/12/2021 02:53P Blood Pressure Sitting (mmHg) 142/92 Pulse Rate-Sitting (bpm) 89 Height (in) 72 Weight (lb) 498 Body Mass Index (kg/m2) 67.5 Body Surface Area (m2) 3.1 Note: mg Last Documented: On 12/12/2021 3:18PM ; [facility], [facility] Results Includes: Results discussed during this encounter [...] Last Documented On 3 1:37PM ; [facility], [facility] Tobacco use 06/27/2014 Last Documented On 2 2:52PM ; [facility], [facility] Smoking status : Current everyday smoker 06/27/2014 Last Documented On 2 2:52PM ; [facility], [facility] Alcohol use 06/27/2014 Last Documented On 2 2:52PM ; [facility], [facility] Current smoker 06/27/2014 Last Documented On 2 2:52PM ; [facility], [facility] No caffeine use 06/27/2014 Last Documented On 2 2:52PM ; [facility], [facility] No recent change in diet 06/27/2014 Last Documented On 2 2:52PM ; [facility], [facility] Not exercising regularly 06/27/2014 Last Documented On 2 2:52PM ; [facility], [facility] Not using drugs 06/27/2014 Last Documented On 2 2:52PM ; [facility], [facility] Procedures and Surgical History Includes: Procedures from this encounter Procedures Code Diagnosis Performing Provider Service L ocation Service Date intervention and counseling on cessation of tobacco use 4000F Last Documented On 2 3:18PM ; [facility], [facility] pharmacologic therapy for cessation of tobacco u se 4001F Last Documented On 2 2:52PM ; [facility], [facility] use of tobacco assessment performed 1000F Last Documented On 2 3:18PM ; [facility], [facility] no influenza immunization patient refuse d Last Documented On 2 3:18PM ; [facility], [facility] follow-up visit in one month with PCP fo r elevated BP Last Documented On 2 3:18PM ; [facility], [facility] Medical History Includes: Medical History addressed during this encounter Description Last Updated No recent immunization for flu 2 Last Documented On 3 1:37PM ; [facility], [facility] No recent immunization for pneumococcal pneumonia 12/12/2021 Last Documented On 3 1:37PM ; [facility], [facility] Intermittent hypertension 04/22/2019 Last Documented On 2 2:52PM ; [facility], [facility] History of depression 04/22/2019 Last Documented On 2 2:52PM ; [facility], [facility] gall bladder, wisdom teeth 06/27/2014 Last Documented On 2 2:52PM ; [facility], [facility] Arthritic joint problems 06/27/2014 Last Documented On 2 2:52PM ; [facility], [facility] History of diabetes mellitus 06/27/2014 Last Documented On 2 2:52PM ; [facility], [facility] History of gastric ulcer 06/27/2014 Last Documented On 2 2:52PM ; [facility], [facility] Family History Includes: Family History addressed during this encounter Description Last Updated Family history of hypertension Last Documented On 2 2:52PM ; [facility] non-contributory 06/27/2014 Last Documented On 2 2:52PM ; [facility] Review of Systems Includes: Review [...] Time Diagnosis Follow Up Emanuel Villa MD [facility] 2 2:49PM 3:57PM Insurance Includes: Active Insurance Policies Plan Name Member ID Group # Subscriber Relationship Effect margarito Dates 1 - [facility] [id number] Gonzalo Russell Self 03/13/2022 - Unknown Clinical Notes Includes: Clinical Notes from this encounter * Progress note Date Encounter Last Documented by 12/12/2021 Follow Up Last documented on 11/02/2022; 1:37 PM, Emanuel Villa MD; [facility], [facility] Active Problems & Conditions - Bone Pain [...] Care Team - ZI CHANG DPM - Supervisor Of Officials - TRELL BECKWITH MD
--- OUTSIDE RECORDS SUMMARY | 2025-05-20 18:02 | XMS_ITS | Encounter Summary ---
Author Organization Healthcare Address [address] [id number] Care Team Providers Care Custom Leather Products Maker Name Role Phone Malcolm Hayward DIETITIAN Primary Care Provider [phone] Reason for Visit * Reason Comments Med Refill Encounter Details Date Type Department Care Team (Late st Contact Info) Description 04/19/2025 Refill [facility] [address] [place] [address] Divine Archer, DIETITIAN [address] [facility] [address] [place] [address] Type 2 diabetes mellitus Social [...] any time in the past 12 m [facility], were you homeless or living in [...] Description 05/30/2025 2:40 PM EST Office Visit [facility] [address] [facility] 5th Floor [address] [place] [address] Sheila Marcano, BLAS [address] [place] [address] 06/14/2025 1:40 PM EST Office Visit [facility] [address] [place] [address] Divine Archer, DIETITIAN [address] [place] [address] 06/22/2025 1:40 PM EST Office Visit [facility] [address] [facility] 5th [facility] [address] [place] [address] Mary Vicente MD [address] [place] [address] documented as of this encounter [...] documented as of this encounter Care Teams Custom Leather Products Maker Relationship Specialty Start Date End Date Malcolm Hayward, DIETITIAN [address] [place] [id number] PCP - General 09/21/23 documented as of this encounter
--- OUTSIDE RECORDS SUMMARY | 2025-05-20 18:02 | XMS_ITS | Clinical Summary ---
[facility] Organization [facility] Address [address] [place] [address] Care Team Providers Care Mechanical Striper Name Role Phone Provider, No Known Primary [...] Date Last Done Comments ANNUAL PHYSICAL 1977 Pneumococcal Vaccine 0-49 (1 of 2 - PCV) 1996 TDAP/TD VACCINES (1 - Tdap) 1996 COLOGUARD 2022 COLON CANCER SCREENING 5 YEAR SIGMOIDOSCOPY 2022 COLONOSCOPY 2022 COLORECTAL CANCER SCREENING 2022 CT COLONOGRAPHY 2022 FECAL OCCULT BLOOD TEST 2022 FIT Testing (1 year) 2022 INFLUENZA VACCINE 02/10/2025 HEPATITIS C SCREENING Completed 04/27/2025 Insurance Care Teams Mechanical Striper Relationship Specialty Start Date End Date Provider, No Known [facility] [address] PCP - General 02/11/21
--- OUTSIDE RECORDS SUMMARY | 2025-05-20 18:02 | XMS_ITS ---
Author Organization [facility] Address [address] [place] [address] Phone Care Team Providers Care Console Operator Name Role Phone Allen RUSH, Emanuel Maurice Unavailable [phone] TRELL BECKWITH MD Unavailable [phone] PAWT DPYehuda, ZI Unavailable [phone] Petty Frost PA-C Primary Care Provider [phone] Problems Includes: Active, inactive, and resolved Problems All Visits Onset Date Resolved Date Provider Condition S tatus Lower Back Pain 04/22/2019 Emanuel Villa MD Act margarito Last Documented On 9 11:03AM ; [facility], [facility] Bone Pain in the Heel 06/27/2014 Randy Booth DPM Active Last Documented On 4 1:06PM ; [facility], [facility] Plan of Treatment Findings Encounter Date Ordered weight loss diet Physician Specified [facility] Emanuel Villa MD 04/22/2019 Last Documented On 0 12:13PM ; [facility], [facility] Ordered weight loss diet NEW PATIENT with Randy Booth DPM 06/27/2014 Last Documented On 4 1:30PM ; [facility], [facility] Instructions to patient Instructions for patient See PCP for BP and Weight Last Documented On 2 2:52PM ; [facility], [facility] Intervention and counseling on cessation of tobacco use Last Documented On 2 3:18PM ; [facility], [facility] Lose weight Last Documented On 2 2:52PM [...] On 9 4:09PM By Daniel [facility], [facility] Potassium Chloride 20 MEQ Oral Packet 04/21/2019 Pro vider: Diagnosis: Last Documented On 9 4:09PM By Daniel Mo ; [facility], [facility] Omeprazole 40 MG Oral Capsul e Delayed Release 04/21/2019 Provider: Chintan Aguayo MD Diagnosis: Last Documented On 9 4:10PM By Daniel Mo ; [facility], [facility] ARIPiprazole 5 MG Oral Tablet 04/14/2019 Provider: Diagnosis: Last Documented On 9 4:10PM By Daniel Mo ; [facility], [facility] Venlafaxine HCl ER 150 MG Or al Capsule Extended Release 24 Hour 03/31/2019 Provider: Diagnosis: Last Documented On 9 4:10PM By Daniel Mo ; [facility], [facility] metFORMIN HCl 1000 MG Oral Tablet 03/10/2019 Provide r: Chintan Aguayo MD Diagnosis: Last Documented On 9 4:10PM By Daniel Mo ; [facility], [facility] Lisinopril-hydroCHLOROthiazi de 20-25 MG Oral Tablet 03/04/2019 Provider: TRELL BECKWITH MD Diagnosis: Last Documented On 9 4:10PM By Daniel Mo ; [facility], [facility] Past Medications on file Lexapro 10 MG OR TABS 06/27/2014 - 04/22/2019 Provider : Diagnosis: Last Documented On 9 4:08PM By Daniel Mo ; [facility], [facility] Lisinopril 10 MG OR TABS 06/27/2014 - 04/22/2019 Provi vincent: Diagnosis: Last Documented On 9 4:08PM By Daniel Mo ; [facility], [facility] metFORMIN HCl 500 MG TABS 06/27/2014 - 04/22/2019 Prov ider: Diagnosis: Last Documented On 9 4:08PM By Daniel Mo ; [facility], [facility] Dexilant 30 MG OR CPDR 06/27/2014 - 04/22/2019 Provide r: Diagnosis: Last Documented On 9 4:08PM By Daniel Mo ; [facility], [facility] Diclofenac Potassium 50 MG O R TABS 06/27/2014 - 07/27/2014 Provider: Randy DUMONT Diagnosis: be Last Documented On 4 1:34PM By Isa Avendano ; [facility], [facility] Medications Administered Includes: Administered Medications in patient's chart No Administered Medications Recorded Results Includes: Results from 05/20/2024 through 05/20/2025 No Results Recorded For Specified Dates History of Present Illness History of Present Illness not supported for this document type No History of Present Illness Recorded Social History Description Last Updated Smoker 12/12/2021 Last Documented On 3 1:37PM ; [facility] Unemployed 12/12/2021 Last Documented On 3 1:37PM ; [facility], [facility] Tobacco use 06/27/2014 Last Documented On 4 1:30PM ; [facility], [facility] Smoking status : Current everyday smoker 06/27/2014 Last Documented On 4 1:30PM ; [facility], [facility] Alcohol use 06/27/2014 Last Documented On 4 1:30PM ; [facility], [facility] Current smoker 06/27/2014 Last Documented On 4 1:30PM ; [facility], [facility] No caffeine use 06/27/2014 Last Documented On 4 1:30PM ; [facility], [facility] No recent change in diet 06/27/2014 Last Documented On 4 1:30PM ; [facility], [facility] Not exercising regularly 06/27/2014 Last Documented On 4 1:30PM ; [facility], [facility] Not using drugs 06/27/2014 Last Documented On 4 1:30PM ; [facility], [facility] Medical History Includes: Medical History in patient's chart Description Last Updated No recent immunization for flu 2 Last Documented On 3 1:37PM ; [facility], [facility] No recent immunization for pneumococcal pneumonia 12/12/2021 Last Documented On 3 1:37PM ; [facility], [facility] Intermittent hypertension 04/22/2019 Last Documented On 0 [...] 9 Last Documented On 0 12:13PM ; [facility] non-contributory 06/27/2014 Last Documented On 4 1:30PM ; [facility] Review of Systems Review of [...] - [facility] [id number] Gonzalo Russell Self 03/13/2022 - Unknown Clinical Notes Includes: Signed Clinical Notes starting from 06/26/2022 No Clinical Notes Recorded
--- OUTSIDE RECORDS SUMMARY | 2025-05-20 18:02 | XMS_ITS | Clinical Summary ---
Author Organization [facility] , [facility] Address [address] [place] [address] Phone Care Team Providers Care Product Finisher Name Role Phone Allen RUSH, Emanuel Maurice Unavailable [phone] TRELL BECKWITH MD Unavailable [phone] PAWCARL DPZI Blackman Unavailable [phone] Petty Frost PA-C Primary Care Provider [phone] Reason for Visit and Chief Complaint Epidural Steroid Injection Problems Includes: Problems addressed during this encounter and other active Problems All Visits Onset Date Resolved Date Provider Condition S tatus Lower Back Pain 04/22/2019 Emanuel Villa MD Act margarito Last Documented On 9 11:03AM ; [facility] Bone Pain in the Heel 06/27/2014 Randy Booth DPM Active Last Documented On 4 1:06PM ; [facility] Plan of Treatment No Plan of Treatment Recorded Assessments Includes: Assessments from this encounter No Assessments Recorded Medical Equipment - Implanted Devices Includes: Current Devices No Medical Equipment Recorded Medications Includes: Medications discussed during this encounter and other current Medications Current Medications (continue as prescribed) Xarelto 20 MG Oral Tablet 11/16/2021 Provider: Diagnosis: Last Documented On 2 3:17PM By Estrellita Vázquez ; [facility], [facility] Metoclopramide HCl 10 MG Oral Tablet 04/21/2019 Prov ider: Chintan Aguayo MD Diagnosis: Last Documented On 9 4:08PM By Daniel Mo ; [facility], [facility] Atorvastatin Calcium 40 MG Oral Tablet 04/21/2019 Pr ovider: Diagnosis: Last Documented On 9 4:08PM By Daniel Mo ; [facility], [facility] Furosemide 40 MG Oral Tablet 04/21/2019 Provider: Diagnosis: Last Documented On 9 4:09PM By Daniel Mo ; [facility], [facility] Potassium Chloride 20 MEQ Oral Packet 04/21/2019 Pro vider: Diagnosis: Last Documented On 9 4:09PM By Daniel Mo ; [facility], [facility] Omeprazole 40 MG Oral Capsul e Delayed Release 04/21/2019 Provider: Chintan Aguayo MD Diagnosis: Last Documented On 9 4:10PM By Daniel Mo ; [facility], [facility] ARIPiprazole 5 MG Oral Tablet 04/14/2019 Provider: Diagnosis: Last Documented On 9 4:10PM By Daniel Mo ; [facility], [facility] Venlafaxine HCl ER 150 MG Or al Capsule Extended Release 24 Hour 03/31/2019 Provider: Diagnosis: Last Documented On 9 4:10PM By Daniel Mo ; [facility], [facility] metFORMIN HCl 1000 MG Oral Tablet 03/10/2019 Provide r: Chintan Aguayo MD Diagnosis: Last Documented On 9 4:10PM By Daniel Mo ; [facility], [facility] Lisinopril-hydroCHLOROthiazi de 20-25 MG Oral Tablet 03/04/2019 Provider: TRELL BECKWITH MD Diagnosis: Last Documented On 9 4:10PM By Daniel Mo ; [facility], [facility] Medications Administered Includes: Administered Medications [...] margarito Dates 1 - [facility] [id number] Gonzalo Ng 03/13/2022 - Unknown Clinical Notes Includes: Clinical Notes from this encounter No Clinical Notes Recorded
--- OUTSIDE RECORDS SUMMARY | 2025-05-20 18:02 | XMS_ITS | Clinical Summary ---
Author Organization [facility] , [facility] Address [address] [place] [address] Phone Care Team Providers Care Manager Environmental Health And Safety Name Role Phone Allen RUSH, Emanuel Maurice Unavailable [phone] TRELL BECKWITH MD Unavailable [phone] PAWCARL DPZI Blackman Unavailable [phone] Petty Frost PA-C Primary Care Provider [phone] Reason for Visit and Chief Complaint Epidural Steroid Injection Problems Includes: Problems addressed during this encounter and other active Problems All Visits Onset Date Resolved Date Provider Condition S tatus Lower Back Pain 04/22/2019 Emanuel Villa MD Act margarito Last Documented On 9 11:03AM ; [facility] Bone Pain in the Heel 06/27/2014 Randy Booth DPM Active Last Documented On 4 1:06PM ; [facility] Plan of Treatment No Plan [...] [facility] Metoclopramide HCl 10 MG Oral Tablet 04/21/2019 Prov ider: Chintan Aguayo MD Diagnosis: Last Documented On 9 4:08PM By Daniel Mo ; [facility] Atorvastatin Calcium 40 MG Oral Tablet 04/21/2019 Pr ovider: Diagnosis: Last Documented On 9 4:08PM By Daniel Mo ; [facility] Furosemide 40 MG Oral Tablet 04/21/2019 Provider: Diagnosis: Last Documented On 9 4:09PM By Daniel Mo ; [facility] Potassium Chloride 20 MEQ Oral Packet 04/21/2019 Pro vider: Diagnosis: Last Documented On 9 4:09PM By Daniel Mo ; [facility] Omeprazole 40 MG Oral Capsul e Delayed Release 04/21/2019 Provider: Chintan Aguayo MD Diagnosis: Last Documented On 9 4:10PM By Daniel Mo ; [facility] ARIPiprazole 5 MG Oral Tablet 04/14/2019 Provider: Diagnosis: Last Documented On 9 4:10PM By Daniel Mo ; [facility] Venlafaxine HCl ER 150 MG Or al Capsule Extended Release 24 Hour 03/31/2019 Provider: Diagnosis: Last Documented On 9 4:10PM By Daniel Mo ; [facility] metFORMIN HCl 1000 MG Oral Tablet 03/10/2019 Provide r: Chintan Aguayo MD Diagnosis: Last Documented On 9 4:10PM By Daniel Mo ; [facility] Lisinopril-hydroCHLOROthiazi de 20-25 MG Oral Tablet 03/04/2019 Provider: TRELL BECKWITH MD Diagnosis: Last Documented On 9 4:10PM By Daniel Mo ; [facility] Medications Administered Includes: Administered Medications [...] Subscriber Relationship Effect margarito Dates 1 - [facility] [id number] Gonzalo Ng 03/13/2022 - Unknown Clinical Notes Includes: Clinical Notes from this encounter No Clinical Notes Recorded
--- OUTSIDE RECORDS SUMMARY | 2025-05-20 18:05 | XMS_ITS | Encounter Summary ---
Author Organization Healthcare Address [address] [id number] Care Team Providers Care Media Theorist And Author Of Name Role Phone Malcolm Hayward FREIGHT SERVICE INSPECTOR Primary Care Provider [phone] Reason for Visit * Reason Comments Med Refill Encounter Details Date Type Department Care Team (Late st Contact Info) Description 07/07/2024 Refill [facility] [address] [place] [address] Mayra Torres PA [address] [address] Type 2 diabetes mellitus (CMS/HCC) [...] Description 05/30/2025 2:40 PM EST Office Visit [facility] [address] [facility] 5th Floor [address] [place] [address] Sheila Marcano PA [address] [facility] [address] [place] [address] 06/14/2025 1:40 PM EST [facility] [address] [place] [address] Divine Archer APRN [address] [facility] [address] [place] [address] 06/22/2025 1:40 PM EST Office Visit [facility] [address] [facility] 5th Floor [address] [place] [address] Mary Vicente MD [address] [facility] [address] [place] [address] documented as of this encounter [...] documented as of this encounter Care Teams Media Theorist And Author Of Relationship Specialty Start Date End Date Malcolm Hayward APRN [address] [place], [place] [id number] PCP - General 09/21/23 documented as of this encounter
--- OUTSIDE RECORDS SUMMARY | 2025-05-20 18:07 | XMS_ITS | Encounter Summary ---
Author Organization [facility] Address [address] [id number] Care Team Providers Care Visual Basic .Net Developer Name Role Phone Malcolm Hayward APRN Primary Care Provider [phone] Encounter Details Date Type Department Care Team (Latest Contact Info) Description 05/01/2025 Travel Social History Tobacco Use Types Packs/Day [...] any time in the past 12 m [facility], were you homeless or living in a jail (including now)? No 04/28/2025 [facility] Utilities Answer Date Recorded In the [...] of Assessment Author No Risk Indicated 05/01/2025 8:01 PM EDT Aime Gill, RN * Question Answer Date of Assessment Author 1. Wish to be (Past 1 Month) No 025 8:01 PM EDT Aime Gill, RN 2. Non-Specific Active Suici jonny Thoughts (Past 1 Month) No 05/01/2025 8:01 PM EDT Teena Gill, RN 6. Suicidal Behavior (Lifetime) No 8:01 PM EDT Aime Gill, RN documented as of this encounter Plan of Treatment Upcoming Encounters Date Type Department Care Team (Late st Contact Info) Description 05/30/2025 2:40 PM EST Office Visit [facility] [address] [facility] 5th Floor [address] [place] [address] Marcano, Sheila N, PA [address] [place] [address] 06/14/2025 1:40 PM EST Office Visit [facility] Endocrinology [address] [place] [address] Divine Archer APRN [address] [place] [address] 06/22/2025 1:40 PM EST [facility] [address] 5th Floor [address] [place] [address] Mary Vicente MD [address] [facility] [address] [place] [address] documented as of this encounter [...] documented as of this encounter Care Teams Visual Basic .Net Developer Relationship Specialty Start Date End Date Malcolm Hayward APRN [address] [place] [id number] PCP - General 09/21/23 documented as of this encounter
--- OUTSIDE RECORDS SUMMARY | 2025-05-20 18:07 | XMS_ITS | Encounter Summary ---
Author Organization Healthcare Address [address] [place] [address] Care Team Providers Care Process Control Manager Name Role Phone Malcolm Hayward ADALGISA Primary Care Provider [phone] Encounter Details Date Type Department Care Team ([facility] st Contact Info) Description 05/01/2025 Orders Only External Location [address] [place] [address] Provider, External Social History Tobacco Use Types [...] time in the past 12 m [facility], were you homeless or living in a halfway (including now)? No 04/28/2025 [facility] Utilities Answer Date Recorded In the [...] Date of Assessment Author No Risk Indicated 05/05/2025 8:00 AM EDT Nitza Gonzalez, LOLA * Question Answer Date of Assessment Author 1. Wish to be (Past 1 Month) No 025 8:00 AM EDT Nitza Mishra, LOLA 2. Non-Specific Active Suici jonny Thoughts (Past 1 Month) No 05/05/2025 8:00 AM EDT Manuel Mishra, LOLA 6. Suicidal Behavior (Lifetime) No 8:00 AM EDT Nitza Mishra, LOLA documented as of this encounter Plan of Treatment Upcoming Encounters Date Type Department Care Team (Late st Contact Info) Description 05/30/2025 2:40 PM EST Office Visit [place] [facility] [address] 5th Floor [address] [place] [address] Sheila Marcano PA [address] [place] [address] 06/14/2025 1:40 PM EST Office Visit [facility] Endocrinology [address] [place] [address] Divine Archer, REPLENISHMENT ASSOCIATE [address] [place] [address] 06/22/2025 1:40 PM EST Office Visit [facility] [address] 5th Floor [address] [place] [address] Mary Vicente MD [address] [facility] [address] [place] [address] documented as of this encounter Procedures Procedure Name Priority Date/Time Associated Diagnosis Comments POC ULTRASOUND 05/01/2025 documented in this encounter Results * POC Imaging (05/01/2025) Anatomical Region Laterality Modality Pelvis Other 05/01/2025 us External Provider IMG POINT OF CARE ULTRASOUND E dited Result - Final documented in this encounter Visit Diagnoses Not on filedocumented in this encounter Additional Health Concerns Infection [...] documented as of this encounter Care Teams Process Control Manager Relationship Specialty Start Date End Date Malcolm Hayward, REPLENISHMENT ASSOCIATE [address] [place] [address] [place] [address] PCP - General 09/21/23 documented as of this encounter
--- OUTSIDE RECORDS SUMMARY | 2025-05-20 18:07 | XMS_ITS | Encounter Summary ---
Author Organization [facility] Address [address] [id number] Care Team Providers Care Mold Design Engineer Name Role Phone Malcolm Hayward APRN Primary Care Provider [phone] Encounter Details Date Type Department Care Team (Latest Contact Info) Description 05/17/2025 Travel Social History Tobacco Use Types Packs/Day [...] any time in the past 12 m [facility], were you homeless or living in a m[facility] (including now)? No 04/28/2025 [facility] Utilities Answer Date Recorded In the past [...] Date of Assessment Author No Risk Indicated 05/17/2025 8:00 AM Deepthi Galeano RN * Question Answer Date of Assessment Author 1. Wish to be (Past 1 Month) No 025 8:00 AM Deepthi Galeano, RN 2. Non-Specific Active Suici jonny Thoughts (Past 1 Month) No 05/17/2025 8:00 AM Deepthi Galeano, RN 6. Suicidal Behavior (Lifetime) No 8:00 AM Deepthi Galeano, RN documented as of this encounter Plan of Treatment Upcoming Encounters Date Type Department Care Team (Late st Contact Info) Description 05/30/2025 2:40 PM EST Office Visit [place] [facility] [address] [facility] 5th Floor [address] [place] [phone] Marcano, Sheila N, PA [address] [place] [address] 06/14/2025 1:40 PM EST Office Visit Jacqueline Nunez [facility] Endocrinology [address] [place] [address] Divine Archer APRN [address] [place] [address] 06/22/2025 1:40 PM EST Office [facility] [address] 5th Floor [address] [place] [address] Mary Vicente MD [address] [facility] [address] [place] [address] documented as of this encounter [...] as of this encounter Care Teams Mold Design Engineer Relationship Specialty Start Date End Date Malcolm Hayward APRN [address] [place] [phone] PCP - General 09/21/23 documented as of this encounter
--- OUTSIDE RECORDS SUMMARY | 2025-05-20 18:08 | XMS_ITS | Encounter Summary ---
Author Organization Healthcare Address [address] [place] [address] Care Team Providers Care Food Service Worker Hospital Name Role Phone Malcolm Hayward ADALGISA Primary Care Provider [phone] Reason for Visit * Reason Onset Date Comments HCN Clinical Concern/Question 05/19/2025 Encounter Details Date Type Department Care Team (Late st Contact Info) Description 05/19/2025 Telephone [place] [facility] [address] [facility] 5th Floor Wing [address] [place] [address] Sheila Marcano, PA [address] [facility] [address] [place] [address] HCN Clinical Concern/Question Social History Tobacco Use Types Packs/Day Years [...] any time in the past 12 m [facility], were you homeless or living in a assisted (including now)? No 04/28/2025 [facility] Utilities Answer Date Recorded In the [...] encounter Miscellaneous Notes * Telephone Encounter - Diane Daniels Jeane - 05/19/2025 2:11 PM EST Clinical Concern/Question Reason for Call: Praveen from [facility] acute [facility] is calling to see if the patient could get a off loading boot so he could be moved to their facility or if he has to wait until his next carlos a with the clinic on 05/30/25. Please call praveen back with info. Thank you Best contact number: Other: [phone] Optimal time of day to reach caller: [...] Description 05/30/2025 2:40 PM EST Office Visit [facility] [address] [facility] 5th [facility] Wing [address] [place] [address] Sheila Marcano, PA [address] [facility] [address] [place] [address] 06/14/2025 1:40 PM EST Office Visit [facility] Endocrinology [address] [place] [phone] Divine Archer, SPEECH SCIENTIST [address] [facility] [address] [place] [address] 06/22/2025 1:40 PM EST Office Visit [facility] [address] [place] [address] Mary Vicente MD [address] [facility] [address] [place] [address] documented as of this encounter [...] documented as of this encounter Care Teams Food Service Worker Hospital Relationship Specialty Start Date End Date Malcolm Hayward APRN [address] [phone] PCP - General 09/21/23 documented as of this encounter
--- OUTSIDE RECORDS SUMMARY | 2025-05-20 18:08 | XMS_ITS | Clinical Summary ---
Author Organization [facility] , [facility] Address [address] [place] [address] Phone Care Team Providers Care Planishing Press Operator Name Role Phone Allen RUSH, Emanuel Maurice Unavailable [phone] TRELL BECKWITH MD Unavailable [phone] PAWCARL DPZI Blackman Unavailable [phone] Petty Frost PA-C Primary Care Provider [phone] Reason for Visit and Chief Complaint Epidural Steroid Injection Problems Includes: Problems addressed during this encounter and other active Problems All Visits Onset Date Resolved Date Provider Condition S tatus Lower Back Pain 04/22/2019 Emanuel Villa MD Act margarito Last Documented On 9 11:03AM ; [facility] Bone Pain in the Heel 06/27/2014 Randy Booth DPM Active Last Documented On 4 1:06PM ; [facility] Plan of Treatment No Plan [...] By Estrellita Vázquez ; [facility], [facility] Metoclopramide HCl 10 MG Oral Tablet 04/21/2019 Prov ider: Chintan Aguayo MD Diagnosis: Last Documented On 9 4:08PM By Daniel Mo ; [facility], [facility] Atorvastatin Calcium 40 MG Oral Tablet 04/21/2019 Pr ovider: Diagnosis: Last Documented On 9 4:08PM By Daniel Mo ; [facility], [facility] Furosemide 40 MG Oral Tablet 04/21/2019 Provider: Diagnosis: Last Documented On 9 4:09PM By Daniel Mo ; [facility], [facility] Potassium Chloride 20 MEQ Oral Packet 04/21/2019 Pro vider: Diagnosis: Last Documented On 9 4:09PM By Daniel Mo ; [facility], [facility] Omeprazole 40 MG Oral Capsul e Delayed Release 04/21/2019 Provider: Chintan Aguayo MD Diagnosis: Last Documented On 9 4:10PM By Daniel Mo ; [facility], [facility] ARIPiprazole 5 MG Oral Tablet 04/14/2019 Provider: Diagnosis: Last Documented On 9 4:10PM By Daniel Mo ; [facility], [facility] Venlafaxine HCl ER 150 MG Or al Capsule Extended Release 24 Hour 03/31/2019 Provider: Diagnosis: Last Documented On 9 4:10PM By Daniel Mo ; [facility], [facility] metFORMIN HCl 1000 MG Oral Tablet 03/10/2019 Provide r: Chintan Aguayo MD Diagnosis: Last Documented On 9 4:10PM By Daniel Mo ; [facility], [facility] Lisinopril-hydroCHLOROthiazi de 20-25 MG Oral Tablet 03/04/2019 Provider: TRELL BECKWITH MD Diagnosis: Last Documented On 9 4:10PM By Daniel Mo ; [facility], [facility] Medications Administered Includes: Administered Medications from [...] Diagnosis Epidural Steroid Injection Emanuel Villa MD [facility] 03/26/20 22 11:04AM 11:54AM Insurance Includes: Active Insurance Policies Plan Name Member ID Group # Subscriber Relationship Effect margarito Dates 1 - [facility] [id number] Gonzalo Ng 03/13/2022 - Unknown Clinical Notes Includes: Clinical Notes from this encounter No Clinical Notes Recorded
--- OUTSIDE RECORDS SUMMARY | 2025-05-20 18:08 | XMS_ITS | Encounter Summary ---
Author Organization [facility] Address [address] [id number] Care Team Providers Care Building Surveyor Name Role Phone Malcolm Hayward APRN Primary Care Provider [phone] Encounter Details Date Type Department Care Team (Latest Contact Info) Description 04/27/2025 Travel Social History Tobacco Use Types Packs/Day [...] any time in the past 12 m [facility], were you homeless or living in a [facility] (including now)? No 04/28/2025 [facility] Utilities Answer Date Recorded In the [...] Date of Assessment Author No Risk Indicated 04/27/2025 9:43 PM EDT Stella Daniels RN * Question Answer Date of Assessment Author 1. Wish to be (Past 1 Month) No 025 9:43 PM EDT Stella Daniels RN 2. Non-Specific Active Suici jonny Thoughts (Past 1 Month) No 04/27/2025 9:43 PM EDT Tacho Daniels RN 6. Suicidal Behavior (Lifetime) No 9:43 PM LOGANT Stella Daniels RN documented as of this encounter Plan of Treatment Upcoming Encounters Date Type Department Care Team (Late st Contact Info) Description 05/30/2025 2:40 PM EST Office Visit [place] [facility] [address] [facility] 5th Floor [address] [place] [phone] Sheila Marcano, PA [address] [place] [address] 06/14/2025 1:40 PM EST Office Visit Jacqueline Nunez [facility] Endocrinology [address] [place] [phone] Divine Archer APRN [address] [place] [address] 06/22/2025 1:40 PM EST Office Visit [place] [facility] [address] 5th [address] [place] [address] Mary Vicente MD [address] [facility] [address] [place] [address] documented as of this encounter [...] as of this encounter Care Teams Building Surveyor Relationship Specialty Start Date End Date Malcolm Hayward APRN [address] [place] [id number] PCP - General 09/21/23 documented as of this encounter
--- OUTSIDE RECORDS SUMMARY | 2025-05-20 18:08 | XMS_ITS | Clinical Summary ---
Author Organization [facility] Address [address] [place] [address] Care Team Providers Care Clothing Presser Name Role Phone Malcolm Hayward ADALGISA Primary Care Provider [phone] Allergies Active Allergy Reactions Criticality Noted Date Comments Vancomycin Other - please docum ent in the comment field Low 04/27/2025 Red man syndrome Medications atorvastatin (Lipitor) 40 MG tablet Take 1 tablet by mouth nightly. Active omeprazole (PriLOSEC) [address] capsule Take 1 capsule by mouth 2 times a day. 017 Active rivaroxaban (Xarelto) 20 MG tablet Take 1 tablet by mouth daily. Active venlafaxine XR (Effoxor-XR) 150 MG 24 hr capsule Take 1 capsule by mouth daily. 018 Active bisoprolol (Zebeta) 5 MG tablet Take 1 tablet by mouth 2 times a day. Active spironolactone (Aldactone) 50 MG tablet Take 2 tablets by mouth daily. 021 Active cariprazine (Vraylar) 3 MG capsule Take 1 capsule by mouth daily. Active dilTIAZem CD (Cardizem CD) 120 MG 24 hr capsule Take 1 capsule by mouth daily. Active metFORMIN (Glucophage) 1000 MG tabletIndications :Type 2 diabetes mellitus TAKE 1 TAB BY MOUTH 2 (TWO) TIMES A DAY WITH MEALS. MUST COMPLETE LABS FOR FURTHER RESULTS. 180 tablet 1 025 Active mupirocin (Bactroban) 2 % ointment Apply 1 Application topically 2 times a day. Active albuterol 108 (90 Base) MCG/ACT inhaler Inhale 2 puffs every 4 to 6 hours as needed for wheezing or shortness of breath. Active naloxone (Narcan) 4 mg/0.1 mL nasal spray 1. Give 1 spray in nostril for no/slow breathing or cannot wake after opioid use 2. Call 911 3. Repeat in other nostril if symptoms continue 1 each Active Ostomy Supplies (stomahesive) powder powderIndications :Dermatitis associated with moisture Apply 1 Application topically as needed (as needed). May apply powder over washed areas, and on top of protectant cream. May be mixed together for application. 28.3 g 3 Active Insulin Pen Needle (Pen [place]) 31G X 5 MM [facility] [place] USE TO INJECT INSULIN 3 TIMES PER DAY 100 each 1 Active Ozempic, 0.25 or 0.5 MG/DOSE, 2 MG/3ML solution pen-injector Inject 0.25 mg under the skin 1 time per week. Active tamsulosin (Flomax) 0.4 MG 24 hr capsule Take 1 capsule by mouth daily. Active bumetanide (Bumex) 2 MG tabletIndications :Heart Failure,Hypertens ion Take 2 tablets by mouth 3 times a day. Active ondansetron ODT (Zofran-ODT) 8 MG disintegrating tablet Dissolve 1 tablet on the tongue every 12 hours as needed for nausea or vomiting. Active ferrous sulfate 324 MG tablet delayed-release Take 1 tablet by mouth every other day. Do not crush, chew, or split. Active insulin regular (HumuLIN R,NovoLIN R) 100 UNIT/ML injection vialIndications:T ype 2 Diabetes Mellitus Inject 250 Units under the skin 2 times a day with meals. 10 mL 5 Active HYDROcodone-aceta minophen (Rankin) 10-325 MG tablet Take 1 tablet by mouth every 6 hours as needed for severe pain for up to 3 days. 5 tablet 2024 Active gabapentin (Neurontin) 600 MG tablet Take 1 tablet by mouth 3 times a day. 5 tablet Active insulin regular (HumuLIN R U-500) 500 UNIT/ML CONCENTRATED injection vial Inject 90 Units under the skin daily before lunch. 20 mL 5 Active LORazepam (Ativan) 1 MG tablet Take 1 tablet by mouth daily as needed for anxiety (must last 30 days). 017 2024 Discontinued(S top Taking at Discharge) traZODone (Desyrel) 100 MG tablet Take 1 tablet by mouth nightly. 019 2024 Discontinued(S top Taking at Discharge) gabapentin (Neurontin) 600 MG tablet Take 1 tablet by mouth 3 times a day. 022 2024 Discontinued torsemide (Demadex) 20 MG tablet Take 1 tablet by mouth daily. 2024 Discontinued(E ntered in Error) oxyCODONE (Roxicodone) 5 MG immediate release tablet Take 1 tablet by mouth every 6 hours as needed for severe pain. 9 tablet 2024 Discontinued(P er Patient Report) ondansetron ODT (Zofran-ODT) 4 MG disintegrating tablet Dissolve 1 tablet on the tongue every 6 hours as needed for nausea or vomiting. 20 tablet 2024 Discontinued(E ntered in Error) acetaminophen (Tylenol) 325 MG tablet Take 2 tablets by mouth every 6 hours as needed for pain. Under [place] law, monthly prescriptions (30 days) can be refilled at 25 days and three-month prescriptions (90 days) at 80 days. Please contact the insurance company with questions if refills are denied. 100 tablet 2024 Discontinued(E ntered in Error) polyethylene glycol (Miralax) 17 g packet Take 17 g by mouth daily. 30 packet 2024 Discontinued(E ntered in Error) HYDROcodone-aceta minophen (Rankin) 10-325 MG tablet Take 1 tablet by mouth every 6 hours as needed. 2024 Discontinued insulin NPH-insulin regular (NovoLIN 70/30 FlexPen) (70-30) 100 UNIT/ML injection pen Inject 90 Units under the skin 3 times a day before meals. FURTHER REFILLS WILL BE PROVIDED UPON ATTENDANCE OF NEXT OFFICE VISIT 03/29/25 90 mL 2024 Discontinued(P er Patient Report) insulin regular (HumuLIN R,NovoLIN R) 100 UNIT/ML injection vialIndications:T ype 2 Diabetes Mellitus Inject 200 Units under the skin 2 times a day with meals. 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 04/27/2025 Abscess of groin, right 12/12/2024 Assessment & [...] sleeve procedure 05/19/2024 Diabetic foot ulcer 05/19/2024 Smoker unmotivated to quit 05/19/2024 Tachycardia [...] [facility] Microalbuminuria 04/09/2018 Morbid obesity 12/24/2016 Assessment & Plan (12/15/2024 3:32 PM EDT): [...] Resolved Date Acute kidney injury 05/19/2024 04/02/20 CAP (community acquired pneumonia) 05/19/2024 04/02/2025 Cellulitis 05/19/2024 04/02/2025 Gastroenteritis 05/19/2024 04/02/2025 Left lower lobe pneumonia 05/19/2024 Sepsis 05/19/2024 04/02/2025 UTI (urinary tract infection) 05/19/2024 04/02/2025 Encounters Date Type Department Care Team Description 05/19/2025 Telephone [facility] [address] [facility] 5th Floor [address] [place] [address] Sheila Marcano PA HCN Clinical Concern/Question 05/18/2025 Travel 05/17/2025 Travel 05/01/2025 7:30 AM EDT - 05/01/2025 8:50 AM EDT Surgery [facility] [address] [place] [address] Mary iVcente MD AMPUTATION,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 4th 05/01/2025 7:28 AM EDT Anesthesia Event [facility] [address] [place] [address] Gilberto Rivera MD Ford, Hermilo Archer MD 05/01/2025 Orders Only External Location [address] [place] [address] Provider, External 05/01/2025 Travel 04/28/2025 Travel 04/27/2025 9:29 PM EDT - 05/18/2025 11:48 AM EST Hospital Encounter [facility] [address] [place] [address] Jessa Law MD Chapman, Steven B, Greg Armenta MD Oo, Yadana, MD Gerrard, Miranda E, MD Ramay, MD Jay Jay Avila, Wily R, DO Other chronic osteomyelitis of right foot (CMS/HCC) (Primary Dx); Diabetic foot ulcer with osteomyelitis; Uncontrolled type 2 diabetes mellitus with hyperglycemia, with long-term current use of insulin; Type 2 diabetes mellitus with diabetic peripheral angiopathy without gangrene, with long-term current use of insulin Discharge Disposition: Residential Facility 04/27/2025 Travel 04/19/2025 Refill [facility] [address] [place] [address] Divine Archer, MINING CONSULTANT Type 2 diabetes mellitus 02/27/2025 Refill [facility] [address] [place] [address] Iveth Hurd 02/27/2025 [facility] [address] [place] [address] Divine Archer, ADALGISA 02/21/2025 Refill [facility] [address] [place] [address] Pratibha Forde PA from Last 3 Months Immunizations Immunization Administration Dates Next Due Pneumococcal Conjugate PCV 13 12/24/2016 Pneumococcal Polysaccharide PPV23 04/26/2020 Family History Medical History Relation Name Comments [...] any time in the past 12 m [facility], were you homeless or living in a snf (including now)? No 04/28/2025 [facility] Utilities Answer Date Recorded In the [...] Mass Index 74.6 04/27/2025 10:46 PM EDT Plan of Treatment Upcoming Encounters Date Type Department Care Team (Late st Contact Info) Description 05/30/2025 2:40 PM EST Office Visit [facility] [address] 5th Floor [address] [place] [address] Sheila Marcano, PA [address] [place] [address] 06/14/2025 1:40 PM EST Office Visit Jac[facility] [address] [place] [address] Divine Archer P, MINING CONSULTANT [address] [place] [address] 06/22/2025 1:40 PM EST Office Visit [facility] [address] 5th Floor [address] [place] [address] Mary Viecnte MD [address] [facility] [address] [place] [address] Health Maintenance Due Date Last Done Comments [facility]-Medicare Annual Wellness (AWV) 1975 [facility]-/Child/Adol SDOH Screenings 1977 Diabetes: Dental Exam 1987 [facility]-DTaP,Tdap,and Td Vaccines (1 - Tdap) 1996 [facility]-Hepatitis B Vaccines (1 of 3 - 19+ 3-dose series) 1996 CT Colonography 2022 Colonoscopy 2022 FIT-DNA 2022 FIT 2022 FOBT 2022 Sigmoidoscopy 2022 [facility]-Colorectal Cancer Screening 2022 [id number] Vaccine (3 - 2024- season) 2025 02/22/2021, 01/25/2021 [facility]-Influenza Vaccine (#1) 2025 [facility]-Diabetes: Hemoglobin A1C 07/29/2025, 12/12/2024, 01/13/2024, Additional history exists [facility]-Depression Screening 09/13/2025 09/13/2024, 03/0 10/2024 [facility]- SDOH Screenings 10/27/2025 [facility]-Adult SDOH Screenings 10/27/2025 04/28/2025 [facility]-Pneumococcal Vaccine: Pediatrics (0 to 5 Years) and At-Risk Patients (6 to 49 Years) (3 of 3 - PCV20 or PCV21) 2027 04/26/2020, 12/24/2016 [facility]-Zoster Vaccines (1 of 2) 2027 [facility]-Obesity Intervention Completed 025, 12/12/2024, 09/13/2024, Additional history exists [facility]-HIV Screening Completed 04/27/2025 [facility]-Hepatitis C Screening Completed 04/27/2025 HPV Vaccines Aged Out No longer eligi [...] AUTO DIFFERENTIAL Routine 05/16/2025 4:08 AM EST MAGNESIUM, PLASMA Routine 05/16/2025 4:0 8 AM EST BASIC METABOLIC PANEL, PLASMA Routine 05/16/2025 4:08 AM EST PHOSPHORUS, PLASMA Routine 05/16/2025 4: 08 AM EST POCT GLUCOSE METER UNSOLICITED RESULTS Routine 05/15/2025 8:00 PM EST POCT GLUCOSE METER UNSOLICITED RESULTS Routine 05/15/2025 4:52 PM EST POCT GLUCOSE METER UNSOLICITED RESULTS Routine 05/15/2025 12:46 PM EST POCT GLUCOSE METER UNSOLICITED RESULTS Routine 05/15/2025 11:31 AM EST POCT GLUCOSE METER UNSOLICITED RESULTS Routine 05/15/2025 8:12 AM EST CBC WITH AUTO DIFFERENTIAL Routine 05/15/2025 2:24 AM EST MAGNESIUM, PLASMA Routine 05/15/2025 2:2 4 AM EST BASIC METABOLIC PANEL, PLASMA Routine 05/15/2025 2:24 AM EST PHOSPHORUS, PLASMA Routine 05/15/2025 2: 24 AM EST POCT GLUCOSE METER UNSOLICITED RESULTS Routine 05/14/2025 8:09 PM EST POCT GLUCOSE METER UNSOLICITED RESULTS Routine 05/14/2025 5:10 PM EST POCT GLUCOSE METER UNSOLICITED RESULTS Routine 05/14/2025 12:15 PM EST POCT GLUCOSE METER UNSOLICITED RESULTS Routine 05/14/2025 8:30 AM EST CBC WITH AUTO DIFFERENTIAL Routine 05/14/2025 1:45 AM EDT MAGNESIUM, PLASMA Routine 05/14/2025 1:4 5 AM EDT BASIC METABOLIC PANEL, PLASMA Routine 05/14/2025 1:45 AM EDT PHOSPHORUS, PLASMA Routine 05/14/2025 1: 45 AM EDT POCT GLUCOSE METER UNSOLICITED RESULTS Routine 05/13/2025 4:58 PM EDT POCT GLUCOSE METER UNSOLICITED RESULTS Routine 05/13/2025 11:37 AM EDT POCT GLUCOSE METER UNSOLICITED RESULTS Routine 05/13/2025 7:42 AM EDT CBC WITH AUTO DIFFERENTIAL Routine 05/13/2025 3:54 AM EDT MAGNESIUM, PLASMA Routine 05/13/2025 3:5 4 AM EDT BASIC METABOLIC PANEL, PLASMA Routine 05/13/2025 3:54 AM EDT PHOSPHORUS, PLASMA Routine 05/13/2025 3: 54 AM EDT POCT GLUCOSE METER UNSOLICITED RESULTS Routine 05/12/2025 7:40 PM EDT POCT GLUCOSE METER UNSOLICITED RESULTS Routine 05/12/2025 4:36 PM EDT POCT GLUCOSE METER UNSOLICITED RESULTS Routine 05/12/2025 11:30 AM EDT POCT GLUCOSE METER UNSOLICITED RESULTS Routine 05/12/2025 8:08 AM EDT CBC WITH AUTO DIFFERENTIAL Routine 05/12/2025 3:56 AM EDT MAGNESIUM, PLASMA Routine 05/12/2025 3:5 6 AM EDT BASIC METABOLIC PANEL, PLASMA Routine 05/12/2025 3:56 AM EDT PHOSPHORUS, PLASMA Routine 05/12/2025 3: 56 AM EDT POCT GLUCOSE METER UNSOLICITED RESULTS [...] AUTO DIFFERENTIAL Routine 05/11/2025 3:24 AM EDT MAGNESIUM, PLASMA Routine 05/11/2025 3:2 4 AM EDT BASIC METABOLIC PANEL, PLASMA Routine 05/11/2025 3:24 AM EDT PHOSPHORUS, PLASMA Routine 05/11/2025 3: 24 AM EDT POCT GLUCOSE METER UNSOLICITED RESULTS [...] UNSOLICITED RESULTS Routine 05/03/2025 7:27 PM EDT COMPREHENSIVE METABOLIC PANEL, PLASMA Timed 05/03/2025 6:22 PM EDT CREATINE KINASE, TOTAL, PLASMA Timed 05/03/2025 6:22 PM EDT POCT GLUCOSE METER UNSOLICITED RESULTS Routine 05/03/2025 5:30 PM EDT POCT GLUCOSE METER UNSOLICITED RESULTS Routine 05/03/2025 11:36 AM EDT POCT GLUCOSE METER UNSOLICITED RESULTS Routine 05/03/2025 8:09 AM EDT POCT GLUCOSE METER UNSOLICITED RESULTS Routine 05/03/2025 3:37 AM EDT HEPATITIS B CORE TOTAL AB (IGG AND IGM) Routine 05/03/2025 3:16 AM EDT HEPATITIS B SURFACE ANTIGEN Routine 05/03/2025 3:16 AM EDT HEPATITIS B SURFACE ANTIBODY, QUANTITATIVE Routine 05/03/2025 3:16 AM EDT HEPATITIS A ANTIBODY IGG Routine 05/03/2025 3:16 AM EDT CBC WITH AUTO DIFFERENTIAL Routine 05/03/2025 3:16 AM EDT BASIC METABOLIC PANEL, PLASMA Routine 05/03/2025 3:16 AM EDT MAGNESIUM, PLASMA Routine 05/03/2025 3:1 6 AM EDT PHOSPHORUS, PLASMA Routine 05/03/2025 3: 16 AM EDT POCT GLUCOSE METER UNSOLICITED RESULTS Routine 05/02/2025 8:48 PM EDT POCT GLUCOSE METER UNSOLICITED RESULTS Routine 05/02/2025 4:30 PM EDT NASOPHARYNGEAL RESPIRATORY PANEL Routine 05/02/2025 1:05 PM EDT POCT GLUCOSE METER UNSOLICITED RESULTS Routine 05/02/2025 12:08 PM EDT POCT GLUCOSE METER UNSOLICITED RESULTS Routine 05/02/2025 8:11 AM EDT POCT GLUCOSE METER UNSOLICITED RESULTS Routine 05/02/2025 4:01 AM EDT CBC WITH AUTO DIFFERENTIAL Routine 05/02/2025 3:10 AM EDT BASIC METABOLIC PANEL, PLASMA Routine 05/02/2025 3:10 AM EDT MAGNESIUM, PLASMA Routine 05/02/2025 3:1 0 AM EDT PHOSPHORUS, PLASMA Routine 05/02/2025 3: 10 AM EDT CREATINE KINASE, TOTAL, PLASMA Timed 05/02/2025 3:10 AM EDT POCT GLUCOSE METER [...] Other chronic osteomyelitis of right foot (CMS/HCC) PB POINT OF CARE IMAGING PLACEHOLDER Routine 05/01/2025 7:00 AM EDT TYPE AND SCREEN Routine 05/01/2025 6:49 AM EDT POCT GLUCOSE METER UNSOLICITED RESULTS Routine 05/01/2025 6:48 AM EDT CREATINE KINASE, TOTAL, PLASMA Timed 05/01/2025 2:14 AM EDT CBC WITH AUTO DIFFERENTIAL Routine 05/01/2025 2:14 AM EDT BASIC METABOLIC PANEL, PLASMA Routine 05/01/2025 2:14 AM EDT MAGNESIUM, PLASMA Routine 05/01/2025 2:1 4 AM EDT PHOSPHORUS, PLASMA Routine 05/01/2025 2: 14 AM EDT POC ULTRASOUND 05/01/2025 POCT GLUCOSE METER UNSOLICITED RESULTS Routine 04/30/2025 8:21 PM EDT POCT GLUCOSE METER UNSOLICITED RESULTS Routine 04/30/2025 4:19 PM EDT WOUND OSTOMY EVAL AND TREAT Routine 04/30/2025 2:37 PM EDT POCT GLUCOSE METER UNSOLICITED RESULTS Routine 04/30/2025 12:11 PM EDT POCT GLUCOSE METER UNSOLICITED RESULTS Routine 04/30/2025 8:18 AM EDT CBC WITH AUTO DIFFERENTIAL Routine 04/30/2025 3:19 AM EDT BASIC METABOLIC PANEL, PLASMA Routine 04/30/2025 3:19 AM EDT MAGNESIUM, PLASMA Routine 04/30/2025 3:1 9 AM EDT PHOSPHORUS, PLASMA Routine 04/30/2025 3: 19 AM EDT POCT GLUCOSE METER UNSOLICITED RESULTS Routine 04/29/2025 7:38 PM EDT POCT GLUCOSE METER UNSOLICITED RESULTS Routine 04/29/2025 5:21 PM EDT POCT GLUCOSE METER UNSOLICITED RESULTS Routine 04/29/2025 11:15 AM EDT POCT GLUCOSE METER UNSOLICITED RESULTS Routine 04/29/2025 7:13 AM EDT FOLATE, SERUM Routine 04/29/2025 3:04 AM EDT VITAMIN B12, SERUM Routine 04/29/2025 3: 04 AM EDT IRON & TOTAL IRON BINDING CAPACITY, PLASMA (INCLUDES TRANSFERRIN) Routine 04/29/2025 3:04 AM EDT FERRITIN, SERUM Routine 04/29/2025 3:04 AM EDT CORTISOL Routine 04/29/2025 3:04 AM EDT TSH Routine 04/29/2025 3:04 AM EDT HEMOGLOBIN A1C Routine 04/29/2025 3:04 AM EDT PHOSPHORUS, PLASMA Routine 04/29/2025 3: 04 AM EDT MAGNESIUM, PLASMA Routine 04/29/2025 3:0 4 AM EDT COMPREHENSIVE METABOLIC PANEL, PLASMA Routine 04/29/2025 3:04 AM EDT CBC WITH AUTO DIFFERENTIAL Routine 04/29/2025 3:04 AM EDT POCT GLUCOSE [...] RIGHT 3+ VIEWS STAT 11:13 PM EDT TYPE AND SCREEN STAT 04/27/2025 10:16 PM EDT BLOOD GAS PANEL, VENOUS STAT 04/27/2025 10:16 PM EDT BLOOD CULTURE (AEROBIC/ANAEROBIC SET) STAT 04/27/2025 10:16 PM EDT BLOOD CULTURE (AEROBIC/ANAEROBIC SET) STAT 04/27/2025 10:16 PM EDT CREATINE KINASE, TOTAL, PLASMA Add-On 04/27/2025 9:37 PM EDT PROCALCITONIN, PLASMA Add-On 04/27/2025 9:37 PM EDT SEDIMENTATION RATE, AUTOMATED STAT Add-on 04/27/2025 9:37 PM EDT MAGNESIUM, PLASMA STAT Add-on 04/27/2025 9:3 7 PM EDT BETA HYDROXYBUTYRIC ACID STAT Add-on 04/27/2025 9:37 PM EDT ED HIV 1/2 ANTIBODY/ANTIGEN SCREEN WITH REFLEX TO HIV I/II DIFFERENTIATION STAT 04/27/2025 9:37 PM EDT ED PROTOCOL HIV 1/2 ANTIBODY/ANTIGEN SCREEN W/REFLEX TO HIV 1/2 ANTIBODY DIFFERENTIATION STAT 04/27/2025 9:37 PM EDT HEPATITIS C ANTIBODY - ED W/REFLEX TO HCV QUANT PCR STAT 04/27/2025 9:37 PM EDT C-REACTIVE PROTEIN, PLASMA STAT 04/27/2025 9:37 PM EDT CBC WITH AUTO DIFFERENTIAL STAT 04/27/2025 9:37 PM EDT BASIC METABOLIC PANEL, PLASMA STAT 04/27/2025 9:37 PM EDT from Last 3 Months Results * (ABNORMAL) POCT glucose meter (05/18/2025 8:09 AM EST) Only the most recent of91 resultswithin the time period is included. [facility] POCT Glucose 124(H) 74 - 99 mg/dL 05/18/2025 8:11 AM EST [facility] Comment:Accuracy of a glucos e result [...] 05/18/2025 8:11 AM EST [facility] Motion Picture Photographer ID Char Hinojosa 05/18/2025 8:11 AM EST HEALTHCARE LAB Device ID [id number] 05/18/2025 8:11 AM EST [facility] Specimen Type POC Capillary 05/18/2025 8:11 AM EST [facility] Blood Capillary blood specimen / Unknown 05/18/2025 8:09 AM EST 05/18/2025 8:11 AM EST us Umar R Jay Jay DO LAB POINT OF CARE TE ST DOCKED DEVICE UNSOLICITED RESULTS Final Result [facility] [address] [place], [place] [id number] * ECHO, ADULT TRANSTHORACIC COMPLETE W/ CONTRAST (05/17/2025 9:51 AM EST) BSA 3.30 m2 HANK ISCV Height 182.9 HANK ISCV Weight 247.2 HANK ISCV LVIDd 51 mm HANK ISCV LVIDs 40 mm HANK ISCV IVSd 12 mm AHNK ISCV LVPWd 12 mm HANK ISCV LV [...] Ao Diam 37 mm HANK ISCV PA MN(ACCEL) 24.6 mmHg HANK ISCV LV mean PG [...] is no recent study available for direct [id number] comparison. Left Ventricle The left ventricle is [...] is no recent study available for direct [id number] comparison. [facility] CV ECHO PROCEDURES Final Result * ECG Adult (05/16/2025 3:33 PM EST) Only the most recent of6 resultswithin the time period is included. EKG DIAGNOSIS CLASS Abnormal MUSE ECG Ventricular Rate 58 BPM MUSE ECG Atrial Rate 58 BPM MUSE ECG MN Interval 184 ms MUSE ECG QRSD Interval 158 ms MUSE ECG QT Interval 496 ms MUSE ECG QTC Interval 486 ms MUSE ECG P [place] 30 degrees MUSE ECG R [place] -35 degrees MUSE ECG T Wave [place] -5 degrees MUSE ECG Diagnosis Sinus bradycardia [...] 3:33 PM EST 05/18/2025 12:15 AM EST [facility] R Jay Jay DO ECG ORDERABLES Final Result MUSE ECG * (ABNORMAL) CBC and Differential (05/16/2025 4:08 AM EST) Only the most recent of12 resultswithin the time period is included. WBC Count 7.97 3.70 - 10.30 10*3/uL LAB HEMATOLOGY METHOD 05/16/2025 4:26 AM EST [facility] RBC Count 4.27(L) 4.60 - 6.10 10*6/uL LAB HEMATOLOGY METHOD 05/16/2025 4:26 AM EST [facility] HGB 9.5(L) 13.7 - 17.5 g/dL LAB HEMATOLOGY METHOD 05/16/2025 4:26 AM EST [facility] HCT 31.6(L) 40.0 - 51.0 % LAB HEMATOLOGY METHOD 05/16/2025 4:26 AM EST [facility] Platelet Count 264 155 - 369 10*3/uL LAB HEMATOLOGY METHOD 05/16/2025 4:26 AM [facility] MCV 74(L) 79 - 98 fL LAB HEMATOLOGY METHOD 05/16/2025 4:26 AM [facility] MCH 22.2(L) 26.0 - 32.0 pg LAB HEMATOLOGY METHOD 05/16/2025 4:26 AM [facility] MCHC 30.1(L) 30.7 - 35.5 g/dL LAB HEMATOLOGY METHOD 05/16/2025 4:26 AM [facility] RDW 17.9(H) 11.5 - 14.5 % LAB HEMATOLOGY METHOD 05/16/2025 4:26 AM [facility] MPV 9.2 8.8 - 12.5 fL LAB HEMATOLOGY METHOD 05/16/2025 4:26 AM [facility] nRBC 0.0 <=0.0 per 100 WBCs LAB HEMATOLOGY METHOD 05/16/2025 4:26 AM [facility] Differential Type Automated LAB HEMATOLOGY METHOD 05/16/2025 4:26 AM [facility] Neutrophils % 67 % LAB HEMATOLOGY METHOD 05/16/2025 4:26 AM [facility] Lymphocytes % 16 % LAB HEMATOLOGY METHOD 05/16/2025 4:26 AM [facility] Monocytes % 12 % LAB HEMATOLOGY METHOD 05/16/2025 4:26 AM [facility] Eosinophils % 3 % LAB HEMATOLOGY METHOD 05/16/2025 4:26 AM [facility] Basophils % 1 % LAB HEMATOLOGY METHOD 05/16/2025 4:26 AM [facility] Immature Granulocytes % 1 % LAB HEMATOLOGY METHOD 05/16/2025 4:26 AM [facility] Neutrophils Absolute 5.39 1.60 - 6.10 10*3/uL LAB HEMATOLOGY METHOD 05/16/2025 4:26 AM [facility] Lymphocytes Absolute 1.30 1.20 - 3.90 10*3/uL LAB HEMATOLOGY METHOD 05/16/2025 4:26 AM [facility] Monocytes Absolute 0.93(H) 0.30 - 0.90 10*3/uL LAB HEMATOLOGY METHOD 05/16/2025 4:26 AM [facility] Eosinophils Absolute 0.26 0.00 - 0.50 10*3/uL LAB HEMATOLOGY METHOD 05/16/2025 4:26 AM EST [facility] Basophils Absolute 0.05 0.00 - 0.10 10*3/uL LAB HEMATOLOGY METHOD 05/16/2025 4:26 AM EST [facility] Immature Granulocytes Absolute 0.04 0.00 - 0.06 10*3/uL LAB HEMATOLOGY METHOD 05/16/2025 4:26 AM EST [facility] Blood Venous blood specimen / Unknown Venipuncture / Unknown 05/16/2025 4:08 AM EST 05/16/2025 4:17 AM EST Narrative [facility] - 05/16/2025 4:26 AM EST Therapeutic decision making should be based on absolute values, rather than percentages. us Selin Lee MD LAB BLOOD ORDERABLES Final Re sult Performing Organization Address City/[facility]/ZIP Co de Phone Number [facility] [address] [place] [address] * Phosphorus, Plasma (05/16/2025 4:08 AM EST) Only the most recent of11 resultswithin the time period is included. Phosphorus, Plasma 3.7 2.5 - 4.5 mg/dL 05/16/2025 4:48 AM EST [facility] Blood Venous blood specimen / Unknown Venipuncture / Unknown 05/16/2025 4:08 AM EST 05/16/2025 4:16 AM EST us Selin Lee MD LAB BLOOD ORDERABLES Final Re sult [facility] [address] [place] [address] * (ABNORMAL) Magnesium, Plasma (05/16/2025 4:08 AM EST) Only the most recent of13 resultswithin the time period is included. Magnesium, Plasma 1.8(L) 1.9 - 2.4 mg/dL 05/16/2025 4:48 AM EST [facility] Blood Venous blood specimen / Unknown Venipuncture / Unknown 05/16/2025 4:08 AM EST 05/16/2025 4:16 AM EST us Selin Lee MD LAB BLOOD ORDERABLES Final Re sult [facility] [address] [place] [address] * (ABNORMAL) Basic Metabolic Panel, Plasma (05/16/2025 4:08 AM EST) Only the most recent of12 resultswithin the time period is included. Glucose, Plasma 168(H) 74 - 99 mg/dL 05/16/2025 4:48 AM EST [facility] BUN, Plasma 19 7 - 21 mg/dL 05/16/2025 4:48 AM EST [facility] Creatinine, Plasma 0.86 0.70 - 1.20 mg/dL 05/16/2025 4:48 AM EST [facility] BUN/Creatinine Ratio 22 05/16/2025 4:48 AM EST [facility] Sodium, Plasma 131(L) 136 - 145 mmol/L 05/16/2025 4:48 AM EST [facility] Potassium, Plasma 3.6 3.6 - 4.9 mmol/L 05/16/2025 4:48 AM EST [facility] Chloride, Plasma 88(L) 97 - 107 mmol/L 05/16/2025 4:48 AM EST [facility] CO2, Plasma 34(H) 22 - 29 mmol/L 05/16/2025 4:48 AM EST [facility] Anion Gap 9 6 - 16 mmol/L 05/16/2025 4:48 AM EST [facility] Total Calcium, Plasma 9.3 8.9 - 10.2 mg/dL 05/16/2025 4:48 AM EST [facility] eGFRcr 107.5 mL/min/1.7 3m*2 05/16/2025 4:48 AM EST [facility] Comment:Reported eGFRcr in m L/min/1.73m2 is based the CKD-EPI 2020 equation that does not use a race coefficient. Blood Venous blood specimen / Unknown Venipuncture / Unknown 05/16/2025 4:08 AM EST 05/16/2025 4:16 AM EST Selin Lee MD LAB BLOOD ORDERABLES Final Re sult Performing Organization Address City/[facility]/ZIP Co de Phone Number [facility] [address] [place] [address] * PSA, diagnostic (05/06/2025 12:27 PM EDT) PSA, Diagnostic, Serum 0.03 0.00 - 2.50 ng/mL 05/06/2025 1:10 PM EDT [facility] Blood Venous blood specimen / Unknown Venipuncture / Unknown 05/06/2025 12:27 PM EDT 05/06/2025 12:33 PM EDT Narrative [facility] - 05/06/2025 1:10 PM EDT Performed by Bella electrochemiluminescent immunoassay which is standardized against the PSA [place] Reference Standard (WHO 96/670). Results obtained with different test methods or kits cannot be used interchangeably. Diane Guzman MD LAB BLOOD ORDERABLES Final Result Performing Organization Address [facility] Co de Phone Number [facility] [address] [place] [address] * Creatine Kinase (CK), Total (05/03/2025 6:22 PM EDT) Only the most recent of4 resultswithin the time period is included. Pathologist [facility] Creatine Kinase, Plasma 54 49 - 320 U/L 05/03/2025 7:13 PM EDT [facility] Blood Venous blood specimen / Unknown Venipuncture / Unknown 05/03/2025 6:22 PM EDT 05/03/2025 6:38 PM EDT Diane Guzman MD LAB BLOOD ORDERABLES Final Result Performing Organization Address City/[facility]/ZIP Co de Phone Number [facility] [address] [place] [address] * (ABNORMAL) Comprehensive metabolic panel (05/03/2025 6:22 PM EDT) Only the most recent of2 resultswithin the time period is included. Glucose, Plasma 290(H) 74 - 99 mg/dL 05/03/2025 7:13 PM EDT [facility] BUN, Plasma 14 7 - 21 mg/dL 05/03/2025 7:13 PM EDT [facility] Creatinine, Plasma 0.71 0.70 - 1.20 mg/dL 05/03/2025 7:13 PM EDT [facility] BUN/Creatinine Ratio 20 05/03/2025 7:13 PM EDT [facility] Sodium, Plasma 133(L) 136 - 145 mmol/L 05/03/2025 7:13 PM EDT [facility] Potassium, Plasma 3.6 3.6 - 4.9 mmol/L 05/03/2025 7:13 PM EDT [facility] Chloride, Plasma 87(L) 97 - 107 mmol/L 05/03/2025 7:13 PM EDT [facility] CO2, Plasma 37(H) 22 - 29 mmol/L 05/03/2025 7:13 PM EDT [facility] Anion Gap 9 6 - 16 mmol/L 05/03/2025 7:13 PM EDT [facility] Total Calcium, Plasma 9.4 8.9 - 10.2 mg/dL 05/03/2025 7:13 PM EDT [facility] Total Protein 8.0(H) 6.3 - 7.9 g/dL 05/03/2025 7:13 PM EDT [facility] Albumin, Plasma 3.6 3.5 - 5.2 g/dL 05/03/2025 7:13 PM EDT [facility] AST, Plasma 18 10 - 50 U/L 05/03/2025 7:13 PM EDT [facility] ALT, Plasma 12 10 - 50 U/L 05/03/2025 7:13 PM EDT [facility] Alkaline Phosphatase, Plasma 64 40 - 115 U/L 05/03/2025 7:13 PM EDT [facility] Total Bilirubin, Plasma 0.7 0.2 - 1.1 mg/dL 05/03/2025 7:13 PM EDT [facility] eGFRcr 113.9 mL/min/1.7 3m*2 05/03/2025 7:13 PM EDT [facility] Comment:Reported eGFRcr in m L/min/1.73m2 is based the CKD-EPI 2020 equation that does not use a race coefficient. Blood Venous blood specimen / Unknown Venipuncture / Unknown 05/03/2025 6:22 PM EDT 05/03/2025 6:38 PM EDT us Diane Guzman MD LAB BLOOD ORDERABLES Final Result Performing Organization Address [facility] [place] [address] * Hepatitis B Surface Antibody, Quantitative (05/03/2025 3:16 AM EDT) Hepatitis B Surface Antibody, Quantitative <8.00 NonReactiv e: <8, Grayzone: 8 - <12, Reactive: >= 12 mIU/mL 05/03/2025 4:28 AM EDT [facility] Comment: Nonreactive. Individual is considered not immune to HBV infection. Blood Venous blood specimen / Unknown Venipuncture / Unknown 05/03/2025 3:16 AM EDT 05/03/2025 3:24 AM EDT Result Shannon Guzman MD LAB BLOOD ORDERABLES Final Result Performing Organization Address City/[facility] Co de Phone Number [facility] [address] [place] [address] * Hepatitis A Antibody IgG (05/03/2025 3:16 AM EDT) Hepatitis A Antibody IgG Negative Negative 05/03/2025 4:28 AM EDT [facility] Blood Venous blood specimen / Unknown Venipuncture / Unknown 05/03/2025 3:16 AM EDT 05/03/2025 3:24 AM EDT Result Shannon Guzman MD LAB BLOOD ORDERABLES Final Result [facility] [address] [place] [address] * Hepatitis B Core Total Antibody IgG,IgM (05/03/2025 3:16 AM EDT) Pathologist [facility] Hepatitis B Core Total Antibody IgG,IgM Negative Negative 05/03/2025 4:28 AM EDT [facility] Blood Venous blood specimen / Unknown Venipuncture / Unknown 05/03/2025 3:16 AM EDT 05/03/2025 3:24 AM EDT us Diane Guzman MD LAB BLOOD ORDERABLES Final Result Performing Organization Address City/[facility]/ZIP Co de Phone Number [facility] [address] [place] [address] * Hepatitis B Surface Antigen (05/03/2025 3:16 AM EDT) Pathologist [facility] Hepatitis B Surf Antigen Negative Negative 05/03/2025 4:28 AM EDT [facility] Blood Venous blood specimen / Unknown Venipuncture / Unknown 05/03/2025 3:16 AM EDT 05/03/2025 3:24 AM EDT us Diane Guzman MD LAB BLOOD ORDERABLES Final Result Performing Organization Address City/[facility]/ZIP Co de Phone Number [facility] [address] [place] [address] * Nasopharyngeal Respiratory Panel (05/02/2025 1:05 PM EDT) [facility] Nasopharyngeal Respiratory PCR Interpretation Not Detected for all analytes Not Detected for all analytes 05/02/2025 3:14 PM EDT [facility] Swab Nasopharyngeal structure / Unknown Non-blood Collection / Unknown 05/02/2025 1:05 PM EDT 05/02/2025 1:12 PM EDT Narrative [facility] - 05/02/2025 3:14 PM EDT [...] Respiratory PCR Panel is performed using the Grolex instrument. This test is FDA approved for use with Nasopharyngeal swabs only. This test is used for clinical purposes. It should not be regarded as investigational or for research. The [facility] is certified under the Clinical Laboratory Improvement Amendments of 1988 (CLIA-88) as qualified to perform high complexity clinical laboratory testing. Diane Guzman MD LAB MICROBIOLOGY - GENERAL ORDERABLES Final Result [facility] [address] [place] [address] * Surgical Pathology Exam (05/01/2025 8:13 AM EDT) Case Report Surgical Pathology Case: [id number] Authorizing Provider: Mary Vicente MD Collected: 05/01/2025 0813 Ordering Location: [facility] Received: 05/01/2025 0917 Pathologist: Vidya Ly MD Specimens: A) - Toe, Right, R 5th toe B) - Toe, Right, R 5th toe margin 05/09/2025 9:56 AM EDT [facility] Correction History Case amended to provide diagnosis after final decal sections received 05/09/2025 9:56 AM EDT [facility] Comment:These results have b een appended to a previously final verified report. Final Diagnosis A. RIGHT FIFTH TOE, AMPUTATION: - ULCER WITH SUPPURATIVE INFLAMMATION, GANGRENOUS NECROSIS, AND UNDERLYING ACUTE OSTEOMYELITIS. B. RIGHT FIFTH TOE MARGIN, RESECTION: - NO ACUTE OSTEOMYELITIS IDENTIFIED. 05/09/2025 9:56 AM EDT [facility] Amendment electronically signed by Vidya Ly MD on 05/09/2025 at 0956 EDT at 1233 EDT Comment:Corrected result: Pr eviously reported as [Previous value contains rich text formatting which cannot be displayed here] (see Result History) on 05/05/2025 at 1233 EDT. 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 R 5TH [...] The wound extends into the underlying bone. Plush Weaver sections are submitted as follows: A1-A2: Necrotic lateral skin A3: Bone underlying gaping wound, following decalcification A4: Bone margin, following decalcification BLAS Kw[facility] ([facility]) B. R 5TH TOE MARGIN The specimen is received fresh and placed in formalin, labeled R 5th toe MARGIN , and consists of a 2.8 x 2.8 x 0.6 cm aggregate of hemorrhagic bony fragments. The specimen is entirely submitted in cassette B1, following decalcification. Cold Time: 25m BLAS Kwok ([facility]) 05/09/2025 9:56 AM EDT [facility] Note: 05/09/2025 9:56 AM EDT [facility] Comment:Corrected result: Pr eviously reported [...] LAB PATHOLOGY ORDERABLES Edited Result - Final [facility] [address] [place] [address] * PB POINT OF CARE IMAGING PLACEHOLDER [...] monitoring: continuous pulse ox, heart rate and surveillance monitor Block type: adductor canal and popliteal [...] Spicer MD ANESTHESIA ORDERABLES Final R esult * Type and Screen (05/01/2025 6:49 AM EDT) Only the most recent of2 resultswithin the time period is included. ABO/Rh O Positive 05/01/2025 6:53 AM EDT [facility] Antibody Screen Negative 05/01/2025 6:53 AM EDT [facility] Specimen Expiration 05/04/2025 23:59 05/01/2025 6:53 AM EDT [facility] Blood Venous blood specimen / Unknown Venipuncture / Unknown 05/01/2025 6:49 AM EDT 05/01/2025 6:53 AM EDT us Yanna Calhoun DO LAB BLOOD BANK TEST ORDERA BLES Final Result [facility]LO[facility] BANK [address] [place] [address], [place] * POC Imaging (05/01/2025) Anatomical Region Laterality Modality Pelvis Other 05/01/2025 us External Provider IMG POINT OF CARE ULTRASOUND E dited Result - Final * (ABNORMAL) Iron & Total Iron Binding Capacity, Plasma (Includes Transferrin) (04/29/2025 3:04 AM EDT) Iron, Plasma 36(L) 50 - 170 ug/dL 04/29/2025 3:55 AM EDT [facility] Transferrin, Plasma 197(L) 200 - 360 mg/dL 04/29/2025 3:55 AM EDT [facility] Total Iron Binding Capacity, Plasma 246 240 - 450 ug/mL 04/29/2025 3:55 AM EDT [facility] Transferrin Saturation 15 14 - 50 % 04/29/2025 3:55 AM EDT [facility] Blood Venous blood specimen / Unknown Venipuncture / Unknown 04/29/2025 3:04 AM EDT 04/29/2025 3:19 AM EDT us Dirk A Amish MINING CONSULTANT, DNP LAB BLOOD ORDERABLES Fin al Result [facility] [address] [place] [address] * TSH (04/29/2025 3:04 AM EDT) Thyroid Stimulating Hormone, Plasma 1.58 0.40 - 4.20 uIU/mL 04/29/2025 3:55 AM EDT [facility] Blood Venous blood specimen / Unknown Venipuncture / Unknown 04/29/2025 3:04 AM EDT 04/29/2025 3:19 AM EDT luis Maurice Leisa SEALSN, DNP LAB BLOOD ORDERABLES Fin al Result Performing Organization Address City/[facility] Co de Phone Number [facility] [address] [place] [address] * (ABNORMAL) Hemoglobin A1c (04/29/2025 3:04 AM EDT) [facility] Hemoglobin A1c 8.9(H) <5.7 % 04/29/2025 9:40 AM EDT [facility] Blood Venous blood specimen / Unknown Venipuncture / Unknown 04/29/2025 3:04 AM EDT 04/29/2025 3:19 AM EDT Narrative [facility] - 04/29/2025 9:40 AM EDT [...] ORDERABLES Fin al Result Performing Organization Address City/[facility]/ZIP Co de Phone Number [facility] [address] [place] [address] * Folate (04/29/2025 3:04 AM EDT) Pathologist [facility] Folate, Serum 10.5 >4.6 ng/mL 04/29/2025 4:05 AM EDT [facility] Blood Venous blood specimen / Unknown Venipuncture / Unknown 04/29/2025 3:04 AM EDT 04/29/2025 3:20 AM EDT us Sy De La Fuente APRN, DENISE LAB BLOOD ORDERABLES Fin al Result Performing Organization Address City/[facility]/ZIP Co de Phone Number [facility] [address] [place] [address] * Ferritin (04/29/2025 3:04 AM EDT) Ferritin, Serum 40 20 - 400 ng/mL 04/29/2025 4:06 AM EDT [facility] Blood Venous blood specimen / Unknown Venipuncture / Unknown 04/29/2025 3:04 AM EDT 04/29/2025 3:20 AM EDT us Sy De La Fuente APRN, DENISE LAB BLOOD ORDERABLES Fin al Result Performing Organization Address [facility] Co de Phone Number [facility] [address] [place] [address] * Vitamin B12 (04/29/2025 3:04 AM EDT) Vitamin B12, Serum 338 210 - 1,033 pg/mL 04/29/2025 4:06 AM EDT [facility] Blood Venous blood specimen / Unknown Venipuncture / Unknown 04/29/2025 3:04 AM EDT 04/29/2025 3:20 AM EDT us Sy De La Fuente APRN, DENISE LAB BLOOD ORDERABLES Fin al Result Performing Organization Address City/[facility]/ZIP Co de Phone Number [facility] [address] [place] [address] * Cortisol (04/29/2025 3:04 AM EDT) Cortisol 2.80 Before 10am: 3.7 - 19.4. After 5pm: 2.9 - 17.3 ug/dL 04/29/2025 4:22 AM EDT [facility] Comment:Testing performed on [employer], standardized against PRISON Reference Standard concentration values assigned by LC-MS/MS and verified by BCR 192 and BCR 193 certified reference materials. Blood Venous blood specimen / Unknown Venipuncture / Unknown 04/29/2025 3:04 AM EDT 04/29/2025 3:19 AM EDT us Sy De La Fuente MINING CONSULTANT, DNP LAB REF LAB BLOOD AND FL UID ORD Final Result [facility] [address] [place] [address] * VAS Ankle Brachial Index - GABBI [...] are demonstrated at the levels of the PERSONNEL WORKER and DPA. Segmental pressures are within normal limits with a PERSONNEL WORKER GABBI of 1.1 (172 mmHg) and a DPA GABBI of 1.0 (149 mmHg). Digit pressures are of 122 mmHg. Left: Multiphasic waveforms are demonstrated at the levels of the PERSONNEL WORKER and DPA. Segmental pressures are within normal limits with a PERSONNEL WORKER GABBI of 1.1 (164 mmHg) and a DPA GABBI of 1.0 (153 mmHg). Digit pressures are of 151 mmHg. Procedure Note Chris Schaefer MD - 04/28/2025 CLINICAL INDICATION: Diabetic foot ulcer TECHNIQUE: Non-invasive, continuous wave Doppler exam with segmental pressures andspectral analysis of the lower extremity was performed. COMPARISON: None. FINDINGS: Right: Multiphasic waveforms are demonstrated at the levels of the PERSONNEL WORKER andDPA. Segmental pressures are within normal limits with a PERSONNEL WORKER GABBI of 1.1(172 mmHg) and a DPA GABBI of 1.0 (149 mmHg). Digit pressures are of 122mmHg. Left: Multiphasic waveforms are demonstrated at the levels of the PERSONNEL WORKER andDPA. Segmental pressures are within normal limits with a PERSONNEL WORKER GABBI of 1.1(164 mmHg) and a [...] on04/28/2025 4:14 PM Sy De La Fuente MINING CONSULTANT, DNP CV VASCULAR PROCEDURES F inal Result * Multi Drug Resistance Test (04/28/2025 1:44 PM EDT) Culture No Multi Drug Resistant Organisms Isolated 04/29/2025 2:32 PM EDT [facility] Swab (Nares and Saba Rectal) Non-blood Collection / Unknown 04/28/2025 1:44 PM EDT 04/28/2025 2:15 PM EDT Narrative [facility] - 04/29/2025 2:32 PM EDT [...] AL ORDERABLES Final Result Performing Organization Address City/[facility]/ZIP Co de Phone Number [facility] [address] [place] [address] * Lavender Top (04/28/2025 8:13 AM EDT) Extra Hold for add-ons 04/28/2025 11:[address] [facility] Comment:Auto resulted. Blood Venous blood specimen / Unknown 04/28/2025 8:13 AM EDT 04/28/2025 8:19 AM EDT Marjorie Myers MD LAB BLOOD ORDERABLES Final Resul t Performing Organization Address [facility] [place] [address] * Light Green Top (04/28/2025 8:13 AM EDT) Extra Hold for add-ons 04/28/2025 11:[address] [facility] Comment:Auto resulted. Blood Venous blood specimen / Unknown 04/28/2025 8:13 AM EDT 04/28/2025 8:19 AM EDT Marjorie Myers MD LAB BLOOD ORDERABLES Final Resul t Performing Organization Address City/[facility] Co de Phone Number [facility] [address] [place] [address] * APTT (04/28/2025 8:13 AM EDT) aPTT 32 25 - 35 sec 04/28/2025 8:33 AM EDT [facility] Blood Venous blood specimen / Unknown Venipuncture / Unknown 04/28/2025 8:13 AM EDT 04/28/2025 8:18 AM EDT us Sy De La Fuente APRN, DNP LAB BLOOD ORDERABLES Fin al Result Performing Organization Address [facility] de Phone Number [facility] [address] [place] [address] * (ABNORMAL) PT/INR (04/28/2025 8:13 AM EDT) Prothrombin Time 17.5(H) 12.0 - 14.3 sec 04/28/2025 8:[address] [facility] INR 1.4(H) 0.9 - 1.1 04/28/2025 8:33 AM EDT [facility] Blood Venous blood specimen / Unknown Venipuncture / Unknown 04/28/2025 8:13 AM EDT 04/28/2025 8:18 AM EDT Narrative [facility] - 04/28/2025 8:33 AM EDT OPTIMAL INR RANGES FOR PATIENT ON ORAL ANTICOAGULANT THERAPY Prevention of venous thromboembolism INR 2.0 to 3.0 In patients with heart disease: Atrial fibrillation INR 2.0 to 3.0 Valvular heart disease INR 2.0 to 3.0 Tissue heart valves INR 2.0 to 3.0 Mechanical prosthetic valves INR 2.5 to 3.5 Prevention of recurrent LA INR 2.5 to 3.5 us Sy De La Fuente APRN, DENISE LAB BLOOD ORDERABLES Fin deirdre Result Performing Organization Address [facility] Co de Phone Number [facility] [address] [place] [address] * CT Foot Right w IV Contrast [...] MD IMG XR PROCEDURES Final Result * Blood Culture (Aerobic/Anaerobet Set) (04/27/2025 10:16 PM EDT) Only the most recent of2 resultswithin the time period is included. Culture No growth at day 5 05/03/2025 12:01 AM EDT [facility] Blood Venous blood specimen / Unknown Venipuncture / Unknown 04/27/2025 10:16 PM EDT 04/27/2025 10:53 PM EDT us Jessa Law MD LAB MICROBIOLOGY - GENERAL SANYA DOMINGUEZ Final Result [facility] [address] [place] [address] * (ABNORMAL) Blood gas, venous (04/27/2025 10:16 PM EDT) pH, Venous 7.47(H) 7.32 - 7.43 LAB HEMATOLOGY METHOD 04/27/2025 10:21 PM EDT [facility] pCO2, Venous 50 40 - 55 mmHg LAB HEMATOLOGY METHOD 04/27/2025 10:21 PM EDT [facility] pO2, Venous 30 25 - 40 mmHg LAB HEMATOLOGY METHOD 04/27/2025 10:21 PM EDT [facility] SO2, Measured, Venous 52(L) 65 - 80 % LAB HEMATOLOGY METHOD 04/27/2025 10:21 PM EDT [facility] Base Excess, Venous 11.6(H) -2.0 - 3.0 mmol/L LAB HEMATOLOGY METHOD 04/27/2025 10:21 PM EDT [facility] Bicarbonate, Calculated, Venous 37(H) 22 - 26 mmol/L LAB HEMATOLOGY METHOD 04/27/2025 10:21 PM EDT [facility] Hematocrit, Whole Blood 30.1(L) 40.0 - 51.0 % LAB HEMATOLOGY METHOD 04/27/2025 10:21 PM EDT [facility] Sodium, Whole Blood 136 136 - 145 mmol/L LAB HEMATOLOGY METHOD 04/27/2025 10:21 PM EDT [facility] Potassium, Whole Blood 2.8(L) 3.6 - 4.9 mmol/L LAB HEMATOLOGY METHOD 04/27/2025 10:21 PM EDT [facility] Chloride, Whole Blood 88(L) 97 - 107 mmol/L LAB HEMATOLOGY METHOD 04/27/2025 10:21 PM EDT [facility] Glucose, Whole Blood 131(H) 74 - 99 mg/dL LAB HEMATOLOGY METHOD 04/27/2025 10:21 PM EDT [facility] Lactate, Venous, Whole Blood 2.0 0.5 - 2.2 mmol/L LAB HEMATOLOGY METHOD 04/27/2025 10:21 PM EDT [facility] Ionized Calcium, Whole Blood 4.2(L) 4.6 - 5.1 mg/dL LAB HEMATOLOGY METHOD 04/27/2025 10:21 PM EDT [facility] Blood Venous blood specimen / Unknown Venipuncture / Unknown 04/27/2025 10:16 PM EDT 04/27/2025 10:20 PM EDT Jessa Law MD LAB BLOOD ORDERABLES Final Resu lt Performing Organization Address [facility]/ZIP Co de Phone Number [facility] [address] [place] [address] * ED HIV 1/2 Antibody/Antigen Screen w/Reflex to HIV 1/2 Differentiation (04/27/2025 9:37 PM EDT) HIV 1 & 2 Antibody/Antigen Screen Non Reactive Non Reactive 04/27/2025 10:41 PM EDT [facility] Comment:Screening for HIV 1 & 2 antibodies, and P24 antigen is NONREACTIVE. No confirmatory testing is required. Blood Venous blood specimen / Unknown Venipuncture / Unknown 04/27/2025 9:37 PM EDT 04/27/2025 10:00 PM EDT Pool Jean MD LAB BLOOD ORDERABLES Final Res ult Performing Organization Address [facility]/ZIP Co de Phone Number [facility] [address] [place] [address] * Beta-Hydroxybutyric Acid (04/27/2025 9:37 PM EDT) Beta-Hydroxybut yric Acid, Plasma 0.23 <=0.27 mmol/L 04/27/2025 10:[address] [facility] Blood Venous blood specimen / Unknown Venipuncture / Unknown 04/27/2025 9:37 PM EDT 04/27/2025 9:40 PM EDT Jessa Law MD LAB BLOOD ORDERABLES Final Resu lt Performing Organization Address City/[facility]/ZIP Co de Phone Number [facility] [address] [place] [address] * (ABNORMAL) Procalcitonin (04/27/2025 9:37 PM EDT) Procalcitonin, Plasma 0.11(H) <0.09 ng/mL 04/28/2025 8:36 AM EDT [facility] Blood Venous blood specimen / Unknown Venipuncture / Unknown 04/27/2025 9:37 PM EDT 04/27/2025 9:40 PM EDT Narrative [facility] - 04/28/2025 8:36 AM EDT [...] predict 28 day mortality risk. Please consult [email or web address] for more information. Test performed at [facility]. us Sy De La Fuente APRN, DNP LAB BLOOD ORDERABLES Fin al Result [facility] [address] [place] [address] * Hepatitis C Antibody - ED (04/27/2025 9:37 PM EDT) Hepatitis C Antibody Negative Negative 04/27/2025 10:41 PM EDT [facility] Blood Venous blood specimen / Unknown Venipuncture / Unknown 04/27/2025 9:37 PM EDT 04/27/2025 10:00 PM EDT us Pool Jean MD LAB BLOOD ORDERABLES Final Res ult [facility] [address] [place] [address] * (ABNORMAL) Sed rate, automated (04/27/2025 9:37 PM EDT) Sedimentation Rate >111(H) <15 mm/hr 2024 11:10 PM EDT [facility] Blood Venous blood specimen / Unknown Venipuncture / Unknown 04/27/2025 9:37 PM EDT 04/27/2025 9:40 PM EDT us Jessa Law MD LAB BLOOD ORDERABLES Final Resu lt Performing Organization Address [facility]/ZIP Co de Phone Number [facility] [address] [place] [address] * (ABNORMAL) C-reactive protein (04/27/2025 9:37 PM EDT) CRP, Plasma 82.6(H) <=8.0 mg/L 04/27/2025 10:03 PM EDT [facility] Blood Venous blood specimen / Unknown Venipuncture / Unknown 04/27/2025 9:37 PM EDT 04/27/2025 9:40 PM EDT Narrative [facility] - 04/27/2025 10:03 PM EDT This CRP test is appropriate for assessment of infection, systemic inflammation and/or tissue injury. To assess cardiovascular disease risk order high sensitivity CRP (CRPH). us Pool Jean MD LAB BLOOD ORDERABLES Final Res ult Performing Organization Address [facility] Co de Phone Number [facility] [address] [place] [address] from Last 3 Months Insurance [facility] [employer] Advance Directives * Full Code (Latest Code Status on File) Date Activated Date Inactivated Comments 04/28/2025 7:06 AM 05/18/2025 1:53 PM Question Answer Comments I have reviewed the capacity from the link above and, if needed, have updated to appropriate status: Yes * Full Code Date Activated Date Inactivated Comments 12/12/2024 11:07 PM 12/17/2024 3:22 PM Question Answer Comments I have reviewed the capacity from the link above and, if needed, have updated to appropriate status: Yes Care Teams Clothing Presser Relationship Specialty Start Date End Date Malcolm Hayward APRN [address] [place] [id number] PCP - General 09/21/23
--- OUTSIDE RECORDS SUMMARY | 2025-05-20 18:08 | XMS_ITS | Encounter Summary ---
Author Organization [facility] Address [address] [id number] Care Team Providers Care Electrostatic Painter Name Role Phone Malcolm Hayward APRN Primary Care Provider [phone] Encounter Details Date Type Department Care Team (Latest Contact Info) Description 05/18/2025 Travel Social History Tobacco Use Types Packs/Day [...] in a senior living (including now)? No 04/28/2025 [facility] Utilities Answer Date Recorded In the [...] Ravi RN documented as of this encounter Plan of Treatment Upcoming Encounters Date Type Department Care Team (Late st Contact Info) Description 05/30/2025 2:40 PM EST Office Visit [place] [facility] [address] [facility] 5th Floor [address] [place] [id number] Sheila Marcano, BLAS [address] [place] [address] 06/14/2025 1:40 PM EST Office Visit [facility] Endocrinology [address] [place] [address] Divine Archer, ADALGISA [address] [place] [address] 06/22/2025 1:40 PM EST Office Visit [facility] [address] 5th Floor [address] [place] [address] Mary Vicente MD [address] [facility] [address] [place] [address] documented as of this encounter [...] documented as of this encounter Care Teams Electrostatic Painter Relationship Specialty Start Date End Date Mlacolm Hayward APRN [address] [place], [place] [id number] PCP - General 09/21/23 documented as of this encounter
--- OUTSIDE RECORDS SUMMARY | 2025-05-20 18:08 | XMS_ITS | Encounter Summary ---
Author Organization [facility] Address [address] [id number] Care Team Providers Care Roping Tender Name Role Phone Malcolm Hayward OWNER MANAGER Primary Care Provider [phone] Reason for Visit * Reason Comments Med Refill Encounter Details Date Type Department Care Team (Late st Contact Info) Description 12/02/2024 Refill [facility] Endocrinology [address] [place] [address] Divine Archer, OWNER MANAGER [address] [facility] [address] [place] [address] Social History Tobacco Use Types [...] Description 05/30/2025 2:40 PM EST Office Visit [facility] [address] [facility] 5th [facility] [address] [place] [address] Sheila Marcano, PA [address] [facility] [address] [place] [address] 06/14/2025 1:40 PM EST Office Visit Jac[facility]une[facility] Endocrinology [address] [place] [phone] Divine Archer, OWNER MANAGER [address] [facility] [address] [place] [address] 06/22/2025 1:40 PM EST Office Visit [facility] Vascular [facility] [address] [place] [address] Mary Vicente MD [address] [facility] [address] [place] [address] documented as of this encounter [...] documented as of this encounter Care Teams Roping Tender Relationship Specialty Start Date End Date Malcolm Hayward APRN [address] [facility] [place] [address] PCP - General 09/21/23 documented as of this encounter
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
[2025-05-20] MEDS: HYDROCODONE/APAP 5/325 MG TABLET 2 TAB PO (19:32)
--- NOTE | 2025-05-20 19:43 | PC.NURSE ---
Report called to LOLA Penny on [facility].
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
[2025-05-20 20:04] LABS: Microscopic, Urine URINE MICROSCOPIC (MICROSCOPIC)
[2025-05-20 20:07] LABS: Bilirubin,Urine Negative (Negative); Color,Urine YELLOW (Yellow); Glucose,Urine (UA) 1+ (Negative); Ketones,Urine Negative (Negative); Leukocyte Esterase,Urine 1+ (Negative); PH,Urine 6.0 (5.0-8.5); Protein,Urine Negative (Negative); Specific Gravity, Urine 1.015 (1.005-1.030); Urobilinogen,Urine 0.2 EU/dl (0.2)
[2025-05-20 20:15] LABS: Bacteria,Urine 4+ /lpf
--- NOTE | 2025-05-20 20:23 | PC.NURSE ---
Patient arrived to floor via wheelchair from ED at 20:22.
[2025-05-20] MEDS: humaLOG 100 UNITS/ML 10ML VIAL (SSI) SUBCUT (21:30)
[2025-05-20] MEDS: dilTIAZem ER 120MG CAPSULE 120 MG PO (21:30)
[2025-05-20] MEDS: BISOPROLOL 5MG TABLET 5 MG PO (21:30)
[2025-05-20] MEDS: ATORVASTATIN 40MG TABLET 40 MG PO (21:31)
[2025-05-20] MEDS: BUMETANIDE 1 MG TABLET 2 MG PO (21:31)
[2025-05-20] MEDS: GABAPENTIN 600MG TABLET 600 MG PO (21:31)
[2025-05-20] MEDS: SPIRONOLACTONE 25MG TABLET 100 MG PO (21:31)
[2025-05-20] MEDS: PANTOPRAZOLE 40MG TABLET 40 MG PO (21:32)
[2025-05-20] MEDS: TRAZODONE 50MG TABLET 100 MG PO (21:32)
[2025-05-20] MEDS: TAMSULOSIN 0.4MG CAPSULE 0.4 MG PO (21:34)
--- NOTE | 2025-05-20 21:55 | PC.WOUNDNOTE ---
left lower extremity
--- NOTE | 2025-05-20 21:55 | PC.WOUNDNOTE ---
right lower extremity
--- NOTE | 2025-05-20 21:56 | PC.WOUNDNOTE ---
posterior upper thigh
--- NOTE | 2025-05-20 21:56 | PC.WOUNDNOTE ---
right foot wound
--- NOTE | 2025-05-20 21:57 | PC.WOUNDNOTE ---
right foot wound
--- NOTE | 2025-05-21 03:34 | PC.NURSE ---
Alert and oriented. No complaints since arriving to floor. Barber in place. Wounds noted, see previous notes. Right foot wound dressed. Patient brought in home insulin pen, placed in omni. Received bath this shift. 2L NC at night while sleeping. Call light in reach.
[2025-05-21 03:56] VITALS: BP 124/69; PULSE 69; RESP 16; TEMP 36.6; O2SAT 99; BMI 72.5
[2025-05-21] MEDS: humaLOG 100 UNITS/ML 10ML VIAL (SSI) SUBCUT ×4 (06:40→20:15)
[2025-05-21 08:11] LABS: Hematocrit 30.1 % (42.0-52.0); Hemoglobin 9.0 g/dL (14.1-18.0); Immature Granulocytes % 0.5 %; Mean Corpuscular HGB Conc 29.9 g/dL (31.8-35.4); Mean Corpuscular Hemoglobin 22.6 pg (27.0-31.2); Mean Corpuscular Volume 75.4 fl (80-94); Nucleated Red Blood Cells % 0 %; Platelet Count 208 K/mm3 (142-424); Red Blood Count 3.99 M/mm3 (4.60-6.20); Red Cell Distribution Width-SD 50.4 fL; White Blood Count 6.5 K/mm3 (4.8-10.8)
[2025-05-21 08:31] LABS: Anion Gap 12.1 mEq/L (5-15); Blood Urea Nitrogen 18 mg/dl (9-20); Calcium 9.0 mg/dl (8.4-10.2); Carbon Dioxide 34 mmol/L (22.0-30.0); Chloride 89 mmol/L (98-107); Creatinine Clearance Estimated 100 mL/min (50-200); Creatinine,Serum 1.00 mg/dl (0.66-1.25); Estimated Glomerular Filt Rate 80 ml/min (>60); GFR (African American) 97 ML/MIN (>60); Glucose 218 mg/dl (74-100); Magnesium 1.6 mg/dl (1.6-2.3); Potassium 3.1 mmoL/L (3.5-5.1); Sodium 132 mmol/L (136-145)
[2025-05-21 08:32] LABS: C-Reactive Protein 17.6 mg/L (0-4)
[2025-05-21 08:42] LABS: Procalcitonin 0.106 ng/mL (0.0-2.0)
[2025-05-21] MEDS: OXYCODONE 5MG IMMEDIATE RELEASE TABLET 5 MG PO (08:51)
[2025-05-21] MEDS: BISOPROLOL 5MG TABLET 5 MG PO ×2 (08:54→20:16)
[2025-05-21] MEDS: BUMETANIDE 1 MG TABLET 2 MG PO (08:55)
[2025-05-21] MEDS: dilTIAZem ER 120MG CAPSULE 120 MG PO (08:56)
[2025-05-21] MEDS: PANTOPRAZOLE 40MG TABLET 40 MG PO ×2 (08:56→20:16)
[2025-05-21] MEDS: MEROPENEM 1 GM in 0.9 % SODIUM CHLORIDE 100 ML IV ×2 (08:57→18:43)
[2025-05-21] MEDS: SPIRONOLACTONE 25MG TABLET 100 MG PO (08:58)
[2025-05-21] MEDS: NYSTATIN TRIAMC TP ×2 (09:04→20:17)
[2025-05-21] MEDS: GABAPENTIN 600MG TABLET 600 MG PO ×3 (09:11→20:16)
[2025-05-21 10:32] LABS: Hemoglobin A1C 9.1 % (4.0-6.0)
--- NOTE | 2025-05-21 10:43 | HMH.PHAINT1 ---
Pharmacy Intervention Comments: MEDICATION RECONCILIATION COMPLETED ON PATIENT USING EXTERNAL FILL HISTORY FROM PHARMACY, PATIENT'S OWN MEDS, AND DISCHARGE SUMMARY FROM PREVIOUS ADMISSION. -ADRIANA SHEETS, GILD
[2025-05-21] MEDS: BUMETANIDE 1 MG TABLET 4 MG PO ×2 (12:29→20:16)
[2025-05-21] MEDS: POLYETHYLENE GLYCOL 3350 17 GM PACKET PO (12:29)
[2025-05-21] MEDS: POTASSIUM CHLORIDE 20MEQ TAB 40 MEQ PO ×3 (12:30→18:44)
[2025-05-21] MEDS: HYDROCODONE 10MG/APAP 325MG TAB 1 TAB PO (15:46)
--- NOTE | 2025-05-21 16:40 | PC.NURSE ---
previous indwelling catheter discontinued, new 18fr Barber inserted without complications. anchored with 10ml sterile water.
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
[2025-05-21 19:59] VITALS: BP 116/54; PULSE 76; RESP 18; TEMP 36.8; O2SAT 93
--- NOTE | 2025-05-21 20:01 | PC.NURSE ---
patient's home meds locked in i
--- NOTE | 2025-05-21 20:03 | PC.NURSE ---
[facility]
[2025-05-21 20:12] LABS: POC Glucose,Bedside 297 gm/dL (70-110)
[2025-05-21] MEDS: TAMSULOSIN 0.4MG CAPSULE 0.4 MG PO (20:16)
[2025-05-21] MEDS: ATORVASTATIN 40MG TABLET 40 MG PO (20:16)
[2025-05-21] MEDS: TRAZODONE 50MG TABLET 100 MG PO (20:16)
--- NOTE | 2025-05-21 20:35 | HMH.ITSTN ---
This advertising copywriter called to verify weight bearing foot x ray order and check pt condition in order to perform exam; Pts Nurse called and stated pt has a wound to the foot and pt feels more comfortable letting MD look at it tomorrow before performing the x ray exam
--- NOTE | 2025-05-21 20:39 | PC.NURSE ---
Weight bearing xray of foot ordered by Melany Izaguirre, patient is not comfortable standing as his wound is extensive and he has not been through rehab enough to stand. MANUFACTURING ENGINEERING INTERN has not examined the wound and concerned she is unaware of condition of wound on foot. Patient requested to wait until morning to speak with provider before doing this xray.
[2025-05-21 21:44] LABS: POC Glucose,Bedside 193 gm/dL (70-110)
[2025-05-22] MEDS: HYDROCODONE 10MG/APAP 325MG TAB 1 TAB PO ×3 (00:11→17:03)
[2025-05-22] MEDS: MEROPENEM 1 GM in 0.9 % SODIUM CHLORIDE 100 ML IV ×2 (00:11→09:18)
--- NOTE | 2025-05-22 03:38 | PC.NURSE ---
Alert and oriented. Complained of pain one time, treated per sep. Barber in place and draining. Wound to right foot, dressing in place. Room air, 2L NC HS. Abx given per sep. No other complaints. Call light in reach.
[2025-05-22 04:00] VITALS: BP 111/62; PULSE 75; RESP 16; TEMP 36.6; O2SAT 95; BMI 73.1
[2025-05-22] MEDS: humaLOG 100 UNITS/ML 10ML VIAL (SSI) SUBCUT ×3 (06:35→21:18)
--- NOTE | 2025-05-22 06:41 | XR_ITS ---
FINAL REPORT CLINICAL HISTORY: right foot diabetic ulcer COMPARISON: none FINDINGS: Three views of the right foot show status post amputation of the fifth digit at the level of the fifth metatarsal base. Gas in the soft tissues may represent open wound, although gas producing infection is not excluded. Calcaneal spurs are noted. No evidence of bony destruction. IMPRESSION: Gas in the soft tissues. No evidence of bony destruction. Reviewed, Interpreted and Dictated by Melany Joyner MD Transcribed by Iveth Webster Authenticated and . [facility]
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
[2025-05-22 06:54] LABS: Hematocrit 32.0 % (42.0-52.0); Hemoglobin 9.3 g/dL (14.1-18.0); Immature Granulocytes % 0.4 %; Mean Corpuscular HGB Conc 29.1 g/dL (31.8-35.4); Mean Corpuscular Hemoglobin 22.2 pg (27.0-31.2); Mean Corpuscular Volume 76.4 fl (80-94); Nucleated Red Blood Cells % 0 %; Platelet Count 197 K/mm3 (142-424); Red Blood Count 4.19 M/mm3 (4.60-6.20); Red Cell Distribution Width-SD 51.1 fL; White Blood Count 5.6 K/mm3 (4.8-10.8)
[2025-05-22 06:57] LABS: Anion Gap 9.2 mEq/L (5-15); Blood Urea Nitrogen 14 mg/dl (9-20); Calcium 9.0 mg/dl (8.4-10.2); Carbon Dioxide 36 mmol/L (22.0-30.0); Chloride 91 mmol/L (98-107); Creatinine Clearance Estimated 111 mL/min (50-200); Creatinine,Serum 0.90 mg/dl (0.66-1.25); Estimated Glomerular Filt Rate 90 ml/min (>60); GFR (African American) 109 ML/MIN (>60); Glucose 180 mg/dl (74-100); Magnesium 1.6 mg/dl (1.6-2.3); Potassium 3.2 mmoL/L (3.5-5.1); Sodium 133 mmol/L (136-145)
[2025-05-22 07:39] LABS: Alanine Aminotransferase 21 U/L (12-78); Albumin Level 3.8 g/dl (3.5-5.0); Albumin/Globulin Ratio 1.0 (1.1-1.8); Alkaline Phosphatase 74 U/L (38-126); Anion Gap 10.4 mEq/L (5-15); Aspartate Amino Transferase 25 U/L (17-59); Bilirubin,Total 0.9 mg/dl (0.2-1.3); Blood Urea Nitrogen 15 mg/dl (9-20); Calcium 8.9 mg/dl (8.4-10.2); Carbon Dioxide 36 mmol/L (22.0-30.0); Chloride 91 mmol/L (98-107); Creatinine Clearance Estimated 111 mL/min (50-200); Creatinine,Serum 0.90 mg/dl (0.66-1.25); Estimated Glomerular Filt Rate 90 ml/min (>60); GFR (African American) 109 ML/MIN (>60); Globulin 3.7 g/dL (1.3-3.2); Glucose 173 mg/dl (74-100); Potassium 3.4 mmoL/L (3.5-5.1); Sodium 134 mmol/L (136-145); Total Protein,Serum 7.5 g/dl (6.3-8.2)
[2025-05-22 07:44] LABS: C-Reactive Protein 20.4 mg/L (0-4)
[2025-05-22 08:00] VITALS: BP 101/57; PULSE 68; RESP 20; TEMP 36.7; O2SAT 98
--- NOTE | 2025-05-22 09:08 | HMH.PTEV ---
Physical Therapy Evaluation Rehab PT IP Evaluation Start: 05/20/25 21:47 Freq: ONCE Status: Active Protocol: Document 05/22/25 08:55 MINGO (Rec: 05/22/25 09:08 MINGO [id number]) Subjective/History History History Per H&P: Patient with past medical history of CHF, diabetes with neuropathy, atrial fibrillation on Xarelto, hypertension, hyperlipidemia, frequent UTIs, morbid obesity. Patient presents with poor medical care at group home facility. Patient treated for recurrent UTIs 1 month ago with IV antibiotics at this institution. Patient had PICC line placed, and discharged home on IV antibiotics. Patient got sick at home, and subsequently admitted to within 7 days of discharge to this institution. Patient diagnosed right lower extremity foot infection. Patient underwent RLE debridement at [facility]. Placed on 2 weeks IV antibiotics. Discharged to SNF [facility]. Patient and states patient receiving suboptimal care at [facility]. Patient claims he has not received medication in several days. Patient also claims no wound VAC placed or wound care done to right lower extremity. Patient's presented to emergency room in [facility] requesting patient be admitted for reassignment to another SNF. Patient's review of systems totally negative at time of my admission assessment. Denies chest pain, palpitations, shortness of breath, productive cough, fevers, chills, known sick contacts, recent travel, abdominal pain, diarrhea, constipation, GI bleeding, accidents, MVAs, headaches, or blurry vision. Patient's present with patient at time of assessment and showed me a list of patient's medications on her iPhone. Per I do not think he has gotten any of these today. Subjective Subjective Pt reports prior to initial surgery, pt lived with his and daughter in a home. Pt normally IND with all mobility. Pt reports he is NWB RLE and has been able to perform STSs from EOB with EOB raised. Pt has recently been using a w/c for mobility in SNF. [facility] How much help from another person do you currently need... Turning from your A little back to your side while in a flat bed without using bedrails? Moving from lying on A little back to sitting on the side of a flat bed without using bedrails? Moving to and from a A little bed to a chair ( including a wheelchair)? Standing up from a A little chair using your arms? (e.g., wheelchair, bedside chair) Walking in hospital A lot room? Climbing 3-5 steps Total with a railing? Mobility Score 15 Mobility Level [facility] Mobility 4 Move to chair/commode Mobility Calculator Rehab PT IP Eval Objective Appearance Patient Behavior Appropriate,Cooperative Patient Orientation Person,Place,Situation Difficulty following none instructions Speech Pattern Clear Ambulation Patient Able to No Ambulate Balance Ability to Arise Able, uses arms to help Sitting Balance Steady, safe Standing Balance Unsteady Dynamic Sitting Good Balance Ability Dynamic Standing Poor Balance Ability Transfers Bed Transfer Ability Minimal x 1 (25% assist) Sit to Stand Bed Minimal x 1 (25% assist) Transfer Ability Rehab PT IP prob,goals,plan Problems Date of Evaluation: 05/22/25 PT IP Problems Bed Mobility,Transfers,Gait,Balance,Self care,Safety Rehab Potential Rehab Potential Good Plan PT Intervention Plan Bed Mobility,Transfers,Gait,Balance,Self care,Safety, Therapeutic Exercise Other Intervention 1-2 times Plan PT Plan Frequency Daily Duration LOS Discharge Plan PT Discharge Plan Pt would benefit from inpatient rehab facility (IRF) placement to address deficits and maximize safety with mobility. Pt would benefit from skilled acute care PT while at [facility] to address deficits and prevent further functional decline. Eval Complexity Eval Charge Codes 18894 - Moderate Complexity PHYSICIAN CERTIFICATION: I certify the specified therapy services for Gonzalo Russell are required, authorized, and reviewed every 30 days.
[2025-05-22] MEDS: GABAPENTIN 600MG TABLET 600 MG PO ×3 (09:18→21:18)
[2025-05-22] MEDS: BUMETANIDE 1 MG TABLET 4 MG PO ×3 (09:19→21:18)
[2025-05-22] MEDS: POTASSIUM CHLORIDE 20MEQ TAB 40 MEQ PO ×2 (09:19→12:23)
[2025-05-22] MEDS: PANTOPRAZOLE 40MG TABLET 40 MG PO ×2 (09:20→21:18)
[2025-05-22] MEDS: dilTIAZem ER 120MG CAPSULE 120 MG PO (09:20)
[2025-05-22] MEDS: BISOPROLOL 5MG TABLET 5 MG PO (09:20)
[2025-05-22] MEDS: SPIRONOLACTONE 25MG TABLET 100 MG PO (09:20)
--- NOTE | 2025-05-22 10:00 | HMH.OTEV ---
OT Evaluation Rehab OT IP Evaluation Start: 05/20/25 21:47 Freq: ONCE Status: Active Protocol: Document 05/22/25 09:52 STEPHEN (Rec: 05/22/25 10:00 STEPHEN [id number]) Rehab OT IP Assessment Subjective History Per H&P: Patient with past medical history of CHF, diabetes with neuropathy, atrial fibrillation on Xarelto, hypertension, hyperlipidemia, frequent UTIs, morbid obesity. Patient presents with poor medical care at [facility]. Patient treated for recurrent UTIs 1 month ago with IV antibiotics at this institution. Patient had PICC line placed, and discharged home on IV antibiotics. Patient got sick at home, and subsequently admitted to within 7 days of discharge to this institution. Patient diagnosed right lower extremity foot infection. Patient underwent RLE debridement at [facility]. Placed on 2 weeks IV antibiotics. Discharged to [facility]. Patient and states patient receiving suboptimal care at [facility]. Patient claims he has not received medication in several days. Patient also claims no wound VAC placed or wound care done to right lower extremity. Patient's presented to emergency room in [facility] requesting patient be admitted for reassignment to another [facility]. Patient's review of systems totally negative at time of my admission assessment. Denies chest pain, palpitations, shortness of breath, productive cough, fevers, chills, known sick contacts, recent travel, abdominal pain, diarrhea, constipation, GI bleeding, accidents, MVAs, headaches, or blurry vision. Patient's present with patient at time of assessment and showed me a list of patient's medications on her iPhone. Per I do not think he has gotten any of these today. Subjective I did not like them. Pt supine in bed when therapy entered room. pt agreed to OT eval this AM. Pt orient x3. pt reported they live with and daughter in home. Pt reported they are normally IND with functional mobility. Pt reported he is NWB RLE and has been able to perform STSs from EOB with EOB raised. Pt has recently been using a w/c for functional mobility in SNF. Pt agreed to sit on EOB. Pt went from supine to EOB with Min A x1 . Pt then completed STS with walker with Min A x1 and demo good safety and NWB precautions twice as pt had to complete another STS with Min A x1 w/ walker so therapy could place eli under pt. Pt then moved to supine position with SBA. pt left supine in bed with call light and all other needs within reach. Objective Patient Orientation Person,Place,Situation Right Upper WFL Extremity Gross ROM Left Upper Extremity WFL Gross ROM Bed Mobility bed mobility-scooting,bed mobility - supine/sit Assist Level Minimal x 1 (25% assist) Transfer Training Sit/Stand Transfer Assist Level Minimal x 1 (25% assist) Chair Transfer Standard Walker,Rolling Walker Assistive Devices Decrease in Yes Endurance Rehab OT IP prob,goals,plan Problems Date of Evaluation: 05/22/25 OT IP Problems Bed Mobility,Transfers,Balance,Self care,Safety Rehab Potential Rehab Potential Good Equipment Needs Assistive Devices Standard Walker,Rolling / Wheeled Walker,Wheelchair Plan OT intervention Plan Bed Mobility,Transfers,Balance,Self care,Safety, Therapeutic Exercise OT Plan Frequency Daily Duration LOS Discharge Goals Bed Mobility Ability Standby Assistance Sit to Stand Chair Supervision/Stand by Transfer Ability Chair Transfer Supervision/Stand by Ability Chair Transfer Sit to/from Ambulatory Technique Chair Transfer Rolling Walker Assistive Devices Feeding Ability Assist with Tray Set Up Decrease in No Endurance Discharge Plan OT Discharge Plan At this time, pt presents below baseline and would benefit from skilled acute OT services and interventions while admitted at [facility] to further address functional limitations in occupational performance. Once medically stable and DC from [facility], pt would benefit from IP rehab to further address functional limitations in occupational performance with OT services and interventions. Eval Complexity Eval Charge Codes 24114 - Moderate Complexity PHYSICIAN CERTIFICATION: I certify the specified therapy services for Gonzalo Russell are required, authorized, and reviewed every 30 days.
[2025-05-22] MEDS: MAGNESIUM SULFATE IN WATER 2 GM/50 ML PIGGYBACK IV ×2 (10:32→11:38)
[2025-05-22 11:50] LABS: POC Glucose,Bedside 126 gm/dL (70-110)
--- NOTE | 2025-05-22 11:51 | CARE MANAGER ---
Addendum entered by Debora Hurd RN 05/22/25 13:08: Patient requires wound vac as well. He requests DME from [facility]. Sent information to [facility] for both items. Original Note: Patient requires the use of a bariatric bedside commode due to being room-confined with the inability walk or get to the toilet facilities due to recent amputation to part of his foot and weakness.
--- NOTE | 2025-05-22 12:02 | SW/DCPLANNER ---
Addendum entered by Marilu Dwyer 05/22/25 12:31: Faxed patient's information to [facility]. I will update once i hear back if they can accept or not. Luis E Schroeder Addendum entered by Adwoa Ricci 05/22/25 12:09: Patient was at SNF ([facility]) after discharge from . Per patient [facility] is the only facility that would accept due to weight. Patient was not happy w/ facility and is not interested in returning. Patient stated that he prefers to return home. Patient stated that his or mother would be available to assist at home. Original Note: Patient/family prefer that patient return home w/ home health ([facility]), BSC and wound vac. is not interested in placement at this time and prefer that patient returns home. Patient is set up for outpatient appointment at on 05/30. Patient/ voiced no further concerns at this time. MD will order a wound vac to be placed prior to discharge.
--- NOTE | 2025-05-22 14:03 | HMH.PTWOUND ---
Rehab Wound Evaluation Rehab IP Wound Evaluation Start: 05/22/25 08:45 Freq: ONCE Status: Active Protocol: Document 05/22/25 13:59 NUVIA (Rec: 05/22/25 14:02 NUVIA [id number]) Rehab PT Wound Assessment Subjective Subjective with past medical history of CHF, diabetes with neuropathy, atrial fibrillation on Xarelto, hypertension, hyperlipidemia, frequent UTIs, morbid obesity. Patient presents with poor medical care at [facility] facility. Patient treated for recurrent UTIs 1 month ago with IV antibiotics at this institution. Patient had PICC line placed, and discharged home on IV antibiotics. Patient got sick at home, and subsequently admitted to within 7 days of discharge to this institution. Patient diagnosed right lower extremity foot infection. Patient underwent RLE debridement at [facility]. Placed on 2 weeks IV antibiotics. Discharged to SNF [facility]. Patient and states patient receiving suboptimal care at [facility]. Patient claims he has not received medication in several days. Patient also claims no wound VAC placed or wound care done to right lower extremity. Patient's presented [facility] requesting patient be admitted for reassignment to another [facility]. Patient's review of systems totally negative at time of my admission assessment. Denies chest pain, palpitations, shortness of breath, productive cough, fevers, chills, known sick contacts, recent travel, abdominal pain, diarrhea, constipation, GI bleeding, accidents, MVAs, headaches, or blurry vision. 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 Wound Right Lateral Foot Wound Type surgical amputation with I&D Is This a Chronic Yes Wound Wound Length (cm) 9.8 Wound Width (cm) 6.1 Wound Depth (cm) 0.5 Wound Bed Appearance Beefy Red Wound Margins Well Defined Description Wound Drainage Serosanguineous Description Drainage Amount Small Packing Type Woundvac Sponge Primary Dressing Transparent Drape Wound Debridement Gauze,Mechanical Method Dressing Change Tolerated Well Patient Tolerance Plan/Recommendation Comment Continue wound VAC dressing changes every 48-72 hours as pt tolerates until adequate healing has been noted. Eval Complexity Eval Charge Codes 82744 - Moderate Complexity PHYSICIAN CERTIFICATION: I certify the specified therapy services for Gonzalo Russell are required, authorized, and reviewed every 30 days.
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
[2025-05-22 16:00] VITALS: BP 123/56; PULSE 72; RESP 18; TEMP 36.7; O2SAT 96
[2025-05-22 17:29] LABS: POC Glucose,Bedside 248 gm/dL (70-110)
--- NOTE | 2025-05-22 18:26 | PC.NURSE ---
multiple attempts to call EMS to put pt on the list for a ambulance ride home. no answer at this time.
--- NOTE | 2025-05-22 19:34 | PC.NURSE ---
spoke with ems r/t transferring pt from hospital to home and provided information requested - awaiting call back
[2025-05-22 20:00] VITALS: BP 119/73; PULSE 61; RESP 16; TEMP 37.1; O2SAT 99
[2025-05-22] MEDS: TAMSULOSIN 0.4MG CAPSULE 0.4 MG PO (21:18)
[2025-05-22] MEDS: ATORVASTATIN 40MG TABLET 40 MG PO (21:18)
[2025-05-22] MEDS: TRAZODONE 50MG TABLET 100 MG PO (21:18)
[2025-05-22 21:21] LABS: POC Glucose,Bedside 196 gm/dL (70-110)
--- NOTE | 2025-05-23 00:35 | PC.NURSE ---
patient left via ems to home
--- NOTE | 2025-05-23 11:24 | SW/DCPLANNER ---
Spoke with patient on the phone. Patient stated that he is doing good. Patient stated that he is aware of his upcoming appointments. Patient stated that he was not prescribed any new medicine. Patient stated that he has no concerns or questions at this time. Luis E Schroeder
[2025-05-23 15:08] LABS: POC Glucose,Bedside 182 gm/dL (70-110)
[2025-05-23 15:09] LABS: POC Glucose,Bedside 239 gm/dL (70-110)
[2025-05-23 15:10] LABS: POC Glucose,Bedside 308 gm/dL (70-110)
== END 2025-05-23 00:35 | disposition home health service (06) ==
LOC: ER 17:58 → 2ND 19:27
PROVIDERS: Internal Medicine; Admitting Provider Student in an Organized Health Care Education/Training Program; Emergency Provider Student in an Organized Health Care Education/Training Program; PCP Nurse Practitioner Family; Visit Provider Student in an Organized Health Care Education/Training Program
DX: R53.1 Weakness (principal); R26.2 Difficulty in walking, not elsewhere classified; T74.01XA Adult neglect or abandonment, confirmed, initial encounter; R33.9 Retention of urine, unspecified; E11.621 Type 2 diabetes mellitus with foot ulcer; L97.512 Non-pressure chronic ulcer of other part of right foot with fat layer exposed; S98.131A Complete traumatic amputation of one right lesser toe, initial encounter; S81.809A Unspecified open wound, unspecified lower leg, initial encounter; Z98.890 Other specified postprocedural states; I48.20 Chronic atrial fibrillation, unspecified; I50.9 Heart failure, unspecified; J44.9 Chronic obstructive pulmonary disease, unspecified; F32.A Depression, unspecified; E78.5 Hyperlipidemia, unspecified; I11.0 Hypertensive heart disease with heart failure; Z56.0 Unemployment, unspecified; Z88.1 Allergy status to other antibiotic agents; Z79.899 Other long term (current) drug therapy; E11.40 Type 2 diabetes mellitus with diabetic neuropathy, unspecified; Z79.02 Long term (current) use of antithrombotics/antiplatelets; E66.01 Morbid (severe) obesity due to excess calories; Z68.45 Body mass index [BMI] 70 or greater, adult; Z98.84 Bariatric surgery status
CPT/HCPCS: 36415; 73630; 80048; 80053; 81001; 82962; 83036; 83735; 84145; 85025; 85651; 86140; 87070; 87077; 87086; 87088; 87186; 87205; 97162; 97166; 97530; 99285; G0378; J2185; J3475

== ENCOUNTER 2025-05-31 16:37 | Emergency (ER) | payer MEDICARE, BC, SELFPAY ==
--- OUTSIDE RECORDS SUMMARY | 2025-04-27 20:29 | XMS_ITS | Encounter Summary ---
Author Organization [facility] Address [address] [place] [address] Care Team Providers Care Actimize Architect Name Role Phone Malcolm Hayward APRN Primary Care Provider [phone] Reason for Referral * Consultation (Routine) - Authorized Specialty Diagnoses / Procedures Referred By Contac t Referred To Contact Endocrinology Diagnoses Uncontrolled type 2 diabetes mellitus with hyperglycemia, with long-term current use of insulin Type 2 diabetes mellitus with diabetic peripheral angiopathy without gangrene, with long-term current use of insulin Martina Foote PA [address] [place] [address] Phone: tel: fax: Referral ID Status Reason Start Date Expiration Date Visits Requested Visits Authorized [id number] Authorized Specialty Services Required 5 11/04/2026 1 1 * Consultation (Routine) - Authorized Specialty Diagnoses / Procedures Referred By Contact Referred To Contact Vascular Surgery / [facility] Diagnoses Diabetic foot ulcer with osteomyelitis Diane Guzman MD [address] [place] [address] Phone: tel:[phone] fax:[phone] [facility] [address] [facility] 5th Floor [address] [place] [address] Phone: tel: fax: Referral ID Status Reason Start Date Expiration Date Visits Requested Visits Authorized [id number] Authorized Specialty Services Required 5 11/02/2026 1 1 Reason for Visit * Reason Comments Wound Check * Auth/Cert (Routine) Specialty Diagnoses / Procedures Referred By Anish t Referred To Contact Diagnoses Diabetic foot ulcer with osteomyelitis Greg Lee MD [address] [place] [address] Phone: tel: fax: [facility] Emergency Department [address] [place] [address] Phone: tel: Referral ID Status Reason Start Date Expiration Date Visits Re quested Visits Authorized [id number] 1 1 Encounter Details Date Type Department Care Team (Latest Contact Info) Description 04/27/2025 9:29 PM EDT - 05/18/2025 11:48 AM EST Hospital Encounter [facility] Inpatient [address] [place] [address] Jessa Law MD [address] [place] [address] Man Garcia, DO [address] [place] [address] Greg Lee MD [address] [place] [address] Marjorie Myers MD [address] [place] [address] Diane Guzman MD [address] [place] [address] Selin Lee MD [address] [place] [address] Wily Goyal, DO [address] [place] [address] Other chronic osteomyelitis of right foot (CMS/HCC) (Primary Dx); Diabetic foot ulcer with osteomyelitis; Uncontrolled type 2 diabetes mellitus with hyperglycemia, with long-term current use of insulin; Type 2 diabetes mellitus with diabetic peripheral angiopathy without gangrene, with long-term current use of insulin Discharge Disposition: Long Term Facility Social History Tobacco Use Types Packs/Day [...] the past 12 m [facility], were you homeless or living in a group home (including now)? No 04/28/2025 [facility] Utilities Answer Date Recorded In the past 12 months has [employer], gas, oil, or water company threatened [...] 3 times a day. 5 tablet 05/17/2025 Insulin Pen Needle (Pen Ludowici) 31G X 5 MM misc USE TO [...] Take 1 capsule by mouth daily. 05/10/2018 HYDROcodone-acetami nophen ([place]) 10-325 MG tablet Take 1 tablet by mouth every 6 hours as needed for severe pain for up to 3 days. 5 tablet 05/17/2025 05/20/20 documented as of this encounter Miscellaneous Notes [...] provided Taken 05/17/2025 2228 by Ivan Slaughter RNgarbage truck driver Interventions: medication (see MAR) Goal: Optimal Wound [...] utilized self-care encouraged Taken 05/15/2025 1148 by aSnty Garcia, RN Diversional Activities: television Intervention: Develop [...] Ongoing, Progressing Intervention: Promote Activity and Functional [place] Flowsheets Taken 05/18/2025 1131 by Kylee Gonzalez [...] PCP name and Address: Malcolm Hayward APRN [address] [place] [address] / [place] [address] Brief History of Present Illness 49 M [...] extremity. He was accepted for discharge to [facility] rehab facility. Urinary Retention and Recurrent [...] He was medically stable for discharge to [facility] rehab facility, with recommendations for close [...] HYDROcodone-acetaminophen 10-325 MG tablet Commonly known as: [place] Take 1 tablet by mouth every 6 [...] the skin 1 time per week. Pen Ludowici 31G X 5 MM mis USE TO [...] Your Medications These medications were sent to [facility] [place] [address] gabapentin 600 MG tablet HYDROcodone-acetaminophen 10-325 MG tablet insulin regular 100 UNIT/ML injection vial insulin regular 500 UNIT/ML CONCENTRATED injection vial Information about where to get these medications is not yet available Ask your nurse or doctor about these medications ferrous sulfate 324 MG tablet delayed-release Discharge Diagnosis Medical Problems Active and Resolved Hospital Problems Hospital Morbid obesity ([facility]) Hypertension Type 2 diabetes Overview Signed [...] 05/30/2025 2:40 PM Sheila Marcano PA [facility] 06/14/2025 1:40 PM Divine Archer, KEYBOARD SPECIALIST [facility] 06/22/2025 1:40 PM Mary Vicente MD [facility] Pertinent Physical Exam At Time [...] Note Gonzalo Smalls 49 y.o. male CSN: [id number] Admission: 04/27/2025 9:29 PM Primary Problem: Diabetic foot ulcer Primary Ortho Assistant: Primary Caregiver: Self Assistance Available at Discharge: Availability of Care Givers (#Hours): 24 hours Housing Circumstances-Z Codes: Housing Circumstances (select all that apply): Low Income (101-300% Federal Poverty Guidlines) - Z596 Discharge Facility/Level of Care Needs: Discharge Facility/Level of Care Needs: 62-Rehab facilty ([place]) Patient's Choice of Community Agency(s): Patient's Choice of Community Agency(s): [facility] Patient/Family Anticipated Services at Transition: Patient/Family [...] Recieved By: Gonzalo Smalls- the patient Follow-up: [facility] [address] [facility] 5th Floor [address] [facility] [address] Primary care provider (PCP) Malcolm Hayward, KEYBOARD SPECIALIST [address] [facility] [place] [address] Discharge Transportation: Transportation Anticipated: medical transport Transportation [...] Araceli in admission who confirmed pt's acceptance #[phone]. Pt updated and in agreement with d/c plan. Team and bedside RN updated. Bedside RN to call report to #[phone]. Araceli has access to [employer] and will get d/c s [facility] that way. Script for controlled medication to be sent to [facility] [place]. Ambulance to transport the pt is [...] Mobility Bed Mobility Exam: Scooting/Bridging Level of [place]: Contact guard Physical/Nonphysical Assist: Verbal Cues, Minimal cues Assistive Device: Overhead trapeze Bed Mobility Exam: Supine to Sit Level of [place]: Minimum assist (75% patient's effort) Physical/Nonphysical Assist: HOB elevated, Verbal Cues, Minimal cues Assistive Device: Overhead trapeze Bed Mobility Exam: Sit to Supine Level of [place]: Stand-by assist Physical/Nonphysical Assist: Verbal Cues, Minimal cues Assistive Device: Overhead trapeze Transfers Transfer Exam: Sit to stand Level of [place]: Maximum assist (25% patient's effort) Physical/Nonphysical Assist: Verbal Cues, Nonverbal cues (demo/gestures), Additional assist utilized for safety, Set-up required, Minimal cues Assistive Device: Walker, rolling (bariatric) Transfer Exam: Stand to Sit Level of [place]: Maximum assist (25% patient's effort) Physical/Nonphysical Assist: [...] help from Spouse Level of Mobility Mobility [place] Independent gait with device History of Falls [...] go, I'm just nervous. Visitors Present No Transit Specialist (if applicable) Transit Specialist: Not Applicable OBJECTIVE PAIN Pt was without c/o pain at the beginning of this session and throughout the PT treatment. Prior to BANQUET LEAD's departure: * rest was provided * patient [...] by this therapist: BED MOBILITY Level of [place] Physical/Non- physical Assist Adaptive Equipment Utilized Rolling/ Turning Contact guard Verbal Cues, Set-up required, Minimal cues Bed rails, Other (SAND SCREENER) Scooting/ Bridging Contact guard Verbal Cues, Minimal [...] breaks between standing trials. TRANSFERS Level of [place] Physical/Non- physical Assist Adaptive Equipment Utilized Sit [...] placement, sequencing, weight shifting, appropriate use of SAND SCREENER, and maintaining NWB on RLE. Tactile cues provided to assist in sequencing and weight shifting. AMBULATION Level of [place] Distance Adaptive Equipment Utilized Ambulation N/A N/A N/A Comments Unable to side step or progress to forward hop step at bariatric RW level due to inabilityto maintain prolonged standing position while maintaining NWB in RLE. BALANCE Postural Appearance Posture: Within Functional Limits, Forward head Level of [place] Balance Support Activities Static Sit Standby assist [...] Abduction * Ankle pumps x1-2 sec holds BANQUET LEAD provided minimal verbal and tactile cueing to [...] overall. Standardized Assessments Standardized Assessments Standardized Assessments: [facility] 6-Clicks Mobility Assessment [facility] 6-Clicks Mobility Assessment Difficulty patient has turning [...] climbing 3-5 steps with a railing?: Unable [facility] 6-Clicks Mobility Assessment Total : 11 PATIENT / FAMILY EDUCATION Patient was educated regarding the PT POC and recommendations regarding discharge planning, as wellas progressively increased time spent out of bed/up to chair, and continued mobilization / ambulation with nursing staff as tolerated to promote increased activity tolerance and Endurance. BANQUET LEAD providing verbal cues/demonstration for pursed-lip breathing technique to promote improved ventilation, decreased respiratory rate and energy conservation with activity. BANQUET LEAD stressed to patient the importance of having [...] has been following with urology outpatient at [facility]. They have postulated this to be related [...] Pain Flowsheets Taken 05/16/2025 0000 by Ivan Slaughter RN Sleep/Rest Enhancement: awakenings minimized regular sleep/rest pattern promoted Taken 05/06/20251999 by Judd Zavaleta RN Medication Review/Management: medications reviewed Problem: Self-Care Deficit Goal: Improved Ability to Complete Activities of Daily Living Outcome: Ongoing, Progressing Intervention: Promote Activity and Functional [place] Flowsheets Taken 05/16/20251999 by vIan Slaughter RN Activity Assistance Provided: assistance, 1 [...] -Diabetes education: completed 05/10 -Follow-up plan: home extension service supervisor - Dr Anette Kendall -Tentative discharge recommendations: -pt will need close monitoring by rehab facility provider as changes in diet and activity level maylead to changes in glycemic patterns and insulin requirement NOTE: -patient reports that once the new year hits, he worries about the cost of U500 insulin --> discussed cost through [employer] - should be able to get vials of U500 at $35 per vial. Also discussed contacting [employer] directly for the financial assistance program. -hopefully [...] team via secure chat or page us [phone] during 7a-7p, Thursday-Thursday. For after hours please [...] Ongoing, Progressing Intervention: Promote Activity and Functional [place] Flowsheets (Taken 05/16/2025 1949) Self-Care Promotion: independence encouraged * Progress Notes - Chayo Jennings RN - 05/16/2025 2:16 PM EST Case Management Adult Progress Note Gonzalo Smalls 49 y.o. male CSN: [id number] Admission: 04/27/2025 9:29 PM Primary Problem: Diabetic foot ulcer Anticipated Discharge Date: 05/18/25 Pt is in a need for rehab placement and was referred and accepted by [facility] Espino[facility]- LOLA CM spoke with Araceli in admission, ph#[phone] who confirmed pts acceptance. Pt updated and [...] Note Gonzalo Smalls 49 y.o. male CSN: [id number] This is a 49 y.o. male patient was admitted to [facility] with the diagnosis of Diabetic Foot Ulcer, [...] Hayward APRN, [facility]End[facility] is Dr. Garvey in [place], [place]. Medication Education instructions given: The use [...] Prevention , pt reports he has a whittling room operator as well Follow Ups: Provided with educational [...] has been following with urology outpatient at [facility]. They have postulated this to be related [...] the video go to this web address: [email or web address] Or, scan this QR code with your [...] to gently smooth the nail. Have a whittling room operator trim your nails if you can't see [...] remove corns, calluses, or warts by yourself. Kxtw-[id number]-iahrtil products can burn or damage your skin. [...] your primary care doctor or by a whittling room operator. This is a doctor who specializes in foot care. Some diabetes centers have regular foot clinics. Last Reviewed Date: 2024 00:00:00 ?? [id number] [employer]. All rights reserved. This information is not intended as a substitute for professional medical care. Always follow your healthcare professional's instructions. * Ruy HoffmanMENG - Vivian Garcia RN - 05/16/2025 11:06 AM EST Images from the original note were not included. [id number] Inspecting Your Feet (Diabetes) [id number]-[id number]: Last Reviewed Date: 2024 00:00:00 ?? [id number] [employer]. All rights reserved. This information is not [...] (H) 05/14/2025 I reviewed bg tracing in [facility] glucose timeline 05/16/25 ASSESSMENT Hospital Course: Gonzalo [...] mellitus - type 2 -Home medications: CGM: Third Chicken G7 Insulin regimen: U500 insulin: prescription for [...] -Diabetes education: completed 05/10 -Follow-up plan: home extension service supervisor - Anette Kendall -Tentative discharge recommendations: -pt will need close monitoring by rehab facility provider as changes in diet and activity level maylead to changes in glycemic patterns and insulin requirement NOTE: -patient reports that once the new year hits, he worries about the cost of U500 insulin --> discussed cost through [employer] - should be able to get vials of U500 at $35 per vial. Also discussed contacting [employer] directly for the financial assistance program. -patient with plans to discharge to [facility] once able - need to check with [facility] to see if they are okay with utilizing U500 insulin if patient is able to bring in his own supply Insulin regimen - would like patient to utilize U500 home dosing at [facility] Continue Dexcom G7 CGM Likely continue [...] team via secure chat orpage us at [phone] during -7p, Thursday-Thursday. For after hours please contact the on-call Endocrine Fellow. Thank you for the opportunity to participate in this patient's care. - Reviewed notes by primary team and consulting services to determine appropriate plan of care as in the note. - Discussed plan and management with patient and certified breastfeeding educator Time Spent: I personally spent a [...] Note Gonzalo Smalls 49 y.o. male CSN: [id number] Room/Bed 117/117A Nutrition evaluation type: follow-up Reason [...] Supplemental oxygen O2 Delivery Method: Nasal cannula [place] Coma Scale Score: 15 Miguel Ángel [...] Weight Evaluation: Extreme Obesity (BMI > 40) [place] Body Weight (kg): 80.9 Percent [place] Body Weight: 311 Adjusted Body Weight (kg): [...] Study Results: Current Nutrition Intake: Diet Supplements: Ykree Packet Diet Order: Adult Diet Diet Texture: Regular Adult Carbohydrate Restriction: Consistent CHO 2 ([id number] Steven, 80 g/meal) Adult Sodium Restriction: 2,000 mg Na Percent Meals Eaten (%): 75-100% of meals Diet Experience and Nutrition History: Diet Education Provided: Will monitor Pertinent home medications: Albuterol, Bumex, Insulin, Metformin, Ozempic, Aldactone Amish needs: Nutrition Focused Physical Exam: Physical exam [...] Anxiety disorder, unspecified Anxiety Arthritis Atrial fibrillation ([facility]) CAP (community acquired pneumonia) 05/19/2024 Cellulitis [...] has been following with urology outpatient at [facility]. They have postulated this to be related to his diabetes and have had several voiding trials which have failed. Also has un dergone proctoscopy (?) which was normal. Started on flomax several weeks BANQUET LEAD and this has not beenhelpful. and he [...] plan and management with patient. Selin Lee Stockroom Keeper Division of Hospital Medicine [facility] * Care Plan - Santy Garcia RN [...] Note Gonzalo Smalls 49 y.o. male CSN: [id number] Admission: 04/27/2025 9:29 PM Primary Problem: Diabetic foot ulcer Anticipated Discharge Date: TBD Pt was referred to many SNF in and out of [place]. Few SNF are considering accepting the pt along with [facility] Espinoza, ph#[phone]. RN LA spoke with Araceli- admission at [facility]. Araceli is stating that she is checking if they can order lift needed for the pt and will call back. Team aware. LOLA TOVAR will continue to follow and assist as needed. Chayo Jennings RN * Progress Notes - Aileen Leonardo, KEYBOARD SPECIALIST - 05/15/2025 8:25 AM EST Endocrine - [...] (H) 05/13/2025 I reviewed bg tracing in [facility] glucose timeline 05/15/25 ASSESSMENT Hospital Course: Gonzalo [...] -Diabetes education: completed 05/10 -Follow-up plan: home extension service supervisor - Anette Kendall -Tentative discharge recommendations: -pt will need close monitoring by rehab facility provider as changes in diet and activity level maylead to changes in glycemic patterns and insulin requirement NOTE: -patient reports that once the new year hits, he worries about the cost of U500 insulin --> discussed cost through [employer] - should be able to get vials of U500 at $35 per vial. Also discussed contacting [employer] directly for the financial assistance program. -patient with plans to discharge to [facility] once able - need to check with [facility] to see if they are okay with utilizing U500 insulin if patient is able to bring in his own supply Insulin regimen - would like patient to utilize U500 home dosing at [facility] Continue Dexcom G7 CGM Likely continue [...] team via secure chat orpage us at [phone] during 7a-7p, Thursday-Thursday. For after hours please [...] -Diabetes education: completed 05/10 -Follow-up plan: home extension service supervisor - Anette Kendall -Tentative discharge recommendations: -pt will need close monitoring by rehab facility provider as changes in diet and activity level maylead to changes in glycemic patterns and insulin requirement NOTE: -patient reports that once the new year hits, he worries about the cost of U500 insulin --> discussed cost through [employer] - should be able to get vials of U500 at $35 per vial. Also discussed contacting [employer] directly for the financial assistance program. -patient with plans to discharge to [facility] once able - need to check with [facility] to see if they are okay with utilizing U500 insulin if patient is able to bring in his own supply Insulin regimen - would like patient to utilize U500 home dosing at [facility] Continue Dexcom G7 CGM Likely continue [...] via secure chat or page us at [phone] during 7a-7p, Thursday-Thursday. For after hours please [...] Ongoing, Progressing Intervention: Promote Activity and Functional [place] Flowsheets Taken 05/14/2025 0946 Self-Care Promotion: independence encouraged BADL personal objects within reach BADL personal routines maintained meal set-up provided Taken 05/14/2025 0800 Activity Assistance Provided: assistance, stand-by assistance, 2 people Taken 05/13/2025 0931 Adaptive Equipment Use: used independently Problem: Self-Care Deficit Goal: Improved Ability to Complete Activities of Daily Living Outcome: Ongoing, Progressing Intervention: Promote Activity and Functional [place] Flowsheets Taken 05/14/2025 0946 Self-Care Promotion: independence [...] has been following with urology outpatient at [facility]. They have postulated this to be related to his diabetes and have had several voiding trials which have failed. Also has un dergone proctoscopy (?) which was normal. Started on flomax several weeks BANQUET LEAD and this has not beenhelpful. and he [...] plan and management with patient. Selin Lee Stockroom Keeper Division of Hospital Medicine [facility] * Care Plan - Asiya Nix RN [...] Nix RN Outcome: Ongoing, Progressing 05/13/20252150 by Asiay Nix RN Outcome: Ongoing, Progressing Problem: Mobility [...] Pressure in Desired Range 05/13/20252153 by Asiya Nix RN Outcome: Ongoing, Progressing Note: Blood pressure monitored 05/13/20252150 by Asiya Nix RN Outcome: [...] Ongoing, Progressing Intervention: Promote Activity and Functional [place] Flowsheets (Taken 05/13/20251999) Activity Assistance Provided: assistance, 2 people Self-Care Promotion: independence encouraged * Progress Notes - Benjamin White MBBS - 05/13/2025 4:42 PM EDT Endocrine [...] -Diabetes education: completed 05/10 -Follow-up plan: home extension service supervisor - Anette Kendall -Tentative discharge recommendations: -pt [...] at $35 per vial. Also discussed contacting [employer] directly for the financial assistance program. -patient with plans to discharge to [facility] once able - need to check with [facility] to see if they are okay with utilizing U500 insulin if patient is able to bring in his own supply Insulin regimen - would like patient to utilize U500 home dosing at [facility] Continue Dexcom G7 CGM Likely continue [...] via secure chat or page us at [phone] during 7a-7p, Thursday-Thursday. For after hours please [...] Ongoing, Progressing Intervention: Promote Activity and Functional [place] Flowsheets Taken 05/13/2025930 Adaptive Equipment Use: used [...] has been following with urology outpatient at [facility]. They have postulated this to be related to his diabetes and have had several voiding trials which have failed. Also has un dergone proctoscopy (?) which was normal. Started on flomax several weeks BANQUET LEAD and this has not beenhelpful. and he [...] plan and management with patient. Selin Lee Stockroom Keeper Division of [facility] Medicine [facility] * Care Plan - Genaro Haritha Yehuda [...] Ongoing, Progressing Intervention: Promote Activity and Functional [place] Flowsheets (Taken 05/12/20252128) Activity Assistance Provided: assistance, 2 people Self-Care Promotion: independence encouraged BADL personal objects within reach BADL personal routines maintained meal set-up provided * Progress Notes - Max Alexander - 05/12/2025 4:32 PM EDT Case Management Adult Progress Note Gonzalo Smalls 49 y.o. male CSN: [id number] Admission: 04/27/2025 9:29 PM Primary Problem: Diabetic foot ulcer Anticipated Discharge Date: TBD Plan of care reviewed with pt's care team; and per MD, pt is medically ready for discharge pending placement. SW sent [address] [facility]. SW will continue to follow-up with pt's MD and care team on their progress and discharge plan. Max Alexander, SECRETARIAL TEACHER, SENIOR IT ASSISTANT Senior Hydrologic Modeler/Case Management [facility] * Progress Notes - Selin Lee [...] has been following with urology outpatient at [facility]. They have postulated this to be related to his diabetes and have had several voiding trials which have failed. Also has un dergone proctoscopy (?) which was normal. Started on flomax several weeks BANQUET LEAD and this has not beenhelpful. and he [...] [facility] labs, [facility]als[facility]. Current condition is not at [...] plan and management with patient. Selin Lee Stockroom Keeper Division of Hospital Medicine [facility] * Progress Notes - Lynda Choudhury, KEYBOARD SPECIALIST - 05/12/2025 12:58 PM EDT Endocrine - [...] (H) 05/10/2025 I reviewed bg tracing in [facility] glucose timeline 05/12/25 ASSESSMENT Hospital Course: Gonzalo [...] mellitus - type 2 -Home medications: CGM: Third Chicken G7 Insulin regimen: U500 insulin: prescription for [...] -Diabetes education: completed 05/10 -Follow-up plan: home extension service supervisor - Anette Kendall -Tentative discharge recommendations: -pt will need close monitoring by rehab facility provider as changes in diet and activity level maylead to changes in glycemic patterns and insulin requirement NOTE: -patient reports that once the new year hits, he worries about the cost of U500 insulin --> discussed cost through [employer] - should be able to get vials of U500 at $35 per vial. Also discussed contacting [employer] directly for the financial assistance program. -patient with plans to discharge to [place] once able - need to check with [facility] to see if they are okay with utilizing U500 insulin if patient is able to bring in his own supply Insulin regimen - would like patient to utilize U500 home dosing at [facility] Continue Dexcom G7 CGM Likely continue [...] via secure chat or page us at [phone] during 7a-7p, Thursday-Thursday. For after hours please [...] 1. Other chronic osteomyelitis of right foot ([facility]) 2. Diabetic foot ulcer with osteomyelitis [...] remission, Anxiety disorder, unspecified, Arthritis, Atrial fibrillation ([facility]/HCC), CAP (community acquired pneumonia) (05/19/2024), Cellulitis [...] understanding. Participants in Care Family/Caregiver Present: No Transit Specialist: Not Applicable Presentation Oxygen Therapy: Supplemental oxygen [...] of Function Receives Help From: Spouse Mobility [place]: Independent gait with device ADL Performance: Needs assistance Bathing: Needs assist Upper Body Dressing: Needs assist Lower Body Dressing: Needs assist Grooming: Needs assist Toileting: Independent Eating: Independent Home Management Skills: Needs assist Patient/Family Goals Return home at [facility] Objective Pain Pt reported 7/10 pain in [...] Mobility Bed Mobility Exam: Scooting/Bridging Level of [place]: Contact guard (scooting hips forward to edge of bed) Physical/Nonphysical Assist: Verbal Cues, Minimal cues Assistive Device: Overhead trapeze Bed Mobility Exam: Supine to Sit Level of [place]: Minimum assist (75% patient's effort) Physical/Nonphysical Assist: HOB elevated, Verbal Cues Assistive Device: Overhead trapeze Bed Mobility Exam: Sit to Supine Level of [place]: Stand-by assist Physical/Nonphysical Assist: Verbal Cues, Minimal cues Assistive Device: Overhead trapeze Transfers Transfer Exam: Sit to stand Level of [place]: Maximum assist (25% patient's effort) (x3 reps from edge of bed, good adherence to NWB RLE) Physical/Nonphysical Assist: Verbal Cues, Nonverbal cues (demo/gestures), Additional assist utilized for safety Assistive Device: Walker, rolling (bariatric) Transfer Exam: Stand to Sit Level of [place]: Maximum assist (25% patient's effort) Physical/Nonphysical Assist: [...] climbing 3-5 steps with a railing?: Unable [facility] 6-Clicks Mobility Assessment Total : 11 Assessment [...] session. Participants in Care Family/Caregiver Present: No Transit Specialist: Not Applicable Presentation Oxygen Therapy: Supplemental oxygen [...] of Function Receives Help From: Spouse Mobility [place]: Independent gait with device ADL Performance: Needs [...] Mobility Bed Mobility Exam: Scooting/Bridging Level of [place]: Contact guard (scooting hips forward to edge of bed) Physical/Nonphysical Assist: Verbal Cues, Minimal cues Bed Mobility Exam: Supine to Sit Level of [place]: Minimum assist (75% patient's effort) Physical/Nonphysical Assist: HOB elevated, Verbal Cues Assistive Device: Overhead trapeze Bed Mobility Exam: Sit to Supine Level of [place]: Stand-by assist Physical/Nonphysical Assist: Verbal Cues, Minimal cues Assistive Device: Overhead trapeze Transfers Transfer Exam: Sit to stand Level of [place]: Maximum assist (25% patient's effort) (x3 reps from edge of bed, good adherence to NWB RLE) Physical/Nonphysical Assist: Verbal Cues, Nonverbal cues (demo/gestures), Additional assist utilized for safety Assistive Device: Walker, rolling (bariatric) Transfer Exam: Stand to Sit Level of [place]: Maximum assist (25% patient's effort) Physical/Nonphysical Assist: [...] upper extremity support, Left upper extremity support ([facility] RW) Static Standing-Level of Assistance: Maximum assistance [...] x3 reps of sit to stand to [facility] with max Ax2 persons each time, able [...] Where Assessed: Other (Comment) (in stance at [facility] level) Toileting Interventions: Pt with small incontinent BM, required dep A for hygiene to buttocks in stance at [facility] level with assistance from 2nd person needed [...] a helper. 5 Set-up or Clean-up Assistance [place] sets up or cleans up; patient completes activity. [place] assists only prior to or following the activity. 4 Supervision or touching assistance [place] provides verbal cues and/or touching/steadying and/or contact guard assistance as patient completes activity. Assistance may be provided throughout the activity or intermittently. 3 Partial/Moderate Assistance [place] does LESS THAN HALF the effort. [place] lifts, holds or supports trunk or limbs, but provides less than half the effort. 2 Substantial/Maximal Assistance [place] does MORE THAN HALF the effort. [place] lifts or holds trunkor limbs and provides more than half the effort. 1 Dependent [place] does ALL of the effort. Patient does [...] Note Gonzalo Smalls 49 y.o. male CSN: [id number] Admission: 04/27/2025 9:29 PM Primary Problem: Diabetic foot ulcer Anticipated Discharge Date: TBD RN CM informed by bedside RN that pt's weight was obtained and current weight is 244.3kg (538.5 lbs)- due to pt being over 500 lbs [facility] is not able to accept [...] Note Gonzalo Smalls 49 y.o. male CSN: [id number] Admission: 04/27/2025 9:29 PM Primary Problem: Diabetic foot ulcer Anticipated Discharge Date: TBD LOLA TOVAR f/ u with [facility]- admission at [facility]. [facility] is stating that they [...] (H) 05/09/2025 I reviewed bg tracing in [facility] glucose timeline 05/11/25 ASSESSMENT Hospital Course: Gonzalo [...] -Diabetes education: completed 05/10 -Follow-up plan: home extension service supervisor - Anette Kendall -Tentative discharge recommendations: -pt will need close monitoring by rehab facility provider as changes in diet and activity level maylead to changes in glycemic patterns and insulin requirement NOTE: -patient reports that once the new year hits, he worries about the cost of U500 insulin --> discussed cost through [employer] - should be able to get vials of U500 at $35 per vial. Also discussed contacting [employer] directly for the financial assistance program. -patient with plans to discharge to [facility] once able - need to check with [facility] to see if they are okay with utilizing U500 insulin if patient is able to bring in his own supply Insulin regimen - would like patient to utilize U500 home dosing at [facility] Continue Dexcom G7 CGM Likely continue [...] via secure chat or page us at [phone] during 7a-7p, Thursday-Thursday. For after hours please [...] has been following with urology outpatient at [facility]. They have postulated this to be related to his diabetes and have had several voiding trials which have failed. Also has un dergone proctoscopy (?) which was normal. Started on flomax several weeks BANQUET LEAD and this has not beenhelpful. and he [...] plan and management with patient. Selin Lee Stockroom Keeper Division of [facility] Medicine [facility] * Care Plan - Haritha Lam Yehuda [...] Intervention: Promote Wound Healing Flowsheets (Taken 05/10/2025 6580) Sleep/Rest Enhancement: awakenings minimized consistent schedule promoted [...] has been following with urology outpatient at [facility]. They have postulated this to be related to his diabetes and have had several voiding trials which have failed. Also has un dergone proctoscopy (?) which was normal. Started on flomax several weeks BANQUET LEAD and this has not beenhelpful. and he [...] [facility] labs[facility]als[facility]. Current condition is not at [...] plan and management with patient. Selin Lee Stockroom Keeper Division of Hospital Medicine [facility] * Progress Notes - Chayo Jennings RN - 05/10/2025 8:59 AM EDT Case Management Adult Progress Note Gonzalo Smalls 49 y.o. male CSN: [id number] Admission: 04/27/2025 9:29 PM Primary Problem: Diabetic foot ulcer Anticipated Discharge Date: TBD LOLA CM f/u on [facility] referral and was told that [facility] physician declined pt's acceptance to [facility]. RN CMvisited with the pt [...] mellitus - type 2 -Home medications: CGM: Third Chicken G7 Insulin regimen: U500 insulin: prescription for [...] -Diabetes education: completed 05/10 -Follow-up plan: home extension service supervisor - Anette Kendall -Tentative discharge recommendations: -pt will need close monitoring by rehab facility provider as changes in diet and activity level maylead to changes in glycemic patterns and insulin requirement NOTE: -patient reports that once the new year hits, he worries about the cost of U500 insulin --> discussed cost through [employer] - should be able to get vials of U500 at $35 per vial. Also discussed contacting [employer] directly for the financial assistance program. -patient with plans to discharge to [facility] once able - need to check with [facility] to see if they are okay with utilizing U500 insulin if patient is able to bring in his own supply Insulin regimen - would like patient to utilize U500 home dosing at [facility] Continue Dexcom G7 CGM Likely continue [...] team via secure chat orpage us at [phone] during 7a-7p, Thursday-Thursday. For after hours please [...] sit <> stand transfers Visitors Present none Transit Specialist (if applicable) N/a OBJECTIVE PAIN Pt endorses [...] Mobility Bed Mobility Exam: Scooting/Bridging Level of [place]: Stand-by assist Physical/Nonphysical Assist: Verbal Cues, Minimal cues Assistive Device: Overhead trapeze Bed Mobility Exam: Supine to Sit Level of [place]: Stand-by assist Physical/Nonphysical Assist: Verbal Cues, Minimal cues, HOB elevated Assistive Device: Overhead trapeze Bed Mobility Exam: Sit to Supine Level of [place]: Stand-by assist Physical/Nonphysical Assist: Verbal Cues, Minimal cues Assistive Device: Overhead trapeze Transfers Transfer Exam: Sit to stand Level of [place]: Maximum assist (25% patient's effort) Physical/Nonphysical Assist: Set-up required, Additional assist utilized for safety, Maximal cues, Verbal Cues, Nonverbal cues (demo/gestures) Assistive Device: Hand held assist Transfer Exam: Stand to Sit Level of [place]: Maximum assist (25% patient's effort) Physical/Nonphysical Assist: [...] session Participants in Care Family/Caregiver Present: No Transit Specialist: Not Applicable Presentation Oxygen Therapy: Supplemental oxygen [...] sequencing Bed Mobility Exam: Scooting/Bridging Level of [place]: Stand-by assist Physical/Nonphysical Assist: Verbal Cues, Minimal cues Assistive Device: Overhead trapeze Bed Mobility Exam: Supine to Sit Level of [place]: Stand-by assist Physical/Nonphysical Assist: Verbal Cues, Minimal cues, HOB elevated Assistive Device: Overhead trapeze Bed Mobility Exam: Sit to Supine Level of [place]: Stand-by assist Physical/Nonphysical Assist: Verbal Cues, Minimal [...] placement, sequencing, weight shifting, appropriate use of SAND SCREENER, and maintaining NWB on LLE. Tactile cues provided to assist in sequencing and weight shifting. Transfer Exam: Sit to stand Level of [place]: Maximum assist (25% patient's effort) Physical/Nonphysical Assist: Set-up required, Additional assist utilized for safety, Maximal cues, Verbal Cues, Nonverbal cues (demo/gestures) Assistive Device: Hand held assist Transfer Exam: Stand to Sit Level of [place]: Maximum assist (25% patient's effort) Physical/Nonphysical Assist: [...] assistance Static Standing - Interventions: Standing w SAND SCREENER Therapeutic Activity (40 minutes) See bed mobility, balance, and transfers sections for more detail. Standardized Assessments [facility] 6-Clicks Mobility Assessment Difficulty patient has turning [...] climbing 3-5 steps with a railing?: Unable [facility] 6-Clicks Mobility Assessment Total : 13 Assessment [...] Note Gonzalo Smalls 49 y.o. male CSN: [id number] Room/Bed 117/117A Nutrition evaluation type: follow-up Reason [...] Weight Evaluation: Extreme Obesity (BMI > 40) [place] Body Weight (kg): 80.9 Percent [place] Body Weight: 311 Adjusted Body Weight (kg): [...] Regular Adult Carbohydrate Restriction: Consistent CHO 2 (1423-4319 Steven, 80 g/meal) Adult Sodium Restriction: 2,000 mg Na Percent Meals Eaten (%): 100% of meals Diet Experience and Nutrition History: Diet Education Provided: Will monitor Pertinent home medications: Albuterol, Bumex, Insulin, Metformin, Ozempic, Aldactone Amish needs: Nutrition Focused Physical Exam: Physical exam [...] chloride * Progress Notes - Lynda Choudhury, KEYBOARD SPECIALIST - 05/09/2025 8:09 AM EDT Endocrine - [...] glucose timeline 05/09/25 ASSESSMENT Hospital Course: Gonzalo Smalls is a [...] continue to assess need -Follow-up plan: home extension service supervisor - Anette Kendall -Tentative discharge recommendations: NOTE: -patient reports that once the new year hits, he worries about the cost of U500 insulin -patient with plans to discharge to [facility] once able - need to check with [facility] to see if they are okay with utilizing U500 insulin if patient is able to bring in his own supply Insulin regimen - would like patient to utilize U500 home dosing at [facility] Continue Dexcom G7 CGM Likely continue [...] via secure chat or page us at [phone] during 7a-7p, Thursday-Thursday. For after hours please [...] has been following with urology outpatient at [facility]. They have postulated this to be related to his diabetes and have had several voiding trials which have failed. Also has un dergone proctoscopy (?) which was normal. Started on flomax several weeks BANQUET LEAD and this has not beenhelpful. and he [...] Ready for Discharge:Ready now, awaiting placement to [facility] Selin Lee Stockroom Keeper Division of Hospital Medicine [facility] * Care Plan - Checo Monson - [...] continue to assess need -Follow-up plan: home extension service supervisor - Anette Kendall -Tentative discharge recommendations: NOTE: -patient reports that once the new year hits, he worries about the cost of U500 insulin -patient with plans to discharge to [facility] once able - need to check with [facility] to see if they are okay with utilizing U500 insulin if patient is able to bring in his own supply Insulin regimen - would like patient to utilize U500 home dosing at [facility] Continue Dexcom G7 CGM Likely continue [...] via secure chat or page us at [phone] during 7a-7p, Thursday-Thursday. For after hours please [...] Note Gonzalo Smalls 49 y.o. male CSN: [id number] Admission: 04/27/2025 9:29 PM Primary Problem: Diabetic [...] acute rehab. RNCM awaiting MD approval from [facility]. Liaison will reach out with answer. Will continue to follow. RNCM will continue to monitor for further discharge needs. Mayra Apodaca RN * Care Plan - Jeevan Shah RN - 05/08/2025 12:43 PM EDT Problem: Wound Goal: Optimal Wound Healing Outcome: Ongoing, Progressing Intervention: Promote Wound Healing Note: See recs, cont wound vac Patient evaluated by [facility] nurse, individualized recommendations placed and care plan [...] 05/08/2025 10:19 AM Wound Image Wound Assessment [place];Red (moist) Margins Well-defined edges Saba-Wound Assessment Intact [...] Shah RN CWOCN 05/08/2025 12:39 PM * Tih Chavarria RN - 05/08/2025 10:55 AM EDT Images from the original note were not included. Low-Carb Diets: How Do They Work - Video Watch this video to learn about the health benefits of a low carb diet. To view the video go to this web address: https://bit.ly/7M82UP0 Or, scan this QR code with your smart phone ?? [facility] [facility] * Thi Chavarria RN - 05/08/2025 10:55 AM EDT Images from the original note were not included. Type 2 diabetes: 7 Ways to Prevent Long-Term Complications - Video Watch this video to [...] the video go to this web address: https://bit.ly/8P0eF5u Or, scan this QR code with your [...] to gently smooth the nail. Have a whittling room operator trim your nails if you can't see [...] remove corns, calluses, or warts by yourself. Yynd-uha-wrzfrwr products can burn or damage your skin. [...] your primary care doctor or by a whittling room operator. This is a doctor who specializes in foot care. Some diabetes centers have regular foot clinics. Last Reviewed Date: 2024 00:00:00 ?? 0749-5574 [employer]. All rights reserved. This information is not [...] the video go to this web address: [email or web address] Or, scan this QR code with your smart phone ?? [facility] [facility] * Consults - Beatriz Hu DO - 05/08/2025 8:38 AM EDTAssociated Order(s): Inpatient consult to Urology Inpatient consult to Urology Consult performed by: Beatriz Hu DO Consult ordered by: Diane Guzman MD [facility] Urology Consult Note 05/08/25 Service Requesting Consultation: Hospital Medicine CC: urinary retention HPI: Gonzalo Smalls is a 49 y.o. male with a past urologic history of urinary retention, recurrent UTIs,BPH, morbid obesity who presented to [facility] ED with diabetic foot ulcer. On 12/21/2024 [...] states. After this he presented to an [facility] urologist Dr. Painting who stated to [...] (NEURONTIN) 600 mg, 3 times daily HYDROcodone-acetaminophen ([place]) 10-325 MG tablet 1 tablet, Every 6 hours PRN Insulin Pen Needle (Pen [place]) 31G X 5 MM misc USE TO [...] obesity and uncontrolled diabetes who presented to [facility] ED with diabetic foot ulcer. On 12/21/2024 patient was called by urology to schedule an appointment and he stated that he would like to schedule closer to home. AF and HDS. Labs are WBC 6.86, hgb 8.9, cr 0.71.No urine studies have been obtained on. No recent urologic imaging. Urology was consulted for urinary retention with barber in place. Barber was exchanged around 7 days ago per patient and per staff. On exam it is draining clear yellow urine from 18Fr. He states that around 3 months ago he started to have dribbling from urethra and was found to have pyelonephritis and hydronephrosis due to incomplete emptying he states. After this he presented to an [facility] urologist Dr. Painting who stated to [...] established care with a Dr. Mendenhall an [facility] urologist as this is closer to [...] established care with a Dr. Mendenhall an [facility] urologist as this is closer to [...] has been following with urology outpatient at [facility]. They have postulated this to be related to his diabetes and have had several voiding trials which have failed. Also has un dergone proctoscopy (?) which was normal. Started on flomax several weeks BANQUET LEAD and this has not beenhelpful. and he [...] Mobility Bed Mobility Exam: Scooting/Bridging Level of [place]: Stand-by assist Physical/Nonphysical Assist: Verbal Cues Bed Mobility Exam: Supine to Sit Level of [place]: Contact guard Physical/Nonphysical Assist: Set-up required, Verbal Cues, Minimal cues Bed Mobility Exam: Sit to Supine Level of [place]: Minimum assist (75% patient's effort) Physical/Nonphysical Assist: Set-up required, Verbal Cues, Minimal cues Transfers Transfer Exam: Sit to stand Level of [place]: (Pt attempted with use of bariatric RW; [...] return to supine. Therapeutic Exercise Access Code: [email or web address] HEP printed and pt received copy with [...] provided based on observable deficits.* Level of [place] Interventions Grooming Patient demo's adequate BUE strength/ROM [...] maintain WB status. FUNCTIONAL MOBILITY Level of [place] Physical/Non-physical Assist Adaptive Equipment Utilized Scooting/ Bridging [...] Appearance Posture: Within Functional Limits Level of [place] Balance Support Static Sit Standby assist Feet supported Dynamic Sit Standby assisst Feet supported THERAPEUTIC EXERCISE INTERVENTIONS (10 minutes) Treatment Details The patient was educated re: implementation of BUE HEP in order to target muscle groups necessary for functional mobility and ADL independence. HEP printed and each exercise reviewed, pt verbalized understanding. Hiddenbed Access Details (if appropriate) Access Code: [email or web address] URL: [email or web address] Date: 05/07/25 Exercises Included - Seated Elbow [...] has been following with urology outpatient at [facility]. They have postulated this to be related to his diabetes and have had several voiding trials which have failed. Also has un dergone proctoscopy (?) which was normal. Started on flomax several weeks BANQUET LEAD and this has not beenhelpful. and he [...] now * Progress Notes - Aileen Leonardo, KEYBOARD SPECIALIST - 05/07/2025 7:33 AM EDT Endocrine - [...] mellitus - type 2 -Home medications: CGM: DexJoshfire G7 Insulin regimen: U500 insulin: prescription for [...] continue to assess need -Follow-up plan: home extension service supervisor - Anette Kendall -Tentative discharge recommendations: NOTE: -patient reports that once the new year hits, he worries about the cost of U500 insulin -patient with plans to discharge to [facility] once able - need to check with [facility] to see if they are okay with utilizing U500 insulin if patient is able to bring in his own supply Insulin regimen - would like patient to utilize U500 home dosing at [facility] Continue Dexcom G7 CGM Likely continue [...] team via secure chat orpage us at [phone] during 7a-7p, Thursday-Thursday. For after hours please [...] has been following with urology outpatient at [facility]. They have postulated this to be related to his diabetes and have had several voiding trials which have failed. Also has un dergone proctoscopy (?) which was normal. Started on flomax several weeks BANQUET LEAD and this has not beenhelpful. and he [...] now * Progress Notes - Aileen Leonardo, KEYBOARD SPECIALIST - 05/06/2025 7:46 AM EDT Endocrine - Diabetes Consult follow-up: Subjective: 24 hour update: -patient discharging to [facility] around Thursday or Thursday - need to check with [facility] to see if they are okay [...] (H) 05/04/2025 I reviewed bg tracing in [facility] glucose timeline 05/06/25 ASSESSMENT Hospital Course: Gonzalo [...] continue to assess need -Follow-up plan: home extension service supervisor - Anette Kendall -Tentative discharge recommendations: -patient discharging to [facility] around Thursday or Thursday - need to check with [facility] to see if they are okay [...] team via secure chat orpage us at [phone] during -7p, Thursday-Thursday. For after hours please [...] is in abx, has his CHG and [place] wipes done in this shift Problem: Mobility [...] vascular surgery; wound vac applied 05/03 by [facility] Wound Assessment: Wound 05/01/25 Surgical Toe (Comment which one) Anterior;Right (Active) Date First Assessed/Time First Assessed: 05/01/25 0805 Present on Original Admission: No Hand Hygiene Completed: Yes Primary Wound Type: Surgical Location: Toe (Comment which one) Wound Location Orientation: Anterior;Right Assessments 05/05/2025 11:44 AM Wound Image Wound Assessment [place];Red (moist , full thickness) Margins Well-defined edges [...] no orders noted for wound vac, maessaged [facility] team for guidance. Orders placedfor nursing to [...] wound vac in use Patient evaluated by [facility] nurse, individualized recommendations placed and care plan interventions updated; see wound care note for details regarding recommendations to support optimal wound healing. * Progress Notes - Mayra Apodaca RN - 05/05/2025 12:30 PM EDT Case Management Adult Progress Note Gonzalo Smalls 49 y.o. male CSN: [id number] Admission: 04/27/2025 9:29 PM Primary Problem: Diabetic [...] No MDRO isolated 04/27/25 Blood culture NGTD [facility] Culture Data: - 04/25/25: Blood culture NGTD [...] pathology. Patient is planned to discharge to [facility]. Recommend close follow-up with vascular [...] PA-C Division of Infectious Diseases Available by Showpitch History, assessment, and plan discussed with ID [...] 8 Units Subcutaneous BID PRN Sarah Martinez, KEYBOARD SPECIALIST insulin NPH (Isophane) (HumuLIN N,NovoLIN N) injection [...] mellitus - type 2 -Home medications: CGM: Third Chicken G7 Insulin regimen: U500 insulin: prescription for [...] via secure chat or page us at [phone] during 7a-7p, Thursday-Thursday. For after hours please [...] precautions. Bed Mobility Exam: Rolling/Turning Level of [place]: Contact guard Physical/Nonphysical Assist: Verbal Cues, Moderate cues Bed Mobility Exam: Scooting/Bridging Level of [place]: Stand-by assist Bed Mobility Exam: Supine to Sit Level of [place]: Contact guard Physical/Nonphysical Assist: Verbal Cues Bed Mobility Exam: Sit to Supine Level of [place]: Stand-by assist Patient performed rolling bilaterally for placement of lift pad. Transfers Transfer Exam: Sit to stand Level of [place]: (Patient unable to perform without engaging right [...] promote tempo and full ROM. Standardized Assessments [facility] 6-Clicks Mobility Assessment Difficulty patient has turning [...] climbing 3-5 steps with a railing?: Unable [facility] 6-Clicks Mobility Assessment Total : 12 Assessment [...] help from Spouse Level of Mobility Mobility [place] History of Falls ADL Performance Needs assistance [...] to therapy this date. Visitors Present No Transit Specialist (if applicable) OBJECTIVE PAIN Pain Score (0-10): [...] sba for bed mobility tasks. Level of [place] Adaptive Equipment Utilized Comments Feeding Grooming Setup washing face/hands Bathing Upper Body Dressing Lower Body Dressing Shoe Level of Assistance: Dependent Toileting IADLs Health Management Community Re-Entry BALANCE Postural Appearance INTERVENTIONS Level of [place] Balance Support Comments Static Sit Standby assist [...] weight shifting to promote safety. Level of [place] Physical/Non-physical Assist Adaptive Equipment Utilized Rolling/ Turning [...] No MDRO isolated 04/27/25 Blood culture NGTD [facility] Culture Data: - 04/25/25: Blood culture NGTD [...] PA-C Division of Infectious Diseases Available by Showpitch History, assessment, and plan discussed with ID [...] mL IVPB (vial adapter required) 2 g [id number] Diane Guzman MD 36.7 mL/hr at 05/03/25 [...] Units Subcutaneous TID with meals Sarah Martinez, KEYBOARD SPECIALIST 30 Units at 05/03/251810 Insulin Lispro (Admelog, HumaLOG) 100 UNIT/ML injection 8 Units 8 Units Subcutaneous BID PRN Sarah Martinez P, KEYBOARD SPECIALIST insulin NPH (Isophane) (HumuLIN N,NovoLIN N) injection 50 Units 50 Units Subcutaneous BID Sarah Martinez P, KEYBOARD SPECIALIST 50 Units at 05/03/252043 ipratropium-albuterol (Duo-Neb) 0.5-2.5 [...] (H) 05/02/2025 I reviewed bg tracing in [facility] glucose timeline 05/04/25 ASSESSMENT Hospital Course: Gonzalo [...] mellitus - type 2 -Home medications: CGM: DexJoshfire G7 Insulin regimen: U500 insulin: prescription for [...] continue to assess need -Follow-up plan: home extension service supervisor - Anette Kendall -Tentative discharge recommendations: Insulin [...] team via secure chat orpage us at [phone] during 7a-7p, Thursday-Thursday. For after hours please [...] #Chronic CHRF-home 2L HTN-BB AF-AC, dilt HF-bumex, garcie HLD-statin COPD-inhalers A/D-vraylar, lorazepam, venlafaxine Insomnia-trazadone GERD--PPI [...] Pressure in Desired Range 05/03/20251841 by Kylee Gonzalez RN Outcome: Ongoing, Progressing 05/03/20251841 by Kylee Gonzalez RN Outcome: Ongoing, Progressing Goal: Maintenance of Osteoarthritis Symptom Control 05/03/20251841 by Kylee Gonzalez RN Outcome: Ongoing, Progressing 05/03/20251841 by Kylee Gonzalez RN Outcome: Ongoing, Progressing Intervention: Maintain Osteoarthritis Symptom Control Flowsheets Taken 05/03/20251841 by Kyele Gonzalez RN Activity Management: activity encouraged activity [...] Pain Control and Function 05/03/20251841 by Kylee Gonzaelz RN Outcome: Ongoing, Progressing 05/03/20251841 by Kylee Gonzalez RN Outcome: Ongoing, Progressing * Progress Notes - Leidy Velasco MD - 05/03/2025 12:25 PM EDT Images from the original note were not included. [facility] Department of Surgery Division of Vascular [...] an 49 y.o. male who presented to [facility] 04/27/2025 with diabetic foot ulcer now s/pamputation [...] Note Gonzalo Smalls 49 y.o. male CSN: [id number] Admission: 04/27/2025 9:29 PM Primary Problem: Diabetic [...] No MDRO isolated 04/27/25 Blood culture NGTD [facility] Culture Data: - 04/25/25: Blood culture NGTD [...] PA-C Division of Infectious Diseases Available by 23press Chat History, assessment, and plan discussed with [...] Units Subcutaneous TID with meals Sarah Martinez, KEYBOARD SPECIALIST 30 Units at 05/03/25 09 Insulin Lispro (Admelog, HumaLOG) 100 UNIT/ML injection 6 Units 6 Units Subcutaneous BID PRN Sarah Martinez, KEYBOARD SPECIALIST insulin NPH (Isophane) (HumuLIN N,NovoLIN N) injection [...] Days * Progress Notes - Sarah Martinez, KEYBOARD SPECIALIST - 05/03/2025 7:55 AM EDT Endocrine - [...] continue to assess need -Follow-up plan: home extension service supervisor - Anette Kendall -Tentative discharge recommendations: Insulin [...] via secure chat or page us at [phone] during 7a-7p, Thursday-Thursday. For after hours please [...] from the original note were not included. [facility] Department of Surgery Division of Vascular [...] degrees Note: See recs Patient evaluated by [facility] nurse, individualized recommendations placed and care plan [...] new issues or concerns Jeevan Shah RN [facility] 05/02/2025 12:54 PM * Query Clarification [...] No MDRO isolated 04/27/25 Blood culture NGTD [facility] Culture Data: - 04/25/25: Blood culture NGTD [...] PA-C Division of Infectious Diseases Available by 23press Chat History, assessment, and plan discussed with [...] Subcutaneous TID with meals Sarah Martinez P, KEYBOARD SPECIALIST 24 Units at 05/02/25 0912 insulin NPH (Isophane) (HumuLIN N,NovoLIN N) injection 42 Units 42 Units Subcutaneous BID Sarah Martinez P, KEYBOARD SPECIALIST ipratropium-albuterol (Duo-Neb) 0.5-2.5 mg/3 mL nebulizer solution [...] Note Gonzalo Smalls 49 y.o. male CSN: [id number] Room/Bed 117/117A Nutrition evaluation type: assessment Reason [...] at bedside. Good appetite both now and BANQUET LEAD. No known unintentional weight changes, UBW 570#. [...] Weight Evaluation: Extreme Obesity (BMI > 40) [place] Body Weight (kg): 80.9 Percent [place] Body Weight: 311 Adjusted Body Weight (kg): [...] Regular Adult Carbohydrate Restriction: Consistent CHO 1 (1411-6012 Steven, 65 g/meal) Adult Sodium Restriction: 2,000 mg Na Percent Meals Eaten (%): 68% avg x 5 meals Diet Experience and Nutrition History: Diet Education Provided: Will monitor Pertinent home medications: Albuterol, Bumex, Insulin, Metformin, Ozempic, Aldactone Amish needs: Nutrition Focused Physical Exam: Physical exam [...] from the original note were not included. [facility] Department of Surgery Division of Vascular [...] snacking overnight while watching the games including [employer], goldfish, ritz crackers and other snacks -no [...] treatment -plan and management discussed with patient, certified breastfeeding educator, bedside RN NOTE: -Patient utilizes U500 insulin pen at home. With the U500 pen, a conversion is not needed. Typically patient's required a 70% reduction in home U500 dosing. 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: home extension service supervisor - Anette Kendall -Tentative discharge recommendations: Insulin [...] via secure chat or page us at [phone] during 7a-7p, Thursday-Thursday. For after hours please [...] consulted and rec amputation vs transfer to [facility] for podiatry input about foot salvage : cannot transfer to [facility] given weight limit, pod team cannot come [...] Note Gonzalo Smalls 49 y.o. male CSN: [id number] Admission: 04/27/2025 9:29 PM Primary Problem: Diabetic [...] nursing staff. I have notified senior resident/attending media relations coordinator with any issues or concerns. Leidy Velasco [...] 10:17 AM EDT Associated attestation - Holly Spiecr MD - 05/01/2025 10:17 AM EDT I [...] bony pathology, duration TBD - Will contact [facility] tomorrow to check on urine culture results - Please obtain adult ID screening labs: Hep A IgG, Hep B sAb, Hep B sAg, and Hep B total core Ab - Plan of care and recommendations discussed with patient's primary provider Thank you for allowing us to participate in this patient's care. ID will follow. Janelle Phan PA-C Division of Infectious Diseases Available by Showpitch History, assessment, and plan discussed with ID [...] Daily Sy De La Fuente APRN, DNP [Transfer [...] (Sublimaze) injection Intravenous PRN Muzic, Og A, SENIOR MECHANICAL ESTIMATOR 25 mcg at 05/01/25 0826 lactated Ringer's infusion Intravenous Continuous PRN Muzic, Og A, SENIOR MECHANICAL ESTIMATOR New Bag at 05/01/25 0728 midazolam (Versed) injection Intravenous PRN Muzic, Og A, SENIOR MECHANICAL ESTIMATOR 1 mg at 05/01/25 0757 [2] Allergies [...] respiratory distress. Comments: Nasal cannula Genitourinary: Comments: Sunil Musculoskeletal: General: No swelling. Skin: General: Skin [...] mellitus - type 2 -Home medications: CGM: Third Chicken G7 Insulin regimen: U500 insulin: prescription for [...] continue to assess need -Follow-up plan: home extension service supervisor - Anette Kendall -Tentative discharge recommendations: Insulin [...] team via secure chat orpage us at [phone] during 7a-7p, Thursday-Thursday. For after hours please [...] AM EDT Operative Note Date: 05/01/25 Location: [facility] Name: Gonzalo Smalls, : 1975, Diagnoses: Pre-op Diagnosis Other chronic osteomyelitis of right foot (CMS/HCC) Post-op Diagnosis Other chronic osteomyelitis of right foot (CMS/HCC) Procedure(s): Right 5th toe ray amputation Attending Surgeon(s): * Mary Vicente - Primary Molecular Pathologist(s): * Paula Martinez MD - Resident - [...] the wound bed. This extended more than mcfp to the heel laterally. The underlying skin [...] consulted and rec amputation vs transfer to [facility] for podiatry input about foot salvage : cannot transfer to [facility] given weight limit, pod team cannot come [...] kg/m?? Labs and medications reviewed. Blood glucose [id number] Medications: Current Scheduled Medications[1] Current Continuous Medications[2] [...] continue to assess need -Follow-up plan: home extension service supervisor - Anette Kendall -Tentative discharge recommendations: Insulin [...] Diabetes and Metabolism [facility] Medically Ready for Discharge: [1] atorvastatin, [...] from the original note were not included. [facility] Department of Surgery Division of Vascular [...] He is unable to be transferred to [facility] for Podiatry due to weight Edited by: [...] 2LNC at night, recurrent UTIswho presented to [facility] with nonhealing right foot wound. Radiographs significant [...] kg/m?? Labs and medications reviewed. Blood glucose [id number] Medications: Current Scheduled Medications[1] Current Continuous [...] continue to assess need -Follow-up plan: home extension service supervisor - Anette Kendall -Tentative discharge recommendations: Insulin [...] Diabetes and Metabolism [facility] [1] atorvastatin, 40 mg, Oral, Nightly [...] rec amputation but we can transfer to [facility] for pod input about the surgery for the DM wound Vas team do not feel a debridement would sufficiently treat his wound. Reached out to APT team and plan to transfer him to [facility] Review of Systems Pain in right foot [...] consulted and rec amputation vs transfer to [facility] for podiatry input about foot salvage - [...] continue to assess need -Follow-up plan: home extension service supervisor - Anette Kendall -Tentative discharge recommendations: Insulin [...] team via secure chat orpage us at [phone] during 7a-7p, Thursday-Thursday. For after hours please contact the on-call Endocrine Fellow. Thank you for the opportunity to participate in this patient's care. - Reviewed notes by primary team and consulting services to determine appropriate plan of care as in the note. Medically Ready for Discharge: Cosigned by Raza Méndez MD at 04/30/2025 8:33 PM EDT Associated attestation - Raza Méndez MD - 04/30/2025 8:33 PM EDT [...] Note Gonzalo Smalls 49 y.o. male CSN: [id number] Admission: 04/27/2025 9:29 PM Primary Problem: Diabetic foot ulcer Assembly Supervisor reviewed chart and spoke with patient at bedside to complete this Initial Case Management Assessment. PCP: Malcolm Hayward APRN Emergency Contact: Extended Emergency Contact Information Primary Emergency Contact: Maggie Smalls Mobile Relation: Spouse Preferred language: Austrian Transit Specialist needed? No Insurance: Primary Visit Coverage Payer Plan Sponsor Code Group Number Group Name THIAGO SOTOMAYOR/[facility] [id number] Priceza Primary Visit Coverage Subscriber Subscriber ID Subscriber Name Subscriber SSN Subscriber Address [id number] GONZALO SMALLS [id number] [address] [facility] [place] [id number] Secondary Visit Coverage Payer Plan Sponsor Code Group Number Group Name MEDICARE MEDICARE A & B Secondary Visit Coverage Subscriber Subscriber ID Subscriber Name Subscriber SSN Subscriber Address [id number] GONZALO SMALLS [phone] [id number] Patient information: Primary Caregiver: Self Support System: Immediate family Daily Living Activities: Functional Status: Minimum assistance Living Arrangements: Spouse/Significant other, Children (daughter) Type of Residence: Private residence, Single Level (3 [address]) [address] [address] Smoker in the Home?: No Current DME: [...] line dressing changes Living Will/Advance Directive/Power of Survey Methodologist /Guardian: None Additional Comments: Patient admitted for [...] from the original note were not included. [facility] Department of Surgery Division of Vascular [...] night, recurrent UTIs who presented to the [facility] on 04/27/2025 with right foot wound. [...] file Social Connections: Unknown (04/24/2023) Received from [facility] Family and Community Support Help with Day-to-Day [...] History Administered Date(s) Administered Moderna COVID-19 Vaccine (Hall Tender) 12+ years 01/25/2021, 02/22/2021 Pneumococcal Conjugate PCV [...] a day. 09/05/21 Yes Provider, Historical HYDROcodone-acetaminophen ([place]) 10-325 MG tablet Take 1 tablet by [...] Yes Provider, Historical Insulin Pen Needle (Pen Ludowici) 31G X 5 MM misc USE TO [...] 2LNC at night, recurrent UTIswho presented to [facility] with nonhealing right foot wound. Radiographs significant [...] mL 125 mL Intravenous q15 min PRN yS De La Fuente APRN, DNP Or dextrose [...] Units Subcutaneous TID with meals Aileen Leonardo, KEYBOARD SPECIALIST 20 Units at 04/28/25 1155 insulin NPH [...] Oral Daily Sy De La Fuente APRN DNEISE 150 mgat 04/28/25 0848 Current Outpatient Medications [...] by mouth 3 times a day. HYDROcodone-acetaminophen ([place]) 10-325 MG tablet Take 1 tablet by [...] by mouth daily. Insulin Pen Needle (Pen Ludowici) 31G X 5 MM misc USE TO [...] [X] Family [ ] Friend [ ] Transit Specialist [X] Medical records HISTORY OF PRESENT ILLNESS: [...] and was treated in theemergency department at [facility] a few days ago where a PICC [...] in the ED 2-3 days ago at [facility]. I contacted OSH who report blood cultures [...] a day. 09/05/21 Yes Provider, Historical HYDROcodone-acetaminophen ([place]) 10-325 MG tablet Take 1 tablet by [...] Yes Provider, Historical Insulin Pen Needle (Pen Ludowici) 31G X 5 MM misc USE TO [...] Will follow-up blood and urine cultures from [facility] for further ID/susceptibilities, obtained 04/25 - Please obtain adult ID screening labs: Hep A IgG, Hep B sAb, Hep B sAg, and Hep B total core Ab - Plan of care and recommendations discussed with patient's primary provider Thank you for allowing us to participate in this patient's care. ID will follow. Janelle Phan PA-C Division of Infectious Diseases Available by Showpitch History, assessment, and plan discussed with ID [...] by mouth 3 times a day. HYDROcodone-acetaminophen ([place]) 10-325 MG tablet Take 1 tablet by [...] by mouth daily. Insulin Pen Needle (Pen Ludowici) 31G X 5 MM misc USE TO [...] back pain 04/22/2019 Hypertension 02/18/2019 Morbid obesity ([facility]) 12/24/2016 Procedures Past Medical History Patient has a past medical history of Acute kidney injury (05/19/2024), Alcohol abuse, in remission, Anxiety disorder, unspecified, Arthritis, Atrial fibrillation ([facility]), CAP (community acquired pneumonia) (05/19/2024), Cellulitis [...] in Care Family/Caregiver Present: Yes Family/Caregiver: Spouse Transit Specialist: Not Applicable Presentation Oxygen Therapy: None (Room [...] Needs assist Patient/Family Goals Return home at [facility]. Objective Pain Pt reports 7/10 pain in [...] pain. Bed Mobility Exam: Rolling/Turning Level of [place]: Maximum assist (25% patient effort) Physical/Nonphysical Assist: Verbal Cues, Moderate cues Assistive Device: Bed rails, Other (SAND SCREENER) Bed Mobility Exam: Scooting/Bridging Level of [place]: Maximum assist (25% patient's effort) (up in bed; Lester forward at EOB) Physical/Nonphysical Assist: Verbal Cues, Moderate cues Assistive Device: Bed rails Bed Mobility Exam: Supine to Sit Level of [place]: Maximum assist (25% patient's effort) Physical/Nonphysical Assist: Verbal Cues, Moderate cues, Set-up required, Additional assist utilized for safety Assistive Device: Other (SAND SCREENER) Bed Mobility Exam: Sit to Supine Level of [place]: Maximum assist (25% patient's effort) Physical/Nonphysical Assist: [...] space Standardized Assessments Standardized Assessments Standardized Assessments: [facility] 6-Clicks Mobility Assessment [facility] 6-Clicks Mobility Assessment Difficulty patient has turning [...] climbing 3-5 steps with a railing?: Unable [facility] 6-Clicks Mobility Assessment Total : 8 No [...] remission, Anxiety disorder, unspecified, Arthritis, Atrial fibrillation ([facility]), CAP (community acquired pneumonia) (05/19/2024), Cellulitis [...] CARE Subjective Pt reports Visitors Present Spouse Transit Specialist (if applicable) PRESENTATION Oxygen Room Air Telemetry [...] help from Spouse Level of Mobility Mobility [place] History of Falls ADL Performance ADL Performance: [...] Mobility Bed Mobility Exam: Rolling/Turning Level of [place]: Maximum assist (25% patient effort) Physical/Nonphysical Assist: Verbal Cues, Moderate cues Assistive Device: Bed rails, Other (SAND SCREENER) Bed Mobility Exam: Scooting/Bridging Level of [place]: Maximum assist (25% patient's effort) (up in bed; Lester forward at EOB) Physical/Nonphysical Assist: Verbal Cues, Moderate cues Assistive Device: Bed rails Bed Mobility Exam: Supine to Sit Level of [place]: Maximum assist (25% patient's effort) Physical/Nonphysical Assist: Verbal Cues, Moderate cues, Set-up required, Additional assist utilized for safety Assistive Device: Other (SAND SCREENER) Bed Mobility Exam: Sit to Supine Level of [place]: Maximum assist (25% patient's effort) Physical/Nonphysical Assist: [...] POC an d discharge recommendations. STANDARDIZED ASSESSMENTS [facility] 6-Click Daily Activities Help from Other: Don/Doff Regular Lower Body Clothings: A lot Help From Other: Bathing: A lot Help From Other: Toileting: A lot Help From Other: Don/Doff Upper Body Clothings: None Help From Other: Grooming: None Help From Other: Eating Meals: None [facility] 6 Click - Daily Activities Score: [...] him in the OR. Of note, Mr. Smlals is receiving enteral panel for recurrent UTI [...] Lunch: leftovers/baked oatmeal Dinner: take out/cooking - [employer], cracker barrel Snacks: peanut butter crackers, cheese [...] continue to assess need -Follow-up plan: home extension service supervisor - Anette Kendall -Tentative discharge recommendations: Insulin [...] team via secure chat orpage us at [phone] during 7a-7p, Thursday-Thursday. For after hours please [...] by mouth 3 times a day. HYDROcodone-acetaminophen ([place]) 10-325 MG tablet Take 1 tablet by [...] by mouth daily. Insulin Pen Needle (Pen Ludowici) 31G X 5 MM [facility] USE TO INJECT INSULIN 3 TIMES PER [...] 04/28/2025 6:09 AM EDTAssociated Order(s): Consult to [facility] Steve Images from the original note were not included. Consult to [facility] Rich Wilson Consult performed by: Sy De [...] times a day. 09/05/21 Provider, Historical HYDROcodone-acetaminophen ([place]) 10-325 MG tablet Take 1 tablet by mouth every 6 hours as needed. Provider, Historical insulin NPH-insulin regular (NovoLIN 70/30 FlexPen) (70-30) 100 UNIT/ML injection pen Inject 90 Units under the skin 3 times a day before meals. FURTHER REFILLS WILL BE PROVIDED UPON ATTENDANCE OF NEXT OFFICE VISIT 03/29/25 02/22/25 Divine Archer APRN Insulin Pen Needle (Pen Ludowici) 31G X 5 MM [facility] USE TO INJECT INSULIN 3 TIMES PER [...] Value Units Date/Time Blood Culture (Aerobic/Anaerobet Set) [[id number]] Collected: 04/27/252215 Order Status: Completed Specimen: Blood, Venous Updated: 04/28/25111 Culture Culture in lab Blood Culture (Aerobic/Anaerobet Set) [[id number]] Collected: 04/27/252215 Order Status: Completed Specimen: Blood, [...] Anxiety disorder, unspecified Anxiety Arthritis Atrial fibrillation ([facility]/HCC) CAP (community acquired pneumonia) 05/19/2024 Cellulitis [...] warmth, chills, vomiting. History provided by: Patient interpreter for the deaf used: No I agree with the above [...] ???kidney infection?? where [facility]. Patient denies any shortness of breath, fevers, [...] records from his previous hospital visit at [facility] which showed he was being treated for [...] Ordered Status Ordering Provider 04/28/25541 Consult to [facility] Once Specialty: Internal Medicine Provider: (Not [...] of Pseudomonas coverage. I spoke with the office clerk assistant to tryto get records from [facility] to see why he was being treated [...] Anxiety disorder, unspecified Anxiety Arthritis Atrial fibrillation ([facility]) CAP (community acquired pneumonia) 05/19/2024 Cellulitis [...] Care Team (Late st Contact Info) Description 06/12/2025 2:00 PM EST Office Visit [facility] [address] [facility] [address] [facility] [place] [address] Elaine Campbell PA [address] [facility] [address] [place] [address] 06/22/2025 1:40 PM EST Office Visit [facility] [address] [facility] 5th Floor [address] [place] [address] Mary Vicente MD [address] [facility] [address] [place] [phone] 06/23/2025 8:00 AM EST Office Visit [facility] [address] 5th Floor [address] [place] [id number] Sheila Marcano PA [address] [facility] [address] [place] [address] Scheduled Orders Name Type Priority [...] UNSOLICITED RESULTS Routine 05/17/2025 5:13 PM EST POCT GLUCOSE METER UNSOLICITED RESULTS Routine 05/17/2025 1:01 PM EST ECHO, ADULT TRANSTHORACIC COMPLETE W/ CONTRAST Routine 05/17/2025 9:51 AM EST POCT GLUCOSE METER UNSOLICITED RESULTS Routine 05/17/2025 8:52 AM EST POCT GLUCOSE METER UNSOLICITED RESULTS Routine 05/16/2025 9:28 PM EST POCT GLUCOSE METER UNSOLICITED RESULTS [...] UNSOLICITED RESULTS Routine 05/14/2025 8:30 AM EST POCT GLUCOSE METER UNSOLICITED RESULTS Routine 05/14/2025 4:49 AM EST CBC WITH AUTO DIFFERENTIAL Routine 05/14/2025 1:45 AM EDT PHOSPHORUS, PLASMA Routine 05/14/2025 1: 45 AM EDT MAGNESIUM, PLASMA Routine 05/14/2025 1:4 5 AM EDT BASIC METABOLIC PANEL, PLASMA Routine 05/14/2025 1:45 AM EDT POCT GLUCOSE METER UNSOLICITED RESULTS Routine 05/13/2025 7:59 PM EDT POCT GLUCOSE METER UNSOLICITED RESULTS [...] POCT glucose meter (05/18/2025 8:09 AM EST) [facility] POCT Glucose 124(H) 74 - 99 mg/dL 05/18/2025 8:11 AM EST [facility] Comment:Accuracy of [...] for testing. Comment 05/18/2025 8:11 AM EST [facility] Wing Commander ID Char Hinojosa 05/18/2025 8:11 AM EST [facility] Device ID [id number] 05/18/2025 8:11 AM EST [facility] Specimen Type POC Capillary 05/18/2025 8:11 AM EST [facility] Blood Capillary blood specimen / Unknown 05/18/2025 8:09 AM EST 05/18/2025 8:11 AM EST us Umar R Jay Jay DO LAB POINT OF CARE TE ST DOCKED DEVICE UNSOLICITED RESULTS Final Result [facility] [address] [place] [address] * (ABNORMAL) POCT glucose meter (05/17/2025 7:54 PM EST) [facility] POCT Glucose 216(H) 74 - 99 mg/dL [...] 05/17/2025 7:55 PM EST [facility] Wing Commander ID Ron Lal 7:55 PM EST [facility] Device ID [id number] 05/17/2025 7:55 PM EST [facility] Specimen Type POC Capillary 05/17/2025 7:55 PM EST [facility] Blood Capillary blood specimen / Unknown 05/17/2025 7:54 PM EST 05/17/2025 7:55 PM EST Umar R Jay Jay DO LAB POINT OF CARE TE ST DOCKED DEVICE UNSOLICITED RESULTS Final Result [facility] [address] [place] [address] * (ABNORMAL) POCT glucose meter (05/17/2025 5:13 PM EST) [facility] POCT Glucose 186(H) 74 - 99 mg/dL [...] for testing. Comment 05/17/2025 5:14 PM EST [facility] Wing Commander ID Char Hinojosa 05/17/2025 5:14 PM EST [facility] Device ID [id number] 05/17/2025 5:14 PM EST [facility] Specimen Type POC Capillary 05/17/2025 5:14 PM EST [facility] Blood Capillary blood specimen / Unknown 05/17/2025 5:13 PM EST 05/17/2025 5:14 PM EST [facility] LAB POINT OF CARE TE ST DOCKED DEVICE UNSOLICITED RESULTS Final Result Performing Organization Address City/[facility] Co de Phone Number [facility] [address] [place] [address] * (ABNORMAL) POCT glucose meter (05/17/2025 1:01 PM EST) Pathologist [facility] POCT Glucose 191(H) 74 - 99 mg/dL 05/31/2025 3:12 PM EST [facility] Comment:Accuracy of a glucos e result obtained from a capillary whole blood specimen relies upon adequate, non-compromised capillary blood flow. If the capillary glucose result is not consistent with the patient's clinical signs and symptoms, glucose testing should be repeated with either an arterial or venous sample on the glucometer or sent to the main labortory for testing. Comment 05/31/2025 3:12 PM EST [facility] Wing Commander ID Char Hinojosa 05/31/2025 3:12 PM EST [facility] Device ID [id number] 05/31/2025 3:12 PM EST [facility] Specimen Type POC Capillary 05/31/2025 3:12 PM EST [facility] Blood Capillary blood specimen / Unknown 05/17/2025 1:01 PM EST 05/31/2025 3:12 PM EST [facility] LAB POINT OF CARE TE ST DOCKED DEVICE UNSOLICITED RESULTS Final Result Performing Organization Address City/[facility]/ZIP Co de Phone Number [facility] [address] [place] [address] * ECHO, ADULT TRANSTHORACIC COMPLETE W/ CONTRAST (05/17/2025 9:51 AM EST) BSA 3.30 m2 [facility] Height 182.9 [facility] Weight 247.2 [facility] LVIDd 51 mm [facility] LVIDs 40 mm [facility] IVSd 12 mm [facility] LVPWd 12 mm [facility]SC[facility] LV MASS(C)D 241 g [facility]ANK [facility] ECHO LV MASS INDEX 73 g/m2 [...] cm/s HANK ISCV LA dimension 41 mm AHNK ISCV RV base 48 mm HANK ISCV [...] Ao Diam 37 mm [facility]ANK ISC[facility] PA NH(ACCEL) 24.6 mmHg HANK ISCV LV mean PG [...] is no recent study available for direct [id number] comparison. Left Ventricle The left ventricle is [...] is no recent study available for direct [id number] comparison. [facility] Rodrick Jay Jay CV ECHO PROCEDURES Final Result * (ABNORMAL) POCT glucose meter (05/17/2025 8:52 AM EST) POCT Glucose 225(H) 74 - 99 mg/dL 05/31/2025 3:12 PM EST [facility] Comment:Accuracy of a glucos e result obtained from a capillary whole blood specimen relies upon adequate, non-compromised capillary blood flow. If the capillary glucose result is not consistent with the patient's clinical signs and symptoms, glucose testing should be repeated with either an arterial or venous sample on the glucometer or sent to the main labortory for testing. Comment 05/31/2025 3:12 PM EST [facility] Wing Commander ID Char Hinojosa 05/31/2025 3:12 PM EST [facility] Device ID [id number] 05/31/2025 3:12 PM EST [facility] Specimen Type POC Capillary 05/31/2025 3:12 PM EST [facility] Blood Capillary blood specimen / Unknown 05/17/2025 8:52 AM EST 05/31/2025 3:12 PM EST [facility] DO LAB POINT OF CARE TE ST DOCKED DEVICE UNSOLICITED RESULTS Final Result Performing Organization Address City/[facility] Co de Phone Number [facility] [address] [place] [address] * (ABNORMAL) POCT glucose meter (05/16/2025 9:28 PM EST) POCT Glucose 199(H) 74 - 99 mg/dL 05/31/2025 3:12 PM EST [facility] Comment:Accuracy of a glucos e result obtained from a capillary whole blood specimen relies upon adequate, non-compromised capillary blood flow. If the capillary glucose result is not consistent with the patient's clinical signs and symptoms, glucose testing should be repeated with either an arterial or venous sample on the glucometer or sent to the main labortory for testing. Comment 05/31/2025 3:12 PM EST [facility] Wing Commander ID Jamal Soriano 3:12 PM EST [facility] Device ID [id number] 05/31/2025 3:12 PM EST [facility] Specimen Type POC Capillary 05/31/2025 3:12 PM EST [facility] Blood Capillary blood specimen / Unknown 05/16/2025 9:28 PM EST 05/31/2025 3:12 PM EST [facility] R Jay Jay LAB POINT OF CARE TE ST DOCKED DEVICE UNSOLICITED RESULTS Final Result Performing Organization Address City/[facility] Co de Phone Number [facility] [address] [place] [address] * (ABNORMAL) POCT glucose meter (05/16/2025 5:37 PM EST) POCT Glucose 283(H) 74 - 99 mg/dL 05/16/2025 5:39 PM EST [facility] Comment:Accuracy of [...] for testing. Comment 05/16/2025 5:39 PM EST [facility] Wing Commander ID Char Hinojosa 05/16/2025 5:39 PM EST [facility] Device ID [id number] 05/16/2025 5:39 PM EST [facility] Specimen Type POC Capillary 05/16/2025 5:39 PM EST [facility] Blood Capillary blood specimen / Unknown 05/16/2025 5:37 PM EST 05/16/2025 5:39 PM EST Umar R Jay Jay DO LAB POINT OF CARE TE ST DOCKED DEVICE UNSOLICITED RESULTS Final Result [facility] [address] [place] [address] * ECG Adult (05/16/2025 3:33 PM EST) EKG DIAGNOSIS CLASS Abnormal MUSE ECG Ventricular Rate 58 BPM MUSE ECG Atrial Rate 58 BPM MUSE ECG NH Interval 184 ms MUSE ECG QRSD Interval 158 ms MUSE ECG QT Interval 496 ms MUSE ECG QTC Interval 486 ms MUSE ECG P [place] 30 degrees MUSE ECG R [place] -35 degrees MUSE ECG T Wave [place] -5 degrees MUSE ECG Diagnosis Sinus bradycardia [...] 3:33 PM EST 05/18/2025 12:15 AM EST us Umar R Jay Jay DO ECG ORDERABLES Final Result [facility] ECG * (ABNORMAL) POCT glucose meter (05/16/2025 12:06 PM EST) POCT Glucose 161(H) 74 - 99 mg/dL 05/16/2025 12:07 PM EST [facility] Comment:Accuracy of [...] for testing. Comment 05/16/2025 12:07 PM EST [facility] Wing Commander ID Char Hinojosa 05/16/2025 12:07 PM EST [facility] Device ID [id number] 05/16/2025 12:07 PM EST [facility] Specimen Type POC Capillary 05/16/2025 12:07 PM EST [facility] Blood Capillary blood specimen / Unknown 05/16/2025 12:06 PM EST 05/16/2025 12:07 PM EST us Selin Lee MD LAB POINT OF CARE TE ST DOCKED DEVICE UNSOLICITED RESULTS Final Result Performing Organization Address City/[facility] de Phone Number [facility] [address] [place] [address] * (ABNORMAL) POCT glucose meter (05/16/2025 8:17 AM EST) [facility] POCT Glucose 168(H) 74 - 99 mg/dL 05/16/2025 8:21 AM EST [facility] Comment:Accuracy of [...] for testing. Comment 05/16/2025 8:21 AM EST [facility] Wing Commander ID Char Hinojosa 05/16/2025 8:21 AM EST [facility] Device ID [id number] 05/16/2025 8:21 AM EST [facility] Specimen Type POC Capillary 05/16/2025 8:21 AM EST [facility] Blood Capillary blood specimen / Unknown 05/16/2025 8:17 AM EST 05/16/2025 8:21 AM EST us Selin Lee MD LAB POINT OF CARE TE ST DOCKED DEVICE UNSOLICITED RESULTS Final Result [facility] [address] [place] [address] * (ABNORMAL) CBC and Differential (05/16/2025 4:08 AM EST) WBC Count 7.97 3.70 - 10.30 10*3/uL LAB HEMATOLOGY METHOD 05/16/2025 4:26 AM EST [facility] RBC Count 4.27(L) 4.60 - 6.10 10*6/uL LAB HEMATOLOGY METHOD 05/16/2025 4:26 AM EST [facility] HGB 9.5(L) 13.7 - 17.5 g/dL LAB HEMATOLOGY METHOD 05/16/2025 4:26 AM EST [facility] HCT 31.6(L) 40.0 - 51.0 % LAB HEMATOLOGY METHOD 05/16/2025 4:26 AM EST [facility] Platelet Count 264 155 - 369 10*3/uL LAB HEMATOLOGY METHOD 05/16/2025 4:26 AM EST [facility] MCV 74(L) 79 - 98 fL LAB HEMATOLOGY METHOD 05/16/2025 4:26 AM EST [facility] MCH 22.2(L) 26.0 - 32.0 pg LAB HEMATOLOGY METHOD 05/16/2025 4:26 AM EST [facility] MCHC 30.1(L) 30.7 - 35.5 g/dL LAB HEMATOLOGY METHOD 05/16/2025 4:26 AM EST [facility] RDW 17.9(H) 11.5 - 14.5 % LAB HEMATOLOGY METHOD 05/16/2025 4:26 AM EST [facility] MPV 9.2 8.8 - 12.5 fL LAB HEMATOLOGY METHOD 05/16/2025 4:26 AM [facility] nRBC 0.0 <=0.0 per 100 WBCs LAB HEMATOLOGY METHOD 05/16/2025 4:26 AM EST [facility] Differential Type Automated LAB HEMATOLOGY METHOD 05/16/2025 4:26 AM [facility] Neutrophils % 67 % LAB HEMATOLOGY METHOD 05/16/2025 4:26 AM EST [facility] Lymphocytes % 16 % LAB HEMATOLOGY METHOD 05/16/2025 4:26 AM EST [facility] Monocytes % 12 % LAB HEMATOLOGY METHOD 05/16/2025 4:26 AM EST [facility] Eosinophils % 3 % LAB HEMATOLOGY METHOD 05/16/2025 4:26 AM EST [facility] Basophils % 1 % LAB HEMATOLOGY METHOD 05/16/2025 4:26 AM EST [facility] Immature Granulocytes % 1 % LAB HEMATOLOGY METHOD 05/16/2025 4:26 AM EST [facility] Neutrophils Absolute 5.39 1.60 - 6.10 10*3/uL LAB HEMATOLOGY METHOD 05/16/2025 4:26 AM EST [facility] Lymphocytes Absolute 1.30 1.20 - 3.90 10*3/uL LAB HEMATOLOGY METHOD 05/16/2025 4:26 AM EST [facility] Monocytes Absolute 0.93(H) 0.30 - 0.90 10*3/uL LAB HEMATOLOGY METHOD 05/16/2025 4:26 AM EST [facility] Eosinophils Absolute 0.26 0.00 - 0.50 10*3/uL LAB HEMATOLOGY METHOD 05/16/2025 4:26 AM EST [facility] Basophils Absolute 0.05 0.00 - 0.10 10*3/uL LAB HEMATOLOGY METHOD 05/16/2025 4:26 AM EST [facility] Immature Granulocytes Absolute 0.04 0.00 - 0.06 10*3/uL LAB HEMATOLOGY METHOD 05/16/2025 4:26 AM EST [facility] Blood Venous blood specimen / Unknown Venipuncture / Unknown 05/16/2025 4:08 AM EST 05/16/2025 4:17 AM EST Narrative [facility] - 05/16/2025 4:26 AM EST Therapeutic decision making should be based on absolute values, rather than percentages. us Selin Lee MD LAB BLOOD ORDERABLES Final Re sult [facility] [address] [place] [address] * (ABNORMAL) Magnesium, Plasma (05/16/2025 4:08 AM EST) Magnesium, Plasma 1.8(L) 1.9 - 2.4 mg/dL 05/16/2025 4:48 AM EST [facility] Blood Venous blood specimen / Unknown Venipuncture / Unknown 05/16/2025 4:08 AM EST 05/16/2025 4:16 AM EST us Selin Lee MD LAB BLOOD ORDERABLES Final Re sult [facility] [address] [place] [address] * (ABNORMAL) Basic Metabolic Panel, Plasma (05/16/2025 4:08 AM EST) Glucose, Plasma 168(H) 74 - 99 mg/dL 05/16/2025 4:48 AM EST [facility] BUN, Plasma 19 7 - 21 mg/dL 05/16/2025 4:48 AM EST [facility] Creatinine, Plasma 0.86 0.70 - 1.20 mg/dL 05/16/2025 4:48 AM EST [facility] BUN/Creatinine Ratio 22 05/16/2025 4:48 AM EST [facility] Sodium, Plasma 131(L) 136 - 145 mmol/L 05/16/2025 4:48 AM EST [facility] Potassium, Plasma 3.6 3.6 - 4.9 mmol/L 05/16/2025 4:48 AM EST [facility] Chloride, Plasma 88(L) 97 - 107 mmol/L 05/16/2025 4:48 AM EST [facility] CO2, Plasma 34(H) 22 - 29 mmol/L 05/16/2025 4:48 AM EST [facility] Anion Gap 9 6 - 16 mmol/L 05/16/2025 4:48 AM EST [facility] Total Calcium, Plasma 9.3 8.9 - 10.2 mg/dL 05/16/2025 4:48 AM EST [facility] eGFRcr 107.5 mL/min/1.7 3m*2 05/16/2025 4:48 AM EST [facility] Comment:Reported eGFRcr in m L/min/1.73m2 is based the CKD-EPI 2020 equation that does not use a race coefficient. Blood Venous blood specimen / Unknown Venipuncture / Unknown 05/16/2025 4:08 AM EST 05/16/2025 4:16 AM EST us Selin Lee MD LAB BLOOD ORDERABLES Final Re sult Performing Organization Address City/[facility] Co de Phone Number [facility] [address] [place] [address] * Phosphorus, Plasma (05/16/2025 4:08 AM EST) Pathologist [facility] Phosphorus, Plasma 3.7 2.5 - 4.5 mg/dL 05/16/2025 4:48 AM EST [facility] Blood Venous blood specimen / Unknown Venipuncture / Unknown 05/16/2025 4:08 AM EST 05/16/2025 4:16 AM EST us Selin Lee MD LAB BLOOD ORDERABLES Final Re sult Performing Organization Address [facility] de Phone Number [facility] [address] [place] [address] * (ABNORMAL) POCT glucose meter (05/15/2025 8:00 PM EST) [facility] POCT Glucose 190(H) 74 - 99 mg/dL 05/15/2025 8:02 PM EST [facility] Comment:Accuracy of [...] 05/15/2025 8:02 PM EST [facility] Wing Commander ID ShannanTimo salcedo 8:02 PM EST [facility] Device ID [id number] 05/15/2025 8:02 PM EST [facility] Specimen Type POC Capillary 05/15/2025 8:02 PM EST [facility] Blood Capillary blood specimen / Unknown 05/15/2025 8:00 PM EST 05/15/2025 8:02 PM EST us Selin Lee MD LAB POINT OF CARE TE ST DOCKED DEVICE UNSOLICITED RESULTS Final Result Performing Organization Address City/[facility] Co de Phone Number [facility] [address] [place] [address] * (ABNORMAL) POCT glucose meter (05/15/2025 4:52 PM EST) POCT Glucose 270(H) 74 - 99 mg/dL 05/15/2025 4:53 PM EST [facility] Comment:Accuracy of a [...] for testing. Comment 05/15/2025 4:53 PM EST [facility] Wing Commander ID Char Hinojosa 05/15/2025 4:53 PM EST [facility] Device ID [id number] 05/15/2025 4:53 PM EST [facility] Specimen Type POC Capillary 05/15/2025 4:53 PM EST [facility] Blood Capillary blood specimen / Unknown 05/15/2025 4:52 PM EST 05/15/2025 4:53 PM EST us Selin Lee MD LAB POINT OF CARE TE ST DOCKED DEVICE UNSOLICITED RESULTS Final Result Performing Organization Address City/[facility] Co de Phone Number [facility] [address] [place] [address] * (ABNORMAL) POCT glucose meter (05/15/2025 12:46 PM EST) POCT Glucose 233(H) 74 - 99 mg/dL [...] 05/15/2025 12:48 PM EST [facility] Wing Commander ID Santy Garcia 05/15/2025 12:48 PM EST [facility] Device ID [id number] 05/15/2025 12:48 PM EST [facility] Specimen Type POC Capillary 05/15/2025 12:48 PM EST [facility] Blood Capillary blood specimen / Unknown 05/15/2025 12:46 PM EST 05/15/2025 12:48 PM EST us Selin Lee MD LAB POINT OF CARE TE ST DOCKED DEVICE UNSOLICITED RESULTS Final Result Performing Organization Address City/[facility]/ZIP Co de Phone Number [facility] [address] [place] [address] * (ABNORMAL) POCT glucose meter (05/15/2025 11:31 AM EST) Pathologist [facility] POCT Glucose 235(H) 74 - 99 mg/dL 05/15/2025 11:33 AM EST [facility] Comment:Accuracy of a [...] Comment 05/15/2025 11:33 AM EST [facility] Wing Commander ID Char Hinojosa 05/15/2025 11:33 AM EST [facility] Device ID [id number] 05/15/2025 11:33 AM EST [facility] Specimen Type POC Capillary 05/15/2025 11:33 AM EST [facility] Blood Capillary blood specimen / Unknown 05/15/2025 11:31 AM EST 05/15/2025 11:33 AM EST us Selin Lee MD LAB POINT OF CARE TE ST DOCKED DEVICE UNSOLICITED RESULTS Final Result Performing Organization Address City/[facility]/ZIP Co de Phone Number [facility] [address] [place] [address] * (ABNORMAL) POCT glucose meter (05/15/2025 8:12 AM EST) Pathologist [facility] POCT Glucose 175(H) 74 - 99 mg/dL 05/15/2025 8:14 AM EST [facility] Comment:Accuracy of a [...] Comment 05/15/2025 8:14 AM EST [facility] Wing Commander ID Char Hinojosa 05/15/2025 8:14 AM EST [facility] Device ID [id number] 05/15/2025 8:14 AM EST [facility] Specimen Type POC Capillary 05/15/2025 8:14 AM EST [facility] Blood Capillary blood specimen / Unknown 05/15/2025 8:12 AM EST 05/15/2025 8:14 AM EST Selin Lee MD LAB POINT OF CARE TE ST DOCKED DEVICE UNSOLICITED RESULTS Final Result [facility] [address] [place] [address] * (ABNORMAL) CBC and Differential (05/15/2025 2:24 AM EST) [facility] WBC Count 8.81 3.70 - 10.30 10*3/uL LAB HEMATOLOGY METHOD 05/15/2025 2:41 AM EST [facility] RBC Count 4.49(L) 4.60 - 6.10 10*6/uL LAB HEMATOLOGY METHOD 05/15/2025 2:41 AM EST [facility] HGB 9.9(L) 13.7 - 17.5 g/dL LAB HEMATOLOGY METHOD 05/15/2025 2:41 AM EST [facility] HCT 33.3(L) 40.0 - 51.0 % LAB HEMATOLOGY METHOD 05/15/2025 2:41 AM EST [facility] Platelet Count 286 155 - 369 10*3/uL LAB HEMATOLOGY METHOD 05/15/2025 2:41 AM EST [facility] MCV 74(L) 79 - 98 fL LAB HEMATOLOGY METHOD 05/15/2025 2:41 AM [facility] MCH 22.0(L) 26.0 - 32.0 pg LAB HEMATOLOGY METHOD 05/15/2025 2:41 AM [facility] MCHC 29.7(L) 30.7 - 35.5 g/dL LAB HEMATOLOGY METHOD 05/15/2025 2:41 AM [facility] RDW 17.8(H) 11.5 - 14.5 % LAB HEMATOLOGY METHOD 05/15/2025 2:41 AM [facility] MPV 9.4 8.8 - 12.5 fL LAB HEMATOLOGY METHOD 05/15/2025 2:41 AM [facility] nRBC 0.0 <=0.0 per 100 WBCs LAB HEMATOLOGY METHOD 05/15/2025 2:41 AM [facility] Differential Type Automated LAB HEMATOLOGY METHOD 05/15/2025 2:41 AM [facility] Neutrophils % 71 % LAB HEMATOLOGY METHOD 05/15/2025 2:41 AM [facility] Lymphocytes % 14 % LAB HEMATOLOGY METHOD 05/15/2025 2:41 AM [facility] Monocytes % 11 % LAB HEMATOLOGY METHOD 05/15/2025 2:41 AM [facility] Eosinophils % 3 % LAB HEMATOLOGY METHOD 05/15/2025 2:41 AM [facility] Basophils % 1 % LAB HEMATOLOGY METHOD 05/15/2025 2:41 AM [facility] Immature Granulocytes % 0 % LAB HEMATOLOGY METHOD 05/15/2025 2:41 AM [facility] Neutrophils Absolute 6.25(H) 1.60 - 6.10 10*3/uL LAB HEMATOLOGY METHOD 05/15/2025 2:41 AM [facility] Lymphocytes Absolute 1.27 1.20 - 3.90 10*3/uL LAB HEMATOLOGY METHOD 05/15/2025 2:41 AM [facility] Monocytes Absolute 0.95(H) 0.30 - 0.90 10*3/uL LAB HEMATOLOGY METHOD 05/15/2025 2:41 AM [facility] Eosinophils Absolute 0.27 0.00 - 0.50 10*3/uL LAB HEMATOLOGY METHOD 05/15/2025 2:41 AM [facility] Basophils Absolute 0.04 0.00 - 0.10 10*3/uL LAB HEMATOLOGY METHOD 05/15/2025 2:41 AM EST [facility] Immature Granulocytes Absolute 0.03 0.00 - 0.06 10*3/uL LAB HEMATOLOGY METHOD 05/15/2025 2:41 AM EST [facility] Blood Venous blood specimen / Unknown Venipuncture / Unknown 05/15/2025 2:24 AM EST 05/15/2025 2:33 AM EST Narrative [facility] - 05/15/2025 2:41 AM EST Therapeutic decision making should be based on absolute values, rather than percentages. us Selin Lee MD LAB BLOOD ORDERABLES Final Re sult Performing Organization Address [facility]/ZIP Co de Phone Number [facility] [address] [place] [address] * (ABNORMAL) Magnesium, Plasma (05/15/2025 2:24 AM EST) Magnesium, Plasma 1.8(L) 1.9 - 2.4 mg/dL 05/15/2025 3:03 AM EST [facility] Blood Venous blood specimen / Unknown Venipuncture / Unknown 05/15/2025 2:24 AM EST 05/15/2025 2:32 AM EST us Selin Lee MD LAB BLOOD ORDERABLES Final Re sult Performing Organization Address [facility]/ZIP Co de Phone Number [facility] [address] [place] [address] * (ABNORMAL) Basic Metabolic Panel, Plasma (05/15/2025 2:24 AM EST) Glucose, Plasma 162(H) 74 - 99 mg/dL 05/15/2025 3:03 AM EST [facility] BUN, Plasma 15 7 - 21 mg/dL 05/15/2025 3:03 AM EST [facility] Creatinine, Plasma 0.91 0.70 - 1.20 mg/dL 05/15/2025 3:03 AM EST [facility] BUN/Creatinine Ratio 16 05/15/2025 3:03 AM EST [facility] Sodium, Plasma 133(L) 136 - 145 mmol/L 05/15/2025 3:03 AM EST [facility] Potassium, Plasma 3.3(L) 3.6 - 4.9 mmol/L 05/15/2025 3:03 AM EST [facility] Chloride, Plasma 87(L) 97 - 107 mmol/L 05/15/2025 3:03 AM EST [facility] CO2, Plasma 37(H) 22 - 29 mmol/L 05/15/2025 3:03 AM EST [facility] Anion Gap 9 6 - 16 mmol/L 05/15/2025 3:03 AM EST [facility] Total Calcium, Plasma 9.2 8.9 - 10.2 mg/dL 05/15/2025 3:03 AM EST [facility] eGFRcr 104.6 mL/min/1.7 3m*2 05/15/2025 3:03 AM EST [facility] Comment:Reported eGFRcr in m L/min/1.73m2 is based the CKD-EPI 2020 equation that does not use a race coefficient. Blood Venous blood specimen / Unknown Venipuncture / Unknown 05/15/2025 2:24 AM EST 05/15/2025 2:32 AM EST us Selin Lee MD LAB BLOOD ORDERABLES Final Re sult Performing Organization Address [facility] Co de Phone Number [facility] [address] [place] [address] * Phosphorus, Plasma (05/15/2025 2:24 AM EST) Phosphorus, Plasma 3.7 2.5 - 4.5 mg/dL 05/15/2025 3:03 AM EST [facility] Blood Venous blood specimen / Unknown Venipuncture / Unknown 05/15/2025 2:24 AM EST 05/15/2025 2:32 AM EST us Selin Lee MD LAB BLOOD ORDERABLES Final Re sult Performing Organization Address City/[facility]/ZIP Co de Phone Number [facility] [address] [place] [address] * (ABNORMAL) POCT glucose meter (05/14/2025 8:09 PM EST) [facility] POCT Glucose 194(H) 74 - 99 mg/dL 05/14/2025 8:11 PM EST [facility] Comment:Accuracy of a [...] for testing. Comment 05/14/2025 8:11 PM EST [facility] Wing Commander ID ColemanStella austin 05/14/20 8:11 PM EST [facility] Device ID [id number] 05/14/2025 8:11 PM EST [facility] Specimen Type POC Capillary 05/14/2025 8:11 PM EST [facility] Blood Capillary blood specimen / Unknown 05/14/2025 8:09 PM EST 05/14/2025 8:11 PM EST Selin Lee MD LAB POINT OF CARE [facility] DOCKED DEVICE UNSOLICITED RESULTS Final Result [facility] [address] [place] [address] * (ABNORMAL) POCT glucose meter (05/14/2025 5:10 PM EST) [facility] POCT Glucose 320(H) 74 - 99 mg/dL 05/14/2025 5:13 PM EST [facility] Comment:Accuracy of a [...] for testing. Comment 05/14/2025 5:13 PM EST [facility] Wing Commander ID En [place] 05/14/2025 5:13 PM EST [facility] Device ID [id number] 05/14/2025 5:13 PM EST [facility] Specimen Type POC Capillary 05/14/2025 5:13 PM EST [facility] Blood Capillary blood specimen / Unknown 05/14/2025 5:10 PM EST 05/14/2025 5:13 PM EST us Selin Lee MD LAB POINT OF CARE TE ST DOCKED DEVICE UNSOLICITED RESULTS Final Result Performing Organization Address City/[facility] Co de Phone Number [facility] [address] [place] [address] * (ABNORMAL) POCT glucose meter (05/14/2025 12:15 [...] Comment 05/14/2025 4:51 PM EST [facility] Wing Commander ID Dunia Montgomery 05/14/2025 4:51 PM EST [facility] Device ID [id number] 05/14/2025 4:51 PM EST [facility] Specimen Type POC Capillary 05/14/2025 4:51 PM EST [facility] Blood Capillary blood specimen / Unknown 05/14/2025 12:15 PM EST 05/14/2025 4:51 PM EST us Selin Lee MD LAB POINT OF CARE TE ST DOCKED DEVICE UNSOLICITED RESULTS Final Result Performing Organization Address City/[facility]/ZIP Co de Phone Number [facility] [address] [place] [address] * (ABNORMAL) POCT glucose meter (05/14/2025 8:30 [...] for testing. Comment 05/14/2025 8:33 AM EST [facility] Wing Commander ID Dunia Montgomery 05/14/2025 8:33 AM EST [facility] Device ID [id number] 05/14/2025 8:33 AM EST [facility] Specimen Type POC Capillary 05/14/2025 8:33 AM EST [facility] Blood Capillary blood specimen / Unknown 05/14/2025 8:30 AM EST 05/14/2025 8:33 AM EST us Selin Lee MD LAB POINT OF CARE TE ST DOCKED DEVICE UNSOLICITED RESULTS Final Result Performing Organization Address City/State/[facility] de Phone Number [facility] [address] [place] [address] * (ABNORMAL) POCT glucose meter (05/14/2025 4:49 AM EST) POCT Glucose 306(H) 74 - 99 mg/dL 05/31/2025 3:12 PM EST [facility] Comment:Accuracy of a glucos e result obtained from a capillary whole blood specimen relies upon adequate, non-compromised capillary blood flow. If the capillary glucose result is not consistent with the patient's clinical signs and symptoms, glucose testing should be repeated with either an arterial or venous sample on the glucometer or sent to the main labortory for testing. Comment 05/31/2025 3:12 PM EST [facility] Wing Commander ID Asiya Nix 025 3:12 PM EST [facility] Device ID [id number] 05/31/2025 3:12 PM EST [facility] Specimen Type POC Capillary 05/31/2025 3:12 PM EST [facility] Blood Capillary blood specimen / Unknown 05/14/2025 4:49 AM EST 05/31/2025 3:12 PM EST us Umar R Jay Jay DO LAB POINT OF CARE TE ST DOCKED DEVICE UNSOLICITED RESULTS Final Result [facility] [address] [place] [address] * (ABNORMAL) CBC and Differential (05/14/2025 1:45 AM EDT) WBC Count 7.88 3.70 - 10.30 10*3/uL LAB HEMATOLOGY METHOD 05/14/2025 2:47 AM EST [facility] RBC Count 4.25(L) 4.60 - 6.10 10*6/uL LAB HEMATOLOGY METHOD 05/14/2025 2:47 AM EST [facility] HGB 9.7(L) 13.7 - 17.5 g/dL LAB HEMATOLOGY METHOD 05/14/2025 2:47 AM [facility] HCT 31.7(L) 40.0 - 51.0 % LAB HEMATOLOGY METHOD 05/14/2025 2:47 AM EST [facility] Platelet Count 273 155 - 369 10*3/uL LAB HEMATOLOGY METHOD 05/14/2025 2:47 AM EST [facility] MCV 75(L) 79 - 98 fL LAB HEMATOLOGY METHOD 05/14/2025 2:47 AM [facility] MCH 22.8(L) 26.0 - 32.0 pg LAB HEMATOLOGY METHOD 05/14/2025 2:47 AM [facility] MCHC 30.6(L) 30.7 - 35.5 g/dL LAB HEMATOLOGY METHOD 05/14/2025 2:47 AM [facility] RDW 17.9(H) 11.5 - 14.5 % LAB HEMATOLOGY METHOD 05/14/2025 2:47 AM [facility] MPV 9.6 8.8 - 12.5 fL LAB HEMATOLOGY METHOD 05/14/2025 2:47 AM [facility] nRBC 0.0 <=0.0 per 100 WBCs LAB HEMATOLOGY METHOD 05/14/2025 2:47 AM [facility] Differential Type Automated LAB HEMATOLOGY METHOD 05/14/2025 2:47 AM EST [facility] Neutrophils % 66 % LAB HEMATOLOGY METHOD 05/14/2025 2:47 AM EST [facility] Lymphocytes % 18 % LAB HEMATOLOGY METHOD 05/14/2025 2:47 AM EST [facility] Monocytes % 11 % LAB HEMATOLOGY METHOD 05/14/2025 2:47 AM EST [facility] Eosinophils % 4 % LAB HEMATOLOGY METHOD 05/14/2025 2:47 AM EST [facility] Basophils % 1 % LAB HEMATOLOGY METHOD 05/14/2025 2:47 AM EST [facility] Immature Granulocytes % 0 % LAB HEMATOLOGY METHOD 05/14/2025 2:47 AM EST [facility] Neutrophils Absolute 5.20 1.60 - 6.10 10*3/uL LAB HEMATOLOGY METHOD 05/14/2025 2:47 AM EST [facility] Lymphocytes Absolute 1.44 1.20 - 3.90 10*3/uL LAB HEMATOLOGY METHOD 05/14/2025 2:47 AM EST [facility] Monocytes Absolute 0.85 0.30 - 0.90 10*3/uL LAB HEMATOLOGY METHOD 05/14/2025 2:47 AM EST [facility] Eosinophils Absolute 0.30 0.00 - 0.50 10*3/uL LAB HEMATOLOGY METHOD 05/14/2025 2:47 AM EST [facility] Basophils Absolute 0.06 0.00 - 0.10 10*3/uL LAB HEMATOLOGY METHOD 05/14/2025 2:47 AM EST [facility] Immature Granulocytes Absolute 0.03 0.00 - 0.06 10*3/uL LAB HEMATOLOGY METHOD 05/14/2025 2:47 AM EST [facility] Blood Venous blood specimen / Unknown Venipuncture / Unknown 05/14/2025 1:45 AM EDT 05/14/2025 2:24 AM EST Narrative [facility] - 05/14/2025 2:47 AM EST Therapeutic decision making should be based on absolute values, rather than percentages. us Selin Lee MD LAB BLOOD ORDERABLES Final Re sult [facility] [address] [place] [address] * (ABNORMAL) Magnesium, Plasma (05/14/2025 1:45 AM EDT) Magnesium, Plasma 1.7(L) 1.9 - 2.4 mg/dL 05/14/2025 2:58 AM EST [facility] Blood Venous blood specimen / Unknown Venipuncture / Unknown 05/14/2025 1:45 AM EDT 05/14/2025 2:25 AM EST us Selin Lee MD LAB BLOOD ORDERABLES Final Re sult [facility] [address] [place] [address] * (ABNORMAL) Basic Metabolic Panel, Plasma (05/14/2025 1:45 AM EDT) Glucose, Plasma 282(H) 74 - 99 mg/dL 05/14/2025 2:58 AM EST [facility] BUN, Plasma 16 7 - 21 mg/dL 05/14/2025 2:58 AM EST [facility] Creatinine, Plasma 0.85 0.70 - 1.20 mg/dL 05/14/2025 2:58 AM EST [facility] BUN/Creatinine Ratio 19 05/14/2025 2:58 AM EST [facility] Sodium, Plasma 132(L) 136 - 145 mmol/L 05/14/2025 2:58 AM EST [facility] Potassium, Plasma 3.5(L) 3.6 - 4.9 mmol/L 05/14/2025 2:58 AM EST [facility] Chloride, Plasma 87(L) 97 - 107 mmol/L 05/14/2025 2:58 AM EST [facility] CO2, Plasma 34(H) 22 - 29 mmol/L 05/14/2025 2:58 AM EST [facility] Anion Gap 11 6 - 16 mmol/L 05/14/2025 2:58 AM EST [facility] Total Calcium, Plasma 9.2 8.9 - 10.2 mg/dL 05/14/2025 2:58 AM EST [facility] eGFRcr 107.9 mL/min/1.7 3m*2 05/14/2025 2:58 AM EST [facility] Comment:Reported eGFRcr in m L/min/1.73m2 is based the CKD-EPI 2020 equation that does not use a race coefficient. Blood Venous blood specimen / Unknown Venipuncture / Unknown 05/14/2025 1:45 AM EDT 05/14/2025 2:25 AM EST us Selin Lee MD LAB BLOOD ORDERABLES Final Re sult Performing Organization Address [facility]/ZIP Co de Phone Number [facility] [address] [place] [address] * Phosphorus, Plasma (05/14/2025 1:45 AM EDT) [facility] Phosphorus, Plasma 3.3 2.5 - 4.5 mg/dL 05/14/2025 2:58 AM EST [facility] Blood Venous blood specimen / Unknown Venipuncture / Unknown 05/14/2025 1:45 AM EDT 05/14/2025 2:25 AM EST us Selin Lee MD LAB BLOOD ORDERABLES Final Re sult Performing Organization Address [facility] [place] [address] * (ABNORMAL) POCT glucose meter (05/13/2025 7:59 PM EDT) [facility] POCT Glucose 257(H) 74 - 99 mg/dL 05/31/2025 3:12 PM EST [facility] Comment:Accuracy of a glucos e result obtained from a capillary whole blood specimen relies upon adequate, non-compromised capillary blood flow. If the capillary glucose result is not consistent with the patient's clinical signs and symptoms, glucose testing should be repeated with either an arterial or venous sample on the glucometer or sent to the main labortory for testing. Comment 05/31/2025 3:12 PM EST [facility] Wing Commander ID ColemanStella 05/31/20 3:12 PM EST [facility] Device ID [id number] 05/31/2025 3:12 PM EST [facility] Specimen Type POC Capillary 05/31/2025 3:12 PM EST [facility] Blood Capillary blood specimen / Unknown 05/13/2025 7:59 PM EDT 05/31/2025 3:12 PM EST Wily Goyal DO LAB POINT OF CARE TE ST DOCKED DEVICE UNSOLICITED RESULTS Final Result Performing Organization Address [facility] de Phone Number [facility] [address] [place] [address] * (ABNORMAL) POCT glucose meter (05/13/2025 4:58 PM EDT) [facility] POCT Glucose 217(H) 74 - 99 mg/dL 05/13/2025 5:00 PM EDT [facility] Comment:Accuracy of [...] for testing. Comment 05/13/2025 5:00 PM EDT [facility] Wing Commander ID Priyanka Negrete 05/13/20 5:00 PM EDT [facility] Device ID [id number] 05/13/2025 5:00 PM EDT [facility] Specimen Type POC Capillary 05/13/2025 5:00 PM EDT [facility] Blood Capillary blood specimen / Unknown 05/13/2025 4:58 PM EDT 05/13/2025 5:00 PM EDT Selin Lee MD LAB POINT OF CARE TE ST DOCKED DEVICE UNSOLICITED RESULTS Final Result Performing Organization Address City/[facility] Co de Phone Number [facility] [address] [place] [address] * (ABNORMAL) POCT glucose meter (05/13/2025 11:37 AM EDT) [facility] POCT Glucose 255(H) 74 - 99 mg/dL [...] Comment 05/13/2025 11:41 AM EDT [facility] Wing Commander ID Priyanka Negrtee 05/13/20 11:41 AM EDT [facility] Device ID [id number] 05/13/2025 11:41 AM EDT [facility] Specimen Type POC Capillary 05/13/2025 11:41 AM EDT [facility] Blood Capillary blood specimen / Unknown 05/13/2025 11:37 AM EDT 05/13/2025 11:41 AM EDT us Selin Lee MD LAB POINT OF CARE TE ST DOCKED DEVICE UNSOLICITED RESULTS Final Result Performing Organization Address City/[facility] Co ak Phone Number [facility] [address] [place] [address] * (ABNORMAL) POCT glucose meter (05/13/2025 7:42 AM EDT) [facility] POCT Glucose 233(H) 74 - 99 mg/dL [...] Comment 05/13/2025 7:45 AM EDT [facility] Wing Commander ID Priyanka Negrete 05/13/20 7:45 AM EDT [facility] Device ID [id number] 05/13/2025 7:45 AM EDT [facility] Specimen Type POC Capillary 05/13/2025 7:45 AM EDT [facility] Blood Capillary blood specimen / Unknown 05/13/2025 7:42 AM EDT 05/13/2025 7:45 AM EDT us Selin Lee MD LAB POINT OF CARE TE ST DOCKED DEVICE UNSOLICITED RESULTS Final Result [facility] [address] [place] [address] * (ABNORMAL) CBC and Differential (05/13/2025 3:54 AM EDT) WBC Count 7.92 3.70 - 10.30 10*3/uL LAB HEMATOLOGY METHOD 05/13/2025 4:11 AM EDT [facility] RBC Count 4.40(L) 4.60 - 6.10 10*6/uL LAB HEMATOLOGY METHOD 05/13/2025 4:11 AM EDT [facility] HGB 9.9(L) 13.7 - 17.5 g/dL LAB HEMATOLOGY METHOD 05/13/2025 4:11 AM EDT [facility] HCT 33.0(L) 40.0 - 51.0 % LAB HEMATOLOGY METHOD 05/13/2025 4:11 AM EDT [facility] Platelet Count 276 155 - 369 10*3/uL LAB HEMATOLOGY METHOD 05/13/2025 4:11 AM EDT [facility] MCV 75(L) 79 - 98 fL LAB HEMATOLOGY METHOD 05/13/2025 4:11 AM EDT [facility] MCH 22.5(L) 26.0 - 32.0 pg LAB HEMATOLOGY METHOD 05/13/2025 4:11 AM EDT [facility] MCHC 30.0(L) 30.7 - 35.5 g/dL LAB HEMATOLOGY METHOD 05/13/2025 4:11 AM EDT [facility] RDW 17.8(H) 11.5 - 14.5 % LAB HEMATOLOGY METHOD 05/13/2025 4:11 AM EDT [facility] MPV 9.3 8.8 - 12.5 fL LAB HEMATOLOGY METHOD 05/13/2025 4:11 AM EDT [facility] nRBC 0.0 <=0.0 per 100 WBCs LAB HEMATOLOGY METHOD 05/13/2025 4:11 AM EDT [facility] Differential Type Automated LAB HEMATOLOGY METHOD 05/13/2025 4:11 AM EDT [facility] Neutrophils % 69 % LAB HEMATOLOGY METHOD 05/13/2025 4:11 AM EDT [facility] Lymphocytes % 17 % LAB HEMATOLOGY METHOD 05/13/2025 4:11 AM EDT [facility] Monocytes % 10 % LAB HEMATOLOGY METHOD 05/13/2025 4:11 AM EDT [facility] Eosinophils % 3 % LAB HEMATOLOGY METHOD 05/13/2025 4:11 AM EDT [facility] Basophils % 1 % LAB HEMATOLOGY METHOD 05/13/2025 4:11 AM EDT [facility] Immature Granulocytes % 0 % LAB HEMATOLOGY METHOD 05/13/2025 4:11 AM EDT [facility] Neutrophils Absolute 5.47 1.60 - 6.10 10*3/uL LAB HEMATOLOGY METHOD 05/13/2025 4:11 AM EDT [facility] Lymphocytes Absolute 1.33 1.20 - 3.90 10*3/uL LAB HEMATOLOGY METHOD 05/13/2025 4:11 AM EDT [facility] Monocytes Absolute 0.78 0.30 - 0.90 10*3/uL LAB HEMATOLOGY METHOD 05/13/2025 4:11 AM EDT [facility] Eosinophils Absolute 0.27 0.00 - 0.50 10*3/uL LAB HEMATOLOGY METHOD 05/13/2025 4:11 AM EDT [facility] Basophils Absolute 0.04 0.00 - 0.10 10*3/uL LAB HEMATOLOGY METHOD 05/13/2025 4:11 AM EDT [facility] Immature Granulocytes Absolute 0.03 0.00 - 0.06 10*3/uL LAB HEMATOLOGY METHOD 05/13/2025 4:11 AM EDT [facility] Blood Venous blood specimen / Unknown Venipuncture / Unknown 05/13/2025 3:54 AM EDT 05/13/2025 4:01 AM EDT Narrative [facility] - 05/13/2025 4:11 AM EDT Therapeutic decision making should be based on absolute values, rather than percentages. us Selin Lee MD LAB BLOOD ORDERABLES Final Re sult [facility] [address] [place] [address] * Magnesium, Plasma (05/13/2025 3:54 AM EDT) Magnesium, Plasma 1.9 1.9 - 2.4 mg/dL 05/13/2025 4:28 AM EDT [facility] Blood Venous blood specimen / Unknown Venipuncture / Unknown 05/13/2025 3:54 AM EDT 05/13/2025 4:01 AM EDT us Selin Lee MD LAB BLOOD ORDERABLES Final Re sult [facility] [address] [place] [address] * (ABNORMAL) Basic Metabolic Panel, Plasma (05/13/2025 3:54 AM EDT) Glucose, Plasma 238(H) 74 - 99 mg/dL 05/13/2025 4:28 AM EDT [facility] BUN, Plasma 16 7 - 21 mg/dL 05/13/2025 4:28 AM EDT [facility] Creatinine, Plasma 0.96 0.70 - 1.20 mg/dL 05/13/2025 4:28 AM EDT [facility] BUN/Creatinine Ratio 17 05/13/2025 4:28 AM EDT [facility] Sodium, Plasma 131(L) 136 - 145 mmol/L 05/13/2025 4:28 AM EDT [facility] Potassium, Plasma 3.3(L) 3.6 - 4.9 mmol/L 05/13/2025 4:28 AM EDT [facility] Chloride, Plasma 87(L) 97 - 107 mmol/L 05/13/2025 4:28 AM EDT [facility] CO2, Plasma 37(H) 22 - 29 mmol/L 05/13/2025 4:28 AM EDT [facility] Anion Gap 7 6 - 16 mmol/L 05/13/2025 4:28 AM EDT [facility] Total Calcium, Plasma 9.1 8.9 - 10.2 mg/dL 05/13/2025 4:28 AM EDT [facility] eGFRcr 98.1 mL/min/1.7 3m*2 05/13/2025 4:28 AM EDT [facility] Comment:Reported eGFRcr in m L/min/1.73m2 is based the CKD-EPI 2020 equation that does not use a race coefficient. Blood Venous blood specimen / Unknown Venipuncture / Unknown 05/13/2025 3:54 AM EDT 05/13/2025 4:01 AM EDT us Selin Lee MD LAB BLOOD ORDERABLES Final Re sult Performing Organization Address [facility] [place] [address] * Phosphorus, Plasma (05/13/2025 3:54 AM EDT) Pathologist [facility] Phosphorus, Plasma 3.3 2.5 - 4.5 mg/dL 05/13/2025 4:28 AM EDT [facility] Blood Venous blood specimen / Unknown Venipuncture / Unknown 05/13/2025 3:54 AM EDT 05/13/2025 4:01 AM EDT us Selin Lee MD LAB BLOOD ORDERABLES Final Re sult Performing Organization Address [facility] [place] [address] * (ABNORMAL) POCT glucose meter (05/12/2025 7:40 PM EDT) [facility] POCT Glucose 248(H) 74 - 99 mg/dL [...] for testing. Comment 05/12/2025 7:42 PM EDT [facility] Wing Commander ID Stella Coleman 05/12/20 7:42 PM EDT [facility] Device ID [id number] 05/12/2025 7:42 PM EDT [facility] Specimen Type POC Capillary 05/12/2025 7:42 PM EDT [facility] Blood Capillary blood specimen / Unknown 05/12/2025 7:40 PM EDT 05/12/2025 7:42 PM EDT us Selin Lee MD LAB POINT OF CARE TE ST DOCKED DEVICE UNSOLICITED RESULTS Final Result [facility] [address] [place] [address] * (ABNORMAL) POCT glucose meter (05/12/2025 4:36 [...] Comment 05/12/2025 4:38 PM EDT [facility] Wing Commander ID Char Hinojosa 05/12/2025 4:38 PM EDT [facility] Device ID [id number] 05/12/2025 4:38 PM EDT [facility] Specimen Type POC Capillary 05/12/2025 4:38 PM EDT [facility] Blood Capillary blood specimen / Unknown 05/12/2025 4:36 PM EDT 05/12/2025 4:38 PM EDT us Selin Lee MD LAB POINT OF CARE TE ST DOCKED DEVICE UNSOLICITED RESULTS Final Result [facility] [address] [place] [address] * (ABNORMAL) POCT glucose meter (05/12/2025 11:30 AM EDT) POCT Glucose 315(H) 74 - 99 mg/dL 05/12/2025 11:32 AM EDT [facility] Comment:Accuracy [...] for testing. Comment 05/12/2025 11:32 AM EDT [facility] Wing Commander ID Char Hinojosa 05/12/2025 11:32 AM EDT [facility] Device ID [id number] 05/12/2025 11:32 AM EDT [facility] Specimen Type POC Capillary 05/12/2025 11:32 AM EDT [facility] Blood Capillary blood specimen / Unknown 05/12/2025 11:30 AM EDT 05/12/2025 11:32 AM EDT us Selin Lee MD LAB POINT OF CARE TE ST DOCKED DEVICE UNSOLICITED RESULTS Final Result Performing Organization Address City/State/[facility] Co de Phone Number [facility] [address] [place] [address] * (ABNORMAL) POCT glucose meter (05/12/2025 8:08 AM EDT) POCT Glucose 274(H) 74 - 99 mg/dL [...] for testing. Comment 05/12/2025 8:10 AM EDT [facility] Wing Commander ID Char Hinojosa 05/12/2025 8:10 AM EDT [facility] Device ID [id number] 05/12/2025 8:10 AM EDT [facility] Specimen Type POC Capillary 05/12/2025 8:10 AM EDT [facility] Blood Capillary blood specimen / Unknown 05/12/2025 8:08 AM EDT 05/12/2025 8:10 AM EDT us Selin Lee MD LAB POINT OF CARE TE ST DOCKED DEVICE UNSOLICITED RESULTS Final Result [facility] [address] [place] [id number] * (ABNORMAL) CBC and Differential (05/12/2025 3:56 AM EDT) WBC Count 7.24 3.70 - 10.30 10*3/uL LAB HEMATOLOGY METHOD 05/12/2025 4:15 AM EDT [facility] RBC Count 4.28(L) 4.60 - 6.10 10*6/uL LAB HEMATOLOGY METHOD 05/12/2025 4:15 AM EDT [facility] HGB 9.4(L) 13.7 - 17.5 g/dL LAB HEMATOLOGY METHOD 05/12/2025 4:15 AM EDT [facility] HCT 31.8(L) 40.0 - 51.0 % LAB HEMATOLOGY METHOD 05/12/2025 4:15 AM EDT [facility] Platelet Count 266 155 - 369 10*3/uL LAB HEMATOLOGY METHOD 05/12/2025 4:15 AM EDT [facility] MCV 74(L) 79 - 98 fL LAB HEMATOLOGY METHOD 05/12/2025 4:15 AM EDT [facility] MCH 22.0(L) 26.0 - 32.0 pg LAB HEMATOLOGY METHOD 05/12/2025 4:15 AM EDT [facility] MCHC 29.6(L) 30.7 - 35.5 g/dL LAB HEMATOLOGY METHOD 05/12/2025 4:15 AM EDT [facility] RDW 18.0(H) 11.5 - 14.5 % LAB HEMATOLOGY METHOD 05/12/2025 4:15 AM EDT [facility] MPV 9.6 8.8 - 12.5 fL LAB HEMATOLOGY METHOD 05/12/2025 4:15 AM EDT [facility] nRBC 0.0 <=0.0 per 100 WBCs LAB HEMATOLOGY METHOD 05/12/2025 4:15 AM EDT [facility] Differential Type Automated LAB HEMATOLOGY METHOD 05/12/2025 4:15 AM EDT [facility] Neutrophils % 71 % LAB HEMATOLOGY METHOD 05/12/2025 4:15 AM EDT [facility] Lymphocytes % 16 % LAB HEMATOLOGY METHOD 05/12/2025 4:15 AM EDT [facility] Monocytes % 9 % LAB HEMATOLOGY METHOD 05/12/2025 4:15 AM EDT [facility] Eosinophils % 3 % LAB HEMATOLOGY METHOD 05/12/2025 4:15 AM EDT [facility] Basophils % 1 % LAB HEMATOLOGY METHOD 05/12/2025 4:15 AM EDT [facility] Immature Granulocytes % 0 % LAB HEMATOLOGY METHOD 05/12/2025 4:15 AM EDT [facility] Neutrophils Absolute 5.14 1.60 - 6.10 10*3/uL LAB HEMATOLOGY METHOD 05/12/2025 4:15 AM EDT [facility] Lymphocytes Absolute 1.15(L) 1.20 - 3.90 10*3/uL LAB HEMATOLOGY METHOD 05/12/2025 4:15 AM EDT [facility] Monocytes Absolute 0.66 0.30 - 0.90 10*3/uL LAB HEMATOLOGY METHOD 05/12/2025 4:15 AM EDT [facility] Eosinophils Absolute 0.22 0.00 - 0.50 10*3/uL LAB HEMATOLOGY METHOD 05/12/2025 4:15 AM EDT [facility] Basophils Absolute 0.05 0.00 - 0.10 10*3/uL LAB HEMATOLOGY METHOD 05/12/2025 4:15 AM EDT [facility] Immature Granulocytes Absolute 0.02 0.00 - 0.06 10*3/uL LAB HEMATOLOGY METHOD 05/12/2025 4:15 AM EDT [facility] Blood Venous blood specimen / Unknown Venipuncture / Unknown 05/12/2025 3:56 AM EDT 05/12/2025 4:03 AM EDT Narrative [facility] - 05/12/2025 4:15 AM EDT Therapeutic decision making should be based on absolute values, rather than percentages. us Selin Lee MD LAB BLOOD ORDERABLES Final Re sult [facility] [address] [place] [address] * (ABNORMAL) Magnesium, Plasma (05/12/2025 3:56 AM EDT) Magnesium, Plasma 1.7(L) 1.9 - 2.4 mg/dL 05/12/2025 4:36 AM EDT [facility] Blood Venous blood specimen / Unknown Venipuncture / Unknown 05/12/2025 3:56 AM EDT 05/12/2025 4:03 AM EDT us Selin Lee MD LAB BLOOD ORDERABLES Final Re sult [facility] [address] [place] [address] * (ABNORMAL) Basic Metabolic Panel, Plasma (05/12/2025 3:56 AM EDT) Glucose, Plasma 383(H) 74 - 99 mg/dL 05/12/2025 4:36 AM EDT [facility] BUN, Plasma 18 7 - 21 mg/dL 05/12/2025 4:36 AM EDT [facility] Creatinine, Plasma 0.86 0.70 - 1.20 mg/dL 05/12/2025 4:36 AM EDT [facility] BUN/Creatinine Ratio 21 05/12/2025 4:36 AM EDT [facility] Sodium, Plasma 130(L) 136 - 145 mmol/L 05/12/2025 4:36 AM EDT [facility] Potassium, Plasma 3.2(L) 3.6 - 4.9 mmol/L 05/12/2025 4:36 AM EDT [facility] Chloride, Plasma 85(L) 97 - 107 mmol/L 05/12/2025 4:36 AM EDT [facility] CO2, Plasma 36(H) 22 - 29 mmol/L 05/12/2025 4:36 AM EDT [facility] Anion Gap 9 6 - 16 mmol/L 05/12/2025 4:36 AM EDT [facility] Total Calcium, Plasma 8.9 8.9 - 10.2 mg/dL 05/12/2025 4:36 AM EDT [facility] eGFRcr 107.5 mL/min/1.7 3m*2 05/12/2025 4:36 AM EDT [facility] Comment:Reported eGFRcr in m L/min/1.73m2 is based the CKD-EPI 2020 equation that does not use a race coefficient. Blood Venous blood specimen / Unknown Venipuncture / Unknown 05/12/2025 3:56 AM EDT 05/12/2025 4:03 AM EDT us Selin Lee MD LAB BLOOD ORDERABLES Final Re sult Performing Organization Address [facility] de Phone Number [facility] [address] [place] [address] * Phosphorus, Plasma (05/12/2025 3:56 AM EDT) [facility] Phosphorus, Plasma 2.8 2.5 - 4.5 mg/dL 05/12/2025 4:36 AM EDT [facility] Blood Venous blood specimen / Unknown Venipuncture / Unknown 05/12/2025 3:56 AM EDT 05/12/2025 4:03 AM EDT us Selin Lee MD LAB BLOOD ORDERABLES Final Re sult Performing Organization Address [facility] de Phone Number [facility] [address] [place] [address] * (ABNORMAL) POCT glucose meter (05/12/2025 3:11 AM EDT) [facility] POCT Glucose 348(H) 74 - 99 mg/dL [...] for testing. Comment 05/12/2025 3:13 AM EDT [facility] Wing Commander ID Joel Carmona 05/12/2025 3:13 AM EDT [facility] Device ID [id number] 05/12/2025 3:13 AM EDT [facility] Specimen Type POC Capillary 05/12/2025 3:13 AM EDT [facility] Blood Capillary blood specimen / Unknown 05/12/2025 3:11 AM EDT 05/12/2025 3:13 AM EDT us Selin Lee MD LAB POINT OF CARE TE ST DOCKED DEVICE UNSOLICITED RESULTS Final Result Performing Organization Address City/[facility] Co de Phone Number [facility] [address] [place] [address] * (ABNORMAL) POCT glucose meter (05/11/2025 7:57 PM EDT) POCT Glucose 272(H) 74 - 99 mg/dL 05/11/2025 8:02 PM EDT [facility] Comment:Accuracy of a [...] for testing. Comment 05/11/2025 8:02 PM EDT [facility] Wing Commander ID Joel Carmona 05/11/2025 8:02 PM EDT [facility] Device ID [id number] 05/11/2025 8:02 PM EDT [facility] Specimen Type POC Capillary 05/11/2025 8:02 PM EDT [facility] Blood Capillary blood specimen / Unknown 05/11/2025 7:57 PM EDT 05/11/2025 8:02 PM EDT us Selin Lee MD LAB POINT OF CARE TE ST DOCKED DEVICE UNSOLICITED RESULTS Final Result Performing Organization Address City/[facility] Co de Phone Number [facility] [address] [place] [address] * (ABNORMAL) POCT glucose meter (05/11/2025 5:05 PM EDT) POCT Glucose 258(H) 74 - 99 mg/dL [...] 05/11/2025 5:07 PM EDT [facility] Wing Commander ID Char Hinojosa 05/11/2025 5:07 PM EDT [facility] Device ID [id number] 05/11/2025 5:07 PM EDT [facility] Specimen Type POC Capillary 05/11/2025 5:07 PM EDT [facility] Blood Capillary blood specimen / Unknown 05/11/2025 5:05 PM EDT 05/11/2025 5:07 PM EDT Selin Lee MD LAB POINT OF CARE TE ST DOCKED DEVICE UNSOLICITED RESULTS Final Result Performing Organization Address City/State/[facility] Co de Phone Number [facility] [address] [place] [address] * (ABNORMAL) POCT glucose meter (05/11/2025 12:13 PM EDT) [facility] POCT Glucose 240(H) 74 - 99 mg/dL [...] for testing. Comment 05/11/2025 12:15 PM EDT [facility] Wing Commander ID Char Hinojosa 05/11/2025 12:15 PM EDT [facility] Device ID [id number] 05/11/2025 12:15 PM EDT [facility] Specimen Type POC Capillary 05/11/2025 12:15 PM EDT [facility] Blood Capillary blood specimen / Unknown 05/11/2025 12:13 PM EDT 05/11/2025 12:15 PM EDT Selin Lee MD LAB POINT OF CARE TE ST DOCKED DEVICE UNSOLICITED RESULTS Final Result Performing Organization Address [facility] de Phone Number [facility] [address] [place] [address] * (ABNORMAL) POCT glucose meter (05/11/2025 7:57 AM EDT) POCT Glucose 318(H) 74 - 99 mg/dL [...] for testing. Comment 05/11/2025 7:59 AM EDT [facility] Wing Commander ID Char Hinojosa 05/11/2025 7:59 AM EDT [facility] Device ID [id number] 05/11/2025 7:59 AM EDT [facility] Specimen Type POC Capillary 05/11/2025 7:59 AM EDT [facility] Blood Capillary blood specimen / Unknown 05/11/2025 7:57 AM EDT 05/11/2025 7:59 AM EDT us Selin Lee MD LAB POINT OF CARE TE ST DOCKED DEVICE UNSOLICITED RESULTS Final Result Performing Organization Address City/[facility] de Phone Number [facility] [address] [place] [address] * ECG Adult (05/11/2025 6:11 AM EDT) EKG DIAGNOSIS CLASS Abnormal MUSE ECG Ventricular Rate 59 BPM MUSE ECG Atrial Rate 59 BPM MUSE ECG NH Interval 176 ms MUSE ECG QRSD Interval 160 ms MUSE ECG QT Interval 520 ms MUSE ECG QTC Interval 514 ms MUSE ECG P [place] 21 degrees MUSE ECG R [place] -32 degrees MUSE ECG T Wave [place] -9 degrees MUSE ECG Diagnosis Sinus bradycardia [...] MUSE ECG Diagnosis Confirmed by Tone Lainez ([id number]) on 05/12/2025 11:35:23 AM MUSE ECG 05/11/2025 6:11 AM EDT 05/12/2025 11:35 AM EDT Selin Lee MD ECG ORDERABLES Final Result Performing Organization Address City/[facility]/ZIP Co de Phone Number MUSE ECG * (ABNORMAL) POCT glucose meter (05/11/2025 3:42 AM EDT) [facility] POCT Glucose 336(H) 74 - 99 mg/dL [...] Comment 05/11/2025 3:45 AM EDT [facility] Wing Commander ID Kaylin Barron 05/11/2025 3:45 AM EDT [facility] Device ID [id number] 05/11/2025 3:45 AM EDT [facility] Specimen Type POC Capillary 05/11/2025 3:45 AM EDT [facility] Blood Capillary blood specimen / Unknown 05/11/2025 3:42 AM EDT 05/11/2025 3:45 AM EDT us Selin Lee MD LAB POINT OF CARE TE ST DOCKED DEVICE UNSOLICITED RESULTS Final Result [facility] [address] [place] [address] * (ABNORMAL) CBC and Differential (05/11/2025 3:24 AM EDT) [facility] WBC Count 6.72 3.70 - 10.30 10*3/uL LAB HEMATOLOGY METHOD 05/11/2025 3:42 AM EDT [facility] RBC Count 4.13(L) 4.60 - 6.10 10*6/uL LAB HEMATOLOGY METHOD 05/11/2025 3:42 AM EDT [facility] HGB 9.5(L) 13.7 - 17.5 g/dL LAB HEMATOLOGY METHOD 05/11/2025 3:42 AM EDT [facility] HCT 31.1(L) 40.0 - 51.0 % LAB HEMATOLOGY METHOD 05/11/2025 3:42 AM EDT [facility] Platelet Count 253 155 - 369 10*3/uL LAB HEMATOLOGY METHOD 05/11/2025 3:42 AM EDT [facility] MCV 75(L) 79 - 98 fL LAB HEMATOLOGY METHOD 05/11/2025 3:42 AM EDT [facility] MCH 23.0(L) 26.0 - 32.0 pg LAB HEMATOLOGY METHOD 05/11/2025 3:42 AM EDT [facility] MCHC 30.5(L) 30.7 - 35.5 g/dL LAB HEMATOLOGY METHOD 05/11/2025 3:42 AM EDT [facility] RDW 17.8(H) 11.5 - 14.5 % LAB HEMATOLOGY METHOD 05/11/2025 3:42 AM EDT [facility] MPV 9.5 8.8 - 12.5 fL LAB HEMATOLOGY METHOD 05/11/2025 3:42 AM EDT [facility] nRBC 0.0 <=0.0 per 100 WBCs LAB HEMATOLOGY METHOD 05/11/2025 3:42 AM EDT [facility] Differential Type Automated LAB HEMATOLOGY METHOD 05/11/2025 3:42 AM EDT [facility] Neutrophils % 68 % LAB HEMATOLOGY METHOD 05/11/2025 3:42 AM EDT [facility] Lymphocytes % 17 % LAB HEMATOLOGY METHOD 05/11/2025 3:42 AM EDT [facility] Monocytes % 11 % LAB HEMATOLOGY METHOD 05/11/2025 3:42 AM EDT [facility] Eosinophils % 3 % LAB HEMATOLOGY METHOD 05/11/2025 3:42 AM EDT [facility] Basophils % 1 % LAB HEMATOLOGY METHOD 05/11/2025 3:42 AM EDT [facility] Immature Granulocytes % 0 % LAB HEMATOLOGY METHOD 05/11/2025 3:42 AM EDT [facility] Neutrophils Absolute 4.61 1.60 - 6.10 10*3/uL LAB HEMATOLOGY METHOD 05/11/2025 3:42 AM EDT [facility] Lymphocytes Absolute 1.11(L) 1.20 - 3.90 10*3/uL LAB HEMATOLOGY METHOD 05/11/2025 3:42 AM EDT [facility] Monocytes Absolute 0.72 0.30 - 0.90 10*3/uL LAB HEMATOLOGY METHOD 05/11/2025 3:42 AM EDT [facility] Eosinophils Absolute 0.21 0.00 - 0.50 10*3/uL LAB HEMATOLOGY METHOD 05/11/2025 3:42 AM EDT [facility] Basophils Absolute 0.05 0.00 - 0.10 10*3/uL LAB HEMATOLOGY METHOD 05/11/2025 3:42 AM EDT [facility] Immature Granulocytes Absolute 0.02 0.00 - 0.06 10*3/uL LAB HEMATOLOGY METHOD 05/11/2025 3:42 AM EDT [facility] Blood Venous blood specimen / Unknown Venipuncture / Unknown 05/11/2025 3:24 AM EDT 05/11/2025 3:30 AM EDT Narrative [facility] - 05/11/2025 3:42 AM EDT Therapeutic decision making should be based on absolute values, rather than percentages. us Selin Lee MD LAB BLOOD ORDERABLES Final Re sult [facility] [address] [place] [address] * (ABNORMAL) Magnesium, Plasma (05/11/2025 3:24 AM EDT) Magnesium, Plasma 1.8(L) 1.9 - 2.4 mg/dL 05/11/2025 3:58 AM EDT [facility] Blood Venous blood specimen / Unknown Venipuncture / Unknown 05/11/2025 3:24 AM EDT 05/11/2025 3:30 AM EDT us Selin Lee MD LAB BLOOD ORDERABLES Final Re sult [facility] [address] [place] [address] * (ABNORMAL) Basic Metabolic Panel, Plasma (05/11/2025 3:24 AM EDT) Glucose, Plasma 338(H) 74 - 99 mg/dL 05/11/2025 3:58 AM EDT [facility] BUN, Plasma 18 7 - 21 mg/dL 05/11/2025 3:58 AM EDT [facility] Creatinine, Plasma 0.86 0.70 - 1.20 mg/dL 05/11/2025 3:58 AM EDT [facility] BUN/Creatinine Ratio 21 05/11/2025 3:58 AM EDT [facility] Sodium, Plasma 131(L) 136 - 145 mmol/L 05/11/2025 3:58 AM EDT [facility] Potassium, Plasma 3.2(L) 3.6 - 4.9 mmol/L 05/11/2025 3:58 AM EDT [facility] Chloride, Plasma 85(L) 97 - 107 mmol/L 05/11/2025 3:58 AM EDT [facility] CO2, Plasma 39(H) 22 - 29 mmol/L 05/11/2025 3:58 AM EDT [facility] Anion Gap 7 6 - 16 mmol/L 05/11/2025 3:58 AM EDT [facility] Total Calcium, Plasma 9.1 8.9 - 10.2 mg/dL 05/11/2025 3:58 AM EDT [facility] eGFRcr 107.5 mL/min/1.7 3m*2 05/11/2025 3:58 AM EDT [facility] Comment:Reported eGFRcr in m L/min/1.73m2 is based the CKD-EPI 2020 equation that does not use a race coefficient. Blood Venous blood specimen / Unknown Venipuncture / Unknown 05/11/2025 3:24 AM EDT 05/11/2025 3:30 AM EDT us Selin Lee MD LAB BLOOD ORDERABLES Final Re sult Performing Organization Address [facility] Co de Phone Number [facility] [address] [place] [address] * Phosphorus, Plasma (05/11/2025 3:24 AM EDT) [facility] Phosphorus, Plasma 3.1 2.5 - 4.5 mg/dL 05/11/2025 3:58 AM EDT [facility] Blood Venous blood specimen / Unknown Venipuncture / Unknown 05/11/2025 3:24 AM EDT 05/11/2025 3:30 AM EDT us Selin Lee MD LAB BLOOD ORDERABLES Final Re sult Performing Organization Address [facility] Phone Number [facility] [address] [place] [address] * (ABNORMAL) POCT glucose meter (05/10/2025 7:07 PM EDT) [facility] POCT Glucose 398(H) 74 - 99 mg/dL [...] for testing. Comment 05/10/2025 7:10 PM EDT [facility] Wing Commander ID Char Hinojosa 05/10/2025 7:10 PM EDT [facility] Device ID [id number] 05/10/2025 7:10 PM EDT [facility] Specimen Type POC Capillary 05/10/2025 7:10 PM EDT [facility] Blood Capillary blood specimen / Unknown 05/10/2025 7:07 PM EDT 05/10/2025 7:10 PM EDT Selin Lee MD LAB POINT OF CARE TE ST DOCKED DEVICE UNSOLICITED RESULTS Final Result Performing Organization Address City/[facility] de Phone Number [facility] [address] [place] [address] * (ABNORMAL) POCT glucose meter (05/10/2025 4:55 PM EDT) POCT Glucose 418(H) 74 - 99 mg/dL [...] for testing. Comment 05/10/2025 4:57 PM EDT [facility] Wing Commander ID Char Hinojosa 05/10/2025 4:57 PM EDT [facility] Device ID [id number] 05/10/2025 4:57 PM EDT [facility] Specimen Type POC Capillary 05/10/2025 4:57 PM EDT [facility] Blood Capillary blood specimen / Unknown 05/10/2025 4:55 PM EDT 05/10/2025 4:57 PM EDT Selin Lee MD LAB POINT OF CARE TE ST DOCKED DEVICE UNSOLICITED RESULTS Final Result Performing Organization Address City/[facility] Co de Phone Number [facility] [address] [place] [address] * (ABNORMAL) POCT glucose meter (05/10/2025 11:41 AM EDT) Pathologist [facility] POCT Glucose 348(H) 74 - 99 mg/dL [...] Comment 05/10/2025 11:43 AM EDT [facility] Wing Commander ID Char Hinojosa 05/10/2025 11:43 AM EDT [facility] Device ID [id number] 05/10/2025 11:43 AM EDT [facility] Specimen Type POC Capillary 05/10/2025 11:43 AM EDT [facility] Blood Capillary blood specimen / Unknown 05/10/2025 11:41 AM EDT 05/10/2025 11:43 AM EDT Selin Lee MD LAB POINT OF CARE TE ST DOCKED DEVICE UNSOLICITED RESULTS Final Result Performing Organization Address City/[facility] Co de Phone Number [facility] [address] [place] [address] * ECG 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/2025 11:20 AM EDT) EKG DIAGNOSIS CLASS Abnormal MUSE ECG Ventricular Rate 65 BPM MUSE ECG Atrial Rate 65 BPM MUSE ECG NH Interval 198 ms MUSE ECG QRSD Interval 154 ms MUSE ECG QT Interval 508 ms MUSE ECG QTC Interval 528 ms MUSE ECG P [place] 66 degrees MUSE ECG R [place] -39 degrees MUSE ECG T Wave [place] -16 degrees MUSE ECG Diagnosis Normal sinus rhythm with sinus arrhythmia MUSE ECG Diagnosis Left axis deviation MUSE ECG Diagnosis Right bundle branch block MUSE ECG Diagnosis Minimal voltage criteria for LVH, may be normal variant ( R in aVL ) MUSE ECG Diagnosis Abnormal ECG MUSE ECG Diagnosis MUSE ECG Diagnosis Confirmed by Manas Mccauley ([id number]) on 05/10/2025 3:20:48 PM MUSE ECG 05/10/2025 11:2 0 AM EDT 05/10/2025 3:20 PM EDT Selin Lee MD ECG ORDERABLES Final Result Performing Organization Address City/[facility] Co de Phone Number MUSE ECG * (ABNORMAL) POCT glucose meter (05/10/2025 7:30 AM EDT) POCT Glucose 332(H) 74 - 99 mg/dL [...] for testing. Comment 05/10/2025 7:33 AM EDT [facility] Wing Commander ID Char Hinojosa 05/10/2025 7:33 AM EDT [facility] Device ID [id number] 05/10/2025 7:33 AM EDT [facility] Specimen Type POC Capillary 05/10/2025 7:33 AM EDT [facility] Blood Capillary blood specimen / Unknown 05/10/2025 7:30 AM EDT 05/10/2025 7:33 AM EDT Selin Lee MD LAB POINT OF CARE TE ST DOCKED DEVICE UNSOLICITED RESULTS Final Result Performing Organization Address City/[facility] Co de Phone Number [facility] [address] [place] [address] * ECG 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/2025 6:14 AM EDT) EKG DIAGNOSIS CLASS Abnormal MUSE ECG Ventricular Rate 56 BPM MUSE ECG Atrial Rate 56 BPM MUSE ECG NH Interval 196 ms MUSE ECG QRSD Interval 164 ms MUSE ECG QT Interval 508 ms MUSE ECG QTC Interval 490 ms MUSE ECG P [place] 74 degrees MUSE ECG R [place] -33 degrees MUSE ECG T Wave [place] -10 degrees MUSE ECG Diagnosis Sinus bradycardia with sinus arrhythmia MUSE ECG Diagnosis Left axis deviation MUSE ECG Diagnosis Right bundle branch block MUSE ECG Diagnosis T wave abnormality, consider lateral ischemia MUSE ECG Diagnosis Abnormal ECG MUSE ECG Diagnosis MUSE ECG Diagnosis Confirmed by Manas Mccauley ([id number]) on 05/10/2025 2:45:37 PM MUSE ECG 05/10/2025 6:14 AM EDT 05/10/2025 2:45 PM EDT Selin Lee MD ECG ORDERABLES Final Result Performing Organization Address City/[facility]/ZIP Co de Phone Number MUSE ECG * (ABNORMAL) POCT glucose meter (05/10/2025 4:00 AM EDT) [facility] POCT Glucose 377(H) 74 - 99 mg/dL 05/10/2025 4:02 AM EDT [facility] Comment:Accuracy of a [...] for testing. Comment 05/10/2025 4:02 AM EDT [facility] Wing Commander ID Maribell Saeed 4:02 AM EDT [facility] Device ID [id number] 05/10/2025 4:02 AM EDT [facility] Specimen Type POC Capillary 05/10/2025 4:02 AM EDT [facility] Blood Capillary blood specimen / Unknown 05/10/2025 4:00 AM EDT 05/10/2025 4:02 AM EDT Diane Guzman MD LAB POINT OF CARE T EST DOCKED DEVICE UNSOLICITED RESULTS Final Result [facility] [address] [place] [address] * (ABNORMAL) POCT glucose meter (05/09/2025 8:37 PM EDT) [facility] POCT Glucose 296(H) 74 - 99 mg/dL 05/09/2025 8:39 PM EDT [facility] Comment:Accuracy of [...] Comment 05/09/2025 8:39 PM EDT [facility] Wing Commander ID Maribell Saeed 8:39 PM EDT [facility] Device ID [id number] 05/09/2025 8:39 PM EDT [facility] Specimen Type POC Capillary 05/09/2025 8:39 PM EDT [facility] Blood Capillary blood specimen / Unknown 05/09/2025 8:37 PM EDT 05/09/2025 8:39 PM EDT us Diane Guzman MD LAB POINT OF CARE T EST DOCKED DEVICE UNSOLICITED RESULTS Final Result Performing Organization Address City/[facility]/ZIP Co de Phone Number [facility] [address] [place] [address] * Magnesium (05/09/2025 5:54 PM EDT) Magnesium, Plasma 1.9 1.9 - 2.4 mg/dL 05/09/2025 6:56 PM EDT [facility] Blood Venous blood specimen / Unknown Venipuncture / Unknown 05/09/2025 5:54 PM EDT 05/09/2025 6:25 PM EDT us Selin Lee MD LAB BLOOD ORDERABLES Final Re sult [facility] [address] [place] [address] * (ABNORMAL) Basic metabolic panel (05/09/2025 5:54 PM EDT) Glucose, Plasma 416(H) 74 - 99 mg/dL 05/09/2025 6:56 PM EDT [facility] BUN, Plasma 17 7 - 21 mg/dL 05/09/2025 6:56 PM EDT [facility] Creatinine, Plasma 0.81 0.70 - 1.20 mg/dL 05/09/2025 6:56 PM EDT [facility] BUN/Creatinine Ratio 21 05/09/2025 6:56 PM EDT [facility] Sodium, Plasma 130(L) 136 - 145 mmol/L 05/09/2025 6:56 PM EDT [facility] Potassium, Plasma 3.1(L) 3.6 - 4.9 mmol/L 05/09/2025 6:56 PM EDT [facility] Chloride, Plasma 84(L) 97 - 107 mmol/L 05/09/2025 6:56 PM EDT [facility] CO2, Plasma 35(H) 22 - 29 mmol/L 05/09/2025 6:56 PM EDT [facility] Anion Gap 11 6 - 16 mmol/L 05/09/2025 6:56 PM EDT [facility] Total Calcium, Plasma 9.1 8.9 - 10.2 mg/dL 05/09/2025 6:56 PM EDT [facility] eGFRcr 109.4 mL/min/1.7 3m*2 05/09/2025 6:56 PM EDT [facility] Comment:Reported eGFRcr in m L/min/1.73m2 is based the CKD-EPI 2020 equation that does not use a race coefficient. Blood Venous blood specimen / Unknown Venipuncture / Unknown 05/09/2025 5:54 PM EDT 05/09/2025 6:25 PM EDT us Selin Lee MD LAB BLOOD ORDERABLES Final Re sult [facility] [address] [place] [address] * (ABNORMAL) POCT glucose meter (05/09/2025 5:17 PM EDT) POCT Glucose 398(H) 74 - [...] for testing. Comment 05/09/2025 5:20 PM EDT [facility] Wing Commander ID Char Hinojosa 05/09/2025 5:20 PM EDT [facility] Device ID [id number] 05/09/2025 5:20 PM EDT [facility] Specimen Type POC Capillary 05/09/2025 5:20 PM EDT [facility] Blood Capillary blood specimen / Unknown 05/09/2025 5:17 PM EDT 05/09/2025 5:20 PM EDT Diane Guzman MD LAB POINT OF CARE T EST DOCKED DEVICE UNSOLICITED RESULTS Final Result Performing Organization Address City/[facility]/ZIP Co de Phone Number [facility] [address] [place] [address] * ECG Adult (05/09/2025 12:34 PM EDT) EKG DIAGNOSIS CLASS Abnormal MUSE ECG Ventricular Rate 75 BPM MUSE ECG Atrial Rate 75 BPM MUSE ECG NH Interval 176 ms MUSE ECG QRSD Interval 164 ms MUSE ECG QT Interval 454 ms MUSE ECG QTC Interval 506 ms MUSE ECG P [place] 70 degrees MUSE ECG R [place] -38 degrees MUSE ECG T Wave [place] 2 degrees MUSE ECG Diagnosis Normal sinus [...] 4 PM EDT 05/09/2025 2:20 PM EDT Selin Lee MD ECG ORDERABLES [...] for testing. Comment 05/09/2025 12:27 PM EDT [facility] Wing Commander ID Dunia Montgomery 05/09/2025 12:27 PM EDT [facility] Device ID [id number] 05/09/2025 12:27 PM EDT [facility] Specimen Type POC Capillary 05/09/2025 12:27 PM EDT [facility] Blood Capillary blood specimen / Unknown 05/09/2025 12:25 PM EDT 05/09/2025 12:27 PM EDT Diane Guzman MD LAB POINT OF CARE T EST DOCKED DEVICE UNSOLICITED RESULTS Final Result Performing Organization Address City/[facility]/ZIP Co de Phone Number [facility] [address] [place] [address] * (ABNORMAL) POCT glucose meter (05/09/2025 7:52 AM EDT) POCT Glucose 306(H) 74 - 99 mg/dL 05/09/2025 7:54 AM EDT [facility] Comment:Accuracy of [...] Comment 05/09/2025 7:54 AM EDT [facility] Wing Commander ID Char Hinojosa 05/09/2025 7:54 AM EDT [facility] Device ID [id number] 05/09/2025 7:54 AM EDT [facility] Specimen Type POC Capillary 05/09/2025 7:54 AM EDT [facility] Blood Capillary blood specimen / Unknown 05/09/2025 7:52 AM EDT 05/09/2025 7:54 AM EDT Diane Guzman MD LAB POINT OF CARE T EST DOCKED DEVICE UNSOLICITED RESULTS Final Result Performing Organization Address City/[facility]/ZIP Co de Phone Number [facility] [address] [place] [address] * (ABNORMAL) POCT glucose meter (05/08/2025 11:54 PM EDT) [facility] POCT Glucose 273(H) 74 - 99 mg/dL 05/08/2025 11:56 PM EDT [facility] Comment:Accuracy of a [...] for testing. Comment 05/08/2025 11:56 PM EDT [facility] Wing Commander ID Kaylin Barron 05/08/2025 11:56 PM EDT [facility] Device ID [id number] 05/08/2025 11:56 PM EDT [facility] Specimen Type POC Capillary 05/08/2025 11:56 PM EDT [facility] Blood Capillary blood specimen / Unknown 05/08/2025 11:54 PM EDT 05/08/2025 11:56 PM EDT Diane Guzman MD LAB POINT OF CARE T EST DOCKED DEVICE UNSOLICITED RESULTS Final Result Performing Organization Address City/State/[facility] Co de Phone Number [facility] [address] [place] [address] * (ABNORMAL) POCT glucose meter (05/08/2025 7:33 PM EDT) [facility] POCT Glucose 310(H) 74 - 99 mg/dL [...] for testing. Comment 05/08/2025 7:35 PM EDT [facility] Wing Commander ID Kaylin Barron 05/08/2025 7:35 PM EDT [facility] Device ID [id number] 05/08/2025 7:35 PM EDT [facility] Specimen Type POC Capillary 05/08/2025 7:35 PM EDT [facility] Blood Capillary blood specimen / Unknown 05/08/2025 7:33 PM EDT 05/08/2025 7:35 PM EDT Result [facility] Diane Guzman MD LAB POINT OF CARE T EST DOCKED DEVICE UNSOLICITED RESULTS Final Result Performing Organization Address City/[facility]/ZIP Co de Phone Number [facility]ALTHCARE [facility] [address] [place] [address] * (ABNORMAL) POCT glucose meter (05/08/2025 5:00 [...] Comment 05/08/2025 5:02 PM EDT [facility] Wing Commander ID Char Hinojosa 05/08/2025 5:02 PM EDT HEALTHCARE LAB Device ID [id number] 05/08/2025 5:02 PM EDT [facility] Specimen Type POC Capillary 05/08/2025 5:02 PM EDT [facility] Blood Capillary blood specimen / Unknown 05/08/2025 5:00 PM EDT 05/08/2025 5:02 PM EDT Diane Guzman MD LAB POINT OF CARE T EST DOCKED DEVICE UNSOLICITED RESULTS Final Result [facility] [address] [place] [address] * (ABNORMAL) POCT glucose meter (05/08/2025 11:42 AM EDT) POCT Glucose 298(H) 74 - 99 mg/dL 05/08/2025 11:44 AM EDT [facility] Comment:Accuracy of [...] Comment 05/08/2025 11:44 AM EDT [facility]ARE [facility] Wing Commander ID Char Hinojosa 05/08/2025 11:44 AM EDT HEALTHCARE LAB Device ID [id number] 05/08/2025 11:44 AM EDT [facility]ARE [facility] Specimen Type POC Capillary 05/08/2025 11:44 AM EDT [facility] Blood Capillary blood specimen / Unknown 05/08/2025 11:42 AM EDT 05/08/2025 11:44 AM EDT us Diane Guzman MD LAB POINT OF CARE T EST DOCKED DEVICE UNSOLICITED RESULTS Final Result Performing Organization Address City/State/[facility] Co de Phone Number [facility]CARE [facility] [address] [place] [address] * (ABNORMAL) POCT glucose meter (05/08/2025 8:05 AM EDT) [facility] Signature POCT Glucose 346(H) 74 - 99 mg/dL [...] for testing. Comment 05/08/2025 8:07 AM EDT [facility]ALTHCARE LAB Wing Commander ID Char Hinojosa 05/08/2025 8:07 AM EDT HEALTHCARE LAB Device ID [id number] 05/08/2025 8:07 AM EDT [facility]ALTH[facility]ARE [facility] Specimen Type POC Capillary 05/08/2025 8:07 AM EDT [facility] Blood Capillary blood specimen / Unknown 05/08/2025 8:05 AM EDT 05/08/2025 8:07 AM EDT us Diane Guzman MD LAB POINT OF CARE T EST DOCKED DEVICE UNSOLICITED RESULTS Final Result Performing Organization Address [facility] Co de Phone Number [facility]CARE [facility] [address] [place] [address] * (ABNORMAL) POCT glucose meter (05/08/2025 3:56 AM EDT) [facility] POCT Glucose 388(H) 74 - 99 mg/dL [...] Comment 05/08/2025 3:58 AM EDT HEALTHCARE LAB Wing Commander ID Stella Coleman 05/08/20 3:58 AM EDT HEALTHCARE LAB Device ID [id number] 05/08/2025 3:58 AM EDT [facility] Specimen Type POC Capillary 05/08/2025 3:58 AM EDT [facility] Blood Capillary blood specimen / Unknown 05/08/2025 3:56 AM EDT 05/08/2025 3:58 AM EDT Result [facility] Diane Guzman MD LAB POINT OF CARE T EST DOCKED DEVICE UNSOLICITED RESULTS Final Result Performing Organization Address City/[facility] Co de Phone Number [facility] [address] [place] [address] * (ABNORMAL) POCT glucose meter (05/07/2025 8:14 PM EDT) [facility] POCT Glucose 392(H) 74 - 99 mg/dL [...] for testing. Comment 05/07/2025 8:15 PM EDT [facility] Wing Commander ID Fela Coelho 05/07/2025 8:15 PM EDT [facility]ALTHCARE LAB Device ID [id number] 05/07/2025 8:15 PM EDT HEALTHCARE LAB Specimen Type POC Capillary 05/07/2025 8:15 PM EDT [facility] Blood Capillary blood specimen / Unknown 05/07/2025 8:14 PM EDT 05/07/2025 8:15 PM EDT Diane Guzman MD LAB POINT OF CARE T EST DOCKED DEVICE UNSOLICITED RESULTS Final Result Performing Organization Address City/[facility] Co de Phone Number [facility]ARE [facility] [address] [place] [address] * (ABNORMAL) POCT glucose meter (05/07/2025 5:10 PM EDT) [facility] POCT Glucose 411(H) 74 - 99 mg/dL [...] for testing. Comment 05/07/2025 5:13 PM EDT HEALTHCARE LAB Wing Commander ID Priyanka Negrete 05/07/20 5:13 PM EDT HEALTHCARE LAB Device ID [id number] 05/07/2025 5:13 PM EDT [facility]ARE LAB Specimen Type POC Capillary 05/07/2025 5:13 PM EDT [facility] Blood Capillary blood specimen / Unknown 05/07/2025 5:10 PM EDT 05/07/2025 5:13 PM EDT Diane Guzman MD LAB POINT OF CARE T EST DOCKED DEVICE UNSOLICITED RESULTS Final Result Performing Organization Address City/[facility]/ZIP Co de Phone Number [facility] [address] [place] [address] * (ABNORMAL) POCT glucose meter (05/07/2025 12:04 PM EDT) [facility] POCT Glucose 350(H) 74 - 99 mg/dL [...] 05/07/2025 12:10 PM EDT [facility] Wing Commander ID Priyanka Negrete 05/07/20 12:10 PM EDT HEALTHCARE LAB Device ID [id number] 05/07/2025 12:10 PM EDT [facility]ARE LAB Specimen Type POC Capillary 05/07/2025 12:10 PM EDT [facility] Blood Capillary blood specimen / Unknown 05/07/2025 12:04 PM EDT 05/07/2025 12:10 PM EDT Diane Guzman MD LAB POINT OF CARE T EST DOCKED DEVICE UNSOLICITED RESULTS Final Result Performing Organization Address City/State/[facility] Co de Phone Number [facility]ARE [facility] [address] [place] [address] * (ABNORMAL) POCT glucose meter (05/07/2025 7:41 AM EDT) [facility] POCT Glucose 356(H) 74 - 99 mg/dL [...] for testing. Comment 05/07/2025 7:44 AM EDT [facility] Wing Commander ID Priyanka Negrete 05/07/20 7:44 AM EDT HEALTHCARE LAB Device ID [id number] 05/07/2025 7:44 AM EDT [facility] Specimen Type POC Capillary 05/07/2025 7:44 AM EDT [facility] Blood Capillary blood specimen / Unknown 05/07/2025 7:41 AM EDT 05/07/2025 7:44 AM EDT Diane Guzman MD LAB POINT OF CARE T EST DOCKED DEVICE UNSOLICITED RESULTS Final Result Performing Organization Address City/[facility] de Phone Number [facility] [address] [place] [address] * (ABNORMAL) POCT glucose meter (05/07/2025 3:41 [...] Comment 05/07/2025 3:43 AM EDT HEALTHCARE LAB Wing Commander ID Won Casas 05/07/2025 3:43 AM EDT HEALTHCARE LAB Device ID [id number] 05/07/2025 3:43 AM EDT [facility] Specimen Type POC Capillary 05/07/2025 3:43 AM EDT [facility] Blood Capillary blood specimen / Unknown 05/07/2025 3:41 AM EDT 05/07/2025 3:43 AM EDT Diane Guzman MD LAB POINT OF CARE T EST DOCKED DEVICE UNSOLICITED RESULTS Final Result Performing Organization Address City/[facility] Co de Phone Number [facility] [address] [place] [address] * (ABNORMAL) POCT glucose meter (05/06/2025 8:01 PM EDT) POCT Glucose 324(H) 74 - 99 mg/dL [...] Comment 05/06/2025 8:02 PM EDT HEALTHCARE LAB Wing Commander ID Won Casas 05/06/2025 8:02 PM EDT HEALTHCARE LAB Device ID [id number] 05/06/2025 8:02 PM EDT [facility]ARE LAB Specimen Type POC Capillary 05/06/2025 8:02 PM EDT [facility] Blood Capillary blood specimen / Unknown 05/06/2025 8:01 PM EDT 05/06/2025 8:02 PM EDT Diane Guzman MD LAB POINT OF CARE T EST DOCKED DEVICE UNSOLICITED RESULTS Final Result Performing Organization Address City/State/[facility] Co de Phone Number [facility] [address] [place] [address] * (ABNORMAL) POCT glucose meter (05/06/2025 4:40 PM EDT) [facility] POCT Glucose 212(H) 74 - 99 mg/dL 05/06/2025 4:46 PM EDT [facility] Comment:Accuracy of [...] Comment 05/06/2025 4:46 PM EDT [facility]CARE LAB Wing Commander ID Sherrell Navarro 05/06/2025 4:46 PM EDT HEALTHCARE LAB Device ID [id number] 05/06/2025 4:46 PM EDT [facility] Specimen Type POC Capillary 05/06/2025 4:46 PM EDT [facility] Blood Capillary blood specimen / Unknown 05/06/2025 4:40 PM EDT 05/06/2025 4:46 PM EDT us Diane Guzman MD LAB POINT OF CARE T EST DOCKED DEVICE UNSOLICITED RESULTS Final Result Performing Organization Address City/[facility]/ZIP Co de Phone Number [facility] [address] [place] [address] * PSA, diagnostic (05/06/2025 12:27 PM EDT) [facility] PSA, Diagnostic, Serum 0.03 0.00 - 2.50 ng/mL 05/06/2025 1:10 PM EDT [facility] Blood Venous blood specimen / Unknown Venipuncture / Unknown 05/06/2025 12:27 PM EDT 05/06/2025 12:33 PM EDT Narrative [facility] - 05/06/2025 1:10 PM EDT Performed by [employer] electrochemiluminescent immunoassay which is standardized against the PSA [place] Reference Standard (WHO 96/670). Results obtained with different test methods or kits cannot be used interchangeably. Diane Guzman MD LAB BLOOD ORDERABLES Final Result Performing Organization Address City/[facility]/[place] [address] * (ABNORMAL) POCT glucose meter (05/06/2025 11:28 AM EDT) [facility] POCT Glucose 337(H) 74 - 99 mg/dL 05/06/2025 11:30 AM EDT [facility] Comment:Accuracy of [...] for testing. Comment 05/06/2025 11:30 AM EDT [facility] Wing Commander ID Sherrell Navarro 05/06/2025 11:30 AM EDT [facility] Device ID [id number] 05/06/2025 11:30 AM EDT [facility] Specimen Type POC Capillary 05/06/2025 11:30 AM EDT [facility] Blood Capillary blood specimen / Unknown 05/06/2025 11:28 AM EDT 05/06/2025 11:30 AM EDT Diane Guzman MD LAB POINT OF CARE T EST DOCKED DEVICE UNSOLICITED RESULTS Final Result Performing Organization Address [facility] de Phone Number HEALTHCARE LAB [address] [place] [address] * (ABNORMAL) POCT glucose meter (05/06/2025 8:13 AM EDT) Pathologist [facility] POCT Glucose 348(H) 74 - 99 mg/dL 05/06/2025 8:23 AM EDT [facility] Comment:Accuracy of [...] Comment 05/06/2025 8:23 AM EDT HEALTHCARE LAB Wing Commander ID Sherrell Navarro 05/06/2025 8:23 AM EDT HEALTHCARE LAB Device ID [id number] 05/06/2025 8:23 AM EDT [facility] Specimen Type POC Capillary 05/06/2025 8:23 AM EDT [facility] Blood Capillary blood specimen / Unknown 05/06/2025 8:13 AM EDT 05/06/2025 8:23 AM EDT Diane Guzman MD LAB POINT OF CARE T EST DOCKED DEVICE UNSOLICITED RESULTS Final Result Performing Organization Address City/[facility] de Phone Number [facility] [address] [place] [address] * (ABNORMAL) POCT glucose meter (05/06/2025 3:09 AM EDT) [facility] POCT Glucose 364(H) 74 - 99 mg/dL [...] for testing. Comment 05/06/2025 3:11 AM EDT HEALTHCARE LAB Wing Commander ID Won Casas 05/06/2025 3:11 AM EDT HEALTHCARE LAB Device ID [id number] 05/06/2025 3:11 AM EDT HEALTHCARE LAB Specimen Type POC Capillary 05/06/2025 3:11 AM EDT [facility] Blood Capillary blood specimen / Unknown 05/06/2025 3:09 AM EDT 05/06/2025 3:11 AM EDT Diane Guzman MD LAB POINT OF CARE T EST DOCKED DEVICE UNSOLICITED RESULTS Final Result Performing Organization Address [facility] Co de Phone Number [facility]ARE LAB [address] [place] [address] * (ABNORMAL) POCT glucose meter (05/05/2025 8:19 PM EDT) [facility] POCT Glucose 324(H) 74 - 99 mg/dL [...] Comment 05/05/2025 8:20 PM EDT HEALTHCARE LAB Wing Commander ID Won Casas 05/05/2025 8:20 PM EDT HEALTHCARE LAB Device ID [id number] 05/05/2025 8:20 PM EDT [facility]ARE LAB Specimen Type POC Capillary 05/05/2025 8:20 PM EDT [facility] Blood Capillary blood specimen / Unknown 05/05/2025 8:19 PM EDT 05/05/2025 8:20 PM EDT us Diane Guzman MD LAB POINT OF CARE T EST DOCKED DEVICE UNSOLICITED RESULTS Final Result Performing Organization Address [facility] Co de Phone Number [facility]ARE [facility] [address] [place] [address] * (ABNORMAL) POCT glucose meter (05/05/2025 5:09 PM EDT) [facility] POCT Glucose 371(H) 74 - 99 mg/dL [...] Comment 05/05/2025 5:14 PM EDT HEALTHCARE LAB Wing Commander ID Sherrell Navarro 05/05/2025 5:14 PM EDT HEALTHCARE LAB Device ID [id number] 05/05/2025 5:14 PM EDT HEALTHCARE LAB Specimen Type POC Capillary 05/05/2025 5:14 PM EDT [facility] Blood Capillary blood specimen / Unknown 05/05/2025 5:09 PM EDT 05/05/2025 5:14 PM EDT Diane Guzman MD LAB POINT OF CARE T EST DOCKED DEVICE UNSOLICITED RESULTS Final Result [facility] [address] [place] [address] * (ABNORMAL) POCT glucose meter (05/05/2025 11:29 AM EDT) [facility] POCT Glucose 292(H) 74 - 99 mg/dL [...] for testing. Comment 05/05/2025 11:32 AM EDT [facility] Wing Commander ID Sherrell Navarro 05/05/2025 11:32 AM EDT [facility] Device ID [id number] 05/05/2025 11:32 AM EDT [facility]ALTHCARE [facility] Specimen Type POC Capillary 05/05/2025 11:32 AM EDT [facility] Blood Capillary blood specimen / Unknown 05/05/2025 11:29 AM EDT 05/05/2025 11:32 AM EDT Diane Guzman MD LAB POINT OF CARE T EST DOCKED DEVICE UNSOLICITED RESULTS Final Result Performing Organization Address City/[facility]/ZIP Co de Phone Number [facility] [address] [place] [address] * (ABNORMAL) POCT glucose meter (05/05/2025 7:55 [...] for testing. Comment 05/05/2025 7:57 AM EDT [facility]ALTHCARE LAB Wing Commander ID Sherrell Navarro 05/05/2025 7:57 AM EDT HEALTHCARE LAB Device ID [id number] 05/05/2025 7:57 AM EDT HEALTH[facility]ARE LAB Specimen Type POC Capillary 05/05/2025 7:57 AM EDT [facility] Blood Capillary blood specimen / Unknown 05/05/2025 7:55 AM EDT 05/05/2025 7:57 AM EDT Diane Guzman MD LAB POINT OF CARE T EST DOCKED DEVICE UNSOLICITED RESULTS Final Result Performing Organization Address City/[facility]/ZIP Co de Phone Number [facility]ARE [facility] [address] [place] [address] * (ABNORMAL) POCT glucose meter (05/04/2025 7:35 PM EDT) POCT Glucose 236(H) 74 - 99 mg/dL [...] for testing. Comment 05/04/2025 7:37 PM EDT HEALTHCARE LAB Wing Commander ID Kaylin Barron 05/04/2025 7:37 PM EDT HEALTHCARE LAB Device ID [id number] 05/04/2025 7:37 PM EDT HEALTHCARE LAB Specimen Type POC Capillary 05/04/2025 7:37 PM EDT [facility] Blood Capillary blood specimen / Unknown 05/04/2025 7:35 PM EDT 05/04/2025 7:37 PM EDT Diane Guzman MD LAB POINT OF CARE T EST DOCKED DEVICE UNSOLICITED RESULTS Final Result Performing Organization Address City/State/[facility] Co de Phone Number [facility] [address] [place] [address] * (ABNORMAL) POCT glucose meter (05/04/2025 4:51 PM EDT) [facility] POCT Glucose 233(H) 74 - 99 mg/dL [...] for testing. Comment 05/04/2025 4:53 PM EDT [facility] Wing Commander ID Araceli Doran 025 4:53 PM EDT [facility] Device ID [id number] 05/04/2025 4:53 PM EDT [facility]ALTH[facility] LAB Specimen Type POC Capillary 05/04/2025 4:53 PM EDT [facility] Blood Capillary blood specimen / Unknown 05/04/2025 4:51 PM EDT 05/04/2025 4:53 PM EDT Diane Guzman MD LAB POINT OF CARE T EST DOCKED DEVICE UNSOLICITED RESULTS Final Result Performing Organization Address City/[facility] de Phone Number HEALTHCARE LAB [address] [place] [address] * (ABNORMAL) POCT glucose meter (05/04/2025 11:51 AM EDT) Pathologist [facility] POCT Glucose 271(H) 74 - 99 mg/dL [...] Comment 05/04/2025 11:56 AM EDT HEALTHCARE LAB Wing Commander ID Araceli Doran 025 11:56 AM EDT [facility] Device ID [id number] 05/04/2025 11:56 AM EDT [facility] Specimen Type POC Capillary 05/04/2025 11:56 AM EDT [facility] Blood Capillary blood specimen / Unknown 05/04/2025 11:51 AM EDT 05/04/2025 11:56 AM EDT Diane Guzman MD LAB POINT OF CARE T EST DOCKED DEVICE UNSOLICITED RESULTS Final Result Performing Organization Address City/[facility] Co de Phone Number [facility] [address] [place] [address] * (ABNORMAL) POCT glucose meter (05/04/2025 8:09 AM EDT) Pathologist [facility] POCT Glucose 259(H) 74 - 99 mg/dL [...] for testing. Comment 05/04/2025 8:17 AM EDT [facility] Wing Commander ID Araceli Doran 025 8:17 AM EDT [facility] Device ID [id number] 05/04/2025 8:17 AM EDT [facility] Specimen Type POC Capillary 05/04/2025 8:17 AM EDT [facility] Blood Capillary blood specimen / Unknown 05/04/2025 8:09 AM EDT 05/04/2025 8:17 AM EDT us Diane Guzman MD LAB POINT OF CARE T EST DOCKED DEVICE UNSOLICITED RESULTS Final Result Performing Organization Address [facility] de Phone Number [facility] [address] [place] [address] * (ABNORMAL) POCT glucose meter (05/04/2025 4:44 AM EDT) POCT Glucose 335(H) 74 - 99 mg/dL [...] Comment 05/04/2025 4:46 AM EDT HEALTHCARE LAB Wing Commander ID Kaylin Barron 05/04/2025 4:46 AM EDT HEALTHCARE LAB Device ID [id number] 05/04/2025 4:46 AM EDT [facility]ALTH[facility]ARE LAB Specimen Type POC Capillary 05/04/2025 4:46 AM EDT [facility] Blood Capillary blood specimen / Unknown 05/04/2025 4:44 AM EDT 05/04/2025 4:46 AM EDT us Diane Guzman MD LAB POINT OF CARE T EST DOCKED DEVICE UNSOLICITED RESULTS Final Result Performing Organization Address City/[facility] Co de Phone Number [facility] [address] [place] [address] * (ABNORMAL) POCT glucose meter (05/03/2025 7:27 PM EDT) [facility] POCT Glucose 331(H) 74 - 99 mg/dL [...] 05/03/2025 7:33 PM EDT [facility] Wing Commander ID Kaylin Barron 05/03/2025 7:33 PM EDT HEALTHCARE LAB Device ID [id number] 05/03/2025 7:33 PM EDT [facility]ARE [facility] Specimen Type POC Capillary 05/03/2025 7:33 PM EDT [facility] Blood Capillary blood specimen / Unknown 05/03/2025 7:27 PM EDT 05/03/2025 7:33 PM EDT Diane Guzman MD LAB POINT OF CARE T EST DOCKED DEVICE UNSOLICITED RESULTS Final Result [facility] [address] [place] [address] * (ABNORMAL) Comprehensive metabolic panel (05/03/2025 6:22 PM EDT) [facility] Glucose, Plasma 290(H) 74 - 99 mg/dL 05/03/2025 7:13 PM EDT [facility] BUN, Plasma 14 7 - 21 mg/dL 05/03/2025 7:13 PM EDT [facility] Creatinine, Plasma 0.71 0.70 - 1.20 mg/dL 05/03/2025 7:13 PM EDT [facility] BUN/Creatinine Ratio 20 05/03/2025 7:13 PM EDT [facility] Sodium, Plasma 133(L) 136 - 145 mmol/L 05/03/2025 7:13 PM EDT [facility] Potassium, Plasma 3.6 3.6 - 4.9 mmol/L 05/03/2025 7:13 PM EDT [facility] Chloride, Plasma 87(L) 97 - 107 mmol/L 05/03/2025 7:13 PM EDT [facility] CO2, Plasma 37(H) 22 - 29 mmol/L 05/03/2025 7:13 PM EDT [facility] Anion Gap 9 6 - 16 mmol/L 05/03/2025 7:13 PM EDT [facility] Total Calcium, Plasma 9.4 8.9 - 10.2 mg/dL 05/03/2025 7:13 PM EDT [facility] Total Protein 8.0(H) 6.3 - 7.9 g/dL 05/03/2025 7:13 PM EDT [facility] Albumin, Plasma 3.6 3.5 - 5.2 g/dL 05/03/2025 7:13 PM EDT [facility] AST, Plasma 18 10 - 50 U/L 05/03/2025 7:13 PM EDT [facility] ALT, Plasma 12 10 - 50 U/L 05/03/2025 7:13 PM EDT [facility] Alkaline Phosphatase, Plasma 64 40 - 115 U/L 05/03/2025 7:13 PM EDT [facility] Total Bilirubin, Plasma 0.7 0.2 - 1.1 mg/dL 05/03/2025 7:13 PM EDT [facility] eGFRcr 113.9 mL/min/1.7 3m*2 05/03/2025 7:13 PM EDT [facility] Comment:Reported eGFRcr in m L/min/1.73m2 is based the CKD-EPI 2020 equation that does not use a race coefficient. Blood Venous blood specimen / Unknown Venipuncture / Unknown 05/03/2025 6:22 PM EDT 05/03/2025 6:38 PM EDT us Diane Guzman MD LAB BLOOD ORDERABLES Final Result [facility] [address] [place] [address] * Creatine Kinase (CK), Total (05/03/2025 6:22 PM EDT) [facility] Creatine Kinase, Plasma 54 49 - 320 U/L 05/03/2025 7:13 PM EDT [facility] Blood Venous blood specimen / Unknown Venipuncture / Unknown 05/03/2025 6:22 PM EDT 05/03/2025 6:38 PM EDT Diane Guzman MD LAB BLOOD ORDERABLES Final Result Performing Organization Address City/[facility]/ZIP Co de Phone Number [facility] [address] [place] [address] * (ABNORMAL) POCT glucose meter (05/03/2025 5:30 PM EDT) [facility] POCT Glucose 258(H) 74 - 99 mg/dL [...] Comment 05/03/2025 5:33 PM EDT HEALTHCARE LAB Wing Commander ID Dunia Montgomery 05/03/2025 5:33 PM EDT HEALTHCARE LAB Device ID [id number] 05/03/2025 5:33 PM EDT [facility]ALTH[facility]ARE LAB Specimen Type POC Capillary 05/03/2025 5:33 PM EDT [facility] Blood Capillary blood specimen / Unknown 05/03/2025 5:30 PM EDT 05/03/2025 5:33 PM EDT Diane Guzman MD LAB POINT OF CARE T EST DOCKED DEVICE UNSOLICITED RESULTS Final Result [facility] [address] [place] [address] * (ABNORMAL) POCT glucose meter (05/03/2025 11:36 AM EDT) [facility] POCT Glucose 310(H) 74 - 99 mg/dL 05/03/2025 11:38 AM EDT [facility]ALTH[facility] Comment:Accuracy of a [...] Comment 05/03/2025 11:38 AM EDT HEALTHCARE LAB Wing Commander ID Kindra Cardoza 05/03/2025 11:38 AM EDT HEALTHCARE LAB Device ID [id number] 05/03/2025 11:38 AM EDT [facility]ALTH[facility]ARE [facility] Specimen Type POC Capillary 05/03/2025 11:38 AM EDT [facility] Blood Capillary blood specimen / Unknown 05/03/2025 11:36 AM EDT 05/03/2025 11:38 AM EDT Diane Guzman MD LAB POINT OF CARE T EST DOCKED DEVICE UNSOLICITED RESULTS Final Result Performing Organization Address City/State/[facility] Co de Phone Number [facility] [address] [place] [address] * (ABNORMAL) POCT glucose meter (05/03/2025 8:09 AM EDT) [facility] POCT Glucose 339(H) 74 - 99 mg/dL 05/03/2025 8:11 AM EDT [facility] Comment:Accuracy of a [...] Comment 05/03/2025 8:11 AM EDT [facility]ALTH[facility]ARE LAB Wing Commander ID Gatica Dunia Zendejas 05/03/2025 8:11 AM EDT HEALTH[facility]ARE LAB Device ID [id number] 05/03/2025 8:11 AM EDT [facility]ALTH[facility]ARE [facility] Specimen Type POC Capillary 05/03/2025 8:11 AM EDT [facility] Blood Capillary blood specimen / Unknown 05/03/2025 8:09 AM EDT 05/03/2025 8:11 AM EDT Diane Guzman MD LAB POINT OF CARE T EST DOCKED DEVICE UNSOLICITED RESULTS Final Result Performing Organization Address [facility] Co de Phone Number [facility] [address] [place] [address] * (ABNORMAL) POCT glucose meter (05/03/2025 3:37 AM EDT) [facility] POCT Glucose 372(H) 74 - 99 mg/dL 05/03/2025 3:40 AM EDT [facility]ALTH[facility]ARE [facility] Comment:Accuracy of a [...] for testing. Comment 05/03/2025 3:40 AM EDT [facility] Wing Commander ID Maribell Saeed 3:40 AM EDT HEALTHCARE LAB Device ID [id number] 05/03/2025 3:40 AM EDT [facility] Specimen Type POC Capillary 05/03/2025 3:40 AM EDT [facility] Blood Capillary blood specimen / Unknown 05/03/2025 3:37 AM EDT 05/03/2025 3:40 AM EDT Diane Guzman MD LAB POINT OF CARE T EST DOCKED DEVICE UNSOLICITED RESULTS Final Result Performing Organization Address City/[facility] Co de Phone Number [facility] [address] [place] [address] * (ABNORMAL) CBC and Differential (05/03/2025 3:16 AM EDT) [facility] WBC Count 6.86 3.70 - 10.30 10*3/uL LAB HEMATOLOGY METHOD 05/03/2025 3:33 AM EDT [facility] RBC Count 3.82(L) 4.60 - 6.10 10*6/uL LAB HEMATOLOGY METHOD 05/03/2025 3:33 AM EDT [facility] HGB 8.9(L) 13.7 - 17.5 g/dL LAB HEMATOLOGY METHOD 05/03/2025 3:33 AM EDT [facility] HCT 29.2(L) 40.0 - 51.0 % LAB HEMATOLOGY METHOD 05/03/2025 3:33 AM EDT [facility] Platelet Count 202 155 - 369 10*3/uL LAB HEMATOLOGY METHOD 05/03/2025 3:33 AM EDT [facility] MCV 76(L) 79 - 98 fL LAB HEMATOLOGY METHOD 05/03/2025 3:33 AM EDT [facility] MCH 23.3(L) 26.0 - 32.0 pg LAB HEMATOLOGY METHOD 05/03/2025 3:33 AM EDT [facility] MCHC 30.5(L) 30.7 - 35.5 g/dL LAB HEMATOLOGY METHOD 05/03/2025 3:33 AM EDT [facility] RDW 18.8(H) 11.5 - 14.5 % LAB HEMATOLOGY METHOD 05/03/2025 3:33 AM EDT [facility] MPV 9.1 8.8 - 12.5 fL LAB HEMATOLOGY METHOD 05/03/2025 3:33 AM EDT [facility] nRBC 0.0 <=0.0 per 100 WBCs LAB HEMATOLOGY METHOD 05/03/2025 3:33 AM EDT [facility] Differential Type Automated LAB HEMATOLOGY METHOD 05/03/2025 3:33 AM EDT [facility] Neutrophils % 70 % LAB HEMATOLOGY METHOD 05/03/2025 3:33 AM EDT [facility] Lymphocytes % 15 % LAB HEMATOLOGY METHOD 05/03/2025 3:33 AM EDT [facility] Monocytes % 9 % LAB HEMATOLOGY METHOD 05/03/2025 3:33 AM EDT [facility] Eosinophils % 5 % LAB HEMATOLOGY METHOD 05/03/2025 3:33 AM EDT [facility] Basophils % 0 % LAB HEMATOLOGY METHOD 05/03/2025 3:33 AM EDT [facility] Immature Granulocytes % 1 % LAB HEMATOLOGY METHOD 05/03/2025 3:33 AM EDT [facility] Neutrophils Absolute 4.85 1.60 - 6.10 10*3/uL LAB HEMATOLOGY METHOD 05/03/2025 3:33 AM EDT [facility] Lymphocytes Absolute 1.03(L) 1.20 - 3.90 10*3/uL LAB HEMATOLOGY METHOD 05/03/2025 3:33 AM EDT [facility] Monocytes Absolute 0.59 0.30 - 0.90 10*3/uL LAB HEMATOLOGY METHOD 05/03/2025 3:33 AM EDT [facility] Eosinophils Absolute 0.32 0.00 - 0.50 10*3/uL LAB HEMATOLOGY METHOD 05/03/2025 3:33 AM EDT [facility] Basophils Absolute 0.03 0.00 - 0.10 10*3/uL LAB HEMATOLOGY METHOD 05/03/2025 3:33 AM EDT [facility] Immature Granulocytes Absolute 0.04 0.00 - 0.06 10*3/uL LAB HEMATOLOGY METHOD 05/03/2025 3:33 AM EDT [facility] Blood Venous blood specimen / Unknown Venipuncture / Unknown 05/03/2025 3:16 AM EDT 05/03/2025 3:25 AM EDT Narrative [facility] - 05/03/2025 3:33 AM EDT Therapeutic decision making should be based on absolute values, rather than percentages. us Marjorie Myers MD LAB BLOOD ORDERABLES Final Resul t [facility] [address] [place] [address] * (ABNORMAL) Basic Metabolic Panel, Plasma (05/03/2025 3:16 AM EDT) Glucose, Plasma 399(H) 74 - 99 mg/dL 05/03/2025 4:02 AM EDT [facility] BUN, Plasma 15 7 - 21 mg/dL 05/03/2025 4:02 AM EDT [facility] Creatinine, Plasma 0.78 0.70 - 1.20 mg/dL 05/03/2025 4:02 AM EDT [facility] BUN/Creatinine Ratio 19 05/03/2025 4:02 AM EDT [facility] Sodium, Plasma 136 136 - 145 mmol/L 05/03/2025 4:02 AM EDT [facility] Potassium, Plasma 3.6 3.6 - 4.9 mmol/L 05/03/2025 4:02 AM EDT [facility] Chloride, Plasma 90(L) 97 - 107 mmol/L 05/03/2025 4:02 AM EDT [facility] CO2, Plasma 37(H) 22 - 29 mmol/L 05/03/2025 4:02 AM EDT [facility] Anion Gap 9 6 - 16 mmol/L 05/03/2025 4:02 AM EDT [facility] Total Calcium, Plasma 9.0 8.9 - 10.2 mg/dL 05/03/2025 4:02 AM EDT [facility] eGFRcr 110.7 mL/min/1.7 3m*2 05/03/2025 4:02 AM EDT [facility] Comment:Reported eGFRcr in m L/min/1.73m2 is based the CKD-EPI 2020 equation that does not use a race coefficient. Blood Venous blood specimen / Unknown Venipuncture / Unknown 05/03/2025 3:16 AM EDT 05/03/2025 3:24 AM EDT us Marjorie Myers MD LAB BLOOD ORDERABLES Final Resul t Performing Organization Address City/[facility]/ZIP Co de Phone Number [facility] [address] [place] [address] * (ABNORMAL) Magnesium, Plasma (05/03/2025 3:16 AM EDT) Magnesium, Plasma 1.7(L) 1.9 - 2.4 mg/dL 05/03/2025 4:02 AM EDT [facility] Blood Venous blood specimen / Unknown Venipuncture / Unknown 05/03/2025 3:16 AM EDT 05/03/2025 3:24 AM EDT us Marjorie Myers MD LAB BLOOD ORDERABLES Final Resul t [facility] [address] [place] [address] * Phosphorus, Plasma (05/03/2025 3:16 AM EDT) Phosphorus, Plasma 3.6 2.5 - 4.5 mg/dL 05/03/2025 4:02 AM EDT [facility] Blood Venous blood specimen / Unknown Venipuncture / Unknown 05/03/2025 3:16 AM EDT 05/03/2025 3:24 AM EDT Marjorie Myers MD LAB BLOOD ORDERAB[place] [address] * Hepatitis B Core Total Antibody IgG,IgM (05/03/2025 3:16 AM EDT) [facility] Hepatitis B Core Total Antibody IgG,IgM Negative Negative 05/03/2025 4:28 AM EDT [facility] Blood Venous blood specimen / Unknown Venipuncture / Unknown 05/03/2025 3:16 AM EDT 05/03/2025 3:24 AM EDT Diane Guzman MD LAB BLOOD ORDERABLES Final Result [facility] [address] [place] [address] * Hepatitis B Surface Antigen (05/03/2025 3:16 AM EDT) [facility] Hepatitis B Surf Antigen Negative Negative 05/03/2025 4:28 AM EDT [facility] Blood Venous blood specimen / Unknown Venipuncture / Unknown 05/03/2025 3:16 AM EDT 05/03/2025 3:24 AM EDT us Diane Guzman MD LAB BLOOD ORDERABLES Final Result [facility] [address] [place] [address] * Hepatitis B Surface Antibody, Quantitative (05/03/2025 3:16 AM EDT) [facility] Hepatitis B Surface Antibody, Quantitative <8.00 NonReactiv e: <8, Grayzone: 8 - <12, Reactive: >= 12 mIU/mL 05/03/2025 4:28 AM EDT [facility] Comment: Nonreactive. Individual is considered not immune to HBV infection. Blood Venous blood specimen / Unknown Venipuncture / Unknown 05/03/2025 3:16 AM EDT 05/03/2025 3:24 AM EDT Diane Guzman MD LAB BLOOD ORDERABLES Final Result Performing Organization Address City/[facility]/ZIP Co de Phone Number [facility] [address] [place] [address] * Hepatitis A Antibody IgG (05/03/2025 3:16 AM EDT) [facility] Hepatitis A Antibody IgG Negative Negative 05/03/2025 4:28 AM EDT [facility] Blood Venous blood specimen / Unknown Venipuncture / Unknown 05/03/2025 3:16 AM EDT 05/03/2025 3:24 AM EDT Diane Guzman MD LAB BLOOD ORDERABLES Final Result Performing Organization Address City/[facility]/ZIP Co de Phone Number [facility] [address] [place] [address] * (ABNORMAL) POCT glucose meter (05/02/2025 8:48 PM EDT) [facility] POCT Glucose 325(H) 74 - 99 mg/dL 05/02/2025 8:50 PM EDT [facility] Comment:Accuracy of a glucos e result [...] for testing. Comment 05/02/2025 8:50 PM EDT [facility] Wing Commander ID TanoRaffy puckettce 8:50 PM EDT [facility] Device ID [id number] 05/02/2025 8:50 PM EDT [facility] Specimen Type POC Capillary 05/02/2025 8:50 PM EDT [facility] Blood Capillary blood specimen / Unknown 05/02/2025 8:48 PM EDT 05/02/2025 8:50 PM EDT Diane Guzman MD LAB POINT OF CARE T EST DOCKED DEVICE UNSOLICITED RESULTS Final Result Performing Organization Address City/[facility] Co de Phone Number [facility] [address] [place] [address] * (ABNORMAL) POCT glucose meter (05/02/2025 4:30 PM EDT) [facility] POCT Glucose 250(H) 74 - 99 mg/dL 05/02/2025 4:32 PM EDT [facility] Comment:Accuracy of [...] for testing. Comment 05/02/2025 4:32 PM EDT [facility] Wing Commander ID Sebastián Kenny Amarjit 4:32 PM EDT [facility] Device ID [id number] 05/02/2025 4:32 PM EDT [facility] Specimen Type POC Capillary 05/02/2025 4:32 PM EDT [facility] Blood Capillary blood specimen / Unknown 05/02/2025 4:30 PM EDT 05/02/2025 4:32 PM EDT Diane Guzman MD LAB POINT OF CARE T EST DOCKED DEVICE UNSOLICITED RESULTS Final Result Performing Organization Address City/[facility] Co de Phone Number [facility] [address] [place] [address] * Nasopharyngeal Respiratory Panel (05/02/2025 1:05 PM EDT) [facility] Nasopharyngeal Respiratory PCR Interpretation Not Detected for all analytes Not Detected for all analytes 05/02/2025 3:14 PM EDT [facility] Swab Nasopharyngeal structure / Unknown Non-blood Collection / Unknown 05/02/2025 1:05 PM EDT 05/02/2025 1:12 PM EDT Narrative [facility] - 05/02/2025 3:14 PM EDT This [...] Respiratory PCR Panel is performed using the [employer] OralCarelex instrument. This test is FDA approved for use with Nasopharyngeal swabs only. This test is used for clinical purposes. It should not be regarded as investigational or for research. [facility] Clinical Microbiology Laboratory is certified under the Clinical Laboratory Improvement Amendments of 1988 (CLIA-88) as qualified to perform high complexity clinical laboratory testing. Diane Guzman MD LAB MICROBIOLOGY - GENERAL ORDERABLES Final Result [facility] [address] [place] [address] * (ABNORMAL) POCT glucose meter (05/02/2025 12:08 PM EDT) [facility] POCT Glucose 278(H) 74 - 99 mg/dL 05/02/2025 12:10 PM EDT [facility] Comment:Accuracy of a glucos e result [...] for testing. Comment 05/02/2025 12:10 PM EDT [facility] Wing Commander ID Sebastián Kenny 12:10 PM EDT HE[facility]ARE LAB Device ID [id number] 05/02/2025 12:10 PM EDT [facility] Specimen Type POC Capillary 05/02/2025 12:10 PM EDT [facility] Blood Capillary blood specimen / Unknown 05/02/2025 12:08 PM EDT 05/02/2025 12:10 PM EDT Diane Guzman MD LAB POINT OF CARE T EST DOCKED DEVICE UNSOLICITED RESULTS Final Result Performing Organization Address City/[facility] Co de Phone Number [facility] [address] [place] [address] * (ABNORMAL) POCT glucose meter (05/02/2025 8:11 AM EDT) [facility] POCT Glucose 283(H) 74 - 99 mg/dL 05/02/2025 8:12 AM EDT [facility] Comment:Accuracy of [...] Comment 05/02/2025 8:12 AM EDT [facility] Wing Commander ID Sebastián Kenny 8:12 AM EDT [facility] Device ID [id number] 05/02/2025 8:12 AM EDT [facility] Specimen Type POC Capillary 05/02/2025 8:12 AM EDT [facility] Blood Capillary blood specimen / Unknown 05/02/2025 8:11 AM EDT 05/02/2025 8:12 AM EDT Diane Guzman MD LAB POINT OF CARE T EST DOCKED DEVICE UNSOLICITED RESULTS Final Result Performing Organization Address City/[facility] Co de Phone Number [facility] [address] [place] [address] * (ABNORMAL) POCT glucose meter (05/02/2025 4:01 AM EDT) [facility] POCT Glucose 320(H) 74 - 99 mg/dL [...] Comment 05/02/2025 4:03 AM EDT [facility] Wing Commander ID Stella Coleman 05/02/20 4:03 AM EDT [facility] LAB Device ID [id number] 05/02/2025 4:03 AM EDT [facility] Specimen Type POC Capillary 05/02/2025 4:03 AM EDT [facility] Blood Capillary blood specimen / Unknown 05/02/2025 4:01 AM EDT 05/02/2025 4:03 AM EDT Marjorie Myers MD LAB POINT OF CARE TE ST DOCKED DEVICE UNSOLICITED RESULTS Final Result Performing Organization Address City/State/[facility] Co de Phone Number [facility]ARE LAB [address] [place] [address] * (ABNORMAL) CBC and Differential (05/02/2025 3:10 AM EDT) [facility] WBC Count 7.39 3.70 - 10.30 10*3/uL LAB HEMATOLOGY METHOD 05/02/2025 3:23 AM EDT [facility] RBC Count 3.88(L) 4.60 - 6.10 10*6/uL LAB HEMATOLOGY METHOD 05/02/2025 3:23 AM EDT [facility] HGB 8.8(L) 13.7 - 17.5 g/dL LAB HEMATOLOGY METHOD 05/02/2025 3:23 AM EDT [facility] HCT 29.3(L) 40.0 - 51.0 % LAB HEMATOLOGY METHOD 05/02/2025 3:23 AM EDT [facility] Platelet Count 205 155 - 369 10*3/uL LAB HEMATOLOGY METHOD 05/02/2025 3:23 AM EDT [facility] MCV 76(L) 79 - 98 fL LAB HEMATOLOGY METHOD 05/02/2025 3:23 AM EDT [facility] MCH 22.7(L) 26.0 - 32.0 pg LAB HEMATOLOGY METHOD 05/02/2025 3:23 AM EDT [facility] MCHC 30.0(L) 30.7 - 35.5 g/dL LAB HEMATOLOGY METHOD 05/02/2025 3:23 AM EDT [facility] RDW 19.1(H) 11.5 - 14.5 % LAB HEMATOLOGY METHOD 05/02/2025 3:23 AM EDT [facility] MPV 8.5(L) 8.8 - 12.5 fL LAB HEMATOLOGY METHOD 05/02/2025 3:23 AM EDT [facility] nRBC 0.0 <=0.0 per 100 WBCs LAB HEMATOLOGY METHOD 05/02/2025 3:23 AM EDT [facility] Differential Type Automated LAB HEMATOLOGY METHOD 05/02/2025 3:23 AM EDT [facility] Neutrophils % 74 % LAB HEMATOLOGY METHOD 05/02/2025 3:23 AM EDT [facility] Lymphocytes % 13 % LAB HEMATOLOGY METHOD 05/02/2025 3:23 AM EDT [facility] Monocytes % 8 % LAB HEMATOLOGY METHOD 05/02/2025 3:23 AM EDT [facility] Eosinophils % 4 % LAB HEMATOLOGY METHOD 05/02/2025 3:23 AM EDT [facility] Basophils % 0 % LAB HEMATOLOGY METHOD 05/02/2025 3:23 AM EDT [facility] Immature Granulocytes % 1 % LAB HEMATOLOGY METHOD 05/02/2025 3:23 AM EDT [facility] Neutrophils Absolute 5.45 1.60 - 6.10 10*3/uL LAB HEMATOLOGY METHOD 05/02/2025 3:23 AM EDT [facility] Lymphocytes Absolute 0.96(L) 1.20 - 3.90 10*3/uL LAB HEMATOLOGY METHOD 05/02/2025 3:23 AM EDT [facility] Monocytes Absolute 0.62 0.30 - 0.90 10*3/uL LAB HEMATOLOGY METHOD 05/02/2025 3:23 AM EDT [facility] Eosinophils Absolute 0.30 0.00 - 0.50 10*3/uL LAB HEMATOLOGY METHOD 05/02/2025 3:23 AM EDT [facility] Basophils Absolute 0.01 0.00 - 0.10 10*3/uL LAB HEMATOLOGY METHOD 05/02/2025 3:23 AM EDT [facility] Immature Granulocytes Absolute 0.05 0.00 - 0.06 10*3/uL LAB HEMATOLOGY METHOD 05/02/2025 3:23 AM EDT [facility] Blood Venous blood specimen / Unknown Venipuncture / Unknown 05/02/2025 3:10 AM EDT 05/02/2025 3:14 AM EDT Narrative [facility] - 05/02/2025 3:23 AM EDT Therapeutic decision making should be based on absolute values, rather than percentages. us Marjorie Myers MD LAB BLOOD ORDERABLES Final Resul t [facility] [address] [place] [address] * (ABNORMAL) Basic Metabolic Panel, Plasma (05/02/2025 3:10 AM EDT) Glucose, Plasma 358(H) 74 - 99 mg/dL 05/02/2025 3:45 AM EDT [facility] BUN, Plasma 12 7 - 21 mg/dL 05/02/2025 3:45 AM EDT [facility] Creatinine, Plasma 0.73 0.70 - 1.20 mg/dL 05/02/2025 3:45 AM EDT [facility] BUN/Creatinine Ratio 16 05/02/2025 3:45 AM EDT [facility] Sodium, Plasma 134(L) 136 - 145 mmol/L 05/02/2025 3:45 AM EDT [facility] Potassium, Plasma 3.3(L) 3.6 - 4.9 mmol/L 05/02/2025 3:45 AM EDT [facility] Chloride, Plasma 90(L) 97 - 107 mmol/L 05/02/2025 3:45 AM EDT [facility] CO2, Plasma 37(H) 22 - 29 mmol/L 05/02/2025 3:45 AM EDT [facility] Anion Gap 7 6 - 16 mmol/L 05/02/2025 3:45 AM EDT [facility] Total Calcium, Plasma 8.7(L) 8.9 - 10.2 mg/dL 05/02/2025 3:45 AM EDT [facility] eGFRcr 112.9 mL/min/1.7 3m*2 05/02/2025 3:45 AM EDT [facility] Comment:Reported eGFRcr in m L/min/1.73m2 is based the CKD-EPI 2020 equation that does not use a race coefficient. Blood Venous blood specimen / Unknown Venipuncture / Unknown 05/02/2025 3:10 AM EDT 05/02/2025 3:15 AM EDT us Marjorie Myers MD LAB BLOOD ORDERABLES Final Resul t Performing Organization Address City/[facility]/ZIP Co de Phone Number [facility] [address] [place] [address] * (ABNORMAL) Magnesium, Plasma (05/02/2025 3:10 AM EDT) Magnesium, Plasma 1.6(L) 1.9 - 2.4 mg/dL 05/02/2025 3:45 AM EDT [facility] Blood Venous blood specimen / Unknown Venipuncture / Unknown 05/02/2025 3:10 AM EDT 05/02/2025 3:15 AM EDT us Marjorie Myers MD LAB BLOOD ORDERABLES Final Resul t [facility] [address] [place] [address] * Phosphorus, Plasma (05/02/2025 3:10 AM EDT) Phosphorus, Plasma 3.0 2.5 - 4.5 mg/dL 05/02/2025 3:45 AM EDT [facility] Blood Venous blood specimen / Unknown Venipuncture / Unknown 05/02/2025 3:10 AM EDT 05/02/2025 3:15 AM EDT us Marjorie Myers MD LAB BLOOD ORDERABLES Final Resul t Performing Organization Address City/[facility]/ZIP Co de Phone Number [facility] [address] [place] [address] * Creatine Kinase (CK), Total (05/02/2025 3:10 AM EDT) Pathologist [facility] Creatine Kinase, Plasma 50 49 - 320 U/L 05/02/2025 3:45 AM EDT [facility] Blood Venous blood specimen / Unknown Venipuncture / Unknown 05/02/2025 3:10 AM EDT 05/02/2025 3:15 AM EDT us Marjorie Myers MD LAB BLOOD ORDERABLES Final Resul t Performing Organization Address [facility] de Phone Number [facility] [address] [place] [address] * (ABNORMAL) POCT glucose meter (05/01/2025 8:26 PM EDT) [facility] POCT Glucose 316(H) 74 - 99 mg/dL [...] for testing. Comment 05/01/2025 8:27 PM EDT [facility] Wing Commander ID Stella Coleman 05/01/20 8:27 PM EDT HEALTH[facility]ARE LAB Device ID [id number] 05/01/2025 8:27 PM EDT [facility]ARE LAB Specimen Type POC Capillary 05/01/2025 8:27 PM EDT [facility] Blood Capillary blood specimen / Unknown 05/01/2025 8:26 PM EDT 05/01/2025 8:27 PM EDT us Marjorie Myers MD LAB POINT OF CARE TE ST DOCKED DEVICE UNSOLICITED RESULTS Final Result Performing Organization Address City/[facility]/ZIP Co de Phone Number [facility] [address] [place] [address] * (ABNORMAL) POCT glucose meter (05/01/2025 5:55 PM EDT) [facility] POCT Glucose 294(H) 74 - 99 mg/dL [...] Comment 05/01/2025 5:57 PM EDT [facility] Wing Commander ID Sebastián Kenny 5:57 PM EDT [facility] Device ID [id number] 05/01/2025 5:57 PM EDT [facility] Specimen Type POC Capillary 05/01/2025 5:57 PM EDT [facility] Blood Capillary blood specimen / Unknown 05/01/2025 5:55 PM EDT 05/01/2025 5:57 PM EDT Marjorie Myers MD LAB POINT OF CARE TE ST DOCKED DEVICE UNSOLICITED RESULTS Final Result Performing Organization Address City/[facility]/ZIP Co de Phone Number [facility] [address] [place] [address] * (ABNORMAL) POCT glucose meter (05/01/2025 11:51 AM EDT) [facility] POCT Glucose 301(H) 74 - 99 mg/dL [...] 05/01/2025 11:53 AM EDT [facility] Wing Commander ID Sebastián Kenny 11:53 AM EDT HEALTH[facility]ARE LAB Device ID [id number] 05/01/2025 11:53 AM EDT [facility] Specimen Type POC Capillary 05/01/2025 11:53 AM EDT [facility] Blood Capillary blood specimen / Unknown 05/01/2025 11:51 AM EDT 05/01/2025 11:53 AM EDT Marjorie Myers MD LAB POINT OF CARE TE ST DOCKED DEVICE UNSOLICITED RESULTS Final Result Performing Organization Address City/[facility]/ZIP Co de Phone Number [facility] [address] [place] [address] * (ABNORMAL) POCT glucose meter (05/01/2025 9:13 AM EDT) Pathologist [facility] POCT Glucose 252(H) 74 - 99 mg/dL 05/01/2025 9:15 AM EDT [facility] Comment:Accuracy of [...] Comment 05/01/2025 9:15 AM EDT [facility]ALTH[facility]ARE LAB Wing Commander ID Francisco Javier Martin 05/01/2025 9:15 AM EDT HEALTHCARE LAB Device ID [id number] 05/01/2025 9:15 AM EDT [facility] Specimen Type POC Capillary 05/01/2025 9:15 AM EDT [facility] Blood Capillary blood specimen / Unknown 05/01/2025 9:13 AM EDT 05/01/2025 9:15 AM EDT Marjorie Myers MD LAB POINT OF CARE TE ST DOCKED DEVICE UNSOLICITED RESULTS Final Result [facility] [address] [place] [address] * Surgical Pathology Exam (05/01/2025 8:13 AM EDT) Case Report Surgical Pathology Case: [id number] Authorizing Provider: Mary Vicente MD Collected: 05/01/2025 0813 Ordering Location: [facility] A OPERATING ROOM Received: 05/01/2025 09 Pathologist: Vidya Ly MD Specimens: A) - Toe, Right, R 5th toe B) - Toe, Right, R 5th toe margin 05/09/2025 9:56 AM EDT [facility] Correction History Case amended to provide diagnosis after final decal sections received 05/09/2025 9:56 AM EDT [facility] Comment:These results have b een appended to a previously final verified report. Final Diagnosis A. RIGHT FIFTH TOE, AMPUTATION: - ULCER WITH SUPPURATIVE INFLAMMATION, GANGRENOUS NECROSIS, AND UNDERLYING ACUTE OSTEOMYELITIS. B. RIGHT FIFTH TOE MARGIN, RESECTION: - NO ACUTE OSTEOMYELITIS IDENTIFIED. 05/09/2025 9:56 AM EDT [facility] Amendment electronically signed by Vidya Ly MD on 05/09/2025 at 0956 EDT at 1233 EDT Comment:Corrected result: Pr eviously reported as [Previous value contains rich text formatting which cannot be displayed here] (see Result History) on 05/05/2025 at 1233 EDT. Clinical Information Other chronic osteomyelitis of right foot ([facility]) [M86.671] 05/09/2025 9:56 AM EDT [facility] Gross Description A. R 5TH TOE [...] The wound extends into the underlying bone. [employer] sections are submitted as follows: A1-A2: Necrotic lateral skin A3: Bone underlying gaping wound, following decalcification A4: Bone margin, following decalcification BLAS [facility] B. R 5TH TOE MARGIN The specimen is received fresh and placed in formalin, labeled R 5th toe MARGIN , and consists of a 2.8 x 2.8 x 0.6 cm aggregate of hemorrhagic bony fragments. The specimen is entirely submitted in cassette B1, following decalcification. Cold Time: 25m BLAS Kwok ([facility]) 05/09/2025 9:56 AM EDT [facility] Note: 05/09/2025 9:56 AM EDT [facility] Comment:Corrected result: Pr eviously reported as [...] LAB PATHOLOGY ORDERABLES Edited Result - Final [facility] [address] [place] [address] * Type and Screen (05/01/2025 6:49 AM EDT) ABO/Rh O Positive 05/01/2025 6:53 AM EDT BLOOD BANK Antibody Screen Negative 05/01/2025 6:53 AM EDT BLOOD BANK Specimen Expiration 05/04/2025 23:59 05/01/2025 6:53 AM EDT BLOOD [facility]ANK Blood Venous blood specimen / Unknown Venipuncture / Unknown 05/01/2025 6:49 AM EDT 05/01/2025 6:53 AM EDT us Yanna Calhoun DO LAB BLOOD BANK TEST ORDERA BLES Final Result BLOOD BANK [address] [place] [address], * (ABNORMAL) POCT glucose meter (05/01/2025 6:48 AM EDT) [facility] POCT Glucose 222(H) 74 - 99 mg/dL 05/01/2025 6:50 AM EDT [facility] Comment:Accuracy of [...] for testing. Comment 05/01/2025 6:50 AM EDT HEALTHCARE LAB Wing Commander ID Emelina Romero 6:50 AM EDT HEALTHCARE LAB Device ID [id number] 05/01/2025 6:50 AM EDT [facility]ALTHCARE LAB Specimen Type POC Venous 05/01/2025 6:50 AM EDT [facility] Blood Venous blood specimen / Unknown 05/01/2025 6:48 AM EDT 05/01/2025 6:50 AM EDT Marjorie Myers MD LAB POINT OF CARE TE ST DOCKED DEVICE UNSOLICITED RESULTS Final Result Performing Organization Address [facility] Co de Phone Number [facility]ALTH[facility]ARE [facility] [address] [place] [address] * Creatine Kinase (CK), Total (05/01/2025 2:14 AM EDT) [facility] Creatine Kinase, Plasma 60 49 - 320 U/L 05/01/2025 2:53 AM EDT [facility] Blood Venous blood specimen / Unknown Venipuncture / Unknown 05/01/2025 2:14 AM EDT 05/01/2025 2:26 AM EDT us Marjorie Myers MD LAB BLOOD ORDERABLES Final Resul t Performing Organization Address City/[facility] Co de Phone Number [facility] [address] [place] [address] * (ABNORMAL) CBC and Differential (05/01/2025 2:14 AM EDT) WBC Count 6.96 3.70 - 10.30 10*3/uL LAB HEMATOLOGY METHOD 05/01/2025 2:37 AM EDT [facility] RBC Count 4.23(L) 4.60 - 6.10 10*6/uL LAB HEMATOLOGY METHOD 05/01/2025 2:37 AM EDT [facility] HGB 9.8(L) 13.7 - 17.5 g/dL LAB HEMATOLOGY METHOD 05/01/2025 2:37 AM EDT [facility] HCT 32.5(L) 40.0 - 51.0 % LAB HEMATOLOGY METHOD 05/01/2025 2:37 AM EDT [facility] Platelet Count 218 155 - 369 10*3/uL LAB HEMATOLOGY METHOD 05/01/2025 2:37 AM EDT [facility] MCV 77(L) 79 - 98 fL LAB HEMATOLOGY METHOD 05/01/2025 2:37 AM EDT [facility] MCH 23.2(L) 26.0 - 32.0 pg LAB HEMATOLOGY METHOD 05/01/2025 2:37 AM EDT [facility] MCHC 30.2(L) 30.7 - 35.5 g/dL LAB HEMATOLOGY METHOD 05/01/2025 2:37 AM EDT [facility] RDW 19.1(H) 11.5 - 14.5 % LAB HEMATOLOGY METHOD 05/01/2025 2:37 AM EDT [facility] MPV 8.4(L) 8.8 - 12.5 fL LAB HEMATOLOGY METHOD 05/01/2025 2:37 AM EDT [facility] nRBC 0.0 <=0.0 per 100 WBCs LAB HEMATOLOGY METHOD 05/01/2025 2:37 AM EDT [facility] Differential Type Automated LAB HEMATOLOGY METHOD 05/01/2025 2:37 AM EDT [facility] Neutrophils % 76 % LAB HEMATOLOGY METHOD 05/01/2025 2:37 AM EDT [facility] Lymphocytes % 11 % LAB HEMATOLOGY METHOD 05/01/2025 2:37 AM EDT [facility] Monocytes % 8 % LAB HEMATOLOGY METHOD 05/01/2025 2:37 AM EDT [facility] Eosinophils % 4 % LAB HEMATOLOGY METHOD 05/01/2025 2:37 AM EDT [facility] Basophils % 0 % LAB HEMATOLOGY METHOD 05/01/2025 2:37 AM EDT [facility] Immature Granulocytes % 1 % LAB HEMATOLOGY METHOD 05/01/2025 2:37 AM EDT [facility] Neutrophils Absolute 5.26 1.60 - 6.10 10*3/uL LAB HEMATOLOGY METHOD 05/01/2025 2:37 AM EDT [facility] Lymphocytes Absolute 0.79(L) 1.20 - 3.90 10*3/uL LAB HEMATOLOGY METHOD 05/01/2025 2:37 AM EDT [facility] Monocytes Absolute 0.57 0.30 - 0.90 10*3/uL LAB HEMATOLOGY METHOD 05/01/2025 2:37 AM EDT [facility] Eosinophils Absolute 0.28 0.00 - 0.50 10*3/uL LAB HEMATOLOGY METHOD 05/01/2025 2:37 AM EDT [facility] Basophils Absolute 0.02 0.00 - 0.10 10*3/uL LAB HEMATOLOGY METHOD 05/01/2025 2:37 AM EDT [facility] Immature Granulocytes Absolute 0.04 0.00 - 0.06 10*3/uL LAB HEMATOLOGY METHOD 05/01/2025 2:37 AM EDT [facility] Blood Venous blood specimen / Unknown Venipuncture / Unknown 05/01/2025 2:14 AM EDT 05/01/2025 2:26 AM EDT Narrative [facility] - 05/01/2025 2:37 AM EDT Therapeutic decision making should be based on absolute values, rather than percentages. us Marjorie Myers MD LAB BLOOD ORDERABLES Final Resul t [facility] [address] [place] [address] * (ABNORMAL) Basic Metabolic Panel, Plasma (05/01/2025 2:14 AM EDT) Glucose, Plasma 266(H) 74 - 99 mg/dL 05/01/2025 2:53 AM EDT [facility] BUN, Plasma 9 7 - 21 mg/dL 05/01/2025 2:53 AM EDT [facility] Creatinine, Plasma 0.71 0.70 - 1.20 mg/dL 05/01/2025 2:53 AM EDT [facility] BUN/Creatinine Ratio 13 05/01/2025 2:53 AM EDT [facility] Sodium, Plasma 137 136 - 145 mmol/L 05/01/2025 2:53 AM EDT [facility] Potassium, Plasma 3.4(L) 3.6 - 4.9 mmol/L 05/01/2025 2:53 AM EDT [facility] Chloride, Plasma 91(L) 97 - 107 mmol/L 05/01/2025 2:53 AM EDT [facility] CO2, Plasma 36(H) 22 - 29 mmol/L 05/01/2025 2:53 AM EDT [facility] Anion Gap 10 6 - 16 mmol/L 05/01/2025 2:53 AM EDT [facility] Total Calcium, Plasma 8.6(L) 8.9 - 10.2 mg/dL 05/01/2025 2:53 AM EDT [facility] eGFRcr 113.9 mL/min/1.7 3m*2 05/01/2025 2:53 AM EDT [facility] Comment:Reported eGFRcr in m L/min/1.73m2 is based the CKD-EPI 2020 equation that does not use a race coefficient. Blood Venous blood specimen / Unknown Venipuncture / Unknown 05/01/2025 2:14 AM EDT 05/01/2025 2:26 AM EDT us Marjorie Myers MD LAB BLOOD ORDERABLES Final Resul t [facility] [address] [place] [address] * (ABNORMAL) Magnesium, Plasma (05/01/2025 2:14 AM EDT) Magnesium, Plasma 1.8(L) 1.9 - 2.4 mg/dL 05/01/2025 2:53 AM EDT [facility] Blood Venous blood specimen / Unknown Venipuncture / Unknown 05/01/2025 2:14 AM EDT 05/01/2025 2:26 AM EDT us Marjorie Myers MD LAB BLOOD ORDERABLES Final Resul t Performing Organization Address [facility]/ZIP Co de Phone Number [facility] [address] [place] [address] * Phosphorus, Plasma (05/01/2025 2:14 AM EDT) [facility] Phosphorus, Plasma 3.0 2.5 - 4.5 mg/dL 05/01/2025 2:53 AM EDT [facility] Blood Venous blood specimen / Unknown Venipuncture / Unknown 05/01/2025 2:14 AM EDT 05/01/2025 2:26 AM EDT us Marjorie Myers MD LAB BLOOD ORDERABLES Final Resul t Performing Organization Address City/[facility] [place] [address] * (ABNORMAL) POCT glucose meter (04/30/2025 8:21 PM EDT) [facility] POCT Glucose 226(H) 74 - 99 mg/dL [...] for testing. Comment 04/30/2025 8:23 PM EDT [facility] Wing Commander ID Sandra Perez 04/30/20 8:23 PM EDT [facility] Device ID [id number] 04/30/2025 8:23 PM EDT [facility] Specimen Type POC Capillary 04/30/2025 8:23 PM EDT [facility] Blood Capillary blood specimen / Unknown 04/30/2025 8:21 PM EDT 04/30/2025 8:23 PM EDT Marjorie Myers MD LAB POINT OF CARE TE ST DOCKED DEVICE UNSOLICITED RESULTS Final Result Performing Organization Address [facility] de Phone Number [facility] [address] [place] [address] * (ABNORMAL) POCT glucose meter (04/30/2025 4:19 PM EDT) Pathologist [facility] POCT Glucose 173(H) 74 - 99 mg/dL [...] for testing. Comment 04/30/2025 4:54 PM EDT [facility] Wing Commander ID Priyanka Negrete 04/30/20 4:54 PM EDT [facility] Device ID [id number] 04/30/2025 4:54 PM EDT [facility] Specimen Type POC Capillary 04/30/2025 4:54 PM EDT [facility] Blood Capillary blood specimen / Unknown 04/30/2025 4:19 PM EDT 04/30/2025 4:54 PM EDT Marjorie Myers MD LAB POINT OF CARE TE ST DOCKED DEVICE UNSOLICITED RESULTS Final Result Performing Organization Address City/[facility] Co de Phone Number [facility] [address] [place] [address] * (ABNORMAL) POCT glucose meter (04/30/2025 12:11 PM EDT) Pathologist [facility] POCT Glucose 226(H) 74 - 99 mg/dL [...] for testing. Comment 04/30/2025 12:50 PM EDT [facility] Wing Commander ID Priyanka Negrete 04/30/20 12:50 PM EDT [facility] Device ID [id number] 04/30/2025 12:50 PM EDT [facility] Specimen Type POC Capillary 04/30/2025 12:50 PM EDT [facility] Blood Capillary blood specimen / Unknown 04/30/2025 12:11 PM EDT 04/30/2025 12:50 PM EDT us Marjorie Myers MD LAB POINT OF CARE TE ST DOCKED DEVICE UNSOLICITED RESULTS Final Result Performing Organization Address [facility] de Phone Number [facility] [address] [place] [address] * (ABNORMAL) POCT glucose meter (04/30/2025 8:18 AM EDT) POCT Glucose 212(H) 74 - 99 mg/dL 04/30/2025 8:55 AM EDT [facility] Comment:Accuracy of [...] for testing. Comment 04/30/2025 8:55 AM EDT [facility] Wing Commander ID Priyanka Negrete 04/30/20 8:55 AM EDT [facility] Device ID [id number] 04/30/2025 8:55 AM EDT [facility] Specimen Type POC Capillary 04/30/2025 8:55 AM EDT [facility] Blood Capillary blood specimen / Unknown 04/30/2025 8:18 AM EDT 04/30/2025 8:55 AM EDT us Marjorie Myers MD LAB POINT OF CARE TE ST DOCKED DEVICE UNSOLICITED RESULTS Final Result Performing Organization Address City/[facility] Co de Phone Number [facility] [address] [place] [address] * (ABNORMAL) CBC and Differential (04/30/2025 3:19 AM EDT) [facility] Signature WBC Count 8.84 3.70 - 10.30 10*3/uL LAB HEMATOLOGY METHOD 04/30/2025 3:35 AM EDT [facility] RBC Count 4.31(L) 4.60 - 6.10 10*6/uL LAB HEMATOLOGY METHOD 04/30/2025 3:35 AM EDT [facility] HGB 9.6(L) 13.7 - 17.5 g/dL LAB HEMATOLOGY METHOD 04/30/2025 3:35 AM EDT [facility] HCT 32.6(L) 40.0 - 51.0 % LAB HEMATOLOGY METHOD 04/30/2025 3:35 AM EDT [facility] Platelet Count 245 155 - 369 10*3/uL LAB HEMATOLOGY METHOD 04/30/2025 3:35 AM EDT [facility] MCV 76(L) 79 - 98 fL LAB HEMATOLOGY METHOD 04/30/2025 3:35 AM EDT [facility] MCH 22.3(L) 26.0 - 32.0 pg LAB HEMATOLOGY METHOD 04/30/2025 3:35 AM EDT [facility] MCHC 29.4(L) 30.7 - 35.5 g/dL LAB HEMATOLOGY METHOD 04/30/2025 3:35 AM EDT [facility] RDW 19.1(H) 11.5 - 14.5 % LAB HEMATOLOGY METHOD 04/30/2025 3:35 AM EDT [facility] MPV 8.5(L) 8.8 - 12.5 fL LAB HEMATOLOGY METHOD 04/30/2025 3:35 AM EDT [facility] nRBC 0.0 <=0.0 per 100 WBCs LAB HEMATOLOGY METHOD 04/30/2025 3:35 AM EDT [facility] Differential Type Automated LAB HEMATOLOGY METHOD 04/30/2025 3:35 AM EDT [facility] Neutrophils % 78 % LAB HEMATOLOGY METHOD 04/30/2025 3:35 AM EDT [facility] Lymphocytes % 11 % LAB HEMATOLOGY METHOD 04/30/2025 3:35 AM EDT [facility] Monocytes % 7 % LAB HEMATOLOGY METHOD 04/30/2025 3:35 AM EDT [facility] Eosinophils % 3 % LAB HEMATOLOGY METHOD 04/30/2025 3:35 AM EDT [facility] Basophils % 0 % LAB HEMATOLOGY METHOD 04/30/2025 3:35 AM EDT [facility] Immature Granulocytes % 1 % LAB HEMATOLOGY METHOD 04/30/2025 3:35 AM EDT [facility] Neutrophils Absolute 6.90(H) 1.60 - 6.10 10*3/uL LAB HEMATOLOGY METHOD 04/30/2025 3:35 AM EDT [facility] Lymphocytes Absolute 0.95(L) 1.20 - 3.90 10*3/uL LAB HEMATOLOGY METHOD 04/30/2025 3:35 AM EDT [facility] Monocytes Absolute 0.64 0.30 - 0.90 10*3/uL LAB HEMATOLOGY METHOD 04/30/2025 3:35 AM EDT [facility] Eosinophils Absolute 0.29 0.00 - 0.50 10*3/uL LAB HEMATOLOGY METHOD 04/30/2025 3:35 AM EDT [facility] Basophils Absolute 0.02 0.00 - 0.10 10*3/uL LAB HEMATOLOGY METHOD 04/30/2025 3:35 AM EDT [facility] Immature Granulocytes Absolute 0.04 0.00 - 0.06 10*3/uL LAB HEMATOLOGY METHOD 04/30/2025 3:35 AM EDT [facility] Blood Venous blood specimen / Unknown Venipuncture / Unknown 04/30/2025 3:19 AM EDT 04/30/2025 3:26 AM EDT [facility] - 04/30/2025 3:35 AM EDT Therapeutic decision making should be based on absolute values, rather than percentages. us Marjorie Myers MD LAB BLOOD ORDERABLES Final Resul t [facility] [address] [place] [address] * (ABNORMAL) Basic Metabolic Panel, Plasma (04/30/2025 3:19 AM EDT) Pathologist [facility] Glucose, Plasma 254(H) 74 - 99 mg/dL 04/30/2025 3:56 AM EDT [facility] BUN, Plasma 11 7 - 21 mg/dL 04/30/2025 3:56 AM EDT [facility] Creatinine, Plasma 0.77 0.70 - 1.20 mg/dL 04/30/2025 3:56 AM EDT [facility] BUN/Creatinine Ratio 14 04/30/2025 3:56 AM EDT [facility] Sodium, Plasma 137 136 - 145 mmol/L 04/30/2025 3:56 AM EDT [facility] Potassium, Plasma 3.3(L) 3.6 - 4.9 mmol/L 04/30/2025 3:56 AM EDT [facility] Chloride, Plasma 91(L) 97 - 107 mmol/L 04/30/2025 3:56 AM EDT [facility] CO2, Plasma 36(H) 22 - 29 mmol/L 04/30/2025 3:56 AM EDT [facility] Anion Gap 10 6 - 16 mmol/L 04/30/2025 3:56 AM EDT [facility] Total Calcium, Plasma 8.7(L) 8.9 - 10.2 mg/dL 04/30/2025 3:56 AM EDT [facility] eGFRcr 111.1 mL/min/1.7 3m*2 04/30/2025 3:56 AM EDT [facility] Comment:Reported eGFRcr in m L/min/1.73m2 is based the CKD-EPI 2020 equation that does not use a race coefficient. Blood Venous blood specimen / Unknown Venipuncture / Unknown 04/30/2025 3:19 AM EDT 04/30/2025 3:26 AM EDT us Marjorie Myers MD LAB BLOOD ORDERABLES Final Resul t [facility] [address] [place] [address] * (ABNORMAL) Magnesium, Plasma (04/30/2025 3:19 AM EDT) Magnesium, Plasma 1.5(L) 1.9 - 2.4 mg/dL 04/30/2025 3:56 AM EDT [facility] Blood Venous blood specimen / Unknown Venipuncture / Unknown 04/30/2025 3:19 AM EDT 04/30/2025 3:26 AM EDT us Marjorie Myers MD LAB BLOOD ORDERABLES Final Resul t Performing Organization Address City/[facility]/ZIP Co de Phone Number [facility] [address] [place] [address] * Phosphorus, Plasma (04/30/2025 3:19 AM EDT) Pathologist [facility] Phosphorus, Plasma 2.7 2.5 - 4.5 mg/dL 04/30/2025 3:56 AM EDT [facility] Blood Venous blood specimen / Unknown Venipuncture / Unknown 04/30/2025 3:19 AM EDT 04/30/2025 3:26 AM EDT us Marjorie Myers MD LAB BLOOD ORDERABLES Final Resul t Performing Organization Address City/[facility] [place] [address] * (ABNORMAL) POCT glucose meter (04/29/2025 7:38 PM EDT) Pathologist [facility] POCT Glucose 191(H) 74 - 99 mg/dL [...] for testing. Comment 04/29/2025 9:20 PM EDT [facility] Wing Commander ID Ervin Du V 025 9:20 PM EDT [facility] Device ID [id number] 04/29/2025 9:20 PM EDT [facility] Specimen Type POC Capillary 04/29/2025 9:20 PM EDT [facility] Blood Capillary blood specimen / Unknown 04/29/2025 7:38 PM EDT 04/29/2025 9:20 PM EDT Marjorie Myers MD LAB POINT OF CARE TE ST DOCKED DEVICE UNSOLICITED RESULTS Final Result Performing Organization Address City/[facility] Co de Phone Number [facility] [address] [place] [address] * (ABNORMAL) POCT glucose meter (04/29/2025 5:21 [...] Comment 04/29/2025 5:23 PM EDT [facility] Wing Commander ID Rocio Dozier 04/29/20 5:23 PM EDT [facility] LAB Device ID [id number] 04/29/2025 5:23 PM EDT [facility] Specimen Type POC Capillary 04/29/2025 5:23 PM EDT [facility] Blood Capillary blood specimen / Unknown 04/29/2025 5:21 PM EDT 04/29/2025 5:23 PM EDT Marjorie Myers MD LAB POINT OF CARE TE ST DOCKED DEVICE UNSOLICITED RESULTS Final Result Performing Organization Address City/[facility]/ZIP Co de Phone Number [facility] [address] [place] [address] * (ABNORMAL) POCT glucose meter (04/29/2025 11:15 AM EDT) POCT Glucose 204(H) 74 - 99 mg/dL [...] Comment 04/29/2025 11:17 AM EDT [facility] Wing Commander ID Rocio Dozier 04/29/20 11:17 AM EDT [facility] LAB Device ID [id number] 04/29/2025 11:17 AM EDT [facility] Specimen Type POC Capillary 04/29/2025 11:17 AM EDT [facility] Blood Capillary blood specimen / Unknown 04/29/2025 11:15 AM EDT 04/29/2025 11:17 AM EDT us Marjorie Meyrs MD LAB POINT OF CARE TE ST DOCKED DEVICE UNSOLICITED RESULTS Final Result Performing Organization Address City/State/[facility] Co de Phone Number [facility] [address] [place] [address] * (ABNORMAL) POCT glucose meter (04/29/2025 7:13 AM EDT) [facility] POCT Glucose 269(H) 74 - 99 mg/dL [...] Comment 04/29/2025 7:14 AM EDT [facility] Wing Commander ID Rocio Dozier 04/29/20 7:14 AM EDT [facility] LAB Device ID [id number] 04/29/2025 7:14 AM EDT [facility] Specimen Type POC Capillary 04/29/2025 7:14 AM EDT [facility] Blood Capillary blood specimen / Unknown 04/29/2025 7:13 AM EDT 04/29/2025 7:14 AM EDT us Marjorie Myers MD LAB POINT OF CARE TE ST DOCKED DEVICE UNSOLICITED RESULTS Final Result [facility] [address] [place] [address] * Folate (04/29/2025 3:04 AM EDT) Folate, Serum 10.5 >4.6 ng/mL 04/29/2025 4:05 AM EDT [facility] Blood Venous blood specimen / Unknown Venipuncture / Unknown 04/29/2025 3:04 AM EDT 04/29/2025 3:20 AM EDT us Sy De La Fuente APRN, DENISE LAB BLOOD ORDERABLES Fin al Result Performing Organization Address City/[facility]/ZIP Co de Phone Number [facility] [address] [place] [address] * Vitamin B12 (04/29/2025 3:04 AM EDT) Vitamin B12, Serum 338 210 - 1,033 pg/mL 04/29/2025 4:06 AM EDT [facility] Blood Venous blood specimen / Unknown Venipuncture / Unknown 04/29/2025 3:04 AM EDT 04/29/2025 3:20 AM EDT us Sy De La Fuente APRN, DNP LAB BLOOD ORDERABLES Fin al Result Performing Organization Address City/[facility]/ZIP Co de Phone Number [facility] [address] [place] [address] * (ABNORMAL) Iron & Total Iron Binding Capacity, Plasma (Includes Transferrin) (04/29/2025 3:04 AM EDT) Iron, Plasma 36(L) 50 - 170 ug/dL 04/29/2025 3:55 AM EDT [facility] Transferrin, Plasma 197(L) 200 - 360 mg/dL 04/29/2025 3:55 AM EDT [facility] Total Iron Binding Capacity, Plasma 246 240 - 450 ug/mL 04/29/2025 3:55 AM EDT [facility] Transferrin Saturation 15 14 - 50 % 04/29/2025 3:55 AM EDT [facility] Blood Venous blood specimen / Unknown Venipuncture / Unknown 04/29/2025 3:04 AM EDT 04/29/2025 3:19 AM EDT us Sy De La Fuente APRN, DNP LAB BLOOD ORDERABLES Fin al Result Performing Organization Address [facility]/ZIP Co de Phone Number [facility] [address] [place] [address] * Ferritin (04/29/2025 3:04 AM EDT) Ferritin, Serum 40 20 - 400 ng/mL 04/29/2025 4:06 AM EDT [facility] Blood Venous blood specimen / Unknown Venipuncture / Unknown 04/29/2025 3:04 AM EDT 04/29/2025 3:20 AM EDT us Sy De La Fuente APRN, DENISE LAB BLOOD ORDERABLES Fin al Result Performing Organization Address [facility] de Phone Number [facility] [address] [place] [address] * Cortisol (04/29/2025 3:04 AM EDT) Cortisol 2.80 Before 10am: 3.7 - 19.4. After 5pm: 2.9 - 17.3 ug/dL 04/29/2025 4:22 AM EDT [facility] Comment:Testing performed on [employer], standardized against [employer] Reference Standard concentration values assigned by LC-MS/MS and verified by BCR 192 and BCR 193 certified reference materials. Blood Venous blood specimen / Unknown Venipuncture / Unknown 04/29/2025 3:04 AM EDT 04/29/2025 3:19 AM EDT us Sy De La Fuente APRN, DNP LAB REF LAB BLOOD AND FL UID ORD Final Result Performing Organization Address [facility]/ZIP Co de Phone Number [facility] [address] [place] [address] * TSH (04/29/2025 3:04 AM EDT) Thyroid Stimulating Hormone, Plasma 1.58 0.40 - 4.20 uIU/mL 04/29/2025 3:55 AM EDT [facility] Blood Venous blood specimen / Unknown Venipuncture / Unknown 04/29/2025 3:04 AM EDT 04/29/2025 3:19 AM EDT Sy De La Fuente APRN, DNP LAB BLOOD ORDERABLES Fin al Result Performing Organization Address City/[facility] Co de Phone Number [facility] [address] [place] [address] * (ABNORMAL) Hemoglobin A1c (04/29/2025 3:04 AM EDT) Pathologist [facility] Hemoglobin A1c 8.9(H) <5.7 % 04/29/2025 9:40 AM EDT [facility] Blood Venous blood specimen / Unknown Venipuncture / Unknown 04/29/2025 3:04 AM EDT 04/29/2025 3:19 AM EDT Narrative [facility] - 04/29/2025 9:40 AM EDT HA1C Interpretive Data: Diagnosis of Diabetes: Diabetic > or = 6.5% Pre-diabetic 5.7 to 6.4% Non-diabetic < or = 5.6% Glycemic Targets for Type I and Type II Diabetics: Non- Adults <7.0% Adults <6.0% Children and Adolescents <7.5% Source: [place] [employer]. Standards of medical care in diabetes,2017. Diabetes Care.2017:40 (suppl 1):S1-S135. us Sy De La Fuente APRN, DNP LAB BLOOD ORDERABLES Fin al Result Performing Organization Address City/[facility]/ZIP Co de Phone Number [facility] [address] [place] [address] * Phosphorus (04/29/2025 3:04 AM EDT) Phosphorus, Plasma 3.6 2.5 - 4.5 mg/dL 04/29/2025 3:55 AM EDT [facility] Blood Venous blood specimen / Unknown Venipuncture / Unknown 04/29/2025 3:04 AM EDT 04/29/2025 3:19 AM EDT us Sy De La Fuente APRN, DNP LAB BLOOD ORDERABLES Fin al Result Performing Organization Address [facility] Co de Phone Number [facility] [address] [place] [address] * (ABNORMAL) Magnesium, Plasma (04/29/2025 3:04 AM EDT) Magnesium, Plasma 1.7(L) 1.9 - 2.4 mg/dL 04/29/2025 3:55 AM EDT [facility] Blood Venous blood specimen / Unknown Venipuncture / Unknown 04/29/2025 3:04 AM EDT 04/29/2025 3:19 AM EDT us Sy De La Fuente APRN, DENISE LAB BLOOD ORDERABLES Fin al Result Performing Organization Address [facility] Phone Number [facility] [address] [place] [address] * (ABNORMAL) Comprehensive metabolic panel (04/29/2025 3:04 AM EDT) Glucose, Plasma 219(H) 74 - 99 mg/dL 04/29/2025 3:55 AM EDT [facility] BUN, Plasma 9 7 - 21 mg/dL 04/29/2025 3:55 AM EDT [facility] Creatinine, Plasma 0.94 0.70 - 1.20 mg/dL 04/29/2025 3:55 AM EDT [facility] BUN/Creatinine Ratio 10 04/29/2025 3:55 AM EDT [facility] Sodium, Plasma 137 136 - 145 mmol/L 04/29/2025 3:55 AM EDT [facility] Potassium, Plasma 3.1(L) 3.6 - 4.9 mmol/L 04/29/2025 3:55 AM EDT [facility] Chloride, Plasma 92(L) 97 - 107 mmol/L 04/29/2025 3:55 AM EDT [facility] CO2, Plasma 38(H) 22 - 29 mmol/L 04/29/2025 3:55 AM EDT [facility] Anion Gap 7 6 - 16 mmol/L 04/29/2025 3:55 AM EDT [facility] Total Calcium, Plasma 8.6(L) 8.9 - 10.2 mg/dL 04/29/2025 3:55 AM EDT [facility] Total Protein 7.4 6.3 - 7.9 g/dL 04/29/2025 3:55 AM EDT [facility] Albumin, Plasma 3.3(L) 3.5 - 5.2 g/dL 04/29/2025 3:55 AM EDT [facility] AST, Plasma 18 10 - 50 U/L 04/29/2025 3:55 AM EDT [facility] ALT, Plasma 11 10 - 50 U/L 04/29/2025 3:55 AM EDT [facility] Alkaline Phosphatase, Plasma 55 40 - 115 U/L 04/29/2025 3:55 AM EDT [facility] Total Bilirubin, Plasma 0.8 0.2 - 1.1 mg/dL 04/29/2025 3:55 AM EDT [facility] eGFRcr 100.6 mL/min/1.7 3m*2 04/29/2025 3:55 AM EDT [facility] Comment:Reported eGFRcr in m L/min/1.73m2 is based the CKD-EPI 2020 equation that does not use a race coefficient. Blood Venous blood specimen / Unknown Venipuncture / Unknown 04/29/2025 3:04 AM EDT 04/29/2025 3:19 AM EDT us Sy De La Fuente KEYBOARD SPECIALIST, DNP LAB BLOOD ORDERABLES Fin al Result [facility] [address] [place] [address] * (ABNORMAL) CBC and Differential (04/29/2025 3:04 AM EDT) WBC Count 6.68 3.70 - 10.30 10*3/uL LAB HEMATOLOGY METHOD 04/29/2025 3:16 AM EDT [facility] RBC Count 4.21(L) 4.60 - 6.10 10*6/uL LAB HEMATOLOGY METHOD 04/29/2025 3:16 AM EDT [facility] HGB 9.4(L) 13.7 - 17.5 g/dL LAB HEMATOLOGY METHOD 04/29/2025 3:16 AM EDT [facility] HCT 32.0(L) 40.0 - 51.0 % LAB HEMATOLOGY METHOD 04/29/2025 3:16 AM EDT [facility] Platelet Count 249 155 - 369 10*3/uL LAB HEMATOLOGY METHOD 04/29/2025 3:16 AM EDT [facility] MCV 76(L) 79 - 98 fL LAB HEMATOLOGY METHOD 04/29/2025 3:16 AM EDT [facility] MCH 22.3(L) 26.0 - 32.0 pg LAB HEMATOLOGY METHOD 04/29/2025 3:16 AM EDT [facility] MCHC 29.4(L) 30.7 - 35.5 g/dL LAB HEMATOLOGY METHOD 04/29/2025 3:16 AM EDT [facility] RDW 19.6(H) 11.5 - 14.5 % LAB HEMATOLOGY METHOD 04/29/2025 3:16 AM EDT [facility] MPV 8.4(L) 8.8 - 12.5 fL LAB HEMATOLOGY METHOD 04/29/2025 3:16 AM EDT [facility] nRBC 0.0 <=0.0 per 100 WBCs LAB HEMATOLOGY METHOD 04/29/2025 3:16 AM EDT [facility] Differential Type Automated LAB HEMATOLOGY METHOD 04/29/2025 3:16 AM EDT [facility] Neutrophils % 75 % LAB HEMATOLOGY METHOD 04/29/2025 3:16 AM EDT [facility] Lymphocytes % 11 % LAB HEMATOLOGY METHOD 04/29/2025 3:16 AM EDT [facility] Monocytes % 9 % LAB HEMATOLOGY METHOD 04/29/2025 3:16 AM EDT [facility] Eosinophils % 4 % LAB HEMATOLOGY METHOD 04/29/2025 3:16 AM EDT [facility] Basophils % 0 % LAB HEMATOLOGY METHOD 04/29/2025 3:16 AM EDT [facility] Immature Granulocytes % 1 % LAB HEMATOLOGY METHOD 04/29/2025 3:16 AM EDT [facility] Neutrophils Absolute 5.01 1.60 - 6.10 10*3/uL LAB HEMATOLOGY METHOD 04/29/2025 3:16 AM EDT [facility] Lymphocytes Absolute 0.75(L) 1.20 - 3.90 10*3/uL LAB HEMATOLOGY METHOD 04/29/2025 3:16 AM EDT [facility] Monocytes Absolute 0.59 0.30 - 0.90 10*3/uL LAB HEMATOLOGY METHOD 04/29/2025 3:16 AM EDT [facility] Eosinophils Absolute 0.26 0.00 - 0.50 10*3/uL LAB HEMATOLOGY METHOD 04/29/2025 3:16 AM EDT [facility] Basophils Absolute 0.03 0.00 - 0.10 10*3/uL LAB HEMATOLOGY METHOD 04/29/2025 3:16 AM EDT [facility] Immature Granulocytes Absolute 0.04 0.00 - 0.06 10*3/uL LAB HEMATOLOGY METHOD 04/29/2025 3:16 AM EDT [facility] Blood Venous blood specimen / Unknown Venipuncture / Unknown 04/29/2025 3:04 AM EDT 04/29/2025 3:13 AM EDT Narrative [facility] - 04/29/2025 3:16 AM EDT Therapeutic decision making should be based on absolute values, rather than percentages. Sy De La Fuente KEYBOARD SPECIALIST, DNP LAB BLOOD ORDERABLES Fin al Result [facility] [address] [place] [address] * (ABNORMAL) POCT glucose meter (04/28/2025 9:06 PM EDT) POCT Glucose 212(H) 74 - 99 mg/dL 04/28/2025 9:08 PM EDT [facility] Comment:Accuracy of a glucos e result [...] Comment 04/28/2025 9:08 PM EDT [facility] LAB Wing Commander ID Frankie Poole 04/28/2025 9:08 PM EDT HEALTHCARE LAB Device ID [id number] 04/28/2025 9:08 PM EDT [facility]ALTH[facility] LAB Specimen Type POC Capillary 04/28/2025 9:08 PM EDT [facility] Blood Capillary blood specimen / Unknown 04/28/2025 9:06 PM EDT 04/28/2025 9:08 PM EDT us Marjorie Myers MD LAB POINT OF CARE TE ST DOCKED DEVICE UNSOLICITED RESULTS Final Result Performing Organization Address City/[facility]/ZIP Co de Phone Number [facility] [address] [place] [address] * (ABNORMAL) POCT glucose meter (04/28/2025 5:34 PM EDT) [facility] POCT Glucose 213(H) 74 - 99 mg/dL 04/28/2025 5:38 PM EDT [facility]ALTHCARE LAB Comment:Accuracy of a [...] for testing. Comment 04/28/2025 5:38 PM EDT HEALTHCARE LAB Wing Commander ID Ailyn Finch 5:38 PM EDT HEALTHCARE LAB Device ID [id number] 04/28/2025 5:38 PM EDT [facility]ALTHCARE LAB Specimen Type POC Capillary 04/28/2025 5:38 PM EDT [facility] Blood Capillary blood specimen / Unknown 04/28/2025 5:34 PM EDT 04/28/2025 5:38 PM EDT us Marjorie Myers MD LAB POINT OF CARE TE ST DOCKED DEVICE UNSOLICITED RESULTS Final Result [facility] [address] [place] [address] * (ABNORMAL) POCT glucose meter (04/28/2025 3:51 PM EDT) POCT Glucose 209(H) 74 - 99 mg/dL [...] 04/28/2025 3:54 PM EDT [facility] Wing Commander ID Ailyn Finch 3:54 PM EDT [facility] Device ID [id number] 04/28/2025 3:54 PM EDT [facility] Specimen Type POC Capillary 04/28/2025 3:54 PM EDT [facility] Blood Capillary blood specimen / Unknown 04/28/2025 3:51 PM EDT 04/28/2025 3:54 PM EDT Marjorie Myers MD LAB POINT OF CARE TE ST DOCKED DEVICE UNSOLICITED RESULTS Final Result [facility] [address] [place] [address] * VAS Ankle Brachial Index - GABBI [...] are demonstrated at the levels of the BANQUET LEAD and DPA. Segmental pressures are within normal limits with a BANQUET LEAD GABBI of 1.1 (172 mmHg) and a DPA GABBI of 1.0 (149 mmHg). Digit pressures are of 122 mmHg. Left: Multiphasic waveforms are demonstrated at the levels of the BANQUET LEAD and DPA. Segmental pressures are within normal limits with a BANQUET LEAD GABBI of 1.1 (164 mmHg) and a DPA GABBI of 1.0 (153 mmHg). Digit pressures are of 151 mmHg. Procedure Note Chris Schaefer MD - 04/28/2025 CLINICAL INDICATION: Diabetic foot ulcer TECHNIQUE: Non-invasive, continuous wave Doppler exam with segmental pressures andspectral analysis of the lower extremity was performed. COMPARISON: None. FINDINGS: Right: Multiphasic waveforms are demonstrated at the levels of the BANQUET LEAD andDPA. Segmental pressures are within normal limits with a BANQUET LEAD GABBI of 1.1(172 mmHg) and a DPA GABBI of 1.0 (149 mmHg). Digit pressures are of 122mmHg. Left: Multiphasic waveforms are demonstrated at the levels of the BANQUET LEAD andDPA. Segmental pressures are within normal limits with a BANQUET LEAD GABBI of 1.1(164 mmHg) and a DPA [...] on04/28/2025 4:14 PM Sy De La Fuente APRN, DNP CV VASCULAR PROCEDURES F inal Result * Multi Drug Resistance Test (04/28/2025 1:44 PM EDT) Pathologist [facility] Culture No Multi Drug Resistant Organisms Isolated 04/29/2025 2:32 PM EDT [facility] Swab (Nares and Saba Rectal) Non-blood Collection / Unknown 04/28/2025 1:44 PM EDT 04/28/2025 2:15 PM EDT Narrative [facility] - 04/29/2025 2:32 PM EDT This test was developed and its performance characteristics determined by the [facility]. Although the media is FDA-approved, it is not FDA-approved for all specimen types submitted. The FDA has determined that such clearance or approval is not necessary. This test is used for surveillance purposes. It should not be regarded as investigational or for research. The [facility] is certified under the Clinical Laboratory Improvement Amendments of 1988 (CLIA-88) as qualified to perform high complexity clinical laboratory testing. Sy De La Fuente APRN, DNP LAB MICROBIOLOGY - GENER AL ORDERABLES Final Result Performing Organization Address City/State/[facility] de Phone Number [facility] [address] [place] [address] * (ABNORMAL) POCT glucose meter (04/28/2025 12:52 PM EDT) POCT Glucose 271(H) 74 - 99 mg/dL 04/28/2025 12:56 PM EDT [facility] Comment:Accuracy of a glucos e result [...] Comment 04/28/2025 12:56 PM EDT [facility]ALTHCARE LAB Wing Commander ID Ailyn Finch 12:56 PM EDT HEALTHCARE LAB Device ID [id number] 04/28/2025 12:56 PM EDT HEALTH[facility]ARE LAB Specimen Type POC Capillary 04/28/2025 12:56 PM EDT [facility] LAB Blood Capillary blood specimen / Unknown 04/28/2025 12:52 PM EDT 04/28/2025 12:56 PM EDT us Marjorie Myers MD LAB POINT OF CARE TE ST DOCKED DEVICE UNSOLICITED RESULTS Final Result Performing Organization Address City/[facility]/ZIP Co de Phone Number [facility] [address] [place] [address] * (ABNORMAL) POCT glucose meter (04/28/2025 11:39 AM EDT) POCT Glucose 271(H) 74 - 99 mg/dL 04/28/2025 11:44 AM EDT [facility] Comment:Accuracy of [...] Comment 04/28/2025 11:44 AM EDT HEALTHCARE LAB Wing Commander ID Ailyn Finch 11:44 AM EDT HEALTHCARE LAB Device ID [id number] 04/28/2025 11:44 AM EDT [facility]ALTH[facility]ARE LAB Specimen Type POC Capillary 04/28/2025 11:44 AM EDT [facility] Blood Capillary blood specimen / Unknown 04/28/2025 11:39 AM EDT 04/28/2025 11:44 AM EDT us Marjorie Myers MD LAB POINT OF CARE TE ST DOCKED DEVICE UNSOLICITED RESULTS Final Result [facility] [address] [place] [address] * Lavender Top (04/28/2025 8:13 AM EDT) Extra Hold for add-ons 04/28/2025 11:01 AM EDT [facility] Comment:Auto resulted. Blood Venous blood specimen / Unknown 04/28/2025 8:13 AM EDT 04/28/2025 8:19 AM EDT us Marjorie Myers MD LAB BLOOD ORDERABLES Final Resul t Performing Organization Address City/[facility]/ZIP Co de Phone Number [facility] [address] [place] [address] * Light Green Top (04/28/2025 8:13 AM EDT) Extra Hold for add-ons 04/28/2025 11:01 AM EDT [facility] Comment:Auto resulted. Blood Venous blood specimen / Unknown 04/28/2025 8:13 AM EDT 04/28/2025 8:19 AM EDT us Marjorie Myers MD LAB BLOOD ORDERABLES Final Resul t Performing Organization Address [facility] Co de Phone Number [facility] [address] [place] [address] * APTT (04/28/2025 8:13 AM EDT) aPTT 32 25 - 35 sec 04/28/2025 8:33 AM EDT [facility] Blood Venous blood specimen / Unknown Venipuncture / Unknown 04/28/2025 8:13 AM EDT 04/28/2025 8:18 AM EDT us Sy De La Fuente KEYBOARD SPECIALIST, DNP LAB BLOOD ORDERABLES Fin al Result Performing Organization Address [facility] Co de Phone Number [facility] [address] [place] [address] * (ABNORMAL) PT/INR (04/28/2025 8:13 AM EDT) Prothrombin Time 17.5(H) 12.0 - 14.3 sec 04/28/2025 8:33 AM EDT [facility] INR 1.4(H) 0.9 - 1.1 04/28/2025 8:33 AM EDT [facility] Blood Venous blood specimen / Unknown Venipuncture / Unknown 04/28/2025 8:13 AM EDT 04/28/2025 8:18 AM EDT Narrative [facility] - 04/28/2025 8:33 AM EDT OPTIMAL INR RANGES FOR PATIENT ON ORAL ANTICOAGULANT THERAPY Prevention of venous thromboembolism INR 2.0 to 3.0 In patients with heart disease: Atrial fibrillation INR 2.0 to 3.0 Valvular heart disease INR 2.0 to 3.0 Tissue heart valves INR 2.0 to 3.0 Mechanical prosthetic valves INR 2.5 to 3.5 Prevention of recurrent ND INR 2.5 to 3.5 us Sy De La Fuente APRN, DNP LAB BLOOD ORDERABLES Fin al Result Performing Organization Address [facility] Co de Phone Number [facility] [address] [place] [address] * ECG Adult (04/28/2025 7:20 AM EDT) EKG DIAGNOSIS CLASS Abnormal MUSE ECG Ventricular Rate 90 BPM MUSE ECG Atrial Rate 90 BPM MUSE ECG NH Interval 206 ms MUSE ECG QRSD Interval 146 ms MUSE ECG QT Interval 450 ms MUSE ECG QTC Interval 550 ms MUSE ECG P [place] 69 degrees MUSE ECG R [place] -32 degrees MUSE ECG T Wave [place] 35 degrees MUSE ECG Diagnosis Baseline Artifact MUSE ECG Diagnosis Poor data quality, interpretation may be adversely affected MUSE ECG Diagnosis Normal sinus rhythm MUSE ECG Diagnosis Left atrial enlargement MUSE ECG Diagnosis Left axis deviation MUSE ECG Diagnosis Right bundle branch block MUSE ECG Diagnosis Abnormal ECG MUSE ECG Diagnosis MUSE ECG Diagnosis Confirmed by Lasha Navarrete ([id number]) on 04/28/2025 5:22:51 PM MUSE ECG 04/28/2025 7:20 AM EDT 04/28/2025 5:22 PM EDT us Sy De La Fuente APRN, DNP ECG ORDERABLES Final Re sult Performing Organization Address City/[facility] Co de Phone Number MUSE ECG * (ABNORMAL) POCT glucose meter (04/28/2025 7:17 AM EDT) POCT Glucose 199(H) 74 - 99 mg/dL [...] for testing. Comment 04/28/2025 7:21 AM EDT HEALTHCARE LAB Wing Commander ID Ailyn Finch 7:21 AM EDT HEALTHCARE LAB Device ID [id number] 04/28/2025 7:21 AM EDT HEALTHCARE LAB Specimen Type POC Capillary 04/28/2025 7:21 AM EDT [facility]ALTH[facility]ARE LAB Blood Capillary blood specimen / Unknown 04/28/2025 7:17 AM EDT 04/28/2025 7:21 AM EDT us Greg Lee MD LAB POINT OF CARE TE ST DOCKED DEVICE UNSOLICITED RESULTS Final Result Performing Organization Address City/State/[facility] Co de Phone Number [facility] [address] [place] [address] * CT Foot Right w IV Contrast [...] LAB BLOOD BANK TEST ORDERABLES Final Result BLOOD BANK [address] [place] [address], * Blood Culture (Aerobic/Anaerobet Set) (04/27/2025 10:16 PM EDT) Culture No growth at day 5 05/03/2025 12:01 AM EDT [facility] Blood Venous blood specimen / Unknown Venipuncture / Unknown 04/27/2025 10:16 PM EDT 04/27/2025 10:53 PM EDT Jessa Law MD LAB MICROBIOLOGY - GENERAL SANYA DOMINGUEZ Final Result [facility] [address] [place] [address] * Blood Culture (Aerobic/Anaerobet Set) (04/27/2025 10:16 PM EDT) Culture No growth at day 5 05/03/2025 12:01 AM EDT [facility] Blood Venous blood specimen / Unknown Venipuncture / Unknown 04/27/2025 10:16 PM EDT 04/27/2025 10:53 PM EDT Jessa Law MD LAB MICROBIOLOGY - GENERAL SANYA DOMINGUEZ Final Result Performing Organization Address City/[facility]/ZIP Co de Phone Number [facility] [address] [place] [address] * (ABNORMAL) Blood gas, venous (04/27/2025 10:16 PM EDT) pH, Venous 7.47(H) 7.32 - 7.43 LAB HEMATOLOGY METHOD 04/27/2025 10:21 PM EDT [facility] pCO2, Venous 50 40 - 55 mmHg LAB HEMATOLOGY METHOD 04/27/2025 10:21 PM EDT [facility] pO2, Venous 30 25 - 40 mmHg LAB HEMATOLOGY METHOD 04/27/2025 10:21 PM EDT [facility] SO2, Measured, Venous 52(L) 65 - 80 % LAB HEMATOLOGY METHOD 04/27/2025 10:21 PM EDT [facility] Base Excess, Venous 11.6(H) -2.0 - 3.0 mmol/L LAB HEMATOLOGY METHOD 04/27/2025 10:21 PM EDT [facility] Bicarbonate, Calculated, Venous 37(H) 22 - 26 mmol/L LAB HEMATOLOGY METHOD 04/27/2025 10:21 PM EDT [facility] Hematocrit, Whole Blood 30.1(L) 40.0 - 51.0 % LAB HEMATOLOGY METHOD 04/27/2025 10:21 PM EDT [facility] Sodium, Whole Blood 136 136 - 145 mmol/L LAB HEMATOLOGY METHOD 04/27/2025 10:21 PM EDT [facility] Potassium, Whole Blood 2.8(L) 3.6 - 4.9 mmol/L LAB HEMATOLOGY METHOD 04/27/2025 10:21 PM EDT [facility] Chloride, Whole Blood 88(L) 97 - 107 mmol/L LAB HEMATOLOGY METHOD 04/27/2025 10:21 PM EDT [facility] Glucose, Whole Blood 131(H) 74 - 99 mg/dL LAB HEMATOLOGY METHOD 04/27/2025 10:21 PM EDT [facility] Lactate, Venous, Whole Blood 2.0 0.5 - 2.2 mmol/L LAB HEMATOLOGY METHOD 04/27/2025 10:21 PM EDT [facility] Ionized Calcium, Whole Blood 4.2(L) 4.6 - 5.1 mg/dL LAB HEMATOLOGY METHOD 04/27/2025 10:21 PM EDT [facility] Blood Venous blood specimen / Unknown Venipuncture / Unknown 04/27/2025 10:16 PM EDT 04/27/2025 10:20 PM EDT us Jessa Law MD LAB BLOOD ORDERABLES Final Resu lt [facility] [address] [place] [address] * Creatine Kinase, Total, Plasma (04/27/2025 9:37 PM EDT) Creatine Kinase, Plasma 71 49 - 320 U/L 04/28/2025 8:36 AM EDT [facility] Blood Venous blood specimen / Unknown Venipuncture / Unknown 04/27/2025 9:37 PM EDT 04/27/2025 9:40 PM EDT us Sy De La Fuente KEYBOARD SPECIALIST, DNP LAB BLOOD ORDERABLES Fin al Result Performing Organization Address City/[facility]/ZIP Co de Phone Number [facility] [address] [place] [address] * (ABNORMAL) Procalcitonin (04/27/2025 9:37 PM EDT) Procalcitonin, Plasma 0.11(H) <0.09 ng/mL 04/28/2025 8:36 AM EDT [facility] Blood Venous blood specimen / Unknown Venipuncture / Unknown 04/27/2025 9:37 PM EDT 04/27/2025 9:40 PM EDT Narrative [facility] - 04/28/2025 8:36 AM EDT Procalcitonin [...] predict 28 day mortality risk. Please consult [email or web address] for more information. Test performed at [facility]. us Sy De La Fuente APRN, DNP LAB BLOOD ORDERABLES Fin al Result Performing Organization Address City/[facility]/ZIP Co de Phone Number [facility] [address] [place] [address] * (ABNORMAL) Sed rate, automated (04/27/2025 9:37 PM EDT) Sedimentation Rate >111(H) <15 mm/hr 2024 11:10 PM EDT [facility] Blood Venous blood specimen / Unknown Venipuncture / Unknown 04/27/2025 9:37 PM EDT 04/27/2025 9:40 PM EDT us Jessa Law MD LAB BLOOD ORDERABLES Final Resu lt Performing Organization Address City/[facility]/ZIP Co de Phone Number [facility] [address] [place] [address] * (ABNORMAL) Magnesium (04/27/2025 9:37 PM EDT) Magnesium, Plasma 1.2(L) 1.9 - 2.4 mg/dL 04/27/2025 10:11 PM EDT [facility] Blood Venous blood specimen / Unknown Venipuncture / Unknown 04/27/2025 9:37 PM EDT 04/27/2025 9:40 PM EDT Jessa Law MD LAB BLOOD ORDERABLES Final Resu lt [facility] [address] [place] [address] * Beta-Hydroxybutyric Acid (04/27/2025 9:37 PM EDT) Pathologist [facility] Beta-Hydroxybut yric Acid, Plasma 0.23 <=0.27 mmol/L 04/27/2025 10:56 PM EDT [facility] Blood Venous blood specimen / Unknown Venipuncture / Unknown 04/27/2025 9:37 PM EDT 04/27/2025 9:40 PM EDT Jessa Law MD LAB BLOOD ORDERABLES Final Resu lt Performing Organization Address [facility]/ZIP Co de Phone Number [facility] [address] [place] [address] * ED HIV 1/2 Antibody/Antigen Screen w/Reflex to HIV 1/2 Differentiation (04/27/2025 9:37 PM EDT) Pathologist [facility] HIV 1 & 2 Antibody/Antigen Screen Non Reactive Non Reactive 04/27/2025 10:41 PM EDT [facility] Comment:Screening for HIV 1 & 2 antibodies, and P24 antigen is NONREACTIVE. No confirmatory testing is required. Blood Venous blood specimen / Unknown Venipuncture / Unknown 04/27/2025 9:37 PM EDT 04/27/2025 10:00 PM EDT Madhu Ritchie MD LAB BLOOD ORDERABLES Final Res ult Performing Organization Address City/[facility]/ZIP Co de Phone Number [facility] [address] [place] [address] * Hepatitis C Antibody - ED (04/27/2025 9:37 PM EDT) [facility] Hepatitis C Antibody Negative Negative 04/27/2025 10:41 PM EDT [facility] Blood Venous blood specimen / Unknown Venipuncture / Unknown 04/27/2025 9:37 PM EDT 04/27/2025 10:00 PM EDT Madhu Ritchie MD LAB BLOOD ORDERABLES Final Res ult Performing Organization Address [facility] Co de Phone Number [facility] [address] [place] [address] * (ABNORMAL) C-reactive protein (04/27/2025 9:37 PM EDT) [facility] CRP, Plasma 82.6(H) <=8.0 mg/L 04/27/2025 10:03 PM EDT [facility] Blood Venous blood specimen / Unknown Venipuncture / Unknown 04/27/2025 9:37 PM EDT 04/27/2025 9:40 PM EDT Narrative [facility] - 04/27/2025 10:03 PM EDT This CRP test is appropriate for assessment of infection, systemic inflammation and/or tissue injury. To assess cardiovascular disease risk order high sensitivity CRP (CRPH). us Madhu Ritchie MD LAB BLOOD ORDERABLES Final Res ult Performing Organization Address [facility] Co de Phone Number [facility] [address] [place] [address] * (ABNORMAL) CBC w/diff (04/27/2025 9:37 PM EDT) [facility] WBC Count 12.00(H) 3.70 - 10.30 10*3/uL LAB HEMATOLOGY METHOD 04/27/2025 9:43 PM EDT [facility] RBC Count 4.48(L) 4.60 - 6.10 10*6/uL LAB HEMATOLOGY METHOD 04/27/2025 9:43 PM EDT [facility] HGB 10.4(L) 13.7 - 17.5 g/dL LAB HEMATOLOGY METHOD 04/27/2025 9:43 PM EDT [facility] HCT 33.3(L) 40.0 - 51.0 % LAB HEMATOLOGY METHOD 04/27/2025 9:43 PM EDT [facility] Platelet Count 282 155 - 369 10*3/uL LAB HEMATOLOGY METHOD 04/27/2025 9:43 PM EDT [facility] MCV 74(L) 79 - 98 fL LAB HEMATOLOGY METHOD 04/27/2025 9:43 PM EDT [facility] MCH 23.2(L) 26.0 - 32.0 pg LAB HEMATOLOGY METHOD 04/27/2025 9:43 PM EDT [facility] MCHC 31.2 30.7 - 35.5 g/dL LAB HEMATOLOGY METHOD 04/27/2025 9:43 PM EDT [facility] RDW 19.4(H) 11.5 - 14.5 % LAB HEMATOLOGY METHOD 04/27/2025 9:43 PM EDT [facility] MPV 8.3(L) 8.8 - 12.5 fL LAB HEMATOLOGY METHOD 04/27/2025 9:43 PM EDT [facility] nRBC 0.0 <=0.0 per 100 WBCs LAB HEMATOLOGY METHOD 04/27/2025 9:43 PM EDT [facility] Differential Type Automated LAB HEMATOLOGY METHOD 04/27/2025 9:43 PM EDT [facility] Neutrophils % 82 % LAB HEMATOLOGY METHOD 04/27/2025 9:43 PM EDT [facility] Lymphocytes % 9 % LAB HEMATOLOGY METHOD 04/27/2025 9:43 PM EDT [facility] Monocytes % 7 % LAB HEMATOLOGY METHOD 04/27/2025 9:43 PM EDT [facility] Eosinophils % 2 % LAB HEMATOLOGY METHOD 04/27/2025 9:43 PM EDT [facility] Basophils % 0 % LAB HEMATOLOGY METHOD 04/27/2025 9:43 PM EDT [facility] Immature Granulocytes % 0 % LAB HEMATOLOGY METHOD 04/27/2025 9:43 PM EDT [facility] Neutrophils Absolute 9.73(H) 1.60 - 6.10 10*3/uL LAB HEMATOLOGY METHOD 04/27/2025 9:43 PM EDT [facility] Lymphocytes Absolute 1.11(L) 1.20 - 3.90 10*3/uL LAB HEMATOLOGY METHOD 04/27/2025 9:43 PM EDT [facility] Monocytes Absolute 0.80 0.30 - 0.90 10*3/uL LAB HEMATOLOGY METHOD 04/27/2025 9:43 PM EDT [facility] Eosinophils Absolute 0.29 0.00 - 0.50 10*3/uL LAB HEMATOLOGY METHOD 04/27/2025 9:43 PM EDT [facility] Basophils Absolute 0.03 0.00 - 0.10 10*3/uL LAB HEMATOLOGY METHOD 04/27/2025 9:43 PM EDT [facility] Immature Granulocytes Absolute 0.04 0.00 - 0.06 10*3/uL LAB HEMATOLOGY METHOD 04/27/2025 9:43 PM EDT [facility] Blood Venous blood specimen / Unknown Venipuncture / Unknown 04/27/2025 9:37 PM EDT 04/27/2025 9:40 PM EDT Narrative [facility] - 04/27/2025 9:43 PM EDT Therapeutic decision making should be based on absolute values, rather than percentages. us Madhu Ritchie MD LAB BLOOD ORDERABLES Final Res ult [facility] [address] [place] [address] * (ABNORMAL) BMP (04/27/2025 9:37 PM EDT) Glucose, Plasma 135(H) 74 - 99 mg/dL 04/27/2025 10:03 PM EDT [facility] BUN, Plasma 8 7 - 21 mg/dL 04/27/2025 10:03 PM EDT [facility] Creatinine, Plasma 0.84 0.70 - 1.20 mg/dL 04/27/2025 10:03 PM EDT [facility] BUN/Creatinine Ratio 10 04/27/2025 10:03 PM EDT [facility] Sodium, Plasma 135(L) 136 - 145 mmol/L 04/27/2025 10:03 PM EDT [facility] Potassium, Plasma 3.3(L) 3.6 - 4.9 mmol/L 04/27/2025 10:03 PM EDT [facility] Chloride, Plasma 90(L) 97 - 107 mmol/L 04/27/2025 10:03 PM EDT [facility] CO2, Plasma 29 22 - 29 mmol/L 04/27/2025 10:03 PM EDT [facility] Anion Gap 16 6 - 16 mmol/L 04/27/2025 10:03 PM EDT [facility] Total Calcium, Plasma 9.0 8.9 - 10.2 mg/dL 04/27/2025 10:03 PM EDT [facility] eGFRcr 108.2 mL/min/1.7 3m*2 04/27/2025 10:03 PM EDT [facility] Comment:Reported eGFRcr in m L/min/1.73m2 is based the CKD-EPI 2020 equation that does not use a race coefficient. Blood Venous blood specimen / Unknown Venipuncture / Unknown 04/27/2025 9:37 PM EDT 04/27/2025 9:40 PM EDT us Madhu Ritchie MD LAB BLOOD ORDERABLES Final Res ult [facility] [address] [place] [address] documented in this encounter Visit Diagnoses Diagnosis Other chronic osteomyelitis of right foot (CMS/HCC) Diabetic foot ulcer with osteomyelitis Type II [...] sleeve procedure Type 2 diabetes Morbid obesity ([facility]) Morbid obesity Diabetic foot ulcer with [...] at 0701, Until Thu05/09/25 at 0821, Routine, Mild + Pain > or =1: CPOT, DVPRS, FLACC, PAINAD, NPASS, NRS, Boston-Kline Faces; > or =2: NIPS , Moderate/Severe Pain > or =3: CPOT; > or =4: FLACC, PAINAD, NPASS, NRS, Boston-Kline Faces; > or =5: DVPRS, NIPS , headaches, fever, severe pain, fever > 100.4 Given 05/02/2025 8:58 PM EDT 1,000 mg Given 05/01/2025 8:25 PM EDT 1,000 mg Given 04/30/2025 3:28 AM EDT 1,000 mg acetaminophen (Tylenol) tablet 1,000 mg 1,000 mg, Oral, Every 6 hours PRN, Starting on Thu05/09/25 at 0820, Until Michaelle 05/18/25 at 1348, Routine, Mild + Pain > or =1: CPOT, DVPRS, FLACC, PAINAD, NPASS, NRS, Boston-Kline Faces; > or =2: NIPS , headaches, fever, fever > 100.4 Given 05/17/2025 [...] on Thu05/06/25 at 1245, Until Discontinued, Routine Given 05/18/2025 [...] 1 mg, Intravenous, Once, 1 dose, On Michaelle 04/27/25 at 2300, STAT Given 04/27/2025 11:00 PM [...] Units, Subcutaneous, 2 times nightly (2099 & 0300), First dose on Thu05/10/25 at [...] times daily with meals, First dose on Thu05/11/25 at 1230, Until Discontinued, Routine Given 05/12/2025 [...] meals, First dose (after last modification) on Thu05/07/25 at 0830, Until Discontinued, Routine Given 05/08/2025 [...] daily, First dose (after last modification) on 04/30/25 at 2100, Until Discontinued, Routine Given 04/30/2025 [...] daily, First dose (after last modification) on Thu05/04/25 at 2100, Until Discontinued, Routine Given 05/04/2025 [...] dose (after last modification) on Thu05/05/25 at 2100, Until Discontinued, Routine Given 05/06/2025 9:10 AM EDT 70 Units Left Lower Abdomen Given 05/05/2025 8:34 PM EDT 70 Units Ri ght Upper Arm (Back) insulin NPH (Isophane) (HumuLIN N,NovoLIN N) injection 75 Units 75 Units, Subcutaneous, 2 times daily, First dose (after last modification) on Thu05/06/25 at 2100, Until Discontinued, Routine Given 05/06/2025 [...] High CONCENTRATION: 500 units/mL, First dose on 05/14/25 at 0800 Given 05/15/2025 9:12 AM EST [...] High CONCENTRATION: 500 units/mL, First dose on 05/14/25 at 1800 Given 05/17/2025 5:33 PM EST [...] High CONCENTRATION: 500 units/mL, First dose on 05/08/25 at 1730 Given 05/09/2025 8:17 AM EDT [...] units/mL, First dose (after last modification) on 05/09/25 at 1730 Given 05/10/2025 5:28 PM EDT [...] dose (after last reorder) on Thu05/14/25 at 0800 Given 05/15/2025 9:11 AM EST [...] (after last reorder) on Thu05/14/25 at 1800 Given 05/17/2025 5:32 PM EST [...] Once in imaging, 1 dose, Starting on Michaelle 04/27/25 at 2225, Until Thu04/28/25 at 0335, Routine, [...] Until Thu05/18/25 at 1348, Routine, For constipation magnesium oxide (Mag-Ox) tablet 800 mg 800 mg, Oral, Daily, First dose on Thu05/02/25 at 0915, Until Discontinued, Routine Given 05/18/2025 9:0 7 AM EST 800 mg Given 05/17/2025 9:01 AM EST 800 mg Given 05/16/2025 8:54 AM EST 800 mg magnesium sulfate IVPB 2 g 2 g, Intravenous, Once, 1 dose, On Thu04/27/25 at 2220, STAT New Bag 04/27/2025 10:35 PM EDT 2 g 25 mL/hr magnesium sulfate IVPB 2 g 2 g, Intravenous, Once, 1 dose, On Thu05/03/25 at 0930, Routine New Bag 05/03/2025 9:22 AM EDT 2 g 2 5 mL/hr magnesium sulfate IVPB 4 g 4 g, Intravenous, Once, 1 dose, On Thu04/30/25 at 0730, Routine New Bag 04/30/2025 8:09 AM EDT 4 g 2 5 mL/hr magnesium sulfate IVPB 4 g 4 g, Intravenous, Once, 1 dose, On Thu05/12/25 at 0600, Routine New 05/12/2025 5:28 AM EDT 4 g 2 [...] mL/hr, Administer over 3 Hours, Routine New 05/03/2025 12:44 PM EDT 2 g 50 mL/hr New 05/03/2025 4:00 AM EDT 2 g 50 mL/hr New 05/02/2025 8:57 PM EDT 2 g 50 [...] at 0702, Until 04/29/25 at 0754, Routine, Moderate/Severe Pain > or =3: CPOT; > or =4: FLACC, PAINAD, NPASS, NRS, [place]-Kline Faces; > or =5: DVPRS, NIPS , severe pain Given 04/29/2025 4:35 AM EDT 5 mg Given 04/28/2025 10:31 PM EDT 5 mg Given 04/28/2025 3:00 PM EDT 5 mg oxyCODONE (Roxicodone) immediate release tablet 5 mg 5 mg, Oral, Every 4 hours PRN, Starting on 04/29/25 at 0754, Until Michaelle 05/18/25 at 1348, Routine, Moderate/Severe Pain > or =3: CPOT; > or =4: FLACC, PAINAD, NPASS, NRS, [place]line Faces; > or =5: DVPRS, NIPS , severe pain Given 05/18/2025 9:07 AM EST [...] 20 mEq, Oral, Once, 1 dose, On 04/29/25 at 0845, Routine Given 04/29/2025 8:28 AM [...] 2 hours, 2 doses, First dose on Thu04/30/25 at 0730, Last dose on 04/30/25 at [...] Michaelle 05/11/25 at 0830, Last dose on Thu05/11/25 at 1030, Routine Given 05/11/2025 12:37 PM [...] on 05/15/25 at 1015, Last dose on Thu05/15/25 at 1215, Routine Given 05/15/2025 12:52 PM [...] 0.25 mg Left Lower Abdomen sodium chloride (Crow [place]) 0.65 % nasal spray 1 spray 1 spray, Each Nostril, As needed, Starting on 05/06/25 at 1208, Until Thu05/09/25 at 0821, Routine, congestion Given 05/07/2025 3:52 AM EDT 1 spray sodium chloride (Crow [place]) 0.65 % nasal spray 1 spray 1 [...] on Thu05/07/25 at 0930, Until Discontinued, Routine 0856 (Given - Provider: Deepthi Herman RN) bisoprolol (Zebeta) tablet 10 mg 10 mg, Oral, Daily, First dose (after last modification) on Thu05/17/25 at 0900, Until Discontinued, Routine 0900 (Given - Provider: Deepthi Herman, LOLA) 0907 (Given - Provider: Kylee Gonzalez RN) bumetanide (Bumex) tablet 4 mg 4 mg, Oral, 3 times daily, First dose on Thu04/28/25 at 0900, Until Discontinued, Routine 0856 (Given - Provider: Deepthi Herman RN)1626 (Given - Provider: Deepthi Herman RN)1999 (Given - Provider: Ivan Slaughter RN) 09 (Given - Provider: Deepthi Herman RN)170 (Given - Provider: Deepthi Herman RN)2003 (Given - Provider: Ivan Slaughter RN) 09 (Given - Provider: Kylee Gonzalez RN) cariprazine (Vraylar) capsule 3 mg 3 mg, Oral, Daily, First dose on Thu04/28/25 at 0900, Until Discontinued 0857 (Given - Provider: Deepthi Herman RN) 09 (Given - Provider: Deepthi Herman RN) 09 (Given - Provider: Kylee Gonzalez RN) dilTIAZem CD (Cardizem CD) 24 hr capsule 120 mg 120 mg, Oral, Daily, First dose on Thu04/28/25 at 0900, Until Discontinued, Routine 0856 (Given - Provider: Deepthi Herman RN) 09 (Given - Provider: Deepthi Herman RN) 09 (Given - Provider: Kylee Gonzalez RN) ferrous sulfate EC tablet 324 mg 324 mg, Oral, Every other day, First dose on Michaelle 05/11/25 at 0900, Until Discontinued, Routine 09 (Given - Provider: Deepthi Herman RN) finasteride (Proscar) tablet 5 mg 5 mg, Oral, Daily, First dose on 05/06/25 at 1245, Until Discontinued, Routine 0856 (Given - Provider: Deepthi Herman RN) 09 (Given - Provider: Deepthi Herman RN) 09 (Given - Provider: Kylee Gonzalez RN) fluticasone (Flonase) nasal spray 2 spray 2 spray, Each Nostril, Daily, First dose on 05/06/25 at 1245, Until Discontinued, Routine 0907 (Given [...] Deepthi Herman RN)2003 (Given - Provider: Ivan lSaughter RN) 0906 (Given - Provider: Kylee Gonzalez RN) insulin lispro (Admelog) 100 units/mL injection - Correction - Very Resistant Dose 0-15 Units, Subcutaneous, 3 times daily with meals, First dose on Thu05/10/25 at 1245, Until Discontinued, Routine 0905 (Given - Provider: Deepthi Herman RN)1306 (Given - Provider: Deepthi Herman, LOLA)1755 (Given - Provider: Deepthi Herman RN) 0907 (Given - Provider: Deepthi Herman RN)1216 (Given - Provider: Deepthi Herman RN)1729 (Given - Provider: Deepthi Herman RN) 0853 (Not Given - Provider: Kylee Gonzalez RN - Reason: Order parameters not met)1230 (Canceled Entry - Provider: Automatic Discharge Provider - Comment: Automatically canceled at discontinue of medication order) insulin lispro (Admelog) injection - Correction - Nighttime Dose 0-3 Units, Subcutaneous, 2 times nightly (2100 & 0300), First dose on Thu05/10/25 at 2100, Until Discontinued, Routine 0224 (Not Given - Provider: Ivan Slaughter RN - Reason: Order parameters not met)4 (Not Given - Provider: Ivan Slaughter RN - Reason: Order parameters not met) 229 (Not Given - Provider: Ivan Slaughter RN - Reason: Order parameters not met)2003 (Not Given - Provider: Ivan Slaughter RN - Reason: Order parameters not met) 251 (Not Given - Provider: Ivan Slaughter RN [...] Herman RN) 1732 (Given - Provider: Deepthi Herman RN) insulin [...] Herman RN) 0907 (Given - Provider: Deepthi Herman RN) 0909 (Given - Provider: Kylee Gonzalez RN - Comment: [facility]) insulin regular (HumuLIN R U-500) 500 UNIT/ML CONCENTRATED injection 30 Units(Linked Group 2) 30 Units, Subcutaneous, Daily with breakfast, Administer using a U-500 syringe. (GREEN CAP SYRINGE). If patient is NPO, contact endocrine prior to administering dose. Note High CONCENTRATION: 500 units/mL, First dose (after last modification) on Thu05/16/25 at 0800 0904 (Given - Provider: Deepthi Herman RN) 0907 (Given - Provider: Deepthi Herman RN) 09 (Given - Provider: Kylee Gonzalez RN - Comment: [facility]) insulin regular (HumuLIN R U-500) [...] 0900, Routine 0857 (Given - Provider: Deepthi Herman RN) magnesium oxide (Mag-Ox) tablet 800 mg 800 mg, Oral, Daily, First dose on Thu05/02/25 at 0915, Until Discontinued, Routine 0854 (Given - Provider: Deepthi Herman RN) 0901 (Given - Provider: Deepthi Herman RN) 0907 (Given - Provider: Kylee Gonzalez RN) miconazole (Micotin) 2 % powder Topical, 2 times daily, First dose on Thu05/02/25 at 1345, Until Discontinued, Routine 0907 (Given - Provider: Deepthi Herman RN)2000 (Given - Provider: Ivan Slaughter RN) 09 [...] - Provider: Kylee Gonzalez RN - Comment: [facility]) perflutren lipid microspheres (Definity) injection 16.3 mg [...] 0902 (Given - Provider: Deepthi Herman RN) 09 (Given - Provider: Kylee Gonzalez RN) tamsulosin (Flomax) 24 hr capsule 0.4 mg 0.4 mg, Oral, Daily, First dose on Thu04/28/25 at 0900, Until Discontinued, Routine 0855 (Given - Provider: Deepthi Herman RN) 09 (Given - Provider: Deepthi Herman RN) 09 (Given - Provider: Kylee Gonzalez RN) venlafaxine XR (Effexor-XR) 24 hr capsule 150 mg 150 mg, Oral, Daily, First dose on Thu04/28/25 at 0900, Until Discontinued 0854 (Given - Provider: Deepthi Herman RN) 09 (Given - Provider: Deepthi Herman RN) 905 (Given - Provider: Kylee Gonzalez RN) PRN Medication Order 05/16/2025 05/17/2025 05/18/2025 acetaminophen (Tylenol) tablet 1,000 mg 1,000 mg, Oral, Every 6 hours PRN, Starting on Thu05/09/25 at 0820, Until Michaelle 05/18/25 at 1348, Routine, Mild + Pain > or =1: CPOT, DVPRS, FLACC, PAINAD, NPASS, NRS, [place]line Faces; > or =2: NIPS , headaches, fever, fever > 100.4 0856 (Given - Provider: Deepthi Herman RN)1626 (Given - Provider: Deepthi Herman RN) 09 (Given - Provider: Deepthi Herman RN) albuterol [...] Oral, Every 4 hours PRN, Starting on Thu04/29/25 at 0754, Until Thu05/18/25 at 1348, Routine, Moderate/Severe Pain > or =3: CPOT; > or =4: FLACC, PAINAD, NPASS, NRS, [place] Faces; > or =5: DVPRS, NIPS , severe pain 0855 (Given - Provider: Deepthi Herman, RN)1626 (Given - Provider: Deepthi Herman, RN)2224 (Given - Provider: Ivan Slaughter, RN) 0902 (Given - Provider: Deepthi Herman, RN)1424 (Given - Provider: Deepthi Herman, RN)2228 (Given - Provider: Ivan Slaughter RN) 0907 (Given - Provider: Kylee Gonzalez RN) sodium chloride ([place]) 0.65 % nasal spray 1 spray 1 spray, Each Nostril, Every 2 hour PRN, Starting on Thu05/09/25 at 0821, Until Thu05/18/25 at 1348, Routine, congestion sodium chloride 0.9 % flush 10 mL(Linked Group 3) 10 mL, Intravenous, As needed, Starting on Thu04/28/25 at 0658, Until Thu05/18/25 at 1348, Routine, line care Linked Groups Order Group 1: insulin regular (HumuLIN R U-500) 500 UNIT/ML CONCENTRATED injection 250 UnitsJump to med 250 Units, Subcutaneous, Daily with dinner, Administer using a U-500 syringe. (GREEN CAP SYRINGE). If patient is NPO, contact endocrine prior to administering dose. Note High CONCENTRATION: 500 units/mL, First dose (after last reorder) on Thu05/14/25 at 1800 And insulin regular (HumuLIN R [...] needed, Starting on Thu04/28/25 at 0658, Until Thu05/18/25 at 1348, Routine, line care Group 4: [...] documented as of this encounter Care Teams Actimize Architect Relationship Specialty Start Date End Date Malcolm Hayward APRN [address] [place] [address] PCP - General 09/21/23 documented as of this encounter
--- OUTSIDE RECORDS SUMMARY | 2025-05-01 06:28 | XMS_ITS | Encounter Summary ---
Author Organization Healthcare Address [address] [id number] Care Team Providers Care Pipe Fitter Supervisor Name Role Phone MainorMalcolm Rodrick DIANA Primary Care Provider [phone] Reason for Visit * Auth/Cert (Routine) Specialty Diagnoses / Procedures Referred By Anish t Referred To Contact Diagnoses Diabetic foot ulcer with osteomyelitis Greg Lee MD [address] [place] [phone] Phone: tel: fax: [facility] Emergency Department [address] [place] [phone] Phone: tel: Referral ID Status Reason Start Date Expiration Date Visits Re quested Visits Authorized [id number] 1 1 Encounter Details Date Type Department Care Team (Late st Contact Info) Description 05/01/2025 7:28 AM EDT Anesthesia Event [facility] OPERATING ROOM [address] [place] [phone] Gilberto Rivera MD [address] [place] [phone] Hermilo Qiu MD [address] [place] [address] Anesthesia Record Procedure Summary Procedure Name Responsible [...] living in a retirement (including now)? No 04/28/2025 [facility] Utilities Answer Date Recorded In the past 12 months has e [employer], gas, oil, or water company threatened to [...] monitoring: continuous pulse ox, heart rate and filler leaf cutter long Block type: adductor canal and popliteal Laterality: [...] portions of the procedure(s) and immediately available [facility] services the entire duration. See resident note for details. * Anesthesia Preprocedure Evaluation - Gilberto Rivera MD - 05/01/2025 7:04 AM EDT Anesthesiologist: Gilberto Rivera MD DATA SOLUTIONS ARCHITECT: Alen Mena CRNA, DENISE Patient: Gonzalo Russell HPI Gonzalo Russell is a 49 y.o. male with body mass index is 76.9 kg/m??. who presents with Diabetic foot ulcer, now for AMPUTATION,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 4th (Right) Procedure Information Date/Time: 05/01/25 07 Procedure: AMPUTATION,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 4th (Right: Toes) Location: [facility] / [place] Surgeons: Mary Vicente [...] (NEURONTIN) 600 mg, 3 times daily HYDROcodone-acetaminophen ([place]) 10-325 MG tablet 1 tablet, Every 6 hours PRN Insulin Pen Needle (Pen [place]) 31G X 5 MM [facility] USE TO INJECT INSULIN 3 TIMES PER [...] ABG No results found for: PHART , TPG4OSJ , PO2ART , SO2ART , BEART , ALY0UGO , HCTART , SODIUMART , POTASSIUMART , POCTCL , POCGLU , IONCALART , LACTATE Lab Results Component Value Date HCTSYR 30.1 (L) 04/27/2025 KSYR 2.8 (L) 04/27/2025 CLSYR 88 (L) 04/27/2025 GLUSYR 131 (H) 04/27/2025 CAION 4.2 (L) 04/27/2025 ECHO No echocardiogram results found for the past 12 months PFTs No results found for: UVP0YMQ , HSS7TFPF , GCS4FEA , FVCPRED BP Readings from Last 5 Encounters: 05/01/25 121/76 01/10/25 (!) 156/90 12/17/24 128/65 12/12/24 118/71 09/13/24 (!) 137/90 Physical Exam Airway Mallampati: II Cardiovascular Rhythm: regular Rate: normal Dental Pulmonary (+) decreased breath sounds Neurological Skin Musculoskeletal Extremities Anesthesia Plan ASA 4 Plan was reviewed with: DATA SOLUTIONS ARCHITECT Anesthesia technique(s) discussed with the patient/family: general, [...] Description 06/12/2025 2:00 PM EST Office Visit [address] [place] [address] [place] [address] [place] [address] [address] [place] [address] 06/22/2025 1:40 PM EST Office Visit [facility] [address] [facility] 5th Floor [address] [place] [address] Mary Vicente MD [address] [place] [address] 06/23/2025 8:00 AM EST Office Visit [facility] [address] 5th Floor [address] [place] [address] Sheila Marcano PA [address] [facility] [address] [place] [address] documented as of this encounter [...] monitoring: continuous pulse ox, heart rate and filler leaf cutter long Block type: adductor canal and popliteal Laterality: [...] documented as of this encounter Care Teams Pipe Fitter Supervisor Relationship Specialty Start Date End Date Malcolm Hayward APRN [address] [place] [address] PCP - General 09/21/23 documented as of this encounter
--- OUTSIDE RECORDS SUMMARY | 2025-05-01 06:30 | XMS_ITS | Encounter Summary ---
Author Organization Healthcare Address [address] [id number] Care Team Providers Care Medical Record Specialist Name Role Phone DontaemyrtleMalcolm camejo Rodrick DIANA Primary Care Provider [phone] Reason for Visit * Reason Comments Wound Check * Auth/Cert (Routine) Specialty Diagnoses / Procedures Referred By Conthaja t Referred To Contact Diagnoses Diabetic foot ulcer with osteomyelitis Greg Lee MD [address] [place] [address] Phone: tel: fax: [facility] Emergency Department [address] [place] [address] Phone: tel: Referral ID Status Reason Start Date Expiration Date Visits Re quested Visits Authorized [id number] 1 1 Encounter Details Date Type Department Care Team (Late st Contact Info) Description 05/01/2025 7:30 AM EDT - 05/01/2025 8:50 AM EDT Surgery [facility] OPERATING ROOM [address] [place] [address] Mary Vicente MD [address] [place] [address] AMPUTATION,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 4th [...] any time in the past 12 m [facility], were you homeless or living in a senior care (including now)? No 04/28/2025 [facility] Utilities Answer Date Recorded In the [...] 5 tablet 05/17/2025 Insulin Pen Needle (Pen Groesbeck) 31G X 5 MM misc USE TO [...] capsule by mouth daily. 05/10/2018 HYDROcodone-acetami nophen (Freeport) 10-325 MG tablet Take 1 tablet by [...] exposure provided Taken 05/17/20252227 by Ivan Slaughter RNmiddle school history teacher Interventions: medication (see MAR) Goal: Optimal Wound [...] Plan Flowsheets (Taken 05/17/2025 2228 by Ivan Slaugther RN) Pain Management Interventions: medication (see MAR) [...] of Daily Living 05/18/2025 1131 by Kylee Gonazlez RN Outcome: Ongoing, Progressing 05/18/2025 1130 by Kylee Gonzalez RN Outcome: Ongoing, Progressing Intervention: Promote Activity and Functional [place] Flowsheets Taken 05/18/2025 1131 by Kylee Gonzalez [...] DO PCP name and Address: Malcolm Hayward, SUPERVISOR [employer] [address] [place] [address] / [facility], [place] [address] Brief History of Present Illness 49 M [...] extremity. He was accepted for discharge to [facility] rehab facility. Urinary Retention and Recurrent UTI [...] He was medically stable for discharge to [facility] rehab facility, with recommendations for close follow-up [...] HYDROcodone-acetaminophen 10-325 MG tablet Commonly known as: Freeport Take 1 tablet by mouth every 6 [...] the skin 1 time per week. Pen Groesbeck 31G X 5 MM [facility] USE TO INJECT INSULIN 3 TIMES PER [...] Your Medications These medications were sent to [facility] [address] [address] gabapentin 600 MG tablet HYDROcodone-acetaminophen 10-325 MG tablet insulin regular 100 UNIT/ML injection vial insulin regular 500 UNIT/ML CONCENTRATED injection vial Information about where to get these medications is not yet available Ask your nurse or doctor about these medications ferrous sulfate 324 MG tablet delayed-release Discharge Diagnosis Medical Problems Active and Resolved Hospital Problems Hospital Morbid obesity ([facility]) Hypertension Type [...] H 05/30/2025 2:40 PM Sheila Marcano PA [facility] 06/14/2025 1:40 PM Divine Archer APRN ENDOTFBNBR [facility] 06/22/2025 1:40 PM Mary Vicente MD [facility] Pertinent Physical Exam At Time of [...] Note Gonzalo Smalls 49 y.o. male CSN: [id number] Admission: 04/27/2025 9:29 PM Primary Problem: Diabetic foot ulcer Primary Time Motion Analyst: Primary Caregiver: Self Assistance Available at Discharge: Availability of Care Givers (#Hours): 24 hours Housing Circumstances-Z Codes: Housing Circumstances (select all that apply): Low Income (101-300% Federal Poverty Guidlines) - Z596 Discharge Facility/Level of Care Needs: Discharge Facility/Level of Care Needs: 62-Rehab facilty ([place]) Patient's Choice of Community Agency(s): Patient's Choice of Community Agency(s): [facility] Patient/Family Anticipated Services at Transition: [...] Recieved By: Gonzalo Smalls- the patient Follow-up: [facility] [address] Floor [address], [address] [facility] [id number] Primary care provider (PCP) Malcolm Hayward, SUPERVIS[employer] [address] [facility] [address] Discharge Transportation: Transportation Anticipated: medical transport Transportation [...] Araceli in admission who confirmed pt's acceptance #[phone]. Pt updated and in agreement with d/c plan. Team and bedside RN updated. Bedside RN to call report to #[phone]. Araceli has access to [place] and will get d/c s [facility] that way. Script for controlled medication to be sent to [facility] [place]. Ambulance to transport the pt is [...] Mobility Bed Mobility Exam: Scooting/Bridging Level of [place]: Contact guard Physical/Nonphysical Assist: Verbal Cues, Minimal cues Assistive Device: Overhead trapeze Bed Mobility Exam: Supine to Sit Level of [place]: Minimum assist (75% patient's effort) Physical/Nonphysical Assist: HOB elevated, Verbal Cues, Minimal cues Assistive Device: Overhead trapeze Bed Mobility Exam: Sit to Supine Level of [place]: Stand-by assist Physical/Nonphysical Assist: Verbal Cues, Minimal cues Assistive Device: Overhead trapeze Transfers Transfer Exam: Sit to stand Level of [place]: Maximum assist (25% patient's effort) Physical/Nonphysical Assist: Verbal Cues, Nonverbal cues (demo/gestures), Additional assist utilized for safety, Set-up required, Minimal cues Assistive Device: Walker, rolling (bariatric) Transfer Exam: Stand to Sit Level of [place]: Maximum assist (25% patient's effort) Physical/Nonphysical Assist: [...] help from Spouse Level of Mobility Mobility [place] Independent gait with device History of Falls [...] go, I'm just nervous. Visitors Present No Social Service Liaison (if applicable) Social Service Liaison: Not Applicable OBJECTIVE PAIN Pt was without c/o pain at the beginning of this session and throughout the PT treatment. Prior to PHYSICAL PLANT EMPLOYEE's departure: * rest was provided * patient [...] by this therapist: BED MOBILITY Level of [place] Physical/Non- physical Assist Adaptive Equipment Utilized Rolling/ Turning Contact guard Verbal Cues, Set-up required, Minimal cues Bed rails, Other (VENDING MACHINE HOST/HOSTESS) Scooting/ Bridging Contact guard Verbal Cues, Minimal [...] breaks between standing trials. TRANSFERS Level of [place] Physical/Non- physical Assist Adaptive Equipment Utilized Sit [...] placement, sequencing, weight shifting, appropriate use of VENDING MACHINE HOST/HOSTESS, and maintaining NWB on RLE. Tactile cues provided to assist in sequencing and weight shifting. AMBULATION Level of [place] Distance Adaptive Equipment Utilized Ambulation N/A N/A N/A Comments Unable to side step or progress to forward hop step at bariatric RW level due to inabilityto maintain prolonged standing position while maintaining NWB in RLE. BALANCE Postural Appearance Posture: Within Functional Limits, Forward head Level of [place] Balance Support Activities Static Sit Standby assist [...] Abduction * Ankle pumps x1-2 sec holds PH[employer]ICAL PLANT EMPLOYEE provided minimal verbal and tactile cueing to [...] overall. Standardized Assessments Standardized Assessments Standardized Assessments: [facility] 6-Clicks Mobility Assessment [facility] 6-Clicks Mobility Assessment Difficulty patient [...] climbing 3-5 steps with a railing?: Unable [facility] 6-Clicks Mobility Assessment Total : 11 PATIENT / FAMILY EDUCATION Patient was educated regarding the PT POC and recommendations regarding discharge planning, as wellas progressively increased time spent out of bed/up to chair, and continued mobilization / ambulation with nursing staff as tolerated to promote increased activity tolerance and Endurance. PH[employer] PLANT EMPLOYEE providing verbal cues/demonstration for pursed-lip breathing technique to promote improved ventilation, decreased respiratory rate and energy conservation with activity. PHYSICAL PLANT EMPLOYEE stressed to patient the importance of having [...] has been following with urology outpatient at [facility]. They have postulated this to be related [...] Ongoing, Progressing Intervention: Promote Activity and Functional [place] Flowsheets Taken 05/16/20251999 by Ivan Slaughter RN [...] -Diabetes education: completed 05/10 -Follow-up plan: home player services representative - Dr Anette Kendall -Tentative discharge [...] at $35 per vial. Also discussed contacting [employer] directly for the financial assistance program. -hopefully [...] team via secure chat or page us [phone] during 7a-7p, Thursday-Thursday. For after hours please [...] Ongoing, Progressing Intervention: Promote Activity and Functional [place] Flowsheets (Taken 05/16/2025 1949) Self-Care Promotion: independence encouraged * Progress Notes - Chayo Jennings RN - 05/16/2025 2:16 PM EST Case Management Adult Progress Note Gonzalo Smalls 49 y.o. male CSN: [id number] Admission: 04/27/2025 9:29 PM Primary Problem: Diabetic foot ulcer Anticipated Discharge Date: 05/18/25 Pt is in a need for rehab placement and was referred and accepted by Merly Espinoza- LOLA CM spoke with Araceli in admission, ph#[phone] who confirmed pts acceptance. Pt updated and [...] Note Gonzalo Smalls 49 y.o. male CSN: [id number] This is a 49 y.o. male patient was admitted to [facility] with the diagnosis of Diabetic Foot Ulcer, [...] Hayward APRN, [facility]End[facility] is Dr. Garvey in [place], [place]. Medication Education instructions given: The use [...] Prevention , pt reports he has a geodetic technician as well Follow Ups: Provided with educational [...] has been following with urology outpatient at [facility]. They have postulated this to be related [...] the video go to this web address: [email or web address] Or, scan this QR code with your [...] to gently smooth the nail. Have a geodetic technician trim your nails if you can't see [...] remove corns, calluses, or warts by yourself. Mbmx-yec-phujrlr products can burn or damage your skin. [...] your primary care doctor or by a geodetic technician. This is a doctor who specializes in foot care. Some diabetes centers have regular foot clinics. Last Reviewed Date: 2024 00:00:00 ?? [id number] [employer]. All rights reserved. This information is not intended as a substitute for professional medical care. Always follow your healthcare professional's instructions. * Ruy Baires - Vivian Garcia RN - 05/16/2025 11:06 AM EST Images from the original note were not included. [id number] Inspecting Your Feet (Diabetes) Oxvz-ug-Msgm: Last Reviewed Date: 2024 00:00:00 ?? [id number] [employer]. All rights reserved. This information is not [...] -Diabetes education: completed 05/10 -Follow-up plan: home player services representative - Anette Kendall -Tentative discharge recommendations: -pt will need close monitoring by rehab facility provider as changes in diet and activity level maylead to changes in glycemic patterns and insulin requirement NOTE: -patient reports that once the new year hits, he worries about the cost of U500 insulin --> discussed cost through [employer] - should be able to get vials of U500 at $35 per vial. Also discussed contacting [employer] directly for the financial assistance program. -patient [...] team via secure chat orpage us at [phone] during 7a-7p, Thursday-Thursday. For after hours please contact the on-call Endocrine Fellow. Thank you for the opportunity to participate in this patient's care. - Reviewed notes by primary team and consulting services to determine appropriate plan of care as in the note. - Discussed plan and management with patient and canvassing manager Time Spent: I personally spent a total [...] Note Gonzalo Smalls 49 y.o. male CSN: [id number] Room/Bed 117/117A Nutrition evaluation type: follow-up Reason [...] Weight Evaluation: Extreme Obesity (BMI > 40) [place] Body Weight (kg): 80.9 Percent [place] Body Weight: 311 Adjusted Body Weight (kg): [...] Regular Adult Carbohydrate Restriction: Consistent CHO 2 (2339-3001 Steven, 80 g/meal) Adult Sodium Restriction: 2,000 mg Na Percent Meals Eaten (%): 75-100% of meals Diet Experience and Nutrition History: Diet Education Provided: Will monitor Pertinent home medications: Albuterol, Bumex, Insulin, Metformin, Ozempic, Aldactone Bahai needs: Nutrition Focused Physical Exam: Physical exam [...] has been following with urology outpatient at [facility]. They have postulated this to be related to his diabetes and have had several voiding trials which have failed. Also has un dergone proctoscopy (?) which was normal. Started on flomax several weeks PH[employer]ICAL PLANT EMPLOYEE and this has not beenhelpful. and he [...] plan and management with patient. Selin Lee Concrete Boom Pump Operator Division of Hospital Medicine [facility] * Care Plan - Santy Garcia [...] Note Gonzalo Smalls 49 y.o. male CSN: [id number] Admission: 04/27/2025 9:29 PM Primary Problem: Diabetic foot ulcer Anticipated Discharge Date: TBD Pt was referred to many SNF in and out of [place]. Few SNF are considering accepting the pt along with [place] [facility], ph#[phone]. LOLA TOVAR spoke with Araceli- admission at [facility]. Araceli is stating that she is checking if they can order lift needed for the pt and will call back. Team aware. LOLA TOVAR will continue to follow and assist as needed. Chayo Jennings RN * Progress Notes - Aileen Leonardo, SUPERVIS[employer] - 05/15/2025 8:25 AM EST Endocrine - [...] (H) 05/13/2025 I reviewed bg tracing in [facility] glucose timeline 05/15/25 ASSESSMENT Hospital [...] -Diabetes education: completed 05/10 -Follow-up plan: home player services representative - Anette Kendall -Tentative discharge recommendations: -pt will need close monitoring by rehab facility provider as changes in diet and activity level maylead to changes in glycemic patterns and insulin requirement NOTE: -patient reports that once the new year hits, he worries about the cost of U500 insulin --> discussed cost through [employer] - should be able to get vials of U500 at $35 per vial. Also discussed contacting [employer] directly for the financial assistance program. -patient [...] team via secure chat orpage us at [phone] during 7a-7p, Thursday-Thursday. For after hours please [...] mellitus - type 2 -Home medications: CGM: Niche G7 Insulin regimen: U500 insulin: prescription for [...] -Diabetes education: completed 05/10 -Follow-up plan: home player services representative - Anette Kendall -Tentative discharge recommendations: -pt will need close monitoring by rehab facility provider as changes in diet and activity level maylead to changes in glycemic patterns and insulin requirement NOTE: -patient reports that once the new year hits, he worries about the cost of U500 insulin --> discussed cost through [facility] - should be able to get vials of U500 at $35 per vial. Also discussed contacting [employer] directly for the financial assistance program. -patient [...] via secure chat or page us at [phone] during 7a-7p, Thursday-Thursday. For after hours please [...] Ongoing, Progressing Intervention: Promote Activity and Functional [place] Flowsheets Taken 05/14/2025 0946 Self-Care Promotion: independence encouraged BADL personal objects within reach BADL personal routines maintained meal set-up provided Taken 05/14/2025 0800 Activity Assistance Provided: assistance, stand-by assistance, 2 people Taken 05/13/2025 0931 Adaptive Equipment Use: used independently Problem: Self-Care Deficit Goal: Improved Ability to Complete Activities of Daily Living Outcome: Ongoing, Progressing Intervention: Promote Activity and Functional [place] Flowsheets Taken 05/14/2025 0946 Self-Care Promotion: independence [...] has been following with urology outpatient at [facility]. They have postulated this to be related to his diabetes and have had several voiding trials which have failed. Also has un dergone proctoscopy (?) which was normal. Started on flomax several weeks PH[employer]ICAL PLANT EMPLOYEE and this has not beenhelpful. and he [...] plan and management with patient. Selin Lee Concrete Boom Pump Operator Division of Hospital Medicine [facility] * Care Plan - Asiya Nix [...] by Asiya Nxi RN Outcome: Ongoing, Progressing Problem: Mobility Impairment [...] Level Within Target Range 05/13/20252153 by Asiya iNx RN Outcome: Ongoing, Progressing Note: Blood sugar [...] Ongoing, Progressing Intervention: Promote Activity and Functional [place] Flowsheets (Taken 05/13/20251999) Activity Assistance Provided: assistance, [...] (H) 05/11/2025 I reviewed bg tracing in [facility] glucose timeline 05/13/25 ASSESSMENT Hospital [...] -Diabetes education: completed 05/10 -Follow-up plan: home player services representative - Anette Kendall -Tentative discharge recommendations: [...] at $35 per vial. Also discussed contacting [employer] directly for the financial assistance program. -patient [...] via secure chat or page us at [phone] during 7a-7p, Thursday-Thursday. For after hours please [...] Review Outcome: Ongoing, Progressing Flowsheets (Taken 05/13/2025 8847) Progress: improving Plan of Care Reviewed With: [...] Ongoing, Progressing Intervention: Promote Activity and Functional [place] Flowsheets Taken 05/13/2025 0931 Adaptive Equipment Use: [...] has been following with urology outpatient at [facility]. They have postulated this to be related to his diabetes and have had several voiding trials which have failed. Also has un dergone proctoscopy (?) which was normal. Started on flomax several weeks PH[employer]ICAL PLANT EMPLOYEE and this has not beenhelpful. and he [...] plan and management with patient. Selin Lee Concrete Boom Pump Operator Division of [facility] Medicine [facility] * Care Plan - Haritha Lam [...] Ongoing, Progressing Intervention: Promote Activity and Functional [place] Flowsheets (Taken 05/12/20252128) Activity Assistance Provided: assistance, 2 people Self-Care Promotion: independence encouraged BADL personal objects within reach BADL personal routines maintained meal set-up provided * Progress Notes - Max Alexander - 05/12/2025 4:32 PM EDT Case Management Adult Progress Note Gonzalo Smalls 49 y.o. male CSN: [id number] Admission: 04/27/2025 9:29 PM Primary Problem: Diabetic foot ulcer Anticipated Discharge Date: TBD Plan of care reviewed with pt's care team; and per MD, pt is medically ready for discharge pending placement. SW sent 145 Referral via [facility]. SW will continue to follow-up with pt's MD and care team on their progress and discharge plan. Max Alexander, VP CLINICAL RESEARCH, PERCUSSION INSTRUMENT TUNER Senior Edi Programmer/Case Management [facility] * Progress Notes - Selin [...] has been following with urology outpatient at [facility]. They have postulated this to be related to his diabetes and have had several voiding trials which have failed. Also has un dergone proctoscopy (?) which was normal. Started on flomax several weeks PH[employer]ICAL PLANT EMPLOYEE and this has not beenhelpful. and he [...] [facility] labs[facility]als[facility]. Current condition is not [...] plan and management with patient. Selin Lee Concrete Boom Pump Operator Division of Hospital Medicine [facility] * Progress Notes - Lynda Choudhury, SUPERVISOR [employer]OV[employer] - 05/12/2025 12:58 PM EDT Endocrine - [...] (H) 05/10/2025 I reviewed bg tracing in [facility] glucose timeline 05/12/25 ASSESSMENT Hospital [...] -Diabetes education: completed 05/10 -Follow-up plan: home player services representative - Anette Kendall -Tentative discharge recommendations: [...] at $35 per vial. Also discussed contacting [employer] directly for the financial assistance program. -patient [...] via secure chat or page us at [phone] during 7a-7p, Thursday-Thursday. For after hours please [...] 1. Other chronic osteomyelitis of right foot ([facility]) 2. Diabetic foot ulcer with osteomyelitis 3. [...] remission, Anxiety disorder, unspecified, Arthritis, Atrial fibrillation ([facility]), CAP (community [...] understanding. Participants in Care Family/Caregiver Present: No Social Service Liaison: Not Applicable Presentation Oxygen Therapy: Supplemental oxygen [...] of Function Receives Help From: Spouse Mobility [place]: Independent gait with device ADL Performance: Needs assistance Bathing: Needs assist Upper Body Dressing: Needs assist Lower Body Dressing: Needs assist Grooming: Needs assist Toileting: Independent Eating: Independent Home Management Skills: Needs assist Patient/Family Goals [facility] Objective Pain Pt reported [...] Mobility Bed Mobility Exam: Scooting/Bridging Level of [place]: Contact guard (scooting hips forward to edge of bed) Physical/Nonphysical Assist: Verbal Cues, Minimal cues Assistive Device: Overhead trapeze Bed Mobility Exam: Supine to Sit Level of [place]: Minimum assist (75% patient's effort) Physical/Nonphysical Assist: HOB elevated, Verbal Cues Assistive Device: Overhead trapeze Bed Mobility Exam: Sit to Supine Level of [place]: Stand-by assist Physical/Nonphysical Assist: Verbal Cues, Minimal cues Assistive Device: Overhead trapeze Transfers Transfer Exam: Sit to stand Level of [place]: Maximum assist (25% patient's effort) (x3 reps from edge of bed, good adherence to NWB RLE) Physical/Nonphysical Assist: Verbal Cues, Nonverbal cues (demo/gestures), Additional assist utilized for safety Assistive Device: Walker, rolling (bariatric) Transfer Exam: Stand to Sit Level of [place]: Maximum assist (25% patient's effort) Physical/Nonphysical Assist: [...] point. Dizziness was improved with time and with acclimating to upright position. Pt's gaze also observed and demonstrating no nystagmus during changes in position. During sit to stand transfers, PT provided mod verbal and tactile cues for scooting legs back to improve base of support and body mechanics, anteriorly scooting to position center ofgravity over base of support, placing hands on stable surfaces to improve safety, using momentum strategy for standing, and proper use of assistive device for support. Pt aware of NWB status and baleto maintain NWB for 3 stands. Once standing [...] climbing 3-5 steps with a railing?: Unable [facility] 6-Clicks Mobility Assessment Total : [...] session. Participants in Care Family/Caregiver Present: No Social Service Liaison: Not Applicable Presentation Oxygen Therapy: Supplemental oxygen [...] of Function Receives Help From: Spouse Mobility [place]: Independent gait with device ADL Performance: Needs [...] Mobility Bed Mobility Exam: Scooting/Bridging Level of [place]: Contact guard (scooting hips forward to edge of bed) Physical/Nonphysical Assist: Verbal Cues, Minimal cues Bed Mobility Exam: Supine to Sit Level of [place]: Minimum assist (75% patient's effort) Physical/Nonphysical Assist: HOB elevated, Verbal Cues Assistive Device: Overhead trapeze Bed Mobility Exam: Sit to Supine Level of [place]: Stand-by assist Physical/Nonphysical Assist: Verbal Cues, Minimal cues Assistive Device: Overhead trapeze Transfers Transfer Exam: Sit to stand Level of [place]: Maximum assist (25% patient's effort) (x3 reps from edge of bed, good adherence to NWB RLE) Physical/Nonphysical Assist: Verbal Cues, Nonverbal cues (demo/gestures), Additional assist utilized for safety Assistive Device: Walker, rolling (bariatric) Transfer Exam: Stand to Sit Level of [place]: Maximum assist (25% patient's effort) Physical/Nonphysical Assist: [...] upper extremity support, Left upper extremity support ([facility] RW) Static Standing-Level of Assistance: Maximum assistance [...] reps of sit to stand to [facility] with max Ax2 persons each [...] Where Assessed: Other (Comment) (in stance at [facility] RW level) Toileting Interventions: Pt with small incontinent BM, required dep A for hygiene to buttocks in stance at [facility] RW level with assistance from 2nd person [...] a helper. 5 Set-up or Clean-up Assistance [place] sets up or cleans up; patient completes activity. [place] assists only prior to or following the activity. 4 Supervision or touching assistance [place] provides verbal cues and/or touching/steadying and/or contact guard assistance as patient completes activity. Assistance may be provided throughout the activity or intermittently. 3 Partial/Moderate Assistance [place] does LESS THAN HALF the effort. [place] lifts, holds or supports trunk or limbs, but provides less than half the effort. 2 Substantial/Maximal Assistance [place] does MORE THAN HALF the effort. [place] lifts or holds trunkor limbs and provides more than half the effort. 1 Dependent [place] does ALL of the effort. Patient does [...] Note Gonzalo Smalls 49 y.o. male CSN: [id number] Admission: 04/27/2025 9:29 PM Primary Problem: Diabetic foot ulcer Anticipated Discharge Date: TBD RN CM informed by bedside RN that pt's weight was obtained and current weight is 244.3kg (538.5 lbs)- due to pt being over 500 lbs [facility] is not able to accept the [...] Note Gonzalo Smalls 49 y.o. male CSN: [id number] Admission: 04/27/2025 9:29 PM Primary Problem: Diabetic foot ulcer Anticipated Discharge Date: TBD LOLA TOVAR f/ u with Suze- admission at [facility]. Suze is stating that they might [...] BG 199 -04/30: 173-226, TDD 114 units -10/20: 222-316, TDD 133 units -05/02: 250-358, TDD [...] mellitus - type 2 -Home medications: CGM: Niche G7 Insulin regimen: U500 insulin: prescription for [...] -Diabetes education: completed 05/10 -Follow-up plan: home player services representative - Anette Kendall -Tentative discharge recommendations: -pt will need close monitoring by rehab facility provider as changes in diet and activity level maylead to changes in glycemic patterns and insulin requirement NOTE: -patient reports that once the new year hits, he worries about the cost of U500 insulin --> discussed cost through [employer] - should be able to get vials of U500 at $35 per vial. Also discussed contacting [employer] directly for the financial assistance program. -patient [...] via secure chat or page us at [phone] during -7p, Thursday-Thursday. For after hours please [...] has been following with urology outpatient at [facility]. They have postulated this to be related to his diabetes and have had several voiding trials which have failed. Also has un dergone proctoscopy (?) which was normal. Started on flomax several weeks [employer] and this has not beenhelpful. and he [...] plan and management with patient. Selin Lee [employer] Operator Division of [facility] Medicine [facility] * Care Plan - Haritha Lam [...] has been following with urology outpatient at [facility]. They have postulated this to be related to his diabetes and have had several voiding trials which have failed. Also has un dergone proctoscopy (?) which was normal. Started on flomax several weeks [employer] and this has not beenhelpful. and he [...] FULL CODE Medically Ready for Discharge:Ready now, [facility] denied admission, referral sent for [facility] I have independently reviewed and interpreted the labs, vitals, [facility]. Current condition is not at [...] plan and management with patient. Selin Lee [employer] Operator Division of Hospital Medicine [facility] * Progress Notes - Chayo Jennings RN - 05/10/2025 8:59 AM EDT Case Management Adult Progress Note Gonzalo Smalls 49 y.o. male CSN: [id number] Admission: 04/27/2025 9:29 PM Primary Problem: Diabetic foot ulcer Anticipated Discharge Date: TBD LOLA CM f/u on [facility] referral and was told that [facility] physician declined pt's acceptance to [facility]. RN CMvisited with the pt this morning [...] (H) 05/08/2025 I reviewed bg tracing in [facility] glucose timeline 05/10/25 ASSESSMENT Hospital Course: Gonzalo [...] mellitus - type 2 -Home medications: CGM: [employer] G7 Insulin regimen: U500 insulin: prescription for [...] -Diabetes education: completed 05/10 -Follow-up plan: home player services representative - Anette Kendall -Tentative discharge recommendations: [...] at $35 per vial. Also discussed contacting [employer] directly for the financial assistance program. -patient [...] Adult Inpatient Diabetes team via secure chat [employer] us at [phone] during 7a-7p, Thursday-Thursday. For after hours please [...] Intervention: Promote Wound Healing Flowsheets (Taken 05/10/2025 8785) Sleep/Rest Enhancement: consistent schedule promoted natural light [...] Intervention: Optimize Skin Protection Flowsheets Taken 05/08/2025 204 by Checo Monson Activity Management: activity adjusted [...] sit <> stand transfers Visitors Present none Social Service Liaison (if applicable) N/a OBJECTIVE PAIN Pt endorses [...] Mobility Bed Mobility Exam: Scooting/Bridging Level of [place]: Stand-by assist Physical/Nonphysical Assist: Verbal Cues, Minimal cues Assistive Device: Overhead trapeze Bed Mobility Exam: Supine to Sit Level of [place]: Stand-by assist Physical/Nonphysical Assist: Verbal Cues, Minimal cues, HOB elevated Assistive Device: Overhead trapeze Bed Mobility Exam: Sit to Supine Level of [place]: Stand-by assist Physical/Nonphysical Assist: Verbal Cues, Minimal cues Assistive Device: Overhead trapeze Transfers Transfer Exam: Sit to stand Level of [place]: Maximum assist (25% patient's effort) Physical/Nonphysical Assist: Set-up required, Additional assist utilized for safety, Maximal cues, Verbal Cues, Nonverbal cues (demo/gestures) Assistive Device: Hand held assist Transfer Exam: Stand to Sit Level of [place]: Maximum assist (25% patient's effort) Physical/Nonphysical Assist: [...] session Participants in Care Family/Caregiver Present: No Social Service Liaison: Not Applicable Presentation Oxygen Therapy: Supplemental oxygen [...] sequencing Bed Mobility Exam: Scooting/Bridging Level of [place]: Stand-by assist Physical/Nonphysical Assist: Verbal Cues, Minimal cues Assistive Device: Overhead trapeze Bed Mobility Exam: Supine to Sit Level of [place]: Stand-by assist Physical/Nonphysical Assist: Verbal Cues, Minimal cues, HOB elevated Assistive Device: Overhead trapeze Bed Mobility Exam: Sit to Supine Level of [place]: Stand-by assist Physical/Nonphysical Assist: Verbal Cues, Minimal [...] placement, sequencing, weight shifting, appropriate use of VENDING MACHINE HOST/HOSTESS, and maintaining NWB on LLE. Tactile cues provided to assist in sequencing and weight shifting. Transfer Exam: Sit to stand Level of [place]: Maximum assist (25% patient's effort) Physical/Nonphysical Assist: Set-up required, Additional assist utilized for safety, Maximal cues, Verbal Cues, Nonverbal cues (demo/gestures) Assistive Device: Hand held assist Transfer Exam: Stand to Sit Level of [place]: Maximum assist (25% patient's effort) Physical/Nonphysical Assist: [...] assistance Static Standing - Interventions: Standing w VENDING MACHINE HOST/HOSTESS Therapeutic Activity (40 minutes) See bed mobility, balance, and transfers sections for more detail. Standardized Assessments [facility] 6-Clicks Mobility Assessment Difficulty patient [...] climbing 3-5 steps with a railing?: Unable [facility] 6-Clicks Mobility Assessment Total : [...] Note Gonzalo Smalls 49 y.o. male CSN: [id number] Room/Bed 117/117A Nutrition evaluation type: follow-up Reason [...] Supplemental oxygen O2 Delivery Method: Nasal cannula [place] Scale Score: 15 Miguel Ángel Scale [...] Weight Evaluation: Extreme Obesity (BMI > 40) [place] Body Weight (kg): 80.9 Percent [place] Body Weight: 311 Adjusted Body Weight (kg): [...] Regular Adult Carbohydrate Restriction: Consistent CHO 2 ([id number] Steven, 80 g/meal) Adult Sodium Restriction: 2,000 mg Na Percent Meals Eaten (%): 100% of meals Diet Experience and Nutrition History: Diet Education Provided: Will monitor Pertinent home medications: Albuterol, Bumex, Insulin, Metformin, Ozempic, Aldactone Bahai needs: Nutrition Focused Physical Exam: Physical exam [...] u-500 if she comes to visit today. Brandon did indicate that most patients that utilize [...] continue to assess need -Follow-up plan: home player services representative - Anette Kendall -Tentative discharge recommendations: [...] via secure chat or page us at [phone] during 7a-7p, Thursday-Thursday. For after hours please [...] has been following with urology outpatient at [facility]. They have postulated this to be related to his diabetes and have had several voiding trials which have failed. Also has un dergone proctoscopy (?) which was normal. Started on flomax several weeks [employer] and this has not beenhelpful. and he [...] Ready for Discharge:Ready now, awaiting placement to [facility] Selin Lee [employer] Operator Division of Hospital Medicine [facility] * Care Plan - Checo Monson [...] Saldana Progress: improving Taken 05/07/20251999 by Judd Zavaleta, RN Plan of Care Reviewed With: patient [...] mellitus - type 2 -Home medications: CGM: Niche G7 Insulin regimen: U500 insulin: prescription for [...] continue to assess need -Follow-up plan: home player services representative - Anette Kendall -Tentative discharge recommendations: [...] via secure chat or page us at [phone] during 7a-7p, Thursday-Thursday. For after hours please [...] Promote Wound Healing Flowsheets (Taken 05/07/20251999 by uJdd Zavaleta RN) Sleep/Rest Enhancement: noise level reduced regular sleep/rest pattern promoted relaxation techniques promoted room darkened awakenings minimized Problem: Pain Acute Goal: Optimal Pain Control and Function Outcome: Ongoing, Progressing * Progress Notes - Mayra Apodaca RN - 05/08/2025 1:40 PM EDT Case Management Adult Progress Note Gonzalo Smalls 49 y.o. male CSN: [id number] Admission: 04/27/2025 9:29 PM Primary Problem: Diabetic [...] recs, cont wound vac Patient evaluated by [facility] nurse, individualized recommendations placed and care [...] 05/08/2025 10:19 AM Wound Image Wound Assessment [place];Red (moist) Margins Well-defined edges Saba-Wound Assessment Intact [...] the video go to this web address: https://bit.[email or web address] Or, scan this QR code with your smart phone ?? [facility] * Thi Chavarria RN - 05/08/2025 10:55 AM EDT Images from the original note were not included. Type 2 diabetes: 7 Ways to Prevent Building Maintenance Supervisor Complications - Video Watch this video to [...] the video go to this web address: https://bit.ly/[email or web address] Or, scan this QR code with your [...] to gently smooth the nail. Have a geodetic technician trim your nails if you can't see [...] remove corns, calluses, or warts by yourself. Axkr-wbx-xwiclme products can burn or damage your skin. [...] your primary care doctor or by a geodetic technician. This is a doctor who specializes in foot care. Some diabetes centers have regular foot clinics. Last Reviewed Date: 2024 00:00:00 ?? [id number] [employer]. All rights reserved. This information is not [...] the video go to this web address: [email or web address] Or, scan this QR code with your smart phone ?? [facility] * Consults - Beatriz Hu DO - 05/08/2025 8:38 AM EDTAssociated Order(s): Inpatient consult to Urology Inpatient consult to Urology Consult performed by: Beatriz Hu DO Consult ordered by: Diane Guzman MD [facility] Urology Consult Note 05/08/25 Service Requesting Consultation: Hospital Medicine CC: urinary retention HPI: Gonzalo Smalls is a 49 y.o. male with a past urologic history of urinary retention, recurrent UTIs,BPH, morbid obesity who presented to [facility] ED with diabetic foot ulcer. [...] After this he presented to an [facility] urologist Dr. Painting who stated to [...] (NEURONTIN) 600 mg, 3 times daily HYDROcodone-acetaminophen ([place]) 10-325 MG tablet 1 tablet, Every 6 hours PRN Insulin Pen Needle (Pen [place]) 31G X 5 MM [facility] USE TO INJECT INSULIN 3 TIMES PER [...] obesity and uncontrolled diabetes who presented to [facility] ED with diabetic foot ulcer. [...] After this he presented to an [facility] urologist Dr. Painting who stated to [...] care with a Dr. Mendenhall an [facility] urologist as this is closer to [...] care with a Dr. Mendenhall an [facility] urologist as this is closer to [...] has been following with urology outpatient at [facility]. They have postulated this to be related to his diabetes and have had several voiding trials which have failed. Also has un dergone proctoscopy (?) which was normal. Started on flomax several weeks [employer] and this has not beenhelpful. and he [...] Mobility Bed Mobility Exam: Scooting/Bridging Level of [place]: Stand-by assist Physical/Nonphysical Assist: Verbal Cues Bed Mobility Exam: Supine to Sit Level of [place]: Contact guard Physical/Nonphysical Assist: Set-up required, Verbal Cues, Minimal cues Bed Mobility Exam: Sit to Supine Level of [place]: Minimum assist (75% patient's effort) Physical/Nonphysical Assist: Set-up required, Verbal Cues, Minimal cues Transfers Transfer Exam: Sit to stand Level of [place]: (Pt attempted with use of bariatric RW; [...] return to supine. Therapeutic Exercise Access Code: [email or web address] HEP printed and pt received copy with [...] provided based on observable deficits.* Level of [place] Interventions Grooming Patient demo's adequate BUE strength/ROM [...] tasks for toileting routine including transition to [facility] with CGA in prep for BSC [...] maintain WB status. FUNCTIONAL MOBILITY Level of [place] Physical/Non-physical Assist Adaptive Equipment Utilized Scooting/ Bridging [...] Appearance Posture: Within Functional Limits Level of [place] Balance Support Static Sit Standby assist Feet supported Dynamic Sit Standby assisst Feet supported THERAPEUTIC EXERCISE INTERVENTIONS (10 minutes) Treatment Details The patient was educated re: implementation of BUE HEP in order to target muscle groups necessary for functional mobility and ADL independence. HEP printed and each exercise reviewed, pt verbalized understanding. [employer] Access Details (if appropriate) Access Code: [email or web address] URL: [email or web address] Date: 05/07/25 Exercises Included - Seated Elbow [...] has been following with urology outpatient at [facility]. They have postulated this to be related to his diabetes and have had several voiding trials which have failed. Also has un dergone proctoscopy (?) which was normal. Started on flomax several weeks [employer] and this has not beenhelpful. and he [...] now * Progress Notes - Aileen Leonardo, SUPERVISOR [employer] REMOVAL - 05/07/2025 7:33 AM EDT Endocrine - [...] continue to assess need -Follow-up plan: home player services representative - Anette Kendall -Tentative discharge recommendations: [...] team via secure chat orpage us at [phone] during 7a-7p, Thursday-Thursday. For after hours please [...] has been following with urology outpatient at [facility]. They have postulated this to be related to his diabetes and have had several voiding trials which have failed. Also has un dergone proctoscopy (?) which was normal. Started on flomax several weeks [employer] EM[employer] and this has not beenhelpful. and he [...] now * Progress Notes - Aileen Leonardo, ADALGISA - 05/06/2025 7:46 AM EDT Endocrine - [...] mellitus - type 2 -Home medications: CGM: Niche G7 Insulin regimen: U500 insulin: prescription for [...] continue to assess need -Follow-up plan: home player services representative - Anette Kendall -Tentative discharge recommendations: [...] team via secure chat orpage us at [phone] during 7a-7p, Thursday-Thursday. For after hours please [...] is in abx, has his CHG and [place] wipes done in this shift Problem: Mobility [...] vascular surgery; wound vac applied 05/[address] [facility] Wound Assessment: Wound 05/01/25 Surgical Toe (Comment which one) Anterior;Right (Active) Date First Assessed/Time First Assessed: 05/01/25 0805 Present on Original Admission: No Hand Hygiene Completed: Yes Primary Wound Type: Surgical Location: Toe (Comment which one) Wound Location Orientation: Anterior;Right Assessments 05/05/2025 11:44 AM Wound Image Wound Assessment [place];Red (moist , full thickness) Margins Well-defined edges [...] no orders noted for wound vac, maessaged [facility] team for guidance. Orders placedfor [...] wound vac in use Patient evaluated by [facility] nurse, individualized recommendations placed and care plan interventions updated; see wound care note for details regarding recommendations to support optimal wound healing. * Progress Notes - Mayra Apodaca RN - 05/05/2025 12:30 PM EDT Case Management Adult Progress Note Gonzalo Smalls 49 y.o. male CSN: [id number] Admission: 04/27/2025 9:29 PM Primary Problem: Diabetic [...] No MDRO isolated 04/27/25 Blood culture NGTD [facility] Culture Data: - 04/25/25: Blood culture NGTD [...] pathology. Patient is planned to discharge to [facility]. Recommend close follow-up with vascular surgery and [...] PA-C Division of Infectious Diseases Available by [employer] History, assessment, and plan discussed with ID [...] mL 125 mL Intravenous q15 min PRN Oo, Yadana, MD Or dextrose 10 % (D10W) bolus [...] Units Subcutaneous BID PRN Sarah Martinez P, SUPERVISOR [employer] REMOVAL insulin NPH (Isophane) (HumuLIN N,NovoLIN N) injection [...] (H) 05/03/2025 I reviewed bg tracing in [facility] glucose timeline 05/05/25 ASSESSMENT Hospital [...] for recurrent UTI and has a chronic Barbre. Per chart review it appears that the [...] mellitus - type 2 -Home medications: CGM: Niche G7 Insulin regimen: U500 insulin: prescription for [...] via secure chat or page us at [phone] during -7p, Thursday-Thursday. For after hours please [...] precautions. Bed Mobility Exam: Rolling/Turning Level of [place]: Contact guard Physical/Nonphysical Assist: Verbal Cues, Moderate cues Bed Mobility Exam: Scooting/Bridging Level of [place]: Stand-by assist Bed Mobility Exam: Supine to Sit Level of [place]: Contact guard Physical/Nonphysical Assist: Verbal Cues Bed Mobility Exam: Sit to Supine Level of [place]: Stand-by assist Patient performed rolling bilaterally for placement of lift pad. Transfers Transfer Exam: Sit to stand Level of [place]: (Patient unable to perform without engaging right [...] promote tempo and full ROM. Standardized Assessments [facility] 6-Clicks Mobility Assessment Difficulty patient [...] climbing 3-5 steps with a railing?: Unable [facility] 6-Clicks Mobility Assessment Total : [...] help from Spouse Level of Mobility Mobility [place] History of Falls ADL Performance Needs assistance [...] to therapy this date. Visitors Present No Social Service Liaison (if applicable) OBJECTIVE PAIN Pain Score (0-10): [...] sba for bed mobility tasks. Level of [place] Adaptive Equipment Utilized Comments Feeding Grooming Setup washing face/hands Bathing Upper Body Dressing Lower Body Dressing Shoe Level of Assistance: Dependent Toileting IADLs Health Management Community Re-Entry BALANCE Postural Appearance INTERVENTIONS Level of [place] Balance Support Comments Static Sit Standby assist [...] weight shifting to promote safety. Level of [place] Physical/Non-physical Assist Adaptive Equipment Utilized Rolling/ Turning [...] No MDRO isolated 04/27/25 Blood culture NGTD [facility] Culture Data: - 04/25/25: Blood culture NGTD [...] PA-C Division of Infectious Diseases Available by [employer] Chat History, assessment, and plan discussed with [...] tablet 5 mg 5 mg Oral BID OMarjorie weaver MD 5 mg at 05/03/252043 bumetanide (Bumex) tablet 4 mg 4 mg Oral TID Marjorie Myers MD 4 mg at 05/03/252038 cariprazine (Vraylar) capsule 3 mg 3 mg Oral Daily Marjorie Myers MD 3 mg at 05/03/25 0923 cefepime (Maxipime) 2 g in sodium chloride 0.9% 100 mL IVPB (vial adapter required) 2 g [id number] Diane Guzman MD 36.7 mL/hr at 05/03/25 [...] Daily OMarjorie weaver MD 120 mg at gabapentin (Neurontin) capsule 600 mg 600 mg Oral TID OMarjorie weaver MD 600 mg at 05/03/252038 insulin lispro [...] Units Subcutaneous BID PRN Sarah Martinez P, SUPERVISOR [employer]OV[employer] insulin NPH (Isophane) (HumuLIN N,NovoLIN N) injection 50 Units 50 Units Subcutaneous BID Sarah Martinez SUPERVISOR [employer] REMOVAL 50 Units at 05/03/252043 ipratropium-albuterol (Duo-Neb) 0.5-2.5 [...] (H) 05/02/2025 I reviewed bg tracing in [facility] glucose timeline 05/04/25 ASSESSMENT Hospital [...] mellitus - type 2 -Home medications: CGM: Niche G7 Insulin regimen: U500 insulin: prescription for [...] continue to assess need -Follow-up plan: home player services representative - Anette Kendall -Tentative discharge recommendations: [...] team via secure chat orpage us at [phone] during 7a-7p, Thursday-Thursday. For after hours please [...] from the original note were not included. [facility] Department of Surgery Division of Vascular Surgery 05/03/25 Gonzalo Yehuda Drew Subjective Subjective: HPI Gonzalo Yehuda Smalls is an 49 y.o. male admitted [...] an 49 y.o. male who presented to [facility] 04/27/2025 with diabetic foot ulcer now s/pamputation [...] Note Gonzalo Smalls 49 y.o. male CSN: [id number] Admission: 04/27/2025 9:29 PM Primary Problem: Diabetic [...] No MDRO isolated 04/27/25 Blood culture NGTD [facility] Culture Data: - 04/25/25: Blood culture NGTD [...] PA-C Division of Infectious Diseases Available by [employer] History, assessment, and plan discussed with ID [...] 120 mg 120 mg Oral Daily Marjorie Myres MD 120 mg at 1 gabapentin (Neurontin) capsule 600 mg 600 mg [...] Units Subcutaneous TID with meals Sarah Martinez, SUPERVISOR [employer]OVAL 30 Units at 05/03/25 0920 Insulin Lispro (Admelog, HumaLOG) 100 UNIT/ML injection 6 Units 6 Units Subcutaneous BID PRN Sarah Martinez P, SUPERVISOR [employer]OVAL insulin NPH (Isophane) (HumuLIN N,NovoLIN N) injection 42 Units 42 Units Subcutaneous BID Sarah Martinez SUPERVISOR [employer] REMOVAL 42 Units at 05/03/25 0919 ipratropium-albuterol (Duo-Neb) [...] 10 mL 10 mL Intravenous PRN Marjorie Myesr MD spironolactone (Aldactone) tablet 100 mg 100 [...] Days * Progress Notes - Sarah Martinez, SUPERVISOR [employer]BE[employer] REMOVAL - 05/03/2025 7:55 AM EDT Endocrine - [...] continue to assess need -Follow-up plan: home player services representative - Anette Kendall -Tentative discharge recommendations: [...] via secure chat or page us at [phone] during 7a-7p, Thursday-Thursday. For after hours please [...] from the original note were not included. [facility] Department of Surgery Division of Vascular Surgery [...] Optimize Mobility Flowsheets Taken 05/02/20251819 by Santy Garcia RN [...] degrees Note: See recs Patient evaluated by [facility] nurse, individualized recommendations placed and care [...] No MDRO isolated 04/27/25 Blood culture NGTD [facility] Culture Data: - 04/25/25: Blood culture NGTD [...] PA-C Division of Infectious Diseases Available by Lumier History, assessment, and plan discussed with ID [...] Units 24 Units Subcutaneous TID with meals aSrah Martinez APRN 24 Units at 05/02/25 0912 insulin NPH (Isophane) (HumuLIN N,NovoLIN N) injection 42 Units 42 Units Subcutaneous BID Sarah Martinez, SUPERVISOR [employer]BE[employer] REMOVAL ipratropium-albuterol (Duo-Neb) 0.5-2.5 mg/3 mL nebulizer solution [...] Note Gonzalo Smalls 49 y.o. male CSN: [id number] Room/Bed 117/117A Nutrition evaluation type: assessment Reason [...] at bedside. 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 No known unintentional weight changes, UBW 570#. [...] Weight Evaluation: Extreme Obesity (BMI > 40) [place] Body Weight (kg): 80.9 Percent [place] Body Weight: 311 Adjusted Body Weight (kg): [...] Regular Adult Carbohydrate Restriction: Consistent CHO 1 (9261-0036 Steven, 65 g/meal) Adult Sodium Restriction: 2,000 mg Na Percent Meals Eaten (%): 68% avg x 5 meals Diet Experience and Nutrition History: Diet Education Provided: Will monitor Pertinent home medications: Albuterol, Bumex, Insulin, Metformin, Ozempic, Aldactone Bahai needs: Nutrition Focused Physical Exam: Physical exam [...] from the original note were not included. [facility] Department of Surgery Division of Vascular Surgery [...] by Drain (mL) 04/30/25 07 - 04/30/25 18504/30/25 1900 - 05/01/25 0659 05/01/25 07 - [...] snacking overnight while watching the games including [employer], goldfish, ritz crackers and other snacks -no [...] treatment -plan and management discussed with patient, canvassing manager, bedside RN NOTE: -Patient utilizes U500 insulin pen at home. With the U500 pen, a conversion is not needed. Typically patient's required a 70% reduction in home U500 dosing. 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: home player services representative - Anette Kendall -Tentative discharge recommendations: [...] via secure chat or page us at [phone] during 7a-7p, Thursday-Michelet. For after hours please contact the on-call [...] Note Gonzalo Smalls 49 y.o. male CSN: [id number] Admission: 04/27/2025 9:29 PM Primary Problem: Diabetic [...] from the original note were not included. [facility] Department of Surgery Division of Vascular Surgery [...] nursing staff. I have notified senior resident/attending siphoner with any issues or concerns. Leidy Velasco [...] bony pathology, duration TBD - Will contact [facility] tomorrow to check on urine culture results - Please obtain adult ID screening labs: Hep A IgG, Hep B sAb, Hep B sAg, and Hep B total core Ab - Plan of care and recommendations discussed with patient's primary provider Thank you for allowing us to participate in this patient's care. ID will follow. Janelle Phan PA-C Division of Infectious Diseases Available by Lumier History, assessment, and plan discussed with ID [...] PRN yS De La Fuente APRN, DNP [Transfer [...] mcg/mL infusion Intravenous PRN Muzic, Og A, MACHINE CRATER 8 mcg at 05/01/25 0841 fentaNYL (Sublimaze) injection Intravenous PRN Muzic, Og A, MACHINE CRATER 25 mcg at 05/01/25 0826 lactated Ringer's infusion Intravenous Continuous PRN Muzic, Og A, MACHINE CRATER New Bag at 05/01/25 4207 midazolam (Versed) injection Intravenous PRN Og Shah CRNA 1 mg at 05/01/25 5448 [2] Allergies Allergen Reactions Vancomycin Other - [...] continue to assess need -Follow-up plan: home player services representative - Anette Kendall -Tentative discharge recommendations: [...] team via secure chat orpage us at [phone] during 7a-7p, Thursday-Thursday. For after hours please [...] AM EDT Operative Note Date: 05/01/25 Location: [place] Name: Gonzalo Smalls, : 1975, Diagnoses: Pre-op Diagnosis Other chronic osteomyelitis of right foot (CMS/HCC) Post-op Diagnosis Other chronic osteomyelitis of right foot (CMS/HCC) Procedure(s): Right 5th toe ray amputation Attending Surgeon(s): * Mary Vicente - Primary Accounting Clerks Supervisor(s): * Paula Martinez MD - Resident [...] daily #Morbid Obesity - failed gastric sleeve, [place], BMI 81.99, complicates all aspects of care [...] kg/m?? Labs and medications reviewed. Blood glucose [id number] Medications: Current Scheduled Medications[1] Current Continuous Medications[2] [...] continue to assess need -Follow-up plan: home player services representative - Anette Kendall -Tentative discharge recommendations: [...] PGY-4 Division of Endocrinology, Diabetes and Metabolism [facility] Medically Ready for Discharge: [1] [...] from the original note were not included. [facility] Department of Surgery Division of Vascular Surgery [...] Edited by: Alejandra Arndt MD at 04/30/2025 5781 Review of Systems: Relevant review of systems [...] days Lab Units 04/30/25 03104/29/25 03004/27/25 2137 HEMOGLOBIN g/dL 9.6* 9.4* 10.4* [...] night, recurrent UTIswho presented to [facility] with nonhealing right foot wound. [...] kg/m?? Labs and medications reviewed. Blood glucose [id number] [id number] Medications: Current Scheduled Medications[1] Current Continuous [...] continue to assess need -Follow-up plan: home player services representative - Anette Kendall -Tentative discharge recommendations: [...] PGY-4 Division of Endocrinology, Diabetes and Metabolism [facility] [1] atorvastatin, 40 mg, Oral, [...] Glucose and Insulin Total Daily Dose -consulted 10/17 AM BG 199 -A1c: Lab Results Component [...] continue to assess need -Follow-up plan: home player services representative - Anette Kendall -Tentative discharge recommendations: [...] team via secure chat orpage us at [phone] during 7a-7p, Thursday-Thursday. For after hours please [...] Case Management Adult Initial Progress Note Gonzalo Blakcman Drew 49 y.o. male CSN: [id number] Admission: 04/27/2025 9:29 PM Primary Problem: Diabetic foot ulcer Rn Orthopaedic reviewed chart and spoke with patient at bedside to complete this Initial Case Management Assessment. PCP: Malcolm Hayward APRN Emergency Contact: Extended Emergency Contact Information Primary Emergency Contact: Maggie Smalls Mobile Relation: Spouse Preferred language: Kazakh Social Service Liaison needed? No Insurance: Primary Visit Coverage Payer Plan Sponsor Code Group Number Group Name MARIA DGEE THIAGO SOTOMAYOR/[facility] [id number] Seventymm Primary Visit Coverage Subscriber Subscriber ID Subscriber Name Subscriber [facility] Subscriber Address [id number] GONZALO SMALLS [id number] [address] [id number] Secondary Visit Coverage Payer Plan Sponsor Code Group Number Group Name MEDICARE MEDICARE A & B Secondary Visit Coverage Subscriber Subscriber ID Subscriber Name Subscriber [facility] Subscriber Address [id number] GONZALO SMALLS [id number] [address], [place] [address] Patient information: Primary Caregiver: Self Support System: Immediate family Daily Living Activities: Functional Status: Minimum assistance Living Arrangements: Spouse/Significant other, Children (daughter) Type of Residence: Private residence, Single Level ([address]) [address] [address] Smoker in the Home?: No Current DME: [...] line dressing changes Living Will/Advance Directive/Power of Crowd Controller /Guardian: None Additional Comments: Patient admitted for [...] from the original note were not included. [facility] Department of Surgery Division of Vascular Surgery [...] night, recurrent UTIs who presented to the [facility] on 04/27/2025 with right foot wound. [...] file Social Connections: Unknown (04/24/2023) Received from [facility] Family and Community Support Help with Day-to-Day [...] History Administered Date(s) Administered Moderna COVID-19 Vaccine (Janitor Custodian) 12+ years 01/25/2021, 02/22/2021 Pneumococcal Conjugate PCV [...] a day. 09/05/21 Yes Provider, Historical HYDROcodone-acetaminophen (Freeport) 10-325 MG tablet Take 1 tablet by [...] Yes Provider, Historical Insulin Pen Needle (Pen Groesbeck) 31G X 5 MM misc USE TO [...] night, recurrent UTIswho presented to [facility] with nonhealing right foot wound. [...] La Fuente APRN, DNP 150 mgat 04/28/25 0881 Current Outpatient Medications [...] by mouth 3 times a day. HYDROcodone-acetaminophen (Freeport) 10-325 MG tablet Take 1 tablet by [...] by mouth daily. Insulin Pen Needle (Pen Groesbeck) 31G X 5 MM misc USE TO [...] [X] Family [ ] Friend [ ] Social Service Liaison [X] Medical records HISTORY OF PRESENT ILLNESS: [...] and was treated in theemergency department at [facility] a few days ago where a PICC [...] in the ED 2-3 days ago at [facility]. I contacted OSH who report blood cultures [...] a day. 09/05/21 Yes Provider, Historical HYDROcodone-acetaminophen (Freeport) 10-325 MG tablet Take 1 tablet by [...] Yes Provider, Historical Insulin Pen Needle (Pen Groesbeck) 31G X 5 MM misc USE TO [...] Will follow-up blood and urine cultures from [facility] for further ID/susceptibilities, obtained 04/25 - Please obtain adult ID screening labs: Hep A IgG, Hep B sAb, Hep B sAg, and Hep B total core Ab - Plan of care and recommendations discussed with patient's primary provider Thank you for allowing us to participate in this patient's care. ID will follow. Janelle Phan PA-C Division of Infectious Diseases Available by Lumier History, assessment, and plan discussed with ID [...] La Fuente APRN, DENISE 150 mgat 04/28/25 6598 Current Outpatient Medications Medication Sig Dispense Refill [...] by mouth 3 times a day. HYDROcodone-acetaminophen (Freeport) 10-325 MG tablet Take 1 tablet by [...] by mouth daily. Insulin Pen Needle (Pen Groesbeck) 31G X 5 MM misc USE TO [...] back pain 04/22/2019 Hypertension 02/18/2019 Morbid obesity ([facility]) 12/24/2016 Procedures Past Medical History Patient has a past medical history of Acute kidney injury (05/19/2024), Alcohol abuse, in remission, Anxiety disorder, unspecified, Arthritis, Atrial fibrillation ([facility]), CAP (community [...] in Care Family/Caregiver Present: Yes Family/Caregiver: Spouse Social Service Liaison: Not Applicable Presentation Oxygen Therapy: None (Room [...] Needs assist Patient/Family Goals Return home at [facility]. Objective Pain Pt reports [...] pain. Bed Mobility Exam: Rolling/Turning Level of [place]: Maximum assist (25% patient effort) Physical/Nonphysical Assist: Verbal Cues, Moderate cues Assistive Device: Bed rails, Other (VENDING MACHINE HOST/HOSTESS) Bed Mobility Exam: Scooting/Bridging Level of [place]: Maximum assist (25% patient's effort) (up in bed; Lester forward at EOB) Physical/Nonphysical Assist: Verbal Cues, Moderate cues Assistive Device: Bed rails Bed Mobility Exam: Supine to Sit Level of [place]: Maximum assist (25% patient's effort) Physical/Nonphysical Assist: Verbal Cues, Moderate cues, Set-up required, Additional assist utilized for safety Assistive Device: Other (VENDING MACHINE HOST/HOSTESS) Bed Mobility Exam: Sit to Supine Level of [place]: Maximum assist (25% patient's effort) Physical/Nonphysical Assist: [...] space Standardized Assessments Standardized Assessments Standardized Assessments: [facility] 6-Clicks Mobility Assessment [facility] 6-Clicks Mobility Assessment Difficulty patient [...] climbing 3-5 steps with a railing?: Unable [facility] 6-Clicks Mobility Assessment Total : [...] remission, Anxiety disorder, unspecified, Arthritis, Atrial fibrillation ([facility]), CAP (community [...] CARE Subjective Pt reports Visitors Present Spouse Social Service Liaison (if applicable) PRESENTATION Oxygen Room Air Telemetry [...] help from Spouse Level of Mobility Mobility [place] History of Falls ADL Performance ADL Performance: [...] Mobility Bed Mobility Exam: Rolling/Turning Level of [place]: Maximum assist (25% patient effort) Physical/Nonphysical Assist: Verbal Cues, Moderate cues Assistive Device: Bed rails, Other (VENDING MACHINE HOST/HOSTESS) Bed Mobility Exam: Scooting/Bridging Level of [place]: Maximum assist (25% patient's effort) (up in bed; Lester forward at EOB) Physical/Nonphysical Assist: Verbal Cues, Moderate cues Assistive Device: Bed rails Bed Mobility Exam: Supine to Sit Level of [place]: Maximum assist (25% patient's effort) Physical/Nonphysical Assist: Verbal Cues, Moderate cues, Set-up required, Additional assist utilized for safety Assistive Device: Other (VENDING MACHINE HOST/HOSTESS) Bed Mobility Exam: Sit to Supine Level of [place]: Maximum assist (25% patient's effort) Physical/Nonphysical Assist: [...] POC an d discharge recommendations. STANDARDIZED ASSESSMENTS [facility] 6-Click Daily Activities Help from Other: Don/Doff Regular Lower Body Clothings: A lot Help From Other: Bathing: A lot Help From Other: Toileting: A lot Help From Other: Don/Doff Upper Body Clothings: None Help From Other: Grooming: None Help From Other: Eating Meals: None [facility] 6 Click - Daily Activities Score: 18 [...] Lunch: leftovers/baked oatmeal Dinner: take out/cooking - [place] [employer] [place] Snacks: peanut butter crackers, cheese [...] remission, Anxiety disorder, unspecified, Arthritis, Atrial fibrillation ([facility]/HCC), CAP (community acquired pneumonia) (05/19/2024), Cellulitis [...] continue to assess need -Follow-up plan: home player services representative - Anette Kendall -Tentative discharge recommendations: [...] team via secure chat orpage us at [phone] during 7a-7p, Thursday-Thursday. For after hours please [...] mL Intravenous PRN Sy De La Fuente APRLashawn DENISE spironolactone (Aldactone) tablet 100 mg 100 [...] by mouth 3 times a day. HYDROcodone-acetaminophen (Freeport) 10-325 MG tablet Take 1 tablet by [...] by mouth daily. Insulin Pen Needle (Pen Groesbeck) 31G X 5 MM misc USE TO [...] 04/28/2025 6:09 AM EDTAssociated Order(s): Consult to [facility] Consuelo Wilson Images from the original note were not included. Consult to [facility] Consuelo Steve Consult performed by: Sy De La Fuente, [...] times a day. 09/05/21 Provider, Historical HYDROcodone-acetaminophen (Freeport) 10-325 MG tablet Take 1 tablet by mouth every 6 hours as needed. Provider, Historical insulin NPH-insulin regular (NovoLIN 70/30 FlexPen) (70-30) 100 UNIT/ML injection pen Inject 90 Units under the skin 3 times a day before meals. FURTHER REFILLS WILL BE PROVIDED UPON ATTENDANCE OF NEXT OFFICE VISIT 03/29/25 02/22/25 Divine Archer APRN Insulin Pen Needle (Pen Groesbeck) 31G X 5 MM [facility] USE TO INJECT INSULIN 3 TIMES PER [...] capsule Take 1 capsule by mouth daily. 8/11/25 Provider, Historical torsemide (Demadex) 20 MG tablet [...] Value Units Date/Time Blood Culture (Aerobic/Anaerobet Set) [[id number]] Collected: 04/27/252215 Order Status: Completed Specimen: Blood, Venous Updated: 04/28/25111 Culture Culture in lab Blood Culture (Aerobic/Anaerobet Set) [[id number]] Collected: 04/27/252215 Order Status: Completed Specimen: Blood, [...] warmth, chills, vomiting. History provided by: Patient chicken stuffer used: No I agree with the above [...] where he was admitted at [facility]. Patient denies any shortness of breath, fevers, [...] baseline. Comments: Awake Psychiatric: Behavior: Behavior normal. [place] Coma Scale Score: 15 ED Course & [...] records from his previous hospital visit at [facility] which showed he was being treated for [...] 500 mL 500 mL Intravenous New Bag 04/27/20252234 EDT magnesium sulfate IVPB 2 g 2 [...] Ordered Status Ordering Provider 04/28/25541 Consult to [facility] Once Specialty: Internal Medicine Provider: (Not yet assigned) Acknowledged SUMAN NATARAJAN 04/28/25541 ED to floor bed request Once Acknowledged SUMAN NATARAJAN 04/28/25541 Once Specialty: Orthopaedic Surgery Provider: (Not yet assigned) Canceled SUMAN NATARAJAN 04/27/252223 CT Foot Right w IV Contrast Once Final result SALBADOR JESSA 04/27/252223 Sed rate, automated STAT Final [...] bicarb depletion. Low concern for DKA [SH] Fri Apr 28, 2025 0238 Spoke with pharmacy team, patient had ertapenem coverage and we expanded to Merrem for 1 time dose prior to likely admission given the lack of Pseudomonas coverage. I spoke with the investment accounting clerk to tryto get records from [facility] to see why he was being treated [...] Anxiety disorder, unspecified Anxiety Arthritis Atrial fibrillation ([facility]) CAP (community acquired pneumonia) 05/19/2024 Cellulitis 05/19/2024 [...] Red man syndrome Jessa Law MD 05/07/25 1822 * ED Triage Notes - Francisco Javier Hansen, RN - 04/27/2025 7:16 PM EDT Pt endorsing diabetic wound to his R foot x2-3 months. documented in this encounter Plan of Treatment Upcoming Encounters Date Type Department Care Team (Late st Contact Info) Description 06/12/2025 2:00 PM EST Office Visit [facility] [address] [place] [address] Elaine Campbell PA [address] [place] [address] 06/22/2025 1:40 PM EST Office Visit [facility] [address] [place] [address] Mary Vicente MD [address] [place] [address] 06/23/2025 8:00 AM EST Office Visit [facility] [address] [place] [address] Sheila Marcano PA [address] [facility] [address] [place] [address] Scheduled Orders Name Type Priority Associated Diagnoses [...] POCT glucose meter (05/18/2025 8:09 AM EST) [facility] POCT Glucose 124(H) 74 - 99 mg/dL 05/18/2025 8:11 AM EST [facility] Comment:Accuracy of a glucos e result [...] for testing. Comment 05/18/2025 8:11 AM EST [facility] Health Plan Manager ID Char Hinojosa 05/18/2025 8:11 AM EST [facility] Device ID [id number] 05/18/2025 8:11 AM EST [facility] Specimen Type POC Capillary 05/18/2025 8:11 AM EST [facility] Blood Capillary blood specimen / Unknown 05/18/2025 8:09 AM EST 05/18/2025 8:11 AM EST us Umar R Jay Jay DO LAB POINT OF CARE TE ST DOCKED DEVICE UNSOLICITED RESULTS Final Result [facility] [address] [place] [address] * (ABNORMAL) POCT glucose meter (05/17/2025 7:54 PM EST) [facility] POCT Glucose 216(H) 74 - 99 mg/dL 05/17/2025 7:55 PM [facility] Comment:Accuracy of a [...] 05/17/2025 7:55 PM EST [facility] Health Plan Manager ID Ron Lal 7:55 PM EST [facility] Device ID [id number] 05/17/2025 7:55 PM EST [facility] Specimen Type POC Capillary 05/17/2025 7:55 PM EST [facility] Blood Capillary blood specimen / Unknown 05/17/2025 7:54 PM EST 05/17/2025 7:55 PM EST Wily Goyal DO LAB POINT OF CARE TE ST DOCKED DEVICE UNSOLICITED RESULTS Final Result [facility] [address] [place] [address] * (ABNORMAL) POCT glucose meter (05/17/2025 5:13 PM EST) [facility] POCT Glucose 186(H) 74 - [...] 05/17/2025 5:14 PM EST [facility] Health Plan Manager ID Char Hinojosa 05/17/2025 5:14 PM EST [facility] Device ID [id number] 05/17/2025 5:14 PM EST [facility] Specimen Type POC Capillary 05/17/2025 5:14 PM EST [facility] Blood Capillary blood specimen / Unknown 05/17/2025 5:13 PM EST 05/17/2025 5:14 PM EST Wily Goyal DO LAB POINT OF CARE TE ST DOCKED DEVICE UNSOLICITED RESULTS Final Result Performing Organization Address [facility] de Phone Number [facility] [address] [place] [address] * (ABNORMAL) POCT glucose meter (05/17/2025 1:01 PM EST) POCT Glucose 191(H) 74 - 99 mg/dL 05/31/2025 3:12 PM EST [facility] Comment:Accuracy of a glucos e result [...] testing. Comment 05/31/2025 3:12 PM EST [facility] Health Plan Manager ID Char iHnojosa 05/31/2025 3:12 PM EST [facility] Device ID [id number] 05/31/2025 3:12 PM EST [facility] Specimen Type POC Capillary 05/31/2025 3:12 PM EST [facility] Blood Capillary blood specimen / Unknown 05/17/2025 1:01 PM EST 05/31/2025 3:12 PM EST Wily Goyal DO LAB POINT OF CARE TE ST DOCKED DEVICE UNSOLICITED RESULTS Final Result Performing Organization Address City/[facility] Co de Phone Number [facility] [address] [place] [address] * ECHO, ADULT TRANSTHORACIC COMPLETE W/ CONTRAST (05/17/2025 9:51 AM EST) BSA 3.30 m2 [facility] Height 182.9 [facility]ANK [facility]SC[facility] Weight 247.2 HANK ISCV LVIDd 51 mm HANK ISCV LVIDs 40 mm AHNK ISCV IVSd 12 mm HANK ISCV LVPWd [...] cm HANK ISCV MV MG 1 mmHg HAKN ISCV MV V2 max 73.4 cm/s HANK ISCV MV max PG 2 mmHg HANK ISCV MV dec slope 267 cm/s2 HANK ISCV MV dec time 190 ms HANK ISCV MV P1/2t 55 ms HANK ISCV MVA(P1/2t) 4.0 cm2 HANK ISCV Ao Root Diam 38 mm HANK ISCV Asc Ao Diam 37 mm HANK ISCV PA AZ(ACCEL) 24.6 mmHg HANK ISCV LV mean PG [...] is no recent study available for direct agfs-go-bixe comparison. Left Ventricle The left ventricle is [...] is no recent study available for direct kldt-ki-spjy comparison. Wily Goyal DO CV ECHO PROCEDURES Final Result * (ABNORMAL) POCT glucose meter (05/17/2025 8:52 AM EST) POCT Glucose 225(H) 74 - 99 mg/dL 05/31/2025 3:12 PM EST [facility] Comment:Accuracy of a glucos e result [...] for testing. Comment 05/31/2025 3:12 PM EST [facility] Health Plan Manager ID Char Hinojosa 05/31/2025 3:12 PM EST [facility] Device ID [id number] 05/31/2025 3:12 PM EST [facility] Specimen Type POC Capillary 05/31/2025 3:12 PM EST [facility] Blood Capillary blood specimen / Unknown 05/17/2025 8:52 AM EST 05/31/2025 3:12 PM EST [facility] LAB POINT OF CARE TE ST DOCKED DEVICE UNSOLICITED RESULTS Final Result Performing Organization Address [facility] de Phone Number [facility] [address] [place] [address] * (ABNORMAL) POCT glucose meter (05/16/2025 9:28 PM EST) [facility] POCT Glucose 199(H) 74 - 99 mg/dL [...] 05/31/2025 3:12 PM EST [facility] Health Plan Manager ID Christie Jamal 3:12 PM EST [facility] Device ID [id number] 05/31/2025 3:12 PM EST [facility] Specimen Type POC Capillary 05/31/2025 3:12 PM EST [facility] Blood Capillary blood specimen / Unknown 05/16/2025 9:28 PM EST 05/31/2025 3:12 PM EST Wily Goyal DO LAB POINT OF CARE TE ST DOCKED DEVICE UNSOLICITED RESULTS Final Result Performing Organization Address [facility] de Phone Number [facility] [address] [place] [address] * (ABNORMAL) POCT glucose meter (05/16/2025 5:37 PM EST) [facility] POCT Glucose 283(H) 74 - 99 [...] 05/16/2025 5:39 PM EST [facility] Health Plan Manager ID Char Hinojosa 05/16/2025 5:39 PM EST [facility] Device ID [id number] 05/16/2025 5:39 PM [facility] Specimen Type POC Capillary 05/16/2025 5:39 PM EST [facility] Blood Capillary blood specimen / Unknown 05/16/2025 5:37 PM EST 05/16/2025 5:39 PM EST Umar R Jay Jay DO LAB POINT OF CARE TE ST DOCKED DEVICE UNSOLICITED RESULTS Final Result Performing Organization Address City/[facility]/ZIP Co de Phone Number [facility] [address] [place] [address] * ECG Adult (05/16/2025 3:33 PM EST) EKG DIAGNOSIS CLASS Abnormal MUSE ECG Ventricular Rate 58 BPM MUSE ECG Atrial Rate 58 BPM MUSE ECG [place] Interval 184 ms MUSE ECG QRSD Interval 158 ms MUSE ECG QT Interval 496 ms MUSE ECG QTC Interval 486 ms MUSE ECG P [place] 30 degrees MUSE ECG R [place] -35 degrees MUSE ECG T Wave [place] -5 degrees MUSE ECG Diagnosis Sinus bradycardia MUSE ECG Diagnosis Left axis deviation MUSE ECG Diagnosis Right bundle branch block MUSE ECG Diagnosis Minimal voltage criteria for LVH, may be normal variant ( R in aVL ) MUSE ECG Diagnosis Abnormal ECG MUSE ECG Diagnosis MUSE ECG Diagnosis Confirmed by Lorie Montejo ([id number]) on 05/18/2025 12:15:08 AM MUSE ECG 05/16/2025 3:33 PM EST 05/18/2025 12:15 AM EST [employer] DO ECG ORDERABLES Final Result Performing Organization Address City/[facility] Co de Phone Number MUSE ECG * (ABNORMAL) POCT glucose meter (05/16/2025 12:06 PM EST) POCT Glucose 161(H) 74 - 99 mg/dL 05/16/2025 12:07 PM [facility] Comment:Accuracy of a [...] 05/16/2025 12:07 PM EST [facility] Health Plan Manager ID Char Hinojosa 05/16/2025 12:07 PM [facility] Device ID [id number] 05/16/2025 12:07 PM EST [facility] Specimen Type POC Capillary 05/16/2025 12:07 PM [facility] Blood Capillary blood specimen / Unknown 05/16/2025 12:06 PM EST 05/16/2025 12:07 PM EST us Selin Lee MD LAB POINT OF CARE TE ST DOCKED DEVICE UNSOLICITED RESULTS Final Result Performing Organization Address City/[facility] Co de Phone Number [facility]ARE [facility] [address] [place] [address] * (ABNORMAL) POCT glucose meter (05/16/2025 8:17 AM EST) [facility] Signature POCT Glucose 168(H) 74 - 99 mg/dL 05/16/2025 8:21 AM EST [facility] Comment:Accuracy of a glucos [...] Comment 05/16/2025 8:21 AM [facility] Health Plan Manager ID Char Hinojosa 05/16/2025 8:21 AM [facility] Device ID [id number] 05/16/2025 8:21 AM EST [facility] Specimen Type POC Capillary 05/16/2025 8:21 AM [facility] Blood Capillary blood specimen / Unknown 05/16/2025 8:17 AM EST 05/16/2025 8:21 AM EST us Selin Lee MD LAB POINT OF CARE TE ST DOCKED DEVICE UNSOLICITED RESULTS Final Result Performing Organization Address City/[facility]/ZIP Co de Phone Number [facility] [address] [place] [address] * (ABNORMAL) CBC and Differential (05/16/2025 4:08 AM EST) WBC Count 7.97 3.70 - 10.30 10*3/uL LAB HEMATOLOGY METHOD 05/16/2025 4:26 AM EST [facility] RBC Count 4.27(L) 4.60 - 6.10 10*6/uL LAB HEMATOLOGY METHOD 05/16/2025 4:26 AM EST [facility] HGB 9.5(L) 13.7 - 17.5 g/dL LAB HEMATOLOGY METHOD 05/16/2025 4:26 AM EST [facility] HCT 31.6(L) 40.0 - 51.0 % LAB HEMATOLOGY METHOD 05/16/2025 4:26 AM EST [facility] Platelet Count 264 155 - 369 10*3/uL LAB HEMATOLOGY METHOD 05/16/2025 4:26 AM [facility] MCV 74(L) 79 - 98 fL LAB HEMATOLOGY METHOD 05/16/2025 4:26 AM [facility] MCH 22.2(L) 26.0 - 32.0 pg LAB HEMATOLOGY METHOD 05/16/2025 4:26 AM [facility] MCHC 30.1(L) 30.7 - 35.5 g/dL LAB HEMATOLOGY METHOD 05/16/2025 4:26 AM [facility] RDW 17.9(H) 11.5 - 14.5 % LAB HEMATOLOGY METHOD 05/16/2025 4:26 AM [facility] MPV 9.2 8.8 - 12.5 fL LAB HEMATOLOGY METHOD 05/16/2025 4:26 AM [facility] nRBC 0.0 <=0.0 per 100 WBCs LAB HEMATOLOGY METHOD 05/16/2025 4:26 AM [facility] Differential Type Automated LAB HEMATOLOGY METHOD 05/16/2025 4:26 AM [facility] Neutrophils % 67 % LAB HEMATOLOGY METHOD 05/16/2025 4:26 AM [facility] Lymphocytes % 16 % LAB HEMATOLOGY METHOD 05/16/2025 4:26 AM [facility] Monocytes % 12 % LAB HEMATOLOGY METHOD 05/16/2025 4:26 AM EST [facility] Eosinophils % 3 % LAB HEMATOLOGY METHOD 05/16/2025 4:26 AM EST [facility] Basophils % 1 % LAB HEMATOLOGY METHOD 05/16/2025 4:26 AM EST [facility] Immature Granulocytes % 1 % LAB HEMATOLOGY METHOD 05/16/2025 4:26 AM EST [facility] Neutrophils Absolute 5.39 1.60 - 6.10 10*3/uL LAB HEMATOLOGY METHOD 05/16/2025 4:26 AM EST [facility] Lymphocytes Absolute 1.30 1.20 - 3.90 10*3/uL LAB HEMATOLOGY METHOD 05/16/2025 4:26 AM EST [facility] Monocytes Absolute 0.93(H) 0.30 - 0.90 10*3/uL LAB HEMATOLOGY METHOD 05/16/2025 4:26 AM EST [facility] Eosinophils Absolute 0.26 0.00 - 0.50 10*3/uL LAB HEMATOLOGY METHOD 05/16/2025 4:26 AM EST [facility] Basophils Absolute 0.05 0.00 - 0.10 10*3/uL LAB HEMATOLOGY METHOD 05/16/2025 4:26 AM EST [facility] Immature Granulocytes Absolute 0.04 0.00 - 0.06 10*3/uL LAB HEMATOLOGY METHOD 05/16/2025 4:26 AM EST [facility] Blood Venous blood specimen / Unknown Venipuncture / Unknown 05/16/2025 4:08 AM EST 05/16/2025 4:17 AM EST Narrative [facility] - 05/16/2025 4:26 AM EST Therapeutic decision making should be based on absolute values, rather than percentages. us Selin Lee MD LAB BLOOD ORDERABLES Final Re sult [facility] [address] [place] [address] * (ABNORMAL) Magnesium, Plasma (05/16/2025 4:08 AM EST) Magnesium, Plasma 1.8(L) 1.9 - 2.4 mg/dL 05/16/2025 4:48 AM EST [facility] Blood Venous blood specimen / Unknown Venipuncture / Unknown 05/16/2025 4:08 AM EST 05/16/2025 4:16 AM EST us Selin Lee MD LAB BLOOD ORDERABLES Final Re sult [facility] [address] [place] [address] * (ABNORMAL) Basic Metabolic Panel, Plasma (05/16/2025 4:08 AM EST) Glucose, Plasma 168(H) 74 - 99 mg/dL 05/16/2025 4:48 AM EST [facility] BUN, Plasma 19 7 - 21 mg/dL 05/16/2025 4:48 AM EST [facility] Creatinine, Plasma 0.86 0.70 - 1.20 mg/dL 05/16/2025 4:48 AM EST [facility] BUN/Creatinine Ratio 22 05/16/2025 4:48 AM EST [facility] Sodium, Plasma 131(L) 136 - 145 mmol/L 05/16/2025 4:48 AM EST [facility] Potassium, Plasma 3.6 3.6 - 4.9 mmol/L 05/16/2025 4:48 AM EST [facility] Chloride, Plasma 88(L) 97 - 107 mmol/L 05/16/2025 4:48 AM EST [facility] CO2, Plasma 34(H) 22 - 29 mmol/L 05/16/2025 4:48 AM EST [facility] Anion Gap 9 6 - 16 mmol/L 05/16/2025 4:48 AM EST [facility] Total Calcium, Plasma 9.3 8.9 - 10.2 mg/dL 05/16/2025 4:48 AM EST [facility] eGFRcr 107.5 mL/min/1.7 3m*2 05/16/2025 4:48 AM EST [facility] Comment:Reported eGFRcr in m L/min/1.73m2 is based the CKD-EPI 2020 equation that does not use a race coefficient. Blood Venous blood specimen / Unknown Venipuncture / Unknown 05/16/2025 4:08 AM EST 05/16/2025 4:16 AM EST us Selin Lee MD LAB BLOOD ORDERABLES Final Re sult Performing Organization Address [facility]/ZIP Co de Phone Number [facility] [address] [place] [address] * Phosphorus, Plasma (05/16/2025 4:08 AM EST) [facility] Phosphorus, Plasma 3.7 2.5 - 4.5 mg/dL 05/16/2025 4:48 AM EST [facility] Blood Venous blood specimen / Unknown Venipuncture / Unknown 05/16/2025 4:08 AM EST 05/16/2025 4:16 AM EST us Selin Lee MD LAB BLOOD ORDERABLES Final Re sult Performing Organization Address [facility] [place] [address] * (ABNORMAL) POCT glucose meter (05/15/2025 8:00 PM EST) [facility] POCT Glucose 190(H) 74 - [...] 05/15/2025 8:02 PM EST [facility] Health Plan Manager ID Timo Campbell 8:02 PM EST [facility] Device ID [id number] 05/15/2025 8:02 PM EST [facility] Specimen Type POC Capillary 05/15/2025 8:02 PM EST [facility] Blood Capillary blood specimen / Unknown 05/15/2025 8:00 PM EST 05/15/2025 8:02 PM EST us Selin Lee MD LAB POINT OF CARE TE ST DOCKED DEVICE UNSOLICITED RESULTS Final Result Performing Organization Address City/State/[facility] de Phone Number [facility] [address] [place] [address] * (ABNORMAL) POCT glucose meter (05/15/2025 4:52 PM EST) [facility] POCT Glucose 270(H) 74 - [...] 05/15/2025 4:53 PM EST [facility] Health Plan Manager ID Char Hinojosa 05/15/2025 4:53 PM EST [facility] Device ID [id number] 05/15/2025 4:53 PM EST [facility] Specimen Type POC Capillary 05/15/2025 4:53 PM [facility] Blood Capillary blood specimen / Unknown 05/15/2025 4:52 PM EST 05/15/2025 4:53 PM EST Selin Lee MD LAB POINT OF CARE TE ST DOCKED DEVICE UNSOLICITED RESULTS Final Result Performing Organization Address [facility] de Phone Number [facility] [address] [place] [address] * (ABNORMAL) POCT glucose meter (05/15/2025 12:46 PM EST) [facility] POCT Glucose 233(H) 74 - [...] 05/15/2025 12:48 PM EST [facility] Health Plan Manager ID Santy Garcia 05/15/2025 12:48 PM EST [facility] Device ID [id number] 05/15/2025 12:48 PM EST [facility] Specimen Type POC Capillary 05/15/2025 12:48 PM [facility] Blood Capillary blood specimen / Unknown 05/15/2025 12:46 PM EST 05/15/2025 12:48 PM EST us Selin Lee MD LAB POINT OF CARE TE ST DOCKED DEVICE UNSOLICITED RESULTS Final Result Performing Organization Address City/[facility]/ZIP Co de Phone Number [facility] [address] [place] [address] * (ABNORMAL) POCT glucose meter (05/15/2025 11:31 [...] 05/15/2025 11:33 AM EST [facility] Health Plan Manager ID Char Hinojosa 05/15/2025 11:33 AM EST [facility] Device ID [id number] 05/15/2025 11:33 AM EST [facility] Specimen Type POC Capillary 05/15/2025 11:33 AM [facility] Blood Capillary blood specimen / Unknown 05/15/2025 11:31 AM EST 05/15/2025 11:33 AM EST us Selin Lee MD LAB POINT OF CARE TE ST DOCKED DEVICE UNSOLICITED RESULTS Final Result Performing Organization Address City/[facility] Co de Phone Number [facility] [address] [place] [address] * (ABNORMAL) POCT glucose meter (05/15/2025 8:12 [...] Comment 05/15/2025 8:14 AM [facility] Health Plan Manager ID Char Hinojsoa 05/15/2025 8:14 AM EST [facility] Device ID [id number] 05/15/2025 8:14 AM EST [facility] Specimen Type POC Capillary 05/15/2025 8:14 AM EST [facility] Blood Capillary blood specimen / Unknown 05/15/2025 8:12 AM EST 05/15/2025 8:14 AM EST us Selin Lee MD LAB POINT OF CARE TE ST DOCKED DEVICE UNSOLICITED RESULTS Final Result Performing Organization Address City/State/[facility] de Phone Number [facility]ALTH[facility]ARE [facility] [address] [place] [address] * (ABNORMAL) CBC and Differential (05/15/2025 2:24 AM EST) WBC Count 8.81 3.70 - 10.30 10*3/uL LAB HEMATOLOGY METHOD 05/15/2025 2:41 AM EST [facility] RBC Count 4.49(L) 4.60 - 6.10 10*6/uL LAB HEMATOLOGY METHOD 05/15/2025 2:41 AM EST [facility] HGB 9.9(L) 13.7 - 17.5 g/dL LAB HEMATOLOGY METHOD 05/15/2025 2:41 AM EST [facility] HCT 33.3(L) 40.0 - 51.0 % LAB HEMATOLOGY METHOD 05/15/2025 2:41 AM EST [facility] Platelet Count 286 155 - 369 10*3/uL LAB HEMATOLOGY METHOD 05/15/2025 2:41 AM EST [facility] MCV 74(L) 79 - 98 fL LAB HEMATOLOGY METHOD 05/15/2025 2:41 AM EST [facility] MCH 22.0(L) 26.0 - 32.0 pg LAB HEMATOLOGY METHOD 05/15/2025 2:41 AM [facility] MCHC 29.7(L) 30.7 - 35.5 g/dL LAB HEMATOLOGY METHOD 05/15/2025 2:41 AM [facility] RDW 17.8(H) 11.5 - 14.5 % LAB HEMATOLOGY METHOD 05/15/2025 2:41 AM [facility] MPV 9.4 8.8 - 12.5 fL LAB HEMATOLOGY METHOD 05/15/2025 2:41 AM [facility] nRBC 0.0 <=0.0 per 100 WBCs LAB HEMATOLOGY METHOD 05/15/2025 2:41 AM [facility] Differential Type Automated LAB HEMATOLOGY METHOD 05/15/2025 2:41 AM [facility] Neutrophils % 71 % LAB HEMATOLOGY METHOD 05/15/2025 2:41 AM [facility] Lymphocytes % 14 % LAB HEMATOLOGY METHOD 05/15/2025 2:41 AM [facility] Monocytes % 11 % LAB HEMATOLOGY METHOD 05/15/2025 2:41 AM [facility] Eosinophils % 3 % LAB HEMATOLOGY METHOD 05/15/2025 2:41 AM [facility] Basophils % 1 % LAB HEMATOLOGY METHOD 05/15/2025 2:41 AM [facility] Immature Granulocytes % 0 % LAB HEMATOLOGY METHOD 05/15/2025 2:41 AM [facility] Neutrophils Absolute 6.25(H) 1.60 - 6.10 10*3/uL LAB HEMATOLOGY METHOD 05/15/2025 2:41 AM [facility] Lymphocytes Absolute 1.27 1.20 - 3.90 10*3/uL LAB HEMATOLOGY METHOD 05/15/2025 2:41 AM [facility] Monocytes Absolute 0.95(H) 0.30 - 0.90 10*3/uL LAB HEMATOLOGY METHOD 05/15/2025 2:41 AM [facility] Eosinophils Absolute 0.27 0.00 - 0.50 10*3/uL LAB HEMATOLOGY METHOD 05/15/2025 2:41 AM [facility] Basophils Absolute 0.04 0.00 - 0.10 10*3/uL LAB HEMATOLOGY METHOD 05/15/2025 2:41 AM [facility] Immature Granulocytes Absolute 0.03 0.00 - 0.06 10*3/uL LAB HEMATOLOGY METHOD 05/15/2025 2:41 AM EST [facility] Blood Venous blood specimen / Unknown Venipuncture / Unknown 05/15/2025 2:24 AM EST 05/15/2025 2:33 AM EST Narrative [facility] - 05/15/2025 2:41 AM EST Therapeutic decision making should be based on absolute values, rather than percentages. us Selin Lee MD LAB BLOOD ORDERABLES Final Re sult Performing Organization Address City/[facility]/ZIP Co de Phone Number [facility] [address] [place] [address] * (ABNORMAL) Magnesium, Plasma (05/15/2025 2:24 AM EST) Magnesium, Plasma 1.8(L) 1.9 - 2.4 mg/dL 05/15/2025 3:03 AM EST [facility] Blood Venous blood specimen / Unknown Venipuncture / Unknown 05/15/2025 2:24 AM EST 05/15/2025 2:32 AM EST us Selin Lee MD LAB BLOOD ORDERABLES Final Re sult Performing Organization Address City/[facility]/ZIP Co de Phone Number [facility] [address] [place] [address] * (ABNORMAL) Basic Metabolic Panel, Plasma (05/15/2025 2:24 AM EST) Glucose, Plasma 162(H) 74 - 99 mg/dL 05/15/2025 3:03 AM EST [facility] BUN, Plasma 15 7 - 21 mg/dL 05/15/2025 3:03 AM EST [facility] Creatinine, Plasma 0.91 0.70 - 1.20 mg/dL 05/15/2025 3:03 AM EST [facility] BUN/Creatinine Ratio 16 05/15/2025 3:03 AM EST [facility] Sodium, Plasma 133(L) 136 - 145 mmol/L 05/15/2025 3:03 AM EST [facility] Potassium, Plasma 3.3(L) 3.6 - 4.9 mmol/L 05/15/2025 3:03 AM EST [facility] Chloride, Plasma 87(L) 97 - 107 mmol/L 05/15/2025 3:03 AM EST [facility] CO2, Plasma 37(H) 22 - 29 mmol/L 05/15/2025 3:03 AM EST [facility] Anion Gap 9 6 - 16 mmol/L 05/15/2025 3:03 AM EST [facility] Total Calcium, Plasma 9.2 8.9 - 10.2 mg/dL 05/15/2025 3:03 AM EST [facility] eGFRcr 104.6 mL/min/1.7 3m*2 05/15/2025 3:03 AM EST [facility] Comment:Reported eGFRcr in m L/min/1.73m2 is based the CKD-EPI 2020 equation that does not use a race coefficient. Blood Venous blood specimen / Unknown Venipuncture / Unknown 05/15/2025 2:24 AM EST 05/15/2025 2:32 AM EST Selin Lee MD LAB BLOOD ORDERABLES Final Re sult Performing Organization Address City/[facility]/ZIP Co de Phone Number [facility] [address] [place] [address] * Phosphorus, Plasma (05/15/2025 2:24 AM EST) Phosphorus, Plasma 3.7 2.5 - 4.5 mg/dL 05/15/2025 3:03 AM EST [facility] Blood Venous blood specimen / Unknown Venipuncture / Unknown 05/15/2025 2:24 AM EST 05/15/2025 2:32 AM EST us Selin Lee MD LAB BLOOD ORDERABLES Final Re sult Performing Organization Address City/[facility]/ZIP Co de Phone Number [facility] [address] [place] [address] * (ABNORMAL) POCT glucose meter (05/14/2025 8:09 [...] Comment 05/14/2025 8:11 PM EST [facility] Health Plan Manager ID Stella Coleman 05/14/20 8:11 PM EST [facility] Device ID [id number] 05/14/2025 8:11 PM EST [facility] Specimen Type POC Capillary 05/14/2025 8:11 PM EST [facility] Blood Capillary blood specimen / Unknown 05/14/2025 8:09 PM EST 05/14/2025 8:11 PM EST Selin Lee MD LAB POINT OF CARE TE ST DOCKED DEVICE UNSOLICITED RESULTS Final Result Performing Organization Address City/State/[facility] Co de Phone Number [facility]ALTH[facility]ARE [facility] [address] [place] [address] * (ABNORMAL) POCT glucose meter (05/14/2025 5:10 PM EST) [facility] POCT Glucose 320(H) 74 - [...] 05/14/2025 5:13 PM EST [facility] Health Plan Manager ID Gatica White DeerDunia 05/14/2025 5:13 PM EST [facility] Device ID [id number] 05/14/2025 5:13 PM EST [facility] Specimen Type POC Capillary 05/14/2025 5:13 PM EST [facility] Blood Capillary blood specimen / Unknown 05/14/2025 5:10 PM EST 05/14/2025 5:13 PM EST us Selin Lee MD LAB POINT OF CARE TE ST DOCKED DEVICE UNSOLICITED RESULTS Final Result Performing Organization Address City/[facility] Co de Phone Number [facility] [address] [place] [address] * (ABNORMAL) POCT glucose meter (05/14/2025 12:15 [...] 05/14/2025 4:51 PM EST [facility] Health Plan Manager ID Dunia Montgomery 05/14/2025 4:51 PM EST [facility] Device ID [id number] 05/14/2025 4:51 PM EST [facility] Specimen Type POC Capillary 05/14/2025 4:51 PM EST [facility] Blood Capillary blood specimen / Unknown 05/14/2025 12:15 PM EST 05/14/2025 4:51 PM EST us Selin Lee MD LAB POINT OF CARE TE ST DOCKED DEVICE UNSOLICITED RESULTS Final Result Performing Organization Address City/[facility] Co de Phone Number [facility] [address] [place] [address] * (ABNORMAL) POCT glucose meter (05/14/2025 8:30 [...] 05/14/2025 8:33 AM EST [facility] Health Plan Manager ID Dunia Montgomery 05/14/2025 8:33 AM EST [facility] Device ID [id number] 05/14/2025 8:33 AM EST [facility] Specimen Type POC Capillary 05/14/2025 8:33 AM EST [facility] Blood Capillary blood specimen / Unknown 05/14/2025 8:30 AM EST 05/14/2025 8:33 AM EST us Selin Lee MD LAB POINT OF CARE TE ST DOCKED DEVICE UNSOLICITED RESULTS Final Result Performing Organization Address [facility] Co de Phone Number [facility] [address] [place] [address] * (ABNORMAL) POCT glucose meter (05/14/2025 4:49 AM EST) POCT Glucose 306(H) 74 - 99 mg/dL 05/31/2025 3:12 PM EST [facility] Comment:Accuracy of a glucos [...] Comment 05/31/2025 3:12 PM EST [facility] Health Plan Manager ID Asiya Nix 025 3:12 PM EST [facility] Device ID [id number] 05/31/2025 3:12 PM EST [facility] Specimen Type POC Capillary 05/31/2025 3:12 PM EST [facility] Blood Capillary blood specimen / Unknown 05/14/2025 4:49 AM EST 05/31/2025 3:12 PM EST us Wily Goyal DO LAB POINT OF CARE TE ST DOCKED DEVICE UNSOLICITED RESULTS Final Result Performing Organization Address City/[facility] Co de Phone Number [facility] [address] [place] [address] * (ABNORMAL) CBC and Differential (05/14/2025 1:45 AM EDT) [facility] Signature WBC Count 7.88 3.70 - 10.30 10*3/uL LAB HEMATOLOGY METHOD 05/14/2025 2:47 AM EST [facility] RBC Count 4.25(L) 4.60 - 6.10 10*6/uL LAB HEMATOLOGY METHOD 05/14/2025 2:47 AM EST [facility] HGB 9.7(L) 13.7 - 17.5 g/dL LAB HEMATOLOGY METHOD 05/14/2025 2:47 AM EST [facility] HCT 31.7(L) 40.0 - 51.0 % LAB HEMATOLOGY METHOD 05/14/2025 2:47 AM EST [facility] Platelet Count 273 155 - 369 10*3/uL LAB HEMATOLOGY METHOD 05/14/2025 2:47 AM EST [facility] MCV 75(L) 79 - 98 fL LAB HEMATOLOGY METHOD 05/14/2025 2:47 AM EST [facility] MCH 22.8(L) 26.0 - 32.0 pg LAB HEMATOLOGY METHOD 05/14/2025 2:47 AM EST [facility] MCHC 30.6(L) 30.7 - 35.5 g/dL LAB HEMATOLOGY METHOD 05/14/2025 2:47 AM [facility] RDW 17.9(H) 11.5 - 14.5 % LAB HEMATOLOGY METHOD 05/14/2025 2:47 AM EST [facility] MPV 9.6 8.8 - 12.5 fL LAB HEMATOLOGY METHOD 05/14/2025 2:47 AM EST [facility] nRBC 0.0 <=0.0 per 100 WBCs LAB HEMATOLOGY METHOD 05/14/2025 2:47 AM EST [facility] Differential Type Automated LAB HEMATOLOGY METHOD 05/14/2025 2:47 AM [facility] Neutrophils % 66 % LAB HEMATOLOGY METHOD 05/14/2025 2:47 AM EST [facility] Lymphocytes % 18 % LAB HEMATOLOGY METHOD 05/14/2025 2:47 AM EST [facility] Monocytes % 11 % LAB HEMATOLOGY METHOD 05/14/2025 2:47 AM EST [facility] Eosinophils % 4 % LAB HEMATOLOGY METHOD 05/14/2025 2:47 AM EST [facility] Basophils % 1 % LAB HEMATOLOGY METHOD 05/14/2025 2:47 AM EST [facility] Immature Granulocytes % 0 % LAB HEMATOLOGY METHOD 05/14/2025 2:47 AM EST [facility] Neutrophils Absolute 5.20 1.60 - 6.10 10*3/uL LAB HEMATOLOGY METHOD 05/14/2025 2:47 AM EST [facility] Lymphocytes Absolute 1.44 1.20 - 3.90 10*3/uL LAB HEMATOLOGY METHOD 05/14/2025 2:47 AM EST [facility] Monocytes Absolute 0.85 0.30 - 0.90 10*3/uL LAB HEMATOLOGY METHOD 05/14/2025 2:47 AM EST [facility] Eosinophils Absolute 0.30 0.00 - 0.50 10*3/uL LAB HEMATOLOGY METHOD 05/14/2025 2:47 AM EST [facility] Basophils Absolute 0.06 0.00 - 0.10 10*3/uL LAB HEMATOLOGY METHOD 05/14/2025 2:47 AM EST [facility] Immature Granulocytes Absolute 0.03 0.00 - 0.06 10*3/uL LAB HEMATOLOGY METHOD 05/14/2025 2:47 AM EST [facility] Blood Venous blood specimen / Unknown Venipuncture / Unknown 05/14/2025 1:45 AM EDT 05/14/2025 2:24 AM EST Narrative [facility] - 05/14/2025 2:47 AM EST Therapeutic decision making should be based on absolute values, rather than percentages. us Selin Lee MD LAB BLOOD ORDERABLES Final Re sult [facility] [address] [place] [address] * (ABNORMAL) Magnesium, Plasma (05/14/2025 1:45 AM EDT) Magnesium, Plasma 1.7(L) 1.9 - 2.4 mg/dL 05/14/2025 2:58 AM EST [facility] Blood Venous blood specimen / Unknown Venipuncture / Unknown 05/14/2025 1:45 AM EDT 05/14/2025 2:25 AM EST us Selin Lee MD LAB BLOOD ORDERABLES Final Re sult [facility] [address] [place] [address] * (ABNORMAL) Basic Metabolic Panel, Plasma (05/14/2025 1:45 AM EDT) Glucose, Plasma 282(H) 74 - 99 mg/dL 05/14/2025 2:58 AM EST [facility] BUN, Plasma 16 7 - 21 mg/dL 05/14/2025 2:58 AM EST [facility] Creatinine, Plasma 0.85 0.70 - 1.20 mg/dL 05/14/2025 2:58 AM EST [facility] BUN/Creatinine Ratio 19 05/14/2025 2:58 AM EST [facility] Sodium, Plasma 132(L) 136 - 145 mmol/L 05/14/2025 2:58 AM EST [facility] Potassium, Plasma 3.5(L) 3.6 - 4.9 mmol/L 05/14/2025 2:58 AM EST [facility] Chloride, Plasma 87(L) 97 - 107 mmol/L 05/14/2025 2:58 AM EST [facility] CO2, Plasma 34(H) 22 - 29 mmol/L 05/14/2025 2:58 AM EST [facility] Anion Gap 11 6 - 16 mmol/L 05/14/2025 2:58 AM EST [facility] Total Calcium, Plasma 9.2 8.9 - 10.2 mg/dL 05/14/2025 2:58 AM EST [facility] eGFRcr 107.9 mL/min/1.7 3m*2 05/14/2025 2:58 AM EST [facility] Comment:Reported eGFRcr in m L/min/1.73m2 is based the CKD-EPI 2020 equation that does not use a race coefficient. Blood Venous blood specimen / Unknown Venipuncture / Unknown 05/14/2025 1:45 AM EDT 05/14/2025 2:25 AM EST us Selin Lee MD LAB BLOOD ORDERABLES Final Re sult Performing Organization Address City/[facility] [place] [address] * Phosphorus, Plasma (05/14/2025 1:45 AM EDT) Pathologist [facility] Phosphorus, Plasma 3.3 2.5 - 4.5 mg/dL 05/14/2025 2:58 AM EST [facility] Blood Venous blood specimen / Unknown Venipuncture / Unknown 05/14/2025 1:45 AM EDT 05/14/2025 2:25 AM EST us Selin Lee MD LAB BLOOD ORDERABLES Final Re sult Performing Organization Address [facility] [place] [address] * (ABNORMAL) POCT glucose meter (05/13/2025 7:59 PM EDT) [facility] POCT Glucose 257(H) 74 - 99 [...] 05/31/2025 3:12 PM EST [facility] Health Plan Manager ID Stella Coleman 05/31/20 25 3:12 PM EST [facility] Device ID [id number] 05/31/2025 3:12 PM EST [facility] Specimen Type POC Capillary 05/31/2025 3:12 PM EST [facility] Blood Capillary blood specimen / Unknown 05/13/2025 7:59 PM EDT 05/31/2025 3:12 PM EST us Wily Goyal DO LAB POINT OF CARE TE ST DOCKED DEVICE UNSOLICITED RESULTS Final Result Performing Organization Address City/[facility]/ZIP Co de Phone Number [facility]ALTHCARE [facility] [address] [place] [address] * (ABNORMAL) POCT glucose meter (05/13/2025 4:58 [...] for testing. Comment 05/13/2025 5:00 PM EDT [facility] Health Plan Manager ID Priyanka Negrete 05/13/20 25 5:00 PM EDT HEALTHCARE LAB Device ID [id number] 05/13/2025 5:00 PM EDT [facility] Specimen Type POC Capillary 05/13/2025 5:00 PM EDT [facility] Blood Capillary blood specimen / Unknown 05/13/2025 4:58 PM EDT 05/13/2025 5:00 PM EDT Selin Lee MD LAB POINT OF CARE TE ST DOCKED DEVICE UNSOLICITED RESULTS Final Result Performing Organization Address City/[facility] Co de Phone Number [facility] [address] [place] [address] * (ABNORMAL) POCT glucose meter (05/13/2025 11:37 [...] Comment 05/13/2025 11:41 AM EDT [facility]ALTHCARE LAB Health Plan Manager ID Priyanka Negrete 05/13/20 11:41 AM EDT HEALTHCARE LAB Device ID [id number] 05/13/2025 11:41 AM EDT [facility]ALTH[facility]ARE LAB Specimen Type POC Capillary 05/13/2025 11:41 AM EDT [facility]ALTH[facility]ARE [facility] Blood Capillary blood specimen / Unknown 05/13/2025 11:37 AM EDT 05/13/2025 11:41 AM EDT Selin Lee MD LAB POINT OF CARE TE ST DOCKED DEVICE UNSOLICITED RESULTS Final Result Performing Organization Address City/[facility]/ZIP Co de Phone Number [facility]ARE [facility] [address] [place] [address] * (ABNORMAL) POCT glucose meter (05/13/2025 7:42 [...] Comment 05/13/2025 7:45 AM EDT [facility]ARE [facility] Health Plan Manager ID Priyanka Negrete 05/13/20 7:45 AM EDT HEALTHCARE LAB Device ID [id number] 05/13/2025 7:45 AM EDT HEALTHCARE LAB Specimen Type POC Capillary 05/13/2025 7:45 AM EDT [facility] Blood Capillary blood specimen / Unknown 05/13/2025 7:42 AM EDT 05/13/2025 7:45 AM EDT us Selin Lee MD LAB POINT OF CARE TE ST DOCKED DEVICE UNSOLICITED RESULTS Final Result Performing Organization Address City/[facility]/ZIP Co de Phone Number [facility]ALTH[facility]ARE [facility] [address] [place] [address] * (ABNORMAL) CBC and Differential (05/13/2025 3:54 AM EDT) [facility] WBC Count 7.92 3.70 - 10.30 10*3/uL LAB HEMATOLOGY METHOD 05/13/2025 4:11 AM EDT [facility] RBC Count 4.40(L) 4.60 - 6.10 10*6/uL LAB HEMATOLOGY METHOD 05/13/2025 4:11 AM EDT [facility] HGB 9.9(L) 13.7 - 17.5 g/dL LAB HEMATOLOGY METHOD 05/13/2025 4:11 AM EDT [facility] HCT 33.0(L) 40.0 - 51.0 % LAB HEMATOLOGY METHOD 05/13/2025 4:11 AM EDT [facility] Platelet Count 276 155 - 369 10*3/uL LAB HEMATOLOGY METHOD 05/13/2025 4:11 AM EDT [facility] MCV 75(L) 79 - 98 fL LAB HEMATOLOGY METHOD 05/13/2025 4:11 AM EDT [facility] MCH 22.5(L) 26.0 - 32.0 pg LAB HEMATOLOGY METHOD 05/13/2025 4:11 AM EDT [facility] MCHC 30.0(L) 30.7 - 35.5 g/dL LAB HEMATOLOGY METHOD 05/13/2025 4:11 AM EDT [facility] RDW 17.8(H) 11.5 - 14.5 % LAB HEMATOLOGY METHOD 05/13/2025 4:11 AM EDT [facility] MPV 9.3 8.8 - 12.5 fL LAB HEMATOLOGY METHOD 05/13/2025 4:11 AM EDT [facility] nRBC 0.0 <=0.0 per 100 WBCs LAB HEMATOLOGY METHOD 05/13/2025 4:11 AM EDT [facility] Differential Type Automated LAB HEMATOLOGY METHOD 05/13/2025 4:11 AM EDT [facility] Neutrophils % 69 % LAB HEMATOLOGY METHOD 05/13/2025 4:11 AM EDT [facility] Lymphocytes % 17 % LAB HEMATOLOGY METHOD 05/13/2025 4:11 AM EDT [facility] Monocytes % 10 % LAB HEMATOLOGY METHOD 05/13/2025 4:11 AM EDT [facility] Eosinophils % 3 % LAB HEMATOLOGY METHOD 05/13/2025 4:11 AM EDT [facility] Basophils % 1 % LAB HEMATOLOGY METHOD 05/13/2025 4:11 AM EDT [facility] Immature Granulocytes % 0 % LAB HEMATOLOGY METHOD 05/13/2025 4:11 AM EDT [facility] Neutrophils Absolute 5.47 1.60 - 6.10 10*3/uL LAB HEMATOLOGY METHOD 05/13/2025 4:11 AM EDT [facility] Lymphocytes Absolute 1.33 1.20 - 3.90 10*3/uL LAB HEMATOLOGY METHOD 05/13/2025 4:11 AM EDT [facility] Monocytes Absolute 0.78 0.30 - 0.90 10*3/uL LAB HEMATOLOGY METHOD 05/13/2025 4:11 AM EDT [facility] Eosinophils Absolute 0.27 0.00 - 0.50 10*3/uL LAB HEMATOLOGY METHOD 05/13/2025 4:11 AM EDT [facility] Basophils Absolute 0.04 0.00 - 0.10 10*3/uL LAB HEMATOLOGY METHOD 05/13/2025 4:11 AM EDT [facility] Immature Granulocytes Absolute 0.03 0.00 - 0.06 10*3/uL LAB HEMATOLOGY METHOD 05/13/2025 4:11 AM EDT [facility] Blood Venous blood specimen / Unknown Venipuncture / Unknown 05/13/2025 3:54 AM EDT 05/13/2025 4:01 AM EDT Narrative [facility] - 05/13/2025 4:11 AM EDT Therapeutic decision making should be based on absolute values, rather than percentages. us Selin Lee MD LAB BLOOD ORDERABLES Final Re sult [facility] [address] [place] [address] * Magnesium, Plasma (05/13/2025 3:54 AM EDT) Magnesium, Plasma 1.9 1.9 - 2.4 mg/dL 05/13/2025 4:28 AM EDT [facility] Blood Venous blood specimen / Unknown Venipuncture / Unknown 05/13/2025 3:54 AM EDT 05/13/2025 4:01 AM EDT us Selin Lee MD LAB BLOOD ORDERABLES Final Re sult [facility] [address] [place] [address] * (ABNORMAL) Basic Metabolic Panel, Plasma (05/13/2025 3:54 AM EDT) Glucose, Plasma 238(H) 74 - 99 mg/dL 05/13/2025 4:28 AM EDT [facility] BUN, Plasma 16 7 - 21 mg/dL 05/13/2025 4:28 AM EDT [facility] Creatinine, Plasma 0.96 0.70 - 1.20 mg/dL 05/13/2025 4:28 AM EDT [facility] BUN/Creatinine Ratio 17 05/13/2025 4:28 AM EDT [facility] Sodium, Plasma 131(L) 136 - 145 mmol/L 05/13/2025 4:28 AM EDT [facility] Potassium, Plasma 3.3(L) 3.6 - 4.9 mmol/L 05/13/2025 4:28 AM EDT [facility] Chloride, Plasma 87(L) 97 - 107 mmol/L 05/13/2025 4:28 AM EDT [facility] CO2, Plasma 37(H) 22 - 29 mmol/L 05/13/2025 4:28 AM EDT [facility] Anion Gap 7 6 - 16 mmol/L 05/13/2025 4:28 AM EDT [facility] Total Calcium, Plasma 9.1 8.9 - 10.2 mg/dL 05/13/2025 4:28 AM EDT [facility] eGFRcr 98.1 mL/min/1.7 3m*2 05/13/2025 4:28 AM EDT [facility] Comment:Reported eGFRcr in m L/min/1.73m2 is based the CKD-EPI 2020 equation that does not use a race coefficient. Blood Venous blood specimen / Unknown Venipuncture / Unknown 05/13/2025 3:54 AM EDT 05/13/2025 4:01 AM EDT us Selin Lee MD LAB BLOOD ORDERABLES Final Re sult Performing Organization Address City/[facility]/ZIP Co de Phone Number [facility] [address] [place] [address] * Phosphorus, Plasma (05/13/2025 3:54 AM EDT) [facility] Phosphorus, Plasma 3.3 2.5 - 4.5 mg/dL 05/13/2025 4:28 AM EDT [facility] Blood Venous blood specimen / Unknown Venipuncture / Unknown 05/13/2025 3:54 AM EDT 05/13/2025 4:01 AM EDT us Selin Lee MD LAB BLOOD ORDERABLES Final Re sult Performing Organization Address [facility] de Phone Number [facility] [address] [place] [address] * (ABNORMAL) POCT glucose meter (05/12/2025 7:40 PM EDT) [facility] POCT Glucose 248(H) 74 - [...] 05/12/2025 7:42 PM EDT [facility] Health Plan Manager ID Stella Coleman 05/12/20 7:42 PM EDT [facility] Device ID [id number] 05/12/2025 7:42 PM EDT [facility] Specimen Type POC Capillary 05/12/2025 7:42 PM EDT [facility] Blood Capillary blood specimen / Unknown 05/12/2025 7:40 PM EDT 05/12/2025 7:42 PM EDT Selin Lee MD LAB POINT OF CARE TE ST DOCKED DEVICE UNSOLICITED RESULTS Final Result Performing Organization Address [facility] Co de Phone Number [facility] [address] [place] [address] * (ABNORMAL) POCT glucose meter (05/12/2025 4:36 PM EDT) Pathologist [facility] POCT Glucose 235(H) 74 - 99 mg/dL [...] Comment 05/12/2025 4:38 PM EDT HEALTHCARE LAB Health Plan Manager ID Char Hinojosa 05/12/2025 4:38 PM EDT HEALTHCARE LAB Device ID [id number] 05/12/2025 4:38 PM EDT [facility] Specimen Type POC Capillary 05/12/2025 4:38 PM EDT [facility] Blood Capillary blood specimen / Unknown 05/12/2025 4:36 PM EDT 05/12/2025 4:38 PM EDT us Selin Lee MD LAB POINT OF CARE TE ST DOCKED DEVICE UNSOLICITED RESULTS Final Result Performing Organization Address City/[facility] Co de Phone Number [facility]ALTH[facility]ARE [facility] [address] [place] [address] * (ABNORMAL) POCT glucose meter (05/12/2025 11:30 AM EDT) Pathologist [facility] POCT Glucose 315(H) 74 - 99 mg/dL [...] Comment 05/12/2025 11:32 AM EDT [facility]ALTH[facility]ARE LAB Health Plan Manager ID Char Hinojosa 05/12/2025 11:32 AM EDT HEALTHCARE LAB Device ID [id number] 05/12/2025 11:32 AM EDT [facility]ALTH[facility]ARE [facility] Specimen Type POC Capillary 05/12/2025 11:32 AM EDT [facility] Blood Capillary blood specimen / Unknown 05/12/2025 11:30 AM EDT 05/12/2025 11:32 AM EDT us Selin Lee MD LAB POINT OF CARE TE ST DOCKED DEVICE UNSOLICITED RESULTS Final Result Performing Organization Address [facility] de Phone Number HEALTHCARE LAB [address] [place] [address] * (ABNORMAL) POCT glucose meter (05/12/2025 8:08 [...] Comment 05/12/2025 8:10 AM EDT [facility]ALTH[facility]ARE [facility] Health Plan Manager ID Char Hinojosa 05/12/2025 8:10 AM EDT HEALTHCARE LAB Device ID [id number] 05/12/2025 8:10 AM EDT HEALTHCARE LAB Specimen Type POC Capillary 05/12/2025 8:10 AM EDT [facility] Blood Capillary blood specimen / Unknown 05/12/2025 8:08 AM EDT 05/12/2025 8:10 AM EDT us Selin Lee MD LAB POINT OF CARE TE ST DOCKED DEVICE UNSOLICITED RESULTS Final Result Performing Organization Address City/[facility] Co de Phone Number [facility] [address] [place] [id number] * (ABNORMAL) CBC and Differential (05/12/2025 3:56 AM EDT) [facility] Signature WBC Count 7.24 3.70 - 10.30 10*3/uL LAB HEMATOLOGY METHOD 05/12/2025 4:15 AM EDT [facility] RBC Count 4.28(L) 4.60 - 6.10 10*6/uL LAB HEMATOLOGY METHOD 05/12/2025 4:15 AM EDT [facility] HGB 9.4(L) 13.7 - 17.5 g/dL LAB HEMATOLOGY METHOD 05/12/2025 4:15 AM EDT [facility] HCT 31.8(L) 40.0 - 51.0 % LAB HEMATOLOGY METHOD 05/12/2025 4:15 AM EDT [facility] Platelet Count 266 155 - 369 10*3/uL LAB HEMATOLOGY METHOD 05/12/2025 4:15 AM EDT [facility] MCV 74(L) 79 - 98 fL LAB HEMATOLOGY METHOD 05/12/2025 4:15 AM EDT [facility] MCH 22.0(L) 26.0 - 32.0 pg LAB HEMATOLOGY METHOD 05/12/2025 4:15 AM EDT [facility] MCHC 29.6(L) 30.7 - 35.5 g/dL LAB HEMATOLOGY METHOD 05/12/2025 4:15 AM EDT [facility] RDW 18.0(H) 11.5 - 14.5 % LAB HEMATOLOGY METHOD 05/12/2025 4:15 AM EDT [facility] MPV 9.6 8.8 - 12.5 fL LAB HEMATOLOGY METHOD 05/12/2025 4:15 AM EDT [facility] nRBC 0.0 <=0.0 per 100 WBCs LAB HEMATOLOGY METHOD 05/12/2025 4:15 AM EDT [facility] Differential Type Automated LAB HEMATOLOGY METHOD 05/12/2025 4:15 AM EDT [facility] Neutrophils % 71 % LAB HEMATOLOGY METHOD 05/12/2025 4:15 AM EDT [facility] Lymphocytes % 16 % LAB HEMATOLOGY METHOD 05/12/2025 4:15 AM EDT [facility] Monocytes % 9 % LAB HEMATOLOGY METHOD 05/12/2025 4:15 AM EDT [facility] Eosinophils % 3 % LAB HEMATOLOGY METHOD 05/12/2025 4:15 AM EDT [facility] Basophils % 1 % LAB HEMATOLOGY METHOD 05/12/2025 4:15 AM EDT [facility] Immature Granulocytes % 0 % LAB HEMATOLOGY METHOD 05/12/2025 4:15 AM EDT [facility] Neutrophils Absolute 5.14 1.60 - 6.10 10*3/uL LAB HEMATOLOGY METHOD 05/12/2025 4:15 AM EDT [facility] Lymphocytes Absolute 1.15(L) 1.20 - 3.90 10*3/uL LAB HEMATOLOGY METHOD 05/12/2025 4:15 AM EDT [facility] Monocytes Absolute 0.66 0.30 - 0.90 10*3/uL LAB HEMATOLOGY METHOD 05/12/2025 4:15 AM EDT [facility] Eosinophils Absolute 0.22 0.00 - 0.50 10*3/uL LAB HEMATOLOGY METHOD 05/12/2025 4:15 AM EDT [facility] Basophils Absolute 0.05 0.00 - 0.10 10*3/uL LAB HEMATOLOGY METHOD 05/12/2025 4:15 AM EDT [facility] Immature Granulocytes Absolute 0.02 0.00 - 0.06 10*3/uL LAB HEMATOLOGY METHOD 05/12/2025 4:15 AM EDT [facility] Blood Venous blood specimen / Unknown Venipuncture / Unknown 05/12/2025 3:56 AM EDT 05/12/2025 4:03 AM EDT Narrative [facility] - 05/12/2025 4:15 AM EDT Therapeutic decision making should be based on absolute values, rather than percentages. us Selin Lee MD LAB BLOOD ORDERABLES Final Re sult [facility] [address] [place] [address] * (ABNORMAL) Magnesium, Plasma (05/12/2025 3:56 AM EDT) Magnesium, Plasma 1.7(L) 1.9 - 2.4 mg/dL 05/12/2025 4:36 AM EDT [facility] Blood Venous blood specimen / Unknown Venipuncture / Unknown 05/12/2025 3:56 AM EDT 05/12/2025 4:03 AM EDT us Selin Lee MD LAB BLOOD ORDERABLES Final Re sult [facility] [address] [place] [address] * (ABNORMAL) Basic Metabolic Panel, Plasma (05/12/2025 3:56 AM EDT) Glucose, Plasma 383(H) 74 - 99 mg/dL 05/12/2025 4:36 AM EDT [facility] BUN, Plasma 18 7 - 21 mg/dL 05/12/2025 4:36 AM EDT [facility] Creatinine, Plasma 0.86 0.70 - 1.20 mg/dL 05/12/2025 4:36 AM EDT [facility] BUN/Creatinine Ratio 21 05/12/2025 4:36 AM EDT [facility] Sodium, Plasma 130(L) 136 - 145 mmol/L 05/12/2025 4:36 AM EDT [facility] Potassium, Plasma 3.2(L) 3.6 - 4.9 mmol/L 05/12/2025 4:36 AM EDT [facility] Chloride, Plasma 85(L) 97 - 107 mmol/L 05/12/2025 4:36 AM EDT [facility] CO2, Plasma 36(H) 22 - 29 mmol/L 05/12/2025 4:36 AM EDT [facility] Anion Gap 9 6 - 16 mmol/L 05/12/2025 4:36 AM EDT [facility] Total Calcium, Plasma 8.9 8.9 - 10.2 mg/dL 05/12/2025 4:36 AM EDT [facility] eGFRcr 107.5 mL/min/1.7 3m*2 05/12/2025 4:36 AM EDT [facility] Comment:Reported eGFRcr in m L/min/1.73m2 is based the CKD-EPI 2020 equation that does not use a race coefficient. Blood Venous blood specimen / Unknown Venipuncture / Unknown 05/12/2025 3:56 AM EDT 05/12/2025 4:03 AM EDT us Selin Lee MD LAB BLOOD ORDERABLES Final Re sult Performing Organization Address [facility] [place] [address] * Phosphorus, Plasma (05/12/2025 3:56 AM EDT) Pathologist [facility] Phosphorus, Plasma 2.8 2.5 - 4.5 mg/dL 05/12/2025 4:36 AM EDT [facility] Blood Venous blood specimen / Unknown Venipuncture / Unknown 05/12/2025 3:56 AM EDT 05/12/2025 4:03 AM EDT us Selin Lee MD LAB BLOOD ORDERABLES Final Re sult Performing Organization Address [facility] [place] [address] * (ABNORMAL) POCT glucose meter (05/12/2025 3:11 AM EDT) [facility] POCT Glucose 348(H) 74 - [...] 05/12/2025 3:13 AM EDT [facility] Health Plan Manager ID Mathew Edshuterikigus 05/12/2025 3:13 AM EDT [facility] Device ID [id number] 05/12/2025 3:13 AM EDT HEALTHCARE LAB Specimen Type POC Capillary 05/12/2025 3:13 AM EDT [facility]ALTH[facility] Blood Capillary blood specimen / Unknown 05/12/2025 3:11 AM EDT 05/12/2025 3:13 AM EDT us Selin Lee MD LAB POINT OF CARE TE ST DOCKED DEVICE UNSOLICITED RESULTS Final Result Performing Organization Address City/[facility] Co de Phone Number [facility]ALTHCARE [facility] [address] [place] [address] * (ABNORMAL) POCT glucose meter (05/11/2025 7:57 [...] Comment 05/11/2025 8:02 PM EDT [facility]ALTH[facility]ARE LAB Health Plan Manager ID Mathew Edshuterikigus 05/11/2025 8:02 PM EDT HEALTH[facility]ARE LAB Device ID [id number] 05/11/2025 8:02 PM EDT [facility]ALTH[facility]ARE [facility] Specimen Type POC Capillary 05/11/2025 8:02 PM EDT [facility] Blood Capillary blood specimen / Unknown 05/11/2025 7:57 PM EDT 05/11/2025 8:02 PM EDT us Selin Lee MD LAB POINT OF CARE TE ST DOCKED DEVICE UNSOLICITED RESULTS Final Result [facility] [address] [place] [address] * (ABNORMAL) POCT glucose meter (05/11/2025 5:05 [...] Comment 05/11/2025 5:07 PM EDT [facility]ALTH[facility]ARE LAB Health Plan Manager ID Char Hinojosa 05/11/2025 5:07 PM EDT HEALTHCARE LAB Device ID [id number] 05/11/2025 5:07 PM EDT [facility]ALTH[facility]ARE [facility] Specimen Type POC Capillary 05/11/2025 5:07 PM EDT [facility] Blood Capillary blood specimen / Unknown 05/11/2025 5:05 PM EDT 05/11/2025 5:07 PM EDT us Selin Lee MD LAB POINT OF CARE TE ST DOCKED DEVICE UNSOLICITED RESULTS Final Result Performing Organization Address City/State/[facility] Co de Phone Number HEALTHCARE LAB [address] [place] [address] * (ABNORMAL) POCT glucose meter (05/11/2025 12:13 [...] Comment 05/11/2025 12:15 PM EDT [facility]ARE [facility] Health Plan Manager ID Char Hinojosa 05/11/2025 12:15 PM EDT HEALTH[facility]ARE LAB Device ID [id number] 05/11/2025 12:15 PM EDT [facility]ALTH[facility]ARE [facility] Specimen Type POC Capillary 05/11/2025 12:15 PM EDT [facility] Blood Capillary blood specimen / Unknown 05/11/2025 12:13 PM EDT 05/11/2025 12:15 PM EDT us Selin Lee MD LAB POINT OF CARE TE ST DOCKED DEVICE UNSOLICITED RESULTS Final Result Performing Organization Address City/[facility] Co de Phone Number [facility] [address] [place] [address] * (ABNORMAL) POCT glucose meter (05/11/2025 7:57 AM EDT) [facility] POCT Glucose 318(H) 74 - 99 mg/dL [...] for testing. Comment 05/11/2025 7:59 AM EDT [facility] Health Plan Manager ID Char Hinojosa 05/11/2025 7:59 AM EDT [facility] Device ID [id number] 05/11/2025 7:59 AM EDT [facility] Specimen Type POC Capillary 05/11/2025 7:59 AM EDT [facility] Blood Capillary blood specimen / Unknown 05/11/2025 7:57 AM EDT 05/11/2025 7:59 AM EDT Selin Lee MD LAB POINT OF CARE TE ST DOCKED DEVICE UNSOLICITED RESULTS Final Result Performing Organization Address City/[facility] Co de Phone Number [facility] [address] [place] [address] * ECG Adult (05/11/2025 6:11 AM EDT) [facility] EKG DIAGNOSIS CLASS Abnormal MUSE ECG Ventricular Rate 59 BPM MUSE ECG Atrial Rate 59 BPM MUSE ECG [place] Interval 176 ms MUSE ECG QRSD Interval 160 ms MUSE ECG QT Interval 520 ms MUSE ECG QTC Interval 514 ms MUSE ECG P [place] 21 degrees MUSE ECG R [place] -32 degrees MUSE ECG T Wave [place] -9 degrees MUSE ECG Diagnosis Sinus bradycardia [...] MUSE ECG Diagnosis Confirmed by Tone Lainez ([id number]) on 05/12/2025 11:35:23 AM MUSE ECG 05/11/2025 6:11 AM EDT 05/12/2025 11:35 AM EDT us Selin Lee MD ECG ORDERABLES Final Result Performing Organization Address City/[facility]/ZIP Co de Phone Number MUSE ECG * [...] Comment 05/11/2025 3:45 AM EDT [facility]ALTHCARE LAB Health Plan Manager ID Kaylin Barron 05/11/2025 3:45 AM EDT HEALTHCARE LAB Device ID [id number] 05/11/2025 3:45 AM EDT [facility] Specimen Type POC Capillary 05/11/2025 3:45 AM EDT [facility] Blood Capillary blood specimen / Unknown 05/11/2025 3:42 AM EDT 05/11/2025 3:45 AM EDT us Selin Lee MD LAB POINT OF CARE TE ST DOCKED DEVICE UNSOLICITED RESULTS Final Result Performing Organization Address City/[facility]/ZIP Co de Phone Number [facility] [address] [place] [address] * (ABNORMAL) CBC and Differential (05/11/2025 3:24 AM EDT) WBC Count 6.72 3.70 - 10.30 10*3/uL LAB HEMATOLOGY METHOD 05/11/2025 3:42 AM EDT [facility] RBC Count 4.13(L) 4.60 - 6.10 10*6/uL LAB HEMATOLOGY METHOD 05/11/2025 3:42 AM EDT [facility] HGB 9.5(L) 13.7 - 17.5 g/dL LAB HEMATOLOGY METHOD 05/11/2025 3:42 AM EDT [facility] HCT 31.1(L) 40.0 - 51.0 % LAB HEMATOLOGY METHOD 05/11/2025 3:42 AM EDT [facility] Platelet Count 253 155 - 369 10*3/uL LAB HEMATOLOGY METHOD 05/11/2025 3:42 AM EDT [facility] MCV 75(L) 79 - 98 fL LAB HEMATOLOGY METHOD 05/11/2025 3:42 AM EDT [facility] MCH 23.0(L) 26.0 - 32.0 pg LAB HEMATOLOGY METHOD 05/11/2025 3:42 AM EDT [facility] MCHC 30.5(L) 30.7 - 35.5 g/dL LAB HEMATOLOGY METHOD 05/11/2025 3:42 AM EDT [facility] RDW 17.8(H) 11.5 - 14.5 % LAB HEMATOLOGY METHOD 05/11/2025 3:42 AM EDT [facility] MPV 9.5 8.8 - 12.5 fL LAB HEMATOLOGY METHOD 05/11/2025 3:42 AM EDT [facility] nRBC 0.0 <=0.0 per 100 WBCs LAB HEMATOLOGY METHOD 05/11/2025 3:42 AM EDT [facility] Differential Type Automated LAB HEMATOLOGY METHOD 05/11/2025 3:42 AM EDT [facility] Neutrophils % 68 % LAB HEMATOLOGY METHOD 05/11/2025 3:42 AM EDT [facility] Lymphocytes % 17 % LAB HEMATOLOGY METHOD 05/11/2025 3:42 AM EDT [facility] Monocytes % 11 % LAB HEMATOLOGY METHOD 05/11/2025 3:42 AM EDT [facility] Eosinophils % 3 % LAB HEMATOLOGY METHOD 05/11/2025 3:42 AM EDT [facility] Basophils % 1 % LAB HEMATOLOGY METHOD 05/11/2025 3:42 AM EDT [facility] Immature Granulocytes % 0 % LAB HEMATOLOGY METHOD 05/11/2025 3:42 AM EDT [facility] Neutrophils Absolute 4.61 1.60 - 6.10 10*3/uL LAB HEMATOLOGY METHOD 05/11/2025 3:42 AM EDT [facility] Lymphocytes Absolute 1.11(L) 1.20 - 3.90 10*3/uL LAB HEMATOLOGY METHOD 05/11/2025 3:42 AM EDT [facility] Monocytes Absolute 0.72 0.30 - 0.90 10*3/uL LAB HEMATOLOGY METHOD 05/11/2025 3:42 AM EDT [facility] Eosinophils Absolute 0.21 0.00 - 0.50 10*3/uL LAB HEMATOLOGY METHOD 05/11/2025 3:42 AM EDT [facility] Basophils Absolute 0.05 0.00 - 0.10 10*3/uL LAB HEMATOLOGY METHOD 05/11/2025 3:42 AM EDT [facility] Immature Granulocytes Absolute 0.02 0.00 - 0.06 10*3/uL LAB HEMATOLOGY METHOD 05/11/2025 3:42 AM EDT [facility] Blood Venous blood specimen / Unknown Venipuncture / Unknown 05/11/2025 3:24 AM EDT 05/11/2025 3:30 AM EDT Narrative [facility] - 05/11/2025 3:42 AM EDT Therapeutic decision making should be based on absolute values, rather than percentages. us Selin Lee MD LAB BLOOD ORDERABLES Final Re sult [facility] [address] [place] [address] * (ABNORMAL) Magnesium, Plasma (05/11/2025 3:24 AM EDT) Magnesium, Plasma 1.8(L) 1.9 - 2.4 mg/dL 05/11/2025 3:58 AM EDT [facility] Blood Venous blood specimen / Unknown Venipuncture / Unknown 05/11/2025 3:24 AM EDT 05/11/2025 3:30 AM EDT us Selin Lee MD LAB BLOOD ORDERABLES Final Re sult [facility] [address] [place] [address] * (ABNORMAL) Basic Metabolic Panel, Plasma (05/11/2025 3:24 AM EDT) Glucose, Plasma 338(H) 74 - 99 mg/dL 05/11/2025 3:58 AM EDT [facility] BUN, Plasma 18 7 - 21 mg/dL 05/11/2025 3:58 AM EDT [facility] Creatinine, Plasma 0.86 0.70 - 1.20 mg/dL 05/11/2025 3:58 AM EDT [facility] BUN/Creatinine Ratio 21 05/11/2025 3:58 AM EDT [facility] Sodium, Plasma 131(L) 136 - 145 mmol/L 05/11/2025 3:58 AM EDT [facility] Potassium, Plasma 3.2(L) 3.6 - 4.9 mmol/L 05/11/2025 3:58 AM EDT [facility] Chloride, Plasma 85(L) 97 - 107 mmol/L 05/11/2025 3:58 AM EDT [facility] CO2, Plasma 39(H) 22 - 29 mmol/L 05/11/2025 3:58 AM EDT [facility] Anion Gap 7 6 - 16 mmol/L 05/11/2025 3:58 AM EDT [facility] Total Calcium, Plasma 9.1 8.9 - 10.2 mg/dL 05/11/2025 3:58 AM EDT [facility] eGFRcr 107.5 mL/min/1.7 3m*2 05/11/2025 3:58 AM EDT [facility] Comment:Reported eGFRcr in m L/min/1.73m2 is based the CKD-EPI 2020 equation that does not use a race coefficient. Blood Venous blood specimen / Unknown Venipuncture / Unknown 05/11/2025 3:24 AM EDT 05/11/2025 3:30 AM EDT us Selin Lee MD LAB BLOOD ORDERABLES Final Re sult Performing Organization Address City/[facility]/ZIP Co de Phone Number [facility] [address] [place] [address] * Phosphorus, Plasma (05/11/2025 3:24 AM EDT) [facility] Phosphorus, Plasma 3.1 2.5 - 4.5 mg/dL 05/11/2025 3:58 AM EDT [facility] Blood Venous blood specimen / Unknown Venipuncture / Unknown 05/11/2025 3:24 AM EDT 05/11/2025 3:30 AM EDT us Selin Lee MD LAB BLOOD ORDERABLES Final Re sult Performing Organization Address City/[facility]/ZIP Co de Phone Number [facility] [address] [place] [address] * (ABNORMAL) POCT glucose meter (05/10/2025 7:07 PM EDT) [facility] POCT Glucose 398(H) 74 - [...] 05/10/2025 7:10 PM EDT [facility] Health Plan Manager ID Char Hinojosa 05/10/2025 7:10 PM EDT [facility] Device ID [id number] 05/10/2025 7:10 PM EDT [facility] Specimen Type POC Capillary 05/10/2025 7:10 PM EDT [facility] Blood Capillary blood specimen / Unknown 05/10/2025 7:07 PM EDT 05/10/2025 7:10 PM EDT us Selin Lee MD LAB POINT OF CARE TE ST DOCKED DEVICE UNSOLICITED RESULTS Final Result Performing Organization Address [facility]/ZIP Co de Phone Number [facility] [address] [place] [address] * (ABNORMAL) POCT glucose meter (05/10/2025 4:55 PM EDT) [facility] POCT Glucose 418(H) 74 - [...] Comment 05/10/2025 4:57 PM EDT [facility] Health Plan Manager ID Char Hinojosa 05/10/2025 4:57 PM EDT [facility] Device ID [id number] 05/10/2025 4:57 PM EDT [facility] Specimen Type POC Capillary 05/10/2025 4:57 PM EDT [facility] Blood Capillary blood specimen / Unknown 05/10/2025 4:55 PM EDT 05/10/2025 4:57 PM EDT Selin Lee MD LAB POINT OF CARE TE ST DOCKED DEVICE UNSOLICITED RESULTS Final Result Performing Organization Address City/[facility]/ZIP Co de Phone Number [facility] [address] [place] [address] * (ABNORMAL) POCT glucose meter (05/10/2025 11:41 AM EDT) [facility] POCT Glucose 348(H) 74 - [...] 05/10/2025 11:43 AM EDT [facility] Health Plan Manager ID Char Hinojosa 05/10/2025 11:43 AM EDT [facility] Device ID [id number] 05/10/2025 11:43 AM EDT [facility] Specimen Type POC Capillary 05/10/2025 11:43 AM EDT [facility] Blood Capillary blood specimen / Unknown 05/10/2025 11:41 AM EDT 05/10/2025 11:43 AM EDT Selin Lee MD LAB POINT OF CARE TE ST DOCKED DEVICE UNSOLICITED RESULTS Final Result [facility] [address] [place] [address] * ECG 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/2025 11:20 AM EDT) EKG DIAGNOSIS CLASS Abnormal MUSE ECG Ventricular Rate 65 BPM MUSE ECG Atrial Rate 65 BPM MUSE ECG AZ Interval 198 ms MUSE ECG QRSD Interval 154 ms MUSE ECG QT Interval 508 ms MUSE ECG QTC Interval 528 ms MUSE ECG P [place] 66 degrees MUSE ECG R [place] -39 degrees MUSE ECG T Wave [place] -16 degrees MUSE ECG Diagnosis Normal sinus rhythm with sinus arrhythmia MUSE ECG Diagnosis Left axis deviation MUSE ECG Diagnosis Right bundle branch block MUSE ECG Diagnosis Minimal voltage criteria for LVH, may be normal variant ( R in aVL ) MUSE ECG Diagnosis Abnormal ECG MUSE ECG Diagnosis MUSE ECG Diagnosis Confirmed by Manas Mccauley ([id number]) on 05/10/2025 3:20:48 PM MUSE ECG 05/10/2025 11:2 0 AM EDT 05/10/2025 3:20 PM EDT Selin Lee MD ECG ORDERABLES Final Result MUSE ECG * (ABNORMAL) POCT glucose meter (05/10/2025 7:30 AM EDT) Pathologist [facility] POCT Glucose 332(H) 74 - 99 mg/dL [...] Comment 05/10/2025 7:33 AM EDT [facility] Health Plan Manager ID Char Hinojosa 05/10/2025 7:33 AM EDT [facility] Device ID [id number] 05/10/2025 7:33 AM EDT [facility] Specimen Type POC Capillary 05/10/2025 7:33 AM EDT [facility] Blood Capillary blood specimen / Unknown 05/10/2025 7:30 AM EDT 05/10/2025 7:33 AM EDT us Selin Lee MD LAB POINT OF CARE TE ST DOCKED DEVICE UNSOLICITED RESULTS Final Result Performing Organization Address City/[facility]/ZIP Co de Phone Number [facility] [address] [place] [address] * ECG 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/2025 6:14 AM EDT) EKG DIAGNOSIS CLASS Abnormal MUSE ECG Ventricular Rate 56 BPM MUSE ECG Atrial Rate 56 BPM MUSE ECG AZ Interval 196 ms MUSE ECG QRSD Interval 164 ms MUSE ECG QT Interval 508 ms MUSE ECG QTC Interval 490 ms MUSE ECG P [place] 74 degrees MUSE ECG R [place] -33 degrees MUSE ECG T Wave [place] -10 degrees MUSE ECG Diagnosis Sinus bradycardia [...] glucose meter (05/10/2025 4:00 AM EDT) Pathologist [facility] POCT Glucose 377(H) 74 - 99 mg/dL [...] Comment 05/10/2025 4:02 AM EDT [facility] Health Plan Manager ID Maribell Seaed 4:02 AM EDT [facility] Device ID [id number] 05/10/2025 4:02 AM EDT [facility] Specimen Type POC Capillary 05/10/2025 4:02 AM EDT [facility] Blood Capillary blood specimen / Unknown 05/10/2025 4:00 AM EDT 05/10/2025 4:02 AM EDT Diane Guzman MD LAB POINT OF CARE T EST DOCKED DEVICE UNSOLICITED RESULTS Final Result [facility] [address] [place] [address] * (ABNORMAL) POCT glucose meter (05/09/2025 8:37 PM EDT) [facility] POCT Glucose 296(H) 74 - [...] Comment 05/09/2025 8:39 PM EDT [facility] Health Plan Manager ID Maribell Saeed 8:39 PM EDT [facility] Device ID [id number] 05/09/2025 8:39 PM EDT [facility] Specimen Type POC Capillary 05/09/2025 8:39 PM EDT [facility] Blood Capillary blood specimen / Unknown 05/09/2025 8:37 PM EDT 05/09/2025 8:39 PM EDT us Diane Guzman MD LAB POINT OF CARE T EST DOCKED DEVICE UNSOLICITED RESULTS Final Result Performing Organization Address City/[facility]/ZIP Co de Phone Number [facility] [address] [place] [address] * Magnesium (05/09/2025 5:54 PM EDT) Magnesium, Plasma 1.9 1.9 - 2.4 mg/dL 05/09/2025 6:56 PM EDT [facility] Blood Venous blood specimen / Unknown Venipuncture / Unknown 05/09/2025 5:54 PM EDT 05/09/2025 6:25 PM EDT us Selin Lee MD LAB BLOOD ORDERABLES Final Re sult Performing Organization Address City/[facility]/ZIP Co de Phone Number [facility] [address] [place] [address] * (ABNORMAL) Basic metabolic panel (05/09/2025 5:54 PM EDT) Glucose, Plasma 416(H) 74 - 99 mg/dL 05/09/2025 6:56 PM EDT [facility] BUN, Plasma 17 7 - 21 mg/dL 05/09/2025 6:56 PM EDT [facility] Creatinine, Plasma 0.81 0.70 - 1.20 mg/dL 05/09/2025 6:56 PM EDT [facility] BUN/Creatinine Ratio 21 05/09/2025 6:56 PM EDT [facility] Sodium, Plasma 130(L) 136 - 145 mmol/L 05/09/2025 6:56 PM EDT [facility] Potassium, Plasma 3.1(L) 3.6 - 4.9 mmol/L 05/09/2025 6:56 PM EDT [facility] Chloride, Plasma 84(L) 97 - 107 mmol/L 05/09/2025 6:56 PM EDT [facility] CO2, Plasma 35(H) 22 - 29 mmol/L 05/09/2025 6:56 PM EDT [facility] Anion Gap 11 6 - 16 mmol/L 05/09/2025 6:56 PM EDT [facility] Total Calcium, Plasma 9.1 8.9 - 10.2 mg/dL 05/09/2025 6:56 PM EDT [facility] eGFRcr 109.4 mL/min/1.7 3m*2 05/09/2025 6:56 PM EDT [facility] Comment:Reported eGFRcr in m L/min/1.73m2 is based the CKD-EPI 2020 equation that does not use a race coefficient. Blood Venous blood specimen / Unknown Venipuncture / Unknown 05/09/2025 5:54 PM EDT 05/09/2025 6:25 PM EDT us Selin Lee MD LAB BLOOD ORDERABLES Final Re sult [facility] [address] [place] [address] * (ABNORMAL) POCT glucose meter (05/09/2025 5:17 [...] Comment 05/09/2025 5:20 PM EDT [facility] Health Plan Manager ID Char Hinojosa 05/09/2025 5:20 PM EDT [facility] Device ID [id number] 05/09/2025 5:20 PM EDT [facility] Specimen Type POC Capillary 05/09/2025 5:20 PM EDT [facility] Blood Capillary blood specimen / Unknown 05/09/2025 5:17 PM EDT 05/09/2025 5:20 PM EDT Diane Guzman MD LAB POINT OF CARE T EST DOCKED DEVICE UNSOLICITED RESULTS Final Result [facility] [address] [place] [address] * ECG Adult (05/09/2025 12:34 PM EDT) EKG DIAGNOSIS CLASS Abnormal MUSE ECG Ventricular Rate 75 BPM MUSE ECG Atrial Rate 75 BPM MUSE ECG AZ Interval 176 ms MUSE ECG QRSD Interval 164 ms MUSE ECG QT Interval 454 ms MUSE ECG QTC Interval 506 ms MUSE ECG P [place] 70 degrees MUSE ECG R [place] -38 degrees MUSE ECG T Wave [place] 2 degrees MUSE ECG Diagnosis Normal sinus [...] Result Performing Organization Address [facility] Co de Phone Number MUSE ECG * (ABNORMAL) POCT glucose meter (05/09/2025 12:25 PM EDT) Pathologist [facility] POCT Glucose 283(H) 74 - 99 mg/dL [...] 05/09/2025 12:27 PM EDT [facility] Health Plan Manager ID Dunia Montgomery 05/09/2025 12:27 PM EDT [facility] Device ID [id number] 05/09/2025 12:27 PM EDT [facility] Specimen Type POC Capillary 05/09/2025 12:27 PM EDT [facility] Blood Capillary blood specimen / Unknown 05/09/2025 12:25 PM EDT 05/09/2025 12:27 PM EDT Diane Guzman MD LAB POINT OF CARE T EST DOCKED DEVICE UNSOLICITED RESULTS Final Result Performing Organization Address City/[facility] Co de Phone Number [facility] [address] [place] [address] * (ABNORMAL) POCT glucose meter (05/09/2025 7:52 [...] Comment 05/09/2025 7:54 AM EDT [facility] Health Plan Manager ID Char Hinojosa 05/09/2025 7:54 AM EDT [facility] Device ID [id number] 05/09/2025 7:54 AM EDT [facility] Specimen Type POC Capillary 05/09/2025 7:54 AM EDT [facility] Blood Capillary blood specimen / Unknown 05/09/2025 7:52 AM EDT 05/09/2025 7:54 AM EDT us Diane Guzman MD LAB POINT OF CARE T EST DOCKED DEVICE UNSOLICITED RESULTS Final Result Performing Organization Address City/[facility] Co de Phone Number [facility] [address] [place] [address] * (ABNORMAL) POCT glucose meter (05/08/2025 11:54 [...] 05/08/2025 11:56 PM EDT [facility] Health Plan Manager ID Kaylin Barron 05/08/2025 11:56 PM EDT [facility] Device ID [id number] 05/08/2025 11:56 PM EDT [facility] Specimen Type POC Capillary 05/08/2025 11:56 PM EDT [facility] Blood Capillary blood specimen / Unknown 05/08/2025 11:54 PM EDT 05/08/2025 11:56 PM EDT Diane Guzman MD LAB POINT OF CARE T EST DOCKED DEVICE UNSOLICITED RESULTS Final Result Performing Organization Address City/State/[facility] Co de Phone Number [facility] [address] [place] [address] * (ABNORMAL) POCT glucose meter (05/08/2025 7:33 PM EDT) [facility] POCT Glucose 310(H) 74 - 99 [...] 05/08/2025 7:35 PM EDT [facility] Health Plan Manager ID Kaylin Barron 05/08/2025 7:35 PM EDT [facility] Device ID [id number] 05/08/2025 7:35 PM EDT [facility] Specimen Type POC Capillary 05/08/2025 7:35 PM EDT [facility] Blood Capillary blood specimen / Unknown 05/08/2025 7:33 PM EDT 05/08/2025 7:35 PM EDT Diane Guzman MD LAB POINT OF CARE T EST DOCKED DEVICE UNSOLICITED RESULTS Final Result Performing Organization Address [facility] de Phone Number [facility] [address] [place] [address] * (ABNORMAL) POCT glucose meter (05/08/2025 5:00 PM EDT) [facility] POCT Glucose 347(H) 74 - [...] Comment 05/08/2025 5:02 PM EDT [facility] Health Plan Manager ID Char Hinojosa 05/08/2025 5:02 PM EDT [facility] Device ID [id number] 05/08/2025 5:02 PM EDT [facility] Specimen Type POC Capillary 05/08/2025 5:02 PM EDT [facility] Blood Capillary blood specimen / Unknown 05/08/2025 5:00 PM EDT 05/08/2025 5:02 PM EDT Diane Guzman MD LAB POINT OF CARE T EST DOCKED DEVICE UNSOLICITED RESULTS Final Result Performing Organization Address City/[facility] Co de Phone Number [facility] [address] [place] [address] * (ABNORMAL) POCT glucose meter (05/08/2025 11:42 AM EDT) [facility] POCT Glucose 298(H) 74 - [...] Comment 05/08/2025 11:44 AM EDT [facility] Health Plan Manager ID Char Hinojosa 05/08/2025 11:44 AM EDT [facility] Device ID [id number] 05/08/2025 11:44 AM EDT [facility] Specimen Type POC Capillary 05/08/2025 11:44 AM EDT [facility] Blood Capillary blood specimen / Unknown 05/08/2025 11:42 AM EDT 05/08/2025 11:44 AM EDT Diane Guzman MD LAB POINT OF CARE T EST DOCKED DEVICE UNSOLICITED RESULTS Final Result Performing Organization Address [facility] de Phone Number [facility] [address] [place] [address] * (ABNORMAL) POCT glucose meter (05/08/2025 8:05 [...] Comment 05/08/2025 8:07 AM EDT [facility] Health Plan Manager ID Char Hinojosa 05/08/2025 8:07 AM EDT [facility] Device ID [id number] 05/08/2025 8:07 AM EDT [facility] Specimen Type POC Capillary 05/08/2025 8:07 AM EDT [facility] Blood Capillary blood specimen / Unknown 05/08/2025 8:05 AM EDT 05/08/2025 8:07 AM EDT us Diane Guzman MD LAB POINT OF CARE T EST DOCKED DEVICE UNSOLICITED RESULTS Final Result Performing Organization Address [facility] Co de Phone Number [facility] [address] [place] [address] * (ABNORMAL) POCT glucose meter (05/08/2025 3:56 AM EDT) [facility] POCT Glucose 388(H) 74 - 99 [...] Comment 05/08/2025 3:58 AM EDT [facility] Health Plan Manager ID Stella Coleman 05/08/20 3:58 AM EDT [facility] Device ID [id number] 05/08/2025 3:58 AM EDT [facility] Specimen Type POC Capillary 05/08/2025 3:58 AM EDT [facility] Blood Capillary blood specimen / Unknown 05/08/2025 3:56 AM EDT 05/08/2025 3:58 AM EDT Diane Guzman MD LAB POINT OF CARE T EST DOCKED DEVICE UNSOLICITED RESULTS Final Result [facility] [address] [place] [address] * (ABNORMAL) POCT glucose meter (05/07/2025 8:14 PM EDT) [facility] POCT Glucose 392(H) 74 - [...] 05/07/2025 8:15 PM EDT [facility] Health Plan Manager ID Fela Coelho 05/07/2025 8:15 PM EDT [facility] Device ID [id number] 05/07/2025 8:15 PM EDT [facility] Specimen Type POC Capillary 05/07/2025 8:15 PM EDT [facility] Blood Capillary blood specimen / Unknown 05/07/2025 8:14 PM EDT 05/07/2025 8:15 PM EDT Diane Guzman MD LAB POINT OF CARE T EST DOCKED DEVICE UNSOLICITED RESULTS Final Result Performing Organization Address City/[facility]/ZIP Co de Phone Number [facility] [address] [place] [address] * (ABNORMAL) POCT glucose meter (05/07/2025 5:10 [...] Comment 05/07/2025 5:13 PM EDT [facility] Health Plan Manager ID Priyanka Negrete 05/07/20 5:13 PM EDT [facility] Device ID [id number] 05/07/2025 5:13 PM EDT [facility] Specimen Type POC Capillary 05/07/2025 5:13 PM EDT [facility] Blood Capillary blood specimen / Unknown 05/07/2025 5:10 PM EDT 05/07/2025 5:13 PM EDT Diane Guzman MD LAB POINT OF CARE T EST DOCKED DEVICE UNSOLICITED RESULTS Final Result Performing Organization Address City/[facility]/ZIP Co de Phone Number [facility] [address] [place] [address] * (ABNORMAL) POCT glucose meter (05/07/2025 12:04 [...] 05/07/2025 12:10 PM EDT [facility] Health Plan Manager ID Priyanka Negrete 05/07/20 12:10 PM EDT [facility] Device ID [id number] 05/07/2025 12:10 PM EDT [facility] Specimen Type POC Capillary 05/07/2025 12:10 PM EDT [facility] Blood Capillary blood specimen / Unknown 05/07/2025 12:04 PM EDT 05/07/2025 12:10 PM EDT Diane Guzman MD LAB POINT OF CARE T EST DOCKED DEVICE UNSOLICITED RESULTS Final Result Performing Organization Address City/State/[facility] Co de Phone Number [facility] [address] [place] [address] * (ABNORMAL) POCT glucose meter (05/07/2025 7:41 AM EDT) [facility] POCT Glucose 356(H) 74 - 99 [...] 05/07/2025 7:44 AM EDT [facility] Health Plan Manager ID Priyanka Negrete 05/07/20 7:44 AM EDT [facility] Device ID [id number] 05/07/2025 7:44 AM EDT [facility] Specimen Type POC Capillary 05/07/2025 7:44 AM EDT [facility] Blood Capillary blood specimen / Unknown 05/07/2025 7:41 AM EDT 05/07/2025 7:44 AM EDT Diane Guzman MD LAB POINT OF CARE T EST DOCKED DEVICE UNSOLICITED RESULTS Final Result Performing Organization Address City/[facility] Co de Phone Number [facility] [address] [place] [address] * (ABNORMAL) POCT glucose meter (05/07/2025 3:41 [...] for testing. Comment 05/07/2025 3:43 AM EDT [facility] Health Plan Manager ID Won Casas 05/07/2025 3:43 AM EDT [facility] Device ID [id number] 05/07/2025 3:43 AM EDT [facility] Specimen Type POC Capillary 05/07/2025 3:43 AM EDT [facility] Blood Capillary blood specimen / Unknown 05/07/2025 3:41 AM EDT 05/07/2025 3:43 AM EDT Diane Guzman MD LAB POINT OF CARE T EST DOCKED DEVICE UNSOLICITED RESULTS Final Result Performing Organization Address City/[facility] Co de Phone Number [facility] [address] [place] [address] * (ABNORMAL) POCT glucose meter (05/06/2025 8:01 [...] Comment 05/06/2025 8:02 PM EDT [facility] Health Plan Manager ID Won Casas 05/06/2025 8:02 PM EDT [facility] LAB Device ID [id number] 05/06/2025 8:02 PM EDT [facility] Specimen Type POC Capillary 05/06/2025 8:02 PM EDT [facility] Blood Capillary blood specimen / Unknown 05/06/2025 8:01 PM EDT 05/06/2025 8:02 PM EDT Diane Guzman MD LAB POINT OF CARE T EST DOCKED DEVICE UNSOLICITED RESULTS Final Result Performing Organization Address [facility] Co de Phone Number [facility] [address] [place] [address] * (ABNORMAL) POCT glucose meter (05/06/2025 4:40 PM EDT) [facility] POCT Glucose 212(H) 74 - [...] Comment 05/06/2025 4:46 PM EDT [facility] Health Plan Manager ID Sherrell Navarro 05/06/2025 4:46 PM EDT [facility] Device ID [id number] 05/06/2025 4:46 PM EDT [facility] Specimen Type POC Capillary 05/06/2025 4:46 PM EDT [facility] Blood Capillary blood specimen / Unknown 05/06/2025 4:40 PM EDT 05/06/2025 4:46 PM EDT Diane Guzman MD LAB POINT OF CARE T EST DOCKED DEVICE UNSOLICITED RESULTS Final Result Performing Organization Address City/[facility] Co de Phone Number [facility] [address] [place] [address] * PSA, diagnostic (05/06/2025 12:27 PM EDT) [facility] PSA, Diagnostic, Serum 0.03 0.00 - 2.50 ng/mL 05/06/2025 1:10 PM EDT [facility] Blood Venous blood specimen / Unknown Venipuncture / Unknown 05/06/2025 12:27 PM EDT 05/06/2025 12:33 PM EDT Narrative [facility] - 05/06/2025 1:10 PM EDT Performed by Bella electrochemiluminescent immunoassay which is standardized against the PSA [place] Reference Standard (WHO 96/670). Results obtained with different test methods or kits cannot be used interchangeably. us Diane Guzman MD LAB BLOOD ORDERABLES Final Result [facility] [address] [place] [address] * (ABNORMAL) POCT glucose meter (05/06/2025 11:28 AM EDT) [facility] POCT Glucose 337(H) 74 - [...] Comment 05/06/2025 11:30 AM EDT [facility] Health Plan Manager ID Sherrell Navarro 05/06/2025 11:30 AM EDT [facility] Device ID [id number] 05/06/2025 11:30 AM EDT [facility] Specimen Type POC Capillary 05/06/2025 11:30 AM EDT [facility] Blood Capillary blood specimen / Unknown 05/06/2025 11:28 AM EDT 05/06/2025 11:30 AM EDT Diane Guzman MD LAB POINT OF CARE T EST DOCKED DEVICE UNSOLICITED RESULTS Final Result Performing Organization Address [facility] Co de Phone Number [facility] [address] [place] [address] * (ABNORMAL) POCT glucose meter (05/06/2025 8:13 AM EDT) [facility] POCT Glucose 348(H) 74 - [...] Comment 05/06/2025 8:23 AM EDT [facility] Health Plan Manager ID Sherrell Navarro 05/06/2025 8:23 AM EDT [facility]ALTH[facility]ARE LAB Device ID [id number] 05/06/2025 8:23 AM EDT [facility] Specimen Type POC Capillary 05/06/2025 8:23 AM EDT [facility] Blood Capillary blood specimen / Unknown 05/06/2025 8:13 AM EDT 05/06/2025 8:23 AM EDT Diane Guzman MD LAB POINT OF CARE T EST DOCKED DEVICE UNSOLICITED RESULTS Final Result Performing Organization Address [facility] de Phone Number [facility] [address] [place] [address] * (ABNORMAL) POCT glucose meter (05/06/2025 3:09 AM EDT) [facility] POCT Glucose 364(H) 74 - [...] 05/06/2025 3:11 AM EDT [facility] Health Plan Manager ID Won Casas 05/06/2025 3:11 AM EDT [facility]ALTH[facility]ARE LAB Device ID [id number] 05/06/2025 3:11 AM EDT [facility]ARE [facility] Specimen Type POC Capillary 05/06/2025 3:11 AM EDT [facility] Blood Capillary blood specimen / Unknown 05/06/2025 3:09 AM EDT 05/06/2025 3:11 AM EDT Diane Guzman MD LAB POINT OF CARE T EST DOCKED DEVICE UNSOLICITED RESULTS Final Result Performing Organization Address City/[facility] Co de Phone Number [facility] [address] [place] [address] * (ABNORMAL) POCT glucose meter (05/05/2025 8:19 PM EDT) [facility] POCT Glucose 324(H) 74 - [...] Comment 05/05/2025 8:20 PM EDT [facility]ALTH[facility]ARE [facility] Health Plan Manager ID Won Casas 05/05/2025 8:20 PM EDT [facility]ALTH[facility]ARE LAB Device ID [id number] 05/05/2025 8:20 PM EDT [facility] Specimen Type POC Capillary 05/05/2025 8:20 PM EDT [facility] Blood Capillary blood specimen / Unknown 05/05/2025 8:19 PM EDT 05/05/2025 8:20 PM EDT Diane Guzman MD LAB POINT OF CARE T EST DOCKED DEVICE UNSOLICITED RESULTS Final Result Performing Organization Address City/[facility] Co de Phone Number [facility] [address] [place] [address] * (ABNORMAL) POCT glucose meter (05/05/2025 5:09 PM EDT) [facility] POCT Glucose 371(H) 74 - [...] Comment 05/05/2025 5:14 PM EDT [facility] Health Plan Manager ID Ramon Sherrell Black 05/05/2025 5:14 PM EDT [facility]ALTH[facility]ARE LAB Device ID [id number] 05/05/2025 5:14 PM EDT [facility]ALTH[facility] Specimen Type POC Capillary 05/05/2025 5:14 PM EDT [facility] Blood Capillary blood specimen / Unknown 05/05/2025 5:09 PM EDT 05/05/2025 5:14 PM EDT Diane Guzman MD LAB POINT OF CARE T EST DOCKED DEVICE UNSOLICITED RESULTS Final Result Performing Organization Address City/State/[facility] Co de Phone Number [facility] [address] [place] [address] * (ABNORMAL) POCT glucose meter (05/05/2025 11:29 AM EDT) [facility] POCT Glucose 292(H) 74 - 99 [...] Comment 05/05/2025 11:32 AM EDT [facility]ALTH[facility] Health Plan Manager ID Ramon Sherrell Black 05/05/2025 11:32 AM EDT [facility]ALTH[facility]ARE [facility] Device ID [id number] 05/05/2025 11:32 AM EDT [facility]ALTH[facility]ARE [facility] Specimen Type POC Capillary 05/05/2025 11:32 AM EDT [facility] Blood Capillary blood specimen / Unknown 05/05/2025 11:29 AM EDT 05/05/2025 11:32 AM EDT Diane Guzman MD LAB POINT OF CARE T EST DOCKED DEVICE UNSOLICITED RESULTS Final Result Performing Organization Address [facility] de Phone Number [facility] [address] [place] [address] * (ABNORMAL) POCT glucose meter (05/05/2025 7:55 [...] for testing. Comment 05/05/2025 7:57 AM EDT [facility] Health Plan Manager ID Sherrell Navarro 05/05/2025 7:57 AM EDT [facility] Device ID [id number] 05/05/2025 7:57 AM EDT [facility] Specimen Type POC Capillary 05/05/2025 7:57 AM EDT [facility] Blood Capillary blood specimen / Unknown 05/05/2025 7:55 AM EDT 05/05/2025 7:57 AM EDT Diane Guzman MD LAB POINT OF CARE T EST DOCKED DEVICE UNSOLICITED RESULTS Final Result Performing Organization Address City/[facility] Co de Phone Number [facility] [address] [place] [address] * (ABNORMAL) POCT glucose meter (05/04/2025 7:35 [...] Comment 05/04/2025 7:37 PM EDT [facility]ALTH[facility] Health Plan Manager ID Kaylin Barron 05/04/2025 7:37 PM EDT HEALTH[facility]ARE LAB Device ID [id number] 05/04/2025 7:37 PM EDT [facility]ALTH[facility] Specimen Type POC Capillary 05/04/2025 7:37 PM EDT [facility] Blood Capillary blood specimen / Unknown 05/04/2025 7:35 PM EDT 05/04/2025 7:37 PM EDT Diane Guzman MD LAB POINT OF CARE T EST DOCKED DEVICE UNSOLICITED RESULTS Final Result Performing Organization Address City/State/[facility] Co de Phone Number [facility] [address] [place] [address] * (ABNORMAL) POCT glucose meter (05/04/2025 4:51 PM EDT) [facility] POCT Glucose 233(H) 74 - [...] Comment 05/04/2025 4:53 PM EDT [facility] Health Plan Manager ID Araceli Doran 025 4:53 PM EDT HEALTHCARE LAB Device ID [id number] 05/04/2025 4:53 PM EDT [facility] Specimen Type POC Capillary 05/04/2025 4:53 PM EDT [facility] Blood Capillary blood specimen / Unknown 05/04/2025 4:51 PM EDT 05/04/2025 4:53 PM EDT us Diane Guzman MD LAB POINT OF CARE T EST DOCKED DEVICE UNSOLICITED RESULTS Final Result Performing Organization Address [facility] Co de Phone Number [facility] [address] [place] [address] * (ABNORMAL) POCT glucose meter (05/04/2025 11:51 AM EDT) Pathologist [facility] POCT Glucose 271(H) 74 - 99 mg/dL [...] Comment 05/04/2025 11:56 AM EDT [facility] Health Plan Manager ID Araceli Doran 11:56 AM EDT [facility]ALTH[facility]ARE [facility] Device ID [id number] 05/04/2025 11:56 AM EDT [facility] Specimen Type POC Capillary 05/04/2025 11:56 AM EDT [facility] Blood Capillary blood specimen / Unknown 05/04/2025 11:51 AM EDT 05/04/2025 11:56 AM EDT Diane Guzman MD LAB POINT OF CARE T EST DOCKED DEVICE UNSOLICITED RESULTS Final Result Performing Organization Address [facility] de Phone Number [facility] [address] [place] [address] * (ABNORMAL) POCT glucose meter (05/04/2025 8:09 AM EDT) Pathologist [facility] POCT Glucose 259(H) 74 - 99 mg/dL [...] 05/04/2025 8:17 AM EDT [facility] Health Plan Manager ID Araceli Doran 025 8:17 AM EDT [facility]ALTH[facility]ARE LAB Device ID [id number] 05/04/2025 8:17 AM EDT [facility] Specimen Type POC Capillary 05/04/2025 8:17 AM EDT [facility] Blood Capillary blood specimen / Unknown 05/04/2025 8:09 AM EDT 05/04/2025 8:17 AM EDT Diane Guzman MD LAB POINT OF CARE T EST DOCKED DEVICE UNSOLICITED RESULTS Final Result Performing Organization Address City/[facility] Co de Phone Number [facility] [address] [place] [address] * (ABNORMAL) POCT glucose meter (05/04/2025 4:44 AM EDT) [facility] POCT Glucose 335(H) 74 - [...] Comment 05/04/2025 4:46 AM EDT [facility]ALTH[facility] Health Plan Manager ID Kaylin Barron 05/04/2025 4:46 AM EDT HEALTH[facility]ARE LAB Device ID [id number] 05/04/2025 4:46 AM EDT [facility] Specimen Type POC Capillary 05/04/2025 4:46 AM EDT [facility] Blood Capillary blood specimen / Unknown 05/04/2025 4:44 AM EDT 05/04/2025 4:46 AM EDT Diane Guzman MD LAB POINT OF CARE T EST DOCKED DEVICE UNSOLICITED RESULTS Final Result Performing Organization Address City/[facility]/ZIP Co de Phone Number [facility] [address] [place] [address] * (ABNORMAL) POCT glucose meter (05/03/2025 7:27 PM EDT) [facility] POCT Glucose 331(H) 74 - 99 [...] Comment 05/03/2025 7:33 PM EDT [facility] Health Plan Manager ID Kaylin Barron 05/03/2025 7:33 PM EDT [facility]ARE LAB Device ID [id number] 05/03/2025 7:33 PM EDT [facility] Specimen Type POC Capillary 05/03/2025 7:33 PM EDT [facility] Blood Capillary blood specimen / Unknown 05/03/2025 7:27 PM EDT 05/03/2025 7:33 PM EDT Diane Guzman MD LAB POINT OF CARE T EST DOCKED DEVICE UNSOLICITED RESULTS Final Result [facility] [address] [place], [place] [id number] * (ABNORMAL) Comprehensive metabolic panel (05/03/2025 6:22 PM EDT) [facility] Glucose, Plasma 290(H) 74 - 99 mg/dL 05/03/2025 7:13 PM EDT [facility] BUN, Plasma 14 7 - 21 mg/dL 05/03/2025 7:13 PM EDT [facility] Creatinine, Plasma 0.71 0.70 - 1.20 mg/dL 05/03/2025 7:13 PM EDT [facility] BUN/Creatinine Ratio 20 05/03/2025 7:13 PM EDT [facility] Sodium, Plasma 133(L) 136 - 145 mmol/L 05/03/2025 7:13 PM EDT [facility] Potassium, Plasma 3.6 3.6 - 4.9 mmol/L 05/03/2025 7:13 PM EDT [facility] Chloride, Plasma 87(L) 97 - 107 mmol/L 05/03/2025 7:13 PM EDT [facility] CO2, Plasma 37(H) 22 - 29 mmol/L 05/03/2025 7:13 PM EDT [facility] Anion Gap 9 6 - 16 mmol/L 05/03/2025 7:13 PM EDT [facility] Total Calcium, Plasma 9.4 8.9 - 10.2 mg/dL 05/03/2025 7:13 PM EDT [facility] Total Protein 8.0(H) 6.3 - 7.9 g/dL 05/03/2025 7:13 PM EDT [facility] Albumin, Plasma 3.6 3.5 - 5.2 g/dL 05/03/2025 7:13 PM EDT [facility] AST, Plasma 18 10 - 50 U/L 05/03/2025 7:13 PM EDT [facility] ALT, Plasma 12 10 - 50 U/L 05/03/2025 7:13 PM EDT [facility] Alkaline Phosphatase, Plasma 64 40 - 115 U/L 05/03/2025 7:13 PM EDT [facility] Total Bilirubin, Plasma 0.7 0.2 - 1.1 mg/dL 05/03/2025 7:13 PM EDT [facility] eGFRcr 113.9 mL/min/1.7 3m*2 05/03/2025 7:13 PM EDT [facility] Comment:Reported eGFRcr in m L/min/1.73m2 is based the CKD-EPI 2020 equation that does not use a race coefficient. Blood Venous blood specimen / Unknown Venipuncture / Unknown 05/03/2025 6:22 PM EDT 05/03/2025 6:38 PM EDT us Diane Guzman MD LAB BLOOD ORDERABLES Final Result [facility] [address] [place] [address] * Creatine Kinase (CK), Total (05/03/2025 6:22 PM EDT) Creatine Kinase, Plasma 54 49 - 320 U/L 05/03/2025 7:13 PM EDT [facility] Blood Venous blood specimen / Unknown Venipuncture / Unknown 05/03/2025 6:22 PM EDT 05/03/2025 6:38 PM EDT Diane Guzman MD LAB BLOOD ORDERABLES Final Result Performing Organization Address City/[facility]/ZIP Co de Phone Number [facility] [address] [place] [address] * (ABNORMAL) POCT glucose meter (05/03/2025 5:30 [...] Comment 05/03/2025 5:33 PM EDT [facility] Health Plan Manager ID Dunia Montgomery 05/03/2025 5:33 PM EDT HEALTH[facility]ARE LAB Device ID [id number] 05/03/2025 5:33 PM EDT [facility] Specimen Type POC Capillary 05/03/2025 5:33 PM EDT [facility] Blood Capillary blood specimen / Unknown 05/03/2025 5:30 PM EDT 05/03/2025 5:33 PM EDT Diane Guzman MD LAB POINT OF CARE T EST DOCKED DEVICE UNSOLICITED RESULTS Final Result Performing Organization Address City/[facility]/ZIP Co de Phone Number [facility] [address] [place] [address] * (ABNORMAL) POCT glucose meter (05/03/2025 11:36 [...] Comment 05/03/2025 11:38 AM EDT [facility] Health Plan Manager ID Kindra Cardoza 05/03/2025 11:38 AM EDT [facility]ALTH[facility]ARE LAB Device ID [id number] 05/03/2025 11:38 AM EDT [facility]ALTH[facility] Specimen Type POC Capillary 05/03/2025 11:38 AM EDT [facility] Blood Capillary blood specimen / Unknown 05/03/2025 11:36 AM EDT 05/03/2025 11:38 AM EDT Diane Guzman MD LAB POINT OF CARE T EST DOCKED DEVICE UNSOLICITED RESULTS Final Result Performing Organization Address City/State/[facility] Co de Phone Number [facility] [address] [place] [address] * (ABNORMAL) POCT glucose meter (05/03/2025 8:09 AM EDT) [facility] Signature POCT Glucose 339(H) 74 - 99 [...] Comment 05/03/2025 8:11 AM EDT [facility] Health Plan Manager ID Dunia Montgomery 05/03/2025 8:11 AM EDT [facility]ALTH[facility]ARE LAB Device ID [id number] 05/03/2025 8:11 AM EDT [facility] Specimen Type POC Capillary 05/03/2025 8:11 AM EDT [facility] Blood Capillary blood specimen / Unknown 05/03/2025 8:09 AM EDT 05/03/2025 8:11 AM EDT Diane Guzman MD LAB POINT OF CARE T EST DOCKED DEVICE UNSOLICITED RESULTS Final Result Performing Organization Address City/[facility] Co de Phone Number [facility] [address] [place] [address] * (ABNORMAL) POCT glucose meter (05/03/2025 3:37 [...] Comment 05/03/2025 3:40 AM EDT [facility] Health Plan Manager ID Maribell Saeed 3:40 AM EDT HEALTH[facility]ARE LAB Device ID [id number] 05/03/2025 3:40 AM EDT [facility] Specimen Type POC Capillary 05/03/2025 3:40 AM EDT [facility] Blood Capillary blood specimen / Unknown 05/03/2025 3:37 AM EDT 05/03/2025 3:40 AM EDT Diane Guzman MD LAB POINT OF CARE T EST DOCKED DEVICE UNSOLICITED RESULTS Final Result Performing Organization Address City/[facility]/ZIP Co de Phone Number [facility] [address] [place] [address] * (ABNORMAL) CBC and Differential (05/03/2025 3:16 AM EDT) WBC Count 6.86 3.70 - 10.30 10*3/uL LAB HEMATOLOGY METHOD 05/03/2025 3:33 AM EDT [facility] RBC Count 3.82(L) 4.60 - 6.10 10*6/uL LAB HEMATOLOGY METHOD 05/03/2025 3:33 AM EDT [facility] HGB 8.9(L) 13.7 - 17.5 g/dL LAB HEMATOLOGY METHOD 05/03/2025 3:33 AM EDT [facility] HCT 29.2(L) 40.0 - 51.0 % LAB HEMATOLOGY METHOD 05/03/2025 3:33 AM EDT [facility] Platelet Count 202 155 - 369 10*3/uL LAB HEMATOLOGY METHOD 05/03/2025 3:33 AM EDT [facility] MCV 76(L) 79 - 98 fL LAB HEMATOLOGY METHOD 05/03/2025 3:33 AM EDT [facility] MCH 23.3(L) 26.0 - 32.0 pg LAB HEMATOLOGY METHOD 05/03/2025 3:33 AM EDT [facility] MCHC 30.5(L) 30.7 - 35.5 g/dL LAB HEMATOLOGY METHOD 05/03/2025 3:33 AM EDT [facility] RDW 18.8(H) 11.5 - 14.5 % LAB HEMATOLOGY METHOD 05/03/2025 3:33 AM EDT [facility] MPV 9.1 8.8 - 12.5 fL LAB HEMATOLOGY METHOD 05/03/2025 3:33 AM EDT [facility] nRBC 0.0 <=0.0 per 100 WBCs LAB HEMATOLOGY METHOD 05/03/2025 3:33 AM EDT [facility] Differential Type Automated LAB HEMATOLOGY METHOD 05/03/2025 3:33 AM EDT [facility] Neutrophils % 70 % LAB HEMATOLOGY METHOD 05/03/2025 3:33 AM EDT [facility] Lymphocytes % 15 % LAB HEMATOLOGY METHOD 05/03/2025 3:33 AM EDT [facility] Monocytes % 9 % LAB HEMATOLOGY METHOD 05/03/2025 3:33 AM EDT [facility] Eosinophils % 5 % LAB HEMATOLOGY METHOD 05/03/2025 3:33 AM EDT [facility] Basophils % 0 % LAB HEMATOLOGY METHOD 05/03/2025 3:33 AM EDT [facility] Immature Granulocytes % 1 % LAB HEMATOLOGY METHOD 05/03/2025 3:33 AM EDT [facility] Neutrophils Absolute 4.85 1.60 - 6.10 10*3/uL LAB HEMATOLOGY METHOD 05/03/2025 3:33 AM EDT [facility] Lymphocytes Absolute 1.03(L) 1.20 - 3.90 10*3/uL LAB HEMATOLOGY METHOD 05/03/2025 3:33 AM EDT [facility] Monocytes Absolute 0.59 0.30 - 0.90 10*3/uL LAB HEMATOLOGY METHOD 05/03/2025 3:33 AM EDT [facility] Eosinophils Absolute 0.32 0.00 - 0.50 10*3/uL LAB HEMATOLOGY METHOD 05/03/2025 3:33 AM EDT [facility] Basophils Absolute 0.03 0.00 - 0.10 10*3/uL LAB HEMATOLOGY METHOD 05/03/2025 3:33 AM EDT [facility] Immature Granulocytes Absolute 0.04 0.00 - 0.06 10*3/uL LAB HEMATOLOGY METHOD 05/03/2025 3:33 AM EDT [facility] Blood Venous blood specimen / Unknown Venipuncture / Unknown 05/03/2025 3:16 AM EDT 05/03/2025 3:25 AM EDT Narrative [facility] - 05/03/2025 3:33 AM EDT Therapeutic decision making should be based on absolute values, rather than percentages. us Marjorie Myers MD LAB BLOOD ORDERABLES Final Resul t [facility] [address] [place] [address] * (ABNORMAL) Basic Metabolic Panel, Plasma (05/03/2025 3:16 AM EDT) Glucose, Plasma 399(H) 74 - 99 mg/dL 05/03/2025 4:02 AM EDT [facility] BUN, Plasma 15 7 - 21 mg/dL 05/03/2025 4:02 AM EDT [facility] Creatinine, Plasma 0.78 0.70 - 1.20 mg/dL 05/03/2025 4:02 AM EDT [facility] BUN/Creatinine Ratio 19 05/03/2025 4:02 AM EDT [facility] Sodium, Plasma 136 136 - 145 mmol/L 05/03/2025 4:02 AM EDT [facility] Potassium, Plasma 3.6 3.6 - 4.9 mmol/L 05/03/2025 4:02 AM EDT [facility] Chloride, Plasma 90(L) 97 - 107 mmol/L 05/03/2025 4:02 AM EDT [facility] CO2, Plasma 37(H) 22 - 29 mmol/L 05/03/2025 4:02 AM EDT [facility] Anion Gap 9 6 - 16 mmol/L 05/03/2025 4:02 AM EDT [facility] Total Calcium, Plasma 9.0 8.9 - 10.2 mg/dL 05/03/2025 4:02 AM EDT [facility] eGFRcr 110.7 mL/min/1.7 3m*2 05/03/2025 4:02 AM EDT [facility] Comment:Reported eGFRcr in m L/min/1.73m2 is based the CKD-EPI 2020 equation that does not use a race coefficient. Blood Venous blood specimen / Unknown Venipuncture / Unknown 05/03/2025 3:16 AM EDT 05/03/2025 3:24 AM EDT Marjorie Myers MD LAB BLOOD ORDERABLES Final Resul t Performing Organization Address City/[facility]/ZIP Co de Phone Number [facility] [address] [place] [address] * (ABNORMAL) Magnesium, Plasma (05/03/2025 3:16 AM EDT) Magnesium, Plasma 1.7(L) 1.9 - 2.4 mg/dL 05/03/2025 4:02 AM EDT [facility] Blood Venous blood specimen / Unknown Venipuncture / Unknown 05/03/2025 3:16 AM EDT 05/03/2025 3:24 AM EDT Marjorie Myers MD LAB BLOOD ORDERABLES Final Resul t [facility] [address] [place] [address] * Phosphorus, Plasma (05/03/2025 3:16 AM EDT) Phosphorus, Plasma 3.6 2.5 - 4.5 mg/dL 05/03/2025 4:02 AM EDT [facility] Blood Venous blood specimen / Unknown Venipuncture / Unknown 05/03/2025 3:16 AM EDT 05/03/2025 3:24 AM EDT Marjorie Myers MD LAB BLOOD [place]AB[place] [address] * Hepatitis B Core Total Antibody IgG,IgM (05/03/2025 3:16 AM EDT) [facility] Hepatitis B Core Total Antibody IgG,IgM Negative Negative 05/03/2025 4:28 AM EDT [facility] Blood Venous blood specimen / Unknown Venipuncture / Unknown 05/03/2025 3:16 AM EDT 05/03/2025 3:24 AM EDT Diane Guzman MD LAB BLOOD ORDERABLES Final Result Performing Organization Address City/[facility]/[place] [address] * Hepatitis B Surface Antigen (05/03/2025 3:16 AM EDT) [facility] Hepatitis B Surf Antigen Negative Negative 05/03/2025 4:28 AM EDT [facility] Blood Venous blood specimen / Unknown Venipuncture / Unknown 05/03/2025 3:16 AM EDT 05/03/2025 3:24 AM EDT Diane Guzman MD LAB BLOOD ORDERABLES Final Result Performing Organization Address City/[facility]/[place] [address] * Hepatitis B Surface Antibody, Quantitative (05/03/2025 3:16 AM EDT) [facility] Hepatitis B Surface Antibody, Quantitative <8.00 NonReactiv e: <8, Grayzone: 8 - <12, Reactive: >= 12 mIU/mL 05/03/2025 4:28 AM EDT [facility] Comment: Nonreactive. Individual is considered not immune to HBV infection. Blood Venous blood specimen / Unknown Venipuncture / Unknown 05/03/2025 3:16 AM EDT 05/03/2025 3:24 AM EDT Diane Guzman MD LAB BLOOD ORDERABLES Final Result Performing Organization Address [facility] Co de Phone Number [facility] [address] [place] [address] * Hepatitis A Antibody IgG (05/03/2025 3:16 AM EDT) [facility] Hepatitis A Antibody IgG Negative Negative 05/03/2025 4:28 AM EDT [facility] Blood Venous blood specimen / Unknown Venipuncture / Unknown 05/03/2025 3:16 AM EDT 05/03/2025 3:24 AM EDT Diane Guzman MD LAB BLOOD ORDERABLES Final Result Performing Organization Address [facility] [place] [address] * (ABNORMAL) POCT glucose meter (05/02/2025 8:48 PM EDT) [facility] POCT Glucose 325(H) 74 - [...] 05/02/2025 8:50 PM EDT [facility] Health Plan Manager ID Maribell Saeed 8:50 PM EDT [facility] Device ID [id number] 05/02/2025 8:50 PM EDT [facility] Specimen Type POC Capillary 05/02/2025 8:50 PM EDT [facility] Blood Capillary blood specimen / Unknown 05/02/2025 8:48 PM EDT 05/02/2025 8:50 PM EDT Diane Guzman MD LAB POINT OF CARE T EST DOCKED DEVICE UNSOLICITED RESULTS Final Result Performing Organization Address City/[facility]/ZIP Co de Phone Number [facility]ALTH[facility]ARE [facility] [address] [place] [address] * (ABNORMAL) POCT glucose meter (05/02/2025 4:30 PM EDT) [facility] POCT Glucose 250(H) 74 - [...] for testing. Comment 05/02/2025 4:32 PM EDT [facility] Health Plan Manager ID Sebastián Kenny 4:32 PM EDT HEALTHCARE LAB Device ID [id number] 05/02/2025 4:32 PM EDT [facility] Specimen Type POC Capillary 05/02/2025 4:32 PM EDT [facility] Blood Capillary blood specimen / Unknown 05/02/2025 4:30 PM EDT 05/02/2025 4:32 PM EDT Diane Guzman MD LAB POINT OF CARE T EST DOCKED DEVICE UNSOLICITED RESULTS Final Result [facility] [address] [place] [address] * Nasopharyngeal Respiratory Panel (05/02/2025 1:05 PM EDT) [facility] Nasopharyngeal Respiratory PCR Interpretation Not Detected for all analytes Not Detected for all analytes 05/02/2025 3:14 PM EDT [facility] Swab Nasopharyngeal structure / Unknown Non-blood Collection / Unknown 05/02/2025 1:05 PM EDT 05/02/2025 1:12 PM EDT Narrative [facility] - 05/02/2025 3:14 PM [...] Respiratory PCR Panel is performed using the Physihomelex instrument. This test is FDA approved for use with Nasopharyngeal swabs only. This test is used for clinical purposes. It should not be regarded as investigational or for research. The [facility] Clinical Microbiology Laboratory is certified under the Clinical Laboratory Improvement Amendments of 1988 (CLIA-88) as qualified to perform high complexity clinical laboratory testing. Diane Guzman MD LAB MICROBIOLOGY - GENERAL ORDERABLES Final Result [facility] [address] [place] [address] * (ABNORMAL) POCT glucose meter (05/02/2025 12:08 PM EDT) POCT Glucose 278(H) 74 - 99 mg/dL 05/02/2025 12:10 PM EDT [facility] Comment:Accuracy of a glucos e result [...] for testing. Comment 05/02/2025 12:10 PM EDT [facility] Health Plan Manager ID Sebastián Kenny 12:10 PM EDT [facility] Device ID [id number] 05/02/2025 12:10 PM EDT [facility] Specimen Type POC Capillary 05/02/2025 12:10 PM EDT [facility] Blood Capillary blood specimen / Unknown 05/02/2025 12:08 PM EDT 05/02/2025 12:10 PM EDT Diane Guzman MD LAB POINT OF CARE T EST DOCKED DEVICE UNSOLICITED RESULTS Final Result Performing Organization Address City/[facility]/ZIP Co de Phone Number [facility] [address] [place] [address] * (ABNORMAL) POCT glucose meter (05/02/2025 8:11 [...] Comment 05/02/2025 8:12 AM EDT [facility]ALTH[facility]ARE [facility] Health Plan Manager ID Sebastián Kenny 8:12 AM EDT [facility]ALTH[facility]ARE LAB Device ID [id number] 05/02/2025 8:12 AM EDT [facility] Specimen Type POC Capillary 05/02/2025 8:12 AM EDT [facility] Blood Capillary blood specimen / Unknown 05/02/2025 8:11 AM EDT 05/02/2025 8:12 AM EDT us Diane Guzman MD LAB POINT OF CARE T EST DOCKED DEVICE UNSOLICITED RESULTS Final Result [facility] [address] [place] [address] * (ABNORMAL) POCT glucose meter (05/02/2025 4:01 [...] Comment 05/02/2025 4:03 AM EDT [facility] Health Plan Manager ID Stella Coleman 05/02/20 4:03 AM EDT [facility] Device ID [id number] 05/02/2025 4:03 AM EDT [facility] Specimen Type POC Capillary 05/02/2025 4:03 AM EDT [facility] Blood Capillary blood specimen / Unknown 05/02/2025 4:01 AM EDT 05/02/2025 4:03 AM EDT Marjorie Myers MD LAB POINT OF CARE TE ST DOCKED DEVICE UNSOLICITED RESULTS Final Result Performing Organization Address City/State/[facility] Co de Phone Number [facility] [address] [place] [address] * (ABNORMAL) CBC and Differential (05/02/2025 3:10 AM EDT) WBC Count 7.39 3.70 - 10.30 10*3/uL LAB HEMATOLOGY METHOD 05/02/2025 3:23 AM EDT [facility] RBC Count 3.88(L) 4.60 - 6.10 10*6/uL LAB HEMATOLOGY METHOD 05/02/2025 3:23 AM EDT [facility] HGB 8.8(L) 13.7 - 17.5 g/dL LAB HEMATOLOGY METHOD 05/02/2025 3:23 AM EDT [facility] HCT 29.3(L) 40.0 - 51.0 % LAB HEMATOLOGY METHOD 05/02/2025 3:23 AM EDT [facility] Platelet Count 205 155 - 369 10*3/uL LAB HEMATOLOGY METHOD 05/02/2025 3:23 AM EDT [facility] MCV 76(L) 79 - 98 fL LAB HEMATOLOGY METHOD 05/02/2025 3:23 AM EDT [facility] MCH 22.7(L) 26.0 - 32.0 pg LAB HEMATOLOGY METHOD 05/02/2025 3:23 AM EDT [facility] MCHC 30.0(L) 30.7 - 35.5 g/dL LAB HEMATOLOGY METHOD 05/02/2025 3:23 AM EDT [facility] RDW 19.1(H) 11.5 - 14.5 % LAB HEMATOLOGY METHOD 05/02/2025 3:23 AM EDT [facility] MPV 8.5(L) 8.8 - 12.5 fL LAB HEMATOLOGY METHOD 05/02/2025 3:23 AM EDT [facility] nRBC 0.0 <=0.0 per 100 WBCs LAB HEMATOLOGY METHOD 05/02/2025 3:23 AM EDT [facility] Differential Type Automated LAB HEMATOLOGY METHOD 05/02/2025 3:23 AM EDT [facility] Neutrophils % 74 % LAB HEMATOLOGY METHOD 05/02/2025 3:23 AM EDT [facility] Lymphocytes % 13 % LAB HEMATOLOGY METHOD 05/02/2025 3:23 AM EDT [facility] Monocytes % 8 % LAB HEMATOLOGY METHOD 05/02/2025 3:23 AM EDT [facility] Eosinophils % 4 % LAB HEMATOLOGY METHOD 05/02/2025 3:23 AM EDT [facility] Basophils % 0 % LAB HEMATOLOGY METHOD 05/02/2025 3:23 AM EDT [facility] Immature Granulocytes % 1 % LAB HEMATOLOGY METHOD 05/02/2025 3:23 AM EDT [facility] Neutrophils Absolute 5.45 1.60 - 6.10 10*3/uL LAB HEMATOLOGY METHOD 05/02/2025 3:23 AM EDT [facility] Lymphocytes Absolute 0.96(L) 1.20 - 3.90 10*3/uL LAB HEMATOLOGY METHOD 05/02/2025 3:23 AM EDT [facility] Monocytes Absolute 0.62 0.30 - 0.90 10*3/uL LAB HEMATOLOGY METHOD 05/02/2025 3:23 AM EDT [facility] Eosinophils Absolute 0.30 0.00 - 0.50 10*3/uL LAB HEMATOLOGY METHOD 05/02/2025 3:23 AM EDT [facility] Basophils Absolute 0.01 0.00 - 0.10 10*3/uL LAB HEMATOLOGY METHOD 05/02/2025 3:23 AM EDT [facility] Immature Granulocytes Absolute 0.05 0.00 - 0.06 10*3/uL LAB HEMATOLOGY METHOD 05/02/2025 3:23 AM EDT [facility] Blood Venous blood specimen / Unknown Venipuncture / Unknown 05/02/2025 3:10 AM EDT 05/02/2025 3:14 AM EDT Narrative [facility] - 05/02/2025 3:23 AM EDT Therapeutic decision making should be based on absolute values, rather than percentages. us Marjorie Myers MD LAB BLOOD ORDERABLES Final Resul t [facility] [address] [place] [address] * (ABNORMAL) Basic Metabolic Panel, Plasma (05/02/2025 3:10 AM EDT) Glucose, Plasma 358(H) 74 - 99 mg/dL 05/02/2025 3:45 AM EDT [facility] BUN, Plasma 12 7 - 21 mg/dL 05/02/2025 3:45 AM EDT [facility] Creatinine, Plasma 0.73 0.70 - 1.20 mg/dL 05/02/2025 3:45 AM EDT [facility] BUN/Creatinine Ratio 16 05/02/2025 3:45 AM EDT [facility] Sodium, Plasma 134(L) 136 - 145 mmol/L 05/02/2025 3:45 AM EDT [facility] Potassium, Plasma 3.3(L) 3.6 - 4.9 mmol/L 05/02/2025 3:45 AM EDT [facility] Chloride, Plasma 90(L) 97 - 107 mmol/L 05/02/2025 3:45 AM EDT [facility] CO2, Plasma 37(H) 22 - 29 mmol/L 05/02/2025 3:45 AM EDT [facility] Anion Gap 7 6 - 16 mmol/L 05/02/2025 3:45 AM EDT [facility] Total Calcium, Plasma 8.7(L) 8.9 - 10.2 mg/dL 05/02/2025 3:45 AM EDT [facility] eGFRcr 112.9 mL/min/1.7 3m*2 05/02/2025 3:45 AM EDT [facility] Comment:Reported eGFRcr in m L/min/1.73m2 is based the CKD-EPI 2020 equation that does not use a race coefficient. Blood Venous blood specimen / Unknown Venipuncture / Unknown 05/02/2025 3:10 AM EDT 05/02/2025 3:15 AM EDT us Marjorie Myers MD LAB BLOOD ORDERABLES Final Resul t Performing Organization Address City/[facility] Co de Phone Number [facility] [address] [place] [address] * (ABNORMAL) Magnesium, Plasma (05/02/2025 3:10 AM EDT) Magnesium, Plasma 1.6(L) 1.9 - 2.4 mg/dL 05/02/2025 3:45 AM EDT [facility] Blood Venous blood specimen / Unknown Venipuncture / Unknown 05/02/2025 3:10 AM EDT 05/02/2025 3:15 AM EDT us Marjorie Myers MD LAB BLOOD ORDERABLES Final Resul t Performing Organization Address City/[facility]/ZIP Co de Phone Number [facility] [address] [place] [address] * Phosphorus, Plasma (05/02/2025 3:10 AM EDT) Phosphorus, Plasma 3.0 2.5 - 4.5 mg/dL 05/02/2025 3:45 AM EDT [facility] Blood Venous blood specimen / Unknown Venipuncture / Unknown 05/02/2025 3:10 AM EDT 05/02/2025 3:15 AM EDT us Marjorie Myers MD LAB BLOOD ORDERABLES Final Resul t [facility] [address] [place] [address] * Creatine Kinase (CK), Total (05/02/2025 3:10 AM EDT) [facility] Creatine Kinase, Plasma 50 49 - 320 U/L 05/02/2025 3:45 AM EDT [facility] Blood Venous blood specimen / Unknown Venipuncture / Unknown 05/02/2025 3:10 AM EDT 05/02/2025 3:15 AM EDT us Marjorie Myers MD LAB BLOOD ORDERABLES Final Resul t Performing Organization Address [facility] Co de Phone Number [facility] [address] [place] [address] * (ABNORMAL) POCT glucose meter (05/01/2025 8:26 PM EDT) [facility] POCT Glucose 316(H) 74 - 99 [...] 05/01/2025 8:27 PM EDT [facility] Health Plan Manager ID Stella Coleman 05/01/20 8:27 PM EDT [facility] Device ID [id number] 05/01/2025 8:27 PM EDT [facility] Specimen Type POC Capillary 05/01/2025 8:27 PM EDT [facility] Blood Capillary blood specimen / Unknown 05/01/2025 8:26 PM EDT 05/01/2025 8:27 PM EDT us Marjorie Myers MD LAB POINT OF CARE TE ST DOCKED DEVICE UNSOLICITED RESULTS Final Result Performing Organization Address City/[facility]/ZIP Co de Phone Number [facility] [address] [place] [address] * (ABNORMAL) POCT glucose meter (05/01/2025 5:55 PM EDT) Pathologist [facility] POCT Glucose 294(H) 74 - 99 mg/dL [...] 05/01/2025 5:57 PM EDT [facility] Health Plan Manager ID Sebastián Kenny 5:57 PM EDT [facility] Device ID [id number] 05/01/2025 5:57 PM EDT [facility] Specimen Type POC Capillary 05/01/2025 5:57 PM EDT [facility] Blood Capillary blood specimen / Unknown 05/01/2025 5:55 PM EDT 05/01/2025 5:57 PM EDT Marjorie Myers MD LAB POINT OF CARE TE ST DOCKED DEVICE UNSOLICITED RESULTS Final Result Performing Organization Address City/State/[facility] Co de Phone Number [facility] [address] [place] [address] * (ABNORMAL) POCT glucose meter (05/01/2025 11:51 AM EDT) Pathologist [facility] POCT Glucose 301(H) 74 - 99 mg/dL [...] 05/01/2025 11:53 AM EDT [facility] Health Plan Manager ID Sebastián Kenny 11:53 AM EDT [facility] Device ID [id number] 05/01/2025 11:53 AM EDT [facility] Specimen Type POC Capillary 05/01/2025 11:53 AM EDT [facility] Blood Capillary blood specimen / Unknown 05/01/2025 11:51 AM EDT 05/01/2025 11:53 AM EDT Marjorie Myers MD LAB POINT OF CARE TE ST DOCKED DEVICE UNSOLICITED RESULTS Final Result Performing Organization Address City/[facility]/ZIP Co de Phone Number [facility] [address] [place] [address] * (ABNORMAL) POCT glucose meter (05/01/2025 9:13 [...] Comment 05/01/2025 9:15 AM EDT [facility] Health Plan Manager ID Francisco Javier Martin 05/01/2025 9:15 AM EDT [facility] Device ID [id number] 05/01/2025 9:15 AM EDT [facility] Specimen Type POC Capillary 05/01/2025 9:15 AM EDT [facility] Blood Capillary blood specimen / Unknown 05/01/2025 9:13 AM EDT 05/01/2025 9:15 AM EDT us Marjorie Myers MD LAB POINT OF CARE TE ST DOCKED DEVICE UNSOLICITED RESULTS Final Result Performing Organization Address City/[facility]/ZIP Co de Phone Number [facility] [address] [place] [address] * Surgical Pathology Exam (05/01/2025 8:13 AM EDT) Case Report Surgical Pathology Case: [id number] Authorizing Provider: Mary Vicente MD Collected: 05/01/2025 0813 Ordering Location: [facility] Received: 05/01/2025 0917 Pathologist: Vidya Ly MD Specimens: A) - Toe, Right, R 5th toe B) - Toe, Right, R 5th toe margin 05/09/2025 9:56 AM EDT [facility] Correction History Case amended to provide diagnosis after final decal sections received 05/09/2025 9:56 AM EDT [facility] Comment:These results have b een appended to a previously final verified report. Final Diagnosis A. RIGHT FIFTH TOE, AMPUTATION: - ULCER WITH SUPPURATIVE INFLAMMATION, GANGRENOUS NECROSIS, AND UNDERLYING ACUTE OSTEOMYELITIS. B. RIGHT FIFTH TOE MARGIN, RESECTION: - NO ACUTE OSTEOMYELITIS IDENTIFIED. 05/09/2025 9:56 AM EDT [facility] Amendment electronically signed by Vidya Ly MD on 05/09/2025 at 0956 EDT at 1233 EDT Comment:Corrected result: Pr eviously reported as [Previous value contains rich text formatting which cannot be displayed here] (see Result History) on 05/05/2025 at 1233 EDT. Clinical Information Other chronic osteomyelitis of right foot ([facility]) [M86.671] 05/09/2025 9:56 AM EDT [facility] Gross Description A. R [...] The wound extends into the underlying bone. [employer] sections are submitted as follows: A1-A2: Necrotic lateral skin A3: Bone underlying gaping wound, following decalcification A4: Bone margin, following decalcification BLAS Kwok ([facility]) B. R 5TH TOE MARGIN The specimen is received fresh and placed in formalin, labeled R 5th toe MARGIN , and consists of a 2.8 x 2.8 x 0.6 cm aggregate of hemorrhagic bony fragments. The specimen is entirely submitted in cassette B1, following decalcification. Cold Time: 25m BLAS Kwok ([facility]) 05/09/2025 9:56 AM EDT [facility] Note: 05/09/2025 9:56 AM EDT [facility] Comment:Corrected result: Pr eviously [...] LAB PATHOLOGY ORDERABLES Edited Result - Final [facility] [address] [place] [address] * Type and Screen (05/01/2025 6:49 AM [...] Result Performing Organization Address [facility]/ZIP Co de Phone Number BLOOD BANK [address] [place] [address], * (ABNORMAL) POCT glucose meter (05/01/2025 6:48 AM EDT) [facility] POCT Glucose 222(H) 74 - 99 mg/dL [...] Comment 05/01/2025 6:50 AM EDT [facility] Health Plan Manager ID Emelina Romero 6:50 AM EDT [facility] Device ID [id number] 05/01/2025 6:50 AM EDT [facility] Specimen Type POC Venous 05/01/2025 6:50 AM EDT [facility] Blood Venous blood specimen / Unknown 05/01/2025 6:48 AM EDT 05/01/2025 6:50 AM EDT us Marjorie Myers MD LAB POINT OF CARE TE ST DOCKED DEVICE UNSOLICITED RESULTS Final Result Performing Organization Address City/[facility]/ZIP Co de Phone Number [facility] [address] [place] [address] * Creatine Kinase (CK), Total (05/01/2025 2:14 AM EDT) [facility] Creatine Kinase, Plasma 60 49 - 320 U/L 05/01/2025 2:53 AM EDT [facility] Blood Venous blood specimen / Unknown Venipuncture / Unknown 05/01/2025 2:14 AM EDT 05/01/2025 2:26 AM EDT us Marjorie Myers MD LAB BLOOD ORDERABLES Final Resul t Performing Organization Address City/[facility]/ZIP Co de Phone Number [facility] [address] [place] [address] * (ABNORMAL) CBC and Differential (05/01/2025 2:14 AM EDT) [facility] WBC Count 6.96 3.70 - 10.30 10*3/uL LAB HEMATOLOGY METHOD 05/01/2025 2:37 AM EDT [facility] RBC Count 4.23(L) 4.60 - 6.10 10*6/uL LAB HEMATOLOGY METHOD 05/01/2025 2:37 AM EDT [facility] HGB 9.8(L) 13.7 - 17.5 g/dL LAB HEMATOLOGY METHOD 05/01/2025 2:37 AM EDT [facility] HCT 32.5(L) 40.0 - 51.0 % LAB HEMATOLOGY METHOD 05/01/2025 2:37 AM EDT [facility] Platelet Count 218 155 - 369 10*3/uL LAB HEMATOLOGY METHOD 05/01/2025 2:37 AM EDT [facility] MCV 77(L) 79 - 98 fL LAB HEMATOLOGY METHOD 05/01/2025 2:37 AM EDT [facility] MCH 23.2(L) 26.0 - 32.0 pg LAB HEMATOLOGY METHOD 05/01/2025 2:37 AM EDT [facility] MCHC 30.2(L) 30.7 - 35.5 g/dL LAB HEMATOLOGY METHOD 05/01/2025 2:37 AM EDT [facility] RDW 19.1(H) 11.5 - 14.5 % LAB HEMATOLOGY METHOD 05/01/2025 2:37 AM EDT [facility] MPV 8.4(L) 8.8 - 12.5 fL LAB HEMATOLOGY METHOD 05/01/2025 2:37 AM EDT [facility] nRBC 0.0 <=0.0 per 100 WBCs LAB HEMATOLOGY METHOD 05/01/2025 2:37 AM EDT [facility] Differential Type Automated LAB HEMATOLOGY METHOD 05/01/2025 2:37 AM EDT [facility] Neutrophils % 76 % LAB HEMATOLOGY METHOD 05/01/2025 2:37 AM EDT [facility] Lymphocytes % 11 % LAB HEMATOLOGY METHOD 05/01/2025 2:37 AM EDT [facility] Monocytes % 8 % LAB HEMATOLOGY METHOD 05/01/2025 2:37 AM EDT [facility] Eosinophils % 4 % LAB HEMATOLOGY METHOD 05/01/2025 2:37 AM EDT [facility] Basophils % 0 % LAB HEMATOLOGY METHOD 05/01/2025 2:37 AM EDT [facility] Immature Granulocytes % 1 % LAB HEMATOLOGY METHOD 05/01/2025 2:37 AM EDT [facility] Neutrophils Absolute 5.26 1.60 - 6.10 10*3/uL LAB HEMATOLOGY METHOD 05/01/2025 2:37 AM EDT [facility] Lymphocytes Absolute 0.79(L) 1.20 - 3.90 10*3/uL LAB HEMATOLOGY METHOD 05/01/2025 2:37 AM EDT [facility] Monocytes Absolute 0.57 0.30 - 0.90 10*3/uL LAB HEMATOLOGY METHOD 05/01/2025 2:37 AM EDT [facility] Eosinophils Absolute 0.28 0.00 - 0.50 10*3/uL LAB HEMATOLOGY METHOD 05/01/2025 2:37 AM EDT [facility] Basophils Absolute 0.02 0.00 - 0.10 10*3/uL LAB HEMATOLOGY METHOD 05/01/2025 2:37 AM EDT [facility] Immature Granulocytes Absolute 0.04 0.00 - 0.06 10*3/uL LAB HEMATOLOGY METHOD 05/01/2025 2:37 AM EDT [facility] Blood Venous blood specimen / Unknown Venipuncture / Unknown 05/01/2025 2:14 AM EDT 05/01/2025 2:26 AM EDT Narrative [facility] - 05/01/2025 2:37 AM EDT Therapeutic decision making should be based on absolute values, rather than percentages. us Marjorie Myers MD LAB BLOOD ORDERABLES Final Resul t [facility] [address] [place] [address] * (ABNORMAL) Basic Metabolic Panel, Plasma (05/01/2025 2:14 AM EDT) Glucose, Plasma 266(H) 74 - 99 mg/dL 05/01/2025 2:53 AM EDT [facility] BUN, Plasma 9 7 - 21 mg/dL 05/01/2025 2:53 AM EDT [facility] Creatinine, Plasma 0.71 0.70 - 1.20 mg/dL 05/01/2025 2:53 AM EDT [facility] BUN/Creatinine Ratio 13 05/01/2025 2:53 AM EDT [facility] Sodium, Plasma 137 136 - 145 mmol/L 05/01/2025 2:53 AM EDT [facility] Potassium, Plasma 3.4(L) 3.6 - 4.9 mmol/L 05/01/2025 2:53 AM EDT [facility] Chloride, Plasma 91(L) 97 - 107 mmol/L 05/01/2025 2:53 AM EDT [facility] CO2, Plasma 36(H) 22 - 29 mmol/L 05/01/2025 2:53 AM EDT [facility] Anion Gap 10 6 - 16 mmol/L 05/01/2025 2:53 AM EDT [facility] Total Calcium, Plasma 8.6(L) 8.9 - 10.2 mg/dL 05/01/2025 2:53 AM EDT [facility] eGFRcr 113.9 mL/min/1.7 3m*2 05/01/2025 2:53 AM EDT [facility] Comment:Reported eGFRcr in m L/min/1.73m2 is based the CKD-EPI 2020 equation that does not use a race coefficient. Blood Venous blood specimen / Unknown Venipuncture / Unknown 05/01/2025 2:14 AM EDT 05/01/2025 2:26 AM EDT us Marjorie Myers MD LAB BLOOD ORDERABLES Final Resul t [facility] [address] [place] [address] * (ABNORMAL) Magnesium, Plasma (05/01/2025 2:14 AM EDT) Magnesium, Plasma 1.8(L) 1.9 - 2.4 mg/dL 05/01/2025 2:53 AM EDT [facility] Blood Venous blood specimen / Unknown Venipuncture / Unknown 05/01/2025 2:14 AM EDT 05/01/2025 2:26 AM EDT us Marjorie Myers MD LAB BLOOD ORDERABLES Final Resul t [facility] [address] [place] [address] * Phosphorus, Plasma (05/01/2025 2:14 AM EDT) Pathologist [facility] Phosphorus, Plasma 3.0 2.5 - 4.5 mg/dL 05/01/2025 2:53 AM EDT [facility] Blood Venous blood specimen / Unknown Venipuncture / Unknown 05/01/2025 2:14 AM EDT 05/01/2025 2:26 AM EDT us Marjorie Myers MD LAB BLOOD ORDERABLES Final Resul t Performing Organization Address [facility] Co de Phone Number [facility] [address] [place] [address] * (ABNORMAL) POCT glucose meter (04/30/2025 8:21 PM EDT) [facility] POCT Glucose 226(H) 74 - [...] 04/30/2025 8:23 PM EDT [facility] Health Plan Manager ID Sandra Perez 04/30/20 8:23 PM EDT [facility] Device ID [id number] 04/30/2025 8:23 PM EDT [facility] Specimen Type POC Capillary 04/30/2025 8:23 PM EDT [facility] Blood Capillary blood specimen / Unknown 04/30/2025 8:21 PM EDT 04/30/2025 8:23 PM EDT us Marjorie Myers MD LAB POINT OF CARE TE ST DOCKED DEVICE UNSOLICITED RESULTS Final Result [facility] [address] [place] [address] * (ABNORMAL) POCT glucose meter (04/30/2025 4:19 PM EDT) [facility] POCT Glucose 173(H) 74 - [...] Comment 04/30/2025 4:54 PM EDT [facility]ALTH[facility]ARE [facility] Health Plan Manager ID Priyanka Negrete 04/30/20 4:54 PM EDT HEALTH[facility]ARE LAB Device ID [id number] 04/30/2025 4:54 PM EDT [facility] Specimen Type POC Capillary 04/30/2025 4:54 PM EDT [facility] Blood Capillary blood specimen / Unknown 04/30/2025 4:19 PM EDT 04/30/2025 4:54 PM EDT Marjorie Myers MD LAB POINT OF CARE TE ST DOCKED DEVICE UNSOLICITED RESULTS Final Result [facility] [address] [place] [address] * (ABNORMAL) POCT glucose meter (04/30/2025 12:11 PM EDT) [facility] POCT Glucose 226(H) 74 - [...] 04/30/2025 12:50 PM EDT [facility] Health Plan Manager ID Priyanka Negrete 04/30/20 12:50 PM EDT [facility]ALTH[facility]ARE LAB Device ID [id number] 04/30/2025 12:50 PM EDT [facility] Specimen Type POC Capillary 04/30/2025 12:50 PM EDT [facility] Blood Capillary blood specimen / Unknown 04/30/2025 12:11 PM EDT 04/30/2025 12:50 PM EDT Marjorie Myers MD LAB POINT OF CARE TE ST DOCKED DEVICE UNSOLICITED RESULTS Final Result Performing Organization Address City/[facility] Co de Phone Number [facility] [address] [place] [address] * (ABNORMAL) POCT glucose meter (04/30/2025 8:18 AM EDT) [facility] POCT Glucose 212(H) 74 - [...] Comment 04/30/2025 8:55 AM EDT [facility]ALTH[facility]ARE [facility] Health Plan Manager ID Priyanka Negrete 04/30/20 8:55 AM EDT [facility]ALTH[facility] Device ID [id number] 04/30/2025 8:55 AM EDT [facility] Specimen Type POC Capillary 04/30/2025 8:55 AM EDT [facility] Blood Capillary blood specimen / Unknown 04/30/2025 8:18 AM EDT 04/30/2025 8:55 AM EDT us Marjorie Myers MD LAB POINT OF CARE TE ST DOCKED DEVICE UNSOLICITED RESULTS Final Result Performing Organization Address City/[facility]/ZIP Co de Phone Number [facility] [address] [place] [address] * (ABNORMAL) CBC and Differential (04/30/2025 3:19 AM EDT) [facility] WBC Count 8.84 3.70 - 10.30 10*3/uL LAB HEMATOLOGY METHOD 04/30/2025 3:35 AM EDT [facility] RBC Count 4.31(L) 4.60 - 6.10 10*6/uL LAB HEMATOLOGY METHOD 04/30/2025 3:35 AM EDT [facility] HGB 9.6(L) 13.7 - 17.5 g/dL LAB HEMATOLOGY METHOD 04/30/2025 3:35 AM EDT [facility] HCT 32.6(L) 40.0 - 51.0 % LAB HEMATOLOGY METHOD 04/30/2025 3:35 AM EDT [facility] Platelet Count 245 155 - 369 10*3/uL LAB HEMATOLOGY METHOD 04/30/2025 3:35 AM EDT [facility] MCV 76(L) 79 - 98 fL LAB HEMATOLOGY METHOD 04/30/2025 3:35 AM EDT [facility] MCH 22.3(L) 26.0 - 32.0 pg LAB HEMATOLOGY METHOD 04/30/2025 3:35 AM EDT [facility] MCHC 29.4(L) 30.7 - 35.5 g/dL LAB HEMATOLOGY METHOD 04/30/2025 3:35 AM EDT [facility] RDW 19.1(H) 11.5 - 14.5 % LAB HEMATOLOGY METHOD 04/30/2025 3:35 AM EDT [facility] MPV 8.5(L) 8.8 - 12.5 fL LAB HEMATOLOGY METHOD 04/30/2025 3:35 AM EDT [facility] nRBC 0.0 <=0.0 per 100 WBCs LAB HEMATOLOGY METHOD 04/30/2025 3:35 AM EDT [facility] Differential Type Automated LAB HEMATOLOGY METHOD 04/30/2025 3:35 AM EDT [facility] Neutrophils % 78 % LAB HEMATOLOGY METHOD 04/30/2025 3:35 AM EDT [facility] Lymphocytes % 11 % LAB HEMATOLOGY METHOD 04/30/2025 3:35 AM EDT [facility] Monocytes % 7 % LAB HEMATOLOGY METHOD 04/30/2025 3:35 AM EDT [facility] Eosinophils % 3 % LAB HEMATOLOGY METHOD 04/30/2025 3:35 AM EDT [facility] Basophils % 0 % LAB HEMATOLOGY METHOD 04/30/2025 3:35 AM EDT [facility] Immature Granulocytes % 1 % LAB HEMATOLOGY METHOD 04/30/2025 3:35 AM EDT [facility] Neutrophils Absolute 6.90(H) 1.60 - 6.10 10*3/uL LAB HEMATOLOGY METHOD 04/30/2025 3:35 AM EDT [facility] Lymphocytes Absolute 0.95(L) 1.20 - 3.90 10*3/uL LAB HEMATOLOGY METHOD 04/30/2025 3:35 AM EDT [facility] Monocytes Absolute 0.64 0.30 - 0.90 10*3/uL LAB HEMATOLOGY METHOD 04/30/2025 3:35 AM EDT [facility] Eosinophils Absolute 0.29 0.00 - 0.50 10*3/uL LAB HEMATOLOGY METHOD 04/30/2025 3:35 AM EDT [facility] Basophils Absolute 0.02 0.00 - 0.10 10*3/uL LAB HEMATOLOGY METHOD 04/30/2025 3:35 AM EDT [facility] Immature Granulocytes Absolute 0.04 0.00 - 0.06 10*3/uL LAB HEMATOLOGY METHOD 04/30/2025 3:35 AM EDT [facility] Blood Venous blood specimen / Unknown Venipuncture / Unknown 04/30/2025 3:19 AM EDT 04/30/2025 3:26 AM EDT Narrative [facility] - 04/30/2025 3:35 AM EDT Therapeutic decision making should be based on absolute values, rather than percentages. us Marjorie Myers MD LAB BLOOD ORDERABLES Final Resul t [facility] [address] [place] [address] * (ABNORMAL) Basic Metabolic Panel, Plasma (04/30/2025 3:19 AM EDT) [facility] Glucose, Plasma 254(H) 74 - 99 mg/dL 04/30/2025 3:56 AM EDT [facility] BUN, Plasma 11 7 - 21 mg/dL 04/30/2025 3:56 AM EDT [facility] Creatinine, Plasma 0.77 0.70 - 1.20 mg/dL 04/30/2025 3:56 AM EDT [facility] BUN/Creatinine Ratio 14 04/30/2025 3:56 AM EDT [facility] Sodium, Plasma 137 136 - 145 mmol/L 04/30/2025 3:56 AM EDT [facility] Potassium, Plasma 3.3(L) 3.6 - 4.9 mmol/L 04/30/2025 3:56 AM EDT [facility] Chloride, Plasma 91(L) 97 - 107 mmol/L 04/30/2025 3:56 AM EDT [facility] CO2, Plasma 36(H) 22 - 29 mmol/L 04/30/2025 3:56 AM EDT [facility] Anion Gap 10 6 - 16 mmol/L 04/30/2025 3:56 AM EDT [facility] Total Calcium, Plasma 8.7(L) 8.9 - 10.2 mg/dL 04/30/2025 3:56 AM EDT [facility] eGFRcr 111.1 mL/min/1.7 3m*2 04/30/2025 3:56 AM EDT [facility] Comment:Reported eGFRcr in m L/min/1.73m2 is based the CKD-EPI 2020 equation that does not use a race coefficient. Blood Venous blood specimen / Unknown Venipuncture / Unknown 04/30/2025 3:19 AM EDT 04/30/2025 3:26 AM EDT us Marjorie Myers MD LAB BLOOD ORDERABLES Final Resul t [facility] [address] [place] [address] * (ABNORMAL) Magnesium, Plasma (04/30/2025 3:19 AM EDT) Magnesium, Plasma 1.5(L) 1.9 - 2.4 mg/dL 04/30/2025 3:56 AM EDT [facility] Blood Venous blood specimen / Unknown Venipuncture / Unknown 04/30/2025 3:19 AM EDT 04/30/2025 3:26 AM EDT us Marjorie Myers MD LAB BLOOD ORDERABLES Final Resul t Performing Organization Address City/[facility]/ZIP Co de Phone Number [facility] [address] [place] [address] * Phosphorus, Plasma (04/30/2025 3:19 AM EDT) Pathologist [facility] Phosphorus, Plasma 2.7 2.5 - 4.5 mg/dL 04/30/2025 3:56 AM EDT [facility] Blood Venous blood specimen / Unknown Venipuncture / Unknown 04/30/2025 3:19 AM EDT 04/30/2025 3:26 AM EDT us Marjorie Myers MD LAB BLOOD ORDERABLES Final Resul t Performing Organization Address City/[facility] Co la Phone Number [facility] [address] [place] [address] * (ABNORMAL) POCT glucose meter (04/29/2025 7:38 PM EDT) [facility] POCT Glucose 191(H) 74 - [...] 04/29/2025 9:20 PM EDT [facility] Health Plan Manager ID Ervin Du V 025 9:20 PM EDT [facility] Device ID [id number] 04/29/2025 9:20 PM EDT [facility] Specimen Type POC Capillary 04/29/2025 9:20 PM EDT [facility] Blood Capillary blood specimen / Unknown 04/29/2025 7:38 PM EDT 04/29/2025 9:20 PM EDT Marjorie Myers MD LAB POINT OF CARE TE ST DOCKED DEVICE UNSOLICITED RESULTS Final Result Performing Organization Address City/[facility] Co de Phone Number [facility] [address] [place] [address] * (ABNORMAL) POCT glucose meter (04/29/2025 5:21 [...] Comment 04/29/2025 5:23 PM EDT [facility] Health Plan Manager ID Rocio Dozier 04/29/20 5:23 PM EDT HEALTH[facility]ARE LAB Device ID [id number] 04/29/2025 5:23 PM EDT [facility] Specimen Type POC Capillary 04/29/2025 5:23 PM EDT [facility] Blood Capillary blood specimen / Unknown 04/29/2025 5:21 PM EDT 04/29/2025 5:23 PM EDT Marjorie Myers MD LAB POINT OF CARE TE ST DOCKED DEVICE UNSOLICITED RESULTS Final Result Performing Organization Address City/[facility] Co de Phone Number [facility] [address] [place] [address] * (ABNORMAL) POCT glucose meter (04/29/2025 11:15 [...] Comment 04/29/2025 11:17 AM EDT [facility]ARE [facility] Health Plan Manager ID Rocio Dozier 04/29/20 11:17 AM EDT [facility]ARE LAB Device ID [id number] 04/29/2025 11:17 AM EDT [facility]ARE [facility] Specimen Type POC Capillary 04/29/2025 11:17 AM EDT [facility] Blood Capillary blood specimen / Unknown 04/29/2025 11:15 AM EDT 04/29/2025 11:17 AM EDT Marjorie Myers MD LAB POINT OF CARE TE ST DOCKED DEVICE UNSOLICITED RESULTS Final Result Performing Organization Address City/[facility] Co de Phone Number [facility]ARE [facility] [address] [place] [address] * (ABNORMAL) POCT glucose meter (04/29/2025 7:13 AM EDT) [facility] Signature POCT Glucose 269(H) 74 - 99 mg/dL [...] Comment 04/29/2025 7:14 AM EDT [facility]ARE [facility] Health Plan Manager ID Rocio Dozier 04/29/20 7:14 AM EDT HEALTH[facility]ARE LAB Device ID [id number] 04/29/2025 7:14 AM EDT [facility] Specimen Type POC Capillary 04/29/2025 7:14 AM EDT [facility] Blood Capillary blood specimen / Unknown 04/29/2025 7:13 AM EDT 04/29/2025 7:14 AM EDT us Marjorie Myers MD LAB POINT OF CARE TE ST DOCKED DEVICE UNSOLICITED RESULTS Final Result Performing Organization Address City/[facility]/ZIP Co de Phone Number [facility] [address] [place] [address] * Folate (04/29/2025 3:04 AM EDT) Folate, Serum 10.5 >4.6 ng/mL 04/29/2025 4:05 AM EDT [facility] Blood Venous blood specimen / Unknown Venipuncture / Unknown 04/29/2025 3:04 AM EDT 04/29/2025 3:20 AM EDT us Sy De La Fuente APRN, DNP LAB BLOOD ORDERABLES Fin al Result [facility] [address] [place] [address] * Vitamin B12 (04/29/2025 3:04 AM EDT) Pathologist [facility] Vitamin B12, Serum 338 210 - 1,033 pg/mL 04/29/2025 4:06 AM EDT [facility] Blood Venous blood specimen / Unknown Venipuncture / Unknown 04/29/2025 3:04 AM EDT 04/29/2025 3:20 AM EDT us Sy De La Fuente APRN, DNP LAB BLOOD ORDERABLES Fin al Result Performing Organization Address City/[facility]/ZIP Co de Phone Number [facility] [address] [place] [address] * (ABNORMAL) Iron & Total Iron Binding Capacity, Plasma (Includes Transferrin) (04/29/2025 3:04 AM EDT) Iron, Plasma 36(L) 50 - 170 ug/dL 04/29/2025 3:55 AM EDT [facility] Transferrin, Plasma 197(L) 200 - 360 mg/dL 04/29/2025 3:55 AM EDT [facility] Total Iron Binding Capacity, Plasma 246 240 - 450 ug/mL 04/29/2025 3:55 AM EDT [facility] Transferrin Saturation 15 14 - 50 % 04/29/2025 3:55 AM EDT [facility] Blood Venous blood specimen / Unknown Venipuncture / Unknown 04/29/2025 3:04 AM EDT 04/29/2025 3:19 AM EDT us Sy De La Fuente APRN, DNP LAB BLOOD ORDERABLES Fin al Result Performing Organization Address [facility] de Phone Number [facility] [address] [place] [address] * Ferritin (04/29/2025 3:04 AM EDT) Ferritin, Serum 40 20 - 400 ng/mL 04/29/2025 4:06 AM EDT [facility] Blood Venous blood specimen / Unknown Venipuncture / Unknown 04/29/2025 3:04 AM EDT 04/29/2025 3:20 AM EDT us Sy De La Fuente APRN, DENISE LAB BLOOD ORDERABLES Fin al Result Performing Organization Address [facility] Phone Number [facility] [address] [place] [address] * Cortisol (04/29/2025 3:04 AM EDT) Cortisol 2.80 Before 10am: 3.7 - 19.4. After 5pm: 2.9 - 17.3 ug/dL 04/29/2025 4:22 AM EDT [facility] Comment:Testing performed on [employer], standardized against CUSTODIAL Reference Standard concentration values assigned by LC-MS/MS and verified by BCR 192 and BCR 193 certified reference materials. Blood Venous blood specimen / Unknown Venipuncture / Unknown 04/29/2025 3:04 AM EDT 04/29/2025 3:19 AM EDT us Sy De La Fuente APRN, [facility] LAB REF LAB BLOOD AND FL UID ORD Final Result Performing Organization Address [facility] Co de Phone Number [facility] [address] [place] [address] * TSH (04/29/2025 3:04 AM EDT) Thyroid Stimulating Hormone, Plasma 1.58 0.40 - 4.20 uIU/mL 04/29/2025 3:55 AM EDT [facility] Blood Venous blood specimen / Unknown Venipuncture / Unknown 04/29/2025 3:04 AM EDT 04/29/2025 3:19 AM EDT us Sy De La Fuente SUPERVISOR ASBESTOS REMOVAL, DNP LAB BLOOD ORDERABLES Fin al Result Performing Organization Address [facility]/ZIP Co de Phone Number [facility] [address] [place] [address] * (ABNORMAL) Hemoglobin A1c (04/29/2025 3:04 AM EDT) Hemoglobin A1c 8.9(H) <5.7 % 04/29/2025 9:40 AM EDT [facility] Blood Venous blood specimen / Unknown Venipuncture / Unknown 04/29/2025 3:04 AM EDT 04/29/2025 3:19 AM EDT Narrative [facility] - 04/29/2025 9:40 AM EDT HA1C Interpretive Data: Diagnosis of Diabetes: Diabetic > or = 6.5% Pre-diabetic 5.7 to 6.4% Non-diabetic < or = 5.6% Glycemic Targets for Type I and Type II Diabetics: Non- Adults <7.0% Adults <6.0% Children and Adolescents <7.5% Source: [place] [employer]. Standards of medical care in diabetes,2017. Diabetes Care.2017:40 (suppl 1):S1-S135. luis Maurice Leisa DIANA, DNP LAB BLOOD ORDERABLES Fin al Result Performing Organization Address City/[facility]/ZIP Co de Phone Number [facility] [address] [place] [address] * Phosphorus (04/29/2025 3:04 AM EDT) Phosphorus, Plasma 3.6 2.5 - 4.5 mg/dL 04/29/2025 3:55 AM EDT [facility] Blood Venous blood specimen / Unknown Venipuncture / Unknown 04/29/2025 3:04 AM EDT 04/29/2025 3:19 AM EDT us Sy Maurice Moravian SUPERVISOR ASBESTOS REMOVAL, DNP LAB BLOOD ORDERABLES Fin al Result Performing Organization Address City/[facility]/ZIP Co de Phone Number [facility] [address] [place] [address] * (ABNORMAL) Magnesium, Plasma (04/29/2025 3:04 AM EDT) Magnesium, Plasma 1.7(L) 1.9 - 2.4 mg/dL 04/29/2025 3:55 AM EDT [facility] Blood Venous blood specimen / Unknown Venipuncture / Unknown 04/29/2025 3:04 AM EDT 04/29/2025 3:19 AM EDT us Sy Maurice Leisa SEALSN, DNP LAB BLOOD ORDERABLES Fin al Result Performing Organization Address [facility] de Phone Number [facility] [address] [place] [address] * (ABNORMAL) Comprehensive metabolic panel (04/29/2025 3:04 AM EDT) Glucose, Plasma 219(H) 74 - 99 mg/dL 04/29/2025 3:55 AM EDT [facility] BUN, Plasma 9 7 - 21 mg/dL 04/29/2025 3:55 AM EDT [facility] Creatinine, Plasma 0.94 0.70 - 1.20 mg/dL 04/29/2025 3:55 AM EDT [facility] BUN/Creatinine Ratio 04/29/2025 3:55 AM EDT [facility] Sodium, Plasma 137 136 - 145 mmol/L 04/29/2025 3:55 AM EDT [facility] Potassium, Plasma 3.1(L) 3.6 - 4.9 mmol/L 04/29/2025 3:55 AM EDT [facility] Chloride, Plasma 92(L) 97 - 107 mmol/L 04/29/2025 3:55 AM EDT [facility] CO2, Plasma 38(H) 22 - 29 mmol/L 04/29/2025 3:55 AM EDT [facility] Anion Gap 7 6 - 16 mmol/L 04/29/2025 3:55 AM EDT [facility] Total Calcium, Plasma 8.6(L) 8.9 - 10.2 mg/dL 04/29/2025 3:55 AM EDT [facility] Total Protein 7.4 6.3 - 7.9 g/dL 04/29/2025 3:55 AM EDT [facility] Albumin, Plasma 3.3(L) 3.5 - 5.2 g/dL 04/29/2025 3:55 AM EDT [facility] AST, Plasma 18 10 - 50 U/L 04/29/2025 3:55 AM EDT [facility] ALT, Plasma 11 10 - 50 U/L 04/29/2025 3:55 AM EDT [facility] Alkaline Phosphatase, Plasma 55 40 - 115 U/L 04/29/2025 3:55 AM EDT [facility] Total Bilirubin, Plasma 0.8 0.2 - 1.1 mg/dL 04/29/2025 3:55 AM EDT [facility] eGFRcr 100.6 mL/min/1.7 3m*2 04/29/2025 3:55 AM EDT [facility] Comment:Reported eGFRcr in m L/min/1.73m2 is based the CKD-EPI 2020 equation that does not use a race coefficient. Blood Venous blood specimen / Unknown Venipuncture / Unknown 04/29/2025 3:04 AM EDT 04/29/2025 3:19 AM EDT us Sy De La Fuente SUPERVISOR ASBESTOS REMOVAL, DNP LAB BLOOD ORDERABLES Fin al Result [facility] [address] [place] [address] * (ABNORMAL) CBC and Differential (04/29/2025 3:04 AM EDT) WBC Count 6.68 3.70 - 10.30 10*3/uL LAB HEMATOLOGY METHOD 04/29/2025 3:16 AM EDT [facility] RBC Count 4.21(L) 4.60 - 6.10 10*6/uL LAB HEMATOLOGY METHOD 04/29/2025 3:16 AM EDT [facility] HGB 9.4(L) 13.7 - 17.5 g/dL LAB HEMATOLOGY METHOD 04/29/2025 3:16 AM EDT [facility] HCT 32.0(L) 40.0 - 51.0 % LAB HEMATOLOGY METHOD 04/29/2025 3:16 AM EDT [facility] Platelet Count 249 155 - 369 10*3/uL LAB HEMATOLOGY METHOD 04/29/2025 3:16 AM EDT [facility] MCV 76(L) 79 - 98 fL LAB HEMATOLOGY METHOD 04/29/2025 3:16 AM EDT [facility] MCH 22.3(L) 26.0 - 32.0 pg LAB HEMATOLOGY METHOD 04/29/2025 3:16 AM EDT [facility] MCHC 29.4(L) 30.7 - 35.5 g/dL LAB HEMATOLOGY METHOD 04/29/2025 3:16 AM EDT [facility] RDW 19.6(H) 11.5 - 14.5 % LAB HEMATOLOGY METHOD 04/29/2025 3:16 AM EDT [facility] MPV 8.4(L) 8.8 - 12.5 fL LAB HEMATOLOGY METHOD 04/29/2025 3:16 AM EDT [facility] nRBC 0.0 <=0.0 per 100 WBCs LAB HEMATOLOGY METHOD 04/29/2025 3:16 AM EDT [facility] Differential Type Automated LAB HEMATOLOGY METHOD 04/29/2025 3:16 AM EDT [facility] Neutrophils % 75 % LAB HEMATOLOGY METHOD 04/29/2025 3:16 AM EDT [facility] Lymphocytes % 11 % LAB HEMATOLOGY METHOD 04/29/2025 3:16 AM EDT [facility] Monocytes % 9 % LAB HEMATOLOGY METHOD 04/29/2025 3:16 AM EDT [facility] Eosinophils % 4 % LAB HEMATOLOGY METHOD 04/29/2025 3:16 AM EDT [facility] Basophils % 0 % LAB HEMATOLOGY METHOD 04/29/2025 3:16 AM EDT [facility] Immature Granulocytes % 1 % LAB HEMATOLOGY METHOD 04/29/2025 3:16 AM EDT [facility] Neutrophils Absolute 5.01 1.60 - 6.10 10*3/uL LAB HEMATOLOGY METHOD 04/29/2025 3:16 AM EDT [facility] Lymphocytes Absolute 0.75(L) 1.20 - 3.90 10*3/uL LAB HEMATOLOGY METHOD 04/29/2025 3:16 AM EDT [facility] Monocytes Absolute 0.59 0.30 - 0.90 10*3/uL LAB HEMATOLOGY METHOD 04/29/2025 3:16 AM EDT [facility] Eosinophils Absolute 0.26 0.00 - 0.50 10*3/uL LAB HEMATOLOGY METHOD 04/29/2025 3:16 AM EDT [facility] Basophils Absolute 0.03 0.00 - 0.10 10*3/uL LAB HEMATOLOGY METHOD 04/29/2025 3:16 AM EDT [facility] Immature Granulocytes Absolute 0.04 0.00 - 0.06 10*3/uL LAB HEMATOLOGY METHOD 04/29/2025 3:16 AM EDT [facility] Blood Venous blood specimen / Unknown Venipuncture / Unknown 04/29/2025 3:04 AM EDT 04/29/2025 3:13 AM EDT Narrative [facility] - 04/29/2025 3:16 AM EDT Therapeutic decision making should be based on absolute values, rather than percentages. us Sy De La Fuente SUPERVISOR ASBESTOS REMOVAL, DNP LAB BLOOD ORDERABLES Fin al Result [facility] [address] [place] [address] * (ABNORMAL) POCT glucose meter (04/28/2025 9:06 PM EDT) Pathologist [facility] POCT Glucose 212(H) 74 - 99 mg/dL [...] 04/28/2025 9:08 PM EDT [facility] Health Plan Manager ID Frankie Poole 04/28/2025 9:08 PM EDT [facility]ALTH[facility]ARE LAB Device ID [id number] 04/28/2025 9:08 PM EDT [facility] Specimen Type POC Capillary 04/28/2025 9:08 PM EDT [facility] Blood Capillary blood specimen / Unknown 04/28/2025 9:06 PM EDT 04/28/2025 9:08 PM EDT us Marjorie Myers MD LAB POINT OF CARE TE ST DOCKED DEVICE UNSOLICITED RESULTS Final Result Performing Organization Address City/[facility]/ZIP Co de Phone Number [facility] [address] [place] [address] * (ABNORMAL) POCT glucose meter (04/28/2025 5:34 [...] Comment 04/28/2025 5:38 PM EDT [facility] Health Plan Manager ID Ailyn Finch 5:38 PM EDT [facility] Device ID [id number] 04/28/2025 5:38 PM EDT [facility] Specimen Type POC Capillary 04/28/2025 5:38 PM EDT [facility] Blood Capillary blood specimen / Unknown 04/28/2025 5:34 PM EDT 04/28/2025 5:38 PM EDT us Marjorie Myers MD LAB POINT OF CARE TE ST DOCKED DEVICE UNSOLICITED RESULTS Final Result Performing Organization Address City/[facility]/ZIP Co de Phone Number [facility] [address] [place] [address] * (ABNORMAL) POCT glucose meter (04/28/2025 3:51 [...] Comment 04/28/2025 3:54 PM EDT [facility] Health Plan Manager ID Ailyn Finch 3:54 PM EDT [facility] Device ID [id number] 04/28/2025 3:54 PM EDT [facility] Specimen Type POC Capillary 04/28/2025 3:54 PM EDT [facility] Blood Capillary blood specimen / Unknown 04/28/2025 3:51 PM EDT 04/28/2025 3:54 PM EDT Marjorie Myers MD LAB POINT OF CARE TE ST DOCKED DEVICE UNSOLICITED RESULTS Final Result Performing Organization Address City/State/[facility] Co de Phone Number [facility] [address] [place] [address] * VAS Ankle Brachial Index - GABBI [...] are demonstrated at the levels of the PHYSICAL PLANT EMPLOYEE and DPA. Segmental pressures are within normal limits with a PHYSICAL PLANT EMPLOYEE GABBI of 1.1 (172 mmHg) and a DPA GABBI of 1.0 (149 mmHg). Digit pressures are of 122 mmHg. Left: Multiphasic waveforms are demonstrated at the levels of the PHYSICAL PLANT EMPLOYEE and DPA. Segmental pressures are within normal limits with a PH[employer]ICAL PLANT EMPLOYEE GABBI of 1.1 (164 mmHg) and a DPA GABBI of 1.0 (153 mmHg). Digit pressures are of 151 mmHg. Procedure Note Chris Schaefer MD - 04/28/2025 CLINICAL INDICATION: Diabetic foot ulcer TECHNIQUE: Non-invasive, continuous wave Doppler exam with segmental pressures andspectral analysis of the lower extremity was performed. COMPARISON: None. FINDINGS: Right: Multiphasic waveforms are demonstrated at the levels of the PHYSICAL PLANT EMPLOYEE andDPA. Segmental pressures are within normal limits with a PHYSICAL PLANT EMPLOYEE GABBI of 1.1(172 mmHg) and a DPA GABBI of 1.0 (149 mmHg). Digit pressures are of 122mmHg. Left: Multiphasic waveforms are demonstrated at the levels of the PHYSICAL PLANT EMPLOYEE andDPA. Segmental pressures are within normal limits with a PHYSICAL PLANT EMPLOYEE GABBI of 1.1(164 mmHg) and a DPA [...] Drug Resistance Test (04/28/2025 1:44 PM EDT) [facility] Culture No Multi Drug Resistant Organisms Isolated 04/29/2025 2:32 PM EDT [facility] Swab (Nares and Saba Rectal) Non-blood Collection / Unknown 04/28/2025 1:44 PM EDT 04/28/2025 2:15 PM EDT Narrative [facility] - 04/29/2025 2:32 PM EDT This test was developed and its performance characteristics determined by the [facility]. Although the media is FDA-approved, it is not FDA-approved for all specimen types submitted. The FDA has determined that such clearance or approval is not necessary. This test is used for surveillance purposes. It should not be regarded as investigational or for research. The [facility] is certified under the Clinical Laboratory Improvement Amendments of 1988 (CLIA-88) as qualified to perform high complexity clinical laboratory testing. Sy De La Fuente APRN, DNP LAB MICROBIOLOGY - GENER AL ORDERABLES Final Result [facility] [address] [place] [address] * (ABNORMAL) POCT glucose meter (04/28/2025 12:52 PM EDT) [facility] POCT Glucose 271(H) 74 - [...] Comment 04/28/2025 12:56 PM EDT [facility]ALTH[facility]ARE LAB Health Plan Manager ID Ailyn Finch 12:56 PM EDT [facility] Device ID [id number] 04/28/2025 12:56 PM EDT [facility] Specimen Type POC Capillary 04/28/2025 12:56 PM EDT [facility] Blood Capillary blood specimen / Unknown 04/28/2025 12:52 PM EDT 04/28/2025 12:56 PM EDT Marjorie Myers MD LAB POINT OF CARE TE ST DOCKED DEVICE UNSOLICITED RESULTS Final Result Performing Organization Address City/[facility]/ZIP Co de Phone Number [facility] [address] [place] [address] * (ABNORMAL) POCT glucose meter (04/28/2025 11:39 AM EDT) Pathologist [facility] POCT Glucose 271(H) 74 - 99 mg/dL [...] Comment 04/28/2025 11:44 AM EDT [facility] Health Plan Manager ID Ailyn Finch 11:44 AM EDT [facility] LAB Device ID [id number] 04/28/2025 11:44 AM EDT [facility] Specimen Type POC Capillary 04/28/2025 11:44 AM EDT [facility] Blood Capillary blood specimen / Unknown 04/28/2025 11:39 AM EDT 04/28/2025 11:44 AM EDT Marjorie Myers MD LAB POINT OF CARE TE ST DOCKED DEVICE UNSOLICITED RESULTS Final Result Performing Organization Address City/[facility]/ZIP Co de Phone Number [facility] [address] [place] [address] * Lavender Top (04/28/2025 8:13 AM EDT) Pathologist [facility] Extra Hold for add-ons 04/28/2025 11:01 AM EDT [facility] Comment:Auto resulted. Blood Venous blood specimen / Unknown 04/28/2025 8:13 AM EDT 04/28/2025 8:19 AM EDT us Marjorie Myers MD LAB BLOOD ORDERABLES Final Resul t Performing Organization Address [facility]/ZIP Co de Phone Number [facility] [address] [place] [address] * Light Green Top (04/28/2025 8:13 AM EDT) Extra Hold for add-ons 04/28/2025 11:01 AM EDT [facility] Comment:Auto resulted. Blood Venous blood specimen / Unknown 04/28/2025 8:13 AM EDT 04/28/2025 8:19 AM EDT us Marjorie Myers MD LAB BLOOD ORDERABLES Final Resul t Performing Organization Address [facility] Co de Phone Number [facility] [address] [place] [address] * APTT (04/28/2025 8:13 AM EDT) aPTT 32 25 - 35 sec 04/28/2025 8:33 AM EDT [facility] Blood Venous blood specimen / Unknown Venipuncture / Unknown 04/28/2025 8:13 AM EDT 04/28/2025 8:18 AM EDT Sy De La Fuente SUPERVISOR ASBESTOS REMOVAL, DNP LAB BLOOD ORDERABLES Fin al Result Performing Organization Address [facility] Co de Phone Number [facility] [address] [place] [address] * (ABNORMAL) PT/INR (04/28/2025 8:13 AM EDT) Prothrombin Time 17.5(H) 12.0 - 14.3 sec 04/28/2025 8:33 AM EDT [facility] INR 1.4(H) 0.9 - 1.1 04/28/2025 8:33 AM EDT [facility] Blood Venous blood specimen / Unknown Venipuncture / Unknown 04/28/2025 8:13 AM EDT 04/28/2025 8:18 AM EDT Narrative [facility] - 04/28/2025 8:33 AM EDT OPTIMAL INR RANGES FOR PATIENT ON ORAL ANTICOAGULANT THERAPY Prevention of venous thromboembolism INR 2.0 to 3.0 In patients with heart disease: Atrial fibrillation INR 2.0 to 3.0 Valvular heart disease INR 2.0 to 3.0 Tissue heart valves INR 2.0 to 3.0 Mechanical prosthetic valves INR 2.5 to 3.5 Prevention of recurrent ME INR 2.5 to 3.5 us Sy De La Fuente APRN, DENISE LAB BLOOD ORDERABLES Fin al Result [facility] [address] [place] [address] * ECG Adult (04/28/2025 7:20 AM EDT) EKG DIAGNOSIS CLASS Abnormal MUSE ECG Ventricular Rate 90 BPM MUSE ECG Atrial Rate 90 BPM MUSE ECG [place] Interval 206 ms MUSE ECG QRSD Interval 146 ms MUSE ECG QT Interval 450 ms MUSE ECG QTC Interval 550 ms MUSE ECG P [place] 69 degrees MUSE ECG R [place] -32 degrees MUSE ECG T Wave [place] 35 degrees MUSE ECG Diagnosis Baseline Artifact [...] 04/28/2025 7:21 AM EDT [facility] Health Plan Manager ID Ailyn Finch 7:21 AM EDT [facility] Device ID [id number] 04/28/2025 7:21 AM EDT [facility] Specimen Type POC Capillary 04/28/2025 7:21 AM EDT [facility] Blood Capillary blood specimen / Unknown 04/28/2025 7:17 AM EDT 04/28/2025 7:21 AM EDT Greg Lee MD LAB POINT OF CARE TE ST DOCKED DEVICE UNSOLICITED RESULTS Final Result [facility] [address] [place] [address] * CT Foot Right w IV Contrast [...] signing this report, I, the attending physician, [email or web address] I have personally reviewed the images/data for [...] TEST ORDERABLES Final Result BLOOD BANK [address] [place] [address], * Blood Culture (Aerobic/Anaerobet Set) (04/27/2025 10:16 PM EDT) Culture No growth at day 5 05/03/2025 12:01 AM EDT [facility] Blood Venous blood specimen / Unknown Venipuncture / Unknown 04/27/2025 10:16 PM EDT 04/27/2025 10:53 PM EDT us Jessa Law MD LAB MICROBIOLOGY - GENERAL ORDE RABLES Final Result [facility] [address] [place] [address] * Blood Culture (Aerobic/Anaerobet Set) (04/27/2025 10:16 PM EDT) Culture No growth at day 5 05/03/2025 12:01 AM EDT [facility] Blood Venous blood specimen / Unknown Venipuncture / Unknown 04/27/2025 10:16 PM EDT 04/27/2025 10:53 PM EDT us Jessa Law MD LAB MICROBIOLOGY - GENERAL SANYA DOMINGUEZ Final Result Performing Organization Address City/[facility]/ZIP Co de Phone Number [facility] [address] [place] [address] * (ABNORMAL) Blood gas, venous (04/27/2025 10:16 PM EDT) pH, Venous 7.47(H) 7.32 - 7.43 LAB HEMATOLOGY METHOD 04/27/2025 10:21 PM EDT [facility] pCO2, Venous 50 40 - 55 mmHg LAB HEMATOLOGY METHOD 04/27/2025 10:21 PM EDT [facility] pO2, Venous 30 25 - 40 mmHg LAB HEMATOLOGY METHOD 04/27/2025 10:21 PM EDT [facility] SO2, Measured, Venous 52(L) 65 - 80 % LAB HEMATOLOGY METHOD 04/27/2025 10:21 PM EDT [facility] Base Excess, Venous 11.6(H) -2.0 - 3.0 mmol/L LAB HEMATOLOGY METHOD 04/27/2025 10:21 PM EDT [facility] Bicarbonate, Calculated, Venous 37(H) 22 - 26 mmol/L LAB HEMATOLOGY METHOD 04/27/2025 10:21 PM EDT [facility] Hematocrit, Whole Blood 30.1(L) 40.0 - 51.0 % LAB HEMATOLOGY METHOD 04/27/2025 10:21 PM EDT [facility] Sodium, Whole Blood 136 136 - 145 mmol/L LAB HEMATOLOGY METHOD 04/27/2025 10:21 PM EDT [facility] Potassium, Whole Blood 2.8(L) 3.6 - 4.9 mmol/L LAB HEMATOLOGY METHOD 04/27/2025 10:21 PM EDT [facility] Chloride, Whole Blood 88(L) 97 - 107 mmol/L LAB HEMATOLOGY METHOD 04/27/2025 10:21 PM EDT [facility] Glucose, Whole Blood 131(H) 74 - 99 mg/dL LAB HEMATOLOGY METHOD 04/27/2025 10:21 PM EDT [facility] Lactate, Venous, Whole Blood 2.0 0.5 - 2.2 mmol/L LAB HEMATOLOGY METHOD 04/27/2025 10:21 PM EDT [facility] Ionized Calcium, Whole Blood 4.2(L) 4.6 - 5.1 mg/dL LAB HEMATOLOGY METHOD 04/27/2025 10:21 PM EDT [facility] Blood Venous blood specimen / Unknown Venipuncture / Unknown 04/27/2025 10:16 PM EDT 04/27/2025 10:20 PM EDT us Jessa Law MD LAB BLOOD ORDERABLES Final Resu lt [facility] [address] [place] [address] * Creatine Kinase, Total, Plasma (04/27/2025 9:37 PM EDT) Creatine Kinase, Plasma 71 49 - 320 U/L 04/28/2025 8:36 AM EDT [facility] Blood Venous blood specimen / Unknown Venipuncture / Unknown 04/27/2025 9:37 PM EDT 04/27/2025 9:40 PM EDT us Sy De La Fuente SUPERVISOR [employer], DNP LAB BLOOD ORDERABLES Fin al Result [facility] [address] [place] [address] * (ABNORMAL) Procalcitonin (04/27/2025 9:37 PM EDT) Procalcitonin, Plasma 0.11(H) <0.09 ng/mL 04/28/2025 8:36 AM EDT [facility] Blood Venous blood specimen / Unknown Venipuncture / Unknown 04/27/2025 9:37 PM EDT 04/27/2025 9:40 PM EDT Narrative [facility] - 04/28/2025 8:36 AM [...] predict 28 day mortality risk. Please consult [email or web address] for more information. Test performed at [facility]. us Sy De La Fuente APRN, DNP LAB BLOOD ORDERABLES Fin al Result Performing Organization Address City/[facility]/ZIP Co de Phone Number [facility] [address] [place] [address] * (ABNORMAL) Sed rate, automated (04/27/2025 9:37 PM EDT) Sedimentation Rate >111(H) <15 mm/hr 2024 11:10 PM EDT [facility] Blood Venous blood specimen / Unknown Venipuncture / Unknown 04/27/2025 9:37 PM EDT 04/27/2025 9:40 PM EDT us Jessa Law MD LAB BLOOD ORDERABLES Final Resu lt [facility] [address] [place] [address] * (ABNORMAL) Magnesium (04/27/2025 9:37 PM EDT) Magnesium, Plasma 1.2(L) 1.9 - 2.4 mg/dL 04/27/2025 10:11 PM EDT [facility] Blood Venous blood specimen / Unknown Venipuncture / Unknown 04/27/2025 9:37 PM EDT 04/27/2025 9:40 PM EDT us Jessa Law MD LAB BLOOD ORDERABLES Final Resu lt Performing Organization Address [facility]/ZIP Co de Phone Number [facility] [address] [place] [address] * Beta-Hydroxybutyric Acid (04/27/2025 9:37 PM EDT) Beta-Hydroxybut yric Acid, Plasma 0.23 <=0.27 mmol/L 04/27/2025 10:56 PM EDT [facility] Blood Venous blood specimen / Unknown Venipuncture / Unknown 04/27/2025 9:37 PM EDT 04/27/2025 9:40 PM EDT us Jessa Law MD LAB BLOOD ORDERABLES Final Resu lt Performing Organization Address [facility] Co de Phone Number [facility] [address] [place] [address] * ED HIV 1/2 Antibody/Antigen Screen w/Reflex to HIV 1/2 Differentiation (04/27/2025 9:37 PM EDT) HIV 1 & 2 Antibody/Antigen Screen Non Reactive Non Reactive 04/27/2025 10:41 PM EDT [facility] Comment:Screening for HIV 1 & 2 antibodies, and P24 antigen is NONREACTIVE. No confirmatory testing is required. Blood Venous blood specimen / Unknown Venipuncture / Unknown 04/27/2025 9:37 PM EDT 04/27/2025 10:00 PM EDT us Madhu Ritchie MD LAB BLOOD ORDERABLES Final Res ult Performing Organization Address City/[facility]/ZIP Co de Phone Number [facility] [address] [place] [address] * Hepatitis C Antibody - ED (04/27/2025 9:37 PM EDT) Pathologist [facility] Hepatitis C Antibody Negative Negative 04/27/2025 10:41 PM EDT [facility] Blood Venous blood specimen / Unknown Venipuncture / Unknown 04/27/2025 9:37 PM EDT 04/27/2025 10:00 PM EDT Madhu Ritchie MD LAB BLOOD ORDERABLES Final Res ult Performing Organization Address [facility]/ZIP Co de Phone Number [facility] [address] [place] [address] * (ABNORMAL) C-reactive protein (04/27/2025 9:37 PM EDT) [facility] CRP, Plasma 82.6(H) <=8.0 mg/L 04/27/2025 10:03 PM EDT [facility] Blood Venous blood specimen / Unknown Venipuncture / Unknown 04/27/2025 9:37 PM EDT 04/27/2025 9:40 PM EDT Narrative [facility] - 04/27/2025 10:03 PM EDT This CRP test is appropriate for assessment of infection, systemic inflammation and/or tissue injury. To assess cardiovascular disease risk order high sensitivity CRP (CRPH). Madhu Ritchie MD LAB BLOOD ORDERABLES Final Res ult Performing Organization Address [facility] Co de Phone Number [facility] [address] [place] [address] * (ABNORMAL) CBC w/diff (04/27/2025 9:37 PM EDT) [facility] WBC Count 12.00(H) 3.70 - 10.30 10*3/uL LAB HEMATOLOGY METHOD 04/27/2025 9:43 PM EDT [facility] RBC Count 4.48(L) 4.60 - 6.10 10*6/uL LAB HEMATOLOGY METHOD 04/27/2025 9:43 PM EDT [facility] HGB 10.4(L) 13.7 - 17.5 g/dL LAB HEMATOLOGY METHOD 04/27/2025 9:43 PM EDT [facility] HCT 33.3(L) 40.0 - 51.0 % LAB HEMATOLOGY METHOD 04/27/2025 9:43 PM EDT [facility] Platelet Count 282 155 - 369 10*3/uL LAB HEMATOLOGY METHOD 04/27/2025 9:43 PM EDT [facility] MCV 74(L) 79 - 98 fL LAB HEMATOLOGY METHOD 04/27/2025 9:43 PM EDT [facility] MCH 23.2(L) 26.0 - 32.0 pg LAB HEMATOLOGY METHOD 04/27/2025 9:43 PM EDT [facility] MCHC 31.2 30.7 - 35.5 g/dL LAB HEMATOLOGY METHOD 04/27/2025 9:43 PM EDT [facility] RDW 19.4(H) 11.5 - 14.5 % LAB HEMATOLOGY METHOD 04/27/2025 9:43 PM EDT [facility] MPV 8.3(L) 8.8 - 12.5 fL LAB HEMATOLOGY METHOD 04/27/2025 9:43 PM EDT [facility] nRBC 0.0 <=0.0 per 100 WBCs LAB HEMATOLOGY METHOD 04/27/2025 9:43 PM EDT [facility] Differential Type Automated LAB HEMATOLOGY METHOD 04/27/2025 9:43 PM EDT [facility] Neutrophils % 82 % LAB HEMATOLOGY METHOD 04/27/2025 9:43 PM EDT [facility] Lymphocytes % 9 % LAB HEMATOLOGY METHOD 04/27/2025 9:43 PM EDT [facility] Monocytes % 7 % LAB HEMATOLOGY METHOD 04/27/2025 9:43 PM EDT [facility] Eosinophils % 2 % LAB HEMATOLOGY METHOD 04/27/2025 9:43 PM EDT [facility] Basophils % 0 % LAB HEMATOLOGY METHOD 04/27/2025 9:43 PM EDT [facility] Immature Granulocytes % 0 % LAB HEMATOLOGY METHOD 04/27/2025 9:43 PM EDT [facility] Neutrophils Absolute 9.73(H) 1.60 - 6.10 10*3/uL LAB HEMATOLOGY METHOD 04/27/2025 9:43 PM EDT [facility] Lymphocytes Absolute 1.11(L) 1.20 - 3.90 10*3/uL LAB HEMATOLOGY METHOD 04/27/2025 9:43 PM EDT [facility] Monocytes Absolute 0.80 0.30 - 0.90 10*3/uL LAB HEMATOLOGY METHOD 04/27/2025 9:43 PM EDT [facility] Eosinophils Absolute 0.29 0.00 - 0.50 10*3/uL LAB HEMATOLOGY METHOD 04/27/2025 9:43 PM EDT [facility] Basophils Absolute 0.03 0.00 - 0.10 10*3/uL LAB HEMATOLOGY METHOD 04/27/2025 9:43 PM EDT [facility] Immature Granulocytes Absolute 0.04 0.00 - 0.06 10*3/uL LAB HEMATOLOGY METHOD 04/27/2025 9:43 PM EDT [facility] Blood Venous blood specimen / Unknown Venipuncture / Unknown 04/27/2025 9:37 PM EDT 04/27/2025 9:40 PM EDT Narrative [facility] - 04/27/2025 9:43 PM EDT Therapeutic decision making should be based on absolute values, rather than percentages. us Madhu Ritchie MD LAB BLOOD ORDERABLES Final Res ult [facility] [address] [place] [address] * (ABNORMAL) BMP (04/27/2025 9:37 PM EDT) Glucose, Plasma 135(H) 74 - 99 mg/dL 04/27/2025 10:03 PM EDT [facility] BUN, Plasma 8 7 - 21 mg/dL 04/27/2025 10:03 PM EDT [facility] Creatinine, Plasma 0.84 0.70 - 1.20 mg/dL 04/27/2025 10:03 PM EDT [facility] BUN/Creatinine Ratio 10 04/27/2025 10:03 PM EDT [facility] Sodium, Plasma 135(L) 136 - 145 mmol/L 04/27/2025 10:03 PM EDT [facility] Potassium, Plasma 3.3(L) 3.6 - 4.9 mmol/L 04/27/2025 10:03 PM EDT [facility] Chloride, Plasma 90(L) 97 - 107 mmol/L 04/27/2025 10:03 PM EDT [facility] CO2, Plasma 29 22 - 29 mmol/L 04/27/2025 10:03 PM EDT [facility] Anion Gap 16 6 - 16 mmol/L 04/27/2025 10:03 PM EDT [facility] Total Calcium, Plasma 9.0 8.9 - 10.2 mg/dL 04/27/2025 10:03 PM EDT [facility] eGFRcr 108.2 mL/min/1.7 3m*2 04/27/2025 10:03 PM EDT [facility] Comment:Reported eGFRcr in m L/min/1.73m2 is based the CKD-EPI 2020 equation that does not use a race coefficient. Blood Venous blood specimen / Unknown Venipuncture / Unknown 04/27/2025 9:37 PM EDT 04/27/2025 9:40 PM EDT us Madhu Ritchie MD LAB BLOOD ORDERABLES Final Res ult [facility] [address] [place] [address] documented in this encounter Visit Diagnoses Diagnosis Other chronic osteomyelitis of right foot (CMS/[facility]) Diabetic foot [...] unspecified Other chronic osteomyelitis of right foot ([facility]/HCC) documented in this encounter Admitting Diagnoses [...] Thu05/18/25 at 1348, Routine, shortness of breath atorvastatin [...] 5 mg, Oral, Daily, First dose on [facility] 05/06/25 at 1245, Until Discontinued, Routine Given [...] 5:00 PM EST 20 mg sodium chloride ([place]) 0.65 % nasal spray 1 spray 1 [...] Deepthi Herman RN)1216 (Given - Provider: Deepthi Herman, LOLA)1729 (Given [...] Herman, LOLA) 1733 (Given - Provider: Deepthi Herman, LOLA) insulin [...] 1733 (Given - Provider: Deepthi Herman, LOLA) 173 (Given - Provider: Deepthi Herman, LOLA) insulin [...] Herman RN) 908 (Given - Provider: Kylee Gonzalez RN - Comment: [facility]) insulin regular (HumuLIN R U-500) 500 [...] RN)2000 (Given - Provider: Ivan Slaughter RN) 904 (Given - Provider: Deepthi Herman RN)2003 (Given - Provider: Ivna Slaughter RN) 1107 (Not Given - Provider: [...] - Provider: Kylee Gonzalez RN - Comment: [facility]) perflutren lipid microspheres (Definity) injection [...] 0856 (Given - Provider: Deepthi Herman, LOLA) 0900 (Not Given - Provider: Deepthi Herman [...] Herman RN) 0900 (Given - Provider: Deepthi Herman, LOLA) 0906 (Given - Provider: Kylee Gonzalez RN) [...] > 100.4 0856 (Given - Provider: Deepthi Herman, RN)1626 (Given - Provider: Deepthi Herman, RN) 0900 (Given - Provider: Deepthi Herman, RN) albuterol 108 (90 Base) MCG/ACT inhaler [...] anxiety 0855 (Canceled Entry - Provider: Deepthi Herman, LOLA) magnesium citrate oral solution 296 mL 296 [...] pain 0855 (Given - Provider: Deepthi Herman, LOLA)1626 (Given - Provider: Deepthi Herman, LOLA)2224 (Given - Provider: Ivan Slaughter, LOLA) 0902 (Given - Provider: Deepthi Herman, LOLA)1424 (Given - Provider: Deepthi Herman, LOLA)2228 (Given - Provider: Ivan Slaughter RN) 0907 (Given - Provider: Kylee Gonzalez, LOLA) sodium chloride ([place]) 0.65 % nasal spray 1 spray 1 [...] documented as of this encounter Care Teams Medical Record Specialist Relationship Specialty Start Date End Date Malcolm Hayward APRN [address] [place] [address] PCP - General 09/21/23 documented as of this encounter
[2025-05-31] VITALS (8 sets, daily range): BP systolic 115–134; BP diastolic 58–74; PULSE 65–75; RESP 12–22; TEMP 36.8; O2SAT 94–98; BMI 73.9
--- NOTE | 2025-05-31 16:38 | ECG_ITS ---
APPROVED REPORT Exam: Resting ECG HR:73 bpm ECG Measurements Heart Rate 73 AXES OR 167 P -7 QRSd 165 QRS -26 QT 469 T 58 QTc 495 Conclusion SINUS RHYTHM BORDERLINE LEFT AXIS DEVIATION [QRS AXIS < -20] RIGHT BUNDLE BRANCH BLOCK [120+ ms QRS DURATION, UPRIGHT V1, 40+ ms S IN I/aVL/V4/V5/V6] ABNORMAL ECG UNCONFIRMED REPORT Electronically signed by : Sebastián Negrete, 05/31/2025 21:56:19
--- OUTSIDE RECORDS SUMMARY | 2025-05-31 16:46 | XMS_ITS ---
Care Plan - [facility] Created on: May 31, 2025 Gonzalo Russell : 1975 Sex: Male Author Organization [facility] Address [address] [place] [address] Phone Care Team Providers Care Heeler Machine Name Role Phone Allen RUSH, Emanuel Maurice Unavailable [phone] TRELL BECKWITH MD Unavailable [phone] ZI SUE DPM Unavailable [phone] Petty Frost PA-C Primary Care Provider [phone]
--- OUTSIDE RECORDS SUMMARY | 2025-05-31 16:46 | XMS_ITS | Clinical Summary ---
Author Organization [facility] Address [address] [place] [address] Phone Care Team Providers Care Land Acquisition Manager Name Role Phone Allen RUSH, Emanuel Maurice Unavailable [phone] TRELL BECKWITH MD Unavailable [phone] PAWCARL DPMZI Unavailable [phone] Petty Frost PA-C Primary Care Provider [phone] [...] margarito Last Documented On 9 11:03AM ; [facility] Past Visits Onset Date Resolved Date Provider Condition Status Bone Pain in the Heel 06/27/2014 Randy Booth DPM Active Last Documented On 4 1:06PM ; [facility] Plan of Treatment - Weight loss diet - Last Documented On 11/09/2019 12:13PM ; [facility] Patient was seen by myself Chintan [...] Documented On 11/09/2019 12:13PM ; [facility] Instructions to patient Instructions for patient See PCP for BP and Weight Last Documented On 9 4:12PM ; [facility] Lose weight Last Documented On 9 11:03AM ; [facility] Assessments Includes: Assessments from this encounter Findings Low back pain lumbar DDD - Last Documented On 11/09/2019 12:13PM ; [facility] Instructions Includes: Instructions from this encounter Instructions to patient Instructions for patient See PCP for BP and Weight Last Documented On 9 4:12PM ; [facility] Lose weight Last Documented On 9 11:03AM ; [facility] Medical Equipment - Implanted Devices Includes: Current Devices No Medical Equipment Recorded Medications Includes: Medications discussed during this encounter and other current Medications Discontinued / Stopped on this date on 06/27/2014 Lexapro 10 MG OR TABS Provider: Diagnosis: Last Documented On 9 4:08PM By Daniel Mo ; [facility] Lisinopril 10 MG OR TABS Provider: Diagnosis: Last Documented On 9 4:08PM By Daniel Mo ; [facility], [facility] metFORMIN HCl 500 MG TABS Provider: Diagnosis: Last Documented On 9 4:08PM By Daniel Mo ; [facility] Dexilant 30 MG OR CPDR Provider: Diagnosis: Last Documented On 9 4:08PM By Daniel Mo ; [facility], [facility] Current Medications (continue as prescribed) Xarelto 20 MG Oral Tablet 11/16/2021 Provider: Diagnosis: Last Documented On 2 3:17PM By Estrellita Vázquez ; [facility] Metoclopramide HCl 10 MG Oral Tablet 04/21/2019 Prov ider: Chintan Aguayo MD Diagnosis: Last Documented On 9 4:08PM By Daniel Mo ; [facility], [facility] Atorvastatin Calcium 40 MG Oral Tablet 04/21/2019 Pr ovider: Diagnosis: Last Documented On 9 4:08PM By Daniel Mo ; [facility] Furosemide 40 MG Oral Tablet 04/21/2019 Provider: Diagnosis: Last Documented On 9 4:09PM By Daniel Mo ; [facility] Potassium Chloride 20 MEQ Oral Packet 04/21/2019 Pro vider: Diagnosis: Last Documented On 9 4:09PM By Daniel Mo ; [facility] Omeprazole 40 MG Oral Capsul e Delayed Release 04/21/2019 Provider: Chintan Aguayo MD Diagnosis: Last Documented On 9 4:10PM By Daniel Mo ; [facility] ARIPiprazole 5 MG Oral Tablet 04/14/2019 Provider: Diagnosis: Last Documented On 9 4:10PM By Daniel Mo ; [facility] Venlafaxine HCl ER 150 MG Or al Capsule Extended Release 24 Hour 03/31/2019 Provider: Diagnosis: Last Documented On 9 4:10PM By Daniel Mo ; [facility] metFORMIN HCl 1000 MG Oral Tablet 03/10/2019 Provide r: Chintan Aguayo MD Diagnosis: Last Documented On 9 4:10PM By Daniel Mo ; [facility] Lisinopril-hydroCHLOROthiazi de 20-25 MG Oral Tablet 03/04/2019 Provider: TRELL BECKWITH MD Diagnosis: Last Documented On 9 4:10PM By Daniel Mo ; [facility] Past Medications on file Diclofenac Potassium 50 MG O R TABS 06/27/2014 - 07/27/2014 Provider: Randy DUMONT Diagnosis: be Last Documented On 4 1:34PM By Isa Avendano ; [facility] Medications Administered Includes: Administered Medications [...] has had injections with pain management in [facility] as well as here in [place] he says the one in [place] did not do much for him but he has some sort of injection here in [place] which did help. he is not complaining of any numbness or tingling about her bladder problems Social History Description Last Updated Tobacco use 06/27/2014 Last Documented On 9 11:03AM ; [facility] Smoking status : Current everyday smoker 06/27/2014 Last Documented On 9 11:03AM ; [facility] Alcohol use 06/27/2014 Last Documented On 9 11:03AM ; [facility] Current smoker 06/27/2014 Last Documented On 9 11:03AM ; [facility] No caffeine use 06/27/2014 Last Documented On 9 11:03AM ; [facility] No recent change in diet 06/27/2014 Last Documented On 9 11:03AM ; [facility] Not exercising regularly 06/27/2014 Last Documented On 9 11:03AM ; [facility] Not using drugs 06/27/2014 Last Documented On 9 11:03AM ; [facility] Procedures and Surgical History Includes: Procedures from this encounter Procedures Code Diagnosis Performing Provider Service Location Service Date pharmacologic therapy for cessation of tobacco use 4001F Last Documented On 9 11:03AM ; [facility], [facility] Clinical summary provided to patient Last Documented On 9 4:12PM ; [facility] Medical History Includes: Medical History addressed during this encounter Description Last Updated Intermittent hypertension 04/22/2019 Last Documented On 0 12:13PM ; [facility] History of depression 04/22/2019 Last Documented On 0 12:13PM ; [facility] gall bladder, wisdom teeth 06/27/2014 Last Documented On 9 11:03AM ; [facility] Arthritic joint problems 06/27/2014 Last Documented On 9 11:03AM ; [facility] History of diabetes mellitus 06/27/2014 Last Documented On 9 11:03AM ; [facility] History of gastric ulcer 06/27/2014 Last Documented On 9 11:03AM ; [facility] Family History Includes: Family History addressed during this encounter Description Last Updated Family history of hypertension 9 Last Documented On 0 12:13PM ; [facility] non-contributory 06/27/2014 Last Documented On 9 11:03AM ; [facility] Review of Systems Includes: Review of [...] Time Diagnosis Physician Specified Emanuel Villa MD [facility] 04/22/20 10:58AM 12:17PM Insurance Includes: Active Insurance Policies Plan Name Member ID Group # Subscriber Relationship Effect margarito Dates 1 - [facility] [id number] Gonzalo Russell Self 03/13/2022 - Unknown Clinical Notes Includes: Clinical Notes from this encounter No Clinical Notes Recorded
--- OUTSIDE RECORDS SUMMARY | 2025-05-31 16:46 | XMS_ITS | Clinical Summary ---
Author Organization [employer] ([place], [place], [place], [place], [place]) Address [address] [place] [address] Care Team Providers Care District Wire Chief Name Role Phone Malcolm Hayward APRN Primary Care Provider [phone] Allergies No known active allergies Medications atorvastatin [...] 04/26/2020, 12/24/2016 Insurance MEDICARE PART A B /[facility] Care Teams District Wire Chief Relationship Specialty Start Date End Date Malcolm Hayward APRN [address] [phone] PCP - General Nurse Practitioner 12/20/24
--- OUTSIDE RECORDS SUMMARY | 2025-05-31 16:46 | XMS_ITS | Referral Summary ---
Author Organization [employer] ([place], [place], [place], [place], [place]) Address [address] [place] [address] Care Team Providers Care Signal Operator Technical Name Role Phone Malcolm Hayward APRN Primary Care Provider [phone] Allergies No known active allergies Medications atorvastatin [...] A B BLUE CROSS/BLUE SHIELD Care Teams Signal Operator Technical Relationship Specialty Start Date End Date Malcolm Hayward, ADALGISA [address] [place] [address] PCP - General Nurse Practitioner 12/20/24
--- OUTSIDE RECORDS SUMMARY | 2025-05-31 16:47 | XMS_ITS | Encounter Summary ---
Author Organization [facility] Address [address] [id number] Care Team Providers Care Mold Forms Builder Name Role Phone Malcolm Hayward APRN Primary Care Provider [phone] Encounter Details Date Type Department Care Team [...] any time in the past 12 m [facility], were you homeless or living in a [facility] (including now)? No 04/28/2025 [facility] Utilities Answer Date Recorded In the past [...] Description 06/12/2025 2:00 PM EST Office Visit [facility] [address] [place] [address] Elaine Campbell PA [address] [facility] [address] [place] [address] 06/22/2025 1:40 PM EST Office Visit [facility] [address] [facility] 5th Floor [address] [place] [address] Mary Vicente MD [address] [facility] [address] [place] [id number] 06/23/2025 8:00 AM EST Office Visit [facility] [address] [facility] 5th Floor [address] [place] [address] Sheila Marcano, PA [address] [facility] [address] [place] [address] documented as of this encounter [...] as of this encounter Care Teams Mold Forms Builder Relationship Specialty Start Date End Date Malcolm Hayward APRN [address] [place] [phone] PCP - General 09/21/23 documented as of this encounter
--- OUTSIDE RECORDS SUMMARY | 2025-05-31 16:47 | XMS_ITS | Encounter Summary ---
Author Organization [facility] Address [address] [id number] Care Team Providers Care Health And Nutrition Specialist Name Role Phone Malcolm Hayward SLIP OPERATOR Primary Care Provider [phone] Reason for Visit * Reason Comments Med Refill Encounter Details Date Type Department Care Team (Late st Contact Info) Description 12/31/2023 Refill [facility] [address] [place] [address] Earlien Loaiza, SLIP OPERATOR [address] [facility] [address] [place] [address] Type 2 diabetes mellitus (CMS/HCC) [...] Description 06/12/2025 2:00 PM EST Office Visit [facility] [address] [facility] [place] [address] Elaine Campbell PA [address] [facility] [address] [place] [address] 06/22/2025 1:40 PM EST Office Visit [facility] [address] [place] [address] Mary Vicente MD [address] [place] [address] 06/23/2025 8:00 AM EST Office Visit [facility] [address] [place] [address] Sheila Marcano PA [address] [place] [address] documented as of this encounter [...] documented as of this encounter Care Teams Health And Nutrition Specialist Relationship Specialty Start Date End Date Malcolm Hayward APRN [address] [place], [place] [phone] PCP - General 09/21/23 documented as of this encounter
--- OUTSIDE RECORDS SUMMARY | 2025-05-31 16:48 | XMS_ITS ---
Author Organization [facility] Address [address] [place] [address] Phone Care Team Providers Care Printer Machine Name Role Phone Allen RUSH, Emanuel Maurice Unavailable [phone] TRELL BECKWITH MD Unavailable [phone] PAWT DPYehuda, ZI Unavailable [phone] Petty Frost PA-C Primary Care Provider [phone] Problems Includes: Active, inactive, and resolved Problems All Visits Onset Date Resolved Date Provider Condition S tatus Lower Back Pain 04/22/2019 Emanuel Villa MD Act margarito Last Documented On 9 11:03AM ; [facility] Bone Pain in the Heel 06/27/2014 Randy Booth DPM Active Last Documented On 4 1:06PM ; [facility] Plan of Treatment Findings Encounter Date Ordered weight loss diet Physician Specified [facility] Emanuel Villa MD 04/22/2019 Last Documented On 0 12:13PM ; [facility] Ordered weight loss diet NEW PATIENT with Randy Booth DPM 06/27/2014 Last Documented On 4 1:30PM ; [facility] Instructions to patient Instructions for patient See PCP for BP and Weight Last Documented On 2 2:52PM ; [facility] Intervention and counseling on cessation of tobacco use Last Documented On 2 3:18PM ; [facility] Lose weight Last Documented On 2 [...] On 9 4:09PM By Daniel [facility] Potassium Chloride 20 MEQ Oral Packet 04/21/2019 Pro vider: Diagnosis: Last Documented On 9 4:09PM By Daniel Mo ; [facility], [facility] Omeprazole 40 MG Oral Capsul e Delayed Release 04/21/2019 Provider: Chintan Aguayo MD Diagnosis: Last Documented On 9 4:10PM By Daniel Mo ; [facility], [facility] ARIPiprazole 5 MG Oral Tablet 04/14/2019 Provider: Diagnosis: Last Documented On 9 4:10PM By Daniel Mo ; [facility], [facility] Venlafaxine HCl ER 150 MG Or al Capsule Extended Release 24 Hour 03/31/2019 Provider: Diagnosis: Last Documented On 9 4:10PM By Daniel Mo ; [facility] metFORMIN HCl 1000 MG Oral Tablet 03/10/2019 Provide r: Chintan Aguayo MD Diagnosis: Last Documented On 9 4:10PM By Daniel Mo ; [facility], [facility] Lisinopril-hydroCHLOROthiazi de 20-25 MG Oral Tablet 03/04/2019 Provider: TRELL BECKWITH MD Diagnosis: Last Documented On 9 4:10PM By Daniel Mo ; [facility] Past Medications on file Lexapro 10 MG OR TABS 06/27/2014 - 04/22/2019 Provider : Diagnosis: Last Documented On 9 4:08PM By Daniel Mo ; [facility] Lisinopril 10 MG OR TABS 06/27/2014 - 04/22/2019 Provi vincent: Diagnosis: Last Documented On 9 4:08PM By Daniel Mo ; [facility] metFORMIN HCl 500 MG TABS 06/27/2014 - 04/22/2019 Prov ider: Diagnosis: Last Documented On 9 4:08PM By Daniel Mo ; [facility] Dexilant 30 MG OR CPDR 06/27/2014 - 04/22/2019 Provide r: Diagnosis: Last Documented On 9 4:08PM By Daniel Mo ; [facility] Diclofenac Potassium 50 MG O R TABS 06/27/2014 - 07/27/2014 Provider: Randy DUMONT Diagnosis: be Last Documented On 4 1:34PM By Isa Avendano ; [facility], [facility] Medications Administered Includes: Administered Medications in patient's chart No Administered Medications Recorded Results Includes: Results from 05/31/2024 through 05/31/2025 No Results Recorded For Specified Dates History of Present Illness History of Present Illness not supported for this document type No History of Present Illness Recorded Social History Description Last Updated Smoker 12/12/2021 Last Documented On 3 1:37PM ; [facility] Unemployed 12/12/2021 Last Documented On 3 1:37PM ; [facility] Tobacco use 06/27/2014 Last Documented On 4 1:30PM ; [facility] Smoking status : Current everyday smoker 06/27/2014 Last Documented On 4 1:30PM ; [facility] Alcohol use 06/27/2014 Last Documented On 4 1:30PM ; [facility] Current smoker 06/27/2014 Last Documented On 4 1:30PM ; [facility] No caffeine use 06/27/2014 Last Documented On 4 1:30PM ; [facility] No recent change in diet 06/27/2014 Last Documented On 4 1:30PM ; [facility] Not exercising regularly 06/27/2014 Last Documented On 4 1:30PM ; [facility] Not using drugs 06/27/2014 Last Documented On 4 1:30PM ; [facility] Medical History Includes: Medical History in patient's chart Description Last Updated No recent immunization for flu 2 Last Documented On 3 1:37PM ; [facility] No recent immunization for pneumococcal pneumonia 12/12/2021 Last Documented On 3 1:37PM ; [facility] Intermittent hypertension 04/22/2019 Last Documented On 0 [...] 9 Last Documented On 0 12:13PM ; [facility] non-contributory 06/27/2014 Last Documented On 4 1:30PM ; [facility] Review of Systems Review [...] Subscriber Relationship Effect margarito Dates 1 - [facility] [id number] Gonzalo Russell Self 03/13/2022 - Unknown Clinical Notes Includes: Signed Clinical Notes starting from 06/26/2022 No Clinical Notes Recorded
--- OUTSIDE RECORDS SUMMARY | 2025-05-31 16:48 | XMS_ITS | Clinical Summary ---
Author Organization [facility] Address [address] [place] [address] Phone Care Team Providers Care Base Engineer Name Role Phone Allen RUSH, Emanuel Maurice Unavailable [phone] TRELL BECKWITH MD Unavailable [phone] PAWCARL DPZI Blackman Unavailable [phone] Petty Frost PA-C Primary Care Provider +1 [...] Documented On 9 11:03AM ; [facility] Past Visits Onset Date Resolved Date Provider Condition Status Bone Pain in the Heel 06/27/2014 Randy Booth DPM Active Last Documented On 4 1:06PM ; [facility] Plan of Treatment patient was seen by myself and Dr. Allen Foote PA-C. Patient will follow up 4 weeks after he tries interspinous process injection at L3-L4 no surgery would be needed for him - Last Documented On 11/02/2022 1:37PM ; [facility] Instructions to patient Instructions for patient See PCP for BP and Weight Last Documented On 2 2:52PM ; [facility], [facility] Intervention and counseling on cessation of tobacco use Last Documented On 2 3:18PM ; [facility], [facility] Lose weight Last Documented On 2 2:52PM ; [facility], [facility] Assessments Includes: Assessments from this encounter Findings L3-L4 spinous process edema - Last Documented On 11/02/2022 1:37PM ; [facility], [facility] Instructions Includes: Instructions from this encounter Instructions to patient Instructions for patient See PCP for BP and Weight Last Documented On 2 2:52PM ; [facility], [facility] Intervention and counseling on cessation of tobacco use Last Documented On 2 3:18PM ; [facility], [facility] Lose weight Last Documented On 2 2:52PM ; [facility], [facility] Medical Equipment - Implanted Devices Includes: Current Devices No Medical Equipment Recorded Medications Includes: Medications discussed during this encounter and other current Medications Current Medications (continue as prescribed) Xarelto 20 MG Oral Tablet 11/16/2021 Provider: Diagnosis: Last Documented On 2 3:17PM By Estrellita Vázquez ; [facility], [facility] Metoclopramide HCl 10 MG Oral Tablet 04/21/2019 Prov ider: Chintan Aguayo MD Diagnosis: Last Documented On 9 4:08PM By Daniel Mo ; [facility], [facility] Atorvastatin Calcium 40 MG Oral Tablet 04/21/2019 Pr ovider: Diagnosis: Last Documented On 9 4:08PM By Daniel Mo ; [facility], [facility] Furosemide 40 MG Oral Tablet 04/21/2019 Provider: Diagnosis: Last Documented On 9 4:09PM By Daniel Mo ; [facility], [facility] Potassium Chloride 20 MEQ Oral Packet 04/21/2019 Pro vider: Diagnosis: Last Documented On 9 4:09PM By Daniel Mo ; [facility], [facility] Omeprazole 40 MG Oral Capsul e Delayed Release 04/21/2019 Provider: Chintan Aguayo MD Diagnosis: Last Documented On 9 4:10PM By Daniel Mo ; [facility], [facility] ARIPiprazole 5 MG Oral Tablet 04/14/2019 Provider: Diagnosis: Last Documented On 9 4:10PM By Daniel Mo ; [facility], [facility] Venlafaxine HCl ER 150 MG Or al Capsule Extended Release 24 Hour 03/31/2019 Provider: Diagnosis: Last Documented On 9 4:10PM By Daniel Mo ; [facility], [facility] metFORMIN HCl 1000 MG Oral Tablet 03/10/2019 Provide r: Chintan Aguayo MD Diagnosis: Last Documented On 9 4:10PM By Daniel Mo ; [facility], [facility] Lisinopril-hydroCHLOROthiazi de 20-25 MG Oral Tablet 03/04/2019 Provider: TRELL BECKWITH MD Diagnosis: Last Documented On 9 4:10PM By Daniel Mo ; [facility] Past Medications on file Diclofenac Potassium 50 MG O R TABS 06/27/2014 - 07/27/2014 Provider: Randy DUMONT Diagnosis: be Last Documented On 4 1:34PM By Isa Avendano ; [facility] Medications Administered Includes: Administered Medications from this encounter No Administered Medications Recorded Vital Signs Includes: Vital Signs from this encounter Vital Name 12/12/2021 02:53P Blood Pressure Sitting (mmHg) 142/92 Pulse Rate-Sitting (bpm) 89 Height (in) 72 Weight (lb) 498 Body Mass Index (kg/m2) 67.5 Body Surface Area (m2) 3.1 Note: mg Last Documented: On 12/12/2021 3:18PM ; [facility] Results Includes: Results discussed during [...] Last Documented On 3 1:37PM ; [facility], [facility] Tobacco use 06/27/2014 Last Documented On 2 2:52PM ; [facility] Smoking status : Current everyday smoker 06/27/2014 Last Documented On 2 2:52PM ; [facility] Alcohol use 06/27/2014 Last Documented On 2 2:52PM ; [facility] Current smoker 06/27/2014 Last Documented On 2 2:52PM ; [facility] No caffeine use 06/27/2014 Last Documented On 2 2:52PM ; [facility], [facility] No recent change in diet 06/27/2014 Last Documented On 2 2:52PM ; [facility] Not exercising regularly 06/27/2014 Last Documented On 2 2:52PM ; [facility] Not using drugs 06/27/2014 Last Documented On 2 2:52PM ; [facility] Procedures and Surgical History Includes: Procedures from this encounter Procedures Code Diagnosis Performing Provider Service L ocation Service Date intervention and counseling on cessation of tobacco use 4000F Last Documented On 2 3:18PM ; [facility] pharmacologic therapy for cessation of tobacco u se 4001F Last Documented On 2 2:52PM ; [facility] use of tobacco assessment performed 1000F Last Documented On 2 3:18PM ; [facility] no influenza immunization patient refuse d Last Documented On 2 3:18PM ; [facility] follow-up visit in one month with PCP fo r elevated BP Last Documented On 2 3:18PM ; [facility] Medical History Includes: Medical History addressed during this encounter Description Last Updated No recent immunization for flu 2 Last Documented On 3 1:37PM ; [facility] No recent immunization for pneumococcal pneumonia 12/12/2021 Last Documented On 3 1:37PM ; [facility] Intermittent hypertension 04/22/2019 Last Documented On 2 2:52PM ; [facility] History of depression 04/22/2019 Last Documented On 2 2:52PM ; [facility], [facility] gall bladder, wisdom teeth 06/27/2014 Last Documented On 2 2:52PM ; [facility], [facility] Arthritic joint problems 06/27/2014 Last Documented On 2 2:52PM ; [facility], [facility] History of diabetes mellitus 06/27/2014 Last Documented On 2 2:52PM ; [facility], [facility] History of gastric ulcer 06/27/2014 Last Documented On 2 2:52PM ; [facility], [facility] Family History Includes: Family History addressed during this encounter Description Last Updated Family history of hypertension Last Documented On 2 2:52PM ; [facility] non-contributory 06/27/2014 Last Documented On 2 2:52PM ; [facility] Review of Systems Includes: Review [...] Time Diagnosis Follow Up Emanuel Villa MD [facility] 2 2:49PM 3:57PM Insurance Includes: Active Insurance Policies Plan Name Member ID Group # Subscriber Relationship Effect margarito Dates 1 - [facility] [id number] Gonzalo Russell Self 03/13/2022 - Unknown Clinical Notes Includes: Clinical Notes from this encounter * Progress note Date Encounter Last Documented by 12/12/2021 Follow Up Last documented on 11/02/2022; 1:37 PM, Emanuel Villa MD; [facility], [facility] Active Problems & Conditions - Bone [...] Care Team - ZI CHANG DPM - Carpenter Helper Hardwood Flooring - TRELL BECKWITH MD
--- OUTSIDE RECORDS SUMMARY | 2025-05-31 16:48 | XMS_ITS | Clinical Summary ---
[facility] Address [address] [place] [address] Care Team Providers Care Beehive Kiln Supervisor Name Role Phone Provider, No Known [...] C SCREENING Completed 04/27/2025 Insurance Care Teams Beehive Kiln Supervisor Relationship Specialty Start Date End Date Provider, No Known [facility] [place] [address] PCP - General 02/11/21
--- OUTSIDE RECORDS SUMMARY | 2025-05-31 16:48 | XMS_ITS | Encounter Summary ---
Author Organization Healthcare Address [address] [id number] Care Team Providers Care Media Promoter Name Role Phone Malcolm Hayward RADAR AIR TRAFFIC CONTROLLER Primary Care Provider [phone] Reason for Visit * Reason Comments Med Refill Encounter Details Date Type Department Care Team (Late st Contact Info) Description 07/07/2024 Refill [facility] [address] [place] [address] Mayra Torres PA [address] [address] Type 2 diabetes mellitus (CMS/HCC) [...] Description 06/12/2025 2:00 PM EST Office Visit [facility] [address] [facility] [place] [address] Elaine Campbell PA [address] [facility] [address] [place] [address] 06/22/2025 1:40 PM EST Office Visit [facility] [address] [facility] 5th Floor [address] [place] [address] Mary Vicente MD [address] [facility] [address] [place] [address] 06/23/2025 8:00 AM EST Office Visit [facility] [address] [facility] 5th Floor [address] [place] [address] Sheial Marcano PA [address] [facility] [address] [place] [address] documented as of this encounter Visit Diagnoses [...] as of this encounter Care Teams Media Promoter Relationship Specialty Start Date End Date Malcolm Hayward APRN [address] [place] [address] PCP - General 09/21/23 documented as of this encounter
--- OUTSIDE RECORDS SUMMARY | 2025-05-31 16:48 | XMS_ITS | Encounter Summary ---
Author Organization Healthcare Address [address] [id number] Care Team Providers Care Doctor Osteopathic Name Role Phone Malcolm Hayward GRANULATOR MACHINE OPERATOR Primary Care Provider [phone] Reason for Visit * Reason Comments Med Refill Encounter Details Date Type Department Care Team (Late st Contact Info) Description 04/19/2025 Refill [facility] [address] [place] [address] Divine Archer, GRANULATOR MACHINE OPERATOR [address] [facility] [address] [place] [address] Type 2 diabetes mellitus Social [...] Description 06/12/2025 2:00 PM EST Office Visit [facility] [address] [facility] [place] [address] Elaine Campbell PA [address] [facility] [address] [place] [address] 06/22/2025 1:40 PM EST Office Visit [facility] [address] 5[address] Floor [address] [place] [address] Mary Vicente MD [address] [place] [address] 06/23/2025 8:00 AM EST Office Visit [facility] [address] 5[address] Floor [address] [place] [address] Sheila Maracno PA [address] [place] [address] documented as of this encounter [...] documented as of this encounter Care Teams Doctor Osteopathic Relationship Specialty Start Date End Date Malcolm Hayward APRN [address] [place] [address] [id number] PCP - General 09/21/23 documented as of this encounter
--- OUTSIDE RECORDS SUMMARY | 2025-05-31 16:48 | XMS_ITS | Clinical Summary ---
Author Organization [facility] Address [address] [place] [address] Phone Care Team Providers Care Block Cutter Name Role Phone Allen RUSH, Emanuel Maurice Unavailable [phone] TRELL BECKWITH MD Unavailable [phone] PAWCARL DPZI Blackman Unavailable [phone] Petty Frost PA-C Primary Care Provider [phone] Reason for Visit and Chief Complaint Epidural Steroid Injection Problems Includes: Problems addressed during this encounter and other active Problems All Visits Onset Date Resolved Date Provider Condition S tatus Lower Back Pain 04/22/2019 Emanuel Villa MD Act margarito Last Documented On 9 11:03AM ; [facility] Bone Pain in the Heel 06/27/2014 Randy Booth DPM Active Last Documented On 4 1:06PM ; [facility] Plan of Treatment No Plan of Treatment Recorded Assessments Includes: Assessments from this encounter No Assessments Recorded Medical Equipment - Implanted Devices Includes: Current Devices No Medical Equipment Recorded Medications Includes: Medications discussed during this encounter and other current Medications Current Medications (continue as prescribed) Xarelto 20 MG Oral Tablet 11/16/2021 Provider: Diagnosis: Last Documented On 2 3:17PM By Estrellita Vázquez ; [facility], [facility] Metoclopramide HCl 10 MG Oral Tablet 04/21/2019 Prov ider: Chintan Aguayo MD Diagnosis: Last Documented On 9 4:08PM By Daniel Mo ; [facility], [facility] Atorvastatin Calcium 40 MG Oral Tablet 04/21/2019 Pr ovider: Diagnosis: Last Documented On 9 4:08PM By Daniel Mo ; [facility], [facility] Furosemide 40 MG Oral Tablet 04/21/2019 Provider: Diagnosis: Last Documented On 9 4:09PM By Daniel Mo ; [facility], [facility] Potassium Chloride 20 MEQ Oral Packet 04/21/2019 Pro vider: Diagnosis: Last Documented On 9 4:09PM By Daniel Mo ; [facility], [facility] Omeprazole 40 MG Oral Capsul e Delayed Release 04/21/2019 Provider: Chintan Aguayo MD Diagnosis: Last Documented On 9 4:10PM By Daniel Mo ; [facility], [facility] ARIPiprazole 5 MG Oral Tablet 04/14/2019 Provider: Diagnosis: Last Documented On 9 4:10PM By Daniel Mo ; [facility], [facility] Venlafaxine HCl ER 150 MG Or al Capsule Extended Release 24 Hour 03/31/2019 Provider: Diagnosis: Last Documented On 9 4:10PM By Daniel Mo ; [facility], [facility] metFORMIN HCl 1000 MG Oral Tablet 03/10/2019 Provide r: Chintan Aguayo MD Diagnosis: Last Documented On 9 4:10PM By Daniel Mo ; [facility], [facility] Lisinopril-hydroCHLOROthiazi de 20-25 MG Oral Tablet 03/04/2019 Provider: TRELL BECKWITH MD Diagnosis: Last Documented On 9 4:10PM By Daniel Mo ; [facility], [facility] Medications Administered Includes: Administered Medications [...] Subscriber Relationship Effect margarito Dates 1 - [facility] [id number] Gonzalo Ng 03/13/2022 - Unknown Clinical Notes Includes: Clinical Notes from this encounter No Clinical Notes Recorded
--- OUTSIDE RECORDS SUMMARY | 2025-05-31 16:48 | XMS_ITS | Clinical Summary ---
Author Organization [facility] Address [address] [place] [address] Phone Care Team Providers Care Dumper Bailer Operator Name Role Phone Allen RUSH, Emanuel Maurice Unavailable [phone] TRELL BECKWITH MD Unavailable [phone] PAWCARL DPZI Blackman Unavailable [phone] Petty Frost PA-C Primary Care Provider [phone] Reason for Visit and Chief Complaint Epidural Steroid Injection Problems Includes: Problems addressed during this encounter and other active Problems All Visits Onset Date Resolved Date Provider Condition S tatus Lower Back Pain 04/22/2019 Emanuel Villa MD Act margarito Last Documented On 9 11:03AM ; [facility] Bone Pain in the Heel 06/27/2014 Randy Booth DPM Active Last Documented On 4 1:06PM ; [facility] Plan of Treatment No Plan [...] 2 3:17PM By Estrellita Vázquez ; [facility], [facility] Metoclopramide HCl 10 MG Oral Tablet 04/21/2019 Prov ider: Chintan Aguayo MD Diagnosis: Last Documented On 9 4:08PM By Daniel Mo ; [facility], [facility] Atorvastatin Calcium 40 MG Oral Tablet 04/21/2019 Pr ovider: Diagnosis: Last Documented On 9 4:08PM By Daniel Mo ; [facility], [facility] Furosemide 40 MG Oral Tablet 04/21/2019 Provider: Diagnosis: Last Documented On 9 4:09PM By Daniel Mo ; [facility], [facility] Potassium Chloride 20 MEQ Oral Packet 04/21/2019 Pro vider: Diagnosis: Last Documented On 9 4:09PM By Daniel Mo ; [facility], [facility] Omeprazole 40 MG Oral Capsul e Delayed Release 04/21/2019 Provider: Chintan Aguayo MD Diagnosis: Last Documented On 9 4:10PM By Daniel Mo ; [facility], [facility] ARIPiprazole 5 MG Oral Tablet 04/14/2019 Provider: Diagnosis: Last Documented On 9 4:10PM By Daniel Mo ; [facility], [facility] Venlafaxine HCl ER 150 MG Or al Capsule Extended Release 24 Hour 03/31/2019 Provider: Diagnosis: Last Documented On 9 4:10PM By Daniel Mo ; [facility], [facility] metFORMIN HCl 1000 MG Oral Tablet 03/10/2019 Provide r: Chintan Aguayo MD Diagnosis: Last Documented On 9 4:10PM By Daniel Mo ; [facility], [facility] Lisinopril-hydroCHLOROthiazi de 20-25 MG Oral Tablet 03/04/2019 Provider: TRELL BECKWITH MD Diagnosis: Last Documented On 9 4:10PM By Daniel Mo ; [facility], [facility] Medications Administered Includes: Administered Medications [...] [facility] [id number] Gonzalo Ng 03/13/2022 - Unknown Clinical Notes Includes: Clinical Notes from this encounter No Clinical Notes Recorded
--- OUTSIDE RECORDS SUMMARY | 2025-05-31 16:50 | XMS_ITS | Encounter Summary ---
Author Organization [facility] Address [address] [id number] Care Team Providers Care Rabbet Operator Name Role Phone Malcolm Hayward ADALGISA Primary Care Provider [phone] Encounter Details Date Type Department Care Team (Late st Contact Info) Description 05/26/2025 Telephone Wound Care [address] [place] [address] Sheila Marcano, BLAS [address] [place] [address] Social History Tobacco Use Types Packs/Day Years [...] in a long term (including now)? No 04/28/2025 [facility] Utilities Answer Date Recorded In the [...] encounter Miscellaneous Notes * Telephone Encounter - Sharon Alexander - 05/26/2025 9:42 AM EST Clinical Concern/Question Reason for Call: Pt called, he had a culture done of his wound at [facility] and it came back positive for pseudomonas aeruginosa. She said [facility] said oral abx are not going to work, so she is wondering what she needs to do? Get in touch w/ ID, bring him to ED to be admittedfor IV abx? Asking for a call back. Thanks! Best contact number: Other: [phone] Optimal time of day to reach caller: [...] Description 06/12/2025 2:00 PM EST Office Visit [facility] [address] [facility] [place] [address] Elaine Campbell PA [address] [facility] [address] [place] [address] 06/22/2025 1:40 PM EST Office Visit [facility] [address] [facility] 5th Floor [address] [place] [address] Mary Vicente MD [address] [facility] [address] [place] [address] 06/23/2025 8:00 AM EST Office Visit [facility] [address] [facility] 5th Floor [address] [place] [address] Sheila Marcano PA [address] [place] [address] documented as of this encounter [...] documented as of this encounter Care Teams Rabbet Operator Relationship Specialty Start Date End Date Malcolm Hayward APRN [address] [place] [address] [place] [id number] PCP - General 09/21/23 documented as of this encounter
--- OUTSIDE RECORDS SUMMARY | 2025-05-31 16:50 | XMS_ITS | Encounter Summary ---
Author Organization [facility] Address [address] [id number] Care Team Providers Care Manager International Name Role Phone Malcolm Hayward APRN Primary Care Provider [phone] Encounter Details Date Type Department Care Team [...] any time in the past 12 m [facility], were you homeless or living in a senior care (including now)? No 04/28/2025 [facility] Utilities Answer Date Recorded In [...] Description 06/12/2025 2:00 PM EST Office Visit [facility] [address] [place] [address] Elaine Campbell PA [address] [place] [address] 06/22/2025 1:40 PM EST Office Visit [facility] [address] 5[address] [place] [address] Mary Vicente MD [address] [place] [address] 06/23/2025 8:00 AM EST Office Visit [facility] [address] 5[address] [place] [address] Sheila Marcano, BLAS [address] [place] [address] documented as of this encounter [...] documented as of this encounter Care Teams Manager International Relationship Specialty Start Date End Date Malcolm Hayward APRN [address] [place], [place] [id number] PCP - General 09/21/23 documented as of this encounter
--- OUTSIDE RECORDS SUMMARY | 2025-05-31 16:50 | XMS_ITS | Encounter Summary ---
Author Organization Healthcare Address [address] [id number] Care Team Providers Care Linen Worker Name Role Phone Malcolm Hayward ADALGISA Primary Care Provider [phone] Reason for Visit * Reason Onset Date Comments HCN Clinical Concern/Question 05/19/2025 HCN Status Update Call #1 05/19/2025 Encounter Details Date Type Department Care Team (Late st Contact Info) Description 05/19/2025 Telephone [facility] [address] [facility] 5th Floor Wing [address], [address] [place] [address] Sheila Marcano, BLAS [address] [facility] [address] [place] [address] HCN Clinical Concern/Question; HCN Status Update Call #1 Social History Tobacco Use Types Packs/Day Years [...] living in a mcfp (including now)? 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 Praveen denied any other needs or concerns. * Telephone Encounter - Maxi Laws RN - 05/22/2025 2:13 PM EST RN returned call and left with callback number verbalized. IP vascular surgery signed off 05/03;pt has not yet been seen in clinic. All questions regarding wound care will have to wait till f/u appt. * Telephone Encounter - Breonna Solis - 05/22/2025 12:33 PM EST Status Update Call #1 1st call regarding the status of the initial request. Best contact number: Other: [phone] Optimal time of day to reach caller: ANYTIME Additional comments/information from caller: Following up on messahe Note: Please do not reply to this message. Follow-up communication and further actions as a result of this message need to be communicated with the patient directly, if the patient is not active onMyChart. If the patient is active on MyChart, they will receive notification of the communication/outcome via scanRhart. * Telephone Encounter - Diane Daniels - 05/19/2025 2:11 PM EST Clinical Concern/Question Reason for Call: Praveen from [facility] is calling to see if the patient could get a off loading boot so he could be moved to their facility or if he has to wait until his next carlos a with the clinic on 05/30/25. Please call praveen back with info. Thank you Best contact number: Other: [phone] Optimal time of day to reach caller: [...] Description 06/12/2025 2:00 PM EST Office Visit [facility] [address] [facility] [place] [address] Elaine Campbell PA [address] [facility] [address] [place] [address] 06/22/2025 1:40 PM EST Office Visit [facility] [address] 5th [address] [place] [address] Mary Vicente MD [address] [place] [address] 06/23/2025 8:00 AM EST Office Visit [facility] [address] 5th Floor [address] [place] [address] Sheila Marcano PA [address] [place] [address] documented as of this encounter [...] documented as of this encounter Care Teams Linen Worker Relationship Specialty Start Date End Date Malcolm Hayward APRN [address] [place] [address] PCP - General 09/21/23 documented as of this encounter
--- OUTSIDE RECORDS SUMMARY | 2025-05-31 16:50 | XMS_ITS | Encounter Summary ---
Author Organization [facility] Address [address] [place] [address] Care Team Providers Care Roll Examiner Name Role Phone Malcolm Hayward ADALGISA Primary Care Provider [phone] Encounter Details Date Type Department Care Team (Late st Contact Info) Description 05/24/2025 Telephone Vascular Surgery [address] [place] [address] Rohith Ramires, PATTERNMAKER PRESSURE CAST Social History Tobacco Use Types Packs/Day Years [...] in the past 12 m [facility], were you homeless or living in a chcf (including now)? No 04/28/2025 [facility] Utilities Answer Date Recorded In the [...] encounter Miscellaneous Notes * Nursing Note - Rohith Ramires, RN - 05/24/2025 2:11 PM EST Called patient for 1 week follow up call. Patient is doing well today. Patient knew about his follow up appointment and is able to make. Patient asked about having to bring the wound vac with him to the follow up appointment, and according to his discharge summary, he needs to leave it in place with dressing changes every 2 days until he has his follow up visit on 05/30. Let the patient know thisand confirmed he would be able to make his appointment. documented in this encounter Plan of Treatment Upcoming Encounters Date Type Department Care Team (Late st Contact Info) Description 06/12/2025 2:00 PM EST Office Visit [facility] [address] [facility] [place] [address] Elaine Campbell PA [address] [facility] [address] [place] [address] 06/22/2025 1:40 PM EST Office Visit [facility] [address] 5th Floor [address] [place] [address] Mary Vicente MD [address] [place] [address] 06/23/2025 8:00 AM EST Office Visit [facility] [address] 5th Floor [address] [place] [address] Sheila Marcano PA [address] [place] [address] documented as of this encounter [...] documented as of this encounter Care Teams Roll Examiner Relationship Specialty Start Date End Date Malcolm Hayward APRN [address] [place] [address] PCP - General 09/21/23 documented as of this encounter
--- OUTSIDE RECORDS SUMMARY | 2025-05-31 16:50 | XMS_ITS | Encounter Summary ---
Author Organization Healthcare Address [address] [place] [address] Care Team Providers Care Switchman Name Role Phone Malcolm Hayward ADALGISA Primary Care Provider [phone] Encounter Details Date Type Department Care Team ([facility] st Contact Info) Description 05/01/2025 Orders Only External Location [address] [place] [address] Provider, External Social History Tobacco Use Types [...] in a assisted (including now)? No 04/28/[address] [facility] Utilities Answer Date Recorded In the [...] 6. Suicidal Behavior (Lifetime) No 8:00 AM LOGANT Nitza Mishra, LOLA documented as of this encounter Plan of Treatment Upcoming Encounters Date Type Department Care Team (Late st Contact Info) Description 06/12/2025 2:00 PM EST Office Visit [facility] [address] [place] [address] Elaine Campbell, BLAS [address] [facility] [address] [place] [address] 06/22/2025 1:40 PM EST Office Visit [facility] Comprehensive [facility] [address] 5th Floor [address] [place] [address] Mary Vicente MD [address] [place] [address] 06/23/2025 8:00 AM EST Office [facility] Clinic [address] 5th Floor [address] [place] [address] Sheila Marcano PA [address] [place] [address] documented as of this encounter [...] documented as of this encounter Care Teams Switchman Relationship Specialty Start Date End Date Malcolm Hayward APRN [address] [facility] [address] [place] [address] PCP - General 09/21/23 documented as of this encounter
--- OUTSIDE RECORDS SUMMARY | 2025-05-31 16:50 | XMS_ITS | Encounter Summary ---
Author Organization [facility] Address [address] [id number] Care Team Providers Care Bulk Tank Driver Name Role Phone Malcolm Hayward APRN Primary Care Provider [phone] Encounter Details Date Type Department Care Team (Latest Contact Info) Description 05/24/2025 Travel Social History Tobacco Use Types Packs/Day [...] any time in the past 12 m [facility], were you homeless or living in a halfway (including now)? No 04/28/2025 [facility] Utilities Answer Date Recorded In the past [...] Office Visit [facility] [address] [place] [address] Elaine Campbell PA [address] [facility] [address] [place] [address] 06/22/2025 1:40 PM EST Office Visit [facility] [address] [facility] 5th Floor [address] [place] [address] Mary Vicente MD [address] [facility] [address] [place] [address] 06/23/2025 8:00 AM EST Office Visit [facility] [address] [facility] 5th Floor [address] [place] [address] Sheila Marcano, PA [address] [facility] [address] [place] [address] documented as of this encounter [...] documented as of this encounter Care Teams Bulk Tank Driver Relationship Specialty Start Date End Date Malcolm Hayward APRN [address] [place] [address] PCP - General 09/21/23 documented as of this encounter
--- OUTSIDE RECORDS SUMMARY | 2025-05-31 16:50 | XMS_ITS | Encounter Summary ---
Author Organization [facility] Address [address] [id number] Care Team Providers Care Taper And Floater Name Role Phone Malcolm Hayward APRN Primary Care Provider [phone] Encounter Details Date Type Department Care Team [...] in a mcc (including now)? No 04/28/2025 [facility] Utilities Answer Date Recorded In the past [...] Month) No 025 8:00 AM Deepthi Galeano, LOLA 2. Non-Specific Active Suici jonny Thoughts (Past 1 Month) No 05/17/2025 8:00 AM Deepthi Galeano, RN 6. Suicidal Behavior (Lifetime) No 8:00 AM Deepthi Galeano, RN documented as of this encounter Plan of Treatment Upcoming Encounters Date Type Department Care Team (Late st Contact Info) Description 06/12/2025 2:00 PM EST Office Visit [facility] [address] [place] [address] Elaine Campbell PA [address] [place] [address] 06/22/2025 1:40 PM EST Office Visit [facility] Comprehensive [facility] Clinic [address] 5th Floor [address] [place] [address] Mary Vicente MD [address] [place] [address] 06/23/2025 8:00 AM EST Office Visit [facility] [address] 5th Floor [address] [place] [address] Sheila Marcano, BLAS [address] [place] [address] documented as of this encounter [...] documented as of this encounter Care Teams Taper And Floater Relationship Specialty Start Date End Date Malcolm Hayward APRN [address] [place], [place] [id number] PCP - General 09/21/23 documented as of this encounter
--- OUTSIDE RECORDS SUMMARY | 2025-05-31 16:50 | XMS_ITS | Encounter Summary ---
Author Organization [facility] Address [address] [id number] Care Team Providers Care House Wirer Helper Name Role Phone Malcolm Hayward APRN Primary Care Provider [phone] Encounter Details Date Type Department Care Team [...] any time in the past 12 m [facility], were you homeless or living in a snf (including now)? No 04/28/2025 [facility] Utilities Answer Date Recorded In the past [...] Description 06/12/2025 2:00 PM EST Office Visit [facility] [address] [place] [address] Elaine Campbell PA [address] [facility] [address] [place] [address] 06/22/2025 1:40 PM EST Office Visit [facility] Clinic [address] 5th Floor [address] [place] [address] Mary Vicente MD [address] [place] [address] 06/23/2025 8:00 AM EST Office Visit [facility] [address] [facility] 5th Floor [address] [place] [address] Sheila Marcano PA [address] [place] [address] documented as of this encounter [...] documented as of this encounter Care Teams House Wirer Helper Relationship Specialty Start Date End Date Malcolm Hayward APRN [address] [place] [address] PCP - General 09/21/23 documented as of this encounter
--- OUTSIDE RECORDS SUMMARY | 2025-05-31 16:50 | XMS_ITS | Encounter Summary ---
Author Organization Healthcare Address [address] [id number] Care Team Providers Care Hot Tar Roofer Helper Name Role Phone Malcolm Hayward ADALGISA Primary Care Provider [phone] Encounter Details Date Type Department Care Team ([facility] st Contact Info) Description 05/29/2025 Telephone [facility] [address] [place] [address] Pcp, No [address] [place] [address] Social History Tobacco Use Types Packs/Day Years [...] any time in the past 12 m [facility], were you homeless or living in a usp (including now)? No 04/28/2025 [facility] Utilities Answer Date Recorded In the [...] Miscellaneous Notes * Telephone Encounter - Mary Anne Rodriguez - 05/29/2025 2:18 PM EST Clinical Concern/Question Reason for Call: pts calling to check status of referral. Please call with updates Best contact number: [phone] (mobile) Optimal time of day to reach caller: ANYTIME Additional comments/information from caller: None Note: Please do not reply to this message. Follow-up communication and further actions as a result of this message need to be communicated with the patient directly, if the patient is not active onMyChart. If the patient is active on MyChart, they will receive notification of the communication/outcome via [employer]. documented in this encounter Plan of Treatment Upcoming Encounters Date Type Department Care Team (Late st Contact Info) Description 06/12/2025 2:00 PM EST Office Visit [facility] [address] [facility] [place] [address] Elaine Campbell PA [address] [facility] [address] [place] [address] 06/22/2025 1:40 PM EST Office Visit [facility] [address] 5th [address] [place] [address] Mary Vicente MD [address] [place] [address] 06/23/2025 8:00 AM EST [facility] [address] 5[address] [place] [address] Sheila Marcano PA [address] [place] [address] documented as of this encounter [...] documented as of this encounter Care Teams Hot Tar Roofer Helper Relationship Specialty Start Date End Date Malcolm Hayward APRN [address] [place] [address] PCP - General 09/21/23 documented as of this encounter
--- OUTSIDE RECORDS SUMMARY | 2025-05-31 16:50 | XMS_ITS | Encounter Summary ---
Author Organization Healthcare Address [address] [id number] Care Team Providers Care Erector Operator Name Role Phone Malcolm Hayward ADALGISA Primary Care Provider [phone] Reason for Visit * Reason Onset Date Comments HCN - Patient Message 05/24/2025 Call pankaj morrissey HCN Status Update Call #2 05/24/2025 Encounter Details Date Type Department Care Team ([place] st Contact Info) Description 05/24/2025 Telephone [facility] [address] [facility] 5th Floor Wing [address] [place] [address] Sheila Marcano, PA [address] [facility] [address] [place] [address] HCN - Patient Message (Call request ); HCN Status Update Call #2 Social History Tobacco Use Types Packs/Day Years [...] any time in the past 12 m [facility], were you homeless or living in a assisted (including now)? No 04/28/2025 [facility] Utilities Answer Date Recorded In the [...] encounter Miscellaneous Notes * Telephone Encounter - Deepthi Tejada RN - 05/29/2025 2:39 PM EST Per , referral has been sent from PCP to [facility]. They are still awaiting call for when he can beseen by them. She sattes she will be at appointment tomorrow. No further concerns. * Telephone Encounter - Breonna Solis - 05/26/2025 8:28 AM EST Status Update Call #2 2nd call regarding the status of the initial request. Best contact number: [phone] Optimal time of day to reach caller: ANYTIME Additional comments/information from caller: Spouse is calling back and asking to talk to someone she can not see the message and has concerns , please call her Note: Please do not reply to this message. Follow-up communication and further actions as a result of this message need to be communicated with the patient directly, if the patient is not active onMyChart. If the patient is active on MyChart, they will receive notification of the communication/outcome via MyChart. * Telephone Encounter - Deepthi Tejada RN - 05/26/2025 8:23 AM EST Addressed via patient advice encounter * Telephone Encounter - Araceli Duffy - 05/24/2025 4:22 PM EST Patient Phone Message Reason for Call: Maggie requesting a return call regarding pt having home health 3 times a week to change wound vac dressing. Maggie states they do not have an offloading boot or a wheelchair and concerned about him having to put weight on it for 05/30 appt and would like to know if they can push the appt out a couple weeks. Best contact number and optimal time of day to reach caller: [phone] Note: Please do not reply to this [...] EST Office Visit [facility] [address] [facility] [place] [address] Elaine Campbell PA [address] [facility] [address] [place] [address] 06/22/2025 1:40 PM EST Office Visit [facility] Comprehensive [facility]ascular Clinic [address] 5th Floor [address] [place] [address] Mary Vicente MD [address] [place] [address] 06/23/2025 8:00 AM EST Office Visit [facility] [address] 5th Floor [address] [place] [address] Sheila Marcano PA [address] [place] [address] documented as of this encounter [...] documented as of this encounter Care Teams Erector Operator Relationship Specialty Start Date End Date Malcolm Hayward APRN [address] [place] [address] PCP - General 09/21/23 documented as of this encounter
--- OUTSIDE RECORDS SUMMARY | 2025-05-31 16:51 | XMS_ITS | Clinical Summary ---
Author Organization [facility] Address [address] [place] [address] Phone Care Team Providers Care Software Development Test Engineer Name Role Phone Allen RUSH, Emanuel Maurice Unavailable [phone] TRELL BECKWITH MD Unavailable [phone] PAWCARL DPZI Blackman Unavailable [phone] Petty Frost PA-C Primary Care Provider [phone] Reason for Visit and Chief Complaint Epidural Steroid Injection Problems Includes: Problems addressed during this encounter and other active Problems All Visits Onset Date Resolved Date Provider Condition S tatus Lower Back Pain 04/22/2019 Emanuel Villa MD Act margarito Last Documented On 9 11:03AM ; [facility] Bone Pain in the Heel 06/27/2014 Randy Booth DPM Active Last Documented On 4 1:06PM ; [facility] Plan of Treatment No Plan [...] On 2 3:17PM By Estrellita Vázquez ; [facility], [facility] Metoclopramide HCl 10 MG Oral Tablet 04/21/2019 Prov ider: Chintan Aguayo MD Diagnosis: Last Documented On 9 4:08PM By Daniel Mo ; [facility], [facility] Atorvastatin Calcium 40 MG Oral Tablet 04/21/2019 Pr ovider: Diagnosis: Last Documented On 9 4:08PM By Dainel Mo ; [facility], [facility] Furosemide 40 MG Oral Tablet 04/21/2019 Provider: Diagnosis: Last Documented On 9 4:09PM By Daniel Mo ; [facility], [facility] Potassium Chloride 20 MEQ Oral Packet 04/21/2019 Pro vider: Diagnosis: Last Documented On 9 4:09PM By Daniel Mo ; [facility], [facility] Omeprazole 40 MG Oral Capsul e Delayed Release 04/21/2019 Provider: Chintan Aguayo MD Diagnosis: Last Documented On 9 4:10PM By Daniel Mo ; [facility] ARIPiprazole 5 MG Oral Tablet 04/14/2019 Provider: Diagnosis: Last Documented On 9 4:10PM By Daniel Mo ; [facility], [facility] Venlafaxine HCl ER 150 MG Or al Capsule Extended Release 24 Hour 03/31/2019 Provider: Diagnosis: Last Documented On 9 4:10PM By Daniel Mo ; [facility], [facility] metFORMIN HCl 1000 MG Oral Tablet 03/10/2019 Provide r: Chintan Aguayo MD Diagnosis: Last Documented On 9 4:10PM By Daniel Mo ; [facility], [facility] Lisinopril-hydroCHLOROthiazi de 20-25 MG Oral Tablet 03/04/2019 Provider: TRELL BECKWITH MD Diagnosis: Last Documented On 9 4:10PM By Daniel Mo ; [facility], [facility] Medications Administered Includes: Administered Medications from this [...] Diagnosis Epidural Steroid Injection Emanuel Villa MD [facility] 03/26/20 22 11:04AM 11:54AM Insurance Includes: Active Insurance Policies Plan Name Member ID Group # Subscriber Relationship Effect margarito Dates 1 - [facility] [id number] Gonzalo Ng 03/13/2022 - Unknown Clinical Notes Includes: Clinical Notes from this encounter No Clinical Notes Recorded
--- OUTSIDE RECORDS SUMMARY | 2025-05-31 16:51 | XMS_ITS | Encounter Summary ---
Author Organization [facility] Address [address] [id number] Care Team Providers Care Coding Compliance Auditor Name Role Phone Malcolm Hayward APRN Primary Care Provider [phone] Encounter Details Date Type Department Care Team [...] time in the past 12 m [facility], were you homeless or living in a care home (including now)? No 04/28/2025 [facility] Utilities Answer Date Recorded In [...] Description 06/12/2025 2:00 PM EST Office Visit [facility] [address] [place] [address] Elaine Campbell PA [address] [facility] [address] [place] [address] 06/22/2025 1:40 PM EST Office Visit [facility] Clinic [address] 5th [address] [place] [address] Mary Vicente MD [address] [place] [address] 06/23/2025 8:00 AM EST Office Visit [facility] Comprehensive [facility] Clinic [address] 5th [address] [place] [address] Sheila Marcano, BLAS [address] [place] [address] documented as of this encounter [...] documented as of this encounter Care Teams Coding Compliance Auditor Relationship Specialty Start Date End Date Malcolm Hayward APRN [address] [place], [place] [id number] PCP - General 09/21/23 documented as of this encounter
--- OUTSIDE RECORDS SUMMARY | 2025-05-31 16:51 | XMS_ITS | Clinical Summary ---
Author Organization [facility] Address [address] [place] [address] Care Team Providers Care Software Build Engineer Name Role Phone Malcolm Hayward ADALGISA Primary Care Provider [phone] Allergies Active Allergy Reactions Criticality Noted Date [...] g 3 Active Insulin Pen Needle (Pen [place]) 31G X 5 MM [facility], [...] day with meals. 10 mL 5 Active gabapentin (Neurontin) 600 MG tablet Take [...] 3 times a day. 022 2024 Discontinued HYDROcodone-aceta minophen ([place]) 10-325 MG tablet Take 1 tablet by mouth every 6 hours as needed. 2024 Discontinued insulin regular (HumuLIN R,NovoLIN R) 100 UNIT/ML injection vialIndications:T ype 2 Diabetes Mellitus Inject 200 Units under the skin 2 times a day with meals. 2024 Discontinued HYDROcodone-aceta minophen ([place]) 10-325 MG tablet Take 1 tablet by mouth every 6 hours as needed for severe pain for up to 3 days. 5 tablet 025 2024 Active Problems Problem Noted Date Diagnosed Date Diabetic foot ulcer with osteomyelitis Pyogenic inflammation of bone 04/27/2025 Abscess of groin, right 12/12/2024 Assessment & Plan (12/15/2024 3:31 PM EDT): I&D with yonis drain placement Washout daily and cont dressing changes Alcohol abuse 05/19/2024 Anxiety disorder 05/19/2024 Callus of foot 05/19/2024 Change of skin color 05/19/2024 Chest wall pain 05/19/2024 CHF (congestive heart failure) 05/19/2024 COPD (chronic obstructive pulmonary disease) 01/2024 Decreased pedal pulses 05/19/2024 Dehydration 05/19/2024 Dependence on supplemental oxygen 05/19/2024 Depression 05/19/2024 Diabetic neuropathy 05/19/2024 Dyspnea 05/19/2024 Epididymitis 05/19/2024 Hyperglycemia due to type 2 diabetes mellitus Insomnia 05/19/2024 Lumbar radiculopathy 05/19/2024 Mood swings 05/19/2024 Nausea 05/19/2024 Noncompliance 05/19/2024 Onychodystrophy 05/19/2024 Open wound of second toe of left foot 05/19/2024 Palpitations 05/19/2024 Atrial fibrillation with rapid ventricular respo nse 05/19/2024 Primary osteoarthritis of knees, bilateral 05/19 [...] Problem Noted Date Diagnosed Date Resolved Date Abnormal ECG 05/19/2024 05/21/2025 Acute kidney injury 05/19/2024 04/02/20 25 Bilateral knee pain 05/19/2024 05/21/20 25 CAP (community acquired pneumonia) 05/19/2024 04/02/2025 Cellulitis 05/19/2024 04/02/2025 Edema of both lower extremities 05/19/2024 05/21/2025 Gastroenteritis 05/19/2024 04/02/2025 Left lower lobe pneumonia 05/19/2024 Numbness and tingling of both legs 05/19/2024 05/21/2025 Onychomycosis 05/19/2024 05/21/2025 Peripheral edema 05/19/2024 05/21/2025 Sepsis 05/19/2024 04/02/2025 UTI (urinary tract infection) 05/19/2024 04/02/2025 Encounters Date Type Department Care Team Description 05/29/2025 Telephone [facility] [address] [place] [address] Pcp, No 05/26/2025 Telephone Wound Care [address] [place] [address] Sheila Marcano PA 05/24/2025 Telephone [facility] [address] [facility] 5th Floor [address] [place] [address] Sheila Marcano PA HCN - Patient Message (Call request ); HCN Status Update Call #2 05/24/2025 Telephone Vascular Surgery [address] [place] [address] Rohith Ramires RN 05/24/2025 Travel 05/19/2025 Telephone [facility] [address] [facility] 5th Floor [address] [place] [phone] Sheila Marcano PA HCN Clinical Concern/Question; HCN Status Update Call #1 05/18/2025 Travel 05/17/2025 Travel 05/01/2025 7:30 AM EDT - 05/01/2025 8:50 AM EDT Surgery [facility] [address] [place] [phone] Mary Vicente MD AMPUTATION,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 4th 05/01/2025 7:28 AM EDT Anesthesia Event [facility] [address] [place] [address] Gilberto Rivera MD Ford, Richard F, MD 05/01/2025 Orders Only External Location [address] [place] [phone] Provider, External 05/01/2025 Travel 04/28/2025 Travel 04/27/2025 9:29 PM EDT - 05/18/2025 11:48 AM EST Hospital Encounter [facility] [address] [place] [address] Jessa Law MD Chapman, Steven B, Greg Armenta MD Oo, Yadana, MD Gerrard, Miranda E, MD Ramay, Tehreem K, MD Bhatti, Umar R, Other chronic osteomyelitis of right foot (CMS/HCC) (Primary Dx); Diabetic foot ulcer with osteomyelitis; Uncontrolled type 2 diabetes mellitus with hyperglycemia, with long-term current use of insulin; Type 2 diabetes mellitus with diabetic peripheral angiopathy without gangrene, with long-term current use of insulin Discharge Disposition: [facility] 04/27/2025 Travel 04/19/2025 Refill [facility] [address] [place] [address] 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 No 04/28/2025 [facility] Utilities Answer Date Recorded In the [...] Description 06/12/2025 2:00 PM EST Office Visit [facility] [address] [place] [address] Elaine Campbell PA [address] [facility] [address] [place] [address] 06/22/2025 1:40 PM EST Office Visit [facility] [address] 5th Floor [address] [place] [address] Mary Vicente MD [address] [facility] [address] [place] [address] 06/23/2025 8:00 AM EST Office Visit [facility] [address] 5th Floor [address] [place] [address] Sheila Marcano, PA [address] [place] [address] Health Maintenance Due Date Last Done Comments [facility]-Medicare Annual Wellness (AWV) 1977 [facility]-Infant/Child/Adol SDOH Screenings 1977 Diabetes: Dental Exam 1987 [facility]-DTaP,Tdap,and Td Vaccines (1 - Tdap) 1996 [facility]-Hepatitis B Vaccines (1 of 3 - 19+ 3-dose series) 1996 CT Colonography 2022 Colonoscopy 2022 FIT-DNA 2022 FIT 2022 FOBT 2022 Sigmoidoscopy 2022 [facility]-Colorectal Cancer Screening 2022 [id number] Vaccine (3 - 2024- season) 2025 02/22/2021, [...] 8:09 AM EST) Only the most recent of96 resultswithin the time period is included. POCT Glucose 124(H) 74 - 99 mg/dL 05/18/2025 8:11 AM EST [facility] Comment:Accuracy of a glucos e result [...] for testing. Comment 05/18/2025 8:11 AM EST [facility] Solar Installation Manager ID Char Hinojosa 05/18/2025 8:11 AM EST [facility] Device ID [id number] 05/18/2025 8:11 AM EST [facility] Specimen Type POC Capillary 05/18/2025 8:11 AM EST [facility] Blood Capillary blood specimen / Unknown 05/18/2025 8:09 AM EST 05/18/2025 8:11 AM EST Wily Goyal DO LAB POINT OF CARE TE ST DOCKED DEVICE UNSOLICITED RESULTS Final Result [facility] [address] [place] [address] * ECHO, ADULT TRANSTHORACIC COMPLETE W/ CONTRAST [...] Ao Diam 37 mm HANK ISCV PA VT(ACCEL) 24.6 mmHg HANK ISCV LV mean PG [...] is no recent study available for direct [id number]-[id number] comparison. Left Ventricle The left ventricle is [...] is no recent study available for direct iesu-rn-nspk comparison. Wily Goyal DO CV ECHO PROCEDURES Final Result * ECG Adult (05/16/2025 3:33 PM EST) Only the most recent of6 resultswithin the time period is included. EKG DIAGNOSIS CLASS Abnormal MUSE ECG Ventricular Rate 58 BPM MUSE ECG Atrial Rate 58 BPM MUSE ECG VT Interval 184 ms MUSE ECG QRSD Interval 158 ms MUSE ECG QT Interval 496 ms MUSE ECG QTC Interval 486 ms MUSE ECG P [place] 30 degrees MUSE ECG R [place] -35 degrees MUSE ECG T Wave [place] -5 degrees MUSE ECG Diagnosis Sinus bradycardia MUSE ECG Diagnosis Left axis deviation MUSE ECG Diagnosis Right bundle branch block MUSE ECG Diagnosis Minimal voltage criteria for LVH, may be normal variant ( R in aVL ) MUSE ECG Diagnosis Abnormal ECG MUSE ECG Diagnosis MUSE ECG Diagnosis Confirmed by Lorie Montejo ([id number]) on 05/18/2025 12:15:08 AM MUSE ECG 05/16/2025 3:33 PM EST 05/18/2025 12:15 AM EST Kazar Rodrick SanchezJay Jay DO ECG ORDERABLES Final Result MUSE ECG * (ABNORMAL) CBC and Differential (05/16/2025 4:08 AM EST) Only the most recent of12 resultswithin the time period is included. WBC Count 7.97 3.70 - 10.30 10*3/uL LAB HEMATOLOGY METHOD 05/16/2025 4:26 AM EST [facility] RBC Count 4.27(L) 4.60 - 6.10 10*6/uL LAB HEMATOLOGY METHOD 05/16/2025 4:26 AM EST [facility] HGB 9.5(L) 13.7 - 17.5 g/dL LAB HEMATOLOGY METHOD 05/16/2025 4:26 AM [facility] HCT 31.6(L) 40.0 - 51.0 % LAB HEMATOLOGY METHOD 05/16/2025 4:26 AM EST [facility] Platelet Count 264 155 - 369 10*3/uL LAB HEMATOLOGY METHOD 05/16/2025 4:26 AM [facility] MCV 74(L) 79 - 98 fL LAB HEMATOLOGY METHOD 05/16/2025 4:26 AM [facility] MCH 22.2(L) 26.0 - 32.0 pg LAB HEMATOLOGY METHOD 05/16/2025 4:26 AM EST [facility] MCHC 30.1(L) 30.7 - 35.5 g/dL LAB HEMATOLOGY METHOD 05/16/2025 4:26 AM [facility] RDW 17.9(H) 11.5 - 14.5 % LAB HEMATOLOGY METHOD 05/16/2025 4:26 AM [facility] MPV 9.2 8.8 - 12.5 fL LAB HEMATOLOGY METHOD 05/16/2025 4:26 AM [facility] nRBC 0.0 <=0.0 per 100 WBCs LAB HEMATOLOGY METHOD 05/16/2025 4:26 AM [facility] Differential Type Automated LAB HEMATOLOGY METHOD 05/16/2025 4:26 AM [facility] Neutrophils % 67 % LAB HEMATOLOGY METHOD 05/16/2025 4:26 AM [facility] Lymphocytes % 16 % LAB HEMATOLOGY METHOD 05/16/2025 4:26 AM [facility] Monocytes % 12 % LAB HEMATOLOGY METHOD 05/16/2025 4:26 AM [facility] Eosinophils % 3 % LAB HEMATOLOGY METHOD 05/16/2025 4:26 AM [facility] Basophils % 1 % LAB HEMATOLOGY METHOD 05/16/2025 4:26 AM [facility] Immature Granulocytes % 1 % LAB HEMATOLOGY METHOD 05/16/2025 4:26 AM [facility] Neutrophils Absolute 5.39 1.60 - 6.10 10*3/uL LAB HEMATOLOGY METHOD 05/16/2025 4:26 AM [facility] Lymphocytes Absolute 1.30 1.20 - 3.90 10*3/uL LAB HEMATOLOGY METHOD 05/16/2025 4:26 AM [facility] Monocytes Absolute 0.93(H) 0.30 - 0.90 10*3/uL LAB HEMATOLOGY METHOD 05/16/2025 4:26 AM [facility] Eosinophils Absolute 0.26 0.00 - 0.50 10*3/uL LAB HEMATOLOGY METHOD 05/16/2025 4:26 AM [facility] Basophils Absolute 0.05 0.00 - 0.10 10*3/uL LAB HEMATOLOGY METHOD 05/16/2025 4:26 AM [facility] Immature Granulocytes Absolute 0.04 0.00 - 0.06 10*3/uL LAB HEMATOLOGY METHOD 05/16/2025 4:26 AM EST [facility] Blood Venous blood specimen / Unknown Venipuncture / Unknown 05/16/2025 4:08 AM EST 05/16/2025 4:17 AM EST Narrative [facility] - 05/16/2025 4:26 AM EST Therapeutic decision making should be based on absolute values, rather than percentages. us Selin Lee MD LAB BLOOD ORDERABLES Final Re sult Performing Organization Address City/[facility]/ZIP Co de Phone Number [facility] [address] [place] [address] * Phosphorus, Plasma (05/16/2025 4:08 AM EST) Only the most recent of11 resultswithin the time period is included. Phosphorus, Plasma 3.7 2.5 - 4.5 mg/dL 05/16/2025 4:[address] [facility] Blood Venous blood specimen / Unknown Venipuncture / Unknown 05/16/2025 4:08 AM EST 05/16/2025 4:16 AM EST us Selin Lee MD LAB BLOOD ORDERABLES Final Re sult Performing Organization Address [facility] Co de Phone Number [facility] [address] [place] [address] * (ABNORMAL) Magnesium, Plasma (05/16/2025 4:08 AM EST) Only the most recent of13 resultswithin the time period is included. Magnesium, Plasma 1.8(L) 1.9 - 2.4 mg/dL 05/16/2025 4:48 AM EST [facility] Blood Venous blood specimen / Unknown Venipuncture / Unknown 05/16/2025 4:08 AM EST 05/16/2025 4:16 AM EST us Selin Lee MD LAB BLOOD ORDERABLES Final Re sult Performing Organization Address City/[facility]/ZIP Co de Phone Number [facility] [address] [place] [address] * (ABNORMAL) Basic Metabolic Panel, Plasma (05/16/2025 4:08 AM EST) Only the most recent of12 resultswithin the time period is included. Glucose, Plasma 168(H) 74 - 99 mg/dL 05/16/2025 4:48 AM EST [facility] BUN, Plasma 19 7 - 21 mg/dL 05/16/2025 4:48 AM EST [facility] Creatinine, Plasma 0.86 0.70 - 1.20 mg/dL 05/16/2025 4:48 AM EST [facility] BUN/Creatinine Ratio 22 05/16/2025 4:48 AM EST [facility] Sodium, Plasma 131(L) 136 - 145 mmol/L 05/16/2025 4:48 AM EST [facility] Potassium, Plasma 3.6 3.6 - 4.9 mmol/L 05/16/2025 4:48 AM EST [facility] Chloride, Plasma 88(L) 97 - 107 mmol/L 05/16/2025 4:48 AM EST [facility] CO2, Plasma 34(H) 22 - 29 mmol/L 05/16/2025 4:48 AM EST [facility] Anion Gap 9 6 - 16 mmol/L 05/16/2025 4:48 AM EST [facility] Total Calcium, Plasma 9.3 8.9 - 10.2 mg/dL 05/16/2025 4:48 AM EST [facility] eGFRcr 107.5 mL/min/1.7 3m*2 05/16/2025 4:48 AM EST [facility] Comment:Reported eGFRcr in m L/min/1.73m2 is based the CKD-EPI 2020 equation that does not use a race coefficient. Blood Venous blood specimen / Unknown Venipuncture / Unknown 05/16/2025 4:08 AM EST 05/16/2025 4:16 AM EST us Selin Lee MD LAB BLOOD ORDERABLES Final Re sult [facility] [address] [place] [address] * PSA, diagnostic (05/06/2025 12:27 PM EDT) Pathologist [facility] PSA, Diagnostic, Serum 0.03 0.00 - 2.50 ng/mL 05/06/2025 1:10 PM EDT [facility] Blood Venous blood specimen / Unknown Venipuncture / Unknown 05/06/2025 12:27 PM EDT 05/06/2025 12:33 PM EDT Narrative [facility] - 05/06/2025 1:10 PM EDT Performed by Bella electrochemiluminescent immunoassay which is standardized against the PSA Jeb Reference Standard (WHO 96/670). Results obtained with different test methods or kits cannot be used interchangeably. Diane Guzman MD LAB BLOOD ORDERABLES Final Result Performing Organization Address City/[facility]/ZIP Co de Phone Number [facility] [address] [place] [address] * Creatine Kinase (CK), Total (05/03/2025 6:22 PM EDT) Only the most recent of4 resultswithin the time period is included. [facility] Creatine Kinase, Plasma 54 49 - 320 U/L 05/03/2025 7:13 PM EDT [facility] Blood Venous blood specimen / Unknown Venipuncture / Unknown 05/03/2025 6:22 PM EDT 05/03/2025 6:38 PM EDT Diane Guzman MD LAB BLOOD ORDERABLES Final Result [facility] [address] [place] [address] * (ABNORMAL) Comprehensive metabolic panel (05/03/2025 6:22 PM EDT) Only the most recent of2 resultswithin the time period is included. [facility] Glucose, Plasma 290(H) 74 - 99 mg/dL 05/03/2025 7:13 PM EDT [facility] BUN, Plasma 14 7 - 21 mg/dL 05/03/2025 7:13 PM EDT [facility] Creatinine, Plasma 0.71 0.70 - 1.20 mg/dL 05/03/2025 7:13 PM EDT [facility] BUN/Creatinine Ratio 20 05/03/2025 7:13 PM EDT [facility] Sodium, Plasma 133(L) 136 - 145 mmol/L 05/03/2025 7:13 PM EDT [facility] Potassium, Plasma 3.6 3.6 - 4.9 mmol/L 05/03/2025 7:13 PM EDT [facility] Chloride, Plasma 87(L) 97 - 107 mmol/L 05/03/2025 7:13 PM EDT [facility] CO2, Plasma 37(H) 22 - 29 mmol/L 05/03/2025 7:13 PM EDT [facility] Anion Gap 9 6 - 16 mmol/L 05/03/2025 7:13 PM EDT [facility] Total Calcium, Plasma 9.4 8.9 - 10.2 mg/dL 05/03/2025 7:13 PM EDT [facility] Total Protein 8.0(H) 6.3 - 7.9 g/dL 05/03/2025 7:13 PM EDT [facility] Albumin, Plasma 3.6 3.5 - 5.2 g/dL 05/03/2025 7:13 PM EDT [facility] AST, Plasma 18 10 - 50 U/L 05/03/2025 7:13 PM EDT [facility] ALT, Plasma 12 10 - 50 U/L 05/03/2025 7:13 PM EDT [facility] Alkaline Phosphatase, Plasma 64 40 - 115 U/L 05/03/2025 7:13 PM EDT [facility] Total Bilirubin, Plasma 0.7 0.2 - 1.1 mg/dL 05/03/2025 7:13 PM EDT [facility] eGFRcr 113.9 mL/min/1.7 3m*2 05/03/2025 7:13 PM EDT [facility] Comment:Reported eGFRcr in m L/min/1.73m2 is based the CKD-EPI 2020 equation that does not use a race coefficient. Blood Venous blood specimen / Unknown Venipuncture / Unknown 05/03/2025 6:22 PM EDT 05/03/2025 6:38 PM EDT us Diane Guzman MD LAB BLOOD ORDERABLES Final Result Performing Organization Address [facility] Co de Phone Number [facility] [address] [place] [address] * Hepatitis B Surface Antibody, Quantitative (05/03/2025 3:16 AM EDT) Pathologist [facility] Hepatitis B Surface Antibody, Quantitative <8.00 NonReactiv e: <8, [place]: 8 - <12, Reactive: >= 12 mIU/mL 05/03/2025 4:28 AM EDT [facility] Comment: Nonreactive. Individual is considered not immune to HBV infection. Blood Venous blood specimen / Unknown Venipuncture / Unknown 05/03/2025 3:16 AM EDT 05/03/2025 3:24 AM EDT us Diane Guzman MD LAB BLOOD ORDERABLES Final Result Performing Organization Address [facility] Co de Phone Number [facility] [address] [place] [address] * Hepatitis A Antibody IgG (05/03/2025 3:16 AM EDT) Pathologist [facility] Hepatitis A Antibody IgG Negative Negative 05/03/2025 4:28 AM EDT [facility] Blood Venous blood specimen / Unknown Venipuncture / Unknown 05/03/2025 3:16 AM EDT 05/03/2025 3:24 AM EDT us Diane Guzman MD LAB BLOOD ORDERABLES Final Result Performing Organization Address City/[facility]/ZIP Co de Phone Number [facility] [address] [place] [address] * Hepatitis B Core Total Antibody IgG,IgM (05/03/2025 3:16 AM EDT) Hepatitis B Core Total Antibody IgG,IgM Negative Negative 05/03/2025 4:28 AM EDT [facility] Blood Venous blood specimen / Unknown Venipuncture / Unknown 05/03/2025 3:16 AM EDT 05/03/2025 3:24 AM EDT us Diane Guzman MD LAB BLOOD ORDERABLES Final Result Performing Organization Address City/[facility]/ZIP Co de Phone Number [facility] [address] [place] [address] * Hepatitis B Surface Antigen (05/03/2025 3:16 AM EDT) [facility] Hepatitis B Surf Antigen Negative Negative 05/03/2025 4:28 AM EDT [facility] Blood Venous blood specimen / Unknown Venipuncture / Unknown 05/03/2025 3:16 AM EDT 05/03/2025 3:24 AM EDT us Diane Guzman MD LAB BLOOD ORDERABLES Final Result Performing Organization Address [facility] de Phone Number [facility] [address] [place] [address] * Nasopharyngeal Respiratory Panel (05/02/2025 1:05 PM EDT) [facility] Nasopharyngeal Respiratory PCR Interpretation Not Detected for all analytes Not Detected for all analytes 05/02/2025 3:14 PM EDT [facility] Swab Nasopharyngeal structure / Unknown Non-blood Collection / Unknown 05/02/2025 1:05 PM EDT 05/02/2025 1:12 PM EDT Narrative [facility] - 05/02/2025 3:14 PM [...] Respiratory PCR Panel is performed using the [employer] ePlex instrument. This test is FDA approved for use with Nasopharyngeal swabs only. This test is used for clinical purposes. It should not be regarded as investigational or for research. The [facility] Clinical Microbiology Laboratory is certified under the Clinical Laboratory Improvement Amendments of 1988 (CLIA-88) as qualified to perform high complexity clinical laboratory testing. Diane Guzman MD LAB MICROBIOLOGY - GENERAL ORDERABLES Final Result [facility] [address] [place] [address] * Surgical Pathology Exam (05/01/2025 8:13 AM EDT) Case Report Surgical Pathology Case: [id number] Authorizing Provider: Mary Vicente MD Collected: 05/01/202513 Ordering Location: [facility]PER[facility] Received: 05/01/2025 09 Pathologist: Vidya Ly MD Specimens: A) - Toe, Right, R 5th toe B) - Toe, Right, R 5th toe margin 05/09/2025 9:56 AM EDT [facility] Correction History Case amended to provide diagnosis after final decal sections received 05/09/2025 9:56 AM EDT [facility] Comment:These results have b een appended to a previously final verified report. Final Diagnosis A. RIGHT FIFTH TOE, AMPUTATION: - ULCER WITH SUPPURATIVE INFLAMMATION, GANGRENOUS NECROSIS, AND UNDERLYING ACUTE OSTEOMYELITIS. B. RIGHT FIFTH TOE MARGIN, RESECTION: - NO ACUTE OSTEOMYELITIS IDENTIFIED. 05/09/2025 9:56 AM EDT [facility] Amendment electronically signed by Vidya Ly MD on 05/09/2025 at 0956 EDT at 1233 EDT Comment:Corrected result: Pr eviously reported as [Previous value contains rich text formatting which cannot be displayed here] (see Result History) on 05/05/2025 at 1233 EDT. Clinical Information Other chronic osteomyelitis of right foot (CMS/[facility]) [M86.671] 05/09/2025 9:56 AM EDT [facility] Gross Description A. R [...] The wound extends into the underlying bone. Taxi Proprietor sections are submitted as follows: A1-A2: Necrotic lateral skin A3: Bone underlying gaping wound, following decalcification A4: Bone margin, following decalcification BLAS Kwok ([facility]) B. R 5TH TOE MARGIN The specimen is received fresh and placed in formalin, labeled R 5th toe MARGIN , and consists of a 2.8 x 2.8 x 0.6 cm aggregate of hemorrhagic bony fragments. The specimen is entirely submitted in cassette B1, following decalcification. Cold Time: 25m BLAS Kwko ([facility]) 05/09/2025 9:56 AM EDT [facility] Note: 05/09/2025 9:56 AM EDT [facility] Comment:Corrected result: Pr eviously [...] LAB PATHOLOGY ORDERABLES Edited Result - Final [facility] [address] [place] [address] * PB POINT OF CARE IMAGING PLACEHOLDER [...] monitoring: continuous pulse ox, heart rate and nurse monitoring Block type: adductor canal and popliteal Laterality: [...] ORDERA BLES Final Result Performing Organization Address City/[facility] Co de Phone Number BLOOD BANK [address] [place] [address], [place] * POC Imaging (05/01/2025) Anatomical Region Laterality Modality Pelvis Other 05/01/2025 us External Provider IMG POINT OF CARE ULTRASOUND E dited Result - Final * (ABNORMAL) Iron & Total Iron Binding Capacity, Plasma (Includes Transferrin) (04/29/2025 3:04 AM EDT) Iron, Plasma 36(L) 50 - 170 ug/dL 04/29/2025 3:55 AM EDT [facility] Transferrin, Plasma 197(L) 200 - 360 mg/dL 04/29/2025 3:55 AM EDT [facility] Total Iron Binding Capacity, Plasma 246 240 - 450 ug/mL 04/29/2025 3:55 AM EDT [facility] Transferrin Saturation 15 14 - 50 % 04/29/2025 3:[address] [facility] Blood Venous blood specimen / Unknown Venipuncture / Unknown 04/29/2025 3:04 AM EDT 04/29/2025 3:19 AM EDT Sy De La Fuente FARM MARKETER, DNP LAB BLOOD ORDERABLES Fin al Result [facility] [address] [place] [address] * TSH (04/29/2025 3:04 AM EDT) Thyroid Stimulating Hormone, Plasma 1.58 0.40 - 4.20 uIU/mL 04/29/2025 3:55 AM EDT [facility] Blood Venous blood specimen / Unknown Venipuncture / Unknown 04/29/2025 3:04 AM EDT 04/29/2025 3:19 AM EDT us Sy De La Fuente FARM MARKETER, DNP LAB BLOOD ORDERABLES Fin al Result Performing Organization Address City/[facility]/ZIP Co de Phone Number [facility] [address] [place] [address] * (ABNORMAL) Hemoglobin A1c (04/29/2025 3:04 AM EDT) Hemoglobin A1c 8.9(H) <5.7 % 04/29/2025 9:40 AM EDT [facility] Blood Venous blood specimen / Unknown Venipuncture / Unknown 04/29/2025 3:04 AM EDT 04/29/2025 3:19 AM EDT Narrative [facility] - 04/29/2025 9:40 AM EDT HA1C Interpretive Data: Diagnosis of Diabetes: Diabetic > or = 6.5% Pre-diabetic 5.7 to 6.4% Non-diabetic < or = 5.6% Glycemic Targets for Type I and Type II Diabetics: Non- Adults <7.0% Adults <6.0% Children and Adolescents <7.5% Source: [place] [employer]. Standards of medical care in diabetes,2017. Diabetes Care.2017:40 (suppl 1):S1-S135. us Sy Josafat Rastafarian FARM MARKETER, DNP LAB BLOOD ORDERABLES Fin al Result Performing Organization Address [facility] Co de Phone Number [facility] [address] [place] [address] * Folate (04/29/2025 3:04 AM EDT) Folate, Serum 10.5 >4.6 ng/mL 04/29/2025 4:05 AM EDT [facility] Blood Venous blood specimen / Unknown Venipuncture / Unknown 04/29/2025 3:04 AM EDT 04/29/2025 3:20 AM EDT us Dirk A Rastafarian FARM MARKETER, DNP LAB BLOOD ORDERABLES Fin al Result Performing Organization Address City/[facility]/ZIP Co de Phone Number [facility] [address] [place] [address] * Ferritin (04/29/2025 3:04 AM EDT) Ferritin, Serum 40 20 - 400 ng/mL 04/29/2025 4:06 AM EDT [facility] Blood Venous blood specimen / Unknown Venipuncture / Unknown 04/29/2025 3:04 AM EDT 04/29/2025 3:20 AM EDT us Sy De La Fuente APRN, DNP LAB BLOOD ORDERABLES Fin al Result Performing Organization Address City/[facility]/ZIP Co de Phone Number [facility] [address] [place] [address] * Vitamin B12 (04/29/2025 3:04 AM EDT) Pathologist [facility] Vitamin B12, Serum 338 210 - 1,033 pg/mL 04/29/2025 4:[address] [facility] Blood Venous blood specimen / Unknown Venipuncture / Unknown 04/29/2025 3:04 AM EDT 04/29/2025 3:20 AM EDT us Sy De La Fuente APRN, DENISE LAB BLOOD ORDERABLES Fin al Result Performing Organization Address City/[facility] Co de Phone Number [facility] [address] [place] [address] * Cortisol (04/29/2025 3:04 AM EDT) [facility] Cortisol 2.80 Before 10am: 3.7 - 19.4. After 5pm: 2.9 - 17.3 ug/dL 04/29/2025 4:22 AM EDT [facility] Comment:Testing performed on Matt Airplane Designer, standardized against MCFP Reference Standard concentration values assigned by LC-MS/MS and verified by BCR 192 and BCR 193 certified reference materials. Blood Venous blood specimen / Unknown Venipuncture / Unknown 04/29/2025 3:04 AM EDT 04/29/2025 3:19 AM EDT us Sy De La Fuente APRN, DENISE LAB REF LAB BLOOD AND FL UID ORD Final Result [facility] [address] [place] [id number] * VAS Ankle Brachial Index - GABBI [...] are demonstrated at the levels of the SECURITIES COMPLIANCE EXAMINER and DPA. Segmental pressures are within normal limits with a SECURITIES COMPLIANCE EXAMINER GABBI of 1.1 (172 mmHg) and a DPA GABBI of 1.0 (149 mmHg). Digit pressures are of 122 mmHg. Left: Multiphasic waveforms are demonstrated at the levels of the SECURITIES COMPLIANCE EXAMINER and DPA. Segmental pressures are within normal limits with a SECURITIES COMPLIANCE EXAMINER GABBI of 1.1 (164 mmHg) and a DPA GABBI of 1.0 (153 mmHg). Digit pressures are of 151 mmHg. Procedure Note Chris Schaefer MD - 04/28/2025 CLINICAL INDICATION: Diabetic foot ulcer TECHNIQUE: Non-invasive, continuous wave Doppler exam with segmental pressures andspectral analysis of the lower extremity was performed. COMPARISON: None. FINDINGS: Right: Multiphasic waveforms are demonstrated at the levels of the SECURITIES COMPLIANCE EXAMINER andDPA. Segmental pressures are within normal limits with a SECURITIES COMPLIANCE EXAMINER GABBI of 1.1(172 mmHg) and a DPA GABBI of 1.0 (149 mmHg). Digit pressures are of 122mmHg. Left: Multiphasic waveforms are demonstrated at the levels of the SECURITIES COMPLIANCE EXAMINER andDPA. Segmental pressures are within normal limits with a SECURITIES COMPLIANCE EXAMINER GABBI of 1.1(164 mmHg) and a DPA [...] on04/28/2025 4:14 PM Sy De La Fuente FARM MARKETER, DNP CV VASCULAR PROCEDURES F inal Result * Multi Drug Resistance Test (04/28/2025 1:44 PM EDT) Culture No Multi Drug Resistant Organisms Isolated 04/29/2025 2:32 PM EDT [facility] Swab (Nares and Saba Rectal) Non-blood Collection / Unknown 04/28/2025 1:44 PM EDT 04/28/2025 2:15 PM EDT Narrative [facility] - 04/29/2025 2:32 PM EDT This test was developed and its performance characteristics determined by the [facility]. Although the media is FDA-approved, it is not FDA-approved for all specimen types submitted. The FDA has determined that such clearance or approval is not necessary. This test is used for surveillance purposes. It should not be regarded as investigational or for research. The [facility] is certified under the Clinical Laboratory Improvement Amendments of 1988 (CLIA-88) as qualified to perform high complexity clinical laboratory testing. us Sy De La Fuente APRN, DENISE LAB MICROBIOLOGY - GENER AL ORDERABLES Final Result Performing Organization Address [facility] Co de Phone Number [facility] [address] [place] [address] * Lavender Top (04/28/2025 8:13 AM EDT) Extra Hold for add-ons 04/28/2025 11:01 AM EDT [facility] Comment:Auto resulted. Blood Venous blood specimen / Unknown 04/28/2025 8:13 AM EDT 04/28/2025 8:19 AM EDT us Marjorie Myers MD LAB BLOOD ORDERABLES Final Resul t Performing Organization Address [facility] Phone Number [facility] [address] [place] [address] * Light Green Top (04/28/2025 8:13 AM EDT) Extra Hold for add-ons 04/28/2025 11:01 AM EDT [facility] Comment:Auto resulted. Blood Venous blood specimen / Unknown 04/28/2025 8:13 AM EDT 04/28/2025 8:19 AM EDT us Marjorie Myers MD LAB BLOOD ORDERABLES Final Resul t Performing Organization Address [facility] de Phone Number [facility] [address] [place] [address] * APTT (04/28/2025 8:13 AM EDT) aPTT 32 25 - 35 sec 04/28/2025 8:33 AM EDT [facility] Blood Venous blood specimen / Unknown Venipuncture / Unknown 04/28/2025 8:13 AM EDT 04/28/2025 8:18 AM EDT us Sy De La Fuente APRN, DENISE LAB BLOOD ORDERABLES Fin al Result Performing Organization Address City/[facility] Co de Phone Number [facility] [address] [place] [address] * (ABNORMAL) PT/INR (04/28/2025 8:13 AM EDT) Prothrombin Time 17.5(H) 12.0 - 14.3 sec 04/28/2025 8:33 AM EDT [facility] INR 1.4(H) 0.9 - 1.1 04/28/2025 8:33 AM EDT [facility] Blood Venous blood specimen / Unknown Venipuncture / Unknown 04/28/2025 8:13 AM EDT 04/28/2025 8:18 AM EDT Narrative [facility] - 04/28/2025 8:33 AM [...] of recurrent [place] INR 2.5 to 3.5 us Sy De La Fuente FARM MARKETER, DNP LAB BLOOD ORDERABLES Fin al Result Performing Organization Address [facility]/State/ZIP Co de Phone Number [facility] [address] [place] [address] * CT Foot Right w IV Contrast [...] Per this written report. Drafted by Kim aBi MD on 04/27/2025 11:38 PM Final report [...] at day 5 05/03/2025 12:01 AM EDT [facility] Blood Venous blood specimen / Unknown Venipuncture / Unknown 04/27/2025 10:16 PM EDT 04/27/2025 10:53 PM EDT Jessa Law MD LAB MICROBIOLOGY - GENERAL [facility] Final Result [facility] [address] [place] [address] * (ABNORMAL) Blood gas, venous (04/27/2025 10:16 PM EDT) pH, Venous 7.47(H) 7.32 - 7.43 LAB HEMATOLOGY METHOD 04/27/2025 10:21 PM EDT [facility] pCO2, Venous 50 40 - 55 mmHg LAB HEMATOLOGY METHOD 04/27/2025 10:21 PM EDT [facility] pO2, Venous 30 25 - 40 mmHg LAB HEMATOLOGY METHOD 04/27/2025 10:21 PM EDT [facility] SO2, Measured, Venous 52(L) 65 - 80 % LAB HEMATOLOGY METHOD 04/27/2025 10:21 PM EDT [facility] Base Excess, Venous 11.6(H) -2.0 - 3.0 mmol/L LAB HEMATOLOGY METHOD 04/27/2025 10:21 PM EDT [facility] Bicarbonate, Calculated, Venous 37(H) 22 - 26 mmol/L LAB HEMATOLOGY METHOD 04/27/2025 10:21 PM EDT [facility] Hematocrit, Whole Blood 30.1(L) 40.0 - 51.0 % LAB HEMATOLOGY METHOD 04/27/2025 10:21 PM EDT [facility] Sodium, Whole Blood 136 136 - 145 mmol/L LAB HEMATOLOGY METHOD 04/27/2025 10:21 PM EDT [facility] Potassium, Whole Blood 2.8(L) 3.6 - 4.9 mmol/L LAB HEMATOLOGY METHOD 04/27/2025 10:21 PM EDT [facility] Chloride, Whole Blood 88(L) 97 - 107 mmol/L LAB HEMATOLOGY METHOD 04/27/2025 10:21 PM EDT [facility] Glucose, Whole Blood 131(H) 74 - 99 mg/dL LAB HEMATOLOGY METHOD 04/27/2025 10:21 PM EDT [facility] Lactate, Venous, Whole Blood 2.0 0.5 - 2.2 mmol/L LAB HEMATOLOGY METHOD 04/27/2025 10:21 PM EDT [facility] Ionized Calcium, Whole Blood 4.2(L) 4.6 - 5.1 mg/dL LAB HEMATOLOGY METHOD 04/27/2025 10:21 PM EDT [facility] Blood Venous blood specimen / Unknown Venipuncture / Unknown 04/27/2025 10:16 PM EDT 04/27/2025 10:20 PM EDT us Jessa Law MD LAB BLOOD ORDERABLES Final Resu lt [facility] [address] [place] [address] * ED HIV 1/2 Antibody/Antigen Screen w/Reflex to HIV 1/2 Differentiation (04/27/2025 9:37 PM EDT) HIV 1 & 2 Antibody/Antigen Screen Non Reactive Non Reactive 04/27/2025 10:41 PM EDT [facility] Comment:Screening for HIV 1 & 2 antibodies, and P24 antigen is NONREACTIVE. No confirmatory testing is required. Blood Venous blood specimen / Unknown Venipuncture / Unknown 04/27/2025 9:37 PM EDT 04/27/2025 10:00 PM EDT us Pool Jean MD LAB BLOOD ORDERABLES Final Res ult Performing Organization Address City/[facility]/ZIP Co de Phone Number [facility] [address] [place] [address] * Beta-Hydroxybutyric Acid (04/27/2025 9:37 PM EDT) Beta-Hydroxybut yric Acid, Plasma 0.23 <=0.27 mmol/L 04/27/2025 10:56 PM EDT [facility] Blood Venous blood specimen / Unknown Venipuncture / Unknown 04/27/2025 9:37 PM EDT 04/27/2025 9:40 PM EDT us Jessa Law MD LAB BLOOD ORDERABLES Final Resu lt Performing Organization Address [facility]/ZIP Co de Phone Number [facility] [address] [place] [address] * (ABNORMAL) Procalcitonin (04/27/2025 9:37 PM EDT) Procalcitonin, Plasma 0.11(H) <0.09 ng/mL 04/28/2025 8:36 AM EDT [facility] Blood Venous blood specimen / Unknown Venipuncture / Unknown 04/27/2025 9:37 PM EDT 04/27/2025 9:40 PM EDT Narrative [facility] - 04/28/2025 8:36 AM [...] predict 28 day mortality risk. Please consult [email or web address]-loe-[email or web address] for more information. Test performed at [facility]. us Sy De La Fuente APRN, DNP LAB BLOOD ORDERABLES Fin al Result Performing Organization Address City/[facility]/ZIP Co de Phone Number [facility] [address] [place] [address] * Hepatitis C Antibody - ED (04/27/2025 9:37 PM EDT) Hepatitis C Antibody Negative Negative 04/27/2025 10:41 PM EDT [facility] Blood Venous blood specimen / Unknown Venipuncture / Unknown 04/27/2025 9:37 PM EDT 04/27/2025 10:00 PM EDT us Pool Jean MD LAB BLOOD ORDERABLES Final Res ult Performing Organization Address [facility]/ZIP Co de Phone Number [facility] [address] [place] [address] * (ABNORMAL) Sed rate, automated (04/27/2025 9:37 PM EDT) Sedimentation Rate >111(H) <15 mm/hr 2024 11:10 PM EDT [facility] Blood Venous blood specimen / Unknown Venipuncture / Unknown 04/27/2025 9:37 PM EDT 04/27/2025 9:40 PM EDT us Jessa Law MD LAB BLOOD ORDERABLES Final Resu lt [facility] [address] [place] [address] * (ABNORMAL) C-reactive protein (04/27/2025 9:37 PM EDT) CRP, Plasma 82.6(H) <=8.0 mg/L 04/27/2025 10:03 PM EDT [facility] Blood Venous blood specimen / Unknown Venipuncture / Unknown 04/27/2025 9:37 PM EDT 04/27/2025 9:40 PM EDT Narrative [facility] - 04/27/2025 10:03 PM EDT This CRP test is appropriate for assessment of infection, systemic inflammation and/or tissue injury. To assess cardiovascular disease risk order high sensitivity CRP (CRPH). Pool Jean MD LAB BLOOD ORDERABLES Final Res ult Performing Organization Address [facility] Co de Phone Number [facility] [address] [place] [address] from Last 3 [place] [address] Advance Directives * Full Code (Latest Code [...] updated to appropriate status: Yes Care Teams Software Build Engineer Relationship Specialty Start Date End Date Malcolm Hayward APRN [address] [place] [id number] PCP - General 09/21/23
--- OUTSIDE RECORDS SUMMARY | 2025-05-31 16:51 | XMS_ITS | Encounter Summary ---
Author Organization [facility] Address [address] [id number] Care Team Providers Care Air Conditioning Installer Supervisor Name Role Phone Malcolm Hayward CONTRACT SERVICEMAN Primary Care Provider [phone] Reason for Visit * Reason Comments Med Refill Encounter Details Date Type Department Care Team (Late st Contact Info) Description 12/02/2024 Refill [facility] Endocrinology [address] [place] [address] Divine Archer, CONTRACT SERVICEMAN [phone] [facility] [address] [place] [address] Social History Tobacco Use Types [...] Description 06/12/2025 2:00 PM EST Office Visit [facility] [address] [facility] [address] Elaine Campbell PA [address] [facility] [address] [place] [address] 06/22/2025 1:40 PM EST Office Visit [facility] [address] [facility] [address] [place] [address] Mary Vicente MD [address] [facility] [address] [place] [address] 06/23/2025 8:00 AM EST Office Visit [facility] [address] [facility] [address] [place] [address] Sheila Marcano PA [address] [facility] [address] [place] [address] documented as of this encounter Visit Diagnoses [...] documented as of this encounter Care Teams Air Conditioning Installer Supervisor Relationship Specialty Start Date End Date Malcolm Hayward APRN [address] [place] [address] [place] [address] PCP - General 09/21/23 documented as of this encounter
--- NOTE | 2025-05-31 16:56 | XR_ITS ---
PROCEDURE INFORMATION: Exam: XR Chest Exam date and time: 05/31/2025 5:10 PM Age: 49 years old Clinical indication: Shortness of breath; Additional info: Short of breath TECHNIQUE: Imaging protocol: Radiologic exam of the chest. Views: 1 view. COMPARISON: CR XR CHEST PORTABLE 04/12/2025 12:58 PM FINDINGS: Lungs: Lung volumes are moderately to markedly diminished. Hazy perihilar and bibasilar opacities are present, likely accentuated by patient positioning and diminished lung volumes. These appear more prominent, however, when compared with 04/12/2025. No large focal areas of consolidation. Pleural spaces: Hazy appearance to the costophrenic angles may be due to patient positioning and body habitus but can not exclude small pleural effusions. No large pleural effusions. Negative for pneumothorax. Heart/Mediastinum: There is pulmonary vascular cephalization. The heart is borderline enlarged. Bones/joints: There is no evidence of acute fracture. Other findings: Study quality is limited due to lordotic positioning of the patient. IMPRESSION: 1. Study quality limited due to lordotic positioning and moderately diminished lung volumes. 2. Hazy perihilar and bibasilar opacities likely accentuated by patient positioning and diminished lung volumes. These appear more prominent, however, when compared with 04/12/2025. Cannot exclude low-grade edema or pneumonia in the appropriate clinical setting. Correlate clinically.
--- NOTE | 2025-05-31 17:10 | ED_ITS ---
<Statement entered by Saulo Negrete MD - 05/31/25 21:50> I was consulted by the POOJA, and we discussed the complexity of the problems being addressed. I approved the treatment and management plan for this patient's care in the emergency department, thus performing a substantive portion of the medical decision making. Saulo Negrete MD, TITI, FACEP Discharge Plan Disposition Chief Complaint: Shortness of Breath/Dyspnea Prescriptions Prescriptions: No Action (DME) insulin syringe-needle U-100 [BD Insulin Syringe Ultra-Fine] 1 mL 30 gauge x 1/2 syringe See Rx Instructions .ROUTE .MEDSUPPLY Qty: 10 Rx Instructions: As directed (DME) Dexcom G7 Sensor Device See Rx Instructions miscellaneous .MEDSUPPLY Qty: 1 0RF Rx Instructions: As directed (DME) Dexcom G7 Sensor Device See Rx Instructions .MEDSUPPLY Qty: 3 3RF Rx Instructions: Use 1 sensor for every 10 days (DME) Dexcom G7 Whale Trainer Misc See Rx Instructions miscellaneous .MEDSUPPLY Qty: 1 0RF Rx Instructions: As directed gabapentin 600 mg tablet 600 mg PO TID Qty: 90 2RF lorazepam 1 mg tablet 1 mg PO DAILYP PRN (Reason: anxiety) Qty: 15 2RF (DME) pen needle, diabetic [Comfort EZ Pen Hayward] 32 gauge x 5/32 needle See Rx Instructions .Route Qty: 100 0RF Rx Instructions: As directed diltiazem HCl 120 mg capsule,extended release 24hr 120 mg PO DAILY Qty: 90 3RF spironolactone [Aldactone] 100 mg tablet 100 mg PO DAILY Qty: 30 2RF tamsulosin [Flomax] 0.4 mg capsule 0.4 mg PO DAILY 90 Days Qty: 90 0RF nystatin-triamcinolone 100,000-0.1 unit/g-% cream 1 applic topical BID 30 Days Qty: 30 0RF atorvastatin 40 mg tablet 40 mg PO HS Qty: 90 1RF metformin 1,000 mg tablet 1,000 mg PO BID Qty: 60 5RF bumetanide 2 mg tablet 4 mg PO TID 30 Days Qty: 180 0RF hydrocodone-acetaminophen 10-325 mg tablet 1 tab PO TIDP PRN (Reason: Moderate Pain (Scale Score 5-6)) Qty: 90 0RF fluconazole 150 mg tablet 150 mg PO DAILY 3 Days Qty: 3 0RF Xarelto 20 mg tablet 20 mg PO QPMWITHMEAL Qty: 30 5RF venlafaxine 150 mg capsule,extended release 24hr 150 mg PO DAILY bisoprolol fumarate 5 mg tablet 5 mg PO BID Patient Comments: TAKE 1 TABLET BY MOUTH TWICE A DAY FOR BLOOD PRESSURE trazodone 100 mg tablet 100 mg PO HS Patient Comments: TAKE 1 TABLET AT BEDTIME Vraylar 3 mg capsule 3 mg PO DAILY Humulin R U-500 (Conc) Kwikpen 500 unit/mL (3 mL) insulin pen 175 unit SQ HS Patient Comments: INJECT 225 UNITS TWICE DAILY BEFORE BREAKFAST AND BEFORE DINNER omeprazole 40 mg capsule,delayed release(DR/EC) 40 mg PO DAILY Humulin R U-500 (Conc) Kwikpen 500 unit/mL (3 mL) insulin pen 200 unit SQ AM ondansetron 8 mg tablet,disintegrating 8 mg PO BIDP PRN (Reason: Nausea And Vomiting) doxycycline hyclate 100 mg tablet 100 mg PO BID Qty: 14 0RF levofloxacin 750 mg tablet 750 mg PO DAILY Qty: 7 0RF Referrals Follow up/Referrals: Malcolm Hayward APRN [Primary Care Provider, Family Practice] - See instructions Clinical Impressions Clinical Impression: Obesity hypoventilation syndrome Print Language Print Language: Vincentian Discharge ED Provider: Saulo Negrete [facility] General Chief Complaint: Shortness of Breath/Dyspnea Stated Complaint: SOB Time Seen by Provider: 05/31/25 16:40 Mode of Arrival: EMS Source of Information: Patient and EMS Description of Symptoms (Recalled from ER Triage Doc. by RN): PATIENT PRESENTS TO ED FROM HOME WITH EMS FOR SHORTNESS OF BREATH ON EXERTION. PT REPORTS HE HAD SURGERY LAST WEEK AND HAS BEEN LYING IN A HOSPITAL BED AT HOME RECOVERING. NOTICED SOA ON EXERTION YESTERDAY. History of Present Illness HPI narrative: 49-year-old male presents to the ED via EMS for shortness of breath with exertion. He reports he had surgery last week and has been unable to get up without extreme shortness of breath. He does have A-fib. When he moves or stands his heart rate goes up to 100. Dr. Wallis did a culture on his right foot and the culture grew out bacteria that needs IV antibiotics. This has not been treated yet at this point. Patient has not noticed any fevers or chills. He has had a catheter for a month or more. He sees Dr. Smith soon. He has had no nausea vomiting or diarrhea. Patient has just been having increased shortness of breath. Related Data Home Medications ?Medication ?Instructions ?Recorded ?Confirmed insulin syringe-needle U-100 1 mL #10 ea 02/18/2403/06 30 gauge x 1/2 (BD Insulin Syringe Ultra-Fine) bisoprolol fumarate 5 mg tablet 5 mg PO BID 12/08/24 1 07/20/24 trazodone 100 mg tablet 100 mg PO HS 12/08/24 venlafaxine 150 mg 150 mg PO DAILY 12/08/2403/06 capsule,extended release 24 hr cariprazine 3 mg capsule (Vraylar) 3 mg PO DAILY 02/2305/20/25 insulin regular hum U-500 conc 500 175 unit SQ HS 03/0605/20/25 unit/mL(3 mL) subcut pen (Humulin R U-500 (Conc) Insulin Kwikpen) insulin regular hum U-500 conc 500 200 unit SQ AM 03/0605/20/25 unit/mL(3 mL) subcut pen (Humulin R U-500 (Conc) Insulin Kwikpen) omeprazole 40 mg capsule,delayed 40 mg PO DAILY 05/20/25 release ondansetron 8 mg disintegrating 8 mg PO BIDP PRN Nause a And 05/21/25 05/21/25 tablet Vomiting Previous Rx's ?Medication ?Instructions ?Recorded pen needle, diabetic 32 gauge x #100 ea 09/16/23 (Comfort EZ Pen Hayward) diltiazem HCl 120 mg 120 mg PO DAILY #90 caps 07/05 capsule,extended release 24 hr nystatin-triamcinolone 100,000 1 applic topical BID 30 days #30 02/24/25 unit/g-0.1 % topical cream grams tamsulosin 0.4 mg capsule (Flomax) 0.4 mg PO DAILY 90 days #90 caps 02/24/25 spironolactone 100 mg tablet 100 mg PO DAILY #30 tabs 02/27/25 (Aldactone) atorvastatin 40 mg tablet 40 mg PO HS #90 tabs 5 blood-glucose sensor (Dexcom G7 #1 ea 03/21/25 Sensor device) blood-glucose sensor (Dexcom G7 #3 ea 03/21/25 Sensor device) blood-glucose,womens health nurse practitioner,cont #1 ea 03/21/25 (Dexcom G7 Whale Trainer) gabapentin 600 mg tablet 600 mg PO TID #90 tabs 03/28 lorazepam 1 mg tablet 1 mg PO DAILYP PRN anxiety # 15 tabs 03/28/25 bumetanide 2 mg tablet 4 mg (2 x 2 mg) PO TID 30 da ys 04/24/25 #180 tabs metformin 1,000 mg tablet 1,000 mg PO BID #60 tabs doxycycline hyclate 100 mg tablet 100 mg PO BID #14 ta bs 05/24/25 levofloxacin 750 mg tablet 750 mg PO DAILY #7 tabs 07/06 hydrocodone 10 mg-acetaminophen 1 tab PO TIDP PRN Mode rate Pain 05/25/25 325 mg tablet (Scale Score 5-6) #90 tabs fluconazole 150 mg tablet 150 mg PO DAILY 3 days #3 ta bs 05/29/25 rivaroxaban 20 mg tablet (Xarelto) 20 mg PO QPMWITHMEA L #30 tabs 05/29/25 Allergies Allergy/AdvReac Type Severity Reaction Status Date / Time vancomycin AdvReac Severe Redness of Verified 04/06/25 10:28 Skin clindamycin AdvReac Mild Nausea Verified 04/06/25 10:28 doxycycline AdvReac Mild Upset Verified 04/06/25 10:28 stomach, heartbur PFSH PFSH Disclaimer: The information contained in this section may have been updated after the patient was seen, as this information can be updated by other users. 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 Tachycardia Bilateral knee pain DDD (degenerative disc disease), lumbar Depression Morbid obesity with body mass index of 70 and over in adult CHF (congestive heart failure) COPD (chronic obstructive pulmonary disease) Diabetes Dyspnea BMI 60.0-69.9, adult Obesity Anxiety disorder Hypertension Diabetes type 2, uncontrolled Surgical History S/P gastric sleeve procedure History of gastric bypass Family History Father Cancer Other No significant family history Social History Smoking Status: Never smoker alcohol intake: former year quit: 2021 counseling given: Yes counseling provided: provider counseling substance use type: denies use current occupational status: unemployed and disabled Travel in the last 8 weeks?: None household members: spouse and children housing: house marital status: number of children: 1 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 current occupational exposures/hazards: No pets and animals: Yes pets and animals: cat(s) diet: other caffeine: Yes physical activity: none Have you lived/traveled outside US in past 30 days?: No Contact w/someone who lives/traveled outside US past 30 days?: No Exposure to someone with infectious disease in past 14 days?: No Do you have a fever (greater than 100.4 F or 38 C)?: No Have you tested positive for COVID-19?: No Exposed to someone with COVID-19 in past 14 days?: No Do you have a sore throat?: No Do you have a cough?: No Do you have any weakness?: No Do you have any diarrhea?: No Are you experiencing any unusual bleeding?: No Do you have any muscle aches/pain?: No Do you have any abdominal pain?: No Are you experiencing loss of taste or smell?: No Other Medical History Have you received the Flu Vaccine for this season: No Have you received the Pneumonia Vaccine: No ROS Obtained: Yes Systems reviewed as appropriate & no additional complaints except as documented Constitutional Constitutional: Reports as per HPI Physical Exam General General appearance: alert and in distress Head Head exam: normocephalic Eye Eye exam: Present PERRL and EOMI ENT ENT exam: Present normal oropharynx and mucous membranes moist Neck Neck exam: Present full ROM and trachea midline Respiratory Respiratory exam: Present other (fluid) Cardiovascular Cardiovascular exam: Present regular rate, normal rhythm, normal heart sounds, +S1 and +S2 Abdominal Exam Abdominal exam: Present soft and normal bowel sounds Extremities Exam Extremities exam: Present full ROM and normal capillary refill Neurological Exam Neurological exam: Present alert and oriented X3 Skin Skin exam: Present warm and dry HEART Score HEART Score HEART Score assessment performed?: Yes History (anamnesis): Slightly suspicious ECG: Normal Age: 45-65 years Risk factors: 3 or more risk factors Troponin: </= normal limit HEART Score: 3 Critical Care Critical Care Time Critical Care Time: No Medical Decision Making Sy Inquiry Pt receiving controlled substance: No Sy was queried for this patient: No Vital Signs Vital Signs: 05/31/25 16:37 05/31/25 16:37 05/31/25 16:53 Temperature 98.2 F 98.2 F Temperature Source Oral Pulse Rate 73 Pulse Rate [Right] 73 Respiratory Rate 22 22 Blood Pressure 134/58 L Blood Pressure [Right Arm] 134/58 L Blood Pressure Mean Blood Pressure Mean [Right Arm] 83 02 Sat by Pulse Oximetry 98 98 98 Oxygen Delivery Method Room Air 05/31/25 17:00 05/31/25 17:30 05/31/25 18:00 Temperature Temperature Source Pulse Rate 75 68 65 Pulse Rate [Right] Respiratory Rate 12 13 15 Blood Pressure 117/66 123/64 115/71 Blood Pressure [Right Arm] Blood Pressure Mean Blood Pressure Mean [Right Arm] 02 Sat by Pulse Oximetry 97 94 L 98 Oxygen Delivery Method Room Air Room Air 05/31/25 18:30 Temperature Temperature Source Pulse Rate Pulse Rate [Right] Respiratory Rate Blood Pressure 124/74 Blood Pressure [Right Arm] Blood Pressure Mean 83 Blood Pressure Mean [Right Arm] 02 Sat by Pulse Oximetry Oxygen Delivery Method Lab Data Labs: Lab Results 05/31/25 16:20: WBC 7.3, RBC 4.27 L, Hgb 9.5 L, Hct 32.0 L, MCV 74.9 L, MCH 22.2 L, MCHC 29.7 L, RDW 17.7 H, Plt Count 196, MPV 10.0, Neut % (Auto) 72.4, Lymph % (Auto) 16.0, Clinch % (Auto) 7.8, Eos % (Auto) 3.0, Baso % (Auto) 0.5, Neut # (Auto) 5.3, Lymph # (Auto) 1.2, Clinch # (Auto) 0.6, Eos # (Auto) 0.2, Baso # (Auto) 0.0, PT 13.0 H, INR 1.19 H, APTT 29.5, D-Dimer 0.76 H, Sodium 128 L, Potassium 3.5, Chloride 86 L, Carbon Dioxide 34 H, Anion Gap 11.5, BUN 13, Creatinine 0.80, Estimated Creat Clear 125, Estimated GFR 104, Est GFR ( Amer) 125, Glucose 123 H, Calcium 8.9, Magnesium 1.3 L, Total Bilirubin 0.8, AST 39, ALT 23, Alkaline Phosphatase 54, Troponin I < 0.01, Total Protein 7.9, Albumin 4.2, Globulin 3.7 H, Albumin/Globulin Ratio 1.1, Lipase 86 05/31/25 16:20 05/31/25 16:20 Response Orders (Tests/Meds): ED MEDICATIONS Discontinued Medications Generic Name Dose Route Start Last Admin Trade Name Freq PRN Reason Stop Dose Admin Magnesium Sulfate 2 gm in 50 mls @ 50 mls/hr 05/31/25 16:56 05/31/25 18:36 Magnesium Sulfate 2gm/50ml Premix IV 05/31/25 17:55 Infused ONCE ONE Infusion ORDERS Category Date Time Status Chest XR -- portable [XR chest portable] Stat Exams 05/31/25 16:56 Completed BNP [NT Pro Brain Natriuretic Pep.] Stat Lab 05/31/25 16:20 Received CBC [Complete Blood Count Auto Diff] Stat Lab 05/31/25 16:20 Completed Comprehensive Metabolic Panel Stat Lab 05/31/25 16:20 Completed D-Dimer Stat Lab 05/31/25 16:20 Completed Lipase Stat Lab 05/31/25 16:20 Completed Magnesium Stat Lab 05/31/25 16:20 Completed PT INR [Prothrombin Time INR] Stat Lab 05/31/25 16:20 Completed PTT [Activated Partial Thrombo Time] Stat Lab 05/31/25 16:20 Completed Rapid PCR Covid and Flu A/B Stat Lab 05/31/25 18:29 Received Trop I [Troponin I] Stat Lab 05/31/25 16:20 Completed Troponin I Q3H Lab 05/31/25 20:00 Ordered Troponin I Q3H Lab 05/31/25 23:00 Ordered MDM Narrative Medical Decision Narrative: patient is a 49-year-old male presenting to the emergency department for evaluation of shortness of breath with exertion. Patient is hemodynamically stable and nontoxic-appearing upon arrival, afebrile. Differential diagnosis includes CHF exacerbation, sepsis, COPD, among others. Workup will be conducted with hematologic labs, specific imaging, provocative tests. Initial inventions include analgesics, antibiotics. Patient's labsWhite count was 7.3, hemoglobin is 9.5 and hematocrit was 32 which are about the same as they were the last time patient was here. Dimer was 0.76 which with years criteria patient likelihood of VTE is unlikely. Patient's magnesium was 1.3 today which was replaced with magnesium here in the ED troponin was less than 0.01. Patient's chest x-ray shows hazy perihilar and bibasilar opacities which cannot exclude low-grade edema or pneumonia in the appropriate's setting however patient appears to have more of a CHF exacerbation here in the ED. Patient does take Bumex 4 mg 3 times a day and spironolactone as well. Patient and I discussed this and he does not want to be admitted to [place] as we discussed for his wound to see Dr. Álvarez. states that she has talked to them already and they were supposed to call tomorrow. Admission was offered but they do not want to come in.
[2025-05-31] MEDS: MAGNESIUM SULFATE IN WATER 2 GM/50 ML PIGGYBACK IV (17:20)
[2025-05-31 17:46] LABS: Hematocrit 32.0 % (42.0-52.0); Hemoglobin 9.5 g/dL (14.1-18.0); Immature Granulocytes % 0.3 %; Mean Corpuscular HGB Conc 29.7 g/dL (31.8-35.4); Mean Corpuscular Hemoglobin 22.2 pg (27.0-31.2); Mean Corpuscular Volume 74.9 fl (80-94); Nucleated Red Blood Cells % 0 %; Platelet Count 196 K/mm3 (142-424); Red Blood Count 4.27 M/mm3 (4.60-6.20); Red Cell Distribution Width-SD 48.3 fL; White Blood Count 7.3 K/mm3 (4.8-10.8)
[2025-05-31 17:51] LABS: Alanine Aminotransferase 23 U/L (12-78); Albumin Level 4.2 g/dl (3.5-5.0); Alkaline Phosphatase 54 U/L (38-126); Anion Gap 11.5 mEq/L (5-15); Aspartate Amino Transferase 39 U/L (17-59); Bilirubin,Total 0.8 mg/dl (0.2-1.3); Blood Urea Nitrogen 13 mg/dl (9-20); Calcium 8.9 mg/dl (8.4-10.2); Carbon Dioxide 34 mmol/L (22.0-30.0); Chloride 86 mmol/L (98-107); Creatinine Clearance Estimated 125 mL/min (50-200); Creatinine,Serum 0.80 mg/dl (0.66-1.25); Estimated Glomerular Filt Rate 104 ml/min (>60); GFR (African American) 125 ML/MIN (>60); Glucose 123 mg/dl (74-100); Lipase 86 U/L (23-300); Magnesium 1.3 mg/dl (1.6-2.3); Potassium 3.5 mmoL/L (3.5-5.1); Sodium 128 mmol/L (136-145)
[2025-05-31 17:54] LABS: Activated Partial Thrombo Time 29.5 seconds (22.8-30.6); INR 1.19 (0.9-1.1); Prothrombin Time 13.0 seconds (10.1-12.5)
[2025-05-31 18:06] LABS: Troponin I < 0.01 ng/ml (0.00-0.034)
[2025-05-31 18:09] LABS: D-Dimer 0.76 ug/mL (0.0-0.5)
[2025-05-31 18:17] LABS: Albumin/Globulin Ratio 1.1 (1.1-1.8); Globulin 3.7 g/dL (1.3-3.2); Total Protein,Serum 7.9 g/dl (6.3-8.2)
[2025-05-31 18:33] LABS: Coronavirus 19, PCR Not Detected (NotDetected); Influenza A, PCR Not Detected (NotDetected); Influenza B, PCR Not Detected (NotDetected)
[2025-05-31 19:06] LABS: NT Pro Brain Natriuretic Pep. 116 pg/mL (0-125)
== END 2025-05-31 19:18 | disposition home or self-care (01) ==
PROVIDERS: Nurse Practitioner; Emergency Provider Student in an Organized Health Care Education/Training Program; PCP Nurse Practitioner Family
DX: E66.2 Morbid (severe) obesity with alveolar hypoventilation (principal); R06.02 Shortness of breath; E87.1 Hypo-osmolality and hyponatremia; E83.42 Hypomagnesemia; E87.70 Fluid overload, unspecified; I11.0 Hypertensive heart disease with heart failure; I50.33 Acute on chronic diastolic (congestive) heart failure; Z87.891 Personal history of nicotine dependence
CPT/HCPCS: 71045; 80053; 83690; 83735; 83880; 84484; 85025; 85378; 85610; 85730; 87636; 93005; 96365; 99285; J3475

== ENCOUNTER 2025-06-12 10:27 | Outpatient (CLI) | payer MEDICARE, BC, SELFPAY ==
--- OUTSIDE RECORDS SUMMARY | 2025-04-27 20:29 | XMS_ITS | Encounter Summary ---
Author Organization [facility] Address [address] [place] [address] Care Team Providers Care Compugraph Operator Name Role Phone Malcolm Hayward APRN Primary Care Provider [phone] Reason for Referral * Consultation (Routine) - Authorized Specialty Diagnoses / Procedures Referred By Contac t Referred To Contact Endocrinology Diagnoses Uncontrolled type 2 diabetes mellitus with hyperglycemia, with long-term current use of insulin Type 2 diabetes mellitus with diabetic peripheral angiopathy without gangrene, with long-term current use of insulin Martina Foote PA [address] [place] [address] Phone: tel: fax: Referral ID Status Reason Start Date Expiration Date Visits Requested Visits Authorized [id number] Authorized Specialty Services Required 5 11/04/2026 1 1 * Consultation (Routine) - Authorized Specialty Diagnoses / Procedures Referred By Contact Referred To Contact Vascular Surgery / [facility] Diagnoses Diabetic foot ulcer with osteomyelitis Diane Guzman MD [address] [place] [address] Phone: tel:[phone] fax:[phone] [place] [facility] [address] [facility] [address] [place] [address] Phone: tel: fax: Referral ID Status Reason Start Date Expiration Date Visits Requested Visits Authorized [id number] Authorized Specialty Services Required 5 11/02/2026 1 1 Reason for Visit * Reason Comments Wound Check * Auth/Cert (Routine) Specialty Diagnoses / Procedures Referred By Anish t Referred To Contact Diagnoses Diabetic foot ulcer with osteomyelitis Greg Lee MD [address] [place] [address] Phone: tel: fax: [facility] Emergency Department [address] [place] [address] Phone: tel: Referral ID Status Reason Start Date Expiration Date Visits Re quested Visits Authorized [id number] 1 1 Encounter Details Date Type Department Care Team (Latest Contact Info) Description 04/27/2025 9:29 PM EDT - 05/18/2025 11:48 AM EST Hospital Encounter [facility] Inpatient [address] [place] [address] Jessa Law MD [address] [place] [address] Man Garcia, DO [address] [place] [address] Greg Lee MD [address] [place] [address] Marjorie Myers MD [address] [place] [address] Diane Guzman MD [address] [place] [address] Selin Lee MD [address] [place] [address] Wily Goyal, DO [address] [place] [address] Other chronic osteomyelitis of right foot (CMS/HCC) (Primary Dx); Diabetic foot ulcer with osteomyelitis; Uncontrolled type 2 diabetes mellitus with hyperglycemia, with long-term current use of insulin; Type 2 diabetes mellitus with diabetic peripheral angiopathy without gangrene, with long-term current use of insulin Discharge Disposition: Half-Way Facility Social History Tobacco Use Types Packs/Day [...] time in the past [address] [facility], were you homeless or living in a usp (including now)? No 04/28/2025 [facility] Utilities Answer Date Recorded In the past 12 months has [employer] electric, gas, oil, or water company threatened [...] 5 tablet 05/17/2025 Insulin Pen Needle (Pen Manassa) 31G X 5 MM misc USE TO [...] capsule by mouth daily. 05/10/2018 HYDROcodone-acetami nophen (Gresham) 10-325 MG tablet Take 1 tablet by [...] provided Taken 05/17/2025 2228 by Ivan Slaughter RNfaculty research assistant Interventions: medication (see MAR) Goal: Optimal Wound [...] Ongoing, Progressing Intervention: Promote Activity and Functional [place] Flowsheets Taken 05/18/2025 1131 by Kylee Gonzalez [...] PCP name and Address: Malcolm Hayward APRN [address] [place] [address] / [place] [address] Brief History of Present Illness 49 M [...] extremity. He was accepted for discharge to [facility] rehab facility. Urinary Retention and Recurrent [...] He was medically stable for discharge to [facility] rehab facility, with recommendations for close [...] HYDROcodone-acetaminophen 10-325 MG tablet Commonly known as: Gresham Take 1 tablet by mouth every 6 [...] the skin 1 time per week. Pen [place]assa 31G X 5 MM mis USE TO [...] Your Medications These medications were sent [place] [facility] [place] [address] gabapentin 600 MG tablet HYDROcodone-acetaminophen 10-325 MG tablet insulin regular 100 UNIT/ML injection vial insulin regular 500 UNIT/ML CONCENTRATED injection vial Information about where to get these medications is not yet available Ask your nurse or doctor about these medications ferrous sulfate 324 MG tablet delayed-release Discharge Diagnosis Medical Problems Active and Resolved Hospital Problems Hospital Morbid obesity ([facility]) Hypertension Type 2 diabetes Overview Signed 04/14/2022 [...] 05/30/2025 2:40 PM Sheila Marcano PA COMPVASCHKYC [facility] 06/14/2025 1:40 PM Divine Archer, COUPON AND BOND COLLECTION CLERK ENDOTFBNBR [facility] 06/22/2025 1:40 PM Mary Vicente MD [facility] Pertinent Physical Exam At Time of Discharge [...] Note Gonzalo Smalls 49 y.o. male CSN: [id number] Admission: 04/27/2025 9:29 PM Primary Problem: Diabetic foot ulcer Primary Fruit Pitter: Primary Caregiver: Self Assistance Available at Discharge: Availability of Care Givers (#Hours): 24 hours Housing Circumstances-Z Codes: Housing Circumstances (select all that apply): Low Income (101-300% Federal Poverty Guidlines) - Z596 Discharge Facility/Level of Care Needs: Discharge Facility/Level of Care Needs: 62-Rehab facilty ([place]) Patient's Choice of Community Agency(s): Patient's Choice of Community Agency(s): [facility] Patient/Family Anticipated Services at Transition: Patient/Family [...] Recieved By: Gonzalo Smalls- the patient Follow-up: [facility] [address] [facility] [address] Primary care provider (PCP) Malcolm Hayward, COUPON AND BOND COLLECTION CLERK [address] [place] [place] [address] Discharge Transportation: Transportation Anticipated: medical transport Transportation [...] Araceli in admission who confirmed pt's acceptance #[phone]. Pt updated and in agreement with d/c plan. Team and bedside RN updated. Bedside RN to call report to #[phone]. Araceli has access to [employer] and will get d/c s [facility] way. Script for controlled medication to be sent to [facility] [place]. Ambulance to transport the pt is [...] Mobility Bed Mobility Exam: Scooting/Bridging Level of [place]: Contact guard Physical/Nonphysical Assist: Verbal Cues, Minimal cues Assistive Device: Overhead trapeze Bed Mobility Exam: Supine to Sit Level of [place]: Minimum assist (75% patient's effort) Physical/Nonphysical Assist: HOB elevated, Verbal Cues, Minimal cues Assistive Device: Overhead trapeze Bed Mobility Exam: Sit to Supine Level of [place]: Stand-by assist Physical/Nonphysical Assist: Verbal Cues, Minimal cues Assistive Device: Overhead trapeze Transfers Transfer Exam: Sit to stand Level of [place]: Maximum assist (25% patient's effort) Physical/Nonphysical Assist: Verbal Cues, Nonverbal cues (demo/gestures), Additional assist utilized for safety, Set-up required, Minimal cues Assistive Device: Walker, rolling (bariatric) Transfer Exam: Stand to Sit Level of [place]: Maximum assist (25% patient's effort) Physical/Nonphysical Assist: [...] help from Spouse Level of Mobility Mobility [place] Independent gait with device History of Falls [...] go, I'm just nervous. Visitors Present No Registered Nurse Cardiac (if applicable) Registered Nurse Cardiac: Not Applicable OBJECTIVE PAIN Pt was without c/o pain at the beginning of this session and throughout the PT treatment. Prior to TELLER SUPERVISOR's departure: * rest was provided * patient [...] by this therapist: BED MOBILITY Level of [place] Physical/Non- physical Assist Adaptive Equipment Utilized Rolling/ Turning Contact guard Verbal Cues, Set-up required, Minimal cues Bed rails, Other (EMAIL PRODUCTION SPECIALIST) Scooting/ Bridging Contact guard Verbal Cues, Minimal [...] breaks between standing trials. TRANSFERS Level of [place] Physical/Non- physical Assist Adaptive Equipment Utilized Sit [...] placement, sequencing, weight shifting, appropriate use of EMAIL PRODUCTION SPECIALIST, and maintaining NWB on RLE. Tactile cues provided to assist in sequencing and weight shifting. AMBULATION Level of [place] Distance Adaptive Equipment Utilized Ambulation N/A N/A N/A Comments Unable to side step or progress to forward hop step at bariatric RW level due to inabilityto maintain prolonged standing position while maintaining NWB in RLE. BALANCE Postural Appearance Posture: Within Functional Limits, Forward head Level of [place] Balance Support Activities Static Sit Standby assist [...] Abduction * Ankle pumps x1-2 sec holds TELLER SUPERVISOR provided minimal verbal and tactile cueing to [...] overall. Standardized Assessments Standardized Assessments Standardized Assessments: [facility] 6-Clicks Mobility Assessment [facility] 6-Clicks Mobility Assessment Difficulty patient has [...] climbing 3-5 steps with a railing?: Unable [facility] 6-Clicks Mobility Assessment Total : 11 PATIENT / FAMILY EDUCATION Patient was educated regarding the PT POC and recommendations regarding discharge planning, as wellas progressively increased time spent out of bed/up to chair, and continued mobilization / ambulation with nursing staff as tolerated to promote increased activity tolerance and Endurance. TELLER SUPERVISOR providing verbal cues/demonstration for pursed-lip breathing technique to promote improved ventilation, decreased respiratory rate and energy conservation with activity. TELLER SUPERVISOR stressed to patient the importance of having [...] has been following with urology outpatient at [facility]. They have postulated this to be [...] Ongoing, Progressing Intervention: Promote Activity and Functional [place] Flowsheets Taken 05/16/20251999 by Ivan Slaughter RN [...] type 2 DM [on U500 insulin], COPD, QIUNN on nightly oxygen, recurrent UTIs, BPH, morbid [...] -Diabetes education: completed 05/10 -Follow-up plan: home auto service representative - Dr Anette Kendall -Tentative discharge recommendations: -pt will need close monitoring by rehab facility provider as changes in diet and activity level maylead to changes in glycemic patterns and insulin requirement NOTE: -patient reports that once the new year hits, he worries about the cost of U500 insulin --> discussed cost through [employer] - should be able to get vials of U500 at $35 per vial. Also discussed contacting [employer] directly for the financial assistance program. -hopefully [...] team via secure chat or page us [phone] during 7a-7p, Thursday-Thursday. For after hours please [...] Ongoing, Progressing Intervention: Promote Activity and Functional [place] Flowsheets (Taken 05/16/2025 1949) Self-Care Promotion: independence encouraged * Progress Notes - Chayo Jennings RN - 05/16/2025 2:16 PM EST Case Management Adult Progress Note Goznalo Smalls 49 y.o. male CSN: [id number] Admission: 04/27/2025 9:29 PM Primary Problem: Diabetic foot ulcer Anticipated Discharge Date: 05/18/25 Pt is in a need for rehab placement and was referred and accepted by Merly Espinoza- LOLA CM spoke with Araceli in admission, ph#[phone] who confirmed pts acceptance. Pt updated and [...] Note Gonzalo Smalls 49 y.o. male CSN: [id number] This is a 49 y.o. male patient was admitted to [facility] with the diagnosis of Diabetic Foot [...] Hayward APRN, [facility] is Dr. Garvey in [place], [place]. Medication Education instructions given: The use [...] Prevention , pt reports he has a chief clinical officer as well Follow Ups: Provided with educational [...] has been following with urology outpatient at [facility]. They have postulated this to be [...] the video go to this web address: [email or web address] Or, scan this QR code with your [...] to gently smooth the nail. Have a chief clinical officer trim your nails if you can't see [...] remove corns, calluses, or warts by yourself. Nnfe-ibf-[id number] products can burn or damage your skin. [...] your primary care doctor or by a chief clinical officer. This is a doctor who specializes in foot care. Some diabetes centers have regular foot clinics. Last Reviewed Date: 2024 00:00:00 ?? [id number] [employer]. All rights reserved. This information is not intended as a substitute for professional medical care. Always follow your healthcare professional's instructions. * Ruy HoffmanMENG - Vivian Garcia RN - 05/16/2025 11:06 AM EST Images from the original note were not included. [id number] Inspecting Your Feet (Diabetes) [id number]: Last Reviewed Date: 2024 00:00:00 ?? [id number] [employer]. All rights reserved. This information is not [...] (H) 05/14/2025 I reviewed bg tracing in [facility] glucose timeline 05/16/25 ASSESSMENT Hospital Course: [...] mellitus - type 2 -Home medications: CGM: Storactive G7 Insulin regimen: U500 insulin: prescription for [...] -Diabetes education: completed 05/10 -Follow-up plan: home auto service representative - Anette Kendall -Tentative discharge recommendations: -pt will need close monitoring by rehab facility provider as changes in diet and activity level maylead to changes in glycemic patterns and insulin requirement NOTE: -patient reports that once the new year hits, he worries about the cost of U500 insulin --> discussed cost through [employer] - should be able to get vials of U500 at $35 per vial. Also discussed contacting [employer] directly for the financial assistance program. -patient with plans to discharge to [facility] once able - need to check with [facility] to see if they are okay with utilizing U500 insulin if patient is able to bring in his own supply Insulin regimen - would like patient to utilize U500 home dosing at [facility] Continue Dexcom G7 CGM Likely continue [...] team via secure chat orpage us at [phone] during -7p, Thursday-Thursday. For after hours please contact the on-call Endocrine Fellow. Thank you for the opportunity to participate in this patient's care. - Reviewed notes by primary team and consulting services to determine appropriate plan of care as in the note. - Discussed plan and management with patient and family living educator Time Spent: I personally spent a [...] Note Gonzalo Smalls 49 y.o. male CSN: [id number] Room/Bed 117/117A Nutrition evaluation type: follow-up Reason [...] Weight Evaluation: Extreme Obesity (BMI > 40) [place] Body Weight (kg): 80.9 Percent [place] Body Weight: 311 Adjusted Body Weight (kg): [...] Regular Adult Carbohydrate Restriction: Consistent CHO 2 (5985-2469 Steven, 80 g/meal) Adult Sodium Restriction: 2,000 mg Na Percent Meals Eaten (%): 75-100% of meals Diet Experience and Nutrition History: Diet Education Provided: Will monitor Pertinent home medications: Albuterol, Bumex, Insulin, Metformin, Ozempic, Aldactone Anabaptism needs: Nutrition Focused Physical Exam: Physical exam [...] Anxiety disorder, unspecified Anxiety Arthritis Atrial fibrillation ([facility]) CAP (community acquired pneumonia) 05/19/2024 Cellulitis 05/19/2024 [...] has been following with urology outpatient at [facility]. They have postulated this to be related to his diabetes and have had several voiding trials which have failed. Also has un dergone proctoscopy (?) which was normal. 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 and he [...] plan and management with patient. Selin Lee Client Insights Consultant Division of [facility] [...] Note Gonzalo Smalls 49 y.o. male CSN: [id number] Admission: 04/27/2025 9:29 PM Primary Problem: Diabetic foot ulcer Anticipated Discharge Date: TBD Pt was referred to many SNF in and out of [place]. Few SNF are considering accepting the pt along with [facility] Espinoza, ph#[phone]. RN [place] spoke with Araceli- admission at [facility]. Araceli is stating that she is checking if they can order lift needed for the pt and will call back. Team aware. LOLA TOVAR will continue to follow and assist as needed. Chayo Jennings RN * Progress Notes - Aileen Leonardo, COUPON AND BOND COLLECTION CLERK - 05/15/2025 8:25 AM EST Endocrine - [...] (H) 05/13/2025 I reviewed bg tracing in [facility] glucose timeline 05/15/25 ASSESSMENT Hospital Course: [...] -Diabetes education: completed 05/10 -Follow-up plan: home auto service representative - Anette Kendall -Tentative discharge recommendations: -pt will need close monitoring by rehab facility provider as changes in diet and activity level maylead to changes in glycemic patterns and insulin requirement NOTE: -patient reports that once the new year hits, he worries about the cost of U500 insulin --> discussed cost through [employer] - should be able to get vials of U500 at $35 per vial. Also discussed contacting [employer] directly for the financial assistance program. -patient with plans to discharge to [facility] once able - need to check with [facility] to see if they are okay with utilizing U500 insulin if patient is able to bring in his own supply Insulin regimen - would like patient to utilize U500 home dosing at [facility] Continue Dexcom G7 CGM Likely continue [...] team via secure chat orpage us at [phone] during 7a-7p, Thursday-Thursday. For after hours please [...] -Diabetes education: completed 05/10 -Follow-up plan: home auto service representative - Anette Kendall -Tentative discharge recommendations: -pt will need close monitoring by rehab facility provider as changes in diet and activity level maylead to changes in glycemic patterns and insulin requirement NOTE: -patient reports that once the new year hits, he worries about the cost of U500 insulin --> discussed cost through [employer] - should be able to get vials of U500 at $35 per vial. Also discussed contacting [employer] directly for the financial assistance program. -patient with plans to discharge to [facility] once able - need to check with [facility] to see if they are okay with utilizing U500 insulin if patient is able to bring in his own supply Insulin regimen - would like patient to utilize U500 home dosing at [facility] Continue Dexcom G7 CGM Likely continue [...] via secure chat or page us at [phone] during 7a-7p, Thursday-Thursday. For after hours please [...] Ongoing, Progressing Intervention: Promote Activity and Functional [place] Flowsheets Taken 05/14/2025 0946 Self-Care Promotion: independence encouraged BADL personal objects within reach BADL personal routines maintained meal set-up provided Taken 05/14/2025 0800 Activity Assistance Provided: assistance, stand-by assistance, 2 people Taken 05/13/2025 0931 Adaptive Equipment Use: used independently Problem: Self-Care Deficit Goal: Improved Ability to Complete Activities of Daily Living Outcome: Ongoing, Progressing Intervention: Promote Activity and Functional [place] Flowsheets Taken 05/14/2025 0946 Self-Care Promotion: independence [...] has been following with urology outpatient at [facility]. They have postulated this to be related to his diabetes and have had several voiding trials which have failed. Also has un dergone proctoscopy (?) which was normal. 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 and he [...] plan and management with patient. Selin Lee Client Insights Consultant Division [facility] [...] Goal: Optimal Comfort and Wellbeing 05/13/20252153 by Asyia Nix RN Outcome: Ongoing, Progressing 05/13/20252150 by [...] Note: Blood sugar monitored 05/13/20252150 by Asiya Nxi RN Outcome: [...] Ongoing, Progressing Intervention: Promote Activity and Functional [place] Flowsheets (Taken 05/13/20251999) Activity Assistance Provided: assistance, [...] -Diabetes education: completed 05/10 -Follow-up plan: home auto service representative - Anette Kendall -Tentative discharge recommendations: [...] at $35 per vial. Also discussed contacting [employer] directly for the financial assistance program. -patient with plans to discharge to [facility] once able - need to check with [facility] to see if they are okay with utilizing U500 insulin if patient is able to bring in his own supply Insulin regimen - would like patient to utilize U500 home dosing at [facility] Continue Dexcom G7 CGM Likely continue [...] via secure chat or page us at [phone] during 7a-7p, Thursday-Thursday. For after hours please [...] Ongoing, Progressing Intervention: Promote Activity and Functional [place] Flowsheets Taken 05/13/2025930 Adaptive Equipment Use: used [...] has been following with urology outpatient at [facility]. They have postulated this to be related to his diabetes and have had several voiding trials which have failed. Also has un dergone proctoscopy (?) which was normal. 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 and he [...] plan and management with patient. Selin Lee Client Insights Consultant Division of [facility] * Care Plan - Genaro Haritha Yehuda [...] Ongoing, Progressing Intervention: Promote Activity and Functional [place] Flowsheets (Taken 05/12/20252128) Activity Assistance Provided: assistance, 2 people Self-Care Promotion: independence encouraged BADL personal objects within reach BADL personal routines maintained meal set-up provided * Progress Notes - Max Alexander - 05/12/2025 4:32 PM EDT Case Management Adult Progress Note Gonzalo Smalls 49 y.o. male CSN: [id number] Admission: 04/27/2025 9:29 PM Primary Problem: Diabetic foot ulcer Anticipated Discharge Date: TBD Plan of care reviewed with pt's care team; and per MD, pt is medically ready for discharge pending placement. SW sent 145 Referral via [facility]. SW will continue to follow-up with pt's MD and care team on their progress and discharge plan. Max Alexander, CLIENT ADVISOR, NEUROLOGY PHYSICIAN Senior Per Diem Rn/Case Management [facility] * Progress Notes - Selin Lee [...] has been following with urology outpatient at [facility]. They have postulated this to be related to his diabetes and have had several voiding trials which have failed. Also has un dergone proctoscopy (?) which was normal. 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 and he [...] [facility] labs[facility]als[facility]. Current condition is [...] plan and management with patient. Selin Lee Client Insights Consultant Division of [facility] * Progress Notes - Lynda Choudhury, COUPON AND BOND COLLECTION CLERK - 05/12/2025 12:58 PM EDT Endocrine - [...] (H) 05/10/2025 I reviewed bg tracing in [facility] glucose timeline 05/12/25 ASSESSMENT Hospital Course: [...] mellitus - type 2 -Home medications: CGM: Storactive G7 Insulin regimen: U500 insulin: prescription for [...] -Diabetes education: completed 05/10 -Follow-up plan: home auto service representative - Anette Kendall -Tentative discharge recommendations: -pt will need close monitoring by rehab facility provider as changes in diet and activity level maylead to changes in glycemic patterns and insulin requirement NOTE: -patient reports that once the new year hits, he worries about the cost of U500 insulin --> discussed cost through [employer] - should be able to get vials of U500 at $35 per vial. Also discussed contacting [employer] directly for the financial assistance program. -patient with plans to discharge to [facility] once able - need to check with [facility] to see if they are okay with utilizing U500 insulin if patient is able to bring in his own supply Insulin regimen - would like patient to utilize U500 home dosing at [facility] Continue Dexcom G7 CGM Likely continue [...] via secure chat or page us at [phone] during 7a-7p, Thursday-Thursday. For after hours please [...] 1. Other chronic osteomyelitis of right foot ([facility]) 2. Diabetic foot ulcer with osteomyelitis 3. [...] remission, Anxiety disorder, unspecified, Arthritis, Atrial fibrillation ([facility]/HCC), CAP (community acquired pneumonia) (05/19/2024), Cellulitis [...] understanding. Participants in Care Family/Caregiver Present: No Registered Nurse Cardiac: Not Applicable Presentation Oxygen Therapy: Supplemental oxygen [...] of Function Receives Help From: Spouse Mobility [place]: Independent gait with device ADL Performance: Needs assistance Bathing: Needs assist Upper Body Dressing: Needs assist Lower Body Dressing: Needs assist Grooming: Needs assist Toileting: Independent Eating: Independent Home Management Skills: Needs assist Patient/Family Goals Return home at [facility] Objective Pain Pt reported 7/10 pain in [...] Mobility Bed Mobility Exam: Scooting/Bridging Level of [place]: Contact guard (scooting hips forward to edge of bed) Physical/Nonphysical Assist: Verbal Cues, Minimal cues Assistive Device: Overhead trapeze Bed Mobility Exam: Supine to Sit Level of [place]: Minimum assist (75% patient's effort) Physical/Nonphysical Assist: HOB elevated, Verbal Cues Assistive Device: Overhead trapeze Bed Mobility Exam: Sit to Supine Level of [place]: Stand-by assist Physical/Nonphysical Assist: Verbal Cues, Minimal cues Assistive Device: Overhead trapeze Transfers Transfer Exam: Sit to stand Level of [place]: Maximum assist (25% patient's effort) (x3 reps from edge of bed, good adherence to NWB RLE) Physical/Nonphysical Assist: Verbal Cues, Nonverbal cues (demo/gestures), Additional assist utilized for safety Assistive Device: Walker, rolling (bariatric) Transfer Exam: Stand to Sit Level of [place]: Maximum assist (25% patient's effort) Physical/Nonphysical Assist: [...] climbing 3-5 steps with a railing?: Unable [facility] 6-Clicks Mobility Assessment Total : 11 [...] session. Participants in Care Family/Caregiver Present: No Registered Nurse Cardiac: Not Applicable Presentation Oxygen Therapy: Supplemental oxygen [...] of Function Receives Help From: Spouse Mobility [place]: Independent gait with device ADL Performance: Needs [...] Mobility Bed Mobility Exam: Scooting/Bridging Level of [place]: Contact guard (scooting hips forward to edge of bed) Physical/Nonphysical Assist: Verbal Cues, Minimal cues Bed Mobility Exam: Supine to Sit Level of [place]: Minimum assist (75% patient's effort) Physical/Nonphysical Assist: HOB elevated, Verbal Cues Assistive Device: Overhead trapeze Bed Mobility Exam: Sit to Supine Level of [place]: Stand-by assist Physical/Nonphysical Assist: Verbal Cues, Minimal cues Assistive Device: Overhead trapeze Transfers Transfer Exam: Sit to stand Level of [place]: Maximum assist (25% patient's effort) (x3 reps from edge of bed, good adherence to NWB RLE) Physical/Nonphysical Assist: Verbal Cues, Nonverbal cues (demo/gestures), Additional assist utilized for safety Assistive Device: Walker, rolling (bariatric) Transfer Exam: Stand to Sit Level of [place]: Maximum assist (25% patient's effort) Physical/Nonphysical Assist: [...] upper extremity support, Left upper extremity support ([facility] RW) Static Standing-Level of Assistance: Maximum assistance [...] x3 reps of sit to stand to [facility] with max Ax2 persons each [...] Where Assessed: Other (Comment) (in stance at [facility] level) Toileting Interventions: Pt with small incontinent BM, required dep A for hygiene to buttocks in stance at [facility] level with assistance from 2nd [...] a helper. 5 Set-up or Clean-up Assistance [place] sets up or cleans up; patient completes activity. [place] assists only prior to or following the activity. 4 Supervision or touching assistance [place] provides verbal cues and/or touching/steadying and/or contact guard assistance as patient completes activity. Assistance may be provided throughout the activity or intermittently. 3 Partial/Moderate Assistance [place] does LESS THAN HALF the effort. [place] lifts, holds or supports trunk or limbs, but provides less than half the effort. 2 Substantial/Maximal Assistance [place] does MORE THAN HALF the effort. [place] lifts or holds trunkor limbs and provides more than half the effort. 1 Dependent [place] does ALL of the effort. Patient does [...] AM EDT Case Management Adult Progress Note Gonzaol Smalls 49 y.o. male CSN: [id number] Admission: 04/27/2025 9:29 PM Primary Problem: Diabetic foot ulcer Anticipated Discharge Date: TBD RN CM informed by bedside RN that pt's weight was obtained and current weight is 244.3kg (538.5 lbs)- due to pt being over 500 lbs [facility] is not able to accept the [...] Note Gonzalo Smalls 49 y.o. male CSN: [id number] Admission: 04/27/2025 9:29 PM Primary Problem: Diabetic foot ulcer Anticipated Discharge Date: TBD LOLA TOVAR f/ u with [facility]- admission at [facility]. 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 Also discussed contacting [employer] directly for the financial assistance program. -patient with plans to discharge to [facility] once able - need to check with [facility] to see if they are okay with utilizing U500 insulin if patient is able to bring in his own supply Insulin regimen - would like patient to utilize U500 home dosing at [facility] Continue Dexcom G7 CGM Likely continue [...] via secure chat or page us at [phone] during 7a-7p, Thursday-Thursday. For after hours please [...] has been following with urology outpatient at [facility]. They have postulated this to be related to his diabetes and have had several voiding trials which have failed. Also has un dergone proctoscopy (?) which was normal. 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 and he [...] plan and management with patient. Selin Lee Client Insights Consultant Division of [facility] * Care Plan - Haritha Lam Yehuda [...] Intervention: Promote Wound Healing Flowsheets (Taken 05/10/2025 5546) Sleep/Rest Enhancement: awakenings minimized consistent schedule promoted [...] has been following with urology outpatient at [facility]. They have postulated this to be related to his diabetes and have had several voiding trials which have failed. Also has un dergone proctoscopy (?) which was normal. 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 and he [...] [facility]. Current condition is [...] plan and management with patient. Selin Lee Client Insights Consultant Division of [facility] * Progress Notes - Chayo Jennings RN - 05/10/2025 8:59 AM EDT Case Management Adult Progress Note Gonzalo Smalls 49 y.o. male CSN: [id number] Admission: 04/27/2025 9:29 PM Primary Problem: Diabetic foot ulcer Anticipated Discharge Date: TBD LOLA CM f/u on [facility] referral and was told that [facility] physician declined pt's acceptance to [facility]. 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 Also discussed contacting [employer] directly for the financial assistance program. -patient with plans to discharge to [facility] once able - need to check with [facility] to see if they are okay with utilizing U500 insulin if patient is able to bring in his own supply Insulin regimen - would like patient to utilize U500 home dosing at [facility] Continue Dexcom G7 CGM Likely continue [...] team via secure chat orpage us at [phone] during 7a-7p, Thursday-Thursday. For after hours please [...] sit <> stand transfers Visitors Present none Registered Nurse Cardiac (if applicable) N/a OBJECTIVE PAIN Pt endorses [...] Mobility Bed Mobility Exam: Scooting/Bridging Level of [place]: Stand-by assist Physical/Nonphysical Assist: Verbal Cues, Minimal cues Assistive Device: Overhead trapeze Bed Mobility Exam: Supine to Sit Level of [place]: Stand-by assist Physical/Nonphysical Assist: Verbal Cues, Minimal cues, HOB elevated Assistive Device: Overhead trapeze Bed Mobility Exam: Sit to Supine Level of [place]: Stand-by assist Physical/Nonphysical Assist: Verbal Cues, Minimal cues Assistive Device: Overhead trapeze Transfers Transfer Exam: Sit to stand Level of [place]: Maximum assist (25% patient's effort) Physical/Nonphysical Assist: Set-up required, Additional assist utilized for safety, Maximal cues, Verbal Cues, Nonverbal cues (demo/gestures) Assistive Device: Hand held assist Transfer Exam: Stand to Sit Level of [place]: Maximum assist (25% patient's effort) Physical/Nonphysical Assist: [...] session Participants in Care Family/Caregiver Present: No Registered Nurse Cardiac: Not Applicable Presentation Oxygen Therapy: Supplemental oxygen [...] sequencing Bed Mobility Exam: Scooting/Bridging Level of [place]: Stand-by assist Physical/Nonphysical Assist: Verbal Cues, Minimal cues Assistive Device: Overhead trapeze Bed Mobility Exam: Supine to Sit Level of [place]: Stand-by assist Physical/Nonphysical Assist: Verbal Cues, Minimal cues, HOB elevated Assistive Device: Overhead trapeze Bed Mobility Exam: Sit to Supine Level of [place]: Stand-by assist Physical/Nonphysical Assist: Verbal Cues, Minimal [...] placement, sequencing, weight shifting, appropriate use of EMAIL PRODUCTION SPECIALIST, and maintaining NWB on LLE. Tactile cues provided to assist in sequencing and weight shifting. Transfer Exam: Sit to stand Level of [place]: Maximum assist (25% patient's effort) Physical/Nonphysical Assist: Set-up required, Additional assist utilized for safety, Maximal cues, Verbal Cues, Nonverbal cues (demo/gestures) Assistive Device: Hand held assist Transfer Exam: Stand to Sit Level of [place]: Maximum assist (25% patient's effort) Physical/Nonphysical Assist: [...] assistance Static Standing - Interventions: Standing w EMAIL PRODUCTION SPECIALIST Therapeutic Activity (40 minutes) See bed mobility, balance, and transfers sections for more detail. Standardized Assessments [facility] 6-Clicks Mobility Assessment Difficulty patient has [...] climbing 3-5 steps with a railing?: Unable [facility] 6-Clicks Mobility Assessment Total : 13 [...] Note Gonzalo Smalls 49 y.o. male CSN: [id number] Room/Bed 117/117A Nutrition evaluation type: follow-up Reason [...] Weight Evaluation: Extreme Obesity (BMI > 40) [place] Body Weight (kg): 80.9 Percent [place] Body Weight: 311 Adjusted Body Weight (kg): [...] Regular Adult Carbohydrate Restriction: Consistent CHO 2 ([id number] Steven, 80 g/meal) Adult Sodium Restriction: 2,000 mg Na Percent Meals Eaten (%): 100% of meals Diet Experience and Nutrition History: Diet Education Provided: Will monitor Pertinent home medications: Albuterol, Bumex, Insulin, Metformin, Ozempic, Aldactone Anabaptism needs: Nutrition Focused Physical Exam: Physical exam [...] chloride * Progress Notes - Lynda Choudhury, COUPON AND BOND COLLECTION CLERK - 05/09/2025 8:09 AM EDT Endocrine [...] continue to assess need -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 For after hours please [...] has been following with urology outpatient at [facility]. They have postulated this to be related to his diabetes and have had several voiding trials which have failed. Also has un dergone proctoscopy (?) which was normal. 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 For after hours please [...] Note Gonzalo Smalls 49 y.o. male CSN: [id number] Admission: 04/27/2025 9:29 PM Primary Problem: Diabetic [...] acute rehab. RNCM awaiting MD approval from [facility]. Liaison will reach out with answer. Will continue to follow. RNCM will continue to monitor for further discharge needs. Mayra Apodcaa RN * Care Plan - Jeevan Shah RN - 05/08/2025 12:43 PM EDT Problem: Wound Goal: Optimal Wound Healing Outcome: Ongoing, Progressing Intervention: Promote Wound Healing Note: See recs, cont wound vac Patient evaluated by [facility] nurse, individualized recommendations placed and care plan [...] 05/08/2025 10:19 AM Wound Image Wound Assessment [place];Red (moist) Margins Well-defined edges [place]-Wound Assessment Intact [...] the video go to this web address: https://bit.[email or web address] Or, scan this QR code with your smart phone ?? [facility] * Thi Chavarria RN - 05/08/2025 10:55 AM EDT Images from the original note were not included. Type 2 diabetes: 7 Ways to Prevent Custodial Complications - Video Watch this video to [...] the video go to this web address: https://bit.ly/[email or web address] Or, scan this QR code with your [...] to gently smooth the nail. Have a chief clinical officer trim your nails if you can't see [...] remove corns, calluses, or warts by yourself. Ithf-paz-eqlfjex products can burn or damage your skin. [...] your primary care doctor or by a chief clinical officer. This is a doctor who specializes in foot care. Some diabetes centers have regular foot clinics. Last Reviewed Date: 2024 00:00:00 ?? [id number] The [employer]. All rights reserved. This information is not [...] the video go to this web address: [email or web address] Or, scan this QR code with your [...] recurrent UTIs,BPH, morbid obesity who presented to [facility] ED with diabetic foot ulcer. [...] states. After this he presented to an [facility] urologist Dr. Painting who stated to [...] (NEURONTIN) 600 mg, 3 times daily HYDROcodone-acetaminophen ([place]) 10-325 MG tablet 1 tablet, Every 6 hours PRN Insulin Pen Needle (Pen [place]) 31G X 5 MM misc USE TO [...] obesity and uncontrolled diabetes who presented to [facility] ED with diabetic foot ulcer. [...] states. After this he presented to an [facility] urologist Dr. Painting who stated to [...] established care with a Dr. Mendenhall an [facility] urologist as this is closer to [...] established care with a Dr. Mendenhall an [facility] urologist as this is closer to [...] has been following with urology outpatient at [facility]. They have postulated this to be related to his diabetes and have had several voiding trials which have failed. Also has un dergone proctoscopy (?) which was normal. 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 and he [...] Mobility Bed Mobility Exam: Scooting/Bridging Level of [place]: Stand-by assist Physical/Nonphysical Assist: Verbal Cues Bed Mobility Exam: Supine to Sit Level of [place]: Contact guard Physical/Nonphysical Assist: Set-up required, Verbal Cues, Minimal cues Bed Mobility Exam: Sit to Supine Level of [place]: Minimum assist (75% patient's effort) Physical/Nonphysical Assist: Set-up required, Verbal Cues, Minimal cues Transfers Transfer Exam: Sit to stand Level of [place]: (Pt attempted with use of bariatric RW; [...] return to supine. Therapeutic Exercise Access Code: [email or web address] HEP printed and pt received copy with [...] provided based on observable deficits.* Level of [place] Interventions Grooming Patient demo's adequate BUE strength/ROM [...] maintain WB status. FUNCTIONAL MOBILITY Level of [place] Physical/Non-physical Assist Adaptive Equipment Utilized Scooting/ Bridging [...] Appearance Posture: Within Functional Limits Level of [place] Balance Support Static Sit Standby assist Feet supported Dynamic Sit Standby assisst Feet supported THERAPEUTIC EXERCISE INTERVENTIONS (10 minutes) Treatment Details The patient was educated re: implementation of BUE HEP in order to target muscle groups necessary for functional mobility and ADL independence. HEP printed and each exercise reviewed, pt verbalized understanding. [employer] Access Details (if appropriate) Access Code: [email or web address] URL: [email or web address] Date: 05/07/25 Exercises Included - Seated Elbow [...] has been following with urology outpatient at [facility]. They have postulated this to be related to his diabetes and have had several voiding trials which have failed. Also has un dergone proctoscopy (?) which was normal. 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 For after hours please [...] has been following with urology outpatient at [facility]. They have postulated this to be related to his diabetes and have had several voiding trials which have failed. Also has un dergone proctoscopy (?) which was normal. 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 For after hours please [...] is in abx, has his CHG and [place] wipes done in this shift Problem: Mobility [...] surgery; wound vac applied 05/03 by [facility] Wound Assessment: Wound 05/01/25 Surgical Toe (Comment which one) Anterior;Right (Active) Date First Assessed/Time First Assessed: 05/01/25 0805 Present on Original Admission: No Hand Hygiene Completed: Yes Primary Wound Type: Surgical Location: Toe (Comment which one) Wound Location Orientation: Anterior;Right Assessments 05/05/2025 11:44 AM Wound Image Wound Assessment [place];Red (moist , full thickness) Margins Well-defined edges [...] orders noted for wound vac, maessaged [facility] team for guidance. Orders placedfor [...] wound vac in use Patient evaluated by [facility] nurse, individualized recommendations placed and care plan interventions updated; see wound care note for details regarding recommendations to support optimal wound healing. * Progress Notes - Mayra Apodaca RN - 05/05/2025 12:30 PM EDT Case Management Adult Progress Note Gonzalo Smalls 49 y.o. male CSN: [id number] Admission: 04/27/2025 9:29 PM Primary Problem: Diabetic [...] No MDRO isolated 04/27/25 Blood culture NGTD [facility] Culture Data: - 04/25/25: Blood culture [...] pathology. Patient is planned to discharge to [facility]. Recommend close follow-up with vascular surgery [...] PA-C Division of Infectious Diseases Available by [employer] History, assessment, and plan discussed with ID [...] Units 8 Units Subcutaneous BID PRN Sarah Mratinez, COUPON AND BOND COLLECTION CLERK insulin NPH (Isophane) (HumuLIN N,NovoLIN N) [...] mellitus - type 2 -Home medications: CGM: Storactive G7 Insulin regimen: U500 insulin: prescription for [...] via secure chat or page us at [phone] during 7a-7p, Thursday-Thursday. For after hours please [...] precautions. Bed Mobility Exam: Rolling/Turning Level of [place]: Contact guard Physical/Nonphysical Assist: Verbal Cues, Moderate cues Bed Mobility Exam: Scooting/Bridging Level of [place]: Stand-by assist Bed Mobility Exam: Supine to Sit Level of [place]: Contact guard Physical/Nonphysical Assist: Verbal Cues Bed Mobility Exam: Sit to Supine Level of [place]: Stand-by assist Patient performed rolling bilaterally for placement of lift pad. Transfers Transfer Exam: Sit to stand Level of [place]: (Patient unable to perform without engaging right [...] promote tempo and full ROM. Standardized Assessments [facility] 6-Clicks Mobility Assessment Difficulty patient has [...] climbing 3-5 steps with a railing?: Unable [facility] 6-Clicks Mobility Assessment Total : 12 [...] help from Spouse Level of Mobility Mobility [place] History of Falls ADL Performance Needs assistance [...] to therapy this date. Visitors Present No Registered Nurse Cardiac (if applicable) OBJECTIVE PAIN Pain Score (0-10): [...] sba for bed mobility tasks. Level of [place] Adaptive Equipment Utilized Comments Feeding Grooming Setup washing face/hands Bathing Upper Body Dressing Lower Body Dressing Shoe Level of Assistance: Dependent Toileting IADLs Health Management Community Re-Entry BALANCE Postural Appearance INTERVENTIONS Level of [place] Balance Support Comments Static Sit Standby assist [...] weight shifting to promote safety. Level of [place] Physical/Non-physical Assist Adaptive Equipment Utilized Rolling/ Turning [...] No MDRO isolated 04/27/25 Blood culture NGTD [facility] Culture Data: - 04/25/25: Blood culture [...] PA-C Division of Infectious Diseases Available by [employer] History, assessment, and plan discussed with ID [...] mL IVPB (vial adapter required) 2 g Jctgarleackr2l Diane Guzman MD 36.7 mL/hr at 05/03/25 [...] Units Subcutaneous TID with meals Sarah Martinez, COUPON AND BOND COLLECTION CLERK 30 Units at 05/03/251810 Insulin Lispro (Admelog, HumaLOG) 100 UNIT/ML injection 8 Units 8 Units Subcutaneous BID PRN Sarah Martinez P, COUPON AND BOND COLLECTION CLERK insulin NPH (Isophane) (HumuLIN N,NovoLIN N) injection 50 Units 50 Units Subcutaneous BID Sarah Martinez P, COUPON AND BOND COLLECTION CLERK 50 Units at 05/03/252043 ipratropium-albuterol (Duo-Neb) 0.5-2.5 [...] (H) 05/02/2025 I reviewed bg tracing in [facility] glucose timeline 05/04/25 ASSESSMENT Hospital Course: [...] mellitus - type 2 -Home medications: CGM: DexMesitis G7 Insulin regimen: U500 insulin: prescription for [...] continue to assess need -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 For after hours please [...] from the original note were not included. [facility] Department of Surgery Division of [...] an 49 y.o. male who presented to [facility] 04/27/2025 with diabetic foot ulcer now [...] Note Gonzalo Smalls 49 y.o. male CSN: [id number] Admission: 04/27/2025 9:29 PM Primary Problem: Diabetic [...] No MDRO isolated 04/27/25 Blood culture NGTD [facility] Culture Data: - 04/25/25: Blood culture [...] PA-C Division of Infectious Diseases Available by [employer] History, assessment, and plan discussed with [...] Units Subcutaneous TID with meals Sarah Martinez, COUPON AND BOND COLLECTION CLERK 30 Units at 05/03/25 09 Insulin Lispro (Admelog, HumaLOG) 100 UNIT/ML injection 6 Units 6 Units Subcutaneous BID PRN Sarah Martinez, COUPON AND BOND COLLECTION CLERK insulin NPH (Isophane) (HumuLIN N,NovoLIN N) [...] Days * Progress Notes - Sarah Martinez, COUPON AND BOND COLLECTION CLERK - 05/03/2025 7:55 AM EDT Endocrine [...] continue to assess need -Follow-up plan: home auto service representative - Anette Kendall -Tentative discharge recommendations: [...] via secure chat or page us at [phone] during 7a-7p, Thursday-Thursday. For after hours please [...] from the original note were not included. [facility] Department of Surgery Division of [...] degrees Note: See recs Patient evaluated by [facility] nurse, individualized recommendations placed and care plan [...] new issues or concerns Jeevan Shah RN [facility] 05/02/2025 12:54 PM * Query Clarification Note [...] No MDRO isolated 04/27/25 Blood culture NGTD [facility] Culture Data: - 04/25/25: Blood culture [...] PA-C Division of Infectious Diseases Available by [employer] Chat History, assessment, and plan discussed with [...] Subcutaneous TID with meals Sarah Martinez P, COUPON AND BOND COLLECTION CLERK 24 Units at 05/02/25 0912 insulin NPH (Isophane) (HumuLIN N,NovoLIN N) injection 42 Units 42 Units Subcutaneous BID Sarah Martinez P, COUPON AND BOND COLLECTION CLERK ipratropium-albuterol (Duo-Neb) 0.5-2.5 mg/3 mL nebulizer solution [...] 17 g 17 g Oral Daily Marjorie Myres MD 17 g at 05/02/25 09 [Held [...] Note Gonzalo Smalls 49 y.o. male CSN: [id number] Room/Bed 117/117A Nutrition evaluation type: assessment Reason [...] at bedside. 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 No known unintentional weight changes, UBW 570#. No chewing or swallowing difficulties. No N/V/D. Reports being constipated - finally had a BM today after 6 days though notes he feels he still needs to go. Agreeable to Kyree to aid in woundhealing. Vitals and Basic Assessment: BP: 132/75 Temp: 36.8 ??C (98.2 ??F) Oxygen Therapy: Supplemental oxygen O2 Delivery Method: Nasal cannula [place] Coma Scale Score: 15 Miguel Ángel Scale [...] Weight Evaluation: Extreme Obesity (BMI > 40) [place] Body Weight (kg): 80.9 Percent [place] Body Weight: 311 Adjusted Body Weight (kg): [...] Regular Adult Carbohydrate Restriction: Consistent CHO 1 (2947-0613 Steven, 65 g/meal) Adult Sodium Restriction: 2,000 mg Na Percent Meals Eaten (%): 68% avg x 5 meals Diet Experience and Nutrition History: Diet Education Provided: Will monitor Pertinent home medications: Albuterol, Bumex, Insulin, Metformin, Ozempic, Aldactone Anabaptism needs: Nutrition Focused Physical Exam: Physical exam [...] from the original note were not included. [facility] Department of Surgery Division of [...] snacking overnight while watching the games including Colibrí, goldfish, ritz crackers and other snacks -no [...] -plan and management discussed with patient, family living educator, bedside RN NOTE: -Patient utilizes U500 insulin pen at home. With the U500 pen, a conversion is not needed. Typically patient's required a 70% reduction in home U500 dosing. 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: home auto service representative - Anette Kendall -Tentative discharge recommendations: [...] via secure chat or page us at [phone] during 7a-7p, Thursday-Thursday. For after hours please [...] and rec amputation vs transfer to [facility] for podiatry input about foot salvage : cannot transfer to [facility] given weight limit, pod team cannot come [...] Note Gonzalo Smalls 49 y.o. male CSN: [id number] Admission: 04/27/2025 9:29 PM Primary Problem: Diabetic [...] nursing staff. I have notified senior resident/attending power tong operator with any issues or concerns. Leidy Velasco [...] bony pathology, duration TBD - Will contact [facility] tomorrow to check on urine culture [...] PA-C Division of Infectious Diseases Available by [employer] History, assessment, and plan discussed with ID [...] (Sublimaze) injection Intravenous PRN Muzic, Og A, ENVIRONMENTAL GEOLOGIST 25 mcg at 05/01/25 0826 lactated Ringer's infusion Intravenous Continuous PRN Muzic, Og A, ENVIRONMENTAL GEOLOGIST New Bag at 05/01/25 0728 midazolam (Versed) injection Intravenous PRN Muzic, Og A, ENVIRONMENTAL GEOLOGIST 1 mg at 05/01/25 0757 [2] Allergies [...] mellitus - type 2 -Home medications: CGM: Storactive G7 Insulin regimen: U500 insulin: prescription for [...] continue to assess need -Follow-up plan: home auto service representative - Anette Kendall -Tentative discharge recommendations: [...] team via secure chat orpage us at [phone] during 7a-7p, Thursday-Thursday. For after hours please [...] AM EDT Operative Note Date: 05/01/25 Location: [place] [facility] Name: Gonzalo Smalls, : 1975, Diagnoses: Pre-op Diagnosis Other chronic osteomyelitis of right foot (CMS/HCC) Post-op Diagnosis Other chronic osteomyelitis of right foot (CMS/HCC) Procedure(s): Right 5th toe ray amputation Attending Surgeon(s): * Mary Vicente - Primary Java Developer Analyst(s): * Paula Martinez MD - Resident - [...] and rec amputation vs transfer to [facility] for podiatry input about foot salvage : cannot transfer to [facility] given weight limit, pod team cannot come [...] kg/m?? Labs and medications reviewed. Blood glucose [id number] Medications: Current Scheduled Medications[1] Current Continuous Medications[2] [...] continue to assess need -Follow-up plan: home auto service representative - Anette Kendall -Tentative discharge recommendations: [...] PGY-4 Division of Endocrinology, Diabetes and Metabolism [facility] Medically Ready for Discharge: [1] atorvastatin, 40 [...] from the original note were not included. [facility] Department of Surgery Division of [...] is unable to be transferred to [facility] for Podiatry due to weight Edited by: [...] 2LNC at night, recurrent UTIswho presented to [facility] with nonhealing right foot wound. Radiographs [...] kg/m?? Labs and medications reviewed. Blood glucose [id number] Medications: Current Scheduled Medications[1] Current Continuous [...] continue to assess need -Follow-up plan: home auto service representative - Anette Kendall -Tentative discharge recommendations: [...] PGY-4 Division of Endocrinology, Diabetes and Metabolism [facility] [1] atorvastatin, 40 mg, Oral, Nightly bisoprolol, [...] amputation but we can transfer to [facility] for pod input about the surgery for the DM wound Vas team do not feel a debridement would sufficiently treat his wound. Reached out to APT team and plan to transfer him to [facility] Review of Systems Pain in right foot [...] and rec amputation vs transfer to [facility] for podiatry input about foot salvage - [...] continue to assess need -Follow-up plan: home auto service representative - Anette Kendall -Tentative discharge recommendations: [...] team via secure chat orpage us at [phone] during 7a-7p, Thursday-Thursday. For after hours please [...] Note Gonzalo Smalls 49 y.o. male CSN: [id number] Admission: 04/27/2025 9:29 PM Primary Problem: Diabetic foot ulcer Auto Brake Technician reviewed chart and spoke with patient at bedside to complete this Initial Case Management Assessment. PCP: Malcolm Hayward APRN Emergency Contact: Extended Emergency Contact Information Primary Emergency Contact: Maggie Smalls Mobile Relation: Spouse Preferred language: Congolese Registered Nurse Cardiac needed? No Insurance: Primary Visit Coverage Payer Plan Sponsor Code Group Number Group Name THIAGO SOTOMAYOR/[facility] [place] [id number] [employer] Primary Visit Coverage Subscriber Subscriber ID Subscriber Name Subscriber SSN Subscriber Address [id number] GONZALO SMALLS [id number] [address] [place] [address] Secondary Visit Coverage Payer Plan Sponsor Code Group Number Group Name MEDICARE MEDICARE A & B Secondary Visit Coverage Subscriber Subscriber ID Subscriber Name Subscriber SSN Subscriber Address [id number] GONZALO SMALLS [id number] [address] [id number] Patient information: Primary Caregiver: Self Support System: Immediate family Daily Living Activities: Functional Status: Minimum assistance Living Arrangements: Spouse/Significant other, Children (daughter) Type of Residence: Private residence, Single Level (3 MIC[address]) [address] [address] Smoker in the Home?: No Current DME: [...] line dressing changes Living Will/Advance Directive/Power of Business Liaison Officer /Guardian: None Additional Comments: Patient admitted for [...] from the original note were not included. [facility] Department of Surgery Division of [...] night, recurrent UTIs who presented to [facility] on 04/27/2025 with right foot wound. [...] file Social Connections: Unknown (04/24/2023) Received from [facility] Family and Community Support Help with [...] History Administered Date(s) Administered Moderna COVID-19 Vaccine (Button Tufter) 12+ years 01/25/2021, 02/22/2021 Pneumococcal Conjugate PCV [...] a day. 09/05/21 Yes Provider, Historical HYDROcodone-acetaminophen (Gresham) 10-325 MG tablet Take 1 tablet by [...] Yes Provider, Historical Insulin Pen Needle (Pen Manassa) 31G X 5 MM misc USE TO [...] 6 hours as needed for pain. Under [place] law, monthly prescriptions (30 days) can be [...] 11:38 PM Final report signed by Kim Bia MD on 04/27/2025 11:40 PM Radiographic Interpretation: I have reviewed the imaging above and agree with the radiologist interpretation. Assessment/Plan Assessment & Plan: Gonzalo Smalls is a 49 y.o. male with PMHx notable for class III obesity, CHF (EF 55% in 2021), paroxsymal atrial fibrillation (on Xarelto), HTN, HLD, T2DM, COPD, QUINN on 2LNC at night, recurrent UTIswho presented to [facility] with nonhealing right foot wound. Radiographs [...] Units Subcutaneous TID with meals Aileen Leonardo, COUPON AND BOND COLLECTION CLERK 20 Units at 04/28/25 1155 insulin NPH [...] by mouth 3 times a day. HYDROcodone-acetaminophen (Gresham) 10-325 MG tablet Take 1 tablet by [...] by mouth daily. Insulin Pen Needle (Pen Manassa) 31G X 5 MM misc USE TO [...] [X] Family [ ] Friend [ ] Registered Nurse Cardiac [X] Medical records HISTORY OF PRESENT ILLNESS: [...] and was treated in theemergency department at [facility] a few days ago where a [...] in the ED 2-3 days ago at [facility]. I contacted OSH who report blood [...] a day. 09/05/21 Yes Provider, Historical HYDROcodone-acetaminophen (Gresham) 10-325 MG tablet Take 1 tablet by [...] Yes Provider, Historical Insulin Pen Needle (Pen Manassa) 31G X 5 MM misc USE TO [...] 6 hours as needed for pain. Under [place] law, monthly prescriptions (30 days) can be [...] Will follow-up blood and urine cultures from [facility] for further ID/susceptibilities, obtained 04/25 - Please obtain adult ID screening labs: Hep A IgG, Hep B sAb, Hep B sAg, and Hep B total core Ab - Plan of care and recommendations discussed with patient's primary provider Thank you for allowing us to participate in this patient's care. ID will follow. Janelle Phan PA-C Division of Infectious Diseases Available by [employer] History, assessment, and plan discussed with ID [...] by mouth 3 times a day. HYDROcodone-acetaminophen (Gresham) 10-325 MG tablet Take 1 tablet by [...] by mouth daily. Insulin Pen Needle (Pen Manassa) 31G X 5 MM misc USE TO [...] back pain 04/22/2019 Hypertension 02/18/2019 Morbid obesity ([facility]) 12/24/2016 Procedures Past Medical History Patient has a past medical history of Acute kidney injury (05/19/2024), Alcohol abuse, in remission, Anxiety disorder, unspecified, Arthritis, Atrial fibrillation ([facility]), CAP (community acquired pneumonia) (05/19/2024), Cellulitis (05/19/2024), [...] in Care Family/Caregiver Present: Yes Family/Caregiver: Spouse Registered Nurse Cardiac: Not Applicable Presentation Oxygen Therapy: None (Room [...] Needs assist Patient/Family Goals Return home at [facility]. Objective Pain Pt reports 7/10 pain in [...] pain. Bed Mobility Exam: Rolling/Turning Level of [place]: Maximum assist (25% patient effort) Physical/Nonphysical Assist: Verbal Cues, Moderate cues Assistive Device: Bed rails, Other (EMAIL PRODUCTION SPECIALIST) Bed Mobility Exam: Scooting/Bridging Level of [place]: Maximum assist (25% patient's effort) (up in bed; Lester forward at EOB) Physical/Nonphysical Assist: Verbal Cues, Moderate cues Assistive Device: Bed rails Bed Mobility Exam: Supine to Sit Level of [place]: Maximum assist (25% patient's effort) Physical/Nonphysical Assist: Verbal Cues, Moderate cues, Set-up required, Additional assist utilized for safety Assistive Device: Other (EMAIL PRODUCTION SPECIALIST) Bed Mobility Exam: Sit to Supine Level of [place]: Maximum assist (25% patient's effort) Physical/Nonphysical Assist: [...] space Standardized Assessments Standardized Assessments Standardized Assessments: [facility] 6-Clicks Mobility Assessment [facility] 6-Clicks Mobility Assessment Difficulty patient has [...] climbing 3-5 steps with a railing?: Unable [facility] 6-Clicks Mobility Assessment Total : 8 [...] remission, Anxiety disorder, unspecified, Arthritis, Atrial fibrillation ([facility]), CAP (community acquired pneumonia) (05/19/2024), Cellulitis (05/19/2024), [...] CARE Subjective Pt reports Visitors Present Spouse Registered Nurse Cardiac (if applicable) PRESENTATION Oxygen Room Air Telemetry [...] help from Spouse Level of Mobility Mobility [place] History of Falls ADL Performance ADL Performance: [...] Mobility Bed Mobility Exam: Rolling/Turning Level of [place]: Maximum assist (25% patient effort) Physical/Nonphysical Assist: Verbal Cues, Moderate cues Assistive Device: Bed rails, Other (EMAIL PRODUCTION SPECIALIST) Bed Mobility Exam: Scooting/Bridging Level of [place]: Maximum assist (25% patient's effort) (up in bed; Lester forward at EOB) Physical/Nonphysical Assist: Verbal Cues, Moderate cues Assistive Device: Bed rails Bed Mobility Exam: Supine to Sit Level of [place]: Maximum assist (25% patient's effort) Physical/Nonphysical Assist: Verbal Cues, Moderate cues, Set-up required, Additional assist utilized for safety Assistive Device: Other (EMAIL PRODUCTION SPECIALIST) Bed Mobility Exam: Sit to Supine Level of [place]: Maximum assist (25% patient's effort) Physical/Nonphysical Assist: [...] POC an d discharge recommendations. STANDARDIZED ASSESSMENTS [facility] 6-Click Daily Activities Help from Other: Don/Doff Regular Lower Body Clothings: A lot Help From Other: Bathing: A lot Help From Other: Toileting: A lot Help From Other: Don/Doff Upper Body Clothings: None Help From Other: Grooming: None Help From Other: Eating Meals: None [facility] 6 Click - Daily Activities Score: [...] Lunch: leftovers/baked oatmeal Dinner: take out/cooking - [email or web address], cracker barrel Snacks: peanut butter crackers, cheese [...] continue to assess need -Follow-up plan: home auto service representative - Anette Kendall -Tentative discharge recommendations: [...] team via secure chat orpage us at [phone] during 7a-7p, Thursday-Thursday. For after hours please [...] by mouth 3 times a day. HYDROcodone-acetaminophen (Gresham) 10-325 MG tablet Take 1 tablet by [...] by mouth daily. Insulin Pen Needle (Pen Manassa) 31G X 5 MM [facility] USE TO INJECT [...] 04/28/2025 6:09 AM EDTAssociated Order(s): Consult to [facility] Steve Images from the original note were not included. Consult to [facility] Rich Wilson Consult performed by: Sy De [...] 6 hours as needed for pain. Under [place] law, monthly prescriptions (30 days) can be [...] times a day. 09/05/21 Provider, Historical HYDROcodone-acetaminophen (Gresham) 10-325 MG tablet Take 1 tablet by mouth every 6 hours as needed. Provider, Historical insulin NPH-insulin regular (NovoLIN 70/30 FlexPen) (70-30) 100 UNIT/ML injection pen Inject 90 Units under the skin 3 times a day before meals. FURTHER REFILLS WILL BE PROVIDED UPON ATTENDANCE OF NEXT OFFICE VISIT 03/29/25 02/22/25 Divine Archer APRN Insulin Pen Needle (Pen Manassa) 31G X 5 MM [facility] USE TO INJECT [...] Value Units Date/Time Blood Culture (Aerobic/Anaerobet Set) [[id number]] Collected: 04/27/252215 Order Status: Completed Specimen: Blood, Venous Updated: 04/28/25111 Culture Culture in lab Blood Culture (Aerobic/Anaerobet Set) [[id number]] Collected: 04/27/252215 Order Status: Completed Specimen: Blood, [...] Anxiety disorder, unspecified Anxiety Arthritis Atrial fibrillation ([facility]/HCC) CAP (community acquired pneumonia) 05/19/2024 Cellulitis [...] warmth, chills, vomiting. History provided by: Patient medical reimbursement manager used: No I agree with the above [...] ???kidney infection?? where he was admitted at [facility]. Patient denies any shortness of breath, [...] records from his previous hospital visit at [facility] which showed he was being treated [...] Ordered Status Ordering Provider 04/28/25541 Consult to [facility] Specialty: Internal Medicine Provider: [...] bicarb depletion. Low concern for DKA [SH] Mari aC Apr 28, 2025 0238 Spoke with pharmacy team, patient had ertapenem coverage and we expanded to Merrem for 1 time dose prior to likely admission given the lack of Pseudomonas coverage. I spoke with the commodity loan clerk to tryto get records from [facility] to see why he was being [...] Anxiety disorder, unspecified Anxiety Arthritis Atrial fibrillation ([facility]) CAP (community acquired pneumonia) 05/19/2024 Cellulitis 05/19/2024 [...] the comment field Red man syndrome Ani, Ejssa, MD 05/07/25 1047 * ED Triage Notes - Francisco Javier Hansen, RN - 04/27/2025 7:16 PM EDT Pt endorsing diabetic wound to his R foot x2-3 months. documented in this encounter Plan of Treatment Upcoming Encounters Date Type Department Care Team (Late st Contact Info) Description 06/22/2025 1:40 PM EST Office Visit [facility] [address] [place] [address] [address] [place] [address] Mary Vicente MD [facility] [address] [facility] [address] [place] [address] 06/23/2025 8:00 AM EST Office Visit [facility] [address] [place] [address] [address] [place] [address] Sheila Marcano, BLAS [address] [facility] [address] [place] [address] Scheduled Orders Name Type Priority Associated Diagnoses [...] 99 mg/dL 05/18/2025 8:11 AM EST [facility] Comment:Accuracy of a glucos e result [...] for testing. Comment 05/18/2025 8:11 AM EST [facility] Insurance Commissioner ID Char Hinojosa 05/18/2025 8:11 AM EST [facility] Device ID [id number] 05/18/2025 8:11 AM EST [facility] Specimen Type POC Capillary 05/18/2025 8:11 AM EST [facility] Blood Capillary blood specimen / Unknown 05/18/2025 8:09 AM EST 05/18/2025 8:11 AM EST Umar R Jay Jay DO LAB POINT OF CARE TE ST DOCKED DEVICE UNSOLICITED RESULTS Final Result [facility] [address] [place] [address] * (ABNORMAL) POCT glucose meter (05/17/2025 7:54 [...] 05/17/2025 7:55 PM EST [facility] Insurance Commissioner ID Ron Lal 7:55 PM EST [facility] Device ID [id number] 05/17/2025 7:55 PM EST [facility] Specimen Type POC Capillary 05/17/2025 7:55 PM EST [facility] Blood Capillary blood specimen / Unknown 05/17/2025 7:54 PM EST 05/17/2025 7:55 PM EST Wily Goyal DO LAB POINT OF CARE TE ST DOCKED DEVICE UNSOLICITED RESULTS Final Result Performing Organization Address [facility] Phone Number [facility] [address] [place] [address] * (ABNORMAL) POCT glucose meter (05/17/2025 5:13 PM EST) [facility] POCT Glucose 186(H) 74 - [...] 05/17/2025 5:14 PM EST [facility] Insurance Commissioner ID Char Hinojosa 05/17/2025 5:14 PM EST [facility] Device ID [id number] 05/17/2025 5:14 PM EST [facility] Specimen Type POC Capillary 05/17/2025 5:14 PM EST [facility] Blood Capillary blood specimen / Unknown 05/17/2025 5:13 PM EST 05/17/2025 5:14 PM EST Wily Goyal DO LAB POINT OF CARE TE ST DOCKED DEVICE UNSOLICITED RESULTS Final Result Performing Organization Address City/[facility]/ZIP Co de Phone Number [facility] [address] [place] [address] * (ABNORMAL) POCT glucose meter (05/17/2025 1:01 PM EST) [facility] POCT Glucose 191(H) 74 - [...] Comment 05/31/2025 3:12 PM EST [facility] Insurance Commissioner ID Char Hinojosa 05/31/2025 3:12 PM EST [facility] Device ID [id number] 05/31/2025 3:12 PM EST [facility] Specimen Type POC Capillary 05/31/2025 3:12 PM EST [email or web address] Blood Capillary blood specimen / Unknown 05/17/2025 1:01 PM EST 05/31/2025 3:12 PM EST us Wily Goyal DO LAB POINT OF CARE TE ST DOCKED DEVICE UNSOLICITED RESULTS Final Result Performing Organization Address [facility] de Phone Number [facility] [address] [place] [address] * ECHO, ADULT TRANSTHORACIC COMPLETE W/ CONTRAST (05/17/2025 9:51 AM EST) [facility] BSA 3.30 m2 HANK ISCV [...] Ao Diam 37 mm HANK ISCV PA OK(ACCEL) 24.6 mmHg HANK ISCV LV mean PG [...] is no recent study available for direct [id number] comparison. Left Ventricle The left ventricle is [...] is no recent study available for direct [id number] comparison. Wily Goyal DO CV ECHO PROCEDURES Final Result * (ABNORMAL) POCT glucose meter (05/17/2025 8:52 AM EST) [facility] POCT Glucose 225(H) 74 - 99 mg/dL 05/31/2025 3:12 PM EST [facility] Comment:Accuracy of a glucos e result [...] for testing. Comment 05/31/2025 3:12 PM EST [facility] Insurance Commissioner ID Char Hinojosa 05/31/2025 3:12 PM EST [facility] Device ID [id number] 05/31/2025 3:12 PM EST [facility] Specimen Type POC Capillary 05/31/2025 3:12 PM EST [email or web address] Blood Capillary blood specimen / Unknown 05/17/2025 8:52 AM EST 05/31/2025 3:12 PM EST [email or web address] Jay DO LAB POINT OF CARE TE ST DOCKED DEVICE UNSOLICITED RESULTS Final Result [facility] [address] [place] [address] * (ABNORMAL) POCT glucose meter (05/16/2025 9:28 PM EST) [facility] POCT Glucose 199(H) 74 - [...] 05/31/2025 3:12 PM EST [facility] Insurance Commissioner ID Jamal Soriano 3:12 PM EST [facility] Device ID [id number] 05/31/2025 3:12 PM EST [facility] Specimen Type POC Capillary 05/31/2025 3:12 PM EST [facility] Blood Capillary blood specimen / Unknown 05/16/2025 9:28 PM EST 05/31/2025 3:12 PM EST Wily Goyal DO LAB POINT OF CARE TE ST DOCKED DEVICE UNSOLICITED RESULTS Final Result [facility] [address] [place] [address] * (ABNORMAL) POCT glucose meter (05/16/2025 5:37 PM EST) [facility] POCT Glucose 283(H) 74 - [...] 05/16/2025 5:39 PM EST [facility] Insurance Commissioner ID Char Hinojosa 05/16/2025 5:39 PM EST [facility] Device ID [id number] 05/16/2025 5:39 PM EST [facility] Specimen Type POC Capillary 05/16/2025 5:39 PM EST [facility] Blood Capillary blood specimen / Unknown 05/16/2025 5:37 PM EST 05/16/2025 5:39 PM EST us Umar Rodrick Goyal DO LAB POINT OF CARE TE ST DOCKED DEVICE UNSOLICITED RESULTS Final Result Performing Organization Address City/[facility] Co de Phone Number [facility] [address] [place] [address] * ECG Adult (05/16/2025 3:33 PM EST) EKG DIAGNOSIS CLASS Abnormal MUSE ECG Ventricular Rate 58 BPM MUSE ECG Atrial Rate 58 BPM MUSE ECG OK Interval 184 ms MUSE ECG QRSD Interval 158 ms MUSE ECG QT Interval 496 ms MUSE ECG QTC Interval 486 ms MUSE ECG P [place] 30 degrees MUSE ECG R [place] -35 degrees MUSE ECG T Wave [place] -5 degrees MUSE ECG Diagnosis Sinus bradycardia [...] ECG ORDERABLES Final Result Performing Organization Address [facility] de Phone Number MUSE ECG * (ABNORMAL) POCT glucose meter (05/16/2025 12:06 PM EST) [facility] POCT Glucose 161(H) 74 - 99 mg/dL 05/16/2025 12:07 PM EST [facility] Comment:Accuracy of a glucos e result [...] 05/16/2025 12:07 PM EST [facility] Insurance Commissioner ID Char Hinojosa 05/16/2025 12:07 PM EST [facility] Device ID [id number] 05/16/2025 12:07 PM EST [facility] Specimen Type POC Capillary 05/16/2025 12:07 PM EST [facility] Blood Capillary blood specimen / Unknown 05/16/2025 12:06 PM EST 05/16/2025 12:07 PM EST us Selin Lee MD LAB POINT OF CARE TE ST DOCKED DEVICE UNSOLICITED RESULTS Final Result Performing Organization Address City/[facility]/ZIP Co de Phone Number [facility] [address] [place] [address] * (ABNORMAL) POCT glucose meter (05/16/2025 8:17 AM EST) [facility] POCT Glucose 168(H) 74 - 99 mg/dL 05/16/2025 8:21 AM EST [facility] Comment:Accuracy of a glucos e result [...] for testing. Comment 05/16/2025 8:21 AM EST [facility] Insurance Commissioner ID Char Hinojosa 05/16/2025 8:21 AM EST [facility] Device ID [id number] 05/16/2025 8:21 AM EST [facility] Specimen Type POC Capillary 05/16/2025 8:21 AM EST [facility] Blood Capillary blood specimen / Unknown 05/16/2025 8:17 AM EST 05/16/2025 8:21 AM EST us Selin Lee MD LAB POINT OF CARE TE ST DOCKED DEVICE UNSOLICITED RESULTS Final Result Performing Organization Address City/[facility]/ZIP Co de Phone Number [facility] [address] [place] [address] * (ABNORMAL) CBC and Differential (05/16/2025 4:08 AM EST) WBC Count 7.97 3.70 - 10.30 10*3/uL LAB HEMATOLOGY METHOD 05/16/2025 4:26 AM EST [facility] RBC Count 4.27(L) 4.60 - 6.10 10*6/uL LAB HEMATOLOGY METHOD 05/16/2025 4:26 AM EST [facility] HGB 9.5(L) 13.7 - 17.5 g/dL LAB HEMATOLOGY METHOD 05/16/2025 4:26 AM [facility] HCT 31.6(L) 40.0 - 51.0 % LAB HEMATOLOGY METHOD 05/16/2025 4:26 AM EST [facility] Platelet Count 264 155 - 369 10*3/uL LAB HEMATOLOGY METHOD 05/16/2025 4:26 AM [facility] MCV 74(L) 79 - 98 fL LAB HEMATOLOGY METHOD 05/16/2025 4:26 AM [facility] MCH 22.2(L) 26.0 - 32.0 pg LAB HEMATOLOGY METHOD 05/16/2025 4:26 AM [facility] MCHC 30.1(L) 30.7 - 35.5 g/dL LAB HEMATOLOGY METHOD 05/16/2025 4:26 AM [facility] RDW 17.9(H) 11.5 - 14.5 % LAB HEMATOLOGY METHOD 05/16/2025 4:26 AM [facility] MPV 9.2 8.8 - 12.5 fL LAB HEMATOLOGY METHOD 05/16/2025 4:26 AM [facility] nRBC 0.0 <=0.0 per 100 WBCs LAB HEMATOLOGY METHOD 05/16/2025 4:26 AM [facility] Differential Type Automated LAB HEMATOLOGY METHOD 05/16/2025 4:26 AM [facility] Neutrophils % 67 % LAB HEMATOLOGY METHOD 05/16/2025 4:26 AM [facility] Lymphocytes % 16 % LAB HEMATOLOGY METHOD 05/16/2025 4:26 AM [facility] Monocytes % 12 % LAB HEMATOLOGY METHOD 05/16/2025 4:26 AM [facility] Eosinophils % 3 % LAB HEMATOLOGY METHOD 05/16/2025 4:26 AM [facility] Basophils % 1 % LAB HEMATOLOGY METHOD 05/16/2025 4:26 AM [facility] Immature Granulocytes % 1 % LAB HEMATOLOGY METHOD 05/16/2025 4:26 AM [facility] Neutrophils Absolute 5.39 1.60 - 6.10 10*3/uL LAB HEMATOLOGY METHOD 05/16/2025 4:26 AM EST [facility] Lymphocytes Absolute 1.30 1.20 - 3.90 10*3/uL LAB HEMATOLOGY METHOD 05/16/2025 4:26 AM EST [facility] Monocytes Absolute 0.93(H) 0.30 - 0.90 10*3/uL LAB HEMATOLOGY METHOD 05/16/2025 4:26 AM EST [facility] Eosinophils Absolute 0.26 0.00 - 0.50 10*3/uL LAB HEMATOLOGY METHOD 05/16/2025 4:26 AM EST [facility] Basophils Absolute 0.05 0.00 - 0.10 10*3/uL LAB HEMATOLOGY METHOD 05/16/2025 4:26 AM EST [facility] Immature Granulocytes Absolute 0.04 0.00 - 0.06 10*3/uL LAB HEMATOLOGY METHOD 05/16/2025 4:26 AM EST [facility] Blood Venous blood specimen / Unknown Venipuncture / Unknown 05/16/2025 4:08 AM EST 05/16/2025 4:17 AM EST Narrative [facility] - 05/16/2025 4:26 AM EST Therapeutic decision making should be based on absolute values, rather than percentages. us Selin Lee MD LAB BLOOD ORDERABLES Final Re sult [facility] [address] [place] [address] * (ABNORMAL) Magnesium, Plasma (05/16/2025 4:08 AM EST) Magnesium, Plasma 1.8(L) 1.9 - 2.4 mg/dL 05/16/2025 4:48 AM EST [facility] Blood Venous blood specimen / Unknown Venipuncture / Unknown 05/16/2025 4:08 AM EST 05/16/2025 4:16 AM EST us Selin Lee MD LAB BLOOD ORDERABLES Final Re sult [facility] [address] [place] [address] * (ABNORMAL) Basic Metabolic Panel, Plasma (05/16/2025 4:08 AM EST) Glucose, Plasma 168(H) 74 - 99 mg/dL 05/16/2025 4:48 AM EST [facility] BUN, Plasma 19 7 - 21 mg/dL 05/16/2025 4:48 AM EST [facility] Creatinine, Plasma 0.86 0.70 - 1.20 mg/dL 05/16/2025 4:48 AM EST [facility] BUN/Creatinine Ratio 22 05/16/2025 4:48 AM EST [facility] Sodium, Plasma 131(L) 136 - 145 mmol/L 05/16/2025 4:48 AM EST [facility] Potassium, Plasma 3.6 3.6 - 4.9 mmol/L 05/16/2025 4:48 AM EST [facility] Chloride, Plasma 88(L) 97 - 107 mmol/L 05/16/2025 4:48 AM EST [facility] CO2, Plasma 34(H) 22 - 29 mmol/L 05/16/2025 4:48 AM EST [facility] Anion Gap 9 6 - 16 mmol/L 05/16/2025 4:48 AM EST [facility] Total Calcium, Plasma 9.3 8.9 - 10.2 mg/dL 05/16/2025 4:48 AM EST [facility] eGFRcr 107.5 mL/min/1.7 3m*2 05/16/2025 4:48 AM EST [facility] Comment:Reported eGFRcr in m L/min/1.73m2 is based the CKD-EPI 2020 equation that does not use a race coefficient. Blood Venous blood specimen / Unknown Venipuncture / Unknown 05/16/2025 4:08 AM EST 05/16/2025 4:16 AM EST us Selin Lee MD LAB BLOOD ORDERABLES Final Re sult [facility] [address] [place] [address] * Phosphorus, Plasma (05/16/2025 4:08 AM EST) [facility] Phosphorus, Plasma 3.7 2.5 - 4.5 mg/dL 05/16/2025 4:48 AM EST [facility] Blood Venous blood specimen / Unknown Venipuncture / Unknown 05/16/2025 4:08 AM EST 05/16/2025 4:16 AM EST us Selin Lee MD LAB BLOOD ORDERABLES Final Re sult Performing Organization Address City/[facility]/ZIP Co de Phone Number [facility] [address] [place] [address] * (ABNORMAL) POCT glucose meter (05/15/2025 8:00 PM EST) [facility] POCT Glucose 190(H) 74 - [...] 05/15/2025 8:02 PM EST [facility] Insurance Commissioner ID Timo Campbell 8:02 PM EST [facility] Device ID [id number] 05/15/2025 8:02 PM EST [facility] Specimen Type POC Capillary 05/15/2025 8:02 PM EST [facility] Blood Capillary blood specimen / Unknown 05/15/2025 8:00 PM EST 05/15/2025 8:02 PM EST us Selin Lee MD LAB POINT OF CARE TE ST DOCKED DEVICE UNSOLICITED RESULTS Final Result [facility] [address] [place] [address] * (ABNORMAL) POCT glucose meter (05/15/2025 4:52 PM EST) [facility] POCT Glucose 270(H) 74 - 99 mg/dL [...] 05/15/2025 4:53 PM EST [facility] Insurance Commissioner ID Ashish Timjosafat 05/15/2025 4:53 PM EST [facility] Device ID [id number] 05/15/2025 4:53 PM EST [facility] Specimen Type POC Capillary 05/15/2025 4:53 PM EST [facility] Blood Capillary blood specimen / Unknown 05/15/2025 4:52 PM EST 05/15/2025 4:53 PM EST Selin Lee MD LAB POINT OF CARE TE ST DOCKED DEVICE UNSOLICITED RESULTS Final Result Performing Organization Address City/State/[facility] Co de Phone Number [facility] [address] [place] [address] * (ABNORMAL) POCT glucose meter (05/15/2025 12:46 PM EST) [facility] POCT Glucose 233(H) 74 - [...] 05/15/2025 12:48 PM EST [facility] Insurance Commissioner ID Santy Garcia 05/15/2025 12:48 PM EST [facility] Device ID [id number] 05/15/2025 12:48 PM EST [facility] Specimen Type POC Capillary 05/15/2025 12:48 PM EST [facility] Blood Capillary blood specimen / Unknown 05/15/2025 12:46 PM EST 05/15/2025 12:48 PM EST us Selin Lee MD LAB POINT OF CARE TE ST DOCKED DEVICE UNSOLICITED RESULTS Final Result Performing Organization Address [facility] de Phone Number [facility] [address] [place] [address] * (ABNORMAL) POCT glucose meter (05/15/2025 11:31 [...] for testing. Comment 05/15/2025 11:33 AM EST [facility] Insurance Commissioner ID Char Hinojosa 05/15/2025 11:33 AM EST [facility] Device ID [id number] 05/15/2025 11:33 AM EST [facility] Specimen Type POC Capillary 05/15/2025 11:33 AM EST [facility] Blood Capillary blood specimen / Unknown 05/15/2025 11:31 AM EST 05/15/2025 11:33 AM EST us Selin Lee MD LAB POINT OF CARE TE ST DOCKED DEVICE UNSOLICITED RESULTS Final Result Performing Organization Address City/[facility] Co de Phone Number [facility] [address] [place] [address] * (ABNORMAL) POCT glucose meter (05/15/2025 8:12 [...] Comment 05/15/2025 8:14 AM EST [facility] Insurance Commissioner ID Char Hinojosa 05/15/2025 8:14 AM EST [facility] Device ID [id number] 05/15/2025 8:14 AM EST [facility] Specimen Type POC Capillary 05/15/2025 8:14 AM EST [facility] Blood Capillary blood specimen / Unknown 05/15/2025 8:12 AM EST 05/15/2025 8:14 AM EST us Selin Lee MD LAB POINT OF CARE TE ST DOCKED DEVICE UNSOLICITED RESULTS Final Result Performing Organization Address City/State/[facility] Co de Phone Number [facility] [address] [place] [phone] * (ABNORMAL) CBC and Differential (05/15/2025 2:24 AM EST) WBC Count 8.81 3.70 - 10.30 10*3/uL LAB HEMATOLOGY METHOD 05/15/2025 2:41 AM EST [facility] RBC Count 4.49(L) 4.60 - 6.10 10*6/uL LAB HEMATOLOGY METHOD 05/15/2025 2:41 AM EST [facility] HGB 9.9(L) 13.7 - 17.5 g/dL LAB HEMATOLOGY METHOD 05/15/2025 2:41 AM EST [facility] HCT 33.3(L) 40.0 - 51.0 % LAB HEMATOLOGY METHOD 05/15/2025 2:41 AM EST [facility] Platelet Count 286 155 - 369 10*3/uL LAB HEMATOLOGY METHOD 05/15/2025 2:41 AM EST [facility] MCV 74(L) 79 - 98 fL LAB HEMATOLOGY METHOD 05/15/2025 2:41 AM EST [facility] MCH 22.0(L) 26.0 - 32.0 pg LAB HEMATOLOGY METHOD 05/15/2025 2:41 AM EST [facility] MCHC 29.7(L) 30.7 - 35.5 g/dL LAB HEMATOLOGY METHOD 05/15/2025 2:41 AM EST [facility] RDW 17.8(H) 11.5 - 14.5 % LAB HEMATOLOGY METHOD 05/15/2025 2:41 AM [facility] MPV 9.4 8.8 - 12.5 fL LAB HEMATOLOGY METHOD 05/15/2025 2:41 AM [facility] nRBC 0.0 <=0.0 per 100 WBCs LAB HEMATOLOGY METHOD 05/15/2025 2:41 AM [facility] Differential Type Automated LAB HEMATOLOGY METHOD 05/15/2025 2:41 AM [facility] Neutrophils % 71 % LAB HEMATOLOGY METHOD 05/15/2025 2:41 AM [facility] Lymphocytes % 14 % LAB HEMATOLOGY METHOD 05/15/2025 2:41 AM [facility] Monocytes % 11 % LAB HEMATOLOGY METHOD 05/15/2025 2:41 AM [facility] Eosinophils % 3 % LAB HEMATOLOGY METHOD 05/15/2025 2:41 AM [facility] Basophils % 1 % LAB HEMATOLOGY METHOD 05/15/2025 2:41 AM [facility] Immature Granulocytes % 0 % LAB HEMATOLOGY METHOD 05/15/2025 2:41 AM [facility] Neutrophils Absolute 6.25(H) 1.60 - 6.10 10*3/uL LAB HEMATOLOGY METHOD 05/15/2025 2:41 AM [facility] Lymphocytes Absolute 1.27 1.20 - 3.90 10*3/uL LAB HEMATOLOGY METHOD 05/15/2025 2:41 AM [facility] Monocytes Absolute 0.95(H) 0.30 - 0.90 10*3/uL LAB HEMATOLOGY METHOD 05/15/2025 2:41 AM [facility] Eosinophils Absolute 0.27 0.00 - 0.50 10*3/uL LAB HEMATOLOGY METHOD 05/15/2025 2:41 AM [facility] Basophils Absolute 0.04 0.00 - 0.10 10*3/uL LAB HEMATOLOGY METHOD 05/15/2025 2:41 AM [facility] Immature Granulocytes Absolute 0.03 0.00 - 0.06 10*3/uL LAB HEMATOLOGY METHOD 05/15/2025 2:41 AM [facility] Blood Venous blood specimen / Unknown Venipuncture / Unknown 05/15/2025 2:24 AM EST 05/15/2025 2:33 AM EST Narrative [facility] - 05/15/2025 2:41 AM EST Therapeutic decision making should be based on absolute values, rather than percentages. us Selin Lee MD LAB BLOOD ORDERABLES Final Re sult Performing Organization Address [facility] Co de Phone Number [facility] [address] [place] [address] * (ABNORMAL) Magnesium, Plasma (05/15/2025 2:24 AM EST) Magnesium, Plasma 1.8(L) 1.9 - 2.4 mg/dL 05/15/2025 3:03 AM EST [facility] Blood Venous blood specimen / Unknown Venipuncture / Unknown 05/15/2025 2:24 AM EST 05/15/2025 2:32 AM EST us Selin Lee MD LAB BLOOD ORDERABLES Final Re sult Performing Organization Address [facility] Co de Phone Number [facility] [address] [place] [address] * (ABNORMAL) Basic Metabolic Panel, Plasma (05/15/2025 2:24 AM EST) Glucose, Plasma 162(H) 74 - 99 mg/dL 05/15/2025 3:03 AM EST [facility] BUN, Plasma 15 7 - 21 mg/dL 05/15/2025 3:03 AM EST [facility] Creatinine, Plasma 0.91 0.70 - 1.20 mg/dL 05/15/2025 3:03 AM EST [facility] BUN/Creatinine Ratio 16 05/15/2025 3:03 AM EST [facility] Sodium, Plasma 133(L) 136 - 145 mmol/L 05/15/2025 3:03 AM EST [facility] Potassium, Plasma 3.3(L) 3.6 - 4.9 mmol/L 05/15/2025 3:03 AM EST [facility] Chloride, Plasma 87(L) 97 - 107 mmol/L 05/15/2025 3:03 AM EST [facility] CO2, Plasma 37(H) 22 - 29 mmol/L 05/15/2025 3:03 AM EST [facility] Anion Gap 9 6 - 16 mmol/L 05/15/2025 3:03 AM EST [facility] Total Calcium, Plasma 9.2 8.9 - 10.2 mg/dL 05/15/2025 3:03 AM EST [facility] eGFRcr 104.6 mL/min/1.7 3m*2 05/15/2025 3:03 AM EST [facility] Comment:Reported eGFRcr in m L/min/1.73m2 is based the CKD-EPI 2020 equation that does not use a race coefficient. Blood Venous blood specimen / Unknown Venipuncture / Unknown 05/15/2025 2:24 AM EST 05/15/2025 2:32 AM EST Selin Lee MD LAB BLOOD ORDERABLES Final Re sult [facility] [address] [place] [address] * Phosphorus, Plasma (05/15/2025 2:24 AM EST) Phosphorus, Plasma 3.7 2.5 - 4.5 mg/dL 05/15/2025 3:03 AM EST [facility] Blood Venous blood specimen / Unknown Venipuncture / Unknown 05/15/2025 2:24 AM EST 05/15/2025 2:32 AM EST Selin Lee MD LAB BLOOD ORDERABLES Final Re sult [facility] [address] [place] [address] * (ABNORMAL) POCT glucose meter (05/14/2025 8:09 PM EST) POCT Glucose 194(H) 74 - 99 mg/dL 05/14/2025 8:11 PM EST [facility] Comment:Accuracy of a glucos e result [...] Comment 05/14/2025 8:11 PM EST [facility] Insurance Commissioner ID Stella Coleman 05/14/20 8:11 PM EST [facility] Device ID [id number] 05/14/2025 8:11 PM EST [facility] Specimen Type POC Capillary 05/14/2025 8:11 PM EST [facility] Blood Capillary blood specimen / Unknown 05/14/2025 8:09 PM EST 05/14/2025 8:11 PM EST us Selin Lee MD LAB POINT OF CARE TE ST DOCKED DEVICE UNSOLICITED RESULTS Final Result Performing Organization Address City/State/[facility] Co de Phone Number [facility] [address] [place] [address] * (ABNORMAL) POCT glucose meter (05/14/2025 5:10 PM EST) [facility] POCT Glucose 320(H) 74 - 99 mg/dL 05/14/2025 5:13 PM EST [facility] Comment:Accuracy of a glucos e result [...] Comment 05/14/2025 5:13 PM EST [facility] Insurance Commissioner ID Dunia Montgomery 05/14/2025 5:13 PM EST [facility] Device ID [id number] 05/14/2025 5:13 PM EST [facility] Specimen Type POC Capillary 05/14/2025 5:13 PM EST [facility] Blood Capillary blood specimen / Unknown 05/14/2025 5:10 PM EST 05/14/2025 5:13 PM EST us Selin Lee MD LAB POINT OF CARE TE ST DOCKED DEVICE UNSOLICITED RESULTS Final Result Performing Organization Address [facility] Co de Phone Number [facility] [address] [place] [address] * (ABNORMAL) POCT glucose meter (05/14/2025 12:15 PM EST) [facility] POCT Glucose 260(H) 74 - 99 mg/dL [...] 05/14/2025 4:51 PM EST [facility] Insurance Commissioner ID Dunia Montgomery 05/14/2025 4:51 PM EST [facility] Device ID [id number] 05/14/2025 4:51 PM EST [facility] Specimen Type POC Capillary 05/14/2025 4:51 PM EST [facility] Blood Capillary blood specimen / Unknown 05/14/2025 12:15 PM EST 05/14/2025 4:51 PM EST Selin Lee MD LAB POINT OF CARE TE ST DOCKED DEVICE UNSOLICITED RESULTS Final Result Performing Organization Address [facility] de Phone Number [facility] [address] [place] [address] * (ABNORMAL) POCT glucose meter (05/14/2025 8:30 AM EST) [facility] POCT Glucose 321(H) 74 - 99 mg/dL [...] 05/14/2025 8:33 AM EST [facility] Insurance Commissioner ID Dunia Montgomery 05/14/2025 8:33 AM EST [facility] Device ID [id number] 05/14/2025 8:33 AM EST [facility] Specimen Type POC Capillary 05/14/2025 8:33 AM EST [facility] Blood Capillary blood specimen / Unknown 05/14/2025 8:30 AM EST 05/14/2025 8:33 AM EST Selin Lee MD LAB POINT OF CARE TE ST DOCKED DEVICE UNSOLICITED RESULTS Final Result Performing Organization Address City/[facility]/ZIP Co de Phone Number [facility] [address] [place] [address] * (ABNORMAL) POCT glucose meter (05/14/2025 4:49 AM EST) Pathologist [facility] POCT Glucose 306(H) 74 - 99 mg/dL 05/31/2025 3:12 PM EST [facility] Comment:Accuracy of a glucos e result [...] for testing. Comment 05/31/2025 3:12 PM EST [facility] Insurance Commissioner ID Asiya Nix 025 3:12 PM EST [facility] Device ID [id number] 05/31/2025 3:12 PM EST [facility] Specimen Type POC Capillary 05/31/2025 3:12 PM EST [facility] Blood Capillary blood specimen / Unknown 05/14/2025 4:49 AM EST 05/31/2025 3:12 PM EST us Wily Goyal DO LAB POINT OF CARE TE ST DOCKED DEVICE UNSOLICITED RESULTS Final Result Performing Organization Address City/[facility]/ZIP Co de Phone Number [facility] [address] [place] [address] * (ABNORMAL) CBC and Differential (05/14/2025 1:45 AM EDT) WBC Count 7.88 3.70 - 10.30 10*3/uL LAB HEMATOLOGY METHOD 05/14/2025 2:47 AM EST [facility] RBC Count 4.25(L) 4.60 - 6.10 10*6/uL LAB HEMATOLOGY METHOD 05/14/2025 2:47 AM EST [facility] HGB 9.7(L) 13.7 - 17.5 g/dL LAB HEMATOLOGY METHOD 05/14/2025 2:47 AM EST [facility] HCT 31.7(L) 40.0 - 51.0 % LAB HEMATOLOGY METHOD 05/14/2025 2:47 AM EST [facility] Platelet Count 273 155 - 369 10*3/uL LAB HEMATOLOGY METHOD 05/14/2025 2:47 AM EST [facility] MCV 75(L) 79 - 98 fL LAB HEMATOLOGY METHOD 05/14/2025 2:47 AM [facility] MCH 22.8(L) 26.0 - 32.0 pg LAB HEMATOLOGY METHOD 05/14/2025 2:47 AM [facility] MCHC 30.6(L) 30.7 - 35.5 g/dL LAB HEMATOLOGY METHOD 05/14/2025 2:47 AM [facility] RDW 17.9(H) 11.5 - 14.5 % LAB HEMATOLOGY METHOD 05/14/2025 2:47 AM [facility] MPV 9.6 8.8 - 12.5 fL LAB HEMATOLOGY METHOD 05/14/2025 2:47 AM [facility] nRBC 0.0 <=0.0 per 100 WBCs LAB HEMATOLOGY METHOD 05/14/2025 2:47 AM EST [facility] Differential Type Automated LAB HEMATOLOGY METHOD 05/14/2025 2:47 AM [facility] Neutrophils % 66 % LAB HEMATOLOGY METHOD 05/14/2025 2:47 AM [facility] Lymphocytes % 18 % LAB HEMATOLOGY METHOD 05/14/2025 2:47 AM EST [facility] Monocytes % 11 % LAB HEMATOLOGY METHOD 05/14/2025 2:47 AM [facility] Eosinophils % 4 % LAB HEMATOLOGY METHOD 05/14/2025 2:47 AM EST [facility] Basophils % 1 % LAB HEMATOLOGY METHOD 05/14/2025 2:47 AM EST [facility] Immature Granulocytes % 0 % LAB HEMATOLOGY METHOD 05/14/2025 2:47 AM EST [facility] Neutrophils Absolute 5.20 1.60 - 6.10 10*3/uL LAB HEMATOLOGY METHOD 05/14/2025 2:47 AM EST [facility] Lymphocytes Absolute 1.44 1.20 - 3.90 10*3/uL LAB HEMATOLOGY METHOD 05/14/2025 2:47 AM EST [facility] Monocytes Absolute 0.85 0.30 - 0.90 10*3/uL LAB HEMATOLOGY METHOD 05/14/2025 2:47 AM EST [facility] Eosinophils Absolute 0.30 0.00 - 0.50 10*3/uL LAB HEMATOLOGY METHOD 05/14/2025 2:47 AM EST [facility] Basophils Absolute 0.06 0.00 - 0.10 10*3/uL LAB HEMATOLOGY METHOD 05/14/2025 2:47 AM EST [facility] Immature Granulocytes Absolute 0.03 0.00 - 0.06 10*3/uL LAB HEMATOLOGY METHOD 05/14/2025 2:47 AM EST [facility] Blood Venous blood specimen / Unknown Venipuncture / Unknown 05/14/2025 1:45 AM EDT 05/14/2025 2:24 AM EST Narrative [facility] - 05/14/2025 2:47 AM EST Therapeutic decision making should be based on absolute values, rather than percentages. us Selin Lee MD LAB BLOOD ORDERABLES Final Re sult [facility] [address] [place] [address] * (ABNORMAL) Magnesium, Plasma (05/14/2025 1:45 AM EDT) Magnesium, Plasma 1.7(L) 1.9 - 2.4 mg/dL 05/14/2025 2:58 AM EST [facility] Blood Venous blood specimen / Unknown Venipuncture / Unknown 05/14/2025 1:45 AM EDT 05/14/2025 2:25 AM EST us Selin Lee MD LAB BLOOD ORDERABLES Final Re sult [facility] [address] [place] [address] * (ABNORMAL) Basic Metabolic Panel, Plasma (05/14/2025 1:45 AM EDT) Glucose, Plasma 282(H) 74 - 99 mg/dL 05/14/2025 2:58 AM EST [facility] BUN, Plasma 16 7 - 21 mg/dL 05/14/2025 2:58 AM EST [facility] Creatinine, Plasma 0.85 0.70 - 1.20 mg/dL 05/14/2025 2:58 AM EST [facility] BUN/Creatinine Ratio 19 05/14/2025 2:58 AM EST [facility] Sodium, Plasma 132(L) 136 - 145 mmol/L 05/14/2025 2:58 AM EST [facility] Potassium, Plasma 3.5(L) 3.6 - 4.9 mmol/L 05/14/2025 2:58 AM EST [facility] Chloride, Plasma 87(L) 97 - 107 mmol/L 05/14/2025 2:58 AM EST [facility] CO2, Plasma 34(H) 22 - 29 mmol/L 05/14/2025 2:58 AM EST [facility] Anion Gap 11 6 - 16 mmol/L 05/14/2025 2:58 AM EST [facility] Total Calcium, Plasma 9.2 8.9 - 10.2 mg/dL 05/14/2025 2:58 AM EST [facility] eGFRcr 107.9 mL/min/1.7 3m*2 05/14/2025 2:58 AM EST [facility] Comment:Reported eGFRcr in m L/min/1.73m2 is based the CKD-EPI 2020 equation that does not use a race coefficient. Blood Venous blood specimen / Unknown Venipuncture / Unknown 05/14/2025 1:45 AM EDT 05/14/2025 2:25 AM EST Selin Lee MD LAB BLOOD ORDERABLES Final Re sult [facility] [address] [place] [address] * Phosphorus, Plasma (05/14/2025 1:45 AM EDT) Pathologist [facility] Phosphorus, Plasma 3.3 2.5 - 4.5 mg/dL 05/14/2025 2:58 AM EST [facility] Blood Venous blood specimen / Unknown Venipuncture / Unknown 05/14/2025 1:45 AM EDT 05/14/2025 2:25 AM EST us Selin Lee MD LAB BLOOD ORDERABLES Final Re sult Performing Organization Address [facility] Co de Phone Number [facility] [address] [place] [address] * (ABNORMAL) POCT glucose meter (05/13/2025 7:59 PM EDT) [facility] POCT Glucose 257(H) 74 - [...] Comment 05/31/2025 3:12 PM EST [facility] Insurance Commissioner ID Stella Coleman 05/31/20 3:12 PM EST [facility] Device ID [id number] 05/31/2025 3:12 PM EST [facility] Specimen Type POC Capillary 05/31/2025 3:12 PM EST [facility] Blood Capillary blood specimen / Unknown 05/13/2025 7:59 PM EDT 05/31/2025 3:12 PM EST us Wily Goyal DO LAB POINT OF CARE TE ST DOCKED DEVICE UNSOLICITED RESULTS Final Result Performing Organization Address City/[facility]/ZIP Co de Phone Number [facility] [address] [place] [address] * (ABNORMAL) POCT glucose meter (05/13/2025 4:58 PM EDT) Pathologist [facility] POCT Glucose 217(H) 74 - 99 mg/dL [...] Comment 05/13/2025 5:00 PM EDT [facility] Insurance Commissioner ID Priyanka Negrete 05/13/20 5:00 PM EDT [facility] Device ID [id number] 05/13/2025 5:00 PM EDT [facility] Specimen Type POC Capillary 05/13/2025 5:00 PM EDT [facility] Blood Capillary blood specimen / Unknown 05/13/2025 4:58 PM EDT 05/13/2025 5:00 PM EDT us Selin Lee MD LAB POINT OF CARE TE ST DOCKED DEVICE UNSOLICITED RESULTS Final Result Performing Organization Address City/State/[facility] Co de Phone Number [facility] [address] [place] [address] * (ABNORMAL) POCT glucose meter (05/13/2025 11:37 AM EDT) [facility] POCT Glucose 255(H) 74 - [...] 05/13/2025 11:41 AM EDT [facility] Insurance Commissioner ID Priyanka Negrete 05/13/20 11:41 AM EDT [facility] Device ID [id number] 05/13/2025 11:41 AM EDT [facility] Specimen Type POC Capillary 05/13/2025 11:41 AM EDT [facility] Blood Capillary blood specimen / Unknown 05/13/2025 11:37 AM EDT 05/13/2025 11:41 AM EDT Selin Lee MD LAB POINT OF CARE TE ST DOCKED DEVICE UNSOLICITED RESULTS Final Result Performing Organization Address City/[facility]/ZIP Co de Phone Number [facility] [address] [place] [address] * (ABNORMAL) POCT glucose meter (05/13/2025 7:42 AM EDT) POCT Glucose 233(H) 74 - 99 mg/dL 05/13/2025 7:45 AM EDT [email or web address] Comment:Accuracy of a glucos e result [...] for testing. Comment 05/13/2025 7:45 AM EDT [facility] Insurance Commissioner ID Priyanka Negrete 05/13/20 7:45 AM EDT [facility] Device ID [id number] 05/13/2025 7:45 AM EDT [facility] Specimen Type POC Capillary 05/13/2025 7:45 AM EDT [facility] Blood Capillary blood specimen / Unknown 05/13/2025 7:42 AM EDT 05/13/2025 7:45 AM EDT us Selin Lee MD LAB POINT OF CARE TE ST DOCKED DEVICE UNSOLICITED RESULTS Final Result [facility] [address] [place] [address] * (ABNORMAL) CBC and Differential (05/13/2025 3:54 AM EDT) WBC Count 7.92 3.70 - 10.30 10*3/uL LAB HEMATOLOGY METHOD 05/13/2025 4:11 AM EDT [facility] RBC Count 4.40(L) 4.60 - 6.10 10*6/uL LAB HEMATOLOGY METHOD 05/13/2025 4:11 AM EDT [facility] HGB 9.9(L) 13.7 - 17.5 g/dL LAB HEMATOLOGY METHOD 05/13/2025 4:11 AM EDT [facility] HCT 33.0(L) 40.0 - 51.0 % LAB HEMATOLOGY METHOD 05/13/2025 4:11 AM EDT [facility] Platelet Count 276 155 - 369 10*3/uL LAB HEMATOLOGY METHOD 05/13/2025 4:11 AM EDT [facility] MCV 75(L) 79 - 98 fL LAB HEMATOLOGY METHOD 05/13/2025 4:11 AM EDT [facility] MCH 22.5(L) 26.0 - 32.0 pg LAB HEMATOLOGY METHOD 05/13/2025 4:11 AM EDT [facility] MCHC 30.0(L) 30.7 - 35.5 g/dL LAB HEMATOLOGY METHOD 05/13/2025 4:11 AM EDT [facility] RDW 17.8(H) 11.5 - 14.5 % LAB HEMATOLOGY METHOD 05/13/2025 4:11 AM EDT [facility] MPV 9.3 8.8 - 12.5 fL LAB HEMATOLOGY METHOD 05/13/2025 4:11 AM EDT [facility] nRBC 0.0 <=0.0 per 100 WBCs LAB HEMATOLOGY METHOD 05/13/2025 4:11 AM EDT [facility] Differential Type Automated LAB HEMATOLOGY METHOD 05/13/2025 4:11 AM EDT [facility] Neutrophils % 69 % LAB HEMATOLOGY METHOD 05/13/2025 4:11 AM EDT [facility] Lymphocytes % 17 % LAB HEMATOLOGY METHOD 05/13/2025 4:11 AM EDT [facility] Monocytes % 10 % LAB HEMATOLOGY METHOD 05/13/2025 4:11 AM EDT [facility] Eosinophils % 3 % LAB HEMATOLOGY METHOD 05/13/2025 4:11 AM EDT [facility] Basophils % 1 % LAB HEMATOLOGY METHOD 05/13/2025 4:11 AM EDT [facility] Immature Granulocytes % 0 % LAB HEMATOLOGY METHOD 05/13/2025 4:11 AM EDT [facility] Neutrophils Absolute 5.47 1.60 - 6.10 10*3/uL LAB HEMATOLOGY METHOD 05/13/2025 4:11 AM EDT [facility] Lymphocytes Absolute 1.33 1.20 - 3.90 10*3/uL LAB HEMATOLOGY METHOD 05/13/2025 4:11 AM EDT [facility] Monocytes Absolute 0.78 0.30 - 0.90 10*3/uL LAB HEMATOLOGY METHOD 05/13/2025 4:11 AM EDT [facility] Eosinophils Absolute 0.27 0.00 - 0.50 10*3/uL LAB HEMATOLOGY METHOD 05/13/2025 4:11 AM EDT [facility] Basophils Absolute 0.04 0.00 - 0.10 10*3/uL LAB HEMATOLOGY METHOD 05/13/2025 4:11 AM EDT [facility] Immature Granulocytes Absolute 0.03 0.00 - 0.06 10*3/uL LAB HEMATOLOGY METHOD 05/13/2025 4:11 AM EDT [facility] Blood Venous blood specimen / Unknown Venipuncture / Unknown 05/13/2025 3:54 AM EDT 05/13/2025 4:01 AM EDT Narrative [facility] - 05/13/2025 4:11 AM EDT Therapeutic decision making should be based on absolute values, rather than percentages. us Selin Lee MD LAB BLOOD ORDERABLES Final Re sult [facility] [address] [place] [address] * Magnesium, Plasma (05/13/2025 3:54 AM EDT) Magnesium, Plasma 1.9 1.9 - 2.4 mg/dL 05/13/2025 4:28 AM EDT [facility] Blood Venous blood specimen / Unknown Venipuncture / Unknown 05/13/2025 3:54 AM EDT 05/13/2025 4:01 AM EDT us Selin Lee MD LAB BLOOD ORDERABLES Final Re sult [facility] [address] [place] [address] * (ABNORMAL) Basic Metabolic Panel, Plasma (05/13/2025 3:54 AM EDT) Glucose, Plasma 238(H) 74 - 99 mg/dL 05/13/2025 4:28 AM EDT [facility] BUN, Plasma 16 7 - 21 mg/dL 05/13/2025 4:28 AM EDT [facility] Creatinine, Plasma 0.96 0.70 - 1.20 mg/dL 05/13/2025 4:28 AM EDT [facility] BUN/Creatinine Ratio 17 05/13/2025 4:28 AM EDT [facility] Sodium, Plasma 131(L) 136 - 145 mmol/L 05/13/2025 4:28 AM EDT [facility] Potassium, Plasma 3.3(L) 3.6 - 4.9 mmol/L 05/13/2025 4:28 AM EDT [facility] Chloride, Plasma 87(L) 97 - 107 mmol/L 05/13/2025 4:28 AM EDT [facility] CO2, Plasma 37(H) 22 - 29 mmol/L 05/13/2025 4:28 AM EDT [facility] Anion Gap 7 6 - 16 mmol/L 05/13/2025 4:28 AM EDT [facility] Total Calcium, Plasma 9.1 8.9 - 10.2 mg/dL 05/13/2025 4:28 AM EDT [facility] eGFRcr 98.1 mL/min/1.7 3m*2 05/13/2025 4:28 AM EDT [facility] Comment:Reported eGFRcr in m L/min/1.73m2 is based the CKD-EPI 2020 equation that does not use a race coefficient. Blood Venous blood specimen / Unknown Venipuncture / Unknown 05/13/2025 3:54 AM EDT 05/13/2025 4:01 AM EDT us Selin Lee MD LAB BLOOD ORDERABLES Final Re sult Performing Organization Address [facility]/ZIP Co de Phone Number [facility] [address] [place] [address] * Phosphorus, Plasma (05/13/2025 3:54 AM EDT) [facility] Phosphorus, Plasma 3.3 2.5 - 4.5 mg/dL 05/13/2025 4:28 AM EDT [facility] Blood Venous blood specimen / Unknown Venipuncture / Unknown 05/13/2025 3:54 AM EDT 05/13/2025 4:01 AM EDT us Selin Lee MD LAB BLOOD ORDERABLES Final Re sult Performing Organization Address [facility] Co de Phone Number [facility] [address] [place] [address] * (ABNORMAL) POCT glucose meter (05/12/2025 7:40 PM EDT) [facility] POCT Glucose 248(H) 74 - [...] 05/12/2025 7:42 PM EDT [facility] Insurance Commissioner ID Stella Coleman 05/12/20 7:42 PM EDT [facility] Device ID [id number] 05/12/2025 7:42 PM EDT [facility] Specimen Type POC Capillary 05/12/2025 7:42 PM EDT [facility] Blood Capillary blood specimen / Unknown 05/12/2025 7:40 PM EDT 05/12/2025 7:42 PM EDT us Selin Lee MD LAB POINT OF CARE TE ST DOCKED DEVICE UNSOLICITED RESULTS Final Result [facility] [address] [place] [address] * (ABNORMAL) POCT glucose meter (05/12/2025 4:36 PM EDT) [facility] POCT Glucose 235(H) 74 - 99 mg/dL [...] 05/12/2025 4:38 PM EDT [facility] Insurance Commissioner ID Char Hinojosa 05/12/2025 4:38 PM EDT [facility] Device ID [id number] 05/12/2025 4:38 PM EDT [facility] Specimen Type POC Capillary 05/12/2025 4:38 PM EDT [facility] Blood Capillary blood specimen / Unknown 05/12/2025 4:36 PM EDT 05/12/2025 4:38 PM EDT Selin Lee MD LAB POINT OF CARE TE ST DOCKED DEVICE UNSOLICITED RESULTS Final Result [facility] [address] [place] [address] * (ABNORMAL) POCT glucose meter (05/12/2025 11:30 AM EDT) [facility] POCT Glucose 315(H) 74 - 99 mg/dL [...] 05/12/2025 11:32 AM EDT [facility] Insurance Commissioner ID Char Hinojosa 05/12/2025 11:32 AM EDT [facility] Device ID [id number] 05/12/2025 11:32 AM EDT [facility] Specimen Type POC Capillary 05/12/2025 11:32 AM EDT [facility] Blood Capillary blood specimen / Unknown 05/12/2025 11:30 AM EDT 05/12/2025 11:32 AM EDT us Selin Lee MD LAB POINT OF CARE TE ST DOCKED DEVICE UNSOLICITED RESULTS Final Result Performing Organization Address City/[facility]/ZIP Co de Phone Number [facility] [address] [place] [address] * (ABNORMAL) POCT glucose meter (05/12/2025 8:08 AM EDT) Pathologist [facility] POCT Glucose 274(H) 74 - 99 mg/dL [...] Comment 05/12/2025 8:10 AM EDT [facility] Insurance Commissioner ID Char Hinojosa 05/12/2025 8:10 AM EDT [facility] Device ID [id number] 05/12/2025 8:10 AM EDT [facility] Specimen Type POC Capillary 05/12/2025 8:10 AM EDT [facility] Blood Capillary blood specimen / Unknown 05/12/2025 8:08 AM EDT 05/12/2025 8:10 AM EDT us Selin Lee MD LAB POINT OF CARE TE ST DOCKED DEVICE UNSOLICITED RESULTS Final Result Performing Organization Address City/[facility]/ZIP Co de Phone Number [facility] [address] [place] [address] * (ABNORMAL) CBC and Differential (05/12/2025 3:56 AM EDT) WBC Count 7.24 3.70 - 10.30 10*3/uL LAB HEMATOLOGY METHOD 05/12/2025 4:15 AM EDT [facility] RBC Count 4.28(L) 4.60 - 6.10 10*6/uL LAB HEMATOLOGY METHOD 05/12/2025 4:15 AM EDT [facility] HGB 9.4(L) 13.7 - 17.5 g/dL LAB HEMATOLOGY METHOD 05/12/2025 4:15 AM EDT [facility] HCT 31.8(L) 40.0 - 51.0 % LAB HEMATOLOGY METHOD 05/12/2025 4:15 AM EDT [facility] Platelet Count 266 155 - 369 10*3/uL LAB HEMATOLOGY METHOD 05/12/2025 4:15 AM EDT [facility] MCV 74(L) 79 - 98 fL LAB HEMATOLOGY METHOD 05/12/2025 4:15 AM EDT [facility] MCH 22.0(L) 26.0 - 32.0 pg LAB HEMATOLOGY METHOD 05/12/2025 4:15 AM EDT [facility] MCHC 29.6(L) 30.7 - 35.5 g/dL LAB HEMATOLOGY METHOD 05/12/2025 4:15 AM EDT [facility] RDW 18.0(H) 11.5 - 14.5 % LAB HEMATOLOGY METHOD 05/12/2025 4:15 AM EDT [facility] MPV 9.6 8.8 - 12.5 fL LAB HEMATOLOGY METHOD 05/12/2025 4:15 AM EDT [facility] nRBC 0.0 <=0.0 per 100 WBCs LAB HEMATOLOGY METHOD 05/12/2025 4:15 AM EDT [facility] Differential Type Automated LAB HEMATOLOGY METHOD 05/12/2025 4:15 AM EDT [facility] Neutrophils % 71 % LAB HEMATOLOGY METHOD 05/12/2025 4:15 AM EDT [facility] Lymphocytes % 16 % LAB HEMATOLOGY METHOD 05/12/2025 4:15 AM EDT [facility] Monocytes % 9 % LAB HEMATOLOGY METHOD 05/12/2025 4:15 AM EDT [facility] Eosinophils % 3 % LAB HEMATOLOGY METHOD 05/12/2025 4:15 AM EDT [facility] Basophils % 1 % LAB HEMATOLOGY METHOD 05/12/2025 4:15 AM EDT [facility] Immature Granulocytes % 0 % LAB HEMATOLOGY METHOD 05/12/2025 4:15 AM EDT [facility] Neutrophils Absolute 5.14 1.60 - 6.10 10*3/uL LAB HEMATOLOGY METHOD 05/12/2025 4:15 AM EDT [facility] Lymphocytes Absolute 1.15(L) 1.20 - 3.90 10*3/uL LAB HEMATOLOGY METHOD 05/12/2025 4:15 AM EDT [facility] Monocytes Absolute 0.66 0.30 - 0.90 10*3/uL LAB HEMATOLOGY METHOD 05/12/2025 4:15 AM EDT [facility] Eosinophils Absolute 0.22 0.00 - 0.50 10*3/uL LAB HEMATOLOGY METHOD 05/12/2025 4:15 AM EDT [facility] Basophils Absolute 0.05 0.00 - 0.10 10*3/uL LAB HEMATOLOGY METHOD 05/12/2025 4:15 AM EDT [facility] Immature Granulocytes Absolute 0.02 0.00 - 0.06 10*3/uL LAB HEMATOLOGY METHOD 05/12/2025 4:15 AM EDT [facility] Blood Venous blood specimen / Unknown Venipuncture / Unknown 05/12/2025 3:56 AM EDT 05/12/2025 4:03 AM EDT Narrative [facility] - 05/12/2025 4:15 AM EDT Therapeutic decision making should be based on absolute values, rather than percentages. us Selin Lee MD LAB BLOOD ORDERABLES Final Re sult [facility] [address] [place] [address] * (ABNORMAL) Magnesium, Plasma (05/12/2025 3:56 AM EDT) Magnesium, Plasma 1.7(L) 1.9 - 2.4 mg/dL 05/12/2025 4:36 AM EDT [facility] Blood Venous blood specimen / Unknown Venipuncture / Unknown 05/12/2025 3:56 AM EDT 05/12/2025 4:03 AM EDT us Selin Lee MD LAB BLOOD ORDERABLES Final Re sult [facility] [address] [place] [address] * (ABNORMAL) Basic Metabolic Panel, Plasma (05/12/2025 3:56 AM EDT) Glucose, Plasma 383(H) 74 - 99 mg/dL 05/12/2025 4:36 AM EDT [facility] BUN, Plasma 18 7 - 21 mg/dL 05/12/2025 4:36 AM EDT [facility] Creatinine, Plasma 0.86 0.70 - 1.20 mg/dL 05/12/2025 4:36 AM EDT [facility] BUN/Creatinine Ratio 21 05/12/2025 4:36 AM EDT [facility] Sodium, Plasma 130(L) 136 - 145 mmol/L 05/12/2025 4:36 AM EDT [facility] Potassium, Plasma 3.2(L) 3.6 - 4.9 mmol/L 05/12/2025 4:36 AM EDT [facility] Chloride, Plasma 85(L) 97 - 107 mmol/L 05/12/2025 4:36 AM EDT [facility] CO2, Plasma 36(H) 22 - 29 mmol/L 05/12/2025 4:36 AM EDT [facility] Anion Gap 9 6 - 16 mmol/L 05/12/2025 4:36 AM EDT [facility] Total Calcium, Plasma 8.9 8.9 - 10.2 mg/dL 05/12/2025 4:36 AM EDT [facility] eGFRcr 107.5 mL/min/1.7 3m*2 05/12/2025 4:36 AM EDT [facility] Comment:Reported eGFRcr in m L/min/1.73m2 is based the CKD-EPI 2020 equation that does not use a race coefficient. Blood Venous blood specimen / Unknown Venipuncture / Unknown 05/12/2025 3:56 AM EDT 05/12/2025 4:03 AM EDT us Selin Lee MD LAB BLOOD ORDERABLES Final Re sult Performing Organization Address City/[facility]/ZIP Co de Phone Number [facility] [address] [place] [address] * Phosphorus, Plasma (05/12/2025 3:56 AM EDT) [facility] Phosphorus, Plasma 2.8 2.5 - 4.5 mg/dL 05/12/2025 4:36 AM EDT [facility] Blood Venous blood specimen / Unknown Venipuncture / Unknown 05/12/2025 3:56 AM EDT 05/12/2025 4:03 AM EDT us Selin Lee MD LAB BLOOD ORDERABLES Final Re sult Performing Organization Address [facility] Co de Phone Number [facility] [address] [place] [address] * (ABNORMAL) POCT glucose meter (05/12/2025 3:11 AM EDT) [facility] POCT Glucose 348(H) 74 - [...] 05/12/2025 3:13 AM EDT [facility] Insurance Commissioner ID Mathew Edshuterikijosafat 05/12/2025 3:13 AM EDT [facility] Device ID [id number] 05/12/2025 3:13 AM EDT [facility] Specimen Type POC Capillary 05/12/2025 3:13 AM EDT [facility] Blood Capillary blood specimen / Unknown 05/12/2025 3:11 AM EDT 05/12/2025 3:13 AM EDT us Selin Lee MD LAB POINT OF CARE TE ST DOCKED DEVICE UNSOLICITED RESULTS Final Result Performing Organization Address City/[facility] Co de Phone Number [facility] [address] [place] [address] * (ABNORMAL) POCT glucose meter (05/11/2025 7:57 PM EDT) Pathologist [facility] POCT Glucose 272(H) 74 - 99 mg/dL [...] Comment 05/11/2025 8:02 PM EDT [facility] Insurance Commissioner ID Mathew Edshuterikia 05/11/2025 8:02 PM EDT [facility] Device ID [id number] 05/11/2025 8:02 PM EDT [facility] Specimen Type POC Capillary 05/11/2025 8:02 PM EDT [facility] Blood Capillary blood specimen / Unknown 05/11/2025 7:57 PM EDT 05/11/2025 8:02 PM EDT us Selin Lee MD LAB POINT OF CARE TE ST DOCKED DEVICE UNSOLICITED RESULTS Final Result Performing Organization Address [facility] Co de Phone Number [facility] [address] [place] [address] * (ABNORMAL) POCT glucose meter (05/11/2025 5:05 PM EDT) [facility] POCT Glucose 258(H) 74 - [...] Comment 05/11/2025 5:07 PM EDT [facility] Insurance Commissioner ID Char Hinojosa 05/11/2025 5:07 PM EDT [facility] Device ID [id number] 05/11/2025 5:07 PM EDT [facility] Specimen Type POC Capillary 05/11/2025 5:07 PM EDT [facility] Blood Capillary blood specimen / Unknown 05/11/2025 5:05 PM EDT 05/11/2025 5:07 PM EDT us Selin Lee MD LAB POINT OF CARE TE ST DOCKED DEVICE UNSOLICITED RESULTS Final Result Performing Organization Address City/[facility] Co de Phone Number [facility] [address] [place] [address] * (ABNORMAL) POCT glucose meter (05/11/2025 12:13 PM EDT) [facility] POCT Glucose 240(H) 74 - 99 mg/dL 05/11/2025 12:15 PM EDT [facility] Comment:Accuracy of a [...] Comment 05/11/2025 12:15 PM EDT [facility] Insurance Commissioner ID Char Hinojosa 05/11/2025 12:15 PM EDT [facility] Device ID [id number] 05/11/2025 12:15 PM EDT [facility] Specimen Type POC Capillary 05/11/2025 12:15 PM EDT [facility] Blood Capillary blood specimen / Unknown 05/11/2025 12:13 PM EDT 05/11/2025 12:15 PM EDT us Selin Lee MD LAB POINT OF CARE TE ST DOCKED DEVICE UNSOLICITED RESULTS Final Result Performing Organization Address City/[facility]/ZIP Co de Phone Number HEALTHCARE LAB [address] [place] [address] * (ABNORMAL) POCT glucose meter (05/11/2025 7:57 [...] Comment 05/11/2025 7:59 AM EDT HEALTHCARE LAB Insurance Commissioner ID Char Hinojosa 05/11/2025 7:59 AM EDT HEALTHCARE LAB Device ID [id number] 05/11/2025 7:59 AM EDT HEALTHCARE LAB Specimen Type POC Capillary 05/11/2025 7:59 AM EDT HEALTHCARE LAB Blood Capillary blood specimen / Unknown 05/11/2025 7:57 AM EDT 05/11/2025 7:59 AM EDT us Selin Lee MD LAB POINT OF CARE TE ST DOCKED DEVICE UNSOLICITED RESULTS Final Result Performing Organization Address City/State/[facility] Co de Phone Number HEALTHCARE LAB [address] [place] [address] * ECG Adult (05/11/2025 6:11 AM EDT) Pathologist [facility] EKG DIAGNOSIS CLASS Abnormal MUSE ECG Ventricular Rate 59 BPM MUSE ECG Atrial Rate 59 BPM MUSE ECG OK Interval 176 ms MUSE ECG QRSD Interval 160 ms MUSE ECG QT Interval 520 ms MUSE ECG QTC Interval 514 ms MUSE ECG P [place] 21 degrees MUSE ECG R [place] -32 degrees MUSE ECG T Wave [place] -9 degrees MUSE ECG Diagnosis Sinus bradycardia [...] ECG ORDERABLES Final Result Performing Organization Address [facility] Co de Phone Number MUSE ECG * (ABNORMAL) POCT glucose meter (05/11/2025 3:42 AM EDT) Pathologist [facility] POCT Glucose 336(H) 74 - 99 mg/dL [...] Comment 05/11/2025 3:45 AM EDT HEALTHCARE LAB Insurance Commissioner ID Kaylin Barron 05/11/2025 3:45 AM EDT HEALTHCARE LAB Device ID [id number] 05/11/2025 3:45 AM EDT HEALTHCARE LAB Specimen Type POC Capillary 05/11/2025 3:45 AM EDT [facility] Blood Capillary blood specimen / Unknown 05/11/2025 3:42 AM EDT 05/11/2025 3:45 AM EDT us Selin Lee MD LAB POINT OF CARE TE ST DOCKED DEVICE UNSOLICITED RESULTS Final Result Performing Organization Address [facility] Co de Phone Number [facility] [address] [place] [address] * (ABNORMAL) CBC and Differential (05/11/2025 3:24 AM EDT) Pathologist [facility] WBC Count 6.72 3.70 - 10.30 10*3/uL LAB HEMATOLOGY METHOD 05/11/2025 3:42 AM EDT [facility] RBC Count 4.13(L) 4.60 - 6.10 10*6/uL LAB HEMATOLOGY METHOD 05/11/2025 3:42 AM EDT [facility] HGB 9.5(L) 13.7 - 17.5 g/dL LAB HEMATOLOGY METHOD 05/11/2025 3:42 AM EDT [facility] HCT 31.1(L) 40.0 - 51.0 % LAB HEMATOLOGY METHOD 05/11/2025 3:42 AM EDT [facility] Platelet Count 253 155 - 369 10*3/uL LAB HEMATOLOGY METHOD 05/11/2025 3:42 AM EDT [facility] MCV 75(L) 79 - 98 fL LAB HEMATOLOGY METHOD 05/11/2025 3:42 AM EDT [facility] MCH 23.0(L) 26.0 - 32.0 pg LAB HEMATOLOGY METHOD 05/11/2025 3:42 AM EDT [facility] MCHC 30.5(L) 30.7 - 35.5 g/dL LAB HEMATOLOGY METHOD 05/11/2025 3:42 AM EDT [facility] RDW 17.8(H) 11.5 - 14.5 % LAB HEMATOLOGY METHOD 05/11/2025 3:42 AM EDT [facility] MPV 9.5 8.8 - 12.5 fL LAB HEMATOLOGY METHOD 05/11/2025 3:42 AM EDT [facility] nRBC 0.0 <=0.0 per 100 WBCs LAB HEMATOLOGY METHOD 05/11/2025 3:42 AM EDT [facility] Differential Type Automated LAB HEMATOLOGY METHOD 05/11/2025 3:42 AM EDT [facility] Neutrophils % 68 % LAB HEMATOLOGY METHOD 05/11/2025 3:42 AM EDT [facility] Lymphocytes % 17 % LAB HEMATOLOGY METHOD 05/11/2025 3:42 AM EDT [facility] Monocytes % 11 % LAB HEMATOLOGY METHOD 05/11/2025 3:42 AM EDT [facility] Eosinophils % 3 % LAB HEMATOLOGY METHOD 05/11/2025 3:42 AM EDT [facility] Basophils % 1 % LAB HEMATOLOGY METHOD 05/11/2025 3:42 AM EDT [facility] Immature Granulocytes % 0 % LAB HEMATOLOGY METHOD 05/11/2025 3:42 AM EDT [facility] Neutrophils Absolute 4.61 1.60 - 6.10 10*3/uL LAB HEMATOLOGY METHOD 05/11/2025 3:42 AM EDT [facility] Lymphocytes Absolute 1.11(L) 1.20 - 3.90 10*3/uL LAB HEMATOLOGY METHOD 05/11/2025 3:42 AM EDT [facility] Monocytes Absolute 0.72 0.30 - 0.90 10*3/uL LAB HEMATOLOGY METHOD 05/11/2025 3:42 AM EDT [facility] Eosinophils Absolute 0.21 0.00 - 0.50 10*3/uL LAB HEMATOLOGY METHOD 05/11/2025 3:42 AM EDT [facility] Basophils Absolute 0.05 0.00 - 0.10 10*3/uL LAB HEMATOLOGY METHOD 05/11/2025 3:42 AM EDT [facility] Immature Granulocytes Absolute 0.02 0.00 - 0.06 10*3/uL LAB HEMATOLOGY METHOD 05/11/2025 3:42 AM EDT [facility] Blood Venous blood specimen / Unknown Venipuncture / Unknown 05/11/2025 3:24 AM EDT 05/11/2025 3:30 AM EDT Narrative [facility] - 05/11/2025 3:42 AM EDT Therapeutic decision making should be based on absolute values, rather than percentages. us Selin Lee MD LAB BLOOD ORDERABLES Final Re sult Performing Organization Address [facility] Co de Phone Number [facility] [address] [place] [address] * (ABNORMAL) Magnesium, Plasma (05/11/2025 3:24 AM EDT) Magnesium, Plasma 1.8(L) 1.9 - 2.4 mg/dL 05/11/2025 3:58 AM EDT [facility] Blood Venous blood specimen / Unknown Venipuncture / Unknown 05/11/2025 3:24 AM EDT 05/11/2025 3:30 AM EDT us Selin Lee MD LAB BLOOD ORDERABLES Final Re sult Performing Organization Address City/[facility]/ZIP Co de Phone Number [facility] [address] [place] [address] * (ABNORMAL) Basic Metabolic Panel, Plasma (05/11/2025 3:24 AM EDT) Glucose, Plasma 338(H) 74 - 99 mg/dL 05/11/2025 3:58 AM EDT [facility] BUN, Plasma 18 7 - 21 mg/dL 05/11/2025 3:58 AM EDT [facility] Creatinine, Plasma 0.86 0.70 - 1.20 mg/dL 05/11/2025 3:58 AM EDT [facility] BUN/Creatinine Ratio 21 05/11/2025 3:58 AM EDT [facility] Sodium, Plasma 131(L) 136 - 145 mmol/L 05/11/2025 3:58 AM EDT [facility] Potassium, Plasma 3.2(L) 3.6 - 4.9 mmol/L 05/11/2025 3:58 AM EDT [facility] Chloride, Plasma 85(L) 97 - 107 mmol/L 05/11/2025 3:58 AM EDT [facility] CO2, Plasma 39(H) 22 - 29 mmol/L 05/11/2025 3:58 AM EDT [facility] Anion Gap 7 6 - 16 mmol/L 05/11/2025 3:58 AM EDT [facility] Total Calcium, Plasma 9.1 8.9 - 10.2 mg/dL 05/11/2025 3:58 AM EDT [facility] eGFRcr 107.5 mL/min/1.7 3m*2 05/11/2025 3:58 AM EDT [facility] Comment:Reported eGFRcr in m L/min/1.73m2 is based the CKD-EPI 2020 equation that does not use a race coefficient. Blood Venous blood specimen / Unknown Venipuncture / Unknown 05/11/2025 3:24 AM EDT 05/11/2025 3:30 AM EDT us Selin Lee MD LAB BLOOD ORDERABLES Final Re sult [facility] [address] [place] [address] * Phosphorus, Plasma (05/11/2025 3:24 AM EDT) [facility] Phosphorus, Plasma 3.1 2.5 - 4.5 mg/dL 05/11/2025 3:58 AM EDT [facility] Blood Venous blood specimen / Unknown Venipuncture / Unknown 05/11/2025 3:24 AM EDT 05/11/2025 3:30 AM EDT us Selin Lee MD LAB BLOOD ORDERABLES Final Re sult Performing Organization Address City/[facility]/ZIP Co de Phone Number [facility] [address] [place] [address] * (ABNORMAL) POCT glucose meter (05/10/2025 7:07 PM EDT) [facility] POCT Glucose 398(H) 74 - [...] 05/10/2025 7:10 PM EDT [facility] Insurance Commissioner ID Char Hinojosa 05/10/2025 7:10 PM EDT [facility] Device ID [id number] 05/10/2025 7:10 PM EDT [facility] Specimen Type POC Capillary 05/10/2025 7:10 PM EDT [facility] Blood Capillary blood specimen / Unknown 05/10/2025 7:07 PM EDT 05/10/2025 7:10 PM EDT us Selin Lee MD LAB POINT OF CARE TE ST DOCKED DEVICE UNSOLICITED RESULTS Final Result Performing Organization Address City/[facility]/ZIP Co de Phone Number [facility] [address] [place] [address] * (ABNORMAL) POCT glucose meter (05/10/2025 4:55 PM EDT) [facility] POCT Glucose 418(H) 74 - 99 mg/dL 05/10/2025 4:57 PM EDT [facility] Comment:Accuracy of a [...] Comment 05/10/2025 4:57 PM EDT [facility] Insurance Commissioner ID Char Hinojosa 05/10/2025 4:57 PM EDT [facility] Device ID [id number] 05/10/2025 4:57 PM EDT [facility] Specimen Type POC Capillary 05/10/2025 4:57 PM EDT [facility] Blood Capillary blood specimen / Unknown 05/10/2025 4:55 PM EDT 05/10/2025 4:57 PM EDT Selin Lee MD LAB POINT OF CARE TE ST DOCKED DEVICE UNSOLICITED RESULTS Final Result [facility] [address] [place] [address] * (ABNORMAL) POCT glucose meter (05/10/2025 11:41 AM EDT) [facility] POCT Glucose 348(H) 74 - 99 mg/dL 05/10/2025 11:43 AM EDT [facility] Comment:Accuracy of a [...] Comment 05/10/2025 11:43 AM EDT [facility] Insurance Commissioner ID Char Hinojosa 05/10/2025 11:43 AM EDT [facility] Device ID [id number] 05/10/2025 11:43 AM EDT [facility] Specimen Type POC Capillary 05/10/2025 11:43 AM EDT [facility] Blood Capillary blood specimen / Unknown 05/10/2025 11:41 AM EDT 05/10/2025 11:43 AM EDT Selin Lee MD LAB POINT OF CARE TE ST DOCKED DEVICE UNSOLICITED RESULTS Final Result Performing Organization Address City/[facility]/ZIP Co de Phone Number [facility] [address] [place] [address] * ECG 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/2025 11:20 AM EDT) EKG DIAGNOSIS CLASS Abnormal MUSE ECG Ventricular Rate 65 BPM MUSE ECG Atrial Rate 65 BPM MUSE ECG OK Interval 198 ms MUSE ECG QRSD Interval 154 ms MUSE ECG QT Interval 508 ms MUSE ECG QTC Interval 528 ms MUSE ECG P [place] 66 degrees MUSE ECG R [place] -39 degrees MUSE ECG T Wave [place] -16 degrees MUSE ECG Diagnosis Normal sinus rhythm with sinus arrhythmia MUSE ECG Diagnosis Left axis deviation MUSE ECG Diagnosis Right bundle branch block MUSE ECG Diagnosis Minimal voltage criteria for LVH, may be normal variant ( R in aVL ) MUSE ECG Diagnosis Abnormal ECG MUSE ECG Diagnosis MUSE ECG Diagnosis Confirmed by Manas Mccauley ([id number]) on 05/10/2025 3:20:48 PM MUSE ECG 05/10/2025 11:2 0 AM EDT 05/10/2025 3:20 PM EDT Selin Lee MD ECG ORDERABLES Final Result Performing Organization Address [facility] Co de Phone Number MUSE ECG * (ABNORMAL) POCT glucose meter (05/10/2025 7:30 AM EDT) [facility] POCT Glucose 332(H) 74 - 99 mg/dL 05/10/2025 7:33 AM EDT [facility] Comment:Accuracy of a glucos e result [...] Comment 05/10/2025 7:33 AM EDT [facility] Insurance Commissioner ID Char Hinojosa 05/10/2025 7:33 AM EDT [facility] Device ID [id number] 05/10/2025 7:33 AM EDT [facility] Specimen Type POC Capillary 05/10/2025 7:33 AM EDT [facility] Blood Capillary blood specimen / Unknown 05/10/2025 7:30 AM EDT 05/10/2025 7:33 AM EDT us Selin Lee MD LAB POINT OF CARE TE ST DOCKED DEVICE UNSOLICITED RESULTS Final Result [facility] [address] [place] [address] * ECG 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/2025 6:14 AM EDT) EKG DIAGNOSIS CLASS Abnormal MUSE ECG Ventricular Rate 56 BPM MUSE ECG Atrial Rate 56 BPM MUSE ECG OK Interval 196 ms MUSE ECG QRSD Interval 164 ms MUSE ECG QT Interval 508 ms MUSE ECG QTC Interval 490 ms MUSE ECG P [place] 74 degrees MUSE ECG R [place] -33 degrees MUSE ECG T Wave [place] -10 degrees MUSE ECG Diagnosis Sinus bradycardia with sinus arrhythmia MUSE ECG Diagnosis Left axis deviation MUSE ECG Diagnosis Right bundle branch block MUSE ECG Diagnosis T wave abnormality, consider lateral ischemia MUSE ECG Diagnosis Abnormal ECG MUSE ECG Diagnosis MUSE ECG Diagnosis Confirmed by Manas Mccauley ([id number]) on 05/10/2025 2:45:37 PM MUSE ECG 05/10/2025 [...] Comment 05/10/2025 4:02 AM EDT [facility] Insurance Commissioner ID Maribell Saeed 4:02 AM EDT [facility] Device ID [id number] 05/10/2025 4:02 AM EDT [facility] Specimen Type POC Capillary 05/10/2025 4:02 AM EDT [facility] Blood Capillary blood specimen / Unknown 05/10/2025 4:00 AM EDT 05/10/2025 4:02 AM EDT Diane Guzman MD LAB POINT OF CARE T EST DOCKED DEVICE UNSOLICITED RESULTS Final Result Performing Organization Address City/State/[facility] Co de Phone Number [facility] [address] [place] [address] * (ABNORMAL) POCT glucose meter (05/09/2025 8:37 PM EDT) [facility] POCT Glucose 296(H) 74 - [...] Comment 05/09/2025 8:39 PM EDT [facility] Insurance Commissioner ID Maribell Saeed 8:39 PM EDT [facility] Device ID [id number] 05/09/2025 8:39 PM EDT [facility] Specimen Type POC Capillary 05/09/2025 8:39 PM EDT [facility] Blood Capillary blood specimen / Unknown 05/09/2025 8:37 PM EDT 05/09/2025 8:39 PM EDT us Diane Guzman MD LAB POINT OF CARE T EST DOCKED DEVICE UNSOLICITED RESULTS Final Result [facility] [address] [place] [address] * Magnesium (05/09/2025 5:54 PM EDT) Pathologist [facility] Magnesium, Plasma 1.9 1.9 - 2.4 mg/dL 05/09/2025 6:56 PM EDT [facility] Blood Venous blood specimen / Unknown Venipuncture / Unknown 05/09/2025 5:54 PM EDT 05/09/2025 6:25 PM EDT us Selin Lee MD LAB BLOOD ORDERABLES Final Re sult Performing Organization Address [facility]/ZIP Co de Phone Number [facility] [address] [place] [address] * (ABNORMAL) Basic metabolic panel (05/09/2025 5:54 PM EDT) Pathologist [facility] Glucose, Plasma 416(H) 74 - 99 mg/dL 05/09/2025 6:56 PM EDT [facility] BUN, Plasma 17 7 - 21 mg/dL 05/09/2025 6:56 PM EDT [facility] Creatinine, Plasma 0.81 0.70 - 1.20 mg/dL 05/09/2025 6:56 PM EDT [facility] BUN/Creatinine Ratio 21 05/09/2025 6:56 PM EDT [facility] Sodium, Plasma 130(L) 136 - 145 mmol/L 05/09/2025 6:56 PM EDT [facility] Potassium, Plasma 3.1(L) 3.6 - 4.9 mmol/L 05/09/2025 6:56 PM EDT [facility] Chloride, Plasma 84(L) 97 - 107 mmol/L 05/09/2025 6:56 PM EDT [facility] CO2, Plasma 35(H) 22 - 29 mmol/L 05/09/2025 6:56 PM EDT [facility] Anion Gap 11 6 - 16 mmol/L 05/09/2025 6:56 PM EDT [facility] Total Calcium, Plasma 9.1 8.9 - 10.2 mg/dL 05/09/2025 6:56 PM EDT [facility] eGFRcr 109.4 mL/min/1.7 3m*2 05/09/2025 6:56 PM EDT [facility] Comment:Reported eGFRcr in m L/min/1.73m2 is based the CKD-EPI 2020 equation that does not use a race coefficient. Blood Venous blood specimen / Unknown Venipuncture / Unknown 05/09/2025 5:54 PM EDT 05/09/2025 6:25 PM EDT us Selin Lee MD LAB BLOOD ORDERABLES Final Re sult Performing Organization Address City/[facility] Co de Phone Number [facility] [address] [place] [address] * (ABNORMAL) POCT glucose meter (05/09/2025 5:17 [...] 05/09/2025 5:20 PM EDT [facility] Insurance Commissioner ID Char Hinojosa 05/09/2025 5:20 PM EDT [facility] LAB Device ID [id number] 05/09/2025 5:20 PM EDT [facility] Specimen Type POC Capillary 05/09/2025 5:20 PM EDT [facility] Blood Capillary blood specimen / Unknown 05/09/2025 5:17 PM EDT 05/09/2025 5:20 PM EDT us Diane Guzman MD LAB POINT OF CARE T EST DOCKED DEVICE UNSOLICITED RESULTS Final Result Performing Organization Address City/[facility]/ZIP Co de Phone Number [facility] [address] [place] [address] * ECG Adult (05/09/2025 12:34 PM EDT) EKG DIAGNOSIS CLASS Abnormal MUSE ECG Ventricular Rate 75 BPM MUSE ECG Atrial Rate 75 BPM MUSE ECG OK Interval 176 ms MUSE ECG QRSD Interval 164 ms MUSE ECG QT Interval 454 ms MUSE ECG QTC Interval 506 ms MUSE ECG P [place] 70 degrees MUSE ECG R [place] -38 degrees MUSE ECG T Wave [place] 2 degrees MUSE ECG Diagnosis Normal sinus rhythm MUSE ECG Diagnosis Left axis deviation MUSE ECG Diagnosis Right bundle branch block MUSE ECG Diagnosis Minimal voltage criteria for LVH, may be normal variant ( R in aVL ) MUSE ECG Diagnosis T wave abnormality, consider lateral ischemia MUSE ECG Diagnosis Abnormal ECG MUSE ECG Diagnosis MUSE ECG Diagnosis Confirmed by Garrett Robles ([id number]) on 05/09/2025 2:20:08 PM MUSE ECG 05/09/2025 12:3 4 PM EDT 05/09/2025 2:20 PM EDT Selin Lee MD ECG ORDERABLES Final Result MUSE ECG * (ABNORMAL) POCT glucose meter (05/09/2025 12:25 PM EDT) Pathologist [facility] POCT Glucose 283(H) 74 - 99 mg/dL [...] 05/09/2025 12:27 PM EDT [facility] Insurance Commissioner ID Dunia Montgomery 05/09/2025 12:27 PM EDT [facility] LAB Device ID [id number] 05/09/2025 12:27 PM EDT [facility] Specimen Type POC Capillary 05/09/2025 12:27 PM EDT [facility] Blood Capillary blood specimen / Unknown 05/09/2025 12:25 PM EDT 05/09/2025 12:27 PM EDT Diane Guzman MD LAB POINT OF CARE T EST DOCKED DEVICE UNSOLICITED RESULTS Final Result Performing Organization Address [facility] de Phone Number [facility] [address] [place] [address] * (ABNORMAL) POCT glucose meter (05/09/2025 7:52 [...] Comment 05/09/2025 7:54 AM EDT [facility] Insurance Commissioner ID Char Hinojosa 05/09/2025 7:54 AM EDT [facility] Device ID [id number] 05/09/2025 7:54 AM EDT [facility] Specimen Type POC Capillary 05/09/2025 7:54 AM EDT [facility] Blood Capillary blood specimen / Unknown 05/09/2025 7:52 AM EDT 05/09/2025 7:54 AM EDT Diane Guzman MD LAB POINT OF CARE T EST DOCKED DEVICE UNSOLICITED RESULTS Final Result Performing Organization Address City/[facility] Co de Phone Number [facility] [address] [place] [address] * (ABNORMAL) POCT glucose meter (05/08/2025 11:54 [...] Comment 05/08/2025 11:56 PM EDT [facility] Insurance Commissioner ID Kaylin Barron 05/08/2025 11:56 PM EDT [facility] Device ID [id number] 05/08/2025 11:56 PM EDT [facility] Specimen Type POC Capillary 05/08/2025 11:56 PM EDT [facility] Blood Capillary blood specimen / Unknown 05/08/2025 11:54 PM EDT 05/08/2025 11:56 PM EDT us Diane Guzman MD LAB POINT OF CARE T EST DOCKED DEVICE UNSOLICITED RESULTS Final Result Performing Organization Address City/[facility] Co de Phone Number [facility] [address] [place] [address] * (ABNORMAL) POCT glucose meter (05/08/2025 7:33 PM EDT) [facility] POCT Glucose 310(H) 74 - [...] Comment 05/08/2025 7:35 PM EDT [facility] Insurance Commissioner ID Kaylin Barron 05/08/2025 7:35 PM EDT [facility] Device ID [id number] 05/08/2025 7:35 PM EDT [facility] Specimen Type POC Capillary 05/08/2025 7:35 PM EDT [facility] Blood Capillary blood specimen / Unknown 05/08/2025 7:33 PM EDT 05/08/2025 7:35 PM EDT us Diane Guzman MD LAB POINT OF CARE T EST DOCKED DEVICE UNSOLICITED RESULTS Final Result [facility] [address] [place] [address] * (ABNORMAL) POCT glucose meter (05/08/2025 5:00 PM EDT) [facility] POCT Glucose 347(H) 74 - 99 mg/dL [...] 05/08/2025 5:02 PM EDT [facility] Insurance Commissioner ID Char Hinojosa 05/08/2025 5:02 PM EDT [facility] Device ID [id number] 05/08/2025 5:02 PM EDT [facility] Specimen Type POC Capillary 05/08/2025 5:02 PM EDT [facility] Blood Capillary blood specimen / Unknown 05/08/2025 5:00 PM EDT 05/08/2025 5:02 PM EDT Diane Guzman MD LAB POINT OF CARE T EST DOCKED DEVICE UNSOLICITED RESULTS Final Result [facility] [address] [place] [address] * (ABNORMAL) POCT glucose meter (05/08/2025 11:42 AM EDT) [facility] POCT Glucose 298(H) 74 - 99 mg/dL [...] 05/08/2025 11:44 AM EDT [facility] Insurance Commissioner ID Char Hinojosa 05/08/2025 11:44 AM EDT [facility] Device ID [id number] 05/08/2025 11:44 AM EDT [facility] Specimen Type POC Capillary 05/08/2025 11:44 AM EDT [facility] Blood Capillary blood specimen / Unknown 05/08/2025 11:42 AM EDT 05/08/2025 11:44 AM EDT Diane Guzman MD LAB POINT OF CARE T EST DOCKED DEVICE UNSOLICITED RESULTS Final Result Performing Organization Address City/[facility] Co de Phone Number [facility] [address] [place] [address] * (ABNORMAL) POCT glucose meter (05/08/2025 8:05 [...] Comment 05/08/2025 8:07 AM EDT [facility] Insurance Commissioner ID Char Hinojosa 05/08/2025 8:07 AM EDT [facility] Device ID [id number] 05/08/2025 8:07 AM EDT [facility] Specimen Type POC Capillary 05/08/2025 8:07 AM EDT [facility] Blood Capillary blood specimen / Unknown 05/08/2025 8:05 AM EDT 05/08/2025 8:07 AM EDT us Diane Guzman MD LAB POINT OF CARE T EST DOCKED DEVICE UNSOLICITED RESULTS Final Result Performing Organization Address City/[facility] Co de Phone Number [facility] [address] [place] [address] * (ABNORMAL) POCT glucose meter (05/08/2025 3:56 [...] for testing. Comment 05/08/2025 3:58 AM EDT [facility] Insurance Commissioner ID Stella Coleman 05/08/20 3:58 AM EDT [facility] Device ID [id number] 05/08/2025 3:58 AM EDT [facility] Specimen Type POC Capillary 05/08/2025 3:58 AM EDT [facility] Blood Capillary blood specimen / Unknown 05/08/2025 3:56 AM EDT 05/08/2025 3:58 AM EDT Diane Guzman MD LAB POINT OF CARE T EST DOCKED DEVICE UNSOLICITED RESULTS Final Result [facility] [address] [place] [address] * (ABNORMAL) POCT glucose meter (05/07/2025 8:14 PM EDT) [facility] POCT Glucose 392(H) 74 - [...] 05/07/2025 8:15 PM EDT [facility] Insurance Commissioner ID Fela Coelho 05/07/2025 8:15 PM EDT [facility] Device ID [id number] 05/07/2025 8:15 PM EDT [facility] Specimen Type POC Capillary 05/07/2025 8:15 PM EDT [facility] Blood Capillary blood specimen / Unknown 05/07/2025 8:14 PM EDT 05/07/2025 8:15 PM EDT us Diane Guzman MD LAB POINT OF CARE T EST DOCKED DEVICE UNSOLICITED RESULTS Final Result Performing Organization Address [facility] de Phone Number [facility] [address] [place] [address] * (ABNORMAL) POCT glucose meter (05/07/2025 5:10 PM EDT) Pathologist [facility] POCT Glucose 411(H) 74 - 99 mg/dL [...] Comment 05/07/2025 5:13 PM EDT [facility] Insurance Commissioner ID Priyanka Negrete 05/07/20 5:13 PM EDT [facility] Device ID [id number] 05/07/2025 5:13 PM EDT [facility] Specimen Type POC Capillary 05/07/2025 5:13 PM EDT [facility] Blood Capillary blood specimen / Unknown 05/07/2025 5:10 PM EDT 05/07/2025 5:13 PM EDT us Diane Guzman MD LAB POINT OF CARE T EST DOCKED DEVICE UNSOLICITED RESULTS Final Result Performing Organization Address City/[facility] Co de Phone Number [facility] [address] [place] [address] * (ABNORMAL) POCT glucose meter (05/07/2025 12:04 PM EDT) Pathologist [facility] POCT Glucose 350(H) 74 - 99 mg/dL [...] 05/07/2025 12:10 PM EDT [facility] Insurance Commissioner ID Priyanka Negrete 05/07/20 12:10 PM EDT [facility] Device ID [id number] 05/07/2025 12:10 PM EDT [facility] Specimen Type POC Capillary 05/07/2025 12:10 PM EDT [facility] Blood Capillary blood specimen / Unknown 05/07/2025 12:04 PM EDT 05/07/2025 12:10 PM EDT us Diane Guzman MD LAB POINT OF CARE T EST DOCKED DEVICE UNSOLICITED RESULTS Final Result Performing Organization Address [facility] de Phone Number [facility] [address] [place] [address] * (ABNORMAL) POCT glucose meter (05/07/2025 7:41 [...] Comment 05/07/2025 7:44 AM EDT [facility] Insurance Commissioner ID Priyanka Negrete 05/07/20 7:44 AM EDT [facility] Device ID [id number] 05/07/2025 7:44 AM EDT [facility] Specimen Type POC Capillary 05/07/2025 7:44 AM EDT [facility] Blood Capillary blood specimen / Unknown 05/07/2025 7:41 AM EDT 05/07/2025 7:44 AM EDT us Diane Guzman MD LAB POINT OF CARE T EST DOCKED DEVICE UNSOLICITED RESULTS Final Result Performing Organization Address City/[facility] Co de Phone Number [facility] [address] [place] [address] * (ABNORMAL) POCT glucose meter (05/07/2025 3:41 AM EDT) [facility] POCT Glucose 407(H) 74 - [...] Comment 05/07/2025 3:43 AM EDT [facility] Insurance Commissioner ID Won Casas 05/07/2025 3:43 AM EDT [facility] Device ID [id number] 05/07/2025 3:43 AM EDT [facility] Specimen Type POC Capillary 05/07/2025 3:43 AM EDT [facility] Blood Capillary blood specimen / Unknown 05/07/2025 3:41 AM EDT 05/07/2025 3:43 AM EDT Diane Guzman MD LAB POINT OF CARE T EST DOCKED DEVICE UNSOLICITED RESULTS Final Result Performing Organization Address City/State/[facility] Co de Phone Number [facility] [address] [place] [address] * (ABNORMAL) POCT glucose meter (05/06/2025 8:01 PM EDT) [facility] POCT Glucose 324(H) 74 - [...] 05/06/2025 8:02 PM EDT [facility] Insurance Commissioner ID Won Casas 05/06/2025 8:02 PM EDT [facility] Device ID [id number] 05/06/2025 8:02 PM EDT [facility]ALTH[facility] Specimen Type POC Capillary 05/06/2025 8:02 PM EDT [facility] Blood Capillary blood specimen / Unknown 05/06/2025 8:01 PM EDT 05/06/2025 8:02 PM EDT Diane Guzman MD LAB POINT OF CARE T EST DOCKED DEVICE UNSOLICITED RESULTS Final Result Performing Organization Address City/[place] [facility]ZIP Co de Phone Number [facility] [address] [place] [address] * (ABNORMAL) POCT glucose meter (05/06/2025 4:40 PM EDT) [facility] POCT Glucose 212(H) 74 - [...] Comment 05/06/2025 4:46 PM EDT HEALTHCARE LAB Insurance Commissioner ID Sherrell Navarro 05/06/2025 4:46 PM EDT HEALTHCARE LAB Device ID [id number] 05/06/2025 4:46 PM EDT HEALTHCARE LAB Specimen Type POC Capillary 05/06/2025 4:46 PM EDT HEALTHCARE LAB Blood Capillary blood specimen / Unknown 05/06/2025 4:40 PM EDT 05/06/2025 4:46 PM EDT Diane Guzman MD LAB POINT OF CARE T EST DOCKED DEVICE UNSOLICITED RESULTS Final Result [facility] [address] [place] [address] * PSA, diagnostic (05/06/2025 12:27 PM EDT) Pathologist [facility] PSA, Diagnostic, Serum 0.03 0.00 - 2.50 ng/mL 05/06/2025 1:10 PM EDT [facility] Blood Venous blood specimen / Unknown Venipuncture / Unknown 05/06/2025 12:27 PM EDT 05/06/2025 12:33 PM EDT Narrative [facility] - 05/06/2025 1:10 PM EDT Performed by Bella electrochemiluminescent immunoassay which is standardized against the PSA Jeb Reference Standard (WHO 96/670). Results obtained with different test methods or kits cannot be used interchangeably. Diane Guzman MD LAB BLOOD ORDERABLES Final Result Performing Organization Address City/[facility] Co de Phone Number [facility] [address] [place] [address] * (ABNORMAL) POCT glucose meter (05/06/2025 11:28 AM EDT) [facility] Signature POCT Glucose 337(H) 74 - 99 mg/dL [...] Comment 05/06/2025 11:30 AM EDT HEALTHCARE LAB Insurance Commissioner ID Sherrell Navarro 05/06/2025 11:30 AM EDT HEALTHCARE LAB Device ID [id number] 05/06/2025 11:30 AM EDT HEALTHCARE LAB Specimen Type POC Capillary 05/06/2025 11:30 AM EDT [facility] Blood Capillary blood specimen / Unknown 05/06/2025 11:28 AM EDT 05/06/2025 11:30 AM EDT Diane Guzman MD LAB POINT OF CARE T EST DOCKED DEVICE UNSOLICITED RESULTS Final Result Performing Organization Address City/[facility]/ZIP Co de Phone Number HEALTHCARE LAB [address] [place] [address] * (ABNORMAL) POCT glucose meter (05/06/2025 8:13 AM EDT) [facility] POCT Glucose 348(H) 74 - [...] Comment 05/06/2025 8:23 AM EDT HEALTHCARE LAB Insurance Commissioner ID Sherrell Navarro 05/06/2025 8:23 AM EDT HEALTHCARE LAB Device ID [id number] 05/06/2025 8:23 AM EDT HEALTHCARE LAB Specimen Type POC Capillary 05/06/2025 8:23 AM EDT HEALTHCARE LAB Blood Capillary blood specimen / Unknown 05/06/2025 8:13 AM EDT 05/06/2025 8:23 AM EDT Diane Guzman MD LAB POINT OF CARE T EST DOCKED DEVICE UNSOLICITED RESULTS Final Result Performing Organization Address City/State/[facility] Co de Phone Number HEALTHCARE LAB [address] [place] [address] * (ABNORMAL) POCT glucose meter (05/06/2025 3:09 AM EDT) [facility] POCT Glucose 364(H) 74 - [...] Comment 05/06/2025 3:11 AM EDT HEALTHCARE LAB Insurance Commissioner ID Won Casas 05/06/2025 3:11 AM EDT HEALTHCARE LAB Device ID [id number] 05/06/2025 3:11 AM EDT HEALTHCARE LAB Specimen Type POC Capillary 05/06/2025 3:11 AM EDT HEALTHCARE LAB Blood Capillary blood specimen / Unknown 05/06/2025 3:09 AM EDT 05/06/2025 3:11 AM EDT Diane Guzman MD LAB POINT OF CARE T EST DOCKED DEVICE UNSOLICITED RESULTS Final Result Performing Organization Address City/[facility] Co de Phone Number HEALTHCARE [facility] [address] [place] [address] * (ABNORMAL) POCT glucose meter (05/05/2025 8:19 PM EDT) POCT Glucose 324(H) 74 - [...] Comment 05/05/2025 8:20 PM EDT HEALTHCARE LAB Insurance Commissioner ID Won Casas 05/05/2025 8:20 PM EDT HEALTHCARE LAB Device ID [id number] 05/05/2025 8:20 PM EDT HEALTHCARE LAB Specimen Type POC Capillary 05/05/2025 8:20 PM EDT [facility] Blood Capillary blood specimen / Unknown 05/05/2025 8:19 PM EDT 05/05/2025 8:20 PM EDT Diane Guzman MD LAB POINT OF CARE T EST DOCKED DEVICE UNSOLICITED RESULTS Final Result Performing Organization Address City/[facility]/ZIP Co de Phone Number [facility] [address] [place] [address] * (ABNORMAL) POCT glucose meter (05/05/2025 5:09 PM EDT) POCT Glucose 371(H) 74 - 99 mg/dL [...] Comment 05/05/2025 5:14 PM EDT HEALTHCARE LAB Insurance Commissioner ID Sherrell Navarro 05/05/2025 5:14 PM EDT HEALTHCARE LAB Device ID [id number] 05/05/2025 5:14 PM EDT HEALTHCARE LAB Specimen Type POC Capillary 05/05/2025 5:14 PM EDT HEALTHCARE LAB Blood Capillary blood specimen / Unknown 05/05/2025 5:09 PM EDT 05/05/2025 5:14 PM EDT us Diane Guzman MD LAB POINT OF CARE T EST DOCKED DEVICE UNSOLICITED RESULTS Final Result [facility] [address] [place] [address] * (ABNORMAL) POCT glucose meter (05/05/2025 11:29 [...] Comment 05/05/2025 11:32 AM EDT HEALTHCARE LAB Insurance Commissioner ID Sherrell Navarro 05/05/2025 11:32 AM EDT HEALTHCARE LAB Device ID [id number] 05/05/2025 11:32 AM EDT HEALTHCARE LAB Specimen Type POC Capillary 05/05/2025 11:32 AM EDT [facility]ARE [facility] Blood Capillary blood specimen / Unknown 05/05/2025 11:29 AM EDT 05/05/2025 11:32 AM EDT us Diane Guzman MD LAB POINT OF CARE T EST DOCKED DEVICE UNSOLICITED RESULTS Final Result Performing Organization Address City/[facility] Co de Phone Number HEALTHCARE [facility] [address] [place] [address] * (ABNORMAL) POCT glucose meter (05/05/2025 7:55 AM EDT) Pathologist [facility] POCT Glucose 290(H) 74 - 99 mg/dL [...] Comment 05/05/2025 7:57 AM EDT HEALTHCARE LAB Insurance Commissioner ID Sherrell Navarro 05/05/2025 7:57 AM EDT HEALTHCARE LAB Device ID [id number] 05/05/2025 7:57 AM EDT HEALTHCARE LAB Specimen Type POC Capillary 05/05/2025 7:57 AM EDT [facility] Blood Capillary blood specimen / Unknown 05/05/2025 7:55 AM EDT 05/05/2025 7:57 AM EDT Result [facility] Diane Guzman MD LAB POINT OF CARE T EST DOCKED DEVICE UNSOLICITED RESULTS Final Result Performing Organization Address City/[facility] Co de Phone Number [facility] [address] [place] [address] * (ABNORMAL) POCT glucose meter (05/04/2025 7:35 PM EDT) [facility] POCT Glucose 236(H) 74 - [...] 05/04/2025 7:37 PM EDT [facility] Insurance Commissioner ID Kaylin Barron 05/04/2025 7:37 PM EDT HEALTHCARE LAB Device ID [id number] 05/04/2025 7:37 PM EDT HEALTHCARE LAB Specimen Type POC Capillary 05/04/2025 7:37 PM EDT HEALTHCARE LAB Blood Capillary blood specimen / Unknown 05/04/2025 7:35 PM EDT 05/04/2025 7:37 PM EDT Diane Guzman MD LAB POINT OF CARE T EST DOCKED DEVICE UNSOLICITED RESULTS Final Result Performing Organization Address City/[facility] Co de Phone Number HEALTHCARE [facility] [address] [place] [address] * (ABNORMAL) POCT glucose meter (05/04/2025 4:51 PM EDT) [facility] POCT Glucose 233(H) 74 - [...] Comment 05/04/2025 4:53 PM EDT HEALTHCARE LAB Insurance Commissioner ID Araceli Doran 025 4:53 PM EDT HEALTHCARE LAB Device ID [id number] 05/04/2025 4:53 PM EDT HEALTHCARE LAB Specimen Type POC Capillary 05/04/2025 4:53 PM EDT [facility]ARE [facility] Blood Capillary blood specimen / Unknown 05/04/2025 4:51 PM EDT 05/04/2025 4:53 PM EDT Diane Guzman MD LAB POINT OF CARE T EST DOCKED DEVICE UNSOLICITED RESULTS Final Result Performing Organization Address City/[facility]/ZIP Co de Phone Number [facility] [address] [place] [address] * (ABNORMAL) POCT glucose meter (05/04/2025 11:51 AM EDT) [facility] POCT Glucose 271(H) 74 - [...] Comment 05/04/2025 11:56 AM EDT HEALTHCARE LAB Insurance Commissioner ID Araceli Doran 11:56 AM EDT HEALTHCARE LAB Device ID [id number] 05/04/2025 11:56 AM EDT HEALTHCARE LAB Specimen Type POC Capillary 05/04/2025 11:56 AM EDT [facility] Blood Capillary blood specimen / Unknown 05/04/2025 11:51 AM EDT 05/04/2025 11:56 AM EDT Diane Guzman MD LAB POINT OF CARE T EST DOCKED DEVICE UNSOLICITED RESULTS Final Result Performing Organization Address City/State/[facility] Co de Phone Number HEALTHCARE LAB [address] [place] [address] * (ABNORMAL) POCT glucose meter (05/04/2025 8:09 AM EDT) [facility] POCT Glucose 259(H) 74 - [...] Comment 05/04/2025 8:17 AM EDT HEALTHCARE LAB Insurance Commissioner ID Araceli Doran 025 8:17 AM EDT HEALTHCARE LAB Device ID [id number] 05/04/2025 8:17 AM EDT HEALTHCARE LAB Specimen Type POC Capillary 05/04/2025 8:17 AM EDT HEALTHCARE LAB Blood Capillary blood specimen / Unknown 05/04/2025 8:09 AM EDT 05/04/2025 8:17 AM EDT Diane Guzman MD LAB POINT OF CARE T EST DOCKED DEVICE UNSOLICITED RESULTS Final Result Performing Organization Address City/[facility]/ZIP Co de Phone Number HEALTHCARE [facility] [address] [place] [address] * (ABNORMAL) POCT glucose meter (05/04/2025 4:44 [...] Comment 05/04/2025 4:46 AM EDT HEALTHCARE LAB Insurance Commissioner ID Kaylin Barron 05/04/2025 4:46 AM EDT HEALTHCARE LAB Device ID [id number] 05/04/2025 4:46 AM EDT HEALTHCARE LAB Specimen Type POC Capillary 05/04/2025 4:46 AM EDT [facility] Blood Capillary blood specimen / Unknown 05/04/2025 4:44 AM EDT 05/04/2025 4:46 AM EDT Diane Guzman MD LAB POINT OF CARE T EST DOCKED DEVICE UNSOLICITED RESULTS Final Result [facility] [address] [place] [address] * (ABNORMAL) POCT glucose meter (05/03/2025 7:27 PM EDT) POCT Glucose 331(H) 74 - 99 mg/dL [...] Comment 05/03/2025 7:33 PM EDT HEALTHCARE LAB Insurance Commissioner ID Kaylin Barron 05/03/2025 7:33 PM EDT HEALTHCARE LAB Device ID [id number] 05/03/2025 7:33 PM EDT HEALTHCARE LAB Specimen Type POC Capillary 05/03/2025 7:33 PM EDT HEALTH[facility]ARE LAB Blood Capillary blood specimen / Unknown 05/03/2025 7:27 PM EDT 05/03/2025 7:33 PM EDT us Diane Guzman MD LAB POINT OF CARE T EST DOCKED DEVICE UNSOLICITED RESULTS Final Result [facility] [address] [place] [address] * (ABNORMAL) Comprehensive metabolic panel (05/03/2025 6:22 PM EDT) Glucose, Plasma 290(H) 74 - 99 mg/dL 05/03/2025 7:13 PM EDT [facility] BUN, Plasma 14 7 - 21 mg/dL 05/03/2025 7:13 PM EDT [facility] Creatinine, Plasma 0.71 0.70 - 1.20 mg/dL 05/03/2025 7:13 PM EDT [facility] BUN/Creatinine Ratio 20 05/03/2025 7:13 PM EDT [facility] Sodium, Plasma 133(L) 136 - 145 mmol/L 05/03/2025 7:13 PM EDT [facility] Potassium, Plasma 3.6 3.6 - 4.9 mmol/L 05/03/2025 7:13 PM EDT [facility] Chloride, Plasma 87(L) 97 - 107 mmol/L 05/03/2025 7:13 PM EDT [facility] CO2, Plasma 37(H) 22 - 29 mmol/L 05/03/2025 7:13 PM EDT [facility] Anion Gap 9 6 - 16 mmol/L 05/03/2025 7:13 PM EDT [facility] Total Calcium, Plasma 9.4 8.9 - 10.2 mg/dL 05/03/2025 7:13 PM EDT [facility] Total Protein 8.0(H) 6.3 - 7.9 g/dL 05/03/2025 7:13 PM EDT [facility] Albumin, Plasma 3.6 3.5 - 5.2 g/dL 05/03/2025 7:13 PM EDT [facility] AST, Plasma 18 10 - 50 U/L 05/03/2025 7:13 PM EDT [facility] ALT, Plasma 12 10 - 50 U/L 05/03/2025 7:13 PM EDT [facility] Alkaline Phosphatase, Plasma 64 40 - 115 U/L 05/03/2025 7:13 PM EDT [facility] Total Bilirubin, Plasma 0.7 0.2 - 1.1 mg/dL 05/03/2025 7:13 PM EDT [facility] eGFRcr 113.9 mL/min/1.7 3m*2 05/03/2025 7:13 PM EDT [facility] Comment:Reported eGFRcr in m L/min/1.73m2 is based the CKD-EPI 2020 equation that does not use a race coefficient. Blood Venous blood specimen / Unknown Venipuncture / Unknown 05/03/2025 6:22 PM EDT 05/03/2025 6:38 PM EDT us Diane Guzman MD LAB BLOOD ORDERABLES Final Result [facility] [address] [place] [address] * Creatine Kinase (CK), Total (05/03/2025 6:22 PM EDT) Creatine Kinase, Plasma 54 49 - 320 U/L 05/03/2025 7:13 PM EDT [facility] Blood Venous blood specimen / Unknown Venipuncture / Unknown 05/03/2025 6:22 PM EDT 05/03/2025 6:38 PM EDT Diane Guzman MD LAB BLOOD ORDERABLES Final Result Performing Organization Address City/[facility] Co de Phone Number [facility] [address] [place] [address] * (ABNORMAL) POCT glucose meter (05/03/2025 5:30 [...] Comment 05/03/2025 5:33 PM EDT HEALTHCARE LAB Insurance Commissioner ID Dunia Montgomery 05/03/2025 5:33 PM EDT HEALTHCARE LAB Device ID [id number] 05/03/2025 5:33 PM EDT [facility] Specimen Type POC Capillary 05/03/2025 5:33 PM EDT [facility] Blood Capillary blood specimen / Unknown 05/03/2025 5:30 PM EDT 05/03/2025 5:33 PM EDT Diane Guzman MD LAB POINT OF CARE T EST DOCKED DEVICE UNSOLICITED RESULTS Final Result Performing Organization Address City/[facility] Co de Phone Number [facility]ALTH[facility]ARE [facility] [address] [place] [address] * (ABNORMAL) POCT glucose meter (05/03/2025 11:36 [...] Comment 05/03/2025 11:38 AM EDT HEALTHCARE LAB Insurance Commissioner ID Kindra Cardoza 05/03/2025 11:38 AM EDT HEALTHCARE LAB Device ID [id number] 05/03/2025 11:38 AM EDT HEALTHCARE LAB Specimen Type POC Capillary 05/03/2025 11:38 AM EDT [facility]ALTH[facility]ARE [facility] Blood Capillary blood specimen / Unknown 05/03/2025 11:36 AM EDT 05/03/2025 11:38 AM EDT Diane Guzman MD LAB POINT OF CARE T EST DOCKED DEVICE UNSOLICITED RESULTS Final Result Performing Organization Address City/[facility] Co de Phone Number [facility]ARE [facility] [address] [place] [address] * (ABNORMAL) POCT glucose meter (05/03/2025 8:09 [...] Comment 05/03/2025 8:11 AM EDT HEALTHCARE LAB Insurance Commissioner ID Dunia Montgomery 05/03/2025 8:11 AM EDT HEALTHCARE LAB Device ID [id number] 05/03/2025 8:11 AM EDT [facility]ALTH[facility]ARE [facility] Specimen Type POC Capillary 05/03/2025 8:11 AM EDT [facility] Blood Capillary blood specimen / Unknown 05/03/2025 8:09 AM EDT 05/03/2025 8:11 AM EDT Diane Guzman MD LAB POINT OF CARE T EST DOCKED DEVICE UNSOLICITED RESULTS Final Result Performing Organization Address City/[facility]/ZIP Co de Phone Number [facility]ALTH[facility]ARE [facility] [address] [place] [address] * (ABNORMAL) POCT glucose meter (05/03/2025 3:37 AM EDT) [facility] POCT Glucose 372(H) 74 - [...] Comment 05/03/2025 3:40 AM EDT HEALTHCARE LAB Insurance Commissioner ID Maribell Saeed 3:40 AM EDT HEALTHCARE LAB Device ID [id number] 05/03/2025 3:40 AM EDT HEALTHCARE LAB Specimen Type POC Capillary 05/03/2025 3:40 AM EDT [facility]ALTH[facility] Blood Capillary blood specimen / Unknown 05/03/2025 3:37 AM EDT 05/03/2025 3:40 AM EDT us Diane Guzman MD LAB POINT OF CARE T EST DOCKED DEVICE UNSOLICITED RESULTS Final Result [facility] [address] [place] [address] * (ABNORMAL) CBC and Differential (05/03/2025 3:16 AM EDT) [facility] WBC Count 6.86 3.70 - 10.30 10*3/uL LAB HEMATOLOGY METHOD 05/03/2025 3:33 AM EDT [facility] RBC Count 3.82(L) 4.60 - 6.10 10*6/uL LAB HEMATOLOGY METHOD 05/03/2025 3:33 AM EDT [facility] HGB 8.9(L) 13.7 - 17.5 g/dL LAB HEMATOLOGY METHOD 05/03/2025 3:33 AM EDT [facility] HCT 29.2(L) 40.0 - 51.0 % LAB HEMATOLOGY METHOD 05/03/2025 3:33 AM EDT [facility] Platelet Count 202 155 - 369 10*3/uL LAB HEMATOLOGY METHOD 05/03/2025 3:33 AM EDT [facility] MCV 76(L) 79 - 98 fL LAB HEMATOLOGY METHOD 05/03/2025 3:33 AM EDT [facility] MCH 23.3(L) 26.0 - 32.0 pg LAB HEMATOLOGY METHOD 05/03/2025 3:33 AM EDT [facility] MCHC 30.5(L) 30.7 - 35.5 g/dL LAB HEMATOLOGY METHOD 05/03/2025 3:33 AM EDT [facility] RDW 18.8(H) 11.5 - 14.5 % LAB HEMATOLOGY METHOD 05/03/2025 3:33 AM EDT [facility] MPV 9.1 8.8 - 12.5 fL LAB HEMATOLOGY METHOD 05/03/2025 3:33 AM EDT [facility] nRBC 0.0 <=0.0 per 100 WBCs LAB HEMATOLOGY METHOD 05/03/2025 3:33 AM EDT [facility] Differential Type Automated LAB HEMATOLOGY METHOD 05/03/2025 3:33 AM EDT [facility] Neutrophils % 70 % LAB HEMATOLOGY METHOD 05/03/2025 3:33 AM EDT [facility] Lymphocytes % 15 % LAB HEMATOLOGY METHOD 05/03/2025 3:33 AM EDT [facility] Monocytes % 9 % LAB HEMATOLOGY METHOD 05/03/2025 3:33 AM EDT [facility] Eosinophils % 5 % LAB HEMATOLOGY METHOD 05/03/2025 3:33 AM EDT [facility] Basophils % 0 % LAB HEMATOLOGY METHOD 05/03/2025 3:33 AM EDT [facility] Immature Granulocytes % 1 % LAB HEMATOLOGY METHOD 05/03/2025 3:33 AM EDT [facility] Neutrophils Absolute 4.85 1.60 - 6.10 10*3/uL LAB HEMATOLOGY METHOD 05/03/2025 3:33 AM EDT [facility] Lymphocytes Absolute 1.03(L) 1.20 - 3.90 10*3/uL LAB HEMATOLOGY METHOD 05/03/2025 3:33 AM EDT [facility] Monocytes Absolute 0.59 0.30 - 0.90 10*3/uL LAB HEMATOLOGY METHOD 05/03/2025 3:33 AM EDT [facility] Eosinophils Absolute 0.32 0.00 - 0.50 10*3/uL LAB HEMATOLOGY METHOD 05/03/2025 3:33 AM EDT [facility] Basophils Absolute 0.03 0.00 - 0.10 10*3/uL LAB HEMATOLOGY METHOD 05/03/2025 3:33 AM EDT [facility] Immature Granulocytes Absolute 0.04 0.00 - 0.06 10*3/uL LAB HEMATOLOGY METHOD 05/03/2025 3:33 AM EDT [facility] Blood Venous blood specimen / Unknown Venipuncture / Unknown 05/03/2025 3:16 AM EDT 05/03/2025 3:25 AM EDT Narrative [facility] - 05/03/2025 3:33 AM EDT Therapeutic decision making should be based on absolute values, rather than percentages. us Marjorie Myers MD LAB BLOOD ORDERABLES Final Resul t [facility] [address] [place] [address] * (ABNORMAL) Basic Metabolic Panel, Plasma (05/03/2025 3:16 AM EDT) Glucose, Plasma 399(H) 74 - 99 mg/dL 05/03/2025 4:02 AM EDT [facility] BUN, Plasma 15 7 - 21 mg/dL 05/03/2025 4:02 AM EDT [facility] Creatinine, Plasma 0.78 0.70 - 1.20 mg/dL 05/03/2025 4:02 AM EDT [facility] BUN/Creatinine Ratio 19 05/03/2025 4:02 AM EDT [facility] Sodium, Plasma 136 136 - 145 mmol/L 05/03/2025 4:02 AM EDT [facility] Potassium, Plasma 3.6 3.6 - 4.9 mmol/L 05/03/2025 4:02 AM EDT [facility] Chloride, Plasma 90(L) 97 - 107 mmol/L 05/03/2025 4:02 AM EDT [facility] CO2, Plasma 37(H) 22 - 29 mmol/L 05/03/2025 4:02 AM EDT [facility] Anion Gap 9 6 - 16 mmol/L 05/03/2025 4:02 AM EDT [facility] Total Calcium, Plasma 9.0 8.9 - 10.2 mg/dL 05/03/2025 4:02 AM EDT [facility] eGFRcr 110.7 mL/min/1.7 3m*2 05/03/2025 4:02 AM EDT [facility] Comment:Reported eGFRcr in m L/min/1.73m2 is based the CKD-EPI 2020 equation that does not use a race coefficient. Blood Venous blood specimen / Unknown Venipuncture / Unknown 05/03/2025 3:16 AM EDT 05/03/2025 3:24 AM EDT Marjorie Myers MD LAB BLOOD ORDERABLES Final Resul t Performing Organization Address City/[facility]/ZIP Co de Phone Number [facility] [address] [place] [address] * (ABNORMAL) Magnesium, Plasma (05/03/2025 3:16 AM EDT) Magnesium, Plasma 1.7(L) 1.9 - 2.4 mg/dL 05/03/2025 4:02 AM EDT [facility] Blood Venous blood specimen / Unknown Venipuncture / Unknown 05/03/2025 3:16 AM EDT 05/03/2025 3:24 AM EDT us Marjorie Myers MD LAB BLOOD ORDERABLES Final Resul t [facility] [address] [place] [address] * Phosphorus, Plasma (05/03/2025 3:16 AM EDT) Phosphorus, Plasma 3.6 2.5 - 4.5 mg/dL 05/03/2025 4:02 AM EDT [facility] Blood Venous blood specimen / Unknown Venipuncture / Unknown 05/03/2025 3:16 AM EDT 05/03/2025 3:24 AM EDT Marjorie Myers MD LAB BLOOD ORDERABLES Final Resul t Performing Organization Address [facility] Co de Phone Number [facility] [address] [place] [address] * Hepatitis B Core Total Antibody IgG,IgM (05/03/2025 3:16 AM EDT) Hepatitis B Core Total Antibody IgG,IgM Negative Negative 05/03/2025 4:28 AM EDT [facility] Blood Venous blood specimen / Unknown Venipuncture / Unknown 05/03/2025 3:16 AM EDT 05/03/2025 3:24 AM EDT Diane Guzman MD LAB BLOOD ORDERABLES Final Result Performing Organization Address [facility] Co pa Phone Number [facility] [address] [place] [address] * Hepatitis B Surface Antigen (05/03/2025 3:16 AM EDT) Hepatitis B Surf Antigen Negative Negative 05/03/2025 4:28 AM EDT [facility] Blood Venous blood specimen / Unknown Venipuncture / Unknown 05/03/2025 3:16 AM EDT 05/03/2025 3:24 AM EDT Diane Guzman MD LAB BLOOD ORDERABLES Final Result Performing Organization Address [facility] Co de Phone Number [facility] [address] [place] [address] * Hepatitis B Surface Antibody, Quantitative (05/03/2025 3:16 AM EDT) Hepatitis B Surface Antibody, Quantitative <8.00 NonReactiv e: <8, Grayzone: 8 - <12, Reactive: >= 12 mIU/mL 05/03/2025 4:28 AM EDT [facility] Comment: Nonreactive. Individual is considered not immune to HBV infection. Blood Venous blood specimen / Unknown Venipuncture / Unknown 05/03/2025 3:16 AM EDT 05/03/2025 3:24 AM EDT Diane Guzman MD LAB BLOOD ORDERABLES Final Result Performing Organization Address City/[facility] Co de Phone Number [facility] [address] [place] [address] * Hepatitis A Antibody IgG (05/03/2025 3:16 AM EDT) [facility] Hepatitis A Antibody IgG Negative Negative 05/03/2025 4:28 AM EDT [facility] Blood Venous blood specimen / Unknown Venipuncture / Unknown 05/03/2025 3:16 AM EDT 05/03/2025 3:24 AM EDT Diane Guzman MD LAB BLOOD ORDERABLES Final Result Performing Organization Address [facility] Phone Number [facility] [address] [place] [address] * (ABNORMAL) POCT glucose meter (05/02/2025 8:48 PM EDT) [facility] POCT Glucose 325(H) 74 - [...] 05/02/2025 8:50 PM EDT [facility] Insurance Commissioner ID Maribell Saeed 8:50 PM EDT [facility] Device ID [id number] 05/02/2025 8:50 PM EDT [facility] Specimen Type POC Capillary 05/02/2025 8:50 PM EDT [facility] Blood Capillary blood specimen / Unknown 05/02/2025 8:48 PM EDT 05/02/2025 8:50 PM EDT Dinae Guzman MD LAB POINT OF CARE T EST DOCKED DEVICE UNSOLICITED RESULTS Final Result Performing Organization Address City/[facility] Co de Phone Number [facility] [address] [place] [address] * (ABNORMAL) POCT glucose meter (05/02/2025 4:30 PM EDT) [facility] POCT Glucose 250(H) 74 - [...] for testing. Comment 05/02/2025 4:32 PM EDT [facility] Insurance Commissioner ID Sebastián Kenny 4:32 PM EDT [facility] Device ID [id number] 05/02/2025 4:32 PM EDT [facility] Specimen Type POC Capillary 05/02/2025 4:32 PM EDT [facility] Blood Capillary blood specimen / Unknown 05/02/2025 4:30 PM EDT 05/02/2025 4:32 PM EDT Diane Guzman MD LAB POINT OF CARE T EST DOCKED DEVICE UNSOLICITED RESULTS Final Result Performing Organization Address City/[facility] Co de Phone Number [facility] [address] [place] [address] * Nasopharyngeal Respiratory Panel (05/02/2025 1:05 PM EDT) [facility] Nasopharyngeal Respiratory PCR Interpretation Not Detected for all analytes Not Detected for all analytes 05/02/2025 3:14 PM EDT [facility] Swab Nasopharyngeal structure / Unknown Non-blood Collection / Unknown 05/02/2025 1:05 PM EDT 05/02/2025 1:12 PM EDT Narrative [facility] - 05/02/2025 3:14 PM EDT [...] Respiratory PCR Panel is performed using the [employer] instrument. This test is FDA approved for use with Nasopharyngeal swabs only. This test is used for clinical purposes. It should not be regarded as investigational or for research. The [facility] Clinical Microbiology Laboratory is certified under the Clinical Laboratory Improvement Amendments of 1988 (CLIA-88) as qualified to perform high complexity clinical laboratory testing. Diane Guzman MD LAB MICROBIOLOGY - GENERAL ORDERABLES Final Result [facility] [address] [place] [address] * (ABNORMAL) POCT glucose meter (05/02/2025 12:08 PM EDT) POCT Glucose 278(H) 74 - 99 mg/dL 05/02/2025 12:10 PM EDT [facility] Comment:Accuracy of a glucos e result [...] for testing. Comment 05/02/2025 12:10 PM EDT [facility] Insurance Commissioner ID Sebastián Kenny 12:10 PM EDT [facility] Device ID [id number] 05/02/2025 12:10 PM EDT [facility] Specimen Type POC Capillary 05/02/2025 12:10 PM EDT [email or web address] Blood Capillary blood specimen / Unknown 05/02/2025 12:08 PM EDT 05/02/2025 12:10 PM EDT Diane Guzman MD LAB POINT OF CARE T EST DOCKED DEVICE UNSOLICITED RESULTS Final Result Performing Organization Address City/[facility] Co de Phone Number [facility]ARE [facility] [address] [place] [address] * (ABNORMAL) POCT glucose meter (05/02/2025 8:11 [...] for testing. Comment 05/02/2025 8:12 AM EDT [facility] Insurance Commissioner ID Sebastián Kenny 8:12 AM EDT [facility] Device ID [id number] 05/02/2025 8:12 AM EDT [facility] Specimen Type POC Capillary 05/02/2025 8:12 AM EDT [facility] Blood Capillary blood specimen / Unknown 05/02/2025 8:11 AM EDT 05/02/2025 8:12 AM EDT Diane Guzman MD LAB POINT OF CARE T EST DOCKED DEVICE UNSOLICITED RESULTS Final Result Performing Organization Address City/[facility]/ZIP Co de Phone Number [facility] [address] [place] [address] * (ABNORMAL) POCT glucose meter (05/02/2025 4:01 [...] Comment 05/02/2025 4:03 AM EDT [facility] Insurance Commissioner ID Stella Coleman 05/02/20 4:03 AM EDT [facility] Device ID [id number] 05/02/2025 4:03 AM EDT [facility] Specimen Type POC Capillary 05/02/2025 4:03 AM EDT [facility] Blood Capillary blood specimen / Unknown 05/02/2025 4:01 AM EDT 05/02/2025 4:03 AM EDT us Marjorie Myers MD LAB POINT OF CARE TE ST DOCKED DEVICE UNSOLICITED RESULTS Final Result [facility] [address] [place] [address] * (ABNORMAL) CBC and Differential (05/02/2025 3:10 AM EDT) WBC Count 7.39 3.70 - 10.30 10*3/uL LAB HEMATOLOGY METHOD 05/02/2025 3:23 AM EDT [facility] RBC Count 3.88(L) 4.60 - 6.10 10*6/uL LAB HEMATOLOGY METHOD 05/02/2025 3:23 AM EDT [facility] HGB 8.8(L) 13.7 - 17.5 g/dL LAB HEMATOLOGY METHOD 05/02/2025 3:23 AM EDT [facility] HCT 29.3(L) 40.0 - 51.0 % LAB HEMATOLOGY METHOD 05/02/2025 3:23 AM EDT [facility] Platelet Count 205 155 - 369 10*3/uL LAB HEMATOLOGY METHOD 05/02/2025 3:23 AM EDT [facility] MCV 76(L) 79 - 98 fL LAB HEMATOLOGY METHOD 05/02/2025 3:23 AM EDT [facility] MCH 22.7(L) 26.0 - 32.0 pg LAB HEMATOLOGY METHOD 05/02/2025 3:23 AM EDT [facility] MCHC 30.0(L) 30.7 - 35.5 g/dL LAB HEMATOLOGY METHOD 05/02/2025 3:23 AM EDT [facility] RDW 19.1(H) 11.5 - 14.5 % LAB HEMATOLOGY METHOD 05/02/2025 3:23 AM EDT [facility] MPV 8.5(L) 8.8 - 12.5 fL LAB HEMATOLOGY METHOD 05/02/2025 3:23 AM EDT [facility] nRBC 0.0 <=0.0 per 100 WBCs LAB HEMATOLOGY METHOD 05/02/2025 3:23 AM EDT [facility] Differential Type Automated LAB HEMATOLOGY METHOD 05/02/2025 3:23 AM EDT [facility] Neutrophils % 74 % LAB HEMATOLOGY METHOD 05/02/2025 3:23 AM EDT [facility] Lymphocytes % 13 % LAB HEMATOLOGY METHOD 05/02/2025 3:23 AM EDT [facility] Monocytes % 8 % LAB HEMATOLOGY METHOD 05/02/2025 3:23 AM EDT [facility] Eosinophils % 4 % LAB HEMATOLOGY METHOD 05/02/2025 3:23 AM EDT [facility] Basophils % 0 % LAB HEMATOLOGY METHOD 05/02/2025 3:23 AM EDT [facility] Immature Granulocytes % 1 % LAB HEMATOLOGY METHOD 05/02/2025 3:23 AM EDT [facility] Neutrophils Absolute 5.45 1.60 - 6.10 10*3/uL LAB HEMATOLOGY METHOD 05/02/2025 3:23 AM EDT [facility] Lymphocytes Absolute 0.96(L) 1.20 - 3.90 10*3/uL LAB HEMATOLOGY METHOD 05/02/2025 3:23 AM EDT [facility] Monocytes Absolute 0.62 0.30 - 0.90 10*3/uL LAB HEMATOLOGY METHOD 05/02/2025 3:23 AM EDT [facility] Eosinophils Absolute 0.30 0.00 - 0.50 10*3/uL LAB HEMATOLOGY METHOD 05/02/2025 3:23 AM EDT [facility] Basophils Absolute 0.01 0.00 - 0.10 10*3/uL LAB HEMATOLOGY METHOD 05/02/2025 3:23 AM EDT [facility] Immature Granulocytes Absolute 0.05 0.00 - 0.06 10*3/uL LAB HEMATOLOGY METHOD 05/02/2025 3:23 AM EDT [facility] Blood Venous blood specimen / Unknown Venipuncture / Unknown 05/02/2025 3:10 AM EDT 05/02/2025 3:14 AM EDT Narrative [facility] - 05/02/2025 3:23 AM EDT Therapeutic decision making should be based on absolute values, rather than percentages. us Marjorie Myers MD LAB BLOOD ORDERABLES Final Resul t [facility] [address] [place] [address] * (ABNORMAL) Basic Metabolic Panel, Plasma (05/02/2025 3:10 AM EDT) Glucose, Plasma 358(H) 74 - 99 mg/dL 05/02/2025 3:45 AM EDT [facility] BUN, Plasma 12 7 - 21 mg/dL 05/02/2025 3:45 AM EDT [facility] Creatinine, Plasma 0.73 0.70 - 1.20 mg/dL 05/02/2025 3:45 AM EDT [facility] BUN/Creatinine Ratio 16 05/02/2025 3:45 AM EDT [facility] Sodium, Plasma 134(L) 136 - 145 mmol/L 05/02/2025 3:45 AM EDT [facility] Potassium, Plasma 3.3(L) 3.6 - 4.9 mmol/L 05/02/2025 3:45 AM EDT [facility] Chloride, Plasma 90(L) 97 - 107 mmol/L 05/02/2025 3:45 AM EDT [facility] CO2, Plasma 37(H) 22 - 29 mmol/L 05/02/2025 3:45 AM EDT [facility] Anion Gap 7 6 - 16 mmol/L 05/02/2025 3:45 AM EDT [facility] Total Calcium, Plasma 8.7(L) 8.9 - 10.2 mg/dL 05/02/2025 3:45 AM EDT [facility] eGFRcr 112.9 mL/min/1.7 3m*2 05/02/2025 3:45 AM EDT [facility] Comment:Reported eGFRcr in m L/min/1.73m2 is based the CKD-EPI 2020 equation that does not use a race coefficient. Blood Venous blood specimen / Unknown Venipuncture / Unknown 05/02/2025 3:10 AM EDT 05/02/2025 3:15 AM EDT us Marjorie Myers MD LAB BLOOD ORDERABLES Final Resul t Performing Organization Address City/[facility]/ZIP Co de Phone Number [facility] [address] [place] [address] * (ABNORMAL) Magnesium, Plasma (05/02/2025 3:10 AM EDT) Magnesium, Plasma 1.6(L) 1.9 - 2.4 mg/dL 05/02/2025 3:45 AM EDT [facility] Blood Venous blood specimen / Unknown Venipuncture / Unknown 05/02/2025 3:10 AM EDT 05/02/2025 3:15 AM EDT us Marjorie Myers MD LAB BLOOD ORDERABLES Final Resul t Performing Organization Address City/[facility]/ZIP Co de Phone Number [facility] [address] [place] [address] * Phosphorus, Plasma (05/02/2025 3:10 AM EDT) Phosphorus, Plasma 3.0 2.5 - 4.5 mg/dL 05/02/2025 3:45 AM EDT [facility] Blood Venous blood specimen / Unknown Venipuncture / Unknown 05/02/2025 3:10 AM EDT 05/02/2025 3:15 AM EDT us Marjorie Myers MD LAB BLOOD ORDERABLES Final Resul t Performing Organization Address City/[facility]/ZIP Co de Phone Number [facility] [address] [place] [address] * Creatine Kinase (CK), Total (05/02/2025 3:10 AM EDT) Creatine Kinase, Plasma 50 49 - 320 U/L 05/02/2025 3:45 AM EDT [facility] Blood Venous blood specimen / Unknown Venipuncture / Unknown 05/02/2025 3:10 AM EDT 05/02/2025 3:15 AM EDT Marjorie Myers MD LAB BLOOD ORDERABLES Final Resul t Performing Organization Address City/[facility]/ZIP Co de Phone Number [facility] [address] [place] [address] * (ABNORMAL) POCT glucose meter (05/01/2025 8:26 PM EDT) [facility] POCT Glucose 316(H) 74 - [...] Comment 05/01/2025 8:27 PM EDT [facility] Insurance Commissioner ID Stella Coleman 05/01/20 8:27 PM EDT [facility] Device ID [id number] 05/01/2025 8:27 PM EDT [facility] Specimen Type POC Capillary 05/01/2025 8:27 PM EDT [facility] Blood Capillary blood specimen / Unknown 05/01/2025 8:26 PM EDT 05/01/2025 8:27 PM EDT Marjorie Myers MD LAB POINT OF CARE TE ST DOCKED DEVICE UNSOLICITED RESULTS Final Result Performing Organization Address City/[facility]/ZIP Co de Phone Number [facility] [address] [place] [address] * (ABNORMAL) POCT glucose meter (05/01/2025 5:55 PM EDT) [facility] POCT Glucose 294(H) 74 - [...] for testing. Comment 05/01/2025 5:57 PM EDT [facility] Insurance Commissioner ID Sebastián Kenny 5:57 PM EDT [facility] Device ID [id number] 05/01/2025 5:57 PM EDT [facility] Specimen Type POC Capillary 05/01/2025 5:57 PM EDT [facility] Blood Capillary blood specimen / Unknown 05/01/2025 5:55 PM EDT 05/01/2025 5:57 PM EDT Marjorie Myers MD LAB POINT OF CARE TE ST DOCKED DEVICE UNSOLICITED RESULTS Final Result Performing Organization Address City/State/[facility] Co de Phone Number [facility] [address] [place] [address] * (ABNORMAL) POCT glucose meter (05/01/2025 11:51 AM EDT) [facility] POCT Glucose 301(H) 74 - [...] 05/01/2025 11:53 AM EDT [facility] Insurance Commissioner ID Sebastián Kenny 11:53 AM EDT [facility] Device ID [id number] 05/01/2025 11:53 AM EDT [facility] Specimen Type POC Capillary 05/01/2025 11:53 AM EDT [facility] Blood Capillary blood specimen / Unknown 05/01/2025 11:51 AM EDT 05/01/2025 11:53 AM EDT Marjorie Myers MD LAB POINT OF CARE TE ST DOCKED DEVICE UNSOLICITED RESULTS Final Result Performing Organization Address City/[facility] de Phone Number [facility] [address] [place] [address] * (ABNORMAL) POCT glucose meter (05/01/2025 9:13 [...] for testing. Comment 05/01/2025 9:15 AM EDT [facility] Insurance Commissioner ID Francisco Javier Martin 05/01/2025 9:15 AM EDT [facility] Device ID [id number] 05/01/2025 9:15 AM EDT [facility] Specimen Type POC Capillary 05/01/2025 9:15 AM EDT [facility] Blood Capillary blood specimen / Unknown 05/01/2025 9:13 AM EDT 05/01/2025 9:15 AM EDT Marjorie Myers MD LAB POINT OF CARE TE ST DOCKED DEVICE UNSOLICITED RESULTS Final Result Performing Organization Address City/[facility] de Phone Number [facility] [address] [place] [address] * Surgical Pathology Exam (05/01/2025 8:13 AM EDT) Case Report Surgical Pathology Case: [id number] Authorizing Provider: Mary Vicente MD Collected: 05/01/2025 0813 [facility] Received: 05/01/2025 09 Pathologist: Vidya Ly MD Specimens: A) - Toe, Right, R 5th toe B) - Toe, Right, R 5th toe margin 05/09/2025 9:56 AM EDT [facility] Correction History Case amended to provide diagnosis after final decal sections received 05/09/2025 9:56 AM EDT [facility] Comment:These results have b een appended to a previously final verified report. Final Diagnosis A. RIGHT FIFTH TOE, AMPUTATION: - ULCER WITH SUPPURATIVE INFLAMMATION, GANGRENOUS NECROSIS, AND UNDERLYING ACUTE OSTEOMYELITIS. B. RIGHT FIFTH TOE MARGIN, RESECTION: - NO ACUTE OSTEOMYELITIS IDENTIFIED. 05/09/2025 9:56 AM EDT [facility] Amendment electronically signed by Vidya Ly MD on 05/09/2025 at 0956 EDT at 1233 EDT Comment:Corrected result: Pr eviously reported as [Previous value contains rich text formatting which cannot be displayed here] (see Result History) on 05/05/2025 at 1233 EDT. 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 R 5TH [...] The wound extends into the underlying bone. Insurance And Financial Services Agent sections are submitted as follows: A1-A2: Necrotic lateral skin A3: Bone underlying gaping wound, following decalcification A4: Bone margin, following decalcification BLAS Kwok ([facility]) B. R 5TH TOE MARGIN The specimen is received fresh and placed in formalin, labeled R 5th toe MARGIN , and consists of a 2.8 x 2.8 x 0.6 cm aggregate of hemorrhagic bony fragments. The specimen is entirely submitted in cassette B1, following decalcification. Cold Time: 25m BLAS Kwok ([facility]) 05/09/2025 9:56 AM EDT [facility] Note: 05/09/2025 9:56 AM EDT [facility] Comment:Corrected result: Pr eviously reported as [...] Edited Result - Final Performing Organization Address City/[facility]/ZIP Co de Phone Number [facility] [address] [place] [address] * Type and Screen (05/01/2025 6:49 AM EDT) Pathologist [facility] ABO/Rh O Positive 05/01/2025 6:53 AM EDT [facility] Antibody Screen Negative 05/01/2025 6:53 AM EDT [facility] Specimen Expiration 05/04/2025 23:59 05/01/2025 6:53 AM EDT [facility] Blood Venous blood specimen / Unknown Venipuncture / Unknown 05/01/2025 6:49 AM EDT 05/01/2025 6:53 AM EDT us Yanna Calhoun DO LAB BLOOD BANK TEST ORDERA BLES Final Result Performing Organization Address [facility] Co de Phone Number BLOOD BANK [address] [place] [address], * (ABNORMAL) POCT glucose meter (05/01/2025 6:48 AM EDT) POCT Glucose 222(H) 74 - 99 mg/dL 05/01/2025 6:50 AM EDT [facility] Comment:Accuracy of a glucos e result [...] Comment 05/01/2025 6:50 AM EDT [facility] Insurance Commissioner ID Emelina Romero 6:50 AM EDT [facility] LAB Device ID [id number] 05/01/2025 6:50 AM EDT [facility] Specimen Type POC Venous 05/01/2025 6:50 AM EDT [facility] Blood Venous blood specimen / Unknown 05/01/2025 6:48 AM EDT 05/01/2025 6:50 AM EDT us Marjorie Myers MD LAB POINT OF CARE TE ST DOCKED DEVICE UNSOLICITED RESULTS Final Result Performing Organization Address City/[facility]/ZIP Co de Phone Number [facility] [address] [place] [address] * Creatine Kinase (CK), Total (05/01/2025 2:14 AM EDT) Creatine Kinase, Plasma 60 49 - 320 U/L 05/01/2025 2:53 AM EDT [facility] Blood Venous blood specimen / Unknown Venipuncture / Unknown 05/01/2025 2:14 AM EDT 05/01/2025 2:26 AM EDT Marjorie Myers MD LAB BLOOD ORDERABLES Final Resul t [facility] [address] [place] [address] * (ABNORMAL) CBC and Differential (05/01/2025 2:14 AM EDT) WBC Count 6.96 3.70 - 10.30 10*3/uL LAB HEMATOLOGY METHOD 05/01/2025 2:37 AM EDT [facility] RBC Count 4.23(L) 4.60 - 6.10 10*6/uL LAB HEMATOLOGY METHOD 05/01/2025 2:37 AM EDT [facility] HGB 9.8(L) 13.7 - 17.5 g/dL LAB HEMATOLOGY METHOD 05/01/2025 2:37 AM EDT [facility] HCT 32.5(L) 40.0 - 51.0 % LAB HEMATOLOGY METHOD 05/01/2025 2:37 AM EDT [facility] Platelet Count 218 155 - 369 10*3/uL LAB HEMATOLOGY METHOD 05/01/2025 2:37 AM EDT [facility] MCV 77(L) 79 - 98 fL LAB HEMATOLOGY METHOD 05/01/2025 2:37 AM EDT [facility] MCH 23.2(L) 26.0 - 32.0 pg LAB HEMATOLOGY METHOD 05/01/2025 2:37 AM EDT [facility] MCHC 30.2(L) 30.7 - 35.5 g/dL LAB HEMATOLOGY METHOD 05/01/2025 2:37 AM EDT [facility] RDW 19.1(H) 11.5 - 14.5 % LAB HEMATOLOGY METHOD 05/01/2025 2:37 AM EDT [facility] MPV 8.4(L) 8.8 - 12.5 fL LAB HEMATOLOGY METHOD 05/01/2025 2:37 AM EDT [facility] nRBC 0.0 <=0.0 per 100 WBCs LAB HEMATOLOGY METHOD 05/01/2025 2:37 AM EDT [facility] Differential Type Automated LAB HEMATOLOGY METHOD 05/01/2025 2:37 AM EDT [facility] Neutrophils % 76 % LAB HEMATOLOGY METHOD 05/01/2025 2:37 AM EDT [facility] Lymphocytes % 11 % LAB HEMATOLOGY METHOD 05/01/2025 2:37 AM EDT [facility] Monocytes % 8 % LAB HEMATOLOGY METHOD 05/01/2025 2:37 AM EDT [facility] Eosinophils % 4 % LAB HEMATOLOGY METHOD 05/01/2025 2:37 AM EDT [facility] Basophils % 0 % LAB HEMATOLOGY METHOD 05/01/2025 2:37 AM EDT [facility] Immature Granulocytes % 1 % LAB HEMATOLOGY METHOD 05/01/2025 2:37 AM EDT [facility] Neutrophils Absolute 5.26 1.60 - 6.10 10*3/uL LAB HEMATOLOGY METHOD 05/01/2025 2:37 AM EDT [facility] Lymphocytes Absolute 0.79(L) 1.20 - 3.90 10*3/uL LAB HEMATOLOGY METHOD 05/01/2025 2:37 AM EDT [facility] Monocytes Absolute 0.57 0.30 - 0.90 10*3/uL LAB HEMATOLOGY METHOD 05/01/2025 2:37 AM EDT [facility] Eosinophils Absolute 0.28 0.00 - 0.50 10*3/uL LAB HEMATOLOGY METHOD 05/01/2025 2:37 AM EDT [facility] Basophils Absolute 0.02 0.00 - 0.10 10*3/uL LAB HEMATOLOGY METHOD 05/01/2025 2:37 AM EDT [facility] Immature Granulocytes Absolute 0.04 0.00 - 0.06 10*3/uL LAB HEMATOLOGY METHOD 05/01/2025 2:37 AM EDT [facility] Blood Venous blood specimen / Unknown Venipuncture / Unknown 05/01/2025 2:14 AM EDT 05/01/2025 2:26 AM EDT Narrative [facility] - 05/01/2025 2:37 AM EDT Therapeutic decision making should be based on absolute values, rather than percentages. us Marjorie Myers MD LAB BLOOD ORDERABLES Final Resul t [facility] [address] [place] [address] * (ABNORMAL) Basic Metabolic Panel, Plasma (05/01/2025 2:14 AM EDT) Glucose, Plasma 266(H) 74 - 99 mg/dL 05/01/2025 2:53 AM EDT [facility] BUN, Plasma 9 7 - 21 mg/dL 05/01/2025 2:53 AM EDT [facility] Creatinine, Plasma 0.71 0.70 - 1.20 mg/dL 05/01/2025 2:53 AM EDT [facility] BUN/Creatinine Ratio 13 05/01/2025 2:53 AM EDT [facility] Sodium, Plasma 137 136 - 145 mmol/L 05/01/2025 2:53 AM EDT [facility] Potassium, Plasma 3.4(L) 3.6 - 4.9 mmol/L 05/01/2025 2:53 AM EDT [facility] Chloride, Plasma 91(L) 97 - 107 mmol/L 05/01/2025 2:53 AM EDT [facility] CO2, Plasma 36(H) 22 - 29 mmol/L 05/01/2025 2:53 AM EDT [facility] Anion Gap 10 6 - 16 mmol/L 05/01/2025 2:53 AM EDT [facility] Total Calcium, Plasma 8.6(L) 8.9 - 10.2 mg/dL 05/01/2025 2:53 AM EDT [facility] eGFRcr 113.9 mL/min/1.7 3m*2 05/01/2025 2:53 AM EDT [facility] Comment:Reported eGFRcr in m L/min/1.73m2 is based the CKD-EPI 2020 equation that does not use a race coefficient. Blood Venous blood specimen / Unknown Venipuncture / Unknown 05/01/2025 2:14 AM EDT 05/01/2025 2:26 AM EDT us Marjorie Myers MD LAB BLOOD ORDERABLES Final Resul t [facility] [address] [place] [address] * (ABNORMAL) Magnesium, Plasma (05/01/2025 2:14 AM EDT) Magnesium, Plasma 1.8(L) 1.9 - 2.4 mg/dL 05/01/2025 2:53 AM EDT [facility] Blood Venous blood specimen / Unknown Venipuncture / Unknown 05/01/2025 2:14 AM EDT 05/01/2025 2:26 AM EDT us Marjorie Myers MD LAB BLOOD ORDERABLES Final Resul t [facility] [address] [place] [address] * Phosphorus, Plasma (05/01/2025 2:14 AM EDT) Pathologist [facility] Phosphorus, Plasma 3.0 2.5 - 4.5 mg/dL 05/01/2025 2:53 AM EDT [facility] Blood Venous blood specimen / Unknown Venipuncture / Unknown 05/01/2025 2:14 AM EDT 05/01/2025 2:26 AM EDT us Marjorie Myers MD LAB BLOOD ORDERABLES Final Resul t [facility] [address] [place] [address] * (ABNORMAL) POCT glucose meter (04/30/2025 8:21 PM EDT) [facility] POCT Glucose 226(H) 74 - [...] 04/30/2025 8:23 PM EDT [facility] Insurance Commissioner ID Sandra Perez 04/30/20 25 8:23 PM EDT [facility] Device ID [id number] 04/30/2025 8:23 PM EDT [facility] Specimen Type POC Capillary 04/30/2025 8:23 PM EDT [facility] Blood Capillary blood specimen / Unknown 04/30/2025 8:21 PM EDT 04/30/2025 8:23 PM EDT us Marjorie Myers MD LAB POINT OF CARE TE ST DOCKED DEVICE UNSOLICITED RESULTS Final Result [facility] [address] [place] [address] * (ABNORMAL) POCT glucose meter (04/30/2025 4:19 PM EDT) [facility] POCT Glucose 173(H) 74 - [...] 04/30/2025 4:54 PM EDT [facility] Insurance Commissioner ID Priyanka Negrete 04/30/20 4:54 PM EDT [facility] LAB Device ID [id number] 04/30/2025 4:54 PM EDT [facility] Specimen Type POC Capillary 04/30/2025 4:54 PM EDT [facility] Blood Capillary blood specimen / Unknown 04/30/2025 4:19 PM EDT 04/30/2025 4:54 PM EDT Marjorie Myers MD LAB POINT OF CARE TE ST DOCKED DEVICE UNSOLICITED RESULTS Final Result Performing Organization Address City/State/[facility] Co de Phone Number [facility] [address] [place] [address] * (ABNORMAL) POCT glucose meter (04/30/2025 12:11 PM EDT) [facility] POCT Glucose 226(H) 74 - [...] 04/30/2025 12:50 PM EDT [facility] Insurance Commissioner ID Priyanka Negrete 04/30/20 12:50 PM EDT [facility] Device ID [id number] 04/30/2025 12:50 PM EDT [facility] Specimen Type POC Capillary 04/30/2025 12:50 PM EDT [facility] Blood Capillary blood specimen / Unknown 04/30/2025 12:11 PM EDT 04/30/2025 12:50 PM EDT Marjorie Myers MD LAB POINT OF CARE TE ST DOCKED DEVICE UNSOLICITED RESULTS Final Result [facility] [address] [place] [address] * (ABNORMAL) POCT glucose meter (04/30/2025 8:18 [...] Comment 04/30/2025 8:55 AM EDT [facility] Insurance Commissioner ID Priyanka Negrete 04/30/20 8:55 AM EDT [facility] Device ID [id number] 04/30/2025 8:55 AM EDT [facility] Specimen Type POC Capillary 04/30/2025 8:55 AM EDT [facility] Blood Capillary blood specimen / Unknown 04/30/2025 8:18 AM EDT 04/30/2025 8:55 AM EDT Marjorie Myers MD LAB POINT OF CARE TE ST DOCKED DEVICE UNSOLICITED RESULTS Final Result [facility] [address] [place] [address] * (ABNORMAL) CBC and Differential (04/30/2025 3:19 AM EDT) WBC Count 8.84 3.70 - 10.30 10*3/uL LAB HEMATOLOGY METHOD 04/30/2025 3:35 AM EDT [facility] RBC Count 4.31(L) 4.60 - 6.10 10*6/uL LAB HEMATOLOGY METHOD 04/30/2025 3:35 AM EDT [facility] HGB 9.6(L) 13.7 - 17.5 g/dL LAB HEMATOLOGY METHOD 04/30/2025 3:35 AM EDT [facility] HCT 32.6(L) 40.0 - 51.0 % LAB HEMATOLOGY METHOD 04/30/2025 3:35 AM EDT [facility] Platelet Count 245 155 - 369 10*3/uL LAB HEMATOLOGY METHOD 04/30/2025 3:35 AM EDT [facility] MCV 76(L) 79 - 98 fL LAB HEMATOLOGY METHOD 04/30/2025 3:35 AM EDT [facility] MCH 22.3(L) 26.0 - 32.0 pg LAB HEMATOLOGY METHOD 04/30/2025 3:35 AM EDT [facility] MCHC 29.4(L) 30.7 - 35.5 g/dL LAB HEMATOLOGY METHOD 04/30/2025 3:35 AM EDT [facility] RDW 19.1(H) 11.5 - 14.5 % LAB HEMATOLOGY METHOD 04/30/2025 3:35 AM EDT [facility] MPV 8.5(L) 8.8 - 12.5 fL LAB HEMATOLOGY METHOD 04/30/2025 3:35 AM EDT [facility] nRBC 0.0 <=0.0 per 100 WBCs LAB HEMATOLOGY METHOD 04/30/2025 3:35 AM EDT [facility] Differential Type Automated LAB HEMATOLOGY METHOD 04/30/2025 3:35 AM EDT [facility] Neutrophils % 78 % LAB HEMATOLOGY METHOD 04/30/2025 3:35 AM EDT [facility] Lymphocytes % 11 % LAB HEMATOLOGY METHOD 04/30/2025 3:35 AM EDT [facility] Monocytes % 7 % LAB HEMATOLOGY METHOD 04/30/2025 3:35 AM EDT [facility] Eosinophils % 3 % LAB HEMATOLOGY METHOD 04/30/2025 3:35 AM EDT [facility] Basophils % 0 % LAB HEMATOLOGY METHOD 04/30/2025 3:35 AM EDT [facility] Immature Granulocytes % 1 % LAB HEMATOLOGY METHOD 04/30/2025 3:35 AM EDT [facility] Neutrophils Absolute 6.90(H) 1.60 - 6.10 10*3/uL LAB HEMATOLOGY METHOD 04/30/2025 3:35 AM EDT [facility] Lymphocytes Absolute 0.95(L) 1.20 - 3.90 10*3/uL LAB HEMATOLOGY METHOD 04/30/2025 3:35 AM EDT [facility] Monocytes Absolute 0.64 0.30 - 0.90 10*3/uL LAB HEMATOLOGY METHOD 04/30/2025 3:35 AM EDT [facility] Eosinophils Absolute 0.29 0.00 - 0.50 10*3/uL LAB HEMATOLOGY METHOD 04/30/2025 3:35 AM EDT [facility] Basophils Absolute 0.02 0.00 - 0.10 10*3/uL LAB HEMATOLOGY METHOD 04/30/2025 3:35 AM EDT [facility] Immature Granulocytes Absolute 0.04 0.00 - 0.06 10*3/uL LAB HEMATOLOGY METHOD 04/30/2025 3:35 AM EDT [facility] Blood Venous blood specimen / Unknown Venipuncture / Unknown 04/30/2025 3:19 AM EDT 04/30/2025 3:26 AM EDT Narrative [facility] - 04/30/2025 3:35 AM EDT Therapeutic decision making should be based on absolute values, rather than percentages. us Marjorie Myers MD LAB BLOOD ORDERABLES Final Resul t [facility] [address] [place] [address] * (ABNORMAL) Basic Metabolic Panel, Plasma (04/30/2025 3:19 AM EDT) Glucose, Plasma 254(H) 74 - 99 mg/dL 04/30/2025 3:56 AM EDT [facility] BUN, Plasma 11 7 - 21 mg/dL 04/30/2025 3:56 AM EDT [facility] Creatinine, Plasma 0.77 0.70 - 1.20 mg/dL 04/30/2025 3:56 AM EDT [facility] BUN/Creatinine Ratio 14 04/30/2025 3:56 AM EDT [facility] Sodium, Plasma 137 136 - 145 mmol/L 04/30/2025 3:56 AM EDT [facility] Potassium, Plasma 3.3(L) 3.6 - 4.9 mmol/L 04/30/2025 3:56 AM EDT [facility] Chloride, Plasma 91(L) 97 - 107 mmol/L 04/30/2025 3:56 AM EDT [facility] CO2, Plasma 36(H) 22 - 29 mmol/L 04/30/2025 3:56 AM EDT [facility] Anion Gap 10 6 - 16 mmol/L 04/30/2025 3:56 AM EDT [facility] Total Calcium, Plasma 8.7(L) 8.9 - 10.2 mg/dL 04/30/2025 3:56 AM EDT [facility] eGFRcr 111.1 mL/min/1.7 3m*2 04/30/2025 3:56 AM EDT [facility] Comment:Reported eGFRcr in m L/min/1.73m2 is based the CKD-EPI 2020 equation that does not use a race coefficient. Blood Venous blood specimen / Unknown Venipuncture / Unknown 04/30/2025 3:19 AM EDT 04/30/2025 3:26 AM EDT us Marjorie Myers MD LAB BLOOD ORDERABLES Final Resul t [facility] [address] [place] [address] * (ABNORMAL) Magnesium, Plasma (04/30/2025 3:19 AM EDT) Magnesium, Plasma 1.5(L) 1.9 - 2.4 mg/dL 04/30/2025 3:56 AM EDT [facility] Blood Venous blood specimen / Unknown Venipuncture / Unknown 04/30/2025 3:19 AM EDT 04/30/2025 3:26 AM EDT us Marjorie Myers MD LAB BLOOD ORDERABLES Final Resul t Performing Organization Address City/[facility]/ZIP Co de Phone Number [facility] [address] [place] [address] * Phosphorus, Plasma (04/30/2025 3:19 AM EDT) [facility] Phosphorus, Plasma 2.7 2.5 - 4.5 mg/dL 04/30/2025 3:56 AM EDT [facility] Blood Venous blood specimen / Unknown Venipuncture / Unknown 04/30/2025 3:19 AM EDT 04/30/2025 3:26 AM EDT us Marjorie Myers MD LAB BLOOD ORDERABLES Final Resul t Performing Organization Address [facility] Co de Phone Number [facility] [address] [place] [address] * (ABNORMAL) POCT glucose meter (04/29/2025 7:38 PM EDT) [facility] POCT Glucose 191(H) 74 - [...] 04/29/2025 9:20 PM EDT [facility] Insurance Commissioner ID Ervin Du V 025 9:20 PM EDT [facility] Device ID [id number] 04/29/2025 9:20 PM EDT [facility] Specimen Type POC Capillary 04/29/2025 9:20 PM EDT [facility] Blood Capillary blood specimen / Unknown 04/29/2025 7:38 PM EDT 04/29/2025 9:20 PM EDT us Marjorie Myers MD LAB POINT OF CARE TE ST DOCKED DEVICE UNSOLICITED RESULTS Final Result Performing Organization Address City/[facility] Co de Phone Number [facility] [address] [place] [address] * (ABNORMAL) POCT glucose meter (04/29/2025 5:21 PM EDT) [facility] POCT Glucose 241(H) 74 - [...] Comment 04/29/2025 5:23 PM EDT [facility] Insurance Commissioner ID Rocio Dozier 04/29/20 5:23 PM EDT [facility] Device ID [id number] 04/29/2025 5:23 PM EDT [facility] Specimen Type POC Capillary 04/29/2025 5:23 PM EDT [facility] Blood Capillary blood specimen / Unknown 04/29/2025 5:21 PM EDT 04/29/2025 5:23 PM EDT Marjorie Myers MD LAB POINT OF CARE TE ST DOCKED DEVICE UNSOLICITED RESULTS Final Result [facility] [address] [place] [address] * (ABNORMAL) POCT glucose meter (04/29/2025 11:15 AM EDT) [facility] POCT Glucose 204(H) 74 - [...] 04/29/2025 11:17 AM EDT [facility] Insurance Commissioner ID Rocio Dozier 04/29/20 11:17 AM EDT [facility] Device ID [id number] 04/29/2025 11:17 AM EDT [facility] Specimen Type POC Capillary 04/29/2025 11:17 AM EDT [facility] Blood Capillary blood specimen / Unknown 04/29/2025 11:15 AM EDT 04/29/2025 11:17 AM EDT Marjorie Myers MD LAB POINT OF CARE TE ST DOCKED DEVICE UNSOLICITED RESULTS Final Result [facility] [address] [place] [address] * (ABNORMAL) POCT glucose meter (04/29/2025 7:13 AM EDT) [facility] POCT Glucose 269(H) 74 - 99 [...] Comment 04/29/2025 7:14 AM EDT [facility] Insurance Commissioner ID Rocio Dozier 04/29/20 7:14 AM EDT [facility] Device ID [id number] 04/29/2025 7:14 AM EDT [facility] Specimen Type POC Capillary 04/29/2025 7:14 AM EDT [facility] Blood Capillary blood specimen / Unknown 04/29/2025 7:13 AM EDT 04/29/2025 7:14 AM EDT Marjorie Myers MD LAB POINT OF CARE TE ST DOCKED DEVICE UNSOLICITED RESULTS Final Result [facility] [address] [place] [address] * Folate (04/29/2025 3:04 AM EDT) Pathologist [facility] Folate, Serum 10.5 >4.6 ng/mL 04/29/2025 4:05 AM EDT [facility] Blood Venous blood specimen / Unknown Venipuncture / Unknown 04/29/2025 3:04 AM EDT 04/29/2025 3:20 AM EDT us Sy De La Fuente APRN, DENISE LAB BLOOD ORDERABLES Fin al Result Performing Organization Address City/[facility] Co de Phone Number [facility] [address] [place] [address] * Vitamin B12 (04/29/2025 3:04 AM EDT) Vitamin B12, Serum 338 210 - 1,033 pg/mL 04/29/2025 4:06 AM EDT [facility] Blood Venous blood specimen / Unknown Venipuncture / Unknown 04/29/2025 3:04 AM EDT 04/29/2025 3:20 AM EDT us Sy De La Fuente APRN, DNP LAB BLOOD ORDERABLES Fin al Result Performing Organization Address [facility] de Phone Number [facility] [address] [place] [address] * (ABNORMAL) Iron & Total Iron Binding Capacity, Plasma (Includes Transferrin) (04/29/2025 3:04 AM EDT) Iron, Plasma 36(L) 50 - 170 ug/dL 04/29/2025 3:55 AM EDT [facility] Transferrin, Plasma 197(L) 200 - 360 mg/dL 04/29/2025 3:55 AM EDT [facility] Total Iron Binding Capacity, Plasma 246 240 - 450 ug/mL 04/29/2025 3:55 AM EDT [facility] Transferrin Saturation 15 14 - 50 % 04/29/2025 3:55 AM EDT [facility] Blood Venous blood specimen / Unknown Venipuncture / Unknown 04/29/2025 3:04 AM EDT 04/29/2025 3:19 AM EDT us Sy De La Fuente APRN, DNP LAB BLOOD ORDERABLES Fin al Result Performing Organization Address City/[facility]/ZIP Co de Phone Number [facility] [address] [place] [address] * Ferritin (04/29/2025 3:04 AM EDT) Ferritin, Serum 40 20 - 400 ng/mL 04/29/2025 4:06 AM EDT [facility] Blood Venous blood specimen / Unknown Venipuncture / Unknown 04/29/2025 3:04 AM EDT 04/29/2025 3:20 AM EDT us Sy De La Fuente APRN, DENISE LAB BLOOD ORDERABLES Fin al Result Performing Organization Address City/[facility]/ZIP Co de Phone Number [facility] [address] [place] [address] * Cortisol (04/29/2025 3:04 AM EDT) Cortisol 2.80 Before 10am: 3.7 - 19.4. After 5pm: 2.9 - 17.3 ug/dL 04/29/2025 4:22 AM EDT [facility] Comment:Testing performed on [employer], standardized against JAIL Reference Standard concentration values assigned by LC-MS/MS and verified by BCR 192 and BCR 193 certified reference materials. Blood Venous blood specimen / Unknown Venipuncture / Unknown 04/29/2025 3:04 AM EDT 04/29/2025 3:19 AM EDT us Sy De La Fuente APRN, DNP LAB REF LAB BLOOD AND FL UID ORD Final Result [facility] [address] [place] [address] * TSH (04/29/2025 3:04 AM EDT) Thyroid Stimulating Hormone, Plasma 1.58 0.40 - 4.20 uIU/mL 04/29/2025 3:55 AM EDT [facility] Blood Venous blood specimen / Unknown Venipuncture / Unknown 04/29/2025 3:04 AM EDT 04/29/2025 3:19 AM EDT us Sy De La Fuente COUPON AND BOND COLLECTION CLERK, DNP LAB BLOOD ORDERABLES Fin al Result Performing Organization Address City/[facility]/ZIP Co de Phone Number [facility] [address] [place] [address] * (ABNORMAL) Hemoglobin A1c (04/29/2025 3:04 AM EDT) Hemoglobin A1c 8.9(H) <5.7 % 04/29/2025 9:40 AM EDT [facility] Blood Venous blood specimen / Unknown Venipuncture / Unknown 04/29/2025 3:04 AM EDT 04/29/2025 3:19 AM EDT Narrative [facility] - 04/29/2025 9:40 AM EDT HA1C Interpretive Data: Diagnosis of Diabetes: Diabetic > or = 6.5% Pre-diabetic 5.7 to 6.4% Non-diabetic < or = 5.6% Glycemic Targets for Type I and Type II Diabetics: Non- Adults <7.0% Adults <6.0% Children and Adolescents <7.5% Source: [place] Diabetes Association. Standards of medical care in diabetes,2017. Diabetes Care.2017:40 (suppl 1):S1-S135. Sy Josafat De La Fuente COUPON AND BOND COLLECTION CLERK, DNP LAB BLOOD ORDERABLES Fin al Result Performing Organization Address [facility] Co de Phone Number [facility] [address] [place] [address] * Phosphorus (04/29/2025 3:04 AM EDT) Phosphorus, Plasma 3.6 2.5 - 4.5 mg/dL 04/29/2025 3:55 AM EDT [facility] Blood Venous blood specimen / Unknown Venipuncture / Unknown 04/29/2025 3:04 AM EDT 04/29/2025 3:19 AM EDT us k A [employer] COUPON AND BOND COLLECTION CLERK, DNP LAB BLOOD ORDERABLES Fin al Result Performing Organization Address City/[facility] Co de Phone Number [facility] [address] [place] [address] * (ABNORMAL) Magnesium, Plasma (04/29/2025 3:04 AM EDT) Magnesium, Plasma 1.7(L) 1.9 - 2.4 mg/dL 04/29/2025 3:55 AM EDT [facility] Blood Venous blood specimen / Unknown Venipuncture / Unknown 04/29/2025 3:04 AM EDT 04/29/2025 3:19 AM EDT us Sy De La Fuenet COUPON AND BOND COLLECTION CLERK, DNP LAB BLOOD ORDERABLES Fin al Result [facility] [address] [place] [address] * (ABNORMAL) Comprehensive metabolic panel (04/29/2025 3:04 AM EDT) Glucose, Plasma 219(H) 74 - 99 mg/dL 04/29/2025 3:55 AM EDT [facility] BUN, Plasma 9 7 - 21 mg/dL 04/29/2025 3:55 AM EDT [facility] Creatinine, Plasma 0.94 0.70 - 1.20 mg/dL 04/29/2025 3:55 AM EDT [facility] BUN/Creatinine Ratio 04/29/2025 3:55 AM EDT [facility] Sodium, Plasma 137 136 - 145 mmol/L 04/29/2025 3:55 AM EDT [facility] Potassium, Plasma 3.1(L) 3.6 - 4.9 mmol/L 04/29/2025 3:55 AM EDT [facility] Chloride, Plasma 92(L) 97 - 107 mmol/L 04/29/2025 3:55 AM EDT [facility] CO2, Plasma 38(H) 22 - 29 mmol/L 04/29/2025 3:55 AM EDT [facility] Anion Gap 7 6 - 16 mmol/L 04/29/2025 3:55 AM EDT [facility] Total Calcium, Plasma 8.6(L) 8.9 - 10.2 mg/dL 04/29/2025 3:55 AM EDT [facility] Total Protein 7.4 6.3 - 7.9 g/dL 04/29/2025 3:55 AM EDT [facility] Albumin, Plasma 3.3(L) 3.5 - 5.2 g/dL 04/29/2025 3:55 AM EDT [facility] AST, Plasma 18 10 - 50 U/L 04/29/2025 3:55 AM EDT [facility] ALT, Plasma 11 10 - 50 U/L 04/29/2025 3:55 AM EDT [facility] Alkaline Phosphatase, Plasma 55 40 - 115 U/L 04/29/2025 3:55 AM EDT [facility] Total Bilirubin, Plasma 0.8 0.2 - 1.1 mg/dL 04/29/2025 3:55 AM EDT [facility] eGFRcr 100.6 mL/min/1.7 3m*2 04/29/2025 3:55 AM EDT [facility] Comment:Reported eGFRcr in m L/min/1.73m2 is based the CKD-EPI 2020 equation that does not use a race coefficient. Blood Venous blood specimen / Unknown Venipuncture / Unknown 04/29/2025 3:04 AM EDT 04/29/2025 3:19 AM EDT Sy De La Fuente COUPON AND BOND COLLECTION CLERK, DNP LAB BLOOD ORDERABLES Fin al Result [facility] [address] [place] [address] * (ABNORMAL) CBC and Differential (04/29/2025 3:04 AM EDT) WBC Count 6.68 3.70 - 10.30 10*3/uL LAB HEMATOLOGY METHOD 04/29/2025 3:16 AM EDT [facility] RBC Count 4.21(L) 4.60 - 6.10 10*6/uL LAB HEMATOLOGY METHOD 04/29/2025 3:16 AM EDT [facility] HGB 9.4(L) 13.7 - 17.5 g/dL LAB HEMATOLOGY METHOD 04/29/2025 3:16 AM EDT [facility] HCT 32.0(L) 40.0 - 51.0 % LAB HEMATOLOGY METHOD 04/29/2025 3:16 AM EDT [facility] Platelet Count 249 155 - 369 10*3/uL LAB HEMATOLOGY METHOD 04/29/2025 3:16 AM EDT [facility] MCV 76(L) 79 - 98 fL LAB HEMATOLOGY METHOD 04/29/2025 3:16 AM EDT [facility] MCH 22.3(L) 26.0 - 32.0 pg LAB HEMATOLOGY METHOD 04/29/2025 3:16 AM EDT [facility] MCHC 29.4(L) 30.7 - 35.5 g/dL LAB HEMATOLOGY METHOD 04/29/2025 3:16 AM EDT [facility] RDW 19.6(H) 11.5 - 14.5 % LAB HEMATOLOGY METHOD 04/29/2025 3:16 AM EDT [facility] MPV 8.4(L) 8.8 - 12.5 fL LAB HEMATOLOGY METHOD 04/29/2025 3:16 AM EDT [facility] nRBC 0.0 <=0.0 per 100 WBCs LAB HEMATOLOGY METHOD 04/29/2025 3:16 AM EDT [facility] Differential Type Automated LAB HEMATOLOGY METHOD 04/29/2025 3:16 AM EDT [facility] Neutrophils % 75 % LAB HEMATOLOGY METHOD 04/29/2025 3:16 AM EDT [facility] Lymphocytes % 11 % LAB HEMATOLOGY METHOD 04/29/2025 3:16 AM EDT [facility] Monocytes % 9 % LAB HEMATOLOGY METHOD 04/29/2025 3:16 AM EDT [facility] Eosinophils % 4 % LAB HEMATOLOGY METHOD 04/29/2025 3:16 AM EDT [facility] Basophils % 0 % LAB HEMATOLOGY METHOD 04/29/2025 3:16 AM EDT [facility] Immature Granulocytes % 1 % LAB HEMATOLOGY METHOD 04/29/2025 3:16 AM EDT [facility] Neutrophils Absolute 5.01 1.60 - 6.10 10*3/uL LAB HEMATOLOGY METHOD 04/29/2025 3:16 AM EDT [facility] Lymphocytes Absolute 0.75(L) 1.20 - 3.90 10*3/uL LAB HEMATOLOGY METHOD 04/29/2025 3:16 AM EDT [facility] Monocytes Absolute 0.59 0.30 - 0.90 10*3/uL LAB HEMATOLOGY METHOD 04/29/2025 3:16 AM EDT [facility] Eosinophils Absolute 0.26 0.00 - 0.50 10*3/uL LAB HEMATOLOGY METHOD 04/29/2025 3:16 AM EDT [facility] Basophils Absolute 0.03 0.00 - 0.10 10*3/uL LAB HEMATOLOGY METHOD 04/29/2025 3:16 AM EDT [facility] Immature Granulocytes Absolute 0.04 0.00 - 0.06 10*3/uL LAB HEMATOLOGY METHOD 04/29/2025 3:16 AM EDT [facility] Blood Venous blood specimen / Unknown Venipuncture / Unknown 04/29/2025 3:04 AM EDT 04/29/2025 3:13 AM EDT Narrative [facility] - 04/29/2025 3:16 AM EDT Therapeutic decision making should be based on absolute values, rather than percentages. us Sy De La Fuente COUPON AND BOND COLLECTION CLERK, DNP LAB BLOOD ORDERABLES Fin al Result [facility] [address] [place] [address] * (ABNORMAL) POCT glucose meter (04/28/2025 9:06 [...] Comment 04/28/2025 9:08 PM EDT [facility] Insurance Commissioner ID Frankie Poole 04/28/2025 9:08 PM EDT [facility] Device ID [id number] 04/28/2025 9:08 PM EDT [facility] Specimen Type POC Capillary 04/28/2025 9:08 PM EDT [facility] Blood Capillary blood specimen / Unknown 04/28/2025 9:06 PM EDT 04/28/2025 9:08 PM EDT Marjorie Myers MD LAB POINT OF CARE TE ST DOCKED DEVICE UNSOLICITED RESULTS Final Result [facility] [address] [place] [address] * (ABNORMAL) POCT glucose meter (04/28/2025 5:34 [...] 04/28/2025 5:38 PM EDT [facility] Insurance Commissioner ID Ailyn Finch 5:38 PM EDT [facility] Device ID [id number] 04/28/2025 5:38 PM EDT [facility] Specimen Type POC Capillary 04/28/2025 5:38 PM EDT [facility] Blood Capillary blood specimen / Unknown 04/28/2025 5:34 PM EDT 04/28/2025 5:38 PM EDT Marjorie Myers MD LAB POINT OF CARE TE ST DOCKED DEVICE UNSOLICITED RESULTS Final Result [facility] [address] [place] [address] * (ABNORMAL) POCT glucose meter (04/28/2025 3:51 [...] Comment 04/28/2025 3:54 PM EDT [facility] Insurance Commissioner ID Ailyn Finch 3:54 PM EDT [facility] Device ID [id number] 04/28/2025 3:54 PM EDT [facility] Specimen Type POC Capillary 04/28/2025 3:54 PM EDT [facility] Blood Capillary blood specimen / Unknown 04/28/2025 3:51 PM EDT 04/28/2025 3:54 PM EDT Marjorie Myers MD LAB POINT OF CARE TE ST DOCKED DEVICE UNSOLICITED RESULTS Final Result Performing Organization Address City/State/[facility] de Phone Number [facility] [address] [place] [address] * VAS Ankle Brachial Index - GABBI [...] are demonstrated at the levels of the TELLER SUPERVISOR and DPA. Segmental pressures are within normal limits with a TELLER SUPERVISOR GABBI of 1.1 (172 mmHg) and a DPA GABBI of 1.0 (149 mmHg). Digit pressures are of 122 mmHg. Left: Multiphasic waveforms are demonstrated at the levels of the TELLER SUPERVISOR and DPA. Segmental pressures are within normal limits with a TELLER SUPERVISOR GABBI of 1.1 (164 mmHg) and a DPA GABBI of 1.0 (153 mmHg). Digit pressures are of 151 mmHg. Procedure Note Chris Schaefer MD - 04/28/2025 CLINICAL INDICATION: Diabetic foot ulcer TECHNIQUE: Non-invasive, continuous wave Doppler exam with segmental pressures andspectral analysis of the lower extremity was performed. COMPARISON: None. FINDINGS: Right: Multiphasic waveforms are demonstrated at the levels of the TELLER SUPERVISOR andDPA. Segmental pressures are within normal limits with a TELLER SUPERVISOR GABBI of 1.1(172 mmHg) and a DPA AGBBI of 1.0 (149 mmHg). Digit pressures are of 122mmHg. Left: Multiphasic waveforms are demonstrated at the levels of the TELLER SUPERVISOR andDPA. Segmental pressures are within normal limits with a TELLER SUPERVISOR GABBI of 1.1(164 mmHg) and a DPA [...] MD, FACS, FSVS, RPVI on04/28/2025 4:14 PM us Sy De La Fuente COUPON AND BOND COLLECTION CLERK, DNP CV VASCULAR PROCEDURES F inal Result * Multi Drug Resistance Test (04/28/2025 1:44 PM EDT) [facility] Culture No Multi Drug Resistant Organisms Isolated 04/29/2025 2:32 PM EDT [facility] Swab (Nares and Saba Rectal) Non-blood Collection / Unknown 04/28/2025 1:44 PM EDT 04/28/2025 2:15 PM EDT Narrative [facility] - 04/29/2025 2:32 PM EDT [...] La Fuente APRN, DENISE LAB MICROBIOLOGY - [facility] ORDERABLES Final Result [facility] [address] [place] [address] * (ABNORMAL) POCT glucose meter (04/28/2025 12:52 PM EDT) [facility] POCT Glucose 271(H) 74 - [...] 04/28/2025 12:56 PM EDT [facility] Insurance Commissioner ID Ailyn Finch 12:56 PM EDT [facility] Device ID [id number] 04/28/2025 12:56 PM EDT [facility] Specimen Type POC Capillary 04/28/2025 12:56 PM EDT [facility] Blood Capillary blood specimen / Unknown 04/28/2025 12:52 PM EDT 04/28/2025 12:56 PM EDT us Marjorie Myers MD LAB POINT OF CARE TE ST DOCKED DEVICE UNSOLICITED RESULTS Final Result Performing Organization Address City/[facility] Co de Phone Number [facility] [address] [place] [address] * (ABNORMAL) POCT glucose meter (04/28/2025 11:39 [...] Comment 04/28/2025 11:44 AM EDT [facility] Insurance Commissioner ID Ailyn Finch 11:44 AM EDT [facility] Device ID [id number] 04/28/2025 11:44 AM EDT [facility] Specimen Type POC Capillary 04/28/2025 11:44 AM EDT [facility] Blood Capillary blood specimen / Unknown 04/28/2025 11:39 AM EDT 04/28/2025 11:44 AM EDT us Marjorie yMers MD LAB POINT OF CARE TE ST DOCKED DEVICE UNSOLICITED RESULTS Final Result Performing Organization Address City/[facility]/ZIP Co de Phone Number [facility] [address] [place] [address] * Lavender Top (04/28/2025 8:13 AM EDT) Pathologist [facility] Extra Hold for add-ons 04/28/2025 11:01 AM EDT [facility] Comment:Auto resulted. Blood Venous blood specimen / Unknown 04/28/2025 8:13 AM EDT 04/28/2025 8:19 AM EDT us Marjorie Myers MD LAB BLOOD ORDERABLES Final Resul t [facility] [address] [place] [address] * Light Green Top (04/28/2025 8:13 AM EDT) Extra Hold for add-ons 04/28/2025 11:01 AM EDT [facility] Comment:Auto resulted. Blood Venous blood specimen / Unknown 04/28/2025 8:13 AM EDT 04/28/2025 8:19 AM EDT us Marjorie Myers MD LAB BLOOD ORDERABLES Final Resul t Performing Organization Address [facility]/ZIP Co de Phone Number [facility] [address] [place] [address] * APTT (04/28/2025 8:13 AM EDT) aPTT 32 25 - 35 sec 04/28/2025 8:33 AM EDT [facility] Blood Venous blood specimen / Unknown Venipuncture / Unknown 04/28/2025 8:13 AM EDT 04/28/2025 8:18 AM EDT Sy De La Fuente COUPON AND BOND COLLECTION CLERK, DNP LAB BLOOD ORDERABLES Fin al Result Performing Organization Address City/[facility]/ZIP Co de Phone Number [facility] [address] [place] [address] * (ABNORMAL) PT/INR (04/28/2025 8:13 AM EDT) Prothrombin Time 17.5(H) 12.0 - 14.3 sec 04/28/2025 8:33 AM EDT [facility] INR 1.4(H) 0.9 - 1.1 04/28/2025 8:33 AM EDT [facility] Blood Venous blood specimen / Unknown Venipuncture / Unknown 04/28/2025 8:13 AM EDT 04/28/2025 8:18 AM EDT Narrative [facility] - 04/28/2025 8:33 AM EDT OPTIMAL INR RANGES FOR PATIENT ON ORAL ANTICOAGULANT THERAPY Prevention of venous thromboembolism INR 2.0 to 3.0 In patients with heart disease: Atrial fibrillation INR 2.0 to 3.0 Valvular heart disease INR 2.0 to 3.0 Tissue heart valves INR 2.0 to 3.0 Mechanical prosthetic valves INR 2.5 to 3.5 Prevention of recurrent AK INR 2.5 to 3.5 Sy De La Fuente APRN, DENISE LAB BLOOD ORDERABLES Fin al Result Performing Organization Address City/[facility]/ZIP Co de Phone Number [facility] [address] [place] [address] * ECG Adult (04/28/2025 7:20 AM EDT) EKG DIAGNOSIS CLASS Abnormal MUSE ECG Ventricular Rate 90 BPM MUSE ECG Atrial Rate 90 BPM MUSE ECG OK Interval 206 ms MUSE ECG QRSD Interval 146 ms MUSE ECG QT Interval 450 ms MUSE ECG QTC Interval 550 ms MUSE ECG P [place] 69 degrees MUSE ECG R [place] -32 degrees MUSE ECG T Wave [place] 35 degrees MUSE ECG Diagnosis Baseline Artifact [...] ORDERABLES Final Re sult Performing Organization Address [facility] Co de Phone Number MUSE ECG * (ABNORMAL) POCT glucose meter (04/28/2025 7:17 AM EDT) POCT Glucose 199(H) 74 - 99 mg/dL 04/28/2025 7:21 AM EDT [facility] Comment:Accuracy of a glucos e result [...] Comment 04/28/2025 7:21 AM EDT [facility] Insurance Commissioner ID Ailyn Finch 7:21 AM EDT HEALTHCARE [facility] Device ID [id number] 04/28/2025 7:21 AM EDT HEALTHCARE LAB Specimen Type POC Capillary 04/28/2025 7:21 AM EDT [facility]ALTH[facility]ARE LAB Blood Capillary blood specimen / Unknown 04/28/2025 7:17 AM EDT 04/28/2025 7:21 AM EDT us Greg Lee MD LAB POINT OF CARE TE ST DOCKED DEVICE UNSOLICITED RESULTS Final Result Performing Organization Address City/State/[facility] Co de Phone Number HEALTHCARE LAB [address] [place] [address] * CT Foot Right w IV Contrast [...] TEST ORDERABLES Final Result Performing Organization Address [facility] Co de Phone Number BLOOD BANK [address] * Blood Culture (Aerobic/Anaerobet Set) (04/27/2025 10:16 PM EDT) Culture No growth at day 5 05/03/2025 12:01 AM EDT [facility] Blood Venous blood specimen / Unknown Venipuncture / Unknown 04/27/2025 10:16 PM EDT 04/27/2025 10:53 PM EDT us Jessa Law MD LAB MICROBIOLOGY - [facility] Final Result [facility] [address] [place] [address] * Blood Culture (Aerobic/Anaerobet Set) (04/27/2025 10:16 PM EDT) Culture No growth at day 5 05/03/2025 12:01 AM EDT [facility] Blood Venous blood specimen / Unknown Venipuncture / Unknown 04/27/2025 10:16 PM EDT 04/27/2025 10:53 PM EDT Jessa Law MD LAB MICROBIOLOGY - [facility] SANYA DOMINGUEZ Final Result [facility] [address] [place] [address] * (ABNORMAL) Blood gas, venous (04/27/2025 10:16 PM EDT) pH, Venous 7.47(H) 7.32 - 7.43 LAB HEMATOLOGY METHOD 04/27/2025 10:21 PM EDT [facility] pCO2, Venous 50 40 - 55 mmHg LAB HEMATOLOGY METHOD 04/27/2025 10:21 PM EDT [facility] pO2, Venous 30 25 - 40 mmHg LAB HEMATOLOGY METHOD 04/27/2025 10:21 PM EDT [facility] SO2, Measured, Venous 52(L) 65 - 80 % LAB HEMATOLOGY METHOD 04/27/2025 10:21 PM EDT [facility] Base Excess, Venous 11.6(H) -2.0 - 3.0 mmol/L LAB HEMATOLOGY METHOD 04/27/2025 10:21 PM EDT [facility] Bicarbonate, Calculated, Venous 37(H) 22 - 26 mmol/L LAB HEMATOLOGY METHOD 04/27/2025 10:21 PM EDT [facility] Hematocrit, Whole Blood 30.1(L) 40.0 - 51.0 % LAB HEMATOLOGY METHOD 04/27/2025 10:21 PM EDT [facility] Sodium, Whole Blood 136 136 - 145 mmol/L LAB HEMATOLOGY METHOD 04/27/2025 10:21 PM EDT [facility] Potassium, Whole Blood 2.8(L) 3.6 - 4.9 mmol/L LAB HEMATOLOGY METHOD 04/27/2025 10:21 PM EDT [facility] Chloride, Whole Blood 88(L) 97 - 107 mmol/L LAB HEMATOLOGY METHOD 04/27/2025 10:21 PM EDT [facility] Glucose, Whole Blood 131(H) 74 - 99 mg/dL LAB HEMATOLOGY METHOD 04/27/2025 10:21 PM EDT [facility] Lactate, Venous, Whole Blood 2.0 0.5 - 2.2 mmol/L LAB HEMATOLOGY METHOD 04/27/2025 10:21 PM EDT [facility] Ionized Calcium, Whole Blood 4.2(L) 4.6 - 5.1 mg/dL LAB HEMATOLOGY METHOD 04/27/2025 10:21 PM EDT [facility] Blood Venous blood specimen / Unknown Venipuncture / Unknown 04/27/2025 10:16 PM EDT 04/27/2025 10:20 PM EDT us Jessa Law MD LAB BLOOD ORDERABLES Final Resu lt Performing Organization Address City/[facility]/ZIP Co de Phone Number [facility] [address] [place] [address] * Creatine Kinase, Total, Plasma (04/27/2025 9:37 PM EDT) Creatine Kinase, Plasma 71 49 - 320 U/L 04/28/2025 8:36 AM EDT [facility] Blood Venous blood specimen / Unknown Venipuncture / Unknown 04/27/2025 9:37 PM EDT 04/27/2025 9:40 PM EDT us Sy De La Fuente [employer]LECTION CLERK, DNP LAB BLOOD ORDERABLES Fin al Result [facility] [address] [place] [address] * (ABNORMAL) Procalcitonin (04/27/2025 9:37 PM EDT) Procalcitonin, Plasma 0.11(H) <0.09 ng/mL 04/28/2025 8:36 AM EDT [facility] Blood Venous blood specimen / Unknown Venipuncture / Unknown 04/27/2025 9:37 PM EDT 04/27/2025 9:40 PM EDT Narrative [facility] - 04/28/2025 8:36 AM EDT [...] predict 28 day mortality risk. Please consult www.dqlzgs-hgc-kqcpgcgjhd.Mesitis for more information. Test performed at [facility]. us Sy De La Fuente APRN, DNP LAB BLOOD ORDERABLES Fin al Result Performing Organization Address [facility]/ZIP Co de Phone Number [facility] [address] [place] [address] * (ABNORMAL) Sed rate, automated (04/27/2025 9:37 PM EDT) Sedimentation Rate >111(H) <15 mm/hr 2024 11:10 PM EDT [facility] Blood Venous blood specimen / Unknown Venipuncture / Unknown 04/27/2025 9:37 PM EDT 04/27/2025 9:40 PM EDT us Jessa Law MD LAB BLOOD ORDERABLES Final Resu lt [facility] [address] [place] [address] * (ABNORMAL) Magnesium (04/27/2025 9:37 PM EDT) Magnesium, Plasma 1.2(L) 1.9 - 2.4 mg/dL 04/27/2025 10:11 PM EDT [facility] Blood Venous blood specimen / Unknown Venipuncture / Unknown 04/27/2025 9:37 PM EDT 04/27/2025 9:40 PM EDT Jessa Law MD LAB BLOOD ORDERABLES Final Resu lt Performing Organization Address City/[facility] Co de Phone Number [facility] [address] [place] [address] * Beta-Hydroxybutyric Acid (04/27/2025 9:37 PM EDT) Beta-Hydroxybut yric Acid, Plasma 0.23 <=0.27 mmol/L 04/27/2025 10:56 PM EDT [facility] Blood Venous blood specimen / Unknown Venipuncture / Unknown 04/27/2025 9:37 PM EDT 04/27/2025 9:40 PM EDT Jessa Law MD LAB BLOOD ORDERABLES Final Resu lt Performing Organization Address [facility] Co de Phone Number [facility] [address] [place] [address] * ED HIV 1/2 Antibody/Antigen Screen w/Reflex to HIV 1/2 Differentiation (04/27/2025 9:37 PM EDT) Pathologist [facility] HIV 1 & 2 Antibody/Antigen Screen Non Reactive Non Reactive 04/27/2025 10:41 PM EDT [facility] Comment:Screening for HIV 1 & 2 antibodies, and P24 antigen is NONREACTIVE. No confirmatory testing is required. Blood Venous blood specimen / Unknown Venipuncture / Unknown 04/27/2025 9:37 PM EDT 04/27/2025 10:00 PM EDT Madhu Ritchie MD LAB BLOOD ORDERABLES Final Res ult Performing Organization Address [facility] Co de Phone Number [facility] [address] [place] [address] * Hepatitis C Antibody - ED (04/27/2025 9:37 PM EDT) Hepatitis C Antibody Negative Negative 04/27/2025 10:41 PM EDT [facility] Blood Venous blood specimen / Unknown Venipuncture / Unknown 04/27/2025 9:37 PM EDT 04/27/2025 10:00 PM EDT Madhu Ritchie MD LAB BLOOD ORDERABLES Final Res ult Performing Organization Address [facility] Co de Phone Number [facility] [address] [place] [address] * (ABNORMAL) C-reactive protein (04/27/2025 9:37 PM EDT) CRP, Plasma 82.6(H) <=8.0 mg/L 04/27/2025 10:03 PM EDT [facility] Blood Venous blood specimen / Unknown Venipuncture / Unknown 04/27/2025 9:37 PM EDT 04/27/2025 9:40 PM EDT Narrative [facility] - 04/27/2025 10:03 PM EDT This CRP test is appropriate for assessment of infection, systemic inflammation and/or tissue injury. To assess cardiovascular disease risk order high sensitivity CRP (CRPH). Madhu Ritchie MD LAB BLOOD ORDERABLES Final Res ult Performing Organization Address [facility] Co de Phone Number [facility] [address] [place] [address] * (ABNORMAL) CBC w/diff (04/27/2025 9:37 PM EDT) WBC Count 12.00(H) 3.70 - 10.30 10*3/uL LAB HEMATOLOGY METHOD 04/27/2025 9:43 PM EDT [facility] RBC Count 4.48(L) 4.60 - 6.10 10*6/uL LAB HEMATOLOGY METHOD 04/27/2025 9:43 PM EDT [facility] HGB 10.4(L) 13.7 - 17.5 g/dL LAB HEMATOLOGY METHOD 04/27/2025 9:43 PM EDT [facility] HCT 33.3(L) 40.0 - 51.0 % LAB HEMATOLOGY METHOD 04/27/2025 9:43 PM EDT [facility] Platelet Count 282 155 - 369 10*3/uL LAB HEMATOLOGY METHOD 04/27/2025 9:43 PM EDT [facility] MCV 74(L) 79 - 98 fL LAB HEMATOLOGY METHOD 04/27/2025 9:43 PM EDT [facility] MCH 23.2(L) 26.0 - 32.0 pg LAB HEMATOLOGY METHOD 04/27/2025 9:43 PM EDT [facility] MCHC 31.2 30.7 - 35.5 g/dL LAB HEMATOLOGY METHOD 04/27/2025 9:43 PM EDT [facility] RDW 19.4(H) 11.5 - 14.5 % LAB HEMATOLOGY METHOD 04/27/2025 9:43 PM EDT [facility] MPV 8.3(L) 8.8 - 12.5 fL LAB HEMATOLOGY METHOD 04/27/2025 9:43 PM EDT [facility] nRBC 0.0 <=0.0 per 100 WBCs LAB HEMATOLOGY METHOD 04/27/2025 9:43 PM EDT [facility] Differential Type Automated LAB HEMATOLOGY METHOD 04/27/2025 9:43 PM EDT [facility] Neutrophils % 82 % LAB HEMATOLOGY METHOD 04/27/2025 9:43 PM EDT [facility] Lymphocytes % 9 % LAB HEMATOLOGY METHOD 04/27/2025 9:43 PM EDT [facility] Monocytes % 7 % LAB HEMATOLOGY METHOD 04/27/2025 9:43 PM EDT [facility] Eosinophils % 2 % LAB HEMATOLOGY METHOD 04/27/2025 9:43 PM EDT [facility] Basophils % 0 % LAB HEMATOLOGY METHOD 04/27/2025 9:43 PM EDT [facility] Immature Granulocytes % 0 % LAB HEMATOLOGY METHOD 04/27/2025 9:43 PM EDT [facility] Neutrophils Absolute 9.73(H) 1.60 - 6.10 10*3/uL LAB HEMATOLOGY METHOD 04/27/2025 9:43 PM EDT [facility] Lymphocytes Absolute 1.11(L) 1.20 - 3.90 10*3/uL LAB HEMATOLOGY METHOD 04/27/2025 9:43 PM EDT [facility] Monocytes Absolute 0.80 0.30 - 0.90 10*3/uL LAB HEMATOLOGY METHOD 04/27/2025 9:43 PM EDT [facility] Eosinophils Absolute 0.29 0.00 - 0.50 10*3/uL LAB HEMATOLOGY METHOD 04/27/2025 9:43 PM EDT [facility] Basophils Absolute 0.03 0.00 - 0.10 10*3/uL LAB HEMATOLOGY METHOD 04/27/2025 9:43 PM EDT [facility] Immature Granulocytes Absolute 0.04 0.00 - 0.06 10*3/uL LAB HEMATOLOGY METHOD 04/27/2025 9:43 PM EDT [facility] Blood Venous blood specimen / Unknown Venipuncture / Unknown 04/27/2025 9:37 PM EDT 04/27/2025 9:40 PM EDT Narrative [facility] - 04/27/2025 9:43 PM EDT Therapeutic decision making should be based on absolute values, rather than percentages. us Madhu Ritchie MD LAB BLOOD ORDERABLES Final Res ult [facility] [address] [place] [address] * (ABNORMAL) BMP (04/27/2025 9:37 PM EDT) Glucose, Plasma 135(H) 74 - 99 mg/dL 04/27/2025 10:03 PM EDT [facility] BUN, Plasma 8 7 - 21 mg/dL 04/27/2025 10:03 PM EDT [facility] Creatinine, Plasma 0.84 0.70 - 1.20 mg/dL 04/27/2025 10:03 PM EDT [facility] BUN/Creatinine Ratio 10 04/27/2025 10:03 PM EDT [facility] Sodium, Plasma 135(L) 136 - 145 mmol/L 04/27/2025 10:03 PM EDT [facility] Potassium, Plasma 3.3(L) 3.6 - 4.9 mmol/L 04/27/2025 10:03 PM EDT [facility] Chloride, Plasma 90(L) 97 - 107 mmol/L 04/27/2025 10:03 PM EDT [facility] CO2, Plasma 29 22 - 29 mmol/L 04/27/2025 10:03 PM EDT [facility] Anion Gap 16 6 - 16 mmol/L 04/27/2025 10:03 PM EDT [facility] Total Calcium, Plasma 9.0 8.9 - 10.2 mg/dL 04/27/2025 10:03 PM EDT [facility] eGFRcr 108.2 mL/min/1.7 3m*2 04/27/2025 10:03 PM EDT [facility] Comment:Reported eGFRcr in m L/min/1.73m2 is based the CKD-EPI 2020 equation that does not use a race coefficient. 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 [...] Oral, 2 times daily PRN, Starting on Michaelle 05/04/25 at 1608, Until Michaelle 05/18/25 at 1348, [...] 3 Units, Subcutaneous, Once, 1 dose, On Thu04/30/25 at 1115, Routine Given 04/30/2025 1:59 PM [...] units/mL, First dose (after last reorder) on Sun /2/25 at 0800 Given 05/15/2025 9:11 AM EST [...] dose, On Thu04/27/25 at 2220, STAT New 04/27/2025 10:35 PM EDT 2 g 25 mL/hr magnesium sulfate IVPB 2 g 2 g, Intravenous, Once, 1 dose, On Thu05/03/25 at 0930, Routine New 05/03/2025 9:22 AM EDT 2 g 2 [...] at 0702, Until Thu04/29/25 at 0754, Routine, Moderate/Severe Pain > or [...] 20 mEq, Oral, Once, 1 dose, On [facility] 05/13/25 at 1130, Routine Given 05/13/2025 12:02 PM EDT 20 mEq potassium chloride CR (Klor-Con) ER tablet 40 mEq 40 mEq, Oral, Once, 1 dose, On [facility] 04/29/25 at 0645, Routine Given 04/29/2025 6:45 [...] 0.25 mg Left Lower Abdomen sodium chloride (Rogers) 0.65 % nasal spray 1 spray 1 spray, Each Nostril, As needed, Starting on 05/06/25 at 1208, Until Thu05/09/25 at 0821, Routine, congestion Given 05/07/2025 3:52 AM EDT 1 spray sodium chloride (Rogers) 0.65 % nasal spray 1 spray 1 [...] Herman, LOLA) 0907 (Given - Provider: Kylee Gonzalez, LOLA) bumetanide (Bumex) tablet 4 mg 4 mg, Oral, 3 times daily, First dose on Thu04/28/25 at 0900, Until Discontinued, Routine 0856 (Given - Provider: Deepthi Herman, LOLA)1626 (Given - Provider: Deepthi Herman, LOLA)1999 (Given - Provider: Ivan Slaughter RN) 09 (Given - Provider: Deepthi Herman, RN)170 (Given - Provider: Deepthi Herman, RN)2003 (Given - Provider: Ivan Slaughter RN) 905 (Given - Provider: Kylee Gonzalez RN) cariprazine [...] Until Discontinued, Routine 0856 (Given - Provider: Deephti Herman RN) 0901 (Given - Provider: Deepthi Herman RN) 0906 (Given - Provider: Kylee Gonzalez RN) ferrous sulfate EC tablet 324 mg 324 mg, Oral, Every other day, First dose on Thu05/11/25 at 0900, Until Discontinued, Routine 0901 (Given - Provider: Deepthi Herman RN) finasteride (Proscar) tablet 5 mg 5 mg, Oral, Daily, First dose on 05/06/25 at 1245, Until Discontinued, Routine 0856 (Given - Provider: Deepthi Herman RN) 0901 (Given - Provider: Deepthi Herman RN) 0906 (Given - Provider: Kylee Gonzalez RN) fluticasone [...] LOLA) 0907 (Given - Provider: Deepthi Herman, LOLA)1216 (Given - Provider: Deepthi Herman, LOLA)1729 (Given - Provider: eDepthi Herman RN) 0853 (Not Given - Provider: [...] Herman RN) 09 (Given - Provider: Kylee Gonzalez, LOLA - Comment: [facility]) insulin regular (HumuLIN R U-500) 500 UNIT/ML [...] Herman RN) 09 (Given - Provider: Kylee Gonzalez, LOLA - Comment: [facility]) insulin regular (HumuLIN R U-500) [...] RN) 1107 (Not Given - Provider: Kylee Gonzalez, LOLA - Reason: Hold for condition: must add comment - Comment: Pt to discharge) pantoprazole (Protonix) EC tablet 40 mg 40 mg, Oral, Daily before breakfast, First dose on Thu04/28/25 at 0835, Until Discontinued 0855 (Given - Provider: Deepthi Herman RN) 0901 (Given - Provider: Deepthi Herman, LOLA) 0907 (Given - Provider: Kylee Gonzalez RN - Comment: [facility] perflutren lipid microspheres (Definity) injection 16.3 [...] refused) 1107 (Not Given - Provider: Kylee Gonzalez, LOLA - Reason: Patient/family refused) rivaroxaban (Xarelto) tablet [...] Ivan Slaughter RN)1817 (Given - Provider: Deepthi Herman, LOLA) 0610 (Canceled Entry - Provider: Ivan Slaughter RN) spironolactone (Aldactone) tablet 100 mg 100 mg, Oral, Daily, First dose on Thu04/28/25 at 0900, Until Discontinued 0856 (Given - Provider: Deepthi Herman RN) 0902 (Given - Provider: Deepthi Herman RN) 0906 (Given - Provider: Kylee Gonzalez, LOLA) tamsulosin (Flomax) 24 hr capsule 0.4 mg 0.4 mg, Oral, Daily, First dose on Thu04/28/25 at 0900, Until Discontinued, Routine 0855 (Given - Provider: Deepthi Herman RN) 0901 (Given - Provider: Deepthi Herman, LOLA) 0906 (Given - Provider: Kylee Gonzalez, LOLA) venlafaxine XR (Effexor-XR) 24 hr capsule 150 mg 150 mg, Oral, Daily, First dose on Thu04/28/25 at 0900, Until Discontinued 0854 (Given - Provider: Deepthi Herman, RN) 0900 (Given - Provider: Deepthi Herman, RN) 09 (Given - Provider: Kylee Gonzalez, LOLA) PRN Medication Order 05/16/2025 05/17/2025 05/18/2025 acetaminophen (Tylenol) tablet 1,000 mg 1,000 mg, Oral, Every 6 hours PRN, Starting on Thu05/09/25 at 0820, Until Thu05/18/25 at 1348, Routine, Mild + Pain > or =1: CPOT, DVPRS, FLACC, PAINAD, NPASS, NRS, [place]-Kline Faces; > or =2: NIPS , headaches, fever, fever > 100.4 0856 (Given - Provider: Deepthi Herman RN)1626 (Given - Provider: Deepthi Herman, RN) 0900 (Given - Provider: Deepthi Herman, LOLA) albuterol 108 (90 Base) MCG/ACT inhaler 2 [...] Until Michaelle 05/18/25 at 1348, Routine, cough ipratropium-albuterol (Duo-Neb) 0.5-2.5 mg/3 mL nebulizer solution 3 mL 3 mL, Nebulization, Every 4 hours PRN, Starting on Thu05/09/25 at 0820, Until Michaelle 05/18/25 at 1348, Routine, wheezing LORazepam (Ativan) tablet 1 mg 1 mg, Oral, Daily PRN, Starting on Thu04/28/25 at 0655, Until Michaelle 05/18/25 at 1348, Routine, anxiety 0855 (Canceled Entry - Provider: Deepthi Herman RN) magnesium citrate oral solution 296 mL 296 mL, Oral, Once as needed, 1 dose, Starting on Thu05/15/25 at 1120, Until Michaelle 05/18/25 at 1348, Routine, For constipation oxyCODONE (Roxicodone) [...] Slaughter RN) 0902 (Given - Provider: Deepthi Herman RN)1424 (Given - Provider: Deepthi Herman LOLA)2228 (Given - Provider: Ivan Slaughter, LOLA) 0907 (Given - Provider: Kylee Gonzalez, LOLA) sodium chloride (Rogers) 0.65 % nasal spray 1 spray 1 [...] documented as of this encounter Care Teams Compugraph Operator Relationship Specialty Start Date End Date Malcolm Hayward APRN [address] [facility] [place] [address] PCP - General 09/21/23 documented as of this encounter
--- OUTSIDE RECORDS SUMMARY | 2025-05-01 06:28 | XMS_ITS | Encounter Summary ---
Author Organization Healthcare Address [address] [id number] Care Team Providers Care Inspector Packer Glass Container Name Role Phone MainorMalcolm Rodrick DIANA Primary Care Provider [phone] Reason for Visit * Auth/Cert (Routine) Specialty Diagnoses / Procedures Referred By Anish t Referred To Contact Diagnoses Diabetic foot ulcer with osteomyelitis Greg Lee MD [address] [place] [phone] Phone: tel: fax: [facility] Emergency Department [address] [place] [phone] Phone: tel: Referral ID Status Reason Start Date Expiration Date Visits Re quested Visits Authorized [id number] 1 1 Encounter Details Date Type Department Care Team (Late st Contact Info) Description 05/01/2025 7:28 AM EDT Anesthesia Event [facility] OPERATING ROOM [address] [place] [phone] Gilberto Rivera MD [address] [place] [phone] Hermilo Qiu MD [address] [place] [address] Anesthesia Record Procedure Summary Procedure Name Responsible [...] any time in the past 12 m [facility], were you homeless or living in a snf (including now)? No 04/28/2025 [facility] Utilities Answer Date Recorded In the past 12 months has e [employer], gas, oil, or water company threatened to [...] monitoring: continuous pulse ox, heart rate and classroom monitor Block type: adductor canal and popliteal [...] portions of the procedure(s) and immediately available [facility] services the entire duration. See resident note for details. * Anesthesia Preprocedure Evaluation - Gilberto Rivera MD - 05/01/2025 7:04 AM EDT Anesthesiologist: Gilberto Rivera MD MEDICINE TECHNOLOGIST: Alen Mena CRNA, DENISE Patient: Gonzalo Russell HPI Gonzalo Russell is a 49 y.o. male with body mass index is 76.9 kg/m??. who presents with Diabetic foot ulcer, now for AMPUTATION,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 4th (Right) Procedure Information Date/Time: 05/01/25 07 Procedure: AMPUTATION,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 4th (Right: Toes) Location: [facility] OR / [place] Surgeons: Mary Vicente [...] (NEURONTIN) 600 mg, 3 times daily HYDROcodone-acetaminophen ([place]) 10-325 MG tablet 1 tablet, Every 6 hours PRN Insulin Pen Needle (Pen [place]) 31G X 5 MM [facility] USE TO INJECT INSULIN 3 TIMES PER [...] ABG No results found for: PHART , QNO8XMN , PO2ART , SO2ART , BEART , TLD8PFL , HCTART , SODIUMART , POTASSIUMART , POCTCL , POCGLU , IONCALART , LACTATE Lab Results Component Value Date HCTSYR 30.1 (L) 04/27/2025 KSYR 2.8 (L) 04/27/2025 CLSYR 88 (L) 04/27/2025 GLUSYR 131 (H) 04/27/2025 CAION 4.2 (L) 04/27/2025 ECHO No echocardiogram results found for the past 12 months PFTs No results found for: IXH1SNP , JKD0PHCP , RUV6INE , FVCPRED BP Readings from Last 5 Encounters: 05/01/25 121/76 01/10/25 (!) 156/90 12/17/24 128/65 12/12/24 118/71 09/13/24 (!) 137/90 Physical Exam Airway Mallampati: II Cardiovascular Rhythm: regular Rate: normal Dental Pulmonary (+) decreased breath sounds Neurological Skin Musculoskeletal Extremities Anesthesia Plan ASA 4 Plan was reviewed with: MEDICINE TECHNOLOGIST Anesthesia technique(s) discussed with the patient/family: general, [...] Description 06/22/2025 1:40 PM EST Office Visit [facility] [id number] [place] [address] Mary Vicente MD [address] [place] [address] [address] [place] [address] 06/23/2025 8:00 AM EST Office Visit [facility] [id number] 5th Floor [address] [place] [address] Sheila Marcano PA [address] [place] [address] documented as of this encounter [...] monitoring: continuous pulse ox, heart rate and classroom monitor Block type: adductor canal and popliteal [...] documented as of this encounter Care Teams Inspector Packer Glass Container Relationship Specialty Start Date End Date Malcolm Hayward APRN [address] [place] [address] PCP - General 09/21/23 documented as of this encounter
--- OUTSIDE RECORDS SUMMARY | 2025-05-01 06:30 | XMS_ITS | Encounter Summary ---
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 Name Role Phone DontaemyrtleMalcolm mensah Rodrick DIANA Primary Care Provider [phone] Reason for Visit * Reason Comments Wound Check * Auth/Cert (Routine) Specialty Diagnoses / Procedures Referred By Anish t Referred To Contact Diagnoses Diabetic foot ulcer with osteomyelitis Greg Lee MD [address] [place] [address] Phone: tel: fax: [facility] Emergency Department [address] [place] [address] Phone: tel: Referral ID Status Reason Start Date Expiration Date Visits Re quested Visits Authorized [id number] 1 1 Encounter Details Date Type Department Care Team (Late st Contact Info) Description 05/01/2025 7:30 AM EDT - 05/01/2025 8:50 AM EDT Surgery [facility] OPERATING ROOM [address] [place] [address] Mary Vicente MD [address] [facility] [address] [place] [address] AMPUTATION,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 4th Surgery Details Date/Time Status Location OR Service Patient Class Case Class Case Type Trauma Case? 05/01/2025 7:30 AM Posted [facility] OR 02 Vascular Surgery Inpatient T-Timed: to be done within 24 hours Panel 1 Procedure [facility] [...] in the past 12 m [facility], were you homeless or living in a jail (including now)? No 04/28/2025 [facility] Utilities Answer Date Recorded In the [...] to be (Past 1 Month) No 025 6:45 AM EDT Juliana Marx RN 2. Non-Specific Active Suici jonny Thoughts (Past 1 Month) No 05/01/2025 6:45 AM EDT Marzena Marx RN 6. Suicidal Behavior (Lifetime) No 6:45 AM EDT Juliana Marx RN documented as of this encounter Medications [...] 5 tablet 05/17/2025 Insulin Pen Needle (Pen [place]) 31G X 5 MM misc USE TO [...] capsule by mouth daily. 05/10/2018 HYDROcodone-acetami nophen ([place]) 10-325 MG tablet Take 1 tablet by [...] of care with pt. pt verbalized understanding. 05/18/20251129 by Kylee Gonzalez RN Outcome: Ongoing, Progressing Flowsheets Taken 05/17/20252152 by Ivan Slaughter RN Progress: improving Plan of Care Reviewed With: patient Taken 05/14/20252235 by Florina Hinojosa RN Outcome Evaluation: Reviewed of night plan of care with pt. pt verbalized understanding. Goal: Patient-Specific Goal (Individualized) 05/18/20251130 by Kylee Gonzalez RN Outcome: Ongoing, [...] Goal: Absence of Hospital-Acquired Illness or Injury 05/18/20251130 by Kylee Gonzalez RN Outcome: Ongoing, Progressing 05/18/2025 113 by Kylee Gonzalez RN Outcome: Ongoing, Progressing Goal: Optimal Comfort and Wellbeing 05/18/20251130 by Kylee Gonzalez RN Outcome: Ongoing, [...] RN Outcome: Ongoing, Progressing 05/18/2025 1130 by Klyee Gonzalez RN Outcome: Ongoing, Progressing Intervention: Prevent or Manage Infection Flowsheets Taken 05/18/2025 08 by Kylee Gonzalez RN Isolation Precautions: precautions maintained Taken 05/16/20251948 by Ivan Slaughter RN Infection Management: aseptic technique maintained Fever Reduction/Comfort Measures: lightweight bedding lightweight clothing Problem: Mobility Impairment Goal: Optimal Mobility 05/18/20251130 by Kylee Gonzalez RN Outcome: Ongoing, [...] COPD Symptom Control 05/18/2025 1131 by Kylee Gonzalez RN Outcome: Ongoing, Progressing 05/18/2025 1130 by Kylee Gonzalez RN Outcome: Ongoing, Progressing Goal: Blood Glucose Level Within Target Range 05/18/2025 1131 by Kylee Gonzalez RN Outcome: Ongoing, Progressing 05/18/2025 1130 by Kylee Gonzalez RN Outcome: Ongoing, Progressing Goal: Maintenance of Heart Failure Symptom Control 05/18/2025 1131 by Kylee Gonzalez RN Outcome: Ongoing, Progressing 05/18/2025 1130 by Kylee Gonzalez, LOLA Outcome: Ongoing, Progressing Goal: Blood Pressure in Desired Range 05/18/2025 1131 by Kylee Gonzalez, LOLA Outcome: Ongoing, Progressing 05/18/2025 1130 by Kylee Gonzalez RN Outcome: Ongoing, Progressing Goal: Maintenance of Osteoarthritis Symptom Control 05/18/2025 1131 by Kylee Gonzalez RN Outcome: Ongoing, Progressing 05/18/2025 1130 by Kylee Gonzalez RN Outcome: Ongoing, Progressing Goal: Bariatric Home Regimen Maintained 05/18/2025 1131 by Kylee Gonzalez RN Outcome: Ongoing, Progressing 05/18/2025 1130 by Kylee Gonzalez RN Outcome: Ongoing, Progressing Goal: Maintenance of Seizure Control 05/18/2025 1131 by Kylee Gonzalez RN Outcome: Ongoing, Progressing 05/18/2025 1130 by Kylee Gonzalez RN Outcome: Ongoing, Progressing Problem: Wound Goal: [...] pattern promoted natural light exposure provided Taken 05/17/20252227 by Ivan Slaughter RNplaster foreman Interventions: medication (see MAR) Goal: Optimal Wound [...] Intervention: Optimize Psychosocial Wellbeing Flowsheets Taken 05/17/2025 2153 by Ivan Slaughter RN Supportive Measures: active listening utilized self-care encouraged Taken 05/15/2025 1148 by Santy Garcia, RN Diversional Activities: television Intervention: Develop Pain Management Plan Flowsheets (Taken 05/17/2025 2228 by Ivan Slaughter RN) Pain Management Interventions: [...] Outcome: Ongoing, Progressing 05/18/2025 1130 by Kylee Gonazlez RN Outcome: Ongoing, Progressing Intervention: Promote Activity and Functional [place] Flowsheets Taken 05/18/2025 1131 by Kylee Gonzalez [...] DO PCP name and Address: Malcolm Hayward, RISK MANAGEMENT PROFESSIONAL [address] [place] [address] / [facility] [address] Brief History of Present Illness 49 M [...] extremity. He was accepted for discharge to [facility] rehab facility. Urinary Retention and [...] He was medically stable for discharge to [facility] rehab facility, with recommendations for [...] HYDROcodone-acetaminophen 10-325 MG tablet Commonly known as: [place] Take 1 tablet by mouth every 6 [...] the skin 1 time per week. [place] 31G X 5 MM [facility] USE TO INJECT INSULIN 3 TIMES PER [...] Your Medications These medications were sent to [facility] [address] [address] gabapentin 600 MG tablet HYDROcodone-acetaminophen 10-325 MG tablet insulin regular 100 UNIT/ML injection vial insulin regular 500 UNIT/ML CONCENTRATED injection vial Information about where to get these medications is not yet available Ask your nurse or doctor about these medications ferrous sulfate 324 MG tablet delayed-release Discharge Diagnosis Medical Problems Active and Resolved Hospital Problems Hospital Morbid obesity ([facility]) Hypertension Type 2 diabetes Overview Signed [...] Department Center 05/18/2025 9:30 AM AMBULANCE ADULT [facility] 05/30/2025 2:40 PM [facility] Marcano [facility] 06/14/2025 1:40 PM Divine Archer APRN [facility] 06/22/2025 1:40 PM Mary Vicente MD [facility] Pertinent Physical Exam At Time [...] Note Gonzalo Smalls 49 y.o. 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 Patient/Family Anticipated Services at Transition: [...] Recieved By: Gonzalo Smalls- the patient Follow-up: [facility] [address], [address] [facility] [id number] Primary care provider (PCP) Malcolm Hayward, RISK MANAGEMENT PROFESSIONAL [address] [facility] [address] Discharge Transportation: Transportation Anticipated: medical transport Transportation Home at Discharge: Medical Transport Has discharge transport been arranged?: Yes What day is the transport expected?: 05/18/25 What time is the transport expected?: 929 Follow Up Transport: Transportation Needed to Follow up Appoinments: Family/Friend will Provide Additional Comments: Discussed with multids[facility] team, per attending janee Goyal pt is medically ready to d/c. Pt was referred and accepted by Merly Espinoza RN CM spoke with Araceli in admission who confirmed pt's acceptance #[phone]. Pt updated and in agreement with d/c plan. Team and bedside RN updated. Bedside RN to call report to #[phone]. Araceli has access to [employer] and will get d/c s [facility] that way. Script for controlled medication to be sent to [facility] [place]. Ambulance to transport the pt is [...] Mobility Bed Mobility Exam: Scooting/Bridging Level of Troy: Contact guard Physical/Nonphysical Assist: Verbal Cues, Minimal cues Assistive Device: Overhead trapeze Bed Mobility Exam: Supine to Sit Level of Troy: Minimum assist (75% patient's effort) Physical/Nonphysical Assist: HOB elevated, Verbal Cues, Minimal cues Assistive Device: Overhead trapeze Bed Mobility Exam: Sit to Supine Level of Troy: Stand-by assist Physical/Nonphysical Assist: Verbal Cues, Minimal cues Assistive Device: Overhead trapeze Transfers Transfer Exam: Sit to stand Level of Troy: Maximum assist (25% patient's effort) Physical/Nonphysical Assist: Verbal Cues, Nonverbal cues (demo/gestures), Additional assist utilized for safety, Set-up required, Minimal cues Assistive Device: Walker, rolling (bariatric) Transfer Exam: Stand to Sit Level of Troy: Maximum assist (25% patient's effort) Physical/Nonphysical Assist: [...] help from Spouse Level of Mobility Mobility [place] Independent gait with device History of Falls [...] go, I'm just nervous. Visitors Present No Sales Support Associate (if applicable) Sales Support Associate: Not Applicable OBJECTIVE PAIN Pt was without c/o pain at the beginning of this session and throughout the PT treatment. Prior to STREET CAR MECHANIC's departure: * rest was provided * patient [...] by this therapist: BED MOBILITY Level of Troy Physical/Non- physical Assist Adaptive Equipment Utilized Rolling/ Turning Contact guard Verbal Cues, Set-up required, Minimal cues Bed rails, Other (INVESTIGATIVE AGENT) Scooting/ Bridging Contact guard Verbal Cues, Minimal [...] breaks between standing trials. TRANSFERS Level of Troy Physical/Non- physical Assist Adaptive Equipment Utilized Sit [...] placement, sequencing, weight shifting, appropriate use of INVESTIGATIVE AGENT, and maintaining NWB on RLE. Tactile cues provided to assist in sequencing and weight shifting. AMBULATION Level of Troy Distance Adaptive Equipment Utilized Ambulation N/A N/A N/A Comments Unable to side step or progress to forward hop step at bariatric RW level due to inabilityto maintain prolonged standing position while maintaining NWB in RLE. BALANCE Postural Appearance Posture: Within Functional Limits, Forward head Level of Troy Balance Support Activities Static Sit Standby assist [...] Abduction * Ankle pumps x1-[address] CAR MECHANIC provided minimal verbal and tactile cueing to [...] overall. Standardized Assessments Standardized Assessments Standardized Assessments: [facility] 6-Clicks Mobility Assessment [facility] 6-Clicks Mobility Assessment Difficulty patient has turning [...] climbing 3-5 steps with a railing?: Unable [facility] 6-Clicks Mobility Assessment Total : 11 PATIENT / FAMILY EDUCATION Patient was educated regarding the PT POC and recommendations regarding discharge planning, as wellas progressively increased time spent out of bed/up to chair, and continued mobilization / ambulation with nursing staff as tolerated to promote increased activity tolerance and Endurance. STREET CAR MECHANIC providing verbal cues/demonstration for pursed-lip breathing technique to promote improved ventilation, decreased respiratory rate and energy conservation with activity. STREET CAR MECHANIC stressed to patient the importance of having [...] await final dc plan for - home Matthewempyris, patient supplied Urinary retention s/p barber - HX several months worsening progressive urinary retention since was hospitalized for abdominal infection which has been following with urology outpatient at [facility]. 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 Also discussed contacting Outcome Referrals directly for the financial assistance program. -hopefully [...] team via secure chat or page us [phone] during 7a-7p, Thursday-Thursday. For after hours please [...] Ongoing, Progressing Intervention: Promote Activity and Functional [place] Flowsheets (Taken 05/16/2025 1949) Self-Care Promotion: independence encouraged * Progress Notes - Chayo Jennings RN - 05/16/2025 2:16 PM EST Case Management Adult Progress Note Gonzalo Smalls 49 y.o. male CSN: [id number] Admission: 04/27/2025 9:29 PM Primary Problem: Diabetic foot ulcer Anticipated Discharge Date: 05/18/25 Pt is in a need for rehab placement and was referred and accepted by Merly Espinoza- LOLA CM spoke with Araceli in admission, ph#[phone] who confirmed pts acceptance. Pt updated and [...] Note Gonzalo Smalls 49 y.o. male CSN: [id number] This is a 49 y.o. male patient was admitted to [facility] with the diagnosis of Diabetic Foot Ulcer, [...] Hayward APRN, [facility] is Dr. Garvey in [place], [place]. Medication Education instructions given: The use [...] Prevention , pt reports he has a superintendent maintenance as well Follow Ups: Provided with educational [...] has been following with urology outpatient at [facility]. They have postulated this to [...] the video go to this web address: [email or web address] Or, scan this QR code with your [...] to gently smooth the nail. Have a superintendent maintenance trim your nails if you can't see [...] remove corns, calluses, or warts by yourself. Mywh-yoi-ndiefkl products can burn or damage your skin. [...] your primary care doctor or by a superintendent maintenance. This is a doctor who specializes in foot care. Some diabetes centers have regular foot clinics. Last Reviewed Date: 2024 00:00:00 ?? [id number] [employer]. All rights reserved. This information is not intended as a substitute for professional medical care. Always follow your healthcare professional's instructions. * Ruy Baires - Vivian Garcia RN - 05/16/2025 11:06 AM EST Images from the original note were not included. [id number] Inspecting Your Feet (Diabetes) [id number]: Last Reviewed Date: 2024 00:00:00 ?? [id number] [employer]. All rights reserved. 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 Also discussed contacting Outcome Referrals directly for the financial assistance program. -patient with plans to discharge to [facility] once able - need to check with [facility] to see if they are okay with utilizing U500 insulin if patient is able to bring in his own supply Insulin regimen - would like patient to utilize U500 home dosing at [facility] Continue Dexcom G7 CGM Likely continue Ozempic [...] team via secure chat orpage us at [phone] during 7a-7p, Thursday-Thursday. For after hours please contact the on-call Endocrine Fellow. Thank you for the opportunity to participate in this patient's care. - Reviewed notes by primary team and consulting services to determine appropriate plan of care as in the note. - Discussed plan and management with patient and dye weigher Time Spent: I personally spent a total [...] Note Gonzalo Smalls 49 y.o. male CSN: [id number] Room/Bed 117/117A Nutrition evaluation type: follow-up Reason [...] Supplemental oxygen O2 Delivery Method: Nasal cannula [place] Coma Scale Score: 15 Miguel Ángel Scale [...] Weight Evaluation: Extreme Obesity (BMI > 40) [place] Body Weight (kg): 80.9 Percent [place] Body Weight: 311 Adjusted Body Weight (kg): [...] Regular Adult Carbohydrate Restriction: Consistent CHO 2 (6150-6330 Steven, 80 g/meal) Adult Sodium Restriction: 2,000 [...] Support Patient and Family Response Flowsheets (Taken 05/16/202521) Supportive Measures: active listening [...] has been following with urology outpatient at [facility]. They have postulated this to be related to his diabetes and have had several voiding trials which have failed. Also has un dergone proctoscopy (?) which was normal. 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 and he [...] plan and management with patient. Selin Lee Chemical Plant Operator Supervisor Division of Hospital Medicine [facility] * Care Plan - Santy Garcia RN [...] Note Gonzalo Smalls 49 y.o. male CSN: [id number] Admission: 04/27/2025 9:29 PM Primary Problem: Diabetic foot ulcer Anticipated Discharge Date: TBD Pt was referred to many SNF in and out of [place]. Few SNF are considering accepting the pt along with [facility], ph#[phone]. LOLA TOVAR spoke with Araceli- admission at [facility]. Araceli is stating that she is checking if they can order lift needed for the pt and will call back. Team aware. LOLA TOVAR will continue to follow and assist as needed. 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 Also discussed contacting Outcome Referrals directly for the financial assistance program. -patient with plans to discharge to [facility] once able - need to check with [facility] to see if they are okay with utilizing U500 insulin if patient is able to bring in his own supply Insulin regimen - would like patient to utilize U500 home dosing at [facility] Continue Dexcom G7 CGM Likely continue Ozempic [...] team via secure chat orpage us at [phone] during 7a-7p, Thursday-Thursday. 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 Also discussed contacting Outcome Referrals directly for the financial assistance program. -patient with plans to discharge to [facility] once able - need to check with [facility] to see if they are okay with utilizing U500 insulin if patient is able to bring in his own supply Insulin regimen - would like patient to utilize U500 home dosing at [facility] Continue Dexcom G7 CGM Likely continue Ozempic [...] via secure chat or page us at [phone] during 7a-7p, Thursday-Thursday. For after hours please [...] Ongoing, Progressing Intervention: Promote Activity and Functional [place] Flowsheets Taken 05/14/2025 0946 Self-Care Promotion: independence encouraged BADL personal objects within reach BADL personal routines maintained meal set-up provided Taken 05/14/2025 0800 Activity Assistance Provided: assistance, stand-by assistance, 2 people Taken 05/13/2025 0931 Adaptive Equipment Use: used independently Problem: Self-Care Deficit Goal: Improved Ability to Complete Activities of Daily Living Outcome: Ongoing, Progressing Intervention: Promote Activity and Functional [place] Flowsheets Taken 05/14/2025 0946 Self-Care Promotion: independence [...] has been following with urology outpatient at [facility]. They have postulated this to be related to his diabetes and have had several voiding trials which have failed. Also has un dergone proctoscopy (?) which was normal. 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 and he [...] plan and management with patient. Selin Lee Chemical Plant Operator Supervisor Division of Hospital Medicine [facility] * Care Plan - Asiya Nix RN [...] Note: Oxygen therapy provided 05/13/20252150 by Asiya Nix, LOLA Outcome: Ongoing, Progressing Goal: Maintenance of Behavioral [...] Ongoing, Progressing Intervention: Promote Activity and Functional [place] Flowsheets (Taken 05/13/20251999) Activity Assistance Provided: assistance, [...] (H) 05/11/2025 I reviewed bg tracing in [facility] glucose timeline 05/13/25 ASSESSMENT Hospital Course: [...] -Diabetes education: completed 05/10 -Follow-up plan: home forest firefighter - Anette Kendall -Tentative discharge recommendations: -pt [...] at $35 per vial. Also discussed contacting Outcome Referrals directly for the financial assistance program. -patient with plans to discharge to [facility] once able - need to check with [facility] to see if they are okay with utilizing U500 insulin if patient is able to bring in his own supply Insulin regimen - would like patient to utilize U500 home dosing at [facility] Continue Dexcom G7 CGM Likely continue Ozempic [...] via secure chat or page us at [phone] during 7a-7p, Thursday-Thursday. For after hours please [...] Review Outcome: Ongoing, Progressing Flowsheets (Taken 05/13/2025 7725) Progress: improving Plan of Care Reviewed With: [...] Ongoing, Progressing Intervention: Promote Activity and Functional [place] Flowsheets Taken 05/13/2025 0931 Adaptive Equipment Use: [...] has been following with urology outpatient at [facility]. They have postulated this to be related to his diabetes and have had several voiding trials which have failed. Also has un dergone proctoscopy (?) which was normal. 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 and he [...] plan and management with patient. Selin Lee Chemical Plant Operator Supervisor [facility] * Care Plan - Haritha Lam [...] Ongoing, Progressing Intervention: Promote Activity and Functional [place] Flowsheets (Taken 05/12/20252128) Activity Assistance Provided: assistance, 2 people Self-Care Promotion: independence encouraged BADL personal objects within reach BADL personal routines maintained meal set-up provided * Progress Notes - Max Alexander - 05/12/2025 4:32 PM EDT Case Management Adult Progress Note Gonzalo Smalls 49 y.o. male CSN: [id number] Admission: 04/27/2025 9:29 PM Primary Problem: Diabetic foot ulcer Anticipated Discharge Date: TBD Plan of care reviewed with pt's care team; and per MD, pt is medically ready for discharge pending placement. SW sent 145 Referral via [facility]. SW will continue to follow-up with pt's MD and care team on their progress and discharge plan. Max Alexander, FORENSIC ARTIST, OPTIMIZATION ENGINEER Senior Scraper Hand/Case Management [facility] * Progress Notes - Selin [...] has been following with urology outpatient [facility]. They have postulated this to be related to his diabetes and have had several voiding trials which have failed. Also has un dergone proctoscopy (?) which was normal. 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 and he [...] [facility]. [facility] is [...] plan and management with patient. 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 Also discussed contacting Outcome Referrals directly for the financial assistance program. -patient with plans to discharge to [facility] once able - need to check with [facility] to see if they are okay with utilizing U500 insulin if patient is able to bring in his own supply Insulin regimen - would like patient to utilize U500 home dosing at [facility] Continue Dexcom G7 CGM Likely continue Ozempic [...] via secure chat or page us at [phone] during 7a-7p, Thursday-Thursday. For after hours please [...] 1. Other chronic osteomyelitis of right foot ([facility]) 2. Diabetic foot ulcer with osteomyelitis [...] remission, Anxiety disorder, unspecified, Arthritis, Atrial fibrillation ([facility]), CAP (community acquired pneumonia) (05/19/2024), Cellulitis [...] understanding. Participants in Care Family/Caregiver Present: No Sales Support Associate: Not Applicable Presentation Oxygen Therapy: Supplemental oxygen [...] of Function Receives Help From: Spouse Mobility Troy: Independent gait with device ADL Performance: Needs assistance Bathing: Needs assist Upper Body Dressing: Needs assist Lower Body Dressing: Needs assist Grooming: Needs assist Toileting: Independent Eating: Independent Home Management Skills: Needs assist Patient/Family Goals Return home at [facility] Objective Pain Pt reported 7/10 pain in [...] Mobility Bed Mobility Exam: Scooting/Bridging Level of Troy: Contact guard (scooting hips forward to edge of bed) Physical/Nonphysical Assist: Verbal Cues, Minimal cues Assistive Device: Overhead trapeze Bed Mobility Exam: Supine to Sit Level of Troy: Minimum assist (75% patient's effort) Physical/Nonphysical Assist: HOB elevated, Verbal Cues Assistive Device: Overhead trapeze Bed Mobility Exam: Sit to Supine Level of [place]: Stand-by assist Physical/Nonphysical Assist: Verbal Cues, Minimal cues Assistive Device: Overhead trapeze Transfers Transfer Exam: Sit to stand Level of [place]: Maximum assist (25% patient's effort) (x3 reps from edge of bed, good adherence to NWB RLE) Physical/Nonphysical Assist: Verbal Cues, Nonverbal cues (demo/gestures), Additional assist utilized for safety Assistive Device: Walker, rolling (bariatric) Transfer Exam: Stand to Sit Level of Troy: Maximum assist (25% patient's effort) Physical/Nonphysical Assist: [...] climbing 3-5 steps with a railing?: Unable [facility] 6-Clicks Mobility Assessment Total : 11 Assessment [...] 1. Other chronic osteomyelitis of right foot ([facility]/HCC) 2. Diabetic foot ulcer with [...] session. Participants in Care Family/Caregiver Present: No Sales Support Associate: Not Applicable Presentation Oxygen Therapy: Supplemental oxygen [...] of Function Receives Help From: Spouse Mobility Troy: Independent gait with device ADL Performance: Needs [...] Mobility Bed Mobility Exam: Scooting/Bridging Level of Troy: Contact guard (scooting hips forward to edge of bed) Physical/Nonphysical Assist: Verbal Cues, Minimal cues Bed Mobility Exam: Supine to Sit Level of [place]: Minimum assist (75% patient's effort) Physical/Nonphysical Assist: HOB elevated, Verbal Cues Assistive Device: Overhead trapeze Bed Mobility Exam: Sit to Supine Level of [place]: Stand-by assist Physical/Nonphysical Assist: Verbal Cues, Minimal cues Assistive Device: Overhead trapeze Transfers Transfer Exam: Sit to stand Level of [place]: Maximum assist (25% patient's effort) (x3 reps from edge of bed, good adherence to NWB RLE) Physical/Nonphysical Assist: Verbal Cues, Nonverbal cues (demo/gestures), Additional assist utilized for safety Assistive Device: Walker, rolling (bariatric) Transfer Exam: Stand to Sit Level of [place]: Maximum assist (25% patient's effort) Physical/Nonphysical Assist: [...] upper extremity support, Left upper extremity support ([facility] RW) Static Standing-Level of Assistance: [...] x3 reps of sit to stand to [facility] RW with max Ax2 persons [...] Where Assessed: Other (Comment) (in stance at [facility] RW level) Toileting Interventions: Pt with small incontinent BM, required dep A for hygiene to buttocks in stance at [facility] RW level with assistance from [...] a helper. 5 Set-up or Clean-up Assistance Casselberry sets up or cleans up; patient completes activity. Casselberry assists only prior to or following the activity. 4 Supervision or touching assistance Casselberry provides verbal cues and/or touching/steadying and/or contact guard assistance as patient completes activity. Assistance may be provided throughout the activity or intermittently. 3 Partial/Moderate Assistance Casselberry does LESS THAN HALF the effort. Casselberry lifts, holds or supports trunk or limbs, but provides less than half the effort. 2 Substantial/Maximal Assistance Casselberry does MORE THAN HALF the effort. Casselberry lifts or holds trunkor limbs and provides more than half the effort. 1 Dependent Casselberry does ALL of the effort. Patient does [...] at 1:06 PM. * Progress Notes - Sucurovic, Chayo, RN - 05/12/2025 11:51 AM EDT Case Management Adult Progress Note Gonzalo Smalls 49 y.o. male CSN: [id number] Admission: 04/27/2025 9:29 PM Primary Problem: Diabetic foot ulcer Anticipated Discharge Date: TBD RN CM informed by bedside RN that pt's weight was obtained and current weight is 244.3kg (538.5 lbs)- due to pt being over 500 lbs [facility] is not able to accept the [...] Note Gonzalo Smalls 49 y.o. male CSN: [id number] Admission: 04/27/2025 9:29 PM Primary Problem: Diabetic foot ulcer Anticipated Discharge Date: TBD LOLA TOVAR f/ u with Suze- admission at [facility]. Suze is stating that they might [...] epic glucose timeline 05/11/25 ASSESSMENT Hospital Course: Gonzaol Smalls is a 49 y.o. 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 Also discussed contacting Outcome Referrals directly for the financial assistance program. -patient with plans to discharge to [facility] once able - need to check with [facility] to see if they are okay with utilizing U500 insulin if patient is able to bring in his own supply Insulin regimen - would like patient to utilize U500 home dosing at [facility] Continue Dexcom G7 CGM Likely continue Ozempic [...] via secure chat or page us at [phone] during 7a-7p, Thursday-Thursday. For after hours please [...] Review Outcome: Ongoing, Progressing Flowsheets Taken 05/11/2025 0900 Progress: improving Plan of Care Reviewed With: [...] has been following with urology outpatient at [facility]. They have postulated this to be related to his diabetes and have had several voiding trials which have failed. Also has un dergone proctoscopy (?) which was normal. 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 and he [...] plan and management with patient. Selin Lee Chemical Plant Operator Supervisor Division of [facility] Medicine [facility] * Care Plan - Haritha Lam - 05/10/2025 10:38 PM EDT Problem: Skin [...] Progressing Intervention: Promote Wound Healing Flowsheets (Taken 05/10/20252237) Sleep/Rest Enhancement: awakenings minimized consistent schedule promoted [...] has been following with urology outpatient at [facility]. They have postulated this to be related to his diabetes and have had several voiding trials which have failed. Also has un dergone proctoscopy (?) which was normal. 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 and he [...] FULL CODE Medically Ready for Discharge:Ready now, [facility] denied admission, referral sent for [facility] [...] plan and management with patient. Selin Lee Chemical Plant Operator Supervisor Division of Hospital Medicine [facility] * Progress Notes - Chayo Jennings RN - 05/10/2025 8:59 AM EDT Case Management Adult Progress Note Gonzalo Smalls 49 y.o. male CSN: [id number] Admission: 04/27/2025 9:29 PM Primary Problem: Diabetic foot ulcer Anticipated Discharge Date: TBD LOLA CM f/u on [facility] referral and was told that [facility] physician declined pt's acceptance to [facility]. 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 Also discussed contacting Outcome Referrals directly for the financial assistance program. -patient with plans to discharge to [facility] once able - need to check with [facility] to see if they are okay with utilizing U500 insulin if patient is able to bring in his own supply Insulin regimen - would like patient to utilize U500 home dosing at [facility] Continue Dexcom G7 CGM Likely continue Ozempic [...] Adult Inpatient Diabetes team via secure chat orpaHSystem us at [phone] during 7a-7p, Thursday-Thursday. For after hours please [...] Intervention: Promote Wound Healing Flowsheets (Taken 05/10/2025 0778) Sleep/Rest Enhancement: consistent schedule promoted natural light [...] Jennifer Saldana Progress: improving Taken 05/07/20251999 by Jdud Zavaleta RN Plan of Care Reviewed With: [...] sit <> stand transfers Visitors Present none Sales Support Associate (if applicable) N/a OBJECTIVE PAIN Pt endorses [...] Mobility Bed Mobility Exam: Scooting/Bridging Level of Troy: Stand-by assist Physical/Nonphysical Assist: Verbal Cues, Minimal cues Assistive Device: Overhead trapeze Bed Mobility Exam: Supine to Sit Level of Troy: Stand-by assist Physical/Nonphysical Assist: Verbal Cues, Minimal cues, HOB elevated Assistive Device: Overhead trapeze Bed Mobility Exam: Sit to Supine Level of Troy: Stand-by assist Physical/Nonphysical Assist: Verbal Cues, Minimal cues Assistive Device: Overhead trapeze Transfers Transfer Exam: Sit to stand Level of Troy: Maximum assist (25% patient's effort) Physical/Nonphysical Assist: Set-up required, Additional assist utilized for safety, Maximal cues, Verbal Cues, Nonverbal cues (demo/gestures) Assistive Device: Hand held assist Transfer Exam: Stand to Sit Level of Troy: Maximum assist (25% patient's effort) Physical/Nonphysical Assist: [...] session Participants in Care Family/Caregiver Present: No Sales Support Associate: Not Applicable Presentation Oxygen Therapy: Supplemental oxygen [...] sequencing Bed Mobility Exam: Scooting/Bridging Level of [place]: Stand-by assist Physical/Nonphysical Assist: Verbal Cues, Minimal cues Assistive Device: Overhead trapeze Bed Mobility Exam: Supine to Sit Level of Troy: Stand-by assist Physical/Nonphysical Assist: Verbal Cues, Minimal cues, HOB elevated Assistive Device: Overhead trapeze Bed Mobility Exam: Sit to Supine Level of Troy: Stand-by assist Physical/Nonphysical Assist: Verbal Cues, Minimal [...] placement, sequencing, weight shifting, appropriate use of INVESTIGATIVE AGENT, and maintaining NWB on LLE. Tactile cues provided to assist in sequencing and weight shifting. Transfer Exam: Sit to stand Level of Troy: Maximum assist (25% patient's effort) Physical/Nonphysical Assist: Set-up required, Additional assist utilized for safety, Maximal cues, Verbal Cues, Nonverbal cues (demo/gestures) Assistive Device: Hand held assist Transfer Exam: Stand to Sit Level of Troy: Maximum assist (25% patient's effort) Physical/Nonphysical Assist: [...] assistance Static Standing - Interventions: Standing w INVESTIGATIVE AGENT Therapeutic Activity (40 minutes) See bed mobility, balance, and transfers sections for more detail. Standardized Assessments [facility] 6-Clicks Mobility Assessment Difficulty patient has turning [...] climbing 3-5 steps with a railing?: Unable [facility] 6-Clicks Mobility Assessment Total : 13 Assessment [...] Note Gonzalo Smalls 49 y.o. male CSN: [id number] Room/Bed 117/117A Nutrition evaluation type: follow-up Reason [...] Supplemental oxygen O2 Delivery Method: Nasal cannula [place] Coma Scale Score: 15 Miguel Ángel Scale [...] Weight Evaluation: Extreme Obesity (BMI > 40) [place] Body Weight (kg): 80.9 Percent [place] Body Weight: 311 Adjusted Body Weight (kg): [...] Regular Adult Carbohydrate Restriction: Consistent CHO 2 (8551-8484 Steven, 80 g/meal) Adult Sodium Restriction: 2,000 [...] sodium chloride * Progress Notes - Lynda Choudhury APRN - 05/09/2025 8:09 AM EDT Endocrine - [...] (H) 05/07/2025 I reviewed bg tracing in [facility] glucose timeline 05/09/25 ASSESSMENT Hospital Course: [...] continue to assess need -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 For after hours please [...] has been following with urology outpatient at [facility]. They have postulated this to be related to his diabetes and have had several voiding trials which have failed. Also has un dergone proctoscopy (?) which was normal. 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 For after hours please [...] Note Gonzalo Smalls 49 y.o. male CSN: [id number] Admission: 04/27/2025 9:29 PM Primary Problem: Diabetic [...] acute rehab. RNCM awaiting MD approval from [facility]. Liaison will reach out with answer. Will continue to follow. RNCM will continue to monitor for further discharge needs. Mayra Apodaca RN * Care Plan - Jeevan Shah RN - 05/08/2025 12:43 PM EDT Problem: Wound Goal: Optimal Wound Healing Outcome: Ongoing, Progressing Intervention: Promote Wound Healing Note: See recs, cont wound vac Patient evaluated by [facility] nurse, individualized recommendations placed and care [...] 05/08/2025 10:19 AM Wound Image Wound Assessment [place];Red (moist) Margins Well-defined edges [place]-Wound Assessment Intact [...] the video go to this web address: https://bit.ly/9J46OO5 Or, scan this QR code with your smart phone ?? [facility] * Thi Chavarria RN - 05/08/2025 10:55 AM EDT Images from the original note were not included. Type 2 diabetes: 7 Ways to Prevent Parts Specialist Complications - Video Watch this video to [...] the video go to this web address: https://bit.ly/5I5yU4x Or, scan this QR code with your [...] to gently smooth the nail. Have a superintendent maintenance trim your nails if you can't see [...] remove corns, calluses, or warts by yourself. Ponu-[id number] products can burn or damage your skin. [...] your primary care doctor or by a superintendent maintenance. This is a doctor who specializes in foot care. Some diabetes centers have regular foot clinics. Last Reviewed Date: 2024 00:00:00 ?? [id number] [employer]. All rights reserved. This information is not [...] the video go to this web address: https://bit.RecycleMatch/[email or web address] Or, scan this QR code with your smart phone ?? [facility] * Consults - Beatriz Hu DO - 05/08/2025 8:38 AM EDTAssociated Order(s): Inpatient consult to Urology Inpatient consult to Urology Consult performed by: Beatriz Hu DO Consult ordered by: Diane Guzman MD [facility] Urology Consult Note 05/08/25 Service Requesting Consultation: Hospital Medicine CC: urinary retention HPI: Gonzalo Smalls is a 49 y.o. male with a past urologic history of urinary retention, recurrent UTIs,BPH, morbid obesity who presented to [facility] ED with diabetic foot ulcer. [...] states. After this he presented to an [facility] urologist Dr. Painting who stated to patient [...] (NEURONTIN) 600 mg, 3 times daily HYDROcodone-acetaminophen ([place]) 10-325 MG tablet 1 tablet, Every 6 hours PRN Insulin Pen Needle (Pen [place]) 31G X 5 MM [facility] USE TO INJECT INSULIN 3 TIMES PER [...] obesity and uncontrolled diabetes who presented to [facility] ED with diabetic foot ulcer. [...] states. After this he presented to an [facility] urologist Dr. Painting who stated to patient [...] established care with a Dr. Mendenhall an [facility] urologist as this is closer to home [...] established care with a Dr. Mendenhall an [facility] urologist as this is closer to home [...] has been following with urology outpatient [facility]. They have postulated this to be related to his diabetes and have had several voiding trials which have failed. Also has un dergone proctoscopy (?) which was normal. 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 and he [...] Mobility Bed Mobility Exam: Scooting/Bridging Level of [place]: Stand-by assist Physical/Nonphysical Assist: Verbal Cues Bed Mobility Exam: Supine to Sit Level of [place]: Contact guard Physical/Nonphysical Assist: Set-up required, Verbal Cues, Minimal cues Bed Mobility Exam: Sit to Supine Level of [place]: Minimum assist (75% patient's effort) Physical/Nonphysical Assist: Set-up required, Verbal Cues, Minimal cues Transfers Transfer Exam: Sit to stand Level of [place]: (Pt attempted with use of bariatric RW; [...] return to supine. Therapeutic Exercise Access Code: [email or web address] HEP printed and pt received copy with [...] provided based on observable deficits.* Level of [place] Interventions Grooming Patient demo's adequate BUE strength/ROM [...] tasks for toileting routine including transition to [facility] with CGA in prep for BSC transfer. [...] maintain WB status. FUNCTIONAL MOBILITY Level of [place] Physical/Non-physical Assist Adaptive Equipment Utilized Scooting/ Bridging [...] Appearance Posture: Within Functional Limits Level of [place] Balance Support Static Sit Standby assist Feet supported Dynamic Sit Standby assisst Feet supported THERAPEUTIC EXERCISE INTERVENTIONS (10 minutes) Treatment Details The patient was educated re: implementation of BUE HEP in order to target muscle groups necessary for functional mobility and ADL independence. HEP printed and each exercise reviewed, pt verbalized understanding. NullPointer Access Details (if appropriate) Access Code: [email or web address] URL: [email or web address] Date: 05/07/25 Exercises Included - Seated Elbow [...] has been following with urology outpatient [facility]. They have postulated this to be related to his diabetes and have had several voiding trials which have failed. Also has un dergone proctoscopy (?) which was normal. 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 For after hours please [...] Progressing * Care Plan - Jennifer Saldana 05/06/2025 2:17 PM EDT Problem: Skin Injury [...] has been following with urology outpatient at [facility]. They have postulated this to be related to his diabetes and have had several voiding trials which have failed. Also has un dergone proctoscopy (?) which was normal. 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 For after hours please [...] is in abx, has his CHG and [place] wipes done in this shift Problem: Mobility [...] vascular surgery; wound vac applied 05/03 by [facility] Wound Assessment: Wound 05/01/25 Surgical Toe (Comment which one) Anterior;Right (Active) Date First Assessed/Time First Assessed: 05/01/25 0805 Present on Original Admission: No Hand Hygiene Completed: Yes Primary Wound Type: Surgical Location: Toe (Comment which one) Wound Location Orientation: Anterior;Right Assessments 05/05/2025 11:44 AM Wound Image Wound Assessment [place];Red (moist , full thickness) Margins Well-defined edges [...] no orders noted for wound vac, maessaged [facility] team for guidance. Orders placedfor [...] Optimal Wound Healing 05/05/2025 1422 by Jeevan Shah, RN Outcome: Ongoing, Progressing 05/05/2025 1422 by Jeevan Shah RN Outcome: Ongoing, Progressing Intervention: Promote Wound Healing Note: See recs, wound vac in use Patient evaluated by [facility] nurse, individualized recommendations placed and care plan interventions updated; see wound care note for details regarding recommendations to support optimal wound healing. * Progress Notes - Mayra Apodaca RN - 05/05/2025 12:30 PM EDT Case Management Adult Progress Note Gonzalo Smalls 49 y.o. male CSN: [id number] Admission: 04/27/2025 9:29 PM Primary Problem: Diabetic [...] No MDRO isolated 04/27/25 Blood culture [facility] Culture Data: - 04/25/25: Blood [...] discharge to [facility]. Recommend close follow-up with vascular surgery and [...] PA-C Division of Infectious Diseases Available by LogicLibrary History, assessment, and plan discussed with ID [...] Units Subcutaneous BID PRN Sarah Martinez P, RISK MANAGEMENT PROFESSIONAL insulin NPH (Isophane) (HumuLIN N,NovoLIN N) injection [...] (H) 05/03/2025 I reviewed bg tracing in [facility] glucose timeline 05/05/25 ASSESSMENT Hospital Course: [...] mellitus - type 2 -Home medications: CGM: OB10 G7 Insulin regimen: U500 insulin: prescription for [...] as patient nears discharge for final recommendations Martina Foote PA-C Please contact [address] [place] Adult Inpatient Diabetes team via secure chat or page us at [phone] during -7p, Thursday-Thursday. For after hours please [...] sodium chloride * Progress Notes - Diane Gzuman MD - 05/05/2025 8:18 AM EDT Subjective [...] Progressing Intervention: Optimize Skin Protection Flowsheets Taken 05/05/2025117 Activity Management: activity adjusted per tolerance Pressure [...] precautions. Bed Mobility Exam: Rolling/Turning Level of [place]: Contact guard Physical/Nonphysical Assist: Verbal Cues, Moderate cues Bed Mobility Exam: Scooting/Bridging Level of [place]: Stand-by assist Bed Mobility Exam: Supine to Sit Level of [place]: Contact guard Physical/Nonphysical Assist: Verbal Cues Bed Mobility Exam: Sit to Supine Level of [place]: Stand-by assist Patient performed rolling bilaterally for placement of lift pad. Transfers Transfer Exam: Sit to stand Level of [place]: (Patient unable to perform without engaging right [...] promote tempo and full ROM. Standardized Assessments [facility] 6-Clicks Mobility Assessment Difficulty patient has turning [...] climbing 3-5 steps with a railing?: Unable [facility] 6-Clicks Mobility Assessment Total : 12 Assessment [...] help from Spouse Level of Mobility Mobility [place] History of Falls ADL Performance Needs assistance [...] to therapy this date. Visitors Present No Sales Support Associate (if applicable) OBJECTIVE PAIN Pain Score (0-10): [...] sba for bed mobility tasks. Level of [place] Adaptive Equipment Utilized Comments Feeding Grooming Setup washing face/hands Bathing Upper Body Dressing Lower Body Dressing Shoe Level of Assistance: Dependent Toileting IADLs Health Management Community Re-Entry BALANCE Postural Appearance INTERVENTIONS Level of [place] Balance Support Comments Static Sit Standby assist [...] weight shifting to promote safety. Level of [place] Physical/Non-physical Assist Adaptive Equipment Utilized Rolling/ Turning [...] No MDRO isolated 04/27/25 Blood culture [facility] Culture Data: - 04/25/25: Blood [...] PA-C Division of Infectious Diseases Available by [employer] Chat History, assessment, and plan discussed with [...] tablet 40 mg 40 mg Oral Nightly OMarjorie weaver MD 40 mg at 05/03/252038 bisoprolol (Zebeta) [...] mL IVPB (vial adapter required) 2 g [id number] Diane Guzman MD 36.7 mL/hr at 05/03/25 2354 2 g at 05/03/25 2354 DAPTOmycin (Cubicin) 1,500 mg in sodium chloride 0.9 % 100 mL IVPB 10 mg/kg (Adjusted) Intravenous q24h Marjorie Myers MD 280 mL/hr at 05/03/25 1811 1,500 mg at 05/03/25 1811 glucose (Glutose) 40 % oral gel 15-30 [...] mg 1 mg Intramuscular q15 min PRN Marojrie Myers MD dilTIAZem CD (Cardizem CD) 24 [...] Units Subcutaneous BID PRN Sarah Martinez P, RISK MANAGEMENT PROFESSIONAL insulin NPH (Isophane) (HumuLIN N,NovoLIN N) injection 50 Units 50 Units Subcutaneous BID Sarah Martinez RISK MANAGEMENT PROFESSIONAL 50 Units at 05/03/252043 ipratropium-albuterol (Duo-Neb) 0.5-2.5 [...] 20 mg Oral Daily with dinner Diane Guzamn MD 20 mg at 05/03/25 1810 sodium [...] (H) 05/02/2025 I reviewed bg tracing in [facility] glucose timeline 05/04/25 ASSESSMENT Hospital Course: [...] mellitus - type 2 -Home medications: CGM: OB10 G7 Insulin regimen: U500 insulin: prescription for [...] continue to assess need -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 For after hours please [...] Care Review Outcome: Ongoing, Progressing Flowsheets Taken 05/03/20251841 by [...] Positioning: HOB elevated Taken 05/02/2025 1820 by Radha, Santy D, RN Skin Protection: incontinence pads utilized Taken 05/02/2025 1259 by Jeevan Shah RN Pressure Reduction Devices: specialty bed utilized Taken 04/30/2025 145 by Radha Saavedra RN Pressure Reduction Techniques: [...] RN Progress: improving Taken 05/02/20251819 by Santy Garcia, RN Plan of Care [...] Hospital-Acquired Illness or Injury 05/03/20251841 by Kylee Gnozalez RN Outcome: Ongoing, Progressing 05/03/20251841 by Kylee [...] Comfort Flowsheets (Taken 05/03/2025 0459 by Aime Gill RN) Pain Management Interventions: medication (see MAR) [...] precautions maintained Taken 05/02/2025 1820 by Santy Garcia RN Fever Reduction/Comfort Measures: [...] Level Within Target Range 05/03/20251841 by Kylee Gonzalez, LOLA Outcome: Ongoing, Progressing 05/03/20251841 by Kylee Gonzalez [...] Optimal Pain Control and Function 05/03/20251841 by Lisa, Kylee G, RN Outcome: Ongoing, Progressing 05/03/2025 1842 by Kylee Gonzalez RN Outcome: Ongoing, Progressing * Progress Notes - Leidy Velasco MD - 05/03/2025 12:25 PM EDT Images from the original note were not included. [facility] Department of Surgery Division of Vascular Surgery 05/03/25 Gonzalo Blackman Drew Subjective Subjective: HPI Gonzalo Smalls is an [...] an 49 y.o. male who presented to [facility] 04/27/2025 with diabetic foot ulcer now s/pamputation [...] Note Gonzalo Smalls 49 y.o. male CSN: [id number] Admission: 04/27/2025 9:29 PM Primary Problem: Diabetic [...] No MDRO isolated 04/27/25 Blood culture [facility] Culture Data: - 04/25/25: Blood [...] PA-C Division of Infectious Diseases Available by [employer] History, assessment, and plan discussed with ID [...] Units Subcutaneous TID with meals Sarah Martinez, RISK MANAGEMENT PROFESSIONAL 30 Units at 05/03/25919 Insulin Lispro (Admelog, HumaLOG) 100 UNIT/ML injection 6 Units 6 Units Subcutaneous BID PRN Sarah Martinez P, RISK MANAGEMENT PROFESSIONAL insulin NPH (Isophane) (HumuLIN N,NovoLIN N) injection 42 Units 42 Units Subcutaneous BID Kristy Martinezosito Voss APRN 42 Units at 05/03/25 0919 ipratropium-albuterol (Duo-Neb) 0.5-2.5 mg/3 mL nebulizer solution 3 mL 3 mL Nebulization q4h PRN Marjorie Myers MD Kyree powder 1 packet 1 packet Oral BID Diane Guzmna MD 1 packet at 05/03/25 0934 LORazepam (Ativan) tablet 1 mg 1 mg Oral Daily PRN OMarjorie weaver MD 1 mg at 04/30/25 2031 magnesium [...] q12h Marjorie Myers MD 10 mL at 05/02/251811 And sodium chloride 0.9 % flush 10 [...] Red man syndrome * Progress Notes - iDane Guzman MD - 05/03/2025 8:40 AM EDT [...] 5+ Days * Progress Notes - Sarah Martinez APRN - 05/03/2025 7:55 AM EDT Endocrine - [...] continue to assess need -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 For after hours please [...] the original note were not included. [facility] Department of Surgery Division of [...] (Taken 05/02/2025 1820 by Santy Garcia, RN) Progress: improving Plan [...] incontinence pads utilized Taken 05/02/2025 1259 by Pablo, Jeevan L, RN Head of Bed (HOB) Positioning: HOB [...] Review Outcome: Ongoing, Progressing Flowsheets (Taken 05/02/2025 182 by Santy Garcia, RN) Progress: improving Plan [...] degrees Note: See recs Patient evaluated by [facility] nurse, individualized recommendations placed and care [...] new issues or concerns Jeevan Shah RN OCN 05/02/2025 12:54 PM * Query Clarification Note [...] No MDRO isolated 04/27/25 Blood culture [facility] Culture Data: - 04/25/25: Blood [...] PA-C Division of Infectious Diseases Available by [employer] History, assessment, and plan discussed with ID [...] BID Marjorie Myers MD 5 mg at 05/02/25907 bumetanide (Bumex) tablet 4 mg 4 mg Oral TID Marjorie Myers MD 4 mg at 05/02/25908 cariprazine (Vraylar) capsule 3 mg 3 mg Oral Daily Marjorie Myers MD 3 mg at 05/02/25 09 DAPTOmycin (Cubicin) 1,500 mg in sodium chloride 0.9 % 100 mL IVPB 10 mg/kg (Adjusted) Intravenous q24h Marjorie Myers MD 280 mL/hr at 05/01/25 1741 1,500 mg at 05/01/25 174 glucose (Glutose) 40 % oral gel [...] Units 42 Units Subcutaneous BID Sarah Martinez, RISK MANAGEMENT PROFESSIONAL ipratropium-albuterol (Duo-Neb) 0.5-2.5 mg/3 mL nebulizer solution [...] Marjorie Myers MD 100 mg at 05/02/25 09 tamsulosin (Flomax) 24 hr capsule 0.4 [...] Note Gonzalo Smalls 49 y.o. male CSN: [id number] Room/Bed 117/117A Nutrition evaluation type: assessment Reason [...] at bedside. Good appetite both now and [employer]. No known unintentional weight changes, UBW 570#. [...] Weight Evaluation: Extreme Obesity (BMI > 40) [place] Body Weight (kg): 80.9 Percent [place] Body Weight: 311 Adjusted Body Weight (kg): [...] Regular Adult Carbohydrate Restriction: Consistent CHO 1 (0468-8532 Steven, 65 g/meal) Adult Sodium Restriction: 2,000 [...] the original note were not included. [facility] Department of Surgery Division of [...] by Drain (mL) 04/30/25 07 - 04/30/25185804/30/25 1900 - 05/01/25 0659 05/01/25 07 - 05/01/25 1859 05/01/25 1900 - 05/02/25 0659 05/02/25 07 - 05/02/25 [...] 7 days Lab Units 05/02/25 0310 05/01/2521304/30/25318 CREATININE mg/dL 0.73 0.71 0.77 Medications [...] snacking overnight while watching the games including [employer], goldfish, ritz crackers and other snacks -no [...] treatment -plan and management discussed with patient, dye weigher, bedside RN NOTE: -Patient utilizes U500 insulin pen at home. With the U500 pen, a conversion is not needed. Typically patient's required a 70% reduction in home U500 dosing. 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 For after hours please [...] Progressing Flowsheets (Taken 05/01/2025 1130 by Rocío Crandall, RN) Progress: improving Plan of Care Reviewed [...] consulted and rec amputation vs transfer to [facility] for podiatry input about foot salvage : cannot transfer to [facility] given weight limit, pod team cannot come [...] daily #Morbid Obesity - failed gastric sleeve, Matthewempic, BMI 81.99, complicates all aspects of care #QUINN - 2 L nasal cannula at night Medically Ready for Discharge:Anticipated in 5+ Days * Progress Notes - Mayra Apodaca RN - 05/01/2025 12:15 PM EDT Case Management Adult Progress Note Gonzalo Smalls 49 y.o. male CSN: [id number] Admission: 04/27/2025 9:29 PM Primary Problem: Diabetic [...] the original note were not included. [facility] Department of Surgery Division of [...] nursing staff. I have notified senior resident/attending mass communications professor with any issues or concerns. Leidy Velasco [...] bony pathology, duration TBD - [facility] tomorrow to check on urine [...] PA-C Division of Infectious Diseases Available by Innov[employer] Chat History, assessment, and plan discussed with [...] q4h PRN Sy De La Fuente APRN, DENISE [Transfer Hold] atorvastatin (Lipitor) tablet 40 mg [...] q24h Marjorie Myers MD Stopped at 04/30/25 1751 [Transfer Hold] glucose (Glutose) 40 % oral [...] BID Marjorie Myers MD 1 Application at 04/30/25 2020 ondansetron (Zofran) injection 4 mg 4 mg [...] 0954 thrombin (recombinant) (Recothrom) topical solution PRN aMry Vicente MD 5,000 Units at 05/01/25 0825 [...] mcg/mL infusion Intravenous PRN Muzic, Og A, SERVICES REP 8 mcg at 05/01/25 0841 fentaNYL (Sublimaze) injection Intravenous PRN Muzic, Og A, SERVICES REP 25 mcg at 05/01/25 0826 lactated Ringer's infusion Intravenous Continuous PRN Muzic, Og A, SERVICES REP New Bag at 05/01/25 0728 midazolam (Versed) injection Intravenous PRN Og Shah CRNA 1 mg at 05/01/25 5546 [2] Allergies Allergen Reactions Vancomycin Other - [...] (H) 04/29/2025 I reviewed bg tracing in [facility] glucose timeline 05/01/25 ASSESSMENT Hospital Course: [...] continue to assess need -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 For after hours please [...] AM EDT Operative Note Date: 05/01/25 Location: [place] [facility] Name: Gonzalo Smalls, : 1975, Diagnoses: Pre-op Diagnosis Other chronic osteomyelitis of right foot (CMS/HCC) Post-op Diagnosis Other chronic osteomyelitis of right foot (CMS/HCC) Procedure(s): Right 5th toe ray amputation Attending Surgeon(s): * Mary Vicente - Primary Pressure Supervisor(s): * Paula Martinez MD - Resident - [...] the wound bed. This extended more than [facility] to the heel laterally. The underlying skin [...] consulted and rec amputation vs transfer to [facility] for podiatry input about foot salvage : cannot transfer to [facility] given weight limit, pod team cannot come [...] daily #Morbid Obesity - failed gastric sleeve, Matthewempic, BMI 81.99, complicates all aspects of care [...] kg/m?? Labs and medications reviewed. 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 [facility] Department of Surgery Division of [...] He is unable to be transferred to [facility] for Podiatry due to weight Edited by: [...] Airway None Output by Drain (mL) 04/28/25 07 - 04/28/25185804/28/25 190 - 04/29/25 0659 04/29/25 0700 - 04/29/25 [...] Results from last 7 days Lab Units 04/30/2531804/29/25 03004/27/25 2137 HEMOGLOBIN g/dL 9.6* 9.4* 10.4* HEMATOCRIT % 32.6* 32.0* 33.3* INR Results from last 7 days Lab Units 04/28/25 0813 INR 1.4* Cr Results from last 7 days Lab Units 04/30/2531804/29/25 03004/27/25 2137 CREATININE mg/dL 0.77 0.94 0.84 Medications reviewed. Vital signs reviewed. Labs reviewed. Assessment/Plan Assessment and Plan: Gonzalo Smalls is a 49 y.o. male with PMHx notable for class III obesity, CHF (EF 55% in 2021), paroxsymal atrial fibrillation (on Xarelto), HTN, HLD, T2DM, COPD, QUINN on 2LNC at night, recurrent UTIswho presented to [facility] with nonhealing right foot wound. Radiographs [...] kg/m?? Labs and medications reviewed. 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 For after hours please [...] Intervention: Prevent or Manage Infection Flowsheets (Taken 04/28/2025 09) Infection Management: aseptic technique maintained Isolation Precautions: precautions maintained Problem: Mobility Impairment Goal: Optimal Mobility Outcome: Ongoing, Progressing Intervention: Optimize Mobility Flowsheets (Taken 04/28/2025913) Activity Management: activity adjusted per tolerance education provided * Progress Notes - Mayra Apodaca RN - 04/28/2025 1:41 PM EDT Case Management Adult Initial Progress Note Gonzalo Yehuda Smalls 49 y.o. male CSN: [id number] Admission: 04/27/2025 9:29 PM Primary Problem: Diabetic foot ulcer Yeast Washer reviewed chart and spoke with patient at bedside to complete this Initial Case Management Assessment. PCP: Malcolm Hayward APRN Emergency Contact: Extended Emergency Contact Information Primary Emergency Contact: Maggie Smalls Mobile Relation: Spouse Preferred language: Kazakh Sales Support Associate needed? No Insurance: Primary Visit Coverage Payer Plan Sponsor Code Group Number Group Name MARIA DGEE THIAGO SOTOMAYOR/[facility] [id number] [place] Primary Visit Coverage Subscriber Subscriber ID Subscriber Name Subscriber N Subscriber Address [id number] GONZALO SMALLS [id number] [id number] Secondary Visit Coverage Payer Plan Sponsor Code Group Number Group Name MEDICARE MEDICARE A & B Secondary Visit Coverage Subscriber Subscriber ID Subscriber Name Subscriber SSN Subscriber Address [id number] GONZALO SMALLS [id number] [address], [place] [address] Patient information: Primary Caregiver: Self Support System: Immediate family Daily Living Activities: Functional Status: Minimum assistance Living Arrangements: Spouse/Significant other, Children (daughter) Type of Residence: Private residence, Single Level ([address]) [address] [address] Smoker in the Home?: No Current DME: [...] line dressing changes Living Will/Advance Directive/Power of Waste Disposal Leakage Tester /Guardian: None Additional Comments: Patient admitted for worsening right diabetic foot ulcer. Vascular surgery consulted. ID consulted.Endocrine consulted. RNCM will continue to monitor for further discharge needs. Mayra Apodaca RN * Progress Notes - Marjorie Myers MD - 04/28/2025 1:24 PM EDT Seen and examined. ID vascular team has consulted Alyssanam to continue * Consults - Janis Wheeler MD - 04/28/2025 12:26 PM EDTAssociated Order(s): Inpatient consult to Vascular Surgery Images from the original note were not included. [facility] Department of Surgery Division of [...] night, recurrent UTIs who presented to the [facility] on 04/27/2025 with right foot wound. He [...] file Social Connections: Unknown (04/24/2023) Received from [facility] Family and Community Support Help with Day-to-Day [...] History Administered Date(s) Administered Moderna COVID-19 Vaccine (Tubular Splitting Machine Tender) 12+ years 01/25/2021, 02/22/2021 Pneumococcal Conjugate [...] a day. 09/05/21 Yes Provider, Historical HYDROcodone-acetaminophen ([place]) 10-325 MG tablet Take 1 tablet by [...] Yes Provider, Historical Insulin Pen Needle (Pen [place]) 31G X 5 MM misc USE TO [...] 6 hours as needed for pain. Under [place] law, monthly prescriptions (30 days) can be [...] night, recurrent UTIswho presented to [facility] with nonhealing right foot wound. Radiographs [...] mg Oral q6h PRN Sy De La Fuenet APRN, DNP albuterol 108 (90 Base) MCG/ACT inhaler 2 puff 2 puff Inhalation q4h PRN Sy De La Fuente APRN, DNP atorvastatin (Lipitor) tablet 40 mg 40 mg Oral Nightly Buddhist, Dirk A, RISK MANAGEMENT PROFESSIONAL, DNP bisoprolol (Zebeta) tablet 5 mg 5 [...] La Fuente APRN, DNP 150 mgat 04/28/25 0859 Current Outpatient Medications Medication Sig Dispense Refill [...] by mouth 3 times a day. HYDROcodone-acetaminophen ([place]) 10-325 MG tablet Take 1 tablet by [...] by mouth daily. Insulin Pen Needle (Pen [place]) 31G X 5 MM [facility] USE TO INJECT INSULIN 3 TIMES PER [...] [X] Family [ ] Friend [ ] Sales Support Associate [X] Medical records HISTORY OF PRESENT ILLNESS: [...] and [facility] [...] in the ED 2-3 days ago at [facility]. I contacted OSH who report [...] a day. 09/05/21 Yes Provider, Historical HYDROcodone-acetaminophen ([place]) 10-325 MG tablet Take 1 tablet by [...] Yes Provider, Historical Insulin Pen Needle (Pen [place]) 31G X 5 MM misc USE TO [...] 6 hours as needed for pain. Under [place] law, monthly prescriptions (30 days) can be [...] (!) 274 kg (604 lb 8 oz) 04/27/251918 130/74 37.1 ??C (98.8 ??F) Oral 107 [...] Will follow-up blood and urine cultures from [facility] for further ID/susceptibilities, obtained 04/25 - Please obtain adult ID screening labs: Hep A IgG, Hep B sAb, Hep B sAg, and Hep B total core Ab - Plan of care and recommendations discussed with patient's primary provider Thank you for allowing us to participate in this patient's care. ID will follow. Janelle Phan PA-C Division of Infectious Diseases Available by [employer] History, assessment, and plan discussed with ID [...] La Fuente APRN, DNP 150 mgat 04/28/25 0890 Current Outpatient Medications Medication Sig Dispense Refill [...] by mouth 3 times a day. HYDROcodone-acetaminophen ([place]) 10-325 MG tablet Take 1 tablet by [...] by mouth daily. Insulin Pen Needle (Pen [place]) 31G X 5 MM misc USE TO [...] back pain 04/22/2019 Hypertension 02/18/2019 Morbid obesity ([facility]) 12/24/2016 Procedures Past Medical History Patient has a past medical history of Acute kidney injury (05/19/2024), Alcohol abuse, in remission, Anxiety disorder, unspecified, Arthritis, Atrial fibrillation ([facility]), CAP (community acquired pneumonia) (05/19/2024), Cellulitis [...] in Care Family/Caregiver Present: Yes Family/Caregiver: Spouse Sales Support Associate: Not Applicable Presentation Oxygen Therapy: None (Room [...] Needs assist Patient/Family Goals Return home at [facility]. Objective Pain Pt reports 7/10 pain in [...] pain. Bed Mobility Exam: Rolling/Turning Level of [place]: Maximum assist (25% patient effort) Physical/Nonphysical Assist: Verbal Cues, Moderate cues Assistive Device: Bed rails, Other (INVESTIGATIVE AGENT) Bed Mobility Exam: Scooting/Bridging Level of [place]: Maximum assist (25% patient's effort) (up in bed; Lester forward at EOB) Physical/Nonphysical Assist: Verbal Cues, Moderate cues Assistive Device: Bed rails Bed Mobility Exam: Supine to Sit Level of [place]: Maximum assist (25% patient's effort) Physical/Nonphysical Assist: Verbal Cues, Moderate cues, Set-up required, Additional assist utilized for safety Assistive Device: Other (INVESTIGATIVE AGENT) Bed Mobility Exam: Sit to Supine Level of [place]: Maximum assist (25% patient's effort) Physical/Nonphysical Assist: [...] space Standardized Assessments Standardized Assessments Standardized Assessments: [facility] 6-Clicks Mobility Assessment [facility] 6-Clicks Mobility Assessment Difficulty patient has turning [...] climbing 3-5 steps with a railing?: Unable [facility] 6-Clicks Mobility Assessment Total : 8 No [...] remission, Anxiety disorder, unspecified, Arthritis, Atrial fibrillation ([facility]), CAP (community acquired pneumonia) (05/19/2024), Cellulitis [...] CARE Subjective Pt reports Visitors Present Spouse Sales Support Associate (if applicable) PRESENTATION Oxygen Room Air Telemetry [...] help from Spouse Level of Mobility Mobility [place] History of Falls ADL Performance ADL Performance: [...] Mobility Bed Mobility Exam: Rolling/Turning Level of [place]: Maximum assist (25% patient effort) Physical/Nonphysical Assist: Verbal Cues, Moderate cues Assistive Device: Bed rails, Other (INVESTIGATIVE AGENT) Bed Mobility Exam: Scooting/Bridging Level of [place]: Maximum assist (25% patient's effort) (up in bed; Lester forward at EOB) Physical/Nonphysical Assist: Verbal Cues, Moderate cues Assistive Device: Bed rails Bed Mobility Exam: Supine to Sit Level of [place]: Maximum assist (25% patient's effort) Physical/Nonphysical Assist: Verbal Cues, Moderate cues, Set-up required, Additional assist utilized for safety Assistive Device: Other (INVESTIGATIVE AGENT) Bed Mobility Exam: Sit to Supine Level of [place]: Maximum assist (25% patient's effort) Physical/Nonphysical Assist: [...] POC an d discharge recommendations. STANDARDIZED ASSESSMENTS [facility] 6-Click Daily Activities Help from Other: Don/Doff Regular Lower Body Clothings: A lot Help From Other: Bathing: A lot Help From Other: Toileting: A lot Help From Other: Don/Doff Upper Body Clothings: None Help From Other: Grooming: None Help From Other: Eating Meals: None [facility] 6 Click - Daily Activities Score: [...] about 10 years ago Provider managing diabetes: [facility] - last office visit 01/13/2024 At [...] Lunch: leftovers/baked oatmeal Dinner: take out/cooking - [place] Theorem, cracker barrel Snacks: peanut butter crackers, cheese [...] continue to assess need -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 For after hours please [...] by mouth 3 times a day. HYDROcodone-acetaminophen ([place]) 10-325 MG tablet Take 1 tablet by [...] by mouth daily. Insulin Pen Needle (Pen [place]) 31G X 5 MM misc USE TO [...] H&P - Sy De La Fuente APRN, DENISE - 04/28/2025 6:09 AM EDTAssociated Order(s): Consult to [facility] Images from the original note were not included. Consult to [facility] Consult performed by: Sy De La Fuente, ADALGISA, DENISE Consult ordered by: Man Garcia DO Reason [...] 6 hours as needed for pain. Under [place] law, monthly prescriptions (30 days) can be [...] times a day. 09/05/21 Provider, Historical HYDROcodone-acetaminophen ([place]) 10-325 MG tablet Take 1 tablet by mouth every 6 hours as needed. Provider, Historical insulin NPH-insulin regular (NovoLIN 70/30 FlexPen) (70-30) 100 UNIT/ML injection pen Inject 90 Units under the skin 3 times a day before meals. FURTHER REFILLS WILL BE PROVIDED UPON ATTENDANCE OF NEXT OFFICE VISIT 03/29/25 02/22/25 Divine Archer APRN Insulin Pen Needle ([place]) 31G X 5 MM [facility] USE TO INJECT INSULIN 3 TIMES PER [...] Value Units Date/Time Blood Culture (Aerobic/Anaerobet Set) [[id number]] Collected: 04/27/252215 Order Status: Completed Specimen: Blood, Venous Updated: 04/28/25111 Culture Culture in lab Blood Culture (Aerobic/Anaerobet Set) [[id number]] Collected: 04/27/256 Order Status: Completed Specimen: Blood, Venous Updated: [...] warmth, chills, vomiting. History provided by: Patient electrocardiogram technician used: No I agree with the above [...] peripheral edema. Patient is also currently receiving ertapenemevery day for the next 5 days. He has been on it for 2 days IV infusions. Patient tells me he is receiving this due to a ???kidney infection?? where he was admitted at [facility]. Patient denies any shortness of breath, fevers, chest pain, abdominal pain. Patient has a catheter in which was placed due to the recurrent UTIs he was getting from a neurogenic bladder that he tells meis from his diabetes as he has overflow [...] baseline. Comments: Awake Psychiatric: Behavior: Behavior normal. [place] Coma Scale Score: 15 ED Course & [...] records from his previous hospital visit at [facility] which showed he was being [...] Ordered Status Ordering Provider 04/28/25541 Consult to [facility] Once Specialty: Internal Medicine Provider: (Not yet assigned) Acknowledged SUMAN NATARAJAN 04/28/25541 ED to floor bed request Once Acknowledged SUMAN NATARAJAN 04/28/25541 Once Specialty: Orthopaedic Surgery Provider: (Not yet assigned) Canceled SUMAN NATARAJAN 04/27/252223 CT Foot Right w IV Contrast Once Final result SALBADOR, JESSA 04/27/252223 Sed rate, automated STAT Final result SALBADOR, JESSA 04/27/252154 Beta-Hydroxybutyric Acid STAT Final result SUMAN NATARAJAN 04/27/252154 Blood gas, venous STAT Final result SUMAN NATARAJAN 04/27/252154 Blood Culture (Aerobic/Anaerobet Set) STAT Preliminary result SUMAN NATARAJAN 04/27/252154 Blood Culture (Aerobic/Anaerobet Set) STAT Preliminary result SUMAN NATARAJAN 04/27/252154 Magnesium STAT Final result SMUAN NATARAJAN 04/27/252154 Type and screen Start now [...] of Pseudomonas coverage. I spoke with the auto rental clerk to tryto get records from [facility] to see why he was [...] Anxiety disorder, unspecified Anxiety Arthritis Atrial fibrillation ([facility]) CAP (community acquired pneumonia) 05/19/2024 Cellulitis [...] Red man syndrome Jessa Law MD 05/07/25 4399 * ED Triage Notes - Francisco Javier Hansen RN - 04/27/2025 7:16 PM EDT Pt endorsing diabetic wound to his R foot x2-3 months. documented in this encounter Plan of Treatment Upcoming Encounters Date Type Department Care Team (Late st Contact Info) Description 06/22/2025 1:40 PM EST Office Visit [facility] [address] Floor [address] [place] [address] Mary Vicente MD [address] [facility] [address] [place] [address] 06/23/2025 8:00 AM EST Office Visit [facility] [address] [place] [address] Sheila Marcano PA [address] [place] [address] Scheduled Orders Name Type Priority [...] 04 AM EDT MAGNESIUM, PLASMA Routine 04/29/2025 3: 04 AM EDT HEMOGLOBIN A1C Routine 04/29/2025 3:04 [...] - 99 mg/dL 05/18/2025 8:11 AM EST [facility] Comment:Accuracy of a glucos e [...] for testing. Comment 05/18/2025 8:11 AM EST [facility] Netbackup Engineer ID Char Hinojosa 05/18/2025 8:11 AM EST [facility] Device ID [id number] 05/18/2025 8:11 AM EST [facility] Specimen Type POC Capillary 05/18/2025 8:11 AM EST [facility] Blood Capillary blood specimen / Unknown 05/18/2025 8:09 AM EST 05/18/2025 8:11 AM EST Umar Rodrick Goyal DO LAB POINT OF CARE TE ST DOCKED DEVICE UNSOLICITED RESULTS Final Result Performing Organization Address City/State/[facility] Co de Phone Number [facility] [address] [place] [address] * (ABNORMAL) POCT glucose meter (05/17/2025 7:54 PM EST) POCT Glucose 216(H) 74 - 99 mg/dL 05/17/2025 7:55 PM EST [facility] Comment:Accuracy of a glucos e result [...] 05/17/2025 7:55 PM EST [facility] Net[facility] Engineer ID Ron Lal 7:55 PM EST [facility]ALTH[facility]ARE [facility] Device ID [id number] 05/17/2025 7:55 PM EST [facility] Specimen Type POC Capillary 05/17/2025 7:55 PM EST [facility] Blood Capillary blood specimen / Unknown 05/17/2025 7:54 PM EST 05/17/2025 7:55 PM EST Heidi Shaulisar R Jay Jay DO LAB POINT OF CARE TE ST DOCKED DEVICE UNSOLICITED RESULTS Final Result Performing Organization Address City/[facility] Co de Phone Number [facility] [address] [place] [address] * (ABNORMAL) POCT glucose meter (05/17/2025 5:13 PM EST) POCT Glucose 186(H) 74 - 99 mg/dL 05/17/2025 5:14 PM EST [facility] Comment:Accuracy of a glucos e result [...] for testing. Comment 05/17/2025 5:14 PM EST [facility] Netbackup Engineer ID Char Hinojosa 05/17/2025 5:14 PM EST [facility]ARE [facility] Device ID [id number] 05/17/2025 5:14 PM EST [facility] Specimen Type POC Capillary 05/17/2025 5:14 PM EST [facility] Blood Capillary blood specimen / Unknown 05/17/2025 5:13 PM EST 05/17/2025 5:14 PM EST Heidi Shaulisar R Jay Jay DO LAB POINT OF CARE TE ST DOCKED DEVICE UNSOLICITED RESULTS Final Result Performing Organization Address City/[facility]/ZIP Co de Phone Number [facility] [address] [place] [address] * (ABNORMAL) POCT glucose meter (05/17/2025 1:01 PM EST) Pathologist [facility] POCT Glucose 191(H) 74 - 99 mg/dL 05/31/2025 3:12 PM EST [facility] Comment:Accuracy of a glucos e [...] for testing. Comment 05/31/2025 3:12 PM EST [facility] Net[employer] Engineer ID Char Hinojosa 05/31/2025 3:12 PM EST [facility] Device ID [id number] 05/31/2025 3:12 PM EST [facility] Specimen Type POC Capillary 05/31/2025 3:12 PM EST [facility] Blood Capillary blood specimen / Unknown 05/17/2025 1:01 PM EST 05/31/2025 3:12 PM EST [facility] Rodrick Goyal DO LAB POINT OF CARE TE ST DOCKED DEVICE UNSOLICITED RESULTS Final Result Performing Organization Address City/State/[facility] Co de Phone Number [facility] [address] [place], [place] [id number] * ECHO, ADULT TRANSTHORACIC COMPLETE W/ CONTRAST (05/17/2025 9:51 AM EST) [facility] BSA 3.30 m2 HANK ISCV Height 182.9 [...] Ao Diam 37 mm HANK ISCV PA MI(ACCEL) 24.6 mmHg HANK ISCV LV mean PG [...] is no recent study available for direct mevq-de-vnqx comparison. Left Ventricle The left ventricle is [...] is no recent study available for direct oxch-yf-vzul comparison. [facility] Jay Jay DO CV ECHO PROCEDURES Final Result * (ABNORMAL) POCT glucose meter (05/17/2025 8:52 AM EST) POCT Glucose 225(H) 74 - 99 mg/dL 05/31/2025 3:12 PM EST [facility] Comment:Accuracy of a glucos e [...] for testing. Comment 05/31/2025 3:12 PM EST [facility] Engineer ID Char Hinojosa 05/31/2025 3:12 PM EST [facility] Device ID [id number] 05/31/2025 3:12 PM EST [facility] Specimen Type POC Capillary 05/31/2025 3:12 PM EST [facility] Blood Capillary blood specimen / Unknown 05/17/2025 8:52 AM EST 05/31/2025 3:12 PM EST [facility] R Jay Jay DO LAB POINT OF CARE TE ST DOCKED DEVICE UNSOLICITED RESULTS Final Result [facility] [address] [place] [address] * (ABNORMAL) POCT glucose meter (05/16/2025 9:28 PM EST) POCT Glucose 199(H) 74 - 99 mg/dL 05/31/2025 3:12 PM EST [facility] Comment:Accuracy of a glucos e result [...] 05/31/2025 3:12 PM EST [facility] Engineer ID Jamal Soriano 3:12 PM EST [facility] Device ID [id number] 05/31/2025 3:12 PM EST [facility] Specimen Type POC Capillary 05/31/2025 3:12 PM EST [facility] Blood Capillary blood specimen / Unknown 05/16/2025 9:28 PM EST 05/31/2025 3:12 PM EST Umar R Jay Jay DO LAB POINT OF CARE TE ST DOCKED DEVICE UNSOLICITED RESULTS Final Result Performing Organization Address City/State/[facility] de Phone Number [facility] [address] [place] [address] * (ABNORMAL) POCT glucose meter (05/16/2025 5:37 PM EST) [facility] Signature POCT Glucose 283(H) 74 - [...] 05/16/2025 5:39 PM EST [facility] Engineer ID Char Hinojosa 05/16/2025 5:39 PM EST [facility] Device ID [id number] 05/16/2025 5:39 PM EST [facility] Specimen Type POC Capillary 05/16/2025 5:39 PM EST [facility] Blood Capillary blood specimen / Unknown 05/16/2025 5:37 PM EST 05/16/2025 5:39 PM EST us Umar R Jay Jay DO LAB POINT OF CARE TE ST DOCKED DEVICE UNSOLICITED RESULTS Final Result [facility] [address] [place] [address] * ECG Adult (05/16/2025 3:33 PM EST) EKG DIAGNOSIS CLASS Abnormal MUSE ECG Ventricular Rate 58 BPM MUSE ECG Atrial Rate 58 BPM MUSE ECG MI Interval 184 ms MUSE ECG QRSD Interval 158 ms MUSE ECG QT Interval 496 ms MUSE ECG QTC Interval 486 ms MUSE ECG P [place] 30 degrees MUSE ECG R [place] -35 degrees MUSE ECG T Wave [place] -5 degrees MUSE ECG Diagnosis Sinus bradycardia [...] ECG ORDERABLES Final Result Performing Organization Address City/[facility] Co [...] 05/16/2025 12:07 PM EST [facility] Engineer ID Char Hinojosa 05/16/2025 12:07 PM EST [facility] Device ID [id number] 05/16/2025 12:07 PM EST [facility] Specimen Type POC Capillary 05/16/2025 12:07 PM EST [facility] Blood Capillary blood specimen / Unknown 05/16/2025 12:06 PM EST 05/16/2025 12:07 PM EST Selin Lee MD LAB POINT OF CARE TE ST DOCKED DEVICE UNSOLICITED RESULTS Final Result Performing Organization Address [facility] de Phone Number [facility] [address] [place] [address] * (ABNORMAL) POCT glucose meter (05/16/2025 8:17 AM EST) [facility] POCT Glucose 168(H) 74 - 99 mg/dL [...] Comment 05/16/2025 8:21 AM EST [facility] Net[facility] Engineer ID Char Hinojosa 05/16/2025 8:21 AM EST [facility] Device ID [id number] 05/16/2025 8:21 AM EST [facility] Specimen Type POC Capillary 05/16/2025 8:21 AM EST [facility] Blood Capillary blood specimen / Unknown 05/16/2025 8:17 AM EST 05/16/2025 8:21 AM EST Selin Lee MD LAB POINT OF CARE TE ST DOCKED DEVICE UNSOLICITED RESULTS Final Result Performing Organization Address City/[facility] Co de Phone Number [facility] [address] [place] [address] * (ABNORMAL) CBC and Differential (05/16/2025 4:08 AM EST) [facility] WBC Count 7.97 3.70 - 10.30 10*3/uL LAB HEMATOLOGY METHOD 05/16/2025 4:26 AM EST [facility] RBC Count 4.27(L) 4.60 - 6.10 10*6/uL LAB HEMATOLOGY METHOD 05/16/2025 4:26 AM [facility] HGB 9.5(L) 13.7 - 17.5 g/dL LAB HEMATOLOGY METHOD 05/16/2025 4:26 AM [facility] HCT 31.6(L) 40.0 - 51.0 % LAB HEMATOLOGY METHOD 05/16/2025 4:26 AM [facility] Platelet Count 264 155 - 369 10*3/uL LAB HEMATOLOGY METHOD 05/16/2025 4:26 AM [facility] MCV 74(L) 79 - 98 fL LAB HEMATOLOGY METHOD 05/16/2025 4:26 AM [facility] MCH 22.2(L) 26.0 - 32.0 pg LAB HEMATOLOGY METHOD 05/16/2025 4:26 AM [facility] MCHC 30.1(L) 30.7 - 35.5 g/dL LAB HEMATOLOGY METHOD 05/16/2025 4:26 AM [facility] RDW 17.9(H) 11.5 - 14.5 % LAB HEMATOLOGY METHOD 05/16/2025 4:26 AM [facility] MPV 9.2 8.8 - 12.5 fL LAB HEMATOLOGY METHOD 05/16/2025 4:26 AM [facility] nRBC 0.0 <=0.0 per 100 WBCs LAB HEMATOLOGY METHOD 05/16/2025 4:26 AM [facility] Differential Type Automated LAB HEMATOLOGY METHOD 05/16/2025 4:26 AM [facility] Neutrophils % 67 % LAB HEMATOLOGY METHOD 05/16/2025 4:26 AM [facility] Lymphocytes % 16 % LAB HEMATOLOGY METHOD 05/16/2025 4:26 AM [facility] Monocytes % 12 % LAB HEMATOLOGY METHOD 05/16/2025 4:26 AM [facility] Eosinophils % 3 % LAB HEMATOLOGY METHOD 05/16/2025 4:26 AM [facility] Basophils % 1 % LAB HEMATOLOGY METHOD 05/16/2025 4:26 AM [facility] Immature Granulocytes % 1 % LAB HEMATOLOGY METHOD 05/16/2025 4:26 AM [facility] Neutrophils Absolute 5.39 1.60 - 6.10 10*3/uL LAB HEMATOLOGY METHOD 05/16/2025 4:26 AM [facility] Lymphocytes Absolute 1.30 1.20 - 3.90 10*3/uL LAB HEMATOLOGY METHOD 05/16/2025 4:26 AM EST [facility] Monocytes Absolute 0.93(H) 0.30 - 0.90 10*3/uL LAB HEMATOLOGY METHOD 05/16/2025 4:26 AM EST [facility] Eosinophils Absolute 0.26 0.00 - 0.50 10*3/uL LAB HEMATOLOGY METHOD 05/16/2025 4:26 AM EST [facility] Basophils Absolute 0.05 0.00 - 0.10 10*3/uL LAB HEMATOLOGY METHOD 05/16/2025 4:26 AM EST [facility] Immature Granulocytes Absolute 0.04 0.00 - 0.06 10*3/uL LAB HEMATOLOGY METHOD 05/16/2025 4:26 AM EST [facility] Blood Venous blood specimen / Unknown Venipuncture / Unknown 05/16/2025 4:08 AM EST 05/16/2025 4:17 AM EST Narrative [facility] - 05/16/2025 4:26 AM EST Therapeutic decision making should be based on absolute values, rather than percentages. us Selin Lee MD LAB BLOOD ORDERABLES Final Re sult Performing Organization Address City/[facility]/ZIP Co de Phone Number [facility] [address] [place] [address] * (ABNORMAL) Magnesium, Plasma (05/16/2025 4:08 AM EST) Magnesium, Plasma 1.8(L) 1.9 - 2.4 mg/dL 05/16/2025 4:48 AM EST [facility] Blood Venous blood specimen / Unknown Venipuncture / Unknown 05/16/2025 4:08 AM EST 05/16/2025 4:16 AM EST us Selin Lee MD LAB BLOOD ORDERABLES Final Re sult Performing Organization Address City/[facility]/ZIP Co de Phone Number [facility] [address] [place] [address] * (ABNORMAL) Basic Metabolic Panel, Plasma (05/16/2025 4:08 AM EST) Glucose, Plasma 168(H) 74 - 99 mg/dL 05/16/2025 4:48 AM EST [facility] BUN, Plasma 19 7 - 21 mg/dL 05/16/2025 4:48 AM EST [facility] Creatinine, Plasma 0.86 0.70 - 1.20 mg/dL 05/16/2025 4:48 AM EST [facility] BUN/Creatinine Ratio 22 05/16/2025 4:48 AM EST [facility] Sodium, Plasma 131(L) 136 - 145 mmol/L 05/16/2025 4:48 AM EST [facility] Potassium, Plasma 3.6 3.6 - 4.9 mmol/L 05/16/2025 4:48 AM EST [facility] Chloride, Plasma 88(L) 97 - 107 mmol/L 05/16/2025 4:48 AM EST [facility] CO2, Plasma 34(H) 22 - 29 mmol/L 05/16/2025 4:48 AM EST [facility] Anion Gap 9 6 - 16 mmol/L 05/16/2025 4:48 AM EST [facility] Total Calcium, Plasma 9.3 8.9 - 10.2 mg/dL 05/16/2025 4:48 AM EST [facility] eGFRcr 107.5 mL/min/1.7 3m*2 05/16/2025 4:48 AM EST [facility] Comment:Reported eGFRcr in m L/min/1.73m2 is based the CKD-EPI 2020 equation that does not use a race coefficient. Blood Venous blood specimen / Unknown Venipuncture / Unknown 05/16/2025 4:08 AM EST 05/16/2025 4:16 AM EST us Selin Lee MD LAB BLOOD ORDERABLES Final Re sult [facility] [address] [place] [address] * Phosphorus, Plasma (05/16/2025 4:08 AM EST) Phosphorus, Plasma 3.7 2.5 - 4.5 mg/dL 05/16/2025 4:48 AM EST [facility] Blood Venous blood specimen / Unknown Venipuncture / Unknown 05/16/2025 4:08 AM EST 05/16/2025 4:16 AM EST us Selin Lee MD LAB BLOOD ORDERABLES Final Re sult Performing Organization Address City/[facility]/ZIP Co de Phone Number [facility] [address] [place] [address] * (ABNORMAL) POCT glucose meter (05/15/2025 8:00 [...] Comment 05/15/2025 8:02 PM EST [facility] Engineer ID Timo Campbell 8:02 PM EST [facility] Device ID [id number] 05/15/2025 8:02 PM EST [facility] Specimen Type POC Capillary 05/15/2025 8:02 PM EST [facility] Blood Capillary blood specimen / Unknown 05/15/2025 8:00 PM EST 05/15/2025 8:02 PM EST us Selin Lee MD LAB POINT OF CARE TE ST DOCKED DEVICE UNSOLICITED RESULTS Final Result Performing Organization Address City/[facility]/ZIP Co de Phone Number [facility] [address] [place] [address] * (ABNORMAL) POCT glucose meter (05/15/2025 4:52 [...] Comment 05/15/2025 4:53 PM EST [facility] Engineer ID Char Hinojosa 05/15/2025 4:53 PM EST [facility] Device ID [id number] 05/15/2025 4:53 PM EST [facility] Specimen Type POC Capillary 05/15/2025 4:53 PM EST [facility] Blood Capillary blood specimen / Unknown 05/15/2025 4:52 PM EST 05/15/2025 4:53 PM EST us Selin Lee MD LAB POINT OF CARE TE ST DOCKED DEVICE UNSOLICITED RESULTS Final Result Performing Organization Address City/State/[facility] Co de Phone Number [facility] [address] [place] [address] * (ABNORMAL) POCT glucose meter (05/15/2025 12:46 PM EST) [facility] Signature POCT Glucose 233(H) 74 - 99 mg/dL 05/15/2025 12:48 PM EST [facility] Comment:Accuracy of a glucos e result [...] Comment 05/15/2025 12:48 PM EST [facility] Engineer ID Santy Garcia 05/15/2025 12:48 PM EST [facility] Device ID [id number] 05/15/2025 12:48 PM EST [facility] Specimen Type POC Capillary 05/15/2025 12:48 PM EST [facility] Blood Capillary blood specimen / Unknown 05/15/2025 12:46 PM EST 05/15/2025 12:48 PM EST us Selin Lee MD LAB POINT OF CARE TE ST DOCKED DEVICE UNSOLICITED RESULTS Final Result Performing Organization Address City/[facility]/ZIP Co de Phone Number [facility] [address] [place] [address] * (ABNORMAL) POCT glucose meter (05/15/2025 11:31 [...] for testing. Comment 05/15/2025 11:33 AM EST [facility] Engineer ID Char Hinojosa 05/15/2025 11:33 AM EST [facility] Device ID [id number] 05/15/2025 11:33 AM EST [facility] Specimen Type POC Capillary 05/15/2025 11:33 AM EST [facility] Blood Capillary blood specimen / Unknown 05/15/2025 11:31 AM EST 05/15/2025 11:33 AM EST us Selin Lee MD LAB POINT OF CARE TE ST DOCKED DEVICE UNSOLICITED RESULTS Final Result Performing Organization Address City/[facility] Co de Phone Number [facility] [address] [place] [address] * (ABNORMAL) POCT glucose meter (05/15/2025 8:12 [...] 05/15/2025 8:14 AM EST [facility] Netbackup Engineer ID Char iHnojosa 05/15/2025 8:14 AM EST [facility] Device ID [id number] 05/15/2025 8:14 AM EST [facility] Specimen Type POC Capillary 05/15/2025 8:14 AM EST [facility] Blood Capillary blood specimen / Unknown 05/15/2025 8:12 AM EST 05/15/2025 8:14 AM EST Selin Lee MD LAB POINT OF CARE TE ST DOCKED DEVICE UNSOLICITED RESULTS Final Result [facility] [address] [place] [address] * (ABNORMAL) CBC and Differential (05/15/2025 2:24 AM EST) WBC Count 8.81 3.70 - 10.30 10*3/uL LAB HEMATOLOGY METHOD 05/15/2025 2:41 AM EST [facility] RBC Count 4.49(L) 4.60 - 6.10 10*6/uL LAB HEMATOLOGY METHOD 05/15/2025 2:41 AM EST [facility] HGB 9.9(L) 13.7 - 17.5 g/dL LAB HEMATOLOGY METHOD 05/15/2025 2:41 AM EST [facility] HCT 33.3(L) 40.0 - 51.0 % LAB HEMATOLOGY METHOD 05/15/2025 2:41 AM EST [facility] Platelet Count 286 155 - 369 10*3/uL LAB HEMATOLOGY METHOD 05/15/2025 2:41 AM EST [facility] MCV 74(L) 79 - 98 fL LAB HEMATOLOGY METHOD 05/15/2025 2:41 AM EST [facility] MCH 22.0(L) 26.0 - 32.0 pg LAB HEMATOLOGY METHOD 05/15/2025 2:41 AM EST [facility] MCHC 29.7(L) 30.7 - 35.5 g/dL LAB HEMATOLOGY METHOD 05/15/2025 2:41 AM EST [facility] RDW 17.8(H) 11.5 - 14.5 % LAB HEMATOLOGY METHOD 05/15/2025 2:41 AM EST [facility] MPV 9.4 8.8 - 12.5 fL LAB HEMATOLOGY METHOD 05/15/2025 2:41 AM [facility] nRBC 0.0 <=0.0 per 100 WBCs LAB HEMATOLOGY METHOD 05/15/2025 2:41 AM [facility] Differential Type Automated LAB HEMATOLOGY METHOD 05/15/2025 2:41 AM [facility] Neutrophils % 71 % LAB HEMATOLOGY METHOD 05/15/2025 2:41 AM [facility] Lymphocytes % 14 % LAB HEMATOLOGY METHOD 05/15/2025 2:41 AM [facility] Monocytes % 11 % LAB HEMATOLOGY METHOD 05/15/2025 2:41 AM [facility] Eosinophils % 3 % LAB HEMATOLOGY METHOD 05/15/2025 2:41 AM [facility] Basophils % 1 % LAB HEMATOLOGY METHOD 05/15/2025 2:41 AM [facility] Immature Granulocytes % 0 % LAB HEMATOLOGY METHOD 05/15/2025 2:41 AM [facility] Neutrophils Absolute 6.25(H) 1.60 - 6.10 10*3/uL LAB HEMATOLOGY METHOD 05/15/2025 2:41 AM [facility] Lymphocytes Absolute 1.27 1.20 - 3.90 10*3/uL LAB HEMATOLOGY METHOD 05/15/2025 2:41 AM [facility] Monocytes Absolute 0.95(H) 0.30 - 0.90 10*3/uL LAB HEMATOLOGY METHOD 05/15/2025 2:41 AM [facility] Eosinophils Absolute 0.27 0.00 - 0.50 10*3/uL LAB HEMATOLOGY METHOD 05/15/2025 2:41 AM [facility] Basophils Absolute 0.04 0.00 - 0.10 10*3/uL LAB HEMATOLOGY METHOD 05/15/2025 2:41 AM [facility] Immature Granulocytes Absolute 0.03 0.00 - 0.06 10*3/uL LAB HEMATOLOGY METHOD 05/15/2025 2:41 AM [facility] Blood Venous blood specimen / Unknown Venipuncture / Unknown 05/15/2025 2:24 AM EST 05/15/2025 2:33 AM EST [facility] - 05/15/2025 2:41 AM EST Therapeutic decision making should be based on absolute values, rather than percentages. us Selin Lee MD LAB BLOOD ORDERABLES Final Re sult Performing Organization Address City/[facility]/ZIP Co de Phone Number [facility] [address] [place] [address] * (ABNORMAL) Magnesium, Plasma (05/15/2025 2:24 AM EST) Magnesium, Plasma 1.8(L) 1.9 - 2.4 mg/dL 05/15/2025 3:03 AM EST [facility] Blood Venous blood specimen / Unknown Venipuncture / Unknown 05/15/2025 2:24 AM EST 05/15/2025 2:32 AM EST us Selin Lee MD LAB BLOOD ORDERABLES Final Re sult Performing Organization Address [facility] Co de Phone Number [facility] [address] [place] [address] * (ABNORMAL) Basic Metabolic Panel, Plasma (05/15/2025 2:24 AM EST) Glucose, Plasma 162(H) 74 - 99 mg/dL 05/15/2025 3:03 AM EST [facility] BUN, Plasma 15 7 - 21 mg/dL 05/15/2025 3:03 AM EST [facility] Creatinine, Plasma 0.91 0.70 - 1.20 mg/dL 05/15/2025 3:03 AM EST [facility] BUN/Creatinine Ratio 16 05/15/2025 3:03 AM EST [facility] Sodium, Plasma 133(L) 136 - 145 mmol/L 05/15/2025 3:03 AM EST [facility] Potassium, Plasma 3.3(L) 3.6 - 4.9 mmol/L 05/15/2025 3:03 AM EST [facility] Chloride, Plasma 87(L) 97 - 107 mmol/L 05/15/2025 3:03 AM EST [facility] CO2, Plasma 37(H) 22 - 29 mmol/L 05/15/2025 3:03 AM EST [facility] Anion Gap 9 6 - 16 mmol/L 05/15/2025 3:03 AM EST [facility] Total Calcium, Plasma 9.2 8.9 - 10.2 mg/dL 05/15/2025 3:03 AM EST [facility] eGFRcr 104.6 mL/min/1.7 3m*2 05/15/2025 3:03 AM EST [facility] Comment:Reported eGFRcr in m L/min/1.73m2 is based the CKD-EPI 2020 equation that does not use a race coefficient. Blood Venous blood specimen / Unknown Venipuncture / Unknown 05/15/2025 2:24 AM EST 05/15/2025 2:32 AM EST us Selin Lee MD LAB BLOOD ORDERABLES Final Re sult Performing Organization Address [facility] Co de Phone Number [facility] [address] [place] [address] * Phosphorus, Plasma (05/15/2025 2:24 AM EST) Phosphorus, Plasma 3.7 2.5 - 4.5 mg/dL 05/15/2025 3:03 AM EST [facility] Blood Venous blood specimen / Unknown Venipuncture / Unknown 05/15/2025 2:24 AM EST 05/15/2025 2:32 AM EST us Selin Lee MD LAB BLOOD ORDERABLES Final Re sult Performing Organization Address City/[facility] Co de Phone Number [facility] [address] [place] [address] * (ABNORMAL) POCT glucose meter (05/14/2025 8:09 PM EST) POCT Glucose 194(H) 74 - 99 mg/dL 05/14/2025 8:11 PM EST [facility] Comment:Accuracy of a glucos e result [...] 05/14/2025 8:11 PM EST [facility] Netbackup Engineer ID Stella Coleman 05/14/20 8:11 PM EST [facility] Device ID [id number] 05/14/2025 8:11 PM EST [facility] Specimen Type POC Capillary 05/14/2025 8:11 PM EST [facility] Blood Capillary blood specimen / Unknown 05/14/2025 8:09 PM EST 05/14/2025 8:11 PM EST us Selin Lee MD LAB POINT OF CARE TE ST DOCKED DEVICE UNSOLICITED RESULTS Final Result Performing Organization Address City/[facility] Co de Phone Number [facility] [address] [place] [address] * (ABNORMAL) POCT glucose meter (05/14/2025 5:10 PM EST) POCT Glucose 320(H) 74 - 99 mg/dL 05/14/2025 5:13 PM EST [facility] Comment:Accuracy of a glucos e result [...] Comment 05/14/2025 5:13 PM EST [facility] Netbackup Engineer ID Dunia Montgomery 05/14/2025 5:13 PM EST [facility] Device ID [id number] 05/14/2025 5:13 PM EST [facility] Specimen Type POC Capillary 05/14/2025 5:13 PM EST [facility] Blood Capillary blood specimen / Unknown 05/14/2025 5:10 PM EST 05/14/2025 5:13 PM EST us Selin Lee MD LAB POINT OF CARE TE ST DOCKED DEVICE UNSOLICITED RESULTS Final Result Performing Organization Address City/[facility]/ZIP Co de Phone Number [facility] [address] [place] [address] * (ABNORMAL) POCT glucose meter (05/14/2025 12:15 PM EST) Pathologist [facility] POCT Glucose 260(H) 74 - 99 mg/dL [...] 05/14/2025 4:51 PM EST [facility] Netbackup Engineer ID Dunia Montgomery 05/14/2025 4:51 PM EST [facility] Device ID [id number] 05/14/2025 4:51 PM EST [facility] Specimen Type POC Capillary 05/14/2025 4:51 PM EST [facility] Blood Capillary blood specimen / Unknown 05/14/2025 12:15 PM EST 05/14/2025 4:51 PM EST Selin Lee MD LAB POINT OF CARE TE ST DOCKED DEVICE UNSOLICITED RESULTS Final Result Performing Organization Address City/State/[facility] Co de Phone Number [facility] [address] [place] [id number] * (ABNORMAL) POCT glucose meter (05/14/2025 8:30 AM EST) [facility] POCT Glucose 321(H) 74 - 99 mg/dL [...] 05/14/2025 8:33 AM EST [facility] Netbackup Engineer ID Dunia Montgomery 05/14/2025 8:33 AM EST [facility] Device ID [id number] 05/14/2025 8:33 AM EST [facility] Specimen Type POC Capillary 05/14/2025 8:33 AM EST [facility] Blood Capillary blood specimen / Unknown 05/14/2025 8:30 AM EST 05/14/2025 8:33 AM EST Selin Lee MD LAB POINT OF CARE TE ST DOCKED DEVICE UNSOLICITED RESULTS Final Result Performing Organization Address City/[facility] Co de Phone Number [facility] [address] [place] [address] * (ABNORMAL) POCT glucose meter (05/14/2025 4:49 AM EST) Pathologist [facility] POCT Glucose 306(H) 74 - 99 mg/dL 05/31/2025 3:12 PM EST [facility] Comment:Accuracy of a glucos e result [...] for testing. Comment 05/31/2025 3:12 PM EST [facility] Netbackup Engineer ID Asiya Nix 025 3:12 PM EST [facility] Device ID [id number] 05/31/2025 3:12 PM EST [facility] Specimen Type POC Capillary 05/31/2025 3:12 PM EST [facility] Blood Capillary blood specimen / Unknown 05/14/2025 4:49 AM EST 05/31/2025 3:12 PM EST Wily Goyal DO LAB POINT OF CARE TE ST DOCKED DEVICE UNSOLICITED RESULTS Final Result Performing Organization Address City/[facility]/ZIP Co de Phone Number [facility] [address] [place] [address] * (ABNORMAL) CBC and Differential (05/14/2025 1:45 AM EDT) WBC Count 7.88 3.70 - 10.30 10*3/uL LAB HEMATOLOGY METHOD 05/14/2025 2:47 AM EST [facility] RBC Count 4.25(L) 4.60 - 6.10 10*6/uL LAB HEMATOLOGY METHOD 05/14/2025 2:47 AM EST [facility] HGB 9.7(L) 13.7 - 17.5 g/dL LAB HEMATOLOGY METHOD 05/14/2025 2:47 AM EST [facility] HCT 31.7(L) 40.0 - 51.0 % LAB HEMATOLOGY METHOD 05/14/2025 2:47 AM EST [facility] Platelet Count 273 155 - 369 10*3/uL LAB HEMATOLOGY METHOD 05/14/2025 2:47 AM EST [facility] MCV 75(L) 79 - 98 fL LAB HEMATOLOGY METHOD 05/14/2025 2:47 AM EST [facility] MCH 22.8(L) 26.0 - 32.0 pg LAB HEMATOLOGY METHOD 05/14/2025 2:47 AM EST [facility] MCHC 30.6(L) 30.7 - 35.5 g/dL LAB HEMATOLOGY METHOD 05/14/2025 2:47 AM EST [facility] RDW 17.9(H) 11.5 - 14.5 % LAB HEMATOLOGY METHOD 05/14/2025 2:47 AM EST [facility] MPV 9.6 8.8 - 12.5 fL LAB HEMATOLOGY METHOD 05/14/2025 2:47 AM EST [facility] nRBC 0.0 <=0.0 per 100 WBCs LAB HEMATOLOGY METHOD 05/14/2025 2:47 AM EST [facility] Differential Type Automated LAB HEMATOLOGY METHOD 05/14/2025 2:47 AM EST [facility] Neutrophils % 66 % LAB HEMATOLOGY METHOD 05/14/2025 2:47 AM EST [facility] Lymphocytes % 18 % LAB HEMATOLOGY METHOD 05/14/2025 2:47 AM EST [facility] Monocytes % 11 % LAB HEMATOLOGY METHOD 05/14/2025 2:47 AM EST [facility] Eosinophils % 4 % LAB HEMATOLOGY METHOD 05/14/2025 2:47 AM EST [facility] Basophils % 1 % LAB HEMATOLOGY METHOD 05/14/2025 2:47 AM EST [facility] Immature Granulocytes % 0 % LAB HEMATOLOGY METHOD 05/14/2025 2:47 AM EST [facility] Neutrophils Absolute 5.20 1.60 - 6.10 10*3/uL LAB HEMATOLOGY METHOD 05/14/2025 2:47 AM EST [facility] Lymphocytes Absolute 1.44 1.20 - 3.90 10*3/uL LAB HEMATOLOGY METHOD 05/14/2025 2:47 AM EST [facility] Monocytes Absolute 0.85 0.30 - 0.90 10*3/uL LAB HEMATOLOGY METHOD 05/14/2025 2:47 AM EST [facility] Eosinophils Absolute 0.30 0.00 - 0.50 10*3/uL LAB HEMATOLOGY METHOD 05/14/2025 2:47 AM EST [facility] Basophils Absolute 0.06 0.00 - 0.10 10*3/uL LAB HEMATOLOGY METHOD 05/14/2025 2:47 AM EST [facility] Immature Granulocytes Absolute 0.03 0.00 - 0.06 10*3/uL LAB HEMATOLOGY METHOD 05/14/2025 2:47 AM EST [facility] Blood Venous blood specimen / Unknown Venipuncture / Unknown 05/14/2025 1:45 AM EDT 05/14/2025 2:24 AM EST Narrative [facility] - 05/14/2025 2:47 AM EST Therapeutic decision making should be based on absolute values, rather than percentages. us Selin Lee MD LAB BLOOD ORDERABLES Final Re sult Performing Organization Address [facility]/ZIP Co de Phone Number [facility] [address] [place] [address] * (ABNORMAL) Magnesium, Plasma (05/14/2025 1:45 AM EDT) Magnesium, Plasma 1.7(L) 1.9 - 2.4 mg/dL 05/14/2025 2:58 AM EST [facility] Blood Venous blood specimen / Unknown Venipuncture / Unknown 05/14/2025 1:45 AM EDT 05/14/2025 2:25 AM EST us Selin Lee MD LAB BLOOD ORDERABLES Final Re sult Performing Organization Address City/[facility]/ZIP Co de Phone Number [facility] [address] [place] [address] * (ABNORMAL) Basic Metabolic Panel, Plasma (05/14/2025 1:45 AM EDT) Glucose, Plasma 282(H) 74 - 99 mg/dL 05/14/2025 2:58 AM EST [facility] BUN, Plasma 16 7 - 21 mg/dL 05/14/2025 2:58 AM EST [facility] Creatinine, Plasma 0.85 0.70 - 1.20 mg/dL 05/14/2025 2:58 AM EST [facility] BUN/Creatinine Ratio 19 05/14/2025 2:58 AM EST [facility] Sodium, Plasma 132(L) 136 - 145 mmol/L 05/14/2025 2:58 AM EST [facility] Potassium, Plasma 3.5(L) 3.6 - 4.9 mmol/L 05/14/2025 2:58 AM EST [facility] Chloride, Plasma 87(L) 97 - 107 mmol/L 05/14/2025 2:58 AM EST [facility] CO2, Plasma 34(H) 22 - 29 mmol/L 05/14/2025 2:58 AM EST [facility] Anion Gap 11 6 - 16 mmol/L 05/14/2025 2:58 AM EST [facility] Total Calcium, Plasma 9.2 8.9 - 10.2 mg/dL 05/14/2025 2:58 AM EST [facility] eGFRcr 107.9 mL/min/1.7 3m*2 05/14/2025 2:58 AM EST [facility] Comment:Reported eGFRcr in m L/min/1.73m2 is based the CKD-EPI 2020 equation that does not use a race coefficient. Blood Venous blood specimen / Unknown Venipuncture / Unknown 05/14/2025 1:45 AM EDT 05/14/2025 2:25 AM EST us Selin Lee MD LAB BLOOD ORDERABLES Final Re sult [facility] [address] [place] [address] * Phosphorus, Plasma (05/14/2025 1:45 AM EDT) [facility] Phosphorus, Plasma 3.3 2.5 - 4.5 mg/dL 05/14/2025 2:58 AM EST [facility] Blood Venous blood specimen / Unknown Venipuncture / Unknown 05/14/2025 1:45 AM EDT 05/14/2025 2:25 AM EST us Selin Lee MD LAB BLOOD ORDERABLES Final Re sult [facility] [address] [place] [address] * (ABNORMAL) POCT glucose meter (05/13/2025 7:59 PM EDT) [facility] POCT Glucose 257(H) 74 - 99 mg/dL [...] Comment 05/31/2025 3:12 PM EST [facility] Netbackup Engineer ID Stella Coleman 05/31/20 3:12 PM EST [facility] Device ID [id number] 05/31/2025 3:12 PM EST [facility] Specimen Type POC Capillary 05/31/2025 3:12 PM EST [facility] Blood Capillary blood specimen / Unknown 05/13/2025 7:59 PM EDT 05/31/2025 3:12 PM EST us Wily Goyal DO LAB POINT OF CARE TE ST DOCKED DEVICE UNSOLICITED RESULTS Final Result Performing Organization Address City/[facility]/ZIP Co de Phone Number [facility] [address] [place] [address] * (ABNORMAL) POCT glucose meter (05/13/2025 4:58 PM EDT) [facility] POCT Glucose 217(H) 74 - 99 mg/dL [...] 05/13/2025 5:00 PM EDT [facility] Net[employer] Engineer ID Priyanka Negrete 05/13/20 5:00 PM EDT [facility] Device ID [id number] 05/13/2025 5:00 PM EDT [facility] Specimen Type POC Capillary 05/13/2025 5:00 PM EDT [facility] Blood Capillary blood specimen / Unknown 05/13/2025 4:58 PM EDT 05/13/2025 5:00 PM EDT Selin Lee MD LAB POINT OF CARE TE ST DOCKED DEVICE UNSOLICITED RESULTS Final Result [facility] [address] [place] [address] * (ABNORMAL) POCT glucose meter (05/13/2025 11:37 AM EDT) [facility] POCT Glucose 255(H) 74 - 99 mg/dL [...] Comment 05/13/2025 11:41 AM EDT [facility] Netbackup Engineer ID Priyanka Negrete 05/13/20 11:41 AM EDT [facility] Device ID [id number] 05/13/2025 11:41 AM EDT [facility] Specimen Type POC Capillary 05/13/2025 11:41 AM EDT [facility] Blood Capillary blood specimen / Unknown 05/13/2025 11:37 AM EDT 05/13/2025 11:41 AM EDT Selin Lee MD LAB POINT OF CARE TE ST DOCKED DEVICE UNSOLICITED RESULTS Final Result Performing Organization Address [facility] Co de Phone Number [facility] [address] [place] [address] * (ABNORMAL) POCT glucose meter (05/13/2025 7:42 AM EDT) [facility] POCT Glucose 233(H) 74 - 99 mg/dL [...] Comment 05/13/2025 7:45 AM EDT [facility] Netbackup Engineer ID Priyanka Negrete 05/13/20 7:45 AM EDT [facility] Device ID [id number] 05/13/2025 7:45 AM EDT [facility] Specimen Type POC Capillary 05/13/2025 7:45 AM EDT [facility] Blood Capillary blood specimen / Unknown 05/13/2025 7:42 AM EDT 05/13/2025 7:45 AM EDT Selin Lee MD LAB POINT OF CARE TE ST DOCKED DEVICE UNSOLICITED RESULTS Final Result Performing Organization Address City/[facility] Co de Phone Number [facility] [address] [place] [address] * (ABNORMAL) CBC and Differential (05/13/2025 3:54 AM EDT) [facility] WBC Count 7.92 3.70 - 10.30 10*3/uL LAB HEMATOLOGY METHOD 05/13/2025 4:11 AM EDT [facility] RBC Count 4.40(L) 4.60 - 6.10 10*6/uL LAB HEMATOLOGY METHOD 05/13/2025 4:11 AM EDT [facility] HGB 9.9(L) 13.7 - 17.5 g/dL LAB HEMATOLOGY METHOD 05/13/2025 4:11 AM EDT [facility] HCT 33.0(L) 40.0 - 51.0 % LAB HEMATOLOGY METHOD 05/13/2025 4:11 AM EDT [facility] Platelet Count 276 155 - 369 10*3/uL LAB HEMATOLOGY METHOD 05/13/2025 4:11 AM EDT [facility] MCV 75(L) 79 - 98 fL LAB HEMATOLOGY METHOD 05/13/2025 4:11 AM EDT [facility] MCH 22.5(L) 26.0 - 32.0 pg LAB HEMATOLOGY METHOD 05/13/2025 4:11 AM EDT [facility] MCHC 30.0(L) 30.7 - 35.5 g/dL LAB HEMATOLOGY METHOD 05/13/2025 4:11 AM EDT [facility] RDW 17.8(H) 11.5 - 14.5 % LAB HEMATOLOGY METHOD 05/13/2025 4:11 AM EDT [facility] MPV 9.3 8.8 - 12.5 fL LAB HEMATOLOGY METHOD 05/13/2025 4:11 AM EDT [facility] nRBC 0.0 <=0.0 per 100 WBCs LAB HEMATOLOGY METHOD 05/13/2025 4:11 AM EDT [facility] Differential Type Automated LAB HEMATOLOGY METHOD 05/13/2025 4:11 AM EDT [facility] Neutrophils % 69 % LAB HEMATOLOGY METHOD 05/13/2025 4:11 AM EDT [facility] Lymphocytes % 17 % LAB HEMATOLOGY METHOD 05/13/2025 4:11 AM EDT [facility] Monocytes % 10 % LAB HEMATOLOGY METHOD 05/13/2025 4:11 AM EDT [facility] Eosinophils % 3 % LAB HEMATOLOGY METHOD 05/13/2025 4:11 AM EDT [facility] Basophils % 1 % LAB HEMATOLOGY METHOD 05/13/2025 4:11 AM EDT [facility] Immature Granulocytes % 0 % LAB HEMATOLOGY METHOD 05/13/2025 4:11 AM EDT [facility] Neutrophils Absolute 5.47 1.60 - 6.10 10*3/uL LAB HEMATOLOGY METHOD 05/13/2025 4:11 AM EDT [facility] Lymphocytes Absolute 1.33 1.20 - 3.90 10*3/uL LAB HEMATOLOGY METHOD 05/13/2025 4:11 AM EDT [facility] Monocytes Absolute 0.78 0.30 - 0.90 10*3/uL LAB HEMATOLOGY METHOD 05/13/2025 4:11 AM EDT [facility] Eosinophils Absolute 0.27 0.00 - 0.50 10*3/uL LAB HEMATOLOGY METHOD 05/13/2025 4:11 AM EDT [facility] Basophils Absolute 0.04 0.00 - 0.10 10*3/uL LAB HEMATOLOGY METHOD 05/13/2025 4:11 AM EDT [facility] Immature Granulocytes Absolute 0.03 0.00 - 0.06 10*3/uL LAB HEMATOLOGY METHOD 05/13/2025 4:11 AM EDT [facility] Blood Venous blood specimen / Unknown Venipuncture / Unknown 05/13/2025 3:54 AM EDT 05/13/2025 4:01 AM EDT Narrative [facility] - 05/13/2025 4:11 AM EDT Therapeutic decision making should be based on absolute values, rather than percentages. us Selin Lee MD LAB BLOOD ORDERABLES Final Re sult Performing Organization Address [facility] Co de Phone Number [facility] [address] [place] [address] * Magnesium, Plasma (05/13/2025 3:54 AM EDT) Magnesium, Plasma 1.9 1.9 - 2.4 mg/dL 05/13/2025 4:28 AM EDT [facility] Blood Venous blood specimen / Unknown Venipuncture / Unknown 05/13/2025 3:54 AM EDT 05/13/2025 4:01 AM EDT us Selin Lee MD LAB BLOOD ORDERABLES Final Re sult Performing Organization Address City/[facility]/ZIP Co de Phone Number [facility] [address] [place] [address] * (ABNORMAL) Basic Metabolic Panel, Plasma (05/13/2025 3:54 AM EDT) Glucose, Plasma 238(H) 74 - 99 mg/dL 05/13/2025 4:28 AM EDT [facility] BUN, Plasma 16 7 - 21 mg/dL 05/13/2025 4:28 AM EDT [facility] Creatinine, Plasma 0.96 0.70 - 1.20 mg/dL 05/13/2025 4:28 AM EDT [facility] BUN/Creatinine Ratio 17 05/13/2025 4:28 AM EDT [facility] Sodium, Plasma 131(L) 136 - 145 mmol/L 05/13/2025 4:28 AM EDT [facility] Potassium, Plasma 3.3(L) 3.6 - 4.9 mmol/L 05/13/2025 4:28 AM EDT [facility] Chloride, Plasma 87(L) 97 - 107 mmol/L 05/13/2025 4:28 AM EDT [facility] CO2, Plasma 37(H) 22 - 29 mmol/L 05/13/2025 4:28 AM EDT [facility] Anion Gap 7 6 - 16 mmol/L 05/13/2025 4:28 AM EDT [facility] Total Calcium, Plasma 9.1 8.9 - 10.2 mg/dL 05/13/2025 4:28 AM EDT [facility] eGFRcr 98.1 mL/min/1.7 3m*2 05/13/2025 4:28 AM EDT [facility] Comment:Reported eGFRcr in m L/min/1.73m2 is based the CKD-EPI 2020 equation that does not use a race coefficient. Blood Venous blood specimen / Unknown Venipuncture / Unknown 05/13/2025 3:54 AM EDT 05/13/2025 4:01 AM EDT us Selin Lee MD LAB BLOOD ORDERABLES Final Re sult [facility] [address] [place] [address] * Phosphorus, Plasma (05/13/2025 3:54 AM EDT) Pathologist [facility] Phosphorus, Plasma 3.3 2.5 - 4.5 mg/dL 05/13/2025 4:28 AM EDT [facility] Blood Venous blood specimen / Unknown Venipuncture / Unknown 05/13/2025 3:54 AM EDT 05/13/2025 4:01 AM EDT us Selin Lee MD LAB BLOOD ORDERABLES Final Re sult [facility] [address] [place] [address] * (ABNORMAL) POCT glucose meter (05/12/2025 7:40 PM EDT) [facility] POCT Glucose 248(H) 74 - 99 mg/dL [...] 05/12/2025 7:42 PM EDT [facility] Net[employer] Engineer ID Stella Coleman 05/12/20 25 7:42 PM EDT [facility] Device ID [id number] 05/12/2025 7:42 PM EDT [facility] Specimen Type POC Capillary 05/12/2025 7:42 PM EDT [facility] Blood Capillary blood specimen / Unknown 05/12/2025 7:40 PM EDT 05/12/2025 7:42 PM EDT us Selin Lee MD LAB POINT OF CARE TE ST DOCKED DEVICE UNSOLICITED RESULTS Final Result [facility] [address] [place] [address] * (ABNORMAL) POCT glucose meter (05/12/2025 4:36 PM EDT) [facility] POCT Glucose 235(H) 74 - 99 mg/dL [...] 05/12/2025 4:38 PM EDT [facility] [employer] Engineer ID Char [email or web address] 05/12/2025 4:38 PM EDT [facility] Device ID [id number] 05/12/2025 4:38 PM EDT [facility] Specimen Type POC Capillary 05/12/2025 4:38 PM EDT [facility] Blood Capillary blood specimen / Unknown 05/12/2025 4:36 PM EDT 05/12/2025 4:38 PM EDT Selin Lee MD LAB POINT OF CARE TE ST DOCKED DEVICE UNSOLICITED RESULTS Final Result Performing Organization Address City/State/[facility] Co de Phone Number [facility] [address] [place] [address] * (ABNORMAL) POCT glucose meter (05/12/2025 11:30 AM EDT) [facility] POCT Glucose 315(H) 74 - 99 mg/dL [...] 05/12/2025 11:32 AM EDT [facility] Netbackup Engineer ID Char Hinojosa 05/12/2025 11:32 AM EDT [facility] Device ID [id number] 05/12/2025 11:32 AM EDT [facility] Specimen Type POC Capillary 05/12/2025 11:32 AM EDT [facility] Blood Capillary blood specimen / Unknown 05/12/2025 11:30 AM EDT 05/12/2025 11:32 AM EDT us Selin Lee MD LAB POINT OF CARE TE ST DOCKED DEVICE UNSOLICITED RESULTS Final Result Performing Organization Address City/[facility]/ZIP Co de Phone Number [facility] [address] [place] [address] * (ABNORMAL) POCT glucose meter (05/12/2025 8:08 AM EDT) POCT Glucose 274(H) 74 - 99 mg/dL 05/12/2025 8:10 AM EDT [facility] Comment:Accuracy of a glucos e result [...] Comment 05/12/2025 8:10 AM EDT [facility] Netbackup Engineer ID Char Hinojosa 05/12/2025 8:10 AM EDT [facility] Device ID [id number] 05/12/2025 8:10 AM EDT [facility] Specimen Type POC Capillary 05/12/2025 8:10 AM EDT [facility] Blood Capillary blood specimen / Unknown 05/12/2025 8:08 AM EDT 05/12/2025 8:10 AM EDT us Selin Lee MD LAB POINT OF CARE TE ST DOCKED DEVICE UNSOLICITED RESULTS Final Result [facility] [address] [place] [address] * (ABNORMAL) CBC and Differential (05/12/2025 3:56 AM EDT) WBC Count 7.24 3.70 - 10.30 10*3/uL LAB HEMATOLOGY METHOD 05/12/2025 4:15 AM EDT [facility] RBC Count 4.28(L) 4.60 - 6.10 10*6/uL LAB HEMATOLOGY METHOD 05/12/2025 4:15 AM EDT [facility] HGB 9.4(L) 13.7 - 17.5 g/dL LAB HEMATOLOGY METHOD 05/12/2025 4:15 AM EDT [facility] HCT 31.8(L) 40.0 - 51.0 % LAB HEMATOLOGY METHOD 05/12/2025 4:15 AM EDT [facility] Platelet Count 266 155 - 369 10*3/uL LAB HEMATOLOGY METHOD 05/12/2025 4:15 AM EDT [facility] MCV 74(L) 79 - 98 fL LAB HEMATOLOGY METHOD 05/12/2025 4:15 AM EDT [facility] MCH 22.0(L) 26.0 - 32.0 pg LAB HEMATOLOGY METHOD 05/12/2025 4:15 AM EDT [facility] MCHC 29.6(L) 30.7 - 35.5 g/dL LAB HEMATOLOGY METHOD 05/12/2025 4:15 AM EDT [facility] RDW 18.0(H) 11.5 - 14.5 % LAB HEMATOLOGY METHOD 05/12/2025 4:15 AM EDT [facility] MPV 9.6 8.8 - 12.5 fL LAB HEMATOLOGY METHOD 05/12/2025 4:15 AM EDT [facility] nRBC 0.0 <=0.0 per 100 WBCs LAB HEMATOLOGY METHOD 05/12/2025 4:15 AM EDT [facility] Differential Type Automated LAB HEMATOLOGY METHOD 05/12/2025 4:15 AM EDT [facility] Neutrophils % 71 % LAB HEMATOLOGY METHOD 05/12/2025 4:15 AM EDT [facility] Lymphocytes % 16 % LAB HEMATOLOGY METHOD 05/12/2025 4:15 AM EDT [facility] Monocytes % 9 % LAB HEMATOLOGY METHOD 05/12/2025 4:15 AM EDT [facility] Eosinophils % 3 % LAB HEMATOLOGY METHOD 05/12/2025 4:15 AM EDT [facility] Basophils % 1 % LAB HEMATOLOGY METHOD 05/12/2025 4:15 AM EDT [facility] Immature Granulocytes % 0 % LAB HEMATOLOGY METHOD 05/12/2025 4:15 AM EDT [facility] Neutrophils Absolute 5.14 1.60 - 6.10 10*3/uL LAB HEMATOLOGY METHOD 05/12/2025 4:15 AM EDT [facility] Lymphocytes Absolute 1.15(L) 1.20 - 3.90 10*3/uL LAB HEMATOLOGY METHOD 05/12/2025 4:15 AM EDT [facility] Monocytes Absolute 0.66 0.30 - 0.90 10*3/uL LAB HEMATOLOGY METHOD 05/12/2025 4:15 AM EDT [facility] Eosinophils Absolute 0.22 0.00 - 0.50 10*3/uL LAB HEMATOLOGY METHOD 05/12/2025 4:15 AM EDT [facility] Basophils Absolute 0.05 0.00 - 0.10 10*3/uL LAB HEMATOLOGY METHOD 05/12/2025 4:15 AM EDT [facility] Immature Granulocytes Absolute 0.02 0.00 - 0.06 10*3/uL LAB HEMATOLOGY METHOD 05/12/2025 4:15 AM EDT [facility] Blood Venous blood specimen / Unknown Venipuncture / Unknown 05/12/2025 3:56 AM EDT 05/12/2025 4:03 AM EDT Narrative [facility] - 05/12/2025 4:15 AM EDT Therapeutic decision making should be based on absolute values, rather than percentages. us Selin Lee MD LAB BLOOD ORDERABLES Final Re sult [facility] [address] [place] [address] * (ABNORMAL) Magnesium, Plasma (05/12/2025 3:56 AM EDT) Magnesium, Plasma 1.7(L) 1.9 - 2.4 mg/dL 05/12/2025 4:36 AM EDT [facility] Blood Venous blood specimen / Unknown Venipuncture / Unknown 05/12/2025 3:56 AM EDT 05/12/2025 4:03 AM EDT us Selin Lee MD LAB BLOOD ORDERABLES Final Re sult [facility] [address] [place] [address] * (ABNORMAL) Basic Metabolic Panel, Plasma (05/12/2025 3:56 AM EDT) Glucose, Plasma 383(H) 74 - 99 mg/dL 05/12/2025 4:36 AM EDT [facility] BUN, Plasma 18 7 - 21 mg/dL 05/12/2025 4:36 AM EDT [facility] Creatinine, Plasma 0.86 0.70 - 1.20 mg/dL 05/12/2025 4:36 AM EDT [facility] BUN/Creatinine Ratio 21 05/12/2025 4:36 AM EDT [facility] Sodium, Plasma 130(L) 136 - 145 mmol/L 05/12/2025 4:36 AM EDT [facility] Potassium, Plasma 3.2(L) 3.6 - 4.9 mmol/L 05/12/2025 4:36 AM EDT [facility] Chloride, Plasma 85(L) 97 - 107 mmol/L 05/12/2025 4:36 AM EDT [facility] CO2, Plasma 36(H) 22 - 29 mmol/L 05/12/2025 4:36 AM EDT [facility] Anion Gap 9 6 - 16 mmol/L 05/12/2025 4:36 AM EDT [facility] Total Calcium, Plasma 8.9 8.9 - 10.2 mg/dL 05/12/2025 4:36 AM EDT [facility] eGFRcr 107.5 mL/min/1.7 3m*2 05/12/2025 4:36 AM EDT [facility] Comment:Reported eGFRcr in m L/min/1.73m2 is based the CKD-EPI 2020 equation that does not use a race coefficient. Blood Venous blood specimen / Unknown Venipuncture / Unknown 05/12/2025 3:56 AM EDT 05/12/2025 4:03 AM EDT us Selin Lee MD LAB BLOOD ORDERABLES Final Re sult Performing Organization Address City/[facility]/ZIP Co de Phone Number [facility] [address] [place] [address] * Phosphorus, Plasma (05/12/2025 3:56 AM EDT) [facility] Phosphorus, Plasma 2.8 2.5 - 4.5 mg/dL 05/12/2025 4:36 AM EDT [facility] Blood Venous blood specimen / Unknown Venipuncture / Unknown 05/12/2025 3:56 AM EDT 05/12/2025 4:03 AM EDT us Selin Lee MD LAB BLOOD ORDERABLES Final Re sult Performing Organization Address [facility] Co de Phone Number [facility] [address] [place] [address] * (ABNORMAL) POCT glucose meter (05/12/2025 3:11 AM EDT) [facility] POCT Glucose 348(H) 74 - 99 mg/dL [...] 05/12/2025 3:13 AM EDT [facility] Netbackup Engineer ID Joel Carmona 05/12/2025 3:13 AM EDT [facility] Device ID [id number] 05/12/2025 3:13 AM EDT [facility] Specimen Type POC Capillary 05/12/2025 3:13 AM EDT [facility] Blood Capillary blood specimen / Unknown 05/12/2025 3:11 AM EDT 05/12/2025 3:13 AM EDT us Selin Lee MD LAB POINT OF CARE TE ST DOCKED DEVICE UNSOLICITED RESULTS Final Result Performing Organization Address City/[facility]/ZIP Co de Phone Number [facility] [address] [place] [address] * (ABNORMAL) POCT glucose meter (05/11/2025 7:57 PM EDT) [facility] POCT Glucose 272(H) 74 - 99 mg/dL [...] Comment 05/11/2025 8:02 PM EDT [facility] Netbackup Engineer ID Joel Carmona 05/11/2025 8:02 PM EDT [facility] Device ID [id number] 05/11/2025 8:02 PM EDT [facility] Specimen Type POC Capillary 05/11/2025 8:02 PM EDT [facility] Blood Capillary blood specimen / Unknown 05/11/2025 7:57 PM EDT 05/11/2025 8:02 PM EDT Selin Lee MD LAB POINT OF CARE TE ST DOCKED DEVICE UNSOLICITED RESULTS Final Result [facility] [address] [place] [address] * (ABNORMAL) POCT glucose meter (05/11/2025 5:05 PM EDT) [facility] POCT Glucose 258(H) 74 - 99 mg/dL [...] 05/11/2025 5:07 PM EDT [facility] Netbackup Engineer ID Char Hinojosa 05/11/2025 5:07 PM EDT [facility] Device ID [id number] 05/11/2025 5:07 PM EDT [facility] Specimen Type POC Capillary 05/11/2025 5:07 PM EDT [facility] Blood Capillary blood specimen / Unknown 05/11/2025 5:05 PM EDT 05/11/2025 5:07 PM EDT us Selin Lee MD LAB POINT OF CARE TE ST DOCKED DEVICE UNSOLICITED RESULTS Final Result Performing Organization Address City/[facility] Co de Phone Number [facility] [address] [place] [address] * (ABNORMAL) POCT glucose meter (05/11/2025 12:13 [...] Comment 05/11/2025 12:15 PM EDT [facility] Netbackup Engineer ID Char Hinojosa 05/11/2025 12:15 PM EDT [facility] Device ID [id number] 05/11/2025 12:15 PM EDT [facility] Specimen Type POC Capillary 05/11/2025 12:15 PM EDT [facility] Blood Capillary blood specimen / Unknown 05/11/2025 12:13 PM EDT 05/11/2025 12:15 PM EDT us Selin Lee MD LAB POINT OF CARE TE ST DOCKED DEVICE UNSOLICITED RESULTS Final Result Performing Organization Address City/[facility] Co de Phone Number [facility] [address] [place] [address] * (ABNORMAL) POCT glucose meter (05/11/2025 7:57 [...] Comment 05/11/2025 7:59 AM EDT [facility] Netbackup Engineer ID Char Hinojosa 05/11/2025 7:59 AM EDT [facility] Device ID [id number] 05/11/2025 7:59 AM EDT [facility] Specimen Type POC Capillary 05/11/2025 7:59 AM EDT [facility] Blood Capillary blood specimen / Unknown 05/11/2025 7:57 AM EDT 05/11/2025 7:59 AM EDT Selin Lee MD LAB POINT OF CARE TE ST DOCKED DEVICE UNSOLICITED RESULTS Final Result Performing Organization Address City/State/[facility] Co de Phone Number [facility] [address] [place] [address] * ECG Adult (05/11/2025 6:11 AM EDT) EKG DIAGNOSIS CLASS Abnormal MUSE ECG Ventricular Rate 59 BPM MUSE ECG Atrial Rate 59 BPM MUSE ECG MI Interval 176 ms MUSE ECG QRSD Interval 160 ms MUSE ECG QT Interval 520 ms MUSE ECG QTC Interval 514 ms MUSE ECG P [place] 21 degrees MUSE ECG R [place] -32 degrees MUSE ECG T Wave [place] -9 degrees MUSE ECG Diagnosis Sinus bradycardia [...] MUSE ECG Diagnosis Confirmed by Tone Lainez ([id number]) on 05/12/2025 11:35:23 AM MUSE ECG 05/11/2025 6:11 AM EDT 05/12/2025 11:35 AM EDT us Selin Lee MD ECG ORDERABLES Final Result MUSE ECG * (ABNORMAL) POCT glucose meter (05/11/2025 3:42 AM EDT) [facility] POCT Glucose 336(H) 74 - 99 mg/dL [...] Comment 05/11/2025 3:45 AM EDT [facility] Netbackup Engineer ID Kaylin Barron 05/11/2025 3:45 AM EDT [facility] Device ID [id number] 05/11/2025 3:45 AM EDT [facility] Specimen Type POC Capillary 05/11/2025 3:45 AM EDT [facility] Blood Capillary blood specimen / Unknown 05/11/2025 3:42 AM EDT 05/11/2025 3:45 AM EDT us Selin Lee MD LAB POINT OF CARE TE ST DOCKED DEVICE UNSOLICITED RESULTS Final Result Performing Organization Address City/[facility]/ZIP Co de Phone Number [facility] [address] [place] [address] * (ABNORMAL) CBC and Differential (05/11/2025 3:24 AM EDT) [facility] WBC Count 6.72 3.70 - 10.30 10*3/uL LAB HEMATOLOGY METHOD 05/11/2025 3:42 AM EDT [facility] RBC Count 4.13(L) 4.60 - 6.10 10*6/uL LAB HEMATOLOGY METHOD 05/11/2025 3:42 AM EDT [facility] HGB 9.5(L) 13.7 - 17.5 g/dL LAB HEMATOLOGY METHOD 05/11/2025 3:42 AM EDT [facility] HCT 31.1(L) 40.0 - 51.0 % LAB HEMATOLOGY METHOD 05/11/2025 3:42 AM EDT [facility] Platelet Count 253 155 - 369 10*3/uL LAB HEMATOLOGY METHOD 05/11/2025 3:42 AM EDT [facility] MCV 75(L) 79 - 98 fL LAB HEMATOLOGY METHOD 05/11/2025 3:42 AM EDT [facility] MCH 23.0(L) 26.0 - 32.0 pg LAB HEMATOLOGY METHOD 05/11/2025 3:42 AM EDT [facility] MCHC 30.5(L) 30.7 - 35.5 g/dL LAB HEMATOLOGY METHOD 05/11/2025 3:42 AM EDT [facility] RDW 17.8(H) 11.5 - 14.5 % LAB HEMATOLOGY METHOD 05/11/2025 3:42 AM EDT [facility] MPV 9.5 8.8 - 12.5 fL LAB HEMATOLOGY METHOD 05/11/2025 3:42 AM EDT [facility] nRBC 0.0 <=0.0 per 100 WBCs LAB HEMATOLOGY METHOD 05/11/2025 3:42 AM EDT [facility] Differential Type Automated LAB HEMATOLOGY METHOD 05/11/2025 3:42 AM EDT [facility] Neutrophils % 68 % LAB HEMATOLOGY METHOD 05/11/2025 3:42 AM EDT [facility] Lymphocytes % 17 % LAB HEMATOLOGY METHOD 05/11/2025 3:42 AM EDT [facility] Monocytes % 11 % LAB HEMATOLOGY METHOD 05/11/2025 3:42 AM EDT [facility] Eosinophils % 3 % LAB HEMATOLOGY METHOD 05/11/2025 3:42 AM EDT [facility] Basophils % 1 % LAB HEMATOLOGY METHOD 05/11/2025 3:42 AM EDT [facility] Immature Granulocytes % 0 % LAB HEMATOLOGY METHOD 05/11/2025 3:42 AM EDT [facility] Neutrophils Absolute 4.61 1.60 - 6.10 10*3/uL LAB HEMATOLOGY METHOD 05/11/2025 3:42 AM EDT [facility] Lymphocytes Absolute 1.11(L) 1.20 - 3.90 10*3/uL LAB HEMATOLOGY METHOD 05/11/2025 3:42 AM EDT [facility] Monocytes Absolute 0.72 0.30 - 0.90 10*3/uL LAB HEMATOLOGY METHOD 05/11/2025 3:42 AM EDT [facility] Eosinophils Absolute 0.21 0.00 - 0.50 10*3/uL LAB HEMATOLOGY METHOD 05/11/2025 3:42 AM EDT [facility] Basophils Absolute 0.05 0.00 - 0.10 10*3/uL LAB HEMATOLOGY METHOD 05/11/2025 3:42 AM EDT [facility] Immature Granulocytes Absolute 0.02 0.00 - 0.06 10*3/uL LAB HEMATOLOGY METHOD 05/11/2025 3:42 AM EDT [facility] Blood Venous blood specimen / Unknown Venipuncture / Unknown 05/11/2025 3:24 AM EDT 05/11/2025 3:30 AM EDT Narrative [facility] - 05/11/2025 3:42 AM EDT Therapeutic decision making should be based on absolute values, rather than percentages. Selin Lee MD LAB BLOOD ORDERABLES Final Re sult Performing Organization Address City/[facility]/ZIP Co de Phone Number [facility] [address] [place] [address] * (ABNORMAL) Magnesium, Plasma (05/11/2025 3:24 AM EDT) Magnesium, Plasma 1.8(L) 1.9 - 2.4 mg/dL 05/11/2025 3:58 AM EDT [facility] Blood Venous blood specimen / Unknown Venipuncture / Unknown 05/11/2025 3:24 AM EDT 05/11/2025 3:30 AM EDT us Selin Lee MD LAB BLOOD ORDERABLES Final Re sult [facility] [address] [place] [address] * (ABNORMAL) Basic Metabolic Panel, Plasma (05/11/2025 3:24 AM EDT) Glucose, Plasma 338(H) 74 - 99 mg/dL 05/11/2025 3:58 AM EDT [facility] BUN, Plasma 18 7 - 21 mg/dL 05/11/2025 3:58 AM EDT [facility] Creatinine, Plasma 0.86 0.70 - 1.20 mg/dL 05/11/2025 3:58 AM EDT [facility] BUN/Creatinine Ratio 21 05/11/2025 3:58 AM EDT [facility] Sodium, Plasma 131(L) 136 - 145 mmol/L 05/11/2025 3:58 AM EDT [facility] Potassium, Plasma 3.2(L) 3.6 - 4.9 mmol/L 05/11/2025 3:58 AM EDT [facility] Chloride, Plasma 85(L) 97 - 107 mmol/L 05/11/2025 3:58 AM EDT [facility] CO2, Plasma 39(H) 22 - 29 mmol/L 05/11/2025 3:58 AM EDT [facility] Anion Gap 7 6 - 16 mmol/L 05/11/2025 3:58 AM EDT [facility] Total Calcium, Plasma 9.1 8.9 - 10.2 mg/dL 05/11/2025 3:58 AM EDT [facility] eGFRcr 107.5 mL/min/1.7 3m*2 05/11/2025 3:58 AM EDT [facility] Comment:Reported eGFRcr in m L/min/1.73m2 is based the CKD-EPI 2020 equation that does not use a race coefficient. Blood Venous blood specimen / Unknown Venipuncture / Unknown 05/11/2025 3:24 AM EDT 05/11/2025 3:30 AM EDT us Selin Lee MD LAB BLOOD ORDERABLES Final Re sult [facility] [address] [place] [address] * Phosphorus, Plasma (05/11/2025 3:24 AM EDT) Phosphorus, Plasma 3.1 2.5 - 4.5 mg/dL 05/11/2025 3:58 AM EDT [facility] Blood Venous blood specimen / Unknown Venipuncture / Unknown 05/11/2025 3:24 AM EDT 05/11/2025 3:30 AM EDT us Selin Lee MD LAB BLOOD ORDERABLES Final Re sult Performing Organization Address City/[facility]/ZIP Co de Phone Number [facility] [address] [place] [address] * (ABNORMAL) POCT glucose meter (05/10/2025 7:07 [...] Comment 05/10/2025 7:10 PM EDT [facility] Netbackup Engineer ID Char Hinojosa 05/10/2025 7:10 PM EDT [facility]ALTH[facility]ARE LAB Device ID [id number] 05/10/2025 7:10 PM EDT [facility] Specimen Type POC Capillary 05/10/2025 7:10 PM EDT [facility] Blood Capillary blood specimen / Unknown 05/10/2025 7:07 PM EDT 05/10/2025 7:10 PM EDT us Selin Lee MD LAB POINT OF CARE TE ST DOCKED DEVICE UNSOLICITED RESULTS Final Result Performing Organization Address City/[facility]/ZIP Co de Phone Number [facility] [address] [place] [address] * (ABNORMAL) POCT glucose meter (05/10/2025 4:55 [...] Comment 05/10/2025 4:57 PM EDT [facility] Netbackup Engineer ID Char Hinojosa 05/10/2025 4:57 PM EDT [facility] Device ID [id number] 05/10/2025 4:57 PM EDT [facility] Specimen Type POC Capillary 05/10/2025 4:57 PM EDT [facility] Blood Capillary blood specimen / Unknown 05/10/2025 4:55 PM EDT 05/10/2025 4:57 PM EDT Selin Lee MD LAB POINT OF CARE TE ST DOCKED DEVICE UNSOLICITED RESULTS Final Result Performing Organization Address City/State/[facility] Co de Phone Number [facility] [address] [place] [address] * (ABNORMAL) POCT glucose meter (05/10/2025 11:41 AM EDT) [facility] Signature POCT Glucose 348(H) 74 - 99 [...] Comment 05/10/2025 11:43 AM EDT [facility] Netbackup Engineer ID Char Hinojosa 05/10/2025 11:43 AM EDT [facility] Device ID [id number] 05/10/2025 11:43 AM EDT [facility] Specimen Type POC Capillary 05/10/2025 11:43 AM EDT [facility] Blood Capillary blood specimen / Unknown 05/10/2025 11:41 AM EDT 05/10/2025 11:43 AM EDT Selin Lee MD LAB POINT OF CARE TE ST DOCKED DEVICE UNSOLICITED RESULTS Final Result [facility] [address] [place] [address] * ECG 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/2025 11:20 AM EDT) EKG DIAGNOSIS CLASS Abnormal MUSE ECG Ventricular Rate 65 BPM MUSE ECG Atrial Rate 65 BPM MUSE ECG MI Interval 198 ms MUSE ECG QRSD Interval 154 ms MUSE ECG QT Interval 508 ms MUSE ECG QTC Interval 528 ms MUSE ECG P [place] 66 degrees MUSE ECG R [place] -39 degrees MUSE ECG T Wave [place] -16 degrees MUSE ECG Diagnosis Normal sinus rhythm with sinus arrhythmia MUSE ECG Diagnosis Left axis deviation MUSE ECG Diagnosis Right bundle branch block MUSE ECG Diagnosis Minimal voltage criteria for LVH, may be normal variant ( R in aVL ) MUSE ECG Diagnosis Abnormal ECG MUSE ECG Diagnosis MUSE ECG Diagnosis Confirmed by Manas Mccauley ([id number]) on 05/10/2025 3:20:48 PM MUSE ECG 05/10/2025 11:2 0 AM EDT 05/10/2025 3:20 PM EDT Selin Lee MD ECG ORDERABLES Final Result Performing Organization Address City/[facility] Co de Phone Number MUSE ECG * (ABNORMAL) POCT glucose meter (05/10/2025 7:30 AM EDT) [facility] POCT Glucose 332(H) 74 - 99 mg/dL [...] 05/10/2025 7:33 AM EDT [facility] Netbackup Engineer ID Char Hinojosa 05/10/2025 7:33 AM EDT [facility] Device ID [id number] 05/10/2025 7:33 AM EDT [facility]ARE [facility] Specimen Type POC Capillary 05/10/2025 7:33 AM EDT [facility] Blood Capillary blood specimen / Unknown 05/10/2025 7:30 AM EDT 05/10/2025 7:33 AM EDT us Selin Lee MD LAB POINT OF CARE TE ST DOCKED DEVICE UNSOLICITED RESULTS Final Result Performing Organization Address City/[facility] Co de Phone Number [facility] [address] [place] [address] * ECG 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/2025 6:14 AM EDT) EKG DIAGNOSIS CLASS Abnormal MUSE ECG Ventricular Rate 56 BPM MUSE ECG Atrial Rate 56 BPM MUSE ECG MI Interval 196 ms MUSE ECG QRSD Interval 164 ms MUSE ECG QT Interval 508 ms MUSE ECG QTC Interval 490 ms MUSE ECG P [place] 74 degrees MUSE ECG R [place] -33 degrees MUSE ECG T Wave [place] -10 degrees MUSE ECG Diagnosis Sinus bradycardia with sinus arrhythmia MUSE ECG Diagnosis Left axis deviation MUSE ECG Diagnosis Right bundle branch block MUSE ECG Diagnosis T wave abnormality, consider lateral ischemia MUSE ECG Diagnosis Abnormal ECG MUSE ECG Diagnosis MUSE ECG Diagnosis Confirmed by Manas Mccauley ([id number]) on 05/10/2025 2:45:37 PM MUSE ECG 05/10/2025 6:14 AM EDT 05/10/2025 2:45 PM EDT Selin Lee MD ECG ORDERABLES Final Result Performing Organization Address [facility] Co de Phone Number MUSE ECG * (ABNORMAL) POCT glucose meter (05/10/2025 4:00 AM EDT) Pathologist [facility] POCT Glucose 377(H) 74 - 99 mg/dL [...] Comment 05/10/2025 4:02 AM EDT [facility] Netbackup Engineer ID Maribell Saeed 4:02 AM EDT [facility]ALTH[facility]ARE LAB Device ID [id number] 05/10/2025 4:02 AM EDT [facility]ARE [facility] Specimen Type POC Capillary 05/10/2025 4:02 AM EDT [facility] Blood Capillary blood specimen / Unknown 05/10/2025 4:00 AM EDT 05/10/2025 4:02 AM EDT Diane Guzman MD LAB POINT OF CARE T EST DOCKED DEVICE UNSOLICITED RESULTS Final Result Performing Organization Address City/[facility] Co de Phone Number [facility] [address] [place] [address] * (ABNORMAL) POCT glucose meter (05/09/2025 8:37 PM EDT) [facility] Signature POCT Glucose 296(H) 74 - 99 mg/dL [...] Comment 05/09/2025 8:39 PM EDT [facility] Netbackup Engineer ID Maribell Saeed 8:39 PM EDT [facility]ARE LAB Device ID [id number] 05/09/2025 8:39 PM EDT [facility] Specimen Type POC Capillary 05/09/2025 8:39 PM EDT [facility] Blood Capillary blood specimen / Unknown 05/09/2025 8:37 PM EDT 05/09/2025 8:39 PM EDT Diane Guzman MD LAB POINT OF CARE T EST DOCKED DEVICE UNSOLICITED RESULTS Final Result Performing Organization Address City/[facility]/ZIP Co de Phone Number [facility] [address] [place] [address] * Magnesium (05/09/2025 5:54 PM EDT) Magnesium, Plasma 1.9 1.9 - 2.4 mg/dL 05/09/2025 6:56 PM EDT [facility] Blood Venous blood specimen / Unknown Venipuncture / Unknown 05/09/2025 5:54 PM EDT 05/09/2025 6:25 PM EDT us Selin Lee MD LAB BLOOD ORDERABLES Final Re sult [facility] [address] [place] [address] * (ABNORMAL) Basic metabolic panel (05/09/2025 5:54 PM EDT) Glucose, Plasma 416(H) 74 - 99 mg/dL 05/09/2025 6:56 PM EDT [facility] BUN, Plasma 17 7 - 21 mg/dL 05/09/2025 6:56 PM EDT [facility] Creatinine, Plasma 0.81 0.70 - 1.20 mg/dL 05/09/2025 6:56 PM EDT [facility] BUN/Creatinine Ratio 21 05/09/2025 6:56 PM EDT [facility] Sodium, Plasma 130(L) 136 - 145 mmol/L 05/09/2025 6:56 PM EDT [facility] Potassium, Plasma 3.1(L) 3.6 - 4.9 mmol/L 05/09/2025 6:56 PM EDT [facility] Chloride, Plasma 84(L) 97 - 107 mmol/L 05/09/2025 6:56 PM EDT [facility] CO2, Plasma 35(H) 22 - 29 mmol/L 05/09/2025 6:56 PM EDT [facility] Anion Gap 11 6 - 16 mmol/L 05/09/2025 6:56 PM EDT [facility] Total Calcium, Plasma 9.1 8.9 - 10.2 mg/dL 05/09/2025 6:56 PM EDT [facility] eGFRcr 109.4 mL/min/1.7 3m*2 05/09/2025 6:56 PM EDT [facility] Comment:Reported eGFRcr in m L/min/1.73m2 is based the CKD-EPI 2020 equation that does not use a race coefficient. Blood Venous blood specimen / Unknown Venipuncture / Unknown 05/09/2025 5:54 PM EDT 05/09/2025 6:25 PM EDT us Selin Lee MD LAB BLOOD ORDERABLES Final Re sult Performing Organization Address City/[facility]/ZIP Co de Phone Number [facility] [address] [place] [address] * (ABNORMAL) POCT glucose meter (05/09/2025 5:17 PM EDT) [facility] POCT Glucose 398(H) 74 - 99 mg/dL [...] Comment 05/09/2025 5:20 PM EDT [facility] Netbackup Engineer ID Char Hinojosa 05/09/2025 5:20 PM EDT [facility]ARE [facility] Device ID [id number] 05/09/2025 5:20 PM EDT [facility] Specimen Type POC Capillary 05/09/2025 5:20 PM EDT [facility] Blood Capillary blood specimen / Unknown 05/09/2025 5:17 PM EDT 05/09/2025 5:20 PM EDT us Diane Guzman MD LAB POINT OF CARE T EST DOCKED DEVICE UNSOLICITED RESULTS Final Result Performing Organization Address City/[facility]/ZIP Co de Phone Number HEALTHCARE LAB [address] [place] [address] * ECG Adult (05/09/2025 12:34 PM EDT) EKG DIAGNOSIS CLASS Abnormal MUSE ECG Ventricular Rate 75 BPM MUSE ECG Atrial Rate 75 BPM MUSE ECG MI Interval 176 ms MUSE ECG QRSD Interval 164 ms MUSE ECG QT Interval 454 ms MUSE ECG QTC Interval 506 ms MUSE ECG P [place] 70 degrees MUSE ECG R [place] -38 degrees MUSE ECG T Wave [place] 2 degrees MUSE ECG Diagnosis Normal sinus [...] 05/09/2025 12:27 PM EDT [facility] Net[facility] Engineer ID Dunia Montgomery 05/09/2025 12:27 PM EDT [facility] LAB Device ID [id number] 05/09/2025 12:27 PM EDT [facility] Specimen Type POC Capillary 05/09/2025 12:27 PM EDT [facility] Blood Capillary blood specimen / Unknown 05/09/2025 12:25 PM EDT 05/09/2025 12:27 PM EDT us Diane Guzman MD LAB POINT OF CARE T EST DOCKED DEVICE UNSOLICITED RESULTS Final Result [facility] [address] [place] [address] * (ABNORMAL) POCT glucose meter (05/09/2025 7:52 AM EDT) Pathologist [facility] POCT Glucose 306(H) 74 - 99 mg/dL [...] for testing. Comment 05/09/2025 7:54 AM EDT [facility] Netbackup Engineer ID Char Hinojosa 05/09/2025 7:54 AM EDT [facility] Device ID [id number] 05/09/2025 7:54 AM EDT [facility] Specimen Type POC Capillary 05/09/2025 7:54 AM EDT [facility] Blood Capillary blood specimen / Unknown 05/09/2025 7:52 AM EDT 05/09/2025 7:54 AM EDT Diane Guzman MD LAB POINT OF CARE T EST DOCKED DEVICE UNSOLICITED RESULTS Final Result [facility] [address] [place] [address] * (ABNORMAL) POCT glucose meter (05/08/2025 11:54 PM EDT) [facility] POCT Glucose 273(H) 74 - 99 mg/dL [...] 05/08/2025 11:56 PM EDT [facility] Net[employer] Engineer ID Kaylin Barron 05/08/2025 11:56 PM EDT HEALTHCARE LAB Device ID [id number] 05/08/2025 11:56 PM EDT [facility] Specimen Type POC Capillary 05/08/2025 11:56 PM EDT [facility] Blood Capillary blood specimen / Unknown 05/08/2025 11:54 PM EDT 05/08/2025 11:56 PM EDT Diane Guzman MD LAB POINT OF CARE T EST DOCKED DEVICE UNSOLICITED RESULTS Final Result Performing Organization Address City/[facility] Co de Phone Number [facility] [address] [place] [address] * (ABNORMAL) POCT glucose meter (05/08/2025 7:33 PM EDT) [facility] Signature POCT Glucose 310(H) 74 - 99 mg/dL [...] Comment 05/08/2025 7:35 PM EDT [facility] Netbackup Engineer ID Kaylin Barron 05/08/2025 7:35 PM EDT [facility]ALTH[facility]ARE LAB Device ID [id number] 05/08/2025 7:35 PM EDT [facility] Specimen Type POC Capillary 05/08/2025 7:35 PM EDT [facility] Blood Capillary blood specimen / Unknown 05/08/2025 7:33 PM EDT 05/08/2025 7:35 PM EDT Diane Guzman MD LAB POINT OF CARE T EST DOCKED DEVICE UNSOLICITED RESULTS Final Result Performing Organization Address City/[facility]/ZIP Co de Phone Number [facility] [address] [place] [address] * (ABNORMAL) POCT glucose meter (05/08/2025 5:00 PM EDT) [facility] POCT Glucose 347(H) 74 - 99 mg/dL [...] 05/08/2025 5:02 PM EDT [facility] Net[facility] Engineer ID Char Hinojosa 05/08/2025 5:02 PM EDT [facility]ALTH[facility]ARE LAB Device ID [id number] 05/08/2025 5:02 PM EDT [facility] Specimen Type POC Capillary 05/08/2025 5:02 PM EDT [facility] Blood Capillary blood specimen / Unknown 05/08/2025 5:00 PM EDT 05/08/2025 5:02 PM EDT Diane Guzman MD LAB POINT OF CARE T EST DOCKED DEVICE UNSOLICITED RESULTS Final Result Performing Organization Address City/State/[facility] Co de Phone Number [facility]ARE [facility] [address] [place] [address] * (ABNORMAL) POCT glucose meter (05/08/2025 11:42 AM EDT) [facility] POCT Glucose 298(H) 74 - 99 mg/dL [...] 05/08/2025 11:44 AM EDT [facility] Net[facility] Engineer ID Char Hinojosa 05/08/2025 11:44 AM EDT [facility] LAB Device ID [id number] 05/08/2025 11:44 AM EDT [facility] Specimen Type POC Capillary 05/08/2025 11:44 AM EDT [facility] Blood Capillary blood specimen / Unknown 05/08/2025 11:42 AM EDT 05/08/2025 11:44 AM EDT Diane Guzman MD LAB POINT OF CARE T EST DOCKED DEVICE UNSOLICITED RESULTS Final Result Performing Organization Address City/[facility] Co de Phone Number [facility] [address] [place] [address] * (ABNORMAL) POCT glucose meter (05/08/2025 8:05 [...] for testing. Comment 05/08/2025 8:07 AM EDT [facility] Netbackup Engineer ID Char Hinojosa 05/08/2025 8:07 AM EDT HEALTHCARE LAB Device ID [id number] 05/08/2025 8:07 AM EDT [facility] Specimen Type POC Capillary 05/08/2025 8:07 AM EDT [facility] Blood Capillary blood specimen / Unknown 05/08/2025 8:05 AM EDT 05/08/2025 8:07 AM EDT Diane Guzman MD LAB POINT OF CARE T EST DOCKED DEVICE UNSOLICITED RESULTS Final Result Performing Organization Address City/[facility]/ZIP Co de Phone Number [facility] [address] [place] [address] * (ABNORMAL) POCT glucose meter (05/08/2025 3:56 [...] Comment 05/08/2025 3:58 AM EDT [facility] Netbackup Engineer ID Stella Coleman 05/08/20 3:58 AM EDT [facility] Device ID [id number] 05/08/2025 3:58 AM EDT [facility] Specimen Type POC Capillary 05/08/2025 3:58 AM EDT [facility] Blood Capillary blood specimen / Unknown 05/08/2025 3:56 AM EDT 05/08/2025 3:58 AM EDT Diane Guzman MD LAB POINT OF CARE T EST DOCKED DEVICE UNSOLICITED RESULTS Final Result Performing Organization Address City/State/[facility] Co de Phone Number [facility] [address] [place] [address] * (ABNORMAL) POCT glucose meter (05/07/2025 8:14 PM EDT) [facility] POCT Glucose 392(H) 74 - 99 mg/dL 05/07/2025 8:15 PM EDT [facility] Comment:Accuracy of a [...] Comment 05/07/2025 8:15 PM EDT [facility] Netbackup Engineer ID Fela Coelho 05/07/2025 8:15 PM EDT [facility] LAB Device ID [id number] 05/07/2025 8:15 PM EDT [facility] Specimen Type POC Capillary 05/07/2025 8:15 PM EDT [facility] Blood Capillary blood specimen / Unknown 05/07/2025 8:14 PM EDT 05/07/2025 8:15 PM EDT Diane Guzman MD LAB POINT OF CARE T EST DOCKED DEVICE UNSOLICITED RESULTS Final Result [facility] [address] [place] [address] * (ABNORMAL) POCT glucose meter (05/07/2025 5:10 PM EDT) [facility] POCT Glucose 411(H) 74 - 99 mg/dL [...] Comment 05/07/2025 5:13 PM EDT [facility] Netbackup Engineer ID Priyanka Negrete 05/07/20 5:13 PM EDT [facility]ALTH[facility]ARE LAB Device ID [id number] 05/07/2025 5:13 PM EDT [facility] Specimen Type POC Capillary 05/07/2025 5:13 PM EDT [facility] Blood Capillary blood specimen / Unknown 05/07/2025 5:10 PM EDT 05/07/2025 5:13 PM EDT Result [facility] Diane Guzman MD LAB POINT OF CARE T EST DOCKED DEVICE UNSOLICITED RESULTS Final Result Performing Organization Address City/[facility]/ZIP Co de Phone Number [facility] [address] [place] [address] * (ABNORMAL) POCT glucose meter (05/07/2025 12:04 PM EDT) [facility] POCT Glucose 350(H) 74 - 99 mg/dL [...] 05/07/2025 12:10 PM EDT [facility] Netbackup Engineer ID Priyanka Negrete 05/07/20 12:10 PM EDT [facility]ALTH[facility]ARE LAB Device ID [id number] 05/07/2025 12:10 PM EDT [facility] Specimen Type POC Capillary 05/07/2025 12:10 PM EDT [facility] Blood Capillary blood specimen / Unknown 05/07/2025 12:04 PM EDT 05/07/2025 12:10 PM EDT Diane Guzman MD LAB POINT OF CARE T EST DOCKED DEVICE UNSOLICITED RESULTS Final Result Performing Organization Address City/[facility] Co de Phone Number [facility] [address] [place] [address] * (ABNORMAL) POCT glucose meter (05/07/2025 7:41 AM EDT) [facility] POCT Glucose 356(H) 74 - 99 mg/dL [...] Comment 05/07/2025 7:44 AM EDT [facility] Netbackup Engineer ID Priyanka Negrete 05/07/20 7:44 AM EDT HEALTHCARE LAB Device ID [id number] 05/07/2025 7:44 AM EDT [facility] Specimen Type POC Capillary 05/07/2025 7:44 AM EDT [facility] Blood Capillary blood specimen / Unknown 05/07/2025 7:41 AM EDT 05/07/2025 7:44 AM EDT Diane Guzman MD LAB POINT OF CARE T EST DOCKED DEVICE UNSOLICITED RESULTS Final Result Performing Organization Address City/[facility]/ZIP Co de Phone Number [facility] [address] [place] [address] * (ABNORMAL) POCT glucose meter (05/07/2025 3:41 AM EDT) [facility] POCT Glucose 407(H) 74 - 99 mg/dL [...] Comment 05/07/2025 3:43 AM EDT [facility] Netbackup Engineer ID YesseniaWon 05/07/2025 3:43 AM EDT HEALTHCARE LAB Device ID [id number] 05/07/2025 3:43 AM EDT [facility]ARE [facility] Specimen Type POC Capillary 05/07/2025 3:43 AM EDT [facility] Blood Capillary blood specimen / Unknown 05/07/2025 3:41 AM EDT 05/07/2025 3:43 AM EDT Diane Guzman MD LAB POINT OF CARE T EST DOCKED DEVICE UNSOLICITED RESULTS Final Result Performing Organization Address City/State/[facility] Co de Phone Number [facility]ARE [facility] [address] [place] [address] * (ABNORMAL) POCT glucose meter (05/06/2025 8:01 PM EDT) [facility] POCT Glucose 324(H) 74 - 99 mg/dL [...] 05/06/2025 8:02 PM EDT [facility] Netbackup Engineer ID YesseniaWon 05/06/2025 8:02 PM EDT HEALTH[facility]ARE LAB Device ID [id number] 05/06/2025 8:02 PM EDT [facility] Specimen Type POC Capillary 05/06/2025 8:02 PM EDT [facility] Blood Capillary blood specimen / Unknown 05/06/2025 8:01 PM EDT 05/06/2025 8:02 PM EDT Diane Guzman MD LAB POINT OF CARE T EST DOCKED DEVICE UNSOLICITED RESULTS Final Result Performing Organization Address City/[facility] Co de Phone Number [facility] [address] [place] [address] * (ABNORMAL) POCT glucose meter (05/06/2025 4:40 PM EDT) [facility] POCT Glucose 212(H) 74 - 99 mg/dL [...] Comment 05/06/2025 4:46 PM EDT [facility] Netbackup Engineer ID Sherrell Navarro 05/06/2025 4:46 PM EDT HEALTH[facility]ARE LAB Device ID [id number] 05/06/2025 4:46 PM EDT [facility] Specimen Type POC Capillary 05/06/2025 4:46 PM EDT [facility] Blood Capillary blood specimen / Unknown 05/06/2025 4:40 PM EDT 05/06/2025 4:46 PM EDT Diane Guzman MD LAB POINT OF CARE T EST DOCKED DEVICE UNSOLICITED RESULTS Final Result Performing Organization Address City/[facility]/ZIP Co de Phone Number [facility]ARE [facility] [address] [place] [address] * PSA, diagnostic (05/06/2025 12:27 PM EDT) [facility] PSA, Diagnostic, Serum 0.03 0.00 - 2.50 ng/mL 05/06/2025 1:10 PM EDT [facility] Blood Venous blood specimen / Unknown Venipuncture / Unknown 05/06/2025 12:27 PM EDT 05/06/2025 12:33 PM EDT Narrative [facility] - 05/06/2025 1:10 PM EDT Performed by Bella electrochemiluminescent immunoassay which is standardized against the PSA Noble Reference Standard (WHO 96/670). Results obtained with different test methods or kits cannot be used interchangeably. Diane Guzman MD LAB BLOOD ORDERABLES Final Result Performing Organization Address City/[facility]/ZIP Co de Phone Number [facility] [address] [place] [address] * (ABNORMAL) POCT glucose meter (05/06/2025 11:28 [...] Comment 05/06/2025 11:30 AM EDT [facility] Netbackup Engineer ID Sherrell Navarro 05/06/2025 11:30 AM EDT HEALTHCARE LAB Device ID [id number] 05/06/2025 11:30 AM EDT [facility]ALTH[facility]ARE [facility] Specimen Type POC Capillary 05/06/2025 11:30 AM EDT [facility] Blood Capillary blood specimen / Unknown 05/06/2025 11:28 AM EDT 05/06/2025 11:30 AM EDT Diane Guzman MD LAB POINT OF CARE T EST DOCKED DEVICE UNSOLICITED RESULTS Final Result [facility] [address] [place] [address] * (ABNORMAL) POCT glucose meter (05/06/2025 8:13 [...] Comment 05/06/2025 8:23 AM EDT [facility] Netbackup Engineer ID Sherrell Navarro 05/06/2025 8:23 AM EDT HEALTH[facility]ARE LAB Device ID [id number] 05/06/2025 8:23 AM EDT [facility] Specimen Type POC Capillary 05/06/2025 8:23 AM EDT [facility] Blood Capillary blood specimen / Unknown 05/06/2025 8:13 AM EDT 05/06/2025 8:23 AM EDT Diane Guzman MD LAB POINT OF CARE T EST DOCKED DEVICE UNSOLICITED RESULTS Final Result Performing Organization Address City/State/[facility] Co de Phone Number [facility] [address] [place] [address] * (ABNORMAL) POCT glucose meter (05/06/2025 3:09 AM EDT) [facility] Signature POCT Glucose 364(H) 74 - [...] 05/06/2025 3:11 AM EDT [facility] Netbackup Engineer ID Won Casas 05/06/2025 3:11 AM EDT HEALTH[facility]ARE LAB Device ID [id number] 05/06/2025 3:11 AM EDT [facility] Specimen Type POC Capillary 05/06/2025 3:11 AM EDT [facility] Blood Capillary blood specimen / Unknown 05/06/2025 3:09 AM EDT 05/06/2025 3:11 AM EDT Diane Guzman MD LAB POINT OF CARE T EST DOCKED DEVICE UNSOLICITED RESULTS Final Result Performing Organization Address City/[facility] Co de Phone Number [facility] [address] [place] [address] * (ABNORMAL) POCT glucose meter (05/05/2025 8:19 PM EDT) Pathologist [facility] POCT Glucose 324(H) 74 - 99 mg/dL [...] Comment 05/05/2025 8:20 PM EDT [facility] Netbackup Engineer ID Won Casas 05/05/2025 8:20 PM EDT HEALTH[facility]ARE LAB Device ID [id number] 05/05/2025 8:20 PM EDT [facility] Specimen Type POC Capillary 05/05/2025 8:20 PM EDT [facility] Blood Capillary blood specimen / Unknown 05/05/2025 8:19 PM EDT 05/05/2025 8:20 PM EDT Diane Guzman MD LAB POINT OF CARE T EST DOCKED DEVICE UNSOLICITED RESULTS Final Result Performing Organization Address City/[facility] Co de Phone Number [facility] [address] [place] [address] * (ABNORMAL) POCT glucose meter (05/05/2025 5:09 PM EDT) Pathologist [facility] POCT Glucose 371(H) 74 - 99 mg/dL [...] 05/05/2025 5:14 PM EDT [facility] Netbackup Engineer ID Sherrell Navarro 05/05/2025 5:14 PM EDT [facility] Device ID [id number] 05/05/2025 5:14 PM EDT [facility] Specimen Type POC Capillary 05/05/2025 5:14 PM EDT [facility] Blood Capillary blood specimen / Unknown 05/05/2025 5:09 PM EDT 05/05/2025 5:14 PM EDT us Diane Guzman MD LAB POINT OF CARE T EST DOCKED DEVICE UNSOLICITED RESULTS Final Result Performing Organization Address [facility] de Phone Number [facility]ARE [facility] [address] [place] [address] * (ABNORMAL) POCT glucose meter (05/05/2025 11:29 [...] Comment 05/05/2025 11:32 AM EDT [facility] Netbackup Engineer ID Sherrell Navarro 05/05/2025 11:32 AM EDT HEALTH[facility]ARE LAB Device ID [id number] 05/05/2025 11:32 AM EDT [facility] Specimen Type POC Capillary 05/05/2025 11:32 AM EDT [facility] Blood Capillary blood specimen / Unknown 05/05/2025 11:29 AM EDT 05/05/2025 11:32 AM EDT us Diane Guzman MD LAB POINT OF CARE T EST DOCKED DEVICE UNSOLICITED RESULTS Final Result Performing Organization Address City/[facility] Co de Phone Number [facility] [address] [place] [address] * (ABNORMAL) POCT glucose meter (05/05/2025 7:55 AM EDT) [facility] POCT Glucose 290(H) 74 - 99 mg/dL [...] Comment 05/05/2025 7:57 AM EDT [facility] Netbackup Engineer ID Sherrell Navarro 05/05/2025 7:57 AM EDT HEALTHCARE LAB Device ID [id number] 05/05/2025 7:57 AM EDT [facility]ALTH[facility] Specimen Type POC Capillary 05/05/2025 7:57 AM EDT [facility] Blood Capillary blood specimen / Unknown 05/05/2025 7:55 AM EDT 05/05/2025 7:57 AM EDT Diane Guzman MD LAB POINT OF CARE T EST DOCKED DEVICE UNSOLICITED RESULTS Final Result [facility] [address] [place] [address] * (ABNORMAL) POCT glucose meter (05/04/2025 7:35 PM EDT) [facility] POCT Glucose 236(H) 74 - 99 mg/dL [...] Comment 05/04/2025 7:37 PM EDT [facility] Netbackup Engineer ID Kaylin Barron 05/04/2025 7:37 PM EDT [facility] Device ID [id number] 05/04/2025 7:37 PM EDT [facility]ALTH[facility] Specimen Type POC Capillary 05/04/2025 7:37 PM EDT [facility] Blood Capillary blood specimen / Unknown 05/04/2025 7:35 PM EDT 05/04/2025 7:37 PM EDT Diane Guzman MD LAB POINT OF CARE T EST DOCKED DEVICE UNSOLICITED RESULTS Final Result Performing Organization Address City/[facility]/ZIP Co de Phone Number [facility] [address] [place] [address] * (ABNORMAL) POCT glucose meter (05/04/2025 4:51 [...] Comment 05/04/2025 4:53 PM EDT [facility] Netbackup Engineer ID Araceli Doran 025 4:53 PM EDT HEALTHCARE LAB Device ID [id number] 05/04/2025 4:53 PM EDT [facility]ALTH[facility]ARE [facility] Specimen Type POC Capillary 05/04/2025 4:53 PM EDT [facility] Blood Capillary blood specimen / Unknown 05/04/2025 4:51 PM EDT 05/04/2025 4:53 PM EDT Diane Guzman MD LAB POINT OF CARE T EST DOCKED DEVICE UNSOLICITED RESULTS Final Result [facility] [address] [place] [address] * (ABNORMAL) POCT glucose meter (05/04/2025 11:51 [...] Comment 05/04/2025 11:56 AM EDT [facility] Netbackup Engineer ID Araceli Doran 025 11:56 AM EDT HEALTH[facility]ARE LAB Device ID [id number] 05/04/2025 11:56 AM EDT [facility]ALTH[facility] Specimen Type POC Capillary 05/04/2025 11:56 AM EDT [facility] Blood Capillary blood specimen / Unknown 05/04/2025 11:51 AM EDT 05/04/2025 11:56 AM EDT Diane Guzman MD LAB POINT OF CARE T EST DOCKED DEVICE UNSOLICITED RESULTS Final Result Performing Organization Address City/State/[facility] Co de Phone Number [facility] [address] [place] [address] * (ABNORMAL) POCT glucose meter (05/04/2025 8:09 AM EDT) [facility] Signature POCT Glucose 259(H) 74 - 99 mg/dL [...] Comment 05/04/2025 8:17 AM EDT [facility] Netbackup Engineer ID Araceli Doran 025 8:17 AM EDT HEALTHCARE LAB Device ID [id number] 05/04/2025 8:17 AM EDT [facility]ALTH[facility] Specimen Type POC Capillary 05/04/2025 8:17 AM EDT [facility] Blood Capillary blood specimen / Unknown 05/04/2025 8:09 AM EDT 05/04/2025 8:17 AM EDT Diane Guzman MD LAB POINT OF CARE T EST DOCKED DEVICE UNSOLICITED RESULTS Final Result Performing Organization Address [facility] de Phone Number [facility] [address] [place] [address] * (ABNORMAL) POCT glucose meter (05/04/2025 4:44 AM EDT) Pathologist [facility] POCT Glucose 335(H) 74 - 99 mg/dL [...] Comment 05/04/2025 4:46 AM EDT [facility] Netbackup Engineer ID Kaylin Barron 05/04/2025 4:46 AM EDT HEALTHCARE LAB Device ID [id number] 05/04/2025 4:46 AM EDT [facility] Specimen Type POC Capillary 05/04/2025 4:46 AM EDT [facility] Blood Capillary blood specimen / Unknown 05/04/2025 4:44 AM EDT 05/04/2025 4:46 AM EDT Diane Guzman MD LAB POINT OF CARE T EST DOCKED DEVICE UNSOLICITED RESULTS Final Result Performing Organization Address City/[facility] Co de Phone Number [facility] [address] [place] [address] * (ABNORMAL) POCT glucose meter (05/03/2025 7:27 PM EDT) Pathologist [facility] POCT Glucose 331(H) 74 - 99 mg/dL [...] Comment 05/03/2025 7:33 PM EDT [facility] Netbackup Engineer ID Kaylin Barron 05/03/2025 7:33 PM EDT HEALTH[facility]ARE LAB Device ID [id number] 05/03/2025 7:33 PM EDT [facility] Specimen Type POC Capillary 05/03/2025 7:33 PM EDT [facility] Blood Capillary blood specimen / Unknown 05/03/2025 7:27 PM EDT 05/03/2025 7:33 PM EDT us Diane Guzman MD LAB POINT OF CARE T EST DOCKED DEVICE UNSOLICITED RESULTS Final Result [facility] [address] [place] [address] * (ABNORMAL) Comprehensive metabolic panel (05/03/2025 6:22 PM EDT) Glucose, Plasma 290(H) 74 - 99 mg/dL 05/03/2025 7:13 PM EDT [facility] BUN, Plasma 14 7 - 21 mg/dL 05/03/2025 7:13 PM EDT [facility] Creatinine, Plasma 0.71 0.70 - 1.20 mg/dL 05/03/2025 7:13 PM EDT [facility] BUN/Creatinine Ratio 20 05/03/2025 7:13 PM EDT [facility] Sodium, Plasma 133(L) 136 - 145 mmol/L 05/03/2025 7:13 PM EDT [facility] Potassium, Plasma 3.6 3.6 - 4.9 mmol/L 05/03/2025 7:13 PM EDT [facility] Chloride, Plasma 87(L) 97 - 107 mmol/L 05/03/2025 7:13 PM EDT [facility] CO2, Plasma 37(H) 22 - 29 mmol/L 05/03/2025 7:13 PM EDT [facility] Anion Gap 9 6 - 16 mmol/L 05/03/2025 7:13 PM EDT [facility] Total Calcium, Plasma 9.4 8.9 - 10.2 mg/dL 05/03/2025 7:13 PM EDT [facility] Total Protein 8.0(H) 6.3 - 7.9 g/dL 05/03/2025 7:13 PM EDT [facility] Albumin, Plasma 3.6 3.5 - 5.2 g/dL 05/03/2025 7:13 PM EDT [facility] AST, Plasma 18 10 - 50 U/L 05/03/2025 7:13 PM EDT [facility] ALT, Plasma 12 10 - 50 U/L 05/03/2025 7:13 PM EDT [facility] Alkaline Phosphatase, Plasma 64 40 - 115 U/L 05/03/2025 7:13 PM EDT [facility] Total Bilirubin, Plasma 0.7 0.2 - 1.1 mg/dL 05/03/2025 7:13 PM EDT [facility] eGFRcr 113.9 mL/min/1.7 3m*2 05/03/2025 7:13 PM EDT [facility] Comment:Reported eGFRcr in m L/min/1.73m2 is based the CKD-EPI 2020 equation that does not use a race coefficient. Blood Venous blood specimen / Unknown Venipuncture / Unknown 05/03/2025 6:22 PM EDT 05/03/2025 6:38 PM EDT Diane Guzman MD LAB BLOOD ORDERABLES Final Result [facility] [address] [place] [address] * Creatine Kinase (CK), Total (05/03/2025 6:22 PM EDT) Creatine Kinase, Plasma 54 49 - 320 U/L 05/03/2025 7:13 PM EDT [facility] Blood Venous blood specimen / Unknown Venipuncture / Unknown 05/03/2025 6:22 PM EDT 05/03/2025 6:38 PM EDT us Diane Guzman MD LAB BLOOD ORDERABLES Final Result Performing Organization Address [facility]/ZIP Co de Phone Number [facility] [address] [place] [address] * (ABNORMAL) POCT glucose meter (05/03/2025 5:30 PM EDT) [facility] POCT Glucose 258(H) 74 - 99 mg/dL [...] Comment 05/03/2025 5:33 PM EDT [facility] Netbackup Engineer ID Dunia Montgomery 05/03/2025 5:33 PM EDT [facility]ALTH[facility]ARE LAB Device ID [id number] 05/03/2025 5:33 PM EDT [facility] Specimen Type POC Capillary 05/03/2025 5:33 PM EDT [facility] Blood Capillary blood specimen / Unknown 05/03/2025 5:30 PM EDT 05/03/2025 5:33 PM EDT Diane Guzman MD LAB POINT OF CARE T EST DOCKED DEVICE UNSOLICITED RESULTS Final Result Performing Organization Address [facility] Co de Phone Number [facility] [address] [place] [address] * (ABNORMAL) POCT glucose meter (05/03/2025 11:36 AM EDT) [facility] POCT Glucose 310(H) 74 - 99 mg/dL [...] Comment 05/03/2025 11:38 AM EDT [facility] Netbackup Engineer ID Kindra Cardoza 05/03/2025 11:38 AM EDT [facility]ALTH[facility]ARE LAB Device ID [id number] 05/03/2025 11:38 AM EDT [facility] Specimen Type POC Capillary 05/03/2025 11:38 AM EDT [facility] Blood Capillary blood specimen / Unknown 05/03/2025 11:36 AM EDT 05/03/2025 11:38 AM EDT Diane Guzman MD LAB POINT OF CARE T EST DOCKED DEVICE UNSOLICITED RESULTS Final Result Performing Organization Address City/[facility] Co de Phone [facility] [address] [place] [address] * (ABNORMAL) POCT glucose meter (05/03/2025 8:09 AM EDT) [facility] POCT Glucose 339(H) 74 - 99 mg/dL [...] Comment 05/03/2025 8:11 AM EDT [facility] Netbackup Engineer ID Dunia Montgomery 05/03/2025 8:11 AM EDT [facility] Device ID [id number] 05/03/2025 8:11 AM EDT [facility] Specimen Type POC Capillary 05/03/2025 8:11 AM EDT [facility] Blood Capillary blood specimen / Unknown 05/03/2025 8:09 AM EDT 05/03/2025 8:11 AM EDT Diane Guzman MD LAB POINT OF CARE T EST DOCKED DEVICE UNSOLICITED RESULTS Final Result Performing Organization Address City/[facility]/ZIP Co de Phone Number [facility] [address] [place] [address] * (ABNORMAL) POCT glucose meter (05/03/2025 3:37 AM EDT) [facility] POCT Glucose 372(H) 74 - 99 mg/dL [...] Comment 05/03/2025 3:40 AM EDT [facility] Netbackup Engineer ID Maribell Saeed 3:40 AM EDT [facility] Device ID [id number] 05/03/2025 3:40 AM EDT [facility] Specimen Type POC Capillary 05/03/2025 3:40 AM EDT [facility] Blood Capillary blood specimen / Unknown 05/03/2025 3:37 AM EDT 05/03/2025 3:40 AM EDT Diane Guzman MD LAB POINT OF CARE T EST DOCKED DEVICE UNSOLICITED RESULTS Final Result Performing Organization Address City/State/[facility] Co de Phone Number [facility] [address] [place], [place] [id number] * (ABNORMAL) CBC and Differential (05/03/2025 3:16 AM EDT) [facility] WBC Count 6.86 3.70 - 10.30 10*3/uL LAB HEMATOLOGY METHOD 05/03/2025 3:33 AM EDT [facility] RBC Count 3.82(L) 4.60 - 6.10 10*6/uL LAB HEMATOLOGY METHOD 05/03/2025 3:33 AM EDT [facility] HGB 8.9(L) 13.7 - 17.5 g/dL LAB HEMATOLOGY METHOD 05/03/2025 3:33 AM EDT [facility] HCT 29.2(L) 40.0 - 51.0 % LAB HEMATOLOGY METHOD 05/03/2025 3:33 AM EDT [facility] Platelet Count 202 155 - 369 10*3/uL LAB HEMATOLOGY METHOD 05/03/2025 3:33 AM EDT [facility] MCV 76(L) 79 - 98 fL LAB HEMATOLOGY METHOD 05/03/2025 3:33 AM EDT [facility] MCH 23.3(L) 26.0 - 32.0 pg LAB HEMATOLOGY METHOD 05/03/2025 3:33 AM EDT [facility] MCHC 30.5(L) 30.7 - 35.5 g/dL LAB HEMATOLOGY METHOD 05/03/2025 3:33 AM EDT [facility] RDW 18.8(H) 11.5 - 14.5 % LAB HEMATOLOGY METHOD 05/03/2025 3:33 AM EDT [facility] MPV 9.1 8.8 - 12.5 fL LAB HEMATOLOGY METHOD 05/03/2025 3:33 AM EDT [facility] nRBC 0.0 <=0.0 per 100 WBCs LAB HEMATOLOGY METHOD 05/03/2025 3:33 AM EDT [facility] Differential Type Automated LAB HEMATOLOGY METHOD 05/03/2025 3:33 AM EDT [facility] Neutrophils % 70 % LAB HEMATOLOGY METHOD 05/03/2025 3:33 AM EDT [facility] Lymphocytes % 15 % LAB HEMATOLOGY METHOD 05/03/2025 3:33 AM EDT [facility] Monocytes % 9 % LAB HEMATOLOGY METHOD 05/03/2025 3:33 AM EDT [facility] Eosinophils % 5 % LAB HEMATOLOGY METHOD 05/03/2025 3:33 AM EDT [facility] Basophils % 0 % LAB HEMATOLOGY METHOD 05/03/2025 3:33 AM EDT [facility] Immature Granulocytes % 1 % LAB HEMATOLOGY METHOD 05/03/2025 3:33 AM EDT [facility] Neutrophils Absolute 4.85 1.60 - 6.10 10*3/uL LAB HEMATOLOGY METHOD 05/03/2025 3:33 AM EDT [facility] Lymphocytes Absolute 1.03(L) 1.20 - 3.90 10*3/uL LAB HEMATOLOGY METHOD 05/03/2025 3:33 AM EDT [facility] Monocytes Absolute 0.59 0.30 - 0.90 10*3/uL LAB HEMATOLOGY METHOD 05/03/2025 3:33 AM EDT [facility] Eosinophils Absolute 0.32 0.00 - 0.50 10*3/uL LAB HEMATOLOGY METHOD 05/03/2025 3:33 AM EDT [facility] Basophils Absolute 0.03 0.00 - 0.10 10*3/uL LAB HEMATOLOGY METHOD 05/03/2025 3:33 AM EDT [facility] Immature Granulocytes Absolute 0.04 0.00 - 0.06 10*3/uL LAB HEMATOLOGY METHOD 05/03/2025 3:33 AM EDT [facility] Blood Venous blood specimen / Unknown Venipuncture / Unknown 05/03/2025 3:16 AM EDT 05/03/2025 3:25 AM EDT Narrative [facility] - 05/03/2025 3:33 AM EDT Therapeutic decision making should be based on absolute values, rather than percentages. us Marjorie Myers MD LAB BLOOD ORDERABLES Final Resul t [facility] [address] [place] [address] * (ABNORMAL) Basic Metabolic Panel, Plasma (05/03/2025 3:16 AM EDT) Glucose, Plasma 399(H) 74 - 99 mg/dL 05/03/2025 4:02 AM EDT [facility] BUN, Plasma 15 7 - 21 mg/dL 05/03/2025 4:02 AM EDT [facility] Creatinine, Plasma 0.78 0.70 - 1.20 mg/dL 05/03/2025 4:02 AM EDT [facility] BUN/Creatinine Ratio 19 05/03/2025 4:02 AM EDT [facility] Sodium, Plasma 136 136 - 145 mmol/L 05/03/2025 4:02 AM EDT [facility] Potassium, Plasma 3.6 3.6 - 4.9 mmol/L 05/03/2025 4:02 AM EDT [facility] Chloride, Plasma 90(L) 97 - 107 mmol/L 05/03/2025 4:02 AM EDT [facility] CO2, Plasma 37(H) 22 - 29 mmol/L 05/03/2025 4:02 AM EDT [facility] Anion Gap 9 6 - 16 mmol/L 05/03/2025 4:02 AM EDT [facility] Total Calcium, Plasma 9.0 8.9 - 10.2 mg/dL 05/03/2025 4:02 AM EDT [facility] eGFRcr 110.7 mL/min/1.7 3m*2 05/03/2025 4:02 AM EDT [facility] Comment:Reported eGFRcr in m L/min/1.73m2 is based the CKD-EPI 2020 equation that does not use a race coefficient. Blood Venous blood specimen / Unknown Venipuncture / Unknown 05/03/2025 3:16 AM EDT 05/03/2025 3:24 AM EDT us Marjorie Myers MD LAB BLOOD ORDERABLES Final Resul t Performing Organization Address City/[facility]/ZIP Co de Phone Number [facility] [address] [place] [address] * (ABNORMAL) Magnesium, Plasma (05/03/2025 3:16 AM EDT) Magnesium, Plasma 1.7(L) 1.9 - 2.4 mg/dL 05/03/2025 4:02 AM EDT [facility] Blood Venous blood specimen / Unknown Venipuncture / Unknown 05/03/2025 3:16 AM EDT 05/03/2025 3:24 AM EDT us Marjorie Myers MD LAB BLOOD ORDERABLES Final Resul t [facility] [address] [place] [address] * Phosphorus, Plasma (05/03/2025 3:16 AM EDT) Phosphorus, Plasma 3.6 2.5 - 4.5 mg/dL 05/03/2025 4:02 AM EDT [facility] Blood Venous blood specimen / Unknown Venipuncture / Unknown 05/03/2025 3:16 AM EDT 05/03/2025 3:24 AM EDT Marjorie Myers MD LAB BLOOD ORDERABLES Final Resul t Performing Organization Address City/[facility]/ZIP Co de Phone Number [facility] [address] [place] [address] * Hepatitis B Core Total Antibody IgG,IgM (05/03/2025 3:16 AM EDT) Hepatitis B Core Total Antibody IgG,IgM Negative Negative 05/03/2025 4:28 AM EDT [facility] Blood Venous blood specimen / Unknown Venipuncture / Unknown 05/03/2025 3:16 AM EDT 05/03/2025 3:24 AM EDT Diane Guzman MD LAB BLOOD ORDERABLES Final Result Performing Organization Address [facility] Co de Phone Number [facility] [address] [place] [address] * Hepatitis B Surface Antigen (05/03/2025 3:16 AM EDT) Hepatitis B Surf Antigen Negative Negative 05/03/2025 4:28 AM EDT [facility] Blood Venous blood specimen / Unknown Venipuncture / Unknown 05/03/2025 3:16 AM EDT 05/03/2025 3:24 AM EDT Diane Guzman MD LAB BLOOD ORDERABLES Final Result Performing Organization Address City/[facility] Co de Phone Number [facility] [address] [place] [address] * Hepatitis B Surface Antibody, Quantitative (05/03/2025 3:16 AM EDT) Hepatitis B Surface Antibody, Quantitative <8.00 NonReactiv e: <8, Grayzone: 8 - <12, Reactive: >= 12 mIU/mL 05/03/2025 4:28 AM EDT [facility] Comment: Nonreactive. Individual is considered not immune to HBV infection. Blood Venous blood specimen / Unknown Venipuncture / Unknown 05/03/2025 3:16 AM EDT 05/03/2025 3:24 AM EDT us Diane Guzman MD LAB BLOOD ORDERABLES Final Result Performing Organization Address City/[facility]/ZIP Co de Phone Number [address] [address] * Hepatitis A Antibody IgG (05/03/2025 3:16 AM EDT) [facility] Hepatitis A Antibody IgG Negative Negative 05/03/2025 4:28 AM EDT [facility] Blood Venous blood specimen / Unknown Venipuncture / Unknown 05/03/2025 3:16 AM EDT 05/03/2025 3:24 AM EDT us Diane Guzman MD LAB BLOOD ORDERABLES Final Result Performing Organization Address [facility] [place] [address] * (ABNORMAL) POCT glucose meter (05/02/2025 8:48 PM EDT) [facility] POCT Glucose 325(H) 74 - 99 mg/dL [...] 05/02/2025 8:50 PM EDT [facility] Netbackup Engineer ID Maribell Saeed 8:50 PM EDT [facility] Device ID [id number] 05/02/2025 8:50 PM EDT [facility] Specimen Type POC Capillary 05/02/2025 8:50 PM EDT [facility] Blood Capillary blood specimen / Unknown 05/02/2025 8:48 PM EDT 05/02/2025 8:50 PM EDT Result Shannon Guzman MD LAB POINT OF CARE T EST DOCKED DEVICE UNSOLICITED RESULTS Final Result Performing Organization Address City/State/[facility] Co de Phone Number [facility] [address] [place] [address] * (ABNORMAL) POCT glucose meter (05/02/2025 4:30 PM EDT) [facility] POCT Glucose 250(H) 74 - 99 mg/dL [...] Comment 05/02/2025 4:32 PM EDT [facility] Netbackup Engineer ID EfraínSebastián 4:32 PM EDT [facility] Device ID [id number] 05/02/2025 4:32 PM EDT [facility] Specimen Type POC Capillary 05/02/2025 4:32 PM EDT [facility] Blood Capillary blood specimen / Unknown 05/02/2025 4:30 PM EDT 05/02/2025 4:32 PM EDT Diane Guzman MD LAB POINT OF CARE T EST DOCKED DEVICE UNSOLICITED RESULTS Final Result Performing Organization Address City/[facility] Co de Phone Number [facility] [address] [place] [address] * Nasopharyngeal Respiratory Panel (05/02/2025 1:05 PM EDT) [facility] Nasopharyngeal Respiratory PCR Interpretation Not Detected for all analytes Not Detected for all analytes 05/02/2025 3:14 PM EDT [facility] Swab Nasopharyngeal structure / Unknown Non-blood Collection / Unknown 05/02/2025 1:05 PM EDT 05/02/2025 1:12 PM EDT Narrative [facility] - 05/02/2025 3:14 PM [...] Respiratory PCR Panel is performed using the Smart Furniture[employer] instrument. This test is FDA approved for use with Nasopharyngeal swabs only. This test is used for clinical purposes. It should not be regarded as investigational or for research. The [facility] Clinical Microbiology Laboratory is certified under the Clinical Laboratory Improvement Amendments of 1988 (CLIA-88) as qualified to perform high complexity clinical laboratory testing. Diane Guzman MD LAB MICROBIOLOGY - GENERAL ORDERABLES Final Result [facility] [address] [place] [address] * (ABNORMAL) POCT glucose meter (05/02/2025 12:08 PM EDT) Pathologist [facility] POCT Glucose 278(H) 74 - 99 mg/dL [...] Comment 05/02/2025 12:10 PM EDT [facility] Netbackup Engineer ID EfraínSebastián 12:10 PM EDT [facility] Device ID [id number] 05/02/2025 12:10 PM EDT [facility] Specimen Type POC Capillary 05/02/2025 12:10 PM EDT [facility] Blood Capillary blood specimen / Unknown 05/02/2025 12:08 PM EDT 05/02/2025 12:10 PM EDT Diane Guzman MD LAB POINT OF CARE T EST DOCKED DEVICE UNSOLICITED RESULTS Final Result Performing Organization Address [facility] Co de Phone Number [facility] [address] [place] [address] * (ABNORMAL) POCT glucose meter (05/02/2025 8:11 AM EDT) [facility] POCT Glucose 283(H) 74 - 99 mg/dL [...] Comment 05/02/2025 8:12 AM EDT [facility] Netbackup Engineer ID Sebastián Kenny 8:12 AM EDT [facility] Device ID [id number] 05/02/2025 8:12 AM EDT [facility] Specimen Type POC Capillary 05/02/2025 8:12 AM EDT [facility] Blood Capillary blood specimen / Unknown 05/02/2025 8:11 AM EDT 05/02/2025 8:12 AM EDT Diane Guzman MD LAB POINT OF CARE T EST DOCKED DEVICE UNSOLICITED RESULTS Final Result Performing Organization Address [facility] de Phone Number [facility] [address] [place] [address] * (ABNORMAL) POCT glucose meter (05/02/2025 4:01 AM EDT) [facility] POCT Glucose 320(H) 74 - 99 mg/dL [...] 05/02/2025 4:03 AM EDT [facility] Netbackup Engineer ID Stella Coleman 05/02/20 4:03 AM EDT [facility] Device ID [id number] 05/02/2025 4:03 AM EDT [facility] Specimen Type POC Capillary 05/02/2025 4:03 AM EDT [facility] Blood Capillary blood specimen / Unknown 05/02/2025 4:01 AM EDT 05/02/2025 4:03 AM EDT us Marjorie Myers MD LAB POINT OF CARE TE ST DOCKED DEVICE UNSOLICITED RESULTS Final Result [facility] [address] [place] [address] * (ABNORMAL) CBC and Differential (05/02/2025 3:10 AM EDT) WBC Count 7.39 3.70 - 10.30 10*3/uL LAB HEMATOLOGY METHOD 05/02/2025 3:23 AM EDT [facility] RBC Count 3.88(L) 4.60 - 6.10 10*6/uL LAB HEMATOLOGY METHOD 05/02/2025 3:23 AM EDT [facility] HGB 8.8(L) 13.7 - 17.5 g/dL LAB HEMATOLOGY METHOD 05/02/2025 3:23 AM EDT [facility] HCT 29.3(L) 40.0 - 51.0 % LAB HEMATOLOGY METHOD 05/02/2025 3:23 AM EDT [facility] Platelet Count 205 155 - 369 10*3/uL LAB HEMATOLOGY METHOD 05/02/2025 3:23 AM EDT [facility] MCV 76(L) 79 - 98 fL LAB HEMATOLOGY METHOD 05/02/2025 3:23 AM EDT [facility] MCH 22.7(L) 26.0 - 32.0 pg LAB HEMATOLOGY METHOD 05/02/2025 3:23 AM EDT [facility] MCHC 30.0(L) 30.7 - 35.5 g/dL LAB HEMATOLOGY METHOD 05/02/2025 3:23 AM EDT [facility] RDW 19.1(H) 11.5 - 14.5 % LAB HEMATOLOGY METHOD 05/02/2025 3:23 AM EDT [facility] MPV 8.5(L) 8.8 - 12.5 fL LAB HEMATOLOGY METHOD 05/02/2025 3:23 AM EDT [facility] nRBC 0.0 <=0.0 per 100 WBCs LAB HEMATOLOGY METHOD 05/02/2025 3:23 AM EDT [facility] Differential Type Automated LAB HEMATOLOGY METHOD 05/02/2025 3:23 AM EDT [facility] Neutrophils % 74 % LAB HEMATOLOGY METHOD 05/02/2025 3:23 AM EDT [facility] Lymphocytes % 13 % LAB HEMATOLOGY METHOD 05/02/2025 3:23 AM EDT [facility] Monocytes % 8 % LAB HEMATOLOGY METHOD 05/02/2025 3:23 AM EDT [facility] Eosinophils % 4 % LAB HEMATOLOGY METHOD 05/02/2025 3:23 AM EDT [facility] Basophils % 0 % LAB HEMATOLOGY METHOD 05/02/2025 3:23 AM EDT [facility] Immature Granulocytes % 1 % LAB HEMATOLOGY METHOD 05/02/2025 3:23 AM EDT [facility] Neutrophils Absolute 5.45 1.60 - 6.10 10*3/uL LAB HEMATOLOGY METHOD 05/02/2025 3:23 AM EDT [facility] Lymphocytes Absolute 0.96(L) 1.20 - 3.90 10*3/uL LAB HEMATOLOGY METHOD 05/02/2025 3:23 AM EDT [facility] Monocytes Absolute 0.62 0.30 - 0.90 10*3/uL LAB HEMATOLOGY METHOD 05/02/2025 3:23 AM EDT [facility] Eosinophils Absolute 0.30 0.00 - 0.50 10*3/uL LAB HEMATOLOGY METHOD 05/02/2025 3:23 AM EDT [facility] Basophils Absolute 0.01 0.00 - 0.10 10*3/uL LAB HEMATOLOGY METHOD 05/02/2025 3:23 AM EDT [facility] Immature Granulocytes Absolute 0.05 0.00 - 0.06 10*3/uL LAB HEMATOLOGY METHOD 05/02/2025 3:23 AM EDT [facility] Blood Venous blood specimen / Unknown Venipuncture / Unknown 05/02/2025 3:10 AM EDT 05/02/2025 3:14 AM EDT Narrative [facility] - 05/02/2025 3:23 AM EDT Therapeutic decision making should be based on absolute values, rather than percentages. us Marjorie Myers MD LAB BLOOD ORDERABLES Final Resul t [facility] [address] [place] [address] * (ABNORMAL) Basic Metabolic Panel, Plasma (05/02/2025 3:10 AM EDT) Glucose, Plasma 358(H) 74 - 99 mg/dL 05/02/2025 3:45 AM EDT [facility] BUN, Plasma 12 7 - 21 mg/dL 05/02/2025 3:45 AM EDT [facility] Creatinine, Plasma 0.73 0.70 - 1.20 mg/dL 05/02/2025 3:45 AM EDT [facility] BUN/Creatinine Ratio 16 05/02/2025 3:45 AM EDT [facility] Sodium, Plasma 134(L) 136 - 145 mmol/L 05/02/2025 3:45 AM EDT [facility] Potassium, Plasma 3.3(L) 3.6 - 4.9 mmol/L 05/02/2025 3:45 AM EDT [facility] Chloride, Plasma 90(L) 97 - 107 mmol/L 05/02/2025 3:45 AM EDT [facility] CO2, Plasma 37(H) 22 - 29 mmol/L 05/02/2025 3:45 AM EDT [facility] Anion Gap 7 6 - 16 mmol/L 05/02/2025 3:45 AM EDT [facility] Total Calcium, Plasma 8.7(L) 8.9 - 10.2 mg/dL 05/02/2025 3:45 AM EDT [facility] eGFRcr 112.9 mL/min/1.7 3m*2 05/02/2025 3:45 AM EDT [facility] Comment:Reported eGFRcr in m L/min/1.73m2 is based the CKD-EPI 2020 equation that does not use a race coefficient. Blood Venous blood specimen / Unknown Venipuncture / Unknown 05/02/2025 3:10 AM EDT 05/02/2025 3:15 AM EDT us Marjorie Myers MD LAB BLOOD ORDERABLES Final Resul t Performing Organization Address City/[facility] Co de Phone Number [facility] [address] [place] [address] * (ABNORMAL) Magnesium, Plasma (05/02/2025 3:10 AM EDT) Magnesium, Plasma 1.6(L) 1.9 - 2.4 mg/dL 05/02/2025 3:45 AM EDT [facility] Blood Venous blood specimen / Unknown Venipuncture / Unknown 05/02/2025 3:10 AM EDT 05/02/2025 3:15 AM EDT us Marjorie Myers MD LAB BLOOD ORDERABLES Final Resul t Performing Organization Address [facility] Co de Phone Number [facility] [address] [place] [address] * Phosphorus, Plasma (05/02/2025 3:10 AM EDT) Phosphorus, Plasma 3.0 2.5 - 4.5 mg/dL 05/02/2025 3:45 AM EDT [facility] Blood Venous blood specimen / Unknown Venipuncture / Unknown 05/02/2025 3:10 AM EDT 05/02/2025 3:15 AM EDT us Marjorie Myers MD LAB BLOOD ORDERABLES Final Resul t Performing Organization Address City/[facility] Co de Phone Number [facility] [address] [place] [address] * Creatine Kinase (CK), Total (05/02/2025 3:10 AM EDT) Creatine Kinase, Plasma 50 49 - 320 U/L 05/02/2025 3:45 AM EDT [facility] Blood Venous blood specimen / Unknown Venipuncture / Unknown 05/02/2025 3:10 AM EDT 05/02/2025 3:15 AM EDT Marjorie Myers MD LAB BLOOD ORDERABLES Final Resul t [facility] [address] [place] [address] * (ABNORMAL) POCT glucose meter (05/01/2025 8:26 PM EDT) [facility] POCT Glucose 316(H) 74 - 99 mg/dL [...] Comment 05/01/2025 8:27 PM EDT [facility] Netbackup Engineer ID Stella Coleman 05/01/20 8:27 PM EDT [facility] Device ID [id number] 05/01/2025 8:27 PM EDT [facility] Specimen Type POC Capillary 05/01/2025 8:27 PM EDT [facility] Blood Capillary blood specimen / Unknown 05/01/2025 8:26 PM EDT 05/01/2025 8:27 PM EDT Marjorie Myers MD LAB POINT OF CARE TE ST DOCKED DEVICE UNSOLICITED RESULTS Final Result [facility] [address] [place] [address] * (ABNORMAL) POCT glucose meter (05/01/2025 5:55 PM EDT) [facility] POCT Glucose 294(H) 74 - 99 mg/dL [...] 05/01/2025 5:57 PM EDT [facility] Netbackup Engineer ID EfraínSebastián 5:57 PM EDT [facility] Device ID [id number] 05/01/2025 5:57 PM EDT [facility] [...] de Phone Number [facility] [address] [place] [address] * (ABNORMAL) POCT glucose meter (05/01/2025 11:51 AM EDT) [facility] POCT Glucose 301(H) 74 - 99 mg/dL [...] 05/01/2025 11:53 AM EDT [facility] Netbackup Engineer ID Sebastián Kenny 11:53 AM EDT [facility] Device ID [id number] 05/01/2025 11:53 AM EDT [facility] Specimen Type POC Capillary 05/01/2025 11:53 AM EDT [facility] Blood Capillary blood specimen / Unknown 05/01/2025 11:51 AM EDT 05/01/2025 11:53 AM EDT us Marjorie Myers MD LAB POINT OF CARE TE ST DOCKED DEVICE UNSOLICITED RESULTS Final Result Performing Organization Address [facility] Co de Phone Number [facility] [address] [place] [address] * (ABNORMAL) POCT glucose meter (05/01/2025 9:13 [...] Comment 05/01/2025 9:15 AM EDT [facility] Netbackup Engineer ID Francisco Javier Martin 05/01/2025 9:15 AM EDT [facility]ALTH[facility] Device ID [id number] 05/01/2025 9:15 AM EDT [facility] Specimen Type POC Capillary 05/01/2025 9:15 AM EDT [facility] Blood Capillary blood specimen / Unknown 05/01/2025 9:13 AM EDT 05/01/2025 9:15 AM EDT Marjorie Myers MD LAB POINT OF CARE TE ST DOCKED DEVICE UNSOLICITED RESULTS Final Result Performing Organization Address [facility] de Phone Number [facility] [address] [place] [address] * Surgical Pathology Exam (05/01/2025 8:13 AM EDT) Case Report Surgical Pathology Case: [id number] Authorizing Provider: Mary Vicente MD Collected: 05/01/2025 0813 Ordering Location: [facility] Received: 05/01/2025 0917 Pathologist: Vidya Ly MD Specimens: A) - Toe, Right, R 5th toe B) - Toe, Right, R 5th toe margin 05/09/2025 9:56 AM EDT [facility] Correction History Case amended to provide diagnosis after final decal sections received 05/09/2025 9:56 AM EDT [facility] Comment:These results have b een appended to a previously final verified report. Final Diagnosis A. RIGHT FIFTH TOE, AMPUTATION: - ULCER WITH SUPPURATIVE INFLAMMATION, GANGRENOUS NECROSIS, AND UNDERLYING ACUTE OSTEOMYELITIS. B. RIGHT FIFTH TOE MARGIN, RESECTION: - NO ACUTE OSTEOMYELITIS IDENTIFIED. 05/09/2025 9:56 AM EDT [facility] Amendment electronically signed by Vidya Ly MD on 05/09/2025 at 0956 EDT at 1233 EDT Comment:Corrected result: Pr eviously reported as [Previous value contains rich text formatting which cannot be displayed here] (see Result History) on 05/05/2025 at 1233 EDT. Clinical Information Other chronic osteomyelitis of right foot (CMS/[facility]) [M86.671] 05/09/2025 9:56 AM EDT [facility] Gross Description A. R [...] The wound extends into the underlying bone. Policy Service Coordinator sections are submitted as follows: A1-A2: Necrotic lateral skin A3: Bone underlying gaping wound, following decalcification A4: Bone margin, following decalcification BLAS Kwok ([facility]) B. R 5TH TOE MARGIN The specimen is received fresh and placed in formalin, labeled R 5th toe MARGIN , and consists of a 2.8 x 2.8 x 0.6 cm aggregate of hemorrhagic bony fragments. The specimen is entirely submitted in cassette B1, following decalcification. Cold Time: 25m BLAS Kwok ([facility]) 05/09/2025 9:56 AM EDT [facility] Note: 05/09/2025 9:56 AM EDT [facility] Comment:Corrected result: Pr eviously [...] LAB PATHOLOGY ORDERABLES Edited Result - Final [facility] [address] [place] [address] * Type and Screen (05/01/2025 6:49 AM EDT) Pathologist [facility] ABO/Rh O Positive 05/01/2025 6:53 AM EDT BLOOD BANK Antibody Screen Negative 05/01/2025 6:53 AM EDT BLOOD BANK Specimen Expiration 05/04/2025 23:59 05/01/2025 6:53 AM EDT BLOOD BANK Blood Venous blood specimen / Unknown Venipuncture / Unknown 05/01/2025 6:49 AM EDT 05/01/2025 6:53 AM EDT Yanna Calhoun DO LAB BLOOD BANK TEST ORDERA BLES Final Result Performing Organization Address City/[facility]/REHABILITATION [facility] Co de Phone Number BLOOD BANK [address] [place] [address], * (ABNORMAL) POCT glucose meter (05/01/2025 6:48 AM EDT) Pathologist [facility] POCT Glucose 222(H) 74 - 99 mg/dL 05/01/2025 6:50 AM EDT [facility] Comment:Accuracy of a glucos e result [...] Comment 05/01/2025 6:50 AM EDT [facility] Netbackup Engineer ID Emelina Romero 6:50 AM EDT [facility] Device ID [id number] 05/01/2025 6:50 AM EDT [facility] Specimen Type POC Venous 05/01/2025 6:50 AM EDT [facility] Blood Venous blood specimen / Unknown 05/01/2025 6:48 AM EDT 05/01/2025 6:50 AM EDT us Marjorie Myers MD LAB POINT OF CARE TE ST DOCKED DEVICE UNSOLICITED RESULTS Final Result Performing Organization Address City/[facility]/ZIP Co de Phone Number HEALTHCARE LAB [address] [place] [address] * Creatine Kinase (CK), Total (05/01/2025 2:14 AM EDT) Creatine Kinase, Plasma 60 49 - 320 U/L 05/01/2025 2:53 AM EDT [facility] Blood Venous blood specimen / Unknown Venipuncture / Unknown 05/01/2025 2:14 AM EDT 05/01/2025 2:26 AM EDT us Marjorie Myers MD LAB BLOOD ORDERABLES Final Resul t [facility] [address] [place] [address] * (ABNORMAL) CBC and Differential (05/01/2025 2:14 AM EDT) WBC Count 6.96 3.70 - 10.30 10*3/uL LAB HEMATOLOGY METHOD 05/01/2025 2:37 AM EDT [facility] RBC Count 4.23(L) 4.60 - 6.10 10*6/uL LAB HEMATOLOGY METHOD 05/01/2025 2:37 AM EDT [facility] HGB 9.8(L) 13.7 - 17.5 g/dL LAB HEMATOLOGY METHOD 05/01/2025 2:37 AM EDT [facility] HCT 32.5(L) 40.0 - 51.0 % LAB HEMATOLOGY METHOD 05/01/2025 2:37 AM EDT [facility] Platelet Count 218 155 - 369 10*3/uL LAB HEMATOLOGY METHOD 05/01/2025 2:37 AM EDT [facility] MCV 77(L) 79 - 98 fL LAB HEMATOLOGY METHOD 05/01/2025 2:37 AM EDT [facility] MCH 23.2(L) 26.0 - 32.0 pg LAB HEMATOLOGY METHOD 05/01/2025 2:37 AM EDT [facility] MCHC 30.2(L) 30.7 - 35.5 g/dL LAB HEMATOLOGY METHOD 05/01/2025 2:37 AM EDT [facility] RDW 19.1(H) 11.5 - 14.5 % LAB HEMATOLOGY METHOD 05/01/2025 2:37 AM EDT [facility] MPV 8.4(L) 8.8 - 12.5 fL LAB HEMATOLOGY METHOD 05/01/2025 2:37 AM EDT [facility] nRBC 0.0 <=0.0 per 100 WBCs LAB HEMATOLOGY METHOD 05/01/2025 2:37 AM EDT [facility] Differential Type Automated LAB HEMATOLOGY METHOD 05/01/2025 2:37 AM EDT [facility] Neutrophils % 76 % LAB HEMATOLOGY METHOD 05/01/2025 2:37 AM EDT [facility] Lymphocytes % 11 % LAB HEMATOLOGY METHOD 05/01/2025 2:37 AM EDT [facility] Monocytes % 8 % LAB HEMATOLOGY METHOD 05/01/2025 2:37 AM EDT [facility] Eosinophils % 4 % LAB HEMATOLOGY METHOD 05/01/2025 2:37 AM EDT [facility] Basophils % 0 % LAB HEMATOLOGY METHOD 05/01/2025 2:37 AM EDT [facility] Immature Granulocytes % 1 % LAB HEMATOLOGY METHOD 05/01/2025 2:37 AM EDT [facility] Neutrophils Absolute 5.26 1.60 - 6.10 10*3/uL LAB HEMATOLOGY METHOD 05/01/2025 2:37 AM EDT [facility] Lymphocytes Absolute 0.79(L) 1.20 - 3.90 10*3/uL LAB HEMATOLOGY METHOD 05/01/2025 2:37 AM EDT [facility] Monocytes Absolute 0.57 0.30 - 0.90 10*3/uL LAB HEMATOLOGY METHOD 05/01/2025 2:37 AM EDT [facility] Eosinophils Absolute 0.28 0.00 - 0.50 10*3/uL LAB HEMATOLOGY METHOD 05/01/2025 2:37 AM EDT [facility] Basophils Absolute 0.02 0.00 - 0.10 10*3/uL LAB HEMATOLOGY METHOD 05/01/2025 2:37 AM EDT [facility] Immature Granulocytes Absolute 0.04 0.00 - 0.06 10*3/uL LAB HEMATOLOGY METHOD 05/01/2025 2:37 AM EDT [facility] Blood Venous blood specimen / Unknown Venipuncture / Unknown 05/01/2025 2:14 AM EDT 05/01/2025 2:26 AM EDT Narrative [facility] - 05/01/2025 2:37 AM EDT Therapeutic decision making should be based on absolute values, rather than percentages. us Marjorie Myers MD LAB BLOOD ORDERABLES Final Resul t [facility] [address] [place] [address] * (ABNORMAL) Basic Metabolic Panel, Plasma (05/01/2025 2:14 AM EDT) Glucose, Plasma 266(H) 74 - 99 mg/dL 05/01/2025 2:53 AM EDT [facility] BUN, Plasma 9 7 - 21 mg/dL 05/01/2025 2:53 AM EDT [facility] Creatinine, Plasma 0.71 0.70 - 1.20 mg/dL 05/01/2025 2:53 AM EDT [facility] BUN/Creatinine Ratio 13 05/01/2025 2:53 AM EDT [facility] Sodium, Plasma 137 136 - 145 mmol/L 05/01/2025 2:53 AM EDT [facility] Potassium, Plasma 3.4(L) 3.6 - 4.9 mmol/L 05/01/2025 2:53 AM EDT [facility] Chloride, Plasma 91(L) 97 - 107 mmol/L 05/01/2025 2:53 AM EDT [facility] CO2, Plasma 36(H) 22 - 29 mmol/L 05/01/2025 2:53 AM EDT [facility] Anion Gap 10 6 - 16 mmol/L 05/01/2025 2:53 AM EDT [facility] Total Calcium, Plasma 8.6(L) 8.9 - 10.2 mg/dL 05/01/2025 2:53 AM EDT [facility] eGFRcr 113.9 mL/min/1.7 3m*2 05/01/2025 2:53 AM EDT [facility] Comment:Reported eGFRcr in m L/min/1.73m2 is based the CKD-EPI 2020 equation that does not use a race coefficient. Blood Venous blood specimen / Unknown Venipuncture / Unknown 05/01/2025 2:14 AM EDT 05/01/2025 2:26 AM EDT Marjorie Myers MD LAB BLOOD ORDERABLES Final Resul t Performing Organization Address City/[facility]/ZIP Co de Phone Number [facility] [address] [place] [address] * (ABNORMAL) Magnesium, Plasma (05/01/2025 2:14 AM EDT) Magnesium, Plasma 1.8(L) 1.9 - 2.4 mg/dL 05/01/2025 2:53 AM EDT [facility] Blood Venous blood specimen / Unknown Venipuncture / Unknown 05/01/2025 2:14 AM EDT 05/01/2025 2:26 AM EDT us Marjorie Myers MD LAB BLOOD ORDERABLES Final Resul t [facility] [address] [place] [address] * Phosphorus, Plasma (05/01/2025 2:14 AM EDT) [facility] Phosphorus, Plasma 3.0 2.5 - 4.5 mg/dL 05/01/2025 2:53 AM EDT [facility] Blood Venous blood specimen / Unknown Venipuncture / Unknown 05/01/2025 2:14 AM EDT 05/01/2025 2:26 AM EDT Marjorie Myers MD LAB BLOOD ORDERABLES Final Resul t [facility] [address] [place] [address] * (ABNORMAL) POCT glucose meter (04/30/2025 8:21 PM EDT) [facility] POCT Glucose 226(H) 74 - 99 mg/dL [...] 04/30/2025 8:23 PM EDT [facility] Netbackup Engineer ID Sandra Perez 04/30/20 8:23 PM EDT [facility] Device ID [id number] 04/30/2025 8:23 PM EDT [facility] Specimen Type POC Capillary 04/30/2025 8:23 PM EDT [facility] Blood Capillary blood specimen / Unknown 04/30/2025 8:21 PM EDT 04/30/2025 8:23 PM EDT Marjorie Myers MD LAB POINT OF CARE TE ST DOCKED DEVICE UNSOLICITED RESULTS Final Result [facility] [address] [place] [address] * (ABNORMAL) POCT glucose meter (04/30/2025 4:19 PM EDT) [facility] POCT Glucose 173(H) 74 - 99 mg/dL [...] 04/30/2025 4:54 PM EDT [facility] Net[employer] Engineer ID Priyanka Negrete 04/30/20 4:54 PM EDT [facility] Device ID [id number] 04/30/2025 4:54 PM EDT [facility] Specimen Type POC Capillary 04/30/2025 4:54 PM EDT [facility] Blood Capillary blood specimen / Unknown 04/30/2025 4:19 PM EDT 04/30/2025 4:54 PM EDT Marjorie Myers MD LAB POINT OF CARE TE ST DOCKED DEVICE UNSOLICITED RESULTS Final Result Performing Organization Address City/State/[facility] Co de Phone Number [facility] [address] [place] [address] * (ABNORMAL) POCT glucose meter (04/30/2025 12:11 PM EDT) [facility] POCT Glucose 226(H) 74 - 99 mg/dL [...] 04/30/2025 12:50 PM EDT [facility] Netbackup Engineer ID Priyanka Negrete 04/30/20 12:50 PM EDT [facility] Device ID [id number] 04/30/2025 12:50 PM EDT [facility] Specimen Type POC Capillary 04/30/2025 12:50 PM EDT [facility] Blood Capillary blood specimen / Unknown 04/30/2025 12:11 PM EDT 04/30/2025 12:50 PM EDT us Marjorie Myers MD LAB POINT OF CARE TE ST DOCKED DEVICE UNSOLICITED RESULTS Final Result Performing Organization Address City/[facility] Co de Phone Number HEALTHCARE LAB [address] [place] [address] * (ABNORMAL) POCT glucose meter (04/30/2025 8:18 [...] Comment 04/30/2025 8:55 AM EDT [facility] Netbackup Engineer ID Priyanka Negrete 04/30/20 8:55 AM EDT [facility] Device ID [id number] 04/30/2025 8:55 AM EDT [facility] Specimen Type POC Capillary 04/30/2025 8:55 AM EDT [facility] Blood Capillary blood specimen / Unknown 04/30/2025 8:18 AM EDT 04/30/2025 8:55 AM EDT us Marjorie Myers MD LAB POINT OF CARE TE ST DOCKED DEVICE UNSOLICITED RESULTS Final Result Performing Organization Address City/[facility] Co de Phone Number [facility]ALTH[facility]ARE [facility] [address] [place] [address] * (ABNORMAL) CBC and Differential (04/30/2025 3:19 AM EDT) WBC Count 8.84 3.70 - 10.30 10*3/uL LAB HEMATOLOGY METHOD 04/30/2025 3:35 AM EDT [facility] RBC Count 4.31(L) 4.60 - 6.10 10*6/uL LAB HEMATOLOGY METHOD 04/30/2025 3:35 AM EDT [facility] HGB 9.6(L) 13.7 - 17.5 g/dL LAB HEMATOLOGY METHOD 04/30/2025 3:35 AM EDT [facility] HCT 32.6(L) 40.0 - 51.0 % LAB HEMATOLOGY METHOD 04/30/2025 3:35 AM EDT [facility] Platelet Count 245 155 - 369 10*3/uL LAB HEMATOLOGY METHOD 04/30/2025 3:35 AM EDT [facility] MCV 76(L) 79 - 98 fL LAB HEMATOLOGY METHOD 04/30/2025 3:35 AM EDT [facility] MCH 22.3(L) 26.0 - 32.0 pg LAB HEMATOLOGY METHOD 04/30/2025 3:35 AM EDT [facility] MCHC 29.4(L) 30.7 - 35.5 g/dL LAB HEMATOLOGY METHOD 04/30/2025 3:35 AM EDT [facility] RDW 19.1(H) 11.5 - 14.5 % LAB HEMATOLOGY METHOD 04/30/2025 3:35 AM EDT [facility] MPV 8.5(L) 8.8 - 12.5 fL LAB HEMATOLOGY METHOD 04/30/2025 3:35 AM EDT [facility] nRBC 0.0 <=0.0 per 100 WBCs LAB HEMATOLOGY METHOD 04/30/2025 3:35 AM EDT [facility] Differential Type Automated LAB HEMATOLOGY METHOD 04/30/2025 3:35 AM EDT [facility] Neutrophils % 78 % LAB HEMATOLOGY METHOD 04/30/2025 3:35 AM EDT [facility] Lymphocytes % 11 % LAB HEMATOLOGY METHOD 04/30/2025 3:35 AM EDT [facility] Monocytes % 7 % LAB HEMATOLOGY METHOD 04/30/2025 3:35 AM EDT [facility] Eosinophils % 3 % LAB HEMATOLOGY METHOD 04/30/2025 3:35 AM EDT [facility] Basophils % 0 % LAB HEMATOLOGY METHOD 04/30/2025 3:35 AM EDT [facility] Immature Granulocytes % 1 % LAB HEMATOLOGY METHOD 04/30/2025 3:35 AM EDT [facility] Neutrophils Absolute 6.90(H) 1.60 - 6.10 10*3/uL LAB HEMATOLOGY METHOD 04/30/2025 3:35 AM EDT [facility] Lymphocytes Absolute 0.95(L) 1.20 - 3.90 10*3/uL LAB HEMATOLOGY METHOD 04/30/2025 3:35 AM EDT [facility] Monocytes Absolute 0.64 0.30 - 0.90 10*3/uL LAB HEMATOLOGY METHOD 04/30/2025 3:35 AM EDT [facility] Eosinophils Absolute 0.29 0.00 - 0.50 10*3/uL LAB HEMATOLOGY METHOD 04/30/2025 3:35 AM EDT [facility] Basophils Absolute 0.02 0.00 - 0.10 10*3/uL LAB HEMATOLOGY METHOD 04/30/2025 3:35 AM EDT [facility] Immature Granulocytes Absolute 0.04 0.00 - 0.06 10*3/uL LAB HEMATOLOGY METHOD 04/30/2025 3:35 AM EDT [facility] Blood Venous blood specimen / Unknown Venipuncture / Unknown 04/30/2025 3:19 AM EDT 04/30/2025 3:26 AM EDT Narrative [facility] - 04/30/2025 3:35 AM EDT Therapeutic decision making should be based on absolute values, rather than percentages. Marjorie Myers MD LAB BLOOD ORDERABLES Final Resul t [facility] [address] [place] [address] * (ABNORMAL) Basic Metabolic Panel, Plasma (04/30/2025 3:19 AM EDT) Glucose, Plasma 254(H) 74 - 99 mg/dL 04/30/2025 3:56 AM EDT [facility] BUN, Plasma 11 7 - 21 mg/dL 04/30/2025 3:56 AM EDT [facility] Creatinine, Plasma 0.77 0.70 - 1.20 mg/dL 04/30/2025 3:56 AM EDT [facility] BUN/Creatinine Ratio 14 04/30/2025 3:56 AM EDT [facility] Sodium, Plasma 137 136 - 145 mmol/L 04/30/2025 3:56 AM EDT [facility] Potassium, Plasma 3.3(L) 3.6 - 4.9 mmol/L 04/30/2025 3:56 AM EDT [facility] Chloride, Plasma 91(L) 97 - 107 mmol/L 04/30/2025 3:56 AM EDT [facility] CO2, Plasma 36(H) 22 - 29 mmol/L 04/30/2025 3:56 AM EDT [facility] Anion Gap 10 6 - 16 mmol/L 04/30/2025 3:56 AM EDT [facility] Total Calcium, Plasma 8.7(L) 8.9 - 10.2 mg/dL 04/30/2025 3:56 AM EDT [facility] eGFRcr 111.1 mL/min/1.7 3m*2 04/30/2025 3:56 AM EDT [facility] Comment:Reported eGFRcr in m L/min/1.73m2 is based the CKD-EPI 2020 equation that does not use a race coefficient. Blood Venous blood specimen / Unknown Venipuncture / Unknown 04/30/2025 3:19 AM EDT 04/30/2025 3:26 AM EDT us Marjorie Myers MD LAB BLOOD ORDERABLES Final Resul t Performing Organization Address City/[facility]/ZIP Co de Phone Number [facility] [address] [place] [address] * (ABNORMAL) Magnesium, Plasma (04/30/2025 3:19 AM EDT) Magnesium, Plasma 1.5(L) 1.9 - 2.4 mg/dL 04/30/2025 3:56 AM EDT [facility] Blood Venous blood specimen / Unknown Venipuncture / Unknown 04/30/2025 3:19 AM EDT 04/30/2025 3:26 AM EDT us Marjorie Myers MD LAB BLOOD ORDERABLES Final Resul t Performing Organization Address City/[facility]/ZIP Co de Phone Number [facility] [address] [place] [address] * Phosphorus, Plasma (04/30/2025 3:19 AM EDT) [facility] Phosphorus, Plasma 2.7 2.5 - 4.5 mg/dL 04/30/2025 3:56 AM EDT [facility] Blood Venous blood specimen / Unknown Venipuncture / Unknown 04/30/2025 3:19 AM EDT 04/30/2025 3:26 AM EDT Marjorie Myers MD LAB BLOOD ORDERABLES Final Resul t Performing Organization Address City/[facility]/ZIP Co de Phone Number [facility] [address] [place] [address] * (ABNORMAL) POCT glucose meter (04/29/2025 7:38 PM EDT) [facility] POCT Glucose 191(H) 74 - 99 mg/dL [...] 04/29/2025 9:20 PM EDT [facility] Netbackup Engineer ID Ervin Du V 025 9:20 PM EDT [facility] Device ID [id number] 04/29/2025 9:20 PM EDT [facility] Specimen Type POC Capillary 04/29/2025 9:20 PM EDT [facility] Blood Capillary blood specimen / Unknown 04/29/2025 7:38 PM EDT 04/29/2025 9:20 PM EDT us Marjorie Myers MD LAB POINT OF CARE TE ST DOCKED DEVICE UNSOLICITED RESULTS Final Result Performing Organization Address City/[facility]/ZIP Co de Phone Number [facility] [address] [place] [address] * (ABNORMAL) POCT glucose meter (04/29/2025 5:21 PM EDT) [facility] POCT Glucose 241(H) 74 - 99 mg/dL [...] Comment 04/29/2025 5:23 PM EDT [facility] Netbackup Engineer ID Rocio Dozier 04/29/20 5:23 PM EDT [facility] Device ID [id number] 04/29/2025 5:23 PM EDT [facility] Specimen Type POC Capillary 04/29/2025 5:23 PM EDT [facility] Blood Capillary blood specimen / Unknown 04/29/2025 5:21 PM EDT 04/29/2025 5:23 PM EDT Marjorie Myers MD LAB POINT OF CARE TE ST DOCKED DEVICE UNSOLICITED RESULTS Final Result Performing Organization Address City/State/[facility] Co de Phone Number [facility] [address] [place] [address] * (ABNORMAL) POCT glucose meter (04/29/2025 11:15 AM EDT) [facility] POCT Glucose 204(H) 74 - 99 mg/dL [...] 04/29/2025 11:17 AM EDT [facility] Netbackup Engineer ID Rocio Dozier 04/29/20 11:17 AM EDT [facility] Device ID [id number] 04/29/2025 11:17 AM EDT [facility] Specimen Type POC Capillary 04/29/2025 11:17 AM EDT [facility] Blood Capillary blood specimen / Unknown 04/29/2025 11:15 AM EDT 04/29/2025 11:17 AM EDT Marjorie Myers MD LAB POINT OF CARE TE ST DOCKED DEVICE UNSOLICITED RESULTS Final Result Performing Organization Address City/[facility] Co de Phone Number [facility] [address] [place] [address] * (ABNORMAL) POCT glucose meter (04/29/2025 7:13 AM EDT) Pathologist [facility] POCT Glucose 269(H) 74 - 99 mg/dL [...] Comment 04/29/2025 7:14 AM EDT [facility] Netbackup Engineer ID Rocio Dozier 04/29/20 7:14 AM EDT [facility] Device ID [id number] 04/29/2025 7:14 AM EDT [facility] Specimen Type POC Capillary 04/29/2025 7:14 AM EDT [facility] Blood Capillary blood specimen / Unknown 04/29/2025 7:13 AM EDT 04/29/2025 7:14 AM EDT Marjorie Myers MD LAB POINT OF CARE TE ST DOCKED DEVICE UNSOLICITED RESULTS Final Result Performing Organization Address City/[facility]/ZIP Co de Phone Number [facility] [address] [place] [address] * Folate (04/29/2025 3:04 AM EDT) Pathologist [facility] Folate, Serum 10.5 >4.6 ng/mL 04/29/2025 4:05 AM EDT [facility] Blood Venous blood specimen / Unknown Venipuncture / Unknown 04/29/2025 3:04 AM EDT 04/29/2025 3:20 AM EDT us Sy De La Fuente RISK MANAGEMENT PROFESSIONAL, DNP LAB BLOOD ORDERABLES Fin al Result Performing Organization Address City/[facility]/ZIP Co de Phone Number [facility] [address] [place] [address] * Vitamin B12 (04/29/2025 3:04 AM EDT) Vitamin B12, Serum 338 210 - 1,033 pg/mL 04/29/2025 4:06 AM EDT [facility] Blood Venous blood specimen / Unknown Venipuncture / Unknown 04/29/2025 3:04 AM EDT 04/29/2025 3:20 AM EDT us Sy De La Fuente APRN, DNP LAB BLOOD ORDERABLES Fin al Result Performing Organization Address [facility]/ZIP Co de Phone Number [facility] [address] [place] [id number] * (ABNORMAL) Iron & Total Iron Binding Capacity, Plasma (Includes Transferrin) (04/29/2025 3:04 AM EDT) Iron, Plasma 36(L) 50 - 170 ug/dL 04/29/2025 3:55 AM EDT [facility] Transferrin, Plasma 197(L) 200 - 360 mg/dL 04/29/2025 3:55 AM EDT [facility] Total Iron Binding Capacity, Plasma 246 240 - 450 ug/mL 04/29/2025 3:55 AM EDT [facility] Transferrin Saturation 15 14 - 50 % 04/29/2025 3:55 AM EDT [facility] Blood Venous blood specimen / Unknown Venipuncture / Unknown 04/29/2025 3:04 AM EDT 04/29/2025 3:19 AM EDT us Sy De La Fuente APRN, DNP LAB BLOOD ORDERABLES Fin al Result Performing Organization Address City/[facility]/ZIP Co de Phone Number [facility] [address] [place] [address] * Ferritin (04/29/2025 3:04 AM EDT) Ferritin, Serum 40 20 - 400 ng/mL 04/29/2025 4:06 AM EDT [facility] Blood Venous blood specimen / Unknown Venipuncture / Unknown 04/29/2025 3:04 AM EDT 04/29/2025 3:20 AM EDT us Sy De La Fuente APRN, DENISE LAB BLOOD ORDERABLES Fin al Result Performing Organization Address [facility] de Phone Number [facility] [address] [place] [address] * Cortisol (04/29/2025 3:04 AM EDT) Pathologist [facility] Cortisol 2.80 Before 10am: 3.7 - 19.4. After 5pm: 2.9 - 17.3 ug/dL 04/29/2025 4:22 AM EDT [facility] Comment:Testing performed on [employer] Creative [employer] Writer, standardized against ASSISTED Reference Standard concentration values assigned by LC-MS/MS and verified by BCR 192 and BCR 193 certified reference materials. Blood Venous blood specimen / Unknown Venipuncture / Unknown 04/29/2025 3:04 AM EDT 04/29/2025 3:19 AM EDT us Sy De La Fuente APRN, DNP LAB REF LAB BLOOD AND FL UID ORD Final Result Performing Organization Address [facility] Phone Number [facility] [address] [place] [address] * TSH (04/29/2025 3:04 AM EDT) Thyroid Stimulating Hormone, Plasma 1.58 0.40 - 4.20 uIU/mL 04/29/2025 3:55 AM EDT [facility] Blood Venous blood specimen / Unknown Venipuncture / Unknown 04/29/2025 3:04 AM EDT 04/29/2025 3:19 AM EDT us Sy De La Fuente APRN, DNP LAB BLOOD ORDERABLES Fin al Result Performing Organization Address [facility] Phone Number [facility] [address] [place] [address] * (ABNORMAL) Hemoglobin A1c (04/29/2025 3:04 AM EDT) Hemoglobin A1c 8.9(H) <5.7 % 04/29/2025 9:40 AM EDT [facility] Blood Venous blood specimen / Unknown Venipuncture / Unknown 04/29/2025 3:04 AM EDT 04/29/2025 3:19 AM EDT Narrative [facility] - 04/29/2025 9:40 AM [...] ORDERABLES Fin al Result Performing Organization Address City/[facility]/ZIP Co de Phone Number [facility] [address] [place] [address] * Phosphorus (04/29/2025 3:04 AM EDT) Phosphorus, Plasma 3.6 2.5 - 4.5 mg/dL 04/29/2025 3:55 AM EDT [facility] Blood Venous blood specimen / Unknown Venipuncture / Unknown 04/29/2025 3:04 AM EDT 04/29/2025 3:19 AM EDT Sy De La Fuente APRN, DNP LAB BLOOD ORDERABLES Fin al Result Performing Organization Address City/[facility]/ZIP Co de Phone Number [facility] [address] [place] [address] * (ABNORMAL) Magnesium, Plasma (04/29/2025 3:04 AM EDT) Magnesium, Plasma 1.7(L) 1.9 - 2.4 mg/dL 04/29/2025 3:55 AM EDT [facility] Blood Venous blood specimen / Unknown Venipuncture / Unknown 04/29/2025 3:04 AM EDT 04/29/2025 3:19 AM EDT us Sy De La Fuente RISK MANAGEMENT PROFESSIONAL, DNP LAB BLOOD ORDERABLES Fin al Result [facility] [address] [place] [address] * (ABNORMAL) Comprehensive metabolic panel (04/29/2025 3:04 AM EDT) Glucose, Plasma 219(H) 74 - 99 mg/dL 04/29/2025 3:55 AM EDT [facility] BUN, Plasma 9 7 - 21 mg/dL 04/29/2025 3:55 AM EDT [facility] Creatinine, Plasma 0.94 0.70 - 1.20 mg/dL 04/29/2025 3:55 AM EDT [facility] BUN/Creatinine Ratio 10 04/29/2025 3:55 AM EDT [facility] Sodium, Plasma 137 136 - 145 mmol/L 04/29/2025 3:55 AM EDT [facility] Potassium, Plasma 3.1(L) 3.6 - 4.9 mmol/L 04/29/2025 3:55 AM EDT [facility] Chloride, Plasma 92(L) 97 - 107 mmol/L 04/29/2025 3:55 AM EDT [facility] CO2, Plasma 38(H) 22 - 29 mmol/L 04/29/2025 3:55 AM EDT [facility] Anion Gap 7 6 - 16 mmol/L 04/29/2025 3:55 AM EDT [facility] Total Calcium, Plasma 8.6(L) 8.9 - 10.2 mg/dL 04/29/2025 3:55 AM EDT [facility] Total Protein 7.4 6.3 - 7.9 g/dL 04/29/2025 3:55 AM EDT [facility] Albumin, Plasma 3.3(L) 3.5 - 5.2 g/dL 04/29/2025 3:55 AM EDT [facility] AST, Plasma 18 10 - 50 U/L 04/29/2025 3:55 AM EDT [facility] ALT, Plasma 11 10 - 50 U/L 04/29/2025 3:55 AM EDT [facility] Alkaline Phosphatase, Plasma 55 40 - 115 U/L 04/29/2025 3:55 AM EDT [facility] Total Bilirubin, Plasma 0.8 0.2 - 1.1 mg/dL 04/29/2025 3:55 AM EDT [facility] eGFRcr 100.6 mL/min/1.7 3m*2 04/29/2025 3:55 AM EDT [facility] Comment:Reported eGFRcr in m L/min/1.73m2 is based the CKD-EPI 2020 equation that does not use a race coefficient. Blood Venous blood specimen / Unknown Venipuncture / Unknown 04/29/2025 3:04 AM EDT 04/29/2025 3:19 AM EDT us Sy De La Fuente [employer], DNP LAB BLOOD ORDERABLES Fin al Result [facility] [address] [place] [address] * (ABNORMAL) CBC and Differential (04/29/2025 3:04 AM EDT) WBC Count 6.68 3.70 - 10.30 10*3/uL LAB HEMATOLOGY METHOD 04/29/2025 3:16 AM EDT [facility] RBC Count 4.21(L) 4.60 - 6.10 10*6/uL LAB HEMATOLOGY METHOD 04/29/2025 3:16 AM EDT [facility] HGB 9.4(L) 13.7 - 17.5 g/dL LAB HEMATOLOGY METHOD 04/29/2025 3:16 AM EDT [facility] HCT 32.0(L) 40.0 - 51.0 % LAB HEMATOLOGY METHOD 04/29/2025 3:16 AM EDT [facility] Platelet Count 249 155 - 369 10*3/uL LAB HEMATOLOGY METHOD 04/29/2025 3:16 AM EDT [facility] MCV 76(L) 79 - 98 fL LAB HEMATOLOGY METHOD 04/29/2025 3:16 AM EDT [facility] MCH 22.3(L) 26.0 - 32.0 pg LAB HEMATOLOGY METHOD 04/29/2025 3:16 AM EDT [facility] MCHC 29.4(L) 30.7 - 35.5 g/dL LAB HEMATOLOGY METHOD 04/29/2025 3:16 AM EDT [facility] RDW 19.6(H) 11.5 - 14.5 % LAB HEMATOLOGY METHOD 04/29/2025 3:16 AM EDT [facility] MPV 8.4(L) 8.8 - 12.5 fL LAB HEMATOLOGY METHOD 04/29/2025 3:16 AM EDT [facility] nRBC 0.0 <=0.0 per 100 WBCs LAB HEMATOLOGY METHOD 04/29/2025 3:16 AM EDT [facility] Differential Type Automated LAB HEMATOLOGY METHOD 04/29/2025 3:16 AM EDT [facility] Neutrophils % 75 % LAB HEMATOLOGY METHOD 04/29/2025 3:16 AM EDT [facility] Lymphocytes % 11 % LAB HEMATOLOGY METHOD 04/29/2025 3:16 AM EDT [facility] Monocytes % 9 % LAB HEMATOLOGY METHOD 04/29/2025 3:16 AM EDT [facility] Eosinophils % 4 % LAB HEMATOLOGY METHOD 04/29/2025 3:16 AM EDT [facility] Basophils % 0 % LAB HEMATOLOGY METHOD 04/29/2025 3:16 AM EDT [facility] Immature Granulocytes % 1 % LAB HEMATOLOGY METHOD 04/29/2025 3:16 AM EDT [facility] Neutrophils Absolute 5.01 1.60 - 6.10 10*3/uL LAB HEMATOLOGY METHOD 04/29/2025 3:16 AM EDT [facility] Lymphocytes Absolute 0.75(L) 1.20 - 3.90 10*3/uL LAB HEMATOLOGY METHOD 04/29/2025 3:16 AM EDT [facility] Monocytes Absolute 0.59 0.30 - 0.90 10*3/uL LAB HEMATOLOGY METHOD 04/29/2025 3:16 AM EDT [facility] Eosinophils Absolute 0.26 0.00 - 0.50 10*3/uL LAB HEMATOLOGY METHOD 04/29/2025 3:16 AM EDT [facility] Basophils Absolute 0.03 0.00 - 0.10 10*3/uL LAB HEMATOLOGY METHOD 04/29/2025 3:16 AM EDT [facility] Immature Granulocytes Absolute 0.04 0.00 - 0.06 10*3/uL LAB HEMATOLOGY METHOD 04/29/2025 3:16 AM EDT [facility] Blood Venous blood specimen / Unknown Venipuncture / Unknown 04/29/2025 3:04 AM EDT 04/29/2025 3:13 AM EDT Narrative [facility] - 04/29/2025 3:16 AM EDT Therapeutic decision making should be based on absolute values, rather than percentages. Sy De La Fuente RISK MANAGEMENT PROFESSIONAL, DNP LAB BLOOD ORDERABLES Fin al Result [facility] [address] [place] [address] * (ABNORMAL) POCT glucose meter (04/28/2025 9:06 PM EDT) [facility] Signature POCT Glucose 212(H) 74 - [...] Comment 04/28/2025 9:08 PM EDT [facility] Netbackup Engineer ID [place] milady 04/28/2025 9:08 PM EDT [facility]ARE LAB Device ID [id number] 04/28/2025 9:08 PM EDT [facility] Specimen Type POC Capillary 04/28/2025 9:08 PM EDT [facility] Blood Capillary blood specimen / Unknown 04/28/2025 9:06 PM EDT 04/28/2025 9:08 PM EDT Marjorie Myers MD LAB POINT OF CARE TE ST DOCKED DEVICE UNSOLICITED RESULTS Final Result Performing Organization Address [facility] de Phone Number HEALTHCARE LAB [address] [place] [address] * (ABNORMAL) POCT glucose meter (04/28/2025 5:34 PM EDT) Pathologist [facility] POCT Glucose 213(H) 74 - 99 mg/dL [...] Comment 04/28/2025 5:38 PM EDT [facility] Netbackup Engineer ID Ailyn Finch 5:38 PM EDT [facility]ARE LAB Device ID [id number] 04/28/2025 5:38 PM EDT [facility] Specimen Type POC Capillary 04/28/2025 5:38 PM EDT [facility] Blood Capillary blood specimen / Unknown 04/28/2025 5:34 PM EDT 04/28/2025 5:38 PM EDT Marjorie Myers MD LAB POINT OF CARE TE ST DOCKED DEVICE UNSOLICITED RESULTS Final Result Performing Organization Address City/[facility] Co de Phone Number [facility] [address] [place] [address] * (ABNORMAL) POCT glucose meter (04/28/2025 3:51 PM EDT) Pathologist [facility] POCT Glucose 209(H) 74 - 99 mg/dL [...] 04/28/2025 3:54 PM EDT [facility] Netbackup Engineer ID Ailyn Finch 3:54 PM EDT HEALTH[facility]ARE LAB Device ID [id number] 04/28/2025 3:54 PM EDT HEALTHCARE LAB Specimen [...] de Phone Number [facility] [address] [place] [address] * VAS Ankle Brachial Index - GABBI [...] are demonstrated at the levels of the STREET CAR MECHANIC and DPA. Segmental pressures are within normal limits with a STREET CAR MECHANIC GABBI of 1.1 (172 mmHg) and a DPA GABBI of 1.0 (149 mmHg). Digit pressures are of 122 mmHg. Left: Multiphasic waveforms are demonstrated at the levels of the STREET CAR MECHANIC and DPA. Segmental pressures are within normal limits with a STREET CAR MECHANIC GABBI of 1.1 (164 mmHg) and a DPA GABBI of 1.0 (153 mmHg). Digit pressures are of 151 mmHg. Procedure Note Chris Schaefer MD - 04/28/2025 CLINICAL INDICATION: Diabetic foot ulcer TECHNIQUE: Non-invasive, continuous wave Doppler exam with segmental pressures andspectral analysis of the lower extremity was performed. COMPARISON: None. FINDINGS: Right: Multiphasic waveforms are demonstrated at the levels of the STREET CAR MECHANIC andDPA. Segmental pressures are within normal limits with a STREET CAR MECHANIC GABBI of 1.1(172 mmHg) and a DPA GABBI of 1.0 (149 mmHg). Digit pressures are of 122mmHg. Left: Multiphasic waveforms are demonstrated at the levels of the STREET CAR MECHANIC andDPA. Segmental pressures are within normal limits with a STREET CAR MECHANIC GABBI of 1.1(164 mmHg) and a DPA [...] 4:14 PM us Sy De La Fuente RISK MANAGEMENT PROFESSIONAL, DNP CV VASCULAR PROCEDURES F inal Result * Multi Drug Resistance Test (04/28/2025 1:44 PM EDT) Culture No Multi Drug Resistant Organisms Isolated 04/29/2025 2:32 PM EDT [facility] Swab (Nares and Saba Rectal) Non-blood Collection / Unknown 04/28/2025 1:44 PM EDT 04/28/2025 2:15 PM EDT Narrative [facility] - 04/29/2025 2:32 PM EDT This test was developed and its performance characteristics determined by the [facility]. Although the media is FDA-approved, it is not FDA-approved for all specimen types submitted. The FDA has determined that such clearance or approval is not necessary. This test is used for surveillance purposes. It should not be regarded as investigational or for research. The [facility] is certified under the Clinical Laboratory Improvement Amendments of 1988 (CLIA-88) as qualified to perform high complexity clinical laboratory testing. us Sy De La Fuente APRN, DNP LAB MICROBIOLOGY - GENER AL ORDERABLES Final Result [facility] [address] [place] [address] * (ABNORMAL) POCT glucose meter (04/28/2025 12:52 [...] 04/28/2025 12:56 PM EDT [facility] Netbackup Engineer ID Ailyn Finch 12:56 PM EDT [facility]ARE LAB Device ID [id number] 04/28/2025 12:56 PM EDT [facility] Specimen Type POC Capillary 04/28/2025 12:56 PM EDT [facility] Blood Capillary blood specimen / Unknown 04/28/2025 12:52 PM EDT 04/28/2025 12:56 PM EDT us Marjorie Myers MD LAB POINT OF CARE TE ST DOCKED DEVICE UNSOLICITED RESULTS Final Result [facility] [address] [place] [address] * (ABNORMAL) POCT glucose meter (04/28/2025 11:39 [...] Comment 04/28/2025 11:44 AM EDT [facility] Netbackup Engineer ID Ailyn Finch 11:44 AM EDT HEALTH[facility]ARE LAB Device ID [id number] 04/28/2025 11:44 AM EDT [facility] Specimen Type POC Capillary 04/28/2025 11:44 AM EDT [facility] Blood Capillary blood specimen / Unknown 04/28/2025 11:39 AM EDT 04/28/2025 11:44 AM EDT us Marjorie Myers MD LAB POINT OF CARE TE ST DOCKED DEVICE UNSOLICITED RESULTS Final Result Performing Organization Address City/[facility]/ZIP Co de Phone Number HEALTHCARE LAB [address] [place] [address] * Lavender Top (04/28/2025 8:13 AM EDT) Pathologist [facility] Extra Hold for add-ons 04/28/2025 11:01 AM EDT [facility] Comment:Auto resulted. Blood Venous blood specimen / Unknown 04/28/2025 8:13 AM EDT 04/28/2025 8:19 AM EDT us Marjorie Myers MD LAB BLOOD ORDERABLES Final Resul t [facility] [address] [place] [address] * Light Green Top (04/28/2025 8:13 AM EDT) Extra Hold for add-ons 04/28/2025 11:01 AM EDT [facility] Comment:Auto resulted. Blood Venous blood specimen / Unknown 04/28/2025 8:13 AM EDT 04/28/2025 8:19 AM EDT us Marjorie Myers MD LAB BLOOD ORDERABLES Final Resul t [facility] [address] [place] [address] * APTT (04/28/2025 8:13 AM EDT) aPTT 32 25 - 35 sec 04/28/2025 8:33 AM EDT [facility] Blood Venous blood specimen / Unknown Venipuncture / Unknown 04/28/2025 8:13 AM EDT 04/28/2025 8:18 AM EDT us Sy De La Fuente APRN, DNP LAB BLOOD ORDERABLES Fin al Result Performing Organization Address [facility]/ZIP Co de Phone Number [facility] [address] [place] [address] * (ABNORMAL) PT/INR (04/28/2025 8:13 AM EDT) Prothrombin Time 17.5(H) 12.0 - 14.3 sec 04/28/2025 8:33 AM EDT [facility] INR 1.4(H) 0.9 - 1.1 04/28/2025 8:33 AM EDT [facility] Blood Venous blood specimen / Unknown Venipuncture / Unknown 04/28/2025 8:13 AM EDT 04/28/2025 8:18 AM EDT Narrative [facility] - 04/28/2025 8:33 AM EDT OPTIMAL INR RANGES FOR PATIENT ON ORAL ANTICOAGULANT THERAPY Prevention of venous thromboembolism INR 2.0 to 3.0 In patients with heart disease: Atrial fibrillation INR 2.0 to 3.0 Valvular heart disease INR 2.0 to 3.0 Tissue heart valves INR 2.0 to 3.0 Mechanical prosthetic valves INR 2.5 to 3.5 Prevention of recurrent [place] INR 2.5 to 3.5 Sy De La Fuente APRN, DENISE LAB BLOOD ORDERABLES Fin al Result Performing Organization Address City/[facility]/ZIP Co de Phone Number [facility] [address] [place] [address] * ECG Adult (04/28/2025 7:20 AM EDT) EKG DIAGNOSIS CLASS Abnormal MUSE ECG Ventricular Rate 90 BPM MUSE ECG Atrial Rate 90 BPM MUSE ECG MI Interval 206 ms MUSE ECG QRSD Interval 146 ms MUSE ECG QT Interval 450 ms MUSE ECG QTC Interval 550 ms MUSE ECG P [place] 69 degrees MUSE ECG R [place] -32 degrees MUSE ECG T Wave [place] 35 degrees MUSE ECG Diagnosis Baseline Artifact [...] ORDERABLES Final Re sult Performing Organization Address City/[facility] Co de Phone Number MUSE ECG * (ABNORMAL) POCT glucose meter (04/28/2025 7:17 AM EDT) POCT Glucose 199(H) 74 - 99 mg/dL 04/28/2025 7:21 AM EDT [facility] Comment:Accuracy of a glucos e result [...] Comment 04/28/2025 7:21 AM EDT [facility] Netbackup Engineer ID Ailyn Finch 7:21 AM EDT HEALTHCARE LAB Device ID [id number] 04/28/2025 7:21 AM EDT [facility] Specimen Type POC Capillary 04/28/2025 7:21 AM EDT [facility] Blood Capillary blood specimen / Unknown 04/28/2025 7:17 AM EDT 04/28/2025 7:21 AM EDT us Greg Lee MD LAB POINT OF CARE TE ST DOCKED DEVICE UNSOLICITED RESULTS Final Result Performing Organization Address City/State/[facility] Co de Phone Number HEALTHCARE LAB [address] [place] [id number] * CT Foot Right w IV Contrast [...] TEST ORDERABLES Final Result Performing Organization Address City/[facility]/ZIP Co de Phone Number BLOOD BANK [address] * Blood Culture (Aerobic/Anaerobet Set) (04/27/2025 10:16 PM EDT) Culture No growth at day 5 05/03/2025 12:01 AM EDT [facility] Blood Venous blood specimen / Unknown Venipuncture / Unknown 04/27/2025 10:16 PM EDT 04/27/2025 10:53 PM EDT us Jessa Law MD LAB MICROBIOLOGY - GENERAL [facility] Final Result [facility] [address] [place] [address] * Blood Culture (Aerobic/Anaerobet Set) (04/27/2025 10:16 PM EDT) Culture No growth at day 5 05/03/2025 12:01 AM EDT [facility] Blood Venous blood specimen / Unknown Venipuncture / Unknown 04/27/2025 10:16 PM EDT 04/27/2025 10:53 PM EDT us Jessa Law MD LAB MICROBIOLOGY - GENERAL SANYA DOMINGUEZ Final Result [facility] [address] [place] [address] * (ABNORMAL) Blood gas, venous (04/27/2025 10:16 PM EDT) pH, Venous 7.47(H) 7.32 - 7.43 LAB HEMATOLOGY METHOD 04/27/2025 10:21 PM EDT [facility] pCO2, Venous 50 40 - 55 mmHg LAB HEMATOLOGY METHOD 04/27/2025 10:21 PM EDT [facility] pO2, Venous 30 25 - 40 mmHg LAB HEMATOLOGY METHOD 04/27/2025 10:21 PM EDT [facility] SO2, Measured, Venous 52(L) 65 - 80 % LAB HEMATOLOGY METHOD 04/27/2025 10:21 PM EDT [facility] Base Excess, Venous 11.6(H) -2.0 - 3.0 mmol/L LAB HEMATOLOGY METHOD 04/27/2025 10:21 PM EDT [facility] Bicarbonate, Calculated, Venous 37(H) 22 - 26 mmol/L LAB HEMATOLOGY METHOD 04/27/2025 10:21 PM EDT [facility] Hematocrit, Whole Blood 30.1(L) 40.0 - 51.0 % LAB HEMATOLOGY METHOD 04/27/2025 10:21 PM EDT [facility] Sodium, Whole Blood 136 136 - 145 mmol/L LAB HEMATOLOGY METHOD 04/27/2025 10:21 PM EDT [facility] Potassium, Whole Blood 2.8(L) 3.6 - 4.9 mmol/L LAB HEMATOLOGY METHOD 04/27/2025 10:21 PM EDT [facility] Chloride, Whole Blood 88(L) 97 - 107 mmol/L LAB HEMATOLOGY METHOD 04/27/2025 10:21 PM EDT [facility] Glucose, Whole Blood 131(H) 74 - 99 mg/dL LAB HEMATOLOGY METHOD 04/27/2025 10:21 PM EDT [facility] Lactate, Venous, Whole Blood 2.0 0.5 - 2.2 mmol/L LAB HEMATOLOGY METHOD 04/27/2025 10:21 PM EDT [facility] Ionized Calcium, Whole Blood 4.2(L) 4.6 - 5.1 mg/dL LAB HEMATOLOGY METHOD 04/27/2025 10:21 PM EDT [facility] Blood Venous blood specimen / Unknown Venipuncture / Unknown 04/27/2025 10:16 PM EDT 04/27/2025 10:20 PM EDT us Jessa Law MD LAB BLOOD ORDERABLES Final Resu lt [facility] [address] [place] [address] * Creatine Kinase, Total, Plasma (04/27/2025 9:37 PM EDT) Creatine Kinase, Plasma 71 49 - 320 U/L 04/28/2025 8:36 AM EDT [facility] Blood Venous blood specimen / Unknown Venipuncture / Unknown 04/27/2025 9:37 PM EDT 04/27/2025 9:40 PM EDT us Sy De La Fuente RISK MANAGEMENT PROFESSIONAL, DNP LAB BLOOD ORDERABLES Fin al Result Performing Organization Address City/[facility]/ZIP Co de Phone Number [facility] [address] [place] [address] * (ABNORMAL) Procalcitonin (04/27/2025 9:37 PM EDT) Procalcitonin, Plasma 0.11(H) <0.09 ng/mL 04/28/2025 8:36 AM EDT [facility] Blood Venous blood specimen / Unknown Venipuncture / Unknown 04/27/2025 9:37 PM EDT 04/27/2025 9:40 PM EDT Narrative [facility] - 04/28/2025 8:36 AM [...] predict 28 day mortality risk. Please consult [email or web address] for more information. Test performed at [facility]. Sy De La Fuente APRN, DNP LAB BLOOD ORDERABLES Fin al Result Performing Organization Address City/[facility]/ZIP Co de Phone Number [facility] [address] [place] [address] * (ABNORMAL) Sed rate, automated (04/27/2025 9:37 PM EDT) Sedimentation Rate >111(H) <15 mm/hr 2024 11:10 PM EDT [facility] Blood Venous blood specimen / Unknown Venipuncture / Unknown 04/27/2025 9:37 PM EDT 04/27/2025 9:40 PM EDT Result [facility] Jessa Law MD LAB BLOOD ORDERABLES Final Resu lt [facility] [address] [place] [address] * (ABNORMAL) Magnesium (04/27/2025 9:37 PM EDT) Magnesium, Plasma 1.2(L) 1.9 - 2.4 mg/dL 04/27/2025 10:11 PM EDT [facility] Blood Venous blood specimen / Unknown Venipuncture / Unknown 04/27/2025 9:37 PM EDT 04/27/2025 9:40 PM EDT Result [facility] Jessa Law MD LAB BLOOD ORDERABLES Final Resu lt Performing Organization Address City/[facility]/ZIP Co de Phone Number [facility] [address] [place] [address] * Beta-Hydroxybutyric Acid (04/27/2025 9:37 PM EDT) Beta-Hydroxybut yric Acid, Plasma 0.23 <=0.27 mmol/L 04/27/2025 10:56 PM EDT [facility] Blood Venous blood specimen / Unknown Venipuncture / Unknown 04/27/2025 9:37 PM EDT 04/27/2025 9:40 PM EDT Jessa Law MD LAB BLOOD ORDERABLES Final Resu lt Performing Organization Address [facility] Co de Phone Number [facility] [address] [place] [address] * ED HIV 1/2 Antibody/Antigen Screen w/Reflex to HIV 1/2 Differentiation (04/27/2025 9:37 PM EDT) Pathologist [facility] HIV 1 & 2 Antibody/Antigen Screen Non Reactive Non Reactive 04/27/2025 10:41 PM EDT [facility] Comment:Screening for HIV 1 & 2 antibodies, and P24 antigen is NONREACTIVE. No confirmatory testing is required. Blood Venous blood specimen / Unknown Venipuncture / Unknown 04/27/2025 9:37 PM EDT 04/27/2025 10:00 PM EDT Madhu Ritchie MD LAB BLOOD ORDERABLES Final Res ult Performing Organization Address City/[facility]/ZIP Co de Phone Number [facility] [address] [place] [address] * Hepatitis C Antibody - ED (04/27/2025 9:37 PM EDT) Pathologist [facility] Hepatitis C Antibody Negative Negative 04/27/2025 10:41 PM EDT [facility] Blood Venous blood specimen / Unknown Venipuncture / Unknown 04/27/2025 9:37 PM EDT 04/27/2025 10:00 PM EDT Madhu Ritchie MD LAB BLOOD ORDERABLES Final Res ult Performing Organization Address [facility]/ZIP Co de Phone Number [facility] [address] [place] [address] * (ABNORMAL) C-reactive protein (04/27/2025 9:37 PM EDT) CRP, Plasma 82.6(H) <=8.0 mg/L 04/27/2025 10:03 PM EDT [facility] Blood Venous blood specimen / Unknown Venipuncture / Unknown 04/27/2025 9:37 PM EDT 04/27/2025 9:40 PM EDT Narrative [facility] - 04/27/2025 10:03 PM EDT This CRP test is appropriate for assessment of infection, systemic inflammation and/or tissue injury. To assess cardiovascular disease risk order high sensitivity CRP (CRPH). us Madhu Ritchie MD LAB BLOOD ORDERABLES Final Res ult Performing Organization Address [facility]/ZIP Co de Phone Number [facility] [address] [place] [address] * (ABNORMAL) CBC w/diff (04/27/2025 9:37 PM EDT) Pathologist [facility] WBC Count 12.00(H) 3.70 - 10.30 10*3/uL LAB HEMATOLOGY METHOD 04/27/2025 9:43 PM EDT [facility] RBC Count 4.48(L) 4.60 - 6.10 10*6/uL LAB HEMATOLOGY METHOD 04/27/2025 9:43 PM EDT [facility] HGB 10.4(L) 13.7 - 17.5 g/dL LAB HEMATOLOGY METHOD 04/27/2025 9:43 PM EDT [facility] HCT 33.3(L) 40.0 - 51.0 % LAB HEMATOLOGY METHOD 04/27/2025 9:43 PM EDT [facility] Platelet Count 282 155 - 369 10*3/uL LAB HEMATOLOGY METHOD 04/27/2025 9:43 PM EDT [facility] MCV 74(L) 79 - 98 fL LAB HEMATOLOGY METHOD 04/27/2025 9:43 PM EDT [facility] MCH 23.2(L) 26.0 - 32.0 pg LAB HEMATOLOGY METHOD 04/27/2025 9:43 PM EDT [facility] MCHC 31.2 30.7 - 35.5 g/dL LAB HEMATOLOGY METHOD 04/27/2025 9:43 PM EDT [facility] RDW 19.4(H) 11.5 - 14.5 % LAB HEMATOLOGY METHOD 04/27/2025 9:43 PM EDT [facility] MPV 8.3(L) 8.8 - 12.5 fL LAB HEMATOLOGY METHOD 04/27/2025 9:43 PM EDT [facility] nRBC 0.0 <=0.0 per 100 WBCs LAB HEMATOLOGY METHOD 04/27/2025 9:43 PM EDT [facility] Differential Type Automated LAB HEMATOLOGY METHOD 04/27/2025 9:43 PM EDT [facility] Neutrophils % 82 % LAB HEMATOLOGY METHOD 04/27/2025 9:43 PM EDT [facility] Lymphocytes % 9 % LAB HEMATOLOGY METHOD 04/27/2025 9:43 PM EDT [facility] Monocytes % 7 % LAB HEMATOLOGY METHOD 04/27/2025 9:43 PM EDT [facility] Eosinophils % 2 % LAB HEMATOLOGY METHOD 04/27/2025 9:43 PM EDT [facility] Basophils % 0 % LAB HEMATOLOGY METHOD 04/27/2025 9:43 PM EDT [facility] Immature Granulocytes % 0 % LAB HEMATOLOGY METHOD 04/27/2025 9:43 PM EDT [facility] Neutrophils Absolute 9.73(H) 1.60 - 6.10 10*3/uL LAB HEMATOLOGY METHOD 04/27/2025 9:43 PM EDT [facility] Lymphocytes Absolute 1.11(L) 1.20 - 3.90 10*3/uL LAB HEMATOLOGY METHOD 04/27/2025 9:43 PM EDT [facility] Monocytes Absolute 0.80 0.30 - 0.90 10*3/uL LAB HEMATOLOGY METHOD 04/27/2025 9:43 PM EDT [facility] Eosinophils Absolute 0.29 0.00 - 0.50 10*3/uL LAB HEMATOLOGY METHOD 04/27/2025 9:43 PM EDT [facility] Basophils Absolute 0.03 0.00 - 0.10 10*3/uL LAB HEMATOLOGY METHOD 04/27/2025 9:43 PM EDT [facility] Immature Granulocytes Absolute 0.04 0.00 - 0.06 10*3/uL LAB HEMATOLOGY METHOD 04/27/2025 9:43 PM EDT [facility] Blood Venous blood specimen / Unknown Venipuncture / Unknown 04/27/2025 9:37 PM EDT 04/27/2025 9:40 PM EDT Narrative [facility] - 04/27/2025 9:43 PM EDT Therapeutic decision making should be based on absolute values, rather than percentages. us Madhu Ritchie MD LAB BLOOD ORDERABLES Final Res ult [facility] [address] [place] [address] * (ABNORMAL) BMP (04/27/2025 9:37 PM EDT) Glucose, Plasma 135(H) 74 - 99 mg/dL 04/27/2025 10:03 PM EDT [facility] BUN, Plasma 8 7 - 21 mg/dL 04/27/2025 10:03 PM EDT [facility] Creatinine, Plasma 0.84 0.70 - 1.20 mg/dL 04/27/2025 10:03 PM EDT [facility] BUN/Creatinine Ratio 10 04/27/2025 10:03 PM EDT [facility] Sodium, Plasma 135(L) 136 - 145 mmol/L 04/27/2025 10:03 PM EDT [facility] Potassium, Plasma 3.3(L) 3.6 - 4.9 mmol/L 04/27/2025 10:03 PM EDT [facility] Chloride, Plasma 90(L) 97 - 107 mmol/L 04/27/2025 10:03 PM EDT [facility] CO2, Plasma 29 22 - 29 mmol/L 04/27/2025 10:03 PM EDT [facility] Anion Gap 16 6 - 16 mmol/L 04/27/2025 10:03 PM EDT [facility] Total Calcium, Plasma 9.0 8.9 - 10.2 mg/dL 04/27/2025 10:03 PM EDT [facility] eGFRcr 108.2 mL/min/1.7 3m*2 04/27/2025 10:03 PM EDT [facility] Comment:Reported eGFRcr in m L/min/1.73m2 is based the CKD-EPI 2020 equation that does not use a race coefficient. Blood Venous blood specimen / Unknown Venipuncture / Unknown 04/27/2025 9:37 PM EDT 04/27/2025 9:40 PM EDT us Madhu Ritchie MD LAB BLOOD ORDERABLES Final Res ult [facility] [address] [place] [address] documented in this encounter Visit Diagnoses Diagnosis Other chronic osteomyelitis of right foot (CMS/[facility]) Diabetic foot ulcer with osteomyelitis Type [...] unspecified Other chronic osteomyelitis of right foot ([facility]/HCC) documented in this encounter Admitting Diagnoses Diagnosis [...] 5 mg, Oral, Daily, First dose on [facility] 05/06/25 at 1245, Until Discontinued, Routine Given [...] 5:00 PM EST 20 mg sodium chloride ([place]) 0.65 % nasal spray 1 spray 1 [...] Deepthi Herman, LOLA)1216 (Given - Provider: Deepthi Herman RN)1729 (Given [...] Kylee Gonzalez RN - Comment: [facility]) insulin regular (HumuLIN R U-500) 500 [...] LOLA) 09 (Given - Provider: Kylee Gonzalez, LOLA - Comment: [facility]) insulin regular (HumuLIN R U-500) 500 UNIT/ML [...] Until Discontinued 0855 (Given - Provider: Deepthi Heramn RN) 0901 (Given - Provider: Deepthi Hemran RN) 0907 (Given - Provider: Kylee Gonzalez RN - Comment: [facility]) perflutren lipid microspheres (Definity) injection [...] Patient/family refused) 1107 (Not Given - Provider: Klyee Gonzalez RN - Reason: Patient/family refused) rivaroxaban [...] Once as needed, 1 dose, Starting on 05/15/25 at 1120, Until Michaelle 05/18/25 at 1348, [...] - Provider: Kylee Gonzalez RN) sodium chloride ([place]) 0.65 % nasal spray 1 spray 1 [...] documented as of this encounter Care Teams Heavy Duty [employer] Relationship Specialty Start Date End Date Malcolm Hayward, [employer] PROF[employer] [address] [place] [address] [id number] PCP - General 09/21/23 documented as of this encounter
[2025-06-12 10:31] LABS: Microscopic,Cath URINE MICROSCOPIC (MICROSCOPIC)
--- OUTSIDE RECORDS SUMMARY | 2025-06-12 11:07 | XMS_ITS | Encounter Summary ---
Author Organization Healthcare Address [address] [id number] Care Team Providers Care Transportation Associate Name Role Phone Malcolm Hayward POULTRY OFFAL ICER Primary Care Provider [phone] Reason for Visit * Reason Comments Med Refill Encounter Details Date Type Department Care Team (Late st Contact Info) Description 07/07/2024 Refill [facility] [address] [place] [address] Mayra Torres PA [address] [address] Type 2 diabetes mellitus (CMS/HCC) [...] Description 06/22/2025 1:40 PM EST Office Visit [facility] [address] [place] [address] Mary Vicente MD [address] [facility] [address] [place] [address] 06/23/2025 8:00 AM EST Office Visit [facility] [address] [facility] 5th Floor Wing [address], [address] [place] [address] Sheila Marcano PA [address] [facility] [address] [place] [address] documented as of this encounter [...] as of this encounter Care Teams Transportation Associate Relationship Specialty Start Date End Date Malcolm Hayward APRN [address] [place] [address] PCP - General 09/21/23 documented as of this encounter
--- OUTSIDE RECORDS SUMMARY | 2025-06-12 11:07 | XMS_ITS | Encounter Summary ---
Author Organization Healthcare Address [address] [id number] Care Team Providers Care Pig Casting Machine Operator Name Role Phone Malcolm Hayward NUCLEAR WASTE PROCESS OPERATOR Primary Care Provider [phone] Reason for Visit * Reason Comments Med Refill Encounter Details Date Type Department Care Team (Late st Contact Info) Description 04/19/2025 Refill [facility] [address] [place] [address] Divine Archer, NUCLEAR WASTE PROCESS OPERATOR [address] [facility] [address] [place] [address] Type 2 diabetes mellitus Social [...] any time in the past 12 m [facility], were you homeless or [...] Description 06/22/2025 1:40 PM EST Office Visit [facility] [address] 5th Floor [address] [place] [address] Mary Vicente MD [address] [place] [address] 06/23/2025 8:00 AM EST Office Visit [facility] [address] 5th Floor [address] [place] [address] Sheila Marcano PA [address] [place] [address] documented as of this encounter [...] documented as of this encounter Care Teams Pig Casting Machine Operator Relationship Specialty Start Date End Date Malcolm Hayward APRN [address] [place] [address] PCP - General 09/21/23 documented as of this encounter
--- OUTSIDE RECORDS SUMMARY | 2025-06-12 11:08 | XMS_ITS | Referral Summary ---
Author Organization [employer] ([place], [place], [place], [place], [place]) Address [address] [place] [address] Care Team Providers Care Track Template Maker Name Role Phone Malcolm Hayward APRN Primary Care Provider [phone] Allergies No known active allergies Medications atorvastatin [...] A B BLUE CROSS/BLUE SHIELD Care Teams Track Template Maker Relationship Specialty Start Date End Date Malcolm Hayward, ADALGISA [address] [place] [address] PCP - General Nurse Practitioner 12/20/24
--- OUTSIDE RECORDS SUMMARY | 2025-06-12 11:08 | XMS_ITS | Clinical Summary ---
Author Organization [employer] ([place], [place], [place], [place], [place]) Address [address] [place] [address] Care Team Providers Care Electric Serviceman Name Role Phone Malcolm Hayward APRN Primary Care Provider [phone] Allergies No known active allergies Medications atorvastatin [...] 04/26/2020, 12/24/2016 Insurance MEDICARE PART A B /[facility] Care Teams Electric Serviceman Relationship Specialty Start Date End Date Malcolm Hayward APRN [address] [id number] PCP - General Nurse Practitioner 12/20/24
--- OUTSIDE RECORDS SUMMARY | 2025-06-12 11:09 | XMS_ITS | Encounter Summary ---
Author Organization Healthcare Address [address] [id number] Care Team Providers Care Equipment Service Associate Name Role Phone Malcolm Hayward ADALGISA Primary Care Provider [phone] Reason for Visit * Reason Onset Date Comments HCN Clinical Concern/Question 06/12/2025 Encounter Details Date Type Department Care Team (Late st Contact Info) Description 06/12/2025 Telephone [facility] [address] [facility] 5th Floor [address] [place] [address] Mary Vicente MD [address] [facility] [address] [place] [address] HCN Clinical Concern/Question Social History [...] in a assisted (including now)? No 04/28/2025 [facility] Utilities Answer Date Recorded In [...] Telephone Encounter - Deepthi Tejada RN - 06/12/2025 9:42 AM EST Addressed via patient advice request. RN to call after Dr. Vicente reviews lab report. * Telephone Encounter - Breonna Solis - 06/12/2025 8:03 AM EST Clinical Concern/Question Reason for Call: Spouse is calling said that his wound is worse and needs to see about coming in juan. He has a bad infection and smell coming from it. Has sent information in my chart about it , labreport Best contact number: [phone] (mobile) Optimal time of day to reach [...] Description 06/22/2025 1:40 PM EST Office Visit [facility] [address] [facility] 5th Floor [address] [place] [address] Mary Vicente MD [address] [facility] [address] [place] [address] 06/23/2025 8:00 AM EST Office Visit [facility] [address] [place] [address] Sheila Marcano PA [address] [place] [address] documented as of this encounter Visit Diagnoses [...] documented as of this encounter Care Teams Equipment Service Associate Relationship Specialty Start Date End Date Malcolm Hayward APRN [address] [facility] [place] [address] PCP - General 09/21/23 documented as of this encounter
--- OUTSIDE RECORDS SUMMARY | 2025-06-12 11:10 | XMS_ITS | Encounter Summary ---
Author Organization [facility] Address [address] [id number] Care Team Providers Care Neurology Technologist Name Role Phone Malcolm Hayward APRN Primary Care Provider [phone] Encounter Details Date Type Department Care Team [...] living in a fci (including now)? No 04/28/2025 [facility] Utilities Answer Date Recorded In [...] Suicidal Behavior (Lifetime) No 8:00 AM Deepthi Galeano RN documented as of this encounter Plan of Treatment Upcoming Encounters Date Type Department Care Team (Late st Contact Info) Description 06/22/2025 1:40 PM EST Office Visit [place] [facility] [address] [facility] 5th Floor [address] [place] [address] Mary Vicente MD [address] [facility] [address] [place] [address] 06/23/2025 8:00 AM EST Office Visit [place] [facility] [address] 5[address] [place] [address] Sheila Marcano, BLAS [address] [place] [address] documented as of this encounter [...] documented as of this encounter Care Teams Neurology Technologist Relationship Specialty Start Date End Date Malcolm Hayward APRN [address] [place] [address] PCP - General 09/21/23 documented as of this encounter
--- OUTSIDE RECORDS SUMMARY | 2025-06-12 11:10 | XMS_ITS | Encounter Summary ---
Author Organization Healthcare Address [address] [id number] Care Team Providers Care Industrial Relations Specialist Name Role Phone Malcolm Hayward ADALGISA Primary Care Provider [phone] Encounter Details Date Type Department Care Team ([facility] st Contact Info) Description 05/29/2025 Telephone [facility] [address] [place] [address] Pcp, No [address] [place] [address] Social History Tobacco Use Types Packs/Day Years [...] in a mcfp (including now)? No 04/28/2025 [facility] Utilities Answer Date Recorded In the [...] Please call with updates Best contact number: [phone] (mobile) Optimal time of day to reach caller: ANYTIME Additional comments/information from caller: None Note: Please do not reply to this message. Follow-up communication and further actions as a result of this message need to be communicated with the patient directly, if the patient is not active onMyChart. If the patient is active on MyChart, they will receive notification of the communication/outcome via [employer]. documented in this encounter Plan of Treatment Upcoming Encounters Date Type Department Care Team (Late st Contact Info) Description 06/22/2025 1:40 PM EST Office Visit [facility] [address] 5th [address] [place] [address] Mary Vicente MD [address] [place] [address] 06/23/2025 8:00 AM EST Office Visit [facility] [address] [facility] 5th Floor [address] [place] [address] Sheila Marcano PA [address] [place] [address] documented as of this encounter [...] Start Date End Date Malcolm Hayward APRN [address] [place] [address] PCP - General 09/21/23 documented as of this encounter
--- OUTSIDE RECORDS SUMMARY | 2025-06-12 11:10 | XMS_ITS | Encounter Summary ---
Author Organization [facility] Address [address] [id number] Care Team Providers Care Box Car Washer Name Role Phone Malcolm Hayward APRN Primary Care Provider [phone] Encounter Details Date Type Department Care Team [...] in a residential (including now)? No 04/28/2025 [facility] Utilities Answer Date Recorded In the [...] [place] [facility] [address] [facility] 5th Floor [address] [place] [address] Mary Vicente MD [address] [facility] [address] [place] [address] 06/23/2025 8:00 AM EST Office Visit [place] [facility] [address] 5th Floor [address] [place] [address] Sheila Marcano, BLAS [address] [place] [address] documented as of this encounter [...] documented as of this encounter Care Teams Box Car Washer Relationship Specialty Start Date End Date Malcolm Hayward APRN [address] [place] [address] PCP - General 09/21/23 documented as of this encounter
--- OUTSIDE RECORDS SUMMARY | 2025-06-12 11:10 | XMS_ITS | Encounter Summary ---
Author Organization Healthcare Address [address] [place] [address] Care Team Providers Care Real Estate Associate Name Role Phone Malcolm Hayward ADALGISA Primary Care Provider [phone] Encounter Details Date Type Department Care Team ([facility] st Contact Info) Description 05/01/2025 Orders Only External Location [address] [place] [address] Provider, External Social History Tobacco Use Types [...] a care home (including now)? No 04/28/2025 [facility] Utilities Answer Date Recorded In the [...] [place] [facility] [address] 5th [address] [place] [address] Mary Vicente MD [address] [place] [address] 06/23/2025 8:00 AM EST Office Visit [place] [facility] [address] 5th [address] [place] [address] Sheila Marcano PA [address] [facility] [address] [place] [address] documented as of this encounter [...] documented as of this encounter Care Teams Real Estate Associate Relationship Specialty Start Date End Date Malcolm Hayward APRN [address] [place] [address] PCP - General 09/21/23 documented as of this encounter
--- OUTSIDE RECORDS SUMMARY | 2025-06-12 11:11 | XMS_ITS | Encounter Summary ---
Author Organization [facility] Address [address] [id number] Care Team Providers Care Door Builder Name Role Phone Malcolm Hayward APRN Primary Care Provider [phone] Encounter Details Date Type Department Care Team [...] living in a longterm (including now)? No 04/28/2025 [facility] Utilities Answer Date Recorded In the [...] [facility] [address] [facility] 5th Floor [address] [place] [address] Mary Vicente MD [address] [place] [address] 06/23/2025 8:00 AM EST Office Visit [place] [facility] [address] 5th Floor [address] [place] [address] Sheila Marcano PA [address] [place] [address] documented as of this encounter [...] documented as of this encounter Care Teams Door Builder Relationship Specialty Start Date End Date Malcolm Hayward APRN [address] [place] [address] PCP - General 09/21/23 documented as of this encounter
--- OUTSIDE RECORDS SUMMARY | 2025-06-12 11:11 | XMS_ITS | Encounter Summary ---
Author Organization [facility] Address [address] [id number] Care Team Providers Care Tile Ditcher Name Role Phone Malcolm Hayward ADALGISA Primary Care Provider [phone] Reason for Visit * Reason Onset Date Comments HCN Clinical Concern/Question 05/19/2025 [facility] Status Update Call #1 05/19/2025 Encounter Details Date Type Department Care Team (Late st Contact Info) Description 05/19/2025 Telephone [place] [facility] [address] [facility] 5th Floor [address] [place] [address] Sheila Marcano, BLAS [address] [facility] [address] [place] [address] HCN Clinical Concern/Question; HCN Status [...] living in a fpc (including now)? 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 Praveen denied any other needs or concerns. [...] the initial request. Best contact number: Other: [phone] Optimal time of day to reach caller: [...] will receive notification of the communication/outcome via iStoryTimehart. * Telephone Encounter - Diane Daniels - 05/19/2025 2:11 PM EST Clinical Concern/Question Reason for Call: Praveen from [facility] is calling to see if the patient could get a off loading boot so he could be moved to their facility or if he has to wait until his next carlos a with the clinic on 05/30/25. Please call praveen back with info. Thank you Best contact number: Other: [phone] Optimal time of day to reach caller: [...] Description 06/22/2025 1:40 PM EST Office Visit [facility] [address] [facility] 5th Floor [address] [place] [address] Mary Vicente MD [address] [place] [address] 06/23/2025 8:00 AM EST Office Visit [facility] [address] [facility] 5th Floor [address] [place] [address] Sheila Marcano, PA [address] [place] [address] documented as of this encounter [...] documented as of this encounter Care Teams Tile Ditcher Relationship Specialty Start Date End Date Malcolm Hayward APRN [address] [place] [address] PCP - General 09/21/23 documented as of this encounter
--- OUTSIDE RECORDS SUMMARY | 2025-06-12 11:11 | XMS_ITS | Encounter Summary ---
Author Organization [facility] Address [address] [id number] Care Team Providers Care Director Imaging Name Role Phone Malcolm Hayward APRN Primary Care Provider [phone] Encounter Details Date Type Department Care Team [...] time in the past 12 [address] [facility], were you homeless or living in a snf (including now)? No 04/28/2025 [facility] Utilities Answer Date Recorded In [...] Description 06/22/2025 1:40 PM EST Office Visit [facility] [address] [place] [address] Mary Vicente MD [address] [facility] [address] [place] [address] 06/23/2025 8:00 AM EST Office Visit [facility] [address] [facility] 5th Floor [address] [place] [address] Sheila Marcano PA [address] [facility] [address] [place] [address] documented as of this encounter [...] as of this encounter Care Teams Director Imaging Relationship Specialty Start Date End Date Malcolm Hayward APRN [address] [place] [address] PCP - General 09/21/23 documented as of this encounter
--- OUTSIDE RECORDS SUMMARY | 2025-06-12 11:11 | XMS_ITS | Encounter Summary ---
Author Organization [facility] Address [address] [place] [address] Care Team Providers Care Supervisor Intelligence Analyst Name Role Phone Malcolm Hayward ADALGISA Primary Care Provider [phone] Encounter Details Date Type Department Care Team (Late st Contact Info) Description 05/24/2025 Telephone Vascular Surgery [address] [place] [address] Rohith Ramires, PIECE DYE WORKER None Social History Tobacco Use Types Packs/Day Years [...] living in a alf (including now)? No 04/28/2025 [facility] Utilities Answer Date Recorded In the [...] Description 06/22/2025 1:40 PM EST Office Visit [facility] [address] 5th Floor [address] [place] [address] Mary Vicente MD [address] [place] [address] 06/23/2025 8:00 AM EST Office Visit [facility] [address] 5th Floor [address] [place] [address] Sheila Marcano PA [address] [place] [address] documented as of this encounter [...] documented as of this encounter Care Teams Supervisor Intelligence Analyst Relationship Specialty Start Date End Date Malcolm Hayward APRN [address] [place] [address] PCP - General 09/21/23 documented as of this encounter
--- OUTSIDE RECORDS SUMMARY | 2025-06-12 11:11 | XMS_ITS | Clinical Summary ---
Author Organization [facility] Address [address] [place] [address] Care Team Providers Care Patient Financial Specialist Name Role Phone Malcolm Hayward ADALGISA Primary Care Provider [phone] Allergies Active Allergy Reactions Criticality Noted Date [...] tablet Take 1 tablet by mouth daily. 020 Active venlafaxine XR (Effoxor-XR) 150 MG 24 [...] g 3 Active Insulin Pen Needle ([place]) 31G X 5 MM [facility] [place] TO INJECT INSULIN 3 TIMES PER [...] a day. 022 2024 Discontinued HYDROcodone-aceta minophen (Alpine) 10-325 MG tablet Take 1 tablet by mouth every 6 hours as needed. 2024 Discontinued insulin regular (HumuLIN R,NovoLIN R) 100 UNIT/ML injection vialIndications:T ype 2 Diabetes Mellitus Inject 200 Units under the skin 2 times a day with meals. 2024 Discontinued HYDROcodone-aceta minophen (Alpine) 10-325 MG tablet Take 1 tablet by [...] Encounters Date Type Department Care Team Description 06/12/2025 Telephone [facility] [address] [place] [address] Mary Vicente MD HCN Clinical Concern/Question 05/29/[address] [facility] [address] [place] [id number] Pcp, No 05/26/2025 Telephone Wound Care [address] [place] [address] Sheila Marcano PA 05/24/2025 Telephone [facility] [address] [place] [address] Sheila Marcano PA HCN - Patient Message (Call request ); HCN Status Update Call #2 05/24/2025 Telephone Vascular Surgery [address] [place] [address] Rohith Ramires RN 05/24/2025 Travel 05/19/2025 Telephone [facility] [address] [place] [address] Sheila Marcano PA HCN Clinical Concern/Question; HCN Status Update Call #1 05/18/2025 Travel 05/17/2025 Travel 05/01/2025 7:30 AM EDT - 05/01/2025 8:50 AM EDT Surgery [facility] [address] [place] [phone] Mary Vicente MD AMPUTATION,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 4th 05/01/2025 7:28 AM EDT Anesthesia Event [facility] [address] [place] [address] Gilberto Rivera MD Ford, Richard F, MD 05/01/2025 Orders Only External Location [address] [place] [phone] Provider, External 05/01/2025 Travel 04/28/2025 Travel 04/27/2025 9:29 PM EDT - 05/18/2025 11:48 AM EST Hospital Encounter [facility] [address] [place] [address] Jessa Law MD Chapman, Steven B, Greg Armenta MD Oo, Yadana, MD Gerrard, Miranda E, MD Ramay, Tehreem K, MD Bhatti, Wily RDO Other chronic osteomyelitis of right foot (CMS/HCC) (Primary Dx); Diabetic foot ulcer with osteomyelitis; Uncontrolled type 2 diabetes mellitus with hyperglycemia, with long-term current use of insulin; Type 2 diabetes mellitus with diabetic peripheral angiopathy without gangrene, with long-term current use of insulin Discharge Disposition: Retirement Facility 04/27/2025 Travel 04/19/2025 Refill [facility] Endocrinology [address] [place] [address] Divine Archer, ADALGISA Type 2 diabetes mellitus from Last 3 [...] a care home (including now)? No 04/28/2025 [place] [facility] Answer Date Recorded In the past [...] Description 06/22/2025 1:40 PM EST Office Visit [facility] [address] 5[address] [place] [address] Mary Vicente MD [address] [facility] [address] [place] [address] 06/23/2025 8:00 AM EST Office [facility] [address] 5[address] [place] [address] Sheila Marcano, BLAS [address] [place] [address] Health Maintenance Due Date Last Done Comments [facility]-Medicare Annual Wellness (AWV) 1977 [facility]-Infant/Child/Adol SDOH Screenings 1977 Diabetes: Dental Exam 1987 [facility]-DTaP,Tdap,and Td Vaccines (1 - Tdap) 1996 [facility]-Hepatitis B Vaccines (1 of 3 - 19+ 3-dose series) 1996 CT Colonography 2022 Colonoscopy 2022 FIT-DNA 2022 FIT 2022 FOBT 2022 Sigmoidoscopy 2022 [facility]-Colorectal Cancer Screening 2022 [id number] Vaccine (3 - season) 2025 02/22/2021, 01/25/2021 [facility]-Influenza Vaccine (#1) [...] - 99 mg/dL 05/18/2025 8:11 AM EST [facility] Comment:Accuracy of a glucos e [...] for testing. Comment 05/18/2025 8:11 AM EST [facility] Fiber Optic Assembly Worker ID Char Hinojosa 05/18/2025 8:11 AM EST [facility] Device ID [id number] 05/18/2025 8:11 AM EST [facility] Specimen Type POC Capillary 05/18/2025 8:11 AM EST [facility] Blood Capillary blood specimen / Unknown 05/18/2025 8:09 AM EST 05/18/2025 8:11 AM EST us Umar R Jay Jay DO LAB POINT OF CARE TE ST DOCKED DEVICE UNSOLICITED RESULTS Final Result [facility] [address] [place] [address] * ECHO, ADULT TRANSTHORACIC COMPLETE W/ CONTRAST [...] is no recent study available for direct [id number] comparison. Left Ventricle The left ventricle is [...] is no recent study available for direct [id number] comparison. Umar R Jay Jay DO CV ECHO PROCEDURES [...] QTC Interval 486 ms MUSE ECG P [place] 30 degrees MUSE ECG R [place] -35 degrees MUSE ECG T Wave [place] -5 degrees MUSE ECG Diagnosis Sinus bradycardia [...] PM EST 05/18/2025 12:15 AM EST Wily Mensah Jay Jay DO ECG ORDERABLES Final Result MUSE ECG * (ABNORMAL) CBC and Differential (05/16/2025 4:08 AM EST) Only the most recent of12 resultswithin the time period is included. WBC Count 7.97 3.70 - 10.30 10*3/uL LAB HEMATOLOGY METHOD 05/16/2025 4:26 AM [facility] RBC Count 4.27(L) 4.60 - 6.10 10*6/uL LAB HEMATOLOGY METHOD 05/16/2025 4:26 AM [facility] HGB 9.5(L) 13.7 - 17.5 g/dL LAB HEMATOLOGY METHOD 05/16/2025 4:26 AM [facility] HCT 31.6(L) 40.0 - 51.0 % LAB HEMATOLOGY METHOD 05/16/2025 4:26 AM [facility] Platelet Count 264 155 - 369 10*3/uL LAB HEMATOLOGY METHOD 05/16/2025 4:26 AM [facility] MCV 74(L) 79 - 98 fL LAB HEMATOLOGY METHOD 05/16/2025 4:26 AM [facility] MCH 22.2(L) 26.0 - 32.0 pg LAB HEMATOLOGY METHOD 05/16/2025 4:26 AM [facility] MCHC 30.1(L) 30.7 - 35.5 g/dL LAB HEMATOLOGY METHOD 05/16/2025 4:26 AM [facility] RDW 17.9(H) 11.5 - 14.5 % LAB HEMATOLOGY METHOD 05/16/2025 4:26 AM [facility] MPV 9.2 8.8 - 12.5 fL LAB HEMATOLOGY METHOD 05/16/2025 4:26 AM [facility] nRBC 0.0 <=0.0 per 100 WBCs LAB HEMATOLOGY METHOD 05/16/2025 4:26 AM [facility] Differential Type Automated LAB HEMATOLOGY METHOD 05/16/2025 4:26 AM [facility] Neutrophils % 67 % LAB HEMATOLOGY METHOD 05/16/2025 4:26 AM [facility] Lymphocytes % 16 % LAB HEMATOLOGY METHOD 05/16/2025 4:26 AM [facility] Monocytes % 12 % LAB HEMATOLOGY METHOD 05/16/2025 4:26 AM [facility] Eosinophils % 3 % LAB HEMATOLOGY METHOD 05/16/2025 4:26 AM [facility] Basophils % 1 % LAB HEMATOLOGY METHOD 05/16/2025 4:26 AM [facility] Immature Granulocytes % 1 % LAB HEMATOLOGY METHOD 05/16/2025 4:26 AM [facility] Neutrophils Absolute 5.39 1.60 - 6.10 10*3/uL LAB HEMATOLOGY METHOD 05/16/2025 4:26 AM [facility] Lymphocytes Absolute 1.30 1.20 - 3.90 10*3/uL LAB HEMATOLOGY METHOD 05/16/2025 4:26 AM [facility] Monocytes Absolute 0.93(H) 0.30 - 0.90 10*3/uL LAB HEMATOLOGY METHOD 05/16/2025 4:26 AM [facility] Eosinophils Absolute 0.26 0.00 - 0.50 10*3/uL LAB HEMATOLOGY METHOD 05/16/2025 4:26 AM [facility] Basophils Absolute 0.05 0.00 - 0.10 10*3/uL LAB HEMATOLOGY METHOD 05/16/2025 4:26 AM [facility] Immature Granulocytes Absolute 0.04 0.00 - 0.06 10*3/uL LAB HEMATOLOGY METHOD 05/16/2025 4:26 AM [facility] Blood Venous blood specimen / Unknown Venipuncture / Unknown 05/16/2025 4:08 AM EST 05/16/2025 4:17 AM EST Narrative [facility] - 05/16/2025 4:26 AM EST Therapeutic decision making should be based on absolute values, rather than percentages. us Selin Lee MD LAB BLOOD ORDERABLES Final Re sult Performing Organization Address [facility]/ZIP Co de Phone Number [facility] [address] [place] [address] * Phosphorus, Plasma (05/16/2025 4:08 AM EST) Only the most recent of11 resultswithin the time period is included. Phosphorus, Plasma 3.7 2.5 - 4.5 mg/dL 05/16/2025 4:48 AM EST [facility] Blood Venous blood specimen / Unknown Venipuncture / Unknown 05/16/2025 4:08 AM EST 05/16/2025 4:16 AM EST us Selin Lee MD LAB BLOOD ORDERABLES Final Re sult Performing Organization Address [facility] Co de Phone Number [facility] [address] [place] [address] * (ABNORMAL) Magnesium, Plasma (05/16/2025 4:08 AM EST) Only the most recent of13 resultswithin the time period is included. Magnesium, Plasma 1.8(L) 1.9 - 2.4 mg/dL 05/16/2025 4:48 AM EST [facility] Blood Venous blood specimen / Unknown Venipuncture / Unknown 05/16/2025 4:08 AM EST 05/16/2025 4:16 AM EST us Selin Lee MD LAB BLOOD ORDERABLES Final Re sult Performing Organization Address City/[facility]/ZIP Co de Phone Number [facility] [address] [place] [address] * (ABNORMAL) Basic Metabolic Panel, Plasma (05/16/2025 4:08 AM EST) Only the most recent of12 resultswithin the time period is included. Glucose, Plasma 168(H) 74 - 99 mg/dL 05/16/2025 4:48 AM EST [facility] BUN, Plasma 19 7 - 21 mg/dL 05/16/2025 4:48 AM EST [facility] Creatinine, Plasma 0.86 0.70 - 1.20 mg/dL 05/16/2025 4:48 AM EST [facility] BUN/Creatinine Ratio 22 05/16/2025 4:48 AM EST [facility] Sodium, Plasma 131(L) 136 - 145 mmol/L 05/16/2025 4:48 AM EST [facility] Potassium, Plasma 3.6 3.6 - 4.9 mmol/L 05/16/2025 4:48 AM EST [facility] Chloride, Plasma 88(L) 97 - 107 mmol/L 05/16/2025 4:48 AM EST [facility] CO2, Plasma 34(H) 22 - 29 mmol/L 05/16/2025 4:48 AM EST [facility] Anion Gap 9 6 - 16 mmol/L 05/16/2025 4:48 AM EST [facility] Total Calcium, Plasma 9.3 8.9 - 10.2 mg/dL 05/16/2025 4:48 AM EST [facility] eGFRcr 107.5 mL/min/1.7 3m*2 05/16/2025 4:48 AM EST [facility] Comment:Reported eGFRcr in m L/min/1.73m2 is based the CKD-EPI 2020 equation that does not use a race coefficient. Blood Venous blood specimen / Unknown Venipuncture / Unknown 05/16/2025 4:08 AM EST 05/16/2025 4:16 AM EST us Selin Lee MD LAB BLOOD ORDERABLES Final Re sult [facility] [address] [place] [address] * PSA, diagnostic (05/06/2025 12:27 PM EDT) PSA, Diagnostic, Serum 0.03 0.00 - 2.50 ng/mL 05/06/2025 1:10 PM EDT [facility] Blood Venous blood specimen / Unknown Venipuncture / Unknown 05/06/2025 12:27 PM EDT 05/06/2025 12:33 PM EDT Narrative [facility] - 05/06/2025 1:10 PM EDT Performed by Bella electrochemiluminescent immunoassay which is standardized against the PSA [place] Reference Standard (WHO 96/670). Results obtained with different test methods or kits cannot be used interchangeably. Diane Guzman MD LAB BLOOD ORDERABLES Final Result Performing Organization Address City/[facility]/ZIP Co de Phone Number [facility] [address] [place] [address] * Creatine Kinase (CK), Total (05/03/2025 6:22 PM EDT) Only the most recent of4 resultswithin the time period is included. Creatine Kinase, Plasma 54 49 - 320 U/L 05/03/2025 7:13 PM EDT [facility] Blood Venous blood specimen / Unknown Venipuncture / Unknown 05/03/2025 6:22 PM EDT 05/03/2025 6:38 PM EDT Diane Guzman MD LAB BLOOD ORDERABLES Final Result Performing Organization Address City/[facility]/ZIP Co de Phone Number [facility] [address] [place] [address] * (ABNORMAL) Comprehensive metabolic panel (05/03/2025 6:22 PM EDT) Only the most recent of2 resultswithin the time period is included. Glucose, Plasma 290(H) 74 - 99 mg/dL 05/03/2025 7:13 PM EDT [facility] BUN, Plasma 14 7 - 21 mg/dL 05/03/2025 7:13 PM EDT [facility] Creatinine, Plasma 0.71 0.70 - 1.20 mg/dL 05/03/2025 7:13 PM EDT [facility] BUN/Creatinine Ratio 20 05/03/2025 7:13 PM EDT [facility] Sodium, Plasma 133(L) 136 - 145 mmol/L 05/03/2025 7:13 PM EDT [facility] Potassium, Plasma 3.6 3.6 - 4.9 mmol/L 05/03/2025 7:13 PM EDT [facility] Chloride, Plasma 87(L) 97 - 107 mmol/L 05/03/2025 7:13 PM EDT [facility] CO2, Plasma 37(H) 22 - 29 mmol/L 05/03/2025 7:13 PM EDT [facility] Anion Gap 9 6 - 16 mmol/L 05/03/2025 7:13 PM EDT [facility] Total Calcium, Plasma 9.4 8.9 - 10.2 mg/dL 05/03/2025 7:13 PM EDT [facility] Total Protein 8.0(H) 6.3 - 7.9 g/dL 05/03/2025 7:13 PM EDT [facility] Albumin, Plasma 3.6 3.5 - 5.2 g/dL 05/03/2025 7:13 PM EDT [facility] AST, Plasma 18 10 - 50 U/L 05/03/2025 7:13 PM EDT [facility] ALT, Plasma 12 10 - 50 U/L 05/03/2025 7:13 PM EDT [facility] Alkaline Phosphatase, Plasma 64 40 - 115 U/L 05/03/2025 7:13 PM EDT [facility] Total Bilirubin, Plasma 0.7 0.2 - 1.1 mg/dL 05/03/2025 7:13 PM EDT [facility] eGFRcr 113.9 mL/min/1.7 3m*2 05/03/2025 7:13 PM EDT [facility] Comment:Reported eGFRcr in m L/min/1.73m2 is based the CKD-EPI 2020 equation that does not use a race coefficient. Blood Venous blood specimen / Unknown Venipuncture / Unknown 05/03/2025 6:22 PM EDT 05/03/2025 6:38 PM EDT us Diane Guzman MD LAB BLOOD ORDERABLES Final Result Performing Organization Address City/[facility] Co de Phone Number [facility] [address] [place] [address] * Hepatitis B Surface Antibody, Quantitative (05/03/2025 3:16 AM EDT) Hepatitis B Surface Antibody, Quantitative <8.00 NonReactiv e: <8, Grayzone: 8 - <12, Reactive: >= 12 mIU/mL 05/03/2025 4:28 AM EDT [facility] Comment: Nonreactive. Individual is considered not immune to HBV infection. Blood Venous blood specimen / Unknown Venipuncture / Unknown 05/03/2025 3:16 AM EDT 05/03/2025 3:24 AM EDT us Diane Guzman MD LAB BLOOD ORDERABLES Final Result Performing Organization Address [facility] Co de Phone Number [facility] [address] [place] [address] * Hepatitis A Antibody IgG (05/03/2025 3:16 AM EDT) Hepatitis A Antibody IgG Negative Negative 05/03/2025 4:28 AM EDT [facility] Blood Venous blood specimen / Unknown Venipuncture / Unknown 05/03/2025 3:16 AM EDT 05/03/2025 3:24 AM EDT us Diane Guzman MD LAB BLOOD ORDERABLES Final Result Performing Organization Address City/[facility]/ZIP Co de Phone Number [facility] [address] [place] [address] * Hepatitis B Core Total Antibody IgG,IgM (05/03/2025 3:16 AM EDT) Hepatitis B Core Total Antibody IgG,IgM Negative Negative 05/03/2025 4:28 AM EDT [facility] Blood Venous blood specimen / Unknown Venipuncture / Unknown 05/03/2025 3:16 AM EDT 05/03/2025 3:24 AM EDT Diane Guzman MD LAB BLOOD ORDERABLES Final Result [facility] [address] [place] [address] * Hepatitis B Surface Antigen (05/03/2025 3:16 AM EDT) [facility] Hepatitis B Surf Antigen Negative Negative 05/03/2025 4:28 AM EDT [facility] Blood Venous blood specimen / Unknown Venipuncture / Unknown 05/03/2025 3:16 AM EDT 05/03/2025 3:24 AM EDT Diane Guzman MD LAB BLOOD ORDERABLES Final Result Performing Organization Address City/[facility]/ZIP Co de Phone Number [facility] [address] [place] [address] * Nasopharyngeal Respiratory Panel (05/02/2025 1:05 PM EDT) [facility] Nasopharyngeal Respiratory PCR Interpretation Not Detected for all analytes Not Detected for all analytes 05/02/2025 3:14 PM EDT [facility] Swab Nasopharyngeal structure / Unknown Non-blood Collection / Unknown 05/02/2025 1:05 PM EDT 05/02/2025 1:12 PM EDT Narrative [facility] - 05/02/2025 3:14 PM [...] Respiratory PCR Panel is performed using the [employer] instrument. This test is FDA approved for use with Nasopharyngeal swabs only. This test is used for clinical purposes. It should not be regarded as investigational or for research. The [facility] Clinical Microbiology [facility] is certified under the Clinical Laboratory Improvement Amendments of 1988 (CLIA-88) as qualified to perform high complexity clinical laboratory testing. Diane Guzman MD LAB MICROBIOLOGY - GENERAL ORDERABLES Final Result [facility] [address] [place] [address] * Surgical Pathology Exam (05/01/2025 8:13 AM EDT) Case Report Surgical Pathology Case: [id number] Authorizing Provider: Mray Vicente MD Collected: 05/01/2025 0813 Ordering Location: [facility] Received: 05/01/2025 09 Pathologist: Vidya Ly MD Specimens: A) - Toe, Right, R 5th toe B) - Toe, Right, R 5th toe margin 05/09/2025 9:56 AM EDT [facility] Correction History Case amended to provide diagnosis after final decal sections received 05/09/2025 9:56 AM EDT [facility] Comment:These results have b een appended to a previously final verified report. Final Diagnosis A. RIGHT FIFTH TOE, AMPUTATION: - ULCER WITH SUPPURATIVE INFLAMMATION, GANGRENOUS NECROSIS, AND UNDERLYING ACUTE OSTEOMYELITIS. B. RIGHT FIFTH TOE MARGIN, RESECTION: - NO ACUTE OSTEOMYELITIS IDENTIFIED. 05/09/2025 9:56 AM EDT [facility] Amendment electronically signed by Vidya yL MD on 05/09/2025 at 0956 EDT at 1233 EDT Comment:Corrected result: Pr eviously reported as [Previous value contains rich text formatting which cannot be displayed here] (see Result History) on 05/05/2025 at 1233 EDT. Clinical Information Other chronic osteomyelitis of right foot (CMS/HCC) [M86.671] 05/09/2025 9:56 AM EDT [facility] Gross Description A. R [...] The wound extends into the underlying bone. Chief Legal Officer sections are submitted as follows: A1-A2: Necrotic lateral skin A3: Bone underlying gaping wound, following decalcification A4: Bone margin, following decalcification BLAS Kwok ([facility]) B. R 5TH TOE MARGIN The specimen is received fresh and placed in formalin, labeled R 5th toe MARGIN , and consists of a 2.8 x 2.8 x 0.6 cm aggregate of hemorrhagic bony fragments. The specimen is entirely submitted in cassette B1, following decalcification. Cold Time: 25m BLAS Kwok ([facility]) 05/09/2025 9:56 AM EDT [facility] Note: 05/09/2025 9:56 AM EDT [facility] Comment:Corrected result: Pr eviously [...] LAB PATHOLOGY ORDERABLES Edited Result - Final [facility] [address] [place] [address] * PB POINT OF CARE IMAGING PLACEHOLDER [...] Final Result Performing Organization Address [facility] Co de Phone Number BLOOD BANK [address] [place] [address], [place] * POC Imaging (05/01/2025) Anatomical Region Laterality Modality Pelvis Other 05/01/2025 us External Provider IMG POINT OF CARE ULTRASOUND E dited Result - Final * (ABNORMAL) Iron & Total Iron Binding Capacity, Plasma (Includes Transferrin) (04/29/2025 3:04 AM EDT) Iron, Plasma 36(L) 50 - 170 ug/dL 04/29/2025 3:55 AM EDT [facility] Transferrin, Plasma 197(L) 200 - 360 mg/dL 04/29/2025 3:55 AM EDT [facility] Total Iron Binding Capacity, Plasma 246 240 - 450 ug/mL 04/29/2025 3:55 AM EDT [facility] Transferrin Saturation 15 14 - 50 % 04/29/2025 3:55 AM EDT [facility] Blood Venous blood specimen / Unknown Venipuncture / Unknown 04/29/2025 3:04 AM EDT 04/29/2025 3:19 AM EDT us Sy De La Fuente APRN, DENISE LAB BLOOD ORDERABLES Fin al Result Performing Organization Address [facility] de Phone Number [facility] [address] [place] [address] * TSH (04/29/2025 3:04 AM EDT) Thyroid Stimulating Hormone, Plasma 1.58 0.40 - 4.20 uIU/mL 04/29/2025 3:55 AM EDT [facility] Blood Venous blood specimen / Unknown Venipuncture / Unknown 04/29/2025 3:04 AM EDT 04/29/2025 3:19 AM EDT us Sy De La Fuente APRN, DENISE LAB BLOOD ORDERABLES Fin al Result Performing Organization Address City/[facility]/ZIP Co de Phone Number [facility] [address] [place] [address] * (ABNORMAL) Hemoglobin A1c (04/29/2025 3:04 AM EDT) Hemoglobin A1c 8.9(H) <5.7 % 04/29/2025 9:40 AM EDT [facility] Blood Venous blood specimen / Unknown Venipuncture / Unknown 04/29/2025 3:04 AM EDT 04/29/2025 3:19 AM EDT Narrative [facility] - 04/29/2025 9:40 AM EDT [facility] Interpretive Data: Diagnosis of Diabetes: Diabetic > or = 6.5% Pre-diabetic 5.7 to 6.4% Non-diabetic < or = 5.6% Glycemic Targets for Type I and Type II Diabetics: Non- Adults <7.0% Adults <6.0% Children and Adolescents <7.5% Source: [place] [employer]. Standards of medical care in diabetes,2017. Diabetes Care.2017:40 (suppl 1):S1-S135. us Sy De La Fuente APRN, DNP LAB BLOOD ORDERABLES Fin al Result Performing Organization Address City/[facility]/ZIP Co de Phone Number [facility] [address] [place] [address] * Folate (04/29/2025 3:04 AM EDT) Folate, Serum 10.5 >4.6 ng/mL 04/29/2025 4:05 AM EDT [facility] Blood Venous blood specimen / Unknown Venipuncture / Unknown 04/29/2025 3:04 AM EDT 04/29/2025 3:20 AM EDT us Sy De La Fuente APRN, DNP LAB BLOOD ORDERABLES Fin al Result [facility] [address] [place] [address] * Ferritin (04/29/2025 3:04 AM EDT) Ferritin, Serum 40 20 - 400 ng/mL 04/29/2025 4:06 AM EDT [facility] Blood Venous blood specimen / Unknown Venipuncture / Unknown 04/29/2025 3:04 AM EDT 04/29/2025 3:20 AM EDT us Sy De La Fuente LUMBER BEARER, DNP LAB BLOOD ORDERABLES Fin al Result Performing Organization Address City/[facility]/ZIP Co de Phone Number [facility] [address] [place] [address] * Vitamin B12 (04/29/2025 3:04 AM EDT) Vitamin B12, Serum 338 210 - 1,033 pg/mL 04/29/2025 4:06 AM EDT [facility] Blood Venous blood specimen / Unknown Venipuncture / Unknown 04/29/2025 3:04 AM EDT 04/29/2025 3:20 AM EDT us Sy De La Fuente APRN, DNP LAB BLOOD ORDERABLES Fin al Result Performing Organization Address [facility] de Phone Number [facility] [address] [place] [address] * Cortisol (04/29/2025 3:04 AM EDT) Cortisol 2.80 Before 10am: 3.7 - 19.4. After 5pm: 2.9 - 17.3 ug/dL 04/29/2025 4:22 AM EDT [facility] Comment:Testing performed on Matt Cyanide Pot Tender, standardized against CORRECTION Reference Standard concentration values assigned by LC-MS/MS and verified by BCR 192 and BCR 193 certified reference materials. Blood Venous blood specimen / Unknown Venipuncture / Unknown 04/29/2025 3:04 AM EDT 04/29/2025 3:19 AM EDT us Sy De La Fuente APRN, DNP LAB REF LAB BLOOD AND FL UID ORD Final Result Performing Organization Address [facility] Co de Phone Number [facility] [address] [place] [address] * VAS Ankle Brachial Index - GABBI [...] are demonstrated at the levels of the FUEL YARD OPERATOR and DPA. Segmental pressures are within normal limits with a FUEL YARD OPERATOR GABBI of 1.1 (172 mmHg) and a DPA GABBI of 1.0 (149 mmHg). Digit pressures are of 122 mmHg. Left: Multiphasic waveforms are demonstrated at the levels of the FUEL YARD OPERATOR and DPA. Segmental pressures are within normal limits with a FUEL YARD OPERATOR GABBI of 1.1 (164 mmHg) and a DPA GABBI of 1.0 (153 mmHg). Digit pressures are of 151 mmHg. Procedure Note Chris Schaefer MD - 04/28/2025 CLINICAL INDICATION: Diabetic foot ulcer TECHNIQUE: Non-invasive, continuous wave Doppler exam with segmental pressures andspectral analysis of the lower extremity was performed. COMPARISON: None. FINDINGS: Right: Multiphasic waveforms are demonstrated at the levels of the FUEL YARD OPERATOR andDPA. Segmental pressures are within normal limits with a FUEL YARD OPERATOR GABBI of 1.1(172 mmHg) and a DPA GABBI of 1.0 (149 mmHg). Digit pressures are of 122mmHg. Left: Multiphasic waveforms are demonstrated at the levels of the FUEL YARD OPERATOR andDPA. Segmental pressures are within normal limits with a FUEL YARD OPERATOR GABBI of 1.1(164 mmHg) and a [...] Resistant Organisms Isolated 04/29/2025 2:32 PM EDT [facility] Swab (Nares and Saba Rectal) Non-blood Collection / Unknown 04/28/2025 1:44 PM EDT 04/28/2025 2:15 PM EDT Narrative [facility] - 04/29/2025 2:32 PM EDT This test was developed and its performance characteristics determined by the [facility]biology [facility]. Although the media is FDA-approved, it is not FDA-approved for all specimen types submitted. The FDA has determined that such clearance or approval is not necessary. This test is used for surveillance purposes. It should not be regarded as investigational or for research. The [facility] Laboratory is certified under the Clinical Laboratory Improvement Amendments of 1988 (CLIA-88) as qualified to perform high complexity clinical laboratory testing. us Sy De La Fuente APRN, DNP LAB MICROBIOLOGY - GENER AL ORDERABLES Final Result [facility] [address] [place] [address] * Lavender Top (04/28/2025 8:13 AM EDT) Extra Hold for add-ons 04/28/2025 11:01 AM EDT [facility] Comment:Auto resulted. Blood Venous blood specimen / Unknown 04/28/2025 8:13 AM EDT 04/28/2025 8:19 AM EDT us Marjorie Myers MD LAB BLOOD ORDERABLES Final Resul t Performing Organization Address [facility] Co de Phone Number [facility] [address] [place] [address] * Light Green Top (04/28/2025 8:13 AM EDT) Extra Hold for add-ons 04/28/2025 11:01 AM EDT [facility] Comment:Auto resulted. Blood Venous blood specimen / Unknown 04/28/2025 8:13 AM EDT 04/28/2025 8:19 AM EDT us Marjorie Myers MD LAB BLOOD ORDERABLES Final Resul t Performing Organization Address [facility]/ZIP Co de Phone Number [facility] [address] [place] [address] * APTT (04/28/2025 8:13 AM EDT) aPTT 32 25 - 35 sec 04/28/2025 8:33 AM EDT [facility] Blood Venous blood specimen / Unknown Venipuncture / Unknown 04/28/2025 8:13 AM EDT 04/28/2025 8:18 AM EDT us Sy De La Fuente LUMBER BEARER, DNP LAB BLOOD ORDERABLES Fin al Result Performing Organization Address City/[facility]/ZIP Co de Phone Number [facility] [address] [place] [address] * (ABNORMAL) PT/INR (04/28/2025 8:13 AM EDT) Prothrombin Time 17.5(H) 12.0 - 14.3 sec 04/28/2025 8:33 AM EDT [facility] INR 1.4(H) 0.9 - 1.1 04/28/2025 8:33 AM EDT [facility] Blood Venous blood specimen / Unknown Venipuncture / Unknown 04/28/2025 8:13 AM EDT 04/28/2025 8:18 AM EDT Narrative [facility] - 04/28/2025 8:33 AM EDT OPTIMAL INR RANGES FOR PATIENT ON ORAL ANTICOAGULANT THERAPY Prevention of venous thromboembolism INR 2.0 to 3.0 In patients with heart disease: Atrial fibrillation INR 2.0 to 3.0 Valvular heart disease INR 2.0 to 3.0 Tissue heart valves INR 2.0 to 3.0 Mechanical prosthetic valves INR 2.5 to 3.5 Prevention of recurrent MD INR 2.5 to 3.5 us Sy De La Fuente LUMBER BEARER, DNP LAB BLOOD ORDERABLES Fin al Result [facility] [address] [place] [address] * CT Foot Right w IV Contrast [...] signing this report, I, the attending physician, heatherat I have personally reviewed the images/data for [...] at day 5 05/03/2025 12:01 AM EDT [facility] Blood Venous blood specimen / Unknown Venipuncture / Unknown 04/27/2025 10:16 PM EDT 04/27/2025 10:53 PM EDT us Jessa Law MD LAB MICROBIOLOGY - [facility] Final Result [facility] [address] [place] [address] * (ABNORMAL) Blood gas, venous (04/27/2025 10:16 PM EDT) pH, Venous 7.47(H) 7.32 - 7.43 LAB HEMATOLOGY METHOD 04/27/2025 10:21 PM EDT [facility] pCO2, Venous 50 40 - 55 mmHg LAB HEMATOLOGY METHOD 04/27/2025 10:21 PM EDT [facility] pO2, Venous 30 25 - 40 mmHg LAB HEMATOLOGY METHOD 04/27/2025 10:21 PM EDT [facility] SO2, Measured, Venous 52(L) 65 - 80 % LAB HEMATOLOGY METHOD 04/27/2025 10:21 PM EDT [facility] Base Excess, Venous 11.6(H) -2.0 - 3.0 mmol/L LAB HEMATOLOGY METHOD 04/27/2025 10:21 PM EDT [facility] Bicarbonate, Calculated, Venous 37(H) 22 - 26 mmol/L LAB HEMATOLOGY METHOD 04/27/2025 10:21 PM EDT [facility] Hematocrit, Whole Blood 30.1(L) 40.0 - 51.0 % LAB HEMATOLOGY METHOD 04/27/2025 10:21 PM EDT [facility] Sodium, Whole Blood 136 136 - 145 mmol/L LAB HEMATOLOGY METHOD 04/27/2025 10:21 PM EDT [facility] Potassium, Whole Blood 2.8(L) 3.6 - 4.9 mmol/L LAB HEMATOLOGY METHOD 04/27/2025 10:21 PM EDT [facility] Chloride, Whole Blood 88(L) 97 - 107 mmol/L LAB HEMATOLOGY METHOD 04/27/2025 10:21 PM EDT [facility] Glucose, Whole Blood 131(H) 74 - 99 mg/dL LAB HEMATOLOGY METHOD 04/27/2025 10:21 PM EDT [facility] Lactate, Venous, Whole Blood 2.0 0.5 - 2.2 mmol/L LAB HEMATOLOGY METHOD 04/27/2025 10:21 PM EDT [facility] Ionized Calcium, Whole Blood 4.2(L) 4.6 - 5.1 mg/dL LAB HEMATOLOGY METHOD 04/27/2025 10:21 PM EDT [facility] Blood Venous blood specimen / Unknown Venipuncture / Unknown 04/27/2025 10:16 PM EDT 04/27/2025 10:20 PM EDT us Jessa Law MD LAB BLOOD ORDERABLES Final Resu lt [facility] [address] [place] [address] * ED HIV 1/2 Antibody/Antigen Screen w/Reflex to HIV 1/2 Differentiation (04/27/2025 9:37 PM EDT) HIV 1 & 2 Antibody/Antigen Screen Non Reactive Non Reactive 04/27/2025 10:41 PM EDT [facility] Comment:Screening for HIV 1 & 2 antibodies, and P24 antigen is NONREACTIVE. No confirmatory testing is required. Blood Venous blood specimen / Unknown Venipuncture / Unknown 04/27/2025 9:37 PM EDT 04/27/2025 10:00 PM EDT Pool Jean MD LAB BLOOD ORDERABLES Final Res ult Performing Organization Address [facility] Co de Phone Number [facility] [address] [place] [address] * Beta-Hydroxybutyric Acid (04/27/2025 9:37 PM EDT) [facility] Beta-Hydroxybut yric Acid, Plasma 0.23 <=0.27 mmol/L 04/27/2025 10:56 PM EDT [facility] Blood Venous blood specimen / Unknown Venipuncture / Unknown 04/27/2025 9:37 PM EDT 04/27/2025 9:40 PM EDT Jessa Law MD LAB BLOOD ORDERABLES Final Resu lt Performing Organization Address [facility] Co de Phone Number [facility] [address] [place] [address] * (ABNORMAL) Procalcitonin (04/27/2025 9:37 PM EDT) Pathologist [facility] Procalcitonin, Plasma 0.11(H) <0.09 ng/mL 04/28/2025 8:36 AM EDT [facility] Blood Venous blood specimen / Unknown Venipuncture / Unknown 04/27/2025 9:37 PM EDT 04/27/2025 9:40 PM EDT Narrative [facility] - 04/28/2025 8:36 AM [...] predict 28 day mortality risk. Please consult [email or web address]-sow-[email or web address] for more information. Test performed at [facility]. us Sy De La Fuente APRN, DNP LAB BLOOD ORDERABLES Fin al Result Performing Organization Address City/[facility]/[place] [address] * Hepatitis C Antibody - ED (04/27/2025 9:37 PM EDT) Hepatitis C Antibody Negative Negative 04/27/2025 10:41 PM EDT [facility] Blood Venous blood specimen / Unknown Venipuncture / Unknown 04/27/2025 9:37 PM EDT 04/27/2025 10:00 PM EDT us Pool Jean MD LAB BLOOD ORDERABLES Final Res ult Performing Organization Address [facility] [place] [address] * (ABNORMAL) Sed rate, automated (04/27/2025 9:37 PM EDT) Sedimentation Rate >111(H) <15 mm/hr 2024 11:10 PM EDT [facility] Blood Venous blood specimen / Unknown Venipuncture / Unknown 04/27/2025 9:37 PM EDT 04/27/2025 9:40 PM EDT us Jessa Law MD LAB BLOOD ORDERABLES Final Resu lt Performing Organization Address City/[facility]/ZIP Co de Phone Number [facility] [address] [place] [address] * (ABNORMAL) C-reactive protein (04/27/2025 9:37 PM EDT) CRP, Plasma 82.6(H) <=8.0 mg/L 04/27/2025 10:03 PM EDT [facility] Blood Venous blood specimen / Unknown Venipuncture / Unknown 04/27/2025 9:37 PM EDT 04/27/2025 9:40 PM EDT Narrative [facility] - 04/27/2025 10:03 PM EDT This CRP test is appropriate for assessment of infection, systemic inflammation and/or tissue injury. To assess cardiovascular disease risk order high sensitivity CRP (CRPH). us Pool Jean MD LAB BLOOD ORDERABLES Final Res ult [facility] [address] [place] [address] from Last 3 Months Insurance [employer] [address] Advance Directives * Full Code (Latest Code [...] updated to appropriate status: Yes Care Teams Patient Financial Specialist Relationship Specialty Start Date End Date Malcolm Hayward APRN [address] [place] [address] PCP - General 09/21/23
--- OUTSIDE RECORDS SUMMARY | 2025-06-12 11:11 | XMS_ITS | Encounter Summary ---
Author Organization Healthcare Address [address] [id number] Care Team Providers Care Oil And Gas Exploration Technician Name Role Phone Malcolm Hayward ADALGISA Primary Care Provider [phone] Encounter Details Date Type Department Care Team (Late st Contact Info) Description 05/26/2025 Telephone Wound Care [address] [place] [address] Sheila Marcano, BLAS [address] [place] [address] Social History Tobacco Use Types [...] in a jail (including now)? No 04/28/2025 [facility] Utilities Answer Date Recorded In the past [...] a culture done of his wound at [facility] and it came back positive for pseudomonas aeruginosa. She said [facility] said oral abx are not going to work, so she is wondering what she needs to do? Get in touch w/ ID, bring him to ED to be admittedfor IV abx? Asking for a call back. Thanks! Best contact number: Other: [phone] Optimal time of day to reach caller: [...] Description 06/22/2025 1:40 PM EST Office Visit [facility] [address] [facility] 5th Floor [address] [place] [address] Mary Vicente MD [address] [place] [address] 06/23/2025 8:00 AM EST Office Visit [facility] [address] [place] [address] Sheila Marcano PA [address] [place] [address] documented as of this encounter [...] documented as of this encounter Care Teams Oil And Gas Exploration Technician Relationship Specialty Start Date End Date Malcolm Hayward APRN [address] [place] [address] PCP - General 09/21/23 documented as of this encounter
--- OUTSIDE RECORDS SUMMARY | 2025-06-12 11:11 | XMS_ITS | Encounter Summary ---
Author Organization Healthcare Address [address] [id number] Care Team Providers Care Cartridge Maker Name Role Phone Malcolm Hayward ADALGISA Primary Care Provider [phone] Reason for Visit * Reason Onset Date Comments HCN - Patient Message 05/24/2025 Call pankaj morrissey HCN Status Update Call #2 05/24/2025 Encounter Details Date Type Department Care Team (Tonio st Contact Info) Description 05/24/2025 Telephone [facility] [address] [facility] 5th Floor [address] [place] [address] Sheila Marcano, PA [address] [facility] [address] [place] [address] HCN - Patient Message (Call [...] in a halfway (including now)? No 04/28/2025 [facility] Utilities Answer Date Recorded In the [...] of the initial request. Best contact number: [phone] Optimal time of day to reach caller: [...] optimal time of day to reach caller: [phone] Note: Please do not reply to this [...] Description 06/22/2025 1:40 PM EST Office Visit [facility] [address] 5th Floor [address] [place] [address] Mary Vicente MD [address] [place] [address] 06/23/2025 8:00 AM EST Office Visit [facility] [address] [facility] 5th Floor [address] [place] [address] Sheila Marcano, PA [address] [place] [address] documented as of this encounter [...] documented as of this encounter Care Teams Cartridge Maker Relationship Specialty Start Date End Date Malcolm Hayward APRN [address] [place] [address] PCP - General 09/21/23 documented as of this encounter
--- OUTSIDE RECORDS SUMMARY | 2025-06-12 11:11 | XMS_ITS | Encounter Summary ---
Author Organization [facility] Address [address] [id number] Care Team Providers Care Pharmacy Technician Infusion Name Role Phone Malcolm Hayward SENIOR PASTOR Primary Care Provider [phone] Reason for Visit * Reason Comments Med Refill Encounter Details Date Type Department Care Team (Late st Contact Info) Description 12/02/2024 Refill [facility] Endocrinology [address] [place] [address] Divine Archer, SENIOR PASTOR [address] [facility] [address] [place] [address] Social History Tobacco Use Types [...] Description 06/22/2025 1:40 PM EST Office Visit [facility] [address] [place] [address] Mary Vicente MD [address] [facility] [address] [place] [address] 06/23/2025 8:00 AM EST Office Visit [facility] Vascular [facility] [address] [place] [address] Sheila Marcano PA [address] [facility] [address] [place] [address] documented as of this encounter [...] documented as of this encounter Care Teams Pharmacy Technician Infusion Relationship Specialty Start Date End Date Malcolm Hayward APRN [address] [place] [address] PCP - General 09/21/23 documented as of this encounter
--- OUTSIDE RECORDS SUMMARY | 2025-06-12 11:13 | XMS_ITS | Encounter Summary ---
Author Organization Healthcare Address [address] [id number] Care Team Providers Care Assistant Executive Housekeeper Name Role Phone Malcolm Hayward CASTING OPERATOR Primary Care Provider [phone] Reason for Visit * Reason Comments Med Refill Encounter Details Date Type Department Care Team (Late st Contact Info) Description 12/31/2023 Refill [facility] Endocrinology [address] [place] [address] Earline Loaiza, CASTING OPERATOR [address] [facility] [address] [place] [address] Type 2 diabetes mellitus (CMS/HCC) [...] Description 06/22/2025 1:40 PM EST Office Visit [facility] Comprehensive [facility]ascular Clinic [address] [facility] 5th Floor Wing [address] [place] [address] Mary Vicente MD [address] [place] [address] 06/23/2025 8:00 AM EST Office Visit [facility] [address] [facility] 5th Floor [address] [place] [address] Sheila Marcano PA [address] [place] [address] documented as of this encounter [...] as of this encounter Care Teams Assistant Executive Housekeeper Relationship Specialty Start Date End Date Malcolm Hayward APRN [address] [place] [address] PCP - General 09/21/23 documented as of this encounter
--- OUTSIDE RECORDS SUMMARY | 2025-06-12 11:13 | XMS_ITS | Encounter Summary ---
Author Organization [facility] Address [address] [id number] Care Team Providers Care Route Jumper Name Role Phone Malcolm Hayward APRN Primary Care Provider [phone] Encounter Details Date Type Department Care Team [...] in a retirement (including now)? No 04/28/2025 [facility] Utilities Answer Date Recorded In the [...] 6. Suicidal Behavior (Lifetime) No 9:43 PM EDT Stella Daniels RN documented as of this encounter Plan of Treatment Upcoming Encounters Date Type Department Care Team (Late st Contact Info) Description 06/22/2025 1:40 PM EST Office Visit [place] [facility] [address] [facility] 5th Floor [address] [place] [address] Mary Vicente MD [address] [place] [address] [address] [place] [address] 06/23/2025 8:00 AM EST Office Visit [facility] [address] [place] [address] Sheila Marcano PA [address] [place] [address] documented as of this encounter [...] documented as of this encounter Care Teams Route Jumper Relationship Specialty Start Date End Date Malcolm Hayward APRN [address] [place] [address] PCP - General 09/21/23 documented as of this encounter
--- OUTSIDE RECORDS SUMMARY | 2025-06-12 11:13 | XMS_ITS | Encounter Summary ---
Author Organization [facility] Address [address] [phone] Care Team Providers Care Art Critic Name Role Phone Malcolm Hayward APRN Primary Care Provider [phone] Encounter Details Date Type Department Care Team [...] in the past 12 m [facility], were you homeless or living in a snf (including now)? No 04/28/2025 [facility] Utilities Answer Date Recorded In [...] Description 06/22/2025 1:40 PM EST Office Visit [facility]ascular Clinic [address] [place] [address] Mary Vicente MD [address] [facility] [address] [place] [address] 06/23/2025 8:00 AM EST Office Visit [facility] [address] [facility] 5th Floor [address] [place] [address] Sheila Marcano PA [address] [facility] [address] [place] [address] documented as of this encounter [...] documented as of this encounter Care Teams Art Critic Relationship Specialty Start Date End Date Malcolm Hayward APRN [address] [place] [address] PCP - General 09/21/23 documented as of this encounter
--- OUTSIDE RECORDS SUMMARY | 2025-06-12 11:13 | XMS_ITS | Clinical Summary ---
[facility] Address [address] [place] [address] Care Team Providers Care Senior Medical Billing Specialist Name Role Phone Provider, No Known [...] C SCREENING Completed 04/27/2025 Insurance Care Teams Senior Medical Billing Specialist Relationship Specialty Start Date End Date Provider, No Known [facility] [place] [address] PCP - General 02/11/21
[2025-06-12 13:20] LABS: Appearance,Urine/Cath CLEAR (Clear); Bilirubin,Cath Negative (Negative); Blood, Urine/Cath 1+ (Negative); Color,Urine/Cath YELLOW (Yellow); Glucose,Urine/Cath (UA) Negative (Negative); Ketones,Urine/Cath Negative (Negative); Leukocyte Esterase,Cath 3+ (Negative); Nitrate,Cath POSITIVE (Negative); PH,Urine/Cath 6.5 (5.0-8.5); Protein,Urine/Cath Negative (Negative); Specific Gravity, Urine/Cath 1.010 (1.005-1.030); Urobilinogen,Cath 0.2 EU/dl (0.2)
[2025-06-12 13:54] LABS: Amorphous Sediment,Ur/Cath Trace /lpf; Bacteria,Urine/Cath 1+ /lpf; RBC,Urine/Cath Occasional # /hpf (0-3)
== END 2025-06-12 23:59 | disposition home or self-care (01) ==
LOC: LAB 10:28
PROVIDERS: PCP Nurse Practitioner Family; Visit Provider Nurse Practitioner Family
DX: R30.0 Dysuria (principal)
CPT/HCPCS: 81001; 87086; 87088

== ENCOUNTER 2025-06-15 09:28 | Outpatient (CLI) | payer MEDICARE, BC, SELFPAY ==
--- OUTSIDE RECORDS SUMMARY | 2025-04-27 20:29 | XMS_ITS | Encounter Summary ---
Author Organization [facility] Address [address] [place] [address] Care Team Providers Care Administrative Services Assistant Name Role Phone Malcolm Hayward APRN Primary Care Provider [phone] Reason for Referral * Consultation (Routine) - Authorized Specialty Diagnoses / Procedures Referred By Contac t Referred To Contact Endocrinology Diagnoses Uncontrolled type 2 diabetes mellitus with hyperglycemia, with long-term current use of insulin Type 2 diabetes mellitus with diabetic peripheral angiopathy without gangrene, with long-term current use of insulin Martina Foote PA [address] [place] [address] Phone: tel: fax: Referral ID Status Reason Start Date Expiration Date Visits Requested Visits Authorized [id number] Authorized Specialty Services Required 5 11/04/2026 1 1 * Consultation (Routine) - Authorized Specialty Diagnoses / Procedures Referred By Contact Referred To Contact Vascular Surgery / [facility] Diagnoses Diabetic foot ulcer with osteomyelitis Diane Guzman MD [address] [place] [address] Phone: tel:[phone] fax:[phone] [facility] [address] [facility] 5th Floor [address] [place] [address] Phone: tel: fax: Referral ID Status Reason Start Date Expiration Date Visits Requested Visits Authorized [id number] Authorized Specialty Services Required 5 11/02/2026 1 1 Reason for Visit * Reason Comments Wound Check * Auth/Cert (Routine) Specialty Diagnoses / Procedures Referred By Anish t Referred To Contact Diagnoses Diabetic foot ulcer with osteomyelitis Greg Lee MD [address] [place] [address] Phone: tel: fax: [facility] Emergency Department [address] [place] [address] Phone: tel: Referral ID Status Reason Start Date Expiration Date Visits Re quested Visits Authorized [id number] 1 1 Encounter Details Date Type Department Care Team (Latest Contact Info) Description 04/27/2025 9:29 PM EDT - 05/18/2025 11:48 AM EST Hospital Encounter [facility] Inpatient [address] [place] [address] Jessa Law MD [address] [place] [address] Man Gacria, DO [address] [place] [address] Greg Lee MD [address] [place] [address] Marjorie Myers MD [address] [place] [address] Diane Guzman MD [address] [place] [address] Selin Lee MD [address] [place] [address] Wily Goyal, DO [address] [place] [address] Other chronic osteomyelitis of right foot (CMS/HCC) (Primary Dx); Diabetic foot ulcer with osteomyelitis; Uncontrolled type 2 diabetes mellitus with hyperglycemia, with long-term current use of insulin; Type 2 diabetes mellitus with diabetic peripheral angiopathy without gangrene, with long-term current use of insulin Discharge Disposition: Residential Facility Social History Tobacco Use Types Packs/Day [...] any time in the past 12 m [facility], were you homeless or living in a chcf (including now)? No 04/28/2025 [facility] Utilities Answer Date Recorded In the past 12 months has [employer] electric, gas, oil, or water company threatened [...] 5 tablet 05/17/2025 Insulin Pen Needle (Pen Coin) 31G X 5 MM misc USE TO [...] capsule by mouth daily. 05/10/2018 HYDROcodone-acetami nophen ([place]) 10-325 MG tablet Take 1 tablet by [...] Goal: Patient-Specific Goal (Individualized) 05/18/2025 113 by yKlee Gonzalez RN Outcome: Ongoing, Progressing Flowsheets (Taken [...] provided Taken 05/17/2025 2228 by Ivan Slaughter RNleather tooler Interventions: medication (see MAR) Goal: Optimal Wound [...] Ongoing, Progressing Intervention: Promote Activity and Functional [place] Flowsheets Taken 05/18/2025 1131 by Kylee Gonzalez [...] PCP name and Address: Malcolm Hayward APRN [address] [place] [address] / [place] [address] Brief History of Present Illness 49 M [...] extremity. He was accepted for discharge to [facility] rehab facility. Urinary Retention and Recurrent [...] He was medically stable for discharge to [facility] rehab facility, with recommendations for close [...] HYDROcodone-acetaminophen 10-325 MG tablet Commonly known as: [place] Take 1 tablet by mouth every 6 [...] the skin 1 time per week. Pen Coin 31G X 5 MM mis USE TO [...] Your Medications These medications were sent to [facility] [place] [address] gabapentin 600 MG tablet HYDROcodone-acetaminophen 10-325 MG tablet insulin regular 100 UNIT/ML injection vial insulin regular 500 UNIT/ML CONCENTRATED injection vial Information about where to get these medications is not yet available Ask your nurse or doctor about these medications ferrous sulfate 324 MG tablet delayed-release Discharge Diagnosis Medical Problems Active and Resolved Hospital Problems Hospital Morbid obesity ([facility]) Hypertension Type 2 diabetes Overview Signed [...] 05/30/2025 2:40 PM Sheila Marcano PA [facility] 06/14/2025 1:40 PM Divine Archer, CNC SERVICE ENGINEER [facility] 06/22/2025 1:40 PM Mary Vicente MD [facility] Pertinent Physical Exam At Time [...] Note Gonzalo Smalls 49 y.o. male CSN: [id number] Admission: 04/27/2025 9:29 PM Primary Problem: Diabetic foot ulcer Primary Manager Construction: Primary Caregiver: Self Assistance Available at Discharge: Availability of Care Givers (#Hours): 24 hours Housing Circumstances-Z Codes: Housing Circumstances (select all that apply): Low Income (101-300% Federal Poverty Guidlines) - Z596 Discharge Facility/Level of Care Needs: Discharge Facility/Level of Care Needs: 62-Rehab facilty ([place]) Patient's Choice of Community Agency(s): Patient's Choice of Community Agency(s): [facility] Patient/Family Anticipated Services at Transition: Patient/Family [...] Recieved By: Gonzalo Smalls- the patient Follow-up: [facility] [address] [facility] 5th Floor [address], [address] [facility] [address] Primary care provider (PCP) Malcolm Hayward, CNC SERVICE ENGINEER [address] [facility] [place] [address] Discharge Transportation: Transportation Anticipated: medical transport Transportation [...] Araceli in admission who confirmed pt's acceptance #[phone]. Pt updated and in agreement with d/c plan. Team and bedside RN updated. Bedside RN to call report to #[phone]. Araceli has access to [facility] and will get d/c s [facility] that way. Script for controlled medication to be sent to [facility] [place]. Ambulance to transport the pt is [...] EST Occupational Therapy Treatment Patient Name: Gonzalo Smlals Today's Date: 05/17/2025 OT Discharge Recommendations: Acute [...] Mobility Bed Mobility Exam: Scooting/Bridging Level of [place]: Contact guard Physical/Nonphysical Assist: Verbal Cues, Minimal cues Assistive Device: Overhead trapeze Bed Mobility Exam: Supine to Sit Level of [place]: Minimum assist (75% patient's effort) Physical/Nonphysical Assist: HOB elevated, Verbal Cues, Minimal cues Assistive Device: Overhead trapeze Bed Mobility Exam: Sit to Supine Level of [place]: Stand-by assist Physical/Nonphysical Assist: Verbal Cues, Minimal cues Assistive Device: Overhead trapeze Transfers Transfer Exam: Sit to stand Level of [place]: Maximum assist (25% patient's effort) Physical/Nonphysical Assist: Verbal Cues, Nonverbal cues (demo/gestures), Additional assist utilized for safety, Set-up required, Minimal cues Assistive Device: Walker, rolling (bariatric) Transfer Exam: Stand to Sit Level of [place]: Maximum assist (25% patient's effort) Physical/Nonphysical Assist: [...] help from Spouse Level of Mobility Mobility [place] Independent gait with device History of Falls [...] go, I'm just nervous. Visitors Present No Sand Mixer (if applicable) Sand Mixer: Not Applicable OBJECTIVE PAIN Pt was without c/o pain at the beginning of this session and throughout the PT treatment. Prior to BED SETTER's departure: * rest was provided * patient [...] by this therapist: BED MOBILITY Level of [place] Physical/Non- physical Assist Adaptive Equipment Utilized Rolling/ Turning Contact guard Verbal Cues, Set-up required, Minimal cues Bed rails, Other (CELL TUBER MACHINE) Scooting/ Bridging Contact guard Verbal Cues, Minimal [...] breaks between standing trials. TRANSFERS Level of [place] Physical/Non- physical Assist Adaptive Equipment Utilized Sit [...] placement, sequencing, weight shifting, appropriate use of CELL TUBER MACHINE, and maintaining NWB on RLE. Tactile cues provided to assist in sequencing and weight shifting. AMBULATION Level of [place] Distance Adaptive Equipment Utilized Ambulation N/A N/A N/A Comments Unable to side step or progress to forward hop step at bariatric RW level due to inabilityto maintain prolonged standing position while maintaining NWB in RLE. BALANCE Postural Appearance Posture: Within Functional Limits, Forward head Level of Hansford Balance Support Activities Static Sit Standby assist [...] Abduction * Ankle pumps x1-2 sec holds BED SETTER provided minimal verbal and tactile cueing to [...] overall. Standardized Assessments Standardized Assessments Standardized Assessments: [facility] 6-Clicks Mobility Assessment [facility] 6-Clicks Mobility Assessment Difficulty patient [...] climbing 3-5 steps with a railing?: Unable [facility] 6-Clicks Mobility Assessment Total : 11 PATIENT / FAMILY EDUCATION Patient was educated regarding the PT POC and recommendations regarding discharge planning, as wellas progressively increased time spent out of bed/up to chair, and continued mobilization / ambulation with nursing staff as tolerated to promote increased activity tolerance and Endurance. BED SETTER providing verbal cues/demonstration for pursed-lip breathing technique to promote improved ventilation, decreased respiratory rate and energy conservation with activity. BED SETTER stressed to patient the importance of having [...] has been following with urology outpatient at [facility]. 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 Also discussed contacting [employer] directly for the financial assistance program. -hopefully [...] team via secure chat or page us [phone] during 7a-7p, Thursday-Thursday. For after hours please [...] Ongoing, Progressing Intervention: Promote Activity and Functional [place] Flowsheets (Taken 05/16/2025 1949) Self-Care Promotion: independence encouraged * Progress Notes - Chayo Jennings RN - 05/16/2025 2:16 PM EST Case Management Adult Progress Note Gonzalo Smalls 49 y.o. male CSN: [id number] Admission: 04/27/2025 9:29 PM Primary Problem: Diabetic foot ulcer Anticipated Discharge Date: 05/18/25 Pt is in a need for rehab placement and was referred and accepted by Mer[facility] Espinoza- LOLA CM spoke with Araceli in admission, ph#[phone] who confirmed pts acceptance. Pt updated and [...] Note Gonzalo Smalls 49 y.o. male CSN: [id number] This is a 49 y.o. male patient was admitted to [facility] with the diagnosis of Diabetic Foot [...] Hayward APRN, [facility]End[facility] is Dr. Garvey in [place], [place]. Medication Education instructions given: The use [...] Prevention , pt reports he has a mind reader as well Follow Ups: Provided with educational [...] has been following with urology outpatient at [facility]. They have postulated this to be [...] the video go to this web address: [email or web address] Or, scan this QR code with your [...] to gently smooth the nail. Have a mind reader trim your nails if you can't see [...] remove corns, calluses, or warts by yourself. Inbs-vmx-zwuucms products can burn or damage your skin. [...] your primary care doctor or by a mind reader. This is a doctor who specializes in foot care. Some diabetes centers have regular foot clinics. Last Reviewed Date: 2024 00:00:00 ?? [id number] [employer]. All rights reserved. This information is not intended as a substitute for professional medical care. Always follow your healthcare professional's instructions. * Ruy HoffmanMENG - Vivian Garcia RN - 05/16/2025 11:06 AM EST Images from the original note were not included. [address] Inspecting Your Feet (Diabetes) Ljle-dm-Slrd: Last Reviewed Date: 2024 00:00:00 ?? [id number] [employer]. All rights reserved. 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 Also discussed contacting [employer] directly for the financial assistance program. -patient with plans to discharge to [facility] once able - need to check with [facility] to see if they are okay with utilizing U500 insulin if patient is able to bring in his own supply Insulin regimen - would like patient to utilize U500 home dosing at [facility] Continue Dexcom G7 CGM Likely continue [...] team via secure chat orpage us at [phone] during -7p, Thursday-Thursday. For after hours please contact the on-call Endocrine Fellow. Thank you for the opportunity to participate in this patient's care. - Reviewed notes by primary team and consulting services to determine appropriate plan of care as in the note. - Discussed plan and management with patient and religious educator Time Spent: I personally spent a [...] Note Gonzalo Smalls 49 y.o. male CSN: [id number] Room/Bed 117/117A Nutrition evaluation type: follow-up Reason [...] Weight Evaluation: Extreme Obesity (BMI > 40) [place] Body Weight (kg): 80.9 Percent [place] Body Weight: 311 Adjusted Body Weight (kg): [...] Regular Adult Carbohydrate Restriction: Consistent CHO 2 (1610-0037 Steven, 80 g/meal) Adult Sodium Restriction: 2,000 mg Na Percent Meals Eaten (%): 75-100% of meals Diet Experience and Nutrition History: Diet Education Provided: Will monitor Pertinent home medications: Albuterol, Bumex, Insulin, Metformin, Ozempic, Aldactone Adventism needs: Nutrition Focused Physical Exam: Physical exam [...] Anxiety disorder, unspecified Anxiety Arthritis Atrial fibrillation ([facility]) CAP (community acquired pneumonia) 05/19/2024 Cellulitis [...] has been following with urology outpatient at [facility]. They have postulated this to be related to his diabetes and have had several voiding trials which have failed. Also has un dergone proctoscopy (?) which was normal. 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 and he [...] plan and management with patient. Selin Lee Stretcher Leveler Operator Helper Division of Hospital Medicine [facility] * Care Plan - Santy Garcia RN [...] Note Gonzalo Smalls 49 y.o. male CSN: [id number] Admission: 04/27/2025 9:29 PM Primary Problem: Diabetic foot ulcer Anticipated Discharge Date: TBD Pt was referred to many SNF [place] Few SNF are considering accepting the pt along with [facility], ph#[phone]. RN LA spoke with Araceli- admission at [facility]. Araceli is stating that she is checking if they can order lift needed for the pt and will call back. Team aware. LOLA TOVAR will continue to follow and assist as needed. 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 Also discussed contacting [employer] directly for the financial assistance program. -patient with plans to discharge to [facility] once able - need to check with [facility] to see if they are okay with utilizing U500 insulin if patient is able to bring in his own supply Insulin regimen - would like patient to utilize U500 home dosing at [facility] Continue Dexcom G7 CGM Likely continue [...] team via secure chat orpage us at [phone] during 7a-7p, Thursday-Thursday. 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 Also discussed contacting [employer] directly for the financial assistance program. -patient with plans to discharge to [facility] once able - need to check with [facility] to see if they are okay with utilizing U500 insulin if patient is able to bring in his own supply Insulin regimen - would like patient to utilize U500 home dosing at [facility] Continue Dexcom G7 CGM Likely continue [...] via secure chat or page us at [phone] during 7a-7p, Thursday-Thursday. For after hours please [...] Ongoing, Progressing Intervention: Promote Activity and Functional [place] Flowsheets Taken 05/14/2025 0946 Self-Care Promotion: independence encouraged BADL personal objects within reach BADL personal routines maintained meal set-up provided Taken 05/14/2025 0800 Activity Assistance Provided: assistance, stand-by assistance, 2 people Taken 05/13/2025 0931 Adaptive Equipment Use: used independently Problem: Self-Care Deficit Goal: Improved Ability to Complete Activities of Daily Living Outcome: Ongoing, Progressing Intervention: Promote Activity and Functional [place] Flowsheets Taken 05/14/2025 0946 Self-Care Promotion: independence [...] has been following with urology outpatient at [facility]. They have postulated this to be related to his diabetes and have had several voiding trials which have failed. Also has un dergone proctoscopy (?) which was normal. 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 and he [...] plan and management with patient. 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 Also discussed contacting [employer] directly for the financial assistance program. -patient with plans to discharge to [facility] once able - need to check with [facility] to see if they are okay with utilizing U500 insulin if patient is able to bring in his own supply Insulin regimen - would like patient to utilize U500 home dosing at [facility] Continue Dexcom G7 CGM Likely continue [...] via secure chat or page us at [phone] during 7a-7p, Thursday-Thursday. For after hours please [...] Ongoing, Progressing Intervention: Promote Activity and Functional [place] Flowsheets Taken 05/13/2025930 Adaptive Equipment Use: used [...] has been following with urology outpatient at [facility]. They have postulated this to be related to his diabetes and have had several voiding trials which have failed. Also has un dergone proctoscopy (?) which was normal. 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 and he [...] plan and management with patient. Selin Lee Stretcher Leveler Operator Helper Division of [facility] Medicine [facility] * Care Plan - Genaro Haritha Yehuda [...] Ongoing, Progressing Intervention: Promote Activity and Functional [place] Flowsheets (Taken 05/12/20252128) Activity Assistance Provided: assistance, 2 people Self-Care Promotion: independence encouraged BADL personal objects within reach BADL personal routines maintained meal set-up provided * Progress Notes - Max Alexander - 05/12/2025 4:32 PM EDT Case Management Adult Progress Note Gonzalo Smalls 49 y.o. male CSN: [id number] Admission: 04/27/2025 9:29 PM Primary Problem: Diabetic foot ulcer Anticipated Discharge Date: TBD Plan of care reviewed with pt's care team; and per MD, pt is medically ready for discharge pending placement. SW sent 145 Referral via [facility]. SW will continue to follow-up with pt's MD and care team on their progress and discharge plan. Max Alexander, PRESENTATION TEAM MEMBER, COLD PRESS LOADER Senior Machine Straw Hat Presser/Case Management [facility] * Progress Notes - Selin [...] has been following with urology outpatient at [facility]. They have postulated this to be related to his diabetes and have had several voiding trials which have failed. Also has un dergone proctoscopy (?) which was normal. 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 and he [...] [facility]als[facility]. Current condition is not at [...] plan and management with patient. 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 Also discussed contacting [employer] directly for the financial assistance program. -patient with plans to discharge to [place] once able - need to check with [facility] to see if they are okay with utilizing U500 insulin if patient is able to bring in his own supply Insulin regimen - would like patient to utilize U500 home dosing at [facility] Continue Dexcom G7 CGM Likely continue [...] via secure chat or page us at [phone] during 7a-7p, Thursday-Thursday. For after hours please [...] 1. Other chronic osteomyelitis of right foot ([facility]) 2. Diabetic foot ulcer with osteomyelitis [...] remission, Anxiety disorder, unspecified, Arthritis, Atrial fibrillation ([facility]/HCC), CAP (community acquired pneumonia) (05/19/2024), Cellulitis (05/19/2024), [...] understanding. Participants in Care Family/Caregiver Present: No Sand Mixer: Not Applicable Presentation Oxygen Therapy: Supplemental oxygen [...] of Function Receives Help From: Spouse Mobility [place]: Independent gait with device ADL Performance: Needs assistance Bathing: Needs assist Upper Body Dressing: Needs assist Lower Body Dressing: Needs assist Grooming: Needs assist Toileting: Independent Eating: Independent Home Management Skills: Needs assist Patient/Family Goals Return home at [facility] Objective Pain Pt reported 7/10 pain [...] Mobility Bed Mobility Exam: Scooting/Bridging Level of [place]: Contact guard (scooting hips forward to edge of bed) Physical/Nonphysical Assist: Verbal Cues, Minimal cues Assistive Device: Overhead trapeze Bed Mobility Exam: Supine to Sit Level of [place]: Minimum assist (75% patient's effort) Physical/Nonphysical Assist: HOB elevated, Verbal Cues Assistive Device: Overhead trapeze Bed Mobility Exam: Sit to Supine Level of [place]: Stand-by assist Physical/Nonphysical Assist: Verbal Cues, Minimal cues Assistive Device: Overhead trapeze Transfers Transfer Exam: Sit to stand Level of [place]: Maximum assist (25% patient's effort) (x3 reps from edge of bed, good adherence to NWB RLE) Physical/Nonphysical Assist: Verbal Cues, Nonverbal cues (demo/gestures), Additional assist utilized for safety Assistive Device: Walker, rolling (bariatric) Transfer Exam: Stand to Sit Level of [place]: Maximum assist (25% patient's effort) Physical/Nonphysical Assist: [...] climbing 3-5 steps with a railing?: Unable [facility] 6-Clicks Mobility Assessment Total : [...] session. Participants in Care Family/Caregiver Present: No Sand Mixer: Not Applicable Presentation Oxygen Therapy: Supplemental oxygen [...] of Function Receives Help From: Spouse Mobility [place]: Independent gait with device ADL Performance: Needs [...] Mobility Bed Mobility Exam: Scooting/Bridging Level of [place]: Contact guard (scooting hips forward to edge of bed) Physical/Nonphysical Assist: Verbal Cues, Minimal cues Bed Mobility Exam: Supine to Sit Level of [place]: Minimum assist (75% patient's effort) Physical/Nonphysical Assist: HOB elevated, Verbal Cues Assistive Device: Overhead trapeze Bed Mobility Exam: Sit to Supine Level of [place]: Stand-by assist Physical/Nonphysical Assist: Verbal Cues, Minimal cues Assistive Device: Overhead trapeze Transfers Transfer Exam: Sit to stand Level of [place]: Maximum assist (25% patient's effort) (x3 reps from edge of bed, good adherence to NWB RLE) Physical/Nonphysical Assist: Verbal Cues, Nonverbal cues (demo/gestures), Additional assist utilized for safety Assistive Device: Walker, rolling (bariatric) Transfer Exam: Stand to Sit Level of [place]: Maximum assist (25% patient's effort) Physical/Nonphysical Assist: [...] upper extremity support, Left upper extremity support ([facility] RW) Static Standing-Level of Assistance: Maximum assistance [...] x3 reps of sit to stand to [facility] with max Ax2 persons each time, able [...] Where Assessed: Other (Comment) (in stance at [facility] level) Toileting Interventions: Pt with small incontinent BM, required dep A for hygiene to buttocks in stance at [facility] level with assistance from 2nd person needed [...] a helper. 5 Set-up or Clean-up Assistance Sondheimer sets up or cleans up; patient completes activity. S[place]heimer assists only prior to or following the activity. 4 Supervision or touching assistance S[place]heimer provides verbal cues and/or touching/steadying and/or contact guard assistance as patient completes activity. Assistance may be provided throughout the activity or intermittently. 3 Partial/Moderate Assistance S[place]heimer does LESS THAN HALF the effort. Sondheimer lifts, holds or supports trunk or limbs, but provides less than half the effort. 2 Substantial/Maximal Assistance Sondheimer does MORE THAN HALF the effort. Sondheimer lifts or holds trunkor limbs and provides more than half the effort. 1 Dependent Sondheimer does ALL of the effort. Patient does [...] Note Gonzalo Smalls 49 y.o. male CSN: [id number] Admission: 04/27/2025 9:29 PM Primary Problem: Diabetic foot ulcer Anticipated Discharge Date: TBD RN CM informed by bedside RN that pt's weight was obtained and current weight is 244.3kg (538.5 lbs)- due to pt being over 500 lbs [facility] is not able to accept the pt- [...] Note Gonzalo Smalls 49 y.o. male CSN: [id number] Admission: 04/27/2025 9:29 PM Primary Problem: Diabetic foot ulcer Anticipated Discharge Date: TBD LOLA TOVAR f/ u with [facility]- admission at [facility]. 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 Also discussed contacting [employer] directly for the financial assistance program. -patient with plans to discharge to [facility] once able - need to check with [facility] to see if they are okay with utilizing U500 insulin if patient is able to bring in his own supply Insulin regimen - would like patient to utilize U500 home dosing at [facility] Continue Dexcom G7 CGM Likely continue [...] via secure chat or page us at [phone] during 7a-7p, Thursday-Thursday. For after hours please [...] has been following with urology outpatient at [facility]. They have postulated this to be related to his diabetes and have had several voiding trials which have failed. Also has un dergone proctoscopy (?) which was normal. 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 and he [...] plan and management with patient. Selin Lee Stretcher Leveler Operator Helper Division of [facility] Medicine [facility] * Care Plan - Haritha Lam [...] Intervention: Promote Wound Healing Flowsheets (Taken 05/10/2025 5406) Sleep/Rest Enhancement: awakenings minimized consistent schedule promoted [...] has been following with urology outpatient at [facility]. They have postulated this to be related to his diabetes and have had several voiding trials which have failed. Also has un dergone proctoscopy (?) which was normal. 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 and he [...] [facility]. Current condition is not at [...] personally discussed plan and management with patient. Seiln Lee Stretcher Leveler Operator Helper Division of Hospital Medicine [facility] * Progress Notes - Chayo Jennings RN - 05/10/2025 8:59 AM EDT Case Management Adult Progress Note Gonzalo Smalls 49 y.o. male CSN: [id number] Admission: 04/27/2025 9:29 PM Primary Problem: Diabetic foot ulcer Anticipated Discharge Date: TBD LOLA CM f/u on [facility] referral and was told that [facility] physician declined pt's acceptance to [facility]. 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 Also discussed contacting [employer] directly for the financial assistance program. -patient with plans to discharge to [facility] once able - need to check with [facility] to see if they are okay with utilizing U500 insulin if patient is able to bring in his own supply Insulin regimen - would like patient to utilize U500 home dosing at [facility] Continue Dexcom G7 CGM Likely continue [...] team via secure chat orpage us at [phone] during 7a-7p, Thursday-Thursday. For after hours please [...] sit <> stand transfers Visitors Present none Sand Mixer (if applicable) N/a OBJECTIVE PAIN Pt endorses [...] Mobility Bed Mobility Exam: Scooting/Bridging Level of [place]: Stand-by assist Physical/Nonphysical Assist: Verbal Cues, Minimal cues Assistive Device: Overhead trapeze Bed Mobility Exam: Supine to Sit Level of [place]: Stand-by assist Physical/Nonphysical Assist: Verbal Cues, Minimal cues, HOB elevated Assistive Device: Overhead trapeze Bed Mobility Exam: Sit to Supine Level of [place]: Stand-by assist Physical/Nonphysical Assist: Verbal Cues, Minimal cues Assistive Device: Overhead trapeze Transfers Transfer Exam: Sit to stand Level of [place]: Maximum assist (25% patient's effort) Physical/Nonphysical Assist: Set-up required, Additional assist utilized for safety, Maximal cues, Verbal Cues, Nonverbal cues (demo/gestures) Assistive Device: Hand held assist Transfer Exam: Stand to Sit Level of [place]: Maximum assist (25% patient's effort) Physical/Nonphysical Assist: [...] session Participants in Care Family/Caregiver Present: No Sand Mixer: Not Applicable Presentation Oxygen Therapy: Supplemental oxygen [...] sequencing Bed Mobility Exam: Scooting/Bridging Level of [place]: Stand-by assist Physical/Nonphysical Assist: Verbal Cues, Minimal cues Assistive Device: Overhead trapeze Bed Mobility Exam: Supine to Sit Level of [place]: Stand-by assist Physical/Nonphysical Assist: Verbal Cues, Minimal cues, HOB elevated Assistive Device: Overhead trapeze Bed Mobility Exam: Sit to Supine Level of [place]: Stand-by assist Physical/Nonphysical Assist: Verbal Cues, Minimal [...] placement, sequencing, weight shifting, appropriate use of CELL TUBER MACHINE, and maintaining NWB on LLE. Tactile cues provided to assist in sequencing and weight shifting. Transfer Exam: Sit to stand Level of [place]: Maximum assist (25% patient's effort) Physical/Nonphysical Assist: Set-up required, Additional assist utilized for safety, Maximal cues, Verbal Cues, Nonverbal cues (demo/gestures) Assistive Device: Hand held assist Transfer Exam: Stand to Sit Level of [place]: Maximum assist (25% patient's effort) Physical/Nonphysical Assist: [...] assistance Static Standing - Interventions: Standing w CELL TUBER MACHINE Therapeutic Activity (40 minutes) See bed mobility, balance, and transfers sections for more detail. Standardized Assessments [facility] 6-Clicks Mobility Assessment Difficulty patient [...] climbing 3-5 steps with a railing?: Unable [facility] 6-Clicks Mobility Assessment Total : [...] Note Gonzalo Smalls 49 y.o. male CSN: [id number] Room/Bed 117/117A Nutrition evaluation type: follow-up Reason [...] Weight Evaluation: Extreme Obesity (BMI > 40) [place] Body Weight (kg): 80.9 Percent [place] Body Weight: 311 Adjusted Body Weight (kg): [...] Regular Adult Carbohydrate Restriction: Consistent CHO 2 ([id number] Steven, 80 g/meal) Adult Sodium Restriction: 2,000 mg Na Percent Meals Eaten (%): 100% of meals Diet Experience and Nutrition History: Diet Education Provided: Will monitor Pertinent home medications: Albuterol, Bumex, Insulin, Metformin, Ozempic, Aldactone Adventism needs: Nutrition Focused Physical Exam: Physical exam [...] chloride * Progress Notes - Lynda Choudhury, CNC SERVICE ENGINEER - 05/09/2025 8:09 AM EDT Endocrine - [...] continue to assess need -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 For after hours please [...] has been following with urology outpatient at [facility]. They have postulated this to be related to his diabetes and have had several voiding trials which have failed. Also has un dergone proctoscopy (?) which was normal. 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 For after hours please [...] Note Gonzalo Smalls 49 y.o. male CSN: [id number] Admission: 04/27/2025 9:29 PM Primary Problem: Diabetic [...] acute rehab. RNCM awaiting MD approval from [facility]. Liaison will reach out with answer. Will continue to follow. RNCM will continue to monitor for further discharge needs. Mayra Apodaca RN * Care Plan - Jeevan Shah RN - 05/08/2025 12:43 PM EDT Problem: Wound Goal: Optimal Wound Healing Outcome: Ongoing, Progressing Intervention: Promote Wound Healing Note: See recs, cont wound vac Patient evaluated by [facility] nurse, individualized recommendations placed and care [...] 05/08/2025 10:19 AM Wound Image Wound Assessment [place];Red (moist) Margins Well-defined edges [place]-Wound Assessment Intact [...] the video go to this web address: https://bit.[email or web address] Or, scan this QR code with your smart phone ?? [facility] * Thi Chavarria RN - 05/08/2025 10:55 AM EDT Images from the original note were not included. Type 2 diabetes: 7 Ways to Prevent Half-Way Complications - Video Watch this video to [...] the video go to this web address: https://bit.ly/[email or web address] Or, scan this QR code with your [...] to gently smooth the nail. Have a mind reader trim your nails if you can't see [...] remove corns, calluses, or warts by yourself. [id number] products can burn or damage your skin. [...] your primary care doctor or by a mind reader. This is a doctor who specializes in foot care. Some diabetes centers have regular foot clinics. Last Reviewed Date: 2024 00:00:00 ?? 0039-0816 [employer]. All rights reserved. This information is not [...] the video go to this web address: [email or web address] Or, scan this QR code with your smart phone ?? [facility] * Consults - Beatriz Hu DO - 05/08/2025 8:38 AM EDTAssociated Order(s): Inpatient consult to Urology Inpatient consult to Urology Consult performed by: Beatriz Hu DO Consult ordered by: Diane Guzman MD [facility] Urology Consult Note 05/08/25 Service Requesting Consultation: Hospital Medicine CC: urinary retention HPI: Gonzalo Smalls is a 49 y.o. male with a past urologic history of urinary retention, recurrent UTIs,BPH, morbid obesity who presented to [facility] ED with diabetic foot ulcer. [...] this he presented to an [facility] urologist Dr. Painting who stated to patient [...] (NEURONTIN) 600 mg, 3 times daily HYDROcodone-acetaminophen ([place]) 10-325 MG tablet 1 tablet, Every 6 hours PRN Insulin Pen Needle (Pen Coin) 31G X 5 MM misc USE TO [...] obesity and uncontrolled diabetes who presented to [facility] ED with diabetic foot ulcer. [...] this he presented to an [facility] urologist Dr. Painting who stated to patient [...] with a Dr. Mendenhall an [facility] urologist as this is closer to home [...] with a Dr. Mendenhall an [facility] urologist as this is closer to home [...] has been following with urology outpatient at [facility]. They have postulated this to be related to his diabetes and have had several voiding trials which have failed. Also has un dergone proctoscopy (?) which was normal. 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 and he [...] Mobility Bed Mobility Exam: Scooting/Bridging Level of [place]: Stand-by assist Physical/Nonphysical Assist: Verbal Cues Bed Mobility Exam: Supine to Sit Level of [place]: Contact guard Physical/Nonphysical Assist: Set-up required, Verbal Cues, Minimal cues Bed Mobility Exam: Sit to Supine Level of [place]: Minimum assist (75% patient's effort) Physical/Nonphysical Assist: Set-up required, Verbal Cues, Minimal cues Transfers Transfer Exam: Sit to stand Level of [place]: (Pt attempted with use of bariatric RW; [...] return to supine. Therapeutic Exercise Access Code: [email or web address] HEP printed and pt received copy with [...] provided based on observable deficits.* Level of [place] Interventions Grooming Patient demo's adequate BUE strength/ROM [...] maintain WB status. FUNCTIONAL MOBILITY Level of [place] Physical/Non-physical Assist Adaptive Equipment Utilized Scooting/ Bridging [...] Appearance Posture: Within Functional Limits Level of [place] Balance Support Static Sit Standby assist Feet supported Dynamic Sit Standby assisst Feet supported THERAPEUTIC EXERCISE INTERVENTIONS (10 minutes) Treatment Details The patient was educated re: implementation of BUE HEP in order to target muscle groups necessary for functional mobility and ADL independence. HEP printed and each exercise reviewed, pt verbalized understanding. 4th aspect Access Details (if appropriate) Access Code: [email or web address] URL: [email or web address] Date: 05/07/25 Exercises Included - Seated Elbow [...] has been following with urology outpatient at [facility]. They have postulated this to be related to his diabetes and have had several voiding trials which have failed. Also has un dergone proctoscopy (?) which was normal. 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 For after hours please [...] has been following with urology outpatient at [facility]. They have postulated this to be related to his diabetes and have had several voiding trials which have failed. Also has un dergone proctoscopy (?) which was normal. 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 For after hours please [...] is in abx, has his CHG and [place] wipes done in this shift Problem: Mobility [...] vascular surgery; wound vac applied 05/03 by [facility] Wound Assessment: Wound 05/01/25 Surgical Toe (Comment which one) Anterior;Right (Active) Date First Assessed/Time First Assessed: 05/01/25 0805 Present on Original Admission: No Hand Hygiene Completed: Yes Primary Wound Type: Surgical Location: Toe (Comment which one) Wound Location Orientation: Anterior;Right Assessments 05/05/2025 11:44 AM Wound Image Wound Assessment [place];Red (moist , full thickness) Margins Well-defined edges [...] no orders noted for wound vac, maessaged [facility] team for guidance. Orders placedfor [...] wound vac in use Patient evaluated by [facility] nurse, individualized recommendations placed and care plan interventions updated; see wound care note for details regarding recommendations to support optimal wound healing. * Progress Notes - Mayra Apodaca RN - 05/05/2025 12:30 PM EDT Case Management Adult Progress Note Gonzalo Smalls 49 y.o. male CSN: [id number] Admission: 04/27/2025 9:29 PM Primary Problem: Diabetic [...] No MDRO isolated 04/27/25 Blood culture NGTD [facility] Culture Data: - 04/25/25: Blood culture [...] pathology. Patient is planned to discharge to [facility]. Recommend close follow-up with vascular surgery [...] PA-C Division of Infectious Diseases Available by [employer] History, assessment, and plan discussed with [...] 8 Units Subcutaneous BID PRN Sarah Martinez, CNC SERVICE ENGINEER insulin NPH (Isophane) (HumuLIN N,NovoLIN N) injection [...] Daily Diane Guzman MD 800 mg at 848 metroNIDAZOLE (Flagyl) tablet 500 mg 500 mg [...] mellitus - type 2 -Home medications: CGM: Tower59 G7 Insulin regimen: U500 insulin: prescription for [...] via secure chat or page us at [phone] during 7a-7p, Thursday-Thursday. For after hours please [...] precautions. Bed Mobility Exam: Rolling/Turning Level of [place]: Contact guard Physical/Nonphysical Assist: Verbal Cues, Moderate cues Bed Mobility Exam: Scooting/Bridging Level of [place]: Stand-by assist Bed Mobility Exam: Supine to Sit Level of [place]: Contact guard Physical/Nonphysical Assist: Verbal Cues Bed Mobility Exam: Sit to Supine Level of [place]: Stand-by assist Patient performed rolling bilaterally for placement of lift pad. Transfers Transfer Exam: Sit to stand Level of [place]: (Patient unable to perform without engaging right [...] promote tempo and full ROM. Standardized Assessments [facility] 6-Clicks Mobility Assessment Difficulty patient [...] climbing 3-5 steps with a railing?: Unable [facility] 6-Clicks Mobility Assessment Total : [...] help from Spouse Level of Mobility Mobility [place] History of Falls ADL Performance Needs assistance [...] to therapy this date. Visitors Present No Sand Mixer (if applicable) OBJECTIVE PAIN Pain Score (0-10): [...] sba for bed mobility tasks. Level of [place] Adaptive Equipment Utilized Comments Feeding Grooming Setup washing face/hands Bathing Upper Body Dressing Lower Body Dressing Shoe Level of Assistance: Dependent Toileting IADLs Health Management Community Re-Entry BALANCE Postural Appearance INTERVENTIONS Level of [place] Balance Support Comments Static Sit Standby assist [...] weight shifting to promote safety. Level of [place] Physical/Non-physical Assist Adaptive Equipment Utilized Rolling/ Turning [...] No MDRO isolated 04/27/25 Blood culture NGTD [facility] Culture Data: - 04/25/25: Blood culture [...] PA-C Division of Infectious Diseases Available by [employer] History, assessment, and plan discussed with [...] mL IVPB (vial adapter required) 2 g [id number] Diane Guzman MD 36.7 mL/hr at 05/03/25 [...] Units Subcutaneous TID with meals Sarah Martinez, CNC SERVICE ENGINEER 30 Units at 05/03/251810 Insulin Lispro (Admelog, HumaLOG) 100 UNIT/ML injection 8 Units 8 Units Subcutaneous BID PRN Sarah Martinez P, CNC SERVICE ENGINEER insulin NPH (Isophane) (HumuLIN N,NovoLIN N) injection 50 Units 50 Units Subcutaneous BID Sarah Martinez P, CNC SERVICE ENGINEER 50 Units at 05/03/252043 ipratropium-albuterol (Duo-Neb) 0.5-2.5 [...] (H) 05/02/2025 I reviewed bg tracing [facility] glucose timeline 05/04/25 ASSESSMENT Hospital Course: [...] mellitus - type 2 -Home medications: CGM: DexSCSG [employer] G7 Insulin regimen: U500 insulin: prescription for [...] continue to assess need -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 For after hours please [...] from the original note were not included. [facility] Department of Surgery Division of Vascular Surgery 05/03/25 Gonzalo Smalls Subjective Subjective: HPI Goznalo Smalls is an 49 y.o. male admitted [...] an 49 y.o. male who presented to [facility] 04/27/2025 with diabetic foot ulcer now [...] Note Gonzalo Smalls 49 y.o. male CSN: [id number] Admission: 04/27/2025 9:29 PM Primary Problem: Diabetic [...] No MDRO isolated 04/27/25 Blood culture NGTD [facility] Culture Data: - 04/25/25: Blood culture [...] PA-C Division of Infectious Diseases Available by [employer] Chat History, assessment, and plan discussed with ID attending, Dr. 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 For after hours please [...] from the original note were not included. [facility] Department of Surgery Division of Vascular [...] degrees Note: See recs Patient evaluated by [facility] nurse, individualized recommendations placed and care [...] new issues or concerns Jeevan Shah RN [facility] 05/02/2025 12:54 PM * Query Clarification Note [...] No MDRO isolated 04/27/25 Blood culture NGTD [facility] Culture Data: - 04/25/25: Blood culture [...] PA-C Division of Infectious Diseases Available by [employer] Chat History, assessment, and plan discussed with [...] Subcutaneous TID with meals Sarah Martinez P, CNC SERVICE ENGINEER 24 Units at 05/02/25 0912 insulin NPH (Isophane) (HumuLIN N,NovoLIN N) injection 42 Units 42 Units Subcutaneous BID Sarah Martinez P, CNC SERVICE ENGINEER ipratropium-albuterol (Duo-Neb) 0.5-2.5 mg/3 mL nebulizer solution [...] Note Gonzalo Smalls 49 y.o. male CSN: [id number] Room/Bed 117/117A Nutrition evaluation type: assessment Reason [...] at bedside. Good appetite both now and BED SETTER. No known unintentional weight changes, UBW 570#. No chewing or swallowing difficulties. No N/V/D. Reports being constipated - finally had a BM today after 6 days though notes he feels he still needs to go. Agreeable to Kyree to aid in woundhealing. Vitals and Basic Assessment: BP: 132/75 Temp: 36.8 ??C (98.2 ??F) Oxygen Therapy: Supplemental oxygen O2 Delivery Method: Nasal cannula Collins Coma Scale Score: 15 Miguel Ángel Scale [...] Weight Evaluation: Extreme Obesity (BMI > 40) [place] Body Weight (kg): 80.9 Percent [place] Body Weight: 311 Adjusted Body Weight (kg): [...] Regular Adult Carbohydrate Restriction: Consistent CHO 1 (8936-6150 Steven, 65 g/meal) Adult Sodium Restriction: 2,000 mg Na Percent Meals Eaten (%): 68% avg x 5 meals Diet Experience and Nutrition History: Diet Education Provided: Will monitor Pertinent home medications: Albuterol, Bumex, Insulin, Metformin, Ozempic, Aldactone Adventism needs: Nutrition Focused Physical Exam: Physical exam [...] from the original note were not included. [facility] Department of Surgery Division of Vascular [...] 05/03/2025 8:47 AM EDT Associated attestation - Mray Vicente MD - 05/03/2025 8:47 AM EDT [...] snacking overnight while watching the games including [employer], goldfish, ritz crackers and other snacks -no [...] treatment -plan and management discussed with patient, religious educator, bedside RN NOTE: -Patient utilizes U500 insulin pen at home. With the U500 pen, a conversion is not needed. Typically patient's required a 70% reduction in home U500 dosing. 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 For after hours please [...] consulted and rec amputation vs transfer to [facility] for podiatry input about foot salvage : cannot transfer to [facility] given weight limit, pod team cannot come [...] Note Gonzalo Smalls 49 y.o. male CSN: [id number] Admission: 04/27/2025 9:29 PM Primary Problem: Diabetic [...] nursing staff. I have notified senior resident/attending dairy nutrition specialist with any issues or concerns. Leidy Velasco [...] bony pathology, duration TBD - Will contact [facility] tomorrow to check on urine culture [...] PA-C Division of Infectious Diseases Available by [employer] History, assessment, and plan discussed with [...] (Sublimaze) injection Intravenous PRN Muzic, Og A, COMMUNICATIONS PROGRAMMER 25 mcg at 05/01/25 0826 lactated Ringer's infusion Intravenous Continuous PRN Muzic, Og A, COMMUNICATIONS PROGRAMMER New Bag at 05/01/25 0728 midazolam (Versed) injection Intravenous PRN Muzic, Og A, COMMUNICATIONS PROGRAMMER 1 mg at 05/01/25 0757 [2] Allergies [...] mellitus - type 2 -Home medications: CGM: Tower59 G7 Insulin regimen: U500 insulin: prescription for [...] continue to assess need -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 For after hours please [...] AM EDT Operative Note Date: 05/01/25 Location: [facility] Name: Gonzalo Smalls, : 1975, Diagnoses: Pre-op Diagnosis Other chronic osteomyelitis of right foot (CMS/HCC) Post-op Diagnosis Other chronic osteomyelitis of right foot (CMS/HCC) Procedure(s): Right 5th toe ray amputation Attending Surgeon(s): * Mary Vicente - Primary Mutual Funds Agent(s): * Paula Martinez MD - Resident - [...] the wound bed. This extended more than retirement to the heel laterally. The underlying skin [...] consulted and rec amputation vs transfer to [facility] for podiatry input about foot salvage : cannot transfer to [facility] given weight limit, pod team cannot come [...] kg/m?? Labs and medications reviewed. 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 [facility] Department of Surgery Division of [...] He is unable to be transferred to [facility] for Podiatry due to weight Edited by: [...] 2LNC at night, recurrent UTIswho presented to [facility] with nonhealing right foot wound. Radiographs significant for cortical degeneration of fifth metatarsal and exam with evidence of exposed bone; high degree of suspicion for osteomyelitis Plan for foot debridement with possible 5th and 4th toe amputation tomorrow. Plan: -Please make the pt NPO tonight Edited by: Leiyd Velasco MD at 04/29/2025 1812 Dispo: Continue [...] kg/m?? Labs and medications reviewed. 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 For after hours please [...] Note Gonzalo Smalls 49 y.o. male CSN: [id number] Admission: 04/27/2025 9:29 PM Primary Problem: Diabetic foot ulcer Track Worker reviewed chart and spoke with patient at bedside to complete this Initial Case Management Assessment. PCP: Malcolm Hayward APRN Emergency Contact: Extended Emergency Contact Information Primary Emergency Contact: Maggie Smalls Mobile Relation: Spouse Preferred language: Citizen Of [place] Sand Mixer needed? No Insurance: Primary Visit Coverage Payer Plan Sponsor Code Group Number Group Name [facility] [id number] [employer] Primary Visit Coverage Subscriber Subscriber ID Subscriber Name Subscriber SSN Subscriber Address [id number] GONZALO SMALLS [id number] [address] [facility] [place] [id number] Secondary Visit Coverage Payer Plan Sponsor Code Group Number Group Name MEDICARE MEDICARE A & B Secondary Visit Coverage Subscriber Subscriber ID Subscriber Name Subscriber SSN Subscriber Address [id number] GONZALO SMALLS [id number] [address] [id number] Patient information: Primary Caregiver: Self Support System: Immediate family Daily Living Activities: Functional Status: Minimum assistance Living Arrangements: Spouse/Significant other, Children (daughter) Type of Residence: Private residence, Single Level (3 MICHAEL) [address] [address] Smoker in the Home?: No Current DME: [...] line dressing changes Living Will/Advance Directive/Power of Bailing Machine Operator /Guardian: None Additional Comments: Patient admitted [...] from the original note were not included. [facility] Department of Surgery Division of Vascular [...] night, recurrent UTIs who presented to the [facility] on 04/27/2025 with right foot wound. [...] History Administered Date(s) Administered Moderna COVID-19 Vaccine (Ham Smoker) 12+ years 01/25/2021, 02/22/2021 Pneumococcal Conjugate PCV [...] a day. 09/05/21 Yes Provider, Historical HYDROcodone-acetaminophen ([place]) 10-325 MG tablet Take 1 tablet by [...] Yes Provider, Historical Insulin Pen Needle (Pen Coin) 31G X 5 MM misc USE TO [...] 6 hours as needed for pain. Under [place] law, monthly prescriptions (30 days) can be [...] 2LNC at night, recurrent UTIswho presented to [facility] with nonhealing right foot wound. [...] Units Subcutaneous TID with meals Aileen Leonardo, CNC SERVICE ENGINEER 20 Units at 04/28/25 1155 insulin NPH [...] capsule 0.4 mg 0.4 mg Oral Daily yS De La Fuente APRN, DNP 0.4 mg [...] by mouth 3 times a day. HYDROcodone-acetaminophen ([place]) 10-325 MG tablet Take 1 tablet by [...] by mouth daily. Insulin Pen Needle (Pen Coin) 31G X 5 MM misc USE TO [...] [X] Family [ ] Friend [ ] Sand Mixer [X] Medical records HISTORY OF PRESENT ILLNESS: [...] and was treated in theemergency department at [facility] a few days ago where a [...] in the ED 2-3 days ago at [facility]. I contacted OSH who report blood [...] a day. 09/05/21 Yes Provider, Historical HYDROcodone-acetaminophen ([place]) 10-325 MG tablet Take 1 tablet by [...] Yes Provider, Historical Insulin Pen Needle (Pen Coin) 31G X 5 MM misc USE TO [...] 6 hours as needed for pain. Under [place] law, monthly prescriptions (30 days) can be [...] Will follow-up blood and urine cultures from [facility] for further ID/susceptibilities, obtained 04/25 - Please obtain adult ID screening labs: Hep A IgG, Hep B sAb, Hep B sAg, and Hep B total core Ab - Plan of care and recommendations discussed with patient's primary provider Thank you for allowing us to participate in this patient's care. ID will follow. Janelle Phan PA-C Division of Infectious Diseases Available by [employer] History, assessment, and plan discussed with [...] tablet 100 mg 100 mg Oral Daily yS De La Fuente APRN, DNP 100 mg [...] by mouth 3 times a day. HYDROcodone-acetaminophen (M[place]field) 10-325 MG tablet Take 1 tablet by [...] by mouth daily. Insulin Pen Needle (Pen Coin) 31G X 5 MM misc USE TO [...] back pain 04/22/2019 Hypertension 02/18/2019 Morbid obesity ([facility]) 12/24/2016 Procedures Past Medical History Patient has a past medical history of Acute kidney injury (05/19/2024), Alcohol abuse, in remission, Anxiety disorder, unspecified, Arthritis, Atrial fibrillation ([facility]), CAP (community acquired pneumonia) (05/19/2024), Cellulitis [...] in Care Family/Caregiver Present: Yes Family/Caregiver: Spouse Sand Mixer: Not Applicable Presentation Oxygen Therapy: None (Room [...] assist Patient/Family Goals Return home at [facility]. Objective Pain Pt reports 7/10 pain [...] pain. Bed Mobility Exam: Rolling/Turning Level of [place]: Maximum assist (25% patient effort) Physical/Nonphysical Assist: Verbal Cues, Moderate cues Assistive Device: Bed rails, Other (CELL TUBER MACHINE) Bed Mobility Exam: Scooting/Bridging Level of [place]: Maximum assist (25% patient's effort) (up in bed; Lester forward at EOB) Physical/Nonphysical Assist: Verbal Cues, Moderate cues Assistive Device: Bed rails Bed Mobility Exam: Supine to Sit Level of [place]: Maximum assist (25% patient's effort) Physical/Nonphysical Assist: Verbal Cues, Moderate cues, Set-up required, Additional assist utilized for safety Assistive Device: Other (CELL TUBER MACHINE) Bed Mobility Exam: Sit to Supine Level of [place]: Maximum assist (25% patient's effort) Physical/Nonphysical Assist: [...] space Standardized Assessments Standardized Assessments Standardized Assessments: [facility] 6-Clicks Mobility Assessment [facility] 6-Clicks Mobility Assessment Difficulty patient [...] climbing 3-5 steps with a railing?: Unable [facility] 6-Clicks Mobility Assessment Total : [...] remission, Anxiety disorder, unspecified, Arthritis, Atrial fibrillation ([facility]), CAP (community acquired pneumonia) (05/19/2024), Cellulitis [...] CARE Subjective Pt reports Visitors Present Spouse Sand Mixer (if applicable) PRESENTATION Oxygen Room Air Telemetry [...] help from Spouse Level of Mobility Mobility [place] History of Falls ADL Performance ADL Performance: [...] Mobility Bed Mobility Exam: Rolling/Turning Level of [place]: Maximum assist (25% patient effort) Physical/Nonphysical Assist: Verbal Cues, Moderate cues Assistive Device: Bed rails, Other (CELL TUBER MACHINE) Bed Mobility Exam: Scooting/Bridging Level of [place]: Maximum assist (25% patient's effort) (up in bed; Lester forward at EOB) Physical/Nonphysical Assist: Verbal Cues, Moderate cues Assistive Device: Bed rails Bed Mobility Exam: Supine to Sit Level of [place]: Maximum assist (25% patient's effort) Physical/Nonphysical Assist: Verbal Cues, Moderate cues, Set-up required, Additional assist utilized for safety Assistive Device: Other (CELL TUBER MACHINE) Bed Mobility Exam: Sit to Supine Level of [place]: Maximum assist (25% patient's effort) Physical/Nonphysical Assist: [...] POC an d discharge recommendations. STANDARDIZED ASSESSMENTS [facility] 6-Click Daily Activities Help from Other: Don/Doff Regular Lower Body Clothings: A lot Help From Other: Bathing: A lot Help From Other: Toileting: A lot Help From Other: Don/Doff Upper Body Clothings: None Help From Other: Grooming: None Help From Other: Eating Meals: None [facility] 6 Click - Daily Activities Score: 18 [...] 04/28/25 at 2:18 PM. 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 For after hours please [...] by mouth 3 times a day. HYDROcodone-acetaminophen ([place]field) 10-325 MG tablet Take 1 tablet by [...] by mouth daily. Insulin Pen Needle (Pen Coin) 31G X 5 MM [facility] USE TO INJECT INSULIN [...] 04/28/2025 6:09 AM EDTAssociated Order(s): Consult to [facility] Steve Images from the original note were not included. Consult to [facility] Rich Wilson Consult performed by: Sy [...] 6 hours as needed for pain. Under [place] law, monthly prescriptions (30 days) can be [...] times a day. 09/05/21 Provider, Historical HYDROcodone-acetaminophen ([place]field) 10-325 MG tablet Take 1 tablet by mouth every 6 hours as needed. Provider, Historical insulin NPH-insulin regular (NovoLIN 70/30 FlexPen) (70-30) 100 UNIT/ML injection pen Inject 90 Units under the skin 3 times a day before meals. FURTHER REFILLS WILL BE PROVIDED UPON ATTENDANCE OF NEXT OFFICE VISIT 03/29/25 02/22/25 Divine Archer APRN Insulin Pen Needle (Pen Coin) 31G X 5 MM [facility] USE TO INJECT INSULIN [...] Value Units Date/Time Blood Culture (Aerobic/Anaerobet Set) [[id number]] Collected: 04/27/252215 Order Status: Completed Specimen: Blood, Venous Updated: 04/28/25111 Culture Culture in lab Blood Culture (Aerobic/Anaerobet Set) [[id number]] Collected: 04/27/252215 Order Status: Completed Specimen: Blood, [...] Anxiety disorder, unspecified Anxiety Arthritis Atrial fibrillation ([facility]) CAP (community acquired pneumonia) 05/19/2024 Cellulitis 05/19/2024 [...] warmth, chills, vomiting. History provided by: Patient fusing furnace loader used: No I agree with the above [...] ???kidney infection?? where he was admitted at [facility]. Patient denies any shortness of [...] records from his previous hospital visit at [facility] showed he was being treated for an ESBL E coli UTI from the ertapenem and in discussion with our pharmacy team we initiated 1 dose of Merrem here in the ED as this would be appropriate coveragefor the foot infection as well as this [...] Ordered Status Ordering Provider 04/28/25541 Consult to [facility] Once Specialty: Internal Medicine Provider: [...] of Pseudomonas coverage. I spoke with the revising clerk to tryto get records from [facility] to see why he was being [...] and thedecisions made by me. Suman Natarajan, Resident 04/28/25 0626 Suman Natarajan DO Resident [...] Anxiety disorder, unspecified Anxiety Arthritis Atrial fibrillation ([facility]) CAP (community acquired pneumonia) 05/19/2024 Cellulitis [...] Description 06/22/2025 1:40 PM EST Office Visit [facility] [address] [place] [address] [address] [place] [address] Mary Vicente MD [address] [place] [address] [address] [place] [address] 06/23/2025 8:00 AM EST Office Visit [facility] [address] [place] [address] [address] [place] [address] Sheila Marcano, BLAS [address] [facility] [address] [place] [address] Scheduled Orders Name Type Priority Associated Diagnoses [...] 99 mg/dL 05/18/2025 8:11 AM EST [facility] Comment:Accuracy of a glucos e result [...] for testing. Comment 05/18/2025 8:11 AM EST [facility] Instructional Services Specialist ID Char Hinojosa 05/18/2025 8:11 AM EST [facility] Device ID [id number] 05/18/2025 8:11 AM EST [facility] Specimen Type POC Capillary 05/18/2025 8:11 AM EST [facility] Blood Capillary blood specimen / Unknown 05/18/2025 8:09 AM EST 05/18/2025 8:11 AM EST Umar R Jay Jay DO LAB POINT OF CARE TE ST DOCKED DEVICE UNSOLICITED RESULTS Final Result [facility] [address] [place] [id number] * (ABNORMAL) POCT glucose meter (05/17/2025 7:54 [...] 05/17/2025 7:55 PM EST [facility] Instructional Services Specialist ID Ron Lal 7:55 PM EST [facility] Device ID [id number] 05/17/2025 7:55 PM EST [facility] Specimen Type POC Capillary 05/17/2025 7:55 PM EST [facility] Blood Capillary blood specimen / Unknown 05/17/2025 7:54 PM EST 05/17/2025 7:55 PM EST Wily Goyal DO LAB POINT OF CARE TE ST DOCKED DEVICE UNSOLICITED RESULTS Final Result Performing Organization Address City/[facility] de Phone Number [facility] [address] [place] [address] * (ABNORMAL) POCT glucose meter (05/17/2025 5:13 [...] 05/17/2025 5:14 PM EST [facility] Instructional Services Specialist ID Char Hinojosa 05/17/2025 5:14 PM EST [facility] Device ID [id number] 05/17/2025 5:14 PM EST [facility] Specimen Type POC Capillary 05/17/2025 5:14 PM EST [facility] Blood Capillary blood specimen / Unknown 05/17/2025 5:13 PM EST 05/17/2025 5:14 PM EST Wily Goyal DO LAB POINT OF CARE TE ST DOCKED DEVICE UNSOLICITED RESULTS Final Result [facility] [address] [place] [address] * (ABNORMAL) POCT glucose meter (05/17/2025 1:01 PM EST) [facility] POCT Glucose 191(H) 74 - 99 mg/dL [...] 05/31/2025 3:12 PM EST [facility] Instructional Services Specialist ID Char Hinojosa 05/31/2025 3:12 PM EST [facility]ALTHCARE LAB Device ID [id number] 05/31/2025 3:12 PM EST [facility] Specimen Type POC Capillary 05/31/2025 3:12 PM EST [facility] Blood Capillary blood specimen / Unknown 05/17/2025 1:01 PM EST 05/31/2025 3:12 PM EST us Wily Goyal DO LAB POINT OF CARE TE ST DOCKED DEVICE UNSOLICITED RESULTS Final Result Performing Organization Address [facility] de Phone Number [facility] [address] [place] [address] * ECHO, ADULT TRANSTHORACIC COMPLETE W/ CONTRAST [...] % HANK ISCV LV EDV(MOD-2ch) 262 mL HNAK ISCV LV ESV(MOD2ch) 130 mL HANK ISCV [...] is no recent study available for direct [id number] comparison. Left Ventricle The left ventricle is [...] is no recent study available for direct [id number] comparison. Wily Goyal DO CV ECHO PROCEDURES Final Result * (ABNORMAL) POCT glucose meter (05/17/2025 8:52 AM EST) [facility] POCT Glucose 225(H) 74 - 99 mg/dL 05/31/2025 3:12 PM EST [facility] Comment:Accuracy of a glucos e result [...] for testing. Comment 05/31/2025 3:12 PM EST [facility] Instructional Services Specialist ID Char Hinojosa 05/31/2025 3:12 PM EST [facility] Device ID [id number] 05/31/2025 3:12 PM EST [facility] Specimen Type POC Capillary 05/31/2025 3:12 PM EST [facility] Blood Capillary blood specimen / Unknown 05/17/2025 8:52 AM EST 05/31/2025 3:12 PM EST [facility] Jay DO LAB POINT OF CARE TE ST DOCKED DEVICE UNSOLICITED RESULTS Final Result [facility] [address] [place] [address] * (ABNORMAL) POCT glucose meter (05/16/2025 9:28 PM EST) [facility] POCT Glucose 199(H) 74 - 99 mg/dL [...] 05/31/2025 3:12 PM EST [facility] Instructional Services Specialist ID Jamal Soriano 3:12 PM EST [facility] Device ID [id number] 05/31/2025 3:12 PM EST [facility] Specimen Type POC Capillary 05/31/2025 3:12 PM EST [facility] Blood Capillary blood specimen / Unknown 05/16/2025 9:28 PM EST 05/31/2025 3:12 PM EST Wily Goyal DO LAB POINT OF CARE TE ST DOCKED DEVICE UNSOLICITED RESULTS Final Result [facility] [address] [place] [address] * (ABNORMAL) POCT glucose meter (05/16/2025 5:37 PM EST) [facility] [...] 05/16/2025 5:39 PM EST [facility] Instructional Services Specialist ID Char Hinojosa 05/16/2025 5:39 PM EST [facility] Device ID [id number] 05/16/2025 5:39 PM EST [facility] Specimen Type POC Capillary 05/16/2025 5:39 PM EST [facility] Blood Capillary blood specimen / Unknown 05/16/2025 5:37 PM EST 05/16/2025 5:39 PM EST Umar Rodrick Goyal DO LAB POINT OF CARE TE ST DOCKED DEVICE UNSOLICITED RESULTS Final Result [facility] [address] [place] [address] * ECG Adult (05/16/2025 3:33 PM EST) EKG DIAGNOSIS CLASS Abnormal MUSE ECG Ventricular Rate 58 BPM MUSE ECG Atrial Rate 58 BPM MUSE ECG OK Interval 184 ms MUSE ECG QRSD Interval 158 ms MUSE ECG QT Interval 496 ms MUSE ECG QTC Interval 486 ms MUSE ECG P Pollock 30 degrees MUSE ECG R Pollock -35 degrees MUSE ECG T Wave Pollock -5 degrees MUSE ECG Diagnosis Sinus bradycardia [...] ECG ORDERABLES Final Result Performing Organization Address [facility] de Phone Number MUSE ECG * (ABNORMAL) POCT glucose meter (05/16/2025 12:06 PM EST) Pathologist [facility] POCT Glucose 161(H) 74 - 99 mg/dL 05/16/2025 12:07 PM EST [facility] Comment:Accuracy of a glucos e result [...] 05/16/2025 12:07 PM EST [facility] Instructional Services Specialist ID Char Hinojosa 05/16/2025 12:07 PM EST [facility] Device ID [id number] 05/16/2025 12:07 PM EST [facility] Specimen Type POC Capillary 05/16/2025 12:07 PM EST [facility] Blood Capillary blood specimen / Unknown 05/16/2025 12:06 PM EST 05/16/2025 12:07 PM EST us Selin Lee MD LAB POINT OF CARE TE ST DOCKED DEVICE UNSOLICITED RESULTS Final Result Performing Organization Address City/[facility]/ZIP Co de Phone Number [facility] [address] [place] [address] * (ABNORMAL) POCT glucose meter (05/16/2025 8:17 AM EST) POCT Glucose 168(H) 74 - 99 mg/dL 05/16/2025 8:21 AM EST [facility] Comment:Accuracy of a glucos e result [...] for testing. Comment 05/16/2025 8:21 AM EST [facility] Instructional Services Specialist ID Char Hinojosa 05/16/2025 8:21 AM EST [facility] Device ID [id number] 05/16/2025 8:21 AM EST [facility] Specimen Type POC Capillary 05/16/2025 8:21 AM EST [facility] Blood Capillary blood specimen / Unknown 05/16/2025 8:17 AM EST 05/16/2025 8:21 AM EST us Selin Lee MD LAB POINT OF CARE TE ST DOCKED DEVICE UNSOLICITED RESULTS Final Result Performing Organization Address City/[facility]/ZIP Co de Phone Number [facility] [address] [place] [address] * (ABNORMAL) CBC and Differential (05/16/2025 4:08 AM EST) WBC Count 7.97 3.70 - 10.30 10*3/uL LAB HEMATOLOGY METHOD 05/16/2025 4:26 AM EST [facility] RBC Count 4.27(L) 4.60 - 6.10 10*6/uL LAB HEMATOLOGY METHOD 05/16/2025 4:26 AM EST [facility] HGB 9.5(L) 13.7 - 17.5 g/dL LAB HEMATOLOGY METHOD 05/16/2025 4:26 AM [facility] HCT 31.6(L) 40.0 - 51.0 % LAB HEMATOLOGY METHOD 05/16/2025 4:26 AM EST [facility] Platelet Count 264 155 - 369 10*3/uL LAB HEMATOLOGY METHOD 05/16/2025 4:26 AM EST [facility] MCV 74(L) 79 - 98 fL LAB HEMATOLOGY METHOD 05/16/2025 4:26 AM [facility] MCH 22.2(L) 26.0 - 32.0 pg LAB HEMATOLOGY METHOD 05/16/2025 4:26 AM [facility] MCHC 30.1(L) 30.7 - 35.5 g/dL LAB HEMATOLOGY METHOD 05/16/2025 4:26 AM [facility] RDW 17.9(H) 11.5 - 14.5 % LAB HEMATOLOGY METHOD 05/16/2025 4:26 AM [facility] MPV 9.2 8.8 - 12.5 fL LAB HEMATOLOGY METHOD 05/16/2025 4:26 AM [facility] nRBC 0.0 <=0.0 per 100 WBCs LAB HEMATOLOGY METHOD 05/16/2025 4:26 AM [facility] Differential Type Automated LAB HEMATOLOGY METHOD 05/16/2025 4:26 AM [facility] Neutrophils % 67 % LAB HEMATOLOGY METHOD 05/16/2025 4:26 AM [facility] Lymphocytes % 16 % LAB HEMATOLOGY METHOD 05/16/2025 4:26 AM [facility] Monocytes % 12 % LAB HEMATOLOGY METHOD 05/16/2025 4:26 AM [facility] Eosinophils % 3 % LAB HEMATOLOGY METHOD 05/16/2025 4:26 AM [facility] Basophils % 1 % LAB HEMATOLOGY METHOD 05/16/2025 4:26 AM EST [facility] Immature Granulocytes % 1 % LAB HEMATOLOGY METHOD 05/16/2025 4:26 AM [facility] Neutrophils Absolute 5.39 1.60 - 6.10 10*3/uL LAB HEMATOLOGY METHOD 05/16/2025 4:26 AM EST [facility] Lymphocytes Absolute 1.30 1.20 - 3.90 10*3/uL LAB HEMATOLOGY METHOD 05/16/2025 4:26 AM EST [facility] Monocytes Absolute 0.93(H) 0.30 - 0.90 10*3/uL LAB HEMATOLOGY METHOD 05/16/2025 4:26 AM EST [facility] Eosinophils Absolute 0.26 0.00 - 0.50 10*3/uL LAB HEMATOLOGY METHOD 05/16/2025 4:26 AM EST [facility] Basophils Absolute 0.05 0.00 - 0.10 10*3/uL LAB HEMATOLOGY METHOD 05/16/2025 4:26 AM EST [facility] Immature Granulocytes Absolute 0.04 0.00 - 0.06 10*3/uL LAB HEMATOLOGY METHOD 05/16/2025 4:26 AM EST [facility] Blood Venous blood specimen / Unknown Venipuncture / Unknown 05/16/2025 4:08 AM EST 05/16/2025 4:17 AM EST Narrative [facility] - 05/16/2025 4:26 AM EST Therapeutic decision making should be based on absolute values, rather than percentages. us Selin Lee MD LAB BLOOD ORDERABLES Final Re sult [facility] [address] [place] [address] * (ABNORMAL) Magnesium, Plasma (05/16/2025 4:08 AM EST) Magnesium, Plasma 1.8(L) 1.9 - 2.4 mg/dL 05/16/2025 4:48 AM EST [facility] Blood Venous blood specimen / Unknown Venipuncture / Unknown 05/16/2025 4:08 AM EST 05/16/2025 4:16 AM EST us Selin Lee MD LAB BLOOD ORDERABLES Final Re sult [facility] [address] [place] [address] * (ABNORMAL) Basic Metabolic Panel, Plasma (05/16/2025 4:08 AM EST) Glucose, Plasma 168(H) 74 - 99 mg/dL 05/16/2025 4:48 AM EST [facility] BUN, Plasma 19 7 - 21 mg/dL 05/16/2025 4:48 AM EST [facility] Creatinine, Plasma 0.86 0.70 - 1.20 mg/dL 05/16/2025 4:48 AM EST [facility] BUN/Creatinine Ratio 22 05/16/2025 4:48 AM EST [facility] Sodium, Plasma 131(L) 136 - 145 mmol/L 05/16/2025 4:48 AM EST [facility] Potassium, Plasma 3.6 3.6 - 4.9 mmol/L 05/16/2025 4:48 AM EST [facility] Chloride, Plasma 88(L) 97 - 107 mmol/L 05/16/2025 4:48 AM EST [facility] CO2, Plasma 34(H) 22 - 29 mmol/L 05/16/2025 4:48 AM EST [facility] Anion Gap 9 6 - 16 mmol/L 05/16/2025 4:48 AM EST [facility] Total Calcium, Plasma 9.3 8.9 - 10.2 mg/dL 05/16/2025 4:48 AM EST [facility] eGFRcr 107.5 mL/min/1.7 3m*2 05/16/2025 4:48 AM EST [facility] Comment:Reported eGFRcr in m L/min/1.73m2 is based the CKD-EPI 2020 equation that does not use a race coefficient. Blood Venous blood specimen / Unknown Venipuncture / Unknown 05/16/2025 4:08 AM EST 05/16/2025 4:16 AM EST us Selin Lee MD LAB BLOOD ORDERABLES Final Re sult [facility] [address] [place] [address] * Phosphorus, Plasma (05/16/2025 4:08 AM EST) [facility] Phosphorus, Plasma 3.7 2.5 - 4.5 mg/dL 05/16/2025 4:48 AM EST [facility] Blood Venous blood specimen / Unknown Venipuncture / Unknown 05/16/2025 4:08 AM EST 05/16/2025 4:16 AM EST us Selin Lee MD LAB BLOOD ORDERABLES Final Re sult Performing Organization Address City/[facility]/ZIP Co de Phone Number [facility] [address] [place] [address] * (ABNORMAL) POCT glucose meter (05/15/2025 8:00 [...] 05/15/2025 8:02 PM EST [facility] Instructional Services Specialist ID Timo Campbell 8:02 PM EST [facility] Device ID [id number] 05/15/2025 8:02 PM EST [facility] Specimen Type POC Capillary 05/15/2025 8:02 PM EST [facility] Blood Capillary blood specimen / Unknown 05/15/2025 8:00 PM EST 05/15/2025 8:02 PM EST us Selin Lee MD LAB POINT OF CARE TE ST DOCKED DEVICE UNSOLICITED RESULTS Final Result [facility] [address] [place] [address] * (ABNORMAL) POCT glucose meter (05/15/2025 4:52 [...] 05/15/2025 4:53 PM EST [facility] Instructional Services Specialist ID Char Hinojosa 05/15/2025 4:53 PM EST [facility] Device ID [id number] 05/15/2025 4:53 PM EST [facility] Specimen Type POC Capillary 05/15/2025 4:53 PM EST [facility] Blood Capillary blood specimen / Unknown 05/15/2025 4:52 PM EST 05/15/2025 4:53 PM EST Selin Lee MD LAB POINT OF CARE TE ST DOCKED DEVICE UNSOLICITED RESULTS Final Result [facility] [address] [place] [address] * (ABNORMAL) POCT glucose meter (05/15/2025 12:46 [...] 05/15/2025 12:48 PM EST [facility] Instructional Services Specialist ID Santy Garcia 05/15/2025 12:48 PM EST [facility] Device ID [id number] 05/15/2025 12:48 PM EST [facility] Specimen Type POC Capillary 05/15/2025 12:48 PM EST [facility] Blood Capillary blood specimen / Unknown 05/15/2025 12:46 PM EST 05/15/2025 12:48 PM EST us Selin Lee MD LAB POINT OF CARE TE ST DOCKED DEVICE UNSOLICITED RESULTS Final Result Performing Organization Address [facility] de Phone Number [facility] [address] [place] [address] * (ABNORMAL) POCT glucose meter (05/15/2025 11:31 [...] for testing. Comment 05/15/2025 11:33 AM EST [facility] Instructional Services Specialist ID Char Hinojosa 05/15/2025 11:33 AM EST [facility] Device ID [id number] 05/15/2025 11:33 AM EST [facility] Specimen Type POC Capillary 05/15/2025 11:33 AM EST [facility] Blood Capillary blood specimen / Unknown 05/15/2025 11:31 AM EST 05/15/2025 11:33 AM EST us Selin Lee MD LAB POINT OF CARE TE ST DOCKED DEVICE UNSOLICITED RESULTS Final Result Performing Organization Address City/[facility] Co de Phone Number [facility] [address] [place] [address] * (ABNORMAL) POCT glucose meter (05/15/2025 8:12 [...] Comment 05/15/2025 8:14 AM EST [facility] Instructional Services Specialist ID Char Hinojosa 05/15/2025 8:14 AM EST [facility] Device ID [id number] 05/15/2025 8:14 AM EST [facility] Specimen Type POC Capillary 05/15/2025 8:14 AM EST [facility] Blood Capillary blood specimen / Unknown 05/15/2025 8:12 AM EST 05/15/2025 8:14 AM EST us Selin Lee MD LAB POINT OF CARE TE ST DOCKED DEVICE UNSOLICITED RESULTS Final Result Performing Organization Address City/State/[facility] Co de Phone Number [facility] [address] [place] [id number] * (ABNORMAL) CBC and Differential (05/15/2025 2:24 AM EST) WBC Count 8.81 3.70 - 10.30 10*3/uL LAB HEMATOLOGY METHOD 05/15/2025 2:41 AM EST [facility] RBC Count 4.49(L) 4.60 - 6.10 10*6/uL LAB HEMATOLOGY METHOD 05/15/2025 2:41 AM EST [facility] HGB 9.9(L) 13.7 - 17.5 g/dL LAB HEMATOLOGY METHOD 05/15/2025 2:41 AM EST [facility] HCT 33.3(L) 40.0 - 51.0 % LAB HEMATOLOGY METHOD 05/15/2025 2:41 AM EST [facility] Platelet Count 286 155 - 369 10*3/uL LAB HEMATOLOGY METHOD 05/15/2025 2:41 AM EST [facility] MCV 74(L) 79 - 98 fL LAB HEMATOLOGY METHOD 05/15/2025 2:41 AM EST [facility] MCH 22.0(L) 26.0 - 32.0 pg LAB HEMATOLOGY METHOD 05/15/2025 2:41 AM EST [facility] MCHC 29.7(L) 30.7 - 35.5 g/dL LAB HEMATOLOGY METHOD 05/15/2025 2:41 AM EST [facility] RDW 17.8(H) 11.5 - 14.5 % LAB HEMATOLOGY METHOD 05/15/2025 2:41 AM [facility] MPV 9.4 8.8 - 12.5 fL LAB HEMATOLOGY METHOD 05/15/2025 2:41 AM [facility] nRBC 0.0 <=0.0 per 100 WBCs LAB HEMATOLOGY METHOD 05/15/2025 2:41 AM [facility] Differential Type Automated LAB HEMATOLOGY METHOD 05/15/2025 2:41 AM [facility] Neutrophils % 71 % LAB HEMATOLOGY METHOD 05/15/2025 2:41 AM [facility] Lymphocytes % 14 % LAB HEMATOLOGY METHOD 05/15/2025 2:41 AM [facility] Monocytes % 11 % LAB HEMATOLOGY METHOD 05/15/2025 2:41 AM [facility] Eosinophils % 3 % LAB HEMATOLOGY METHOD 05/15/2025 2:41 AM [facility] Basophils % 1 % LAB HEMATOLOGY METHOD 05/15/2025 2:41 AM [facility] Immature Granulocytes % 0 % LAB HEMATOLOGY METHOD 05/15/2025 2:41 AM [facility] Neutrophils Absolute 6.25(H) 1.60 - 6.10 10*3/uL LAB HEMATOLOGY METHOD 05/15/2025 2:41 AM [facility] Lymphocytes Absolute 1.27 1.20 - 3.90 10*3/uL LAB HEMATOLOGY METHOD 05/15/2025 2:41 AM [facility] Monocytes Absolute 0.95(H) 0.30 - 0.90 10*3/uL LAB HEMATOLOGY METHOD 05/15/2025 2:41 AM [facility] Eosinophils Absolute 0.27 0.00 - 0.50 10*3/uL LAB HEMATOLOGY METHOD 05/15/2025 2:41 AM [facility] Basophils Absolute 0.04 0.00 - 0.10 10*3/uL LAB HEMATOLOGY METHOD 05/15/2025 2:41 AM [facility] Immature Granulocytes Absolute 0.03 0.00 - 0.06 10*3/uL LAB HEMATOLOGY METHOD 05/15/2025 2:41 AM [facility] Blood Venous blood specimen / Unknown Venipuncture / Unknown 05/15/2025 2:24 AM EST 05/15/2025 2:33 AM EST Narrative [facility] - 05/15/2025 2:41 AM EST Therapeutic decision making should be based on absolute values, rather than percentages. us Selin Lee MD LAB BLOOD ORDERABLES Final Re sult Performing Organization Address [facility] Co de Phone Number [facility] [address] [place] [address] * (ABNORMAL) Magnesium, Plasma (05/15/2025 2:24 AM EST) Magnesium, Plasma 1.8(L) 1.9 - 2.4 mg/dL 05/15/2025 3:03 AM EST [facility] Blood Venous blood specimen / Unknown Venipuncture / Unknown 05/15/2025 2:24 AM EST 05/15/2025 2:32 AM EST us Selin Lee MD LAB BLOOD ORDERABLES Final Re sult Performing Organization Address [facility] Co de Phone Number [facility] [address] [place] [address] * (ABNORMAL) Basic Metabolic Panel, Plasma (05/15/2025 2:24 AM EST) Glucose, Plasma 162(H) 74 - 99 mg/dL 05/15/2025 3:03 AM EST [facility] BUN, Plasma 15 7 - 21 mg/dL 05/15/2025 3:03 AM EST [facility] Creatinine, Plasma 0.91 0.70 - 1.20 mg/dL 05/15/2025 3:03 AM EST [facility] BUN/Creatinine Ratio 16 05/15/2025 3:03 AM EST [facility] Sodium, Plasma 133(L) 136 - 145 mmol/L 05/15/2025 3:03 AM EST [facility] Potassium, Plasma 3.3(L) 3.6 - 4.9 mmol/L 05/15/2025 3:03 AM EST [facility] Chloride, Plasma 87(L) 97 - 107 mmol/L 05/15/2025 3:03 AM EST [facility] CO2, Plasma 37(H) 22 - 29 mmol/L 05/15/2025 3:03 AM EST [facility] Anion Gap 9 6 - 16 mmol/L 05/15/2025 3:03 AM EST [facility] Total Calcium, Plasma 9.2 8.9 - 10.2 mg/dL 05/15/2025 3:03 AM EST [facility] eGFRcr 104.6 mL/min/1.7 3m*2 05/15/2025 3:03 AM EST [facility] Comment:Reported eGFRcr in m L/min/1.73m2 is based the CKD-EPI 2020 equation that does not use a race coefficient. Blood Venous blood specimen / Unknown Venipuncture / Unknown 05/15/2025 2:24 AM EST 05/15/2025 2:32 AM EST Selin Lee MD LAB BLOOD ORDERABLES Final Re sult [facility] [address] [place] [address] * Phosphorus, Plasma (05/15/2025 2:24 AM EST) Phosphorus, Plasma 3.7 2.5 - 4.5 mg/dL 05/15/2025 3:03 AM EST [facility] Blood Venous blood specimen / Unknown Venipuncture / Unknown 05/15/2025 2:24 AM EST 05/15/2025 2:32 AM EST Selin Lee MD LAB BLOOD ORDERABLES Final Re sult [facility] [address] [place] [address] * (ABNORMAL) POCT glucose meter (05/14/2025 8:09 PM EST) POCT Glucose 194(H) 74 - 99 mg/dL 05/14/2025 8:11 PM EST [facility] Comment:Accuracy of a glucos e result [...] Comment 05/14/2025 8:11 PM EST [facility] Instructional Services Specialist ID Stella Coleman 05/14/20 8:11 PM EST [facility] Device ID [id number] 05/14/2025 8:11 PM EST [facility] Specimen Type POC Capillary 05/14/2025 8:11 PM EST [facility] Blood Capillary blood specimen / Unknown 05/14/2025 8:09 PM EST 05/14/2025 8:11 PM EST us Selin Lee MD LAB POINT OF CARE TE ST DOCKED DEVICE UNSOLICITED RESULTS Final Result Performing Organization Address City/State/[facility] Co de Phone Number [facility] [address] [place] [address] * (ABNORMAL) POCT glucose meter (05/14/2025 5:10 PM EST) [facility] POCT Glucose 320(H) 74 - 99 mg/dL 05/14/2025 5:13 PM EST [facility] Comment:Accuracy of a glucos e result [...] 05/14/2025 5:13 PM EST [facility] Instructional Services Specialist ID Dunia Montgomery 05/14/2025 5:13 PM EST [facility] Device ID [id number] 05/14/2025 5:13 PM EST [facility] Specimen Type POC Capillary 05/14/2025 5:13 PM EST [facility] Blood Capillary blood specimen / Unknown 05/14/2025 5:10 PM EST 05/14/2025 5:13 PM EST us Selin Lee MD LAB POINT OF CARE TE ST DOCKED DEVICE UNSOLICITED RESULTS Final Result Performing Organization Address [facility] Co de Phone Number [facility] [address] [place] [address] * (ABNORMAL) POCT glucose meter (05/14/2025 12:15 PM EST) [facility] POCT Glucose 260(H) 74 - 99 mg/dL [...] 05/14/2025 4:51 PM EST [facility] Instructional Services Specialist ID Dunia Montgomery 05/14/2025 4:51 PM EST [facility] Device ID [id number] 05/14/2025 4:51 PM EST [facility] Specimen Type POC Capillary 05/14/2025 4:51 PM EST [facility] Blood Capillary blood specimen / Unknown 05/14/2025 12:15 PM EST 05/14/2025 4:51 PM EST Selin Lee MD LAB POINT OF CARE TE ST DOCKED DEVICE UNSOLICITED RESULTS Final Result Performing Organization Address [facility] Co de Phone Number [facility] [address] [place] [address] * (ABNORMAL) POCT glucose meter (05/14/2025 8:30 AM EST) [facility] POCT Glucose 321(H) 74 - 99 mg/dL [...] 05/14/2025 8:33 AM EST [facility] Instructional Services Specialist ID Dunia Montgomery 05/14/2025 8:33 AM EST [facility] Device ID [id number] 05/14/2025 8:33 AM EST [facility] Specimen Type POC Capillary 05/14/2025 8:33 AM EST [facility] Blood Capillary blood specimen / Unknown 05/14/2025 8:30 AM EST 05/14/2025 8:33 AM EST Selin Lee MD LAB POINT OF CARE TE ST DOCKED DEVICE UNSOLICITED RESULTS Final Result Performing Organization Address City/[facility]/ZIP Co de Phone Number [facility] [address] [place] [address] * (ABNORMAL) POCT glucose meter (05/14/2025 4:49 AM EST) Pathologist [facility] POCT Glucose 306(H) 74 - 99 mg/dL 05/31/2025 3:12 PM EST [facility] Comment:Accuracy of a glucos e result [...] for testing. Comment 05/31/2025 3:12 PM EST [facility] Instructional Services Specialist ID Asiya Nix 025 3:12 PM EST [facility] Device ID [id number] 05/31/2025 3:12 PM EST [facility] Specimen Type POC Capillary 05/31/2025 3:12 PM EST [facility] Blood Capillary blood specimen / Unknown 05/14/2025 4:49 AM EST 05/31/2025 3:12 PM EST us Wily Goyal DO LAB POINT OF CARE TE ST DOCKED DEVICE UNSOLICITED RESULTS Final Result Performing Organization Address City/[facility]/ZIP Co de Phone Number [facility] [address] [place] [address] * (ABNORMAL) CBC and Differential (05/14/2025 1:45 AM EDT) WBC Count 7.88 3.70 - 10.30 10*3/uL LAB HEMATOLOGY METHOD 05/14/2025 2:47 AM EST [facility] RBC Count 4.25(L) 4.60 - 6.10 10*6/uL LAB HEMATOLOGY METHOD 05/14/2025 2:47 AM EST [facility] HGB 9.7(L) 13.7 - 17.5 g/dL LAB HEMATOLOGY METHOD 05/14/2025 2:47 AM EST [facility] HCT 31.7(L) 40.0 - 51.0 % LAB HEMATOLOGY METHOD 05/14/2025 2:47 AM EST [facility] Platelet Count 273 155 - 369 10*3/uL LAB HEMATOLOGY METHOD 05/14/2025 2:47 AM EST [facility] MCV 75(L) 79 - 98 fL LAB HEMATOLOGY METHOD 05/14/2025 2:47 AM [facility] MCH 22.8(L) 26.0 - 32.0 pg LAB HEMATOLOGY METHOD 05/14/2025 2:47 AM [facility] MCHC 30.6(L) 30.7 - 35.5 g/dL LAB HEMATOLOGY METHOD 05/14/2025 2:47 AM [facility] RDW 17.9(H) 11.5 - 14.5 % LAB HEMATOLOGY METHOD 05/14/2025 2:47 AM [facility] MPV 9.6 8.8 - 12.5 fL LAB HEMATOLOGY METHOD 05/14/2025 2:47 AM [facility] nRBC 0.0 <=0.0 per 100 WBCs LAB HEMATOLOGY METHOD 05/14/2025 2:47 AM EST [facility] Differential Type Automated LAB HEMATOLOGY METHOD 05/14/2025 2:47 AM [facility] Neutrophils % 66 % LAB HEMATOLOGY METHOD 05/14/2025 2:47 AM [facility] Lymphocytes % 18 % LAB HEMATOLOGY METHOD 05/14/2025 2:47 AM EST [facility] Monocytes % 11 % LAB HEMATOLOGY METHOD 05/14/2025 2:47 AM [facility] Eosinophils % 4 % LAB HEMATOLOGY METHOD 05/14/2025 2:47 AM [facility] Basophils % 1 % LAB HEMATOLOGY METHOD 05/14/2025 2:47 AM EST [facility] Immature Granulocytes % 0 % LAB HEMATOLOGY METHOD 05/14/2025 2:47 AM EST [facility] Neutrophils Absolute 5.20 1.60 - 6.10 10*3/uL LAB HEMATOLOGY METHOD 05/14/2025 2:47 AM EST [facility] Lymphocytes Absolute 1.44 1.20 - 3.90 10*3/uL LAB HEMATOLOGY METHOD 05/14/2025 2:47 AM EST [facility] Monocytes Absolute 0.85 0.30 - 0.90 10*3/uL LAB HEMATOLOGY METHOD 05/14/2025 2:47 AM EST [facility] Eosinophils Absolute 0.30 0.00 - 0.50 10*3/uL LAB HEMATOLOGY METHOD 05/14/2025 2:47 AM EST [facility] Basophils Absolute 0.06 0.00 - 0.10 10*3/uL LAB HEMATOLOGY METHOD 05/14/2025 2:47 AM EST [facility] Immature Granulocytes Absolute 0.03 0.00 - 0.06 10*3/uL LAB HEMATOLOGY METHOD 05/14/2025 2:47 AM EST [facility] Blood Venous blood specimen / Unknown Venipuncture / Unknown 05/14/2025 1:45 AM EDT 05/14/2025 2:24 AM EST Narrative [facility] - 05/14/2025 2:47 AM EST Therapeutic decision making should be based on absolute values, rather than percentages. us Selin Lee MD LAB BLOOD ORDERABLES Final Re sult [facility] [address] [place] [address] * (ABNORMAL) Magnesium, Plasma (05/14/2025 1:45 AM EDT) Magnesium, Plasma 1.7(L) 1.9 - 2.4 mg/dL 05/14/2025 2:58 AM EST [facility] Blood Venous blood specimen / Unknown Venipuncture / Unknown 05/14/2025 1:45 AM EDT 05/14/2025 2:25 AM EST us Selin Lee MD LAB BLOOD ORDERABLES Final Re sult [facility] [address] [place] [address] * (ABNORMAL) Basic Metabolic Panel, Plasma (05/14/2025 1:45 AM EDT) Glucose, Plasma 282(H) 74 - 99 mg/dL 05/14/2025 2:58 AM EST [facility] BUN, Plasma 16 7 - 21 mg/dL 05/14/2025 2:58 AM EST [facility] Creatinine, Plasma 0.85 0.70 - 1.20 mg/dL 05/14/2025 2:58 AM EST [facility] BUN/Creatinine Ratio 19 05/14/2025 2:58 AM EST [facility] Sodium, Plasma 132(L) 136 - 145 mmol/L 05/14/2025 2:58 AM EST [facility] Potassium, Plasma 3.5(L) 3.6 - 4.9 mmol/L 05/14/2025 2:58 AM EST [facility] Chloride, Plasma 87(L) 97 - 107 mmol/L 05/14/2025 2:58 AM EST [facility] CO2, Plasma 34(H) 22 - 29 mmol/L 05/14/2025 2:58 AM EST [facility] Anion Gap 11 6 - 16 mmol/L 05/14/2025 2:58 AM EST [facility] Total Calcium, Plasma 9.2 8.9 - 10.2 mg/dL 05/14/2025 2:58 AM EST [facility] eGFRcr 107.9 mL/min/1.7 3m*2 05/14/2025 2:58 AM EST [facility] Comment:Reported eGFRcr in m L/min/1.73m2 is based the CKD-EPI 2020 equation that does not use a race coefficient. Blood Venous blood specimen / Unknown Venipuncture / Unknown 05/14/2025 1:45 AM EDT 05/14/2025 2:25 AM EST Selin Lee MD LAB BLOOD ORDERABLES Final Re sult [facility] [address] [place] [address] * Phosphorus, Plasma (05/14/2025 1:45 AM EDT) Pathologist [facility] Phosphorus, Plasma 3.3 2.5 - 4.5 mg/dL 05/14/2025 2:58 AM EST [facility] Blood Venous blood specimen / Unknown Venipuncture / Unknown 05/14/2025 1:45 AM EDT 05/14/2025 2:25 AM EST us Selin Lee MD LAB BLOOD ORDERABLES Final Re sult Performing Organization Address [facility] Co de Phone Number [facility] [address] [place] [address] * (ABNORMAL) POCT glucose meter (05/13/2025 7:59 PM EDT) [facility] POCT Glucose 257(H) 74 - 99 mg/dL 05/31/2025 3:12 PM EST [facility] Comment:Accuracy of a glucos e result [...] Comment 05/31/2025 3:12 PM EST [facility] Instructional Services Specialist ID Stella Coleman 05/31/20 3:12 PM EST [facility] Device ID [id number] 05/31/2025 3:12 PM EST [facility] Specimen Type POC Capillary 05/31/2025 3:12 PM EST [facility] Blood Capillary blood specimen / Unknown 05/13/2025 7:59 PM EDT 05/31/2025 3:12 PM EST us Wily Goyal DO LAB POINT OF CARE TE ST DOCKED DEVICE UNSOLICITED RESULTS Final Result Performing Organization Address [facility]/ZIP Co de Phone Number [facility] [address] [place] [address] * (ABNORMAL) POCT glucose meter (05/13/2025 4:58 [...] Comment 05/13/2025 5:00 PM EDT [facility] Instructional Services Specialist ID Priyanka Negrete 05/13/20 5:00 PM EDT [facility] Device ID [id number] 05/13/2025 5:00 PM EDT [facility] Specimen Type POC Capillary 05/13/2025 5:00 PM EDT [facility] Blood Capillary blood specimen / Unknown 05/13/2025 4:58 PM EDT 05/13/2025 5:00 PM EDT us Selin Lee MD LAB POINT OF CARE TE ST DOCKED DEVICE UNSOLICITED RESULTS Final Result Performing Organization Address City/State/[facility] Co de Phone Number [facility] [address] [place] [address] * (ABNORMAL) POCT glucose meter (05/13/2025 11:37 [...] 05/13/2025 11:41 AM EDT [facility] Instructional Services Specialist ID Priyanka Negrete 05/13/20 11:41 AM EDT [facility] Device ID [id number] 05/13/2025 11:41 AM EDT [facility] Specimen Type POC Capillary 05/13/2025 11:41 AM EDT [facility] Blood Capillary blood specimen / Unknown 05/13/2025 11:37 AM EDT 05/13/2025 11:41 AM EDT Selin Lee MD LAB POINT OF CARE TE ST DOCKED DEVICE UNSOLICITED RESULTS Final Result Performing Organization Address City/[facility]/ZIP Co de Phone Number [facility] [address] [place] [address] * (ABNORMAL) POCT glucose meter (05/13/2025 7:42 [...] Comment 05/13/2025 7:45 AM EDT [facility] Instructional Services Specialist ID Priyanka Negrete 05/13/20 7:45 AM EDT [facility] Device ID [id number] 05/13/2025 7:45 AM EDT [facility] Specimen Type POC Capillary 05/13/2025 7:45 AM EDT [facility] Blood Capillary blood specimen / Unknown 05/13/2025 7:42 AM EDT 05/13/2025 7:45 AM EDT Selin Lee MD LAB POINT OF CARE TE ST DOCKED DEVICE UNSOLICITED RESULTS Final Result Performing Organization Address City/[facility]/ZIP Co de Phone Number [facility] [address] [place] [address] * (ABNORMAL) CBC and Differential (05/13/2025 3:54 AM EDT) WBC Count 7.92 3.70 - 10.30 10*3/uL LAB HEMATOLOGY METHOD 05/13/2025 4:11 AM EDT [facility] RBC Count 4.40(L) 4.60 - 6.10 10*6/uL LAB HEMATOLOGY METHOD 05/13/2025 4:11 AM EDT [facility] HGB 9.9(L) 13.7 - 17.5 g/dL LAB HEMATOLOGY METHOD 05/13/2025 4:11 AM EDT [facility] HCT 33.0(L) 40.0 - 51.0 % LAB HEMATOLOGY METHOD 05/13/2025 4:11 AM EDT [facility] Platelet Count 276 155 - 369 10*3/uL LAB HEMATOLOGY METHOD 05/13/2025 4:11 AM EDT [facility] MCV 75(L) 79 - 98 fL LAB HEMATOLOGY METHOD 05/13/2025 4:11 AM EDT [facility] MCH 22.5(L) 26.0 - 32.0 pg LAB HEMATOLOGY METHOD 05/13/2025 4:11 AM EDT [facility] MCHC 30.0(L) 30.7 - 35.5 g/dL LAB HEMATOLOGY METHOD 05/13/2025 4:11 AM EDT [facility] RDW 17.8(H) 11.5 - 14.5 % LAB HEMATOLOGY METHOD 05/13/2025 4:11 AM EDT [facility] MPV 9.3 8.8 - 12.5 fL LAB HEMATOLOGY METHOD 05/13/2025 4:11 AM EDT [facility] nRBC 0.0 <=0.0 per 100 WBCs LAB HEMATOLOGY METHOD 05/13/2025 4:11 AM EDT [facility] Differential Type Automated LAB HEMATOLOGY METHOD 05/13/2025 4:11 AM EDT [facility] Neutrophils % 69 % LAB HEMATOLOGY METHOD 05/13/2025 4:11 AM EDT [facility] Lymphocytes % 17 % LAB HEMATOLOGY METHOD 05/13/2025 4:11 AM EDT [facility] Monocytes % 10 % LAB HEMATOLOGY METHOD 05/13/2025 4:11 AM EDT [facility] Eosinophils % 3 % LAB HEMATOLOGY METHOD 05/13/2025 4:11 AM EDT [facility] Basophils % 1 % LAB HEMATOLOGY METHOD 05/13/2025 4:11 AM EDT [facility] Immature Granulocytes % 0 % LAB HEMATOLOGY METHOD 05/13/2025 4:11 AM EDT [facility] Neutrophils Absolute 5.47 1.60 - 6.10 10*3/uL LAB HEMATOLOGY METHOD 05/13/2025 4:11 AM EDT [facility] Lymphocytes Absolute 1.33 1.20 - 3.90 10*3/uL LAB HEMATOLOGY METHOD 05/13/2025 4:11 AM EDT [facility] Monocytes Absolute 0.78 0.30 - 0.90 10*3/uL LAB HEMATOLOGY METHOD 05/13/2025 4:11 AM EDT [facility] Eosinophils Absolute 0.27 0.00 - 0.50 10*3/uL LAB HEMATOLOGY METHOD 05/13/2025 4:11 AM EDT [facility] Basophils Absolute 0.04 0.00 - 0.10 10*3/uL LAB HEMATOLOGY METHOD 05/13/2025 4:11 AM EDT [facility] Immature Granulocytes Absolute 0.03 0.00 - 0.06 10*3/uL LAB HEMATOLOGY METHOD 05/13/2025 4:11 AM EDT [facility] Blood Venous blood specimen / Unknown Venipuncture / Unknown 05/13/2025 3:54 AM EDT 05/13/2025 4:01 AM EDT Narrative [facility] - 05/13/2025 4:11 AM EDT Therapeutic decision making should be based on absolute values, rather than percentages. us Selin Lee MD LAB BLOOD ORDERABLES Final Re sult [facility] [address] [place] [address] * Magnesium, Plasma (05/13/2025 3:54 AM EDT) Magnesium, Plasma 1.9 1.9 - 2.4 mg/dL 05/13/2025 4:28 AM EDT [facility] Blood Venous blood specimen / Unknown Venipuncture / Unknown 05/13/2025 3:54 AM EDT 05/13/2025 4:01 AM EDT us Selin Lee MD LAB BLOOD ORDERABLES Final Re sult [facility] [address] [place] [address] * (ABNORMAL) Basic Metabolic Panel, Plasma (05/13/2025 3:54 AM EDT) Glucose, Plasma 238(H) 74 - 99 mg/dL 05/13/2025 4:28 AM EDT [facility] BUN, Plasma 16 7 - 21 mg/dL 05/13/2025 4:28 AM EDT [facility] Creatinine, Plasma 0.96 0.70 - 1.20 mg/dL 05/13/2025 4:28 AM EDT [facility] BUN/Creatinine Ratio 17 05/13/2025 4:28 AM EDT [facility] Sodium, Plasma 131(L) 136 - 145 mmol/L 05/13/2025 4:28 AM EDT [facility] Potassium, Plasma 3.3(L) 3.6 - 4.9 mmol/L 05/13/2025 4:28 AM EDT [facility] Chloride, Plasma 87(L) 97 - 107 mmol/L 05/13/2025 4:28 AM EDT [facility] CO2, Plasma 37(H) 22 - 29 mmol/L 05/13/2025 4:28 AM EDT [facility] Anion Gap 7 6 - 16 mmol/L 05/13/2025 4:28 AM EDT [facility] Total Calcium, Plasma 9.1 8.9 - 10.2 mg/dL 05/13/2025 4:28 AM EDT [facility] eGFRcr 98.1 mL/min/1.7 3m*2 05/13/2025 4:28 AM EDT [facility] Comment:Reported eGFRcr in m L/min/1.73m2 is based the CKD-EPI 2020 equation that does not use a race coefficient. Blood Venous blood specimen / Unknown Venipuncture / Unknown 05/13/2025 3:54 AM EDT 05/13/2025 4:01 AM EDT us Selin Lee MD LAB BLOOD ORDERABLES Final Re sult Performing Organization Address [facility] Co de Phone Number [facility] [address] [place] [address] * Phosphorus, Plasma (05/13/2025 3:54 AM EDT) [facility] Phosphorus, Plasma 3.3 2.5 - 4.5 mg/dL 05/13/2025 4:28 AM EDT [facility] Blood Venous blood specimen / Unknown Venipuncture / Unknown 05/13/2025 3:54 AM EDT 05/13/2025 4:01 AM EDT Selin Lee MD LAB BLOOD ORDERABLES Final Re sult Performing Organization Address [facility] de Phone Number [facility] [address] [place] [address] * (ABNORMAL) POCT glucose meter (05/12/2025 7:40 PM EDT) [facility] POCT Glucose 248(H) 74 - 99 mg/dL [...] 05/12/2025 7:42 PM EDT [facility] Instructional Services Specialist ID Stella Coleman 05/12/20 7:42 PM EDT [facility] Device ID [id number] 05/12/2025 7:42 PM EDT [facility] Specimen Type POC Capillary 05/12/2025 7:42 PM EDT [facility] Blood Capillary blood specimen / Unknown 05/12/2025 7:40 PM EDT 05/12/2025 7:42 PM EDT us Selin Lee MD LAB POINT OF CARE TE ST DOCKED DEVICE UNSOLICITED RESULTS Final Result Performing Organization Address City/[facility]/ZIP Co de Phone Number [facility] [address] [place] [address] * (ABNORMAL) POCT glucose meter (05/12/2025 4:36 PM EDT) [facility] POCT Glucose 235(H) 74 - 99 mg/dL [...] 05/12/2025 4:38 PM EDT [facility] Instructional Services Specialist ID Char Hinojosa 05/12/2025 4:38 PM EDT [facility] Device ID [id number] 05/12/2025 4:38 PM EDT [facility] Specimen Type POC Capillary 05/12/2025 4:38 PM EDT [facility] Blood Capillary blood specimen / Unknown 05/12/2025 4:36 PM EDT 05/12/2025 4:38 PM EDT Selin Lee MD LAB POINT OF CARE TE ST DOCKED DEVICE UNSOLICITED RESULTS Final Result [facility] [address] [place] [address] * (ABNORMAL) POCT glucose meter (05/12/2025 11:30 AM EDT) [facility] POCT Glucose 315(H) 74 - 99 mg/dL [...] 05/12/2025 11:32 AM EDT [facility] Instructional Services Specialist ID Char Hinojosa 05/12/2025 11:32 AM EDT [facility] Device ID [id number] 05/12/2025 11:32 AM EDT [facility] Specimen Type POC Capillary 05/12/2025 11:32 AM EDT [facility] Blood Capillary blood specimen / Unknown 05/12/2025 11:30 AM EDT 05/12/2025 11:32 AM EDT us Selin Lee MD LAB POINT OF CARE TE ST DOCKED DEVICE UNSOLICITED RESULTS Final Result Performing Organization Address City/[facility]/ZIP Co de Phone Number [facility] [address] [place] [address] * (ABNORMAL) POCT glucose meter (05/12/2025 8:08 [...] Comment 05/12/2025 8:10 AM EDT [facility] Instructional Services Specialist ID Char Hinojosa 05/12/2025 8:10 AM EDT [facility] Device ID [id number] 05/12/2025 8:10 AM EDT [facility] Specimen Type POC Capillary 05/12/2025 8:10 AM EDT [facility] Blood Capillary blood specimen / Unknown 05/12/2025 8:08 AM EDT 05/12/2025 8:10 AM EDT us Selin Lee MD LAB POINT OF CARE TE ST DOCKED DEVICE UNSOLICITED RESULTS Final Result [facility] [address] [place] [address] * (ABNORMAL) CBC and Differential (05/12/2025 3:56 AM EDT) Pathologist [facility] WBC Count 7.24 3.70 - 10.30 10*3/uL LAB HEMATOLOGY METHOD 05/12/2025 4:15 AM EDT [facility] RBC Count 4.28(L) 4.60 - 6.10 10*6/uL LAB HEMATOLOGY METHOD 05/12/2025 4:15 AM EDT [facility] HGB 9.4(L) 13.7 - 17.5 g/dL LAB HEMATOLOGY METHOD 05/12/2025 4:15 AM EDT [facility] HCT 31.8(L) 40.0 - 51.0 % LAB HEMATOLOGY METHOD 05/12/2025 4:15 AM EDT [facility] Platelet Count 266 155 - 369 10*3/uL LAB HEMATOLOGY METHOD 05/12/2025 4:15 AM EDT [facility] MCV 74(L) 79 - 98 fL LAB HEMATOLOGY METHOD 05/12/2025 4:15 AM EDT [facility] MCH 22.0(L) 26.0 - 32.0 pg LAB HEMATOLOGY METHOD 05/12/2025 4:15 AM EDT [facility] MCHC 29.6(L) 30.7 - 35.5 g/dL LAB HEMATOLOGY METHOD 05/12/2025 4:15 AM EDT [facility] RDW 18.0(H) 11.5 - 14.5 % LAB HEMATOLOGY METHOD 05/12/2025 4:15 AM EDT [facility] MPV 9.6 8.8 - 12.5 fL LAB HEMATOLOGY METHOD 05/12/2025 4:15 AM EDT [facility] nRBC 0.0 <=0.0 per 100 WBCs LAB HEMATOLOGY METHOD 05/12/2025 4:15 AM EDT [facility] Differential Type Automated LAB HEMATOLOGY METHOD 05/12/2025 4:15 AM EDT [facility] Neutrophils % 71 % LAB HEMATOLOGY METHOD 05/12/2025 4:15 AM EDT [facility] Lymphocytes % 16 % LAB HEMATOLOGY METHOD 05/12/2025 4:15 AM EDT [facility] Monocytes % 9 % LAB HEMATOLOGY METHOD 05/12/2025 4:15 AM EDT [facility] Eosinophils % 3 % LAB HEMATOLOGY METHOD 05/12/2025 4:15 AM EDT [facility] Basophils % 1 % LAB HEMATOLOGY METHOD 05/12/2025 4:15 AM EDT [facility] Immature Granulocytes % 0 % LAB HEMATOLOGY METHOD 05/12/2025 4:15 AM EDT [facility] Neutrophils Absolute 5.14 1.60 - 6.10 10*3/uL LAB HEMATOLOGY METHOD 05/12/2025 4:15 AM EDT [facility] Lymphocytes Absolute 1.15(L) 1.20 - 3.90 10*3/uL LAB HEMATOLOGY METHOD 05/12/2025 4:15 AM EDT [facility] Monocytes Absolute 0.66 0.30 - 0.90 10*3/uL LAB HEMATOLOGY METHOD 05/12/2025 4:15 AM EDT [facility] Eosinophils Absolute 0.22 0.00 - 0.50 10*3/uL LAB HEMATOLOGY METHOD 05/12/2025 4:15 AM EDT [facility] Basophils Absolute 0.05 0.00 - 0.10 10*3/uL LAB HEMATOLOGY METHOD 05/12/2025 4:15 AM EDT [facility] Immature Granulocytes Absolute 0.02 0.00 - 0.06 10*3/uL LAB HEMATOLOGY METHOD 05/12/2025 4:15 AM EDT [facility] Blood Venous blood specimen / Unknown Venipuncture / Unknown 05/12/2025 3:56 AM EDT 05/12/2025 4:03 AM EDT Narrative [facility] - 05/12/2025 4:15 AM EDT Therapeutic decision making should be based on absolute values, rather than percentages. us Selin Lee MD LAB BLOOD ORDERABLES Final Re sult [facility] [address] [place] [address] * (ABNORMAL) Magnesium, Plasma (05/12/2025 3:56 AM EDT) Magnesium, Plasma 1.7(L) 1.9 - 2.4 mg/dL 05/12/2025 4:36 AM EDT [facility] Blood Venous blood specimen / Unknown Venipuncture / Unknown 05/12/2025 3:56 AM EDT 05/12/2025 4:03 AM EDT us Selin Lee MD LAB BLOOD ORDERABLES Final Re sult [facility] [address] [place] [address] * (ABNORMAL) Basic Metabolic Panel, Plasma (05/12/2025 3:56 AM EDT) Glucose, Plasma 383(H) 74 - 99 mg/dL 05/12/2025 4:36 AM EDT [facility] BUN, Plasma 18 7 - 21 mg/dL 05/12/2025 4:36 AM EDT [facility] Creatinine, Plasma 0.86 0.70 - 1.20 mg/dL 05/12/2025 4:36 AM EDT [facility] BUN/Creatinine Ratio 21 05/12/2025 4:36 AM EDT [facility] Sodium, Plasma 130(L) 136 - 145 mmol/L 05/12/2025 4:36 AM EDT [facility] Potassium, Plasma 3.2(L) 3.6 - 4.9 mmol/L 05/12/2025 4:36 AM EDT [facility] Chloride, Plasma 85(L) 97 - 107 mmol/L 05/12/2025 4:36 AM EDT [facility] CO2, Plasma 36(H) 22 - 29 mmol/L 05/12/2025 4:36 AM EDT [facility] Anion Gap 9 6 - 16 mmol/L 05/12/2025 4:36 AM EDT [facility] Total Calcium, Plasma 8.9 8.9 - 10.2 mg/dL 05/12/2025 4:36 AM EDT [facility] eGFRcr 107.5 mL/min/1.7 3m*2 05/12/2025 4:36 AM EDT [facility] Comment:Reported eGFRcr in m L/min/1.73m2 is based the CKD-EPI 2020 equation that does not use a race coefficient. Blood Venous blood specimen / Unknown Venipuncture / Unknown 05/12/2025 3:56 AM EDT 05/12/2025 4:03 AM EDT us Selin Lee MD LAB BLOOD ORDERABLES Final Re sult Performing Organization Address City/[facility]/ZIP Co de Phone Number [facility] [address] [place] [address] * Phosphorus, Plasma (05/12/2025 3:56 AM EDT) [facility] Phosphorus, Plasma 2.8 2.5 - 4.5 mg/dL 05/12/2025 4:36 AM EDT [facility] Blood Venous blood specimen / Unknown Venipuncture / Unknown 05/12/2025 3:56 AM EDT 05/12/2025 4:03 AM EDT us Selin Lee MD LAB BLOOD ORDERABLES Final Re sult Performing Organization Address [facility]/[place] [facility] [place] [address] * (ABNORMAL) POCT glucose meter (05/12/2025 3:11 [...] 05/12/2025 3:13 AM EDT [facility] Instructional Services Specialist ID Mathew Edshuterikigus 05/12/2025 3:13 AM EDT [facility] Device ID [id number] 05/12/2025 3:13 AM EDT [facility] Specimen Type POC Capillary 05/12/2025 3:13 AM EDT [facility] Blood Capillary blood specimen / Unknown 05/12/2025 3:11 AM EDT 05/12/2025 3:13 AM EDT us Selin Lee MD LAB POINT OF CARE TE ST DOCKED DEVICE UNSOLICITED RESULTS Final Result Performing Organization Address City/[facility] Co de Phone Number HEALTHCARE [facility] [address] [place] [address] * (ABNORMAL) POCT glucose meter (05/11/2025 7:57 [...] Comment 05/11/2025 8:02 PM EDT [facility] Instructional Services Specialist ID Mathew Edshuterikia 05/11/2025 8:02 PM EDT [facility] Device ID [id number] 05/11/2025 8:02 PM EDT [facility] Specimen Type POC Capillary 05/11/2025 8:02 PM EDT [facility] Blood Capillary blood specimen / Unknown 05/11/2025 7:57 PM EDT 05/11/2025 8:02 PM EDT us Selin Lee MD LAB POINT OF CARE TE ST DOCKED DEVICE UNSOLICITED RESULTS Final Result Performing Organization Address [facility] Co de Phone Number [facility] [address] [place] [address] * (ABNORMAL) POCT glucose meter (05/11/2025 5:05 [...] Comment 05/11/2025 5:07 PM EDT [facility] Instructional Services Specialist ID Char Hinojosa 05/11/2025 5:07 PM EDT [facility] Device ID [id number] 05/11/2025 5:07 PM EDT [facility] Specimen Type POC Capillary 05/11/2025 5:07 PM EDT [facility] Blood Capillary blood specimen / Unknown 05/11/2025 5:05 PM EDT 05/11/2025 5:07 PM EDT Selin Lee MD LAB POINT OF CARE TE ST DOCKED DEVICE UNSOLICITED RESULTS Final Result Performing Organization Address City/[facility] Co de Phone Number [facility]ARE [facility] [address] [place] [address] * (ABNORMAL) POCT glucose meter (05/11/2025 12:13 [...] Comment 05/11/2025 12:15 PM EDT [facility] Instructional Services Specialist ID Char Hinojosa 05/11/2025 12:15 PM EDT [facility] Device ID [id number] 05/11/2025 12:15 PM EDT [facility] Specimen Type POC Capillary 05/11/2025 12:15 PM EDT [facility] Blood Capillary blood specimen / Unknown 05/11/2025 12:13 PM EDT 05/11/2025 12:15 PM EDT us Selin Lee MD LAB POINT OF CARE TE ST DOCKED DEVICE UNSOLICITED RESULTS Final Result Performing Organization Address City/[facility]/ZIP Co de Phone Number [facility]ARE [facility] [address] [place] [address] * (ABNORMAL) POCT glucose meter (05/11/2025 7:57 [...] Comment 05/11/2025 7:59 AM EDT [facility] Instructional Services Specialist ID Char Hinojosa 05/11/2025 7:59 AM EDT [facility] Device ID [id number] 05/11/2025 7:59 AM EDT [facility] Specimen Type POC Capillary 05/11/2025 7:59 AM EDT [facility] Blood Capillary blood specimen / Unknown 05/11/2025 7:57 AM EDT 05/11/2025 7:59 AM EDT us Selin Lee MD LAB POINT OF CARE TE ST DOCKED DEVICE UNSOLICITED RESULTS Final Result Performing Organization Address City/State/[facility] Co de Phone Number [facility] [address] [place] [address] * ECG Adult (05/11/2025 6:11 AM EDT) Pathologist [facility] EKG DIAGNOSIS CLASS Abnormal MUSE ECG Ventricular Rate 59 BPM MUSE ECG Atrial Rate 59 BPM MUSE ECG OK Interval 176 ms MUSE ECG QRSD Interval 160 ms MUSE ECG QT Interval 520 ms MUSE ECG QTC Interval 514 ms MUSE ECG P Pollock 21 degrees MUSE ECG R Pollock -32 degrees MUSE ECG T Wave Pollock -9 degrees MUSE ECG Diagnosis Sinus bradycardia [...] MUSE ECG Diagnosis Confirmed by Tone Lainez ([id number]) on 05/12/2025 11:35:23 AM MUSE ECG 05/11/2025 6:11 AM EDT 05/12/2025 11:35 AM EDT us Selin Lee MD ECG ORDERABLES Final Result Performing Organization Address [facility] Co de Phone Number MUSE ECG * [...] Comment 05/11/2025 3:45 AM EDT [facility] Instructional Services Specialist ID Kaylin Barron 05/11/2025 3:45 AM EDT [facility] Device ID [id number] 05/11/2025 3:45 AM EDT [facility] Specimen Type POC Capillary 05/11/2025 3:45 AM EDT [facility] Blood Capillary blood specimen / Unknown 05/11/2025 3:42 AM EDT 05/11/2025 3:45 AM EDT us Selin Lee MD LAB POINT OF CARE TE ST DOCKED DEVICE UNSOLICITED RESULTS Final Result Performing Organization Address [facility] Co de Phone Number [facility] [address] [place] [address] * (ABNORMAL) CBC and Differential (05/11/2025 3:24 AM EDT) Pathologist [facility] WBC Count 6.72 3.70 - 10.30 10*3/uL LAB HEMATOLOGY METHOD 05/11/2025 3:42 AM EDT [facility] RBC Count 4.13(L) 4.60 - 6.10 10*6/uL LAB HEMATOLOGY METHOD 05/11/2025 3:42 AM EDT [facility] HGB 9.5(L) 13.7 - 17.5 g/dL LAB HEMATOLOGY METHOD 05/11/2025 3:42 AM EDT [facility] HCT 31.1(L) 40.0 - 51.0 % LAB HEMATOLOGY METHOD 05/11/2025 3:42 AM EDT [facility] Platelet Count 253 155 - 369 10*3/uL LAB HEMATOLOGY METHOD 05/11/2025 3:42 AM EDT [facility] MCV 75(L) 79 - 98 fL LAB HEMATOLOGY METHOD 05/11/2025 3:42 AM EDT [facility] MCH 23.0(L) 26.0 - 32.0 pg LAB HEMATOLOGY METHOD 05/11/2025 3:42 AM EDT [facility] MCHC 30.5(L) 30.7 - 35.5 g/dL LAB HEMATOLOGY METHOD 05/11/2025 3:42 AM EDT [facility] RDW 17.8(H) 11.5 - 14.5 % LAB HEMATOLOGY METHOD 05/11/2025 3:42 AM EDT [facility] MPV 9.5 8.8 - 12.5 fL LAB HEMATOLOGY METHOD 05/11/2025 3:42 AM EDT [facility] nRBC 0.0 <=0.0 per 100 WBCs LAB HEMATOLOGY METHOD 05/11/2025 3:42 AM EDT [facility] Differential Type Automated LAB HEMATOLOGY METHOD 05/11/2025 3:42 AM EDT [facility] Neutrophils % 68 % LAB HEMATOLOGY METHOD 05/11/2025 3:42 AM EDT [facility] Lymphocytes % 17 % LAB HEMATOLOGY METHOD 05/11/2025 3:42 AM EDT [facility] Monocytes % 11 % LAB HEMATOLOGY METHOD 05/11/2025 3:42 AM EDT [facility] Eosinophils % 3 % LAB HEMATOLOGY METHOD 05/11/2025 3:42 AM EDT [facility] Basophils % 1 % LAB HEMATOLOGY METHOD 05/11/2025 3:42 AM EDT [facility] Immature Granulocytes % 0 % LAB HEMATOLOGY METHOD 05/11/2025 3:42 AM EDT [facility] Neutrophils Absolute 4.61 1.60 - 6.10 10*3/uL LAB HEMATOLOGY METHOD 05/11/2025 3:42 AM EDT [facility] Lymphocytes Absolute 1.11(L) 1.20 - 3.90 10*3/uL LAB HEMATOLOGY METHOD 05/11/2025 3:42 AM EDT [facility] Monocytes Absolute 0.72 0.30 - 0.90 10*3/uL LAB HEMATOLOGY METHOD 05/11/2025 3:42 AM EDT [facility] Eosinophils Absolute 0.21 0.00 - 0.50 10*3/uL LAB HEMATOLOGY METHOD 05/11/2025 3:42 AM EDT [facility] Basophils Absolute 0.05 0.00 - 0.10 10*3/uL LAB HEMATOLOGY METHOD 05/11/2025 3:42 AM EDT [facility] Immature Granulocytes Absolute 0.02 0.00 - 0.06 10*3/uL LAB HEMATOLOGY METHOD 05/11/2025 3:42 AM EDT [facility] Blood Venous blood specimen / Unknown Venipuncture / Unknown 05/11/2025 3:24 AM EDT 05/11/2025 3:30 AM EDT Narrative [facility] - 05/11/2025 3:42 AM EDT Therapeutic decision making should be based on absolute values, rather than percentages. us Selin Lee MD LAB BLOOD ORDERABLES Final Re sult Performing Organization Address [facility] Co de Phone Number [facility] [address] [place] [address] * (ABNORMAL) Magnesium, Plasma (05/11/2025 3:24 AM EDT) Magnesium, Plasma 1.8(L) 1.9 - 2.4 mg/dL 05/11/2025 3:58 AM EDT [facility] Blood Venous blood specimen / Unknown Venipuncture / Unknown 05/11/2025 3:24 AM EDT 05/11/2025 3:30 AM EDT us Selin Lee MD LAB BLOOD ORDERABLES Final Re sult Performing Organization Address City/[facility]/ZIP Co de Phone Number [facility] [address] [place] [address] * (ABNORMAL) Basic Metabolic Panel, Plasma (05/11/2025 3:24 AM EDT) Glucose, Plasma 338(H) 74 - 99 mg/dL 05/11/2025 3:58 AM EDT [facility] BUN, Plasma 18 7 - 21 mg/dL 05/11/2025 3:58 AM EDT [facility] Creatinine, Plasma 0.86 0.70 - 1.20 mg/dL 05/11/2025 3:58 AM EDT [facility] BUN/Creatinine Ratio 21 05/11/2025 3:58 AM EDT [facility] Sodium, Plasma 131(L) 136 - 145 mmol/L 05/11/2025 3:58 AM EDT [facility] Potassium, Plasma 3.2(L) 3.6 - 4.9 mmol/L 05/11/2025 3:58 AM EDT [facility] Chloride, Plasma 85(L) 97 - 107 mmol/L 05/11/2025 3:58 AM EDT [facility] CO2, Plasma 39(H) 22 - 29 mmol/L 05/11/2025 3:58 AM EDT [facility] Anion Gap 7 6 - 16 mmol/L 05/11/2025 3:58 AM EDT [facility] Total Calcium, Plasma 9.1 8.9 - 10.2 mg/dL 05/11/2025 3:58 AM EDT [facility] eGFRcr 107.5 mL/min/1.7 3m*2 05/11/2025 3:58 AM EDT [facility] Comment:Reported eGFRcr in m L/min/1.73m2 is based the CKD-EPI 2020 equation that does not use a race coefficient. Blood Venous blood specimen / Unknown Venipuncture / Unknown 05/11/2025 3:24 AM EDT 05/11/2025 3:30 AM EDT us Selin Lee MD LAB BLOOD ORDERABLES Final Re sult [facility] [address] [place] [address] * Phosphorus, Plasma (05/11/2025 3:24 AM EDT) [facility] Phosphorus, Plasma 3.1 2.5 - 4.5 mg/dL 05/11/2025 3:58 AM EDT [facility] Blood Venous blood specimen / Unknown Venipuncture / Unknown 05/11/2025 3:24 AM EDT 05/11/2025 3:30 AM EDT us Selin Lee MD LAB BLOOD ORDERABLES Final Re sult Performing Organization Address City/[facility]/ZIP Co de Phone Number [facility] [address] [place] [address] * (ABNORMAL) POCT glucose meter (05/10/2025 7:07 PM EDT) [facility] Glucose 398(H) 74 - 99 mg/dL 05/10/2025 [...] 05/10/2025 7:10 PM EDT [facility] Instructional Services Specialist ID Char Hinojosa 05/10/2025 7:10 PM EDT [facility] LAB Device ID [id number] 05/10/2025 7:10 PM EDT [facility] Specimen Type POC Capillary 05/10/2025 7:10 PM EDT [facility] Blood Capillary blood specimen / Unknown 05/10/2025 7:07 PM EDT 05/10/2025 7:10 PM EDT us Selin Lee MD LAB POINT OF CARE TE ST DOCKED DEVICE UNSOLICITED RESULTS Final Result Performing Organization Address City/[facility]/ZIP Co de Phone Number [facility] [address] [place] [address] * (ABNORMAL) POCT glucose meter (05/10/2025 4:55 PM EDT) [facility] POCT Glucose 418(H) 74 - 99 mg/dL [...] Comment 05/10/2025 4:57 PM EDT [facility] Instructional Services Specialist ID Char Hinojosa 05/10/2025 4:57 PM EDT [facility] Device ID [id number] 05/10/2025 4:57 PM EDT [facility] Specimen Type POC Capillary 05/10/2025 4:57 PM EDT [facility] Blood Capillary blood specimen / Unknown 05/10/2025 4:55 PM EDT 05/10/2025 4:57 PM EDT Selin Lee MD LAB POINT OF CARE TE ST DOCKED DEVICE UNSOLICITED RESULTS Final Result Performing Organization Address City/State/[facility] Co de Phone Number [facility]ARE [facility] [address] [place] [address] * (ABNORMAL) POCT glucose meter (05/10/2025 11:41 AM EDT) [facility] [...] Comment 05/10/2025 11:43 AM EDT [facility] Instructional Services Specialist ID Char Hinojosa 05/10/2025 11:43 AM EDT [facility] Device ID [id number] 05/10/2025 11:43 AM EDT [facility] Specimen Type POC Capillary 05/10/2025 11:43 AM EDT [facility] Blood Capillary blood specimen / Unknown 05/10/2025 11:41 AM EDT 05/10/2025 11:43 AM EDT us Selin Lee MD LAB POINT OF CARE TE ST DOCKED DEVICE UNSOLICITED RESULTS Final Result Performing Organization Address City/[facility]/ZIP Co de Phone Number [facility]ARE [facility] [address] [place] [address] * ECG 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/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 [facility] EKG DIAGNOSIS CLASS Abnormal MUSE ECG Ventricular Rate 65 BPM MUSE ECG Atrial Rate 65 BPM MUSE ECG OK Interval 198 ms MUSE ECG QRSD Interval 154 ms MUSE ECG QT Interval 508 ms MUSE ECG QTC Interval 528 ms MUSE ECG P Pollock 66 degrees MUSE ECG R Pollock -39 degrees MUSE ECG T Wave Pollock -16 degrees MUSE ECG Diagnosis Normal sinus rhythm with sinus arrhythmia MUSE ECG Diagnosis Left axis deviation MUSE ECG Diagnosis Right bundle branch block MUSE ECG Diagnosis Minimal voltage criteria for LVH, may be normal variant ( R in aVL ) MUSE ECG Diagnosis Abnormal ECG MUSE ECG Diagnosis MUSE ECG Diagnosis Confirmed by Manas Mccauley ([id number]) on 05/10/2025 3:20:48 PM MUSE ECG 05/10/2025 11:2 0 AM EDT 05/10/2025 3:20 PM EDT us Selin Lee MD ECG ORDERABLES Final Result Performing Organization Address [facility] Co de Phone Number MUSE ECG * (ABNORMAL) POCT glucose meter (05/10/2025 7:30 AM EDT) [facility] POCT Glucose 332(H) 74 - 99 mg/dL 05/10/2025 7:33 AM EDT [facility] Comment:Accuracy of a glucos e result [...] Comment 05/10/2025 7:33 AM EDT [facility] Instructional Services Specialist ID Char Hinojosa 05/10/2025 7:33 AM EDT [facility]ARE [facility] Device ID [id number] 05/10/2025 7:33 AM EDT [facility] Specimen Type POC Capillary 05/10/2025 7:33 AM EDT [facility] Blood Capillary blood specimen / Unknown 05/10/2025 7:30 AM EDT 05/10/2025 7:33 AM EDT us Selin Lee MD LAB POINT OF CARE TE ST DOCKED DEVICE UNSOLICITED RESULTS Final Result [facility] [address] [place] [address] * ECG 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/2025 6:14 AM EDT) EKG DIAGNOSIS CLASS Abnormal MUSE ECG Ventricular Rate 56 BPM MUSE ECG Atrial Rate 56 BPM MUSE ECG OK Interval 196 ms MUSE ECG QRSD Interval 164 ms MUSE ECG QT Interval 508 ms MUSE ECG QTC Interval 490 ms MUSE ECG P Pollock 74 degrees MUSE ECG R Pollock -33 degrees MUSE ECG T Wave Pollock -10 degrees MUSE ECG Diagnosis Sinus bradycardia with sinus arrhythmia MUSE ECG Diagnosis Left axis deviation MUSE ECG Diagnosis Right bundle branch block MUSE ECG Diagnosis T wave abnormality, consider lateral ischemia MUSE ECG Diagnosis Abnormal ECG MUSE ECG Diagnosis MUSE ECG Diagnosis Confirmed by Manas Mccauley ([id number]) on 05/10/2025 2:45:37 PM MUSE ECG 05/10/2025 [...] Comment 05/10/2025 4:02 AM EDT [facility] Instructional Services Specialist ID Maribell Saeed 4:02 AM EDT [facility]ARE [facility] Device ID [id number] 05/10/2025 4:02 AM EDT [facility] Specimen Type POC Capillary 05/10/2025 4:02 AM EDT [facility] Blood Capillary blood specimen / Unknown 05/10/2025 4:00 AM EDT 05/10/2025 4:02 AM EDT Diane Guzman MD LAB POINT OF CARE T EST DOCKED DEVICE UNSOLICITED RESULTS Final Result [facility] [address] [place] [address] * (ABNORMAL) POCT glucose meter (05/09/2025 8:37 PM EDT) [facility] POCT Glucose 296(H) 74 - 99 mg/dL [...] Comment 05/09/2025 8:39 PM EDT [facility] Instructional Services Specialist ID Maribell Saeed 8:39 PM EDT [facility] Device ID [id number] 05/09/2025 8:39 PM EDT [facility] Specimen Type POC Capillary 05/09/2025 8:39 PM EDT [facility] Blood Capillary blood specimen / Unknown 05/09/2025 8:37 PM EDT 05/09/2025 8:39 PM EDT Diane Guzman MD LAB POINT OF CARE T EST DOCKED DEVICE UNSOLICITED RESULTS Final Result [facility] [address] [place] [address] * Magnesium (05/09/2025 5:54 PM EDT) Magnesium, Plasma 1.9 1.9 - 2.4 mg/dL 05/09/2025 6:56 PM EDT [facility] Blood Venous blood specimen / Unknown Venipuncture / Unknown 05/09/2025 5:54 PM EDT 05/09/2025 6:25 PM EDT us Selin Lee MD LAB BLOOD ORDERABLES Final Re sult Performing Organization Address [facility]/ZIP Co de Phone Number [facility] [address] [place] [address] * (ABNORMAL) Basic metabolic panel (05/09/2025 5:54 PM EDT) Glucose, Plasma 416(H) 74 - 99 mg/dL 05/09/2025 6:56 PM EDT [facility] BUN, Plasma 17 7 - 21 mg/dL 05/09/2025 6:56 PM EDT [facility] Creatinine, Plasma 0.81 0.70 - 1.20 mg/dL 05/09/2025 6:56 PM EDT [facility] BUN/Creatinine Ratio 21 05/09/2025 6:56 PM EDT [facility] Sodium, Plasma 130(L) 136 - 145 mmol/L 05/09/2025 6:56 PM EDT [facility] Potassium, Plasma 3.1(L) 3.6 - 4.9 mmol/L 05/09/2025 6:56 PM EDT [facility] Chloride, Plasma 84(L) 97 - 107 mmol/L 05/09/2025 6:56 PM EDT [facility] CO2, Plasma 35(H) 22 - 29 mmol/L 05/09/2025 6:56 PM EDT [facility] Anion Gap 11 6 - 16 mmol/L 05/09/2025 6:56 PM EDT [facility] Total Calcium, Plasma 9.1 8.9 - 10.2 mg/dL 05/09/2025 6:56 PM EDT [facility] eGFRcr 109.4 mL/min/1.7 3m*2 05/09/2025 6:56 PM EDT [facility] Comment:Reported eGFRcr in m L/min/1.73m2 is based the CKD-EPI 2020 equation that does not use a race coefficient. Blood Venous blood specimen / Unknown Venipuncture / Unknown 05/09/2025 5:54 PM EDT 05/09/2025 6:25 PM EDT us Selin Lee MD LAB BLOOD ORDERABLES Final Re sult Performing Organization Address [facility] Co de Phone Number [facility] [address] [place] [address] * (ABNORMAL) POCT glucose meter (05/09/2025 5:17 [...] 05/09/2025 5:20 PM EDT [facility] Instructional Services Specialist ID Char Hinojosa 05/09/2025 5:20 PM EDT HEALTHCARE LAB Device ID [id number] 05/09/2025 5:20 PM EDT [facility]ARE [facility] Specimen Type POC Capillary 05/09/2025 5:20 PM EDT [facility] Blood Capillary blood specimen / Unknown 05/09/2025 5:17 PM EDT 05/09/2025 5:20 PM EDT us Diane Guzman MD LAB POINT OF CARE T EST DOCKED DEVICE UNSOLICITED RESULTS Final Result Performing Organization Address City/[facility]/ZIP Co de Phone Number [facility] [address] [place] [address] * ECG Adult (05/09/2025 12:34 PM EDT) EKG DIAGNOSIS CLASS Abnormal MUSE ECG Ventricular Rate 75 BPM MUSE ECG Atrial Rate 75 BPM MUSE ECG OK Interval 176 ms MUSE ECG QRSD Interval 164 ms MUSE ECG QT Interval 454 ms MUSE ECG QTC Interval 506 ms MUSE ECG P Pollock 70 degrees MUSE ECG R Pollock -38 degrees MUSE ECG T Wave Pollock 2 degrees MUSE ECG Diagnosis Normal sinus rhythm MUSE ECG Diagnosis Left axis deviation MUSE ECG Diagnosis Right bundle branch block MUSE ECG Diagnosis Minimal voltage criteria for LVH, may be normal variant ( R in aVL ) MUSE ECG Diagnosis T wave abnormality, consider lateral ischemia MUSE ECG Diagnosis Abnormal ECG MUSE ECG Diagnosis MUSE ECG Diagnosis Confirmed by Garrett Robles ([id number]) on 05/09/2025 2:20:08 PM MUSE ECG 05/09/2025 [...] 05/09/2025 12:27 PM EDT [facility] Instructional Services Specialist ID Dunia Montgomery 05/09/2025 12:27 PM EDT HEALTH[facility]ARE LAB Device ID [id number] 05/09/2025 12:27 PM EDT [facility] Specimen Type POC Capillary 05/09/2025 12:27 PM EDT [facility] Blood Capillary blood specimen / Unknown 05/09/2025 12:25 PM EDT 05/09/2025 12:27 PM EDT Diane Guzman MD LAB POINT OF CARE T EST DOCKED DEVICE UNSOLICITED RESULTS Final Result Performing Organization Address [facility] de Phone Number [facility]ARE [facility] [address] [place] [address] * (ABNORMAL) POCT glucose meter (05/09/2025 7:52 [...] Comment 05/09/2025 7:54 AM EDT [facility]ALTH[facility]ARE [facility] Instructional Services Specialist ID Char Hinojosa 05/09/2025 7:54 AM EDT [facility] Device ID [id number] 05/09/2025 7:54 AM EDT [facility] Specimen Type POC Capillary 05/09/2025 7:54 AM EDT [facility] Blood Capillary blood specimen / Unknown 05/09/2025 7:52 AM EDT 05/09/2025 7:54 AM EDT Diane Guzman MD LAB POINT OF CARE T EST DOCKED DEVICE UNSOLICITED RESULTS Final Result Performing Organization Address City/[facility] Co de Phone Number [facility] [address] [place] [address] * (ABNORMAL) POCT glucose meter (05/08/2025 11:54 [...] 05/08/2025 11:56 PM EDT [facility] Instructional Services Specialist ID Kaylin Barron 05/08/2025 11:56 PM EDT [facility] Device ID [id number] 05/08/2025 11:56 PM EDT [facility] Specimen Type POC Capillary 05/08/2025 11:56 PM EDT [facility] Blood Capillary blood specimen / Unknown 05/08/2025 11:54 PM EDT 05/08/2025 11:56 PM EDT us Diane Guzman MD LAB POINT OF CARE T EST DOCKED DEVICE UNSOLICITED RESULTS Final Result Performing Organization Address City/[facility] Co de Phone Number [facility]ARE [facility] [address] [place] [address] * (ABNORMAL) POCT glucose meter (05/08/2025 7:33 PM EDT) [facility] [...] Comment 05/08/2025 7:35 PM EDT [facility]ARE [facility] Instructional Services Specialist ID Kaylin Barron 05/08/2025 7:35 PM EDT [facility] Device ID [id number] 05/08/2025 7:35 PM EDT [facility] Specimen Type POC Capillary 05/08/2025 7:35 PM EDT [facility] Blood Capillary blood specimen / Unknown 05/08/2025 7:33 PM EDT 05/08/2025 7:35 PM EDT us Diane Guzman MD LAB POINT OF CARE T EST DOCKED DEVICE UNSOLICITED RESULTS Final Result [facility] [address] [place] [address] * (ABNORMAL) POCT glucose meter (05/08/2025 5:00 PM EDT) [facility] POCT Glucose 347(H) 74 - 99 mg/dL [...] 05/08/2025 5:02 PM EDT [facility] Instructional Services Specialist ID Char Hinojosa 05/08/2025 5:02 PM EDT [facility] Device ID [id number] 05/08/2025 5:02 PM EDT [facility] Specimen Type POC Capillary 05/08/2025 5:02 PM EDT [facility] Blood Capillary blood specimen / Unknown 05/08/2025 5:00 PM EDT 05/08/2025 5:02 PM EDT Diane Guzman MD LAB POINT OF CARE T EST DOCKED DEVICE UNSOLICITED RESULTS Final Result [facility] [address] [place] [address] * (ABNORMAL) POCT glucose meter (05/08/2025 11:42 AM EDT) [facility] POCT Glucose 298(H) 74 - 99 mg/dL [...] 05/08/2025 11:44 AM EDT [facility] Instructional Services Specialist ID Char Hinojosa 05/08/2025 11:44 AM EDT [facility] Device ID [id number] 05/08/2025 11:44 AM EDT [facility]ARE [facility] Specimen Type POC Capillary 05/08/2025 11:44 AM EDT [facility] Blood Capillary blood specimen / Unknown 05/08/2025 11:42 AM EDT 05/08/2025 11:44 AM EDT Diane Guzman MD LAB POINT OF CARE T EST DOCKED DEVICE UNSOLICITED RESULTS Final Result Performing Organization Address City/[facility] Co de Phone Number HEALTHCARE [facility] [address] [place] [address] * (ABNORMAL) POCT glucose meter (05/08/2025 8:05 [...] Comment 05/08/2025 8:07 AM EDT [facility]ALTHCARE LAB Instructional Services Specialist ID Char Hinojosa 05/08/2025 8:07 AM EDT [facility]ARE [facility] Device ID [id number] 05/08/2025 8:07 AM EDT [facility]ALTH[facility]ARE [facility] Specimen Type POC Capillary 05/08/2025 8:07 AM EDT [facility] Blood Capillary blood specimen / Unknown 05/08/2025 8:05 AM EDT 05/08/2025 8:07 AM EDT us Diane Guzman MD LAB POINT OF CARE T EST DOCKED DEVICE UNSOLICITED RESULTS Final Result Performing Organization Address City/[facility] Co de Phone Number HEALTHCARE [facility] [address] [place] [address] * (ABNORMAL) POCT glucose meter (05/08/2025 3:56 [...] 05/08/2025 3:58 AM EDT [facility] Instructional Services Specialist ID Stella Coleman 05/08/20 3:58 AM EDT [facility] Device ID [id number] 05/08/2025 3:58 AM EDT [facility]ARE [facility] Specimen Type POC Capillary 05/08/2025 3:58 AM EDT [facility] Blood Capillary blood specimen / Unknown 05/08/2025 3:56 AM EDT 05/08/2025 3:58 AM EDT Diane Guzman MD LAB POINT OF CARE T EST DOCKED DEVICE UNSOLICITED RESULTS Final Result Performing Organization Address City/State/[facility] Co de Phone Number [facility] [address] [place] [address] * (ABNORMAL) POCT glucose meter (05/07/2025 8:14 PM EDT) [facility] POCT Glucose 392(H) 74 - 99 mg/dL [...] 05/07/2025 8:15 PM EDT [facility] Instructional Services Specialist ID Fela Coelho 05/07/2025 8:15 PM EDT [facility] Device ID [id number] 05/07/2025 8:15 PM EDT [facility] Specimen Type POC Capillary 05/07/2025 8:15 PM EDT [facility] Blood Capillary blood specimen / Unknown 05/07/2025 8:14 PM EDT 05/07/2025 8:15 PM EDT us Diane Guzman MD LAB POINT OF CARE T EST DOCKED DEVICE UNSOLICITED RESULTS Final Result Performing Organization Address [facility] de Phone Number HEALTHCARE [facility] [address] [place] [address] * (ABNORMAL) POCT glucose meter (05/07/2025 5:10 [...] Comment 05/07/2025 5:13 PM EDT HEALTHCARE LAB Instructional Services Specialist ID Priyanka Negrete 05/07/20 5:13 PM EDT [facility] Device ID [id number] 05/07/2025 5:13 PM EDT [facility] Specimen Type POC Capillary 05/07/2025 5:13 PM EDT [facility] Blood Capillary blood specimen / Unknown 05/07/2025 5:10 PM EDT 05/07/2025 5:13 PM EDT us Diane Guzman MD LAB POINT OF CARE T EST DOCKED DEVICE UNSOLICITED RESULTS Final Result Performing Organization Address City/[facility] Co de Phone Number [facility]ALTHCARE [facility] [address] [place] [address] * (ABNORMAL) POCT glucose meter (05/07/2025 12:04 [...] 05/07/2025 12:10 PM EDT [facility] Instructional Services Specialist ID Priyanka Negrete 05/07/20 12:10 PM EDT [facility] Device ID [id number] 05/07/2025 12:10 PM EDT [facility]ARE [facility] Specimen Type POC Capillary 05/07/2025 12:10 PM EDT [facility] Blood Capillary blood specimen / Unknown 05/07/2025 12:04 PM EDT 05/07/2025 12:10 PM EDT Diane Guzman MD LAB POINT OF CARE T EST DOCKED DEVICE UNSOLICITED RESULTS Final Result Performing Organization Address [facility] de Phone Number [facility]ARE [facility] [address] [place] [address] * (ABNORMAL) POCT glucose meter (05/07/2025 7:41 [...] Comment 05/07/2025 7:44 AM EDT [facility]ALTHCARE [facility] Instructional Services Specialist ID Priyanka Negrete 05/07/20 7:44 AM EDT [facility]ARE [facility] Device ID [id number] 05/07/2025 7:44 AM EDT [facility]ARE [facility] Specimen Type POC Capillary 05/07/2025 7:44 AM EDT [facility] Blood Capillary blood specimen / Unknown 05/07/2025 7:41 AM EDT 05/07/2025 7:44 AM EDT us Diane Guzman MD LAB POINT OF CARE T EST DOCKED DEVICE UNSOLICITED RESULTS Final Result Performing Organization Address [facility] Co de Phone Number HEALTHCARE [facility] [address] [place] [address] * (ABNORMAL) POCT glucose meter (05/07/2025 3:41 AM EDT) [facility] POCT Glucose 407(H) 74 - 99 mg/dL [...] Comment 05/07/2025 3:43 AM EDT HEALTHCARE LAB Instructional Services Specialist ID Won Casas 05/07/2025 3:43 AM EDT [facility] Device ID [id number] 05/07/2025 3:43 AM EDT [facility] Specimen Type POC Capillary 05/07/2025 3:43 AM EDT [facility] Blood Capillary blood specimen / Unknown 05/07/2025 3:41 AM EDT 05/07/2025 3:43 AM EDT Diane Guzman MD LAB POINT OF CARE T EST DOCKED DEVICE UNSOLICITED RESULTS Final Result [facility] [address] [place] [address] * (ABNORMAL) POCT glucose meter (05/06/2025 8:01 [...] 05/06/2025 8:02 PM EDT [facility] Instructional Services Specialist ID Won Casas 05/06/2025 8:02 PM EDT [facility] Device ID [id number] 05/06/2025 8:02 PM EDT [facility]ALTH[facility]ARE [facility] Specimen Type POC Capillary 05/06/2025 8:02 PM EDT [facility] Blood Capillary blood specimen / Unknown 05/06/2025 8:01 PM EDT 05/06/2025 8:02 PM EDT Diane Guzman MD LAB POINT OF CARE T EST DOCKED DEVICE UNSOLICITED RESULTS Final Result Performing Organization Address City/[facility]/ZIP Co de Phone Number HEALTHCARE [facility] [address] [place] [address] * (ABNORMAL) POCT glucose meter (05/06/2025 4:40 PM EDT) [facility] [...] Comment 05/06/2025 4:46 PM EDT HEALTHCARE LAB Instructional Services Specialist ID Sherrell Navarro 05/06/2025 4:46 PM EDT HEALTH[facility]ARE LAB Device ID [id number] 05/06/2025 4:46 PM EDT HEALTH[facility]ARE [facility] Specimen Type POC Capillary 05/06/2025 4:46 PM EDT [facility] Blood Capillary blood specimen / Unknown 05/06/2025 4:40 PM EDT 05/06/2025 4:46 PM EDT Diane Guzman MD LAB POINT OF CARE T EST DOCKED DEVICE UNSOLICITED RESULTS Final Result [facility] [address] [place] [address] * PSA, diagnostic (05/06/2025 12:27 PM EDT) Pathologist [facility] PSA, Diagnostic, Serum 0.03 0.00 - 2.50 ng/mL 05/06/2025 1:10 PM EDT [facility] Blood Venous blood specimen / Unknown Venipuncture / Unknown 05/06/2025 12:27 PM EDT 05/06/2025 12:33 PM EDT Narrative [facility] - 05/06/2025 1:10 PM EDT Performed by [employer] electrochemiluminescent immunoassay which is standardized against the PSA Zeigler Reference Standard (WHO 96/670). Results obtained with different test methods or kits cannot be used interchangeably. Diane Guzman MD LAB BLOOD ORDERABLES Final Result Performing Organization Address City/[facility] Co de Phone Number [facility] [address] [place] [address] * (ABNORMAL) POCT glucose meter (05/06/2025 11:28 AM EDT) [facility] Signature POCT Glucose 337(H) 74 - [...] Comment 05/06/2025 11:30 AM EDT HEALTHCARE LAB Instructional Services Specialist ID Sherrell Navarro 05/06/2025 11:30 AM EDT HEALTHCARE LAB Device ID [id number] 05/06/2025 11:30 AM EDT HEALTHCARE [facility] Specimen Type POC Capillary 05/06/2025 11:30 AM EDT [facility] Blood Capillary blood specimen / Unknown 05/06/2025 11:28 AM EDT 05/06/2025 11:30 AM EDT Diane Guzman MD LAB POINT OF CARE T EST DOCKED DEVICE UNSOLICITED RESULTS Final Result Performing Organization Address City/[facility]/ZIP Co de Phone Number [facility] [address] [place] [address] * (ABNORMAL) POCT glucose meter (05/06/2025 8:13 [...] Comment 05/06/2025 8:23 AM EDT HEALTHCARE LAB Instructional Services Specialist ID Sherrell Navarro 05/06/2025 8:23 AM EDT HEALTHCARE LAB Device ID [id number] 05/06/2025 8:23 AM EDT HEALTHCARE LAB Specimen Type POC Capillary 05/06/2025 8:23 AM EDT [facility] Blood Capillary blood specimen / Unknown 05/06/2025 8:13 AM EDT 05/06/2025 8:23 AM EDT Diane Guzman MD LAB POINT OF CARE T EST DOCKED DEVICE UNSOLICITED RESULTS Final Result Performing Organization Address City/State/[facility] Co de Phone Number HEALTHCARE LAB [address] [place] [address] * (ABNORMAL) POCT glucose meter (05/06/2025 3:09 AM EDT) [facility] POCT Glucose 364(H) 74 - 99 mg/dL [...] 05/06/2025 3:11 AM EDT [facility] Instructional Services Specialist ID Yessenia Won 05/06/2025 3:11 AM EDT HEALTHCARE LAB Device ID [id number] 05/06/2025 3:11 AM EDT HEALTH[facility]ARE [facility] Specimen Type POC Capillary 05/06/2025 3:11 AM EDT [facility] Blood Capillary blood specimen / Unknown 05/06/2025 3:09 AM EDT 05/06/2025 3:11 AM EDT Diane Guzman MD LAB POINT OF CARE T EST DOCKED DEVICE UNSOLICITED RESULTS Final Result Performing Organization Address City/[facility] Co de Phone Number HEALTHCARE [facility] [address] [place] [address] * (ABNORMAL) POCT glucose meter (05/05/2025 8:19 [...] Comment 05/05/2025 8:20 PM EDT HEALTHCARE [facility] Instructional Services Specialist ID Won Casas 05/05/2025 8:20 PM EDT HEALTHCARE LAB Device ID [id number] 05/05/2025 8:20 PM EDT HEALTHCARE LAB Specimen Type POC Capillary 05/05/2025 8:20 PM EDT [facility] Blood Capillary blood specimen / Unknown 05/05/2025 8:19 PM EDT 05/05/2025 8:20 PM EDT Diane Guzman MD LAB POINT OF CARE T EST DOCKED DEVICE UNSOLICITED RESULTS Final Result Performing Organization Address City/[facility]/ZIP Co de Phone Number [facility] [address] [place] [address] * (ABNORMAL) POCT glucose meter (05/05/2025 5:09 [...] Comment 05/05/2025 5:14 PM EDT HEALTHCARE LAB Instructional Services Specialist ID Sherrell Navarro 05/05/2025 5:14 PM EDT HEALTHCARE LAB Device ID [id number] 05/05/2025 5:14 PM EDT HEALTHCARE [facility] Specimen Type POC Capillary 05/05/2025 5:14 PM EDT HEALTH[facility]ARE [facility] Blood Capillary blood specimen / Unknown 05/05/2025 5:09 PM EDT 05/05/2025 5:14 PM EDT us Diane Guzman MD LAB POINT OF CARE T EST DOCKED DEVICE UNSOLICITED RESULTS Final Result Performing Organization Address City/State/[facility] Co de Phone Number HEALTHCARE [facility] [address] [place] [address] * (ABNORMAL) POCT glucose meter (05/05/2025 11:29 AM EDT) [facility] POCT Glucose 292(H) 74 - 99 mg/dL [...] Comment 05/05/2025 11:32 AM EDT HEALTHCARE LAB Instructional Services Specialist ID Sherrell Navarro 05/05/2025 11:32 AM EDT HEALTHCARE LAB Device ID [id number] 05/05/2025 11:32 AM EDT HEALTHCARE LAB Specimen Type POC Capillary 05/05/2025 11:32 AM EDT HEALTHCARE LAB Blood Capillary blood specimen / Unknown 05/05/2025 11:29 AM EDT 05/05/2025 11:32 AM EDT us Diane Guzman MD LAB POINT OF CARE T EST DOCKED DEVICE UNSOLICITED RESULTS Final Result Performing Organization Address City/[facility] Co de Phone Number HEALTHCARE [facility] [address] [place] [address] * (ABNORMAL) POCT glucose meter (05/05/2025 7:55 [...] Comment 05/05/2025 7:57 AM EDT HEALTHCARE LAB Instructional Services Specialist ID Sherrell Navarro 05/05/2025 7:57 AM EDT HEALTHCARE LAB Device ID [id number] 05/05/2025 7:57 AM EDT HEALTHCARE LAB Specimen Type POC Capillary 05/05/2025 7:57 AM EDT [facility] Blood Capillary blood specimen / Unknown 05/05/2025 7:55 AM EDT 05/05/2025 7:57 AM EDT Result [facility] Diane Guzman MD LAB POINT OF CARE T EST DOCKED DEVICE UNSOLICITED RESULTS Final Result Performing Organization Address City/[facility] Co de Phone Number [facility] [address] [place] [address] * (ABNORMAL) POCT glucose meter (05/04/2025 7:35 PM EDT) Pathologist [facility] POCT Glucose 236(H) 74 - 99 mg/dL [...] 05/04/2025 7:37 PM EDT [facility] Instructional Services Specialist ID Kaylin Barron 05/04/2025 7:37 PM EDT HEALTHCARE LAB Device ID [id number] 05/04/2025 7:37 PM EDT HEALTHCARE [facility] Specimen Type POC Capillary 05/04/2025 7:37 PM EDT HEALTH[facility]ARE [facility] Blood Capillary blood specimen / Unknown 05/04/2025 7:35 PM EDT 05/04/2025 7:37 PM EDT Diane Guzman MD LAB POINT OF CARE T EST DOCKED DEVICE UNSOLICITED RESULTS Final Result Performing Organization Address City/[facility]/ZIP Co de Phone Number HEALTHCARE [facility] [address] [place] [address] * (ABNORMAL) POCT glucose meter (05/04/2025 4:51 [...] Comment 05/04/2025 4:53 PM EDT HEALTHCARE LAB Instructional Services Specialist ID Araceli Doran 025 4:53 PM EDT HEALTHCARE LAB Device ID [id number] 05/04/2025 4:53 PM EDT HEALTHCARE LAB Specimen Type POC Capillary 05/04/2025 4:53 PM EDT [facility]ALTH[facility]ARE [facility] Blood Capillary blood specimen / Unknown 05/04/2025 4:51 PM EDT 05/04/2025 4:53 PM EDT Diane Guzman MD LAB POINT OF CARE T EST DOCKED DEVICE UNSOLICITED RESULTS Final Result Performing Organization Address City/[facility]/ZIP Co de Phone Number [facility] [address] [place] [address] * (ABNORMAL) POCT glucose meter (05/04/2025 11:51 [...] Comment 05/04/2025 11:56 AM EDT HEALTHCARE LAB Instructional Services Specialist ID Araceli Doran 025 11:56 AM EDT [facility] Device ID [id number] 05/04/2025 11:56 AM EDT HEALTHCARE LAB Specimen Type POC Capillary 05/04/2025 11:56 AM EDT [facility] Blood Capillary blood specimen / Unknown 05/04/2025 11:51 AM EDT 05/04/2025 11:56 AM EDT Diane Guzman MD LAB POINT OF CARE T EST DOCKED DEVICE UNSOLICITED RESULTS Final Result Performing Organization Address City/State/[facility] Co de Phone Number HEALTHCARE LAB [address] [place] [address] * (ABNORMAL) POCT glucose meter (05/04/2025 8:09 AM EDT) [facility] POCT Glucose 259(H) 74 - 99 mg/dL [...] Comment 05/04/2025 8:17 AM EDT HEALTHCARE LAB Instructional Services Specialist ID Araceli Doran 025 8:17 AM EDT HEALTHCARE LAB Device ID [id number] 05/04/2025 8:17 AM EDT HEALTHCARE LAB Specimen Type POC Capillary 05/04/2025 8:17 AM EDT HEALTH[facility]ARE [facility] Blood Capillary blood specimen / Unknown 05/04/2025 8:09 AM EDT 05/04/2025 8:17 AM EDT Diane Guzman MD LAB POINT OF CARE T EST DOCKED DEVICE UNSOLICITED RESULTS Final Result Performing Organization Address City/[facility]/ZIP Co de Phone Number HEALTHCARE [facility] [address] [place] [address] * (ABNORMAL) POCT glucose meter (05/04/2025 4:44 [...] Comment 05/04/2025 4:46 AM EDT HEALTHCARE LAB Instructional Services Specialist ID Kaylin Barron 05/04/2025 4:46 AM EDT HEALTHCARE LAB Device ID [id number] 05/04/2025 4:46 AM EDT HEALTHCARE LAB Specimen Type POC Capillary 05/04/2025 4:46 AM EDT [facility] Blood Capillary blood specimen / Unknown 05/04/2025 4:44 AM EDT 05/04/2025 4:46 AM EDT Diane Guzman MD LAB POINT OF CARE T EST DOCKED DEVICE UNSOLICITED RESULTS Final Result [facility] [address] [place] [address] * (ABNORMAL) POCT glucose meter (05/03/2025 7:27 [...] Comment 05/03/2025 7:33 PM EDT HEALTHCARE LAB Instructional Services Specialist ID Kaylin Barron 05/03/2025 7:33 PM EDT HEALTHCARE LAB Device ID [id number] 05/03/2025 7:33 PM EDT HEALTHCARE LAB Specimen Type POC Capillary 05/03/2025 7:33 PM EDT HEALTH[facility]ARE [facility] Blood Capillary blood specimen / Unknown 05/03/2025 7:27 PM EDT 05/03/2025 7:33 PM EDT Diane Guzman MD LAB POINT OF CARE T EST DOCKED DEVICE UNSOLICITED RESULTS Final Result Performing Organization Address City/State/[facility] Co de Phone Number HEALTHCARE LAB [address] [place] [address] * (ABNORMAL) Comprehensive metabolic panel (05/03/2025 6:22 PM EDT) Glucose, Plasma 290(H) 74 - 99 mg/dL 05/03/2025 7:13 PM EDT [facility] BUN, Plasma 14 7 - 21 mg/dL 05/03/2025 7:13 PM EDT [facility] Creatinine, Plasma 0.71 0.70 - 1.20 mg/dL 05/03/2025 7:13 PM EDT [facility] BUN/Creatinine Ratio 20 05/03/2025 7:13 PM EDT [facility] Sodium, Plasma 133(L) 136 - 145 mmol/L 05/03/2025 7:13 PM EDT [facility] Potassium, Plasma 3.6 3.6 - 4.9 mmol/L 05/03/2025 7:13 PM EDT [facility] Chloride, Plasma 87(L) 97 - 107 mmol/L 05/03/2025 7:13 PM EDT [facility] CO2, Plasma 37(H) 22 - 29 mmol/L 05/03/2025 7:13 PM EDT [facility] Anion Gap 9 6 - 16 mmol/L 05/03/2025 7:13 PM EDT [facility] Total Calcium, Plasma 9.4 8.9 - 10.2 mg/dL 05/03/2025 7:13 PM EDT [facility] Total Protein 8.0(H) 6.3 - 7.9 g/dL 05/03/2025 7:13 PM EDT [facility] Albumin, Plasma 3.6 3.5 - 5.2 g/dL 05/03/2025 7:13 PM EDT [facility] AST, Plasma 18 10 - 50 U/L 05/03/2025 7:13 PM EDT [facility] ALT, Plasma 12 10 - 50 U/L 05/03/2025 7:13 PM EDT [facility] Alkaline Phosphatase, Plasma 64 40 - 115 U/L 05/03/2025 7:13 PM EDT [facility] Total Bilirubin, Plasma 0.7 0.2 - 1.1 mg/dL 05/03/2025 7:13 PM EDT [facility] eGFRcr 113.9 mL/min/1.7 3m*2 05/03/2025 7:13 PM EDT [facility] Comment:Reported eGFRcr in m L/min/1.73m2 is based the CKD-EPI 2020 equation that does not use a race coefficient. Blood Venous blood specimen / Unknown Venipuncture / Unknown 05/03/2025 6:22 PM EDT 05/03/2025 6:38 PM EDT us Diane Guzman MD LAB BLOOD ORDERABLES Final Result [facility] [address] [place] [address] * Creatine Kinase (CK), Total (05/03/2025 6:22 PM EDT) Creatine Kinase, Plasma 54 49 - 320 U/L 05/03/2025 7:13 PM EDT [facility] Blood Venous blood specimen / Unknown Venipuncture / Unknown 05/03/2025 6:22 PM EDT 05/03/2025 6:38 PM EDT Diane Guzman MD LAB BLOOD ORDERABLES Final Result Performing Organization Address City/[facility] Co de Phone Number [facility] [address] [place] [address] * (ABNORMAL) POCT glucose meter (05/03/2025 5:30 [...] Comment 05/03/2025 5:33 PM EDT HEALTHCARE LAB Instructional Services Specialist ID Dunia Montgomery 05/03/2025 5:33 PM EDT HEALTHCARE LAB Device ID [id number] 05/03/2025 5:33 PM EDT [facility] Specimen Type POC Capillary 05/03/2025 5:33 PM EDT [facility] Blood Capillary blood specimen / Unknown 05/03/2025 5:30 PM EDT 05/03/2025 5:33 PM EDT Diane Guzman MD LAB POINT OF CARE T EST DOCKED DEVICE UNSOLICITED RESULTS Final Result Performing Organization Address City/[facility] Co de Phone Number HEALTHCARE LAB [address] [place] [address] * (ABNORMAL) POCT glucose meter (05/03/2025 11:36 [...] Comment 05/03/2025 11:38 AM EDT HEALTHCARE LAB Instructional Services Specialist ID Kindra Cardoza 05/03/2025 11:38 AM EDT HEALTHCARE LAB Device ID [id number] 05/03/2025 11:38 AM EDT HEALTHCARE LAB Specimen Type POC Capillary 05/03/2025 11:38 AM EDT [facility]ALTH[facility]ARE [facility] Blood Capillary blood specimen / Unknown 05/03/2025 11:36 AM EDT 05/03/2025 11:38 AM EDT Diane Guzman MD LAB POINT OF CARE T EST DOCKED DEVICE UNSOLICITED RESULTS Final Result Performing Organization Address [facility] Co de Phone Number HEALTHCARE LAB [address] [place] [address] * (ABNORMAL) POCT glucose meter (05/03/2025 8:09 AM EDT) [facility] Signature POCT Glucose 339(H) 74 - 99 mg/dL [...] Comment 05/03/2025 8:11 AM EDT HEALTHCARE LAB Instructional Services Specialist ID Dunia Montgomery 05/03/2025 8:11 AM EDT HEALTHCARE LAB Device ID [id number] 05/03/2025 8:11 AM EDT HEALTHCARE LAB Specimen Type POC Capillary 05/03/2025 8:11 AM EDT [facility]ALTH[facility]ARE [facility] Blood Capillary blood specimen / Unknown 05/03/2025 8:09 AM EDT 05/03/2025 8:11 AM EDT Diane Guzman MD LAB POINT OF CARE T EST DOCKED DEVICE UNSOLICITED RESULTS Final Result Performing Organization Address City/[facility]/ZIP Co de Phone Number HEALTHCARE LAB [address] [place] [address] * (ABNORMAL) POCT glucose meter (05/03/2025 3:37 AM EDT) Pathologist [facility] POCT Glucose 372(H) 74 - 99 mg/dL [...] Comment 05/03/2025 3:40 AM EDT HEALTHCARE LAB Instructional Services Specialist ID Maribell Saeed 3:40 AM EDT HEALTHCARE LAB Device ID [id number] 05/03/2025 3:40 AM EDT HEALTHCARE LAB Specimen Type POC Capillary 05/03/2025 3:40 AM EDT HEALTHCARE LAB Blood Capillary blood specimen / Unknown 05/03/2025 3:37 AM EDT 05/03/2025 3:40 AM EDT Diane Guzman MD LAB POINT OF CARE T EST DOCKED DEVICE UNSOLICITED RESULTS Final Result [facility] [address] [place] [address] * (ABNORMAL) CBC and Differential (05/03/2025 3:16 AM EDT) [facility] WBC Count 6.86 3.70 - 10.30 10*3/uL LAB HEMATOLOGY METHOD 05/03/2025 3:33 AM EDT [facility] RBC Count 3.82(L) 4.60 - 6.10 10*6/uL LAB HEMATOLOGY METHOD 05/03/2025 3:33 AM EDT [facility] HGB 8.9(L) 13.7 - 17.5 g/dL LAB HEMATOLOGY METHOD 05/03/2025 3:33 AM EDT [facility] HCT 29.2(L) 40.0 - 51.0 % LAB HEMATOLOGY METHOD 05/03/2025 3:33 AM EDT [facility] Platelet Count 202 155 - 369 10*3/uL LAB HEMATOLOGY METHOD 05/03/2025 3:33 AM EDT [facility] MCV 76(L) 79 - 98 fL LAB HEMATOLOGY METHOD 05/03/2025 3:33 AM EDT [facility] MCH 23.3(L) 26.0 - 32.0 pg LAB HEMATOLOGY METHOD 05/03/2025 3:33 AM EDT [facility] MCHC 30.5(L) 30.7 - 35.5 g/dL LAB HEMATOLOGY METHOD 05/03/2025 3:33 AM EDT [facility] RDW 18.8(H) 11.5 - 14.5 % LAB HEMATOLOGY METHOD 05/03/2025 3:33 AM EDT [facility] MPV 9.1 8.8 - 12.5 fL LAB HEMATOLOGY METHOD 05/03/2025 3:33 AM EDT [facility] nRBC 0.0 <=0.0 per 100 WBCs LAB HEMATOLOGY METHOD 05/03/2025 3:33 AM EDT [facility] Differential Type Automated LAB HEMATOLOGY METHOD 05/03/2025 3:33 AM EDT [facility] Neutrophils % 70 % LAB HEMATOLOGY METHOD 05/03/2025 3:33 AM EDT [facility] Lymphocytes % 15 % LAB HEMATOLOGY METHOD 05/03/2025 3:33 AM EDT [facility] Monocytes % 9 % LAB HEMATOLOGY METHOD 05/03/2025 3:33 AM EDT [facility] Eosinophils % 5 % LAB HEMATOLOGY METHOD 05/03/2025 3:33 AM EDT [facility] Basophils % 0 % LAB HEMATOLOGY METHOD 05/03/2025 3:33 AM EDT [facility] Immature Granulocytes % 1 % LAB HEMATOLOGY METHOD 05/03/2025 3:33 AM EDT [facility] Neutrophils Absolute 4.85 1.60 - 6.10 10*3/uL LAB HEMATOLOGY METHOD 05/03/2025 3:33 AM EDT [facility] Lymphocytes Absolute 1.03(L) 1.20 - 3.90 10*3/uL LAB HEMATOLOGY METHOD 05/03/2025 3:33 AM EDT [facility] Monocytes Absolute 0.59 0.30 - 0.90 10*3/uL LAB HEMATOLOGY METHOD 05/03/2025 3:33 AM EDT [facility] Eosinophils Absolute 0.32 0.00 - 0.50 10*3/uL LAB HEMATOLOGY METHOD 05/03/2025 3:33 AM EDT [facility] Basophils Absolute 0.03 0.00 - 0.10 10*3/uL LAB HEMATOLOGY METHOD 05/03/2025 3:33 AM EDT [facility] Immature Granulocytes Absolute 0.04 0.00 - 0.06 10*3/uL LAB HEMATOLOGY METHOD 05/03/2025 3:33 AM EDT [facility] Blood Venous blood specimen / Unknown Venipuncture / Unknown 05/03/2025 3:16 AM EDT 05/03/2025 3:25 AM EDT Narrative [facility] - 05/03/2025 3:33 AM EDT Therapeutic decision making should be based on absolute values, rather than percentages. us Marjorie Myers MD LAB BLOOD ORDERABLES Final Resul t [facility] [address] [place] [address] * (ABNORMAL) Basic Metabolic Panel, Plasma (05/03/2025 3:16 AM EDT) Glucose, Plasma 399(H) 74 - 99 mg/dL 05/03/2025 4:02 AM EDT [facility] BUN, Plasma 15 7 - 21 mg/dL 05/03/2025 4:02 AM EDT [facility] Creatinine, Plasma 0.78 0.70 - 1.20 mg/dL 05/03/2025 4:02 AM EDT [facility] BUN/Creatinine Ratio 19 05/03/2025 4:02 AM EDT [facility] Sodium, Plasma 136 136 - 145 mmol/L 05/03/2025 4:02 AM EDT [facility] Potassium, Plasma 3.6 3.6 - 4.9 mmol/L 05/03/2025 4:02 AM EDT [facility] Chloride, Plasma 90(L) 97 - 107 mmol/L 05/03/2025 4:02 AM EDT [facility] CO2, Plasma 37(H) 22 - 29 mmol/L 05/03/2025 4:02 AM EDT [facility] Anion Gap 9 6 - 16 mmol/L 05/03/2025 4:02 AM EDT [facility] Total Calcium, Plasma 9.0 8.9 - 10.2 mg/dL 05/03/2025 4:02 AM EDT [facility] eGFRcr 110.7 mL/min/1.7 3m*2 05/03/2025 4:02 AM EDT [facility] Comment:Reported eGFRcr in m L/min/1.73m2 is based the CKD-EPI 2020 equation that does not use a race coefficient. Blood Venous blood specimen / Unknown Venipuncture / Unknown 05/03/2025 3:16 AM EDT 05/03/2025 3:24 AM EDT Marjorie Myers MD LAB BLOOD ORDERABLES Final Resul t Performing Organization Address City/[facility]/ZIP Co de Phone Number [facility] [address] [place] [address] * (ABNORMAL) Magnesium, Plasma (05/03/2025 3:16 AM EDT) Magnesium, Plasma 1.7(L) 1.9 - 2.4 mg/dL 05/03/2025 4:02 AM EDT [facility] Blood Venous blood specimen / Unknown Venipuncture / Unknown 05/03/2025 3:16 AM EDT 05/03/2025 3:24 AM EDT Marjorie Myers MD LAB BLOOD ORDERABLES Final Resul t [facility] [address] [place] [address] * Phosphorus, Plasma (05/03/2025 3:16 AM EDT) Phosphorus, Plasma 3.6 2.5 - 4.5 mg/dL 05/03/2025 4:02 AM EDT [facility] Blood Venous blood specimen / Unknown Venipuncture / Unknown 05/03/2025 3:16 AM EDT 05/03/2025 3:24 AM EDT Marjorie Myers MD LAB BLOOD ORDERABLES Final Resul t Performing Organization Address [facility] Co de Phone Number [facility] [address] [place] [address] * Hepatitis B Core Total Antibody IgG,IgM (05/03/2025 3:16 AM EDT) Hepatitis B Core Total Antibody IgG,IgM Negative Negative 05/03/2025 4:28 AM EDT [facility] Blood Venous blood specimen / Unknown Venipuncture / Unknown 05/03/2025 3:16 AM EDT 05/03/2025 3:24 AM EDT us Diane Guzman MD LAB BLOOD ORDERABLES Final Result Performing Organization Address [facility] Phone Number [facility] [address] [place] [address] * Hepatitis B Surface Antigen (05/03/2025 3:16 AM EDT) Hepatitis B Surf Antigen Negative Negative 05/03/2025 4:28 AM EDT [facility] Blood Venous blood specimen / Unknown Venipuncture / Unknown 05/03/2025 3:16 AM EDT 05/03/2025 3:24 AM EDT Diane Guzman MD LAB BLOOD ORDERABLES Final Result Performing Organization Address City/[facility] Co de Phone Number [facility] [address] [place] [address] * Hepatitis B Surface Antibody, Quantitative (05/03/2025 3:16 AM EDT) Hepatitis B Surface Antibody, Quantitative <8.00 NonReactiv e: <8, Grayzone: 8 - <12, Reactive: >= 12 mIU/mL 05/03/2025 4:28 AM EDT [facility] Comment: Nonreactive. Individual is considered not immune to HBV infection. Blood Venous blood specimen / Unknown Venipuncture / Unknown 05/03/2025 3:16 AM EDT 05/03/2025 3:24 AM EDT us Diane Guzman MD LAB BLOOD ORDERABLES Final Result Performing Organization Address [facility] Co de Phone Number [facility] [address] [place] [address] * Hepatitis A Antibody IgG (05/03/2025 3:16 AM EDT) [facility] Hepatitis A Antibody IgG Negative Negative 05/03/2025 4:28 AM EDT [facility] Blood Venous blood specimen / Unknown Venipuncture / Unknown 05/03/2025 3:16 AM EDT 05/03/2025 3:24 AM EDT Diane Guzman MD LAB BLOOD ORDERABLES Final Result Performing Organization Address [facility] Phone Number [facility] [address] [place] [address] * (ABNORMAL) POCT glucose meter (05/02/2025 8:48 [...] 05/02/2025 8:50 PM EDT [facility] Instructional Services Specialist ID Maribell Saeed 8:50 PM EDT [facility] Device ID [id number] 05/02/2025 8:50 PM EDT [facility] Specimen Type POC Capillary 05/02/2025 8:50 PM EDT [facility] Blood Capillary blood specimen / Unknown 05/02/2025 8:48 PM EDT 05/02/2025 8:50 PM EDT Diane Guzman MD LAB POINT OF CARE T EST DOCKED DEVICE UNSOLICITED RESULTS Final Result Performing Organization Address City/[facility] Co de Phone Number [facility] [address] [place] [address] * (ABNORMAL) POCT glucose meter (05/02/2025 4:30 PM EDT) Pathologist [facility] POCT Glucose 250(H) 74 - 99 mg/dL [...] for testing. Comment 05/02/2025 4:32 PM EDT [facility] Instructional Services Specialist ID Sebastián Kenny 4:32 PM EDT [facility] Device ID [id number] 05/02/2025 4:32 PM EDT [facility] Specimen Type POC Capillary 05/02/2025 4:32 PM EDT [facility] Blood Capillary blood specimen / Unknown 05/02/2025 4:30 PM EDT 05/02/2025 4:32 PM EDT Diane Guzman MD LAB POINT OF CARE T EST DOCKED DEVICE UNSOLICITED RESULTS Final Result Performing Organization Address City/[facility] Co de Phone Number [facility] [address] [place] [address] * Nasopharyngeal Respiratory Panel (05/02/2025 1:05 PM EDT) [facility] Nasopharyngeal Respiratory PCR Interpretation Not Detected for all analytes Not Detected for all analytes 05/02/2025 3:14 PM EDT [facility] Swab Nasopharyngeal structure / Unknown Non-blood Collection / Unknown 05/02/2025 1:05 PM EDT 05/02/2025 1:12 PM EDT Narrative [facility] - 05/02/2025 3:14 PM [...] Respiratory PCR Panel is performed using the Dizzywoodlex instrument. This test is FDA approved for use with Nasopharyngeal swabs only. This test is used for clinical purposes. It should not be regarded as investigational or for research. The [facility] is certified under the Clinical Laboratory Improvement Amendments of 1988 (CLIA-88) as qualified to perform high complexity clinical laboratory testing. Diane Guzman MD LAB MICROBIOLOGY - GENERAL ORDERABLES Final Result [facility] [address] [place] [address] * (ABNORMAL) POCT glucose meter (05/02/2025 12:08 PM EDT) POCT Glucose 278(H) 74 - 99 mg/dL 05/02/2025 12:10 PM EDT [facility] Comment:Accuracy of a glucos e result [...] for testing. Comment 05/02/2025 12:10 PM EDT [facility] Instructional Services Specialist ID Sebastián Kenny 12:10 PM EDT [facility] Device ID [id number] 05/02/2025 12:10 PM EDT [facility] Specimen Type POC Capillary 05/02/2025 12:10 PM EDT [facility] Blood Capillary blood specimen / Unknown 05/02/2025 12:08 PM EDT 05/02/2025 12:10 PM EDT Diane Guzman MD LAB POINT OF CARE T EST DOCKED DEVICE UNSOLICITED RESULTS Final Result Performing Organization Address City/[facility] Co de Phone Number [facility] [address] [place] [address] * (ABNORMAL) POCT glucose meter (05/02/2025 8:11 [...] Comment 05/02/2025 8:12 AM EDT [facility] Instructional Services Specialist ID Sebastián Kenny 8:12 AM EDT [facility] Device ID [id number] 05/02/2025 8:12 AM EDT [facility] Specimen Type POC Capillary 05/02/2025 8:12 AM EDT [facility] Blood Capillary blood specimen / Unknown 05/02/2025 8:11 AM EDT 05/02/2025 8:12 AM EDT Diane Guzman MD LAB POINT OF CARE T EST DOCKED DEVICE UNSOLICITED RESULTS Final Result Performing Organization Address City/[facility]/ZIP Co de Phone Number [facility] [address] [place] [address] * (ABNORMAL) POCT glucose meter (05/02/2025 4:01 AM EDT) Pathologist [facility] POCT Glucose 320(H) 74 - 99 mg/dL [...] Comment 05/02/2025 4:03 AM EDT [facility] Instructional Services Specialist ID Stella Coleman 05/02/20 4:03 AM EDT [facility] Device ID [id number] 05/02/2025 4:03 AM EDT [facility] Specimen Type POC Capillary 05/02/2025 4:03 AM EDT [facility] Blood Capillary blood specimen / Unknown 05/02/2025 4:01 AM EDT 05/02/2025 4:03 AM EDT us Marjorie Myers MD LAB POINT OF CARE TE ST DOCKED DEVICE UNSOLICITED RESULTS Final Result [facility] [address] [place] [address] * (ABNORMAL) CBC and Differential (05/02/2025 3:10 AM EDT) WBC Count 7.39 3.70 - 10.30 10*3/uL LAB HEMATOLOGY METHOD 05/02/2025 3:23 AM EDT [facility] RBC Count 3.88(L) 4.60 - 6.10 10*6/uL LAB HEMATOLOGY METHOD 05/02/2025 3:23 AM EDT [facility] HGB 8.8(L) 13.7 - 17.5 g/dL LAB HEMATOLOGY METHOD 05/02/2025 3:23 AM EDT [facility] HCT 29.3(L) 40.0 - 51.0 % LAB HEMATOLOGY METHOD 05/02/2025 3:23 AM EDT [facility] Platelet Count 205 155 - 369 10*3/uL LAB HEMATOLOGY METHOD 05/02/2025 3:23 AM EDT [facility] MCV 76(L) 79 - 98 fL LAB HEMATOLOGY METHOD 05/02/2025 3:23 AM EDT [facility] MCH 22.7(L) 26.0 - 32.0 pg LAB HEMATOLOGY METHOD 05/02/2025 3:23 AM EDT [facility] MCHC 30.0(L) 30.7 - 35.5 g/dL LAB HEMATOLOGY METHOD 05/02/2025 3:23 AM EDT [facility] RDW 19.1(H) 11.5 - 14.5 % LAB HEMATOLOGY METHOD 05/02/2025 3:23 AM EDT [facility] MPV 8.5(L) 8.8 - 12.5 fL LAB HEMATOLOGY METHOD 05/02/2025 3:23 AM EDT [facility] nRBC 0.0 <=0.0 per 100 WBCs LAB HEMATOLOGY METHOD 05/02/2025 3:23 AM EDT [facility] Differential Type Automated LAB HEMATOLOGY METHOD 05/02/2025 3:23 AM EDT [facility] Neutrophils % 74 % LAB HEMATOLOGY METHOD 05/02/2025 3:23 AM EDT [facility] Lymphocytes % 13 % LAB HEMATOLOGY METHOD 05/02/2025 3:23 AM EDT [facility] Monocytes % 8 % LAB HEMATOLOGY METHOD 05/02/2025 3:23 AM EDT [facility] Eosinophils % 4 % LAB HEMATOLOGY METHOD 05/02/2025 3:23 AM EDT [facility] Basophils % 0 % LAB HEMATOLOGY METHOD 05/02/2025 3:23 AM EDT [facility] Immature Granulocytes % 1 % LAB HEMATOLOGY METHOD 05/02/2025 3:23 AM EDT [facility] Neutrophils Absolute 5.45 1.60 - 6.10 10*3/uL LAB HEMATOLOGY METHOD 05/02/2025 3:23 AM EDT [facility] Lymphocytes Absolute 0.96(L) 1.20 - 3.90 10*3/uL LAB HEMATOLOGY METHOD 05/02/2025 3:23 AM EDT [facility] Monocytes Absolute 0.62 0.30 - 0.90 10*3/uL LAB HEMATOLOGY METHOD 05/02/2025 3:23 AM EDT [facility] Eosinophils Absolute 0.30 0.00 - 0.50 10*3/uL LAB HEMATOLOGY METHOD 05/02/2025 3:23 AM EDT [facility] Basophils Absolute 0.01 0.00 - 0.10 10*3/uL LAB HEMATOLOGY METHOD 05/02/2025 3:23 AM EDT [facility] Immature Granulocytes Absolute 0.05 0.00 - 0.06 10*3/uL LAB HEMATOLOGY METHOD 05/02/2025 3:23 AM EDT [facility] Blood Venous blood specimen / Unknown Venipuncture / Unknown 05/02/2025 3:10 AM EDT 05/02/2025 3:14 AM EDT Narrative [facility] - 05/02/2025 3:23 AM EDT Therapeutic decision making should be based on absolute values, rather than percentages. us Marjorie Myers MD LAB BLOOD ORDERABLES Final Resul t [facility] [address] [place] [address] * (ABNORMAL) Basic Metabolic Panel, Plasma (05/02/2025 3:10 AM EDT) Glucose, Plasma 358(H) 74 - 99 mg/dL 05/02/2025 3:45 AM EDT [facility] BUN, Plasma 12 7 - 21 mg/dL 05/02/2025 3:45 AM EDT [facility] Creatinine, Plasma 0.73 0.70 - 1.20 mg/dL 05/02/2025 3:45 AM EDT [facility] BUN/Creatinine Ratio 16 05/02/2025 3:45 AM EDT [facility] Sodium, Plasma 134(L) 136 - 145 mmol/L 05/02/2025 3:45 AM EDT [facility] Potassium, Plasma 3.3(L) 3.6 - 4.9 mmol/L 05/02/2025 3:45 AM EDT [facility] Chloride, Plasma 90(L) 97 - 107 mmol/L 05/02/2025 3:45 AM EDT [facility] CO2, Plasma 37(H) 22 - 29 mmol/L 05/02/2025 3:45 AM EDT [facility] Anion Gap 7 6 - 16 mmol/L 05/02/2025 3:45 AM EDT [facility] Total Calcium, Plasma 8.7(L) 8.9 - 10.2 mg/dL 05/02/2025 3:45 AM EDT [facility] eGFRcr 112.9 mL/min/1.7 3m*2 05/02/2025 3:45 AM EDT [facility] Comment:Reported eGFRcr in m L/min/1.73m2 is based the CKD-EPI 2020 equation that does not use a race coefficient. Blood Venous blood specimen / Unknown Venipuncture / Unknown 05/02/2025 3:10 AM EDT 05/02/2025 3:15 AM EDT us Marjorie Myers MD LAB BLOOD ORDERABLES Final Resul t [facility] [address] [place] [address] * (ABNORMAL) Magnesium, Plasma (05/02/2025 3:10 AM EDT) Magnesium, Plasma 1.6(L) 1.9 - 2.4 mg/dL 05/02/2025 3:45 AM EDT [facility] Blood Venous blood specimen / Unknown Venipuncture / Unknown 05/02/2025 3:10 AM EDT 05/02/2025 3:15 AM EDT us Marjorie Myers MD LAB BLOOD ORDERABLES Final Resul t Performing Organization Address City/[facility]/ZIP Co de Phone Number [facility] [address] [place] [address] * Phosphorus, Plasma (05/02/2025 3:10 AM EDT) Phosphorus, Plasma 3.0 2.5 - 4.5 mg/dL 05/02/2025 3:45 AM EDT [facility] Blood Venous blood specimen / Unknown Venipuncture / Unknown 05/02/2025 3:10 AM EDT 05/02/2025 3:15 AM EDT us Marjorie Myers MD LAB BLOOD ORDERABLES Final Resul t Performing Organization Address City/[facility]/ZIP Co de Phone Number [facility] [address] [place] [address] * Creatine Kinase (CK), Total (05/02/2025 3:10 AM EDT) Creatine Kinase, Plasma 50 49 - 320 U/L 05/02/2025 3:45 AM EDT [facility] Blood Venous blood specimen / Unknown Venipuncture / Unknown 05/02/2025 3:10 AM EDT 05/02/2025 3:15 AM EDT Marjorie Myers MD LAB BLOOD ORDERABLES Final Resul t Performing Organization Address City/[facility]/ZIP Co de Phone Number [facility] [address] [place] [address] * (ABNORMAL) POCT glucose meter (05/01/2025 8:26 [...] Comment 05/01/2025 8:27 PM EDT [facility] Instructional Services Specialist ID Stella Coleman 05/01/20 8:27 PM EDT [facility] Device ID [id number] 05/01/2025 8:27 PM EDT [facility] Specimen Type POC Capillary 05/01/2025 8:27 PM EDT [facility] Blood Capillary blood specimen / Unknown 05/01/2025 8:26 PM EDT 05/01/2025 8:27 PM EDT Marjorie Myers MD LAB POINT OF CARE TE ST DOCKED DEVICE UNSOLICITED RESULTS Final Result [facility] [address] [place] [address] * (ABNORMAL) POCT glucose meter (05/01/2025 5:55 [...] 05/01/2025 5:57 PM EDT [facility] Instructional Services Specialist ID Sebastián Kenny 5:57 PM EDT [facility] Device ID [id number] 05/01/2025 5:57 PM EDT [facility] Specimen Type POC Capillary 05/01/2025 5:57 PM EDT [facility] Blood Capillary blood specimen / Unknown 05/01/2025 5:55 PM EDT 05/01/2025 5:57 PM EDT Marjorie Myers MD LAB POINT OF CARE TE ST DOCKED DEVICE UNSOLICITED RESULTS Final Result Performing Organization Address City/State/[facility] Co de Phone Number [facility] [address] [place] [address] * (ABNORMAL) POCT glucose meter (05/01/2025 11:51 [...] 05/01/2025 11:53 AM EDT [facility] Instructional Services Specialist ID Sebastián Kenny 11:53 AM EDT [facility] Device ID [id number] 05/01/2025 11:53 AM EDT [facility] Specimen Type POC Capillary 05/01/2025 11:53 AM EDT [facility] Blood Capillary blood specimen / Unknown 05/01/2025 11:51 AM EDT 05/01/2025 11:53 AM EDT Marjorie Myers MD LAB POINT OF CARE TE ST DOCKED DEVICE UNSOLICITED RESULTS Final Result Performing Organization Address [facility] de Phone Number [facility] [address] [place] [address] * (ABNORMAL) POCT glucose meter (05/01/2025 9:13 [...] for testing. Comment 05/01/2025 9:15 AM EDT [facility] Instructional Services Specialist ID Francisco Javier Martin 05/01/2025 9:15 AM EDT [facility] Device ID [id number] 05/01/2025 9:15 AM EDT [facility] Specimen Type POC Capillary 05/01/2025 9:15 AM EDT [facility] Blood Capillary blood specimen / Unknown 05/01/2025 9:13 AM EDT 05/01/2025 9:15 AM EDT Marjorie Myers MD LAB POINT OF CARE TE ST DOCKED DEVICE UNSOLICITED RESULTS Final Result Performing Organization Address City/[facility] de Phone Number [facility] [address] [place] [id number] * Surgical Pathology Exam (05/01/2025 8:13 AM EDT) Case Report Surgical Pathology Case: [id number] Authorizing Provider: Mary Vicente MD Collected: 05/01/2025 0813 Ordering Location: [facility] A OPERATING ROOM Received: 05/01/2025 09 Pathologist: Vidya Ly MD Specimens: A) - Toe, Right, R 5th toe B) - Toe, Right, R 5th toe margin 05/09/2025 9:56 AM EDT [facility] Correction History Case amended to provide diagnosis after final decal sections received 05/09/2025 9:56 AM EDT [facility] Comment:These results have b een appended to a previously final verified report. Final Diagnosis A. RIGHT FIFTH TOE, AMPUTATION: - ULCER WITH SUPPURATIVE INFLAMMATION, GANGRENOUS NECROSIS, AND UNDERLYING ACUTE OSTEOMYELITIS. B. RIGHT FIFTH TOE MARGIN, RESECTION: - NO ACUTE OSTEOMYELITIS IDENTIFIED. 05/09/2025 9:56 AM EDT [facility] Amendment electronically signed by Vidya Ly MD on 05/09/2025 at 0956 EDT at 1233 EDT Comment:Corrected result: Pr eviously reported as [Previous value contains rich text formatting which cannot be displayed here] (see Result History) on 05/05/2025 at 1233 EDT. Clinical Information Other chronic osteomyelitis of right foot ([facility]) [M86.671] 05/09/2025 9:56 AM EDT [facility] Gross Description A. R [...] The wound extends into the underlying bone. [employer] sections are submitted as follows: A1-A2: Necrotic [...] BLAS Kwok (ASCP) 05/09/2025 9:56 AM EDT [facility] Note: 05/09/2025 9:56 AM EDT [facility] Comment:Corrected result: Pr eviously reported [...] Edited Result - Final Performing Organization Address City/[facility]/ZIP Co de Phone Number [facility] [address] [place] [address] * Type and Screen (05/01/2025 6:49 AM [...] ORDERA BLES Final Result Performing Organization Address [facility] Co de Phone Number BLOOD BANK [address] [place] [address], * (ABNORMAL) POCT glucose meter (05/01/2025 6:48 AM EDT) POCT Glucose 222(H) 74 - 99 mg/dL 05/01/2025 6:50 AM EDT [facility] Comment:Accuracy of a glucos e result [...] Comment 05/01/2025 6:50 AM EDT [facility] Instructional Services Specialist ID Emelina Romero 6:50 AM EDT [facility] Device ID [id number] 05/01/2025 6:50 AM EDT [facility] Specimen Type POC Venous 05/01/2025 6:50 AM EDT [facility] Blood Venous blood specimen / Unknown 05/01/2025 6:48 AM EDT 05/01/2025 6:50 AM EDT us Marjorie Myers MD LAB POINT OF CARE TE ST DOCKED DEVICE UNSOLICITED RESULTS Final Result Performing Organization Address City/[facility]/ZIP Co de Phone Number [facility] [address] [place] [address] * Creatine Kinase (CK), Total (05/01/2025 2:14 AM EDT) Pathologist [facility] Creatine Kinase, Plasma 60 49 - 320 U/L 05/01/2025 2:53 AM EDT [facility] Blood Venous blood specimen / Unknown Venipuncture / Unknown 05/01/2025 2:14 AM EDT 05/01/2025 2:26 AM EDT Marjorie Myers MD LAB BLOOD ORDERABLES Final Resul t [facility] [address] [place] [address] * (ABNORMAL) CBC and Differential (05/01/2025 2:14 AM EDT) WBC Count 6.96 3.70 - 10.30 10*3/uL LAB HEMATOLOGY METHOD 05/01/2025 2:37 AM EDT [facility] RBC Count 4.23(L) 4.60 - 6.10 10*6/uL LAB HEMATOLOGY METHOD 05/01/2025 2:37 AM EDT [facility] HGB 9.8(L) 13.7 - 17.5 g/dL LAB HEMATOLOGY METHOD 05/01/2025 2:37 AM EDT [facility] HCT 32.5(L) 40.0 - 51.0 % LAB HEMATOLOGY METHOD 05/01/2025 2:37 AM EDT [facility] Platelet Count 218 155 - 369 10*3/uL LAB HEMATOLOGY METHOD 05/01/2025 2:37 AM EDT [facility] MCV 77(L) 79 - 98 fL LAB HEMATOLOGY METHOD 05/01/2025 2:37 AM EDT [facility] MCH 23.2(L) 26.0 - 32.0 pg LAB HEMATOLOGY METHOD 05/01/2025 2:37 AM EDT [facility] MCHC 30.2(L) 30.7 - 35.5 g/dL LAB HEMATOLOGY METHOD 05/01/2025 2:37 AM EDT [facility] RDW 19.1(H) 11.5 - 14.5 % LAB HEMATOLOGY METHOD 05/01/2025 2:37 AM EDT [facility] MPV 8.4(L) 8.8 - 12.5 fL LAB HEMATOLOGY METHOD 05/01/2025 2:37 AM EDT [facility] nRBC 0.0 <=0.0 per 100 WBCs LAB HEMATOLOGY METHOD 05/01/2025 2:37 AM EDT [facility] Differential Type Automated LAB HEMATOLOGY METHOD 05/01/2025 2:37 AM EDT [facility] Neutrophils % 76 % LAB HEMATOLOGY METHOD 05/01/2025 2:37 AM EDT [facility] Lymphocytes % 11 % LAB HEMATOLOGY METHOD 05/01/2025 2:37 AM EDT [facility] Monocytes % 8 % LAB HEMATOLOGY METHOD 05/01/2025 2:37 AM EDT [facility] Eosinophils % 4 % LAB HEMATOLOGY METHOD 05/01/2025 2:37 AM EDT [facility] Basophils % 0 % LAB HEMATOLOGY METHOD 05/01/2025 2:37 AM EDT [facility] Immature Granulocytes % 1 % LAB HEMATOLOGY METHOD 05/01/2025 2:37 AM EDT [facility] Neutrophils Absolute 5.26 1.60 - 6.10 10*3/uL LAB HEMATOLOGY METHOD 05/01/2025 2:37 AM EDT [facility] Lymphocytes Absolute 0.79(L) 1.20 - 3.90 10*3/uL LAB HEMATOLOGY METHOD 05/01/2025 2:37 AM EDT [facility] Monocytes Absolute 0.57 0.30 - 0.90 10*3/uL LAB HEMATOLOGY METHOD 05/01/2025 2:37 AM EDT [facility] Eosinophils Absolute 0.28 0.00 - 0.50 10*3/uL LAB HEMATOLOGY METHOD 05/01/2025 2:37 AM EDT [facility] Basophils Absolute 0.02 0.00 - 0.10 10*3/uL LAB HEMATOLOGY METHOD 05/01/2025 2:37 AM EDT [facility] Immature Granulocytes Absolute 0.04 0.00 - 0.06 10*3/uL LAB HEMATOLOGY METHOD 05/01/2025 2:37 AM EDT [facility] Blood Venous blood specimen / Unknown Venipuncture / Unknown 05/01/2025 2:14 AM EDT 05/01/2025 2:26 AM EDT Narrative [facility] - 05/01/2025 2:37 AM EDT Therapeutic decision making should be based on absolute values, rather than percentages. us Marjorie Myers MD LAB BLOOD ORDERABLES Final Resul t [facility] [address] [place] [address] * (ABNORMAL) Basic Metabolic Panel, Plasma (05/01/2025 2:14 AM EDT) Glucose, Plasma 266(H) 74 - 99 mg/dL 05/01/2025 2:53 AM EDT [facility] BUN, Plasma 9 7 - 21 mg/dL 05/01/2025 2:53 AM EDT [facility] Creatinine, Plasma 0.71 0.70 - 1.20 mg/dL 05/01/2025 2:53 AM EDT [facility] BUN/Creatinine Ratio 13 05/01/2025 2:53 AM EDT [facility] Sodium, Plasma 137 136 - 145 mmol/L 05/01/2025 2:53 AM EDT [facility] Potassium, Plasma 3.4(L) 3.6 - 4.9 mmol/L 05/01/2025 2:53 AM EDT [facility] Chloride, Plasma 91(L) 97 - 107 mmol/L 05/01/2025 2:53 AM EDT [facility] CO2, Plasma 36(H) 22 - 29 mmol/L 05/01/2025 2:53 AM EDT [facility] Anion Gap 10 6 - 16 mmol/L 05/01/2025 2:53 AM EDT [facility] Total Calcium, Plasma 8.6(L) 8.9 - 10.2 mg/dL 05/01/2025 2:53 AM EDT [facility] eGFRcr 113.9 mL/min/1.7 3m*2 05/01/2025 2:53 AM EDT [facility] Comment:Reported eGFRcr in m L/min/1.73m2 is based the CKD-EPI 2020 equation that does not use a race coefficient. Blood Venous blood specimen / Unknown Venipuncture / Unknown 05/01/2025 2:14 AM EDT 05/01/2025 2:26 AM EDT us Marjorie Myers MD LAB BLOOD ORDERABLES Final Resul t [facility] [address] [place] [address] * (ABNORMAL) Magnesium, Plasma (05/01/2025 2:14 AM EDT) Magnesium, Plasma 1.8(L) 1.9 - 2.4 mg/dL 05/01/2025 2:53 AM EDT [facility] Blood Venous blood specimen / Unknown Venipuncture / Unknown 05/01/2025 2:14 AM EDT 05/01/2025 2:26 AM EDT us Marjorie Myers MD LAB BLOOD ORDERABLES Final Resul t [facility] [address] [place] [address] * Phosphorus, Plasma (05/01/2025 2:14 AM EDT) Pathologist [facility] Phosphorus, Plasma 3.0 2.5 - 4.5 mg/dL 05/01/2025 2:53 AM EDT [facility] Blood Venous blood specimen / Unknown Venipuncture / Unknown 05/01/2025 2:14 AM EDT 05/01/2025 2:26 AM EDT us Marjorie Myers MD LAB BLOOD ORDERABLES Final Resul t [facility] [address] [place] [address] * (ABNORMAL) POCT glucose meter (04/30/2025 8:21 PM EDT) [facility] [...] 04/30/2025 8:23 PM EDT [facility] Instructional Services Specialist ID Sandra Perez 04/30/20 25 8:23 PM EDT [facility] Device ID [id number] 04/30/2025 8:23 PM EDT [facility] Specimen Type POC Capillary 04/30/2025 8:23 PM EDT [facility] Blood Capillary blood specimen / Unknown 04/30/2025 8:21 PM EDT 04/30/2025 8:23 PM EDT us Marjorie Myers MD LAB POINT OF CARE TE ST DOCKED DEVICE UNSOLICITED RESULTS Final Result [facility] [address] [place] [address] * (ABNORMAL) POCT glucose meter (04/30/2025 4:19 PM EDT) [facility] POCT Glucose 173(H) 74 - 99 mg/dL 04/30/2025 4:54 PM EDT [facility] Comment:Accuracy of a [...] Comment 04/30/2025 4:54 PM EDT [facility] Instructional Services Specialist ID Priyanka Negrete 04/30/20 4:54 PM EDT [facility] Device ID [id number] 04/30/2025 4:54 PM EDT [facility] Specimen Type POC Capillary 04/30/2025 4:54 PM EDT [facility] Blood Capillary blood specimen / Unknown 04/30/2025 4:19 PM EDT 04/30/2025 4:54 PM EDT Marjorie Myers MD LAB POINT OF CARE TE ST DOCKED DEVICE UNSOLICITED RESULTS Final Result Performing Organization Address City/State/[facility] Co de Phone Number [facility] [address] [place] [address] * (ABNORMAL) POCT glucose meter (04/30/2025 12:11 [...] 04/30/2025 12:50 PM EDT [facility] Instructional Services Specialist ID Priyanka Negrete 04/30/20 12:50 PM EDT [facility] Device ID [id number] 04/30/2025 12:50 PM EDT [facility] Specimen Type POC Capillary 04/30/2025 12:50 PM EDT [facility] Blood Capillary blood specimen / Unknown 04/30/2025 12:11 PM EDT 04/30/2025 12:50 PM EDT Marjorie Myers MD LAB POINT OF CARE TE ST DOCKED DEVICE UNSOLICITED RESULTS Final Result [facility] [address] [place] [address] * (ABNORMAL) POCT glucose meter (04/30/2025 8:18 [...] Comment 04/30/2025 8:55 AM EDT [facility] Instructional Services Specialist ID Priyanka Negrete 04/30/20 8:55 AM EDT [facility] Device ID [id number] 04/30/2025 8:55 AM EDT [facility] Specimen Type POC Capillary 04/30/2025 8:55 AM EDT [facility] Blood Capillary blood specimen / Unknown 04/30/2025 8:18 AM EDT 04/30/2025 8:55 AM EDT Marjorie Myers MD LAB POINT OF CARE TE ST DOCKED DEVICE UNSOLICITED RESULTS Final Result [facility] [address] [place] [address] * (ABNORMAL) CBC and Differential (04/30/2025 3:19 AM EDT) WBC Count 8.84 3.70 - 10.30 10*3/uL LAB HEMATOLOGY METHOD 04/30/2025 3:35 AM EDT [facility] RBC Count 4.31(L) 4.60 - 6.10 10*6/uL LAB HEMATOLOGY METHOD 04/30/2025 3:35 AM EDT [facility] HGB 9.6(L) 13.7 - 17.5 g/dL LAB HEMATOLOGY METHOD 04/30/2025 3:35 AM EDT [facility] HCT 32.6(L) 40.0 - 51.0 % LAB HEMATOLOGY METHOD 04/30/2025 3:35 AM EDT [facility] Platelet Count 245 155 - 369 10*3/uL LAB HEMATOLOGY METHOD 04/30/2025 3:35 AM EDT [facility] MCV 76(L) 79 - 98 fL LAB HEMATOLOGY METHOD 04/30/2025 3:35 AM EDT [facility] MCH 22.3(L) 26.0 - 32.0 pg LAB HEMATOLOGY METHOD 04/30/2025 3:35 AM EDT [facility] MCHC 29.4(L) 30.7 - 35.5 g/dL LAB HEMATOLOGY METHOD 04/30/2025 3:35 AM EDT [facility] RDW 19.1(H) 11.5 - 14.5 % LAB HEMATOLOGY METHOD 04/30/2025 3:35 AM EDT [facility] MPV 8.5(L) 8.8 - 12.5 fL LAB HEMATOLOGY METHOD 04/30/2025 3:35 AM EDT [facility] nRBC 0.0 <=0.0 per 100 WBCs LAB HEMATOLOGY METHOD 04/30/2025 3:35 AM EDT [facility] Differential Type Automated LAB HEMATOLOGY METHOD 04/30/2025 3:35 AM EDT [facility] Neutrophils % 78 % LAB HEMATOLOGY METHOD 04/30/2025 3:35 AM EDT [facility] Lymphocytes % 11 % LAB HEMATOLOGY METHOD 04/30/2025 3:35 AM EDT [facility] Monocytes % 7 % LAB HEMATOLOGY METHOD 04/30/2025 3:35 AM EDT [facility] Eosinophils % 3 % LAB HEMATOLOGY METHOD 04/30/2025 3:35 AM EDT [facility] Basophils % 0 % LAB HEMATOLOGY METHOD 04/30/2025 3:35 AM EDT [facility] Immature Granulocytes % 1 % LAB HEMATOLOGY METHOD 04/30/2025 3:35 AM EDT [facility] Neutrophils Absolute 6.90(H) 1.60 - 6.10 10*3/uL LAB HEMATOLOGY METHOD 04/30/2025 3:35 AM EDT [facility] Lymphocytes Absolute 0.95(L) 1.20 - 3.90 10*3/uL LAB HEMATOLOGY METHOD 04/30/2025 3:35 AM EDT [facility] Monocytes Absolute 0.64 0.30 - 0.90 10*3/uL LAB HEMATOLOGY METHOD 04/30/2025 3:35 AM EDT [facility] Eosinophils Absolute 0.29 0.00 - 0.50 10*3/uL LAB HEMATOLOGY METHOD 04/30/2025 3:35 AM EDT [facility] Basophils Absolute 0.02 0.00 - 0.10 10*3/uL LAB HEMATOLOGY METHOD 04/30/2025 3:35 AM EDT [facility] Immature Granulocytes Absolute 0.04 0.00 - 0.06 10*3/uL LAB HEMATOLOGY METHOD 04/30/2025 3:35 AM EDT [facility] Blood Venous blood specimen / Unknown Venipuncture / Unknown 04/30/2025 3:19 AM EDT 04/30/2025 3:26 AM EDT Narrative [facility] - 04/30/2025 3:35 AM EDT Therapeutic decision making should be based on absolute values, rather than percentages. us Marjorie Myers MD LAB BLOOD ORDERABLES Final Resul t [facility] [address] [place] [address] * (ABNORMAL) Basic Metabolic Panel, Plasma (04/30/2025 3:19 AM EDT) Glucose, Plasma 254(H) 74 - 99 mg/dL 04/30/2025 3:56 AM EDT [facility] BUN, Plasma 11 7 - 21 mg/dL 04/30/2025 3:56 AM EDT [facility] Creatinine, Plasma 0.77 0.70 - 1.20 mg/dL 04/30/2025 3:56 AM EDT [facility] BUN/Creatinine Ratio 14 04/30/2025 3:56 AM EDT [facility] Sodium, Plasma 137 136 - 145 mmol/L 04/30/2025 3:56 AM EDT [facility] Potassium, Plasma 3.3(L) 3.6 - 4.9 mmol/L 04/30/2025 3:56 AM EDT [facility] Chloride, Plasma 91(L) 97 - 107 mmol/L 04/30/2025 3:56 AM EDT [facility] CO2, Plasma 36(H) 22 - 29 mmol/L 04/30/2025 3:56 AM EDT [facility] Anion Gap 10 6 - 16 mmol/L 04/30/2025 3:56 AM EDT [facility] Total Calcium, Plasma 8.7(L) 8.9 - 10.2 mg/dL 04/30/2025 3:56 AM EDT [facility] eGFRcr 111.1 mL/min/1.7 3m*2 04/30/2025 3:56 AM EDT [facility] Comment:Reported eGFRcr in m L/min/1.73m2 is based the CKD-EPI 2020 equation that does not use a race coefficient. Blood Venous blood specimen / Unknown Venipuncture / Unknown 04/30/2025 3:19 AM EDT 04/30/2025 3:26 AM EDT us Marjorie Myers MD LAB BLOOD ORDERABLES Final Resul t [facility] [address] [place] [address] * (ABNORMAL) Magnesium, Plasma (04/30/2025 3:19 AM EDT) Magnesium, Plasma 1.5(L) 1.9 - 2.4 mg/dL 04/30/2025 3:56 AM EDT [facility] Blood Venous blood specimen / Unknown Venipuncture / Unknown 04/30/2025 3:19 AM EDT 04/30/2025 3:26 AM EDT us Marjorie Myers MD LAB BLOOD ORDERABLES Final Resul t Performing Organization Address City/[facility]/ZIP Co de Phone Number [facility] [address] [place] [address] * Phosphorus, Plasma (04/30/2025 3:19 AM EDT) [facility] Phosphorus, Plasma 2.7 2.5 - 4.5 mg/dL 04/30/2025 3:56 AM EDT [facility] Blood Venous blood specimen / Unknown Venipuncture / Unknown 04/30/2025 3:19 AM EDT 04/30/2025 3:26 AM EDT us Marjorie Myers MD LAB BLOOD ORDERABLES Final Resul t Performing Organization Address [facility] Co de Phone Number [facility] [address] [place] [address] * (ABNORMAL) POCT glucose meter (04/29/2025 7:38 PM EDT) [facility] POCT Glucose 191(H) 74 - 99 mg/dL [...] 04/29/2025 9:20 PM EDT [facility] Instructional Services Specialist ID Ervin Du V 025 9:20 PM EDT [facility] Device ID [id number] 04/29/2025 9:20 PM EDT [facility] Specimen Type POC Capillary 04/29/2025 9:20 PM EDT [facility] Blood Capillary blood specimen / Unknown 04/29/2025 7:38 PM EDT 04/29/2025 9:20 PM EDT us Marjorie Myers MD LAB POINT OF CARE TE ST DOCKED DEVICE UNSOLICITED RESULTS Final Result Performing Organization Address City/[facility]/ZIP Co de Phone Number [facility] [address] [place] [id number] * (ABNORMAL) POCT glucose meter (04/29/2025 5:21 PM EDT) [facility] POCT Glucose 241(H) 74 - 99 mg/dL [...] Comment 04/29/2025 5:23 PM EDT [facility] Instructional Services Specialist ID Rocio Dozier 04/29/20 5:23 PM EDT [facility] Device ID [id number] 04/29/2025 5:23 PM EDT [facility] Specimen Type POC Capillary 04/29/2025 5:23 PM EDT [facility] Blood Capillary blood specimen / Unknown 04/29/2025 5:21 PM EDT 04/29/2025 5:23 PM EDT Marjorie Myers MD LAB POINT OF CARE TE ST DOCKED DEVICE UNSOLICITED RESULTS Final Result [facility] [address] [place] [address] * (ABNORMAL) POCT glucose meter (04/29/2025 11:15 [...] 04/29/2025 11:17 AM EDT [facility] Instructional Services Specialist ID Rocio Dozier 04/29/20 11:17 AM EDT [facility] Device ID [id number] 04/29/2025 11:17 AM EDT [facility] Specimen Type POC Capillary 04/29/2025 11:17 AM EDT [facility] Blood Capillary blood specimen / Unknown 04/29/2025 11:15 AM EDT 04/29/2025 11:17 AM EDT Marjorie Myers MD LAB POINT OF CARE TE ST DOCKED DEVICE UNSOLICITED RESULTS Final Result [facility] [address] [place] [address] * (ABNORMAL) POCT glucose meter (04/29/2025 7:13 AM EDT) [facility] POCT Glucose 269(H) 74 - 99 mg/dL [...] Comment 04/29/2025 7:14 AM EDT [facility] Instructional Services Specialist ID Rocio Dozier 04/29/20 7:14 AM EDT [facility] Device ID [id number] 04/29/2025 7:14 AM EDT [facility] Specimen Type POC Capillary 04/29/2025 7:14 AM EDT [facility] Blood Capillary blood specimen / Unknown 04/29/2025 7:13 AM EDT 04/29/2025 7:14 AM EDT Marjorie Myers MD LAB POINT OF CARE TE ST DOCKED DEVICE UNSOLICITED RESULTS Final Result [facility] [address] [place] [address] * Folate (04/29/2025 3:04 AM EDT) Pathologist [facility] Folate, Serum 10.5 >4.6 ng/mL 04/29/2025 4:05 AM EDT [facility] Blood Venous blood specimen / Unknown Venipuncture / Unknown 04/29/2025 3:04 AM EDT 04/29/2025 3:20 AM EDT us Sy De La Fuente APRN, DENISE LAB BLOOD ORDERABLES Fin al Result Performing Organization Address City/[facility] de Phone Number [facility] [address] [place] [address] * Vitamin B12 (04/29/2025 3:04 AM EDT) Vitamin B12, Serum 338 210 - 1,033 pg/mL 04/29/2025 4:06 AM EDT [facility] Blood Venous blood specimen / Unknown Venipuncture / Unknown 04/29/2025 3:04 AM EDT 04/29/2025 3:20 AM EDT us Sy De La Fuente APRN, DNP LAB BLOOD ORDERABLES Fin al Result Performing Organization Address [facility] de Phone Number [facility] [address] [place] [address] * (ABNORMAL) Iron & Total Iron Binding Capacity, Plasma (Includes Transferrin) (04/29/2025 3:04 AM EDT) Iron, Plasma 36(L) 50 - 170 ug/dL 04/29/2025 3:55 AM EDT [facility] Transferrin, Plasma 197(L) 200 - 360 mg/dL 04/29/2025 3:55 AM EDT [facility] Total Iron Binding Capacity, Plasma 246 240 - 450 ug/mL 04/29/2025 3:55 AM EDT [facility] Transferrin Saturation 15 14 - 50 % 04/29/2025 3:55 AM EDT [facility] Blood Venous blood specimen / Unknown Venipuncture / Unknown 04/29/2025 3:04 AM EDT 04/29/2025 3:19 AM EDT us Sy De La Fuente APRN, DNP LAB BLOOD ORDERABLES Fin al Result Performing Organization Address City/[facility]/ZIP Co de Phone Number [facility] [address] [place] [address] * Ferritin (04/29/2025 3:04 AM EDT) Ferritin, Serum 40 20 - 400 ng/mL 04/29/2025 4:06 AM EDT [facility] Blood Venous blood specimen / Unknown Venipuncture / Unknown 04/29/2025 3:04 AM EDT 04/29/2025 3:20 AM EDT us Sy De La Fuente APRN, DENISE LAB BLOOD ORDERABLES Fin al Result Performing Organization Address [facility] Co de Phone Number [facility] [address] [place] [address] * Cortisol (04/29/2025 3:04 AM EDT) Cortisol 2.80 Before 10am: 3.7 - 19.4. After 5pm: 2.9 - 17.3 ug/dL 04/29/2025 4:22 AM EDT [facility] Comment:Testing performed on [employer], standardized against ALF Reference Standard concentration values assigned by LC-MS/MS and verified by BCR 192 and BCR 193 certified reference materials. Blood Venous blood specimen / Unknown Venipuncture / Unknown 04/29/2025 3:04 AM EDT 04/29/2025 3:19 AM EDT us Sy De La Fuente APRN, DNP LAB REF LAB BLOOD AND [place] UID ORD Final Result Performing Organization Address City/[facility]/ZIP Co de Phone Number [facility] [address] [place] [address] * TSH (04/29/2025 3:04 AM EDT) Thyroid Stimulating Hormone, Plasma 1.58 0.40 - 4.20 uIU/mL 04/29/2025 3:55 AM EDT [facility] Blood Venous blood specimen / Unknown Venipuncture / Unknown 04/29/2025 3:04 AM EDT 04/29/2025 3:19 AM EDT us Sy De La Fuente CNC SERVICE ENGINEER, DNP LAB BLOOD ORDERABLES Fin al Result Performing Organization Address City/[facility] Co de Phone Number [facility] [address] [place] [address] * (ABNORMAL) Hemoglobin A1c (04/29/2025 3:04 AM EDT) Hemoglobin A1c 8.9(H) <5.7 % 04/29/2025 9:40 AM EDT [facility] Blood Venous blood specimen / Unknown Venipuncture / Unknown 04/29/2025 3:04 AM EDT 04/29/2025 3:19 AM EDT Narrative [facility] - 04/29/2025 9:40 AM EDT HA1C Interpretive Data: Diagnosis of Diabetes: Diabetic > or = 6.5% Pre-diabetic 5.7 to 6.4% Non-diabetic < or = 5.6% Glycemic Targets for Type I and Type II Diabetics: Non- Adults <7.0% Adults <6.0% Children and Adolescents <7.5% Source: [place] [employer]. Standards of medical care in diabetes,2017. Diabetes Care.2017:40 (suppl 1):S1-S135. luis De La Fuente CNC SERVICE ENGINEER, DNP LAB BLOOD ORDERABLES Fin al Result Performing Organization Address [facility] de Phone Number [facility] [address] [place] [address] * Phosphorus (04/29/2025 3:04 AM EDT) Phosphorus, Plasma 3.6 2.5 - 4.5 mg/dL 04/29/2025 3:55 AM EDT [facility] Blood Venous blood specimen / Unknown Venipuncture / Unknown 04/29/2025 3:04 AM EDT 04/29/2025 3:19 AM EDT k A Congregational CNC SERVICE ENGINEER, DNP LAB BLOOD ORDERABLES Fin al Result Performing Organization Address City/[facility] Co de Phone Number [facility] [address] [place] [address] * (ABNORMAL) Magnesium, Plasma (04/29/2025 3:04 AM EDT) Magnesium, Plasma 1.7(L) 1.9 - 2.4 mg/dL 04/29/2025 3:55 AM EDT [facility] Blood Venous blood specimen / Unknown Venipuncture / Unknown 04/29/2025 3:04 AM EDT 04/29/2025 3:19 AM EDT us yS De La Fuente CNC SERVICE ENGINEER, DNP LAB BLOOD ORDERABLES Fin al Result [facility] [address] [place] [address] * (ABNORMAL) Comprehensive metabolic panel (04/29/2025 3:04 AM EDT) Glucose, Plasma 219(H) 74 - 99 mg/dL 04/29/2025 3:55 AM EDT [facility] BUN, Plasma 9 7 - 21 mg/dL 04/29/2025 3:55 AM EDT [facility] Creatinine, Plasma 0.94 0.70 - 1.20 mg/dL 04/29/2025 3:55 AM EDT [facility] BUN/Creatinine Ratio 04/29/2025 3:55 AM EDT [facility] Sodium, Plasma 137 136 - 145 mmol/L 04/29/2025 3:55 AM EDT [facility] Potassium, Plasma 3.1(L) 3.6 - 4.9 mmol/L 04/29/2025 3:55 AM EDT [facility] Chloride, Plasma 92(L) 97 - 107 mmol/L 04/29/2025 3:55 AM EDT [facility] CO2, Plasma 38(H) 22 - 29 mmol/L 04/29/2025 3:55 AM EDT [facility] Anion Gap 7 6 - 16 mmol/L 04/29/2025 3:55 AM EDT [facility] Total Calcium, Plasma 8.6(L) 8.9 - 10.2 mg/dL 04/29/2025 3:55 AM EDT [facility] Total Protein 7.4 6.3 - 7.9 g/dL 04/29/2025 3:55 AM EDT [facility] Albumin, Plasma 3.3(L) 3.5 - 5.2 g/dL 04/29/2025 3:55 AM EDT [facility] AST, Plasma 18 10 - 50 U/L 04/29/2025 3:55 AM EDT [facility] ALT, Plasma 11 10 - 50 U/L 04/29/2025 3:55 AM EDT [facility] Alkaline Phosphatase, Plasma 55 40 - 115 U/L 04/29/2025 3:55 AM EDT [facility] Total Bilirubin, Plasma 0.8 0.2 - 1.1 mg/dL 04/29/2025 3:55 AM EDT [facility] eGFRcr 100.6 mL/min/1.7 3m*2 04/29/2025 3:55 AM EDT [facility] Comment:Reported eGFRcr in m L/min/1.73m2 is based the CKD-EPI 2020 equation that does not use a race coefficient. Blood Venous blood specimen / Unknown Venipuncture / Unknown 04/29/2025 3:04 AM EDT 04/29/2025 3:19 AM EDT Sy De La Fuente CNC SERVICE ENGINEER, DNP LAB BLOOD ORDERABLES Fin al Result [facility] [address] [place] [address] * (ABNORMAL) CBC and Differential (04/29/2025 3:04 AM EDT) WBC Count 6.68 3.70 - 10.30 10*3/uL LAB HEMATOLOGY METHOD 04/29/2025 3:16 AM EDT [facility] RBC Count 4.21(L) 4.60 - 6.10 10*6/uL LAB HEMATOLOGY METHOD 04/29/2025 3:16 AM EDT [facility] HGB 9.4(L) 13.7 - 17.5 g/dL LAB HEMATOLOGY METHOD 04/29/2025 3:16 AM EDT [facility] HCT 32.0(L) 40.0 - 51.0 % LAB HEMATOLOGY METHOD 04/29/2025 3:16 AM EDT [facility] Platelet Count 249 155 - 369 10*3/uL LAB HEMATOLOGY METHOD 04/29/2025 3:16 AM EDT [facility] MCV 76(L) 79 - 98 fL LAB HEMATOLOGY METHOD 04/29/2025 3:16 AM EDT [facility] MCH 22.3(L) 26.0 - 32.0 pg LAB HEMATOLOGY METHOD 04/29/2025 3:16 AM EDT [facility] MCHC 29.4(L) 30.7 - 35.5 g/dL LAB HEMATOLOGY METHOD 04/29/2025 3:16 AM EDT [facility] RDW 19.6(H) 11.5 - 14.5 % LAB HEMATOLOGY METHOD 04/29/2025 3:16 AM EDT [facility] MPV 8.4(L) 8.8 - 12.5 fL LAB HEMATOLOGY METHOD 04/29/2025 3:16 AM EDT [facility] nRBC 0.0 <=0.0 per 100 WBCs LAB HEMATOLOGY METHOD 04/29/2025 3:16 AM EDT [facility] Differential Type Automated LAB HEMATOLOGY METHOD 04/29/2025 3:16 AM EDT [facility] Neutrophils % 75 % LAB HEMATOLOGY METHOD 04/29/2025 3:16 AM EDT [facility] Lymphocytes % 11 % LAB HEMATOLOGY METHOD 04/29/2025 3:16 AM EDT [facility] Monocytes % 9 % LAB HEMATOLOGY METHOD 04/29/2025 3:16 AM EDT [facility] Eosinophils % 4 % LAB HEMATOLOGY METHOD 04/29/2025 3:16 AM EDT [facility] Basophils % 0 % LAB HEMATOLOGY METHOD 04/29/2025 3:16 AM EDT [facility] [facility] Immature Granulocytes % 1 % LAB HEMATOLOGY METHOD 04/29/2025 3:16 AM EDT [facility] Neutrophils Absolute 5.01 1.60 - 6.10 10*3/uL LAB HEMATOLOGY METHOD 04/29/2025 3:16 AM EDT [facility] Lymphocytes Absolute 0.75(L) 1.20 - 3.90 10*3/uL LAB HEMATOLOGY METHOD 04/29/2025 3:16 AM EDT [facility] Monocytes Absolute 0.59 0.30 - 0.90 10*3/uL LAB HEMATOLOGY METHOD 04/29/2025 3:16 AM EDT [facility] Eosinophils Absolute 0.26 0.00 - 0.50 10*3/uL LAB HEMATOLOGY METHOD 04/29/2025 3:16 AM EDT [facility] Basophils Absolute 0.03 0.00 - 0.10 10*3/uL LAB HEMATOLOGY METHOD 04/29/2025 3:16 AM EDT [facility] Immature Granulocytes Absolute 0.04 0.00 - 0.06 10*3/uL LAB HEMATOLOGY METHOD 04/29/2025 3:16 AM EDT [facility] Blood Venous blood specimen / Unknown Venipuncture / Unknown 04/29/2025 3:04 AM EDT 04/29/2025 3:13 AM EDT Narrative [facility] - 04/29/2025 3:16 AM EDT Therapeutic decision making should be based on absolute values, rather than percentages. us Sy De La Fuente CNC SERVICE ENGINEER, DNP LAB BLOOD ORDERABLES Fin al Result [facility] [address] [place] [address] * (ABNORMAL) POCT glucose meter (04/28/2025 9:06 [...] 04/28/2025 9:08 PM EDT [facility] Instructional Services Specialist ID Frankie Poole 04/28/2025 9:08 PM EDT [facility] Device ID [id number] 04/28/2025 9:08 PM EDT [facility] Specimen Type POC Capillary 04/28/2025 9:08 PM EDT [facility] Blood Capillary blood specimen / Unknown 04/28/2025 9:06 PM EDT 04/28/2025 9:08 PM EDT Marjorie Myers MD LAB POINT OF CARE TE ST DOCKED DEVICE UNSOLICITED RESULTS Final Result [facility] [address] [place] [address] * (ABNORMAL) POCT glucose meter (04/28/2025 5:34 [...] 04/28/2025 5:38 PM EDT [facility] Instructional Services Specialist ID Ailyn Finch 5:38 PM EDT [facility] Device ID [id number] 04/28/2025 5:38 PM EDT [facility] Specimen Type POC Capillary 04/28/2025 5:38 PM EDT [facility] Blood Capillary blood specimen / Unknown 04/28/2025 5:34 PM EDT 04/28/2025 5:38 PM EDT Marjorie Myers MD LAB POINT OF CARE TE ST DOCKED DEVICE UNSOLICITED RESULTS Final Result [facility] [address] [place] [address] * (ABNORMAL) POCT glucose meter (04/28/2025 3:51 [...] Comment 04/28/2025 3:54 PM EDT [facility] Instructional Services Specialist ID Ailyn Finch 3:54 PM EDT [facility] Device ID [id number] 04/28/2025 3:54 PM EDT [facility] Specimen Type POC Capillary 04/28/2025 3:54 PM EDT [facility] Blood Capillary blood specimen / Unknown 04/28/2025 3:51 PM EDT 04/28/2025 3:54 PM EDT us Marjorie Myers MD LAB POINT OF CARE TE ST DOCKED DEVICE UNSOLICITED RESULTS Final Result Performing Organization Address City/State/[facility] de Phone Number [facility] [address] [place] [address] * VAS Ankle Brachial Index - GABBI [...] are demonstrated at the levels of the BED SETTER and DPA. Segmental pressures are within normal limits with a BED SETTER GABBI of 1.1 (172 mmHg) and a DPA GABBI of 1.0 (149 mmHg). Digit pressures are of 122 mmHg. Left: Multiphasic waveforms are demonstrated at the levels of the BED SETTER and DPA. Segmental pressures are within normal limits with a BED SETTER GABBI of 1.1 (164 mmHg) and a DPA GABBI of 1.0 (153 mmHg). Digit pressures are of 151 mmHg. Procedure Note Chris Schaefer MD - 04/28/2025 CLINICAL INDICATION: Diabetic foot ulcer TECHNIQUE: Non-invasive, continuous wave Doppler exam with segmental pressures andspectral analysis of the lower extremity was performed. COMPARISON: None. FINDINGS: Right: Multiphasic waveforms are demonstrated at the levels of the BED SETTER andDPA. Segmental pressures are within normal limits with a BED SETTER GABBI of 1.1(172 mmHg) and a DPA GABBI of 1.0 (149 mmHg). Digit pressures are of 122mmHg. Left: Multiphasic waveforms are demonstrated at the levels of the BED SETTER andDPA. Segmental pressures are within normal limits with a BED SETTER GABBI of 1.1(164 mmHg) and a DPA [...] 4:14 PM us Sy De La Fuente CNC SERVICE ENGINEER, DNP CV VASCULAR PROCEDURES F inal Result * Multi Drug Resistance Test (04/28/2025 1:44 PM EDT) [facility] Culture No Multi Drug Resistant Organisms Isolated 04/29/2025 2:32 PM EDT [facility] Swab (Nares and Saba Rectal) Non-blood Collection / Unknown 04/28/2025 1:44 PM EDT 04/28/2025 2:15 PM EDT Narrative [facility] - 04/29/2025 2:32 PM EDT This test was developed and its performance characteristics determined by the [facility]. Although the media is FDA-approved, it is not FDA-approved for all specimen types submitted. The FDA has determined that such clearance or approval is not necessary. This test is used for surveillance purposes. It should not be regarded as investigational or for research. The [facility] is certified under the Clinical Laboratory Improvement Amendments of 1988 (CLIA-88) as qualified to perform high complexity clinical laboratory testing. Sy De La Fuente APRN, [facility] MICROBIOLOGY - [facility] ORDERABLES Final Result [facility] [address] [place] [address] * (ABNORMAL) POCT glucose meter (04/28/2025 12:52 PM EDT) [facility] [...] 04/28/2025 12:56 PM EDT [facility] Instructional Services Specialist ID Ailyn Finch 12:56 PM EDT [facility] Device ID [id number] 04/28/2025 12:56 PM EDT [facility] Specimen Type POC Capillary 04/28/2025 12:56 PM EDT [facility] Blood Capillary blood specimen / Unknown 04/28/2025 12:52 PM EDT 04/28/2025 12:56 PM EDT Marjorie Myers MD LAB POINT OF CARE TE ST DOCKED DEVICE UNSOLICITED RESULTS Final Result Performing Organization Address City/[facility] Co de Phone Number [facility] [address] [place] [address] * (ABNORMAL) POCT glucose meter (04/28/2025 11:39 [...] Comment 04/28/2025 11:44 AM EDT [facility] Instructional Services Specialist ID Ailyn Finch 11:44 AM EDT [facility] Device ID [id number] 04/28/2025 11:44 AM EDT [facility] Specimen Type POC Capillary 04/28/2025 11:44 AM EDT [facility] Blood Capillary blood specimen / Unknown 04/28/2025 11:39 AM EDT 04/28/2025 11:44 AM EDT Marjorie Myers MD LAB POINT OF CARE TE ST DOCKED DEVICE UNSOLICITED RESULTS Final Result Performing Organization Address City/[facility]/ZIP Co de Phone Number [facility] [address] [place] [address] * Lavender Top (04/28/2025 8:13 AM EDT) Pathologist [facility] Extra Hold for add-ons 04/28/2025 11:01 AM EDT [facility] Comment:Auto resulted. Blood Venous blood specimen / Unknown 04/28/2025 8:13 AM EDT 04/28/2025 8:19 AM EDT Marjorie Myers MD LAB BLOOD ORDERABLES Final Resul t [facility] [address] [place] [address] * Light Green Top (04/28/2025 8:13 AM EDT) Extra Hold for add-ons 04/28/2025 11:01 AM EDT [facility] Comment:Auto resulted. Blood Venous blood specimen / Unknown 04/28/2025 8:13 AM EDT 04/28/2025 8:19 AM EDT us Marjorie Myers MD LAB BLOOD ORDERABLES Final Resul t Performing Organization Address City/[facility]/ZIP Co de Phone Number [facility] [address] [place] [address] * APTT (04/28/2025 8:13 AM EDT) aPTT 32 25 - 35 sec 04/28/2025 8:33 AM EDT [facility] Blood Venous blood specimen / Unknown Venipuncture / Unknown 04/28/2025 8:13 AM EDT 04/28/2025 8:18 AM EDT Sy De La Fuente CNC SERVICE ENGINEER, DNP LAB BLOOD ORDERABLES Fin al Result Performing Organization Address City/[facility]/ZIP Co de Phone Number [facility] [address] [place] [address] * (ABNORMAL) PT/INR (04/28/2025 8:13 AM EDT) Prothrombin Time 17.5(H) 12.0 - 14.3 sec 04/28/2025 8:33 AM EDT [facility] INR 1.4(H) 0.9 - 1.1 04/28/2025 8:33 AM EDT [facility] Blood Venous blood specimen / Unknown Venipuncture / Unknown 04/28/2025 8:13 AM EDT 04/28/2025 8:18 AM EDT Narrative [facility] - 04/28/2025 8:33 AM EDT OPTIMAL INR RANGES FOR PATIENT ON ORAL ANTICOAGULANT THERAPY Prevention of venous thromboembolism INR 2.0 to 3.0 In patients with heart disease: Atrial fibrillation INR 2.0 to 3.0 Valvular heart disease INR 2.0 to 3.0 Tissue heart valves INR 2.0 to 3.0 Mechanical prosthetic valves INR 2.5 to 3.5 Prevention of recurrent [place] INR 2.5 to 3.5 Sy De La Fuente APRN, DENISE LAB BLOOD ORDERABLES Fin al Result Performing Organization Address City/[facility]/ZIP Co de Phone Number [facility] [address] [place] [address] * ECG Adult (04/28/2025 7:20 AM EDT) EKG DIAGNOSIS CLASS Abnormal MUSE ECG Ventricular Rate 90 BPM MUSE ECG Atrial Rate 90 BPM MUSE ECG OK Interval 206 ms MUSE ECG QRSD Interval 146 ms MUSE ECG QT Interval 450 ms MUSE ECG QTC Interval 550 ms MUSE ECG P Pollock 69 degrees MUSE ECG R Pollock -32 degrees MUSE ECG T Wave Pollock 35 degrees MUSE ECG Diagnosis Baseline Artifact [...] - 99 mg/dL 04/28/2025 7:21 AM EDT [facility] Comment:Accuracy of a glucos e result [...] Comment 04/28/2025 7:21 AM EDT [facility] Instructional Services Specialist ID Ailyn Finch 7:21 AM EDT [facility] Device ID [id number] 04/28/2025 7:21 AM EDT [facility] Specimen Type POC Capillary 04/28/2025 7:21 AM EDT [facility] Blood Capillary blood specimen / Unknown 04/28/2025 7:17 AM EDT 04/28/2025 7:21 AM EDT us Greg Lee MD LAB POINT OF CARE TE ST DOCKED DEVICE UNSOLICITED RESULTS Final Result Performing Organization Address City/State/[facility] Co de Phone Number [facility] [address] [place] [address] * CT Foot Right w IV Contrast [...] TEST ORDERABLES Final Result Performing Organization Address [facility]/ZIP Co de Phone Number BLOOD BANK [address] * Blood Culture (Aerobic/Anaerobet Set) (04/27/2025 10:16 PM EDT) Culture No growth at day 5 05/03/2025 12:01 AM EDT [facility] Blood Venous blood specimen / Unknown Venipuncture / Unknown 04/27/2025 10:16 PM EDT 04/27/2025 10:53 PM EDT us Jessa Law MD LAB MICROBIOLOGY - [facility] Final Result Performing Organization Address City/[facility]/ZIP Co de Phone Number [facility] [address] [place] [address] * Blood Culture (Aerobic/Anaerobet Set) (04/27/2025 10:16 PM EDT) Culture No growth at day 5 05/03/2025 12:01 AM EDT [facility] Blood Venous blood specimen / Unknown Venipuncture / Unknown 04/27/2025 10:16 PM EDT 04/27/2025 10:53 PM EDT Jessa Law MD LAB MICROBIOLOGY - [facility] Final Result [facility] [address] [place] [address] * (ABNORMAL) Blood gas, venous (04/27/2025 10:16 PM EDT) pH, Venous 7.47(H) 7.32 - 7.43 LAB HEMATOLOGY METHOD 04/27/2025 10:21 PM EDT [facility] pCO2, Venous 50 40 - 55 mmHg LAB HEMATOLOGY METHOD 04/27/2025 10:21 PM EDT [facility] pO2, Venous 30 25 - 40 mmHg LAB HEMATOLOGY METHOD 04/27/2025 10:21 PM EDT [facility] SO2, Measured, Venous 52(L) 65 - 80 % LAB HEMATOLOGY METHOD 04/27/2025 10:21 PM EDT [facility] Base Excess, Venous 11.6(H) -2.0 - 3.0 mmol/L LAB HEMATOLOGY METHOD 04/27/2025 10:21 PM EDT [facility] Bicarbonate, Calculated, Venous 37(H) 22 - 26 mmol/L LAB HEMATOLOGY METHOD 04/27/2025 10:21 PM EDT [facility] Hematocrit, Whole Blood 30.1(L) 40.0 - 51.0 % LAB HEMATOLOGY METHOD 04/27/2025 10:21 PM EDT [facility] Sodium, Whole Blood 136 136 - 145 mmol/L LAB HEMATOLOGY METHOD 04/27/2025 10:21 PM EDT [facility] Potassium, Whole Blood 2.8(L) 3.6 - 4.9 mmol/L LAB HEMATOLOGY METHOD 04/27/2025 10:21 PM EDT [facility] Chloride, Whole Blood 88(L) 97 - 107 mmol/L LAB HEMATOLOGY METHOD 04/27/2025 10:21 PM EDT [facility] Glucose, Whole Blood 131(H) 74 - 99 mg/dL LAB HEMATOLOGY METHOD 04/27/2025 10:21 PM EDT [facility] Lactate, Venous, Whole Blood 2.0 0.5 - 2.2 mmol/L LAB HEMATOLOGY METHOD 04/27/2025 10:21 PM EDT [facility] Ionized Calcium, Whole Blood 4.2(L) 4.6 - 5.1 mg/dL LAB HEMATOLOGY METHOD 04/27/2025 10:21 PM EDT [facility] Blood Venous blood specimen / Unknown Venipuncture / Unknown 04/27/2025 10:16 PM EDT 04/27/2025 10:20 PM EDT us Jessa Law MD LAB BLOOD ORDERABLES Final Resu lt Performing Organization Address City/[facility]/ZIP Co de Phone Number [facility] [address] [place] [address] * Creatine Kinase, Total, Plasma (04/27/2025 9:37 PM EDT) Creatine Kinase, Plasma 71 49 - 320 U/L 04/28/2025 8:36 AM EDT [facility] Blood Venous blood specimen / Unknown Venipuncture / Unknown 04/27/2025 9:37 PM EDT 04/27/2025 9:40 PM EDT us Sy De La Fuente CNC SERVICE ENGINEER, DNP LAB BLOOD ORDERABLES Fin al Result [facility] [address] [place] [address] * (ABNORMAL) Procalcitonin (04/27/2025 9:37 PM EDT) Procalcitonin, Plasma 0.11(H) <0.09 ng/mL 04/28/2025 8:36 AM EDT [facility] Blood Venous blood specimen / Unknown Venipuncture / Unknown 04/27/2025 9:37 PM EDT 04/27/2025 9:40 PM EDT Narrative [facility] - 04/28/2025 8:36 AM [...] predict 28 day mortality risk. Please consult [email or web address]-via-[email or web address] for more information. Test performed at [facility]. us Sy De La Fuente APRN, DNP LAB BLOOD ORDERABLES Fin al Result Performing Organization Address City/[facility]/ZIP Co de Phone Number [facility] [address] [place] [address] * (ABNORMAL) Sed rate, automated (04/27/2025 9:37 PM EDT) Sedimentation Rate >111(H) <15 mm/hr 2024 11:10 PM EDT [facility] Blood Venous blood specimen / Unknown Venipuncture / Unknown 04/27/2025 9:37 PM EDT 04/27/2025 9:40 PM EDT us Jessa Law MD LAB BLOOD ORDERABLES Final Resu lt [facility] [address] [place] [address] * (ABNORMAL) Magnesium (04/27/2025 9:37 PM EDT) Magnesium, Plasma 1.2(L) 1.9 - 2.4 mg/dL 04/27/2025 10:11 PM EDT [facility] Blood Venous blood specimen / Unknown Venipuncture / Unknown 04/27/2025 9:37 PM EDT 04/27/2025 9:40 PM EDT Jessa Law MD LAB BLOOD ORDERABLES Final Resu lt Performing Organization Address City/[facility] Co de Phone Number [facility] [address] [place] [address] * Beta-Hydroxybutyric Acid (04/27/2025 9:37 PM EDT) Beta-Hydroxybut yric Acid, Plasma 0.23 <=0.27 mmol/L 04/27/2025 10:56 PM EDT [facility] Blood Venous blood specimen / Unknown Venipuncture / Unknown 04/27/2025 9:37 PM EDT 04/27/2025 9:40 PM EDT Jessa Law MD LAB BLOOD ORDERABLES Final Resu lt Performing Organization Address [facility] Co de Phone Number [facility] [address] [place] [address] * ED HIV 1/2 Antibody/Antigen Screen w/Reflex to HIV 1/2 Differentiation (04/27/2025 9:37 PM EDT) Pathologist [facility] HIV 1 & 2 Antibody/Antigen Screen Non Reactive Non Reactive 04/27/2025 10:41 PM EDT [facility] Comment:Screening for HIV 1 & 2 antibodies, and P24 antigen is NONREACTIVE. No confirmatory testing is required. Blood Venous blood specimen / Unknown Venipuncture / Unknown 04/27/2025 9:37 PM EDT 04/27/2025 10:00 PM EDT Madhu Ritchie MD LAB BLOOD ORDERABLES Final Res ult Performing Organization Address [facility] Co de Phone Number [facility] [address] [place] [address] * Hepatitis C Antibody - ED (04/27/2025 9:37 PM EDT) Hepatitis C Antibody Negative Negative 04/27/2025 10:41 PM EDT [facility] Blood Venous blood specimen / Unknown Venipuncture / Unknown 04/27/2025 9:37 PM EDT 04/27/2025 10:00 PM EDT Madhu Ritchie MD LAB BLOOD ORDERABLES Final Res ult Performing Organization Address [facility] Co de Phone Number [facility] [address] [place] [address] * (ABNORMAL) C-reactive protein (04/27/2025 9:37 PM EDT) CRP, Plasma 82.6(H) <=8.0 mg/L 04/27/2025 10:03 PM EDT [facility] Blood Venous blood specimen / Unknown Venipuncture / Unknown 04/27/2025 9:37 PM EDT 04/27/2025 9:40 PM EDT Narrative [facility] - 04/27/2025 10:03 PM EDT This CRP test is appropriate for assessment of infection, systemic inflammation and/or tissue injury. To assess cardiovascular disease risk order high sensitivity CRP (CRPH). Madhu Ritchie MD LAB BLOOD ORDERABLES Final Res ult Performing Organization Address [facility] de Phone Number [facility] [address] [place] [address] * (ABNORMAL) CBC w/diff (04/27/2025 9:37 PM EDT) WBC Count 12.00(H) 3.70 - 10.30 10*3/uL LAB HEMATOLOGY METHOD 04/27/2025 9:43 PM EDT [facility] RBC Count 4.48(L) 4.60 - 6.10 10*6/uL LAB HEMATOLOGY METHOD 04/27/2025 9:43 PM EDT [facility] HGB 10.4(L) 13.7 - 17.5 g/dL LAB HEMATOLOGY METHOD 04/27/2025 9:43 PM EDT [facility] HCT 33.3(L) 40.0 - 51.0 % LAB HEMATOLOGY METHOD 04/27/2025 9:43 PM EDT [facility] Platelet Count 282 155 - 369 10*3/uL LAB HEMATOLOGY METHOD 04/27/2025 9:43 PM EDT [facility] MCV 74(L) 79 - 98 fL LAB HEMATOLOGY METHOD 04/27/2025 9:43 PM EDT [facility] MCH 23.2(L) 26.0 - 32.0 pg LAB HEMATOLOGY METHOD 04/27/2025 9:43 PM EDT [facility] MCHC 31.2 30.7 - 35.5 g/dL LAB HEMATOLOGY METHOD 04/27/2025 9:43 PM EDT [facility] RDW 19.4(H) 11.5 - 14.5 % LAB HEMATOLOGY METHOD 04/27/2025 9:43 PM EDT [facility] MPV 8.3(L) 8.8 - 12.5 fL LAB HEMATOLOGY METHOD 04/27/2025 9:43 PM EDT [facility] nRBC 0.0 <=0.0 per 100 WBCs LAB HEMATOLOGY METHOD 04/27/2025 9:43 PM EDT [facility] Differential Type Automated LAB HEMATOLOGY METHOD 04/27/2025 9:43 PM EDT [facility] Neutrophils % 82 % LAB HEMATOLOGY METHOD 04/27/2025 9:43 PM EDT [facility] Lymphocytes % 9 % LAB HEMATOLOGY METHOD 04/27/2025 9:43 PM EDT [facility] Monocytes % 7 % LAB HEMATOLOGY METHOD 04/27/2025 9:43 PM EDT [facility] Eosinophils % 2 % LAB HEMATOLOGY METHOD 04/27/2025 9:43 PM EDT [facility] Basophils % 0 % LAB HEMATOLOGY METHOD 04/27/2025 9:43 PM EDT [facility] Immature Granulocytes % 0 % LAB HEMATOLOGY METHOD 04/27/2025 9:43 PM EDT [facility] Neutrophils Absolute 9.73(H) 1.60 - 6.10 10*3/uL LAB HEMATOLOGY METHOD 04/27/2025 9:43 PM EDT [facility] Lymphocytes Absolute 1.11(L) 1.20 - 3.90 10*3/uL LAB HEMATOLOGY METHOD 04/27/2025 9:43 PM EDT [facility] Monocytes Absolute 0.80 0.30 - 0.90 10*3/uL LAB HEMATOLOGY METHOD 04/27/2025 9:43 PM EDT [facility] Eosinophils Absolute 0.29 0.00 - 0.50 10*3/uL LAB HEMATOLOGY METHOD 04/27/2025 9:43 PM EDT [facility] Basophils Absolute 0.03 0.00 - 0.10 10*3/uL LAB HEMATOLOGY METHOD 04/27/2025 9:43 PM EDT [facility] Immature Granulocytes Absolute 0.04 0.00 - 0.06 10*3/uL LAB HEMATOLOGY METHOD 04/27/2025 9:43 PM EDT [facility] Blood Venous blood specimen / Unknown Venipuncture / Unknown 04/27/2025 9:37 PM EDT 04/27/2025 9:40 PM EDT Narrative [facility] - 04/27/2025 9:43 PM EDT Therapeutic decision making should be based on absolute values, rather than percentages. us Madhu Ritchie MD LAB BLOOD ORDERABLES Final Res ult [facility] [address] [place] [address] * (ABNORMAL) BMP (04/27/2025 9:37 PM EDT) Glucose, Plasma 135(H) 74 - 99 mg/dL 04/27/2025 10:03 PM EDT [facility] BUN, Plasma 8 7 - 21 mg/dL 04/27/2025 10:03 PM EDT [facility] Creatinine, Plasma 0.84 0.70 - 1.20 mg/dL 04/27/2025 10:03 PM EDT [facility] BUN/Creatinine Ratio 10 04/27/2025 10:03 PM EDT [facility] Sodium, Plasma 135(L) 136 - 145 mmol/L 04/27/2025 10:03 PM EDT [facility] Potassium, Plasma 3.3(L) 3.6 - 4.9 mmol/L 04/27/2025 10:03 PM EDT [facility] Chloride, Plasma 90(L) 97 - 107 mmol/L 04/27/2025 10:03 PM EDT [facility] CO2, Plasma 29 22 - 29 mmol/L 04/27/2025 10:03 PM EDT [facility] Anion Gap 16 6 - 16 mmol/L 04/27/2025 10:03 PM EDT [facility] Total Calcium, Plasma 9.0 8.9 - 10.2 mg/dL 04/27/2025 10:03 PM EDT [facility] eGFRcr 108.2 mL/min/1.7 3m*2 04/27/2025 10:03 PM EDT [facility] Comment:Reported eGFRcr in m L/min/1.73m2 is based the CKD-EPI 2020 equation that does not use a race coefficient. Blood Venous blood specimen / Unknown Venipuncture / Unknown 04/27/2025 9:37 PM EDT 04/27/2025 9:40 PM EDT us Madhu Ritchie MD LAB BLOOD ORDERABLES Final Res ult [facility] [address] [place] [address] documented in this encounter Visit Diagnoses Diagnosis Other chronic osteomyelitis of right foot ([facility]) Diabetic foot ulcer with osteomyelitis Type [...] units/mL, First dose (after last reorder) on [place] 05/14/25 at 1800 Given 05/17/2025 5:32 PM [...] 0.25 mg Left Lower Abdomen sodium chloride (Ronda) 0.65 % nasal spray 1 spray 1 spray, Each Nostril, As needed, Starting on 05/06/25 at 1208, Until Thu05/09/25 at 0821, Routine, congestion Given 05/07/2025 3:52 AM EDT 1 spray sodium chloride (Ronda) 0.65 % nasal spray 1 spray 1 [...] Deepthi Herman RN)1755 (Given - Provider: Deepthi Herman RN) 0907 (Given - Provider: Deepthi Herman, LOLA)1216 (Given - Provider: Deepthi Herman, LOLA)1729 (Given - Provider: Deepthi Herman RN) 0853 [...] 0903 (Given - Provider: Deepthi Herman RN) 09 (Given - Provider: Deepthi Herman RN) 09 (Given - Provider: Kylee Gonzalez, LOLA - Comment: [facility]) insulin regular (HumuLIN R U-500) 500 [...] Provider: Kylee Gonzalez, LOLA - Comment: [facility]) insulin regular (HumuLIN R U-500) [...] RN) 09 (Given - Provider: Deepthi Herman, LOLA)2003 (Given - Provider: Ivan Slaughter RN) 1107 [...] - Provider: Kylee Gonzalez RN - Comment: [facility] care) perflutren lipid microspheres (Definity) injection [...] Herman RN) 0630 (Canceled Entry - Provider: Iavn Slaughter RN)1817 (Given - Provider: Deepthi Herman, [...] 0854 (Given - Provider: Deepthi Herman, RN) 09 (Given - Provider: Deepthi Herman, RN) 09 [...] Deepthi Herman RN)1424 (Given - Provider: Deepthi Herman, RN)2228 (Given - Provider: Ivan Slaughter, RN) 0907 (Given - Provider: Kylee Gonzalez, LOLA) sodium chloride (Ronda) 0.65 % nasal spray 1 spray 1 [...] documented as of this encounter Care Teams Administrative Services Assistant Relationship Specialty Start Date End Date Malcolm Hayward APRN 9 [facility] [place] [address] PCP - General 09/21/23 documented as of this encounter
--- OUTSIDE RECORDS SUMMARY | 2025-05-01 06:28 | XMS_ITS | Encounter Summary ---
Author Organization Healthcare Address [address] [id number] Care Team Providers Care Wrap Yarn Sorter Name Role Phone MainorMalcolm Rodrick DIANA Primary Care Provider [phone] Reason for Visit * Auth/Cert (Routine) Specialty Diagnoses / Procedures Referred By Anish t Referred To Contact Diagnoses Diabetic foot ulcer with osteomyelitis Greg Lee MD [address] [place] [phone] Phone: tel: fax: [facility] [address] [place] [phone] Phone: tel: Referral ID Status Reason Start Date Expiration Date Visits Re quested Visits Authorized [id number] 1 1 Encounter Details Date Type Department Care Team (Late st Contact Info) Description 05/01/2025 7:28 AM EDT Anesthesia Event [facility] [address] [place] [phone] Gilberto Rivera MD [address] [place] [phone] Hermilo Qiu MD [address] [place] [address] Anesthesia Record Procedure Summary Procedure Name Responsible Anesthesiologist Anesthesia Start Time Anesthesia Stop Time AMPUTATION,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 4th (Right: Toes) Gilberto Rivera MD 05/01/25 0728 05/01/25 0915 Events Date Time Event Comment 05/01/2025 0728 An Start The patient was reevaluated immediately before sedation and remains eligible for anesthesia plan. 0730 An Start Data 0730 In Room 0739 An Induction The patient was reevaluated immediately before moderate or deep sedation use and before anesthesia induction. 0743 Anesthesia Ready 0802 Proc Start 0901 Proc Fin 0905 an stop data 0909 Out of Room 0915 Handoff to Receiving I compl eted my handoff to the receiving clinician during which we: 1. Identified the patient 2. Identified the responsible provider 3. Reviewed the pertinent medical history 4. Discussed the surgical course 5. Reviewed intra-op anesthesia management and issues during anesthesia 6. Set expectations for post-procedure period 7. Allowed opportunity for questions and acknowledgement of understanding. 0915 An Stop Meds Name Total fentaNYL (Sublimaze) injection 50 mcg/mL 100 mcg midazolam (Versed) injection 1 mg/mL 2 m g 0.5% ropivacaine 45 mL dexmedetomidine (Precedex) infusion in N aCl 4 mcg/mL 40 mcg lactated Ringer's infusion 0 mL * Agents Name O2 * Blood No blood administrations on file. Lines, Drains, and Airways Type Details Placement Removal Urethral Catheter Placement Date: 12/12/24; Removal Reason: Per order 12/12/24 0000 by Cyndi Maynard RN Wound 04/30/25; 1040; Y; Groin 04/30/25 1040 by Radha Saavedra RN Wound 04/30/25; 1045; Coccyx 04/30/25 1045 by Radha Saavedra RN Wound 05/01/25; 0805; N; Y es; Surgical; Toe (Comment which one); Anterior, Right 05/01/25 0805 by Kelli Nicole RN Wound 12/12/24; Y; Diabeti c Ulc; Foot; Right, Other (Comment) (bottom); round pink and red wound bed; 05/07/25; 0800; Converged 12/12/24 0000 by Cyndi Maynard RN 05/07/25 0800 by Iveth Boss RN Wound 12/12/24; Y; Diabeti c Ulc (abrasion); Heel; Left; 05/07/25; 0800; Healed 12/12/24 0000 by Cyndi Maynard RN 05/07/25 0800 by Iveth Boss RN PICC Single Lumen Placement Date: 04/25/25; Existing LDA Placed by: Outside Facility; Hand Hygiene Completed: Yes; Cath Time Out Checklist Completed: Yes; Orientation: Left; Patient Tolerance: Tolerated well; Removal Date: 05/18/25; Removal Time: 824; Removal Reason: Discharge; Removal Cath Length: 18 cm 04/25/25 0000 by Stella Daniels RN 05/18/25 0825 by Kylee Gonzalez RN documented in this encounter Social History Tobacco Use Types Packs/Day Years [...] time in the past 12 m [facility] were you homeless or living in a [place] facility (including now)? No 04/28/2025 [facility] Utilities Answer Date Recorded In the past 12 months has e [employer], gas, oil, or water company threatened to [...] Date of Assessment Author No Risk Indicated 05/01/2025 11:00 AM EDT Rocío Latham RN * Question Answer Date of Assessment Author 1. Wish to be (Past 1 Month) No 05/01/2025 11:00 AM EDT Roopa Crandall RN 2. Non-Specific Active Suicidal Thoughts (Past 1 Month) No 05/01/2025 11:00 AM EDT Roopa Crandall RN 6. Suicidal Behavior (Lifetime) No 05/01/2025 11:00 AM EDT Roopa Crandall RN documented as of this encounter Miscellaneous Notes * Anesthesia Postprocedure Evaluation - Og Shah CRNA - 05/01/2025 9:15 AM EDT Patient: Gonzalo Russell Anesthesia Type: MAC Vitals Value Taken Time BP 117/80 05/01/25 09:45 Temp 36.8 ??C (98.2 ??F) 05/01/25 09:45 Pulse 77 05/01/25 09:45 Resp 12 05/01/25 09:45 SpO2 97 % 05/01/25 09:45 Anesthesia Post Evaluation Patient location during evaluation: PACU Patient participation: complete - patient participated Level of consciousness: awake Pain management: adequate (pain score 0-3) Airway patency: natural airway Cardiovascular status: acceptable and hemodynamically stable Respiratory status: acceptable and blow-by oxygen Hydration status: acceptable Nausea/Vomiting: No No notable events documented. * Anesthesia Procedure Notes - Koffi Naranjo MD - 05/01/2025 7:24 AM EDT Associated Order(s): Peripheral Block Peripheral Block Patient location during procedure: OR Start time: 05/01/2025 7:00 AM End time: 05/01/2025 7:18 AM Reason for block: post-op pain management Block is at surgeon's request Staffing Performed: Resident Anesthesiologist: Holly Spicer MD Resident: Koffi Naranjo MD Preanesthetic Checklist Completed: patient identified, IV checked, site marked, risks and benefits discussed, surgical consent, monitors and equipment checked, pre-op evaluation and timeout performed Peripheral Block Patient position: supine Prep: ChloraPrep Patient monitoring: continuous pulse ox, heart rate and groundwater monitoring technician Block type: adductor canal and popliteal Laterality: right Injection technique: single-shot Guidance: ultrasound guided Infiltration strength: 2 % Dose: 10 mL Ultrasound used for needle placement AND ultrasound image retained Needle Needle type: pencil-tip Needle gauge: 20 G. Needle localization: anatomical landmarks and ultrasound guidance Medications Administered: 0.5% ropivacaine - Injection 45 mL - 05/01/2025 7:00:00 AM Assessment Injection assessment: negative aspiration for heme, local visualized surrounding nerve on ultrasound and incremental injection Paresthesia pain: none Heart rate change: no Slow fractionated injection: yes Additional Notes 15 ml 0.5% ropivacaine via right adductor, 30 ml 0.5% ropivacaine via right popliteal. No complications. Cosigned by Holly Spicer MD at 05/01/2025 8:00 AM EDT Associated attestation - Holly Spicer MD - 05/01/2025 8:00 AM EDT I was present during all critical and mario portions of the procedure(s) and immediately available [facility] services the entire duration. See resident note for details. * Anesthesia Preprocedure Evaluation - Gilberto Rivera MD - 05/01/2025 7:04 AM EDT Anesthesiologist: Gilberto Rivera MD SALES SECRETARY: Alen Mena CRNA, DENISE Patient: Gonzalo Russell HPI Gonzalo Russell is a 49 y.o. male with body mass index is 76.9 kg/m??. who presents with Diabetic foot ulcer, now for AMPUTATION,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 4th (Right) Procedure Information Date/Time: 05/01/25 07 Procedure: AMPUTATION,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 4th (Right: Toes) Location: [facility] Surgeons: Mary Vicente MD Past Medical History: Diagnosis Date Acute kidney injury 05/19/2024 Alcohol abuse, in remission Alcohol abuse, in remission Anxiety disorder, unspecified Anxiety Arthritis Atrial fibrillation (CMS/HCC) CAP (community acquired pneumonia) 05/19/2024 Cellulitis 05/19/2024 CHF (congestive heart failure) COPD (chronic obstructive pulmonary disease) Depression GERD (gastroesophageal reflux disease) Hyperlipidemia Hypertension Left lower lobe pneumonia 05/19/2024 Sleep apnea Sleep apnea, obstructive Type 2 diabetes mellitus Surgical History[1] Vitals: 05/01/25 0330 BP: 121/76 Pulse: 58 Resp: Temp: 36.8 ??C (98.3 ??F) SpO2: 96% Relevant Problems Anesthesia (+) QUINN (obstructive sleep apnea) Cardio (+) Atrial fibrillation with rapid ventricular response (CMS/HCC) (+) CHF (congestive heart failure) (+) Dyspnea (+) Hypertension (+) Peripheral edema Endo (+) Type 2 diabetes GI (+) Morbid obesity (CMS/HCC) Neuro/Psych (+) S/P gastric sleeve procedure Pulmonary (+) Allergic rhinitis (+) COPD (chronic obstructive pulmonary disease) Other (+) Pyogenic inflammation of bone ALLERGIES Allergies[2] NPO STATUS Date of Last Liquid: 05/01/25 Time of Last Liquid: 0500 Date of Last Solid: 04/30/25 Time of Last Solid: 2200 Past Medical History[3] AIRWAY HISTORY Airway Detailed Review Displaying the 20 most recent records No records found. MEDICATIONS Outpatient Current Outpatient Medications Medication Instructions albuterol 108 (90 Base) MCG/ACT inhaler 2 puffs, Every 4-6 hours prn atorvastatin (LIPITOR) 40 mg, Nightly bisoprolol (ZEBETA) 5 mg, 2 times daily bumetanide (BUMEX) 4 mg, 3 times daily cariprazine (VRAYLAR) 3 mg, Daily dilTIAZem CD (CARDIZEM CD) 120 mg, Daily gabapentin (NEURONTIN) 600 mg, 3 times daily HYDROcodone-acetaminophen (Fertile) 10-325 MG tablet 1 tablet, Every 6 hours PRN Insulin Pen Needle (Pen Lu[place]) 31G X 5 MM [facility] [place] TO INJECT INSULIN 3 TIMES PER [...] Nightly venlafaxine XR (EFFEXOR-XR) 150 mg, Daily Scheduled Current Scheduled Medications[4] PRNs Current PRN Medications[5] SURGICAL HX: Surgical History[6] SOCIAL HX: Social History[7] OBJECTIVE DATA LABS Lab Results Component Value Date WBC 6.96 05/01/2025 HGB 9.8 (L) 05/01/2025 HCT 32.5 (L) 05/01/2025 MCV 77 (L) 05/01/2025 PLT 218 05/01/2025 Lab Results Component Value Date CALCIUM 8.6 (L) 05/01/2025 BUN 9 05/01/2025 CREATININE 0.71 05/01/2025 BCR 13 05/01/2025 NA 137 05/01/2025 K 3.4 (L) 05/01/2025 CL 91 (L) 05/01/2025 CO2 36 (H) 05/01/2025 CA 9.8 02/18/2019 Type and Screen No results found for: ABO Results from last 7 days Lab Units 04/28/25 0813 APTT sec 32 INR 1.4* Lab Results Component Value Date HGBA1C 8.9 (H) 04/29/2025 Lab Results Component Value Date PGLU 222 (H) 05/01/2025 GLUCOSE 266 (H) 05/01/2025 ABG No results found for: PHART , AWC2UFH , PO2ART , SO2ART , BEART , CYV4ZUD , HCTART , SODIUMART , POTASSIUMART , POCTCL , POCGLU , IONCALART , LACTATE Lab Results Component Value Date HCTSYR 30.1 (L) 04/27/2025 KSYR 2.8 (L) 04/27/2025 CLSYR 88 (L) 04/27/2025 GLUSYR 131 (H) 04/27/2025 CAION 4.2 (L) 04/27/2025 ECHO No echocardiogram results found for the past 12 months PFTs No results found for: UHF0YDD , RUS9ALMQ , SME8QCB , FVCPRED BP Readings from Last 5 Encounters: 05/01/25 121/76 01/10/25 (!) 156/90 12/17/24 128/65 12/12/24 118/71 09/13/24 (!) 137/90 Physical Exam Airway Mallampati: II Cardiovascular Rhythm: regular Rate: normal Dental Pulmonary (+) decreased breath sounds Neurological Skin Musculoskeletal Extremities Anesthesia Plan ASA 4 Plan was reviewed with: SALES SECRETARY Anesthesia technique(s) discussed with the patient/family: general, MAC and regional Anesthesia plan agreed upon was: MAC Anesthetic plan and risks discussed with patient. Use of blood products discussed with patient who. Anesthesia Evaluation [1] Past Surgical History: Procedure Laterality Date ARTERIAL STENT PLACEMENT CHOLECYSTECTOMY GASTRIC BYPASS [2] Allergies Allergen Reactions Vancomycin Other - please document in the comment field Red man syndrome [3] Past Medical History: Diagnosis Date Acute kidney injury 05/19/2024 Alcohol abuse, in remission Alcohol abuse, in remission Anxiety disorder, unspecified Anxiety Arthritis Atrial fibrillation (CMS/HCC) CAP (community acquired pneumonia) 05/19/2024 Cellulitis 05/19/2024 CHF (congestive heart failure) COPD (chronic obstructive pulmonary disease) Depression GERD (gastroesophageal reflux disease) Hyperlipidemia Hypertension Left lower lobe pneumonia 05/19/2024 Sleep apnea Sleep apnea, obstructive Type 2 diabetes mellitus [4] [Transfer Hold] atorvastatin, 40 mg, Oral, Nightly [Transfer Hold] bisoprolol, 5 mg, Oral, BID [Transfer Hold] bumetanide, 4 mg, Oral, TID [Transfer Hold] cariprazine, 3 mg, Oral, Daily ceFAZolin, 3 g, Intravenous, Once DAPTOmycin, 10 mg/kg (Adjusted), Intravenous, q24h [Transfer Hold] dilTIAZem CD, 120 mg, Oral, Daily fentaNYL, , , [Transfer Hold] gabapentin, 600 mg, Oral, TID [Transfer Hold] insulin lispro, 0-15 Units, Subcutaneous, TID with meals [Transfer Hold] insulin lispro, 0-3 Units, Subcutaneous, Twice at night [Transfer Hold] Insulin Lispro, 20 Units, Subcutaneous, TID with meals [Transfer Hold] insulin NPH (Isophane), 33 Units, Subcutaneous, BID insulin regular, 3 Units, Intravenous, Once meropenem, 2 g, Intravenous, q8h midazolam, , , [Transfer Hold] mupirocin, 1 Application, Each Nostril, BID [Transfer Hold] pantoprazole, 40 mg, Oral, Daily before breakfast [Transfer Hold] polyethylene glycol, 17 g, Oral, Daily [Held by provider] rivaroxaban, 20 mg, Oral, Daily Insert peripheral IV, , , Once AND Saline lock IV, , , Once AND sodium chloride, 10 mL, Intravenous, q12h AND sodium chloride, 10 mL, Intravenous, PRN Insert peripheral IV, , , Once AND Saline lock IV, , , Once AND [Transfer Hold] sodium chloride, 10 mL, Intravenous, q12h AND [Transfer Hold] sodium chloride, 10 mL, Intravenous, PRN [Transfer Hold] spironolactone, 100 mg, Oral, Daily [Transfer Hold] tamsulosin, 0.4 mg, Oral, Daily [Transfer Hold] traZODone, 100 mg, Oral, Nightly [Transfer Hold] venlafaxine XR, 150 mg, Oral, Daily [5] PRN medications: [Transfer Hold] acetaminophen, [Transfer Hold] albuterol, [Transfer Hold] glucose OR [Transfer Hold] dextrose 10 % OR [Transfer Hold] dextrose 10 % OR [Transfer Hold]glucagon (human recombinant), glucose OR dextrose 10 % OR dextrose 10 % OR glucagon (human recombinant), fentaNYL, [Transfer Hold] ipratropium-albuterol, [Transfer Hold] LORazepam, midazolam, [Transfer Hold] oxyCODONE, Insert peripheral IV AND Saline lock IV AND [Transfer Hold] sodium chloride AND [Transfer Hold] sodium chloride, Insert peripheral IV AND Saline lock IVAND sodium chloride AND sodium chloride [6] Past Surgical History: Procedure Laterality Date ARTERIAL STENT PLACEMENT CHOLECYSTECTOMY GASTRIC BYPASS [7] Social History Tobacco Use Smoking status: Former Types: Cigarettes Smokeless tobacco: Current Types: Snuff Tobacco comments: 1 can daily. Vaping Use Vaping status: Never Used Substance Use Topics Alcohol use: Not Currently Drug use: No Comment: Drug use: No illicit drug use documented in this encounter Plan of Treatment Upcoming Encounters Date Type Department Care Team (Late st Contact Info) Description 06/22/2025 1:40 PM EST Office Visit [facility] [id number] [place] [phone] Mary Vicente MD [address] [place] [address] [address] [place] [address] 06/23/2025 8:00 AM EST Office Visit [facility] [id number] [place] [address] Sheila Marcano PA [address] [place] [phone] documented as of this encounter Procedures Procedure Name Priority Date/Time Associated Diagnosis Comments PB POINT OF CARE IMAGING PLACEHOLDER Routine 05/01/2025 7:00 AM EDT documented in this encounter Results * PB POINT OF CARE IMAGING PLACEHOLDER (05/01/2025 7:00 AM EDT) Narrative Holly Spicer MD - 05/01/2025 7:00 AM EDT Holly Spicer MD 05/01/2025 8:00 AM Peripheral Block Patient location during procedure: OR Start time: 05/01/2025 7:00 AM End time: 05/01/2025 7:18 AM Reason for block: post-op pain management Block is at surgeon's request Staffing Performed: Resident Anesthesiologist: Holly Spicer MD Resident: Koffi Naranjo MD Preanesthetic Checklist Completed: patient identified, IV checked, site marked, risks and benefits discussed, surgical consent, monitors and equipment checked, pre-op evaluation and timeout performed Peripheral Block Patient position: supine Prep: ChloraPrep Patient monitoring: continuous pulse ox, heart rate and groundwater monitoring technician Block type: adductor canal and popliteal Laterality: right Injection technique: single-shot Guidance: ultrasound guided Infiltration strength: 2 % Dose: 10 mL Ultrasound used for needle placement AND ultrasound image retained Needle Needle type: pencil-tip Needle gauge: 20 G. Needle localization: anatomical landmarks and ultrasound guidance Medications Administered: 0.5% ropivacaine - Injection 45 mL - 05/01/2025 7:00:00 AM Assessment Injection assessment: negative aspiration for heme, local visualized surrounding nerve on ultrasound and incremental injection Paresthesia pain: none Heart rate change: no Slow fractionated injection: yes Additional Notes 15 ml 0.5% ropivacaine via right adductor, 30 ml 0.5% ropivacaine via right popliteal. No complications. us Holly Spicer MD ANESTHESIA ORDERABLES Final R esult documented in this encounter Visit Diagnoses Not on filedocumented in this encounter Administered Medications Inactive Administered Medications - up to 3 most recent administrations Medication Order MAR Action Action Date Dose Rate Site dexmedetomidine in NS (Precedex) 4 mcg/mL infusion Intravenous, As needed, Starting on Thu05/01/25 at 0739, Until Thu05/01/25 at 1110, Routine Given 05/01/2025 8:41 AM EDT 8 mcg Given 05/01/2025 8:28 AM EDT 8 mcg Given 05/01/2025 8:16 AM EDT 8 mcg fentaNYL (Sublimaze) injection Intravenous, As needed, Starting on Thu05/01/25 at 0811, Until 05/01/25 at 1110, Routine, Anesthesia Intraprocedure Given 05/01/2025 8:26 AM EDT 25 mcg Given 05/01/2025 8:16 AM EDT 25 mcg Given 05/01/2025 8:11 AM EDT 25 mcg lactated Ringer's infusion Intravenous, Continuous PRN, Starting on Thu05/01/25 at 0728, Until Thu05/01/25 at 1110, Routine New Bag 05/01/2025 7:28 AM EDT midazolam (Versed) injection Intravenous, As needed, Starting on Thu05/01/25 at 0739, Until Thu05/01/25 at 1110, Routine, Anesthesia Intraprocedure Given 05/01/2025 7:57 AM EDT 1 mg Given 05/01/2025 7:39 AM EDT 1 mg ropivacaine (Naropin) injection Injection, Once PRN Procedure, Starting on Thu05/01/25 at 0700, Until Thu05/01/25 at 0700, Routine, Anesthesia Intraprocedure Given 05/01/2025 7:00 AM EDT 45 mL documented in this encounter Additional Health Concerns Assessment Noted Time PHQ-9 Depression Total Score: 0 09/14/19 2:29 PM EST A fall risk assessment has been complete d for the patient 09/13/2024 2:29 PM EST A Body Mass Index follow-up plan has been documented for the patient 01/11/2025 6:19 PM EDT documented as of this encounter Care Teams Wrap Yarn Sorter Relationship Specialty Start Date End Date Malcolm Hayward APRN [address] [place] [id number] PCP - General 09/21/23 documented as of this encounter
--- OUTSIDE RECORDS SUMMARY | 2025-05-01 06:30 | XMS_ITS | Encounter Summary ---
Author Organization Healthcare Address [address] [id number] Care Team Providers Care Hydraulic Press Servicer Name Role Phone DontaemyrtleMalcolm camejo Rodrick DIANA Primary Care Provider [phone] Reason for Visit * Reason Comments Wound Check * Auth/Cert (Routine) Specialty Diagnoses / Procedures Referred By Anish t Referred To Contact Diagnoses Diabetic foot ulcer with osteomyelitis Greg Lee MD [address] [place] [address] Phone: tel: fax: [facility] [address] [place] [address] Phone: tel: Referral ID Status Reason Start Date Expiration Date Visits Re quested Visits Authorized [id number] 1 1 Encounter Details Date Type Department Care Team (Late st Contact Info) Description 05/01/2025 7:30 AM EDT - 05/01/2025 8:50 AM EDT Surgery [facility] OPERATING ROOM [address] [place] [address] Mary Vicente MD [address] [facility] [address] [place] [address] AMPUTATION,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 4th Surgery Details Date/Time Status Location OR Service Patient Class Case Class Case Type Trauma Case? 05/01/2025 7:30 AM Posted STEVE OR AMINA OR 02 Vascular Surgery Inpatient T-Timed: to be done within 24 hours Panel 1 Procedure [facility] Anes Op Region Wound Class Comments AMPUTATION,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 4th Right Choice Toes Surgeon Surgeon Role Service Panel Paula Martinez MD Resident - Assisting 1 Mary Vicetne MD Primary Vascular Surgery 1 Mary Vicente [...] living in a detention (including now)? No 04/28/2025 [facility] Utilities Answer Date Recorded In [...] 5 tablet 05/17/2025 Insulin Pen Needle (Pen [place]) 31G X 5 MM misc USE TO [...] capsule by mouth daily. 05/10/2018 HYDROcodone-acetami nophen (Gualala) 10-325 MG tablet Take 1 tablet by [...] exposure provided Taken 05/17/20252227 by Ivan Slaughter RNlead front end developer Interventions: medication (see MAR) Goal: Optimal Wound [...] Ongoing, Progressing Intervention: Promote Activity and Functional [place] Flowsheets Taken 05/18/2025 1131 by Kylee Gonzalez [...] DO PCP name and Address: Malcolm Hayward, ELECTRONIC TEST TECHNICIAN [address] [place] [address] / [facility] [id number] Brief History of Present Illness 49 M [...] extremity. He was accepted for discharge to [facility] rehab facility. Urinary Retention and Recurrent [...] He was medically stable for discharge to [facility] rehab facility, with recommendations for close [...] HYDROcodone-acetaminophen 10-325 MG tablet Commonly known as: Gualala Take 1 tablet by mouth every 6 [...] the skin 1 time per week. Pen [place] 31G X 5 MM bone and joint [...] Your Medications These medications were sent to [facility] [address] [address] gabapentin 600 MG tablet HYDROcodone-acetaminophen 10-325 MG tablet insulin regular 100 UNIT/ML injection vial insulin regular 500 UNIT/ML CONCENTRATED injection vial Information about where to get these medications is not yet available Ask your nurse or doctor about these medications ferrous sulfate 324 MG tablet delayed-release Discharge Diagnosis Medical Problems Active and Resolved Hospital Problems Hospital Morbid obesity ([facility]) Hypertension Type 2 diabetes Overview Signed [...] H 05/30/2025 2:40 PM Sheila Marcano PA [facility] 06/14/2025 1:40 PM Divine Archer APRN ENDOTFBNBR [facility] 06/22/2025 1:40 PM Mary Vicente MD [facility] Pertinent Physical Exam At Time of Discharge [...] Note Gonzalo Smalls 49 y.o. male CSN: [id number] Admission: 04/27/2025 9:29 PM Primary Problem: Diabetic foot ulcer Primary Rn Delivery: Primary Caregiver: Self Assistance Available at Discharge: Availability of Care Givers (#Hours): 24 hours Housing Circumstances-Z Codes: Housing Circumstances (select all that apply): Low Income (101-300% Federal Poverty Guidlines) - Z596 Discharge Facility/Level of Care Needs: Discharge Facility/Level of Care Needs: 62-Rehab facilty ([place] [facility]) Patient's Choice of Community Agency(s): Patient's Choice of Community Agency(s): [facility] Patient/Family Anticipated Services at Transition: Patient/Family [...] Recieved By: Gonzalo Smalls- the patient Follow-up: [facility] [address] Floor [address], [address] [facility] [id number] Primary care provider (PCP) Malcolm Hayward, ELECTRONIC TEST TECHNICIAN [address] [facility] [address] Discharge Transportation: Transportation Anticipated: medical transport Transportation [...] Araceli in admission who confirmed pt's acceptance #[phone]. Pt updated and in agreement with d/c plan. Team and bedside RN updated. Bedside RN to call report to #[phone]. Araceli has access to [employer] and will get d/c s [facility] that way. Script for controlled medication to be sent to [facility] [place]. Ambulance to transport the pt is [...] Mobility Bed Mobility Exam: Scooting/Bridging Level of [place]: Contact guard Physical/Nonphysical Assist: Verbal Cues, Minimal cues Assistive Device: Overhead trapeze Bed Mobility Exam: Supine to Sit Level of [place]: Minimum assist (75% patient's effort) Physical/Nonphysical Assist: HOB elevated, Verbal Cues, Minimal cues Assistive Device: Overhead trapeze Bed Mobility Exam: Sit to Supine Level of [place]: Stand-by assist Physical/Nonphysical Assist: Verbal Cues, Minimal cues Assistive Device: Overhead trapeze Transfers Transfer Exam: Sit to stand Level of [place]: Maximum assist (25% patient's effort) Physical/Nonphysical Assist: Verbal Cues, Nonverbal cues (demo/gestures), Additional assist utilized for safety, Set-up required, Minimal cues Assistive Device: Walker, rolling (bariatric) Transfer Exam: Stand to Sit Level of [place]: Maximum assist (25% patient's effort) Physical/Nonphysical Assist: [...] help from Spouse Level of Mobility Mobility [place] Independent gait with device History of Falls [...] go, I'm just nervous. Visitors Present No Senior Behavioral Scientist (if applicable) Senior Behavioral Scientist: Not Applicable OBJECTIVE PAIN Pt was without c/o pain at the beginning of this session and throughout the PT treatment. Prior to PROFESSOR OF EXERCISE SCIENCE's departure: * rest was provided * patient [...] by this therapist: BED MOBILITY Level of [place] Physical/Non- physical Assist Adaptive Equipment Utilized Rolling/ Turning Contact guard Verbal Cues, Set-up required, Minimal cues Bed rails, Other (ENVIRONMENTAL HEALTH MANAGER) Scooting/ Bridging Contact guard Verbal Cues, Minimal [...] breaks between standing trials. TRANSFERS Level of [place] Physical/Non- physical Assist Adaptive Equipment Utilized Sit [...] placement, sequencing, weight shifting, appropriate use of ENVIRONMENTAL HEALTH MANAGER, and maintaining NWB on RLE. Tactile cues provided to assist in sequencing and weight shifting. AMBULATION Level of [place] Distance Adaptive Equipment Utilized Ambulation N/A N/A N/A Comments Unable to side step or progress to forward hop step at bariatric RW level due to inabilityto maintain prolonged standing position while maintaining NWB in RLE. BALANCE Postural Appearance Posture: Within Functional Limits, Forward head Level of [place] Balance Support Activities Static Sit Standby assist [...] Abduction * Ankle pumps x1-2 sec holds PROFESSOR OF EXERCISE SCIENCE provided minimal verbal and tactile cueing to [...] overall. Standardized Assessments Standardized Assessments Standardized Assessments: [facility] 6-Clicks Mobility Assessment [facility] 6-Clicks Mobility Assessment Difficulty patient has [...] climbing 3-5 steps with a railing?: Unable [facility] 6-Clicks Mobility Assessment Total : 11 PATIENT / FAMILY EDUCATION Patient was educated regarding the PT POC and recommendations regarding discharge planning, as wellas progressively increased time spent out of bed/up to chair, and continued mobilization / ambulation with nursing staff as tolerated to promote increased activity tolerance and Endurance. PROFESSOR OF EXERCISE SCIENCE providing verbal cues/demonstration for pursed-lip breathing technique to promote improved ventilation, decreased respiratory rate and energy conservation with activity. PROFESSOR OF EXERCISE SCIENCE stressed to patient the importance of having [...] has been following with urology outpatient at [facility]. 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 Also discussed contacting [email or web address] directly for the financial assistance program. -hopefully [...] team via secure chat or page us [phone] during 7a-7p, Thursday-Thursday. For after hours please [...] Ongoing, Progressing Intervention: Promote Activity and Functional [place] Flowsheets (Taken 05/16/2025 1949) Self-Care Promotion: independence encouraged * Progress Notes - Chayo Jennings RN - 05/16/2025 2:16 PM EST Case Management Adult Progress Note Gonzalo Smalls 49 y.o. male CSN: [id number] Admission: 04/27/2025 9:29 PM Primary Problem: Diabetic foot ulcer Anticipated Discharge Date: 05/18/25 Pt is in a need for rehab placement and was referred and accepted by Merly Espinoza- LOLA CM spoke with Araceli in admission, ph#[phone] who confirmed pts acceptance. Pt updated and [...] Note Gonzalo Smalls 49 y.o. male CSN: [id number] This is a 49 y.o. male patient was admitted to [facility] with the diagnosis of Diabetic Foot [...] Hayward APRN, LocalEndo is Dr. Garvey in [place], [place]. Medication Education instructions given: The use [...] Prevention , pt reports he has a admitting supervisor as well Follow Ups: Provided with educational [...] has been following with urology outpatient at [facility]. They have postulated this to [...] the video go to this web address: [email or web address] Or, scan this QR code with your [...] to gently smooth the nail. Have a admitting supervisor trim your nails if you can't see [...] remove corns, calluses, or warts by yourself. Avwo-qlb-tjojqfe products can burn or damage your skin. [...] your primary care doctor or by a admitting supervisor. This is a doctor who specializes in foot care. Some diabetes centers have regular foot clinics. Last Reviewed Date: 2024 00:00:00 ?? [id number] [employer]. All rights reserved. This information is not intended as a substitute for professional medical care. Always follow your healthcare professional's instructions. * Ruy Baires - Vivian Garcia RN - 05/16/2025 11:06 AM EST Images from the original note were not included. [id number] Inspecting Your Feet (Diabetes) Wxlw-ia-[id number]: Last Reviewed Date: 2024 00:00:00 ?? [id number] [employer]. All rights reserved. 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 Also discussed contacting [email or web address] directly for the financial assistance program. -patient with plans to discharge to [facility] once able - need to check with [facility] to see if they are okay with utilizing U500 insulin if patient is able to bring in his own supply Insulin regimen - would like patient to utilize U500 home dosing at [facility] Continue Dexcom G7 CGM Likely [...] team via secure chat orpage us at [phone] during 7a-7p, Thursday-Thursday. For after hours please contact the on-call Endocrine Fellow. Thank you for the opportunity to participate in this patient's care. - Reviewed notes by primary team and consulting services to determine appropriate plan of care as in the note. - Discussed plan and management with patient and ext js developer Time Spent: I personally spent a total [...] Note Gonzalo Smalls 49 y.o. male CSN: [id number] Room/Bed 117/117A Nutrition evaluation type: follow-up Reason [...] Supplemental oxygen O2 Delivery Method: Nasal cannula [place] Coma Scale Score: 15 Miguel Ángel Scale [...] Weight Evaluation: Extreme Obesity (BMI > 40) [place] Body Weight (kg): 80.9 Percent [place] Body Weight: 311 Adjusted Body Weight (kg): [...] Regular Adult Carbohydrate Restriction: Consistent CHO 2 (4971-3069 Steven, 80 g/meal) Adult Sodium Restriction: 2,000 mg Na Percent Meals Eaten (%): 75-100% of meals Diet Experience and Nutrition History: Diet Education Provided: Will monitor Pertinent home medications: Albuterol, Bumex, Insulin, Metformin, Ozempic, Aldactone Episcopal needs: Nutrition Focused Physical Exam: Physical exam [...] has been following with urology outpatient at [facility]. They have postulated this to be related to his diabetes and have had several voiding trials which have failed. Also has un dergone proctoscopy (?) which was normal. 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 and he [...] plan and management with patient. Selin Lee Civil Designer Division of Hospital Medicine [facility] * Care Plan - Santy Garcia [...] Note Gonzalo Smalls 49 y.o. male CSN: [id number] Admission: 04/27/2025 9:29 PM Primary Problem: Diabetic foot ulcer Anticipated Discharge Date: TBD Pt was referred to many SNF in and out of [place]. Few SNF are considering accepting the pt along with [place] [facility], ph#[phone]. LOLA TOVAR spoke with Araceli- admission at [facility]. Araceli is stating that she is checking if they can order lift needed for the pt and will call back. Team aware. LOLA TOVAR will continue to follow and assist as needed. 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 Also discussed contacting [email or web address] directly for the financial assistance program. -patient with plans to discharge to [facility] once able - need to check with [facility] to see if they are okay with utilizing U500 insulin if patient is able to bring in his own supply Insulin regimen - would like patient to utilize U500 home dosing at [facility] Continue Dexcom G7 CGM Likely [...] team via secure chat orpage us at [phone] during 7a-7p, Thursday-Thursday. 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 Also discussed contacting [email or web address] directly for the financial assistance program. -patient with plans to discharge to [facility] once able - need to check with [facility] to see if they are okay with utilizing U500 insulin if patient is able to bring in his own supply Insulin regimen - would like patient to utilize U500 home dosing at [facility] Continue Dexcom G7 CGM Likely [...] via secure chat or page us at [phone] during 7a-7p, Thursday-Thursday. For after hours please [...] Ongoing, Progressing Intervention: Promote Activity and Functional [place] Flowsheets Taken 05/14/2025 0946 Self-Care Promotion: independence encouraged BADL personal objects within reach BADL personal routines maintained meal set-up provided Taken 05/14/2025 0800 Activity Assistance Provided: assistance, stand-by assistance, 2 people Taken 05/13/2025 0931 Adaptive Equipment Use: used independently Problem: Self-Care Deficit Goal: Improved Ability to Complete Activities of Daily Living Outcome: Ongoing, Progressing Intervention: Promote Activity and Functional [place] Flowsheets Taken 05/14/2025 0946 Self-Care Promotion: independence [...] has been following with urology outpatient at [facility]. They have postulated this to be related to his diabetes and have had several voiding trials which have failed. Also has un dergone proctoscopy (?) which was normal. 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 and he [...] plan and management with patient. 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 Also discussed contacting [email or web address] directly for the financial assistance program. -patient with plans to discharge to [facility] once able - need to check with [facility] to see if they are okay with utilizing U500 insulin if patient is able to bring in his own supply Insulin regimen - would like patient to utilize U500 home dosing at [facility] Continue Dexcom G7 CGM Likely [...] via secure chat or page us at [phone] during 7a-7p, Thursday-Thursday. For after hours please [...] Review Outcome: Ongoing, Progressing Flowsheets (Taken 05/13/2025 9529) Progress: improving Plan of Care Reviewed With: [...] Ongoing, Progressing Intervention: Promote Activity and Functional [place] Flowsheets Taken 05/13/2025 0931 Adaptive Equipment Use: [...] has been following with urology outpatient at [facility]. They have postulated this to be related to his diabetes and have had several voiding trials which have failed. Also has un dergone proctoscopy (?) which was normal. 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 and he [...] plan and management with patient. Selin Lee Civil Designer Division of [facility] * Care Plan - Haritha Lam [...] Ongoing, Progressing Intervention: Promote Activity and Functional [place] Flowsheets (Taken 05/12/20252128) Activity Assistance Provided: assistance, 2 people Self-Care Promotion: independence encouraged BADL personal objects within reach BADL personal routines maintained meal set-up provided * Progress Notes - Max Alexander - 05/12/2025 4:32 PM EDT Case Management Adult Progress Note Gonzalo Smalls 49 y.o. male CSN: [id number] Admission: 04/27/2025 9:29 PM Primary Problem: Diabetic foot ulcer Anticipated Discharge Date: TBD Plan of care reviewed with pt's care team; and per MD, pt is medically ready for discharge pending placement. SW sent 145 Referral via [facility]. SW will continue to follow-up with pt's MD and care team on their progress and discharge plan. Max Alexander, ACRYLIC FABRICATOR, MANAGER PRODUCTION Senior Aircraft Detail Draftsperson/Case Management [facility] * Progress Notes - Selin Lee MD [...] has been following with urology outpatient at [facility]. They have postulated this to be related to his diabetes and have had several voiding trials which have failed. Also has un dergone proctoscopy (?) which was normal. 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 and he [...] [facility]. Current condition is not at [...] plan and management with patient. 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 Also discussed contacting [email or web address] directly for the financial assistance program. -patient with plans to discharge to [facility] once able - need to check with [facility] to see if they are okay with utilizing U500 insulin if patient is able to bring in his own supply Insulin regimen - would like patient to utilize U500 home dosing at [facility] Continue Dexcom G7 CGM Likely [...] via secure chat or page us at [phone] during 7a-7p, Thursday-Thursday. For after hours please [...] rehab Equipment Recommended: Defer to facility History Gonzaol Smalls is 49 y.o. male admitted 04/27/2025 for work-up of Diabetic foot ulcer. Hospital Course 1. Other chronic osteomyelitis of right foot ([facility]) 2. Diabetic foot ulcer with osteomyelitis [...] remission, Anxiety disorder, unspecified, Arthritis, Atrial fibrillation ([facility]), CAP (community acquired pneumonia) (05/19/2024), Cellulitis [...] understanding. Participants in Care Family/Caregiver Present: No Senior Behavioral Scientist: Not Applicable Presentation Oxygen Therapy: Supplemental oxygen [...] of Function Receives Help From: Spouse Mobility [place]: Independent gait with device ADL Performance: Needs assistance Bathing: Needs assist Upper Body Dressing: Needs assist Lower Body Dressing: Needs assist Grooming: Needs assist Toileting: Independent Eating: Independent Home Management Skills: Needs assist Patient/Family Goals [facility] Objective Pain Pt reported 7/10 pain in [...] Mobility Bed Mobility Exam: Scooting/Bridging Level of [place]: Contact guard (scooting hips forward to edge of bed) Physical/Nonphysical Assist: Verbal Cues, Minimal cues Assistive Device: Overhead trapeze Bed Mobility Exam: Supine to Sit Level of [place]: Minimum assist (75% patient's effort) Physical/Nonphysical Assist: HOB elevated, Verbal Cues Assistive Device: Overhead trapeze Bed Mobility Exam: Sit to Supine Level of [place]: Stand-by assist Physical/Nonphysical Assist: Verbal Cues, Minimal cues Assistive Device: Overhead trapeze Transfers Transfer Exam: Sit to stand Level of [place]: Maximum assist (25% patient's effort) (x3 reps from edge of bed, good adherence to NWB RLE) Physical/Nonphysical Assist: Verbal Cues, Nonverbal cues (demo/gestures), Additional assist utilized for safety Assistive Device: Walker, rolling (bariatric) Transfer Exam: Stand to Sit Level of [place]: Maximum assist (25% patient's effort) Physical/Nonphysical Assist: [...] climbing 3-5 steps with a railing?: Unable [facility] 6-Clicks Mobility Assessment Total : 11 [...] 1. Other chronic osteomyelitis of right foot ([facility]/HCC) 2. Diabetic foot ulcer with osteomyelitis [...] session. Participants in Care Family/Caregiver Present: No Senior Behavioral Scientist: Not Applicable Presentation Oxygen Therapy: Supplemental oxygen [...] of Function Receives Help From: Spouse Mobility [place]: Independent gait with device ADL Performance: Needs [...] Mobility Bed Mobility Exam: Scooting/Bridging Level of [place]: Contact guard (scooting hips forward to edge of bed) Physical/Nonphysical Assist: Verbal Cues, Minimal cues Bed Mobility Exam: Supine to Sit Level of [place]: Minimum assist (75% patient's effort) Physical/Nonphysical Assist: HOB elevated, Verbal Cues Assistive Device: Overhead trapeze Bed Mobility Exam: Sit to Supine Level of [place]: Stand-by assist Physical/Nonphysical Assist: Verbal Cues, Minimal cues Assistive Device: Overhead trapeze Transfers Transfer Exam: Sit to stand Level of [place]: Maximum assist (25% patient's effort) (x3 reps from edge of bed, good adherence to NWB RLE) Physical/Nonphysical Assist: Verbal Cues, Nonverbal cues (demo/gestures), Additional assist utilized for safety Assistive Device: Walker, rolling (bariatric) Transfer Exam: Stand to Sit Level of [place]: Maximum assist (25% patient's effort) Physical/Nonphysical Assist: [...] extremity support, Left upper extremity support ([facility] RW) Static Standing-Level of Assistance: [...] x3 reps of sit to stand to [facility] RW with max Ax2 persons [...] Where Assessed: Other (Comment) (in stance at [facility] RW level) Toileting Interventions: Pt with small incontinent BM, required dep A for hygiene to buttocks in stance at [facility] RW level with assistance from [...] a helper. 5 Set-up or Clean-up Assistance [place] sets up or cleans up; patient completes activity. [place] assists only prior to or following the activity. 4 Supervision or touching assistance [place] provides verbal cues and/or touching/steadying and/or contact guard assistance as patient completes activity. Assistance may be provided throughout the activity or intermittently. 3 Partial/Moderate Assistance [place] does LESS THAN HALF the effort. [place] lifts, holds or supports trunk or limbs, but provides less than half the effort. 2 Substantial/Maximal Assistance [place] does MORE THAN HALF the effort. [place] lifts or holds trunkor limbs and provides more than half the effort. 1 Dependent [place] does ALL of the effort. Patient does [...] Note Gonzalo Smalls 49 y.o. male CSN: [id number] Admission: 04/27/2025 9:29 PM Primary Problem: Diabetic foot ulcer Anticipated Discharge Date: TBD RN CM informed by bedside RN that pt's weight was obtained and current weight is 244.3kg (538.5 lbs)- due to pt being over 500 lbs [facility] is not able to accept [...] Note Gonzalo Smalls 49 y.o. male CSN: [id number] Admission: 04/27/2025 9:29 PM Primary Problem: Diabetic foot ulcer Anticipated Discharge Date: TBD LOLA TOVAR f/ u with Suze- admission at [facility]. 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 Also discussed contacting [email or web address] directly for the financial assistance program. -patient with plans to discharge to [facility] once able - need to check with [facility] to see if they are okay with utilizing U500 insulin if patient is able to bring in his own supply Insulin regimen - would like patient to utilize U500 home dosing at [facility] Continue Dexcom G7 CGM Likely [...] via secure chat or page us at [phone] during 7a-7p, Thursday-Thursday. For after hours please [...] has been following with urology outpatient at [facility]. They have postulated this to be related to his diabetes and have had several voiding trials which have failed. Also has un dergone proctoscopy (?) which was normal. 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 and he [...] plan and management with patient. Selin Lee Civil Designer Division of [facility] Medicine [facility] * Care Plan - Haritha Lam - [...] has been following with urology outpatient at [facility]. They have postulated this to be related to his diabetes and have had several voiding trials which have failed. Also has un dergone proctoscopy (?) which was normal. 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 and he [...] FULL CODE Medically Ready for Discharge:Ready now, [facility] denied admission, referral sent for swing [...] plan and management with patient. Selin Lee Civil Designer Division of Hospital Medicine [facility] * Progress Notes - Chayo Jennings RN - 05/10/2025 8:59 AM EDT Case Management Adult Progress Note Gonzalo Smalls 49 y.o. male CSN: [id number] Admission: 04/27/2025 9:29 PM Primary Problem: Diabetic foot ulcer Anticipated Discharge Date: TBD LOLA CM f/u on [facility] referral and was told that [facility] physician declined pt's acceptance to [facility]. 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 Also discussed contacting [email or web address] directly for the financial assistance program. -patient with plans to discharge to [facility] once able - need to check with [facility] to see if they are okay with utilizing U500 insulin if patient is able to bring in his own supply Insulin regimen - would like patient to utilize U500 home dosing at [facility] Continue Dexcom G7 CGM Likely [...] Adult Inpatient Diabetes team via secure chat orpaVhall us at [phone] during 7a-7p, Thursday-Thursday. For after hours please [...] Intervention: Promote Wound Healing Flowsheets (Taken 05/10/2025 0785) Sleep/Rest Enhancement: consistent schedule promoted natural light [...] sit <> stand transfers Visitors Present none Senior Behavioral Scientist (if applicable) N/a OBJECTIVE PAIN Pt endorses [...] Mobility Bed Mobility Exam: Scooting/Bridging Level of [place]: Stand-by assist Physical/Nonphysical Assist: Verbal Cues, Minimal cues Assistive Device: Overhead trapeze Bed Mobility Exam: Supine to Sit Level of [place]: Stand-by assist Physical/Nonphysical Assist: Verbal Cues, Minimal cues, HOB elevated Assistive Device: Overhead trapeze Bed Mobility Exam: Sit to Supine Level of [place]: Stand-by assist Physical/Nonphysical Assist: Verbal Cues, Minimal cues Assistive Device: Overhead trapeze Transfers Transfer Exam: Sit to stand Level of [place]: Maximum assist (25% patient's effort) Physical/Nonphysical Assist: Set-up required, Additional assist utilized for safety, Maximal cues, Verbal Cues, Nonverbal cues (demo/gestures) Assistive Device: Hand held assist Transfer Exam: Stand to Sit Level of [place]: Maximum assist (25% patient's effort) Physical/Nonphysical Assist: [...] session Participants in Care Family/Caregiver Present: No Senior Behavioral Scientist: Not Applicable Presentation Oxygen Therapy: Supplemental oxygen [...] sequencing Bed Mobility Exam: Scooting/Bridging Level of [place]: Stand-by assist Physical/Nonphysical Assist: Verbal Cues, Minimal cues Assistive Device: Overhead trapeze Bed Mobility Exam: Supine to Sit Level of [place]: Stand-by assist Physical/Nonphysical Assist: Verbal Cues, Minimal cues, HOB elevated Assistive Device: Overhead trapeze Bed Mobility Exam: Sit to Supine Level of [place]: Stand-by assist Physical/Nonphysical Assist: Verbal Cues, Minimal [...] placement, sequencing, weight shifting, appropriate use of ENVIRONMENTAL HEALTH MANAGER, and maintaining NWB on LLE. Tactile cues provided to assist in sequencing and weight shifting. Transfer Exam: Sit to stand Level of [place]: Maximum assist (25% patient's effort) Physical/Nonphysical Assist: Set-up required, Additional assist utilized for safety, Maximal cues, Verbal Cues, Nonverbal cues (demo/gestures) Assistive Device: Hand held assist Transfer Exam: Stand to Sit Level of [place]: Maximum assist (25% patient's effort) Physical/Nonphysical Assist: [...] assistance Static Standing - Interventions: Standing w ENVIRONMENTAL HEALTH MANAGER Therapeutic Activity (40 minutes) See bed mobility, balance, and transfers sections for more detail. Standardized Assessments [facility] 6-Clicks Mobility Assessment Difficulty patient has [...] climbing 3-5 steps with a railing?: Unable [facility] 6-Clicks Mobility Assessment Total : 13 [...] AM EDT Adult Nutrition Evaluation Note Gonzalo Smalsl 49 y.o. male CSN: [id number] Room/Bed 117/117A Nutrition evaluation type: follow-up Reason [...] Supplemental oxygen O2 Delivery Method: Nasal cannula [place] Coma Scale Score: 15 Miguel Ángel Scale [...] Weight Evaluation: Extreme Obesity (BMI > 40) [place] Body Weight (kg): 80.9 Percent [place] Body Weight: 311 Adjusted Body Weight (kg): [...] Regular Adult Carbohydrate Restriction: Consistent CHO 2 ([id number] Steven, 80 g/meal) Adult Sodium Restriction: 2,000 mg Na Percent Meals Eaten (%): 100% of meals Diet Experience and Nutrition History: Diet Education Provided: Will monitor Pertinent home medications: Albuterol, Bumex, Insulin, Metformin, Ozempic, Aldactone Episcopal needs: Nutrition Focused Physical Exam: Physical exam [...] (H) 05/07/2025 I reviewed bg tracing in [facility] glucose timeline 05/09/25 ASSESSMENT Hospital Course: [...] continue to assess need -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 For after hours please [...] has been following with urology outpatient at [facility]. They have postulated this to be related to his diabetes and have had several voiding trials which have failed. Also has un dergone proctoscopy (?) which was normal. 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 For after hours please [...] Note Gonzalo Smalls 49 y.o. male CSN: [id number] Admission: 04/27/2025 9:29 PM Primary Problem: Diabetic [...] acute rehab. RNCM awaiting MD approval from [facility]. Liaison will reach out with answer. Will continue to follow. RNCM will continue to monitor for further discharge needs. Mayra Apodaca RN * Care Plan - Jeevan Shah RN - 05/08/2025 12:43 PM EDT Problem: Wound Goal: Optimal Wound Healing Outcome: Ongoing, Progressing Intervention: Promote Wound Healing Note: See recs, cont wound vac Patient evaluated by [facility] nurse, individualized recommendations placed and [...] 05/08/2025 10:19 AM Wound Image Wound Assessment [place];Red (moist) Margins Well-defined edges Saba-Wound Assessment Intact [...] slight granulation, no bone exposed or felt, asba wound prepped with cavalon and drape half [...] the video go to this web address: https://bit.ly/7I80VP8 Or, scan this QR code with your smart phone ?? [facility] * Thi Chavarria RN - 05/08/2025 10:55 AM EDT Images from the original note were not included. Type 2 diabetes: 7 Ways to Prevent Supervisor Wool Shearing Complications - Video Watch this video to [...] the video go to this web address: https://bit.ly/1X4hP5g Or, scan this QR code with your [...] to gently smooth the nail. Have a admitting supervisor trim your nails if you can't see [...] remove corns, calluses, or warts by yourself. Spgm-mnp-fwarpfs products can burn or damage your skin. [...] your primary care doctor or by a admitting supervisor. This is a doctor who specializes in foot care. Some diabetes centers have regular foot clinics. Last Reviewed Date: 2024 00:00:00 ?? [id number] [employer]. All rights reserved. This information is not [...] the video go to this web address: https://bit.Parantez/[email or web address] Or, scan this QR code with your smart phone ?? [facility] * Consults - Beatriz Hu DO - 05/08/2025 8:38 AM EDTAssociated Order(s): Inpatient consult to Urology Inpatient consult to Urology Consult performed by: Beatriz Hu DO Consult ordered by: Diane Guzman MD [facility] Urology Consult Note 05/08/25 Service Requesting Consultation: Hospital Medicine CC: urinary retention HPI: Gonzalo Smalls is a 49 y.o. male with a past urologic history of urinary retention, recurrent UTIs,BPH, morbid obesity who presented to [facility] ED with diabetic foot ulcer. On 12/21/2024 [...] states. After this he presented to an [facility] urologist Dr. Painting who stated to patient [...] (NEURONTIN) 600 mg, 3 times daily HYDROcodone-acetaminophen ([place]) 10-325 MG tablet 1 tablet, Every 6 hours PRN Insulin Pen Needle (Pen [place]) 31G X 5 MM bone and joint [...] presented to [facility] ED with diabetic foot ulcer. On 12/21/2024 [...] states. After this he presented to an [facility] urologist Dr. Painting who stated to patient [...] established care with a Dr. Mendenhall an [facility] urologist as this is closer to home [...] established care with a Dr. Mendenhall an [facility] urologist as this is closer to home [...] has been following with urology outpatient at [facility]. They have postulated this to be related to his diabetes and have had several voiding trials which have failed. Also has un dergone proctoscopy (?) which was normal. 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 and he [...] Mobility Bed Mobility Exam: Scooting/Bridging Level of [place]: Stand-by assist Physical/Nonphysical Assist: Verbal Cues Bed Mobility Exam: Supine to Sit Level of [place]: Contact guard Physical/Nonphysical Assist: Set-up required, Verbal Cues, Minimal cues Bed Mobility Exam: Sit to Supine Level of [place]: Minimum assist (75% patient's effort) Physical/Nonphysical Assist: Set-up required, Verbal Cues, Minimal cues Transfers Transfer Exam: Sit to stand Level of [place]: (Pt attempted with use of bariatric RW; [...] return to supine. Therapeutic Exercise Access Code: [email or web address] HEP printed and pt received copy with [...] provided based on observable deficits.* Level of [place] Interventions Grooming Patient demo's adequate BUE strength/ROM [...] tasks for toileting routine including transition [facility] with CGA in prep for BSC transfer. [...] maintain WB status. FUNCTIONAL MOBILITY Level of [place] Physical/Non-physical Assist Adaptive Equipment Utilized Scooting/ Bridging [...] Appearance Posture: Within Functional Limits Level of [place] Balance Support Static Sit Standby assist Feet supported Dynamic Sit Standby assisst Feet supported THERAPEUTIC EXERCISE INTERVENTIONS (10 minutes) Treatment Details The patient was educated re: implementation of BUE HEP in order to target muscle groups necessary for functional mobility and ADL independence. HEP printed and each exercise reviewed, pt verbalized understanding. twago - teamwork across global offices Access Details (if appropriate) Access Code: [email or web address] URL: [email or web address] Date: 05/07/25 Exercises Included - Seated Elbow [...] has been following with urology outpatient at [facility]. They have postulated this to be related to his diabetes and have had several voiding trials which have failed. Also has un dergone proctoscopy (?) which was normal. 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 For after hours please [...] has been following with urology outpatient at [facility]. They have postulated this to be related to his diabetes and have had several voiding trials which have failed. Also has un dergone proctoscopy (?) which was normal. 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 For after hours please [...] is in abx, has his CHG and [place] wipes done in this shift Problem: Mobility [...] vascular surgery; wound vac applied 05/03 by [facility] Wound Assessment: Wound 05/01/25 Surgical Toe (Comment which one) Anterior;Right (Active) Date First Assessed/Time First Assessed: 05/01/25 0805 Present on Original Admission: No Hand Hygiene Completed: Yes Primary Wound Type: Surgical Location: Toe (Comment which one) Wound Location Orientation: Anterior;Right Assessments 05/05/2025 11:44 AM Wound Image Wound Assessment [place];Red (moist , full thickness) Margins Well-defined edges [...] no orders noted for wound vac, maessaged [facility] team for guidance. Orders placedfor [...] wound vac in use Patient evaluated by [facility] nurse, individualized recommendations placed and care plan interventions updated; see wound care note for details regarding recommendations to support optimal wound healing. * Progress Notes - Mayra Apodaca RN - 05/05/2025 12:30 PM EDT Case Management Adult Progress Note Gonzalo Smalls 49 y.o. male CSN: [id number] Admission: 04/27/2025 9:29 PM Primary Problem: Diabetic [...] No MDRO isolated 04/27/25 Blood culture NGTD [facility] Culture Data: - 04/25/25: Blood [...] pathology. Patient is planned to discharge to [facility]. Recommend close follow-up with vascular [...] PA-C Division of Infectious Diseases Available by Eye Phone History, assessment, and plan discussed with ID [...] Units Subcutaneous BID PRN Sarah Martinez P, ELECTRONIC TEST TECHNICIAN insulin NPH (Isophane) (HumuLIN N,NovoLIN N) [...] (H) 05/03/2025 I reviewed bg tracing in [facility] glucose timeline 05/05/25 ASSESSMENT Hospital Course: [...] mellitus - type 2 -Home medications: CGM: Nordic Neurostim G7 Insulin regimen: U500 insulin: prescription for [...] via secure chat or page us at [phone] during -7p, Thursday-Thursday. For after hours please [...] precautions. Bed Mobility Exam: Rolling/Turning Level of [place]: Contact guard Physical/Nonphysical Assist: Verbal Cues, Moderate cues Bed Mobility Exam: Scooting/Bridging Level of [place]: Stand-by assist Bed Mobility Exam: Supine to Sit Level of [place]: Contact guard Physical/Nonphysical Assist: Verbal Cues Bed Mobility Exam: Sit to Supine Level of [place]: Stand-by assist Patient performed rolling bilaterally for placement of lift pad. Transfers Transfer Exam: Sit to stand Level of [place]: (Patient unable to perform without engaging right [...] promote tempo and full ROM. Standardized Assessments [facility] 6-Clicks Mobility Assessment Difficulty patient has [...] climbing 3-5 steps with a railing?: Unable [facility] 6-Clicks Mobility Assessment Total : 12 [...] help from Spouse Level of Mobility Mobility [place] History of Falls ADL Performance Needs assistance [...] to therapy this date. Visitors Present No Senior Behavioral Scientist (if applicable) OBJECTIVE PAIN Pain Score (0-10): [...] sba for bed mobility tasks. Level of [place] Adaptive Equipment Utilized Comments Feeding Grooming Setup washing face/hands Bathing Upper Body Dressing Lower Body Dressing Shoe Level of Assistance: Dependent Toileting IADLs Health Management Community Re-Entry BALANCE Postural Appearance INTERVENTIONS Level of [place] Balance Support Comments Static Sit Standby assist [...] weight shifting to promote safety. Level of [place] Physical/Non-physical Assist Adaptive Equipment Utilized Rolling/ Turning [...] No MDRO isolated 04/27/25 Blood culture NGTD [facility] Culture Data: - 04/25/25: Blood [...] PA-C Division of Infectious Diseases Available by Datam Chat History, assessment, and plan discussed with [...] mL IVPB (vial adapter required) 2 g [id number] Diane Guzman MD 36.7 mL/hr at 05/03/25 [...] Units Subcutaneous BID PRN Sarah Martinez P, ELECTRONIC TEST TECHNICIAN insulin NPH (Isophane) (HumuLIN N,NovoLIN N) injection 50 Units 50 Units Subcutaneous BID Sarah Martinez ELECTRONIC TEST TECHNICIAN 50 Units at 05/03/252043 ipratropium-albuterol (Duo-Neb) [...] (H) 05/02/2025 I reviewed bg tracing in [facility] glucose timeline 05/04/25 ASSESSMENT Hospital [...] mellitus - type 2 -Home medications: CGM: Nordic Neurostim G7 Insulin regimen: U500 insulin: prescription for [...] continue to assess need -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 For after hours please [...] in chair Taken 05/03/2025 1400 by Kylee Goznalez RN Head of Bed (HOB) Positioning: HOB [...] lift device Taken 05/01/2025 1130 by Rocío Carndall RN Medication Review/Management: medications reviewed high-risk medications [...] from the original note were not included. [facility] Department of Surgery Division of Vascular [...] y.o. male who presented to [facility] 04/27/2025 with diabetic foot ulcer now [...] Note Gonzalo Smalls 49 y.o. male CSN: [id number] Admission: 04/27/2025 9:29 PM Primary Problem: Diabetic [...] No MDRO isolated 04/27/25 Blood culture NGTD [facility] Culture Data: - 04/25/25: Blood [...] PA-C Division of Infectious Diseases Available by Eye Phone History, assessment, and plan discussed with ID [...] Units Subcutaneous TID with meals Sarah Martinez, ELECTRONIC TEST TECHNICIAN 30 Units at 05/03/2520 Insulin Lispro (Admelog, HumaLOG) 100 UNIT/ML injection 6 Units 6 Units Subcutaneous BID PRN Sarah Martinez, ELECTRONIC TEST TECHNICIAN insulin NPH (Isophane) (HumuLIN N,NovoLIN N) injection 42 Units 42 Units Subcutaneous BID Silvia Martinezi P, ELECTRONIC TEST TECHNICIAN 42 Units at 05/03/25 0919 ipratropium-albuterol [...] Days * Progress Notes - Sarah Martinez, ELECTRONIC TEST TECHNICIAN - 05/03/2025 7:55 AM EDT Endocrine [...] continue to assess need -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 For after hours please [...] from the original note were not included. [facility] Department of Surgery Division of Vascular [...] degrees Note: See recs Patient evaluated by [facility] nurse, individualized recommendations placed and [...] No MDRO isolated 04/27/25 Blood culture NGTD [facility] Culture Data: - 04/25/25: Blood [...] PA-C Division of Infectious Diseases Available by Eye Phone History, assessment, and plan discussed with ID [...] Units 42 Units Subcutaneous BID Sarah Martinez, ELECTRONIC TEST TECHNICIAN ipratropium-albuterol (Duo-Neb) 0.5-2.5 mg/3 mL nebulizer solution [...] Note Gonzalo Smalls 49 y.o. male CSN: [id number] Room/Bed 117/117A Nutrition evaluation type: assessment Reason [...] at bedside. 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 No known unintentional weight changes, UBW 570#. [...] Weight Evaluation: Extreme Obesity (BMI > 40) [place] Body Weight (kg): 80.9 Percent [place] Body Weight: 311 Adjusted Body Weight (kg): [...] Regular Adult Carbohydrate Restriction: Consistent CHO 1 (5185-3577 Steven, 65 g/meal) Adult Sodium Restriction: 2,000 mg Na Percent Meals Eaten (%): 68% avg x 5 meals Diet Experience and Nutrition History: Diet Education Provided: Will monitor Pertinent home medications: Albuterol, Bumex, Insulin, Metformin, Ozempic, Aldactone Episcopal needs: Nutrition Focused Physical Exam: Physical exam [...] from the original note were not included. [facility] Department of Surgery Division of Vascular [...] snacking overnight while watching the games including Hiperos, goldfish, ritz crackers and other snacks -no [...] treatment -plan and management discussed with patient, ext js developer, bedside RN NOTE: -Patient utilizes U500 insulin pen at home. With the U500 pen, a conversion is not needed. Typically patient's required a 70% reduction in home U500 dosing. 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 For after hours please [...] and rec amputation vs transfer to [facility] for podiatry input about foot salvage : cannot transfer to [facility] given weight limit, pod team cannot [...] Note Gonzalo Smalls 49 y.o. male CSN: [id number] Admission: 04/27/2025 9:29 PM Primary Problem: Diabetic [...] from the original note were not included. [facility] Department of Surgery Division of Vascular [...] nursing staff. I have notified senior resident/attending hvac installation technician with any issues or concerns. Leidy Velasco [...] bony pathology, duration TBD - Will contact [facility] tomorrow to check on urine [...] PA-C Division of Infectious Diseases Available by Datam Chat History, assessment, and plan discussed with [...] mcg/mL infusion Intravenous PRN Muzic Og A, TUBING MACHINE TENDER 8 mcg at 05/01/25 0841 fentaNYL (Sublimaze) injection Intravenous PRN Muzic Og A, TUBING MACHINE TENDER 25 mcg at 05/01/25 0826 lactated Ringer's infusion Intravenous Continuous PRN Muzic, Og A, TUBING MACHINE TENDER New Bag at 05/01/25 0705 midazolam (Versed) injection Intravenous PRN Og Shha CRNA 1 mg at 05/01/25 0910 [2] Allergies Allergen Reactions Vancomycin Other - [...] continue to assess need -Follow-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 For after hours please [...] AM EDT Operative Note Date: 05/01/25 Location: [facility] Name: Gonzalo Smalls, : 1975, Diagnoses: Pre-op Diagnosis Other chronic osteomyelitis of right foot (CMS/HCC) Post-op Diagnosis Other chronic osteomyelitis of right foot (CMS/HCC) Procedure(s): Right 5th toe ray amputation Attending Surgeon(s): * Mary Vicente - Primary Gun Stocker(s): * Paula Martinez MD - Resident - [...] the wound bed. This extended more than mcc to the heel laterally. The underlying skin [...] taken to PACU in stable condition. Dr. Vicnete was present for all portions of the [...] and rec amputation vs transfer to [facility] for podiatry input about foot salvage : cannot transfer to [facility] given weight limit, pod team cannot [...] kg/m?? Labs and medications reviewed. 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 [facility] Department of Surgery Division of Vascular [...] is unable to be transferred to [facility] for Podiatry due to weight Edited [...] 2LNC at night, recurrent UTIswho presented to [facility] with nonhealing right foot wound. [...] kg/m?? Labs and medications reviewed. 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 For after hours please [...] Gonzalo Yehuda Smalls 49 y.o. male CSN: [id number] Admission: 04/27/2025 9:29 PM Primary Problem: Diabetic foot ulcer Round Cutter Operator reviewed chart and spoke with patient at bedside to complete this Initial Case Management Assessment. PCP: Malcolm Hayward APRN Emergency Contact: Extended Emergency Contact Information Primary Emergency Contact: Maggie Smalls Mobile Relation: Spouse Preferred language: Macedonian Senior Behavioral Scientist needed? No Insurance: Primary Visit Coverage Payer Plan Sponsor Code Group Number Group Name MARIA DGEE THIAGO SOTOMAYOR/[facility] [id number] [employer] Primary Visit Coverage Subscriber Subscriber ID Subscriber Name Subscriber N Subscriber Address [id number] GONZALO SMALLS [id number] [address] [address] Secondary Visit Coverage Payer Plan Sponsor Code Group Number Group Name MEDICARE MEDICARE A & B Secondary Visit Coverage Subscriber Subscriber ID Subscriber Name Subscriber N Subscriber Address [id number] GONZALO SMALLS [id number] [address] [place] [address] Patient information: Primary Caregiver: Self Support System: Immediate family Daily Living Activities: Functional Status: Minimum assistance Living Arrangements: Spouse/Significant other, Children (daughter) Type of Residence: Private residence, Single Level ([address]) [address] [address] Smoker in the Home?: No Current DME: [...] line dressing changes Living Will/Advance Directive/Power of Accounts Manager /Guardian: None Additional Comments: Patient admitted [...] from the original note were not included. [facility] Department of Surgery Division of Vascular [...] night, recurrent UTIs who presented to the [facility] on 04/27/2025 with right foot wound. He [...] Connections: Unknown (04/24/2023) Received from [facility] Family and Community Support Help with [...] History Administered Date(s) Administered Moderna COVID-19 Vaccine ([employer] Measurer) 12+ years 01/25/2021, 02/22/2021 Pneumococcal Conjugate PCV [...] a day. 09/05/21 Yes Provider, Historical HYDROcodone-acetaminophen (Gualala) 10-325 MG tablet Take 1 tablet by [...] Yes Provider, Historical Insulin Pen Needle (Pen [place]) 31G X 5 MM misc USE TO [...] 2LNC at night, recurrent UTIswho presented to [facility] with nonhealing right foot wound. [...] mL 3 mL Nebulization q4h PRN Sy DeL a Fuente APRN, DNP lidocaine (Uro-Jet) 2 % [...] by mouth 3 times a day. HYDROcodone-acetaminophen (Gualala) 10-325 MG tablet Take 1 tablet by [...] by mouth daily. Insulin Pen Needle (Pen [place]) 31G X 5 MM bone and joint [...] [X] Family [ ] Friend [ ] Senior Behavioral Scientist [X] Medical records HISTORY OF PRESENT ILLNESS: [...] and was treated in theemergency department at [facility] a few days ago where [...] in the ED 2-3 days ago at [facility]. I contacted OSH who report [...] a day. 09/05/21 Yes Provider, Historical HYDROcodone-acetaminophen (Gualala) 10-325 MG tablet Take 1 tablet by [...] Yes Provider, Historical Insulin Pen Needle (Pen [place]) 31G X 5 MM misc USE TO [...] Will follow-up blood and urine cultures from [facility] for further ID/susceptibilities, obtained 04/25 - Please obtain adult ID screening labs: Hep A IgG, Hep B sAb, Hep B sAg, and Hep B total core Ab - Plan of care and recommendations discussed with patient's primary provider Thank you for allowing us to participate in this patient's care. ID will follow. Janelle Phan PA-C Division of Infectious Diseases Available by Eye Phone History, assessment, and plan discussed with ID [...] La Fuente APRN, DENISE 150 mgat 04/28/25 3045 Current Outpatient Medications Medication Sig Dispense Refill [...] by mouth 3 times a day. HYDROcodone-acetaminophen (Gualala) 10-325 MG tablet Take 1 tablet by [...] by mouth daily. Insulin Pen Needle (Pen [place]) 31G X 5 MM misc USE TO [...] back pain 04/22/2019 Hypertension 02/18/2019 Morbid obesity ([facility]) 12/24/2016 Procedures Past Medical History Patient has a past medical history of Acute kidney injury (05/19/2024), Alcohol abuse, in remission, Anxiety disorder, unspecified, Arthritis, Atrial fibrillation ([facility]), CAP (community acquired pneumonia) (05/19/2024), Cellulitis [...] in Care Family/Caregiver Present: Yes Family/Caregiver: Spouse Senior Behavioral Scientist: Not Applicable Presentation Oxygen Therapy: None (Room [...] Needs assist Patient/Family Goals Return [facility] at [facility]. Objective Pain Pt reports 7/10 pain in [...] pain. Bed Mobility Exam: Rolling/Turning Level of [place]: Maximum assist (25% patient effort) Physical/Nonphysical Assist: Verbal Cues, Moderate cues Assistive Device: Bed rails, Other (ENVIRONMENTAL HEALTH MANAGER) Bed Mobility Exam: Scooting/Bridging Level of [place]: Maximum assist (25% patient's effort) (up in bed; Lester forward at EOB) Physical/Nonphysical Assist: Verbal Cues, Moderate cues Assistive Device: Bed rails Bed Mobility Exam: Supine to Sit Level of [place]: Maximum assist (25% patient's effort) Physical/Nonphysical Assist: Verbal Cues, Moderate cues, Set-up required, Additional assist utilized for safety Assistive Device: Other (ENVIRONMENTAL HEALTH MANAGER) Bed Mobility Exam: Sit to Supine Level of [place]: Maximum assist (25% patient's effort) Physical/Nonphysical Assist: [...] space Standardized Assessments Standardized Assessments Standardized Assessments: [facility] 6-Clicks Mobility Assessment [facility] 6-Clicks Mobility Assessment Difficulty patient has [...] climbing 3-5 steps with a railing?: Unable [facility] 6-Clicks Mobility Assessment Total : 8 [...] THERAPY EVALUATION PATIENT DATA Patient Name Gonzalo M Smalls Session Date 04/28/2025 Total Time 26 [...] remission, Anxiety disorder, unspecified, Arthritis, Atrial fibrillation ([facility]/H[facility]), CAP (community acquired pneumonia) (05/19/2024), Cellulitis [...] CARE Subjective Pt reports Visitors Present Spouse Senior Behavioral Scientist (if applicable) PRESENTATION Oxygen Room Air Telemetry [...] help from Spouse Level of Mobility Mobility [place] History of Falls ADL Performance ADL Performance: [...] Mobility Bed Mobility Exam: Rolling/Turning Level of [place]: Maximum assist (25% patient effort) Physical/Nonphysical Assist: Verbal Cues, Moderate cues Assistive Device: Bed rails, Other (ENVIRONMENTAL HEALTH MANAGER) Bed Mobility Exam: Scooting/Bridging Level of [place]: Maximum assist (25% patient's effort) (up in bed; [place] forward at EOB) Physical/Nonphysical Assist: Verbal Cues, Moderate cues Assistive Device: Bed rails Bed Mobility Exam: Supine to Sit Level of [place]: Maximum assist (25% patient's effort) Physical/Nonphysical Assist: Verbal Cues, Moderate cues, Set-up required, Additional assist utilized for safety Assistive Device: Other (ENVIRONMENTAL HEALTH MANAGER) Bed Mobility Exam: Sit to Supine Level of [place]: Maximum assist (25% patient's effort) Physical/Nonphysical Assist: [...] POC an d discharge recommendations. 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 For after hours please [...] by mouth 3 times a day. HYDROcodone-acetaminophen (Gualala) 10-325 MG tablet Take 1 tablet by [...] by mouth daily. Insulin Pen Needle (Pen [place]) 31G X 5 MM misc USE TO [...] 04/28/2025 6:09 AM EDTAssociated Order(s): [facility] Images from the original note were not included. Consult to [facility] Consult performed by: Sy De La [...] times a day. 09/05/21 Provider, Historical HYDROcodone-acetaminophen (Gualala) 10-325 MG tablet Take 1 tablet by mouth every 6 hours as needed. Provider, Historical insulin NPH-insulin regular (NovoLIN 70/30 FlexPen) (70-30) 100 UNIT/ML injection pen Inject 90 Units under the skin 3 times a day before meals. FURTHER REFILLS WILL BE PROVIDED UPON ATTENDANCE OF NEXT OFFICE VISIT 03/29/25 02/22/25 Divine Archer APRN Insulin Pen Needle (Pen [place]) 31G X 5 MM [facility] USE TO INJECT INSULIN 3 TIMES [...] Value Units Date/Time Blood Culture (Aerobic/Anaerobet Set) [[id number]] Collected: 04/27/252215 Order Status: Completed Specimen: Blood, Venous Updated: 04/28/25111 Culture Culture in lab Blood Culture (Aerobic/Anaerobet Set) [[id number]] Collected: 04/27/256 Order Status: Completed Specimen: Blood, [...] warmth, chills, vomiting. History provided by: Patient aerial photograph interpreter used: No I agree with the [...] baseline. Comments: Awake Psychiatric: Behavior: Behavior normal. [place] Coma Scale Score: 15 ED Course & [...] records from his previous hospital visit at [facility] which showed he was being treated [...] Ordered Status Ordering Provider 04/28/25541 Consult to [facility] Once Specialty: Internal Medicine Provider: (Not [...] of Pseudomonas coverage. I spoke with the utility bill collection clerk to tryto get records from [facility] to see why he was [...] by me. Suman Natarajan DO Resident 04/28/25 0616 Suman Natarajan DO Resident 05/04/25 1221 I [...] Anxiety disorder, unspecified Anxiety Arthritis Atrial fibrillation ([facility]) CAP (community acquired pneumonia) 05/19/2024 Cellulitis [...] Red man syndrome Jessa Law MD 05/07/25 8693 * ED Triage Notes - Francisco Javier Hansen RN - 04/27/2025 7:16 PM EDT Pt endorsing diabetic wound to his R foot x2-3 months. documented in this encounter Plan of Treatment Upcoming Encounters Date Type Department Care Team (Late st Contact Info) Description 06/22/2025 1:40 PM EST Office Visit [facility] [address] [place] [address] Mary Vicente MD [address] [place] [address] 06/23/2025 8:00 AM EST Office Visit [facility] [address] [place] [address] Sheila Marcano PA [address] [place] [address] Scheduled Orders Name Type Priority Associated Diagnoses [...] - 99 mg/dL 05/18/2025 8:11 AM EST [facility] Comment:Accuracy of a glucos e result [...] for testing. Comment 05/18/2025 8:11 AM EST [facility] Jailer ID Char Hinojosa 05/18/2025 8:11 AM EST [facility] Device ID [id number] 05/18/2025 8:11 AM EST [facility] Specimen Type POC Capillary 05/18/2025 8:11 AM EST [facility] Blood Capillary blood specimen / Unknown 05/18/2025 8:09 AM EST 05/18/2025 8:11 AM EST Kazar Rodrick Goyal DO LAB POINT OF CARE TE ST DOCKED DEVICE UNSOLICITED RESULTS Final Result Performing Organization Address City/State/[facility] Co de Phone Number [facility] [address] [place] [address] * (ABNORMAL) POCT glucose meter (05/17/2025 7:54 [...] 05/17/2025 7:55 PM EST [facility] Jailer ID Ron Lal 7:55 PM EST [facility] Device ID [id number] 05/17/2025 7:55 PM EST [facility]ALTH[facility]ARE [facility] Specimen Type POC Capillary 05/17/2025 7:55 PM EST [facility] Blood Capillary blood specimen / Unknown 05/17/2025 7:54 PM EST 05/17/2025 7:55 PM EST Umar R Jay Jay DO LAB POINT OF CARE TE ST DOCKED DEVICE UNSOLICITED RESULTS Final Result Performing Organization Address City/[facility] Co de Phone Number [facility] [address] [place] [address] * (ABNORMAL) POCT glucose meter (05/17/2025 5:13 PM EST) POCT Glucose 186(H) 74 - 99 mg/dL 05/17/2025 5:14 PM EST [facility] Comment:Accuracy of a glucos e result [...] 05/17/2025 5:14 PM EST [facility] Jailer ID Char Hinojosa 05/17/2025 5:14 PM EST [facility] Device ID [id number] 05/17/2025 5:14 PM EST [facility] Specimen Type POC Capillary 05/17/2025 5:14 PM EST [facility] Blood Capillary blood specimen / Unknown 05/17/2025 5:13 PM EST 05/17/2025 5:14 PM EST Umar R Jay Jay DO LAB POINT OF CARE TE ST DOCKED DEVICE UNSOLICITED RESULTS Final Result Performing Organization Address City/[facility]/ZIP Co de Phone Number [facility] [address] [place] [address] * (ABNORMAL) POCT glucose meter (05/17/2025 1:01 PM EST) Pathologist [facility] POCT Glucose 191(H) 74 - 99 mg/dL 05/31/2025 3:12 PM EST [facility] Comment:Accuracy of a glucos e result [...] for testing. Comment 05/31/2025 3:12 PM EST [facility] Jailer ID Char Hinojosa 05/31/2025 3:12 PM EST [facility] Device ID [id number] 05/31/2025 3:12 PM EST [facility] Specimen Type POC Capillary 05/31/2025 3:12 PM EST [facility] Blood Capillary blood specimen / Unknown 05/17/2025 1:01 PM EST 05/31/2025 3:12 PM EST [facility] R Jay Jay DO LAB POINT OF CARE TE ST DOCKED DEVICE UNSOLICITED RESULTS Final Result Performing Organization Address City/State/[facility] Co de Phone Number [facility] [address] [place], [place] [id number] * ECHO, ADULT TRANSTHORACIC COMPLETE W/ CONTRAST (05/17/2025 9:51 AM EST) [facility] BSA 3.30 m2 HANK ISCV Height [...] Ao Diam 37 mm HANK ISCV PA ME(ACCEL) 24.6 mmHg HANK ISCV LV mean PG [...] is no recent study available for direct [id number] comparison. Left Ventricle The left ventricle is [...] is no recent study available for direct [id number]-[id number] comparison. Wily Goyal DO CV ECHO PROCEDURES Final Result * (ABNORMAL) POCT glucose meter (05/17/2025 8:52 AM EST) POCT Glucose 225(H) 74 - 99 mg/dL 05/31/2025 3:12 PM EST [facility] Comment:Accuracy of a glucos e result [...] for testing. Comment 05/31/2025 3:12 PM EST [facility] Jailer ID Char Hinojosa 05/31/2025 3:12 PM EST [facility] Device ID [id number] 05/31/2025 3:12 PM EST [facility] Specimen Type POC Capillary 05/31/2025 3:12 PM EST [facility] Blood Capillary blood specimen / Unknown 05/17/2025 8:52 AM EST 05/31/2025 3:12 PM EST [facility] R Jay Jay DO LAB POINT OF CARE TE ST DOCKED DEVICE UNSOLICITED RESULTS Final Result [facility] [address] [place] [address] * (ABNORMAL) POCT glucose meter (05/16/2025 9:28 PM EST) POCT Glucose 199(H) 74 - 99 mg/dL 05/31/2025 3:12 PM EST [facility] Comment:Accuracy of a glucos e result [...] 05/31/2025 3:12 PM EST [facility] Jailer ID Jamal Soriano 3:12 PM EST [facility] Device ID [id number] 05/31/2025 3:12 PM EST [facility] Specimen Type POC Capillary 05/31/2025 3:12 PM EST [facility] Blood Capillary blood specimen / Unknown 05/16/2025 9:28 PM EST 05/31/2025 3:12 PM EST Wily Goyal DO LAB POINT OF CARE TE ST DOCKED DEVICE UNSOLICITED RESULTS Final Result Performing Organization Address City/State/[facility] de Phone Number [facility] [address] [place] [address] * (ABNORMAL) POCT glucose meter (05/16/2025 5:37 PM EST) [facility] Signature POCT Glucose 283(H) 74 - 99 [...] 05/16/2025 5:39 PM EST [facility] Jailer ID Char Hinojosa 05/16/2025 5:39 PM EST [facility] Device ID [id number] 05/16/2025 5:39 PM EST [facility] Specimen Type POC Capillary 05/16/2025 5:39 PM EST [facility] Blood Capillary blood specimen / Unknown 05/16/2025 5:37 PM EST 05/16/2025 5:39 PM EST us Umar R Jay Jay DO LAB POINT OF CARE TE ST DOCKED DEVICE UNSOLICITED RESULTS Final Result Performing Organization Address City/[facility]/ZIP Co de Phone Number [facility] [address] [place] [address] * ECG Adult (05/16/2025 3:33 PM EST) EKG DIAGNOSIS CLASS Abnormal MUSE ECG Ventricular Rate 58 BPM MUSE ECG Atrial Rate 58 BPM MUSE ECG ME Interval 184 ms MUSE ECG QRSD Interval 158 ms MUSE ECG QT Interval 496 ms MUSE ECG QTC Interval 486 ms MUSE ECG P [place] 30 degrees MUSE ECG R [place] -35 degrees MUSE ECG T Wave [place] -5 degrees MUSE ECG Diagnosis Sinus bradycardia [...] PM EST 05/18/2025 12:15 AM EST us Wily Goyal DO ECG ORDERABLES Final Result Performing Organization Address City/[facility] Co de Phone Number MUSE ECG * (ABNORMAL) POCT glucose meter (05/16/2025 12:06 PM EST) Pathologist [facility] POCT Glucose 161(H) 74 - [...] 05/16/2025 12:07 PM EST [facility] Jailer ID Char Hinojosa 05/16/2025 12:07 PM EST [facility] Device ID [id number] 05/16/2025 12:07 PM EST [facility] Specimen Type POC Capillary 05/16/2025 12:07 PM EST [facility] Blood Capillary blood specimen / Unknown 05/16/2025 12:06 PM EST 05/16/2025 12:07 PM EST us Selin Lee MD LAB POINT OF CARE TE ST DOCKED DEVICE UNSOLICITED RESULTS Final Result Performing Organization Address [facility] de Phone Number [facility] [address] [place] [address] * (ABNORMAL) POCT glucose meter (05/16/2025 8:17 AM EST) [facility] POCT Glucose 168(H) 74 - 99 mg/dL [...] 05/16/2025 8:21 AM EST [facility] Jailer ID Char Hinojosa 05/16/2025 8:21 AM EST [facility] Device ID [id number] 05/16/2025 8:21 AM EST [facility] Specimen Type POC Capillary 05/16/2025 8:21 AM EST [facility] Blood Capillary blood specimen / Unknown 05/16/2025 8:17 AM EST 05/16/2025 8:21 AM EST Selin Lee MD LAB POINT OF CARE TE ST DOCKED DEVICE UNSOLICITED RESULTS Final Result Performing Organization Address [facility] Co de Phone Number [facility] [address] [place] [address] * (ABNORMAL) CBC and Differential (05/16/2025 4:08 AM EST) [facility] WBC Count 7.97 3.70 - 10.30 10*3/uL LAB HEMATOLOGY METHOD 05/16/2025 4:26 AM EST [facility] RBC Count 4.27(L) 4.60 - 6.10 10*6/uL LAB HEMATOLOGY METHOD 05/16/2025 4:26 AM [facility] HGB 9.5(L) 13.7 - 17.5 g/dL LAB HEMATOLOGY METHOD 05/16/2025 4:26 AM [facility] HCT 31.6(L) 40.0 - 51.0 % LAB HEMATOLOGY METHOD 05/16/2025 4:26 AM [facility] Platelet Count 264 155 - 369 10*3/uL LAB HEMATOLOGY METHOD 05/16/2025 4:26 AM EST [facility] MCV 74(L) 79 - 98 fL LAB HEMATOLOGY METHOD 05/16/2025 4:26 AM [facility] MCH 22.2(L) 26.0 - 32.0 pg LAB HEMATOLOGY METHOD 05/16/2025 4:26 AM [facility] MCHC 30.1(L) 30.7 - 35.5 g/dL LAB HEMATOLOGY METHOD 05/16/2025 4:26 AM [facility] RDW 17.9(H) 11.5 - 14.5 % LAB HEMATOLOGY METHOD 05/16/2025 4:26 AM [facility] MPV 9.2 8.8 - 12.5 fL LAB HEMATOLOGY METHOD 05/16/2025 4:26 AM [facility] nRBC 0.0 <=0.0 per 100 WBCs LAB HEMATOLOGY METHOD 05/16/2025 4:26 AM [facility] Differential Type Automated LAB HEMATOLOGY METHOD 05/16/2025 4:26 AM [facility] Neutrophils % 67 % LAB HEMATOLOGY METHOD 05/16/2025 4:26 AM [facility] Lymphocytes % 16 % LAB HEMATOLOGY METHOD 05/16/2025 4:26 AM [facility] Monocytes % 12 % LAB HEMATOLOGY METHOD 05/16/2025 4:26 AM [facility] Eosinophils % 3 % LAB HEMATOLOGY METHOD 05/16/2025 4:26 AM [facility] Basophils % 1 % LAB HEMATOLOGY METHOD 05/16/2025 4:26 AM [facility] Immature Granulocytes % 1 % LAB HEMATOLOGY METHOD 05/16/2025 4:26 AM [facility] Neutrophils Absolute 5.39 1.60 - 6.10 10*3/uL LAB HEMATOLOGY METHOD 05/16/2025 4:26 AM [facility] Lymphocytes Absolute 1.30 1.20 - [...] ORDERABLES Final Re sult Performing Organization Address City/[facility]/ZIP Co de Phone Number [facility] [address] [place] [address] * (ABNORMAL) Magnesium, Plasma (05/16/2025 4:08 AM EST) Magnesium, Plasma 1.8(L) 1.9 - 2.4 mg/dL 05/16/2025 4:48 AM EST [facility] Blood Venous blood specimen / Unknown Venipuncture / Unknown 05/16/2025 4:08 AM EST 05/16/2025 4:16 AM EST us Selin Lee MD LAB BLOOD ORDERABLES Final Re sult Performing Organization Address City/[facility]/ZIP Co de Phone Number [facility] [address] [place] [address] * (ABNORMAL) Basic Metabolic Panel, Plasma (05/16/2025 [...] sult [facility] [address] [place] [address] * Phosphorus, Plasma (05/16/2025 4:08 AM EST) Phosphorus, Plasma 3.7 2.5 - 4.5 mg/dL 05/16/2025 4:48 AM EST [facility] Blood Venous blood specimen / Unknown Venipuncture / Unknown 05/16/2025 4:08 AM EST 05/16/2025 4:16 AM EST us Selin Lee MD LAB BLOOD ORDERABLES Final Re sult Performing Organization Address City/[facility]/ZIP Co de Phone Number [facility] [address] [place] [address] * (ABNORMAL) POCT glucose meter (05/15/2025 8:00 [...] 05/15/2025 8:02 PM EST [facility] Jailer ID ShannanTimo salcedo 8:02 PM EST [facility] Device ID [id number] 05/15/2025 8:02 PM EST [facility] Specimen Type POC Capillary 05/15/2025 8:02 PM EST [facility] Blood Capillary blood specimen / Unknown 05/15/2025 8:00 PM EST 05/15/2025 8:02 PM EST us Selin Lee MD LAB POINT OF CARE TE ST DOCKED DEVICE UNSOLICITED RESULTS Final Result Performing Organization Address City/[facility]/ZIP Co de Phone Number [facility] [address] [place] [address] * (ABNORMAL) POCT glucose meter (05/15/2025 4:52 [...] Comment 05/15/2025 4:53 PM EST [facility] Jailer ID Char Hinojosa 05/15/2025 4:53 PM EST [facility] Device ID [id number] 05/15/2025 4:53 PM EST [facility] Specimen Type POC Capillary 05/15/2025 4:53 PM EST [facility] Blood Capillary blood specimen / Unknown 05/15/2025 4:52 PM EST 05/15/2025 4:53 PM EST us Selin Lee MD LAB POINT OF CARE TE ST DOCKED DEVICE UNSOLICITED RESULTS Final Result Performing Organization Address City/State/[facility] Co de Phone Number [facility] [address] [place] [address] * (ABNORMAL) POCT glucose meter (05/15/2025 12:46 PM EST) [facility] Signature POCT Glucose 233(H) 74 - 99 mg/dL 05/15/2025 12:48 PM EST [facility] Comment:Accuracy of a glucos e [...] Comment 05/15/2025 12:48 PM EST [facility] Jailer ID Santy Garcia 05/15/2025 12:48 PM EST [facility] Device ID [id number] 05/15/2025 12:48 PM EST [facility] Specimen Type POC Capillary 05/15/2025 12:48 PM EST [facility] Blood Capillary blood specimen / Unknown 05/15/2025 12:46 PM EST 05/15/2025 12:48 PM EST us Selin Lee MD LAB POINT OF CARE TE ST DOCKED DEVICE UNSOLICITED RESULTS Final Result Performing Organization Address City/[facility]/ZIP Co de Phone Number [facility] [address] [place] [address] * (ABNORMAL) POCT glucose meter (05/15/2025 11:31 [...] for testing. Comment 05/15/2025 11:33 AM EST [facility] Jailer ID Char Hinojosa 05/15/2025 11:33 AM EST [facility] Device ID [id number] 05/15/2025 11:33 AM EST [facility] Specimen Type POC Capillary 05/15/2025 11:33 AM EST [facility] Blood Capillary blood specimen / Unknown 05/15/2025 11:31 AM EST 05/15/2025 11:33 AM EST Selin Lee MD LAB POINT OF CARE TE ST DOCKED DEVICE UNSOLICITED RESULTS Final Result Performing Organization Address City/[facility] Co de Phone Number [facility] [address] [place] [address] * (ABNORMAL) POCT glucose meter (05/15/2025 8:12 [...] 05/15/2025 8:14 AM EST [facility] Jailer ID Char Hinojosa 05/15/2025 8:14 AM EST [facility] Device ID [id number] 05/15/2025 8:14 AM EST [facility] Specimen Type POC Capillary 05/15/2025 8:14 AM EST [facility] Blood Capillary blood specimen / Unknown 05/15/2025 8:12 AM EST 05/15/2025 8:14 AM EST Selin Lee MD LAB POINT OF CARE TE ST DOCKED DEVICE UNSOLICITED RESULTS Final Result [facility] [address] [place] [address] * (ABNORMAL) CBC and Differential (05/15/2025 2:24 [...] fL LAB HEMATOLOGY METHOD 05/15/2025 2:41 AM [facility] nRBC 0.0 <=0.0 per 100 WBCs LAB HEMATOLOGY METHOD 05/15/2025 2:41 AM [facility] Differential Type Automated LAB HEMATOLOGY METHOD 05/15/2025 2:41 AM [facility] Neutrophils % 71 % LAB HEMATOLOGY METHOD 05/15/2025 2:41 AM [facility] Lymphocytes % 14 % LAB HEMATOLOGY METHOD 05/15/2025 2:41 AM [facility] Monocytes % 11 % LAB HEMATOLOGY METHOD 05/15/2025 2:41 AM [facility] Eosinophils % 3 % LAB HEMATOLOGY METHOD 05/15/2025 2:41 AM [facility] Basophils % 1 % LAB HEMATOLOGY METHOD 05/15/2025 2:41 AM [facility] Immature Granulocytes % 0 % LAB HEMATOLOGY METHOD 05/15/2025 2:41 AM [facility] Neutrophils Absolute 6.25(H) 1.60 - 6.10 10*3/uL LAB HEMATOLOGY METHOD 05/15/2025 2:41 AM [facility] Lymphocytes Absolute 1.27 1.20 - 3.90 10*3/uL LAB HEMATOLOGY METHOD 05/15/2025 2:41 AM [facility] Monocytes Absolute 0.95(H) 0.30 - 0.90 10*3/uL LAB HEMATOLOGY METHOD 05/15/2025 2:41 AM [facility] Eosinophils Absolute 0.27 0.00 - 0.50 10*3/uL LAB HEMATOLOGY METHOD 05/15/2025 2:41 AM [facility] Basophils Absolute 0.04 0.00 - 0.10 10*3/uL LAB HEMATOLOGY METHOD 05/15/2025 2:41 AM [facility] Immature Granulocytes Absolute 0.03 0.00 - 0.06 10*3/uL LAB HEMATOLOGY METHOD 05/15/2025 2:41 AM [facility] Blood Venous blood specimen / Unknown Venipuncture / Unknown 05/15/2025 2:24 AM EST 05/15/2025 2:33 AM EST [facility] - 05/15/2025 2:41 AM EST Therapeutic decision making should be based on absolute values, rather than percentages. us Selin Lee MD LAB BLOOD ORDERABLES Final Re sult Performing Organization Address City/[facility]/ZIP Co de Phone Number [facility] [address] [place] [address] * (ABNORMAL) Magnesium, Plasma (05/15/2025 2:24 AM EST) Magnesium, Plasma 1.8(L) 1.9 - 2.4 mg/dL 05/15/2025 3:03 AM EST [facility] Blood Venous blood specimen / Unknown Venipuncture / Unknown 05/15/2025 2:24 AM EST 05/15/2025 2:32 AM EST us Selin Lee MD LAB BLOOD ORDERABLES Final Re sult Performing Organization Address [facility] Co de Phone Number [facility] [address] [place] [address] * (ABNORMAL) Basic Metabolic Panel, Plasma (05/15/2025 [...] Final Re sult Performing Organization Address [facility] Co de Phone Number [facility] [address] [place] [address] * Phosphorus, Plasma (05/15/2025 2:24 AM EST) Phosphorus, Plasma 3.7 2.5 - 4.5 mg/dL 05/15/2025 3:03 AM EST [facility] Blood Venous blood specimen / Unknown Venipuncture / Unknown 05/15/2025 2:24 AM EST 05/15/2025 2:32 AM EST us Selin Lee MD LAB BLOOD ORDERABLES Final Re sult Performing Organization Address City/[facility] Co de Phone Number [facility] [address] [place] [address] * (ABNORMAL) POCT glucose meter (05/14/2025 8:09 PM EST) POCT Glucose 194(H) 74 - 99 mg/dL 05/14/2025 8:11 PM EST [facility] Comment:Accuracy of a glucos e [...] 05/14/2025 8:11 PM EST [facility] Jailer ID Stella Coleman 05/14/20 8:11 PM EST [facility] Device ID [id number] 05/14/2025 8:11 PM EST [facility] Specimen Type POC Capillary 05/14/2025 8:11 PM EST [facility] Blood Capillary blood specimen / Unknown 05/14/2025 8:09 PM EST 05/14/2025 8:11 PM EST us Selin Lee MD LAB POINT OF CARE TE ST DOCKED DEVICE UNSOLICITED RESULTS Final Result Performing Organization Address City/[facility] Co de Phone Number [facility] [address] [place] [address] * (ABNORMAL) POCT glucose meter (05/14/2025 5:10 PM EST) [facility] Signature POCT Glucose 320(H) 74 - 99 mg/dL 05/14/2025 5:13 PM EST [facility] Comment:Accuracy of a glucos e [...] Comment 05/14/2025 5:13 PM EST [facility] Jailer ID Dunia Montgomery 05/14/2025 5:13 PM EST [facility] Device ID [id number] 05/14/2025 5:13 PM EST [facility] Specimen Type POC Capillary 05/14/2025 5:13 PM EST [facility] Blood Capillary blood specimen / Unknown 05/14/2025 5:10 PM EST 05/14/2025 5:13 PM EST us Selin Lee MD LAB POINT OF CARE TE ST DOCKED DEVICE UNSOLICITED RESULTS Final Result Performing Organization Address City/[facility]/ZIP Co de Phone Number [facility] [address] [place] [address] * (ABNORMAL) POCT glucose meter (05/14/2025 12:15 PM EST) Pathologist [facility] POCT Glucose 260(H) 74 - 99 mg/dL [...] 05/14/2025 4:51 PM EST [facility] Jailer ID Dunia Montgomery 05/14/2025 4:51 PM EST [facility] Device ID [id number] 05/14/2025 4:51 PM EST [facility] Specimen Type POC Capillary 05/14/2025 4:51 PM EST [facility] Blood Capillary blood specimen / Unknown 05/14/2025 12:15 PM EST 05/14/2025 4:51 PM EST Selin Lee MD LAB POINT OF CARE TE ST DOCKED DEVICE UNSOLICITED RESULTS Final Result Performing Organization Address City/State/[facility] Co de Phone Number [facility] [address] [place] [address] * (ABNORMAL) POCT glucose meter (05/14/2025 8:30 AM EST) [facility] POCT Glucose 321(H) 74 - 99 [...] 05/14/2025 8:33 AM EST [facility] Jailer ID Dunia Montgomery 05/14/2025 8:33 AM EST [facility] Device ID [id number] 05/14/2025 8:33 AM EST [facility] Specimen Type POC Capillary 05/14/2025 8:33 AM EST [facility] Blood Capillary blood specimen / Unknown 05/14/2025 8:30 AM EST 05/14/2025 8:33 AM EST Selin Lee MD LAB POINT OF CARE TE ST DOCKED DEVICE UNSOLICITED RESULTS Final Result Performing Organization Address City/[facility]/ZIP Co de Phone Number [facility] [address] [place] [address] * (ABNORMAL) POCT glucose meter (05/14/2025 4:49 AM EST) Pathologist [facility] POCT Glucose 306(H) 74 - 99 mg/dL 05/31/2025 3:12 PM EST [facility] Comment:Accuracy of a glucos e result [...] for testing. Comment 05/31/2025 3:12 PM EST [facility] Jailer ID Asiya Nix 025 3:12 PM EST [facility] Device ID [id number] 05/31/2025 3:12 PM EST [facility] Specimen Type POC Capillary 05/31/2025 3:12 PM EST [facility] Blood Capillary blood specimen / Unknown 05/14/2025 4:49 AM EST 05/31/2025 3:12 PM EST Wily Goyal DO LAB POINT OF CARE TE ST DOCKED DEVICE UNSOLICITED RESULTS Final Result Performing Organization Address City/[facility]/ZIP Co de Phone Number [facility] [address] [place] [address] * (ABNORMAL) CBC and Differential (05/14/2025 1:45 [...] AM EDT 05/14/2025 2:24 AM EST Narrative [facility] - 05/14/2025 2:47 AM EST Therapeutic decision making should be based on absolute values, rather than percentages. us Selin Lee MD LAB BLOOD ORDERABLES Final Re sult Performing Organization Address [facility]/ZIP Co de Phone Number [facility] [address] [place] [address] * (ABNORMAL) Magnesium, Plasma (05/14/2025 1:45 AM EDT) Magnesium, Plasma 1.7(L) 1.9 - 2.4 mg/dL 05/14/2025 2:58 AM EST [facility] Blood Venous blood specimen / Unknown Venipuncture / Unknown 05/14/2025 1:45 AM EDT 05/14/2025 2:25 AM EST us Selin Lee MD LAB BLOOD ORDERABLES Final Re sult Performing Organization Address City/[facility]/ZIP Co de Phone Number [facility] [address] [place] [address] * (ABNORMAL) Basic Metabolic Panel, Plasma (05/14/2025 [...] sult [facility] [address] [place] [address] * Phosphorus, Plasma (05/14/2025 1:45 AM EDT) [facility] Phosphorus, Plasma 3.3 2.5 - 4.5 mg/dL 05/14/2025 2:58 AM EST [facility] Blood Venous blood specimen / Unknown Venipuncture / Unknown 05/14/2025 1:45 AM EDT 05/14/2025 2:25 AM EST us Selin eLe MD LAB BLOOD ORDERABLES Final Re sult [facility] [address] [place] [address] * (ABNORMAL) POCT glucose meter (05/13/2025 7:59 PM EDT) [facility] POCT Glucose 257(H) 74 - 99 [...] Comment 05/31/2025 3:12 PM EST [facility] Jailer ID Stella Coleman 05/31/20 3:12 PM EST [facility] Device ID [id number] 05/31/2025 3:12 PM EST [facility] Specimen Type POC Capillary 05/31/2025 3:12 PM EST [facility] Blood Capillary blood specimen / Unknown 05/13/2025 7:59 PM EDT 05/31/2025 3:12 PM EST us Wily Goyal DO LAB POINT OF CARE TE ST DOCKED DEVICE UNSOLICITED RESULTS Final Result Performing Organization Address City/[facility]/ZIP Co de Phone Number [facility] [address] [place] [address] * (ABNORMAL) POCT glucose meter (05/13/2025 4:58 PM EDT) [facility] POCT Glucose 217(H) 74 - 99 [...] 05/13/2025 5:00 PM EDT [facility] Jailer ID Priyanka Negrete 05/13/20 5:00 PM EDT [facility] Device ID [id number] 05/13/2025 5:00 PM EDT [facility] Specimen Type POC Capillary 05/13/2025 5:00 PM EDT [facility] Blood Capillary blood specimen / Unknown 05/13/2025 4:58 PM EDT 05/13/2025 5:00 PM EDT Selin Lee MD LAB POINT OF CARE TE ST DOCKED DEVICE UNSOLICITED RESULTS Final Result [facility] [address] [place] [address] * (ABNORMAL) POCT glucose meter (05/13/2025 11:37 AM EDT) [facility] POCT Glucose 255(H) 74 - 99 [...] 05/13/2025 11:41 AM EDT [facility] Jailer ID Priyanka Negrete 05/13/20 11:41 AM EDT [facility] Device ID [id number] 05/13/2025 11:41 AM EDT [facility] Specimen Type POC Capillary 05/13/2025 11:41 AM EDT [facility] Blood Capillary blood specimen / Unknown 05/13/2025 11:37 AM EDT 05/13/2025 11:41 AM EDT Selin Lee MD LAB POINT OF CARE TE ST DOCKED DEVICE UNSOLICITED RESULTS Final Result Performing Organization Address [facility] Co de Phone Number [facility] [address] [place] [address] * (ABNORMAL) POCT glucose meter (05/13/2025 7:42 AM EDT) [facility] POCT Glucose 233(H) 74 - 99 [...] Comment 05/13/2025 7:45 AM EDT [facility] Jailer ID Priyanka Negrete 05/13/20 7:45 AM EDT [facility] Device ID [id number] 05/13/2025 7:45 AM EDT [facility] Specimen Type POC Capillary 05/13/2025 7:45 AM EDT [facility] Blood Capillary blood specimen / Unknown 05/13/2025 7:42 AM EDT 05/13/2025 7:45 AM EDT Selin Lee MD LAB POINT OF CARE TE ST DOCKED DEVICE UNSOLICITED RESULTS Final Result Performing Organization Address City/[facility] Co de Phone Number [facility] [address] [place] [address] * (ABNORMAL) CBC and Differential (05/13/2025 3:54 AM EDT) Pathologist [facility] WBC Count 7.92 3.70 - 10.30 10*3/uL [...] Final Re sult Performing Organization Address [facility]/ZIP Co de Phone Number [facility] [address] [place] [address] * Magnesium, Plasma (05/13/2025 3:54 AM EDT) Magnesium, Plasma 1.9 1.9 - 2.4 mg/dL 05/13/2025 4:28 AM EDT [facility] Blood Venous blood specimen / Unknown Venipuncture / Unknown 05/13/2025 3:54 AM EDT 05/13/2025 4:01 AM EDT us Selin Lee MD LAB BLOOD ORDERABLES Final Re sult Performing Organization Address City/[facility]/ZIP Co de Phone Number [facility] [address] [place] [address] * (ABNORMAL) Basic Metabolic Panel, Plasma (05/13/2025 [...] sult [facility] [address] [place] [address] * Phosphorus, Plasma (05/13/2025 3:54 AM EDT) Pathologist [facility] Phosphorus, Plasma 3.3 2.5 - 4.5 mg/dL 05/13/2025 4:28 AM EDT [facility] Blood Venous blood specimen / Unknown Venipuncture / Unknown 05/13/2025 3:54 AM EDT 05/13/2025 4:01 AM EDT us Selin Lee MD LAB BLOOD ORDERABLES Final Re sult [facility] [address] [place] [address] * (ABNORMAL) POCT glucose meter (05/12/2025 7:40 PM EDT) [facility] POCT Glucose 248(H) 74 - 99 [...] 05/12/2025 7:42 PM EDT [facility] Jailer ID Stella Coleman 05/12/20 7:42 PM EDT [facility] Device ID [id number] 05/12/2025 7:42 PM EDT [facility] Specimen Type POC Capillary 05/12/2025 7:42 PM EDT [facility] Blood Capillary blood specimen / Unknown 05/12/2025 7:40 PM EDT 05/12/2025 7:42 PM EDT us Selin Lee MD LAB POINT OF CARE TE ST DOCKED DEVICE UNSOLICITED RESULTS Final Result [facility] [address] [place] [address] * (ABNORMAL) POCT glucose meter (05/12/2025 4:36 PM EDT) [facility] POCT Glucose 235(H) 74 - 99 [...] 05/12/2025 4:38 PM EDT [facility] Jailer ID Char Hinojosa 05/12/2025 4:38 PM EDT [facility] Device ID [id number] 05/12/2025 4:38 PM EDT [facility] Specimen Type POC Capillary 05/12/2025 4:38 PM EDT [facility] Blood Capillary blood specimen / Unknown 05/12/2025 4:36 PM EDT 05/12/2025 4:38 PM EDT Selin Lee MD LAB POINT OF CARE TE ST DOCKED DEVICE UNSOLICITED RESULTS Final Result Performing Organization Address City/State/[facility] Co de Phone Number [facility] [address] [place] [address] * (ABNORMAL) POCT glucose meter (05/12/2025 11:30 AM EDT) [facility] POCT Glucose 315(H) 74 - 99 [...] 05/12/2025 11:32 AM EDT [facility] Jailer ID Char Hinojosa 05/12/2025 11:32 AM EDT [facility] Device ID [id number] 05/12/2025 11:32 AM EDT [facility]ALTH[facility]ARE [facility] Specimen Type POC Capillary 05/12/2025 11:32 AM EDT [facility] Blood Capillary blood specimen / Unknown 05/12/2025 11:30 AM EDT 05/12/2025 11:32 AM EDT us Selin Lee MD LAB POINT OF CARE TE ST DOCKED DEVICE UNSOLICITED RESULTS Final Result Performing Organization Address City/[facility]/ZIP Co de Phone Number [facility] [address] [place] [address] * (ABNORMAL) POCT glucose meter (05/12/2025 8:08 AM EDT) Pathologist [facility] POCT Glucose 274(H) 74 - 99 mg/dL 05/12/2025 8:10 AM EDT [facility] [facility] Comment:Accuracy of a glucos e result [...] for testing. Comment 05/12/2025 8:10 AM EDT [facility] Jailer ID Char Hinojosa 05/12/2025 8:10 AM EDT [facility] Device ID [id number] 05/12/2025 8:10 AM EDT [facility] Specimen Type POC Capillary 05/12/2025 8:10 AM EDT [facility] Blood Capillary blood specimen / Unknown 05/12/2025 8:08 AM EDT 05/12/2025 8:10 AM EDT us Selin Lee MD LAB POINT OF CARE TE ST DOCKED DEVICE UNSOLICITED RESULTS Final Result [facility] [address] [place] [address] * (ABNORMAL) CBC and Differential (05/12/2025 3:56 [...] Re sult [facility] [address] [place] [address] * (ABNORMAL) Magnesium, Plasma (05/12/2025 3:56 AM EDT) Magnesium, Plasma 1.7(L) 1.9 - 2.4 mg/dL 05/12/2025 4:36 AM EDT [facility] Blood Venous blood specimen / Unknown Venipuncture / Unknown 05/12/2025 3:56 AM EDT 05/12/2025 4:03 AM EDT us Selin Lee MD LAB BLOOD ORDERABLES Final Re sult [facility] [address] [place] [address] * (ABNORMAL) Basic Metabolic Panel, Plasma (05/12/2025 [...] ORDERABLES Final Re sult Performing Organization Address City/[facility] Co de Phone Number [facility] [address] [place] [address] * Phosphorus, Plasma (05/12/2025 3:56 AM EDT) [facility] Phosphorus, Plasma 2.8 2.5 - 4.5 mg/dL 05/12/2025 4:36 AM EDT [facility] Blood Venous blood specimen / Unknown Venipuncture / Unknown 05/12/2025 3:56 AM EDT 05/12/2025 4:03 AM EDT us Selin Lee MD LAB BLOOD ORDERABLES Final Re sult Performing Organization Address [facility] de Phone Number [facility] [address] [place] [address] * (ABNORMAL) POCT glucose meter (05/12/2025 3:11 AM EDT) [facility] POCT Glucose 348(H) 74 - 99 [...] 05/12/2025 3:13 AM EDT [facility] Jailer ID Joel Carmona 05/12/2025 3:13 AM EDT [facility] Device ID [id number] 05/12/2025 3:13 AM EDT [facility] Specimen Type POC Capillary 05/12/2025 3:13 AM EDT [facility] Blood Capillary blood specimen / Unknown 05/12/2025 3:11 AM EDT 05/12/2025 3:13 AM EDT us Selin Lee MD LAB POINT OF CARE TE ST DOCKED DEVICE UNSOLICITED RESULTS Final Result Performing Organization Address City/[facility]/ZIP Co de Phone Number [facility] [address] [place] [address] * (ABNORMAL) POCT glucose meter (05/11/2025 7:57 PM EDT) [facility] POCT Glucose 272(H) 74 - 99 [...] 05/11/2025 8:02 PM EDT [facility] Jailer ID Mis Carmonaopalgus 05/11/2025 8:02 PM EDT [facility] Device ID [id number] 05/11/2025 8:02 PM EDT [facility] Specimen Type POC Capillary 05/11/2025 8:02 PM EDT [facility] Blood Capillary blood specimen / Unknown 05/11/2025 7:57 PM EDT 05/11/2025 8:02 PM EDT Selin Lee MD LAB POINT OF CARE TE ST DOCKED DEVICE UNSOLICITED RESULTS Final Result [facility] [address] [place] [address] * (ABNORMAL) POCT glucose meter (05/11/2025 5:05 PM EDT) [facility] POCT Glucose 258(H) 74 - 99 [...] 05/11/2025 5:07 PM EDT [facility] Jailer ID Char Hinojosa 05/11/2025 5:07 PM EDT [facility] Device ID [id number] 05/11/2025 5:07 PM EDT [facility] Specimen Type POC Capillary 05/11/2025 5:07 PM EDT [facility] Blood Capillary blood specimen / Unknown 05/11/2025 5:05 PM EDT 05/11/2025 5:07 PM EDT us Seiln Lee MD LAB POINT OF CARE TE ST DOCKED DEVICE UNSOLICITED RESULTS Final Result Performing Organization Address City/[facility] Co de Phone Number [facility] [address] [place] [address] * (ABNORMAL) POCT glucose meter (05/11/2025 12:13 [...] Comment 05/11/2025 12:15 PM EDT [facility] Jailer ID Char Hinojosa 05/11/2025 12:15 PM EDT [facility] Device ID [id number] 05/11/2025 12:15 PM EDT [facility] Specimen Type POC Capillary 05/11/2025 12:15 PM EDT [facility] Blood Capillary blood specimen / Unknown 05/11/2025 12:13 PM EDT 05/11/2025 12:15 PM EDT us Selin Lee MD LAB POINT OF CARE TE ST DOCKED DEVICE UNSOLICITED RESULTS Final Result Performing Organization Address City/[facility]/ZIP Co de Phone Number [facility] [address] [place] [address] * (ABNORMAL) POCT glucose meter (05/11/2025 7:57 [...] Comment 05/11/2025 7:59 AM EDT [facility] Jailer ID Char Hinojosa 05/11/2025 7:59 AM EDT [facility] Device ID [id number] 05/11/2025 7:59 AM EDT [facility] Specimen Type POC Capillary 05/11/2025 7:59 AM EDT [facility] Blood Capillary blood specimen / Unknown 05/11/2025 7:57 AM EDT 05/11/2025 7:59 AM EDT us Selin Lee MD LAB POINT OF CARE TE ST DOCKED DEVICE UNSOLICITED RESULTS Final Result Performing Organization Address City/State/[facility] Co de Phone Number [facility] [address] [place] [address] * ECG Adult (05/11/2025 6:11 AM EDT) EKG DIAGNOSIS CLASS Abnormal MUSE ECG Ventricular Rate 59 BPM MUSE ECG Atrial Rate 59 BPM MUSE ECG ME Interval 176 ms MUSE ECG QRSD Interval 160 ms MUSE ECG QT Interval 520 ms MUSE ECG QTC Interval 514 ms MUSE ECG P [place] 21 degrees MUSE ECG R [place] -32 degrees MUSE ECG T Wave [place] -9 degrees MUSE ECG Diagnosis Sinus bradycardia [...] MUSE ECG Diagnosis Confirmed by Tone Lainez ([id number]) on 05/12/2025 11:35:23 AM MUSE ECG 05/11/2025 6:11 AM EDT 05/12/2025 11:35 AM EDT us Selin Lee MD ECG ORDERABLES Final Result MUSE ECG * (ABNORMAL) POCT glucose meter (05/11/2025 3:42 AM EDT) [facility] POCT Glucose 336(H) 74 - 99 [...] Comment 05/11/2025 3:45 AM EDT [facility] Jailer ID Kaylin Barron 05/11/2025 3:45 AM EDT [facility] Device ID [id number] 05/11/2025 3:45 AM EDT [facility] Specimen Type POC Capillary 05/11/2025 3:45 AM EDT [facility] Blood Capillary blood specimen / Unknown 05/11/2025 3:42 AM EDT 05/11/2025 3:45 AM EDT us Selin Lee MD LAB POINT OF CARE TE ST DOCKED DEVICE UNSOLICITED RESULTS Final Result Performing Organization Address City/[facility]/ZIP Co de Phone Number [facility] [address] [place] [address] * (ABNORMAL) CBC and Differential (05/11/2025 3:24 AM EDT) [facility] WBC Count 6.72 3.70 - 10.30 [...] ORDERABLES Final Re sult Performing Organization Address City/[facility]/ZIP Co de Phone Number [facility] [address] [place] [address] * (ABNORMAL) Magnesium, Plasma (05/11/2025 3:24 AM EDT) Magnesium, Plasma 1.8(L) 1.9 - 2.4 mg/dL 05/11/2025 3:58 AM EDT [facility] Blood Venous blood specimen / Unknown Venipuncture / Unknown 05/11/2025 3:24 AM EDT 05/11/2025 3:30 AM EDT Selin Lee MD LAB BLOOD ORDERABLES Final Re sult Performing Organization Address City/[facility]/ZIP Co de Phone Number [facility] [address] [place] [address] * (ABNORMAL) Basic Metabolic Panel, Plasma (05/11/2025 [...] Re sult [facility] [address] [place] [address] * Phosphorus, Plasma (05/11/2025 3:24 AM EDT) Phosphorus, Plasma 3.1 2.5 - 4.5 mg/dL 05/11/2025 3:58 AM EDT [facility] Blood Venous blood specimen / Unknown Venipuncture / Unknown 05/11/2025 3:24 AM EDT 05/11/2025 3:30 AM EDT us Selin Lee MD LAB BLOOD ORDERABLES Final Re sult Performing Organization Address City/[facility]/ZIP Co de Phone Number [facility] [address] [place] [address] * (ABNORMAL) POCT glucose meter (05/10/2025 7:07 [...] Comment 05/10/2025 7:10 PM EDT [facility] Jailer ID Char Hinojosa 05/10/2025 7:10 PM EDT [facility] Device ID [id number] 05/10/2025 7:10 PM EDT [facility] Specimen Type POC Capillary 05/10/2025 7:10 PM EDT [facility] Blood Capillary blood specimen / Unknown 05/10/2025 7:07 PM EDT 05/10/2025 7:10 PM EDT us Selin Lee MD LAB POINT OF CARE TE ST DOCKED DEVICE UNSOLICITED RESULTS Final Result Performing Organization Address City/[facility]/ZIP Co de Phone Number [facility] [address] [place] [address] * (ABNORMAL) POCT glucose meter (05/10/2025 4:55 [...] Comment 05/10/2025 4:57 PM EDT [facility] Jailer ID Char Hinojosa 05/10/2025 4:57 PM EDT [facility] Device ID [id number] 05/10/2025 4:57 PM EDT [facility] Specimen Type POC Capillary 05/10/2025 4:57 PM EDT [facility] Blood Capillary blood specimen / Unknown 05/10/2025 4:55 PM EDT 05/10/2025 4:57 PM EDT Selin Lee MD LAB POINT OF CARE TE ST DOCKED DEVICE UNSOLICITED RESULTS Final Result Performing Organization Address City/State/[facility] Co de Phone Number [facility] [address] [place] [address] * (ABNORMAL) POCT glucose meter (05/10/2025 11:41 AM EDT) [facility] POCT Glucose 348(H) 74 - 99 [...] 05/10/2025 11:43 AM EDT [facility] Jailer ID Char Hinojosa 05/10/2025 11:43 AM EDT [facility] Device ID [id number] 05/10/2025 11:43 AM EDT [facility] Specimen Type POC Capillary 05/10/2025 11:43 AM EDT [facility] Blood Capillary blood specimen / Unknown 05/10/2025 11:41 AM EDT 05/10/2025 11:43 AM EDT Selin Lee MD LAB POINT OF CARE TE ST DOCKED DEVICE UNSOLICITED RESULTS Final Result [facility] [address] [place] [address] * ECG 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/2025 11:20 AM EDT) EKG DIAGNOSIS CLASS Abnormal MUSE ECG Ventricular Rate 65 BPM MUSE ECG Atrial Rate 65 BPM MUSE ECG ME Interval 198 ms MUSE ECG QRSD Interval 154 ms MUSE ECG QT Interval 508 ms MUSE ECG QTC Interval 528 ms MUSE ECG P [place] 66 degrees MUSE ECG R [place] -39 degrees MUSE ECG T Wave [place] -16 degrees MUSE ECG Diagnosis Normal sinus rhythm with sinus arrhythmia MUSE ECG Diagnosis Left axis deviation MUSE ECG Diagnosis Right bundle branch block MUSE ECG Diagnosis Minimal voltage criteria for LVH, may be normal variant ( R in aVL ) MUSE ECG Diagnosis Abnormal ECG MUSE ECG Diagnosis MUSE ECG Diagnosis Confirmed by Manas Mccauley ([id number]) on 05/10/2025 3:20:48 PM MUSE ECG 05/10/2025 11:2 0 AM EDT 05/10/2025 3:20 PM EDT Selin Lee MD ECG ORDERABLES Final Result Performing Organization Address City/[facility] Co de Phone Number MUSE ECG * (ABNORMAL) POCT glucose meter (05/10/2025 7:30 AM EDT) [facility] POCT Glucose 332(H) 74 - 99 [...] 05/10/2025 7:33 AM EDT [facility] Jailer ID Char Hinojosa 05/10/2025 7:33 AM EDT [facility] Device ID [id number] 05/10/2025 7:33 AM EDT [facility] Specimen Type POC Capillary 05/10/2025 7:33 AM EDT [facility] Blood Capillary blood specimen / Unknown 05/10/2025 7:30 AM EDT 05/10/2025 7:33 AM EDT Selin Lee MD LAB POINT OF CARE TE ST DOCKED DEVICE UNSOLICITED RESULTS Final Result Performing Organization Address City/[facility] Co de Phone Number [facility] [address] [place] [address] * ECG 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/2025 6:14 AM EDT) EKG DIAGNOSIS CLASS Abnormal MUSE ECG Ventricular Rate 56 BPM MUSE ECG Atrial Rate 56 BPM MUSE ECG ME Interval 196 ms MUSE ECG QRSD Interval 164 ms MUSE ECG QT Interval 508 ms MUSE ECG QTC Interval 490 ms MUSE ECG P [place] 74 degrees MUSE ECG R [place] -33 degrees MUSE ECG T Wave [place] -10 degrees MUSE ECG Diagnosis Sinus bradycardia with sinus arrhythmia MUSE ECG Diagnosis Left axis deviation MUSE ECG Diagnosis Right bundle branch block MUSE ECG Diagnosis T wave abnormality, consider lateral ischemia MUSE ECG Diagnosis Abnormal ECG MUSE ECG Diagnosis MUSE ECG Diagnosis Confirmed by Manas Mccauley ([id number]) on 05/10/2025 2:45:37 PM MUSE ECG 05/10/2025 6:14 AM EDT 05/10/2025 2:45 PM EDT Selin Lee MD ECG ORDERABLES Final Result Performing Organization Address [facility] Co de Phone Number MUSE ECG * [...] Comment 05/10/2025 4:02 AM EDT [facility] Jailer ID Maribell Saeed 4:02 AM EDT [facility] Device ID [id number] 05/10/2025 4:02 AM EDT [facility] Specimen Type POC Capillary 05/10/2025 4:02 AM EDT [facility] Blood Capillary blood specimen / Unknown 05/10/2025 4:00 AM EDT 05/10/2025 4:02 AM EDT Diane Guzman MD LAB POINT OF CARE T EST DOCKED DEVICE UNSOLICITED RESULTS Final Result Performing Organization Address [facility] de Phone Number [facility] [address] [place] [address] * (ABNORMAL) POCT glucose meter (05/09/2025 8:37 PM EDT) [facility] POCT Glucose 296(H) 74 - 99 [...] Comment 05/09/2025 8:39 PM EDT [facility] Jailer ID Maribell Saeed 8:39 PM EDT [facility] Device ID [id number] 05/09/2025 8:39 PM EDT [facility] Specimen Type POC Capillary 05/09/2025 8:39 PM EDT [facility] Blood Capillary blood specimen / Unknown 05/09/2025 8:37 PM EDT 05/09/2025 8:39 PM EDT Diane Guzman MD LAB POINT OF CARE T EST DOCKED DEVICE UNSOLICITED RESULTS Final Result Performing Organization Address City/[facility] Co de Phone Number [facility] [address] [place] [address] * Magnesium (05/09/2025 5:54 PM EDT) Magnesium, Plasma 1.9 1.9 - 2.4 mg/dL 05/09/2025 6:56 PM EDT [facility] Blood Venous blood specimen / Unknown Venipuncture / Unknown 05/09/2025 5:54 PM EDT 05/09/2025 6:25 PM EDT us Selin Lee MD LAB BLOOD ORDERABLES Final Re sult [facility] [address] [place] [address] * (ABNORMAL) Basic metabolic panel (05/09/2025 5:54 [...] ORDERABLES Final Re sult Performing Organization Address City/[facility]/ZIP Co de Phone Number [facility] [address] [place] [address] * (ABNORMAL) POCT glucose meter (05/09/2025 5:17 PM EDT) [facility] POCT Glucose 398(H) 74 - 99 [...] Comment 05/09/2025 5:20 PM EDT [facility] Jailer ID Char Hinojosa 05/09/2025 5:20 PM EDT [facility] Device ID [id number] 05/09/2025 5:20 PM EDT [facility] Specimen Type POC Capillary 05/09/2025 5:20 PM EDT [facility] Blood Capillary blood specimen / Unknown 05/09/2025 5:17 PM EDT 05/09/2025 5:20 PM EDT us Diane Guzman MD LAB POINT OF CARE T EST DOCKED DEVICE UNSOLICITED RESULTS Final Result Performing Organization Address City/[facility]/ZIP Co de Phone Number [facility] [address] [place] [address] * ECG Adult (05/09/2025 12:34 PM EDT) EKG DIAGNOSIS CLASS Abnormal MUSE ECG Ventricular Rate 75 BPM MUSE ECG Atrial Rate 75 BPM MUSE ECG ME Interval 176 ms MUSE ECG QRSD Interval 164 ms MUSE ECG QT Interval 454 ms MUSE ECG QTC Interval 506 ms MUSE ECG P [place] 70 degrees MUSE ECG R [place] -38 degrees MUSE ECG T Wave [place] 2 degrees MUSE ECG Diagnosis Normal sinus [...] glucose meter (05/09/2025 12:25 PM EDT) [facility] POCT Glucose 283(H) 74 - 99 mg/dL [...] 05/09/2025 12:27 PM EDT [facility] Jailer ID Dunia Montgomery 05/09/2025 12:27 PM EDT [facility] Device ID [id number] 05/09/2025 12:27 PM EDT [facility] Specimen Type POC Capillary 05/09/2025 12:27 PM EDT [facility] Blood Capillary blood specimen / Unknown 05/09/2025 12:25 PM EDT 05/09/2025 12:27 PM EDT Diane Guzman MD LAB POINT OF CARE T EST DOCKED DEVICE UNSOLICITED RESULTS Final Result [facility] [address] [place] [address] * (ABNORMAL) POCT glucose meter (05/09/2025 7:52 AM EDT) [facility]ologist [facility] POCT Glucose 306(H) 74 - 99 mg/dL [...] for testing. Comment 05/09/2025 7:54 AM EDT [facility] Jailer ID Char Hinojosa 05/09/2025 7:54 AM EDT [facility] Device ID [id number] 05/09/2025 7:54 AM EDT [facility] Specimen Type POC Capillary 05/09/2025 7:54 AM EDT [facility] Blood Capillary blood specimen / Unknown 05/09/2025 7:52 AM EDT 05/09/2025 7:54 AM EDT Diane Guzman MD LAB POINT OF CARE T EST DOCKED DEVICE UNSOLICITED RESULTS Final Result [facility] [address] [place] [address] * (ABNORMAL) POCT glucose meter (05/08/2025 11:54 PM EDT) Pathologist [facility] POCT Glucose 273(H) 74 - 99 mg/dL [...] 05/08/2025 11:56 PM EDT [facility] Jailer ID Kaylin Barron 05/08/2025 11:56 PM EDT [facility] Device ID [id number] 05/08/2025 11:56 PM EDT [facility] Specimen Type POC Capillary 05/08/2025 11:56 PM EDT [facility] Blood Capillary blood specimen / Unknown 05/08/2025 11:54 PM EDT 05/08/2025 11:56 PM EDT Diane Guzman MD LAB POINT OF CARE T EST DOCKED DEVICE UNSOLICITED RESULTS Final Result Performing Organization Address City/[facility] Co de Phone Number [facility] [address] [place] [address] * (ABNORMAL) POCT glucose meter (05/08/2025 7:33 [...] Comment 05/08/2025 7:35 PM EDT [facility] Jailer ID Kaylin Barron 05/08/2025 7:35 PM EDT [facility] Device ID [id number] 05/08/2025 7:35 PM EDT [facility] Specimen Type POC Capillary 05/08/2025 7:35 PM EDT [facility] Blood Capillary blood specimen / Unknown 05/08/2025 7:33 PM EDT 05/08/2025 7:35 PM EDT Diane Guzman MD LAB POINT OF CARE T EST DOCKED DEVICE UNSOLICITED RESULTS Final Result Performing Organization Address City/[facility]/ZIP Co de Phone Number [facility] [address] [place] [address] * (ABNORMAL) POCT glucose meter (05/08/2025 5:00 PM EDT) [facility] POCT Glucose 347(H) 74 - 99 [...] 05/08/2025 5:02 PM EDT [facility] Jailer ID Char Hinojosa 05/08/2025 5:02 PM EDT [facility] Device ID [id number] 05/08/2025 5:02 PM EDT [facility] Specimen Type POC Capillary 05/08/2025 5:02 PM EDT [facility] Blood Capillary blood specimen / Unknown 05/08/2025 5:00 PM EDT 05/08/2025 5:02 PM EDT Diane Guzman MD LAB POINT OF CARE T EST DOCKED DEVICE UNSOLICITED RESULTS Final Result Performing Organization Address City/State/[facility] Co de Phone Number [facility] [address] [place] [address] * (ABNORMAL) POCT glucose meter (05/08/2025 11:42 AM EDT) [facility] POCT Glucose 298(H) 74 - 99 [...] 05/08/2025 11:44 AM EDT [facility] Jailer ID Char Hinojosa 05/08/2025 11:44 AM EDT [facility] Device ID [id number] 05/08/2025 11:44 AM EDT [facility] Specimen Type POC Capillary 05/08/2025 11:44 AM EDT [facility] Blood Capillary blood specimen / Unknown 05/08/2025 11:42 AM EDT 05/08/2025 11:44 AM EDT Diane Guzman MD LAB POINT OF CARE T EST DOCKED DEVICE UNSOLICITED RESULTS Final Result Performing Organization Address City/[facility] Co de Phone Number [facility] [address] [place] [address] * (ABNORMAL) POCT glucose meter (05/08/2025 8:05 [...] for testing. Comment 05/08/2025 8:07 AM EDT [facility] Jailer ID Char Hinojosa 05/08/2025 8:07 AM EDT HEALTH[facility]ARE [facility] Device ID [id number] 05/08/2025 8:07 AM EDT [facility] Specimen Type POC Capillary 05/08/2025 8:07 AM EDT [facility] Blood Capillary blood specimen / Unknown 05/08/2025 8:05 AM EDT 05/08/2025 8:07 AM EDT Diane Guzman MD LAB POINT OF CARE T EST DOCKED DEVICE UNSOLICITED RESULTS Final Result Performing Organization Address City/[facility]/ZIP Co de Phone Number [facility] [address] [place] [address] * (ABNORMAL) POCT glucose meter (05/08/2025 3:56 [...] Comment 05/08/2025 3:58 AM EDT [facility] Jailer ID Stella Coleman 05/08/20 3:58 AM EDT [facility] Device ID [id number] 05/08/2025 3:58 AM EDT [facility] Specimen Type POC Capillary 05/08/2025 3:58 AM EDT [facility] Blood Capillary blood specimen / Unknown 05/08/2025 3:56 AM EDT 05/08/2025 3:58 AM EDT Diane Guzman MD LAB POINT OF CARE T EST DOCKED DEVICE UNSOLICITED RESULTS Final Result Performing Organization Address City/State/[facility] Co de Phone Number [facility] [address] [place] [address] * (ABNORMAL) POCT glucose meter (05/07/2025 8:14 PM EDT) [facility] POCT Glucose 392(H) 74 - 99 [...] Comment 05/07/2025 8:15 PM EDT [facility] Jailer ID Fela Coelho 05/07/2025 8:15 PM EDT [facility] Device ID [id number] 05/07/2025 8:15 PM EDT [facility] Specimen Type POC Capillary 05/07/2025 8:15 PM EDT [facility] Blood Capillary blood specimen / Unknown 05/07/2025 8:14 PM EDT 05/07/2025 8:15 PM EDT Diane Guzman MD LAB POINT OF CARE T EST DOCKED DEVICE UNSOLICITED RESULTS Final Result [facility] [address] [place] [address] * (ABNORMAL) POCT glucose meter (05/07/2025 5:10 PM EDT) [facility] POCT Glucose 411(H) 74 - 99 [...] Comment 05/07/2025 5:13 PM EDT [facility] Jailer ID Priyanka Negrete 05/07/20 5:13 PM EDT [facility] Device ID [id number] 05/07/2025 5:13 PM EDT [facility] Specimen Type POC Capillary 05/07/2025 5:13 PM EDT [facility] Blood Capillary blood specimen / Unknown 05/07/2025 5:10 PM EDT 05/07/2025 5:[address] [facility] Diane Guzman MD LAB POINT OF CARE T EST DOCKED DEVICE UNSOLICITED RESULTS Final Result Performing Organization Address City/[facility]/ZIP Co de Phone Number [facility] [address] [place] [address] * (ABNORMAL) POCT glucose meter (05/07/2025 12:04 PM EDT) [facility] POCT Glucose 350(H) 74 - 99 [...] 05/07/2025 12:10 PM EDT [facility] Jailer ID Priyanka Negrete 05/07/20 12:10 PM EDT [facility] Device ID [id number] 05/07/2025 12:10 PM EDT [facility] Specimen Type POC Capillary 05/07/2025 12:10 PM EDT [facility] Blood Capillary blood specimen / Unknown 05/07/2025 12:04 PM EDT 05/07/2025 12:10 PM EDT Diane Guzman MD LAB POINT OF CARE T EST DOCKED DEVICE UNSOLICITED RESULTS Final Result Performing Organization Address City/[facility] Co de Phone Number [facility] [address] [place] [address] * (ABNORMAL) POCT glucose meter (05/07/2025 7:41 AM EDT) Pathologist [facility] POCT Glucose 356(H) 74 - 99 mg/dL [...] Comment 05/07/2025 7:44 AM EDT [facility] Jailer ID Priyanka Negrete 05/07/20 7:44 AM EDT [facility] Device ID [id number] 05/07/2025 7:44 AM EDT [facility] Specimen Type POC Capillary 05/07/2025 7:44 AM EDT [facility] Blood Capillary blood specimen / Unknown 05/07/2025 7:41 AM EDT 05/07/2025 7:44 AM EDT Diane Guzman MD LAB POINT OF CARE T EST DOCKED DEVICE UNSOLICITED RESULTS Final Result Performing Organization Address City/[facility]/ZIP Co de Phone Number [facility] [address] [place] [address] * (ABNORMAL) POCT glucose meter (05/07/2025 3:41 AM EDT) [facility] POCT Glucose 407(H) 74 - 99 [...] Comment 05/07/2025 3:43 AM EDT [facility] Jailer ID YesseniaWon 05/07/2025 3:43 AM EDT [facility]ARE LAB Device ID [id number] 05/07/2025 3:43 AM EDT [facility] Specimen Type POC Capillary 05/07/2025 3:43 AM EDT [facility] Blood Capillary blood specimen / Unknown 05/07/2025 3:41 AM EDT 05/07/2025 3:43 AM EDT Diane Guzman MD LAB POINT OF CARE T EST DOCKED DEVICE UNSOLICITED RESULTS Final Result Performing Organization Address City/State/[facility] Co de Phone Number [facility] [address] [place] [address] * (ABNORMAL) POCT glucose meter (05/06/2025 8:01 PM EDT) [facility] POCT Glucose 324(H) 74 - 99 mg/dL 05/06/2025 8:02 PM EDT [facility] Comment:Accuracy of [...] 05/06/2025 8:02 PM EDT [facility] Jailer ID YesseniaWon 05/06/2025 8:02 PM EDT [facility] LAB Device ID [id number] 05/06/2025 8:02 PM EDT [facility] Specimen Type POC Capillary 05/06/2025 8:02 PM EDT [facility] Blood Capillary blood specimen / Unknown 05/06/2025 8:01 PM EDT 05/06/2025 8:02 PM EDT Diane Guzman MD LAB POINT OF CARE T EST DOCKED DEVICE UNSOLICITED RESULTS Final Result Performing Organization Address City/[facility] Co de Phone Number [facility] [address] [place] [address] * (ABNORMAL) POCT glucose meter (05/06/2025 4:40 PM EDT) [facility] POCT Glucose 212(H) 74 - 99 [...] Comment 05/06/2025 4:46 PM EDT [facility] Jailer ID Sherrell Navarro 05/06/2025 4:46 PM EDT HEALTHCARE LAB Device ID [id number] 05/06/2025 4:46 PM EDT [facility] Specimen Type POC Capillary 05/06/2025 4:46 PM EDT [facility] Blood Capillary blood specimen / Unknown 05/06/2025 4:40 PM EDT 05/06/2025 4:46 PM EDT Diane Guzman MD LAB POINT OF CARE T EST DOCKED DEVICE UNSOLICITED RESULTS Final Result Performing Organization Address City/[facility] Co de Phone Number HEALTHCARE LAB [address] [place] [address] * PSA, diagnostic (05/06/2025 12:27 PM EDT) [facility] PSA, Diagnostic, Serum 0.03 0.00 - 2.50 ng/mL 05/06/2025 1:10 PM EDT [facility] Blood Venous blood specimen / Unknown Venipuncture / Unknown 05/06/2025 12:27 PM EDT 05/06/2025 12:33 PM EDT Narrative [facility] - 05/06/2025 1:10 PM EDT Performed by Bella electrochemiluminescent immunoassay which is standardized against the PSA Likely Reference Standard (WHO 96/670). Results obtained with different test methods or kits cannot be used interchangeably. Diane Guzman MD LAB BLOOD ORDERABLES Final Result Performing Organization Address City/[facility]/ZIP Co de Phone Number [facility] [address] [place] [address] * (ABNORMAL) POCT glucose meter (05/06/2025 11:28 [...] Comment 05/06/2025 11:30 AM EDT HEALTHCARE LAB Jailer ID Sherrell Navarro 05/06/2025 11:30 AM EDT HEALTHCARE LAB Device ID [id number] 05/06/2025 11:30 AM EDT [facility]ALTHCARE LAB Specimen Type POC Capillary 05/06/2025 11:30 AM EDT [facility] Blood Capillary blood specimen / Unknown 05/06/2025 11:28 AM EDT 05/06/2025 11:30 AM EDT Diane Guzman MD LAB POINT OF CARE T EST DOCKED DEVICE UNSOLICITED RESULTS Final Result [facility] [address] [place] [address] * (ABNORMAL) POCT glucose meter (05/06/2025 8:13 [...] Comment 05/06/2025 8:23 AM EDT HEALTHCARE LAB Jailer ID Sherrell Navarro 05/06/2025 8:23 AM EDT HEALTHCARE LAB Device ID [id number] 05/06/2025 8:23 AM EDT [facility]ALTHCARE LAB Specimen Type POC Capillary 05/06/2025 8:23 AM EDT [facility]ARE [facility] Blood Capillary blood specimen / Unknown 05/06/2025 8:13 AM EDT 05/06/2025 8:23 AM EDT Diane Guzman MD LAB POINT OF CARE T EST DOCKED DEVICE UNSOLICITED RESULTS Final Result Performing Organization Address City/State/[facility] Co de Phone Number [facility] [address] [place] [address] * (ABNORMAL) POCT glucose meter (05/06/2025 3:09 AM EDT) [facility] Signature POCT Glucose 364(H) 74 - 99 [...] 05/06/2025 3:11 AM EDT [facility] Jailer ID Won Casas 05/06/2025 3:11 AM EDT HEALTHCARE LAB Device ID [id number] 05/06/2025 3:11 AM EDT HEALTHCARE LAB Specimen Type POC Capillary 05/06/2025 3:11 AM EDT HEALTH[facility]ARE LAB Blood Capillary blood specimen / Unknown 05/06/2025 3:09 AM EDT 05/06/2025 3:11 AM EDT Diane Guzman MD LAB POINT OF CARE T EST DOCKED DEVICE UNSOLICITED RESULTS Final Result Performing Organization Address City/[facility] Co de Phone Number HEALTHCARE LAB [address] [place] [address] * (ABNORMAL) POCT glucose meter (05/05/2025 8:19 [...] Comment 05/05/2025 8:20 PM EDT HEALTHCARE LAB Jailer ID Won Casas 05/05/2025 8:20 PM EDT HEALTHCARE LAB Device ID [id number] 05/05/2025 8:20 PM EDT [facility] Specimen Type POC Capillary 05/05/2025 8:20 PM EDT [facility] Blood Capillary blood specimen / Unknown 05/05/2025 8:19 PM EDT 05/05/2025 8:20 PM EDT Diane Guzman MD LAB POINT OF CARE T EST DOCKED DEVICE UNSOLICITED RESULTS Final Result Performing Organization Address City/[facility] Co de Phone Number HEALTHCARE LAB [address] [place] [address] * (ABNORMAL) POCT glucose meter (05/05/2025 5:09 [...] 05/05/2025 5:14 PM EDT [facility] Jailer ID Sherrell Navarro 05/05/2025 5:14 PM EDT [facility] Device ID [id number] 05/05/2025 5:14 PM EDT HEALTHCARE LAB Specimen Type POC Capillary 05/05/2025 5:14 PM EDT [facility]ALTH[facility]ARE [facility] Blood Capillary blood specimen / Unknown 05/05/2025 5:09 PM EDT 05/05/2025 5:14 PM EDT Diane Guzman MD LAB POINT OF CARE T EST DOCKED DEVICE UNSOLICITED RESULTS Final Result Performing Organization Address [facility] de Phone Number HEALTHCARE LAB [address] [place] [address] * (ABNORMAL) POCT glucose meter (05/05/2025 11:29 [...] Comment 05/05/2025 11:32 AM EDT HEALTHCARE LAB Jailer ID Sherrell Navarro 05/05/2025 11:32 AM EDT HEALTHCARE LAB Device ID [id number] 05/05/2025 11:32 AM EDT [facility] Specimen Type POC Capillary 05/05/2025 11:32 AM EDT [facility]ALTH[facility]ARE [facility] Blood Capillary blood specimen / Unknown 05/05/2025 11:29 AM EDT 05/05/2025 11:32 AM EDT us Diane Guzman MD LAB POINT OF CARE T EST DOCKED DEVICE UNSOLICITED RESULTS Final Result Performing Organization Address City/[facility] Co de Phone Number HEALTHCARE LAB [address] [place] [address] * (ABNORMAL) POCT glucose meter (05/05/2025 7:55 AM EDT) [facility] POCT Glucose 290(H) 74 - 99 [...] Comment 05/05/2025 7:57 AM EDT HEALTHCARE LAB Jailer ID Sherrell Navarro 05/05/2025 7:57 AM EDT HEALTHCARE LAB Device ID [id number] 05/05/2025 7:57 AM EDT HEALTHCARE LAB Specimen Type POC Capillary 05/05/2025 7:57 AM EDT [facility]ARE LAB Blood Capillary blood specimen / Unknown 05/05/2025 7:55 AM EDT 05/05/2025 7:57 AM EDT Diane Guzman MD LAB POINT OF CARE T EST DOCKED DEVICE UNSOLICITED RESULTS Final Result [facility] [address] [place] [address] * (ABNORMAL) POCT glucose meter (05/04/2025 7:35 PM EDT) [facility] POCT Glucose 236(H) 74 - 99 [...] 05/04/2025 7:37 PM EDT [facility] Jailer ID Kaylin Barron 05/04/2025 7:37 PM EDT [facility] Device ID [id number] 05/04/2025 7:37 PM EDT HEALTHCARE LAB Specimen Type POC Capillary 05/04/2025 7:37 PM EDT [facility]ARE [facility] Blood Capillary blood specimen / Unknown 05/04/2025 7:35 PM EDT 05/04/2025 7:37 PM EDT Diane Guzman MD LAB POINT OF CARE T EST DOCKED DEVICE UNSOLICITED RESULTS Final Result [facility] [address] [place] [address] * (ABNORMAL) POCT glucose meter (05/04/2025 4:51 [...] 05/04/2025 4:53 PM EDT [facility] Jailer ID Araceli Doran 025 4:53 PM EDT HEALTHCARE LAB Device ID [id number] 05/04/2025 4:53 PM EDT HEALTHCARE LAB Specimen Type POC Capillary 05/04/2025 4:53 PM EDT [facility] Blood Capillary blood specimen / Unknown 05/04/2025 4:51 PM EDT 05/04/2025 4:53 PM EDT Diane Guzman MD LAB POINT OF CARE T EST DOCKED DEVICE UNSOLICITED RESULTS Final Result [facility] [address] [place] [address] * (ABNORMAL) POCT glucose meter (05/04/2025 11:51 [...] Comment 05/04/2025 11:56 AM EDT HEALTHCARE LAB Jailer ID Araceli Doran 025 11:56 AM EDT HEALTHCARE LAB Device ID [id number] 05/04/2025 11:56 AM EDT HEALTHCARE LAB Specimen Type POC Capillary 05/04/2025 11:56 AM EDT [facility]ARE [facility] Blood Capillary blood specimen / Unknown 05/04/2025 11:51 AM EDT 05/04/2025 11:56 AM EDT Diane Guzman MD LAB POINT OF CARE T EST DOCKED DEVICE UNSOLICITED RESULTS Final Result Performing Organization Address City/State/[facility] Co de Phone Number [facility] [address] [place] [address] * (ABNORMAL) POCT glucose meter (05/04/2025 8:09 [...] Comment 05/04/2025 8:17 AM EDT HEALTHCARE LAB Jailer ID Araceli Doran 025 8:17 AM EDT HEALTHCARE LAB Device ID [id number] 05/04/2025 8:17 AM EDT HEALTHCARE LAB Specimen Type POC Capillary 05/04/2025 8:17 AM EDT HEALTH[facility]ARE LAB Blood Capillary blood specimen / Unknown 05/04/2025 8:09 AM EDT 05/04/2025 8:17 AM EDT Diane Guzman MD LAB POINT OF CARE T EST DOCKED DEVICE UNSOLICITED RESULTS Final Result Performing Organization Address City/[facility] de Phone Number HEALTHCARE LAB [address] [place] [address] * (ABNORMAL) POCT glucose meter (05/04/2025 4:44 AM EDT) Pathologist [facility] POCT Glucose 335(H) 74 - 99 mg/dL [...] Comment 05/04/2025 4:46 AM EDT HEALTHCARE LAB Jailer ID Kaylin Barron 05/04/2025 4:46 AM EDT HEALTHCARE LAB Device ID [id number] 05/04/2025 4:46 AM EDT [facility] Specimen Type POC Capillary 05/04/2025 4:46 AM EDT [facility] Blood Capillary blood specimen / Unknown 05/04/2025 4:44 AM EDT 05/04/2025 4:46 AM EDT Diane Guzman MD LAB POINT OF CARE T EST DOCKED DEVICE UNSOLICITED RESULTS Final Result Performing Organization Address City/[facility] Co de Phone Number [facility] [address] [place] [address] * (ABNORMAL) POCT glucose meter (05/03/2025 7:27 PM EDT) Pathologist [facility] POCT Glucose 331(H) 74 - 99 mg/dL [...] Comment 05/03/2025 7:33 PM EDT HEALTHCARE LAB Jailer ID Kaylin Barron 05/03/2025 7:33 PM EDT HEALTHCARE LAB Device ID [id number] 05/03/2025 7:33 PM EDT HEALTHCARE LAB Specimen Type POC Capillary 05/03/2025 7:33 PM EDT HEALTHCARE LAB Blood Capillary blood specimen / Unknown 05/03/2025 7:27 PM EDT 05/03/2025 7:33 PM EDT us Diane Guzman MD LAB POINT OF CARE T EST DOCKED DEVICE UNSOLICITED RESULTS Final Result [facility] [address] [place] [address] * (ABNORMAL) Comprehensive metabolic panel (05/03/2025 6:22 [...] BLOOD ORDERABLES Final Result Performing Organization Address City/State/[facility] Co de Phone Number [facility] [address] [place] [address] * Creatine Kinase (CK), Total (05/03/2025 6:22 PM EDT) Creatine Kinase, Plasma 54 49 - 320 U/L 05/03/2025 7:13 PM EDT [facility] Blood Venous blood specimen / Unknown Venipuncture / Unknown 05/03/2025 6:22 PM EDT 05/03/2025 6:38 PM EDT us Diane Guzman MD LAB BLOOD ORDERABLES Final Result Performing Organization Address City/[facility] Co de Phone Number [facility] [address] [place] [address] * (ABNORMAL) POCT glucose meter (05/03/2025 5:30 PM EDT) [facility] POCT Glucose 258(H) 74 - 99 [...] Comment 05/03/2025 5:33 PM EDT HEALTHCARE LAB Jailer ID Dunia Montgomery 05/03/2025 5:33 PM EDT HEALTHCARE LAB Device ID [id number] 05/03/2025 5:33 PM EDT [facility] Specimen Type POC Capillary 05/03/2025 5:33 PM EDT [facility] Blood Capillary blood specimen / Unknown 05/03/2025 5:30 PM EDT 05/03/2025 5:33 PM EDT Diane Guzman MD LAB POINT OF CARE T EST DOCKED DEVICE UNSOLICITED RESULTS Final Result Performing Organization Address [facility] de Phone Number [facility] [address] [place] [address] * (ABNORMAL) POCT glucose meter (05/03/2025 11:36 AM EDT) [facility] POCT Glucose 310(H) 74 - 99 [...] Comment 05/03/2025 11:38 AM EDT HEALTHCARE LAB Jailer ID Kindra Cardoza 05/03/2025 11:38 AM EDT HEALTHCARE LAB Device ID [id number] 05/03/2025 11:38 AM EDT HEALTHCARE LAB Specimen Type POC Capillary 05/03/2025 11:38 AM EDT HEALTHCARE LAB Blood Capillary blood specimen / Unknown 05/03/2025 11:36 AM EDT 05/03/2025 11:38 AM EDT Diane Guzman MD LAB POINT OF CARE T EST DOCKED DEVICE UNSOLICITED RESULTS Final Result Performing Organization Address City/[facility] Co de Phone Number HEALTHCARE LAB [address] [place] [address] * (ABNORMAL) POCT glucose meter (05/03/2025 8:09 AM EDT) [facility] POCT Glucose 339(H) 74 - 99 [...] Comment 05/03/2025 8:11 AM EDT HEALTHCARE LAB Jailer ID Dunia Montgomery 05/03/2025 8:11 AM EDT HEALTHCARE LAB Device ID [id number] 05/03/2025 8:11 AM EDT HEALTHCARE LAB Specimen Type POC Capillary 05/03/2025 8:11 AM EDT HEALTHCARE LAB Blood Capillary blood specimen / Unknown 05/03/2025 8:09 AM EDT 05/03/2025 8:11 AM EDT Diane Guzman MD LAB POINT OF CARE T EST DOCKED DEVICE UNSOLICITED RESULTS Final Result Performing Organization Address City/[facility] Co de Phone Number HEALTHCARE LAB [address] [place] [address] * (ABNORMAL) POCT glucose meter (05/03/2025 3:37 AM EDT) [facility] POCT Glucose 372(H) 74 - 99 [...] Comment 05/03/2025 3:40 AM EDT HEALTHCARE LAB Jailer ID Maribell Saeed 3:40 AM EDT [facility] Device ID [id number] 05/03/2025 3:40 AM EDT [facility] Specimen Type POC Capillary 05/03/2025 3:40 AM EDT [facility] Blood Capillary blood specimen / Unknown 05/03/2025 3:37 AM EDT 05/03/2025 3:40 AM EDT Diane Guzman MD LAB POINT OF CARE T EST DOCKED DEVICE UNSOLICITED RESULTS Final Result Performing Organization Address City/State/[facility] Co de Phone Number HEALTHCARE LAB [address] [place] [address] * (ABNORMAL) CBC and Differential (05/03/2025 3:16 AM EDT) [facility] WBC Count 6.86 3.70 - 10.30 [...] Resul t [facility] [address] [place] [address] * (ABNORMAL) Basic Metabolic Panel, Plasma (05/03/2025 [...] ORDERABLES Final Resul t Performing Organization Address City/[facility]/ZIP Co de Phone Number [facility] [address] [place] [address] * (ABNORMAL) Magnesium, Plasma (05/03/2025 3:16 AM EDT) Magnesium, Plasma 1.7(L) 1.9 - 2.4 mg/dL 05/03/2025 4:02 AM EDT [facility] Blood Venous blood specimen / Unknown Venipuncture / Unknown 05/03/2025 3:16 AM EDT 05/03/2025 3:24 AM EDT us Marjorie Myers MD LAB BLOOD ORDERABLES Final Resul t [facility] [address] [place] [address] * Phosphorus, Plasma (05/03/2025 3:16 AM EDT) Phosphorus, Plasma 3.6 2.5 - 4.5 mg/dL 05/03/2025 4:02 AM EDT [facility] Blood Venous blood specimen / Unknown Venipuncture / Unknown 05/03/2025 3:16 AM EDT 05/03/2025 3:24 AM EDT Marjorie Myers MD LAB BLOOD ORDERABLES Final Resul t Performing Organization Address City/[facility]/ZIP Co de Phone Number [facility] [address] [place] [address] * Hepatitis B Core Total Antibody IgG,IgM (05/03/2025 3:16 AM EDT) Hepatitis B Core Total Antibody IgG,IgM Negative Negative 05/03/2025 4:28 AM EDT [facility] Blood Venous blood specimen / Unknown Venipuncture / Unknown 05/03/2025 3:16 AM EDT 05/03/2025 3:24 AM EDT Diane Guzman MD LAB BLOOD ORDERABLES Final Result Performing Organization Address [facility] [place] [address] * Hepatitis B Surface Antigen (05/03/2025 3:16 AM EDT) Hepatitis B Surf Antigen Negative Negative 05/03/2025 4:28 AM EDT [facility] Blood Venous blood specimen / Unknown Venipuncture / Unknown 05/03/2025 3:16 AM EDT 05/03/2025 3:24 AM EDT Diane Guzman MD LAB BLOOD ORDERABLES Final Result Performing Organization Address City/[facility] Co de Phone Number [facility] [address] [place] [address] * Hepatitis B Surface Antibody, Quantitative (05/03/2025 [...] BLOOD ORDERABLES Final Result Performing Organization Address City/[facility] Co de Phone Number [address] [address] * Hepatitis A Antibody IgG (05/03/2025 3:16 AM EDT) [facility] Hepatitis A Antibody IgG Negative Negative 05/03/2025 4:28 AM EDT [facility] Blood Venous blood specimen / Unknown Venipuncture / Unknown 05/03/2025 3:16 AM EDT 05/03/2025 3:24 AM EDT us Diane Guzman MD LAB BLOOD ORDERABLES Final Result Performing Organization Address [facility] de Phone Number [facility] [address] [place] [address] * (ABNORMAL) POCT glucose meter (05/02/2025 8:48 PM EDT) [facility] POCT Glucose 325(H) 74 - 99 [...] 05/02/2025 8:50 PM EDT [facility] Jailer ID Maribell Saeed 8:50 PM EDT HEALTHCARE LAB Device ID [id number] 05/02/2025 8:50 PM EDT HEALTHCARE LAB Specimen Type POC Capillary 05/02/2025 8:50 PM EDT [facility]ALTH[facility]ARE LAB Blood Capillary blood specimen / Unknown 05/02/2025 8:48 PM EDT 05/02/2025 8:50 PM EDT Result Shannon Guzman MD LAB POINT OF CARE T EST DOCKED DEVICE UNSOLICITED RESULTS Final Result Performing Organization Address City/[facility] Co de Phone Number [facility] [address] [place] [address] * (ABNORMAL) POCT glucose meter (05/02/2025 4:30 PM EDT) [facility] POCT Glucose 250(H) 74 - 99 [...] Comment 05/02/2025 4:32 PM EDT HEALTHCARE LAB Jailer ID EfraínSebastián 4:32 PM EDT HEALTHCARE LAB Device ID [id number] 05/02/2025 4:32 PM EDT HEALTHCARE LAB Specimen Type POC Capillary 05/02/2025 4:32 PM EDT [facility] Blood Capillary blood specimen / Unknown 05/02/2025 4:30 PM EDT 05/02/2025 4:32 PM EDT Diane Guzman MD LAB POINT OF CARE T EST DOCKED DEVICE UNSOLICITED RESULTS Final Result Performing Organization Address City/[facility] Co de Phone Number [facility] [address] [place] [address] * Nasopharyngeal Respiratory Panel (05/02/2025 1:05 PM EDT) [facility] Nasopharyngeal Respiratory PCR Interpretation Not Detected [...] Respiratory PCR Panel is performed using the Withingslex instrument. This test is FDA approved for use with Nasopharyngeal swabs only. This test is used for clinical purposes. It should not be regarded as investigational or for research. The [facility] Clinical Microbiology Laboratory is certified under the Clinical Laboratory Improvement Amendments of 1988 (CLIA-88) as qualified to perform high complexity clinical laboratory testing. Diane Guzman MD LAB MICROBIOLOGY - GENERAL ORDERABLES Final Result [facility] [address] [place] [address] * (ABNORMAL) POCT glucose meter (05/02/2025 12:08 PM EDT) Pathologist [facility] POCT Glucose 278(H) 74 - 99 mg/dL 05/02/2025 12:10 PM EDT [facility] Comment:Accuracy [...] Comment 05/02/2025 12:10 PM EDT HEALTHCARE LAB Jailer ID EfraínSebastián 12:10 PM EDT HEALTHCARE LAB Device ID [id number] 05/02/2025 12:10 PM EDT HEALTHCARE LAB Specimen Type POC Capillary 05/02/2025 12:10 PM EDT [facility]ALTH[facility]ARE LAB Blood Capillary blood specimen / Unknown 05/02/2025 12:08 PM EDT 05/02/2025 12:10 PM EDT Diane Guzman MD LAB POINT OF CARE T EST DOCKED DEVICE UNSOLICITED RESULTS Final Result Performing Organization Address [facility] Co de Phone Number [facility] [address] [place] [address] * (ABNORMAL) POCT glucose meter (05/02/2025 8:11 AM EDT) [facility] POCT Glucose 283(H) 74 - 99 [...] Comment 05/02/2025 8:12 AM EDT HEALTHCARE LAB Jailer ID Sebastián eKnny 8:12 AM EDT HEALTHCARE LAB Device ID [id number] 05/02/2025 8:12 AM EDT HEALTHCARE LAB Specimen Type POC Capillary 05/02/2025 8:12 AM EDT [facility] Blood Capillary blood specimen / Unknown 05/02/2025 8:11 AM EDT 05/02/2025 8:12 AM EDT Diane Guzman MD LAB POINT OF CARE T EST DOCKED DEVICE UNSOLICITED RESULTS Final Result Performing Organization Address [facility] de Phone Number [facility] [address] [place] [address] * (ABNORMAL) POCT glucose meter (05/02/2025 4:01 AM EDT) [facility] POCT Glucose 320(H) 74 - 99 [...] 05/02/2025 4:03 AM EDT [facility] Jailer ID Stella Coleman 05/02/20 4:03 AM EDT HEALTHCARE LAB Device ID [id number] 05/02/2025 4:03 AM EDT HEALTHCARE LAB Specimen Type POC Capillary 05/02/2025 4:03 AM EDT [facility] Blood Capillary blood specimen / Unknown 05/02/2025 4:01 AM EDT 05/02/2025 4:03 AM EDT us Marjorie Myers MD LAB POINT OF CARE TE ST DOCKED DEVICE UNSOLICITED RESULTS Final Result [facility] [address] [place] [address] * (ABNORMAL) CBC and Differential (05/02/2025 3:10 [...] Resul t [facility] [address] [place] [address] * (ABNORMAL) Basic Metabolic Panel, Plasma (05/02/2025 [...] ORDERABLES Final Resul t Performing Organization Address City/[facility] Co de Phone Number [facility] [address] [place] [address] * (ABNORMAL) Magnesium, Plasma (05/02/2025 3:10 AM EDT) Magnesium, Plasma 1.6(L) 1.9 - 2.4 mg/dL 05/02/2025 3:45 AM EDT [facility] Blood Venous blood specimen / Unknown Venipuncture / Unknown 05/02/2025 3:10 AM EDT 05/02/2025 3:15 AM EDT us Marjorie Myers MD LAB BLOOD ORDERABLES Final Resul t Performing Organization Address City/[facility] Co de Phone Number [facility] [address] [place] [address] * Phosphorus, Plasma (05/02/2025 3:10 AM EDT) Phosphorus, Plasma 3.0 2.5 - 4.5 mg/dL 05/02/2025 3:45 AM EDT [facility] Blood Venous blood specimen / Unknown Venipuncture / Unknown 05/02/2025 3:10 AM EDT 05/02/2025 3:15 AM EDT us Marjorie Myers MD LAB BLOOD ORDERABLES Final Resul t Performing Organization Address City/[facility] Co de Phone Number [facility] [address] [place] [address] * Creatine Kinase (CK), Total (05/02/2025 3:10 AM EDT) Creatine Kinase, Plasma 50 49 - 320 U/L 05/02/2025 3:45 AM EDT [facility] Blood Venous blood specimen / Unknown Venipuncture / Unknown 05/02/2025 3:10 AM EDT 05/02/2025 3:15 AM EDT Marjorie Myers MD LAB BLOOD ORDERABLES Final Resul t [facility] [address] [place] [address] * (ABNORMAL) POCT glucose meter (05/01/2025 8:26 PM EDT) [facility] POCT Glucose 316(H) 74 - 99 [...] Comment 05/01/2025 8:27 PM EDT HEALTHCARE LAB Jailer ID Stella Coleman 05/01/20 8:27 PM EDT HEALTHCARE LAB Device ID [id number] 05/01/2025 8:27 PM EDT [facility]ALTHCARE LAB Specimen Type POC Capillary 05/01/2025 8:27 PM EDT [facility] Blood Capillary blood specimen / Unknown 05/01/2025 8:26 PM EDT 05/01/2025 8:27 PM EDT Marjorie Myers MD LAB POINT OF CARE TE ST DOCKED DEVICE UNSOLICITED RESULTS Final Result [facility] [address] [place] [address] * (ABNORMAL) POCT glucose meter (05/01/2025 5:55 PM EDT) [facility] POCT Glucose 294(H) 74 - 99 [...] 05/01/2025 5:57 PM EDT [facility] Jailer ID Sebastián Kenny 5:57 PM EDT [facility] Device ID [id number] 05/01/2025 5:57 PM EDT [facility] Specimen Type POC Capillary 05/01/2025 5:57 PM EDT [facility]ALTH[facility]ARE [facility] Blood Capillary blood specimen / Unknown 05/01/2025 5:55 PM EDT 05/01/2025 5:57 PM EDT us Marjorie Myers MD LAB POINT OF CARE TE ST DOCKED DEVICE UNSOLICITED RESULTS Final Result Performing Organization Address City/State/[facility] Co de Phone Number [facility] [address] [place] [address] * (ABNORMAL) POCT glucose meter (05/01/2025 11:51 AM EDT) [facility] POCT Glucose 301(H) 74 - 99 [...] 05/01/2025 11:53 AM EDT [facility] Jailer ID Sebastián Kenny 11:53 AM EDT HEALTHCARE LAB Device ID [id number] 05/01/2025 11:53 AM EDT [facility] Specimen Type POC Capillary 05/01/2025 11:53 AM EDT [facility] Blood Capillary blood specimen / Unknown 05/01/2025 11:51 AM EDT 05/01/2025 11:53 AM EDT us Marjorie Myers MD LAB POINT OF CARE TE ST DOCKED DEVICE UNSOLICITED RESULTS Final Result Performing Organization Address [facility] Co de Phone Number [facility] [address] [place] [address] * (ABNORMAL) POCT glucose meter (05/01/2025 9:13 [...] Comment 05/01/2025 9:15 AM EDT HEALTHCARE LAB Jailer ID Francisco Javier Martin 05/01/2025 9:15 AM EDT [facility] Device ID [id number] 05/01/2025 9:15 AM EDT [facility] Specimen Type POC Capillary 05/01/2025 9:15 AM EDT [facility] Blood Capillary blood specimen / Unknown 05/01/2025 9:13 AM EDT 05/01/2025 9:15 AM EDT Marjorie Myers MD LAB POINT OF CARE TE ST DOCKED DEVICE UNSOLICITED RESULTS Final Result Performing Organization Address [facility] de Phone Number [facility] [address] [place] [address] * Surgical Pathology Exam (05/01/2025 8:13 AM EDT) Case Report Surgical Pathology Case: [id number] Authorizing Provider: Mary Vicente MD Collected: 05/01/2025 [...] foot (CMS/HCC) [M86.671] 05/09/2025 9:56 AM EDT [facility] The wound extends into the underlying bone. Vending Route Driver sections are submitted as follows: A1-A2: Necrotic lateral skin A3: Bone underlying gaping wound, following decalcification A4: Bone margin, following decalcification BLAS Kwok ([facility]) B. R 5TH TOE MARGIN The specimen is received fresh and placed in formalin, labeled R 5th toe MARGIN , and consists of a 2.8 x 2.8 x 0.6 cm aggregate of hemorrhagic bony fragments. The specimen is entirely submitted in cassette B1, following decalcification. Cold Time: 25m BLAS Kwok ([facility]) 05/09/2025 9:56 AM EDT [facility] [...] Edited Result - Final Performing Organization Address City/[facility]/ZIP Co de Phone Number [facility] [address] [place] [address] * Type and Screen (05/01/2025 6:49 AM EDT) Pathologist [facility] ABO/Rh O Positive 05/01/2025 6:53 AM EDT BLOOD BANK Antibody Screen Negative 05/01/2025 6:53 AM EDT BLOOD BANK Specimen Expiration 05/04/2025 23:59 05/01/2025 6:53 AM EDT BLOOD BANK Blood Venous blood specimen / Unknown Venipuncture / Unknown 05/01/2025 6:49 AM EDT 05/01/2025 6:53 AM EDT us Yanna Calhoun DO LAB BLOOD BANK TEST ORDERA BLES Final Result Performing Organization Address [facility] Co de Phone Number BLOOD BANK [address] [place] [address], * (ABNORMAL) POCT glucose meter (05/01/2025 6:48 AM EDT) Pathologist [facility] POCT Glucose 222(H) 74 - 99 mg/dL 05/01/2025 6:50 AM EDT [facility] Comment:Accuracy of a glucos e [...] Comment 05/01/2025 6:50 AM EDT [facility]ALTH[facility] Jailer ID Emelina Romero 6:50 AM EDT HEALTHCARE LAB Device ID [id number] 05/01/2025 6:50 AM EDT [facility]ALTH[facility]ARE LAB Specimen Type POC Venous 05/01/2025 6:50 AM EDT [facility] Blood Venous blood specimen / Unknown 05/01/2025 6:48 AM EDT 05/01/2025 6:50 AM EDT us Marjorie Myers MD LAB POINT OF CARE TE ST DOCKED DEVICE UNSOLICITED RESULTS Final Result Performing Organization Address City/[facility]/ZIP Co de Phone Number [facility] [address] [place] [address] * Creatine Kinase (CK), Total (05/01/2025 2:14 AM EDT) Creatine Kinase, Plasma 60 49 - 320 U/L 05/01/2025 2:53 AM EDT [facility] Blood Venous blood specimen / Unknown Venipuncture / Unknown 05/01/2025 2:14 AM EDT 05/01/2025 2:26 AM EDT us Marjorie Myers MD LAB BLOOD ORDERABLES Final Resul t Performing Organization Address City/[facility]/ZIP Co de Phone Number [facility] [address] [place] [address] * (ABNORMAL) CBC and Differential (05/01/2025 2:14 [...] Resul t [facility] [address] [place] [address] * (ABNORMAL) Basic Metabolic Panel, Plasma (05/01/2025 [...] ORDERABLES Final Resul t Performing Organization Address City/[facility]/ZIP Co de Phone Number [facility] [address] [place] [address] * (ABNORMAL) Magnesium, Plasma (05/01/2025 2:14 AM EDT) Magnesium, Plasma 1.8(L) 1.9 - 2.4 mg/dL 05/01/2025 2:53 AM EDT [facility] Blood Venous blood specimen / Unknown Venipuncture / Unknown 05/01/2025 2:14 AM EDT 05/01/2025 2:26 AM EDT us Marjorie Myers MD LAB BLOOD ORDERABLES Final Resul t [facility] [address] [place] [address] * Phosphorus, Plasma (05/01/2025 2:14 AM EDT) [facility] Phosphorus, Plasma 3.0 2.5 - 4.5 mg/dL 05/01/2025 2:53 AM EDT [facility] Blood Venous blood specimen / Unknown Venipuncture / Unknown 05/01/2025 2:14 AM EDT 05/01/2025 2:26 AM EDT Marjorie Myers MD LAB BLOOD ORDERABLES Final Resul t [facility] [address] [place] [address] * (ABNORMAL) POCT glucose meter (04/30/2025 8:21 PM EDT) [facility] POCT Glucose 226(H) 74 - 99 [...] 04/30/2025 8:23 PM EDT [facility] Jailer ID Sandra Perez 04/30/20 8:23 PM EDT HEALTH[facility]ARE LAB Device ID [id number] 04/30/2025 8:23 PM EDT [facility]ARE LAB Specimen Type POC Capillary 04/30/2025 8:23 PM EDT [facility] Blood Capillary blood specimen / Unknown 04/30/2025 8:21 PM EDT 04/30/2025 8:23 PM EDT us Marjorie Myers MD LAB POINT OF CARE TE ST DOCKED DEVICE UNSOLICITED RESULTS Final Result [facility] [address] [place] [address] * (ABNORMAL) POCT glucose meter (04/30/2025 4:19 PM EDT) [facility] POCT Glucose 173(H) 74 - 99 [...] 04/30/2025 4:54 PM EDT [facility] Jailer ID Priyanka Negrete 04/30/20 4:54 PM EDT [facility] Device ID [id number] 04/30/2025 4:54 PM EDT HEALTH[facility]ARE LAB Specimen Type POC Capillary 04/30/2025 4:54 PM EDT [facility] Blood Capillary blood specimen / Unknown 04/30/2025 4:19 PM EDT 04/30/2025 4:54 PM EDT Marjorie Myers MD LAB POINT OF CARE TE ST DOCKED DEVICE UNSOLICITED RESULTS Final Result [facility] [address] [place] [address] * (ABNORMAL) POCT glucose meter (04/30/2025 12:11 PM EDT) [facility] POCT Glucose 226(H) 74 - 99 [...] 04/30/2025 12:50 PM EDT [facility] Jailer ID Priyanka Negrete 04/30/20 12:50 PM EDT [facility] Device ID [id number] 04/30/2025 12:50 PM EDT [facility] Specimen Type POC Capillary 04/30/2025 12:50 PM EDT [facility] LAB Blood Capillary blood specimen / Unknown 04/30/2025 12:11 PM EDT 04/30/2025 12:50 PM EDT us Marjorie Myers MD LAB POINT OF CARE TE ST DOCKED DEVICE UNSOLICITED RESULTS Final Result Performing Organization Address City/[facility] Co de Phone Number [facility] [address] [place] [address] * (ABNORMAL) POCT glucose meter (04/30/2025 8:18 [...] Comment 04/30/2025 8:55 AM EDT HEALTHCARE LAB Jailer ID Priyanka Negrete 04/30/20 8:55 AM EDT HEALTHCARE LAB Device ID [id number] 04/30/2025 8:55 AM EDT [facility] Specimen Type POC Capillary 04/30/2025 8:55 AM EDT [facility] Blood Capillary blood specimen / Unknown 04/30/2025 8:18 AM EDT 04/30/2025 8:55 AM EDT us Marjorie Myers MD LAB POINT OF CARE TE ST DOCKED DEVICE UNSOLICITED RESULTS Final Result Performing Organization Address City/[facility] Co de Phone Number HEALTHCARE LAB [address] [place] [address] * (ABNORMAL) CBC and Differential (04/30/2025 3:19 [...] Resul t [facility] [address] [place] [address] * (ABNORMAL) Basic Metabolic Panel, Plasma (04/30/2025 [...] ORDERABLES Final Resul t Performing Organization Address City/[facility]/ZIP Co de Phone Number [facility] [address] [place] [address] * (ABNORMAL) Magnesium, Plasma (04/30/2025 3:19 AM EDT) Magnesium, Plasma 1.5(L) 1.9 - 2.4 mg/dL 04/30/2025 3:56 AM EDT [facility] Blood Venous blood specimen / Unknown Venipuncture / Unknown 04/30/2025 3:19 AM EDT 04/30/2025 3:26 AM EDT us Marjorie Myers MD LAB BLOOD ORDERABLES Final Resul t Performing Organization Address City/[facility]/ZIP Co de Phone Number [facility] [address] [place] [address] * Phosphorus, Plasma (04/30/2025 3:19 AM EDT) [facility] Phosphorus, Plasma 2.7 2.5 - 4.5 mg/dL 04/30/2025 3:56 AM EDT [facility] Blood Venous blood specimen / Unknown Venipuncture / Unknown 04/30/2025 3:19 AM EDT 04/30/2025 3:26 AM EDT Marjorie Myers MD LAB BLOOD ORDERABLES Final Resul t [facility] [address] [place] [address] * (ABNORMAL) POCT glucose meter (04/29/2025 7:38 PM EDT) [facility] POCT Glucose 191(H) 74 - 99 [...] 04/29/2025 9:20 PM EDT [facility] Jailer ID Ervin Du V 025 9:20 PM EDT [facility]ALTHCARE LAB Device ID [id number] 04/29/2025 9:20 PM EDT [facility]ARE LAB Specimen Type POC Capillary 04/29/2025 9:20 PM EDT [facility] LAB Blood Capillary blood specimen / Unknown 04/29/2025 7:38 PM EDT 04/29/2025 9:20 PM EDT us Marjorie Myers MD LAB POINT OF CARE TE ST DOCKED DEVICE UNSOLICITED RESULTS Final Result Performing Organization Address City/[facility]/ZIP Co de Phone Number [facility]ARE LAB [address] [place] [address] * (ABNORMAL) POCT glucose meter (04/29/2025 5:21 PM EDT) [facility] POCT Glucose 241(H) 74 - 99 [...] Comment 04/29/2025 5:23 PM EDT [facility]ARE LAB Jailer ID Rocio Dozier 04/29/20 5:23 PM EDT [facility]ARE LAB Device ID [id number] 04/29/2025 5:23 PM EDT [facility]ARE LAB Specimen Type POC Capillary 04/29/2025 5:23 PM EDT [facility] Blood Capillary blood specimen / Unknown 04/29/2025 5:21 PM EDT 04/29/2025 5:23 PM EDT Marjorie Myers MD LAB POINT OF CARE TE ST DOCKED DEVICE UNSOLICITED RESULTS Final Result Performing Organization Address City/State/[facility] Co de Phone Number [facility]ARE LAB [address] [place] [address] * (ABNORMAL) POCT glucose meter (04/29/2025 11:15 AM EDT) [facility] POCT Glucose 204(H) 74 - 99 [...] 04/29/2025 11:17 AM EDT [facility] Jailer ID Rocio Dozier 04/29/20 11:17 AM EDT HEALTHCARE LAB Device ID [id number] 04/29/2025 11:17 AM EDT [facility]ALTH[facility]ARE LAB Specimen Type POC Capillary 04/29/2025 11:17 AM EDT [facility]ARE LAB Blood Capillary blood specimen / Unknown 04/29/2025 11:15 AM EDT 04/29/2025 11:17 AM EDT Marjorie Myers MD LAB POINT OF CARE TE ST DOCKED DEVICE UNSOLICITED RESULTS Final Result Performing Organization Address City/[facility] Co de Phone Number [facility]ALTH[facility]ARE LAB [address] [place] [address] * (ABNORMAL) POCT glucose meter (04/29/2025 7:13 AM EDT) [facility] POCT Glucose 269(H) 74 - 99 [...] for testing. Comment 04/29/2025 7:14 AM EDT [facility] Jailer ID Rocio Dozier 04/29/20 7:14 AM EDT HEALTHCARE LAB Device ID [id number] 04/29/2025 7:14 AM EDT [facility] Specimen Type POC Capillary 04/29/2025 7:14 AM EDT [facility] Blood Capillary blood specimen / Unknown 04/29/2025 7:13 AM EDT 04/29/2025 7:14 AM EDT Marjorie Myers MD LAB POINT OF CARE TE ST DOCKED DEVICE UNSOLICITED RESULTS Final Result [facility] [address] [place] [address] * Folate (04/29/2025 3:04 AM EDT) [facility] Folate, Serum 10.5 >4.6 ng/mL 04/29/2025 4:05 AM EDT [facility] Blood Venous blood specimen / Unknown Venipuncture / Unknown 04/29/2025 3:04 AM EDT 04/29/2025 3:20 AM EDT us Sy De La Fuente ELECTRONIC TEST TECHNICIAN, DNP LAB BLOOD ORDERABLES Fin al Result Performing Organization Address City/[facility]/ZIP Co de Phone Number [facility] [address] [place] [address] * Vitamin B12 (04/29/2025 3:04 AM EDT) Vitamin B12, Serum 338 210 - 1,033 pg/mL 04/29/2025 4:06 AM EDT [facility] Blood Venous blood specimen / Unknown Venipuncture / Unknown 04/29/2025 3:04 AM EDT 04/29/2025 3:20 AM EDT us Sy De La Fuente APRN, DNP LAB BLOOD ORDERABLES Fin al Result Performing Organization Address [facility]/ZIP Co de Phone Number [facility] [address] [place] [address] * (ABNORMAL) Iron & Total Iron Binding [...] ORDERABLES Fin al Result Performing Organization Address City/[facility]/ZIP Co de Phone Number [facility] [address] [place] [address] * Ferritin (04/29/2025 3:04 AM EDT) Ferritin, Serum 40 20 - 400 ng/mL 04/29/2025 4:06 AM EDT [facility] Blood Venous blood specimen / Unknown Venipuncture / Unknown 04/29/2025 3:04 AM EDT 04/29/2025 3:20 AM EDT us Sy De La Fuente APRN, DENISE LAB BLOOD ORDERABLES Fin al Result Performing Organization Address [facility] Phone Number [facility] [address] [place] [address] * Cortisol (04/29/2025 3:04 AM EDT) Pathologist [facility] Cortisol 2.80 Before 10am: 3.7 - 19.4. After 5pm: 2.9 - 17.3 ug/dL 04/29/2025 4:22 AM EDT [facility] Comment:Testing performed on [employer], standardized against FCI Reference Standard concentration values assigned by LC-MS/MS and verified by BCR 192 and BCR 193 certified reference materials. Blood Venous blood specimen / Unknown Venipuncture / Unknown 04/29/2025 3:04 AM EDT 04/29/2025 3:19 AM EDT us Sy De La Fuente APRN, DNP LAB REF LAB BLOOD AND FL UID ORD Final Result Performing Organization Address [facility] Phone Number [facility] [address] [place] [address] * TSH (04/29/2025 3:04 AM EDT) Thyroid Stimulating Hormone, Plasma 1.58 0.40 - 4.20 uIU/mL 04/29/2025 3:55 AM EDT [facility] Blood Venous blood specimen / Unknown Venipuncture / Unknown 04/29/2025 3:04 AM EDT 04/29/2025 3:19 AM EDT us Sy De La Fuente APRN, DNP LAB BLOOD ORDERABLES Fin al Result Performing Organization Address City/[facility] de Phone Number [facility] [address] [place] [address] * (ABNORMAL) Hemoglobin A1c (04/29/2025 3:04 AM [...] Adults <6.0% Children and Adolescents <7.5% Source: [place] [employer]. Standards of medical care in diabetes,2017. Diabetes Care.2017:40 (suppl 1):S1-S135. Sy De La Fuente APRN, DNP LAB BLOOD ORDERABLES Fin al Result Performing Organization Address City/[facility]/ZIP Co de Phone Number [facility] [address] [place] [address] * Phosphorus (04/29/2025 3:04 AM EDT) Phosphorus, Plasma 3.6 2.5 - 4.5 mg/dL 04/29/2025 3:55 AM EDT [facility] Blood Venous blood specimen / Unknown Venipuncture / Unknown 04/29/2025 3:04 AM EDT 04/29/2025 3:19 AM EDT Sy De La Fuente APRN, DNP LAB BLOOD ORDERABLES Fin al Result Performing Organization Address [facility]/ZIP Co de Phone Number [facility] [address] [place] [address] * (ABNORMAL) Magnesium, Plasma (04/29/2025 3:04 AM EDT) Magnesium, Plasma 1.7(L) 1.9 - 2.4 mg/dL 04/29/2025 3:55 AM EDT [facility] Blood Venous blood specimen / Unknown Venipuncture / Unknown 04/29/2025 3:04 AM EDT 04/29/2025 3:19 AM EDT us Sy De La Fuente ELECTRONIC TEST TECHNICIAN, DNP LAB BLOOD ORDERABLES Fin al Result [facility] [address] [place] [address] * (ABNORMAL) Comprehensive metabolic panel (04/29/2025 3:04 [...] AM EDT us Sy De La Fuente ELECTRONIC TEST TECHNICIAN, DNP LAB BLOOD ORDERABLES Fin al Result [facility] [address] [place] [address] * (ABNORMAL) CBC and Differential (04/29/2025 3:04 [...] rather than percentages. Sy De La Fuente ELECTRONIC TEST TECHNICIAN, DNP LAB BLOOD ORDERABLES Fin al Result [facility] [address] [place] [address] * (ABNORMAL) POCT glucose meter (04/28/2025 9:06 PM EDT) [facility] Signature POCT Glucose 212(H) 74 - 99 [...] Comment 04/28/2025 9:08 PM EDT [facility]ALTH[facility]ARE LAB Jailer ID [place] 04/28/2025 9:08 PM EDT HEALTHCARE LAB Device ID [id number] 04/28/2025 9:08 PM EDT HEALTHCARE LAB Specimen Type POC Capillary 04/28/2025 9:08 PM EDT [facility]ALTH[facility]ARE LAB Blood Capillary blood specimen / Unknown 04/28/2025 9:06 PM EDT 04/28/2025 9:08 PM EDT Marjorie Myers MD LAB POINT OF CARE TE ST DOCKED DEVICE UNSOLICITED RESULTS Final Result Performing Organization Address [facility] de Phone Number HEALTHCARE LAB [address] [place] [address] * (ABNORMAL) POCT glucose meter (04/28/2025 5:34 PM EDT) Pathologist [facility] POCT Glucose 213(H) 74 - 99 mg/dL [...] Comment 04/28/2025 5:38 PM EDT HEALTHCARE LAB Jailer ID Ailyn Finch 5:38 PM EDT [facility] Device ID [id number] 04/28/2025 5:38 PM EDT [facility] Specimen Type POC Capillary 04/28/2025 5:38 PM EDT [facility] Blood Capillary blood specimen / Unknown 04/28/2025 5:34 PM EDT 04/28/2025 5:38 PM EDT Marjorie Myers MD LAB POINT OF CARE TE ST DOCKED DEVICE UNSOLICITED RESULTS Final Result Performing Organization Address City/[facility] Co de Phone Number [facility] [address] [place] [address] * (ABNORMAL) POCT glucose meter (04/28/2025 3:51 PM EDT) Pathologist [facility] POCT Glucose 209(H) 74 - 99 mg/dL [...] Comment 04/28/2025 3:54 PM EDT HEALTHCARE LAB Jailer ID Ailyn Finch 3:54 PM EDT HEALTHCARE LAB Device ID [id number] 04/28/2025 3:54 PM EDT HEALTHCARE LAB Specimen Type POC Capillary 04/28/2025 3:54 PM EDT [facility]ALTH[facility]ARE LAB Blood Capillary blood specimen / Unknown 04/28/2025 3:51 PM EDT 04/28/2025 3:54 PM EDT us Marjorie Myers MD LAB POINT OF CARE TE ST DOCKED DEVICE UNSOLICITED RESULTS Final Result Performing Organization Address City/State/[facility] Co de Phone Number [facility] [address] [place] [address] * VAS Ankle Brachial Index - GABBI [...] are demonstrated at the levels of the PROFESSOR OF EXERCISE SCIENCE and DPA. Segmental pressures are within normal limits with a PROFESSOR OF EXERCISE SCIENCE GABBI of 1.1 (172 mmHg) and a DPA GABBI of 1.0 (149 mmHg). Digit pressures are of 122 mmHg. Left: Multiphasic waveforms are demonstrated at the levels of the PROFESSOR OF EXERCISE SCIENCE and DPA. Segmental pressures are within normal limits with a PROFESSOR OF EXERCISE SCIENCE GABBI of 1.1 (164 mmHg) and a DPA GABBI of 1.0 (153 mmHg). Digit pressures are of 151 mmHg. Procedure Note Chris Schaefer MD - 04/28/2025 CLINICAL INDICATION: Diabetic foot ulcer TECHNIQUE: Non-invasive, continuous wave Doppler exam with segmental pressures andspectral analysis of the lower extremity was performed. COMPARISON: None. FINDINGS: Right: Multiphasic waveforms are demonstrated at the levels of the PROFESSOR OF EXERCISE SCIENCE andDPA. Segmental pressures are within normal limits with a PROFESSOR OF EXERCISE SCIENCE GABBI of 1.1(172 mmHg) and a DPA GABBI of 1.0 (149 mmHg). Digit pressures are of 122mmHg. Left: Multiphasic waveforms are demonstrated at the levels of the PROFESSOR OF EXERCISE SCIENCE andDPA. Segmental pressures are within normal limits with a PROFESSOR OF EXERCISE SCIENCE GABBI of 1.1(164 mmHg) and a DPA [...] with the final edited report. Drafted by NAGIE Valera on 04/28/2025 3:28 PM Final report signed by Chris Schaefer MD, FACS, FSVS, RPVI on04/28/2025 4:14 PM us Sy De La Fuente ELECTRONIC TEST TECHNICIAN, DNP CV VASCULAR PROCEDURES F inal [...] and its performance characteristics determined by the [facility]. Although the media is FDA-approved, it is not FDA-approved for all specimen types submitted. The FDA has determined that such clearance or approval is not necessary. This test is used for surveillance purposes. It should not be regarded as investigational or for research. The [facility]biology [facility] is certified under the Clinical Laboratory Improvement Amendments of 1988 (CLIA-88) as qualified to perform high complexity clinical laboratory testing. us Sy De La Fuente APRN, DNP LAB MICROBIOLOGY - GENER AL ORDERABLES Final Result [facility] [address] [place] [address] * (ABNORMAL) POCT glucose meter (04/28/2025 12:52 [...] Comment 04/28/2025 12:56 PM EDT HEALTHCARE LAB Jailer ID Ailyn Finch 12:56 PM EDT HEALTHCARE LAB Device ID [id number] 04/28/2025 12:56 PM EDT HEALTHCARE LAB Specimen Type POC Capillary 04/28/2025 12:56 PM EDT [facility] Blood Capillary blood specimen / Unknown 04/28/2025 12:52 PM EDT 04/28/2025 12:56 PM EDT us Marjorie Myers MD LAB POINT OF CARE TE ST DOCKED DEVICE UNSOLICITED RESULTS Final Result [facility] [address] [place] [address] * (ABNORMAL) POCT glucose meter (04/28/2025 11:39 [...] Comment 04/28/2025 11:44 AM EDT HEALTH[facility]ARE LAB Jailer ID Ailyn Finch 11:44 AM EDT HEALTHCARE LAB Device ID [id number] 04/28/2025 11:44 AM EDT HEALTH[facility]ARE LAB Specimen Type POC Capillary 04/28/2025 11:44 AM EDT [facility] Blood Capillary blood specimen / Unknown 04/28/2025 11:39 AM EDT 04/28/2025 11:44 AM EDT us Marjorie Myers MD LAB POINT OF CARE TE ST DOCKED DEVICE UNSOLICITED RESULTS Final Result Performing Organization Address City/[facility]/ZIP Co de Phone Number HEALTHCARE LAB [address] [place] [address] * Lavender Top (04/28/2025 8:13 AM EDT) Pathologist [facility] Extra Hold for add-ons 04/28/2025 11:01 AM EDT [facility] Comment:Auto resulted. Blood Venous blood specimen / Unknown 04/28/2025 8:13 AM EDT 04/28/2025 8:19 AM EDT us Marjorie Myers MD LAB BLOOD ORDERABLES Final Resul t Performing Organization Address City/[facility]/ZIP Co de Phone Number [facility] [address] [place] [address] * Light Green Top (04/28/2025 8:13 AM EDT) Extra Hold for add-ons 04/28/2025 11:01 AM EDT [facility] Comment:Auto resulted. Blood Venous blood specimen / Unknown 04/28/2025 8:13 AM EDT 04/28/2025 8:19 AM EDT us Marjorie Myers MD LAB BLOOD ORDERABLES Final Resul t [facility] [address] [place] [address] * APTT (04/28/2025 8:13 AM EDT) aPTT 32 25 - 35 sec 04/28/2025 8:33 AM EDT [facility] Blood Venous blood specimen / Unknown Venipuncture / Unknown 04/28/2025 8:13 AM EDT 04/28/2025 8:18 AM EDT us Sy De La Fuente APRN, DNP LAB BLOOD ORDERABLES Fin al Result Performing Organization Address [facility]/ZIP Co de Phone Number [facility] [address] [place] [address] * (ABNORMAL) PT/INR (04/28/2025 8:13 AM EDT) [...] ORDERABLES Fin al Result Performing Organization Address City/[facility]/ZIP Co de Phone Number [facility] [address] [place] [address] * ECG Adult (04/28/2025 7:20 AM EDT) EKG DIAGNOSIS CLASS Abnormal MUSE ECG Ventricular Rate 90 BPM MUSE ECG Atrial Rate 90 BPM MUSE ECG ME Interval 206 ms MUSE ECG QRSD Interval 146 ms MUSE ECG QT Interval 450 ms MUSE ECG QTC Interval 550 ms MUSE ECG P [place] 69 degrees MUSE ECG R [place] -32 degrees MUSE ECG T Wave [place] 35 degrees MUSE ECG Diagnosis Baseline Artifact [...] ORDERABLES Final Re sult Performing Organization Address City/[facility] Co de Phone Number MUSE ECG * (ABNORMAL) POCT glucose meter (04/28/2025 7:17 AM EDT) POCT Glucose 199(H) 74 - 99 mg/dL 04/28/2025 7:21 AM EDT [facility] Comment:Accuracy of a glucos e result [...] Comment 04/28/2025 7:21 AM EDT HEALTHCARE LAB Jailer ID Ailyn Finch 7:21 AM EDT HEALTHCARE LAB Device ID [id number] 04/28/2025 7:21 AM EDT [facility]ALTH[facility]ARE LAB Specimen Type POC Capillary 04/28/2025 7:21 AM EDT [facility]ALTH[facility] LAB Blood Capillary blood specimen / Unknown 04/28/2025 7:17 AM EDT 04/28/2025 7:21 AM EDT us Greg Lee MD LAB POINT OF CARE TE ST DOCKED DEVICE UNSOLICITED RESULTS Final Result Performing Organization Address City/State/[facility] Co de Phone Number HEALTHCARE LAB [address] [place] [address] * CT Foot Right w IV Contrast [...] TEST ORDERABLES Final Result Performing Organization Address City/[facility]/ZIP Co de Phone Number BLOOD BANK [address] * Blood Culture (Aerobic/Anaerobet Set) (04/27/2025 10:16 PM EDT) Culture No growth at day 5 05/03/2025 12:01 AM EDT [facility] Blood Venous blood specimen / Unknown Venipuncture / Unknown 04/27/2025 10:16 PM EDT 04/27/2025 10:53 PM EDT us Jessa Law MD [facility] Final Result [facility] [address] [place] [address] * Blood Culture (Aerobic/Anaerobet Set) (04/27/2025 10:16 PM EDT) Culture No growth at day 5 05/03/2025 12:01 AM EDT [facility] Blood Venous blood specimen / Unknown Venipuncture / Unknown 04/27/2025 10:16 PM EDT 04/27/2025 10:53 PM EDT us Jessa Law MD LAB MICROBIOLOGY - GENERAL SANYA DOMINGUEZ Final Result [facility] LAB [address] [place] [address] * (ABNORMAL) Blood gas, venous (04/27/2025 10:16 [...] Resu lt [facility] [address] [place] [address] * Creatine Kinase, Total, Plasma (04/27/2025 9:37 PM EDT) Creatine Kinase, Plasma 71 49 - 320 U/L 04/28/2025 8:36 AM EDT [facility] Blood Venous blood specimen / Unknown Venipuncture / Unknown 04/27/2025 9:37 PM EDT 04/27/2025 9:40 PM EDT us Sy De La Fuente ELECTRONIC TEST TECHNICIAN, DNP LAB BLOOD ORDERABLES Fin al Result Performing Organization Address City/[facility]/ZIP Co de Phone Number [facility] [address] [place] [address] * (ABNORMAL) Procalcitonin (04/27/2025 9:37 PM EDT) [...] predict 28 day mortality risk. Please consult [email or web address]-kqv-[email or web address] for more information. Test performed at [facility], [facility]. Sy De La Fuente APRN, DNP LAB BLOOD ORDERABLES Fin al Result Performing Organization Address City/[facility]/ZIP Co de Phone Number [facility] [address] [place] [address] * (ABNORMAL) Sed rate, automated (04/27/2025 9:37 PM EDT) Sedimentation Rate >111(H) <15 mm/hr 2024 11:10 PM EDT [facility] Blood Venous blood specimen / Unknown Venipuncture / Unknown 04/27/2025 9:37 PM EDT 04/27/2025 9:[address] [facility] Jessa Law MD LAB BLOOD ORDERABLES Final Resu lt Performing Organization Address City/[facility]/ZIP Co de Phone Number [facility] [address] [place] [address] * (ABNORMAL) Magnesium (04/27/2025 9:37 PM EDT) Magnesium, Plasma 1.2(L) 1.9 - 2.4 mg/dL 04/27/2025 10:11 PM EDT [facility] Blood Venous blood specimen / Unknown Venipuncture / Unknown 04/27/2025 9:37 PM EDT 04/27/2025 9:[address] [facility] Jessa Law MD LAB BLOOD ORDERABLES Final Resu lt Performing Organization Address [facility]/ZIP Co de Phone Number [facility] [address] [place] [address] * Beta-Hydroxybutyric Acid (04/27/2025 9:37 PM EDT) Pathologist [facility] Beta-Hydroxybut yric Acid, Plasma 0.23 <=0.27 mmol/L 04/27/2025 10:56 PM EDT [facility] Blood Venous blood specimen / Unknown Venipuncture / Unknown 04/27/2025 9:37 PM EDT 04/27/2025 9:40 PM EDT Jessa Law MD LAB BLOOD ORDERABLES Final Resu lt Performing Organization Address [facility] Co de Phone Number [facility] [address] [place] [address] * ED HIV 1/2 Antibody/Antigen Screen w/Reflex to HIV 1/2 Differentiation (04/27/2025 9:37 PM EDT) [facility] HIV 1 & 2 Antibody/Antigen Screen [...] Final Res ult Performing Organization Address [facility]/ZIP Co de Phone Number [facility] [address] [place] [address] * Hepatitis C Antibody - ED (04/27/2025 9:37 PM EDT) Pathologist [facility] Hepatitis C Antibody Negative Negative 04/27/2025 10:41 PM EDT [facility] Blood Venous blood specimen / Unknown Venipuncture / Unknown 04/27/2025 9:37 PM EDT 04/27/2025 10:00 PM EDT Madhu Ritchie MD LAB BLOOD ORDERABLES Final Res ult Performing Organization Address [facility]/ZIP Co de Phone Number [facility] [address] [place] [address] * (ABNORMAL) C-reactive protein (04/27/2025 9:37 PM [...] Final Res ult Performing Organization Address [facility]/ZIP Co de Phone Number [facility] [address] [place] [address] * (ABNORMAL) CBC w/diff (04/27/2025 9:37 PM EDT) Pathologist [facility] WBC Count 12.00(H) 3.70 - [...] Res ult [facility] [address] [place] [address] * (ABNORMAL) BMP (04/27/2025 9:37 PM EDT) [...] Res ult [facility] [address] [place] [address] documented in this encounter Visit Diagnoses Diagnosis Other chronic osteomyelitis of right foot ([facility]) Diabetic foot ulcer with osteomyelitis Type [...] unspecified Other chronic osteomyelitis of right foot ([facility]) documented in this encounter Admitting Diagnoses [...] 5 mg, Oral, Daily, First dose on [facility] 05/06/25 at 1245, Until Discontinued, [...] PRN, Starting on Thu04/29/25 at 0754, Until Michaelle 05/18/25 at 1348, [...] 5:00 PM EST 20 mg sodium chloride ([place]) 0.65 % nasal spray 1 spray 1 [...] on Thu05/10/25 at 2100, Until Discontinued, Routine 022 (Not Given - Provider: Ivan Slaughter RN [...] - Provider: Kylee Gonzalez RN - Comment: [facility]) insulin regular (HumuLIN R U-500) 500 [...] Provider: Kylee Gonzalez, LOLA - Comment: [facility]) insulin regular (HumuLIN R U-500) 500 UNIT/ML [...] Kylee Gonzalez RN - Comment: [facility]) perflutren lipid microspheres (Definity) [...] - Provider: Kylee Gonzalez RN) sodium chloride ([place]) 0.65 % nasal spray 1 spray 1 [...] documented as of this encounter Care Teams Hydraulic Press Servicer Relationship Specialty Start Date End Date Malcolm Hayward, ELECTRONIC TEST TECHNICIAN [address] [place] [address] [id number] PCP - General 09/21/23 documented as of this encounter
--- OUTSIDE RECORDS SUMMARY | 2025-06-15 09:39 | XMS_ITS | Encounter Summary ---
Author Organization Healthcare Address [address] [id number] Care Team Providers Care Shipping & Receiving Lead Name Role Phone Malcolm Hayward ADALGISA Primary Care Provider [phone] Encounter Details Date Type Department Care Team (Late st Contact Info) Description 06/12/2025 Telephone [facility] [facility] [address] [facility] 5th Floor [address] [place] [address] Mary Vicente MD [address] [facility] [address] [place] [address] Social History Tobacco Use Types [...] time in the past 12 m [facility], were you homeless or living in a chcf (including now)? No 04/28/2025 [facility] Utilities Answer Date Recorded In the [...] encounter Miscellaneous Notes * Telephone Encounter - Alyssa Callaway - 06/12/2025 12:13 PM EST Clinical Concern/Question Reason for Call: Dolly feliciano [facility] would like to speak to a nurse about patient's weight bearing status. Thank you! Has questions about a special shoe patient could use. Best contact number: Other: [phone] Optimal time of day to reach caller: [...] Description 06/22/2025 1:40 PM EST Office Visit [facility] Clinic [address] [facility] 5th Floor [address] [place] [address] Mary Vicente MD [address] [place] [address] 06/23/2025 8:00 AM EST Office Visit [facility] Vascular [facility] [address] [place] [address] Sheila Marcano PA [address] [facility] [address] [place] [address] documented as of this encounter [...] documented as of this encounter Care Teams Shipping & Receiving Lead Relationship Specialty Start Date End Date Malcolm Hayward APRN [address] [place] [address] PCP - General 09/21/23 documented as of this encounter
--- OUTSIDE RECORDS SUMMARY | 2025-06-15 09:39 | XMS_ITS | Referral Summary ---
Author Organization [employer] ([place], [place], [place], [place], [place]) Address [address] [place] [address] Care Team Providers Care Dealer Analyst Name Role Phone Malcolm Hayward APRN Primary Care Provider [phone] Allergies No known active allergies Medications atorvastatin [...] A B BLUE CROSS/BLUE SHIELD Care Teams Dealer Analyst Relationship Specialty Start Date End Date Malcolm Hayward, ADALGISA [address] [place] [address] PCP - General Nurse Practitioner 12/20/24
--- OUTSIDE RECORDS SUMMARY | 2025-06-15 09:39 | XMS_ITS | Clinical Summary ---
Author Organization [employer] ([place], [place], [place], [place], [place]) Address [address] [place] [address] Care Team Providers Care Shirt Marker Name Role Phone Malcolm Hayward APRN Primary Care Provider [phone] Allergies No known active allergies Medications atorvastatin [...] 04/26/2020, 12/24/2016 Insurance MEDICARE PART A B /[facility] Care Teams Shirt Marker Relationship Specialty Start Date End Date Malcolm Hayward APRN [address] [id number] PCP - General Nurse Practitioner 12/20/24
--- OUTSIDE RECORDS SUMMARY | 2025-06-15 09:39 | XMS_ITS | Encounter Summary ---
Author Organization [facility] Address [address] [place] [address] Care Team Providers Care Shock Absorber Installer Name Role Phone Malcolm Hayward ADALGISA Primary Care Provider +07-20 [phone] Encounter Details Date Type Department Care Team (Late st Contact Info) Description 06/13/2025 Telephone Vascular Surgery [address] [place] [address] Rohith Ramires, SENIOR ORACLE APPLICATIONS DEVELOPER None Social History Tobacco Use Types Packs/Day [...] in a halfway (including now)? No 04/28/2025 [facility] Utilities Answer Date Recorded In the past 12 months has th e [employer], gas, oil, or water company threatened to [...] Miscellaneous Notes * Nursing Note - Rohith Ramires RN - 06/13/2025 10:33 AM EST Called [facility] with information regarding patients ambulation status and updated them that he is NWB on the right foot unless in an offloading boot. Patient is to use wheel chair instead of walking per SGR team until seen for first post op visit 06/22/25. According to the PT with [facility], patient has not been compliant with these recommendations, walking to the bathroom instead of using awheel chair, and does not have a boot at home. Patient has seen a non emergency services ambulance driver after discharge for wound culturing and it came back positive, patient had asked for IV ABX, but SGR team cannot write for ABX from someone elses cultures. Machine Operations Supervisor should manage that, but does not want to because of recent surgery. Clinic staff has recommended multiple times via epic chat in mychart and phone calls to go to the ED if non emergency services ambulance driver unable/unwilling totreat. Has yet to go, and has been over a week. I called patient after speaking with team and [facility] and left a voicemail reinforcing ambulation recommendations and recommendation to go to the ED for management of infection. Left call back number and informed clinic, SGR Team off this as well. documented in this encounter Plan of Treatment Upcoming Encounters Date Type Department Care Team (Late st Contact Info) Description 06/22/2025 1:40 PM EST Office Visit [facility] Comprehensive Vascular Clinic [address] [facility] 5th Floor [address] [place] [address] Mary Vicente MD [address] [place] [address] 06/23/2025 8:00 AM EST Office Visit [facility] V[facility] Clinic [address] 5th Floor [address] [place] [address] Sheila Marcano PA [address] [place] [address] documented as of this encounter [...] documented as of this encounter Care Teams Shock Absorber Installer Relationship Specialty Start Date End Date Malcolm Hayward APRN [address] [place] [address] PCP - General 09/21/23 documented as of this encounter
--- OUTSIDE RECORDS SUMMARY | 2025-06-15 09:41 | XMS_ITS | Encounter Summary ---
Author Organization [facility] Address [address] [id number] Care Team Providers Care Occ Ther Name Role Phone Malcolm Hayward APRN Primary Care Provider +07-20 [phone] Encounter Details Date Type Department Care Team [...] any time in the past 12 m [facility], were you homeless or living in a care home (including now)? No 04/28/2025 [facility] Utilities Answer Date Recorded In [...] Description 06/22/2025 1:40 PM EST Office Visit [facility] Comprehensive Vascular Clinic [address] [place] [address] Mary Vicente MD [address] [facility] [address] [place] [address] 06/23/2025 8:00 AM EST Office Visit [facility] Comprehensive Vascular Clinic [address] [facility] 5th Floor Wing D, [address] [place] [address] Sheila Marcano PA [address] [facility] [address] [place] [address] documented as of this encounter [...] documented as of this encounter Care Teams Occ Ther Relationship Specialty Start Date End Date Malcolm Hayward APRN [address] [place] [address] PCP - General 09/21/23 documented as of this encounter
--- OUTSIDE RECORDS SUMMARY | 2025-06-15 09:41 | XMS_ITS | Encounter Summary ---
Author Organization [facility] Address [address] [id number] Care Team Providers Care Business Office Representative Name Role Phone Malcolm Hayward ADALGISA Primary Care Provider +07-20 [phone] Reason for Visit * Reason Onset Date Comments HCN Clinical Concern/Question 06/12/2025 Encounter Details Date Type Department Care Team (Late st Contact Info) Description 06/12/2025 Telephone [facility] [address] [facility] 5th Floor Wing D, [address] [place] [address] Mary Vicente MD [address] [facility] [address] [place] [address] HCN Clinical Concern/Question Social History [...] in a alf (including now)? No 04/28/2025 [facility] Utilities Answer [...] about it , labreport Best contact number: [phone] (mobile) Optimal time of day to reach [...] and Home Comprehensive Vascular Clinic [address] [facility] 5th Floor Wing [address] [place] [address] Mary Vicente MD [address] [facility] [address] [place] [address] 06/23/2025 8:00 AM EST Office Visit [facility] Vascular Clinic [address] 5th Floor [address] [place] [address] Sheila Marcano PA [address] [place] [address] documented as of this encounter Visit Diagnoses [...] documented as of this encounter Care Teams Business Office Representative Relationship Specialty Start Date End Date Malcolm Hayward APRN [address] [facility] [place] [address] PCP - General 09/21/23 documented as of this encounter
--- OUTSIDE RECORDS SUMMARY | 2025-06-15 09:41 | XMS_ITS | Encounter Summary ---
Author Organization [facility] Address [address] [id number] Care Team Providers Care Inclusion Internship Name Role Phone Malcolm Hayward FINANCE MANAGER Primary Care Provider [phone] [phone] Reason for Visit * Reason Comments Med Refill Encounter Details Date Type Department Care Team (Late st Contact Info) Description 07/07/2024 Refill [facility] [address] [place] [address] Mayra Torres PA [address] [address] Type 2 diabetes mellitus [...] Description 06/22/2025 1:40 PM EST Office Visit [facility] Comprehensive [facility]ascular Clinic [address], [address] [place] [address] Mary Vicente MD [address] [facility] [address] [place] [address] 06/23/2025 8:00 AM EST Office Visit [facility] Vascular Clinic [address] [facility] 5th Floor Wing [address], [address] [place] [address] Sheila Marcano PA [address] [facility] [address] [place] [address] documented as of this encounter [...] documented as of this encounter Care Teams Inclusion Internship Relationship Specialty Start Date End Date Malcolm Hayward APRN [address] [place] [address] PCP - General 09/21/23 documented as of this encounter
--- OUTSIDE RECORDS SUMMARY | 2025-06-15 09:41 | XMS_ITS | Encounter Summary ---
Author Organization [facility] Address [address] [id number] Care Team Providers Care Drain Tile Press Operator Name Role Phone Malcolm Hayward TALKBACK HOST Primary Care Provider [phone] [phone] Reason for Visit * Reason Comments Med Refill Encounter Details Date Type Department Care Team (Late st Contact Info) Description 12/31/2023 Refill [facility] [address] [place] [address] Earline Loaiza, TALKBACK HOST [address] [facility] [address] [place] [address] Type 2 diabetes mellitus (CMS/HCC) [...] Description 06/22/2025 1:40 PM EST Office Visit [facility] Comprehensive Vascular Clinic [address] [facility] 5th Floor Wing [address], [address] [place] [address] Mary Vicente MD [address] [place] [address] 06/23/2025 8:00 AM EST Office Visit [facility] Comprehensive [facility]ascular Clinic [address] [facility] 5th Floor Wing [address], [address] [place] [address] Sheila Marcano PA [address] [place] [address] documented as of this encounter [...] documented as of this encounter Care Teams Drain Tile Press Operator Relationship Specialty Start Date End Date Malcolm Hayward APRN [address] [place] [address] PCP - General 09/21/23 documented as of this encounter
--- OUTSIDE RECORDS SUMMARY | 2025-06-15 09:41 | XMS_ITS | Clinical Summary ---
Author Organization [facility] Address [address] [place] [address] Care Team Providers Care Button Decorating Machine Operator Name Role Phone Provider, No Known Primary [...] C SCREENING Completed 04/27/2025 Insurance Care Teams Button Decorating Machine Operator Relationship Specialty Start Date End Date Provider, No Known [facility] [place] [address] PCP - General 02/11/21
--- OUTSIDE RECORDS SUMMARY | 2025-06-15 09:41 | XMS_ITS | Encounter Summary ---
Author Organization [facility] Address [address] [id number] Care Team Providers Care Kst Operator Name Role Phone Malcolm Hayward MANUFACTURING STOREPERSON Primary Care Provider +07-20 [phone] Reason for Visit * Reason Comments Med Refill Encounter Details Date Type Department Care Team (Late st Contact Info) Description 04/19/2025 Refill [facility] [address] [place] [address] Divine Archer, MANUFACTURING STOREPERSON [address] [facility] [address] [place] [address] Type 2 diabetes mellitus Social [...] any time in the past 12 m [facility], were you homeless or living in [...] Description 06/22/2025 1:40 PM EST Office Visit [facility] Comprehensive Vascular Clinic [address] 5th Floor [address] [place] [address] Mary Vicente MD [address] [place] [address] 06/23/2025 8:00 AM EST Office Visit [facility] Comprehensive [facility]ascular Clinic [address] 5th Floor [address], [address] [place] [address] Sheila Marcano PA [address] [place] [address] documented as of this encounter [...] documented as of this encounter Care Teams Kst Operator Relationship Specialty Start Date End Date Malcolm Hayward APRN [address] [place] [address] PCP - General 09/21/23 documented as of this encounter
--- OUTSIDE RECORDS SUMMARY | 2025-06-15 09:43 | XMS_ITS | Encounter Summary ---
Author Organization [facility] Address [address] [id number] Care Team Providers Care Station Cleaning Porter Name Role Phone Malcolm Hayward APRN Primary Care Provider [phone] [phone] Encounter Details Date Type Department Care Team [...] in a snf (including now)? No 04/28/2025 [facility] Utilities Answer Date Recorded In [...] [place] [facility] [address] [facility] 5th Floor [address] [address] Mary Vicente MD [address] [facility] [address] [address] 06/23/2025 8:00 AM EST Office Visit [facility] [address] 5th Floor [address] [address] Sheila Marcano, BLAS [address] [address] documented as of this encounter Visit [...] documented as of this encounter Care Teams Station Cleaning Porter Relationship Specialty Start Date End Date Malcolm Hayward APRN [address] [place] [address] PCP - General 09/21/23 documented as of this encounter
--- OUTSIDE RECORDS SUMMARY | 2025-06-15 09:43 | XMS_ITS | Encounter Summary ---
Author Organization [facility] Address [address] [id number] Care Team Providers Care Taffy Candy Maker Name Role Phone Malcolm Hayward SHEET ROCK INSTALLATION HELPER Primary Care Provider +07-20 [phone] Reason for Visit * Reason Comments Med Refill Encounter Details Date Type Department Care Team (Late st Contact Info) Description 12/02/2024 Refill [facility] [address] [place] [address] Divine Archer, SHEET ROCK INSTALLATION HELPER [address] [facility] [address] [place] [address] Social History Tobacco Use Types [...] Description 06/22/2025 1:40 PM EST Office Visit [facility] Vascular Clinic [address] [place] [address] Mary Vicente MD [address] [facility] [address] [place] [address] 06/23/2025 8:00 AM EST Office Visit [facility]ascular [facility] [address] [place] [address] Sheila Marcano PA [address] [facility] [address] [place] [address] documented as of this encounter [...] documented as of this encounter Care Teams Taffy Candy Maker Relationship Specialty Start Date End Date Malcolm Hayward APRN [address] [place] [address] PCP - General 09/21/23 documented as of this encounter
--- OUTSIDE RECORDS SUMMARY | 2025-06-15 09:43 | XMS_ITS | Encounter Summary ---
Author Organization [facility] Address [address] 4999936 Care Team Providers Care Rn Telemetry Name Role Phone Malcolm Hayward ADALGISA Primary Care Provider [phone] [phone] Reason for Visit * Reason Onset Date Comments HCN - Patient Message 05/24/2025 Call pankaj morrissey HCN Status Update Call #2 05/24/2025 Encounter Details Date Type Department Care Team ([place] st Contact Info) Description 05/24/2025 [facility]phone [facility] [address] [facility] 5th Floor [address] [place] [address] Sheila Marcano, PA [address] [facility] [address] [place] [address] HCN - Patient Message (Call [...] time in the past 12 m [facility], were you homeless or living in a usp (including now)? No 04/28/2025 [facility] Utilities Answer Date Recorded In [...] of the initial request. Best contact number: [phone] Optimal time of day to reach caller: [...] optimal time of day to reach caller: [phone] Note: Please do not reply to this [...] PM EST Office Visit [facility] Comprehensive Vascular Clinic [address] 5th Floor [address] [place] [address] Mary Vicente MD [address] [place] [address] 06/23/2025 8:00 AM EST Office Visit [facility] Comprehensive Vascular Clinic [address] [facility] 5th Floor [address] [place] [address] Sheila Marcano, PA [address] [place] [address] documented as of this encounter [...] documented as of this encounter Care Teams Rn Telemetry Relationship Specialty Start Date End Date Malcolm Hayward APRN [address] [place] [address] PCP - General 09/21/23 documented as of this encounter
--- OUTSIDE RECORDS SUMMARY | 2025-06-15 09:43 | XMS_ITS | Encounter Summary ---
Author Organization [facility] Address [address] [id number] Care Team Providers Care Inspector Electromechanical Name Role Phone Malcolm Hayward ADALGISA Primary Care Provider [phone] [phone] Encounter Details Date Type Department Care Team ([facility] st Contact Info) Description 05/29/2025 Telephone [facility] [address] [place] [address] Pcp, No [address] [place] [address] Social History Tobacco Use Types Packs/Day Years [...] time in the past 12 m [facility], were you homeless or living in a skilled nursing (including now)? No 04/28/2025 [facility] Utilities Answer Date Recorded In the past [...] Please call with updates Best contact number: [phone] (mobile) Optimal time of day to reach caller: ANYTIME Additional comments/information from caller: None Note: Please do not reply to this message. Follow-up communication and further actions as a result of this message need to be communicated with the patient directly, if the patient is not active onMyChart. If the patient is active on MyChart, they will receive notification of the communication/outcome via [employer]. documented in this encounter Plan of Treatment Upcoming Encounters Date Type Department Care Team (Late st Contact Info) Description 06/22/2025 1:40 PM EST Office Visit [facility] Comprehensive Vascular Clinic [address] 5th Floor [address] [place] [address] Mary Vicente MD [address] [place] [address] 06/23/2025 8:00 AM EST Office Visit [facility] V[facility] Clinic [address] [facility] 5th Floor [address] [place] [address] Sheila Marcano PA [address] [place] [address] documented as of this encounter [...] as of this encounter Care Teams Inspector Electromechanical Relationship Specialty Start Date End Date Malcolm Hayward APRN [address] [place] [address] PCP - General 09/21/23 documented as of this encounter
--- OUTSIDE RECORDS SUMMARY | 2025-06-15 09:43 | XMS_ITS | Encounter Summary ---
Author Organization [facility] Address [address] [id number] Care Team Providers Care Efficiency Engineer Name Role Phone Malcolm Hayward ADALGISA Primary Care Provider +07-20 [phone] Reason for Visit * Reason Onset Date Comments HCN Clinical Concern/Question 05/19/2025 HCN Status Update Call #1 05/19/2025 Encounter Details Date Type Department Care Team (Late st Contact Info) Description 05/19/2025 Telephone [facility] [address] [facility] 5th Floor [address] [place] [address] Sheila Marcano, BLAS [address] [facility] [address] [place] [address] HCN Clinical Concern/Question; HCN Status [...] time in the past 12 m [facility], were you homeless or living in a residential (including now)? No 04/28/2025 [facility] Utilities Answer Date Recorded In the past [...] offloading shoe no longer needed per pt's chief cook. Praveen denied any other needs or concerns. [...] the initial request. Best contact number: Other: [phone] Optimal time of day to reach caller: [...] will receive notification of the communication/outcome via [employer]. * Telephone Encounter - Diane Daniels - 05/19/2025 2:11 PM EST Clinical Concern/Question Reason for Call: Praveen from [facility] is calling to see if the patient could get a off loading boot so he could be moved to their facility or if he has to wait until his next carlos a with the clinic on 05/30/25. Please call praveen back with info. Thank you Best contact number: Other: [phone] Optimal time of day to reach caller: [...] Description 06/22/2025 1:40 PM EST Office Visit [facility] Comprehensive Vascular Clinic [address] [facility] 5th Floor [address] [place] [address] Mary Vicente MD [address] [place] [address] 06/23/2025 8:00 AM EST Office Visit [facility] V[facility] Clinic [address] [facility] 5th Floor [address] [place] [address] Sheila Marcano, PA [address] [place] [address] documented as of this encounter [...] documented as of this encounter Care Teams Efficiency Engineer Relationship Specialty Start Date End Date Malcolm Hayward APRN [address] [place] [address] PCP - General 09/21/23 documented as of this encounter
--- OUTSIDE RECORDS SUMMARY | 2025-06-15 09:43 | XMS_ITS | Encounter Summary ---
Author Organization [facility] Address [address] [place] [address] Care Team Providers Care Handicrafts Teacher Name Role Phone Malcolm Hayward ADALGISA Primary Care Provider +07-20 [phone] Encounter Details Date Type Department Care Team (Late st Contact Info) Description 05/24/2025 Telephone Vascular Surgery [address] [place] [address] Rohith Ramires, LASTING MACHINE OPERATOR BED None Social History Tobacco Use Types Packs/Day [...] a group home (including now)? No 04/28/2025 [facility] Utilities Answer Date Recorded In the [...] Description 06/22/2025 1:40 PM EST Office Visit [facility] Comprehensive Vascular Clinic [address] 5th [address] [place] [address] Mary Vicente MD [address] [place] [address] 06/23/2025 8:00 AM EST Office Visit [facility] Comprehensive Vascular Clinic [address] 5th Floor [address] [place] [address] Sheila Marcano PA [address] [place] [address] documented as of this encounter [...] documented as of this encounter Care Teams Handicrafts Teacher Relationship Specialty Start Date End Date Malcolm Hayward APRN [address] [place] [address] PCP - General 09/21/23 documented as of this encounter
--- OUTSIDE RECORDS SUMMARY | 2025-06-15 09:43 | XMS_ITS | Encounter Summary ---
Author Organization [facility] Address [address] [place] [address] Care Team Providers Care Accounts Receivable Manager Name Role Phone Malcolm Hayward ADALGISA Primary Care Provider +07-20 [phone] Encounter Details Date Type Department Care Team ([facility] st Contact Info) Description 05/01/2025 Orders Only External Location [address] [place] [address] Provider, External Social History Tobacco Use Types [...] in a long-term (including now)? No 04/28/2025 [facility] Utilities Answer Date Recorded In the [...] Indicated 05/05/2025 8:00 AM EDT Nitza Gonzalez, LLOA * Question Answer Date of Assessment Author [...] [place] [facility] [address] 5th Floor [address] [place] [address] Mary Vicente MD [address] [place] [address] 06/23/2025 8:00 AM EST Office Visit [facility] [address] 5th Floor [address] [place] [address] Sheila Marcano PA [address] [facility] [address] [place] [address] documented as of this encounter [...] documented as of this encounter Care Teams Accounts Receivable Manager Relationship Specialty Start Date End Date Malcolm Hayward APRN [address] [place] [address] PCP - General 09/21/23 documented as of this encounter
--- OUTSIDE RECORDS SUMMARY | 2025-06-15 09:43 | XMS_ITS | Clinical Summary ---
Author Organization [facility] Address [address] [place] [address] Care Team Providers Care Mattress Finisher Name Role Phone Malcolm Hayward ADALGISA Primary Care Provider [phone] Allergies Active Allergy Reactions Criticality Noted Date [...] g 3 Active Insulin Pen Needle (Pen Mercer) 31G X 5 MM [facility] USE TO INJECT INSULIN 3 TIMES PER [...] a day. 022 2024 Discontinued HYDROcodone-aceta minophen (Wyanet) 10-325 MG tablet Take 1 tablet by mouth every 6 hours as needed. 2024 Discontinued insulin regular (HumuLIN R,NovoLIN R) 100 UNIT/ML injection vialIndications:T ype 2 Diabetes Mellitus Inject 200 Units under the skin 2 times a day with meals. 2024 Discontinued HYDROcodone-aceta minophen (Wyanet) 10-325 MG tablet Take 1 tablet by [...] Encounters Date Type Department Care Team Description 06/13/2025 Telephone Vascular Surgery [address] [place] [address] Rohith Ramires, RN 06/12/2025 Telephone [facility] [address] [place] [address] Mary Vicente MD 06/12/2025 Telephone [facility] [address] [place] [address] Mary Vicente MD HCN Clinical Concern/Question 05/29/2025 Telephone [facility] [address] [place] [id number] Pcp, No 05/26/2025 Telephone Wound Care [address] [place] [address] Sheila Marcano PA 05/24/2025 Telephone [facility] [address] [place] [address] Sheila Marcano PA HCN - Patient Message (Call request ); HCN Status Update Call #2 05/24/2025 Telephone Vascular Surgery [address] [place] [phone] Rohith Ramires RN 05/24/2025 Travel 05/19/2025 Telephone [facility] [address] [place] [address] Sheila Marcano PA HCN Clinical Concern/Question; HCN Status Update Call #1 05/18/2025 Travel 05/17/2025 Travel 05/01/2025 7:30 AM EDT - 05/01/2025 8:50 AM EDT Surgery [facility] OPERATING ROOM [address] [place] [phone] Mary Vicente MD AMPUTATION,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 4th 05/01/2025 7:28 AM EDT Anesthesia Event [facility] RO[facility] [address] [place] [address] Gilberto Rivera MD Ford, Richard F, MD 05/01/2025 Orders Only External Location [address] [place] [address] Provider, External 05/01/2025 Travel 04/28/2025 Travel 04/27/2025 9:29 PM EDT - 05/18/2025 11:48 AM EST Hospital Encounter [facility] Inpatient [address] [place] [address] Jessa Law MD Chapman, Steven B, Greg Armenta MD Oo, MD Thomas Amador Miranda E, MD Ramay, Tehreem K, MD Bhatti, Wily R, DO Other chronic osteomyelitis of right foot (CMS/HCC) (Primary Dx); Diabetic foot ulcer with osteomyelitis; Uncontrolled type 2 diabetes mellitus with hyperglycemia, with long-term current use of insulin; Type 2 diabetes mellitus with diabetic peripheral angiopathy without gangrene, with long-term current use of insulin Discharge Disposition: Senior Living Facility 04/27/2025 [facility] [address] [place] [address] Divine Archer, ORACLE DATABASE CONSULTANT Type 2 diabetes mellitus from Last 3 [...] living in a penitentiary (including now)? No 04/28/2025 [facility] Utilities Answer Date Recorded In the [...] [place] [facility] [address] [facility] 5th Floor Wing [address] [place] [address] Mary Vicente MD [address] [place] [address] 06/23/2025 8:00 AM EST Office Visit [place] [facility] [address] 5th Floor [address] [place] [address] Sheila Marcano PA [address] [place] [address] Health Maintenance Due Date Last Done Comments [facility]-Medicare Annual Wellness (AWV) 1977 [facility]-Infant/Child/Adol SDOH Screenings 1977 Diabetes: Dental Exam 1987 [facility]-DTaP,Tdap,and Td Vaccines (1 - Tdap) 1996 [facility]-Hepatitis B Vaccines (1 of 3 - 19+ 3-dose series) 1996 CT Colonography 2022 Colonoscopy 2022 FIT-DNA 2022 FIT 2022 FOBT 2022 Sigmoidoscopy 2022 [facility]-Colorectal Cancer Screening 2022 [id number] Vaccine (3 - season) 2025 02/22/2021, 01/25/2021 [facility]-Influenza Vaccine (#1) 2025 [facility]-Diabetes: Hemoglobin A1C 07/29/2025, 12/12/2024, 01/13/2024, Additional history exists [facility]-Depression Screening 09/13/2025 09/13/2024, 0310/2024 [facility]- SDOH Screenings 10/27/2025 [facility]-Adult SDOH Screenings [...] of96 resultswithin the time period is included. Pathologist [facility] POCT Glucose 124(H) 74 - 99 mg/dL 05/18/2025 8:11 AM EST [facility] Comment:Accuracy of a glucos e result [...] for testing. Comment 05/18/2025 8:11 AM EST [facility] Hot Wound Spring Production Supervisor ID Char Hinojosa 05/18/2025 8:11 AM EST [facility] Device ID [id number] 05/18/2025 8:11 AM EST [facility] Specimen Type POC Capillary 05/18/2025 8:11 AM [facility] Blood Capillary blood specimen / Unknown 05/18/2025 8:09 AM EST 05/18/2025 8:11 AM EST Wily Goyal DO LAB POINT OF CARE TE ST DOCKED DEVICE UNSOLICITED RESULTS Final Result [facility] [address] [place] [address] * ECHO, ADULT TRANSTHORACIC COMPLETE W/ CONTRAST [...] Ao Diam 37 mm HANK ISCV PA NJ(ACCEL) 24.6 mmHg HANK ISCV LV mean PG [...] is no recent study available for direct glyy-nq-fzji comparison. Left Ventricle The left ventricle is [...] is no recent study available for direct ldrw-rp-jvkn comparison. [facility] Jay Jay DO CV ECHO PROCEDURES Final Result * ECG Adult (05/16/2025 3:33 PM EST) Only the most recent of6 resultswithin the time period is included. EKG DIAGNOSIS CLASS Abnormal MUSE ECG Ventricular Rate 58 BPM MUSE ECG Atrial Rate 58 BPM MUSE ECG NJ Interval 184 ms MUSE ECG QRSD Interval 158 ms MUSE ECG QT Interval 496 ms MUSE ECG QTC Interval 486 ms MUSE ECG P [place] 30 degrees MUSE ECG R [place] -35 degrees MUSE ECG T Wave [place] -5 degrees MUSE ECG Diagnosis Sinus bradycardia MUSE ECG Diagnosis Left axis deviation MUSE ECG Diagnosis Right bundle branch block MUSE ECG Diagnosis Minimal voltage criteria for LVH, may be normal variant ( R in aVL ) MUSE ECG Diagnosis Abnormal ECG MUSE ECG Diagnosis MUSE ECG Diagnosis Confirmed by Lorie Montejo ([id number]) on 05/18/2025 12:15:08 AM MUSE ECG 05/16/2025 3:33 PM EST 05/18/2025 12:15 AM EST Wily Goyal DO ECG ORDERABLES Final Result MUSE ECG * (ABNORMAL) CBC and Differential (05/16/2025 4:08 AM EST) Only the most recent of12 resultswithin the time period is included. Pathologist [facility] WBC Count 7.97 3.70 - 10.30 10*3/uL LAB HEMATOLOGY METHOD 05/16/2025 4:[address] [facility] RBC Count 4.27(L) 4.60 - 6.10 10*6/uL LAB HEMATOLOGY METHOD 05/16/2025 4:[address] [facility] HGB 9.5(L) 13.7 - 17.5 g/dL LAB HEMATOLOGY METHOD 05/16/2025 4:[address] [facility] HCT 31.6(L) 40.0 - 51.0 % LAB HEMATOLOGY METHOD 05/16/2025 4:[address] [facility] Platelet Count 264 155 - 369 10*3/uL LAB HEMATOLOGY METHOD 05/16/2025 4:[address] [facility] MCV 74(L) 79 - 98 fL LAB HEMATOLOGY METHOD 05/16/2025 4:[address] [facility] MCH 22.2(L) 26.0 - 32.0 pg LAB HEMATOLOGY METHOD 05/16/2025 4:[address] [facility] MCHC 30.1(L) 30.7 - 35.5 g/dL LAB HEMATOLOGY METHOD 05/16/2025 4:[address] [facility] RDW 17.9(H) 11.5 - 14.5 % LAB HEMATOLOGY METHOD 05/16/2025 4:[address] [facility] MPV 9.2 8.8 - 12.5 fL LAB HEMATOLOGY METHOD 05/16/2025 4:[address] [facility] nRBC 0.0 <=0.0 per 100 WBCs LAB HEMATOLOGY METHOD 05/16/2025 4:[address] [facility] Differential Type Automated LAB HEMATOLOGY METHOD 05/16/2025 4:[address] [facility] Neutrophils % 67 % LAB HEMATOLOGY METHOD 05/16/2025 4:[address] [facility] Lymphocytes % 16 % LAB HEMATOLOGY METHOD 05/16/2025 4:[address] [facility] Monocytes % 12 % LAB HEMATOLOGY METHOD 05/16/2025 4:[address] [facility] Eosinophils % 3 % LAB HEMATOLOGY METHOD 05/16/2025 4:[address] [facility] Basophils % 1 % LAB HEMATOLOGY METHOD 05/16/2025 4:[address] [facility] Immature Granulocytes % 1 % LAB HEMATOLOGY METHOD 05/16/2025 4:[address] [facility] Neutrophils Absolute 5.39 1.60 - 6.10 10*3/uL LAB HEMATOLOGY METHOD 05/16/2025 4:[address] [facility] Lymphocytes Absolute 1.30 1.20 - 3.90 10*3/uL LAB HEMATOLOGY METHOD 05/16/2025 4:[address] [facility] Monocytes Absolute 0.93(H) 0.30 - 0.90 10*3/uL LAB HEMATOLOGY METHOD 05/16/2025 4:[address] [facility] Eosinophils Absolute 0.26 0.00 - 0.50 10*3/uL LAB HEMATOLOGY METHOD 05/16/2025 4:[address] [facility] Basophils Absolute 0.05 0.00 - 0.10 10*3/uL LAB HEMATOLOGY METHOD 05/16/2025 4:[address] [facility] Immature Granulocytes Absolute 0.04 0.00 - 0.06 10*3/uL LAB HEMATOLOGY METHOD 05/16/2025 4:26 AM EST [facility] Blood Venous blood specimen / Unknown Venipuncture / Unknown 05/16/2025 4:08 AM EST 05/16/2025 4:[address] [facility] - 05/16/2025 4:26 AM EST Therapeutic decision making should be based on absolute values, rather than percentages. us Selin Lee MD LAB BLOOD ORDERABLES Final Re sult Performing Organization Address City/[facility]/ZIP Co de Phone Number [facility] [address] [place] [address] * Phosphorus, Plasma (05/16/2025 4:08 AM EST) Only the most recent of11 resultswithin the time period is included. Phosphorus, Plasma 3.7 2.5 - 4.5 mg/dL 05/16/2025 4:48 AM EST [facility] Blood Venous blood specimen / Unknown Venipuncture / Unknown 05/16/2025 4:08 AM EST 05/16/2025 4:16 AM EST us Selin Lee MD LAB BLOOD ORDERABLES Final Re sult Performing Organization Address City/[facility]/[place] [address] * (ABNORMAL) Magnesium, Plasma (05/16/2025 4:08 AM [...] Re sult [facility] [address] [place] [address] * (ABNORMAL) Basic Metabolic Panel, Plasma (05/16/2025 [...] MD LAB BLOOD ORDERABLES Final Re sult [facility] [address] [place] [address] * PSA, diagnostic (05/06/2025 12:27 PM EDT) Pathologist [facility] PSA, Diagnostic, Serum 0.03 0.00 - 2.50 ng/mL 05/06/2025 1:[address] [facility] Blood Venous blood specimen / Unknown Venipuncture / Unknown 05/06/2025 12:27 PM EDT 05/06/2025 12:[address] [facility] - 05/06/2025 1:10 PM EDT Performed by Bella electrochemiluminescent immunoassay which is standardized against the PSA [place] Reference Standard (WHO 96/670). Results obtained with different test methods or kits cannot be used interchangeably. Diane Guzman MD LAB BLOOD ORDERABLES Final Result Performing Organization Address City/[facility]/ZIP Co de Phone Number [facility] [address] [place] [address] * Creatine Kinase (CK), Total (05/03/2025 6:22 PM EDT) Only the most recent of4 resultswithin the time period is included. [facility] Creatine Kinase, Plasma 54 49 - 320 U/L 05/03/2025 7:13 PM EDT [facility] Blood Venous blood specimen / Unknown Venipuncture / Unknown 05/03/2025 6:22 PM EDT 05/03/2025 6:38 PM EDT Diane Guzman MD LAB BLOOD ORDERABLES Final Result Performing Organization Address City/[facility]/ZIP Co de Phone Number [facility] [address] [place] [address] * (ABNORMAL) Comprehensive metabolic panel (05/03/2025 6:22 PM EDT) Only the most recent of2 resultswithin the time period is included. [facility] Glucose, Plasma 290(H) 74 - 99 mg/dL [...] BLOOD ORDERABLES Final Result Performing Organization Address [facility] Co de Phone Number [facility] [address] [place] [address] * Hepatitis B Surface Antibody, Quantitative (05/03/2025 [...] BLOOD ORDERABLES Final Result Performing Organization Address [facility] de Phone Number [facility] [address] [place] [address] * Hepatitis A Antibody IgG (05/03/2025 3:16 AM EDT) Hepatitis A Antibody IgG Negative Negative 05/03/2025 4:[address] [facility] Blood Venous blood specimen / Unknown Venipuncture / Unknown 05/03/2025 3:16 AM EDT 05/03/2025 3:24 AM EDT us Diane Guzman MD LAB BLOOD ORDERABLES Final Result Performing Organization Address [facility] Co de Phone Number [facility] [address] [place] [address] * Hepatitis B Core Total Antibody IgG,IgM (05/03/2025 3:16 AM EDT) Pathologist [facility] Hepatitis B Core Total Antibody IgG,IgM Negative Negative 05/03/2025 4:[address] [facility] Blood Venous blood specimen / Unknown Venipuncture / Unknown 05/03/2025 3:16 AM EDT 05/03/2025 3:24 AM EDT us Diane Gzuman MD LAB BLOOD ORDERABLES Final Result Performing Organization Address City/[facility]/ZIP Co de Phone Number [facility] [address] [place] [address] * Hepatitis B Surface Antigen (05/03/2025 3:16 AM EDT) [facility] Hepatitis B Surf Antigen Negative Negative 05/03/2025 4:[address] [facility] Blood Venous blood specimen / Unknown Venipuncture / Unknown 05/03/2025 3:16 AM EDT 05/03/2025 3:24 AM EDT us Diane Guzman MD LAB BLOOD ORDERABLES Final Result Performing Organization Address City/[facility]/[place] [address] * Nasopharyngeal Respiratory Panel (05/02/2025 1:05 PM EDT) [facility] Nasopharyngeal Respiratory PCR Interpretation Not Detected for [...] Respiratory PCR Panel is performed using the [employer] ePlex instrument. This test is FDA approved for use with Nasopharyngeal swabs only. This test is used for clinical purposes. It should not be regarded as investigational or for research. The [facility] is certified under the Clinical Laboratory Improvement Amendments of 1988 (CLIA-88) as qualified to perform high complexity clinical laboratory testing. Diane Guzman MD LAB MICROBIOLOGY - GENERAL ORDERABLES Final Result [facility] [address] [place] [address] * Surgical Pathology Exam (05/01/2025 8:13 AM EDT) Case Report Surgical Pathology Case: [id number] Authorizing Provider: Mary Vicente MD Collected: 05/01/2025 0813 Ordering Location: [facility] A OPERATING ROOM Received: 05/01/2025 0917 [...] ACUTE OSTEOMYELITIS IDENTIFIED. 05/09/2025 9:56 AM EDT [facility] Amendment electronically signed by Vidya Ly [...] The wound extends into the underlying bone. Information Delivery Analyst sections are submitted as follows: A1-A2: Necrotic lateral skin A3: Bone underlying gaping wound, following decalcification A4: Bone margin, following decalcification BLAS Kwok ([facility]) B. R 5TH TOE MARGIN The [...] LAB PATHOLOGY ORDERABLES Edited Result - Final [facility] [address] [place] [address] * PB POINT OF CARE IMAGING PLACEHOLDER [...] monitoring: continuous pulse ox, heart rate and housing project manager Block type: adductor canal and popliteal Laterality: [...] ORDERA BLES Final Result Performing Organization Address City/[facility] Co de Phone Number BLOOD BANK [address] [place] [address], [place] * POC Imaging (05/01/2025) Anatomical Region [...] EDT 04/29/2025 3:19 AM EDT us k Josafat De La Fuente ORACLE DATABASE CONSULTANT, DNP LAB BLOOD ORDERABLES Fin al Result Performing Organization Address City/[facility]/ZIP Co de Phone Number [facility] [address] [place] [address] * TSH (04/29/2025 3:04 AM EDT) Thyroid Stimulating Hormone, Plasma 1.58 0.40 - 4.20 uIU/mL 04/29/2025 3:[address] [facility] Blood Venous blood specimen / Unknown Venipuncture / Unknown 04/29/2025 3:04 AM EDT 04/29/2025 3:19 AM EDT us Sy De La Fuente ORACLE DATABASE CONSULTANT, DNP LAB BLOOD ORDERABLES Fin al Result Performing Organization Address [facility] de Phone Number [facility] [address] [place] [address] * (ABNORMAL) Hemoglobin A1c (04/29/2025 3:04 AM [...] Adults <6.0% Children and Adolescents <7.5% Source: [place] [employer]. Standards of medical care in diabetes,2017. Diabetes Care.2017:40 (suppl 1):S1-S135. Sy Josafat Leisa DIANA, DNP LAB BLOOD ORDERABLES Fin al Result Performing Organization Address City/[facility] Co de Phone Number [facility] [address] [place] [address] * Folate (04/29/2025 3:04 AM EDT) Folate, Serum 10.5 >4.6 ng/mL 04/29/2025 4:[address] [facility] Blood Venous blood specimen / Unknown Venipuncture / Unknown 04/29/2025 3:04 AM EDT 04/29/2025 3:20 AM EDT us Dirk A Uatsdin ORACLE DATABASE CONSULTANT, DENISE LAB BLOOD ORDERABLES Fin al Result [facility] [address] [place] [address] * Ferritin (04/29/2025 3:04 AM EDT) Ferritin, Serum 40 20 - 400 ng/mL 04/29/2025 4:[address] [facility] Blood Venous blood specimen / Unknown Venipuncture / Unknown 04/29/2025 3:04 AM EDT 04/29/2025 3:20 AM EDT Sy De La Fuente APRN, DENISE LAB BLOOD ORDERABLES Fin al Result Performing Organization Address [facility] Co de Phone Number [facility] [address] [place] [address] * Vitamin B12 (04/29/2025 3:04 AM EDT) Vitamin B12, Serum 338 210 - 1,033 pg/mL 04/29/2025 4:06 AM EDT [facility] Blood Venous blood specimen / Unknown Venipuncture / Unknown 04/29/2025 3:04 AM EDT 04/29/2025 3:20 AM EDT Sy De La Fuente APRN, DENISE LAB BLOOD ORDERABLES Fin al Result Performing Organization Address City/[facility]/ZIP Co de Phone Number [facility] [address] [place] [address] * Cortisol (04/29/2025 3:04 AM EDT) Cortisol 2.80 Before 10am: 3.7 - 19.4. After 5pm: 2.9 - 17.3 ug/dL 04/29/2025 4:[address] [facility] Comment:Testing performed on [facility], standardized against JAIL Reference Standard concentration values assigned by LC-MS/MS and verified by BCR 192 and BCR 193 certified reference materials. Blood Venous blood specimen / Unknown Venipuncture / Unknown 04/29/2025 3:04 AM EDT 04/29/2025 3:19 AM EDT us Sy De La Fuente ORACLE DATABASE CONSULTANT, DNP LAB REF LAB BLOOD AND FL UID ORD Final Result [facility] [address] [place] [address] * VAS Ankle Brachial Index - GABBI [...] are demonstrated at the levels of the BLACK OXIDE COATING EQUIPMENT TENDER and DPA. Segmental pressures are within normal limits with a BLACK OXIDE COATING EQUIPMENT TENDER GABBI of 1.1 (172 mmHg) and a DPA GABBI of 1.0 (149 mmHg). Digit pressures are of 122 mmHg. Left: Multiphasic waveforms are demonstrated at the levels of the BLACK OXIDE COATING EQUIPMENT TENDER and DPA. Segmental pressures are within normal limits with a BLACK OXIDE COATING EQUIPMENT TENDER GABBI of 1.1 (164 mmHg) and a DPA GABBI of 1.0 (153 mmHg). Digit pressures are of 151 mmHg. Procedure Note Chris Schaefer MD - 04/28/2025 CLINICAL INDICATION: Diabetic foot ulcer TECHNIQUE: Non-invasive, continuous wave Doppler exam with segmental pressures andspectral analysis of the lower extremity was performed. COMPARISON: None. FINDINGS: Right: Multiphasic waveforms are demonstrated at the levels of the BLACK OXIDE COATING EQUIPMENT TENDER andDPA. Segmental pressures are within normal limits with a BLACK OXIDE COATING EQUIPMENT TENDER GABBI of 1.1(172 mmHg) and a DPA GABBI of 1.0 (149 mmHg). Digit pressures are of 122mmHg. Left: Multiphasic waveforms are demonstrated at the levels of the BLACK OXIDE COATING EQUIPMENT TENDER andDPA. Segmental pressures are within normal limits with a BLACK OXIDE COATING EQUIPMENT TENDER GABBI of 1.1(164 mmHg) and a DPA [...] on04/28/2025 4:14 PM Sy De La Fuente ORACLE DATABASE CONSULTANT, DNP CV VASCULAR PROCEDURES F inal [...] and its performance characteristics determined by the [facility]. Although the media is FDA-approved, it is not FDA-approved for all specimen types submitted. The FDA has determined that such clearance or approval is not necessary. This test is used for surveillance purposes. It should not be regarded as investigational or for research. The [facility] is certified under the Clinical Laboratory Improvement Amendments of 1988 (CLIA-88) as qualified to perform high complexity clinical laboratory testing. Sy De La Fuente APRN, DNP LAB MICROBIOLOGY - GENER AL ORDERABLES Final Result Performing Organization Address City/[facility]/ZIP Co de Phone Number [facility] [address] [place] [address] * Lavender Top (04/28/2025 8:13 AM EDT) Extra Hold for add-ons 04/28/2025 11:[address] [facility] Comment:Auto resulted. Blood Venous blood specimen / Unknown 04/28/2025 8:13 AM EDT 04/28/2025 8:19 AM EDT Marjorie Myers MD LAB BLOOD ORDERABLES Final Resul t Performing Organization Address City/[facility] Co de Phone Number [facility] [address] [place] [address] * Light Green Top (04/28/2025 8:13 AM EDT) Extra Hold for add-ons 04/28/2025 11:[address] [facility] Comment:Auto resulted. Blood Venous blood specimen / Unknown 04/28/2025 8:13 AM EDT 04/28/2025 8:19 AM EDT Marjorie Myers MD LAB BLOOD ORDERABLES Final Resul t Performing Organization Address City/[facility] Co de Phone Number [facility] [address] [place] [address] * APTT (04/28/2025 8:13 AM EDT) aPTT 32 25 - 35 sec 04/28/2025 8:33 AM EDT [facility] Blood Venous blood specimen / Unknown Venipuncture / Unknown 04/28/2025 8:13 AM EDT 04/28/2025 8:18 AM EDT Sy De La Fuente APRN, DNP LAB BLOOD ORDERABLES Fin al Result Performing Organization Address [facility] Co de Phone Number [facility] [address] [place] [address] * (ABNORMAL) PT/INR (04/28/2025 8:13 AM EDT) [...] INR 2.5 to 3.[address] INR 2.5 to 3.5 us Sy De La Fuente APRN, DENISE LAB BLOOD ORDERABLES Fin deirdre Result Performing Organization Address [facility] Phone Number [facility] [address] [place] [address] * CT Foot Right w IV Contrast [...] MICROBIOLOGY - GENERAL SANYA DOMINGUEZ Final Result [facility] [address] [place] [address] * (ABNORMAL) Blood gas, venous (04/27/2025 10:16 [...] ORDERABLES Final Resu lt Performing Organization Address [facility]/ZIP Co de Phone Number [facility] [address] [place] [address] * ED HIV 1/2 Antibody/Antigen Screen w/Reflex [...] ORDERABLES Final Res ult Performing Organization Address [facility] Co de Phone Number [facility] [address] [place] [address] * Beta-Hydroxybutyric Acid (04/27/2025 9:37 PM EDT) Beta-Hydroxybut yric Acid, Plasma 0.23 <=0.27 mmol/L 04/27/2025 10:[address] [facility] Blood Venous blood specimen / Unknown Venipuncture / Unknown 04/27/2025 9:37 PM EDT 04/27/2025 9:40 PM EDT Jessa Law MD LAB BLOOD ORDERABLES Final Resu lt Performing Organization Address City/[facility]/ZIP Co de Phone Number [facility] [address] [place] [address] * (ABNORMAL) Procalcitonin (04/27/2025 9:37 PM EDT) [...] predict 28 day mortality risk. Please consult [email or web address]-zly-dyxiscvefb.Anctu for more information. Test performed at [facility]. us Sy De La Fuente APRN, DENISE LAB BLOOD ORDERABLES Fin al Result Performing Organization Address City/[facility]/ZIP Co de Phone Number [facility] [address] [place] [address] * Hepatitis C Antibody - ED (04/27/2025 9:37 PM EDT) Hepatitis C Antibody Negative Negative 04/27/2025 10:[address] [facility] Blood Venous blood specimen / Unknown Venipuncture / Unknown 04/27/2025 9:37 PM EDT 04/27/2025 10:00 PM EDT us Pool Jean MD LAB BLOOD ORDERABLES Final Res ult [facility] [address] [place] [address] * (ABNORMAL) Sed rate, automated (04/27/2025 9:37 PM EDT) Sedimentation Rate >111(H) <15 mm/hr 2024 11:[address] [facility] Blood Venous blood specimen / Unknown Venipuncture / Unknown 04/27/2025 9:37 PM EDT 04/27/2025 9:40 PM EDT us Jessa Law MD LAB BLOOD ORDERABLES Final Resu lt Performing Organization Address [facility]/ZIP Co de Phone Number [facility] [address] [place] [address] * (ABNORMAL) C-reactive protein (04/27/2025 9:37 PM [...] ORDERABLES Final Res ult Performing Organization Address [facility] Co de Phone Number [facility] [address] [place] [address] from Last 3 Months Insurance MEDICARE Advance Directives * Full Code (Latest [...] updated to appropriate status: Yes Care Teams Mattress Finisher Relationship Specialty Start Date End Date Malcolm Hayward APRN [address] [place] [id number] PCP - General 09/21/23
--- OUTSIDE RECORDS SUMMARY | 2025-06-15 09:43 | XMS_ITS | Encounter Summary ---
Author Organization [facility] Address [address] [id number] Care Team Providers Care Solar Thermal Technician Name Role Phone Malcolm Hayward APRN Primary Care Provider [phone] Encounter Details Date Type Department Care Team [...] in the past 12 m [facility], were you homeless or living in a correction (including now)? No 04/28/2025 [facility] Utilities Answer Date Recorded In the past [...] 1 Month) No 05/18/2025 8:00 AM Kylee Rvai RN 6. Suicidal Behavior (Lifetime) No 8:00 AM Kylee Ravi RN documented as of this encounter Plan of Treatment Upcoming Encounters Date Type Department Care Team (Late st Contact Info) Description 06/22/2025 1:40 PM EST Office Visit [facility] [address] [facility] 5th Floor [address] [place] [address] Mary Vicente MD [address] [place] [address] 06/23/2025 8:00 AM EST Office Visit [place] [facility] [address] 5[address] Floor [address] [place] [address] Sheila Marcano PA [address] [place] [address] documented as of this encounter [...] as of this encounter Care Teams Solar Thermal Technician Relationship Specialty Start Date End Date Malcolm Hayward APRN [address] [place] [id number] PCP - General 09/21/23 documented as of this encounter
--- OUTSIDE RECORDS SUMMARY | 2025-06-15 09:43 | XMS_ITS | Encounter Summary ---
Author Organization [facility] Address [address] [id number] Care Team Providers Care Observer Electrical Prospecting Name Role Phone Malcolm Hayward APRN Primary Care Provider [phone] Encounter Details Date Type Department Care Team [...] in a fdc (including now)? No 04/28/2025 [facility] Utilities Answer Date Recorded In [...] Visit [place] [facility] [address] [facility] 5th Floor [address] [place] [address] Mary Vicente MD [address] [place] [address] [address] [place] [address] 06/23/2025 8:00 AM EST Office Visit [place] [facility] [address] 5[address] [place] [address] Sheila Marcano PA [address] [place] [address] documented as of this encounter [...] Date End Date Malcolm Hayward APRN [address] [place] [id number] PCP - General 09/21/23 documented as of this encounter
--- OUTSIDE RECORDS SUMMARY | 2025-06-15 09:43 | XMS_ITS | Encounter Summary ---
Author Organization [facility] Address [address] [id number] Care Team Providers Care Disulfurizer Tender Name Role Phone Malcolm Hayward ADALGISA Primary Care Provider [phone] Encounter Details Date Type Department Care Team (Late st Contact Info) Description 05/26/2025 Telephone Wound Care [address] [place] [address] Sheila Marcano, BLAS [address] [place] [address] Social History Tobacco Use Types [...] in the past 12 m [facility], were you homeless or living in a half-way (including now)? No 04/28/2025 [facility] Utilities Answer Date Recorded In the [...] a culture done of his wound at [facility] and it came back positive for pseudomonas aeruginosa. She said [facility] said oral abx are not going to work, so she is wondering what she needs to do? Get in touch w/ ID, bring him to ED to be admittedfor IV abx? Asking for a call back. Thanks! Best contact number: Other: [phone] Optimal time of day to reach caller: [...] 06/22/2025 1:40 PM EST Office Visit [facility] [address] [facility] 5th Floor [address] [place] [address] Mary Vicente MD [address] [place] [address] 06/23/2025 8:00 AM EST Office Visit [facility] [address] [place] [address] Sheila Marcano PA [address] [place] [address] documented as of this encounter [...] documented as of this encounter Care Teams Disulfurizer Tender Relationship Specialty Start Date End Date Malcolm Hayward APRN [address] [place] [address] PCP - General 09/21/23 documented as of this encounter
--- OUTSIDE RECORDS SUMMARY | 2025-06-15 09:43 | XMS_ITS | Encounter Summary ---
Author Organization [facility] Address [address] [id number] Care Team Providers Care Manager Animation Name Role Phone Malcolm Hayward APRN Primary Care Provider [phone] Encounter Details Date Type Department Care Team [...] in the past 12 m [facility], were you homeless or living in a group home (including now)? No 04/28/2025 [facility] Utilities Answer Date Recorded In [...] [place] [facility] [address] [facility] 5th Floor [address] [place] [address] Mary Vicente MD [address] [facility] [address] [place] [address] 06/23/2025 8:00 AM EST Office Visit [place] [facility] [address] 5[address] [place] [address] Sheila Marcano, BLAS [address] [place] [address] documented as of this encounter [...] as of this encounter Care Teams Manager Animation Relationship Specialty Start Date End Date Malcolm Hayward APRN [address] [place] [id number] PCP - General 09/21/23 documented as of this encounter
--- OUTSIDE RECORDS SUMMARY | 2025-06-15 09:43 | XMS_ITS | Encounter Summary ---
Author Organization [facility] Address [address] [id number] Care Team Providers Care Reconsignment Clerk Name Role Phone Malcolm Hayward APRN Primary Care Provider [phone] Encounter Details Date Type Department Care Team [...] any time in the past 12 m [facility], were you homeless or living in a fpc (including now)? No 04/28/2025 [facility] Utilities Answer Date Recorded In [...] Description 06/22/2025 1:40 PM EST Office Visit [facility] [address] [place] [address] Mary Vicente MD [address] [facility] [address] [place] [address] 06/23/2025 8:00 AM EST Office Visit [facility] [address] [facility] 5th Floor [address] [place] [address] Sheila Marcano PA [address] [facility] [address] [place] [address] documented as of this encounter [...] documented as of this encounter Care Teams Reconsignment Clerk Relationship Specialty Start Date End Date Malcolm Hayward APRN [address] [place] [address] PCP - General 09/21/23 documented as of this encounter
[2025-06-15 10:08] VITALS: BMI 75.9
--- NOTE | 2025-06-15 10:08 | XR_ITS ---
FINAL REPORT CLINICAL HISTORY: picc placement COMPARISON: 04/12/2025 FINDINGS: SINGLE VIEW CHEST The heart is normal in size. The mediastinum is unremarkable. There is atelectasis at the right base. The left lung is clear. There is no pneumothorax. IMPRESSION: Right base atelectasis. Reviewed, Interpreted and Dictated by Immanuel Verdin MD Transcribed by Niyah Sandra Authenticated and . [facility]
[2025-06-15 12:04] VITALS: BP 107/64; PULSE 84; RESP 14; TEMP 36.6; O2SAT 95
[2025-06-15 13:25] VITALS: BP 114/66; PULSE 89; RESP 16; O2SAT 95
[2025-06-15 13:47] LABS: Chloride 79 mmol/L (98-107); Sodium 130 mmol/L (136-145)
[2025-06-15 13:50] LABS: Blood Urea Nitrogen 15 mg/dl (9-20); Creatinine,Serum 0.80 mg/dl (0.66-1.25); Estimated Glomerular Filt Rate 104 ml/min (>60); GFR (African American) 125 ML/MIN (>60)
[2025-06-15 13:51] LABS: Anion Gap 15.0 mEq/L (5-15); Calcium 8.9 mg/dl (8.4-10.2); Carbon Dioxide 39 mmol/L (22.0-30.0); Glucose 170 mg/dl (74-100); Potassium 3.0 mmoL/L (3.5-5.1)
== END 2025-06-15 23:59 | disposition home or self-care (01) ==
PROVIDERS: PCP Nurse Practitioner Family; Visit Provider Nurse Practitioner Family
DX: N39.0 Urinary tract infection, site not specified (principal); B96.5 Pseudomonas (aeruginosa) (mallei) (pseudomallei) as the cause of diseases classified elsewhere
CPT/HCPCS: 36569; 71045; 80048; 96365; C1751; J3260

== ENCOUNTER 2025-06-19 11:25 | Outpatient (CLI) | payer MEDICARE, BC, SELFPAY ==
[2025-06-19 12:30] LABS: Blood Urea Nitrogen 16 mg/dl (9-20); Calcium 9.0 mg/dl (8.4-10.2); Creatinine,Serum 0.90 mg/dl (0.66-1.25); Estimated Glomerular Filt Rate 90 ml/min (>60); GFR (African American) 109 ML/MIN (>60); Glucose 232 mg/dl (74-100); Sodium 131 mmol/L (136-145)
[2025-06-19 12:40] LABS: Chloride 72 mmol/L (98-107); Potassium 2.6 mmoL/L (3.5-5.1)
[2025-06-19 12:50] LABS: Tobramycin,Peak 13.5 ug/ml (5.0-12.0)
[2025-06-19 12:51] LABS: Tobramycin,Trough 13.5 ug/ml (0-2.0)
[2025-06-19 13:22] LABS: Anion Gap 19.6 mEq/L (5-15); Carbon Dioxide 42 mmol/L (22.0-30.0)
== END 2025-06-19 23:59 | disposition home or self-care (01) ==
PROVIDERS: PCP Nurse Practitioner Family; Visit Provider Nurse Practitioner Family
DX: E87.5 Hyperkalemia (principal); N39.0 Urinary tract infection, site not specified
CPT/HCPCS: 80048; 80200

== ENCOUNTER 2025-06-19 13:52 | Emergency (ER) | payer MEDICARE, BC, SELFPAY ==
[2025-06-19] VITALS (25 sets, daily range): BP systolic 101–128; BP diastolic 53–83; PULSE 70–90; RESP 12–24; TEMP 36.8; O2SAT 73–97; BMI 31.7
--- NOTE | 2025-06-19 14:27 | ED_ITS ---
<Statement entered by Corey Rueda MD - 06/20/25 15:45> I independently evaluated this patient. Suspect contraction alkalosis due to overdiuresis and dehydration based on his mixed acid-base status. His creatinine is normal. He has some mild hypokalemia and hypomagnesemia that were repleted and fluid resuscitate. Initially consulted for admission, however hospitalist felt that we could attempt rehydration here and discharge. patient is tolerating oral intake, has good follow-up with PCP. I was consulted by the POOJA, and we discussed the complexity of problems being addressed. I approved the treatment and management plan for this patient's care in the emergency department, thus performing a substantial portion of the medical decision making. Corey Rueda MD Discharge Plan Disposition Chief Complaint: Weakness Prescriptions Prescriptions: No Action (DME) insulin syringe-needle U-100 [BD Insulin Syringe Ultra-Fine] 1 mL 30 gauge x 1/2 syringe See Rx Instructions .ROUTE .MEDSUPPLY Qty: 10 Rx Instructions: As directed (DME) Dexcom G7 Sensor Device See Rx Instructions miscellaneous .MEDSUPPLY Qty: 1 0RF Rx Instructions: As directed (DME) Dexcom G7 Sensor Device See Rx Instructions .MEDSUPPLY Qty: 3 3RF Rx Instructions: Use 1 sensor for every 10 days (DME) Dexcom G7 Feeder Operator Misc See Rx Instructions miscellaneous .MEDSUPPLY Qty: 1 0RF Rx Instructions: As directed gabapentin 600 mg tablet 600 mg PO TID Qty: 90 2RF lorazepam 1 mg tablet 1 mg PO DAILYP PRN (Reason: anxiety) Qty: 15 2RF (DME) pen needle, diabetic [Comfort EZ Pen [place]] 32 gauge x 5/32 needle See Rx Instructions .Route Qty: 100 0RF Rx Instructions: As directed diltiazem HCl 120 mg capsule,extended release 24hr 120 mg PO DAILY Qty: 90 3RF spironolactone [Aldactone] 100 mg tablet 100 mg PO DAILY Qty: 30 2RF tamsulosin [Flomax] 0.4 mg capsule 0.4 mg PO DAILY 90 Days Qty: 90 0RF nystatin-triamcinolone 100,000-0.1 unit/g-% cream 1 applic topical BID 30 Days Qty: 30 0RF atorvastatin 40 mg tablet 40 mg PO HS Qty: 90 1RF metformin 1,000 mg tablet 1,000 mg PO BID Qty: 60 5RF bumetanide 2 mg tablet 4 mg PO TID 30 Days Qty: 180 0RF hydrocodone-acetaminophen 10-325 mg tablet 1 tab PO TIDP PRN (Reason: Moderate Pain (Scale Score 5-6)) Qty: 90 0RF fluconazole 150 mg tablet 150 mg PO DAILY 3 Days Qty: 3 0RF Xarelto 20 mg tablet 20 mg PO QPMWITHMEAL Qty: 30 5RF metolazone 2.5 mg tablet 2.5 mg PO DIRECTED Qty: 30 2RF Rx Instructions: Take one tablet on only potassium chloride [K-Tab] 20 mEq tablet extended release 20 meq PO DAILY Qty: 30 2RF Rx Instructions: 1 tablet 3 times daily x 2 days then 1 tablet daily venlafaxine 150 mg capsule,extended release 24hr 150 mg PO DAILY bisoprolol fumarate 5 mg tablet 5 mg PO BID Patient Comments: TAKE 1 TABLET BY MOUTH TWICE A DAY FOR BLOOD PRESSURE trazodone 100 mg tablet 100 mg PO HS Patient Comments: TAKE 1 TABLET AT BEDTIME Vraylar 3 mg capsule 3 mg PO DAILY Humulin R U-500 (Conc) Kwikpen 500 unit/mL (3 mL) insulin pen 175 unit SQ HS Patient Comments: INJECT 225 UNITS TWICE DAILY BEFORE BREAKFAST AND BEFORE DINNER omeprazole 40 mg capsule,delayed release(DR/EC) 40 mg PO DAILY Humulin R U-500 (Conc) Kwikpen 500 unit/mL (3 mL) insulin pen 200 unit SQ AM ondansetron 8 mg tablet,disintegrating 8 mg PO BIDP PRN (Reason: Nausea And Vomiting) doxycycline hyclate 100 mg tablet 100 mg PO BID Qty: 14 0RF levofloxacin 750 mg tablet 750 mg PO DAILY Qty: 7 0RF Referrals Follow up/Referrals: Malcolm Hayward APRN [Primary Care Provider, Family Practice] - See instructions Daniel Martinez MD [Staff Physician, Cardiology] - See instructions Activity Restrictions/Add. Instructions Additional Instructions/Restrictions: Please follow up with Michelle in the morning at 9 am. Clinical Impressions Clinical Impression: Generalized weakness, Acute hypokalemia, Dehydration, Hypomagnesemia, Acute hyponatremia Instructions Patient Instructions: Magnesium, Potassium, Sodium, DI for Dehydration in Adults, DI for Hypokalemia, DI for Hyponatremia Print Language Print Language: [place] Discharge ED Provider: Corey Rueda General Adult HPI General Chief complaint: Weakness Stated complaint: low levels of potassium, chloride Time Seen by Provider: 06/19/25 14:13 Mode of Arrival: Wheelchair Source of Information: Patient and Spouse Description of Symptoms (Recalled from ER Triage Doc. by RN): Pt presents for evaluation of low potassium and chloride. K+ 2.6. History of Present Illness HPI narrative: 49 presents to the ED for complaint of feeling weak. Home health came today and his potassium 2.6. Patient's chloride was also low. Patient tells me he just feels a little weak today and fuzzy. Related Data Home Medications ?Medication ?Instructions ?Recorded ?Confirmed insulin syringe-needle U-100 1 mL #10 ea 02/18/2403/06 30 gauge x 1/2 (BD Insulin Syringe Ultra-Fine) bisoprolol fumarate 5 mg tablet 5 mg PO BID 12/08/24 1 07/20/24 trazodone 100 mg tablet 100 mg PO HS 12/08/24 venlafaxine 150 mg 150 mg PO DAILY 12/08/2403/06 capsule,extended release 24 hr cariprazine 3 mg capsule (Vraylar) 3 mg PO DAILY 02/2305/20/25 insulin regular hum U-500 conc 500 175 unit SQ HS 03/0605/20/25 unit/mL(3 mL) subcut pen (Humulin R U-500 (Conc) Insulin Kwikpen) insulin regular hum U-500 conc 500 200 unit SQ AM 03/0605/20/25 unit/mL(3 mL) subcut pen (Humulin R U-500 (Conc) Insulin Kwikpen) omeprazole 40 mg capsule,delayed 40 mg PO DAILY 05/20/25 release ondansetron 8 mg disintegrating 8 mg PO BIDP PRN Nause a And 05/21/25 05/21/25 tablet Vomiting Previous Rx's ?Medication ?Instructions ?Recorded pen needle, diabetic 32 gauge x #100 ea 09/16/2332 (Comfort EZ Pen [place]) diltiazem HCl 120 mg 120 mg PO DAILY #90 caps 07/05 capsule,extended release 24 hr nystatin-triamcinolone 100,000 1 applic topical BID 30 days #30 02/24/25 unit/g-0.1 % topical cream grams tamsulosin 0.4 mg capsule (Flomax) 0.4 mg PO DAILY 90 days #90 caps 02/24/25 spironolactone 100 mg tablet 100 mg PO DAILY #30 tabs 02/27/25 (Aldactone) atorvastatin 40 mg tablet 40 mg PO HS #90 tabs 5 blood-glucose sensor (Dexcom G7 #1 ea 03/21/25 Sensor device) blood-glucose sensor (Dexcom G7 #3 ea 03/21/25 Sensor device) blood-glucose,phlebotomy supervisor,cont #1 ea 03/21/25 (Dexcom G7 Feeder Operator) gabapentin 600 mg tablet 600 mg PO TID #90 tabs 03/28 lorazepam 1 mg tablet 1 mg PO DAILYP PRN anxiety # 15 tabs 03/28/25 bumetanide 2 mg tablet 4 mg (2 x 2 mg) PO TID 30 da ys 04/24/25 #180 tabs metformin 1,000 mg tablet 1,000 mg PO BID #60 tabs doxycycline hyclate 100 mg tablet 100 mg PO BID #14 ta bs 05/24/25 levofloxacin 750 mg tablet 750 mg PO DAILY #7 tabs 07/06 hydrocodone 10 mg-acetaminophen 1 tab PO TIDP PRN Mode rate Pain 05/25/25 325 mg tablet (Scale Score 5-6) #90 tabs fluconazole 150 mg tablet 150 mg PO DAILY 3 days #3 ta bs 05/29/25 rivaroxaban 20 mg tablet (Xarelto) 20 mg PO QPMWITHMEA L #30 tabs 05/29/25 metolazone 2.5 mg tablet 2.5 mg PO DIRECTED #30 ta bs 06/01/25 potassium chloride 20 mEq 20 meq PO DAILY #30 tabs 11/04 tablet,extended release (K-Tab) Allergies Allergy/AdvReac Type Severity Reaction Status Date / Time vancomycin AdvReac Severe Redness of Verified 04/06/25 10:28 Skin clindamycin AdvReac Mild Nausea Verified 04/06/25 10:28 doxycycline AdvReac Mild Upset Verified 04/06/25 10:28 stomach, heartbur PFSH PFS Disclaimer: The information contained in this section may have been updated after the patient was seen, as this information can be updated by other users. Medical History (Updated 06/19/25 @ 21:15 by Nia Hurt (ED), [employer]) Hypokalemia Hyperkalemia UTI (urinary tract infection) Dysuria Encounter for assessment of wound Recurrent UTI UTI due to extended-spectrum beta lactamase (ESBL) producing Escherichia coli Urinary urgency Blister of left lower leg Diabetic foot ulcer UTI symptoms Cellulitis of leg, right Sepsis without septic shock Boil of lower extremity Edema of both feet Acquired pes planus of left foot Calcaneal spur of both feet History of recent fall Palpitations Hypomagnesemia Cardiac volume overload Urinary tract infection Body mass index [BMI] 70 or greater, adult Blood in urine Encounter for Barber catheter removal Gastroenteritis Chest wall pain Encounter for wound care Total avulsion of nail plate Alcohol abuse Tobacco use Smoker unmotivated to quit Afib 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 Tachycardia Bilateral knee pain DDD (degenerative disc disease), lumbar Depression Morbid obesity with body mass index of 70 and over in adult CHF (congestive heart failure) COPD (chronic obstructive pulmonary disease) Diabetes Dyspnea BMI 60.0-69.9, adult Obesity Anxiety disorder Hypertension Diabetes type 2, uncontrolled Surgical History S/P gastric sleeve procedure History of gastric bypass Family History Father Cancer Other No significant family history Social History Smoking Status: Never smoker alcohol intake: former year quit: 2021 counseling given: Yes counseling provided: provider counseling substance use type: denies use current occupational status: unemployed and disabled Travel in the last 8 weeks?: None household members: spouse and children housing: house marital status: number of children: 1 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 current occupational exposures/hazards: No pets and animals: Yes pets and animals: cat(s) diet: other caffeine: Yes physical activity: none Have you lived/traveled outside [place] in past 30 days?: No Contact w/someone who lives/traveled outside US past 30 days?: No Exposure to someone with infectious disease in past 14 days?: No Do you have a fever (greater than 100.4 F or 38 C)?: No Have you tested positive for COVID-19?: No Exposed to someone with COVID-19 in past 14 days?: No Do you have a sore throat?: No Do you have a cough?: No Do you have any weakness?: No Do you have any diarrhea?: No Are you experiencing any unusual bleeding?: No Do you have any muscle aches/pain?: No Do you have any abdominal pain?: No Are you experiencing loss of taste or smell?: No Other Medical History Have you received the Flu Vaccine for this season: No Have you received the Pneumonia Vaccine: No ROS Obtained: Yes Systems reviewed as appropriate & no additional complaints except as documented Physical Exam General General appearance: alert and lethargic Respiratory Respiratory exam: Present normal lung sounds bilaterally Cardiovascular Cardiovascular exam: Present regular rate and normal heart sounds Neurological Exam Neurological exam: Present alert and oriented X3 Medical Decision Making Medical Records Screening: Per USPSTF and CDC recommendations, given the prevalence of disease in our region, it is our hospital?s policy to screen for HIV and viral Hepatitis for all patients aged 18 and over and those with ongoing risk factors. Sy Inquiry Pt receiving controlled substance: No Sy was queried for this patient: No Vital Signs: 06/19/25 14:08 06/19/25 14:30 06/19/25 15:00 Temperature 98.3 F Temperature Source Oral Pulse Rate 90 89 Pulse Rate [Right] 89 Respiratory Rate 18 Blood Pressure 127/76 110/66 Blood Pressure [Right Arm] 111/55 L Blood Pressure Mean Blood Pressure Mean [Right Arm] 73 Blood Pressure Source [Right Arm] Automatic Cuff Blood Pressure Position [Right Arm] Sitting 02 Sat by Pulse Oximetry 95 95 95 Oxygen Delivery Method Room Air Room Air Room Air 06/19/25 15:30 06/19/25 16:00 06/19/25 16:30 Temperature Temperature Source Pulse Rate 80 82 Pulse Rate [Right] Respiratory Rate 16 24 Blood Pressure 119/71 115/66 101/53 L Blood Pressure [Right Arm] Blood Pressure Mean Blood Pressure Mean [Right Arm] Blood Pressure Source [Right Arm] Blood Pressure Position [Right Arm] 02 Sat by Pulse Oximetry 96 95 73 L Oxygen Delivery Method Room Air Room Air 06/19/25 17:31 06/19/25 19:00 06/19/25 19:12 Temperature Temperature Source Pulse Rate 83 85 Pulse Rate [Right] Respiratory Rate 13 22 Blood Pressure 128/83 Blood Pressure [Right Arm] Blood Pressure Mean Blood Pressure Mean [Right Arm] Blood Pressure Source [Right Arm] Blood Pressure Position [Right Arm] 02 Sat by Pulse Oximetry 95 94 L Oxygen Delivery Method Room Air 06/19/25 19:12 06/19/25 19:15 Temperature Temperature Source Pulse Rate 84 Pulse Rate [Right] Respiratory Rate 18 Blood Pressure 118/65 Blood Pressure [Right Arm] Blood Pressure Mean 77 Blood Pressure Mean [Right Arm] Blood Pressure Source [Right Arm] Blood Pressure Position [Right Arm] 02 Sat by Pulse Oximetry 94 L Oxygen Delivery Method Room Air Lab Data Lab Results 06/19/25 14:34: WBC 12.2 H, RBC 4.67, Hgb 10.4 L, Hct 34.4 L, MCV 73.7 L, MCH 22.3 L, MCHC 30.2 L, RDW 18.3 H, Plt Count 260, MPV 9.1, Neut % (Auto) 83.1 H, L ymph % (Auto) 8.8 L, [place] % (Auto) 6.1, Eos % (Auto) 1.0, Baso % (Auto) 0.3, N eut # (Auto) 10.1 H, Lymph # (Auto) 1.1, [place] # (Auto) 0.8, Eos # (Auto) 0.1, Baso # (Auto) 0.0, ESR 20 H, Sodium 130 L 06/19/25 14:34: Sodium Cancelled, Potassium 2.8 L* 06/19/25 14:34: Potassium Cancelled, Chloride 73 L 06/19/25 14:34: Chloride Cancelled, Carbon Dioxide 38 H 06/19/25 14:34: Carbon Dioxide Cancelled, Anion Gap 21.8 H 06/19/25 14:34: Anion Gap Cancelled, BUN 18 06/19/25 14:34: BUN Cancelled, Creatinine 1.00 06/19/25 14:34: Creatinine Cancelled, Estimated Creat Clear 137 06/19/25 14:34: Estimated Creat Clear Cancelled, Estimated GFR 80 06/19/25 14:34: Estimated GFR Cancelled, Est GFR ( Amer) 97 06/19/25 14:34: Est GFR ( Amer) Cancelled, Glucose 211 H 06/19/25 14:34: Glucose Cancelled, Calcium 9.4 06/19/25 14:34: Calcium Cancelled, Magnesium 1.4 L, Total Bilirubin 0.9 06/19/25 14:34: Total Bilirubin Cancelled, AST 29 06/19/25 14:34: AST Cancelled, ALT 29 06/19/25 14:34: ALT Cancelled, Alkaline Phosphatase 89 06/19/25 14:34: Alkaline Phosphatase Cancelled, C-Reactive Protein 51.1 H, N T-Pro-B Natriuret Pep 150 H, Total Protein 8.2 06/19/25 14:34: Total Protein Cancelled, Albumin 4.2 06/19/25 14:34: Albumin Cancelled, Globulin 4.0 H 06/19/25 14:34: Globulin Cancelled, Albumin/Globulin Ratio 1.1 06/19/25 14:34: Albumin/Globulin Ratio Cancelled, Lipase 110, Salicylates 1.4 L, Plasma/Serum Alcohol < 10 06/19/25 14:40: VBG pH 7.55 H, VBG pCO2 47.0, VBG pO2 56.2 H, VBG HCO3 40.1 H, V BG Total CO2 41.6 H, VBG O2 Saturation 88.2 H, VBG Base Excess 17.7 H, VBG Lactic Acid 7.3 H 06/19/25 17:00: Urine Color Yellow, Urine Appearance Clear, Urine pH 6.0, Ur Specific [place] 1.020, Urine Protein 1+ A, Urine Glucose (UA) Negative, Urine Ketones Negative, Urine Blood 2+ A, Urine Nitrate Positive A, Urine Bilirubin Negative, Urine Urobilinogen 0.2, Ur Leukocyte Esterase 2+ A, Urine RBC 5-10, Urine WBC 5-10, Ur Squamous Epith Cells None, Urine Bacteria 3+ 06/19/25 21:00: Sodium 129 L, Potassium 3.0 L, Chloride 79 L, Carbon Dioxide 38 H, Anion Gap 15.0, BUN 18, Creatinine 1.00, Estimated Creat Clear 137, Estimated GFR 80, Est GFR ( Amer) 97, Glucose 286 H D, Lactate 2.8 H, Calcium 8.5, Total Bilirubin 0.8, AST 23, ALT 19 D, Alkaline Phosphatase 89, Total Protein 7.7, Albumin 4.0, Globulin 3.7 H, Albumin/Globulin Ratio 1.1 06/19/25 14:34 06/19/25 21:00 Orders (Tests/Meds): ED MEDICATIONS Discontinued Medications Generic Name Dose Route Start Last Admin Trade Name Freq PRN Reason Stop Dose Admin Hydrocodone Bitart/Acetaminophen 1 tab 06/19/25 19:54 06/19/25 20:14 Apap/Hydrocodone 325mg/7.5mg Tab PO 06/19/25 19:55 1 tab ONCE ONE Administration Sodium Chloride 1,000 mls @ 999 mls/hr 06/19/25 15:13 06/19/25 16:23 Sod Chlor 0.9% 1000ml Bag IV 06/19/25 16:13 Not Given .Q1H1M ONE Sodium Chloride 3,180 mls @ 1,590 mls/hr 06/19/25 15:15 06/19/25 20:18 Sod Chlor 0.9% 1000ml Bag 30 ml/kg infuse over 2 hr (3180 ml) 06/19/25 17:14 Infused IV Infusion .Q2H ONE Protocol Magnesium Sulfate 2 gm in 50 mls @ 50 mls/hr 06/19/25 15:17 06/19/25 18:38 Magnesium Sulfate 2gm/50ml Premix IV 06/19/25 16:16 Infused ONCE ONE Infusion Potassium Chloride/Water 100 mls @ 50 mls/hr 06/19/25 16:15 06/19/25 20:01 Potassium Chloride 20meq/100ml Ivpb IV 06/19/25 18:14 Infused ONCE ONE Infusion Potassium Chloride/Water 100 mls @ 50 mls/hr 06/19/25 18:12 06/19/25 19:52 Potassium Chloride 20meq/100ml Ivpb IV 06/19/25 20:11 50 mls/hr ONCE ONE Administration Potassium Chloride 60 meq 06/19/25 14:54 06/19/25 15:18 Potassium Chloride 20meq Tab PO 06/19/25 14:55 60 meq ONCE ONE Administration ORDERS Category Date Time Status Chest XR -- portable [XR chest portable] Stat Exams 06/19/25 14:31 Completed BNP [NT Pro Brain Natriuretic Pep.] Stat Lab 06/19/25 14:34 Completed C-Reactive Protein Stat Lab 06/19/25 14:34 Completed CBC w/Auto Diff [Complete Blood Count Auto Diff] Stat Lab 06/19/25 14:34 Completed Comprehensive Metabolic Panel Stat Lab 06/19/25 14:34 Completed Comprehensive Metabolic Panel Stat Lab 06/19/25 21:00 Completed Erythrocyte Sedimentation Rate Stat Lab 06/19/25 14:34 Completed Ethyl Alcohol Stat Lab 06/19/25 14:34 Completed Lactic Acid Follow Up (RFLX 1) Stat Lab 06/19/25 21:00 Completed Lipase Stat Lab 06/19/25 14:34 Completed Magnesium Stat Lab 06/19/25 14:34 Completed Salicylate Stat Lab 06/19/25 14:34 Completed Urinalysis and Microscopic Stat Lab 06/19/25 17:00 Completed Blood Culture Stat Micro 06/19/25 16:55 Received Urine Culture Stat Micro 06/19/25 17:00 Received Venous Blood Gas Stat RT 06/19/25 14:40 Completed Medical Decision Narrative: patient is a 49 year old male presenting to the emergency department for evaluation of weakness, nausea. Patient is hemodynamically stable and nontoxic- appearing upon arrival, afebrile. Differential diagnosis includesaltered mental status, sepsis, electrolyte derangement, among others. Workup will be conducted with hematologic labs, specific imaging Initial inventions include crystalloid bolus, analgesics. Initial workup reviewed by me hematologic labs are remarkable for wbc 12.2, sodium 130, K 2.8, chloride 73, carbon dioxide 38, mag 1.4, normal liver and kidney function. . I did consult the hospital team about admission for dehydration and electrolyte replacement. He said he was not convinced that he needed to come in just for these electrolytes if hes tolerating po intake, his kidney function is stable. Katie said to decrease his bumex to BID and follow with cards tomorrow. Dr Rueda and I discussed this and Dr Rueda is okay with repeating the lactate and replacing the electrolytes here in the er. As long as his lactate is trending down and his urine is okay we can send him home with close follow up. Patient is being placed in observation status at 1652 for dehydration. We are giving IV fluids, mag, IV potassium and po potassium. Discussed with hospital medicine and they do not see that he is severe dehydration status so we will rehydrate here in the ER, replace electrolytes and recheck labs and lactate. We are trying to prevent an admission. Reevaluation will include repeat labs Results Patients repeat was lactic 2.8 and k 3.0 Disposition will be follow up with [employer] [employer] in the morning at 9 am Discharge Note : I had a face to face visit with the patient that was less than 30 minutes. Patient safe for discharge Critical Care Critical Care Time Critical Care Time: No
--- NOTE | 2025-06-19 14:31 | XR_ITS ---
PROCEDURE INFORMATION: Exam: XR Chest Exam date and time: 06/19/2025 2:35 PM Age: 49 years old Clinical indication: Other: Weakness TECHNIQUE: Imaging protocol: Radiologic exam of the chest. Views: 1 view. COMPARISON: CR XR CHEST PORTABLE 06/15/2025 10:02 AM FINDINGS: Airway: Airways are patent. Lungs: Low lung volumes causes crowding of the bronchovascular structures. No consolidations. Pleural spaces: There is blunting of the left costophrenic angle. Right costophrenic angle is clear. There is no evidence of pneumothorax. Heart/Mediastinum: Cardiomediastinal silhouette is magnified due to technique. Bones/joints: No acute skeletal abnormality or aggressive osseous lesion. IMPRESSION: Trace left pleural effusion versus atelectasis/artifact from superimposition of structures.
[2025-06-19 14:42] LABS: Hematocrit 34.4 % (42.0-52.0); Hemoglobin 10.4 g/dL (14.1-18.0); Immature Granulocytes % 0.7 %; Mean Corpuscular HGB Conc 30.2 g/dL (31.8-35.4); Mean Corpuscular Hemoglobin 22.3 pg (27.0-31.2); Mean Corpuscular Volume 73.7 fl (80-94); Nucleated Red Blood Cells % 0 %; Platelet Count 260 K/mm3 (142-424); Red Blood Count 4.67 M/mm3 (4.60-6.20); Red Cell Distribution Width-SD 47.2 fL; White Blood Count 12.2 K/mm3 (4.8-10.8)
[2025-06-19 14:43] LABS: VBG HCO3 40.1 mmol/L (23-30); VBG PCO2 47.0 mmol/L (35-51); VBG PO2 56.2 mmol/L (28-40)
[2025-06-19 14:49] LABS: Lactate Venous 7.3 mmol/L (0.4-2.0); VBG PH 7.55 mmol/L (7.31-7.41)
--- NOTE | 2025-06-19 14:50 | PC.NURSE ---
Maria Elena garcia respiratory call criticals on patient. pH7.55 BiCarb 40, Lactic 7.3, K 2.86, Na 126.2, Chloride 79, and Ca 3.9
[2025-06-19 14:58] LABS: Alanine Aminotransferase 29 U/L (12-78); Albumin Level 4.2 g/dl (3.5-5.0); Albumin/Globulin Ratio 1.1 (1.1-1.8); Alkaline Phosphatase 89 U/L (38-126); Aspartate Amino Transferase 29 U/L (17-59); Bilirubin,Total 0.9 mg/dl (0.2-1.3); Blood Urea Nitrogen 18 mg/dl (9-20); Calcium 9.4 mg/dl (8.4-10.2); Creatinine Clearance Estimated 137 mL/min (50-200); Creatinine,Serum 1.00 mg/dl (0.66-1.25); Estimated Glomerular Filt Rate 80 ml/min (>60); GFR (African American) 97 ML/MIN (>60); Globulin 4.0 g/dL (1.3-3.2); Glucose 211 mg/dl (74-100); Sodium 130 mmol/L (136-145); Total Protein,Serum 8.2 g/dl (6.3-8.2)
[2025-06-19 15:06] LABS: NT Pro Brain Natriuretic Pep. 150 pg/mL (0-125)
[2025-06-19 15:08] LABS: Anion Gap 21.8 mEq/L (5-15); Carbon Dioxide 38 mmol/L (22.0-30.0)
[2025-06-19 15:09] LABS: Chloride 73 mmol/L (98-107); Potassium 2.8 mmoL/L (3.5-5.1)
--- NOTE | 2025-06-19 15:09 | PC.NURSE ---
CRITICAL K+ 2.8 AND CHLORIDE 73. PT NAME AND R/V. ZOIE KATZ NOTIFIED
[2025-06-19 15:13] LABS: Lipase 110 U/L (23-300); Magnesium 1.4 mg/dl (1.6-2.3)
[2025-06-19 15:18] LABS: Salicylate 1.4 mg/dL (2.0-20.0)
[2025-06-19] MEDS: POTASSIUM CHLORIDE 20MEQ TAB 60 MEQ PO (15:18)
[2025-06-19 15:33] LABS: C-Reactive Protein 51.1 mg/L (0-4)
--- NOTE | 2025-06-19 16:00 | ECG_ITS ---
APPROVED REPORT Exam: Resting ECG HR:79 bpm ECG Measurements Heart Rate 79 AXES FL 175 P 43 QRSd 167 QRS -42 QT 463 T 53 QTc 498 Conclusion SINUS RHYTHM LEFT AXIS DEVIATION [QRS AXIS < -30] RIGHT BUNDLE BRANCH BLOCK [120+ ms QRS DURATION, UPRIGHT V1, 40+ ms S IN I/aVL/V4/V5/V6] No STEMI Electronically signed by : JAYDON MOTA, 06/22/2025 03:09:17
[2025-06-19] MEDS: MAGNESIUM SULFATE IN WATER 2 GM/50 ML PIGGYBACK IV (16:51)
[2025-06-19 18:47] LABS: Reflex Lactic Add Lactic Reflex
[2025-06-19 19:27] LABS: Microscopic, Urine URINE MICROSCOPIC (MICROSCOPIC)
[2025-06-19 19:36] LABS: Bilirubin,Urine Negative (Negative); Color,Urine YELLOW (Yellow); Glucose,Urine (UA) Negative (Negative); Ketones,Urine Negative (Negative); Leukocyte Esterase,Urine 2+ (Negative); PH,Urine 6.0 (5.0-8.5); Protein,Urine 1+ (Negative); Specific Gravity, Urine 1.020 (1.005-1.030); Urobilinogen,Urine 0.2 EU/dl (0.2)
[2025-06-19] MEDS: APAP/HYDROCODONE 325MG/7.5MG TAB 1 TAB PO (20:14)
[2025-06-19 20:46] LABS: Bacteria,Urine 3+ /lpf
[2025-06-19 21:32] LABS: Alanine Aminotransferase 19 U/L (12-78); Albumin Level 4.0 g/dl (3.5-5.0); Albumin/Globulin Ratio 1.1 (1.1-1.8); Alkaline Phosphatase 89 U/L (38-126); Anion Gap 15.0 mEq/L (5-15); Aspartate Amino Transferase 23 U/L (17-59); Bilirubin,Total 0.8 mg/dl (0.2-1.3); Blood Urea Nitrogen 18 mg/dl (9-20); Calcium 8.5 mg/dl (8.4-10.2); Carbon Dioxide 38 mmol/L (22.0-30.0); Chloride 79 mmol/L (98-107); Creatinine Clearance Estimated 137 mL/min (50-200); Creatinine,Serum 1.00 mg/dl (0.66-1.25); Estimated Glomerular Filt Rate 80 ml/min (>60); GFR (African American) 97 ML/MIN (>60); Globulin 3.7 g/dL (1.3-3.2); Glucose 286 mg/dl (74-100); Sodium 129 mmol/L (136-145); Total Protein,Serum 7.7 g/dl (6.3-8.2)
[2025-06-19 21:35] LABS: Lactic Acid Follow Up (RFLX 1) 2.8 mmol/L (0.7-2.1); Potassium 3.0 mmoL/L (3.5-5.1)
--- NOTE | 2025-06-19 21:36 | PC.NURSE ---
critical lab value called from lab @2135, notified.
[2025-06-19 23:05] LABS: Reflex Lactic (2 hrs) Add Lactic Reflex
== END 2025-06-19 22:23 | disposition home or self-care (01) ==
PROVIDERS: Nurse Practitioner; Emergency Provider Emergency Medicine; PCP Nurse Practitioner Family
DX: E87.6 Hypokalemia (principal); E86.0 Dehydration; E83.42 Hypomagnesemia; E87.1 Hypo-osmolality and hyponatremia; R53.1 Weakness; I11.0 Hypertensive heart disease with heart failure; I50.33 Acute on chronic diastolic (congestive) heart failure; Z87.891 Personal history of nicotine dependence
CPT/HCPCS: 51702; 71045; 80053; 80320; 80329; 81001; 82803; 83605; 83690; 83735; 83880; 85025; 85651; 86140; 87040; 87086; 93005; 96365; 96366; 96367; 99285; J3475; J3480; J7030

== ENCOUNTER 2025-06-28 19:20 | Outpatient (CLI) | payer MEDICARE, BC, SELFPAY ==
--- OUTSIDE RECORDS SUMMARY | 2025-04-27 20:29 | XMS_ITS | Encounter Summary ---
Author Organization [facility] Address [address] [place] [address] Care Team Providers Care Therapy Aide Name Role Phone Malcolm Hayward APRN Primary Care Provider [phone] Reason for Referral * Consultation (Routine) - Authorized Specialty Diagnoses / Procedures Referred By Contac t Referred To Contact Endocrinology Diagnoses Uncontrolled type 2 diabetes mellitus with hyperglycemia, with long-term current use of insulin Type 2 diabetes mellitus with diabetic peripheral angiopathy without gangrene, with long-term current use of insulin Martina Foote PA [address] [place] [address] Phone: tel: fax: Referral ID Status Reason Start Date Expiration Date Visits Requested Visits Authorized [id number] Authorized Specialty Services Required 11/04/2026 1 1 * Consultation (Routine) - Closed Specialty Diagnoses / Procedures Referred By Contact Referred To Contact Vascular Surgery / [facility] Diagnoses Diabetic foot ulcer with osteomyelitis Diane Guzman MD [address] [place] [address] Phone: tel:[phone] fax:[phone] [facility] [address] 5[address] Floor [address] [place] [address] Phone: tel: fax: Referral ID Status Reason Start Date Expiration Date V isits Requested Visits Authorized [id number] Closed Specialty Services Required 05/03/2025 11/02/2026 1 1 Reason for Visit * Reason Comments Wound Check * Auth/Cert (Routine) Specialty Diagnoses / Procedures Referred By Anish t Referred To Contact Diagnoses Diabetic foot ulcer with osteomyelitis Greg Lee MD [address] [place] [address] Phone: tel: fax: [facility] Emergency Department [address] [place] [address] Phone: tel: Referral ID Status Reason Start Date Expiration Date Visits Re quested Visits Authorized [id number] 1 1 Encounter Details Date Type Department Care Team (Latest Contact Info) Description 04/27/2025 9:29 PM EDT - 05/18/2025 11:48 AM EST Hospital Encounter [facility] Inpatient [address] [place] [address] Jessa Law MD [address] [place] [address] Man Garcia, DO [address] [place] [address] Greg Lee MD [address] [place] [address] Marjorie Myers MD [address] [place] [address] Diane Guzman MD [address] [place] [address] Selin Lee MD [address] [place] [address] Wily Goyal, DO [address] [place] [address] Other chronic osteomyelitis of right foot (CMS/HCC) (Primary Dx); Diabetic foot ulcer with osteomyelitis; Uncontrolled type 2 diabetes mellitus with hyperglycemia, with long-term current use of insulin; Type 2 diabetes mellitus with diabetic peripheral angiopathy without gangrene, with long-term current use of insulin Discharge Disposition: Nursing Home Facility Social History Tobacco Use Types Packs/Day [...] any time in the past 12 m [facility], were you homeless or living in a fdc (including now)? No 04/28/2025 [facility] Utilities Answer Date Recorded In the past 12 months has [employer] electric, gas, oil, or water company threatened [...] 5 tablet 05/17/2025 Insulin Pen Needle ([place]) 31G X 5 MM mis USE TO [...] capsule by mouth daily. 05/10/2018 HYDROcodone-acetami nophen ([place]) 10-325 MG tablet Take 1 tablet by [...] provided Taken 05/17/2025 2228 by Ivan Slaughter RNisolation washer Interventions: medication (see MAR) Goal: Optimal Wound [...] Ongoing, Progressing Intervention: Promote Activity and Functional [place] Flowsheets Taken 05/18/2025 1131 by Kylee Gonzalez [...] DO PCP name and Address: Malcolm Hayward, CIDER PRESS OPERATOR [address] [place] [address] / [place] [id number] Brief History of Present Illness 49 M [...] extremity. He was accepted for discharge to [facility] rehab facility. Urinary Retention and Recurrent [...] He was medically stable for discharge to [facility] rehab facility, with recommendations for close [...] HYDROcodone-acetaminophen 10-325 MG tablet Commonly known as: [place] Take 1 tablet by mouth every 6 [...] the skin 1 time per week. [place] 31G X 5 MM misc USE TO [...] Your Medications These medications were sent to [facility] [place] [address] [place] [address] gabapentin 600 MG tablet HYDROcodone-acetaminophen 10-325 MG tablet insulin regular 100 UNIT/ML injection vial insulin regular 500 UNIT/ML CONCENTRATED injection vial Information about where to get these medications is not yet available Ask your nurse or doctor about these medications ferrous sulfate 324 MG tablet delayed-release Discharge Diagnosis Medical Problems Active and Resolved Hospital Problems Hospital Morbid obesity ([facility]) Hypertension Type 2 diabetes Overview [...] H 05/30/2025 2:40 PM Sheila Marcano PA [facility] 06/14/2025 1:40 PM Divine Archer APRN ENDOTFBNBR [facility] 06/22/2025 1:40 PM Mary Vicente MD [facility] Pertinent Physical Exam At Time of [...] Note Gonzalo Smalls 49 y.o. male CSN: [id number] Admission: 04/27/2025 9:29 PM Primary Problem: Diabetic foot ulcer Primary Package Clerk: Primary Caregiver: Self Assistance Available at Discharge: Availability of Care Givers (#Hours): 24 hours Housing Circumstances-Z Codes: Housing Circumstances (select all that apply): Low Income (101-300% Federal Poverty Guidlines) - Z596 Discharge Facility/Level of Care Needs: Discharge Facility/Level of Care Needs: 62-Rehab facilty ([place]) Patient's Choice of Community Agency(s): Patient's Choice of Community Agency(s): [facility] Patient/Family Anticipated Services at Transition: Patient/Family [...] 0800 Medicare Second Notice Recieved By: Gonzalo mSalls- the patient Follow-up: [facility] [address] [facility] [id number] Primary care provider (PCP) Malcolm Hayward, CIDER PRESS OPERATOR [address] [facility] [address] [facility] [address] Discharge Transportation: Transportation Anticipated: medical transport Transportation [...] Araceli in admission who confirmed pt's acceptance #[phone]. Pt updated and in agreement with d/c plan. Team and bedside RN updated. Bedside RN to call report to #[phone]. Araceli has access to [employer] and will get d/c s [facility] [address] way. [facility] [place] to transport the [...] Mobility Bed Mobility Exam: Scooting/Bridging Level of [place]: Contact guard Physical/Nonphysical Assist: Verbal Cues, Minimal cues Assistive Device: Overhead trapeze Bed Mobility Exam: Supine to Sit Level of [place]: Minimum assist (75% patient's effort) Physical/Nonphysical Assist: HOB elevated, Verbal Cues, Minimal cues Assistive Device: Overhead trapeze Bed Mobility Exam: Sit to Supine Level of [place]: Stand-by assist Physical/Nonphysical Assist: Verbal Cues, Minimal cues Assistive Device: Overhead trapeze Transfers Transfer Exam: Sit to stand Level of [place]: Maximum assist (25% patient's effort) Physical/Nonphysical Assist: Verbal Cues, Nonverbal cues (demo/gestures), Additional assist utilized for safety, Set-up required, Minimal cues Assistive Device: Walker, rolling (bariatric) Transfer Exam: Stand to Sit Level of [place]: Maximum assist (25% patient's effort) Physical/Nonphysical Assist: [...] help from Spouse Level of Mobility Mobility [place] Independent gait with device History of Falls [...] go, I'm just nervous. Visitors Present No Assembler Flexible Leads (if applicable) Assembler Flexible Leads: Not Applicable OBJECTIVE PAIN Pt was without c/o pain at the beginning of this session and throughout the PT treatment. Prior to INCOMING INSPECTOR's departure: * rest was provided * [...] by this therapist: BED MOBILITY Level of [place] Physical/Non- physical Assist Adaptive Equipment Utilized Rolling/ Turning Contact guard Verbal Cues, Set-up required, Minimal cues Bed rails, Other (TIME STUDY TECHNICIAN) Scooting/ Bridging Contact guard Verbal Cues, Minimal [...] breaks between standing trials. TRANSFERS Level of [place] Physical/Non- physical Assist Adaptive Equipment Utilized Sit [...] placement, sequencing, weight shifting, appropriate use of TIME STUDY TECHNICIAN, and maintaining NWB on RLE. Tactile cues provided to assist in sequencing and weight shifting. AMBULATION Level of [place] Distance Adaptive Equipment Utilized Ambulation N/A N/A N/A Comments Unable to side step or progress to forward hop step at bariatric RW level due to inabilityto maintain prolonged standing position while maintaining NWB in RLE. BALANCE Postural Appearance Posture: Within Functional Limits, Forward head Level of [place] Balance Support Activities Static Sit Standby assist [...] Abduction * Ankle pumps x1-2 sec holds INCOMING INSPECTOR provided minimal verbal and tactile cueing [...] overall. Standardized Assessments Standardized Assessments Standardized Assessments: [facility] 6-Clicks Mobility Assessment [facility] 6-Clicks Mobility Assessment Difficulty patient has [...] climbing 3-5 steps with a railing?: Unable [facility] 6-Clicks Mobility Assessment Total : 11 PATIENT / FAMILY EDUCATION Patient was educated regarding the PT POC and recommendations regarding discharge planning, as wellas progressively increased time spent out of bed/up to chair, and continued mobilization / ambulation with nursing staff as tolerated to promote increased activity tolerance and Endurance. INCOMING INSPECTOR providing verbal cues/demonstration for pursed-lip breathing technique to promote improved ventilation, decreased respiratory rate and energy conservation with activity. INCOMING INSPECTOR stressed to patient the importance of [...] has been following with urology outpatient at [facility]. They have postulated this to [...] Ongoing, Progressing Intervention: Promote Activity and Functional [place] Flowsheets Taken 05/16/20251999 by Ivan Slaugther RN Activity Assistance Provided: assistance, 1 person Taken 05/16/20251948 by Ivan Slaughter RN Self-Care Promotion: independence encouraged Taken 05/15/2025 1148 by Santy Garcia, RN Adaptive Equipment Use: used independently * Progress Notes - Sugey Momin, CIDER PRESS OPERATOR - 05/17/2025 10:29 AM EST Endocrine - [...] mellitus - type 2 -Home medications: CGM: YETI Group G7 Insulin regimen: U500 insulin: prescription for [...] -Diabetes education: completed 05/10 -Follow-up plan: home business mail entry clerk - Dr Anette Kendall -Tentative discharge recommendations: -pt will need close monitoring by rehab facility provider as changes in diet and activity level maylead to changes in glycemic patterns and insulin requirement NOTE: -patient reports that once the new year hits, he worries about the cost of U500 insulin --> discussed cost through [employer] - should be able to get vials of U500 at $35 per vial. Also discussed contacting [employer] directly for the financial assistance program. -hopefully [...] team via secure chat or page us [phone] during 7a-7p, Thursday-Thursday. For after hours please [...] Ongoing, Progressing Intervention: Promote Activity and Functional [place] Flowsheets (Taken 05/16/20251948) Self-Care Promotion: independence encouraged * Progress Notes - Chayo Jennings RN - 05/16/2025 2:16 PM EST Case Management Adult Progress Note Gonzalo Smalls 49 y.o. male CSN: [id number] Admission: 04/27/2025 9:29 PM Primary Problem: Diabetic foot ulcer Anticipated Discharge Date: 05/18/25 Pt is in a need for rehab placement and was referred and accepted by Merly Espinoza- LOLA CM spoke with Araceli in admission, ph#[phone] who confirmed pts acceptance. Pt updated and [...] Note Gonzalo Smalls 49 y.o. male CSN: [id number] This is a 49 y.o. male patient was admitted to [facility] with the diagnosis of Diabetic [...] Hayward APRN, [facility]End[facility] is Dr. Garvey in [place], [place]. Medication Education instructions given: The use [...] Prevention , pt reports he has a catalogue and special products manager as well Follow Ups: Provided with educational [...] has been following with urology outpatient at [facility]. They have postulated this to [...] the video go to this web address: [email or web address] Or, scan this QR code with your [...] to gently smooth the nail. Have a catalogue and special products manager trim your nails if you can't see [...] remove corns, calluses, or warts by yourself. Vwvv-nud-uelocco products can burn or damage your skin. [...] your primary care doctor or by a catalogue and special products manager. This is a doctor who specializes in foot care. Some diabetes centers have regular foot clinics. Last Reviewed Date: 2024 00:00:00 ?? [id number] [employer]. All rights reserved. This information is not intended as a substitute for professional medical care. Always follow your healthcare professional's instructions. * Ruy HoffmanMENG - Vivian Garcia RN - 05/16/2025 11:06 AM EST Images from the original note were not included. [address]323 Inspecting Your Feet (Diabetes) Zgjz-kw-[id number]: Last Reviewed Date: 2024 00:00:00 ?? [id number] [employer]. All rights reserved. This information is not [...] -Diabetes education: completed 05/10 -Follow-up plan: home business mail entry clerk - Anette Kendall -Tentative discharge recommendations: -pt will need close monitoring by rehab facility provider as changes in diet and activity level maylead to changes in glycemic patterns and insulin requirement NOTE: -patient reports that once the new year hits, he worries about the cost of U500 insulin --> discussed cost through [employer] - should be able to get vials of U500 at $35 per vial. Also discussed contacting [employer] directly for the financial assistance program. -patient with plans to discharge to [facility] once able - need to check with [facility] to see if they are okay with utilizing U500 insulin if patient is able to bring in his own supply Insulin regimen - would like patient to utilize U500 home dosing at [facility] Continue Dexcom G7 CGM Likely continue [...] team via secure chat orpage us at [phone] during 7a-7p, Thursday-Thursday. For after hours please contact the on-call Endocrine Fellow. Thank you for the opportunity to participate in this patient's care. - Reviewed notes by primary team and consulting services to determine appropriate plan of care as in the note. - Discussed plan and management with patient and clinical informatics educator Time Spent: I personally spent a [...] Note Gonzalo Smalls 49 y.o. male CSN: [id number] Room/Bed 117/117A Nutrition evaluation type: follow-up Reason [...] Supplemental oxygen O2 Delivery Method: Nasal cannula [place] Coma Scale Score: 15 Miguel Ángel Scale [...] Weight Evaluation: Extreme Obesity (BMI > 40) [place] Body Weight (kg): 80.9 Percent [place] Body Weight: 311 Adjusted Body Weight (kg): [...] Regular Adult Carbohydrate Restriction: Consistent CHO 2 (5236-3791 Steven, 80 g/meal) Adult Sodium Restriction: 2,000 mg Na Percent Meals Eaten (%): 75-100% of meals Diet Experience and Nutrition History: Diet Education Provided: Will monitor Pertinent home medications: Albuterol, Bumex, Insulin, Metformin, Ozempic, Aldactone Muslim needs: Nutrition Focused Physical Exam: Physical exam [...] has been following with urology outpatient at [facility]. They have postulated this to be related to his diabetes and have had several voiding trials which have failed. Also has un dergone proctoscopy (?) which was normal. Started on flomax several weeks INCOMING INSPECTOR and this has not beenhelpful. and [...] plan and management with patient. Selin Lee All Around Gear Machine Operator Division of Hospital Medicine [facility] * Care Plan - Santy Garcia, RN [...] Note Gonzalo Smalls 49 y.o. male CSN: [id number] Admission: 04/27/2025 9:29 PM Primary Problem: Diabetic foot ulcer Anticipated Discharge Date: TBD Pt was referred to many SNF in and out [facility]. Few SNF are considering accepting the pt along with [facility], ph#[phone]. LOLA TOVAR spoke with Araceli- admission at [facility]. Araceli is stating that she is [...] (H) 05/13/2025 I reviewed bg tracing in [facility] glucose timeline 05/15/25 ASSESSMENT Hospital Course: [...] -Diabetes education: completed 05/10 -Follow-up plan: home business mail entry clerk - Anette Kendall -Tentative discharge recommendations: -pt will need close monitoring by rehab facility provider as changes in diet and activity level maylead to changes in glycemic patterns and insulin requirement NOTE: -patient reports that once the new year hits, he worries about the cost of U500 insulin --> discussed cost through [employer] - should be able to get vials of U500 at $35 per vial. Also discussed contacting [employer] directly for the financial assistance program. -patient with plans to discharge to [facility] once able - need to check with [facility] to see if they are okay with utilizing U500 insulin if patient is able to bring in his own supply Insulin regimen - would like patient to utilize U500 home dosing at [facility] Continue Dexcom G7 CGM Likely continue [...] team via secure chat orpage us at [phone] during 7a-7p, Thursday-Thursday. For after hours please [...] (H) 05/12/2025 I reviewed bg tracing in [facility] glucose timeline 05/14/25 ASSESSMENT Hospital Course: Gonzalo [...] -Diabetes education: completed 05/10 -Follow-up plan: home business mail entry clerk - Anette Kendall -Tentative discharge recommendations: -pt [...] at $35 per vial. Also discussed contacting [employer] directly for the financial assistance program. -patient with plans to discharge to [facility] once able - need to check with [facility] to see if they are okay with utilizing U500 insulin if patient is able to bring in his own supply Insulin regimen - would like patient to utilize U500 home dosing at [facility] Continue Dexcom G7 CGM Likely continue [...] via secure chat or page us at [phone] during 7a-7p, Thursday-Thursday. For after hours please [...] Ongoing, Progressing Intervention: Promote Activity and Functional [place] Flowsheets Taken 05/14/2025 09 Self-Care Promotion: independence encouraged BADL personal objects within reach BADL personal routines maintained meal set-up provided Taken 05/14/2025 0800 Activity Assistance Provided: assistance, stand-by assistance, 2 people Taken 05/13/2025 09 Adaptive Equipment Use: used independently Problem: Self-Care Deficit Goal: Improved Ability to Complete Activities of Daily Living Outcome: Ongoing, Progressing Intervention: Promote Activity and Functional [place] Flowsheets Taken 05/14/202546 Self-Care Promotion: independence encouraged [...] has been following with urology outpatient at [facility]. They have postulated this to be related to his diabetes and have had several voiding trials which have failed. Also has un dergone proctoscopy (?) which was normal. Started on flomax several weeks INCOMING INSPECTOR and this has not beenhelpful. and [...] plan and management with patient. Selin Lee All Around Gear Machine Operator Division of Hospital Medicine [facility] [...] Ongoing, Progressing Intervention: Promote Activity and Functional [place] Flowsheets (Taken 05/13/20251999) Activity Assistance Provided: assistance, [...] mellitus - type 2 -Home medications: CGM: YETI Group G7 Insulin regimen: U500 insulin: prescription for [...] -Diabetes education: completed 05/10 -Follow-up plan: home business mail entry clerk - Anette Kendall -Tentative discharge recommendations: -pt will need close monitoring by rehab facility provider as changes in diet and activity level maylead to changes in glycemic patterns and insulin requirement NOTE: -patient reports that once the new year hits, he worries about the cost of U500 insulin --> discussed cost through [employer] - should be able to get vials of U500 at $35 per vial. Also discussed contacting [employer] directly for the financial assistance program. -patient with plans to discharge to [facility] once able - need to check with [facility] to see if they are okay with utilizing U500 insulin if patient is able to bring in his own supply Insulin regimen - would like patient to utilize U500 home dosing at [facility] Continue Dexcom G7 CGM Likely continue [...] via secure chat or page us at [phone] during 7a-7p, Thursday-Thursday. For after hours please [...] Ongoing, Progressing Intervention: Promote Activity and Functional [place] Flowsheets Taken 05/13/2025 0931 Adaptive Equipment Use: [...] has been following with urology outpatient at [facility]. They have postulated this to be related to his diabetes and have had several voiding trials which have failed. Also has un dergone proctoscopy (?) which was normal. Started on flomax several weeks INCOMING INSPECTOR and this has not beenhelpful. and [...] plan and management with patient. Selin Lee All Around Gear Machine Operator Division of Hospital Medicine [facility] * Care Plan - Genaro Haritha M [...] Ongoing, Progressing Intervention: Promote Activity and Functional [place] Flowsheets (Taken 05/12/20252128) Activity Assistance Provided: assistance, 2 people Self-Care Promotion: independence encouraged BADL personal objects within reach BADL personal routines maintained meal set-up provided * Progress Notes - Max Alexander - 05/12/2025 4:32 PM EDT Case Management Adult Progress Note Gonzalo Smalls 49 y.o. male CSN: [id number] Admission: 04/27/2025 9:29 PM Primary Problem: Diabetic foot ulcer Anticipated Discharge Date: TBD Plan of care reviewed with pt's care team; and per MD, pt is medically ready for discharge pending placement. SW sent 145 Referral via [facility]. SW will continue to follow-up with pt's MD and care team on their progress and discharge plan. Max Alexander, DOOR PULLER, CORN [employer]OWER Senior Cissp/Case Management [facility] * Progress Notes - Selin Lee [...] has been following with urology outpatient at [facility]. They have postulated this to be related to his diabetes and have had several voiding trials which have failed. Also has un dergone proctoscopy (?) which was normal. Started on flomax several weeks INCOMING INSPECTOR and this has not beenhelpful. and [...] plan and management with patient. Selin Lee All Around Gear Machine Operator Division of [facility] Medicine [facility] * Progress Notes - Lynda Choudhury, CIDER PRESS OPERATOR - 05/12/2025 12:58 PM EDT Endocrine [...] -Diabetes education: completed 05/10 -Follow-up plan: home business mail entry clerk - Anette Kendall -Tentative discharge recommendations: -pt [...] at $35 per vial. Also discussed contacting [employer] directly for the financial assistance program. -patient with plans to discharge to [facility] once able - need to check with [facility] to see if they are okay with utilizing U500 insulin if patient is able to bring in his own supply Insulin regimen - would like patient to utilize U500 home dosing at [facility] Continue Dexcom G7 CGM Likely continue [...] via secure chat or page us at [phone] during 7a-7p, Thursday-Thursday. For after hours please [...] remission, Anxiety disorder, unspecified, Arthritis, Atrial fibrillation ([facility]), CAP (community acquired pneumonia) (05/19/2024), [...] understanding. Participants in Care Family/Caregiver Present: No Assembler Flexible Leads: Not Applicable Presentation Oxygen Therapy: Supplemental oxygen [...] of Function Receives Help From: Spouse Mobility [place]: Independent gait with device ADL Performance: Needs assistance Bathing: Needs assist Upper Body Dressing: Needs assist Lower Body Dressing: Needs assist Grooming: Needs assist Toileting: Independent Eating: Independent Home Management Skills: Needs assist Patient/Family Goals Return home at [facility] Objective Pain Pt reported 7/10 [...] Mobility Bed Mobility Exam: Scooting/Bridging Level of [place]: Contact guard (scooting hips forward to edge of bed) Physical/Nonphysical Assist: Verbal Cues, Minimal cues Assistive Device: Overhead trapeze Bed Mobility Exam: Supine to Sit Level of [place]: Minimum assist (75% patient's effort) Physical/Nonphysical Assist: HOB elevated, Verbal Cues Assistive Device: Overhead trapeze Bed Mobility Exam: Sit to Supine Level of [place]: Stand-by assist Physical/Nonphysical Assist: Verbal Cues, Minimal cues Assistive Device: Overhead trapeze Transfers Transfer Exam: Sit to stand Level of [place]: Maximum assist (25% patient's effort) (x3 reps from edge of bed, good adherence to NWB RLE) Physical/Nonphysical Assist: Verbal Cues, Nonverbal cues (demo/gestures), Additional assist utilized for safety Assistive Device: Walker, rolling (bariatric) Transfer Exam: Stand to Sit Level of [place]: Maximum assist (25% patient's effort) Physical/Nonphysical Assist: [...] \ Standardized Assessments Standardized Assessments Standardized Assessments: [facility] 6-Clicks Mobility Assessment [facility] 6-Clicks Mobility Assessment Difficulty patient has [...] climbing 3-5 steps with a railing?: Unable [facility] 6-Clicks Mobility Assessment Total : 11 [...] remission, Anxiety disorder, unspecified, Arthritis, Atrial fibrillation ([facility]), CAP (community acquired pneumonia) (05/19/2024), [...] session. Participants in Care Family/Caregiver Present: No Assembler Flexible Leads: Not Applicable Presentation Oxygen Therapy: Supplemental oxygen [...] of Function Receives Help From: Spouse Mobility [place]: Independent gait with device ADL Performance: Needs [...] Mobility Bed Mobility Exam: Scooting/Bridging Level of [place]: Contact guard (scooting hips forward to edge of bed) Physical/Nonphysical Assist: Verbal Cues, Minimal cues Bed Mobility Exam: Supine to Sit Level of [place]: Minimum assist (75% patient's effort) Physical/Nonphysical Assist: HOB elevated, Verbal Cues Assistive Device: Overhead trapeze Bed Mobility Exam: Sit to Supine Level of [place]: Stand-by assist Physical/Nonphysical Assist: Verbal Cues, Minimal cues Assistive Device: Overhead trapeze Transfers Transfer Exam: Sit to stand Level of [place]: Maximum assist (25% patient's effort) (x3 reps from edge of bed, good adherence to NWB RLE) Physical/Nonphysical Assist: Verbal Cues, Nonverbal cues (demo/gestures), Additional assist utilized for safety Assistive Device: Walker, rolling (bariatric) Transfer Exam: Stand to Sit Level of [place]: Maximum assist (25% patient's effort) Physical/Nonphysical Assist: [...] upper extremity support, Left upper extremity support ([facility] RW) Static Standing-Level of Assistance: Maximum [...] x3 reps of sit to stand to [facility] RW with max Ax2 persons each [...] Where Assessed: Other (Comment) (in stance at [facility] RW level) Toileting Interventions: Pt with [...] a helper. 5 Set-up or Clean-up Assistance Weston sets up or cleans up; patient completes activity. Weston assists only prior to or following the activity. 4 Supervision or touching assistance Weston provides verbal cues and/or touching/steadying and/or contact guard assistance as patient completes activity. Assistance may be provided throughout the activity or intermittently. 3 Partial/Moderate Assistance Weston does LESS THAN HALF the effort. Weston lifts, holds or supports trunk or limbs, but provides less than half the effort. 2 Substantial/Maximal Assistance Weston does MORE THAN HALF the effort. Weston lifts or holds trunkor limbs and provides more than half the effort. 1 Dependent Weston does ALL of the effort. Patient does [...] Note Gonzalo Smalls 49 y.o. male CSN: [id number] Admission: 04/27/2025 9:29 PM Primary Problem: Diabetic foot ulcer Anticipated Discharge Date: TBD RN CM informed by bedside RN that pt's weight was obtained and current weight is 244.3kg (538.5 lbs)- due to pt being over 500 lbs [facility] is not able to accept [...] Note Gonzalo Smalls 49 y.o. male CSN: [id number] Admission: 04/27/2025 9:29 PM Primary Problem: Diabetic foot ulcer Anticipated Discharge Date: TBD LOLA TOVAR f/ u with [facility]- admission at [facility]. [facility] is stating that they might be able to accept the pt if under 500lbs. Team and bedside RN updated. Bedside RN will attempt to obtain pt's current weight. RN LA will continue to follow. Chayo Jennings RN * Progress Notes - Lynda Choudhury, CIDER PRESS OPERATOR - 05/11/2025 11:01 AM EDT Endocrine - [...] him in the OR. Of note, Mr. 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 Also discussed contacting [employer] directly for the financial assistance program. -patient with plans to discharge to [facility] once able - need to check with [facility] to see if they are okay with utilizing U500 insulin if patient is able to bring in his own supply Insulin regimen - would like patient to utilize U500 home dosing at [facility] Continue Dexcom G7 CGM Likely continue [...] via secure chat or page us at [phone] during 7a-7p, Thursday-Thursday. For after hours please [...] has been following with urology outpatient at [facility]. They have postulated this to be related to his diabetes and have had several voiding trials which have failed. Also has un dergone proctoscopy (?) which was normal. Started on flomax several weeks INCOMING INSPECTOR and this has not beenhelpful. and [...] the labs[facility]als[facility]. Current condition is not at [...] plan and management with patient. Selin Lee All Around Gear Machine Operator Division of Hospital Medicine [facility] [...] has been following with urology outpatient at [facility]. They have postulated this to be related to his diabetes and have had several voiding trials which have failed. Also has un dergone proctoscopy (?) which was normal. Started on flomax several weeks INCOMING INSPECTOR and this has not beenhelpful. and he were hoping to get a second opinion while here at - [facility] 05/06 - [facility] care per protocol - Continue home flomax - Continue finasteride, started 05/06 - Urology consulted, No urologic intervention indicated at this time, recommend continuing indwelling barbre with exchanges every 4-6 weeks for chronic [...] [facility]. Current condition is not at [...] plan and management with patient. Selin Lee All Around Gear Machine Operator Division of Hospital Medicine [facility] * Progress Notes - Chayo Jennings RN - 05/10/2025 8:59 AM EDT Case Management Adult Progress Note Gonzalo Smalls 49 y.o. male CSN: [id number] Admission: 04/27/2025 9:29 PM Primary Problem: Diabetic foot ulcer Anticipated Discharge Date: TBD LOLA TOVAR f/u on [facility] referral and was told that [facility] physician declined pt's acceptance to [facility]. RN CMvisited with the pt this morning to discuss d/c plan. Pt is in agreement to be referred to [facility]- referral to [facility] initiated on this day. Team aware. LOLA TOVAR will continue to follow and assist with d/c plan and as needed. 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 Also discussed contacting [employer] directly for the financial assistance program. -patient with plans to discharge to [facility] once able - need to check with [facility] to see if they are okay with utilizing U500 insulin if patient is able to bring in his own supply Insulin regimen - would like patient to utilize U500 home dosing at [facility] Continue Dexcom G7 CGM Likely continue [...] team via secure chat orpage us at [phone] during -7p, Thursday-Thursday. For after hours please [...] Intervention: Promote Wound Healing Flowsheets (Taken 05/10/2025 64) Sleep/Rest Enhancement: consistent schedule promoted natural light [...] sit <> stand transfers Visitors Present none Assembler Flexible Leads (if applicable) N/a OBJECTIVE PAIN Pt endorses [...] Mobility Bed Mobility Exam: Scooting/Bridging Level of [place]: Stand-by assist Physical/Nonphysical Assist: Verbal Cues, Minimal cues Assistive Device: Overhead trapeze Bed Mobility Exam: Supine to Sit Level of [place]: Stand-by assist Physical/Nonphysical Assist: Verbal Cues, Minimal cues, HOB elevated Assistive Device: Overhead trapeze Bed Mobility Exam: Sit to Supine Level of [place]: Stand-by assist Physical/Nonphysical Assist: Verbal Cues, Minimal cues Assistive Device: Overhead trapeze Transfers Transfer Exam: Sit to stand Level of [place]: Maximum assist (25% patient's effort) Physical/Nonphysical Assist: Set-up required, Additional assist utilized for safety, Maximal cues, Verbal Cues, Nonverbal cues (demo/gestures) Assistive Device: Hand held assist Transfer Exam: Stand to Sit Level of [place]: Maximum assist (25% patient's effort) Physical/Nonphysical Assist: [...] session Participants in Care Family/Caregiver Present: No Assembler Flexible Leads: Not Applicable Presentation Oxygen Therapy: Supplemental oxygen [...] sequencing Bed Mobility Exam: Scooting/Bridging Level of [place]: Stand-by assist Physical/Nonphysical Assist: Verbal Cues, Minimal cues Assistive Device: Overhead trapeze Bed Mobility Exam: Supine to Sit Level of [place]: Stand-by assist Physical/Nonphysical Assist: Verbal Cues, Minimal cues, HOB elevated Assistive Device: Overhead trapeze Bed Mobility Exam: Sit to Supine Level of [place]: Stand-by assist Physical/Nonphysical Assist: Verbal Cues, Minimal [...] placement, sequencing, weight shifting, appropriate use of TIME STUDY TECHNICIAN, and maintaining NWB on LLE. Tactile cues provided to assist in sequencing and weight shifting. Transfer Exam: Sit to stand Level of [place]: Maximum assist (25% patient's effort) Physical/Nonphysical Assist: Set-up required, Additional assist utilized for safety, Maximal cues, Verbal Cues, Nonverbal cues (demo/gestures) Assistive Device: Hand held assist Transfer Exam: Stand to Sit Level of [place]: Maximum assist (25% patient's effort) Physical/Nonphysical Assist: [...] assistance Static Standing - Interventions: Standing w TIME STUDY TECHNICIAN Therapeutic Activity (40 minutes) See bed mobility, balance, and transfers sections for more detail. Standardized Assessments [facility] 6-Clicks Mobility Assessment Difficulty patient has [...] climbing 3-5 steps with a railing?: Unable [facility] 6-Clicks Mobility Assessment Total : 13 [...] Note Gonzalo Smalls 49 y.o. male CSN: [id number] Room/Bed 117/117A Nutrition evaluation type: follow-up Reason [...] Weight Evaluation: Extreme Obesity (BMI > 40) [place] Body Weight (kg): 80.9 Percent [place] Body Weight: 311 Adjusted Body Weight (kg): [...] Regular Adult Carbohydrate Restriction: Consistent CHO 2 ([id number] Steven, 80 g/meal) Adult Sodium Restriction: 2,000 mg Na Percent Meals Eaten (%): 100% of meals Diet Experience and Nutrition History: Diet Education Provided: Will monitor Pertinent home medications: Albuterol, Bumex, Insulin, Metformin, Ozempic, Aldactone Muslim needs: Nutrition Focused Physical Exam: Physical exam [...] continue to assess need -Follow-up plan: home business 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 For after hours please [...] has been following with urology outpatient at [facility]. They have postulated this to be related to his diabetes and have had several voiding trials which have failed. Also has un dergone proctoscopy (?) which was normal. Started on flomax several weeks INCOMING INSPECTOR and this has not beenhelpful. 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 For after hours please [...] Note Gonzalo Smalls 49 y.o. male CSN: [id number] Admission: 04/27/2025 9:29 PM Primary Problem: Diabetic [...] acute rehab. RNCM awaiting MD approval from [facility]. Liaison will reach out with answer. Will continue to follow. RNCM will continue to monitor for further discharge needs. Mayra Apodaca RN * Care Plan - Jeevan Shah RN - 05/08/2025 12:43 PM EDT Problem: Wound Goal: Optimal Wound Healing Outcome: Ongoing, Progressing Intervention: Promote Wound Healing Note: See recs, cont wound vac Patient evaluated by [facility] nurse, individualized recommendations placed and care [...] 05/08/2025 10:19 AM Wound Image Wound Assessment [place];Red (moist) Margins Well-defined edges [place]-Wound Assessment Intact [...] the video go to this web address: [email or web address] Or, scan this QR code with your smart phone ?? [facility] * Thi Chavarria, RN - 05/08/2025 10:55 AM EDT Images from the original note were not included. Type 2 diabetes: 7 Ways to Prevent Budget Manager Complications - Video Watch this video to understand that having type 2 diabetes can lead to long-term complications if it is not managed correctly. To view the video go to this web address: [email or web address] Or, scan this QR code with your smart phone ?? [facility] * Thi Chavarria, RN - 05/08/2025 10:55 AM EDT Images from the original note were not included. Diabetes: Daily Foot Check - Video Watch this video to learn how diabetes affects the feet and how to do daily foot checks. To view the video go to this web address: [email or web address] Or, scan this QR code with your [...] to gently smooth the nail. Have a catalogue and special products manager trim your nails if you can't see [...] remove corns, calluses, or warts by yourself. Upov-teh-jddisbl products can burn or damage your skin. [...] your primary care doctor or by a catalogue and special products manager. This is a doctor who specializes in foot care. Some diabetes centers have regular foot clinics. Last Reviewed Date: 2024 00:00:00 ?? 2157-0375 The [employer]. All rights reserved. This information is not [...] the video go to this web address: [email or web address] Or, scan this QR code with your [...] recurrent UTIs,BPH, morbid obesity who presented to [facility] ED with diabetic foot ulcer. On 12/21/2024 [...] states. After this he presented to an [facility] urologist Dr. Painting who stated to patient [...] (NEURONTIN) 600 mg, 3 times daily HYDROcodone-acetaminophen ([place]) 10-325 MG tablet 1 tablet, Every 6 hours PRN Insulin Pen Needle (Pen [place]) 31G X 5 MM mis USE TO [...] obesity and uncontrolled diabetes who presented to [facility] ED with diabetic foot ulcer. On 12/21/2024 [...] states. After this he presented to an [facility] urologist Dr. Painting who stated to patient [...] established care with a Dr. Mendenhall an [facility] urologist as this is closer to home [...] established care with a Dr. Abdirashid bob [facility] urologist as this is closer to home [...] has been following with urology outpatient at [facility]. They have postulated this to be related to his diabetes and have had several voiding trials which have failed. Also has un dergone proctoscopy (?) which was normal. Started on flomax several weeks INCOMING INSPECTOR and this has not beenhelpful. and [...] Mobility Bed Mobility Exam: Scooting/Bridging Level of [place]: Stand-by assist Physical/Nonphysical Assist: Verbal Cues Bed Mobility Exam: Supine to Sit Level of [place]: Contact guard Physical/Nonphysical Assist: Set-up required, Verbal Cues, Minimal cues Bed Mobility Exam: Sit to Supine Level of [place]: Minimum assist (75% patient's effort) Physical/Nonphysical Assist: Set-up required, Verbal Cues, Minimal cues Transfers Transfer Exam: Sit to stand Level of [place]: (Pt attempted with use of bariatric RW; [...] return to supine. Therapeutic Exercise Access Code: [email or web address] HEP printed and pt received copy with [...] provided based on observable deficits.* Level of [place] Interventions Grooming Patient demo's adequate BUE strength/ROM [...] maintain WB status. FUNCTIONAL MOBILITY Level of [place] Physical/Non-physical Assist Adaptive Equipment Utilized Scooting/ Bridging [...] Appearance Posture: Within Functional Limits Level of [place] Balance Support Static Sit Standby assist Feet supported Dynamic Sit Standby assisst Feet supported THERAPEUTIC EXERCISE INTERVENTIONS (10 minutes) Treatment Details The patient was educated re: implementation of BUE HEP in order to target muscle groups necessary for functional mobility and ADL independence. HEP printed and each exercise reviewed, pt verbalized understanding. Penxy Access Details (if appropriate) Access Code: [email or web address] URL: [email or web address] Date: 05/07/25 Exercises Included - Seated Elbow [...] has been following with urology outpatient at [facility]. They have postulated this to be related to his diabetes and have had several voiding trials which have failed. Also has un dergone proctoscopy (?) which was normal. Started on flomax several weeks INCOMING INSPECTOR and this has not beenhelpful. and [...] now * Progress Notes - Aileen Leonardo, CIDER PRESS OPERATOR - 05/07/2025 7:33 AM EDT Endocrine [...] insulin regimen -assisted patient with downloading dexcom Kliqed7 pooja on new phone. 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 For after hours please [...] has been following with urology outpatient at [facility]. They have postulated this to be related to his diabetes and have had several voiding trials which have failed. Also has un dergone proctoscopy (?) which was normal. Started on flomax several weeks INCOMING INSPECTOR and this has not beenhelpful. 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 For after hours please [...] is in abx, has his CHG and [place] wipes done in this shift Problem: Mobility [...] vascular surgery; wound vac applied 05/03 by [facility] Wound Assessment: Wound 05/01/25 Surgical Toe (Comment which one) Anterior;Right (Active) Date First Assessed/Time First Assessed: 05/01/25 0805 Present on Original Admission: No Hand Hygiene Completed: Yes Primary Wound Type: Surgical Location: Toe (Comment which one) Wound Location Orientation: Anterior;Right Assessments 05/05/2025 11:44 AM Wound Image Wound Assessment [place];Red (moist , full thickness) Margins Well-defined edges [...] no orders noted for wound vac, maessaged [facility] team for guidance. Orders placedfor nursing [...] wound vac in use Patient evaluated by [facility] nurse, individualized recommendations placed and care plan interventions updated; see wound care note for details regarding recommendations to support optimal wound healing. * Progress Notes - Mayra Apodaca RN - 05/05/2025 12:30 PM EDT Case Management Adult Progress Note Gonzalo Smalls 49 y.o. male CSN: [id number] Admission: 04/27/2025 9:29 PM Primary Problem: Diabetic [...] No MDRO isolated 04/27/25 Blood culture NGTD [facility] Culture Data: - 04/25/25: Blood [...] pathology. Patient is planned to discharge to [facility]. Recommend close follow-up with vascular [...] PA-C Division of Infectious Diseases Available by Reach[employer] History, assessment, and plan discussed with ID [...] mg 600 mg Oral BID PRN Diane uGzman MD 600 mg at 05/04/25 1625 insulin [...] (H) 05/03/2025 I reviewed bg tracing in [facility] glucose timeline 05/05/25 ASSESSMENT Hospital Course: Gonzalo [...] mellitus - type 2 -Home medications: CGM: YETI Group G7 Insulin regimen: U500 insulin: prescription for [...] via secure chat or page us at [phone] during 7a-7p, Thursday-Thursday. For after hours please [...] precautions. Bed Mobility Exam: Rolling/Turning Level of [place]: Contact guard Physical/Nonphysical Assist: Verbal Cues, Moderate cues Bed Mobility Exam: Scooting/Bridging Level of [place]: Stand-by assist Bed Mobility Exam: Supine to Sit Level of [place]: Contact guard Physical/Nonphysical Assist: Verbal Cues Bed Mobility Exam: Sit to Supine Level of [place]: Stand-by assist Patient performed rolling bilaterally for placement of lift pad. Transfers Transfer Exam: Sit to stand Level of [place]: (Patient unable to perform without engaging right [...] promote tempo and full ROM. Standardized Assessments [facility] 6-Clicks Mobility Assessment Difficulty patient has [...] climbing 3-5 steps with a railing?: Unable [facility] 6-Clicks Mobility Assessment Total : 12 [...] help from Spouse Level of Mobility Mobility [place] History of Falls ADL Performance Needs assistance [...] to therapy this date. Visitors Present No Assembler Flexible Leads (if applicable) OBJECTIVE PAIN Pain Score (0-10): [...] sba for bed mobility tasks. Level of [place] Adaptive Equipment Utilized Comments Feeding Grooming Setup washing face/hands Bathing Upper Body Dressing Lower Body Dressing Shoe Level of Assistance: Dependent Toileting IADLs Health Management Community Re-Entry BALANCE Postural Appearance INTERVENTIONS Level of [place] Balance Support Comments Static Sit Standby assist [...] weight shifting to promote safety. Level of [place] Physical/Non-physical Assist Adaptive Equipment Utilized Rolling/ Turning [...] No MDRO isolated 04/27/25 Blood culture [facility] Culture Data: - 04/25/25: Blood [...] DFU - Urinary retention with Chronic Indwelling Abrber - Recurrent UTI with recent history of [...] PA-C Division of Infectious Diseases Available by LxDATA Chat History, assessment, and plan discussed with [...] mL IVPB (vial adapter required) 2 g [id number] Merriam, Diane E, MD 36.7 mL/hr at 05/03/25 [...] Subcutaneous TID with meals Martinez, Sarah P, CIDER PRESS OPERATOR 30 Units at 05/03/251810 Insulin Lispro (Admelog, HumaLOG) 100 UNIT/ML injection 8 Units 8 Units Subcutaneous BID PRN Martinez,Sarah P, CIDER PRESS OPERATOR insulin NPH (Isophane) (HumuLIN N,NovoLIN N) injection 50 Units 50 Units Subcutaneous BID Martinez, Sarah P, CIDER PRESS OPERATOR 50 Units at 05/03/252043 ipratropium-albuterol (Duo-Neb) [...] syndrome * Progress Notes - Aileen Leonardo, CIDER PRESS OPERATOR - 05/04/2025 8:37 AM EDT Endocrine - [...] (H) 05/02/2025 I reviewed bg tracing in [facility] glucose timeline 05/04/25 ASSESSMENT Hospital Course: [...] continue to assess need -Follow-up plan: home 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 For after hours please [...] from the original note were not included. [facility] Department of Surgery Division of Vascular [...] an 49 y.o. male who presented to [facility] 04/27/2025 with diabetic foot ulcer [...] Note Gonzalo Smalls 49 y.o. male CSN: [id number] Admission: 04/27/2025 9:29 PM Primary Problem: Diabetic [...] No MDRO isolated 04/27/25 Blood culture [facility] Culture Data: - 04/25/25: Blood [...] PA-C Division of Infectious Diseases Available by [employer] History, assessment, and plan discussed with ID [...] Units Subcutaneous TID with meals Sarah Martinez, CIDER PRESS OPERATOR 30 Units at 05/03/25 0920 Insulin Lispro (Admelog, HumaLOG) 100 UNIT/ML injection 6 Units 6 Units Subcutaneous BID PRN Sarah Martinez P, CIDER PRESS OPERATOR insulin NPH (Isophane) (HumuLIN N,NovoLIN N) injection 42 Units 42 Units Subcutaneous BID Sarah Martinez, CIDER PRESS OPERATOR 42 Units at 05/03/25 0919 ipratropium-albuterol (Duo-Neb) 0.5-2.5 mg/3 mL nebulizer solution 3 mL 3 mL Nebulization q4h PRN Marjorie Myers MD Kyree powder 1 packet 1 packet Oral BID Diane Guzman MD 1 packet at 05/03/25 0934 LORazepam (Ativan) tablet 1 mg 1 mg Oral Daily PRN Marjorie yMers MD 1 mg at 04/30/25 203 magnesium [...] 1 Application 1 Application Each Nostril BID aMrjorie Myers MD 1 Application at 05/03/25 0922 [...] continue to assess need -Follow-up plan: 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 For after hours please [...] from the original note were not included. [facility] of Medicine Department of [...] Ongoing, Progressing Flowsheets (Taken 05/02/20251819 by Santy Garica RN) Progress: improving Plan of Care Reviewed [...] degrees Note: See recs Patient evaluated by [facility] nurse, individualized recommendations placed and care [...] No MDRO isolated 04/27/25 Blood culture [facility] Culture Data: - 04/25/25: Blood [...] PA-C Division of Infectious Diseases Available by [employer]ach[employer] History, assessment, and plan discussed with ID [...] Note Gonzalo Smalls 49 y.o. male CSN: [id number] Room/Bed 117/117A Nutrition evaluation type: assessment Reason [...] at bedside. Good appetite both now and INCOMING INSPECTOR. No known unintentional weight changes, UBW [...] Weight Evaluation: Extreme Obesity (BMI > 40) [place] Body Weight (kg): 80.9 Percent [place] Body Weight: 311 Adjusted Body Weight (kg): [...] Regular Adult Carbohydrate Restriction: Consistent CHO 1 (0834-7416 Steven, 65 g/meal) Adult Sodium Restriction: 2,000 mg Na Percent Meals Eaten (%): 68% avg x 5 meals Diet Experience and Nutrition History: Diet Education Provided: Will monitor Pertinent home medications: Albuterol, Bumex, Insulin, Metformin, Ozempic, Aldactone Muslim needs: Nutrition Focused Physical Exam: Physical exam [...] from the original note were not included. [facility] Department of Surgery Division of Vascular [...] snacking overnight while watching the games including Kaiima, goldfish, ritz crackers and other snacks -no [...] -plan and management discussed with patient, clinical informatics educator, bedside RN NOTE: -Patient utilizes U500 insulin pen at home. With the U500 pen, a conversion is not needed. Typically patient's required a 70% reduction in home U500 dosing. 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 For after hours please [...] consulted and rec amputation vs transfer to [facility] for podiatry input about foot salvage : cannot transfer to [facility] given weight limit, pod team cannot [...] Note Gonzalo Smalls 49 y.o. male CSN: [id number] Admission: 04/27/2025 9:29 PM Primary Problem: Diabetic [...] from the original note were not included. [facility] Department of Surgery Division of Vascular [...] nursing staff. I have notified senior resident/attending educational diagnostician with any issues or concerns. Leidy Velasco [...] bony pathology, duration TBD - Will contact [facility] tomorrow to check on urine [...] PA-C Division of Infectious Diseases Available by [employer] History, assessment, and plan discussed with ID attending, Dr. Chintan Doran The following complex inpatient infectious disease services were performed today: Complex antimicrobial therapy counseling and treatment [1] Current Facility-Administered Medications Medication Dose Route Frequency Provider Last Rate Last Admin [Transfer Hold] acetaminophen (Tylenol) tablet 1,000 mg 1,000 mg Oral q6h PRN Moravian, k A, CIDER PRESS OPERATOR,DNP 1,000 mg at 04/30/25 0328 [Transfer Hold] [...] mcg/mL infusion Intravenous PRN Muzic, Og A, HR RECEPTIONIST 8 mcg at 05/01/25 0841 fentaNYL (Sublimaze) injection Intravenous PRN Muzic, Og A, HR RECEPTIONIST 25 mcg at 05/01/25 0826 lactated Ringer's infusion Intravenous Continuous PRN Muzic, Og A, HR RECEPTIONIST New Bag at 05/01/25 0728 midazolam (Versed) injection Intravenous PRN Muzic, Og A, HR RECEPTIONIST 1 mg at 05/01/25 0757 [2] Allergies [...] (H) 04/29/2025 I reviewed bg tracing in [facility] glucose timeline 05/01/25 ASSESSMENT Hospital Course: [...] continue to assess need -Follow-up plan: 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 For after hours please [...] AM EDT Operative Note Date: 05/01/25 Location: [facility] Name: Gonzalo Smalls, : 1975, Diagnoses: Pre-op Diagnosis Other chronic osteomyelitis of right foot (CMS/HCC) Post-op Diagnosis Other chronic osteomyelitis of right foot (CMS/HCC) Procedure(s): Right 5th toe ray amputation Attending Surgeon(s): * Mary Vicente - Primary First Crusher(s): * Paula Martinez MD - Resident - [...] the wound bed. This extended more than shelter to the heel laterally. The underlying skin [...] consulted and rec amputation vs transfer to [facility] for podiatry input about foot salvage : cannot transfer to [facility] given weight limit, pod team cannot [...] kg/m?? Labs and medications reviewed. 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 [facility] of [facility] Department of Surgery Division of [...] He is unable to be transferred to [facility] for Podiatry due to weight Edited [...] 2LNC at night, recurrent UTIswho presented to [facility] with nonhealing right foot wound. [...] kg/m?? Labs and medications reviewed. 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 For after hours please [...] Note Gonzalo Smalls 49 y.o. male CSN: [id number] Admission: 04/27/2025 9:29 PM Primary Problem: Diabetic foot ulcer Sour Bleaching Pleater reviewed chart and spoke with patient at bedside to complete this Initial Case Management Assessment. PCP: Malcolm Hayward APRN Emergency Contact: Extended Emergency Contact Information Primary Emergency Contact: Maggie Smalls Mobile Relation: Spouse Preferred language: Kyrgyz Assembler Flexible Leads needed? No Insurance: Primary Visit Coverage Payer Plan Sponsor Code Group Number Group Name THIAGO SOTOMAYOR[facility] [id number] [employer] Primary Visit Coverage Subscriber Subscriber ID Subscriber Name Subscriber SSN Subscriber Address [id number] GONZALO SMALLS [id number] [address] [id number] Secondary Visit Coverage Payer Plan Sponsor Code Group Number Group Name MEDICARE MEDICARE A & B Secondary Visit Coverage Subscriber Subscriber ID Subscriber Name Subscriber SSN Subscriber Address [id number] GONZALO SMALLS [phone] [address] [id number] Patient information: Primary Caregiver: Self Support System: Immediate family Daily Living Activities: Functional Status: Minimum assistance Living Arrangements: Spouse/Significant other, Children (daughter) Type of Residence: Private residence, Single Level (3 MIC[address]) [address] [address] Smoker in the Home?: No Current DME: [...] line dressing changes Living Will/Advance Directive/Power of Consulting Services Associate /Guardian: None Additional Comments: Patient admitted for [...] from the original note were not included. [facility] Department of Surgery Division of Vascular [...] night, recurrent UTIs who presented to the [facility] on 04/27/2025 with right foot wound. [...] file Social Connections: Unknown (04/24/2023) Received from [facility] Family and Community Support Help with [...] History Administered Date(s) Administered Moderna COVID-19 Vaccine (Hospitality Team Member) 12+ years 01/25/2021, 02/22/2021 Pneumococcal Conjugate PCV [...] a day. 09/05/21 Yes Provider, Historical HYDROcodone-acetaminophen ([place]) 10-325 MG tablet Take 1 tablet by [...] Yes Provider, Historical Insulin Pen Needle (Pen [place]) 31G X 5 MM misc USE TO [...] 6 hours as needed for pain. Under [place] law, monthly prescriptions (30 days) can be [...] 2LNC at night, recurrent UTIswho presented to [facility] with nonhealing right foot wound. [...] by mouth 3 times a day. HYDROcodone-acetaminophen ([place]) 10-325 MG tablet Take 1 tablet by [...] by mouth daily. Insulin Pen Needle (Pen [place]) 31G X 5 MM [facility] USE TO INJECT INSULIN 3 [...] [X] Family [ ] Friend [ ] Assembler Flexible Leads [X] Medical records HISTORY OF PRESENT ILLNESS: [...] and was treated in theemergency department at [facility] a few days ago where [...] in the ED 2-3 days ago at [facility]. I contacted OSH who report [...] a day. 09/05/21 Yes Provider, Historical HYDROcodone-acetaminophen ([place]) 10-325 MG tablet Take 1 tablet by [...] Yes Provider, Historical Insulin Pen Needle (Pen [place]) 31G X 5 MM misc USE TO [...] 6 hours as needed for pain. Under [place] law, monthly prescriptions (30 days) can be [...] Will follow-up blood and urine cultures from [facility] for further ID/susceptibilities, obtained 04/25 - Please obtain adult ID screening labs: Hep A IgG, Hep B sAb, Hep B sAg, and Hep B total core Ab - Plan of care and recommendations discussed with patient's primary provider Thank you for allowing us to participate in this patient's care. ID will follow. Janelle Phan PA-C Division of Infectious Diseases Available by Reach[employer] History, assessment, and plan discussed with ID [...] by mouth 3 times a day. HYDROcodone-acetaminophen ([place]) 10-325 MG tablet Take 1 tablet by [...] by mouth daily. Insulin Pen Needle (Pen [place]) 31G X 5 MM misc USE TO [...] back pain 04/22/2019 Hypertension 02/18/2019 Morbid obesity ([facility]/HCC) 12/24/2016 Procedures Past Medical History Patient has a past medical history of Acute kidney injury (05/19/2024), Alcohol abuse, in remission, Anxiety disorder, unspecified, Arthritis, Atrial fibrillation ([facility]), CAP (community acquired pneumonia) (05/19/2024), [...] in Care Family/Caregiver Present: Yes Family/Caregiver: Spouse Assembler Flexible Leads: Not Applicable Presentation Oxygen Therapy: None (Room [...] Needs assist Patient/Family Goals Return home at [facility]. Objective Pain Pt reports 7/10 [...] pain. Bed Mobility Exam: Rolling/Turning Level of [place]: Maximum assist (25% patient effort) Physical/Nonphysical Assist: Verbal Cues, Moderate cues Assistive Device: Bed rails, Other (TIME STUDY TECHNICIAN) Bed Mobility Exam: Scooting/Bridging Level of [place]: Maximum assist (25% patient's effort) (up in bed; Lester forward at EOB) Physical/Nonphysical Assist: Verbal Cues, Moderate cues Assistive Device: Bed rails Bed Mobility Exam: Supine to Sit Level of [place]: Maximum assist (25% patient's effort) Physical/Nonphysical Assist: Verbal Cues, Moderate cues, Set-up required, Additional assist utilized for safety Assistive Device: Other (TIME STUDY TECHNICIAN) Bed Mobility Exam: Sit to Supine Level of [place]: Maximum assist (25% patient's effort) Physical/Nonphysical Assist: [...] climbing 3-5 steps with a railing?: Unable [facility] 6-Clicks Mobility Assessment Total : 8 [...] remission, Anxiety disorder, unspecified, Arthritis, Atrial fibrillation ([facility]), CAP (community acquired pneumonia) (05/19/2024), [...] CARE Subjective Pt reports Visitors Present Spouse Assembler Flexible Leads (if applicable) PRESENTATION Oxygen Room Air Telemetry [...] help from Spouse Level of Mobility Mobility [place] History of Falls ADL Performance ADL Performance: [...] Mobility Bed Mobility Exam: Rolling/Turning Level of [place]: Maximum assist (25% patient effort) Physical/Nonphysical Assist: Verbal Cues, Moderate cues Assistive Device: Bed rails, Other (TIME STUDY TECHNICIAN) Bed Mobility Exam: Scooting/Bridging Level of [place]: Maximum assist (25% patient's effort) (up in bed; Lester forward at EOB) Physical/Nonphysical Assist: Verbal Cues, Moderate cues Assistive Device: Bed rails Bed Mobility Exam: Supine to Sit Level of [place]: Maximum assist (25% patient's effort) Physical/Nonphysical Assist: Verbal Cues, Moderate cues, Set-up required, Additional assist utilized for safety Assistive Device: Other (TIME STUDY TECHNICIAN) Bed Mobility Exam: Sit to Supine Level of [place]: Maximum assist (25% patient's effort) Physical/Nonphysical Assist: [...] an d discharge recommendations. STANDARDIZED ASSESSMENTS [facility] 6-Click Daily Activities Help from Other: Don/Doff Regular Lower Body Clothings: A lot Help From Other: Bathing: A lot Help From Other: Toileting: A lot Help From Other: Don/Doff Upper Body Clothings: None Help From Other: Grooming: None Help From Other: Eating Meals: None [facility] 6 Click - Daily Activities Score: [...] Lunch: leftovers/baked oatmeal Dinner: take out/cooking - [facility], cracker barrel Snacks: peanut butter crackers, cheese [...] remission, Anxiety disorder, unspecified, Arthritis, Atrial fibrillation ([facility]/HCC), CAP (community acquired pneumonia) (05/19/2024), Cellulitis (05/19/2024), [...] continue to assess need -Follow-up plan: 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 For after hours please [...] capsule 150 mg 150 mg Oral Daily MoravianSy APRN, DNP 150 mgat 04/28/25 0848 Current [...] by mouth 3 times a day. HYDROcodone-acetaminophen ([place]) 10-325 MG tablet Take 1 tablet by [...] by mouth daily. Insulin Pen Needle (Pen [place]) 31G X 5 MM [facility] USE TO INJECT INSULIN 3 [...] 04/28/2025 6:09 AM EDTAssociated Order(s): Consult to [facility] Images from the original note were not included. Consult to [facility] Consult performed by: Sy De [...] 6 hours as needed for pain. Under [place] law, monthly prescriptions (30 days) can be [...] times a day. 09/05/21 Provider, Historical HYDROcodone-acetaminophen ([place]) 10-325 MG tablet Take 1 tablet by mouth every 6 hours as needed. Provider, Historical insulin NPH-insulin regular (NovoLIN 70/30 FlexPen) (70-30) 100 UNIT/ML injection pen Inject 90 Units under the skin 3 times a day before meals. FURTHER REFILLS WILL BE PROVIDED UPON ATTENDANCE OF NEXT OFFICE VISIT 03/29/25 02/22/25 Divine Archer APRN Insulin Pen Needle (Pen [place]) 31G X 5 MM misc USE TO INJECT INSULIN 3 TIMES PER DAY 02/27/25 Diivne Archer APRN LORazepam (Ativan) 1 MG tablet [...] Value Units Date/Time Blood Culture (Aerobic/Anaerobet Set) [[id number]] Collected: 04/27/252215 Order Status: Completed Specimen: Blood, Venous Updated: 04/28/25111 Culture Culture in lab Blood Culture (Aerobic/Anaerobet Set) [[id number]] Collected: 04/27/252215 Order Status: Completed Specimen: Blood, [...] warmth, chills, vomiting. 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 where he was admitted at [facility]. Patient denies any shortness of breath, [...] records from his previous hospital visit at [facility] which showed he was being [...] Ordered Status Ordering Provider 04/28/25541 Consult to [facility] Once Specialty: Internal Medicine Provider: [...] of Pseudomonas coverage. I spoke with the package clerk to tryto get records from [facility] to see why he was [...] Description 08/03/2025 2:00 PM EST Office Visit [facility] [address] [place] [address] Mary Vicente MD [address] [place] [address] Scheduled Orders Name Type Priority Associated Diagnoses [...] - 99 mg/dL 05/18/2025 8:11 AM EST [facility] Comment:Accuracy of a glucos e result [...] for testing. Comment 05/18/2025 8:11 AM EST [facility] Dining Room Attendant ID Char Hinojosa 05/18/2025 8:11 AM EST [facility] Device ID [id number] 05/18/2025 8:11 AM EST [facility] Specimen Type POC Capillary 05/18/2025 8:11 AM EST [facility] Blood Capillary blood specimen / Unknown 05/18/2025 8:09 AM EST 05/18/2025 8:11 AM EST Umar R Jay Jay DO LAB POINT OF CARE TE ST DOCKED DEVICE UNSOLICITED RESULTS Final Result [facility] [address] [place] [address] * (ABNORMAL) POCT glucose meter (05/17/2025 7:54 PM EST) POCT Glucose 216(H) 74 - 99 mg/dL 05/17/2025 7:55 PM EST [facility] Comment:Accuracy of a glucos e result [...] 05/17/2025 7:55 PM EST [facility] Dining Room Attendant ID Ron Lal 7:55 PM EST [facility] Device ID [id number] 05/17/2025 7:55 PM EST [facility] Specimen Type POC Capillary 05/17/2025 7:55 PM EST [facility] Blood Capillary blood specimen / Unknown 05/17/2025 7:54 PM EST 05/17/2025 7:55 PM EST Wily Goyal DO LAB POINT OF CARE TE ST DOCKED DEVICE UNSOLICITED RESULTS Final Result Performing Organization Address City[facility] Co de Phone Number [facility] [address] [place] [address] * (ABNORMAL) POCT glucose meter (05/17/2025 5:13 PM EST) [facility] POCT Glucose 186(H) 74 - 99 mg/dL [...] 05/17/2025 5:14 PM EST [facility] Dining Room Attendant ID Char Hinojosa 05/17/2025 5:14 PM EST [facility] Device ID [id number] 05/17/2025 5:14 PM EST [facility] Specimen Type POC Capillary 05/17/2025 5:14 PM EST [facility] Blood Capillary blood specimen / Unknown 05/17/2025 5:13 PM EST 05/17/2025 5:14 PM EST Kazar R Jay Jay DO LAB POINT OF CARE TE ST DOCKED DEVICE UNSOLICITED RESULTS Final Result Performing Organization Address City/[facility]/ZIP Co de Phone Number [facility] [address] [place] [address] * (ABNORMAL) POCT glucose meter (05/17/2025 1:01 PM EST) Pathologist [facility] POCT Glucose 191(H) 74 - 99 mg/dL 05/31/2025 3:12 PM EST [facility] Comment:Accuracy of a glucos e result [...] for testing. Comment 05/31/2025 3:12 PM EST [facility] Dining Room Attendant ID Char Hinojosa 05/31/2025 3:12 PM EST [facility] Device ID [id number] 05/31/2025 3:12 PM EST [facility] Specimen Type POC Capillary 05/31/2025 3:12 PM EST [facility] Blood Capillary blood specimen / Unknown 05/17/2025 1:01 PM EST 05/31/2025 3:12 PM EST us Umar R Jay Jay DO LAB POINT OF CARE TE ST DOCKED DEVICE UNSOLICITED RESULTS Final Result [facility] [address] [place] [address] * ECHO, ADULT TRANSTHORACIC COMPLETE W/ CONTRAST (05/17/2025 9:51 AM EST) Pathologist [facility] BSA 3.30 m2 HANK ISCV Height 182.9 [...] Ao Diam 37 [address] [facility]ANK I[address]V PA CT(ACCEL) 24.6 mmHg HANK ISCV LV mean PG [...] is no recent study available for direct [id number] comparison. Left Ventricle The left ventricle is [...] is no recent study available for direct [id number] comparison. Wily Goyal DO CV ECHO PROCEDURES Final Result * (ABNORMAL) POCT glucose meter (05/17/2025 8:52 AM EST) POCT Glucose 225(H) 74 - 99 mg/dL 05/31/2025 3:12 PM EST [facility] Comment:Accuracy of a glucos e result [...] testing. Comment 05/31/2025 3:12 PM EST [facility] Dining Room Attendant ID Char Hinojosa 05/31/2025 3:12 PM EST [facility] Device ID [id number] 05/31/2025 3:12 PM EST [facility] Specimen Type POC Capillary 05/31/2025 3:12 PM EST [facility] Blood Capillary blood specimen / Unknown 05/17/2025 8:52 AM EST 05/31/2025 3:12 PM EST [facility] LAB POINT OF CARE TE ST DOCKED DEVICE UNSOLICITED RESULTS Final Result [facility] [address] [place] [address] * (ABNORMAL) POCT glucose meter (05/16/2025 9:28 [...] 05/31/2025 3:12 PM EST [facility] Dining Room Attendant ID Jamal Soriano 3:12 PM EST [facility] Device ID [id number] 05/31/2025 3:12 PM EST [facility] Specimen Type POC Capillary 05/31/2025 3:12 PM EST [facility] Blood Capillary blood specimen / Unknown 05/16/2025 9:28 PM EST 05/31/2025 3:12 PM EST Wily Goyal DO LAB POINT OF CARE TE ST DOCKED DEVICE UNSOLICITED RESULTS Final Result [facility] [address] [place] [address] * (ABNORMAL) POCT glucose meter (05/16/2025 5:37 PM EST) [facility] Signature POCT Glucose 283(H) 74 - 99 [...] 05/16/2025 5:39 PM EST [facility] Dining Room Attendant ID Char Hinojosa 05/16/2025 5:39 PM EST [facility] Device ID [id number] 05/16/2025 5:39 PM EST [facility] Specimen Type POC Capillary 05/16/2025 5:39 PM EST [facility] Blood Capillary blood specimen / Unknown 05/16/2025 5:37 PM EST 05/16/2025 5:39 PM EST Umar R Jay Jay DO LAB POINT OF CARE TE ST DOCKED DEVICE UNSOLICITED RESULTS Final Result Performing Organization Address City/[facility] Co de Phone Number [facility] [address] [place] [address] * ECG Adult (05/16/2025 3:33 PM EST) EKG DIAGNOSIS CLASS Abnormal MUSE ECG Ventricular Rate 58 BPM MUSE ECG Atrial Rate [address] Interval 184 ms MUSE ECG QRSD Interval 158 ms MUSE ECG QT Interval 496 ms MUSE ECG QTC Interval 486 ms MUSE ECG P Reserve 30 degrees MUSE ECG R Reserve -35 degrees MUSE ECG T Wave Reserve -5 degrees MUSE ECG Diagnosis Sinus bradycardia [...] 3:33 PM EST 05/18/2025 12:15 AM EST [facility] [place] [facility] ECG ORDERABLES Final Result Performing Organization Address [facility] de Phone Number MUSE ECG * (ABNORMAL) POCT glucose meter (05/16/2025 12:06 PM EST) POCT Glucose 161(H) 74 - 99 mg/dL 05/16/2025 12:07 PM EST [facility] Comment:Accuracy of a glucos e result [...] 05/16/2025 12:07 PM EST [facility] Dining Room Attendant ID Char Hinojosa 05/16/2025 12:07 PM EST [facility] Device ID [id number] 05/16/2025 12:07 PM EST [facility] Specimen Type POC Capillary 05/16/2025 12:07 PM EST [facility] Blood Capillary blood specimen / Unknown 05/16/2025 12:06 PM EST 05/16/2025 12:07 PM EST us Selin Lee MD LAB POINT OF CARE TE ST DOCKED DEVICE UNSOLICITED RESULTS Final Result Performing Organization Address City/[facility] Co de Phone Number [facility] [address] [place] [address] * (ABNORMAL) POCT glucose meter (05/16/2025 8:17 AM EST) POCT Glucose 168(H) 74 - 99 mg/dL 05/16/2025 8:21 AM EST [facility] Comment:Accuracy of a glucos e result [...] for testing. Comment 05/16/2025 8:21 AM EST [facility] Dining Room Attendant ID Char Hinojosa 05/16/2025 8:21 AM EST [facility] Device ID [id number] 05/16/2025 8:21 AM EST [facility] Specimen Type POC Capillary 05/16/2025 8:21 AM EST [facility] Blood Capillary blood specimen / Unknown 05/16/2025 8:17 AM EST 05/16/2025 8:21 AM EST Selin Lee MD LAB POINT OF CARE TE ST DOCKED DEVICE UNSOLICITED RESULTS Final Result Performing Organization Address City/[facility]/ZIP Co de Phone Number [facility] [address] [place] [address] * (ABNORMAL) CBC and Differential (05/16/2025 4:08 AM EST) WBC Count 7.97 3.70 - 10.30 10*3/uL LAB HEMATOLOGY METHOD 05/16/2025 4:26 AM EST [facility] RBC Count 4.27(L) 4.60 - 6.10 10*6/uL LAB HEMATOLOGY METHOD 05/16/2025 4:26 AM [facility] HGB 9.5(L) 13.7 - 17.5 g/dL LAB HEMATOLOGY METHOD 05/16/2025 4:26 AM [facility] HCT 31.6(L) 40.0 - 51.0 % LAB HEMATOLOGY METHOD 05/16/2025 4:26 AM [facility] Platelet Count 264 155 - 369 10*3/uL LAB HEMATOLOGY METHOD 05/16/2025 4:26 AM [facility] MCV 74(L) 79 - 98 fL LAB HEMATOLOGY METHOD 05/16/2025 4:26 AM [facility] MCH 22.2(L) 26.0 - 32.0 pg LAB HEMATOLOGY METHOD 05/16/2025 4:26 AM [facility] MCHC 30.1(L) 30.7 - 35.5 g/dL LAB HEMATOLOGY METHOD 05/16/2025 4:26 AM [facility] RDW 17.9(H) 11.5 - 14.5 % LAB HEMATOLOGY METHOD 05/16/2025 4:26 AM [facility] MPV 9.2 8.8 - 12.5 fL LAB HEMATOLOGY METHOD 05/16/2025 4:26 AM [facility] nRBC 0.0 <=0.0 per 100 WBCs LAB HEMATOLOGY METHOD 05/16/2025 4:26 AM [facility] Differential Type Automated LAB HEMATOLOGY METHOD 05/16/2025 4:26 AM [facility] Neutrophils % 67 % LAB HEMATOLOGY METHOD 05/16/2025 4:26 AM [facility] Lymphocytes % 16 % LAB HEMATOLOGY METHOD 05/16/2025 4:26 AM [facility] Monocytes % 12 % LAB HEMATOLOGY METHOD 05/16/2025 4:26 AM [facility] Eosinophils % 3 % LAB HEMATOLOGY METHOD 05/16/2025 4:26 AM [facility] Basophils % 1 % LAB HEMATOLOGY METHOD 05/16/2025 4:26 AM [facility] Immature Granulocytes % 1 % LAB HEMATOLOGY METHOD 05/16/2025 4:26 AM [facility] Neutrophils Absolute 5.39 1.60 - 6.10 10*3/uL LAB HEMATOLOGY METHOD 05/16/2025 4:26 AM EST [facility] Lymphocytes Absolute 1.30 1.20 - 3.90 10*3/uL LAB HEMATOLOGY METHOD 05/16/2025 4:26 AM EST [facility] Monocytes Absolute 0.93(H) 0.30 - 0.90 10*3/uL LAB HEMATOLOGY METHOD 05/16/2025 4:26 AM EST [facility] Eosinophils Absolute 0.26 0.00 - 0.50 10*3/uL LAB HEMATOLOGY METHOD 05/16/2025 4:26 AM EST [facility] Basophils Absolute 0.05 0.00 - 0.10 10*3/uL LAB HEMATOLOGY METHOD 05/16/2025 4:26 AM EST [facility] Immature Granulocytes Absolute 0.04 0.00 - 0.06 10*3/uL LAB HEMATOLOGY METHOD 05/16/2025 4:26 AM EST [facility] Blood Venous blood specimen / Unknown Venipuncture / Unknown 05/16/2025 4:08 AM EST 05/16/2025 4:17 AM EST Narrative [facility] - 05/16/2025 4:26 AM EST Therapeutic decision making should be based on absolute values, rather than percentages. us Selin Lee MD LAB BLOOD ORDERABLES Final Re sult Performing Organization Address City/[facility]/ZIP Co de Phone Number [facility] [address] [place] [address] * (ABNORMAL) Magnesium, Plasma (05/16/2025 4:08 AM EST) Magnesium, Plasma 1.8(L) 1.9 - 2.4 mg/dL 05/16/2025 4:48 AM EST [facility] Blood Venous blood specimen / Unknown Venipuncture / Unknown 05/16/2025 4:08 AM EST 05/16/2025 4:16 AM EST us Selin Lee MD LAB BLOOD ORDERABLES Final Re sult Performing Organization Address City/[facility]/ZIP Co de Phone Number [facility] [address] [place] [address] * (ABNORMAL) Basic Metabolic Panel, Plasma (05/16/2025 4:08 AM EST) Glucose, Plasma 168(H) 74 - 99 mg/dL 05/16/2025 4:48 AM EST [facility] BUN, Plasma 19 7 - 21 mg/dL 05/16/2025 4:48 AM EST [facility] Creatinine, Plasma 0.86 0.70 - 1.20 mg/dL 05/16/2025 4:48 AM EST [facility] BUN/Creatinine Ratio 22 05/16/2025 4:48 AM EST [facility] Sodium, Plasma 131(L) 136 - 145 mmol/L 05/16/2025 4:48 AM EST [facility] Potassium, Plasma 3.6 3.6 - 4.9 mmol/L 05/16/2025 4:48 AM EST [facility] Chloride, Plasma 88(L) 97 - 107 mmol/L 05/16/2025 4:48 AM EST [facility] CO2, Plasma 34(H) 22 - 29 mmol/L 05/16/2025 4:48 AM EST [facility] Anion Gap 9 6 - 16 mmol/L 05/16/2025 4:48 AM EST [facility] Total Calcium, Plasma 9.3 8.9 - 10.2 mg/dL 05/16/2025 4:48 AM EST [facility] eGFRcr 107.5 mL/min/1.7 3m*2 05/16/2025 4:48 AM EST [facility] Comment:Reported eGFRcr in m L/min/1.73m2 is based the CKD-EPI 2020 equation that does not use a race coefficient. Blood Venous blood specimen / Unknown Venipuncture / Unknown 05/16/2025 4:08 AM EST 05/16/2025 4:16 AM EST us Selin Lee MD LAB BLOOD ORDERABLES Final Re sult [facility] [address] [place] [address] * Phosphorus, Plasma (05/16/2025 4:08 AM EST) [facility] Phosphorus, Plasma 3.7 2.5 - 4.5 mg/dL 05/16/2025 4:48 AM EST [facility] Blood Venous blood specimen / Unknown Venipuncture / Unknown 05/16/2025 4:08 AM EST 05/16/2025 4:16 AM EST us Selin Lee MD LAB BLOOD ORDERABLES Final Re sult [facility] [address] [place] [address] * (ABNORMAL) POCT glucose meter (05/15/2025 8:00 PM EST) [facility] POCT Glucose 190(H) 74 - 99 mg/dL [...] 05/15/2025 8:02 PM EST [facility] Dining Room Attendant ID Timo Campbell 8:02 PM EST [facility] Device ID [id number] 05/15/2025 8:02 PM EST [facility] Specimen Type POC Capillary 05/15/2025 8:02 PM EST [facility] Blood Capillary blood specimen / Unknown 05/15/2025 8:00 PM EST 05/15/2025 8:02 PM EST us Selin Lee MD LAB POINT OF CARE TE ST DOCKED DEVICE UNSOLICITED RESULTS Final Result Performing Organization Address City/[facility]/ZIP Co de Phone Number [facility] [address] [place] [address] * (ABNORMAL) POCT glucose meter (05/15/2025 4:52 PM EST) [facility] POCT Glucose 270(H) 74 - 99 mg/dL 05/15/2025 4:53 PM EST [facility] Comment:Accuracy of a glucos e result [...] Comment 05/15/2025 4:53 PM EST [facility] Dining Room Attendant ID Char Hinojosa 05/15/2025 4:53 PM EST [facility] Device ID [id number] 05/15/2025 4:53 PM EST [facility] Specimen Type POC Capillary 05/15/2025 4:53 PM EST [facility] Blood Capillary blood specimen / Unknown 05/15/2025 4:52 PM EST 05/15/2025 4:53 PM EST Selin Lee MD LAB POINT OF CARE TE ST DOCKED DEVICE UNSOLICITED RESULTS Final Result Performing Organization Address City/State/[facility] Co de Phone Number [facility] [address] [place] [address] * (ABNORMAL) POCT glucose meter (05/15/2025 12:46 PM EST) [facility] Signature POCT Glucose 233(H) 74 - 99 [...] Comment 05/15/2025 12:48 PM EST [facility] Dining Room Attendant ID Santy Garcia 05/15/2025 12:48 PM EST [facility] Device ID [id number] 05/15/2025 12:48 PM EST [facility] Specimen Type POC Capillary 05/15/2025 12:48 PM EST [facility] Blood Capillary blood specimen / Unknown 05/15/2025 12:46 PM EST 05/15/2025 12:48 PM EST Selin Lee MD LAB POINT OF CARE TE ST DOCKED DEVICE UNSOLICITED RESULTS Final Result Performing Organization Address City/[facility] Co de Phone Number [facility] [address] [place] [address] * (ABNORMAL) POCT glucose meter (05/15/2025 11:31 [...] for testing. Comment 05/15/2025 11:33 AM EST [facility] Dining Room Attendant ID Char Hinojosa 05/15/2025 11:33 AM EST [facility] Device ID [id number] 05/15/2025 11:33 AM EST [facility] Specimen Type POC Capillary 05/15/2025 11:33 AM EST [facility] Blood Capillary blood specimen / Unknown 05/15/2025 11:31 AM EST 05/15/2025 11:33 AM EST us Selin Lee MD LAB POINT OF CARE TE ST DOCKED DEVICE UNSOLICITED RESULTS Final Result Performing Organization Address City/[facility] Co de Phone Number [facility] [address] [place] [address] * (ABNORMAL) POCT glucose meter (05/15/2025 8:12 [...] for testing. Comment 05/15/2025 8:14 AM EST [facility] Dining Room Attendant ID Char Hinojosa 05/15/2025 8:14 AM EST [facility] Device ID [id number] 05/15/2025 8:14 AM EST [facility] Specimen Type POC Capillary 05/15/2025 8:14 AM EST [facility] Blood Capillary blood specimen / Unknown 05/15/2025 8:12 AM EST 05/15/2025 8:14 AM EST Selin Lee MD LAB POINT OF CARE TE ST DOCKED DEVICE UNSOLICITED RESULTS Final Result [facility] [address] [place] [address] * (ABNORMAL) CBC and Differential (05/15/2025 2:24 AM EST) WBC Count 8.81 3.70 - 10.30 10*3/uL LAB HEMATOLOGY METHOD 05/15/2025 2:41 AM EST [facility] RBC Count 4.49(L) 4.60 - 6.10 10*6/uL LAB HEMATOLOGY METHOD 05/15/2025 2:41 AM EST [facility] HGB 9.9(L) 13.7 - 17.5 g/dL LAB HEMATOLOGY METHOD 05/15/2025 2:41 AM EST [facility] HCT 33.3(L) 40.0 - 51.0 % LAB HEMATOLOGY METHOD 05/15/2025 2:41 AM EST [facility] Platelet Count 286 155 - 369 10*3/uL LAB HEMATOLOGY METHOD 05/15/2025 2:41 AM EST [facility] MCV 74(L) 79 - 98 fL LAB HEMATOLOGY METHOD 05/15/2025 2:41 AM EST [facility] MCH 22.0(L) 26.0 - 32.0 pg LAB HEMATOLOGY METHOD 05/15/2025 2:41 AM EST [facility] MCHC 29.7(L) 30.7 - 35.5 g/dL LAB HEMATOLOGY METHOD 05/15/2025 2:41 AM EST [facility] RDW 17.8(H) 11.5 - 14.5 % LAB HEMATOLOGY METHOD 05/15/2025 2:41 AM [facility] MPV 9.4 8.8 - 12.5 fL LAB HEMATOLOGY METHOD 05/15/2025 2:41 AM [facility] nRBC 0.0 <=0.0 per 100 WBCs LAB HEMATOLOGY METHOD 05/15/2025 2:41 AM [facility] Differential Type Automated LAB HEMATOLOGY METHOD 05/15/2025 2:41 AM [facility] Neutrophils % 71 % LAB HEMATOLOGY METHOD 05/15/2025 2:41 AM [facility] Lymphocytes % 14 % LAB HEMATOLOGY METHOD 05/15/2025 2:41 AM [facility] Monocytes % 11 % LAB HEMATOLOGY METHOD 05/15/2025 2:41 AM [facility] Eosinophils % 3 % LAB HEMATOLOGY METHOD 05/15/2025 2:41 AM [facility] Basophils % 1 % LAB HEMATOLOGY METHOD 05/15/2025 2:41 AM [facility] Immature Granulocytes % 0 % LAB HEMATOLOGY METHOD 05/15/2025 2:41 AM [facility] Neutrophils Absolute 6.25(H) 1.60 - 6.10 10*3/uL LAB HEMATOLOGY METHOD 05/15/2025 2:41 AM [facility] Lymphocytes Absolute 1.27 1.20 - 3.90 10*3/uL LAB HEMATOLOGY METHOD 05/15/2025 2:41 AM [facility] Monocytes Absolute 0.95(H) 0.30 - 0.90 10*3/uL LAB HEMATOLOGY METHOD 05/15/2025 2:41 AM [facility] Eosinophils Absolute 0.27 0.00 - 0.50 10*3/uL LAB HEMATOLOGY METHOD 05/15/2025 2:41 AM [facility] Basophils Absolute 0.04 0.00 - 0.10 10*3/uL LAB HEMATOLOGY METHOD 05/15/2025 2:41 AM [facility] Immature Granulocytes Absolute 0.03 0.00 - 0.06 10*3/uL LAB HEMATOLOGY METHOD 05/15/2025 2:41 AM [facility] Blood Venous blood specimen / Unknown Venipuncture / Unknown 05/15/2025 2:24 AM EST 05/15/2025 2:33 AM EST Narrative [facility] - 05/15/2025 2:41 AM EST Therapeutic decision making should be based on absolute values, rather than percentages. us Selin Lee MD LAB BLOOD ORDERABLES Final Re sult Performing Organization Address [facility] Co de Phone Number [facility] [address] [place] [address] * (ABNORMAL) Magnesium, Plasma (05/15/2025 2:24 AM EST) Magnesium, Plasma 1.8(L) 1.9 - 2.4 mg/dL 05/15/2025 3:03 AM EST [facility] Blood Venous blood specimen / Unknown Venipuncture / Unknown 05/15/2025 2:24 AM EST 05/15/2025 2:32 AM EST us Selin Lee MD LAB BLOOD ORDERABLES Final Re sult Performing Organization Address [facility] Co de Phone Number [facility] [address] [place] [address] * (ABNORMAL) Basic Metabolic Panel, Plasma (05/15/2025 2:24 AM EST) Glucose, Plasma 162(H) 74 - 99 mg/dL 05/15/2025 3:03 AM EST [facility] BUN, Plasma 15 7 - 21 mg/dL 05/15/2025 3:03 AM EST [facility] Creatinine, Plasma 0.91 0.70 - 1.20 mg/dL 05/15/2025 3:03 AM EST [facility] BUN/Creatinine Ratio 16 05/15/2025 3:03 AM EST [facility] Sodium, Plasma 133(L) 136 - 145 mmol/L 05/15/2025 3:03 AM EST [facility] Potassium, Plasma 3.3(L) 3.6 - 4.9 mmol/L 05/15/2025 3:03 AM EST [facility] Chloride, Plasma 87(L) 97 - 107 mmol/L 05/15/2025 3:03 AM EST [facility] CO2, Plasma 37(H) 22 - 29 mmol/L 05/15/2025 3:03 AM EST [facility] Anion Gap 9 6 - 16 mmol/L 05/15/2025 3:03 AM EST [facility] Total Calcium, Plasma 9.2 8.9 - 10.2 mg/dL 05/15/2025 3:03 AM EST [facility] eGFRcr 104.6 mL/min/1.7 3m*2 05/15/2025 3:03 AM EST [facility] Comment:Reported eGFRcr in m L/min/1.73m2 is based the CKD-EPI 2020 equation that does not use a race coefficient. Blood Venous blood specimen / Unknown Venipuncture / Unknown 05/15/2025 2:24 AM EST 05/15/2025 2:32 AM EST us Selin Lee MD LAB BLOOD ORDERABLES Final Re sult Performing Organization Address City/[facility]/ZIP Co de Phone Number [facility] [address] [place] [address] * Phosphorus, Plasma (05/15/2025 2:24 AM EST) Phosphorus, Plasma 3.7 2.5 - 4.5 mg/dL 05/15/2025 3:03 AM EST [facility] Blood Venous blood specimen / Unknown Venipuncture / Unknown 05/15/2025 2:24 AM EST 05/15/2025 2:32 AM EST us Selin Lee MD LAB BLOOD ORDERABLES Final Re sult [facility] [address] [place] [address] * (ABNORMAL) POCT glucose meter (05/14/2025 8:09 PM EST) POCT Glucose 194(H) 74 - 99 mg/dL 05/14/2025 8:11 PM EST [facility] Comment:Accuracy of a glucos e result [...] 05/14/2025 8:11 PM EST [facility] Dining Room Attendant ID Stella Coleman 05/14/20 8:11 PM EST [facility] Device ID [id number] 05/14/2025 8:11 PM EST [facility] Specimen Type POC Capillary 05/14/2025 8:11 PM EST [facility] Blood Capillary blood specimen / Unknown 05/14/2025 8:09 PM EST 05/14/2025 8:11 PM EST us Selin Lee MD LAB POINT OF CARE TE ST DOCKED DEVICE UNSOLICITED RESULTS Final Result Performing Organization Address City/[facility]/ZIP Co de Phone Number [facility] [address] [place] [address] * (ABNORMAL) POCT glucose meter (05/14/2025 5:10 PM EST) [facility] POCT Glucose 320(H) 74 - 99 mg/dL [...] 05/14/2025 5:13 PM EST [facility] Dining Room Attendant ID Dunia Montgomery 05/14/2025 5:13 PM EST [facility] Device ID [id number] 05/14/2025 5:13 PM EST [facility] Specimen Type POC Capillary 05/14/2025 5:13 PM EST [facility] Blood Capillary blood specimen / Unknown 05/14/2025 5:10 PM EST 05/14/2025 5:13 PM EST us Selin Lee MD LAB POINT OF CARE TE ST DOCKED DEVICE UNSOLICITED RESULTS Final Result [facility] [address] [place] [address] * (ABNORMAL) POCT glucose meter (05/14/2025 12:15 PM EST) [facility] POCT Glucose 260(H) 74 - 99 mg/dL [...] 05/14/2025 4:51 PM EST [facility] Dining Room Attendant ID Manny Montgomerya 05/14/2025 4:51 PM EST [facility] Device ID [id number] 05/14/2025 4:51 PM EST [facility] Specimen Type POC Capillary 05/14/2025 4:51 PM EST [facility] Blood Capillary blood specimen / Unknown 05/14/2025 12:15 PM EST 05/14/2025 4:51 PM EST Selin Lee MD LAB POINT OF CARE TE ST DOCKED DEVICE UNSOLICITED RESULTS Final Result Performing Organization Address [facility] de Phone Number [facility] [address] [place] [address] * (ABNORMAL) POCT glucose meter (05/14/2025 8:30 AM EST) [facility] POCT Glucose 321(H) 74 - 99 mg/dL [...] 05/14/2025 8:33 AM EST [facility] Dining Room Attendant ID Dunia Montgomery 05/14/2025 8:33 AM EST [facility] Device ID [id number] 05/14/2025 8:33 AM EST [facility] Specimen Type POC Capillary 05/14/2025 8:33 AM EST [facility] Blood Capillary blood specimen / Unknown 05/14/2025 8:30 AM EST 05/14/2025 8:33 AM EST Selin Lee MD LAB POINT OF CARE TE ST DOCKED DEVICE UNSOLICITED RESULTS Final Result Performing Organization Address City/[facility] Co de Phone Number [facility] [address] [place] [address] * (ABNORMAL) POCT glucose meter (05/14/2025 4:49 AM EST) Pathologist [facility] POCT Glucose 306(H) 74 - 99 mg/dL 05/31/2025 3:12 PM EST [facility] Comment:Accuracy of a glucos e result [...] for testing. Comment 05/31/2025 3:12 PM EST [facility] Dining Room Attendant ID Asiya Nix [id number] 3:12 PM EST [facility] Device ID [id number] 05/31/2025 3:12 PM EST [facility] Specimen Type POC Capillary 05/31/2025 3:12 PM EST [facility] Blood Capillary blood specimen / Unknown 05/14/2025 4:49 AM EST 05/31/2025 3:12 PM EST us Wily Goyal DO LAB POINT OF CARE TE ST DOCKED DEVICE UNSOLICITED RESULTS Final Result Performing Organization Address City/[facility] Co de Phone Number [facility] [address] [place] [address] * (ABNORMAL) CBC and Differential (05/14/2025 1:45 AM EDT) WBC Count 7.88 3.70 - 10.30 10*3/uL LAB HEMATOLOGY METHOD 05/14/2025 2:47 AM EST [facility] RBC Count 4.25(L) 4.60 - 6.10 10*6/uL LAB HEMATOLOGY METHOD 05/14/2025 2:47 AM EST [facility] HGB 9.7(L) 13.7 - 17.5 g/dL LAB HEMATOLOGY METHOD 05/14/2025 2:47 AM EST [facility] HCT 31.7(L) 40.0 - 51.0 % LAB HEMATOLOGY METHOD 05/14/2025 2:47 AM EST [facility] Platelet Count 273 155 - 369 10*3/uL LAB HEMATOLOGY METHOD 05/14/2025 2:47 AM EST [facility] MCV 75(L) 79 - 98 fL LAB HEMATOLOGY METHOD 05/14/2025 2:47 AM EST [facility] MCH 22.8(L) 26.0 - 32.0 pg LAB HEMATOLOGY METHOD 05/14/2025 2:47 AM EST [facility] MCHC 30.6(L) 30.7 - 35.5 g/dL LAB HEMATOLOGY METHOD 05/14/2025 2:47 AM EST [facility] RDW 17.9(H) 11.5 - 14.5 % LAB HEMATOLOGY METHOD 05/14/2025 2:47 AM EST [facility] MPV 9.6 8.8 - 12.5 fL LAB HEMATOLOGY METHOD 05/14/2025 2:47 AM [facility] nRBC 0.0 <=0.0 per 100 WBCs LAB HEMATOLOGY METHOD 05/14/2025 2:47 AM EST [facility] Differential Type Automated LAB HEMATOLOGY METHOD 05/14/2025 2:47 AM [facility] Neutrophils % 66 % LAB HEMATOLOGY METHOD 05/14/2025 2:47 AM [facility] Lymphocytes % 18 % LAB HEMATOLOGY METHOD 05/14/2025 2:47 AM EST [facility] Monocytes % 11 % LAB HEMATOLOGY METHOD 05/14/2025 2:47 AM EST [facility] Eosinophils % 4 % LAB HEMATOLOGY METHOD 05/14/2025 2:47 AM [facility] Basophils % 1 % LAB HEMATOLOGY METHOD 05/14/2025 2:47 AM EST [facility] Immature Granulocytes % 0 % LAB HEMATOLOGY METHOD 05/14/2025 2:47 AM EST [facility] Neutrophils Absolute 5.20 1.60 - 6.10 10*3/uL LAB HEMATOLOGY METHOD 05/14/2025 2:47 AM EST [facility] Lymphocytes Absolute 1.44 1.20 - 3.90 10*3/uL LAB HEMATOLOGY METHOD 05/14/2025 2:47 AM EST [facility] Monocytes Absolute 0.85 0.30 - 0.90 10*3/uL LAB HEMATOLOGY METHOD 05/14/2025 2:47 AM EST [facility] Eosinophils Absolute 0.30 0.00 - 0.50 10*3/uL LAB HEMATOLOGY METHOD 05/14/2025 2:47 AM EST [facility] Basophils Absolute 0.06 0.00 - 0.10 10*3/uL LAB HEMATOLOGY METHOD 05/14/2025 2:47 AM EST [facility] Immature Granulocytes Absolute 0.03 0.00 - 0.06 10*3/uL LAB HEMATOLOGY METHOD 05/14/2025 2:47 AM EST [facility] Blood Venous blood specimen / Unknown Venipuncture / Unknown 05/14/2025 1:45 AM EDT 05/14/2025 2:24 AM EST Narrative [facility] - 05/14/2025 2:47 AM EST Therapeutic decision making should be based on absolute values, rather than percentages. us Selin Lee MD LAB BLOOD ORDERABLES Final Re sult [facility] [address] [place] [address] * (ABNORMAL) Magnesium, Plasma (05/14/2025 1:45 AM EDT) Magnesium, Plasma 1.7(L) 1.9 - 2.4 mg/dL 05/14/2025 2:58 AM EST [facility] Blood Venous blood specimen / Unknown Venipuncture / Unknown 05/14/2025 1:45 AM EDT 05/14/2025 2:25 AM EST us Selin Lee MD LAB BLOOD ORDERABLES Final Re sult [facility] [address] [place] [address] * (ABNORMAL) Basic Metabolic Panel, Plasma (05/14/2025 1:45 AM EDT) Glucose, Plasma 282(H) 74 - 99 mg/dL 05/14/2025 2:58 AM EST [facility] BUN, Plasma 16 7 - 21 mg/dL 05/14/2025 2:58 AM EST [facility] Creatinine, Plasma 0.85 0.70 - 1.20 mg/dL 05/14/2025 2:58 AM EST [facility] BUN/Creatinine Ratio 19 05/14/2025 2:58 AM EST [facility] Sodium, Plasma 132(L) 136 - 145 mmol/L 05/14/2025 2:58 AM EST [facility] Potassium, Plasma 3.5(L) 3.6 - 4.9 mmol/L 05/14/2025 2:58 AM EST [facility] Chloride, Plasma 87(L) 97 - 107 mmol/L 05/14/2025 2:58 AM EST [facility] CO2, Plasma 34(H) 22 - 29 mmol/L 05/14/2025 2:58 AM EST [facility] Anion Gap 11 6 - 16 mmol/L 05/14/2025 2:58 AM EST [facility] Total Calcium, Plasma 9.2 8.9 - 10.2 mg/dL 05/14/2025 2:58 AM EST [facility] eGFRcr 107.9 mL/min/1.7 3m*2 05/14/2025 2:58 AM EST [facility] Comment:Reported eGFRcr in m L/min/1.73m2 is based the CKD-EPI 2020 equation that does not use a race coefficient. Blood Venous blood specimen / Unknown Venipuncture / Unknown 05/14/2025 1:45 AM EDT 05/14/2025 2:25 AM EST us Selin Lee MD LAB BLOOD ORDERABLES Final Re birdie Performing Organization Address City/[facility]/ZIP Co de Phone Number [facility] [address] [place] [address] * Phosphorus, Plasma (05/14/2025 1:45 AM EDT) Pathologist [facility] Phosphorus, Plasma 3.3 2.5 - 4.5 mg/dL 05/14/2025 2:58 AM EST [facility] Blood Venous blood specimen / Unknown Venipuncture / Unknown 05/14/2025 1:45 AM EDT 05/14/2025 2:25 AM EST us Selin Lee MD LAB BLOOD ORDERABLES Final Re sult [facility] [address] [place] [address] * (ABNORMAL) POCT glucose meter (05/13/2025 7:59 PM EDT) Pathologist [facility] POCT Glucose 257(H) 74 - 99 mg/dL 05/31/2025 3:12 PM EST [facility] Comment:Accuracy of a glucos e result [...] Comment 05/31/2025 3:12 PM EST [facility] Dining Room Attendant ID Stella Coleman 05/31/20 25 3:12 PM EST [facility] Device ID [id number] 05/31/2025 3:12 PM EST [facility] Specimen Type POC Capillary 05/31/2025 3:12 PM EST [facility] Blood Capillary blood specimen / Unknown 05/13/2025 7:59 PM EDT 05/31/2025 3:12 PM EST us Wily Goyal DO LAB POINT OF CARE TE ST DOCKED DEVICE UNSOLICITED RESULTS Final Result [facility] [address] [place] [address] * (ABNORMAL) POCT glucose meter (05/13/2025 4:58 PM EDT) [facility] POCT Glucose 217(H) 74 - 99 mg/dL [...] Comment 05/13/2025 5:00 PM EDT [facility] Dining Room Attendant ID Priyanka Negrete 05/13/20 5:00 PM EDT [facility] Device ID [id number] 05/13/2025 5:00 PM EDT [facility] Specimen Type POC Capillary 05/13/2025 5:00 PM EDT [facility] Blood Capillary blood specimen / Unknown 05/13/2025 4:58 PM EDT 05/13/2025 5:00 PM EDT Selin Lee MD LAB POINT OF CARE TE ST DOCKED DEVICE UNSOLICITED RESULTS Final Result Performing Organization Address City/State/[facility] Co de Phone Number [facility] [address] [place] [address] * (ABNORMAL) POCT glucose meter (05/13/2025 11:37 AM EDT) [facility] POCT Glucose 255(H) 74 - 99 mg/dL [...] 05/13/2025 11:41 AM EDT [facility] Dining Room Attendant ID Priyanka Negrete 05/13/20 11:41 AM EDT [facility] Device ID [id number] 05/13/2025 11:41 AM EDT [facility] Specimen Type POC Capillary 05/13/2025 11:41 AM EDT [facility] Blood Capillary blood specimen / Unknown 05/13/2025 11:37 AM EDT 05/13/2025 11:41 AM EDT Selin Lee MD LAB POINT OF CARE TE ST DOCKED DEVICE UNSOLICITED RESULTS Final Result Performing Organization Address City/[facility]/ZIP Co de Phone Number [facility] [address] [place] [address] * (ABNORMAL) POCT glucose meter (05/13/2025 7:42 AM EDT) POCT Glucose 233(H) 74 - 99 mg/dL 05/13/2025 7:45 AM EDT [facility] Comment:Accuracy of a glucos e result [...] Comment 05/13/2025 7:45 AM EDT [facility] Dining Room Attendant ID Priyanka Negrete 05/13/20 7:45 AM EDT [facility] Device ID [id number] 05/13/2025 7:45 AM EDT [facility] Specimen Type POC Capillary 05/13/2025 7:45 AM EDT [facility] Blood Capillary blood specimen / Unknown 05/13/2025 7:42 AM EDT 05/13/2025 7:45 AM EDT Selin Lee MD LAB POINT OF CARE TE ST DOCKED DEVICE UNSOLICITED RESULTS Final Result [facility] [address] [place] [address] * (ABNORMAL) CBC and Differential (05/13/2025 3:54 AM EDT) WBC Count 7.92 3.70 - 10.30 10*3/uL LAB HEMATOLOGY METHOD 05/13/2025 4:11 AM EDT [facility] RBC Count 4.40(L) 4.60 - 6.10 10*6/uL LAB HEMATOLOGY METHOD 05/13/2025 4:11 AM EDT [facility] HGB 9.9(L) 13.7 - 17.5 g/dL LAB HEMATOLOGY METHOD 05/13/2025 4:11 AM EDT [facility] HCT 33.0(L) 40.0 - 51.0 % LAB HEMATOLOGY METHOD 05/13/2025 4:11 AM EDT [facility] Platelet Count 276 155 - 369 10*3/uL LAB HEMATOLOGY METHOD 05/13/2025 4:11 AM EDT [facility] MCV 75(L) 79 - 98 fL LAB HEMATOLOGY METHOD 05/13/2025 4:11 AM EDT [facility] MCH 22.5(L) 26.0 - 32.0 pg LAB HEMATOLOGY METHOD 05/13/2025 4:11 AM EDT [facility] MCHC 30.0(L) 30.7 - 35.5 g/dL LAB HEMATOLOGY METHOD 05/13/2025 4:11 AM EDT [facility] RDW 17.8(H) 11.5 - 14.5 % LAB HEMATOLOGY METHOD 05/13/2025 4:11 AM EDT [facility] MPV 9.3 8.8 - 12.5 fL LAB HEMATOLOGY METHOD 05/13/2025 4:11 AM EDT [facility] nRBC 0.0 <=0.0 per 100 WBCs LAB HEMATOLOGY METHOD 05/13/2025 4:11 AM EDT [facility] Differential Type Automated LAB HEMATOLOGY METHOD 05/13/2025 4:11 AM EDT [facility] Neutrophils % 69 % LAB HEMATOLOGY METHOD 05/13/2025 4:11 AM EDT [facility] Lymphocytes % 17 % LAB HEMATOLOGY METHOD 05/13/2025 4:11 AM EDT [facility] Monocytes % 10 % LAB HEMATOLOGY METHOD 05/13/2025 4:11 AM EDT [facility] Eosinophils % 3 % LAB HEMATOLOGY METHOD 05/13/2025 4:11 AM EDT [facility] Basophils % 1 % LAB HEMATOLOGY METHOD 05/13/2025 4:11 AM EDT [facility] Immature Granulocytes % 0 % LAB HEMATOLOGY METHOD 05/13/2025 4:11 AM EDT [facility] Neutrophils Absolute 5.47 1.60 - 6.10 10*3/uL LAB HEMATOLOGY METHOD 05/13/2025 4:11 AM EDT [facility] Lymphocytes Absolute 1.33 1.20 - 3.90 10*3/uL LAB HEMATOLOGY METHOD 05/13/2025 4:11 AM EDT [facility] Monocytes Absolute 0.78 0.30 - 0.90 10*3/uL LAB HEMATOLOGY METHOD 05/13/2025 4:11 AM EDT [facility] Eosinophils Absolute 0.27 0.00 - 0.50 10*3/uL LAB HEMATOLOGY METHOD 05/13/2025 4:11 AM EDT [facility] Basophils Absolute 0.04 0.00 - 0.10 10*3/uL LAB HEMATOLOGY METHOD 05/13/2025 4:11 AM EDT [facility] Immature Granulocytes Absolute 0.03 0.00 - 0.06 10*3/uL LAB HEMATOLOGY METHOD 05/13/2025 4:11 AM EDT [facility] Blood Venous blood specimen / Unknown Venipuncture / Unknown 05/13/2025 3:54 AM EDT 05/13/2025 4:01 AM EDT Narrative [facility] - 05/13/2025 4:11 AM EDT Therapeutic decision making should be based on absolute values, rather than percentages. us Selin Lee MD LAB BLOOD ORDERABLES Final Re sult Performing Organization Address City/State/[facility] Co de Phone Number [facility] [address] [place] [address] * Magnesium, Plasma (05/13/2025 3:54 AM EDT) Magnesium, Plasma 1.9 1.9 - 2.4 mg/dL 05/13/2025 4:28 AM EDT [facility] Blood Venous blood specimen / Unknown Venipuncture / Unknown 05/13/2025 3:54 AM EDT 05/13/2025 4:01 AM EDT us Selin Lee MD LAB BLOOD ORDERABLES Final Re sult [facility] [address] [place] [address] * (ABNORMAL) Basic Metabolic Panel, Plasma (05/13/2025 3:54 AM EDT) Glucose, Plasma 238(H) 74 - 99 mg/dL 05/13/2025 4:28 AM EDT [facility] BUN, Plasma 16 7 - 21 mg/dL 05/13/2025 4:28 AM EDT [facility] Creatinine, Plasma 0.96 0.70 - 1.20 mg/dL 05/13/2025 4:28 AM EDT [facility] BUN/Creatinine Ratio 17 05/13/2025 4:28 AM EDT [facility] Sodium, Plasma 131(L) 136 - 145 mmol/L 05/13/2025 4:28 AM EDT [facility] Potassium, Plasma 3.3(L) 3.6 - 4.9 mmol/L 05/13/2025 4:28 AM EDT [facility] Chloride, Plasma 87(L) 97 - 107 mmol/L 05/13/2025 4:28 AM EDT [facility] CO2, Plasma 37(H) 22 - 29 mmol/L 05/13/2025 4:28 AM EDT [facility] Anion Gap 7 6 - 16 mmol/L 05/13/2025 4:28 AM EDT [facility] Total Calcium, Plasma 9.1 8.9 - 10.2 mg/dL 05/13/2025 4:28 AM EDT [facility] eGFRcr 98.1 mL/min/1.7 3m*2 05/13/2025 4:28 AM EDT [facility] Comment:Reported eGFRcr in m L/min/1.73m2 is based the CKD-EPI 2020 equation that does not use a race coefficient. Blood Venous blood specimen / Unknown Venipuncture / Unknown 05/13/2025 3:54 AM EDT 05/13/2025 4:01 AM EDT Selin Lee MD LAB BLOOD ORDERABLES Final Re sult Performing Organization Address City/State/[facility] Co de Phone Number [facility] [address] [place] [address] * Phosphorus, Plasma (05/13/2025 3:54 AM EDT) [facility] Phosphorus, Plasma 3.3 2.5 - 4.5 mg/dL 05/13/2025 4:28 AM EDT [facility] Blood Venous blood specimen / Unknown Venipuncture / Unknown 05/13/2025 3:54 AM EDT 05/13/2025 4:01 AM EDT us Selin Lee MD LAB BLOOD ORDERABLES Final Re sult Performing Organization Address [facility] Co de Phone Number [facility] [address] [place] [address] * (ABNORMAL) POCT glucose meter (05/12/2025 7:40 PM EDT) [facility] POCT Glucose 248(H) 74 - 99 mg/dL [...] 05/12/2025 7:42 PM EDT [facility] Dining Room Attendant ID Coleman Stella 05/12/20 7:42 PM EDT [facility] Device ID [id number] 05/12/2025 7:42 PM EDT [facility] Specimen Type POC Capillary 05/12/2025 7:42 PM EDT [facility] Blood Capillary blood specimen / Unknown 05/12/2025 7:40 PM EDT 05/12/2025 7:42 PM EDT us Selin Lee MD LAB POINT OF CARE TE ST DOCKED DEVICE UNSOLICITED RESULTS Final Result Performing Organization Address City/[facility]/ZIP Co de Phone Number [facility] [address] [place] [address] * (ABNORMAL) POCT glucose meter (05/12/2025 4:36 PM EDT) [facility] POCT Glucose 235(H) 74 - 99 mg/dL [...] 05/12/2025 4:38 PM EDT [facility] Dining Room Attendant ID Char Hinojosa 05/12/2025 4:38 PM EDT [facility] Device ID [id number] 05/12/2025 4:38 PM EDT [facility] Specimen Type POC Capillary 05/12/2025 4:38 PM EDT [facility] Blood Capillary blood specimen / Unknown 05/12/2025 4:36 PM EDT 05/12/2025 4:38 PM EDT Selin Lee MD LAB POINT OF CARE TE ST DOCKED DEVICE UNSOLICITED RESULTS Final Result [facility] [address] [place] [address] * (ABNORMAL) POCT glucose meter (05/12/2025 11:30 AM EDT) [facility] POCT Glucose 315(H) 74 - 99 mg/dL [...] 05/12/2025 11:32 AM EDT [facility] Dining Room Attendant ID Char Hinojosa 05/12/2025 11:32 AM EDT [facility] Device ID [id number] 05/12/2025 11:32 AM EDT [facility] Specimen Type POC Capillary 05/12/2025 11:32 AM EDT [facility] Blood Capillary blood specimen / Unknown 05/12/2025 11:30 AM EDT 05/12/2025 11:32 AM EDT us Selin Lee MD LAB POINT OF CARE TE ST DOCKED DEVICE UNSOLICITED RESULTS Final Result Performing Organization Address City/[facility]/ZIP Co de Phone Number [facility] [address] [place] [address] * (ABNORMAL) POCT glucose meter (05/12/2025 8:08 [...] Comment 05/12/2025 8:10 AM EDT [facility] Dining Room Attendant ID Char Hinojosa 05/12/2025 8:10 AM EDT [facility] Device ID [id number] 05/12/2025 8:10 AM EDT [facility] Specimen Type POC Capillary 05/12/2025 8:10 AM EDT [facility] Blood Capillary blood specimen / Unknown 05/12/2025 8:08 AM EDT 05/12/2025 8:10 AM EDT us Selin Lee MD LAB POINT OF CARE TE ST DOCKED DEVICE UNSOLICITED RESULTS Final Result Performing Organization Address City/[facility]/ZIP Co de Phone Number [facility] [address] [place] [address] * (ABNORMAL) CBC and Differential (05/12/2025 3:56 AM EDT) WBC Count 7.24 3.70 - 10.30 10*3/uL LAB HEMATOLOGY METHOD 05/12/2025 4:15 AM EDT [facility] RBC Count 4.28(L) 4.60 - 6.10 10*6/uL LAB HEMATOLOGY METHOD 05/12/2025 4:15 AM EDT [facility] HGB 9.4(L) 13.7 - 17.5 g/dL LAB HEMATOLOGY METHOD 05/12/2025 4:15 AM EDT [facility] HCT 31.8(L) 40.0 - 51.0 % LAB HEMATOLOGY METHOD 05/12/2025 4:15 AM EDT [facility] Platelet Count 266 155 - 369 10*3/uL LAB HEMATOLOGY METHOD 05/12/2025 4:15 AM EDT [facility] MCV 74(L) 79 - 98 fL LAB HEMATOLOGY METHOD 05/12/2025 4:15 AM EDT [facility] MCH 22.0(L) 26.0 - 32.0 pg LAB HEMATOLOGY METHOD 05/12/2025 4:15 AM EDT [facility] MCHC 29.6(L) 30.7 - 35.5 g/dL LAB HEMATOLOGY METHOD 05/12/2025 4:15 AM EDT [facility] RDW 18.0(H) 11.5 - 14.5 % LAB HEMATOLOGY METHOD 05/12/2025 4:15 AM EDT [facility] MPV 9.6 8.8 - 12.5 fL LAB HEMATOLOGY METHOD 05/12/2025 4:15 AM EDT [facility] nRBC 0.0 <=0.0 per 100 WBCs LAB HEMATOLOGY METHOD 05/12/2025 4:15 AM EDT [facility] Differential Type Automated LAB HEMATOLOGY METHOD 05/12/2025 4:15 AM EDT [facility] Neutrophils % 71 % LAB HEMATOLOGY METHOD 05/12/2025 4:15 AM EDT [facility] Lymphocytes % 16 % LAB HEMATOLOGY METHOD 05/12/2025 4:15 AM EDT [facility] Monocytes % 9 % LAB HEMATOLOGY METHOD 05/12/2025 4:15 AM EDT [facility] Eosinophils % 3 % LAB HEMATOLOGY METHOD 05/12/2025 4:15 AM EDT [facility] Basophils % 1 % LAB HEMATOLOGY METHOD 05/12/2025 4:15 AM EDT [facility] Immature Granulocytes % 0 % LAB HEMATOLOGY METHOD 05/12/2025 4:15 AM EDT [facility] Neutrophils Absolute 5.14 1.60 - 6.10 10*3/uL LAB HEMATOLOGY METHOD 05/12/2025 4:15 AM EDT [facility] Lymphocytes Absolute 1.15(L) 1.20 - 3.90 10*3/uL LAB HEMATOLOGY METHOD 05/12/2025 4:15 AM EDT [facility] Monocytes Absolute 0.66 0.30 - 0.90 10*3/uL LAB HEMATOLOGY METHOD 05/12/2025 4:15 AM EDT [facility] Eosinophils Absolute 0.22 0.00 - 0.50 10*3/uL LAB HEMATOLOGY METHOD 05/12/2025 4:15 AM EDT [facility] Basophils Absolute 0.05 0.00 - 0.10 10*3/uL LAB HEMATOLOGY METHOD 05/12/2025 4:15 AM EDT [facility] Immature Granulocytes Absolute 0.02 0.00 - 0.06 10*3/uL LAB HEMATOLOGY METHOD 05/12/2025 4:15 AM EDT [facility] Blood Venous blood specimen / Unknown Venipuncture / Unknown 05/12/2025 3:56 AM EDT 05/12/2025 4:03 AM EDT Narrative [facility] - 05/12/2025 4:15 AM EDT Therapeutic decision making should be based on absolute values, rather than percentages. us Selin Lee MD LAB BLOOD ORDERABLES Final Re sult [facility] [address] [place] [address] * (ABNORMAL) Magnesium, Plasma (05/12/2025 3:56 AM EDT) Magnesium, Plasma 1.7(L) 1.9 - 2.4 mg/dL 05/12/2025 4:36 AM EDT [facility] Blood Venous blood specimen / Unknown Venipuncture / Unknown 05/12/2025 3:56 AM EDT 05/12/2025 4:03 AM EDT us Selin Lee MD LAB BLOOD ORDERABLES Final Re sult [facility] [address] [place] [address] * (ABNORMAL) Basic Metabolic Panel, Plasma (05/12/2025 3:56 AM EDT) Glucose, Plasma 383(H) 74 - 99 mg/dL 05/12/2025 4:36 AM EDT [facility] BUN, Plasma 18 7 - 21 mg/dL 05/12/2025 4:36 AM EDT [facility] Creatinine, Plasma 0.86 0.70 - 1.20 mg/dL 05/12/2025 4:36 AM EDT [facility] BUN/Creatinine Ratio 21 05/12/2025 4:36 AM EDT [facility] Sodium, Plasma 130(L) 136 - 145 mmol/L 05/12/2025 4:36 AM EDT [facility] Potassium, Plasma 3.2(L) 3.6 - 4.9 mmol/L 05/12/2025 4:36 AM EDT [facility] Chloride, Plasma 85(L) 97 - 107 mmol/L 05/12/2025 4:36 AM EDT [facility] CO2, Plasma 36(H) 22 - 29 mmol/L 05/12/2025 4:36 AM EDT [facility] Anion Gap 9 6 - 16 mmol/L 05/12/2025 4:36 AM EDT [facility] Total Calcium, Plasma 8.9 8.9 - 10.2 mg/dL 05/12/2025 4:36 AM EDT [facility] eGFRcr 107.5 mL/min/1.7 3m*2 05/12/2025 4:36 AM EDT [facility] Comment:Reported eGFRcr in m L/min/1.73m2 is based the CKD-EPI 2020 equation that does not use a race coefficient. Blood Venous blood specimen / Unknown Venipuncture / Unknown 05/12/2025 3:56 AM EDT 05/12/2025 4:03 AM EDT us Selin Lee MD LAB BLOOD ORDERABLES Final Re sult Performing Organization Address City/[facility]/ZIP Co de Phone Number [facility] [address] [place] [address] * Phosphorus, Plasma (05/12/2025 3:56 AM EDT) [facility] Phosphorus, Plasma 2.8 2.5 - 4.5 mg/dL 05/12/2025 4:36 AM EDT [facility] Blood Venous blood specimen / Unknown Venipuncture / Unknown 05/12/2025 3:56 AM EDT 05/12/2025 4:03 AM EDT us Selin Lee MD LAB BLOOD ORDERABLES Final Re sult Performing Organization Address [facility] de Phone Number [facility] [address] [place] [address] * (ABNORMAL) POCT glucose meter (05/12/2025 3:11 AM EDT) [facility] POCT Glucose 348(H) 74 - 99 mg/dL [...] 05/12/2025 3:13 AM EDT [facility] Dining Room Attendant ID Mathew Edshuterikigus 05/12/2025 3:13 AM EDT [facility] Device ID [id number] 05/12/2025 3:13 AM EDT [facility]ALTH[facility] LAB Specimen Type POC Capillary 05/12/2025 3:13 AM EDT [facility] Blood Capillary blood specimen / Unknown 05/12/2025 3:11 AM EDT 05/12/2025 3:13 AM EDT us Selin Lee MD LAB POINT OF CARE TE ST DOCKED DEVICE UNSOLICITED RESULTS Final Result Performing Organization Address [facility] Co de Phone Number [facility] [address] [place] [address] * (ABNORMAL) POCT glucose meter (05/11/2025 7:57 PM EDT) Pathologist [facility] POCT Glucose 272(H) 74 - 99 [...] Comment 05/11/2025 8:02 PM EDT [facility]ALTH[facility] LAB Dining Room Attendant ID Joel Carmona 05/11/2025 8:02 PM EDT HEALTHCARE LAB Device ID [id number] 05/11/2025 8:02 PM EDT HEALTHCARE LAB Specimen Type POC Capillary 05/11/2025 8:02 PM EDT [facility] Blood Capillary blood specimen / Unknown 05/11/2025 7:57 PM EDT 05/11/2025 8:02 PM EDT Selin Lee MD LAB POINT OF CARE TE ST DOCKED DEVICE UNSOLICITED RESULTS Final Result Performing Organization Address [facility] Co de Phone Number [facility] [address] [place] [address] * (ABNORMAL) POCT glucose meter (05/11/2025 5:05 PM EDT) Pathologist [facility] POCT Glucose 258(H) 74 - 99 [...] 05/11/2025 5:07 PM EDT [facility] Dining Room Attendant ID Char Hinojosa 05/11/2025 5:07 PM EDT HEALTHCARE LAB Device ID [id number] 05/11/2025 5:07 PM EDT HEALTHCARE LAB Specimen Type POC Capillary 05/11/2025 5:07 PM EDT [facility] LAB Blood Capillary blood specimen / Unknown 05/11/2025 5:05 PM EDT 05/11/2025 5:07 PM EDT Selin Lee MD LAB POINT OF CARE TE ST DOCKED DEVICE UNSOLICITED RESULTS Final Result Performing Organization Address City/[facility]/ZIP Co de Phone Number [facility] [address] [place] [address] * (ABNORMAL) POCT glucose meter (05/11/2025 12:13 PM EDT) Pathologist [facility] POCT Glucose 240(H) 74 - 99 [...] Comment 05/11/2025 12:15 PM EDT HEALTHCARE LAB Dining Room Attendant ID Char Hinojosa 05/11/2025 12:15 PM EDT HEALTHCARE LAB Device ID [id number] 05/11/2025 12:15 PM EDT HEALTHCARE LAB Specimen Type POC Capillary 05/11/2025 12:15 PM EDT [facility] Blood Capillary blood specimen / Unknown 05/11/2025 12:13 PM EDT 05/11/2025 12:15 PM EDT us Selin Lee MD LAB POINT OF CARE TE ST DOCKED DEVICE UNSOLICITED RESULTS Final Result Performing Organization Address City/[facility]/ZIP Co de Phone Number [facility] [address] [place] [address] * (ABNORMAL) POCT glucose meter (05/11/2025 7:57 [...] Comment 05/11/2025 7:59 AM EDT [facility] Dining Room Attendant ID Char Hinojosa 05/11/2025 7:59 AM EDT [facility] Device ID [id number] 05/11/2025 7:59 AM EDT [facility] Specimen Type POC Capillary 05/11/2025 7:59 AM EDT [facility] Blood Capillary blood specimen / Unknown 05/11/2025 7:57 AM EDT 05/11/2025 7:59 AM EDT Selin Lee MD LAB POINT OF CARE TE ST DOCKED DEVICE UNSOLICITED RESULTS Final Result Performing Organization Address City/State/[facility] Co de Phone Number [facility] [address] [place] [address] * ECG Adult (05/11/2025 6:11 AM EDT) Pathologist [facility] EKG DIAGNOSIS CLASS Abnormal MUSE ECG Ventricular Rate 59 BPM MUSE ECG Atrial Rate [address] Interval 176 ms MUSE ECG QRSD Interval 160 ms MUSE ECG QT Interval 520 ms MUSE ECG QTC Interval 514 ms MUSE ECG P Reserve 21 degrees MUSE ECG R Reserve -32 degrees MUSE ECG T Wave Reserve -9 degrees MUSE ECG Diagnosis Sinus bradycardia [...] MUSE ECG Diagnosis Confirmed by Tone Lainez ([id number]) on 05/12/2025 11:35:23 AM MUSE ECG 05/11/2025 6:11 AM EDT 05/12/2025 11:35 AM EDT us Selin Lee MD ECG ORDERABLES Final Result Performing Organization Address City/[facility]/ZIP Co de Phone Number MUSE ECG * [...] Comment 05/11/2025 3:45 AM EDT [facility] Dining Room Attendant ID Kaylin Barron 05/11/2025 3:45 AM EDT [facility] Device ID [id number] 05/11/2025 3:45 AM EDT [facility] Specimen Type POC Capillary 05/11/2025 3:45 AM EDT [facility] Blood Capillary blood specimen / Unknown 05/11/2025 3:42 AM EDT 05/11/2025 3:45 AM EDT us Selin Lee MD LAB POINT OF CARE TE ST DOCKED DEVICE UNSOLICITED RESULTS Final Result Performing Organization Address City/[facility] Co de Phone Number [facility] [address] [place] [address] * (ABNORMAL) CBC and Differential (05/11/2025 3:24 AM EDT) WBC Count 6.72 3.70 - 10.30 10*3/uL LAB HEMATOLOGY METHOD 05/11/2025 3:42 AM EDT [facility] RBC Count 4.13(L) 4.60 - 6.10 10*6/uL LAB HEMATOLOGY METHOD 05/11/2025 3:42 AM EDT [facility] HGB 9.5(L) 13.7 - 17.5 g/dL LAB HEMATOLOGY METHOD 05/11/2025 3:42 AM EDT [facility] HCT 31.1(L) 40.0 - 51.0 % LAB HEMATOLOGY METHOD 05/11/2025 3:42 AM EDT [facility] Platelet Count 253 155 - 369 10*3/uL LAB HEMATOLOGY METHOD 05/11/2025 3:42 AM EDT [facility] MCV 75(L) 79 - 98 fL LAB HEMATOLOGY METHOD 05/11/2025 3:42 AM EDT [facility] MCH 23.0(L) 26.0 - 32.0 pg LAB HEMATOLOGY METHOD 05/11/2025 3:42 AM EDT [facility] MCHC 30.5(L) 30.7 - 35.5 g/dL LAB HEMATOLOGY METHOD 05/11/2025 3:42 AM EDT [facility] RDW 17.8(H) 11.5 - 14.5 % LAB HEMATOLOGY METHOD 05/11/2025 3:42 AM EDT [facility] MPV 9.5 8.8 - 12.5 fL LAB HEMATOLOGY METHOD 05/11/2025 3:42 AM EDT [facility] nRBC 0.0 <=0.0 per 100 WBCs LAB HEMATOLOGY METHOD 05/11/2025 3:42 AM EDT [facility] Differential Type Automated LAB HEMATOLOGY METHOD 05/11/2025 3:42 AM EDT [facility] Neutrophils % 68 % LAB HEMATOLOGY METHOD 05/11/2025 3:42 AM EDT [facility] Lymphocytes % 17 % LAB HEMATOLOGY METHOD 05/11/2025 3:42 AM EDT [facility] Monocytes % 11 % LAB HEMATOLOGY METHOD 05/11/2025 3:42 AM EDT [facility] Eosinophils % 3 % LAB HEMATOLOGY METHOD 05/11/2025 3:42 AM EDT [facility] Basophils % 1 % LAB HEMATOLOGY METHOD 05/11/2025 3:42 AM EDT [facility] Immature Granulocytes % 0 % LAB HEMATOLOGY METHOD 05/11/2025 3:42 AM EDT [facility] Neutrophils Absolute 4.61 1.60 - 6.10 10*3/uL LAB HEMATOLOGY METHOD 05/11/2025 3:42 AM EDT [facility] Lymphocytes Absolute 1.11(L) 1.20 - 3.90 10*3/uL LAB HEMATOLOGY METHOD 05/11/2025 3:42 AM EDT [facility] Monocytes Absolute 0.72 0.30 - 0.90 10*3/uL LAB HEMATOLOGY METHOD 05/11/2025 3:42 AM EDT [facility] Eosinophils Absolute 0.21 0.00 - 0.50 10*3/uL LAB HEMATOLOGY METHOD 05/11/2025 3:42 AM EDT [facility] Basophils Absolute 0.05 0.00 - 0.10 10*3/uL LAB HEMATOLOGY METHOD 05/11/2025 3:42 AM EDT [facility] Immature Granulocytes Absolute 0.02 0.00 - 0.06 10*3/uL LAB HEMATOLOGY METHOD 05/11/2025 3:42 AM EDT [facility] Blood Venous blood specimen / Unknown Venipuncture / Unknown 05/11/2025 3:24 AM EDT 05/11/2025 3:30 AM EDT Narrative [facility] - 05/11/2025 3:42 AM EDT Therapeutic decision making should be based on absolute values, rather than percentages. us Selin Lee MD LAB BLOOD ORDERABLES Final Re sult Performing Organization Address [facility]/ZIP Co de Phone Number [facility] [address] [place] [address] * (ABNORMAL) Magnesium, Plasma (05/11/2025 3:24 AM EDT) Magnesium, Plasma 1.8(L) 1.9 - 2.4 mg/dL 05/11/2025 3:58 AM EDT [facility] Blood Venous blood specimen / Unknown Venipuncture / Unknown 05/11/2025 3:24 AM EDT 05/11/2025 3:30 AM EDT us Selin Lee MD LAB BLOOD ORDERABLES Final Re sult Performing Organization Address City/[facility]/ZIP Co de Phone Number [facility] [address] [place] [address] * (ABNORMAL) Basic Metabolic Panel, Plasma (05/11/2025 3:24 AM EDT) Glucose, Plasma 338(H) 74 - 99 mg/dL 05/11/2025 3:58 AM EDT [facility] BUN, Plasma 18 7 - 21 mg/dL 05/11/2025 3:58 AM EDT [facility] Creatinine, Plasma 0.86 0.70 - 1.20 mg/dL 05/11/2025 3:58 AM EDT [facility] BUN/Creatinine Ratio 21 05/11/2025 3:58 AM EDT [facility] Sodium, Plasma 131(L) 136 - 145 mmol/L 05/11/2025 3:58 AM EDT [facility] Potassium, Plasma 3.2(L) 3.6 - 4.9 mmol/L 05/11/2025 3:58 AM EDT [facility] Chloride, Plasma 85(L) 97 - 107 mmol/L 05/11/2025 3:58 AM EDT [facility] CO2, Plasma 39(H) 22 - 29 mmol/L 05/11/2025 3:58 AM EDT [facility] Anion Gap 7 6 - 16 mmol/L 05/11/2025 3:58 AM EDT [facility] Total Calcium, Plasma 9.1 8.9 - 10.2 mg/dL 05/11/2025 3:58 AM EDT [facility] eGFRcr 107.5 mL/min/1.7 3m*2 05/11/2025 3:58 AM EDT [facility] Comment:Reported eGFRcr in m L/min/1.73m2 is based the CKD-EPI 2020 equation that does not use a race coefficient. Blood Venous blood specimen / Unknown Venipuncture / Unknown 05/11/2025 3:24 AM EDT 05/11/2025 3:30 AM EDT us Selin Lee MD LAB BLOOD ORDERABLES Final Re sult [facility] [address] [place] [address] * Phosphorus, Plasma (05/11/2025 3:24 AM EDT) [facility] Phosphorus, Plasma 3.1 2.5 - 4.5 mg/dL 05/11/2025 3:58 AM EDT [facility] Blood Venous blood specimen / Unknown Venipuncture / Unknown 05/11/2025 3:24 AM EDT 05/11/2025 3:30 AM EDT us Selin Lee MD LAB BLOOD ORDERABLES Final Re sult Performing Organization Address City/[facility]/ZIP Co de Phone Number [facility] [address] [place] [address] * (ABNORMAL) POCT glucose meter (05/10/2025 7:07 PM EDT) [facility] POCT Glucose 398(H) 74 - 99 mg/dL [...] Comment 05/10/2025 7:10 PM EDT [facility] Dining Room Attendant ID Char Hinojosa 05/10/2025 7:10 PM EDT [facility] Device ID [id number] 05/10/2025 7:10 PM EDT [facility] Specimen Type POC Capillary 05/10/2025 7:10 PM EDT [facility] Blood Capillary blood specimen / Unknown 05/10/2025 7:07 PM EDT 05/10/2025 7:10 PM EDT us Selin Lee MD LAB POINT OF CARE TE ST DOCKED DEVICE UNSOLICITED RESULTS Final Result Performing Organization Address City/[facility]/ZIP Co de Phone Number [facility] [address] [place] [address] * (ABNORMAL) POCT glucose meter (05/10/2025 4:55 PM EDT) [facility] POCT Glucose 418(H) 74 - 99 mg/dL [...] 05/10/2025 4:57 PM EDT [facility] Dining Room Attendant ID Char Hinojosa 05/10/2025 4:57 PM EDT [facility] Device ID [id number] 05/10/2025 4:57 PM EDT [facility] Specimen Type POC Capillary 05/10/2025 4:57 PM EDT [facility] Blood Capillary blood specimen / Unknown 05/10/2025 4:55 PM EDT 05/10/2025 4:57 PM EDT Selin Lee MD LAB POINT OF CARE TE ST DOCKED DEVICE UNSOLICITED RESULTS Final Result [facility] [address] [place] [address] * (ABNORMAL) POCT glucose meter (05/10/2025 11:41 AM EDT) [facility] POCT Glucose 348(H) 74 - 99 mg/dL [...] 05/10/2025 11:43 AM EDT [facility] Dining Room Attendant ID Char Hinojosa 05/10/2025 11:43 AM EDT [facility] Device ID [id number] 05/10/2025 11:43 AM EDT [facility] Specimen Type POC Capillary 05/10/2025 11:43 AM EDT [facility] Blood Capillary blood specimen / Unknown 05/10/2025 11:41 AM EDT 05/10/2025 11:43 AM EDT us Selin Lee MD LAB POINT OF CARE TE ST DOCKED DEVICE UNSOLICITED RESULTS Final Result [facility] [address] [place] [address] * ECG 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/2025 11:20 AM EDT) EKG DIAGNOSIS CLASS Abnormal MUSE ECG Ventricular Rate 65 BPM MUSE ECG Atrial Rate [address] Interval 198 ms MUSE ECG QRSD Interval 154 ms MUSE ECG QT Interval 508 ms MUSE ECG QTC Interval 528 ms MUSE ECG P Reserve 66 degrees MUSE ECG R Reserve -39 degrees MUSE ECG T Wave Reserve -16 degrees MUSE ECG Diagnosis Normal sinus rhythm with sinus arrhythmia MUSE ECG Diagnosis Left axis deviation MUSE ECG Diagnosis Right bundle branch block MUSE ECG Diagnosis Minimal voltage criteria for LVH, may be normal variant ( R in aVL ) MUSE ECG Diagnosis Abnormal ECG MUSE ECG Diagnosis MUSE ECG Diagnosis Confirmed by Manas Mccauley ([id number]) on 05/10/2025 3:20:48 PM MUSE ECG 05/10/2025 11:2 0 AM EDT 05/10/2025 3:20 PM EDT us Selin Lee MD ECG ORDERABLES Final Result Performing Organization Address City/[facility] Co de Phone Number MUSE ECG * (ABNORMAL) POCT glucose meter (05/10/2025 7:30 AM EDT) Pathologist [facility] POCT Glucose 332(H) 74 - 99 mg/dL 05/10/2025 7:33 AM EDT [facility] Comment:Accuracy of a glucos e result [...] for testing. Comment 05/10/2025 7:33 AM EDT [facility] Dining Room Attendant ID Char Hinojosa 05/10/2025 7:33 AM EDT [facility] Device ID [id number] 05/10/2025 7:33 AM EDT [facility] Specimen Type POC Capillary 05/10/2025 7:33 AM EDT [facility] Blood Capillary blood specimen / Unknown 05/10/2025 7:30 AM EDT 05/10/2025 7:33 AM EDT Selin Lee MD LAB POINT OF CARE TE ST DOCKED DEVICE UNSOLICITED RESULTS Final Result Performing Organization Address City/[facility]/ZIP Co de Phone Number [facility] [address] [place] [address] * ECG 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/2025 6:14 AM EDT) Pathologist [facility] EKG DIAGNOSIS CLASS Abnormal MUSE ECG Ventricular Rate 56 BPM MUSE ECG Atrial Rate [address] Interval 196 ms MUSE ECG QRSD Interval 164 ms MUSE ECG QT Interval 508 ms MUSE ECG QTC Interval 490 ms MUSE ECG P Reserve 74 degrees MUSE ECG R Reserve -33 degrees MUSE ECG T Wave Reserve -10 degrees MUSE ECG Diagnosis Sinus bradycardia with sinus arrhythmia MUSE ECG Diagnosis Left axis deviation MUSE ECG Diagnosis Right bundle branch block MUSE ECG Diagnosis T wave abnormality, consider lateral ischemia MUSE ECG Diagnosis Abnormal ECG MUSE ECG Diagnosis MUSE ECG Diagnosis Confirmed by Manas Mccauley ([id number]) on 05/10/2025 2:45:37 PM MUSE ECG 05/10/2025 6:14 AM EDT 05/10/2025 2:45 PM EDT Selin Lee MD ECG ORDERABLES Final Result Performing Organization Address City/[facility]/ZIP Co de Phone Number MUSE ECG * (ABNORMAL) POCT glucose meter (05/10/2025 4:00 AM EDT) [facility] POCT Glucose 377(H) 74 - 99 mg/dL [...] Comment 05/10/2025 4:02 AM EDT [facility] Dining Room Attendant ID Maribell Saeed 4:02 AM EDT [facility] Device ID [id number] 05/10/2025 4:02 AM EDT [facility] Specimen Type POC Capillary 05/10/2025 4:02 AM EDT [facility] Blood Capillary blood specimen / Unknown 05/10/2025 4:00 AM EDT 05/10/2025 4:02 AM EDT Diane Guzman MD LAB POINT OF CARE T EST DOCKED DEVICE UNSOLICITED RESULTS Final Result Performing Organization Address City/State/[facility] de Phone Number [facility] [address] [place] [address] * (ABNORMAL) POCT glucose meter (05/09/2025 8:37 PM EDT) [facility] POCT Glucose 296(H) 74 - 99 mg/dL [...] Comment 05/09/2025 8:39 PM EDT [facility] Dining Room Attendant ID Maribell Saeed 8:39 PM EDT [facility] Device ID [id number] 05/09/2025 8:39 PM EDT [facility] Specimen Type POC Capillary 05/09/2025 8:39 PM EDT [facility] Blood Capillary blood specimen / Unknown 05/09/2025 8:37 PM EDT 05/09/2025 8:39 PM EDT us Diane Guzman MD LAB POINT OF CARE T EST DOCKED DEVICE UNSOLICITED RESULTS Final Result [facility] [address] [place] [address] * Magnesium (05/09/2025 5:54 PM EDT) Magnesium, Plasma 1.9 1.9 - 2.4 mg/dL 05/09/2025 6:56 PM EDT [facility] Blood Venous blood specimen / Unknown Venipuncture / Unknown 05/09/2025 5:54 PM EDT 05/09/2025 6:25 PM EDT us Selin Lee MD LAB BLOOD ORDERABLES Final Re sult Performing Organization Address [facility]/ZIP Co de Phone Number [facility] [address] [place] [address] * (ABNORMAL) Basic metabolic panel (05/09/2025 5:54 PM EDT) Glucose, Plasma 416(H) 74 - 99 mg/dL 05/09/2025 6:56 PM EDT [facility] BUN, Plasma 17 7 - 21 mg/dL 05/09/2025 6:56 PM EDT [facility] Creatinine, Plasma 0.81 0.70 - 1.20 mg/dL 05/09/2025 6:56 PM EDT [facility] BUN/Creatinine Ratio 21 05/09/2025 6:56 PM EDT [facility] Sodium, Plasma 130(L) 136 - 145 mmol/L 05/09/2025 6:56 PM EDT [facility] Potassium, Plasma 3.1(L) 3.6 - 4.9 mmol/L 05/09/2025 6:56 PM EDT [facility] Chloride, Plasma 84(L) 97 - 107 mmol/L 05/09/2025 6:56 PM EDT [facility] CO2, Plasma 35(H) 22 - 29 mmol/L 05/09/2025 6:56 PM EDT [facility] Anion Gap 11 6 - 16 mmol/L 05/09/2025 6:56 PM EDT [facility] Total Calcium, Plasma 9.1 8.9 - 10.2 mg/dL 05/09/2025 6:56 PM EDT [facility] eGFRcr 109.4 mL/min/1.7 3m*2 05/09/2025 6:56 PM EDT [facility] Comment:Reported eGFRcr in m L/min/1.73m2 is based the CKD-EPI 2020 equation that does not use a race coefficient. Blood Venous blood specimen / Unknown Venipuncture / Unknown 05/09/2025 5:54 PM EDT 05/09/2025 6:25 PM EDT us Selin Lee MD LAB BLOOD ORDERABLES Final Re sult Performing Organization Address City/[facility]/ZIP Co de Phone Number [facility] [address] [place] [address] * (ABNORMAL) POCT glucose meter (05/09/2025 5:17 [...] Comment 05/09/2025 5:20 PM EDT [facility] Dining Room Attendant ID Char Hinojosa 05/09/2025 5:20 PM EDT [facility] Device ID [id number] 05/09/2025 5:20 PM EDT [facility] Specimen Type POC Capillary 05/09/2025 5:20 PM EDT [facility] Blood Capillary blood specimen / Unknown 05/09/2025 5:17 PM EDT 05/09/2025 5:20 PM EDT us Diane Guzman MD LAB POINT OF CARE T EST DOCKED DEVICE UNSOLICITED RESULTS Final Result Performing Organization Address City/[facility]/ZIP Co de Phone Number [facility] [address] [place] [address] * ECG Adult (05/09/2025 12:34 PM EDT) EKG DIAGNOSIS CLASS Abnormal MUSE ECG Ventricular Rate 75 BPM MUSE ECG Atrial Rate [address] Interval 176 ms MUSE ECG QRSD Interval 164 ms MUSE ECG QT Interval 454 ms MUSE ECG QTC Interval 506 ms MUSE ECG P Reserve 70 degrees MUSE ECG R Reserve -38 degrees MUSE ECG T Wave Reserve 2 degrees MUSE ECG Diagnosis Normal sinus rhythm MUSE ECG Diagnosis Left axis deviation MUSE ECG Diagnosis Right bundle branch block MUSE ECG Diagnosis Minimal voltage criteria for LVH, may be normal variant ( R in aVL ) MUSE ECG Diagnosis T wave abnormality, consider lateral ischemia MUSE ECG Diagnosis Abnormal ECG MUSE ECG Diagnosis MUSE ECG Diagnosis Confirmed by Garrett Robles ([id number]) on 05/09/2025 2:20:08 PM MUSE ECG 05/09/2025 12:3 4 PM EDT 05/09/2025 2:20 PM EDT Selin Lee MD ECG ORDERABLES Final Result MUSE ECG * (ABNORMAL) POCT glucose meter (05/09/2025 12:25 PM EDT) Pathologist [facility] POCT Glucose 283(H) 74 - 99 mg/dL [...] 05/09/2025 12:27 PM EDT [facility] Dining Room Attendant ID Dunia Montgomery 05/09/2025 12:27 PM EDT [facility] Device ID [id number] 05/09/2025 12:27 PM EDT [facility] Specimen Type POC Capillary 05/09/2025 12:27 PM EDT [facility] Blood Capillary blood specimen / Unknown 05/09/2025 12:25 PM EDT 05/09/2025 12:27 PM EDT Diane Guzman MD LAB POINT OF CARE T EST DOCKED DEVICE UNSOLICITED RESULTS Final Result Performing Organization Address City/[facility] de Phone Number [facility] [address] [place] [address] * (ABNORMAL) POCT glucose meter (05/09/2025 7:52 AM EDT) Pathologist [facility] POCT Glucose 306(H) 74 - 99 mg/dL [...] Comment 05/09/2025 7:54 AM EDT [facility] Dining Room Attendant ID Char Hinojosa 05/09/2025 7:54 AM EDT [facility] Device ID [id number] 05/09/2025 7:54 AM EDT [facility] Specimen Type POC Capillary 05/09/2025 7:54 AM EDT [facility] Blood Capillary blood specimen / Unknown 05/09/2025 7:52 AM EDT 05/09/2025 7:54 AM EDT Diane Guzman MD LAB POINT OF CARE T EST DOCKED DEVICE UNSOLICITED RESULTS Final Result Performing Organization Address City/[facility] Co de Phone Number [facility] [address] [place] [address] * (ABNORMAL) POCT glucose meter (05/08/2025 11:54 PM EDT) Pathologist [facility] POCT Glucose 273(H) 74 - 99 mg/dL [...] 05/08/2025 11:56 PM EDT [facility] Dining Room Attendant ID Kaylin Barron 05/08/2025 11:56 PM EDT [facility] Device ID [id number] 05/08/2025 11:56 PM EDT [facility] Specimen Type POC Capillary 05/08/2025 11:56 PM EDT [facility] Blood Capillary blood specimen / Unknown 05/08/2025 11:54 PM EDT 05/08/2025 11:56 PM EDT Diane Guzman MD LAB POINT OF CARE T EST DOCKED DEVICE UNSOLICITED RESULTS Final Result Performing Organization Address [facility] de Phone Number [facility] [address] [place] [address] * (ABNORMAL) POCT glucose meter (05/08/2025 7:33 [...] Comment 05/08/2025 7:35 PM EDT [facility] Dining Room Attendant ID Kaylin Barron 05/08/2025 7:35 PM EDT [facility] Device ID [id number] 05/08/2025 7:35 PM EDT [facility] Specimen Type POC Capillary 05/08/2025 7:35 PM EDT [facility] Blood Capillary blood specimen / Unknown 05/08/2025 7:33 PM EDT 05/08/2025 7:35 PM EDT us Diane Guzman MD LAB POINT OF CARE T EST DOCKED DEVICE UNSOLICITED RESULTS Final Result Performing Organization Address [facility] Co de Phone Number [facility] [address] [place] [address] * (ABNORMAL) POCT glucose meter (05/08/2025 5:00 PM EDT) [facility] POCT Glucose 347(H) 74 - 99 mg/dL [...] 05/08/2025 5:02 PM EDT [facility] Dining Room Attendant ID Char Hinojosa 05/08/2025 5:02 PM EDT [facility] Device ID [id number] 05/08/2025 5:02 PM EDT [facility] Specimen Type POC Capillary 05/08/2025 5:02 PM EDT [facility] Blood Capillary blood specimen / Unknown 05/08/2025 5:00 PM EDT 05/08/2025 5:02 PM EDT Diane Guzman MD LAB POINT OF CARE T EST DOCKED DEVICE UNSOLICITED RESULTS Final Result [facility] [address] [place] [address] * (ABNORMAL) POCT glucose meter (05/08/2025 11:42 AM EDT) [facility] POCT Glucose 298(H) 74 - 99 mg/dL [...] 05/08/2025 11:44 AM EDT [facility] Dining Room Attendant ID Char Hinojosa 05/08/2025 11:44 AM EDT [facility] Device ID [id number] 05/08/2025 11:44 AM EDT [facility] Specimen Type POC Capillary 05/08/2025 11:44 AM EDT [facility] Blood Capillary blood specimen / Unknown 05/08/2025 11:42 AM EDT 05/08/2025 11:44 AM EDT Diane Guzman MD LAB POINT OF CARE T EST DOCKED DEVICE UNSOLICITED RESULTS Final Result Performing Organization Address City/[facility]/ZIP Co de Phone Number [facility] [address] [place] [address] * (ABNORMAL) POCT glucose meter (05/08/2025 8:05 [...] Comment 05/08/2025 8:07 AM EDT [facility] Dining Room Attendant ID Char Hinojosa 05/08/2025 8:07 AM EDT [facility]ALTH[facility] LAB Device ID [id number] 05/08/2025 8:07 AM EDT [facility] Specimen Type POC Capillary 05/08/2025 8:07 AM EDT [facility] Blood Capillary blood specimen / Unknown 05/08/2025 8:05 AM EDT 05/08/2025 8:07 AM EDT us Diane Guzman MD LAB POINT OF CARE T EST DOCKED DEVICE UNSOLICITED RESULTS Final Result Performing Organization Address City/[facility]/ZIP Co de Phone Number [facility] [address] [place] [address] * (ABNORMAL) POCT glucose meter (05/08/2025 3:56 [...] Comment 05/08/2025 3:58 AM EDT [facility] Dining Room Attendant ID Stella Coleman 05/08/20 3:58 AM EDT [facility]ALTH[facility] LAB Device ID [id number] 05/08/2025 3:58 AM EDT [facility] Specimen Type POC Capillary 05/08/2025 3:58 AM EDT [facility] Blood Capillary blood specimen / Unknown 05/08/2025 3:56 AM EDT 05/08/2025 3:58 AM EDT Diane Guzman MD LAB POINT OF CARE T EST DOCKED DEVICE UNSOLICITED RESULTS Final Result Performing Organization Address City/State/[facility] Co de Phone Number [facility] [address] [place] [address] * (ABNORMAL) POCT glucose meter (05/07/2025 8:14 PM EDT) [facility] POCT Glucose 392(H) 74 - 99 mg/dL [...] Comment 05/07/2025 8:15 PM EDT [facility] Dining Room Attendant ID Fela Coelho 05/07/2025 8:15 PM EDT [facility] Device ID [id number] 05/07/2025 8:15 PM EDT [facility] Specimen Type POC Capillary 05/07/2025 8:15 PM EDT [facility] Blood Capillary blood specimen / Unknown 05/07/2025 8:14 PM EDT 05/07/2025 8:15 PM EDT Diane Guzman MD LAB POINT OF CARE T EST DOCKED DEVICE UNSOLICITED RESULTS Final Result Performing Organization Address City/[facility] Co de Phone Number [facility] [address] [place] [address] * (ABNORMAL) POCT glucose meter (05/07/2025 5:10 [...] Comment 05/07/2025 5:13 PM EDT [facility] Dining Room Attendant ID Priyanka Negrete 05/07/20 5:13 PM EDT HEALTH[facility]ARE LAB Device ID [id number] 05/07/2025 5:13 PM EDT [facility] Specimen Type POC Capillary 05/07/2025 5:13 PM EDT [facility] Blood Capillary blood specimen / Unknown 05/07/2025 5:10 PM EDT 05/07/2025 5:13 PM EDT Diane Guzman MD LAB POINT OF CARE T EST DOCKED DEVICE UNSOLICITED RESULTS Final Result Performing Organization Address City[facility] [facility] [place]/[facility] Co de Phone Number [facility] [address] [place] [address] * (ABNORMAL) POCT glucose meter (05/07/2025 12:04 PM EDT) Pathologist [facility] POCT Glucose 350(H) 74 - 99 mg/dL [...] Comment 05/07/2025 12:10 PM EDT [facility]ARE [facility] Dining Room Attendant ID Priyanka Negrete 05/07/20 12:10 PM EDT [facility] Device ID [id number] 05/07/2025 12:10 PM EDT [facility] Specimen Type POC Capillary 05/07/2025 12:10 PM EDT [facility] Blood Capillary blood specimen / Unknown 05/07/2025 12:04 PM EDT 05/07/2025 12:10 PM EDT Diane Guzman MD LAB POINT OF CARE T EST DOCKED DEVICE UNSOLICITED RESULTS Final Result Performing Organization Address City/[facility] [place]/[facility] Co de Phone Number [facility] [address] [place] [address] * (ABNORMAL) POCT glucose meter (05/07/2025 7:41 [...] Comment 05/07/2025 7:44 AM EDT [facility]ARE [facility] Dining Room Attendant ID Priyanka Negrete 05/07/20 7:44 AM EDT [facility] Device ID [id number] 05/07/2025 7:44 AM EDT [facility] Specimen Type POC Capillary 05/07/2025 7:44 AM EDT [facility] Blood Capillary blood specimen / Unknown 05/07/2025 7:41 AM EDT 05/07/2025 7:44 AM EDT Diane Guzman MD LAB POINT OF CARE T EST DOCKED DEVICE UNSOLICITED RESULTS Final Result Performing Organization Address City/[facility] [place]/ZIP Co de Phone Number [facility] [address] [place] [address] * (ABNORMAL) POCT glucose meter (05/07/2025 3:41 AM EDT) Pathologist [facility] POCT Glucose 407(H) 74 - 99 [...] Comment 05/07/2025 3:43 AM EDT [facility]ALTH[facility]ARE LAB Dining Room Attendant ID Yessenia Won 05/07/2025 3:43 AM EDT [facility] Device ID [id number] 05/07/2025 3:43 AM EDT HEALTHCARE LAB Specimen Type POC Capillary 05/07/2025 3:43 AM EDT [facility] Blood Capillary blood specimen / Unknown 05/07/2025 3:41 AM EDT 05/07/2025 3:43 AM EDT Diane Guzman MD LAB POINT OF CARE T EST DOCKED DEVICE UNSOLICITED RESULTS Final Result Performing Organization Address City/State/[facility] Co de Phone Number [facility] [address] [place] [address] * (ABNORMAL) POCT glucose meter (05/06/2025 8:01 PM EDT) [facility] POCT Glucose 324(H) 74 - 99 mg/dL [...] 05/06/2025 8:02 PM EDT [facility] Dining Room Attendant ID Yessenia Won 05/06/2025 8:02 PM EDT [facility] Device ID [id number] 05/06/2025 8:02 PM EDT [facility]ALTHCARE LAB Specimen Type POC Capillary 05/06/2025 8:02 PM EDT [facility] Blood Capillary blood specimen / Unknown 05/06/2025 8:01 PM EDT 05/06/2025 8:02 PM EDT Diane Guzman MD LAB POINT OF CARE T EST DOCKED DEVICE UNSOLICITED RESULTS Final Result Performing Organization Address City/[facility] [place]/ZIP Co de Phone Number [facility] [address] [place] [address] * (ABNORMAL) POCT glucose meter (05/06/2025 4:40 PM EDT) Pathologist [facility] POCT Glucose 212(H) 74 - 99 [...] Comment 05/06/2025 4:46 PM EDT [facility]ALTH[facility]ARE LAB Dining Room Attendant ID Shrerell Navarro 05/06/2025 4:46 PM EDT [facility]ARE [facility] Device ID [id number] 05/06/2025 4:46 PM EDT [facility] Specimen Type POC Capillary 05/06/2025 4:46 PM EDT [facility] Blood Capillary blood specimen / Unknown 05/06/2025 4:40 PM EDT 05/06/2025 4:46 PM EDT Diane Guzman MD LAB POINT OF CARE T EST DOCKED DEVICE UNSOLICITED RESULTS Final Result Performing Organization Address City/[facility] [place]/ZIP Co de Phone Number [facility] [address] [place] [address] * PSA, diagnostic (05/06/2025 12:27 PM EDT) PSA, Diagnostic, Serum 0.03 0.00 - 2.50 ng/mL 05/06/2025 1:10 PM EDT [facility] Blood Venous blood specimen / Unknown Venipuncture / Unknown 05/06/2025 12:27 PM EDT 05/06/2025 12:33 PM EDT Narrative [facility] - 05/06/2025 1:10 PM EDT Performed by Bella electrochemiluminescent immunoassay which is standardized against the PSA [place] Reference Standard (WHO 96/670). Results obtained with different test methods or kits cannot be used interchangeably. Diane Guzman MD LAB BLOOD ORDERABLES Final Result [facility] [address] [place] [address] * (ABNORMAL) POCT glucose meter (05/06/2025 11:28 AM EDT) [facility] POCT Glucose 337(H) 74 - 99 mg/dL [...] Comment 05/06/2025 11:30 AM EDT [facility]ALTHCARE LAB Dining Room Attendant ID Sherrell Navarro 05/06/2025 11:30 AM EDT [facility]ALTH[facility]ARE [facility] Device ID [id number] 05/06/2025 11:30 AM EDT [facility] Specimen Type POC Capillary 05/06/2025 11:30 AM EDT [facility] Blood Capillary blood specimen / Unknown 05/06/2025 11:28 AM EDT 05/06/2025 11:30 AM EDT Diane Guzman MD LAB POINT OF CARE T EST DOCKED DEVICE UNSOLICITED RESULTS Final Result Performing Organization Address City/[facility] [place]/ZIP Co de Phone Number [facility] [address] [place] [address] * (ABNORMAL) POCT glucose meter (05/06/2025 8:13 AM EDT) [facility] POCT Glucose 348(H) 74 - 99 mg/dL [...] Comment 05/06/2025 8:23 AM EDT [facility]ALTH[facility]ARE [facility] Dining Room Attendant ID Sherrell Navarro 05/06/2025 8:23 AM EDT [facility]ARE LAB Device ID [id number] 05/06/2025 8:23 AM EDT [facility] Specimen Type POC Capillary 05/06/2025 8:23 AM EDT [facility] Blood Capillary blood specimen / Unknown 05/06/2025 8:13 AM EDT 05/06/2025 8:23 AM EDT Diane Guzman MD LAB POINT OF CARE T EST DOCKED DEVICE UNSOLICITED RESULTS Final Result [facility] [address] [place] [address] * (ABNORMAL) POCT glucose meter (05/06/2025 3:09 AM EDT) [facility] POCT Glucose 364(H) 74 - 99 mg/dL [...] Comment 05/06/2025 3:11 AM EDT [facility]ALTH[facility]ARE [facility] Dining Room Attendant ID Won Casas 05/06/2025 3:11 AM EDT [facility] Device ID [id number] 05/06/2025 3:11 AM EDT [facility] Specimen Type POC Capillary 05/06/2025 3:11 AM EDT [facility] Blood Capillary blood specimen / Unknown 05/06/2025 3:09 AM EDT 05/06/2025 3:11 AM EDT Diane Guzman MD LAB POINT OF CARE T EST DOCKED DEVICE UNSOLICITED RESULTS Final Result Performing Organization Address [facility] [place]/[facility] Co de Phone Number [facility] [address] [place] [address] * (ABNORMAL) POCT glucose meter (05/05/2025 8:19 PM EDT) [facility] POCT Glucose 324(H) 74 - 99 mg/dL [...] Comment 05/05/2025 8:20 PM EDT [facility]ALTH[facility]ARE [facility] Dining Room Attendant ID Won Casas 05/05/2025 8:20 PM EDT [facility] LAB Device ID [id number] 05/05/2025 8:20 PM EDT [facility] Specimen Type POC Capillary 05/05/2025 8:20 PM EDT [facility] Blood Capillary blood specimen / Unknown 05/05/2025 8:19 PM EDT 05/05/2025 8:20 PM EDT Diane Guzman MD LAB POINT OF CARE T EST DOCKED DEVICE UNSOLICITED RESULTS Final Result Performing Organization Address City/[facility] [place]/ZIP Co de Phone Number [facility] [address] [place] [address] * (ABNORMAL) POCT glucose meter (05/05/2025 5:09 PM EDT) [facility] POCT Glucose 371(H) 74 - 99 mg/dL [...] Comment 05/05/2025 5:14 PM EDT [facility]ARE [facility] Dining Room Attendant ID Sherrell Navarro 05/05/2025 5:14 PM EDT [facility] Device ID [id number] 05/05/2025 5:14 PM EDT [facility] Specimen Type POC Capillary 05/05/2025 5:14 PM EDT [facility] Blood Capillary blood specimen / Unknown 05/05/2025 5:09 PM EDT 05/05/2025 5:14 PM EDT us Diane Guzman MD LAB POINT OF CARE T EST DOCKED DEVICE UNSOLICITED RESULTS Final Result [facility] [address] [place] [address] * (ABNORMAL) POCT glucose meter (05/05/2025 11:29 AM EDT) Pathologist [facility] POCT Glucose 292(H) 74 - 99 [...] Comment 05/05/2025 11:32 AM EDT [facility]ALTHCARE LAB Dining Room Attendant ID Sherrell Navarro 05/05/2025 11:32 AM EDT [facility] Device ID [id number] 05/05/2025 11:32 AM EDT [facility] Specimen Type POC Capillary 05/05/2025 11:32 AM EDT [facility] Blood Capillary blood specimen / Unknown 05/05/2025 11:29 AM EDT 05/05/2025 11:32 AM EDT us Diane Guzman MD LAB POINT OF CARE T EST DOCKED DEVICE UNSOLICITED RESULTS Final Result Performing Organization Address [facility] [place]/[facility] Co de Phone Number [facility] [address] [place] [address] * (ABNORMAL) POCT glucose meter (05/05/2025 7:55 AM EDT) [facility] POCT Glucose 290(H) 74 - 99 mg/dL [...] Comment 05/05/2025 7:57 AM EDT [facility]ALTHCARE LAB Dining Room Attendant ID RamonHosseinalexandra Black 05/05/2025 7:57 AM EDT [facility] Device ID [id number] 05/05/2025 7:57 AM EDT [facility]ALTH[facility]ARE [facility] Specimen Type POC Capillary 05/05/2025 7:57 AM EDT [facility] Blood Capillary blood specimen / Unknown 05/05/2025 7:55 AM EDT 05/05/2025 7:57 AM EDT Diane Guzman MD LAB POINT OF CARE T EST DOCKED DEVICE UNSOLICITED RESULTS Final Result Performing Organization Address [facility] [place]/[facility] de Phone Number [facility] [address] [place] [address] * (ABNORMAL) POCT glucose meter (05/04/2025 7:35 PM EDT) [facility] POCT Glucose 236(H) 74 - 99 mg/dL [...] 05/04/2025 7:37 PM EDT [facility] Dining Room Attendant ID Kaylin Barron 05/04/2025 7:37 PM EDT [facility] LAB Device ID [id number] 05/04/2025 7:37 PM EDT [facility] Specimen Type POC Capillary 05/04/2025 7:37 PM EDT [facility] Blood Capillary blood specimen / Unknown 05/04/2025 7:35 PM EDT 05/04/2025 7:37 PM EDT Diane Guzman MD LAB POINT OF CARE T EST DOCKED DEVICE UNSOLICITED RESULTS Final Result Performing Organization Address City/[facility] [place]/[facility] Co de Phone Number [facility] [address] [place] [address] * (ABNORMAL) POCT glucose meter (05/04/2025 4:51 PM EDT) [facility] POCT Glucose 233(H) 74 - 99 mg/dL [...] Comment 05/04/2025 4:53 PM EDT [facility]ARE [facility] Dining Room Attendant ID Araceli Doran 025 4:53 PM EDT [facility] Device ID [id number] 05/04/2025 4:53 PM EDT [facility] Specimen Type POC Capillary 05/04/2025 4:53 PM EDT [facility] Blood Capillary blood specimen / Unknown 05/04/2025 4:51 PM EDT 05/04/2025 4:53 PM EDT Diane Guzman MD LAB POINT OF CARE T EST DOCKED DEVICE UNSOLICITED RESULTS Final Result Performing Organization Address City/[facility] [place]/ZIP Co de Phone Number [facility] [address] [place] [address] * (ABNORMAL) POCT glucose meter (05/04/2025 11:51 AM EDT) [facility] POCT Glucose 271(H) 74 - 99 mg/dL [...] Comment 05/04/2025 11:56 AM EDT [facility] Dining Room Attendant ID Araceli Doran 025 11:56 AM EDT [facility]ALTH[facility]ARE [facility] Device ID [id number] 05/04/2025 11:56 AM EDT [facility] Specimen Type POC Capillary 05/04/2025 11:56 AM EDT [facility] Blood Capillary blood specimen / Unknown 05/04/2025 11:51 AM EDT 05/04/2025 11:56 AM EDT Diane Guzman MD LAB POINT OF CARE T EST DOCKED DEVICE UNSOLICITED RESULTS Final Result Performing Organization Address City/State/[facility] Co de Phone Number [facility] [address] [place] [address] * (ABNORMAL) POCT glucose meter (05/04/2025 8:09 AM EDT) [facility] POCT Glucose 259(H) 74 - 99 mg/dL [...] Comment 05/04/2025 8:17 AM EDT [facility]ARE [facility] Dining Room Attendant ID Araceli Doran 025 8:17 AM EDT HEALTHCARE LAB Device ID [id number] 05/04/2025 8:17 AM EDT [facility]ARE [facility] Specimen Type POC Capillary 05/04/2025 8:17 AM EDT [facility] Blood Capillary blood specimen / Unknown 05/04/2025 8:09 AM EDT 05/04/2025 8:17 AM EDT Diane Guzman MD LAB POINT OF CARE T EST DOCKED DEVICE UNSOLICITED RESULTS Final Result Performing Organization Address [facility] [place]/[facility] de Phone Number [facility] [address] [place] [address] * (ABNORMAL) POCT glucose meter (05/04/2025 4:44 AM EDT) [facility] POCT Glucose 335(H) 74 - 99 mg/dL [...] Comment 05/04/2025 4:46 AM EDT [facility]ARE [facility] Dining Room Attendant ID Kaylin Barron 05/04/2025 4:46 AM EDT [facility]ALTH[facility]ARE LAB Device ID [id number] 05/04/2025 4:46 AM EDT [facility] Specimen Type POC Capillary 05/04/2025 4:46 AM EDT [facility] Blood Capillary blood specimen / Unknown 05/04/2025 4:44 AM EDT 05/04/2025 4:46 AM EDT Diane Guzman MD LAB POINT OF CARE T EST DOCKED DEVICE UNSOLICITED RESULTS Final Result Performing Organization Address City/[facility] [place]/[facility] Co de Phone Number [facility] [address] [place] [address] * (ABNORMAL) POCT glucose meter (05/03/2025 7:27 PM EDT) Pathologist [facility] POCT Glucose 331(H) 74 - 99 mg/dL [...] Comment 05/03/2025 7:33 PM EDT [facility]ALTH[facility]ARE [facility] Dining Room Attendant ID Kaylin Barron 05/03/2025 7:33 PM EDT [facility]ALTH[facility]ARE LAB Device ID [id number] 05/03/2025 7:33 PM EDT [facility] Specimen Type POC Capillary 05/03/2025 7:33 PM EDT [facility] Blood Capillary blood specimen / Unknown 05/03/2025 7:27 PM EDT 05/03/2025 7:33 PM EDT us Diane Guzman MD LAB POINT OF CARE T EST DOCKED DEVICE UNSOLICITED RESULTS Final Result [facility] [address] [place] [address] * (ABNORMAL) Comprehensive metabolic panel (05/03/2025 6:22 PM EDT) Glucose, Plasma 290(H) 74 - 99 mg/dL 05/03/2025 7:13 PM EDT [facility] BUN, Plasma 14 7 - 21 mg/dL 05/03/2025 7:13 PM EDT [facility] Creatinine, Plasma 0.71 0.70 - 1.20 mg/dL 05/03/2025 7:13 PM EDT [facility] BUN/Creatinine Ratio 20 05/03/2025 7:13 PM EDT [facility] Sodium, Plasma 133(L) 136 - 145 mmol/L 05/03/2025 7:13 PM EDT [facility] Potassium, Plasma 3.6 3.6 - 4.9 mmol/L 05/03/2025 7:13 PM EDT [facility] Chloride, Plasma 87(L) 97 - 107 mmol/L 05/03/2025 7:13 PM EDT [facility] CO2, Plasma 37(H) 22 - 29 mmol/L 05/03/2025 7:13 PM EDT [facility] Anion Gap 9 6 - 16 mmol/L 05/03/2025 7:13 PM EDT [facility] Total Calcium, Plasma 9.4 8.9 - 10.2 mg/dL 05/03/2025 7:13 PM EDT [facility] Total Protein 8.0(H) 6.3 - 7.9 g/dL 05/03/2025 7:13 PM EDT [facility] Albumin, Plasma 3.6 3.5 - 5.2 g/dL 05/03/2025 7:13 PM EDT [facility] AST, Plasma 18 10 - 50 U/L 05/03/2025 7:13 PM EDT [facility] ALT, Plasma 12 10 - 50 U/L 05/03/2025 7:13 PM EDT [facility] Alkaline Phosphatase, Plasma 64 40 - 115 U/L 05/03/2025 7:13 PM EDT [facility] Total Bilirubin, Plasma 0.7 0.2 - 1.1 mg/dL 05/03/2025 7:13 PM EDT [facility] eGFRcr 113.9 mL/min/1.7 3m*2 05/03/2025 7:13 PM EDT [facility] Comment:Reported eGFRcr in m L/min/1.73m2 is based the CKD-EPI 2020 equation that does not use a race coefficient. Blood Venous blood specimen / Unknown Venipuncture / Unknown 05/03/2025 6:22 PM EDT 05/03/2025 6:38 PM EDT Diane Guzman MD LAB BLOOD ORDERABLES Final Result [facility] [address] [place] [address] * Creatine Kinase (CK), Total (05/03/2025 6:22 PM EDT) Creatine Kinase, Plasma 54 49 - 320 U/L 05/03/2025 7:13 PM EDT [facility] Blood Venous blood specimen / Unknown Venipuncture / Unknown 05/03/2025 6:22 PM EDT 05/03/2025 6:38 PM EDT us Diane Guzman MD LAB BLOOD ORDERABLES Final Result Performing Organization Address City/[facility] [place]/ZIP Co de Phone Number [facility] [address] [place] [address] * (ABNORMAL) POCT glucose meter (05/03/2025 5:30 [...] Comment 05/03/2025 5:33 PM EDT [facility]ALTHCARE LAB Dining Room Attendant ID Dunia Montgomery 05/03/2025 5:33 PM EDT HEALTHCARE LAB Device ID [id number] 05/03/2025 5:33 PM EDT [facility] Specimen Type POC Capillary 05/03/2025 5:33 PM EDT [facility] Blood Capillary blood specimen / Unknown 05/03/2025 5:30 PM EDT 05/03/2025 5:33 PM EDT Diane Guzman MD LAB POINT OF CARE T EST DOCKED DEVICE UNSOLICITED RESULTS Final Result Performing Organization Address City/[facility] [place]/[facility] Co de Phone Number [facility] [address] [place] [address] * (ABNORMAL) POCT glucose meter (05/03/2025 11:36 [...] Comment 05/03/2025 11:38 AM EDT [facility] Dining Room Attendant ID Kindra Cardoza 05/03/2025 11:38 AM EDT [facility]ALTH[facility] Device ID [id number] 05/03/2025 11:38 AM EDT [facility] Specimen Type POC Capillary 05/03/2025 11:38 AM EDT [facility] Blood Capillary blood specimen / Unknown 05/03/2025 11:36 AM EDT 05/03/2025 11:38 AM EDT Diane Guzman MD LAB POINT OF CARE T EST DOCKED DEVICE UNSOLICITED RESULTS Final Result Performing Organization Address City/[facility] [place]/[facility] Co de Phone Number [facility] [address] [place] [address] * (ABNORMAL) POCT glucose meter (05/03/2025 8:09 [...] Comment 05/03/2025 8:11 AM EDT [facility]ALTH[facility]ARE [facility] Dining Room Attendant ID Dunia Montgomery 05/03/2025 8:11 AM EDT [facility] Device ID [id number] 05/03/2025 8:11 AM EDT [facility] Specimen Type POC Capillary 05/03/2025 8:11 AM EDT [facility] Blood Capillary blood specimen / Unknown 05/03/2025 8:09 AM EDT 05/03/2025 8:11 AM EDT Diane Guzman MD LAB POINT OF CARE T EST DOCKED DEVICE UNSOLICITED RESULTS Final Result Performing Organization Address City/[facility] [place]/ZIP Co de Phone Number [facility] [address] [place] [address] * (ABNORMAL) POCT glucose meter (05/03/2025 3:37 AM EDT) Pathologist [facility] POCT Glucose 372(H) 74 - 99 [...] Comment 05/03/2025 3:40 AM EDT [facility]ALTH[facility]ARE LAB Dining Room Attendant ID Maribell Saeed 3:40 AM EDT HEALTHCARE LAB Device ID [id number] 05/03/2025 3:40 AM EDT [facility] Specimen Type POC Capillary 05/03/2025 3:40 AM EDT [facility] Blood Capillary blood specimen / Unknown 05/03/2025 3:37 AM EDT 05/03/2025 3:40 AM EDT us Diane Guzman MD LAB POINT OF CARE T EST DOCKED DEVICE UNSOLICITED RESULTS Final Result Performing Organization Address City/State/[facility] Co de Phone Number [facility] [address] [place] [id number] * (ABNORMAL) CBC and Differential (05/03/2025 3:16 AM EDT) [facility] WBC Count 6.86 3.70 - 10.30 10*3/uL LAB HEMATOLOGY METHOD 05/03/2025 3:33 AM EDT [facility] RBC Count 3.82(L) 4.60 - 6.10 10*6/uL LAB HEMATOLOGY METHOD 05/03/2025 3:33 AM EDT [facility] HGB 8.9(L) 13.7 - 17.5 g/dL LAB HEMATOLOGY METHOD 05/03/2025 3:33 AM EDT [facility] HCT 29.2(L) 40.0 - 51.0 % LAB HEMATOLOGY METHOD 05/03/2025 3:33 AM EDT [facility] Platelet Count 202 155 - 369 10*3/uL LAB HEMATOLOGY METHOD 05/03/2025 3:33 AM EDT [facility] MCV 76(L) 79 - 98 fL LAB HEMATOLOGY METHOD 05/03/2025 3:33 AM EDT [facility] MCH 23.3(L) 26.0 - 32.0 pg LAB HEMATOLOGY METHOD 05/03/2025 3:33 AM EDT [facility] MCHC 30.5(L) 30.7 - 35.5 g/dL LAB HEMATOLOGY METHOD 05/03/2025 3:33 AM EDT [facility] RDW 18.8(H) 11.5 - 14.5 % LAB HEMATOLOGY METHOD 05/03/2025 3:33 AM EDT [facility] MPV 9.1 8.8 - 12.5 fL LAB HEMATOLOGY METHOD 05/03/2025 3:33 AM EDT [facility] nRBC 0.0 <=0.0 per 100 WBCs LAB HEMATOLOGY METHOD 05/03/2025 3:33 AM EDT [facility] Differential Type Automated LAB HEMATOLOGY METHOD 05/03/2025 3:33 AM EDT [facility] Neutrophils % 70 % LAB HEMATOLOGY METHOD 05/03/2025 3:33 AM EDT [facility] Lymphocytes % 15 % LAB HEMATOLOGY METHOD 05/03/2025 3:33 AM EDT [facility] Monocytes % 9 % LAB HEMATOLOGY METHOD 05/03/2025 3:33 AM EDT [facility] Eosinophils % 5 % LAB HEMATOLOGY METHOD 05/03/2025 3:33 AM EDT [facility] Basophils % 0 % LAB HEMATOLOGY METHOD 05/03/2025 3:33 AM EDT [facility] Immature Granulocytes % 1 % LAB HEMATOLOGY METHOD 05/03/2025 3:33 AM EDT [facility] Neutrophils Absolute 4.85 1.60 - 6.10 10*3/uL LAB HEMATOLOGY METHOD 05/03/2025 3:33 AM EDT [facility] Lymphocytes Absolute 1.03(L) 1.20 - 3.90 10*3/uL LAB HEMATOLOGY METHOD 05/03/2025 3:33 AM EDT [facility] Monocytes Absolute 0.59 0.30 - 0.90 10*3/uL LAB HEMATOLOGY METHOD 05/03/2025 3:33 AM EDT [facility] Eosinophils Absolute 0.32 0.00 - 0.50 10*3/uL LAB HEMATOLOGY METHOD 05/03/2025 3:33 AM EDT [facility] Basophils Absolute 0.03 0.00 - 0.10 10*3/uL LAB HEMATOLOGY METHOD 05/03/2025 3:33 AM EDT [facility] Immature Granulocytes Absolute 0.04 0.00 - 0.06 10*3/uL LAB HEMATOLOGY METHOD 05/03/2025 3:33 AM EDT [facility] Blood Venous blood specimen / Unknown Venipuncture / Unknown 05/03/2025 3:16 AM EDT 05/03/2025 3:25 AM EDT Narrative [facility] - 05/03/2025 3:33 AM EDT Therapeutic decision making should be based on absolute values, rather than percentages. us Marjorie Myers MD LAB BLOOD ORDERABLES Final Resul t [facility] [address] [place] [address] * (ABNORMAL) Basic Metabolic Panel, Plasma (05/03/2025 3:16 AM EDT) Glucose, Plasma 399(H) 74 - 99 mg/dL 05/03/2025 4:02 AM EDT [facility] BUN, Plasma 15 7 - 21 mg/dL 05/03/2025 4:02 AM EDT [facility] Creatinine, Plasma 0.78 0.70 - 1.20 mg/dL 05/03/2025 4:02 AM EDT [facility] BUN/Creatinine Ratio 19 05/03/2025 4:02 AM EDT [facility] Sodium, Plasma 136 136 - 145 mmol/L 05/03/2025 4:02 AM EDT [facility] Potassium, Plasma 3.6 3.6 - 4.9 mmol/L 05/03/2025 4:02 AM EDT [facility] Chloride, Plasma 90(L) 97 - 107 mmol/L 05/03/2025 4:02 AM EDT [facility] CO2, Plasma 37(H) 22 - 29 mmol/L 05/03/2025 4:02 AM EDT [facility] Anion Gap 9 6 - 16 mmol/L 05/03/2025 4:02 AM EDT [facility] Total Calcium, Plasma 9.0 8.9 - 10.2 mg/dL 05/03/2025 4:02 AM EDT [facility] eGFRcr 110.7 mL/min/1.7 3m*2 05/03/2025 4:02 AM EDT [facility] Comment:Reported eGFRcr in m L/min/1.73m2 is based the CKD-EPI 2020 equation that does not use a race coefficient. Blood Venous blood specimen / Unknown Venipuncture / Unknown 05/03/2025 3:16 AM EDT 05/03/2025 3:24 AM EDT us Marjorie Myers MD LAB BLOOD ORDERABLES Final Resul t Performing Organization Address City/[facility]/ZIP Co de Phone Number [facility] [address] [place] [address] * (ABNORMAL) Magnesium, Plasma (05/03/2025 3:16 AM EDT) Magnesium, Plasma 1.7(L) 1.9 - 2.4 mg/dL 05/03/2025 4:02 AM EDT [facility] Blood Venous blood specimen / Unknown Venipuncture / Unknown 05/03/2025 3:16 AM EDT 05/03/2025 3:24 AM EDT us Marjorie Myers MD LAB BLOOD ORDERABLES Final Resul t [facility] [address] [place] [address] * Phosphorus, Plasma (05/03/2025 3:16 AM EDT) Phosphorus, Plasma 3.6 2.5 - 4.5 mg/dL 05/03/2025 4:02 AM EDT [facility] Blood Venous blood specimen / Unknown Venipuncture / Unknown 05/03/2025 3:16 AM EDT 05/03/2025 3:24 AM EDT Marjorie Myers MD LAB BLOOD ORDERABLES Final Resul t Performing Organization Address [facility] Co de Phone Number [facility] [address] [place] [address] * Hepatitis B Core Total Antibody IgG,IgM (05/03/2025 3:16 AM EDT) Hepatitis B Core Total Antibody IgG,IgM Negative Negative 05/03/2025 4:28 AM EDT [facility] Blood Venous blood specimen / Unknown Venipuncture / Unknown 05/03/2025 3:16 AM EDT 05/03/2025 3:24 AM EDT Diane Guzman MD LAB BLOOD ORDERABLES Final Result Performing Organization Address [facility] de Phone Number [facility] [address] [place] [address] * Hepatitis B Surface Antigen (05/03/2025 3:16 AM EDT) Hepatitis B Surf Antigen Negative Negative 05/03/2025 4:28 AM EDT [facility] Blood Venous blood specimen / Unknown Venipuncture / Unknown 05/03/2025 3:16 AM EDT 05/03/2025 3:24 AM EDT us Diane Guzman MD LAB BLOOD ORDERABLES Final Result Performing Organization Address [facility] Co de Phone Number [facility] [address] [place] [address] * Hepatitis B Surface Antibody, Quantitative (05/03/2025 3:16 AM EDT) Hepatitis B Surface Antibody, Quantitative <8.00 NonReactiv e: <8, Grayzone: 8 - <12, Reactive: >= 12 mIU/mL 05/03/2025 4:28 AM EDT [facility] Comment: Nonreactive. Individual is considered not immune to HBV infection. Blood Venous blood specimen / Unknown Venipuncture / Unknown 05/03/2025 3:16 AM EDT 05/03/2025 3:24 AM EDT Result Shannon Guzman MD LAB BLOOD ORDERABLES Final Result Performing Organization Address City/[facility]/ZIP Co de Phone Number [facility] [address] [place] [address] * Hepatitis A Antibody IgG (05/03/2025 3:16 AM EDT) [facility] Hepatitis A Antibody IgG Negative Negative 05/03/2025 4:28 AM EDT [facility] Blood Venous blood specimen / Unknown Venipuncture / Unknown 05/03/2025 3:16 AM EDT 05/03/2025 3:24 AM EDT Result Shannon Guzman MD LAB BLOOD ORDERABLES Final Result Performing Organization Address [facility] [place] [address] * (ABNORMAL) POCT glucose meter (05/02/2025 8:48 PM EDT) [facility] POCT Glucose 325(H) 74 - 99 mg/dL [...] 05/02/2025 8:50 PM EDT [facility] Dining Room Attendant ID Maribell Saeed 8:50 PM EDT [facility] Device ID [id number] 05/02/2025 8:50 PM EDT [facility] Specimen Type POC Capillary 05/02/2025 8:50 PM EDT [facility] Blood Capillary blood specimen / Unknown 05/02/2025 8:48 PM EDT 05/02/2025 8:50 PM EDT Result Shannon Guzman MD LAB POINT OF CARE T EST DOCKED DEVICE UNSOLICITED RESULTS Final Result Performing Organization Address City/[facility] Co de Phone Number [facility] [address] [place] [address] * (ABNORMAL) POCT glucose meter (05/02/2025 4:30 PM EDT) [facility] POCT Glucose 250(H) 74 - 99 mg/dL [...] Comment 05/02/2025 4:32 PM EDT [facility] Dining Room Attendant ID Sebastián Kenny 4:32 PM EDT [facility] Device ID [id number] 05/02/2025 4:32 PM EDT [facility] Specimen Type POC Capillary 05/02/2025 4:32 PM EDT [facility] Blood Capillary blood specimen / Unknown 05/02/2025 4:30 PM EDT 05/02/2025 4:32 PM EDT Diane Guzman MD LAB POINT OF CARE T EST DOCKED DEVICE UNSOLICITED RESULTS Final Result Performing Organization Address City/[facility] Co de Phone Number [facility] [address] [place] [address] * Nasopharyngeal Respiratory Panel (05/02/2025 1:05 PM EDT) [facility] Nasopharyngeal Respiratory PCR Interpretation Not Detected for all analytes Not Detected for all analytes 05/02/2025 3:14 PM EDT [facility] Swab Nasopharyngeal structure / Unknown Non-blood Collection / Unknown 05/02/2025 1:05 PM EDT 05/02/2025 1:12 PM EDT Narrative [facility] - 05/02/2025 3:14 PM EDT [...] Respiratory PCR Panel is performed using the [employer] instrument. This test is FDA approved for use with Nasopharyngeal swabs only. This test is used for clinical purposes. It should not be regarded as investigational or for research. The [facility] Clinical Microbiology Laboratory is certified under the Clinical Laboratory Improvement Amendments of 1988 (CLIA-88) as qualified to perform high complexity clinical laboratory testing. Diane Guzman MD LAB MICROBIOLOGY - GENERAL ORDERABLES Final Result [facility] [address] [place] [address] * (ABNORMAL) POCT glucose meter (05/02/2025 12:08 [...] Comment 05/02/2025 12:10 PM EDT [facility] Dining Room Attendant ID EfraínSebastián 12:10 PM EDT [facility] Device ID [id number] 05/02/2025 12:10 PM EDT [facility] Specimen Type POC Capillary 05/02/2025 12:10 PM EDT [facility] Blood Capillary blood specimen / Unknown 05/02/2025 12:08 PM EDT 05/02/2025 12:10 PM EDT Diane Guzman MD LAB POINT OF CARE T EST DOCKED DEVICE UNSOLICITED RESULTS Final Result Performing Organization Address City/[facility] Co de Phone Number [facility] [address] [place] [address] * (ABNORMAL) POCT glucose meter (05/02/2025 8:11 [...] for testing. Comment 05/02/2025 8:12 AM EDT [facility] Dining Room Attendant ID Sebastián Kenny 8:12 AM EDT [facility] Device ID [id number] 05/02/2025 8:12 AM EDT [facility] Specimen Type POC Capillary 05/02/2025 8:12 AM EDT [facility] Blood Capillary blood specimen / Unknown 05/02/2025 8:11 AM EDT 05/02/2025 8:12 AM EDT Diane Guzman MD LAB POINT OF CARE T EST DOCKED DEVICE UNSOLICITED RESULTS Final Result Performing Organization Address City/[facility] Co de Phone Number [facility] [address] [place] [address] * (ABNORMAL) POCT glucose meter (05/02/2025 4:01 [...] Comment 05/02/2025 4:03 AM EDT [facility] Dining Room Attendant ID Stella Coleman 05/02/20 4:03 AM EDT [facility] Device ID [id number] 05/02/2025 4:03 AM EDT [facility] Specimen Type POC Capillary 05/02/2025 4:03 AM EDT [facility] Blood Capillary blood specimen / Unknown 05/02/2025 4:01 AM EDT 05/02/2025 4:03 AM EDT us Marjorie Myers MD LAB POINT OF CARE TE ST DOCKED DEVICE UNSOLICITED RESULTS Final Result Performing Organization Address City/State/[facility] Co de Phone Number [facility] [address] [place] [id number] * (ABNORMAL) CBC and Differential (05/02/2025 3:10 AM EDT) WBC Count 7.39 3.70 - 10.30 10*3/uL LAB HEMATOLOGY METHOD 05/02/2025 3:23 AM EDT [facility] RBC Count 3.88(L) 4.60 - 6.10 10*6/uL LAB HEMATOLOGY METHOD 05/02/2025 3:23 AM EDT [facility] HGB 8.8(L) 13.7 - 17.5 g/dL LAB HEMATOLOGY METHOD 05/02/2025 3:23 AM EDT [facility] HCT 29.3(L) 40.0 - 51.0 % LAB HEMATOLOGY METHOD 05/02/2025 3:23 AM EDT [facility] Platelet Count 205 155 - 369 10*3/uL LAB HEMATOLOGY METHOD 05/02/2025 3:23 AM EDT [facility] MCV 76(L) 79 - 98 fL LAB HEMATOLOGY METHOD 05/02/2025 3:23 AM EDT [facility] MCH 22.7(L) 26.0 - 32.0 pg LAB HEMATOLOGY METHOD 05/02/2025 3:23 AM EDT [facility] MCHC 30.0(L) 30.7 - 35.5 g/dL LAB HEMATOLOGY METHOD 05/02/2025 3:23 AM EDT [facility] RDW 19.1(H) 11.5 - 14.5 % LAB HEMATOLOGY METHOD 05/02/2025 3:23 AM EDT [facility] MPV 8.5(L) 8.8 - 12.5 fL LAB HEMATOLOGY METHOD 05/02/2025 3:23 AM EDT [facility] nRBC 0.0 <=0.0 per 100 WBCs LAB HEMATOLOGY METHOD 05/02/2025 3:23 AM EDT [facility] Differential Type Automated LAB HEMATOLOGY METHOD 05/02/2025 3:23 AM EDT [facility] Neutrophils % 74 % LAB HEMATOLOGY METHOD 05/02/2025 3:23 AM EDT [facility] Lymphocytes % 13 % LAB HEMATOLOGY METHOD 05/02/2025 3:23 AM EDT [facility] Monocytes % 8 % LAB HEMATOLOGY METHOD 05/02/2025 3:23 AM EDT [facility] Eosinophils % 4 % LAB HEMATOLOGY METHOD 05/02/2025 3:23 AM EDT [facility] Basophils % 0 % LAB HEMATOLOGY METHOD 05/02/2025 3:23 AM EDT [facility] Immature Granulocytes % 1 % LAB HEMATOLOGY METHOD 05/02/2025 3:23 AM EDT [facility] Neutrophils Absolute 5.45 1.60 - 6.10 10*3/uL LAB HEMATOLOGY METHOD 05/02/2025 3:23 AM EDT [facility] Lymphocytes Absolute 0.96(L) 1.20 - 3.90 10*3/uL LAB HEMATOLOGY METHOD 05/02/2025 3:23 AM EDT [facility] Monocytes Absolute 0.62 0.30 - 0.90 10*3/uL LAB HEMATOLOGY METHOD 05/02/2025 3:23 AM EDT [facility] Eosinophils Absolute 0.30 0.00 - 0.50 10*3/uL LAB HEMATOLOGY METHOD 05/02/2025 3:23 AM EDT [facility] Basophils Absolute 0.01 0.00 - 0.10 10*3/uL LAB HEMATOLOGY METHOD 05/02/2025 3:23 AM EDT [facility] Immature Granulocytes Absolute 0.05 0.00 - 0.06 10*3/uL LAB HEMATOLOGY METHOD 05/02/2025 3:23 AM EDT [facility] Blood Venous blood specimen / Unknown Venipuncture / Unknown 05/02/2025 3:10 AM EDT 05/02/2025 3:14 AM EDT Narrative [facility] - 05/02/2025 3:23 AM EDT Therapeutic decision making should be based on absolute values, rather than percentages. us Marjorie Myers MD LAB BLOOD ORDERABLES Final Resul t [facility] [address] [place] [address] * (ABNORMAL) Basic Metabolic Panel, Plasma (05/02/2025 3:10 AM EDT) Glucose, Plasma 358(H) 74 - 99 mg/dL 05/02/2025 3:45 AM EDT [facility] BUN, Plasma 12 7 - 21 mg/dL 05/02/2025 3:45 AM EDT [facility] Creatinine, Plasma 0.73 0.70 - 1.20 mg/dL 05/02/2025 3:45 AM EDT [facility] BUN/Creatinine Ratio 16 05/02/2025 3:45 AM EDT [facility] Sodium, Plasma 134(L) 136 - 145 mmol/L 05/02/2025 3:45 AM EDT [facility] Potassium, Plasma 3.3(L) 3.6 - 4.9 mmol/L 05/02/2025 3:45 AM EDT [facility] Chloride, Plasma 90(L) 97 - 107 mmol/L 05/02/2025 3:45 AM EDT [facility] CO2, Plasma 37(H) 22 - 29 mmol/L 05/02/2025 3:45 AM EDT [facility] Anion Gap 7 6 - 16 mmol/L 05/02/2025 3:45 AM EDT [facility] Total Calcium, Plasma 8.7(L) 8.9 - 10.2 mg/dL 05/02/2025 3:45 AM EDT [facility] eGFRcr 112.9 mL/min/1.7 3m*2 05/02/2025 3:45 AM EDT [facility] Comment:Reported eGFRcr in m L/min/1.73m2 is based the CKD-EPI 2020 equation that does not use a race coefficient. Blood Venous blood specimen / Unknown Venipuncture / Unknown 05/02/2025 3:10 AM EDT 05/02/2025 3:15 AM EDT us Marjorie Myesr MD LAB BLOOD ORDERABLES Final Resul t Performing Organization Address City/[facility]/ZIP Co de Phone Number [facility] [address] [place] [address] * (ABNORMAL) Magnesium, Plasma (05/02/2025 3:10 AM EDT) Magnesium, Plasma 1.6(L) 1.9 - 2.4 mg/dL 05/02/2025 3:45 AM EDT [facility] Blood Venous blood specimen / Unknown Venipuncture / Unknown 05/02/2025 3:10 AM EDT 05/02/2025 3:15 AM EDT us Marjorie Myers MD LAB BLOOD ORDERABLES Final Resul t Performing Organization Address [facility] [place] [address] * Phosphorus, Plasma (05/02/2025 3:10 AM EDT) Phosphorus, Plasma 3.0 2.5 - 4.5 mg/dL 05/02/2025 3:45 AM EDT [facility] Blood Venous blood specimen / Unknown Venipuncture / Unknown 05/02/2025 3:10 AM EDT 05/02/2025 3:15 AM EDT us Marjorie Myers MD LAB BLOOD ORDERABLES Final Resul t Performing Organization Address City/[facility] [place] [address] * Creatine Kinase (CK), Total (05/02/2025 3:10 AM EDT) Creatine Kinase, Plasma 50 49 - 320 U/L 05/02/2025 3:45 AM EDT [facility] Blood Venous blood specimen / Unknown Venipuncture / Unknown 05/02/2025 3:10 AM EDT 05/02/2025 3:15 AM EDT Marjorie Myers MD LAB BLOOD ORDERABLES Final Resul t Performing Organization Address City/[facility]/ZIP Co de Phone Number [facility] [address] [place] [address] * (ABNORMAL) POCT glucose meter (05/01/2025 8:26 [...] Comment 05/01/2025 8:27 PM EDT [facility] Dining Room Attendant ID Stella Coleman 05/01/20 8:27 PM EDT [facility] Device ID [id number] 05/01/2025 8:27 PM EDT [facility] Specimen Type POC Capillary 05/01/2025 8:27 PM EDT [facility] Blood Capillary blood specimen / Unknown 05/01/2025 8:26 PM EDT 05/01/2025 8:27 PM EDT us Marjorie Myers MD LAB POINT OF CARE TE ST DOCKED DEVICE UNSOLICITED RESULTS Final Result [facility] [address] [place] [address] * (ABNORMAL) POCT glucose meter (05/01/2025 5:55 [...] Comment 05/01/2025 5:57 PM EDT [facility] Dining Room Attendant ID Sebastián Kenny Amarjit 5:57 PM EDT [facility] Device ID [id number] 05/01/2025 5:57 PM EDT [facility] Specimen Type POC Capillary 05/01/2025 5:57 PM EDT [facility] Blood Capillary blood specimen / Unknown 05/01/2025 5:55 PM EDT 05/01/2025 5:57 PM EDT us Marjorie Myers MD LAB POINT OF CARE TE ST DOCKED DEVICE UNSOLICITED RESULTS Final Result Performing Organization Address City/State/[facility] Co de Phone Number [facility] [address] [place] [address] * (ABNORMAL) POCT glucose meter (05/01/2025 11:51 [...] 05/01/2025 11:53 AM EDT [facility] Dining Room Attendant ID Sebastián Kenny Amarjit 11:53 AM EDT [facility] Device ID [id number] 05/01/2025 11:53 AM EDT [facility] Specimen Type POC Capillary 05/01/2025 11:53 AM EDT [facility] Blood Capillary blood specimen / Unknown 05/01/2025 11:51 AM EDT 05/01/2025 11:53 AM EDT us Marjorie Myers MD LAB POINT OF CARE TE ST DOCKED DEVICE UNSOLICITED RESULTS Final Result Performing Organization Address City/[facility] Co de Phone Number [facility] [address] [place] [address] * (ABNORMAL) POCT glucose meter (05/01/2025 9:13 [...] for testing. Comment 05/01/2025 9:15 AM EDT [facility] Dining Room Attendant ID Francisco Javier Martin 05/01/2025 9:15 AM EDT [facility] Device ID [id number] 05/01/2025 9:15 AM EDT [facility] Specimen Type POC Capillary 05/01/2025 9:15 AM EDT [facility] Blood Capillary blood specimen / Unknown 05/01/2025 9:13 AM EDT 05/01/2025 9:15 AM EDT Marjorie Myers MD LAB POINT OF CARE TE ST DOCKED DEVICE UNSOLICITED RESULTS Final Result Performing Organization Address City/[facility] Co de Phone Number [facility] [address] [place] [address] * Surgical Pathology Exam (05/01/2025 8:13 AM EDT) Case Report Surgical Pathology Case: [id number] Authorizing Provider: Mary Vicente MD Collected: 05/01/2025 0813 Ordering Location: [facility] Received: 05/01/2025 0917 Pathologist: Vidya Ly MD Specimens: A) - Toe, Right, R 5th toe B) - Toe, Right, R 5th toe margin 05/09/2025 9:56 AM EDT [facility] Correction History Case amended to provide diagnosis after final decal sections received 05/09/2025 9:56 AM EDT [facility] Comment:These results have b een appended to a previously final verified report. Final Diagnosis A. RIGHT FIFTH TOE, AMPUTATION: - ULCER WITH SUPPURATIVE INFLAMMATION, GANGRENOUS NECROSIS, AND UNDERLYING ACUTE OSTEOMYELITIS. B. RIGHT FIFTH TOE MARGIN, RESECTION: - NO ACUTE OSTEOMYELITIS IDENTIFIED. 05/09/2025 9:56 AM EDT [facility] Amendment electronically signed by Vidya Ly MD on 05/09/2025 at 0956 EDT at 1233 EDT Comment:Corrected result: Pr eviously reported as [Previous value contains rich text formatting which cannot be displayed here] (see Result History) on 05/05/2025 at 1233 EDT. 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 R 5TH [...] The wound extends into the underlying bone. Social Worker Masters sections are submitted as follows: A1-A2: Necrotic lateral skin A3: Bone underlying gaping wound, following decalcification A4: Bone margin, following decalcification [facility] B. R 5TH TOE MARGIN The specimen is received fresh and placed in formalin, labeled R 5th toe MARGIN , and consists of a 2.8 x 2.8 x 0.6 cm aggregate of hemorrhagic bony fragments. The specimen is entirely submitted in cassette B1, following decalcification. Cold Time: 25m BLAS Kwok ([facility]) 05/09/2025 9:56 AM EDT [facility] Note: 05/09/2025 9:56 AM EDT [facility] Comment:Corrected result: Pr eviously reported [...] Edited Result - Final Performing Organization Address City/[facility]/ZIP Co de Phone Number [facility] [address] [place] [address] * Type and Screen (05/01/2025 6:49 AM [...] ORDERA BLES Final Result Performing Organization Address [facility] Co de Phone Number BLOOD BANK [address] [place] [address], * (ABNORMAL) POCT glucose meter (05/01/2025 6:48 AM EDT) POCT Glucose 222(H) 74 - 99 mg/dL 05/01/2025 6:50 AM EDT [facility] Comment:Accuracy of a glucos e result [...] Comment 05/01/2025 6:50 AM EDT [facility] Dining Room Attendant ID Emelina Romero 6:50 AM EDT [facility] Device ID [id number] 05/01/2025 6:50 AM EDT [facility] Specimen Type POC Venous 05/01/2025 6:50 AM EDT [facility] Blood Venous blood specimen / Unknown 05/01/2025 6:48 AM EDT 05/01/2025 6:50 AM EDT us Marjorie Myers MD LAB POINT OF CARE TE ST DOCKED DEVICE UNSOLICITED RESULTS Final Result Performing Organization Address City/[facility]/ZIP Co de Phone Number [facility] [address] [place] [address] * Creatine Kinase (CK), Total (05/01/2025 2:14 AM EDT) Creatine Kinase, Plasma 60 49 - 320 U/L 05/01/2025 2:53 AM EDT [facility] Blood Venous blood specimen / Unknown Venipuncture / Unknown 05/01/2025 2:14 AM EDT 05/01/2025 2:26 AM EDT us Marjorie Myers MD LAB BLOOD ORDERABLES Final Resul t [facility] [address] [place] [address] * (ABNORMAL) CBC and Differential (05/01/2025 2:14 AM EDT) WBC Count 6.96 3.70 - 10.30 10*3/uL LAB HEMATOLOGY METHOD 05/01/2025 2:37 AM EDT [facility] RBC Count 4.23(L) 4.60 - 6.10 10*6/uL LAB HEMATOLOGY METHOD 05/01/2025 2:37 AM EDT [facility] HGB 9.8(L) 13.7 - 17.5 g/dL LAB HEMATOLOGY METHOD 05/01/2025 2:37 AM EDT [facility] HCT 32.5(L) 40.0 - 51.0 % LAB HEMATOLOGY METHOD 05/01/2025 2:37 AM EDT [facility] Platelet Count 218 155 - 369 10*3/uL LAB HEMATOLOGY METHOD 05/01/2025 2:37 AM EDT [facility] MCV 77(L) 79 - 98 fL LAB HEMATOLOGY METHOD 05/01/2025 2:37 AM EDT [facility] MCH 23.2(L) 26.0 - 32.0 pg LAB HEMATOLOGY METHOD 05/01/2025 2:37 AM EDT [facility] MCHC 30.2(L) 30.7 - 35.5 g/dL LAB HEMATOLOGY METHOD 05/01/2025 2:37 AM EDT [facility] RDW 19.1(H) 11.5 - 14.5 % LAB HEMATOLOGY METHOD 05/01/2025 2:37 AM EDT [facility] MPV 8.4(L) 8.8 - 12.5 fL LAB HEMATOLOGY METHOD 05/01/2025 2:37 AM EDT [facility] nRBC 0.0 <=0.0 per 100 WBCs LAB HEMATOLOGY METHOD 05/01/2025 2:37 AM EDT [facility] Differential Type Automated LAB HEMATOLOGY METHOD 05/01/2025 2:37 AM EDT [facility] Neutrophils % 76 % LAB HEMATOLOGY METHOD 05/01/2025 2:37 AM EDT [facility] Lymphocytes % 11 % LAB HEMATOLOGY METHOD 05/01/2025 2:37 AM EDT [facility] Monocytes % 8 % LAB HEMATOLOGY METHOD 05/01/2025 2:37 AM EDT [facility] Eosinophils % 4 % LAB HEMATOLOGY METHOD 05/01/2025 2:37 AM EDT [facility] Basophils % 0 % LAB HEMATOLOGY METHOD 05/01/2025 2:37 AM EDT [facility] Immature Granulocytes % 1 % LAB HEMATOLOGY METHOD 05/01/2025 2:37 AM EDT [facility] Neutrophils Absolute 5.26 1.60 - 6.10 10*3/uL LAB HEMATOLOGY METHOD 05/01/2025 2:37 AM EDT [facility] Lymphocytes Absolute 0.79(L) 1.20 - 3.90 10*3/uL LAB HEMATOLOGY METHOD 05/01/2025 2:37 AM EDT [facility] Monocytes Absolute 0.57 0.30 - 0.90 10*3/uL LAB HEMATOLOGY METHOD 05/01/2025 2:37 AM EDT [facility] Eosinophils Absolute 0.28 0.00 - 0.50 10*3/uL LAB HEMATOLOGY METHOD 05/01/2025 2:37 AM EDT [facility] Basophils Absolute 0.02 0.00 - 0.10 10*3/uL LAB HEMATOLOGY METHOD 05/01/2025 2:37 AM EDT [facility] Immature Granulocytes Absolute 0.04 0.00 - 0.06 10*3/uL LAB HEMATOLOGY METHOD 05/01/2025 2:37 AM EDT [facility] Blood Venous blood specimen / Unknown Venipuncture / Unknown 05/01/2025 2:14 AM EDT 05/01/2025 2:26 AM EDT Narrative [facility] - 05/01/2025 2:37 AM EDT Therapeutic decision making should be based on absolute values, rather than percentages. Marjorie Myers MD LAB BLOOD ORDERABLES Final Resul t [facility] [address] [place] [address] * (ABNORMAL) Basic Metabolic Panel, Plasma (05/01/2025 2:14 AM EDT) Glucose, Plasma 266(H) 74 - 99 mg/dL 05/01/2025 2:53 AM EDT [facility] BUN, Plasma 9 7 - 21 mg/dL 05/01/2025 2:53 AM EDT [facility] Creatinine, Plasma 0.71 0.70 - 1.20 mg/dL 05/01/2025 2:53 AM EDT [facility] BUN/Creatinine Ratio 13 05/01/2025 2:53 AM EDT [facility] Sodium, Plasma 137 136 - 145 mmol/L 05/01/2025 2:53 AM EDT [facility] Potassium, Plasma 3.4(L) 3.6 - 4.9 mmol/L 05/01/2025 2:53 AM EDT [facility] Chloride, Plasma 91(L) 97 - 107 mmol/L 05/01/2025 2:53 AM EDT [facility] CO2, Plasma 36(H) 22 - 29 mmol/L 05/01/2025 2:53 AM EDT [facility] Anion Gap 10 6 - 16 mmol/L 05/01/2025 2:53 AM EDT [facility] Total Calcium, Plasma 8.6(L) 8.9 - 10.2 mg/dL 05/01/2025 2:53 AM EDT [facility] eGFRcr 113.9 mL/min/1.7 3m*2 05/01/2025 2:53 AM EDT [facility] Comment:Reported eGFRcr in m L/min/1.73m2 is based the CKD-EPI 2020 equation that does not use a race coefficient. Blood Venous blood specimen / Unknown Venipuncture / Unknown 05/01/2025 2:14 AM EDT 05/01/2025 2:26 AM EDT Marjorie Myers MD LAB BLOOD ORDERABLES Final Resul t Performing Organization Address City/[facility]/ZIP Co de Phone Number [facility] [address] [place] [address] * (ABNORMAL) Magnesium, Plasma (05/01/2025 2:14 AM EDT) Magnesium, Plasma 1.8(L) 1.9 - 2.4 mg/dL 05/01/2025 2:53 AM EDT [facility] Blood Venous blood specimen / Unknown Venipuncture / Unknown 05/01/2025 2:14 AM EDT 05/01/2025 2:26 AM EDT us Marjorie Myers MD LAB BLOOD ORDERABLES Final Resul t Performing Organization Address City/[facility]/ZIP Co de Phone Number [facility] [address] [place] [address] * Phosphorus, Plasma (05/01/2025 2:14 AM EDT) Pathologist [facility] Phosphorus, Plasma 3.0 2.5 - 4.5 mg/dL 05/01/2025 2:53 AM EDT [facility] Blood Venous blood specimen / Unknown Venipuncture / Unknown 05/01/2025 2:14 AM EDT 05/01/2025 2:26 AM EDT us Marjorie Myers MD LAB BLOOD ORDERABLES Final Resul t [facility] [address] [place] [address] * (ABNORMAL) POCT glucose meter (04/30/2025 8:21 PM EDT) [facility] POCT Glucose 226(H) 74 - 99 mg/dL [...] 04/30/2025 8:23 PM EDT [facility] Dining Room Attendant ID Sandra Perez 04/30/20 25 8:23 PM EDT [facility] Device ID [id number] 04/30/2025 8:23 PM EDT [facility] Specimen Type POC Capillary 04/30/2025 8:23 PM EDT [facility] Blood Capillary blood specimen / Unknown 04/30/2025 8:21 PM EDT 04/30/2025 8:23 PM EDT us Marjorie Myers MD LAB POINT OF CARE TE ST DOCKED DEVICE UNSOLICITED RESULTS Final Result [facility] [address] [place] [address] * (ABNORMAL) POCT glucose meter (04/30/2025 4:19 PM EDT) [facility] POCT Glucose 173(H) 74 - 99 mg/dL [...] 04/30/2025 4:54 PM EDT [facility] Dining Room Attendant ID Priyanka Negrete 04/30/20 4:54 PM EDT [facility] Device ID [id number] 04/30/2025 4:54 PM EDT [facility] Specimen Type POC Capillary 04/30/2025 4:54 PM EDT [facility] Blood Capillary blood specimen / Unknown 04/30/2025 4:19 PM EDT 04/30/2025 4:54 PM EDT Marjorie Myers MD LAB POINT OF CARE TE ST DOCKED DEVICE UNSOLICITED RESULTS Final Result [facility] [address] [place] [address] * (ABNORMAL) POCT glucose meter (04/30/2025 12:11 PM EDT) [facility] POCT Glucose 226(H) 74 - 99 mg/dL [...] 04/30/2025 12:50 PM EDT [facility] Dining Room Attendant ID Priyanka Negrete 04/30/20 12:50 PM EDT [facility] Device ID [id number] 04/30/2025 12:50 PM EDT [facility] Specimen Type POC Capillary 04/30/2025 12:50 PM EDT [facility] Blood Capillary blood specimen / Unknown 04/30/2025 12:11 PM EDT 04/30/2025 12:50 PM EDT Marjorie Myers MD LAB POINT OF CARE TE ST DOCKED DEVICE UNSOLICITED RESULTS Final Result Performing Organization Address City/[facility] Co de Phone Number [facility] [address] [place] [address] * (ABNORMAL) POCT glucose meter (04/30/2025 8:18 AM EDT) [facility] POCT Glucose 212(H) 74 - 99 mg/dL [...] Comment 04/30/2025 8:55 AM EDT [facility] Dining Room Attendant ID Priyanka Negrete 04/30/20 8:55 AM EDT [facility] Device ID [id number] 04/30/2025 8:55 AM EDT [facility] Specimen Type POC Capillary 04/30/2025 8:55 AM EDT [facility] Blood Capillary blood specimen / Unknown 04/30/2025 8:18 AM EDT 04/30/2025 8:55 AM EDT Marjorie Myers MD LAB POINT OF CARE TE ST DOCKED DEVICE UNSOLICITED RESULTS Final Result Performing Organization Address City/[facility]/ZIP Co de Phone Number [facility] [address] [place] [address] * (ABNORMAL) CBC and Differential (04/30/2025 3:19 AM EDT) [facility] WBC Count 8.84 3.70 - 10.30 10*3/uL LAB HEMATOLOGY METHOD 04/30/2025 3:35 AM EDT [facility] RBC Count 4.31(L) 4.60 - 6.10 10*6/uL LAB HEMATOLOGY METHOD 04/30/2025 3:35 AM EDT [facility] HGB 9.6(L) 13.7 - 17.5 g/dL LAB HEMATOLOGY METHOD 04/30/2025 3:35 AM EDT [facility] HCT 32.6(L) 40.0 - 51.0 % LAB HEMATOLOGY METHOD 04/30/2025 3:35 AM EDT [facility] Platelet Count 245 155 - 369 10*3/uL LAB HEMATOLOGY METHOD 04/30/2025 3:35 AM EDT [facility] MCV 76(L) 79 - 98 fL LAB HEMATOLOGY METHOD 04/30/2025 3:35 AM EDT [facility] MCH 22.3(L) 26.0 - 32.0 pg LAB HEMATOLOGY METHOD 04/30/2025 3:35 AM EDT [facility] MCHC 29.4(L) 30.7 - 35.5 g/dL LAB HEMATOLOGY METHOD 04/30/2025 3:35 AM EDT [facility] RDW 19.1(H) 11.5 - 14.5 % LAB HEMATOLOGY METHOD 04/30/2025 3:35 AM EDT [facility] MPV 8.5(L) 8.8 - 12.5 fL LAB HEMATOLOGY METHOD 04/30/2025 3:35 AM EDT [facility] nRBC 0.0 <=0.0 per 100 WBCs LAB HEMATOLOGY METHOD 04/30/2025 3:35 AM EDT [facility] Differential Type Automated LAB HEMATOLOGY METHOD 04/30/2025 3:35 AM EDT [facility] Neutrophils % 78 % LAB HEMATOLOGY METHOD 04/30/2025 3:35 AM EDT [facility] Lymphocytes % 11 % LAB HEMATOLOGY METHOD 04/30/2025 3:35 AM EDT [facility] Monocytes % 7 % LAB HEMATOLOGY METHOD 04/30/2025 3:35 AM EDT [facility] Eosinophils % 3 % LAB HEMATOLOGY METHOD 04/30/2025 3:35 AM EDT [facility] Basophils % 0 % LAB HEMATOLOGY METHOD 04/30/2025 3:35 AM EDT [facility] Immature Granulocytes % 1 % LAB HEMATOLOGY METHOD 04/30/2025 3:35 AM EDT [facility] Neutrophils Absolute 6.90(H) 1.60 - 6.10 10*3/uL LAB HEMATOLOGY METHOD 04/30/2025 3:35 AM EDT [facility] Lymphocytes Absolute 0.95(L) 1.20 - 3.90 10*3/uL LAB HEMATOLOGY METHOD 04/30/2025 3:35 AM EDT [facility] Monocytes Absolute 0.64 0.30 - 0.90 10*3/uL LAB HEMATOLOGY METHOD 04/30/2025 3:35 AM EDT [facility] Eosinophils Absolute 0.29 0.00 - 0.50 10*3/uL LAB HEMATOLOGY METHOD 04/30/2025 3:35 AM EDT [facility] Basophils Absolute 0.02 0.00 - 0.10 10*3/uL LAB HEMATOLOGY METHOD 04/30/2025 3:35 AM EDT [facility] Immature Granulocytes Absolute 0.04 0.00 - 0.06 10*3/uL LAB HEMATOLOGY METHOD 04/30/2025 3:35 AM EDT [facility] Blood Venous blood specimen / Unknown Venipuncture / Unknown 04/30/2025 3:19 AM EDT 04/30/2025 3:26 AM EDT Narrative [facility] - 04/30/2025 3:35 AM EDT Therapeutic decision making should be based on absolute values, rather than percentages. us Marjorie Myers MD LAB BLOOD ORDERABLES Final Resul t [facility] [address] [place] [address] * (ABNORMAL) Basic Metabolic Panel, Plasma (04/30/2025 3:19 AM EDT) Glucose, Plasma 254(H) 74 - 99 mg/dL 04/30/2025 3:56 AM EDT [facility] BUN, Plasma 11 7 - 21 mg/dL 04/30/2025 3:56 AM EDT [facility] Creatinine, Plasma 0.77 0.70 - 1.20 mg/dL 04/30/2025 3:56 AM EDT [facility] BUN/Creatinine Ratio 14 04/30/2025 3:56 AM EDT [facility] Sodium, Plasma 137 136 - 145 mmol/L 04/30/2025 3:56 AM EDT [facility] Potassium, Plasma 3.3(L) 3.6 - 4.9 mmol/L 04/30/2025 3:56 AM EDT [facility] Chloride, Plasma 91(L) 97 - 107 mmol/L 04/30/2025 3:56 AM EDT [facility] CO2, Plasma 36(H) 22 - 29 mmol/L 04/30/2025 3:56 AM EDT [facility] Anion Gap 10 6 - 16 mmol/L 04/30/2025 3:56 AM EDT [facility] Total Calcium, Plasma 8.7(L) 8.9 - 10.2 mg/dL 04/30/2025 3:56 AM EDT [facility] eGFRcr 111.1 mL/min/1.7 3m*2 04/30/2025 3:56 AM EDT [facility] Comment:Reported eGFRcr in m L/min/1.73m2 is based the CKD-EPI 2020 equation that does not use a race coefficient. Blood Venous blood specimen / Unknown Venipuncture / Unknown 04/30/2025 3:19 AM EDT 04/30/2025 3:26 AM EDT us Marjorie Myers MD LAB BLOOD ORDERABLES Final Resul t [facility] [address] [place] [address] * (ABNORMAL) Magnesium, Plasma (04/30/2025 3:19 AM EDT) Magnesium, Plasma 1.5(L) 1.9 - 2.4 mg/dL 04/30/2025 3:56 AM EDT [facility] Blood Venous blood specimen / Unknown Venipuncture / Unknown 04/30/2025 3:19 AM EDT 04/30/2025 3:26 AM EDT us Marjorie Myers MD LAB BLOOD ORDERABLES Final Resul t [facility] [address] [place] [address] * Phosphorus, Plasma (04/30/2025 3:19 AM EDT) Pathologist [facility] Phosphorus, Plasma 2.7 2.5 - 4.5 mg/dL 04/30/2025 3:56 AM EDT [facility] Blood Venous blood specimen / Unknown Venipuncture / Unknown 04/30/2025 3:19 AM EDT 04/30/2025 3:26 AM EDT us Marjorie Myers MD LAB BLOOD ORDERABLES Final Resul t Performing Organization Address [facility] Co de Phone Number [facility] [address] [place] [address] * (ABNORMAL) POCT glucose meter (04/29/2025 7:38 PM EDT) [facility] POCT Glucose 191(H) 74 - 99 mg/dL [...] 04/29/2025 9:20 PM EDT [facility] Dining Room Attendant ID Ervin Du V 025 9:20 PM EDT [facility] Device ID [id number] 04/29/2025 9:20 PM EDT [facility] Specimen Type POC Capillary 04/29/2025 9:20 PM EDT [facility] Blood Capillary blood specimen / Unknown 04/29/2025 7:38 PM EDT 04/29/2025 9:20 PM EDT us Marjorie Myers MD LAB POINT OF CARE TE ST DOCKED DEVICE UNSOLICITED RESULTS Final Result Performing Organization Address City/[facility]/ZIP Co de Phone Number [facility] [address] [place] [address] * (ABNORMAL) POCT glucose meter (04/29/2025 5:21 PM EDT) Pathologist [facility] POCT Glucose 241(H) 74 - 99 [...] Comment 04/29/2025 5:23 PM EDT [facility] Dining Room Attendant ID Rocio Dozier 04/29/20 5:23 PM EDT [facility] Device ID [id number] 04/29/2025 5:23 PM EDT [facility] Specimen Type POC Capillary 04/29/2025 5:23 PM EDT [facility] Blood Capillary blood specimen / Unknown 04/29/2025 5:21 PM EDT 04/29/2025 5:23 PM EDT Marjorie Myers MD LAB POINT OF CARE TE ST DOCKED DEVICE UNSOLICITED RESULTS Final Result Performing Organization Address City/State/[facility] Co de Phone Number [facility] [address] [place] [address] * (ABNORMAL) POCT glucose meter (04/29/2025 11:15 AM EDT) Pathologist [facility] POCT Glucose 204(H) 74 - 99 [...] 04/29/2025 11:17 AM EDT [facility] Dining Room Attendant ID Rocio Dozier 04/29/20 11:17 AM EDT [facility] Device ID [id number] 04/29/2025 11:17 AM EDT [facility] Specimen Type POC Capillary 04/29/2025 11:17 AM EDT [facility] Blood Capillary blood specimen / Unknown 04/29/2025 11:15 AM EDT 04/29/2025 11:17 AM EDT Marjorie Myers MD LAB POINT OF CARE TE ST DOCKED DEVICE UNSOLICITED RESULTS Final Result Performing Organization Address City/[facility]/ZIP Co de Phone Number [facility] [address] [place] [address] * (ABNORMAL) POCT glucose meter (04/29/2025 7:13 [...] for testing. Comment 04/29/2025 7:14 AM EDT [facility] Dining Room Attendant ID Rocio Dozier 04/29/20 7:14 AM EDT [facility] Device ID [id number] 04/29/2025 7:14 AM EDT [facility] Specimen Type POC Capillary 04/29/2025 7:14 AM EDT [facility] Blood Capillary blood specimen / Unknown 04/29/2025 7:13 AM EDT 04/29/2025 7:14 AM EDT Marjorie Myers MD LAB POINT OF CARE TE ST DOCKED DEVICE UNSOLICITED RESULTS Final Result [facility] [address] [place] [address] * Folate (04/29/2025 3:04 AM EDT) Folate, Serum 10.5 >4.6 ng/mL 04/29/2025 4:05 AM EDT [facility] Blood Venous blood specimen / Unknown Venipuncture / Unknown 04/29/2025 3:04 AM EDT 04/29/2025 3:20 AM EDT us Sy De La Fuente APRN, DENISE LAB BLOOD ORDERABLES Fin al Result Performing Organization Address City/[facility]/ZIP Co de Phone Number [facility] [address] [place] [address] * Vitamin B12 (04/29/2025 3:04 AM EDT) Vitamin B12, Serum 338 210 - 1,033 pg/mL 04/29/2025 4:06 AM EDT [facility] Blood Venous blood specimen / Unknown Venipuncture / Unknown 04/29/2025 3:04 AM EDT 04/29/2025 3:20 AM EDT us Sy De La Fuente APRN, DENISE LAB BLOOD ORDERABLES Fin al Result Performing Organization Address [facility] Co de Phone Number [facility] [address] [place] [address] * (ABNORMAL) Iron & Total Iron Binding Capacity, Plasma (Includes Transferrin) (04/29/2025 3:04 AM EDT) Iron, Plasma 36(L) 50 - 170 ug/dL 04/29/2025 3:55 AM EDT [facility] Transferrin, Plasma 197(L) 200 - 360 mg/dL 04/29/2025 3:55 AM EDT [facility] Total Iron Binding Capacity, Plasma 246 240 - 450 ug/mL 04/29/2025 3:55 AM EDT [facility] Transferrin Saturation 15 14 - 50 % 04/29/2025 3:55 AM EDT [facility] Blood Venous blood specimen / Unknown Venipuncture / Unknown 04/29/2025 3:04 AM EDT 04/29/2025 3:19 AM EDT us Sy De La Fuente APRN, DNP LAB BLOOD ORDERABLES Fin al Result Performing Organization Address City/[facility]/ZIP Co de Phone Number [facility] [address] [place] [address] * Ferritin (04/29/2025 3:04 AM EDT) Ferritin, Serum 40 20 - 400 ng/mL 04/29/2025 4:06 AM EDT [facility] Blood Venous blood specimen / Unknown Venipuncture / Unknown 04/29/2025 3:04 AM EDT 04/29/2025 3:20 AM EDT us Sy De La Fuente APRN, DNP LAB BLOOD ORDERABLES Fin al Result Performing Organization Address City/[facility]/ZIP Co de Phone Number [facility] [address] [place] [address] * Cortisol (04/29/2025 3:04 AM EDT) Cortisol 2.80 Before 10am: 3.7 - 19.4. After 5pm: 2.9 - 17.3 ug/dL 04/29/2025 4:22 AM EDT [facility] Comment:Testing performed on [employer], standardized against [facility] Reference Standard concentration values assigned by LC-MS/MS and verified by BCR 192 and BCR 193 certified reference materials. Blood Venous blood specimen / Unknown Venipuncture / Unknown 04/29/2025 3:04 AM EDT 04/29/2025 3:19 AM EDT us Sy De La Fuente APRN, [facility] REF LAB BLOOD AND FL UID ORD Final Result Performing Organization Address City/[facility]/ZIP Co de Phone Number [facility] [address] [place] [address] * TSH (04/29/2025 3:04 AM EDT) Thyroid Stimulating Hormone, Plasma 1.58 0.40 - 4.20 uIU/mL 04/29/2025 3:55 AM EDT [facility] Blood Venous blood specimen / Unknown Venipuncture / Unknown 04/29/2025 3:04 AM EDT 04/29/2025 3:19 AM EDT us Sy De La Fuente APRN, DNP LAB BLOOD ORDERABLES Fin al Result Performing Organization Address City/[facility]/ZIP Co de Phone Number [facility] [address] [place] [address] * (ABNORMAL) Hemoglobin A1c (04/29/2025 3:04 AM EDT) Hemoglobin A1c 8.9(H) <5.7 % 04/29/2025 9:40 AM EDT [facility] Blood Venous blood specimen / Unknown Venipuncture / Unknown 04/29/2025 3:04 AM EDT 04/29/2025 3:19 AM EDT Narrative [facility] - 04/29/2025 9:40 AM EDT [facility]1C Interpretive Data: Diagnosis of Diabetes: Diabetic > or = 6.5% Pre-diabetic 5.7 to 6.4% Non-diabetic < or = 5.6% Glycemic Targets for Type I and Type II Diabetics: Non- Adults <7.0% Adults <6.0% Children and Adolescents <7.5% Source: [place] [employer]. Standards of medical care in diabetes,2017. Diabetes Care.2017:40 (suppl 1):S1-S135. us Sy De La Fuente APRN, DNP LAB BLOOD ORDERABLES Fin al Result Performing Organization Address [facility] Co de Phone Number [facility] [address] [place] [address] * Phosphorus (04/29/2025 3:04 AM EDT) Phosphorus, Plasma 3.6 2.5 - 4.5 mg/dL 04/29/2025 3:55 AM EDT [facility] Blood Venous blood specimen / Unknown Venipuncture / Unknown 04/29/2025 3:04 AM EDT 04/29/2025 3:19 AM EDT Sy De La Fuente APRN, DNP LAB BLOOD ORDERABLES Fin al Result Performing Organization Address City/[facility]/ZIP Co de Phone Number [facility] [address] [place] [address] * (ABNORMAL) Magnesium, Plasma (04/29/2025 3:04 AM EDT) Magnesium, Plasma 1.7(L) 1.9 - 2.4 mg/dL 04/29/2025 3:55 AM EDT [facility] Blood Venous blood specimen / Unknown Venipuncture / Unknown 04/29/2025 3:04 AM EDT 04/29/2025 3:19 AM EDT us Sy De La Fuente CIDER PRESS OPERATOR, DNP LAB BLOOD ORDERABLES Fin al Result [facility] [address] [place] [address] * (ABNORMAL) Comprehensive metabolic panel (04/29/2025 3:04 AM EDT) Glucose, Plasma 219(H) 74 - 99 mg/dL 04/29/2025 3:55 AM EDT [facility] BUN, Plasma 9 7 - 21 mg/dL 04/29/2025 3:55 AM EDT [facility] Creatinine, Plasma 0.94 0.70 - 1.20 mg/dL 04/29/2025 3:55 AM EDT [facility] BUN/Creatinine Ratio 04/29/2025 3:55 AM EDT [facility] Sodium, Plasma 137 136 - 145 mmol/L 04/29/2025 3:55 AM EDT [facility] Potassium, Plasma 3.1(L) 3.6 - 4.9 mmol/L 04/29/2025 3:55 AM EDT [facility] Chloride, Plasma 92(L) 97 - 107 mmol/L 04/29/2025 3:55 AM EDT [facility] CO2, Plasma 38(H) 22 - 29 mmol/L 04/29/2025 3:55 AM EDT [facility] Anion Gap 7 6 - 16 mmol/L 04/29/2025 3:55 AM EDT [facility] Total Calcium, Plasma 8.6(L) 8.9 - 10.2 mg/dL 04/29/2025 3:55 AM EDT [facility] Total Protein 7.4 6.3 - 7.9 g/dL 04/29/2025 3:55 AM EDT [facility] Albumin, Plasma 3.3(L) 3.5 - 5.2 g/dL 04/29/2025 3:55 AM EDT [facility] AST, Plasma 18 10 - 50 U/L 04/29/2025 3:55 AM EDT [facility] ALT, Plasma 11 10 - 50 U/L 04/29/2025 3:55 AM EDT [facility] Alkaline Phosphatase, Plasma 55 40 - 115 U/L 04/29/2025 3:55 AM EDT [facility] Total Bilirubin, Plasma 0.8 0.2 - 1.1 mg/dL 04/29/2025 3:55 AM EDT [facility] eGFRcr 100.6 mL/min/1.7 3m*2 04/29/2025 3:55 AM EDT [facility] Comment:Reported eGFRcr in m L/min/1.73m2 is based the CKD-EPI 2020 equation that does not use a race coefficient. Blood Venous blood specimen / Unknown Venipuncture / Unknown 04/29/2025 3:04 AM EDT 04/29/2025 3:19 AM EDT us Sy De La Fuente CIDER PRESS OPERATOR, DNP LAB BLOOD ORDERABLES Fin al Result [facility] [address] [place] [address] * (ABNORMAL) CBC and Differential (04/29/2025 3:04 AM EDT) WBC Count 6.68 3.70 - 10.30 10*3/uL LAB HEMATOLOGY METHOD 04/29/2025 3:16 AM EDT [facility] RBC Count 4.21(L) 4.60 - 6.10 10*6/uL LAB HEMATOLOGY METHOD 04/29/2025 3:16 AM EDT [facility] HGB 9.4(L) 13.7 - 17.5 g/dL LAB HEMATOLOGY METHOD 04/29/2025 3:16 AM EDT [facility] HCT 32.0(L) 40.0 - 51.0 % LAB HEMATOLOGY METHOD 04/29/2025 3:16 AM EDT [facility] Platelet Count 249 155 - 369 10*3/uL LAB HEMATOLOGY METHOD 04/29/2025 3:16 AM EDT [facility] MCV 76(L) 79 - 98 fL LAB HEMATOLOGY METHOD 04/29/2025 3:16 AM EDT [facility] MCH 22.3(L) 26.0 - 32.0 pg LAB HEMATOLOGY METHOD 04/29/2025 3:16 AM EDT [facility] MCHC 29.4(L) 30.7 - 35.5 g/dL LAB HEMATOLOGY METHOD 04/29/2025 3:16 AM EDT [facility] RDW 19.6(H) 11.5 - 14.5 % LAB HEMATOLOGY METHOD 04/29/2025 3:16 AM EDT [facility] MPV 8.4(L) 8.8 - 12.5 fL LAB HEMATOLOGY METHOD 04/29/2025 3:16 AM EDT [facility] nRBC 0.0 <=0.0 per 100 WBCs LAB HEMATOLOGY METHOD 04/29/2025 3:16 AM EDT [facility] Differential Type Automated LAB HEMATOLOGY METHOD 04/29/2025 3:16 AM EDT [facility] Neutrophils % 75 % LAB HEMATOLOGY METHOD 04/29/2025 3:16 AM EDT [facility] Lymphocytes % 11 % LAB HEMATOLOGY METHOD 04/29/2025 3:16 AM EDT [facility] Monocytes % 9 % LAB HEMATOLOGY METHOD 04/29/2025 3:16 AM EDT [facility] Eosinophils % 4 % LAB HEMATOLOGY METHOD 04/29/2025 3:16 AM EDT [facility] Basophils % 0 % LAB HEMATOLOGY METHOD 04/29/2025 3:16 AM EDT [facility] Immature Granulocytes % 1 % LAB HEMATOLOGY METHOD 04/29/2025 3:16 AM EDT [facility] Neutrophils Absolute 5.01 1.60 - 6.10 10*3/uL LAB HEMATOLOGY METHOD 04/29/2025 3:16 AM EDT [facility] Lymphocytes Absolute 0.75(L) 1.20 - 3.90 10*3/uL LAB HEMATOLOGY METHOD 04/29/2025 3:16 AM EDT [facility] Monocytes Absolute 0.59 0.30 - 0.90 10*3/uL LAB HEMATOLOGY METHOD 04/29/2025 3:16 AM EDT [facility] Eosinophils Absolute 0.26 0.00 - 0.50 10*3/uL LAB HEMATOLOGY METHOD 04/29/2025 3:16 AM EDT [facility] Basophils Absolute 0.03 0.00 - 0.10 10*3/uL LAB HEMATOLOGY METHOD 04/29/2025 3:16 AM EDT [facility] Immature Granulocytes Absolute 0.04 0.00 - 0.06 10*3/uL LAB HEMATOLOGY METHOD 04/29/2025 3:16 AM EDT [facility] Blood Venous blood specimen / Unknown Venipuncture / Unknown 04/29/2025 3:04 AM EDT 04/29/2025 3:13 AM EDT Narrative [facility] - 04/29/2025 3:16 AM EDT Therapeutic decision making should be based on absolute values, rather than percentages. Sy De La Fuente CIDER PRESS OPERATOR, DNP LAB BLOOD ORDERABLES Fin al Result [facility] [address] [place] [address] * (ABNORMAL) POCT glucose meter (04/28/2025 9:06 [...] Comment 04/28/2025 9:08 PM EDT [facility] Dining Room Attendant ID Azam Poolealiza 04/28/2025 9:08 PM EDT [facility] Device ID [id number] 04/28/2025 9:08 PM EDT [facility] Specimen Type POC Capillary 04/28/2025 9:08 PM EDT [facility] Blood Capillary blood specimen / Unknown 04/28/2025 9:06 PM EDT 04/28/2025 9:08 PM EDT Marjorie Myers MD LAB POINT OF CARE TE ST DOCKED DEVICE UNSOLICITED RESULTS Final Result Performing Organization Address City/[facility] Co de Phone Number [facility] [address] [place] [address] * (ABNORMAL) POCT glucose meter (04/28/2025 5:34 [...] Comment 04/28/2025 5:38 PM EDT [facility] Dining Room Attendant ID Ailyn Finch 5:38 PM EDT [facility] Device ID [id number] 04/28/2025 5:38 PM [facility] Specimen Type POC Capillary 04/28/2025 5:38 PM [facility] Blood Capillary blood specimen / Unknown 04/28/2025 5:34 PM EDT 04/28/2025 5:38 PM EDT Marjorie Myers MD LAB POINT OF CARE TE ST DOCKED DEVICE UNSOLICITED RESULTS Final Result Performing Organization Address City/[facility]/ZIP Co de Phone Number [facility] [address] [place] [address] * (ABNORMAL) POCT glucose meter (04/28/2025 3:51 [...] Comment 04/28/2025 3:54 PM [facility] Dining Room Attendant ID Ailyn Finch 3:54 PM [facility] Device ID [id number] 04/28/2025 3:54 PM [facility] Specimen Type POC Capillary 04/28/2025 3:54 PM [facility] Blood Capillary blood specimen / Unknown 04/28/2025 3:51 PM EDT 04/28/2025 3:54 PM EDT Marjorie Myers MD LAB POINT OF CARE TE ST DOCKED DEVICE UNSOLICITED RESULTS Final Result Performing Organization Address City/State/[facility] Co de Phone Number [facility] [address] [place] [address] * VAS Ankle Brachial Index - GABBI [...] are demonstrated at the levels of the INCOMING INSPECTOR and DPA. Segmental pressures are within normal limits with a INCOMING INSPECTOR GABBI of 1.1 (172 mmHg) and a DPA GABBI of 1.0 (149 mmHg). Digit pressures are of 122 mmHg. Left: Multiphasic waveforms are demonstrated at the levels of the INCOMING INSPECTOR and DPA. Segmental pressures are within normal limits with a INCOMING INSPECTOR GABBI of 1.1 (164 mmHg) and a DPA GABBI of 1.0 (153 mmHg). Digit pressures are of 151 mmHg. Procedure Note Chris Schaefer MD - 04/28/2025 CLINICAL INDICATION: Diabetic foot ulcer TECHNIQUE: Non-invasive, continuous wave Doppler exam with segmental pressures andspectral analysis of the lower extremity was performed. COMPARISON: None. FINDINGS: Right: Multiphasic waveforms are demonstrated at the levels of the INCOMING INSPECTOR andDPA. Segmental pressures are within normal limits with a INCOMING INSPECTOR GABBI of 1.1(172 mmHg) and a DPA GABBI of 1.0 (149 mmHg). Digit pressures are of 122mmHg. Left: Multiphasic waveforms are demonstrated at the levels of the INCOMING INSPECTOR andDPA. Segmental pressures are within normal limits with a INCOMING INSPECTOR GABBI of 1.1(164 mmHg) and a [...] on04/28/2025 4:14 PM Sy De La Fuente CIDER PRESS OPERATOR, DNP CV VASCULAR PROCEDURES F inal Result * Multi Drug Resistance Test (04/28/2025 1:44 PM EDT) Culture No Multi Drug Resistant Organisms Isolated 04/29/2025 2:32 PM EDT [facility] Swab (Nares and Saba Rectal) Non-blood Collection / Unknown 04/28/2025 1:44 PM EDT 04/28/2025 2:15 PM EDT Narrative [facility] - 04/29/2025 2:32 PM EDT [...] MICROBIOLOGY - GENER AL ORDERABLES Final Result [facility] [address] [place] [address] * (ABNORMAL) POCT glucose meter (04/28/2025 12:52 PM EDT) [facility] POCT Glucose 271(H) 74 - 99 mg/dL [...] Comment 04/28/2025 12:56 PM EDT [facility] Dining Room Attendant ID Ailyn Finch 12:56 PM EDT [facility] Device ID [id number] 04/28/2025 12:56 PM EDT [facility] Specimen Type POC Capillary 04/28/2025 12:56 PM EDT [facility] Blood Capillary blood specimen / Unknown 04/28/2025 12:52 PM EDT 04/28/2025 12:56 PM EDT us Marjorie Myers MD LAB POINT OF CARE TE ST DOCKED DEVICE UNSOLICITED RESULTS Final Result Performing Organization Address City/[facility]/ZIP Co de Phone Number [facility]ALTHCARE LAB [address] [place] [address] * (ABNORMAL) POCT glucose meter (04/28/2025 11:39 [...] Comment 04/28/2025 11:44 AM EDT [facility] LAB Dining Room Attendant ID Ailyn Finch 11:44 AM EDT [facility]ALTH[facility]ARE LAB Device ID [id number] 04/28/2025 11:44 AM EDT [facility] Specimen Type POC Capillary 04/28/2025 11:44 AM EDT [facility] Blood Capillary blood specimen / Unknown 04/28/2025 11:39 AM EDT 04/28/2025 11:44 AM EDT us Marjorie Myers MD LAB POINT OF CARE TE ST DOCKED DEVICE UNSOLICITED RESULTS Final Result Performing Organization Address City/[facility]/ZIP Co de Phone Number [facility]ALTHCARE LAB [address] [place] [address] * Lavender Top (04/28/2025 8:13 AM EDT) Extra Hold for add-ons 04/28/2025 11:01 AM EDT [facility] Comment:Auto resulted. Blood Venous blood specimen / Unknown 04/28/2025 8:13 AM EDT 04/28/2025 8:19 AM EDT us Marjorie Myers MD LAB BLOOD ORDERABLES Final Resul t [facility] [address] [place] [address] * Light Green Top (04/28/2025 8:13 AM EDT) Extra Hold for add-ons 04/28/2025 11:01 AM EDT [facility] Comment:Auto resulted. Blood Venous blood specimen / Unknown 04/28/2025 8:13 AM EDT 04/28/2025 8:19 AM EDT us Marjorei Myers MD LAB BLOOD ORDERABLES Final Resul t Performing Organization Address City/[facility]/ZIP Co de Phone Number [facility] [address] [place] [address] * APTT (04/28/2025 8:13 AM EDT) aPTT 32 25 - 35 sec 04/28/2025 8:33 AM EDT [facility] Blood Venous blood specimen / Unknown Venipuncture / Unknown 04/28/2025 8:13 AM EDT 04/28/2025 8:18 AM EDT us Sy De La Fuente APRN, DNP LAB BLOOD ORDERABLES Fin al Result Performing Organization Address [facility]/ZIP Co de Phone Number [facility] [address] [place] [address] * (ABNORMAL) PT/INR (04/28/2025 8:13 AM EDT) Prothrombin Time 17.5(H) 12.0 - 14.3 sec 04/28/2025 8:33 AM EDT [facility] INR 1.4(H) 0.9 - 1.1 04/28/2025 8:33 AM EDT [facility] Blood Venous blood specimen / Unknown Venipuncture / Unknown 04/28/2025 8:13 AM EDT 04/28/2025 8:18 AM EDT Narrative [facility] - 04/28/2025 8:33 AM EDT OPTIMAL INR RANGES FOR PATIENT ON ORAL ANTICOAGULANT THERAPY Prevention of venous thromboembolism INR 2.0 to 3.0 In patients with heart disease: Atrial fibrillation INR 2.0 to 3.0 Valvular heart disease INR 2.0 to 3.0 Tissue heart valves INR 2.0 to 3.0 Mechanical prosthetic valves INR 2.5 to 3.5 Prevention of recurrent DC INR 2.5 to 3.5 Sy De La Fuente APRN, DENISE LAB BLOOD ORDERABLES Fin al Result [facility] [address] [place] [address] * ECG Adult (04/28/2025 7:20 AM EDT) EKG DIAGNOSIS CLASS Abnormal MUSE ECG Ventricular Rate 90 BPM MUSE ECG Atrial Rate [address] Interval 206 ms MUSE ECG QRSD Interval 146 ms MUSE ECG QT Interval 450 ms MUSE ECG QTC Interval 550 ms MUSE ECG P Reserve 69 degrees MUSE ECG R Reserve -32 degrees MUSE ECG T Wave Reserve 35 degrees MUSE ECG Diagnosis Baseline Artifact [...] ORDERABLES Final Re sult Performing Organization Address [facility] Co de Phone Number MUSE ECG * (ABNORMAL) POCT glucose meter (04/28/2025 7:17 AM EDT) POCT Glucose 199(H) 74 - 99 mg/dL 04/28/2025 7:21 AM EDT [facility] Comment:Accuracy of a glucos e result [...] 04/28/2025 7:21 AM EDT [facility] Dining Room Attendant ID Ailyn Finch 7:21 AM EDT [facility]ALTH[facility] LAB Device ID [id number] 04/28/2025 7:21 AM EDT [facility] Specimen Type POC Capillary 04/28/2025 7:21 AM EDT [facility] Blood Capillary blood specimen / Unknown 04/28/2025 7:17 AM EDT 04/28/2025 7:21 AM EDT us Greg Lee MD LAB POINT OF CARE TE ST DOCKED DEVICE UNSOLICITED RESULTS Final Result Performing Organization Address City/State/[facility] Co de Phone Number [facility] [address] [place] [address] * CT Foot Right w IV Contrast [...] TEST ORDERABLES Final Result Performing Organization Address City/[facility]/ZIP Co de Phone Number BLOOD BANK [address] [place] [address] * Blood Culture (Aerobic/Anaerobet Set) (04/27/2025 10:16 PM EDT) Culture No growth at day 5 05/03/2025 12:01 AM EDT [facility] Blood Venous blood specimen / Unknown Venipuncture / Unknown 04/27/2025 10:16 PM EDT 04/27/2025 10:53 PM EDT us Jsesa aLw MD LAB MICROBIOLOGY - [facility] Final Result [facility] [address] [place] [address] * Blood Culture (Aerobic/Anaerobet Set) (04/27/2025 10:16 PM EDT) Culture No growth at day 5 05/03/2025 12:01 AM EDT [facility] Blood Venous blood specimen / Unknown Venipuncture / Unknown 04/27/2025 10:16 PM EDT 04/27/2025 10:53 PM EDT Jessa Law MD LAB MICROBIOLOGY - [facility] SANYA DOMINGUEZ Final Result [facility] [address] [place] [address] * (ABNORMAL) Blood gas, venous (04/27/2025 10:16 PM EDT) pH, Venous 7.47(H) 7.32 - 7.43 LAB HEMATOLOGY METHOD 04/27/2025 10:21 PM EDT [facility] pCO2, Venous 50 40 - 55 mmHg LAB HEMATOLOGY METHOD 04/27/2025 10:21 PM EDT [facility] pO2, Venous 30 25 - 40 mmHg LAB HEMATOLOGY METHOD 04/27/2025 10:21 PM EDT [facility] SO2, Measured, Venous 52(L) 65 - 80 % LAB HEMATOLOGY METHOD 04/27/2025 10:21 PM EDT [facility] Base Excess, Venous 11.6(H) -2.0 - 3.0 mmol/L LAB HEMATOLOGY METHOD 04/27/2025 10:21 PM EDT [facility] Bicarbonate, Calculated, Venous 37(H) 22 - 26 mmol/L LAB HEMATOLOGY METHOD 04/27/2025 10:21 PM EDT [facility] Hematocrit, Whole Blood 30.1(L) 40.0 - 51.0 % LAB HEMATOLOGY METHOD 04/27/2025 10:21 PM EDT [facility] Sodium, Whole Blood 136 136 - 145 mmol/L LAB HEMATOLOGY METHOD 04/27/2025 10:21 PM EDT [facility] Potassium, Whole Blood 2.8(L) 3.6 - 4.9 mmol/L LAB HEMATOLOGY METHOD 04/27/2025 10:21 PM EDT [facility] Chloride, Whole Blood 88(L) 97 - 107 mmol/L LAB HEMATOLOGY METHOD 04/27/2025 10:21 PM EDT [facility] Glucose, Whole Blood 131(H) 74 - 99 mg/dL LAB HEMATOLOGY METHOD 04/27/2025 10:21 PM EDT [facility] Lactate, Venous, Whole Blood 2.0 0.5 - 2.2 mmol/L LAB HEMATOLOGY METHOD 04/27/2025 10:21 PM EDT [facility] Ionized Calcium, Whole Blood 4.2(L) 4.6 - 5.1 mg/dL LAB HEMATOLOGY METHOD 04/27/2025 10:21 PM EDT [facility] Blood Venous blood specimen / Unknown Venipuncture / Unknown 04/27/2025 10:16 PM EDT 04/27/2025 10:20 PM EDT us Jessa Law MD LAB BLOOD ORDERABLES Final Resu lt Performing Organization Address City/[facility]/ZIP Co de Phone Number [facility] [address] [place] [address] * Creatine Kinase, Total, Plasma (04/27/2025 9:37 PM EDT) Creatine Kinase, Plasma 71 49 - 320 U/L 04/28/2025 8:36 AM EDT [facility] Blood Venous blood specimen / Unknown Venipuncture / Unknown 04/27/2025 9:37 PM EDT 04/27/2025 9:40 PM EDT us Sy De La Fuente CIDER PRESS OPERATOR, DNP LAB BLOOD ORDERABLES Fin al Result Performing Organization Address City/[facility]/ZIP Co de Phone Number [facility] [address] [place] [address] * (ABNORMAL) Procalcitonin (04/27/2025 9:37 PM EDT) Procalcitonin, Plasma 0.11(H) <0.09 ng/mL 04/28/2025 8:36 AM EDT [facility] Blood Venous blood specimen / Unknown Venipuncture / Unknown 04/27/2025 9:37 PM EDT 04/27/2025 9:40 PM EDT Narrative [facility] - 04/28/2025 8:36 AM EDT [...] predict 28 day mortality risk. Please consult [email or web address] for more information. Test performed at [facility]. us Sy De La Fuente APRN, DNP LAB BLOOD ORDERABLES Fin al Result Performing Organization Address City/[facility]/ZIP Co de Phone Number [facility] [address] [place] [address] * (ABNORMAL) Sed rate, automated (04/27/2025 9:37 PM EDT) Sedimentation Rate >111(H) <15 mm/hr 2024 11:10 PM EDT [facility] Blood Venous blood specimen / Unknown Venipuncture / Unknown 04/27/2025 9:37 PM EDT 04/27/2025 9:40 PM EDT us Jessa Law MD LAB BLOOD ORDERABLES Final Resu lt [facility] [address] [place] [address] * (ABNORMAL) Magnesium (04/27/2025 9:37 PM EDT) Magnesium, Plasma 1.2(L) 1.9 - 2.4 mg/dL 04/27/2025 10:11 PM EDT [facility] Blood Venous blood specimen / Unknown Venipuncture / Unknown 04/27/2025 9:37 PM EDT 04/27/2025 9:40 PM EDT us Jessa Law MD LAB BLOOD ORDERABLES Final Resu lt Performing Organization Address City/[facility]/ZIP Co de Phone Number [facility] [address] [place] [address] * Beta-Hydroxybutyric Acid (04/27/2025 9:37 PM EDT) Beta-Hydroxybut yric Acid, Plasma 0.23 <=0.27 mmol/L 04/27/2025 10:56 PM EDT [facility] Blood Venous blood specimen / Unknown Venipuncture / Unknown 04/27/2025 9:37 PM EDT 04/27/2025 9:40 PM EDT Jessa Law MD LAB BLOOD ORDERABLES Final Resu lt Performing Organization Address [facility] Co de Phone Number [facility] [address] [place] [address] * ED HIV 1/2 Antibody/Antigen Screen w/Reflex to HIV 1/2 Differentiation (04/27/2025 9:37 PM EDT) HIV 1 & 2 Antibody/Antigen Screen Non Reactive Non Reactive 04/27/2025 10:41 PM EDT [facility] Comment:Screening for HIV 1 & 2 antibodies, and P24 antigen is NONREACTIVE. No confirmatory testing is required. Blood Venous blood specimen / Unknown Venipuncture / Unknown 04/27/2025 9:37 PM EDT 04/27/2025 10:00 PM EDT Madhu Ritchie MD LAB BLOOD ORDERABLES Final Res ult Performing Organization Address City/[facility]/ZIP Co de Phone Number [facility] [address] [place] [address] * Hepatitis C Antibody - ED (04/27/2025 9:37 PM EDT) Hepatitis C Antibody Negative Negative 04/27/2025 10:41 PM EDT [facility] Blood Venous blood specimen / Unknown Venipuncture / Unknown 04/27/2025 9:37 PM EDT 04/27/2025 10:00 PM EDT Madhu Ritchie MD LAB BLOOD ORDERABLES Final Res ult Performing Organization Address [facility]/ZIP Co de Phone Number [facility] [address] [place] [address] * (ABNORMAL) C-reactive protein (04/27/2025 9:37 PM EDT) Pathologist [facility] CRP, Plasma 82.6(H) <=8.0 mg/L 04/27/2025 10:03 PM EDT [facility] Blood Venous blood specimen / Unknown Venipuncture / Unknown 04/27/2025 9:37 PM EDT 04/27/2025 9:40 PM EDT Narrative [facility] - 04/27/2025 10:03 PM EDT This CRP test is appropriate for assessment of infection, systemic inflammation and/or tissue injury. To assess cardiovascular disease risk order high sensitivity CRP (CRPH). Madhu Ritchie MD LAB BLOOD ORDERABLES Final Res ult Performing Organization Address [facility]/ZIP Co de Phone Number [facility] [address] [place] [address] * (ABNORMAL) CBC w/diff (04/27/2025 9:37 PM EDT) WBC Count 12.00(H) 3.70 - 10.30 10*3/uL LAB HEMATOLOGY METHOD 04/27/2025 9:43 PM EDT [facility] RBC Count 4.48(L) 4.60 - 6.10 10*6/uL LAB HEMATOLOGY METHOD 04/27/2025 9:43 PM EDT [facility] HGB 10.4(L) 13.7 - 17.5 g/dL LAB HEMATOLOGY METHOD 04/27/2025 9:43 PM EDT [facility] HCT 33.3(L) 40.0 - 51.0 % LAB HEMATOLOGY METHOD 04/27/2025 9:43 PM EDT [facility] Platelet Count 282 155 - 369 10*3/uL LAB HEMATOLOGY METHOD 04/27/2025 9:43 PM EDT [facility] MCV 74(L) 79 - 98 fL LAB HEMATOLOGY METHOD 04/27/2025 9:43 PM EDT [facility] MCH 23.2(L) 26.0 - 32.0 pg LAB HEMATOLOGY METHOD 04/27/2025 9:43 PM EDT [facility] MCHC 31.2 30.7 - 35.5 g/dL LAB HEMATOLOGY METHOD 04/27/2025 9:43 PM EDT [facility] RDW 19.4(H) 11.5 - 14.5 % LAB HEMATOLOGY METHOD 04/27/2025 9:43 PM EDT [facility] MPV 8.3(L) 8.8 - 12.5 fL LAB HEMATOLOGY METHOD 04/27/2025 9:43 PM EDT [facility] nRBC 0.0 <=0.0 per 100 WBCs LAB HEMATOLOGY METHOD 04/27/2025 9:43 PM EDT [facility] Differential Type Automated LAB HEMATOLOGY METHOD 04/27/2025 9:43 PM EDT [facility] Neutrophils % 82 % LAB HEMATOLOGY METHOD 04/27/2025 9:43 PM EDT [facility] Lymphocytes % 9 % LAB HEMATOLOGY METHOD 04/27/2025 9:43 PM EDT [facility] Monocytes % 7 % LAB HEMATOLOGY METHOD 04/27/2025 9:43 PM EDT [facility] Eosinophils % 2 % LAB HEMATOLOGY METHOD 04/27/2025 9:43 PM EDT [facility] Basophils % 0 % LAB HEMATOLOGY METHOD 04/27/2025 9:43 PM EDT [facility] Immature Granulocytes % 0 % LAB HEMATOLOGY METHOD 04/27/2025 9:43 PM EDT [facility] Neutrophils Absolute 9.73(H) 1.60 - 6.10 10*3/uL LAB HEMATOLOGY METHOD 04/27/2025 9:43 PM EDT [facility] Lymphocytes Absolute 1.11(L) 1.20 - 3.90 10*3/uL LAB HEMATOLOGY METHOD 04/27/2025 9:43 PM EDT [facility] Monocytes Absolute 0.80 0.30 - 0.90 10*3/uL LAB HEMATOLOGY METHOD 04/27/2025 9:43 PM EDT [facility] Eosinophils Absolute 0.29 0.00 - 0.50 10*3/uL LAB HEMATOLOGY METHOD 04/27/2025 9:43 PM EDT [facility] Basophils Absolute 0.03 0.00 - 0.10 10*3/uL LAB HEMATOLOGY METHOD 04/27/2025 9:43 PM EDT [facility] Immature Granulocytes Absolute 0.04 0.00 - 0.06 10*3/uL LAB HEMATOLOGY METHOD 04/27/2025 9:43 PM EDT [facility] Blood Venous blood specimen / Unknown Venipuncture / Unknown 04/27/2025 9:37 PM EDT 04/27/2025 9:40 PM EDT Narrative [facility] - 04/27/2025 9:43 PM EDT Therapeutic decision making should be based on absolute values, rather than percentages. us Madhu Ritchie MD LAB BLOOD ORDERABLES Final Res ult [facility] [address] [place] [address] * (ABNORMAL) BMP (04/27/2025 9:37 PM EDT) Glucose, Plasma 135(H) 74 - 99 mg/dL 04/27/2025 10:03 PM EDT [facility] BUN, Plasma 8 7 - 21 mg/dL 04/27/2025 10:03 PM EDT [facility] Creatinine, Plasma 0.84 0.70 - 1.20 mg/dL 04/27/2025 10:03 PM EDT [facility] BUN/Creatinine Ratio 10 04/27/2025 10:03 PM EDT [facility] Sodium, Plasma 135(L) 136 - 145 mmol/L 04/27/2025 10:03 PM EDT [facility] Potassium, Plasma 3.3(L) 3.6 - 4.9 mmol/L 04/27/2025 10:03 PM EDT [facility] Chloride, Plasma 90(L) 97 - 107 mmol/L 04/27/2025 10:03 PM EDT [facility] CO2, Plasma 29 22 - 29 mmol/L 04/27/2025 10:03 PM EDT [facility] Anion Gap 16 6 - 16 mmol/L 04/27/2025 10:03 PM EDT [facility] Total Calcium, Plasma 9.0 8.9 - 10.2 mg/dL 04/27/2025 10:03 PM EDT [facility] eGFRcr 108.2 mL/min/1.7 3m*2 04/27/2025 10:03 PM EDT [facility] Comment:Reported eGFRcr in m L/min/1.73m2 is based the CKD-EPI 2020 equation that does not use a race coefficient. Blood Venous blood specimen / Unknown Venipuncture / Unknown 04/27/2025 9:37 PM EDT 04/27/2025 9:40 PM EDT us Madhu Ritchie MD LAB BLOOD ORDERABLES Final Res ult [facility] [address] [place] [address] documented in this encounter Visit Diagnoses Diagnosis Other chronic osteomyelitis of right foot ([facility]) Diabetic foot ulcer with osteomyelitis [...] 40 mEq, Oral, Once, 1 dose, On [facility] 05/10/25 at 0900, Routine Given 05/10/2025 8:38 [...] 0.25 mg Left Lower Abdomen sodium chloride ([place]) 0.65 % nasal spray 1 spray 1 spray, Each Nostril, As needed, Starting on Thu05/06/25 at 1208, Until Thu05/09/25 at 0821, Routine, congestion Given 05/07/2025 3:52 AM EDT 1 spray sodium chloride ([place]) 0.65 % nasal spray 1 spray 1 [...] - Provider: Kylee Gonzalez RN - Comment: [facility]) insulin regular (HumuLIN R U-500) 500 [...] Provider: Kylee Gonzalez RN - Comment: [facility]) insulin regular (HumuLIN R U-500) 500 UNIT/ML [...] - Provider: Kylee Gonzalez RN - Comment: [facility]) perflutren lipid microspheres (Definity) [...] Herman RN) 1729 (Given - Provider: Deepthi Hermna RN) sodium chloride 0.9 % flush 10 [...] RN) 0902 (Given - Provider: Deepthi Herman, LOLA)1424 (Given - Provider: Deepthi Herman, LOLA)2228 (Given - Provider: Ivan Slaughter RN) 0907 (Given - Provider: Kylee Gonzalez RN) sodium chloride ([place]) 0.65 % nasal spray 1 spray 1 [...] documented as of this encounter Care Teams Therapy Aide Relationship Specialty Start Date End Date Malcolm Hayward APRN [address] [place] [address] [id number] PCP - General 09/21/23 documented as of this encounter
--- OUTSIDE RECORDS SUMMARY | 2025-05-01 06:28 | XMS_ITS | Encounter Summary ---
Author Organization Healthcare Address [address] [id number] Care Team Providers Care Bioinformatics Specialist Name Role Phone MainorMalcolm Rodrick DIANA Primary Care Provider [phone] Reason for Visit * Auth/Cert (Routine) Specialty Diagnoses / Procedures Referred By Anish t Referred To Contact Diagnoses Diabetic foot ulcer with osteomyelitis Greg Lee MD [address] [place] [phone] Phone: tel: fax: [facility] Emergency Department [address] [place] [phone] Phone: tel: Referral ID Status Reason Start Date Expiration Date Visits Re quested Visits Authorized [id number] 1 1 Encounter Details Date Type Department Care Team (Late st Contact Info) Description 05/01/2025 7:28 AM EDT Anesthesia Event [facility] OPERATING ROOM [address] [place] [phone] Gilberto Rivera MD [address] [place] [phone] Hermilo Qiu MD [address] [place] [address] Anesthesia Record Procedure Summary Procedure Name Responsible [...] in the past 12 m [facility], were you homeless or living in a nursing home (including now)? No 04/28/2025 [facility] Utilities Answer Date Recorded In the past [...] Answer Date of Assessment Author Precautions Fall risk;[facility] surveillance 05/01/2025 11:00 AM EDT Rocío [...] Question Answer Entry Date Author Precautions Fall risk;[facility] surveillance 05/01/2025 11:00 AM LOGANT Rocío [...] monitoring: continuous pulse ox, heart rate and panel monitor Block type: adductor canal and popliteal [...] portions of the procedure(s) and immediately available [facility] services the entire duration. See resident note for details. * Anesthesia Preprocedure Evaluation - Gilberto Rivera MD - 05/01/2025 7:04 AM EDT Anesthesiologist: Gilberto Rivera MD TENT FINISHER: Alen Mena CRNA, [facility] Patient: Gonzalo Russell HPI Gonzalo Russell is a 49 y.o. male with body mass index is 76.9 kg/m??. who presents with Diabetic foot ulcer, now for AMPUTATION,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 4th (Right) Procedure Information Date/Time: 05/01/25729 Procedure: AMPUTATION,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 4th (Right: Toes) Location: [facility] OR / [place] OR Surgeons: Mary Vicente MD Past Medical [...] (NEURONTIN) 600 mg, 3 times daily HYDROcodone-acetaminophen ([place]) 10-325 MG tablet 1 tablet, Every 6 hours PRN Insulin Pen Needle (Pen [place]) 31G X 5 MM [facility] USE TO INJECT [...] ABG No results found for: PHART , REL5CQL , PO2ART , SO2ART , BEART , SFI5LFY , HCTART , SODIUMART , POTASSIUMART , POCTCL , POCGLU , IONCALART , LACTATE Lab Results Component Value Date HCTSYR 30.1 (L) 04/27/2025 KSYR 2.8 (L) 04/27/2025 CLSYR 88 (L) 04/27/2025 GLUSYR 131 (H) 04/27/2025 CAION 4.2 (L) 04/27/2025 ECHO No echocardiogram results found for the past 12 months PFTs No results found for: KQT9MRA , JTW0YBUC , BRJ7ICD , FVCPRED BP Readings from Last 5 [...] Description 08/03/2025 2:00 PM EST Office Visit [facility] [address] [facility] 5th Floor [address] [place] [phone] Mary Vicente MD [address] [place] [address] documented as of this encounter [...] monitoring: continuous pulse ox, heart rate and panel monitor Block type: adductor canal and popliteal [...] documented as of this encounter Care Teams Bioinformatics Specialist Relationship Specialty Start Date End Date Malcolm Hayward APRN [address] [place] [address] [place] [address] PCP - General 09/21/23 documented as of this encounter
--- OUTSIDE RECORDS SUMMARY | 2025-05-01 06:30 | XMS_ITS | Encounter Summary ---
Author Organization Healthcare Address [address] [id number] Care Team Providers Care Transportation Supervisor Name Role Phone DontaemyrtleMalcolm camejo Rodrick DIANA Primary Care Provider [phone] Reason for Visit * Reason Comments Wound Check * Auth/Cert (Routine) Specialty Diagnoses / Procedures Referred By Anish t Referred To Contact Diagnoses Diabetic foot ulcer with osteomyelitis Greg Lee MD [address] [place] [address] Phone: tel: fax: [facility] Emergency Department [address] [place] [address] Phone: tel: Referral ID Status Reason Start Date Expiration Date Visits Re quested Visits Authorized [id number] 1 1 Encounter Details Date Type Department Care Team (Late st Contact Info) Description 05/01/2025 7:30 AM EDT - 05/01/2025 8:50 AM EDT Surgery [facility] OPERATING ROOM [address] [place] [address] Mary Vicente MD [address] [facility] [address] [place] [address] AMPUTATION,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 4th [...] any time in the past 12 m [facility], were you homeless or living in a half-way (including now)? No 04/28/2025 [facility] Utilities Answer Date Recorded In the past [...] 5 tablet 05/17/2025 Insulin Pen Needle ([place]) 31G X 5 MM misc USE TO [...] capsule by mouth daily. 05/10/2018 HYDROcodone-acetami nophen ([place]) 10-325 MG tablet Take 1 tablet by [...] provided Taken 05/17/2025 222 by Ivan Slaughter RNlocomotive mechanic apprentice Interventions: medication (see MAR) Goal: Optimal Wound [...] Ongoing, Progressing Intervention: Promote Activity and Functional [place] Flowsheets Taken 05/18/2025 1131 by Kylee Gonzalez RN Activity Assistance Provided: assistance, 2 people Taken 05/16/20251948 by Ivan Slaughter RN Self-Care Promotion: independence encouraged Taken 05/15/2025 1148 by Santy Garcia, RN Adaptive Equipment Use: used independently * Discharge Summary - Wily Gyoal DO - 05/18/2025 9:26 AM EST Images from the original note were not included. Hospitalization Admit Date/Time: 04/27/2025 9:29 PM Admitting Attending: Greg Lee Discharge Date: 05/18/25 Discharge Attending Physician: Wily Goyal DO PCP name and Address: Malcolm Hayward, MANAGER CAMP [address] [facility] [address] Brief History of Present Illness 49 M [...] extremity. [facility] Urinary Retention and Recurrent UTI [...] He was medically [facility], with recommendations for close follow-up [...] HYDROcodone-acetaminophen 10-325 MG tablet Commonly known as: [place] Take 1 tablet by mouth every 6 [...] the skin 1 time per week. [place] 31G X 5 MM misc USE TO [...] Your Medications These medications were sent to [facility] [place] [address] [address] gabapentin 600 MG tablet HYDROcodone-acetaminophen 10-325 MG tablet insulin regular 100 UNIT/ML injection vial insulin regular 500 UNIT/ML CONCENTRATED injection vial Information about where to get these medications is not yet available Ask your nurse or doctor about these medications ferrous sulfate 324 MG tablet delayed-release Discharge Diagnosis Medical Problems Active and Resolved Hospital Problems Hospital Morbid obesity ([facility]) Hypertension Type 2 diabetes Overview Signed [...] 05/18/2025 9:30 AM AMBULANCE ADULT JUDITH CASANOVA [facility] 05/30/2025 2:40 PM [facility] Marcano [facility] 06/14/2025 1:40 PM Divine Archer APRN ENDOTFBN[facility] 06/22/2025 1:40 PM Mary Vicente MD [facility] Pertinent Physical Exam At Time of Discharge [...] Note Gonzalo Smalls 49 y.o. male CSN: [id number] Admission: 04/27/2025 9:29 PM Primary Problem: Diabetic foot ulcer Primary Substance Abuse Specialist: Primary Caregiver: Self Assistance Available at Discharge: Availability of Care Givers (#Hours): 24 hours Housing Circumstances-Z Codes: Housing Circumstances (select all that apply): Low Income (101-300% Federal Poverty Guidlines) - Z596 Discharge Facility/Level of Care Needs: Discharge Facility/Level of Care Needs: 62-Rehab facilty ([place]) Patient's Choice of Community Agency(s): Patient's Choice of Community Agency(s): [facility] Patient/Family Anticipated Services at Transition: Patient/Family Anticipated [...] Recieved By: Gonzalo Smalls- the patient Follow-up: [facility] [address] [facility] 5th Floor [address] [facility] [place] [address] Primary care provider (PCP) Malcolm Hayward, MANAGER CAMP [address] [facility] [place] [address] Discharge Transportation: Transportation Anticipated: medical transport Transportation [...] Araceli in admission who confirmed pt's acceptance #[phone]. Pt updated and in agreement with d/c plan. Team and bedside RN updated. Bedside RN to call report to #[phone]. Araceli has access to [employer] and will get d/c s p & s surgery center that way. Script for controlled medication to be sent to [facility] [place]. Ambulance to transport the pt is [...] Mobility Bed Mobility Exam: Scooting/Bridging Level of [place]: Contact guard Physical/Nonphysical Assist: Verbal Cues, Minimal cues Assistive Device: Overhead trapeze Bed Mobility Exam: Supine to Sit Level of [place]: Minimum assist (75% patient's effort) Physical/Nonphysical Assist: HOB elevated, Verbal Cues, Minimal cues Assistive Device: Overhead trapeze Bed Mobility Exam: Sit to Supine Level of [place]: Stand-by assist Physical/Nonphysical Assist: Verbal Cues, Minimal cues Assistive Device: Overhead trapeze Transfers Transfer Exam: Sit to stand Level of [place]: Maximum assist (25% patient's effort) Physical/Nonphysical Assist: Verbal Cues, Nonverbal cues (demo/gestures), Additional assist utilized for safety, Set-up required, Minimal cues Assistive Device: Walker, rolling (bariatric) Transfer Exam: Stand to Sit Level of [place]: Maximum assist (25% patient's effort) Physical/Nonphysical Assist: [...] help from Spouse Level of Mobility Mobility [place] Independent gait with device History of Falls [...] go, I'm just nervous. Visitors Present No Shift Supervisor (if applicable) Shift Supervisor: Not Applicable OBJECTIVE PAIN Pt was without c/o pain at the beginning of this session and throughout the PT treatment. Prior to INDUSTRIAL TWISTING MACHINE OPERATOR's departure: * rest was provided * patient [...] by this therapist: BED MOBILITY Level of [place] Physical/Non- physical Assist Adaptive Equipment Utilized Rolling/ Turning Contact guard Verbal Cues, Set-up required, Minimal cues Bed rails, Other (INTERNET MARKETING ASSISTANT) Scooting/ Bridging Contact guard Verbal Cues, Minimal [...] breaks between standing trials. TRANSFERS Level of [place] Physical/Non- physical Assist Adaptive Equipment Utilized Sit [...] placement, sequencing, weight shifting, appropriate use of INTERNET MARKETING ASSISTANT, and maintaining NWB on RLE. Tactile cues provided to assist in sequencing and weight shifting. AMBULATION Level of [place] Distance Adaptive Equipment Utilized Ambulation N/A N/A N/A Comments Unable to side step or progress to forward hop step at bariatric RW level due to inabilityto maintain prolonged standing position while maintaining NWB in RLE. BALANCE Postural Appearance Posture: Within Functional Limits, Forward head Level of [place] Balance Support Activities Static Sit Standby assist [...] Abduction * Ankle pumps x1-2 sec holds INDUSTRIAL TWISTING MACHINE OPERATOR provided minimal verbal and tactile cueing to [...] overall. Standardized Assessments Standardized Assessments Standardized Assessments: [facility] 6-Clicks Mobility Assessment [facility] 6-Clicks Mobility Assessment Difficulty patient [...] climbing 3-5 steps with a railing?: Unable [facility] 6-Clicks Mobility Assessment Total : 11 PATIENT / FAMILY EDUCATION Patient was educated regarding the PT POC and recommendations regarding discharge planning, as wellas progressively increased time spent out of bed/up to chair, and continued mobilization / ambulation with nursing staff as tolerated to promote increased activity tolerance and Endurance. INDUSTRIAL TWISTING MACHINE OPERATOR providing verbal cues/demonstration for pursed-lip breathing technique to promote improved ventilation, decreased respiratory rate and energy conservation with activity. INDUSTRIAL TWISTING MACHINE OPERATOR stressed to patient the importance of having [...] has been following with urology outpatient at [facility]. They have postulated this to be related [...] Ongoing, Progressing Intervention: Promote Activity and Functional [place] Flowsheets Taken 05/16/20251999 by Ivan Slaughter RN [...] mellitus - type 2 -Home medications: CGM: [employer]an[employer] G7 Insulin regimen: U500 insulin: prescription for [...] -Diabetes education: completed 05/10 -Follow-up plan: home beater boss - Dr Anette Kendall -Tentative discharge recommendations: -pt will need close monitoring by rehab facility provider as changes in diet and activity level maylead to changes in glycemic patterns and insulin requirement NOTE: -patient reports that once the new year hits, he worries about the cost of U500 insulin --> discussed cost through [employer] - should be able to get vials of U500 at $35 per vial. Also discussed contacting [employer] directly for the financial assistance program. -hopefully [...] team via secure chat or page us [phone] during -7p, Thursday-Thursday. For after hours please [...] Ongoing, Progressing Intervention: Promote Activity and Functional [place] Flowsheets (Taken 05/16/20251948) Self-Care Promotion: independence encouraged * Progress Notes - Chayo Jennings RN - 05/16/2025 2:16 PM EST Case Management Adult Progress Note Gonzalo Smalls 49 y.o. male CSN: [id number] Admission: 04/27/2025 9:29 PM Primary Problem: Diabetic foot ulcer Anticipated Discharge Date: 05/18/25 Pt is in a need for rehab placement and was referred and accepted by Merly Espinoza- LOLA CM spoke with Araceli in admission, ph#[phone] who confirmed pts acceptance. Pt updated and [...] Note Gonzalo Smalls 49 y.o. male CSN: [id number] This is a 49 y.o. male patient was admitted to [facility] with the diagnosis of Diabetic Foot [...] Hayward APRN, [facility] is Dr. Garvey in [place], [place]. Medication Education instructions given: The use [...] Prevention , pt reports he has a bad cloth checker as well Follow Ups: Provided with educational [...] has been following with urology outpatient at [facility]. They have postulated this to be related [...] the video go to this web address: [email or web address] Or, scan this QR code with your [...] to gently smooth the nail. Have a bad cloth checker trim your nails if you can't see [...] remove corns, calluses, or warts by yourself. Yzeb-jvv-[id number] products can burn or damage your skin. [...] your primary care doctor or by a bad cloth checker. This is a doctor who specializes in foot care. Some diabetes centers have regular foot clinics. Last Reviewed Date: 2024 00:00:00 ?? [id number] [employer]. All rights reserved. This information is not intended as a substitute for professional medical care. Always follow your healthcare professional's instructions. * Ruy Baires - Vivian Garcia RN - 05/16/2025 11:06 AM EST Images from the original note were not included. [id number] Inspecting Your Feet (Diabetes) [id number]-cg-[id number]: Last Reviewed Date: 2024 00:00:00 ?? [id number] [employer]. All rights reserved. This information is not [...] (H) 05/14/2025 I reviewed bg tracing in [facility] glucose timeline 05/16/25 ASSESSMENT Hospital Course: [...] -Diabetes education: completed 05/10 -Follow-up plan: home beater boss - Anette Kendall -Tentative discharge recommendations: -pt will need close monitoring by rehab facility provider as changes in diet and activity level maylead to changes in glycemic patterns and insulin requirement NOTE: -patient reports that once the new year hits, he worries about the cost of U500 insulin --> discussed cost through [employer] - should be able to get vials of U500 at $35 per vial. Also discussed contacting [employer] directly for the financial assistance program. -patient with plans to discharge to [facility] once able - need to check with [facility] to see if they are okay with utilizing U500 insulin if patient is able to bring in his own supply Insulin regimen - would like patient to utilize U500 home dosing at [facility] Continue Dexcom G7 CGM Likely [...] team via secure chat orpage us at [phone] during 7a-7p, Thursday-Thursday. For after hours please contact the on-call Endocrine Fellow. Thank you for the opportunity to participate in this patient's care. - Reviewed notes by primary team and consulting services to determine appropriate plan of care as in the note. - Discussed plan and management with patient and public health educator Time Spent: I personally spent a [...] Note Gonzalo Smalls 49 y.o. male CSN: [id number] Room/Bed 117/117A Nutrition evaluation type: follow-up Reason [...] Weight Evaluation: Extreme Obesity (BMI > 40) [place] Body Weight (kg): 80.9 Percent [place] Body Weight: 311 Adjusted Body Weight (kg): [...] Regular Adult Carbohydrate Restriction: Consistent CHO 2 (7093-5038 Steven, 80 g/meal) Adult Sodium Restriction: 2,000 mg Na Percent Meals Eaten (%): 75-100% of meals Diet Experience and Nutrition History: Diet Education Provided: Will monitor Pertinent home medications: Albuterol, Bumex, Insulin, Metformin, Ozempic, Aldactone Yarsanism needs: Nutrition Focused Physical Exam: Physical exam [...] has been following with urology outpatient at [facility]. They have postulated this to be related to his diabetes and have had several voiding trials which have failed. Also has un dergone proctoscopy (?) which was normal. 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 and he [...] plan and management with patient. Selin Lee Studio Assistant Division of Hospital Medicine [facility] * Care Plan - Santy Garcia RN - 05/15/2025 11:50 AM EST Problem: Skin Injury Risk Increased Goal: Skin Health and Integrity Outcome: Ongoing, Progressing Problem: Adult Inpatient Plan of Care Goal: Plan of Care Review Outcome: Ongoing, Progressing Flowsheets (Taken 05/15/2025 4819) Progress: improving Plan of Care Reviewed With: [...] Note Gonzalo Smalls 49 y.o. male CSN: [id number] Admission: 04/27/2025 9:29 PM Primary Problem: Diabetic foot ulcer Anticipated Discharge Date: TBD Pt was referred to many SNF in and out of [place]. Few SNF are considering accepting the pt along with [facility], ph#[phone]. LOLA TOVAR spoke with Araceli- admission at [facility]. Araceli is stating that she is checking [...] mellitus - type 2 -Home medications: CGM: [employer] G7 Insulin regimen: U500 insulin: prescription for [...] -Diabetes education: completed 05/10 -Follow-up plan: home beater boss - Anette Kendall -Tentative discharge recommendations: -pt will need close monitoring by rehab facility provider as changes in diet and activity level maylead to changes in glycemic patterns and insulin requirement NOTE: -patient reports that once the new year hits, he worries about the cost of U500 insulin --> discussed cost through [employer] - should be able to get vials of U500 at $35 per vial. Also discussed contacting [employer] directly for the financial assistance program. -patient with plans to discharge to [facility] once able - need to check with [facility] to see if they are okay with utilizing U500 insulin if patient is able to bring in his own supply Insulin regimen - would like patient to utilize U500 home dosing at [facility] Continue Dexcom G7 CGM Likely [...] team via secure chat orpage us at [phone] during 7a-7p, Thursday-Thursday. For after hours please [...] (H) 05/12/2025 I reviewed bg tracing in [facility] glucose timeline 05/14/25 ASSESSMENT Hospital Course: [...] -Diabetes education: completed 05/10 -Follow-up plan: home beater boss - Anette Kendall -Tentative discharge recommendations: -pt will need close monitoring by rehab facility provider as changes in diet and activity level maylead to changes in glycemic patterns and insulin requirement NOTE: -patient reports that once the new year hits, he worries about the cost of U500 insulin --> discussed cost through [employer] - should be able to get vials of U500 at $35 per vial. Also discussed contacting [employer] directly for the financial assistance program. -patient with plans to discharge to [facility] once able - need to check with [facility] to see if they are okay with utilizing U500 insulin if patient is able to bring in his own supply Insulin regimen - would like patient to utilize U500 home dosing at [facility] Continue Dexcom G7 CGM Likely [...] via secure chat or page us at [phone] during 7a-7p, Thursday-Thursday. For after hours please [...] Ongoing, Progressing Intervention: Promote Activity and Functional [place] Flowsheets Taken 05/14/2025945 Self-Care Promotion: independence encouraged BADL personal objects within reach BADL personal routines maintained meal set-up provided Taken 05/14/2025 0800 Activity Assistance Provided: assistance, stand-by assistance, 2 people Taken 05/13/2025 09 Adaptive Equipment Use: used independently Problem: Self-Care Deficit Goal: Improved Ability to Complete Activities of Daily Living Outcome: Ongoing, Progressing Intervention: Promote Activity and Functional [place] Flowsheets Taken 05/14/202546 Self-Care Promotion: independence encouraged [...] has been following with urology outpatient at [facility]. They have postulated this to be related to his diabetes and have had several voiding trials which have failed. Also has un dergone proctoscopy (?) which was normal. 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 and he [...] plan and management with patient. Selin Lee Studio Assistant Division of Hospital Medicine [facility] * Care Plan - Asiya [...] Ongoing, Progressing Intervention: Promote Activity and Functional [place] Flowsheets (Taken 05/13/20251999) Activity Assistance Provided: assistance, [...] (H) 05/11/2025 I reviewed bg tracing in [facility] glucose timeline 05/13/25 ASSESSMENT Hospital Course: Gonzalo [...] -Diabetes education: completed 05/10 -Follow-up plan: home beater boss - Anette Kendall -Tentative discharge recommendations: -pt will need close monitoring by rehab facility provider as changes in diet and activity level maylead to changes in glycemic patterns and insulin requirement NOTE: -patient reports that once the new year hits, he worries about the cost of U500 insulin --> discussed cost through [employer] - should be able to get vials of U500 at $35 per vial. Also discussed contacting [employer] directly for the financial assistance program. -patient with plans to discharge to [facility] once able - need to check with [facility] to see if they are okay with utilizing U500 insulin if patient is able to bring in his own supply Insulin regimen - would like patient to utilize U500 home dosing at [facility] Continue Dexcom G7 CGM Likely [...] via secure chat or page us at [phone] during 7a-7p, Thursday-Thursday. For after hours please [...] Ongoing, Progressing Intervention: Promote Activity and Functional [place] Flowsheets Taken 05/13/2025 0931 Adaptive Equipment Use: [...] has been following with urology outpatient at [facility]. They have postulated this to be related to his diabetes and have had several voiding trials which have failed. Also has un dergone proctoscopy (?) which was normal. 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 and he [...] the labs, [facility]. Current condition is not at [...] plan and management with patient. Selin Lee Studio Assistant Division of Hospital Medicine [facility] * Care Plan - Haritha [...] Ongoing, Progressing Intervention: Promote Activity and Functional [place] Flowsheets (Taken 05/12/20252128) Activity Assistance Provided: assistance, 2 people Self-Care Promotion: independence encouraged BADL personal objects within reach BADL personal routines maintained meal set-up provided * Progress Notes - Max Alexander - 05/12/2025 4:32 PM EDT Case Management Adult Progress Note Gonzalo Blackman Smalls 49 y.o. male CSN: [id number] Admission: 04/27/2025 9:29 PM Primary Problem: Diabetic foot ulcer Anticipated Discharge Date: TBD Plan of care reviewed with pt's care team; and per MD, pt is medically ready for discharge pending placement. SW sent 145 Referral via [facility]. SW will continue to follow-up with pt's MD and care team on their progress and discharge plan. Max Alexander MSW, ANALYZER SALES Senior Strap Setter/Case Management [facility] * Progress Notes - Selin [...] has been following with urology outpatient at [facility]. They have postulated this to be related to his diabetes and have had several voiding trials which have failed. Also has un dergone proctoscopy (?) which was normal. 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 and he [...] the labs, vitals, and [facility]. Current condition is not at [...] plan and management with patient. Selin Lee Studio Assistant Division of Hospital Medicine [facility] * Progress Notes - Lynda Choudhury, MANAGER CAMP - 05/12/2025 12:58 PM EDT Endocrine - [...] -Diabetes education: completed 05/10 -Follow-up plan: home beater boss - Anette Kendall -Tentative discharge recommendations: -pt [...] at $35 per vial. Also discussed contacting [employer] directly for the financial assistance program. -patient with plans to discharge to [facility] once able - need to check with [facility] to see if they are okay with utilizing U500 insulin if patient is able to bring in his own supply Insulin regimen - would like patient to utilize U500 home dosing at [facility] Continue Dexcom G7 CGM Likely [...] via secure chat or page us at [phone] during 7a-7p, Thursday-Thursday. For after hours please [...] 1. Other chronic osteomyelitis of right foot ([facility]/HCC) 2. Diabetic foot ulcer with osteomyelitis [...] remission, Anxiety disorder, unspecified, Arthritis, Atrial fibrillation ([facility]), CAP (community acquired pneumonia) (05/19/2024), Cellulitis [...] understanding. Participants in Care Family/Caregiver Present: No Shift Supervisor: Not Applicable Presentation Oxygen Therapy: Supplemental oxygen [...] of Function Receives Help From: Spouse Mobility [place]: Independent gait with device ADL Performance: Needs assistance Bathing: Needs assist Upper Body Dressing: Needs assist Lower Body Dressing: Needs assist Grooming: Needs assist Toileting: Independent Eating: Independent Home Management Skills: Needs assist Patient/Family Goals Return home at [facility] Objective Pain Pt reported 7/10 pain in [...] Mobility Bed Mobility Exam: Scooting/Bridging Level of [place]: Contact guard (scooting hips forward to edge of bed) Physical/Nonphysical Assist: Verbal Cues, Minimal cues Assistive Device: Overhead trapeze Bed Mobility Exam: Supine to Sit Level of [place]: Minimum assist (75% patient's effort) Physical/Nonphysical Assist: HOB elevated, Verbal Cues Assistive Device: Overhead trapeze Bed Mobility Exam: Sit to Supine Level of [place]: Stand-by assist Physical/Nonphysical Assist: Verbal Cues, Minimal cues Assistive Device: Overhead trapeze Transfers Transfer Exam: Sit to stand Level of [place]: Maximum assist (25% patient's effort) (x3 reps from edge of bed, good adherence to NWB RLE) Physical/Nonphysical Assist: Verbal Cues, Nonverbal cues (demo/gestures), Additional assist utilized for safety Assistive Device: Walker, rolling (bariatric) Transfer Exam: Stand to Sit Level of [place]: Maximum assist (25% patient's effort) Physical/Nonphysical Assist: [...] \ Standardized Assessments Standardized Assessments Standardized Assessments: [facility] 6-Clicks Mobility Assessment [facility] 6-Clicks Mobility Assessment Difficulty patient [...] climbing 3-5 steps with a railing?: Unable [facility] 6-Clicks Mobility Assessment Total : [...] session. Participants in Care Family/Caregiver Present: No Shift Supervisor: Not Applicable Presentation Oxygen Therapy: Supplemental oxygen [...] of Function Receives Help From: Spouse Mobility [place]: Independent gait with device ADL Performance: Needs [...] Mobility Bed Mobility Exam: Scooting/Bridging Level of [place]: Contact guard (scooting hips forward to edge of bed) Physical/Nonphysical Assist: Verbal Cues, Minimal cues Bed Mobility Exam: Supine to Sit Level of [place]: Minimum assist (75% patient's effort) Physical/Nonphysical Assist: HOB elevated, Verbal Cues Assistive Device: Overhead trapeze Bed Mobility Exam: Sit to Supine Level of [place]: Stand-by assist Physical/Nonphysical Assist: Verbal Cues, Minimal cues Assistive Device: Overhead trapeze Transfers Transfer Exam: Sit to stand Level of [place]: Maximum assist (25% patient's effort) (x3 reps from edge of bed, good adherence to NWB RLE) Physical/Nonphysical Assist: Verbal Cues, Nonverbal cues (demo/gestures), Additional assist utilized for safety Assistive Device: Walker, rolling (bariatric) Transfer Exam: Stand to Sit Level of [place]: Maximum assist (25% patient's effort) Physical/Nonphysical Assist: [...] upper extremity support, Left upper extremity support ([facility] RW) Static Standing-Level of Assistance: [...] x3 reps of sit to stand to [facility] with max Ax2 persons each time, able [...] Where Assessed: Other (Comment) (in stance at [facility] RW level) Toileting Interventions: Pt with small incontinent BM, required dep A for hygiene to buttocks in stance at [facility] level with assistance from 2nd person needed [...] a helper. 5 Set-up or Clean-up Assistance [place] sets up or cleans up; patient completes activity. [place] assists only prior to or following the activity. 4 Supervision or touching assistance [place] provides verbal cues and/or touching/steadying and/or contact guard assistance as patient completes activity. Assistance may be provided throughout the activity or intermittently. 3 Partial/Moderate Assistance [place] does LESS THAN HALF the effort. [place] lifts, holds or supports trunk or limbs, but provides less than half the effort. 2 Substantial/Maximal Assistance [place] does MORE THAN HALF the effort. [place] lifts or holds trunkor limbs and provides more than half the effort. 1 Dependent [place] does ALL of the effort. Patient does [...] Note Gonzalo Smalls 49 y.o. male CSN: [id number] Admission: 04/27/2025 9:29 PM Primary Problem: Diabetic foot ulcer Anticipated Discharge Date: TBD RN CM informed by bedside RN that pt's weight was obtained and current weight is 244.3kg (538.5 lbs)- due to pt being over 500 lbs [facility] is not able to accept the [...] Note Gonzalo Smalls 49 y.o. male CSN: [id number] Admission: 04/27/2025 9:29 PM Primary Problem: Diabetic foot ulcer Anticipated Discharge Date: TBD LOLA TOVAR f/ u with [facility]- admission at [facility]. Suze is stating that they might [...] -Diabetes education: completed 05/10 -Follow-up plan: home beater boss - Anette Kendall -Tentative discharge recommendations: -pt [...] at $35 per vial. Also discussed contacting [employer] directly for the financial assistance program. -patient with plans to discharge to [facility] once able - need to check with [facility] to see if they are okay with utilizing U500 insulin if patient is able to bring in his own supply Insulin regimen - would like patient to utilize U500 home dosing at [facility] Continue Dexcom G7 CGM Likely [...] via secure chat or page us at [phone] during 7a-7p, Thursday-Thursday. For after hours please [...] has been following with urology outpatient at [facility]. They have postulated this to be related to his diabetes and have had several voiding trials which have failed. Also has un dergone proctoscopy (?) which was normal. 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 and he [...] plan and management with patient. Selin Lee Studio Assistant Division of Hospital Medicine [facility] * Care Plan - Genaro [...] has been following with urology outpatient at [facility]. They have postulated this to be related to his diabetes and have had several voiding trials which have failed. Also has un dergone proctoscopy (?) which was normal. 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 and he [...] plan and management with patient. Selin Lee Studio Assistant Division of Hospital Medicine [facility] * Progress Notes - Chayo Jennings RN - 05/10/2025 8:59 AM EDT Case Management Adult Progress Note Gonzalo Smalls 49 y.o. male CSN: [id number] Admission: 04/27/2025 9:29 PM Primary Problem: Diabetic foot ulcer Anticipated Discharge Date: TBD LOLA TOVAR f/u on [facility] referral and was told that [facility] physician declined pt's acceptance to [facility]. RN CMvisited with the pt [...] mellitus - type 2 -Home medications: CGM: Xanitos G7 Insulin regimen: U500 insulin: prescription for [...] -Diabetes education: completed 05/10 -Follow-up plan: home beater boss - Anette Kendall -Tentative discharge recommendations: -pt will need close monitoring by rehab facility provider as changes in diet and activity level maylead to changes in glycemic patterns and insulin requirement NOTE: -patient reports that once the new year hits, he worries about the cost of U500 insulin --> discussed cost through [employer] - should be able to get vials of U500 at $35 per vial. Also discussed contacting [employer] directly for the financial assistance program. -patient with plans to discharge to [facility] once able - need to check with [facility] to see if they are okay with utilizing U500 insulin if patient is able to bring in his own supply Insulin regimen - would like patient to utilize U500 home dosing at [facility] Continue Dexcom G7 CGM Likely [...] team via secure chat orpage us at [phone] during 7a-7p, Thursday-Thursday. For after hours please [...] sit <> stand transfers Visitors Present none Shift Supervisor (if applicable) N/a OBJECTIVE PAIN Pt endorses [...] Mobility Bed Mobility Exam: Scooting/Bridging Level of [place]: Stand-by assist Physical/Nonphysical Assist: Verbal Cues, Minimal cues Assistive Device: Overhead trapeze Bed Mobility Exam: Supine to Sit Level of [place]: Stand-by assist Physical/Nonphysical Assist: Verbal Cues, Minimal cues, HOB elevated Assistive Device: Overhead trapeze Bed Mobility Exam: Sit to Supine Level of [place]: Stand-by assist Physical/Nonphysical Assist: Verbal Cues, Minimal cues Assistive Device: Overhead trapeze Transfers Transfer Exam: Sit to stand Level of [place]: Maximum assist (25% patient's effort) Physical/Nonphysical Assist: Set-up required, Additional assist utilized for safety, Maximal cues, Verbal Cues, Nonverbal cues (demo/gestures) Assistive Device: Hand held assist Transfer Exam: Stand to Sit Level of [place]: Maximum assist (25% patient's effort) Physical/Nonphysical Assist: [...] session Participants in Care Family/Caregiver Present: No Shift Supervisor: Not Applicable Presentation Oxygen Therapy: Supplemental oxygen [...] sequencing Bed Mobility Exam: Scooting/Bridging Level of [place]: Stand-by assist Physical/Nonphysical Assist: Verbal Cues, Minimal cues Assistive Device: Overhead trapeze Bed Mobility Exam: Supine to Sit Level of [place]: Stand-by assist Physical/Nonphysical Assist: Verbal Cues, Minimal cues, HOB elevated Assistive Device: Overhead trapeze Bed Mobility Exam: Sit to Supine Level of [place]: Stand-by assist Physical/Nonphysical Assist: Verbal Cues, Minimal [...] placement, sequencing, weight shifting, appropriate use of INTERNET MARKETING ASSISTANT, and maintaining NWB on LLE. Tactile cues provided to assist in sequencing and weight shifting. Transfer Exam: Sit to stand Level of [place]: Maximum assist (25% patient's effort) Physical/Nonphysical Assist: Set-up required, Additional assist utilized for safety, Maximal cues, Verbal Cues, Nonverbal cues (demo/gestures) Assistive Device: Hand held assist Transfer Exam: Stand to Sit Level of [place]: Maximum assist (25% patient's effort) Physical/Nonphysical Assist: [...] assistance Static Standing - Interventions: Standing w INTERNET MARKETING ASSISTANT Therapeutic Activity (40 minutes) See bed mobility, balance, and transfers sections for more detail. Standardized Assessments [facility] 6-Clicks Mobility Assessment Difficulty patient [...] climbing 3-5 steps with a railing?: Unable [facility] 6-Clicks Mobility Assessment Total : [...] PM EDT Associated attestation - Ron Martinez N - 05/09/2025 3:00 PM EDT As the supervising therapist, I was present during the entire PT treatment and have reviewed and agree with this document written by the student therapist for this patient on this date/time. Ron Martinez, PT, DPT * Consults - Kylee Ann, RD - 05/09/2025 8:22 AM EDT Adult Nutrition Evaluation Note Gonzalo Smalls 49 y.o. male CSN: [id number] Room/Bed 117/117A Nutrition evaluation type: follow-up Reason [...] Supplemental oxygen O2 Delivery Method: Nasal cannula [place] Coma Scale Score: 15 Miguel Ángel Scale [...] Weight Evaluation: Extreme Obesity (BMI > 40) [place] Body Weight (kg): 80.9 Percent [place] Body Weight: 311 Adjusted Body Weight (kg): [...] Regular Adult Carbohydrate Restriction: Consistent CHO 2 (7410-2922 Steven, 80 g/meal) Adult Sodium Restriction: 2,000 mg Na Percent Meals Eaten (%): 100% of meals Diet Experience and Nutrition History: Diet Education Provided: Will monitor Pertinent home medications: Albuterol, Bumex, Insulin, Metformin, Ozempic, Aldactone Yarsanism needs: Nutrition Focused Physical Exam: Physical exam [...] mellitus - type 2 -Home medications: CGM: Xanitos G7 Insulin regimen: U500 insulin: prescription for [...] continue to assess need -Follow-up plan: home beater boss - Anette Kendall -Tentative discharge recommendations: NOTE: -patient reports that once the new year hits, he worries about the cost of U500 insulin -patient with plans to discharge to [facility] once able - need to check with [facility] to see if they are okay with utilizing U500 insulin if patient is able to bring in his own supply Insulin regimen - would like patient to utilize U500 home dosing at [facility] Continue Dexcom G7 CGM Likely [...] via secure chat or page us at [phone] during 7a-7p, Thursday-Thursday. For after hours please [...] has been following with urology outpatient at [facility]. They have postulated this to be related to his diabetes and have had several voiding trials which have failed. Also has un dergone proctoscopy (?) which was normal. 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 and he [...] Ready for Discharge:Ready now, awaiting placement to [facility] Selin Lee Studio Assistant Division of Hospital Medicine [facility] * Care Plan - [place] [...] continue to assess need -Follow-up plan: home beater boss - Anette Kendall -Tentative discharge recommendations: NOTE: -patient reports that once the new year hits, he worries about the cost of U500 insulin -patient with plans to discharge to [facility] once able - need to check with [facility] to see if they are okay with utilizing U500 insulin if patient is able to bring in his own supply Insulin regimen - would like patient to utilize U500 home dosing at [facility] Continue Dexcom G7 CGM Likely continue Ozempic Likely continue metformin May substitute for therapeutic equivalent per insurance and retail PharmD approval -Supplies/scripts needed: Ensure patient has working glucose meter and supplies as back-up to CGM Lynda Choudhury, MANAGER CAMP DM/Endo team will continue to follow. Please notify us as patient nears discharge for final recommendations Please contact Lynda Choudhury APRN [place] Adult Inpatient Diabetes team via secure chat or page us at [phone] during 7a-7p, Thursday-Thursday. For after hours please [...] Outcome: Ongoing, Progressing * Progress Notes - Mayar Apodaca RN - 05/08/2025 1:40 PM EDT Case Management Adult Progress Note Gonzalo Smalls 49 y.o. male CSN: [id number] Admission: 04/27/2025 9:29 PM Primary Problem: Diabetic [...] acute rehab. RNCM awaiting MD approval from [facility]. Liaison will reach out with [...] 05/08/2025 10:19 AM Wound Image Wound Assessment [place];Red (moist) Margins Well-defined edges [place]-Wound Assessment Intact [...] the video go to this web address: [email or web address] Or, scan this QR code with your smart phone ?? [facility] * Thi Chavarria RN - 05/08/2025 10:55 AM EDT Images from the original note were not included. Type 2 diabetes: 7 Ways to Prevent Assisted Complications - Video Watch this video to [...] the video go to this web address: [email or web address]/[email or web address] Or, scan this QR code with your [...] to gently smooth the nail. Have a bad cloth checker trim your nails if you can't see [...] remove corns, calluses, or warts by yourself. Pmir-qcu-fnvpumu products can burn or damage your skin. [...] your primary care doctor or by a bad cloth checker. This is a doctor who specializes in foot care. Some diabetes centers have regular foot clinics. Last Reviewed Date: 2024 00:00:00 ?? 1290-0023 [employer]. All rights reserved. This information is not [...] the video go to this web address: [email or web address] Or, scan this QR code with your smart phone ?? [facility] * Consults - Beatriz Hu DO - 05/08/2025 8:38 AM EDTAssociated Order(s): Inpatient consult to Urology Inpatient consult to Urology Consult performed by: Beatriz Hu DO Consult ordered by: Diane Guzman MD [facility] Urology Consult Note 05/08/25 Service Requesting Consultation: Hospital Medicine CC: urinary retention HPI: Gonzalo Smalls is a 49 y.o. male with a past urologic history of urinary retention, recurrent UTIs,BPH, morbid obesity who presented to [facility] ED with diabetic foot ulcer. On [...] Urology was consulted for urinary retention with barebr in place. Barber was placed around 7 days agoper patient and per staff, it is draining clear yellow urine 18Fr. He states that around 3 months ago he started to have dribbling from urethra and was found to have pyelonephritis and hydronephrosisdue to incomplete emptying he states. After this he presented to an [facility] urologist Dr. Painting who stated to [...] (NEURONTIN) 600 mg, 3 times daily HYDROcodone-acetaminophen ([place]) 10-325 MG tablet 1 tablet, Every 6 hours PRN Insulin Pen Needle ([place]) 31G X 5 MM misc USE TO [...] obesity and uncontrolled diabetes who presented to [facility] ED with diabetic foot ulcer. On [...] states. After this he presented to an [facility] urologist Dr. Painting who stated to [...] established care with a Dr. Mendenhall an [facility] urologist as this is closer to [...] established care with a Dr. Mendenhall an [facility] urologist as this is closer to home and will call him to schedule a follow up appointment as he does not wish to FU with urology because it is too far from home Trudy Hu DO [1] Past Medical History: Diagnosis Date Acute kidney injury 05/19/2024 Alcohol abuse, in remission Alcohol abuse, in remission Anxiety disorder, unspecified Anxiety Arthritis Atrial fibrillation ([facility]/HCC) CAP (community acquired pneumonia) 05/19/2024 Cellulitis [...] has been following with urology outpatient at [facility]. They have postulated this to be related to his diabetes and have had several voiding trials which have failed. Also has un dergone proctoscopy (?) which was normal. 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 and he [...] AM EDT Physical Therapy Treatment Patient Name: Gonzaol Smalls Today's Date: 05/07/2025 PT Discharge Recommendations: [...] Mobility Bed Mobility Exam: Scooting/Bridging Level of [place]: Stand-by assist Physical/Nonphysical Assist: Verbal Cues Bed Mobility Exam: Supine to Sit Level of [place]: Contact guard Physical/Nonphysical Assist: Set-up required, Verbal Cues, Minimal cues Bed Mobility Exam: Sit to Supine Level of [place]: Minimum assist (75% patient's effort) Physical/Nonphysical Assist: Set-up required, Verbal Cues, Minimal cues Transfers Transfer Exam: Sit to stand Level of [place]: (Pt attempted with use of bariatric RW; [...] return to supine. Therapeutic Exercise Access Code: [email or web address] HEP printed and pt received copy with [...] provided based on observable deficits.* Level of [place] Interventions Grooming Patient demo's adequate BUE strength/ROM [...] maintain WB status. FUNCTIONAL MOBILITY Level of [place] Physical/Non-physical Assist Adaptive Equipment Utilized Scooting/ Bridging [...] Appearance Posture: Within Functional Limits Level of [place] Balance Support Static Sit Standby assist Feet supported Dynamic Sit Standby assisst Feet supported THERAPEUTIC EXERCISE INTERVENTIONS (10 minutes) Treatment Details The patient was educated re: implementation of BUE HEP in order to target muscle groups necessary for functional mobility and ADL independence. HEP printed and each exercise reviewed, pt verbalized understanding. LiveStub Access Details (if appropriate) Access Code: [email or web address] URL: [email or web address] Date: 10/26/25 Exercises Included - Seated Elbow [...] wound healing while inpatient #Urinary retention s/p babrer - HX several months worsening progressive urinary retention since was hospitalized for abdominal infection which has been following with urology outpatient at [facility]. They have postulated this to be related to his diabetes and have had several voiding trials which have failed. Also has un dergone proctoscopy (?) which was normal. 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 and he [...] now * Progress Notes - Aileen Leonardo, MANAGER CAMP - 05/07/2025 7:33 AM EDT Endocrine - [...] continue to assess need -Follow-up plan: home beater boss - Anette Kendall -Tentative discharge recommendations: NOTE: -patient reports that once the new year hits, he worries about the cost of U500 insulin -patient with plans to discharge to [facility] once able - need to check with [facility] to see if they are okay with utilizing U500 insulin if patient is able to bring in his own supply Insulin regimen - would like patient to utilize U500 home dosing at [facility] Continue Dexcom G7 CGM Likely [...] Adult Inpatient Diabetes team via secure chat orpaAdmify us at [phone] during 7a-7p, Thursday-Thursday. For after hours please [...] has been following with urology outpatient at [facility]. They have postulated this to be related to his diabetes and have had several voiding trials which have failed. Also has un dergone proctoscopy (?) which was normal. 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 and he [...] now * Progress Notes - Aileen Leonardo, MANAGER CAMP - 05/06/2025 7:46 AM EDT Endocrine - Diabetes Consult follow-up: Subjective: 24 hour update: -patient discharging to [facility] around Thursday or Thursday - [...] (H) 05/04/2025 I reviewed bg tracing in [facility] glucose timeline 05/06/25 ASSESSMENT Hospital Course: [...] continue to assess need -Follow-up plan: home beater boss - Anette Kendall -Tentative discharge recommendations: -patient discharging to [facility] around Thursday or Thursday - need to check with [facility] to see if they are [...] team via secure chat orpage us at [phone] during 7a-7p, Thursday-Thursday. For after hours please [...] is in abx, has his CHG and [place] wipes done in this shift Problem: Mobility [...] vascular surgery; wound vac applied 05/03 by [facility] Wound Assessment: Wound 05/01/25 Surgical Toe (Comment which one) Anterior;Right (Active) Date First Assessed/Time First Assessed: 05/01/25 0805 Present on Original Admission: No Hand Hygiene Completed: Yes Primary Wound Type: Surgical Location: Toe (Comment which one) Wound Location Orientation: Anterior;Right Assessments 05/05/2025 11:44 AM Wound Image Wound Assessment [place];Red (moist , full thickness) Margins Well-defined edges [...] no orders noted for wound vac, maessaged [facility] team for guidance. Orders placedfor nursing to [...] wound vac in use Patient evaluated by [facility] nurse, individualized recommendations placed and care plan interventions updated; see wound care note for details regarding recommendations to support optimal wound healing. * Progress Notes - Mayra Apodaca RN - 05/05/2025 12:30 PM EDT Case Management Adult Progress Note Gonzalo Smalls 49 y.o. male CSN: [id number] Admission: 04/27/2025 9:29 PM Primary Problem: Diabetic [...] No MDRO isolated 04/27/25 Blood culture NGTD [facility] Culture Data: - 04/25/25: Blood culture NGTD [...] pathology. Patient is planned to discharge to [facility]. Recommend close follow-up with vascular [...] PA-C Division of Infectious Diseases Available by [employer] Chat History, assessment, and plan discussed with ID attending, Dr. Cihntan Doran The following complex inpatient infectious disease [...] via secure chat or page us at [phone] during 7a-7p, Thursday-Thursday. For after hours please [...] precautions. Bed Mobility Exam: Rolling/Turning Level of [place]: Contact guard Physical/Nonphysical Assist: Verbal Cues, Moderate cues Bed Mobility Exam: Scooting/Bridging Level of [place]: Stand-by assist Bed Mobility Exam: Supine to Sit Level of [place]: Contact guard Physical/Nonphysical Assist: Verbal Cues Bed Mobility Exam: Sit to Supine Level of [place]: Stand-by assist Patient performed rolling bilaterally for placement of lift pad. Transfers Transfer Exam: Sit to stand Level of [place]: (Patient unable to perform without engaging right [...] promote tempo and full ROM. Standardized Assessments [facility] 6-Clicks Mobility Assessment Difficulty patient [...] climbing 3-5 steps with a railing?: Unable [facility] 6-Clicks Mobility Assessment Total : [...] help from Spouse Level of Mobility Mobility [place] History of Falls ADL Performance Needs assistance [...] to therapy this date. Visitors Present No Shift Supervisor (if applicable) OBJECTIVE PAIN Pain Score (0-10): [...] sba for bed mobility tasks. Level of [place] Adaptive Equipment Utilized Comments Feeding Grooming Setup washing face/hands Bathing Upper Body Dressing Lower Body Dressing Shoe Level of Assistance: Dependent Toileting IADLs Health Management Community Re-Entry BALANCE Postural Appearance INTERVENTIONS Level of [place] Balance Support Comments Static Sit Standby assist [...] weight shifting to promote safety. Level of [place] Physical/Non-physical Assist Adaptive Equipment Utilized Rolling/ Turning [...] No MDRO isolated 04/27/25 Blood culture NGTD [facility] Culture Data: - 04/25/25: Blood culture NGTD [...] PA-C Division of Infectious Diseases Available by Modafirma History, assessment, and plan discussed with ID [...] mL IVPB (vial adapter required) 2 g [id number] Diane Guzman MD 36.7 mL/hr at 05/03/25 [...] Subcutaneous TID with meals Sarah Martinez APRN 30 Units at 05/03/251810 Insulin Lispro (Admelog, HumaLOG) 100 UNIT/ML injection 8 Units 8 Units Subcutaneous BID PRN Sarah Martinez MANAGER CAMP insulin NPH (Isophane) (HumuLIN N,NovoLIN N) injection 50 Units 50 Units Subcutaneous BID Sarah Martinez, MANAGER CAMP 50 Units at 05/03/252043 ipratropium-albuterol (Duo-Neb) 0.5-2.5 [...] (Micotin) 2 % powder Topical BID Diane uGzman MD Given at 05/03/252048 oxyCODONE (Roxicodone) immediate [...] (H) 05/02/2025 I reviewed bg tracing in [facility] glucose timeline 05/04/25 ASSESSMENT Hospital Course: [...] continue to assess need -Follow-up plan: home beater boss - Anette Kendall -Tentative discharge recommendations: Insulin [...] team via secure chat orpage us at [phone] during 7a-7p, Thursday-Thursday. For after hours please [...] from the original note were not included. [facility] Department of Surgery Division of [...] an 49 y.o. male who presented to [facility] 04/27/2025 with diabetic foot ulcer now [...] Note Gonzalo Smalls 49 y.o. male CSN: [id number] Admission: 04/27/2025 9:29 PM Primary Problem: Diabetic [...] No MDRO isolated 04/27/25 Blood culture NGTD [facility] Culture Data: - 04/25/25: Blood culture NGTD [...] PA-C Division of Infectious Diseases Available by Modafirma History, assessment, and plan discussed with ID [...] Subcutaneous TID with meals Martinez, Sarah P, MANAGER CAMP 30 Units at 05/03/25 0920 Insulin Lispro (Admelog, HumaLOG) 100 UNIT/ML injection 6 Units 6 Units Subcutaneous BID PRN Silvia Martinezi P, MANAGER CAMP insulin NPH (Isophane) (HumuLIN N,NovoLIN N) injection 42 Units 42 Units Subcutaneous BID Sarah Martinez P, MANAGER CAMP 42 Units at 05/03/25 0919 ipratropium-albuterol (Duo-Neb) [...] Days * Progress Notes - Sarah Martinez, MANAGER CAMP - 05/03/2025 7:55 AM EDT Endocrine - [...] continue to assess need -Follow-up plan: home beater boss - Anette Kendall -Tentative discharge recommendations: Insulin [...] via secure chat or page us at [phone] during -7p, Thursday-Thursday. For after hours please [...] from the original note were not included. [facility] Department of Surgery Division of Vascular [...] No MDRO isolated 04/27/25 Blood culture NGTD [facility] Culture Data: - 04/25/25: Blood culture NGTD [...] PA-C Division of Infectious Diseases Available by Modafirma History, assessment, and plan discussed with ID [...] Note Gonzalo Smalls 49 y.o. male CSN: [id number] Room/Bed 117/117A Nutrition evaluation type: assessment Reason [...] at bedside. 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 No known unintentional weight changes, UBW 570#. [...] Weight Evaluation: Extreme Obesity (BMI > 40) [place] Body Weight (kg): 80.9 Percent [place] Body Weight: 311 Adjusted Body Weight (kg): [...] Regular Adult Carbohydrate Restriction: Consistent CHO 1 (1920-8472 Steven, 65 g/meal) Adult Sodium Restriction: 2,000 mg Na Percent Meals Eaten (%): 68% avg x 5 meals Diet Experience and Nutrition History: Diet Education Provided: Will monitor Pertinent home medications: Albuterol, Bumex, Insulin, Metformin, Ozempic, Aldactone Yarsanism needs: Nutrition Focused Physical Exam: Physical exam [...] from the original note were not included. [facility] Department of Surgery Division of Vascular [...] snacking overnight while watching the games including Fuelzee, goldfish, ritz crackers and other snacks -no [...] treatment -plan and management discussed with patient, public health educator, bedside RN NOTE: -Patient utilizes U500 insulin pen at home. With the U500 pen, a conversion is not needed. Typically patient's required a 70% reduction in home U500 dosing. 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: home beater boss - Anette Kendall -Tentative discharge recommendations: Insulin [...] via secure chat or page us at [phone] during 7a-7p, Thursday-Thursday. For after hours please [...] consulted and rec amputation vs transfer to [facility] for podiatry input about foot salvage : cannot transfer to [facility] given weight limit, pod team cannot [...] Note Gonzalo Smalls 49 y.o. male CSN: [id number] Admission: 04/27/2025 9:29 PM Primary Problem: Diabetic [...] from the original note were not included. [facility] Department of Surgery Division of [...] nursing staff. I have notified senior resident/attending trousseau consultant with any issues or concerns. Leidy Velasco [...] bony pathology, duration TBD - Will contact [facility] tomorrow to check on urine culture results - Please obtain adult ID screening labs: Hep A IgG, Hep B sAb, Hep B sAg, and Hep B total core Ab - Plan of care and recommendations discussed with patient's primary provider Thank you for allowing us to participate in this patient's care. ID will follow. Janelle Phan PA-C Division of Infectious Diseases Available by Modafirma History, assessment, and plan discussed with ID [...] 1 mg Intramuscular q15 min PRN Alen Mean CRNA, DNP [Transfer Hold] dilTIAZem CD (Cardizem [...] mcg/mL infusion Intravenous PRN Muzic, Og A, UNIT TENDER 8 mcg at 05/01/25 0841 fentaNYL (Sublimaze) injection Intravenous PRN Muzic, Og A, UNIT TENDER 25 mcg at 05/01/25 0826 lactated Ringer's infusion Intravenous Continuous PRN Muzic, Og A, UNIT TENDER New Bag at 05/01/25 0728 midazolam (Versed) injection Intravenous PRN Muzic, Og A, UNIT TENDER 1 mg at 05/01/25 0757 [2] Allergies [...] mellitus - type 2 -Home medications: CGM: Xanitos G7 Insulin regimen: U500 insulin: prescription for [...] continue to assess need -Follow-up plan: home beater boss - Anette Kendall -Tentative discharge recommendations: Insulin [...] team via secure chat orpage us at [phone] during 7a-7p, Thursday-Thursday. For after hours please [...] Attending Surgeon(s): * Mary Vicente - Primary Catalogue Clerk(s): * Paula Martinez MD - Resident - [...] consulted and rec amputation vs transfer to [facility] for podiatry input about foot salvage : cannot transfer to [facility] given weight limit, pod team cannot [...] kg/m?? Labs and medications reviewed. Blood glucose [id number] Medications: Current Scheduled Medications[1] Current Continuous Medications[2] [...] continue to assess need -Follow-up plan: home beater boss - Anette Kendall -Tentative discharge recommendations: Insulin [...] PGY-4 Division of Endocrinology, Diabetes and Metabolism [facility] Medically Ready for Discharge: [1] atorvastatin, 40 [...] from the original note were not included. [facility] Department of Surgery Division of Vascular [...] He is unable to be transferred to [facility] for Podiatry due to weight Edited [...] 2LNC at night, recurrent UTIswho presented to [facility] with nonhealing right foot wound. [...] Minimize and Manage Hypoglycemia Flowsheets (Taken 04/30/2025 3517) Hypoglycemia Management: blood glucose monitored * Progress [...] kg/m?? Labs and medications reviewed. Blood glucose [id number]-85 Medications: Current Scheduled Medications[1] Current Continuous [...] continue to assess need -Follow-up plan: home beater boss - Anette Kendall -Tentative discharge recommendations: Insulin [...] PGY-4 Division of Endocrinology, Diabetes and Metabolism [facility] [1] atorvastatin, 40 mg, Oral, Nightly bisoprolol, [...] rec amputation but we can transfer to [facility] for pod input about the surgery for the DM wound Vas team do not feel a debridement would sufficiently treat his wound. Reached out to APT team and plan to transfer him to [facility] Review of Systems Pain in right [...] consulted and rec amputation vs transfer to [facility] for podiatry input about foot salvage [...] continue to assess need -Follow-up plan: home beater boss - Anette Kendall -Tentative discharge recommendations: Insulin [...] Adult Inpatient Diabetes team via secure chat orpaAdmify us at [phone] during 7a-7p, Thursday-Thursday. For after hours please [...] Note Gonzalo Smalls 49 y.o. male CSN: [id number] Admission: 04/27/2025 9:29 PM Primary Problem: Diabetic foot ulcer Lay Out Carpenter reviewed chart and spoke with patient at bedside to complete this Initial Case Management Assessment. PCP: Malcolm Hayward, MANAGER CAMP Emergency Contact: Extended Emergency Contact Information Primary Emergency Contact: Maggie Smalls Mobile Relation: Spouse Preferred language: Occitan Shift Supervisor needed? No Insurance: Primary Visit Coverage Payer Plan Sponsor Code Group Number Group Name THIAGO DAS [facility] [id number] [employer] Primary Visit Coverage Subscriber Subscriber ID Subscriber Name Subscriber [facility] Subscriber Address [id number] GONZALO SMALLS [id number] [address] [id number] Secondary Visit Coverage Payer Plan Sponsor Code Group Number Group Name MEDICARE MEDICARE A & B Secondary Visit Coverage Subscriber Subscriber ID Subscriber Name Subscriber [facility] Subscriber Address [id number] GONZALO SMALLS [phone] [address] [facility] Patient information: Primary Caregiver: Self Support System: Immediate family Daily Living Activities: Functional Status: Minimum assistance Living Arrangements: Spouse/Significant other, Children (daughter) Type of Residence: Private residence, Single Level (3 MICHAEL) [address] [facility] Smoker in the Home?: No [...] line dressing changes Living Will/Advance Directive/Power of Occupational Health Nurse /Guardian: None Additional Comments: Patient admitted for [...] from the original note were not included. [facility] Department of Surgery Division of [...] night, recurrent UTIs who presented to the [facility] on 04/27/2025 with right foot wound. [...] file Social Connections: Unknown (04/24/2023) Received from [facility] Family and Community Support Help with Day-to-Day [...] History Administered Date(s) Administered Moderna COVID-19 Vaccine (Fish Smoker) 12+ years 01/25/2021, 02/22/2021 Pneumococcal Conjugate [...] a day. 09/05/21 Yes Provider, Historical HYDROcodone-acetaminophen ([place]) 10-325 MG tablet Take 1 tablet by [...] Yes Provider, Historical Insulin Pen Needle ([place]) 31G X 5 MM misc USE TO [...] 6 hours as needed for pain. Under [place] law, monthly prescriptions (30 days) can be [...] 2LNC at night, recurrent UTIswho presented to [facility] with nonhealing right foot wound. [...] mg 120 mg Oral Daily Sy De aL Fuente APRN, DNP 120 mg at 04/28/25 [...] by mouth 3 times a day. HYDROcodone-acetaminophen ([place]) 10-325 MG tablet Take 1 tablet by [...] by mouth daily. Insulin Pen Needle ([place]) 31G X 5 MM misc USE TO [...] [X] Family [ ] Friend [ ] Shift Supervisor [X] Medical records HISTORY OF PRESENT ILLNESS: [...] and was treated in theemergency department at [facility] a few days ago where a PICC [...] in the ED 2-3 days ago at [facility]. I contacted [facility] who report blood cultures [...] a day. 09/05/21 Yes Provider, Historical HYDROcodone-acetaminophen ([place]) 10-325 MG tablet Take 1 tablet by [...] Yes Provider, Historical Insulin Pen Needle ([place]) 31G X 5 MM misc USE TO [...] 6 hours as needed for pain. Under [place] law, monthly prescriptions (30 days) can be [...] Will follow-up blood and urine cultures from [facility] for further ID/susceptibilities, obtained 04/25 - Please obtain adult ID screening labs: Hep A IgG, Hep B sAb, Hep B sAg, and Hep B total core Ab - Plan of care and recommendations discussed with patient's primary provider Thank you for allowing us to participate in this patient's care. ID will follow. Janelle Phan PA-C Division of Infectious Diseases Available by Modafirma History, assessment, and plan discussed with ID [...] by mouth 3 times a day. HYDROcodone-acetaminophen ([place]) 10-325 MG tablet Take 1 tablet by [...] by mouth daily. Insulin Pen Needle ([place]) 31G X 5 MM [place] [facility] [...] back pain 04/22/2019 Hypertension 02/18/2019 Morbid obesity ([facility]) 12/24/2016 Procedures Past Medical History Patient has a past medical history of Acute kidney injury (05/19/2024), Alcohol abuse, in remission, Anxiety disorder, unspecified, Arthritis, Atrial fibrillation ([facility]), CAP (community acquired pneumonia) (05/19/2024), Cellulitis [...] in Care Family/Caregiver Present: Yes Family/Caregiver: Spouse Shift Supervisor: Not Applicable Presentation Oxygen Therapy: None (Room [...] Needs assist Patient/Family Goals Return home at [facility]. Objective Pain Pt reports 7/10 pain in [...] pain. Bed Mobility Exam: Rolling/Turning Level of [place]: Maximum assist (25% patient effort) Physical/Nonphysical Assist: Verbal Cues, Moderate cues Assistive Device: Bed rails, Other (INTERNET MARKETING ASSISTANT) Bed Mobility Exam: Scooting/Bridging Level of [place]: Maximum assist (25% patient's effort) (up in bed; Lester forward at EOB) Physical/Nonphysical Assist: Verbal Cues, Moderate cues Assistive Device: Bed rails Bed Mobility Exam: Supine to Sit Level of [place]: Maximum assist (25% patient's effort) Physical/Nonphysical Assist: Verbal Cues, Moderate cues, Set-up required, Additional assist utilized for safety Assistive Device: Other (INTERNET MARKETING ASSISTANT) Bed Mobility Exam: Sit to Supine Level of [place]: Maximum assist (25% patient's effort) Physical/Nonphysical Assist: [...] space Standardized Assessments Standardized Assessments Standardized Assessments: [facility] 6-Clicks Mobility Assessment [facility] 6-Clicks Mobility Assessment Difficulty patient [...] climbing 3-5 steps with a railing?: Unable [facility] 6-Clicks Mobility Assessment Total : [...] with CGA. 2 weeks Written by Maribel ePrea on 04/28/25 at 12:46 PM. * Progress [...] remission, Anxiety disorder, unspecified, Arthritis, Atrial fibrillation ([facility]), CAP (community acquired pneumonia) (05/19/2024), Cellulitis [...] CARE Subjective Pt reports Visitors Present Spouse Shift Supervisor (if applicable) PRESENTATION Oxygen Room Air Telemetry [...] help from Spouse Level of Mobility Mobility [place] History of Falls ADL Performance ADL Performance: [...] Mobility Bed Mobility Exam: Rolling/Turning Level of [place]: Maximum assist (25% patient effort) Physical/Nonphysical Assist: Verbal Cues, Moderate cues Assistive Device: Bed rails, Other (INTERNET MARKETING ASSISTANT) Bed Mobility Exam: Scooting/Bridging Level of [place]: Maximum assist (25% patient's effort) (up in bed; Lester forward at EOB) Physical/Nonphysical Assist: Verbal Cues, Moderate cues Assistive Device: Bed rails Bed Mobility Exam: Supine to Sit Level of [place]: Maximum assist (25% patient's effort) Physical/Nonphysical Assist: Verbal Cues, Moderate cues, Set-up required, Additional assist utilized for safety Assistive Device: Other (INTERNET MARKETING ASSISTANT) Bed Mobility Exam: Sit to Supine Level of [place]: Maximum assist (25% patient's effort) Physical/Nonphysical Assist: [...] POC an d discharge recommendations. STANDARDIZED ASSESSMENTS [facility] 6-Click Daily Activities Help from Other: Don/Doff Regular Lower Body Clothings: A lot Help From Other: Bathing: A lot Help From Other: Toileting: A lot Help From Other: Don/Doff Upper Body Clothings: None Help From Other: Grooming: None Help From Other: Eating Meals: None [facility] 6 Click - Daily Activities Score: [...] Lunch: leftovers/baked oatmeal Dinner: take out/cooking - [employer] roadhouse, cracker barrel Snacks: peanut butter crackers, [...] continue to assess need -Follow-up plan: home beater boss - Anette Kendall -Tentative discharge recommendations: Insulin [...] team via secure chat orpage us at [phone] during 7a-7p, Thursday-Thursday. For after hours please [...] by mouth 3 times a day. HYDROcodone-acetaminophen ([place]) 10-325 MG tablet Take 1 tablet by [...] by mouth daily. Insulin Pen Needle ([place]) 31G X 5 MM [place] [...] 04/28/2025 6:09 AM EDTAssociated Order(s): Consult to [facility] Images from the original note were not included. Consult to [facility] Consult performed by: Sy De [...] 6 hours as needed for pain. Under [place] law, monthly prescriptions (30 days) can be [...] times a day. 09/05/21 Provider, Historical HYDROcodone-acetaminophen ([place]) 10-325 MG tablet Take 1 tablet by mouth every 6 hours as needed. Provider, Historical insulin NPH-insulin regular (NovoLIN 70/30 FlexPen) (70-30) 100 UNIT/ML injection pen Inject 90 Units under the skin 3 times a day before meals. FURTHER REFILLS WILL BE PROVIDED UPON ATTENDANCE OF NEXT OFFICE VISIT 03/29/25 02/22/25 Divine Archer APRN Insulin Pen Needle ([place]) 31G X 5 MM misc USE TO [...] Value Units Date/Time Blood Culture (Aerobic/Anaerobet Set) [[id number]] Collected: 04/27/252215 Order Status: Completed Specimen: Blood, Venous Updated: 04/28/25111 Culture Culture in lab Blood Culture (Aerobic/Anaerobet Set) [[id number]] Collected: 04/27/252215 Order Status: Completed Specimen: Blood, [...] warmth, chills, vomiting. History provided by: Patient tube maker used: No I agree with the above [...] ???kidney infection?? where he was admitted at [facility]. Patient denies any shortness of [...] baseline. Comments: Awake Psychiatric: Behavior: Behavior normal. [place] Coma Scale Score: 15 ED Course & [...] records from his previous hospital visit at [facility] which showed he was being treated for [...] Ordered Status Ordering Provider 04/28/25541 Consult to [facility] Once Specialty: Internal Medicine Provider: [...] of Pseudomonas coverage. I spoke with the airplane dispatch clerk to tryto get records from [facility] to see why he was being treated [...] Description 08/03/2025 2:00 PM EST Office Visit [facility] [address] [place] [address] 5th Floor [address] [place] [address] Mary Vicente MD [address] [place] [address] [address] [place] [address] Scheduled Orders Name Type Priority Associated Diagnoses [...] - 99 mg/dL 05/18/2025 8:11 AM EST [facility] Comment:Accuracy of a glucos e result [...] for testing. Comment 05/18/2025 8:11 AM EST [facility] Knife Finisher ID Char Hinojosa 05/18/2025 8:11 AM EST [facility] Device ID [id number] 05/18/2025 8:11 AM EST [facility] Specimen Type POC Capillary 05/18/2025 8:11 AM EST [facility] Blood Capillary blood specimen / Unknown 05/18/2025 8:09 AM EST 05/18/2025 8:11 AM EST Umar R Jay Jay DO LAB POINT OF CARE TE ST DOCKED DEVICE UNSOLICITED RESULTS Final Result Performing Organization Address City/State/[facility] de Phone Number [facility] [address] [place] [id number] * (ABNORMAL) POCT glucose meter (05/17/2025 7:54 [...] 05/17/2025 7:55 PM EST [facility] Knife Finisher ID Ron Lal 7:55 PM EST [facility] Device ID [id number] 05/17/2025 7:55 PM EST [facility] Specimen Type POC Capillary 05/17/2025 7:55 PM EST [facility] Blood Capillary blood specimen / Unknown 05/17/2025 7:54 PM EST 05/17/2025 7:55 PM EST [employer] R Jay Jay DO LAB POINT OF CARE TE ST DOCKED DEVICE UNSOLICITED RESULTS Final Result Performing Organization Address City/[facility]/ZIP Co de Phone Number [facility] [address] [place] [address] * (ABNORMAL) POCT glucose meter (05/17/2025 5:13 PM EST) [facility] POCT Glucose 186(H) 74 - 99 [...] Comment 05/17/2025 5:14 PM EST [facility]ARE [facility] Knife Finisher ID Char Hinojosa 05/17/2025 5:14 PM EST [facility] Device ID [id number] 05/17/2025 5:14 PM EST [facility] Specimen Type POC Capillary 05/17/2025 5:14 PM EST [facility] Blood Capillary blood specimen / Unknown 05/17/2025 5:13 PM EST 05/17/2025 5:14 PM EST [employer] R Jay Jay DO LAB POINT OF CARE TE ST DOCKED DEVICE UNSOLICITED RESULTS Final Result Performing Organization Address City/[facility]/ZIP Co de Phone Number [facility] [address] [place] [address] * (ABNORMAL) POCT glucose meter (05/17/2025 1:01 PM EST) [facility] POCT Glucose 191(H) 74 - 99 mg/dL 05/31/2025 3:12 PM EST [facility] Comment:Accuracy of a glucos e result [...] Comment 05/31/2025 3:12 PM EST [facility]ARE [facility] Knife Finisher ID Char Hinojosa 05/31/2025 3:12 PM EST [facility] Device ID [id number] 05/31/2025 3:12 PM EST [facility] Specimen Type POC Capillary 05/31/2025 3:12 PM EST [facility] Blood Capillary blood specimen / Unknown 05/17/2025 1:01 PM EST 05/31/2025 3:12 PM EST Wily Goyal DO LAB POINT OF CARE TE ST DOCKED DEVICE UNSOLICITED RESULTS Final Result Performing Organization Address City/State/[facility] Co de Phone Number [facility] [address] [place] [address] * ECHO, ADULT TRANSTHORACIC COMPLETE W/ CONTRAST (05/17/2025 9:51 AM EST) Pathologist [facility] BSA 3.30 m2 HANK ISCV Height 182.9 [...] Ao Diam 37 mm HANK ISCV PA MT(ACCEL) 24.6 mmHg HANK ISCV LV mean PG [...] is no recent study available for direct [id number] comparison. Left Ventricle The left ventricle is [...] is no recent study available for direct [id number] comparison. [facility] CV ECHO PROCEDURES Final Result * (ABNORMAL) POCT glucose meter (05/17/2025 8:52 AM EST) POCT Glucose 225(H) 74 - 99 mg/dL 05/31/2025 3:12 PM EST [facility] Comment:Accuracy of a glucos e result [...] for testing. Comment 05/31/2025 3:12 PM EST [facility] Knife Finisher ID Char Hinojosa 05/31/2025 3:12 PM EST [facility] Device ID [id number] 05/31/2025 3:12 PM EST [facility] Specimen Type POC Capillary 05/31/2025 3:12 PM EST [facility] Blood Capillary blood specimen / Unknown 05/17/2025 8:52 AM EST 05/31/2025 3:12 PM EST [facility] DO LAB POINT OF CARE TE ST DOCKED DEVICE UNSOLICITED RESULTS Final Result [facility] [address] [place] [id number] * (ABNORMAL) POCT glucose meter (05/16/2025 9:28 PM EST) POCT Glucose 199(H) 74 - 99 mg/dL 05/31/2025 3:12 PM EST [facility] Comment:Accuracy of a glucos e result [...] 05/31/2025 3:12 PM EST [facility] Knife Finisher ID Jamal Soriano 3:12 PM EST [facility] Device ID [id number] 05/31/2025 3:12 PM EST [facility] Specimen Type POC Capillary 05/31/2025 3:12 PM EST [facility] Blood Capillary blood specimen / Unknown 05/16/2025 9:28 PM EST 05/31/2025 3:12 PM EST Wily Goyal DO LAB POINT OF CARE TE ST DOCKED DEVICE UNSOLICITED RESULTS Final Result Performing Organization Address City/State/[facility] de Phone Number [facility]ARE [facility] [address] [place] [address] * (ABNORMAL) POCT glucose meter (05/16/2025 5:37 PM EST) [facility] POCT Glucose 283(H) 74 - 99 [...] 05/16/2025 5:39 PM EST [facility] Knife Finisher ID Char Hinojosa 05/16/2025 5:39 PM EST [facility] Device ID [id number] 05/16/2025 5:39 PM EST [facility] Specimen Type POC Capillary 05/16/2025 5:39 PM EST [facility] Blood Capillary blood specimen / Unknown 05/16/2025 5:37 PM EST 05/16/2025 5:39 PM EST Kazar Rodrick Goyal DO LAB POINT OF CARE TE ST DOCKED DEVICE UNSOLICITED RESULTS Final Result Performing Organization Address City/[facility]/ZIP Co de Phone Number [facility] [address] [place] [address] * ECG Adult (05/16/2025 3:33 PM EST) Pathologist [facility] EKG DIAGNOSIS CLASS Abnormal MUSE ECG Ventricular Rate 58 BPM MUSE ECG Atrial Rate 58 BPM MUSE ECG MT Interval 184 ms MUSE ECG QRSD Interval 158 ms MUSE ECG QT Interval 496 ms MUSE ECG QTC Interval 486 ms MUSE ECG P Strawberry 30 degrees MUSE ECG R Strawberry -35 degrees MUSE ECG T Wave Strawberry -5 degrees MUSE ECG Diagnosis Sinus bradycardia MUSE ECG Diagnosis Left axis deviation MUSE ECG Diagnosis Right bundle branch block MUSE ECG Diagnosis Minimal voltage criteria for LVH, may be normal variant ( R in aVL ) MUSE ECG Diagnosis Abnormal ECG MUSE ECG Diagnosis MUSE ECG Diagnosis Confirmed by Lorie Montejo ([id number]) on 05/18/2025 12:15:08 AM MUSE ECG 05/16/2025 3:33 PM EST 05/18/2025 12:15 AM EST Umar R Jay Jay DO ECG ORDERABLES Final Result Performing Organization Address City/[facility] Co de Phone Number MUSE ECG * (ABNORMAL) POCT glucose meter (05/16/2025 12:06 PM EST) [facility] POCT Glucose 161(H) 74 - 99 [...] 05/16/2025 12:07 PM EST [facility] Knife Finisher ID Char Hinojosa 05/16/2025 12:07 PM EST [facility] Device ID [id number] 05/16/2025 12:07 PM EST [facility] Specimen Type POC Capillary 05/16/2025 12:07 PM EST [facility] Blood Capillary blood specimen / Unknown 05/16/2025 12:06 PM EST 05/16/2025 12:07 PM EST us Selin Lee MD LAB POINT OF CARE TE ST DOCKED DEVICE UNSOLICITED RESULTS Final Result Performing Organization Address [facility] de Phone Number [facility]ALTHCARE [facility] [address] [place] [address] * (ABNORMAL) POCT glucose meter (05/16/2025 8:17 [...] Comment 05/16/2025 8:21 AM EST [facility] Knife Finisher ID Char Hinojosa 05/16/2025 8:21 AM EST [facility]ARE [facility] Device ID [id number] 05/16/2025 8:21 AM EST [facility] Specimen Type POC Capillary 05/16/2025 8:21 AM EST [facility] Blood Capillary blood specimen / Unknown 05/16/2025 8:17 AM EST 05/16/2025 8:21 AM EST us Selin Lee MD LAB POINT OF CARE TE ST DOCKED DEVICE UNSOLICITED RESULTS Final Result Performing Organization Address City/[facility] Co de Phone Number [facility]ARE [facility] [address] [place] [address] * (ABNORMAL) CBC and Differential (05/16/2025 4:08 AM EST) WBC Count 7.97 3.70 - 10.30 10*3/uL LAB HEMATOLOGY METHOD 05/16/2025 4:26 AM EST [facility] RBC Count 4.27(L) 4.60 - 6.10 10*6/uL LAB HEMATOLOGY METHOD 05/16/2025 4:26 AM EST [facility] HGB 9.5(L) 13.7 - 17.5 g/dL LAB HEMATOLOGY METHOD 05/16/2025 4:26 AM [facility] HCT 31.6(L) 40.0 - 51.0 % LAB HEMATOLOGY METHOD 05/16/2025 4:26 AM [facility] Platelet Count 264 155 - 369 10*3/uL LAB HEMATOLOGY METHOD 05/16/2025 4:26 AM [facility] MCV 74(L) 79 - 98 fL LAB HEMATOLOGY METHOD 05/16/2025 4:26 AM [facility] MCH 22.2(L) 26.0 - 32.0 pg LAB HEMATOLOGY METHOD 05/16/2025 4:26 AM [facility] MCHC 30.1(L) 30.7 - 35.5 g/dL LAB HEMATOLOGY METHOD 05/16/2025 4:26 AM [facility] RDW 17.9(H) 11.5 - 14.5 % LAB HEMATOLOGY METHOD 05/16/2025 4:26 AM [facility] MPV 9.2 8.8 - 12.5 fL LAB HEMATOLOGY METHOD 05/16/2025 4:26 AM [facility] nRBC 0.0 <=0.0 per 100 WBCs LAB HEMATOLOGY METHOD 05/16/2025 4:26 AM [facility] Differential Type Automated LAB HEMATOLOGY METHOD 05/16/2025 4:26 AM [facility] Neutrophils % 67 % LAB HEMATOLOGY METHOD 05/16/2025 4:26 AM [facility] Lymphocytes % 16 % LAB HEMATOLOGY METHOD 05/16/2025 4:26 AM [facility] Monocytes % 12 % LAB HEMATOLOGY METHOD 05/16/2025 4:26 AM [facility] Eosinophils % 3 % LAB HEMATOLOGY METHOD 05/16/2025 4:26 AM [facility] Basophils % 1 % LAB HEMATOLOGY METHOD 05/16/2025 4:26 AM [facility] Immature Granulocytes % 1 % LAB HEMATOLOGY METHOD 05/16/2025 4:26 AM [facility] Neutrophils Absolute 5.39 1.60 - 6.10 10*3/uL LAB HEMATOLOGY METHOD 05/16/2025 4:26 AM [facility] Lymphocytes Absolute 1.30 1.20 [...] ORDERABLES Final Re sult Performing Organization Address City/[facility]/ZIP Co de Phone Number [facility] [address] [place] [address] * (ABNORMAL) Magnesium, Plasma (05/16/2025 4:08 AM EST) Magnesium, Plasma 1.8(L) 1.9 - 2.4 mg/dL 05/16/2025 4:48 AM EST [facility] Blood Venous blood specimen / Unknown Venipuncture / Unknown 05/16/2025 4:08 AM EST 05/16/2025 4:16 AM EST Selin Lee MD LAB BLOOD ORDERABLES Final Re sult [facility] [address] [place] [address] * (ABNORMAL) Basic Metabolic Panel, Plasma (05/16/2025 [...] Re sult [facility] [address] [place] [address] * Phosphorus, Plasma (05/16/2025 4:08 AM EST) Phosphorus, Plasma 3.7 2.5 - 4.5 mg/dL 05/16/2025 4:48 AM EST [facility] Blood Venous blood specimen / Unknown Venipuncture / Unknown 05/16/2025 4:08 AM EST 05/16/2025 4:16 AM EST us Selin Lee MD LAB BLOOD ORDERABLES Final Re sult Performing Organization Address City/[facility]/ZIP Co de Phone Number [facility] [address] [place] [address] * (ABNORMAL) POCT glucose meter (05/15/2025 8:00 [...] Comment 05/15/2025 8:02 PM EST [facility] Knife Finisher ID [email or web address] 8:02 PM EST [facility] Device ID [id number] 05/15/2025 8:02 PM EST [facility] Specimen Type POC Capillary 05/15/2025 8:02 PM EST [facility] Blood Capillary blood specimen / Unknown 05/15/2025 8:00 PM EST 05/15/2025 8:02 PM EST us Selin Lee MD LAB POINT OF CARE TE ST DOCKED DEVICE UNSOLICITED RESULTS Final Result [facility] [address] [place] [address] * (ABNORMAL) POCT glucose meter (05/15/2025 4:52 [...] 05/15/2025 4:53 PM EST [facility] Knife Finisher ID Char Hinojosa 05/15/2025 4:53 PM EST [facility] Device ID [id number] 05/15/2025 4:53 PM EST [facility] Specimen Type POC Capillary 05/15/2025 4:53 PM EST [facility] Blood Capillary blood specimen / Unknown 05/15/2025 4:52 PM EST 05/15/2025 4:53 PM EST us Selin Lee MD LAB POINT OF CARE TE ST DOCKED DEVICE UNSOLICITED RESULTS Final Result Performing Organization Address City/State/[facility] Co de Phone Number [facility] [address] [place] [address] * (ABNORMAL) POCT glucose meter (05/15/2025 12:46 PM EST) [facility] POCT Glucose 233(H) 74 - 99 [...] 05/15/2025 12:48 PM EST [facility] Knife Finisher ID Santy Garcia 05/15/2025 12:48 PM EST [facility] Device ID [id number] 05/15/2025 12:48 PM EST [facility] Specimen Type POC Capillary 05/15/2025 12:48 PM EST [facility] Blood Capillary blood specimen / Unknown 05/15/2025 12:46 PM EST 05/15/2025 12:48 PM EST us Selin Lee MD LAB POINT OF CARE TE ST DOCKED DEVICE UNSOLICITED RESULTS Final Result Performing Organization Address [facility] Co de Phone Number [facility] [address] [place] [address] * (ABNORMAL) POCT glucose meter (05/15/2025 11:31 AM EST) [facility] POCT Glucose 235(H) 74 - 99 [...] 05/15/2025 11:33 AM EST [facility] Knife Finisher ID Char Hinojosa 05/15/2025 11:33 AM EST [facility] Device ID [id number] 05/15/2025 11:33 AM EST [facility] Specimen Type POC Capillary 05/15/2025 11:33 AM EST [facility] Blood Capillary blood specimen / Unknown 05/15/2025 11:31 AM EST 05/15/2025 11:33 AM EST Selin Lee MD LAB POINT OF CARE TE ST DOCKED DEVICE UNSOLICITED RESULTS Final Result Performing Organization Address [facility] de Phone Number [facility] [address] [place] [address] * (ABNORMAL) POCT glucose meter (05/15/2025 8:12 AM EST) [facility] POCT Glucose 175(H) 74 - 99 [...] 05/15/2025 8:14 AM EST [facility] Knife Finisher ID Char Hinojosa 05/15/2025 8:14 AM EST [facility] Device ID [id number] 05/15/2025 8:14 AM EST [facility] Specimen Type POC Capillary 05/15/2025 8:14 AM EST [facility] Blood Capillary blood specimen / Unknown 05/15/2025 8:12 AM EST 05/15/2025 8:14 AM EST us Selin Lee MD LAB POINT OF CARE TE ST DOCKED DEVICE UNSOLICITED RESULTS Final Result [facility] [address] [place] [address] * (ABNORMAL) CBC and Differential (05/15/2025 2:24 [...] 2:41 AM EST [facility] MPV 9.4 8.8 - 12.5 fL LAB HEMATOLOGY METHOD 05/15/2025 2:41 AM [facility] nRBC 0.0 <=0.0 per 100 WBCs LAB HEMATOLOGY METHOD 05/15/2025 2:41 AM EST [facility] Differential Type Automated LAB HEMATOLOGY METHOD 05/15/2025 2:41 AM [facility] Neutrophils % 71 % LAB HEMATOLOGY METHOD 05/15/2025 2:41 AM EST [facility] Lymphocytes % 14 % LAB HEMATOLOGY METHOD 05/15/2025 2:41 AM EST [facility] Monocytes % 11 % LAB HEMATOLOGY METHOD 05/15/2025 2:41 AM [facility] Eosinophils % 3 % LAB HEMATOLOGY METHOD 05/15/2025 2:41 AM EST [facility] Basophils % 1 % LAB HEMATOLOGY METHOD 05/15/2025 2:41 AM [facility] Immature Granulocytes % 0 % LAB HEMATOLOGY METHOD 05/15/2025 2:41 AM EST [facility] Neutrophils Absolute 6.25(H) 1.60 - 6.10 10*3/uL LAB HEMATOLOGY METHOD 05/15/2025 2:41 AM EST [facility] Lymphocytes Absolute 1.27 1.20 - 3.90 10*3/uL LAB HEMATOLOGY METHOD 05/15/2025 2:41 AM [facility] Monocytes Absolute 0.95(H) 0.30 - 0.90 10*3/uL LAB HEMATOLOGY METHOD 05/15/2025 2:41 AM [facility] Eosinophils Absolute 0.27 0.00 - 0.50 10*3/uL LAB HEMATOLOGY METHOD 05/15/2025 2:41 AM EST [facility] Basophils Absolute 0.04 0.00 - 0.10 10*3/uL LAB HEMATOLOGY METHOD 05/15/2025 2:41 AM [facility] Immature Granulocytes Absolute 0.03 0.00 - 0.06 10*3/uL LAB HEMATOLOGY METHOD 05/15/2025 2:41 AM [facility] Blood Venous blood specimen / Unknown Venipuncture / Unknown 05/15/2025 2:24 AM EST 05/15/2025 2:33 AM EST [facility] - 05/15/2025 2:41 AM EST Therapeutic decision making should be based on absolute values, rather than percentages. us Selin Lee MD LAB BLOOD ORDERABLES Final Re sult Performing Organization Address City/[facility]/ZIP Co de Phone Number [facility] [address] [place] [address] * (ABNORMAL) Magnesium, Plasma (05/15/2025 2:24 AM EST) Magnesium, Plasma 1.8(L) 1.9 - 2.4 mg/dL 05/15/2025 3:03 AM EST [facility] Blood Venous blood specimen / Unknown Venipuncture / Unknown 05/15/2025 2:24 AM EST 05/15/2025 2:32 AM EST us Selin Lee MD LAB BLOOD ORDERABLES Final Re sult Performing Organization Address [facility] Co de Phone Number [facility] [address] [place] [address] * (ABNORMAL) Basic Metabolic Panel, Plasma (05/15/2025 [...] ORDERABLES Final Re sult Performing Organization Address [facility] Co de Phone Number [facility] [address] [place] [address] * Phosphorus, Plasma (05/15/2025 2:24 AM EST) Phosphorus, Plasma 3.7 2.5 - 4.5 mg/dL 05/15/2025 3:03 AM EST [facility] Blood Venous blood specimen / Unknown Venipuncture / Unknown 05/15/2025 2:24 AM EST 05/15/2025 2:32 AM EST us Selin Lee MD LAB BLOOD ORDERABLES Final Re sult Performing Organization Address City/[facility] Co de Phone Number [facility] [address] [place] [address] * (ABNORMAL) POCT glucose meter (05/14/2025 8:09 PM EST) POCT Glucose 194(H) 74 - 99 mg/dL 05/14/2025 8:11 PM EST [facility] Comment:Accuracy of a glucos e [...] 05/14/2025 8:11 PM EST [facility] Knife Finisher ID Stella Coleman 05/14/20 8:11 PM EST [facility] Device ID [id number] 05/14/2025 8:11 PM EST [facility] Specimen Type POC Capillary 05/14/2025 8:11 PM EST [facility] Blood Capillary blood specimen / Unknown 05/14/2025 8:09 PM EST 05/14/2025 8:11 PM EST us Selin Lee MD LAB POINT OF CARE TE ST DOCKED DEVICE UNSOLICITED RESULTS Final Result Performing Organization Address City/[facility] Co de Phone Number [facility] [address] [place] [address] * (ABNORMAL) POCT glucose meter (05/14/2025 5:10 [...] 05/14/2025 5:13 PM EST [facility] Knife Finisher ID Dunia Montgomery 05/14/2025 5:13 PM EST [facility] Device ID [id number] 05/14/2025 5:13 PM EST [facility] Specimen Type POC Capillary 05/14/2025 5:13 PM EST [facility] Blood Capillary blood specimen / Unknown 05/14/2025 5:10 PM EST 05/14/2025 5:13 PM EST us Selin Lee MD LAB POINT OF CARE TE ST DOCKED DEVICE UNSOLICITED RESULTS Final Result [facility] [address] [place] [address] * (ABNORMAL) POCT glucose meter (05/14/2025 12:15 PM EST) [facility] POCT Glucose 260(H) 74 - 99 [...] 05/14/2025 4:51 PM EST [facility] Knife Finisher ID Dunia Montgomery 05/14/2025 4:51 PM EST [facility] Device ID [id number] 05/14/2025 4:51 PM EST [facility] Specimen Type POC Capillary 05/14/2025 4:51 PM EST [facility] Blood Capillary blood specimen / Unknown 05/14/2025 12:15 PM EST 05/14/2025 4:51 PM EST Selin Lee MD LAB POINT OF CARE TE ST DOCKED DEVICE UNSOLICITED RESULTS Final Result Performing Organization Address City/State/[facility] Co de Phone Number [facility] [address] [place] [address] * (ABNORMAL) POCT glucose meter (05/14/2025 8:30 AM EST) [facility] POCT Glucose 321(H) 74 - 99 [...] 05/14/2025 8:33 AM EST [facility] Knife Finisher ID Dunia Montgomery 05/14/2025 8:33 AM EST [facility] Device ID [id number] 05/14/2025 8:33 AM EST [facility] Specimen Type POC Capillary 05/14/2025 8:33 AM EST [facility] Blood Capillary blood specimen / Unknown 05/14/2025 8:30 AM EST 05/14/2025 8:33 AM EST us Selin Lee MD LAB POINT OF CARE TE ST DOCKED DEVICE UNSOLICITED RESULTS Final Result Performing Organization Address [facility] de Phone Number [facility] [address] [place] [address] * (ABNORMAL) POCT glucose meter (05/14/2025 4:49 AM EST) [facility] POCT Glucose 306(H) 74 - 99 [...] Comment 05/31/2025 3:12 PM EST [facility] Knife Finisher ID Asiya Nix 025 3:12 PM EST [facility] Device ID [id number] 05/31/2025 3:12 PM EST [facility] Specimen Type POC Capillary 05/31/2025 3:12 PM EST [facility] Blood Capillary blood specimen / Unknown 05/14/2025 4:49 AM EST 05/31/2025 3:12 PM EST us Wily Goyal DO LAB POINT OF CARE TE ST DOCKED DEVICE UNSOLICITED RESULTS Final Result Performing Organization Address City/[facility] Co de Phone Number [facility] [address] [place] [address] * (ABNORMAL) CBC and Differential (05/14/2025 1:45 AM EDT) Pathologist [facility] WBC Count 7.88 3.70 - 10.30 10*3/uL [...] 2:47 AM EST [facility] MCH 22.8(L) 26.0 - 32.0 pg LAB HEMATOLOGY METHOD 05/14/2025 2:47 AM EST [facility] MCHC 30.6(L) 30.7 - 35.5 g/dL LAB HEMATOLOGY METHOD 05/14/2025 2:47 AM [facility] RDW 17.9(H) 11.5 - 14.5 % LAB HEMATOLOGY METHOD 05/14/2025 2:47 AM EST [facility] MPV 9.6 8.8 - 12.5 fL LAB HEMATOLOGY METHOD 05/14/2025 2:47 AM [facility] nRBC 0.0 <=0.0 per 100 WBCs LAB HEMATOLOGY METHOD 05/14/2025 2:47 AM [facility] Differential Type Automated LAB HEMATOLOGY METHOD 05/14/2025 2:47 AM [facility] Neutrophils % 66 % LAB HEMATOLOGY METHOD 05/14/2025 2:47 AM EST [facility] Lymphocytes % 18 % LAB HEMATOLOGY METHOD 05/14/2025 2:47 AM EST [facility] Monocytes % 11 % LAB HEMATOLOGY METHOD 05/14/2025 2:47 AM [facility] Eosinophils % 4 % [...] ORDERABLES Final Re sult Performing Organization Address City/[facility]/ZIP Co de Phone Number [facility] [address] [place] [address] * (ABNORMAL) Magnesium, Plasma (05/14/2025 1:45 AM EDT) Magnesium, Plasma 1.7(L) 1.9 - 2.4 mg/dL 05/14/2025 2:58 AM EST [facility] Blood Venous blood specimen / Unknown Venipuncture / Unknown 05/14/2025 1:45 AM EDT 05/14/2025 2:25 AM EST us Selin Lee MD LAB BLOOD ORDERABLES Final Re sult Performing Organization Address City/[facility]/ZIP Co de Phone Number [facility] [address] [place] [address] * (ABNORMAL) Basic Metabolic Panel, Plasma (05/14/2025 [...] Re sult [facility] [address] [place] [address] * Phosphorus, Plasma (05/14/2025 1:45 AM EDT) Phosphorus, Plasma 3.3 2.5 - 4.5 mg/dL 05/14/2025 2:58 AM EST [facility] Blood Venous blood specimen / Unknown Venipuncture / Unknown 05/14/2025 1:45 AM EDT 05/14/2025 2:25 AM EST Selin Lee MD LAB BLOOD ORDERABLES Final Re sult Performing Organization Address City/[facility]/ZIP Co de Phone Number [facility] [address] [place] [address] * (ABNORMAL) POCT glucose meter (05/13/2025 7:59 PM EDT) [facility] POCT Glucose 257(H) 74 - 99 [...] Comment 05/31/2025 3:12 PM EST [facility] Knife Finisher ID Stella Coleman 05/31/20 3:12 PM EST [facility] Device ID [id number] 05/31/2025 3:12 PM EST [facility] Specimen Type POC Capillary 05/31/2025 3:12 PM EST [facility] Blood Capillary blood specimen / Unknown 05/13/2025 7:59 PM EDT 05/31/2025 3:12 PM EST us Wily Goyal DO LAB POINT OF CARE TE ST DOCKED DEVICE UNSOLICITED RESULTS Final Result Performing Organization Address City/[facility] Co de Phone Number [facility] [address] [place] [address] * (ABNORMAL) POCT glucose meter (05/13/2025 4:58 PM EDT) [facility] POCT Glucose 217(H) 74 - 99 [...] 05/13/2025 5:00 PM EDT [facility] Knife Finisher ID Priyanka Negrete 05/13/20 5:00 PM EDT [facility] Device ID [id number] 05/13/2025 5:00 PM EDT [facility] Specimen Type POC Capillary 05/13/2025 5:00 PM EDT [facility] Blood Capillary blood specimen / Unknown 05/13/2025 4:58 PM EDT 05/13/2025 5:00 PM EDT Selin Lee MD LAB POINT OF CARE TE ST DOCKED DEVICE UNSOLICITED RESULTS Final Result Performing Organization Address City/State/[facility] Co de Phone Number [facility] [address] [place] [address] * (ABNORMAL) POCT glucose meter (05/13/2025 11:37 AM EDT) [facility] POCT Glucose 255(H) 74 - 99 [...] 05/13/2025 11:41 AM EDT [facility] Knife Finisher ID Priyanka Negrete 05/13/20 11:41 AM EDT [facility] Device ID [id number] 05/13/2025 11:41 AM EDT [facility] Specimen Type POC Capillary 05/13/2025 11:41 AM EDT [facility] Blood Capillary blood specimen / Unknown 05/13/2025 11:37 AM EDT 05/13/2025 11:41 AM EDT Selin Lee MD LAB POINT OF CARE TE ST DOCKED DEVICE UNSOLICITED RESULTS Final Result Performing Organization Address City/[facility] Co de Phone Number [facility] [address] [place] [address] * (ABNORMAL) POCT glucose meter (05/13/2025 7:42 AM EDT) [facility] POCT Glucose 233(H) 74 - 99 [...] Comment 05/13/2025 7:45 AM EDT [facility] Knife Finisher ID Priyanka Negrete 05/13/20 7:45 AM EDT [facility] Device ID [id number] 05/13/2025 7:45 AM EDT [facility] Specimen Type POC Capillary 05/13/2025 7:45 AM EDT [facility] Blood Capillary blood specimen / Unknown 05/13/2025 7:42 AM EDT 05/13/2025 7:45 AM EDT us Selin Lee MD LAB POINT OF CARE TE ST DOCKED DEVICE UNSOLICITED RESULTS Final Result Performing Organization Address City/[facility]/ZIP Co de Phone Number [facility] [address] [place] [address] * (ABNORMAL) CBC and Differential (05/13/2025 3:54 AM EDT) [facility] WBC Count 7.92 3.70 - 10.30 [...] ORDERABLES Final Re sult Performing Organization Address [facility] Co de Phone Number [facility] [address] [place] [address] * Magnesium, Plasma (05/13/2025 3:54 AM EDT) Magnesium, Plasma 1.9 1.9 - 2.4 mg/dL 05/13/2025 4:28 AM EDT [facility] Blood Venous blood specimen / Unknown Venipuncture / Unknown 05/13/2025 3:54 AM EDT 05/13/2025 4:01 AM EDT us Selin Lee MD LAB BLOOD ORDERABLES Final Re sult Performing Organization Address City/[facility]/ZIP Co de Phone Number [facility] [address] [place] [address] * (ABNORMAL) Basic Metabolic Panel, Plasma (05/13/2025 [...] Re sult [facility] [address] [place] [address] * Phosphorus, Plasma (05/13/2025 3:54 AM EDT) [facility] Phosphorus, Plasma 3.3 2.5 - 4.5 mg/dL 05/13/2025 4:28 AM EDT [facility] Blood Venous blood specimen / Unknown Venipuncture / Unknown 05/13/2025 3:54 AM EDT 05/13/2025 4:01 AM EDT us Selin Lee MD LAB BLOOD ORDERABLES Final Re sult [facility] [address] [place] [address] * (ABNORMAL) POCT glucose meter (05/12/2025 7:40 PM EDT) [facility] POCT Glucose 248(H) 74 - 99 [...] Comment 05/12/2025 7:42 PM EDT [facility] Knife Finisher ID Stella Coleman 05/12/20 7:42 PM EDT [facility]ARE LAB Device ID [id number] 05/12/2025 7:42 PM EDT [facility] Specimen Type POC Capillary 05/12/2025 7:42 PM EDT [facility] Blood Capillary blood specimen / Unknown 05/12/2025 7:40 PM EDT 05/12/2025 7:42 PM EDT us Selin Lee MD LAB POINT OF CARE TE ST DOCKED DEVICE UNSOLICITED RESULTS Final Result [facility] [address] [place] [address] * (ABNORMAL) POCT glucose meter (05/12/2025 4:36 PM EDT) [facility] POCT Glucose 235(H) 74 - 99 [...] Comment 05/12/2025 4:38 PM EDT [facility] Knife Finisher ID Char Hinojosa 05/12/2025 4:38 PM EDT [facility]ARE LAB Device ID [id number] 05/12/2025 4:38 PM EDT [facility]ALTH[facility]ARE [facility] Specimen Type POC Capillary 05/12/2025 4:38 PM EDT [facility] Blood Capillary blood specimen / Unknown 05/12/2025 4:36 PM EDT 05/12/2025 4:38 PM EDT Selin Lee MD LAB POINT OF CARE TE ST DOCKED DEVICE UNSOLICITED RESULTS Final Result [facility] [address] [place] [address] * (ABNORMAL) POCT glucose meter (05/12/2025 11:30 AM EDT) [facility] POCT Glucose 315(H) 74 - 99 [...] Comment 05/12/2025 11:32 AM EDT [facility] Knife Finisher ID Char Hinojosa 05/12/2025 11:32 AM EDT [facility] LAB Device ID [id number] 05/12/2025 11:32 AM EDT [facility]ARE [facility] Specimen Type POC Capillary 05/12/2025 11:32 AM EDT [facility] Blood Capillary blood specimen / Unknown 05/12/2025 11:30 AM EDT 05/12/2025 11:32 AM EDT Selin Lee MD LAB POINT OF CARE TE ST DOCKED DEVICE UNSOLICITED RESULTS Final Result Performing Organization Address [facility] Co de Phone Number [facility] [address] [place] [address] * (ABNORMAL) POCT glucose meter (05/12/2025 8:08 AM EDT) [facility] POCT Glucose 274(H) 74 - 99 [...] Comment 05/12/2025 8:10 AM EDT [facility] Knife Finisher ID Char Hinojosa 05/12/2025 8:10 AM EDT [facility]ALTH[facility]ARE LAB Device ID [id number] 05/12/2025 8:10 AM EDT [facility] Specimen Type POC Capillary 05/12/2025 8:10 AM EDT [facility] Blood Capillary blood specimen / Unknown 05/12/2025 8:08 AM EDT 05/12/2025 8:10 AM EDT Selin Lee MD LAB POINT OF CARE TE ST DOCKED DEVICE UNSOLICITED RESULTS Final Result Performing Organization Address City/[facility] Co de Phone Number [facility] [address] [place] [address] * (ABNORMAL) CBC and Differential (05/12/2025 3:56 AM EDT) [facility] WBC Count 7.24 3.70 - 10.30 [...] sult [facility] [address] [place] [address] * (ABNORMAL) Magnesium, Plasma (05/12/2025 3:56 AM EDT) Magnesium, Plasma 1.7(L) 1.9 - 2.4 mg/dL 05/12/2025 4:36 AM EDT [facility] Blood Venous blood specimen / Unknown Venipuncture / Unknown 05/12/2025 3:56 AM EDT 05/12/2025 4:03 AM EDT us Selin Lee MD LAB BLOOD ORDERABLES Final Re sult [facility] [address] [place] [address] * (ABNORMAL) Basic Metabolic Panel, Plasma (05/12/2025 [...] Re sult [facility] [address] [place] [address] * Phosphorus, Plasma (05/12/2025 3:56 AM EDT) [facility] Phosphorus, Plasma 2.8 2.5 - 4.5 mg/dL 05/12/2025 4:36 AM EDT [facility] Blood Venous blood specimen / Unknown Venipuncture / Unknown 05/12/2025 3:56 AM EDT 05/12/2025 4:03 AM EDT us Selin Lee MD LAB BLOOD ORDERABLES Final Re sult Performing Organization Address City/[facility] Co de Phone Number [facility] [address] [place] [address] * (ABNORMAL) POCT glucose meter (05/12/2025 3:11 AM EDT) [facility] POCT Glucose 348(H) 74 - 99 [...] 05/12/2025 3:13 AM EDT [facility] Knife Finisher ID Mathew Edshuterikia 05/12/2025 3:13 AM EDT [facility] Device ID [id number] 05/12/2025 3:13 AM EDT [facility] Specimen Type POC Capillary 05/12/2025 3:13 AM EDT [facility] Blood Capillary blood specimen / Unknown 05/12/2025 3:11 AM EDT 05/12/2025 3:13 AM EDT us Selin Lee MD LAB POINT OF CARE TE ST DOCKED DEVICE UNSOLICITED RESULTS Final Result Performing Organization Address City/[facility]/ZIP Co de Phone Number [facility] [address] [place] [address] * (ABNORMAL) POCT glucose meter (05/11/2025 7:57 PM EDT) [facility] POCT Glucose 272(H) 74 - 99 [...] Comment 05/11/2025 8:02 PM EDT [facility] Knife Finisher ID Joel Carmona 05/11/2025 8:02 PM EDT [facility]ARE LAB Device ID [id number] 05/11/2025 8:02 PM EDT [facility] Specimen Type POC Capillary 05/11/2025 8:02 PM EDT [facility] Blood Capillary blood specimen / Unknown 05/11/2025 7:57 PM EDT 05/11/2025 8:02 PM EDT Selin Lee MD LAB POINT OF CARE TE ST DOCKED DEVICE UNSOLICITED RESULTS Final Result Performing Organization Address City/State/[facility] Co de Phone Number [facility] [address] [place] [id number] * (ABNORMAL) POCT glucose meter (05/11/2025 5:05 PM EDT) [facility] POCT Glucose 258(H) 74 - 99 [...] Comment 05/11/2025 5:07 PM EDT [facility] Knife Finisher ID Char Hinojosa 05/11/2025 5:07 PM EDT [facility]ARE LAB Device ID [id number] 05/11/2025 5:07 PM EDT [facility] Specimen Type POC Capillary 05/11/2025 5:07 PM EDT [facility] Blood Capillary blood specimen / Unknown 05/11/2025 5:05 PM EDT 05/11/2025 5:07 PM EDT us Selin Lee MD LAB POINT OF CARE TE ST DOCKED DEVICE UNSOLICITED RESULTS Final Result Performing Organization Address City/[facility]/ZIP Co de Phone Number [facility] [address] [place] [address] * (ABNORMAL) POCT glucose meter (05/11/2025 12:13 [...] Comment 05/11/2025 12:15 PM EDT [facility] Knife Finisher ID Char Hinojosa 05/11/2025 12:15 PM EDT [facility] Device ID [id number] 05/11/2025 12:15 PM EDT [facility] Specimen Type POC Capillary 05/11/2025 12:15 PM EDT [facility] Blood Capillary blood specimen / Unknown 05/11/2025 12:13 PM EDT 05/11/2025 12:15 PM EDT us Selin Lee MD LAB POINT OF CARE TE ST DOCKED DEVICE UNSOLICITED RESULTS Final Result [facility] [address] [place] [address] * (ABNORMAL) POCT glucose meter (05/11/2025 7:57 [...] Comment 05/11/2025 7:59 AM EDT [facility] Knife Finisher ID Char Hinojosa 05/11/2025 7:59 AM EDT [facility] LAB Device ID [id number] 05/11/2025 7:59 AM EDT [facility] LAB Specimen Type POC Capillary 05/11/2025 7:59 AM EDT [facility] Blood Capillary blood specimen / Unknown 05/11/2025 7:57 AM EDT 05/11/2025 7:59 AM EDT us Selin Lee MD LAB POINT OF CARE TE ST DOCKED DEVICE UNSOLICITED RESULTS Final Result Performing Organization Address City/State/[facility] Co de Phone Number [facility] [address] [place] [address] * ECG Adult (05/11/2025 6:11 AM EDT) EKG DIAGNOSIS CLASS Abnormal MUSE ECG Ventricular Rate 59 BPM MUSE ECG Atrial Rate 59 BPM MUSE ECG MT Interval 176 ms MUSE ECG QRSD Interval 160 ms MUSE ECG QT Interval 520 ms MUSE ECG QTC Interval 514 ms MUSE ECG P Strawberry 21 degrees MUSE ECG R Strawberry -32 degrees MUSE ECG T Wave Strawberry -9 degrees MUSE ECG Diagnosis Sinus bradycardia [...] MUSE ECG Diagnosis Confirmed by Tone Lainez ([id number]) on 05/12/2025 11:35:23 AM MUSE ECG 05/11/2025 6:11 AM EDT 05/12/2025 11:35 AM EDT us Selin Lee MD ECG ORDERABLES Final Result MUSE ECG * (ABNORMAL) POCT glucose meter (05/11/2025 3:42 AM EDT) [facility] POCT Glucose 336(H) 74 - 99 [...] 05/11/2025 3:45 AM EDT [facility] Knife Finisher ID Kaylin Barron 05/11/2025 3:45 AM EDT [facility]ARE LAB Device ID [id number] 05/11/2025 3:45 AM EDT [facility] Specimen Type POC Capillary 05/11/2025 3:45 AM EDT [facility] Blood Capillary blood specimen / Unknown 05/11/2025 3:42 AM EDT 05/11/2025 3:45 AM EDT Selin Lee MD LAB POINT OF CARE TE ST DOCKED DEVICE UNSOLICITED RESULTS Final Result Performing Organization Address City/[facility]/ZIP Co de Phone Number [facility] [address] [place] [address] * (ABNORMAL) CBC and Differential (05/11/2025 3:24 AM EDT) [facility] WBC Count 6.72 3.70 - 10.30 [...] ORDERABLES Final Re sult Performing Organization Address City/[facility]/ZIP Co de Phone Number [facility] [address] [place] [address] * (ABNORMAL) Magnesium, Plasma (05/11/2025 3:24 AM EDT) Magnesium, Plasma 1.8(L) 1.9 - 2.4 mg/dL 05/11/2025 3:58 AM EDT [facility] Blood Venous blood specimen / Unknown Venipuncture / Unknown 05/11/2025 3:24 AM EDT 05/11/2025 3:30 AM EDT us Selin Lee MD LAB BLOOD ORDERABLES Final Re sult [facility] [address] [place] [address] * (ABNORMAL) Basic Metabolic Panel, Plasma (05/11/2025 [...] Re sult [facility] [address] [place] [address] * Phosphorus, Plasma (05/11/2025 3:24 AM EDT) Phosphorus, Plasma 3.1 2.5 - 4.5 mg/dL 05/11/2025 3:58 AM EDT [facility] Blood Venous blood specimen / Unknown Venipuncture / Unknown 05/11/2025 3:24 AM EDT 05/11/2025 3:30 AM EDT Selin Lee MD LAB BLOOD ORDERABLES Final Re sult Performing Organization Address City/[facility]/ZIP Co de Phone Number [facility] [address] [place] [address] * (ABNORMAL) POCT glucose meter (05/10/2025 7:07 [...] Comment 05/10/2025 7:10 PM EDT [facility] Knife Finisher ID Char Hinojosa 05/10/2025 7:10 PM EDT HEALTHCARE LAB Device ID [id number] 05/10/2025 7:10 PM EDT [facility] Specimen Type POC Capillary 05/10/2025 7:10 PM EDT [facility] Blood Capillary blood specimen / Unknown 05/10/2025 7:07 PM EDT 05/10/2025 7:10 PM EDT Selin Lee MD LAB POINT OF CARE TE ST DOCKED DEVICE UNSOLICITED RESULTS Final Result Performing Organization Address City/[facility]/ZIP Co de Phone Number [facility] [address] [place] [address] * (ABNORMAL) POCT glucose meter (05/10/2025 4:55 [...] Comment 05/10/2025 4:57 PM EDT [facility] Knife Finisher ID Char Hinojosa 05/10/2025 4:57 PM EDT HEALTHCARE LAB Device ID [id number] 05/10/2025 4:57 PM EDT [facility] Specimen Type POC Capillary 05/10/2025 4:57 PM EDT [facility] Blood Capillary blood specimen / Unknown 05/10/2025 4:55 PM EDT 05/10/2025 4:57 PM EDT us Selin Lee MD LAB POINT OF CARE TE ST DOCKED DEVICE UNSOLICITED RESULTS Final Result Performing Organization Address City/State/[facility] Co de Phone Number [facility] [address] [place] [address] * (ABNORMAL) POCT glucose meter (05/10/2025 11:41 [...] 05/10/2025 11:43 AM EDT [facility] Knife Finisher ID Char Hinojosa 05/10/2025 11:43 AM EDT HEALTH[facility]ARE LAB Device ID [id number] 05/10/2025 11:43 AM EDT [facility] Specimen Type POC Capillary 05/10/2025 11:43 AM EDT [facility] Blood Capillary blood specimen / Unknown 05/10/2025 11:41 AM EDT 05/10/2025 11:43 AM EDT us Selin Lee MD LAB POINT OF CARE TE ST DOCKED DEVICE UNSOLICITED RESULTS Final Result [facility] [address] [place] [address] * ECG 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/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 [facility] EKG DIAGNOSIS CLASS Abnormal MUSE ECG Ventricular Rate 65 BPM MUSE ECG Atrial Rate 65 BPM MUSE ECG MT Interval 198 ms MUSE ECG QRSD Interval 154 ms MUSE ECG QT Interval 508 ms MUSE ECG QTC Interval 528 ms MUSE ECG P Strawberry 66 degrees MUSE ECG R Strawberry -39 degrees MUSE ECG T Wave Strawberry -16 degrees MUSE ECG Diagnosis Normal sinus rhythm with sinus arrhythmia MUSE ECG Diagnosis Left axis deviation MUSE ECG Diagnosis Right bundle branch block MUSE ECG Diagnosis Minimal voltage criteria for LVH, may be normal variant ( R in aVL ) MUSE ECG Diagnosis Abnormal ECG MUSE ECG Diagnosis MUSE ECG Diagnosis Confirmed by Manas Mccauley ([id number]) on 05/10/2025 3:20:48 PM MUSE ECG 05/10/2025 11:2 0 AM EDT 05/10/2025 3:20 PM EDT Selin Lee MD ECG ORDERABLES Final Result Performing Organization Address City/State/[facility] Co de Phone Number MUSE ECG * (ABNORMAL) POCT glucose meter (05/10/2025 7:30 AM EDT) [facility] POCT Glucose 332(H) 74 - 99 [...] 05/10/2025 7:33 AM EDT [facility] Knife Finisher ID Char Hinojosa 05/10/2025 7:33 AM EDT [facility] Device ID [id number] 05/10/2025 7:33 AM EDT [facility] Specimen Type POC Capillary 05/10/2025 7:33 AM EDT [facility] Blood Capillary blood specimen / Unknown 05/10/2025 7:30 AM EDT 05/10/2025 7:33 AM EDT us Selin eLe MD LAB POINT OF CARE TE ST DOCKED DEVICE UNSOLICITED RESULTS Final Result Performing Organization Address City/[facility]/ZIP Co de Phone Number [facility] [address] [place] [address] * ECG 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/2025 6:14 AM EDT) EKG DIAGNOSIS CLASS Abnormal MUSE ECG Ventricular Rate 56 BPM MUSE ECG Atrial Rate 56 BPM MUSE ECG MT Interval 196 ms MUSE ECG QRSD Interval 164 ms MUSE ECG QT Interval 508 ms MUSE ECG QTC Interval 490 ms MUSE ECG P Strawberry 74 degrees MUSE ECG R Strawberry -33 degrees MUSE ECG T Wave Strawberry -10 degrees MUSE ECG Diagnosis Sinus bradycardia [...] ECG ORDERABLES Final Result Performing Organization Address City/[facility] Co de Phone Number MUSE [...] Comment 05/10/2025 4:02 AM EDT [facility] Knife Finisher ID Maribell Saeed 4:02 AM EDT HEALTHCARE LAB Device ID [id number] 05/10/2025 4:02 AM EDT [facility] LAB Specimen Type POC Capillary 05/10/2025 4:02 AM EDT [facility] Blood Capillary blood specimen / Unknown 05/10/2025 4:00 AM EDT 05/10/2025 4:02 AM EDT Diane Guzman MD LAB POINT OF CARE T EST DOCKED DEVICE UNSOLICITED RESULTS Final Result Performing Organization Address City/[facility]/ZIP Co de Phone Number [facility] [address] [place] [address] * (ABNORMAL) POCT glucose meter (05/09/2025 8:37 [...] Comment 05/09/2025 8:39 PM EDT [facility] Knife Finisher ID Maribell Saeed 8:39 PM EDT HEALTH[facility]ARE LAB Device ID [id number] 05/09/2025 8:39 PM EDT [facility]ALTH[facility]ARE LAB Specimen Type POC Capillary 05/09/2025 8:39 PM EDT [facility] Blood Capillary blood specimen / Unknown 05/09/2025 8:37 PM EDT 05/09/2025 8:39 PM EDT Diane Guzman MD LAB POINT OF CARE T EST DOCKED DEVICE UNSOLICITED RESULTS Final Result Performing Organization Address City/[facility]/ZIP Co de Phone Number [facility] [address] [place] [address] * Magnesium (05/09/2025 5:54 PM EDT) Magnesium, Plasma 1.9 1.9 - 2.4 mg/dL 05/09/2025 6:56 PM EDT [facility] Blood Venous blood specimen / Unknown Venipuncture / Unknown 05/09/2025 5:54 PM EDT 05/09/2025 6:25 PM EDT us Selin Lee MD LAB BLOOD ORDERABLES Final Re sult [facility] [address] [place] [address] * (ABNORMAL) Basic metabolic panel (05/09/2025 5:54 [...] ORDERABLES Final Re sult Performing Organization Address City/[facility]/ZIP Co de Phone Number [facility] [address] [place] [address] * (ABNORMAL) POCT glucose meter (05/09/2025 5:17 PM EDT) [facility] POCT Glucose 398(H) 74 - 99 [...] Comment 05/09/2025 5:20 PM EDT [facility]ALTH[facility]ARE [facility] Knife Finisher ID Char Hinojosa 05/09/2025 5:20 PM EDT HEALTH[facility]ARE LAB Device ID [id number] 05/09/2025 5:20 PM EDT [facility]ALTH[facility]ARE [facility] Specimen Type POC Capillary 05/09/2025 5:20 PM EDT [facility] Blood Capillary blood specimen / Unknown 05/09/2025 5:17 PM EDT 05/09/2025 5:20 PM EDT us Diane Guzman MD LAB POINT OF CARE T EST DOCKED DEVICE UNSOLICITED RESULTS Final Result Performing Organization Address City/[facility]/ZIP Co de Phone Number [facility] [address] [place] [address] * ECG Adult (05/09/2025 12:34 PM EDT) [facility] EKG DIAGNOSIS CLASS Abnormal MUSE ECG Ventricular Rate 75 BPM MUSE ECG Atrial Rate 75 BPM MUSE ECG MT Interval 176 ms MUSE ECG QRSD Interval 164 ms MUSE ECG QT Interval 454 ms MUSE ECG QTC Interval 506 ms MUSE ECG P Strawberry 70 degrees MUSE ECG R Strawberry -38 degrees MUSE ECG T Wave Strawberry 2 degrees MUSE ECG Diagnosis Normal sinus rhythm MUSE ECG Diagnosis Left axis deviation MUSE ECG Diagnosis Right bundle branch block MUSE ECG Diagnosis Minimal voltage criteria for LVH, may be normal variant ( R in aVL ) MUSE ECG Diagnosis T wave abnormality, consider lateral ischemia MUSE ECG Diagnosis Abnormal ECG MUSE ECG Diagnosis MUSE ECG Diagnosis Confirmed by Garrett Robles ([id number]) on 05/09/2025 2:20:08 PM MUSE ECG 05/09/2025 [...] 05/09/2025 12:27 PM EDT [facility] Knife Finisher ID Dunia Montgomery 05/09/2025 12:27 PM EDT [facility]ALTH[facility]ARE LAB Device ID [id number] 05/09/2025 12:27 PM EDT [facility]ALTH[facility]ARE [facility] Specimen Type POC Capillary 05/09/2025 12:27 PM EDT [facility] Blood Capillary blood specimen / Unknown 05/09/2025 12:25 PM EDT 05/09/2025 12:27 PM EDT Diane Guzman MD LAB POINT OF CARE T EST DOCKED DEVICE UNSOLICITED RESULTS Final Result Performing Organization Address City/[facility]/ZIP Co de Phone Number [facility] [address] [place] [address] * (ABNORMAL) POCT glucose meter (05/09/2025 7:52 AM EDT) [facility] POCT Glucose 306(H) 74 - 99 [...] Comment 05/09/2025 7:54 AM EDT [facility]ALTH[facility] Knife Finisher ID Char Hinojosa 05/09/2025 7:54 AM EDT HEALTHCARE LAB Device ID [id number] 05/09/2025 7:54 AM EDT [facility]ALTH[facility]ARE LAB Specimen Type POC Capillary 05/09/2025 7:54 AM EDT [facility] Blood Capillary blood specimen / Unknown 05/09/2025 7:52 AM EDT 05/09/2025 7:54 AM EDT Diane Guzman MD LAB POINT OF CARE T EST DOCKED DEVICE UNSOLICITED RESULTS Final Result Performing Organization Address City/[facility]/ZIP Co de Phone Number [facility] [address] [place] [address] * (ABNORMAL) POCT glucose meter (05/08/2025 11:54 PM EDT) [facility] POCT Glucose 273(H) 74 - 99 [...] 05/08/2025 11:56 PM EDT [facility] Knife Finisher ID Kaylin Barron 05/08/2025 11:56 PM EDT HEALTHCARE LAB Device ID [id number] 05/08/2025 11:56 PM EDT [facility]ALTH[facility]ARE LAB Specimen Type POC Capillary 05/08/2025 11:56 PM EDT [facility] Blood Capillary blood specimen / Unknown 05/08/2025 11:54 PM EDT 05/08/2025 11:56 PM EDT Diane Guzman MD LAB POINT OF CARE T EST DOCKED DEVICE UNSOLICITED RESULTS Final Result Performing Organization Address City/[facility] Co de Phone Number [facility] [address] [place] [address] * (ABNORMAL) POCT glucose meter (05/08/2025 7:33 PM EDT) [facility] POCT Glucose 310(H) 74 - 99 [...] Comment 05/08/2025 7:35 PM EDT [facility]ALTH[facility]ARE [facility] Knife Finisher ID Kaylin Barron 05/08/2025 7:35 PM EDT HEALTH[facility]ARE LAB Device ID [id number] 05/08/2025 7:35 PM EDT [facility]ARE LAB Specimen Type POC Capillary 05/08/2025 7:35 PM EDT [facility] Blood Capillary blood specimen / Unknown 05/08/2025 7:33 PM EDT 05/08/2025 7:35 PM EDT Diane Guzman MD LAB POINT OF CARE T EST DOCKED DEVICE UNSOLICITED RESULTS Final Result Performing Organization Address City/[facility] Co de Phone Number [facility] [address] [place] [address] * (ABNORMAL) POCT glucose meter (05/08/2025 5:00 PM EDT) [facility] POCT Glucose 347(H) 74 - 99 [...] Comment 05/08/2025 5:02 PM EDT [facility]ALTH[facility]ARE [facility] Knife Finisher ID Char Hinojosa 05/08/2025 5:02 PM EDT HEALTH[facility]ARE LAB Device ID [id number] 05/08/2025 5:02 PM EDT HEALTHCARE LAB Specimen Type POC Capillary 05/08/2025 5:02 PM EDT [facility] Blood Capillary blood specimen / Unknown 05/08/2025 5:00 PM EDT 05/08/2025 5:02 PM EDT Diane Guzman MD LAB POINT OF CARE T EST DOCKED DEVICE UNSOLICITED RESULTS Final Result [facility] [address] [place] [address] * (ABNORMAL) POCT glucose meter (05/08/2025 11:42 AM EDT) [facility] POCT Glucose 298(H) 74 - 99 [...] Comment 05/08/2025 11:44 AM EDT [facility]ALTH[facility] Knife Finisher ID Char Hinojosa 05/08/2025 11:44 AM EDT HEALTHCARE LAB Device ID [id number] 05/08/2025 11:44 AM EDT [facility]ALTH[facility]ARE [facility] Specimen Type POC Capillary 05/08/2025 11:44 AM EDT [facility] Blood Capillary blood specimen / Unknown 05/08/2025 11:42 AM EDT 05/08/2025 11:44 AM EDT Result [facility] [place] Guzman MD LAB POINT OF CARE T EST DOCKED DEVICE UNSOLICITED RESULTS Final Result Performing Organization Address [facility] Co de Phone Number [facility] [address] [place] [address] * (ABNORMAL) POCT glucose meter (05/08/2025 8:05 AM EDT) [facility] POCT Glucose 346(H) 74 - 99 [...] Comment 05/08/2025 8:07 AM EDT [facility]ALTH[facility]ARE [facility] Knife Finisher ID Char Hinojosa 05/08/2025 8:07 AM EDT HEALTHCARE LAB Device ID [id number] 05/08/2025 8:07 AM EDT [facility] Specimen Type POC Capillary 05/08/2025 8:07 AM EDT [facility] Blood Capillary blood specimen / Unknown 05/08/2025 8:05 AM EDT 05/08/2025 8:07 AM EDT Result [facility] Diane Guzman MD LAB POINT OF CARE T EST DOCKED DEVICE UNSOLICITED RESULTS Final Result Performing Organization Address City/[facility] Co de Phone Number [facility] [address] [place] [address] * (ABNORMAL) POCT glucose meter (05/08/2025 3:56 AM EDT) [facility] POCT Glucose 388(H) 74 - 99 [...] Comment 05/08/2025 3:58 AM EDT [facility]ALTHCARE LAB Knife Finisher ID Stella Coleman 05/08/20 3:58 AM EDT HEALTHCARE LAB Device ID [id number] 05/08/2025 3:58 AM EDT [facility]ALTH[facility]ARE LAB Specimen Type POC Capillary 05/08/2025 3:58 AM EDT [facility]ALTH[facility] Blood Capillary blood specimen / Unknown 05/08/2025 3:56 AM EDT 05/08/2025 3:58 AM EDT us Diane Guzman MD LAB POINT OF CARE T EST DOCKED DEVICE UNSOLICITED RESULTS Final Result Performing Organization Address City/State/[facility] Co de Phone Number [facility] [address] [place] [address] * (ABNORMAL) POCT glucose meter (05/07/2025 8:14 PM EDT) [facility] POCT Glucose 392(H) 74 - 99 [...] Comment 05/07/2025 8:15 PM EDT [facility]ALTH[facility]ARE [facility] Knife Finisher ID Fela Coelho 05/07/2025 8:15 PM EDT HEALTHCARE LAB Device ID [id number] 05/07/2025 8:15 PM EDT [facility]ALTH[facility]ARE LAB Specimen Type POC Capillary 05/07/2025 8:15 PM EDT [facility] Blood Capillary blood specimen / Unknown 05/07/2025 8:14 PM EDT 05/07/2025 8:15 PM EDT us Diane Guzman MD LAB POINT OF CARE T EST DOCKED DEVICE UNSOLICITED RESULTS Final Result Performing Organization Address City/[facility]/ZIP Co de Phone Number [facility] [address] [place] [address] * (ABNORMAL) POCT glucose meter (05/07/2025 5:10 PM EDT) [facility] POCT Glucose 411(H) 74 - 99 [...] Comment 05/07/2025 5:13 PM EDT [facility]ALTHCARE LAB Knife Finisher ID Priyanka Negrete 05/07/20 5:13 PM EDT HEALTHCARE LAB Device ID [id number] 05/07/2025 5:13 PM EDT [facility] Specimen Type POC Capillary 05/07/2025 5:13 PM EDT [facility] Blood Capillary blood specimen / Unknown 05/07/2025 5:10 PM EDT 05/07/2025 5:13 PM EDT Diane Guzman MD LAB POINT OF CARE T EST DOCKED DEVICE UNSOLICITED RESULTS Final Result Performing Organization Address City/[facility]/ZIP Co de Phone Number [facility] [address] [place] [address] * (ABNORMAL) POCT glucose meter (05/07/2025 12:04 PM EDT) [facility] POCT Glucose 350(H) 74 - 99 [...] 05/07/2025 12:10 PM EDT [facility] Knife Finisher ID Priyanka Negrete 05/07/20 12:10 PM EDT [facility] Device ID [id number] 05/07/2025 12:10 PM EDT [facility]ALTH[facility]ARE LAB Specimen Type POC Capillary 05/07/2025 12:10 PM EDT [facility] Blood Capillary blood specimen / Unknown 05/07/2025 12:04 PM EDT 05/07/2025 12:10 PM EDT Diane Guzman MD LAB POINT OF CARE T EST DOCKED DEVICE UNSOLICITED RESULTS Final Result Performing Organization Address City/[facility] Co de Phone Number [facility] [address] [place] [address] * (ABNORMAL) POCT glucose meter (05/07/2025 7:41 AM EDT) [facility] POCT Glucose 356(H) 74 - 99 [...] Comment 05/07/2025 7:44 AM EDT HEALTHCARE LAB Knife Finisher ID Priyanka Negrete 05/07/20 7:44 AM EDT HEALTHCARE LAB Device ID [id number] 05/07/2025 7:44 AM EDT [facility]ALTH[facility]ARE LAB Specimen Type POC Capillary 05/07/2025 7:44 AM EDT [facility]ALTH[facility]ARE LAB Blood Capillary blood specimen / Unknown 05/07/2025 7:41 AM EDT 05/07/2025 7:44 AM EDT Diane Guzman MD LAB POINT OF CARE T EST DOCKED DEVICE UNSOLICITED RESULTS Final Result Performing Organization Address City/[facility] Co de Phone Number [facility] [address] [place] [address] * (ABNORMAL) POCT glucose meter (05/07/2025 3:41 AM EDT) Pathologist [facility] POCT Glucose 407(H) 74 - 99 mg/dL [...] 05/07/2025 3:43 AM EDT [facility] Knife Finisher ID Won Casas 05/07/2025 3:43 AM EDT [facility]ALTH[facility]ARE LAB Device ID [id number] 05/07/2025 3:43 AM EDT [facility]ALTHCARE LAB Specimen Type POC Capillary 05/07/2025 3:43 AM EDT [facility] Blood Capillary blood specimen / Unknown 05/07/2025 3:41 AM EDT 05/07/2025 3:43 AM EDT Diane Guzman MD LAB POINT OF CARE T EST DOCKED DEVICE UNSOLICITED RESULTS Final Result [facility] [address] [place] [address] * (ABNORMAL) POCT glucose meter (05/06/2025 8:01 PM EDT) [facility] POCT Glucose 324(H) 74 - 99 [...] Comment 05/06/2025 8:02 PM EDT [facility]ALTHCARE [facility] Knife Finisher ID Won Casas 05/06/2025 8:02 PM EDT HEALTHCARE LAB Device ID [id number] 05/06/2025 8:02 PM EDT [facility]ALTHCARE LAB Specimen Type POC Capillary 05/06/2025 8:02 PM EDT [facility] Blood Capillary blood specimen / Unknown 05/06/2025 8:01 PM EDT 05/06/2025 8:02 PM EDT Diane Guzman MD LAB POINT OF CARE T EST DOCKED DEVICE UNSOLICITED RESULTS Final Result Performing Organization Address [facility] Co de Phone Number [facility] [address] [place] [address] * (ABNORMAL) POCT glucose meter (05/06/2025 4:40 PM EDT) [facility] POCT Glucose 212(H) 74 - 99 [...] Comment 05/06/2025 4:46 PM EDT [facility] Knife Finisher ID Sherrell Navarro 05/06/2025 4:46 PM EDT [facility] Device ID [id number] 05/06/2025 4:46 PM EDT [facility] Specimen Type POC Capillary 05/06/2025 4:46 PM EDT [facility] Blood Capillary blood specimen / Unknown 05/06/2025 4:40 PM EDT 05/06/2025 4:46 PM EDT Diane Guzman MD LAB POINT OF CARE T EST DOCKED DEVICE UNSOLICITED RESULTS Final Result Performing Organization Address City/[facility]/ZIP Co de Phone Number [facility] [address] [place] [address] * PSA, diagnostic (05/06/2025 12:27 PM EDT) [facility] PSA, Diagnostic, Serum 0.03 0.00 - 2.50 ng/mL 05/06/2025 1:10 PM EDT [facility] Blood Venous blood specimen / Unknown Venipuncture / Unknown 05/06/2025 12:27 PM EDT 05/06/2025 12:33 PM EDT Narrative [facility] - 05/06/2025 1:10 PM EDT Performed by Bella electrochemiluminescent immunoassay which is standardized against the PSA [place] Reference Standard (WHO 96/670). Results obtained with different test methods or kits cannot be used interchangeably. Diane Guzman MD LAB BLOOD ORDERABLES Final Result Performing Organization Address City/[facility]/ZIP Co de Phone Number [facility] [address] [place] [address] * (ABNORMAL) POCT glucose meter (05/06/2025 11:28 [...] Comment 05/06/2025 11:30 AM EDT [facility]ALTHCARE LAB Knife Finisher ID Sherrell Navarro 05/06/2025 11:30 AM EDT [facility]ALTHCARE LAB Device ID [id number] 05/06/2025 11:30 AM EDT [facility] Specimen Type POC Capillary 05/06/2025 11:30 AM EDT [facility] Blood Capillary blood specimen / Unknown 05/06/2025 11:28 AM EDT 05/06/2025 11:30 AM EDT us Diane Guzman MD LAB POINT OF CARE T EST DOCKED DEVICE UNSOLICITED RESULTS Final Result Performing Organization Address City/[facility]/ZIP Co de Phone Number [facility] [address] [place] [address] * (ABNORMAL) POCT glucose meter (05/06/2025 8:13 [...] Comment 05/06/2025 8:23 AM EDT [facility] Knife Finisher ID Sherrell Navarro 05/06/2025 8:23 AM EDT [facility]ALTHCARE LAB Device ID [id number] 05/06/2025 8:23 AM EDT [facility]ALTHCARE LAB Specimen Type POC Capillary 05/06/2025 8:23 AM EDT [facility] Blood Capillary blood specimen / Unknown 05/06/2025 8:13 AM EDT 05/06/2025 8:23 AM EDT Diane Guzman MD LAB POINT OF CARE T EST DOCKED DEVICE UNSOLICITED RESULTS Final Result Performing Organization Address City/State/[facility] Co de Phone Number [facility] [address] [place] [address] * (ABNORMAL) POCT glucose meter (05/06/2025 3:09 AM EDT) [facility] Signature POCT Glucose 364(H) 74 - 99 [...] Comment 05/06/2025 3:11 AM EDT [facility]ALTH[facility]ARE [facility] Knife Finisher ID Won Casas 05/06/2025 3:11 AM EDT [facility]ALTH[facility]ARE LAB Device ID [id number] 05/06/2025 3:11 AM EDT [facility]ALTH[facility]ARE LAB Specimen Type POC Capillary 05/06/2025 3:11 AM EDT [facility] Blood Capillary blood specimen / Unknown 05/06/2025 3:09 AM EDT 05/06/2025 3:11 AM EDT Diane Guzman MD LAB POINT OF CARE T EST DOCKED DEVICE UNSOLICITED RESULTS Final Result [facility] [address] [place] [address] * (ABNORMAL) POCT glucose meter (05/05/2025 8:19 [...] Comment 05/05/2025 8:20 PM EDT [facility] Knife Finisher ID Won Casas 05/05/2025 8:20 PM EDT [facility]ALTH[facility]ARE LAB Device ID [id number] 05/05/2025 8:20 PM EDT [facility] Specimen Type POC Capillary 05/05/2025 8:20 PM EDT [facility] Blood Capillary blood specimen / Unknown 05/05/2025 8:19 PM EDT 05/05/2025 8:20 PM EDT us Diane Guzman MD LAB POINT OF CARE T EST DOCKED DEVICE UNSOLICITED RESULTS Final Result [facility] [address] [place] [address] * (ABNORMAL) POCT glucose meter (05/05/2025 5:09 [...] Comment 05/05/2025 5:14 PM EDT [facility]ALTH[facility]ARE [facility] Knife Finisher ID Sherrell Navarro 05/05/2025 5:14 PM EDT [facility] Device ID [id number] 05/05/2025 5:14 PM EDT [facility]ALTHCARE LAB Specimen Type POC Capillary 05/05/2025 5:14 PM EDT [facility] Blood Capillary blood specimen / Unknown 05/05/2025 5:09 PM EDT 05/05/2025 5:14 PM EDT Diane Guzman MD LAB POINT OF CARE T EST DOCKED DEVICE UNSOLICITED RESULTS Final Result Performing Organization Address [facility] Co de Phone Number [facility] [address] [place] [address] * (ABNORMAL) POCT glucose meter (05/05/2025 11:29 [...] Comment 05/05/2025 11:32 AM EDT [facility]ALTH[facility]ARE [facility] Knife Finisher ID Sherrell Navarro 05/05/2025 11:32 AM EDT HEALTHCARE LAB Device ID [id number] 05/05/2025 11:32 AM EDT [facility] Specimen Type POC Capillary 05/05/2025 11:32 AM EDT [facility] Blood Capillary blood specimen / Unknown 05/05/2025 11:29 AM EDT 05/05/2025 11:32 AM EDT Diane Guzman MD LAB POINT OF CARE T EST DOCKED DEVICE UNSOLICITED RESULTS Final Result Performing Organization Address City/[facility]/ZIP Co de Phone Number [facility] [address] [place] [address] * (ABNORMAL) POCT glucose meter (05/05/2025 7:55 [...] Comment 05/05/2025 7:57 AM EDT [facility]ALTHCARE LAB Knife Finisher ID Sherrell Navarro 05/05/2025 7:57 AM EDT HEALTHCARE LAB Device ID [id number] 05/05/2025 7:57 AM EDT [facility]ALTH[facility]ARE LAB Specimen Type POC Capillary 05/05/2025 7:57 AM EDT [facility] Blood Capillary blood specimen / Unknown 05/05/2025 7:55 AM EDT 05/05/2025 7:57 AM EDT Diane Guzman MD LAB POINT OF CARE T EST DOCKED DEVICE UNSOLICITED RESULTS Final Result Performing Organization Address City/State/[facility] Co de Phone Number [facility] [address] [place] [address] * (ABNORMAL) POCT glucose meter (05/04/2025 7:35 PM EDT) Pathologist [facility] POCT Glucose 236(H) 74 - 99 mg/dL [...] 05/04/2025 7:37 PM EDT [facility] Knife Finisher ID Kaylin Barron 05/04/2025 7:37 PM EDT [facility] Device ID [id number] 05/04/2025 7:37 PM EDT [facility] Specimen Type POC Capillary 05/04/2025 7:37 PM EDT [facility]ALTH[facility]ARE LAB Blood Capillary blood specimen / Unknown 05/04/2025 7:35 PM EDT 05/04/2025 7:37 PM EDT Diane Guzman MD LAB POINT OF CARE T EST DOCKED DEVICE UNSOLICITED RESULTS Final Result Performing Organization Address City/[facility]/ZIP Co de Phone Number [facility] [address] [place] [address] * (ABNORMAL) POCT glucose meter (05/04/2025 4:51 [...] Comment 05/04/2025 4:53 PM EDT [facility]ALTH[facility]ARE [facility] Knife Finisher ID Araceli Doran 025 4:53 PM EDT HEALTHCARE LAB Device ID [id number] 05/04/2025 4:53 PM EDT HEALTHCARE LAB Specimen Type POC Capillary 05/04/2025 4:53 PM EDT [facility] LAB Blood Capillary blood specimen / Unknown 05/04/2025 4:51 PM EDT 05/04/2025 4:53 PM EDT Diane Guzman MD LAB POINT OF CARE T EST DOCKED DEVICE UNSOLICITED RESULTS Final Result Performing Organization Address City/[facility]/ZIP Co de Phone Number [facility] [address] [place] [address] * (ABNORMAL) POCT glucose meter (05/04/2025 11:51 [...] Comment 05/04/2025 11:56 AM EDT [facility] Knife Finisher ID Araceli Doran 025 11:56 AM EDT HEALTHCARE LAB Device ID [id number] 05/04/2025 11:56 AM EDT HEALTH[facility]ARE LAB Specimen Type POC Capillary 05/04/2025 11:56 AM EDT [facility]ALTH[facility]ARE LAB Blood Capillary blood specimen / Unknown 05/04/2025 11:51 AM EDT 05/04/2025 11:56 AM EDT Diane Guzman MD LAB POINT OF CARE T EST DOCKED DEVICE UNSOLICITED RESULTS Final Result Performing Organization Address City/State/[facility] Co de Phone Number [facility] [address] [place] [address] * (ABNORMAL) POCT glucose meter (05/04/2025 8:09 [...] Comment 05/04/2025 8:17 AM EDT [facility]ALTH[facility]ARE [facility] Knife Finisher ID Araceli Doran 025 8:17 AM EDT HEALTHCARE LAB Device ID [id number] 05/04/2025 8:17 AM EDT HEALTHCARE LAB Specimen Type POC Capillary 05/04/2025 8:17 AM EDT [facility] LAB Blood Capillary blood specimen / Unknown 05/04/2025 8:09 AM EDT 05/04/2025 8:17 AM EDT us Diane Guzman MD LAB POINT OF CARE T EST DOCKED DEVICE UNSOLICITED RESULTS Final Result [facility] [address] [place] [address] * (ABNORMAL) POCT glucose meter (05/04/2025 4:44 [...] for testing. Comment 05/04/2025 4:46 AM EDT [facility] Knife Finisher ID Kaylin Barron 05/04/2025 4:46 AM EDT [facility] Device ID [id number] 05/04/2025 4:46 AM EDT [facility] Specimen Type POC Capillary 05/04/2025 4:46 AM EDT [facility] Blood Capillary blood specimen / Unknown 05/04/2025 4:44 AM EDT 05/04/2025 4:46 AM EDT us Diane Guzman MD LAB POINT OF CARE T EST DOCKED DEVICE UNSOLICITED RESULTS Final Result [facility] [address] [place] [address] * (ABNORMAL) POCT glucose meter (05/03/2025 7:27 [...] Comment 05/03/2025 7:33 PM EDT [facility]ALTHCARE [facility] Knife Finisher ID Kaylin Barron 05/03/2025 7:33 PM EDT HEALTHCARE LAB Device ID [id number] 05/03/2025 7:33 PM EDT HEALTHCARE LAB Specimen Type POC Capillary 05/03/2025 7:33 PM EDT [facility]ARE [facility] Blood Capillary blood specimen / Unknown 05/03/2025 7:27 PM EDT 05/03/2025 7:33 PM EDT us Diane Guzman MD LAB POINT OF CARE T EST DOCKED DEVICE UNSOLICITED RESULTS Final Result [facility] [address] [place] [address] * (ABNORMAL) Comprehensive metabolic panel (05/03/2025 6:22 [...] Final Result [facility] [address] [place] [address] * Creatine Kinase (CK), Total (05/03/2025 6:22 PM EDT) Creatine Kinase, Plasma 54 49 - 320 U/L 05/03/2025 7:13 PM EDT [facility] Blood Venous blood specimen / Unknown Venipuncture / Unknown 05/03/2025 6:22 PM EDT 05/03/2025 6:38 PM EDT Diane Guzman MD LAB BLOOD ORDERABLES Final Result [facility] [address] [place] [address] * (ABNORMAL) POCT glucose meter (05/03/2025 5:30 PM EDT) [facility] POCT Glucose 258(H) 74 - 99 [...] Comment 05/03/2025 5:33 PM EDT [facility]ALTH[facility]ARE [facility] Knife Finisher ID Dunia Montgomery 05/03/2025 5:33 PM EDT HEALTHCARE LAB Device ID [id number] 05/03/2025 5:33 PM EDT HEALTH[facility]ARE LAB Specimen Type POC Capillary 05/03/2025 5:33 PM EDT [facility]ALTH[facility]ARE [facility] Blood Capillary blood specimen / Unknown 05/03/2025 5:30 PM EDT 05/03/2025 5:33 PM EDT Diane Guzman MD LAB POINT OF CARE T EST DOCKED DEVICE UNSOLICITED RESULTS Final Result [facility] [address] [place] [address] * (ABNORMAL) POCT glucose meter (05/03/2025 11:36 AM EDT) [facility] POCT Glucose 310(H) 74 - 99 [...] 05/03/2025 11:38 AM EDT [facility] Knife Finisher ID Kindra Cardoza 05/03/2025 11:38 AM EDT HEALTHCARE LAB Device ID [id number] 05/03/2025 11:38 AM EDT [facility]ALTH[facility]ARE LAB Specimen Type POC Capillary 05/03/2025 11:38 AM EDT [facility]ALTH[facility] Blood Capillary blood specimen / Unknown 05/03/2025 11:36 AM EDT 05/03/2025 11:38 AM EDT Diane Guzman MD LAB POINT OF CARE T EST DOCKED DEVICE UNSOLICITED RESULTS Final Result Performing Organization Address City/[facility] Co de Phone Number [facility] [address] [place] [address] * (ABNORMAL) POCT glucose meter (05/03/2025 8:09 AM EDT) [facility] POCT Glucose 339(H) 74 - 99 [...] Comment 05/03/2025 8:11 AM EDT [facility]ALTH[facility]ARE [facility] Knife Finisher ID Dunia Montgomery 05/03/2025 8:11 AM EDT HEALTHCARE LAB Device ID [id number] 05/03/2025 8:11 AM EDT HEALTHCARE LAB Specimen Type POC Capillary 05/03/2025 8:11 AM EDT [facility]ALTH[facility] Blood Capillary blood specimen / Unknown 05/03/2025 8:09 AM EDT 05/03/2025 8:11 AM EDT Diane Guzman MD LAB POINT OF CARE T EST DOCKED DEVICE UNSOLICITED RESULTS Final Result Performing Organization Address City/[facility]/ZIP Co de Phone Number [facility] [address] [place] [address] * (ABNORMAL) POCT glucose meter (05/03/2025 3:37 AM EDT) Pathologist [facility] POCT Glucose 372(H) 74 - 99 mg/dL [...] Comment 05/03/2025 3:40 AM EDT [facility]ALTH[facility]ARE [facility] Knife Finisher ID Maribell Saeed 3:40 AM EDT [facility] Device ID [id number] 05/03/2025 3:40 AM EDT [facility] Specimen Type POC Capillary 05/03/2025 3:40 AM EDT [facility] Blood Capillary blood specimen / Unknown 05/03/2025 3:37 AM EDT 05/03/2025 3:40 AM EDT Diane Guzman MD LAB POINT OF CARE T EST DOCKED DEVICE UNSOLICITED RESULTS Final Result [facility] [address] [place] [address] * (ABNORMAL) CBC and Differential (05/03/2025 3:16 [...] Resul t [facility] [address] [place] [address] * (ABNORMAL) Basic Metabolic Panel, Plasma (05/03/2025 [...] ORDERABLES Final Resul t Performing Organization Address City/[facility]/ZIP Co de Phone Number [facility] [address] [place] [address] * (ABNORMAL) Magnesium, Plasma (05/03/2025 3:16 AM EDT) Magnesium, Plasma 1.7(L) 1.9 - 2.4 mg/dL 05/03/2025 4:02 AM EDT [facility] Blood Venous blood specimen / Unknown Venipuncture / Unknown 05/03/2025 3:16 AM EDT 05/03/2025 3:24 AM EDT Result Shannon Myers MD LAB BLOOD ORDERABLES Final Resul t [facility] [address] [place] [address] * Phosphorus, Plasma (05/03/2025 3:16 AM EDT) Phosphorus, Plasma 3.6 2.5 - 4.5 mg/dL 05/03/2025 4:02 AM EDT [facility] Blood Venous blood specimen / Unknown Venipuncture / Unknown 05/03/2025 3:16 AM EDT 05/03/2025 3:24 AM EDT us Marjorie Myers MD LAB BLOOD ORDERABLES Final Resul t Performing Organization Address City/[facility]/ZIP Co de Phone Number [facility] [address] [place] [address] * Hepatitis B Core Total Antibody IgG,IgM (05/03/2025 3:16 AM EDT) Hepatitis B Core Total Antibody IgG,IgM Negative Negative 05/03/2025 4:28 AM EDT [facility] Blood Venous blood specimen / Unknown Venipuncture / Unknown 05/03/2025 3:16 AM EDT 05/03/2025 3:24 AM EDT us Diane Guzman MD LAB BLOOD ORDERABLES Final Result Performing Organization Address [facility] Co de Phone Number [facility] [address] [place] [address] * Hepatitis B Surface Antigen (05/03/2025 3:16 AM EDT) Hepatitis B Surf Antigen Negative Negative 05/03/2025 4:28 AM EDT [facility] Blood Venous blood specimen / Unknown Venipuncture / Unknown 05/03/2025 3:16 AM EDT 05/03/2025 3:24 AM EDT us Diane Guzman MD LAB BLOOD ORDERABLES Final Result Performing Organization Address [facility] Co de Phone Number [facility] [address] [place] [address] * Hepatitis B Surface Antibody, Quantitative (05/03/2025 3:16 AM EDT) Hepatitis B Surface Antibody, Quantitative <8.00 NonReactiv e: <8, Grayzone: 8 - <12, Reactive: >= 12 mIU/mL 05/03/2025 4:28 AM EDT [facility] Comment: Nonreactive. Individual is considered not immune to HBV infection. Blood Venous blood specimen / Unknown Venipuncture / Unknown 05/03/2025 3:16 AM EDT 05/03/2025 3:24 AM EDT us Diane Guzman MD LAB BLOOD ORDERABLES Final Result Performing Organization Address City/[facility]/ZIP Co de Phone Number [facility] [address] [place] [address] * Hepatitis A Antibody IgG (05/03/2025 3:16 AM EDT) [facility] Hepatitis A Antibody IgG Negative Negative 05/03/2025 4:28 AM EDT [facility] Blood Venous blood specimen / Unknown Venipuncture / Unknown 05/03/2025 3:16 AM EDT 05/03/2025 3:24 AM EDT us Diane Guzman MD LAB BLOOD ORDERABLES Final Result Performing Organization Address [facility] [place] [address] * (ABNORMAL) POCT glucose meter (05/02/2025 8:48 PM EDT) [facility] POCT Glucose 325(H) 74 - 99 [...] 05/02/2025 8:50 PM EDT [facility] Knife Finisher ID Maribell Saeed 8:50 PM EDT [facility] Device ID [id number] 05/02/2025 8:50 PM EDT [facility]ALTH[facility]ARE LAB Specimen Type POC Capillary 05/02/2025 8:50 PM EDT [facility] Blood Capillary blood specimen / Unknown 05/02/2025 8:48 PM EDT 05/02/2025 8:50 PM EDT us Diane Guzman MD LAB POINT OF CARE T EST DOCKED DEVICE UNSOLICITED RESULTS Final Result Performing Organization Address City/[facility] Co de Phone Number [facility] [address] [place] [address] * (ABNORMAL) POCT glucose meter (05/02/2025 4:30 PM EDT) [facility] POCT Glucose 250(H) 74 - 99 [...] Comment 05/02/2025 4:32 PM EDT [facility]ALTH[facility]ARE [facility] Knife Finisher ID EfraínSebastián 4:32 PM EDT HEALTHCARE LAB Device ID [id number] 05/02/2025 4:32 PM EDT [facility]ALTH[facility]ARE LAB Specimen Type POC Capillary 05/02/2025 4:32 PM EDT [facility] Blood Capillary blood specimen / Unknown 05/02/2025 4:30 PM EDT 05/02/2025 4:32 PM EDT Diane Guzman MD LAB POINT OF CARE T EST DOCKED DEVICE UNSOLICITED RESULTS Final Result [facility] [address] [place] [address] * Nasopharyngeal Respiratory Panel (05/02/2025 1:05 PM EDT) [facility] Nasopharyngeal Respiratory PCR Interpretation Not Detected [...] Respiratory PCR Panel is performed using the [employer] e[employer] instrument. This test is FDA approved for use with Nasopharyngeal swabs only. This test is used for clinical purposes. It should not be regarded as investigational or for research. The [facility] Clinical Microbiology Laboratory is certified under the Clinical Laboratory Improvement Amendments of 1988 (CLIA-88) as qualified to perform high complexity clinical laboratory testing. us Diane Guzman MD LAB MICROBIOLOGY - GENERAL ORDERABLES Final Result [facility] [address] [place] [address] * (ABNORMAL) POCT glucose meter (05/02/2025 12:08 PM EDT) [facility] POCT Glucose 278(H) 74 - 99 mg/dL 05/02/2025 12:10 PM EDT [facility] Comment:Accuracy of a glucos e [...] for testing. Comment 05/02/2025 12:10 PM EDT [facility] Knife Finisher ID Sebastián Kenny 12:10 PM EDT [facility] Device ID [id number] 05/02/2025 12:10 PM EDT HEALTHCARE LAB Specimen Type POC Capillary 05/02/2025 12:10 PM EDT [facility] Blood Capillary blood specimen / Unknown 05/02/2025 12:08 PM EDT 05/02/2025 12:10 PM EDT us Diane Guzman MD LAB POINT OF CARE T EST DOCKED DEVICE UNSOLICITED RESULTS Final Result [facility] [address] [place] [address] * (ABNORMAL) POCT glucose meter (05/02/2025 8:11 AM EDT) [facility] POCT Glucose 283(H) 74 - 99 [...] Comment 05/02/2025 8:12 AM EDT [facility]ALTHCARE [facility] Knife Finisher ID Sebastián Kenny 8:12 AM EDT [facility] Device ID [id number] 05/02/2025 8:12 AM EDT HEALTHCARE LAB Specimen Type POC Capillary 05/02/2025 8:12 AM EDT [facility] Blood Capillary blood specimen / Unknown 05/02/2025 8:11 AM EDT 05/02/2025 8:12 AM EDT Diane Guzman MD LAB POINT OF CARE T EST DOCKED DEVICE UNSOLICITED RESULTS Final Result [facility] [address] [place] [address] * (ABNORMAL) POCT glucose meter (05/02/2025 4:01 AM EDT) [facility] POCT Glucose 320(H) 74 - 99 [...] 05/02/2025 4:03 AM EDT [facility] Knife Finisher ID Stella Coleman 05/02/20 4:03 AM EDT [facility] Device ID [id number] 05/02/2025 4:03 AM EDT [facility] Specimen Type POC Capillary 05/02/2025 4:03 AM EDT [facility] Blood Capillary blood specimen / Unknown 05/02/2025 4:01 AM EDT 05/02/2025 4:03 AM EDT us Marjorie Myers MD LAB POINT OF CARE TE ST DOCKED DEVICE UNSOLICITED RESULTS Final Result [facility] [address] [place] [address] * (ABNORMAL) CBC and Differential (05/02/2025 3:10 [...] Resul t [facility] [address] [place] [address] * (ABNORMAL) Basic Metabolic Panel, Plasma (05/02/2025 [...] Resul t [facility] [address] [place] [address] * (ABNORMAL) Magnesium, Plasma (05/02/2025 3:10 AM EDT) Magnesium, Plasma 1.6(L) 1.9 - 2.4 mg/dL 05/02/2025 3:45 AM EDT [facility] Blood Venous blood specimen / Unknown Venipuncture / Unknown 05/02/2025 3:10 AM EDT 05/02/2025 3:15 AM EDT us Marjorie Myers MD LAB BLOOD ORDERABLES Final Resul t Performing Organization Address City/[facility]/ZIP Co de Phone Number [facility] [address] [place] [address] * Phosphorus, Plasma (05/02/2025 3:10 AM EDT) Phosphorus, Plasma 3.0 2.5 - 4.5 mg/dL 05/02/2025 3:45 AM EDT [facility] Blood Venous blood specimen / Unknown Venipuncture / Unknown 05/02/2025 3:10 AM EDT 05/02/2025 3:15 AM EDT us Marjorie Myers MD LAB BLOOD ORDERABLES Final Resul t [facility] [address] [place] [address] * Creatine Kinase (CK), Total (05/02/2025 3:10 AM EDT) Creatine Kinase, Plasma 50 49 - 320 U/L 05/02/2025 3:45 AM EDT [facility] Blood Venous blood specimen / Unknown Venipuncture / Unknown 05/02/2025 3:10 AM EDT 05/02/2025 3:15 AM EDT Marjorie Myers MD LAB BLOOD ORDERABLES Final Resul t Performing Organization Address City/[facility] Co de Phone Number [facility] [address] [place] [address] * (ABNORMAL) POCT glucose meter (05/01/2025 8:26 PM EDT) Pathologist [facility] POCT Glucose 316(H) 74 - 99 mg/dL [...] Comment 05/01/2025 8:27 PM EDT [facility]ALTH[facility] Knife Finisher ID Stella Coleman 05/01/20 8:27 PM EDT [facility] Device ID [id number] 05/01/2025 8:27 PM EDT [facility] Specimen Type POC Capillary 05/01/2025 8:27 PM EDT [facility] Blood Capillary blood specimen / Unknown 05/01/2025 8:26 PM EDT 05/01/2025 8:27 PM EDT Marjorie Myers MD LAB POINT OF CARE TE ST DOCKED DEVICE UNSOLICITED RESULTS Final Result Performing Organization Address City/[facility] Co de Phone Number [facility] [address] [place] [address] * (ABNORMAL) POCT glucose meter (05/01/2025 5:55 PM EDT) Pathologist [facility] POCT Glucose 294(H) 74 - 99 mg/dL [...] Comment 05/01/2025 5:57 PM EDT [facility]ARE [facility] Knife Finisher ID EfraínSebastián 5:57 PM EDT [facility] Device ID [id number] 05/01/2025 5:57 PM EDT [facility] Specimen Type POC Capillary 05/01/2025 5:57 PM EDT [facility] Blood Capillary blood specimen / Unknown 05/01/2025 5:55 PM EDT 05/01/2025 5:57 PM EDT us Marjorie Myers MD LAB POINT OF CARE TE ST DOCKED DEVICE UNSOLICITED RESULTS Final Result Performing Organization Address City/[facility] Co de Phone Number HEALTHCARE LAB [address] [place] [address] * (ABNORMAL) POCT glucose meter (05/01/2025 11:51 AM EDT) [facility] POCT Glucose 301(H) 74 - 99 [...] 05/01/2025 11:53 AM EDT [facility] Knife Finisher ID Sebastián Kenny 11:53 AM EDT [facility] Device ID [id number] 05/01/2025 11:53 AM EDT [facility]ALTH[facility]ARE LAB Specimen Type POC Capillary 05/01/2025 11:53 AM EDT [facility] Blood Capillary blood specimen / Unknown 05/01/2025 11:51 AM EDT 05/01/2025 11:53 AM EDT us Marjorie Myers MD LAB POINT OF CARE TE ST DOCKED DEVICE UNSOLICITED RESULTS Final Result [facility] [address] [place] [address] * (ABNORMAL) POCT glucose meter (05/01/2025 9:13 [...] Comment 05/01/2025 9:15 AM EDT [facility]ALTHCARE LAB Knife Finisher ID Francisco Javier Martin 05/01/2025 9:15 AM EDT HEALTHCARE LAB Device ID [id number] 05/01/2025 9:15 AM EDT [facility]ALTH[facility]ARE LAB Specimen Type POC Capillary 05/01/2025 9:15 AM EDT [facility] Blood Capillary blood specimen / Unknown 05/01/2025 9:13 AM EDT 05/01/2025 9:15 AM EDT Marjorie Myers MD LAB POINT OF CARE TE ST DOCKED DEVICE UNSOLICITED RESULTS Final Result [facility] [address] [place] [address] * Surgical Pathology Exam (05/01/2025 8:13 AM EDT) Case Report Surgical Pathology Case: [id number] Authorizing Provider: Mary Vicente MD Collected: 05/01/2025 [...] Information 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 Trouble Tracer sections are submitted as follows: A1-A2: Necrotic [...] HOSPITAL LAB Note: 05/09/2025 9:56 AM EDT [facility] Comment:Corrected result: Pr eviously [...] Edited Result - Final Performing Organization Address City/[facility] [place] [address] * Type and Screen (05/01/2025 6:49 AM [...] ORDERA BLES Final Result Performing Organization Address [facility] de Phone Number BLOOD BANK [address] [place] [address] * (ABNORMAL) POCT glucose meter (05/01/2025 6:48 AM EDT) POCT Glucose 222(H) 74 - 99 mg/dL 05/01/2025 6:50 AM EDT [facility] Comment:Accuracy of a glucos e result [...] Comment 05/01/2025 6:50 AM EDT [facility]ALTHCARE [facility] Knife Finisher ID Emelina Romero 6:50 AM EDT HEALTHCARE LAB Device ID [id number] 05/01/2025 6:50 AM EDT [facility] LAB Specimen Type POC Venous 05/01/2025 6:50 AM EDT [facility]ALTH[facility] Blood Venous blood specimen / Unknown 05/01/2025 6:48 AM EDT 05/01/2025 6:50 AM EDT us Marjorie Myers MD LAB POINT OF CARE TE ST DOCKED DEVICE UNSOLICITED RESULTS Final Result Performing Organization Address City/[facility] Co de Phone Number HEALTHCARE LAB [address] [place] [address] * Creatine Kinase (CK), Total (05/01/2025 2:14 AM EDT) Creatine Kinase, Plasma 60 49 - 320 U/L 05/01/2025 2:53 AM EDT [facility] Blood Venous blood specimen / Unknown Venipuncture / Unknown 05/01/2025 2:14 AM EDT 05/01/2025 2:26 AM EDT us Marjorie Myers MD LAB BLOOD ORDERABLES Final Resul t Performing Organization Address City/[facility]/ZIP Co de Phone Number [facility] [address] [place] [address] * (ABNORMAL) CBC and Differential (05/01/2025 2:14 [...] Resul t [facility] [address] [place] [address] * (ABNORMAL) Basic Metabolic Panel, Plasma (05/01/2025 [...] ORDERABLES Final Resul t Performing Organization Address City/[facility]/ZIP Co de Phone Number [facility] [address] [place] [address] * (ABNORMAL) Magnesium, Plasma (05/01/2025 2:14 AM EDT) Magnesium, Plasma 1.8(L) 1.9 - 2.4 mg/dL 05/01/2025 2:53 AM EDT [facility] Blood Venous blood specimen / Unknown Venipuncture / Unknown 05/01/2025 2:14 AM EDT 05/01/2025 2:26 AM EDT us Marjorie Myers MD LAB BLOOD ORDERABLES Final Resul t [facility] [address] [place] [address] * Phosphorus, Plasma (05/01/2025 2:14 AM EDT) Phosphorus, Plasma 3.0 2.5 - 4.5 mg/dL 05/01/2025 2:53 AM EDT [facility] Blood Venous blood specimen / Unknown Venipuncture / Unknown 05/01/2025 2:14 AM EDT 05/01/2025 2:26 AM EDT Marjorie Myers MD LAB BLOOD ORDERABLES Final Resul t [facility] [address] [place] [address] * (ABNORMAL) POCT glucose meter (04/30/2025 8:21 [...] Comment 04/30/2025 8:23 PM EDT [facility]ALTH[facility] Knife Finisher ID Sandra Perez 04/30/20 8:23 PM EDT HEALTHCARE LAB Device ID [id number] 04/30/2025 8:23 PM EDT [facility]ARE LAB Specimen Type POC Capillary 04/30/2025 8:23 PM EDT [facility] Blood Capillary blood specimen / Unknown 04/30/2025 8:21 PM EDT 04/30/2025 8:23 PM EDT Marjorie Myers MD LAB POINT OF CARE TE ST DOCKED DEVICE UNSOLICITED RESULTS Final Result [facility] [address] [place] [address] * (ABNORMAL) POCT glucose meter (04/30/2025 4:19 [...] Comment 04/30/2025 4:54 PM EDT [facility] Knife Finisher ID Priyanka Negrete 04/30/20 4:54 PM EDT HEALTH[facility]ARE LAB Device ID [id number] 04/30/2025 4:54 PM EDT [facility] Specimen Type POC Capillary 04/30/2025 4:54 PM EDT [facility] Blood Capillary blood specimen / Unknown 04/30/2025 4:19 PM EDT 04/30/2025 4:54 PM EDT Marjorie Myers MD LAB POINT OF CARE TE ST DOCKED DEVICE UNSOLICITED RESULTS Final Result Performing Organization Address City/State/[facility] Co de Phone Number [facility] [address] [place] [address] * (ABNORMAL) POCT glucose meter (04/30/2025 12:11 PM EDT) [facility] POCT Glucose 226(H) 74 - 99 [...] 04/30/2025 12:50 PM EDT [facility] Knife Finisher ID Priyanka Negrete 04/30/20 12:50 PM EDT [facility] Device ID [id number] 04/30/2025 12:50 PM EDT [facility]ALTH[facility]ARE LAB Specimen Type POC Capillary 04/30/2025 12:50 PM EDT [facility]ALTH[facility]ARE LAB Blood Capillary blood specimen / Unknown 04/30/2025 12:11 PM EDT 04/30/2025 12:50 PM EDT us Marjorie Myers MD LAB POINT OF CARE TE ST DOCKED DEVICE UNSOLICITED RESULTS Final Result Performing Organization Address City/[facility]/ZIP Co de Phone Number [facility]ARE LAB [address] [place] [address] * (ABNORMAL) POCT glucose meter (04/30/2025 8:18 [...] Comment 04/30/2025 8:55 AM EDT [facility]ALTHCARE LAB Knife Finisher ID Priyanka Negrete 04/30/20 8:55 AM EDT [facility] Device ID [id number] 04/30/2025 8:55 AM EDT [facility] Specimen Type POC Capillary 04/30/2025 8:55 AM EDT [facility] Blood Capillary blood specimen / Unknown 04/30/2025 8:18 AM EDT 04/30/2025 8:55 AM EDT us Marjorie Myers MD LAB POINT OF CARE TE ST DOCKED DEVICE UNSOLICITED RESULTS Final Result Performing Organization Address City/[facility]/ZIP Co de Phone Number [facility]ALTH[facility]ARE LAB [address] [place] [address] * (ABNORMAL) CBC and Differential (04/30/2025 3:19 [...] Resul t [facility] [address] [place] [address] * (ABNORMAL) Basic Metabolic Panel, Plasma (04/30/2025 [...] Resul t [facility] [address] [place] [address] * (ABNORMAL) Magnesium, Plasma (04/30/2025 3:19 AM EDT) Magnesium, Plasma 1.5(L) 1.9 - 2.4 mg/dL 04/30/2025 3:56 AM EDT [facility] Blood Venous blood specimen / Unknown Venipuncture / Unknown 04/30/2025 3:19 AM EDT 04/30/2025 3:26 AM EDT us Marjorie Myers MD LAB BLOOD ORDERABLES Final Resul t [facility] [address] [place] [address] * Phosphorus, Plasma (04/30/2025 3:19 AM EDT) [facility] Phosphorus, Plasma 2.7 2.5 - 4.5 mg/dL 04/30/2025 3:56 AM EDT [facility] Blood Venous blood specimen / Unknown Venipuncture / Unknown 04/30/2025 3:19 AM EDT 04/30/2025 3:26 AM EDT Marjorie Myers MD LAB BLOOD ORDERABLES Final Resul t [facility] [address] [place] [address] * (ABNORMAL) POCT glucose meter (04/29/2025 7:38 PM EDT) [facility] POCT Glucose 191(H) 74 - 99 [...] Comment 04/29/2025 9:20 PM EDT [facility] Knife Finisher ID Ervin Du V 025 9:20 PM EDT HEALTHCARE LAB Device ID [id number] 04/29/2025 9:20 PM EDT HEALTHCARE LAB Specimen Type POC Capillary 04/29/2025 9:20 PM EDT [facility] Blood Capillary blood specimen / Unknown 04/29/2025 7:38 PM EDT 04/29/2025 9:20 PM EDT us Marjorie Myers MD LAB POINT OF CARE TE ST DOCKED DEVICE UNSOLICITED RESULTS Final Result [facility] [address] [place] [address] * (ABNORMAL) POCT glucose meter (04/29/2025 5:21 PM EDT) [facility] POCT Glucose 241(H) 74 - 99 [...] 04/29/2025 5:23 PM EDT [facility] Knife Finisher ID Rocio Dozier 04/29/20 5:23 PM EDT [facility] Device ID [id number] 04/29/2025 5:23 PM EDT [facility] Specimen Type POC Capillary 04/29/2025 5:23 PM EDT [facility] Blood Capillary blood specimen / Unknown 04/29/2025 5:21 PM EDT 04/29/2025 5:23 PM EDT Marjorie Myers MD LAB POINT OF CARE TE ST DOCKED DEVICE UNSOLICITED RESULTS Final Result [facility] [address] [place] [address] * (ABNORMAL) POCT glucose meter (04/29/2025 11:15 AM EDT) [facility] POCT Glucose 204(H) 74 - 99 [...] 04/29/2025 11:17 AM EDT [facility] Knife Finisher ID Rocio Dozier 04/29/20 11:17 AM EDT [facility] Device ID [id number] 04/29/2025 11:17 AM EDT [facility] Specimen Type POC Capillary 04/29/2025 11:17 AM EDT [facility] Blood Capillary blood specimen / Unknown 04/29/2025 11:15 AM EDT 04/29/2025 11:17 AM EDT Marjorie Myers MD LAB POINT OF CARE TE ST DOCKED DEVICE UNSOLICITED RESULTS Final Result Performing Organization Address City/[facility] Co de Phone Number HEALTHCARE LAB [address] [place] [address] * (ABNORMAL) POCT glucose meter (04/29/2025 7:13 AM EDT) [facility] POCT Glucose 269(H) 74 - 99 [...] Comment 04/29/2025 7:14 AM EDT [facility]ALTHCARE LAB Knife Finisher ID Rocio Dozier 04/29/20 7:14 AM EDT HEALTHCARE LAB Device ID [id number] 04/29/2025 7:14 AM EDT [facility] Specimen Type POC Capillary 04/29/2025 7:14 AM EDT [facility] Blood Capillary blood specimen / Unknown 04/29/2025 7:13 AM EDT 04/29/2025 7:14 AM EDT Marjorie Myers MD LAB POINT OF CARE TE ST DOCKED DEVICE UNSOLICITED RESULTS Final Result Performing Organization Address City/[facility]/ZIP Co de Phone Number [facility]ALTHCARE LAB [address] [place] [address] * Folate (04/29/2025 3:04 AM EDT) [facility] Folate, Serum 10.5 >4.6 ng/mL 04/29/2025 4:05 AM EDT [facility] Blood Venous blood specimen / Unknown Venipuncture / Unknown 04/29/2025 3:04 AM EDT 04/29/2025 3:20 AM EDT us Sy De La Fuente APRN, DNP LAB BLOOD ORDERABLES Fin al Result [facility] [address] [place] [address] * Vitamin B12 (04/29/2025 3:04 AM EDT) Vitamin B12, Serum 338 210 - 1,033 pg/mL 04/29/2025 4:06 AM EDT [facility] Blood Venous blood specimen / Unknown Venipuncture / Unknown 04/29/2025 3:04 AM EDT 04/29/2025 3:20 AM EDT us Sy De La Fuente APRN, DNP LAB BLOOD ORDERABLES Fin al Result Performing Organization Address [facility]/ZIP Co de Phone Number [facility] [address] [place] [address] * (ABNORMAL) Iron & Total Iron Binding [...] - 50 % 04/29/2025 3:55 AM EDT [facility] Blood Venous blood specimen / Unknown Venipuncture / Unknown 04/29/2025 3:04 AM EDT 04/29/2025 3:19 AM EDT us Sy De La Fuente APRN, DNP LAB BLOOD ORDERABLES Fin al Result [facility] [address] [place] [address] * Ferritin (04/29/2025 3:04 AM EDT) Ferritin, Serum 40 20 - 400 ng/mL 04/29/2025 4:06 AM EDT [facility] Blood Venous blood specimen / Unknown Venipuncture / Unknown 04/29/2025 3:04 AM EDT 04/29/2025 3:20 AM EDT us Sy De La Fuente APRN, DNP LAB BLOOD ORDERABLES Fin al Result Performing Organization Address [facility] Phone Number [facility] [address] [place] [address] * Cortisol (04/29/2025 3:04 AM EDT) Cortisol 2.80 Before 10am: 3.7 - 19.4. After 5pm: 2.9 - 17.3 ug/dL 04/29/2025 4:22 AM EDT [facility] Comment:Testing performed on [employer], standardized against SNF Reference Standard concentration values assigned by LC-MS/MS and verified by BCR 192 and BCR 193 certified reference materials. Blood Venous blood specimen / Unknown Venipuncture / Unknown 04/29/2025 3:04 AM EDT 04/29/2025 3:19 AM EDT us Sy De La Fuente APRN, [facility] LAB REF LAB BLOOD AND FL UID ORD Final Result Performing Organization Address [facility] Number [facility] [address] [place] [address] * TSH (04/29/2025 3:04 AM EDT) Thyroid Stimulating Hormone, Plasma 1.58 0.40 - 4.20 uIU/mL 04/29/2025 3:55 AM EDT [facility] Blood Venous blood specimen / Unknown Venipuncture / Unknown 04/29/2025 3:04 AM EDT 04/29/2025 3:19 AM EDT us Sy De La Fuente APRN, DENISE LAB BLOOD ORDERABLES Fin al Result Performing Organization Address [facility] Phone Number [facility] [address] [place] [address] * (ABNORMAL) Hemoglobin A1c (04/29/2025 3:04 AM [...] Adults <6.0% Children and Adolescents <7.5% Source: [place] [employer]. Standards of medical care in diabetes,2017. Diabetes Care.2017:40 (suppl 1):S1-S135. Sy De La Fuente APRN, DENISE LAB BLOOD ORDERABLES Fin al Result [facility] [address] [place] [address] * Phosphorus (04/29/2025 3:04 AM EDT) Phosphorus, Plasma 3.6 2.5 - 4.5 mg/dL 04/29/2025 3:55 AM EDT [facility] Blood Venous blood specimen / Unknown Venipuncture / Unknown 04/29/2025 3:04 AM EDT 04/29/2025 3:19 AM EDT Sy De La Fuente APRN, DNP LAB BLOOD ORDERABLES Fin al Result [facility] [address] [place] [address] * (ABNORMAL) Magnesium, Plasma (04/29/2025 3:04 AM EDT) Magnesium, Plasma 1.7(L) 1.9 - 2.4 mg/dL 04/29/2025 3:55 AM EDT [facility] Blood Venous blood specimen / Unknown Venipuncture / Unknown 04/29/2025 3:04 AM EDT 04/29/2025 3:19 AM EDT us Sy De La Fuente MANAGER CAMP, DNP LAB BLOOD ORDERABLES Fin al Result [facility] [address] [place] [address] * (ABNORMAL) Comprehensive metabolic panel (04/29/2025 3:04 [...] AM EDT us Sy De La Fuente MANAGER CAMP, DNP LAB BLOOD ORDERABLES Fin al Result [facility] [address] [place] [address] * (ABNORMAL) CBC and Differential (04/29/2025 3:04 [...] than percentages. us Sy De La Fuente MANAGER CAMP, DNP LAB BLOOD ORDERABLES Fin al Result [facility] [address] [place] [address] * (ABNORMAL) POCT glucose meter (04/28/2025 9:06 PM EDT) [facility] Signature POCT Glucose 212(H) 74 - [...] Comment 04/28/2025 9:08 PM EDT [facility]ALTH[facility] Knife Finisher ID Frankie Poole 04/28/2025 9:08 PM EDT HEALTH[facility]ARE LAB Device ID [id number] 04/28/2025 9:08 PM EDT [facility] Specimen Type POC Capillary 04/28/2025 9:08 PM EDT [facility] Blood Capillary blood specimen / Unknown 04/28/2025 9:06 PM EDT 04/28/2025 9:08 PM EDT Marjorie Myers MD LAB POINT OF CARE TE ST DOCKED DEVICE UNSOLICITED RESULTS Final Result Performing Organization Address City/[facility]/ZIP Co de Phone Number [facility]ALTHCARE LAB [address] [place] [address] * (ABNORMAL) POCT glucose meter (04/28/2025 5:34 [...] for testing. Comment 04/28/2025 5:38 PM EDT [facility] Knife Finisher ID Ailyn Finch 5:38 PM EDT HEALTHCARE LAB Device ID [id number] 04/28/2025 5:38 PM EDT [facility] Specimen Type POC Capillary 04/28/2025 5:38 PM EDT [facility] Blood Capillary blood specimen / Unknown 04/28/2025 5:34 PM EDT 04/28/2025 5:38 PM EDT Marjorie Myers MD LAB POINT OF CARE TE ST DOCKED DEVICE UNSOLICITED RESULTS Final Result Performing Organization Address City/[facility]/ZIP Co de Phone Number [facility] [address] [place] [address] * (ABNORMAL) POCT glucose meter (04/28/2025 3:51 [...] Comment 04/28/2025 3:54 PM EDT HEALTHCARE LAB Knife Finisher ID Ailyn Finch 3:54 PM EDT HEALTH[facility]ARE LAB Device ID [id number] 04/28/2025 3:54 PM EDT [facility] Specimen Type POC Capillary 04/28/2025 3:54 PM EDT [facility] Blood Capillary blood specimen / Unknown 04/28/2025 3:51 PM EDT 04/28/2025 3:54 PM EDT us Marjorie Myers MD LAB POINT OF CARE TE ST DOCKED DEVICE UNSOLICITED RESULTS Final Result Performing Organization Address City/State/[facility] Co de Phone Number HEALTHCARE LAB [address] [place] [address] * VAS Ankle Brachial Index - GABBI [...] are demonstrated at the levels of the INDUSTRIAL TWISTING MACHINE OPERATOR and DPA. Segmental pressures are within normal limits with a INDUSTRIAL TWISTING MACHINE OPERATOR GABBI of 1.1 (172 mmHg) and a DPA GABBI of 1.0 (149 mmHg). Digit pressures are of 122 mmHg. Left: Multiphasic waveforms are demonstrated at the levels of the INDUSTRIAL TWISTING MACHINE OPERATOR and DPA. Segmental pressures are within normal limits with a INDUSTRIAL TWISTING MACHINE OPERATOR GABBI of 1.1 (164 mmHg) and a DPA GABBI of 1.0 (153 mmHg). Digit pressures are of 151 mmHg. Procedure Note Chris Schaefer MD - 04/28/2025 CLINICAL INDICATION: Diabetic foot ulcer TECHNIQUE: Non-invasive, continuous wave Doppler exam with segmental pressures andspectral analysis of the lower extremity was performed. COMPARISON: None. FINDINGS: Right: Multiphasic waveforms are demonstrated at the levels of the INDUSTRIAL TWISTING MACHINE OPERATOR andDPA. Segmental pressures are within normal limits with a INDUSTRIAL TWISTING MACHINE OPERATOR GABBI of 1.1(172 mmHg) and a DPA GABBI of 1.0 (149 mmHg). Digit pressures are of 122mmHg. Left: Multiphasic waveforms are demonstrated at the levels of the INDUSTRIAL TWISTING MACHINE OPERATOR andDPA. Segmental pressures are within normal limits with a INDUSTRIAL TWISTING MACHINE OPERATOR GABBI of 1.1(164 mmHg) and a DPA [...] 4:14 PM us Sy De La Fuente MANAGER CAMP, DNP CV VASCULAR PROCEDURES F inal Result [...] and its performance characteristics determined by the [facility]. Although the media is FDA-approved, it is not FDA-approved for all specimen types submitted. The FDA has determined that such clearance or approval is not necessary. This test is used for surveillance purposes. It should not be regarded as investigational or for research. The [facility] is certified under the Clinical Laboratory Improvement Amendments of 1988 (CLIA-88) as qualified to perform high complexity clinical laboratory testing. us Sy De La Fuente APRN, DNP LAB MICROBIOLOGY - [facility] AL ORDERABLES Final Result [facility] [address] [place] [address] * (ABNORMAL) POCT glucose meter (04/28/2025 12:52 [...] Comment 04/28/2025 12:56 PM EDT [facility]ALTH[facility] Knife Finisher ID Ailyn Finch 12:56 PM EDT HEALTHCARE LAB Device ID [id number] 04/28/2025 12:56 PM EDT [facility] LAB Specimen Type POC Capillary 04/28/2025 12:56 PM EDT [facility] Blood Capillary blood specimen / Unknown 04/28/2025 12:52 PM EDT 04/28/2025 12:56 PM EDT us Marjorie Myers MD LAB POINT OF CARE TE ST DOCKED DEVICE UNSOLICITED RESULTS Final Result Performing Organization Address City/[facility]/ZIP Co de Phone Number [facility]ARE LAB [address] [place] [address] * (ABNORMAL) POCT glucose meter (04/28/2025 11:39 AM EDT) [facility] POCT Glucose 271(H) 74 - 99 [...] Comment 04/28/2025 11:44 AM EDT [facility]ALTH[facility]ARE LAB Knife Finisher ID Ailyn Finch 11:44 AM EDT HEALTHCARE LAB Device ID [id number] 04/28/2025 11:44 AM EDT [facility]ALTH[facility]ARE LAB Specimen Type POC Capillary 04/28/2025 11:44 AM EDT [facility] Blood Capillary blood specimen / Unknown 04/28/2025 11:39 AM EDT 04/28/2025 11:44 AM EDT Marjorie Myers MD LAB POINT OF CARE TE ST DOCKED DEVICE UNSOLICITED RESULTS Final Result Performing Organization Address [facility] Co de Phone Number HEALTHCARE LAB [address] [place] [address] * Lavender Top (04/28/2025 8:13 AM EDT) [facility] Extra Hold for add-ons 04/28/2025 11:01 AM EDT [facility] Comment:Auto resulted. Blood Venous blood specimen / Unknown 04/28/2025 8:13 AM EDT 04/28/2025 8:19 AM EDT us Marjorie Myers MD LAB BLOOD ORDERABLES Final Resul t Performing Organization Address City/[facility]/ZIP Co de Phone Number [facility] [address] [place] [address] * Light Green Top (04/28/2025 8:13 AM EDT) Extra Hold for add-ons 04/28/2025 11:01 AM EDT [facility] Comment:Auto resulted. Blood Venous blood specimen / Unknown 04/28/2025 8:13 AM EDT 04/28/2025 8:19 AM EDT us Marjorie Myers MD LAB BLOOD ORDERABLES Final Resul t Performing Organization Address City/[facility]/ZIP Co de Phone Number [facility] [address] [place] [address] * APTT (04/28/2025 8:13 AM EDT) Pathologist [facility] aPTT 32 25 - 35 sec 04/28/2025 8:33 AM EDT [facility] Blood Venous blood specimen / Unknown Venipuncture / Unknown 04/28/2025 8:13 AM EDT 04/28/2025 8:18 AM EDT us Sy De La Fuente MANAGER CAMP, DNP LAB BLOOD ORDERABLES Fin al Result Performing Organization Address City/[facility] Co de Phone Number [facility] [address] [place] [address] * (ABNORMAL) PT/INR (04/28/2025 8:13 AM EDT) [...] INR 2.5 to 3.5 Prevention of recurrent [place] INR 2.5 to 3.5 Sy De La Fuente APRN, DNP LAB BLOOD ORDERABLES Fin al Result Performing Organization Address [facility]/ZIP Co de Phone Number [facility] [address] [place] [address] * ECG Adult (04/28/2025 7:20 AM EDT) EKG DIAGNOSIS CLASS Abnormal MUSE ECG Ventricular Rate 90 BPM MUSE ECG Atrial Rate 90 BPM MUSE ECG MT Interval 206 ms MUSE ECG QRSD Interval 146 ms MUSE ECG QT Interval 450 ms MUSE ECG QTC Interval 550 ms MUSE ECG P Strawberry 69 degrees MUSE ECG R Strawberry -32 degrees MUSE ECG T Wave Strawberry 35 degrees MUSE ECG Diagnosis Baseline Artifact [...] ORDERABLES Final Re sult Performing Organization Address [facility] Co de Phone Number MUSE ECG * (ABNORMAL) POCT glucose meter (04/28/2025 7:17 AM EDT) POCT Glucose 199(H) 74 - 99 mg/dL 04/28/2025 7:21 AM EDT [facility] Comment:Accuracy of a glucos e result [...] 04/28/2025 7:21 AM EDT [facility] Knife Finisher ID Ailyn Finch 7:21 AM EDT HEALTHCARE LAB Device ID [id number] 04/28/2025 7:21 AM EDT HEALTHCARE LAB Specimen Type POC Capillary 04/28/2025 7:21 AM EDT [facility] Blood Capillary blood specimen / Unknown 04/28/2025 7:17 AM EDT 04/28/2025 7:21 AM EDT us Greg Lee MD LAB POINT OF CARE TE ST DOCKED DEVICE UNSOLICITED RESULTS Final Result [facility] [address] [place], [place] [id number] * CT Foot Right w IV Contrast [...] BANK TEST ORDERABLES Final Result BLOOD BANK [address] [place] [address] * Blood Culture (Aerobic/Anaerobet Set) (04/27/2025 10:16 PM EDT) Culture No growth at day 5 05/03/2025 12:01 AM EDT [facility] Blood Venous blood specimen / Unknown Venipuncture / Unknown 04/27/2025 10:16 PM EDT 04/27/2025 10:53 PM EDT us Jessa Law MD LAB MICROBIOLOGY - [facility] Final Result [facility] [address] [place] [address] * Blood Culture (Aerobic/Anaerobet Set) (04/27/2025 10:16 PM EDT) Culture No growth at day 5 05/03/2025 12:01 AM EDT [facility] Blood Venous blood specimen / Unknown Venipuncture / Unknown 04/27/2025 10:16 PM EDT 04/27/2025 10:53 PM EDT us Jessa Law MD LAB MICROBIOLOGY - GENERAL SANYA DOMINGUEZ Final Result [facility] [address] [place] [address] * (ABNORMAL) Blood gas, venous (04/27/2025 10:16 [...] ORDERABLES Final Resu lt Performing Organization Address City/[facility]/ZIP Co de Phone Number [facility] [address] [place] [address] * Creatine Kinase, Total, Plasma (04/27/2025 9:37 PM EDT) Creatine Kinase, Plasma 71 49 - 320 U/L 04/28/2025 8:36 AM EDT [facility] Blood Venous blood specimen / Unknown Venipuncture / Unknown 04/27/2025 9:37 PM EDT 04/27/2025 9:40 PM EDT us Sy De La Fuente MANAGER CAMP, DNP LAB BLOOD ORDERABLES Fin al Result Performing Organization Address City/[facility]/ZIP Co de Phone Number [facility] [address] [place] [address] * (ABNORMAL) Procalcitonin (04/27/2025 9:37 PM EDT) [...] predict 28 day mortality risk. Please consult [email or web address]-[email or web address] for more information. Test performed at [facility]. Sy De La Fuente APRN, DNP LAB BLOOD ORDERABLES Fin al Result Performing Organization Address City/[facility]/[place] [address] * (ABNORMAL) Sed rate, automated (04/27/2025 9:37 PM EDT) Sedimentation Rate >111(H) <15 mm/hr 2024 11:10 PM EDT [facility] Blood Venous blood specimen / Unknown Venipuncture / Unknown 04/27/2025 9:37 PM EDT 04/27/2025 9:40 PM EDT Jessa Law MD LAB BLOOD ORDERABLES Final Resu lt Performing Organization Address [facility] Co de Phone Number [facility] [address] [place] [address] * (ABNORMAL) Magnesium (04/27/2025 9:37 PM EDT) Magnesium, Plasma 1.2(L) 1.9 - 2.4 mg/dL 04/27/2025 10:11 PM EDT [facility] Blood Venous blood specimen / Unknown Venipuncture / Unknown 04/27/2025 9:37 PM EDT 04/27/2025 9:40 PM EDT Jessa Law MD LAB BLOOD ORDERABLES Final Resu lt Performing Organization Address City/[facility]/ZIP Co de Phone Number [facility] [address] [place] [address] * Beta-Hydroxybutyric Acid (04/27/2025 9:37 PM EDT) Pathologist [facility] Beta-Hydroxybut yric Acid, Plasma 0.23 <=0.27 mmol/L 04/27/2025 10:56 PM EDT [facility] Blood Venous blood specimen / Unknown Venipuncture / Unknown 04/27/2025 9:37 PM EDT 04/27/2025 9:40 PM EDT us Jessa Law MD LAB BLOOD ORDERABLES Final Resu lt Performing Organization Address [facility] Co de Phone Number [facility] [address] [place] [address] * ED HIV 1/2 Antibody/Antigen Screen w/Reflex to HIV 1/2 Differentiation (04/27/2025 9:37 PM EDT) [facility] HIV 1 & 2 Antibody/Antigen Screen [...] ORDERABLES Final Res ult Performing Organization Address City/[facility]/ZIP Co de Phone Number [facility] [address] [place] [address] * Hepatitis C Antibody - ED (04/27/2025 9:37 PM EDT) [facility] Hepatitis C Antibody Negative Negative 04/27/2025 10:41 PM EDT [facility] Blood Venous blood specimen / Unknown Venipuncture / Unknown 04/27/2025 9:37 PM EDT 04/27/2025 10:00 PM EDT us Madhu Ritchie MD LAB BLOOD ORDERABLES Final Res ult Performing Organization Address City/[facility]/ZIP Co de Phone Number [facility] [address] [place] [address] * (ABNORMAL) C-reactive protein (04/27/2025 9:37 PM [...] ORDERABLES Final Res ult Performing Organization Address [facility]/ZIP Co de Phone Number [facility] [address] [place] [address] * (ABNORMAL) CBC w/diff (04/27/2025 9:37 PM [...] Res ult [facility] [address] [place] [address] * (ABNORMAL) BMP (04/27/2025 9:37 PM EDT) [...] Res ult [facility] [address] [place] [address] documented in this encounter Visit Diagnoses Diagnosis Other chronic osteomyelitis of right foot ([facility]) Diabetic foot ulcer with osteomyelitis Type [...] sleeve procedure Type 2 diabetes Morbid obesity ([facility]) Morbid obesity Diabetic foot ulcer with osteomyelitis Type II or unspecified type diabetes mellitus with other specified manifestations, not stated as uncontrolled Pyogenic inflammation of bone Unspecified osteomyelitis, site unspecified Other chronic osteomyelitis of right foot ([facility]) documented in this encounter Admitting Diagnoses Diagnosis [...] 5 mg, Oral, Daily, First dose on [facility] 05/06/25 at 1245, Until Discontinued, Routine Given 05/18/2025 9:06 AM EST 5 mg Given 05/17/2025 9:01 AM EST 5 mg Given 05/16/2025 8:56 AM EST 5 mg fluticasone (Flonase) nasal spray 2 spray 2 spray, Each Nostril, Daily, First dose on [facility] 05/06/25 at 1245, Until Discontinued, Routine [...] units/mL, First dose (after last reorder) on [place] 05/14/25 at 1800 Given 05/17/2025 5:32 PM [...] 5:00 PM EST 20 mg sodium chloride (Gibson) 0.65 % nasal spray 1 spray 1 [...] - Provider: Kylee Gonzalez RN - Comment: [facility]) perflutren lipid microspheres (Definity) injection [...] - Provider: Kylee Gonzalez RN) sodium chloride (Gibson) 0.65 % nasal spray 1 spray 1 [...] documented as of this encounter Care Teams Transportation Supervisor Relationship Specialty Start Date End Date Malcolm Hayward APRN [address] [place] [id number] PCP - General 09/21/23 documented as of this encounter
--- OUTSIDE RECORDS SUMMARY | 2025-06-22 13:40 | XMS_ITS | Encounter Summary ---
Author Organization [facility] Address [address] [id number] Care Team Providers Care Croze Cutter Helper Name Role Phone Mainor Malcolm Rodrick DIANA Primary Care Provider [phone] Reason for Visit * Reason Comments Post-op * Consultation (Routine) - Closed Specialty Diagnoses / Procedures Referred By Contact Referred To Contact Vascular Surgery / [facility] Diagnoses Diabetic foot ulcer with osteomyelitis Diane Guzman MD [address] [place] [address] Phone: tel:[phone] fax:[phone] [facility] [address] [place] [address] Phone: tel: fax: Referral ID Status Reason Start Date Expiration Date V isits Requested Visits Authorized [id number] Closed Specialty Services Required 05/03/2025 11/02/2026 1 1 Encounter Details Date Type Department Care Team (Latest Contact Info) Description 06/22/2025 1:40 PM EST Office Visit [facility] [address] [place] [address] Mary Vicente MD [address] [facility] [address] [place] [address] QUINN (obstructive sleep apnea) (Primary [...] time in the past 12 m [facility], were you homeless or living in a alf (including now)? No 04/28/2025 [facility] Utilities Answer Date Recorded In the past 12 months has th e [employer], gas, oil, or water [email or web address] threatened to shut off services in your [...] Park RN - 06/22/2025 1:[address] [facility] Physician Orders/Patient Instructions Should you notice [...] are demonstrated at the levels of the PLUCK SEPARATOR and DPA. Segmental pressuresare within normal limits with a PLUCK SEPARATOR GABBI of 1.1 (172 mmHg) and a DPA GABBI of 1.0 (149 mmHg). Digit pressures are of 122 mmHg. Left: Multiphasic waveforms are demonstrated at the levels of the PLUCK SEPARATOR and DPA. Segmental pressures are within normal limits with a PLUCK SEPARATOR GABBI of 1.1 (164 mmHg) and a [...] 05/19/2024 Atrial fibrillation with rapid ventricular response ([facility]/HCC) 05/19/2024 Primary osteoarthritis of knees, bilateral 05/19/2024 Recurrent major depression resistant to treatment ([facility]/HCC) 05/19/2024 S/P gastric sleeve procedure 05/19/2024 Diabetic foot ulcer 05/19/2024 Smoker unmotivated to quit 05/19/2024 Tachycardia 05/19/2024 Neuropathy 09/30/2021 Other hyperlipidemia 12/21/2020 Type 2 diabetes 12/21/2020 Lower back pain 04/22/2019 Hypertension 02/18/2019 Edema 02/18/2019 Uncontrolled type 2 diabetes mellitus with hyperglycemia, with long-term current use of insulin 06/14/2018 Microalbuminuria 04/09/2018 Morbid obesity ([facility]/HCC) 12/24/2016 Allergic rhinitis 12/24/2016 QUINN (obstructive sleep [...] Problem List Items Addressed This Visit Respiratory UQINN (obstructive sleep apnea) - Primary COPD (chronic [...] Description 08/03/2025 2:00 PM EST Office Visit [facility] [address] [facility] 5th Floor [address] [place] [address] Mary Vicente MD [address] [facility] [address] [place] [address] (work) documented as of this encounter Procedures Procedure Name Priority Date/Time Associated Diagnosis Comments [facility] ORDER Routine 06/22/2025 2:05 PM EST documented in this encounter Results * DME Order (06/22/2025 2:05 PM EST) [facility] SUPPLIER NAME [facility] (Wound Care) [facility] DME [facility] SUPPLIER PHONE [facility] DME [facility] [place] DELIVERY STAT[facility] Delivery Successful [facility] [place] DME [facility] DELIVERY NOTE [facility] DME [facility] REQUESTED DELIVERY DATE 06/22/2025 [facility] D[facility] ACTUAL DELIVERY DATE 06/22/2025 [facility] DME [facility] ITEM DESCRIPTION Adaptic Petrolatum Emulsion Non-Adherent Dressing, 3 x 8 in., Box (24) [facility] Comment: Qty: 1 Substitution Status: In the event of product backorder, discontinuation, or patient preference, substitutions are permitted for wound care products on this order. [facility] ITEM DESCRIPTION MediChoice Sterile Abdominal Pads, 5 x 9 in., Box (36) [facility] Comment: Qty: 1 Substitution Status: In the event of product backorder, discontinuation, or patient preference, substitutions are permitted for wound care products on this order. [facility] ITEM DESCRIPTION [employer] Fluff Gauze Bandage Roll, Sterile, 6-ply, 4.5 in. x 4.1 yd., Each (1) [facility] DME Comment: Qty: 30 Substitution Status: In the event of product backorder, discontinuation, or patient preference, substitutions are permitted for wound care products on this order. [facility] ITEM DESCRIPTION Jose-Band LF Latex Free Elastic Bandage with Hook and Loop Closure, Wound Care Treatment, NS, 3 in. x 5 yd., Box (10) [facility] DME Comment: Qty: 2 Substitution Status: [...] response (CMS/HCC) Tachycardia Unspecified tachycardia Morbid obesity ([facility]) Morbid obesity Uncontrolled type 2 diabetes mellitus with hyperglycemia, with long-term current use of insulin Type 2 diabetes mellitus with diabetic peripheral angiopathy without gangrene, with long-term current use of insulin Tobacco abuse counseling S/P gastric sleeve procedure Recurrent major depression resistant to treatment ([facility]) Smoker unmotivated to quit documented in this encounter Additional Health Concerns Assessment Noted Time PHQ-9 Depression Total Score: 0 09/14/19 25 2:29 PM EST A fall risk assessment has been complete d for the patient 09/13/2024 2:29 PM EST A Body Mass Index follow-up plan has been documented for the patient 06/22/2025 2:05 PM EST documented as of this encounter Care Teams Croze Cutter Helper Relationship Specialty Start Date End Date Malcolm Hayward APRN [address] [place] [address] PCP - General 09/21/23 documented as of this encounter
--- OUTSIDE RECORDS SUMMARY | 2025-06-28 19:24 | XMS_ITS | Clinical Summary ---
Author Organization [employer] ([place], [place], [place], [place], [place]) Address [address] [place] [address] Care Team Providers Care Documentation Coordinator Name Role Phone Malcolm Hayward APRN Primary Care Provider [phone] Allergies No known active allergies Medications atorvastatin [...] 04/26/2020, 12/24/2016 Insurance MEDICARE PART A B /[facility] Care Teams Documentation Coordinator Relationship Specialty Start Date End Date Malcolm Hayward APRN [address] [id number] PCP - General Nurse Practitioner 12/20/24
--- OUTSIDE RECORDS SUMMARY | 2025-06-28 19:24 | XMS_ITS | Encounter Summary ---
Author Organization [facility] Address [address] [id number] Care Team Providers Care Double Needle Stitcher Name Role Phone Malcolm Hayward ADALGISA Primary Care Provider [phone] Encounter Details Date Type Department Care Team (Late st Contact Info) Description 06/12/2025 Telephone [facility] [address] [facility] 5th Floor [address] [place] [address] Mary Vicente MD [address] [facility] [address] [place] [address] Social History Tobacco Use Types [...] any time in the past 12 m [facility], were you homeless or living in a long term (including now)? No 04/28/2025 [facility] Utilities Answer Date Recorded In the [...] Clinical Concern/Question Reason for Call: Dolly feliciano [facility] would like to speak to a nurse about patient's weight bearing status. Thank you! Has questions about a special shoe patient could use. Best contact number: Other: [phone] Optimal time of day to reach caller: [...] Description 08/03/2025 2:00 PM EST Office Visit [facility] [address] [facility] 5th Floor [address] [place] [address] Mary Vicente MD [address] [facility] [address] [place] [address] documented as of this encounter [...] documented as of this encounter Care Teams Double Needle Stitcher Relationship Specialty Start Date End Date Malcolm Hayward APRN [address] [place], [place] [id number] PCP - General 09/21/23 documented as of this encounter
--- OUTSIDE RECORDS SUMMARY | 2025-06-28 19:24 | XMS_ITS | Encounter Summary ---
Author Organization [facility] Address [address] [place] [address] Care Team Providers Care Glued Wood Tester Name Role Phone Malcolm Hayward ADALGISA Primary Care Provider [phone] Encounter Details Date Type Department Care Team (Late st Contact Info) Description 06/13/2025 Telephone Vascular Surgery [address] [place] [address] Rohith Ramires, FLOW MACHINE OPERATOR None Social History Tobacco Use Types Packs/Day [...] in a prison (including now)? No 04/28/2025 [facility] Utilities Answer Date Recorded In the past 12 months has th e [employer], gas, oil, or water company threatened [...] boot at home. Patient has seen a assistant manager quality management after discharge for wound culturing and it came back positive, patient had asked for IV ABX, but SGR team cannot write for ABX from someone elses cultures. Strawhat Blocking Operator should manage that, but does not want to because of recent surgery. Clinic staff has recommended multiple times via epic chat in mychart and phone calls to go to the ED if assistant manager quality management unable/unwilling totreat. Has yet to go, and [...] Description 08/03/2025 2:00 PM EST Office Visit [facility] [address] [facility] 5th Floor Wing [address], [address] [place] [address] Mary Vicente MD [address] [facility] [address] [place] [address] documented as of this encounter [...] documented as of this encounter Care Teams Glued Wood Tester Relationship Specialty Start Date End Date Malcolm Hayward APRN [address] [place] [address] PCP - General 09/21/23 documented as of this encounter
--- OUTSIDE RECORDS SUMMARY | 2025-06-28 19:24 | XMS_ITS | Referral Summary ---
Author Organization [facility] ([place], [place], [place], [place], [place]) Address [address] [place] [address] Care Team Providers Care Duty Engineer Name Role Phone Malcolm Hayward APRN Primary Care Provider [phone] Allergies No known active allergies Medications atorvastatin [...] A B BLUE CROSS/BLUE SHIELD Care Teams Duty Engineer Relationship Specialty Start Date End Date Malcolm Hayward, ADALGISA [address] [place] [address] PCP - General Nurse Practitioner 12/20/24
--- OUTSIDE RECORDS SUMMARY | 2025-06-28 19:26 | XMS_ITS | Encounter Summary ---
Author Organization [facility] Address [address] [id number] Care Team Providers Care Leaf Conditioner Name Role Phone Malcolm Hayward APRN Primary Care Provider [phone] Encounter Details Date Type Department Care Team (Latest Contact Info) Description 06/22/2025 Travel Social History Tobacco Use Types Packs/Day [...] in a alf (including now)? No 04/28/2025 [facility] Utilities Answer Date Recorded In the [...] Description 08/03/2025 2:00 PM EST Office Visit [facility] [address] [facility] 5th Floor Wing D, [address] [place] [address] Mary Vicente MD [address] [facility] [address] [place] [address] documented as of this encounter Visit Diagnoses [...] documented as of this encounter Care Teams Leaf Conditioner Relationship Specialty Start Date End Date Malcolm Hayward APRN [address] [place] [address] [place] [address] PCP - General 09/21/23 documented as of this encounter
--- OUTSIDE RECORDS SUMMARY | 2025-06-28 19:26 | XMS_ITS | Clinical Summary ---
Author Organization [facility] Address [address] [place] [address] Care Team Providers Care Blasting Cap Assembler Name Role Phone Provider, No Known Primary [...] C SCREENING Completed 04/27/2025 Insurance Care Teams Blasting Cap Assembler Relationship Specialty Start Date End Date Provider, No Known [facility] [place] [address] PCP - General 02/11/21
--- OUTSIDE RECORDS SUMMARY | 2025-06-28 19:26 | XMS_ITS | Encounter Summary ---
Author Organization [facility] Address [address] [id number] Care Team Providers Care Groutman Name Role Phone Malcolm Hayward APRN Primary Care Provider [phone] Encounter Details Date Type Department Care Team (Latest Contact Info) Description 06/16/2025 Travel Social History Tobacco Use Types Packs/Day [...] time in the past 12 m [facility], were you homeless or living in a detention (including now)? No 04/28/2025 [facility] Utilities Answer Date Recorded In the [...] [place] [facility] [address] [facility] 5th Floor Wing D, [address] [place] [address] Mary Vicente MD [address] [facility] [address] [place] [address] documented as of this encounter Visit Diagnoses [...] documented as of this encounter Care Teams Groutman Relationship Specialty Start Date End Date Malcolm Hayward, ADALGISA [address] [place] [address] [place] [address] PCP - General 09/21/23 documented as of this encounter
--- OUTSIDE RECORDS SUMMARY | 2025-06-28 19:26 | XMS_ITS | Encounter Summary ---
Author Organization Healthcare Address [address] [id number] Care Team Providers Care Master At Arms Name Role Phone Malcolm Hayward MATERIAL DAMAGE APPRAISER Primary Care Provider [phone] Reason for Visit * Reason Comments Med Refill Encounter Details Date Type Department Care Team (Late st Contact Info) Description 12/31/2023 Refill [facility] [address] [place] [address] Earline Loaiza, MATERIAL DAMAGE APPRAISER [address] [facility] [address] [place] [address] Type 2 diabetes mellitus (CMS/HCC) [...] Description 08/03/2025 2:00 PM EST Office Visit [place] [facility] [address] 5th Floor Wing D, [address] [place] [address] Mary Vicente MD [address] [facility] [address] [place] [address] documented as of this encounter [...] documented as of this encounter Care Teams Master At Arms Relationship Specialty Start Date End Date Malcolm Hayward APRN [address] [place] [address] PCP - General 09/21/23 documented as of this encounter
--- OUTSIDE RECORDS SUMMARY | 2025-06-28 19:26 | XMS_ITS | Encounter Summary ---
Author Organization [facility] Address [address] [id number] Care Team Providers Care Copy Chaser Name Role Phone Malcolm Hayward LABORER BEAM HOUSE Primary Care Provider [phone] [phone] Reason for Visit * Reason Comments Med Refill Encounter Details Date Type Department Care Team (Late st Contact Info) Description 07/07/2024 Refill [facility] [address] [place] [address] Mayra Torres PA [address] [address] Type 2 diabetes mellitus (CMS/HCC) [...] Description 08/03/2025 2:00 PM EST Office Visit [facility] [address] [facility] 5th Floor Wing D, [address] [place] [address] Mary Vicente MD [address] [facility] [address] [place] [address] documented as of this encounter [...] documented as of this encounter Care Teams Copy Chaser Relationship Specialty Start Date End Date Malcolm Hayward APRN [address] [place] [address] PCP - General 09/21/23 documented as of this encounter
--- OUTSIDE RECORDS SUMMARY | 2025-06-28 19:27 | XMS_ITS | Encounter Summary ---
Author Organization Healthcare Address [address] [id number] Care Team Providers Care Sheet Rock Sander Name Role Phone Malcolm Hayward ADALGISA Primary Care Provider [phone] Reason for Visit * Reason Onset Date Comments HCN Clinical Concern/Question 06/12/2025 Encounter Details Date Type Department Care Team (Late st Contact Info) Description 06/12/2025 Telephone [place] [facility] [address] [facility] 5th Floor Wing [address], [address] [place] [address] Mary Vicente MD [address] [facility] [address] [place] [address] HCN Clinical Concern/Question Social History [...] in a retirement (including now)? No 04/28/2025 [facility] Utilities [...] about it , labreport Best contact number: [phone] (mobile) Optimal time of day to reach [...] Description 08/03/2025 2:00 PM EST Office Visit [facility] [address] [facility] 5th Floor Wing [address], [address] [place] [address] Mary Vicente MD [address] [facility] [address] [place] [address] documented as of this encounter [...] documented as of this encounter Care Teams Sheet Rock Sander Relationship Specialty Start Date End Date Malcolm Hayward APRN [address] [place] [address] PCP - General 09/21/23 documented as of this encounter
--- OUTSIDE RECORDS SUMMARY | 2025-06-28 19:29 | XMS_ITS | Encounter Summary ---
Author Organization [facility] Address [address] [place] [address] Care Team Providers Care Pipe Line Maintenance Supervisor Name Role Phone Malcolm Hayward ADALGISA Primary Care Provider [phone] Encounter Details Date Type Department Care Team (Late st Contact Info) Description 05/24/2025 Telephone Vascular Surgery [address] [place] [address] Rohith Ramires, PASTRY COOK APPRENTICE None Social History Tobacco Use Types Packs/Day [...] in a alf (including now)? No 04/28/2025 [facility] Utilities Answer Date Recorded In the past [...] [place] [facility] [address] [facility] 5th Floor Wing D, [address] [place] [address] Mary Vicente MD [address] [facility] [address] [place] [address] documented as of this [...] as of this encounter Care Teams Pipe Line Maintenance Supervisor Relationship Specialty Start Date End Date Malcolm Hayward APRN [address] [place] [address] PCP - General 09/21/23 documented as of this encounter
--- OUTSIDE RECORDS SUMMARY | 2025-06-28 19:29 | XMS_ITS | Encounter Summary ---
Author Organization Healthcare Address [address] [place] [address] Care Team Providers Care Steam And Power Supervisor Name Role Phone Malcolm Hayward ADALGISA Primary Care Provider [phone] [phone] Encounter Details Date Type Department Care Team ([facility] st Contact Info) Description 05/01/2025 Orders Only External Location [address] [place] [address] Provider, External Social History Tobacco Use Types [...] in a assisted (including now)? No 04/28/2025 [facility] Utilities Answer Date Recorded In the [...] * Question Answer Date of Assessment Author Fernandez Environmental surveillance 05/05/2025 8:0 0 AM EDT Nitza Mishra RN * Calculated C-SSRS Risk Score (Lifetime/Recent) Answer Date of Assessment Author No Risk Indicated 05/05/2025 8:00 AM EDT Nitza Gonzalez RN * Question Answer Date of Assessment Author 1. Wish to be (Past 1 Month) No 025 8:00 AM LOGANT Nitza Mishra, LOLA 2. Non-Specific Active Suici jonny Thoughts (Past 1 Month) No 05/05/2025 8:00 AM EDT Manuel Mishra, LOLA 6. Suicidal Behavior (Lifetime) No 8:00 AM LOGANT Nitza Mishra, LOLA documented as of this encounter Mental Status * Question Answer Entry Date Author Jim Environmental surveillance 05/05/2025 8:0 0 AM EDT Nitza Mishra RN documented in this encounter Plan of Treatment Upcoming Encounters Date Type Department Care Team (Late st Contact Info) Description 08/03/2025 2:00 PM EST Office Visit [place] [facility] [address] 5th Floor [address], [address] [place] [address] Mary Vicente MD [address] [facility] [address] [place] [address] documented as of this encounter [...] documented as of this encounter Care Teams Steam And Power Supervisor Relationship Specialty Start Date End Date Malcolm Hayward APRN [address] [place] [address] PCP - General 09/21/23 documented as of this encounter
--- OUTSIDE RECORDS SUMMARY | 2025-06-28 19:29 | XMS_ITS | Encounter Summary ---
Author Organization Healthcare Address [address] [id number] Care Team Providers Care Swimming Pool Servicer Name Role Phone Malcolm Hayward ADALGISA Primary Care Provider [phone] [phone] Encounter Details Date Type Department Care Team (Late st Contact Info) Description 05/26/2025 Telephone Wound Care [address] [place] [address] Sheila Marcano, BLAS [address] [place] [address] Social History Tobacco Use Types [...] longterm (including now)? No 04/28/2025 [facility] Utilities Answer Date Recorded In the [...] a culture done of his wound at [facility] and it came back positive for pseudomonas aeruginosa. She said [facility] said oral abx are not going to work, so she is wondering what she needs to do? Get in touch w/ ID, bring him to ED to be admittedfor IV abx? Asking for a call back. Thanks! Best contact number: Other: [phone] Optimal time of day to reach caller: [...] 2:00 PM EST Office [facility] [address] [facility] 5th Floor Wing [address], [address] [place] [address] Mary Vicente MD [address] [facility] [address] [place] [address] documented as of this encounter [...] documented as of this encounter Care Teams Swimming Pool Servicer Relationship Specialty Start Date End Date Malcolm Hayward APRN [address] [place] [address] PCP - General 09/21/23 documented as of this encounter
--- OUTSIDE RECORDS SUMMARY | 2025-06-28 19:29 | XMS_ITS | Encounter Summary ---
Author Organization Healthcare Address [address] [id number] Care Team Providers Care Sand Plant Attendant Name Role Phone Malcolm Hayward ADALGISA Primary Care Provider [phone] Encounter Details Date Type Department Care Team ([facility] st Contact Info) Description 05/29/2025 Telephone [facility] [address] [place] [address] Pcp, No [address] [place] [address] Social History Tobacco Use Types Packs/Day Years [...] any time in the past 12 m [facility], were you homeless or living in a assisted (including now)? No 04/28/2025 [facility] Utilities Answer Date Recorded In the [...] Please call with updates Best contact number: [phone] (mobile) Optimal time of day to reach caller: ANYTIME Additional comments/information from caller: None Note: Please do not reply to this message. Follow-up communication and further actions as a result of this message need to be communicated with the patient directly, if the patient is not active onMyChart. If the patient is active on MyChart, they will receive notification of the communication/outcome via [employer]. documented in this encounter Plan of Treatment Upcoming Encounters Date Type Department Care Team (Late st Contact Info) Description 08/03/2025 2:00 PM EST Office [facility] [address] 5th Floor [address] [place] [address] Mary Vicente MD [address] [facility] [address] [place] [address] documented as of this [...] as of this encounter Care Teams Sand Plant Attendant Relationship Specialty Start Date End Date Malcolm Hayward APRN [address] [place] [address] PCP - General 09/21/23 documented as of this encounter
--- OUTSIDE RECORDS SUMMARY | 2025-06-28 19:29 | XMS_ITS | Encounter Summary ---
Author Organization [facility] Address [address] [id number] Care Team Providers Care Institutional Research Coordinator Name Role Phone Malcolm Hayward APRN Primary Care Provider +07-20 [phone] Encounter Details Date Type Department Care Team [...] a long term (including now)? No 04/28/2025 [facility] Utilities Answer Date Recorded [...] Date of Assessment Author Fernandez Environmental surveillance 05/18/2025 8:0 0 AM Kylee [...] Status * Question Answer Entry Date Author Fernandez Environmental surveillance 05/18/2025 8:0 0 AM Kylee Ravi RN documented in this encounter Plan of Treatment Upcoming Encounters Date Type Department Care Team (Late st Contact Info) Description 08/03/2025 2:00 PM EST Office Visit [place] [facility] [address] 5th Floor [address] [place] [address] Mary Vicente MD [address] [facility] [address] [place] [address] documented as of this encounter [...] documented as of this encounter Care Teams Institutional Research Coordinator Relationship Specialty Start Date End Date Malcolm Hayward APRN [address] [place] [address] PCP - General 09/21/23 documented as of this encounter
--- OUTSIDE RECORDS SUMMARY | 2025-06-28 19:29 | XMS_ITS | Encounter Summary ---
Author Organization [facility] Address [address] [id number] Care Team Providers Care Logger Name Role Phone Malcolm Hayward APRN Primary Care Provider +07-20 [phone] Encounter Details Date Type Department Care Team [...] time in the past 12 m [facility], were you homeless or living in a halfway (including now)? No 04/28/[address] [facility] Utilities Answer Date Recorded In the [...] Date of Assessment Author Fernandez Environmental surveillance 05/17/2025 8:0 0 PM Ivan Atwood RN * Calculated C-SSRS Risk Score (Lifetime/Recent) Answer Date of Assessment Author No Risk Indicated 05/17/2025 8:00 AM Deepthi Galeano RN * Question Answer Date of Assessment Author 1. Wish to be (Past 1 Month) No 025 8:00 AM Deepthi Galeano, LOLA 2. Non-Specific Active Suici jonny Thoughts (Past 1 Month) No 05/17/2025 8:00 AM Deepthi Galeano, LOLA 6. Suicidal Behavior (Lifetime) No 8:00 AM Deepthi Galeano RN documented as of this encounter Mental Status * Question Answer Entry Date Author Fernandez Environmental surveillance 05/17/2025 8:0 0 PM Ivan Atwood RN documented in this encounter Plan of Treatment Upcoming Encounters Date Type Department Care Team (Late st Contact Info) Description 08/03/2025 2:00 PM EST Office Visit [place] [facility] [address] [facility] 5th Floor Wing [address], [address] [place] [address] Mary Vicente MD [address] [facility] [address] [place] [address] documented as of this encounter [...] documented as of this encounter Care Teams Logger Relationship Specialty Start Date End Date Malcolm Hayward APRN [address] [place] [address] PCP - General 09/21/23 documented as of this encounter
--- OUTSIDE RECORDS SUMMARY | 2025-06-28 19:29 | XMS_ITS | Encounter Summary ---
Author Organization [facility] Address [address] [id number] Care Team Providers Care Broadcast Maintenance Engineer Name Role Phone Malcolm Hayward APRN Primary Care Provider +07-20 [phone] Encounter Details Date Type Department Care Team [...] time in the past [address] [facility], were you homeless or living in a chcf (including now)? No 04/28/2025 [facility] Utilities Answer Date Recorded In [...] * Question Answer Date of Assessment Author Jim Fall risk;[facility] surveillance 05/01/2025 10:01 PM EDT Aime Gill RN * Calculated C-SSRS Risk Score (Lifetime/Recent) Answer Date of Assessment Author No Risk Indicated 05/01/2025 8:01 PM EDT Aime Gill RN * Question Answer Date of Assessment Author 1. Wish to be (Past 1 Month) No 025 8:01 PM Aime Kelly, RN 2. Non-Specific Active Suici jonny Thoughts (Past 1 Month) No 05/01/2025 8:01 PM Teena Kelly, LOLA 6. Suicidal Behavior (Lifetime) No 8:01 PM EDT Aime Gill, RN documented as of this encounter Mental Status * Question Answer Entry Date Author Precautions Fall risk;[facility] surveillance 05/01/2025 10:01 PM Aime Kelly RN documented in this encounter Plan of Treatment Upcoming Encounters Date Type Department Care Team (Late st Contact Info) Description 08/03/2025 2:00 PM EST Office Visit [place] [facility] [address] 5th [address] [place] [address] Mary Vicente MD [address] [facility] [address] [place] [address] documented as of this encounter [...] documented as of this encounter Care Teams Broadcast Maintenance Engineer Relationship Specialty Start Date End Date Malcolm Hayward APRN [address] [place] [address] PCP - General 09/21/23 documented as of this encounter
--- OUTSIDE RECORDS SUMMARY | 2025-06-28 19:29 | XMS_ITS | Encounter Summary ---
Author Organization [facility] Address [address] [id number] Care Team Providers Care Service Tech Name Role Phone Malcolm Hayward APRN Primary Care Provider +07-20 [phone] Encounter Details Date Type Department Care Team [...] any time in the past 12 m [facility], were you homeless or living in a senior living (including now)? No 04/28/2025 [facility] Utilities Answer Date Recorded [...] Description 08/03/2025 2:00 PM EST Office Visit [place] [facility] [address] [facility] 5th Floor [address] [place] [address] Mary Vicente MD [address] [facility] [address] [place] [address] documented as of this encounter Visit Diagnoses [...] as of this encounter Care Teams Service Tech Relationship Specialty Start Date End Date Malcolm Hayward, ADALGISA [address] [place] [address] [place] [address] PCP - General 09/21/23 documented as of this encounter
--- OUTSIDE RECORDS SUMMARY | 2025-06-28 19:29 | XMS_ITS | Encounter Summary ---
Author Organization Healthcare Address [address] [id number] Care Team Providers Care Needle Molder Name Role Phone Malcolm Hayward ADALGISA Primary Care Provider +07-20 [phone] Reason for Visit * Reason Onset Date Comments HCN Clinical Concern/Question 05/19/2025 HCN Status Update Call #1 05/19/2025 Encounter Details Date Type Department Care Team (Late st Contact Info) Description 05/19/2025 Telephone [place] [facility] [address] [facility] 5th Floor Wing [address] [place] [address] Sheila Marcano, BLAS [address] [facility] [address] [place] [address] HCN Clinical Concern/Question; HCN Status [...] any time in the past 12 m [facility], were you homeless or living in a fci (including now)? No 04/28/2025 [facility] Utilities Answer Date Recorded In [...] offloading shoe no longer needed per pt's bisque kiln drawer. Praveen denied any other needs or concerns. [...] the initial request. Best contact number: Other: [phone] Optimal time of day to reach caller: [...] will receive notification of the communication/outcome via [employer]. * Telephone Encounter - Diane Daniels - 05/19/2025 2:11 PM EST Clinical Concern/Question Reason for Call: Praveen from [facility] is calling to see if the patient could get a off loading boot so he could be moved to their facility or if he has to wait until his next carlos a with the clinic on 05/30/25. Please call praveen back with info. Thank you Best contact number: Other: [phone] Optimal time of day to reach caller: [...] Description 08/03/2025 2:00 PM EST Office Visit [place] [facility] [address] 5th [address] [place] [address] Mary iVcente MD [address] [facility] [address] [place] [address] documented as of this encounter [...] documented as of this encounter Care Teams Needle Molder Relationship Specialty Start Date End Date Malcolm Hayward APRN [address] [place] [address] PCP - General 09/21/23 documented as of this encounter
--- OUTSIDE RECORDS SUMMARY | 2025-06-28 19:29 | XMS_ITS | Encounter Summary ---
Author Organization Healthcare Address [address] [id number] Care Team Providers Care Director Biostatistics Name Role Phone Malcolm Hayward ADALGISA Primary Care Provider [phone] Reason for Visit * Reason Onset Date Comments HCN - Patient Message 05/24/2025 Call pankaj morrissey HCN Status Update Call #2 05/24/2025 Encounter Details Date Type Department Care Team ([place] st Contact Info) Description 05/24/2025 [facility]phone [facility] [address] [facility] [address] [place] [address] Sheila Marcano, PA [address] [facility] [address] [place] [address] HCN - Patient Message (Call [...] in a long-term (including now)? No 04/28/2025 [facility] Utilities Answer Date Recorded In [...] of the initial request. Best contact number: [phone] Optimal time of day to reach caller: [...] optimal time of day to reach caller: [phone] Note: Please do not reply to this [...] Description 08/03/2025 2:00 PM EST Office Visit [facility] [address] [place] [address] Mary Vicente MD [address] [facility] [address] [place] [address] documented as of this encounter [...] as of this encounter Care Teams Director Biostatistics Relationship Specialty Start Date End Date Malcolm Hayward APRN [address] [place] [id number] PCP - General 09/21/23 documented as of this encounter
--- OUTSIDE RECORDS SUMMARY | 2025-06-28 19:30 | XMS_ITS | Encounter Summary ---
Author Organization [facility] Address [address] [id number] Care Team Providers Care Commercial Loan Processor Name Role Phone Malcolm Hayward BUSINESS SPECIALIST Primary Care Provider [phone] Reason for Visit * Reason Comments Med Refill Encounter Details Date Type Department Care Team (Late st Contact Info) Description 12/02/[address] [facility] Endocrinology [address] [place] [address] Divine Archer, BUSINESS SPECIALIST [address] [facility] [address] [place] [address] Social History Tobacco Use Types [...] Description 08/03/2025 2:00 PM EST Office Visit [facility] [address] [facility] 5th Floor [address] [place] [address] Mary Vicente MD [address] [facility] [address] [place] [address] documented as of this encounter [...] documented as of this encounter Care Teams Commercial Loan Processor Relationship Specialty Start Date End Date Malcolm Hayward APRN [address] [place] [address] PCP - General 09/21/23 documented as of this encounter
--- OUTSIDE RECORDS SUMMARY | 2025-06-28 19:30 | XMS_ITS | Clinical Summary ---
Author Organization [facility] Address [address] [place] [address] Care Team Providers Care Underwriting Support Manager Name Role Phone Malcolm Hayward APRN Primary Care Provider Allergies Active Allergy Reactions Criticality Noted Date Comments Clindamycin Nausea Low 04/06/2025 Doxycycline Nausea Low 04/06/2025 Vancomycin Other - please docum ent in the comment field Low 04/27/2025 Red man syndrome Medications atorvastatin (Lipitor) 40 MG tablet Take 1 tablet by mouth nightly. 05/10/20 18 Active omeprazole (PriLOSEC) [address] capsule Take 1 capsule by mouth 2 times a day. 11/04/19 17 Active rivaroxaban (Xarelto) 20 MG tablet Take 1 tablet by mouth daily. 12/16/19 20 Active venlafaxine XR (Effoxor-XR) 150 MG 24 hr capsule Take 1 capsule by mouth daily. 05/10/20 18 Active bisoprolol (Zebeta) 5 MG tablet Take 1 tablet by mouth 2 times a day. 01/18/20 21 Active spironolactone (Aldactone) 50 MG tablet Take 2 tablets by mouth daily. 09/09/19 21 Active cariprazine (Vraylar) 3 MG capsule Take [...] symptoms continue 1 each 12/18/19 25 Active Ostomy Supplies (stomahesive) powder powderIndications: Dermatitis associated with moisture Apply 1 Application topically as needed (as needed). May apply powder over washed areas, and on top of protectant cream. May be mixed together for application. 28.3 g 3 01/11/20 25 Active Insulin Pen Needle (Pen Howe) 31G X 5 MM [facility] USE TO INJECT INSULIN 3 TIMES PER DAY 100 each 1 02/28/20 25 Active Ozempic, 0.25 or 0.5 MG/DOSE, 2 MG/3ML solution pen-injector Inject 0.25 mg under the skin 1 time per week. 01/27/20 25 Active tamsulosin (Flomax) 0.4 MG 24 hr capsule Take 1 capsule by mouth daily. 02/21/20 25 Active bumetanide (Bumex) 2 MG tabletIndications: Heart Failure,Hypertensi on Take 2 tablets by mouth 3 times a day. Active ondansetron ODT (Zofran-ODT) 8 MG disintegrating tablet Dissolve 1 tablet on the tongue every 12 hours as needed for nausea or vomiting. 03/30/20 25 Active ferrous sulfate 324 MG tablet delayed-release Take 1 tablet by mouth every other day. Do not crush, chew, or split. 05/19/20 25 Active insulin regular (HumuLIN R,NovoLIN R) 100 UNIT/ML injection vialIndications:Ty pe 2 Diabetes Mellitus Inject 250 Units under the skin 2 times a day with meals. 10 mL 5 05/17/20 25 Active gabapentin (Neurontin) 600 MG tablet Take 1 tablet by mouth 3 times a day. 5 tablet 05/17/20 25 Active insulin regular (HumuLIN R U-500) 500 UNIT/ML CONCENTRATED injection vial Inject 90 Units under the skin daily before lunch. 20 mL 5 05/18/20 25 Active Continuous Glucose Sensor (Dexcom G7 Sensor) [facility] 12/11/20 25 Active HYDROcodone-acetam inophen (Yorkshire) 10-325 MG tablet TAKE ONE TABLET BY MOUTH THREE TIMES DAILY NEEDED FOR moderate pain (scale score 5-6) Active LORazepam (Ativan) 1 MG tablet Take by mouth. 05/18/20 Active metOLazone (Zaroxolyn) 2.5 MG tablet 06/01/20 Active traZODone (Desyrel) 100 MG tablet Take 1 tablet by mouth nightly. 05/21/20 Active HumuLIN R U-500 KWIKPEN 500 UNIT/ML CONCENTRATED injection pen 06/21/20 Active Active Problems Problem Noted Date Diagnosed [...] Encounters Date Type Department Care Team Description 06/22/2025 1:40 PM EST Office Visit [facility] [address] [place] [address] Mary Vicente MD QUINN (obstructive sleep apnea) (Primary Dx); Chronic [...] procedure; Recurrent major depression resistant to treatment ([facility]); Smoker unmotivated to quit 06/22/2025 Travel 06/16/2025 Travel 06/13/2025 Telephone Vascular Surgery [address] [place] [phone] Rohith Ramires, LOLA 06/12/2025 Telephone [facility] [address], [address] [address] Mary Vicente MD 06/12/2025 Telephone [facility] [address], [address] [address] Mary Vicente MD HCN Clinical Concern/Question 05/29/2025 Telephone [facility] [address] [place] [phone] Pcp, No 05/26/2025 Telephone Wound Care [address] [place] [phone] Sheila Marcano PA 05/24/2025 Telephone [facility] [address], [address] [phone] Sheila Marcano PA HCN - Patient Message (Call request ); HCN Status Update Call #2 05/24/2025 Telephone Vascular Surgery [address] [place] [phone] Rohith Ramires RN 05/24/2025 Travel 05/19/2025 Telephone [facility] [address], [address] [phone] Sheila Marcano PA HCN Clinical Concern/Question; HCN Status Update Call #1 05/18/2025 Travel 05/17/2025 Travel 05/01/2025 7:30 AM EDT - 05/01/2025 8:50 AM EDT Surgery [facility] O[facility] [address] [place] [phone] Mary Vicente MD AMPUTATION,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 4th 05/01/2025 7:28 AM EDT Anesthesia Event [facility] [address] [place] [phone] Gilberto Rivera MD Ford, Richard F, MD 05/01/2025 Orders Only External Location [address] [place] [address] Provider, External 05/01/2025 Travel 04/28/2025 Travel 04/27/2025 9:29 PM EDT - 05/18/2025 11:48 AM EST Hospital Encounter [facility] Inpatient [address] [place] [address] Jessa Law MD Chapman, Steven B, Greg Armenta MD Oo, Yadana, MD Gerrard, Miranda E, MD Ramay, Selin Black, MD Goyal, Wily R, Other chronic osteomyelitis of right foot (CMS/HCC) (Primary Dx); Diabetic foot ulcer with osteomyelitis; Uncontrolled type 2 diabetes mellitus with hyperglycemia, with long-term current use of insulin; Type 2 diabetes mellitus with diabetic peripheral angiopathy without gangrene, with long-term current use of insulin Discharge Disposition: [facility] Facility 04/27/2025 Travel 04/19/2025 [facility] Endocrinology [address] [place] [phone] Divine Archer, PHP SOFTWARE ENGINEER Type 2 diabetes mellitus from Last 3 [...] any time in the past 12 m [facility], were you homeless or living in a mcc (including now)? No 04/28/2025 [facility] Utilities Answer Date Recorded In the past 12 months has th e [employer] gas, oil, or water company threatened to [...] F) 06/22/2025 1:32 PM EST Respiratory Rate 15 05/18/2025 7:34 AM EST Oxygen Saturation 95% 06/22/2025 1:32 PM EST Inhaled Oxygen Concentration - - Weight 249 kg (548 lb 15.1 oz) 06/22/2025 1:32 P M EST Height 182.9 cm (6' 0.01 ) 06/22/2025 1:32 PM ES T Body Mass Index 74.43 06/22/2025 1:32 PM EST Plan of Treatment Upcoming Encounters Date Type Department Care Team (Late st Contact Info) Description 08/03/2025 2:00 PM EST Office Visit [facility] [address] [place] [address] Mary Vicente MD [address] [facility] [address] [place] [address] Health Maintenance Due Date Last Done Comments [facility]-Medicare Annual Wellness (AWV) 1977 [facility]-Infant/Child/Adol SDOH Screenings 1977 Diabetes: Dental Exam 1987 [facility]-DTaP,Tdap,and Td Vaccines (1 - Tdap) 1996 [facility]-Hepatitis B Vaccines (1 of 3 - 19+ 3-dose series) 1996 CT Colonography 2022 Colonoscopy 2022 FIT-DNA 2022 FIT 2022 FOBT 2022 Sigmoidoscopy 2022 [facility]-Colorectal Cancer Screening 2022 DKR-[id number] Vaccine (3 - season) 2025 02/22/2021, 01/25/2021 [...] 12/24/2016 [facility]-Zoster Vaccines (1 of 2) 2027 [facility]-HIV Screening Completed 04/27/2025 [facility]-Hepatitis C Screening Completed 04/27/2025 [facility]-Obesity Intervention Completed 025, 06/22/2025, 01/10/2025, Additional history exists HPV Vaccines (No Doses Required) Completed [facility]-HIB Vaccines Aged Out No longer e [...] Procedure Name Priority Date/Time Associated Diagnosis Comments [facility] ORDER Routine 06/22/2025 2:05 PM EST POCT GLUCOSE METER UNSOLICITED RESULTS Routine 05/18/2025 [...] HC HBSAG Routine 05/03/2025 3:16 AM EDT HEPATITIS B [...] EDT from Last 3 Months Results * DME Order (06/22/2025 2:05 PM EST) [facility] NAME depict (Wound Care) [facility] PHONE [facility] DELIVERY STATUS Delivery Successful [facility]ERY NOTE [facility] REQUESTED DELIVERY DATE 06/22/2025 [facility] ACTUAL DELIVERY DATE 06/22/2025 [facility] ITEM DESCRIPTION Adaptic Petrolatum Emulsion Non-Adherent Dressing, 3 x 8 in., Box (24) [facility] Comment: Qty: 1 Substitution Status: In the event of product backorder, discontinuation, or patient preference, substitutions are permitted for wound care products on this order. [facility] ITEM DESCRIPTION [employer] Sterile Abdominal Pads, 5 x 9 in., Box (36) [facility] Comment: Qty: 1 Substitution Status: In the event of product backorder, discontinuation, or patient preference, substitutions are permitted for wound care products on this order. [facility] ITEM DESCRIPTION [employer] Fluff Gauze Bandage Roll, Sterile, 6-ply, 4.5 in. x 4.1 yd., Each (1) [facility] Comment: Qty: 30 Substitution Status: In the event of product backorder, discontinuation, or patient preference, substitutions are permitted for wound care products on this order. [facility] ITEM DESCRIPTION Jose-Band LF Latex Free Elastic Bandage with Hook and Loop Closure, Wound Care Treatment, NS, 3 in. x 5 yd., Box (10) [facility] Comment: Qty: 2 Substitution Status: In the event of product backorder, discontinuation, or patient preference, substitutions are permitted for wound care products on this order. 06/22/2025 2:05 PM EST us Mary Vicente MD DME ORDERABLES Final Result [facility] * (ABNORMAL) POCT glucose meter (05/18/2025 8:09 AM EST) Only the most recent of96 resultswithin the time period is included. [facility] POCT Glucose 124(H) 74 - 99 mg/dL 05/18/2025 8:11 AM EST [facility] Comment:Accuracy of a glucos e result [...] for testing. Comment 05/18/2025 8:11 AM EST [facility] Cigarette Making Machine Operator ID Cahr Hinojosa 05/18/2025 8:11 AM EST [facility] Device ID [id number] 05/18/2025 8:11 AM EST [facility] Specimen Type POC Capillary 05/18/2025 8:11 AM EST [facility] Blood Capillary blood specimen / Unknown 05/18/2025 8:09 AM EST 05/18/2025 8:11 AM EST Wily Goyal DO LAB POINT OF CARE TE ST DOCKED DEVICE UNSOLICITED RESULTS Final Result Performing Organization Address City/State/[facility] Co de Phone Number HEALTHCARE LAB [address] [place] [address] * ECHO, ADULT TRANSTHORACIC COMPLETE W/ CONTRAST [...] Ao Diam 37 mm HANK ISCV PA WV(ACCEL) 24.6 mmHg HANK ISCV LV mean PG [...] is no recent study available for direct [id number] comparison. Left Ventricle The left ventricle is [...] is no recent study available for direct [id number] comparison. [facility] DO CV ECHO PROCEDURES Final Result * ECG Adult (05/16/2025 3:33 PM EST) Only the most recent of6 resultswithin the time period is included. EKG DIAGNOSIS CLASS Abnormal MUSE ECG Ventricular Rate 58 BPM MUSE ECG Atrial Rate 58 BPM MUSE ECG WV Interval 184 ms MUSE ECG QRSD Interval 158 ms MUSE ECG QT Interval 496 ms MUSE ECG QTC Interval 486 ms MUSE ECG P Wall[place]rass 30 degrees MUSE ECG R [place] -35 degrees MUSE ECG T Wave Wallagrass -5 degrees MUSE ECG Diagnosis Sinus bradycardia [...] 3:33 PM EST 05/18/2025 12:15 AM EST [facility] DO ECG ORDERABLES Final Result MUSE ECG * (ABNORMAL) CBC and Differential (05/16/2025 4:08 AM EST) Only the most recent of12 resultswithin the time period is included. Pathologist [facility] WBC Count 7.97 3.70 - 10.30 10*3/uL LAB HEMATOLOGY METHOD 05/16/2025 4:26 AM EST [facility] RBC Count 4.27(L) 4.60 - 6.10 10*6/uL LAB HEMATOLOGY METHOD 05/16/2025 4:26 AM EST [facility] HGB 9.5(L) 13.7 - 17.5 g/dL LAB HEMATOLOGY METHOD 05/16/2025 4:26 AM EST [facility] HCT 31.6(L) 40.0 - 51.0 % LAB HEMATOLOGY METHOD 05/16/2025 4:26 AM EST [facility] Platelet Count 264 155 - 369 10*3/uL LAB HEMATOLOGY METHOD 05/16/2025 4:26 AM [facility] MCV 74(L) 79 - 98 fL LAB HEMATOLOGY METHOD 05/16/2025 4:26 AM [facility] MCH 22.2(L) 26.0 - 32.0 pg LAB HEMATOLOGY METHOD 05/16/2025 4:26 AM EST [facility] MCHC 30.1(L) 30.7 - [...] [facility] Immature Granulocytes % 1 % LAB HEMATOLOGY METHOD 05/16/2025 4:26 AM [facility] Neutrophils Absolute 5.39 1.60 - 6.10 10*3/uL LAB HEMATOLOGY METHOD 05/16/2025 4:26 AM [facility] Lymphocytes Absolute 1.30 1.20 - 3.90 10*3/uL LAB HEMATOLOGY METHOD 05/16/2025 4:26 AM EST [facility] Monocytes Absolute 0.93(H) 0.30 - 0.90 10*3/uL LAB HEMATOLOGY METHOD 05/16/2025 4:26 AM EST [facility] Eosinophils Absolute 0.26 0.00 - 0.50 10*3/uL LAB HEMATOLOGY METHOD 05/16/2025 4:26 AM EST [facility] Basophils Absolute 0.05 0.00 - 0.10 10*3/uL LAB HEMATOLOGY METHOD 05/16/2025 4:26 AM EST [facility] Immature Granulocytes Absolute 0.04 0.00 - 0.06 10*3/uL LAB HEMATOLOGY METHOD 05/16/2025 4:26 AM EST [facility] Blood Venous blood specimen / Unknown Venipuncture / Unknown 05/16/2025 4:08 AM EST 05/16/2025 4:17 AM EST Narrative [facility] - 05/16/2025 4:26 AM EST Therapeutic decision making should be based on absolute values, rather than percentages. us Selin Lee MD LAB BLOOD ORDERABLES Final Re sult Performing Organization Address City/[facility]/ZIP Co de Phone Number [facility] [address] [place] [address] * Phosphorus, Plasma (05/16/2025 4:08 AM EST) Only the most recent of11 resultswithin the time period is included. Phosphorus, Plasma 3.7 2.5 - 4.5 mg/dL 05/16/2025 4:48 AM EST [facility] Blood Venous blood specimen / Unknown Venipuncture / Unknown 05/16/2025 4:08 AM EST 05/16/2025 4:16 AM EST us Selin Lee MD LAB BLOOD ORDERABLES Final Re sult [facility] [address] [place] [address] * (ABNORMAL) Magnesium, Plasma (05/16/2025 4:08 AM EST) Only the most recent of13 resultswithin the time period is included. Magnesium, Plasma 1.8(L) 1.9 - 2.4 mg/dL 05/16/2025 4:48 AM EST [facility] Blood Venous blood specimen / Unknown Venipuncture / Unknown 05/16/2025 4:08 AM EST 05/16/2025 4:16 AM EST us Selin Lee MD LAB BLOOD ORDERABLES Final Re sult [facility] [address] [place] [address] * (ABNORMAL) Basic Metabolic Panel, Plasma (05/16/2025 4:08 AM EST) Only the most recent of12 resultswithin the time period is included. Glucose, Plasma 168(H) 74 - 99 mg/dL 05/16/2025 4:48 AM EST [facility] BUN, Plasma 19 7 - 21 mg/dL 05/16/2025 4:48 AM EST [facility] Creatinine, Plasma 0.86 0.70 - 1.20 mg/dL 05/16/2025 4:48 AM EST [facility] BUN/Creatinine Ratio 22 05/16/2025 4:48 AM EST [facility] Sodium, Plasma 131(L) 136 - 145 mmol/L 05/16/2025 4:48 AM EST [facility] Potassium, Plasma 3.6 3.6 - 4.9 mmol/L 05/16/2025 4:48 AM EST [facility] Chloride, Plasma 88(L) 97 - 107 mmol/L 05/16/2025 4:48 AM EST [facility] CO2, Plasma 34(H) 22 - 29 mmol/L 05/16/2025 4:48 AM EST [facility] Anion Gap 9 6 - 16 mmol/L 05/16/2025 4:48 AM EST [facility] Total Calcium, Plasma 9.3 8.9 - 10.2 mg/dL 05/16/2025 4:48 AM EST [facility] eGFRcr 107.5 mL/min/1.7 3m*2 05/16/2025 4:48 AM EST [facility] Comment:Reported eGFRcr in m L/min/1.73m2 is based the CKD-EPI 2020 equation that does not use a race coefficient. Blood Venous blood specimen / Unknown Venipuncture / Unknown 05/16/2025 4:08 AM EST 05/16/2025 4:16 AM EST Selin Lee MD LAB BLOOD ORDERABLES Final Re sult Performing Organization Address [facility] [place] [address] * PSA, diagnostic (05/06/2025 12:27 PM EDT) PSA, Diagnostic, Serum 0.03 0.00 - 2.50 ng/mL 05/06/2025 1:10 PM EDT [facility] Blood Venous blood specimen / Unknown Venipuncture / Unknown 05/06/2025 12:27 PM EDT 05/06/2025 12:33 PM EDT Narrative [facility] - 05/06/2025 1:10 PM EDT Performed by Bella electrochemiluminescent immunoassay which is standardized against the PSA [place] Reference Standard (WHO 96/670). Results obtained with different test methods or kits cannot be used interchangeably. Diane Guzman MD LAB BLOOD ORDERABLES Final Result Performing Organization Address [facility] [place] [address] * Creatine Kinase (CK), Total (05/03/2025 6:22 PM EDT) Only the most recent of4 resultswithin the time period is included. Creatine Kinase, Plasma 54 49 - 320 U/L 05/03/2025 7:13 PM EDT [facility] Blood Venous blood specimen / Unknown Venipuncture / Unknown 05/03/2025 6:22 PM EDT 05/03/2025 6:38 PM EDT Diane Guzman MD LAB BLOOD ORDERABLES Final Result [facility] [address] [place] [address] * (ABNORMAL) Comprehensive metabolic panel (05/03/2025 6:22 PM EDT) Only the most recent of2 resultswithin the time period is included. Glucose, Plasma 290(H) 74 - 99 mg/dL 05/03/2025 7:13 PM EDT [facility] BUN, Plasma 14 7 - 21 mg/dL 05/03/2025 7:13 PM EDT [facility] Creatinine, Plasma 0.71 0.70 - 1.20 mg/dL 05/03/2025 7:13 PM EDT [facility] BUN/Creatinine Ratio 20 05/03/2025 7:13 PM EDT [facility] Sodium, Plasma 133(L) 136 - 145 mmol/L 05/03/2025 7:13 PM EDT [facility] Potassium, Plasma 3.6 3.6 - 4.9 mmol/L 05/03/2025 7:13 PM EDT [facility] Chloride, Plasma 87(L) 97 - 107 mmol/L 05/03/2025 7:13 PM EDT [facility] CO2, Plasma 37(H) 22 - 29 mmol/L 05/03/2025 7:13 PM EDT [facility] Anion Gap 9 6 - 16 mmol/L 05/03/2025 7:13 PM EDT [facility] Total Calcium, Plasma 9.4 8.9 - 10.2 mg/dL 05/03/2025 7:13 PM EDT [facility] Total Protein 8.0(H) 6.3 - 7.9 g/dL 05/03/2025 7:13 PM EDT [facility] Albumin, Plasma 3.6 3.5 - 5.2 g/dL 05/03/2025 7:13 PM EDT [facility] AST, Plasma 18 10 - 50 U/L 05/03/2025 7:13 PM EDT [facility] ALT, Plasma 12 10 - 50 U/L 05/03/2025 7:13 PM EDT [facility] Alkaline Phosphatase, Plasma 64 40 - 115 U/L 05/03/2025 7:13 PM EDT [facility] Total Bilirubin, Plasma 0.7 0.2 - 1.1 mg/dL 05/03/2025 7:13 PM EDT [facility] eGFRcr 113.9 mL/min/1.7 3m*2 05/03/2025 7:13 PM EDT [facility] Comment:Reported eGFRcr in m L/min/1.73m2 is based the CKD-EPI 2020 equation that does not use a race coefficient. Blood Venous blood specimen / Unknown Venipuncture / Unknown 05/03/2025 6:22 PM EDT 05/03/2025 6:38 PM EDT Diane Guzman MD LAB BLOOD ORDERABLES Final Result Performing Organization Address [facility] Co de Phone Number [facility] [address] [place] [address] * Hepatitis B Surface Antibody, Quantitative (05/03/2025 3:16 AM EDT) Pathologist [facility] Hepatitis B Surface Antibody, Quantitative <8.00 NonReactiv e: <8, Grayzone: 8 - <12, Reactive: >= 12 mIU/mL 05/03/2025 4:28 AM EDT [facility] Comment: Nonreactive. Individual is considered not immune to HBV infection. Blood Venous blood specimen / Unknown Venipuncture / Unknown 05/03/2025 3:16 AM EDT 05/03/2025 3:24 AM EDT Diane Guzman MD LAB BLOOD ORDERABLES Final Result Performing Organization Address City/[facility]/ZIP Co de Phone Number [facility] [address] [place] [address] * Hepatitis A Antibody IgG (05/03/2025 3:16 AM EDT) Pathologist [facility] Hepatitis A Antibody IgG Negative Negative 05/03/2025 4:28 AM EDT [facility] Blood Venous blood specimen / Unknown Venipuncture / Unknown 05/03/2025 3:16 AM EDT 05/03/2025 3:24 AM EDT us Diane Guzman MD LAB BLOOD ORDERABLES Final Result Performing Organization Address City/[facility]/ZIP Co de Phone Number [facility] [address] [place] [address] * Hepatitis B Core Total Antibody IgG,IgM (05/03/2025 3:16 AM EDT) Hepatitis B Core Total Antibody IgG,IgM Negative Negative 05/03/2025 4:28 AM EDT [facility] Blood Venous blood specimen / Unknown Venipuncture / Unknown 05/03/2025 3:16 AM EDT 05/03/2025 3:24 AM EDT us Diane Guzman MD LAB BLOOD ORDERABLES Final Result Performing Organization Address City/[facility] [place] [address] * Hepatitis B Surface Antigen (05/03/2025 3:16 AM EDT) [facility] Hepatitis B Surf Antigen Negative Negative 05/03/2025 4:28 AM EDT [facility] Blood Venous blood specimen / Unknown Venipuncture / Unknown 05/03/2025 3:16 AM EDT 05/03/2025 3:24 AM EDT us Diane Guzman MD LAB BLOOD ORDERABLES Final Result Performing Organization Address City/[facility] Co de Phone Number [facility] [address] [place] [address] * Nasopharyngeal Respiratory Panel (05/02/2025 1:05 PM EDT) [facility] Nasopharyngeal Respiratory PCR Interpretation Not Detected for all analytes Not Detected for all analytes 05/02/2025 3:14 PM EDT [facility] Swab Nasopharyngeal structure / Unknown Non-blood Collection / Unknown 05/02/2025 1:05 PM EDT 05/02/2025 1:12 PM EDT Narrative [facility] - 05/02/2025 3:14 PM EDT [...] Respiratory PCR Panel is performed using the Live Gamerlex instrument. This test is FDA approved for use with Nasopharyngeal swabs only. This test is used for clinical purposes. It should not be regarded as investigational or for research. The [facility] Clinical Microbiology Laboratory is certified under the Clinical Laboratory Improvement Amendments of 1988 (CLIA-88) as qualified to perform high complexity clinical laboratory testing. Diane Guzman MD LAB MICROBIOLOGY - GENERAL ORDERABLES Final Result [facility] [address] [place] [address] * Surgical Pathology Exam (05/01/2025 8:13 AM EDT) Case Report Surgical Pathology Case: [id number] Authorizing Provider: Mary Vicente MD Collected: 05/01/2025 0813 Ordering Location: [facility] OPERATING ROOM Received: 05/01/2025 0917 Pathologist: Vidya Ly MD Specimens: A) - Toe, Right, R 5th toe B) - Toe, Right, R 5th toe margin 05/09/2025 9:56 AM EDT [facility] Correction History Case amended to provide diagnosis after final decal sections received 05/09/2025 9:56 AM EDT [facility] Comment:These results have b een appended to a previously final verified report. Final Diagnosis A. RIGHT FIFTH TOE, AMPUTATION: - ULCER WITH SUPPURATIVE INFLAMMATION, GANGRENOUS NECROSIS, AND UNDERLYING ACUTE OSTEOMYELITIS. B. RIGHT FIFTH TOE MARGIN, RESECTION: - NO ACUTE OSTEOMYELITIS IDENTIFIED. 05/09/2025 9:56 AM EDT [facility] Amendment electronically signed by Vidya Ly MD on 05/09/2025 at 0956 EDT at 1233 EDT Comment:Corrected result: Pr eviously reported as [Previous value contains rich text formatting which cannot be displayed here] (see Result History) on 05/05/2025 at 1233 EDT. Clinical Information Other chronic osteomyelitis of right foot (CMS/HCC) [M86.671] 05/09/2025 9:56 AM EDT [facility] Gross Description A. R 5TH [...] The wound extends into the underlying bone. Tunnel Man sections are submitted as follows: A1-A2: Necrotic lateral skin A3: Bone underlying gaping wound, following decalcification A4: Bone margin, following decalcification BLAS Kwok ([facility]) B. R 5TH TOE MARGIN The specimen is received fresh and placed in formalin, labeled R 5th toe MARGIN , and consists of a 2.8 x 2.8 x 0.6 cm aggregate of hemorrhagic bony fragments. The specimen is entirely submitted in cassette B1, following decalcification. Cold Time: 25m BLAS Kwok ([facility]) 05/09/2025 9:56 AM EDT [facility] Note: 05/09/2025 9:56 AM EDT [facility] Comment:Corrected result: Pr eviously reported [...] LAB PATHOLOGY ORDERABLES Edited Result - Final [facility] [address] [id number] * PB POINT OF CARE IMAGING PLACEHOLDER [...] monitoring: continuous pulse ox, heart rate and drag seiner Block type: adductor canal and popliteal Laterality: [...] ORDERA BLES Final Result BLOOD BANK [address] [place] [address], * POC Imaging (05/01/2025) Anatomical Region Laterality Modality Pelvis Other 05/01/2025 us External Provider IMG POINT OF CARE ULTRASOUND E dited Result - Final * (ABNORMAL) Iron & Total Iron Binding Capacity, Plasma (Includes Transferrin) (04/29/2025 3:04 AM EDT) Iron, Plasma 36(L) 50 - 170 ug/dL 04/29/2025 3:55 AM EDT [facility] Transferrin, Plasma 197(L) 200 - 360 mg/dL 04/29/2025 3:55 AM EDT [facility] Total Iron Binding Capacity, Plasma 246 240 - 450 ug/mL 04/29/2025 3:55 AM EDT [facility] Transferrin Saturation 15 14 - 50 % 04/29/2025 3:55 AM EDT [facility] Blood Venous blood specimen / Unknown Venipuncture / Unknown 04/29/2025 3:04 AM EDT 04/29/2025 3:19 AM EDT us Dirk A [employer] PHP SOFTWARE ENGINEER, DNP LAB BLOOD ORDERABLES Fin al Result [facility] [address] [place] [address] * TSH (04/29/2025 3:04 AM EDT) Thyroid Stimulating Hormone, Plasma 1.58 0.40 - 4.20 uIU/mL 04/29/2025 3:55 AM EDT [facility] Blood Venous blood specimen / Unknown Venipuncture / Unknown 04/29/2025 3:04 AM EDT 04/29/2025 3:19 AM EDT Sy De La Fuente APRN, DNP LAB BLOOD ORDERABLES Fin al Result Performing Organization Address [facility] Co de Phone Number [facility] [address] [place] [address] * (ABNORMAL) Hemoglobin A1c (04/29/2025 3:04 AM EDT) Hemoglobin A1c 8.9(H) <5.7 % 04/29/2025 9:40 AM EDT [facility] Blood Venous blood specimen / Unknown Venipuncture / Unknown 04/29/2025 3:04 AM EDT 04/29/2025 3:19 AM EDT Narrative [facility] - 04/29/2025 9:40 AM EDT HA1C Interpretive Data: Diagnosis of Diabetes: Diabetic > or = 6.5% Pre-diabetic 5.7 to 6.4% Non-diabetic < or = 5.6% Glycemic Targets for Type I and Type II Diabetics: Non- Adults <7.0% Adults <6.0% Children and Adolescents <7.5% Source: [place] [employer]. Standards of medical care in diabetes,2017. Diabetes Care.2017:40 (suppl 1):S1-S135. us Sy De La Fuente APRN, DNP LAB BLOOD ORDERABLES Fin al Result [facility] [address] [place] [address] * Folate (04/29/2025 3:04 AM EDT) Folate, Serum 10.5 >4.6 ng/mL 04/29/2025 4:05 AM EDT [facility] Blood Venous blood specimen / Unknown Venipuncture / Unknown 04/29/2025 3:04 AM EDT 04/29/2025 3:20 AM EDT Sy De La Fuente PHP SOFTWARE ENGINEER, DNP LAB BLOOD ORDERABLES Fin al Result Performing Organization Address City/[facility] Co de Phone Number [facility] [address] [place] [address] * Ferritin (04/29/2025 3:04 AM EDT) Ferritin, Serum 40 20 - 400 ng/mL 04/29/2025 4:06 AM EDT [facility] Blood Venous blood specimen / Unknown Venipuncture / Unknown 04/29/2025 3:04 AM EDT 04/29/2025 3:20 AM EDT us Sy De La Fuente APRN, DNP LAB BLOOD ORDERABLES Fin al Result Performing Organization Address [facility] de Phone Number [facility] [address] [place] [address] * Vitamin B12 (04/29/2025 3:04 AM EDT) Vitamin B12, Serum 338 210 - 1,033 pg/mL 04/29/2025 4:06 AM EDT [facility] Blood Venous blood specimen / Unknown Venipuncture / Unknown 04/29/2025 3:04 AM EDT 04/29/2025 3:20 AM EDT us Sy De La Fuente PHP SOFTWARE ENGINEER, DNP LAB BLOOD ORDERABLES Fin al Result Performing Organization Address City/[facility] Co de Phone Number [address] [address] * Cortisol (04/29/2025 3:04 AM EDT) Cortisol 2.80 Before 10am: 3.7 - 19.4. After 5pm: 2.9 - 17.3 ug/dL 04/29/2025 4:22 AM EDT [facility] Comment:Testing performed on Matt Stylist Assistant, standardized against [facility] Reference Standard concentration values assigned by LC-MS/MS and verified by BCR 192 and BCR 193 certified reference materials. Blood Venous blood specimen / Unknown Venipuncture / Unknown 04/29/2025 3:04 AM EDT 04/29/2025 3:19 AM EDT us Sy De La Fuente PHP SOFTWARE ENGINEER, DNP LAB REF LAB BLOOD AND FL UID ORD Final Result [facility] [address] [place] [address] * VAS Ankle Brachial Index - GABBI [...] are demonstrated at the levels of the SPECIAL DELIVERY CARRIER and DPA. Segmental pressures are within normal limits with a SPECIAL DELIVERY CARRIER GABBI of 1.1 (172 mmHg) and a DPA GABBI of 1.0 (149 mmHg). Digit pressures are of 122 mmHg. Left: Multiphasic waveforms are demonstrated at the levels of the SPECIAL DELIVERY CARRIER and DPA. Segmental pressures are within normal limits with a SPECIAL DELIVERY CARRIER GABBI of 1.1 (164 mmHg) and a DPA GABBI of 1.0 (153 mmHg). Digit pressures are of 151 mmHg. Procedure Note Chris Schaefer MD - 04/28/2025 CLINICAL INDICATION: Diabetic foot ulcer TECHNIQUE: Non-invasive, continuous wave Doppler exam with segmental pressures andspectral analysis of the lower extremity was performed. COMPARISON: None. FINDINGS: Right: Multiphasic waveforms are demonstrated at the levels of the SPECIAL DELIVERY CARRIER andDPA. Segmental pressures are within normal limits with a SPECIAL DELIVERY CARRIER GABBI of 1.1(172 mmHg) and a DPA GABBI of 1.0 (149 mmHg). Digit pressures are of 122mmHg. Left: Multiphasic waveforms are demonstrated at the levels of the SPECIAL DELIVERY CARRIER andDPA. Segmental pressures are within normal limits with a SPECIAL DELIVERY CARRIER GABBI of 1.1(164 mmHg) and a DPA [...] on04/28/2025 4:14 PM Sy De La Fuente PHP SOFTWARE ENGINEER, DNP CV VASCULAR PROCEDURES F inal Result * Multi Drug Resistance Test (04/28/2025 1:44 PM EDT) Culture No Multi Drug Resistant Organisms Isolated 04/29/2025 2:32 PM EDT [facility] Swab (Nares and Saba Rectal) Non-blood Collection / Unknown 04/28/2025 1:44 PM EDT 04/28/2025 2:15 PM EDT Narrative [facility] - 04/29/2025 2:32 PM EDT This test was developed and its performance characteristics determined by the [facility]. Although the media is FDA-approved, it is not FDA-approved for all specimen types submitted. The FDA has determined that such clearance or approval is not necessary. This test is used for surveillance purposes. It should not be regarded as investigational or for research. The [facility] is certified under the Clinical Laboratory Improvement Amendments of 1988 (CLIA-88) as qualified to perform high complexity clinical laboratory testing. Sy De La Fuente APRN, DENISE LAB MICROBIOLOGY - GENER AL ORDERABLES Final Result Performing Organization Address [facility]/ZIP Co de Phone Number [facility] [address] [place] [address] * Lavender Top (04/28/2025 8:13 AM EDT) Extra Hold for add-ons 04/28/2025 11:01 AM EDT [facility] Comment:Auto resulted. Blood Venous blood specimen / Unknown 04/28/2025 8:13 AM EDT 04/28/2025 8:19 AM EDT Marjorie Myers MD LAB BLOOD ORDERABLES Final Resul t Performing Organization Address [facility] Co de Phone Number [facility] [address] [place] [address] * Light Green Top (04/28/2025 8:13 AM EDT) Extra Hold for add-ons 04/28/2025 11:01 AM EDT [facility] Comment:Auto resulted. Blood Venous blood specimen / Unknown 04/28/2025 8:13 AM EDT 04/28/2025 8:19 AM EDT Marjorie Myers MD LAB BLOOD ORDERABLES Final Resul t Performing Organization Address [facility] Co de Phone Number [facility] [address] [place] [address] * APTT (04/28/2025 8:13 AM EDT) aPTT 32 25 - 35 sec 04/28/2025 8:33 AM EDT [facility] Blood Venous blood specimen / Unknown Venipuncture / Unknown 04/28/2025 8:13 AM EDT 04/28/2025 8:18 AM EDT us Sy De La Fuente APRN, DNP LAB BLOOD ORDERABLES Fin al Result Performing Organization Address [facility] de Phone Number [facility] [address] [place] [address] * (ABNORMAL) PT/INR (04/28/2025 8:13 AM EDT) Prothrombin Time 17.5(H) 12.0 - 14.3 sec 04/28/2025 8:33 AM EDT [facility] INR 1.4(H) 0.9 - 1.1 04/28/2025 8:33 AM EDT [facility] Blood Venous blood specimen / Unknown Venipuncture / Unknown 04/28/2025 8:13 AM EDT 04/28/2025 8:18 AM EDT Narrative [facility] - 04/28/2025 8:33 AM EDT OPTIMAL INR RANGES FOR PATIENT ON ORAL ANTICOAGULANT THERAPY Prevention of venous thromboembolism INR 2.0 to 3.0 In patients with heart disease: Atrial fibrillation INR 2.0 to 3.0 Valvular heart disease INR 2.0 to 3.0 Tissue heart valves INR 2.0 to 3.0 Mechanical prosthetic valves INR 2.5 to 3.5 Prevention of recurrent IA INR 2.5 to 3.5 us Sy De La Fuente APRN, DENISE LAB BLOOD ORDERABLES Fin al Result Performing Organization Address [facility] de Phone Number [address] [address] * CT Foot Right w IV Contrast [...] on 04/28/2025 5:27 AM Jessa Law MD IM CT PROCEDURES Final Result * XR Foot [...] at day 5 05/03/2025 12:01 AM EDT [facility] Blood Venous blood specimen / Unknown Venipuncture / Unknown 04/27/2025 10:16 PM EDT 04/27/2025 10:53 PM EDT us Jessa Law MD LAB MICROBIOLOGY - [facility] Final Result [facility] [address] [place] [address] * (ABNORMAL) Blood gas, venous (04/27/2025 10:16 PM EDT) pH, Venous 7.47(H) 7.32 - 7.43 LAB HEMATOLOGY METHOD 04/27/2025 10:21 PM EDT [facility] pCO2, Venous 50 40 - 55 mmHg LAB HEMATOLOGY METHOD 04/27/2025 10:21 PM EDT [facility] pO2, Venous 30 25 - 40 mmHg LAB HEMATOLOGY METHOD 04/27/2025 10:21 PM EDT [facility] SO2, Measured, Venous 52(L) 65 - 80 % LAB HEMATOLOGY METHOD 04/27/2025 10:21 PM EDT [facility] Base Excess, Venous 11.6(H) -2.0 - 3.0 mmol/L LAB HEMATOLOGY METHOD 04/27/2025 10:21 PM EDT [facility] Bicarbonate, Calculated, Venous 37(H) 22 - 26 mmol/L LAB HEMATOLOGY METHOD 04/27/2025 10:21 PM EDT [facility] Hematocrit, Whole Blood 30.1(L) 40.0 - 51.0 % LAB HEMATOLOGY METHOD 04/27/2025 10:21 PM EDT [facility] Sodium, Whole Blood 136 136 - 145 mmol/L LAB HEMATOLOGY METHOD 04/27/2025 10:21 PM EDT [facility] Potassium, Whole Blood 2.8(L) 3.6 - 4.9 mmol/L LAB HEMATOLOGY METHOD 04/27/2025 10:21 PM EDT [facility] Chloride, Whole Blood 88(L) 97 - 107 mmol/L LAB HEMATOLOGY METHOD 04/27/2025 10:21 PM EDT [facility] Glucose, Whole Blood 131(H) 74 - 99 mg/dL LAB HEMATOLOGY METHOD 04/27/2025 10:21 PM EDT [facility] Lactate, Venous, Whole Blood 2.0 0.5 - 2.2 mmol/L LAB HEMATOLOGY METHOD 04/27/2025 10:21 PM EDT [facility] Ionized Calcium, Whole Blood 4.2(L) 4.6 - 5.1 mg/dL LAB HEMATOLOGY METHOD 04/27/2025 10:21 PM EDT [facility] Blood Venous blood specimen / Unknown Venipuncture / Unknown 04/27/2025 10:16 PM EDT 04/27/2025 10:20 PM EDT us Jessa Law MD LAB BLOOD ORDERABLES Final Resu lt Performing Organization Address [facility]/ZIP Co de Phone Number [facility] [address] [place] [address] * ED HIV 1/2 Antibody/Antigen Screen w/Reflex to HIV 1/2 Differentiation (04/27/2025 9:37 PM EDT) HIV 1 & 2 Antibody/Antigen Screen Non Reactive Non Reactive 04/27/2025 10:41 PM EDT [facility] Comment:Screening for HIV 1 & 2 antibodies, and P24 antigen is NONREACTIVE. No confirmatory testing is required. Blood Venous blood specimen / Unknown Venipuncture / Unknown 04/27/2025 9:37 PM EDT 04/27/2025 10:00 PM EDT us Pool Jean MD LAB BLOOD ORDERABLES Final Res ult Performing Organization Address [facility] Co de Phone Number [facility] [address] [place] [address] * Beta-Hydroxybutyric Acid (04/27/2025 9:37 PM EDT) Beta-Hydroxybut yric Acid, Plasma 0.23 <=0.27 mmol/L 04/27/2025 10:56 PM EDT [facility] Blood Venous blood specimen / Unknown Venipuncture / Unknown 04/27/2025 9:37 PM EDT 04/27/2025 9:40 PM EDT us Jessa Law MD LAB BLOOD ORDERABLES Final Resu lt Performing Organization Address [facility]/ZIP Co de Phone Number [facility] [address] [place] [address] * (ABNORMAL) Procalcitonin (04/27/2025 9:37 PM EDT) Pathologist [facility] Procalcitonin, Plasma 0.11(H) <0.09 ng/mL 04/28/2025 8:36 AM EDT [facility] Blood Venous blood specimen / Unknown Venipuncture / Unknown 04/27/2025 9:37 PM EDT 04/27/2025 9:40 PM EDT Narrative [facility] - 04/28/2025 8:36 AM EDT [...] predict 28 day mortality risk. Please consult [email or web address]-[email or web address] for more information. Test performed at [facility]. us Sy De La Fuente APRN, DENISE LAB BLOOD ORDERABLES Fin al Result Performing Organization Address City/[facility]/ZIP Co de Phone Number [facility] [address] [place] [address] * Hepatitis C Antibody - ED (04/27/2025 9:37 PM EDT) Pathologist [facility] Hepatitis C Antibody Negative Negative 04/27/2025 10:41 PM EDT [facility] Blood Venous blood specimen / Unknown Venipuncture / Unknown 04/27/2025 9:37 PM EDT 04/27/2025 10:00 PM EDT us Pool Jean MD LAB BLOOD ORDERABLES Final Res ult Performing Organization Address City/[facility]/ZIP Co de Phone Number [facility] [address] [place] [address] * (ABNORMAL) Sed rate, automated (04/27/2025 9:37 PM EDT) Sedimentation Rate >111(H) <15 mm/hr 2024 11:10 PM EDT [facility] Blood Venous blood specimen / Unknown Venipuncture / Unknown 04/27/2025 9:37 PM EDT 04/27/2025 9:40 PM EDT us Jessa Law MD LAB BLOOD ORDERABLES Final Resu lt Performing Organization Address [facility] Co de Phone Number [facility] [address] [place] [address] * (ABNORMAL) C-reactive protein (04/27/2025 9:37 PM EDT) CRP, Plasma 82.6(H) <=8.0 mg/L 04/27/2025 10:03 PM EDT [facility] Blood Venous blood specimen / Unknown Venipuncture / Unknown 04/27/2025 9:37 PM EDT 04/27/2025 9:40 PM EDT Narrative [facility] - 04/27/2025 10:03 PM EDT This CRP test is appropriate for assessment of infection, systemic inflammation and/or tissue injury. To assess cardiovascular disease risk order high sensitivity CRP (CRPH). Pool Jean MD LAB BLOOD ORDERABLES Final Res ult Performing Organization Address [facility] Co de Phone Number [facility] [address] [place] [address] from Last 3 Months Insurance [facility] [place] [address] Advance Directives * Full Code (Latest Code [...] updated to appropriate status: Yes Care Teams Underwriting Support Manager Relationship Specialty Start Date End Date Malcolm Hayward APRN [address] [place] [id number] PCP - General 09/21/23
== END 2025-06-28 23:59 | disposition home or self-care (01) ==
LOC: LAB.DROPOF 19:23
PROVIDERS: PCP Nurse Practitioner Family; Visit Provider Nurse Practitioner Family
DX: R69 Illness, unspecified (principal)

== ENCOUNTER 2025-06-29 13:31 | Outpatient (CLI) | payer MEDICARE, BC, SELFPAY ==
--- OUTSIDE RECORDS SUMMARY | 2025-04-27 20:29 | XMS_ITS | Encounter Summary ---
Author Organization [facility] Address [address] [place] [address] Care Team Providers Care Patient Educator Name Role Phone Malcolm Hayward APRN Primary Care Provider [phone] Reason for Referral * Consultation (Routine) - Authorized Specialty Diagnoses / Procedures Referred By Contac t Referred To Contact Endocrinology Diagnoses Uncontrolled type 2 diabetes mellitus with hyperglycemia, with long-term current use of insulin Type 2 diabetes mellitus with diabetic peripheral angiopathy without gangrene, with long-term current use of insulin Martina Foote PA [address] [place] [address] Phone: tel: fax: Referral ID Status Reason Start Date Expiration Date Visits Requested Visits Authorized [id number] Authorized Specialty Services Required 11/04/2026 1 1 * Consultation (Routine) - Closed Specialty Diagnoses / Procedures Referred By Contact Referred To Contact Vascular Surgery / [facility] Diagnoses Diabetic foot ulcer with osteomyelitis Diane Guzman MD [address] [place] [address] Phone: tel:[phone] fax:[phone] [place] [facility] [address] [facility] 5th Floor [address] [place] [address] Phone: tel: fax: Referral ID Status Reason Start Date Expiration Date V isits Requested Visits Authorized [id number] Closed Specialty Services Required 05/03/2025 11/02/2026 1 1 Reason for Visit * Reason Comments Wound Check * Auth/Cert (Routine) Specialty Diagnoses / Procedures Referred By Anish t Referred To Contact Diagnoses Diabetic foot ulcer with osteomyelitis Greg Lee MD [address] [place] [address] Phone: tel: fax: [facility] Emergency Department [address] [place] [address] Phone: tel: Referral ID Status Reason Start Date Expiration Date Visits Re quested Visits Authorized [id number] 1 1 Encounter Details Date Type Department Care Team (Latest Contact Info) Description 04/27/2025 9:29 PM EDT - 05/18/2025 11:48 AM EST Hospital Encounter [facility] Inpatient [address] [place] [address] Jessa Law MD [address] [place] [address] Man Garcia, DO [address] [place] [address] Greg Lee MD [address] [place] [address] Marjorie Myers MD [address] [place] [address] Diane Guzman MD [address] [place] [address] Selin Lee MD [address] [place] [address] Wily Goyal, DO [address] [place] [address] Other chronic osteomyelitis of right foot (CMS/HCC) (Primary Dx); Diabetic foot ulcer with osteomyelitis; Uncontrolled type 2 diabetes mellitus with hyperglycemia, with long-term current use of insulin; Type 2 diabetes mellitus with diabetic peripheral angiopathy without gangrene, with long-term current use of insulin Discharge Disposition: Prison Facility Social History Tobacco Use Types Packs/Day [...] living in a usp (including now)? No 04/28/2025 [facility] Utilities Answer Date Recorded In the past 12 months has [employer] electric, gas, oil, or water company threatened [...] documented in this encounter Functional Status * Question Answer Date of Assessment Author Precautions Environmental surveillance 05/18/2025 8:0 0 AM Kylee Ravi RN * Calculated C-SSRS Risk Score (Lifetime/Recent) Answer [...] Ravi RN documented as of this encounter Mental Status * Question Answer Entry Date Author Precautions Environmental surveillance 05/18/2025 8:0 0 AM Kylee Ravi RN documented in this encounter Medications at Time [...] 5 tablet 05/17/2025 Insulin Pen Needle (Pen Pembroke) 31G X 5 MM mis USE TO [...] day with meals. 10 mL 5 05/17/2025 LORazepam (Ativan) 1 MG tablet Take by mouth. 05/18/2025 metFORMIN (Glucophage) 1000 MG tabletIndications:T ype 2 [...] capsule by mouth daily. 05/10/2018 HYDROcodone-acetami nophen (Austin) 10-325 MG tablet Take 1 tablet by mouth every 6 hours as needed for severe pain for up to 3 days. 5 tablet 05/17/2025 05/20/20 25 documented as of this encounter Miscellaneous [...] Increased Goal: Skin Health and Integrity 05/18/2025 1131 by Kylee Gonzalez RN Outcome: Ongoing, Progressing 05/18/2025 1130 by Kylee Gonzalez RN Outcome: Ongoing, Progressing Problem: Adult Inpatient Plan of Care Goal: Plan of Care Review 05/18/2025 113 by Kylee Gonzalez RN Outcome: Ongoing, Progressing Flowsheets Taken 05/18/2025 1131 by Kylee Gonzalez RN Progress: improving Taken 05/17/2025 2153 by Ivan Slaughter RN Plan of Care Reviewed With: patient Taken 05/14/20252235 by Florina Hinojosa RN Outcome Evaluation: Reviewed of night plan of care with pt. pt verbalized understanding. 05/18/2025 1130 by Kylee Gonzalez RN Outcome: Ongoing, Progressing Flowsheets Taken 05/17/2025 215 by Ivan Slaughter RN Progress: improving Plan of Care Reviewed With: patient Taken 05/14/20252235 by Florina Hinojosa RN Outcome Evaluation: Reviewed of night plan of care with pt. pt verbalized understanding. Goal: Patient-Specific Goal (Individualized) 05/18/2025 1131 by Kylee Gonzalez RN Outcome: Ongoing, Progressing Flowsheets (Taken 05/18/2025 0900) Patient/Family-Specific Goals (Include Timeframe): Pt will remain free from falls/injury throughoutthis shift. Individualized Care Needs: Safety Anxieties, Fears or Concerns: None stated 05/18/2025 1130 by Kylee Gonzalez RN Outcome: Ongoing, Progressing Flowsheets (Taken 05/18/2025 0900) Patient/Family-Specific Goals (Include Timeframe): Pt will remain free from falls/injury throughoutthis shift. Individualized Care Needs: Safety Anxieties, Fears or Concerns: None stated Goal: Absence of Hospital-Acquired Illness or Injury 05/18/2025 1131 by Kylee Gonzalez RN Outcome: Ongoing, Progressing 05/18/2025 1130 by Kylee Gonzalez RN Outcome: Ongoing, Progressing Goal: Optimal Comfort and Wellbeing 05/18/2025 113 by Kylee oGnzalez RN Outcome: Ongoing, Progressing 05/18/2025 113 by Kylee Gonzalez RN Outcome: Ongoing, Progressing Problem: Fall Injury Risk Goal: Absence of Fall and Fall-Related Injury 05/18/2025 113 by Kylee Gonzalez RN Outcome: Ongoing, Progressing 05/18/2025 113 by Kylee Gonzalez RN Outcome: Ongoing, Progressing Intervention: Identify and Manage Contributors Flowsheets Taken 05/16/2025 194 by Ivan Slaughter RN Self-Care Promotion: independence encouraged Taken 05/06/20251999 by Judd Zavaleta RN Medication Review/Management: medications reviewed Problem: Infection Goal: Absence of Infection Signs and Symptoms 05/18/20251130 by Kylee Gonzalez RN Outcome: Ongoing, Progressing 05/18/2025 113 by Kylee Gonzalez RN Outcome: Ongoing, Progressing Intervention: Prevent or Manage Infection Flowsheets Taken 05/18/2025 0800 by Kylee Gonzalez RN Isolation Precautions: precautions maintained Taken 05/16/20251948 by Ivan Slaughter RN Infection Management: aseptic technique maintained Fever Reduction/Comfort Measures: lightweight bedding lightweight clothing Problem: Mobility Impairment Goal: Optimal Mobility 05/18/2025 113 by Kylee Gonzalez RN Outcome: Ongoing, Progressing 05/18/2025 113 by Kylee Gonzalez RN Outcome: Ongoing, Progressing Intervention: Optimize Mobility Flowsheets Taken 05/18/2025 08 by Kylee Gonzalez RN Activity Management: activity [...] Health Symptom Control 05/18/2025 1131 by Kylee Gonzalez, RN Outcome: Ongoing, Progressing 05/18/2025 1130 by Kylee Gonzalez, RN Outcome: Ongoing, Progressing Goal: Maintenance of COPD Symptom Control 05/18/2025 1131 by Kylee Gonzalez, RN Outcome: Ongoing, Progressing 05/18/2025 1130 by Kylee Gonzalez, RN Outcome: Ongoing, Progressing Goal: Blood Glucose Level Within Target Range 05/18/2025 1131 by Kylee Gonzalez, RN [...] Kylee Gonzalez, RN Outcome: Ongoing, Progressing Goal: Optimal Pain [...] provided Taken 05/17/2025 2228 by Ivan Slaughter RNmulti media specialist Interventions: medication (see MAR) Goal: Optimal Wound [...] (Taken 05/15/2025 1148 by Santy Garcia, RN) Oral Nutrition Promotion: physical activity promoted Nutrition [...] Goal: Optimal Pain Control and Function 05/18/2025 113 by Kylee Gonzalez RN Outcome: Ongoing, Progressing 05/18/2025 1130 by Kylee Gonzalez RN Outcome: Ongoing, Progressing Intervention: Optimize Psychosocial Wellbeing Flowsheets Taken 05/17/20252152 by Ivan Slaughter RN [...] Ongoing, Progressing Intervention: Promote Activity and Functional [place] Flowsheets Taken 05/18/2025 1131 by Kylee Gonzalez RN Activity Assistance Provided: assistance, 2 people Taken 05/16/2025 194 by Ivan Slaughter RN Self-Care Promotion: independence encouraged Taken 05/15/2025 1148 by Santy Garcia RN Adaptive Equipment Use: used independently * Discharge Summary - Wily Goyal DO - 05/18/2025 9:26 AM EST Images from the original note were not included. Hospitalization Admit Date/Time: 04/27/2025 9:29 PM Admitting Attending: Greg Lee Discharge Date: 05/18/25 Discharge Attending Physician: Wily Goyal DO PCP name and Address: Malcolm Hayward, CONCIERGE [address] [place] [address] / [place] [id number] Brief History of Present Illness 49 M [...] extremity. He was accepted for discharge to [facility] rehab facility. Urinary Retention and Recurrent UTI [...] He was medically stable for discharge to [facility] rehab facility, with recommendations for close follow-up [...] HYDROcodone-acetaminophen 10-325 MG tablet Commonly known as: Austin Take 1 tablet by mouth every 6 [...] the skin 1 time per week. Pen Pembroke 31G X 5 MM misc USE TO [...] Your Medications These medications were sent to [facility] [place] [address] [place] [address] gabapentin 600 MG tablet HYDROcodone-acetaminophen 10-325 MG tablet insulin regular 100 UNIT/ML injection vial insulin regular 500 UNIT/ML CONCENTRATED injection vial Information about where to get these medications is not yet available Ask your nurse or doctor about these medications ferrous sulfate 324 MG tablet delayed-release Discharge Diagnosis Medical Problems Active and Resolved Hospital Problems Hospital Morbid obesity ([facility]) Hypertension Type 2 diabetes Overview Signed [...] 9:30 AM AMBULANCE ADULT [facility] 05/30/2025 2:40 PM Sheila Marcano PA [facility] 06/14/2025 1:40 PM Divine Archer APRN [facility]OT[facility]BN[facility] 06/22/2025 1:40 PM Mary Vicente MD [facility] Pertinent Physical Exam At Time of Discharge [...] Note Gonzalo Smalls 49 y.o. male CSN: [id number] Admission: 04/27/2025 9:29 PM Primary Problem: Diabetic foot ulcer Primary Leasing Property Manager: Primary Caregiver: Self Assistance Available at Discharge: Availability of Care Givers (#Hours): 24 hours Housing Circumstances-Z Codes: Housing Circumstances (select all that apply): Low Income (101-300% Federal Poverty Guidlines) - Z596 Discharge Facility/Level of Care Needs: Discharge Facility/Level of Care Needs: 62-Rehab facilty ([place]) Patient's Choice of Community Agency(s): Patient's Choice of Community Agency(s): [facility] Patient/Family Anticipated Services at Transition: Patient/Family Anticipated [...] Recieved By: Gonzalo Smalls- the patient Follow-up: [facility] [address] 5th Floor [address] [facility] [id number] Primary care provider (PCP) Malcolm Hayward, CONCIERGE [address] [facility] [address] Discharge Transportation: Transportation Anticipated: medical transport Transportation [...] Araceli in admission who confirmed pt's acceptance #[phone]. Pt updated and in agreement with d/c plan. Team and bedside RN updated. Bedside RN to call report to #[phone]. Araceli has access to [facility] and [facility]. [facility] [place] Ambulance to transport the pt is arranged for 9:30AM on this day. There is no other d/c needs reported or identified at this time. LOLA TOVAR will remain availble and assist as needed. [...] Mobility Bed Mobility Exam: Scooting/Bridging Level of [place]: Contact guard Physical/Nonphysical Assist: Verbal Cues, Minimal cues Assistive Device: Overhead trapeze Bed Mobility Exam: Supine to Sit Level of [place]: Minimum assist (75% patient's effort) Physical/Nonphysical Assist: HOB elevated, Verbal Cues, Minimal cues Assistive Device: Overhead trapeze Bed Mobility Exam: Sit to Supine Level of [place]: Stand-by assist Physical/Nonphysical Assist: Verbal Cues, Minimal cues Assistive Device: Overhead trapeze Transfers Transfer Exam: Sit to stand Level of [place]: Maximum assist (25% patient's effort) Physical/Nonphysical Assist: Verbal Cues, Nonverbal cues (demo/gestures), Additional assist utilized for safety, Set-up required, Minimal cues Assistive Device: Walker, rolling (bariatric) Transfer Exam: Stand to Sit Level of [place]: Maximum assist (25% patient's effort) Physical/Nonphysical Assist: [...] at 3:09 PM. * Progress Notes - LizarragaCorey rodriguez Emerald IV - 05/17/2025 11:56 AM EST PHYSICAL [...] help from Spouse Level of Mobility Mobility [place] Independent gait with device History of Falls [...] go, I'm just nervous. Visitors Present No Nuclear Spectroscopist (if applicable) Nuclear Spectroscopist: Not Applicable OBJECTIVE PAIN Pt was without c/o pain at the beginning of this session and throughout the PT treatment. Prior to PETROLEUM INSPECTOR's departure: * rest was provided * patient [...] by this therapist: BED MOBILITY Level of [place] Physical/Non- physical Assist Adaptive Equipment Utilized Rolling/ Turning Contact guard Verbal Cues, Set-up required, Minimal cues Bed rails, Other (TECHNICAL PROFESSIONAL) Scooting/ Bridging Contact guard Verbal Cues, Minimal [...] breaks between standing trials. TRANSFERS Level of [place] Physical/Non- physical Assist Adaptive Equipment Utilized Sit [...] placement, sequencing, weight shifting, appropriate use of TECHNICAL PROFESSIONAL, and maintaining NWB on RLE. Tactile cues provided to assist in sequencing and weight shifting. AMBULATION Level of [place] Distance Adaptive Equipment Utilized Ambulation N/A N/A N/A Comments Unable to side step or progress to forward hop step at bariatric RW level due to inabilityto maintain prolonged standing position while maintaining NWB in RLE. BALANCE Postural Appearance Posture: Within Functional Limits, Forward head Level of [place] Balance Support Activities Static Sit Standby assist [...] Abduction * Ankle pumps x1-2 sec holds PETROLEUM INSPECTOR provided minimal verbal and tactile cueing to [...] overall. Standardized Assessments Standardized Assessments Standardized Assessments: [facility] 6-Clicks Mobility Assessment [facility] 6-Clicks Mobility Assessment Difficulty patient has turning [...] climbing 3-5 steps with a railing?: Unable [facility] 6-Clicks Mobility Assessment Total : 11 PATIENT / FAMILY EDUCATION Patient was educated regarding the PT POC and recommendations regarding discharge planning, as wellas progressively increased time spent out of bed/up to chair, and continued mobilization / ambulation with nursing staff as tolerated to promote increased activity tolerance and Endurance. PETROLEUM INSPECTOR providing verbal cues/demonstration for pursed-lip breathing technique to promote improved ventilation, decreased respiratory rate and energy conservation with activity. PETROLEUM INSPECTOR stressed to patient the importance of having [...] 3:35 PM. * Progress Notes - Wily Goyal DO - 05/17/2025 11:20 AM EST Subjective [...] has been following with urology outpatient at [facility]. They have postulated this [...] by Deepthi Herman RN Progress: improving Taken 05/16/20251948 by Ivan Slaughter RN Plan of Care Reviewed With: patient Taken 05/14/20256 by Florina Hinojosa RN Outcome Evaluation: Reviewed [...] Mobility Flowsheets Taken 05/17/2025 0800 by Deepthi Herman RN Activity Management: activity adjusted per tolerance Taken 05/16/20251999 by Ivan Slaughter RN Assistive Device Utilized: [...] Progressing Intervention: Optimize Psychosocial Wellbeing Flowsheets Taken 05/16/20251948 by Ivan Slaughter RN Supportive Measures: active [...] Ongoing, Progressing Intervention: Promote Activity and Functional [place] Flowsheets Taken 05/16/20251999 by Ivan Slaughter RN Activity Assistance Provided: assistance, 1 person Taken 05/16/20251948 by Ivan Slaughter RN Self-Care Promotion: independence encouraged Taken 05/15/2025 1148 by Santy Garcia, RN Adaptive Equipment Use: used independently * Progress Notes - Sugey Momin, CONCIERGE - 05/17/2025 10:29 AM EST Endocrine - [...] mellitus - type 2 -Home medications: CGM: Diamond Mind G7 Insulin regimen: U500 insulin: prescription for [...] -Diabetes education: completed 05/10 -Follow-up plan: home operator assistant i cementing - Dr Anette Kendall -Tentative discharge recommendations: -pt will need close monitoring by rehab facility provider as changes in diet and activity level maylead to changes in glycemic patterns and insulin requirement NOTE: -patient reports that once the new year hits, he worries about the cost of U500 insulin --> discussed cost through [employer] - should be able to get vials of U500 at $35 per vial. Also discussed contacting [employer] directly for the financial assistance program. -hopefully [...] team via secure chat or page us [phone] during 7a-7p, Thursday-Thursday. For after hours please [...] Ongoing, Progressing Intervention: Promote Activity and Functional [place] Flowsheets (Taken 05/16/20251948) Self-Care Promotion: independence encouraged * Progress Notes - Chayo Jennings RN - 05/16/2025 2:16 PM EST Case Management Adult Progress Note Gonzalo Smalls 49 y.o. male CSN: [id number] Admission: 04/27/2025 9:29 PM Primary Problem: Diabetic foot ulcer Anticipated Discharge Date: 05/18/25 Pt is in a need for rehab placement and was referred and accepted by Merly Espinoza- LOLA CM spoke with Araceli in admission, ph#[phone] who confirmed pts acceptance. Pt updated and in agreement with d/c plan. Ambulance for to transport he pt at d/c is arranged for 9:30AM on 05/18. Team updated.RN CM will continue to follow and assist as needed. Chayo Jennings RN * Consults - Vivian Garcia RN - 05/16/2025 1:08 PM ESTAssociated Order(s): IP CONSULT TO DIABETIC EDUCATION Adult Diabetes Education Team Note Gonzalo Smalls 49 y.o. male CSN: [id number] This is a 49 y.o. male patient was admitted to [facility] with the diagnosis of Diabetic [...] Hayward APRN, [facility] is Dr. Garvey in [place], [place]. Medication Education instructions given: The use [...] Prevention , pt reports he has a trolley cleaner as well Follow Ups: Provided with educational [...] 2/ weight - Consults: vascular, ID - S/P [...] has been following with urology outpatient at [facility]. They have postulated this [...] the video go to this web address: [email or web address] Or, scan this QR code with your [...] to gently smooth the nail. Have a trolley cleaner trim your nails if you can't see [...] remove corns, calluses, or warts by yourself. Ibbv-kqm-qjywnbk products can burn or damage your skin. [...] your primary care doctor or by a trolley cleaner. This is a doctor who specializes in foot care. Some diabetes centers have regular foot clinics. Last Reviewed Date: 2024 00:00:00 ?? 5682-6158 The [employer]. All rights reserved. This information is not intended as a substitute for professional medical care. Always follow your healthcare professional's instructions. * Ruy HoffmanMENG - Vivian Garcia RN - 05/16/2025 11:06 AM EST Images from the original note were not included. [address] Inspecting Your Feet (Diabetes) Okyp-yr-Icjy: Last Reviewed Date: 2024 00:00:00 ?? [id number] The [employer]. All rights reserved. This information is not intended as a substitute for professional medical care. Always follow your healthcare professional's instructions. * Progress Notes - Aileen Leonardo APRN - 05/16/2025 8:35 AM EST Endocrine - [...] (H) 05/14/2025 I reviewed bg tracing in epic glucose timeline 05/16/25 ASSESSMENT Hospital Course: Gonzalo [...] -Diabetes education: completed 05/10 -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 Also discussed contacting [employer] directly for the financial assistance program. -patient with plans to discharge to [facility] once able - need to check with [facility] to see if they are okay with utilizing U500 insulin if patient is able to bring in his own supply Insulin regimen - would like patient to utilize U500 home dosing at [facility] Continue Dexcom G7 CGM Likely continue [...] team via secure chat orpage us at [phone] during 7a-7p, Thursday-Thursday. For after hours please contact the on-call Endocrine Fellow. Thank you for the opportunity to participate in this patient's care. - Reviewed notes by primary team and consulting services to determine appropriate plan of care as in the note. - Discussed plan and management with patient and docking saw operator Time Spent: I personally spent a total [...] Note Gonzalo Smalls 49 y.o. male CSN: [id number] Room/Bed 117/117A Nutrition evaluation type: follow-up Reason [...] Supplemental oxygen O2 Delivery Method: Nasal cannula [place] Coma Scale Score: 15 Miguel Ángel Scale [...] Weight Evaluation: Extreme Obesity (BMI > 40) Wing Body Weight (kg): 80.9 Percent Wing Body Weight: 311 Adjusted Body Weight (kg): [...] Regular Adult Carbohydrate Restriction: Consistent CHO 2 (5302-5020 Steven, 80 g/meal) Adult Sodium Restriction: 2,000 mg Na Percent Meals Eaten (%): 75-100% of meals Diet Experience and Nutrition History: Diet Education Provided: Will monitor Pertinent home medications: Albuterol, Bumex, Insulin, Metformin, Ozempic, Aldactone Caodaism needs: Nutrition Focused Physical Exam: Physical exam [...] admission (ongoing) Acuity Level: 10 day Kylee Ann, RD, LD [1] Past Medical [...] Review Outcome: Ongoing, Progressing Flowsheets (Taken 05/16/2025 002) Progress: improving Plan of Care Reviewed With: [...] Support Wellbeing and Self-Management Success Flowsheets (Taken 05/16/2025 0022) Supportive Measures: active [...] has been following with urology outpatient at [facility]. They have postulated this to be related to his diabetes and have had several voiding trials which have failed. Also has un dergone proctoscopy (?) which was normal. 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 and he [...] plan and management with patient. Selin Lee Occupational Therapist Division of Hospital Medicine [facility] * Care Plan - Santy Garcia, RN - 05/15/2025 11:50 AM EST Problem: [...] Note Gonzalo Smalls 49 y.o. male CSN: [id number] Admission: 04/27/2025 9:29 PM Primary Problem: Diabetic foot ulcer Anticipated Discharge Date: TBD Pt was referred to many SNF in and out [facility]. Few SNF are considering accepting the pt along with [facility], ph#[phone]. LOLA TOVAR spoke with Araceli- admission at [facility]. Araceli is stating that she is checking if they can order lift needed for the pt and will call back. Team aware. LOLA TOVAR will continue to follow and assist as needed. Chayo Jennings RN * Progress Notes - Aileen Leonardo APRN - 05/15/2025 8:25 AM EST Endocrine - [...] (H) 05/13/2025 I reviewed bg tracing in [facility] glucose timeline 05/15/25 ASSESSMENT Hospital [...] -Diabetes education: completed 05/10 -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 Also discussed contacting [employer] directly for the financial assistance program. -patient with plans to discharge to [facility] once able - need to check with [facility] to see if they are okay with utilizing U500 insulin if patient is able to bring in his own supply Insulin regimen - would like patient to utilize U500 home dosing at [facility] Continue Dexcom G7 CGM Likely continue [...] team via secure chat orpage us at [phone] during 7a-7p, Thursday-Thursday. 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 Also discussed contacting [employer] directly for the financial assistance program. -patient with plans to discharge to [facility] once able - need to check with [facility] to see if they are okay with utilizing U500 insulin if patient is able to bring in his own supply Insulin regimen - would like patient to utilize U500 home dosing at [facility] Continue Dexcom G7 CGM Likely continue [...] via secure chat or page us at [phone] during 7a-7p, Thursday-Thursday. For after hours please [...] Care Review Outcome: Ongoing, Progressing Flowsheets (Taken 05/14/2025 0946) Progress: improving Plan of Care Reviewed With: patient Goal: Patient-Specific Goal (Individualized) Outcome: Ongoing, Progressing Flowsheets Taken 05/14/2025 0946 Individualized Care Needs: see MAR Taken 05/14/2025 0800 Patient/Family-Specific Goals (Include Timeframe): Patient will be [...] Progressing Intervention: Promote Wound Healing Flowsheets (Taken 05/14/2025 09) Sleep/Rest Enhancement: awakenings minimized consistent schedule promoted family presence promoted massage given noise level reduced natural light exposure provided regular sleep/rest pattern promoted relaxation techniques promoted room darkened Problem: Pain Acute Goal: Optimal Pain Control and Function Outcome: Ongoing, Progressing Problem: Self-Care Deficit Goal: Improved Ability to Complete Activities of Daily Living Outcome: Ongoing, Progressing Intervention: Promote Activity and Functional [place] Flowsheets Taken 05/14/2025 09 Self-Care Promotion: independence encouraged BADL personal objects within reach BADL personal routines maintained meal set-up provided Taken 05/14/2025 0800 Activity Assistance Provided: assistance, stand-by assistance, 2 people Taken 05/13/2025 09 Adaptive Equipment Use: used independently Problem: Self-Care Deficit Goal: Improved Ability to Complete Activities of Daily Living Outcome: Ongoing, Progressing Intervention: Promote Activity and Functional [place] Flowsheets Taken 05/14/202546 Self-Care Promotion: independence encouraged BADL personal objects [...] has been following with urology outpatient at [facility]. They have postulated this to be related to his diabetes and have had several voiding trials which have failed. Also has un dergone proctoscopy (?) which was normal. 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 and he [...] plan and management with patient. Selin Lee Occupational Therapist Division of Hospital Medicine [facility] * Care Plan - Asiya Nix RN [...] Level Within Target Range 05/13/20252153 by Asiya Nix, LOLA Outcome: Ongoing, Progressing Note: Blood sugar monitored 05/13/20252150 by Asiya Nix RN Outcome: Ongoing, Progressing Goal: Minimize Hypoglycemia Risk 05/13/20252153 by Asiya Nix RN Outcome: Ongoing, Progressing 05/13/20252150 by Asiya Nix RN Outcome: Ongoing, Progressing Problem: Comorbidity Management Goal: Maintenance of Asthma Control 05/13/20252153 by Asiya Nix RN Outcome: Ongoing, Progressing Note: Oxygen therapy provided 05/13/20252150 by Asiya NixLOLA Outcome: Ongoing, Progressing Goal: Maintenance of Behavioral [...] Ongoing, Progressing Intervention: Promote Activity and Functional [place] Flowsheets (Taken 05/13/20251999) Activity Assistance Provided: assistance, [...] mellitus - type 2 -Home medications: CGM: Diamond Mind G7 Insulin regimen: U500 insulin: prescription for [...] -Diabetes education: completed 05/10 -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 Also discussed contacting [employer] directly for the financial assistance program. -patient with plans to discharge to [facility] once able - need to check with [facility] to see if they are okay with utilizing U500 insulin if patient is able to bring in his own supply Insulin regimen - would like patient to utilize U500 home dosing at [facility] Continue Dexcom G7 CGM Likely continue [...] via secure chat or page us at [phone] during 7a-7p, Thursday-Thursday. For after hours please [...] Care Review Outcome: Ongoing, Progressing Flowsheets (Taken 05/13/2025 09) Progress: improving Plan of Care Reviewed With: [...] Progressing Intervention: Promote Wound Healing Flowsheets (Taken 05/13/2025 0931) Sleep/Rest Enhancement: awakenings minimized regular sleep/rest pattern promoted natural light exposure provided relaxation techniques promoted consistent schedule promoted noise level reduced room darkened Problem: Pain Acute Goal: Optimal Pain Control and Function Outcome: Ongoing, Progressing Problem: Self-Care Deficit Goal: Improved Ability to Complete Activities of Daily Living Outcome: Ongoing, Progressing Intervention: Promote Activity and Functional [place] Flowsheets Taken 05/13/2025 0931 Adaptive Equipment Use: used independently Self-Care Promotion: [...] has been following with urology outpatient at [facility]. They have postulated this to be related to his diabetes and have had several voiding trials which have failed. Also has un dergone proctoscopy (?) which was normal. 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 and he [...] plan and management with patient. Selin Lee Occupational Therapist Division of Hospital Medicine [facility] * Care Plan - Genaro Haritha M - 05/12/2025 9:30 PM EDT Problem: Skin [...] Ongoing, Progressing Intervention: Promote Activity and Functional [place] Flowsheets (Taken 05/12/20252128) Activity Assistance Provided: assistance, 2 people Self-Care Promotion: independence encouraged BADL personal objects within reach BADL personal routines maintained meal set-up provided * Progress Notes - Max Alexander - 05/12/2025 4:32 PM EDT Case Management Adult Progress Note Gonzalo Smalls 49 y.o. male CSN: [id number] Admission: 04/27/2025 9:29 PM Primary Problem: Diabetic foot ulcer Anticipated Discharge Date: TBD Plan of care reviewed with pt's care team; and per MD, pt is medically ready for discharge pending placement. SW sent 145 Referral via [facility]. SW will continue to follow-up with pt's MD and care team on their progress and discharge plan. Max Alexandre, REINSTATEMENT CLERK, PUBLIC RELATIONS OFFICER Senior Director Of Consumer Affairs/Case Management [facility] * Progress Notes - Selin Lee [...] CT showing possible OMunable to do MRI / weight - Consults: vascular, ID - S/p [...] has been following with urology outpatient at [facility]. They have postulated this to be related to his diabetes and have had several voiding trials which have failed. Also has un dergone proctoscopy (?) which was normal. 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 and he [...] plan and management with patient. 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 Also discussed contacting [employer] directly for the financial assistance program. -patient with plans to discharge to [facility] once able - need to check with [facility] to see if they are okay with utilizing U500 insulin if patient is able to bring in his own supply Insulin regimen - would like patient to utilize U500 home dosing at [facility] Continue Dexcom G7 CGM Likely continue [...] via secure chat or page us at [phone] during 7a-7p, Thursday-Thursday. For after hours please [...] remission, Anxiety disorder, unspecified, Arthritis, Atrial fibrillation ([facility]), CAP (community acquired pneumonia) (05/19/2024), Cellulitis [...] understanding. Participants in Care Family/Caregiver Present: No Nuclear Spectroscopist: Not Applicable Presentation Oxygen Therapy: Supplemental oxygen [...] has access to / assistance at discharge. Prior Level of Function Receives Help From: Spouse Mobility [place]: Independent gait with device ADL Performance: Needs assistance Bathing: Needs assist Upper Body Dressing: Needs assist Lower Body Dressing: Needs assist Grooming: Needs assist Toileting: Independent Eating: Independent Home Management Skills: Needs assist Patient/Family Goals Return home at [facility] Objective Pain Pt reported 7/10 pain [...] Mobility Bed Mobility Exam: Scooting/Bridging Level of [place]: Contact guard (scooting hips forward to edge of bed) Physical/Nonphysical Assist: Verbal Cues, Minimal cues Assistive Device: Overhead trapeze Bed Mobility Exam: Supine to Sit Level of [place]: Minimum assist (75% patient's effort) Physical/Nonphysical Assist: HOB elevated, Verbal Cues Assistive Device: Overhead trapeze Bed Mobility Exam: Sit to Supine Level of [place]: Stand-by assist Physical/Nonphysical Assist: Verbal Cues, Minimal cues Assistive Device: Overhead trapeze Transfers Transfer Exam: Sit to stand Level of [place]: Maximum assist (25% patient's effort) (x3 reps from edge of bed, good adherence to NWB RLE) Physical/Nonphysical Assist: Verbal Cues, Nonverbal cues (demo/gestures), Additional assist utilized for safety Assistive Device: Walker, rolling (bariatric) Transfer Exam: Stand to Sit Level of [place]: Maximum assist (25% patient's effort) Physical/Nonphysical Assist: [...] \ Standardized Assessments Standardized Assessments Standardized Assessments: [facility] 6-Clicks Mobility Assessment [facility] 6-Clicks Mobility Assessment Difficulty patient has turning [...] climbing 3-5 steps with a railing?: Unable [facility] 6-Clicks Mobility Assessment Total : 11 Assessment [...] remission, Anxiety disorder, unspecified, Arthritis, Atrial fibrillation ([facility]), CAP (community acquired pneumonia) (05/19/2024), Cellulitis [...] session. Participants in Care Family/Caregiver Present: No Nuclear Spectroscopist: Not Applicable Presentation Oxygen Therapy: Supplemental oxygen [...] sensation in feet. Pt has access to 24/ assistance at discharge. Prior Level of Function Receives Help From: Spouse Mobility [place]: Independent gait with device ADL Performance: Needs [...] Mobility Bed Mobility Exam: Scooting/Bridging Level of [place]: Contact guard (scooting hips forward to edge of bed) Physical/Nonphysical Assist: Verbal Cues, Minimal cues Bed Mobility Exam: Supine to Sit Level of [place]: Minimum assist (75% patient's effort) Physical/Nonphysical Assist: HOB elevated, Verbal Cues Assistive Device: Overhead trapeze Bed Mobility Exam: Sit to Supine Level of [place]: Stand-by assist Physical/Nonphysical Assist: Verbal Cues, Minimal cues Assistive Device: Overhead trapeze Transfers Transfer Exam: Sit to stand Level of [place]: Maximum assist (25% patient's effort) (x3 reps from edge of bed, good adherence to NWB RLE) Physical/Nonphysical Assist: Verbal Cues, Nonverbal cues (demo/gestures), Additional assist utilized for safety Assistive Device: Walker, rolling (bariatric) Transfer Exam: Stand to Sit Level of [place]: Maximum assist (25% patient's effort) Physical/Nonphysical Assist: [...] upper extremity support, Left upper extremity support ([facility] RW) Static Standing-Level of Assistance: Maximum assistance [...] x3 reps of sit to stand to [facility] RW with max Ax2 persons each time, able [...] Where Assessed: Other (Comment) (in stance at [facility] RW level) Toileting Interventions: Pt with small incontinent BM, required dep A for hygiene to buttocks in stance at isabella RW level with assistance from 2nd person needed [...] a helper. 5 Set-up or Clean-up Assistance [place] sets up or cleans up; patient completes activity. [place] assists only prior to or following the activity. 4 Supervision or touching assistance [place] provides verbal cues and/or touching/steadying and/or contact guard assistance as patient completes activity. Assistance may be provided throughout the activity or intermittently. 3 Partial/Moderate Assistance [place] does LESS THAN HALF the effort. [place] lifts, holds or supports trunk or limbs, but provides less than half the effort. 2 Substantial/Maximal Assistance [place] does MORE THAN HALF the effort. Summit lifts or holds trunkor limbs and provides more than half the effort. 1 Dependent [place] does ALL of the effort. Patient does [...] Note Gonzalo Smalls 49 y.o. male CSN: [id number] Admission: 04/27/2025 9:29 PM Primary Problem: Diabetic foot ulcer Anticipated Discharge Date: TBD RN CM informed by bedside RN that pt's weight was obtained and current weight is 244.3kg (538.5 lbs)- due to pt being over 500 lbs [facility] is not able to accept the pt- [...] Note Gonzalo Smalls 49 y.o. male CSN: [id number] Admission: 04/27/2025 9:29 PM Primary Problem: Diabetic foot ulcer Anticipated Discharge Date: TBD LOLA TOVAR f/ u with [facility]- admission at [facility]. [facility] is stating that they might be able to accept the pt if under 500lbs. Team and bedside RN updated. Bedside RN will attempt to obtain pt's current weight. RN LA will continue to follow. 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 Also discussed contacting [employer] directly for the financial assistance program. -patient with plans to discharge to [facility] once able - need to check with [facility] to see if they are okay with utilizing U500 insulin if patient is able to bring in his own supply Insulin regimen - would like patient to utilize U500 home dosing at [facility] Continue Dexcom G7 CGM Likely continue [...] via secure chat or page us at [phone] during 7a-7p, Thursday-Thursday. For after hours please [...] Intervention: Promote Wound Healing Flowsheets (Taken 05/11/2025 0900) Sleep/Rest Enhancement: awakenings minimized reading promoted consistent [...] has been following with urology outpatient at [facility]. They have postulated this to be related to his diabetes and have had several voiding trials which have failed. Also has un dergone proctoscopy (?) which was normal. 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 and he [...] [facility] labs, [facility]als[facility]. Current condition is not [...] plan and management with patient. Selin Lee Occupational Therapist Division of Hospital Medicine [facility] * Care Plan - Haritha Lam Yehuda [...] Intervention: Promote Wound Healing Flowsheets (Taken 05/10/2025 2238) Sleep/Rest Enhancement: awakenings minimized consistent schedule promoted [...] has been following with urology outpatient at [facility]. They have postulated this to be related to his diabetes and have had several voiding trials which have failed. Also has un dergone proctoscopy (?) which was normal. 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 and he [...] [facility]. Current condition is not at [...] plan and management with patient. Selin Lee Occupational Therapist Division of Hospital Medicine [facility] * Progress Notes - Chayo Jennings RN - 05/10/2025 8:59 AM EDT Case Management Adult Progress Note Gonzalo Smalls 49 y.o. male CSN: [id number] Admission: 04/27/2025 9:29 PM Primary Problem: Diabetic foot ulcer Anticipated Discharge Date: TBD LOLA TOVAR f/u on [facility] referral and was told that [facility] physician declined pt's acceptance to [facility]. RN CMvisited with the pt this morning to discuss d/c plan. Pt is in agreement to be referred to [facility]- referral to [facility] initiated on this day. Team aware. LOLA TOVAR will continue to follow and assist with d/c plan and as needed. 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 Also discussed contacting [employer] directly for the financial assistance program. -patient with plans to discharge to [facility] once able - need to check with [facility] to see if they are okay with utilizing U500 insulin if patient is able to bring in his own supply Insulin regimen - would like patient to utilize U500 home dosing at [facility] Continue Dexcom G7 CGM Likely continue [...] team via secure chat orpage us at [phone] during -7p, Thursday-Thursday. For after hours please [...] Intervention: Promote Wound Healing Flowsheets (Taken 05/10/2025 24) Sleep/Rest Enhancement: consistent schedule promoted natural light [...] per tolerance Taken 05/08/2025 0600 by Judd Zavaleta RN Head of Bed (HOB) Positioning: HOB elevated Taken 05/06/20251999 by Judd Zavaleta RN Pressure Reduction Devices: positioning supports utilized [...] sit <> stand transfers Visitors Present none Nuclear Spectroscopist (if applicable) N/a OBJECTIVE PAIN Pt endorses [...] Mobility Bed Mobility Exam: Scooting/Bridging Level of [place]: Stand-by assist Physical/Nonphysical Assist: Verbal Cues, Minimal cues Assistive Device: Overhead trapeze Bed Mobility Exam: Supine to Sit Level of [place]: Stand-by assist Physical/Nonphysical Assist: Verbal Cues, Minimal cues, HOB elevated Assistive Device: Overhead trapeze Bed Mobility Exam: Sit to Supine Level of [place]: Stand-by assist Physical/Nonphysical Assist: Verbal Cues, Minimal cues Assistive Device: Overhead trapeze Transfers Transfer Exam: Sit to stand Level of [place]: Maximum assist (25% patient's effort) Physical/Nonphysical Assist: Set-up required, Additional assist utilized for safety, Maximal cues, Verbal Cues, Nonverbal cues (demo/gestures) Assistive Device: Hand held assist Transfer Exam: Stand to Sit Level of [place]: Maximum assist (25% patient's effort) Physical/Nonphysical Assist: [...] session Participants in Care Family/Caregiver Present: No Nuclear Spectroscopist: Not Applicable Presentation Oxygen Therapy: Supplemental oxygen [...] sequencing Bed Mobility Exam: Scooting/Bridging Level of [place]: Stand-by assist Physical/Nonphysical Assist: Verbal Cues, Minimal cues Assistive Device: Overhead trapeze Bed Mobility Exam: Supine to Sit Level of [place]: Stand-by assist Physical/Nonphysical Assist: Verbal Cues, Minimal cues, HOB elevated Assistive Device: Overhead trapeze Bed Mobility Exam: Sit to Supine Level of [place]: Stand-by assist Physical/Nonphysical Assist: Verbal Cues, Minimal [...] placement, sequencing, weight shifting, appropriate use of TECHNICAL PROFESSIONAL, and maintaining NWB on LLE. Tactile cues provided to assist in sequencing and weight shifting. Transfer Exam: Sit to stand Level of [place]: Maximum assist (25% patient's effort) Physical/Nonphysical Assist: Set-up required, Additional assist utilized for safety, Maximal cues, Verbal Cues, Nonverbal cues (demo/gestures) Assistive Device: Hand held assist Transfer Exam: Stand to Sit Level of [place]: Maximum assist (25% patient's effort) Physical/Nonphysical Assist: [...] assistance Static Standing - Interventions: Standing w TECHNICAL PROFESSIONAL Therapeutic Activity (40 minutes) See bed mobility, balance, and transfers sections for more detail. Standardized Assessments [facility] 6-Clicks Mobility Assessment Difficulty patient has turning [...] climbing 3-5 steps with a railing?: Unable [facility] 6-Clicks Mobility Assessment Total : 13 Assessment [...] Martinez, PT, DPT * Consults - Kylee nAn RD - 05/09/2025 8:22 AM EDT Adult Nutrition Evaluation Note Gonzalo Smalls 49 y.o. male CSN: [id number] Room/Bed 117/117A Nutrition evaluation type: follow-up Reason [...] Weight Evaluation: Extreme Obesity (BMI > 40) Wing Body Weight (kg): 80.9 Percent Wing Body Weight: 311 Adjusted Body Weight (kg): [...] Regular Adult Carbohydrate Restriction: Consistent CHO 2 ([id number] Steven, 80 g/meal) Adult Sodium Restriction: 2,000 mg Na Percent Meals Eaten (%): 100% of meals Diet Experience and Nutrition History: Diet Education Provided: Will monitor Pertinent home medications: Albuterol, Bumex, Insulin, Metformin, Ozempic, Aldactone Caodaism needs: Nutrition Focused Physical Exam: Physical exam [...] during admission (ongoing) Acuity Level: 1 Kylee Ann, RD, LD [...] chloride * Progress Notes - Lynda Choudhury, ADALGISA - 05/09/2025 8:09 AM EDT Endocrine - [...] this coming week -Endocrine pharmacist corresponded with [facility] to [...] dispensed 04/17/2025 Novolog mix last dispensed 02/22/2025 Mckenzie Did not tolerate Mounjaro due to GI [...] continue to assess need -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 For after hours please [...] has been following with urology outpatient at [facility]. They have postulated this to be related to his diabetes and have had several voiding trials which have failed. Also has un dergone proctoscopy (?) which was normal. 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 and he [...] Ready for Discharge:Ready now, awaiting placement to [facility] Selin Lee Occupational Therapist Division of Hospital Medicine [facility] * Care Plan - Checo Monson - 05/08/2025 11:24 PM EDT Problem: Skin Injury Risk Increased Goal: Skin Health and Integrity Outcome: Ongoing, Progressing Intervention: Optimize Skin Protection Flowsheets Taken 05/08/20252045 by Checo Monson Activity Management: activity adjusted per tolerance Taken 05/08/2025 0600 by Judd Zavaleta, RN Head of Bed (HOB) Positioning: HOB elevated Taken 05/06/20251999 by Judd Zavaleta RN Pressure Reduction Devices: positioning supports utilized [...] Ongoing, Progressing * Progress Notes - Lynda Choudhury, CONCIERGE - 05/08/2025 5:30 PM EDT Endocrine - [...] (H) 05/06/2025 I reviewed bg tracing in [facility] glucose timeline 05/08/25 ASSESSMENT Hospital Course: Gonzalo [...] continue to assess need -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 For after hours please [...] Note Gonzalo Smalls 49 y.o. male CSN: [id number] Admission: 04/27/2025 9:29 PM Primary Problem: Diabetic [...] acute rehab. RNCM awaiting MD approval from [facility]. Liaison will reach out with answer. Will continue to follow. RNCM will continue to monitor for further discharge needs. Mayra Apodaca RN * Care Plan - Jeevan Shah RN - 05/08/2025 12:43 PM EDT Problem: Wound Goal: Optimal Wound Healing Outcome: Ongoing, Progressing Intervention: Promote Wound Healing Note: See recs, cont wound vac Patient evaluated by [facility] nurse, individualized recommendations placed and care [...] 05/08/2025 10:19 AM Wound Image Wound Assessment [place];Red (moist) Margins Well-defined edges Saba-Wound Assessment Intact [...] RN CWOCN 05/08/2025 12:39 PM * Thi Chavarria, RN - 05/08/2025 10:55 AM EDT Images from the original note were not included. Low-Carb Diets: How Do They Work - Video Watch this video to learn about the health benefits of a low carb diet. To view the video go to this web address: [email or web address] Or, scan this QR code with your smart phone ?? [employer] * Thi Chavarria, RN - 05/08/2025 10:55 AM EDT Images from the original note were not included. Type 2 diabetes: 7 Ways to Prevent Mud Car Worker Complications - Video Watch this video to understand that having type 2 diabetes can lead to long-term complications if it is not managed correctly. To view the video go to this web address: [email or web address] Or, scan this QR code with your smart phone ?? [employer] * Thi Chavarria, RN - 05/08/2025 10:55 AM EDT Images from the original note were not included. Diabetes: Daily Foot Check - Video Watch this video to learn how diabetes affects the feet and how to do daily foot checks. To view the video go to this web address: [email or web address] Or, scan this QR code with your smart phone ?? [employer] * Ruy Baires - Thi Carmona, RN - 05/08/2025 10:55 AM EDT Images [...] to gently smooth the nail. Have a trolley cleaner trim your nails if you can't see [...] remove corns, calluses, or warts by yourself. Xajv-ndg-ifwzuqy products can burn or damage your skin. [...] your primary care doctor or by a trolley cleaner. This is a doctor who specializes in foot care. Some diabetes centers have regular foot clinics. Last Reviewed Date: 2024 00:00:00 ?? [id number] The [employer]. All rights reserved. This information is not intended as a substitute for professional medical care. Always follow your healthcare professional's instructions. * Ruy Baires - Thi Carmona, RN - 05/08/2025 10:55 AM EDT Images from the original note were not included. What is Type 2 Diabetes? - Video Watch this clip to understand what happens within your body when you have type 2 diabetes, and the importance of keeping your blood glucose levels within a healthy range. To view the video go to this web address: [email or web address] Or, scan this QR code with your smart phone ?? [employer] [facility] * Consults - Beatriz Hu DO - 05/08/2025 8:38 AM EDTAssociated Order(s): Inpatient consult to Urology Inpatient consult to Urology Consult performed by: Beatriz Hu DO Consult ordered by: Diane Guzman MD [facility] Urology Consult Note 05/08/25 Service Requesting Consultation: Hospital Medicine CC: urinary retention HPI: Gonzalo Smalls is a 49 y.o. male with a past urologic history of urinary retention, recurrent UTIs,BPH, morbid obesity who presented to [facility] ED with diabetic foot ulcer. [...] states. After this he presented to an [facility] urologist Dr. Painting who stated to [...] (NEURONTIN) 600 mg, 3 times daily HYDROcodone-acetaminophen ([place]) 10-325 MG tablet 1 tablet, Every 6 hours PRN Insulin Pen Needle (Pen [place]) 31G X 5 MM mis USE TO [...] obesity and uncontrolled diabetes who presented to [facility] ED with diabetic foot ulcer. [...] states. After this he presented to an [facility] urologist Dr. Painting who stated to [...] established care with a Dr. Mendenhall an [facility] urologist as this is closer to home and he does not wish to FU with urology. Plan: - No urologic intervention indicated at this time - Would recommend continuing indwelling barber with exchanges every 4-6 weeks for chronic urinary retention - Recommend preventing constipation - Recommend glucose control per primary - Patient states that he has now established care with a Dr. Abdirashid bob [facility] urologist as this is closer to [...] has been following with urology outpatient at [facility]. They have postulated this to be related to his diabetes and have had several voiding trials which have failed. Also has un dergone proctoscopy (?) which was normal. 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 and he [...] Mobility Bed Mobility Exam: Scooting/Bridging Level of [place]: Stand-by assist Physical/Nonphysical Assist: Verbal Cues Bed Mobility Exam: Supine to Sit Level of [place]: Contact guard Physical/Nonphysical Assist: Set-up required, Verbal Cues, Minimal cues Bed Mobility Exam: Sit to Supine Level of [place]: Minimum assist (75% patient's effort) Physical/Nonphysical Assist: Set-up required, Verbal Cues, Minimal cues Transfers Transfer Exam: Sit to stand Level of [place]: (Pt attempted with use of bariatric RW; [...] return to supine. Therapeutic Exercise Access Code: [email or web address] HEP printed and pt received copy with [...] provided based on observable deficits.* Level of [place] Interventions Grooming Patient demo's adequate BUE strength/ROM [...] maintain WB status. FUNCTIONAL MOBILITY Level of [place] Physical/Non-physical Assist Adaptive Equipment Utilized Scooting/ Bridging [...] Appearance Posture: Within Functional Limits Level of [place] Balance Support Static Sit Standby assist Feet supported Dynamic Sit Standby assisst Feet supported THERAPEUTIC EXERCISE INTERVENTIONS (10 minutes) Treatment Details The patient was educated re: implementation of BUE HEP in order to target muscle groups necessary for functional mobility and ADL independence. HEP printed and each exercise reviewed, pt verbalized understanding. [facility] Access Details (if appropriate) Access Code: [email or web address] URL: [email or web address] Date: 05/07/25 Exercises Included - Seated Elbow [...] Progressing Flowsheets (Taken 05/06/20251999 by Judd Zavaleta, RN) Progress: improving Plan of Care Reviewed [...] has been following with urology outpatient at [facility]. They have postulated this to be related to his diabetes and have had several voiding trials which have failed. Also has un dergone proctoscopy (?) which was normal. 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 and he [...] now * Progress Notes - Aileen Leonardo, CONCIERGE - 05/07/2025 7:33 AM EDT Endocrine - [...] insulin regimen -assisted patient with downloading dexcom Socialeyes App7 pooja on new phone. 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 For after hours please [...] Ongoing, Progressing Flowsheets (Taken 05/05/20251999 by Judd Zavaleta RN) Patient/Family-Specific Goals (Include [...] has been following with urology outpatient at [facility]. They have postulated this to be related to his diabetes and have had several voiding trials which have failed. Also has un dergone proctoscopy (?) which was normal. 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 For after hours please [...] is in abx, has his CHG and [place] wipes done in this shift Problem: Mobility [...] vascular surgery; wound vac applied 05/03 by [facility] Wound Assessment: Wound 05/01/25 Surgical Toe (Comment which one) Anterior;Right (Active) Date First Assessed/Time First Assessed: 05/01/25 0805 Present on Original Admission: No Hand Hygiene Completed: Yes Primary Wound Type: Surgical Location: Toe (Comment which one) Wound Location Orientation: Anterior;Right Assessments 05/05/2025 11:44 AM Wound Image Wound Assessment Bucks;Red (moist , full thickness) Margins Well-defined edges [...] no orders noted for wound vac, maessaged [facility] team for guidance. Orders placedfor [...] wound vac in use Patient evaluated by [facility] nurse, individualized recommendations placed and care plan interventions updated; see wound care note for details regarding recommendations to support optimal wound healing. * Progress Notes - Mayra Apodaca RN - 05/05/2025 12:30 PM EDT Case Management Adult Progress Note Gonzalo Smalls 49 y.o. male CSN: [id number] Admission: 04/27/2025 9:29 PM Primary Problem: Diabetic [...] No MDRO isolated 04/27/25 Blood culture NGTD [facility] Culture Data: - 04/25/25: [...] pathology. Patient is planned to discharge to [facility]. Recommend close follow-up with vascular surgery [...] PA-C Division of Infectious Diseases Available by [employer] History, assessment, and plan discussed with ID [...] Marjorie Myers MD 5 mg at 05/05/25 0907 bumetanide (Bumex) tablet 4 mg 4 mg [...] Daily Marjorie Myers MD 120 mg at 848 gabapentin (Neurontin) [...] 44 Units Subcutaneous TID with meals Martina Foote PA Insulin Lispro (Admelog, HumaLOG) 100 UNIT/ML injection 8 Units 8 Units Subcutaneous BID PRN Sarah Martinez APRN insulin NPH (Isophane) (HumuLIN N,NovoLIN N) injection [...] (H) 05/03/2025 I reviewed bg tracing in [facility] glucose timeline 05/05/25 ASSESSMENT Hospital Course: Gonzalo [...] mellitus - type 2 -Home medications: CGM: [employer] Mind G7 Insulin regimen: U500 insulin: prescription for [...] education: continue to assess need -Follow-up plan: [facility] -Tentative discharge recommendations: Insulin regimen - TBD Continue Dexcom G7 CGM Likely continue Ozempic Likely continue metformin May substitute for therapeutic equivalent per insurance and retail PharmD approval -Supplies/scripts needed: Ensure patient has working glucose meter and supplies as back-up to CGM DM/Endo team will continue to follow. Please notify us as patient nears discharge for final recommendations [facility] Please contact [facility] [address] [place] Adult Inpatient Diabetes team via secure chat or page us at [phone] during 7a-7p, Thursday-Thursday. For after hours please [...] Risk Increased Goal: Skin Health and Integrity 05/05/2025 0118 by Cassie Gilliam Outcome: Ongoing, Progressing 05/05/2025 0111 by Cassie Gilliam Outcome: Ongoing, Progressing Intervention: Optimize Skin Protection Flowsheets Taken 05/05/2025 0118 Activity Management: activity adjusted per tolerance Pressure Reduction Techniques: frequent weight shift encouraged weight shift assistance provided Pressure Reduction Devices: positioning supports utilized specialty bed utilized Skin Protection: incontinence pads utilized Taken 05/05/2025 0000 Head of Bed (HOB) Positioning: HOB elevated Intervention: Promote and Optimize Oral Intake Flowsheets (Taken 05/05/2025117) Nutrition Interventions: food preferences provided * Care [...] Progressing * Progress Notes - Chauncey Elena D - 05/04/2025 2:27 PM EDT Physical Therapy [...] precautions. Bed Mobility Exam: Rolling/Turning Level of [place]: Contact guard Physical/Nonphysical Assist: Verbal Cues, Moderate cues Bed Mobility Exam: Scooting/Bridging Level of [place]: Stand-by assist Bed Mobility Exam: Supine to Sit Level of [place]: Contact guard Physical/Nonphysical Assist: Verbal Cues Bed Mobility Exam: Sit to Supine Level of [place]: Stand-by assist Patient performed rolling bilaterally for placement of lift pad. Transfers Transfer Exam: Sit to stand Level of [place]: (Patient unable to perform without engaging right [...] promote tempo and full ROM. Standardized Assessments [facility] 6-Clicks Mobility Assessment Difficulty patient has turning [...] climbing 3-5 steps with a railing?: Unable [facility] 6-Clicks Mobility Assessment Total : 12 Assessment [...] help from Spouse Level of Mobility Mobility [place] History of Falls ADL Performance Needs assistance [...] to therapy this date. Visitors Present No Nuclear Spectroscopist (if applicable) OBJECTIVE PAIN Pain Score (0-10): [...] sba for bed mobility tasks. Level of [place] Adaptive Equipment Utilized Comments Feeding Grooming Setup washing face/hands Bathing Upper Body Dressing Lower Body Dressing Shoe Level of Assistance: Dependent Toileting IADLs Health Management Community Re-Entry BALANCE Postural Appearance INTERVENTIONS Level of [place] Balance Support Comments Static Sit Standby assist [...] weight shifting to promote safety. Level of [place] Physical/Non-physical Assist Adaptive Equipment Utilized Rolling/ Turning [...] JOINT INFECTIOUS DISEASE PROGRESS NOTE 05/04/2025 SUBJECTIVE: FRANCOISEO, patient seen and evaluated this afternoon with [...] No MDRO isolated 04/27/25 Blood culture NGTD [facility] Culture Data: - 04/25/25: [...] PA-C Division of Infectious Diseases Available by [employer] Chat History, assessment, and plan discussed with [...] Marjorie Myers MD 3 mg at 05/03/25922 cefepime (Maxipime) 2 g in sodium chloride 0.9% 100 mL IVPB (vial adapter required) 2 g [id number] [place], Diane E, MD 36.7 mL/hr at 05/03/25 2354 2 g at 05/03/25 2354 DAPTOmycin (Cubicin) 1,500 mg in sodium chloride 0.9 % 100 mL IVPB 10 mg/kg (Adjusted) Intravenous q24h Marjorie Myers MD 280 mL/hr at 05/03/251810 1,500 mg at 05/03/25 181 glucose (Glutose) 40 % oral gel 15-30 [...] night Marjorie Myers MD 2 Units at 05/04/258 Insulin Lispro (Admelog, HumaLOG) 100 UNIT/ML injection 30 Units 30 Units Subcutaneous TID with meals Martinez, Sarah P, CONCIERGE 30 Units at 05/03/251810 Insulin Lispro (Admelog, HumaLOG) 100 UNIT/ML injection 8 Units 8 Units Subcutaneous BID PRN Martinez,Sarah P, CONCIERGE insulin NPH (Isophane) (HumuLIN N,NovoLIN N) injection 50 Units 50 Units Subcutaneous BID Martinez, Sarah P, CONCIERGE 50 Units at 05/03/252043 ipratropium-albuterol (Duo-Neb) 0.5-2.5 [...] Marjorie Myers MD 17 g at 05/03/25 09 rivaroxaban (Xarelto) tablet 20 mg 20 mg Oral Daily with dinner Diane Guzman MD 20 mg at 05/03/25 1810 sodium chloride 0.9 % flush 10 mL 10 mL Intravenous q12h Marjorie Myers MD 10 mL at 05/03/25 1841 And sodium chloride 0.9 % flush 10 [...] Marjorie Myers MD 150 mg at 05/03/25 0921 [2] Allergies Allergen Reactions Vancomycin Other - please document in the comment field Red man syndrome * Progress Notes - Aileen Leonardo, CONCIERGE - 05/04/2025 8:37 AM EDT Endocrine - [...] Orders (From admission, onward) Start Ordered 05/02/25 141 Adult diet Diet texture: Regular; Carbohydrate restriction: [...] (H) 05/02/2025 I reviewed bg tracing in [facility] glucose timeline 05/04/25 ASSESSMENT Hospital [...] continue to assess need -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 For after hours please [...] Progressing Intervention: Optimize Skin Protection Flowsheets Taken 05/03/20251841 by Kylee Gonzalez RN Activity Management: activity encouraged activity adjusted per tolerance up in chair Taken 05/03/2025 1400 by Kylee Gonzalez RN Head of Bed (HOB) Positioning: HOB elevated Taken 05/02/2025 1820 by Santy Garcia, RN Skin Protection: incontinence pads utilized Taken 05/02/2025 1259 by Jeevan Shah RN Pressure Reduction Devices: specialty bed utilized Taken 04/30/2025 1452 by Radha Saavedra RN Pressure Reduction Techniques: frequent weight shift encouraged weight shift assistance provided Intervention: Promote and Optimize Oral Intake Flowsheets (Taken 04/30/2025 145 by Radha Saavedra, LOLA) Oral Nutrition Promotion: rest periods promoted Problem: Adult Inpatient Plan of Care Goal: Plan of Care Review 05/03/20251841 by Kylee Gonzalez RN Outcome: Ongoing, Progressing Flowsheets (Taken 05/02/2025 1820 by Santy Garcia, RN) Plan of Care Reviewed With: patient 05/03/20251841 by Kylee Gonzalez RN Outcome: Ongoing, Progressing Flowsheets Taken 05/03/20251841 by Kylee Gonzalez RN Progress: improving Taken 05/02/2025 182 by Santy Garcia, RN Plan of Care [...] (Taken 05/01/2025 1130 by Rocío Crandall, RN) Trust Relationship/Rapport: care explained choices provided [...] Prevent or Manage Infection Flowsheets Taken 05/03/2025 08 by Kylee Gonzalez RN Isolation Precautions: precautions maintained Taken 05/02/20251819 by Santy Garcia, RN Fever Reduction/Comfort Measures: lightweight clothing Taken [...] chair Assistive Device Utilized: lift device Taken 05/01/20250 by Rocío Crandall RN Positioning/Transfer Devices: pillows [...] Progressing Intervention: Optimize Glycemic Control Flowsheets (Taken 05/02/2025 1820 by Santy Garcia, RN) Hyperglycemia Management: blood [...] Flowsheets (Taken 05/01/2025 1130 by Rocío Crandall, LOLA) Medication Review/Management: medications reviewed high-risk medications identified [...] from the original note were not included. [facility] Department of Surgery Division of Vascular Surgery 05/03/25 Gonzalo Smalls Subjective Subjective: HPI Gonzalo Blackman Drew is an 49 y.o. male admitted 04/27/2025 [...] - 05/03/25 0659 05/03/25 0700 - 05/03/25 1225 Requested LDAs do not [...] Results from last 7 days Lab Units 05/03/256 05/02/25 0310 05/01/25 0214 HEMOGLOBIN g/dL 8.9* [...] an 49 y.o. male who presented to [facility] 04/27/2025 with diabetic foot ulcer [...] Note Gonzalo Smalls 49 y.o. male CSN: [id number] Admission: 04/27/2025 9:29 PM Primary Problem: Diabetic [...] ??F) Oral 68 16 93 % -- 05/02/252010 128/75 37 ??C (98.6 ??F) Oral 78 [...] No MDRO isolated 04/27/25 Blood culture NGTD [facility] Culture Data: - 04/25/25: [...] PA-C Division of Infectious Diseases Available by [employer] History, assessment, and plan discussed with ID attending, Dr. Chintan Doran The following complex inpatient infectious disease services were performed today: Complex antimicrobial therapy counseling and treatment [1] Current Facility-Administered Medications Medication Dose Route Frequency Provider Last Rate Last Admin acetaminophen (Tylenol) tablet 1,000 mg 1,000 mg Oral q6h PRN Oo, Yadana, MD 1,000 mg at 05/02/252057 albuterol 108 (90 Base) MCG/ACT inhaler 2 puff 2 puff Inhalation q4h PRN Marjorie Myers MD atorvastatin (Lipitor) tablet 40 mg 40 mg Oral Nightly Marjorie Myers MD 40 mg at 05/02/252057 bisoprolol (Zebeta) tablet 5 mg 5 mg Oral BID Marjorie Myers MD 5 mg at 05/03/25922 bumetanide (Bumex) tablet 4 mg 4 mg Oral TID Marjorie Myers MD 4 mg at 05/03/25920 cariprazine (Vraylar) capsule 3 mg 3 mg Oral Daily Marjorie Myers MD 3 mg at 05/03/25922 DAPTOmycin (Cubicin) 1,500 mg in sodium chloride 0.9 % 100 mL IVPB 10 mg/kg (Adjusted) Intravenous q24h Marjorie Myers MD 280 mL/hr at 05/02/25 1741 1,500 mg at 05/02/25 174 glucose (Glutose) [...] Daily Marjorie Myers MD 120 mg at 05/03/25920 gabapentin (Neurontin) capsule 600 mg 600 mg [...] Units Subcutaneous TID with meals Sarah Martinez, CONCIERGE 30 Units at 05/03/25 0920 Insulin Lispro (Admelog, HumaLOG) 100 UNIT/ML injection 6 Units 6 Units Subcutaneous BID PRN Sarah Martinez P, CONCIERGE insulin NPH (Isophane) (HumuLIN N,NovoLIN N) injection 42 Units 42 Units Subcutaneous BID Sarah Martinez, CONCIERGE 42 Units at 05/03/25 0919 ipratropium-albuterol (Duo-Neb) [...] Daily Marjorie Myers MD 100 mg at 05/03/25 09 tamsulosin (Flomax) 24 hr capsule 0.4 mg 0.4 mg Oral Daily Marjorie Myers MD 0.4 mg at 05/03/25921 traZODone (Desyrel) tablet 100 mg 100 mg Oral Nightly OMarjorie weaver MD 100 mg at 05/02/252057 venlafaxine XR [...] Days * Progress Notes - Sarah Martinez, ADALGISA - 05/03/2025 7:55 AM EDT Endocrine - [...] continue to assess need -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 For after hours please [...] from the original note were not included. [facility] of Medicine Department of Surgery Division of [...] last 7 days Lab Units 05/03/25 0316 05/02/2530905/01/25 0214 HEMOGLOBIN g/dL 8.9* 8.8* 9.8* HEMATOCRIT [...] Ongoing, Progressing Flowsheets (Taken 05/02/20251819 by Santy Garcia RN) Progress: improving Plan of Care Reviewed [...] Ongoing, Progressing * Care Plan - Santy Garcia RN - 05/02/2025 6:21 PM EDT Problem: Skin Injury Risk Increased Goal: Skin Health and Integrity Outcome: Ongoing, Progressing Intervention: Optimize Skin Protection Flowsheets Taken 05/02/2025 1820 by Santy Garcia, RN Activity Management: activity [...] Intervention: Prevent or Manage Infection Flowsheets (Taken 05/02/2025 1820) Fever Reduction/Comfort Measures: lightweight clothing Isolation Precautions: [...] Outcome: Ongoing, Progressing Flowsheets (Taken 05/02/20251819 by Sanyt Garcia, RN) Progress: improving Plan of Care [...] Manage Infection Flowsheets Taken 05/02/20251819 by Santy Garcia RN Fever Reduction/Comfort Measures: lightweight clothing Isolation Precautions: protective Taken 05/01/20251129 by Rocío Crandall RN Infection Management: aseptic [...] Functional Ability Flowsheets Taken 05/02/20251819 by Santy Garcia RN Activity Management: activity adjusted per tolerance Self-Care Promotion: independence encouraged Taken 05/01/20251129 by Rocío Crandall RN Activity Assistance Provided: lift team assistance assistance refused Goal: Blood Glucose Level Within Target Range Outcome: Ongoing, Progressing Goal: Minimize Hypoglycemia Risk Outcome: Ongoing, Progressing Intervention: Minimize and Manage Hypoglycemia Flowsheets (Taken 05/01/20250 by Rocío Crandall RN) Hypoglycemia Management: blood [...] Support Patient and Family Response Flowsheets (Taken 05/02/20251819 by Santy Garcia, RN) [...] degrees Note: See recs Patient evaluated by [facility] nurse, individualized recommendations placed and care [...] new issues or concerns Jeevan Shah RN CWOCN 05/02/2025 12:54 PM * Query Clarification Note [...] JOINT INFECTIOUS DISEASE PROGRESS NOTE 05/02/2025 SUBJECTIVE: MARYANN, patient seen and evaluated this afternoon. He [...] No MDRO isolated 04/27/25 Blood culture NGTD [facility] Culture Data: - 04/25/25: [...] PA-C Division of Infectious Diseases Available by Acunote History, assessment, and plan discussed with ID [...] Marjorie Myers MD 600 mg at 05/02/25 09 insulin lispro (Admelog) 100 units/mL injection - [...] Units Subcutaneous TID with meals Sarah Martinez APRN 24 Units at 05/02/25 0912 insulin NPH (Isophane) (HumuLIN N,NovoLIN N) injection 42 Units 42 Units Subcutaneous BID Sarah Martinez APRN ipratropium-albuterol (Duo-Neb) 0.5-2.5 mg/3 mL nebulizer solution 3 mL 3 mL Nebulization q4h PRN Marjorie Myers MD LORazepam (Ativan) tablet 1 mg 1 mg Oral Daily PRN Marjorie Myers MD 1 mg at 04/30/25 203 magnesium oxide (Mag-Ox) tablet 800 mg 800 mg Oral Daily Diane Guzman MD 800 mg at 05/02/25 09 meropenem (Merrem) 2 g in sodium chloride [...] Marjorie Myers MD 17 g at 05/02/25 0908 [Held by provider] rivaroxaban (Xarelto) tablet 20 mg 20 mg Oral Daily Marjorie Myers MD sodium chloride 0.9 % flush 10 mL 10 mL Intravenous q12h Marjorie Myers MD 10 mL at 05/01/25 1924 And sodium chloride 0.9 % flush 10 mL 10 mL Intravenous PRN Marjorie Myers MD spironolactone (Aldactone) tablet 100 mg 100 mg Oral Daily Marjorie Myers MD 100 mg at 05/02/25 0909 tamsulosin (Flomax) 24 hr capsule 0.4 mg 0.4 mg Oral Daily Marjorie Myers MD 0.4 mg at 05/02/25 0909 traZODone (Desyrel) tablet 100 mg 100 mg Oral Nightly Marjorie Myers MD 100 mg at 05/01/252024 venlafaxine XR (Effexor-XR) 24 hr capsule 150 mg 150 mg Oral Daily Marjorie Myers MD 150 mg at 05/02/25 0909 [2] Allergies Allergen Reactions Vancomycin Other - [...] Note Gonzalo Smalls 49 y.o. male CSN: [id number] Room/Bed 117/117A Nutrition evaluation type: assessment Reason [...] at bedside. 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 No known unintentional weight changes, UBW 570#. [...] Weight Evaluation: Extreme Obesity (BMI > 40) Wing Body Weight (kg): 80.9 Percent Wing Body Weight: 311 Adjusted Body Weight (kg): [...] Regular Adult Carbohydrate Restriction: Consistent CHO 1 (0791-7921 Steven, 65 g/meal) Adult Sodium Restriction: 2,000 mg Na Percent Meals Eaten (%): 68% avg x 5 meals Diet Experience and Nutrition History: Diet Education Provided: Will monitor Pertinent home medications: Albuterol, Bumex, Insulin, Metformin, Ozempic, Aldactone Caodaism needs: Nutrition Focused Physical Exam: Physical exam [...] from the original note were not included. [facility] Department of Surgery Division of Vascular Surgery [...] Active Airway None Output by Drain (mL) 04/30/25 07 - 04/30/25 1859 04/30/25 1900 - 05/01/25 0659 05/01/25 0700 - 05/01/25 1859 05/01/25 1900 - 05/02/25 0659 05/02/25 0700 - 05/02/25 0753 Requested LDAs do not have output data [...] last 7 days Lab Units 05/02/25 0310 05/01/25 0214 04/30/25 0319 HEMOGLOBIN g/dL 8.8* 9.8* 9.6* HEMATOCRIT % 29.3* 32.5* 32.6* INR Results from last 7 days Lab Units 04/28/25 0813 INR 1.4* Cr Results from last 7 days Lab Units 05/02/25 0310 05/01/25 0214 04/30/25 0319 CREATININE mg/dL 0.73 0.71 0.77 Medications reviewed. [...] follow Edited by: Leidy Velasco MD at 04/29/2025 [...] as documented. * Progress Notes - Sarah Martinez APRN - 05/02/2025 7:47 AM EDT Endocrine - Diabetes Progress Note: Subjective: 24 hour update: -AM BG 283 -s/p toe amputation 05/01 -PO intake good with meals. Reports snacking overnight while watching the games including [employer], goldfish, ritz crackers and other snacks [...] treatment -plan and management discussed with patient, docking saw operator, bedside RN NOTE: -Patient utilizes U500 insulin pen at home. With the U500 pen, a conversion is not needed. Typically patient's required a 70% reduction in home U500 dosing. 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: home operator assistant i cementing - Anette Kendall -Tentative discharge recommendations: Insulin [...] via secure chat or page us at [phone] during -7p, Thursday-Thursday. For after hours please [...] consulted and rec amputation vs transfer to [facility] for podiatry input about foot salvage : cannot transfer to [facility] given weight limit, pod team cannot come to [facility]. - Vas surgery : Foot debridement with [...] Note Gonzalo Smalls 49 y.o. male CSN: [id number] Admission: 04/27/2025 9:29 PM Primary Problem: Diabetic [...] to monitor for further discharge needs. Mayra Apodaca, RN * Significant Event - Leidy Velasco MD - 05/01/2025 11:29 AM EDT Images from the original note were not included. [facility] Department of Surgery Division of Vascular Surgery [...] nursing staff. I have notified senior resident/attending family and consumer education teacher with any issues or concerns. Leidy Velasco [...] bony pathology, duration TBD - Will contact [facility] tomorrow to check on [...] PA-C Division of Infectious Diseases Available by Acunote History, assessment, and plan discussed with ID attending, Dr. Chintan Doran The following complex inpatient infectious disease services were performed today: Complex antimicrobial therapy counseling and treatment [1] Current Facility-Administered Medications Medication Dose Route Frequency Provider Last Rate Last Admin [Transfer Hold] acetaminophen (Tylenol) tablet 1,000 mg 1,000 mg Oral q6h PRN Sabianism, k A, CONCIERGE,DNP 1,000 mg at 04/30/25 0328 [Transfer Hold] albuterol 108 (90 Base) MCG/ACT inhaler 2 puff 2 puff Inhalation q4h PRN Sy De La Fuente APRN, DNP [Transfer Hold] atorvastatin (Lipitor) tablet 40 mg 40 mg Oral Nightly Sy De La Fuente APRN, DNP 40mg at 04/30/252019 [Transfer Hold] bisoprolol (Zebeta) tablet 5 mg [...] mL 125 mL Intravenous q15 min PRN Aeln Mena CRNA, DNP Or dextrose 10 % [...] De La Fuente APRN, DNP 600mg at 04/30/25 2020 [Transfer Hold] insulin lispro (Admelog) 100 units/mL injection - Correction - Very Resistant Dose 0-15 Units Subcutaneous TID with meals Aileen Leonardo APRN 3 Units at 04/30/25 171 [Transfer Hold] insulin lispro (Admelog) injection - Correction - Nighttime Dose 0-3 Units Subcutaneous Twice at night Sy De La Fuente APRN, DNP [Transfer Hold] Insulin Lispro (Admelog, HumaLOG) 100 UNIT/ML injection 20 Units 20 Units Subcutaneous TID with meals Aileen Leonardo APRN 20 Units at 04/30/25 171 [Transfer Hold] insulin NPH (Isophane) (HumuLIN N,NovoLIN [...] La Fuente APRN, DNP 50 mL/hr at 05/01/25 0311 2 g at 05/01/25 031 [Transfer Hold] [...] Fuente APRN, DNP 40 mg at 04/30/25 08 [Transfer Hold] polyethylene glycol (Miralax) packet 17 g 17 g Oral Daily Sy De La Fuente APRN, DNP17 g at 04/30/25952 [Held by provider] rivaroxaban (Xarelto) tablet 20 [...] De La Fuente APRN, DNP 100mg at 04/30/252019 [Transfer Hold] venlafaxine XR (Effexor-XR) 24 hr capsule 150 mg 150 mg Oral Daily Sy De La Fuente APRN, DENISE 150 mg at 04/30/25 0954 Facility-Administered Medications Ordered in Other Encounters Medication Dose Route Frequency Provider Last Rate Last Admin dexmedetomidine in NS (Precedex) 4 mcg/mL infusion Intravenous PRN Muzic, Og A, MORTGAGE LOAN COORDINATOR 8 mcg at 05/01/25 0841 fentaNYL (Sublimaze) injection Intravenous PRN Muzic, Og A, MORTGAGE LOAN COORDINATOR 25 mcg at 05/01/25 0826 lactated Ringer's infusion Intravenous Continuous PRN Muzic, Og A, MORTGAGE LOAN COORDINATOR New Bag at 05/01/25 0728 midazolam (Versed) injection Intravenous PRN Muzic, Og A, MORTGAGE LOAN COORDINATOR 1 mg at 05/01/25 0757 [2] Allergies [...] (H) 04/29/2025 I reviewed bg tracing in [facility] glucose timeline 05/01/25 ASSESSMENT Hospital Course: Gonzalo [...] continue to assess need -Follow-up plan: home operator assistant i cementing - Anette Kendall -Tentative discharge recommendations: Insulin [...] team via secure chat orpage us at [phone] during 7a-7p, Thursday-Thursday. For after hours please [...] AM EDT Operative Note Date: 05/01/25 Location: [facility] Name: Gonzalo Smalls, : 1975, Diagnoses: Pre-op Diagnosis Other chronic osteomyelitis of right foot (CMS/HCC) Post-op Diagnosis Other chronic osteomyelitis of right foot (CMS/HCC) Procedure(s): Right 5th toe ray amputation Attending Surgeon(s): * Mary Vicente - Primary Grounds Foreman(s): * Paula Martinez MD - Resident - [...] or obstruction 05/01/25909 Output (mL) 600 mL 05/01/25 09 Specimen: Specimens ID Source Frozen? 1 Toe, [...] the wound bed. This extended more than fdc to the heel laterally. The underlying skin [...] Xeroform, 4x4, kerlix wrap x 2, and mayr compression dressing were used to dress the [...] Problem: Diabetes Goal: Optimal Coping Outcome: Ongoing, Intervention: Support Wellbeing and Self-Management Success Flowsheets (Taken 05/01/20253) Supportive Measures: active listening utilized self-care encouraged Family/Support System Care: presence promoted Goal: Optimal Functional Ability Outcome: Ongoing, Progressing Intervention: Optimize Functional Ability Flowsheets (Taken 05/01/20253) Activity Management: activity adjusted per tolerance Self-Care Promotion: independence encouraged Goal: Blood Glucose Level Within Target Range Outcome: Ongoing, Progressing Intervention: Optimize Glycemic Control Flowsheets (Taken 05/01/20253) Hyperglycemia Management: blood glucose monitored Goal: Minimize Hypoglycemia Risk Outcome: Ongoing, Intervention: Minimize and Manage Hypoglycemia Flowsheets (Taken [...] consulted and rec amputation vs transfer to [facility] for podiatry input about foot salvage : cannot transfer to [facility] given weight limit, pod team cannot [...] Prevent or Manage Infection Flowsheets Taken 04/30/2025 1452 Infection Management: aseptic technique maintained Fever Reduction/Comfort [...] kg/m?? Labs and medications reviewed. Blood glucose [id number] Medications: Current Scheduled Medications[1] Current Continuous Medications[2] [...] continue to assess need -Follow-up plan: home operator assistant i cementing - Anette Kendall -Tentative discharge recommendations: Insulin [...] PGY-4 Division of Endocrinology, Diabetes and Metabolism [facility] Medically Ready for Discharge: [1] atorvastatin, 40 [...] from the original note were not included. [facility] Department of Surgery Division of [...] He is unable to be transferred to [facility] for Podiatry due to weight Edited [...] from last 7 days Lab Units 04/30/25 03104/29/25 0304 04/27/25 2137 HEMOGLOBIN g/dL 9.6* 9.4* 10.4* HEMATOCRIT % 32.6* 32.0* 33.3* INR Results from last 7 days Lab Units 04/28/25 0813 INR 1.4* Cr Results from last 7 days Lab Units 04/30/25 03104/29/25 0304 04/27/25 2137 CREATININE mg/dL 0.77 0.94 0.84 Medications reviewed. Vital signs reviewed. Labs reviewed. Assessment/Plan Assessment and Plan: Gonzalo Smalls is a 49 y.o. male with PMHx notable for class III obesity, CHF (EF 55% in 2021), paroxsymal atrial fibrillation (on Xarelto), HTN, HLD, T2DM, COPD, QUINN on 2LNC at night, recurrent UTIswho presented to [facility] with nonhealing right foot wound. Radiographs significant for cortical degeneration of fifth metatarsal and exam with evidence of exposed bone; high degree of suspicion for osteomyelitis Plan for foot debridement with possible 5th and 4th toe amputation tomorrow. Plan: -Please make the pt NPO tonight Edited by: Leidy Velasco MD at 04/29/20251811 [...] kg/m?? Labs and medications reviewed. Blood glucose [id number] Medications: Current Scheduled Medications[1] Current Continuous [...] continue to assess need -Follow-up plan: home operator assistant i cementing - Anette Kendall -Tentative discharge recommendations: Insulin [...] PGY-4 Division of Endocrinology, Diabetes and Metabolism [facility] Diabetes [facility] [1] atorvastatin, 40 mg, Oral, Nightly [...] rec amputation but we can transfer to [facility] for pod input about the surgery for the DM wound Vas team do not feel a debridement would sufficiently treat his wound. Reached out to APT team and plan to transfer him to [facility] Review of Systems Pain in right [...] consulted and rec amputation vs transfer to [facility] for podiatry input about foot salvage [...] continue to assess need -Follow-up plan: home operator assistant i cementing - Anette Kendall -Tentative discharge recommendations: Insulin [...] Adult Inpatient Diabetes team via secure chat orpaOptovue us at [phone] during 7a-7p, Thursday-Thursday. For after hours please [...] as documented. * Care Plan - Lyle Jacobs, RN - 04/28/2025 3:57 PM EDT Problem: [...] Progressing Intervention: Optimize Skin Protection Flowsheets (Taken 04/28/2025913) Activity Management: activity adjusted [...] Note Gonzalo Smalls 49 y.o. male CSN: [id number] Admission: 04/27/2025 9:29 PM Primary Problem: Diabetic foot ulcer Social Work Coordinator reviewed chart and spoke with patient at bedside to complete this Initial Case Management Assessment. PCP: Malcolm Hayward APRN Emergency Contact: Extended Emergency Contact Information Primary Emergency Contact: Maggie Smalls Mobile Relation: Spouse Preferred language: Kyrgyz Nuclear Spectroscopist needed? No Insurance: Primary Visit Coverage Payer Plan Sponsor Code Group Number Group Name THIAGO SOTOMAYOR/[facility] [id number] [employer] Sian's Plan Primary Visit Coverage Subscriber Subscriber ID Subscriber Name Subscriber SSN Subscriber Address [id number] GONZALO SMALLS [id number] [address] [id number] Secondary Visit Coverage Payer Plan Sponsor Code Group Number Group Name MEDICARE MEDICARE A & B Secondary Visit Coverage Subscriber Subscriber ID Subscriber Name Subscriber SSN Subscriber Address [id number] GONZALO SMALLS [id number] [address] [id number] Patient information: Primary Caregiver: Self Support System: Immediate family Daily Living Activities: Functional Status: Minimum assistance Living Arrangements: Spouse/Significant other, Children (daughter) Type of Residence: Private residence, Single Level ([address]) [address] [address] Smoker in the Home?: No Current DME: [...] line dressing changes Living Will/Advance Directive/Power of Dedenter /Guardian: None Additional Comments: Patient admitted for worsening right diabetic foot ulcer. Vascular surgery consulted. ID consulted.Endocrine consulted. RNCM will continue to monitor for further discharge needs. Mayra Apodaca RN * Progress Notes - Marjorie Myers MD - 04/28/2025 1:24 PM EDT Seen and examined. ID vascular team has consulted Tony to continue * Consults - Janis Wheeler MD - 04/28/2025 12:26 PM EDTAssociated Order(s): Inpatient consult to Vascular Surgery Images from the original note were not included. [facility] Department of Surgery Division of Vascular Surgery [...] night, recurrent UTIs who presented to the [facility] on 04/27/2025 with right foot wound. [...] Unknown (04/24/2023) Received from [facility] Family and Community Support Help with Day-to-Day [...] History Administered Date(s) Administered Moderna COVID-19 Vaccine (Vamp Strap Ironer) 12+ years 01/25/2021, 02/22/2021 Pneumococcal Conjugate PCV [...] a day. 09/05/21 Yes Provider, Historical HYDROcodone-acetaminophen ([place]) 10-325 MG tablet Take 1 tablet by [...] Yes Provider, Historical Insulin Pen Needle (Pen [place]) 31G X 5 MM misc USE TO INJECT INSULIN 3 TIMES PER DAY 02/27/25 Divine Archer APRN naloxone (Narcan) 4 mg/0.1 mL nasal spray 1. Give 1 spray in nostril for no/slow breathing or cannot wake after opioid use 2. Call 911 3. Repeat in other nostril if symptoms continue 12/17/24 Rachael Berriso APRN Ostomy Supplies (stomahesive) powder powder Apply [...] 2LNC at night, recurrent UTIswho presented to [facility] with nonhealing right foot wound. Radiographs significant [...] mg Oral Nightly Sy De La Fuente APRLashawn DENISE venlafaxine XR (Effexor-XR) 24 hr capsule 150 [...] by mouth 3 times a day. HYDROcodone-acetaminophen ([place]) 10-325 MG tablet Take 1 tablet by [...] by mouth daily. Insulin Pen Needle (Pen [place]) 31G X 5 MM [facility] USE TO INJECT INSULIN [...] [X] Family [ ] Friend [ ] Nuclear Spectroscopist [X] Medical records HISTORY OF PRESENT ILLNESS: [...] and was treated in theemergency department at [facility] a few days ago [...] in the ED 2-3 days ago at [facility]. I contacted OSH who [...] a day. 09/05/21 Yes Provider, Historical HYDROcodone-acetaminophen ([place]) 10-325 MG tablet Take 1 tablet by [...] for nausea or vomiting. 12/17/24 Yes Rachael Berrios, ADALGISA Ozempic, 0.25 or 0.5 MG/DOSE, 2 MG/3ML [...] Yes Provider, Historical Insulin Pen Needle (Pen [place]) 31G X 5 MM misc USE TO INJECT INSULIN 3 TIMES PER DAY 02/27/25 Divine Archer, ADALGISA naloxone (Narcan) 4 mg/0.1 mL nasal spray [...] -- 93 17 92 % -- -- 04/27/25 2246 -- -- -- -- -- -- 1.829 m (6') (!) 274 kg (604 lb 8 oz) 04/27/25 1919 130/74 37.1 ??C (98.8 ??F) Oral 107 [...] Will follow-up blood and urine cultures from [facility] for further ID/susceptibilities, obtained [...] PA-C Division of Infectious Diseases Available by Acunote History, assessment, and plan discussed with ID [...] 3 mL 3 mL Nebulization q4h PRN yS De La Fuente APRN, DNP lidocaine (Uro-Jet) [...] mL Intravenous PRN Sy De La Fuente APRN DENISE spironolactone (Aldactone) tablet 100 mg 100 mg Oral Daily Sy De La Fuente APRN, DNP 100 mg at 04/28/25 0849 tamsulosin (Flomax) 24 hr capsule 0.4 mg 0.4 mg Oral Daily Sy De La Fuente APRN, DNP 0.4 mg at 04/28/25 0848 traZODone (Desyrel) tablet 100 mg 100 mg Oral Nightly Sy De La Fuente APRLashawn DENISE venlafaxine XR (Effexor-XR) 24 hr capsule 150 [...] by mouth 3 times a day. HYDROcodone-acetaminophen ([place]) 10-325 MG tablet Take 1 tablet by [...] by mouth daily. Insulin Pen Needle (Pen [place]) 31G X 5 MM misc USE TO [...] Bailey Cueva MD * Progress Notes - Poppy Perealeora Maurice - 04/28/2025 9:02 AM EDT Physical Therapy [...] back pain 04/22/2019 Hypertension 02/18/2019 Morbid obesity ([facility]/HCC) 12/24/2016 Procedures Past Medical History Patient has a past medical history of Acute kidney injury (05/19/2024), Alcohol abuse, in remission, Anxiety disorder, unspecified, Arthritis, Atrial fibrillation ([facility]), CAP (community acquired pneumonia) (05/19/2024), Cellulitis [...] in Care Family/Caregiver Present: Yes Family/Caregiver: Spouse Nuclear Spectroscopist: Not Applicable Presentation Oxygen Therapy: None (Room [...] Needs assist Patient/Family Goals Return home at [facility]. Objective Pain Pt reports 7/10 pain [...] pain. Bed Mobility Exam: Rolling/Turning Level of [place]: Maximum assist (25% patient effort) Physical/Nonphysical Assist: Verbal Cues, Moderate cues Assistive Device: Bed rails, Other (TECHNICAL PROFESSIONAL) Bed Mobility Exam: Scooting/Bridging Level of [place]: Maximum assist (25% patient's effort) (up in bed; Lester forward at EOB) Physical/Nonphysical Assist: Verbal Cues, Moderate cues Assistive Device: Bed rails Bed Mobility Exam: Supine to Sit Level of [place]: Maximum assist (25% patient's effort) Physical/Nonphysical Assist: Verbal Cues, Moderate cues, Set-up required, Additional assist utilized for safety Assistive Device: Other (TECHNICAL PROFESSIONAL) Bed Mobility Exam: Sit to Supine Level of [place]: Maximum assist (25% patient's effort) Physical/Nonphysical Assist: [...] space Standardized Assessments Standardized Assessments Standardized Assessments: AMPAC 6-Clicks Mobility Assessment AMPA 6-Clicks Mobility Assessment Difficulty patient has turning [...] climbing 3-5 steps with a railing?: Unable [facility] 6-Clicks Mobility Assessment Total : 8 No [...] remission, Anxiety disorder, unspecified, Arthritis, Atrial fibrillation ([facility]), CAP (community acquired pneumonia) (05/19/2024), Cellulitis [...] CARE Subjective Pt reports Visitors Present Spouse Nuclear Spectroscopist (if applicable) PRESENTATION Oxygen Room Air Telemetry [...] help from Spouse Level of Mobility Mobility [place] History of Falls ADL Performance ADL Performance: Needs assistance Bathing: Needs assist Upper Body Dressing: Needs assist Lower Body Dressing: Needs assist Grooming: Needs assist Toileting: Independent Eating: Independent Home Management Skills: Needs assist PATIENT/FAMILY GOALS Pt agreeable to OT eval OBJECTIVE PAIN 01/19 back and buttocks pain Pain management addressed [...] Mobility Bed Mobility Exam: Rolling/Turning Level of [place]: Maximum assist (25% patient effort) Physical/Nonphysical Assist: Verbal Cues, Moderate cues Assistive Device: Bed rails, Other (TECHNICAL PROFESSIONAL) Bed Mobility Exam: Scooting/Bridging Level of [place]: Maximum assist (25% patient's effort) (up in bed; Lester forward at EOB) Physical/Nonphysical Assist: Verbal Cues, Moderate cues Assistive Device: Bed rails Bed Mobility Exam: Supine to Sit Level of [place]: Maximum assist (25% patient's effort) Physical/Nonphysical Assist: Verbal Cues, Moderate cues, Set-up required, Additional assist utilized for safety Assistive Device: Other (TECHNICAL PROFESSIONAL) Bed Mobility Exam: Sit to Supine Level of [place]: Maximum assist (25% patient's effort) Physical/Nonphysical Assist: [...] POC an d discharge recommendations. STANDARDIZED ASSESSMENTS [facility] 6-Click Daily Activities Help from Other: Don/Doff Regular Lower Body Clothings: A lot Help From Other: Bathing: A lot Help From Other: Toileting: A lot Help From Other: Don/Doff Upper Body Clothings: None Help From Other: Grooming: None Help From Other: Eating Meals: None [facility] 6 Click - Daily Activities Score: [...] Lunch: leftovers/baked oatmeal Dinner: take out/cooking - [facility], cracker barrel Snacks: peanut butter crackers, cheese [...] remission, Anxiety disorder, unspecified, Arthritis, Atrial fibrillation ([facility]/HCC), CAP (community acquired pneumonia) (05/19/2024), Cellulitis (05/19/2024), [...] continue to assess need -Follow-up plan: home operator assistant i cementing - Anette Kendall -Tentative discharge recommendations: Insulin [...] team via secure chat orpage us at [phone] during 7a-7p, Thursday-Thursday. For after hours please [...] 5 mg 5 mg Oral q6h PRN Dir Leisaluis Maurice APRN, DNP 5 mg at 04/28/25 0849 pantoprazole (Protonix) EC tablet 40 mg 40 mg Oral Daily before breakfast Leisa Sy Maurice APRN, DNP40 mg at 04/28/25 0848 polyethylene [...] capsule 150 mg 150 mg Oral Daily SabianismSy APRN, DNP 150 mgat 04/28/25 0848 Current [...] by mouth 3 times a day. HYDROcodone-acetaminophen ([place]) 10-325 MG tablet Take 1 tablet by [...] by mouth daily. Insulin Pen Needle (Pen [place]) 31G X 5 MM [facility] USE TO INJECT INSULIN [...] 04/28/2025 6:09 AM EDTAssociated Order(s): Consult to [facility] Images from the original note were not included. Consult to [facility] Consult performed by: Sy De La Fuente [...] with questions if refills are denied. 12/17/24 Rcahael Berrios, ADALGISA albuterol 108 (90 Base) MCG/ACT inhaler Inhale [...] times a day. 09/05/21 Provider, Historical HYDROcodone-acetaminophen ([place]) 10-325 MG tablet Take 1 tablet by mouth every 6 hours as needed. Provider, Historical insulin NPH-insulin regular (NovoLIN 70/30 FlexPen) (70-30) 100 UNIT/ML injection pen Inject 90 Units under the skin 3 times a day before meals. FURTHER REFILLS WILL BE PROVIDED UPON ATTENDANCE OF NEXT OFFICE VISIT 03/29/25 02/22/25 Divine Archer APRN Insulin Pen Needle (Pen [place]) 31G X 5 MM misc USE TO [...] Value Units Date/Time Blood Culture (Aerobic/Anaerobet Set) [[id number]] Collected: 04/27/252215 Order Status: Completed Specimen: Blood, Venous Updated: 04/28/25111 Culture Culture in lab Blood Culture (Aerobic/Anaerobet Set) [[id number]] Collected: 04/27/252215 Order Status: Completed Specimen: Blood, [...] daily #Morbid Obesity - failed gastric sleeve, [place], BMI 81.99, complicates all aspects of care [...] warmth, chills, vomiting. History provided by: Patient taker out used: No I agree with the above [...] ???kidney infection?? where he was admitted at [facility]. Patient denies any shortness of breath, fevers, [...] Allergies: Allergies[5] Physical Exam ED Triage Vitals [04/27/251918] Temp Heart Rate Resp BP 37.1 ??C [...] records from his previous hospital visit at [facility] which showed he was [...] 04/28/2025 0626 Date/Time Order Dose Route Action 04/27/20252234 EDT lactated Ringer's infusion 500 mL 500 mL Intravenous New Bag 04/27/2025 223 EDT magnesium sulfate IVPB 2 g 2 [...] Ordered Status Ordering Provider 04/28/25541 Consult to [facility] Once Specialty: Internal Medicine Provider: (Not yet assigned) Acknowledged SUMAN NATARAJAN 04/28/25541 ED to floor bed request Once Acknowledged [...] Culture (Aerobic/Anaerobet Set) STAT Preliminary result SUMAN NTAARAJAN 04/27/252154 Blood Culture (Aerobic/Anaerobet Set) STAT Preliminary result SUMAN NATARAJAN 04/27/252154 Magnesium STAT Final result SUMAN NATARAJAN 04/27/252154 Type and screen Start now Final result SUMAN NATARAJAN 04/27/252154 XR Foot Right 3+ Views Once Final result SUMAN NATARAJAN 04/27/252106 Hepatitis C Antibody - ED Once Final result MADHU RITCHIE 04/27/252106 ED Protocol - HIV 1/2 Antibody/Antigen Screen Once Final result MADHU RITCHIE 04/27/252106 ED HIV 1/2 Antibody/Antigen Screen w/Reflex to HIV 1/2 Differentiation PROCEDURE ONCE Final result MADHU RITCHIE 04/27/252106 BMP STAT Final result RITCHIE, MADHU Blackman 04/27/252106 CBC w/diff STAT Final result MADHU RITCHIE 04/27/252106 C-reactive protein STAT Final result MADHU RITCHIE 04/27/252106 Insert peripheral IV Continuous Acknowledged MADHU RITCHIE ED Course as of 05/07/25 1047 Michaelle Apr 27, 20252216 Magnesium(!) Repleting mag [SH] 221 CBC w/diff(!) Leukocytosis with left shift concerning for acute infection, correlates with the foot infection. [SH] 2229 Blood gas, venous(!) No acidosis or bicarb depletion. Low concern for DKA [SH] ThuApr 28, 2025 0238 Spoke with pharmacy team, patient had ertapenem coverage and we expanded to Merrem for 1 time dose prior to likely admission given the lack of Pseudomonas coverage. I spoke with the pullman clerk to tryto get records from [facility] to see why he was being treated with ertapenem for UTIs. [SH] 0625 Magnesium(!) Repleted [SH] 0626 CT Foot Right w IV Contrast osteo [SH] Shefali May 07, 2025 1045 XR Foot Right 3+ Views [DL] ED Course User Index [DL] Jessa Lwa MD [SH] Suman Natarajan DO Clinical Impressions as of 05/07/25 1047 [...] performed and thedecisions made by me. 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 documented in this encounter Plan of Treatment Upcoming Encounters Date Type Department Care Team (Late st Contact Info) Description 08/03/2025 2:00 PM EST [facility] Visit [facility] [address] 5th Floor [address] [place] [address] Mary Vicente MD [address] [place] [address] Scheduled Orders Name Type Priority Associated Diagnoses Order Schedule Surgical Pathology Exam Pathology and Cytology Routine Once (Lab) for 1 Occurrences starting 05/01/2025 until 05/01/2025 Scheduled Referrals Name Type Priority Associated Diagnoses Orde r Schedule Discharge Ambulatory referral to [facility] Referral Routine Diabetic foot [...] AND IGM) Routine 05/03/2025 3:16 AM EDT HC HBSAG Routine 05/03/2025 3:16 AM EDT CBC WITH [...] POCT glucose meter (05/18/2025 8:09 AM EST) POCT Glucose 124(H) 74 - 99 mg/dL 05/18/2025 8:11 AM EST [facility] Comment:Accuracy of a glucos e result [...] for testing. Comment 05/18/2025 8:11 AM EST [facility] Spinning Frame Changer ID Char Hinojosa 05/18/2025 8:11 AM EST [facility] Device ID [id number] 05/18/2025 8:11 AM EST [facility] Specimen Type POC Capillary 05/18/2025 8:11 AM EST [facility] Blood Capillary blood specimen / Unknown 05/18/2025 8:09 AM EST 05/18/2025 8:11 AM EST Umar R Jay Jay DO LAB POINT OF CARE TE ST DOCKED DEVICE UNSOLICITED RESULTS Final Result [facility] [address] [place] [address] * (ABNORMAL) POCT glucose meter (05/17/2025 7:54 PM EST) POCT Glucose 216(H) 74 - 99 mg/dL 05/17/2025 7:55 PM EST [facility] Comment:Accuracy of a glucos e result [...] 05/17/2025 7:55 PM EST [facility] Spinning Frame Changer ID Ron Lal 7:55 PM EST [facility] Device ID [id number] 05/17/2025 7:55 PM EST [facility] Specimen Type POC Capillary 05/17/2025 7:55 PM EST [facility] Blood Capillary blood specimen / Unknown 05/17/2025 7:54 PM EST 05/17/2025 7:55 PM EST Wily Goyal DO LAB POINT OF CARE TE ST DOCKED DEVICE UNSOLICITED RESULTS Final Result Performing Organization Address City/[facility] Co de Phone Number [facility] [address] [place] [address] * (ABNORMAL) POCT glucose meter (05/17/2025 5:13 PM EST) [facility] POCT Glucose 186(H) 74 - 99 mg/dL [...] 05/17/2025 5:14 PM EST [facility] Spinning Frame Changer ID Char Hinojosa 05/17/2025 5:14 PM EST [facility] Device ID [id number] 05/17/2025 5:14 PM EST [facility] Specimen Type POC Capillary 05/17/2025 5:14 PM EST [facility] Blood Capillary blood specimen / Unknown 05/17/2025 5:13 PM EST 05/17/2025 5:14 PM EST Kazar R Jay Jay DO LAB POINT OF CARE TE ST DOCKED DEVICE UNSOLICITED RESULTS Final Result Performing Organization Address City/[facility]/ZIP Co de Phone Number [facility] [address] [place] [address] * (ABNORMAL) POCT glucose meter (05/17/2025 1:01 PM EST) Pathologist [facility] POCT Glucose 191(H) 74 - 99 mg/dL 05/31/2025 3:12 PM EST [facility] Comment:Accuracy of a glucos e result [...] for testing. Comment 05/31/2025 3:12 PM EST [facility] Spinning Frame Changer ID Char Hinojosa 05/31/2025 3:12 PM EST [facility] Device ID [id number] 05/31/2025 3:12 PM EST [facility] Specimen Type POC Capillary 05/31/2025 3:12 PM EST [facility] Blood Capillary blood specimen / Unknown 05/17/2025 1:01 PM EST 05/31/2025 3:12 PM EST us Umar R Jay Jay DO LAB POINT OF CARE TE ST DOCKED DEVICE UNSOLICITED RESULTS Final Result [facility] [address] [place] [address] * ECHO, ADULT TRANSTHORACIC COMPLETE W/ CONTRAST (05/17/2025 9:51 AM EST) Pathologist [facility] BSA 3.30 m2 HANK ISCV Height 182.9 [...] Ao Diam 37 mm HANK ISCV PA PA(ACCEL) 24.6 mmHg HANK ISCV LV mean PG [...] is no recent study available for direct [id number] comparison. Left Ventricle The left ventricle is [...] is no recent study available for direct [id number] comparison. Wily Goyal DO CV ECHO PROCEDURES Final Result * (ABNORMAL) POCT glucose meter (05/17/2025 8:52 AM EST) POCT Glucose 225(H) 74 - 99 mg/dL 05/31/2025 3:12 PM EST [facility] Comment:Accuracy of a glucos e result [...] testing. Comment 05/31/2025 3:12 PM EST [facility] Spinning Frame Changer ID Char Hinojosa 05/31/2025 3:12 PM EST [facility] Device ID [id number] 05/31/2025 3:12 PM EST [facility] Specimen Type POC Capillary 05/31/2025 3:12 PM EST [facility] Blood Capillary blood specimen / Unknown 05/17/2025 8:52 AM EST 05/31/2025 3:12 PM EST RUSTnicolas Goyal DO LAB POINT OF CARE TE ST DOCKED DEVICE UNSOLICITED RESULTS Final Result [facility] [address] [place] [address] * (ABNORMAL) POCT glucose meter (05/16/2025 9:28 [...] 05/31/2025 3:12 PM EST [facility] Spinning Frame Changer ID Jamal Soriano 3:12 PM EST [facility] Device ID [id number] 05/31/2025 3:12 PM EST [facility] Specimen Type POC Capillary 05/31/2025 3:12 PM EST [facility] Blood Capillary blood specimen / Unknown 05/16/2025 9:28 PM EST 05/31/2025 3:12 PM EST Wily Goyal DO LAB POINT OF CARE TE ST DOCKED DEVICE UNSOLICITED RESULTS Final Result [facility] [address] [place] [address] * (ABNORMAL) POCT glucose meter (05/16/2025 5:37 PM EST) [facility] POCT Glucose 283(H) 74 - 99 mg/dL [...] for testing. Comment 05/16/2025 5:39 PM EST [facility] Spinning Frame Changer ID Char Hinojosa 05/16/2025 5:39 PM EST [facility] Device ID [id number] 05/16/2025 5:39 PM EST [facility] Specimen Type POC Capillary 05/16/2025 5:39 PM EST [facility] Blood Capillary blood specimen / Unknown 05/16/2025 5:37 PM EST 05/16/2025 5:39 PM EST Umar R Jay Jay DO LAB POINT OF CARE TE ST DOCKED DEVICE UNSOLICITED RESULTS Final Result Performing Organization Address City/[facility] Co de Phone Number [facility] [address] [place] [address] * ECG Adult (05/16/2025 3:33 PM EST) EKG DIAGNOSIS CLASS Abnormal MUSE ECG Ventricular Rate 58 BPM MUSE ECG Atrial Rate 58 BPM MUSE ECG PA Interval 184 ms MUSE ECG QRSD Interval 158 ms MUSE ECG QT Interval 496 ms MUSE ECG QTC Interval 486 ms MUSE ECG P [place] 30 degrees MUSE ECG R [place] -35 degrees MUSE ECG T Wave [place] -5 degrees MUSE ECG Diagnosis Sinus bradycardia [...] 3:33 PM EST 05/18/2025 12:15 AM EST RUSTnicolas Goyal DO ECG ORDERABLES Final Result Performing Organization Address [facility] de Phone Number MUSE ECG * (ABNORMAL) POCT glucose meter (05/16/2025 12:06 PM EST) POCT Glucose 161(H) 74 - 99 mg/dL 05/16/2025 12:07 PM EST [facility] Comment:Accuracy of a glucos e result [...] 05/16/2025 12:07 PM EST [facility] Spinning Frame Changer ID Char Hinojosa 05/16/2025 12:07 PM EST [facility] Device ID [id number] 05/16/2025 12:07 PM EST [facility] Specimen Type POC Capillary 05/16/2025 12:07 PM EST [facility] Blood Capillary blood specimen / Unknown 05/16/2025 12:06 PM EST 05/16/2025 12:07 PM EST us Selin Lee MD LAB POINT OF CARE TE ST DOCKED DEVICE UNSOLICITED RESULTS Final Result Performing Organization Address City/[facility] Co de Phone Number [facility] [address] [place] [address] * (ABNORMAL) POCT glucose meter (05/16/2025 8:17 AM EST) POCT Glucose 168(H) 74 - 99 mg/dL 05/16/2025 8:21 AM EST [facility] Comment:Accuracy of a glucos e result [...] for testing. Comment 05/16/2025 8:21 AM EST [facility] Spinning Frame Changer ID Char Hinojosa 05/16/2025 8:21 AM EST [facility] Device ID [id number] 05/16/2025 8:21 AM EST [facility] Specimen Type POC Capillary 05/16/2025 8:21 AM EST [facility] Blood Capillary blood specimen / Unknown 05/16/2025 8:17 AM EST 05/16/2025 8:21 AM EST Selin Lee MD LAB POINT OF CARE TE ST DOCKED DEVICE UNSOLICITED RESULTS Final Result Performing Organization Address City/[facility]/ZIP Co de Phone Number [facility] [address] [place] [address] * (ABNORMAL) CBC and Differential (05/16/2025 4:08 AM EST) WBC Count 7.97 3.70 - 10.30 10*3/uL LAB HEMATOLOGY METHOD 05/16/2025 4:[address] [facility] RBC Count 4.27(L) 4.60 - 6.10 10*6/uL LAB HEMATOLOGY METHOD 05/16/2025 4:26 AM [facility] HGB 9.5(L) 13.7 - 17.5 g/dL LAB HEMATOLOGY METHOD 05/16/2025 4:26 AM [facility] HCT 31.6(L) 40.0 - 51.0 % LAB HEMATOLOGY METHOD 05/16/2025 4:26 AM [facility] Platelet Count 264 155 - 369 10*3/uL LAB HEMATOLOGY METHOD 05/16/2025 4:26 AM [facility] MCV 74(L) 79 - 98 fL LAB HEMATOLOGY METHOD 05/16/2025 4:26 AM [facility] MCH 22.2(L) 26.0 - 32.0 pg LAB HEMATOLOGY METHOD 05/16/2025 4:26 AM [facility] MCHC 30.1(L) 30.7 - 35.5 g/dL LAB HEMATOLOGY METHOD 05/16/2025 4:26 AM [facility] RDW 17.9(H) 11.5 - 14.5 % LAB HEMATOLOGY METHOD 05/16/2025 4:26 AM [facility] MPV 9.2 8.8 - 12.5 fL LAB HEMATOLOGY METHOD 05/16/2025 4:26 AM [facility] nRBC 0.0 <=0.0 per 100 WBCs LAB HEMATOLOGY METHOD 05/16/2025 4:26 AM [facility] Differential Type Automated LAB HEMATOLOGY METHOD 05/16/2025 4:26 AM [facility] Neutrophils % 67 % LAB HEMATOLOGY METHOD 05/16/2025 4:26 AM [facility] Lymphocytes % 16 % LAB HEMATOLOGY METHOD 05/16/2025 4:26 AM [facility] Monocytes % 12 % LAB HEMATOLOGY METHOD 05/16/2025 4:26 AM [facility] Eosinophils % 3 % LAB HEMATOLOGY METHOD 05/16/2025 4:26 AM [facility] Basophils % 1 % LAB HEMATOLOGY METHOD 05/16/2025 4:26 AM [facility] Immature Granulocytes % 1 % LAB HEMATOLOGY METHOD 05/16/2025 4:26 AM [facility] Neutrophils Absolute 5.39 1.60 - 6.10 10*3/uL LAB HEMATOLOGY METHOD 05/16/2025 4:[address] [facility] Lymphocytes Absolute 1.30 1.20 - 3.90 10*3/uL LAB HEMATOLOGY METHOD 05/16/2025 4:[address] [facility] Monocytes Absolute 0.93(H) 0.30 - 0.90 10*3/uL LAB HEMATOLOGY METHOD 05/16/2025 4:[address] [facility] Eosinophils Absolute 0.26 0.00 - 0.50 10*3/uL LAB HEMATOLOGY METHOD 05/16/2025 4:[address] [facility] Basophils Absolute 0.05 0.00 - 0.10 10*3/uL LAB HEMATOLOGY METHOD 05/16/2025 4:[address] [facility] Immature Granulocytes Absolute 0.04 0.00 - 0.06 10*3/uL LAB HEMATOLOGY METHOD 05/16/2025 4:[address] [facility] Blood Venous blood specimen / Unknown Venipuncture / Unknown 05/16/2025 4:08 AM EST 05/16/2025 4:[address] [facility] - 05/16/2025 4:26 AM EST Therapeutic decision making should be based on absolute values, rather than percentages. us Selin Lee MD LAB BLOOD ORDERABLES Final Re sult Performing Organization Address City/[facility]/ZIP Co de Phone Number [facility] [address] [place] [address] * (ABNORMAL) Magnesium, Plasma (05/16/2025 4:08 AM EST) Magnesium, Plasma 1.8(L) 1.9 - 2.4 mg/dL 05/16/2025 4:[address] [facility] Blood Venous blood specimen / Unknown Venipuncture / Unknown 05/16/2025 4:08 AM EST 05/16/2025 4:16 AM EST us Selin Lee MD LAB BLOOD ORDERABLES Final Re sult Performing Organization Address City/[facility]/ZIP Co de Phone Number [facility] [address] [place] [address] * (ABNORMAL) Basic Metabolic Panel, Plasma (05/16/2025 4:08 AM EST) Glucose, Plasma 168(H) 74 - 99 mg/dL 05/16/2025 4:[address] [facility] BUN, Plasma 19 7 - 21 mg/dL 05/16/2025 4:[address] [facility] Creatinine, Plasma 0.86 0.70 - 1.20 mg/dL 05/16/2025 4:[address] [facility] BUN/Creatinine Ratio 22 05/16/2025 4:[address] [facility] Sodium, Plasma 131(L) 136 - 145 mmol/L 05/16/2025 4:[address] [facility] Potassium, Plasma 3.6 3.6 - 4.9 mmol/L 05/16/2025 4:[address] [facility] Chloride, Plasma 88(L) 97 - 107 mmol/L 05/16/2025 4:[address] [facility] CO2, Plasma 34(H) 22 - 29 mmol/L 05/16/2025 4:[address] [facility] Anion Gap 9 6 - 16 mmol/L 05/16/2025 4:[address] [facility] Total Calcium, Plasma 9.3 8.9 - 10.2 mg/dL 05/16/2025 4:[address] [facility] eGFRcr 107.5 mL/min/1.7 3m*2 05/16/2025 4:[address] [facility] Comment:Reported eGFRcr in m L/min/1.73m2 is based the CKD-EPI 2020 equation that does not use a race coefficient. Blood Venous blood specimen / Unknown Venipuncture / Unknown 05/16/2025 4:08 AM EST 05/16/2025 4:16 AM EST us Selin Lee MD LAB BLOOD ORDERABLES Final Re sult [facility] [address] [place] [address] * Phosphorus, Plasma (05/16/2025 4:08 AM EST) [facility] Phosphorus, Plasma 3.7 2.5 - 4.5 mg/dL 05/16/2025 4:[address] [facility] Blood Venous blood specimen / Unknown Venipuncture / Unknown 05/16/2025 4:08 AM EST 05/16/2025 4:16 AM EST us Selin Lee MD LAB BLOOD ORDERABLES Final Re sult [facility] [address] [place] [address] * (ABNORMAL) POCT glucose meter (05/15/2025 8:00 PM EST) [facility] POCT Glucose 190(H) 74 - 99 mg/dL [...] 05/15/2025 8:02 PM EST [facility] Spinning Frame Changer ID Timo Campbell 8:02 PM EST [facility] Device ID [id number] 05/15/2025 8:02 PM EST [facility] Specimen Type POC Capillary 05/15/2025 8:02 PM EST [facility] Blood Capillary blood specimen / Unknown 05/15/2025 8:00 PM EST 05/15/2025 8:02 PM EST us Selin Lee MD LAB POINT OF CARE TE ST DOCKED DEVICE UNSOLICITED RESULTS Final Result Performing Organization Address City/[facility]/ZIP Co de Phone Number [facility] [address] [place] [address] * (ABNORMAL) POCT glucose meter (05/15/2025 4:52 PM EST) [facility] POCT Glucose 270(H) 74 - 99 mg/dL 05/15/2025 4:53 PM EST [facility] Comment:Accuracy of a glucos e result [...] for testing. Comment 05/15/2025 4:53 PM EST [facility] Spinning Frame Changer ID Char Hinojosa 05/15/2025 4:53 PM EST [facility] Device ID [id number] 05/15/2025 4:53 PM EST [facility] Specimen Type POC Capillary 05/15/2025 4:53 PM EST [facility] Blood Capillary blood specimen / Unknown 05/15/2025 4:52 PM EST 05/15/2025 4:53 PM EST Selin Lee MD LAB POINT OF CARE TE ST DOCKED DEVICE UNSOLICITED RESULTS Final Result Performing Organization Address City/State/[facility] Co de Phone Number [facility] [address] [place] [address] * (ABNORMAL) POCT glucose meter (05/15/2025 12:46 PM EST) [facility] POCT Glucose 233(H) 74 - 99 mg/dL 05/15/2025 12:48 PM EST [facility] Comment:Accuracy of a [...] for testing. Comment 05/15/2025 12:48 PM EST [facility] Spinning Frame Changer ID Santy Garcia 05/15/2025 12:48 PM EST [facility] Device ID [id number] 05/15/2025 12:48 PM EST [facility] Specimen Type POC Capillary 05/15/2025 12:48 PM EST [facility] Blood Capillary blood specimen / Unknown 05/15/2025 12:46 PM EST 05/15/2025 12:48 PM EST Selin Lee MD LAB POINT OF CARE TE ST DOCKED DEVICE UNSOLICITED RESULTS Final Result Performing Organization Address City/[facility] Co de Phone Number [facility] [address] [place] [address] * (ABNORMAL) POCT glucose meter (05/15/2025 11:31 [...] for testing. Comment 05/15/2025 11:33 AM EST [facility] Spinning Frame Changer ID Char Hinojosa 05/15/2025 11:33 AM EST [facility] Device ID [id number] 05/15/2025 11:33 AM EST [facility] Specimen Type POC Capillary 05/15/2025 11:33 AM EST [facility] Blood Capillary blood specimen / Unknown 05/15/2025 11:31 AM EST 05/15/2025 11:33 AM EST us Selin Lee MD LAB POINT OF CARE TE ST DOCKED DEVICE UNSOLICITED RESULTS Final Result Performing Organization Address City/[facility] Co de Phone Number [facility] [address] [place] [address] * (ABNORMAL) POCT glucose meter (05/15/2025 8:12 [...] for testing. Comment 05/15/2025 8:14 AM EST [facility] Spinning Frame Changer ID Char Hinojosa 05/15/2025 8:14 AM EST [facility] Device ID [id number] 05/15/2025 8:14 AM EST [facility] Specimen Type POC Capillary 05/15/2025 8:14 AM EST [facility] Blood Capillary blood specimen / Unknown 05/15/2025 8:12 AM EST 05/15/2025 8:14 AM EST Selin Lee MD LAB POINT OF CARE TE ST DOCKED DEVICE UNSOLICITED RESULTS Final Result [facility] [address] [place] [address] * (ABNORMAL) CBC and Differential (05/15/2025 2:24 AM EST) WBC Count 8.81 3.70 - 10.30 10*3/uL LAB HEMATOLOGY METHOD 05/15/2025 2:[address] [facility] RBC Count 4.49(L) 4.60 - 6.10 10*6/uL LAB HEMATOLOGY METHOD 05/15/2025 2:[address] [facility] HGB 9.9(L) 13.7 - 17.5 g/dL LAB HEMATOLOGY METHOD 05/15/2025 2:[address] [facility] HCT 33.3(L) 40.0 - 51.0 % LAB HEMATOLOGY METHOD 05/15/2025 2:[address] [facility] Platelet Count 286 155 - 369 10*3/uL LAB HEMATOLOGY METHOD 05/15/2025 2:[address] [facility] MCV 74(L) 79 - 98 fL LAB HEMATOLOGY METHOD 05/15/2025 2:[address] [facility] MCH 22.0(L) 26.0 - 32.0 pg LAB HEMATOLOGY METHOD 05/15/2025 2:[address] [facility] MCHC 29.7(L) 30.7 - 35.5 g/dL LAB HEMATOLOGY METHOD 05/15/2025 2:[address] [facility] RDW 17.8(H) 11.5 - 14.5 % LAB HEMATOLOGY METHOD 05/15/2025 2:41 AM [facility] MPV 9.4 8.8 - 12.5 fL LAB HEMATOLOGY METHOD 05/15/2025 2:41 AM [facility] nRBC 0.0 <=0.0 per 100 WBCs LAB HEMATOLOGY METHOD 05/15/2025 2:41 AM [facility] Differential Type Automated LAB HEMATOLOGY METHOD 05/15/2025 2:41 AM [facility] Neutrophils % 71 % LAB HEMATOLOGY METHOD 05/15/2025 2:41 AM [facility] Lymphocytes % 14 % LAB HEMATOLOGY METHOD 05/15/2025 2:41 AM [facility] Monocytes % 11 % LAB HEMATOLOGY METHOD 05/15/2025 2:41 AM [facility] Eosinophils % 3 % LAB HEMATOLOGY METHOD 05/15/2025 2:41 AM [facility] Basophils % 1 % LAB HEMATOLOGY METHOD 05/15/2025 2:41 AM [facility] Immature Granulocytes % 0 % LAB HEMATOLOGY METHOD 05/15/2025 2:41 AM [facility] Neutrophils Absolute 6.25(H) 1.60 - 6.10 10*3/uL LAB HEMATOLOGY METHOD 05/15/2025 2:41 AM [facility] Lymphocytes Absolute 1.27 1.20 - 3.90 10*3/uL LAB HEMATOLOGY METHOD 05/15/2025 2:41 AM [facility] Monocytes Absolute 0.95(H) 0.30 - 0.90 10*3/uL LAB HEMATOLOGY METHOD 05/15/2025 2:41 AM [facility] Eosinophils Absolute 0.27 0.00 - 0.50 10*3/uL LAB HEMATOLOGY METHOD 05/15/2025 2:41 AM [facility] Basophils Absolute 0.04 0.00 - 0.10 10*3/uL LAB HEMATOLOGY METHOD 05/15/2025 2:41 AM [facility] Immature Granulocytes Absolute 0.03 0.00 - 0.06 10*3/uL LAB HEMATOLOGY METHOD 05/15/2025 2:41 AM [facility] Blood Venous blood specimen / Unknown Venipuncture / Unknown 05/15/2025 2:24 AM EST 05/15/2025 2:[address] [facility] - 05/15/2025 2:41 AM EST Therapeutic decision making should be based on absolute values, rather than percentages. us Selin Lee MD LAB BLOOD ORDERABLES Final Re sult Performing Organization Address [facility] Co de Phone Number [facility] [address] [place] [address] * (ABNORMAL) Magnesium, Plasma (05/15/2025 2:24 AM EST) Magnesium, Plasma 1.8(L) 1.9 - 2.4 mg/dL 05/15/2025 3:[address] [facility] Blood Venous blood specimen / Unknown Venipuncture / Unknown 05/15/2025 2:24 AM EST 05/15/2025 2:32 AM EST us Selin Lee MD LAB BLOOD ORDERABLES Final Re sult Performing Organization Address [facility] Co de Phone Number [facility] [address] [place] [address] * (ABNORMAL) Basic Metabolic Panel, Plasma (05/15/2025 2:24 AM EST) Glucose, Plasma 162(H) 74 - 99 mg/dL 05/15/2025 3:[address] [facility] BUN, Plasma 15 7 - 21 mg/dL 05/15/2025 3:[address] [facility] Creatinine, Plasma 0.91 0.70 - 1.20 mg/dL 05/15/2025 3:[address] [facility] BUN/Creatinine Ratio 16 05/15/2025 3:[address] [facility] Sodium, Plasma 133(L) 136 - 145 mmol/L 05/15/2025 3:[address] [facility] Potassium, Plasma 3.3(L) 3.6 - 4.9 mmol/L 05/15/2025 3:[address] [facility] Chloride, Plasma 87(L) 97 - 107 mmol/L 05/15/2025 3:[address] [facility] CO2, Plasma 37(H) 22 - 29 mmol/L 05/15/2025 3:[address] [facility] Anion Gap 9 6 - 16 mmol/L 05/15/2025 3:[address] [facility] Total Calcium, Plasma 9.2 8.9 - 10.2 mg/dL 05/15/2025 3:[address] [facility] eGFRcr 104.6 mL/min/1.7 3m*2 05/15/2025 3:[address] [facility] Comment:Reported eGFRcr in m L/min/1.73m2 is based the CKD-EPI 2020 equation that does not use a race coefficient. Blood Venous blood specimen / Unknown Venipuncture / Unknown 05/15/2025 2:24 AM EST 05/15/2025 2:32 AM EST us Selin Lee MD LAB BLOOD ORDERABLES Final Re sult Performing Organization Address City/[facility]/ZIP Co de Phone Number [facility] [address] [place] [address] * Phosphorus, Plasma (05/15/2025 2:24 AM EST) Phosphorus, Plasma 3.7 2.5 - 4.5 mg/dL 05/15/2025 3:[address] [facility] Blood Venous blood specimen / Unknown Venipuncture / Unknown 05/15/2025 2:24 AM EST 05/15/2025 2:32 AM EST us Selin Lee MD LAB BLOOD ORDERABLES Final Re sult [facility] [address] [place] [address] * (ABNORMAL) POCT glucose meter (05/14/2025 8:09 PM EST) POCT Glucose 194(H) 74 - 99 mg/dL 05/14/2025 8:11 PM EST [facility] Comment:Accuracy of a glucos e result [...] for testing. Comment 05/14/2025 8:11 PM EST [facility] Spinning Frame Changer ID Stella Coleman 05/14/20 8:11 PM EST [facility] Device ID [id number] 05/14/2025 8:11 PM EST [facility] Specimen Type POC Capillary 05/14/2025 8:11 PM EST [facility] Blood Capillary blood specimen / Unknown 05/14/2025 8:09 PM EST 05/14/2025 8:11 PM EST us Selin Lee MD LAB POINT OF CARE TE ST DOCKED DEVICE UNSOLICITED RESULTS Final Result Performing Organization Address City/[facility]/ZIP Co de Phone Number [facility] [address] [place] [address] * (ABNORMAL) POCT glucose meter (05/14/2025 5:10 PM EST) [facility] POCT Glucose 320(H) 74 - 99 mg/dL 05/14/2025 5:13 PM EST [facility] Comment:Accuracy of [...] 05/14/2025 5:13 PM EST [facility] Spinning Frame Changer ID Dunia Montgomery 05/14/2025 5:13 PM EST [facility] Device ID [id number] 05/14/2025 5:13 PM EST [facility] Specimen Type POC Capillary 05/14/2025 5:13 PM EST [facility] Blood Capillary blood specimen / Unknown 05/14/2025 5:10 PM EST 05/14/2025 5:13 PM EST us Selin Lee MD LAB POINT OF CARE TE ST DOCKED DEVICE UNSOLICITED RESULTS Final Result [facility] [address] [place] [address] * (ABNORMAL) POCT glucose meter (05/14/2025 12:15 PM EST) [facility] POCT Glucose 260(H) 74 - 99 mg/dL [...] for testing. Comment 05/14/2025 4:51 PM EST [facility] Spinning Frame Changer ID Manny Montgomerya 05/14/2025 4:51 PM EST [facility] Device ID [id number] 05/14/2025 4:51 PM EST [facility] Specimen Type POC Capillary 05/14/2025 4:51 PM EST [facility] Blood Capillary blood specimen / Unknown 05/14/2025 12:15 PM EST 05/14/2025 4:51 PM EST Selin Lee MD LAB POINT OF CARE TE ST DOCKED DEVICE UNSOLICITED RESULTS Final Result Performing Organization Address [facility] de Phone Number [facility] [address] [place] [address] * (ABNORMAL) POCT glucose meter (05/14/2025 8:30 AM EST) [facility] POCT Glucose 321(H) 74 - 99 mg/dL [...] 05/14/2025 8:33 AM EST [facility] Spinning Frame Changer ID Dunia Montgomery 05/14/2025 8:33 AM EST [facility] Device ID [id number] 05/14/2025 8:33 AM EST [facility] Specimen Type POC Capillary 05/14/2025 8:33 AM EST [facility] Blood Capillary blood specimen / Unknown 05/14/2025 8:30 AM EST 05/14/2025 8:33 AM EST Selin Lee MD LAB POINT OF CARE TE ST DOCKED DEVICE UNSOLICITED RESULTS Final Result Performing Organization Address City/[facility] Co de Phone Number [facility] [address] [place] [address] * (ABNORMAL) POCT glucose meter (05/14/2025 4:49 AM EST) Pathologist [facility] POCT Glucose 306(H) 74 - 99 mg/dL 05/31/2025 3:12 PM EST [facility] Comment:Accuracy of a glucos e result [...] for testing. Comment 05/31/2025 3:12 PM EST [facility] Spinning Frame Changer ID Asiya Nix 025 3:12 PM EST [facility] Device ID [id number] 05/31/2025 3:12 PM EST [facility] Specimen Type POC Capillary 05/31/2025 3:12 PM EST [facility] Blood Capillary blood specimen / Unknown 05/14/2025 4:49 AM EST 05/31/2025 3:12 PM EST us Wily Goyal DO LAB POINT OF CARE TE ST DOCKED DEVICE UNSOLICITED RESULTS Final Result Performing Organization Address City/[facility] Co de Phone Number [facility] [address] [place] [address] * (ABNORMAL) CBC and Differential (05/14/2025 1:45 AM EDT) WBC Count 7.88 3.70 - 10.30 10*3/uL LAB HEMATOLOGY METHOD 05/14/2025 2:[address] [facility] RBC Count 4.25(L) 4.60 - 6.10 10*6/uL LAB HEMATOLOGY METHOD 05/14/2025 2:[address] [facility] HGB 9.7(L) 13.7 - 17.5 g/dL LAB HEMATOLOGY METHOD 05/14/2025 2:[address] [facility] HCT 31.7(L) 40.0 - 51.0 % LAB HEMATOLOGY METHOD 05/14/2025 2:[address] [facility] Platelet Count 273 155 - 369 10*3/uL LAB HEMATOLOGY METHOD 05/14/2025 2:[address] [facility] MCV 75(L) 79 - 98 fL LAB HEMATOLOGY METHOD 05/14/2025 2:[address] [facility] MCH 22.8(L) 26.0 - 32.0 pg LAB HEMATOLOGY METHOD 05/14/2025 2:[address] [facility] MCHC 30.6(L) 30.7 - 35.5 g/dL LAB HEMATOLOGY METHOD 05/14/2025 2:[address] [facility] RDW 17.9(H) 11.5 - 14.5 % LAB HEMATOLOGY METHOD 05/14/2025 2:[address] [facility] MPV 9.6 8.8 - 12.5 fL LAB HEMATOLOGY METHOD 05/14/2025 2:47 AM [facility] nRBC 0.0 <=0.0 per 100 WBCs LAB HEMATOLOGY METHOD 05/14/2025 2:[address] [facility] Differential Type Automated LAB HEMATOLOGY METHOD 05/14/2025 2:47 AM [facility] Neutrophils % 66 % LAB HEMATOLOGY METHOD 05/14/2025 2:47 AM [facility] Lymphocytes % 18 % LAB HEMATOLOGY METHOD 05/14/2025 2:[address] [facility] Monocytes % 11 % LAB HEMATOLOGY METHOD 05/14/2025 2:[address] [facility] Eosinophils % 4 % LAB HEMATOLOGY METHOD 05/14/2025 2:47 AM [facility] Basophils % 1 % LAB HEMATOLOGY METHOD 05/14/2025 2:[address] [facility] Immature Granulocytes % 0 % LAB HEMATOLOGY METHOD 05/14/2025 2:[address] [facility] Neutrophils Absolute 5.20 1.60 - 6.10 10*3/uL LAB HEMATOLOGY METHOD 05/14/2025 2:[address] [facility] Lymphocytes Absolute 1.44 1.20 - 3.90 10*3/uL LAB HEMATOLOGY METHOD 05/14/2025 2:[address] [facility] Monocytes Absolute 0.85 0.30 - 0.90 10*3/uL LAB HEMATOLOGY METHOD 05/14/2025 2:[address] [facility] Eosinophils Absolute 0.30 0.00 - 0.50 10*3/uL LAB HEMATOLOGY METHOD 05/14/2025 2:[address] [facility] Basophils Absolute 0.06 0.00 - 0.10 10*3/uL LAB HEMATOLOGY METHOD 05/14/2025 2:[address] [facility] Immature Granulocytes Absolute 0.03 0.00 - 0.06 10*3/uL LAB HEMATOLOGY METHOD 05/14/2025 2:[address] [facility] Blood Venous blood specimen / Unknown Venipuncture / Unknown 05/14/2025 1:45 AM EDT 05/14/2025 2:[address] [facility] - 05/14/2025 2:47 AM EST Therapeutic decision making should be based on absolute values, rather than percentages. us Selin Lee MD LAB BLOOD ORDERABLES Final Re sult [facility] [address] [place] [address] * (ABNORMAL) Magnesium, Plasma (05/14/2025 1:45 AM EDT) Magnesium, Plasma 1.7(L) 1.9 - 2.4 mg/dL 05/14/2025 2:[address] [facility] Blood Venous blood specimen / Unknown Venipuncture / Unknown 05/14/2025 1:45 AM EDT 05/14/2025 2:25 AM EST us Selin Lee MD LAB BLOOD ORDERABLES Final Re sult [facility] [address] [place] [address] * (ABNORMAL) Basic Metabolic Panel, Plasma (05/14/2025 1:45 AM EDT) Glucose, Plasma 282(H) 74 - 99 mg/dL 05/14/2025 2:[address] [facility] BUN, Plasma 16 7 - 21 mg/dL 05/14/2025 2:[address] [facility] Creatinine, Plasma 0.85 0.70 - 1.20 mg/dL 05/14/2025 2:[address] [facility] BUN/Creatinine Ratio 19 05/14/2025 2:[address] [facility] Sodium, Plasma 132(L) 136 - 145 mmol/L 05/14/2025 2:[address] [facility] Potassium, Plasma 3.5(L) 3.6 - 4.9 mmol/L 05/14/2025 2:[address] [facility] Chloride, Plasma 87(L) 97 - 107 mmol/L 05/14/2025 2:[address] [facility] CO2, Plasma 34(H) 22 - 29 mmol/L 05/14/2025 2:[address] [facility] Anion Gap 11 6 - 16 mmol/L 05/14/2025 2:[address] [facility] Total Calcium, Plasma 9.2 8.9 - 10.2 mg/dL 05/14/2025 2:[address] [facility] eGFRcr 107.9 mL/min/1.7 3m*2 05/14/2025 2:[address] [facility] Comment:Reported eGFRcr in m L/min/1.73m2 is based the CKD-EPI 2020 equation that does not use a race coefficient. Blood Venous blood specimen / Unknown Venipuncture / Unknown 05/14/2025 1:45 AM EDT 05/14/2025 2:25 AM EST us Selin Lee MD LAB BLOOD ORDERABLES Final Re birdie Performing Organization Address City/[facility]/ZIP Co de Phone Number [facility] [address] [place] [address] * Phosphorus, Plasma (05/14/2025 1:45 AM EDT) Pathologist [facility] Phosphorus, Plasma 3.3 2.5 - 4.5 mg/dL 05/14/2025 2:[address] [facility] Blood Venous blood specimen / Unknown Venipuncture / Unknown 05/14/2025 1:45 AM EDT 05/14/2025 2:25 AM EST us Selin Lee MD LAB BLOOD ORDERABLES Final Re sult [facility] [address] [place] [address] * (ABNORMAL) POCT glucose meter (05/13/2025 7:59 PM EDT) Pathologist [facility] POCT Glucose 257(H) 74 - 99 mg/dL 05/31/2025 3:12 PM EST [facility] Comment:Accuracy of a glucos e result [...] Comment 05/31/2025 3:12 PM EST [facility] Spinning Frame Changer ID Stella Coleman 05/31/20 25 3:12 PM EST [facility] Device ID [id number] 05/31/2025 3:12 PM EST [facility] Specimen Type POC Capillary 05/31/2025 3:12 PM EST [facility] Blood Capillary blood specimen / Unknown 05/13/2025 7:59 PM EDT 05/31/2025 3:12 PM EST us Wily Goyal DO LAB POINT OF CARE TE ST DOCKED DEVICE UNSOLICITED RESULTS Final Result [facility] [address] [place] [address] * (ABNORMAL) POCT glucose meter (05/13/2025 4:58 PM EDT) [facility] POCT Glucose 217(H) 74 - 99 mg/dL 05/13/2025 5:00 PM EDT [facility] Comment:Accuracy of a [...] Comment 05/13/2025 5:00 PM EDT [facility] Spinning Frame Changer ID Priyanka Negrete 05/13/20 5:00 PM EDT [facility] Device ID [id number] 05/13/2025 5:00 PM EDT [facility] Specimen Type POC Capillary 05/13/2025 5:00 PM EDT [facility] Blood Capillary blood specimen / Unknown 05/13/2025 4:58 PM EDT 05/13/2025 5:00 PM EDT Selin Lee MD LAB POINT OF CARE TE ST DOCKED DEVICE UNSOLICITED RESULTS Final Result Performing Organization Address City/State/[facility] Co de Phone Number [facility] [address] [place] [address] * (ABNORMAL) POCT glucose meter (05/13/2025 11:37 AM EDT) [facility] POCT Glucose 255(H) 74 - 99 mg/dL 05/13/2025 11:41 AM EDT [facility] Comment:Accuracy of a [...] for testing. Comment 05/13/2025 11:41 AM EDT [facility] Spinning Frame Changer ID Priyanka Negrete 05/13/20 11:41 AM EDT [facility] Device ID [id number] 05/13/2025 11:41 AM EDT [facility] Specimen Type POC Capillary 05/13/2025 11:41 AM EDT [facility] Blood Capillary blood specimen / Unknown 05/13/2025 11:37 AM EDT 05/13/2025 11:41 AM EDT Selin Lee MD LAB POINT OF CARE TE ST DOCKED DEVICE UNSOLICITED RESULTS Final Result Performing Organization Address City/[facility]/ZIP Co de Phone Number [facility] [address] [place] [address] * (ABNORMAL) POCT glucose meter (05/13/2025 7:42 AM EDT) POCT Glucose 233(H) 74 - 99 mg/dL 05/13/2025 7:45 AM EDT [facility] Comment:Accuracy of a glucos e result [...] Comment 05/13/2025 7:45 AM EDT [facility] Spinning Frame Changer ID Priyanka Negrete 05/13/20 7:45 AM EDT [facility] Device ID [id number] 05/13/2025 7:45 AM EDT [facility] Specimen Type POC Capillary 05/13/2025 7:45 AM EDT [facility] Blood Capillary blood specimen / Unknown 05/13/2025 7:42 AM EDT 05/13/2025 7:45 AM EDT Selin Lee MD LAB POINT OF CARE TE ST DOCKED DEVICE UNSOLICITED RESULTS Final Result [facility] [address] [place] [address] * (ABNORMAL) CBC and Differential (05/13/2025 3:54 AM EDT) WBC Count 7.92 3.70 - 10.30 10*3/uL LAB HEMATOLOGY METHOD 05/13/2025 4:[address] [facility] RBC Count 4.40(L) 4.60 - 6.10 10*6/uL LAB HEMATOLOGY METHOD 05/13/2025 4:[address] [facility] HGB 9.9(L) 13.7 - 17.5 g/dL LAB HEMATOLOGY METHOD 05/13/2025 4:[address] [facility] HCT 33.0(L) 40.0 - 51.0 % LAB HEMATOLOGY METHOD 05/13/2025 4:[address] [facility] Platelet Count 276 155 - 369 10*3/uL LAB HEMATOLOGY METHOD 05/13/2025 4:[address] [facility] MCV 75(L) 79 - 98 fL LAB HEMATOLOGY METHOD 05/13/2025 4:[address] [facility] MCH 22.5(L) 26.0 - 32.0 pg LAB HEMATOLOGY METHOD 05/13/2025 4:[address] [facility] MCHC 30.0(L) 30.7 - 35.5 g/dL LAB HEMATOLOGY METHOD 05/13/2025 4:[address] [facility] RDW 17.8(H) 11.5 - 14.5 % LAB HEMATOLOGY METHOD 05/13/2025 4:[address] [facility] MPV 9.3 8.8 - 12.5 fL LAB HEMATOLOGY METHOD 05/13/2025 4:[address] [facility] nRBC 0.0 <=0.0 per 100 WBCs LAB HEMATOLOGY METHOD 05/13/2025 4:[address] [facility] Differential Type Automated LAB HEMATOLOGY METHOD 05/13/2025 4:[address] [facility] Neutrophils % 69 % LAB HEMATOLOGY METHOD 05/13/2025 4:[address] [facility] Lymphocytes % 17 % LAB HEMATOLOGY METHOD 05/13/2025 4:[address] [facility] Monocytes % 10 % LAB HEMATOLOGY METHOD 05/13/2025 4:[address] [facility] Eosinophils % 3 % LAB HEMATOLOGY METHOD 05/13/2025 4:[address] [facility] Basophils % 1 % LAB HEMATOLOGY METHOD 05/13/2025 4:[address] [facility] Immature Granulocytes % 0 % LAB HEMATOLOGY METHOD 05/13/2025 4:[address] [facility] Neutrophils Absolute 5.47 1.60 - 6.10 10*3/uL LAB HEMATOLOGY METHOD 05/13/2025 4:[address] [facility] Lymphocytes Absolute 1.33 1.20 - 3.90 10*3/uL LAB HEMATOLOGY METHOD 05/13/2025 4:[address] [facility] Monocytes Absolute 0.78 0.30 - 0.90 10*3/uL LAB HEMATOLOGY METHOD 05/13/2025 4:[address] [facility] Eosinophils Absolute 0.27 0.00 - 0.50 10*3/uL LAB HEMATOLOGY METHOD 05/13/2025 4:[address] [facility] Basophils Absolute 0.04 0.00 - 0.10 10*3/uL LAB HEMATOLOGY METHOD 05/13/2025 4:[address] [facility] Immature Granulocytes Absolute 0.03 0.00 - 0.06 10*3/uL LAB HEMATOLOGY METHOD 05/13/2025 4:[address] [facility] Blood Venous blood specimen / Unknown Venipuncture / Unknown 05/13/2025 3:54 AM EDT 05/13/2025 4:[address] [facility] - 05/13/2025 4:11 AM EDT Therapeutic decision making should be based on absolute values, rather than percentages. us Selin Lee MD LAB BLOOD ORDERABLES Final Re sult Performing Organization Address City/State/[facility] Co de Phone Number [facility] [address] [place] [address] * Magnesium, Plasma (05/13/2025 3:54 AM EDT) Magnesium, Plasma 1.9 1.9 - 2.4 mg/dL 05/13/2025 4:[address] [facility] Blood Venous blood specimen / Unknown Venipuncture / Unknown 05/13/2025 3:54 AM EDT 05/13/2025 4:01 AM EDT us Selin Lee MD LAB BLOOD ORDERABLES Final Re sult [facility] [address] [place] [address] * (ABNORMAL) Basic Metabolic Panel, Plasma (05/13/2025 3:54 AM EDT) Glucose, Plasma 238(H) 74 - 99 mg/dL 05/13/2025 4:[address] [facility] BUN, Plasma 16 7 - 21 mg/dL 05/13/2025 4:[address] [facility] Creatinine, Plasma 0.96 0.70 - 1.20 mg/dL 05/13/2025 4:[address] [facility] BUN/Creatinine Ratio 17 05/13/2025 4:[address] [facility] Sodium, Plasma 131(L) 136 - 145 mmol/L 05/13/2025 4:[address] [facility] Potassium, Plasma 3.3(L) 3.6 - 4.9 mmol/L 05/13/2025 4:[address] [facility] Chloride, Plasma 87(L) 97 - 107 mmol/L 05/13/2025 4:[address] [facility] CO2, Plasma 37(H) 22 - 29 mmol/L 05/13/2025 4:[address] [facility] Anion Gap 7 6 - 16 mmol/L 05/13/2025 4:[address] [facility] Total Calcium, Plasma 9.1 8.9 - 10.2 mg/dL 05/13/2025 4:[address] [facility] eGFRcr 98.1 mL/min/1.7 3m*2 05/13/2025 4:[address] [facility] Comment:Reported eGFRcr in m L/min/1.73m2 is based the CKD-EPI 2020 equation that does not use a race coefficient. Blood Venous blood specimen / Unknown Venipuncture / Unknown 05/13/2025 3:54 AM EDT 05/13/2025 4:01 AM EDT Selin Lee MD LAB BLOOD ORDERABLES Final Re sult Performing Organization Address City/State/[facility] Co de Phone Number [facility] [address] [place] [address] * Phosphorus, Plasma (05/13/2025 3:54 AM EDT) [facility] Phosphorus, Plasma 3.3 2.5 - 4.5 mg/dL 05/13/2025 4:[address] [facility] Blood Venous blood specimen / Unknown Venipuncture / Unknown 05/13/2025 3:54 AM EDT 05/13/2025 4:01 AM EDT us Selin Lee MD LAB BLOOD ORDERABLES Final Re sult Performing Organization Address [facility] Co de Phone Number [facility] [address] [place] [address] * (ABNORMAL) POCT glucose meter (05/12/2025 7:40 PM EDT) [facility] POCT Glucose 248(H) 74 - 99 mg/dL [...] 05/12/2025 7:42 PM EDT [facility] [employer] ID Coleman Stella 05/12/20 7:42 PM EDT [facility] Device ID [id number] 05/12/2025 7:42 PM EDT [facility] Specimen Type POC Capillary 05/12/2025 7:42 PM EDT [facility] Blood Capillary blood specimen / Unknown 05/12/2025 7:40 PM EDT 05/12/2025 7:42 PM EDT us Selin Lee MD LAB POINT OF CARE TE ST DOCKED DEVICE UNSOLICITED RESULTS Final Result Performing Organization Address City/[facility]/ZIP Co de Phone Number [facility] [address] [place] [address] * (ABNORMAL) POCT glucose meter (05/12/2025 4:36 PM EDT) [facility] POCT Glucose 235(H) 74 - 99 mg/dL [...] for testing. Comment 05/12/2025 4:38 PM EDT [facility] [employer] ID Char Hinojosa 05/12/2025 4:38 PM EDT [employer] [facility] Device ID [id number] 05/12/2025 4:38 PM EDT [facility] Specimen Type POC Capillary 05/12/2025 4:38 PM EDT [facility] Blood Capillary blood specimen / Unknown 05/12/2025 4:36 PM EDT 05/12/2025 4:38 PM EDT Selin Lee MD LAB POINT OF CARE TE ST DOCKED DEVICE UNSOLICITED RESULTS Final Result [facility] [address] [place] [address] * (ABNORMAL) POCT glucose meter (05/12/2025 11:30 AM EDT) [facility] POCT Glucose 315(H) 74 - 99 mg/dL [...] 05/12/2025 11:32 AM EDT [facility] [employer] ID Char Hinojosa 05/12/2025 11:32 AM EDT [employer] [facility] Device ID [id number] 05/12/2025 11:32 AM EDT [facility] Specimen Type POC Capillary 05/12/2025 11:32 AM EDT [facility] Blood Capillary blood specimen / Unknown 05/12/2025 11:30 AM EDT 05/12/2025 11:32 AM EDT us Selin Lee MD LAB POINT OF CARE TE ST DOCKED DEVICE UNSOLICITED RESULTS Final Result Performing Organization Address City/[facility]/ZIP Co de Phone Number [facility] [address] [place] [address] * (ABNORMAL) POCT glucose meter (05/12/2025 8:08 [...] Comment 05/12/2025 8:10 AM EDT [facility] Spinning Frame Changer ID Char Hinojosa 05/12/2025 8:10 AM EDT [facility] Device ID [id number] 05/12/2025 8:10 AM EDT [facility] Specimen Type POC Capillary 05/12/2025 8:10 AM EDT [facility] Blood Capillary blood specimen / Unknown 05/12/2025 8:08 AM EDT 05/12/2025 8:10 AM EDT us Selin Lee MD LAB POINT OF CARE TE ST DOCKED DEVICE UNSOLICITED RESULTS Final Result Performing Organization Address City/[facility]/ZIP Co de Phone Number [facility]ALTH[facility]ARE [facility] [address] [place] [address] * (ABNORMAL) CBC and Differential (05/12/2025 3:56 AM EDT) WBC Count 7.24 3.70 - 10.30 10*3/uL LAB HEMATOLOGY METHOD 05/12/2025 4:[address] [facility] RBC Count 4.28(L) 4.60 - 6.10 10*6/uL LAB HEMATOLOGY METHOD 05/12/2025 4:[address] [facility] HGB 9.4(L) 13.7 - 17.5 g/dL LAB HEMATOLOGY METHOD 05/12/2025 4:[address] [facility] HCT 31.8(L) 40.0 - 51.0 % LAB HEMATOLOGY METHOD 05/12/2025 4:[address] [facility] Platelet Count 266 155 - 369 10*3/uL LAB HEMATOLOGY METHOD 05/12/2025 4:[address] [facility] MCV 74(L) 79 - 98 fL LAB HEMATOLOGY METHOD 05/12/2025 4:[address] [facility] MCH 22.0(L) 26.0 - 32.0 pg LAB HEMATOLOGY METHOD 05/12/2025 4:[address] [facility] MCHC 29.6(L) 30.7 - 35.5 g/dL LAB HEMATOLOGY METHOD 05/12/2025 4:[address] [facility] RDW 18.0(H) 11.5 - 14.5 % LAB HEMATOLOGY METHOD 05/12/2025 4:[address] [facility] MPV 9.6 8.8 - 12.5 fL LAB HEMATOLOGY METHOD 05/12/2025 4:[address] [facility] nRBC 0.0 <=0.0 per 100 WBCs LAB HEMATOLOGY METHOD 05/12/2025 4:[address] [facility] Differential Type Automated LAB HEMATOLOGY METHOD 05/12/2025 4:[address] [facility] Neutrophils % 71 % LAB HEMATOLOGY METHOD 05/12/2025 4:[address] [facility] Lymphocytes % 16 % LAB HEMATOLOGY METHOD 05/12/2025 4:[address] [facility] Monocytes % 9 % LAB HEMATOLOGY METHOD 05/12/2025 4:[address] [facility] Eosinophils % 3 % LAB HEMATOLOGY METHOD 05/12/2025 4:[address] [facility] Basophils % 1 % LAB HEMATOLOGY METHOD 05/12/2025 4:[address] [facility] Immature Granulocytes % 0 % LAB HEMATOLOGY METHOD 05/12/2025 4:[address] [facility] Neutrophils Absolute 5.14 1.60 - 6.10 10*3/uL LAB HEMATOLOGY METHOD 05/12/2025 4:[address] [facility] Lymphocytes Absolute 1.15(L) 1.20 - 3.90 10*3/uL LAB HEMATOLOGY METHOD 05/12/2025 4:[address] [facility] Monocytes Absolute 0.66 0.30 - 0.90 10*3/uL LAB HEMATOLOGY METHOD 05/12/2025 4:[address] [facility] Eosinophils Absolute 0.22 0.00 - 0.50 10*3/uL LAB HEMATOLOGY METHOD 05/12/2025 4:[address] [facility] Basophils Absolute 0.05 0.00 - 0.10 10*3/uL LAB HEMATOLOGY METHOD 05/12/2025 4:[address] [facility] Immature Granulocytes Absolute 0.02 0.00 - 0.06 10*3/uL LAB HEMATOLOGY METHOD 05/12/2025 4:[address] [facility] Blood Venous blood specimen / Unknown Venipuncture / Unknown 05/12/2025 3:56 AM EDT 05/12/2025 4:[address] [facility] - 05/12/2025 4:15 AM EDT Therapeutic decision making should be based on absolute values, rather than percentages. us Selin Lee MD LAB BLOOD ORDERABLES Final Re sult [facility] [address] [place] [address] * (ABNORMAL) Magnesium, Plasma (05/12/2025 3:56 AM EDT) Magnesium, Plasma 1.7(L) 1.9 - 2.4 mg/dL 05/12/2025 4:[address] [facility] Blood Venous blood specimen / Unknown Venipuncture / Unknown 05/12/2025 3:56 AM EDT 05/12/2025 4:03 AM EDT us Selin Lee MD LAB BLOOD ORDERABLES Final Re sult [facility] [address] [place] [address] * (ABNORMAL) Basic Metabolic Panel, Plasma (05/12/2025 3:56 AM EDT) Glucose, Plasma 383(H) 74 - 99 mg/dL 05/12/2025 4:[address] [facility] BUN, Plasma 18 7 - 21 mg/dL 05/12/2025 4:[address] [facility] Creatinine, Plasma 0.86 0.70 - 1.20 mg/dL 05/12/2025 4:[address] [facility] BUN/Creatinine Ratio 21 05/12/2025 4:[address] [facility] Sodium, Plasma 130(L) 136 - 145 mmol/L 05/12/2025 4:[address] [facility] Potassium, Plasma 3.2(L) 3.6 - 4.9 mmol/L 05/12/2025 4:[address] [facility] Chloride, Plasma 85(L) 97 - 107 mmol/L 05/12/2025 4:[address] [facility] CO2, Plasma 36(H) 22 - 29 mmol/L 05/12/2025 4:[address] [facility] Anion Gap 9 6 - 16 mmol/L 05/12/2025 4:[address] [facility] Total Calcium, Plasma 8.9 8.9 - 10.2 mg/dL 05/12/2025 4:[address] [facility] eGFRcr 107.5 mL/min/1.7 3m*2 05/12/2025 4:[address] [facility] Comment:Reported eGFRcr in m L/min/1.73m2 is based the CKD-EPI 2020 equation that does not use a race coefficient. Blood Venous blood specimen / Unknown Venipuncture / Unknown 05/12/2025 3:56 AM EDT 05/12/2025 4:03 AM EDT us Selin Lee MD LAB BLOOD ORDERABLES Final Re sult Performing Organization Address City/[facility]/ZIP Co de Phone Number [facility] [address] [place] [address] * Phosphorus, Plasma (05/12/2025 3:56 AM EDT) [facility] Phosphorus, Plasma 2.8 2.5 - 4.5 mg/dL 05/12/2025 4:[address] [facility] Blood Venous blood specimen / Unknown Venipuncture / Unknown 05/12/2025 3:56 AM EDT 05/12/2025 4:03 AM EDT us Selin Lee MD LAB BLOOD ORDERABLES Final Re sult Performing Organization Address [facility] de Phone Number [facility] [address] [place] [address] * (ABNORMAL) POCT glucose meter (05/12/2025 3:11 AM EDT) [facility] POCT Glucose 348(H) 74 - 99 mg/dL [...] 05/12/2025 3:13 AM EDT [facility] Spinning Frame Changer ID Mathew [email or web address] 05/12/2025 3:13 AM EDT [facility] Device ID [id number] 05/12/2025 3:13 AM EDT [facility] Specimen Type POC Capillary 05/12/2025 3:13 AM EDT [facility] Blood Capillary blood specimen / Unknown 05/12/2025 3:11 AM EDT 05/12/2025 3:13 AM EDT us Selin Lee MD LAB POINT OF CARE TE ST DOCKED DEVICE UNSOLICITED RESULTS Final Result Performing Organization Address [facility] Co de Phone Number [facility] [address] [place] [address] * (ABNORMAL) POCT glucose meter (05/11/2025 7:57 PM EDT) Pathologist [facility] POCT Glucose 272(H) 74 - 99 mg/dL [...] Comment 05/11/2025 8:02 PM EDT [facility] Spinning Frame Changer ID Joel Carmona 05/11/2025 8:02 PM EDT [facility] Device ID [id number] 05/11/2025 8:02 PM EDT [facility] Specimen Type POC Capillary 05/11/2025 8:02 PM EDT [facility] Blood Capillary blood specimen / Unknown 05/11/2025 7:57 PM EDT 05/11/2025 8:02 PM EDT Selin Lee MD LAB POINT OF CARE TE ST DOCKED DEVICE UNSOLICITED RESULTS Final Result Performing Organization Address [facility] Co de Phone Number [facility] [address] [place] [address] * (ABNORMAL) POCT glucose meter (05/11/2025 5:05 PM EDT) Pathologist [facility] POCT Glucose 258(H) 74 - 99 [...] 05/11/2025 5:07 PM EDT [facility] Spinning Frame Changer ID Char Hinojosa 05/11/2025 5:07 PM EDT [facility] Device ID [id number] 05/11/2025 5:07 PM EDT [facility] Specimen Type POC Capillary 05/11/2025 5:07 PM EDT [facility] Blood Capillary blood specimen / Unknown 05/11/2025 5:05 PM EDT 05/11/2025 5:07 PM EDT Selin Lee MD LAB POINT OF CARE TE ST DOCKED DEVICE UNSOLICITED RESULTS Final Result Performing Organization Address City/[facility]/ZIP Co de Phone Number [facility] [address] [place] [address] * (ABNORMAL) POCT glucose meter (05/11/2025 12:13 PM EDT) Pathologist [facility] POCT Glucose 240(H) 74 - 99 [...] Comment 05/11/2025 12:15 PM EDT [facility] Spinning Frame Changer ID Char Hinojosa 05/11/2025 12:15 PM EDT [facility] Device ID [id number] 05/11/2025 12:15 PM EDT [facility] Specimen Type POC Capillary 05/11/2025 12:15 PM EDT [facility] Blood Capillary blood specimen / Unknown 05/11/2025 12:13 PM EDT 05/11/2025 12:15 PM EDT us Selin Lee MD LAB POINT OF CARE TE ST DOCKED DEVICE UNSOLICITED RESULTS Final Result Performing Organization Address City/[facility]/ZIP Co de Phone Number [facility] [address] [place] [address] * (ABNORMAL) POCT glucose meter (05/11/2025 7:57 [...] Comment 05/11/2025 7:59 AM EDT [facility] Spinning Frame Changer ID Char Hinojosa 05/11/2025 7:59 AM EDT [facility] Device ID [id number] 05/11/2025 7:59 AM EDT [facility] Specimen Type POC Capillary 05/11/2025 7:59 AM EDT [facility] Blood Capillary blood specimen / Unknown 05/11/2025 7:57 AM EDT 05/11/2025 7:59 AM EDT Selin Lee MD LAB POINT OF CARE TE ST DOCKED DEVICE UNSOLICITED RESULTS Final Result Performing Organization Address City/State/[facility] Co de Phone Number HE[facility]ARE [facility] [address] [place] [address] * ECG Adult (05/11/2025 6:11 AM EDT) Pathologist [facility] EKG DIAGNOSIS CLASS Abnormal MUSE ECG Ventricular Rate 59 BPM MUSE ECG Atrial Rate 59 BPM MUSE ECG PA Interval 176 ms MUSE ECG QRSD Interval 160 ms MUSE ECG QT Interval 520 ms MUSE ECG QTC Interval 514 ms MUSE ECG P Hampton 21 degrees MUSE ECG R [place] -32 degrees MUSE ECG T Wave [place] -9 degrees MUSE ECG Diagnosis Sinus bradycardia [...] MUSE ECG Diagnosis Confirmed by Tone Lainez ([id number]) on 05/12/2025 11:35:23 AM MUSE ECG 05/11/2025 6:11 AM EDT 05/12/2025 11:35 AM EDT us Selin Lee MD ECG ORDERABLES Final Result Performing Organization Address City/[facility]/ZIP Co de Phone Number MUSE ECG [...] Comment 05/11/2025 3:45 AM EDT [facility] Spinning Frame Changer ID Kaylin Barron 05/11/2025 3:45 AM EDT [facility] Device ID [id number] 05/11/2025 3:45 AM EDT [facility] Specimen Type POC Capillary 05/11/2025 3:45 AM EDT [facility] Blood Capillary blood specimen / Unknown 05/11/2025 3:42 AM EDT 05/11/2025 3:45 AM EDT us Selin Lee MD LAB POINT OF CARE TE ST DOCKED DEVICE UNSOLICITED RESULTS Final Result Performing Organization Address City/[facility] Co de Phone Number [facility] [address] [place] [address] * (ABNORMAL) CBC and Differential (05/11/2025 3:24 AM EDT) WBC Count 6.72 3.70 - 10.30 10*3/uL LAB HEMATOLOGY METHOD 05/11/2025 3:[address] [facility] RBC Count 4.13(L) 4.60 - 6.10 10*6/uL LAB HEMATOLOGY METHOD 05/11/2025 3:[address] [facility] HGB 9.5(L) 13.7 - 17.5 g/dL LAB HEMATOLOGY METHOD 05/11/2025 3:[address] [facility] HCT 31.1(L) 40.0 - 51.0 % LAB HEMATOLOGY METHOD 05/11/2025 3:[address] [facility] Platelet Count 253 155 - 369 10*3/uL LAB HEMATOLOGY METHOD 05/11/2025 3:[address] [facility] MCV 75(L) 79 - 98 fL LAB HEMATOLOGY METHOD 05/11/2025 3:[address] [facility] MCH 23.0(L) 26.0 - 32.0 pg LAB HEMATOLOGY METHOD 05/11/2025 3:[address] [facility] MCHC 30.5(L) 30.7 - 35.5 g/dL LAB HEMATOLOGY METHOD 05/11/2025 3:[address] [facility] RDW 17.8(H) 11.5 - 14.5 % LAB HEMATOLOGY METHOD 05/11/2025 3:[address] [facility] MPV 9.5 8.8 - 12.5 fL LAB HEMATOLOGY METHOD 05/11/2025 3:[address] [facility] nRBC 0.0 <=0.0 per 100 WBCs LAB HEMATOLOGY METHOD 05/11/2025 3:[address] [facility] Differential Type Automated LAB HEMATOLOGY METHOD 05/11/2025 3:[address] [facility] Neutrophils % 68 % LAB HEMATOLOGY METHOD 05/11/2025 3:[address] [facility] Lymphocytes % 17 % LAB HEMATOLOGY METHOD 05/11/2025 3:[address] [facility] Monocytes % 11 % LAB HEMATOLOGY METHOD 05/11/2025 3:[address] [facility] Eosinophils % 3 % LAB HEMATOLOGY METHOD 05/11/2025 3:[address] [facility] Basophils % 1 % LAB HEMATOLOGY METHOD 05/11/2025 3:[address] [facility] Immature Granulocytes % 0 % LAB HEMATOLOGY METHOD 05/11/2025 3:[address] [facility] Neutrophils Absolute 4.61 1.60 - 6.10 10*3/uL LAB HEMATOLOGY METHOD 05/11/2025 3:[address] [facility] Lymphocytes Absolute 1.11(L) 1.20 - 3.90 10*3/uL LAB HEMATOLOGY METHOD 05/11/2025 3:[address] [facility] Monocytes Absolute 0.72 0.30 - 0.90 10*3/uL LAB HEMATOLOGY METHOD 05/11/2025 3:[address] [facility] Eosinophils Absolute 0.21 0.00 - 0.50 10*3/uL LAB HEMATOLOGY METHOD 05/11/2025 3:[address] [facility] Basophils Absolute 0.05 0.00 - 0.10 10*3/uL LAB HEMATOLOGY METHOD 05/11/2025 3:[address] [facility] Immature Granulocytes Absolute 0.02 0.00 - 0.06 10*3/uL LAB HEMATOLOGY METHOD 05/11/2025 3:[address] [facility] Blood Venous blood specimen / Unknown Venipuncture / Unknown 05/11/2025 3:24 AM EDT 05/11/2025 3:[address] [facility] - 05/11/2025 3:42 AM EDT Therapeutic decision making should be based on absolute values, rather than percentages. us Selin Lee MD LAB BLOOD ORDERABLES Final Re sult Performing Organization Address [facility]/ZIP Co de Phone Number [facility] [address] [place] [address] * (ABNORMAL) Magnesium, Plasma (05/11/2025 3:24 AM EDT) Magnesium, Plasma 1.8(L) 1.9 - 2.4 mg/dL 05/11/2025 3:[address] [facility] Blood Venous blood specimen / Unknown Venipuncture / Unknown 05/11/2025 3:24 AM EDT 05/11/2025 3:30 AM EDT us Selin Lee MD LAB BLOOD ORDERABLES Final Re sult Performing Organization Address City/[facility]/ZIP Co de Phone Number [facility] [address] [place] [address] * (ABNORMAL) Basic Metabolic Panel, Plasma (05/11/2025 3:24 AM EDT) Glucose, Plasma 338(H) 74 - 99 mg/dL 05/11/2025 3:[address] [facility] BUN, Plasma 18 7 - 21 mg/dL 05/11/2025 3:[address] [facility] Creatinine, Plasma 0.86 0.70 - 1.20 mg/dL 05/11/2025 3:[address] [facility] BUN/Creatinine Ratio 21 05/11/2025 3:[address] [facility] Sodium, Plasma 131(L) 136 - 145 mmol/L 05/11/2025 3:[address] [facility] Potassium, Plasma 3.2(L) 3.6 - 4.9 mmol/L 05/11/2025 3:[address] [facility] Chloride, Plasma 85(L) 97 - 107 mmol/L 05/11/2025 3:[address] [facility] CO2, Plasma 39(H) 22 - 29 mmol/L 05/11/2025 3:[address] [facility] Anion Gap 7 6 - 16 mmol/L 05/11/2025 3:[address] [facility] Total Calcium, Plasma 9.1 8.9 - 10.2 mg/dL 05/11/2025 3:[address] [facility] eGFRcr 107.5 mL/min/1.7 3m*2 05/11/2025 3:[address] [facility] Comment:Reported eGFRcr in m L/min/1.73m2 is based the CKD-EPI 2020 equation that does not use a race coefficient. Blood Venous blood specimen / Unknown Venipuncture / Unknown 05/11/2025 3:24 AM EDT 05/11/2025 3:30 AM EDT us Selin Lee MD LAB BLOOD ORDERABLES Final Re sult [facility] [address] [place] [address] * Phosphorus, Plasma (05/11/2025 3:24 AM EDT) [facility] Phosphorus, Plasma 3.1 2.5 - 4.5 mg/dL 05/11/2025 3:[address] [facility] Blood Venous blood specimen / Unknown Venipuncture / Unknown 05/11/2025 3:24 AM EDT 05/11/2025 3:30 AM EDT us Selin Lee MD LAB BLOOD ORDERABLES Final Re sult Performing Organization Address City/[facility]/ZIP Co de Phone Number [facility] [address] [place] [address] * (ABNORMAL) POCT glucose meter (05/10/2025 7:07 PM EDT) [facility] POCT Glucose 398(H) 74 - 99 mg/dL [...] Comment 05/10/2025 7:10 PM EDT [facility] Spinning Frame Changer ID Char Hinojosa 05/10/2025 7:10 PM EDT [facility] Device ID [id number] 05/10/2025 7:10 PM EDT [facility] Specimen Type POC Capillary 05/10/2025 7:10 PM EDT [facility] Blood Capillary blood specimen / Unknown 05/10/2025 7:07 PM EDT 05/10/2025 7:10 PM EDT us Selin Lee MD LAB POINT OF CARE TE ST DOCKED DEVICE UNSOLICITED RESULTS Final Result Performing Organization Address City/[facility]/ZIP Co de Phone Number [facility] [address] [place] [address] * (ABNORMAL) POCT glucose meter (05/10/2025 4:55 PM EDT) [facility] POCT Glucose 418(H) 74 - 99 mg/dL [...] for testing. Comment 05/10/2025 4:57 PM EDT [facility] Spinning Frame Changer ID Char Hinojosa 05/10/2025 4:57 PM EDT [facility] Device ID [id number] 05/10/2025 4:57 PM EDT [facility] Specimen Type POC Capillary 05/10/2025 4:57 PM EDT [facility] Blood Capillary blood specimen / Unknown 05/10/2025 4:55 PM EDT 05/10/2025 4:57 PM EDT Selin Lee MD LAB POINT OF CARE TE ST DOCKED DEVICE UNSOLICITED RESULTS Final Result [facility] [address] [place] [address] * (ABNORMAL) POCT glucose meter (05/10/2025 11:41 AM EDT) [facility] POCT Glucose 348(H) 74 - 99 mg/dL [...] for testing. Comment 05/10/2025 11:43 AM EDT [facility] Spinning Frame Changer ID Char Hinojosa 05/10/2025 11:43 AM EDT [facility] Device ID [id number] 05/10/2025 11:43 AM EDT [facility] Specimen Type POC Capillary 05/10/2025 11:43 AM EDT [facility] Blood Capillary blood specimen / Unknown 05/10/2025 11:41 AM EDT 05/10/2025 11:43 AM EDT us Selin Lee MD LAB POINT OF CARE TE ST DOCKED DEVICE UNSOLICITED RESULTS Final Result [facility] [address] [place] [address] * ECG 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/2025 11:20 AM EDT) EKG DIAGNOSIS CLASS Abnormal MUSE ECG Ventricular Rate 65 BPM MUSE ECG Atrial Rate 65 BPM MUSE ECG PA Interval 198 ms MUSE ECG QRSD Interval 154 ms MUSE ECG QT Interval 508 ms MUSE ECG QTC Interval 528 ms MUSE ECG P Hampton 66 degrees MUSE ECG R [place] -39 degrees MUSE ECG T Wave [place] -16 degrees MUSE ECG Diagnosis Normal sinus rhythm with sinus arrhythmia MUSE ECG Diagnosis Left axis deviation MUSE ECG Diagnosis Right bundle branch block MUSE ECG Diagnosis Minimal voltage criteria for LVH, may be normal variant ( R in aVL ) MUSE ECG Diagnosis Abnormal ECG MUSE ECG Diagnosis MUSE ECG Diagnosis Confirmed by Manas Mccauley ([id number]) on 05/10/2025 3:20:48 PM MUSE ECG 05/10/2025 11:2 0 AM EDT 05/10/2025 3:20 PM EDT us Selin Lee MD ECG ORDERABLES Final Result Performing Organization Address City/[facility] Co de Phone Number MUSE ECG * (ABNORMAL) POCT glucose meter (05/10/2025 7:30 AM EDT) Pathologist [facility] POCT Glucose 332(H) 74 - 99 mg/dL 05/10/2025 7:33 AM EDT [facility] Comment:Accuracy of a glucos e result [...] for testing. Comment 05/10/2025 7:33 AM EDT [facility] Spinning Frame Changer ID Char Hinojosa 05/10/2025 7:33 AM EDT HEALTH[facility]ARE LAB Device ID [id number] 05/10/2025 7:33 AM EDT [facility] Specimen Type POC Capillary 05/10/2025 7:33 AM EDT [facility] Blood Capillary blood specimen / Unknown 05/10/2025 7:30 AM EDT 05/10/2025 7:33 AM EDT Selin Lee MD LAB POINT OF CARE TE ST DOCKED DEVICE UNSOLICITED RESULTS Final Result Performing Organization Address City/[facility]/ZIP Co de Phone Number [facility] [address] [place] [address] * ECG 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/2025 6:14 AM EDT) Pathologist [facility] EKG DIAGNOSIS CLASS Abnormal MUSE ECG Ventricular Rate 56 BPM MUSE ECG Atrial Rate 56 BPM MUSE ECG PA Interval 196 ms MUSE ECG QRSD Interval 164 ms MUSE ECG QT Interval 508 ms MUSE ECG QTC Interval 490 ms MUSE ECG P [place] 74 degrees MUSE ECG R [place] -33 degrees MUSE ECG T Wave [place] -10 degrees MUSE ECG Diagnosis Sinus bradycardia with sinus arrhythmia MUSE ECG Diagnosis Left axis deviation MUSE ECG Diagnosis Right bundle branch block MUSE ECG Diagnosis T wave abnormality, consider lateral ischemia MUSE ECG Diagnosis Abnormal ECG MUSE ECG Diagnosis MUSE ECG Diagnosis Confirmed by Manas Mccauley ([id number]) on 05/10/2025 2:45:37 PM MUSE ECG 05/10/2025 6:14 AM EDT 05/10/2025 2:45 PM EDT Selin Lee MD ECG ORDERABLES Final Result Performing Organization Address City/[facility]/ZIP Co de Phone Number MUSE ECG * (ABNORMAL) POCT glucose meter (05/10/2025 4:00 AM EDT) [facility] POCT Glucose 377(H) 74 - 99 mg/dL [...] Comment 05/10/2025 4:02 AM EDT [facility] Spinning Frame Changer ID Maribell Saeed 4:02 AM EDT [facility] LAB Device ID [id number] 05/10/2025 4:02 AM EDT [facility] Specimen Type POC Capillary 05/10/2025 4:02 AM EDT [facility] Blood Capillary blood specimen / Unknown 05/10/2025 4:00 AM EDT 05/10/2025 4:02 AM EDT Diane Guzman MD LAB POINT OF CARE T EST DOCKED DEVICE UNSOLICITED RESULTS Final Result Performing Organization Address City/State/[facility] de Phone Number [facility] [address] [place] [address] * (ABNORMAL) POCT glucose meter (05/09/2025 8:37 PM EDT) [facility] POCT Glucose 296(H) 74 - 99 mg/dL [...] Comment 05/09/2025 8:39 PM EDT [facility] Spinning Frame Changer ID Maribell Saeed 8:39 PM EDT [facility] Device ID [id number] 05/09/2025 8:39 PM EDT [facility] Specimen Type POC Capillary 05/09/2025 8:39 PM EDT [facility] Blood Capillary blood specimen / Unknown 05/09/2025 8:37 PM EDT 05/09/2025 8:39 PM EDT us Diane Guzman MD LAB POINT OF CARE T EST DOCKED DEVICE UNSOLICITED RESULTS Final Result [facility] [address] [place] [address] * Magnesium (05/09/2025 5:54 PM EDT) Magnesium, Plasma 1.9 1.9 - 2.4 mg/dL 05/09/2025 6:[address] [facility] Blood Venous blood specimen / Unknown Venipuncture / Unknown 05/09/2025 5:54 PM EDT 05/09/2025 6:25 PM EDT us Selin Lee MD LAB BLOOD ORDERABLES Final Re sult Performing Organization Address [facility]/ZIP Co de Phone Number [facility] [address] [place] [address] * (ABNORMAL) Basic metabolic panel (05/09/2025 5:54 PM EDT) Glucose, Plasma 416(H) 74 - 99 mg/dL 05/09/2025 6:[address] [facility] BUN, Plasma 17 7 - 21 mg/dL 05/09/2025 6:[address] [facility] Creatinine, Plasma 0.81 0.70 - 1.20 mg/dL 05/09/2025 6:[address] [facility] BUN/Creatinine Ratio 21 05/09/2025 6:[address] [facility] Sodium, Plasma 130(L) 136 - 145 mmol/L 05/09/2025 6:[address] [facility] Potassium, Plasma 3.1(L) 3.6 - 4.9 mmol/L 05/09/2025 6:[address] [facility] Chloride, Plasma 84(L) 97 - 107 mmol/L 05/09/2025 6:[address] [facility] CO2, Plasma 35(H) 22 - 29 mmol/L 05/09/2025 6:[address] [facility] Anion Gap 11 6 - 16 mmol/L 05/09/2025 6:[address] [facility] Total Calcium, Plasma 9.1 8.9 - 10.2 mg/dL 05/09/2025 6:[address] [facility] eGFRcr 109.4 mL/min/1.7 3m*2 05/09/2025 6:[address] [facility] Comment:Reported eGFRcr in m L/min/1.73m2 is based the CKD-EPI 2020 equation that does not use a race coefficient. Blood Venous blood specimen / Unknown Venipuncture / Unknown 05/09/2025 5:54 PM EDT 05/09/2025 6:25 PM EDT us Selin Lee MD LAB BLOOD ORDERABLES Final Re sult Performing Organization Address City/[facility]/ZIP Co de Phone Number [facility] [address] [place] [address] * (ABNORMAL) POCT glucose meter (05/09/2025 5:17 PM EDT) POCT Glucose 398(H) 74 - 99 mg/dL 05/09/2025 5:20 PM EDT [facility] Comment:Accuracy of a [...] Comment 05/09/2025 5:20 PM EDT [facility] Spinning Frame Changer ID Char Hinojosa 05/09/2025 5:20 PM EDT [facility] Device ID [id number] 05/09/2025 5:20 PM EDT [facility] Specimen Type POC Capillary 05/09/2025 5:20 PM EDT [facility] Blood Capillary blood specimen / Unknown 05/09/2025 5:17 PM EDT 05/09/2025 5:20 PM EDT us Diane Guzman MD LAB POINT OF CARE T EST DOCKED DEVICE UNSOLICITED RESULTS Final Result Performing Organization Address City/[facility]/ZIP Co de Phone Number [facility] [address] [place] [address] * ECG Adult (05/09/2025 12:34 PM EDT) EKG DIAGNOSIS CLASS Abnormal MUSE ECG Ventricular Rate 75 BPM MUSE ECG Atrial Rate 75 BPM MUSE ECG PA Interval 176 ms MUSE ECG QRSD Interval 164 ms MUSE ECG QT Interval 454 ms MUSE ECG QTC Interval 506 ms MUSE ECG P [place] 70 degrees MUSE ECG R [place] -38 degrees MUSE ECG T Wave [place] 2 degrees MUSE ECG Diagnosis Normal sinus rhythm MUSE ECG Diagnosis Left axis deviation MUSE ECG Diagnosis Right bundle branch block MUSE ECG Diagnosis Minimal voltage criteria for LVH, may be normal variant ( R in aVL ) MUSE ECG Diagnosis T wave abnormality, consider lateral ischemia MUSE ECG Diagnosis Abnormal ECG MUSE ECG Diagnosis MUSE ECG Diagnosis Confirmed by Garrett Robles ([id number]) on 05/09/2025 2:20:08 PM MUSE ECG 05/09/2025 12:3 4 PM EDT 05/09/2025 2:20 PM EDT Selin Lee MD ECG ORDERABLES Final Result MUSE ECG * (ABNORMAL) POCT glucose meter (05/09/2025 12:25 PM EDT) Pathologist [facility] POCT Glucose 283(H) 74 - 99 [...] 05/09/2025 12:27 PM EDT [facility] [employer]anger ID Dunia Montgomery 05/09/2025 12:27 PM EDT HEALTHCARE LAB Device ID [id number] 05/09/2025 12:27 PM EDT HEALTHCARE LAB Specimen Type POC Capillary 05/09/2025 12:27 PM EDT [facility]ALTH[facility]ARE LAB Blood Capillary blood specimen / Unknown 05/09/2025 12:25 PM EDT 05/09/2025 12:27 PM EDT Dinae Guzman MD LAB POINT OF CARE T EST DOCKED DEVICE UNSOLICITED RESULTS Final Result Performing Organization Address City/[facility] de Phone Number HEALTHCARE LAB [address] [place] [address] * (ABNORMAL) POCT glucose meter (05/09/2025 7:52 AM EDT) Pathologist [facility] POCT Glucose 306(H) 74 - 99 mg/dL [...] Comment 05/09/2025 7:54 AM EDT [facility]ALTHCARE [facility] Spinning Frame Changer ID Char Hinojosa 05/09/2025 7:54 AM EDT HEALTHCARE LAB Device ID [id number] 05/09/2025 7:54 AM EDT [facility] Specimen Type POC Capillary 05/09/2025 7:54 AM EDT [facility] Blood Capillary blood specimen / Unknown 05/09/2025 7:52 AM EDT 05/09/2025 7:54 AM EDT Diane Guzman MD LAB POINT OF CARE T EST DOCKED DEVICE UNSOLICITED RESULTS Final Result Performing Organization Address City/[facility] Co de Phone Number [facility] [address] [place] [address] * (ABNORMAL) POCT glucose meter (05/08/2025 11:54 PM EDT) Pathologist [facility] POCT Glucose 273(H) 74 - 99 [...] 05/08/2025 11:56 PM EDT [facility] Spin[employer] Changer ID Kaylin Barron 05/08/2025 11:56 PM EDT [facility] Device ID [id number] 05/08/2025 11:56 PM EDT HEALTHCARE LAB Specimen Type POC Capillary 05/08/2025 11:56 PM EDT HEALTHCARE LAB Blood Capillary blood specimen / Unknown 05/08/2025 11:54 PM EDT 05/08/2025 11:56 PM EDT Diane Guzman MD LAB POINT OF CARE T EST DOCKED DEVICE UNSOLICITED RESULTS Final Result Performing Organization Address [facility] de Phone Number HEALTHCARE LAB [address] [place] [address] * (ABNORMAL) POCT glucose meter (05/08/2025 7:33 [...] Comment 05/08/2025 7:35 PM EDT HEALTHCARE LAB Spinning Frame Changer ID Kaylin Barron 05/08/2025 7:35 PM EDT HEALTHCARE LAB Device ID [id number] 05/08/2025 7:35 PM EDT HEALTHCARE LAB Specimen Type POC Capillary 05/08/2025 7:35 PM EDT [facility]ALTH[facility]ARE LAB Blood Capillary blood specimen / Unknown 05/08/2025 7:33 PM EDT 05/08/2025 7:35 PM EDT us Diane Guzman MD LAB POINT OF CARE T EST DOCKED DEVICE UNSOLICITED RESULTS Final Result Performing Organization Address [facility] Co de Phone Number HEALTHCARE [facility] [address] [place] [address] * (ABNORMAL) POCT glucose meter (05/08/2025 5:00 PM EDT) [facility] POCT Glucose 347(H) 74 - 99 mg/dL [...] for testing. Comment 05/08/2025 5:02 PM EDT [facility] [employer] Changer ID Char Hinojosa 05/08/2025 5:02 PM EDT [employer] HEALTHCARE LAB Device ID [id number] 05/08/2025 5:02 PM EDT [facility] Specimen Type POC Capillary 05/08/2025 5:02 PM EDT HEALTHCARE LAB Blood Capillary blood specimen / Unknown 05/08/2025 5:00 PM EDT 05/08/2025 5:02 PM EDT Diane Guzman MD LAB POINT OF CARE T EST DOCKED DEVICE UNSOLICITED RESULTS Final Result [facility] [address] [place] [address] * (ABNORMAL) POCT glucose meter (05/08/2025 11:42 AM EDT) [facility] POCT Glucose 298(H) 74 - 99 mg/dL [...] for testing. Comment 05/08/2025 11:44 AM EDT [facility] [employer] Changer ID Char Hinojosa 05/08/2025 11:44 AM EDT [facility] Device ID [id number] 05/08/2025 11:44 AM EDT [facility] Specimen Type POC Capillary 05/08/2025 11:44 AM EDT [facility]ALTH[facility]ARE LAB Blood Capillary blood specimen / Unknown 05/08/2025 11:42 AM EDT 05/08/2025 11:44 AM EDT Diane Guzman MD LAB POINT OF CARE T EST DOCKED DEVICE UNSOLICITED RESULTS Final Result Performing Organization Address City/[facility]/ZIP Co de Phone Number [facility] [address] [place] [address] * (ABNORMAL) POCT glucose meter (05/08/2025 8:05 AM EDT) POCT Glucose 346(H) 74 - 99 mg/dL 05/08/2025 8:07 AM EDT [facility] Comment:Accuracy of [...] Comment 05/08/2025 8:07 AM EDT [facility]ALTH[facility]ARE LAB Spinning Frame Changer ID Char Hinojosa 05/08/2025 8:07 AM EDT HEALTHCARE LAB Device ID [id number] 05/08/2025 8:07 AM EDT HEALTHCARE LAB Specimen Type POC Capillary 05/08/2025 8:07 AM EDT [facility]ARE LAB Blood Capillary blood specimen / Unknown 05/08/2025 8:05 AM EDT 05/08/2025 8:07 AM EDT us Diane Guzman MD LAB POINT OF CARE T EST DOCKED DEVICE UNSOLICITED RESULTS Final Result Performing Organization Address City/[facility]/ZIP Co de Phone Number [facility]ARE [facility] [address] [place] [address] * (ABNORMAL) POCT glucose meter (05/08/2025 3:56 AM EDT) POCT Glucose 388(H) 74 - 99 mg/dL [...] Comment 05/08/2025 3:58 AM EDT [facility]ARE [facility] Spinning Frame Changer ID Stella Coleman 05/08/20 3:58 AM EDT HEALTHCARE LAB Device ID [id number] 05/08/2025 3:58 AM EDT HEALTH[facility]ARE LAB Specimen Type POC Capillary 05/08/2025 3:58 AM EDT [facility] LAB Blood Capillary blood specimen / Unknown 05/08/2025 3:56 AM EDT 05/08/2025 3:58 AM EDT Diane Guzman MD LAB POINT OF CARE T EST DOCKED DEVICE UNSOLICITED RESULTS Final Result Performing Organization Address City/State/[facility] Co de Phone Number HE[facility]ARE LAB [address] [place] [address] * (ABNORMAL) POCT glucose meter (05/07/2025 8:14 PM EDT) [facility] POCT Glucose 392(H) 74 - 99 mg/dL [...] Comment 05/07/2025 8:15 PM EDT [facility]ARE [facility] Spinning Frame Changer ID Fela Coelho 05/07/2025 8:15 PM EDT HEALTHCARE LAB Device ID [id number] 05/07/2025 8:15 PM EDT HEALTHCARE LAB Specimen Type POC Capillary 05/07/2025 8:15 PM EDT HEALTHCARE LAB Blood Capillary blood specimen / Unknown 05/07/2025 8:14 PM EDT 05/07/2025 8:15 PM EDT Diane Guzman MD LAB POINT OF CARE T EST DOCKED DEVICE UNSOLICITED RESULTS Final Result Performing Organization Address City/[facility] Co de Phone Number HE[facility]ARE [facility] [address] [place] [address] * (ABNORMAL) POCT glucose meter (05/07/2025 5:10 PM EDT) POCT Glucose 411(H) 74 - 99 mg/dL [...] Comment 05/07/2025 5:13 PM EDT [facility]ARE [facility] Spinning Frame Changer ID Priyanka Negrete 05/07/20 5:13 PM EDT HEALTHCARE LAB Device ID [id number] 05/07/2025 5:13 PM EDT [facility] Specimen Type POC Capillary 05/07/2025 5:13 PM EDT [facility] Blood Capillary blood specimen / Unknown 05/07/2025 5:10 PM EDT 05/07/2025 5:13 PM EDT Diane Guzman MD LAB POINT OF CARE T EST DOCKED DEVICE UNSOLICITED RESULTS Final Result Performing Organization Address City/[facility] Co de Phone Number [facility] [address] [place] [address] * (ABNORMAL) POCT glucose meter (05/07/2025 12:04 PM EDT) Pathologist [facility] POCT Glucose 350(H) 74 - 99 [...] for testing. Comment 05/07/2025 12:10 PM EDT HEALTHCARE LAB Spinning Frame Changer ID Priyanka Negrete 05/07/20 12:10 PM EDT HEALTHCARE LAB Device ID [id number] 05/07/2025 12:10 PM EDT HEALTHCARE LAB Specimen Type POC Capillary 05/07/2025 12:10 PM EDT HEALTHCARE LAB Blood Capillary blood specimen / Unknown 05/07/2025 12:04 PM EDT 05/07/2025 12:10 PM EDT Diane Guzman MD LAB POINT OF CARE T EST DOCKED DEVICE UNSOLICITED RESULTS Final Result Performing Organization Address City/[facility] Co de Phone Number HE[facility]CARE LAB [address] [place] [address] * (ABNORMAL) POCT glucose meter (05/07/2025 7:41 [...] for testing. Comment 05/07/2025 7:44 AM EDT [facility]CARE LAB Spinning Frame Changer ID Priyanka Negrete 05/07/20 7:44 AM EDT HEALTHCARE LAB Device ID [id number] 05/07/2025 7:44 AM EDT HEALTHCARE LAB Specimen Type POC Capillary 05/07/2025 7:44 AM EDT HEALTHCARE LAB Blood Capillary blood specimen / Unknown 05/07/2025 7:41 AM EDT 05/07/2025 7:44 AM EDT Diane Guzman MD LAB POINT OF CARE T EST DOCKED DEVICE UNSOLICITED RESULTS Final Result Performing Organization Address City/[facility]/ZIP Co de Phone Number HE[facility]CARE LAB [address] [place] [address] * (ABNORMAL) POCT glucose meter (05/07/2025 3:41 AM EDT) Pathologist [facility] POCT Glucose 407(H) 74 - 99 mg/dL [...] Comment 05/07/2025 3:43 AM EDT HEALTHCARE LAB Spinning Frame Changer ID Yessenia Won 05/07/2025 3:43 AM EDT [facility] Device ID [id number] 05/07/2025 3:43 AM EDT HEALTHCARE LAB Specimen Type POC Capillary 05/07/2025 3:43 AM EDT [facility] Blood Capillary blood specimen / Unknown 05/07/2025 3:41 AM EDT 05/07/2025 3:43 AM EDT Diane Guzman MD LAB POINT OF CARE T EST DOCKED DEVICE UNSOLICITED RESULTS Final Result Performing Organization Address City/State/[facility] Co de Phone Number [facility] [address] [place] [address] * (ABNORMAL) POCT glucose meter (05/06/2025 8:01 PM EDT) [facility] POCT Glucose 324(H) 74 - 99 mg/dL [...] for testing. Comment 05/06/2025 8:02 PM EDT [facility] Spinning Frame Changer ID Yessenia Won 05/06/2025 8:02 PM EDT [employer] HEALTHCARE LAB Device ID [id number] 05/06/2025 8:02 PM EDT HEALTHCARE LAB Specimen Type POC Capillary 05/06/2025 8:02 PM EDT [facility] Blood Capillary blood specimen / Unknown 05/06/2025 8:01 PM EDT 05/06/2025 8:02 PM EDT Diane Guzman MD LAB POINT OF CARE T EST DOCKED DEVICE UNSOLICITED RESULTS Final Result Performing Organization Address City/[facility]/ZIP Co de Phone Number [facility] [address] [place] [address] * (ABNORMAL) POCT glucose meter (05/06/2025 4:40 PM EDT) Pathologist [facility] POCT Glucose 212(H) 74 - 99 [...] Comment 05/06/2025 4:46 PM EDT HEALTHCARE LAB Spinning Frame Changer ID Sherrell Navarro 05/06/2025 4:46 PM EDT HEALTHCARE LAB Device ID [id number] 05/06/2025 4:46 PM EDT [facility] Specimen Type POC Capillary 05/06/2025 4:46 PM EDT [facility] Blood Capillary blood specimen / Unknown 05/06/2025 4:40 PM EDT 05/06/2025 4:46 PM EDT Diane Guzman MD LAB POINT OF CARE T EST DOCKED DEVICE UNSOLICITED RESULTS Final Result Performing Organization Address City/[facility]/ZIP Co de Phone Number [facility] [address] [place] [address] * PSA, diagnostic (05/06/2025 12:27 PM EDT) PSA, Diagnostic, Serum 0.03 0.00 - 2.50 ng/mL 05/06/2025 1:[address] [facility] Blood Venous blood specimen / Unknown Venipuncture / Unknown 05/06/2025 12:27 PM EDT 05/06/2025 12:[address] [facility] - 05/06/2025 1:10 PM EDT Performed by [employer] electrochemiluminescent immunoassay which is standardized against the PSA [place] Reference Standard (WHO 96/670). Results obtained with different test methods or kits cannot be used interchangeably. Diane Guzman MD LAB BLOOD ORDERABLES Final Result [facility] [address] [place] [address] * (ABNORMAL) POCT glucose meter (05/06/2025 11:28 AM EDT) [facility] POCT Glucose 337(H) 74 - 99 mg/dL [...] Comment 05/06/2025 11:30 AM EDT HEALTHCARE LAB Spinning Frame Changer ID Sherrell Navarro 05/06/2025 11:30 AM EDT HEALTHCARE LAB Device ID [id number] 05/06/2025 11:30 AM EDT HEALTHCARE LAB Specimen Type POC Capillary 05/06/2025 11:30 AM EDT [facility] Blood Capillary blood specimen / Unknown 05/06/2025 11:28 AM EDT 05/06/2025 11:30 AM EDT Diane Guzman MD LAB POINT OF CARE T EST DOCKED DEVICE UNSOLICITED RESULTS Final Result Performing Organization Address City/[facility]/ZIP Co de Phone Number [facility] [address] [place] [address] * (ABNORMAL) POCT glucose meter (05/06/2025 8:13 AM EDT) [facility] POCT Glucose 348(H) 74 - 99 mg/dL [...] Comment 05/06/2025 8:23 AM EDT HEALTHCARE LAB Spinning Frame Changer ID Sherrell Navarro 05/06/2025 8:23 AM EDT HEALTHCARE LAB Device ID [id number] 05/06/2025 8:23 AM EDT HEALTHCARE LAB Specimen Type POC Capillary 05/06/2025 8:23 AM EDT HEALTHCARE LAB Blood Capillary blood specimen / Unknown 05/06/2025 8:13 AM EDT 05/06/2025 8:23 AM EDT Diane Guzman MD LAB POINT OF CARE T EST DOCKED DEVICE UNSOLICITED RESULTS Final Result [facility] [address] [place] [address] * (ABNORMAL) POCT glucose meter (05/06/2025 3:09 AM EDT) [facility] POCT Glucose 364(H) 74 - 99 mg/dL 05/06/2025 3:11 AM EDT HEALTHCARE LAB Comment:Accuracy of a [...] Comment 05/06/2025 3:11 AM EDT HEALTH[facility]ARE LAB Spinning Frame Changer ID Won Casas 05/06/2025 3:11 AM EDT HEALTHCARE LAB Device ID [id number] 05/06/2025 3:11 AM EDT HEALTHCARE LAB Specimen Type POC Capillary 05/06/2025 3:11 AM EDT HEALTH[facility]ARE LAB Blood Capillary blood specimen / Unknown 05/06/2025 3:09 AM EDT 05/06/2025 3:11 AM EDT Diane Guzman MD LAB POINT OF CARE T EST DOCKED DEVICE UNSOLICITED RESULTS Final Result Performing Organization Address [facility] Co de Phone Number HEALTHCARE LAB [address] [place] [address] * (ABNORMAL) POCT glucose meter (05/05/2025 8:19 PM EDT) [facility] POCT Glucose 324(H) 74 - 99 mg/dL [...] Comment 05/05/2025 8:20 PM EDT HEALTHCARE LAB Spinning Frame Changer ID Won Casas 05/05/2025 8:20 PM EDT HEALTHCARE LAB Device ID [id number] 05/05/2025 8:20 PM EDT HEALTHCARE LAB Specimen Type POC Capillary 05/05/2025 8:20 PM EDT HEALTHCARE LAB Blood Capillary blood specimen / Unknown 05/05/2025 8:19 PM EDT 05/05/2025 8:20 PM EDT Diane Guzman MD LAB POINT OF CARE T EST DOCKED DEVICE UNSOLICITED RESULTS Final Result Performing Organization Address City/[facility]/ZIP Co de Phone Number [facility] [address] [place] [address] * (ABNORMAL) POCT glucose meter (05/05/2025 5:09 PM EDT) [facility] POCT Glucose 371(H) 74 - 99 mg/dL [...] Comment 05/05/2025 5:14 PM EDT HEALTHCARE LAB Spinning Frame Changer ID Sherrell Navarro 05/05/2025 5:14 PM EDT HEALTHCARE LAB Device ID [id number] 05/05/2025 5:14 PM EDT HEALTHCARE LAB Specimen Type POC Capillary 05/05/2025 5:14 PM EDT HEALTHCARE LAB Blood Capillary blood specimen / Unknown 05/05/2025 5:09 PM EDT 05/05/2025 5:14 PM EDT us Diane Guzman MD LAB POINT OF CARE T EST DOCKED DEVICE UNSOLICITED RESULTS Final Result [facility] [address] [place] [address] * (ABNORMAL) POCT glucose meter (05/05/2025 11:29 AM EDT) Pathologist [facility] POCT Glucose 292(H) 74 - 99 [...] Comment 05/05/2025 11:32 AM EDT HEALTHCARE LAB Spinning Frame Changer ID Sherrell Navarro 05/05/2025 11:32 AM EDT HEALTHCARE LAB Device ID [id number] 05/05/2025 11:32 AM EDT HEALTHCARE LAB Specimen Type POC Capillary 05/05/2025 11:32 AM EDT HEALTH[facility]ARE LAB Blood Capillary blood specimen / Unknown 05/05/2025 11:29 AM EDT 05/05/2025 11:32 AM EDT us Diane Guzman MD LAB POINT OF CARE T EST DOCKED DEVICE UNSOLICITED RESULTS Final Result Performing Organization Address [facility] Co de Phone Number [facility] [address] [place] [address] * (ABNORMAL) POCT glucose meter (05/05/2025 7:55 AM EDT) [facility] POCT Glucose 290(H) 74 - 99 mg/dL [...] Comment 05/05/2025 7:57 AM EDT HEALTHCARE LAB Spinning Frame Changer ID RamonHosseinalexandra Black 05/05/2025 7:57 AM EDT HEALTHCARE LAB Device ID [id number] 05/05/2025 7:57 AM EDT HEALTHCARE LAB Specimen Type POC Capillary 05/05/2025 7:57 AM EDT HEALTHCARE LAB Blood Capillary blood specimen / Unknown 05/05/2025 7:55 AM EDT 05/05/2025 7:57 AM EDT Diane Guzman MD LAB POINT OF CARE T EST DOCKED DEVICE UNSOLICITED RESULTS Final Result Performing Organization Address [facility] de Phone Number [facility] [address] [place] [address] * (ABNORMAL) POCT glucose meter (05/04/2025 7:35 PM EDT) [facility] POCT Glucose 236(H) 74 - 99 mg/dL [...] 05/04/2025 7:37 PM EDT [facility] Spinning Frame Changer ID Kaylin Barron 05/04/2025 7:37 PM EDT HEALTHCARE LAB Device ID [id number] 05/04/2025 7:37 PM EDT HEALTHCARE LAB Specimen Type POC Capillary 05/04/2025 7:37 PM EDT HEALTH[facility]ARE LAB Blood Capillary blood specimen / Unknown 05/04/2025 7:35 PM EDT 05/04/2025 7:37 PM EDT Diane Guzman MD LAB POINT OF CARE T EST DOCKED DEVICE UNSOLICITED RESULTS Final Result Performing Organization Address City/[facility] Co de Phone Number HEALTHCARE LAB [address] [place] [address] * (ABNORMAL) POCT glucose meter (05/04/2025 4:51 PM EDT) [facility] POCT Glucose 233(H) 74 - 99 mg/dL [...] Comment 05/04/2025 4:53 PM EDT [facility]ALTHCARE [facility] Spinning Frame Changer ID Araceli Doran 025 4:53 PM EDT HEALTHCARE LAB Device ID [id number] 05/04/2025 4:53 PM EDT HEALTHCARE LAB Specimen Type POC Capillary 05/04/2025 4:53 PM EDT HEALTH[facility]ARE LAB Blood Capillary blood specimen / Unknown 05/04/2025 4:51 PM EDT 05/04/2025 4:53 PM EDT Diane Guzman MD LAB POINT OF CARE T EST DOCKED DEVICE UNSOLICITED RESULTS Final Result Performing Organization Address City/[facility]/ZIP Co de Phone Number HEALTHCARE [facility] [address] [place] [address] * (ABNORMAL) POCT glucose meter (05/04/2025 11:51 AM EDT) [facility] POCT Glucose 271(H) 74 - 99 mg/dL 05/04/2025 11:56 AM EDT HEALTHCARE LAB Comment:Accuracy of a [...] Comment 05/04/2025 11:56 AM EDT [facility]ALTH[facility]ARE LAB Spinning Frame Changer ID Araceli Doran 025 11:56 AM EDT HEALTHCARE LAB Device ID [id number] 05/04/2025 11:56 AM EDT HEALTHCARE LAB Specimen Type POC Capillary 05/04/2025 11:56 AM EDT [facility] Blood Capillary blood specimen / Unknown 05/04/2025 11:51 AM EDT 05/04/2025 11:56 AM EDT Diane Guzman MD LAB POINT OF CARE T EST DOCKED DEVICE UNSOLICITED RESULTS Final Result Performing Organization Address City/State/[facility] Co de Phone Number HEALTHCARE LAB [address] [place] [address] * (ABNORMAL) POCT glucose meter (05/04/2025 8:09 AM EDT) [facility] POCT Glucose 259(H) 74 - 99 mg/dL 05/04/2025 8:17 AM EDT HEALTHCARE LAB Comment:Accuracy of a [...] Comment 05/04/2025 8:17 AM EDT [facility]ALTH[facility]ARE LAB Spinning Frame Changer ID Araceli Doran 025 8:17 AM EDT HEALTHCARE LAB Device ID [id number] 05/04/2025 8:17 AM EDT HEALTHCARE LAB Specimen Type POC Capillary 05/04/2025 8:17 AM EDT [facility] Blood Capillary blood specimen / Unknown 05/04/2025 8:09 AM EDT 05/04/2025 8:17 AM EDT Diane Guzman MD LAB POINT OF CARE T EST DOCKED DEVICE UNSOLICITED RESULTS Final Result Performing Organization Address [facility] de Phone Number HEALTHCARE LAB [address] [place] [address] * (ABNORMAL) POCT glucose meter (05/04/2025 4:44 AM EDT) [facility] POCT Glucose 335(H) 74 - 99 mg/dL [...] Comment 05/04/2025 4:46 AM EDT HEALTHCARE LAB Spinning Frame Changer ID Kaylin Barron 05/04/2025 4:46 AM EDT HEALTHCARE LAB Device ID [id number] 05/04/2025 4:46 AM EDT [facility] Specimen Type POC Capillary 05/04/2025 4:46 AM EDT [facility] Blood Capillary blood specimen / Unknown 05/04/2025 4:44 AM EDT 05/04/2025 4:46 AM EDT Diane Guzman MD LAB POINT OF CARE T EST DOCKED DEVICE UNSOLICITED RESULTS Final Result Performing Organization Address City/[facility] Co de Phone Number [facility] [address] [place] [address] * (ABNORMAL) POCT glucose meter (05/03/2025 7:27 PM EDT) Pathologist [facility] POCT Glucose 331(H) 74 - 99 [...] for testing. Comment 05/03/2025 7:33 PM EDT HEALTHCARE LAB Spinning Frame Changer ID Kaylin Barron 05/03/2025 7:33 PM EDT HEALTHCARE LAB Device ID [id number] 05/03/2025 7:33 PM EDT HEALTHCARE LAB Specimen Type POC Capillary 05/03/2025 7:33 PM EDT [facility]ALTH[facility]ARE LAB Blood Capillary blood specimen / Unknown 05/03/2025 7:27 PM EDT 05/03/2025 7:33 PM EDT us Diane Guzman MD LAB POINT OF CARE T EST DOCKED DEVICE UNSOLICITED RESULTS Final Result [facility] [address] [place] [address] * (ABNORMAL) Comprehensive metabolic panel (05/03/2025 6:22 PM EDT) Glucose, Plasma 290(H) 74 - 99 mg/dL 05/03/2025 7:[address] [facility] BUN, Plasma 14 7 - 21 mg/dL 05/03/2025 7:[address] [facility] Creatinine, Plasma 0.71 0.70 - 1.20 mg/dL 05/03/2025 7:[address] [facility] BUN/Creatinine Ratio 20 05/03/2025 7:[address] [facility] Sodium, Plasma 133(L) 136 - 145 mmol/L 05/03/2025 7:[address] [facility] Potassium, Plasma 3.6 3.6 - 4.9 mmol/L 05/03/2025 7:[address] [facility] Chloride, Plasma 87(L) 97 - 107 mmol/L 05/03/2025 7:[address] [facility] CO2, Plasma 37(H) 22 - 29 mmol/L 05/03/2025 7:[address] [facility] Anion Gap 9 6 - 16 mmol/L 05/03/2025 7:[address] [facility] Total Calcium, Plasma 9.4 8.9 - 10.2 mg/dL 05/03/2025 7:[address] [facility] Total Protein 8.0(H) 6.3 - 7.9 g/dL 05/03/2025 7:[address] [facility] Albumin, Plasma 3.6 3.5 - 5.2 g/dL 05/03/2025 7:[address] [facility] AST, Plasma 18 10 - 50 U/L 05/03/2025 7:[address] [facility] ALT, Plasma 12 10 - 50 U/L 05/03/2025 7:[address] [facility] Alkaline Phosphatase, Plasma 64 40 - 115 U/L 05/03/2025 7:[address] [facility] Total Bilirubin, Plasma 0.7 0.2 - 1.1 mg/dL 05/03/2025 7:[address] [facility] eGFRcr 113.9 mL/min/1.7 3m*2 05/03/2025 7:[address] [facility] Comment:Reported eGFRcr in m L/min/1.73m2 is based the CKD-EPI 2020 equation that does not use a race coefficient. Blood Venous blood specimen / Unknown Venipuncture / Unknown 05/03/2025 6:22 PM EDT 05/03/2025 6:38 PM EDT Diane Guzman MD LAB BLOOD ORDERABLES Final Result [facility] [address] [place] [address] * Creatine Kinase (CK), Total (05/03/2025 6:22 PM EDT) Creatine Kinase, Plasma 54 49 - 320 U/L 05/03/2025 7:[address] [facility] Blood Venous blood specimen / Unknown Venipuncture / Unknown 05/03/2025 6:22 PM EDT 05/03/2025 6:38 PM EDT us Diane Guzman MD LAB BLOOD ORDERABLES Final Result Performing Organization Address City/[facility]/ZIP Co de Phone Number [facility] [address] [place] [address] * (ABNORMAL) POCT glucose meter (05/03/2025 5:30 PM EDT) POCT Glucose 258(H) 74 - [...] Comment 05/03/2025 5:33 PM EDT [facility] Spinning Frame Changer ID Dunia Montgomery 05/03/2025 5:33 PM EDT [facility]ARE [facility] Device ID [id number] 05/03/2025 5:33 PM EDT [facility] Specimen Type POC Capillary 05/03/2025 5:33 PM EDT [facility] Blood Capillary blood specimen / Unknown 05/03/2025 5:30 PM EDT 05/03/2025 5:33 PM EDT Diane Guzman MD LAB POINT OF CARE T EST DOCKED DEVICE UNSOLICITED RESULTS Final Result Performing Organization Address City/[facility] Co de Phone Number [facility]ARE [facility] [address] [place] [address] * (ABNORMAL) POCT glucose meter (05/03/2025 11:36 AM EDT) POCT Glucose 310(H) 74 - 99 [...] Comment 05/03/2025 11:38 AM EDT [facility] Spinning Frame Changer ID Kindra Cardoza 05/03/2025 11:38 AM EDT [facility] LAB Device ID [id number] 05/03/2025 11:38 AM EDT [facility] Specimen Type POC Capillary 05/03/2025 11:38 AM EDT [facility] Blood Capillary blood specimen / Unknown 05/03/2025 11:36 AM EDT 05/03/2025 11:38 AM EDT Diane Guzman MD LAB POINT OF CARE T EST DOCKED DEVICE UNSOLICITED RESULTS Final Result Performing Organization Address City/[facility] Co de Phone Number [facility] [address] [place] [address] * (ABNORMAL) POCT glucose meter (05/03/2025 8:09 AM EDT) POCT Glucose 339(H) 74 - 99 mg/dL [...] Comment 05/03/2025 8:11 AM EDT [facility] Spinning Frame Changer ID Dunia Montgomery 05/03/2025 8:11 AM EDT [facility] Device ID [id number] 05/03/2025 8:11 AM EDT [facility] Specimen Type POC Capillary 05/03/2025 8:11 AM EDT [facility] Blood Capillary blood specimen / Unknown 05/03/2025 8:09 AM EDT 05/03/2025 8:11 AM EDT Diane Guzman MD LAB POINT OF CARE T EST DOCKED DEVICE UNSOLICITED RESULTS Final Result Performing Organization Address City/[facility]/ZIP Co de Phone Number [facility] [address] [place] [address] * (ABNORMAL) POCT glucose meter (05/03/2025 3:37 AM EDT) Pathologist [facility] POCT Glucose 372(H) 74 - 99 [...] Comment 05/03/2025 3:40 AM EDT [facility] Spinning Frame Changer ID Maribell Saeed 3:40 AM EDT [facility] Device ID [id number] 05/03/2025 3:40 AM EDT [facility] Specimen Type POC Capillary 05/03/2025 3:40 AM EDT [facility] Blood Capillary blood specimen / Unknown 05/03/2025 3:37 AM EDT 05/03/2025 3:40 AM EDT us Diane Guzman MD LAB POINT OF CARE T EST DOCKED DEVICE UNSOLICITED RESULTS Final Result Performing Organization Address City/State/[facility] Co de Phone Number [facility]ARE [facility] [address] [place] [phone] * (ABNORMAL) CBC and Differential (05/03/2025 3:16 AM EDT) [facility] WBC Count 6.86 3.70 - 10.30 10*3/uL LAB HEMATOLOGY METHOD 05/03/2025 3:[address] [facility] RBC Count 3.82(L) 4.60 - 6.10 10*6/uL LAB HEMATOLOGY METHOD 05/03/2025 3:[address] [facility] HGB 8.9(L) 13.7 - 17.5 g/dL LAB HEMATOLOGY METHOD 05/03/2025 3:[address] [facility] HCT 29.2(L) 40.0 - 51.0 % LAB HEMATOLOGY METHOD 05/03/2025 3:[address] [facility] Platelet Count 202 155 - 369 10*3/uL LAB HEMATOLOGY METHOD 05/03/2025 3:[address] [facility] MCV 76(L) 79 - 98 fL LAB HEMATOLOGY METHOD 05/03/2025 3:[address] [facility] MCH 23.3(L) 26.0 - 32.0 pg LAB HEMATOLOGY METHOD 05/03/2025 3:[address] [facility] MCHC 30.5(L) 30.7 - 35.5 g/dL LAB HEMATOLOGY METHOD 05/03/2025 3:[address] [facility] RDW 18.8(H) 11.5 - 14.5 % LAB HEMATOLOGY METHOD 05/03/2025 3:[address] [facility] MPV 9.1 8.8 - 12.5 fL LAB HEMATOLOGY METHOD 05/03/2025 3:[address] [facility] nRBC 0.0 <=0.0 per 100 WBCs LAB HEMATOLOGY METHOD 05/03/2025 3:[address] [facility] Differential Type Automated LAB HEMATOLOGY METHOD 05/03/2025 3:[address] [facility] Neutrophils % 70 % LAB HEMATOLOGY METHOD 05/03/2025 3:[address] [facility] Lymphocytes % 15 % LAB HEMATOLOGY METHOD 05/03/2025 3:[address] [facility] Monocytes % 9 % LAB HEMATOLOGY METHOD 05/03/2025 3:[address] [facility] Eosinophils % 5 % LAB HEMATOLOGY METHOD 05/03/2025 3:[address] [facility] Basophils % 0 % LAB HEMATOLOGY METHOD 05/03/2025 3:[address] [facility] Immature Granulocytes % 1 % LAB HEMATOLOGY METHOD 05/03/2025 3:[address] [facility] Neutrophils Absolute 4.85 1.60 - 6.10 10*3/uL LAB HEMATOLOGY METHOD 05/03/2025 3:[address] [facility] Lymphocytes Absolute 1.03(L) 1.20 - 3.90 10*3/uL LAB HEMATOLOGY METHOD 05/03/2025 3:[address] [facility] Monocytes Absolute 0.59 0.30 - 0.90 10*3/uL LAB HEMATOLOGY METHOD 05/03/2025 3:[address] [facility] Eosinophils Absolute 0.32 0.00 - 0.50 10*3/uL LAB HEMATOLOGY METHOD 05/03/2025 3:[address] [facility] Basophils Absolute 0.03 0.00 - 0.10 10*3/uL LAB HEMATOLOGY METHOD 05/03/2025 3:[address] [facility] Immature Granulocytes Absolute 0.04 0.00 - 0.06 10*3/uL LAB HEMATOLOGY METHOD 05/03/2025 3:[address] [facility] Blood Venous blood specimen / Unknown Venipuncture / Unknown 05/03/2025 3:16 AM EDT 05/03/2025 3:[address] [facility] - 05/03/2025 3:33 AM EDT Therapeutic decision making should be based on absolute values, rather than percentages. us Marjorie Myers MD LAB BLOOD ORDERABLES Final Resul t [facility] [address] [place] [address] * (ABNORMAL) Basic Metabolic Panel, Plasma (05/03/2025 3:16 AM EDT) Glucose, Plasma 399(H) 74 - 99 mg/dL 05/03/2025 4:[address] [facility] BUN, Plasma 15 7 - 21 mg/dL 05/03/2025 4:[address] [facility] Creatinine, Plasma 0.78 0.70 - 1.20 mg/dL 05/03/2025 4:[address] [facility] BUN/Creatinine Ratio 19 05/03/2025 4:[address] [facility] Sodium, Plasma 136 136 - 145 mmol/L 05/03/2025 4:[address] [facility] Potassium, Plasma 3.6 3.6 - 4.9 mmol/L 05/03/2025 4:[address] [facility] Chloride, Plasma 90(L) 97 - 107 mmol/L 05/03/2025 4:[address] [facility] CO2, Plasma 37(H) 22 - 29 mmol/L 05/03/2025 4:[address] [facility] Anion Gap 9 6 - 16 mmol/L 05/03/2025 4:[address] [facility] Total Calcium, Plasma 9.0 8.9 - 10.2 mg/dL 05/03/2025 4:[address] [facility] eGFRcr 110.7 mL/min/1.7 3m*2 05/03/2025 4:[address] [facility] Comment:Reported eGFRcr in m L/min/1.73m2 is based the CKD-EPI 2020 equation that does not use a race coefficient. Blood Venous blood specimen / Unknown Venipuncture / Unknown 05/03/2025 3:16 AM EDT 05/03/2025 3:24 AM EDT us Marjorie Myers MD LAB BLOOD ORDERABLES Final Resul t Performing Organization Address City/[facility]/ZIP Co de Phone Number [facility] [address] [place] [address] * (ABNORMAL) Magnesium, Plasma (05/03/2025 3:16 AM EDT) Magnesium, Plasma 1.7(L) 1.9 - 2.4 mg/dL 05/03/2025 4:[address] [facility] Blood Venous blood specimen / Unknown Venipuncture / Unknown 05/03/2025 3:16 AM EDT 05/03/2025 3:24 AM EDT us Marjorie Myers MD LAB BLOOD ORDERABLES Final Resul t [facility] [address] [place] [address] * Phosphorus, Plasma (05/03/2025 3:16 AM EDT) Phosphorus, Plasma 3.6 2.5 - 4.5 mg/dL 05/03/2025 4:[address] [facility] Blood Venous blood specimen / Unknown Venipuncture / Unknown 05/03/2025 3:16 AM EDT 05/03/2025 3:24 AM EDT Marjorie Myers MD LAB BLOOD ORDERABLES Final Resul t Performing Organization Address [facility] Co de Phone Number [facility] [address] [place] [address] * Hepatitis B Core Total Antibody IgG,IgM (05/03/2025 3:16 AM EDT) Hepatitis B Core Total Antibody IgG,IgM Negative Negative 05/03/2025 4:28 AM EDT [facility] Blood Venous blood specimen / Unknown Venipuncture / Unknown 05/03/2025 3:16 AM EDT 05/03/2025 3:24 AM EDT Diane Guzman MD LAB BLOOD ORDERABLES Final Result Performing Organization Address [facility] de Phone Number [facility] [address] [place] [address] * Hepatitis B Surface Antigen (05/03/2025 3:16 AM EDT) Hepatitis B Surf Antigen Negative Negative 05/03/2025 4:28 AM EDT [facility] Blood Venous blood specimen / Unknown Venipuncture / Unknown 05/03/2025 3:16 AM EDT 05/03/2025 3:24 AM EDT us Diane Guzman MD LAB BLOOD ORDERABLES Final Result Performing Organization Address [facility] Co de Phone Number [facility] [address] [place] [address] * Hepatitis B Surface Antibody, Quantitative (05/03/2025 3:16 AM EDT) Hepatitis B Surface Antibody, Quantitative <8.00 NonReactiv e: <8, Grayzone: 8 - <12, Reactive: >= 12 mIU/mL 05/03/2025 4:[address] [facility] Comment: Nonreactive. Individual is considered not immune to HBV infection. Blood Venous blood specimen / Unknown Venipuncture / Unknown 05/03/2025 3:16 AM EDT 05/03/2025 3:24 AM EDT Result Shannon Guzman MD LAB BLOOD ORDERABLES Final Result Performing Organization Address City/[facility]/ZIP Co de Phone Number [facility] [address] [place] [address] * Hepatitis A Antibody IgG (05/03/2025 3:16 AM EDT) [facility] Hepatitis A Antibody IgG Negative Negative 05/03/2025 4:[address] [facility] Blood Venous blood specimen / Unknown Venipuncture / Unknown 05/03/2025 3:16 AM EDT 05/03/2025 3:24 AM EDT Result Shannon Guzman MD LAB BLOOD ORDERABLES Final Result Performing Organization Address [facility] [place] [address] * (ABNORMAL) POCT glucose meter (05/02/2025 8:48 PM EDT) [facility] POCT Glucose 325(H) 74 - 99 mg/dL [...] 05/02/2025 8:50 PM EDT [facility] Spinning Frame Changer ID Maribell Saeed 8:50 PM EDT [facility] Device ID [id number] 05/02/2025 8:50 PM EDT [facility] Specimen Type POC Capillary 05/02/2025 8:50 PM EDT [facility] Blood Capillary blood specimen / Unknown 05/02/2025 8:48 PM EDT 05/02/2025 8:50 PM EDT Result Shannon Guzman MD LAB POINT OF CARE T EST DOCKED DEVICE UNSOLICITED RESULTS Final Result Performing Organization Address City/[facility] Co de Phone Number [facility] [address] [place] [address] * (ABNORMAL) POCT glucose meter (05/02/2025 4:30 PM EDT) [facility] POCT Glucose 250(H) 74 - 99 mg/dL [...] Comment 05/02/2025 4:32 PM EDT [facility] Spinning Frame Changer ID Sebastián Kenny 4:32 PM EDT [facility] Device ID [id number] 05/02/2025 4:32 PM EDT [facility] Specimen Type POC Capillary 05/02/2025 4:32 PM EDT [facility] Blood Capillary blood specimen / Unknown 05/02/2025 4:30 PM EDT 05/02/2025 4:32 PM EDT Diane Guzman MD LAB POINT OF CARE T EST DOCKED DEVICE UNSOLICITED RESULTS Final Result Performing Organization Address City/[facility] Co de Phone Number [facility] [address] [place] [address] * Nasopharyngeal Respiratory Panel (05/02/2025 1:05 PM EDT) [facility] Nasopharyngeal Respiratory PCR Interpretation Not Detected for all analytes Not Detected for all analytes 05/02/2025 3:[address] [facility] Swab Nasopharyngeal structure / Unknown Non-blood Collection / Unknown 05/02/2025 1:05 PM EDT 05/02/2025 1:[address] [facility] - 05/02/2025 3:14 PM EDT [...] Respiratory PCR Panel is performed using the Talentalex instrument. This test is FDA approved for use with Nasopharyngeal swabs only. This test is used for clinical purposes. It should not be regarded as investigational or for research. The [facility] Clinical Microbiology Laboratory is certified under the Clinical Laboratory Improvement Amendments of 1988 (CLIA-88) as qualified to perform high complexity clinical laboratory testing. Diane Guzman MD LAB MICROBIOLOGY - GENERAL ORDERABLES Final Result [facility] [address] [place] [address] * (ABNORMAL) POCT glucose meter (05/02/2025 12:08 PM EDT) POCT Glucose 278(H) 74 - 99 mg/dL [...] Comment 05/02/2025 12:10 PM EDT [facility] Spinning Frame Changer ID EfraínSebastián 12:10 PM EDT [facility] Device ID [id number] 05/02/2025 12:10 PM EDT [facility] Specimen Type POC Capillary 05/02/2025 12:10 PM EDT [facility] Blood Capillary blood specimen / Unknown 05/02/2025 12:08 PM EDT 05/02/2025 12:10 PM EDT Diane Guzman MD LAB POINT OF CARE T EST DOCKED DEVICE UNSOLICITED RESULTS Final Result Performing Organization Address City/[facility] Co de Phone Number [facility] [address] [place] [address] * (ABNORMAL) POCT glucose meter (05/02/2025 8:11 AM EDT) POCT Glucose 283(H) 74 - 99 [...] for testing. Comment 05/02/2025 8:12 AM EDT [facility] Spinning Frame Changer ID Sebastián Kenny 8:12 AM EDT [facility] Device ID [id number] 05/02/2025 8:12 AM EDT [facility] Specimen Type POC Capillary 05/02/2025 8:12 AM EDT [facility] Blood Capillary blood specimen / Unknown 05/02/2025 8:11 AM EDT 05/02/2025 8:12 AM EDT Diane Guzman MD LAB POINT OF CARE T EST DOCKED DEVICE UNSOLICITED RESULTS Final Result Performing Organization Address City/[facility] Co de Phone Number [facility] [address] [place] [address] * (ABNORMAL) POCT glucose meter (05/02/2025 4:01 AM EDT) POCT Glucose 320(H) 74 - 99 mg/dL 05/02/2025 4:03 AM EDT [facility] Comment:Accuracy of [...] Comment 05/02/2025 4:03 AM EDT [facility] Spinning Frame Changer ID Stella Coleman 05/02/20 4:03 AM EDT [facility] Device ID [id number] 05/02/2025 4:03 AM EDT [facility] Specimen Type POC Capillary 05/02/2025 4:03 AM EDT [facility] Blood Capillary blood specimen / Unknown 05/02/2025 4:01 AM EDT 05/02/2025 4:03 AM EDT us Marjorie Myers MD LAB POINT OF CARE TE ST DOCKED DEVICE UNSOLICITED RESULTS Final Result Performing Organization Address City/State/[facility] Co de Phone Number [facility] [address] [place] [phone] * (ABNORMAL) CBC and Differential (05/02/2025 3:10 AM EDT) WBC Count 7.39 3.70 - 10.30 10*3/uL LAB HEMATOLOGY METHOD 05/02/2025 3:[address] [facility] RBC Count 3.88(L) 4.60 - 6.10 10*6/uL LAB HEMATOLOGY METHOD 05/02/2025 3:[address] [facility] HGB 8.8(L) 13.7 - 17.5 g/dL LAB HEMATOLOGY METHOD 05/02/2025 3:[address] [facility] HCT 29.3(L) 40.0 - 51.0 % LAB HEMATOLOGY METHOD 05/02/2025 3:[address] [facility] Platelet Count 205 155 - 369 10*3/uL LAB HEMATOLOGY METHOD 05/02/2025 3:[address] [facility] MCV 76(L) 79 - 98 fL LAB HEMATOLOGY METHOD 05/02/2025 3:[address] [facility] MCH 22.7(L) 26.0 - 32.0 pg LAB HEMATOLOGY METHOD 05/02/2025 3:[address] [facility] MCHC 30.0(L) 30.7 - 35.5 g/dL LAB HEMATOLOGY METHOD 05/02/2025 3:[address] [facility] RDW 19.1(H) 11.5 - 14.5 % LAB HEMATOLOGY METHOD 05/02/2025 3:[address] [facility] MPV 8.5(L) 8.8 - 12.5 fL LAB HEMATOLOGY METHOD 05/02/2025 3:[address] [facility] nRBC 0.0 <=0.0 per 100 WBCs LAB HEMATOLOGY METHOD 05/02/2025 3:[address] [facility] Differential Type Automated LAB HEMATOLOGY METHOD 05/02/2025 3:[address] [facility] Neutrophils % 74 % LAB HEMATOLOGY METHOD 05/02/2025 3:[address] [facility] Lymphocytes % 13 % LAB HEMATOLOGY METHOD 05/02/2025 3:[address] [facility] Monocytes % 8 % LAB HEMATOLOGY METHOD 05/02/2025 3:[address] [facility] Eosinophils % 4 % LAB HEMATOLOGY METHOD 05/02/2025 3:[address] [facility] Basophils % 0 % LAB HEMATOLOGY METHOD 05/02/2025 3:[address] [facility] Immature Granulocytes % 1 % LAB HEMATOLOGY METHOD 05/02/2025 3:[address] [facility] Neutrophils Absolute 5.45 1.60 - 6.10 10*3/uL LAB HEMATOLOGY METHOD 05/02/2025 3:[address] [facility] Lymphocytes Absolute 0.96(L) 1.20 - 3.90 10*3/uL LAB HEMATOLOGY METHOD 05/02/2025 3:[address] [facility] Monocytes Absolute 0.62 0.30 - 0.90 10*3/uL LAB HEMATOLOGY METHOD 05/02/2025 3:[address] [facility] Eosinophils Absolute 0.30 0.00 - 0.50 10*3/uL LAB HEMATOLOGY METHOD 05/02/2025 3:[address] [facility] Basophils Absolute 0.01 0.00 - 0.10 10*3/uL LAB HEMATOLOGY METHOD 05/02/2025 3:[address] [facility] Immature Granulocytes Absolute 0.05 0.00 - 0.06 10*3/uL LAB HEMATOLOGY METHOD 05/02/2025 3:[address] [facility] Blood Venous blood specimen / Unknown Venipuncture / Unknown 05/02/2025 3:10 AM EDT 05/02/2025 3:[address] [facility] - 05/02/2025 3:23 AM EDT Therapeutic decision making should be based on absolute values, rather than percentages. us Marjorie Myers MD LAB BLOOD ORDERABLES Final Resul t [facility] [address] [place] [address] * (ABNORMAL) Basic Metabolic Panel, Plasma (05/02/2025 3:10 AM EDT) Glucose, Plasma 358(H) 74 - 99 mg/dL 05/02/2025 3:[address] [facility] BUN, Plasma 12 7 - 21 mg/dL 05/02/2025 3:[address] [facility] Creatinine, Plasma 0.73 0.70 - 1.20 mg/dL 05/02/2025 3:[address] [facility] BUN/Creatinine Ratio 16 05/02/2025 3:[address] [facility] Sodium, Plasma 134(L) 136 - 145 mmol/L 05/02/2025 3:[address] [facility] Potassium, Plasma 3.3(L) 3.6 - 4.9 mmol/L 05/02/2025 3:[address] [facility] Chloride, Plasma 90(L) 97 - 107 mmol/L 05/02/2025 3:[address] [facility] CO2, Plasma 37(H) 22 - 29 mmol/L 05/02/2025 3:[address] [facility] Anion Gap 7 6 - 16 mmol/L 05/02/2025 3:[address] [facility] Total Calcium, Plasma 8.7(L) 8.9 - 10.2 mg/dL 05/02/2025 3:[address] [facility] eGFRcr 112.9 mL/min/1.7 3m*2 05/02/2025 3:[address] [facility] Comment:Reported eGFRcr in m L/min/1.73m2 is based the CKD-EPI 2020 equation that does not use a race coefficient. Blood Venous blood specimen / Unknown Venipuncture / Unknown 05/02/2025 3:10 AM EDT 05/02/2025 3:15 AM EDT us Marjorie Myers MD LAB BLOOD ORDERABLES Final Resul t Performing Organization Address City/[facility]/ZIP Co de Phone Number [facility] [address] [place] [address] * (ABNORMAL) Magnesium, Plasma (05/02/2025 3:10 AM EDT) Magnesium, Plasma 1.6(L) 1.9 - 2.4 mg/dL 05/02/2025 3:45 AM EDT [facility] Blood Venous blood specimen / Unknown Venipuncture / Unknown 05/02/2025 3:10 AM EDT 05/02/2025 3:15 AM EDT us Marjorie Myers MD LAB BLOOD ORDERABLES Final Resul t Performing Organization Address [facility] [place] [address] * Phosphorus, Plasma (05/02/2025 3:10 AM EDT) Phosphorus, Plasma 3.0 2.5 - 4.5 mg/dL 05/02/2025 3:[address] [facility] Blood Venous blood specimen / Unknown Venipuncture / Unknown 05/02/2025 3:10 AM EDT 05/02/2025 3:15 AM EDT us Marjorie Myers MD LAB BLOOD ORDERABLES Final Resul t Performing Organization Address City/[facility] [place] [address] * Creatine Kinase (CK), Total (05/02/2025 3:10 AM EDT) Creatine Kinase, Plasma 50 49 - 320 U/L 05/02/2025 3:[address] [facility] Blood Venous blood specimen / Unknown Venipuncture / Unknown 05/02/2025 3:10 AM EDT 05/02/2025 3:15 AM EDT Marjorie Myers MD LAB BLOOD ORDERABLES Final Resul t Performing Organization Address City/[facility]/ZIP Co de Phone Number [facility] [address] [place] [address] * (ABNORMAL) POCT glucose meter (05/01/2025 8:26 PM EDT) POCT Glucose 316(H) 74 - 99 mg/dL [...] Comment 05/01/2025 8:27 PM EDT [facility] Spinning Frame Changer ID Stella Coleman 05/01/20 8:27 PM EDT [facility] Device ID [id number] 05/01/2025 8:27 PM EDT [facility] Specimen Type POC Capillary 05/01/2025 8:27 PM EDT [facility] Blood Capillary blood specimen / Unknown 05/01/2025 8:26 PM EDT 05/01/2025 8:27 PM EDT us Marjorie Myers MD LAB POINT OF CARE TE ST DOCKED DEVICE UNSOLICITED RESULTS Final Result [facility] [address] [place] [address] * (ABNORMAL) POCT glucose meter (05/01/2025 5:55 PM EDT) POCT Glucose 294(H) 74 - 99 mg/dL [...] Comment 05/01/2025 5:57 PM EDT [facility] Spinning Frame Changer ID Sebastián Kenny Amarjit 5:57 PM EDT [facility] Device ID [id number] 05/01/2025 5:57 PM EDT [facility] Specimen Type POC Capillary 05/01/2025 5:57 PM EDT [facility] Blood Capillary blood specimen / Unknown 05/01/2025 5:55 PM EDT 05/01/2025 5:57 PM EDT us Marjorie Myers MD LAB POINT OF CARE TE ST DOCKED DEVICE UNSOLICITED RESULTS Final Result Performing Organization Address City/State/[facility] Co de Phone Number [facility] [address] [place] [address] * (ABNORMAL) POCT glucose meter (05/01/2025 11:51 AM EDT) POCT Glucose 301(H) 74 - 99 mg/dL [...] 05/01/2025 11:53 AM EDT [facility] Spinning Frame Changer ID Sebastián Kenny Amarjit 11:53 AM EDT [facility] Device ID [id number] 05/01/2025 11:53 AM EDT [facility] Specimen Type POC Capillary 05/01/2025 11:53 AM EDT [facility] Blood Capillary blood specimen / Unknown 05/01/2025 11:51 AM EDT 05/01/2025 11:53 AM EDT us Marjorie Myers MD LAB POINT OF CARE TE ST DOCKED DEVICE UNSOLICITED RESULTS Final Result Performing Organization Address City/[facility] Co de Phone Number [facility] [address] [place] [address] * (ABNORMAL) POCT glucose meter (05/01/2025 9:13 AM EDT) POCT Glucose 252(H) 74 - 99 mg/dL [...] for testing. Comment 05/01/2025 9:15 AM EDT [facility] Spinning Frame Changer ID Francisco Javier Martin 05/01/2025 9:15 AM EDT [facility] Device ID [id number] 05/01/2025 9:15 AM EDT [facility] Specimen Type POC Capillary 05/01/2025 9:15 AM EDT [facility] Blood Capillary blood specimen / Unknown 05/01/2025 9:13 AM EDT 05/01/2025 9:15 AM EDT Marjorie Myers MD LAB POINT OF CARE TE ST DOCKED DEVICE UNSOLICITED RESULTS Final Result Performing Organization Address City/[facility] Co de Phone Number [facility] [address] [place] [address] * Surgical Pathology Exam (05/01/2025 8:13 AM EDT) Case Report Surgical Pathology Case: [id number] Authorizing Provider: Mary Vicente MD Collected: 05/01/2025 0813 Ordering Location: [facility] Received: 05/01/2025 0917 Pathologist: Vidya Ly MD Specimens: A) - Toe, Right, R 5th toe B) - Toe, Right, R 5th toe margin 05/09/2025 9:[address] [facility] Correction History Case amended to provide diagnosis after final decal sections received 05/09/2025 9:[address] [facility] Comment:These results have b een appended to a previously final verified report. Final Diagnosis A. RIGHT FIFTH TOE, AMPUTATION: - ULCER WITH SUPPURATIVE INFLAMMATION, GANGRENOUS NECROSIS, AND UNDERLYING ACUTE OSTEOMYELITIS. B. RIGHT FIFTH TOE MARGIN, RESECTION: - NO ACUTE OSTEOMYELITIS IDENTIFIED. 05/09/2025 9:[address] [facility] Amendment electronically signed by Vidya Ly MD on 05/09/2025 at 0956 EDT at 1233 EDT Comment:Corrected result: Pr eviously reported as [Previous value contains rich text formatting which cannot be displayed here] (see Result History) on 05/05/2025 at 1233 EDT. 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 Gross Description A. R 5TH [...] The wound extends into the underlying bone. 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 R 5TH TOE MARGIN The specimen is received fresh and placed in formalin, labeled R 5th toe MARGIN , and consists of a 2.8 x 2.8 x 0.6 cm aggregate of hemorrhagic bony fragments. The specimen is entirely submitted in cassette B1, following decalcification. Cold Time: 25m BLAS Kwok ([facility]) 05/09/2025 9:[address] [facility] Note: 05/09/2025 9:[address] [facility] Comment:Corrected result: Pr eviously reported [...] chronic osteomyelitis of right foot (CMS/HCC) [M86.671] Mary Vicente MD LAB PATHOLOGY ORDERABLES Edited Result - Final Performing Organization Address City/[facility]/ZIP Co de Phone Number [facility] [address] [place] [address] * Type and Screen (05/01/2025 6:49 AM EDT) ABO/Rh O Positive 05/01/2025 6:53 AM EDT [facility] Antibody Screen Negative 05/01/2025 6:53 AM EDT [facility]LO[facility] Specimen Expiration 05/04/2025 23:59 05/01/2025 6:53 AM EDT [facility] Blood Venous blood specimen / Unknown Venipuncture / Unknown 05/01/2025 6:49 AM EDT 05/01/2025 6:53 AM EDT Yanna Calhoun DO LAB BLOOD BANK TEST ORDERA BLES Final Result Performing Organization Address [facility] Co de Phone Number BLOOD BANK [address] [place] [address], * (ABNORMAL) POCT glucose meter (05/01/2025 6:48 AM EDT) POCT Glucose 222(H) 74 - 99 mg/dL 05/01/2025 6:50 AM EDT [facility] Comment:Accuracy of a glucos e result [...] Comment 05/01/2025 6:50 AM EDT [facility] Spinning Frame Changer ID Emelina Romero 6:50 AM EDT [facility] Device ID [id number] 05/01/2025 6:50 AM EDT [facility] Specimen Type POC Venous 05/01/2025 6:50 AM EDT [facility] Blood Venous blood specimen / Unknown 05/01/2025 6:48 AM EDT 05/01/2025 6:50 AM EDT us Marjorie Myers MD LAB POINT OF CARE TE ST DOCKED DEVICE UNSOLICITED RESULTS Final Result Performing Organization Address City/[facility]/ZIP Co de Phone Number [facility] [address] [place] [address] * Creatine Kinase (CK), Total (05/01/2025 2:14 AM EDT) Creatine Kinase, Plasma 60 49 - 320 U/L 05/01/2025 2:[address] [facility] Blood Venous blood specimen / Unknown Venipuncture / Unknown 05/01/2025 2:14 AM EDT 05/01/2025 2:26 AM EDT us Marjorie Myers MD LAB BLOOD ORDERABLES Final Resul t [facility] [address] [place] [address] * (ABNORMAL) CBC and Differential (05/01/2025 2:14 AM EDT) WBC Count 6.96 3.70 - 10.30 10*3/uL LAB HEMATOLOGY METHOD 05/01/2025 2:[address] [facility] RBC Count 4.23(L) 4.60 - 6.10 10*6/uL LAB HEMATOLOGY METHOD 05/01/2025 2:[address] [facility] HGB 9.8(L) 13.7 - 17.5 g/dL LAB HEMATOLOGY METHOD 05/01/2025 2:[address] [facility] HCT 32.5(L) 40.0 - 51.0 % LAB HEMATOLOGY METHOD 05/01/2025 2:[address] [facility] Platelet Count 218 155 - 369 10*3/uL LAB HEMATOLOGY METHOD 05/01/2025 2:[address] [facility] MCV 77(L) 79 - 98 fL LAB HEMATOLOGY METHOD 05/01/2025 2:[address] [facility] MCH 23.2(L) 26.0 - 32.0 pg LAB HEMATOLOGY METHOD 05/01/2025 2:[address] [facility] MCHC 30.2(L) 30.7 - 35.5 g/dL LAB HEMATOLOGY METHOD 05/01/2025 2:[address] [facility] RDW 19.1(H) 11.5 - 14.5 % LAB HEMATOLOGY METHOD 05/01/2025 2:[address] [facility] MPV 8.4(L) 8.8 - 12.5 fL LAB HEMATOLOGY METHOD 05/01/2025 2:[address] [facility] nRBC 0.0 <=0.0 per 100 WBCs LAB HEMATOLOGY METHOD 05/01/2025 2:[address] [facility] Differential Type Automated LAB HEMATOLOGY METHOD 05/01/2025 2:[address] [facility] Neutrophils % 76 % LAB HEMATOLOGY METHOD 05/01/2025 2:[address] [facility] Lymphocytes % 11 % LAB HEMATOLOGY METHOD 05/01/2025 2:[address] [facility] Monocytes % 8 % LAB HEMATOLOGY METHOD 05/01/2025 2:[address] [facility] Eosinophils % 4 % LAB HEMATOLOGY METHOD 05/01/2025 2:[address] [facility] Basophils % 0 % LAB HEMATOLOGY METHOD 05/01/2025 2:[address] [facility] Immature Granulocytes % 1 % LAB HEMATOLOGY METHOD 05/01/2025 2:[address] [facility] Neutrophils Absolute 5.26 1.60 - 6.10 10*3/uL LAB HEMATOLOGY METHOD 05/01/2025 2:[address] [facility] Lymphocytes Absolute 0.79(L) 1.20 - 3.90 10*3/uL LAB HEMATOLOGY METHOD 05/01/2025 2:[address] [facility] Monocytes Absolute 0.57 0.30 - 0.90 10*3/uL LAB HEMATOLOGY METHOD 05/01/2025 2:[address] [facility] Eosinophils Absolute 0.28 0.00 - 0.50 10*3/uL LAB HEMATOLOGY METHOD 05/01/2025 2:[address] [facility] Basophils Absolute 0.02 0.00 - 0.10 10*3/uL LAB HEMATOLOGY METHOD 05/01/2025 2:[address] [facility] Immature Granulocytes Absolute 0.04 0.00 - 0.06 10*3/uL LAB HEMATOLOGY METHOD 05/01/2025 2:[address] [facility] Blood Venous blood specimen / Unknown Venipuncture / Unknown 05/01/2025 2:14 AM EDT 05/01/2025 2:[address] [facility] - 05/01/2025 2:37 AM EDT Therapeutic decision making should be based on absolute values, rather than percentages. Marjorie Myers MD LAB BLOOD ORDERABLES Final Resul t [facility] [address] [place] [address] * (ABNORMAL) Basic Metabolic Panel, Plasma (05/01/2025 2:14 AM EDT) Glucose, Plasma 266(H) 74 - 99 mg/dL 05/01/2025 2:[address] [facility] BUN, Plasma 9 7 - 21 mg/dL 05/01/2025 2:[address] [facility] Creatinine, Plasma 0.71 0.70 - 1.20 mg/dL 05/01/2025 2:[address] [facility] BUN/Creatinine Ratio 13 05/01/2025 2:[address] [facility] Sodium, Plasma 137 136 - 145 mmol/L 05/01/2025 2:[address] [facility] Potassium, Plasma 3.4(L) 3.6 - 4.9 mmol/L 05/01/2025 2:[address] [facility] Chloride, Plasma 91(L) 97 - 107 mmol/L 05/01/2025 2:[address] [facility] CO2, Plasma 36(H) 22 - 29 mmol/L 05/01/2025 2:[address] [facility] Anion Gap 10 6 - 16 mmol/L 05/01/2025 2:[address] [facility] Total Calcium, Plasma 8.6(L) 8.9 - 10.2 mg/dL 05/01/2025 2:[address] [facility] eGFRcr 113.9 mL/min/1.7 3m*2 05/01/2025 2:[address] [facility] Comment:Reported eGFRcr in m L/min/1.73m2 is based the CKD-EPI 2020 equation that does not use a race coefficient. Blood Venous blood specimen / Unknown Venipuncture / Unknown 05/01/2025 2:14 AM EDT 05/01/2025 2:26 AM EDT Marjorie Myers MD LAB BLOOD ORDERABLES Final Resul t Performing Organization Address City/[facility]/ZIP Co de Phone Number [facility] [address] [place] [address] * (ABNORMAL) Magnesium, Plasma (05/01/2025 2:14 AM EDT) Magnesium, Plasma 1.8(L) 1.9 - 2.4 mg/dL 05/01/2025 2:[address] [facility] Blood Venous blood specimen / Unknown Venipuncture / Unknown 05/01/2025 2:14 AM EDT 05/01/2025 2:26 AM EDT us Marjorie Myers MD LAB BLOOD ORDERABLES Final Resul t Performing Organization Address City/[facility]/ZIP Co de Phone Number [facility] [address] [place] [address] * Phosphorus, Plasma (05/01/2025 2:14 AM EDT) Pathologist [facility] Phosphorus, Plasma 3.0 2.5 - 4.5 mg/dL 05/01/2025 2:[address] [facility] Blood Venous blood specimen / Unknown Venipuncture / Unknown 05/01/2025 2:14 AM EDT 05/01/2025 2:26 AM EDT us Marjorie Myers MD LAB BLOOD ORDERABLES Final Resul t [facility] [address] [place] [address] * (ABNORMAL) POCT glucose meter (04/30/2025 8:21 PM EDT) [facility] POCT Glucose 226(H) 74 - 99 mg/dL [...] 04/30/2025 8:23 PM EDT [facility] Spinning Frame Changer ID Sandra Perez 04/30/20 25 8:23 PM EDT [facility] Device ID [id number] 04/30/2025 8:23 PM EDT [facility] Specimen Type POC Capillary 04/30/2025 8:23 PM EDT [facility] Blood Capillary blood specimen / Unknown 04/30/2025 8:21 PM EDT 04/30/2025 8:23 PM EDT us Marjorie Myers MD LAB POINT OF CARE TE ST DOCKED DEVICE UNSOLICITED RESULTS Final Result [facility] [address] [place] [address] * (ABNORMAL) POCT glucose meter (04/30/2025 4:19 PM EDT) [facility] POCT Glucose 173(H) 74 - 99 mg/dL [...] 04/30/2025 4:54 PM EDT [facility] Spinning Frame Changer ID Priyanka Negrete 04/30/20 4:54 PM EDT [facility] Device ID [id number] 04/30/2025 4:54 PM EDT [facility] Specimen Type POC Capillary 04/30/2025 4:54 PM EDT [facility] Blood Capillary blood specimen / Unknown 04/30/2025 4:19 PM EDT 04/30/2025 4:54 PM EDT Marjorie Myers MD LAB POINT OF CARE TE ST DOCKED DEVICE UNSOLICITED RESULTS Final Result [facility] [address] [place] [address] * (ABNORMAL) POCT glucose meter (04/30/2025 12:11 PM EDT) [facility] POCT Glucose 226(H) 74 - 99 mg/dL [...] 04/30/2025 12:50 PM EDT [facility] Spinning Frame Changer ID Priyanka Negrete 04/30/20 12:50 PM EDT [facility] Device ID [id number] 04/30/2025 12:50 PM EDT [facility] Specimen Type POC Capillary 04/30/2025 12:50 PM EDT [facility] Blood Capillary blood specimen / Unknown 04/30/2025 12:11 PM EDT 04/30/2025 12:50 PM EDT Marjorie Myers MD LAB POINT OF CARE TE ST DOCKED DEVICE UNSOLICITED RESULTS Final Result Performing Organization Address City/[facility] Co de Phone Number [facility] [address] [place] [address] * (ABNORMAL) POCT glucose meter (04/30/2025 8:18 AM EDT) [facility] POCT Glucose 212(H) 74 - 99 mg/dL [...] Comment 04/30/2025 8:55 AM EDT [facility] Spinning Frame Changer ID Priyanka Negrete 04/30/20 8:55 AM EDT [facility] Device ID [id number] 04/30/2025 8:55 AM EDT [facility] Specimen Type POC Capillary 04/30/2025 8:55 AM EDT [facility] Blood Capillary blood specimen / Unknown 04/30/2025 8:18 AM EDT 04/30/2025 8:55 AM EDT Marjorie Myers MD LAB POINT OF CARE TE ST DOCKED DEVICE UNSOLICITED RESULTS Final Result Performing Organization Address City/[facility]/ZIP Co de Phone Number [facility] [address] [place] [address] * (ABNORMAL) CBC and Differential (04/30/2025 3:19 AM EDT) [facility] WBC Count 8.84 3.70 - 10.30 10*3/uL LAB HEMATOLOGY METHOD 04/30/2025 3:[address] [facility] RBC Count 4.31(L) 4.60 - 6.10 10*6/uL LAB HEMATOLOGY METHOD 04/30/2025 3:[address] [facility] HGB 9.6(L) 13.7 - 17.5 g/dL LAB HEMATOLOGY METHOD 04/30/2025 3:[address] [facility] HCT 32.6(L) 40.0 - 51.0 % LAB HEMATOLOGY METHOD 04/30/2025 3:[address] [facility] Platelet Count 245 155 - 369 10*3/uL LAB HEMATOLOGY METHOD 04/30/2025 3:[address] [facility] MCV 76(L) 79 - 98 fL LAB HEMATOLOGY METHOD 04/30/2025 3:[address] [facility] MCH 22.3(L) 26.0 - 32.0 pg LAB HEMATOLOGY METHOD 04/30/2025 3:[address] [facility] MCHC 29.4(L) 30.7 - 35.5 g/dL LAB HEMATOLOGY METHOD 04/30/2025 3:[address] [facility] RDW 19.1(H) 11.5 - 14.5 % LAB HEMATOLOGY METHOD 04/30/2025 3:[address] [facility] MPV 8.5(L) 8.8 - 12.5 fL LAB HEMATOLOGY METHOD 04/30/2025 3:[address] [facility] nRBC 0.0 <=0.0 per 100 WBCs LAB HEMATOLOGY METHOD 04/30/2025 3:[address] [facility] Differential Type Automated LAB HEMATOLOGY METHOD 04/30/2025 3:[address] [facility] Neutrophils % 78 % LAB HEMATOLOGY METHOD 04/30/2025 3:[address] [facility] Lymphocytes % 11 % LAB HEMATOLOGY METHOD 04/30/2025 3:[address] [facility] Monocytes % 7 % LAB HEMATOLOGY METHOD 04/30/2025 3:[address] [facility] Eosinophils % 3 % LAB HEMATOLOGY METHOD 04/30/2025 3:[address] [facility] Basophils % 0 % LAB HEMATOLOGY METHOD 04/30/2025 3:[address] [facility] Immature Granulocytes % 1 % LAB HEMATOLOGY METHOD 04/30/2025 3:[address] [facility] Neutrophils Absolute 6.90(H) 1.60 - 6.10 10*3/uL LAB HEMATOLOGY METHOD 04/30/2025 3:[address] [facility] Lymphocytes Absolute 0.95(L) 1.20 - 3.90 10*3/uL LAB HEMATOLOGY METHOD 04/30/2025 3:[address] [facility] Monocytes Absolute 0.64 0.30 - 0.90 10*3/uL LAB HEMATOLOGY METHOD 04/30/2025 3:[address] [facility] Eosinophils Absolute 0.29 0.00 - 0.50 10*3/uL LAB HEMATOLOGY METHOD 04/30/2025 3:[address] [facility] Basophils Absolute 0.02 0.00 - 0.10 10*3/uL LAB HEMATOLOGY METHOD 04/30/2025 3:[address] [facility] Immature Granulocytes Absolute 0.04 0.00 - 0.06 10*3/uL LAB HEMATOLOGY METHOD 04/30/2025 3:[address] [facility] Blood Venous blood specimen / Unknown Venipuncture / Unknown 04/30/2025 3:19 AM EDT 04/30/2025 3:[address] [facility] - 04/30/2025 3:35 AM EDT Therapeutic decision making should be based on absolute values, rather than percentages. us Marjorie Myers MD LAB BLOOD ORDERABLES Final Resul t [facility] [address] [place] [address] * (ABNORMAL) Basic Metabolic Panel, Plasma (04/30/2025 3:19 AM EDT) Glucose, Plasma 254(H) 74 - 99 mg/dL 04/30/2025 3:[address] [facility] BUN, Plasma 11 7 - 21 mg/dL 04/30/2025 3:[address] [facility] Creatinine, Plasma 0.77 0.70 - 1.20 mg/dL 04/30/2025 3:[address] [facility] BUN/Creatinine Ratio 14 04/30/2025 3:[address] [facility] Sodium, Plasma 137 136 - 145 mmol/L 04/30/2025 3:[address] [facility] Potassium, Plasma 3.3(L) 3.6 - 4.9 mmol/L 04/30/2025 3:[address] [facility] Chloride, Plasma 91(L) 97 - 107 mmol/L 04/30/2025 3:[address] [facility] CO2, Plasma 36(H) 22 - 29 mmol/L 04/30/2025 3:[address] [facility] Anion Gap 10 6 - 16 mmol/L 04/30/2025 3:[address] [facility] Total Calcium, Plasma 8.7(L) 8.9 - 10.2 mg/dL 04/30/2025 3:[address] [facility] eGFRcr 111.1 mL/min/1.7 3m*2 04/30/2025 3:[address] [facility] Comment:Reported eGFRcr in m L/min/1.73m2 is based the CKD-EPI 2020 equation that does not use a race coefficient. Blood Venous blood specimen / Unknown Venipuncture / Unknown 04/30/2025 3:19 AM EDT 04/30/2025 3:26 AM EDT us Marjorie Myers MD LAB BLOOD ORDERABLES Final Resul t [facility] [address] [place] [address] * (ABNORMAL) Magnesium, Plasma (04/30/2025 3:19 AM EDT) Magnesium, Plasma 1.5(L) 1.9 - 2.4 mg/dL 04/30/2025 3:[address] [facility] Blood Venous blood specimen / Unknown Venipuncture / Unknown 04/30/2025 3:19 AM EDT 04/30/2025 3:26 AM EDT us Marjorie Myers MD LAB BLOOD ORDERABLES Final Resul t [facility] [address] [place] [address] * Phosphorus, Plasma (04/30/2025 3:19 AM EDT) Pathologist [facility] Phosphorus, Plasma 2.7 2.5 - 4.5 mg/dL 04/30/2025 3:[address] [facility] Blood Venous blood specimen / Unknown Venipuncture / Unknown 04/30/2025 3:19 AM EDT 04/30/2025 3:26 AM EDT us Marjorie Myers MD LAB BLOOD ORDERABLES Final Resul t Performing Organization Address [facility] Co de Phone Number [facility] [address] [place] [address] * (ABNORMAL) POCT glucose meter (04/29/2025 7:38 PM EDT) [facility] POCT Glucose 191(H) 74 - 99 mg/dL [...] 04/29/2025 9:20 PM EDT [facility] Spinning Frame Changer ID Ervin Du V 025 9:20 PM EDT [facility] Device ID [id number] 04/29/2025 9:20 PM EDT [facility] Specimen Type POC Capillary 04/29/2025 9:20 PM EDT [facility] Blood Capillary blood specimen / Unknown 04/29/2025 7:38 PM EDT 04/29/2025 9:20 PM EDT us Marjorie Myers MD LAB POINT OF CARE TE ST DOCKED DEVICE UNSOLICITED RESULTS Final Result Performing Organization Address City/[facility]/ZIP Co de Phone Number [facility] [address] [place] [address] * (ABNORMAL) POCT glucose meter (04/29/2025 5:21 PM EDT) Pathologist [facility] POCT Glucose 241(H) 74 - 99 mg/dL [...] Comment 04/29/2025 5:23 PM EDT [facility] Spinning Frame Changer ID Rocio Dozier 04/29/20 5:23 PM EDT [facility] Device ID [id number] 04/29/2025 5:23 PM EDT [facility] Specimen Type POC Capillary 04/29/2025 5:23 PM EDT [facility] Blood Capillary blood specimen / Unknown 04/29/2025 5:21 PM EDT 04/29/2025 5:23 PM EDT Marjorie Myers MD LAB POINT OF CARE TE ST DOCKED DEVICE UNSOLICITED RESULTS Final Result Performing Organization Address City/State/[facility] Co de Phone Number [facility] [address] [place] [address] * (ABNORMAL) POCT glucose meter (04/29/2025 11:15 AM EDT) Pathologist [facility] POCT Glucose 204(H) 74 - 99 mg/dL [...] for testing. Comment 04/29/2025 11:17 AM EDT [facility] Spinning Frame Changer ID Rocio Dozier 04/29/20 11:17 AM EDT [employer] [facility] LAB Device ID [id number] 04/29/2025 11:17 AM EDT [facility] Specimen Type POC Capillary 04/29/2025 11:17 AM EDT [facility] Blood Capillary blood specimen / Unknown 04/29/2025 11:15 AM EDT 04/29/2025 11:17 AM EDT Marjorie Myers MD LAB POINT OF CARE TE ST DOCKED DEVICE UNSOLICITED RESULTS Final Result Performing Organization Address City/[facility]/ZIP Co de Phone Number [facility] [address] [place] [address] * (ABNORMAL) POCT glucose meter (04/29/2025 7:13 [...] for testing. Comment 04/29/2025 7:14 AM EDT [facility] Spinning Frame Changer ID Rocio Dozier 04/29/20 7:14 AM EDT [facility] Device ID [id number] 04/29/2025 7:14 AM EDT [facility] Specimen Type POC Capillary 04/29/2025 7:14 AM EDT [facility] Blood Capillary blood specimen / Unknown 04/29/2025 7:13 AM EDT 04/29/2025 7:14 AM EDT Marjorie Myers MD LAB POINT OF CARE TE ST DOCKED DEVICE UNSOLICITED RESULTS Final Result [facility] [address] [place] [address] * Folate (04/29/2025 3:04 AM EDT) Folate, Serum 10.5 >4.6 ng/mL 04/29/2025 4:[address] [facility] Blood Venous blood specimen / Unknown Venipuncture / Unknown 04/29/2025 3:04 AM EDT 04/29/2025 3:20 AM EDT us Sy De La Fuente APRN, DENISE LAB BLOOD ORDERABLES Fin al Result Performing Organization Address City/[facility]/ZIP Co de Phone Number [facility] [address] [place] [address] * Vitamin B12 (04/29/2025 3:04 AM EDT) Vitamin B12, Serum 338 210 - 1,033 pg/mL 04/29/2025 4:[address] [facility] Blood Venous blood specimen / Unknown Venipuncture / Unknown 04/29/2025 3:04 AM EDT 04/29/2025 3:20 AM EDT us Sy De La Fuente APRN, DENISE LAB BLOOD ORDERABLES Fin al Result Performing Organization Address [facility] Co de Phone Number [facility] [address] [place] [address] * (ABNORMAL) Iron & Total Iron Binding Capacity, Plasma (Includes Transferrin) (04/29/2025 3:04 AM EDT) Iron, Plasma 36(L) 50 - 170 ug/dL 04/29/2025 3:[address] [facility] Transferrin, Plasma 197(L) 200 - 360 mg/dL 04/29/2025 3:[address] [facility] Total Iron Binding Capacity, Plasma 246 240 - 450 ug/mL 04/29/2025 3:[address] [facility] Transferrin Saturation 15 14 - 50 % 04/29/2025 3:[address] [facility] Blood Venous blood specimen / Unknown Venipuncture / Unknown 04/29/2025 3:04 AM EDT 04/29/2025 3:19 AM EDT us Sy De La Fuente APRN, DNP LAB BLOOD ORDERABLES Fin al Result Performing Organization Address City/[facility]/ZIP Co de Phone Number [facility] [address] [place] [address] * Ferritin (04/29/2025 3:04 AM EDT) Ferritin, Serum 40 20 - 400 ng/mL 04/29/2025 4:06 AM EDT [facility] Blood Venous blood specimen / Unknown Venipuncture / Unknown 04/29/2025 3:04 AM EDT 04/29/2025 3:20 AM EDT us Sy De La Fuente APRN, DNP LAB BLOOD ORDERABLES Fin al Result Performing Organization Address City/[facility]/ZIP Co de Phone Number [facility] [address] [place] [address] * Cortisol (04/29/2025 3:04 AM EDT) Cortisol 2.80 Before 10am: 3.7 - 19.4. After 5pm: 2.9 - 17.3 ug/dL 04/29/2025 4:[address] [facility] Comment:Testing performed on [employer], standardized against [employer] Reference Standard concentration values assigned by LC-MS/MS and verified by BCR 192 and BCR 193 certified reference materials. Blood Venous blood specimen / Unknown Venipuncture / Unknown 04/29/2025 3:04 AM EDT 04/29/2025 3:19 AM EDT us Sy De La Fuente APRN, [facility] REF LAB BLOOD AND FL UID ORD Final Result Performing Organization Address City/[facility]/ZIP Co de Phone Number [facility] [address] [place] [address] * TSH (04/29/2025 3:04 AM EDT) Thyroid Stimulating Hormone, Plasma 1.58 0.40 - 4.20 uIU/mL 04/29/2025 3:[address] [facility] Blood Venous blood specimen / Unknown Venipuncture / Unknown 04/29/2025 3:04 AM EDT 04/29/2025 3:19 AM EDT us Sy De La Fuente APRN, DNP LAB BLOOD ORDERABLES Fin al Result Performing Organization Address City/[facility]/ZIP Co de Phone Number [facility] [address] [place] [address] * (ABNORMAL) Hemoglobin A1c (04/29/2025 3:04 AM EDT) Hemoglobin A1c 8.9(H) <5.7 % 04/29/2025 9:[address] [facility] Blood Venous blood specimen / Unknown Venipuncture / Unknown 04/29/2025 3:04 AM EDT 04/29/2025 3:[address] [facility] - 04/29/2025 9:40 AM EDT HA1C Interpretive Data: Diagnosis of Diabetes: Diabetic > or = 6.5% Pre-diabetic 5.7 to 6.4% Non-diabetic < or = 5.6% Glycemic Targets for Type I and Type II Diabetics: Non- Adults <7.0% Adults <6.0% Children and Adolescents <7.5% Source: [place] [employer]. Standards of medical care in diabetes,2017. Diabetes Care.2017:40 (suppl 1):S1-S135. us Sy De La Fuente APRN, DNP LAB BLOOD ORDERABLES Fin al Result Performing Organization Address [facility] Co de Phone Number [facility] [address] [place] [address] * Phosphorus (04/29/2025 3:04 AM EDT) Phosphorus, Plasma 3.6 2.5 - 4.5 mg/dL 04/29/2025 3:[address] [facility] Blood Venous blood specimen / Unknown Venipuncture / Unknown 04/29/2025 3:04 AM EDT 04/29/2025 3:19 AM EDT Sy De La Fuente APRN, DNP LAB BLOOD ORDERABLES Fin al Result Performing Organization Address City/[facility]/ZIP Co de Phone Number [facility] [address] [place] [address] * (ABNORMAL) Magnesium, Plasma (04/29/2025 3:04 AM EDT) Magnesium, Plasma 1.7(L) 1.9 - 2.4 mg/dL 04/29/2025 3:[address] [facility] Blood Venous blood specimen / Unknown Venipuncture / Unknown 04/29/2025 3:04 AM EDT 04/29/2025 3:19 AM EDT us Sy De La Fuente CONCIERGE, DNP LAB BLOOD ORDERABLES Fin al Result [facility] [address] [place] [address] * (ABNORMAL) Comprehensive metabolic panel (04/29/2025 3:04 AM EDT) Glucose, Plasma 219(H) 74 - 99 mg/dL 04/29/2025 3:[address] [facility] BUN, Plasma 9 7 - 21 mg/dL 04/29/2025 3:[address] [facility] Creatinine, Plasma 0.94 0.70 - 1.20 mg/dL 04/29/2025 3:[address] [facility] BUN/Creatinine Ratio 04/29/2025 3:[address] [facility] Sodium, Plasma 137 136 - 145 mmol/L 04/29/2025 3:[address] [facility] Potassium, Plasma 3.1(L) 3.6 - 4.9 mmol/L 04/29/2025 3:[address] [facility] Chloride, Plasma 92(L) 97 - 107 mmol/L 04/29/2025 3:[address] [facility] CO2, Plasma 38(H) 22 - 29 mmol/L 04/29/2025 3:[address] [facility] Anion Gap 7 6 - 16 mmol/L 04/29/2025 3:[address] [facility] Total Calcium, Plasma 8.6(L) 8.9 - 10.2 mg/dL 04/29/2025 3:[address] [facility] Total Protein 7.4 6.3 - 7.9 g/dL 04/29/2025 3:[address] [facility] Albumin, Plasma 3.3(L) 3.5 - 5.2 g/dL 04/29/2025 3:[address] [facility] AST, Plasma 18 10 - 50 U/L 04/29/2025 3:[address] [facility] ALT, Plasma 11 10 - 50 U/L 04/29/2025 3:[address] [facility] Alkaline Phosphatase, Plasma 55 40 - 115 U/L 04/29/2025 3:[address] [facility] Total Bilirubin, Plasma 0.8 0.2 - 1.1 mg/dL 04/29/2025 3:[address] [facility] eGFRcr 100.6 mL/min/1.7 3m*2 04/29/2025 3:[address] [facility] Comment:Reported eGFRcr in m L/min/1.73m2 is based the CKD-EPI 2020 equation that does not use a race coefficient. Blood Venous blood specimen / Unknown Venipuncture / Unknown 04/29/2025 3:04 AM EDT 04/29/2025 3:19 AM EDT us Sy De La Fuente CONCIERGE, DNP LAB BLOOD ORDERABLES Fin al Result [facility] [address] [place] [address] * (ABNORMAL) CBC and Differential (04/29/2025 3:04 AM EDT) WBC Count 6.68 3.70 - 10.30 10*3/uL LAB HEMATOLOGY METHOD 04/29/2025 3:[address] [facility] RBC Count 4.21(L) 4.60 - 6.10 10*6/uL LAB HEMATOLOGY METHOD 04/29/2025 3:[address] [facility] HGB 9.4(L) 13.7 - 17.5 g/dL LAB HEMATOLOGY METHOD 04/29/2025 3:[address] [facility] HCT 32.0(L) 40.0 - 51.0 % LAB HEMATOLOGY METHOD 04/29/2025 3:[address] [facility] Platelet Count 249 155 - 369 10*3/uL LAB HEMATOLOGY METHOD 04/29/2025 3:[address] [facility] MCV 76(L) 79 - 98 fL LAB HEMATOLOGY METHOD 04/29/2025 3:[address] [facility] MCH 22.3(L) 26.0 - 32.0 pg LAB HEMATOLOGY METHOD 04/29/2025 3:[address] [facility] MCHC 29.4(L) 30.7 - 35.5 g/dL LAB HEMATOLOGY METHOD 04/29/2025 3:[address] [facility] RDW 19.6(H) 11.5 - 14.5 % LAB HEMATOLOGY METHOD 04/29/2025 3:[address] [facility] MPV 8.4(L) 8.8 - 12.5 fL LAB HEMATOLOGY METHOD 04/29/2025 3:[address] [facility] nRBC 0.0 <=0.0 per 100 WBCs LAB HEMATOLOGY METHOD 04/29/2025 3:[address] [facility] Differential Type Automated LAB HEMATOLOGY METHOD 04/29/2025 3:[address] [facility] Neutrophils % 75 % LAB HEMATOLOGY METHOD 04/29/2025 3:[address] [facility] Lymphocytes % 11 % LAB HEMATOLOGY METHOD 04/29/2025 3:[address] [facility] Monocytes % 9 % LAB HEMATOLOGY METHOD 04/29/2025 3:[address] [facility] Eosinophils % 4 % LAB HEMATOLOGY METHOD 04/29/2025 3:[address] [facility] Basophils % 0 % LAB HEMATOLOGY METHOD 04/29/2025 3:[address] [facility] Immature Granulocytes % 1 % LAB HEMATOLOGY METHOD 04/29/2025 3:[address] [facility] Neutrophils Absolute 5.01 1.60 - 6.10 10*3/uL LAB HEMATOLOGY METHOD 04/29/2025 3:[address] [facility] Lymphocytes Absolute 0.75(L) 1.20 - 3.90 10*3/uL LAB HEMATOLOGY METHOD 04/29/2025 3:[address] [facility] Monocytes Absolute 0.59 0.30 - 0.90 10*3/uL LAB HEMATOLOGY METHOD 04/29/2025 3:[address] [facility] Eosinophils Absolute 0.26 0.00 - 0.50 10*3/uL LAB HEMATOLOGY METHOD 04/29/2025 3:[address] [facility] Basophils Absolute 0.03 0.00 - 0.10 10*3/uL LAB HEMATOLOGY METHOD 04/29/2025 3:[address] [facility] Immature Granulocytes Absolute 0.04 0.00 - 0.06 10*3/uL LAB HEMATOLOGY METHOD 04/29/2025 3:[address] [facility] Blood Venous blood specimen / Unknown Venipuncture / Unknown 04/29/2025 3:04 AM EDT 04/29/2025 3:[address] [facility] - 04/29/2025 3:16 AM EDT Therapeutic decision making should be based on absolute values, rather than percentages. Sy De La Fuente CONCIERGE, DNP LAB BLOOD ORDERABLES Fin al Result [facility] [address] [place] [address] * (ABNORMAL) POCT glucose meter (04/28/2025 9:06 [...] Comment 04/28/2025 9:08 PM EDT [facility] Spinning Frame Changer ID Azam Poolealiza 04/28/2025 9:08 PM EDT [facility] Device ID [id number] 04/28/2025 9:08 PM EDT [facility] Specimen Type POC Capillary 04/28/2025 9:08 PM EDT [facility] Blood Capillary blood specimen / Unknown 04/28/2025 9:06 PM EDT 04/28/2025 9:08 PM EDT Marjorie Myers MD LAB POINT OF CARE TE ST DOCKED DEVICE UNSOLICITED RESULTS Final Result Performing Organization Address City/[facility] Co de Phone Number [facility] [address] [place] [address] * (ABNORMAL) POCT glucose meter (04/28/2025 5:34 PM EDT) POCT Glucose 213(H) 74 - 99 mg/dL [...] Comment 04/28/2025 5:38 PM EDT [facility] Spinning Frame Changer ID Ailyn Finch 5:38 PM EDT [facility] Device ID [id number] 04/28/2025 5:38 PM EDT [facility] Specimen Type POC Capillary 04/28/2025 5:38 PM EDT [facility] Blood Capillary blood specimen / Unknown 04/28/2025 5:34 PM EDT 04/28/2025 5:38 PM EDT Marjorie Myers MD LAB POINT OF CARE TE ST DOCKED DEVICE UNSOLICITED RESULTS Final Result Performing Organization Address City/[facility]/ZIP Co de Phone Number [facility] [address] [place] [address] * (ABNORMAL) POCT glucose meter (04/28/2025 3:51 [...] for testing. Comment 04/28/2025 3:54 PM EDT [facility] Spinning Frame Changer ID Ailyn Finch 3:54 PM EDT [facility] Device ID [id number] 04/28/2025 3:54 PM EDT [facility] Specimen Type POC Capillary 04/28/2025 3:54 PM EDT [facility] Blood Capillary blood specimen / Unknown 04/28/2025 3:51 PM EDT 04/28/2025 3:54 PM EDT Marjorie Myers MD LAB POINT OF CARE TE ST DOCKED DEVICE UNSOLICITED RESULTS Final Result Performing Organization Address City/State/[facility] Co de Phone Number [facility] [address] [place] [address] * VAS Ankle Brachial Index - GABBI [...] are demonstrated at the levels of the PETROLEUM INSPECTOR and DPA. Segmental pressures are within normal limits with a PETROLEUM INSPECTOR GABBI of 1.1 (172 mmHg) and a DPA GABBI of 1.0 (149 mmHg). Digit pressures are of 122 mmHg. Left: Multiphasic waveforms are demonstrated at the levels of the PETROLEUM INSPECTOR and DPA. Segmental pressures are within normal limits with a PETROLEUM INSPECTOR GABBI of 1.1 (164 mmHg) and a DPA GABBI of 1.0 (153 mmHg). Digit pressures are of 151 mmHg. Procedure Note Chris Schaefer MD - 04/28/2025 CLINICAL INDICATION: Diabetic foot ulcer TECHNIQUE: Non-invasive, continuous wave Doppler exam with segmental pressures andspectral analysis of the lower extremity was performed. COMPARISON: None. FINDINGS: Right: Multiphasic waveforms are demonstrated at the levels of the PETROLEUM INSPECTOR andDPA. Segmental pressures are within normal limits with a PETROLEUM INSPECTOR GABBI of 1.1(172 mmHg) and a DPA GABBI of 1.0 (149 mmHg). Digit pressures are of 122mmHg. Left: Multiphasic waveforms are demonstrated at the levels of the PETROLEUM INSPECTOR andDPA. Segmental pressures are within normal limits with a PETROLEUM INSPECTOR GABBI of 1.1(164 mmHg) and a DPA [...] on04/28/2025 4:14 PM Sy De La Fuente CONCIERGE, DNP CV VASCULAR PROCEDURES F inal Result * Multi Drug Resistance Test (04/28/2025 1:44 PM EDT) Culture No Multi Drug Resistant Organisms Isolated 04/29/2025 2:[address] [facility] Swab (Nares and Saba Rectal) Non-blood Collection / Unknown 04/28/2025 1:44 PM EDT 04/28/2025 2:[address] [facility] - 04/29/2025 2:32 PM EDT This test was developed and its performance characteristics determined by the [facility]. Although the media is FDA-approved, it is not FDA-approved for all specimen types submitted. The FDA has determined that such clearance or approval is not necessary. This test is used for surveillance purposes. It should not be regarded as investigational or for research. The [facility] is certified under the Clinical Laboratory Improvement Amendments of 1988 (CLIA-88) as qualified to perform high complexity clinical laboratory testing. Sy De La Fuente APRN, DENISE LAB MICROBIOLOGY - GENER AL ORDERABLES Final Result [facility] [address] [place] [address] * (ABNORMAL) POCT glucose meter (04/28/2025 12:52 PM EDT) [facility] POCT Glucose 271(H) 74 - 99 mg/dL 04/28/2025 12:56 PM EDT [facility] Comment:Accuracy of a [...] Comment 04/28/2025 12:56 PM EDT [facility] Spinning Frame Changer ID Ailyn Finch 12:56 PM EDT [facility] Device ID [id number] 04/28/2025 12:56 PM EDT [facility] Specimen Type POC Capillary 04/28/2025 12:56 PM EDT [facility] Blood Capillary blood specimen / Unknown 04/28/2025 12:52 PM EDT 04/28/2025 12:56 PM EDT us Marjorie yMers MD LAB POINT OF CARE TE ST DOCKED DEVICE UNSOLICITED RESULTS Final Result Performing Organization Address City/[facility]/ZIP Co de Phone Number [facility] [address] [place] [address] * (ABNORMAL) POCT glucose meter (04/28/2025 11:39 [...] Comment 04/28/2025 11:44 AM EDT [facility] Spinning Frame Changer ID Ailyn Finch 11:44 AM EDT [facility] Device ID [id number] 04/28/2025 11:44 AM EDT [facility] Specimen Type POC Capillary 04/28/2025 11:44 AM EDT [facility] Blood Capillary blood specimen / Unknown 04/28/2025 11:39 AM EDT 04/28/2025 11:44 AM EDT us Marjorie Myers MD LAB POINT OF CARE TE ST DOCKED DEVICE UNSOLICITED RESULTS Final Result Performing Organization Address City/[facility]/ZIP Co de Phone Number [facility] [address] [place] [address] * Lavender Top (04/28/2025 8:13 AM EDT) Extra Hold for add-ons 04/28/2025 11:[address] [facility] Comment:Auto resulted. Blood Venous blood specimen / Unknown 04/28/2025 8:13 AM EDT 04/28/2025 8:19 AM EDT us Marjorie Myers MD LAB BLOOD ORDERABLES Final Resul t [facility] [address] [place] [address] * Light Green Top (04/28/2025 8:13 AM EDT) Extra Hold for add-ons 04/28/2025 11:[address] [facility] Comment:Auto resulted. Blood Venous blood specimen / Unknown 04/28/2025 8:13 AM EDT 04/28/2025 8:19 AM EDT us Marjorie Myers MD LAB BLOOD ORDERABLES Final Resul t Performing Organization Address City/[facility]/ZIP Co de Phone Number [facility] [address] [place] [address] * APTT (04/28/2025 8:13 AM EDT) aPTT 32 25 - 35 sec 04/28/2025 8:33 AM EDT [facility] Blood Venous blood specimen / Unknown Venipuncture / Unknown 04/28/2025 8:13 AM EDT 04/28/2025 8:18 AM EDT us Sy De La Fuente APRN, DNP LAB BLOOD ORDERABLES Fin al Result Performing Organization Address [facility]/ZIP Co de Phone Number [facility] [address] [place] [address] * (ABNORMAL) PT/INR (04/28/2025 8:13 AM EDT) Prothrombin Time 17.5(H) 12.0 - 14.3 sec 04/28/2025 8:[address] [facility] INR 1.4(H) 0.9 - 1.1 04/28/2025 8:[address] [facility] Blood Venous blood specimen / Unknown Venipuncture / Unknown 04/28/2025 8:13 AM EDT 04/28/2025 8:[address] [facility] - 04/28/2025 8:33 AM EDT OPTIMAL INR RANGES FOR PATIENT ON ORAL ANTICOAGULANT THERAPY Prevention of venous thromboembolism INR 2.0 to 3.0 In patients with heart disease: Atrial fibrillation INR 2.0 to 3.0 Valvular heart disease INR 2.0 to 3.0 Tissue heart valves INR 2.0 to 3.0 Mechanical prosthetic valves INR 2.5 to 3.5 Prevention of recurrent [place] INR 2.5 to 3.5 Sy De La Fuente APRN, DENISE LAB BLOOD ORDERABLES Fin al Result [facility] [address] [place] [address] * ECG Adult (04/28/2025 7:20 AM EDT) EKG DIAGNOSIS CLASS Abnormal MUSE ECG Ventricular Rate 90 BPM MUSE ECG Atrial Rate 90 BPM MUSE ECG PA Interval 206 ms MUSE ECG QRSD Interval 146 ms MUSE ECG QT Interval 450 ms MUSE ECG QTC Interval 550 ms MUSE ECG P [place] 69 degrees MUSE ECG R [place] -32 degrees MUSE ECG T Wave [place] 35 degrees MUSE ECG Diagnosis Baseline Artifact [...] ORDERABLES Final Re sult Performing Organization Address [facility] Co de Phone Number MUSE ECG * (ABNORMAL) POCT glucose meter (04/28/2025 7:17 AM EDT) POCT Glucose 199(H) 74 - 99 mg/dL 04/28/2025 7:21 AM EDT [facility] Comment:Accuracy of a glucos e result [...] 04/28/2025 7:21 AM EDT [facility] Spinning Frame Changer ID Ailyn Finch 7:21 AM EDT [facility] Device ID [id number] 04/28/2025 7:21 AM EDT [facility] Specimen Type POC Capillary 04/28/2025 7:21 AM EDT [facility] Blood Capillary blood specimen / Unknown 04/28/2025 7:17 AM EDT 04/28/2025 7:21 AM EDT us Greg Lee MD LAB POINT OF CARE TE ST DOCKED DEVICE UNSOLICITED RESULTS Final Result Performing Organization Address City/State/[facility] Co de Phone Number [facility] [address] [place] [address] * CT Foot Right w IV Contrast [...] Roderick Alcala MD on 04/28/2025 5:27 AM us Jessa Law MD IMG CT PROCEDURES Final [...] Kim Bai MD on 04/27/2025 11:40 PM Jessa Law MD IMG XR PROCEDURES Final Result * Type and screen (04/27/2025 10:16 PM EDT) ABO/Rh O Positive 04/27/2025 10:23 PM EDT [facility] Antibody Screen Negative 04/27/2025 10:23 PM EDT [facility] Specimen Expiration 04/30/2025 23:59 04/27/2025 10:23 PM EDT [facility] Blood Venous blood specimen / Unknown Venipuncture / Unknown 04/27/2025 10:16 PM EDT 04/27/2025 10:23 PM EDT Jessa Law MD LAB BLOOD BANK TEST ORDERABLES Final Result Performing Organization Address City/[facility]/ZIP Co de Phone Number BLOOD BANK [address] [place] [address] * Blood Culture (Aerobic/Anaerobet Set) (04/27/2025 10:16 PM EDT) Culture No growth at day 5 05/03/2025 12:01 AM EDT [facility] Blood Venous blood specimen / Unknown Venipuncture / Unknown 04/27/2025 10:16 PM EDT 04/27/2025 10:53 PM EDT us Jessa Law MD LAB MICROBIOLOGY - [facility] Final Result [facility] [address] [place] [address] * Blood Culture (Aerobic/Anaerobet Set) (04/27/2025 10:16 PM EDT) Culture No growth at day 5 05/03/2025 12:[address] [facility] Blood Venous blood specimen / Unknown Venipuncture / Unknown 04/27/2025 10:16 PM EDT 04/27/2025 10:53 PM EDT Jessa Law MD LAB MICROBIOLOGY - [facility] SANYA DOMINGUEZ Final Result [facility] [address] [place] [address] * (ABNORMAL) Blood gas, venous (04/27/2025 10:16 PM EDT) pH, Venous 7.47(H) 7.32 - 7.43 LAB HEMATOLOGY METHOD 04/27/2025 10:[address] [facility] pCO2, Venous 50 40 - 55 mmHg LAB HEMATOLOGY METHOD 04/27/2025 10:[address] [facility] pO2, Venous 30 25 - 40 mmHg LAB HEMATOLOGY METHOD 04/27/2025 10:[address] [facility] SO2, Measured, Venous 52(L) 65 - 80 % LAB HEMATOLOGY METHOD 04/27/2025 10:[address] [facility] Base Excess, Venous 11.6(H) -2.0 - 3.0 mmol/L LAB HEMATOLOGY METHOD 04/27/2025 10:[address] [facility] Bicarbonate, Calculated, Venous 37(H) 22 - 26 mmol/L LAB HEMATOLOGY METHOD 04/27/2025 10:[address] [facility] Hematocrit, Whole Blood 30.1(L) 40.0 - 51.0 % LAB HEMATOLOGY METHOD 04/27/2025 10:[address] [facility] Sodium, Whole Blood 136 136 - 145 mmol/L LAB HEMATOLOGY METHOD 04/27/2025 10:[address] [facility] Potassium, Whole Blood 2.8(L) 3.6 - 4.9 mmol/L LAB HEMATOLOGY METHOD 04/27/2025 10:[address] [facility] Chloride, Whole Blood 88(L) 97 - 107 mmol/L LAB HEMATOLOGY METHOD 04/27/2025 10:[address] [facility] Glucose, Whole Blood 131(H) 74 - 99 mg/dL LAB HEMATOLOGY METHOD 04/27/2025 10:[address] [facility] Lactate, Venous, Whole Blood 2.0 0.5 - 2.2 mmol/L LAB HEMATOLOGY METHOD 04/27/2025 10:[address] [facility] Ionized Calcium, Whole Blood 4.2(L) 4.6 - 5.1 mg/dL LAB HEMATOLOGY METHOD 04/27/2025 10:[address] [facility] Blood Venous blood specimen / Unknown Venipuncture / Unknown 04/27/2025 10:16 PM EDT 04/27/2025 10:20 PM EDT us Jessa Law MD LAB BLOOD ORDERABLES Final Resu lt Performing Organization Address City/[facility]/ZIP Co de Phone Number [facility] [address] [place] [address] * Creatine Kinase, Total, Plasma (04/27/2025 9:37 PM EDT) Creatine Kinase, Plasma 71 49 - 320 U/L 04/28/2025 8:[address] [facility] Blood Venous blood specimen / Unknown Venipuncture / Unknown 04/27/2025 9:37 PM EDT 04/27/2025 9:40 PM EDT us Sy De La Fuente CONCIERGE, DNP LAB BLOOD ORDERABLES Fin al Result Performing Organization Address City/[facility]/ZIP Co de Phone Number [facility] [address] [place] [address] * (ABNORMAL) Procalcitonin (04/27/2025 9:37 PM EDT) Procalcitonin, Plasma 0.11(H) <0.09 ng/mL 04/28/2025 8:[address] [facility] Blood Venous blood specimen / Unknown Venipuncture / Unknown 04/27/2025 9:37 PM EDT 04/27/2025 9:[address] [facility] - 04/28/2025 8:36 AM EDT [...] predict 28 day mortality risk. Please consult [email or web address]-tgp-[email or web address] for more information. Test performed at [facility]. us Sy De La Fuente APRN, DNP LAB BLOOD ORDERABLES Fin al Result Performing Organization Address City/[facility]/ZIP Co de Phone Number [facility] [address] [place] [address] * (ABNORMAL) Sed rate, automated (04/27/2025 9:37 PM EDT) Sedimentation Rate >111(H) <15 mm/hr 2024 11:[address] [facility] Blood Venous blood specimen / Unknown Venipuncture / Unknown 04/27/2025 9:37 PM EDT 04/27/2025 9:40 PM EDT us Jessa Law MD LAB BLOOD ORDERABLES Final Resu lt [facility] [address] [place] [address] * (ABNORMAL) Magnesium (04/27/2025 9:37 PM EDT) Magnesium, Plasma 1.2(L) 1.9 - 2.4 mg/dL 04/27/2025 10:[address] [facility] Blood Venous blood specimen / Unknown Venipuncture / Unknown 04/27/2025 9:37 PM EDT 04/27/2025 9:40 PM EDT us Jessa Law MD LAB BLOOD ORDERABLES Final Resu lt Performing Organization Address City/[facility]/ZIP Co de Phone Number [facility] [address] [place] [address] * Beta-Hydroxybutyric Acid (04/27/2025 9:37 PM EDT) Beta-Hydroxybut yric Acid, Plasma 0.23 <=0.27 mmol/L 04/27/2025 10:[address] [facility] Blood Venous blood specimen / Unknown Venipuncture / Unknown 04/27/2025 9:37 PM EDT 04/27/2025 9:40 PM EDT Jessa Law MD LAB BLOOD ORDERABLES Final Resu lt Performing Organization Address [facility] Co de Phone Number [facility] [address] [place] [address] * ED HIV 1/2 Antibody/Antigen Screen w/Reflex to HIV 1/2 Differentiation (04/27/2025 9:37 PM EDT) HIV 1 & 2 Antibody/Antigen Screen Non Reactive Non Reactive 04/27/2025 10:[address] [facility] Comment:Screening for HIV 1 & 2 antibodies, and P24 antigen is NONREACTIVE. No confirmatory testing is required. Blood Venous blood specimen / Unknown Venipuncture / Unknown 04/27/2025 9:37 PM EDT 04/27/2025 10:00 PM EDT Madhu Ritchie MD LAB BLOOD ORDERABLES Final Res ult Performing Organization Address City/[facility]/ZIP Co de Phone Number [facility] [address] [place] [address] * Hepatitis C Antibody - ED (04/27/2025 9:37 PM EDT) Hepatitis C Antibody Negative Negative 04/27/2025 10:[address] [facility] Blood Venous blood specimen / Unknown Venipuncture / Unknown 04/27/2025 9:37 PM EDT 04/27/2025 10:00 PM EDT Madhu Ritchie MD LAB BLOOD ORDERABLES Final Res ult Performing Organization Address [facility]/ZIP Co de Phone Number [facility] [address] [place] [address] * (ABNORMAL) C-reactive protein (04/27/2025 9:37 PM EDT) Pathologist [facility] CRP, Plasma 82.6(H) <=8.0 mg/L 04/27/2025 10:[address] [facility] Blood Venous blood specimen / Unknown Venipuncture / Unknown 04/27/2025 9:37 PM EDT 04/27/2025 9:[address] [facility] - 04/27/2025 10:03 PM EDT This CRP test is appropriate for assessment of infection, systemic inflammation and/or tissue injury. To assess cardiovascular disease risk order high sensitivity CRP (CRPH). Madhu Ritchie MD LAB BLOOD ORDERABLES Final Res ult Performing Organization Address [facility]/ZIP Co de Phone Number [facility] [address] [place] [address] * (ABNORMAL) CBC w/diff (04/27/2025 9:37 PM EDT) WBC Count 12.00(H) 3.70 - 10.30 10*3/uL LAB HEMATOLOGY METHOD 04/27/2025 9:[address] [facility] RBC Count 4.48(L) 4.60 - 6.10 10*6/uL LAB HEMATOLOGY METHOD 04/27/2025 9:[address] [facility] HGB 10.4(L) 13.7 - 17.5 g/dL LAB HEMATOLOGY METHOD 04/27/2025 9:[address] [facility] HCT 33.3(L) 40.0 - 51.0 % LAB HEMATOLOGY METHOD 04/27/2025 9:[address] [facility] Platelet Count 282 155 - 369 10*3/uL LAB HEMATOLOGY METHOD 04/27/2025 9:[address] [facility] MCV 74(L) 79 - 98 fL LAB HEMATOLOGY METHOD 04/27/2025 9:[address] [facility] MCH 23.2(L) 26.0 - 32.0 pg LAB HEMATOLOGY METHOD 04/27/2025 9:[address] [facility] MCHC 31.2 30.7 - 35.5 g/dL LAB HEMATOLOGY METHOD 04/27/2025 9:[address] [facility] RDW 19.4(H) 11.5 - 14.5 % LAB HEMATOLOGY METHOD 04/27/2025 9:[address] [facility] MPV 8.3(L) 8.8 - 12.5 fL LAB HEMATOLOGY METHOD 04/27/2025 9:[address] [facility] nRBC 0.0 <=0.0 per 100 WBCs LAB HEMATOLOGY METHOD 04/27/2025 9:[address] [facility] Differential Type Automated LAB HEMATOLOGY METHOD 04/27/2025 9:[address] [facility] Neutrophils % 82 % LAB HEMATOLOGY METHOD 04/27/2025 9:[address] [facility] Lymphocytes % 9 % LAB HEMATOLOGY METHOD 04/27/2025 9:[address] [facility] Monocytes % 7 % LAB HEMATOLOGY METHOD 04/27/2025 9:[address] [facility] Eosinophils % 2 % LAB HEMATOLOGY METHOD 04/27/2025 9:[address] [facility] Basophils % 0 % LAB HEMATOLOGY METHOD 04/27/2025 9:[address] [facility] Immature Granulocytes % 0 % LAB HEMATOLOGY METHOD 04/27/2025 9:[address] [facility] Neutrophils Absolute 9.73(H) 1.60 - 6.10 10*3/uL LAB HEMATOLOGY METHOD 04/27/2025 9:[address] [facility] Lymphocytes Absolute 1.11(L) 1.20 - 3.90 10*3/uL LAB HEMATOLOGY METHOD 04/27/2025 9:[address] [facility] Monocytes Absolute 0.80 0.30 - 0.90 10*3/uL LAB HEMATOLOGY METHOD 04/27/2025 9:[address] [facility] Eosinophils Absolute 0.29 0.00 - 0.50 10*3/uL LAB HEMATOLOGY METHOD 04/27/2025 9:[address] [facility] Basophils Absolute 0.03 0.00 - 0.10 10*3/uL LAB HEMATOLOGY METHOD 04/27/2025 9:[address] [facility] Immature Granulocytes Absolute 0.04 0.00 - 0.06 10*3/uL LAB HEMATOLOGY METHOD 04/27/2025 9:[address] [facility] Blood Venous blood specimen / Unknown Venipuncture / Unknown 04/27/2025 9:37 PM EDT 04/27/2025 9:[address] [facility] - 04/27/2025 9:43 PM EDT Therapeutic decision making should be based on absolute values, rather than percentages. us Madhu Ritchie MD LAB BLOOD ORDERABLES Final Res ult [facility] [address] [place] [address] * (ABNORMAL) BMP (04/27/2025 9:37 PM EDT) Glucose, Plasma 135(H) 74 - 99 mg/dL 04/27/2025 10:[address] [facility] BUN, Plasma 8 7 - 21 mg/dL 04/27/2025 10:[address] [facility] Creatinine, Plasma 0.84 0.70 - 1.20 mg/dL 04/27/2025 10:[address] [facility] BUN/Creatinine Ratio 10 04/27/2025 10:[address] [facility] Sodium, Plasma 135(L) 136 - 145 mmol/L 04/27/2025 10:[address] [facility] Potassium, Plasma 3.3(L) 3.6 - 4.9 mmol/L 04/27/2025 10:[address] [facility] Chloride, Plasma 90(L) 97 - 107 mmol/L 04/27/2025 10:[address] [facility] CO2, Plasma 29 22 - 29 mmol/L 04/27/2025 10:[address] [facility] Anion Gap 16 6 - 16 mmol/L 04/27/2025 10:[address] [facility] Total Calcium, Plasma 9.0 8.9 - 10.2 mg/dL 04/27/2025 10:[address] [facility] eGFRcr 108.2 mL/min/1.7 3m*2 04/27/2025 10:[address] [facility] Comment:Reported eGFRcr in m L/min/1.73m2 is based the CKD-EPI 2020 equation that does not use a race coefficient. Blood Venous blood specimen / Unknown Venipuncture / Unknown 04/27/2025 9:37 PM EDT 04/27/2025 9:40 PM EDT us Madhu Ritchie MD LAB BLOOD ORDERABLES Final Res ult [facility] [address] [place] [address] documented in this encounter Visit Diagnoses Diagnosis Other chronic osteomyelitis of right foot ([facility]) Diabetic foot ulcer with osteomyelitis Type [...] sleeve procedure Type 2 diabetes Morbid obesity (CMS/HCC) Morbid obesity Diabetic foot ulcer with osteomyelitis [...] 0701, Until Thu05/09/25 at 0821, Routine, Mild Plus Pain with CPOT DVPRS FLACC PAINAD NPASS NRS [place] Faces score of 1 or greater OR NIPS score 2 or greater, Moderate Severe Pain with CPOT score of 3 or greater OR FLACC PAINAD NPASS NRS [place] Faces score of 4 or greater OR DVPRS NIPS score of 5 or greater, headaches, fever, severe pain, fever > 100.4 Given 05/02/2025 8:58 PM EDT 1,000 mg Given 05/01/2025 8:25 PM EDT 1,000 mg Given 04/30/2025 3:28 AM EDT 1,000 mg acetaminophen (Tylenol) tablet 1,000 mg 1,000 mg, Oral, Every 6 hours PRN, Starting on Thu05/09/25 at 0820, Until Michaelle 05/18/25 at 1348, Routine, Mild Plus Pain with CPOT DVPRS FLACC PAINAD NPASS NRS [place] Faces score of 1 or greater OR NIPS score 2 or greater, headaches, fever, fever > 100.4 Given 05/17/2025 [...] Thu05/06/25 at 1245, Until Discontinued, Routine Given 05/16/2025 [...] PRN, Starting on Thu05/04/25 at 1608, Until Michaelle 05/18/25 at 1348, Routine, cough Given 05/04/2025 4:25 [...] Units, Subcutaneous, 2 times nightly (2099 & 030), First dose on Thu05/10/25 at 2100, Until [...] PRN, Starting on 05/07/25 at 1605, Until Thu05/08/25 at 0920, Routine, overnight snacking Given 05/07/2025 [...] daily, First dose (after last modification) on 05/01/25 at 1215, Until Discontinued, Routine Given 05/02/2025 9:08 AM EDT 35 Units Right Upper Arm (Pawel k) Given 05/01/2025 8:29 PM EDT 35 Units Le ft Upper Arm (Back) Given 05/01/2025 1:13 PM EDT 35 Units Le ft Lower Abdomen insulin NPH (Isophane) (HumuLIN N,NovoLIN N) injection 35 Units 35 Units, Subcutaneous, Daily, First dose (after last modification) on 05/08/25 at 1230, Until Discontinued, Routine Given 05/08/2025 12:50 PM EDT 35 Units Left Upper Arm (Back ) insulin NPH (Isophane) (HumuLIN N,NovoLIN N) injection 42 Units 42 Units, Subcutaneous, 2 times daily, First dose (after last modification) on Tu05/02/25 at 2100, Until Discontinued, Routine Given 05/03/2025 [...] dose, On Thu04/30/25 at 0730, Routine New 04/30/2025 8:09 AM EDT 4 g 2 [...] 220 mL/hr, Administer over 30 Minutes, STAT New Bag 04/28/2025 2:47 AM EDT 1 g 220 [...] PRN, Starting on Thu04/28/25 at 0702, Until Thu04/29/25 at 0754, Routine, Moderate Severe Pain with CPOT score of 3 or greater OR FLACC PAINAD NPASS NRS [place] Faces score of 4 or greater OR DVPRS NIPS score of 5 or greater, severe pain Given 04/29/2025 4:35 AM EDT 5 mg Given 04/28/2025 10:31 PM EDT 5 mg Given 04/28/2025 3:00 PM EDT 5 mg oxyCODONE (Roxicodone) immediate release tablet 5 mg 5 mg, Oral, Every 4 hours PRN, Starting on 04/29/25 at 0754, Until Michaelle 05/18/25 at 1348, Routine, Moderate Severe Pain with CPOT score of 3 or greater OR FLACC PAINAD NPASS NRS [place] Faces score of 4 or greater OR DVPRS NIPS score of 5 or greater, severe pain Given 05/18/2025 9:07 AM EST [...] 20 mEq, Oral, Once, 1 dose, On 05/10/25 at 1015, Routine Given 05/10/2025 12:11 PM [...] 40 mEq, Oral, Once, 1 dose, On [facility] 05/10/25 at 0900, Routine Given 05/10/2025 8:38 AM EDT 40 mEq potassium chloride CR (Klor-Con) ER tablet 40 mEq 40 mEq, Oral, Every 2 hours, 2 doses, First dose on Thu05/11/25 at 0830, Last dose on Thu05/11/25 at [...] 40 mEq, Oral, Once, 1 dose, On Thu05/13/25 at 1015, Routine Given 05/13/2025 10:37 AM EDT 40 mEq potassium chloride CR (Klor-Con) ER tablet 40 mEq 40 mEq, Oral, Every 2 hours, 2 doses, First dose on Thu05/15/25 at 1015, Last dose on Thu05/15/25 at [...] 0.25 mg Left Lower Abdomen sodium chloride ([place] [employer]) 0.65 % nasal spray 1 spray 1 spray, Each Nostril, As needed, Starting on Thu05/06/25 at 1208, Until Thu05/09/25 at 0821, Routine, congestion Given 05/07/2025 3:52 AM EDT 1 spray sodium chloride ([place]) 0.65 % nasal spray 1 spray 1 [...] Until Thu05/18/25 at 1348, Routine, line care sodium chloride [...] 0900 (Given - Provider: Deepthi Herman RN) 0907 (Given - Provider: Kylee Gonzalez, LOLA) bumetanide (Bumex) tablet 4 mg 4 mg, Oral, 3 times daily, First dose on Thu04/28/25 at 0900, Until Discontinued, Routine 0856 (Given - Provider: Deepthi Herman RN)1626 (Given - Provider: Deepthi Herman, LOLA)1999 (Given - Provider: Ivan Slaughter RN) 09 (Given - Provider: Deepthi Herman, RN)1700 (Given - Provider: Deepthi Herman, LOLA)2003 (Given - Provider: Ivan Slaughter RN) 09 (Given - Provider: Kylee Gonzalez, LOLA) cariprazine (Vraylar) capsule 3 mg 3 mg, Oral, Daily, First dose on Thu04/28/25 at 0900, Until Discontinued 0857 (Given - Provider: Deepthi Herman RN) 0900 (Given - Provider: Deepthi Herman RN) 0907 (Given - Provider: Kylee Gonzalez RN) dilTIAZem [...] Michaelle 05/11/25 at 0900, Until Discontinued, Routine 0901 (Given - Provider: Deepthi Herman RN) finasteride [...] - Provider: Deepthi Herman RN - Reason: Patient/Family/Repre sentative Refused) 1106 (Not Given - Provider: Kylee Gonzalez [...] 09 (Given - Provider: Kylee Gonzalez RN) insulin [...] Slaughter RN - Reason: Order parameters not met)2124 (Not Given - Provider: Ivan Slaughter RN - Reason: Order parameters not met) 0230 (Not Given - Provider: Ivan Slaughter RN - Reason: Order parameters not met)2003 (Not Given - Provider: Ivan Slaughter RN - Reason: Order parameters not met) 0252 (Not Given - Provider: Ivan Slaughter RN [...] at 1800 1732 (Given - Provider: Deepthi Herman, LOLA) 1733 (Given - Provider: Deepthi Herman RN) insulin regular (HumuLIN R U-500) 500 UNIT/ML CONCENTRATED injection 250 Units(Linked Group 1) 250 Units, Subcutaneous, Daily with dinner, Administer using a U-500 syringe. (GREEN [employer] SYRINGE). If patient is NPO, contact endocrine prior to administering dose. Note High CONCENTRATION: 500 units/mL, First dose (after last reorder) on Thu05/14/25 at 1800 1733 (Given - Provider: Deepthi Herman, LOLA) 1732 (Given - Provider: Deepthi Herman RN) [...] Provider: Kylee Gonzalez RN - Comment: [facility]) insulin regular (HumuLIN R U-500) 500 UNIT/ML [...] - Provider: Kylee Gonzalez RN - Comment: [facility]) insulin regular (HumuLIN R U-500) 500 UNIT/ML [...] Until Discontinued 0855 (Given - Provider: Deepthi Herman, LOLA) 0901 (Given - Provider: Deepthi Herman RN) 0907 (Given - Provider: Kylee Gonzalez RN - Comment: [facility]) perflutren lipid microspheres (Definity) injection 16.3 [...] - Provider: Deepthi Herman RN - Reason: Patient/Family/Repre sentative Refused) 1107 (Not Given - Provider: Kylee Gonzalez RN - Reason: Patient/Family/Represe ntative Refused) rivaroxaban (Xarelto) tablet 20 mg 20 mg, [...] 09 (Given - Provider: Kylee Gonzalez RN) PRN Medication Order 05/16/2025 05/17/2025 05/18/2025 acetaminophen (Tylenol) tablet 1,000 mg 1,000 mg, Oral, Every 6 hours PRN, Starting on Thu05/09/25 at 0820, Until Thu05/18/25 at 1348, Routine, Mild Plus Pain with CPOT DVPRS FLACC PAINAD NPASS NRS [place] Faces score of 1 or greater OR NIPS score 2 or greater, headaches, fever, fever > 100.4 0856 (Given - Provider: Deepthi Herman RN)1626 (Given - Provider: Deepthi Herman RN) 09 (Given - Provider: Deepthi Herman RN) albuterol 108 (90 Base) MCG/ACT inhaler 2 puff 2 puff, Inhalation, Every 4 hours PRN, Starting on Thu05/09/25 at 0820, Until Thu05/18/25 at 1348, Routine, shortness of breath dextrose [...] 0754, Until Michaelle 05/18/25 at 1348, Routine, Moderate Severe Pain with CPOT score of 3 or greater OR FLACC PAINAD NPASS NRS [place] Faces score of 4 or greater OR DVPRS NIPS score of 5 or greater, severe pain 0855 (Given - Provider: Deepthi Herman RN)1626 (Given - Provider: Deepthi Herman RN)2224 (Given - Provider: Ivan Slaughter RN) 0902 (Given - Provider: Deepthi eHrman, LOLA)1424 (Given - Provider: Deepthi Herman, LOLA)2228 (Given - Provider: Ivan Slaughter RN) 0907 (Given - Provider: Kylee Gonzalez RN) sodium chloride ([place] [employer]) 0.65 % nasal spray 1 spray 1 [...] documented as of this encounter Care Teams Patient Educator Relationship Specialty Start Date End Date Malcolm Hayward APRN [address] [place] [address] [phone] PCP - General 09/21/23 documented as of this encounter
--- OUTSIDE RECORDS SUMMARY | 2025-05-01 06:28 | XMS_ITS | Encounter Summary ---
Author Organization Healthcare Address [address] [id number] Care Team Providers Care Glue Line Operator Name Role Phone MainorMalcolm Rodrick DIANA Primary Care Provider [phone] Reason for Visit * Auth/Cert (Routine) Specialty Diagnoses / Procedures Referred By Anish t Referred To Contact Diagnoses Diabetic foot ulcer with osteomyelitis Greg Lee MD [address] [place] [phone] Phone: tel: fax: [facility] Emergency Department [address] [place] [phone] Phone: tel: Referral ID Status Reason Start Date Expiration Date Visits Re quested Visits Authorized [id number] 1 1 Encounter Details Date Type Department Care Team (Late st Contact Info) Description 05/01/2025 7:28 AM EDT Anesthesia Event [facility] OPERATING ROOM [address] [place] [phone] Gilberto Rivera MD [address] [place] [phone] Hermilo Qiu MD [address] [place] [address] Anesthesia Record Procedure Summary Procedure Name Responsible [...] in the past 12 m [facility], were you homeless or living in a [place] health care facility (including now)? No 04/28/2025 [facility] Utilities Answer Date Recorded In the [...] as of this encounter Functional Status * Question Answer Date of Assessment Author Precautions Fall risk;[facility] surveillance 05/01/2025 11:00 AM EDT Rocío Crandall RN * Calculated C-SSRS Risk Score (Lifetime/Recent) Answer Date of Assessment Author No Risk Indicated 05/01/2025 11:00 AM EDT Rocío Latham RN * Question Answer Date of Assessment Author 1. Wish to be (Past 1 Month) No 05/01/2025 11:00 AM EDT Roopa Crandall RN 2. Non-Specific Active Suicidal Thoughts (Past 1 Month) No 05/01/2025 11:00 AM LOGANT Roopa Crandall RN 6. Suicidal Behavior (Lifetime) No 05/01/2025 11:00 AM LOGANT Roopa Crandall RN documented as of this encounter Mental Status * Question Answer Entry Date Author Precautions Fall risk;[facility] surveillance 05/01/2025 11:00 AM LOGANT Rocío Crandall RN documented in this encounter Miscellaneous Notes * Anesthesia Postprocedure [...] monitoring: continuous pulse ox, heart rate and cafeteria monitor Block type: adductor canal and popliteal Laterality: [...] portions of the procedure(s) and immediately available [facility] the entire duration. See resident note for details. * Anesthesia Preprocedure Evaluation - Gilberto Rivera MD - 05/01/2025 7:04 AM EDT Anesthesiologist: Gilberto Rivera MD MANAGER DIESEL: Alen Mena CRNA, [facility] Patient: Gonzalo Russell HPI Gonzalo Russell is a 49 y.o. male with body mass index is 76.9 kg/m??. who presents with Diabetic foot ulcer, now for AMPUTATION,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 4th (Right) Procedure Information Date/Time: 05/01/25729 Procedure: AMPUTATION,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 4th (Right: Toes) Location: [facility] OR / [place] OR Surgeons: Mary Vicente MD Past Medical [...] (NEURONTIN) 600 mg, 3 times daily HYDROcodone-acetaminophen ([place]) 10-325 MG tablet 1 tablet, Every 6 hours PRN Insulin Pen Needle (Pen [place]) 31G X 5 MM [facility] USE TO INJECT INSULIN 3 TIMES PER [...] ABG No results found for: PHART , NYN6NWR , PO2ART , SO2ART , BEART , UDT1TZE , HCTART , SODIUMART , POTASSIUMART , POCTCL , POCGLU , IONCALART , LACTATE Lab Results Component Value Date HCTSYR 30.1 (L) 04/27/2025 KSYR 2.8 (L) 04/27/2025 CLSYR 88 (L) 04/27/2025 GLUSYR 131 (H) 04/27/2025 CAION 4.2 (L) 04/27/2025 ECHO No echocardiogram results found for the past 12 months PFTs No results found for: IHL9BRU , WNR7DXIO , TVO9LUU , FVCPRED BP Readings from Last 5 Encounters: 05/01/25 121/76 01/10/25 (!) 156/90 12/17/24 128/65 12/12/24 118/71 09/13/24 (!) 137/90 Physical Exam Airway Mallampati: II Cardiovascular Rhythm: regular Rate: normal Dental Pulmonary (+) decreased breath sounds Neurological Skin Musculoskeletal Extremities Anesthesia Plan ASA 4 Plan was reviewed with: FRANCIS Anesthesia technique(s) discussed with the patient/family: general, [...] Description 08/03/2025 2:00 PM EST Office Visit [facility] [address] [facility] 5th Floor [address], [address] [place] [phone] Mary Vicente MD [address] [place] [address] documented as of this encounter [...] monitoring: continuous pulse ox, heart rate and cafeteria monitor Block type: adductor canal and popliteal Laterality: [...] 0.5% ropivacaine via right popliteal. No complications. Holly Spicer MD ANESTHESIA ORDERABLES Final R [...] needed, Starting on Thu05/01/25 at 0811, Until Thu05/01/25 at 1110, Routine, Anesthesia Intraprocedure [...] documented as of this encounter Care Teams Glue Line Operator Relationship Specialty Start Date End Date Malcolm Hayward APRN [address] [place] [address] [place] [address] PCP - General 09/21/23 documented as of this encounter
--- OUTSIDE RECORDS SUMMARY | 2025-05-01 06:30 | XMS_ITS | Encounter Summary ---
Author Organization Healthcare Address [address] [id number] Care Team Providers Care Observer Electrical Prospecting Name Role Phone DontaemyrtleMalcolm camejo Rodrick DIANA Primary Care Provider [phone] Reason for Visit * Reason Comments Wound Check * Auth/Cert (Routine) Specialty Diagnoses / Procedures Referred By Anish t Referred To Contact Diagnoses Diabetic foot ulcer with osteomyelitis Greg Lee MD [address] [place] [address] Phone: tel: fax: [facility] [address] [place] [address] Phone: tel: Referral ID Status Reason Start Date Expiration Date Visits Re quested Visits Authorized [id number] 1 1 Encounter Details Date Type Department Care Team (Late st Contact Info) Description 05/01/2025 7:30 AM EDT - 05/01/2025 8:50 AM EDT Surgery [facility] OPERATING ROOM [address] [place] [address] Mary Vicente MD [address] [facility] [address] [place] [address] AMPUTATION,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 4th Surgery Details Date/Time Status Location OR Service Patient Class Case Class Case Type Trauma Case? 05/01/2025 7:30 AM Posted [facility] OR 02 Vascular Surgery Inpatient T - Timed: to be done within 24 hrs Panel 1 Procedure LRB Anes Op Region Wound Class Comments AMPUTATION,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 4th Right Choice Toes Surgeon Surgeon Role Service Panel Paula Martinez MD Resident - Assisting 1 Mary Vicente MD Primary Vascular Surgery 1 Mary Vicente MD Primary Vascular Surgery 1 documented in this encounter Social History Tobacco [...] in a custodial (including now)? No 04/28/2025 [facility] Utilities Answer Date Recorded In the [...] Sign Reading Time Taken Comments Blood Pressure 121/76 05/01/2025 3:30 AM EDT Pulse 58 05/01/2025 3:30 AM EDT Temperature 36.8 C (98.3 F) 05/01/2025 3:30 AM EDT Respiratory Rate 22 04/30/2025 8:20 PM EDT Oxygen Saturation 96% 05/01/2025 3:3 0 AM EDT Inhaled Oxygen Concentration - - Weight 257 kg (567 lb 0.4 oz) 05/01/2025 5:24 AM EDT patient off floor to OR Height 182.9 cm (6') 04/27/2025 10:46 PM EDT Body Mass Index 74.6 04/27/2025 10:46 PM EDT documented in this encounter Functional Status * Question Answer Date of Assessment Author Precautions Environmental surveillance 04/30/2025 10: 00 PM EDT Rodrick Oconnell RN * Calculated C-SSRS Risk Score (Lifetime/Recent) Answer Date of Assessment Author No Risk Indicated 05/01/2025 6:45 AM EDT Juliana Marx RN * Question Answer Date of Assessment Author 1. Wish to be (Past 1 Month) No 6:45 AM EDT Juliana Marx RN 2. Non-Specific Active Suici jonny Thoughts (Past 1 Month) No 05/01/2025 6:45 AM EDT Marzena Marx RN 6. Suicidal Behavior (Lifetime) No 6:45 AM EDT Juliana Marx RN documented as of this encounter Mental Status * Question Answer Entry Date Author Precautions Environmental surveillance 04/30/2025 10: 00 PM EDT Rodrick Oconnell RN documented in this encounter Medications at [...] 5 tablet 05/17/2025 Insulin Pen Needle (Pen [place]) 31G X 5 MM misc USE TO [...] capsule by mouth daily. 05/10/2018 HYDROcodone-acetami nophen (Matewan) 10-325 MG tablet Take 1 tablet by [...] of Care Goal: Plan of Care Review 05/18/20251130 by Kylee Gonzalez RN Outcome: Ongoing, Progressing Flowsheets Taken 05/18/20251130 by Kylee Gonzalez RN Progress: improving Taken [...] by Kylee Gonzalez RN Outcome: Ongoing, Progressing 05/18/20251129 by Kylee Gonzalez RN Outcome: Ongoing, Progressing [...] Optimal Coping 05/18/2025 1131 by Kylee Gonzalez, LOLA Outcome: Ongoing, Progressing 05/18/2025 1130 by Kylee Gonzalez RN Outcome: Ongoing, Progressing Intervention: Support Wellbeing and Self-Management Success Flowsheets Taken 05/17/20252152 by Ivan Slaughter, LOLA Supportive Measures: active listening utilized self-care encouraged Taken 05/16/20251948 by Ivan Sluaghter RN Family/Support System Care: self-care encouraged Goal: [...] Symptom Control 05/18/2025 1131 by Kylee Gonzalez, LOLA Outcome: [...] by Kylee Gonzalez, RN Outcome: Ongoing, Progressing Intervention: Prevent or Manage Pain Flowsheets Taken 05/18/2025 1131 by Kylee Gonzalez RN Sleep/Rest Enhancement: consistent schedule promoted awakenings minimized family presence promoted regular sleep/rest pattern promoted natural light exposure provided Taken 05/17/2025 222 by Ivan Slaughter RNspeech lang path Interventions: medication (see MAR) Goal: Optimal Wound [...] Prevent or Manage Pain Flowsheets Taken 05/18/2025 113 by Kylee Gonzalez RN Sleep/Rest Enhancement: consistent [...] Ongoing, Progressing Intervention: Promote Activity and Functional Duarte Flowsheets Taken 05/18/2025 1131 by Kylee Gonzalez RN Activity Assistance Provided: assistance, 2 people Taken 05/16/20251948 by Ivan Slaughter RN Self-Care [...] DO PCP name and Address: Malcolm Hayward, IN SHOP SERVICE TECHNICIAN [address] [facility] Emergency Department [id number] Brief History of Present Illness 49 M [...] extremity. He was accepted for discharge to [facility]. Urinary Retention and Recurrent UTI He [...] He was medically stable for discharge [facility], with recommendations for close follow-up with [...] HYDROcodone-acetaminophen 10-325 MG tablet Commonly known as: Matewan Take 1 tablet by mouth every 6 [...] the skin 1 time per week. [place] 31G X 5 MM misc USE TO [...] Your Medications These medications were sent to [facility] [place] [address] [address] gabapentin 600 MG tablet HYDROcodone-acetaminophen 10-325 MG tablet insulin regular 100 UNIT/ML injection vial insulin regular 500 UNIT/ML CONCENTRATED injection vial Information about where to get these medications is not yet available Ask your nurse or doctor about these medications ferrous sulfate 324 MG tablet delayed-release Discharge Diagnosis Medical Problems Active and Resolved Hospital Problems Hospital Morbid obesity ([facility]) Hypertension Type 2 diabetes Overview Signed 04/14/2022 [...] 05/18/2025 9:30 AM AMBULANCE ADULT JUDITH CASANOVA [facility] 05/30/2025 2:40 PM Sheila Marcano PA [facility] 06/14/2025 1:40 PM Divine Archer APRN [facility] 06/22/2025 1:40 PM Mary Vicente MD [facility] Pertinent Physical Exam At Time of [...] Note Gonzalo Smalls 49 y.o. male CSN: [id number] Admission: 04/27/2025 9:29 PM Primary Problem: Diabetic foot ulcer Primary Student Support Advisor: Primary Caregiver: Self Assistance Available at Discharge: Availability of Care Givers (#Hours): 24 hours Housing Circumstances-Z Codes: Housing Circumstances (select all that apply): Low Income (101-300% Federal Poverty Guidlines) - Z596 Discharge Facility/Level of Care Needs: Discharge Facility/Level of Care Needs: 62-Rehab facilty ([place]) Patient's Choice of Community Agency(s): Patient's Choice of Community Agency(s): [facility] Patient/Family Anticipated Services at Transition: Patient/Family [...] Recieved By: Gonzalo Smalls- the patient Follow-up: [facility] [address] [facility] 5th Floor [address] [facility] [address] Primary care provider (PCP) Malcolm Hayward, IN SHOP SERVICE TECHNICIAN [address] [facility] [place] [address] Discharge Transportation: Transportation Anticipated: medical transport Transportation [...] Araceli in admission who confirmed pt's acceptance #[phone]. Pt updated and in agreement with d/c plan. Team and bedside RN updated. Bedside RN to call report to #[phone]. Araceli has access to [employer] and will get d/c s [facility] [address]. Script for controlled medication to be sent to [facility] [place]. Ambulance to transport the pt is [...] Mobility Bed Mobility Exam: Scooting/Bridging Level of Duarte: Contact guard Physical/Nonphysical Assist: Verbal Cues, Minimal cues Assistive Device: Overhead trapeze Bed Mobility Exam: Supine to Sit Level of Duarte: Minimum assist (75% patient's effort) Physical/Nonphysical Assist: HOB elevated, Verbal Cues, Minimal cues Assistive Device: Overhead trapeze Bed Mobility Exam: Sit to Supine Level of Duarte: Stand-by assist Physical/Nonphysical Assist: Verbal Cues, Minimal cues Assistive Device: Overhead trapeze Transfers Transfer Exam: Sit to stand Level of Duarte: Maximum assist (25% patient's effort) Physical/Nonphysical Assist: Verbal Cues, Nonverbal cues (demo/gestures), Additional assist utilized for safety, Set-up required, Minimal cues Assistive Device: Walker, rolling (bariatric) Transfer Exam: Stand to Sit Level of Duarte: Maximum assist (25% patient's effort) Physical/Nonphysical Assist: [...] has access to 24/7 assistance at discharge. PRIOR LEVEL OF FUNCTION Receives help from Spouse Level of Mobility Mobility Duarte Independent gait with device History of Falls [...] go, I'm just nervous. Visitors Present No Draftsperson (if applicable) Draftsperson: Not Applicable OBJECTIVE PAIN Pt was without c/o pain at the beginning of this session and throughout the PT treatment. Prior to PARK WORKER's departure: * rest was provided * patient [...] by this therapist: BED MOBILITY Level of Duarte Physical/Non- physical Assist Adaptive Equipment Utilized Rolling/ Turning Contact guard Verbal Cues, Set-up required, Minimal cues Bed rails, Other (ACQUISITION MARKETING COORDINATOR) Scooting/ Bridging Contact guard Verbal Cues, Minimal [...] breaks between standing trials. TRANSFERS Level of Duarte Physical/Non- physical Assist Adaptive Equipment Utilized Sit [...] placement, sequencing, weight shifting, appropriate use of ACQUISITION MARKETING COORDINATOR, and maintaining NWB on RLE. Tactile cues provided to assist in sequencing and weight shifting. AMBULATION Level of Duarte Distance Adaptive Equipment Utilized Ambulation N/A N/A N/A Comments Unable to side step or progress to forward hop step at bariatric RW level due to inabilityto maintain prolonged standing position while maintaining NWB in RLE. BALANCE Postural Appearance Posture: Within Functional Limits, Forward head Level of Duarte Balance Support Activities Static Sit Standby assist [...] Abduction * Ankle pumps x1-2 sec holds PARK WORKER provided minimal verbal and tactile cueing to [...] overall. Standardized Assessments Standardized Assessments Standardized Assessments: [facility] 6-Clicks Mobility Assessment [facility] 6-Clicks Mobility Assessment Difficulty patient has turning [...] climbing 3-5 steps with a railing?: Unable [facility] 6-Clicks Mobility Assessment Total : 11 PATIENT / FAMILY EDUCATION Patient was educated regarding the PT POC and recommendations regarding discharge planning, as wellas progressively increased time spent out of bed/up to chair, and continued mobilization / ambulation with nursing staff as tolerated to promote increased activity tolerance and Endurance. PARK WORKER providing verbal cues/demonstration for pursed-lip breathing technique to promote improved ventilation, decreased respiratory rate and energy conservation with activity. PARK WORKER stressed to patient the importance of having [...] be IND with HEP and discharge recommendations. 10/17/25 2 weeks Goal ongoing PT Goal 2: [...] has been following with urology outpatient at [facility]. They have postulated this to be [...] Obesity-complicates care * Care Plan - Deepthi Herman, RN - 05/17/2025 10:42 AM EST Problem: Skin Injury Risk Increased Goal: Skin Health and Integrity Outcome: Ongoing, Progressing Problem: Adult Inpatient Plan of Care Goal: Plan of Care Review Outcome: Ongoing, Progressing Flowsheets Taken 05/17/2025 1040 by Deepthi Herman, RN Progress: improving Taken 05/16/2025 1949 by Ivan Slaughter RN Plan of Care [...] Progressing Intervention: Optimize Mobility Flowsheets Taken 05/17/2025 08 by Deepthi Herman RN Activity Management: activity [...] Optimize Psychosocial Wellbeing Flowsheets Taken 05/16/20251948 by Raju, Ivan, RN Supportive Measures: active listening utilized Taken [...] Ongoing, Progressing Intervention: Promote Activity and Functional Duarte Flowsheets Taken 05/16/20251999 by Iavn Slaughter RN Activity Assistance Provided: assistance, 1 person Taken 05/16/2025 194 by Ivan Slaughter RN [...] 560 units -05/12: 233-315 TDD 560 units -11/01: 217-321 TDD 582 units -05/14: 194-320, TDD [...] mellitus - type 2 -Home medications: CGM: [employer] G7 Insulin regimen: U500 insulin: prescription for [...] -Diabetes education: completed 05/10 -Follow-up plan: home emergency management program specialist - Dr Anette Kendall -Tentative discharge recommendations: -pt will need close monitoring by rehab facility provider as changes in diet and activity level maylead to changes in glycemic patterns and insulin requirement NOTE: -patient reports that once the new year hits, he worries about the cost of U500 insulin --> discussed cost through [employer] - should be able to get vials of U500 at $35 per vial. Also discussed contacting [employer] directly for the financial assistance program. -hopefully [...] team via secure chat or page us [phone] during -7p, Thursday-Thursday. For after hours please [...] Review Outcome: Ongoing, Progressing Flowsheets (Taken 05/16/2025 194) Progress: improving Plan of Care Reviewed With: [...] Ongoing, Progressing Intervention: Promote Activity and Functional Duarte Flowsheets (Taken 05/16/20251948) Self-Care Promotion: independence encouraged * Progress Notes - Chayo Jennings RN - 05/16/2025 2:16 PM EST Case Management Adult Progress Note Gonzalo Smalls 49 y.o. male CSN: [id number] Admission: 04/27/2025 9:29 PM Primary Problem: Diabetic foot ulcer Anticipated Discharge Date: 05/18/25 Pt is in a need for rehab placement and was referred and accepted by Merly Espinoza- LOLA CM spoke with Araceli in admission, ph#[phone] who confirmed pts acceptance. Pt updated and in agreement with d/c plan. Ambulance for to transport he pt at d/c is arranged for 9:30AM on 05/18. Team updated.LOLA TOVAR will continue to follow and assist as needed. Chayo Jennings RN * Consults - Vivian Garcia RN - 05/16/2025 1:08 PM ESTAssociated Order(s): IP CONSULT TO DIABETIC EDUCATION Adult Diabetes Education Team Note Gonzalo Smalls 49 y.o. male CSN: [id number] This is a 49 y.o. male patient was admitted to [facility] with the diagnosis of Diabetic Foot [...] Hayward APRN, [facility] is Dr. Garvey in [place], [place]. 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 They have postulated this to be [...] the video go to this web address: [email or web address] Or, scan this QR code with your [...] to gently smooth the nail. Have a carbon coater machine operator trim your nails if you can't [...] remove corns, calluses, or warts by yourself. [id number]-[id number] products can burn or damage your skin. [...] your primary care doctor or by a carbon coater machine operator. This is a doctor who specializes in foot care. Some diabetes centers have regular foot clinics. Last Reviewed Date: 2024 00:00:00 ?? [id number] [employer]. All rights reserved. This information is not intended as a substitute for professional medical care. Always follow your healthcare professional's instructions. * Ruy Baires - Vivian Garcia RN - 05/16/2025 11:06 AM EST Images from the original note were not included. [id number] Inspecting Your Feet (Diabetes) [id number]-xf-[id number]: Last Reviewed Date: 2024 00:00:00 ?? [id number] [employer]. All rights reserved. This information is not [...] (H) 05/14/2025 I reviewed bg tracing in [facility] glucose timeline 05/16/25 ASSESSMENT Hospital Course: Gonzalo [...] -Diabetes education: completed 05/10 -Follow-up plan: home emergency management program specialist - Anette Kendall -Tentative discharge recommendations: -pt will need close monitoring by rehab facility provider as changes in diet and activity level maylead to changes in glycemic patterns and insulin requirement NOTE: -patient reports that once the new year hits, he worries about the cost of U500 insulin --> discussed cost through [employer] - should be able to get vials of U500 at $35 per vial. Also discussed contacting [employer] directly for the financial assistance program. -patient with plans to discharge to [facility] once able - need to check with [facility] to see if they are okay with utilizing U500 insulin if patient is able to bring in his own supply Insulin regimen - would like patient to utilize U500 home dosing at [facility] Continue Dexcom G7 CGM Likely continue Ozempic [...] team via secure chat orpage us at [phone] during 7a-7p, Thursday-Thursday. For after hours please contact the on-call Endocrine Fellow. Thank you for the opportunity to participate in this patient's care. - Reviewed notes by primary team and consulting services to determine appropriate plan of care as in the note. - Discussed plan and management with patient and sales representative advertising Time Spent: I personally spent a total [...] Note Gonzalo Smalls 49 y.o. male CSN: [id number] Room/Bed 117/117A Nutrition evaluation type: follow-up Reason [...] Weight Evaluation: Extreme Obesity (BMI > 40) [place] Body Weight (kg): 80.9 Percent [place] Body Weight: 311 Adjusted Body Weight (kg): [...] Regular Adult Carbohydrate Restriction: Consistent CHO 2 (8122-8457 Steven, 80 g/meal) Adult Sodium Restriction: 2,000 mg Na Percent Meals Eaten (%): 75-100% of meals Diet Experience and Nutrition History: Diet Education Provided: Will monitor Pertinent home medications: Albuterol, Bumex, Insulin, Metformin, Ozempic, Aldactone Lutheran needs: Nutrition Focused Physical Exam: Physical exam [...] has been following with urology outpatient at [facility]. They have postulated this to be related to his diabetes and have had several voiding trials which have failed. Also has un dergone proctoscopy (?) which was normal. 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 and he [...] plan and management with patient. Selin Lee Excellence Coach Division of Hospital Medicine [facility] * Care Plan - Santy Garcia RN - 05/15/2025 11:50 AM EST Problem: Skin Injury Risk Increased Goal: Skin Health and Integrity Outcome: Ongoing, Progressing Problem: Adult Inpatient Plan of Care Goal: Plan of Care Review Outcome: Ongoing, Progressing Flowsheets (Taken 05/15/2025 5320) Progress: improving Plan of Care Reviewed With: [...] Note Gonzalo Smalls 49 y.o. male CSN: [id number] Admission: 04/27/2025 9:29 PM Primary Problem: Diabetic foot ulcer Anticipated Discharge Date: TBD Pt was referred to many SNF in and out of [place]. Few SNF are considering accepting the pt along with [facility], ph#[phone]. LOLA TOVAR spoke with Araceli- admission at [facility]. Araceli is stating that she is [...] (H) 05/13/2025 I reviewed bg tracing in epic glucose timeline 05/15/25 ASSESSMENT Hospital Course: Gonzalo [...] mellitus - type 2 -Home medications: CGM: [employer] G7 Insulin regimen: U500 insulin: prescription for [...] -Diabetes education: completed 05/10 -Follow-up plan: home emergency management program specialist - Anette Kendall -Tentative discharge recommendations: -pt will need close monitoring by rehab facility provider as changes in diet and activity level maylead to changes in glycemic patterns and insulin requirement NOTE: -patient reports that once the new year hits, he worries about the cost of U500 insulin --> discussed cost through [employer] - should be able to get vials of U500 at $35 per vial. Also discussed contacting [employer] directly for the financial assistance program. -patient with plans to discharge to [facility] once able - need to check with [facility] to see if they are okay with utilizing U500 insulin if patient is able to bring in his own supply Insulin regimen - would like patient to utilize U500 home dosing at [facility] Continue Dexcom G7 CGM Likely continue Ozempic [...] team via secure chat orpage us at [phone] during 7a-7p, Thursday-Thursday. For after hours please [...] (H) 05/12/2025 I reviewed bg tracing in [facility] glucose timeline 05/14/25 ASSESSMENT Hospital Course: Gonzalo [...] -Diabetes education: completed 05/10 -Follow-up plan: home emergency management program specialist - Anette Kendall -Tentative discharge recommendations: -pt will need close monitoring by rehab facility provider as changes in diet and activity level maylead to changes in glycemic patterns and insulin requirement NOTE: -patient reports that once the new year hits, he worries about the cost of U500 insulin --> discussed cost through [employer] - should be able to get vials of U500 at $35 per vial. Also discussed contacting [employer] directly for the financial assistance program. -patient with plans to discharge to [facility] once able - need to check with [facility] to see if they are okay with utilizing U500 insulin if patient is able to bring in his own supply Insulin regimen - would like patient to utilize U500 home dosing at [facility] Continue Dexcom G7 CGM Likely continue Ozempic [...] via secure chat or page us at [phone] during 7a-7p, Thursday-Thursday. For after hours please [...] Ongoing, Progressing Intervention: Promote Activity and Functional Duarte Flowsheets Taken 05/14/2025945 Self-Care Promotion: independence encouraged BADL personal objects within reach BADL personal routines maintained meal set-up provided Taken 05/14/2025 0800 Activity Assistance Provided: assistance, stand-by assistance, 2 people Taken 05/13/2025 09 Adaptive Equipment Use: used independently Problem: Self-Care Deficit Goal: Improved Ability to Complete Activities of Daily Living Outcome: Ongoing, Progressing Intervention: Promote Activity and Functional Duarte Flowsheets Taken 05/14/202546 Self-Care Promotion: independence encouraged [...] has been following with urology outpatient at [facility]. They have postulated this to be related to his diabetes and have had several voiding trials which have failed. Also has un dergone proctoscopy (?) which was normal. 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 and he [...] plan and management with patient. Selin Lee Excellence Coach Division of Hospital Medicine [facility] * Care Plan - Asiya Nix RN - 05/13/2025 9:56 PM EDT Problem: Adult Inpatient Plan of Care Goal: Plan of Care Review 05/13/20252153 by Asiya Nix, RN Outcome: Ongoing, Progressing 05/13/20252150 by Asiya [...] Maintenance of Seizure Control 05/13/20252153 by Asiya Nxi RN Outcome: Ongoing, Progressing 05/13/20252150 by Asiya Nix RN Outcome: Ongoing, Progressing Problem: Wound Goal: Optimal Coping 05/13/20252153 by Asiya Nix RN Outcome: Ongoing, Progressing 05/13/20252150 by Asiya Nix RN Outcome: Ongoing, Progressing Goal: Optimal Pain Control and Function 05/13/20252153 by Asiya Nix RN Outcome: Ongoing, Progressing 05/13/20252150 by Asiya Nxi RN Outcome: Ongoing, Progressing Goal: Optimal Wound [...] Ongoing, Progressing Intervention: Promote Activity and Functional Duarte Flowsheets (Taken 05/13/20251999) Activity Assistance Provided: assistance, [...] (H) 05/11/2025 I reviewed bg tracing in [facility] glucose timeline 05/13/25 ASSESSMENT Hospital Course: Gonzalo [...] -Diabetes education: completed 05/10 -Follow-up plan: home emergency management program specialist - Anette Kendall -Tentative discharge recommendations: -pt will need close monitoring by rehab facility provider as changes in diet and activity level maylead to changes in glycemic patterns and insulin requirement NOTE: -patient reports that once the new year hits, he worries about the cost of U500 insulin --> discussed cost through [employer] - should be able to get vials of U500 at $35 per vial. Also discussed contacting [employer] directly for the financial assistance program. -patient with plans to discharge to [facility] once able - need to check with [facility] to see if they are okay with utilizing U500 insulin if patient is able to bring in his own supply Insulin regimen - would like patient to utilize U500 home dosing at [facility] Continue Dexcom G7 CGM Likely continue Ozempic [...] via secure chat or page us at [phone] during 7a-7p, Thursday-Thursday. For after hours please [...] Ongoing, Progressing Intervention: Promote Activity and Functional Duarte Flowsheets Taken 05/13/2025 0931 Adaptive Equipment Use: [...] has been following with urology outpatient at [facility]. They have postulated this to be related to his diabetes and have had several voiding trials which have failed. Also has un dergone proctoscopy (?) which was normal. 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 and he [...] [facility] labs[facility]als[facility]. Current condition is not [...] plan and management with patient. Selin Lee Excellence Coach Division of Hospital Medicine [facility] * Care Plan - Haritha Lam Yehuda - 05/12/2025 9:30 PM EDT Problem: [...] Ongoing, Progressing Intervention: Promote Activity and Functional [place]arte Flowsheets (Taken 05/12/20252128) Activity Assistance Provided: assistance, 2 people Self-Care Promotion: independence encouraged BADL personal objects within reach BADL personal routines maintained meal set-up provided * Progress Notes - Max Alexander - 05/12/2025 4:32 PM EDT Case Management Adult Progress Note Gonzalo Blackman Smalls 49 y.o. male CSN: [id number] Admission: 04/27/2025 9:29 PM Primary Problem: Diabetic foot ulcer Anticipated Discharge Date: TBD Plan of care reviewed with pt's care team; and per MD, pt is medically ready for discharge pending placement. SW sent [address] [facility]. SW will continue to follow-up with pt's MD and care team on their progress and discharge plan. Max Alexander MSW, SEAM STAY STITCHER Senior Public Address System Mechanic/Case Management [facility] * Progress Notes - Selin Lee [...] has been following with urology outpatient at [facility]. They have postulated this to be related to his diabetes and have had several voiding trials which have failed. Also has un dergone proctoscopy (?) which was normal. 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 and he [...] the labs, vitals, and [facility]. Current condition is not [...] plan and management with patient. Selin Lee Excellence Coach Division of Hospital Medicine [facility] * Progress Notes - Lynda Choudhury, IN SHOP SERVICE TECHNICIAN - 05/12/2025 12:58 PM EDT Endocrine - [...] -Diabetes education: completed 05/10 -Follow-up plan: home emergency management program specialist - Anette Kendall -Tentative discharge recommendations: -pt [...] at $35 per vial. Also discussed contacting [employer] directly for the financial assistance program. -patient with plans to discharge to [facility] once able - need to check with [facility] to see if they are okay with utilizing U500 insulin if patient is able to bring in his own supply Insulin regimen - would like patient to utilize U500 home dosing at [facility] Continue Dexcom G7 CGM Likely continue Ozempic [...] via secure chat or page us at [phone] during 7a-7p, Thursday-Thursday. For after hours please [...] 1. Other chronic osteomyelitis of right foot ([facility]/HCC) 2. Diabetic foot ulcer with osteomyelitis 3. [...] Atrial fibrillation ([facility]), CAP (community acquired pneumonia) (05/19/2024), Cellulitis (05/19/2024), [...] understanding. Participants in Care Family/Caregiver Present: No Draftsperson: Not Applicable Presentation Oxygen Therapy: Supplemental oxygen [...] of Function Receives Help From: Spouse Mobility Duarte: Independent gait with device ADL Performance: Needs assistance Bathing: Needs assist Upper Body Dressing: Needs assist Lower Body Dressing: Needs assist Grooming: Needs assist Toileting: Independent Eating: Independent Home Management Skills: Needs assist Patient/Family Goals Return home at [facility] Objective Pain Pt reported 7/10 pain in [...] Mobility Bed Mobility Exam: Scooting/Bridging Level of Duarte: Contact guard (scooting hips forward to edge of bed) Physical/Nonphysical Assist: Verbal Cues, Minimal cues Assistive Device: Overhead trapeze Bed Mobility Exam: Supine to Sit Level of Duarte: Minimum assist (75% patient's effort) Physical/Nonphysical Assist: HOB elevated, Verbal Cues Assistive Device: Overhead trapeze Bed Mobility Exam: Sit to Supine Level of Duarte: Stand-by assist Physical/Nonphysical Assist: Verbal Cues, Minimal cues Assistive Device: Overhead trapeze Transfers Transfer Exam: Sit to stand Level of Duarte: Maximum assist (25% patient's effort) (x3 reps from edge of bed, good adherence to NWB RLE) Physical/Nonphysical Assist: Verbal Cues, Nonverbal cues (demo/gestures), Additional assist utilized for safety Assistive Device: Walker, rolling (bariatric) Transfer Exam: Stand to Sit Level of Duarte: Maximum assist (25% patient's effort) Physical/Nonphysical Assist: [...] \ Standardized Assessments Standardized Assessments Standardized Assessments: [facility] 6-Clicks Mobility Assessment [facility] 6-Clicks Mobility Assessment Difficulty patient has turning [...] climbing 3-5 steps with a railing?: Unable [facility] 6-Clicks Mobility Assessment Total : 11 Assessment [...] session. Participants in Care Family/Caregiver Present: No Draftsperson: Not Applicable Presentation Oxygen Therapy: Supplemental oxygen [...] of Function Receives Help From: Spouse Mobility Duarte: Independent gait with device ADL Performance: Needs [...] Mobility Bed Mobility Exam: Scooting/Bridging Level of Duarte: Contact guard (scooting hips forward to edge of bed) Physical/Nonphysical Assist: Verbal Cues, Minimal cues Bed Mobility Exam: Supine to Sit Level of Duarte: Minimum assist (75% patient's effort) Physical/Nonphysical Assist: HOB elevated, Verbal Cues Assistive Device: Overhead trapeze Bed Mobility Exam: Sit to Supine Level of Duarte: Stand-by assist Physical/Nonphysical Assist: Verbal Cues, Minimal cues Assistive Device: Overhead trapeze Transfers Transfer Exam: Sit to stand Level of Duarte: Maximum assist (25% patient's effort) (x3 reps from edge of bed, good adherence to NWB RLE) Physical/Nonphysical Assist: Verbal Cues, Nonverbal cues (demo/gestures), Additional assist utilized for safety Assistive Device: Walker, rolling (bariatric) Transfer Exam: Stand to Sit Level of Duarte: Maximum assist (25% patient's effort) Physical/Nonphysical Assist: [...] extremity support, Left upper extremity support ([facility] RW) Static Standing-Level of Assistance: Maximum [...] x3 reps of sit to stand to [facility] with max Ax2 persons each time, [...] Assessed: Other (Comment) (in stance at [facility] RW level) Toileting Interventions: Pt with small incontinent BM, required dep A for hygiene to buttocks in stance at [facility] level with assistance from 2nd person [...] a helper. 5 Set-up or Clean-up Assistance [place] sets up or cleans up; patient completes activity. [place] assists only prior to or following the activity. 4 Supervision or touching assistance [place] provides verbal cues and/or touching/steadying and/or contact guard assistance as patient completes activity. Assistance may be provided throughout the activity or intermittently. 3 Partial/Moderate Assistance [place] does LESS THAN HALF the effort. [place] lifts, holds or supports trunk or limbs, but provides less than half the effort. 2 Substantial/Maximal Assistance [place] does MORE THAN HALF the effort. [place] lifts or holds trunkor limbs and provides more than half the effort. 1 Dependent [place] does ALL of the effort. Patient does [...] Note Gonzalo Smalls 49 y.o. male CSN: [id number] Admission: 04/27/2025 9:29 PM Primary Problem: Diabetic foot ulcer Anticipated Discharge Date: TBD RN CM informed by bedside RN that pt's weight was obtained and current weight is 244.3kg (538.5 lbs)- due to pt being over 500 lbs [facility] is not able to accept the [...] Note Gonzalo Smalls 49 y.o. male CSN: [id number] Admission: 04/27/2025 9:29 PM Primary Problem: Diabetic foot ulcer Anticipated Discharge Date: TBD LOLA TOVAR f/ u with [facility]- admission at [facility]. [facility] is stating that they might [...] foot ulcer. Mr. Smalls presented to an [facility] they are recommended to coming to for evaluation due to his size and delayed ability to get him in the OR. Of note, Mr. Smalls is receiving enteral panel for recurrent UTI and has a chronic Barber. Per chart review it appears that the kidney infection is for ESBL E coli. ED lab workwas significant for leukocytosis, anemia, hyperglycemia, hypokalemia, hypomagnesemia, elevated CRP a nd sed rate. Imaging showed osteomyelitis of the [...] u-500 dosing and add mealtime bolus. Starting on10/31 will consider TID dosing of u- 500 [...] -Diabetes education: completed 05/10 -Follow-up plan: home emergency management program specialist - Anette Kendall -Tentative discharge recommendations: -pt [...] at $35 per vial. Also discussed contacting [employer] directly for the financial assistance program. -patient with plans to discharge to [facility] once able - need to check with [facility] to see if they are okay with utilizing U500 insulin if patient is able to bring in his own supply Insulin regimen - would like patient to utilize U500 home dosing at [facility] Continue Dexcom G7 CGM Likely continue Ozempic [...] via secure chat or page us at [phone] during 7a-7p, Thursday-Thursday. For after hours please [...] Progressing Intervention: Promote Wound Healing Flowsheets (Taken 05/11/2025899) Sleep/Rest Enhancement: awakenings minimized reading promoted consistent [...] has been following with urology outpatient at [facility]. They have postulated this to be related to his diabetes and have had several voiding trials which have failed. Also has un dergone proctoscopy (?) which was normal. 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 and he [...] FULL CODE Medically Ready for Discharge:Ready now, [facility] denied admission, referral sent for swing beds, [...] plan and management with patient. Selin Lee Excellence Coach Division of Hospital Medicine [facility] * Care Plan - Genaro Haritha Yehuda - 05/10/2025 10:38 PM EDT Problem: [...] has been following with urology outpatient at [facility]. They have postulated this to be related to his diabetes and have had several voiding trials which have failed. Also has un dergone proctoscopy (?) which was normal. 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 and he [...] plan and management with patient. Selin Lee Excellence Coach Division of Hospital Medicine [facility] * Progress Notes - Chayo Jennings RN - 05/10/2025 8:59 AM EDT Case Management Adult Progress Note Gonzalo Smalls 49 y.o. male CSN: [id number] Admission: 04/27/2025 9:29 PM Primary Problem: Diabetic foot ulcer Anticipated Discharge Date: TBD LOLA TOVAR f/u on [facility] referral and was told that [facility] physician declined pt's acceptance to [facility]. RN CMvisited with the pt this [...] mellitus - type 2 -Home medications: CGM: Soundtracker G7 Insulin regimen: U500 insulin: prescription for [...] -Diabetes education: completed 05/10 -Follow-up plan: home emergency management program specialist - Anette Kendall -Tentative discharge recommendations: -pt will need close monitoring by rehab facility provider as changes in diet and activity level maylead to changes in glycemic patterns and insulin requirement NOTE: -patient reports that once the new year hits, he worries about the cost of U500 insulin --> discussed cost through [employer] - should be able to get vials of U500 at $35 per vial. Also discussed contacting [employer] directly for the financial assistance program. -patient with plans to discharge to [facility] once able - need to check with [facility] to see if they are okay with utilizing U500 insulin if patient is able to bring in his own supply Insulin regimen - would like patient to utilize U500 home dosing at [facility] Continue Dexcom G7 CGM Likely continue Ozempic [...] team via secure chat orpage us at [phone] during 7a-7p, Thursday-Thursday. For after hours please [...] sit <> stand transfers Visitors Present none Draftsperson (if applicable) N/a OBJECTIVE PAIN Pt endorses [...] Mobility Bed Mobility Exam: Scooting/Bridging Level of Duarte: Stand-by assist Physical/Nonphysical Assist: Verbal Cues, Minimal cues Assistive Device: Overhead trapeze Bed Mobility Exam: Supine to Sit Level of Duarte: Stand-by assist Physical/Nonphysical Assist: Verbal Cues, Minimal cues, HOB elevated Assistive Device: Overhead trapeze Bed Mobility Exam: Sit to Supine Level of Duarte: Stand-by assist Physical/Nonphysical Assist: Verbal Cues, Minimal cues Assistive Device: Overhead trapeze Transfers Transfer Exam: Sit to stand Level of Duarte: Maximum assist (25% patient's effort) Physical/Nonphysical Assist: Set-up required, Additional assist utilized for safety, Maximal cues, Verbal Cues, Nonverbal cues (demo/gestures) Assistive Device: Hand held assist Transfer Exam: Stand to Sit Level of Duarte: Maximum assist (25% patient's effort) Physical/Nonphysical Assist: [...] session Participants in Care Family/Caregiver Present: No Draftsperson: Not Applicable Presentation Oxygen Therapy: Supplemental oxygen [...] sequencing Bed Mobility Exam: Scooting/Bridging Level of Duarte: Stand-by assist Physical/Nonphysical Assist: Verbal Cues, Minimal cues Assistive Device: Overhead trapeze Bed Mobility Exam: Supine to Sit Level of Duarte: Stand-by assist Physical/Nonphysical Assist: Verbal Cues, Minimal cues, HOB elevated Assistive Device: Overhead trapeze Bed Mobility Exam: Sit to Supine Level of Duarte: Stand-by assist Physical/Nonphysical Assist: Verbal Cues, Minimal [...] placement, sequencing, weight shifting, appropriate use of ACQUISITION MARKETING COORDINATOR, and maintaining NWB on LLE. Tactile cues provided to assist in sequencing and weight shifting. Transfer Exam: Sit to stand Level of Duarte: Maximum assist (25% patient's effort) Physical/Nonphysical Assist: Set-up required, Additional assist utilized for safety, Maximal cues, Verbal Cues, Nonverbal cues (demo/gestures) Assistive Device: Hand held assist Transfer Exam: Stand to Sit Level of Duarte: Maximum assist (25% patient's effort) Physical/Nonphysical Assist: [...] assistance Static Standing - Interventions: Standing w ACQUISITION MARKETING COORDINATOR Therapeutic Activity (40 minutes) See bed mobility, balance, and transfers sections for more detail. Standardized Assessments [facility] 6-Clicks Mobility Assessment Difficulty patient has turning [...] climbing 3-5 steps with a railing?: Unable [facility] 6-Clicks Mobility Assessment Total : 13 Assessment [...] 3:00 PM EDT Associated attestation - Ron Matrinez N - 05/09/2025 3:00 PM EDT As the supervising therapist, I was present during the entire PT treatment and have reviewed and agree with this document written by the student therapist for this patient on this date/time. Ron Martinez, PT, DPT * Consults - Kylee Ann, RD - 05/09/2025 8:22 AM EDT Adult Nutrition Evaluation Note Gonzalo Smalls 49 y.o. male CSN: [id number] Room/Bed 117/117A Nutrition evaluation type: follow-up Reason [...] Supplemental oxygen O2 Delivery Method: Nasal cannula [place] Coma Scale Score: 15 Miguel Ángel Scale [...] Weight Evaluation: Extreme Obesity (BMI > 40) [place] Body Weight (kg): 80.9 Percent [place] Body Weight: 311 Adjusted Body Weight (kg): [...] Regular Adult Carbohydrate Restriction: Consistent CHO 2 ([id number] Steven, 80 g/meal) Adult Sodium Restriction: 2,000 mg Na Percent Meals Eaten (%): 100% of meals Diet Experience and Nutrition History: Diet Education Provided: Will monitor Pertinent home medications: Albuterol, Bumex, Insulin, Metformin, Ozempic, Aldactone Lutheran needs: Nutrition Focused Physical Exam: Physical exam [...] sodium chloride * Progress Notes - Lynda ChoudhuryADALGISA - 05/09/2025 8:09 AM EDT Endocrine - [...] mellitus - type 2 -Home medications: CGM: Soundtracker G7 Insulin regimen: U500 insulin: prescription for [...] continue to assess need -Follow-up plan: home emergency management program specialist - Anette Kendall -Tentative discharge recommendations: NOTE: -patient reports that once the new year hits, he worries about the cost of U500 insulin -patient with plans to discharge to [facility] once able - need to check with [facility] to see if they are okay with utilizing U500 insulin if patient is able to bring in his own supply Insulin regimen - would like patient to utilize U500 home dosing at [facility] Continue Dexcom G7 CGM Likely continue Ozempic [...] via secure chat or page us at [phone] during 7a-7p, Thursday-Thursday. For after hours please [...] has been following with urology outpatient at [facility]. They have postulated this to be related to his diabetes and have had several voiding trials which have failed. Also has un dergone proctoscopy (?) which was normal. 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 and he [...] Ready for Discharge:Ready now, awaiting placement to [facility] Selin Lee Excellence Coach Division of Hospital Medicine [facility] * Care Plan - Checo Monson [...] continue to assess need -Follow-up plan: home emergency management program specialist - Anette Kendall -Tentative discharge recommendations: NOTE: -patient reports that once the new year hits, he worries about the cost of U500 insulin -patient with plans to discharge to [facility] once able - need to check with [facility] to see if they are okay with utilizing U500 insulin if patient is able to bring in his own supply Insulin regimen - would like patient to utilize U500 home dosing at [facility] Continue Dexcom G7 CGM Likely continue Ozempic Likely continue metformin May substitute for therapeutic equivalent per insurance and retail PharmD approval -Supplies/scripts needed: Ensure patient has working glucose meter and supplies as back-up to CGM Lynda Choudhury, IN SHOP SERVICE TECHNICIAN DM/Endo team will continue to follow. Please notify us as patient nears discharge for final recommendations Please contact Lynda Choudhury APRN [place] Adult Inpatient Diabetes team via secure chat or page us at [phone] during 7a-7p, Thursday-Thursday. For after hours please [...] Note Gonzalo Smalls 49 y.o. male CSN: [id number] Admission: 04/27/2025 9:29 PM Primary Problem: Diabetic [...] acute rehab. RNCM awaiting MD approval from [facility]. Liaison will reach out with answer. Will continue to follow. RNCM will continue to monitor for further discharge needs. Mayra Apodaca RN * Care Plan - Jeevan Shah RN - 05/08/2025 12:43 PM EDT Problem: Wound Goal: Optimal Wound Healing Outcome: Ongoing, Progressing Intervention: Promote Wound Healing Note: See recs, cont wound vac Patient evaluated by WOC nurse, individualized recommendations [...] 05/08/2025 10:19 AM Wound Image Wound Assessment [place];Red (moist) Margins Well-defined edges [place]-Wound Assessment Intact [...] the video go to this web address: [email or web address] Or, scan this QR code with your smart phone ?? [facility] * Thi Chavarria RN - 05/08/2025 10:55 AM EDT Images from the original note were not included. Type 2 diabetes: 7 Ways to Prevent Usp Complications - Video Watch this video to [...] the video go to this web address: [email or web address] Or, scan this QR code with your [...] to gently smooth the nail. Have a carbon coater machine operator trim your nails if you can't [...] remove corns, calluses, or warts by yourself. Hdez-wgx-xsselsv products can burn or damage your skin. [...] your primary care doctor or by a carbon coater machine operator. This is a doctor who specializes in foot care. Some diabetes centers have regular foot clinics. Last Reviewed Date: 2024 00:00:00 ?? 7640-4291 [employer]. All rights reserved. This information is not intended as a substitute for professional medical care. Always follow your healthcare professional's instructions. * [facility] [employer] - Thi Carmona RN - 05/08/2025 10:55 AM EDT Images from the original note were not included. What is Type 2 Diabetes? - Video Watch this clip to understand what happens within your body when you have type 2 diabetes, and the importance of keeping your blood glucose levels within a healthy range. To view the video go to this web address: [email or web address] Or, scan this QR code with your smart phone ?? [facility] * Consults - Beatriz Hu DO - 05/08/2025 8:38 AM EDTAssociated Order(s): Inpatient consult to Urology Inpatient consult to Urology Consult performed by: Beatriz Hu DO Consult ordered by: Diane Guzman MD [facility] Urology Consult Note 05/08/25 Service Requesting Consultation: Hospital Medicine CC: urinary retention HPI: Gonzalo Smalls is a 49 y.o. male with a past urologic history of urinary retention, recurrent UTIs,BPH, morbid obesity who presented to [facility] ED with diabetic foot [...] states. After this he presented to an [facility] urologist Dr. Painting who stated [...] (NEURONTIN) 600 mg, 3 times daily HYDROcodone-acetaminophen ([place]) 10-325 MG tablet 1 tablet, Every 6 hours PRN Insulin Pen Needle (Pen [place]) 31G X 5 MM misc USE TO [...] obesity and uncontrolled diabetes who presented to [facility] ED with diabetic foot [...] states. After this he presented to an [facility] urologist Dr. Painting who stated [...] established care with a Dr. Mendenhall an [facility] urologist as this is closer [...] established care with a Dr. Mendenhall an [facility] urologist as this is closer to home and will call him to schedule a follow up appointment as he does not wish to FU with urology because it is too far from home Trudy Hu DO [1] Past Medical History: Diagnosis Date Acute kidney injury 05/19/2024 Alcohol abuse, in remission Alcohol abuse, in remission Anxiety disorder, unspecified Anxiety Arthritis Atrial fibrillation ([facility]/HCC) CAP (community acquired pneumonia) 05/19/2024 Cellulitis [...] has been following with urology outpatient at [facility]. They have postulated this to be related to his diabetes and have had several voiding trials which have failed. Also has un dergone proctoscopy (?) which was normal. 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 and he [...] Mobility Bed Mobility Exam: Scooting/Bridging Level of Duarte: Stand-by assist Physical/Nonphysical Assist: Verbal Cues Bed Mobility Exam: Supine to Sit Level of Duarte: Contact guard Physical/Nonphysical Assist: Set-up required, Verbal Cues, Minimal cues Bed Mobility Exam: Sit to Supine Level of Duarte: Minimum assist (75% patient's effort) Physical/Nonphysical Assist: Set-up required, Verbal Cues, Minimal cues Transfers Transfer Exam: Sit to stand Level of Duarte: (Pt attempted with use of bariatric RW; [...] return to supine. Therapeutic Exercise Access Code: [email or web address] HEP printed and pt received copy with [...] provided based on observable deficits.* Level of Duarte Interventions Grooming Patient demo's adequate BUE strength/ROM [...] maintain WB status. FUNCTIONAL MOBILITY Level of Duarte Physical/Non-physical Assist Adaptive Equipment Utilized Scooting/ Bridging [...] Appearance Posture: Within Functional Limits Level of Duarte Balance Support Static Sit Standby assist Feet supported Dynamic Sit Standby assisst Feet supported THERAPEUTIC EXERCISE INTERVENTIONS (10 minutes) Treatment Details The patient was educated re: implementation of BUE HEP in order to target muscle groups necessary for functional mobility and ADL independence. HEP printed and each exercise reviewed, pt verbalized understanding. Buffer Access Details (if appropriate) Access Code: [email or web address] URL: [email or web address] Date: 10/26/25 Exercises Included - Seated Elbow Flexion with [...] has been following with urology outpatient at [facility]. They have postulated this to be related to his diabetes and have had several voiding trials which have failed. Also has un dergone proctoscopy (?) which was normal. 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 and he [...] now * Progress Notes - Aileen Leonardo, IN SHOP SERVICE TECHNICIAN - 05/07/2025 7:33 AM EDT Endocrine - [...] epic glucose timeline 05/07/25 ASSESSMENT Hospital Course: Gonzlao Smalls is a 49 y.o. male with [...] continue to assess need -Follow-up plan: home emergency management program specialist - Anette Kendall -Tentative discharge recommendations: NOTE: -patient reports that once the new year hits, he worries about the cost of U500 insulin -patient with plans to discharge to [facility] once able - need to check with [facility] to see if they are okay with utilizing U500 insulin if patient is able to bring in his own supply Insulin regimen - would like patient to utilize U500 home dosing at [facility] Continue Dexcom G7 CGM Likely continue Ozempic [...] Adult Inpatient Diabetes team via secure chat [email or web address] us at [phone] during 7a-7p, Thursday-Thursday. For after hours please [...] Goal (Individualized) Outcome: Ongoing, Progressing Flowsheets (Taken 05/05/2025 2000 by Judd Zavaleta RN) Patient/Family-Specific Goals (Include [...] has been following with urology outpatient at [facility]. They have postulated this to be related to his diabetes and have had several voiding trials which have failed. Also has un dergone proctoscopy (?) which was normal. 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 and he [...] now * Progress Notes - Aileen Leonardo, IN SHOP SERVICE TECHNICIAN - 05/06/2025 7:46 AM EDT Endocrine - Diabetes Consult follow-up: Subjective: 24 hour update: -patient discharging to [facility] around Thursday or Thursday - need to check with [facility] to see if they are okay with [...] (H) 05/04/2025 I reviewed bg tracing in [facility] glucose timeline 05/06/25 ASSESSMENT Hospital Course: Gonzalo [...] continue to assess need -Follow-up plan: home emergency management program specialist - Anette Kendall -Tentative discharge recommendations: -patient discharging to [facility] around Thursday or Thursday - need to check with [facility] to see if they are okay with [...] team via secure chat orpage us at [phone] during 7a-7p, Thursday-Thursday. For after hours please [...] is in abx, has his CHG and Dougherty wipes done in this shift Problem: Mobility [...] vascular surgery; wound vac applied 05/03 by [facility] Wound Assessment: Wound 05/01/25 Surgical Toe (Comment which one) Anterior;Right (Active) Date First Assessed/Time First Assessed: 05/01/25 0805 Present on Original Admission: No Hand Hygiene Completed: Yes Primary Wound Type: Surgical Location: Toe (Comment which one) Wound Location Orientation: Anterior;Right Assessments 05/05/2025 11:44 AM Wound Image Wound Assessment [place];Red (moist , full thickness) Margins Well-defined edges [...] no orders noted for wound vac, maessaged [facility] team for guidance. Orders placedfor nursing to [...] Problem: Wound Goal: Optimal Wound Healing 05/05/2025 142 by Jeevan Shah RN Outcome: Ongoing, Progressing 05/05/2025 142 by Jeevan Shah RN Outcome: Ongoing, Progressing Intervention: Promote Wound Healing Note: See recs, wound vac in use Patient evaluated by [facility] nurse, individualized recommendations placed and care plan interventions updated; see wound care note for details regarding recommendations to support optimal wound healing. * Progress Notes - Mayra Apodaca RN - 05/05/2025 12:30 PM EDT Case Management Adult Progress Note Gonzalo Smalls 49 y.o. male CSN: [id number] Admission: 04/27/2025 9:29 PM Primary Problem: Diabetic [...] No MDRO isolated 04/27/25 Blood culture NGTD [facility] Culture Data: - 04/25/25: Blood culture [...] is planned to discharge to [facility]. Recommend close follow-up with vascular surgery [...] PA-C Division of Infectious Diseases Available by [employer] Chat History, assessment, and plan discussed with [...] via secure chat or page us at [phone] during 7a-7p, Thursday-Thursday. For after hours please [...] food preferences provided * Care Plan - Rcoío Crandall RN - 05/04/2025 6:09 PM EDT [...] precautions. Bed Mobility Exam: Rolling/Turning Level of Duarte: Contact guard Physical/Nonphysical Assist: Verbal Cues, Moderate cues Bed Mobility Exam: Scooting/Bridging Level of Duarte: Stand-by assist Bed Mobility Exam: Supine to Sit Level of Duarte: Contact guard Physical/Nonphysical Assist: Verbal Cues Bed Mobility Exam: Sit to Supine Level of Duarte: Stand-by assist Patient performed rolling bilaterally for placement of lift pad. Transfers Transfer Exam: Sit to stand Level of Duarte: (Patient unable to perform without engaging right [...] promote tempo and full ROM. Standardized Assessments [facility] 6-Clicks Mobility Assessment Difficulty patient has turning [...] climbing 3-5 steps with a railing?: Unable [facility] 6-Clicks Mobility Assessment Total : 12 Assessment [...] help from Spouse Level of Mobility Mobility Duarte History of Falls ADL Performance Needs assistance [...] to therapy this date. Visitors Present No Draftsperson (if applicable) OBJECTIVE PAIN Pain Score (0-10): [...] sba for bed mobility tasks. Level of Duarte Adaptive Equipment Utilized Comments Feeding Grooming Setup washing face/hands Bathing Upper Body Dressing Lower Body Dressing Shoe Level of Assistance: Dependent Toileting IADLs Health Management Community Re-Entry BALANCE Postural Appearance INTERVENTIONS Level of Duarte Balance Support Comments Static Sit Standby assist [...] weight shifting to promote safety. Level of Duarte Physical/Non-physical Assist Adaptive Equipment Utilized Rolling/ Turning [...] No MDRO isolated 04/27/25 Blood culture NGTD [facility] Culture Data: - 04/25/25: Blood culture [...] PA-C Division of Infectious Diseases Available by [employer] History, assessment, and plan discussed with ID [...] mL IVPB (vial adapter required) 2 g [id number] Diane Guzman MD 36.7 mL/hr at 05/03/25 2354 2 g at 10/2353 DAPTOmycin (Cubicin) 1,500 mg in sodium chloride 0.9 % 100 mL IVPB 10 mg/kg (Adjusted) Intravenous q24h Marjorie Myers MD 280 mL/hr at 05/03/251810 1,500 mg at 05/03/251810 glucose (Glutose) 40 [...] 30 Units Subcutaneous TID with meals Sarah Martienz APRN 30 Units at 05/03/251810 Insulin Lispro (Admelog, HumaLOG) 100 UNIT/ML injection 8 Units 8 Units Subcutaneous BID PRN Sarah Martinez IN SHOP SERVICE TECHNICIAN insulin NPH (Isophane) (HumuLIN N,NovoLIN N) injection 50 Units 50 Units Subcutaneous BID Sarah Martinez, IN SHOP SERVICE TECHNICIAN 50 Units at 05/03/252043 ipratropium-albuterol (Duo-Neb) 0.5-2.5 [...] breakfast Marjorie Myers MD 40 mg at 05/03/2534 polyethylene glycol (Miralax) packet 17 g 17 g Oral Daily Marjorie Myers MD 17 g at 05/03/25920 rivaroxaban (Xarelto) tablet 20 mg 20 mg Oral Daily with dinner Diane Guzman MD 20 mg at 05/03/25 181 sodium chloride 0.9 % flush 10 mL [...] Red man syndrome * Progress Notes - Carrolmatt Aileen BlackADALGISA - 05/04/2025 8:37 AM EDT Endocrine - [...] (H) 05/02/2025 I reviewed bg tracing in [facility] glucose timeline 05/04/25 ASSESSMENT Hospital Course: Gonzalo [...] continue to assess need -Follow-up plan: home emergency management program specialist - Anette Kendall -Tentative discharge recommendations: Insulin [...] team via secure chat orpage us at [phone] during 7a-7p, Thursday-Thursday. For after hours please [...] Progress: improving Taken 05/02/2025 182 by Santy Garcia RN Plan of Care [...] (Taken 05/01/2025 1130 by Rocío Crandall, LOLA) Trust Relationship/Rapport: care explained choices provided emotional [...] Success Flowsheets (Taken 05/02/20251819 by Santy Garcia, LOLA) Supportive Measures: relaxation techniques promoted self-care encouraged [...] from the original note were not included. [facility] Department of Surgery Division of [...] Airway None Output by Drain (mL) 05/01/25 07 - 05/01/25 18505/01/25 190 - 05/02/25 0659 05/02/25 07 - 05/02/25 1859 05/02/25 1900 - 05/03/25 [...] y.o. male who presented to [facility] 04/27/2025 with diabetic foot ulcer now [...] Note Gonzalo Smalls 49 y.o. male CSN: [id number] Admission: 04/27/2025 9:29 PM Primary Problem: Diabetic [...] No MDRO isolated 04/27/25 Blood culture NGTD [facility] Culture Data: - 04/25/25: Blood culture [...] PA-C Division of Infectious Diseases Available by [employer] History, assessment, and plan discussed with ID [...] night Marjorie Myers MD 3 Units at 05/03/254 Insulin Lispro (Admelog, HumaLOG) 100 UNIT/ML injection 30 Units 30 Units Subcutaneous TID with meals Martinez, Sarah P, IN SHOP SERVICE TECHNICIAN 30 Units at 05/03/25 0920 Insulin Lispro (Admelog, HumaLOG) 100 UNIT/ML injection 6 Units 6 Units Subcutaneous BID PRN Silvia Martinezi P, IN SHOP SERVICE TECHNICIAN insulin NPH (Isophane) (HumuLIN N,NovoLIN N) injection 42 Units 42 Units Subcutaneous BID Sarah Martinez P, IN SHOP SERVICE TECHNICIAN 42 Units at 05/03/25 0919 ipratropium-albuterol (Duo-Neb) [...] 100 mL IVPB 2 g Intravenous q8h OMarjorie weaver MD 50 mL/hr at 05/03/25 0400 2 [...] packet 17 g 17 g Oral Daily Oo, Yadana, MD 17 g at 05/03/25 0921 rivaroxaban [...] Days * Progress Notes - Sarah Martinez, IN SHOP SERVICE TECHNICIAN - 05/03/2025 7:55 AM EDT Endocrine - [...] continue to assess need -Follow-up plan: home emergency management program specialist - Anette Kendall -Tentative discharge recommendations: Insulin [...] via secure chat or page us at [phone] during -7p, Thursday-Thursday. For after hours please [...] from the original note were not included. [facility] Department of Surgery Division of Vascular [...] Care Review Outcome: Ongoing, Progressing Flowsheets (Taken 05/02/20251819) Progress: improving Plan of Care Reviewed With: [...] Activity Management: activity adjusted per tolerance Taken 05/01/20250 by Rocío Crandall RN Positioning/Transfer [...] Intervention: Optimize Skin Protection Flowsheets (Taken 05/02/2025 1255) Activity Management: activity adjusted per tolerance Pressure [...] No MDRO isolated 04/27/25 Blood culture NGTD [facility] Culture Data: - 04/25/25: Blood culture [...] PA-C Division of Infectious Diseases Available by [employer] History, assessment, and plan discussed with ID [...] mg 40 mg Oral Daily before breakfast Majrorie Myers MD 40 mg at 05/02/25 0745 [...] Marjorie Myers MD 0.4 mg at 05/02/25 09 traZODone (Desyrel) tablet 100 mg 100 mg Oral Nightly Marjorie Myers MD 100 mg at 05/01/252024 venlafaxine XR (Effexor-XR) 24 hr capsule 150 mg 150 mg Oral Daily Marjorie Myers MD 150 mg at 05/02/25 09 [2] Allergies Allergen Reactions Vancomycin Other [...] Note Gonzalo Smalls 49 y.o. male CSN: [id number] Room/Bed 117/117A Nutrition evaluation type: assessment Reason [...] at bedside. 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 No known unintentional weight changes, UBW 570#. [...] Weight Evaluation: Extreme Obesity (BMI > 40) [place] Body Weight (kg): 80.9 Percent [place] Body Weight: 311 Adjusted Body Weight (kg): [...] Regular Adult Carbohydrate Restriction: Consistent CHO 1 (6647-7109 Steven, 65 g/meal) Adult Sodium Restriction: 2,000 mg Na Percent Meals Eaten (%): 68% avg x 5 meals Diet Experience and Nutrition History: Diet Education Provided: Will monitor Pertinent home medications: Albuterol, Bumex, Insulin, Metformin, Ozempic, Aldactone Lutheran needs: Nutrition Focused Physical Exam: Physical exam [...] during admission Acuity Level: 1 Kylee Ann, HARISH, LD [1] Past Medical History: Diagnosis Date [...] from the original note were not included. [facility] Department of Surgery Division of Vascular [...] Output by Drain (mL) 04/30/25 07 - 04/30/25185804/30/25 190 - 05/01/25 0659 05/01/25 07 - 05/01/25 18505/01/25 190 - 05/02/25 0659 05/02/25 07 - 05/02/25 0753 Requested LDAs do not [...] from last 7 days Lab Units 05/02/25 03105/01/25 0214 04/30/25 0319 CREATININE mg/dL 0.73 0.71 [...] snacking overnight while watching the games including [employer], goldfish, ritz crackers and other snacks -no [...] treatment -plan and management discussed with patient, sales representative advertising, bedside RN NOTE: -Patient utilizes U500 insulin pen at home. With the U500 pen, a conversion is not needed. Typically patient's required a 70% reduction in home U500 dosing. 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: home emergency management program specialist - Anette Kendall -Tentative discharge recommendations: Insulin [...] via secure chat or page us at [phone] during 7a-7p, Thursday-Thursday. For after hours please [...] and rec amputation vs transfer to [facility] for podiatry input about foot salvage : cannot transfer to [facility] given weight limit, pod team cannot [...] Note Gonzalo Smalls 49 y.o. male CSN: [id number] Admission: 04/27/2025 9:29 PM Primary Problem: Diabetic [...] from the original note were not included. [facility] Department of Surgery Division of [...] nursing staff. I have notified senior resident/attending grooming salon manager with any issues or concerns. Leidy Velasco [...] bony pathology, duration TBD - Will contact [facility] tomorrow to check on urine culture [...] PA-C Division of Infectious Diseases Available by [employer] History, assessment, and plan discussed with ID [...] 50 mL/hr at 05/01/25310 2 g at 05/01/25310 [Transfer Hold] mupirocin (Bactroban) 2 % ointment [...] g 17 g Oral Daily Sy De LaF uente APRN, DNP17 g at 04/30/25 0953 [Held [...] mcg/mL infusion Intravenous PRN Muzic, Og A, MED AIDE 8 mcg at 05/01/25 0841 fentaNYL (Sublimaze) injection Intravenous PRN Muzic, Og A, MED AIDE 25 mcg at 05/01/25 0826 lactated Ringer's infusion Intravenous Continuous PRN Muzic, Og A, MED AIDE New Bag at 05/01/25 0728 midazolam (Versed) injection Intravenous PRN Muzic, Og A, MED AIDE 1 mg at 05/01/25 0757 [2] Allergies Allergen Reactions Vancomycin Other - please document in the comment field Red man syndrome * Progress Notes - Aileen Leonardo, ADALGISA - 05/01/2025 8:43 AM EDT Endocrine - [...] mellitus - type 2 -Home medications: CGM: Soundtracker G7 Insulin regimen: U500 insulin: prescription for [...] continue to assess need -Follow-up plan: home emergency management program specialist - Anette Kendall -Tentative discharge recommendations: Insulin [...] team via secure chat orpage us at [phone] during 7a-7p, Thursday-Thursday. For after hours please [...] AM EDT Operative Note Date: 05/01/25 Location: [facility] Name: Gonzalo Smalls, : 1975, Diagnoses: Pre-op Diagnosis Other chronic osteomyelitis of right foot (CMS/HCC) Post-op Diagnosis Other chronic osteomyelitis of right foot (CMS/HCC) Procedure(s): Right 5th toe ray amputation Attending Surgeon(s): * Mary Vicente - Primary Java Project Manager(s): * Paula Martinez MD - Resident - [...] and rec amputation vs transfer to [facility] for podiatry input about foot salvage : cannot transfer to [facility] given weight limit, pod team cannot [...] Pain and Promote Comfort Flowsheets (Taken 04/30/2025 145) Pain Management Interventions: medication (see MAR) care clustered diversional activity provided quiet environment facilitated Intervention: Provide Person-Centered Care Flowsheets (Taken 04/30/20251451) Trust Relationship/Rapport: care explained choices provided questions answered questions encouraged Problem: Infection Goal: Absence of Infection Signs and Symptoms Outcome: Ongoing, Progressing Intervention: Prevent or Manage Infection Flowsheets Taken 04/30/2025 145 Infection Management: aseptic technique maintained Fever Reduction/Comfort [...] kg/m?? Labs and medications reviewed. Blood glucose [id number] Medications: Current Scheduled Medications[1] Current Continuous Medications[2] [...] continue to assess need -Follow-up plan: home emergency management program specialist - Anette Kendall -Tentative discharge recommendations: Insulin [...] PGY-4 Division of Endocrinology, Diabetes and Metabolism [facility] Medically Ready for Discharge: [1] [...] from the original note were not included. [facility] Department of Surgery Division of Vascular [...] is unable to be transferred to [facility] for Podiatry due to weight Edited [...] night, recurrent UTIswho presented to [facility] with nonhealing right foot wound. Radiographs significant [...] Minimize and Manage Hypoglycemia Flowsheets (Taken 04/30/2025 2656) Hypoglycemia Management: blood glucose monitored * Progress [...] kg/m?? Labs and medications reviewed. Blood glucose [id number] Medications: Current Scheduled Medications[1] Current Continuous [...] continue to assess need -Follow-up plan: home emergency management program specialist - Anette Kendall -Tentative discharge recommendations: Insulin [...] PGY-4 Division of Endocrinology, Diabetes and Metabolism [facility] [1] atorvastatin, 40 mg, Oral, [...] amputation but we can transfer to [facility] for pod input about the surgery for the DM wound Vas team do not feel a debridement would sufficiently treat his wound. Reached out to APT team and plan to transfer him to [facility] Review of Systems Pain in right [...] and rec amputation vs transfer to [facility] for podiatry input about foot salvage [...] continue to assess need -Follow-up plan: home emergency management program specialist - Anette Kendall -Tentative discharge recommendations: Insulin [...] Adult Inpatient Diabetes team via secure chat [email or web address] us at [phone] during 7a-7p, Thursday-Thursday. For after hours please [...] Note Gonzalo Smalls 49 y.o. male CSN: [id number] Admission: 04/27/2025 9:29 PM Primary Problem: Diabetic foot ulcer Ice Maker reviewed chart and spoke with patient at bedside to complete this Initial Case Management Assessment. PCP: Malcolm Hayward, IN SHOP SERVICE TECHNICIAN Emergency Contact: Extended Emergency Contact Information Primary Emergency Contact: Maggie Smalls Mobile Relation: Spouse Preferred language: Yoruba Draftsperson needed? No Insurance: Primary Visit Coverage Payer Plan Sponsor Code Group Number Group Name THIAGO DAS [facility] [id number] Primary Visit Coverage Subscriber Subscriber ID Subscriber Name Subscriber [facility] Subscriber Address [id number] GONZALO SMALLS [id number] [address] [id number] Secondary Visit Coverage Payer Plan Sponsor Code Group Number Group Name MEDICARE MEDICARE A & B Secondary Visit Coverage Subscriber Subscriber ID Subscriber Name Subscriber [facility] Subscriber Address [id number] GONZALO SMALLS [id number] [address] [facility] Patient information: Primary Caregiver: Self Support System: Immediate family Daily Living Activities: Functional Status: Minimum assistance Living Arrangements: Spouse/Significant other, Children (daughter) Type of Residence: Private residence, Single Level (3 MICHAEL) [address] [facility] Smoker in the Home?: [...] line dressing changes Living Will/Advance Directive/Power of Mail Delivery Supervisor /Guardian: None Additional Comments: Patient admitted for [...] from the original note were not included. [facility] Department of Surgery Division of [...] night, recurrent UTIs who presented to the [facility] on 04/27/2025 with right foot wound. [...] file Social Connections: Unknown (04/24/2023) Received from [facility] Family and Community Support Help [...] History Administered Date(s) Administered Moderna COVID-19 Vaccine (Radiologic Tech) 12+ years 01/25/2021, 02/22/2021 Pneumococcal Conjugate PCV [...] a day. 09/05/21 Yes Provider, Historical HYDROcodone-acetaminophen ([place]) 10-325 MG tablet Take 1 tablet by [...] Yes Provider, Historical Insulin Pen Needle (Pen [place]) 31G X 5 MM misc USE TO [...] night, recurrent UTIswho presented to [facility] with nonhealing right foot wound. Radiographs significant [...] mg Oral Daily Sy De La Fuente ADALGISADENISE 0.4 mg at 04/28/25 0848 traZODone (Desyrel) tablet 100 mg 100 mg Oral Nightly Dir Leisaluis Maurice APRN, DNP venlafaxine XR (Effexor-XR) 24 hr [...] by mouth 3 times a day. HYDROcodone-acetaminophen ([place]) 10-325 MG tablet Take 1 tablet by [...] by mouth daily. Insulin Pen Needle (Pen [place]) 31G X 5 MM misc USE TO [...] [X] Family [ ] Friend [ ] Draftsperson [X] Medical records HISTORY OF PRESENT ILLNESS: [...] and was treated in theemergency department at [facility] a few days ago where a [...] in the ED 2-3 days ago at [facility]. I contacted [facility] who report blood cultures obtained 04/25/25 are currently no growth to date. Patient does also have a urine culture fromat date which is pending, but reported to [...] a day. 09/05/21 Yes Provider, Historical HYDROcodone-acetaminophen ([place]) 10-325 MG tablet Take 1 tablet by [...] Yes Provider, Historical Insulin Pen Needle (Pen [place]) 31G X 5 MM misc USE TO [...] Will follow-up blood and urine cultures from [facility] for further ID/susceptibilities, obtained 04/25 - Please obtain adult ID screening labs: Hep A IgG, Hep B sAb, Hep B sAg, and Hep B total core Ab - Plan of care and recommendations discussed with patient's primary provider Thank you for allowing us to participate in this patient's care. ID will follow. Janelle Phan PA-C Division of Infectious Diseases Available by [employer] History, assessment, and plan discussed with ID [...] by mouth 3 times a day. HYDROcodone-acetaminophen ([place]) 10-325 MG tablet Take 1 tablet by [...] by mouth daily. Insulin Pen Needle ([place]) 31G X 5 MM [facility] [...] Hypertension 02/18/2019 Morbid obesity ([facility]) 12/24/2016 Procedures Past Medical History Patient has a past medical history of Acute kidney injury (05/19/2024), Alcohol abuse, in remission, Anxiety disorder, unspecified, Arthritis, Atrial fibrillation ([facility]), CAP (community acquired pneumonia) (05/19/2024), Cellulitis (05/19/2024), [...] in Care Family/Caregiver Present: Yes Family/Caregiver: Spouse Draftsperson: Not Applicable Presentation Oxygen Therapy: None (Room [...] Patient/Family Goals Return home at [facility]. Objective Pain Pt reports 7/10 pain in [...] pain. Bed Mobility Exam: Rolling/Turning Level of [place]: Maximum assist (25% patient effort) Physical/Nonphysical Assist: Verbal Cues, Moderate cues Assistive Device: Bed rails, Other (ACQUISITION MARKETING COORDINATOR) Bed Mobility Exam: Scooting/Bridging Level of [place]: Maximum assist (25% patient's effort) (up in bed; Lester forward at EOB) Physical/Nonphysical Assist: Verbal Cues, Moderate cues Assistive Device: Bed rails Bed Mobility Exam: Supine to Sit Level of [place]: Maximum assist (25% patient's effort) Physical/Nonphysical Assist: Verbal Cues, Moderate cues, Set-up required, Additional assist utilized for safety Assistive Device: Other (ACQUISITION MARKETING COORDINATOR) Bed Mobility Exam: Sit to Supine Level of [place]arte: Maximum assist (25% patient's effort) Physical/Nonphysical Assist: [...] space Standardized Assessments Standardized Assessments Standardized Assessments: [facility] 6-Clicks Mobility Assessment [facility] 6-Clicks Mobility Assessment Difficulty patient has turning [...] climbing 3-5 steps with a railing?: Unable [facility] 6-Clicks Mobility Assessment Total : 8 No [...] Atrial fibrillation ([facility]), CAP (community acquired pneumonia) (05/19/2024), Cellulitis (05/19/2024), [...] CARE Subjective Pt reports Visitors Present Spouse Draftsperson (if applicable) PRESENTATION Oxygen Room Air Telemetry [...] help from Spouse Level of Mobility Mobility [place] History of Falls ADL Performance ADL Performance: [...] Mobility Bed Mobility Exam: Rolling/Turning Level of [place]: Maximum assist (25% patient effort) Physical/Nonphysical Assist: Verbal Cues, Moderate cues Assistive Device: Bed rails, Other (ACQUISITION MARKETING COORDINATOR) Bed Mobility Exam: Scooting/Bridging Level of [place]: Maximum assist (25% patient's effort) (up in bed; Lester forward at EOB) Physical/Nonphysical Assist: Verbal Cues, Moderate cues Assistive Device: Bed rails Bed Mobility Exam: Supine to Sit Level of [place]: Maximum assist (25% patient's effort) Physical/Nonphysical Assist: Verbal Cues, Moderate cues, Set-up required, Additional assist utilized for safety Assistive Device: Other (ACQUISITION MARKETING COORDINATOR) Bed Mobility Exam: Sit to Supine Level of [place]: Maximum assist (25% patient's effort) Physical/Nonphysical Assist: [...] POC an d discharge recommendations. 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 For after hours please [...] by mouth 3 times a day. HYDROcodone-acetaminophen ([place]) 10-325 MG tablet Take 1 tablet by [...] by mouth daily. Insulin Pen Needle ([place]) 31G X 5 MM [facility] [...] 04/28/2025 6:09 AM EDTAssociated Order(s): Consult to [facility] Images from the original note were not included. Consult to [facility] Consult performed by: Sy De [...] times a day. 09/05/21 Provider, Historical HYDROcodone-acetaminophen ([place]) 10-325 MG tablet Take 1 tablet by mouth every 6 hours as needed. Provider, Historical insulin NPH-insulin regular (NovoLIN 70/30 FlexPen) (70-30) 100 UNIT/ML injection pen Inject 90 Units under the skin 3 times a day before meals. FURTHER REFILLS WILL BE PROVIDED UPON ATTENDANCE OF NEXT OFFICE VISIT 03/29/25 02/22/25 Divine Archer APRN Insulin Pen Needle ([place]) 31G X 5 MM misc USE TO [...] 17 g by mouth daily. 12/17/24 Rachael Berrios, ADALGISA rivaroxaban (Xarelto) 20 MG tablet Take 1 [...] Value Units Date/Time Blood Culture (Aerobic/Anaerobet Set) [[id number]] Collected: 04/27/252215 Order Status: Completed Specimen: Blood, Venous Updated: 04/28/25111 Culture Culture in lab Blood Culture (Aerobic/Anaerobet Set) [[id number]] Collected: 04/27/252215 Order Status: Completed Specimen: Blood, [...] warmth, chills, vomiting. 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 Comments: Awake Psychiatric: Behavior: Behavior normal. [place] Coma Scale Score: 15 ED Course & [...] records from his previous hospital visit at [facility] which showed he was being treated [...] 0626 Date/Time Order Dose Route Action 04/27/2025 223 EDT lactated Ringer's infusion 500 mL 500 [...] Ordered Status Ordering Provider 04/28/25541 Consult to [facility] Once Specialty: Internal Medicine Provider: [...] RITCHIE 04/27/252106 C-reactive protein STAT Final result ERMA, MADHU Blackman 04/27/252106 Insert peripheral IV Continuous Acknowledged MADHU RITCHIE ED Course as of 05/07/25 1047 Michaelle Apr 27, 2025 2217 Magnesium(!) Repleting mag [SH] 2217 CBC w/diff(!) [...] of Pseudomonas coverage. I spoke with the charge account clerk to tryto get records from [facility] to see why he was being [...] Description 08/03/2025 2:00 PM EST Office Visit [facility] [address] [place] [address] 5th Floor [address] [place] [address] Mary Vicente MD [address] [place] [address] [address] [place] [address] Scheduled Orders Name Type Priority Associated Diagnoses [...] - 99 mg/dL 05/18/2025 8:11 AM EST [facility] Comment:Accuracy of a glucos e result [...] for testing. Comment 05/18/2025 8:11 AM EST [facility] Brick Handler ID Char Hinojosa 05/18/2025 8:11 AM EST [facility] Device ID [id number] 05/18/2025 8:11 AM EST [facility] Specimen Type POC Capillary 05/18/2025 8:11 AM EST [facility] Blood Capillary blood specimen / Unknown 05/18/2025 8:09 AM EST 05/18/2025 8:11 AM EST Umar R Jay Jay DO LAB POINT OF CARE TE ST DOCKED DEVICE UNSOLICITED RESULTS Final Result Performing Organization Address City/State/[facility] de Phone Number [facility] [address] [place] [address] * (ABNORMAL) POCT glucose meter (05/17/2025 7:54 [...] 05/17/2025 7:55 PM EST [facility] Brick Handler ID Ron Lal 7:55 PM EST [facility] Device ID [id number] 05/17/2025 7:55 PM EST [facility] Specimen Type POC Capillary 05/17/2025 7:55 PM EST [facility] Blood Capillary blood specimen / Unknown 05/17/2025 7:54 PM EST 05/17/2025 7:55 PM EST [employer]end[employer] R Jay Jay DO LAB POINT OF CARE TE ST DOCKED DEVICE UNSOLICITED RESULTS Final Result Performing Organization Address City/[facility]/ZIP Co de Phone Number [facility] [address] [place] [address] * (ABNORMAL) POCT glucose meter (05/17/2025 5:13 PM EST) [facility] POCT Glucose 186(H) 74 - 99 [...] Comment 05/17/2025 5:14 PM EST [facility]ARE [facility] Brick Handler ID Char Hinojosa 05/17/2025 5:14 PM EST [facility] Device ID [id number] 05/17/2025 5:14 PM EST [facility] Specimen Type POC Capillary 05/17/2025 5:14 PM EST [facility] Blood Capillary blood specimen / Unknown 05/17/2025 5:13 PM EST 05/17/2025 5:14 PM EST [employer] R Jay Jay DO LAB POINT OF CARE TE ST DOCKED DEVICE UNSOLICITED RESULTS Final Result Performing Organization Address City/[facility]/ZIP Co de Phone Number [facility] [address] [place] [address] * (ABNORMAL) POCT glucose meter (05/17/2025 1:01 PM EST) [facility] POCT Glucose 191(H) 74 - 99 mg/dL 05/31/2025 3:12 PM EST [facility] Comment:Accuracy of a glucos e result [...] Comment 05/31/2025 3:12 PM EST [facility] Brick Handler ID Char Hinojosa 05/31/2025 3:12 PM EST [facility] Device ID [id number] 05/31/2025 3:12 PM EST [facility] Specimen Type POC Capillary 05/31/2025 3:12 PM EST [facility] Blood Capillary blood specimen / Unknown 05/17/2025 1:01 PM EST 05/31/2025 3:12 PM EST Wily Goyal DO LAB POINT OF CARE TE ST DOCKED DEVICE UNSOLICITED RESULTS Final Result Performing Organization Address City/State/[facility] Co de Phone Number [facility] [address] [place] [address] * ECHO, ADULT TRANSTHORACIC COMPLETE W/ CONTRAST (05/17/2025 9:51 AM EST) Pathologist [facility] BSA 3.30 m2 HANK ISCV [...] Ao Diam 37 mm HANK ISCV PA [place](ACCEL) 24.6 mmHg HANK ISCV LV mean PG [...] is no recent study available for direct [id number] comparison. Left Ventricle The left ventricle is [...] is no recent study available for direct [id number] comparison. [facility] PROCEDURES Final Result * (ABNORMAL) POCT glucose meter (05/17/2025 8:52 AM EST) POCT Glucose 225(H) 74 - 99 mg/dL 05/31/2025 3:12 PM EST [facility] Comment:Accuracy of a glucos e result [...] for testing. Comment 05/31/2025 3:12 PM EST [facility] Brick Handler ID Char Hinojosa 05/31/2025 3:12 PM EST [facility] LAB Device ID [id number] 05/31/2025 3:12 PM EST [facility] Specimen Type POC Capillary 05/31/2025 3:12 PM EST [facility] Blood Capillary blood specimen / Unknown 05/17/2025 8:52 AM EST 05/31/2025 3:12 PM EST [facility] POINT OF CARE TE ST DOCKED DEVICE UNSOLICITED RESULTS Final Result [facility] [address] [place] [address] * (ABNORMAL) POCT glucose meter (05/16/2025 9:28 PM EST) POCT Glucose 199(H) 74 - 99 mg/dL 05/31/2025 3:12 PM EST [facility] Comment:Accuracy of a glucos e result [...] 05/31/2025 3:12 PM EST [facility] Brick Handler ID Jamal Soriano 3:12 PM EST [facility] Device ID [id number] 05/31/2025 3:12 PM EST [facility] Specimen Type POC Capillary 05/31/2025 3:12 PM EST [facility] Blood Capillary blood specimen / Unknown 05/16/2025 9:28 PM EST 05/31/2025 3:12 PM EST Wily Goyal DO LAB POINT OF CARE TE ST DOCKED DEVICE UNSOLICITED RESULTS Final Result Performing Organization Address City/State/[facility] de Phone Number [facility] [address] [place] [address] * (ABNORMAL) POCT glucose meter (05/16/2025 5:37 PM EST) [facility] POCT Glucose 283(H) 74 - 99 mg/dL 05/16/2025 5:39 PM EST [facility] Comment:Accuracy of a [...] 05/16/2025 5:39 PM EST [facility] Brick Handler ID Char Hinojosa 05/16/2025 5:39 PM EST [facility] Device ID [id number] 05/16/2025 5:39 PM EST [facility] Specimen Type POC Capillary 05/16/2025 5:39 PM EST [facility] Blood Capillary blood specimen / Unknown 05/16/2025 5:37 PM EST 05/16/2025 5:39 PM EST Kazar Rodrick Goyal DO LAB POINT OF CARE TE ST DOCKED DEVICE UNSOLICITED RESULTS Final Result Performing Organization Address City/[facility]/ZIP Co de Phone Number [facility] [address] [place] [address] * ECG Adult (05/16/2025 3:33 PM EST) Pathologist [facility] EKG DIAGNOSIS CLASS Abnormal MUSE ECG Ventricular Rate 58 BPM MUSE ECG Atrial Rate 58 BPM MUSE ECG [place] Interval 184 ms MUSE ECG QRSD Interval 158 ms MUSE ECG QT Interval 496 ms MUSE ECG QTC Interval 486 ms MUSE ECG P [place] 30 degrees MUSE ECG R [place] -35 degrees MUSE ECG T Wave [place] -5 degrees MUSE ECG Diagnosis Sinus bradycardia MUSE ECG Diagnosis Left axis deviation MUSE ECG Diagnosis Right bundle branch block MUSE ECG Diagnosis Minimal voltage criteria for LVH, may be normal variant ( R in aVL ) MUSE ECG Diagnosis Abnormal ECG MUSE ECG Diagnosis MUSE ECG Diagnosis Confirmed by Lorie Montejo ([id number]) on 05/18/2025 12:15:08 AM MUSE ECG 05/16/2025 3:33 PM EST 05/18/2025 12:15 AM EST Umar R Jay Jay DO ECG ORDERABLES Final Result Performing Organization Address City/[facility] Co de Phone Number MUSE ECG * (ABNORMAL) POCT glucose meter (05/16/2025 12:06 PM EST) [facility] POCT Glucose 161(H) 74 - 99 mg/dL [...] 05/16/2025 12:07 PM EST [facility] Brick Handler ID Char Hinojosa 05/16/2025 12:07 PM EST [facility] Device ID [id number] 05/16/2025 12:07 PM EST [facility] Specimen Type POC Capillary 05/16/2025 12:07 PM EST [facility] Blood Capillary blood specimen / Unknown 05/16/2025 12:06 PM EST 05/16/2025 12:07 PM EST us Selin Lee MD LAB POINT OF CARE TE ST DOCKED DEVICE UNSOLICITED RESULTS Final Result Performing Organization Address [facility] de Phone Number [facility] [address] [place] [address] * (ABNORMAL) POCT glucose meter (05/16/2025 8:17 [...] Comment 05/16/2025 8:21 AM EST [facility] Brick Handler ID Char Hinojosa 05/16/2025 8:21 AM EST [facility] LAB Device ID [id number] 05/16/2025 8:21 AM EST [facility] Specimen Type POC Capillary 05/16/2025 8:21 AM EST [facility] Blood Capillary blood specimen / Unknown 05/16/2025 8:17 AM EST 05/16/2025 8:21 AM EST us Selin Lee MD LAB POINT OF CARE TE ST DOCKED DEVICE UNSOLICITED RESULTS Final Result Performing Organization Address City/[facility] Co de Phone Number [facility] [address] [place] [address] * (ABNORMAL) CBC and Differential (05/16/2025 4:08 AM EST) WBC Count 7.97 3.70 - 10.30 10*3/uL LAB HEMATOLOGY METHOD 05/16/2025 4:26 AM EST [facility] RBC Count 4.27(L) 4.60 - 6.10 10*6/uL LAB HEMATOLOGY METHOD 05/16/2025 4:26 AM EST [facility] HGB 9.5(L) 13.7 - 17.5 g/dL LAB HEMATOLOGY METHOD 05/16/2025 4:26 AM [facility] HCT 31.6(L) 40.0 - 51.0 % LAB HEMATOLOGY METHOD 05/16/2025 4:26 AM [facility] Platelet Count 264 155 - 369 10*3/uL LAB HEMATOLOGY METHOD 05/16/2025 4:26 AM [facility] MCV 74(L) 79 - 98 fL LAB HEMATOLOGY METHOD 05/16/2025 4:26 AM [facility] MCH 22.2(L) 26.0 - 32.0 pg LAB HEMATOLOGY METHOD 05/16/2025 4:26 AM [facility] MCHC 30.1(L) 30.7 - 35.5 g/dL LAB HEMATOLOGY METHOD 05/16/2025 4:26 AM [facility] RDW 17.9(H) 11.5 - 14.5 % LAB HEMATOLOGY METHOD 05/16/2025 4:26 AM [facility] MPV 9.2 8.8 - 12.5 fL LAB HEMATOLOGY METHOD 05/16/2025 4:26 AM [facility] nRBC 0.0 <=0.0 per 100 WBCs LAB HEMATOLOGY METHOD 05/16/2025 4:26 AM [facility] Differential Type Automated LAB HEMATOLOGY METHOD 05/16/2025 4:26 AM [facility] Neutrophils % 67 % LAB HEMATOLOGY METHOD 05/16/2025 4:26 AM [facility] Lymphocytes % 16 % LAB HEMATOLOGY METHOD 05/16/2025 4:26 AM [facility] Monocytes % 12 % LAB HEMATOLOGY METHOD 05/16/2025 4:26 AM [facility] Eosinophils % 3 % LAB HEMATOLOGY METHOD 05/16/2025 4:26 AM [facility] Basophils % 1 % LAB HEMATOLOGY METHOD 05/16/2025 4:26 AM [facility] Immature Granulocytes % 1 % LAB HEMATOLOGY METHOD 05/16/2025 4:26 AM [facility] Neutrophils Absolute 5.39 1.60 - 6.10 10*3/uL LAB HEMATOLOGY METHOD 05/16/2025 4:26 AM [facility] Lymphocytes Absolute 1.30 1.20 - 3.90 10*3/uL LAB HEMATOLOGY METHOD 05/16/2025 4:26 AM EST [facility] Monocytes Absolute 0.93(H) 0.30 - 0.90 10*3/uL LAB HEMATOLOGY METHOD 05/16/2025 4:26 AM EST [facility] Eosinophils Absolute 0.26 0.00 - 0.50 10*3/uL LAB HEMATOLOGY METHOD 05/16/2025 4:26 AM EST [facility] Basophils Absolute 0.05 0.00 - 0.10 10*3/uL LAB HEMATOLOGY METHOD 05/16/2025 4:26 AM EST [facility] Immature Granulocytes Absolute 0.04 0.00 - 0.06 10*3/uL LAB HEMATOLOGY METHOD 05/16/2025 4:26 AM EST [facility] Blood Venous blood specimen / Unknown Venipuncture / Unknown 05/16/2025 4:08 AM EST 05/16/2025 4:17 AM EST Narrative [facility] - 05/16/2025 4:26 AM EST Therapeutic decision making should be based on absolute values, rather than percentages. Selin Lee MD LAB BLOOD ORDERABLES Final Re sult Performing Organization Address City/[facility]/ZIP Co de Phone Number [facility] [address] [place] [address] * (ABNORMAL) Magnesium, Plasma (05/16/2025 4:08 AM EST) Magnesium, Plasma 1.8(L) 1.9 - 2.4 mg/dL 05/16/2025 4:48 AM EST [facility] Blood Venous blood specimen / Unknown Venipuncture / Unknown 05/16/2025 4:08 AM EST 05/16/2025 4:16 AM EST Selin Lee MD LAB BLOOD ORDERABLES Final Re sult [facility] [address] [place] [address] * (ABNORMAL) Basic Metabolic Panel, Plasma (05/16/2025 4:08 AM EST) Glucose, Plasma 168(H) 74 - 99 mg/dL 05/16/2025 4:48 AM EST [facility] BUN, Plasma 19 7 - 21 mg/dL 05/16/2025 4:48 AM EST [facility] Creatinine, Plasma 0.86 0.70 - 1.20 mg/dL 05/16/2025 4:48 AM EST [facility] BUN/Creatinine Ratio 22 05/16/2025 4:48 AM EST [facility] Sodium, Plasma 131(L) 136 - 145 mmol/L 05/16/2025 4:48 AM EST [facility] Potassium, Plasma 3.6 3.6 - 4.9 mmol/L 05/16/2025 4:48 AM EST [facility] Chloride, Plasma 88(L) 97 - 107 mmol/L 05/16/2025 4:48 AM EST [facility] CO2, Plasma 34(H) 22 - 29 mmol/L 05/16/2025 4:48 AM EST [facility] Anion Gap 9 6 - 16 mmol/L 05/16/2025 4:48 AM EST [facility] Total Calcium, Plasma 9.3 8.9 - 10.2 mg/dL 05/16/2025 4:48 AM EST [facility] eGFRcr 107.5 mL/min/1.7 3m*2 05/16/2025 4:48 AM EST [facility] Comment:Reported eGFRcr in m L/min/1.73m2 is based the CKD-EPI 2020 equation that does not use a race coefficient. Blood Venous blood specimen / Unknown Venipuncture / Unknown 05/16/2025 4:08 AM EST 05/16/2025 4:16 AM EST us Selin Lee MD LAB BLOOD ORDERABLES Final Re sult [facility] [address] [place] [address] * Phosphorus, Plasma (05/16/2025 4:08 AM EST) Phosphorus, Plasma 3.7 2.5 - 4.5 mg/dL 05/16/2025 4:48 AM EST [facility] Blood Venous blood specimen / Unknown Venipuncture / Unknown 05/16/2025 4:08 AM EST 05/16/2025 4:16 AM EST us Selin Lee MD LAB BLOOD ORDERABLES Final Re sult Performing Organization Address City/[facility]/ZIP Co de Phone Number [facility] [address] [place] [address] * (ABNORMAL) POCT glucose meter (05/15/2025 8:00 PM EST) POCT Glucose 190(H) 74 - 99 mg/dL [...] Comment 05/15/2025 8:02 PM EST [facility] Brick Handler ID ShannanTimo 8:02 PM EST [facility] Device ID [id number] 05/15/2025 8:02 PM EST [facility] Specimen Type POC Capillary 05/15/2025 8:02 PM EST [facility] Blood Capillary blood specimen / Unknown 05/15/2025 8:00 PM EST 05/15/2025 8:02 PM EST us Selin Lee MD LAB POINT OF CARE TE ST DOCKED DEVICE UNSOLICITED RESULTS Final Result [facility] [address] [place] [address] * (ABNORMAL) POCT glucose meter (05/15/2025 4:52 [...] 05/15/2025 4:53 PM EST [facility] Brick Handler ID Char Hinojosa 05/15/2025 4:53 PM EST [facility] Device ID [id number] 05/15/2025 4:53 PM EST [facility] Specimen Type POC Capillary 05/15/2025 4:53 PM EST [facility] Blood Capillary blood specimen / Unknown 05/15/2025 4:52 PM EST 05/15/2025 4:53 PM EST us Selin Lee MD LAB POINT OF CARE TE ST DOCKED DEVICE UNSOLICITED RESULTS Final Result Performing Organization Address City/State/[facility] Co de Phone Number [facility] [address] [place] [address] * (ABNORMAL) POCT glucose meter (05/15/2025 12:46 PM EST) [facility] POCT Glucose 233(H) 74 - 99 [...] 05/15/2025 12:48 PM EST [facility] Brick Handler ID Santy Garcia 05/15/2025 12:48 PM EST [facility] Device ID [id number] 05/15/2025 12:48 PM EST [facility] Specimen Type POC Capillary 05/15/2025 12:48 PM EST [facility] Blood Capillary blood specimen / Unknown 05/15/2025 12:46 PM EST 05/15/2025 12:48 PM EST us Selin Lee MD LAB POINT OF CARE TE ST DOCKED DEVICE UNSOLICITED RESULTS Final Result Performing Organization Address [facility] Co de Phone Number [facility] [address] [place] [address] * (ABNORMAL) POCT glucose meter (05/15/2025 11:31 AM EST) [facility] POCT Glucose 235(H) 74 - 99 [...] for testing. Comment 05/15/2025 11:33 AM EST [facility] Brick Handler ID Char Hinojosa 05/15/2025 11:33 AM EST [facility] Device ID [id number] 05/15/2025 11:33 AM EST [facility] Specimen Type POC Capillary 05/15/2025 11:33 AM EST [facility] Blood Capillary blood specimen / Unknown 05/15/2025 11:31 AM EST 05/15/2025 11:33 AM EST Selin Lee MD LAB POINT OF CARE TE ST DOCKED DEVICE UNSOLICITED RESULTS Final Result Performing Organization Address [facility] de Phone Number [facility] [address] [place] [address] * (ABNORMAL) POCT glucose meter (05/15/2025 8:12 AM EST) [facility] POCT Glucose 175(H) 74 - 99 mg/dL [...] for testing. Comment 05/15/2025 8:14 AM EST [facility] Brick Handler ID Char Hinojosa 05/15/2025 8:14 AM EST [facility] Device ID [id number] 05/15/2025 8:14 AM EST [facility] Specimen Type POC Capillary 05/15/2025 8:14 AM EST [facility] Blood Capillary blood specimen / Unknown 05/15/2025 8:12 AM EST 05/15/2025 8:14 AM EST us Selin Lee MD LAB POINT OF CARE TE ST DOCKED DEVICE UNSOLICITED RESULTS Final Result [facility] [address] [place] [address] * (ABNORMAL) CBC and Differential (05/15/2025 2:24 AM EST) WBC Count 8.81 3.70 - 10.30 10*3/uL LAB HEMATOLOGY METHOD 05/15/2025 2:41 AM EST [facility] RBC Count 4.49(L) 4.60 - 6.10 10*6/uL LAB HEMATOLOGY METHOD 05/15/2025 2:41 AM EST [facility] HGB 9.9(L) 13.7 - 17.5 g/dL LAB HEMATOLOGY METHOD 05/15/2025 2:41 AM EST [facility] HCT 33.3(L) 40.0 - 51.0 % LAB HEMATOLOGY METHOD 05/15/2025 2:41 AM EST [facility] Platelet Count 286 155 - 369 10*3/uL LAB HEMATOLOGY METHOD 05/15/2025 2:41 AM EST [facility] MCV 74(L) 79 - 98 fL LAB HEMATOLOGY METHOD 05/15/2025 2:41 AM EST [facility] MCH 22.0(L) 26.0 - 32.0 pg LAB HEMATOLOGY METHOD 05/15/2025 2:41 AM EST [facility] MCHC 29.7(L) 30.7 - 35.5 g/dL LAB HEMATOLOGY METHOD 05/15/2025 2:41 AM EST [facility] RDW 17.8(H) 11.5 - 14.5 % LAB HEMATOLOGY METHOD 05/15/2025 2:41 AM EST [facility] MPV 9.4 8.8 - 12.5 fL LAB HEMATOLOGY METHOD 05/15/2025 2:41 AM [facility] nRBC 0.0 <=0.0 per 100 WBCs LAB HEMATOLOGY METHOD 05/15/2025 2:41 AM EST [facility] Differential Type Automated LAB HEMATOLOGY METHOD 05/15/2025 2:41 AM [facility] Neutrophils % 71 % LAB HEMATOLOGY METHOD 05/15/2025 2:41 AM EST [facility] Lymphocytes % 14 % LAB HEMATOLOGY METHOD 05/15/2025 2:41 AM EST [facility] Monocytes % 11 % LAB HEMATOLOGY METHOD 05/15/2025 2:41 AM [facility] Eosinophils % 3 % LAB HEMATOLOGY METHOD 05/15/2025 2:41 AM EST [facility] Basophils % 1 % LAB HEMATOLOGY METHOD 05/15/2025 2:41 AM [facility] Immature Granulocytes % 0 % LAB HEMATOLOGY METHOD 05/15/2025 2:41 AM EST [facility] Neutrophils Absolute 6.25(H) 1.60 - 6.10 10*3/uL LAB HEMATOLOGY METHOD 05/15/2025 2:41 AM EST [facility] Lymphocytes Absolute 1.27 1.20 - 3.90 10*3/uL LAB HEMATOLOGY METHOD 05/15/2025 2:41 AM [facility] Monocytes Absolute 0.95(H) 0.30 - 0.90 10*3/uL LAB HEMATOLOGY METHOD 05/15/2025 2:41 AM [facility] Eosinophils Absolute 0.27 0.00 - 0.50 10*3/uL LAB HEMATOLOGY METHOD 05/15/2025 2:41 AM EST [facility] Basophils Absolute 0.04 0.00 - 0.10 10*3/uL LAB HEMATOLOGY METHOD 05/15/2025 2:41 AM [facility] Immature Granulocytes Absolute 0.03 0.00 - 0.06 10*3/uL LAB HEMATOLOGY METHOD 05/15/2025 2:41 AM [facility] Blood Venous blood specimen / Unknown Venipuncture / Unknown 05/15/2025 2:24 AM EST 05/15/2025 2:33 AM EST [facility] - 05/15/2025 2:41 AM EST Therapeutic decision making should be based on absolute values, rather than percentages. us Selin Lee MD LAB BLOOD ORDERABLES Final Re sult Performing Organization Address City/[facility]/ZIP Co de Phone Number [facility] [address] [place] [address] * (ABNORMAL) Magnesium, Plasma (05/15/2025 2:24 AM EST) Magnesium, Plasma 1.8(L) 1.9 - 2.4 mg/dL 05/15/2025 3:03 AM EST [facility] Blood Venous blood specimen / Unknown Venipuncture / Unknown 05/15/2025 2:24 AM EST 05/15/2025 2:32 AM EST us Selin Lee MD LAB BLOOD ORDERABLES Final Re sult Performing Organization Address [facility] Co de Phone Number [facility] [address] [place] [address] * (ABNORMAL) Basic Metabolic Panel, Plasma (05/15/2025 2:24 AM EST) Glucose, Plasma 162(H) 74 - 99 mg/dL 05/15/2025 3:03 AM EST [facility] BUN, Plasma 15 7 - 21 mg/dL 05/15/2025 3:03 AM EST [facility] Creatinine, Plasma 0.91 0.70 - 1.20 mg/dL 05/15/2025 3:03 AM EST [facility] BUN/Creatinine Ratio 16 05/15/2025 3:03 AM EST [facility] Sodium, Plasma 133(L) 136 - 145 mmol/L 05/15/2025 3:03 AM EST [facility] Potassium, Plasma 3.3(L) 3.6 - 4.9 mmol/L 05/15/2025 3:03 AM EST [facility] Chloride, Plasma 87(L) 97 - 107 mmol/L 05/15/2025 3:03 AM EST [facility] CO2, Plasma 37(H) 22 - 29 mmol/L 05/15/2025 3:03 AM EST [facility] Anion Gap 9 6 - 16 mmol/L 05/15/2025 3:03 AM EST [facility] Total Calcium, Plasma 9.2 8.9 - 10.2 mg/dL 05/15/2025 3:03 AM EST [facility] eGFRcr 104.6 mL/min/1.7 3m*2 05/15/2025 3:03 AM EST [facility] Comment:Reported eGFRcr in m L/min/1.73m2 is based the CKD-EPI 2020 equation that does not use a race coefficient. Blood Venous blood specimen / Unknown Venipuncture / Unknown 05/15/2025 2:24 AM EST 05/15/2025 2:32 AM EST us Selin Lee MD LAB BLOOD ORDERABLES Final Re sult Performing Organization Address [facility] Co de Phone Number [facility] [address] [place] [address] * Phosphorus, Plasma (05/15/2025 2:24 AM EST) Phosphorus, Plasma 3.7 2.5 - 4.5 mg/dL 05/15/2025 3:03 AM EST [facility] Blood Venous blood specimen / Unknown Venipuncture / Unknown 05/15/2025 2:24 AM EST 05/15/2025 2:32 AM EST us Selin Lee MD LAB BLOOD ORDERABLES Final Re sult Performing Organization Address City/[facility] Co de Phone Number [facility] [address] [place] [address] * (ABNORMAL) POCT glucose meter (05/14/2025 8:09 PM EST) POCT Glucose 194(H) 74 - 99 mg/dL 05/14/2025 8:11 PM EST [facility] Comment:Accuracy of a glucos e [...] 05/14/2025 8:11 PM EST [facility] Brick Handler ID Stella Coleman 05/14/20 8:11 PM EST [facility] Device ID [id number] 05/14/2025 8:11 PM EST [facility] Specimen Type POC Capillary 05/14/2025 8:11 PM EST [facility] Blood Capillary blood specimen / Unknown 05/14/2025 8:09 PM EST 05/14/2025 8:11 PM EST us Selin Lee MD LAB POINT OF CARE TE ST DOCKED DEVICE UNSOLICITED RESULTS Final Result Performing Organization Address City/[facility] Co de Phone Number [facility] [address] [place] [address] * (ABNORMAL) POCT glucose meter (05/14/2025 5:10 PM EST) POCT Glucose 320(H) 74 - 99 mg/dL [...] 05/14/2025 5:13 PM EST [facility] Brick Handler ID Dunia Montgomery 05/14/2025 5:13 PM EST [facility] Device ID [id number] 05/14/2025 5:13 PM EST [facility] Specimen Type POC Capillary 05/14/2025 5:13 PM EST [facility] Blood Capillary blood specimen / Unknown 05/14/2025 5:10 PM EST 05/14/2025 5:13 PM EST us Selin Lee MD LAB POINT OF CARE TE ST DOCKED DEVICE UNSOLICITED RESULTS Final Result [facility] [address] [place] [address] * (ABNORMAL) POCT glucose meter (05/14/2025 12:15 PM EST) [facility] POCT Glucose 260(H) 74 - 99 [...] 05/14/2025 4:51 PM EST [facility] Brick Handler ID Dunia Montgomery 05/14/2025 4:51 PM EST [facility] Device ID [id number] 05/14/2025 4:51 PM EST [facility] Specimen Type POC Capillary 05/14/2025 4:51 PM EST [facility] Blood Capillary blood specimen / Unknown 05/14/2025 12:15 PM EST 05/14/2025 4:51 PM EST Selin Lee MD LAB POINT OF CARE TE ST DOCKED DEVICE UNSOLICITED RESULTS Final Result Performing Organization Address City/State/[facility] Co de Phone Number [facility] [address] [place] [address] * (ABNORMAL) POCT glucose meter (05/14/2025 8:30 AM EST) [facility] POCT Glucose 321(H) 74 - 99 [...] 05/14/2025 8:33 AM EST [facility] Brick Handler ID Dunia Montgomery 05/14/2025 8:33 AM EST [facility] Device ID [id number] 05/14/2025 8:33 AM EST [facility] Specimen Type POC Capillary 05/14/2025 8:33 AM EST [facility] Blood Capillary blood specimen / Unknown 05/14/2025 8:30 AM EST 05/14/2025 8:33 AM EST us Selin Lee MD LAB POINT OF CARE TE ST DOCKED DEVICE UNSOLICITED RESULTS Final Result Performing Organization Address [facility] de Phone Number [facility] [address] [place] [address] * (ABNORMAL) POCT glucose meter (05/14/2025 4:49 AM EST) [facility] POCT Glucose 306(H) 74 - 99 [...] Comment 05/31/2025 3:12 PM EST [facility] Brick Handler ID Asiya Nix 025 3:12 PM EST [facility] Device ID [id number] 05/31/2025 3:12 PM EST [facility] Specimen Type POC Capillary 05/31/2025 3:12 PM EST [facility] Blood Capillary blood specimen / Unknown 05/14/2025 4:49 AM EST 05/31/2025 3:12 PM EST us Wily Goyal DO LAB POINT OF CARE TE ST DOCKED DEVICE UNSOLICITED RESULTS Final Result Performing Organization Address City/[facility] Co de Phone Number [facility] [address] [place] [address] * (ABNORMAL) CBC and Differential (05/14/2025 1:45 AM EDT) Pathologist [facility] WBC Count 7.88 3.70 - 10.30 10*3/uL LAB HEMATOLOGY METHOD 05/14/2025 2:47 AM EST [facility] RBC Count 4.25(L) 4.60 - 6.10 10*6/uL LAB HEMATOLOGY METHOD 05/14/2025 2:47 AM EST [facility] HGB 9.7(L) 13.7 - 17.5 g/dL LAB HEMATOLOGY METHOD 05/14/2025 2:47 AM EST [facility] HCT 31.7(L) 40.0 - 51.0 % LAB HEMATOLOGY METHOD 05/14/2025 2:47 AM EST [facility] Platelet Count 273 155 - 369 10*3/uL LAB HEMATOLOGY METHOD 05/14/2025 2:47 AM EST [facility] MCV 75(L) 79 - 98 fL LAB HEMATOLOGY METHOD 05/14/2025 2:47 AM EST [facility] MCH 22.8(L) 26.0 - 32.0 pg LAB HEMATOLOGY METHOD 05/14/2025 2:47 AM EST [facility] MCHC 30.6(L) 30.7 - 35.5 g/dL LAB HEMATOLOGY METHOD 05/14/2025 2:47 AM [facility] RDW 17.9(H) 11.5 - 14.5 % LAB HEMATOLOGY METHOD 05/14/2025 2:47 AM EST [facility] MPV 9.6 8.8 - 12.5 fL LAB HEMATOLOGY METHOD 05/14/2025 2:47 AM [facility] nRBC 0.0 <=0.0 per 100 WBCs LAB HEMATOLOGY METHOD 05/14/2025 2:47 AM [facility] Differential Type Automated LAB HEMATOLOGY METHOD 05/14/2025 2:47 AM [facility] Neutrophils % 66 % LAB HEMATOLOGY METHOD 05/14/2025 2:47 AM EST [facility] Lymphocytes % 18 % LAB HEMATOLOGY METHOD 05/14/2025 2:47 AM EST [facility] Monocytes % 11 % LAB HEMATOLOGY METHOD 05/14/2025 2:47 AM [facility] Eosinophils % 4 % LAB HEMATOLOGY METHOD 05/14/2025 2:47 AM EST [facility] Basophils % 1 % LAB HEMATOLOGY METHOD 05/14/2025 2:47 AM EST [facility] Immature Granulocytes % 0 % LAB HEMATOLOGY METHOD 05/14/2025 2:47 AM EST [facility] Neutrophils Absolute 5.20 1.60 - 6.10 10*3/uL LAB HEMATOLOGY METHOD 05/14/2025 2:47 AM EST [facility] Lymphocytes Absolute 1.44 1.20 - 3.90 10*3/uL LAB HEMATOLOGY METHOD 05/14/2025 2:47 AM EST [facility] Monocytes Absolute 0.85 0.30 - 0.90 10*3/uL LAB HEMATOLOGY METHOD 05/14/2025 2:47 AM EST [facility] Eosinophils Absolute 0.30 0.00 - 0.50 10*3/uL LAB HEMATOLOGY METHOD 05/14/2025 2:47 AM EST [facility] Basophils Absolute 0.06 0.00 - 0.10 10*3/uL LAB HEMATOLOGY METHOD 05/14/2025 2:47 AM EST [facility] Immature Granulocytes Absolute 0.03 0.00 - 0.06 10*3/uL LAB HEMATOLOGY METHOD 05/14/2025 2:47 AM EST [facility] Blood Venous blood specimen / Unknown Venipuncture / Unknown 05/14/2025 1:45 AM EDT 05/14/2025 2:24 AM EST Narrative [facility] - 05/14/2025 2:47 AM EST Therapeutic decision making should be based on absolute values, rather than percentages. us Selin Lee MD LAB BLOOD ORDERABLES Final Re sult Performing Organization Address City/[facility]/ZIP Co de Phone Number [facility] [address] [place] [address] * (ABNORMAL) Magnesium, Plasma (05/14/2025 1:45 AM EDT) Magnesium, Plasma 1.7(L) 1.9 - 2.4 mg/dL 05/14/2025 2:58 AM EST [facility] Blood Venous blood specimen / Unknown Venipuncture / Unknown 05/14/2025 1:45 AM EDT 05/14/2025 2:25 AM EST us Selin Lee MD LAB BLOOD ORDERABLES Final Re sult Performing Organization Address City/[facility]/ZIP Co de Phone Number [facility] [address] [place] [address] * (ABNORMAL) Basic Metabolic Panel, Plasma (05/14/2025 1:45 AM EDT) Glucose, Plasma 282(H) 74 - 99 mg/dL 05/14/2025 2:58 AM EST [facility] BUN, Plasma 16 7 - 21 mg/dL 05/14/2025 2:58 AM EST [facility] Creatinine, Plasma 0.85 0.70 - 1.20 mg/dL 05/14/2025 2:58 AM EST [facility] BUN/Creatinine Ratio 19 05/14/2025 2:58 AM EST [facility] Sodium, Plasma 132(L) 136 - 145 mmol/L 05/14/2025 2:58 AM EST [facility] Potassium, Plasma 3.5(L) 3.6 - 4.9 mmol/L 05/14/2025 2:58 AM EST [facility] Chloride, Plasma 87(L) 97 - 107 mmol/L 05/14/2025 2:58 AM EST [facility] CO2, Plasma 34(H) 22 - 29 mmol/L 05/14/2025 2:58 AM EST [facility] Anion Gap 11 6 - 16 mmol/L 05/14/2025 2:58 AM EST [facility] Total Calcium, Plasma 9.2 8.9 - 10.2 mg/dL 05/14/2025 2:58 AM EST [facility] eGFRcr 107.9 mL/min/1.7 3m*2 05/14/2025 2:58 AM EST [facility] Comment:Reported eGFRcr in m L/min/1.73m2 is based the CKD-EPI 2020 equation that does not use a race coefficient. Blood Venous blood specimen / Unknown Venipuncture / Unknown 05/14/2025 1:45 AM EDT 05/14/2025 2:25 AM EST us Selin Lee MD LAB BLOOD ORDERABLES Final Re sult [facility] [address] [place] [address] * Phosphorus, Plasma (05/14/2025 1:45 AM EDT) Phosphorus, Plasma 3.3 2.5 - 4.5 mg/dL 05/14/2025 2:58 AM EST [facility] Blood Venous blood specimen / Unknown Venipuncture / Unknown 05/14/2025 1:45 AM EDT 05/14/2025 2:25 AM EST Selin Lee MD LAB BLOOD ORDERABLES Final Re sult Performing Organization Address City/[facility]/ZIP Co de Phone Number [facility] [address] [place] [address] * (ABNORMAL) POCT glucose meter (05/13/2025 7:59 PM EDT) [facility] POCT Glucose 257(H) 74 - 99 [...] Comment 05/31/2025 3:12 PM EST [facility] Brick Handler ID Stella Coleman 05/31/20 3:12 PM EST [facility] Device ID [id number] 05/31/2025 3:12 PM EST [facility] Specimen Type POC Capillary 05/31/2025 3:12 PM EST [facility] Blood Capillary blood specimen / Unknown 05/13/2025 7:59 PM EDT 05/31/2025 3:12 PM EST us Wily Goyal DO LAB POINT OF CARE TE ST DOCKED DEVICE UNSOLICITED RESULTS Final Result Performing Organization Address City/[facility] Co de Phone Number [facility] [address] [place] [address] * (ABNORMAL) POCT glucose meter (05/13/2025 4:58 PM EDT) [facility] POCT Glucose 217(H) 74 - 99 [...] 05/13/2025 5:00 PM EDT [facility] Brick Handler ID Priyanka Negrete 05/13/20 5:00 PM EDT [facility] Device ID [id number] 05/13/2025 5:00 PM EDT [facility] Specimen Type POC Capillary 05/13/2025 5:00 PM EDT [facility] Blood Capillary blood specimen / Unknown 05/13/2025 4:58 PM EDT 05/13/2025 5:00 PM EDT Selin Lee MD LAB POINT OF CARE TE ST DOCKED DEVICE UNSOLICITED RESULTS Final Result Performing Organization Address City/State/[facility] Co de Phone Number [facility] [address] [place] [address] * (ABNORMAL) POCT glucose meter (05/13/2025 11:37 AM EDT) [facility] POCT Glucose 255(H) 74 - 99 mg/dL [...] 05/13/2025 11:41 AM EDT [facility] Brick Handler ID Priyanka Negrete 05/13/20 11:41 AM EDT [facility] Device ID [id number] 05/13/2025 11:41 AM EDT [facility] Specimen Type POC Capillary 05/13/2025 11:41 AM EDT [facility] Blood Capillary blood specimen / Unknown 05/13/2025 11:37 AM EDT 05/13/2025 11:41 AM EDT Selin Lee MD LAB POINT OF CARE TE ST DOCKED DEVICE UNSOLICITED RESULTS Final Result Performing Organization Address City/[facility] Co de Phone Number [facility] [address] [place] [address] * (ABNORMAL) POCT glucose meter (05/13/2025 7:42 AM EDT) [facility] POCT Glucose 233(H) 74 - 99 [...] Comment 05/13/2025 7:45 AM EDT [facility] Brick Handler ID Priyanka Negrete 05/13/20 7:45 AM EDT [facility] Device ID [id number] 05/13/2025 7:45 AM EDT [facility] Specimen Type POC Capillary 05/13/2025 7:45 AM EDT [facility] Blood Capillary blood specimen / Unknown 05/13/2025 7:42 AM EDT 05/13/2025 7:45 AM EDT us Selin Lee MD LAB POINT OF CARE TE ST DOCKED DEVICE UNSOLICITED RESULTS Final Result Performing Organization Address City/[facility]/ZIP Co de Phone Number [facility] [address] [place] [address] * (ABNORMAL) CBC and Differential (05/13/2025 3:54 AM EDT) [facility] WBC Count 7.92 3.70 - 10.30 10*3/uL LAB HEMATOLOGY METHOD 05/13/2025 4:11 AM EDT [facility] RBC Count 4.40(L) 4.60 - 6.10 10*6/uL LAB HEMATOLOGY METHOD 05/13/2025 4:11 AM EDT [facility] HGB 9.9(L) 13.7 - 17.5 g/dL LAB HEMATOLOGY METHOD 05/13/2025 4:11 AM EDT [facility] HCT 33.0(L) 40.0 - 51.0 % LAB HEMATOLOGY METHOD 05/13/2025 4:11 AM EDT [facility] Platelet Count 276 155 - 369 10*3/uL LAB HEMATOLOGY METHOD 05/13/2025 4:11 AM EDT [facility] MCV 75(L) 79 - 98 fL LAB HEMATOLOGY METHOD 05/13/2025 4:11 AM EDT [facility] MCH 22.5(L) 26.0 - 32.0 pg LAB HEMATOLOGY METHOD 05/13/2025 4:11 AM EDT [facility] MCHC 30.0(L) 30.7 - 35.5 g/dL LAB HEMATOLOGY METHOD 05/13/2025 4:11 AM EDT [facility] RDW 17.8(H) 11.5 - 14.5 % LAB HEMATOLOGY METHOD 05/13/2025 4:11 AM EDT [facility] MPV 9.3 8.8 - 12.5 fL LAB HEMATOLOGY METHOD 05/13/2025 4:11 AM EDT [facility] nRBC 0.0 <=0.0 per 100 WBCs LAB HEMATOLOGY METHOD 05/13/2025 4:11 AM EDT [facility] Differential Type Automated LAB HEMATOLOGY METHOD 05/13/2025 4:11 AM EDT [facility] Neutrophils % 69 % LAB HEMATOLOGY METHOD 05/13/2025 4:11 AM EDT [facility] Lymphocytes % 17 % LAB HEMATOLOGY METHOD 05/13/2025 4:11 AM EDT [facility] Monocytes % 10 % LAB HEMATOLOGY METHOD 05/13/2025 4:11 AM EDT [facility] Eosinophils % 3 % LAB HEMATOLOGY METHOD 05/13/2025 4:11 AM EDT [facility] Basophils % 1 % LAB HEMATOLOGY METHOD 05/13/2025 4:11 AM EDT [facility] Immature Granulocytes % 0 % LAB HEMATOLOGY METHOD 05/13/2025 4:11 AM EDT [facility] Neutrophils Absolute 5.47 1.60 - 6.10 10*3/uL LAB HEMATOLOGY METHOD 05/13/2025 4:11 AM EDT [facility] Lymphocytes Absolute 1.33 1.20 - 3.90 10*3/uL LAB HEMATOLOGY METHOD 05/13/2025 4:11 AM EDT [facility] Monocytes Absolute 0.78 0.30 - 0.90 10*3/uL LAB HEMATOLOGY METHOD 05/13/2025 4:11 AM EDT [facility] Eosinophils Absolute 0.27 0.00 - 0.50 10*3/uL LAB HEMATOLOGY METHOD 05/13/2025 4:11 AM EDT [facility] Basophils Absolute 0.04 0.00 - 0.10 10*3/uL LAB HEMATOLOGY METHOD 05/13/2025 4:11 AM EDT [facility] Immature Granulocytes Absolute 0.03 0.00 - 0.06 10*3/uL LAB HEMATOLOGY METHOD 05/13/2025 4:11 AM EDT [facility] Blood Venous blood specimen / Unknown Venipuncture / Unknown 05/13/2025 3:54 AM EDT 05/13/2025 4:01 AM EDT Narrative [facility] - 05/13/2025 4:11 AM EDT Therapeutic decision making should be based on absolute values, rather than percentages. us Selin Lee MD LAB BLOOD ORDERABLES Final Re sult Performing Organization Address [facility] Co de Phone Number [facility] [address] [place] [address] * Magnesium, Plasma (05/13/2025 3:54 AM EDT) Magnesium, Plasma 1.9 1.9 - 2.4 mg/dL 05/13/2025 4:28 AM EDT [facility] Blood Venous blood specimen / Unknown Venipuncture / Unknown 05/13/2025 3:54 AM EDT 05/13/2025 4:01 AM EDT us Selin Lee MD LAB BLOOD ORDERABLES Final Re sult Performing Organization Address City/[facility]/ZIP Co de Phone Number [facility] [address] [place] [address] * (ABNORMAL) Basic Metabolic Panel, Plasma (05/13/2025 3:54 AM EDT) Glucose, Plasma 238(H) 74 - 99 mg/dL 05/13/2025 4:28 AM EDT [facility] BUN, Plasma 16 7 - 21 mg/dL 05/13/2025 4:28 AM EDT [facility] Creatinine, Plasma 0.96 0.70 - 1.20 mg/dL 05/13/2025 4:28 AM EDT [facility] BUN/Creatinine Ratio 17 05/13/2025 4:28 AM EDT [facility] Sodium, Plasma 131(L) 136 - 145 mmol/L 05/13/2025 4:28 AM EDT [facility] Potassium, Plasma 3.3(L) 3.6 - 4.9 mmol/L 05/13/2025 4:28 AM EDT [facility] Chloride, Plasma 87(L) 97 - 107 mmol/L 05/13/2025 4:28 AM EDT [facility] CO2, Plasma 37(H) 22 - 29 mmol/L 05/13/2025 4:28 AM EDT [facility] Anion Gap 7 6 - 16 mmol/L 05/13/2025 4:28 AM EDT [facility] Total Calcium, Plasma 9.1 8.9 - 10.2 mg/dL 05/13/2025 4:28 AM EDT [facility] eGFRcr 98.1 mL/min/1.7 3m*2 05/13/2025 4:28 AM EDT [facility] Comment:Reported eGFRcr in m L/min/1.73m2 is based the CKD-EPI 2020 equation that does not use a race coefficient. Blood Venous blood specimen / Unknown Venipuncture / Unknown 05/13/2025 3:54 AM EDT 05/13/2025 4:01 AM EDT us Selin Lee MD LAB BLOOD ORDERABLES Final Re sult [facility] [address] [place] [address] * Phosphorus, Plasma (05/13/2025 3:54 AM EDT) [facility] Phosphorus, Plasma 3.3 2.5 - 4.5 mg/dL 05/13/2025 4:28 AM EDT [facility] Blood Venous blood specimen / Unknown Venipuncture / Unknown 05/13/2025 3:54 AM EDT 05/13/2025 4:01 AM EDT us Selin Lee MD LAB BLOOD ORDERABLES Final Re sult [facility] [address] [place] [address] * (ABNORMAL) POCT glucose meter (05/12/2025 7:40 PM EDT) [facility] POCT Glucose 248(H) 74 - 99 [...] Comment 05/12/2025 7:42 PM EDT [facility] Brick Handler ID Stella Coleman 05/12/20 7:42 PM EDT [facility] LAB Device ID [id number] 05/12/2025 7:42 PM EDT [facility] Specimen Type POC Capillary 05/12/2025 7:42 PM EDT [facility] Blood Capillary blood specimen / Unknown 05/12/2025 7:40 PM EDT 05/12/2025 7:42 PM EDT us Selin Lee MD LAB POINT OF CARE TE ST DOCKED DEVICE UNSOLICITED RESULTS Final Result [facility] [address] [place] [address] * (ABNORMAL) POCT glucose meter (05/12/2025 4:36 PM EDT) [facility] POCT Glucose 235(H) 74 - 99 mg/dL 05/12/2025 4:38 PM EDT [facility] Comment:Accuracy of a [...] Comment 05/12/2025 4:38 PM EDT [facility] Brick Handler ID Char Hinojosa 05/12/2025 4:38 PM EDT [facility] Device ID [id number] 05/12/2025 4:38 PM EDT [facility] Specimen Type POC Capillary 05/12/2025 4:38 PM EDT [facility] Blood Capillary blood specimen / Unknown 05/12/2025 4:36 PM EDT 05/12/2025 4:38 PM EDT Selin Lee MD LAB POINT OF CARE TE ST DOCKED DEVICE UNSOLICITED RESULTS Final Result [facility] [address] [place] [address] * (ABNORMAL) POCT glucose meter (05/12/2025 11:30 AM EDT) [facility] POCT Glucose 315(H) 74 - 99 [...] Comment 05/12/2025 11:32 AM EDT [facility] Brick Handler ID Char Hinojosa 05/12/2025 11:32 AM EDT [facility] Device ID [id number] 05/12/2025 11:32 AM EDT [facility]ALTHCARE LAB Specimen Type POC Capillary 05/12/2025 11:32 AM EDT [facility] Blood Capillary blood specimen / Unknown 05/12/2025 11:30 AM EDT 05/12/2025 11:32 AM EDT Selin Lee MD LAB POINT OF CARE TE ST DOCKED DEVICE UNSOLICITED RESULTS Final Result Performing Organization Address [facility] Co de Phone Number HEALTHCARE LAB [address] [place] [address] * (ABNORMAL) POCT glucose meter (05/12/2025 8:08 AM EDT) [facility] POCT Glucose 274(H) 74 - 99 [...] Comment 05/12/2025 8:10 AM EDT [facility]ALTHCARE LAB Brick Handler ID Char Hinojosa 05/12/2025 8:10 AM EDT HEALTHCARE LAB Device ID [id number] 05/12/2025 8:10 AM EDT [facility]ALTHCARE LAB Specimen Type POC Capillary 05/12/2025 8:10 AM EDT [facility]ALTHCARE LAB Blood Capillary blood specimen / Unknown 05/12/2025 8:08 AM EDT 05/12/2025 8:10 AM EDT Selin Lee MD LAB POINT OF CARE TE ST DOCKED DEVICE UNSOLICITED RESULTS Final Result Performing Organization Address City/[facility] Co de Phone Number [facility] [address] [place] [address] * (ABNORMAL) CBC and Differential (05/12/2025 3:56 AM EDT) [facility] WBC Count 7.24 3.70 - 10.30 10*3/uL LAB HEMATOLOGY METHOD 05/12/2025 4:15 AM EDT [facility] RBC Count 4.28(L) 4.60 - 6.10 10*6/uL LAB HEMATOLOGY METHOD 05/12/2025 4:15 AM EDT [facility] HGB 9.4(L) 13.7 - 17.5 g/dL LAB HEMATOLOGY METHOD 05/12/2025 4:15 AM EDT [facility] HCT 31.8(L) 40.0 - 51.0 % LAB HEMATOLOGY METHOD 05/12/2025 4:15 AM EDT [facility] Platelet Count 266 155 - 369 10*3/uL LAB HEMATOLOGY METHOD 05/12/2025 4:15 AM EDT [facility] MCV 74(L) 79 - 98 fL LAB HEMATOLOGY METHOD 05/12/2025 4:15 AM EDT [facility] MCH 22.0(L) 26.0 - 32.0 pg LAB HEMATOLOGY METHOD 05/12/2025 4:15 AM EDT [facility] MCHC 29.6(L) 30.7 - 35.5 g/dL LAB HEMATOLOGY METHOD 05/12/2025 4:15 AM EDT [facility] RDW 18.0(H) 11.5 - 14.5 % LAB HEMATOLOGY METHOD 05/12/2025 4:15 AM EDT [facility] MPV 9.6 8.8 - 12.5 fL LAB HEMATOLOGY METHOD 05/12/2025 4:15 AM EDT [facility] nRBC 0.0 <=0.0 per 100 WBCs LAB HEMATOLOGY METHOD 05/12/2025 4:15 AM EDT [facility] Differential Type Automated LAB HEMATOLOGY METHOD 05/12/2025 4:15 AM EDT [facility] Neutrophils % 71 % LAB HEMATOLOGY METHOD 05/12/2025 4:15 AM EDT [facility] Lymphocytes % 16 % LAB HEMATOLOGY METHOD 05/12/2025 4:15 AM EDT [facility] Monocytes % 9 % LAB HEMATOLOGY METHOD 05/12/2025 4:15 AM EDT [facility] Eosinophils % 3 % LAB HEMATOLOGY METHOD 05/12/2025 4:15 AM EDT [facility] Basophils % 1 % LAB HEMATOLOGY METHOD 05/12/2025 4:15 AM EDT [facility] Immature Granulocytes % 0 % LAB HEMATOLOGY METHOD 05/12/2025 4:15 AM EDT [facility] Neutrophils Absolute 5.14 1.60 - 6.10 10*3/uL LAB HEMATOLOGY METHOD 05/12/2025 4:15 AM EDT [facility] Lymphocytes Absolute 1.15(L) 1.20 - 3.90 10*3/uL LAB HEMATOLOGY METHOD 05/12/2025 4:15 AM EDT [facility] Monocytes Absolute 0.66 0.30 - 0.90 10*3/uL LAB HEMATOLOGY METHOD 05/12/2025 4:15 AM EDT [facility] Eosinophils Absolute 0.22 0.00 - 0.50 10*3/uL LAB HEMATOLOGY METHOD 05/12/2025 4:15 AM EDT [facility] Basophils Absolute 0.05 0.00 - 0.10 10*3/uL LAB HEMATOLOGY METHOD 05/12/2025 4:15 AM EDT [facility] Immature Granulocytes Absolute 0.02 0.00 - 0.06 10*3/uL LAB HEMATOLOGY METHOD 05/12/2025 4:15 AM EDT [facility] Blood Venous blood specimen / Unknown Venipuncture / Unknown 05/12/2025 3:56 AM EDT 05/12/2025 4:03 AM EDT Narrative [facility] - 05/12/2025 4:15 AM EDT Therapeutic decision making should be based on absolute values, rather than percentages. us Selin Lee MD LAB BLOOD ORDERABLES Final Re sult [facility] [address] [place] [address] * (ABNORMAL) Magnesium, Plasma (05/12/2025 3:56 AM EDT) Magnesium, Plasma 1.7(L) 1.9 - 2.4 mg/dL 05/12/2025 4:36 AM EDT [facility] Blood Venous blood specimen / Unknown Venipuncture / Unknown 05/12/2025 3:56 AM EDT 05/12/2025 4:03 AM EDT us Selin Lee MD LAB BLOOD ORDERABLES Final Re sult [facility] [address] [place] [address] * (ABNORMAL) Basic Metabolic Panel, Plasma (05/12/2025 3:56 AM EDT) Glucose, Plasma 383(H) 74 - 99 mg/dL 05/12/2025 4:36 AM EDT [facility] BUN, Plasma 18 7 - 21 mg/dL 05/12/2025 4:36 AM EDT [facility] Creatinine, Plasma 0.86 0.70 - 1.20 mg/dL 05/12/2025 4:36 AM EDT [facility] BUN/Creatinine Ratio 21 05/12/2025 4:36 AM EDT [facility] Sodium, Plasma 130(L) 136 - 145 mmol/L 05/12/2025 4:36 AM EDT [facility] Potassium, Plasma 3.2(L) 3.6 - 4.9 mmol/L 05/12/2025 4:36 AM EDT [facility] Chloride, Plasma 85(L) 97 - 107 mmol/L 05/12/2025 4:36 AM EDT [facility] CO2, Plasma 36(H) 22 - 29 mmol/L 05/12/2025 4:36 AM EDT [facility] Anion Gap 9 6 - 16 mmol/L 05/12/2025 4:36 AM EDT [facility] Total Calcium, Plasma 8.9 8.9 - 10.2 mg/dL 05/12/2025 4:36 AM EDT [facility] eGFRcr 107.5 mL/min/1.7 3m*2 05/12/2025 4:36 AM EDT [facility] Comment:Reported eGFRcr in m L/min/1.73m2 is based the CKD-EPI 2020 equation that does not use a race coefficient. Blood Venous blood specimen / Unknown Venipuncture / Unknown 05/12/2025 3:56 AM EDT 05/12/2025 4:03 AM EDT us Selin Lee MD LAB BLOOD ORDERABLES Final Re sult [facility] [address] [place] [address] * Phosphorus, Plasma (05/12/2025 3:56 AM EDT) [facility] Phosphorus, Plasma 2.8 2.5 - 4.5 mg/dL 05/12/2025 4:36 AM EDT [facility] Blood Venous blood specimen / Unknown Venipuncture / Unknown 05/12/2025 3:56 AM EDT 05/12/2025 4:03 AM EDT us Selin Lee MD LAB BLOOD ORDERABLES Final Re sult Performing Organization Address City/[facility] Co de Phone Number [facility] [address] [place] [address] * (ABNORMAL) POCT glucose meter (05/12/2025 3:11 AM EDT) [facility] POCT Glucose 348(H) 74 - 99 [...] 05/12/2025 3:13 AM EDT [facility] Brick Handler ID Mathew Edshuterikia 05/12/2025 3:13 AM EDT [facility] Device ID [id number] 05/12/2025 3:13 AM EDT [facility] Specimen Type POC Capillary 05/12/2025 3:13 AM EDT [facility] Blood Capillary blood specimen / Unknown 05/12/2025 3:11 AM EDT 05/12/2025 3:13 AM EDT us Selin Lee MD LAB POINT OF CARE TE ST DOCKED DEVICE UNSOLICITED RESULTS Final Result Performing Organization Address City/[facility]/ZIP Co de Phone Number HEALTHCARE LAB [address] [place] [address] * (ABNORMAL) POCT glucose meter (05/11/2025 7:57 PM EDT) [facility] POCT Glucose 272(H) 74 - 99 [...] Comment 05/11/2025 8:02 PM EDT [facility]ARE [facility] Brick Handler ID Joel Carmona 05/11/2025 8:02 PM EDT HEALTHCARE LAB Device ID [id number] 05/11/2025 8:02 PM EDT [facility]ARE LAB Specimen Type POC Capillary 05/11/2025 8:02 PM EDT [facility] LAB Blood Capillary blood specimen / Unknown 05/11/2025 7:57 PM EDT 05/11/2025 8:02 PM EDT Selin Lee MD LAB POINT OF CARE TE ST DOCKED DEVICE UNSOLICITED RESULTS Final Result Performing Organization Address City/State/[facility] Co de Phone Number HEALTHCARE LAB [address] [place] [id number] * (ABNORMAL) POCT glucose meter (05/11/2025 5:05 PM EDT) [facility] POCT Glucose 258(H) 74 - 99 [...] Comment 05/11/2025 5:07 PM EDT [facility]ALTH[facility]ARE [facility] Brick Handler ID Char Hinojosa 05/11/2025 5:07 PM EDT HEALTHCARE LAB Device ID [id number] 05/11/2025 5:07 PM EDT [facility] Specimen Type POC Capillary 05/11/2025 5:07 PM EDT [facility] Blood Capillary blood specimen / Unknown 05/11/2025 5:05 PM EDT 05/11/2025 5:07 PM EDT us Selin Lee MD LAB POINT OF CARE TE ST DOCKED DEVICE UNSOLICITED RESULTS Final Result Performing Organization Address City/[facility]/ZIP Co de Phone Number [facility] [address] [place] [address] * (ABNORMAL) POCT glucose meter (05/11/2025 12:13 PM EDT) POCT Glucose 240(H) 74 - 99 mg/dL [...] Comment 05/11/2025 12:15 PM EDT [facility]ALTH[facility]ARE LAB Brick Handler ID Char Hinojosa 05/11/2025 12:15 PM EDT HEALTHCARE LAB Device ID [id number] 05/11/2025 12:15 PM EDT [facility]ALTH[facility]ARE LAB Specimen Type POC Capillary 05/11/2025 12:15 PM EDT [facility] Blood Capillary blood specimen / Unknown 05/11/2025 12:13 PM EDT 05/11/2025 12:15 PM EDT us Selin Lee MD LAB POINT OF CARE TE ST DOCKED DEVICE UNSOLICITED RESULTS Final Result [facility] [address] [place] [address] * (ABNORMAL) POCT glucose meter (05/11/2025 7:57 [...] Comment 05/11/2025 7:59 AM EDT [facility]ALTH[facility]ARE LAB Brick Handler ID Char Hinojosa 05/11/2025 7:59 AM EDT HEALTHCARE LAB Device ID [id number] 05/11/2025 7:59 AM EDT [facility]ALTHCARE LAB Specimen Type POC Capillary 05/11/2025 7:59 AM EDT [facility]ARE LAB Blood Capillary blood specimen / Unknown 05/11/2025 7:57 AM EDT 05/11/2025 7:59 AM EDT us Selin Lee MD LAB POINT OF CARE TE ST DOCKED DEVICE UNSOLICITED RESULTS Final Result Performing Organization Address City/State/[facility] Co de Phone Number HEALTHCARE LAB [address] [place] [address] * ECG Adult (05/11/2025 6:11 AM EDT) EKG DIAGNOSIS CLASS Abnormal MUSE ECG Ventricular Rate 59 BPM MUSE ECG Atrial Rate 59 BPM MUSE ECG NY Interval 176 ms MUSE ECG QRSD Interval 160 ms MUSE ECG QT Interval 520 ms MUSE ECG QTC Interval 514 ms MUSE ECG P [place] 21 degrees MUSE ECG R [place] -32 degrees MUSE ECG T Wave [place] -9 degrees MUSE ECG Diagnosis Sinus bradycardia [...] MUSE ECG Diagnosis Confirmed by Tone Lainez ([id number]) on 05/12/2025 11:35:23 AM MUSE ECG 05/11/2025 6:11 AM EDT 05/12/2025 11:35 AM EDT us Selin Lee MD ECG ORDERABLES Final Result MUSE ECG * (ABNORMAL) POCT glucose meter (05/11/2025 3:42 AM EDT) [facility] POCT Glucose 336(H) 74 - 99 mg/dL 05/11/2025 3:45 AM EDT [facility] Comment:Accuracy of [...] for testing. Comment 05/11/2025 3:45 AM EDT [facility] Brick Handler ID Kaylin Barron 05/11/2025 3:45 AM EDT HEALTHCARE LAB Device ID [id number] 05/11/2025 3:45 AM EDT [facility]ALTH[facility]ARE LAB Specimen Type POC Capillary 05/11/2025 3:45 AM EDT [facility] Blood Capillary blood specimen / Unknown 05/11/2025 3:42 AM EDT 05/11/2025 3:45 AM EDT Selin Lee MD LAB POINT OF CARE TE ST DOCKED DEVICE UNSOLICITED RESULTS Final Result Performing Organization Address City/[facility]/ZIP Co de Phone Number [facility] [address] [place] [address] * (ABNORMAL) CBC and Differential (05/11/2025 3:24 AM EDT) [facility] WBC Count 6.72 3.70 - 10.30 10*3/uL LAB HEMATOLOGY METHOD 05/11/2025 3:42 AM EDT [facility] RBC Count 4.13(L) 4.60 - 6.10 10*6/uL LAB HEMATOLOGY METHOD 05/11/2025 3:42 AM EDT [facility] HGB 9.5(L) 13.7 - 17.5 g/dL LAB HEMATOLOGY METHOD 05/11/2025 3:42 AM EDT [facility] HCT 31.1(L) 40.0 - 51.0 % LAB HEMATOLOGY METHOD 05/11/2025 3:42 AM EDT [facility] Platelet Count 253 155 - 369 10*3/uL LAB HEMATOLOGY METHOD 05/11/2025 3:42 AM EDT [facility] MCV 75(L) 79 - 98 fL LAB HEMATOLOGY METHOD 05/11/2025 3:42 AM EDT [facility] MCH 23.0(L) 26.0 - 32.0 pg LAB HEMATOLOGY METHOD 05/11/2025 3:42 AM EDT [facility] MCHC 30.5(L) 30.7 - 35.5 g/dL LAB HEMATOLOGY METHOD 05/11/2025 3:42 AM EDT [facility] RDW 17.8(H) 11.5 - 14.5 % LAB HEMATOLOGY METHOD 05/11/2025 3:42 AM EDT [facility] MPV 9.5 8.8 - 12.5 fL LAB HEMATOLOGY METHOD 05/11/2025 3:42 AM EDT [facility] nRBC 0.0 <=0.0 per 100 WBCs LAB HEMATOLOGY METHOD 05/11/2025 3:42 AM EDT [facility] Differential Type Automated LAB HEMATOLOGY METHOD 05/11/2025 3:42 AM EDT [facility] Neutrophils % 68 % LAB HEMATOLOGY METHOD 05/11/2025 3:42 AM EDT [facility] Lymphocytes % 17 % LAB HEMATOLOGY METHOD 05/11/2025 3:42 AM EDT [facility] Monocytes % 11 % LAB HEMATOLOGY METHOD 05/11/2025 3:42 AM EDT [facility] Eosinophils % 3 % LAB HEMATOLOGY METHOD 05/11/2025 3:42 AM EDT [facility] Basophils % 1 % LAB HEMATOLOGY METHOD 05/11/2025 3:42 AM EDT [facility] Immature Granulocytes % 0 % LAB HEMATOLOGY METHOD 05/11/2025 3:42 AM EDT [facility] Neutrophils Absolute 4.61 1.60 - 6.10 10*3/uL LAB HEMATOLOGY METHOD 05/11/2025 3:42 AM EDT [facility] Lymphocytes Absolute 1.11(L) 1.20 - 3.90 10*3/uL LAB HEMATOLOGY METHOD 05/11/2025 3:42 AM EDT [facility] Monocytes Absolute 0.72 0.30 - 0.90 10*3/uL LAB HEMATOLOGY METHOD 05/11/2025 3:42 AM EDT [facility] Eosinophils Absolute 0.21 0.00 - 0.50 10*3/uL LAB HEMATOLOGY METHOD 05/11/2025 3:42 AM EDT [facility] Basophils Absolute 0.05 0.00 - 0.10 10*3/uL LAB HEMATOLOGY METHOD 05/11/2025 3:42 AM EDT [facility] Immature Granulocytes Absolute 0.02 0.00 - 0.06 10*3/uL LAB HEMATOLOGY METHOD 05/11/2025 3:42 AM EDT [facility] Blood Venous blood specimen / Unknown Venipuncture / Unknown 05/11/2025 3:24 AM EDT 05/11/2025 3:30 AM EDT Narrative [facility] - 05/11/2025 3:42 AM EDT Therapeutic decision making should be based on absolute values, rather than percentages. us Selin Lee MD LAB BLOOD ORDERABLES Final Re sult Performing Organization Address City/[facility]/ZIP Co de Phone Number [facility] [address] [place] [address] * (ABNORMAL) Magnesium, Plasma (05/11/2025 3:24 AM EDT) Magnesium, Plasma 1.8(L) 1.9 - 2.4 mg/dL 05/11/2025 3:58 AM EDT [facility] Blood Venous blood specimen / Unknown Venipuncture / Unknown 05/11/2025 3:24 AM EDT 05/11/2025 3:30 AM EDT us Selin Lee MD LAB BLOOD ORDERABLES Final Re sult [facility] [address] [place] [address] * (ABNORMAL) Basic Metabolic Panel, Plasma (05/11/2025 3:24 AM EDT) Glucose, Plasma 338(H) 74 - 99 mg/dL 05/11/2025 3:58 AM EDT [facility] BUN, Plasma 18 7 - 21 mg/dL 05/11/2025 3:58 AM EDT [facility] Creatinine, Plasma 0.86 0.70 - 1.20 mg/dL 05/11/2025 3:58 AM EDT [facility] BUN/Creatinine Ratio 21 05/11/2025 3:58 AM EDT [facility] Sodium, Plasma 131(L) 136 - 145 mmol/L 05/11/2025 3:58 AM EDT [facility] Potassium, Plasma 3.2(L) 3.6 - 4.9 mmol/L 05/11/2025 3:58 AM EDT [facility] Chloride, Plasma 85(L) 97 - 107 mmol/L 05/11/2025 3:58 AM EDT [facility] CO2, Plasma 39(H) 22 - 29 mmol/L 05/11/2025 3:58 AM EDT [facility] Anion Gap 7 6 - 16 mmol/L 05/11/2025 3:58 AM EDT [facility] Total Calcium, Plasma 9.1 8.9 - 10.2 mg/dL 05/11/2025 3:58 AM EDT [facility] eGFRcr 107.5 mL/min/1.7 3m*2 05/11/2025 3:58 AM EDT [facility] Comment:Reported eGFRcr in m L/min/1.73m2 is based the CKD-EPI 2020 equation that does not use a race coefficient. Blood Venous blood specimen / Unknown Venipuncture / Unknown 05/11/2025 3:24 AM EDT 05/11/2025 3:30 AM EDT us Selin Lee MD LAB BLOOD ORDERABLES Final Re sult [facility] [address] [place] [address] * Phosphorus, Plasma (05/11/2025 3:24 AM EDT) Phosphorus, Plasma 3.1 2.5 - 4.5 mg/dL 05/11/2025 3:58 AM EDT [facility] Blood Venous blood specimen / Unknown Venipuncture / Unknown 05/11/2025 3:24 AM EDT 05/11/2025 3:30 AM EDT Selin Lee MD LAB BLOOD ORDERABLES Final Re sult Performing Organization Address City/[facility]/ZIP Co de Phone Number [facility] [address] [place] [address] * (ABNORMAL) POCT glucose meter (05/10/2025 7:07 [...] Comment 05/10/2025 7:10 PM EDT [facility]ALTH[facility] Brick Handler ID Char Hinojosa 05/10/2025 7:10 PM EDT HEALTHCARE LAB Device ID [id number] 05/10/2025 7:10 PM EDT [facility] Specimen Type POC Capillary 05/10/2025 7:10 PM EDT [facility] Blood Capillary blood specimen / Unknown 05/10/2025 7:07 PM EDT 05/10/2025 7:10 PM EDT Selin Lee MD LAB POINT OF CARE TE ST DOCKED DEVICE UNSOLICITED RESULTS Final Result Performing Organization Address City/[facility]/ZIP Co de Phone Number [facility] [address] [place] [address] * (ABNORMAL) POCT glucose meter (05/10/2025 4:55 [...] Comment 05/10/2025 4:57 PM EDT [facility] Brick Handler ID Char Hinojosa 05/10/2025 4:57 PM EDT HEALTHCARE LAB Device ID [id number] 05/10/2025 4:57 PM EDT [facility]ALTH[facility]ARE LAB Specimen Type POC Capillary 05/10/2025 4:57 PM EDT [facility] Blood Capillary blood specimen / Unknown 05/10/2025 4:55 PM EDT 05/10/2025 4:57 PM EDT us Selin Lee MD LAB POINT OF CARE TE ST DOCKED DEVICE UNSOLICITED RESULTS Final Result Performing Organization Address City/State/[facility] Co de Phone Number [facility] [address] [place] [address] * (ABNORMAL) POCT glucose meter (05/10/2025 11:41 AM EDT) POCT Glucose 348(H) 74 - 99 mg/dL [...] 05/10/2025 11:43 AM EDT [facility] Brick Handler ID Char Hinojosa 05/10/2025 11:43 AM EDT HEALTHCARE LAB Device ID [id number] 05/10/2025 11:43 AM EDT [facility]ALTH[facility]ARE LAB Specimen Type POC Capillary 05/10/2025 11:43 AM EDT [facility] Blood Capillary blood specimen / Unknown 05/10/2025 11:41 AM EDT 05/10/2025 11:43 AM EDT us Selin Lee MD LAB POINT OF CARE TE ST DOCKED DEVICE UNSOLICITED RESULTS Final Result [facility] [address] [place] [address] * ECG 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/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 [facility] EKG DIAGNOSIS CLASS Abnormal MUSE ECG Ventricular Rate 65 BPM MUSE ECG Atrial Rate 65 BPM MUSE ECG NY Interval 198 ms MUSE ECG QRSD Interval 154 ms MUSE ECG QT Interval 508 ms MUSE ECG QTC Interval 528 ms MUSE ECG P [place] 66 degrees MUSE ECG R [place] -39 degrees MUSE ECG T Wave [place] -16 degrees MUSE ECG Diagnosis Normal sinus rhythm with sinus arrhythmia MUSE ECG Diagnosis Left axis deviation MUSE ECG Diagnosis Right bundle branch block MUSE ECG Diagnosis Minimal voltage criteria for LVH, may be normal variant ( R in aVL ) MUSE ECG Diagnosis Abnormal ECG MUSE ECG Diagnosis MUSE ECG Diagnosis Confirmed by Manas Mccauley ([id number]) on 05/10/2025 3:20:48 PM MUSE ECG 05/10/2025 11:2 0 AM EDT 05/10/2025 3:20 PM EDT Selin Lee MD ECG ORDERABLES Final Result Performing Organization Address City/State/[facility] Co de Phone Number MUSE ECG * (ABNORMAL) POCT glucose meter (05/10/2025 7:30 AM EDT) [facility] POCT Glucose 332(H) 74 - 99 [...] 05/10/2025 7:33 AM EDT [facility] Brick Handler ID Char Hinojosa 05/10/2025 7:33 AM EDT [facility] Device ID [id number] 05/10/2025 7:33 AM EDT [facility] Specimen Type POC Capillary 05/10/2025 7:33 AM EDT [facility] Blood Capillary blood specimen / Unknown 05/10/2025 7:30 AM EDT 05/10/2025 7:33 AM EDT us Selin Lee MD LAB POINT OF CARE TE ST DOCKED DEVICE UNSOLICITED RESULTS Final Result Performing Organization Address City/[facility]/ZIP Co de Phone Number [facility]ARE [facility] [address] [place] [address] * ECG 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/2025 6:14 AM EDT) EKG DIAGNOSIS CLASS Abnormal MUSE ECG Ventricular Rate 56 BPM MUSE ECG Atrial Rate 56 BPM MUSE ECG NY Interval 196 ms MUSE ECG QRSD Interval 164 ms MUSE ECG QT Interval 508 ms MUSE ECG QTC Interval 490 ms MUSE ECG P [place] 74 degrees MUSE ECG R [place] -33 degrees MUSE ECG T Wave [place] -10 degrees MUSE ECG Diagnosis Sinus bradycardia [...] ECG ORDERABLES Final Result Performing Organization Address City/[facility] Co de Phone Number MUSE [...] Comment 05/10/2025 4:02 AM EDT [facility]ALTH[facility]ARE LAB Brick Handler ID Maribell Saeed 4:02 AM EDT HEALTHCARE LAB Device ID [id number] 05/10/2025 4:02 AM EDT HEALTHCARE LAB Specimen Type POC Capillary 05/10/2025 4:02 AM EDT [facility]ALTH[facility]ARE LAB Blood Capillary blood specimen / Unknown 05/10/2025 4:00 AM EDT 05/10/2025 4:02 AM EDT Diane Guzman MD LAB POINT OF CARE T EST DOCKED DEVICE UNSOLICITED RESULTS Final Result Performing Organization Address City/[facility]/ZIP Co de Phone Number [facility] [address] [place] [address] * (ABNORMAL) POCT glucose meter (05/09/2025 8:37 PM EDT) POCT Glucose 296(H) 74 - 99 mg/dL [...] Comment 05/09/2025 8:39 PM EDT [facility]ALTH[facility]ARE [facility] Brick Handler ID Maribell Saeed 8:39 PM EDT HEALTHCARE LAB Device ID [id number] 05/09/2025 8:39 PM EDT [facility]ALTH[facility]ARE LAB Specimen Type POC Capillary 05/09/2025 8:39 PM EDT [facility] Blood Capillary blood specimen / Unknown 05/09/2025 8:37 PM EDT 05/09/2025 8:39 PM EDT Diane Guzman MD LAB POINT OF CARE T EST DOCKED DEVICE UNSOLICITED RESULTS Final Result Performing Organization Address City/[facility]/ZIP Co de Phone Number [facility] [address] [place] [address] * Magnesium (05/09/2025 5:54 PM EDT) Magnesium, Plasma 1.9 1.9 - 2.4 mg/dL 05/09/2025 6:56 PM EDT [facility] Blood Venous blood specimen / Unknown Venipuncture / Unknown 05/09/2025 5:54 PM EDT 05/09/2025 6:25 PM EDT us Selin Lee MD LAB BLOOD ORDERABLES Final Re sult [facility] [address] [place] [address] * (ABNORMAL) Basic metabolic panel (05/09/2025 5:54 PM EDT) Glucose, Plasma 416(H) 74 - 99 mg/dL 05/09/2025 6:56 PM EDT [facility] BUN, Plasma 17 7 - 21 mg/dL 05/09/2025 6:56 PM EDT [facility] Creatinine, Plasma 0.81 0.70 - 1.20 mg/dL 05/09/2025 6:56 PM EDT [facility] BUN/Creatinine Ratio 21 05/09/2025 6:56 PM EDT [facility] Sodium, Plasma 130(L) 136 - 145 mmol/L 05/09/2025 6:56 PM EDT [facility] Potassium, Plasma 3.1(L) 3.6 - 4.9 mmol/L 05/09/2025 6:56 PM EDT [facility] Chloride, Plasma 84(L) 97 - 107 mmol/L 05/09/2025 6:56 PM EDT [facility] CO2, Plasma 35(H) 22 - 29 mmol/L 05/09/2025 6:56 PM EDT [facility] Anion Gap 11 6 - 16 mmol/L 05/09/2025 6:56 PM EDT [facility] Total Calcium, Plasma 9.1 8.9 - 10.2 mg/dL 05/09/2025 6:56 PM EDT [facility] eGFRcr 109.4 mL/min/1.7 3m*2 05/09/2025 6:56 PM EDT [facility] Comment:Reported eGFRcr in m L/min/1.73m2 is based the CKD-EPI 2020 equation that does not use a race coefficient. Blood Venous blood specimen / Unknown Venipuncture / Unknown 05/09/2025 5:54 PM EDT 05/09/2025 6:25 PM EDT us Selin Lee MD LAB BLOOD ORDERABLES Final Re sult Performing Organization Address City/[facility]/ZIP Co de Phone Number [facility] [address] [place] [address] * (ABNORMAL) POCT glucose meter (05/09/2025 5:17 PM EDT) [facility] POCT Glucose 398(H) 74 - 99 [...] Comment 05/09/2025 5:20 PM EDT [facility] Brick Handler ID Char Hinojosa 05/09/2025 5:20 PM EDT [facility] Device ID [id number] 05/09/2025 5:20 PM EDT [facility] Specimen Type POC Capillary 05/09/2025 5:20 PM EDT [facility] Blood Capillary blood specimen / Unknown 05/09/2025 5:17 PM EDT 05/09/2025 5:20 PM EDT us Diane Guzman MD LAB POINT OF CARE T EST DOCKED DEVICE UNSOLICITED RESULTS Final Result Performing Organization Address City/[facility]/ZIP Co de Phone Number HEALTHCARE LAB [address] [place] [address] * ECG Adult (05/09/2025 12:34 PM EDT) [facility] EKG DIAGNOSIS CLASS Abnormal MUSE ECG Ventricular Rate 75 BPM MUSE ECG Atrial Rate 75 BPM MUSE ECG [place] Interval 176 ms MUSE ECG QRSD Interval 164 ms MUSE ECG QT Interval 454 ms MUSE ECG QTC Interval 506 ms MUSE ECG P [place] 70 degrees MUSE ECG R [place] -38 degrees MUSE ECG T Wave [place] 2 degrees MUSE ECG Diagnosis Normal sinus rhythm MUSE ECG Diagnosis Left axis deviation MUSE ECG Diagnosis Right bundle branch block MUSE ECG Diagnosis Minimal voltage criteria for LVH, may be normal variant ( R in aVL ) MUSE ECG Diagnosis T wave abnormality, consider lateral ischemia MUSE ECG Diagnosis Abnormal ECG MUSE ECG Diagnosis MUSE ECG Diagnosis Confirmed by Garrett Robles ([id number]) on 05/09/2025 2:20:08 PM MUSE ECG 05/09/2025 [...] 05/09/2025 12:27 PM EDT [facility] Brick Handler ID Dunia Montgomery 05/09/2025 12:27 PM EDT HEALTHCARE LAB Device ID [id number] 05/09/2025 12:27 PM EDT HEALTHCARE LAB Specimen Type POC Capillary 05/09/2025 12:27 PM EDT [facility] LAB Blood Capillary blood specimen / Unknown 05/09/2025 12:25 PM EDT 05/09/2025 12:27 PM EDT Diane Guzman MD LAB POINT OF CARE T EST DOCKED DEVICE UNSOLICITED RESULTS Final Result Performing Organization Address City/[facility]/ZIP Co de Phone Number [facility] [address] [place] [address] * (ABNORMAL) POCT glucose meter (05/09/2025 7:52 AM EDT) [facility] POCT Glucose 306(H) 74 - 99 [...] Comment 05/09/2025 7:54 AM EDT [facility]ALTHCARE LAB Brick Handler ID Char Hinojosa 05/09/2025 7:54 AM EDT HEALTHCARE LAB Device ID [id number] 05/09/2025 7:54 AM EDT HEALTHCARE LAB Specimen Type POC Capillary 05/09/2025 7:54 AM EDT [facility] Blood Capillary blood specimen / Unknown 05/09/2025 7:52 AM EDT 05/09/2025 7:54 AM EDT Diane Guzman MD LAB POINT OF CARE T EST DOCKED DEVICE UNSOLICITED RESULTS Final Result Performing Organization Address City/[facility]/ZIP Co de Phone Number [facility] [address] [place] [address] * (ABNORMAL) POCT glucose meter (05/08/2025 11:54 PM EDT) [facility] POCT Glucose 273(H) 74 - 99 [...] 05/08/2025 11:56 PM EDT [facility] Brick Handler ID Kaylin Barron 05/08/2025 11:56 PM EDT HEALTHCARE LAB Device ID [id number] 05/08/2025 11:56 PM EDT HEALTHCARE LAB Specimen Type POC Capillary 05/08/2025 11:56 PM EDT [facility]CARE LAB Blood Capillary blood specimen / Unknown 05/08/2025 11:54 PM EDT 05/08/2025 11:56 PM EDT Diane Guzman MD LAB POINT OF CARE T EST DOCKED DEVICE UNSOLICITED RESULTS Final Result Performing Organization Address City/[facility] Co de Phone Number [facility] [address] [place] [address] * (ABNORMAL) POCT glucose meter (05/08/2025 7:33 PM EDT) [facility] POCT Glucose 310(H) 74 - 99 mg/dL [...] Comment 05/08/2025 7:35 PM EDT HEALTHCARE LAB Brick Handler ID Kaylin Barron 05/08/2025 7:35 PM EDT HEALTHCARE LAB Device ID [id number] 05/08/2025 7:35 PM EDT HEALTHCARE LAB Specimen Type POC Capillary 05/08/2025 7:35 PM EDT [facility] LAB Blood Capillary blood specimen / Unknown 05/08/2025 7:33 PM EDT 05/08/2025 7:35 PM EDT Diane Guzman MD LAB POINT OF CARE T EST DOCKED DEVICE UNSOLICITED RESULTS Final Result Performing Organization Address City/[facility] Co de Phone Number HEALTHCARE LAB [address] [place] [address] * (ABNORMAL) POCT glucose meter (05/08/2025 5:00 PM EDT) [facility] POCT Glucose 347(H) 74 - 99 mg/dL 05/08/2025 5:02 PM EDT HEALTHCARE LAB Comment:Accuracy of a [...] Comment 05/08/2025 5:02 PM EDT [facility]CARE LAB Brick Handler ID Char Hinojosa 05/08/2025 5:02 PM EDT HEALTHCARE LAB Device ID [id number] 05/08/2025 5:02 PM EDT HEALTHCARE LAB Specimen Type POC Capillary 05/08/2025 5:02 PM EDT [facility] Blood Capillary blood specimen / Unknown 05/08/2025 5:00 PM EDT 05/08/2025 5:02 PM EDT Diane Guzman MD LAB POINT OF CARE T EST DOCKED DEVICE UNSOLICITED RESULTS Final Result [facility] [address] [place] [address] * (ABNORMAL) POCT glucose meter (05/08/2025 11:42 AM EDT) [facility] POCT Glucose 298(H) 74 - 99 [...] Comment 05/08/2025 11:44 AM EDT [facility]ALTHCARE LAB Brick Handler ID Char Hinojosa 05/08/2025 11:44 AM EDT HEALTHCARE LAB Device ID [id number] 05/08/2025 11:44 AM EDT HEALTHCARE LAB Specimen Type POC Capillary 05/08/2025 11:44 AM EDT [facility] Blood Capillary blood specimen / Unknown 05/08/2025 11:42 AM EDT 05/08/2025 11:44 AM EDT Result [facility] Diane Guzman MD LAB POINT OF CARE T EST DOCKED DEVICE UNSOLICITED RESULTS Final Result Performing Organization Address [facility] Co de Phone Number HEALTHCARE LAB [address] [place] [address] * (ABNORMAL) POCT glucose meter (05/08/2025 8:05 AM EDT) [facility] POCT Glucose 346(H) 74 - 99 mg/dL [...] Comment 05/08/2025 8:07 AM EDT HEALTHCARE LAB Brick Handler ID Char Hinojosa 05/08/2025 8:07 AM EDT HEALTHCARE LAB Device ID [id number] 05/08/2025 8:07 AM EDT [facility] Specimen Type POC Capillary 05/08/2025 8:07 AM EDT [facility] Blood Capillary blood specimen / Unknown 05/08/2025 8:05 AM EDT 05/08/2025 8:07 AM EDT Result [facility] Diane Guzman MD LAB POINT OF CARE T EST DOCKED DEVICE UNSOLICITED RESULTS Final Result Performing Organization Address City/[facility] Co de Phone Number [facility] [address] [place] [address] * (ABNORMAL) POCT glucose meter (05/08/2025 3:56 AM EDT) [facility] POCT Glucose 388(H) 74 - 99 [...] Comment 05/08/2025 3:58 AM EDT [facility]ALTHCARE LAB Brick Handler ID Stella Coleman 05/08/20 3:58 AM EDT HEALTHCARE LAB Device ID [id number] 05/08/2025 3:58 AM EDT HEALTHCARE LAB Specimen Type POC Capillary 05/08/2025 3:58 AM EDT [facility]ARE LAB Blood Capillary blood specimen / Unknown 05/08/2025 3:56 AM EDT 05/08/2025 3:58 AM EDT us Diane Guzman MD LAB POINT OF CARE T EST DOCKED DEVICE UNSOLICITED RESULTS Final Result Performing Organization Address City/State/[facility] Co de Phone Number HEALTHCARE LAB [address] [place] [address] * (ABNORMAL) POCT glucose meter (05/07/2025 8:14 PM EDT) [facility] POCT Glucose 392(H) 74 - 99 [...] Comment 05/07/2025 8:15 PM EDT [facility]CARE LAB Brick Handler ID Fela Coelho 05/07/2025 8:15 PM EDT HEALTHCARE LAB Device ID [id number] 05/07/2025 8:15 PM EDT HEALTHCARE LAB Specimen Type POC Capillary 05/07/2025 8:15 PM EDT [facility] LAB Blood Capillary blood specimen / Unknown 05/07/2025 8:14 PM EDT 05/07/2025 8:15 PM EDT us Diane Guzman MD LAB POINT OF CARE T EST DOCKED DEVICE UNSOLICITED RESULTS Final Result Performing Organization Address City/[facility]/ZIP Co de Phone Number [facility] [address] [place] [address] * (ABNORMAL) POCT glucose meter (05/07/2025 5:10 PM EDT) [facility] POCT Glucose 411(H) 74 - 99 mg/dL [...] Comment 05/07/2025 5:13 PM EDT HEALTHCARE LAB Brick Handler ID Priyanka Negrete 05/07/20 5:13 PM EDT HEALTHCARE LAB Device ID [id number] 05/07/2025 5:13 PM EDT [facility] Specimen Type POC Capillary 05/07/2025 5:13 PM EDT [facility] Blood Capillary blood specimen / Unknown 05/07/2025 5:10 PM EDT 05/07/2025 5:13 PM EDT Diane Guzman MD LAB POINT OF CARE T EST DOCKED DEVICE UNSOLICITED RESULTS Final Result Performing Organization Address City/[facility]/ZIP Co de Phone Number [facility] [address] [place] [address] * (ABNORMAL) POCT glucose meter (05/07/2025 12:04 PM EDT) [facility] POCT Glucose 350(H) 74 - 99 [...] 05/07/2025 12:10 PM EDT [facility] Brick Handler ID Priyanka Negrete 05/07/20 12:10 PM EDT [facility] Device ID [id number] 05/07/2025 12:10 PM EDT HEALTHCARE LAB Specimen Type POC Capillary 05/07/2025 12:10 PM EDT HEALTHCARE LAB Blood Capillary blood specimen / Unknown 05/07/2025 12:04 PM EDT 05/07/2025 12:10 PM EDT Diane Guzman MD LAB POINT OF CARE T EST DOCKED DEVICE UNSOLICITED RESULTS Final Result Performing Organization Address City/[facility] Co de Phone Number [facility] [address] [place] [address] * (ABNORMAL) POCT glucose meter (05/07/2025 7:41 AM EDT) [facility] POCT Glucose 356(H) 74 - 99 mg/dL [...] Comment 05/07/2025 7:44 AM EDT HEALTHCARE LAB Brick Handler ID Priyanka Negrete 05/07/20 7:44 AM EDT HEALTHCARE LAB Device ID [id number] 05/07/2025 7:44 AM EDT HEALTHCARE LAB Specimen Type POC Capillary 05/07/2025 7:44 AM EDT [facility]ALTHCARE LAB Blood Capillary blood specimen / Unknown 05/07/2025 7:41 AM EDT 05/07/2025 7:44 AM EDT Diane Guzman MD LAB POINT OF CARE T EST DOCKED DEVICE UNSOLICITED RESULTS Final Result Performing Organization Address City/[facility] Co de Phone Number [facility] [address] [place] [address] * (ABNORMAL) POCT glucose meter (05/07/2025 3:41 AM EDT) [facility] POCT Glucose 407(H) 74 - [...] for testing. Comment 05/07/2025 3:43 AM EDT [facility] Brick Handler ID Won Casas 05/07/2025 3:43 AM EDT HEALTHCARE LAB Device ID [id number] 05/07/2025 3:43 AM EDT HEALTHCARE LAB Specimen Type POC Capillary 05/07/2025 3:43 AM EDT HEALTHCARE LAB Blood Capillary blood specimen / Unknown 05/07/2025 3:41 AM EDT 05/07/2025 3:43 AM EDT Diane Guzman MD LAB POINT OF CARE T EST DOCKED DEVICE UNSOLICITED RESULTS Final Result [facility] [address] [place] [address] * (ABNORMAL) POCT glucose meter (05/06/2025 8:01 PM EDT) [facility] POCT Glucose 324(H) 74 - 99 [...] Comment 05/06/2025 8:02 PM EDT HEALTHCARE LAB Brick Handler ID Won Casas 05/06/2025 8:02 PM EDT HEALTHCARE LAB Device ID [id number] 05/06/2025 8:02 PM EDT HEALTHCARE LAB Specimen Type POC Capillary 05/06/2025 8:02 PM EDT HEALTHCARE LAB Blood Capillary blood specimen / Unknown 05/06/2025 8:01 PM EDT 05/06/2025 8:02 PM EDT Diane Guzman MD LAB POINT OF CARE T EST DOCKED DEVICE UNSOLICITED RESULTS Final Result Performing Organization Address [facility] Co de Phone Number HEALTHCARE LAB [address] [place] [address] * (ABNORMAL) POCT glucose meter (05/06/2025 4:40 PM EDT) [facility] POCT Glucose 212(H) 74 - 99 [...] Comment 05/06/2025 4:46 PM EDT HEALTHCARE LAB Brick Handler ID Sherrell Navarro 05/06/2025 4:46 PM EDT [facility] Device ID [id number] 05/06/2025 4:46 PM EDT [facility] Specimen Type POC Capillary 05/06/2025 4:46 PM EDT [facility] Blood Capillary blood specimen / Unknown 05/06/2025 4:40 PM EDT 05/06/2025 4:46 PM EDT Diane Guzman MD LAB POINT OF CARE T EST DOCKED DEVICE UNSOLICITED RESULTS Final Result Performing Organization Address City/[facility]/ZIP Co de Phone Number HEALTHCARE LAB [address] [place] [address] * PSA, diagnostic (05/06/2025 12:27 PM EDT) [facility] PSA, Diagnostic, Serum 0.03 0.00 - 2.50 ng/mL 05/06/2025 1:10 PM EDT [facility] Blood Venous blood specimen / Unknown Venipuncture / Unknown 05/06/2025 12:27 PM EDT 05/06/2025 12:33 PM EDT Narrative [facility] - 05/06/2025 1:10 PM EDT Performed by Bella electrochemiluminescent immunoassay which is standardized against the PSA Bono Reference Standard (WHO 96/670). Results obtained with different test methods or kits cannot be used interchangeably. Diane Guzman MD LAB BLOOD ORDERABLES Final Result Performing Organization Address City/[facility]/ZIP Co de Phone Number [facility] [address] [place] [address] * (ABNORMAL) POCT glucose meter (05/06/2025 11:28 AM EDT) POCT Glucose 337(H) 74 - 99 mg/dL [...] Comment 05/06/2025 11:30 AM EDT HEALTHCARE LAB Brick Handler ID Sherrell Navarro 05/06/2025 11:30 AM EDT HEALTHCARE LAB Device ID [id number] 05/06/2025 11:30 AM EDT [facility] Specimen Type POC Capillary 05/06/2025 11:30 AM EDT [facility] Blood Capillary blood specimen / Unknown 05/06/2025 11:28 AM EDT 05/06/2025 11:30 AM EDT us Diane Guzman MD LAB POINT OF CARE T EST DOCKED DEVICE UNSOLICITED RESULTS Final Result Performing Organization Address City/[facility]/ZIP Co de Phone Number [facility] [address] [place] [address] * (ABNORMAL) POCT glucose meter (05/06/2025 8:13 AM EDT) POCT Glucose 348(H) 74 - 99 mg/dL [...] Comment 05/06/2025 8:23 AM EDT HEALTHCARE LAB Brick Handler ID Sherrell Navarro 05/06/2025 8:23 AM EDT HEALTHCARE LAB Device ID [id number] 05/06/2025 8:23 AM EDT HEALTHCARE LAB Specimen Type POC Capillary 05/06/2025 8:23 AM EDT [facility]ALTH[facility]ARE LAB Blood Capillary blood specimen / Unknown 05/06/2025 8:13 AM EDT 05/06/2025 8:23 AM EDT Diane Guzman MD LAB POINT OF CARE T EST DOCKED DEVICE UNSOLICITED RESULTS Final Result Performing Organization Address City/State/[facility] Co de Phone Number HEALTHCARE LAB [address] [place] [address] * (ABNORMAL) POCT glucose meter (05/06/2025 3:09 AM EDT) [facility] POCT Glucose 364(H) 74 - 99 mg/dL [...] Comment 05/06/2025 3:11 AM EDT HEALTHCARE LAB Brick Handler ID Won Casas 05/06/2025 3:11 AM EDT HEALTHCARE LAB Device ID [id number] 05/06/2025 3:11 AM EDT HEALTHCARE LAB Specimen Type POC Capillary 05/06/2025 3:11 AM EDT [facility]ALTH[facility]ARE LAB Blood Capillary blood specimen / Unknown 05/06/2025 3:09 AM EDT 05/06/2025 3:11 AM EDT Diane Guzman MD LAB POINT OF CARE T EST DOCKED DEVICE UNSOLICITED RESULTS Final Result [facility] [address] [place] [address] * (ABNORMAL) POCT glucose meter (05/05/2025 8:19 PM EDT) POCT Glucose 324(H) 74 - 99 mg/dL 05/05/2025 8:20 PM EDT HEALTHCARE LAB Comment:Accuracy of a [...] Comment 05/05/2025 8:20 PM EDT HEALTHCARE LAB Brick Handler ID Won Casas 05/05/2025 8:20 PM EDT HEALTHCARE LAB Device ID [id number] 05/05/2025 8:20 PM EDT [facility] Specimen Type POC Capillary 05/05/2025 8:20 PM EDT [facility] Blood Capillary blood specimen / Unknown 05/05/2025 8:19 PM EDT 05/05/2025 8:20 PM EDT us Diane Guzman MD LAB POINT OF CARE T EST DOCKED DEVICE UNSOLICITED RESULTS Final Result [facility] [address] [place] [address] * (ABNORMAL) POCT glucose meter (05/05/2025 5:09 [...] Comment 05/05/2025 5:14 PM EDT HEALTHCARE LAB Brick Handler ID Sherrell Navarro 05/05/2025 5:14 PM EDT [facility] Device ID [id number] 05/05/2025 5:14 PM EDT HEALTHCARE LAB Specimen Type POC Capillary 05/05/2025 5:14 PM EDT HEALTHCARE LAB Blood Capillary blood specimen / Unknown 05/05/2025 5:09 PM EDT 05/05/2025 5:14 PM EDT Diane Guzman MD LAB POINT OF CARE T EST DOCKED DEVICE UNSOLICITED RESULTS Final Result Performing Organization Address [facility] Co de Phone Number [facility] [address] [place] [address] * (ABNORMAL) POCT glucose meter (05/05/2025 11:29 [...] Comment 05/05/2025 11:32 AM EDT HEALTHCARE LAB Brick Handler ID Sherrell Navarro 05/05/2025 11:32 AM EDT HEALTHCARE LAB Device ID [id number] 05/05/2025 11:32 AM EDT [facility] Specimen Type POC Capillary 05/05/2025 11:32 AM EDT [facility]ALTHCARE LAB Blood Capillary blood specimen / Unknown 05/05/2025 11:29 AM EDT 05/05/2025 11:32 AM EDT Diane Guzman MD LAB POINT OF CARE T EST DOCKED DEVICE UNSOLICITED RESULTS Final Result Performing Organization Address City/[facility]/ZIP Co de Phone Number [facility] [address] [place] [address] * (ABNORMAL) POCT glucose meter (05/05/2025 7:55 [...] Comment 05/05/2025 7:57 AM EDT HEALTHCARE LAB Brick Handler ID Sherrell Navarro 05/05/2025 7:57 AM EDT HEALTHCARE LAB Device ID [id number] 05/05/2025 7:57 AM EDT HEALTHCARE LAB Specimen Type POC Capillary 05/05/2025 7:57 AM EDT HEALTHCARE LAB Blood Capillary blood specimen / Unknown 05/05/2025 7:55 AM EDT 05/05/2025 7:57 AM EDT Diane Guzman MD LAB POINT OF CARE T EST DOCKED DEVICE UNSOLICITED RESULTS Final Result Performing Organization Address City/State/[facility] Co de Phone Number [facility] [address] [place] [address] * (ABNORMAL) POCT glucose meter (05/04/2025 7:35 PM EDT) Pathologist [facility] POCT Glucose 236(H) 74 - [...] 05/04/2025 7:37 PM EDT [facility] Brick Handler ID Kaylin Barron 05/04/2025 7:37 PM EDT [facility] Device ID [id number] 05/04/2025 7:37 PM EDT [facility] Specimen Type POC Capillary 05/04/2025 7:37 PM EDT [facility]ALTHCARE LAB Blood Capillary blood specimen / Unknown 05/04/2025 7:35 PM EDT 05/04/2025 7:37 PM EDT Diane Guzman MD LAB POINT OF CARE T EST DOCKED DEVICE UNSOLICITED RESULTS Final Result Performing Organization Address City/[facility]/ZIP Co de Phone Number HEALTHCARE LAB [address] [place] [address] * (ABNORMAL) POCT glucose meter (05/04/2025 4:51 PM EDT) POCT Glucose 233(H) 74 - 99 [...] Comment 05/04/2025 4:53 PM EDT HEALTHCARE LAB Brick Handler ID Araceli Doran 025 4:53 PM EDT HEALTHCARE LAB Device ID [id number] 05/04/2025 4:53 PM EDT HEALTHCARE LAB Specimen Type POC Capillary 05/04/2025 4:53 PM EDT [facility]ALTH[facility]ARE LAB Blood Capillary blood specimen / Unknown 05/04/2025 4:51 PM EDT 05/04/2025 4:53 PM EDT Diane Guzman MD LAB POINT OF CARE T EST DOCKED DEVICE UNSOLICITED RESULTS Final Result Performing Organization Address City/[facility]/ZIP Co de Phone Number [facility]ARE LAB [address] [place] [address] * (ABNORMAL) POCT glucose meter (05/04/2025 11:51 AM EDT) POCT Glucose 271(H) 74 - [...] Comment 05/04/2025 11:56 AM EDT HEALTHCARE LAB Brick Handler ID Araceli Doran 025 11:56 AM EDT HEALTHCARE LAB Device ID [id number] 05/04/2025 11:56 AM EDT HEALTHCARE LAB Specimen Type POC Capillary 05/04/2025 11:56 AM EDT [facility]ALTH[facility]ARE LAB Blood Capillary blood specimen / Unknown 05/04/2025 11:51 AM EDT 05/04/2025 11:56 AM EDT Diane Guzman MD LAB POINT OF CARE T EST DOCKED DEVICE UNSOLICITED RESULTS Final Result Performing Organization Address City/State/[facility] Co de Phone Number HEALTHCARE LAB [address] [place] [address] * (ABNORMAL) POCT glucose meter (05/04/2025 8:09 [...] Comment 05/04/2025 8:17 AM EDT [facility]ALTHCARE LAB Brick Handler ID Araceli Doran 025 8:17 AM EDT HEALTHCARE LAB Device ID [id number] 05/04/2025 8:17 AM EDT HEALTHCARE LAB Specimen Type POC Capillary 05/04/2025 8:17 AM EDT [facility]ALTH[facility]ARE LAB Blood Capillary blood specimen / Unknown 05/04/2025 8:09 AM EDT 05/04/2025 8:17 AM EDT us Diane Guzman MD LAB POINT OF CARE T EST DOCKED DEVICE UNSOLICITED RESULTS Final Result [facility] [address] [place] [address] * (ABNORMAL) POCT glucose meter (05/04/2025 4:44 AM EDT) POCT Glucose 335(H) 74 - 99 mg/dL 05/04/2025 4:46 AM EDT HEALTHCARE LAB Comment:Accuracy of a [...] for testing. Comment 05/04/2025 4:46 AM EDT [facility] Brick Handler ID Kaylin Barron 05/04/2025 4:46 AM EDT [facility] Device ID [id number] 05/04/2025 4:46 AM EDT [facility] Specimen Type POC Capillary 05/04/2025 4:46 AM EDT [facility] Blood Capillary blood specimen / Unknown 05/04/2025 4:44 AM EDT 05/04/2025 4:46 AM EDT us Diane Guzman MD LAB POINT OF CARE T EST DOCKED DEVICE UNSOLICITED RESULTS Final Result [facility] [address] [place] [address] * (ABNORMAL) POCT glucose meter (05/03/2025 7:27 [...] Comment 05/03/2025 7:33 PM EDT HEALTHCARE LAB Brick Handler ID Kaylin Barron 05/03/2025 7:33 PM EDT HEALTHCARE LAB Device ID [id number] 05/03/2025 7:33 PM EDT HEALTHCARE LAB Specimen Type POC Capillary 05/03/2025 7:33 PM EDT [facility]ALTH[facility]ARE LAB Blood Capillary blood specimen / Unknown 05/03/2025 7:27 PM EDT 05/03/2025 7:33 PM EDT us Diane Guzman MD LAB POINT OF CARE T EST DOCKED DEVICE UNSOLICITED RESULTS Final Result [facility] [address] [place] [id number] * (ABNORMAL) Comprehensive metabolic panel (05/03/2025 6:22 PM EDT) Glucose, Plasma 290(H) 74 - 99 mg/dL 05/03/2025 7:13 PM EDT [facility] BUN, Plasma 14 7 - 21 mg/dL 05/03/2025 7:13 PM EDT [facility] Creatinine, Plasma 0.71 0.70 - 1.20 mg/dL 05/03/2025 7:13 PM EDT [facility] BUN/Creatinine Ratio 20 05/03/2025 7:13 PM EDT [facility] Sodium, Plasma 133(L) 136 - 145 mmol/L 05/03/2025 7:13 PM EDT [facility] Potassium, Plasma 3.6 3.6 - 4.9 mmol/L 05/03/2025 7:13 PM EDT [facility] Chloride, Plasma 87(L) 97 - 107 mmol/L 05/03/2025 7:13 PM EDT [facility] CO2, Plasma 37(H) 22 - 29 mmol/L 05/03/2025 7:13 PM EDT [facility] Anion Gap 9 6 - 16 mmol/L 05/03/2025 7:13 PM EDT [facility] Total Calcium, Plasma 9.4 8.9 - 10.2 mg/dL 05/03/2025 7:13 PM EDT [facility] Total Protein 8.0(H) 6.3 - 7.9 g/dL 05/03/2025 7:13 PM EDT [facility] Albumin, Plasma 3.6 3.5 - 5.2 g/dL 05/03/2025 7:13 PM EDT [facility] AST, Plasma 18 10 - 50 U/L 05/03/2025 7:13 PM EDT [facility] ALT, Plasma 12 10 - 50 U/L 05/03/2025 7:13 PM EDT [facility] Alkaline Phosphatase, Plasma 64 40 - 115 U/L 05/03/2025 7:13 PM EDT [facility] Total Bilirubin, Plasma 0.7 0.2 - 1.1 mg/dL 05/03/2025 7:13 PM EDT [facility] eGFRcr 113.9 mL/min/1.7 3m*2 05/03/2025 7:13 PM EDT [facility] Comment:Reported eGFRcr in m L/min/1.73m2 is based the CKD-EPI 2020 equation that does not use a race coefficient. Blood Venous blood specimen / Unknown Venipuncture / Unknown 05/03/2025 6:22 PM EDT 05/03/2025 6:38 PM EDT us Diane Guzman MD LAB BLOOD ORDERABLES Final Result [facility] [address] [place] [address] * Creatine Kinase (CK), Total (05/03/2025 6:22 PM EDT) Creatine Kinase, Plasma 54 49 - 320 U/L 05/03/2025 7:13 PM EDT [facility] Blood Venous blood specimen / Unknown Venipuncture / Unknown 05/03/2025 6:22 PM EDT 05/03/2025 6:38 PM EDT Diane Guzman MD LAB BLOOD ORDERABLES Final Result [facility] [address] [place] [address] * (ABNORMAL) POCT glucose meter (05/03/2025 5:30 PM EDT) [facility] POCT Glucose 258(H) 74 - 99 [...] Comment 05/03/2025 5:33 PM EDT HEALTHCARE LAB Brick Handler ID Dunia Montgomery 05/03/2025 5:33 PM EDT HEALTHCARE LAB Device ID [id number] 05/03/2025 5:33 PM EDT HEALTHCARE LAB Specimen Type POC Capillary 05/03/2025 5:33 PM EDT [facility]ALTH[facility]ARE LAB Blood Capillary blood specimen / Unknown 05/03/2025 5:30 PM EDT 05/03/2025 5:33 PM EDT Diane Guzman MD LAB POINT OF CARE T EST DOCKED DEVICE UNSOLICITED RESULTS Final Result [facility] [address] [place] [address] * (ABNORMAL) POCT glucose meter (05/03/2025 11:36 AM EDT) [facility] POCT Glucose 310(H) 74 - 99 mg/dL [...] for testing. Comment 05/03/2025 11:38 AM EDT [facility] Brick Handler ID Kindra Cardoza 05/03/2025 11:38 AM EDT HEALTHCARE LAB Device ID [id number] 05/03/2025 11:38 AM EDT HEALTHCARE LAB Specimen Type POC Capillary 05/03/2025 11:38 AM EDT [facility]ALTH[facility]ARE LAB Blood Capillary blood specimen / Unknown 05/03/2025 11:36 AM EDT 05/03/2025 11:38 AM EDT Diane Guzman MD LAB POINT OF CARE T EST DOCKED DEVICE UNSOLICITED RESULTS Final Result Performing Organization Address City/[facility] Co de Phone Number HEALTHCARE LAB [address] [place] [address] * (ABNORMAL) POCT glucose meter (05/03/2025 8:09 AM EDT) [facility] POCT Glucose 339(H) 74 - 99 mg/dL [...] Comment 05/03/2025 8:11 AM EDT [facility]ALTH[facility]ARE [facility] Brick Handler ID Dunia Montgomery 05/03/2025 8:11 AM EDT HEALTHCARE LAB Device ID [id number] 05/03/2025 8:11 AM EDT [facility]ALTH[facility]ARE LAB Specimen Type POC Capillary 05/03/2025 8:11 AM EDT [facility] Blood Capillary blood specimen / Unknown 05/03/2025 8:09 AM EDT 05/03/2025 8:11 AM EDT Diane Guzman MD LAB POINT OF CARE T EST DOCKED DEVICE UNSOLICITED RESULTS Final Result Performing Organization Address City/[facility]/ZIP Co de Phone Number HEALTHCARE LAB [address] [place] [address] * (ABNORMAL) POCT glucose meter (05/03/2025 3:37 AM EDT) Pathologist [facility] POCT Glucose 372(H) 74 - [...] Comment 05/03/2025 3:40 AM EDT HEALTHCARE LAB Brick Handler ID Maribell Saeed 3:40 AM EDT [facility] Device ID [id number] 05/03/2025 3:40 AM EDT [facility] Specimen Type POC Capillary 05/03/2025 3:40 AM EDT [facility] Blood Capillary blood specimen / Unknown 05/03/2025 3:37 AM EDT 05/03/2025 3:40 AM EDT Diane Guzman MD LAB POINT OF CARE T EST DOCKED DEVICE UNSOLICITED RESULTS Final Result [facility] [address] [place] [address] * (ABNORMAL) CBC and Differential (05/03/2025 3:16 AM EDT) WBC Count 6.86 3.70 - 10.30 10*3/uL LAB HEMATOLOGY METHOD 05/03/2025 3:33 AM EDT [facility] RBC Count 3.82(L) 4.60 - 6.10 10*6/uL LAB HEMATOLOGY METHOD 05/03/2025 3:33 AM EDT [facility] HGB 8.9(L) 13.7 - 17.5 g/dL LAB HEMATOLOGY METHOD 05/03/2025 3:33 AM EDT [facility] HCT 29.2(L) 40.0 - 51.0 % LAB HEMATOLOGY METHOD 05/03/2025 3:33 AM EDT [facility] Platelet Count 202 155 - 369 10*3/uL LAB HEMATOLOGY METHOD 05/03/2025 3:33 AM EDT [facility] MCV 76(L) 79 - 98 fL LAB HEMATOLOGY METHOD 05/03/2025 3:33 AM EDT [facility] MCH 23.3(L) 26.0 - 32.0 pg LAB HEMATOLOGY METHOD 05/03/2025 3:33 AM EDT [facility] MCHC 30.5(L) 30.7 - 35.5 g/dL LAB HEMATOLOGY METHOD 05/03/2025 3:33 AM EDT [facility] RDW 18.8(H) 11.5 - 14.5 % LAB HEMATOLOGY METHOD 05/03/2025 3:33 AM EDT [facility] MPV 9.1 8.8 - 12.5 fL LAB HEMATOLOGY METHOD 05/03/2025 3:33 AM EDT [facility] nRBC 0.0 <=0.0 per 100 WBCs LAB HEMATOLOGY METHOD 05/03/2025 3:33 AM EDT [facility] Differential Type Automated LAB HEMATOLOGY METHOD 05/03/2025 3:33 AM EDT [facility] Neutrophils % 70 % LAB HEMATOLOGY METHOD 05/03/2025 3:33 AM EDT [facility] Lymphocytes % 15 % LAB HEMATOLOGY METHOD 05/03/2025 3:33 AM EDT [facility] Monocytes % 9 % LAB HEMATOLOGY METHOD 05/03/2025 3:33 AM EDT [facility] Eosinophils % 5 % LAB HEMATOLOGY METHOD 05/03/2025 3:33 AM EDT [facility] Basophils % 0 % LAB HEMATOLOGY METHOD 05/03/2025 3:33 AM EDT [facility] Immature Granulocytes % 1 % LAB HEMATOLOGY METHOD 05/03/2025 3:33 AM EDT [facility] Neutrophils Absolute 4.85 1.60 - 6.10 10*3/uL LAB HEMATOLOGY METHOD 05/03/2025 3:33 AM EDT [facility] Lymphocytes Absolute 1.03(L) 1.20 - 3.90 10*3/uL LAB HEMATOLOGY METHOD 05/03/2025 3:33 AM EDT [facility] Monocytes Absolute 0.59 0.30 - 0.90 10*3/uL LAB HEMATOLOGY METHOD 05/03/2025 3:33 AM EDT [facility] Eosinophils Absolute 0.32 0.00 - 0.50 10*3/uL LAB HEMATOLOGY METHOD 05/03/2025 3:33 AM EDT [facility] Basophils Absolute 0.03 0.00 - 0.10 10*3/uL LAB HEMATOLOGY METHOD 05/03/2025 3:33 AM EDT [facility] Immature Granulocytes Absolute 0.04 0.00 - 0.06 10*3/uL LAB HEMATOLOGY METHOD 05/03/2025 3:33 AM EDT [facility] Blood Venous blood specimen / Unknown Venipuncture / Unknown 05/03/2025 3:16 AM EDT 05/03/2025 3:25 AM EDT Narrative [facility] - 05/03/2025 3:33 AM EDT Therapeutic decision making should be based on absolute values, rather than percentages. us Marjorie Myers MD LAB BLOOD ORDERABLES Final Resul t [facility] [address] [place] [address] * (ABNORMAL) Basic Metabolic Panel, Plasma (05/03/2025 3:16 AM EDT) Glucose, Plasma 399(H) 74 - 99 mg/dL 05/03/2025 4:02 AM EDT [facility] BUN, Plasma 15 7 - 21 mg/dL 05/03/2025 4:02 AM EDT [facility] Creatinine, Plasma 0.78 0.70 - 1.20 mg/dL 05/03/2025 4:02 AM EDT [facility] BUN/Creatinine Ratio 19 05/03/2025 4:02 AM EDT [facility] Sodium, Plasma 136 136 - 145 mmol/L 05/03/2025 4:02 AM EDT [facility] Potassium, Plasma 3.6 3.6 - 4.9 mmol/L 05/03/2025 4:02 AM EDT [facility] Chloride, Plasma 90(L) 97 - 107 mmol/L 05/03/2025 4:02 AM EDT [facility] CO2, Plasma 37(H) 22 - 29 mmol/L 05/03/2025 4:02 AM EDT [facility] Anion Gap 9 6 - 16 mmol/L 05/03/2025 4:02 AM EDT [facility] Total Calcium, Plasma 9.0 8.9 - 10.2 mg/dL 05/03/2025 4:02 AM EDT [facility] eGFRcr 110.7 mL/min/1.7 3m*2 05/03/2025 4:02 AM EDT [facility] Comment:Reported eGFRcr in m L/min/1.73m2 is based the CKD-EPI 2020 equation that does not use a race coefficient. Blood Venous blood specimen / Unknown Venipuncture / Unknown 05/03/2025 3:16 AM EDT 05/03/2025 3:24 AM EDT Result Shannon Myers MD LAB BLOOD ORDERABLES Final Resul t Performing Organization Address City/[facility]/ZIP Co de Phone Number [facility] [address] [place] [address] * (ABNORMAL) Magnesium, Plasma (05/03/2025 3:16 AM EDT) Magnesium, Plasma 1.7(L) 1.9 - 2.4 mg/dL 05/03/2025 4:02 AM EDT [facility] Blood Venous blood specimen / Unknown Venipuncture / Unknown 05/03/2025 3:16 AM EDT 05/03/2025 3:24 AM EDT Result Shannon Myers MD LAB BLOOD ORDERABLES Final Resul t [facility] [address] [place] [address] * Phosphorus, Plasma (05/03/2025 3:16 AM EDT) Phosphorus, Plasma 3.6 2.5 - 4.5 mg/dL 05/03/2025 4:02 AM EDT [facility] Blood Venous blood specimen / Unknown Venipuncture / Unknown 05/03/2025 3:16 AM EDT 05/03/2025 3:24 AM EDT us Marjorie Myers MD LAB BLOOD ORDERABLES Final Resul t Performing Organization Address City/[facility]/ZIP Co de Phone Number [facility] [address] [place] [address] * Hepatitis B Core Total Antibody IgG,IgM (05/03/2025 3:16 AM EDT) Hepatitis B Core Total Antibody IgG,IgM Negative Negative 05/03/2025 4:28 AM EDT [facility] Blood Venous blood specimen / Unknown Venipuncture / Unknown 05/03/2025 3:16 AM EDT 05/03/2025 3:24 AM EDT us Diane Guzman MD LAB BLOOD ORDERABLES Final Result Performing Organization Address [facility] Co de Phone Number [facility] [address] [place] [address] * Hepatitis B Surface Antigen (05/03/2025 3:16 AM EDT) Hepatitis B Surf Antigen Negative Negative 05/03/2025 4:28 AM EDT [facility] Blood Venous blood specimen / Unknown Venipuncture / Unknown 05/03/2025 3:16 AM EDT 05/03/2025 3:24 AM EDT us Diane Guzman MD LAB BLOOD ORDERABLES Final Result Performing Organization Address [facility] Co de Phone Number [facility] [address] [place] [address] * Hepatitis B Surface Antibody, Quantitative (05/03/2025 3:16 AM EDT) Hepatitis B Surface Antibody, Quantitative <8.00 NonReactiv e: <8, Grayzone: 8 - <12, Reactive: >= 12 mIU/mL 05/03/2025 4:28 AM EDT [facility] Comment: Nonreactive. Individual is considered not immune to HBV infection. Blood Venous blood specimen / Unknown Venipuncture / Unknown 05/03/2025 3:16 AM EDT 05/03/2025 3:24 AM EDT us Diane Guzman MD LAB BLOOD ORDERABLES Final Result Performing Organization Address City/[facility]/ZIP Co de Phone Number [facility] [address] [place] [address] * Hepatitis A Antibody IgG (05/03/2025 3:16 AM EDT) [facility] Hepatitis A Antibody IgG Negative Negative 05/03/2025 4:28 AM EDT [facility] Blood Venous blood specimen / Unknown Venipuncture / Unknown 05/03/2025 3:16 AM EDT 05/03/2025 3:24 AM EDT us Diane Guzman MD LAB BLOOD ORDERABLES Final Result Performing Organization Address [facility] [place] [address] * (ABNORMAL) POCT glucose meter (05/02/2025 8:48 PM EDT) [facility] POCT Glucose 325(H) 74 - 99 [...] 05/02/2025 8:50 PM EDT [facility] Brick Handler ID Maribell Saeed 8:50 PM EDT [facility] Device ID [id number] 05/02/2025 8:50 PM EDT [facility]ALTH[facility]ARE LAB Specimen Type POC Capillary 05/02/2025 8:50 PM EDT [facility] Blood Capillary blood specimen / Unknown 05/02/2025 8:48 PM EDT 05/02/2025 8:50 PM EDT us Diane Guzman MD LAB POINT OF CARE T EST DOCKED DEVICE UNSOLICITED RESULTS Final Result Performing Organization Address City/[facility] Co de Phone Number HEALTHCARE LAB [address] [place] [address] * (ABNORMAL) POCT glucose meter (05/02/2025 4:30 PM EDT) [facility] POCT Glucose 250(H) 74 - 99 [...] Comment 05/02/2025 4:32 PM EDT HEALTHCARE LAB Brick Handler ID EfraínSebastián 4:32 PM EDT HEALTHCARE LAB Device ID [id number] 05/02/2025 4:32 PM EDT HEALTHCARE LAB Specimen Type POC Capillary 05/02/2025 4:32 PM EDT [facility] Blood Capillary blood specimen / Unknown 05/02/2025 4:30 PM EDT 05/02/2025 4:32 PM EDT Diane Guzman MD LAB POINT OF CARE T EST DOCKED DEVICE UNSOLICITED RESULTS Final Result [facility] [address] [place] [address] * Nasopharyngeal Respiratory Panel (05/02/2025 1:05 PM EDT) [facility] Nasopharyngeal Respiratory PCR Interpretation Not Detected for all analytes Not Detected for all analytes 05/02/2025 3:14 PM EDT [facility] Swab Nasopharyngeal structure / Unknown Non-blood Collection / Unknown 05/02/2025 1:05 PM EDT 05/02/2025 1:12 PM EDT Narrative [facility] - 05/02/2025 3:14 PM [...] Respiratory PCR Panel is performed using the [employer] e[employer] instrument. This test is FDA approved for use with Nasopharyngeal swabs only. This test is used for clinical purposes. It should not be regarded as investigational or for research. The [facility] Clinical Microbiology Laboratory is certified under the Clinical Laboratory Improvement Amendments of 1988 (CLIA-88) as qualified to perform high complexity clinical laboratory testing. us Diane Guzman MD LAB MICROBIOLOGY - GENERAL ORDERABLES Final Result [facility] [address] [place] [address] * (ABNORMAL) POCT glucose meter (05/02/2025 12:08 PM EDT) [facility] POCT Glucose 278(H) 74 - 99 mg/dL 05/02/2025 12:10 PM EDT [facility] Comment:Accuracy of a glucos e [...] for testing. Comment 05/02/2025 12:10 PM EDT [facility] Brick Handler ID Sebastián Kenny 12:10 PM EDT [facility] Device ID [id number] 05/02/2025 12:10 PM EDT HEALTHCARE LAB Specimen Type POC Capillary 05/02/2025 12:10 PM EDT [facility] Blood Capillary blood specimen / Unknown 05/02/2025 12:08 PM EDT 05/02/2025 12:10 PM EDT us Diane Guzman MD LAB POINT OF CARE T EST DOCKED DEVICE UNSOLICITED RESULTS Final Result [facility] [address] [place] [address] * (ABNORMAL) POCT glucose meter (05/02/2025 8:11 AM EDT) [facility] POCT Glucose 283(H) 74 - 99 [...] Comment 05/02/2025 8:12 AM EDT HEALTHCARE LAB Brick Handler ID Sebastián Kenny 8:12 AM EDT [facility] Device ID [id number] 05/02/2025 8:12 AM EDT HEALTHCARE LAB Specimen Type POC Capillary 05/02/2025 8:12 AM EDT [facility] Blood Capillary blood specimen / Unknown 05/02/2025 8:11 AM EDT 05/02/2025 8:12 AM EDT Diane Guzman MD LAB POINT OF CARE T EST DOCKED DEVICE UNSOLICITED RESULTS Final Result [facility] [address] [place] [address] * (ABNORMAL) POCT glucose meter (05/02/2025 4:01 AM EDT) [facility] POCT Glucose 320(H) 74 - 99 [...] for testing. Comment 05/02/2025 4:03 AM EDT [facility] Brick Handler ID Stella Coleman 05/02/20 4:03 AM EDT [facility] Device ID [id number] 05/02/2025 4:03 AM EDT [facility] Specimen Type POC Capillary 05/02/2025 4:03 AM EDT [facility] Blood Capillary blood specimen / Unknown 05/02/2025 4:01 AM EDT 05/02/2025 4:03 AM EDT us Marjorie Myers MD LAB POINT OF CARE TE ST DOCKED DEVICE UNSOLICITED RESULTS Final Result [facility] [address] [place] [id number] * (ABNORMAL) CBC and Differential (05/02/2025 3:10 AM EDT) WBC Count 7.39 3.70 - 10.30 10*3/uL LAB HEMATOLOGY METHOD 05/02/2025 3:23 AM EDT [facility] RBC Count 3.88(L) 4.60 - 6.10 10*6/uL LAB HEMATOLOGY METHOD 05/02/2025 3:23 AM EDT [facility] HGB 8.8(L) 13.7 - 17.5 g/dL LAB HEMATOLOGY METHOD 05/02/2025 3:23 AM EDT [facility] HCT 29.3(L) 40.0 - 51.0 % LAB HEMATOLOGY METHOD 05/02/2025 3:23 AM EDT [facility] Platelet Count 205 155 - 369 10*3/uL LAB HEMATOLOGY METHOD 05/02/2025 3:23 AM EDT [facility] MCV 76(L) 79 - 98 fL LAB HEMATOLOGY METHOD 05/02/2025 3:23 AM EDT [facility] MCH 22.7(L) 26.0 - 32.0 pg LAB HEMATOLOGY METHOD 05/02/2025 3:23 AM EDT [facility] MCHC 30.0(L) 30.7 - 35.5 g/dL LAB HEMATOLOGY METHOD 05/02/2025 3:23 AM EDT [facility] RDW 19.1(H) 11.5 - 14.5 % LAB HEMATOLOGY METHOD 05/02/2025 3:23 AM EDT [facility] MPV 8.5(L) 8.8 - 12.5 fL LAB HEMATOLOGY METHOD 05/02/2025 3:23 AM EDT [facility] nRBC 0.0 <=0.0 per 100 WBCs LAB HEMATOLOGY METHOD 05/02/2025 3:23 AM EDT [facility] Differential Type Automated LAB HEMATOLOGY METHOD 05/02/2025 3:23 AM EDT [facility] Neutrophils % 74 % LAB HEMATOLOGY METHOD 05/02/2025 3:23 AM EDT [facility] Lymphocytes % 13 % LAB HEMATOLOGY METHOD 05/02/2025 3:23 AM EDT [facility] Monocytes % 8 % LAB HEMATOLOGY METHOD 05/02/2025 3:23 AM EDT [facility] Eosinophils % 4 % LAB HEMATOLOGY METHOD 05/02/2025 3:23 AM EDT [facility] Basophils % 0 % LAB HEMATOLOGY METHOD 05/02/2025 3:23 AM EDT [facility] Immature Granulocytes % 1 % LAB HEMATOLOGY METHOD 05/02/2025 3:23 AM EDT [facility] Neutrophils Absolute 5.45 1.60 - 6.10 10*3/uL LAB HEMATOLOGY METHOD 05/02/2025 3:23 AM EDT [facility] Lymphocytes Absolute 0.96(L) 1.20 - 3.90 10*3/uL LAB HEMATOLOGY METHOD 05/02/2025 3:23 AM EDT [facility] Monocytes Absolute 0.62 0.30 - 0.90 10*3/uL LAB HEMATOLOGY METHOD 05/02/2025 3:23 AM EDT [facility] Eosinophils Absolute 0.30 0.00 - 0.50 10*3/uL LAB HEMATOLOGY METHOD 05/02/2025 3:23 AM EDT [facility] Basophils Absolute 0.01 0.00 - 0.10 10*3/uL LAB HEMATOLOGY METHOD 05/02/2025 3:23 AM EDT [facility] Immature Granulocytes Absolute 0.05 0.00 - 0.06 10*3/uL LAB HEMATOLOGY METHOD 05/02/2025 3:23 AM EDT [facility] Blood Venous blood specimen / Unknown Venipuncture / Unknown 05/02/2025 3:10 AM EDT 05/02/2025 3:14 AM EDT Narrative [facility] - 05/02/2025 3:23 AM EDT Therapeutic decision making should be based on absolute values, rather than percentages. us Marjorie Myers MD LAB BLOOD ORDERABLES Final Resul t [facility] [address] [place] [address] * (ABNORMAL) Basic Metabolic Panel, Plasma (05/02/2025 3:10 AM EDT) Glucose, Plasma 358(H) 74 - 99 mg/dL 05/02/2025 3:45 AM EDT [facility] BUN, Plasma 12 7 - 21 mg/dL 05/02/2025 3:45 AM EDT [facility] Creatinine, Plasma 0.73 0.70 - 1.20 mg/dL 05/02/2025 3:45 AM EDT [facility] BUN/Creatinine Ratio 16 05/02/2025 3:45 AM EDT [facility] Sodium, Plasma 134(L) 136 - 145 mmol/L 05/02/2025 3:45 AM EDT [facility] Potassium, Plasma 3.3(L) 3.6 - 4.9 mmol/L 05/02/2025 3:45 AM EDT [facility] Chloride, Plasma 90(L) 97 - 107 mmol/L 05/02/2025 3:45 AM EDT [facility] CO2, Plasma 37(H) 22 - 29 mmol/L 05/02/2025 3:45 AM EDT [facility] Anion Gap 7 6 - 16 mmol/L 05/02/2025 3:45 AM EDT [facility] Total Calcium, Plasma 8.7(L) 8.9 - 10.2 mg/dL 05/02/2025 3:45 AM EDT [facility] eGFRcr 112.9 mL/min/1.7 3m*2 05/02/2025 3:45 AM EDT [facility] Comment:Reported eGFRcr in m L/min/1.73m2 is based the CKD-EPI 2020 equation that does not use a race coefficient. Blood Venous blood specimen / Unknown Venipuncture / Unknown 05/02/2025 3:10 AM EDT 05/02/2025 3:15 AM EDT us Marjorie Myers MD LAB BLOOD ORDERABLES Final Resul t [facility] [address] [place] [address] * (ABNORMAL) Magnesium, Plasma (05/02/2025 3:10 AM EDT) Magnesium, Plasma 1.6(L) 1.9 - 2.4 mg/dL 05/02/2025 3:45 AM EDT [facility] Blood Venous blood specimen / Unknown Venipuncture / Unknown 05/02/2025 3:10 AM EDT 05/02/2025 3:15 AM EDT us Marjorie Myers MD LAB BLOOD ORDERABLES Final Resul t Performing Organization Address City/[facility]/ZIP Co de Phone Number [facility] [address] [place] [address] * Phosphorus, Plasma (05/02/2025 3:10 AM EDT) Phosphorus, Plasma 3.0 2.5 - 4.5 mg/dL 05/02/2025 3:45 AM EDT [facility] Blood Venous blood specimen / Unknown Venipuncture / Unknown 05/02/2025 3:10 AM EDT 05/02/2025 3:15 AM EDT us Marjorie Myers MD LAB BLOOD ORDERABLES Final Resul t [facility] [address] [place] [address] * Creatine Kinase (CK), Total (05/02/2025 3:10 AM EDT) Creatine Kinase, Plasma 50 49 - 320 U/L 05/02/2025 3:45 AM EDT [facility] Blood Venous blood specimen / Unknown Venipuncture / Unknown 05/02/2025 3:10 AM EDT 05/02/2025 3:15 AM EDT Marjorie Myers MD LAB BLOOD ORDERABLES Final Resul t Performing Organization Address City/[facility] Co de Phone Number [facility] [address] [place] [address] * (ABNORMAL) POCT glucose meter (05/01/2025 8:26 PM EDT) Pathologist [facility] POCT Glucose 316(H) 74 - [...] Comment 05/01/2025 8:27 PM EDT [facility] Brick Handler ID Stella Coleman 05/01/20 8:27 PM EDT [facility] Device ID [id number] 05/01/2025 8:27 PM EDT [facility] Specimen Type POC Capillary 05/01/2025 8:27 PM EDT [facility] Blood Capillary blood specimen / Unknown 05/01/2025 8:26 PM EDT 05/01/2025 8:27 PM EDT Marjorie Myers MD LAB POINT OF CARE TE ST DOCKED DEVICE UNSOLICITED RESULTS Final Result Performing Organization Address City/[facility] Co de Phone Number [facility]ARE [facility] [address] [place] [address] * (ABNORMAL) POCT glucose meter (05/01/2025 5:55 PM EDT) Pathologist [facility] POCT Glucose 294(H) 74 - [...] Comment 05/01/2025 5:57 PM EDT [facility]ALTHCARE LAB Brick Handler ID EfraínSebastián 5:57 PM EDT [facility] Device ID [id number] 05/01/2025 5:57 PM EDT [facility] Specimen Type POC Capillary 05/01/2025 5:57 PM EDT [facility] Blood Capillary blood specimen / Unknown 05/01/2025 5:55 PM EDT 05/01/2025 5:57 PM EDT us Marjorie Myers MD LAB POINT OF CARE TE ST DOCKED DEVICE UNSOLICITED RESULTS Final Result Performing Organization Address City/[facility] Co de Phone Number [facility]ARE [facility] [address] [place] [address] * (ABNORMAL) POCT glucose meter (05/01/2025 11:51 AM EDT) [facility] POCT Glucose 301(H) 74 - 99 mg/dL [...] 05/01/2025 11:53 AM EDT [facility] Brick Handler ID Sebastián Kenny 11:53 AM EDT [facility] Device ID [id number] 05/01/2025 11:53 AM EDT HEALTHCARE LAB Specimen Type POC Capillary 05/01/2025 11:53 AM EDT [facility]ALTH[facility]ARE LAB Blood Capillary blood specimen / Unknown 05/01/2025 11:51 AM EDT 05/01/2025 11:53 AM EDT us Marjorie Myers MD LAB POINT OF CARE TE ST DOCKED DEVICE UNSOLICITED RESULTS Final Result [facility] [address] [place] [address] * (ABNORMAL) POCT glucose meter (05/01/2025 9:13 [...] Comment 05/01/2025 9:15 AM EDT HEALTHCARE LAB Brick Handler ID Francisco Javier Martin 05/01/2025 9:15 AM EDT HEALTHCARE LAB Device ID [id number] 05/01/2025 9:15 AM EDT [facility]ALTHCARE LAB Specimen Type POC Capillary 05/01/2025 9:15 AM EDT [facility] Blood Capillary blood specimen / Unknown 05/01/2025 9:13 AM EDT 05/01/2025 9:15 AM EDT Marjorie Myers MD LAB POINT OF CARE TE ST DOCKED DEVICE UNSOLICITED RESULTS Final Result [facility] [address] [place] [address] * Surgical Pathology Exam (05/01/2025 8:13 AM EDT) Case Report Surgical Pathology Case: [id number] Authorizing Provider: Mary Vicente MD Collected: 05/01/2025 0813 Ordering Location: [facility] Received: 05/01/2025 0917 Pathologist: Vidya Ly MD Specimens: A) - Toe, Right, R 5th toe B) - Toe, Right, R 5th toe margin 05/09/2025 9:56 AM EDT [facility] Correction History Case amended to provide diagnosis after final decal sections received 05/09/2025 9:56 AM EDT [facility] Comment:These results have b een appended to a previously final verified report. Final Diagnosis A. RIGHT FIFTH TOE, AMPUTATION: - ULCER WITH SUPPURATIVE INFLAMMATION, GANGRENOUS NECROSIS, AND UNDERLYING ACUTE OSTEOMYELITIS. B. RIGHT FIFTH TOE MARGIN, RESECTION: - NO ACUTE OSTEOMYELITIS IDENTIFIED. 05/09/2025 9:56 AM EDT [facility] Amendment electronically signed by Vidya Ly MD on 05/09/2025 at 0956 EDT at 1233 EDT Comment:Corrected result: Pr eviously reported as [Previous value contains rich text formatting which cannot be displayed here] (see Result History) on 05/05/2025 at 1233 EDT. Clinical Information Other chronic osteomyelitis of right foot ([facility]) [M86.671] 05/09/2025 9:56 AM EDT [facility] Gross Description A. R [...] The wound extends into the underlying bone. [employer]per sections are submitted as follows: A1-A2: Necrotic lateral skin A3: Bone underlying gaping wound, following decalcification A4: Bone margin, following decalcification BLAS Kwok (ASC) B. R 5TH TOE MARGIN The specimen is received fresh and placed in formalin, labeled R 5th toe MARGIN , and consists of a 2.8 x 2.8 x 0.6 cm aggregate of hemorrhagic bony fragments. The specimen is entirely submitted in cassette B1, following decalcification. Cold Time: 25m BLAS Kwok (ASCP) 05/09/2025 9:56 AM EDT [facility] Note: 05/09/2025 9:56 AM EDT [facility] Comment:Corrected result: Pr eviously [...] Edited Result - Final Performing Organization Address City/[facility] [place] [address] * Type and Screen (05/01/2025 6:49 AM [...] ORDERA BLES Final Result Performing Organization Address [facility] de Phone Number BLOOD BANK [address] [place] [address] * (ABNORMAL) POCT glucose meter (05/01/2025 6:48 AM EDT) POCT Glucose 222(H) 74 - 99 mg/dL 05/01/2025 6:50 AM EDT [employer] LAB Comment:Accuracy of a glucos e result [...] Comment 05/01/2025 6:50 AM EDT [facility] Brick Handler ID Emelina Romero 6:50 AM EDT [facility] LAB Device ID [id number] 05/01/2025 6:50 AM EDT [facility] Specimen Type POC Venous 05/01/2025 6:50 AM EDT [facility] Blood Venous blood specimen / Unknown 05/01/2025 6:48 AM EDT 05/01/2025 6:50 AM EDT us Marjorie Myers MD LAB POINT OF CARE TE ST DOCKED DEVICE UNSOLICITED RESULTS Final Result Performing Organization Address City/[facility] Co de Phone Number HEALTHCARE LAB [address] [place] [address] * Creatine Kinase (CK), Total (05/01/2025 2:14 AM EDT) Creatine Kinase, Plasma 60 49 - 320 U/L 05/01/2025 2:53 AM EDT [facility] Blood Venous blood specimen / Unknown Venipuncture / Unknown 05/01/2025 2:14 AM EDT 05/01/2025 2:26 AM EDT us Marjorie Myers MD LAB BLOOD ORDERABLES Final Resul t Performing Organization Address City/[facility]/ZIP Co de Phone Number [facility] [address] [place] [address] * (ABNORMAL) CBC and Differential (05/01/2025 2:14 AM EDT) WBC Count 6.96 3.70 - 10.30 10*3/uL LAB HEMATOLOGY METHOD 05/01/2025 2:37 AM EDT [facility] RBC Count 4.23(L) 4.60 - 6.10 10*6/uL LAB HEMATOLOGY METHOD 05/01/2025 2:37 AM EDT [facility] HGB 9.8(L) 13.7 - 17.5 g/dL LAB HEMATOLOGY METHOD 05/01/2025 2:37 AM EDT [facility] HCT 32.5(L) 40.0 - 51.0 % LAB HEMATOLOGY METHOD 05/01/2025 2:37 AM EDT [facility] Platelet Count 218 155 - 369 10*3/uL LAB HEMATOLOGY METHOD 05/01/2025 2:37 AM EDT [facility] MCV 77(L) 79 - 98 fL LAB HEMATOLOGY METHOD 05/01/2025 2:37 AM EDT [facility] MCH 23.2(L) 26.0 - 32.0 pg LAB HEMATOLOGY METHOD 05/01/2025 2:37 AM EDT [facility] MCHC 30.2(L) 30.7 - 35.5 g/dL LAB HEMATOLOGY METHOD 05/01/2025 2:37 AM EDT [facility] RDW 19.1(H) 11.5 - 14.5 % LAB HEMATOLOGY METHOD 05/01/2025 2:37 AM EDT [facility] MPV 8.4(L) 8.8 - 12.5 fL LAB HEMATOLOGY METHOD 05/01/2025 2:37 AM EDT [facility] nRBC 0.0 <=0.0 per 100 WBCs LAB HEMATOLOGY METHOD 05/01/2025 2:37 AM EDT [facility] Differential Type Automated LAB HEMATOLOGY METHOD 05/01/2025 2:37 AM EDT [facility] Neutrophils % 76 % LAB HEMATOLOGY METHOD 05/01/2025 2:37 AM EDT [facility] Lymphocytes % 11 % LAB HEMATOLOGY METHOD 05/01/2025 2:37 AM EDT [facility] Monocytes % 8 % LAB HEMATOLOGY METHOD 05/01/2025 2:37 AM EDT [facility] Eosinophils % 4 % LAB HEMATOLOGY METHOD 05/01/2025 2:37 AM EDT [facility] Basophils % 0 % LAB HEMATOLOGY METHOD 05/01/2025 2:37 AM EDT [facility] Immature Granulocytes % 1 % LAB HEMATOLOGY METHOD 05/01/2025 2:37 AM EDT [facility] Neutrophils Absolute 5.26 1.60 - 6.10 10*3/uL LAB HEMATOLOGY METHOD 05/01/2025 2:37 AM EDT [facility] Lymphocytes Absolute 0.79(L) 1.20 - 3.90 10*3/uL LAB HEMATOLOGY METHOD 05/01/2025 2:37 AM EDT [facility] Monocytes Absolute 0.57 0.30 - 0.90 10*3/uL LAB HEMATOLOGY METHOD 05/01/2025 2:37 AM EDT [facility] Eosinophils Absolute 0.28 0.00 - 0.50 10*3/uL LAB HEMATOLOGY METHOD 05/01/2025 2:37 AM EDT [facility] Basophils Absolute 0.02 0.00 - 0.10 10*3/uL LAB HEMATOLOGY METHOD 05/01/2025 2:37 AM EDT [facility] Immature Granulocytes Absolute 0.04 0.00 - 0.06 10*3/uL LAB HEMATOLOGY METHOD 05/01/2025 2:37 AM EDT [facility] Blood Venous blood specimen / Unknown Venipuncture / Unknown 05/01/2025 2:14 AM EDT 05/01/2025 2:26 AM EDT Narrative [facility] - 05/01/2025 2:37 AM EDT Therapeutic decision making should be based on absolute values, rather than percentages. us Marjorie Myers MD LAB BLOOD ORDERABLES Final Resul t [facility] [address] [place] [address] * (ABNORMAL) Basic Metabolic Panel, Plasma (05/01/2025 2:14 AM EDT) Glucose, Plasma 266(H) 74 - 99 mg/dL 05/01/2025 2:53 AM EDT [facility] BUN, Plasma 9 7 - 21 mg/dL 05/01/2025 2:53 AM EDT [facility] Creatinine, Plasma 0.71 0.70 - 1.20 mg/dL 05/01/2025 2:53 AM EDT [facility] BUN/Creatinine Ratio 13 05/01/2025 2:53 AM EDT [facility] Sodium, Plasma 137 136 - 145 mmol/L 05/01/2025 2:53 AM EDT [facility] Potassium, Plasma 3.4(L) 3.6 - 4.9 mmol/L 05/01/2025 2:53 AM EDT [facility] Chloride, Plasma 91(L) 97 - 107 mmol/L 05/01/2025 2:53 AM EDT [facility] CO2, Plasma 36(H) 22 - 29 mmol/L 05/01/2025 2:53 AM EDT [facility] Anion Gap 10 6 - 16 mmol/L 05/01/2025 2:53 AM EDT [facility] Total Calcium, Plasma 8.6(L) 8.9 - 10.2 mg/dL 05/01/2025 2:53 AM EDT [facility] eGFRcr 113.9 mL/min/1.7 3m*2 05/01/2025 2:53 AM EDT [facility] Comment:Reported eGFRcr in m L/min/1.73m2 is based the CKD-EPI 2020 equation that does not use a race coefficient. Blood Venous blood specimen / Unknown Venipuncture / Unknown 05/01/2025 2:14 AM EDT 05/01/2025 2:26 AM EDT Marjorie Myers MD LAB BLOOD ORDERABLES Final Resul t Performing Organization Address City/[facility]/ZIP Co de Phone Number [facility] [address] [place] [address] * (ABNORMAL) Magnesium, Plasma (05/01/2025 2:14 AM EDT) Magnesium, Plasma 1.8(L) 1.9 - 2.4 mg/dL 05/01/2025 2:53 AM EDT [facility] Blood Venous blood specimen / Unknown Venipuncture / Unknown 05/01/2025 2:14 AM EDT 05/01/2025 2:26 AM EDT us Marjorie Myers MD LAB BLOOD ORDERABLES Final Resul t [facility] [address] [place] [address] * Phosphorus, Plasma (05/01/2025 2:14 AM EDT) Phosphorus, Plasma 3.0 2.5 - 4.5 mg/dL 05/01/2025 2:53 AM EDT [facility] Blood Venous blood specimen / Unknown Venipuncture / Unknown 05/01/2025 2:14 AM EDT 05/01/2025 2:26 AM EDT Marjorie Myers MD LAB BLOOD ORDERABLES Final Resul t [facility] [address] [place] [address] * (ABNORMAL) POCT glucose meter (04/30/2025 8:21 [...] Comment 04/30/2025 8:23 PM EDT [facility] Brick Handler ID Sandra Perez 04/30/20 8:23 PM EDT [facility] LAB Device ID [id number] 04/30/2025 8:23 PM EDT [facility] LAB Specimen Type POC Capillary 04/30/2025 8:23 PM EDT [facility] Blood Capillary blood specimen / Unknown 04/30/2025 8:21 PM EDT 04/30/2025 8:23 PM EDT Marjorie Myers MD LAB POINT OF CARE TE ST DOCKED DEVICE UNSOLICITED RESULTS Final Result [facility] [address] [place] [address] * (ABNORMAL) POCT glucose meter (04/30/2025 4:19 [...] Comment 04/30/2025 4:54 PM EDT [facility] Brick Handler ID Priyanka Negrete 04/30/20 4:54 PM EDT [facility]ALTH[facility]ARE LAB Device ID [id number] 04/30/2025 4:54 PM EDT [facility] Specimen Type POC Capillary 04/30/2025 4:54 PM EDT [facility] Blood Capillary blood specimen / Unknown 04/30/2025 4:19 PM EDT 04/30/2025 4:54 PM EDT Marjorie Myers MD LAB POINT OF CARE TE ST DOCKED DEVICE UNSOLICITED RESULTS Final Result Performing Organization Address City/State/[facility] Co de Phone Number [facility] [address] [place] [address] * (ABNORMAL) POCT glucose meter (04/30/2025 12:11 PM EDT) [facility] POCT Glucose 226(H) 74 - 99 [...] 04/30/2025 12:50 PM EDT [facility] Brick Handler ID Priyanka Negrete 04/30/20 12:50 PM EDT [facility] Device ID [id number] 04/30/2025 12:50 PM EDT [facility] LAB Specimen Type POC Capillary 04/30/2025 12:50 PM EDT [facility] Blood Capillary blood specimen / Unknown 04/30/2025 12:11 PM EDT 04/30/2025 12:50 PM EDT us Marjorie Myers MD LAB POINT OF CARE TE ST DOCKED DEVICE UNSOLICITED RESULTS Final Result Performing Organization Address City/[facility]/ZIP Co de Phone Number [facility]ALTH[facility]ARE LAB [address] [place] [address] * (ABNORMAL) POCT glucose meter (04/30/2025 8:18 [...] Comment 04/30/2025 8:55 AM EDT [facility] Brick Handler ID Priyanka Negrete 04/30/20 8:55 AM EDT [employer] LAB Device ID [id number] 04/30/2025 8:55 AM EDT [facility] Specimen Type POC Capillary 04/30/2025 8:55 AM EDT [facility] Blood Capillary blood specimen / Unknown 04/30/2025 8:18 AM EDT 04/30/2025 8:55 AM EDT us Marjorie Myers MD LAB POINT OF CARE TE ST DOCKED DEVICE UNSOLICITED RESULTS Final Result Performing Organization Address City/[facility]/ZIP Co de Phone Number [facility]ALTH[facility]ARE LAB [address] [place] [address] * (ABNORMAL) CBC and Differential (04/30/2025 3:19 AM EDT) WBC Count 8.84 3.70 - 10.30 10*3/uL LAB HEMATOLOGY METHOD 04/30/2025 3:35 AM EDT [facility] RBC Count 4.31(L) 4.60 - 6.10 10*6/uL LAB HEMATOLOGY METHOD 04/30/2025 3:35 AM EDT [facility] HGB 9.6(L) 13.7 - 17.5 g/dL LAB HEMATOLOGY METHOD 04/30/2025 3:35 AM EDT [facility] HCT 32.6(L) 40.0 - 51.0 % LAB HEMATOLOGY METHOD 04/30/2025 3:35 AM EDT [facility] Platelet Count 245 155 - 369 10*3/uL LAB HEMATOLOGY METHOD 04/30/2025 3:35 AM EDT [facility] MCV 76(L) 79 - 98 fL LAB HEMATOLOGY METHOD 04/30/2025 3:35 AM EDT [facility] MCH 22.3(L) 26.0 - 32.0 pg LAB HEMATOLOGY METHOD 04/30/2025 3:35 AM EDT [facility] MCHC 29.4(L) 30.7 - 35.5 g/dL LAB HEMATOLOGY METHOD 04/30/2025 3:35 AM EDT [facility] RDW 19.1(H) 11.5 - 14.5 % LAB HEMATOLOGY METHOD 04/30/2025 3:35 AM EDT [facility] MPV 8.5(L) 8.8 - 12.5 fL LAB HEMATOLOGY METHOD 04/30/2025 3:35 AM EDT [facility] nRBC 0.0 <=0.0 per 100 WBCs LAB HEMATOLOGY METHOD 04/30/2025 3:35 AM EDT [facility] Differential Type Automated LAB HEMATOLOGY METHOD 04/30/2025 3:35 AM EDT [facility] Neutrophils % 78 % LAB HEMATOLOGY METHOD 04/30/2025 3:35 AM EDT [facility] Lymphocytes % 11 % LAB HEMATOLOGY METHOD 04/30/2025 3:35 AM EDT [facility] Monocytes % 7 % LAB HEMATOLOGY METHOD 04/30/2025 3:35 AM EDT [facility] Eosinophils % 3 % LAB HEMATOLOGY METHOD 04/30/2025 3:35 AM EDT [facility] Basophils % 0 % LAB HEMATOLOGY METHOD 04/30/2025 3:35 AM EDT [facility] Immature Granulocytes % 1 % LAB HEMATOLOGY METHOD 04/30/2025 3:35 AM EDT [facility] Neutrophils Absolute 6.90(H) 1.60 - 6.10 10*3/uL LAB HEMATOLOGY METHOD 04/30/2025 3:35 AM EDT [facility] Lymphocytes Absolute 0.95(L) 1.20 - 3.90 10*3/uL LAB HEMATOLOGY METHOD 04/30/2025 3:35 AM EDT [facility] Monocytes Absolute 0.64 0.30 - 0.90 10*3/uL LAB HEMATOLOGY METHOD 04/30/2025 3:35 AM EDT [facility] Eosinophils Absolute 0.29 0.00 - 0.50 10*3/uL LAB HEMATOLOGY METHOD 04/30/2025 3:35 AM EDT [facility] Basophils Absolute 0.02 0.00 - 0.10 10*3/uL LAB HEMATOLOGY METHOD 04/30/2025 3:35 AM EDT [facility] Immature Granulocytes Absolute 0.04 0.00 - 0.06 10*3/uL LAB HEMATOLOGY METHOD 04/30/2025 3:35 AM EDT [facility] Blood Venous blood specimen / Unknown Venipuncture / Unknown 04/30/2025 3:19 AM EDT 04/30/2025 3:26 AM EDT Narrative [facility] - 04/30/2025 3:35 AM EDT Therapeutic decision making should be based on absolute values, rather than percentages. us Marjorie Myers MD LAB BLOOD ORDERABLES Final Resul t [facility] [address] [place] [address] * (ABNORMAL) Basic Metabolic Panel, Plasma (04/30/2025 3:19 AM EDT) Glucose, Plasma 254(H) 74 - 99 mg/dL 04/30/2025 3:56 AM EDT [facility] BUN, Plasma 11 7 - 21 mg/dL 04/30/2025 3:56 AM EDT [facility] Creatinine, Plasma 0.77 0.70 - 1.20 mg/dL 04/30/2025 3:56 AM EDT [facility] BUN/Creatinine Ratio 14 04/30/2025 3:56 AM EDT [facility] Sodium, Plasma 137 136 - 145 mmol/L 04/30/2025 3:56 AM EDT [facility] Potassium, Plasma 3.3(L) 3.6 - 4.9 mmol/L 04/30/2025 3:56 AM EDT [facility] Chloride, Plasma 91(L) 97 - 107 mmol/L 04/30/2025 3:56 AM EDT [facility] CO2, Plasma 36(H) 22 - 29 mmol/L 04/30/2025 3:56 AM EDT [facility] Anion Gap 10 6 - 16 mmol/L 04/30/2025 3:56 AM EDT [facility] Total Calcium, Plasma 8.7(L) 8.9 - 10.2 mg/dL 04/30/2025 3:56 AM EDT [facility] eGFRcr 111.1 mL/min/1.7 3m*2 04/30/2025 3:56 AM EDT [facility] Comment:Reported eGFRcr in m L/min/1.73m2 is based the CKD-EPI 2020 equation that does not use a race coefficient. Blood Venous blood specimen / Unknown Venipuncture / Unknown 04/30/2025 3:19 AM EDT 04/30/2025 3:26 AM EDT us Marjorie Myers MD LAB BLOOD ORDERABLES Final Resul t [facility] [address] [place] [address] * (ABNORMAL) Magnesium, Plasma (04/30/2025 3:19 AM EDT) Magnesium, Plasma 1.5(L) 1.9 - 2.4 mg/dL 04/30/2025 3:56 AM EDT [facility] Blood Venous blood specimen / Unknown Venipuncture / Unknown 04/30/2025 3:19 AM EDT 04/30/2025 3:26 AM EDT us Marjorie Myers MD LAB BLOOD ORDERABLES Final Resul t [facility] [address] [place] [address] * Phosphorus, Plasma (04/30/2025 3:19 AM EDT) [facility] Phosphorus, Plasma 2.7 2.5 - 4.5 mg/dL 04/30/2025 3:56 AM EDT [facility] Blood Venous blood specimen / Unknown Venipuncture / Unknown 04/30/2025 3:19 AM EDT 04/30/2025 3:26 AM EDT Marjorie Myers MD LAB BLOOD ORDERABLES Final Resul t [facility] [address] [place] [address] * (ABNORMAL) POCT glucose meter (04/29/2025 7:38 PM EDT) [facility] POCT Glucose 191(H) 74 - 99 [...] Comment 04/29/2025 9:20 PM EDT [facility]ALTH[facility] LAB Brick Handler ID Ervin Du V 025 9:20 PM EDT [facility]ALTH[facility]ARE LAB Device ID [id number] 04/29/2025 9:20 PM EDT [facility] LAB Specimen Type POC Capillary 04/29/2025 9:20 PM EDT [facility] Blood Capillary blood specimen / Unknown 04/29/2025 7:38 PM EDT 04/29/2025 9:20 PM EDT us Marjorie Myers MD LAB POINT OF CARE TE ST DOCKED DEVICE UNSOLICITED RESULTS Final Result [facility] [address] [place] [address] * (ABNORMAL) POCT glucose meter (04/29/2025 5:21 PM EDT) [facility] POCT Glucose 241(H) 74 - 99 [...] 04/29/2025 5:23 PM EDT [facility] Brick Handler ID Rocio Dozier 04/29/20 5:23 PM EDT [facility] Device ID [id number] 04/29/2025 5:23 PM EDT [facility] Specimen Type POC Capillary 04/29/2025 5:23 PM EDT [facility] Blood Capillary blood specimen / Unknown 04/29/2025 5:21 PM EDT 04/29/2025 5:23 PM EDT Marjorie Myers MD LAB POINT OF CARE TE ST DOCKED DEVICE UNSOLICITED RESULTS Final Result [facility] [address] [place] [address] * (ABNORMAL) POCT glucose meter (04/29/2025 11:15 AM EDT) [facility] POCT Glucose 204(H) 74 - 99 [...] 04/29/2025 11:17 AM EDT [facility] Brick Handler ID Rocio Dozier 04/29/20 11:17 AM EDT [facility] Device ID [id number] 04/29/2025 11:17 AM EDT [facility] Specimen Type POC Capillary 04/29/2025 11:17 AM EDT [facility] Blood Capillary blood specimen / Unknown 04/29/2025 11:15 AM EDT 04/29/2025 11:17 AM EDT Marjorie Myers MD LAB POINT OF CARE TE ST DOCKED DEVICE UNSOLICITED RESULTS Final Result Performing Organization Address City/[facility] Co de Phone Number [facility]ALTH[facility]ARE LAB [address] [place] [address] * (ABNORMAL) POCT glucose meter (04/29/2025 7:13 AM EDT) [facility] POCT Glucose 269(H) 74 - 99 mg/dL [...] Comment 04/29/2025 7:14 AM EDT [facility]ALTH[facility] Brick Handler ID Rocio Dozier 04/29/20 7:14 AM EDT HEALTHCARE LAB Device ID [id number] 04/29/2025 7:14 AM EDT [facility] Specimen Type POC Capillary 04/29/2025 7:14 AM EDT [facility] Blood Capillary blood specimen / Unknown 04/29/2025 7:13 AM EDT 04/29/2025 7:14 AM EDT Marjorie Myers MD LAB POINT OF CARE TE ST DOCKED DEVICE UNSOLICITED RESULTS Final Result Performing Organization Address City/[facility]/ZIP Co de Phone Number [facility]ALTH[facility]ARE LAB [address] [place] [address] * Folate (04/29/2025 3:04 AM EDT) [facility] Folate, Serum 10.5 >4.6 ng/mL 04/29/2025 4:05 AM EDT [facility] Blood Venous blood specimen / Unknown Venipuncture / Unknown 04/29/2025 3:04 AM EDT 04/29/2025 3:20 AM EDT us Sy De La Fuente APRN, DNP LAB BLOOD ORDERABLES Fin al Result [facility] [address] [place] [address] * Vitamin B12 (04/29/2025 3:04 AM EDT) Vitamin B12, Serum 338 210 - 1,033 pg/mL 04/29/2025 4:06 AM EDT [facility] Blood Venous blood specimen / Unknown Venipuncture / Unknown 04/29/2025 3:04 AM EDT 04/29/2025 3:20 AM EDT us Sy De La Fuente APRN, DNP LAB BLOOD ORDERABLES Fin al Result Performing Organization Address [facility]/ZIP Co de Phone Number [facility] [address] [place] [address] * (ABNORMAL) Iron & Total Iron Binding Capacity, Plasma (Includes Transferrin) (04/29/2025 3:04 AM EDT) Iron, Plasma 36(L) 50 - 170 ug/dL 04/29/2025 3:55 AM EDT [facility] Transferrin, Plasma 197(L) 200 - 360 mg/dL 04/29/2025 3:55 AM EDT [facility] Total Iron Binding Capacity, Plasma 246 240 - 450 ug/mL 04/29/2025 3:55 AM EDT [facility] Transferrin Saturation 15 14 - 50 % 04/29/2025 3:55 AM EDT [facility] Blood Venous blood specimen / Unknown Venipuncture / Unknown 04/29/2025 3:04 AM EDT 04/29/2025 3:19 AM EDT us Sy De La Fuente APRN, DNP LAB BLOOD ORDERABLES Fin al Result [facility] [address] [place] [address] * Ferritin (04/29/2025 3:04 AM EDT) Ferritin, Serum 40 20 - 400 ng/mL 04/29/2025 4:06 AM EDT [facility] Blood Venous blood specimen / Unknown Venipuncture / Unknown 04/29/2025 3:04 AM EDT 04/29/2025 3:20 AM EDT us Sy De La Fuente APRN, DNP LAB BLOOD ORDERABLES Fin al Result Performing Organization Address [facility] Phone Number [facility] [address] [place] [address] * Cortisol (04/29/2025 3:04 AM EDT) Cortisol 2.80 Before 10am: 3.7 - 19.4. After 5pm: 2.9 - 17.3 ug/dL 04/29/2025 4:22 AM EDT [facility] Comment:Testing performed on [employer], standardized against CORRECTION Reference Standard concentration values assigned by LC-MS/MS and verified by BCR 192 and BCR 193 certified reference materials. Blood Venous blood specimen / Unknown Venipuncture / Unknown 04/29/2025 3:04 AM EDT 04/29/2025 3:19 AM EDT us Sy De La Fuente APRN, [facility] LAB REF LAB BLOOD AND FL UID ORD Final Result Performing Organization Address [facility]) Number [facility] [address] [place] [address] * TSH (04/29/2025 3:04 AM EDT) Thyroid Stimulating Hormone, Plasma 1.58 0.40 - 4.20 uIU/mL 04/29/2025 3:55 AM EDT [facility] Blood Venous blood specimen / Unknown Venipuncture / Unknown 04/29/2025 3:04 AM EDT 04/29/2025 3:19 AM EDT us Sy De La Fuente APRN, DENISE LAB BLOOD ORDERABLES Fin al Result Performing Organization Address [facility] Phone Number [facility] [address] [place] [address] * (ABNORMAL) Hemoglobin A1c (04/29/2025 3:04 AM EDT) Hemoglobin A1c 8.9(H) <5.7 % 04/29/2025 9:40 AM EDT [facility] Blood Venous blood specimen / Unknown Venipuncture / Unknown 04/29/2025 3:04 AM EDT 04/29/2025 3:19 AM EDT Narrative [facility] - 04/29/2025 9:40 AM [...] (suppl 1):S1-S135. Sy De La Fuente APRN, DENISE LAB BLOOD ORDERABLES Fin al Result [facility] [address] [place] [address] * Phosphorus (04/29/2025 3:04 AM EDT) Phosphorus, Plasma 3.6 2.5 - 4.5 mg/dL 04/29/2025 3:55 AM EDT [facility] Blood Venous blood specimen / Unknown Venipuncture / Unknown 04/29/2025 3:04 AM EDT 04/29/2025 3:19 AM EDT Sy De La Fuente APRN, DNP LAB BLOOD ORDERABLES Fin al Result [facility] [address] [place] [address] * (ABNORMAL) Magnesium, Plasma (04/29/2025 3:04 AM EDT) Magnesium, Plasma 1.7(L) 1.9 - 2.4 mg/dL 04/29/2025 3:55 AM EDT [facility] Blood Venous blood specimen / Unknown Venipuncture / Unknown 04/29/2025 3:04 AM EDT 04/29/2025 3:19 AM EDT us Sy De La Fuente IN [employer]OP SERVICE TECHNICIAN, DNP LAB BLOOD ORDERABLES Fin al Result [facility] [address] [place] [address] * (ABNORMAL) Comprehensive metabolic panel (04/29/2025 3:04 AM EDT) Glucose, Plasma 219(H) 74 - 99 mg/dL 04/29/2025 3:55 AM EDT [facility] BUN, Plasma 9 7 - 21 mg/dL 04/29/2025 3:55 AM EDT [facility] Creatinine, Plasma 0.94 0.70 - 1.20 mg/dL 04/29/2025 3:55 AM EDT [facility] BUN/Creatinine Ratio 04/29/2025 3:55 AM EDT [facility] Sodium, Plasma 137 136 - 145 mmol/L 04/29/2025 3:55 AM EDT [facility] Potassium, Plasma 3.1(L) 3.6 - 4.9 mmol/L 04/29/2025 3:55 AM EDT [facility] Chloride, Plasma 92(L) 97 - 107 mmol/L 04/29/2025 3:55 AM EDT [facility] CO2, Plasma 38(H) 22 - 29 mmol/L 04/29/2025 3:55 AM EDT [facility] Anion Gap 7 6 - 16 mmol/L 04/29/2025 3:55 AM EDT [facility] Total Calcium, Plasma 8.6(L) 8.9 - 10.2 mg/dL 04/29/2025 3:55 AM EDT [facility] Total Protein 7.4 6.3 - 7.9 g/dL 04/29/2025 3:55 AM EDT [facility] Albumin, Plasma 3.3(L) 3.5 - 5.2 g/dL 04/29/2025 3:55 AM EDT [facility] AST, Plasma 18 10 - 50 U/L 04/29/2025 3:55 AM EDT [facility] ALT, Plasma 11 10 - 50 U/L 04/29/2025 3:55 AM EDT [facility] Alkaline Phosphatase, Plasma 55 40 - 115 U/L 04/29/2025 3:55 AM EDT [facility] Total Bilirubin, Plasma 0.8 0.2 - 1.1 mg/dL 04/29/2025 3:55 AM EDT [facility] eGFRcr 100.6 mL/min/1.7 3m*2 04/29/2025 3:55 AM EDT [facility] Comment:Reported eGFRcr in m L/min/1.73m2 is based the CKD-EPI 2020 equation that does not use a race coefficient. Blood Venous blood specimen / Unknown Venipuncture / Unknown 04/29/2025 3:04 AM EDT 04/29/2025 3:19 AM EDT us Sy De La Fu[facility] IN [employer]IC[employer], DNP LAB BLOOD ORDERABLES Fin al Result [facility] [address] [place] [address] * (ABNORMAL) CBC and Differential (04/29/2025 3:04 AM EDT) WBC Count 6.68 3.70 - 10.30 10*3/uL LAB HEMATOLOGY METHOD 04/29/2025 3:16 AM EDT [facility] RBC Count 4.21(L) 4.60 - 6.10 10*6/uL LAB HEMATOLOGY METHOD 04/29/2025 3:16 AM EDT [facility] HGB 9.4(L) 13.7 - 17.5 g/dL LAB HEMATOLOGY METHOD 04/29/2025 3:16 AM EDT [facility] HCT 32.0(L) 40.0 - 51.0 % LAB HEMATOLOGY METHOD 04/29/2025 3:16 AM EDT [facility] Platelet Count 249 155 - 369 10*3/uL LAB HEMATOLOGY METHOD 04/29/2025 3:16 AM EDT [facility] MCV 76(L) 79 - 98 fL LAB HEMATOLOGY METHOD 04/29/2025 3:16 AM EDT [facility] MCH 22.3(L) 26.0 - 32.0 pg LAB HEMATOLOGY METHOD 04/29/2025 3:16 AM EDT [facility] MCHC 29.4(L) 30.7 - 35.5 g/dL LAB HEMATOLOGY METHOD 04/29/2025 3:16 AM EDT [facility] RDW 19.6(H) 11.5 - 14.5 % LAB HEMATOLOGY METHOD 04/29/2025 3:16 AM EDT [facility] MPV 8.4(L) 8.8 - 12.5 fL LAB HEMATOLOGY METHOD 04/29/2025 3:16 AM EDT [facility] nRBC 0.0 <=0.0 per 100 WBCs LAB HEMATOLOGY METHOD 04/29/2025 3:16 AM EDT [facility] Differential Type Automated LAB HEMATOLOGY METHOD 04/29/2025 3:16 AM EDT [facility] Neutrophils % 75 % LAB HEMATOLOGY METHOD 04/29/2025 3:16 AM EDT [facility] Lymphocytes % 11 % LAB HEMATOLOGY METHOD 04/29/2025 3:16 AM EDT [facility] Monocytes % 9 % LAB HEMATOLOGY METHOD 04/29/2025 3:16 AM EDT [facility] Eosinophils % 4 % LAB HEMATOLOGY METHOD 04/29/2025 3:16 AM EDT [facility] Basophils % 0 % LAB HEMATOLOGY METHOD 04/29/2025 3:16 AM EDT [facility] Immature Granulocytes % 1 % LAB HEMATOLOGY METHOD 04/29/2025 3:16 AM EDT [facility] Neutrophils Absolute 5.01 1.60 - 6.10 10*3/uL LAB HEMATOLOGY METHOD 04/29/2025 3:16 AM EDT [facility] Lymphocytes Absolute 0.75(L) 1.20 - 3.90 10*3/uL LAB HEMATOLOGY METHOD 04/29/2025 3:16 AM EDT [facility] Monocytes Absolute 0.59 0.30 - 0.90 10*3/uL LAB HEMATOLOGY METHOD 04/29/2025 3:16 AM EDT [facility] Eosinophils Absolute 0.26 0.00 - 0.50 10*3/uL LAB HEMATOLOGY METHOD 04/29/2025 3:16 AM EDT [facility] Basophils Absolute 0.03 0.00 - 0.10 10*3/uL LAB HEMATOLOGY METHOD 04/29/2025 3:16 AM EDT [facility] Immature Granulocytes Absolute 0.04 0.00 - 0.06 10*3/uL LAB HEMATOLOGY METHOD 04/29/2025 3:16 AM EDT [facility] Blood Venous blood specimen / Unknown Venipuncture / Unknown 04/29/2025 3:04 AM EDT 04/29/2025 3:13 AM EDT Narrative [facility] - 04/29/2025 3:16 AM EDT Therapeutic decision making should be based on absolute values, rather than percentages. us Sy De La Fuente IN SHOP SERVICE TECHNICIAN, DNP LAB BLOOD ORDERABLES Fin al Result [facility] [address] [place] [address] * (ABNORMAL) POCT glucose meter (04/28/2025 9:06 PM EDT) [facility] Signature POCT Glucose 212(H) 74 - 99 [...] Comment 04/28/2025 9:08 PM EDT [facility] Brick Handler ID Frankie Poole 04/28/2025 9:08 PM EDT [facility] Device ID [id number] 04/28/2025 9:08 PM EDT [facility] Specimen Type POC Capillary 04/28/2025 9:08 PM EDT [facility] Blood Capillary blood specimen / Unknown 04/28/2025 9:06 PM EDT 04/28/2025 9:08 PM EDT Marjorie Myers MD LAB POINT OF CARE TE ST DOCKED DEVICE UNSOLICITED RESULTS Final Result Performing Organization Address City/[facility]/ZIP Co de Phone Number [facility]ALTH[facility]ARE LAB [address] [place] [address] * (ABNORMAL) POCT glucose meter (04/28/2025 5:34 [...] for testing. Comment 04/28/2025 5:38 PM EDT [facility] Brick Handler ID Ailyn Finch 5:38 PM EDT [facility]ALTH[facility] LAB Device ID [id number] 04/28/2025 5:38 PM EDT [facility] Specimen Type POC Capillary 04/28/2025 5:38 PM EDT [facility] Blood Capillary blood specimen / Unknown 04/28/2025 5:34 PM EDT 04/28/2025 5:38 PM EDT Marjorie Myers MD LAB POINT OF CARE TE ST DOCKED DEVICE UNSOLICITED RESULTS Final Result Performing Organization Address City/[facility]/ZIP Co de Phone Number [facility] [address] [place] [address] * (ABNORMAL) POCT glucose meter (04/28/2025 3:51 [...] Comment 04/28/2025 3:54 PM EDT [facility] Brick Handler ID Ailyn Finch 3:54 PM EDT [facility] Device ID [id number] 04/28/2025 3:54 PM EDT [facility] Specimen Type POC Capillary 04/28/2025 3:54 PM EDT [facility] Blood Capillary blood specimen / Unknown 04/28/2025 3:51 PM EDT 04/28/2025 3:54 PM EDT us Marjorie Myers MD LAB POINT OF CARE TE ST DOCKED DEVICE UNSOLICITED RESULTS Final Result Performing Organization Address City/State/[facility] Co de Phone Number [facility]ALTH[facility]ARE LAB [address] [place] [address] * VAS Ankle Brachial Index - GABBI [...] are demonstrated at the levels of the PARK WORKER and DPA. Segmental pressures are within normal limits with a PARK WORKER GABBI of 1.1 (172 mmHg) and a DPA GABBI of 1.0 (149 mmHg). Digit pressures are of 122 mmHg. Left: Multiphasic waveforms are demonstrated at the levels of the PARK WORKER and DPA. Segmental pressures are within normal limits with a PARK WORKER GABBI of 1.1 (164 mmHg) and a DPA GABBI of 1.0 (153 mmHg). Digit pressures are of 151 mmHg. Procedure Note Chris Schaefer MD - 04/28/2025 CLINICAL INDICATION: Diabetic foot ulcer TECHNIQUE: Non-invasive, continuous wave Doppler exam with segmental pressures andspectral analysis of the lower extremity was performed. COMPARISON: None. FINDINGS: Right: Multiphasic waveforms are demonstrated at the levels of the PARK WORKER andDPA. Segmental pressures are within normal limits with a PARK WORKER GABBI of 1.1(172 mmHg) and a DPA GABBI of 1.0 (149 mmHg). Digit pressures are of 122mmHg. Left: Multiphasic waveforms are demonstrated at the levels of the PARK WORKER andDPA. Segmental pressures are within normal limits with a PARK WORKER GABBI of 1.1(164 mmHg) and a DPA [...] 4:14 PM us Sy De La Fuente IN SHOP SERVICE TECHNICIAN, DNP CV VASCULAR PROCEDURES F inal Result * Multi Drug Resistance Test (04/28/2025 1:44 PM EDT) Culture No Multi Drug Resistant Organisms Isolated 04/29/2025 2:32 PM EDT [facility] Swab (Nares and Saba Rectal) Non-blood Collection / Unknown 04/28/2025 1:44 PM EDT 04/28/2025 2:15 PM EDT Narrative [facility] - 04/29/2025 2:32 PM EDT This test was developed and its performance characteristics determined by the [facility] Clinical Microbiology Laboratory. Although the media is FDA-approved, it is not FDA-approved for all specimen types submitted. The FDA has determined that such clearance or approval is not necessary. This test is used for surveillance purposes. It should not be regarded as investigational or for research. The [facility] Clinical Microbiology Laboratory is certified under the Clinical Laboratory Improvement Amendments of 1988 (CLIA-88) as qualified to perform high complexity clinical laboratory testing. us Sy De La Fuente APRN, DNP LAB MICROBIOLOGY - [facility] AL ORDERABLES Final Result [facility] [address] [place] [address] * (ABNORMAL) POCT glucose meter (04/28/2025 12:52 [...] Comment 04/28/2025 12:56 PM EDT [facility] Brick Handler ID Ailyn Finch 12:56 PM EDT [facility] Device ID [id number] 04/28/2025 12:56 PM EDT [facility] Specimen Type POC Capillary 04/28/2025 12:56 PM EDT [facility] Blood Capillary blood specimen / Unknown 04/28/2025 12:52 PM EDT 04/28/2025 12:56 PM EDT us Marjorie Myers MD LAB POINT OF CARE TE ST DOCKED DEVICE UNSOLICITED RESULTS Final Result Performing Organization Address City/[facility]/ZIP Co de Phone Number [facility] [address] [place] [address] * (ABNORMAL) POCT glucose meter (04/28/2025 11:39 AM EDT) [facility] POCT Glucose 271(H) 74 - 99 [...] Comment 04/28/2025 11:44 AM EDT [facility] Brick Handler ID Ailyn Finch 11:44 AM EDT [facility] Device ID [id number] 04/28/2025 11:44 AM EDT [facility] Specimen Type POC Capillary 04/28/2025 11:44 AM EDT [facility] Blood Capillary blood specimen / Unknown 04/28/2025 11:39 AM EDT 04/28/2025 11:44 AM EDT Marjorie Myers MD LAB POINT OF CARE TE ST DOCKED DEVICE UNSOLICITED RESULTS Final Result Performing Organization Address [facility] Co de Phone Number [facility] [address] [place] [address] * Lavender Top (04/28/2025 8:13 AM EDT) [facility] Extra Hold for add-ons 04/28/2025 11:01 AM EDT [facility] Comment:Auto resulted. Blood Venous blood specimen / Unknown 04/28/2025 8:13 AM EDT 04/28/2025 8:19 AM EDT us Marjorie Myers MD LAB BLOOD ORDERABLES Final Resul t Performing Organization Address City/[facility]/ZIP Co de Phone Number [facility] [address] [place] [address] * Light Green Top (04/28/2025 8:13 AM EDT) Extra Hold for add-ons 04/28/2025 11:01 AM EDT [facility] Comment:Auto resulted. Blood Venous blood specimen / Unknown 04/28/2025 8:13 AM EDT 04/28/2025 8:19 AM EDT us Marjorie Myers MD LAB BLOOD ORDERABLES Final Resul t Performing Organization Address City/[facility]/ZIP Co de Phone Number [facility] [address] [place] [address] * APTT (04/28/2025 8:13 AM EDT) Pathologist [facility] aPTT 32 25 - 35 sec 04/28/2025 8:33 AM EDT [facility] Blood Venous blood specimen / Unknown Venipuncture / Unknown 04/28/2025 8:13 AM EDT 04/28/2025 8:18 AM EDT us Sy De La Fuente IN SHOP SERVICE TECHNICIAN, DNP LAB BLOOD ORDERABLES Fin al Result Performing Organization Address City/[facility] Co de Phone Number [facility] [address] [place] [address] * (ABNORMAL) PT/INR (04/28/2025 8:13 AM EDT) Prothrombin Time 17.5(H) 12.0 - 14.3 sec 04/28/2025 8:33 AM EDT [facility] INR 1.4(H) 0.9 - 1.1 04/28/2025 8:33 AM EDT [facility] Blood Venous blood specimen / Unknown Venipuncture / Unknown 04/28/2025 8:13 AM EDT 04/28/2025 8:18 AM EDT Narrative [facility] - 04/28/2025 8:33 AM EDT OPTIMAL INR RANGES FOR PATIENT ON ORAL ANTICOAGULANT THERAPY Prevention of venous thromboembolism INR 2.0 to 3.0 In patients with heart disease: Atrial fibrillation INR 2.0 to 3.0 Valvular heart disease INR 2.0 to 3.0 Tissue heart valves INR 2.0 to 3.0 Mechanical prosthetic valves INR 2.5 to 3.5 Prevention of recurrent MN INR 2.5 to 3.5 Sy De La Fuente APRN, DNP LAB BLOOD ORDERABLES Fin al Result Performing Organization Address [facility]/ZIP Co de Phone Number [facility] [address] [place] [address] * ECG Adult (04/28/2025 7:20 AM EDT) EKG DIAGNOSIS CLASS Abnormal MUSE ECG Ventricular Rate 90 BPM MUSE ECG Atrial Rate 90 BPM MUSE ECG [place] Interval 206 ms MUSE ECG QRSD Interval 146 ms MUSE ECG QT Interval 450 ms MUSE ECG QTC Interval 550 ms MUSE ECG P [place] 69 degrees MUSE ECG R [place] -32 degrees MUSE ECG T Wave [place] 35 degrees MUSE ECG Diagnosis Baseline Artifact [...] ORDERABLES Final Re sult Performing Organization Address [facility] Co de Phone Number MUSE ECG * (ABNORMAL) POCT glucose meter (04/28/2025 7:17 AM EDT) POCT Glucose 199(H) 74 - 99 mg/dL 04/28/2025 7:21 AM EDT [facility] Comment:Accuracy of a glucos e result [...] 04/28/2025 7:21 AM EDT [facility] Brick Handler ID Ailyn Finch 7:21 AM EDT [facility] LAB Device ID [id number] 04/28/2025 7:21 AM EDT [facility] LAB Specimen Type POC Capillary 04/28/2025 7:21 AM EDT [facility] Blood Capillary blood specimen / Unknown 04/28/2025 7:17 AM EDT 04/28/2025 7:21 AM EDT us Greg Lee MD LAB POINT OF CARE TE ST DOCKED DEVICE UNSOLICITED RESULTS Final Result [facility] [address] [place], [place] [id number] * CT Foot Right w IV Contrast [...] BANK TEST ORDERABLES Final Result BLOOD BANK [address] [place] [address] * Blood Culture (Aerobic/Anaerobet Set) (04/27/2025 10:16 PM EDT) Culture No growth at day 5 05/03/2025 12:01 AM EDT [facility] Blood Venous blood specimen / Unknown Venipuncture / Unknown 04/27/2025 10:16 PM EDT 04/27/2025 10:53 PM EDT us Jessa Law MD LAB MICROBIOLOGY - GENERAL PSYCHIATRIC Final Result [facility] [address] [place] [address] * Blood Culture (Aerobic/Anaerobet Set) (04/27/2025 10:16 PM EDT) Culture No growth at day 5 05/03/2025 12:01 AM EDT [facility] Blood Venous blood specimen / Unknown Venipuncture / Unknown 04/27/2025 10:16 PM EDT 04/27/2025 10:53 PM EDT us Jessa Law MD LAB MICROBIOLOGY - GENERAL SANYA DOMINGUEZ Final Result [facility] [address] [place] [address] * (ABNORMAL) Blood gas, venous (04/27/2025 10:16 PM EDT) pH, Venous 7.47(H) 7.32 - 7.43 LAB HEMATOLOGY METHOD 04/27/2025 10:21 PM EDT [facility] pCO2, Venous 50 40 - 55 mmHg LAB HEMATOLOGY METHOD 04/27/2025 10:21 PM EDT [facility] pO2, Venous 30 25 - 40 mmHg LAB HEMATOLOGY METHOD 04/27/2025 10:21 PM EDT [facility] SO2, Measured, Venous 52(L) 65 - 80 % LAB HEMATOLOGY METHOD 04/27/2025 10:21 PM EDT [facility] Base Excess, Venous 11.6(H) -2.0 - 3.0 mmol/L LAB HEMATOLOGY METHOD 04/27/2025 10:21 PM EDT [facility] Bicarbonate, Calculated, Venous 37(H) 22 - 26 mmol/L LAB HEMATOLOGY METHOD 04/27/2025 10:21 PM EDT [facility] Hematocrit, Whole Blood 30.1(L) 40.0 - 51.0 % LAB HEMATOLOGY METHOD 04/27/2025 10:21 PM EDT [facility] Sodium, Whole Blood 136 136 - 145 mmol/L LAB HEMATOLOGY METHOD 04/27/2025 10:21 PM EDT [facility] Potassium, Whole Blood 2.8(L) 3.6 - 4.9 mmol/L LAB HEMATOLOGY METHOD 04/27/2025 10:21 PM EDT [facility] Chloride, Whole Blood 88(L) 97 - 107 mmol/L LAB HEMATOLOGY METHOD 04/27/2025 10:21 PM EDT [facility] Glucose, Whole Blood 131(H) 74 - 99 mg/dL LAB HEMATOLOGY METHOD 04/27/2025 10:21 PM EDT [facility] Lactate, Venous, Whole Blood 2.0 0.5 - 2.2 mmol/L LAB HEMATOLOGY METHOD 04/27/2025 10:21 PM EDT [facility] Ionized Calcium, Whole Blood 4.2(L) 4.6 - 5.1 mg/dL LAB HEMATOLOGY METHOD 04/27/2025 10:21 PM EDT [facility] Blood Venous blood specimen / Unknown Venipuncture / Unknown 04/27/2025 10:16 PM EDT 04/27/2025 10:20 PM EDT us Jessa Law MD LAB BLOOD ORDERABLES Final Resu lt Performing Organization Address City/[facility]/ZIP Co de Phone Number [facility] [address] [place] [address] * Creatine Kinase, Total, Plasma (04/27/2025 9:37 PM EDT) Creatine Kinase, Plasma 71 49 - 320 U/L 04/28/2025 8:36 AM EDT [facility] Blood Venous blood specimen / Unknown Venipuncture / Unknown 04/27/2025 9:37 PM EDT 04/27/2025 9:40 PM EDT us Sy De La Fuente IN SHOP SERVICE TECHNICIAN, DNP LAB BLOOD ORDERABLES Fin al Result Performing Organization Address City/[facility]/ZIP Co de Phone Number [facility] [address] [place] [address] * (ABNORMAL) Procalcitonin (04/27/2025 9:37 PM EDT) Procalcitonin, Plasma 0.11(H) <0.09 ng/mL 04/28/2025 8:36 AM EDT [facility] Blood Venous blood specimen / Unknown Venipuncture / Unknown 04/27/2025 9:37 PM EDT 04/27/2025 9:40 PM EDT Narrative [facility] - 04/28/2025 8:36 AM [...] predict 28 day mortality risk. Please consult [email or web address] for more information. Test performed at [facility] Laboratory. Sy De La Fuente APRN, DNP LAB BLOOD ORDERABLES Fin al Result Performing Organization Address City/[facility]/[place] [address] * (ABNORMAL) Sed rate, automated (04/27/2025 9:37 PM EDT) Sedimentation Rate >111(H) <15 mm/hr 2024 11:10 PM EDT [facility] Blood Venous blood specimen / Unknown Venipuncture / Unknown 04/27/2025 9:37 PM EDT 04/27/2025 9:40 PM EDT Jessa Law MD LAB BLOOD ORDERABLES Final Resu lt Performing Organization Address [facility] Co de Phone Number [facility] [address] [place] [address] * (ABNORMAL) Magnesium (04/27/2025 9:37 PM EDT) Magnesium, Plasma 1.2(L) 1.9 - 2.4 mg/dL 04/27/2025 10:11 PM EDT [facility] Blood Venous blood specimen / Unknown Venipuncture / Unknown 04/27/2025 9:37 PM EDT 04/27/2025 9:40 PM EDT Jessa Law MD LAB BLOOD ORDERABLES Final Resu lt Performing Organization Address City/[facility]/ZIP Co de Phone Number [facility] [address] [place] [address] * Beta-Hydroxybutyric Acid (04/27/2025 9:37 PM EDT) Pathologist [facility] Beta-Hydroxybut yric Acid, Plasma 0.23 <=0.27 mmol/L 04/27/2025 10:56 PM EDT [facility] Blood Venous blood specimen / Unknown Venipuncture / Unknown 04/27/2025 9:37 PM EDT 04/27/2025 9:40 PM EDT us Jessa Law MD LAB BLOOD ORDERABLES Final Resu lt Performing Organization Address [facility] Co de Phone Number [facility] [address] [place] [address] * ED HIV 1/2 Antibody/Antigen Screen w/Reflex to HIV 1/2 Differentiation (04/27/2025 9:37 PM EDT) [facility] HIV 1 & 2 Antibody/Antigen Screen Non Reactive Non Reactive 04/27/2025 10:41 PM EDT [facility] Comment:Screening for HIV 1 & 2 antibodies, and P24 antigen is NONREACTIVE. No confirmatory testing is required. Blood Venous blood specimen / Unknown Venipuncture / Unknown 04/27/2025 9:37 PM EDT 04/27/2025 10:00 PM EDT us Madhu Ritchie MD LAB BLOOD ORDERABLES Final Res ult Performing Organization Address City/[facility]/ZIP Co de Phone Number [facility] [address] [place] [address] * Hepatitis C Antibody - ED (04/27/2025 9:37 PM EDT) [facility] Hepatitis C Antibody Negative Negative 04/27/2025 10:41 PM EDT [facility] Blood Venous blood specimen / Unknown Venipuncture / Unknown 04/27/2025 9:37 PM EDT 04/27/2025 10:00 PM EDT us Madhu Ritchie MD LAB BLOOD ORDERABLES Final Res ult Performing Organization Address City/[facility]/ZIP Co de Phone Number [facility] [address] [place] [address] * (ABNORMAL) C-reactive protein (04/27/2025 9:37 PM EDT) CRP, Plasma 82.6(H) <=8.0 mg/L 04/27/2025 10:03 PM EDT [facility] Blood Venous blood specimen / Unknown Venipuncture / Unknown 04/27/2025 9:37 PM EDT 04/27/2025 9:40 PM EDT Narrative [facility] - 04/27/2025 10:03 PM EDT This CRP test is appropriate for assessment of infection, systemic inflammation and/or tissue injury. To assess cardiovascular disease risk order high sensitivity CRP (CRPH). us Madhu Ritchie MD LAB BLOOD ORDERABLES Final Res ult Performing Organization Address [facility]/ZIP Co de Phone Number [facility] [address] [place] [address] * (ABNORMAL) CBC w/diff (04/27/2025 9:37 PM EDT) WBC Count 12.00(H) 3.70 - 10.30 10*3/uL LAB HEMATOLOGY METHOD 04/27/2025 9:43 PM EDT [facility] RBC Count 4.48(L) 4.60 - 6.10 10*6/uL LAB HEMATOLOGY METHOD 04/27/2025 9:43 PM EDT [facility] HGB 10.4(L) 13.7 - 17.5 g/dL LAB HEMATOLOGY METHOD 04/27/2025 9:43 PM EDT [facility] HCT 33.3(L) 40.0 - 51.0 % LAB HEMATOLOGY METHOD 04/27/2025 9:43 PM EDT [facility] Platelet Count 282 155 - 369 10*3/uL LAB HEMATOLOGY METHOD 04/27/2025 9:43 PM EDT [facility] MCV 74(L) 79 - 98 fL LAB HEMATOLOGY METHOD 04/27/2025 9:43 PM EDT [facility] MCH 23.2(L) 26.0 - 32.0 pg LAB HEMATOLOGY METHOD 04/27/2025 9:43 PM EDT [facility] MCHC 31.2 30.7 - 35.5 g/dL LAB HEMATOLOGY METHOD 04/27/2025 9:43 PM EDT [facility] RDW 19.4(H) 11.5 - 14.5 % LAB HEMATOLOGY METHOD 04/27/2025 9:43 PM EDT [facility] MPV 8.3(L) 8.8 - 12.5 fL LAB HEMATOLOGY METHOD 04/27/2025 9:43 PM EDT [facility] nRBC 0.0 <=0.0 per 100 WBCs LAB HEMATOLOGY METHOD 04/27/2025 9:43 PM EDT [facility] Differential Type Automated LAB HEMATOLOGY METHOD 04/27/2025 9:43 PM EDT [facility] Neutrophils % 82 % LAB HEMATOLOGY METHOD 04/27/2025 9:43 PM EDT [facility] Lymphocytes % 9 % LAB HEMATOLOGY METHOD 04/27/2025 9:43 PM EDT [facility] Monocytes % 7 % LAB HEMATOLOGY METHOD 04/27/2025 9:43 PM EDT [facility] Eosinophils % 2 % LAB HEMATOLOGY METHOD 04/27/2025 9:43 PM EDT [facility] Basophils % 0 % LAB HEMATOLOGY METHOD 04/27/2025 9:43 PM EDT [facility] Immature Granulocytes % 0 % LAB HEMATOLOGY METHOD 04/27/2025 9:43 PM EDT [facility] Neutrophils Absolute 9.73(H) 1.60 - 6.10 10*3/uL LAB HEMATOLOGY METHOD 04/27/2025 9:43 PM EDT [facility] Lymphocytes Absolute 1.11(L) 1.20 - 3.90 10*3/uL LAB HEMATOLOGY METHOD 04/27/2025 9:43 PM EDT [facility] Monocytes Absolute 0.80 0.30 - 0.90 10*3/uL LAB HEMATOLOGY METHOD 04/27/2025 9:43 PM EDT [facility] Eosinophils Absolute 0.29 0.00 - 0.50 10*3/uL LAB HEMATOLOGY METHOD 04/27/2025 9:43 PM EDT [facility] Basophils Absolute 0.03 0.00 - 0.10 10*3/uL LAB HEMATOLOGY METHOD 04/27/2025 9:43 PM EDT [facility] Immature Granulocytes Absolute 0.04 0.00 - 0.06 10*3/uL LAB HEMATOLOGY METHOD 04/27/2025 9:43 PM EDT [facility] Blood Venous blood specimen / Unknown Venipuncture / Unknown 04/27/2025 9:37 PM EDT 04/27/2025 9:40 PM EDT Narrative [facility] - 04/27/2025 9:43 PM EDT Therapeutic decision making should be based on absolute values, rather than percentages. us Madhu Ritchie MD LAB BLOOD ORDERABLES Final Res ult [facility] [address] [place] [address] * (ABNORMAL) BMP (04/27/2025 9:37 PM EDT) Glucose, Plasma 135(H) 74 - 99 mg/dL 04/27/2025 10:03 PM EDT [facility] BUN, Plasma 8 7 - 21 mg/dL 04/27/2025 10:03 PM EDT [facility] Creatinine, Plasma 0.84 0.70 - 1.20 mg/dL 04/27/2025 10:03 PM EDT [facility] BUN/Creatinine Ratio 10 04/27/2025 10:03 PM EDT [facility] Sodium, Plasma 135(L) 136 - 145 mmol/L 04/27/2025 10:03 PM EDT [facility] Potassium, Plasma 3.3(L) 3.6 - 4.9 mmol/L 04/27/2025 10:03 PM EDT [facility] Chloride, Plasma 90(L) 97 - 107 mmol/L 04/27/2025 10:03 PM EDT [facility] CO2, Plasma 29 22 - 29 mmol/L 04/27/2025 10:03 PM EDT [facility] Anion Gap 16 6 - 16 mmol/L 04/27/2025 10:03 PM EDT [facility] Total Calcium, Plasma 9.0 8.9 - 10.2 mg/dL 04/27/2025 10:03 PM EDT [facility] eGFRcr 108.2 mL/min/1.7 3m*2 04/27/2025 10:03 PM EDT [facility] Comment:Reported eGFRcr in m L/min/1.73m2 is based the CKD-EPI 2020 equation that does not use a race coefficient. Blood Venous blood specimen / Unknown Venipuncture / Unknown 04/27/2025 9:37 PM EDT 04/27/2025 9:40 PM EDT us Madhu Ritchie MD LAB BLOOD ORDERABLES Final Res ult [facility] [address] [place] [address] documented in this encounter Visit Diagnoses Diagnosis Other chronic osteomyelitis of right foot ([facility]) Diabetic foot ulcer with osteomyelitis Type II [...] sleeve procedure Type 2 diabetes Morbid obesity ([facility]) Morbid obesity Diabetic foot ulcer with osteomyelitis Type II or unspecified type diabetes mellitus with other specified manifestations, not stated as uncontrolled Pyogenic inflammation of bone Unspecified osteomyelitis, site unspecified Other chronic osteomyelitis of right foot ([facility]) documented in this encounter Admitting Diagnoses Diagnosis [...] Given 05/17/2025 9:00 AM EST 10 mg bumetanide (Bumex) tablet 4 mg 4 [...] Given 05/16/2025 8:57 AM EST 3 mg dextrose 10 % (D10W) bolus 125 mL [...] Michaelle 05/11/25 at 0900, Until Discontinued, Routine Given 05/17/2025 9:01 AM EST 324 mg Given 05/15/2025 9:43 AM EST 324 mg Given 05/13/2025 8:41 AM EDT 324 mg finasteride (Proscar) tablet 5 mg 5 mg, Oral, Daily, First dose on [facility] 05/06/25 at 1245, Until Discontinued, Routine Given 05/18/2025 9:06 AM EST 5 mg Given 05/17/2025 9:01 AM EST 5 mg Given 05/16/2025 8:56 AM EST 5 mg fluticasone (Flonase) nasal spray 2 spray 2 spray, Each Nostril, Daily, First dose on [facility] 05/06/25 at 1245, Until Discontinued, Routine Given [...] Given 05/04/2025 4:25 PM EDT 600 mg insulin lispro (Admelog) 100 units/mL injection [...] EDT 2 Units Le ft Lower Abdomen insulin regular [...] units/mL, First dose (after last reorder) on [place] 05/14/25 at 1800 Given 05/17/2025 5:32 PM [...] EST 90 Units Left Upper Arm (Back) ipratropium-albuterol (Duo-Neb) 0.5-2.5 mg/3 mL nebulizer solution [...] Given 05/16/2025 8:54 AM EST 800 mg miconazole (Micotin) 2 % powder Topical, 2 times daily, First dose on Thu05/02/25 at 1345, Until Discontinued, Routine Given 05/17/2025 8:04 PM EST Given 05/17/2025 9:05 AM EST Given 05/16/2025 8:01 PM EST oxyCODONE (Roxicodone) immediate release tablet 5 mg [...] Given 05/16/2025 8:55 AM EST 40 mg polyethylene glycol (Miralax) packet 17 g 17 g, Oral, Daily, First dose on Thu04/28/25 at 0900, Until Discontinued, Routine Given 05/16/2025 8:56 AM EST 17 g Given 05/15/2025 9:40 AM EST 17 g Given 05/11/2025 9:08 AM EDT 17 g rivaroxaban (Xarelto) tablet 20 mg 20 mg, Oral, Daily with dinner, First dose on Thu05/02/25 at 1800, Until Discontinued, Routine Given 05/17/2025 5:29 PM EST 20 mg Given 05/16/2025 5:55 PM EST 20 mg Given 05/15/2025 5:00 PM EST 20 mg sodium chloride ([place]) 0.65 % nasal spray 1 spray 1 [...] Michaelle 05/18/25 at 1348, Routine, line care spironolactone (Aldactone) tablet 100 mg 100 mg, [...] Given 05/16/2025 8:55 AM EST 0.4 mg thrombin (recombinant) (Recothrom) topical solution As needed, Starting on Thu05/01/25 at 0825, Until Thu05/01/25 at 0911, Routine Given 05/01/2025 8:25 AM EDT 5,000 Units venlafaxine XR (Effexor-XR) 24 hr capsule 150 [...] RN)1999 (Given - Provider: Ivan Slaughter RN) 900 (Given - Provider: Deepthi Herman RN)170 (Given [...] on 05/06/25 at 1245, Until Discontinued, Routine 09 (Given - Provider: Deepthi Herman RN) 0905 [...] 1732 (Given - Provider: Deepthi Herman RN) 173 [...] 0904 (Given - Provider: Deepthi Herman RN) 09 (Given - Provider: Deepthi Herman RN) 908 (Given - Provider: Kylee Gonzalez, LOLA - Comment: [place]) insulin regular (HumuLIN R U-500) 500 UNIT/ML [...] 09 (Given - Provider: Kylee Gonzalez, LOLA) miconazole (Micotin) 2 % powder Topical, 2 times daily, First dose on Thu05/02/25 at 1345, Until Discontinued, Routine 09 (Given - Provider: Deepthi Herman RN)2000 (Given [...] LOLA) 0902 (Given - Provider: Deepthi Herman, LLOA)1424 (Given - Provider: Deepthi Herman, LOLA)2228 (Given - Provider: Ivan Slaughter, LOLA) 0907 (Given - Provider: Kylee Gonzalez RN) sodium chloride ([place]) 0.65 % nasal spray 1 spray 1 [...] documented as of this encounter Care Teams Observer [employer] Relationship Specialty Start Date End Date Malcolm Hayward APRN [address] [place] [id number] PCP - General 09/21/23 documented as of this encounter
--- OUTSIDE RECORDS SUMMARY | 2025-06-22 13:40 | XMS_ITS | Encounter Summary ---
Author Organization [facility] Address [address] [id number] Care Team Providers Care Senior Java Software Engineer Name Role Phone Mainor Malcolm Rodrick DIANA Primary Care Provider [phone] Reason for Visit * Reason Comments Post-op * Consultation (Routine) - Closed Specialty Diagnoses / Procedures Referred By Contact Referred To Contact Vascular Surgery / [facility] Diagnoses Diabetic foot ulcer with osteomyelitis Diane Guzman MD [address] [place] [address] Phone: tel:[phone] fax:[phone] [facility] [address] [place] [address] Phone: tel: fax: Referral ID Status Reason Start Date Expiration Date V isits Requested Visits Authorized [id number] Closed Specialty Services Required 05/03/2025 11/02/2026 1 1 Encounter Details Date Type Department Care Team (Latest Contact Info) Description 06/22/2025 1:40 PM EST Office Visit [facility] [address] [place] [address] Mary Vicente MD [address] [facility] [address] [place] [address] QUINN (obstructive sleep apnea) (Primary [...] in a mcfp (including now)? No 04/28/2025 [facility] Utilities Answer Date Recorded In the past 12 months has th e [employer], gas, oil, or water [employer] threatened to shut off services in your [...] 1:32 PM EST documented in this encounter Miscellaneous Notes * [...] EST Dear Malcolm Hayward APRN, HPI Gonzalo BlackmanKendy Russell is a 49-year-old male with a past [...] are demonstrated at the levels of the HAIR PREPARER and DPA. Segmental pressuresare within normal limits with a HAIR PREPARER GABBI of 1.1 (172 mmHg) and a DPA GABBI of 1.0 (149 mmHg). Digit pressures are of 122 mmHg. Left: Multiphasic waveforms are demonstrated at the levels of the HAIR PREPARER and DPA. Segmental pressures are within normal limits with a HAIR PREPARER GABBI of 1.1 (164 mmHg) and a [...] 05/19/2024 Atrial fibrillation with rapid ventricular response ([facility]/HCC) 05/19/2024 Primary osteoarthritis of knees, bilateral 05/19/2024 Recurrent major depression resistant to treatment ([facility]/HCC) 05/19/2024 S/P gastric sleeve procedure 05/19/2024 Diabetic foot ulcer 05/19/2024 Smoker unmotivated to quit 05/19/2024 Tachycardia 05/19/2024 Neuropathy 09/30/2021 Other hyperlipidemia 12/21/2020 Type 2 diabetes 12/21/2020 Lower back pain 04/22/2019 Hypertension 02/18/2019 Edema 02/18/2019 Uncontrolled type 2 diabetes mellitus with hyperglycemia, with long-term current use of insulin 06/14/2018 Microalbuminuria 04/09/2018 Morbid obesity ([facility]/HCC) 12/24/2016 Allergic rhinitis 12/24/2016 QUINN (obstructive [...] Description 08/03/2025 2:00 PM EST Office Visit [facility] [address] [facility] 5th Floor [address] [place] [address] Mary Vicente MD [address] [place] [facility] [address] [place] [address] (work) documented as of this encounter Procedures Procedure Name Priority Date/Time Associated Diagnosis Comments [facility] Routine 06/22/2025 2:05 PM EST documented in this encounter Results * DME Order (06/22/2025 2:05 PM EST) [facility] SUPPLIER NAME [facility] (Wound Care) [facility] DME [facility] SUPPLIER PHONE [facility] DME [facility] DELIVERY STATUS Delivery Successful [facility] [place] DME [facility] DELIVERY NOTE [facility] DME [facility] REQUESTED DELIVERY DATE 06/22/2025 [facility] DME [facility] ACTUAL DELIVERY DATE 06/22/2025 [facility] DME [facility] ITEM DESCRIPTION Adaptic Petrolatum Emulsion Non-Adherent Dressing, 3 x 8 in., Box (24) [facility] Comment: Qty: 1 Substitution Status: In the event of product backorder, discontinuation, or patient preference, substitutions are permitted for wound care products on this order. [facility] ITEM DESCRIPTION MediChoice Sterile Abdominal Pads, 5 x 9 in., Box (36) [facility] Comment: Qty: 1 Substitution Status: In the event of product backorder, discontinuation, or patient preference, substitutions are permitted for wound care products on this order. [facility] ITEM DESCRIPTION [employer] Fluff Gauze Bandage Roll, Sterile, 6-ply, 4.5 in. x 4.1 yd., Each (1) [facility] DME Comment: Qty: 30 Substitution Status: In the event of product backorder, discontinuation, or patient preference, substitutions are permitted for wound care products on this order. [facility] ITEM DESCRIPTION Jose-Band LF Latex Free Elastic Bandage with Hook and Loop Closure, Wound Care Treatment, NS, 3 in. x 5 yd., Box (10) [facility] DME Comment: Qty: 2 Substitution Status: In the event of product backorder, discontinuation, or patient preference, substitutions are permitted for wound care products on this order. 06/22/2025 2:05 PM EST us Mary Vicente MD DME ORDERABLES Final Result [facility] DME documented in this encounter Visit Diagnoses Diagnosis [...] fibrillation with rapid ventricular response (CMS/HCC) Tachycardia Unspecified tachycardia Morbid obesity ([facility]) Morbid obesity Uncontrolled type 2 diabetes mellitus with hyperglycemia, with long-term current use of insulin Type 2 diabetes mellitus with diabetic peripheral angiopathy without gangrene, with long-term current use of insulin Tobacco abuse counseling S/P gastric sleeve procedure Recurrent major depression resistant to treatment ([facility]) Smoker unmotivated to quit documented in this encounter Additional Health Concerns Assessment Noted Time PHQ-9 Depression Total Score: 0 09/14/19 25 2:29 PM EST A fall risk assessment has been complete d for the patient 09/13/2024 2:29 PM EST A Body Mass Index follow-up plan has been documented for the patient 06/22/2025 2:05 PM EST documented as of this encounter Care Teams Senior Java Software Engineer Relationship Specialty Start Date End Date Malcolm Hayward APRN [address] [place] [address] PCP - General 09/21/23 documented as of this encounter
[2025-06-29 13:40] LABS: Microscopic, Urine URINE MICROSCOPIC (MICROSCOPIC)
--- OUTSIDE RECORDS SUMMARY | 2025-06-29 13:44 | XMS_ITS | Referral Summary ---
Author Organization [employer] ([place], [place], [place], [place], [place]) Address [address] [place] [address] Care Team Providers Care Desktop Manager Name Role Phone Malcolm Hayward APRN Primary Care Provider [phone] Allergies No known active allergies Medications atorvastatin [...] A B BLUE CROSS/BLUE SHIELD Care Teams Desktop Manager Relationship Specialty Start Date End Date Malcolm Hayward, ADALGISA [address] [place] [address] PCP - General Nurse Practitioner 12/20/24
--- OUTSIDE RECORDS SUMMARY | 2025-06-29 13:45 | XMS_ITS | Clinical Summary ---
Author Organization [employer] ([place], [place], [place], [place], [place]) Address [address] [place] [address] Care Team Providers Care Secretary Receptionist Name Role Phone Malcolm Hayward APRN Primary Care Provider [phone] Allergies No known active allergies Medications atorvastatin [...] 04/26/2020, 12/24/2016 Insurance MEDICARE PART A B /[facility] Care Teams Secretary Receptionist Relationship Specialty Start Date End Date Malcolm Hayward APRN [address] [id number] PCP - General Nurse Practitioner 12/20/24
--- OUTSIDE RECORDS SUMMARY | 2025-06-29 13:45 | XMS_ITS | Encounter Summary ---
Author Organization Healthcare Address [address] [id number] Care Team Providers Care Car Filler Name Role Phone Malcolm Hayward ADALGISA Primary Care Provider [phone] Encounter Details Date Type Department Care Team (Late st Contact Info) Description 06/12/2025 [facility]phone [facility] [address] [facility] [address] [place] [address] Mary Vicente MD [address] [facility] [address] [place] [address] Social History Tobacco Use Types [...] in a usp (including now)? No 04/28/2025 [facility] [...] Clinical Concern/Question Reason for Call: [facility] would like to speak to a nurse about patient's weight bearing status. Thank you! Has questions about a special shoe patient could use. Best contact number: Other: [phone] Optimal time of day to reach caller: [...] Description 08/03/2025 2:00 PM EST Office [facility] [address] [facility] [address] [place] [address] Mary Vicente MD [address] [facility] [address] [place] [address] documented as of this encounter [...] as of this encounter Care Teams Car Filler Relationship Specialty Start Date End Date Malcolm Hayward APRN [address] [place], [place] [id number] PCP - General 09/21/23 documented as of this encounter
--- OUTSIDE RECORDS SUMMARY | 2025-06-29 13:45 | XMS_ITS | Encounter Summary ---
Author Organization [facility] Address [address] [place] [address] Care Team Providers Care Processing Assistant Name Role Phone Malcolm Hayward ADALGISA Primary Care Provider [phone] Encounter Details Date Type Department Care Team (Late st Contact Info) Description 06/13/2025 Telephone Vascular Surgery [address] [place] [address] Rohith Ramires, [employer] PRESS OPERATOR None Social History Tobacco Use Types [...] a group home (including now)? No 04/28/2025 [facility] Utilities Answer Date Recorded In the past 12 months has th e transOMIC, gas, oil, or water company threatened to [...] boot at home. Patient has seen a neuro psych sales specialist after discharge for wound culturing and it came back positive, patient had asked for IV ABX, but SGR team cannot write for ABX from someone elses cultures. Recruiting Manager should manage that, but does not want to because of recent surgery. Clinic staff has recommended multiple times via epic chat in mychart and phone calls to go to the ED if neuro psych sales specialist unable/unwilling totreat. Has yet to go, and [...] Description 08/03/2025 2:00 PM EST Office Visit [facility] [address] [facility] [address] [place] [address] Mary Vicente MD [address] [facility] [address] [place] [address] documented as of this encounter [...] documented as of this encounter Care Teams Processing Assistant Relationship Specialty Start Date End Date Malcolm aHyward APRN [address] [place] [id number] PCP - General 09/21/23 documented as of this encounter
--- OUTSIDE RECORDS SUMMARY | 2025-06-29 13:46 | XMS_ITS | Encounter Summary ---
Author Organization Healthcare Address [address] [id number] Care Team Providers Care Spring Former Hand Name Role Phone Malcolm Hayward ROBOTIC MACHINE TENDER PRODUCTION Primary Care Provider [phone] Reason for Visit * Reason Comments Med Refill Encounter Details Date Type Department Care Team (Late st Contact Info) Description 07/07/2024 Refill [facility] [address] [place] [address] Mayra Torres PA [address] [address] Type 2 diabetes mellitus (CMS/HCC) [...] Description 08/03/2025 2:00 PM EST Office Visit [facility] [address] [facility] 5th Floor [address] [place] [address] Mary Vicente MD [address] [facility] [address] [place] [address] documented as of this encounter [...] documented as of this encounter Care Teams Spring Former Hand Relationship Specialty Start Date End Date Malcolm Hayward APRN [address] [place] [address] PCP - General 09/21/23 documented as of this encounter
--- OUTSIDE RECORDS SUMMARY | 2025-06-29 13:46 | XMS_ITS | Encounter Summary ---
Author Organization [facility] Address [address] [id number] Care Team Providers Care Awning Craftsman Name Role Phone Malcolm Hayward APRN Primary Care Provider +07-20 [phone] Encounter Details Date Type Department Care Team [...] in a fci (including now)? No 04/28/2025 [facility] Utilities Answer Date Recorded In the past [...] Description 08/03/2025 2:00 PM EST Office Visit [facility] [address] [facility] 5th Floor Wing [address], [address] [place] [address] Mary Vicente MD [address] [facility] [address] [place] [address] documented as of this encounter Visit Diagnoses [...] documented as of this encounter Care Teams Awning Craftsman Relationship Specialty Start Date End Date Malcolm Hayward APRN [address] [place] [address] [place] [address] PCP - General 09/21/23 documented as of this encounter
--- OUTSIDE RECORDS SUMMARY | 2025-06-29 13:46 | XMS_ITS | Encounter Summary ---
Author Organization [facility] Address [address] [id number] Care Team Providers Care Port Steward Name Role Phone Malcolm Hayward BORDERER Primary Care Provider +07-20 [phone] Reason for Visit * Reason Comments Med Refill Encounter Details Date Type Department Care Team (Late st Contact Info) Description 12/31/2023 Refill [facility] [address] [place] [address] Earline Loaiza, BORDERER [address] [facility] [address] [place] [address] Type 2 diabetes mellitus (CMS/HCC) [...] [place] [facility] [address] 5th Floor Wing [address], [address] [place] [address] Mary Vicente MD [address] [facility] [address] [place] [address] documented as of this encounter [...] as of this encounter Care Teams Port Steward Relationship Specialty Start Date End Date Malcolm Hayward APRN [address] [place] [address] PCP - General 09/21/23 documented as of this encounter
--- OUTSIDE RECORDS SUMMARY | 2025-06-29 13:46 | XMS_ITS | Clinical Summary ---
Author Organization [facility] Address [address] [place] [address] Care Team Providers Care Sales Performance Manager Name Role Phone Provider, No Known [...] C SCREENING Completed 04/27/2025 Insurance Care Teams Sales Performance Manager Relationship Specialty Start Date End Date Provider, No Known [facility] [place] [address] PCP - General 02/11/21
--- OUTSIDE RECORDS SUMMARY | 2025-06-29 13:46 | XMS_ITS | Encounter Summary ---
Author Organization [facility] Address [address] [id number] Care Team Providers Care Learning Officer Name Role Phone Malcolm Hayward APRN Primary Care Provider [phone] [phone] Encounter Details Date Type Department Care Team [...] any time in the past 12 m [facility], were you homeless or living in a retirement (including now)? No 04/28/2025 [facility] Utilities Answer Date Recorded In [...] Description 08/03/2025 2:00 PM EST Office Visit [place] [facility] [address] [facility] 5th Floor Wing [address], [address] [place] [address] Mary Vicente MD [address] [facility] [address] [place] [address] documented as of this encounter Visit Diagnoses [...] documented as of this encounter Care Teams Learning Officer Relationship Specialty Start Date End Date Malcolm Hayward, ADALGISA [address] [place] [address] [place] [address] PCP - General 09/21/23 documented as of this encounter
--- OUTSIDE RECORDS SUMMARY | 2025-06-29 13:47 | XMS_ITS | Encounter Summary ---
Author Organization [facility] Address [address] [id number] Care Team Providers Care Sales Engineer Account Manager Name Role Phone Malcolm Hayward ADALGISA Primary Care Provider +07-20 [phone] Reason for Visit * Reason Onset Date Comments HCN Clinical Concern/Question 06/12/2025 Encounter Details Date Type Department Care Team (Late st Contact Info) Description 06/12/2025 Telephone [place] [facility] [address] [facility] 5th Floor Wing D, [address] [place] [address] Mary Vicente MD [address] [facility] [address] [place] [address] HCN Clinical Concern/Question Social History [...] in a prison (including now)? No 04/28/2025 [facility] [...] about it , labreport Best contact number: [phone] (mobile) Optimal time of day to reach [...] Description 08/03/2025 2:00 PM EST Office Visit [facility] [address] [facility] 5th Floor Wing [address], [address] [place] [address] Mary Vicente MD [address] [facility] [address] [place] [address] documented as of this [...] documented as of this encounter Care Teams Sales Engineer Account Manager Relationship Specialty Start Date End Date Malcolm Hayward APRN [address] [place] [address] PCP - General 09/21/23 documented as of this encounter
--- OUTSIDE RECORDS SUMMARY | 2025-06-29 13:49 | XMS_ITS | Encounter Summary ---
Author Organization [facility] Address [address] [id number] Care Team Providers Care Interventional Radiology Rn Name Role Phone Malcolm Hayward APRN Primary Care Provider [phone] [phone] Encounter Details Date Type Department Care Team [...] in the past [address] [facility], were you homeless or living in a long-term (including now)? No 04/28/2025 [facility] [...] [place] [facility] [address] [facility] 5th Floor Wing [address], [address] [place] [address] Mary Vicente MD [address] [facility] [address] [place] [address] documented as [...] documented as of this encounter Care Teams Interventional Radiology Rn Relationship Specialty Start Date End Date Malcolm Hayward APRN [address] [place] [address] PCP - General 09/21/23 documented as of this encounter
--- OUTSIDE RECORDS SUMMARY | 2025-06-29 13:49 | XMS_ITS | Encounter Summary ---
Author Organization [facility] Address [address] [place] [address] Care Team Providers Care Belt Operator Name Role Phone Malcolm Hayward ADALGISA Primary Care Provider [phone] [phone] Encounter Details Date Type Department Care Team (Late st Contact Info) Description 05/24/2025 Telephone Vascular Surgery [address] [place] [address] Rohith Ramires, CARD CLEANER None Social History Tobacco Use Types Packs/Day [...] in a halfway (including now)? No 04/28/2025 [facility] Utilities Answer Date Recorded [...] [place] [facility] [address] [facility] 5th Floor Wing [address], [address] [place] [address] Mary Vicente MD [address] [facility] [address] [place] [address] documented as of this encounter [...] documented as of this encounter Care Teams Belt Operator Relationship Specialty Start Date End Date Malcolm Hayward APRN [address] [place] [address] PCP - General 09/21/23 documented as of this encounter
--- OUTSIDE RECORDS SUMMARY | 2025-06-29 13:49 | XMS_ITS | Encounter Summary ---
Author Organization Healthcare Address [address] [id number] Care Team Providers Care Circuit Board Assembler Name Role Phone Malcolm Hayward ADALGISA Primary Care Provider [phone] [phone] Reason for Visit * Reason Onset Date Comments HCN Clinical Concern/Question 05/19/2025 HCN Status Update Call #1 05/19/2025 Encounter Details Date Type Department Care Team (Late st Contact Info) Description 05/19/2025 Telephone [place] [facility] [address] [facility] 5th Floor Wing D, [address] [place] [address] Sheila Marcano, BLAS [address] [facility] [address] [place] [address] HCN Clinical Concern/Question; HCN Status [...] any time in the past 12 m [facility], were you homeless or living in a residential (including now)? 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 Praveen denied any other needs or concerns. [...] the initial request. Best contact number: Other: [phone] Optimal time of day to reach caller: [...] will receive notification of the communication/outcome via [employer]. * Telephone Encounter - Diane Daniels - 05/19/2025 2:11 PM EST Clinical Concern/Question Reason for Call: Praveen from [facility] is calling to see if the patient could get a off loading boot so he could be moved to their facility or if he has to wait until his next carlos a with the clinic on 05/30/25. Please call praveen back with info. Thank you Best contact number: Other: [phone] Optimal time of day to reach caller: [...] Description 08/03/2025 2:00 PM EST Office Visit [place] [facility] [address] 5th Floor [address] [place] [address] Mary Vicente MD [address] [facility] [address] [place] [address] documented as of this encounter [...] documented as of this encounter Care Teams Circuit Board Assembler Relationship Specialty Start Date End Date Malcolm Hayward APRN [address] [place] [address] PCP - General 09/21/23 documented as of this encounter
--- OUTSIDE RECORDS SUMMARY | 2025-06-29 13:49 | XMS_ITS | Encounter Summary ---
Author Organization [facility] Address [address] [id number] Care Team Providers Care Marketing Technologist Name Role Phone Malcolm Hayward APRN Primary Care Provider +07-20 [phone] Encounter Details Date Type Department Care Team [...] in a halfway (including now)? No 04/28/2025 [facility] Utilities Answer Date Recorded In [...] Answer Date of Assessment Author Jim Fall risk;[facility] surveillance 05/01/2025 10:01 PM EDT Aime Gill [...] Question Answer Entry Date Author Precautions Fall risk;[facility] surveillance 05/01/2025 10:01 PM Aime Kelly RN documented in this encounter Plan of Treatment Upcoming Encounters Date Type Department Care Team (Late st Contact Info) Description 08/03/2025 2:00 PM EST Office Visit [place] [facility] [address] 5th Floor [address] [place] [address] Mary Vicente MD [address] [facility] [address] [place] [address] documented as of this encounter [...] documented as of this encounter Care Teams Marketing Technologist Relationship Specialty Start Date End Date Malcolm Hayward APRN [address] [place] [address] PCP - General 09/21/23 documented as of this encounter
--- OUTSIDE RECORDS SUMMARY | 2025-06-29 13:49 | XMS_ITS | Encounter Summary ---
Author Organization Healthcare Address [address] [id number] Care Team Providers Care Forest Practices Field Coordinator Name Role Phone Malcolm Hayward ADALGISA Primary Care Provider +07-20 [phone] Encounter Details Date Type Department Care Team ([facility] st Contact Info) Description 05/29/2025 Telephone [facility] [address] [place] [address] Pcp, No [address] [place] [address] Social History Tobacco Use Types Packs/Day Years [...] any time in the past 12 m [facility], were you homeless or living in a group home (including now)? No 04/28/2025 [facility] [...] Please call with updates Best contact number: [phone] (mobile) Optimal time of day to reach caller: ANYTIME Additional comments/information from caller: None Note: Please do not reply to this message. Follow-up communication and further actions as a result of this message need to be communicated with the patient directly, if the patient is not active onMyChart. If the patient is active on MyChart, they will receive notification of the communication/outcome via [employer]. documented in this encounter Plan of Treatment Upcoming Encounters Date Type Department Care Team (Late st Contact Info) Description 08/03/2025 2:00 PM EST Office Visit [facility] [address] 5th Floor [address] [place] [address] Mary Vicente MD [address] [facility] [address] [place] [address] documented as of this encounter [...] as of this encounter Care Teams Forest Practices Field Coordinator Relationship Specialty Start Date End Date Malcolm Hayward APRN [address] [place] [address] PCP - General 09/21/23 documented as of this encounter
--- OUTSIDE RECORDS SUMMARY | 2025-06-29 13:49 | XMS_ITS | Encounter Summary ---
Author Organization [facility] Address [address] [id number] Care Team Providers Care French Pastry Cook Name Role Phone Malcolm Hayward APRN Primary Care Provider [phone] [phone] Encounter Details Date Type Department Care Team [...] in a fdc (including now)? No 04/28/2025 [facility] Utilities Answer Date Recorded In the past [...] [place] [facility] [address] 5th Floor [address] [place] [address] Mary Vicente MD [address] [facility] [address] [place] [address] documented as of this encounter [...] documented as of this encounter Care Teams French Pastry Cook Relationship Specialty Start Date End Date Malcolm Hayward APRN [address] [place] [address] PCP - General 09/21/23 documented as of this encounter
--- OUTSIDE RECORDS SUMMARY | 2025-06-29 13:49 | XMS_ITS | Encounter Summary ---
Author Organization [facility] Address [address] [place] [address] Care Team Providers Care Ophthalmic Assistant Name Role Phone Malcolm Hayward ADALGISA Primary Care Provider +07-20 [phone] Encounter Details Date Type Department Care Team ([facility] st Contact Info) Description 05/01/2025 Orders Only External Location [address] [place] [address] Provider, External Social History Tobacco Use Types [...] any time in the past 12 m [facility], were you homeless or living in a skilled nursing (including now)? No 04/28/2025 [facility] Utilities Answer Date Recorded In [...] Environmental surveillance 05/05/2025 8:0 0 AM EDT Ntiza Mishra RN * Calculated C-SSRS Risk Score [...] Description 08/03/2025 2:00 PM EST Office Visit [place] [facility] [address] 5th Floor [address] [place] [address] Mary Vicente MD [address] [facility] [address] [place] [address] documented as of this encounter [...] documented as of this encounter Care Teams Ophthalmic Assistant Relationship Specialty Start Date End Date Malcolm Hayward APRN [address] [place] [address] PCP - General 09/21/23 documented as of this encounter
--- OUTSIDE RECORDS SUMMARY | 2025-06-29 13:50 | XMS_ITS | Clinical Summary ---
Author Organization [facility] Address [address] [place] [address] Care Team Providers Care Mobile Architect Name Role Phone Malcolm Hayward APRN Primary Care Provider [phone] Allergies Active Allergy Reactions Criticality Noted Date [...] 01/11/20 25 Active Insulin Pen Needle (Pen [place]) 31G X 5 MM [facility] USE TO INJECT INSULIN 3 TIMES PER [...] Active Continuous Glucose Sensor (Dexcom G7 Sensor) [facility] 12/11/20 25 Active HYDROcodone-acetam inophen ([place]) 10-325 MG tablet TAKE ONE TABLET BY [...] Description 06/22/2025 1:40 PM EST Office Visit [facility] [address] [place] [address] Mary Vicente MD QUINN (obstructive sleep apnea) [...] procedure; Recurrent major depression resistant to treatment ([facility]); Smoker unmotivated to quit 06/22/2025 Travel 06/16/2025 Travel 06/13/2025 Telephone Vascular Surgery [address] [place] [phone] Rohith Ramires, LOLA 06/12/2025 Telephone [facility] [address], [address] [address] Mary Vicente MD 06/12/2025 Telephone [facility] [address], [address] [address] Mary Vicente MD HCN Clinical Concern/Question 05/29/2025 Telephone [facility] [address] [place] [phone] Pcp, No 05/26/2025 Telephone Wound Care [address] [place] [phone] Sheila Marcano PA 05/24/2025 Telephone [facility] [address], [address] [phone] Sheila Marcano PA HCN - Patient Message (Call request ); HCN Status Update Call #2 05/24/2025 Telephone Vascular Surgery [address] [place] [phone] Rohith Ramires RN 05/24/2025 Travel 05/19/2025 Telephone [facility] [address], [address] [phone] Sheila Marcano PA HCN Clinical Concern/Question; HCN Status Update Call #1 05/18/2025 Travel 05/17/2025 Travel 05/01/2025 7:30 AM EDT - 05/01/2025 8:50 AM EDT Surgery [facility] [address] [place] [phone] Mary Vicente MD AMPUTATION,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 4th 05/01/2025 7:28 AM EDT Anesthesia Event [facility] [address] [place] [phone] Gilberto Rivera MD Ford, Richard F, MD 05/01/2025 Orders Only External Location [address] [place] [address] Provider, External 05/01/2025 Travel 04/28/2025 Travel 04/27/2025 9:29 PM EDT - 05/18/2025 11:48 AM EST Hospital Encounter [facility] Inpatient [address] [place] [address] Jessa Law MD Chapman, Steven B, Greg [...] Discharge Disposition: [facility] Facility 04/27/2025 Travel 04/19/2025 [facility] Endocrinology [address] [place] [phone] Divine Archer, CUSHION GUM APPLICATOR Type 2 diabetes mellitus from Last 3 [...] in a penitentiary (including now)? No 04/28/2025 [facility] Utilities Answer Date Recorded In the past 12 months has th e [place], gas, oil, or water company threatened to [...] [facility] [address] Wing [address] [place] [address] Mary Vicente MD [address] [facility] [address] [place] [address] Health Maintenance Due Date Last Done Comments [facility]-Medicare Annual Wellness (AWV) 1977 [facility]-Infant/Child/Adol SDOH Screenings 1977 Diabetes: Dental Exam 1987 [facility]-DTaP,Tdap,and Td Vaccines (1 - Tdap) 1996 [facility]-Hepatitis B Vaccines (1 of 3 - 19+ 3-dose series) 1996 CT Colonography 2022 Colonoscopy 2022 FIT-DNA 2022 FIT 2022 FOBT 2022 Sigmoidoscopy 2022 [facility]-Colorectal Cancer Screening 2022 [id number] Vaccine (3 - season) 2025 02/22/2021, 01/25/2021 [...] Procedure Name Priority Date/Time Associated Diagnosis Comments [facility] ORDER Routine 06/22/2025 2:05 PM EST [...] 2:05 PM EST) [facility] SUP[facility]IER NAME FinalCAD (Wound Care) [facility] PHONE [facility] DELIVERY STATUS Delivery Successful [facility] DELIVERY NOTE [facility] REQUESTED DELIVERY DATE 06/22/2025 [facility] ACTUAL DELIVERY DATE 06/22/2025 [facility] ITEM DESCRIPTION Adaptic Petrolatum Emulsion Non-Adherent Dressing, 3 x 8 in., Box (24) [facility] Comment: Qty: 1 Substitution Status: In the event of product backorder, discontinuation, or patient preference, substitutions are permitted for wound care products on this order. [facility] ITEM DESCRIPTION MediChoice Sterile Abdominal Pads, 5 x 9 in., Box (36) [facility] Comment: Qty: 1 Substitution Status: In the event of product backorder, discontinuation, or patient preference, substitutions are permitted for wound care products on this order. [facility] ITEM DESCRIPTION [employer] Fluff Gauze Bandage Roll, Sterile, 6-ply, 4.5 in. x 4.1 yd., Each (1) [facility] Comment: Qty: 30 Substitution Status: In the event of product backorder, discontinuation, or patient preference, substitutions are permitted for wound care products on this order. [facility] ITEM DESCRIPTION Jose-Band LF Latex Free Elastic Bandage with Hook and Loop Closure, Wound Care Treatment, NS, 3 in. x 5 yd., Box (10) [facility] Comment: Qty: 2 Substitution Status: In the event of product backorder, discontinuation, or patient preference, substitutions are permitted for wound care products on this order. 06/22/2025 2:05 PM EST us Mary Vicente MD DME ORDERABLES Final Result [facility] D[facility] * (ABNORMAL) POCT glucose meter (05/18/2025 8:09 AM EST) Only the most recent of96 resultswithin the time period is included. [facility] POCT Glucose 124(H) 74 - 99 mg/dL 05/18/2025 8:11 AM EST [facility] Comment:Accuracy of a glucos e result [...] Comment 05/18/2025 8:11 AM EST [facility] Real Estate Director ID Char Hinojosa 05/18/2025 8:11 AM EST HEALTHCARE LAB Device ID [id number] 05/18/2025 8:11 AM EST [facility]ARE LAB Specimen Type POC Capillary 05/18/2025 8:11 AM EST [facility] Blood Capillary blood specimen / Unknown 05/18/2025 8:09 AM EST 05/18/2025 8:11 AM EST Wily Goyal DO LAB POINT OF CARE TE ST DOCKED DEVICE UNSOLICITED RESULTS Final Result Performing Organization Address City/State/[facility] Co de Phone Number HEALTHCARE LAB [address] [place] [address] * ECHO, ADULT TRANSTHORACIC COMPLETE W/ CONTRAST [...] Ao Diam 37 mm HANK ISCV PA VA(ACCEL) 24.6 mmHg HANK ISCV LV mean PG [...] is no recent study available for direct wuye-[id number] comparison. Left Ventricle The left ventricle is [...] is no recent study available for direct gobh-nv-pscf comparison. [facility] DO CV ECHO PROCEDURES Final Result * ECG Adult (05/16/2025 3:33 PM EST) Only the most recent of6 resultswithin the time period is included. EKG DIAGNOSIS CLASS Abnormal MUSE ECG Ventricular Rate 58 BPM MUSE ECG Atrial Rate 58 BPM MUSE ECG VA Interval 184 ms MUSE ECG QRSD Interval 158 ms MUSE ECG QT Interval 496 ms MUSE ECG QTC Interval 486 ms MUSE ECG P [place] 30 degrees MUSE ECG R [place] -35 degrees MUSE ECG T Wave [place] -5 degrees MUSE ECG Diagnosis Sinus bradycardia [...] 3:33 PM EST 05/18/2025 12:15 AM EST [facility] DO ECG ORDERABLES Final Result MUSE ECG * (ABNORMAL) CBC and Differential (05/16/2025 4:08 AM EST) Only the most recent of12 resultswithin the time period is included. Pathologist [facility] WBC Count 7.97 3.70 - 10.30 10*3/uL LAB HEMATOLOGY METHOD 05/16/2025 4:26 AM EST [facility] RBC Count 4.27(L) 4.60 - 6.10 10*6/uL LAB HEMATOLOGY METHOD 05/16/2025 4:26 AM EST [facility] HGB 9.5(L) 13.7 - 17.5 g/dL LAB HEMATOLOGY METHOD 05/16/2025 4:26 AM EST [facility] HCT 31.6(L) 40.0 - 51.0 % LAB HEMATOLOGY METHOD 05/16/2025 4:26 AM EST [facility] Platelet Count 264 155 - 369 10*3/uL LAB HEMATOLOGY METHOD 05/16/2025 4:26 AM [facility] MCV 74(L) 79 - 98 fL LAB HEMATOLOGY METHOD 05/16/2025 4:26 AM [facility] MCH 22.2(L) 26.0 - 32.0 pg LAB HEMATOLOGY METHOD 05/16/2025 4:26 AM EST [facility] MCHC 30.1(L) 30.7 - 35.5 g/dL LAB HEMATOLOGY METHOD 05/16/2025 4:26 AM [facility] RDW 17.9(H) 11.5 - 14.5 % LAB HEMATOLOGY METHOD 05/16/2025 4:26 AM [facility] MPV 9.2 8.8 - 12.5 fL LAB HEMATOLOGY METHOD 05/16/2025 4:26 AM [facility] nRBC 0.0 <=0.0 per 100 WBCs LAB HEMATOLOGY METHOD 05/16/2025 4:26 AM [facility] Differential Type Automated LAB HEMATOLOGY METHOD 05/16/2025 4:26 AM [facility] Neutrophils % 67 % LAB HEMATOLOGY METHOD 05/16/2025 4:26 AM [facility] Lymphocytes % 16 % LAB HEMATOLOGY METHOD 05/16/2025 4:26 AM [facility] Monocytes % 12 % LAB HEMATOLOGY METHOD 05/16/2025 4:26 AM [facility] Eosinophils % 3 % LAB HEMATOLOGY METHOD 05/16/2025 4:26 AM [facility] Basophils % 1 % LAB HEMATOLOGY METHOD 05/16/2025 4:26 AM [facility] Immature Granulocytes % 1 % LAB HEMATOLOGY METHOD 05/16/2025 4:26 AM [facility] Neutrophils Absolute 5.39 1.60 - 6.10 10*3/uL LAB HEMATOLOGY METHOD 05/16/2025 4:26 AM [facility] Lymphocytes Absolute 1.30 1.20 [...] ORDERABLES Final Re sult Performing Organization Address City/[facility]/ZIP Co de Phone Number [facility] [address] [place] [address] * Phosphorus, Plasma (05/16/2025 4:08 AM EST) [...] [facility] [address] [place] [address] * (ABNORMAL) Magnesium, Plasma (05/16/2025 4:08 AM [...] [facility] [address] [place] [address] * (ABNORMAL) Basic Metabolic Panel, Plasma (05/16/2025 [...] Re sult Performing Organization Address [facility] [place] [address] * PSA, diagnostic (05/06/2025 12:27 PM EDT) PSA, Diagnostic, Serum 0.03 0.00 - 2.50 ng/mL 05/06/2025 1:10 PM EDT [facility] Blood Venous blood specimen / Unknown Venipuncture / Unknown 05/06/2025 12:27 PM EDT 05/06/2025 12:33 PM EDT Narrative [facility] - 05/06/2025 1:10 PM EDT Performed by Bella electrochemiluminescent immunoassay which is standardized against the PSA [place] Reference Standard (WHO 96/670). Results obtained with different test methods or kits cannot be used interchangeably. Diane Guzman MD LAB BLOOD ORDERABLES Final Result Performing Organization Address [facility] [place] [address] * Creatine Kinase (CK), Total (05/03/2025 6:22 PM EDT) Only the most recent of4 resultswithin the time period is included. Creatine Kinase, Plasma 54 49 - 320 U/L 05/03/2025 7:13 PM EDT [facility] Blood Venous blood specimen / Unknown Venipuncture / Unknown 05/03/2025 6:22 PM EDT 05/03/2025 6:38 PM EDT Diane Guzman MD LAB BLOOD ORDERABLES Final Result [facility] [address] [place] [address] * (ABNORMAL) Comprehensive metabolic panel (05/03/2025 6:22 [...] BLOOD ORDERABLES Final Result Performing Organization Address [facility] Co de Phone Number [facility] [address] [place] [address] * Hepatitis B Surface Antibody, Quantitative (05/03/2025 3:16 AM EDT) Pathologist [facility] Hepatitis B Surface Antibody, Quantitative <8.00 NonReactiv [...] Final Result Performing Organization Address City/[facility]/ZIP Co de Phone Number [facility] [address] [place] [address] * Hepatitis A Antibody IgG (05/03/2025 3:16 AM EDT) Pathologist [facility] Hepatitis A Antibody IgG Negative Negative 05/03/2025 4:28 AM EDT [facility] Blood Venous blood specimen / Unknown Venipuncture / Unknown 05/03/2025 3:16 AM EDT 05/03/2025 3:24 AM EDT us Diane Guzman MD LAB BLOOD ORDERABLES Final Result Performing Organization Address City/[facility]/ZIP Co de Phone Number [facility] [address] [place] [address] * Hepatitis B Core Total Antibody IgG,IgM (05/03/2025 3:16 AM EDT) Hepatitis B Core Total Antibody IgG,IgM Negative Negative 05/03/2025 4:28 AM EDT [facility] Blood Venous blood specimen / Unknown Venipuncture / Unknown 05/03/2025 3:16 AM EDT 05/03/2025 3:24 AM EDT us Diane Guzman MD LAB BLOOD ORDERABLES Final Result Performing Organization Address City/[facility] [place] [address] * Hepatitis B Surface Antigen (05/03/2025 3:16 AM EDT) [facility] Hepatitis B Surf Antigen Negative Negative 05/03/2025 4:28 AM EDT [facility] Blood Venous blood specimen / Unknown Venipuncture / Unknown 05/03/2025 3:16 AM EDT 05/03/2025 3:24 AM EDT us Diane Guzman MD LAB BLOOD ORDERABLES Final Result Performing Organization Address City/[facility] Co de Phone Number [facility] [address] [place] [address] * Nasopharyngeal Respiratory Panel (05/02/2025 1:05 PM EDT) [facility] Nasopharyngeal Respiratory PCR Interpretation Not Detected [...] Respiratory PCR Panel is performed using the Viralicalex instrument. This test is FDA approved for use with Nasopharyngeal swabs only. This test is used for clinical purposes. It should not be regarded as investigational or for research. The [facility] Clinical [facility] is certified under the Clinical Laboratory Improvement Amendments of 1988 (CLIA-88) as qualified to perform high complexity clinical laboratory testing. Diane Guzman MD LAB MICROBIOLOGY - GENERAL ORDERABLES Final Result [facility] [address] [place] [address] * Surgical Pathology Exam (05/01/2025 8:13 AM EDT) Case Report Surgical Pathology Case: [id number] Authorizing Provider: Mray Vicente MD Collected: 05/01/2025 0813 Ordering Location: [facility] OPERATING ROOM Received: 05/01/2025 0917 Pathologist: Vidya [...] foot (CMS/HCC) [M86.671] 05/09/2025 9:56 AM EDT [facility] [...] The wound extends into the underlying bone. Pinion Polisher sections are submitted as follows: A1-A2: Necrotic lateral skin A3: Bone underlying gaping wound, following decalcification A4: Bone margin, following decalcification BLAS Kwok ([facility]) B. R 5TH TOE MARGIN The specimen is received fresh and placed in formalin, labeled R 5th toe MARGIN , and consists of a 2.8 x 2.8 x 0.6 cm aggregate of hemorrhagic bony fragments. The specimen is entirely submitted in cassette B1, following decalcification. Cold Time: 25m BLAS Kwok ([facility]) 05/09/2025 9:56 AM EDT [facility] [...] LAB PATHOLOGY ORDERABLES Edited Result - Final [facility] [address] [place] [id number] * PB POINT OF CARE IMAGING PLACEHOLDER [...] monitoring: continuous pulse ox, heart rate and monitor tech Block type: adductor canal and popliteal Laterality: [...] ORDERA BLES Final Result BLOOD BANK [address] [place] [address], * POC Imaging (05/01/2025) Anatomical Region Laterality [...] 04/29/2025 3:19 AM EDT us Dirk A Mosque CUSHION GUM APPLICATOR, DNP LAB BLOOD ORDERABLES Fin al Result [facility] [address] [place] [address] * TSH (04/29/2025 3:04 AM EDT) Thyroid Stimulating Hormone, Plasma 1.58 0.40 - 4.20 uIU/mL 04/29/2025 3:55 AM EDT [facility] Blood Venous blood specimen / Unknown Venipuncture / Unknown 04/29/2025 3:04 AM EDT 04/29/2025 3:19 AM EDT Sy De La Fuente APRN, DNP LAB BLOOD ORDERABLES Fin al Result Performing Organization Address [facility] Co de Phone Number [facility] [address] [place] [address] * (ABNORMAL) Hemoglobin A1c (04/29/2025 3:04 AM [...] Adults <6.0% Children and Adolescents <7.5% Source: [place] [employer]. Standards of medical care in diabetes,2017. Diabetes Care.2017:40 (suppl 1):S1-S135. us Sy De La Fuente APRN, DNP LAB BLOOD ORDERABLES Fin al Result [facility] [address] [place] [address] * Folate (04/29/2025 3:04 AM EDT) Folate, Serum 10.5 >4.6 ng/mL 04/29/2025 4:05 AM EDT [facility] Blood Venous blood specimen / Unknown Venipuncture / Unknown 04/29/2025 3:04 AM EDT 04/29/2025 3:20 AM EDT Sy De La Fuente CUSHION GUM APPLICATOR, DNP LAB BLOOD ORDERABLES Fin al Result Performing Organization Address City/[facility] Co de Phone Number [facility] [address] [place] [address] * Ferritin (04/29/2025 3:04 AM EDT) Ferritin, Serum 40 20 - 400 ng/mL 04/29/2025 4:06 AM EDT [facility] Blood Venous blood specimen / Unknown Venipuncture / Unknown 04/29/2025 3:04 AM EDT 04/29/2025 3:20 AM EDT us Sy De La Fuente APRN, DNP LAB BLOOD ORDERABLES Fin al Result Performing Organization Address [facility] de Phone Number [facility] [address] [place] [address] * Vitamin B12 (04/29/2025 3:04 AM EDT) Vitamin B12, Serum 338 210 - 1,033 pg/mL 04/29/2025 4:06 AM EDT [facility] Blood Venous blood specimen / Unknown Venipuncture / Unknown 04/29/2025 3:04 AM EDT 04/29/2025 3:20 AM EDT us Sy De La Fuente CUSHION GUM APPLICATOR, DNP LAB BLOOD ORDERABLES Fin al Result Performing Organization Address City/[facility] Co de Phone Number [address] [address] * Cortisol (04/29/2025 3:04 AM EDT) Cortisol 2.80 Before 10am: 3.7 - 19.4. After 5pm: 2.9 - 17.3 ug/dL 04/29/2025 4:22 AM EDT [facility] Comment:Testing performed on Matt Office Machine Repair Shop Supervisor, standardized against INTERMEDIATE Reference Standard concentration values assigned by LC-MS/MS and verified by BCR 192 and BCR 193 certified reference materials. Blood Venous blood specimen / Unknown Venipuncture / Unknown 04/29/2025 3:04 AM EDT 04/29/2025 3:19 AM EDT us Sy De La Fuente CUSHION GUM APPLICATOR, DNP LAB REF LAB BLOOD AND FL UID ORD Final Result [facility] [address] [place] [address] * VAS Ankle Brachial Index - GABBI [...] are demonstrated at the levels of the SALES DEPARTMENT SUPERVISOR and DPA. Segmental pressures are within normal limits with a SALES DEPARTMENT SUPERVISOR GABBI of 1.1 (172 mmHg) and a DPA GABBI of 1.0 (149 mmHg). Digit pressures are of 122 mmHg. Left: Multiphasic waveforms are demonstrated at the levels of the SALES DEPARTMENT SUPERVISOR and DPA. Segmental pressures are within normal limits with a SALES DEPARTMENT SUPERVISOR GABBI of 1.1 (164 mmHg) and a DPA GABBI of 1.0 (153 mmHg). Digit pressures are of 151 mmHg. Procedure Note Chris Schaefer MD - 04/28/2025 CLINICAL INDICATION: Diabetic foot ulcer TECHNIQUE: Non-invasive, continuous wave Doppler exam with segmental pressures andspectral analysis of the lower extremity was performed. COMPARISON: None. FINDINGS: Right: Multiphasic waveforms are demonstrated at the levels of the SALES DEPARTMENT SUPERVISOR andDPA. Segmental pressures are within normal limits with a SALES DEPARTMENT SUPERVISOR GABBI of 1.1(172 mmHg) and a DPA GABBI of 1.0 (149 mmHg). Digit pressures are of 122mmHg. Left: Multiphasic waveforms are demonstrated at the levels of the SALES DEPARTMENT SUPERVISOR andDPA. Segmental pressures are within normal limits with a SALES DEPARTMENT SUPERVISOR GABBI of 1.1(164 mmHg) and a [...] on04/28/2025 4:14 PM Sy De La Fuente CUSHION GUM APPLICATOR, DNP CV VASCULAR PROCEDURES F inal Result [...] and its performance characteristics determined by the [facility] Clinical Microbiology Laboratory. Although the media is FDA-approved, it is not FDA-approved for all specimen types submitted. The FDA has determined that such clearance or approval is not necessary. This test is used for surveillance purposes. It should not be regarded as investigational or for research. The [facility] is certified under the Clinical Laboratory Improvement Amendments of 1988 (CLIA-88) as qualified to perform high complexity clinical laboratory testing. Sy De La Fuente APRN, DENISE LAB MICROBIOLOGY - GENER AL ORDERABLES Final Result Performing Organization Address [facility]/ZIP Co de Phone Number [facility] [address] [place] [address] * Lavender Top (04/28/2025 8:13 AM EDT) Extra Hold for add-ons 04/28/2025 11:01 AM EDT [facility] Comment:Auto resulted. Blood Venous blood specimen / Unknown 04/28/2025 8:13 AM EDT 04/28/2025 8:19 AM EDT Marjorie Myers MD LAB BLOOD ORDERABLES Final Resul t Performing Organization Address [facility] Co de Phone Number [facility] [address] [place] [address] * Light Green Top (04/28/2025 8:13 AM EDT) Extra Hold for add-ons 04/28/2025 11:01 AM EDT [facility] Comment:Auto resulted. Blood Venous blood specimen / Unknown 04/28/2025 8:13 AM EDT 04/28/2025 8:19 AM EDT Marjorie Myers MD LAB BLOOD ORDERABLES Final Resul t Performing Organization Address [facility] Co de Phone Number [facility] [address] [place] [address] * APTT (04/28/2025 8:13 AM EDT) aPTT 32 25 - 35 sec 04/28/2025 8:33 AM EDT [facility] Blood Venous blood specimen / Unknown Venipuncture / Unknown 04/28/2025 8:13 AM EDT 04/28/2025 8:18 AM EDT us Sy De La Fuente APRN, DNP LAB BLOOD ORDERABLES Fin al Result Performing Organization Address [facility] de Phone Number [facility] [address] [place] [address] * (ABNORMAL) PT/INR (04/28/2025 8:13 AM EDT) Prothrombin Time 17.5(H) 12.0 - 14.3 sec 04/28/2025 8:33 AM EDT [facility] INR 1.4(H) 0.9 - 1.1 04/28/2025 8:33 AM EDT [facility] Blood Venous blood specimen / Unknown [...] INR 2.5 to 3.5 Prevention of recurrent RI INR 2.5 to 3.5 us Sy De La Fuente APRN, DENISE LAB BLOOD ORDERABLES Fin al Result Performing Organization Address [facility] de Phone Number [address] [address] * CT Foot Right w IV Contrast [...] COMMUNICATION: Per this written report. Drafted by iKm Bai MD on 04/27/2025 11:38 PM Final [...] us Jessa Law MD [facility] Final Result [facility] [address] [place] [address] * (ABNORMAL) Blood gas, venous (04/27/2025 10:16 [...] ORDERABLES Final Resu lt Performing Organization Address [facility]/ZIP Co de Phone Number [facility] [address] [place] [address] * ED HIV 1/2 Antibody/Antigen Screen w/Reflex [...] ORDERABLES Final Res ult Performing Organization Address [facility] Co de Phone Number [facility] [address] [place] [address] * Beta-Hydroxybutyric Acid (04/27/2025 9:37 PM EDT) Beta-Hydroxybut yric Acid, Plasma 0.23 <=0.27 mmol/L 04/27/2025 10:56 PM EDT [facility] Blood Venous blood specimen / Unknown Venipuncture / Unknown 04/27/2025 9:37 PM EDT 04/27/2025 9:40 PM EDT us Jessa Law MD LAB BLOOD ORDERABLES Final Resu lt Performing Organization Address [facility]/ZIP Co de Phone Number [facility] [address] [place] [address] * (ABNORMAL) Procalcitonin (04/27/2025 9:37 PM EDT) Pathologist [facility] Procalcitonin, Plasma 0.11(H) <0.09 ng/mL 04/28/2025 8:36 [...] predict 28 day mortality risk. Please consult [email or web address] for more information. Test performed at [facility]. us Sy De La Fuente APRN, DENISE LAB BLOOD ORDERABLES Fin al Result Performing Organization Address City/[facility]/ZIP Co de Phone Number [facility] [address] [place] [address] * Hepatitis C Antibody - ED (04/27/2025 9:37 PM EDT) Pathologist [facility] Hepatitis C Antibody Negative Negative 04/27/2025 10:41 PM EDT [facility] Blood Venous blood specimen / Unknown Venipuncture / Unknown 04/27/2025 9:37 PM EDT 04/27/2025 10:00 PM EDT us Pool Jean MD LAB BLOOD ORDERABLES Final Res ult Performing Organization Address City/[facility]/ZIP Co de Phone Number [facility] [address] [place] [address] * (ABNORMAL) Sed rate, automated (04/27/2025 9:37 PM EDT) Sedimentation Rate >111(H) <15 mm/hr 2024 11:10 PM EDT [facility] Blood Venous blood specimen / Unknown Venipuncture / Unknown 04/27/2025 9:37 PM EDT 04/27/2025 9:40 PM EDT us Jessa Law MD LAB BLOOD ORDERABLES Final Resu lt Performing Organization Address [facility] Co de Phone Number [facility] [address] [place] [address] * (ABNORMAL) C-reactive protein (04/27/2025 9:37 PM [...] ORDERABLES Final Res ult Performing Organization Address [facility] Co de Phone Number [facility] [address] [place] [address] from Last 3 Months Insurance [place] [address] Advance Directives * Full Code (Latest Code [...] updated to appropriate status: Yes Care Teams Mobile Architect Relationship Specialty Start Date End Date Malcolm Hayward APRN [address] [place] [id number] PCP - General 09/21/23
--- OUTSIDE RECORDS SUMMARY | 2025-06-29 13:50 | XMS_ITS | Encounter Summary ---
Author Organization Healthcare Address [address] [id number] Care Team Providers Care Fulling Machine Operator Name Role Phone Malcolm Hayward ADALGISA Primary Care Provider [phone] Encounter Details Date Type Department Care Team (Late st Contact Info) Description 05/26/2025 Telephone Wound Care [address] [place] [address] Sheila Marcano, BLAS [address] [place] [address] Social History Tobacco Use Types [...] any time in the past 12 m [facility], were you homeless or living in a long-term (including now)? No 04/28/2025 [facility] Utilities Answer Date Recorded In [...] a culture done of his wound at [facility] and it came back positive for pseudomonas aeruginosa. She said [facility] said oral abx are not going to work, so she is wondering what she needs to do? Get in touch w/ ID, bring him to ED to be admittedfor IV abx? Asking for a call back. Thanks! Best contact number: Other: [phone] Optimal time of day to reach caller: [...] Description 08/03/2025 2:00 PM EST Office Visit [facility] [address] [facility] 5th Floor [address] [place] [address] Mary Vicente MD [address] [facility] [address] [place] [address] documented as of this encounter [...] documented as of this encounter Care Teams Fulling Machine Operator Relationship Specialty Start Date End Date Malcolm Hayward APRN [address] [place] [address] PCP - General 09/21/23 documented as of this encounter
--- OUTSIDE RECORDS SUMMARY | 2025-06-29 13:50 | XMS_ITS | Encounter Summary ---
Author Organization [facility] Address [address] [id number] Care Team Providers Care High School Business Teacher Name Role Phone Malcolm Hayward APRN Primary Care Provider [phone] Encounter Details Date Type Department Care Team [...] in a retirement (including now)? No 04/28/2025 [facility] Utilities Answer Date Recorded In [...] [place] [facility] [address] [facility] 5th Floor Wing [address] [place] [address] Mary Vicente MD [address] [facility] [address] [place] [address] documented as of this encounter Visit Diagnoses [...] documented as of this encounter Care Teams High School Business Teacher Relationship Specialty Start Date End Date Malcolm Hayward, ADALGISA [address] [place] [address] [place] [address] PCP - General 09/21/23 documented as of this encounter
--- OUTSIDE RECORDS SUMMARY | 2025-06-29 13:50 | XMS_ITS | Encounter Summary ---
Author Organization Healthcare Address [address] [id number] Care Team Providers Care Homicide Detective Name Role Phone Malcolm Hayward ADALGISA Primary Care Provider [phone] Reason for Visit * Reason Onset Date Comments HCN - Patient Message 05/24/2025 Call pankaj morrissey HCN Status Update Call #2 05/24/2025 Encounter Details Date Type Department Care Team (Tonio st Contact Info) Description 05/24/2025 Telephone [place] [facility] [address] [facility] 5th Floor Wing [address], [address] [place] [address] Sheila Marcano, PA [address] [facility] [address] [place] [address] HCN - Patient Message (Call [...] living in a intermediate (including now)? No 04/28/2025 [facility] [...] of the initial request. Best contact number: [phone] Optimal time of day to reach caller: [...] optimal time of day to reach caller: [phone] Note: Please do not reply to this [...] Description 08/03/2025 2:00 PM EST Office Visit [place] [facility] [address] 5th [address] [place] [address] Mary Vicente MD [address] [facility] [address] [place] [address] documented as of this encounter [...] documented as of this encounter Care Teams Homicide Detective Relationship Specialty Start Date End Date Malcolm Hayward APRN [address] [place] [address] PCP - General 09/21/23 documented as of this encounter
--- OUTSIDE RECORDS SUMMARY | 2025-06-29 13:50 | XMS_ITS | Encounter Summary ---
Author Organization [facility] Address [address] [id number] Care Team Providers Care Quality Improvement Coordinator (Rn) Name Role Phone Malcolm Hayward PET FEEDER Primary Care Provider [phone] Reason for Visit * Reason Comments Med Refill Encounter Details Date Type Department Care Team (Late st Contact Info) Description 12/02/2024 Refill [facility] Endocrinology [address] [place] [address] Divine Archer, PET FEEDER [address] [facility] [address] [place] [address] Social History Tobacco Use Types [...] Description 08/03/2025 2:00 PM EST Office Visit [facility] [address] [facility] 5th Floor Wing [address] [place] [address] Mary Vicente MD [address] [facility] [address] [place] [address] documented as of this encounter [...] documented as of this encounter Care Teams Quality Improvement Coordinator (Rn) Relationship Specialty Start Date End Date Malcolm Hayward APRN [address] [place] [address] PCP - General 09/21/23 documented as of this encounter
[2025-06-29 14:10] LABS: Bilirubin,Urine Negative (Negative); Color,Urine YELLOW (Yellow); Glucose,Urine (UA) Negative (Negative); Ketones,Urine Negative (Negative); Leukocyte Esterase,Urine 1+ (Negative); PH,Urine 7.5 (5.0-8.5); Protein,Urine 2+ (Negative); Specific Gravity, Urine 1.015 (1.005-1.030); Urobilinogen,Urine 0.2 EU/dl (0.2)
[2025-06-29 14:31] LABS: Bacteria,Urine 4+ /lpf; WBC,Urine 20-50 #/hpf (0-3)
== END 2025-06-29 23:59 | disposition home or self-care (01) ==
LOC: LAB 13:32
PROVIDERS: PCP Nurse Practitioner Family; Visit Provider Nurse Practitioner Family
DX: N39.0 Urinary tract infection, site not specified (principal)
CPT/HCPCS: 81001; 87086

== ENCOUNTER 2025-07-04 16:18 | Outpatient (CLI) | payer MEDICARE, BC, SELFPAY ==
--- OUTSIDE RECORDS SUMMARY | 2025-04-27 20:29 | XMS_ITS | Encounter Summary ---
Author Organization [facility] Address [address] [place] [address] Care Team Providers Care Ethnology Teacher Name Role Phone DontaemyrtleMalcolm camejo ADALGISA Primary Care Provider [phone] Reason for Referral * Consultation (Routine) - Authorized Specialty Diagnoses / Procedures Referred By Contac t Referred To Contact Endocrinology Diagnoses Uncontrolled type 2 diabetes mellitus with hyperglycemia, with long-term current use of insulin Type 2 diabetes mellitus with diabetic peripheral angiopathy without gangrene, with long-term current use of insulin Martina Foote PA [address] [place] [address] Phone: tel: fax: Referral ID Status Reason Start Date Expiration Date Visits Requested Visits Authorized [id number] Authorized Specialty Services Required 11/04/2026 1 1 * Consultation (Routine) - Closed Specialty Diagnoses / Procedures Referred By Contact Referred To Contact Vascular Surgery / [facility] Diagnoses Diabetic foot ulcer with osteomyelitis Diane Guzman MD [address] [place] [address] Phone: tel:[phone] fax: [facility] [address] [facility] 5th Floor [address] [place] [address] Phone: tel: fax: Referral ID Status Reason Start Date Expiration Date V isits Requested Visits Authorized [id number] Closed Specialty Services Required 05/03/2025 11/02/2026 1 1 Reason for Visit * Reason Comments Wound Check * Auth/Cert (Routine) Specialty Diagnoses / Procedures Referred By Anish t Referred To Contact Diagnoses Diabetic foot ulcer with osteomyelitis Greg Lee MD [address] [place] [address] Phone: tel: fax: [facility] Emergency Department [address] [place] [address] Phone: tel: Referral ID Status Reason Start Date Expiration Date Visits Re quested Visits Authorized [id number] 1 1 Encounter Details Date Type Department Care Team (Latest Contact Info) Description 04/27/2025 9:29 PM EDT - 05/18/2025 11:48 AM EST Hospital Encounter [facility] Inpatient [address] [place] [address] Jessa Law MD [address] [place] [address] Man Garcia, DO [address] [place] [address] Greg Lee MD [address] [place] [address] Marjorie Myers MD [address] [place] [address] Diane Guzman MD [address] [place] [address] Selin Lee MD [address] [place] [address] Wily Goyal, DO [address] [place] [address] Other chronic osteomyelitis of right [...] any time in the past 12 m [facility], were you homeless or living in a nursing home (including now)? No 04/28/2025 [facility] Utilities Answer Date Recorded In the past 12 months has [employer] electric, gas, oil, or water company threatened [...] 5 tablet 05/17/2025 Insulin Pen Needle (Pen [place]) 31G X 5 MM mis USE TO [...] capsule by mouth daily. 05/10/2018 HYDROcodone-acetami nophen ([place]) 10-325 MG tablet Take 1 tablet by [...] provided Taken 05/17/2025 2228 by Ivan Slaughter RNenvironmental health and safety leader Interventions: medication (see MAR) Goal: Optimal Wound [...] Ongoing, Progressing Intervention: Promote Activity and Functional [place] Flowsheets Taken 05/18/2025 1131 by Kylee Gonzalez [...] DO PCP name and Address: Malcolm Hayward, OB/GYN NURSE [address] [place] [address] / [place] [id number] Brief History of Present Illness 49 M [...] He was accepted for discharge to [facility] rehab facility. Urinary Retention and Recurrent UTI [...] was medically stable for discharge to [facility] rehab facility, with recommendations for close follow-up [...] HYDROcodone-acetaminophen 10-325 MG tablet Commonly known as: [place] Take 1 tablet by mouth every 6 [...] the skin 1 time per week. Pen [place] 31G X 5 MM misc USE TO [...] Your Medications These medications were sent to [facility] [place] [address] [place] [address] gabapentin 600 MG tablet HYDROcodone-acetaminophen 10-325 MG tablet insulin regular 100 UNIT/ML injection vial insulin regular 500 UNIT/ML CONCENTRATED injection vial Information about where to get these medications is not yet available Ask your nurse or doctor about these medications ferrous sulfate 324 MG tablet delayed-release Discharge Diagnosis Medical Problems Active and Resolved Hospital Problems Hospital Morbid obesity ([facility]) Hypertension Type 2 diabetes Overview Signed 04/14/2022 [...] H 05/30/2025 2:40 PM Sheila Marcano PA [facility] 06/14/2025 1:40 PM Divine Archer APRN ENDOT[facility]BN[facility] 06/22/2025 1:40 PM Mary Vicente MD [facility] Pertinent Physical Exam At Time of [...] Note Gonzalo Smalls 49 y.o. male CSN: [id number] Admission: 04/27/2025 9:29 PM Primary Problem: Diabetic foot ulcer Primary Earth Science Teacher: Primary Caregiver: Self Assistance Available at Discharge: Availability of Care Givers (#Hours): 24 hours Housing Circumstances-Z Codes: Housing Circumstances (select all that apply): Low Income (101-300% Federal Poverty Guidlines) - Z596 Discharge Facility/Level of Care Needs: Discharge Facility/Level of Care Needs: 62-Rehab facilty ([place]) Patient's Choice of Community Agency(s): Patient's Choice of Community Agency(s): [facility] Patient/Family Anticipated Services at Transition: Patient/Family Anticipated [...] Recieved By: Gonzalo Smalls- the patient Follow-up: [facility] [address] [facility] 5th Floor [address] [facility] [id number] Primary care provider (PCP) Malcolm Hayward, OB/GYN NURSE [address] [facility] [address] Discharge Transportation: Transportation Anticipated: medical transport Transportation [...] Araceli in admission who confirmed pt's acceptance #[phone]. Pt updated and in agreement with d/c plan. Team and bedside RN updated. Bedside RN to call report to #[phone]. Araceli has access to [employer] and will get d/c s [facility] that way. Script for controlled medication to be sent to [facility] [place]. Ambulance to transport the pt is [...] Mobility Bed Mobility Exam: Scooting/Bridging Level of [place]: Contact guard Physical/Nonphysical Assist: Verbal Cues, Minimal cues Assistive Device: Overhead trapeze Bed Mobility Exam: Supine to Sit Level of [place]: Minimum assist (75% patient's effort) Physical/Nonphysical Assist: HOB elevated, Verbal Cues, Minimal cues Assistive Device: Overhead trapeze Bed Mobility Exam: Sit to Supine Level of [place]: Stand-by assist Physical/Nonphysical Assist: Verbal Cues, Minimal cues Assistive Device: Overhead trapeze Transfers Transfer Exam: Sit to stand Level of [place]: Maximum assist (25% patient's effort) Physical/Nonphysical Assist: Verbal Cues, Nonverbal cues (demo/gestures), Additional assist utilized for safety, Set-up required, Minimal cues Assistive Device: Walker, rolling (bariatric) Transfer Exam: Stand to Sit Level of [place]: Maximum assist (25% patient's effort) Physical/Nonphysical Assist: [...] help from Spouse Level of Mobility Mobility [place] Independent gait with device History of Falls [...] go, I'm just nervous. Visitors Present No Press Tool Maker (if applicable) Press Tool Maker: Not Applicable OBJECTIVE PAIN Pt was without c/o pain at the beginning of this session and throughout the PT treatment. 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 TRANSFERS Level of [place] Physical/Non- physical Assist Adaptive Equipment Utilized Sit [...] placement, sequencing, weight shifting, appropriate use of ENRICHMENT TEACHER, and maintaining NWB on RLE. Tactile cues provided to assist in sequencing and weight shifting. AMBULATION Level of [place] Distance Adaptive Equipment Utilized Ambulation N/A N/A N/A Comments Unable to side step or progress to forward hop step at bariatric RW level due to inabilityto maintain prolonged standing position while maintaining NWB in RLE. BALANCE Postural Appearance Posture: Within Functional Limits, Forward head Level of [place] Balance Support Activities Static Sit Standby assist [...] Abduction * Ankle pumps x1-2 sec holds NATIONAL DEDICATED TRUCK DRIVER provided minimal verbal and tactile cueing to [...] overall. Standardized Assessments Standardized Assessments Standardized Assessments: [facility] 6-Clicks Mobility Assessment [facility] 6-Clicks Mobility Assessment Difficulty patient has [...] climbing 3-5 steps with a railing?: Unable [facility] 6-Clicks Mobility Assessment Total : 11 PATIENT / FAMILY EDUCATION Patient was educated regarding the PT POC and recommendations regarding discharge planning, as wellas progressively increased time spent out of bed/up to chair, and continued mobilization / ambulation with nursing staff as tolerated to promote increased activity tolerance and Endurance. NATIONAL DEDICATED TRUCK DRIVER providing verbal cues/demonstration for pursed-lip breathing technique to promote improved ventilation, decreased respiratory rate and energy conservation with activity. NATIONAL DEDICATED TRUCK DRIVER stressed to patient the importance of having [...] has been following with urology outpatient at [facility]. They have postulated this to be [...] Ongoing, Progressing Intervention: Promote Activity and Functional [place] Flowsheets Taken 05/16/20251999 by Ivan Slaughter RN Activity Assistance Provided: assistance, 1 person Taken 05/16/20251948 by Ivan Slaughter RN Self-Care Promotion: independence encouraged Taken 05/15/2025 1148 by Santy Garcia, RN Adaptive Equipment Use: used independently * Progress Notes - Sugey Momin, OB/GYN NURSE - 05/17/2025 10:29 AM EST Endocrine - [...] mellitus - type 2 -Home medications: CGM: [employer] G7 Insulin regimen: U500 insulin: prescription for [...] -Diabetes education: completed 05/10 -Follow-up plan: home senior managing director - Dr Anette Kendall -Tentative discharge recommendations: -pt will need close monitoring by rehab facility provider as changes in diet and activity level maylead to changes in glycemic patterns and insulin requirement NOTE: -patient reports that once the new year hits, he worries about the cost of U500 insulin --> discussed cost through [employer]Ps - should be able to get vials of U500 at $35 per vial. Also discussed contacting [employer] directly for the financial assistance program. -hopefully [...] team via secure chat or page us [phone] during 7a-7p, Thursday-Thursday. For after hours please [...] Ongoing, Progressing Intervention: Promote Activity and Functional [place] Flowsheets (Taken 05/16/20251948) Self-Care Promotion: independence encouraged * Progress Notes - Chayo Jennings RN - 05/16/2025 2:16 PM EST Case Management Adult Progress Note Gonzalo Smalls 49 y.o. male CSN: [id number] Admission: 04/27/2025 9:29 PM Primary Problem: Diabetic foot ulcer Anticipated Discharge Date: 05/18/25 Pt is in a need for rehab placement and was referred and accepted by Merly Espinoza- LOLA CM spoke with Araceli in admission, ph#[phone] who confirmed pts acceptance. Pt updated and in agreement with d/c plan. Ambulance for to transport he pt at d/c is arranged for 9:30AM on 05/18. Team updated.RN CM will continue to follow and assist as needed. Chayo Jennings RN * Consults - Vivian Garcia RN - 05/16/2025 1:08 PM ESTAssociated Order(s): IP CONSULT TO DIABETIC EDUCATION Adult Diabetes Education Team Note Gnozalo Smalls 49 y.o. male CSN: [id number] This is a 49 y.o. male [facility] Diabetic [...] Hayward APRN, [facility] is Dr. Garvey in [place], [place]. Medication Education instructions given: The use [...] Prevention , pt reports he has a brisket puller as well Follow Ups: Provided with educational [...] has been following with urology outpatient at [facility]. They have postulated this to be [...] the video go to this web address: [email or web address] Or, scan this QR code with your [...] to gently smooth the nail. Have a brisket puller trim your nails if you can't see [...] remove corns, calluses, or warts by yourself. Aqio-lif-uyzrhbx products can burn or damage your skin. [...] your primary care doctor or by a brisket puller. This is a doctor who specializes in foot care. Some diabetes centers have regular foot clinics. Last Reviewed Date: 2024 00:00:00 ?? 2046-9229 [employer]. All rights reserved. This information is not intended as a substitute for professional medical care. Always follow your healthcare professional's instructions. * Ruy HoffmanMENG - Vivian Garcia RN - 05/16/2025 11:06 AM EST Images from the original note were not included. [address]89 Inspecting Your Feet (Diabetes) Pmte-kz-Dgmu: Last Reviewed Date: 2024 00:00:00 ?? 2629-9049 [employer]. All rights reserved. This information is not [...] -Diabetes education: completed 05/10 -Follow-up plan: home senior managing director - Anette Kendall -Tentative discharge recommendations: -pt will need close monitoring by rehab facility provider as changes in diet and activity level maylead to changes in glycemic patterns and insulin requirement NOTE: -patient reports that once the new year hits, he worries about the cost of U500 insulin --> discussed cost through [employer]Ps - should be able to get vials of U500 at $35 per vial. Also discussed contacting [employer] directly for the financial assistance program. -patient with plans to discharge to [facility] once able - need to check with [facility] to see if they are okay with utilizing U500 insulin if patient is able to bring in his own supply Insulin regimen - would like patient to utilize U500 home dosing at [facility] Continue Dexcom G7 CGM Likely continue Ozempic Likely continue metformin May substitute for therapeutic equivalent per insurance and retail PharmD approval -Supplies/scripts needed: Ensure patient has working glucose meter and supplies as back-up to CGM DM/Endo team will continue to follow. Please notify us as patient nears discharge for final recommendations Please contact Aielen Leonardo APRN [place] Adult Inpatient Diabetes team via secure chat orpage us at [phone] during 7a-7p, Thursday-Thursday. For after hours please contact the on-call Endocrine Fellow. Thank you for the opportunity to participate in this patient's care. - Reviewed notes by primary team and consulting services to determine appropriate plan of care as in the note. - Discussed plan and management with patient and coding educator Time Spent: I personally spent a [...] Note Gonzalo Smalls 49 y.o. male CSN: [id number] Room/Bed 117/117A Nutrition evaluation type: follow-up Reason [...] Supplemental oxygen O2 Delivery Method: Nasal cannula [place] Coma Scale Score: 15 Miguel Ángel [...] Weight Evaluation: Extreme Obesity (BMI > 40) [place] Body Weight (kg): 80.9 Percent [place] Body Weight: 311 Adjusted Body Weight (kg): [...] Regular Adult Carbohydrate Restriction: Consistent CHO 2 (6906-4719 Steven, 80 g/meal) Adult Sodium Restriction: 2,000 mg Na Percent Meals Eaten (%): 75-100% of meals Diet Experience and Nutrition History: Diet Education Provided: Will monitor Pertinent home medications: Albuterol, Bumex, Insulin, Metformin, Ozempic, Aldactone Anabaptist needs: Nutrition Focused Physical Exam: Physical exam [...] has been following with urology outpatient at [facility]. They have postulated this to be related to his diabetes and have had several voiding trials which have failed. Also has un dergone proctoscopy (?) which was normal. 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 and he [...] plan and management with patient. Selin Lee Real Estate Site Analyst Division of Hospital Medicine [facility] * Care Plan - Santy Garcia, RN [...] Note Gonzalo Smalls 49 y.o. male CSN: [id number] Admission: 04/27/2025 9:29 PM Primary Problem: Diabetic foot ulcer Anticipated Discharge Date: TBD Pt was referred to many SNF in and out [facility]. Few SNF are considering accepting the pt along with [facility], ph#[phone]. LOLA TOVAR spoke with Araceli- admission at [facility]. Araceli is stating that she is checking [...] (H) 05/13/2025 I reviewed bg tracing in [facility] glucose timeline 05/15/25 ASSESSMENT Hospital Course: [...] -Diabetes education: completed 05/10 -Follow-up plan: home senior managing director - Anette Kendall -Tentative discharge recommendations: -pt will need close monitoring by rehab facility provider as changes in diet and activity level maylead to changes in glycemic patterns and insulin requirement NOTE: -patient reports that once the new year hits, he worries about the cost of U500 insulin --> discussed cost through [employer]Ps - should be able to get vials of U500 at $35 per vial. Also discussed contacting [employer] directly for the financial assistance program. -patient with plans to discharge to [facility] once able - need to check with [facility] to see if they are okay with utilizing U500 insulin if patient is able to bring in his own supply Insulin regimen - would like patient to utilize U500 home dosing at [facility] Continue Dexcom G7 CGM Likely continue [...] team via secure chat orpage us at [phone] during 7a-7p, Thursday-Thursday. For after hours please [...] (H) 05/12/2025 I reviewed bg tracing in [facility] glucose timeline 05/14/25 ASSESSMENT Hospital Course: [...] -Diabetes education: completed 05/10 -Follow-up plan: home senior managing director - Anette Kendall -Tentative discharge recommendations: -pt [...] at $35 per vial. Also discussed contacting [employer] directly for the financial assistance program. -patient with plans to discharge to [facility] once able - need to check with [facility] to see if they are okay with utilizing U500 insulin if patient is able to bring in his own supply Insulin regimen - would like patient to utilize U500 home dosing at [facility] Continue Dexcom G7 CGM Likely continue [...] via secure chat or page us at [phone] during 7a-7p, Thursday-Thursday. For after hours please [...] Ongoing, Progressing Intervention: Promote Activity and Functional [place] Flowsheets Taken 05/14/2025 09 Self-Care Promotion: independence encouraged BADL personal objects within reach BADL personal routines maintained meal set-up provided Taken 05/14/2025 0800 Activity Assistance Provided: assistance, stand-by assistance, 2 people Taken 05/13/2025 09 Adaptive Equipment Use: used independently Problem: Self-Care Deficit Goal: Improved Ability to Complete Activities of Daily Living Outcome: Ongoing, Progressing Intervention: Promote Activity and Functional [place] Flowsheets Taken 05/14/202546 Self-Care Promotion: independence encouraged [...] has been following with urology outpatient at [facility]. They have postulated this to be related to his diabetes and have had several voiding trials which have failed. Also has un dergone proctoscopy (?) which was normal. 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 and he [...] plan and management with patient. Selin Lee Real Estate Site Analyst Division of Hospital Medicine [facility] * Care Plan - Asiya Nix RN [...] by Asiay Nix RN Outcome: Ongoing, Progressing Goal: Optimal [...] Ongoing, Progressing Intervention: Promote Activity and Functional [place] Flowsheets (Taken 05/13/20251999) Activity Assistance Provided: assistance, [...] mellitus - type 2 -Home medications: CGM: [employer] G7 Insulin regimen: U500 insulin: prescription for [...] -Diabetes education: completed 05/10 -Follow-up plan: home senior managing director - Anette Kendall -Tentative discharge recommendations: -pt will need close monitoring by rehab facility provider as changes in diet and activity level maylead to changes in glycemic patterns and insulin requirement NOTE: -patient reports that once the new year hits, he worries about the cost of U500 insulin --> discussed cost through SERPs - should be able to get vials of U500 at $35 per vial. Also discussed contacting [employer] directly for the financial assistance program. -patient with plans to discharge to [facility] once able - need to check with [facility] to see if they are okay with utilizing U500 insulin if patient is able to bring in his own supply Insulin regimen - would like patient to utilize U500 home dosing at [facility] Continue Dexcom G7 CGM Likely continue [...] via secure chat or page us at [phone] during 7a-7p, Thursday-Thursday. For after hours please [...] Ongoing, Progressing Intervention: Promote Activity and Functional [place] Flowsheets Taken 05/13/2025 0931 Adaptive Equipment Use: [...] has been following with urology outpatient at [facility]. They have postulated this to be related to his diabetes and have had several voiding trials which have failed. Also has un dergone proctoscopy (?) which was normal. 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 and he [...] plan and management with patient. Selin Lee Real Estate Site Analyst Division of Hospital Medicine [facility] * Care Plan - Genaro Haritha M [...] Ongoing, Progressing Intervention: Promote Activity and Functional [place] Flowsheets (Taken 05/12/20252128) Activity Assistance Provided: assistance, 2 people Self-Care Promotion: independence encouraged BADL personal objects within reach BADL personal routines maintained meal set-up provided * Progress Notes - Max Alexander - 05/12/2025 4:32 PM EDT Case Management Adult Progress Note Gonzalo Smalls 49 y.o. male CSN: [id number] Admission: 04/27/2025 9:29 PM Primary Problem: Diabetic foot ulcer Anticipated Discharge Date: TBD Plan of care reviewed with pt's care team; and per MD, pt is medically ready for discharge pending placement. SW sent 145 Referral via [facility]. SW will continue to follow-up with pt's MD and care team on their progress and discharge plan. Max Alexander, VISION SPECIALIST, SHORE MAN Senior Rewinder Operator/Case Management [facility] * Progress Notes - Selin Lee [...] has been following with urology outpatient at [facility]. They have postulated this to be related to his diabetes and have had several voiding trials which have failed. Also has un dergone proctoscopy (?) which was normal. 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 and he [...] plan and management with patient. Selin Lee Real Estate Site Analyst Division of [facility] Medicine [facility] * Progress Notes - Lynda Choudhury, OB/GYN NURSE - 05/12/2025 12:58 PM EDT Endocrine - [...] -Diabetes education: completed 05/10 -Follow-up plan: home senior managing director - Anette Kendall -Tentative discharge recommendations: -pt [...] at $35 per vial. Also discussed contacting [employer] directly for the financial assistance program. -patient with plans to discharge to [facility] once able - need to check with [facility] to see if they are okay with utilizing U500 insulin if patient is able to bring in his own supply Insulin regimen - would like patient to utilize U500 home dosing at [facility] Continue Dexcom G7 CGM Likely continue [...] via secure chat or page us at [phone] during 7a-7p, Thursday-Thursday. For after hours please [...] remission, Anxiety disorder, unspecified, Arthritis, Atrial fibrillation ([facility]), CAP (community acquired pneumonia) (05/19/2024), Cellulitis (05/19/2024), [...] understanding. Participants in Care Family/Caregiver Present: No Press Tool Maker: Not Applicable Presentation Oxygen Therapy: Supplemental oxygen [...] of Function Receives Help From: Spouse Mobility [place]: Independent gait with device ADL Performance: Needs assistance Bathing: Needs assist Upper Body Dressing: Needs assist Lower Body Dressing: Needs assist Grooming: Needs assist Toileting: Independent Eating: Independent Home Management Skills: Needs assist Patient/Family Goals Return home at [facility] Objective Pain Pt reported 7/10 [...] Mobility Bed Mobility Exam: Scooting/Bridging Level of [place]: Contact guard (scooting hips forward to edge of bed) Physical/Nonphysical Assist: Verbal Cues, Minimal cues Assistive Device: Overhead trapeze Bed Mobility Exam: Supine to Sit Level of [place]: Minimum assist (75% patient's effort) Physical/Nonphysical Assist: HOB elevated, Verbal Cues Assistive Device: Overhead trapeze Bed Mobility Exam: Sit to Supine Level of [place]: Stand-by assist Physical/Nonphysical Assist: Verbal Cues, Minimal cues Assistive Device: Overhead trapeze Transfers Transfer Exam: Sit to stand Level of [place]: Maximum assist (25% patient's effort) (x3 reps from edge of bed, good adherence to NWB RLE) Physical/Nonphysical Assist: Verbal Cues, Nonverbal cues (demo/gestures), Additional assist utilized for safety Assistive Device: Walker, rolling (bariatric) Transfer Exam: Stand to Sit Level of [place]: Maximum assist (25% patient's effort) Physical/Nonphysical Assist: [...] \ Standardized Assessments Standardized Assessments Standardized Assessments: [facility] 6-Clicks Mobility Assessment [facility] 6-Clicks Mobility Assessment Difficulty patient has [...] climbing 3-5 steps with a railing?: Unable [facility] 6-Clicks Mobility Assessment Total : 11 [...] PM EDT Occupational Therapy Re-Assessment Patient Name: Gonzlao Smalls Today's Date: 05/12/2025 OT Discharge Recommendations: [...] remission, Anxiety disorder, unspecified, Arthritis, Atrial fibrillation ([facility]), CAP (community acquired pneumonia) (05/19/2024), Cellulitis (05/19/2024), [...] session. Participants in Care Family/Caregiver Present: No Press Tool Maker: Not Applicable Presentation Oxygen Therapy: Supplemental oxygen [...] of Function Receives Help From: Spouse Mobility [place]: Independent gait with device ADL Performance: Needs [...] Mobility Bed Mobility Exam: Scooting/Bridging Level of [place]: Contact guard (scooting hips forward to edge of bed) Physical/Nonphysical Assist: Verbal Cues, Minimal cues Bed Mobility Exam: Supine to Sit Level of [place]: Minimum assist (75% patient's effort) Physical/Nonphysical Assist: HOB elevated, Verbal Cues Assistive Device: Overhead trapeze Bed Mobility Exam: Sit to Supine Level of [place]: Stand-by assist Physical/Nonphysical Assist: Verbal Cues, Minimal cues Assistive Device: Overhead trapeze Transfers Transfer Exam: Sit to stand Level of [place]: Maximum assist (25% patient's effort) (x3 reps from edge of bed, good adherence to NWB RLE) Physical/Nonphysical Assist: Verbal Cues, Nonverbal cues (demo/gestures), Additional assist utilized for safety Assistive Device: Walker, rolling (bariatric) Transfer Exam: Stand to Sit Level of [place]: Maximum assist (25% patient's effort) Physical/Nonphysical Assist: [...] upper extremity support, Left upper extremity support ([facility] RW) Static Standing-Level of Assistance: [...] x3 reps of sit to stand to [facility] RW with max Ax2 persons each time, [...] Where Assessed: Other (Comment) (in stance at [facility] RW level) Toileting Interventions: Pt with small [...] a helper. 5 Set-up or Clean-up Assistance [place] sets up or cleans up; patient completes activity. [place] assists only prior to or following the activity. 4 Supervision or touching assistance [place] provides verbal cues and/or touching/steadying and/or contact guard assistance as patient completes activity. Assistance may be provided throughout the activity or intermittently. 3 Partial/Moderate Assistance [place] does LESS THAN HALF the effort. [place] lifts, holds or supports trunk or limbs, but provides less than half the effort. 2 Substantial/Maximal Assistance [place] does MORE THAN HALF the effort. [place] lifts or holds trunkor limbs and provides more than half the effort. 1 Dependent [place] does ALL of the effort. Patient does [...] Note Gonzalo Smalls 49 y.o. male CSN: [id number] Admission: 04/27/2025 9:29 PM Primary Problem: Diabetic foot ulcer Anticipated Discharge Date: TBD RN CM informed by bedside RN that pt's weight was obtained and current weight is 244.3kg (538.5 lbs)- due to pt being over 500 [facility] [...] PM EDT Case Management Adult Progress Note Gonzlao Smalls 49 y.o. male CSN: [id number] Admission: 04/27/2025 9:29 PM Primary Problem: Diabetic foot ulcer Anticipated Discharge Date: TBD LOLA TOVAR f/ u with [facility] is stating that they might be able to accept the pt if under 500lbs. Team and bedside RN updated. Bedside RN will attempt to obtain pt's current weight. RN LA will continue to follow. Chayo Jennings RN * Progress Notes - Lynda Choudhury, OB/GYN NURSE - 05/11/2025 11:01 AM EDT Endocrine - [...] mellitus - type 2 -Home medications: CGM: [employer] G7 Insulin regimen: U500 insulin: prescription for [...] -Diabetes education: completed 05/10 -Follow-up plan: home senior managing director - Anette Kendall -Tentative discharge recommendations: -pt [...] at $35 per vial. Also discussed contacting [employer] directly for the financial assistance program. -patient with plans to discharge to [facility] once able - need to check with [facility] to see if they are okay with utilizing U500 insulin if patient is able to bring in his own supply Insulin regimen - would like patient to utilize U500 home dosing at [facility] Continue Dexcom G7 CGM Likely continue [...] via secure chat or page us at [phone] during 7a-7p, Thursday-Thursday. For after hours please [...] has been following with urology outpatient at [facility]. They have postulated this to be related to his diabetes and have had several voiding trials which have failed. Also has un dergone proctoscopy (?) which was normal. 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 and he [...] [facility] labs[facility]. Current condition is not [...] plan and management with patient. Selin Lee [employer] Site Analyst Division of Hospital Medicine [facility] * Care Plan - Haritha Lam Yehuda [...] has been following with urology outpatient at [facility]. They have postulated this to be related to his diabetes and have had several voiding trials which have failed. Also has un dergone proctoscopy (?) which was normal. 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 and he [...] [facility]. Current condition is not at [...] plan and management with patient. Selin Lee [employer] Site Analyst Division of Hospital Medicine [facility] * Progress Notes - Chayo Jennings RN - 05/10/2025 8:59 AM EDT Case Management Adult Progress Note Gonzalo Smalls 49 y.o. male CSN: [id number] Admission: 04/27/2025 9:29 PM Primary Problem: Diabetic foot ulcer Anticipated Discharge Date: TBD LOLA TOVAR f/u on [facility] referral and was told that [facility] physician declined pt's acceptance to [facility]. RN CMvisited with the pt this morning to discuss d/c plan. Pt is in agreement to be referred [facility]- referral to [facility] initiated on this day. Team aware. LOLA TOVAR will continue to follow and assist with d/c plan and as needed. Chayo Jennings RN * Progress Notes - Aileen Leonardo, OB/GYN NURSE - 05/10/2025 8:39 AM EDT Endocrine - [...] mellitus - type 2 -Home medications: CGM: [employer] G7 Insulin regimen: U500 insulin: prescription for [...] -Diabetes education: completed 05/10 -Follow-up plan: home senior managing director - Anette Kendall -Tentative discharge recommendations: -pt will need close monitoring by rehab facility provider as changes in diet and activity level maylead to changes in glycemic patterns and insulin requirement NOTE: -patient reports that once the new year hits, he worries about the cost of U500 insulin --> discussed cost through [employer] - should be able to get vials of U500 at $35 per vial. Also discussed contacting [employer] directly for the financial assistance program. -patient with plans to discharge to [facility] once able - need to check with [facility] to see if they are okay with utilizing U500 insulin if patient is able to bring in his own supply Insulin regimen - would like patient to utilize U500 home dosing at [facility] Continue Dexcom G7 CGM Likely continue [...] team via secure chat orpage us at [phone] during -7p, Thursday-Thursday. For after hours please [...] Intervention: Promote Wound Healing Flowsheets (Taken 05/10/2025 03) Sleep/Rest Enhancement: consistent schedule promoted natural light [...] sit <> stand transfers Visitors Present none Press Tool Maker (if applicable) N/a OBJECTIVE PAIN Pt endorses [...] Mobility Bed Mobility Exam: Scooting/Bridging Level of [place]: Stand-by assist Physical/Nonphysical Assist: Verbal Cues, Minimal cues Assistive Device: Overhead trapeze Bed Mobility Exam: Supine to Sit Level of [place]: Stand-by assist Physical/Nonphysical Assist: Verbal Cues, Minimal cues, HOB elevated Assistive Device: Overhead trapeze Bed Mobility Exam: Sit to Supine Level of [place]: Stand-by assist Physical/Nonphysical Assist: Verbal Cues, Minimal cues Assistive Device: Overhead trapeze Transfers Transfer Exam: Sit to stand Level of [place]: Maximum assist (25% patient's effort) Physical/Nonphysical Assist: Set-up required, Additional assist utilized for safety, Maximal cues, Verbal Cues, Nonverbal cues (demo/gestures) Assistive Device: Hand held assist Transfer Exam: Stand to Sit Level of [place]: Maximum assist (25% patient's effort) Physical/Nonphysical Assist: [...] session Participants in Care Family/Caregiver Present: No Press Tool Maker: Not Applicable Presentation Oxygen Therapy: Supplemental oxygen [...] sequencing Bed Mobility Exam: Scooting/Bridging Level of [place]: Stand-by assist Physical/Nonphysical Assist: Verbal Cues, Minimal cues Assistive Device: Overhead trapeze Bed Mobility Exam: Supine to Sit Level of [place]: Stand-by assist Physical/Nonphysical Assist: Verbal Cues, Minimal cues, HOB elevated Assistive Device: Overhead trapeze Bed Mobility Exam: Sit to Supine Level of [place]: Stand-by assist Physical/Nonphysical Assist: Verbal Cues, Minimal [...] placement, sequencing, weight shifting, appropriate use of ENRICHMENT TEACHER, and maintaining NWB on LLE. Tactile cues provided to assist in sequencing and weight shifting. Transfer Exam: Sit to stand Level of [place]: Maximum assist (25% patient's effort) Physical/Nonphysical Assist: Set-up required, Additional assist utilized for safety, Maximal cues, Verbal Cues, Nonverbal cues (demo/gestures) Assistive Device: Hand held assist Transfer Exam: Stand to Sit Level of [place]: Maximum assist (25% patient's effort) Physical/Nonphysical Assist: [...] assistance Static Standing - Interventions: Standing w ENRICHMENT TEACHER Therapeutic Activity (40 minutes) See bed mobility, balance, and transfers sections for more detail. Standardized Assessments [facility] 6-Clicks Mobility Assessment Difficulty patient has [...] climbing 3-5 steps with a railing?: Unable [facility] 6-Clicks Mobility Assessment Total : 13 [...] Note Gonzalo Smalls 49 y.o. male CSN: [id number] Room/Bed 117/117A Nutrition evaluation type: follow-up Reason [...] Weight Evaluation: Extreme Obesity (BMI > 40) [place] Body Weight (kg): 80.9 Percent [place] Body Weight: 311 Adjusted Body Weight (kg): [...] Regular Adult Carbohydrate Restriction: Consistent CHO 2 ([id number] Steven, 80 g/meal) Adult Sodium Restriction: 2,000 mg Na Percent Meals Eaten (%): 100% of meals Diet Experience and Nutrition History: Diet Education Provided: Will monitor Pertinent home medications: Albuterol, Bumex, Insulin, Metformin, Ozempic, Aldactone Anabaptist needs: Nutrition Focused Physical Exam: Physical exam [...] continue to assess need -Follow-up plan: home senior managing director - nAette Kendall -Tentative discharge recommendations: NOTE: -patient reports that once the new year hits, he worries about the cost of U500 insulin -patient with plans to discharge to [facility] once able - need to check with [facility] to see if they are okay with utilizing U500 insulin if patient is able to bring in his own supply Insulin regimen - would like patient to utilize U500 home dosing at [facility] Continue Dexcom G7 CGM Likely continue [...] via secure chat or page us at [phone] during 7a-7p, Thursday-Thursday. For after hours please [...] has been following with urology outpatient at [facility]. They have postulated this to be related to his diabetes and have had several voiding trials which have failed. Also has un dergone proctoscopy (?) which was normal. 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 and he [...] Ready for Discharge:Ready now, awaiting placement to [facility] Selin Lee [employer] Site Analyst Division of Hospital Medicine [facility] * Care Plan - Checo Monson - [...] Progressing * Progress Notes - Lynda Choudhury, OB/GYN NURSE - 05/08/2025 5:30 PM EDT Endocrine - [...] (H) 05/06/2025 I reviewed bg tracing in [facility] glucose timeline 05/08/25 ASSESSMENT Hospital Course: [...] continue to assess need -Follow-up plan: home senior managing director - Anette Kendall -Tentative discharge recommendations: NOTE: -patient reports that once the new year hits, he worries about the cost of U500 insulin -patient with plans to discharge to [facility] once able - need to check with [facility] to see if they are okay with utilizing U500 insulin if patient is able to bring in his own supply Insulin regimen - would like patient to utilize U500 home dosing at [facility] Continue Dexcom G7 CGM Likely continue [...] via secure chat or page us at [phone] during 7a-7p, Thursday-Thursday. For after hours please [...] Note Gonzalo Smalls 49 y.o. male CSN: [id number] Admission: 04/27/2025 9:29 PM Primary Problem: Diabetic [...] acute rehab. RNCM awaiting MD approval from [facility]. Liaison will reach out with answer. Will continue to follow. RNCM will continue to monitor for further discharge needs. Mayra Apodaca RN * Care Plan - Jeevan Shah RN - 05/08/2025 12:43 PM EDT Problem: Wound Goal: Optimal Wound Healing Outcome: Ongoing, Progressing Intervention: Promote Wound Healing Note: See recs, cont wound vac Patient evaluated by [facility] nurse, individualized recommendations placed and care [...] 05/08/2025 10:19 AM Wound Image Wound Assessment [place];Red (moist) Margins Well-defined edges [place]-Wound Assessment Intact [...] the video go to this web address: [email or web address] Or, scan this QR code with your smart phone ?? [facility] * Thi Chavarria, RN - 05/08/2025 10:55 AM EDT Images from the original note were not included. Type 2 diabetes: 7 Ways to Prevent Signals Collector/Analyst Complications - Video Watch this video to understand that having type 2 diabetes can lead to long-term complications if it is not managed correctly. To view the video go to this web address: [email or web address] Or, scan this QR code with your smart phone ?? [facility] * Thi Chavarria, RN - 05/08/2025 10:55 AM EDT Images from the original note were not included. Diabetes: Daily Foot Check - Video Watch this video to learn how diabetes affects the feet and how to do daily foot checks. To view the video go to this web address: [email or web address] Or, scan this QR code with your [...] to gently smooth the nail. Have a brisket puller trim your nails if you can't see [...] remove corns, calluses, or warts by yourself. Pyiu-bfj-iaeyinm products can burn or damage your skin. [...] your primary care doctor or by a brisket puller. This is a doctor who specializes in foot care. Some diabetes centers have regular foot clinics. Last Reviewed Date: 2024 00:00:00 ?? [id number] [employer]. All rights reserved. This information is not [...] the video go to this web address: [email or web address] Or, scan this QR code with your smart phone ?? [facility] * Consults - Beatriz Hu DO - 05/08/2025 8:38 AM EDTAssociated Order(s): Inpatient consult to Urology Inpatient consult to Urology Consult performed by: Beatriz Hu DO Consult ordered by: Diane Guzman MD [facility] Urology Consult Note 05/08/25 Service Requesting Consultation: Hospital Medicine CC: urinary retention HPI: Gonzalo Smalls is a 49 y.o. male with a past urologic history of urinary retention, recurrent UTIs,BPH, morbid obesity who presented to [facility] ED with diabetic foot ulcer. On 12/21/2024 [...] states. After this he presented to an [facility] urologist Dr. Painting who stated to patient [...] (NEURONTIN) 600 mg, 3 times daily HYDROcodone-acetaminophen ([place]) 10-325 MG tablet 1 tablet, Every 6 hours PRN Insulin Pen Needle (Pen [place]) 31G X 5 MM mis USE TO [...] obesity and uncontrolled diabetes who presented to [facility] ED with diabetic foot ulcer. On 12/21/2024 [...] states. After this he presented to an [facility] urologist Dr. Painting who stated to patient [...] established care with a Dr. Mendenhall an [facility] urologist as this is closer to home [...] established care with a Dr. Abdirashid bob [facility] urologist as this is closer to home [...] has been following with urology outpatient at [facility]. They have postulated this to be related to his diabetes and have had several voiding trials which have failed. Also has un dergone proctoscopy (?) which was normal. 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 and he [...] Mobility Bed Mobility Exam: Scooting/Bridging Level of [place]: Stand-by assist Physical/Nonphysical Assist: Verbal Cues Bed Mobility Exam: Supine to Sit Level of [place]: Contact guard Physical/Nonphysical Assist: Set-up required, Verbal Cues, Minimal cues Bed Mobility Exam: Sit to Supine Level of [place]: Minimum assist (75% patient's effort) Physical/Nonphysical Assist: Set-up required, Verbal Cues, Minimal cues Transfers Transfer Exam: Sit to stand Level of [place]: (Pt attempted with use of bariatric RW; [...] return to supine. Therapeutic Exercise Access Code: [email or web address] HEP printed and pt received copy with [...] provided based on observable deficits.* Level of [place] Interventions Grooming Patient demo's adequate BUE strength/ROM [...] maintain WB status. FUNCTIONAL MOBILITY Level of [place] Physical/Non-physical Assist Adaptive Equipment Utilized Scooting/ Bridging [...] Appearance Posture: Within Functional Limits Level of [place] Balance Support Static Sit Standby assist Feet supported Dynamic Sit Standby assisst Feet supported THERAPEUTIC EXERCISE INTERVENTIONS (10 minutes) Treatment Details The patient was educated re: implementation of BUE HEP in order to target muscle groups necessary for functional mobility and ADL independence. HEP printed and each exercise reviewed, pt verbalized understanding. [employer] Access Details (if appropriate) Access Code: [email or web address] URL: [email or web address] Date: 05/07/25 Exercises Included - Seated Elbow [...] has been following with urology outpatient at [facility]. They have postulated this to be related to his diabetes and have had several voiding trials which have failed. Also has un dergone proctoscopy (?) which was normal. 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 and he [...] now * Progress Notes - Aileen Leonardo, OB/GYN NURSE - 05/07/2025 7:33 AM EDT Endocrine - [...] insulin regimen -assisted patient with downloading dexcom [employer] pooja on new phone. Dicussed calibrating dexcom [...] (H) 05/06/2025 I reviewed bg tracing in [facility] glucose timeline 05/07/25 ASSESSMENT Hospital Course: [...] continue to assess need -Follow-up plan: home senior managing director - Anette Kendall -Tentative discharge recommendations: NOTE: -patient reports that once the new year hits, he worries about the cost of U500 insulin -patient with plans to discharge to [facility] once able - need to check with [facility] to see if they are okay with utilizing U500 insulin if patient is able to bring in his own supply Insulin regimen - would like patient to utilize U500 home dosing at [facility] Continue Dexcom G7 CGM Likely continue [...] team via secure chat orpage us at [phone] during 7a-7p, Thursday-Thursday. For after hours please [...] has been following with urology outpatient at [facility]. They have postulated this to be related to his diabetes and have had several voiding trials which have failed. Also has un dergone proctoscopy (?) which was normal. 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 and he [...] now * Progress Notes - Aileen Leonardo, OB/GYN NURSE - 05/06/2025 7:46 AM EDT Endocrine - Diabetes Consult follow-up: Subjective: 24 hour update: -patient discharging to [facility] around Thursday or Thursday - need to check with [facility] to see if they are okay [...] continue to assess need -Follow-up plan: home senior managing director - Anette Kendall -Tentative discharge recommendations: -patient discharging to [facility] around Thursday or Thursday - need to check with [facility] to see if they are okay [...] team via secure chat orpage us at [phone] during 7a-7p, Thursday-Thursday. For after hours please [...] is in abx, has his CHG and [place] wipes done in this shift Problem: Mobility [...] vascular surgery; wound vac applied 05/03 by [facility] Wound Assessment: Wound 05/01/25 Surgical Toe (Comment which one) Anterior;Right (Active) Date First Assessed/Time First Assessed: 05/01/25 0805 Present on Original Admission: No Hand Hygiene Completed: Yes Primary Wound Type: Surgical Location: Toe (Comment which one) Wound Location Orientation: Anterior;Right Assessments 05/05/2025 11:44 AM Wound Image Wound Assessment [place];Red (moist , full thickness) Margins Well-defined edges [...] no orders noted for wound vac, maessaged [facility] team for guidance. Orders placedfor [...] wound vac in use Patient evaluated by [facility] nurse, individualized recommendations placed and care plan interventions updated; see wound care note for details regarding recommendations to support optimal wound healing. * Progress Notes - Mayra Apodaca RN - 05/05/2025 12:30 PM EDT Case Management Adult Progress Note Gonzalo Smalls 49 y.o. male CSN: [id number] Admission: 04/27/2025 9:29 PM Primary Problem: Diabetic [...] No MDRO isolated 04/27/25 Blood culture [facility]D [facility] Culture Data: - 04/25/25: Blood culture [...] pathology. Patient is planned to discharge to [facility]. Recommend close follow-up with vascular surgery and [...] PA-C Division of Infectious Diseases Available by [employer] Surgical History, assessment, and plan discussed with ID [...] (H) 05/03/2025 I reviewed bg tracing in [facility] glucose timeline 05/05/25 ASSESSMENT Hospital Course: [...] mellitus - type 2 -Home medications: CGM: [employer] G7 Insulin regimen: U500 insulin: prescription for [...] via secure chat or page us at [phone] during 7a-7p, Thursday-Thursday. For after hours please [...] precautions. Bed Mobility Exam: Rolling/Turning Level of [place]: Contact guard Physical/Nonphysical Assist: Verbal Cues, Moderate cues Bed Mobility Exam: Scooting/Bridging Level of [place]: Stand-by assist Bed Mobility Exam: Supine to Sit Level of [place]: Contact guard Physical/Nonphysical Assist: Verbal Cues Bed Mobility Exam: Sit to Supine Level of [place]: Stand-by assist Patient performed rolling bilaterally for placement of lift pad. Transfers Transfer Exam: Sit to stand Level of [place]: (Patient unable to perform without engaging right [...] promote tempo and full ROM. Standardized Assessments [facility] 6-Clicks Mobility Assessment Difficulty patient has [...] climbing 3-5 steps with a railing?: Unable [facility] 6-Clicks Mobility Assessment Total : 12 [...] help from Spouse Level of Mobility Mobility [place] History of Falls ADL Performance Needs assistance [...] to therapy this date. Visitors Present No Press Tool Maker (if applicable) OBJECTIVE PAIN Pain Score (0-10): [...] sba for bed mobility tasks. Level of [place] Adaptive Equipment Utilized Comments Feeding Grooming Setup washing face/hands Bathing Upper Body Dressing Lower Body Dressing Shoe Level of Assistance: Dependent Toileting IADLs Health Management Community Re-Entry BALANCE Postural Appearance INTERVENTIONS Level of [place] Balance Support Comments Static Sit Standby assist [...] weight shifting to promote safety. Level of [place] Physical/Non-physical Assist Adaptive Equipment Utilized Rolling/ Turning [...] No MDRO isolated 04/27/25 Blood culture [facility] Culture Data: - 04/25/25: Blood culture [...] PA-C Division of Infectious Diseases Available by [employer] Chat History, assessment, and plan discussed with [...] mL IVPB (vial adapter required) 2 g [id number] [place], Diane E, MD 36.7 mL/hr at 05/03/25 [...] Subcutaneous TID with meals Martinez, Sarah P, OB/GYN NURSE 30 Units at 05/03/251810 Insulin Lispro (Admelog, HumaLOG) 100 UNIT/ML injection 8 Units 8 Units Subcutaneous BID PRN Martinez,Sarah P, OB/GYN NURSE insulin NPH (Isophane) (HumuLIN N,NovoLIN N) injection 50 Units 50 Units Subcutaneous BID Martinez, Sarah P, OB/GYN NURSE 50 Units at 05/03/252043 ipratropium-albuterol (Duo-Neb) 0.5-2.5 [...] syndrome * Progress Notes - Aileen Leonardo, OB/GYN NURSE - 05/04/2025 8:37 AM EDT Endocrine - [...] (H) 05/02/2025 I reviewed bg tracing in [facility] glucose timeline 05/04/25 ASSESSMENT Hospital Course: [...] continue to assess need -Follow-up plan: home senior managing director - Anette Kendall -Tentative discharge recommendations: Insulin [...] team via secure chat orpage us at [phone] during 7a-7p, Thursday-Thursday. For after hours please [...] Mobility Impairment Goal: Optimal Mobility 05/03/20251841 by Kyele Gonzalez RN Outcome: Ongoing, Progressing 05/03/20251841 by [...] Ongoing, Progressing * Progress Notes - Leidy Vealsco MD - 05/03/2025 12:25 PM EDT Images from the original note were not included. [facility] Department of Surgery Division of [...] an 49 y.o. male [facility] with diabetic foot ulcer [...] Note Gonzalo Smalls 49 y.o. male CSN: [id number] Admission: 04/27/2025 9:29 PM Primary Problem: Diabetic [...] No MDRO isolated 04/27/25 Blood culture [facility] Culture Data: - 04/25/25: Blood culture [...] PA-C Division of Infectious Diseases Available by [employer] Surgical History, assessment, and plan discussed with ID [...] 5 mg 5 mg Oral BID Marjorie Myesr MD 5 mg at 05/03/25922 bumetanide (Bumex) [...] Units Subcutaneous TID with meals Sarah Martinez, OB/GYN NURSE 30 Units at 05/03/25 0920 Insulin Lispro (Admelog, HumaLOG) 100 UNIT/ML injection 6 Units 6 Units Subcutaneous BID PRN Sarah Martinez P, OB/GYN NURSE insulin NPH (Isophane) (HumuLIN N,NovoLIN N) injection 42 Units 42 Units Subcutaneous BID Sarah Martinez, OB/GYN NURSE 42 Units at 05/03/25 0919 ipratropium-albuterol (Duo-Neb) [...] 10 mL 10 mL Intravenous PRN Marjorie Myres MD spironolactone (Aldactone) tablet 100 mg 100 [...] continue to assess need -Follow-up plan: home senior managing director - Anette Kendall -Tentative discharge recommendations: Insulin [...] via secure chat or page us at [phone] during 7a-7p, Thursday-Thursday. For after hours please [...] from the original note were not included. [facility] Department of Surgery Division of [...] degrees Note: See recs Patient evaluated by [facility] nurse, individualized recommendations placed and care [...] No MDRO isolated 04/27/25 Blood culture [facility] Culture Data: - 04/25/25: Blood culture [...] PA-C Division of Infectious Diseases Available by [employer] Surgical History, assessment, and plan discussed with ID [...] Note Gonzalo Smalls 49 y.o. male CSN: [id number] Room/Bed 117/117A Nutrition evaluation type: assessment Reason [...] at bedside. 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 No known unintentional weight changes, UBW 570#. No chewing or swallowing difficulties. No N/V/D. Reports being constipated - finally had a BM today after 6 days though notes he feels he still needs to go. Agreeable to Kyree to aid in woundhealing. Vitals and Basic Assessment: BP: 132/75 Temp: 36.8 ??C (98.2 ??F) Oxygen Therapy: Supplemental oxygen O2 Delivery Method: Nasal cannula [place] Coma Scale Score: 15 Miguel Ángel [...] Weight Evaluation: Extreme Obesity (BMI > 40) [place] Body Weight (kg): 80.9 Percent [place] Body Weight: 311 Adjusted Body Weight (kg): [...] Regular Adult Carbohydrate Restriction: Consistent CHO 1 (9489-4327 Steven, 65 g/meal) Adult Sodium Restriction: 2,000 mg Na Percent Meals Eaten (%): 68% avg x 5 meals Diet Experience and Nutrition History: Diet Education Provided: Will monitor Pertinent home medications: Albuterol, Bumex, Insulin, Metformin, Ozempic, Aldactone Anabaptist needs: Nutrition Focused Physical Exam: Physical exam [...] from the original note were not included. [facility] Department of Surgery Division of [...] snacking overnight while watching the games including [email or web address], goldfish, ritz crackers and other snacks -no [...] treatment -plan and management discussed with patient, coding educator, bedside RN NOTE: -Patient utilizes U500 insulin pen at home. With the U500 pen, a conversion is not needed. Typically patient's required a 70% reduction in home U500 dosing. 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: home senior managing director - Anette Kendall -Tentative discharge recommendations: Insulin [...] via secure chat or page us at [phone] during -7p, Thursday-Thursday. For after hours please [...] consulted and rec amputation vs transfer to [facility] for podiatry input about foot salvage : cannot transfer to [facility] given weight limit, pod team cannot [...] Note Gonzalo Smalls 49 y.o. male CSN: [id number] Admission: 04/27/2025 9:29 PM Primary Problem: Diabetic [...] from the original note were not included. [facility] Department of Surgery Division of [...] nursing staff. I have notified senior resident/attending obiee obia solution architect with any issues or concerns. Leidy Velasco [...] bony pathology, duration TBD - Will contact [facility] tomorrow to check on urine culture [...] PA-C Division of Infectious Diseases Available by [employer] Surgical History, assessment, and plan discussed with ID attending, Dr. Chintan Doran The following complex inpatient infectious disease services were performed today: Complex antimicrobial therapy counseling and treatment [1] Current Facility-Administered Medications Medication Dose Route Frequency Provider Last Rate Last Admin [Transfer Hold] acetaminophen (Tylenol) tablet 1,000 mg 1,000 mg Oral q6h PRN Gnosticism, k A, OB/GYN NURSE,DNP 1,000 mg at 04/30/25 0328 [Transfer Hold] [...] mg Oral Daily before breakfast Sy De L aFuente APRN, DNP 40 mg at 04/30/25 08 [...] mcg/mL infusion Intravenous PRN Muzic, Og A, BALANCE AND HAIRSPRING ASSEMBLER 8 mcg at 05/01/25 0841 fentaNYL (Sublimaze) injection Intravenous PRN Muzic, Og A, BALANCE AND HAIRSPRING ASSEMBLER 25 mcg at 05/01/25 0826 lactated Ringer's infusion Intravenous Continuous PRN Muzic, Og A, BALANCE AND HAIRSPRING ASSEMBLER New Bag at 05/01/25 0728 midazolam (Versed) injection Intravenous PRN Muzic, Og A, BALANCE AND HAIRSPRING ASSEMBLER 1 mg at 05/01/25 0757 [2] Allergies Allergen Reactions Vancomycin Other - please document in the comment field Red man syndrome * Progress Notes - Aileen Lenoardo APRN - 05/01/2025 8:43 AM EDT Endocrine [...] (H) 04/29/2025 I reviewed bg tracing in [facility] glucose timeline 05/01/25 ASSESSMENT Hospital Course: [...] continue to assess need -Follow-up plan: home senior managing director - Anette Kendall -Tentative discharge recommendations: Insulin [...] team via secure chat orpage us at [phone] during 7a-7p, Thursday-Thursday. For after hours please [...] AM EDT Operative Note Date: 05/01/25 Location: [place] Name: Gonzalo Smalls, : 1975, Diagnoses: Pre-op Diagnosis Other chronic osteomyelitis of right foot (CMS/HCC) Post-op Diagnosis Other chronic osteomyelitis of right foot (CMS/HCC) Procedure(s): Right 5th toe ray amputation Attending Surgeon(s): * Mary Vicente - Primary Press Box Custodian(s): * Paula Martinez MD - Resident - [...] the wound bed. This extended more than detention to the heel laterally. The underlying skin [...] the patient's chart. - NPO since midnight Leiyd Velasco MD General Surgery Resident * Care [...] consulted and rec amputation vs transfer to [facility] for podiatry input about foot salvage : cannot transfer to [facility] given weight limit, pod team cannot [...] kg/m?? Labs and medications reviewed. Blood glucose [id number] Medications: Current Scheduled Medications[1] Current Continuous Medications[2] [...] continue to assess need -Follow-up plan: home senior managing director - Anette Kendall -Tentative discharge recommendations: Insulin [...] PGY-4 Division of Endocrinology, Diabetes and Metabolism [facility] Medically Ready for Discharge: [1] atorvastatin, 40 [...] from the original note were not included. [facility] Department of Surgery Division of [...] He is unable to be transferred to [facility] for Podiatry due to weight Edited [...] kg/m?? Labs and medications reviewed. Blood glucose [id number] Medications: Current Scheduled Medications[1] Current Continuous [...] continue to assess need -Follow-up plan: home senior managing director - Anette Kendall -Tentative discharge recommendations: Insulin [...] PGY-4 Division of Endocrinology, Diabetes and Metabolism [facility] Diabetes [facility] [1] atorvastatin, 40 mg, Oral, Nightly bisoprolol, [...] rec amputation but we can transfer to [facility] for pod input about the surgery for the DM wound Vas team do not feel a debridement would sufficiently treat his wound. Reached out to APT team and plan to transfer him to [facility] Review of Systems Pain in right [...] consulted and rec amputation vs transfer to [facility] for podiatry input about foot salvage [...] continue to assess need -Follow-up plan: home senior managing director - Anette Kendall -Tentative discharge recommendations: Insulin [...] Adult Inpatient Diabetes team via secure chat [employer] us at [phone] during 7a-7p, Thursday-Thursday. For after hours please [...] Note Gonzalo Smalls 49 y.o. male CSN: [id number] Admission: 04/27/2025 9:29 PM Primary Problem: Diabetic foot ulcer Lining Strap Closer reviewed chart and spoke with patient at bedside to complete this Initial Case Management Assessment. PCP: Malcolm Hayward APRN Emergency Contact: Extended Emergency Contact Information Primary Emergency Contact: Maggie Smalls Mobile Relation: Spouse Preferred language: Faroese Press Tool Maker needed? No Insurance: Primary Visit Coverage Payer Plan Sponsor Code Group Number Group Name THIAGO SOTOMAYOR[facility] [id number] [employer] Primary Visit Coverage Subscriber Subscriber ID Subscriber Name Subscriber SSN Subscriber Address [id number] GONZALO SMALLS [id number] [address] [id number] Secondary Visit Coverage Payer Plan Sponsor Code Group Number Group Name MEDICARE MEDICARE A & B Secondary Visit Coverage Subscriber Subscriber ID Subscriber Name Subscriber SSN Subscriber Address [id number] GONZALO SMALLS [id number] [address] [id number] Patient information: Primary Caregiver: Self Support System: Immediate family Daily Living Activities: Functional Status: Minimum assistance Living Arrangements: Spouse/Significant other, Children (daughter) Type of Residence: Private residence, Single Level (3 [address]) [address] [address] Smoker in the Home?: No Current DME: [...] line dressing changes Living Will/Advance Directive/Power of Flight Control Manager /Guardian: None Additional Comments: Patient admitted for [...] from the original note were not included. [facility] Department of Surgery Division of [...] night, recurrent UTIs who presented to [facility] on 04/27/2025 with right foot wound. [...] Social Connections: Unknown (04/24/2023) Received from [facility] Family and Community Support Help with Day-to-Day [...] History Administered Date(s) Administered Moderna COVID-19 Vaccine (Synthetic Filament Extruder) 12+ years 01/25/2021, 02/22/2021 Pneumococcal Conjugate PCV [...] a day. 09/05/21 Yes Provider, Historical HYDROcodone-acetaminophen ([place]) 10-325 MG tablet Take 1 tablet by [...] Yes Provider, Historical Insulin Pen Needle (Pen [place]) 31G X 5 MM misc USE TO [...] by mouth 3 times a day. HYDROcodone-acetaminophen ([place]) 10-325 MG tablet Take 1 tablet by [...] by mouth daily. Insulin Pen Needle (Pen [place]) 31G X 5 MM [facility] USE TO INJECT INSULIN 3 TIMES PER [...] [X] Family [ ] Friend [ ] Press Tool Maker [X] Medical records HISTORY OF PRESENT ILLNESS: [...] and was treated in theemergency department at [facility] a few days ago where a [...] in the ED 2-3 days ago at [facility]. I contacted OSH who report blood [...] a day. 09/05/21 Yes Provider, Historical HYDROcodone-acetaminophen ([place]) 10-325 MG tablet Take 1 tablet by [...] Yes Provider, Historical Insulin Pen Needle (Pen [place]) 31G X 5 MM misc USE TO [...] Will follow-up blood and urine cultures from [facility] for further ID/susceptibilities, obtained 04/25 - Please obtain adult ID screening labs: Hep A IgG, Hep B sAb, Hep B sAg, and Hep B total core Ab - Plan of care and recommendations discussed with patient's primary provider Thank you for allowing us to participate in this patient's care. ID will follow. Janelle Phan PA-C Division of Infectious Diseases Available by [employer] Surgical History, assessment, and plan discussed with ID [...] by mouth 3 times a day. HYDROcodone-acetaminophen ([place]) 10-325 MG tablet Take 1 tablet by [...] by mouth daily. Insulin Pen Needle (Pen [place]) 31G X 5 MM misc USE TO [...] 4:05 PM EDT Associated attestation - Bailey Cueav MD - 04/28/2025 4:05 PM EDT The [...] back pain 04/22/2019 Hypertension 02/18/2019 Morbid obesity ([facility]/HCC) 12/24/2016 Procedures Past Medical History Patient has a past medical history of Acute kidney injury (05/19/2024), Alcohol abuse, in remission, Anxiety disorder, unspecified, Arthritis, Atrial fibrillation ([facility]), CAP (community acquired pneumonia) (05/19/2024), Cellulitis (05/19/2024), [...] in Care Family/Caregiver Present: Yes Family/Caregiver: Spouse Press Tool Maker: Not Applicable Presentation Oxygen Therapy: None (Room [...] Needs assist Patient/Family Goals Return home at [facility]. Objective Pain Pt reports 7/10 [...] pain. Bed Mobility Exam: Rolling/Turning Level of [place]: Maximum assist (25% patient effort) Physical/Nonphysical Assist: Verbal Cues, Moderate cues Assistive Device: Bed rails, Other (ENRICHMENT TEACHER) Bed Mobility Exam: Scooting/Bridging Level of [place]: Maximum assist (25% patient's effort) (up in bed; Lester forward at EOB) Physical/Nonphysical Assist: Verbal Cues, Moderate cues Assistive Device: Bed rails Bed Mobility Exam: Supine to Sit Level of [place]: Maximum assist (25% patient's effort) Physical/Nonphysical Assist: Verbal Cues, Moderate cues, Set-up required, Additional assist utilized for safety Assistive Device: Other (ENRICHMENT TEACHER) Bed Mobility Exam: Sit to Supine Level of [place]: Maximum assist (25% patient's effort) Physical/Nonphysical Assist: [...] climbing 3-5 steps with a railing?: Unable [facility] 6-Clicks Mobility Assessment Total : 8 [...] remission, Anxiety disorder, unspecified, Arthritis, Atrial fibrillation ([facility]), CAP (community acquired pneumonia) (05/19/2024), Cellulitis (05/19/2024), [...] CARE Subjective Pt reports Visitors Present Spouse Press Tool Maker (if applicable) PRESENTATION Oxygen Room Air Telemetry [...] help from Spouse Level of Mobility Mobility [place] History of Falls ADL Performance ADL Performance: [...] Mobility Bed Mobility Exam: Rolling/Turning Level of [place]: Maximum assist (25% patient effort) Physical/Nonphysical Assist: Verbal Cues, Moderate cues Assistive Device: Bed rails, Other (ENRICHMENT TEACHER) Bed Mobility Exam: Scooting/Bridging Level of [place]: Maximum assist (25% patient's effort) (up in bed; Lester forward at EOB) Physical/Nonphysical Assist: Verbal Cues, Moderate cues Assistive Device: Bed rails Bed Mobility Exam: Supine to Sit Level of [place]: Maximum assist (25% patient's effort) Physical/Nonphysical Assist: Verbal Cues, Moderate cues, Set-up required, Additional assist utilized for safety Assistive Device: Other (ENRICHMENT TEACHER) Bed Mobility Exam: Sit to Supine Level of [place]: Maximum assist (25% patient's effort) Physical/Nonphysical Assist: [...] POC an d discharge recommendations. STANDARDIZED ASSESSMENTS [facility] 6-Click Daily Activities Help from Other: Don/Doff Regular Lower Body Clothings: A lot Help From Other: Bathing: A lot Help From Other: Toileting: A lot Help From Other: Don/Doff Upper Body Clothings: None Help From Other: Grooming: None Help From Other: Eating Meals: None [facility] 6 Click - Daily Activities Score: [...] Lunch: leftovers/baked oatmeal Dinner: take out/cooking - [facility], cracker barrel Snacks: peanut butter crackers, cheese [...] remission, Anxiety disorder, unspecified, Arthritis, Atrial fibrillation ([facility]/HCC), CAP (community acquired pneumonia) (05/19/2024), Cellulitis [...] continue to assess need -Follow-up plan: home senior managing director - Anette Kendall -Tentative discharge recommendations: Insulin [...] team via secure chat orpage us at [phone] during 7a-7p, Thursday-Thursday. For after hours please [...] injection 30 Units 30 Units Subcutaneous BID iAleen Leonardo APRN ipratropium-albuterol (Duo-Neb) 0.5-2.5 mg/3 mL [...] capsule 150 mg 150 mg Oral Daily GnosticismSy APRN, DNP 150 mgat 04/28/25 0848 Current [...] by mouth 3 times a day. HYDROcodone-acetaminophen ([place]) 10-325 MG tablet Take 1 tablet by [...] by mouth daily. Insulin Pen Needle (Pen [place]) 31G X 5 MM [facility] USE TO INJECT INSULIN 3 TIMES PER [...] 04/28/2025 6:09 AM EDTAssociated Order(s): Consult to [facility] Images from the original note were not included. Consult to [facility] Consult performed by: Sy De La [...] times a day. 09/05/21 Provider, Historical HYDROcodone-acetaminophen ([place]) 10-325 MG tablet Take 1 tablet by mouth every 6 hours as needed. Provider, Historical insulin NPH-insulin regular (NovoLIN 70/30 FlexPen) (70-30) 100 UNIT/ML injection pen Inject 90 Units under the skin 3 times a day before meals. FURTHER REFILLS WILL BE PROVIDED UPON ATTENDANCE OF NEXT OFFICE VISIT 03/29/25 02/22/25 Divine Archer APRN Insulin Pen Needle (Pen [place]) 31G X 5 MM misc USE TO [...] Value Units Date/Time Blood Culture (Aerobic/Anaerobet Set) [[id number]] Collected: 04/27/252215 Order Status: Completed Specimen: Blood, Venous Updated: 04/28/25111 Culture Culture in lab Blood Culture (Aerobic/Anaerobet Set) [[id number]] Collected: 04/27/252215 Order Status: Completed Specimen: Blood, [...] [5] * ED Provider Notes - Jessa aLw MD - 04/27/2025 7:16 PM EDT Images [...] warmth, chills, vomiting. History provided by: Patient spanish interpreter/translator used: No I agree with the above [...] ???kidney infection?? where he was admitted at [facility]. Patient denies any shortness of breath, [...] records from his previous hospital visit at [facility] which showed he was being treated [...] Ordered Status Ordering Provider 04/28/25541 Consult to [facility] Once Specialty: Internal Medicine Provider: (Not [...] of Pseudomonas coverage. I spoke with the chief clerk to tryto get records from [facility] to see why he was being treated with ertapenem for UTIs. [SH] 0625 Magnesium(!) Repleted [SH] 0626 CT Foot Right w IV Contrast osteo [SH] Shefali May 07, 2025 1045 XR Foot Right 3+ Views [DL] ED Course User Index [DL] Jessa Law MD [SH] Suman Natarajan DO Clinical Impressions [...] Description 08/03/2025 2:00 PM EST [facility] Visit [facility] [address] [place] [address] Mary Vicente MD [address] [place] [address] Scheduled Orders Name Type Priority Associated Diagnoses [...] glucose meter (05/18/2025 8:09 AM EST) Pathologist [facility] POCT Glucose 124(H) 74 - 99 mg/dL 05/18/2025 8:11 AM EST [facility] Comment:Accuracy of a glucos e result [...] for testing. Comment 05/18/2025 8:11 AM EST [facility] Sliver Chopper ID Char Hinojosa 05/18/2025 8:11 AM EST [facility] Device ID [id number] 05/18/2025 8:11 AM EST [facility] Specimen Type POC Capillary 05/18/2025 8:11 AM EST [facility] Blood Capillary blood specimen / Unknown 05/18/2025 8:09 AM EST 05/18/2025 8:11 AM EST Umar R Jay Jay DO LAB POINT OF CARE TE ST DOCKED DEVICE UNSOLICITED RESULTS Final Result [facility] [address] [place] [address] * (ABNORMAL) POCT glucose meter (05/17/2025 7:54 PM EST) Pathologist [facility] POCT Glucose 216(H) 74 - 99 mg/dL 05/17/2025 7:55 PM EST [facility] Comment:Accuracy of a glucos e result [...] 05/17/2025 7:55 PM EST [facility] Sliver Chopper ID Ron Lal 7:55 PM EST [facility] Device ID [id number] 05/17/2025 7:55 PM EST [facility] Specimen Type POC Capillary 05/17/2025 7:55 PM EST [facility] Blood Capillary blood specimen / Unknown 05/17/2025 7:54 PM EST 05/17/2025 7:55 PM EST Wily Goyal DO LAB POINT OF CARE TE ST DOCKED DEVICE UNSOLICITED RESULTS Final Result Performing Organization Address City/[facility]/ZIP Co de Phone Number [facility] [address] [place] [address] * (ABNORMAL) POCT glucose meter (05/17/2025 5:13 PM EST) [facility] POCT Glucose 186(H) 74 - 99 [...] 05/17/2025 5:14 PM EST [facility] Sliver Chopper ID Char Hinojosa 05/17/2025 5:14 PM EST [facility] Device ID [id number] 05/17/2025 5:14 PM EST [facility] Specimen Type POC Capillary 05/17/2025 5:14 PM EST [facility] Blood Capillary blood specimen / Unknown 05/17/2025 5:13 PM EST 05/17/2025 5:14 PM EST Kazar R Jay Jay DO LAB POINT OF CARE TE ST DOCKED DEVICE UNSOLICITED RESULTS Final Result [facility] [address] [place] [address] * (ABNORMAL) POCT glucose meter (05/17/2025 1:01 PM EST) Pathologist [facility] POCT Glucose 191(H) 74 - 99 mg/dL [...] 05/31/2025 3:12 PM EST [facility] Sliver Chopper ID Char Hinojosa 05/31/2025 3:12 PM EST [facility] Device ID [id number] 05/31/2025 3:12 PM EST [facility] Specimen Type POC Capillary 05/31/2025 3:12 PM EST [facility] Blood Capillary blood specimen / Unknown 05/17/2025 1:01 PM EST 05/31/2025 3:12 PM EST us Wily Goyal DO LAB POINT OF CARE TE ST DOCKED DEVICE UNSOLICITED RESULTS Final Result [facility] [address] [place] [address] * ECHO, ADULT TRANSTHORACIC COMPLETE W/ CONTRAST (05/17/2025 9:51 AM EST) Pathologist [facility] BSA 3.30 m2 HANK ISCV Height 182.9 [...] Ao Diam 37 mm HANK ISCV PA OH(ACCEL) 24.6 mmHg HANK ISCV LV mean PG [...] is no recent study available for direct [id number] comparison. Left Ventricle The left ventricle is [...] is no recent study available for direct [id number] comparison. Wily Goyal DO CV ECHO PROCEDURES Final Result * (ABNORMAL) POCT glucose meter (05/17/2025 8:52 AM EST) POCT Glucose 225(H) 74 - 99 mg/dL 05/31/2025 3:12 PM EST [facility] Comment:Accuracy of a glucos e result [...] for testing. Comment 05/31/2025 3:12 PM EST [facility] Sliver Chopper ID Char Hinojosa 05/31/2025 3:12 PM EST [facility] Device ID [id number] 05/31/2025 3:12 PM EST [facility] Specimen Type POC Capillary 05/31/2025 3:12 PM EST [facility] Blood Capillary blood specimen / Unknown 05/17/2025 8:52 AM EST 05/31/2025 3:12 PM EST [facility] LAB POINT OF CARE TE ST DOCKED DEVICE UNSOLICITED RESULTS Final Result [facility] [address] [place] [address] * (ABNORMAL) POCT glucose meter (05/16/2025 9:28 [...] 05/31/2025 3:12 PM EST [facility] Sliver Chopper ID Jamal Soriano 3:12 PM EST [facility] Device ID [id number] 05/31/2025 3:12 PM EST [facility] Specimen Type POC Capillary 05/31/2025 3:12 PM EST [facility] Blood Capillary blood specimen / Unknown 05/16/2025 9:28 PM EST 05/31/2025 3:12 PM EST [facility] LAB POINT OF CARE TE ST DOCKED DEVICE UNSOLICITED RESULTS Final Result Performing Organization Address City/State/[facility] Co de Phone Number [facility] [address] [place] [address] * (ABNORMAL) POCT glucose meter (05/16/2025 5:37 PM EST) [facility] Signature POCT Glucose 283(H) 74 - [...] 05/16/2025 5:39 PM EST [facility] Sliver Chopper ID Char Hinojosa 05/16/2025 5:39 PM EST [facility] Device ID [id number] 05/16/2025 5:39 PM EST [facility] Specimen Type POC Capillary 05/16/2025 5:39 PM EST [facility] Blood Capillary blood specimen / Unknown 05/16/2025 5:37 PM EST 05/16/2025 5:39 PM EST Umar R Jay Jay DO LAB POINT OF CARE TE ST DOCKED DEVICE UNSOLICITED RESULTS Final Result [facility] [address] [place] [address] * ECG Adult (05/16/2025 3:33 PM EST) EKG DIAGNOSIS CLASS Abnormal MUSE ECG Ventricular Rate 58 BPM MUSE ECG Atrial Rate 58 BPM MUSE ECG OH Interval 184 ms MUSE ECG QRSD Interval 158 ms MUSE ECG QT Interval 496 ms MUSE ECG QTC Interval 486 ms MUSE ECG P [place] 30 degrees MUSE ECG R [place] -35 degrees MUSE ECG T Wave [place] -5 degrees MUSE ECG Diagnosis Sinus bradycardia [...] 3:33 PM EST 05/18/2025 12:15 AM EST Wily Goyal DO ECG ORDERABLES Final Result Performing Organization Address [facility] Co de Phone Number MUSE ECG * (ABNORMAL) POCT glucose meter (05/16/2025 12:06 PM EST) Pathologist [facility] POCT Glucose 161(H) 74 - 99 mg/dL 05/16/2025 12:07 PM EST [facility] Comment:Accuracy of a glucos e result [...] 05/16/2025 12:07 PM EST [facility] Sliver Chopper ID Char Hinojosa 05/16/2025 12:07 PM EST [facility] Device ID [id number] 05/16/2025 12:07 PM EST [facility] Specimen Type POC Capillary 05/16/2025 12:07 PM EST [facility] Blood Capillary blood specimen / Unknown 05/16/2025 12:06 PM EST 05/16/2025 12:07 PM EST us Selin Lee MD LAB POINT OF CARE TE ST DOCKED DEVICE UNSOLICITED RESULTS Final Result Performing Organization Address City/[facility]/ZIP Co de Phone Number [facility] [address] [place] [address] * (ABNORMAL) POCT glucose meter (05/16/2025 8:17 AM EST) POCT Glucose 168(H) 74 - 99 mg/dL 05/16/2025 8:21 AM EST [facility] Comment:Accuracy of a glucos e [...] for testing. Comment 05/16/2025 8:21 AM EST [facility] Sliver Chopper ID Char Hinojosa 05/16/2025 8:21 AM EST [facility] Device ID [id number] 05/16/2025 8:21 AM EST [facility] Specimen Type POC Capillary 05/16/2025 8:21 AM EST [facility] Blood Capillary blood specimen / Unknown 05/16/2025 8:17 AM EST 05/16/2025 8:21 AM EST us Selin Lee MD LAB POINT OF CARE TE ST DOCKED DEVICE UNSOLICITED RESULTS Final Result [facility] [address] [place] [address] * (ABNORMAL) CBC and Differential (05/16/2025 4:08 AM EST) WBC Count 7.97 3.70 - 10.30 10*3/uL LAB HEMATOLOGY METHOD 05/16/2025 4:26 AM EST [facility] RBC Count 4.27(L) 4.60 - 6.10 10*6/uL LAB HEMATOLOGY METHOD 05/16/2025 4:26 AM [facility] HGB 9.5(L) 13.7 - 17.5 g/dL LAB HEMATOLOGY METHOD 05/16/2025 4:26 AM [facility] HCT 31.6(L) 40.0 - 51.0 % LAB HEMATOLOGY METHOD 05/16/2025 4:26 AM [facility] Platelet Count 264 155 - 369 10*3/uL LAB HEMATOLOGY METHOD 05/16/2025 4:26 AM [facility] MCV 74(L) 79 - 98 fL LAB HEMATOLOGY METHOD 05/16/2025 4:26 AM [facility] MCH 22.2(L) 26.0 - 32.0 pg LAB HEMATOLOGY METHOD 05/16/2025 4:26 AM [facility] MCHC 30.1(L) 30.7 - 35.5 g/dL LAB HEMATOLOGY METHOD 05/16/2025 4:26 AM [facility] RDW 17.9(H) 11.5 - 14.5 % LAB HEMATOLOGY METHOD 05/16/2025 4:26 AM [facility] MPV 9.2 8.8 - 12.5 fL LAB HEMATOLOGY METHOD 05/16/2025 4:26 AM [facility] nRBC 0.0 <=0.0 per 100 WBCs LAB HEMATOLOGY METHOD 05/16/2025 4:26 AM [facility] Differential Type Automated LAB HEMATOLOGY METHOD 05/16/2025 4:26 AM [facility] Neutrophils % 67 % LAB HEMATOLOGY METHOD 05/16/2025 4:26 AM [facility] Lymphocytes % 16 % LAB HEMATOLOGY METHOD 05/16/2025 4:26 AM [facility] Monocytes % 12 % LAB HEMATOLOGY METHOD 05/16/2025 4:26 AM [facility] Eosinophils % 3 % LAB HEMATOLOGY METHOD 05/16/2025 4:26 AM [facility] Basophils % 1 % LAB HEMATOLOGY METHOD 05/16/2025 4:26 AM [facility] Immature Granulocytes % 1 % LAB HEMATOLOGY METHOD 05/16/2025 4:26 AM [facility] Neutrophils Absolute 5.39 1.60 - 6.10 10*3/uL LAB HEMATOLOGY METHOD 05/16/2025 4:26 AM EST [facility] Lymphocytes Absolute 1.30 1.20 - 3.90 10*3/uL LAB HEMATOLOGY METHOD 05/16/2025 4:26 AM EST [facility] Monocytes Absolute 0.93(H) 0.30 - 0.90 10*3/uL LAB HEMATOLOGY METHOD 05/16/2025 4:26 AM EST [facility] Eosinophils Absolute 0.26 0.00 - 0.50 10*3/uL LAB HEMATOLOGY METHOD 05/16/2025 4:26 AM EST [facility] Basophils Absolute 0.05 0.00 - 0.10 10*3/uL LAB HEMATOLOGY METHOD 05/16/2025 4:26 AM EST [facility] Immature Granulocytes Absolute 0.04 0.00 - 0.06 10*3/uL LAB HEMATOLOGY METHOD 05/16/2025 4:26 AM EST [facility] Blood Venous blood specimen / Unknown Venipuncture / Unknown 05/16/2025 4:08 AM EST 05/16/2025 4:17 AM EST Narrative [facility] - 05/16/2025 4:26 AM EST Therapeutic decision making should be based on absolute values, rather than percentages. us Selin Lee MD LAB BLOOD ORDERABLES Final Re sult [facility] [address] [place] [address] * (ABNORMAL) Magnesium, Plasma (05/16/2025 4:08 AM EST) Magnesium, Plasma 1.8(L) 1.9 - 2.4 mg/dL 05/16/2025 4:48 AM EST [facility] Blood Venous blood specimen / Unknown Venipuncture / Unknown 05/16/2025 4:08 AM EST 05/16/2025 4:16 AM EST us Selin Lee MD LAB BLOOD ORDERABLES Final Re sult [facility] [address] [place] [address] * (ABNORMAL) Basic Metabolic Panel, Plasma (05/16/2025 4:08 AM EST) Glucose, Plasma 168(H) 74 - 99 mg/dL 05/16/2025 4:48 AM EST [facility] BUN, Plasma 19 7 - 21 mg/dL 05/16/2025 4:48 AM EST [facility] Creatinine, Plasma 0.86 0.70 - 1.20 mg/dL 05/16/2025 4:48 AM EST [facility] BUN/Creatinine Ratio 22 05/16/2025 4:48 AM EST [facility] Sodium, Plasma 131(L) 136 - 145 mmol/L 05/16/2025 4:48 AM EST [facility] Potassium, Plasma 3.6 3.6 - 4.9 mmol/L 05/16/2025 4:48 AM EST [facility] Chloride, Plasma 88(L) 97 - 107 mmol/L 05/16/2025 4:48 AM EST [facility] CO2, Plasma 34(H) 22 - 29 mmol/L 05/16/2025 4:48 AM EST [facility] Anion Gap 9 6 - 16 mmol/L 05/16/2025 4:48 AM EST [facility] Total Calcium, Plasma 9.3 8.9 - 10.2 mg/dL 05/16/2025 4:48 AM EST [facility] eGFRcr 107.5 mL/min/1.7 3m*2 05/16/2025 4:48 AM EST [facility] Comment:Reported eGFRcr in m L/min/1.73m2 is based the CKD-EPI 2020 equation that does not use a race coefficient. Blood Venous blood specimen / Unknown Venipuncture / Unknown 05/16/2025 4:08 AM EST 05/16/2025 4:16 AM EST us Selin Lee MD LAB BLOOD ORDERABLES Final Re sult [facility] [address] [place] [address] * Phosphorus, Plasma (05/16/2025 4:08 AM EST) [facility] Phosphorus, Plasma 3.7 2.5 - 4.5 mg/dL 05/16/2025 4:48 AM EST [facility] Blood Venous blood specimen / Unknown Venipuncture / Unknown 05/16/2025 4:08 AM EST 05/16/2025 4:16 AM EST us Selin Lee MD LAB BLOOD ORDERABLES Final Re sult Performing Organization Address City/[facility]/ZIP Co de Phone Number [facility] [address] [place] [address] * (ABNORMAL) POCT glucose meter (05/15/2025 8:00 PM EST) [facility] POCT Glucose 190(H) 74 - 99 [...] 05/15/2025 8:02 PM EST [facility] Sliver Chopper ID Timo Campbell 8:02 PM EST [facility] Device ID [id number] 05/15/2025 8:02 PM EST [facility] Specimen Type POC Capillary 05/15/2025 8:02 PM EST [facility] Blood Capillary blood specimen / Unknown 05/15/2025 8:00 PM EST 05/15/2025 8:02 PM EST us Selin Lee MD LAB POINT OF CARE TE ST DOCKED DEVICE UNSOLICITED RESULTS Final Result Performing Organization Address City/[facility]/ZIP Co de Phone Number [facility] [address] [place] [address] * (ABNORMAL) POCT glucose meter (05/15/2025 4:52 PM EST) [facility] POCT Glucose 270(H) 74 - 99 [...] 05/15/2025 4:53 PM EST [facility] Sliver Chopper ID Ashish Timgus 05/15/2025 4:53 PM EST [facility] Device ID [id number] 05/15/2025 4:53 PM EST [facility] Specimen Type POC Capillary 05/15/2025 4:53 PM EST [facility] Blood Capillary blood specimen / Unknown 05/15/2025 4:52 PM EST 05/15/2025 4:53 PM EST Selin Lee MD LAB POINT OF CARE TE ST DOCKED DEVICE UNSOLICITED RESULTS Final Result Performing Organization Address City/State/[facility] Co de Phone Number [facility] [address] [place] [address] * (ABNORMAL) POCT glucose meter (05/15/2025 12:46 PM EST) [facility] Signature POCT Glucose 233(H) 74 - [...] 05/15/2025 12:48 PM EST [facility] Sliver Chopper ID Santy Garcia 05/15/2025 12:48 PM EST [facility] Device ID [id number] 05/15/2025 12:48 PM EST [facility] Specimen Type POC Capillary 05/15/2025 12:48 PM EST [facility] Blood Capillary blood specimen / Unknown 05/15/2025 12:46 PM EST 05/15/2025 12:48 PM EST us Selin Lee MD LAB POINT OF CARE TE ST DOCKED DEVICE UNSOLICITED RESULTS Final Result Performing Organization Address City/[facility] de Phone Number [facility] [address] [place] [address] * (ABNORMAL) POCT glucose meter (05/15/2025 11:31 [...] for testing. Comment 05/15/2025 11:33 AM EST [facility] Sliver Chopper ID Char Hinojosa 05/15/2025 11:33 AM EST [facility] Device ID [id number] 05/15/2025 11:33 AM EST [facility] Specimen Type POC Capillary 05/15/2025 11:33 AM EST [facility] Blood Capillary blood specimen / Unknown 05/15/2025 11:31 AM EST 05/15/2025 11:33 AM EST us Selin Lee MD LAB POINT OF CARE TE ST DOCKED DEVICE UNSOLICITED RESULTS Final Result Performing Organization Address City/[facility] Co de Phone Number [facility] [address] [place] [address] * (ABNORMAL) POCT glucose meter (05/15/2025 8:12 [...] Comment 05/15/2025 8:14 AM EST [facility] Sliver Chopper ID Char Hinojosa 05/15/2025 8:14 AM EST [facility] Device ID [id number] 05/15/2025 8:14 AM EST [facility] Specimen Type POC Capillary 05/15/2025 8:14 AM EST [facility] Blood Capillary blood specimen / Unknown 05/15/2025 8:12 AM EST 05/15/2025 8:14 AM EST us Selin Lee MD LAB POINT OF CARE TE ST DOCKED DEVICE UNSOLICITED RESULTS Final Result Performing Organization Address City/State/[facility] Co de Phone Number [facility] [address] [place] [address] * (ABNORMAL) CBC and Differential (05/15/2025 2:24 AM EST) WBC Count 8.81 3.70 - 10.30 10*3/uL LAB HEMATOLOGY METHOD 05/15/2025 2:41 AM EST [facility] RBC Count 4.49(L) 4.60 - 6.10 10*6/uL LAB HEMATOLOGY METHOD 05/15/2025 2:41 AM EST [facility] HGB 9.9(L) 13.7 - 17.5 g/dL LAB HEMATOLOGY METHOD 05/15/2025 2:41 AM EST [facility] HCT 33.3(L) 40.0 - 51.0 % LAB HEMATOLOGY METHOD 05/15/2025 2:41 AM EST [facility] Platelet Count 286 155 - 369 10*3/uL LAB HEMATOLOGY METHOD 05/15/2025 2:41 AM EST [facility] MCV 74(L) 79 - 98 fL LAB HEMATOLOGY METHOD 05/15/2025 2:41 AM EST [facility] MCH 22.0(L) 26.0 - 32.0 pg LAB HEMATOLOGY METHOD 05/15/2025 2:41 AM EST [facility] MCHC 29.7(L) 30.7 - 35.5 g/dL LAB HEMATOLOGY METHOD 05/15/2025 2:41 AM EST [facility] RDW 17.8(H) 11.5 - 14.5 % LAB HEMATOLOGY METHOD 05/15/2025 2:41 AM [facility] MPV 9.4 8.8 - 12.5 fL LAB HEMATOLOGY METHOD 05/15/2025 2:41 AM [facility] nRBC 0.0 <=0.0 per 100 WBCs LAB HEMATOLOGY METHOD 05/15/2025 2:41 AM [facility] Differential Type Automated LAB HEMATOLOGY METHOD 05/15/2025 2:41 AM [facility] Neutrophils % 71 % LAB HEMATOLOGY METHOD 05/15/2025 2:41 AM [facility] Lymphocytes % 14 % LAB HEMATOLOGY METHOD 05/15/2025 2:41 AM [facility] Monocytes % 11 % LAB HEMATOLOGY METHOD 05/15/2025 2:41 AM [facility] Eosinophils % 3 % LAB HEMATOLOGY METHOD 05/15/2025 2:41 AM [facility] Basophils % 1 % LAB HEMATOLOGY METHOD 05/15/2025 2:41 AM [facility] Immature Granulocytes % 0 % LAB HEMATOLOGY METHOD 05/15/2025 2:41 AM [facility] Neutrophils Absolute 6.25(H) 1.60 - 6.10 10*3/uL LAB HEMATOLOGY METHOD 05/15/2025 2:41 AM [facility] Lymphocytes Absolute 1.27 1.20 - 3.90 10*3/uL LAB HEMATOLOGY METHOD 05/15/2025 2:41 AM [facility] Monocytes Absolute 0.95(H) 0.30 - 0.90 10*3/uL LAB HEMATOLOGY METHOD 05/15/2025 2:41 AM [facility] Eosinophils Absolute 0.27 0.00 - 0.50 10*3/uL LAB HEMATOLOGY METHOD 05/15/2025 2:41 AM [facility] Basophils Absolute 0.04 0.00 - 0.10 10*3/uL LAB HEMATOLOGY METHOD 05/15/2025 2:41 AM [facility] Immature Granulocytes Absolute 0.03 0.00 - 0.06 10*3/uL LAB HEMATOLOGY METHOD 05/15/2025 2:41 AM [facility] Blood Venous blood specimen / Unknown Venipuncture / Unknown 05/15/2025 2:24 AM EST 05/15/2025 2:33 AM EST Narrative [facility] - 05/15/2025 2:41 AM EST Therapeutic decision making should be based on absolute values, rather than percentages. us Selin Lee MD LAB BLOOD ORDERABLES Final Re sult Performing Organization Address [facility] Co de Phone Number [facility] [address] [place] [address] * (ABNORMAL) Magnesium, Plasma (05/15/2025 2:24 AM EST) Magnesium, Plasma 1.8(L) 1.9 - 2.4 mg/dL 05/15/2025 3:03 AM EST [facility] Blood Venous blood specimen / Unknown Venipuncture / Unknown 05/15/2025 2:24 AM EST 05/15/2025 2:32 AM EST us Selin Lee MD LAB BLOOD ORDERABLES Final Re sult Performing Organization Address [facility] Co de Phone Number [facility] [address] [place] [address] * (ABNORMAL) Basic Metabolic Panel, Plasma (05/15/2025 2:24 AM EST) Glucose, Plasma 162(H) 74 - 99 mg/dL 05/15/2025 3:03 AM EST [facility] BUN, Plasma 15 7 - 21 mg/dL 05/15/2025 3:03 AM EST [facility] Creatinine, Plasma 0.91 0.70 - 1.20 mg/dL 05/15/2025 3:03 AM EST [facility] BUN/Creatinine Ratio 16 05/15/2025 3:03 AM EST [facility] Sodium, Plasma 133(L) 136 - 145 mmol/L 05/15/2025 3:03 AM EST [facility] Potassium, Plasma 3.3(L) 3.6 - 4.9 mmol/L 05/15/2025 3:03 AM EST [facility] Chloride, Plasma 87(L) 97 - 107 mmol/L 05/15/2025 3:03 AM EST [facility] CO2, Plasma 37(H) 22 - 29 mmol/L 05/15/2025 3:03 AM EST [facility] Anion Gap 9 6 - 16 mmol/L 05/15/2025 3:03 AM EST [facility] Total Calcium, Plasma 9.2 8.9 - 10.2 mg/dL 05/15/2025 3:03 AM EST [facility] eGFRcr 104.6 mL/min/1.7 3m*2 05/15/2025 3:03 AM EST [facility] Comment:Reported eGFRcr in m L/min/1.73m2 is based the CKD-EPI 2020 equation that does not use a race coefficient. Blood Venous blood specimen / Unknown Venipuncture / Unknown 05/15/2025 2:24 AM EST 05/15/2025 2:32 AM EST Selin Lee MD LAB BLOOD ORDERABLES Final Re sult Performing Organization Address City/[facility]/ZIP Co de Phone Number [facility] [address] [place] [address] * Phosphorus, Plasma (05/15/2025 2:24 AM EST) Phosphorus, Plasma 3.7 2.5 - 4.5 mg/dL 05/15/2025 3:03 AM EST [facility] Blood Venous blood specimen / Unknown Venipuncture / Unknown 05/15/2025 2:24 AM EST 05/15/2025 2:32 AM EST Selin Lee MD LAB BLOOD ORDERABLES Final Re sult [facility] [address] [place] [address] * (ABNORMAL) POCT glucose meter (05/14/2025 8:09 PM EST) POCT Glucose 194(H) 74 - 99 mg/dL 05/14/2025 8:11 PM EST [facility] Comment:Accuracy of a glucos e [...] 05/14/2025 8:11 PM EST [facility] Sliver [employer]pper ID Stella Coleman 05/14/20 8:11 PM EST [facility] Device ID [id number] 05/14/2025 8:11 PM EST [facility] Specimen Type POC Capillary 05/14/2025 8:11 PM EST [facility] Blood Capillary blood specimen / Unknown 05/14/2025 8:09 PM EST 05/14/2025 8:11 PM EST us Selin Lee MD LAB POINT OF CARE TE ST DOCKED DEVICE UNSOLICITED RESULTS Final Result Performing Organization Address City/[facility] Phone Number [facility] [address] [place] [address] * (ABNORMAL) POCT glucose meter (05/14/2025 5:10 PM EST) [facility] POCT Glucose 320(H) 74 - 99 [...] 05/14/2025 5:13 PM EST [facility] Sliver Chopper ID Dunia Montgomery 05/14/2025 5:13 PM EST [facility] Device ID [id number] 05/14/2025 5:13 PM EST [facility] Specimen Type POC Capillary 05/14/2025 5:13 PM EST [facility] Blood Capillary blood specimen / Unknown 05/14/2025 5:10 PM EST 05/14/2025 5:13 PM EST us Selin Lee MD LAB POINT OF CARE TE ST DOCKED DEVICE UNSOLICITED RESULTS Final Result Performing Organization Address City/State/[facility] Co de Phone Number [facility] [address] [place] [address] * (ABNORMAL) POCT glucose meter (05/14/2025 12:15 PM EST) [facility] POCT Glucose 260(H) 74 - 99 [...] 05/14/2025 4:51 PM EST [facility] Sliver Chopper ID Dunia Montgomery 05/14/2025 4:51 PM EST [facility] Device ID [id number] 05/14/2025 4:51 PM EST [facility] Specimen Type POC Capillary 05/14/2025 4:51 PM EST [facility] Blood Capillary blood specimen / Unknown 05/14/2025 12:15 PM EST 05/14/2025 4:51 PM EST Selin Lee MD LAB POINT OF CARE TE ST DOCKED DEVICE UNSOLICITED RESULTS Final Result Performing Organization Address [facility] Co de Phone Number [facility] [address] [place] [address] * (ABNORMAL) POCT glucose meter (05/14/2025 8:30 AM EST) [facility] POCT Glucose 321(H) 74 - 99 [...] 05/14/2025 8:33 AM EST [facility] Sliver Chopper ID Gatica Aashish Dunia 05/14/2025 8:33 AM EST [facility] Device ID [id number] 05/14/2025 8:33 AM EST [facility] Specimen Type POC Capillary 05/14/2025 8:33 AM EST [facility] Blood Capillary blood specimen / Unknown 05/14/2025 8:30 AM EST 05/14/2025 8:33 AM EST Selin Lee MD LAB POINT OF CARE TE ST DOCKED DEVICE UNSOLICITED RESULTS Final Result Performing Organization Address [facility] Co de Phone Number [facility] [address] [place] [address] * (ABNORMAL) POCT glucose meter (05/14/2025 4:49 [...] Comment 05/31/2025 3:12 PM EST [facility] Sliver Chopper ID Asiya Nix 025 3:12 PM EST [facility] Device ID [id number] 05/31/2025 3:12 PM EST [facility] Specimen Type POC Capillary 05/31/2025 3:12 PM EST [facility] Blood Capillary blood specimen / Unknown 05/14/2025 4:49 AM EST 05/31/2025 3:12 PM EST us Wily Goyal DO LAB POINT OF CARE TE ST DOCKED DEVICE UNSOLICITED RESULTS Final Result Performing Organization Address [facility] Co de Phone Number [facility] [address] [place] [address] * (ABNORMAL) CBC and Differential (05/14/2025 1:45 AM EDT) WBC Count 7.88 3.70 - 10.30 10*3/uL LAB HEMATOLOGY METHOD 05/14/2025 2:47 AM EST [facility] RBC Count 4.25(L) 4.60 - 6.10 10*6/uL LAB HEMATOLOGY METHOD 05/14/2025 2:47 AM EST [facility] HGB 9.7(L) 13.7 - 17.5 g/dL LAB HEMATOLOGY METHOD 05/14/2025 2:47 AM EST [facility] HCT 31.7(L) 40.0 - 51.0 % LAB HEMATOLOGY METHOD 05/14/2025 2:47 AM EST [facility] Platelet Count 273 155 - 369 10*3/uL LAB HEMATOLOGY METHOD 05/14/2025 2:47 AM EST [facility] MCV 75(L) 79 - 98 fL LAB HEMATOLOGY METHOD 05/14/2025 2:47 AM EST [facility] MCH 22.8(L) 26.0 - 32.0 pg LAB HEMATOLOGY METHOD 05/14/2025 2:47 AM EST [facility] MCHC 30.6(L) 30.7 - 35.5 g/dL LAB HEMATOLOGY METHOD 05/14/2025 2:47 AM EST [facility] RDW 17.9(H) 11.5 - 14.5 % LAB HEMATOLOGY METHOD 05/14/2025 2:47 AM EST [facility] MPV 9.6 8.8 - 12.5 fL LAB HEMATOLOGY METHOD 05/14/2025 2:47 AM EST [facility] nRBC 0.0 <=0.0 per 100 WBCs LAB HEMATOLOGY METHOD 05/14/2025 2:47 AM EST [facility] Differential Type Automated LAB HEMATOLOGY METHOD 05/14/2025 2:47 AM EST [facility] Neutrophils % 66 % LAB HEMATOLOGY METHOD 05/14/2025 2:47 AM EST [facility] Lymphocytes % 18 % LAB HEMATOLOGY METHOD 05/14/2025 2:47 AM EST [facility] Monocytes % 11 % LAB HEMATOLOGY METHOD 05/14/2025 2:47 AM EST [facility] Eosinophils % 4 % LAB HEMATOLOGY METHOD 05/14/2025 2:47 AM EST [facility] Basophils % 1 % LAB HEMATOLOGY METHOD 05/14/2025 2:47 AM EST [facility] Immature Granulocytes % 0 % LAB HEMATOLOGY METHOD 05/14/2025 2:47 AM EST [facility] Neutrophils Absolute 5.20 1.60 - 6.10 10*3/uL LAB HEMATOLOGY METHOD 05/14/2025 2:47 AM EST [facility] Lymphocytes Absolute 1.44 1.20 - 3.90 10*3/uL LAB HEMATOLOGY METHOD 05/14/2025 2:47 AM EST [facility] Monocytes Absolute 0.85 0.30 - 0.90 10*3/uL LAB HEMATOLOGY METHOD 05/14/2025 2:47 AM EST [facility] Eosinophils Absolute 0.30 0.00 - 0.50 10*3/uL LAB HEMATOLOGY METHOD 05/14/2025 2:47 AM EST [facility] Basophils Absolute 0.06 0.00 - 0.10 10*3/uL LAB HEMATOLOGY METHOD 05/14/2025 2:47 AM EST [facility] Immature Granulocytes Absolute 0.03 0.00 - 0.06 10*3/uL LAB HEMATOLOGY METHOD 05/14/2025 2:47 AM EST [facility] Blood Venous blood specimen / Unknown Venipuncture / Unknown 05/14/2025 1:45 AM EDT 05/14/2025 2:24 AM EST Narrative [facility] - 05/14/2025 2:47 AM EST Therapeutic decision making should be based on absolute values, rather than percentages. us Selin Lee MD LAB BLOOD ORDERABLES Final Re sult [facility] [address] [place] [address] * (ABNORMAL) Magnesium, Plasma (05/14/2025 1:45 AM EDT) Magnesium, Plasma 1.7(L) 1.9 - 2.4 mg/dL 05/14/2025 2:58 AM EST [facility] Blood Venous blood specimen / Unknown Venipuncture / Unknown 05/14/2025 1:45 AM EDT 05/14/2025 2:25 AM EST us Selin Lee MD LAB BLOOD ORDERABLES Final Re sult [facility] [address] [place] [address] * (ABNORMAL) Basic Metabolic Panel, Plasma (05/14/2025 1:45 AM EDT) Glucose, Plasma 282(H) 74 - 99 mg/dL 05/14/2025 2:58 AM EST [facility] BUN, Plasma 16 7 - 21 mg/dL 05/14/2025 2:58 AM EST [facility] Creatinine, Plasma 0.85 0.70 - 1.20 mg/dL 05/14/2025 2:58 AM EST [facility] BUN/Creatinine Ratio 19 05/14/2025 2:58 AM EST [facility] Sodium, Plasma 132(L) 136 - 145 mmol/L 05/14/2025 2:58 AM EST [facility] Potassium, Plasma 3.5(L) 3.6 - 4.9 mmol/L 05/14/2025 2:58 AM EST [facility] Chloride, Plasma 87(L) 97 - 107 mmol/L 05/14/2025 2:58 AM EST [facility] CO2, Plasma 34(H) 22 - 29 mmol/L 05/14/2025 2:58 AM EST [facility] Anion Gap 11 6 - 16 mmol/L 05/14/2025 2:58 AM EST [facility] Total Calcium, Plasma 9.2 8.9 - 10.2 mg/dL 05/14/2025 2:58 AM EST [facility] eGFRcr 107.9 mL/min/1.7 3m*2 05/14/2025 2:58 AM EST [facility] Comment:Reported eGFRcr in m L/min/1.73m2 is based the CKD-EPI 2020 equation that does not use a race coefficient. Blood Venous blood specimen / Unknown Venipuncture / Unknown 05/14/2025 1:45 AM EDT 05/14/2025 2:25 AM EST Selin Lee MD LAB BLOOD ORDERABLES Final Re sult [facility] [address] [place] [address] * Phosphorus, Plasma (05/14/2025 1:45 AM EDT) Phosphorus, Plasma 3.3 2.5 - 4.5 mg/dL 05/14/2025 2:58 AM EST [facility] Blood Venous blood specimen / Unknown Venipuncture / Unknown 05/14/2025 1:45 AM EDT 05/14/2025 2:25 AM EST us Selin Lee MD LAB BLOOD ORDERABLES Final Re sult Performing Organization Address City/[facility]/ZIP Co de Phone Number [facility] [address] [place] [address] * (ABNORMAL) POCT glucose meter (05/13/2025 7:59 PM EDT) Pathologist [facility] POCT Glucose 257(H) 74 - 99 mg/dL 05/31/2025 3:12 PM EST [facility] Comment:Accuracy of a glucos e [...] Comment 05/31/2025 3:12 PM EST [facility] Sliver Chopper ID Stella Coleman 05/31/20 25 3:12 PM EST [facility] Device ID [id number] 05/31/2025 3:12 PM EST [facility] Specimen Type POC Capillary 05/31/2025 3:12 PM EST [facility] Blood Capillary blood specimen / Unknown 05/13/2025 7:59 PM EDT 05/31/2025 3:12 PM EST us Wily Goyal DO LAB POINT OF CARE TE ST DOCKED DEVICE UNSOLICITED RESULTS Final Result Performing Organization Address City/[facility]/ZIP Co de Phone Number [facility] [address] [place] [address] * (ABNORMAL) POCT glucose meter (05/13/2025 4:58 PM EDT) [facility] POCT Glucose 217(H) 74 - 99 [...] Comment 05/13/2025 5:00 PM EDT [facility] Sliver Chopper ID Priyanka Negrete 05/13/20 5:00 PM EDT [facility] LAB Device ID [id number] 05/13/2025 5:00 PM EDT [facility] Specimen Type POC Capillary 05/13/2025 5:00 PM EDT [facility] Blood Capillary blood specimen / Unknown 05/13/2025 4:58 PM EDT 05/13/2025 5:00 PM EDT Selin Lee MD LAB POINT OF CARE TE ST DOCKED DEVICE UNSOLICITED RESULTS Final Result Performing Organization Address City/State/[facility] Co de Phone Number [facility] [address] [place] [address] * (ABNORMAL) POCT glucose meter (05/13/2025 11:37 AM EDT) [facility] POCT Glucose 255(H) 74 - 99 [...] 05/13/2025 11:41 AM EDT [facility] Sliver Chopper ID Priyanka Negrete 05/13/20 11:41 AM EDT [facility] LAB Device ID [id number] 05/13/2025 11:41 AM EDT [facility] Specimen Type POC Capillary 05/13/2025 11:41 AM EDT [facility] Blood Capillary blood specimen / Unknown 05/13/2025 11:37 AM EDT 05/13/2025 11:41 AM EDT Selin Lee MD LAB POINT OF CARE TE ST DOCKED DEVICE UNSOLICITED RESULTS Final Result [facility] [address] [place] [address] * (ABNORMAL) POCT glucose meter (05/13/2025 7:42 AM EDT) [facility] POCT Glucose 233(H) 74 - 99 mg/dL 05/13/2025 7:45 AM EDT [facility] Comment:Accuracy of a [...] for testing. Comment 05/13/2025 7:45 AM EDT [facility] Sliver Chopper ID Priyanka Negrete 05/13/20 7:45 AM EDT [facility] LAB Device ID [id number] 05/13/2025 7:45 AM EDT [facility] Specimen Type POC Capillary 05/13/2025 7:45 AM EDT [facility] Blood Capillary blood specimen / Unknown 05/13/2025 7:42 AM EDT 05/13/2025 7:45 AM EDT Selin Lee MD LAB POINT OF CARE TE ST DOCKED DEVICE UNSOLICITED RESULTS Final Result [facility] [address] [place] [address] * (ABNORMAL) CBC and Differential (05/13/2025 3:54 AM EDT) Pathologist [facility] WBC Count 7.92 3.70 - 10.30 10*3/uL LAB HEMATOLOGY METHOD 05/13/2025 4:11 AM EDT [facility] RBC Count 4.40(L) 4.60 - 6.10 10*6/uL LAB HEMATOLOGY METHOD 05/13/2025 4:11 AM EDT [facility] HGB 9.9(L) 13.7 - 17.5 g/dL LAB HEMATOLOGY METHOD 05/13/2025 4:11 AM EDT [facility] HCT 33.0(L) 40.0 - 51.0 % LAB HEMATOLOGY METHOD 05/13/2025 4:11 AM EDT [facility] Platelet Count 276 155 - 369 10*3/uL LAB HEMATOLOGY METHOD 05/13/2025 4:11 AM EDT [facility] MCV 75(L) 79 - 98 fL LAB HEMATOLOGY METHOD 05/13/2025 4:11 AM EDT [facility] MCH 22.5(L) 26.0 - 32.0 pg LAB HEMATOLOGY METHOD 05/13/2025 4:11 AM EDT [facility] MCHC 30.0(L) 30.7 - 35.5 g/dL LAB HEMATOLOGY METHOD 05/13/2025 4:11 AM EDT [facility] RDW 17.8(H) 11.5 - 14.5 % LAB HEMATOLOGY METHOD 05/13/2025 4:11 AM EDT [facility] MPV 9.3 8.8 - 12.5 fL LAB HEMATOLOGY METHOD 05/13/2025 4:11 AM EDT [facility] nRBC 0.0 <=0.0 per 100 WBCs LAB HEMATOLOGY METHOD 05/13/2025 4:11 AM EDT [facility] Differential Type Automated LAB HEMATOLOGY METHOD 05/13/2025 4:11 AM EDT [facility] Neutrophils % 69 % LAB HEMATOLOGY METHOD 05/13/2025 4:11 AM EDT [facility] Lymphocytes % 17 % LAB HEMATOLOGY METHOD 05/13/2025 4:11 AM EDT [facility] Monocytes % 10 % LAB HEMATOLOGY METHOD 05/13/2025 4:11 AM EDT [facility] Eosinophils % 3 % LAB HEMATOLOGY METHOD 05/13/2025 4:11 AM EDT [facility] Basophils % 1 % LAB HEMATOLOGY METHOD 05/13/2025 4:11 AM EDT [facility] Immature Granulocytes % 0 % LAB HEMATOLOGY METHOD 05/13/2025 4:11 AM EDT [facility] Neutrophils Absolute 5.47 1.60 - 6.10 10*3/uL LAB HEMATOLOGY METHOD 05/13/2025 4:11 AM EDT [facility] Lymphocytes Absolute 1.33 1.20 - 3.90 10*3/uL LAB HEMATOLOGY METHOD 05/13/2025 4:11 AM EDT [facility] Monocytes Absolute 0.78 0.30 - 0.90 10*3/uL LAB HEMATOLOGY METHOD 05/13/2025 4:11 AM EDT [facility] Eosinophils Absolute 0.27 0.00 - 0.50 10*3/uL LAB HEMATOLOGY METHOD 05/13/2025 4:11 AM EDT [facility] Basophils Absolute 0.04 0.00 - 0.10 10*3/uL LAB HEMATOLOGY METHOD 05/13/2025 4:11 AM EDT [facility] Immature Granulocytes Absolute 0.03 0.00 - 0.06 10*3/uL LAB HEMATOLOGY METHOD 05/13/2025 4:11 AM EDT [facility] Blood Venous blood specimen / Unknown Venipuncture / Unknown 05/13/2025 3:54 AM EDT 05/13/2025 4:01 AM EDT Narrative [facility] - 05/13/2025 4:11 AM EDT Therapeutic decision making should be based on absolute values, rather than percentages. us Selin Lee MD LAB BLOOD ORDERABLES Final Re sult [facility] [address] [place] [address] * Magnesium, Plasma (05/13/2025 3:54 AM EDT) Magnesium, Plasma 1.9 1.9 - 2.4 mg/dL 05/13/2025 4:28 AM EDT [facility] Blood Venous blood specimen / Unknown Venipuncture / Unknown 05/13/2025 3:54 AM EDT 05/13/2025 4:01 AM EDT us Selin Lee MD LAB BLOOD ORDERABLES Final Re sult [facility] [address] [place] [address] * (ABNORMAL) Basic Metabolic Panel, Plasma (05/13/2025 3:54 AM EDT) Glucose, Plasma 238(H) 74 - 99 mg/dL 05/13/2025 4:28 AM EDT [facility] BUN, Plasma 16 7 - 21 mg/dL 05/13/2025 4:28 AM EDT [facility] Creatinine, Plasma 0.96 0.70 - 1.20 mg/dL 05/13/2025 4:28 AM EDT [facility] BUN/Creatinine Ratio 17 05/13/2025 4:28 AM EDT [facility] Sodium, Plasma 131(L) 136 - 145 mmol/L 05/13/2025 4:28 AM EDT [facility] Potassium, Plasma 3.3(L) 3.6 - 4.9 mmol/L 05/13/2025 4:28 AM EDT [facility] Chloride, Plasma 87(L) 97 - 107 mmol/L 05/13/2025 4:28 AM EDT [facility] CO2, Plasma 37(H) 22 - 29 mmol/L 05/13/2025 4:28 AM EDT [facility] Anion Gap 7 6 - 16 mmol/L 05/13/2025 4:28 AM EDT [facility] Total Calcium, Plasma 9.1 8.9 - 10.2 mg/dL 05/13/2025 4:28 AM EDT [facility] eGFRcr 98.1 mL/min/1.7 3m*2 05/13/2025 4:28 AM EDT [facility] Comment:Reported eGFRcr in m L/min/1.73m2 is based the CKD-EPI 2020 equation that does not use a race coefficient. Blood Venous blood specimen / Unknown Venipuncture / Unknown 05/13/2025 3:54 AM EDT 05/13/2025 4:01 AM EDT us Selin Lee MD LAB BLOOD ORDERABLES Final Re sult Performing Organization Address City/[facility]/ZIP Co de Phone Number [facility] [address] [place] [address] * Phosphorus, Plasma (05/13/2025 3:54 AM EDT) [facility] Phosphorus, Plasma 3.3 2.5 - 4.5 mg/dL 05/13/2025 4:28 AM EDT [facility] Blood Venous blood specimen / Unknown Venipuncture / Unknown 05/13/2025 3:54 AM EDT 05/13/2025 4:01 AM EDT us Selin Lee MD LAB BLOOD ORDERABLES Final Re sult Performing Organization Address [facility] Co de Phone Number [facility] [address] [place] [id number] * (ABNORMAL) POCT glucose meter (05/12/2025 7:40 PM EDT) [facility] POCT Glucose 248(H) 74 - 99 [...] 05/12/2025 7:42 PM EDT [facility] Sliver Chopper ID ColemanStella 05/12/20 7:42 PM EDT [facility] Device ID [id number] 05/12/2025 7:42 PM EDT [facility] Specimen Type POC Capillary 05/12/2025 7:42 PM EDT [facility] Blood Capillary blood specimen / Unknown 05/12/2025 7:40 PM EDT 05/12/2025 7:42 PM EDT us Selin Lee MD LAB POINT OF CARE TE ST DOCKED DEVICE UNSOLICITED RESULTS Final Result Performing Organization Address City/[facility]/ZIP Co de Phone Number [facility] [address] [place] [address] * (ABNORMAL) POCT glucose meter (05/12/2025 4:36 PM EDT) [facility] POCT Glucose 235(H) 74 - 99 [...] Comment 05/12/2025 4:38 PM EDT [facility] Sliver Chopper ID Char Hinojosa 05/12/2025 4:38 PM EDT [facility] Device ID [id number] 05/12/2025 4:38 PM EDT [facility] Specimen Type POC Capillary 05/12/2025 4:38 PM EDT [facility] Blood Capillary blood specimen / Unknown 05/12/2025 4:36 PM EDT 05/12/2025 4:38 PM EDT Selin Lee MD LAB POINT OF CARE TE ST DOCKED DEVICE UNSOLICITED RESULTS Final Result [facility] [address] [place] [address] * (ABNORMAL) POCT glucose meter (05/12/2025 11:30 AM EDT) [facility] POCT Glucose 315(H) 74 - 99 [...] 05/12/2025 11:32 AM EDT [facility] Sliver Chopper ID Char Hinojosa 05/12/2025 11:32 AM EDT [facility] Device ID [id number] 05/12/2025 11:32 AM EDT [facility] Specimen Type POC Capillary 05/12/2025 11:32 AM EDT [facility] Blood Capillary blood specimen / Unknown 05/12/2025 11:30 AM EDT 05/12/2025 11:32 AM EDT us Selin Lee MD LAB POINT OF CARE TE ST DOCKED DEVICE UNSOLICITED RESULTS Final Result Performing Organization Address City/[facility]/ZIP Co de Phone Number [facility] [address] [place] [address] * (ABNORMAL) POCT glucose meter (05/12/2025 8:08 AM EDT) [facility] POCT Glucose 274(H) 74 - 99 mg/dL 05/12/2025 8:10 AM EDT [facility] Comment:Accuracy [...] Comment 05/12/2025 8:10 AM EDT [facility] Sliver Chopper ID Char Hinojosa 05/12/2025 8:10 AM EDT [facility] Device ID [id number] 05/12/2025 8:10 AM EDT [facility] Specimen Type POC Capillary 05/12/2025 8:10 AM EDT [facility] Blood Capillary blood specimen / Unknown 05/12/2025 8:08 AM EDT 05/12/2025 8:10 AM EDT us Selin Lee MD LAB POINT OF CARE TE ST DOCKED DEVICE UNSOLICITED RESULTS Final Result Performing Organization Address City/[facility]/ZIP Co de Phone Number [facility] [address] [place] [address] * (ABNORMAL) CBC and Differential (05/12/2025 3:56 AM EDT) WBC Count 7.24 3.70 - 10.30 10*3/uL LAB HEMATOLOGY METHOD 05/12/2025 4:15 AM EDT [facility] RBC Count 4.28(L) 4.60 - 6.10 10*6/uL LAB HEMATOLOGY METHOD 05/12/2025 4:15 AM EDT [facility] HGB 9.4(L) 13.7 - 17.5 g/dL LAB HEMATOLOGY METHOD 05/12/2025 4:15 AM EDT [facility] HCT 31.8(L) 40.0 - 51.0 % LAB HEMATOLOGY METHOD 05/12/2025 4:15 AM EDT [facility] Platelet Count 266 155 - 369 10*3/uL LAB HEMATOLOGY METHOD 05/12/2025 4:15 AM EDT [facility] MCV 74(L) 79 - 98 fL LAB HEMATOLOGY METHOD 05/12/2025 4:15 AM EDT [facility] MCH 22.0(L) 26.0 - 32.0 pg LAB HEMATOLOGY METHOD 05/12/2025 4:15 AM EDT [facility] MCHC 29.6(L) 30.7 - 35.5 g/dL LAB HEMATOLOGY METHOD 05/12/2025 4:15 AM EDT [facility] RDW 18.0(H) 11.5 - 14.5 % LAB HEMATOLOGY METHOD 05/12/2025 4:15 AM EDT [facility] MPV 9.6 8.8 - 12.5 fL LAB HEMATOLOGY METHOD 05/12/2025 4:15 AM EDT [facility] nRBC 0.0 <=0.0 per 100 WBCs LAB HEMATOLOGY METHOD 05/12/2025 4:15 AM EDT [facility] Differential Type Automated LAB HEMATOLOGY METHOD 05/12/2025 4:15 AM EDT [facility] Neutrophils % 71 % LAB HEMATOLOGY METHOD 05/12/2025 4:15 AM EDT [facility] Lymphocytes % 16 % LAB HEMATOLOGY METHOD 05/12/2025 4:15 AM EDT [facility] Monocytes % 9 % LAB HEMATOLOGY METHOD 05/12/2025 4:15 AM EDT [facility] Eosinophils % 3 % LAB HEMATOLOGY METHOD 05/12/2025 4:15 AM EDT [facility] Basophils % 1 % LAB HEMATOLOGY METHOD 05/12/2025 4:15 AM EDT [facility] Immature Granulocytes % 0 % LAB HEMATOLOGY METHOD 05/12/2025 4:15 AM EDT [facility] Neutrophils Absolute 5.14 1.60 - 6.10 10*3/uL LAB HEMATOLOGY METHOD 05/12/2025 4:15 AM EDT [facility] Lymphocytes Absolute 1.15(L) 1.20 - 3.90 10*3/uL LAB HEMATOLOGY METHOD 05/12/2025 4:15 AM EDT [facility] Monocytes Absolute 0.66 0.30 - 0.90 10*3/uL LAB HEMATOLOGY METHOD 05/12/2025 4:15 AM EDT [facility] Eosinophils Absolute 0.22 0.00 - 0.50 10*3/uL LAB HEMATOLOGY METHOD 05/12/2025 4:15 AM EDT [facility] Basophils Absolute 0.05 0.00 - 0.10 10*3/uL LAB HEMATOLOGY METHOD 05/12/2025 4:15 AM EDT [facility] Immature Granulocytes Absolute 0.02 0.00 - 0.06 10*3/uL LAB HEMATOLOGY METHOD 05/12/2025 4:15 AM EDT [facility] Blood Venous blood specimen / Unknown Venipuncture / Unknown 05/12/2025 3:56 AM EDT 05/12/2025 4:03 AM EDT Narrative [facility] - 05/12/2025 4:15 AM EDT Therapeutic decision making should be based on absolute values, rather than percentages. us Selin Lee MD LAB BLOOD ORDERABLES Final Re sult [facility] [address] [place] [address] * (ABNORMAL) Magnesium, Plasma (05/12/2025 3:56 AM EDT) Magnesium, Plasma 1.7(L) 1.9 - 2.4 mg/dL 05/12/2025 4:36 AM EDT [facility] Blood Venous blood specimen / Unknown Venipuncture / Unknown 05/12/2025 3:56 AM EDT 05/12/2025 4:03 AM EDT us Selin Lee MD LAB BLOOD ORDERABLES Final Re sult [facility] [address] [place] [address] * (ABNORMAL) Basic Metabolic Panel, Plasma (05/12/2025 3:56 AM EDT) Glucose, Plasma 383(H) 74 - 99 mg/dL 05/12/2025 4:36 AM EDT [facility] BUN, Plasma 18 7 - 21 mg/dL 05/12/2025 4:36 AM EDT [facility] Creatinine, Plasma 0.86 0.70 - 1.20 mg/dL 05/12/2025 4:36 AM EDT [facility] BUN/Creatinine Ratio 21 05/12/2025 4:36 AM EDT [facility] Sodium, Plasma 130(L) 136 - 145 mmol/L 05/12/2025 4:36 AM EDT [facility] Potassium, Plasma 3.2(L) 3.6 - 4.9 mmol/L 05/12/2025 4:36 AM EDT [facility] Chloride, Plasma 85(L) 97 - 107 mmol/L 05/12/2025 4:36 AM EDT [facility] CO2, Plasma 36(H) 22 - 29 mmol/L 05/12/2025 4:36 AM EDT [facility] Anion Gap 9 6 - 16 mmol/L 05/12/2025 4:36 AM EDT [facility] Total Calcium, Plasma 8.9 8.9 - 10.2 mg/dL 05/12/2025 4:36 AM EDT [facility] eGFRcr 107.5 mL/min/1.7 3m*2 05/12/2025 4:36 AM EDT [facility] Comment:Reported eGFRcr in m L/min/1.73m2 is based the CKD-EPI 2020 equation that does not use a race coefficient. Blood Venous blood specimen / Unknown Venipuncture / Unknown 05/12/2025 3:56 AM EDT 05/12/2025 4:03 AM EDT us Selin Lee MD LAB BLOOD ORDERABLES Final Re sult Performing Organization Address City/[facility]/ZIP Co de Phone Number [facility] [address] [place] [address] * Phosphorus, Plasma (05/12/2025 3:56 AM EDT) [facility] Phosphorus, Plasma 2.8 2.5 - 4.5 mg/dL 05/12/2025 4:36 AM EDT [facility] Blood Venous blood specimen / Unknown Venipuncture / Unknown 05/12/2025 3:56 AM EDT 05/12/2025 4:03 AM EDT us Selin Lee MD LAB BLOOD ORDERABLES Final Re sult Performing Organization Address [facility] Co de Phone Number [facility] [address] [place] [address] * (ABNORMAL) POCT glucose meter (05/12/2025 3:11 AM EDT) [facility] POCT Glucose 348(H) 74 - 99 [...] 05/12/2025 3:13 AM EDT [facility] Sliver Chopper ID Mathew [email or web address] 05/12/2025 3:13 AM EDT [facility] Device ID [id number] 05/12/2025 3:13 AM EDT [facility] Specimen Type POC Capillary 05/12/2025 3:13 AM EDT [facility] Blood Capillary blood specimen / Unknown 05/12/2025 3:11 AM EDT 05/12/2025 3:13 AM EDT us Selin Lee MD LAB POINT OF CARE TE ST DOCKED DEVICE UNSOLICITED RESULTS Final Result Performing Organization Address City/[facility] Co de Phone Number [facility] [address] [place] [address] * (ABNORMAL) POCT glucose meter (05/11/2025 7:57 PM EDT) [facility] POCT Glucose 272(H) 74 - 99 mg/dL [...] Comment 05/11/2025 8:02 PM EDT [facility] Sliver Chopper ID Joel Carmona 05/11/2025 8:02 PM EDT [facility] Device ID [id number] 05/11/2025 8:02 PM EDT [facility] Specimen Type POC Capillary 05/11/2025 8:02 PM EDT [facility] Blood Capillary blood specimen / Unknown 05/11/2025 7:57 PM EDT 05/11/2025 8:02 PM EDT Selin Lee MD LAB POINT OF CARE TE ST DOCKED DEVICE UNSOLICITED RESULTS Final Result Performing Organization Address [facility] Co de Phone Number [facility] [address] [place] [address] * (ABNORMAL) POCT glucose meter (05/11/2025 5:05 PM EDT) [facility] POCT Glucose 258(H) 74 - 99 mg/dL [...] Comment 05/11/2025 5:07 PM EDT [facility] Sliver Chopper ID Char Hinojosa 05/11/2025 5:07 PM EDT [facility] Device ID [id number] 05/11/2025 5:07 PM EDT [facility] Specimen Type POC Capillary 05/11/2025 5:07 PM EDT [facility] Blood Capillary blood specimen / Unknown 05/11/2025 5:05 PM EDT 05/11/2025 5:07 PM EDT Selin Lee MD LAB POINT OF CARE TE ST DOCKED DEVICE UNSOLICITED RESULTS Final Result Performing Organization Address City/[facility]/ZIP Co de Phone Number [facility] [address] [place] [address] * (ABNORMAL) POCT glucose meter (05/11/2025 12:13 PM EDT) [facility] POCT Glucose 240(H) 74 - 99 mg/dL [...] Comment 05/11/2025 12:15 PM EDT [facility] S[facility] [employer] ID Char Hinojosa 05/11/2025 12:15 PM EDT [facility]ARE [facility] Device ID [id number] 05/11/2025 12:15 PM EDT [facility]ALTH[facility]ARE LAB Specimen Type POC Capillary 05/11/2025 12:15 PM EDT [facility] Blood Capillary blood specimen / Unknown 05/11/2025 12:13 PM EDT 05/11/2025 12:15 PM EDT us Selin Lee MD LAB POINT OF CARE TE ST DOCKED DEVICE UNSOLICITED RESULTS Final Result Performing Organization Address City/[facility]/ZIP Co de Phone Number [facility] [address] [place] [address] * (ABNORMAL) POCT glucose meter (05/11/2025 7:57 [...] Comment 05/11/2025 7:59 AM EDT [facility] Sliver Chopper ID Char Hinojosa 05/11/2025 7:59 AM EDT [facility]ALTH[facility]ARE LAB Device ID [id number] 05/11/2025 7:59 AM EDT [facility]ARE [facility] Specimen Type POC Capillary 05/11/2025 7:59 AM EDT [facility] Blood Capillary blood specimen / Unknown 05/11/2025 7:57 AM EDT 05/11/2025 7:59 AM EDT Selin Lee MD LAB POINT OF CARE TE ST DOCKED DEVICE UNSOLICITED RESULTS Final Result Performing Organization Address City/State/[facility] Co de Phone Number [facility]ARE [facility] [address] [place] [address] * ECG Adult (05/11/2025 6:11 AM EDT) Pathologist [facility] EKG DIAGNOSIS CLASS Abnormal MUSE ECG Ventricular Rate 59 BPM MUSE ECG Atrial Rate 59 BPM MUSE ECG OH Interval 176 ms MUSE ECG QRSD Interval 160 ms MUSE ECG QT Interval 520 ms MUSE ECG QTC Interval 514 ms MUSE ECG P [place] 21 degrees MUSE ECG R [place] -32 degrees MUSE ECG T Wave [place] -9 degrees MUSE ECG Diagnosis Sinus bradycardia [...] MUSE ECG Diagnosis Confirmed by Tone Lainez ([id number]) on 05/12/2025 11:35:23 AM MUSE ECG 05/11/2025 6:11 AM EDT 05/12/2025 11:35 AM EDT us Selin Lee MD ECG ORDERABLES Final Result Performing Organization Address City/[facility]/ZIP Co de Phone Number MUSE ECG [...] Comment 05/11/2025 3:45 AM EDT [facility] Sliver Chopper ID Kaylin Barron 05/11/2025 3:45 AM EDT [facility] Device ID [id number] 05/11/2025 3:45 AM EDT [facility] Specimen Type POC Capillary 05/11/2025 3:45 AM EDT [facility] Blood Capillary blood specimen / Unknown 05/11/2025 3:42 AM EDT 05/11/2025 3:45 AM EDT us Selin Lee MD LAB POINT OF CARE TE ST DOCKED DEVICE UNSOLICITED RESULTS Final Result Performing Organization Address City/[facility] Co de Phone Number [facility] [address] [place] [address] * (ABNORMAL) CBC and Differential (05/11/2025 3:24 AM EDT) WBC Count 6.72 3.70 - 10.30 10*3/uL LAB HEMATOLOGY METHOD 05/11/2025 3:42 AM EDT [facility] RBC Count 4.13(L) 4.60 - 6.10 10*6/uL LAB HEMATOLOGY METHOD 05/11/2025 3:42 AM EDT [facility] HGB 9.5(L) 13.7 - 17.5 g/dL LAB HEMATOLOGY METHOD 05/11/2025 3:42 AM EDT [facility] HCT 31.1(L) 40.0 - 51.0 % LAB HEMATOLOGY METHOD 05/11/2025 3:42 AM EDT [facility] Platelet Count 253 155 - 369 10*3/uL LAB HEMATOLOGY METHOD 05/11/2025 3:42 AM EDT [facility] MCV 75(L) 79 - 98 fL LAB HEMATOLOGY METHOD 05/11/2025 3:42 AM EDT [facility] MCH 23.0(L) 26.0 - 32.0 pg LAB HEMATOLOGY METHOD 05/11/2025 3:42 AM EDT [facility] MCHC 30.5(L) 30.7 - 35.5 g/dL LAB HEMATOLOGY METHOD 05/11/2025 3:42 AM EDT [facility] RDW 17.8(H) 11.5 - 14.5 % LAB HEMATOLOGY METHOD 05/11/2025 3:42 AM EDT [facility] MPV 9.5 8.8 - 12.5 fL LAB HEMATOLOGY METHOD 05/11/2025 3:42 AM EDT [facility] nRBC 0.0 <=0.0 per 100 WBCs LAB HEMATOLOGY METHOD 05/11/2025 3:42 AM EDT [facility] Differential Type Automated LAB HEMATOLOGY METHOD 05/11/2025 3:42 AM EDT [facility] Neutrophils % 68 % LAB HEMATOLOGY METHOD 05/11/2025 3:42 AM EDT [facility] Lymphocytes % 17 % LAB HEMATOLOGY METHOD 05/11/2025 3:42 AM EDT [facility] Monocytes % 11 % LAB HEMATOLOGY METHOD 05/11/2025 3:42 AM EDT [facility] Eosinophils % 3 % LAB HEMATOLOGY METHOD 05/11/2025 3:42 AM EDT [facility] Basophils % 1 % LAB HEMATOLOGY METHOD 05/11/2025 3:42 AM EDT [facility] Immature Granulocytes % 0 % LAB HEMATOLOGY METHOD 05/11/2025 3:42 AM EDT [facility] Neutrophils Absolute 4.61 1.60 - 6.10 10*3/uL LAB HEMATOLOGY METHOD 05/11/2025 3:42 AM EDT [facility] Lymphocytes Absolute 1.11(L) 1.20 - 3.90 10*3/uL LAB HEMATOLOGY METHOD 05/11/2025 3:42 AM EDT [facility] Monocytes Absolute 0.72 0.30 - 0.90 10*3/uL LAB HEMATOLOGY METHOD 05/11/2025 3:42 AM EDT [facility] Eosinophils Absolute 0.21 0.00 - 0.50 10*3/uL LAB HEMATOLOGY METHOD 05/11/2025 3:42 AM EDT [facility] Basophils Absolute 0.05 0.00 - 0.10 10*3/uL LAB HEMATOLOGY METHOD 05/11/2025 3:42 AM EDT [facility] Immature Granulocytes Absolute 0.02 0.00 - 0.06 10*3/uL LAB HEMATOLOGY METHOD 05/11/2025 3:42 AM EDT [facility] Blood Venous blood specimen / Unknown Venipuncture / Unknown 05/11/2025 3:24 AM EDT 05/11/2025 3:30 AM EDT Narrative [facility] - 05/11/2025 3:42 AM EDT Therapeutic decision making should be based on absolute values, rather than percentages. us Selin Lee MD LAB BLOOD ORDERABLES Final Re sult Performing Organization Address [facility]/ZIP Co de Phone Number [facility] [address] [place] [address] * (ABNORMAL) Magnesium, Plasma (05/11/2025 3:24 AM EDT) Magnesium, Plasma 1.8(L) 1.9 - 2.4 mg/dL 05/11/2025 3:58 AM EDT [facility] Blood Venous blood specimen / Unknown Venipuncture / Unknown 05/11/2025 3:24 AM EDT 05/11/2025 3:30 AM EDT us Selin Lee MD LAB BLOOD ORDERABLES Final Re sult Performing Organization Address City/[facility]/ZIP Co de Phone Number [facility] [address] [place] [address] * (ABNORMAL) Basic Metabolic Panel, Plasma (05/11/2025 3:24 AM EDT) Glucose, Plasma 338(H) 74 - 99 mg/dL 05/11/2025 3:58 AM EDT [facility] BUN, Plasma 18 7 - 21 mg/dL 05/11/2025 3:58 AM EDT [facility] Creatinine, Plasma 0.86 0.70 - 1.20 mg/dL 05/11/2025 3:58 AM EDT [facility] BUN/Creatinine Ratio 21 05/11/2025 3:58 AM EDT [facility] Sodium, Plasma 131(L) 136 - 145 mmol/L 05/11/2025 3:58 AM EDT [facility] Potassium, Plasma 3.2(L) 3.6 - 4.9 mmol/L 05/11/2025 3:58 AM EDT [facility] Chloride, Plasma 85(L) 97 - 107 mmol/L 05/11/2025 3:58 AM EDT [facility] CO2, Plasma 39(H) 22 - 29 mmol/L 05/11/2025 3:58 AM EDT [facility] Anion Gap 7 6 - 16 mmol/L 05/11/2025 3:58 AM EDT [facility] Total Calcium, Plasma 9.1 8.9 - 10.2 mg/dL 05/11/2025 3:58 AM EDT [facility] eGFRcr 107.5 mL/min/1.7 3m*2 05/11/2025 3:58 AM EDT [facility] Comment:Reported eGFRcr in m L/min/1.73m2 is based the CKD-EPI 2020 equation that does not use a race coefficient. Blood Venous blood specimen / Unknown Venipuncture / Unknown 05/11/2025 3:24 AM EDT 05/11/2025 3:30 AM EDT us Selin Lee MD LAB BLOOD ORDERABLES Final Re sult [facility] [address] [place] [address] * Phosphorus, Plasma (05/11/2025 3:24 AM EDT) [facility] Phosphorus, Plasma 3.1 2.5 - 4.5 mg/dL 05/11/2025 3:58 AM EDT [facility] Blood Venous blood specimen / Unknown Venipuncture / Unknown 05/11/2025 3:24 AM EDT 05/11/2025 3:30 AM EDT us Selin Lee MD LAB BLOOD ORDERABLES Final Re sult [facility] [address] [place] [address] * (ABNORMAL) POCT glucose meter (05/10/2025 7:07 PM EDT) [facility] POCT Glucose 398(H) 74 - 99 [...] 05/10/2025 7:10 PM EDT [facility] Sliver [facility]pper ID Char Hinojosa 05/10/2025 7:10 PM EDT HEALTHCARE LAB Device ID [id number] 05/10/2025 7:10 PM EDT [facility]ALTH[facility]ARE [facility] Specimen Type POC Capillary 05/10/2025 7:10 PM EDT [facility] Blood Capillary blood specimen / Unknown 05/10/2025 7:07 PM EDT 05/10/2025 7:10 PM EDT us Selin Lee MD LAB POINT OF CARE TE ST DOCKED DEVICE UNSOLICITED RESULTS Final Result Performing Organization Address City/[facility]/ZIP Co de Phone Number [facility] [address] [place] [address] * (ABNORMAL) POCT glucose meter (05/10/2025 4:55 [...] 05/10/2025 4:57 PM EDT [facility] Sliver Chopper ID Char Hinojosa 05/10/2025 4:57 PM EDT [facility]ALTH[facility]ARE [facility] Device ID [id number] 05/10/2025 4:57 PM EDT [facility] Specimen Type POC Capillary 05/10/2025 4:57 PM EDT [facility] Blood Capillary blood specimen / Unknown 05/10/2025 4:55 PM EDT 05/10/2025 4:57 PM EDT Selin Lee MD LAB POINT OF CARE TE ST DOCKED DEVICE UNSOLICITED RESULTS Final Result [facility] [address] [place] [address] * (ABNORMAL) POCT glucose meter (05/10/2025 11:41 AM EDT) [facility] POCT Glucose 348(H) 74 - 99 [...] 05/10/2025 11:43 AM EDT [facility] Sliver Chopper ID Char Hinojosa 05/10/2025 11:43 AM EDT [facility] Device ID [id number] 05/10/2025 11:43 AM EDT [facility] Specimen Type POC Capillary 05/10/2025 11:43 AM EDT [facility] Blood Capillary blood specimen / Unknown 05/10/2025 11:41 AM EDT 05/10/2025 11:43 AM EDT us Selin Lee MD LAB POINT OF CARE TE ST DOCKED DEVICE UNSOLICITED RESULTS Final Result [facility] [address] [place] [address] * ECG 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/2025 11:20 AM EDT) EKG DIAGNOSIS CLASS Abnormal MUSE ECG Ventricular Rate 65 BPM MUSE ECG Atrial Rate 65 BPM MUSE ECG OH Interval 198 ms MUSE ECG QRSD Interval 154 ms MUSE ECG QT Interval 508 ms MUSE ECG QTC Interval 528 ms MUSE ECG P [place] 66 degrees MUSE ECG R [place] -39 degrees MUSE ECG T Wave [place] -16 degrees MUSE ECG Diagnosis Normal sinus rhythm with sinus arrhythmia MUSE ECG Diagnosis Left axis deviation MUSE ECG Diagnosis Right bundle branch block MUSE ECG Diagnosis Minimal voltage criteria for LVH, may be normal variant ( R in aVL ) MUSE ECG Diagnosis Abnormal ECG MUSE ECG Diagnosis MUSE ECG Diagnosis Confirmed by Manas Mccauley ([id number]) on 05/10/2025 3:20:48 PM MUSE ECG 05/10/2025 11:2 0 AM EDT 05/10/2025 3:20 PM EDT us Selin Lee MD ECG ORDERABLES Final Result Performing Organization Address City/[facility] Co de Phone Number MUSE ECG * (ABNORMAL) POCT glucose meter (05/10/2025 7:30 AM EDT) POCT Glucose 332(H) 74 - 99 mg/dL 05/10/2025 7:33 AM EDT [facility] Comment:Accuracy of a glucos e result [...] for testing. Comment 05/10/2025 7:33 AM EDT [facility] Sliver Chopper ID Char Hinojosa 05/10/2025 7:33 AM EDT HEALTHCARE LAB Device ID [id number] 05/10/2025 7:33 AM EDT [facility] Specimen Type POC Capillary 05/10/2025 7:33 AM EDT [facility] Blood Capillary blood specimen / Unknown 05/10/2025 7:30 AM EDT 05/10/2025 7:33 AM EDT Selin Lee MD LAB POINT OF CARE TE ST DOCKED DEVICE UNSOLICITED RESULTS Final Result [facility] [address] [place] [address] * ECG 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/2025 6:14 AM EDT) Pathologist [facility] EKG DIAGNOSIS CLASS Abnormal MUSE ECG Ventricular Rate 56 BPM MUSE ECG Atrial Rate 56 BPM MUSE ECG OH Interval 196 ms MUSE ECG QRSD Interval 164 ms MUSE ECG QT Interval 508 ms MUSE ECG QTC Interval 490 ms MUSE ECG P [place] 74 degrees MUSE ECG R [place] -33 degrees MUSE ECG T Wave [place] -10 degrees MUSE ECG Diagnosis Sinus bradycardia with sinus arrhythmia MUSE ECG Diagnosis Left axis deviation MUSE ECG Diagnosis Right bundle branch block MUSE ECG Diagnosis T wave abnormality, consider lateral ischemia MUSE ECG Diagnosis Abnormal ECG MUSE ECG Diagnosis MUSE ECG Diagnosis Confirmed by Manas Mccauley ([id number]) on 05/10/2025 2:45:37 PM MUSE ECG 05/10/2025 6:14 AM EDT 05/10/2025 2:45 PM EDT us Selin Lee MD ECG ORDERABLES Final Result MUSE ECG * (ABNORMAL) POCT glucose meter (05/10/2025 4:00 AM EDT) Pathologist [facility] POCT Glucose 377(H) 74 - 99 mg/dL [...] 05/10/2025 4:02 AM EDT [facility] Sliver Chopper ID Maribell Saeed 4:02 AM EDT HEALTH[facility]ARE LAB Device ID [id number] 05/10/2025 4:02 AM EDT [facility] Specimen Type POC Capillary 05/10/2025 4:02 AM EDT [facility] Blood Capillary blood specimen / Unknown 05/10/2025 4:00 AM EDT 05/10/2025 4:02 AM EDT Diane Guzman MD LAB POINT OF CARE T EST DOCKED DEVICE UNSOLICITED RESULTS Final Result [facility] [address] [place] [address] * (ABNORMAL) POCT glucose meter (05/09/2025 8:37 PM EDT) [facility] POCT Glucose 296(H) 74 - 99 [...] Comment 05/09/2025 8:39 PM EDT [facility] Sliver Chopper ID Maribell Saeed 8:39 PM EDT [facility]ARE LAB Device ID [id number] 05/09/2025 8:39 PM EDT [facility] Specimen Type POC Capillary 05/09/2025 8:39 PM EDT [facility] Blood Capillary blood specimen / Unknown 05/09/2025 8:37 PM EDT 05/09/2025 8:39 PM EDT us Diane Guzman MD LAB POINT OF CARE T EST DOCKED DEVICE UNSOLICITED RESULTS Final Result [facility] [address] [place] [address] * Magnesium (05/09/2025 5:54 PM EDT) Magnesium, Plasma 1.9 1.9 - 2.4 mg/dL 05/09/2025 6:56 PM EDT [facility] Blood Venous blood specimen / Unknown Venipuncture / Unknown 05/09/2025 5:54 PM EDT 05/09/2025 6:25 PM EDT us Selin Lee MD LAB BLOOD ORDERABLES Final Re sult Performing Organization Address [facility]/ZIP Co de Phone Number [facility] [address] [place] [address] * (ABNORMAL) Basic metabolic panel (05/09/2025 5:54 PM EDT) Glucose, Plasma 416(H) 74 - 99 mg/dL 05/09/2025 6:56 PM EDT [facility] BUN, Plasma 17 7 - 21 mg/dL 05/09/2025 6:56 PM EDT [facility] Creatinine, Plasma 0.81 0.70 - 1.20 mg/dL 05/09/2025 6:56 PM EDT [facility] BUN/Creatinine Ratio 21 05/09/2025 6:56 PM EDT [facility] Sodium, Plasma 130(L) 136 - 145 mmol/L 05/09/2025 6:56 PM EDT [facility] Potassium, Plasma 3.1(L) 3.6 - 4.9 mmol/L 05/09/2025 6:56 PM EDT [facility] Chloride, Plasma 84(L) 97 - 107 mmol/L 05/09/2025 6:56 PM EDT [facility] CO2, Plasma 35(H) 22 - 29 mmol/L 05/09/2025 6:56 PM EDT [facility] Anion Gap 11 6 - 16 mmol/L 05/09/2025 6:56 PM EDT [facility] Total Calcium, Plasma 9.1 8.9 - 10.2 mg/dL 05/09/2025 6:56 PM EDT [facility] eGFRcr 109.4 mL/min/1.7 3m*2 05/09/2025 6:56 PM EDT [facility] Comment:Reported eGFRcr in m L/min/1.73m2 is based the CKD-EPI 2020 equation that does not use a race coefficient. Blood Venous blood specimen / Unknown Venipuncture / Unknown 05/09/2025 5:54 PM EDT 05/09/2025 6:25 PM EDT us Selin Lee MD LAB BLOOD ORDERABLES Final Re sult Performing Organization Address City/[facility] Co de Phone Number [facility] [address] [place] [address] * (ABNORMAL) POCT glucose meter (05/09/2025 5:17 PM EDT) POCT Glucose 398(H) 74 - 99 mg/dL 05/09/2025 5:20 PM EDT [facility] Comment:Accuracy of a glucos e result [...] Comment 05/09/2025 5:20 PM EDT [facility] Sliver Chopper ID Char Hinojosa 05/09/2025 5:20 PM EDT HEALTHCARE LAB Device ID [id number] 05/09/2025 5:20 PM EDT [facility]ARE LAB Specimen Type POC Capillary 05/09/2025 5:20 PM EDT [facility] Blood Capillary blood specimen / Unknown 05/09/2025 5:17 PM EDT 05/09/2025 5:20 PM EDT us Diane Guzman MD LAB POINT OF CARE T EST DOCKED DEVICE UNSOLICITED RESULTS Final Result Performing Organization Address City/[facility]/ZIP Co de Phone Number [facility] [address] [place] [address] * ECG Adult (05/09/2025 12:34 PM EDT) EKG DIAGNOSIS CLASS Abnormal MUSE ECG Ventricular Rate 75 BPM MUSE ECG Atrial Rate 75 BPM MUSE ECG OH Interval 176 ms MUSE ECG QRSD Interval 164 ms MUSE ECG QT Interval 454 ms MUSE ECG QTC Interval 506 ms MUSE ECG P [place] 70 degrees MUSE ECG R [place] -38 degrees MUSE ECG T Wave [place] 2 degrees MUSE ECG Diagnosis Normal sinus rhythm MUSE ECG Diagnosis Left axis deviation MUSE ECG Diagnosis Right bundle branch block MUSE ECG Diagnosis Minimal voltage criteria for LVH, may be normal variant ( R in aVL ) MUSE ECG Diagnosis T wave abnormality, consider lateral ischemia MUSE ECG Diagnosis Abnormal ECG MUSE ECG Diagnosis MUSE ECG Diagnosis Confirmed by Garrett Robles ([id number]) on 05/09/2025 2:20:08 PM MUSE ECG 05/09/2025 12:3 4 PM EDT 05/09/2025 2:20 PM EDT Selin Lee MD ECG ORDERABLES Final Result MUSE ECG * (ABNORMAL) POCT glucose meter (05/09/2025 12:25 PM EDT) Pathologist [facility] POCT Glucose 283(H) 74 - 99 mg/dL [...] 05/09/2025 12:27 PM EDT [facility] Sliver Chopper ID Dunia Montgomery 05/09/2025 12:27 PM EDT HEALTHCARE LAB Device ID [id number] 05/09/2025 12:27 PM EDT [facility] Specimen Type POC Capillary 05/09/2025 12:27 PM EDT [facility] Blood Capillary blood specimen / Unknown 05/09/2025 12:25 PM EDT 05/09/2025 12:27 PM EDT us Diane Guzman MD LAB POINT OF CARE T EST DOCKED DEVICE UNSOLICITED RESULTS Final Result Performing Organization Address [facility] de Phone Number [facility]ARE [facility] [address] [place] [address] * (ABNORMAL) POCT glucose meter (05/09/2025 7:52 AM EDT) Pathologist [facility] POCT Glucose 306(H) 74 - 99 mg/dL [...] Comment 05/09/2025 7:54 AM EDT [facility] Sliver Chopper ID Char Hinojosa 05/09/2025 7:54 AM EDT [facility] Device ID [id number] 05/09/2025 7:54 AM EDT [facility] Specimen Type POC Capillary 05/09/2025 7:54 AM EDT [facility] Blood Capillary blood specimen / Unknown 05/09/2025 7:52 AM EDT 05/09/2025 7:54 AM EDT us Diane Guzman MD LAB POINT OF CARE T EST DOCKED DEVICE UNSOLICITED RESULTS Final Result Performing Organization Address City/[facility] de Phone Number [facility] [address] [place] [address] * (ABNORMAL) POCT glucose meter (05/08/2025 11:54 PM EDT) Pathologist [facility] POCT Glucose 273(H) 74 - 99 mg/dL [...] 05/08/2025 11:56 PM EDT [facility] Sliver Chopper ID Kaylin Barron 05/08/2025 11:56 PM EDT [facility] Device ID [id number] 05/08/2025 11:56 PM EDT [facility] Specimen Type POC Capillary 05/08/2025 11:56 PM EDT [facility] Blood Capillary blood specimen / Unknown 05/08/2025 11:54 PM EDT 05/08/2025 11:56 PM EDT Diane Guzman MD LAB POINT OF CARE T EST DOCKED DEVICE UNSOLICITED RESULTS Final Result Performing Organization Address [facility] de Phone Number [facility] [address] [place] [address] * (ABNORMAL) POCT glucose meter (05/08/2025 7:33 [...] Comment 05/08/2025 7:35 PM EDT [facility] Sliver Chopper ID Kaylin Barron 05/08/2025 7:35 PM EDT HEALTHCARE LAB Device ID [id number] 05/08/2025 7:35 PM EDT [facility] Specimen Type POC Capillary 05/08/2025 7:35 PM EDT [facility] Blood Capillary blood specimen / Unknown 05/08/2025 7:33 PM EDT 05/08/2025 7:35 PM EDT us Diane Guzman MD LAB POINT OF CARE T EST DOCKED DEVICE UNSOLICITED RESULTS Final Result Performing Organization Address [facility] Co de Phone Number [facility] [address] [place] [address] * (ABNORMAL) POCT glucose meter (05/08/2025 5:00 PM EDT) [facility] POCT Glucose 347(H) 74 - 99 [...] 05/08/2025 5:02 PM EDT [facility] Sliver Chopper ID Char iHnojosa 05/08/2025 5:02 PM EDT [facility] Device ID [id number] 05/08/2025 5:02 PM EDT [facility] Specimen Type POC Capillary 05/08/2025 5:02 PM EDT [facility] Blood Capillary blood specimen / Unknown 05/08/2025 5:00 PM EDT 05/08/2025 5:02 PM EDT Diane Guzman MD LAB POINT OF CARE T EST DOCKED DEVICE UNSOLICITED RESULTS Final Result [facility] [address] [place] [address] * (ABNORMAL) POCT glucose meter (05/08/2025 11:42 AM EDT) [facility] POCT Glucose 298(H) 74 - 99 [...] 05/08/2025 11:44 AM EDT [facility] Sliver Chopper ID Char Hinojosa 05/08/2025 11:44 AM EDT [facility] Device ID [id number] 05/08/2025 11:44 AM EDT [facility] Specimen Type POC Capillary 05/08/2025 11:44 AM EDT [facility] Blood Capillary blood specimen / Unknown 05/08/2025 11:42 AM EDT 05/08/2025 11:44 AM EDT Diane Guzman MD LAB POINT OF CARE T EST DOCKED DEVICE UNSOLICITED RESULTS Final Result Performing Organization Address City/[facility] Co de Phone Number [facility] [address] [place] [address] * (ABNORMAL) POCT glucose meter (05/08/2025 8:05 [...] Comment 05/08/2025 8:07 AM EDT [facility] Sliver Chopper ID Char Hinojosa 05/08/2025 8:07 AM EDT HEALTHCARE LAB Device ID [id number] 05/08/2025 8:07 AM EDT [facility] Specimen Type POC Capillary 05/08/2025 8:07 AM EDT [facility] Blood Capillary blood specimen / Unknown 05/08/2025 8:05 AM EDT 05/08/2025 8:07 AM EDT Diane Guzman MD LAB POINT OF CARE T EST DOCKED DEVICE UNSOLICITED RESULTS Final Result Performing Organization Address City/[facility] Co de Phone Number [facility] [address] [place] [address] * (ABNORMAL) POCT glucose meter (05/08/2025 3:56 [...] 05/08/2025 3:58 AM EDT [facility] Sliver Chopper ID Stella Coleman 05/08/20 3:58 AM EDT [facility] Device ID [id number] 05/08/2025 3:58 AM EDT [facility] Specimen Type POC Capillary 05/08/2025 3:58 AM EDT [facility] Blood Capillary blood specimen / Unknown 05/08/2025 3:56 AM EDT 05/08/2025 3:58 AM EDT Diane Guzman MD LAB POINT OF CARE T EST DOCKED DEVICE UNSOLICITED RESULTS Final Result Performing Organization Address City/State/[facility] Co de Phone Number [facility] [address] [place] [address] * (ABNORMAL) POCT glucose meter (05/07/2025 8:14 PM EDT) [facility] POCT Glucose 392(H) 74 - 99 [...] 05/07/2025 8:15 PM EDT [facility] Sliver [employer]pper ID Fela Coelho 05/07/2025 8:15 PM EDT [facility] Device ID [id number] 05/07/2025 8:15 PM EDT [facility] Specimen Type POC Capillary 05/07/2025 8:15 PM EDT [facility] Blood Capillary blood specimen / Unknown 05/07/2025 8:14 PM EDT 05/07/2025 8:15 PM EDT Diane Guzman MD LAB POINT OF CARE T EST DOCKED DEVICE UNSOLICITED RESULTS Final Result Performing Organization Address City/[facility] Co de Phone Number [facility] [address] [place] [address] * (ABNORMAL) POCT glucose meter (05/07/2025 5:10 PM EDT) Pathologist [facility] POCT Glucose 411(H) 74 - 99 mg/dL [...] Comment 05/07/2025 5:13 PM EDT HEALTHCARE [facility] Sliver [employer]pper ID Priyanka Negrete 05/07/20 5:13 PM EDT HEALTHCARE LAB Device ID [id number] 05/07/2025 5:13 PM EDT [facility] Specimen Type POC Capillary 05/07/2025 5:13 PM EDT [facility] Blood Capillary blood specimen / Unknown 05/07/2025 5:10 PM EDT 05/07/2025 5:13 PM EDT Diane Guzman MD LAB POINT OF CARE T EST DOCKED DEVICE UNSOLICITED RESULTS Final Result Performing Organization Address City/[facility] Co de Phone Number HEALTHCARE LAB [address] [place] [address] * (ABNORMAL) POCT glucose meter (05/07/2025 12:04 PM EDT) Pathologist [facility] POCT Glucose 350(H) 74 - 99 mg/dL [...] 05/07/2025 12:10 PM EDT [facility] Sliver [employer] ID Priyanka Negrete 05/07/20 12:10 PM EDT HEALTHCARE LAB Device ID [id number] 05/07/2025 12:10 PM EDT HEALTHCARE LAB Specimen Type POC Capillary 05/07/2025 12:10 PM EDT [facility] Blood Capillary blood specimen / Unknown 05/07/2025 12:04 PM EDT 05/07/2025 12:10 PM EDT Diane Guzman MD LAB POINT OF CARE T EST DOCKED DEVICE UNSOLICITED RESULTS Final Result Performing Organization Address City/[facility] Co de Phone Number [facility]ARE [facility] [address] [place] [address] * (ABNORMAL) POCT glucose meter (05/07/2025 7:41 [...] Comment 05/07/2025 7:44 AM EDT [facility] Sliver Chopper ID Priyanka Negrete 05/07/20 7:44 AM EDT HEALTHCARE LAB Device ID [id number] 05/07/2025 7:44 AM EDT [facility]ALTHCARE [facility] Specimen Type POC Capillary 05/07/2025 7:44 AM EDT [facility] Blood Capillary blood specimen / Unknown 05/07/2025 7:41 AM EDT 05/07/2025 7:44 AM EDT us Diane Guzman MD LAB POINT OF CARE T EST DOCKED DEVICE UNSOLICITED RESULTS Final Result Performing Organization Address City/[facility]/ZIP Co de Phone Number [facility]CARE [facility] [address] [place] [address] * (ABNORMAL) POCT glucose meter (05/07/2025 3:41 AM EDT) [facility] POCT Glucose 407(H) 74 - 99 mg/dL [...] Comment 05/07/2025 3:43 AM EDT [facility]ALTH[facility]ARE [facility] Sliver Chopper ID YesseniaWon 05/07/2025 3:43 AM EDT [facility] Device ID [id number] 05/07/2025 3:43 AM EDT [facility] Specimen Type POC Capillary 05/07/2025 3:43 AM EDT [facility]ARE [facility] Blood Capillary blood specimen / Unknown 05/07/2025 3:41 AM EDT 05/07/2025 3:43 AM EDT Diane Guzman MD LAB POINT OF CARE T EST DOCKED DEVICE UNSOLICITED RESULTS Final Result [facility] [address] [place] [address] * (ABNORMAL) POCT glucose meter (05/06/2025 8:01 PM EDT) [facility] POCT Glucose 324(H) 74 - 99 [...] 05/06/2025 8:02 PM EDT [facility] Sliver Chopper ID Yessenia Won 05/06/2025 8:02 PM EDT [facility] Device ID [id number] 05/06/2025 8:02 PM EDT [facility] Specimen Type POC Capillary 05/06/2025 8:02 PM EDT [facility] Blood Capillary blood specimen / Unknown 05/06/2025 8:01 PM EDT 05/06/2025 8:02 PM EDT Diane Guzman MD LAB POINT OF CARE T EST DOCKED DEVICE UNSOLICITED RESULTS Final Result Performing Organization Address City/[facility] Co de Phone Number [facility] [address] [place] [address] * (ABNORMAL) POCT glucose meter (05/06/2025 4:40 PM EDT) [facility] POCT Glucose 212(H) 74 - 99 [...] Comment 05/06/2025 4:46 PM EDT [facility]ALTH[facility]ARE [facility] Sliver Chopper ID Sherrell Navarro 05/06/2025 4:46 PM EDT HEALTHCARE LAB Device ID [id number] 05/06/2025 4:46 PM EDT [facility] Specimen Type POC Capillary 05/06/2025 4:46 PM EDT [facility] Blood Capillary blood specimen / Unknown 05/06/2025 4:40 PM EDT 05/06/2025 4:46 PM EDT Diane Guzman MD LAB POINT OF CARE T EST DOCKED DEVICE UNSOLICITED RESULTS Final Result Performing Organization Address City/[facility]/ZIP Co de Phone Number [facility] [address] [place] [address] * PSA, diagnostic (05/06/2025 12:27 PM EDT) Pathologist [facility] PSA, Diagnostic, Serum 0.03 0.00 - 2.50 ng/mL 05/06/2025 1:10 PM EDT [facility] Blood Venous blood specimen / Unknown Venipuncture / Unknown 05/06/2025 12:27 PM EDT 05/06/2025 12:33 PM EDT Narrative [facility] - 05/06/2025 1:10 PM EDT Performed by Bella electrochemiluminescent immunoassay which is standardized against the PSA Hale Reference Standard (WHO 96/670). Results obtained with different test methods or kits cannot be used interchangeably. Diane Guzman MD LAB BLOOD ORDERABLES Final Result Performing Organization Address City/[facility]/ZIP Co de Phone Number [facility] [address] [place] [address] * (ABNORMAL) POCT glucose meter (05/06/2025 11:28 AM EDT) [facility] POCT Glucose 337(H) 74 - 99 [...] Comment 05/06/2025 11:30 AM EDT [facility]ARE [facility] Sliver Chopper ID Sherrell Navarro 05/06/2025 11:30 AM EDT HEALTHCARE LAB Device ID [id number] 05/06/2025 11:30 AM EDT [facility] Specimen Type POC Capillary 05/06/2025 11:30 AM EDT [facility] Blood Capillary blood specimen / Unknown 05/06/2025 11:28 AM EDT 05/06/2025 11:30 AM EDT Diane Guzman MD LAB POINT OF CARE T EST DOCKED DEVICE UNSOLICITED RESULTS Final Result Performing Organization Address City/[facility]/ZIP Co de Phone Number [facility] [address] [place] [address] * (ABNORMAL) POCT glucose meter (05/06/2025 8:13 AM EDT) [facility] POCT Glucose 348(H) 74 - 99 [...] Comment 05/06/2025 8:23 AM EDT [facility]ALTH[facility]ARE [facility] Sliver Chopper ID Sherrell Navarro 05/06/2025 8:23 AM EDT HEALTHCARE LAB Device ID [id number] 05/06/2025 8:23 AM EDT [facility]ARE [facility] Specimen Type POC Capillary 05/06/2025 8:23 AM EDT [facility] Blood Capillary blood specimen / Unknown 05/06/2025 8:13 AM EDT 05/06/2025 8:23 AM EDT Diane Guzman MD LAB POINT OF CARE T EST DOCKED DEVICE UNSOLICITED RESULTS Final Result [facility] [address] [place] [address] * (ABNORMAL) POCT glucose meter (05/06/2025 3:09 AM EDT) [facility] POCT Glucose 364(H) 74 - 99 [...] Comment 05/06/2025 3:11 AM EDT [facility] Sliver Chopper ID Yessenia Won 05/06/2025 3:11 AM EDT HEALTHCARE LAB Device ID [id number] 05/06/2025 3:11 AM EDT [facility]ARE [facility] Specimen Type POC Capillary 05/06/2025 3:11 AM EDT [facility] Blood Capillary blood specimen / Unknown 05/06/2025 3:09 AM EDT 05/06/2025 3:11 AM EDT Diane Guzman MD LAB POINT OF CARE T EST DOCKED DEVICE UNSOLICITED RESULTS Final Result Performing Organization Address [facility] Co de Phone Number [facility]ARE [facility] [address] [place] [address] * (ABNORMAL) POCT glucose meter (05/05/2025 8:19 PM EDT) [facility] POCT Glucose 324(H) 74 - 99 [...] Comment 05/05/2025 8:20 PM EDT [facility] Sliver Chopper ID Won Casas 05/05/2025 8:20 PM EDT HEALTHCARE LAB Device ID [id number] 05/05/2025 8:20 PM EDT [facility] Specimen Type POC Capillary 05/05/2025 8:20 PM EDT [facility] Blood Capillary blood specimen / Unknown 05/05/2025 8:19 PM EDT 05/05/2025 8:20 PM EDT Diane Guzman MD LAB POINT OF CARE T EST DOCKED DEVICE UNSOLICITED RESULTS Final Result Performing Organization Address City/[facility] Co de Phone Number [facility] [address] [place] [address] * (ABNORMAL) POCT glucose meter (05/05/2025 5:09 PM EDT) [facility] POCT Glucose 371(H) 74 - 99 [...] Comment 05/05/2025 5:14 PM EDT [facility]ARE [facility] Sliver Chopper ID Sherrell Navarro 05/05/2025 5:14 PM EDT HEALTHCARE LAB Device ID [id number] 05/05/2025 5:14 PM EDT [facility]ARE [facility] Specimen Type POC Capillary 05/05/2025 5:14 PM EDT [facility] Blood Capillary blood specimen / Unknown 05/05/2025 5:09 PM EDT 05/05/2025 5:14 PM EDT us Diane Guzman MD LAB POINT OF CARE T EST DOCKED DEVICE UNSOLICITED RESULTS Final Result Performing Organization Address City/State/[facility] Co de Phone Number [facility]ARE [facility] [address] [place] [address] * (ABNORMAL) POCT glucose meter (05/05/2025 11:29 AM EDT) [facility] POCT Glucose 292(H) 74 - 99 mg/dL [...] Comment 05/05/2025 11:32 AM EDT [facility]ARE [facility] Sliver Chopper ID Sherrell Navarro 05/05/2025 11:32 AM EDT HEALTH[facility]ARE LAB Device ID [id number] 05/05/2025 11:32 AM EDT [facility]ARE [facility] Specimen Type POC Capillary 05/05/2025 11:32 AM EDT [facility] Blood Capillary blood specimen / Unknown 05/05/2025 11:29 AM EDT 05/05/2025 11:32 AM EDT us Diane Guzman MD LAB POINT OF CARE T EST DOCKED DEVICE UNSOLICITED RESULTS Final Result Performing Organization Address [facility] Co de Phone Number [facility]ARE [facility] [address] [place] [address] * (ABNORMAL) POCT glucose meter (05/05/2025 7:55 AM EDT) Pathologist [facility] POCT Glucose 290(H) 74 - 99 mg/dL [...] Comment 05/05/2025 7:57 AM EDT [facility] Sliver Chopper ID AkildevinHossein beltranalexandra Black 05/05/2025 7:57 AM EDT HEALTHCARE LAB Device ID [id number] 05/05/2025 7:57 AM EDT [facility]ARE [facility] Specimen Type POC Capillary 05/05/2025 7:57 AM EDT [facility] Blood Capillary blood specimen / Unknown 05/05/2025 7:55 AM EDT 05/05/2025 7:57 AM EDT Diane Guzman MD LAB POINT OF CARE T EST DOCKED DEVICE UNSOLICITED RESULTS Final Result Performing Organization Address [facility] de Phone Number [facility] [address] [place] [address] * (ABNORMAL) POCT glucose meter (05/04/2025 7:35 PM EDT) [facility] POCT Glucose 236(H) 74 - 99 [...] 05/04/2025 7:37 PM EDT [facility] Sliver Chopper ID Kaylin Barron 05/04/2025 7:37 PM EDT HEALTHCARE LAB Device ID [id number] 05/04/2025 7:37 PM EDT HEALTH[facility]ARE [facility] Specimen Type POC Capillary 05/04/2025 7:37 PM EDT [facility] Blood Capillary blood specimen / Unknown 05/04/2025 7:35 PM EDT 05/04/2025 7:37 PM EDT Diane Guzman MD LAB POINT OF CARE T EST DOCKED DEVICE UNSOLICITED RESULTS Final Result Performing Organization Address City/[facility]/ZIP Co de Phone Number [facility] [address] [place] [address] * (ABNORMAL) POCT glucose meter (05/04/2025 4:51 PM EDT) [facility] POCT Glucose 233(H) 74 - 99 [...] Comment 05/04/2025 4:53 PM EDT [facility]ARE [facility] Sliver Chopper ID Araceli Doran 025 4:53 PM EDT HEALTHCARE LAB Device ID [id number] 05/04/2025 4:53 PM EDT HEALTH[facility]ARE LAB Specimen Type POC Capillary 05/04/2025 4:53 PM EDT [facility] Blood Capillary blood specimen / Unknown 05/04/2025 4:51 PM EDT 05/04/2025 4:53 PM EDT us Diane Guzman MD LAB POINT OF CARE T EST DOCKED DEVICE UNSOLICITED RESULTS Final Result Performing Organization Address City/[facility]/ZIP Co de Phone Number [facility] [address] [place] [address] * (ABNORMAL) POCT glucose meter (05/04/2025 11:51 AM EDT) [facility] POCT Glucose 271(H) 74 - 99 [...] Comment 05/04/2025 11:56 AM EDT [facility]ARE [facility] Sliver Chopper ID Araceli Doran 025 11:56 AM EDT HEALTHCARE LAB Device ID [id number] 05/04/2025 11:56 AM EDT [facility]ARE [facility] Specimen Type POC Capillary 05/04/2025 11:56 AM EDT [facility] Blood Capillary blood specimen / Unknown 05/04/2025 11:51 AM EDT 05/04/2025 11:56 AM EDT Diane Guzman MD LAB POINT OF CARE T EST DOCKED DEVICE UNSOLICITED RESULTS Final Result Performing Organization Address City/State/[facility] Co de Phone Number [facility]ARE [facility] [address] [place] [address] * (ABNORMAL) POCT glucose meter (05/04/2025 8:09 AM EDT) [facility] POCT Glucose 259(H) 74 - 99 [...] Comment 05/04/2025 8:17 AM EDT [facility]ARE [facility] Sliver Chopper ID Araceli Doran 025 8:17 AM EDT HEALTHCARE LAB Device ID [id number] 05/04/2025 8:17 AM EDT HEALTHCARE LAB Specimen Type POC Capillary 05/04/2025 8:17 AM EDT [facility]ARE [facility] Blood Capillary blood specimen / Unknown 05/04/2025 8:09 AM EDT 05/04/2025 8:17 AM EDT Diane Guzman MD LAB POINT OF CARE T EST DOCKED DEVICE UNSOLICITED RESULTS Final Result Performing Organization Address [facility] Co de Phone Number [facility] [address] [place] [address] * (ABNORMAL) POCT glucose meter (05/04/2025 4:44 [...] Comment 05/04/2025 4:46 AM EDT [facility]ARE [facility] Sliver Chopper ID Kaylin Barron 05/04/2025 4:46 AM EDT HEALTHCARE LAB Device ID [id number] 05/04/2025 4:46 AM EDT HEALTHCARE [facility] Specimen Type POC Capillary 05/04/2025 4:46 AM EDT [facility] Blood Capillary blood specimen / Unknown 05/04/2025 4:44 AM EDT 05/04/2025 4:46 AM EDT Diane Guzman MD LAB POINT OF CARE T EST DOCKED DEVICE UNSOLICITED RESULTS Final Result Performing Organization Address City/[facility] Co de Phone Number [facility] [address] [place] [address] * (ABNORMAL) POCT glucose meter (05/03/2025 7:27 [...] Comment 05/03/2025 7:33 PM EDT [facility]ALTH[facility]ARE [facility] Sliver Chopper ID Kaylin Barron 05/03/2025 7:33 PM EDT HEALTHCARE LAB Device ID [id number] 05/03/2025 7:33 PM EDT HEALTHCARE [facility] Specimen Type POC Capillary 05/03/2025 7:33 PM EDT [facility]ARE [facility] Blood Capillary blood specimen / Unknown 05/03/2025 7:27 PM EDT 05/03/2025 7:33 PM EDT us Diane Guzman MD LAB POINT OF CARE T EST DOCKED DEVICE UNSOLICITED RESULTS Final Result [facility] [address] [place] [address] * (ABNORMAL) Comprehensive metabolic panel (05/03/2025 6:22 PM EDT) Glucose, Plasma 290(H) 74 - 99 mg/dL 05/03/2025 7:13 PM EDT [facility] BUN, Plasma 14 7 - 21 mg/dL 05/03/2025 7:13 PM EDT [facility] Creatinine, Plasma 0.71 0.70 - 1.20 mg/dL 05/03/2025 7:13 PM EDT [facility] BUN/Creatinine Ratio 20 05/03/2025 7:13 PM EDT [facility] Sodium, Plasma 133(L) 136 - 145 mmol/L 05/03/2025 7:13 PM EDT [facility] Potassium, Plasma 3.6 3.6 - 4.9 mmol/L 05/03/2025 7:13 PM EDT [facility] Chloride, Plasma 87(L) 97 - 107 mmol/L 05/03/2025 7:13 PM EDT [facility] CO2, Plasma 37(H) 22 - 29 mmol/L 05/03/2025 7:13 PM EDT [facility] Anion Gap 9 6 - 16 mmol/L 05/03/2025 7:13 PM EDT [facility] Total Calcium, Plasma 9.4 8.9 - 10.2 mg/dL 05/03/2025 7:13 PM EDT [facility] Total Protein 8.0(H) 6.3 - 7.9 g/dL 05/03/2025 7:13 PM EDT [facility] Albumin, Plasma 3.6 3.5 - 5.2 g/dL 05/03/2025 7:13 PM EDT [facility] AST, Plasma 18 10 - 50 U/L 05/03/2025 7:13 PM EDT [facility] ALT, Plasma 12 10 - 50 U/L 05/03/2025 7:13 PM EDT [facility] Alkaline Phosphatase, Plasma 64 40 - 115 U/L 05/03/2025 7:13 PM EDT [facility] Total Bilirubin, Plasma 0.7 0.2 - 1.1 mg/dL 05/03/2025 7:13 PM EDT [facility] eGFRcr 113.9 mL/min/1.7 3m*2 05/03/2025 7:13 PM EDT [facility] Comment:Reported eGFRcr in m L/min/1.73m2 is based the CKD-EPI 2020 equation that does not use a race coefficient. Blood Venous blood specimen / Unknown Venipuncture / Unknown 05/03/2025 6:22 PM EDT 05/03/2025 6:38 PM EDT Diane uGzman MD LAB BLOOD ORDERABLES Final Result [facility] [address] [place] [address] * Creatine Kinase (CK), Total (05/03/2025 6:22 PM EDT) Creatine Kinase, Plasma 54 49 - 320 U/L 05/03/2025 7:13 PM EDT [facility] Blood Venous blood specimen / Unknown Venipuncture / Unknown 05/03/2025 6:22 PM EDT 05/03/2025 6:38 PM EDT Diane Guzman MD LAB BLOOD ORDERABLES Final Result Performing Organization Address City/[facility] Co de Phone Number [facility] [address] [place] [address] * (ABNORMAL) POCT glucose meter (05/03/2025 5:30 [...] Comment 05/03/2025 5:33 PM EDT HEALTHCARE [facility] Sliver Chopper ID Dunia Montgomery 05/03/2025 5:33 PM EDT HEALTHCARE LAB Device ID [id number] 05/03/2025 5:33 PM EDT [facility] Specimen Type POC Capillary 05/03/2025 5:33 PM EDT [facility] Blood Capillary blood specimen / Unknown 05/03/2025 5:30 PM EDT 05/03/2025 5:33 PM EDT Diane Guzman MD LAB POINT OF CARE T EST DOCKED DEVICE UNSOLICITED RESULTS Final Result Performing Organization Address City/[facility] Co de Phone Number [facility]ARE [facility] [address] [place] [address] * (ABNORMAL) POCT glucose meter (05/03/2025 11:36 [...] Comment 05/03/2025 11:38 AM EDT [facility]ALTHCARE [facility] Sliver Chopper ID Kindra Cardoza 05/03/2025 11:38 AM EDT HEALTHCARE LAB Device ID [id number] 05/03/2025 11:38 AM EDT HEALTHCARE LAB Specimen Type POC Capillary 05/03/2025 11:38 AM EDT [facility]ALTH[facility]ARE [facility] Blood Capillary blood specimen / Unknown 05/03/2025 11:36 AM EDT 05/03/2025 11:38 AM EDT Diane Guzman MD LAB POINT OF CARE T EST DOCKED DEVICE UNSOLICITED RESULTS Final Result Performing Organization Address City/[facility] Co de Phone Number [facility]ARE [facility] [address] [place] [address] * (ABNORMAL) POCT glucose meter (05/03/2025 8:09 [...] Comment 05/03/2025 8:11 AM EDT HEALTHCARE [facility] Sliver Chopper ID Dunia Montgomery 05/03/2025 8:11 AM EDT HEALTHCARE LAB Device ID [id number] 05/03/2025 8:11 AM EDT HEALTHCARE LAB Specimen Type POC Capillary 05/03/2025 8:11 AM EDT [facility]ALTH[facility]ARE [facility] Blood Capillary blood specimen / Unknown 05/03/2025 8:09 AM EDT 05/03/2025 8:11 AM EDT Diane Guzman MD LAB POINT OF CARE T EST DOCKED DEVICE UNSOLICITED RESULTS Final Result Performing Organization Address City/[facility]/ZIP Co de Phone Number [facility]ARE [facility] [address] [place] [address] * (ABNORMAL) POCT glucose meter (05/03/2025 3:37 AM EDT) [facility] POCT Glucose 372(H) 74 - 99 mg/dL [...] Comment 05/03/2025 3:40 AM EDT [facility]ALTHCARE [facility] Sliver Chopper ID Maribell Saeed 3:40 AM EDT HEALTHCARE LAB Device ID [id number] 05/03/2025 3:40 AM EDT [facility] Specimen Type POC Capillary 05/03/2025 3:40 AM EDT [facility] Blood Capillary blood specimen / Unknown 05/03/2025 3:37 AM EDT 05/03/2025 3:40 AM EDT Diane Guzman MD LAB POINT OF CARE T EST DOCKED DEVICE UNSOLICITED RESULTS Final Result Performing Organization Address City/State/[facility] Co de Phone Number HE[facility]ARE [facility] [address] [place] [address] * (ABNORMAL) CBC and Differential (05/03/2025 3:16 AM EDT) [facility] WBC Count 6.86 3.70 - 10.30 10*3/uL LAB HEMATOLOGY METHOD 05/03/2025 3:33 AM EDT [facility] RBC Count 3.82(L) 4.60 - 6.10 10*6/uL LAB HEMATOLOGY METHOD 05/03/2025 3:33 AM EDT [facility] HGB 8.9(L) 13.7 - 17.5 g/dL LAB HEMATOLOGY METHOD 05/03/2025 3:33 AM EDT [facility] HCT 29.2(L) 40.0 - 51.0 % LAB HEMATOLOGY METHOD 05/03/2025 3:33 AM EDT [facility] Platelet Count 202 155 - 369 10*3/uL LAB HEMATOLOGY METHOD 05/03/2025 3:33 AM EDT [facility] MCV 76(L) 79 - 98 fL LAB HEMATOLOGY METHOD 05/03/2025 3:33 AM EDT [facility] MCH 23.3(L) 26.0 - 32.0 pg LAB HEMATOLOGY METHOD 05/03/2025 3:33 AM EDT [facility] MCHC 30.5(L) 30.7 - 35.5 g/dL LAB HEMATOLOGY METHOD 05/03/2025 3:33 AM EDT [facility] RDW 18.8(H) 11.5 - 14.5 % LAB HEMATOLOGY METHOD 05/03/2025 3:33 AM EDT [facility] MPV 9.1 8.8 - 12.5 fL LAB HEMATOLOGY METHOD 05/03/2025 3:33 AM EDT [facility] nRBC 0.0 <=0.0 per 100 WBCs LAB HEMATOLOGY METHOD 05/03/2025 3:33 AM EDT [facility] Differential Type Automated LAB HEMATOLOGY METHOD 05/03/2025 3:33 AM EDT [facility] Neutrophils % 70 % LAB HEMATOLOGY METHOD 05/03/2025 3:33 AM EDT [facility] Lymphocytes % 15 % LAB HEMATOLOGY METHOD 05/03/2025 3:33 AM EDT [facility] Monocytes % 9 % LAB HEMATOLOGY METHOD 05/03/2025 3:33 AM EDT [facility] Eosinophils % 5 % LAB HEMATOLOGY METHOD 05/03/2025 3:33 AM EDT [facility] Basophils % 0 % LAB HEMATOLOGY METHOD 05/03/2025 3:33 AM EDT [facility] Immature Granulocytes % 1 % LAB HEMATOLOGY METHOD 05/03/2025 3:33 AM EDT [facility] Neutrophils Absolute 4.85 1.60 - 6.10 10*3/uL LAB HEMATOLOGY METHOD 05/03/2025 3:33 AM EDT [facility] Lymphocytes Absolute 1.03(L) 1.20 - 3.90 10*3/uL LAB HEMATOLOGY METHOD 05/03/2025 3:33 AM EDT [facility] Monocytes Absolute 0.59 0.30 - 0.90 10*3/uL LAB HEMATOLOGY METHOD 05/03/2025 3:33 AM EDT [facility] Eosinophils Absolute 0.32 0.00 - 0.50 10*3/uL LAB HEMATOLOGY METHOD 05/03/2025 3:33 AM EDT [facility] Basophils Absolute 0.03 0.00 - 0.10 10*3/uL LAB HEMATOLOGY METHOD 05/03/2025 3:33 AM EDT [facility] Immature Granulocytes Absolute 0.04 0.00 - 0.06 10*3/uL LAB HEMATOLOGY METHOD 05/03/2025 3:33 AM EDT [facility] Blood Venous blood specimen / Unknown Venipuncture / Unknown 05/03/2025 3:16 AM EDT 05/03/2025 3:25 AM EDT Narrative [facility] - 05/03/2025 3:33 AM EDT Therapeutic decision making should be based on absolute values, rather than percentages. us Marjorie Myers MD LAB BLOOD ORDERABLES Final Resul t [facility] [address] [place] [address] * (ABNORMAL) Basic Metabolic Panel, Plasma (05/03/2025 3:16 AM EDT) Glucose, Plasma 399(H) 74 - 99 mg/dL 05/03/2025 4:02 AM EDT [facility] BUN, Plasma 15 7 - 21 mg/dL 05/03/2025 4:02 AM EDT [facility] Creatinine, Plasma 0.78 0.70 - 1.20 mg/dL 05/03/2025 4:02 AM EDT [facility] BUN/Creatinine Ratio 19 05/03/2025 4:02 AM EDT [facility] Sodium, Plasma 136 136 - 145 mmol/L 05/03/2025 4:02 AM EDT [facility] Potassium, Plasma 3.6 3.6 - 4.9 mmol/L 05/03/2025 4:02 AM EDT [facility] Chloride, Plasma 90(L) 97 - 107 mmol/L 05/03/2025 4:02 AM EDT [facility] CO2, Plasma 37(H) 22 - 29 mmol/L 05/03/2025 4:02 AM EDT [facility] Anion Gap 9 6 - 16 mmol/L 05/03/2025 4:02 AM EDT [facility] Total Calcium, Plasma 9.0 8.9 - 10.2 mg/dL 05/03/2025 4:02 AM EDT [facility] eGFRcr 110.7 mL/min/1.7 3m*2 05/03/2025 4:02 AM EDT [facility] Comment:Reported eGFRcr in m L/min/1.73m2 is based the CKD-EPI 2020 equation that does not use a race coefficient. Blood Venous blood specimen / Unknown Venipuncture / Unknown 05/03/2025 3:16 AM EDT 05/03/2025 3:24 AM EDT us Marjorie Myers MD LAB BLOOD ORDERABLES Final Resul t Performing Organization Address City/[facility]/ZIP Co de Phone Number [facility] [address] [place] [address] * (ABNORMAL) Magnesium, Plasma (05/03/2025 3:16 AM EDT) Magnesium, Plasma 1.7(L) 1.9 - 2.4 mg/dL 05/03/2025 4:02 AM EDT [facility] Blood Venous blood specimen / Unknown Venipuncture / Unknown 05/03/2025 3:16 AM EDT 05/03/2025 3:24 AM EDT us Marjorie Myers MD LAB BLOOD ORDERABLES Final Resul t [facility] [address] [place] [address] * Phosphorus, Plasma (05/03/2025 3:16 AM EDT) Phosphorus, Plasma 3.6 2.5 - 4.5 mg/dL 05/03/2025 4:02 AM EDT [facility] Blood Venous blood specimen / Unknown Venipuncture / Unknown 05/03/2025 3:16 AM EDT 05/03/2025 3:24 AM EDT Marjorie Myers MD LAB BLOOD ORDERABLES Final Resul t Performing Organization Address City/[facility] Co de Phone Number [facility] [address] [place] [address] * Hepatitis B Core Total Antibody IgG,IgM (05/03/2025 3:16 AM EDT) Hepatitis B Core Total Antibody IgG,IgM Negative Negative 05/03/2025 4:28 AM EDT [facility] Blood Venous blood specimen / Unknown Venipuncture / Unknown 05/03/2025 3:16 AM EDT 05/03/2025 3:24 AM EDT Diane Guzman MD LAB BLOOD ORDERABLES Final Result Performing Organization Address [facility] [place] [address] * Hepatitis B Surface Antigen (05/03/2025 3:16 AM EDT) Hepatitis B Surf Antigen Negative Negative 05/03/2025 4:28 AM EDT [facility] Blood Venous blood specimen / Unknown Venipuncture / Unknown 05/03/2025 3:16 AM EDT 05/03/2025 3:24 AM EDT Diane Guzman MD LAB BLOOD ORDERABLES Final Result Performing Organization Address City/[facility] Co de Phone Number [facility] [address] [place] [address] * Hepatitis B Surface Antibody, Quantitative (05/03/2025 3:16 AM EDT) Hepatitis B Surface Antibody, Quantitative <8.00 NonReactiv e: <8, Grayzone: 8 - <12, Reactive: >= 12 mIU/mL 05/03/2025 4:28 AM EDT [facility] Comment: Nonreactive. Individual is considered not immune to HBV infection. Blood Venous blood specimen / Unknown Venipuncture / Unknown 05/03/2025 3:16 AM EDT 05/03/2025 3:24 AM EDT Result Shannon Guzman MD LAB BLOOD ORDERABLES Final Result Performing Organization Address City/[facility]/ZIP Co de Phone Number [facility] [address] [place] [address] * Hepatitis A Antibody IgG (05/03/2025 3:16 AM EDT) [facility] Hepatitis A Antibody IgG Negative Negative 05/03/2025 4:28 AM EDT [facility] Blood Venous blood specimen / Unknown Venipuncture / Unknown 05/03/2025 3:16 AM EDT 05/03/2025 3:24 AM EDT us Diane Guzman MD LAB BLOOD ORDERABLES Final Result Performing Organization Address [facility] Phone Number [facility] [address] [place] [address] * (ABNORMAL) POCT glucose meter (05/02/2025 8:48 PM EDT) [facility] POCT Glucose 325(H) 74 - 99 [...] 05/02/2025 8:50 PM EDT [facility] Sliver Chopper ID Maribell Saeed 8:50 PM EDT [facility] Device ID [id number] 05/02/2025 8:50 PM EDT [facility] Specimen Type POC Capillary 05/02/2025 8:50 PM EDT [facility] Blood Capillary blood specimen / Unknown 05/02/2025 8:48 PM EDT 05/02/2025 8:50 PM EDT us Diane Guzman MD LAB POINT OF CARE T EST DOCKED DEVICE UNSOLICITED RESULTS Final Result Performing Organization Address City/[facility] Co de Phone Number [facility] [address] [place] [address] * (ABNORMAL) POCT glucose meter (05/02/2025 4:30 PM EDT) [facility] POCT Glucose 250(H) 74 - 99 [...] for testing. Comment 05/02/2025 4:32 PM EDT [facility] Sliver Chopper ID Sebastián Kenny 4:32 PM EDT [facility] Device ID [id number] 05/02/2025 4:32 PM EDT [facility] Specimen Type POC Capillary 05/02/2025 4:32 PM EDT [facility] Blood Capillary blood specimen / Unknown 05/02/2025 4:30 PM EDT 05/02/2025 4:32 PM EDT Diane Guzman MD LAB POINT OF CARE T EST DOCKED DEVICE UNSOLICITED RESULTS Final Result Performing Organization Address City/[facility]/ZIP Co de Phone Number [facility] [address] [place] [address] * Nasopharyngeal Respiratory Panel (05/02/2025 1:05 PM EDT) [facility] Nasopharyngeal Respiratory PCR Interpretation Not Detected for all analytes Not Detected for all analytes 05/02/2025 3:14 PM EDT [facility] Swab Nasopharyngeal structure / Unknown Non-blood Collection / Unknown 05/02/2025 1:05 PM EDT 05/02/2025 1:12 PM EDT Narrative [facility] - 05/02/2025 3:14 PM EDT [...] Respiratory PCR Panel is performed using the [employer] instrument. This test is FDA approved for use with Nasopharyngeal swabs only. This test is used for clinical purposes. It should not be regarded as investigational or for research. The [facility] Clinical Microbiology Laboratory is certified under the Clinical Laboratory Improvement Amendments of 1988 (CLIA-88) as qualified to perform high complexity clinical laboratory testing. Diane Guzman MD LAB MICROBIOLOGY - GENERAL ORDERABLES Final Result [facility] [address] [place] [address] * (ABNORMAL) POCT glucose meter (05/02/2025 12:08 PM EDT) POCT Glucose 278(H) 74 - 99 mg/dL 05/02/2025 12:10 PM EDT [facility] Comment:Accuracy of a glucos e result [...] for testing. Comment 05/02/2025 12:10 PM EDT [facility] Sliver Chopper ID Sebastián Kenny 12:10 PM EDT [facility] Device ID [id number] 05/02/2025 12:10 PM EDT [facility] Specimen Type POC Capillary 05/02/2025 12:10 PM EDT [facility] Blood Capillary blood specimen / Unknown 05/02/2025 12:08 PM EDT 05/02/2025 12:10 PM EDT us Diane Guzman MD LAB POINT OF CARE T EST DOCKED DEVICE UNSOLICITED RESULTS Final Result Performing Organization Address City/[facility] Co de Phone Number [facility] [address] [place] [address] * (ABNORMAL) POCT glucose meter (05/02/2025 8:11 [...] for testing. Comment 05/02/2025 8:12 AM EDT [facility] Sliver Chopper ID Sebastián Kenny 8:12 AM EDT [facility] Device ID [id number] 05/02/2025 8:12 AM EDT [facility] Specimen Type POC Capillary 05/02/2025 8:12 AM EDT [facility] Blood Capillary blood specimen / Unknown 05/02/2025 8:11 AM EDT 05/02/2025 8:12 AM EDT Diane Guzman MD LAB POINT OF CARE T EST DOCKED DEVICE UNSOLICITED RESULTS Final Result Performing Organization Address City/[facility] Co de Phone Number [facility] [address] [place] [address] * (ABNORMAL) POCT glucose meter (05/02/2025 4:01 [...] Comment 05/02/2025 4:03 AM EDT [facility] Sliver Chopper ID Stella Coleman 05/02/20 4:03 AM EDT [facility] LAB Device ID [id number] 05/02/2025 4:03 AM EDT [facility] Specimen Type POC Capillary 05/02/2025 4:03 AM EDT [facility] Blood Capillary blood specimen / Unknown 05/02/2025 4:01 AM EDT 05/02/2025 4:03 AM EDT us Marjorie Myers MD LAB POINT OF CARE TE ST DOCKED DEVICE UNSOLICITED RESULTS Final Result [facility] [address] [place] [id number] * (ABNORMAL) CBC and Differential (05/02/2025 3:10 AM EDT) WBC Count 7.39 3.70 - 10.30 10*3/uL LAB HEMATOLOGY METHOD 05/02/2025 3:23 AM EDT [facility] RBC Count 3.88(L) 4.60 - 6.10 10*6/uL LAB HEMATOLOGY METHOD 05/02/2025 3:23 AM EDT [facility] HGB 8.8(L) 13.7 - 17.5 g/dL LAB HEMATOLOGY METHOD 05/02/2025 3:23 AM EDT [facility] HCT 29.3(L) 40.0 - 51.0 % LAB HEMATOLOGY METHOD 05/02/2025 3:23 AM EDT [facility] Platelet Count 205 155 - 369 10*3/uL LAB HEMATOLOGY METHOD 05/02/2025 3:23 AM EDT [facility] MCV 76(L) 79 - 98 fL LAB HEMATOLOGY METHOD 05/02/2025 3:23 AM EDT [facility] MCH 22.7(L) 26.0 - 32.0 pg LAB HEMATOLOGY METHOD 05/02/2025 3:23 AM EDT [facility] MCHC 30.0(L) 30.7 - 35.5 g/dL LAB HEMATOLOGY METHOD 05/02/2025 3:23 AM EDT [facility] RDW 19.1(H) 11.5 - 14.5 % LAB HEMATOLOGY METHOD 05/02/2025 3:23 AM EDT [facility] MPV 8.5(L) 8.8 - 12.5 fL LAB HEMATOLOGY METHOD 05/02/2025 3:23 AM EDT [facility] nRBC 0.0 <=0.0 per 100 WBCs LAB HEMATOLOGY METHOD 05/02/2025 3:23 AM EDT [facility] Differential Type Automated LAB HEMATOLOGY METHOD 05/02/2025 3:23 AM EDT [facility] Neutrophils % 74 % LAB HEMATOLOGY METHOD 05/02/2025 3:23 AM EDT [facility] Lymphocytes % 13 % LAB HEMATOLOGY METHOD 05/02/2025 3:23 AM EDT [facility] Monocytes % 8 % LAB HEMATOLOGY METHOD 05/02/2025 3:23 AM EDT [facility] Eosinophils % 4 % LAB HEMATOLOGY METHOD 05/02/2025 3:23 AM EDT [facility] Basophils % 0 % LAB HEMATOLOGY METHOD 05/02/2025 3:23 AM EDT [facility] Immature Granulocytes % 1 % LAB HEMATOLOGY METHOD 05/02/2025 3:23 AM EDT [facility] Neutrophils Absolute 5.45 1.60 - 6.10 10*3/uL LAB HEMATOLOGY METHOD 05/02/2025 3:23 AM EDT [facility] Lymphocytes Absolute 0.96(L) 1.20 - 3.90 10*3/uL LAB HEMATOLOGY METHOD 05/02/2025 3:23 AM EDT [facility] Monocytes Absolute 0.62 0.30 - 0.90 10*3/uL LAB HEMATOLOGY METHOD 05/02/2025 3:23 AM EDT [facility] Eosinophils Absolute 0.30 0.00 - 0.50 10*3/uL LAB HEMATOLOGY METHOD 05/02/2025 3:23 AM EDT [facility] Basophils Absolute 0.01 0.00 - 0.10 10*3/uL LAB HEMATOLOGY METHOD 05/02/2025 3:23 AM EDT [facility] Immature Granulocytes Absolute 0.05 0.00 - 0.06 10*3/uL LAB HEMATOLOGY METHOD 05/02/2025 3:23 AM EDT [facility] Blood Venous blood specimen / Unknown Venipuncture / Unknown 05/02/2025 3:10 AM EDT 05/02/2025 3:14 AM EDT Narrative [facility] - 05/02/2025 3:23 AM EDT Therapeutic decision making should be based on absolute values, rather than percentages. us Marjorie Myers MD LAB BLOOD ORDERABLES Final Resul t [facility] [address] [place] [address] * (ABNORMAL) Basic Metabolic Panel, Plasma (05/02/2025 3:10 AM EDT) Glucose, Plasma 358(H) 74 - 99 mg/dL 05/02/2025 3:45 AM EDT [facility] BUN, Plasma 12 7 - 21 mg/dL 05/02/2025 3:45 AM EDT [facility] Creatinine, Plasma 0.73 0.70 - 1.20 mg/dL 05/02/2025 3:45 AM EDT [facility] BUN/Creatinine Ratio 16 05/02/2025 3:45 AM EDT [facility] Sodium, Plasma 134(L) 136 - 145 mmol/L 05/02/2025 3:45 AM EDT [facility] Potassium, Plasma 3.3(L) 3.6 - 4.9 mmol/L 05/02/2025 3:45 AM EDT [facility] Chloride, Plasma 90(L) 97 - 107 mmol/L 05/02/2025 3:45 AM EDT [facility] CO2, Plasma 37(H) 22 - 29 mmol/L 05/02/2025 3:45 AM EDT [facility] Anion Gap 7 6 - 16 mmol/L 05/02/2025 3:45 AM EDT [facility] Total Calcium, Plasma 8.7(L) 8.9 - 10.2 mg/dL 05/02/2025 3:45 AM EDT [facility] eGFRcr 112.9 mL/min/1.7 3m*2 05/02/2025 3:45 AM EDT [facility] Comment:Reported eGFRcr in m L/min/1.73m2 is based the CKD-EPI 2020 equation that does not use a race coefficient. Blood Venous blood specimen / Unknown Venipuncture / Unknown 05/02/2025 3:10 AM EDT 05/02/2025 3:15 AM EDT us Marjorie Myers MD LAB BLOOD ORDERABLES Final Resul t Performing Organization Address City/[facility]/ZIP Co de Phone Number [facility] [address] [place] [address] * (ABNORMAL) Magnesium, Plasma (05/02/2025 3:10 AM EDT) Magnesium, Plasma 1.6(L) 1.9 - 2.4 mg/dL 05/02/2025 3:45 AM EDT [facility] Blood Venous blood specimen / Unknown Venipuncture / Unknown 05/02/2025 3:10 AM EDT 05/02/2025 3:15 AM EDT us Marjorie Myers MD LAB BLOOD ORDERABLES Final Resul t Performing Organization Address City/[facility]/ZIP Co de Phone Number [facility] [address] [place] [address] * Phosphorus, Plasma (05/02/2025 3:10 AM EDT) Phosphorus, Plasma 3.0 2.5 - 4.5 mg/dL 05/02/2025 3:45 AM EDT [facility] Blood Venous blood specimen / Unknown Venipuncture / Unknown 05/02/2025 3:10 AM EDT 05/02/2025 3:15 AM EDT us Marjorie Myers MD LAB BLOOD ORDERABLES Final Resul t Performing Organization Address City/[facility]/ZIP Co de Phone Number [facility] [address] [place] [address] * Creatine Kinase (CK), Total (05/02/2025 3:10 AM EDT) Creatine Kinase, Plasma 50 49 - 320 U/L 05/02/2025 3:45 AM EDT [facility] Blood Venous blood specimen / Unknown Venipuncture / Unknown 05/02/2025 3:10 AM EDT 05/02/2025 3:15 AM EDT Marjorie Myers MD LAB BLOOD ORDERABLES Final Resul t Performing Organization Address City/[facility]/ZIP Co de Phone Number [facility] [address] [place] [address] * (ABNORMAL) POCT glucose meter (05/01/2025 8:26 [...] Comment 05/01/2025 8:27 PM EDT [facility] Sliver Chopper ID Stella Coleman 05/01/20 8:27 PM EDT [facility] Device ID [id number] 05/01/2025 8:27 PM EDT [facility] Specimen Type POC Capillary 05/01/2025 8:27 PM EDT [facility] Blood Capillary blood specimen / Unknown 05/01/2025 8:26 PM EDT 05/01/2025 8:27 PM EDT us Marjorie Myers MD LAB POINT OF CARE TE ST DOCKED DEVICE UNSOLICITED RESULTS Final Result [facility] [address] [place] [address] * (ABNORMAL) POCT glucose meter (05/01/2025 5:55 [...] 05/01/2025 5:57 PM EDT [facility] Sliver Chopper ID Efraín, Sebastián Ocasio 5:57 PM EDT [facility] Device ID [id number] 05/01/2025 5:57 PM EDT [facility] Specimen Type POC Capillary 05/01/2025 5:57 PM EDT [facility] Blood Capillary blood specimen / Unknown 05/01/2025 5:55 PM EDT 05/01/2025 5:57 PM EDT Marjorie Myers MD LAB POINT OF CARE TE ST DOCKED DEVICE UNSOLICITED RESULTS Final Result Performing Organization Address City/State/[facility] Co de Phone Number [facility] [address] [place] [address] * (ABNORMAL) POCT glucose meter (05/01/2025 11:51 AM EDT) [facility] Signature POCT Glucose 301(H) 74 - 99 mg/dL [...] 05/01/2025 11:53 AM EDT [facility] Sliver Chopper ID EfraínSebastián 11:53 AM EDT [facility] Device ID [id number] 05/01/2025 11:53 AM EDT [facility] Specimen Type POC Capillary 05/01/2025 11:53 AM EDT [facility] Blood Capillary blood specimen / Unknown 05/01/2025 11:51 AM EDT 05/01/2025 11:53 AM EDT Marjorie Myers MD LAB POINT OF CARE TE ST DOCKED DEVICE UNSOLICITED RESULTS Final Result Performing Organization Address [facility] de Phone Number [facility] [address] [place] [address] * (ABNORMAL) POCT glucose meter (05/01/2025 9:13 AM EDT) POCT Glucose 252(H) 74 - 99 mg/dL 05/01/2025 9:15 AM EDT [facility] Comment:Accuracy of a glucos e result [...] for testing. Comment 05/01/2025 9:15 AM EDT [facility] Sliver Chopper ID Francisco Javier Martin 05/01/2025 9:15 AM EDT [facility] Device ID [id number] 05/01/2025 9:15 AM EDT [facility] Specimen Type POC Capillary 05/01/2025 9:15 AM EDT [facility] Blood Capillary blood specimen / Unknown 05/01/2025 9:13 AM EDT 05/01/2025 9:15 AM EDT Marjorie Myers MD LAB POINT OF CARE TE ST DOCKED DEVICE UNSOLICITED RESULTS Final Result Performing Organization Address City/[facility] de Phone Number [facility] [address] [place] [address] * Surgical Pathology Exam (05/01/2025 8:13 AM EDT) Case Report Surgical Pathology Case: [id number] Authorizing Provider: Mary Vicente MD Collected: 05/01/2025 0813 Ordering Location: [facility] Received: 05/01/2025 0917 Pathologist: Vidya Ly MD Specimens: A) - Toe, Right, R 5th toe B) - Toe, Right, R 5th toe margin 05/09/2025 9:56 AM EDT [facility] Correction History Case amended to provide diagnosis after final decal sections received 05/09/2025 9:56 AM EDT [facility] Comment:These results have b een appended to a previously final verified report. Final Diagnosis A. RIGHT FIFTH TOE, AMPUTATION: - ULCER WITH SUPPURATIVE INFLAMMATION, GANGRENOUS NECROSIS, AND UNDERLYING ACUTE OSTEOMYELITIS. B. RIGHT FIFTH TOE MARGIN, RESECTION: - NO ACUTE OSTEOMYELITIS IDENTIFIED. 05/09/2025 9:56 AM EDT [facility] Amendment electronically signed by Vidya Ly MD on 05/09/2025 at 0956 EDT at 1233 EDT Comment:Corrected result: Pr eviously reported as [Previous value contains rich text formatting which cannot be displayed here] (see Result History) on 05/05/2025 at 1233 EDT. Clinical Information Other chronic osteomyelitis of right foot ([facility]) [M86.671] 05/09/2025 9:56 AM EDT [facility] Gross Description A. R 5TH [...] The wound extends into the underlying bone. Project Management Engineer sections are submitted as follows: A1-A2: Necrotic lateral skin A3: Bone underlying gaping wound, following decalcification A4: Bone margin, following decalcification BLAS Kwok (ASCP) B. R 5TH TOE MARGIN The specimen is received fresh and placed in formalin, labeled R 5th toe MARGIN , and consists of a 2.8 x 2.8 x 0.6 cm aggregate of hemorrhagic bony fragments. The specimen is entirely submitted in cassette B1, following decalcification. Cold Time: 25m BLAS Kwok (ASCP) 05/09/2025 9:56 AM EDT [facility] Note: 05/09/2025 9:56 AM EDT [facility] Comment:Corrected result: Pr eviously reported [...] Edited Result - Final Performing Organization Address City/[facility]/ZIP Co de Phone Number [facility] [address] [place] [address] * Type and Screen (05/01/2025 6:49 AM EDT) Pathologist [facility] ABO/Rh O Positive 05/01/2025 6:53 AM EDT BLOOD BANK Antibody Screen Negative 05/01/2025 6:53 AM EDT BLOOD BANK Specimen Expiration 05/04/2025 23:59 05/01/2025 6:53 AM EDT BLOOD BANK Blood Venous blood specimen / Unknown Venipuncture / Unknown 05/01/2025 6:49 AM EDT 05/01/2025 6:53 AM EDT Yanna Calhoun DO LAB BLOOD BANK TEST ORDERA BLES Final Result Performing Organization Address [facility] Co de Phone Number BLOOD BANK [address] * (ABNORMAL) POCT glucose meter (05/01/2025 6:48 AM EDT) POCT Glucose 222(H) 74 - 99 mg/dL 05/01/2025 6:50 AM EDT [facility] Comment:Accuracy of a glucos e result [...] Comment 05/01/2025 6:50 AM EDT [facility] Sliver Chopper ID Emelina Romero 6:50 AM EDT HEALTHCARE LAB Device ID [id number] 05/01/2025 6:50 AM EDT [facility]ALTH[facility]ARE LAB Specimen Type POC Venous 05/01/2025 6:50 AM EDT [facility] Blood Venous blood specimen / Unknown 05/01/2025 6:48 AM EDT 05/01/2025 6:50 AM EDT us Marjorie Myers MD LAB POINT OF CARE TE ST DOCKED DEVICE UNSOLICITED RESULTS Final Result Performing Organization Address City/[facility]/ZIP Co de Phone Number [facility] [address] [place] [address] * Creatine Kinase (CK), Total (05/01/2025 2:14 AM EDT) Creatine Kinase, Plasma 60 49 - 320 U/L 05/01/2025 2:53 AM EDT [facility] Blood Venous blood specimen / Unknown Venipuncture / Unknown 05/01/2025 2:14 AM EDT 05/01/2025 2:26 AM EDT us Marjorie Myers MD LAB BLOOD ORDERABLES Final Resul t [facility] [address] [place] [address] * (ABNORMAL) CBC and Differential (05/01/2025 2:14 AM EDT) WBC Count 6.96 3.70 - 10.30 10*3/uL LAB HEMATOLOGY METHOD 05/01/2025 2:37 AM EDT [facility] RBC Count 4.23(L) 4.60 - 6.10 10*6/uL LAB HEMATOLOGY METHOD 05/01/2025 2:37 AM EDT [facility] HGB 9.8(L) 13.7 - 17.5 g/dL LAB HEMATOLOGY METHOD 05/01/2025 2:37 AM EDT [facility] HCT 32.5(L) 40.0 - 51.0 % LAB HEMATOLOGY METHOD 05/01/2025 2:37 AM EDT [facility] Platelet Count 218 155 - 369 10*3/uL LAB HEMATOLOGY METHOD 05/01/2025 2:37 AM EDT [facility] MCV 77(L) 79 - 98 fL LAB HEMATOLOGY METHOD 05/01/2025 2:37 AM EDT [facility] MCH 23.2(L) 26.0 - 32.0 pg LAB HEMATOLOGY METHOD 05/01/2025 2:37 AM EDT [facility] MCHC 30.2(L) 30.7 - 35.5 g/dL LAB HEMATOLOGY METHOD 05/01/2025 2:37 AM EDT [facility] RDW 19.1(H) 11.5 - 14.5 % LAB HEMATOLOGY METHOD 05/01/2025 2:37 AM EDT [facility] MPV 8.4(L) 8.8 - 12.5 fL LAB HEMATOLOGY METHOD 05/01/2025 2:37 AM EDT [facility] nRBC 0.0 <=0.0 per 100 WBCs LAB HEMATOLOGY METHOD 05/01/2025 2:37 AM EDT [facility] Differential Type Automated LAB HEMATOLOGY METHOD 05/01/2025 2:37 AM EDT [facility] Neutrophils % 76 % LAB HEMATOLOGY METHOD 05/01/2025 2:37 AM EDT [facility] Lymphocytes % 11 % LAB HEMATOLOGY METHOD 05/01/2025 2:37 AM EDT [facility] Monocytes % 8 % LAB HEMATOLOGY METHOD 05/01/2025 2:37 AM EDT [facility] Eosinophils % 4 % LAB HEMATOLOGY METHOD 05/01/2025 2:37 AM EDT [facility] Basophils % 0 % LAB HEMATOLOGY METHOD 05/01/2025 2:37 AM EDT [facility] Immature Granulocytes % 1 % LAB HEMATOLOGY METHOD 05/01/2025 2:37 AM EDT [facility] Neutrophils Absolute 5.26 1.60 - 6.10 10*3/uL LAB HEMATOLOGY METHOD 05/01/2025 2:37 AM EDT [facility] Lymphocytes Absolute 0.79(L) 1.20 - 3.90 10*3/uL LAB HEMATOLOGY METHOD 05/01/2025 2:37 AM EDT [facility] Monocytes Absolute 0.57 0.30 - 0.90 10*3/uL LAB HEMATOLOGY METHOD 05/01/2025 2:37 AM EDT [facility] Eosinophils Absolute 0.28 0.00 - 0.50 10*3/uL LAB HEMATOLOGY METHOD 05/01/2025 2:37 AM EDT [facility] Basophils Absolute 0.02 0.00 - 0.10 10*3/uL LAB HEMATOLOGY METHOD 05/01/2025 2:37 AM EDT [facility] Immature Granulocytes Absolute 0.04 0.00 - 0.06 10*3/uL LAB HEMATOLOGY METHOD 05/01/2025 2:37 AM EDT [facility] Blood Venous blood specimen / Unknown Venipuncture / Unknown 05/01/2025 2:14 AM EDT 05/01/2025 2:26 AM EDT Narrative [facility] - 05/01/2025 2:37 AM EDT Therapeutic decision making should be based on absolute values, rather than percentages. Marjorie Myers MD LAB BLOOD ORDERABLES Final Resul t [facility] [address] [place] [address] * (ABNORMAL) Basic Metabolic Panel, Plasma (05/01/2025 2:14 AM EDT) Glucose, Plasma 266(H) 74 - 99 mg/dL 05/01/2025 2:53 AM EDT [facility] BUN, Plasma 9 7 - 21 mg/dL 05/01/2025 2:53 AM EDT [facility] Creatinine, Plasma 0.71 0.70 - 1.20 mg/dL 05/01/2025 2:53 AM EDT [facility] BUN/Creatinine Ratio 13 05/01/2025 2:53 AM EDT [facility] Sodium, Plasma 137 136 - 145 mmol/L 05/01/2025 2:53 AM EDT [facility] Potassium, Plasma 3.4(L) 3.6 - 4.9 mmol/L 05/01/2025 2:53 AM EDT [facility] Chloride, Plasma 91(L) 97 - 107 mmol/L 05/01/2025 2:53 AM EDT [facility] CO2, Plasma 36(H) 22 - 29 mmol/L 05/01/2025 2:53 AM EDT [facility] Anion Gap 10 6 - 16 mmol/L 05/01/2025 2:53 AM EDT [facility] Total Calcium, Plasma 8.6(L) 8.9 - 10.2 mg/dL 05/01/2025 2:53 AM EDT [facility] eGFRcr 113.9 mL/min/1.7 3m*2 05/01/2025 2:53 AM EDT [facility] Comment:Reported eGFRcr in m L/min/1.73m2 is based the CKD-EPI 2020 equation that does not use a race coefficient. Blood Venous blood specimen / Unknown Venipuncture / Unknown 05/01/2025 2:14 AM EDT 05/01/2025 2:26 AM EDT us Marjorie Myers MD LAB BLOOD ORDERABLES Final Resul t Performing Organization Address City/[facility]/ZIP Co de Phone Number [facility] [address] [place] [address] * (ABNORMAL) Magnesium, Plasma (05/01/2025 2:14 AM EDT) Magnesium, Plasma 1.8(L) 1.9 - 2.4 mg/dL 05/01/2025 2:53 AM EDT [facility] Blood Venous blood specimen / Unknown Venipuncture / Unknown 05/01/2025 2:14 AM EDT 05/01/2025 2:26 AM EDT us Marjorie Myers MD LAB BLOOD ORDERABLES Final Resul t [facility] [address] [place] [address] * Phosphorus, Plasma (05/01/2025 2:14 AM EDT) Pathologist [facility] Phosphorus, Plasma 3.0 2.5 - 4.5 mg/dL 05/01/2025 2:53 AM EDT [facility] Blood Venous blood specimen / Unknown Venipuncture / Unknown 05/01/2025 2:14 AM EDT 05/01/2025 2:26 AM EDT us Marjorie Myers MD LAB BLOOD ORDERABLES Final Resul t [facility] [address] [place] [address] * (ABNORMAL) POCT glucose meter (04/30/2025 8:21 PM EDT) [facility] POCT Glucose 226(H) 74 - 99 [...] 04/30/2025 8:23 PM EDT [facility] Sliver Chopper ID Sandra Perez 04/30/20 25 8:23 PM EDT [facility] Device ID [id number] 04/30/2025 8:23 PM EDT [facility] Specimen Type POC Capillary 04/30/2025 8:23 PM EDT [facility] Blood Capillary blood specimen / Unknown 04/30/2025 8:21 PM EDT 04/30/2025 8:23 PM EDT us Marjorie Myers MD LAB POINT OF CARE TE ST DOCKED DEVICE UNSOLICITED RESULTS Final Result [facility] [address] [place] [address] * (ABNORMAL) POCT glucose meter (04/30/2025 4:19 PM EDT) [facility] POCT Glucose 173(H) 74 - 99 [...] 04/30/2025 4:54 PM EDT [facility] Sliver Chopper ID Priyanka Negrete 04/30/20 4:54 PM EDT [facility] Device ID [id number] 04/30/2025 4:54 PM EDT [facility] Specimen Type POC Capillary 04/30/2025 4:54 PM EDT [facility] Blood Capillary blood specimen / Unknown 04/30/2025 4:19 PM EDT 04/30/2025 4:54 PM EDT Marjorie Myers MD LAB POINT OF CARE TE ST DOCKED DEVICE UNSOLICITED RESULTS Final Result Performing Organization Address City/State/[facility] Co de Phone Number [facility] [address] [place] [address] * (ABNORMAL) POCT glucose meter (04/30/2025 12:11 PM EDT) [facility] POCT Glucose 226(H) 74 - 99 [...] 04/30/2025 12:50 PM EDT [facility] Sliver Chopper ID Priyanka Negrete 04/30/20 12:50 PM EDT [facility] Device ID [id number] 04/30/2025 12:50 PM EDT [facility] Specimen Type POC Capillary 04/30/2025 12:50 PM EDT [facility] Blood Capillary blood specimen / Unknown 04/30/2025 12:11 PM EDT 04/30/2025 12:50 PM EDT Marjorie Myers MD LAB POINT OF CARE TE ST DOCKED DEVICE UNSOLICITED RESULTS Final Result Performing Organization Address City/[facility]/ZIP Co de Phone Number [facility] [address] [place] [address] * (ABNORMAL) POCT glucose meter (04/30/2025 8:18 [...] for testing. Comment 04/30/2025 8:55 AM EDT [facility] Sliver Chopper ID Priyanka Negrete 04/30/20 8:55 AM EDT HEALTHCARE LAB Device ID [id number] 04/30/2025 8:55 AM EDT [facility] Specimen Type POC Capillary 04/30/2025 8:55 AM EDT [facility] Blood Capillary blood specimen / Unknown 04/30/2025 8:18 AM EDT 04/30/2025 8:55 AM EDT Marjorie Myers MD LAB POINT OF CARE TE ST DOCKED DEVICE UNSOLICITED RESULTS Final Result Performing Organization Address City/[facility]/ZIP Co de Phone Number [facility] [address] [place] [address] * (ABNORMAL) CBC and Differential (04/30/2025 3:19 AM EDT) WBC Count 8.84 3.70 - 10.30 10*3/uL LAB HEMATOLOGY METHOD 04/30/2025 3:35 AM EDT [facility] RBC Count 4.31(L) 4.60 - 6.10 10*6/uL LAB HEMATOLOGY METHOD 04/30/2025 3:35 AM EDT [facility] HGB 9.6(L) 13.7 - 17.5 g/dL LAB HEMATOLOGY METHOD 04/30/2025 3:35 AM EDT [facility] HCT 32.6(L) 40.0 - 51.0 % LAB HEMATOLOGY METHOD 04/30/2025 3:35 AM EDT [facility] Platelet Count 245 155 - 369 10*3/uL LAB HEMATOLOGY METHOD 04/30/2025 3:35 AM EDT [facility] MCV 76(L) 79 - 98 fL LAB HEMATOLOGY METHOD 04/30/2025 3:35 AM EDT [facility] MCH 22.3(L) 26.0 - 32.0 pg LAB HEMATOLOGY METHOD 04/30/2025 3:35 AM EDT [facility] MCHC 29.4(L) 30.7 - 35.5 g/dL LAB HEMATOLOGY METHOD 04/30/2025 3:35 AM EDT [facility] RDW 19.1(H) 11.5 - 14.5 % LAB HEMATOLOGY METHOD 04/30/2025 3:35 AM EDT [facility] MPV 8.5(L) 8.8 - 12.5 fL LAB HEMATOLOGY METHOD 04/30/2025 3:35 AM EDT [facility] nRBC 0.0 <=0.0 per 100 WBCs LAB HEMATOLOGY METHOD 04/30/2025 3:35 AM EDT [facility] Differential Type Automated LAB HEMATOLOGY METHOD 04/30/2025 3:35 AM EDT [facility] Neutrophils % 78 % LAB HEMATOLOGY METHOD 04/30/2025 3:35 AM EDT [facility] Lymphocytes % 11 % LAB HEMATOLOGY METHOD 04/30/2025 3:35 AM EDT [facility] Monocytes % 7 % LAB HEMATOLOGY METHOD 04/30/2025 3:35 AM EDT [facility] Eosinophils % 3 % LAB HEMATOLOGY METHOD 04/30/2025 3:35 AM EDT [facility] Basophils % 0 % LAB HEMATOLOGY METHOD 04/30/2025 3:35 AM EDT [facility] Immature Granulocytes % 1 % LAB HEMATOLOGY METHOD 04/30/2025 3:35 AM EDT [facility] Neutrophils Absolute 6.90(H) 1.60 - 6.10 10*3/uL LAB HEMATOLOGY METHOD 04/30/2025 3:35 AM EDT [facility] Lymphocytes Absolute 0.95(L) 1.20 - 3.90 10*3/uL LAB HEMATOLOGY METHOD 04/30/2025 3:35 AM EDT [facility] Monocytes Absolute 0.64 0.30 - 0.90 10*3/uL LAB HEMATOLOGY METHOD 04/30/2025 3:35 AM EDT [facility] Eosinophils Absolute 0.29 0.00 - 0.50 10*3/uL LAB HEMATOLOGY METHOD 04/30/2025 3:35 AM EDT [facility] Basophils Absolute 0.02 0.00 - 0.10 10*3/uL LAB HEMATOLOGY METHOD 04/30/2025 3:35 AM EDT [facility] Immature Granulocytes Absolute 0.04 0.00 - 0.06 10*3/uL LAB HEMATOLOGY METHOD 04/30/2025 3:35 AM EDT [facility] Blood Venous blood specimen / Unknown Venipuncture / Unknown 04/30/2025 3:19 AM EDT 04/30/2025 3:26 AM EDT Narrative [facility] - 04/30/2025 3:35 AM EDT Therapeutic decision making should be based on absolute values, rather than percentages. us Marjorie Myers MD LAB BLOOD ORDERABLES Final Resul t [facility] [address] [place] [address] * (ABNORMAL) Basic Metabolic Panel, Plasma (04/30/2025 3:19 AM EDT) Glucose, Plasma 254(H) 74 - 99 mg/dL 04/30/2025 3:56 AM EDT [facility] BUN, Plasma 11 7 - 21 mg/dL 04/30/2025 3:56 AM EDT [facility] Creatinine, Plasma 0.77 0.70 - 1.20 mg/dL 04/30/2025 3:56 AM EDT [facility] BUN/Creatinine Ratio 14 04/30/2025 3:56 AM EDT [facility] Sodium, Plasma 137 136 - 145 mmol/L 04/30/2025 3:56 AM EDT [facility] Potassium, Plasma 3.3(L) 3.6 - 4.9 mmol/L 04/30/2025 3:56 AM EDT [facility] Chloride, Plasma 91(L) 97 - 107 mmol/L 04/30/2025 3:56 AM EDT [facility] CO2, Plasma 36(H) 22 - 29 mmol/L 04/30/2025 3:56 AM EDT [facility] Anion Gap 10 6 - 16 mmol/L 04/30/2025 3:56 AM EDT [facility] Total Calcium, Plasma 8.7(L) 8.9 - 10.2 mg/dL 04/30/2025 3:56 AM EDT [facility] eGFRcr 111.1 mL/min/1.7 3m*2 04/30/2025 3:56 AM EDT [facility] Comment:Reported eGFRcr in m L/min/1.73m2 is based the CKD-EPI 2020 equation that does not use a race coefficient. Blood Venous blood specimen / Unknown Venipuncture / Unknown 04/30/2025 3:19 AM EDT 04/30/2025 3:26 AM EDT us Marjorie Myers MD LAB BLOOD ORDERABLES Final Resul t [facility] [address] [place] [address] * (ABNORMAL) Magnesium, Plasma (04/30/2025 3:19 AM EDT) Magnesium, Plasma 1.5(L) 1.9 - 2.4 mg/dL 04/30/2025 3:56 AM EDT [facility] Blood Venous blood specimen / Unknown Venipuncture / Unknown 04/30/2025 3:19 AM EDT 04/30/2025 3:26 AM EDT us Marjorie Myers MD LAB BLOOD ORDERABLES Final Resul t [facility] [address] [place] [address] * Phosphorus, Plasma (04/30/2025 3:19 AM EDT) [facility] Phosphorus, Plasma 2.7 2.5 - 4.5 mg/dL 04/30/2025 3:56 AM EDT [facility] Blood Venous blood specimen / Unknown Venipuncture / Unknown 04/30/2025 3:19 AM EDT 04/30/2025 3:26 AM EDT us Marjorie Myers MD LAB BLOOD ORDERABLES Final Resul t Performing Organization Address [facility] Co de Phone Number [facility] [address] [place] [address] * (ABNORMAL) POCT glucose meter (04/29/2025 7:38 PM EDT) [facility] POCT Glucose 191(H) 74 - 99 [...] 04/29/2025 9:20 PM EDT [facility] Sliver Chopper ID Ervin Du V 025 9:20 PM EDT [facility] Device ID [id number] 04/29/2025 9:20 PM EDT [facility] Specimen Type POC Capillary 04/29/2025 9:20 PM EDT [facility] Blood Capillary blood specimen / Unknown 04/29/2025 7:38 PM EDT 04/29/2025 9:20 PM EDT us Marjorie Myers MD LAB POINT OF CARE TE ST DOCKED DEVICE UNSOLICITED RESULTS Final Result Performing Organization Address [facility] Co de Phone Number [facility] [address] [place] [address] * (ABNORMAL) POCT glucose meter (04/29/2025 5:21 PM EDT) [facility] POCT Glucose 241(H) 74 - 99 mg/dL [...] for testing. Comment 04/29/2025 5:23 PM EDT [facility] Sliver Chopper ID Dozier Rocio 04/29/20 5:23 PM EDT [facility] Device ID [id number] 04/29/2025 5:23 PM EDT [facility] Specimen Type POC Capillary 04/29/2025 5:23 PM EDT [facility] Blood Capillary blood specimen / Unknown 04/29/2025 5:21 PM EDT 04/29/2025 5:23 PM EDT Marjorie Myers MD LAB POINT OF CARE TE ST DOCKED DEVICE UNSOLICITED RESULTS Final Result [facility] [address] [place] [id number] * (ABNORMAL) POCT glucose meter (04/29/2025 11:15 AM EDT) [facility] POCT Glucose 204(H) 74 - 99 mg/dL [...] 04/29/2025 11:17 AM EDT [facility] Sliver Chopper ID Rocio Dozier 04/29/20 11:17 AM EDT [facility] Device ID [id number] 04/29/2025 11:17 AM EDT [facility] Specimen Type POC Capillary 04/29/2025 11:17 AM EDT [facility] Blood Capillary blood specimen / Unknown 04/29/2025 11:15 AM EDT 04/29/2025 11:17 AM EDT Marjorie Myers MD LAB POINT OF CARE TE ST DOCKED DEVICE UNSOLICITED RESULTS Final Result [facility] [address] [place] [address] * (ABNORMAL) POCT glucose meter (04/29/2025 7:13 [...] Comment 04/29/2025 7:14 AM EDT [facility] Sliver Chopper ID Rocio Dozier 04/29/20 7:14 AM EDT [facility] Device ID [id number] 04/29/2025 7:14 AM EDT [facility] Specimen Type POC Capillary 04/29/2025 7:14 AM EDT [facility] Blood Capillary blood specimen / Unknown 04/29/2025 7:13 AM EDT 04/29/2025 7:14 AM EDT Marjorie Myers MD LAB POINT OF CARE TE ST DOCKED DEVICE UNSOLICITED RESULTS Final Result [facility] [address] [place] [address] * Folate (04/29/2025 3:04 AM EDT) Folate, Serum 10.5 >4.6 ng/mL 04/29/2025 4:05 AM EDT [facility] Blood Venous blood specimen / Unknown Venipuncture / Unknown 04/29/2025 3:04 AM EDT 04/29/2025 3:20 AM EDT us Sy De La Fuente APRN, DENISE LAB BLOOD ORDERABLES Fin al Result Performing Organization Address City/[facility] Co de Phone Number [facility] [address] [place] [address] * Vitamin B12 (04/29/2025 3:04 AM EDT) Vitamin B12, Serum 338 210 - 1,033 pg/mL 04/29/2025 4:06 AM EDT [facility] Blood Venous blood specimen / Unknown Venipuncture / Unknown 04/29/2025 3:04 AM EDT 04/29/2025 3:20 AM EDT us Sy De La Fuente APRN, DENISE LAB BLOOD ORDERABLES Fin al Result Performing Organization Address [facility] Phone Number [facility] [address] [place] [address] * (ABNORMAL) Iron & Total Iron Binding Capacity, Plasma (Includes Transferrin) (04/29/2025 3:04 AM EDT) Iron, Plasma 36(L) 50 - 170 ug/dL 04/29/2025 3:55 AM EDT [facility] Transferrin, Plasma 197(L) 200 - 360 mg/dL 04/29/2025 3:55 AM EDT [facility] Total Iron Binding Capacity, Plasma 246 240 - 450 ug/mL 04/29/2025 3:55 AM EDT [facility] Transferrin Saturation 15 14 - 50 % 04/29/2025 3:55 AM EDT [facility] Blood Venous blood specimen / Unknown Venipuncture / Unknown 04/29/2025 3:04 AM EDT 04/29/2025 3:19 AM EDT us Sy De La Fuente APRN, DENISE LAB BLOOD ORDERABLES Fin al Result Performing Organization Address City/[facility]/ZIP Co de Phone Number [facility] [address] [place] [address] * Ferritin (04/29/2025 3:04 AM EDT) Ferritin, Serum 40 20 - 400 ng/mL 04/29/2025 4:06 AM EDT [facility] Blood Venous blood specimen / Unknown Venipuncture / Unknown 04/29/2025 3:04 AM EDT 04/29/2025 3:20 AM EDT us Sy De La Fuente APRN, DENISE LAB BLOOD ORDERABLES Fin al Result Performing Organization Address City/[facility]/ZIP Co de Phone Number [facility] [address] [place] [address] * Cortisol (04/29/2025 3:04 AM EDT) Cortisol 2.80 Before 10am: 3.7 - 19.4. After 5pm: 2.9 - 17.3 ug/dL 04/29/2025 4:22 AM EDT [facility] Comment:Testing performed on [employer], standardized against LONG TERM Reference Standard concentration values assigned by LC-MS/MS and verified by BCR 192 and BCR 193 certified reference materials. Blood Venous blood specimen / Unknown Venipuncture / Unknown 04/29/2025 3:04 AM EDT 04/29/2025 3:19 AM EDT us Sy De La Fuente APRN, [facility] LAB REF LAB BLOOD AND FL UID ORD Final Result [facility] [address] [place] [address] * TSH (04/29/2025 3:04 AM EDT) Thyroid Stimulating Hormone, Plasma 1.58 0.40 - 4.20 uIU/mL 04/29/2025 3:55 AM EDT [facility] Blood Venous blood specimen / Unknown Venipuncture / Unknown 04/29/2025 3:04 AM EDT 04/29/2025 3:19 AM EDT us Sy De La Fuente OB/GYN NURSE, DNP LAB BLOOD ORDERABLES Fin al Result [facility] [address] [place] [address] * (ABNORMAL) Hemoglobin A1c (04/29/2025 3:04 AM EDT) Hemoglobin A1c 8.9(H) <5.7 % 04/29/2025 9:40 AM EDT [facility] Blood Venous blood specimen / Unknown Venipuncture / Unknown 04/29/2025 3:04 AM EDT 04/29/2025 3:19 AM EDT Narrative [facility] - 04/29/2025 9:40 AM EDT HA1C Interpretive Data: Diagnosis of Diabetes: Diabetic > or = 6.5% Pre-diabetic 5.7 to 6.4% Non-diabetic < or = 5.6% Glycemic Targets for Type I and Type II Diabetics: Non- Adults <7.0% Adults <6.0% Children and Adolescents <7.5% Source: [place] [employer]. Standards of medical care in diabetes,2017. Diabetes Care.2017:40 (suppl 1):S1-S135. Sy De La Fuente APRN, DNP LAB BLOOD ORDERABLES Fin al Result Performing Organization Address [facility] Co de Phone Number [facility] [address] [place] [address] * Phosphorus (04/29/2025 3:04 AM EDT) Phosphorus, Plasma 3.6 2.5 - 4.5 mg/dL 04/29/2025 3:55 AM EDT [facility] Blood Venous blood specimen / Unknown Venipuncture / Unknown 04/29/2025 3:04 AM EDT 04/29/2025 3:19 AM EDT Sy De La Fuente OB/GYN NURSE, DNP LAB BLOOD ORDERABLES Fin al Result Performing Organization Address City/[facility]/ZIP Co de Phone Number [facility] [address] [place] [address] * (ABNORMAL) Magnesium, Plasma (04/29/2025 3:04 AM EDT) Magnesium, Plasma 1.7(L) 1.9 - 2.4 mg/dL 04/29/2025 3:55 AM EDT [facility] Blood Venous blood specimen / Unknown Venipuncture / Unknown 04/29/2025 3:04 AM EDT 04/29/2025 3:19 AM EDT us Sy De La Fuente OB/GYN NURSE, DNP LAB BLOOD ORDERABLES Fin al Result [facility] [address] [place] [address] * (ABNORMAL) Comprehensive metabolic panel (04/29/2025 3:04 AM EDT) Glucose, Plasma 219(H) 74 - 99 mg/dL 04/29/2025 3:55 AM EDT [facility] BUN, Plasma 9 7 - 21 mg/dL 04/29/2025 3:55 AM EDT [facility] Creatinine, Plasma 0.94 0.70 - 1.20 mg/dL 04/29/2025 3:55 AM EDT [facility] BUN/Creatinine Ratio 04/29/2025 3:55 AM EDT [facility] Sodium, Plasma 137 136 - 145 mmol/L 04/29/2025 3:55 AM EDT [facility] Potassium, Plasma 3.1(L) 3.6 - 4.9 mmol/L 04/29/2025 3:55 AM EDT [facility] Chloride, Plasma 92(L) 97 - 107 mmol/L 04/29/2025 3:55 AM EDT [facility] CO2, Plasma 38(H) 22 - 29 mmol/L 04/29/2025 3:55 AM EDT [facility] Anion Gap 7 6 - 16 mmol/L 04/29/2025 3:55 AM EDT [facility] Total Calcium, Plasma 8.6(L) 8.9 - 10.2 mg/dL 04/29/2025 3:55 AM EDT [facility] Total Protein 7.4 6.3 - 7.9 g/dL 04/29/2025 3:55 AM EDT [facility] Albumin, Plasma 3.3(L) 3.5 - 5.2 g/dL 04/29/2025 3:55 AM EDT [facility] AST, Plasma 18 10 - 50 U/L 04/29/2025 3:55 AM EDT [facility] ALT, Plasma 11 10 - 50 U/L 04/29/2025 3:55 AM EDT [facility] Alkaline Phosphatase, Plasma 55 40 - 115 U/L 04/29/2025 3:55 AM EDT [facility] Total Bilirubin, Plasma 0.8 0.2 - 1.1 mg/dL 04/29/2025 3:55 AM EDT [facility] eGFRcr 100.6 mL/min/1.7 3m*2 04/29/2025 3:55 AM EDT [facility] Comment:Reported eGFRcr in m L/min/1.73m2 is based the CKD-EPI 2020 equation that does not use a race coefficient. Blood Venous blood specimen / Unknown Venipuncture / Unknown 04/29/2025 3:04 AM EDT 04/29/2025 3:19 AM EDT us Sy De La Fuente OB/GYN NURSE, DNP LAB BLOOD ORDERABLES Fin al Result [facility] [address] [place] [address] * (ABNORMAL) CBC and Differential (04/29/2025 3:04 AM EDT) WBC Count 6.68 3.70 - 10.30 10*3/uL LAB HEMATOLOGY METHOD 04/29/2025 3:16 AM EDT [facility] RBC Count 4.21(L) 4.60 - 6.10 10*6/uL LAB HEMATOLOGY METHOD 04/29/2025 3:16 AM EDT [facility] HGB 9.4(L) 13.7 - 17.5 g/dL LAB HEMATOLOGY METHOD 04/29/2025 3:16 AM EDT [facility] HCT 32.0(L) 40.0 - 51.0 % LAB HEMATOLOGY METHOD 04/29/2025 3:16 AM EDT [facility] Platelet Count 249 155 - 369 10*3/uL LAB HEMATOLOGY METHOD 04/29/2025 3:16 AM EDT [facility] MCV 76(L) 79 - 98 fL LAB HEMATOLOGY METHOD 04/29/2025 3:16 AM EDT [facility] MCH 22.3(L) 26.0 - 32.0 pg LAB HEMATOLOGY METHOD 04/29/2025 3:16 AM EDT [facility] MCHC 29.4(L) 30.7 - 35.5 g/dL LAB HEMATOLOGY METHOD 04/29/2025 3:16 AM EDT [facility] RDW 19.6(H) 11.5 - 14.5 % LAB HEMATOLOGY METHOD 04/29/2025 3:16 AM EDT [facility] MPV 8.4(L) 8.8 - 12.5 fL LAB HEMATOLOGY METHOD 04/29/2025 3:16 AM EDT [facility] nRBC 0.0 <=0.0 per 100 WBCs LAB HEMATOLOGY METHOD 04/29/2025 3:16 AM EDT [facility] Differential Type Automated LAB HEMATOLOGY METHOD 04/29/2025 3:16 AM EDT [facility] Neutrophils % 75 % LAB HEMATOLOGY METHOD 04/29/2025 3:16 AM EDT [facility] Lymphocytes % 11 % LAB HEMATOLOGY METHOD 04/29/2025 3:16 AM EDT [facility] Monocytes % 9 % LAB HEMATOLOGY METHOD 04/29/2025 3:16 AM EDT [facility] Eosinophils % 4 % LAB HEMATOLOGY METHOD 04/29/2025 3:16 AM EDT [facility] Basophils % 0 % LAB HEMATOLOGY METHOD 04/29/2025 3:16 AM EDT [facility] Immature Granulocytes % 1 % LAB HEMATOLOGY METHOD 04/29/2025 3:16 AM EDT [facility] Neutrophils Absolute 5.01 1.60 - 6.10 10*3/uL LAB HEMATOLOGY METHOD 04/29/2025 3:16 AM EDT [facility] Lymphocytes Absolute 0.75(L) 1.20 - 3.90 10*3/uL LAB HEMATOLOGY METHOD 04/29/2025 3:16 AM EDT [facility] Monocytes Absolute 0.59 0.30 - 0.90 10*3/uL LAB HEMATOLOGY METHOD 04/29/2025 3:16 AM EDT [facility] Eosinophils Absolute 0.26 0.00 - 0.50 10*3/uL LAB HEMATOLOGY METHOD 04/29/2025 3:16 AM EDT [facility] Basophils Absolute 0.03 0.00 - 0.10 10*3/uL LAB HEMATOLOGY METHOD 04/29/2025 3:16 AM EDT [facility] Immature Granulocytes Absolute 0.04 0.00 - 0.06 10*3/uL LAB HEMATOLOGY METHOD 04/29/2025 3:16 AM EDT [facility] Blood Venous blood specimen / Unknown Venipuncture / Unknown 04/29/2025 3:04 AM EDT 04/29/2025 3:13 AM EDT Narrative [facility] - 04/29/2025 3:16 AM EDT Therapeutic decision making should be based on absolute values, rather than percentages. us Sy De La Fuente OB/GYN NURSE, DNP LAB BLOOD ORDERABLES Fin al Result [facility] [address] [place] [address] * (ABNORMAL) POCT glucose meter (04/28/2025 9:06 PM EDT) POCT Glucose 212(H) 74 - 99 mg/dL 04/28/2025 9:08 PM EDT [facility] Comment:Accuracy of [...] 04/28/2025 9:08 PM EDT [facility] Sliver Chopper ID Frankie Poole 04/28/2025 9:08 PM EDT [facility] Device ID [id number] 04/28/2025 9:08 PM EDT [facility] Specimen Type POC Capillary 04/28/2025 9:08 PM EDT [facility] Blood Capillary blood specimen / Unknown 04/28/2025 9:06 PM EDT 04/28/2025 9:08 PM EDT Marjorie Myers MD LAB POINT OF CARE TE ST DOCKED DEVICE UNSOLICITED RESULTS Final Result Performing Organization Address City/[facility]/ZIP Co de Phone Number [facility] [address] [place] [address] * (ABNORMAL) POCT glucose meter (04/28/2025 5:34 [...] Comment 04/28/2025 5:38 PM EDT [facility] Sliver Chopper ID Ailyn Finch 5:38 PM EDT [facility] Device ID [id number] 04/28/2025 5:38 PM EDT [facility] Specimen Type POC Capillary 04/28/2025 5:38 PM EDT [facility] Blood Capillary blood specimen / Unknown 04/28/2025 5:34 PM EDT 04/28/2025 5:38 PM EDT Marjorie Myers MD LAB POINT OF CARE TE ST DOCKED DEVICE UNSOLICITED RESULTS Final Result [facility] [address] [place] [address] * (ABNORMAL) POCT glucose meter (04/28/2025 3:51 [...] Comment 04/28/2025 3:54 PM EDT [facility] Sliver Chopper ID Ailyn Finch 3:54 PM EDT [facility] Device ID [id number] 04/28/2025 3:54 PM EDT [facility] Specimen Type POC Capillary 04/28/2025 3:54 PM EDT [facility] Blood Capillary blood specimen / Unknown 04/28/2025 3:51 PM EDT 04/28/2025 3:54 PM EDT Marjorie Myers MD LAB POINT OF CARE TE ST DOCKED DEVICE UNSOLICITED RESULTS Final Result Performing Organization Address City/State/[facility] Co de Phone Number HEALTHCARE LAB [address] [place] [address] * VAS Ankle Brachial Index - GABBI [...] are demonstrated at the levels of the [employer] and DPA. Segmental pressures are within normal limits with a [employer] GABBI of 1.1 (172 mmHg) and a DPA GABBI of 1.0 (149 mmHg). Digit pressures are of 122 mmHg. Left: Multiphasic waveforms are demonstrated at the levels of the [employer] and DPA. Segmental pressures are within normal limits with a [employer] GABBI of 1.1 (164 mmHg) and a DPA GABBI of 1.0 (153 mmHg). Digit pressures are of 151 mmHg. Procedure Note Chris Schaefer MD - 04/28/2025 CLINICAL INDICATION: Diabetic foot ulcer TECHNIQUE: Non-invasive, continuous wave Doppler exam with segmental pressures andspectral analysis of the lower extremity was performed. COMPARISON: None. FINDINGS: Right: Multiphasic waveforms are demonstrated at the levels of the [employer] andDPA. Segmental pressures are within normal limits with a [employer] GABBI of 1.1(172 mmHg) and a DPA GABBI of 1.0 (149 mmHg). Digit pressures are of 122mmHg. Left: Multiphasic waveforms are demonstrated at the levels of the [employer] andDPA. Segmental pressures are within normal limits with a [employer] GABBI of 1.1(164 mmHg) and a DPA [...] 4:14 PM us Sy De La Fuente OB/GYN NURSE, DNP CV VASCULAR PROCEDURES F inal Result * Multi Drug Resistance Test (04/28/2025 1:44 PM EDT) Culture No Multi Drug Resistant Organisms Isolated 04/29/2025 2:32 PM EDT [facility] Swab (Nares and Saba Rectal) Non-blood Collection / Unknown 04/28/2025 1:44 PM EDT 04/28/2025 2:15 PM EDT Narrative [facility] - 04/29/2025 2:32 PM EDT This test was developed and its performance characteristics determined by the [facility]. Although the media is FDA-approved, it is not FDA-approved for all specimen types submitted. The FDA has determined that such clearance or approval is not necessary. This test is used for surveillance purposes. It should not be regarded as investigational or for research. [facility] Clinical Microbiology Laboratory is certified under the Clinical Laboratory Improvement Amendments of 1988 (CLIA-88) as qualified to perform high complexity clinical laboratory testing. Sy De La Fuente APRN, [facility] MICROBIOLOGY - [facility] AL ORDERABLES Final Result [facility] [address] [place] [address] * (ABNORMAL) POCT glucose meter (04/28/2025 12:52 PM EDT) [facility] POCT Glucose 271(H) 74 - 99 [...] 04/28/2025 12:56 PM EDT [facility] Sliver Chopper ID Ailyn Finch 12:56 PM EDT HEALTHCARE LAB Device ID [id number] 04/28/2025 12:56 PM EDT HEALTHCARE LAB Specimen Type POC Capillary 04/28/2025 12:56 PM EDT [facility] Blood Capillary blood specimen / Unknown 04/28/2025 12:52 PM EDT 04/28/2025 12:56 PM EDT Marjorie Myers MD LAB POINT OF CARE TE ST DOCKED DEVICE UNSOLICITED RESULTS Final Result Performing Organization Address City/[facility]/ZIP Co de Phone Number [facility] [address] [place] [address] * (ABNORMAL) POCT glucose meter (04/28/2025 11:39 [...] Comment 04/28/2025 11:44 AM EDT [facility]ALTH[facility] Sliver Chopper ID Ailyn Finch 11:44 AM EDT HEALTHCARE LAB Device ID [id number] 04/28/2025 11:44 AM EDT [facility] Specimen Type POC Capillary 04/28/2025 11:44 AM EDT [facility] Blood Capillary blood specimen / Unknown 04/28/2025 11:39 AM EDT 04/28/2025 11:44 AM EDT us Marjorie Myers MD LAB POINT OF CARE TE ST DOCKED DEVICE UNSOLICITED RESULTS Final Result [facility] [address] [place] [address] * Lavender Top (04/28/2025 8:13 AM EDT) Pathologist [facility] Extra Hold for add-ons 04/28/2025 11:01 AM EDT [facility] Comment:Auto resulted. Blood Venous blood specimen / Unknown 04/28/2025 8:13 AM EDT 04/28/2025 8:19 AM EDT Marjorie Myers MD LAB BLOOD ORDERABLES Final Resul t Performing Organization Address City/[facility]/ZIP Co de Phone Number [facility] [address] [place] [address] * Light Green Top (04/28/2025 8:13 AM EDT) Extra Hold for add-ons 04/28/2025 11:01 AM EDT [facility] Comment:Auto resulted. Blood Venous blood specimen / Unknown 04/28/2025 8:13 AM EDT 04/28/2025 8:19 AM EDT us Marjorie Myers MD LAB BLOOD ORDERABLES Final Resul t Performing Organization Address [facility]/ZIP Co de Phone Number [facility] [address] [place] [address] * APTT (04/28/2025 8:13 AM EDT) aPTT 32 25 - 35 sec 04/28/2025 8:33 AM EDT [facility] Blood Venous blood specimen / Unknown Venipuncture / Unknown 04/28/2025 8:13 AM EDT 04/28/2025 8:18 AM EDT us Sy De La Fuente OB/GYN NURSE, DNP LAB BLOOD ORDERABLES Fin al Result Performing Organization Address City/[facility] Co de Phone Number [facility] [address] [place] [address] * (ABNORMAL) PT/INR (04/28/2025 8:13 AM EDT) Prothrombin Time 17.5(H) 12.0 - 14.3 sec 04/28/2025 8:33 AM EDT [facility] INR 1.4(H) 0.9 - 1.1 04/28/2025 8:33 AM EDT [facility] Blood Venous blood specimen / Unknown Venipuncture / Unknown 04/28/2025 8:13 AM EDT 04/28/2025 8:18 AM EDT Narrative [facility] - 04/28/2025 8:33 AM EDT OPTIMAL INR RANGES FOR PATIENT ON ORAL ANTICOAGULANT THERAPY Prevention of venous thromboembolism INR 2.0 to 3.0 In patients with heart disease: Atrial fibrillation INR 2.0 to 3.0 Valvular heart disease INR 2.0 to 3.0 Tissue heart valves INR 2.0 to 3.0 Mechanical prosthetic valves INR 2.5 to 3.5 Prevention of recurrent NV INR 2.5 to 3.5 Sy De La Fuente APRN, [facility] BLOOD ORDERABLES Fin al Result Performing Organization Address City/[facility]/ZIP Co de Phone Number [facility] [address] [place] [address] * ECG Adult (04/28/2025 7:20 AM EDT) EKG DIAGNOSIS CLASS Abnormal MUSE ECG Ventricular Rate 90 BPM MUSE ECG Atrial Rate 90 BPM MUSE ECG OH Interval 206 ms MUSE ECG QRSD Interval 146 ms MUSE ECG QT Interval 450 ms MUSE ECG QTC Interval 550 ms MUSE ECG P [place] 69 degrees MUSE ECG R [place] -32 degrees MUSE ECG T Wave [place] 35 degrees MUSE ECG Diagnosis Baseline Artifact [...] ORDERABLES Final Re sult Performing Organization Address City/[facility] Co de Phone Number MUSE ECG * (ABNORMAL) POCT glucose meter (04/28/2025 7:17 AM EDT) POCT Glucose 199(H) 74 - 99 mg/dL 04/28/2025 7:21 AM EDT [facility] Comment:Accuracy of a glucos e [...] 04/28/2025 7:21 AM EDT [facility] Sliver Chopper ID Ailyn Finch 7:21 AM EDT HEALTHCARE LAB Device ID [id number] 04/28/2025 7:21 AM EDT [facility] Specimen Type POC Capillary 04/28/2025 7:21 AM EDT [facility]ALTH[facility] LAB Blood Capillary blood specimen / Unknown 04/28/2025 7:17 AM EDT 04/28/2025 7:21 AM EDT us Greg Lee MD LAB POINT OF CARE TE ST DOCKED DEVICE UNSOLICITED RESULTS Final Result Performing Organization Address City/State/[facility] Co de Phone Number [facility] [address] [place] [address] * CT Foot Right w IV Contrast [...] Alcala MD on 04/28/2025 5:27 AM Jessa Cesar MD IMG CT PROCEDURES Final [...] BLOOD BANK TEST ORDERABL ES Final Result Performing Organization Address [facility] Co de Phone Number BLOOD BANK [address] [place] [address] * Blood Culture (Aerobic/Anaerobet Set) (04/27/2025 10:16 PM EDT) Culture No growth at day 5 05/03/2025 12:01 AM EDT [facility] Blood Venous blood specimen / Unknown Venipuncture / Unknown 04/27/2025 10:16 PM EDT 04/27/2025 10:53 PM EDT us Jessa Cesar MD LAB MICROBIOLOGY - GENERAL O RDERABLES Final Result Performing Organization Address City/[facility]/ZIP Co de Phone Number [facility] [address] [place] [address] * Blood Culture (Aerobic/Anaerobet Set) (04/27/2025 10:16 PM EDT) Culture No growth at day 5 05/03/2025 12:01 AM EDT [facility] Blood Venous blood specimen / Unknown Venipuncture / Unknown 04/27/2025 10:16 PM EDT 04/27/2025 10:53 PM EDT us Jessa Cesar MD LAB MICROBIOLOGY - GENERAL O RDERABLES Final Result [facility] [address] [place] [address] * (ABNORMAL) Blood gas, venous (04/27/2025 10:16 PM EDT) pH, Venous 7.47(H) 7.32 - 7.43 LAB HEMATOLOGY METHOD 04/27/2025 10:21 PM EDT [facility] pCO2, Venous 50 40 - 55 mmHg LAB HEMATOLOGY METHOD 04/27/2025 10:21 PM EDT [facility] pO2, Venous 30 25 - 40 mmHg LAB HEMATOLOGY METHOD 04/27/2025 10:21 PM EDT [facility] SO2, Measured, Venous 52(L) 65 - 80 % LAB HEMATOLOGY METHOD 04/27/2025 10:21 PM EDT [facility] Base Excess, Venous 11.6(H) -2.0 - 3.0 mmol/L LAB HEMATOLOGY METHOD 04/27/2025 10:21 PM EDT [facility] Bicarbonate, Calculated, Venous 37(H) 22 - 26 mmol/L LAB HEMATOLOGY METHOD 04/27/2025 10:21 PM EDT [facility] Hematocrit, Whole Blood 30.1(L) 40.0 - 51.0 % LAB HEMATOLOGY METHOD 04/27/2025 10:21 PM EDT [facility] Sodium, Whole Blood 136 136 - 145 mmol/L LAB HEMATOLOGY METHOD 04/27/2025 10:21 PM EDT [facility] Potassium, Whole Blood 2.8(L) 3.6 - 4.9 mmol/L LAB HEMATOLOGY METHOD 04/27/2025 10:21 PM EDT [facility] Chloride, Whole Blood 88(L) 97 - 107 mmol/L LAB HEMATOLOGY METHOD 04/27/2025 10:21 PM EDT [facility] Glucose, Whole Blood 131(H) 74 - 99 mg/dL LAB HEMATOLOGY METHOD 04/27/2025 10:21 PM EDT [facility] Lactate, Venous, Whole Blood 2.0 0.5 - 2.2 mmol/L LAB HEMATOLOGY METHOD 04/27/2025 10:21 PM EDT [facility] Ionized Calcium, Whole Blood 4.2(L) 4.6 - 5.1 mg/dL LAB HEMATOLOGY METHOD 04/27/2025 10:21 PM EDT [facility] Blood Venous blood specimen / Unknown Venipuncture / Unknown 04/27/2025 10:16 PM EDT 04/27/2025 10:20 PM EDT us Jessa Cesar MD LAB BLOOD ORDERABLES Final R esult Performing Organization Address City/[facility]/ZIP Co de Phone Number [facility] [address] [place] [address] * Creatine Kinase, Total, Plasma (04/27/2025 9:37 PM EDT) Creatine Kinase, Plasma 71 49 - 320 U/L 04/28/2025 8:36 AM EDT [facility] Blood Venous blood specimen / Unknown Venipuncture / Unknown 04/27/2025 9:37 PM EDT 04/27/2025 9:40 PM EDT us Sy De La Fuente OB/GYN NURSE, DNP LAB BLOOD ORDERABLES Fin al Result Performing Organization Address City/[facility]/ZIP Co de Phone Number [facility] [address] [place] [address] * (ABNORMAL) Procalcitonin (04/27/2025 9:37 PM EDT) Procalcitonin, Plasma 0.11(H) <0.09 ng/mL 04/28/2025 8:36 AM EDT [facility] Blood Venous blood specimen / Unknown Venipuncture / Unknown 04/27/2025 9:37 PM EDT 04/27/2025 9:40 PM EDT Narrative [facility] - 04/28/2025 8:36 AM EDT [...] predict 28 day mortality risk. Please consult [email or web address]-qen-lonulvcyqs.com for more information. Test performed at [facility], [facility]. us Sy De La Fuente APRN, DNP LAB BLOOD ORDERABLES Fin al Result Performing Organization Address City/[facility]/ZIP Co de Phone Number [facility] [address] [place] [address] * (ABNORMAL) Sed rate, automated (04/27/2025 9:37 PM EDT) Sedimentation Rate >111(H) <15 mm/hr 2024 11:10 PM EDT [facility] Blood Venous blood specimen / Unknown Venipuncture / Unknown 04/27/2025 9:37 PM EDT 04/27/2025 9:40 PM EDT us Jessa Cesar MD LAB BLOOD ORDERABLES Final R esult [facility] [address] [place] [address] * (ABNORMAL) Magnesium (04/27/2025 9:37 PM EDT) Magnesium, Plasma 1.2(L) 1.9 - 2.4 mg/dL 04/27/2025 10:11 PM EDT [facility] Blood Venous blood specimen / Unknown Venipuncture / Unknown 04/27/2025 9:37 PM EDT 04/27/2025 9:40 PM EDT Jessa Cesar MD LAB BLOOD ORDERABLES Final R esult Performing Organization Address City/[facility]/ZIP Co de Phone Number [facility] [address] [place] [address] * Beta-Hydroxybutyric Acid (04/27/2025 9:37 PM EDT) Pathologist [facility] Beta-Hydroxybut yric Acid, Plasma 0.23 <=0.27 mmol/L 04/27/2025 10:56 PM EDT [facility] Blood Venous blood specimen / Unknown Venipuncture / Unknown 04/27/2025 9:37 PM EDT 04/27/2025 9:40 PM EDT Jessa Cesar MD LAB BLOOD ORDERABLES Final R esult Performing Organization Address City/[facility]/ZIP Co de Phone Number [facility] [address] [place] [address] * ED HIV 1/2 Antibody/Antigen Screen w/Reflex to HIV 1/2 Differentiation (04/27/2025 9:37 PM EDT) [facility] HIV 1 & 2 Antibody/Antigen Screen Non Reactive Non Reactive 04/27/2025 10:41 PM EDT [facility] Comment:Screening for HIV 1 & 2 antibodies, and P24 antigen is NONREACTIVE. No confirmatory testing is required. Blood Venous blood specimen / Unknown Venipuncture / Unknown 04/27/2025 9:37 PM EDT 04/27/2025 10:00 PM EDT Madhu Ritchie MD LAB BLOOD ORDERABLES Final Res ult Performing Organization Address City/[facility]/ZIP Co de Phone Number [facility] [address] [place] [address] * Hepatitis C Antibody - ED (04/27/2025 9:37 PM EDT) Pathologist [facility] Hepatitis C Antibody Negative Negative 04/27/2025 10:41 PM EDT [facility] Blood Venous blood specimen / Unknown Venipuncture / Unknown 04/27/2025 9:37 PM EDT 04/27/2025 10:00 PM EDT Madhu Ritchie MD LAB BLOOD ORDERABLES Final Res ult Performing Organization Address [facility]/ZIP Co de Phone Number [facility] [address] [place] [address] * (ABNORMAL) C-reactive protein (04/27/2025 9:37 PM EDT) CRP, Plasma 82.6(H) <=8.0 mg/L 04/27/2025 10:03 PM EDT [facility] Blood Venous blood specimen / Unknown Venipuncture / Unknown 04/27/2025 9:37 PM EDT 04/27/2025 9:40 PM EDT Narrative [facility] - 04/27/2025 10:03 PM EDT This CRP test is appropriate for assessment of infection, systemic inflammation and/or tissue injury. To assess cardiovascular disease risk order high sensitivity CRP (CRPH). Madhu Ritchie MD LAB BLOOD ORDERABLES Final Res ult Performing Organization Address [facility] Co de Phone Number [facility] [address] [place] [address] * (ABNORMAL) CBC w/diff (04/27/2025 9:37 PM EDT) WBC Count 12.00(H) 3.70 - 10.30 10*3/uL LAB HEMATOLOGY METHOD 04/27/2025 9:43 PM EDT [facility] RBC Count 4.48(L) 4.60 - 6.10 10*6/uL LAB HEMATOLOGY METHOD 04/27/2025 9:43 PM EDT [facility] HGB 10.4(L) 13.7 - 17.5 g/dL LAB HEMATOLOGY METHOD 04/27/2025 9:43 PM EDT [facility] HCT 33.3(L) 40.0 - 51.0 % LAB HEMATOLOGY METHOD 04/27/2025 9:43 PM EDT [facility] Platelet Count 282 155 - 369 10*3/uL LAB HEMATOLOGY METHOD 04/27/2025 9:43 PM EDT [facility] MCV 74(L) 79 - 98 fL LAB HEMATOLOGY METHOD 04/27/2025 9:43 PM EDT [facility] MCH 23.2(L) 26.0 - 32.0 pg LAB HEMATOLOGY METHOD 04/27/2025 9:43 PM EDT [facility] MCHC 31.2 30.7 - 35.5 g/dL LAB HEMATOLOGY METHOD 04/27/2025 9:43 PM EDT [facility] RDW 19.4(H) 11.5 - 14.5 % LAB HEMATOLOGY METHOD 04/27/2025 9:43 PM EDT [facility] MPV 8.3(L) 8.8 - 12.5 fL LAB HEMATOLOGY METHOD 04/27/2025 9:43 PM EDT [facility] nRBC 0.0 <=0.0 per 100 WBCs LAB HEMATOLOGY METHOD 04/27/2025 9:43 PM EDT [facility] Differential Type Automated LAB HEMATOLOGY METHOD 04/27/2025 9:43 PM EDT [facility] Neutrophils % 82 % LAB HEMATOLOGY METHOD 04/27/2025 9:43 PM EDT [facility] Lymphocytes % 9 % LAB HEMATOLOGY METHOD 04/27/2025 9:43 PM EDT [facility] Monocytes % 7 % LAB HEMATOLOGY METHOD 04/27/2025 9:43 PM EDT [facility] Eosinophils % 2 % LAB HEMATOLOGY METHOD 04/27/2025 9:43 PM EDT [facility] Basophils % 0 % LAB HEMATOLOGY METHOD 04/27/2025 9:43 PM EDT [facility] Immature Granulocytes % 0 % LAB HEMATOLOGY METHOD 04/27/2025 9:43 PM EDT [facility] Neutrophils Absolute 9.73(H) 1.60 - 6.10 10*3/uL LAB HEMATOLOGY METHOD 04/27/2025 9:43 PM EDT [facility] Lymphocytes Absolute 1.11(L) 1.20 - 3.90 10*3/uL LAB HEMATOLOGY METHOD 04/27/2025 9:43 PM EDT [facility] Monocytes Absolute 0.80 0.30 - 0.90 10*3/uL LAB HEMATOLOGY METHOD 04/27/2025 9:43 PM EDT [facility] Eosinophils Absolute 0.29 0.00 - 0.50 10*3/uL LAB HEMATOLOGY METHOD 04/27/2025 9:43 PM EDT [facility] Basophils Absolute 0.03 0.00 - 0.10 10*3/uL LAB HEMATOLOGY METHOD 04/27/2025 9:43 PM EDT [facility] Immature Granulocytes Absolute 0.04 0.00 - 0.06 10*3/uL LAB HEMATOLOGY METHOD 04/27/2025 9:43 PM EDT [facility] Blood Venous blood specimen / Unknown Venipuncture / Unknown 04/27/2025 9:37 PM EDT 04/27/2025 9:40 PM EDT Narrative [facility] - 04/27/2025 9:43 PM EDT Therapeutic decision making should be based on absolute values, rather than percentages. us Madhu Ritchie MD LAB BLOOD ORDERABLES Final Res ult [facility] [address] [place] [address] * (ABNORMAL) BMP (04/27/2025 9:37 PM EDT) Glucose, Plasma 135(H) 74 - 99 mg/dL 04/27/2025 10:03 PM EDT [facility] BUN, Plasma 8 7 - 21 mg/dL 04/27/2025 10:03 PM EDT [facility] Creatinine, Plasma 0.84 0.70 - 1.20 mg/dL 04/27/2025 10:03 PM EDT [facility] BUN/Creatinine Ratio 10 04/27/2025 10:03 PM EDT [facility] Sodium, Plasma 135(L) 136 - 145 mmol/L 04/27/2025 10:03 PM EDT [facility] Potassium, Plasma 3.3(L) 3.6 - 4.9 mmol/L 04/27/2025 10:03 PM EDT [facility] Chloride, Plasma 90(L) 97 - 107 mmol/L 04/27/2025 10:03 PM EDT [facility] CO2, Plasma 29 22 - 29 mmol/L 04/27/2025 10:03 PM EDT [facility] Anion Gap 16 6 - 16 mmol/L 04/27/2025 10:03 PM EDT [facility] Total Calcium, Plasma 9.0 8.9 - 10.2 mg/dL 04/27/2025 10:03 PM EDT [facility] eGFRcr 108.2 mL/min/1.7 3m*2 04/27/2025 10:03 PM EDT [facility] Comment:Reported eGFRcr in m L/min/1.73m2 is based the CKD-EPI 2020 equation that does not use a race coefficient. 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] Slaughter RN) 2003 (Given - Provider: Ivan Slaughter, LOLA) bisoprolol (Zebeta) tablet 10 mg (CANCELED) 10 [...] RN) 09 (Given - Provider: Deepthi Herman, LOLA)1700 (Given - Provider: Deepthi Herman, RN)2003 (Given - Provider: Ivan Slaughter, LOLA) 0906 (Given - Provider: Kylee Gonzalez, LOLA) cariprazine [...] Slaughter RN) 0906 (Given - Provider: Kylee Gonzalez, LOLA) insulin lispro (Admelog) 100 units/mL injection - Correction - Very Resistant Dose 0-15 Units, Subcutaneous, 3 times daily with meals, First dose on Thu05/10/25 at 1245, Until Discontinued, Routine 0905 (Given - Provider: Deepthi Herman RN)1306 (Given - Provider: Deepthi Herman, LOLA)1755 (Given - Provider: Deepthi Herman RN) 0907 (Given - Provider: Deepthi Herman, LOLA)1216 (Given - Provider: Deepthi Herman, RN)1729 (Given - Provider: Deepthi Herman, LOLA) [...] Provider: Kylee Gonzalez, LOLA - Comment: [facility]) insulin regular (HumuLIN R U-500) 500 UNIT/ML [...] Provider: Kylee Gonzalez, LOLA - Comment: [facility]) insulin regular (HumuLIN R U-500) 500 UNIT/ML [...] - Provider: Kylee Gonzalez, LOLA - Comment: [facility]) perflutren lipid microspheres (Definity) [...] 0901 (Given - Provider: Deepthi Herman RN) 09 (Given - Provider: Kylee Gonzalez, LOLA) venlafaxine XR (Effexor-XR) 24 hr capsule 150 mg 150 mg, Oral, Daily, First dose on Thu04/28/25 at 0900, Until Discontinued 0854 (Given - Provider: Deepthi Herman, LOLA) 09 (Given - Provider: Deepthi Herman, RN) 905 (Given - Provider: Kylee Gonzalez, LOLA) PRN [...] RN)1626 (Given - Provider: Deepthi Herman, RN) 09 (Given - Provider: Deepthi Herman, LOLA) albuterol [...] Deepthi Herman RN)1424 (Given - Provider: Deepthi N Thorn, RN)2228 (Given - Provider: Ivan Slaughter RN) 0907 (Given - Provider: Kylee Gonzalez RN) sodium chloride ([place]) 0.65 % nasal spray 1 spray 1 [...] Starting on Thu04/28/25 at 0706, Until Michaelle 11 at 1348, Administer over 15 Minutes, Routine, [...] documented as of this encounter Care Teams Ethnology Teacher Relationship Specialty Start Date End Date Malcolm Hayward APRN [id number] PCP - General 09/21/23 documented as of this encounter
--- OUTSIDE RECORDS SUMMARY | 2025-06-22 13:40 | XMS_ITS | Encounter Summary ---
Author Organization [facility] Address [address] [id number] Care Team Providers Care Grief Counsellor Name Role Phone Malcolm Hayward ADALGISA Primary Care Provider [phone] Reason for Visit * Reason Comments Post-op * Consultation (Routine) - Closed Specialty Diagnoses / Procedures Referred By Contact Referred To Contact Vascular Surgery / [facility] Diagnoses Diabetic foot ulcer with osteomyelitis Diane Guzman MD [address] [place] [address] Phone: tel:[phone] fax:[phone] [facility] [address] [place] [address] Phone: tel: fax: Referral ID Status Reason Start Date Expiration Date V isits Requested Visits Authorized [id number] Closed Specialty Services Required 05/03/2025 11/02/2026 1 1 Encounter Details Date Type Department Care Team (Latest Contact Info) Description 06/22/2025 1:40 PM EST Office Visit [facility] [address] [place] [address] Mary Vicente MD [address] [facility] [address] [place] [address] QUINN (obstructive sleep apnea) (Primary [...] in the past 12 m [facility], were you homeless or living in a longterm (including now)? No 04/28/2025 [facility] Utilities Answer Date Recorded In the past 12 months has e [employer], gas, oil, or water [employer] threatened to shut off services in your [...] Park RN - 06/22/2025 1:40 PM EST [facility] Physician Orders/Patient Instructions Should you [...] are demonstrated at the levels of the PROTOHISTORIAN and DPA. Segmental pressuresare within normal limits with a PROTOHISTORIAN GABBI of 1.1 (172 mmHg) and a DPA GABBI of 1.0 (149 mmHg). Digit pressures are of 122 mmHg. Left: Multiphasic waveforms are demonstrated at the levels of the PROTOHISTORIAN and DPA. Segmental pressures are within normal limits with a PROTOHISTORIAN GABBI of 1.1 (164 mmHg) and a [...] 05/19/2024 Atrial fibrillation with rapid ventricular response ([facility]/HCC) 05/19/2024 Primary osteoarthritis of knees, bilateral 05/19/2024 Recurrent major depression resistant to treatment ([facility]/HCC) 05/19/2024 S/P gastric sleeve procedure 05/19/2024 Diabetic foot ulcer 05/19/2024 Smoker unmotivated to quit 05/19/2024 Tachycardia 05/19/2024 Neuropathy 09/30/2021 Other hyperlipidemia 12/21/2020 Type 2 diabetes 12/21/2020 Lower back pain 04/22/2019 Hypertension 02/18/2019 Edema 02/18/2019 Uncontrolled type 2 diabetes mellitus with hyperglycemia, with long-term current use of insulin 06/14/2018 Microalbuminuria 04/09/2018 Morbid obesity (CMS/HCC) 12/24/2016 Allergic rhinitis 12/24/2016 QUINN (obstructive sleep [...] Description 08/03/2025 2:00 PM EST Office Visit [facility] [address] [place] [facility] 5th Floor [address] [place] [address] Mary Vicente MD [address] [facility] [address] [place] [address] (work) documented as of this encounter Procedures Procedure Name Priority Date/Time Associated Diagnosis Comments [facility] ORDER Routine 06/22/2025 2:05 PM EST documented in this encounter Results * DME Order (06/22/2025 2:05 PM EST) [facility] SUPPLIER NAME [facility] (Wound Care) [facility] DME [facility] SUPPLIER PHONE [facility] DME [facility] [place] DELIVERY STATUS Delivery Successful [facility] [place] DME [facility] DELIVERY NOTE [facility] DME [facility] REQUESTED DELIVERY DATE 06/22/2025 [facility] DME [facility] ACTUAL DELIVERY DATE 06/22/2025 [facility] DME [facility] ITEM DESCRIPTION Adaptic Petrolatum Emulsion Non-Adherent Dressing, 3 x 8 in., Box (24) [facility] Comment: Qty: 1 Substitution Status: In the event of product backorder, discontinuation, or patient preference, substitutions are permitted for wound care products on this order. [facility] ITEM DESCRIPTION MediChoice Sterile Abdominal Pads, 5 x 9 in., Box (36) [facility] Comment: Qty: 1 Substitution Status: In the event of product backorder, discontinuation, or patient preference, substitutions are permitted for wound care products on this order. [facility] ITEM DESCRIPTION [employer] Fluff Gauze Bandage Roll, Sterile, 6-ply, 4.5 in. x 4.1 yd., Each (1) [facility] DME Comment: Qty: 30 Substitution Status: In the event of product backorder, discontinuation, or patient preference, substitutions are permitted for wound care products on this order. [facility] IT[facility] DESCRIPTION Jose-Band LF Latex Free Elastic Bandage with Hook and Loop Closure, Wound Care Treatment, NS, 3 in. x 5 yd., Box (10) [facility] DME Comment: Qty: 2 Substitution Status: [...] Chronic obstructive pulmonary disease, unspecified COPD type ([facility]/HCC) Dependence on supplemental oxygen Dyspnea, unspecified type Primary hypertension Unspecified essential hypertension Congestive heart failure, unspecified HF chronicity, unspecified heart failure type Decreased pedal pulses Other symptoms involving cardiovascular system Palpitations Atrial fibrillation with rapid ventricular response (CMS/HCC) Tachycardia Unspecified tachycardia Morbid obesity ([facility]) Morbid obesity Uncontrolled type 2 diabetes mellitus with hyperglycemia, with long-term current use of insulin Type 2 diabetes mellitus with diabetic peripheral angiopathy without gangrene, with long-term current use of insulin Tobacco abuse counseling S/P gastric sleeve procedure Recurrent major depression resistant to treatment ([facility]) Smoker unmotivated to quit documented in this encounter Additional Health Concerns Assessment Noted Time PHQ-9 Depression Total Score: 0 09/14/19 25 2:29 PM EST A fall risk assessment has been complete d for the patient 09/13/2024 2:29 PM EST A Body Mass Index follow-up plan has been documented for the patient 06/22/2025 2:05 PM EST documented as of this encounter Care Teams Grief Counsellor Relationship Specialty Start Date End Date Malcolm Hayward APRN [id number] PCP - General 09/21/23 documented as of this encounter
--- OUTSIDE RECORDS SUMMARY | 2025-07-04 16:21 | XMS_ITS | Clinical Summary ---
[facility] Organization [facility] Address [address] [place] [address] Care Team Providers Care Poultry Processing Supervisor Name Role Phone Provider, No Known [...] C SCREENING Completed 04/27/2025 Insurance Care Teams Poultry Processing Supervisor Relationship Specialty Start Date End Date Provider, No Known [facility] [place] [address] PCP - General 02/11/21
--- OUTSIDE RECORDS SUMMARY | 2025-07-04 16:21 | XMS_ITS | Referral Summary ---
Author Organization [employer] ([place], [place], [place], [place], [place]) Address [address] [place] [address] Care Team Providers Care Small Arms Artillery Repairer Name Role Phone Malcolm Hayward APRN Primary Care Provider [phone] Allergies No known active allergies Medications atorvastatin [...] A B BLUE CROSS/BLUE SHIELD Care Teams Small Arms Artillery Repairer Relationship Specialty Start Date End Date Malcolm Hayward, ADALGISA [address] [place] [address] PCP - General Nurse Practitioner 12/20/24
--- OUTSIDE RECORDS SUMMARY | 2025-07-04 16:21 | XMS_ITS | Encounter Summary ---
Author Organization [facility] Address [address] [place] [address] Care Team Providers Care Quill Cleaning Machine Operator Name Role Phone Malcolm Hayward APRN Primary Care Provider [phone] Encounter Details Date Type Department Care Team (Late st Contact Info) Description 06/13/2025 Telephone Vascular Surgery [address] [place] [address] Rohith Ramires, SUPERVISOR DOG LICENSE OFFICER None Social History Tobacco Use Types Packs/Day [...] in a custodial (including now)? No 04/28/2025 [facility] [...] boot at home. Patient has seen a panel instrument repairer after discharge for wound culturing and it came back positive, patient had asked for IV ABX, but SGR team cannot write for ABX from someone elses cultures. Wraparound Facilitator should manage that, but does not want to because of recent surgery. Clinic staff has recommended multiple times via epic chat in mychart and phone calls to go to the ED if panel instrument repairer unable/unwilling totreat. Has yet to go, and [...] Description 08/03/2025 2:00 PM EST Office Visit [facility] [address] [facility] 5th Floor [address] [place] [address] Mary Vicente MD [address] [facility] [address] [place] [address] documented as of this encounter [...] documented as of this encounter Care Teams Quill Cleaning Machine Operator Relationship Specialty Start Date End Date Malcolm Hayward APRN [id number] PCP - General 09/21/23 documented as of this encounter
--- OUTSIDE RECORDS SUMMARY | 2025-07-04 16:21 | XMS_ITS | Encounter Summary ---
Author Organization Healthcare Address [address] [id number] Care Team Providers Care Blender / Cook Name Role Phone Malcolm Hayward DIGITAL ASSISTANT Primary Care Provider [phone] Reason for Visit * Reason Comments Med Refill Encounter Details Date Type Department Care Team (Late st Contact Info) Description 12/31/2023 Refill [facility] Endocrinology [address] [place] [address] Earline Loaiza APRN [address] [facility] [address] [place] [address] Type 2 diabetes mellitus (CMS/HCC) [...] [place] [facility] [address] [facility] 5th Floor [address], [address] [place] [address] Mary Vicente MD [address] [facility] [address] [place] [address] documented as of this encounter [...] documented as of this encounter Care Teams Blender / Cook Relationship Specialty Start Date End Date Malcolm Hayward APRN [id number] PCP - General 09/21/23 documented as of this encounter
--- OUTSIDE RECORDS SUMMARY | 2025-07-04 16:21 | XMS_ITS | Encounter Summary ---
Author Organization Healthcare Address [address] [id number] Care Team Providers Care Software Engineer Advisor Name Role Phone Malcolm Hayward APRN Primary Care Provider [phone] Encounter Details Date Type Department Care Team (Late st Contact Info) Description 06/12/2025 Telephone [place] [facility] [address] [facility] 5th Floor Wing [address], [address] [place] [address] Mary Vicente MD [address] [facility] [address] [place] [address] Social History Tobacco Use Types [...] a senior care (including now)? No 04/28/2025 [facility] Utilities Answer Date Recorded In the [...] Clinical Concern/Question Reason for Call: Dolly feliciano [facility] would like to speak to a nurse about patient's weight bearing status. Thank you! Has questions about a special shoe patient could use. Best contact number: Other: [phone] Optimal time of day to reach caller: [...] [place] [facility] [address] [facility] 5th Floor [address] [place] [address] Mary Vicente MD [address] [facility] [address] [place] [address] documented as of this encounter [...] documented as of this encounter Care Teams Software Engineer Advisor Relationship Specialty Start Date End Date Malcolm Hayward APRN [id number] PCP - General 09/21/23 documented as of this encounter
--- OUTSIDE RECORDS SUMMARY | 2025-07-04 16:21 | XMS_ITS | Encounter Summary ---
Author Organization [facility] Address [address] [place] [address] Care Team Providers Care Qa Architect Name Role Phone Malcolm Hayward APRN Primary Care Provider [phone] Encounter Details Date Type Department Care Team [...] in a assisted (including now)? No 04/28/2025 [facility] Utilities Answer Date Recorded In the [...] Description 08/03/2025 2:00 PM EST Office Visit [place] [facility] [address] [facility] 5th Floor Wing [address], [address] [place] [address] Mary Vicente MD [address] [facility] [address] [place] [address] documented as of this encounter [...] documented as of this encounter Care Teams Qa Architect Relationship Specialty Start Date End Date Malcolm Hayward APRN [id number] PCP - General 09/21/23 documented as of this encounter
--- OUTSIDE RECORDS SUMMARY | 2025-07-04 16:21 | XMS_ITS | Clinical Summary ---
Author Organization [employer] ([place], [place], [place], [place], [place]) Address [address] [place] [address] Care Team Providers Care Tar Distributor Operator Name Role Phone Malcolm Hayward APRN Primary Care Provider [phone] Allergies No known active allergies Medications atorvastatin [...] A B /[facility] Care Teams Tar Distributor Operator Relationship Specialty Start Date End Date Malcolm Hayward APRN [address] [id number] PCP - General Nurse Practitioner 12/20/24
--- OUTSIDE RECORDS SUMMARY | 2025-07-04 16:21 | XMS_ITS | Encounter Summary ---
Author Organization [facility] Address [address] [place] [address] Care Team Providers Care Laborer Tanbark Name Role Phone Malcolm Hayward APRN Primary Care Provider [phone] Encounter Details Date Type Department Care Team [...] in a mcc (including now)? No 04/28/2025 [facility] Utilities Answer Date Recorded In the [...] Description 08/03/2025 2:00 PM EST Office Visit [place] [facility] [address] [facility] 5th Floor [address] [place] [address] Mary Vicente MD [address] [facility] [address] [place] [address] documented as of this encounter [...] documented as of this encounter Care Teams Laborer Tanbark Relationship Specialty Start Date End Date Malcolm Hayward APRN [id number] PCP - General 09/21/23 documented as of this encounter
--- OUTSIDE RECORDS SUMMARY | 2025-07-04 16:21 | XMS_ITS | Encounter Summary ---
Author Organization Healthcare Address [address] [id number] Care Team Providers Care Acute Care Registered Nurse Name Role Phone Malcolm Hayward APRN Primary Care Provider [phone] Reason for Visit * Reason Comments Med Refill Encounter Details Date Type Department Care Team (Late st Contact Info) Description 07/07/2024 Refill [facility] [facility] [address] [place] [address] Mayra Torres PA [address] [address] Type 2 diabetes mellitus (CMS/HCC) [...] Description 08/03/2025 2:00 PM EST Office Visit [facility] [address] [facility] 5th Floor Wing [address] [place] [address] Mary Vicente MD [address] [facility] [address] [place] [address] documented as of this [...] documented as of this encounter Care Teams Acute Care Registered Nurse Relationship Specialty Start Date End Date Malcolm Hayward APRN [id number] PCP - General 09/21/23 documented as of this encounter
--- OUTSIDE RECORDS SUMMARY | 2025-07-04 16:22 | XMS_ITS | Encounter Summary ---
Author Organization Healthcare Address [address] [id number] Care Team Providers Care Tester Sound Name Role Phone Malcolm Hayward APRN Primary Care Provider Reason for Visit * Reason Onset Date Comments HCN Clinical Concern/Question 06/12/2025 Encounter Details Date Type Department Care Team (Late st Contact Info) Description 06/12/2025 Telephone [place] [facility] [address] [facility] 5th Floor [address] [place] [address] Mary Vicente MD [address] [facility] [address] [place] [address] HCN Clinical Concern/Question Social History [...] any time in the past 12 m [facility], were you homeless or living in a mcc (including now)? No 04/28/2025 [facility] [...] about it , labreport Best contact number: [phone] (mobile) Optimal time of day to reach [...] Description 08/03/2025 2:00 PM EST Office Visit [facility] [address] [facility] 5th Floor [address] [place] [address] Mary Vicente MD [address] [facility] [address] [place] [address] documented as of this encounter [...] documented as of this encounter Care Teams Tester Sound Relationship Specialty Start Date End Date Malcolm Hayward APRN [id number] PCP - General 09/21/23 documented as of this encounter
--- OUTSIDE RECORDS SUMMARY | 2025-07-04 16:23 | XMS_ITS | Encounter Summary ---
Author Organization Healthcare Address [address] [id number] Care Team Providers Care Liability Claims Manager Name Role Phone Malcolm Hayward APRN Primary Care Provider [phone] Reason for Visit * Reason Onset Date Comments HCN - Patient Message 07/03/2025 reschedule Encounter Details Date Type Department Care Team (Late st Contact Info) Description 07/03/2025 Telephone [place] [facility] [address] [facility] 5th Floor [address] [place] [address] Mary Vicente MD [address] [facility] [address] [place] [address] HCN - Patient Message (reschedule) Social History Tobacco Use Types Packs/Day Years [...] in a intermediate (including now)? No 04/28/2025 [facility] Utilities Answer Date Recorded [...] encounter Miscellaneous Notes * Telephone Encounter - Araceli Duffy - 07/03/2025 9:32 AM EST Patient Phone Message Reason for Call: Maggie requesting a return call to reschedule 08/03 appt for 1 week further out please. Nothing avail until September Best contact number and optimal time of day to reach caller: [phone] Note: Please do not reply to this [...] [place] [facility] [address] [facility] 5th Floor [address] [place] [address] Mary Vicente MD [address] [facility] [address] [place] [address] documented as of this encounter [...] of this encounter Care Teams Liability Claims Manager Relationship Specialty Start Date End Date Malcolm Hayward APRN [id number] PCP - General 09/21/23 documented as of this encounter
--- OUTSIDE RECORDS SUMMARY | 2025-07-04 16:24 | XMS_ITS | Encounter Summary ---
Author Organization [facility] Address [address] [place] [address] Care Team Providers Care Hand Rug Braider Name Role Phone Malcolm Hayward APRN Primary Care Provider [phone] Encounter Details Date Type Department Care Team [...] a long term (including now)? No 04/28/2025 [facility] Utilities Answer Date Recorded In the [...] [place] [facility] [address] [facility] 5th Floor [address] [place] [address] Mary Vicente MD [address] [facility] [address] [place] [address] documented as of this encounter [...] as of this encounter Care Teams Hand Rug Braider Relationship Specialty Start Date End Date Malcolm Hayward APRN [id number] PCP - General 09/21/23 documented as of this encounter
--- OUTSIDE RECORDS SUMMARY | 2025-07-04 16:24 | XMS_ITS | Encounter Summary ---
Author Organization [facility] Address [address] [place] [address] Care Team Providers Care Supervisor Aluminum Fabrication Name Role Phone Malcolm Hayward APRN Primary Care Provider [phone] Encounter Details Date Type Department Care Team [...] in a penitentiary (including now)? No 04/28/2025 [facility] Utilities Answer Date Recorded In [...] [place] [facility] [address] 5th [address] [place] [address] Mary Vicente MD [address] [facility] [address] [place] [address] documented as of this encounter [...] as of this encounter Care Teams Supervisor Aluminum Fabrication Relationship Specialty Start Date End Date Malcolm Hayward APRN [id number] PCP - General 09/21/23 documented as of this encounter
--- OUTSIDE RECORDS SUMMARY | 2025-07-04 16:24 | XMS_ITS | Encounter Summary ---
Author Organization [facility] Address [address] [place] [address] Care Team Providers Care Nocturnist Name Role Phone Malcolm Hayward APRN Primary Care Provider [phone] Encounter Details Date Type Department Care Team (Late st Contact Info) Description 05/24/2025 Telephone Vascular Surgery [address] [place] [address] Rohith Ramires, CATERING ASSISTANT None Social History Tobacco Use Types Packs/Day [...] a long term (including now)? No 04/28/2025 [facility] Utilities Answer Date Recorded In the past [...] [place] [facility] [address] [facility] 5th Floor [address] [place] [address] Mary Vicente MD [address] [facility] [address] [place] [address] documented as of this encounter [...] documented as of this encounter Care Teams Nocturnist Relationship Specialty Start Date End Date Malcolm Hayward APRN [id number] PCP - General 09/21/23 documented as of this encounter
--- OUTSIDE RECORDS SUMMARY | 2025-07-04 16:24 | XMS_ITS | Encounter Summary ---
Author Organization Healthcare Address [address] [place] [address] Care Team Providers Care Coater Smoking Pipe Name Role Phone Malcolm Hayward APRN Primary Care Provider [phone] Encounter Details Date Type Department Care Team ([facility] st Contact Info) Description 05/01/2025 Orders Only External Location [address] [place] [address] Provider, External Social History Tobacco Use Types [...] a residential (including now)? No 04/28/2025 [facility] Utilities Answer Date Recorded In [...] Answer Entry Date Author Precautions Environmental surveillance 05/05/2025 8:0 0 AM EDT Nitza Mishra RN documented in this encounter Plan of Treatment Upcoming Encounters Date Type Department Care Team (Late st Contact Info) Description 08/03/2025 2:00 PM EST Office Visit [facility] [address]th Floor [address] [place] [address] Mary Vicente MD [address] [facility] [address] [place] [address] documented as of this encounter [...] documented as of this encounter Care Teams Coater Smoking Pipe Relationship Specialty Start Date End Date Malcolm Hayward APRN [id number] PCP - General 09/21/23 documented as of this encounter
--- OUTSIDE RECORDS SUMMARY | 2025-07-04 16:24 | XMS_ITS | Encounter Summary ---
Author Organization Healthcare Address [address] [id number] Care Team Providers Care Oral Hygienist Name Role Phone Malcolm Hayward APRN Primary Care Provider [phone] Reason for Visit * Reason Onset Date Comments HCN Clinical Concern/Question 05/19/2025 HCN Status Update Call #1 05/19/2025 Encounter Details Date Type Department Care Team (Late st Contact Info) Description 05/19/2025 Telephone [facility] [address] [facility] 5th Floor Wing [address], [address] [place] [address] Sheila Marcano, BLAS [address] [facility] [address] [place] [address] HCN Clinical Concern/Question; HCN Status [...] in a alf (including now)? 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 Praveen denied any other needs or concerns. * Telephone Encounter - Maxi Laws RN - 05/22/2025 2:13 PM EST RN returned call and left VM with callback number verbalized. IP vascular surgery signed off 05/03;pt has not yet been seen in clinic. All questions regarding wound care will have to wait till f/u appt. * Telephone Encounter - Breonna Solis - 05/22/2025 12:33 PM EST Status Update Call #1 1st call regarding the status of the initial request. Best contact number: Other: [phone] Optimal time of day to reach caller: [...] will receive notification of the communication/outcome via [employer]. * Telephone Encounter - Diane Daniels - 05/19/2025 2:11 PM EST Clinical Concern/Question Reason for Call: Praveen from [facility] is calling to see if the patient could get a off loading boot so he could be moved to their facility or if he has to wait until his next carlos a with the clinic on 05/30/25. Please call praveen back with info. Thank you Best contact number: Other: [phone] Optimal time of day to reach caller: [...] [place] [facility] [address] 5th Floor [address] [place] [address] Mary Vicente MD [address] [facility] [address] [place] [address] documented as of this encounter [...] documented as of this encounter Care Teams Oral Hygienist Relationship Specialty Start Date End Date Malcolm Hayward APRN [id number] PCP - General 09/21/23 documented as of this encounter
--- OUTSIDE RECORDS SUMMARY | 2025-07-04 16:24 | XMS_ITS | Encounter Summary ---
Author Organization Healthcare Address [address] [id number] Care Team Providers Care Double Bottom Driver Name Role Phone Malcolm Hayward APRN Primary Care Provider [phone] Encounter Details Date Type Department Care Team (Late st Contact Info) Description 05/26/2025 Telephone Wound Care [address] [place] [address] Sheila Marcano, PA [address] [place] [address] Social History Tobacco Use Types [...] in a chcf (including now)? No 04/28/2025 [facility] Utilities Answer Date Recorded In the past [...] a culture done of his wound at [facility] and it came back positive for pseudomonas aeruginosa. She said [facility] said oral abx are not going to work, so she is wondering what she needs to do? Get in touch w/ ID, bring him to ED to be admittedfor IV abx? Asking for a call back. Thanks! Best contact number: Other: [phone] Optimal time of day to reach caller: [...] Description 08/03/2025 2:00 PM EST Office Visit [facility] [address] [facility] 5th Floor [address] [place] [address] Mary Vicente MD [address] [facility] [address] [place] [address] documented as of this encounter [...] as of this encounter Care Teams Double Bottom Driver Relationship Specialty Start Date End Date Malcolm Hayward APRN [id number] PCP - General 09/21/23 documented as of this encounter
--- OUTSIDE RECORDS SUMMARY | 2025-07-04 16:24 | XMS_ITS | Encounter Summary ---
Author Organization Healthcare Address [address] [id number] Care Team Providers Care Net Software Developer Name Role Phone Malcolm Hayward APRN Primary Care Provider [phone] Encounter Details Date Type Department Care Team ([facility] st Contact Info) Description 05/29/2025 Telephone [facility] [address] [place] [id number] Pcp, No [address] [place] [address] Social History Tobacco Use Types Packs/Day Years [...] in a intermediate (including now)? No 04/28/2025 [facility] Utilities Answer Date Recorded In the past [...] Please call with updates Best contact number: [phone] (mobile) Optimal time of day to reach caller: ANYTIME Additional comments/information from caller: None Note: Please do not reply to this message. Follow-up communication and further actions as a result of this message need to be communicated with the patient directly, if the patient is not active onMyChart. If the patient is active on MyChart, they will receive notification of the communication/outcome via [employer]. documented in this encounter Plan of Treatment Upcoming Encounters Date Type Department Care Team (Late st Contact Info) Description 08/03/2025 2:00 PM EST Office Visit [facility] [address] 5th [address] [place] [address] Mary Vicente MD [address] [facility] [address] [place] [address] documented as of this encounter [...] documented as of this encounter Care Teams Net Software Developer Relationship Specialty Start Date End Date Malcolm Hayward APRN [id number] PCP - General 09/21/23 documented as of this encounter
--- OUTSIDE RECORDS SUMMARY | 2025-07-04 16:24 | XMS_ITS | Encounter Summary ---
Author Organization [facility] Address [address] [place] [address] Care Team Providers Care Wardsperson Name Role Phone Malcolm Hayward APRN Primary Care Provider [phone] Encounter Details Date Type Department Care Team [...] in the past 12 m [facility], were you homeless or living in a snf (including now)? No 04/28/2025 [facility] Utilities [...] Description 08/03/2025 2:00 PM EST Office Visit [place] [facility] [address] [facility] 5th Floor [address] [place] [address] Mary Vicente MD [address] [facility] [address] [place] [address] documented as of this [...] documented as of this encounter Care Teams Wardsperson Relationship Specialty Start Date End Date Malcolm Hayward APRN [id number] PCP - General 09/21/23 documented as of this encounter
--- OUTSIDE RECORDS SUMMARY | 2025-07-04 16:25 | XMS_ITS | Encounter Summary ---
Author Organization [facility] Address [address] [id number] Care Team Providers Care Director Safety Council Name Role Phone Malcolm Hayward MINK SLICER Primary Care Provider [phone] Reason for Visit * Reason Comments Med Refill Encounter Details Date Type Department Care Team (Late st Contact Info) Description 12/02/2024 Refill [facility] Endocrinology [address] [place] [address] Divine Archer, MINK SLICER [address] [facility] [address] [place] [address] Social History Tobacco Use Types [...] FOR AN APPT. * Telephone Encounter - Hermila, Sylwia L, PharmD - 12/02/2024 1:04 PM EDT Refill [...] [facility] [address] [facility] 5th Floor [address] [place] [address] Mary Vicente MD [address] [facility] [address] [place] [address] documented as of this encounter [...] as of this encounter Care Teams Director Safety Council Relationship Specialty Start Date End Date Malcolm Hayward APRN [id number] PCP - General 09/21/23 documented as of this encounter
--- OUTSIDE RECORDS SUMMARY | 2025-07-04 16:25 | XMS_ITS | Clinical Summary ---
Author Organization [facility] Address [address] [place] [address] Care Team Providers Care Hoop Flaring Machine Operator Name Role Phone Malcolm Hayward APRN Primary Care Provider [phone] Allergies Active Allergy Reactions Criticality Noted Date [...] 01/11/20 25 Active Insulin Pen Needle (Pen Thurston) 31G X 5 MM [facility] USE TO INJECT INSULIN 3 TIMES PER [...] Active Continuous Glucose Sensor (Dexcom G7 Sensor) [facility] 12/11/20 25 Active HYDROcodone-acetam inophen (Girdler) 10-325 MG tablet TAKE ONE TABLET BY [...] Encounters Date Type Department Care Team Description 07/03/2025 Telephone [facility] [address] [place] [address], [address] [phone] Mary Vicente MD HCN - Patient Message (reschedule) 06/22/2025 1:40 PM EST Office Visit [facility] [address], [address] [phone] Mary Vicente MD QUINN (obstructive sleep apnea) [...] to treatment (CMS/HCC); Smoker unmotivated to quit 06/22/2025 Travel 06/16/2025 Travel 06/13/2025 Telephone Vascular Surgery [address] [place] [address] Rohith Ramires, RN 06/12/2025 Telephone [facility] [address], [address] [place] [phone] Mary Vicente MD 06/12/2025 Telephone [facility] [address], [address] [place] [phone] Mary Vicente MD HCN Clinical Concern/Question 05/29/2025 Telephone [facility] [address] [place] [phone] Pcp, No 05/26/2025 Telephone Wound Care [address] [place] [address] Sheila Marcano PA 05/24/2025 Telephone [facility] [address], [address] [place] [phone] Sheila Marcano PA HCN - Patient Message (Call request ); HCN Status Update Call #2 05/24/2025 Telephone Vascular Surgery [address] [place] [address] Rohith Ramires, LOLA 05/24/2025 Travel 05/19/2025 Telephone [facility] [address], [address] [place] [phone] Sheila Marcano PA HCN Clinical Concern/Question; HCN Status Update Call #1 05/18/2025 Travel 05/17/2025 Travel 05/01/2025 7:30 AM EDT - 05/01/2025 8:50 AM EDT Surgery [facility] OPERATING ROOM [address] [place] [address] Mary Vicente MD AMPUTATION,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 4th 05/01/2025 7:28 AM EDT Anesthesia Event [facility] [address] [place] [address] Gilberto Rivera MD Ford, Richard F, MD 05/01/2025 Orders Only External Location [address] [place] [address] Provider, External 05/01/2025 Travel 04/28/2025 Travel 04/27/2025 9:29 PM EDT - 05/18/2025 11:48 AM EST Hospital Encounter [facility] Inpatient [address] [place] [address] Jessa Law MD Chapman, Man Machado, Greg Armenta MD Oo, MD Thomas Amador, MD Rosa Nelson, Selin Black, MD Goyal, Wily R, Other chronic osteomyelitis of right foot (CMS/HCC) (Primary Dx); Diabetic foot ulcer with osteomyelitis; Uncontrolled type 2 diabetes mellitus with hyperglycemia, with long-term current use of insulin; Type 2 diabetes mellitus with diabetic peripheral angiopathy without gangrene, with long-term current use of insulin Discharge Disposition: Half-Way Facility 04/27/2025 Travel 04/19/2025 [facility] Endocrinology [address] [place] [phone] Divine Archer, ADALGISA Type 2 diabetes mellitus [...] the past 12 m [facility], were you homeless or living in a care home (including now)? No 04/28/2025 [facility] Utilities Answer Date Recorded In the past 12 months has th e [employer], gas, oil, or water company threatened to [...] [place] [facility] [address] [facility] 5th Floor Wing [address], [address] [place] [address] Mary Vicente MD [address] [facility] [address] [place] [address] Health Maintenance Due Date Last Done Comments [facility]-Medicare Annual Wellness (AWV) 1977 [facility]-Infant/Child/Adol SDOH Screenings 1977 Diabetes: Dental Exam 1987 [facility]-DTaP,Tdap,and Td Vaccines (1 - Tdap) 1996 [facility]-Hepatitis B Vaccines (1 of 3 - 19+ 3-dose series) 1996 CT Colonography 2022 Colonoscopy 2022 FIT-DNA 2022 FIT 2022 FOBT 2022 Sigmoidoscopy 2022 [facility]-Colorectal Cancer Screening 2022 [id number] Vaccine (3 - 2024- season) 2025 02/22/2021, 01/25/2021 [facility]-Influenza Vaccine (#1) 2025 [facility]-Diabetes: Hemoglobin A1C 07/29/2025, 12/12/2024, 01/13/2024, Additional history exists [facility]-Depression Screening 09/13/2025 09/13/2024, 10/2024 [facility]- SDOH Screenings 10/27/2025 [facility]-Adult SDOH [...] Procedure Name Priority Date/Time Associated Diagnosis Comments [facility] Routine 06/22/2025 2:05 PM EST POCT GLUCOSE [...] UNSOLICITED RESULTS Routine 05/03/2025 3:37 AM EDT HC HEP B CORE AB [...] * DME Order (06/22/2025 2:05 PM EST) [facility] DME [facility] SUPPLIER PHONE [facility] DELIVERY STATUS Delivery Successful [facility] DELIVERY NOTE [facility] D[facility] REQUESTED DELIVERY DATE 06/22/2025 [facility] ACTUAL DELIVERY DATE 06/22/2025 [facility] DME [facility] ITEM DESCRIPTION Adaptic Petrolatum Emulsion Non-Adherent Dressing, 3 x 8 in., Box (24) [facility] DME Comment: Qty: 1 Substitution Status: In the event of product backorder, discontinuation, or patient preference, substitutions are permitted for wound care products on this order. [facility] ITEM DESCRIPTION Med[employer] Sterile Abdominal Pads, 5 x 9 in., Box (36) [facility] Comment: Qty: 1 Substitution Status: In the event of product backorder, discontinuation, or patient preference, substitutions are permitted for wound care products on this order. [facility] ITEM DESCRIPTION [employer] Fluff Gauze Bandage Roll, Sterile, 6-ply, 4.5 in. x 4.1 yd., Each (1) [facility] Comment: Qty: 30 Substitution Status: In the event of product backorder, discontinuation, or patient preference, substitutions are permitted for wound care products on this order. [facility] ITEM DES[facility] Jose-Band LF Latex Free Elastic Bandage with Hook and Loop Closure, Wound Care Treatment, NS, 3 in. x 5 yd., Box (10) [facility] Comment: Qty: 2 Substitution Status: In the event of product backorder, discontinuation, or patient preference, substitutions are permitted for wound care products on this order. 06/22/2025 2:05 PM EST us Mary STEVENS ORDERABLES Final Result [facility] D[facility] * (ABNORMAL) POCT glucose meter (05/18/2025 8:09 AM EST) Only the most recent of96 resultswithin the time period is included. Pathologist [facility] POCT Glucose 124(H) 74 - 99 mg/dL 05/18/2025 8:11 AM EST [facility] Comment:Accuracy of a glucos e result [...] for testing. Comment 05/18/2025 8:11 AM EST [facility] Change Management Consultant ID Char Hinojosa 05/18/2025 8:11 AM EST [facility] Device ID [id number] 05/18/2025 8:11 AM EST [facility] Specimen Type POC Capillary 05/18/2025 8:11 AM EST [facility] Blood Capillary blood specimen / Unknown 05/18/2025 8:09 AM EST 05/18/2025 8:11 AM EST Wily Goyal DO LAB POINT OF CARE TE ST DOCKED DEVICE UNSOLICITED RESULTS Final Result Performing Organization Address City/State/[facility] Co de Phone Number [facility] [address] [place] [address] * ECHO, ADULT TRANSTHORACIC COMPLETE W/ CONTRAST (05/17/2025 9:51 AM EST) Pathologist [facility] BSA 3.30 m2 HANK ISCV Height 182.9 [...] Ao Diam 37 mm HANK ISCV PA MS(ACCEL) 24.6 mmHg HANK ISCV LV mean PG [...] is no recent study available for direct [id number] comparison. Left Ventricle The left ventricle is [...] is no recent study available for direct [id number] comparison. [facility] Jay Jay DO CV ECHO PROCEDURES Final Result * ECG Adult (05/16/2025 3:33 PM EST) Only the most recent of6 resultswithin the time period is included. EKG DIAGNOSIS CLASS Abnormal MUSE ECG Ventricular Rate 58 BPM MUSE ECG Atrial Rate 58 BPM MUSE ECG MS Interval 184 ms MUSE ECG QRSD Interval 158 ms MUSE ECG QT Interval 496 ms MUSE ECG QTC Interval 486 ms MUSE ECG P Amoret 30 degrees MUSE ECG R Amoret -35 degrees MUSE ECG T Wave Amoret -5 degrees MUSE ECG Diagnosis Sinus bradycardia [...] 3:33 PM EST 05/18/2025 12:15 AM EST [facility] Jay Jay DO ECG ORDERABLES Final Result MUSE ECG * (ABNORMAL) CBC and Differential (05/16/2025 4:08 AM EST) Only the most recent of12 resultswithin the time period is included. WBC Count 7.97 3.70 - 10.30 10*3/uL LAB HEMATOLOGY METHOD 05/16/2025 4:26 AM EST [facility] RBC Count 4.27(L) 4.60 - 6.10 10*6/uL LAB HEMATOLOGY METHOD 05/16/2025 4:26 AM [facility] HGB 9.5(L) 13.7 - 17.5 g/dL LAB HEMATOLOGY METHOD 05/16/2025 4:26 AM [facility] HCT 31.6(L) 40.0 - 51.0 % LAB HEMATOLOGY METHOD 05/16/2025 4:26 AM [facility] Platelet Count 264 155 - 369 10*3/uL LAB HEMATOLOGY METHOD 05/16/2025 4:26 AM [facility] MCV 74(L) 79 - 98 fL LAB HEMATOLOGY METHOD 05/16/2025 4:26 AM [facility] MCH 22.2(L) 26.0 - 32.0 pg LAB HEMATOLOGY METHOD 05/16/2025 4:26 AM [facility] MCHC 30.1(L) 30.7 - 35.5 g/dL LAB HEMATOLOGY METHOD 05/16/2025 4:26 AM [facility] RDW 17.9(H) 11.5 - 14.5 % LAB HEMATOLOGY METHOD 05/16/2025 4:26 AM [facility] MPV 9.2 8.8 - 12.5 fL LAB HEMATOLOGY METHOD 05/16/2025 4:26 AM [facility] nRBC 0.0 <=0.0 per 100 WBCs LAB HEMATOLOGY METHOD 05/16/2025 4:26 AM [facility] Differential Type Automated LAB HEMATOLOGY METHOD 05/16/2025 4:26 AM [facility] Neutrophils % 67 % LAB HEMATOLOGY METHOD 05/16/2025 4:26 AM [facility] Lymphocytes % 16 % LAB HEMATOLOGY METHOD 05/16/2025 4:26 AM [facility] Monocytes % 12 % LAB HEMATOLOGY METHOD 05/16/2025 4:26 AM [facility] Eosinophils % 3 % LAB HEMATOLOGY METHOD 05/16/2025 4:26 AM [facility] Basophils % 1 % LAB HEMATOLOGY METHOD 05/16/2025 4:26 AM [facility] Immature Granulocytes % 1 % LAB HEMATOLOGY METHOD 05/16/2025 4:26 AM [facility] Neutrophils Absolute 5.39 1.60 - [...] Final Re sult Performing Organization Address City/[facility]/ZIP Co de Phone Number [facility] [address] [place] [address] * Phosphorus, Plasma (05/16/2025 4:08 AM EST) [...] [facility] [address] [place] [address] * (ABNORMAL) Magnesium, Plasma (05/16/2025 4:08 AM EST) Only the most recent of13 resultswithin the time period is included. [facility] Magnesium, Plasma 1.8(L) 1.9 - 2.4 mg/dL 05/16/2025 4:48 AM EST [facility] Blood Venous blood specimen / Unknown Venipuncture / Unknown 05/16/2025 4:08 AM EST 05/16/2025 4:16 AM EST us Selin Lee MD LAB BLOOD ORDERABLES Final Re sult [facility] [address] [place] [address] * (ABNORMAL) Basic Metabolic Panel, Plasma (05/16/2025 4:08 AM EST) Only the most recent of12 resultswithin the time period is included. [facility] Glucose, Plasma 168(H) 74 - 99 mg/dL [...] Final Re sult Performing Organization Address City/[facility]/ZIP Co de Phone Number [facility] [address] [place] [address] * PSA, diagnostic (05/06/2025 12:27 PM EDT) PSA, Diagnostic, Serum 0.03 0.00 - 2.50 ng/mL 05/06/2025 1:10 PM EDT [facility] Blood Venous blood specimen / Unknown [...] ORDERABLES Final Result Performing Organization Address City/[facility]/ZIP Co de Phone Number [facility] [address] [place] [address] * Creatine Kinase (CK), Total (05/03/2025 6:22 [...] [facility] [address] [place] [address] * (ABNORMAL) Comprehensive metabolic panel (05/03/2025 6:22 [...] ORDERABLES Final Result Performing Organization Address City/[facility] Co de Phone Number [facility] [address] [place] [address] * Hepatitis B Surface Antibody, Quantitative (05/03/2025 3:16 AM EDT) [facility] Hepatitis B Surface Antibody, Quantitative <8.00 [...] ORDERABLES Final Result Performing Organization Address City/[facility]/ZIP Co de Phone Number [facility] [address] [place] [address] * Hepatitis A Antibody IgG (05/03/2025 3:16 AM EDT) Hepatitis A Antibody IgG Negative Negative 05/03/2025 4:28 AM EDT [facility] Blood Venous blood specimen / Unknown Venipuncture / Unknown 05/03/2025 3:16 AM EDT 05/03/2025 3:24 AM EDT us Diane Guzman MD LAB BLOOD ORDERABLES Final Result [facility] [address] [place] [address] * Hepatitis B Core Total Antibody IgG,IgM (05/03/2025 3:16 AM EDT) Pathologist [facility] Hepatitis B Core Total Antibody IgG,IgM Negative Negative 05/03/2025 4:28 AM EDT [facility] Blood Venous blood specimen / Unknown Venipuncture / Unknown 05/03/2025 3:16 AM EDT 05/03/2025 3:24 AM EDT us Diane Guzman MD LAB BLOOD ORDERABLES Final Result Performing Organization Address City/[facility]/[place] [address] * Hepatitis B Surface Antigen (05/03/2025 3:16 AM EDT) [facility] Hepatitis B Surf Antigen Negative Negative 05/03/2025 4:28 AM EDT [facility] Blood Venous blood specimen / Unknown Venipuncture / Unknown 05/03/2025 3:16 AM EDT 05/03/2025 3:24 AM EDT us Diane Guzman MD LAB BLOOD ORDERABLES Final Result Performing Organization Address City/[facility]/ZIP Co de Phone Number [facility] [address] [place] [address] * Nasopharyngeal Respiratory Panel (05/02/2025 1:05 PM EDT) [facility] Nasopharyngeal Respiratory PCR Interpretation Not [...] Respiratory PCR Panel is performed using the Viewsterlex instrument. This test is FDA approved for use with Nasopharyngeal swabs only. This test is used for clinical purposes. It should not be regarded as investigational or for research. The [facility] Microbiology [facility] is certified under the Clinical Laboratory Improvement Amendments of 1988 (CLIA-88) as qualified to perform high complexity clinical laboratory testing. Diane Guzman MD LAB MICROBIOLOGY - GENERAL ORDERABLES Final Result [facility] [address] [place] [address] * Surgical Pathology Exam (05/01/2025 8:13 AM EDT) Case Report Surgical Pathology Case: [id number] Authorizing Provider: Mary Vicente MD Collected: 05/01/2025 [...] Information Other chronic osteomyelitis of right foot ([facility]) [M86.671] 05/09/2025 9:56 AM EDT [facility] [...] The wound extends into the underlying bone. Stretching Press Operator sections are submitted as follows: A1-A2: [...] LAB PATHOLOGY ORDERABLES Edited Result - Final [facility] [address] [place] [address] * PB POINT OF CARE IMAGING PLACEHOLDER [...] monitoring: continuous pulse ox, heart rate and phototypesetting equipment monitor Block type: adductor canal and popliteal [...] ORDERA BLES Final Result Performing Organization Address City/State/[facility] Co de Phone Number BLOOD BANK [address] [place] [address], [place] * POC Imaging (05/01/2025) Anatomical Region Laterality Modality Pelvis Other 05/01/2025 External Provider IMG POINT OF CARE ULTRASOUND [...] Fin al Result Performing Organization Address City/[facility] de Phone Number [facility] [address] [place] [address] * TSH (04/29/2025 3:04 AM EDT) Thyroid Stimulating Hormone, Plasma 1.58 0.40 - 4.20 uIU/mL 04/29/2025 3:55 AM EDT [facility] Blood Venous blood specimen / Unknown Venipuncture / Unknown 04/29/2025 3:04 AM EDT 04/29/2025 3:19 AM EDT us Sy De La Fuente APRN, DNP LAB BLOOD ORDERABLES Fin al Result Performing Organization Address [facility] Phone Number [facility] [address] [place] [address] * (ABNORMAL) Hemoglobin A1c (04/29/2025 3:04 AM [...] Adults <6.0% Children and Adolescents <7.5% Source: [place] [employer]. Standards of medical care in diabetes,2017. Diabetes Care.2017:40 (suppl 1):S1-S135. us [employer] DONATION SPECIALIST, DNP LAB BLOOD ORDERABLES Fin al Result [facility] [address] [place] [address] * Folate (04/29/2025 3:04 AM EDT) Folate, Serum 10.5 >4.6 ng/mL 04/29/2025 4:05 AM EDT [facility] Blood Venous blood specimen / Unknown Venipuncture / Unknown 04/29/2025 3:04 AM EDT 04/29/2025 3:20 AM EDT us Sy De La Fuente APRN, DNP LAB BLOOD ORDERABLES Fin al Result Performing Organization Address [facility] Co de Phone Number [facility] [address] [place] [address] * Ferritin (04/29/2025 3:04 AM EDT) Ferritin, Serum 40 20 - 400 ng/mL 04/29/2025 4:06 AM EDT [facility] Blood Venous blood specimen / Unknown Venipuncture / Unknown 04/29/2025 3:04 AM EDT 04/29/2025 3:20 AM EDT us Sy De La Fuente APRN, DNP LAB BLOOD ORDERABLES Fin al Result Performing Organization Address City/[facility]/ZIP Co de Phone Number [facility] [address] [place] [address] * Vitamin B12 (04/29/2025 3:04 AM EDT) Vitamin B12, Serum 338 210 - 1,033 pg/mL 04/29/2025 4:06 AM EDT [facility] Blood Venous blood specimen / Unknown Venipuncture / Unknown 04/29/2025 3:04 AM EDT 04/29/2025 3:20 AM EDT us Sy De La Fuente APRN, DNP LAB BLOOD ORDERABLES Fin al Result Performing Organization Address City/[facility]/ZIP Co de Phone Number [facility] [address] [place] [address] * Cortisol (04/29/2025 3:04 AM EDT) Cortisol 2.80 Before 10am: 3.7 - 19.4. After 5pm: 2.9 - 17.3 ug/dL 04/29/2025 4:22 AM EDT [facility] Comment:Testing performed on [employer], standardized against [facility] Reference Standard concentration values assigned by LC-MS/MS and verified by BCR 192 and BCR 193 certified reference materials. Blood Venous blood specimen / Unknown Venipuncture / Unknown 04/29/2025 3:04 AM EDT 04/29/2025 3:19 AM EDT us Sy De La Fuente DONATION SPECIALIST, DNP LAB REF LAB BLOOD AND FL UID ORD Final Result [facility] [address] [place] [address] * VAS Ankle Brachial Index - GABBI [...] are demonstrated at the levels of the OUTREACH COUNSELOR and DPA. Segmental pressures are within normal limits with a OUTREACH COUNSELOR GABBI of 1.1 (172 mmHg) and a DPA GABBI of 1.0 (149 mmHg). Digit pressures are of 122 mmHg. Left: Multiphasic waveforms are demonstrated at the levels of the OUTREACH COUNSELOR and DPA. Segmental pressures are within normal limits with a OUTREACH COUNSELOR GABBI of 1.1 (164 mmHg) and a DPA GABBI of 1.0 (153 mmHg). Digit pressures are of 151 mmHg. Procedure Note Chris Schaefer MD - 04/28/2025 CLINICAL INDICATION: Diabetic foot ulcer TECHNIQUE: Non-invasive, continuous wave Doppler exam with segmental pressures andspectral analysis of the lower extremity was performed. COMPARISON: None. FINDINGS: Right: Multiphasic waveforms are demonstrated at the levels of the OUTREACH COUNSELOR andDPA. Segmental pressures are within normal limits with a OUTREACH COUNSELOR GABBI of 1.1(172 mmHg) and a DPA GABBI of 1.0 (149 mmHg). Digit pressures are of 122mmHg. Left: Multiphasic waveforms are demonstrated at the levels of the OUTREACH COUNSELOR andDPA. Segmental pressures are within normal limits with a OUTREACH COUNSELOR GABBI of 1.1(164 mmHg) and a DPA [...] on04/28/2025 4:14 PM Sy De La Fuente DONATION SPECIALIST, DNP CV VASCULAR PROCEDURES F inal Result [...] and its performance characteristics determined by the [facility] Clinical Microbiology Laboratory. Although the media is FDA-approved, it is not FDA-approved for all specimen types submitted. The FDA has determined that such clearance or approval is not necessary. This test is used for surveillance purposes. It should not be regarded as investigational or for research. The [facility] Clinical [facility]biology [facility] is certified under the Clinical Laboratory Improvement Amendments of 1988 (CLIA-88) as qualified to perform high complexity clinical laboratory testing. Sy De La Fuente APRN, DENISE LAB MICROBIOLOGY - GENER AL ORDERABLES Final Result Performing Organization Address City/[facility]/ZIP Co de Phone Number [facility] [address] [place] [address] * Lavender Top (04/28/2025 8:13 AM EDT) Extra Hold for add-ons 04/28/2025 11:01 AM EDT [facility] Comment:Auto resulted. Blood Venous blood specimen / Unknown 04/28/2025 8:13 AM EDT 04/28/2025 8:19 AM EDT Marjorie Myers MD LAB BLOOD ORDERABLES Final Resul t [facility] [address] [place] [address] * Light Green Top (04/28/2025 8:13 AM EDT) Extra Hold for add-ons 04/28/2025 11:01 AM EDT [facility] Comment:Auto resulted. Blood Venous blood specimen / Unknown 04/28/2025 8:13 AM EDT 04/28/2025 8:19 AM EDT us Marjorie Myers MD LAB BLOOD ORDERABLES Final Resul t Performing Organization Address City/[facility]/ZIP Co de Phone Number [facility] [address] [place] [address] * APTT (04/28/2025 8:13 AM EDT) aPTT 32 25 - 35 sec 04/28/2025 8:33 AM EDT [facility] Blood Venous blood specimen / Unknown Venipuncture / Unknown 04/28/2025 8:13 AM EDT 04/28/2025 8:18 AM EDT us Sy De La Fuente APRN, DENISE LAB BLOOD ORDERABLES Fin al Result Performing Organization Address [facility] [place] [address] * (ABNORMAL) PT/INR (04/28/2025 8:13 AM EDT) [...] INR 2.5 to 3.5 Prevention of recurrent FL INR 2.5 to 3.5 us Sy De La Fuente APRN, DENISE LAB BLOOD ORDERABLES Fin al Result Performing Organization Address City/[facility]/[place] [address] * CT Foot Right w IV Contrast [...] this written report. Preliminary report signed by Hairtha Govea DO on 04/28/2025 5:19AM By electronically [...] IMG XR PROCEDURES Final Resu lt * Blood Culture (Aerobic/Anaerobet Set) (04/27/2025 10:16 [...] [facility] [address] [place] [address] * (ABNORMAL) Blood gas, venous (04/27/2025 10:16 [...] ORDERABLES Final R esult Performing Organization Address City/[facility]/ZIP Co de Phone Number [facility] [address] [place] [address] * ED HIV 1/2 Antibody/Antigen Screen w/Reflex [...] Final Res ult Performing Organization Address City/[facility]/ZIP Co de Phone Number [facility] [address] [place] [address] * Beta-Hydroxybutyric Acid (04/27/2025 9:37 PM EDT) Beta-Hydroxybut yric Acid, Plasma 0.23 <=0.27 mmol/L 04/27/2025 10:56 PM EDT [facility] Blood Venous blood specimen / Unknown Venipuncture / Unknown 04/27/2025 9:37 PM EDT 04/27/2025 9:40 PM EDT Jessa Cesar MD LAB BLOOD ORDERABLES Final R esult Performing Organization Address [facility] Co de Phone Number [facility] [address] [place] [address] * (ABNORMAL) Procalcitonin (04/27/2025 9:37 PM EDT) [...] predict 28 day mortality risk. Please consult www.ptcpdb-fgz-zkqqxmajvy.com for more information. Test performed at [facility]. us Sy De La Fuente APRN, DNP LAB BLOOD ORDERABLES Fin al Result Performing Organization Address City/[facility]/ZIP Co de Phone Number [facility] [address] [place] [address] * Hepatitis C Antibody - ED (04/27/2025 9:37 PM EDT) Pathologist [facility] Hepatitis C Antibody Negative Negative 04/27/2025 10:41 PM EDT [facility] Blood Venous blood specimen / Unknown Venipuncture / Unknown 04/27/2025 9:37 PM EDT 04/27/2025 10:00 PM EDT us Pool Jean MD LAB BLOOD ORDERABLES Final Res ult Performing Organization Address City/[facility]/ZIP Co de Phone Number [facility] [address] [place] [address] * (ABNORMAL) Sed rate, automated (04/27/2025 9:37 PM EDT) Sedimentation Rate >111(H) <15 mm/hr 2024 11:10 PM EDT [facility] Blood Venous blood specimen / Unknown Venipuncture / Unknown 04/27/2025 9:37 PM EDT 04/27/2025 9:40 PM EDT us Jessa Cesar MD LAB BLOOD ORDERABLES Final R esult Performing Organization Address [facility] Co de Phone Number [facility] [address] [place] [address] * (ABNORMAL) C-reactive protein (04/27/2025 9:37 PM [...] ORDERABLES Final Res ult Performing Organization Address [facility] Co de Phone Number [facility] [address] [place] [address] from Last 3 Months Insurance MEDICARE Advance [...] updated to appropriate status: Yes Care Teams Hoop Flaring Machine Operator Relationship Specialty Start Date End Date Malcolm Hayward APRN [phone] PCP - General 09/21/23
--- OUTSIDE RECORDS SUMMARY | 2025-07-04 16:25 | XMS_ITS | Encounter Summary ---
Author Organization Healthcare Address [address] [id number] Care Team Providers Care Scrap Drop Engineer Name Role Phone Malcolm Hayward APRN Primary Care Provider [phone] Reason for Visit * Reason Onset Date Comments HCN - Patient Message 05/24/2025 Call pankaj morrissey HCN Status Update Call #2 05/24/2025 Encounter Details Date Type Department Care Team ([place] st Contact Info) Description 05/24/2025 Telephone [facility] [address] [facility] 5th Floor [address] [place] [address] Sheila Marcano, PA [address] [facility] [address] [place] [address] HCN - Patient Message (Call [...] in a intermediate (including now)? No 04/28/2025 [facility] Utilities Answer Date Recorded In the [...] of the initial request. Best contact number: [phone] Optimal time of day to reach caller: [...] optimal time of day to reach caller: [phone] Note: Please do not reply to this [...] Description 08/03/2025 2:00 PM EST Office Visit [facility] [address] [place] [address] Mary Vicente MD [address] [facility] [address] [place] [address] documented as of this encounter [...] documented as of this encounter Care Teams Scrap Drop Engineer Relationship Specialty Start Date End Date Malcolm Hayward APRN [id number] PCP - General 09/21/23 documented as of this encounter
[2025-07-04 16:29] LABS: Microscopic, Urine URINE MICROSCOPIC (MICROSCOPIC)
[2025-07-04 16:56] LABS: Bilirubin,Urine Negative (Negative); Color,Urine YELLOW (Yellow); Glucose,Urine (UA) Negative (Negative); Ketones,Urine Negative (Negative); Leukocyte Esterase,Urine 3+ (Negative); PH,Urine 7.5 (5.0-8.5); Protein,Urine Negative (Negative); Specific Gravity, Urine 1.010 (1.005-1.030); Urobilinogen,Urine 0.2 EU/dl (0.2)
[2025-07-04 17:02] LABS: Bacteria,Urine 4+ /lpf
== END 2025-07-04 23:59 | disposition home or self-care (01) ==
LOC: LAB 16:19
PROVIDERS: PCP Nurse Practitioner Family; Visit Provider Nurse Practitioner Family
DX: N39.0 Urinary tract infection, site not specified (principal)
CPT/HCPCS: 81001; 87086; 87088; 87186

== ENCOUNTER 2025-07-10 11:41 | Outpatient (CLI) | payer MEDICARE, BC, SELFPAY ==
--- OUTSIDE RECORDS SUMMARY | 2025-04-27 20:29 | XMS_ITS | Encounter Summary ---
Author Organization [facility] Address [address] [place] [address] Care Team Providers Care Rough Rice Grader Name Role Phone DontaemyrtleMalcolm camejo ADALGISA Primary Care Provider [phone] Reason for Referral * Consultation (Routine) - Authorized Specialty Diagnoses / Procedures Referred By Contac t Referred To Contact Endocrinology Diagnoses Uncontrolled type 2 diabetes mellitus with hyperglycemia, with long-term current use of insulin Type 2 diabetes mellitus with diabetic peripheral angiopathy without gangrene, with long-term current use of insulin Martina Foote PA [address] [place] [address] Phone: tel: fax: Referral ID Status Reason Start Date Expiration Date Visits Requested Visits Authorized [id number] Authorized Specialty Services Required 11/04/2026 1 1 * Consultation (Routine) - Closed Specialty Diagnoses / Procedures Referred By Contact Referred To Contact [facility] Diagnoses Diabetic foot ulcer with osteomyelitis Diane Guzman MD [address] [place] [address] Phone: tel:[phone] fax:[phone] [address] [facility] 5th Floor [address] [place] [address] Phone: tel: fax: Referral ID Status Reason Start Date Expiration Date V isits Requested Visits Authorized [id number] Closed Specialty Services Required 05/03/2025 11/02/2026 1 1 Reason for Visit * Reason Comments Wound Check * Auth/Cert (Routine) Specialty Diagnoses / Procedures Referred By Anish t Referred To Contact Diagnoses Diabetic foot ulcer with osteomyelitis Greg Lee MD [address] [place] [address] Phone: tel: fax: [facility] Emergency Department [address] [place] [address] Phone: tel: Referral ID Status Reason Start Date Expiration Date Visits Re quested Visits Authorized [id number] 1 1 Encounter Details Date Type Department Care Team (Latest Contact Info) Description 04/27/2025 9:29 PM EDT - 05/18/2025 11:48 AM EST Hospital Encounter [facility] [address] [place] [address] Jessa Siu MD [address] [place] [address] Man Garcia, DO [address] [place] [address] Gerg Lee MD [address] [place] [address] Marjorie Myers MD [address] [place] [address] Diane Guzman MD [address] [place] [address] Selin Lee MD [address] [place] [address] Wily Goyal, DO [address] [place] [address] Other chronic osteomyelitis of right foot (CMS/HCC) (Primary Dx); Diabetic foot ulcer with osteomyelitis; Uncontrolled type 2 diabetes mellitus with hyperglycemia, with long-term current use of insulin; Type 2 diabetes mellitus with diabetic peripheral angiopathy without gangrene, with long-term current use of insulin Discharge Disposition: Intermediate Facility Social History Tobacco Use Types Packs/Day [...] time in the past 12 m [facility], were you homeless or living in a residential (including now)? No 04/28/2025 [facility] Utilities Answer Date Recorded In the past [...] documented in this encounter Functional Status * PT Therapeutic Procedures Time Entry Question Answer Date of Assessment Author Therapeutic Activity Time Entry 25 11:56 AM EST Corey Lizarraga IV * Result of Injury Answer Date of Assessment Author No 05/10/2025 2:13 PM EDT Rodrick Lynn RN * Work-Related Injury Answer Date of Assessment Author No 05/10/2025 2:13 PM EDT Rodrick Lynn RN * OT Therapeutic Procedures Time Entry Question Answer Date of Assessment Author Therapeutic Exercise Time Entry 10 5 11:58 AM EST Joceline King * HEENT Question Answer Date of Assessment Author ANAND (FRANCISCA) X 05/18/2025 8:00 AM EST Kylee Miranda RN R Eye Mildly impaired vision 05/18/2025 8:00 AM Kylee Ravi RN L Eye Mildly impaired vision 05/18/2025 8:00 AM Kylee Ravi RN Throat Intact 05/11/2025 4:30 PM Tamar Castrejon RN Tongue [place];Moist 05/11/2025 4:30 PM Tamar Castrejon RN Mucous Membrane(s) Moist;[place];Intact 05/11/2025 4:30 P M Tamar Scruggs RN Teeth Missing teeth 05/18/2025 8:00 AM Kylee Wade RN Neck Trachea midline;Symmetrical 05/11/2025 4:30 PM Tamar Scruggs RN Lips Intact 05/11/2025 4:30 PM Tamar Castrejon RN * BMI (Calculated) Answer Date of Assessment Author 74.8 05/18/2025 5:06 AM Gualberto Atwood RN * Percent Excess Weight Loss Answer Date of Assessment Author 0 04/27/2025 10:46 PM Stella Correa RN * Total Weight Change Percent Answer Date of Assessment Author 2222 05/18/2025 5:06 AM Gualberto Atwood RN * Weight Change Since Preop Answer Date of Assessment Author 249.44 05/18/2025 5:06 AM Gualberto Atwood RN * Initial Excess Weight Answer Date of Assessment Author -80.74 04/27/2025 10:46 PM Stella Correa RN * IBW in lbs (Bariatric) Answer Date of Assessment Author 178 04/27/2025 10:46 PM Stella Correa RN * Weight Change Since Last Visit Answer Date of Assessment Author 0.4 05/18/2025 5:06 AM Gualberto Atwood RN * IBW in kg (Bariatric) Answer Date of Assessment Author 80.74 04/27/2025 10:46 PM Stella Correa RN * Percent of IBW Answer Date of Assessment Author 11,979.22 04/27/2025 10:46 PM Stella Correa RN * EBW (kg) Answer Date of Assessment Author 9,669.73 04/27/2025 10:46 PM EDStella Grider RN * EBW (lbs) Answer Date of Assessment Author 9,660.9 04/27/2025 10:46 PM Stella Correa RN * Progress Answer Date of Assessment Author improving 05/18/2025 11:31 AM Kylee Ravi RN * Infection Management Answer Date of Assessment Author aseptic technique maintained 05/16/2025 7:49 PM Ivan Atwood RN * Activity Assistance Provided Answer Date of Assessment Author assistance, 2 people 05/18/2025 11:31 AM Kylee Leach RN * Adaptive Equipment Use Answer Date of Assessment Author used independently 05/15/2025 11:48 AM Santy Espino RN * Supportive Measures Answer Date of Assessment Author active listening utilized;se lf-care encouraged 05/17/2025 9:53 PM Ivan Atwood RN * Oral Nutrition Promotion Answer Date of Assessment Author physical activity promoted 05/15/2025 11:48 AM Santy Santiago, LOLA * Pressure Reduction Techniques Answer Date of Assessment Author frequent weight shift encouraged 05/17/2025 9:53 PM Ivan Atwood RN * Fever Reduction/Comfort Measures Answer Date of Assessment Author lightweight bedding;lightweight clothing 025 7:49 PM Ivan Atwood RN * Pressure Reduction Devices Answer Date of Assessment Author positioning supports utilized 05/13/2025 8:00 PM Asiya Bajwa RN * Diversional Activities Answer Date of Assessment Author television 05/15/2025 11:48 AM Santy Alfredo, RN * Nutrition Interventions Answer Date of Assessment Author food preferences provided 05/15/2025 11:48 AM Santy Blank, RN * Positioning/Transfer Devices Answer Date of Assessment Author pillows 05/16/2025 7:49 PM Gualberto Atwood RN * Infection Prevention Answer Date of Assessment Author environmental surveillance performed;equipment surfaces disinfected;hand hygiene promoted;rest/sleep promoted;personal protective equipment utilized 05/01/2025 11:30 AM EDT Rocío Crandall RN * Outcome Evaluation Answer Date of Assessment Author Reviewed of night plan of ca re with pt. pt verbalized understanding. 05/14/2025 10:36 PM EST Florina Hinojosa RN * Family/Support System Care Answer Date of Assessment Author self-care encouraged 05/16/2025 7:49 PM EST Ivan Slaughter RN * Sleep/Rest Enhancement Answer Date of Assessment Author consistent schedule promoted ;awakenings minimized;family presence promoted;regular sleep/rest pattern promoted;natural light exposure provided 05/18/2025 11:31 AM EST Kylee Gonzalez RN * Skin Protection Answer Date of Assessment Author incontinence pads utilized;s ilicone foam dressing in place;skin sealant/moisture barrier applied 05/13/2025 8:00 PM EDT Asiya Nix RN * Self-Care Promotion Answer Date of Assessment Author independence encouraged 05/16/2025 7:49 PM EST Ivan Wynn RN * Safety Interventions Question Answer Date of Assessment Author Safety Precautions/Falls Reduction assistive device/personal items within reach 04/27/2025 9:42 PM EDT Stella Daniels RN * Safety Promotion Question Answer Date of Assessment Author Medication Review/Management medications reviewed 05/06/2025 8:00 PM EDT Judd Zavaleta RN * Individualization Question Answer Date of Assessment Author Patient-Specific Considerations BMI greater than 40;limb precautions 05/01/2025 9:10 AM EDT Jada Ring RN * Goal: Anesthesia/Sedation Recovery Question Answer Date of Assessment Author Outcome Anesthesia/Sedation Recovery progressing 05/01/2025 9:10 AM EDT Jada Ring RN * General Emergency Care CPG Interventions Question Answer Date of Assessment Author Coping Interventions anticipatory guidan ce provided;care explained to patient/family prior to performing;safe, supportive environment facilitated 04/27/2025 9:42 PM LOGANT Stella Daniels RN General Care Management calm environment promoted;family presence promoted 04/27/2025 9:42 PM EDT Stella Daniels RN * Discharge Needs Assessment Question Answer Date of Assessment Author Discharge Facility/Level of Care Needs 62-Rehab facilty 05/18/2025 8:00 AM EST Chayo Jennings RN Equipment Needed After Discharge none 05/18/2025 8:00 AM Chayo Gordon RN Equipment Currently Used at Home cane, straight;walker, rolling 05/18/2025 8:00 AM Chayo Gordon RN Anticipated Changes Related to Illness inability to care for self 05/18/2025 8:00 AM Chayo Gordon RN Transportation Anticipated medical transport 05/18/2025 8:00 AM Chayo Gordon RN Transportation Concerns none 05/18/20 8:00 AM Chayo Gordon RN Current Discharge Risk chronically ill 8:00 AM Chayo Gordon RN Concerns to be Addressed discharge planning 12/2024 8:00 AM Chayo Gordon RN Readmission Within the Last 30 Days no previous admission in last 30 days 05/18/2025 8:00 AM Chayo Gordno RN Patient/Family Anticipated Services at Transition rehabilitation services 05/18/2025 8:00 AM Chayo Gordon RN Patient's Choice of Community Agency(s) [facility] 05/18/2025 8:00 AM Chayo Gordon RN Patient/Family Anticipates Transition to inpatient rehabilitation facility 05/18/2025 8:00 AM Chayo Gordon RN Offered/Gave Vendor List yes 025 8:00 AM Chayo Gordon RN Does the patient need discharge transport arranged? Yes 05/18/2025 8:00 AM Chayo Gordon RN Has discharge transport been arranged? Yes 05/18/2025 8:00 AM Chayo Gordon RN What day is the transport expected? [id number] 05/18/2025 8:00 AM Chayo Gordon RN What time is the transport expected? [id number] 05/18/2025 8:00 AM Chayo Gordon RN Who is requesting discharge planning? Provider 05/18/2025 8:00 AM Chayo Gordon RN * Goal: Optimal Comfort and Wellbeing Question Answer Date of Assessment Author Outcome Optimal Comfort and Wellbeing progressing 05/01/2025 9:10 AM Jada Christensen RN Elevated Risk Identified situational anxiety;pain 05/01/2025 9:10 AM EDT Jada Ring RN * Coping Strategies Question Answer Date of Assessment Author Trust Relationship/Rapport care explained;emotional support provided;empathic listening provided;questions answered;reassurance provided;thoughts/feelin gs acknowledged 05/06/2025 8:00 PM EDT Judd Zavaleta RN * Respiratory Interventions Question Answer Date of Assessment Author Airway/Ventilation Management oxygen therapy provided;position adjusted 05/06/2025 8:00 PM EDT Judd Zavaleta RN * Goal: Minimized Risk/Safety Maintenance Question Answer Date of Assessment Author Elevated Risk Identified VTE (venous thromboembolism);infect ion 05/01/2025 9:10 AM EDT Jada Ring RN Outcome Minimized Risk and Safety progressing 05/01/2025 9:10 AM EDT Jada Ring RN * Goal: Physiologic Homeostasis Question Answer Date of Assessment Author Elevated Risk Identified respiratory compromise;postoperati ve nausea and vomiting 05/01/2025 9:10 AM EDT Jada Ring RN Outcome Physiologic Homeostasis progressing 05/01/2025 9:10 AM EDT Jada Ring RN Nausea/Vomiting Interventions sips of clear liquids given;nausea triggers minimized 05/01/2025 9:10 AM EDT Jada Ring RN * Acuity/Destination Question Answer Date of Assessment Author Patient Acuity 3 04/27/2025 9:06 PM EDT Riley Chappell RN * PACU Interventions Question Answer Date of Assessment Author Warming Device Warm blankets 05/01/2025 9:10 AM EDT Jada Cummins RN * Weight Change 24 hrs Answer Date of Assessment Author 2 05/18/2025 5:06 AM Gualberto Atwood, LOLA * Precautions Question Answer Date of Assessment Author Right Lower Extremity Weight Bearing Status Non-Weight Bearing 05/12/2025 12:32 PM EDT Isiah Mckeon Medical Precautions Fall precautions 05/12/2025 12:32 PM EDT Isiah Mckeon * Date of OT Session Question Answer Date of Assessment Author OT Initials SG 05/17/2025 11:58 AM Joceline Valle Date of OT Session [id number] 05/17/2025 11:58 AM Joceline Gutierrez * Participants in Care Question Answer Date of Assessment Author Family/Caregiver Spouse 04/28/2025 9:01 AM EDT Claudio Barrios Family/Caregiver Present N 05/17/2025 11:58 AM Jocelnie Guzman * Presentation Question Answer Date of Assessment Author Lines and Tubes Telemetry;Wound vac;Urinary catheter;PICC 05/17/2025 11:58 AM Joceline Guzman Pre-Session Supine;Head of bed elevated;Lines intact 05/17/2025 11:58 AM Joceline Guzman Post-Session Supine;Head of bed elevated;Lines intact;RN notified;Call light in reach 05/17/2025 11:58 AM Joceline Guzman Pre-Session Comments RN consented to treatment 05/17/2025 11:58 AM Joceline Guzman Post-Session Comments Pt positioned for comfort, all needs in reach. 05/17/2025 11:58 AM Joceline Guzman * JHHLM Question Answer Date of Assessment Author [facility] Daily Mobility Score 3 05/17/2025 11 :58 AM Joceline Guzman * Sensation Question Answer Date of Assessment Author Light Touch: Right Upper Extremity Intact 2024 12:32 PM EDT Isiah Mckeon * Sensation Question Answer Date of Assessment Author Light Touch: Left Upper Extremity Intact 025 12:32 PM EDT Isiah Mckeon * Sensation Question Answer Date of Assessment Author Light Touch: Right Lower Extremity Absent 2024 12:32 PM EDT Isiha Mckeon * Sensation Question Answer Date of Assessment Author Light Touch: Left Lower Extremity Absent 025 12:32 PM EDT Isiah Mckeon * Bed Mobility Interventions Question Answer Date of Assessment Author Bed Mobility Interventions Verbal cues provided for hand/body positioning and sequencing to/from EOB. Increased time required for sequencing 05/17/2025 11:56 AM Corey Burr IV * Bed Mobility Exam: Scooting/Bridging Question Answer Date of Assessment Author Level of Greenlee Contact guard 05/17/2025 11:58 A M Joceline Guzman Physical/Nonphysical Assist Verbal Cues;Minimal cues 05/17/2025 11:58 AM Joceline Guzman Assistive Device Overhead trapeze 05/17/2025 11:58 AM Joceline Guzman * Bed Mobility Exam: Rolling/Turning Question Answer Date of Assessment Author Level of Greenlee Contact guard 05/17/2025 11:56 AM Corey Burr IV Physical/Nonphysical Assist Verbal Cues;Set-up required;Minimal cues 05/17/2025 11:56 AM Corey Burr IV Assistive Device Bed rails;Other 05/17/2025 11:5 6 AM Corey Burr IV * Bed Mobility Exam: Supine to Sit Question Answer Date of Assessment Author Level of Greenlee Minimum assist (75 % patient's effort) 05/17/2025 11:58 AM Joceline Guzman Physical/Nonphysical Assist HOB elevated;Verbal Cues;Minimal cues 05/17/2025 11:58 AM Joceline Guzman Assistive Device Overhead trapeze 05/17/2025 11:58 AM Joceline Guzman * Bed Mobility Exam: Sit to Supine Question Answer Date of Assessment Author Level of Greenlee Stand-by assist 05/17/2025 11:58 AM Joceline Guzman Physical/Nonphysical Assist Verbal Cues;Minimal cues 05/17/2025 11:58 AM Joceline Guzman Assistive Device Overhead trapeze 05/17/2025 11:58 AM Joceline Guzman * Transfer Exam: Sit to stand Question Answer Date of Assessment Author Level of Greenlee Maximum assist (25 % patient's effort) 05/17/2025 11:58 AM Joceline Guzman Physical/Nonphysical Assist Verbal Cues;Nonverbal cues (demo/gestures);Addit ional assist utilized for safety;Set-up required;Minimal cues 05/17/2025 11:58 AM Joceline Guzman Assistive Device Walker, rolling 05/17/2025 11:58 AM Joceline Reddy * Transfer Exam: Stand to Sit Question Answer Date of Assessment Author Level of Greenlee Maximum assist (25 % patient's effort) 05/17/2025 11:58 AM Joceline Guzman Physical/Nonphysical Assist Verbal Cues;Nonverbal cues (demo/gestures);Addit ional assist utilized for safety;Minimal cues 05/17/2025 11:58 AM Joceline Guzman Assistive Device Walker, rolling 05/17/2025 11:58 AM E Joceline Doran * Transfer Exam: Bed to Chair/Chair to Bed Question Answer Date of Assessment Author Type of Transfer Overhead lift 05/04/2025 10:4 1 AM EDT Karlie Dotson Level of Greenlee Dependent 05/04/2025 10:41 AM EDT Karlie Dotson Physical/Nonphysical Assist Additional assist utilized for safety;Verbal Cues;Nonverbal cues (demo/gestures);Minima l cues 05/04/2025 10:41 AM EDT Karlie Dotson Assistive Device Sliding board 05/07/2025 11:4 6 AM EDT Tonia Nguyen * Interventions Question Answer Date of Assessment Author Transfer Interventions Transfers perform ed x 4 each from EOB. Pt able [...] to improve dizziness recovery. Increased time required between attempts for recovery 2/2 to fatigue/dizziness. Verbal cues provided for hand/foot placement, sequencing, weight shifting, appropriate use of DEFENSE ANALYST, and maintaining NWB on RLE. Tactile cues provided to assist in sequencing and weight shifting. 05/17/2025 11:56 AM Corey Burr IV * Interventions Question Answer Date of Assessment Author Balance Interventions Pt tolerated sitti ng upright at EOB for ~10 minutes with no LOB episodes. 04/28/2025 9:03 AM EDT Maribel Perea * Postural Appearance Question Answer Date of Assessment Author Posture WFL;Forward head 05/17/2025 11:56 AM Corey Burr IV * Interventions Question Answer Date of Assessment Author Self-Care Interventions OT provided extr a time and min VC's for patient to complete ADL tasks. Pt positioned upright at edge of bed in prep for seated and standing level ADL tasks, dizziness reported initially with BP captured at 144/98 (110), pt maintaining sitting balance with SBA and reported dizziness subsided after two minutes. Pt then completed x3 reps of sit to stand to isabella RW with max A x2 persons each time, able to maintain NWB in RLE each time without cueing, pt supporting self with UE's on walker. Technique improving with each repetition and rest breaks encouraged between trials for improved activity tolerance. Pt encouraged to transition to sitting EOB for meals to increase overall ADL independence. 05/12/2025 12:31 PM Beatriz Starks * UE Dressing Question Answer Date of Assessment Author UE Dressing Interventions Pt doffed hosp ital gown and donned clean gown with s/u 05/17/2025 11:58 AM Joceline Guzman UE Dressing Where Assessed Edge of bed 05/17/2025 11: 58 AM Joceline Guzman ULouise Dressing Level of Assistance Setup;SBA 05/17/2025 11:58 AM Joceline Guzman * Lower Extremity Dressing Question Answer Date of Assessment Author LE Dressing Interventions Pt required De p A to don L non skid sock sitting EOB. 05/17/2025 11:58 AM Joceline Guzman LE Dressing Where Assessed Edge of bed 05/17 11:58 AM Joceline Guzman Sock Level of Assistance Dependent 025 11:58 AM Joceline Guzman Shoe Level of Assistance Dependent 025 10:41 AM Karlie Tijerina * Toileting Question Answer Date of Assessment Author Toileting Interventions Pt with small incontinent BM, required dep A for hygiene to buttocks in stance at isabella RW level with assistance from 2nd person needed for steadying throughout tasks 05/12/2025 12:31 PM Beatriz Starks Where Assessed Other (Comment) 05/12/2025 12:31 PM Beatriz Starks Toileting Level of Assistance Dependent 05/12/2025 12:31 PM Beatriz Starks * Self_Care Question Answer Date of Assessment Author Self_Care Interventions Pt deferred ADLs this date 05/09/2025 11:49 AM EDT Claudio Kim * Cognition Question Answer Date of Assessment Author Deficit Awareness Decreased awareness of deficits 05/17/2025 11:58 AM Joceline Guzman Mood/Behavior Alert 05/17/2025 11:58 AM Joceline Guzman Overall Cognitive Status WFL 11:58 AM Joceline Guzman Arousal/Alertness Appropriate response s to stimuli 05/17/2025 11:58 AM Joceline Guzman Attention Span Attends with cues to redirect 05/17/2025 11:58 AM Joceline Guzman Safety Judgment Decreased awareness of need for assistance 05/17/2025 11:58 AM Joceline Guzman Awareness of Errors Assistance required to identify errors made;Assistance required to correct errors made 05/17/2025 11:58 AM Joceline Guzman Method of Communication Verbal 05/17/20 11:58 AM Joceline Guzman Single Step Commands Consistently;100% o f the time 05/17/2025 11:58 AM Joceline Guzman Multi-Step Commands Consistently;100% of the time 05/17/2025 11:58 AM Joceline Guzman * General Question Answer Date of Assessment Author Next PT Re-Assessment Date [id number] 05/12/2025 12: 32 PM Isiah Lee Patient/Family Goals Statement Return home at [facility] 05/12/2025 12:32 PM Isiah Lee * Plan Question Answer Date of Assessment Author Predicted Duration of Therapy 2 weeks 05/12/2025 12:32 PM Isiah Lee Discharge Recommendation Acute rehab 12:32 PM Isiah Lee Equipment Recommended Defer to facility 05/12/20 12:32 PM Isiah Lee Planned PT Interventions Balance trainin g;Bed mobility training;Gait training;Transfer training;ROM;Strength ening;Functional Mobility 05/12/2025 12:32 PM Isiah Lee Therapy Frequency 2 - 5 times per week 12:32 PM Isiah Lee * PT Assessment Question Answer Date of Assessment Author Activity Limitations Inability to ambula te community distances;Inability to complete ADLs independently;Inability to ambulate independently;Inability to transfer independently;Inability to ambulate household distances 05/12/2025 12:32 PM EDT Isiah Mckeon Participation Restrictions Self-care;Home management;Community leisure 05/12/2025 12:32 PM EDT Isiah Mckeon History Profile 1 - 2 personal facto rs and/or comorbidities 04/28/2025 8:38 AM EDT Maribel Perea Impairments Decreased endurance, ventilation, and/or gas exchange;Impaired gait dynamics/performance;Decr eased strength;Impaired locomotion;Pain;Impaired functional mobility/transfers;Impair ed balance 05/12/2025 12:32 PM EDT Isiah Mckeon Evaluation/Treatment Tolerance Patient limited by pain;Patient limited by fatigue 05/12/2025 12:32 PM EDT Isiah Mckeon Diagnosis Impaired functional mobility and decreased activity tolerance 05/12/2025 12:32 PM EDT Isiah Mckeon Clinical Presentation Evolving clinical presentation with changing characteristics 04/28/2025 8:38 AM EDT Maribel Perea Clinical Decision Making Moderate complexity 04/28/2025 8:38 AM EDT Maribel Perea Rehab Potential Good, to achieve sta nasra therapy goals 05/12/2025 12:32 PM Isiah Lee Activity Tolerance Tolerates 30 min act ivity with multiple rests 05/12/2025 12:32 PM EDT Isiah Mckeon * Ambulation Question Answer Date of Assessment Author Ambulation Comments Unable to side step or progress to forward hop step at bariatric RW level due to inability to maintain prolonged standing position while maintaining NWB in RLE. 05/17/2025 11:56 AM EST Corey Lizarraga IV * HLM Score Question Answer Date of Assessment Author HLM Daily Mobility Goal 2 04/30/2025 10: 00 PM EDT Rodrick Oconnell, RN * Plan of Care Reviewed With Answer Date of Assessment Author patient 05/17/2025 9:53 PM Gualberto Atwood RN * Behavior Risk Screen Tool Question Answer Date of Assessment Author Is there concern that the pa tient will try to elope? No 05/04/2025 8:00 AM EDT Petros Smith, RN * Pressure Injury Prevention (PIP) Interventions Question Answer Date of Assessment Author Pressure Reducing Devices Pillow 05/18/2025 8:00 AM Kylee Ravi RN Preventative Foam Dressing Location Sacrum 05/14/2025 8:45 PM Florina Real RN Bed Type Bariatric Dolphin 05/18/2025 8:00 AM Kylee Ravi RN * Behavioral Expectations Question Answer Date of Assessment Author Behavioral Expectations revi ewed with patient/guardian and family/partner in care? Yes 04/29/2025 7:59 PM EDT Denny Fung i, RN * Vital Signs Question Answer Date of Assessment Author BP 150/94 05/18/2025 7:34 AM EST Inter face, Doc Flowsheet In Temp 97.7 05/18/2025 7:34 AM EST Inter face, Doc Flowsheet In Pulse 58 05/18/2025 7:34 AM EST Inter face, Doc Flowsheet In Resp 15 05/18/2025 7:34 AM EST Inter face, Doc Flowsheet In Heart Rate Source Monitor 05/18/2025 7:34 AM Kylee Ravi RN MAP (mmHg) 113 05/18/2025 7:34 AM EST Inter face, Doc Flowsheet In * Oxygen Therapy Question Answer Date of Assessment Author SpO2 97 05/18/2025 7:34 AM EST Inter face, Doc Flowsheet In O2 Flow Rate (L/min) 2 05/18/2025 3:53 AM Ivan Girard RN Oximetry Probe Site Changed No 05/01/2025 9: 40 AM EDT Jada Ring RN Patient Activity During SpO2 Measurement At rest 05/16/2025 7:48 PM Ivan Atwood RN Oximetry Probe Site Location Left Digit 04/28/2025 2:52 PM EDT Ailyn Finch CNA * Height and Weight Question Answer Date of Assessment Author Weight 8800.76 05/18/2025 5:06 AM Ivan Atwood RN Weight Method Bed scale 05/18/2025 5:06 AM Ivan Atwood RN * Attendant Honor Bar Question Answer Date of Assessment Author Telemetry Box Number PACU BAY #[id number] 05/01/2025 9:10 AM E Jada Jo RN * Gastrointestinal Question Answer Date of Assessment Author Passing Flatus Yes 05/15/2025 4:20 AM EST Florina Metcalf RN Abdominal Tenderness Soft;Nontender 05/15/2025 4:20 AM EST Florina Hinojosa RN Bowel Sounds (All Quadrants) Active 05/18/2025 4 :00 AM EST Ivan Slaughter RN Gastrointestinal (WDL) WDL 05/18/2025 8:00 AM EST Kylee Gonzalez RN Abdomen Inspection Rounded;Soft 05/18/2025 8:00 AM EST Kylee Gonzalez RN GI Symptoms Constipation 05/11/2025 4:30 PM EDT Tamar Leary RN * Peripheral Vascular Question Answer Date of Assessment Author Peripheral Vascular (WDL) X 05/18/2025 8:00 AM EST Kylee Gonzalez RN Generalized Edema Non-pitting 05/18/2025 8:00 AM Kylee Ravi RN Perineal Edema Non-pitting 05/18/2025 8:00 AM EST Kylee Perry RN RLE Edema Non-pitting 05/18/2025 8:00 AM EST Kylee Miranda RN LLE Edema Non-pitting 05/18/2025 8:00 AM Kylee Kendrick RN Capillary Refill Less than/equal to 2 seconds (All extremities) 05/18/2025 8:00 AM Kylee Ravi RN Pulses L pedal;R pedal;R posterior tibial;L posterior tibial;R radial;L radial 05/18/2025 8:00 AM Kylee Ravi RN Cyanosis None 05/12/2025 8:00 AM EDT Kaylin Keita RN Edema Generalized;Right lower extremity;Left lower extremity 05/18/2025 8:00 AM EST Kylee Gonzalez RN PVS Additional Assessments RLE 05/15/2025 4:00 PM EST Nelia Garcia RN * RUE Neurovascular Assessment Question Answer Date of Assessment Author RULouise Sensation Full sensation 05/11/2025 4:30 PM EDT Tamar Ceja RN RUE Capillary Refill Less than/equal to 2 seconds 05/18/2025 8:00 AM Kylee Ravi RN R Radial Pulse +2 05/18/2025 8:00 AM Kylee Leach RN * LUE Neurovascular Assessment Question Answer Date of Assessment Author LULouise Sensation Full sensation 05/11/2025 4:30 PM EDT Fa Tamar umanzor RN LULouise Capillary Refill Less than/equal to 2 seconds 05/18/2025 8:00 AM Kylee Ravi RN L Radial Pulse +2 05/18/2025 8:00 AM Kylee Leach RN * RLE Neurovascular Assessment Question Answer Date of Assessment Author RLLouise Sensation Numbness 05/11/2025 4:30 PM EDT Tamar Haji RN RLLouise Capillary Refill Less than/equal to 2 seconds 05/18/2025 8:00 AM Kylee Ravi RN RLE Color Other (Comment) 05/18/2025 8:00 AM EST Kylee Holm RN RLE Temperature/Moisture Warm;Dry 05/18/2025 8:00 AM Kylee Ravi RN R Posterior Tibial Pulse +1 05/18/2025 8:00 AM Kylee Ravi RN R Pedal Pulse +1 05/18/2025 8:00 AM Kylee Wade RN RLLouise Movement Present 05/18/2025 8:00 AM Kylee Kendrick RN * LLLouise Neurovascular Assessment Question Answer Date of Assessment Author LLLouise Sensation Numbness 05/11/2025 4:30 PM EDT Tamar Haji RN LLLouise Capillary Refill Less than/equal to 2 seconds 05/18/2025 8:00 AM Kylee Ravi RN L Posterior Tibial Pulse +1 05/18/2025 8:00 AM Kylee Ravi RN L Pedal Pulse +1 05/18/2025 8:00 AM Kylee Wade RN * Musculoskeletal Question Answer Date of Assessment Author RUE Full movement 05/18/2025 8:00 AM Kylee Wade RN RLE Swelling;Weakness;Singletary r yasemin;Limited movement 05/18/2025 8:00 AM Kylee Ravi RN LUE Full movement 05/18/2025 8:00 AM Kylee Wade RN LLE Swelling;Weakness;Fu l l movement 05/18/2025 8:00 AM Kylee Ravi RN Musculoskeletal (WDL) X 05/18/2025 8:00 AM Kylee Ravi RN * Urine Assessment Question Answer Date of Assessment Author Urine Color Yellow/straw 05/18/2025 8:00 AM Kylee Kendrick RN Urine Appearance Clear 05/18/2025 8:00 AM Kylee Amador RN Urine Odor No odor 05/18/2025 8:00 AM Kylee Kendrick RN Urinary Incontinence No 05/18/2025 8:00 AM Kylee Rg RN * Genitalia Question Answer Date of Assessment Author Male Genitalia Swelling 05/18/2025 8:00 AM Kylee Leach RN * Psychosocial Question Answer Date of Assessment Author Psychological state Calm;Compliant;Coope ra tive;Brightens with approach 05/18/2025 8:00 AM Kylee Ravi RN Needs Expressed Physical 05/18/2025 8:00 AM Kylee Ravi RN Psychosocial (WDL) WDL 05/18/2025 8: 00 AM Kylee Ravi RN Psychosocial Additional Assessments No 05/18/2025 8:00 AM Kylee Ravi RN Ability to Express Feelings Able to express 05/18/2025 8:00 AM Kylee Ravi RN Ability to Express Needs Able to express 025 8:00 AM Kylee Ravi RN Ability to Express Thoughts Able to express 05/18/2025 8:00 AM Kylee Ravi RN Length of Time/Family Visitation Rooming in 05/04/2025 4:04 PM Rocío Hoyt RN Ability to Understand Others Understands 05/18/2025 8:00 AM Kylee Ravi RN * Unmeasured Output Question Answer Date of Assessment Author Unmeasured Stool Occurrence (hourly total) 1 05/16/2025 11:00 AM Char Real CNA * Intake Question Answer Date of Assessment Author P.O. [address] 05/18/2025 9:00 AM Kylee Kendrick RN I.V. 20 04/29/2025 11:26 PM EDT Brittny Garner RN Percent Meals Eaten (%) 75 05/18/2025 9:00 A M Kylee Ravi RN * Output (mL) Question Answer Date of Assessment Author Stool Color Brown 05/16/2025 11:00 AM EST Char May, VONDA Stool Amount Large 05/16/2025 11:00 AM EST Char May, VONDA Stool Appearance Formed 05/16/2025 11:00 AM Char Real, VONDA Bowel Incontinence No 05/16/2025 11:00 AM Char Abdalla, VONDA Desha Stool Assessment Sausage 05/16/2025 11:00 AM Char Real, VONDA * Craven Fall Risk Question Answer Date of Assessment Author History of Falling, Immediat e or Within 3 Months 0 05/18/2025 8:00 AM Kylee Ravi RN Secondary Diagnosis 15 05/18/2025 8:00 AM Kylee Reynaga RN Ambulatory Aid 15 05/18/2025 8:00 AM Kylee Leach RN Intravenous Therapy/Heparin Lock 0 05/18/20 25 8:00 AM Kylee Ravi RN Gait/Transferring 10 05/18/2025 8:00 AM Kylee Ravi RN Mental Status 0 05/18/2025 8:00 AM Kylee Wade RN Craven Fall Risk Score 40 05/18/2025 8:00 AM Kylee Ravi RN * Miguel Ángel Scale Question Answer Date of Assessment Author Sensory Perceptions 3 05/18/2025 8:00 AM Kylee Reynaga RN Moisture 3 05/18/2025 8:00 AM Kylee Kendrick RN Activity 3 05/18/2025 8:00 AM Kylee Kendrick RN Mobility 3 05/18/2025 8:00 AM Kylee Kendrick RN Nutrition 3 05/18/2025 8:00 AM Kylee Kendrick RN Friction and Shear 2 05/18/2025 8:00 AM Kylee Ravi RN Miguel Ángel Scale Score 17 05/18/2025 8:00 AM Kylee Ravi RN * BSA (Calculated - sq m) Answer Date of Assessment Author 3.56 05/18/2025 5:06 AM Gualberto Atwood RN * BMI (Calculated) Answer Date of Assessment Author 74.58 05/18/2025 5:06 AM Gualberto Atwood RN * Wound Follow-Up Question Answer Date of Assessment Author Last Date of Wound Treatment 91004 05/08/2025 12:42 PM Jeevan Spence RN Wound Follow-Up Needed? 1 Week 05/08/2025 12:42 PM Jeevan Spence RN Wound Comment wound vac right foot. MWF 05/08/2025 12:42 PM Jeevan Spence RN Wound Previous Provider AB 05/08/2025 12:42 PM Jeevan Spence RN Next Date For Wound Care Follow-up 74182 05/08/2025 12:42 PM Jeevan Spence RN * Cardiac Question Answer Date of Assessment Author Telemetry Strip Reviewed Yes, I have reviewed and acknowledged the strip measurements as interpreted by the CPT's 05/12/2025 4:00 PM EDT Kaylin Robb RN Cardiac Rhythm NSR 05/13/2025 3:58 AM EDT Haritha Vasquez RN Heart Block Type Bundle branch block 05/13/2025 3:58 A M EDT Haritha Lam test and turn up technicianElectric Car Operator On No 05/18/2025 8:00 AM Kylee Rg RN Cardiac (WDL) WDL 05/18/2025 8:00 AM Kylee Wade RN Pacemaker No 05/18/2025 8:00 AM Kylee Kendrick RN Cardiac Regularity Regular 05/18/2025 4:00 AM Ivan Atwood RN Heart Sounds S1, S2 05/18/2025 8:00 AM Kylee Kendrick RN Telemetry/Attendant Honor Bar No 05/18/2025 8:00 AM Kylee Ravi RN Jugular Venous Distention (JVD) No 05/15/2025 4:20 AM EST Florina Hinojosa RN Cardiac Symptoms None 05/18/2025 8:00 AM EST Kylee Navarrete RN * Respiratory Question Answer Date of Assessment Author Bilateral Breath Sounds Clear;Diminished 05/18/2025 8:00 AM Kylee Ravi RN R Breath Sounds Diminished 05/11/2025 4:30 PM EDT Tamar Lynn RN L Breath Sounds Diminished 05/11/2025 4:30 PM EDT Tamar Lynn RN Respiratory Pattern Regular 05/18/2025 4 :00 AM Ivan Atwood RN Chest Assessment Chest expansion symmetrical 05/18/2025 4:00 AM Ivan Atwood RN Cough Non-productive 05/11/2025 4:30 PM EDT Tamar Lynn RN Sputum Amount Moderate 05/07/2025 4:00 PM EDT Iveth Boss RN Sputum Color Unable to assess 05/11/2025 4:30 PM EDT Tamar Lynn RN Sputum Consistency Thin 05/07/2025 4: 00 PM EDT Iveth Boss RN Respiratory (WDL) X 05/18/2025 8:0 0 AM EST Kylee Gonzalez RN Respiratory Additional Assessments Yes 05/04/2025 4:04 PM EDT Rocío Crandall RN Respiratory Effort Unlabored 05/17/2025 8: 00 PM Ivan Atwood RN Respiratory Depth/Rhythm Regular 05/18/2025 4:00 AM Ivan Atwood RN Dyspnea Occurrence With exertion 05/14/2025 8: 45 PM EST Florina Hinojosa RN * RLE ROM Assessment Question Answer Date of Assessment Author RLE Assessment WFL 05/12/2025 12:32 PM EDT Isiah Michel * LLE ROM Assessment Question Answer Date of Assessment Author LLE Assessment WFL 05/12/2025 12:32 PM EDT Isiah Michel * Vitals Question Answer Date of Assessment Author Prisca knox Oral 05/18/2025 7:34 AM EST Char Garcia R, SMOKE AND FLAME SPECIALIST BP Location Right arm 05/18/2025 7:34 AM Char Tyler R, SMOKE AND FLAME SPECIALIST BP Method Automatic 05/18/2025 7:34 AM Char Tyler R, SMOKE AND FLAME SPECIALIST Pulse Oximetry Type Intermittent 05/10/2025 3:59 AM ED T Maribell Saeed Oxygen Therapy Supplemental oxygen 05/18/2025 7:34 AM Char Real, SMOKE AND FLAME SPECIALIST O2 Delivery Method Nasal cannula 05/18/2025 7:34 AM Char Abdalla, SMOKE AND FLAME SPECIALIST Patient Position Lying 05/18/2025 7:34 AM Char Johnson, SMOKE AND FLAME SPECIALIST * Point of Care Tests Question Answer Date of Assessment Author Provider Role Attending physician 05/13/2025 4:57 AM Haritha Dozier, RN Blood Glucose Meter 124 05/18/2025 8:09 AM Char Abdalla, SMOKE AND FLAME SPECIALIST Provider Name Magali Escalante DO 05/13/2025 4:57 AM ED Haritha Napoles, LOLA Method of Communication Secure message 05/13/2025 4:57 AM EDT Haritha Lam RN Reason for Communication Evaluate 05/13/2025 4:57 AM EDT Haritha Lam RN Response No new orders 05/13/2025 4:57 AM EDT Haritha Card, RN Name of Nurse Notified of Blood Glucose Results (First and Last) Ivan Slaughter RN 05/16/2025 8:28 PM EST Jamal Soriano CNA Glucose Sample Retrieved From Finger stick 05/18/2025 8:09 AM Char Real, SMOKE AND FLAME SPECIALIST * Vision - Basic Assessment Question Answer Date of Assessment Author Baseline Vision Glasses reading 05/12/2025 12:32 PM ED T Isiah Mckeon Current Vision Intact 05/12/2025 12:32 PM EDT Isiah Michel Tracking Intact 05/12/2025 12:14 PM EDT Beatriz Carroll Vision Comments Pt denies any new ch dolly in vision 05/12/2025 12:32 PM EDT Isiah Mckeon * Patient Information Question Answer Date of Assessment Author Primary Caregiver Self 04/28/2025 1:00 PM LOGANT Mayra Apodaca RN Support System Immediate family 04/28/2025 1:00 PM EDT Mayra Apodaca RN * Activities of Daily Living Question Answer Date of Assessment Author Functional Status Minimum assistance 04/28/2025 1:00 P M Mayra Hall RN Living Arrangements Spouse/Significant other;Children 04/28/2025 1:00 PM LOGANT Mayra Apodaca RN Type of Residence Private residence;Single Level 04/28/2025 1:00 PM Mayra Hall RN Smoker in the Home? No 04/28/2025 1:00 PM ED T Mayra Apodaca RN * Income Information Question Answer Date of Assessment Author Income Source Disabled 04/28/2025 1:00 PM LOGANT Mayra Fink RN Income/Expense Information Expenses exceed income 04/28/2025 1:00 PM LOGANT Mayra Apodaca RN Current Resources Utilized None 04/28/2025 1:00 PM EDT Mayra Apodaca R N * Advance Directives (For Healthcare) Question Answer Date of Assessment Author Advance Directive Not applicable 05/04/2025 8:00 AM ED T Petros Smith RN Pre-existing DNR/DNI Order No 05/04/2025 8:0 0 AM Petros Valenzuela RN Information Provided on Healthcare Directives No 05/04/2025 8:00 AM Petros Valenzuela RN Patient Requests Assistance No 05/04/2025 8:00 AM Petros Valenzuela RN Have you reviewed your Advance Directive and is it valid for this stay? No 05/04/2025 8:00 AM LOGANT Domenico Smith RN * Nutrition Screen Question Answer Date of Assessment Author Difficulty Chewing or Swallowing No 05/04/2025 8:00 AM Petros Valenzuela RN Burn, Pressure Injury, or Non-Healing Wound Yes (Comment) 05/04/2025 8:00 AM EDT Petros Smith RN Home Tube Feeding or Total Parenteral Nutrition (TPN) No 05/04/2025 8:00 AM EDT Bon Smith RN Food allergy, Pentecostalism, or Cultural nutrition needs No 05/04/2025 8:00 AM EDT Dre Smith rd, RN * Trauma/Abuse Assessment Question Answer Date of Assessment Author Physical Abuse Denies 05/04/2025 8:00 AM EDT Petros Tristan RN Verbal Abuse Denies 05/04/2025 8:00 AM EDT Petros Campa, LOLA * Values/Beliefs Question Answer Date of Assessment Author Cultural Requests During Hospitalization na 05/04/2025 8:00 AM EDT Petros Smith RN Spiritual Requests During Hospitalization na 05/04/2025 8:00 AM EDT Petros Smith RN Unable to assess No 05/04/2025 8:00 AM EDT Petros Kerr RN * Genitourinary Question Answer Date of Assessment Author Genitourinary (WDL) X 05/18/2025 8:00 AM Kylee Reynaga RN Genitourinary Symptoms Rios catheter 05/18/2025 8:00 AM Kylee Ravi RN * Neurological Question Answer Date of Assessment Author Level of Consciousness Alert 8:00 AM Kylee Ravi RN Orientation Level Oriented X4 05/18/2025 8:0 0 AM Kylee Ravi RN Cognition Follows commands 05/14/2025 4:00 PM Kaylin Espinosa RN Speech Clear 05/14/2025 4:00 PM Kaylin Espinosa RN L Pupil Reaction Brisk 05/11/2025 4:30 PM EDT Tamar Lynn RN L Pupil Size (mm) 3 05/11/2025 4:3 0 PM EDT Tamar Lynn RN R Pupil Reaction Brisk 05/11/2025 4:30 PM EDTamar Hunter RN R Pupil Size (mm) 3 05/11/2025 4:3 0 PM EDT Farnum, Tamar R, RN LUE Motor Response Responds to commands 05/11/20 4:30 PM EDT Tamar Lynn R, RN LLE Motor Response Responds to commands 05/11/20 4:30 PM EDT Tamar Lynn, RN RUE Motor Response Responds to commands 05/11/20 4:30 PM EDT Tamar Lynn, RN RLE Motor Response Responds to commands 05/11/20 4:30 PM EDT Tamar Lynn RN Neuro (WDL) WDL 05/18/2025 8:00 AM EST Lisa Kylee Claire, RN Swallow Able to swallow solids and liquids without difficulty 05/18/2025 4:00 AM EST Ivan Slaughter RN R Hand Grasp Strong 05/11/2025 4:30 PM EDT Tamar Lynn, RN L Hand Grasp Strong 05/11/2025 4:30 PM EDT Tamar Lynn R, RN R Foot Dorsiflexion Strong 05/11/2025 4 :30 PM EDT Tamar Lynn R, RN L Foot Dorsiflexion Strong 05/11/2025 4 :30 PM EDT Tamar Lynn R, RN R Foot Plantar Flexion Strong 4:30 PM EDT Tamar Lynn R, RN L Foot Plantar Flexion Strong 4:30 PM EDT Tamar Lynn, RN R Pupil Shape Round 05/11/2025 4:30 PM EDT Tamar Lynn, RN L Pupil Shape Round 05/11/2025 4:30 PM EDT Tamar Lynn, RN Neuro Symptoms None 05/11/2025 4:30 PM EDT Tamar Lynn, RN RUE Motor Strength Normal power 05/11/2025 4: 30 PM EDT Tamar Lynn, RN LUE Motor Strength Normal power 05/11/2025 4: 30 PM EDT Tamar Lynn, RN RLE Motor Strength Can overcome resistance 05/11/2025 4:30 PM EDT Tamar Lynn, RN LLE Motor Strength Can overcome resistance 05/11/2025 4:30 PM EDT Tamar Lynn RN Pupil Assessment Yes 05/11/2025 4:30 PM EDT Tamar Lynn RN Hand Grasp/Motor Function/Sensation Assessment Grasp;Motor response;Sensation;Mo tor strength;Dorsiflexion ;Plantar flexion 05/11/2025 4:30 PM EDT Tamar Lynn RN * Height and Weight Question Answer Date of Assessment Author Height 72 04/27/2025 10:46 PM EDT Stella Mauro RN Height Method Stated 04/27/2025 10:46 PM EDT Stella Foss RN * Prior Function Question Answer Date of Assessment Author Mobility Greenlee Independent gait w ith device 05/12/2025 12:32 PM EDT Isiah Mckeon ADL Performance Needs assistance 05/12/2025 12:32 PM E Isiah Ruelas Receives Help From Spouse 05/12/2025 12:32 PM ED T Isiah Mckeon Bathing Needs assist 05/12/2025 12:32 PM EDT Isiah Dubois Upper Body Dressing Needs assist 05/12/2025 12:32 PM E Isiah Ruelas Lower Body Dressing Needs assist 05/12/2025 12:32 PM E Isiah Ruelas Grooming Needs assist 05/12/2025 12:32 PM EDT Isiah Dubois Toileting Independent 05/12/2025 12:32 PM EDT Isiah Dubois Eating Independent 05/12/2025 12:32 PM EDT Isiah Dubois Home Management Skills Needs assist 05/12/2025 12:32 P M EDIsiah Zavlaa * RUE ROM Assessment Question Answer Date of Assessment Author RUE Assessment [facility] 05/12/2025 12:32 PM EDT Isiah Michel * LUE ROM Assessment Question Answer Date of Assessment Author LUE Assessment [facility] 05/12/2025 12:32 PM EDT Isiah Michel * Safe Environment Question Answer Date of Assessment Author 37-Pin Connection [Bed and Wall] Yes 05/18/2025 8:00 AM Kylee Ravi RN Arm Bands On ID 05/18/2025 8:00 AM Kylee Kendrick RN Side Rails/Bed Safety 2/4 05/18/2025 8:00 AM Kylee Ravi RN NonSkid Footwear On;Patient in bed 05/18/2025 8:00 AM Kylee Ravi RN The Patient's Environment is Safe Yes 05/18/2025 8:00 AM Kylee Ravi RN Head of Bed Angle 45 05/18/2025 8:00 AM Kylee Ravi RN Bed Foot Left Rail Up State No 05/18/2025 8:00 AM Kylee Ravi RN Bed Head Right Rail Up State Yes 05/18/2025 8:00 AM Kylee Ravi RN Bed Head Left Rail Up State Yes 05/18/2025 8:00 AM Kylee Ravi RN Bed Foot Right Rail Up State No 05/18/2025 8:00 AM Kylee Ravi RN Bed Exit System Activate Status No 05/18/2025 8:00 AM Kylee Ravi RN Bed Brake State Yes 05/18/2025 8:00 AM Kylee Hunter RN Bed Low Height State Yes 05/18/2025 8:00 AM Kylee Rg RN Chair Exit System Activate Status No 05/18/2025 8:00 AM Kylee Ravi RN * Fall Risk Interventions Question Answer Date of Assessment Author Safety Promotion/Fall Prevention safety round/check completed;room organization consistent;activity supervised 05/18/2025 8:00 AM Kylee Ravi RN Enhanced Safety Measures monitored by video;room near unit station 05/18/2025 4:00 AM Ivan Atwood RN Toilet Every 2 Hours-In Advance of Need Yes 05/17/2025 8:00 PM Ivan Atwood RN Hourly Visual Checks Awake;Quiet 05/18/2025 8:00 AM Kylee Rg RN Room Door Open Deferred to promote rest 05/17/2025 8:0 0 PM Ivan Atwood RN Gait Belt Used For Transfers Not applicable 05/17/2025 8:00 PM Ivan Atwood RN Fall Bundle Components Call light within reach;Personal belongings within reach;Overbed table within reach;Bed in lowest position;Bed wheels locked;Non-skid footwear on if up in chair or ambulating;Staff to remain with patient during toileting 05/18/2025 8:00 AM Kylee Ravi RN * Mobility Question Answer Date of Assessment Author Range of Motion active ROM (range of motion) encouraged 05/17/2025 8:00 PM Ivan Atwood RN Activity Management activity encouraged;activity adjusted per tolerance;previous patient education reinforced 05/18/2025 8:00 AM Kylee Ravi RN Assistive Device Utilized lift device 05/17/2025 8:00 PM Ivan Atwood RN Body Position turned;right;left;we igh t shifting;education provided 05/18/2025 9:00 AM Kylee Ravi RN VTE Prevention/Management medication;SCDs (sequential compression devices) off 05/18/2025 8:00 AM Kylee Ravi RN Head of Bed (HOB) Positioning HOB elevated 05/18/2025 9:00 AM Kylee Ravi RN Repositioned Prompted independent patient to reposition 05/18/2025 4:00 AM Ivan Atwood RN Head of Bed Elevated Self regulated 05/18/2025 9:00 AM Kylee Ravi RN Heels/Feet Heels elevated off bed 8:00 PM Ivan Atwood RN Positioning Frequency Able to turn self 05/18/20 25 9:00 AM Kylee Ravi RN * Hygiene Question Answer Date of Assessment Author Perineal Care perineum cleansed 05/16/2025 11:00 AM Char Abdalla CNA Bathing/Skin Care bath, complete 05/16/2025 11:00 AM Char Dumas CNA Oral Care mouth wash rinse 05/18/2025 8:00 AM Kylee Amador RN Oral Care (Yes/No) Yes 05/18/2025 8:00 AM EST Kylee Gonzalez RN Rios Care Castile Wipes Used Yes 05/18/2025 5:00 AM EST Ron Lal CHG (Chlorhexidine Gluconate) Hygiene Wipes 05/18/2025 12:00 AM EST Ivan Slaughter RN CHClaire Treatment Refused-Action Taken Education provided 04/29/2025 6:00 AM EDT Marian Salmon RN * Precautions Question Answer Date of Assessment Author Isolation Precautions precautions maintained 12/2024 8:00 AM Kylee Ravi RN Precautions Environmental surveillance 05/18/2025 8:00 AM Kylee Ravi RN * Family/Significant Other Communication Question Answer Date of Assessment Author Family/Significant Other Update Visiting 8:00 AM Kaylin Espinosa RN * Telemetry Details Question Answer Date of Assessment Author Telemetry Audible Yes 05/18/2025 8:00 AM Kylee Ravi RN Telemetry Alarms Set Yes 05/18/2025 8:00 AM Kylee Rg RN * Comfort and Environment Interventions Question Answer Date of Assessment Author Heat Therapy Applied (Comment) 05/01/2025 9:10 AM EDT Jada Ring RN Comfort Full linen change 05/16/2025 11: 00 AM EST Char Hinojosa CNA Additional Comfort/Environmental Interventions Heat therapy 05/01/2025 9:10 AM EDT Jada Ring RN * Miscellaneous Devices Question Answer Date of Assessment Author Equipment trapeze/overhead bed frame 05/14/2025 8:0 0 AM Kaylin Espinosa RN * Safety Equipment at Bedside Question Answer Date of Assessment Author Standard Bedside Safety Ambu bag/mask at bedside;Oxygen available and working;Suction available, setup and working 05/18/2025 8:00 AM Kylee Ravi RN Additional Bedside Safety Bed in locked and low position;Clutter free environment 05/18/2025 8:00 AM Kylee Ravi RN * Saline Flush (mL) Answer Date of Assessment Author 10 05/13/2025 6:10 PM EDT Kaylin Robb RN * IBW/kg (Calculated) Male Answer Date of Assessment Author 77.6 04/27/2025 10:46 PM EDT Stella Daniels RN * IBW/kg (Calculated) Female Answer Date of Assessment Author 73.1 04/27/2025 10:46 PM EDT Stella Daniels RN * ADL Screening Question Answer Date of Assessment Author Patient's Vision Adequate to Safely Complete Daily Activities Yes 05/04/2025 8:00 AM EDT Petros Smith RN Patient's Judgment Adequate to Safely Complete Daily Activities Yes 05/04/2025 8:00 AM EDT Biju Smith RN Patient's Memory Adequate to Safely Complete Daily Activities Yes 05/04/2025 8:00 AM EDT Petros Smith RN Patient Able to Express Needs/Desires Yes 05/04/2025 8:00 AM EDT Petros Smith RN Dressing Independent 05/04/2025 8:00 AM EDT Petros Campa RN Grooming Independent 05/04/2025 8:00 AM EDPetros Luevano RN Feeding Independent 05/04/2025 8:00 AM Petros Gordillo RN Bathing Needs assistance 05/04/2025 8:00 AM LOGANT Petros Kerr RN Toileting Needs assistance 05/04/2025 8:00 AM Petros Bee RN In/Out Bed Dependent 05/04/2025 8:00 AM Petros Gordillo RN Walks in Home Dependent 05/04/2025 8:00 AM LOGANT Petros Estrada RN Weakness of Legs None 05/04/2025 8:00 AM LOGANT Petros Kerr RN Weakness of Arms/Hands None 05/04/2025 8:00 AM EDPetors Pillai RN Hearing - Right Ear Functional 05/04/2025 8:00 AM ED T Petros Smith RN Hearing - Left Ear Functional 05/04/2025 8:00 AM EDT Petros Smith RN * Consults Question Answer Date of Assessment Author Integrative Medicine Consult Needed No 05/04/2025 8:00 AM EDT Petros Smith RN Pastoral Care Consult Needed No 05/04/2025 8 :00 AM EDT Petros Smith, farm boss Consult Needed No 05/04/2025 8:00 AM EDT Petros Smith, LOLA * Therapy Consults Question Answer Date of Assessment Author PT Evaluation Needed 2 05/04/2025 8:00 AM E Petros Souza, RN OT Evaluation Needed 2 05/04/2025 8:00 AM E Petros Souza, LOLA PROGRAM MANAGEMENT MANAGER Evaluation Needed 2 05/04/2025 8:00 AM EDT Petros Smith, RN * Assistive Devices Question Answer Date of Assessment Author Assistive Devices Eyeglasses;Cane 04/29/2025 6:48 PM E Chuyita Johnson RN * PAINAD (Pain Assessment in Advanced Dementia) Question Answer Date of Assessment Author Pain Management Interventions medication (see MAR);rest;relaxation techniques promoted;quiet environment facilitated 05/18/2025 9:06 AM EST Kylee Gonzalez RN * Provider Notification Question Answer Date of Assessment Author Shift Event Other (Comment) 05/13/2025 4:57 AM EDT To Haritha thacker RN Notification Time [id number] 05/13/2025 4:57 AM EDT Haritha Lam RN * Alarm Limits Question Answer Date of Assessment Author HR Alarm Limit Low 50 05/03/2025 8:00 AM EDKylee Fang RN HR Alarm Limit High 120 05/03/2025 8:00 AM ED Kylee Fang RN RR Alarm Limit Low 8 05/01/2025 9:10 AM EDT Jada Ring RN RR Alarm Limit High 20 05/01/2025 9:10 AM ED Jada Contreras RN SpO2 Alarm Limit Low 92 05/03/2025 8:00 AM E Kylee Rodríguez RN SpO2 Alarm Limit High 100 05/03/2025 8:00 AM EDT yKlee Gonzalez RN BP Mean Alarm Limit Low 60 05/01/2025 9:10 A M EDT Jada Ring RN * End of Shift Review Question Answer Date of Assessment Author Shift Review Complete Yes 05/17/2025 8:00 AM Deepthi Galeano RN Shift Report Received From Reno Slaughter RN 05/17/2025 8:0 0 AM Deepthi Galeano RN Shift Report Given To Monae Herman RN 05/17/2025 8:00 AM Deepthi Galeano RN * Intraop Skin Assessment Question Answer Date of Assessment Author Wound Description open ulcerated wound R foot 05/01/2025 8:02 AM EDT Kelli Nicole RN Presence of skin impairment on admission to OR? Yes 05/01/2025 8:02 AM EDT David Nicole RN Area of skin breakdown Other (see comment) 05/01/2025 8:02 AM Kelli Castro RN Admission skin impairment type Other (see comments) 05/01/2025 8:02 AM EDT Jes Nicole RN Pressure relief dressing in place? Yes 05/01/2025 8:02 AM David Castro RN Underlying skin checked? No 05/01/2025 8:02 AM EDT David Nicole RN * Hourly Rounding Question Answer Date of Assessment Author Hourly Rounding Complete Per Guideline Yes 05/18/2025 11:00 AM Kylee Ravi RN * Central/PICC Line Removal Question Answer Date of Assessment Author Time-out Dual Sign Off 2nd Waiter/Waitress Buffet Santy Garcia RN 05/18/2025 8:07 AM Santy Antonio RN Central/PICC Line Removal Safety Precautions Patient instructed to hold breath/Valsalva;Patient in Trendelenburg position 05/18/2025 8:07 AM Santy Antonio, LOLA * Patient Violence Risk Assessment Question Answer Date of Assessment Author History of Violence: In the past 12 hours has the PATIENT exhibited any of the following? None 05/18/2025 8:00 AM Kylee Ravi RN Potential for Violence: In the past 12 hours has the PATIENT exhibited any of the following? None 05/18/2025 8:00 AM Kylee Ravi RN Risk No identified risk 05/18/2025 8:00 AM Kylee Ravi RN History of Violence: In the past 12 hours has a PARTNER IN CARE of the patient exhibited any of the following? None 05/18/2025 8:00 AM Kylee Ravi RN * Malnutrition Identification Question Answer Date of Assessment Author Malnutrition Identified No 05/02/2025 12:[address] * Physical Exam Performed On Question Answer Date of Assessment Author Temples (muscles) None 05/02/2025 12:00 PM EDT Kylee Ann, HARISH Clavicle (muscle) None 05/02/2025 12:00 PM EDT Kylee Ann, HARISH Shoulder (muscle) None 05/02/2025 12:[address] Interosseous (muscle) None 05/02/2025 12:[address] Calf (muscle) None 05/02/2025 12:[address] Orbital (fat) None 05/02/2025 12:00 PM EDT Kylee Chiang, HARISH Triceps (fat) None 05/02/2025 12:00 PM EDT Kylee Chiang, RD * Mobility Question Answer Date of Assessment Author Ambulation Not performed;Unable to assess 05/14/2025 8:45 PM Florina Real RN * Airway Question Answer Date of Assessment Author Airway Patency Patent 04/29/2025 4:37 AM EDT Britt Benson RN Airway (WDL) WDL 04/29/2025 4:37 AM EDT Britt Helms RN * Breathing Question Answer Date of Assessment Author Breathing (WDL) X 04/29/2025 4:37 AM EDT Britt Cavazos RN * Circulation Question Answer Date of Assessment Author Circulation (WDL) X 04/29/2025 4:37 AM EDT Britt Helms RN * Disability Question Answer Date of Assessment Author Disability (WDL) WDL 04/29/2025 4:37 AM EDT Britt Moralez, LOLA * Restart Vitals Timer Answer Date of Assessment Author Yes 05/18/2025 7:34 AM EST Milton Bajwa Flowsheet In * Neurological Question Answer Date of Assessment Author Neuro ([facility]) [facility] 05/01/2025 9:40 AM EDT Jada Cummins RN * HEENT Question Answer Date of Assessment Author HEENT ([facility]) X 05/01/2025 9:10 AM EDT Jada Cummins RN * Cardiac Question Answer Date of Assessment Author Cardiac ([facility]) [facility] 05/01/2025 9:10 AM EDT Jada Chavez RN * Gastrointestinal Question Answer Date of Assessment Author Gastrointestinal ([facility]) [facility] 05/01/2025 9:10 AM EDT Jada Ring RN * Genitourinary Question Answer Date of Assessment Author Genitourinary ([facility]) X 05/01/2025 9:10 AM ED T Jada Ring RN * Psychosocial Question Answer Date of Assessment Author Psychosocial ([facility]) [facility] 05/01/2025 9:10 AM EDT Jada Ring RN * Pain Assessment Question Answer Date of Assessment Author Pain Assessment 0-10 (Adult DVPRS/Pe ds 0-10) 05/01/2025 9:40 AM EDT Jada Ring RN * IBW/kg (Calculated) Answer Date of Assessment Author 77.6 04/27/2025 10:46 PM EDT Stella Daniels RN * STOP-Bang Questionnaire Question Answer Date of Assessment Author Do you snore loudly? 1 05/04/2025 8:00 AM Petros Abdul RN Do you often feel tired or fatigued after your sleep? 1 05/04/2025 8:00 AM EDT Bon Smith RN Has anyone ever observed you stop breathing in your sleep? 1 05/04/2025 8:[address], RN Do you have or are you being treated for high blood pressure? 1 04/29/2025 6:48 PM EDT Chuyita Abel RN Is BMI greater than 35 kg/m2? 1=Yes 05/04/2025 8:00 AM EDT Petros Smith RN Age older than 50 years old? 0=No 05/04/2025 8 :00 AM EDT Petros Smith RN Is your neck circumference g reater than 17 inches (Male) or 16 inches (Female)? 1 05/04/2025 8:00 AM EDT Petros Smith, LOLA Gender - Male 1=Yes 05/04/2025 8:00 AM EDT Petros Estrada RN STOP-Bang Total Score 7 04/29/2025 6:48 PM EDT Chuyita Kim RN Recent BMI (Calculated) 74.7 05/04/2025 8:00 A M EDT Petros Smith, LOLA * Feeding Question Answer Date of Assessment Author Feeding Interventions To perform self-feeding tasks, pt is on regular, consistent CHO diet 05/12/2025 12:31 PM Beatriz Starks Feeding Level of Assistance Independent 05/12/2025 12:31 PM Beatriz Starks Feeding Where Assessed Bed level 12:31 PM Beatriz Starks * Grooming Question Answer Date of Assessment Author Grooming Interventions To perform seated level grooming tasks at edge of bed 05/12/2025 12:31 PM Beatriz Starks Grooming Where Assessed Edge of bed 05/12/20 12:31 PM Beatriz Starks Grooming Level of Assistance Setup;SBA 05/12/2025 12:31 PM Beatriz Starks * General Question Answer Date of Assessment Author Next OT Reassessment [id number] 05/12/2025 12:14 PM Beatriz Starks Patient/Family Goals Statement Pt desires to improve overall independence and return home when able to. 05/12/2025 12:14 PM Beatriz Starks * Home Living Question Answer Date of Assessment Author Home Type House 05/12/2025 12:32 PM EDT Isiah Dubois Number of Stairs 3 05/12/2025 12:32 PM EDT Isiah Mckeon Bathroom: Tub/Shower Tub/Shower combo;Tu b transfer bench 05/12/2025 12:32 PM Isiah Lee Bathroom: Toilet Standard 05/12/2025 12:32 PM Isiah Lee Bathroom: Accessibility Accessible 05/12/2025 12:32 PM EDT Isiah Mckeon Home Living Comments Pt reports he does not drive at baseline due poor sensation in feet. Pt has access to 24/7 assistance at discharge. 05/12/2025 12:32 PM EDT Isiah Mckeon Home Layout One level;Stairs to enter with rails 05/12/2025 12:32 PM EDT Isiah Mckeon Home Adaptive Equipment Rolling walker;Cane 05/12/2025 12:32 PM EDT Isiah Mckeon Lives With Spouse 05/12/2025 12:32 PM EDT [place] Isiah dickens * Date of PT Session Question Answer Date of Assessment Author PT Initials [facility] 05/17/2025 11:56 AM Corey Garza IV Date of PT Session [id number] 05/17/2025 11:56 AM Corey Durham IV * Pneumococcal Vaccine Screen - Year Round Question Answer Date of Assessment Author Have you ever had a pneumoni a vaccination? Yes 04/30/2025 5:10 AM EDT Brittny Fung R N * Have you had an influenza vaccine this season? Answer Date of Assessment Author Unsure 05/18/2025 11:35 AM Kylee Ravi RN * Eating Question Answer Date of Assessment Author Assistance Needed Independent 05/12/2025 12:14 PM LOGANT Beatriz Gaspar CARE Score - Eating 6 05/12/2025 12:14 PM E Beatriz Lopez * Oral Hygiene Question Answer Date of Assessment Author Assistance Needed Set-up / clean-up;Supervisio n 05/12/2025 12:14 PM Beatriz Starks Score - Oral Hygiene 4 05/12/2025 12:14 PM EDT Faith Gasapr * Toileting Hygiene Question Answer Date of Assessment Author Physical Assistance Level Total assistance 05/12/2025 12:14 PM Beatriz Starks Score - Toileting Hygiene 1 05/12/2025 12:14 PM EDT Faith Gaspar ly * Shower/Bathe Self Question Answer Date of Assessment Author Physical Assistance Level 51%-75% 05/12/2025 12:1 4 PM Beatriz Starks CARE Score - Shower/Bathe Self 2 05/12/2025 12:14 PM EDT Trudy Gasparberly * Upper Body Dressing Question Answer Date of Assessment Author Assistance Needed Set-up / clean-up;Supervisio n 05/12/2025 12:14 PM EDT TrevflornamanTrudyBeatriz CARE Score - Upper Body Dressing 4 05/12/2025 12:14 PM EDT TrevflornamanFaith ly * Lower Body Dressing Question Answer Date of Assessment Author Physical Assistance Level Total assistance 05/12/2025 12:14 PM EDT TrevflornamanTrudyBeatriz CARE Score - Lower Body Dressing 1 05/12/2025 12:14 PM EDT Trevflornaman Faith ly * Putting On/Taking Off Footwear Question Answer Date of Assessment Author Physical Assistance Level Total assistance 05/12/2025 12:14 PM EDT Trevflornaman Beatriz CARE Score - Putting On/Taking Off Footwear 1 05/12/2025 12:14 PM EDT Trudy Gaspar nory * Calculated C-SSRS Risk Score (Lifetime/Recent) Answer Date of Assessment Author No Risk Indicated 05/18/2025 8:00 AM Kylee Ravi RN * Shelley Coma Scale Question Answer Date of Assessment Author Best Eye Response Spontaneous 05/18/2025 8:00 AM Kylee Ravi RN Best Verbal Response Oriented 05/18/2025 8:00 AM Kylee Rg RN Best Motor Response Follows commands 05/18/2025 8:00 A M Kyele Ravi RN [place] Coma Scale Score 15 05/18/2025 8:00 AM Kylee Ravi RN * ADL Question Answer Date of Assessment Author Toileting Modified assist 04/29/2025 6:00 AM EDT Marian Dobbs RN Elimination Management Other (Comment) 04/29/2025 6:00 AM EDT Marian Salmon RN Bed type Acute bed 04/29/2025 6:00 AM EDT Marian Dailey RN * Learning Assessment Question Answer Date of Assessment Author Education Level College 04/27/2025 9:42 PM EDT Stella Brooks RN Factors that Impact Ability to Learn None 04/27/2025 9:42 PM EDT Stella Daniels R N Cultural Considerations None 04/27/2025 9:42 P M EDT Stella Daniels RN Pentecostalism Considerations None 04/27/2025 9:42 PM EDT Stella Daniels RN * Abuse Screen Question Answer Date of Assessment Author Are you or have you been thr eatened or abused physically, emotionally, or sexually by a partner, spouse, or family member? No 04/27/2025 9:42 PM EDT Stella Daniels R N * LISA 1 Fall Risk Factor Assessment Question Answer Date of Assessment Author Presented to ED because of fall 0 04/27/2025 9:42 PM EDT Stella Daniels RN Age > 70 0 04/27/2025 9:42 PM EDT Stella Daniels RN Intoxicated with alcohol or substance confusion 0 04/27/2025 9:42 PM EDT Stella Daniels RN Ambulates or transfers with assistive devices or assist 1 04/27/2025 9:42 PM EDT Stella Daniels RN Unable to ambulate or transfer 0 04/27/2025 9:42 PM EDT Stella Daniels RN Nursing judgement 1 04/27/2025 9:4 2 PM EDT Stella Daniels RN KINDER 1 Fall Risk Score 2 2 025 9:42 PM EDT Stella Daniels RN High Fall Risk Interventions for Scores 1 and above Fall risk bundle components in place as defined below 04/27/2025 9:42 PM EDT Stella Daniels RN * Enhanced Neuro Checks Question Answer Date of Assessment Author Speech/Language Clear 05/15/2025 4:20 AM EST Florina Luna RN * [place] Suicide Severity Rating Scale Question Answer Date of Assessment Author Is patient awake, alert, and able to answer questions appropriately? Yes 04/29/2025 4:37 AM EDT Britt Cavazos, RN * Boarding Screenings Question Answer Date of Assessment Author Have you done screenings in triage or boarder navigator? Yes 04/29/2025 4:39 AM EDT Britt Helms , RN * Patient Belongings Placed in Locker Question Answer Date of Assessment Author Medical Equipment Cane 04/27/2025 10:46 PM Stella Correa RN * HEENT Question Answer Date of Assessment Author HEENT (WDL) WDL 04/29/2025 7:54 AM EDT Marian Dailey RN * Peripheral Vascular Question Answer Date of Assessment Author Peripheral Vascular (WDL) X 04/29/2025 7:54 AM EDT Marian Salmon RN * Weight in (lb) to have BMI = 25 Answer Date of Assessment Author 183.9 04/27/2025 10:46 PM Stella Correa RN * BMI (Calculated) Answer Date of Assessment Author 74.8 05/18/2025 5:06 AM Gualberto Atwood RN * Percent Excess Weight Loss Answer Date of Assessment Author 0 04/27/2025 10:46 PM Stella Correa RN * Weight Change Since Preop Answer Date of Assessment Author 249.5 05/18/2025 5:06 AM Gualberto Atwood RN * Initial Excess Weight Answer Date of Assessment Author -80.74 04/27/2025 10:46 PM Stella Correa RN * IBW in kg (Bariatric) Answer Date of Assessment Author 80.74 04/27/2025 10:46 PM Stella Correa RN * IBW in lb (Bariatric) Answer Date of Assessment Author 178 04/27/2025 10:46 PM Stella Correa RN * Weight Change Since Last Visit Answer Date of Assessment Author 0.4 05/18/2025 5:06 AM Gualberto Atwood RN * Percent of IBW Answer Date of Assessment Author 339.61 04/27/2025 10:46 PM Stella Correa RN * EBW (kg) Answer Date of Assessment Author 193.4 04/27/2025 10:46 PM Stella Correa RN * EBW (lb) Answer Date of Assessment Author 426.5 04/27/2025 10:46 PM Stella Correa RN * Difference in Weight Since Last Visit Answer Date of Assessment Author 0.4 05/18/2025 5:06 AM Gualberto Atwood RN * Housing Circumstances-Z Codes Question Answer Date of Assessment Author Housing Circumstances (select all that apply) Low Income (101-300% Federal Poverty Guidlines) - Z596 04/28/2025 1:00 PM EDT Mayra Apodaca RN * Clinical Progression Answer Date of Assessment Author Gradually improving 05/17/2025 10:28 PM EST Ivan Slaughter RN * Temp (in Celsius) for [place] IV Answer Date of Assessment Author 36.5 05/18/2025 7:34 AM EST Char Hinojosa CNA * Pain Assessment Question Answer Date of Assessment Author Pain Location Back 05/18/2025 9:06 AM Kylee Ravi RN Pain Orientation Lower 05/18/2025 9:06 AM Kylee Ravi RN Pain Radiating Towards down back of both legs 05/10/2025 8:14 AM EDT Tamar Lynn RN Pain Descriptors Discomfort 05/18/2025 9:06 AM Kylee Ravi RN Pain Onset Ongoing 05/18/2025 9:06 AM Kylee Ravi RN Pain Frequency Constant/continuous 05/18/2025 9 :06 AM Kylee Ravi RN Patient's Stated Pain Goal 3 05/18/2025 9:06 AM Kyele Ravi RN Patient is asleep Yes, assume pain is decreased 05/18/2025 9:06 AM Kylee Ravi RN Pain Type Chronic pain 05/18/2025 9:06 AM Kylee Ravi RN Pain Assessment 0-10 (Adult DVPRS/Peds 0-10) 05/18/2025 9:06 AM Kylee Ravi RN * Time-Out Question Answer Date of Assessment Author Pre-Meds Ordered/Given Not applicable 05/18/2025 8:07 AM Kylee Ravi RN Name of Provider Performing Procedure Kylee Gonzalez RN 05/18/2025 8:07 AM Santy Antonio RN Correct Patient Yes 05/18/2025 8:07 AM Kylee Hunter RN Correct Site Yes 05/18/2025 8:07 AM Kylee Kendrick RN Site Marked Not applicable 05/18/2025 8:07 AM Kylee Leach RN Correct Side Yes 05/18/2025 8:07 AM Kylee Kendrick RN Correct Patient Position Yes 05/18/2025 8:07 AM Kylee Ravi RN What Procedure? Central/PICC line removal 05/18/2025 8:07 AM Kylee Ravi RN Correct Procedure Yes 05/18/2025 8:07 AM Kylee Ravi RN Antibiotics Ordered/Given Not applicable 05/18/2025 8:07 AM Kylee Ravi RN Consents Verified? Yes 05/18/2025 8:07 AM Kylee Ravi RN Rad Studies Available? Not applicable 05/18/2025 8:07 AM Kylee Ravi RN Lab Results Available? Not applicable 05/18/2025 8:07 AM Kylee Ravi RN Safety Precautions Reviewed? Yes 05/18/2025 8:07 AM Kylee Ravi RN * Constipation Question Answer Date of Assessment Author Constipation Precipitating Factors Disease related;Medication (Iron supplements, opioids, antidepressants, etc.);Diet;Surgery 05/11/2025 4:30 PM Tamar Scruggs RN Problems with Passing Stool Incomplete passage of stool 05/11/2025 4:30 PM LOGANT Tamar Lynn RN Current Interventions Stool Softener 05/11/2025 4:30 PM Tamar Scruggs RN * Nutrition Question Answer Date of Assessment Author Diet Supplements Kyree Packet 05/14/2025 8:45 PM Florina Johnson RN Diet Type Regular;Consistent C arb 2 05/18/2025 8:00 AM Kylee Ravi RN Feeding Able to feed self 05/18/2025 8:00 AM Kylee Ravi RN Appetite Good 05/18/2025 8:00 AM Kylee Kendrick RN * IBW/kg (Calculated) Answer Date of Assessment Author 77.6 04/27/2025 10:46 PM EDT Stella Daniels RN * Adult Low Range Vt 6mL/kg Answer Date of Assessment Author 465.6 04/27/2025 10:46 PM EDT Stella Daniels RN * Adult Moderate Range Vt 8mL/kg Answer Date of Assessment Author 620.8 04/27/2025 10:46 PM EDT Stella Daniels RN * Adult High Range Vt 10mL/kg Answer Date of Assessment Author 776 04/27/2025 10:46 PM EDT Stella Daniels RN * Respiratory Interventions Question Answer Date of Assessment Author Respiratory Interventions Cough and deep breathing 05/18/2025 8:00 AM Kylee Ravi RN * Cough and Deep Breathe Question Answer Date of Assessment Author Cough And Deep Breathing done independently per patient 05/18/2025 8:00 AM Kylee Ravi RN * Incentive Spirometry Question Answer Date of Assessment Author Administration (IS) education provided 05/13/2025 8:00 PM EDT Asiya Nix RN * Patient Belongings at Bedside Question Answer Date of Assessment Author Belongings at Bedside Retained by johann conklin and/or family/legal outside medical sales representative who assumes responsibility 05/04/2025 8:00 AM EDT Petros Smith RN * Patient Belongings Sent to Safe/Security Question Answer Date of Assessment Author Belongings Sent to Safe/Security None 05/04/20 8:00 AM EDT Petros Smith RN * Integumentary Question Answer Date of Assessment Author Skin Color Red 05/18/2025 8:00 AM Kylee Ravi RN Skin Condition/Temp Dry;Warm;Flaky 05/18/2025 8 :00 AM Kylee Ravi RN Skin Integrity Excoriation;Redness; Sc aling 05/18/2025 8:00 AM Kylee Ravi RN Skin Turgor Non-tenting 05/18/2025 8:00 AM Kylee Ravi RN 4 Eyes Skin Assessment Completed Yes 04/29/2025 7:00 PM EDT Chuyita Kim RN Manual Dual Sign Off 2nd RN Tiffani DAVILA 04/29/2025 7:00 PM EDT Chuyita Kim RN Skin Tone Light 05/05/2025 4:00 PM EDT Nitza Mishra RN Bruising Characteristics Generalized 025 8:00 AM Kylee Ravi RN Integumentary (WDL) X 05/18/2025 8 :00 AM Kylee Ravi RN Redness Location Groin, abdomen, coccyx 05/18/20 8:00 AM Kylee Ravi RN Redness Characteristics MASD 05/18/20 8:00 AM Kylee Ravi RN Scaling Location BLE 05/18/2025 8:00 AM Kylee Ravi RN Scaling Characteristics Dry, flakey, jairo 05/18 8:00 AM Kylee Ravi RN * Patient Belongings Sent Home Question Answer Date of Assessment Author Belongings Sent Home Clothing;Electronic devices 05/18/2025 11:00 AM Kylee Ravi RN Patient Electronics Cell phone 05/18/2025 11:00 AM Kylee Rg RN * Pain Score Answer Date of Assessment Author 7 05/18/2025 9:06 AM Stephie Ravi RN * Confusion Assessment Method (CAM) Question Answer Date of Assessment Author Acute Onset and Fluctuating Course (1A) No 05/18/2025 8:00 AM Kylee Ravi RN * Feature 3: Altered Level of Consciousness Answer Date of Assessment Author Negative 05/18/2025 8:00 AM Stephie Ravi RN * Sedation Scales Question Answer Date of Assessment Author Sedation Scale Used Crews Agitation Sedation Scale 05/18/2025 8:00 AM Kylee Ravi RN RASS 0 05/18/2025 8:00 AM Kylee Kendrick RN Pasero Opioid-Induced Sedation Scale (POSS) 1 05/18/2025 8:00 AM Kylee Ravi RN * Urine Output/Assessment Question Answer Date of Assessment Author Urine 1100 05/04/2025 3:[address] RN Urine Amount Large 05/07/2025 9:00 PM EDT Judd Ignacio RN * Stool Output/Assessment Question Answer Date of Assessment Author Most Recent BM Date [id number] 05/18/2025 9:00 AM Kylee Reynaga RN * Fall Risk Calculated Score Answer Date of Assessment Author Merissa Falcon 05/18/2025 8:00 AM Stephie Ravi RN * Patient Specific Goals Question Answer Date of Assessment Author Patient/Family-Specific Goals (Include Timeframe) Pt will remain free from falls/injury throughout this shift. 05/18/2025 9:00 AM Kylee Ravi RN Individualized Care Needs Safety 2024 9:00 AM Kylee Ravi RN Anxieties, Fears or Concerns None stated 05/18/2025 9:00 AM Kylee Ravi RN * Able to Complete Psychiatric Screening Question Answer Date of Assessment Author Were you able to complete al l the behavioral health screenings? Yes 04/29/2025 6:00 PM EDChuyita Escobar RN * Drug Screening Question Answer Date of Assessment Author Have you used any substances (canabis, cocaine, heroin, hallucinogens, inhalants, etc.) in the past 12 months? No 04/29/2025 6:00 PM Chuyita Nunez R N Have you used any prescripti on drugs other than prescribed in the past 12 months? No 04/29/2025 6:00 PM Chuyita Nunez R N Is a toxicology screen needed? No 04/29/2025 6:00 PM Chuyita Nunez RN * Delirium Assessment Question Answer Date of Assessment Author Delirium Prevention & Management Yes 05/18/2025 8:00 AM Kylee Ravi RN Delirium Prevention & Management: Early Mobility Ambulate to extent of patient's ability;Educate patient and family about the benfits of early mobility in the hospital 05/18/2025 8:00 AM Kylee Ravi RN Delirium Prevention & Management: Cognitive Engagement Familiar objects from home provided;Emotional support provided;Optimize pain and other medication management;Reorienting communication;Environme ntal consistency promoted 05/18/2025 8:00 AM Kylee Ravi RN Delirium Prevention & Management: Optimize Sleep/Wake Cycles Calming techniques provided;Cluster care to decrease awakenings;Educate patient and family about optimizing sleep 05/18/2025 8:00 AM Kylee Ravi RN Delirium Scale Used Confusion Assessment Method 05/18/2025 8:00 AM Kylee Ravi RN * Assume Pain is Present Answer Date of Assessment Author No 05/10/2025 2:13 PM EDT Rodrick Lynn RN * Unplanned Readmission Scores Question Answer Date of Assessment Author Unplanned Readmission Score 29.42 05/18/2025 8: 01 AM EST Matthieu Sebastian * Malnutrition Screening Tool (MST) Question Answer Date of Assessment Author Have you recently lost weigh t without trying? 0 05/04/2025 8:00 AM EDT Petros Smith RN Have you been eating poorly because of a decreased appetite? 0 05/04/2025 8:00 AM EDT Petros Estrada RN * Weight Loss Score Answer Date of Assessment Author 0 05/04/2025 8:00 AM EDT Carolynn Smith RN * Malnutrition Score Answer Date of Assessment Author 0 05/04/2025 8:00 AM EDT Carolynn Smith RN * Shelley Coma Scale Numeric Answer Date of Assessment Author 15 05/18/2025 8:00 AM EST Stephie Gonzalez RN * Hyperglycemia Management Answer Date of Assessment Author blood glucose monitored 05/16/2025 7:49 PM EST Ivan Wynn RN * Hypoglycemia Management Answer Date of Assessment Author blood glucose monitored 05/15/2025 11:48 AM EST Santy Garcia RN * Elevate heels task - custom formula Answer Date of Assessment Author 1 05/17/2025 8:00 PM EST Gualberto Slaughter RN * Neurological Question Answer Date of Assessment Author Neuro Pertinent Negatives Alert and oriented x 4;Speech clear 04/28/2025 3:00 AM EDT Stella Daniels RN Neuro (WD) WDL 04/28/2025 3:00 AM EDT Stella Cardenas RN * Gastrointestinal Question Answer Date of Assessment Author Gastrointestinal (WDL) X 04/29/2025 7:54 AM EDT Marian Salmon RN * Skin Color/Condition Question Answer Date of Assessment Author Skin Comments right foot wound 04/28/2025 3:00 AM EDT Stella Daniels RN Skin Color/Condition (WDL) X 04/28/2025 3:0 0 AM EDT Stella Daniels RN * Psychosocial Question Answer Date of Assessment Author Psychosocial (WDL) WDL 04/29/2025 7:54 AM EDT Marian Salmon RN * Cardiac Question Answer Date of Assessment Author Cardiac Regularity Regular 04/28/2025 3:00 AM EDT Stella Daniels RN Cardiac Pertinent Negatives Heart rate regular 04/28/2025 3:00 AM EDT Stella Daniels R N Cardiac (WD) WDL 04/28/2025 3:00 AM EDT Stella Mauro RN * Genitourinary Question Answer Date of Assessment Author Urinary Symptoms/Conditions Retention 04/27/2025 9: 45 PM EDT Stella Daniels RN Genitourinary (WD) X 04/27/2025 9:45 PM ED T Stella Daniels RN * Respiratory Question Answer Date of Assessment Author Ability to Speak Speaking in full sentences 04/28/2025 3:00 AM EDT Stella Daniels RN Respiratory (WD) WDL 04/28/2025 3:00 AM EDT Stella Daniels RN * Musculoskeletal Question Answer Date of Assessment Author Musculoskeletal (WDL) X 04/27/2025 9:45 PM EDT Stella Daniels RN * Vitals Timer Question Answer Date of Assessment Author Update Vitals Alert Interval 240 04/27/2025 11:00 PM EDT Stella Daniels RN Restart Vitals Timer Yes 05/18/2025 7:[address] Interface, Doc Flowsheet In Restart Vitals Timer Yes 04/29/2025 6:00 AM E DT Brown, Abygail L * Respiratory Assessment Question Answer Date of Assessment Author Respiratory (WDL) X 05/01/2025 9:10 AM EDT Jada Ring RN * Integumentary Question Answer Date of Assessment Author Integumentary (WDL) X 05/01/2025 9:10 AM ED Jada Contreras RN * Modified Yana Question Answer Date of Assessment Author Activity 2 05/01/2025 9:40 AM EDT Jada Cummins, LOLA Respiration 2 05/01/2025 9:40 AM EDT Jada Cummins, LOLA Hemodynamic Stability 2 05/01/2025 9:40 AM EDT Jada Ring, LOLA Consciousness 2 05/01/2025 9:40 AM EDT Jada Chavez RN Oxygen Saturation 2 05/01/2025 9:40 AM EDT Jada Ring RN Modified Yana Score 14 05/01/2025 9:40 AM EDT Jada Ring RN Pain 2 05/01/2025 9:40 AM EDT Jada Cummins RN Emetic Symptoms 2 05/01/2025 9:40 AM EDT Jada Cummins, LOLA * Hourly Rounding Question Answer Date of Assessment Author Activity Assistance Held 04/29/2025 6:48 AM ED T Britt Helms RN Toileting Catheter 04/29/2025 6:48 AM EDT Britt Helms, LOLA Call Light Call light present a nd within reach;Oriented to call light 04/29/2025 4:35 AM Britt Barr RN Rest/ Sleep Awake 04/29/2025 6:48 AM Britt Barr RN Rest/ Sleep Enhancement Care clustered t o minimize awakenings 04/29/2025 6:48 AM EDBritt He, LOLA Completed Hourly Rounding Yes 04/29/2025 6:31 PM EDT Marian Salmon RN Plan of Care Reviewed With Patient;Family 04/29/2025 6:48 AM EDBritt He, RN * Standardized Assessments Question Answer Date of Assessment Author Standardized Assessments [facility] 6-Clicks Mobility Assessment 05/17/2025 11:56 AM Corey Burr IV * [facility] 6-Click Daily Activities Question Answer Date of Assessment Author Help from Other: Don/Doff Re gular Lower Body Clothings 2 04/28/2025 9:01 AM EDT Claudio Kim Help From Other: Bathing 2 04/28/2025 9:01 AM EDT Claudio Kim Help From Other: Toileting 2 04/28/2025 9:0 1 AM EDT Claudio Kim Help From Other: Don/Doff Up per Body Clothings 4 04/28/2025 9:01 AM EDT Claudio Kim Help From Other: Grooming 4 04/28/2025 9:01 AM EDT Claudio Kim Help From Other: Eating Meals 4 04/28/2025 9:01 AM EDT Claudio Kim Ampa 6 Click - Daily Activities Score 18 9:01 AM EDT Claudio Kim * Freddie Index Question Answer Date of Assessment Author Feeding 10 05/12/2025 12:31 PM EDT Melba moreTrudyBeatriz Bathing 0 05/12/2025 12:31 PM EDT Melba more, Beatriz Grooming 5 05/12/2025 12:31 PM EDT Melba more, Beatriz Dressing 5 05/12/2025 12:31 PM EDT Melba burton, Beatriz Bowels 5 05/12/2025 12:31 PM EDT Melba more, Beatriz Bladder 0 05/12/2025 12:31 PM EDT Melba more, Beatriz Toilet Use 0 05/12/2025 12:31 PM EDT Beatriz Carroll Transfers (Bed to Chair and Back) 5 025 12:31 PM EDT Beatriz Gaspar Mobility (on Level Surfaces) 0 05/12/2025 1 2:31 PM EDT Beatriz Gaspar Stairs 0 05/12/2025 12:31 PM EDT Beatriz Carroll Total Score 30 05/12/2025 12:31 PM EDT Beatriz Carroll * Standardized Tests Question Answer Date of Assessment Author Standardized Tests Freddie Index 05/12/2025 12:31 PM E DT Beatriz Gaspar * Elopement Risk Screen Question Answer Date of Assessment Author Does the patient exhibit any of the following behaviors? No 05/18/2025 8:00 AM Kylee Ravi RN Does the patient have a cour t ordered legal guardian? No 05/18/2025 8:00 AM Kylee Ravi RN * Manual Muscle Testing - LLE Question Answer Date of Assessment Author Manual Muscle Testing WFL 05/12/2025 12:32 PM EDT Isiah Mckeon Hip flexion 4 04/28/2025 8:38 AM EDT Maribel Khan Knee Extension 4 04/28/2025 8:38 AM EDT Maribel Bergman Ankle Dorsiflexion 4 04/28/2025 8:38 AM EDT Maribel Perea * Manual Muscle Testing - RLE Question Answer Date of Assessment Author Hip flexion 3+ 05/12/2025 12:32 PM EDT Thelma er, Isiah Hip Extension 3+ 05/12/2025 12:32 PM EDT Rid nerIsiah Ankle Dorsiflexion 3+ 05/12/2025 12:32 PM ED T Isiah Mckeon * Manual Muscle Testing - RUE Question Answer Date of Assessment Author Manual Muscle Testing - RUE WFL 05/12/2025 12 :32 PM EDT Isiah Mckeon * Manual Muscle Testing - LUE Question Answer Date of Assessment Author Manual Muscle Testing - LUE L 05/12/2025 12 :32 PM EDT Isiah Mckeon * Participants in Care Question Answer Date of Assessment Author Greenhouse Technician N/A 05/17/2025 11:56 AM Corey Garza IV * Dynamic Sitting Balance Question Answer Date of Assessment Author Level of Assistance Contact guard 05/17/2025 1 1:56 AM Corey Burr IV Dynamic Sitting - Interventions Sitting EOB 05/09/2025 11:48 AM EDElmo Marcelo Dynamic Sitting-Balance Support No upper extremity support;Feet supported 05/17/2025 11:56 AM Corey Burr IV Dynamic Sitting-Balance Anterior/Posteri or weight shifts;Lateral weight shifts 05/17/2025 11:56 AM Corey Burr IV * Cognition Question Answer Date of Assessment Author Orientation Level Oriented X4 05/12/2025 12:32 PM EDT Isiah Mckeon * Static Sitting Balance Question Answer Date of Assessment Author Static Sitting-Level of Assistance Standby assist 05/17/2025 11:56 AM Corey Burr IV Stating Sitting - Interventions Sitting EOB 05/09/2025 11:48 AM EDT Elmo Lima Static Sitting-Balance Support No upper extremity support;Feet supported 05/17/2025 11:56 AM Corey Burr IV * Static Standing Balance Question Answer Date of Assessment Author Static Standing-Level of Assistance Maximum assistance 05/17/2025 11:56 AM Corey Burr IV Static Standing - Interventions Standing w DEFENSE ANALYST 05/09/2025 11:48 AM Elmo Lester Static Standing-Balance Support Right upper extremity support;Left upper extremity support 05/17/2025 11:56 AM Corey Burr IV * OT Assessment Question Answer Date of Assessment Author OT Assessment Results Impaired ADL performance;Impaired IADL performance;Decreased endurance/ventilation/ga s exchange;Impaired sensation/sensory processing;Impaired functional mobility;Decreased gross motor control/coordination;Imp aired postural/trunk control;Impaired balance 05/12/2025 12:31 PM Beatriz Starks Occupational Profile Review of medical/therapy records and extensive additional review of physical, cognitive, or psychosocial history 05/12/2025 12:31 PM Beatriz Starks Clinical Decision Making High 05/12/2025 12:31 PM Beatriz Starks Barriers to Discharge Comorbidities 05/12/2025 12:31 PM Beatriz Starks Overall Eval complexity Complex 05/12/20 12:31 PM Beatriz Starks Evaluation/Treatment Tolerance Patient limited by fatigue;Patient limited by pain 05/12/2025 12:31 PM Beatriz Starks Rehab Potential Good, to achieve sta nasra therapy goals 05/12/2025 12:31 PM Beatriz Starks Performance Deficits Activities of daily living (ADLs);Instrumental activities of daily living (IADLs);Body functions;Body structures;Personal;Phys ical;Routines;Habits 05/12/2025 12:31 PM Beatriz Starks * C-SSRS (Frequent Screener) Question Answer Date of Assessment Author Is patient awake, alert, and able/willing to answer questions appropriately? Yes 05/18/2025 8:00 AM Kylee Ravi RN 1. Wish to be (Past 1 Month) No 025 8:00 AM Kylee Ravi RN 2. Non-Specific Active Suici jonny Thoughts (Past 1 Month) No 05/18/2025 8:00 AM Kylee Ravi RN 6. Suicidal Behavior (Lifetime) No 8:00 AM Kylee Ravi, RN * Discharge Planning Continued Question Answer Date of Assessment Author Transportation Home at Discharge Medical Transport 05/18/2025 8:00 AM Chayo Gordon RN * [facility] 6-Clicks Mobility Assessment Question Answer Date of Assessment Author Difficulty patient has turni ng over in bed (including adjusting bedclothes, sheets, and blankets)? 3 05/17/2025 11:56 AM Alverto Burr am IV Difficulty patient has sitti ng down on and standing up from a chair with arms (wheelchair, bedside commode, etc.)? 2 05/17/2025 11:56 AM Gigi Burr IV Difficulty patient has movin g from lying on back to sitting on the side of the bed? 3 05/17/2025 11:56 AM Kike Burr IV How much help does the patie nt need moving to and from a bed to a chair (including a wheelchair)? 1 05/17/2025 11:56 AM Alverto Burr am IV How much help does the patie nt need to walk in hospital room? 1 05/17/2025 11:56 AM Corey Bosch IV How much help does the patie nt need climbing 3-5 steps with a railing? 1 05/17/2025 11:56 AM Alverto Burr am IV [facility] 6-Clicks Mobility Assessment Total 11 05/17/2025 11:56 AM Alverto Burr am, IV * PT Therapeutic Procedures Time Entry Question Answer Date of Assessment Author Therapeutic Activity Time Entry 25 11:56 AM Corey Burr IV * OT Therapeutic Procedures Time Entry Question Answer Date of Assessment Author Therapeutic Exercise Time Entry 10 5 11:58 AM Joceline Guzman * HEENT Question Answer Date of Assessment Author ANAND (FRANCISCA) X 05/18/2025 8:00 AM Kylee Kendrick RN R Eye Mildly impaired vision 05/18/2025 8:00 AM Kylee Ravi RN L Eye Mildly impaired vision 05/18/2025 8:00 AM Kylee Ravi RN Throat Intact 05/11/2025 4:30 PM Tamar Castrejon RN Tongue [place];Moist 05/11/2025 4:30 PM Tamar Castrejon RN Mucous Membrane(s) Moist;[place];Intact 05/11/2025 4:30 P M Tamar Scruggs RN Teeth Missing teeth 05/18/2025 8:00 AM Kylee Wade RN Neck Trachea midline;Symmetrical 05/11/2025 4:30 PM Tamar Scruggs RN Lips Intact 05/11/2025 4:30 PM Tamar Castrejon RN * Infection Management Answer Date of Assessment Author aseptic technique maintained 05/16/2025 7:49 PM Ivan Atwood RN * Activity Assistance Provided Answer Date of Assessment Author assistance, 2 people 05/18/2025 11:31 AM Kylee Leach RN * Adaptive Equipment Use Answer Date of Assessment Author used independently 05/15/2025 11:48 AM Santy Espino, LOLA * Supportive Measures Answer Date of Assessment Author active listening utilized;se lf-care encouraged 05/17/2025 9:53 PM Ivan Atwood RN * Oral Nutrition Promotion Answer Date of Assessment Author physical activity promoted 05/15/2025 11:48 AM Santy Santiago, RN * Pressure Reduction Techniques Answer Date of Assessment Author frequent weight shift encouraged 05/17/2025 9:53 PM Ivan Atwood RN * Fever Reduction/Comfort Measures Answer Date of Assessment Author lightweight bedding;lightweight clothing 025 7:49 PM Ivan Atwood RN * Pressure Reduction Devices Answer Date of Assessment Author positioning supports utilized 05/13/2025 8:00 PM Asiya Bajwa RN * Diversional Activities Answer Date of Assessment Author television 05/15/2025 11:48 AM Santy Alfredo, RN * Nutrition Interventions Answer Date of Assessment Author food preferences provided 05/15/2025 11:48 AM Santy Blank, RN * Positioning/Transfer Devices Answer Date of Assessment Author pillows 05/16/2025 7:49 PM EST Gualberto Slaughter RN * Infection Prevention Answer Date of Assessment Author environmental surveillance performed;equipment surfaces disinfected;hand hygiene promoted;rest/sleep promoted;personal protective equipment utilized 05/01/2025 11:30 AM EDT Rocío Crandall RN * Outcome Evaluation Answer Date of Assessment Author Reviewed of night plan of ca re with pt. pt verbalized understanding. 05/14/2025 10:36 PM EST Florina Hinojosa RN * Family/Support System Care Answer Date of Assessment Author self-care encouraged 05/16/2025 7:49 PM EST Ivan Slaughter RN * Sleep/Rest Enhancement Answer Date of Assessment Author consistent schedule promoted ;awakenings minimized;family presence promoted;regular sleep/rest pattern promoted;natural light exposure provided 05/18/2025 11:31 AM EST Kylee Gonzalez RN * Skin Protection Answer Date of Assessment Author incontinence pads utilized;s ilicone foam dressing in place;skin sealant/moisture barrier applied 05/13/2025 8:00 PM EDT Asiya Nix RN * Self-Care Promotion Answer Date of Assessment Author independence encouraged 05/16/2025 7:49 PM EST Ivan Wynn RN * Safety Interventions Question Answer Date of Assessment Author Safety Precautions/Falls Reduction assistive device/personal items within reach 04/27/2025 9:42 PM EDT Stella Daniels RN * Safety Promotion Question Answer Date of Assessment Author Medication Review/Management medications reviewed 05/06/2025 8:00 PM EDT Judd Zavaleta RN * Individualization Question Answer Date of Assessment Author Patient-Specific Considerations BMI greater than 40;limb precautions 05/01/2025 9:10 AM EDT Jada Ring, LOLA * Goal: Anesthesia/Sedation Recovery Question Answer Date of Assessment Author Outcome Anesthesia/Sedation Recovery progressing 05/01/2025 9:10 AM EDT Jada Ring, RN * General Emergency Care CPG Interventions Question Answer Date of Assessment Author Coping Interventions anticipatory guidan ce provided;care explained to patient/family prior to performing;safe, supportive environment facilitated 04/27/2025 9:42 PM Stella Correa RN General Care Management calm environment promoted;family presence promoted 04/27/2025 9:42 PM Stella Correa RN * Discharge Needs Assessment Question Answer Date of Assessment Author Discharge Facility/Level of Care Needs [facility]-Rehab facilty 05/18/2025 8:00 AM Chayo Gordon RN Equipment Needed After Discharge none 05/18/2025 8:00 AM Chayo Gordon RN Equipment Currently Used at Home cane, straight;walker, rolling 05/18/2025 8:00 AM Chayo Gordon RN Anticipated Changes Related to Illness inability to care for self 05/18/2025 8:00 AM Chayo Gordon RN Transportation Anticipated medical transport 05/18/2025 8:00 AM Chayo Gordon RN Transportation Concerns none 05/18/20 8:00 AM Chayo Gordon RN Current Discharge Risk chronically ill 8:00 AM Chayo Gordon RN Concerns to be Addressed discharge planning 12/2024 8:00 AM Chayo Gordon RN Readmission Within the Last 30 Days no previous admission in last 30 days 05/18/2025 8:00 AM Chayo Gordon RN Patient/Family Anticipated Services at Transition rehabilitation services 05/18/2025 8:00 AM Chayo Gordon RN Patient's Choice of Community Agency(s) [facility] 05/18/2025 8:00 AM Chayo Gordon RN Patient/Family Anticipates Transition to inpatient rehabilitation facility 05/18/2025 8:00 AM Chayo Gordon RN Offered/Gave Vendor List yes 025 8:00 AM Chayo Gordon RN Does the patient need discharge transport arranged? Yes 05/18/2025 8:00 AM Chayo Gordon RN Has discharge transport been arranged? Yes 05/18/2025 8:00 AM Chayo Gordon RN What day is the transport expected? [id number] 05/18/2025 8:00 AM Chayo Gordon RN What time is the transport expected? [id number] 05/18/2025 8:00 AM Chayo Gordon RN Who is requesting discharge planning? Provider 05/18/2025 8:00 AM Chayo Gordon RN * Goal: Optimal Comfort and Wellbeing Question Answer Date of Assessment Author Outcome Optimal Comfort and Wellbeing progressing 05/01/2025 9:10 AM Jada Christensen RN Elevated Risk Identified situational anxiety;pain 05/01/2025 9:10 AM EDJada Contreras RN * Coping Strategies Question Answer Date of Assessment Author Trust Relationship/Rapport care explained;emotional support provided;empathic listening provided;questions answered;reassurance provided;thoughts/feelin gs acknowledged 05/06/2025 8:00 PM EDJudd Gonzalez RN * Respiratory Interventions Question Answer Date of Assessment Author Airway/Ventilation Management oxygen therapy provided;position adjusted 05/06/2025 8:00 PM Judd Chang RN * Goal: Minimized Risk/Safety Maintenance Question Answer Date of Assessment Author Elevated Risk Identified VTE (venous thromboembolism);infect ion 05/01/2025 9:10 AM Jada Christensen RN Outcome Minimized Risk and Safety progressing 05/01/2025 9:10 AM Jada Christensen RN * Goal: Physiologic Homeostasis Question Answer Date of Assessment Author Elevated Risk Identified respiratory compromise;postoperati ve nausea and vomiting 05/01/2025 9:10 AM Jada Christensen RN Outcome Physiologic Homeostasis progressing 05/01/2025 9:10 AM Jada Christensen RN Nausea/Vomiting Interventions sips of clear liquids given;nausea triggers minimized 05/01/2025 9:10 AM Jada Christensen RN * PACU Interventions Question Answer Date of Assessment Author Warming Device Warm blankets 05/01/2025 9:10 AM Jada Velasquez RN * Precautions Question Answer Date of Assessment Author Right Lower Extremity Weight Bearing Status Non-Weight Bearing 05/12/2025 12:32 PM EDT Isiah Mckeon Medical Precautions Fall precautions 05/12/2025 12:32 PM EDT Isiah Mckeon * Date of OT Session Question Answer Date of Assessment Author OT Initials SG 05/17/2025 11:58 AM Joceline Valle Date of OT Session [id number] 05/17/2025 11:58 AM Joceline Gutierrez * Participants in Care Question Answer Date of Assessment Author Family/Caregiver Spouse 04/28/2025 9:01 AM EDT Claudio Barrios Family/Caregiver Present N 05/17/2025 11:58 AM Joceline Guzman * Presentation Question Answer Date of Assessment Author Lines and Tubes Telemetry;Wound vac;Urinary catheter;PICC 05/17/2025 11:58 AM Joceline Guzman Pre-Session Supine;Head of bed elevated;Lines intact 05/17/2025 11:58 AM Joceline Guzmna Post-Session Supine;Head of bed elevated;Lines intact;RN notified;Call light in reach 05/17/2025 11:58 AM Joceline Guzman Pre-Session Comments RN consented to treatment 05/17/2025 11:58 AM Joceline Guzman Post-Session Comments Pt positioned for comfort, all needs in reach. 05/17/2025 11:58 AM Joceline Guzman * [facility] Question Answer Date of Assessment Author [facility] Daily Mobility Score 3 05/17/2025 11 :58 AM Joceline Guzman * Sensation Question Answer Date of Assessment Author Light Touch: Right Upper Extremity Intact 2024 12:32 PM EDIsiah Zavala * Sensation Question Answer Date of Assessment Author Light Touch: Left Upper Extremity Intact 12:32 PM EDIsiah Zavala * Sensation Question Answer Date of Assessment Author Light Touch: Right Lower Extremity Absent 2024 12:32 PM EDIsiah Zavala * Sensation Question Answer Date of Assessment Author Light Touch: Left Lower Extremity Absent 12:32 PM EDIsiah Zavala * Bed Mobility Interventions Question Answer Date of Assessment Author Bed Mobility Interventions Verbal cues provided for hand/body positioning and sequencing to/from EOB. Increased time required for sequencing 05/17/2025 11:56 AM Corey Burr IV * Bed Mobility Exam: Scooting/Bridging Question Answer Date of Assessment Author Level of Greenlee Contact guard 05/17/2025 11:58 A M Joceline Guzman Physical/Nonphysical Assist Verbal Cues;Minimal cues 05/17/2025 11:58 AM Aristides Guzmanly Assistive Device Overhead trapeze 05/17/2025 11:58 AM Joceline Guzman * Bed Mobility Exam: Rolling/Turning Question Answer Date of Assessment Author Level of Greenlee Contact guard 05/17/2025 11:56 AM Corey Burr IV Physical/Nonphysical Assist Verbal Cues;Set-up required;Minimal cues 05/17/2025 11:56 AM Corey Burr IV Assistive Device Bed rails;Other 05/17/2025 11:5 6 AM Corey Burr IV * Bed Mobility Exam: Supine to Sit Question Answer Date of Assessment Author Level of Greenlee Minimum assist (75 % patient's effort) 05/17/2025 11:58 AM Joceline Guzman Physical/Nonphysical Assist HOB elevated;Verbal Cues;Minimal cues 05/17/2025 11:58 AM Joceline Guzman Assistive Device Overhead trapeze 05/17/2025 11:58 AM Joceline Guzman * Bed Mobility Exam: Sit to Supine Question Answer Date of Assessment Author Level of Greenlee Stand-by assist 05/17/2025 11:58 AM Joceline Guzman Physical/Nonphysical Assist Verbal Cues;Minimal cues 05/17/2025 11:58 AM Joceline Guzman Assistive Device Overhead trapeze 05/17/2025 11:58 AM Joceline Guzman * Transfer Exam: Sit to stand Question Answer Date of Assessment Author Level of Greenlee Maximum assist (25 % patient's effort) 05/17/2025 11:58 AM Joceline Guzman Physical/Nonphysical Assist Verbal Cues;Nonverbal cues (demo/gestures);Addit ional assist utilized for safety;Set-up required;Minimal cues 05/17/2025 11:58 AM Joceline Guzman Assistive Device Walker, rolling 05/17/2025 11:58 AM Joceline Reddy * Transfer Exam: Stand to Sit Question Answer Date of Assessment Author Level of Greenlee Maximum assist (25 % patient's effort) 05/17/2025 11:58 AM Joceline Guzman Physical/Nonphysical Assist Verbal Cues;Nonverbal cues (demo/gestures);Addit ional assist utilized for safety;Minimal cues 05/17/2025 11:58 AM Joceline Guzman Assistive Device Walker, rolling 05/17/2025 11:58 AM Louise TAO Joceline King * Transfer Exam: Bed to Chair/Chair to Bed Question Answer Date of Assessment Author Type of Transfer Overhead lift 05/04/2025 10:4 1 AM EDT Karlie Dotson Level of Greenlee Dependent 05/04/2025 10:41 AM EDT Karlie Dotson Physical/Nonphysical Assist Additional assist utilized for safety;Verbal Cues;Nonverbal cues (demo/gestures);Minima l cues 05/04/2025 10:41 AM EDT Karlie Dotson Assistive Device Sliding board 05/07/2025 11:4 6 AM EDT Tonia Nguyen * Interventions Question Answer Date of Assessment Author Transfer Interventions Transfers perform ed x 4 each from EOB. Pt able [...] to improve dizziness recovery. Increased time required between attempts for recovery 2/2 to fatigue/dizziness. Verbal cues provided for hand/foot placement, sequencing, weight shifting, appropriate use of DEFENSE ANALYST, and maintaining NWB on RLE. Tactile cues provided to assist in sequencing and weight shifting. 05/17/2025 11:56 AM Corey Burr IV * Interventions Question Answer Date of Assessment Author Balance Interventions Pt tolerated sitti ng upright at EOB for ~10 minutes with no LOB episodes. 04/28/2025 9:03 AM EDT Maribel Perea * Postural Appearance Question Answer Date of Assessment Author Posture WFL;Forward head 05/17/2025 11:56 AM EST Lizarraga, Corey IV * Interventions Question Answer Date of Assessment Author Self-Care Interventions OT provided extr a time and min VC's for patient to complete ADL tasks. Pt positioned upright at edge of bed in prep for seated and standing level ADL tasks, dizziness reported initially with BP captured at 144/98 (110), pt maintaining sitting balance with SBA and reported dizziness subsided after two minutes. Pt then completed x3 reps of sit to stand to isabella RW with max A x2 persons each time, able to maintain NWB in RLE each time without cueing, pt supporting self with UE's on walker. Technique improving with each repetition and rest breaks encouraged between trials for improved activity tolerance. Pt encouraged to transition to sitting EOB for meals to increase overall ADL independence. 05/12/2025 12:31 PM Beatriz Starks * UE Dressing Question Answer Date of Assessment Author UE Dressing Interventions Pt doffed hosp ital gown and donned clean gown with s/u 05/17/2025 11:58 AM Joceline Guzman ULouise Dressing Where Assessed Edge of bed 05/17/2025 11: 58 AM Joceline Guzman ULouise Dressing Level of Assistance Setup;SBA 05/17/2025 11:58 AM Joceline Gzuman * Lower Extremity Dressing Question Answer Date of Assessment Author LE Dressing Interventions Pt required De p A to don L non skid sock sitting EOB. 05/17/2025 11:58 AM Joceline Guzman LE Dressing Where Assessed Edge of bed 05/17 11:58 AM Joceline Guzman Sock Level of Assistance Dependent 025 11:58 AM Joceline Guzman Shoe Level of Assistance Dependent 025 10:41 AM Karlie Tijerina * Toileting Question Answer Date of Assessment Author Toileting Interventions Pt with small incontinent BM, required dep A for hygiene to buttocks in stance at [facility] RW level with assistance from 2nd person needed for steadying throughout tasks 05/12/2025 12:31 PM Beatriz Starks Where Assessed Other (Comment) 05/12/2025 12:31 PM Beatriz Starks Toileting Level of Assistance Dependent 05/12/2025 12:31 PM Beatriz Starks * Self_Care Question Answer Date of Assessment Author Self_Care Interventions Pt deferred ADLs this date 05/09/2025 11:49 AM EDT Claudio Kim * Cognition Question Answer Date of Assessment Author Deficit Awareness Decreased awareness of deficits 05/17/2025 11:58 AM Joceline Guzman Mood/Behavior Alert 05/17/2025 11:58 AM Joceline Guzman Overall Cognitive Status WFL 025 11:58 AM Joceline Guzman Arousal/Alertness Appropriate response s to stimuli 05/17/2025 11:58 AM Joceline Guzman Attention Span Attends with cues to redirect 05/17/2025 11:58 AM Joceline Guzman Safety Judgment Decreased awareness of need for assistance 05/17/2025 11:58 AM Joceline Guzman Awareness of Errors Assistance required to identify errors made;Assistance required to correct errors made 05/17/2025 11:58 AM Joceline Guzman Method of Communication Verbal 05/17/20 11:58 AM Joceline Guzman Single Step Commands Consistently;100% o f the time 05/17/2025 11:58 AM Joceline Guzman Multi-Step Commands Consistently;100% of the time 05/17/2025 11:58 AM Joceline Guzman * General Question Answer Date of Assessment Author Next PT Re-Assessment Date [id number] 05/12/2025 12: 32 PM Isiah Lee Patient/Family Goals Statement Return home at [facility] 05/12/2025 12:32 PM Isiah Lee * Plan Question Answer Date of Assessment Author Predicted Duration of Therapy 2 weeks 05/12/2025 12:32 PM Isiah Lee Discharge Recommendation Acute rehab 12:32 PM Isiah Lee Equipment Recommended Defer to facility 05/12/20 12:32 PM Isiah Lee Planned PT Interventions Balance trainin g;Bed mobility training;Gait training;Transfer training;ROM;Strength ening;Functional Mobility 05/12/2025 12:32 PM Isiah Lee Therapy Frequency 2 - 5 times per week 12:32 PM Isiah Lee * PT Assessment Question Answer Date of Assessment Author Activity Limitations Inability to ambula te community distances;Inability to complete ADLs independently;Inability to ambulate independently;Inability to transfer independently;Inability to ambulate household distances 05/12/2025 12:32 PM EDT Isiah Mckeon Participation Restrictions Self-care;Home management;Community leisure 05/12/2025 12:32 PM EDT Isiah Mckeon History Profile 1 - 2 personal facto rs and/or comorbidities 04/28/2025 8:38 AM EDT Marible Perea Impairments Decreased endurance, ventilation, and/or gas exchange;Impaired gait dynamics/performance;Decr eased strength;Impaired locomotion;Pain;Impaired functional mobility/transfers;Impair ed balance 05/12/2025 12:32 PM EDT Isiah Mckeon Evaluation/Treatment Tolerance Patient limited by pain;Patient limited by fatigue 05/12/2025 12:32 PM EDT Isiah Mckeon Diagnosis Impaired functional mobility and decreased activity tolerance 05/12/2025 12:32 PM EDT Isiah Mckeon Clinical Presentation Evolving clinical presentation with changing characteristics 04/28/2025 8:38 AM Maribel Martinez Clinical Decision Making Moderate complexity 04/28/2025 8:38 AM EDMaribel Yanez Rehab Potential Good, to achieve sta nasra therapy goals 05/12/2025 12:32 PM Isiah Lee Activity Tolerance Tolerates 30 min act ivity with multiple rests 05/12/2025 12:32 PM EDT Isiah Mckeon * Ambulation Question Answer Date of Assessment Author Ambulation Comments Unable to side step or progress to forward hop step at bariatric RW level due to inability to maintain prolonged standing position while maintaining NWB in RLE. 05/17/2025 11:56 AM Corey Burr IV * JACKELINE HLM Score Question Answer Date of Assessment Author HLM Daily Mobility Goal 2 04/30/2025 10: 00 PM EDT Rodrick Oconnell, RN * Plan of Care Reviewed With Answer Date of Assessment Author patient 05/17/2025 9:53 PM Gualberto Atwood, LOLA * Behavior Risk Screen Tool Question Answer Date of Assessment Author Is there concern that the pa tient will try to elope? No 05/04/2025 8:00 AM EDT Petros Smith, RN * Pressure Injury Prevention (PIP) Interventions Question Answer Date of Assessment Author Pressure Reducing Devices Pillow 05/18/2025 8:00 AM Kylee Ravi RN Preventative Foam Dressing Location Sacrum 05/14/2025 8:45 PM EST Florina Hinojosa RN Bed Type Bariatric Dolphin 05/18/2025 8:00 AM Kylee Ravi RN * Vital Signs Question Answer Date of Assessment Author BP 150/94 05/18/2025 7:34 AM EST Inter face, Doc Flowsheet In Temp 97.7 05/18/2025 7:34 AM EST Inter face, Doc Flowsheet In Pulse 58 05/18/2025 7:34 AM EST Inter face, Doc Flowsheet In Resp 15 05/18/2025 7:34 AM EST Inter face, Doc Flowsheet In Heart Rate Source Monitor 05/18/2025 7:34 AM Kylee Ravi RN MAP (mmHg) 113 05/18/2025 7:34 AM EST Inter face, Doc Flowsheet In * Oxygen Therapy Question Answer Date of Assessment Author SpO2 97 05/18/2025 7:34 AM EST Inter face, Doc Flowsheet In O2 Flow Rate (L/min) 2 05/18/2025 3:53 AM Ivan Girard RN Oximetry Probe Site Changed No 05/01/2025 9: 40 AM EDT Jada Ring RN Patient Activity During SpO2 Measurement At rest 05/16/2025 7:48 PM Ivan Atwood RN Oximetry Probe Site Location Left Digit 04/28/2025 2:52 PM EDT Ailyn Finch CNA * Height and Weight Question Answer Date of Assessment Author Weight 8800.76 05/18/2025 5:06 AM Ivan Atwood RN * Attendant Honor Bar Question Answer Date of Assessment Author Telemetry Box Number PACU BAY #[id number] 05/01/2025 9:10 AM E Jada Jo RN * Gastrointestinal Question Answer Date of Assessment Author Passing Flatus Yes 05/15/2025 4:20 AM Florina Morris RN Abdominal Tenderness Soft;Nontender 05/15/2025 4:20 AM EST Florina Hinojosa RN Bowel Sounds (All Quadrants) Active 05/18/2025 4 :00 AM EST Ivan Slaughter RN Gastrointestinal (WDL) WDL 05/18/2025 8:00 AM EST Kylee Gonzalez RN Abdomen Inspection Rounded;Soft 05/18/2025 8:00 AM Kylee Ravi RN GI Symptoms Constipation 05/11/2025 4:30 PM EDT Tamar Leary RN * Peripheral Vascular Question Answer Date of Assessment Author Peripheral Vascular (WDL) X 05/18/2025 8:00 AM Kylee Ravi RN Generalized Edema Non-pitting 05/18/2025 8:00 AM Kylee Ravi RN Perineal Edema Non-pitting 05/18/2025 8:00 AM Kylee Leach RN RLE Edema Non-pitting 05/18/2025 8:00 AM Kylee Kendrick RN LLE Edema Non-pitting 05/18/2025 8:00 AM EST Kylee Miranda RN Capillary Refill Less than/equal to 2 seconds (All extremities) 05/18/2025 8:00 AM Kylee Ravi RN Pulses L pedal;R pedal;R posterior tibial;L posterior tibial;R radial;L radial 05/18/2025 8:00 AM Kylee Ravi RN Cyanosis None 05/12/2025 8:00 AM EDT Kaylin Keita RN Edema Generalized;Right lower extremity;Left lower extremity 05/18/2025 8:00 AM Kylee Ravi RN PVS Additional Assessments RLE 05/15/2025 4:00 PM EST Nelia Garcia RN * RUE Neurovascular Assessment Question Answer Date of Assessment Author RUE Sensation Full sensation 05/11/2025 4:30 PM EDT Tamar Ceja, RN RUE Capillary Refill Less than/equal to 2 seconds 05/18/2025 8:00 AM Kylee Ravi RN R Radial Pulse +2 05/18/2025 8:00 AM EST Kylee Perry RN * LUE Neurovascular Assessment Question Answer Date of Assessment Author LUE Sensation Full sensation 05/11/2025 4:30 PM EDT Fa Tamar umanzor, RN LUE Capillary Refill Less than/equal to 2 seconds 05/18/2025 8:00 AM Kylee Ravi RN L Radial Pulse +2 05/18/2025 8:00 AM Kylee Leach RN * RLE Neurovascular Assessment Question Answer Date of Assessment Author RLE Sensation Numbness 05/11/2025 4:30 PM EDT Tamar Haji RN RLE Capillary Refill Less than/equal to 2 seconds 05/18/2025 8:00 AM EST Kylee Gonzalez RN RLE Color Other (Comment) 05/18/2025 8:00 AM EST Kylee Holm RN RLE Temperature/Moisture Warm;Dry 05/18/2025 8:00 AM Kylee Ravi RN R Posterior Tibial Pulse +1 05/18/2025 8:00 AM Kylee Ravi RN R Pedal Pulse +1 05/18/2025 8:00 AM Kylee Wade RN RLE Movement Present 05/18/2025 8:00 AM Kylee Kendrick RN * LLLouise Neurovascular Assessment Question Answer Date of Assessment Author LLE Sensation Numbness 05/11/2025 4:30 PM EDT Tamar Haji RN LLE Capillary Refill Less than/equal to 2 seconds 05/18/2025 8:00 AM Kylee Ravi RN L Posterior Tibial Pulse +1 05/18/2025 8:00 AM Kylee Ravi RN L Pedal Pulse +1 05/18/2025 8:00 AM Kylee Wade RN * Musculoskeletal Question Answer Date of Assessment Author RUE Full movement 05/18/2025 8:00 AM Kylee Wade RN RLE Swelling;Weakness;Singletary r yasemin;Limited movement 05/18/2025 8:00 AM Kylee Ravi RN LUE Full movement 05/18/2025 8:00 AM Kylee Wade RN LLE Swelling;Weakness;Fu l l movement 05/18/2025 8:00 AM Kylee Ravi RN Musculoskeletal (WDL) X 05/18/2025 8:00 AM Kylee Ravi RN * Urine Assessment Question Answer Date of Assessment Author Urine Color Yellow/straw 05/18/2025 8:00 AM Kylee Kendrick RN Urine Appearance Clear 05/18/2025 8:00 AM Kylee Amador RN Urine Odor No odor 05/18/2025 8:00 AM Kylee Kendrick RN Urinary Incontinence No 05/18/2025 8:00 AM Kylee Rg RN * Genitalia Question Answer Date of Assessment Author Male Genitalia Swelling 05/18/2025 8:00 AM Kylee Leach RN * Psychosocial Question Answer Date of Assessment Author Psychological state Calm;Compliant;Coope ra tive;Brightens with approach 05/18/2025 8:00 AM Kylee Ravi RN Needs Expressed Physical 05/18/2025 8:00 AM Kylee Ravi RN Psychosocial (WDL) WDL 05/18/2025 8: 00 AM Kylee Ravi RN Psychosocial Additional Assessments No 05/18/2025 8:00 AM Kylee Ravi RN Ability to Express Feelings Able to express 05/18/2025 8:00 AM Kylee Ravi RN Ability to Express Needs Able to express 025 8:00 AM Kylee Ravi RN Ability to Express Thoughts Able to express 05/18/2025 8:00 AM Kylee Ravi RN Ability to Understand Others Understands 05/18/2025 8:00 AM Kylee Ravi RN * Unmeasured Output Question Answer Date of Assessment Author Unmeasured Stool Occurrence (hourly total) 1 05/16/2025 11:00 AM Char Real CNA * Output (mL) Question Answer Date of Assessment Author Stool Color Brown 05/16/2025 11:00 AM Char Mario CNA Stool Amount Large 05/16/2025 11:00 AM EST Char May CNA Stool Appearance Formed 05/16/2025 11:00 AM EST Char Hinojosa CNA Bowel Incontinence No 05/16/2025 11:00 AM Char Abdalla CNA Desha Stool Assessment Sausage 05/16/2025 11:00 AM Char Real CNA * Craven Fall Risk Question Answer Date of Assessment Author History of Falling, Immediat e or Within 3 Months 0 05/18/2025 8:00 AM Kylee Ravi RN Secondary Diagnosis 15 05/18/2025 8:00 AM Kylee Reynaga RN Ambulatory Aid 15 05/18/2025 8:00 AM Kylee Leach RN Intravenous Therapy/Heparin Lock 0 05/18/20 25 8:00 AM Kylee Ravi RN Gait/Transferring 10 05/18/2025 8:00 AM Kylee Ravi RN Mental Status 0 05/18/2025 8:00 AM Kylee Wade RN Craven Fall Risk Score 40 05/18/2025 8:00 AM Kylee Ravi RN * Miguel Ángel Scale Question Answer Date of Assessment Author Sensory Perceptions 3 05/18/2025 8:00 AM Kylee Reynaga RN Moisture 3 05/18/2025 8:00 AM Kylee Kendrick RN Activity 3 05/18/2025 8:00 AM Kylee Kendrick RN Mobility 3 05/18/2025 8:00 AM Kylee Kendrick RN Nutrition 3 05/18/2025 8:00 AM Kylee Kendrick RN Friction and Shear 2 05/18/2025 8:00 AM Kylee Ravi RN Miguel Ángel Scale Score 17 05/18/2025 8:00 AM Kylee Ravi RN * BSA (Calculated - sq m) Answer Date of Assessment Author 3.56 05/18/2025 5:06 AM Gualberto Atwood RN * BMI (Calculated) Answer Date of Assessment Author 74.58 05/18/2025 5:06 AM Gualberto Atwood RN * Cardiac Question Answer Date of Assessment Author Telemetry Strip Reviewed Yes, I have reviewed and acknowledged the strip measurements as interpreted by the CPT's 05/12/2025 4:00 PM EDT Kaylin Robb RN Cardiac Rhythm NSR 05/13/2025 3:58 AM EDT Haritha Vasquez RN Heart Block Type Bundle branch block 05/13/2025 3:58 A M EDT Haritha Lam test and turn up technicianElectric Car Operator On No 05/18/2025 8:00 AM Kylee Rg RN Cardiac (WDL) WDL 05/18/2025 8:00 AM Kylee Wade RN Pacemaker No 05/18/2025 8:00 AM Kylee Kendrick RN Cardiac Regularity Regular 05/18/2025 4:00 AM Ivan Atwood RN Heart Sounds S1, S2 05/18/2025 8:00 AM Kylee Kendrick RN Telemetry/Attendant Honor Bar No 05/18/2025 8:00 AM Kylee Ravi RN Jugular Venous Distention (JVD) No 05/15/2025 4:20 AM Florina Real RN Cardiac Symptoms None 05/18/2025 8:00 AM Kylee Amador RN * Respiratory Question Answer Date of Assessment Author Bilateral Breath Sounds Clear;Diminished 05/18/2025 8:00 AM Kylee Ravi RN R Breath Sounds Diminished 05/11/2025 4:30 PM EDT Tamar Lynn RN L Breath Sounds Diminished 05/11/2025 4:30 PM EDT Tamar Lynn RN Respiratory Pattern Regular 05/18/2025 4 :00 AM Ivan Atwood RN Chest Assessment Chest expansion symmetrical 05/18/2025 4:00 AM Ivan Atwood RN Cough Non-productive 05/11/2025 4:30 PM EDT Tamar Lynn RN Sputum Amount Moderate 05/07/2025 4:00 PM EDT Iveth Boss RN Sputum Color Unable to assess 05/11/2025 4:30 PM EDT Tamar Lynn RN Sputum Consistency Thin 05/07/2025 4: 00 PM EDT Iveth Boss RN Respiratory (WDL) X 05/18/2025 8:0 0 AM EST Kylee Gonzalez RN Respiratory Additional Assessments Yes 05/04/2025 4:04 PM EDT Rocío Crandall RN Respiratory Effort Unlabored 05/17/2025 8: 00 PM Ivan Atwood RN Respiratory Depth/Rhythm Regular 05/18/2025 4:00 AM Ivan Atwood RN Dyspnea Occurrence With exertion 05/14/2025 8: 45 PM EST Florina Hinojosa RN * RLE ROM Assessment Question Answer Date of Assessment Author RLE Assessment [facility] 05/12/2025 12:32 PM EDT Isiah Michel * LLE ROM Assessment Question Answer Date of Assessment Author LLE Assessment [facility] 05/12/2025 12:32 PM EDT Isiah Michel * Vitals Question Answer Date of Assessment Author Temp src Oral 05/18/2025 7:34 AM Chra Tyler CNA BP Location Right arm 05/18/2025 7:34 AM Char Tyler CNA BP Method Automatic 05/18/2025 7:34 AM Char Tyler CNA Pulse Oximetry Type Intermittent 05/10/2025 3:59 AM ED T Maribell Saeed Oxygen Therapy Supplemental oxygen 05/18/2025 7:34 AM Char Real CNA O2 Delivery Method Nasal cannula 05/18/2025 7:34 AM ES Char Kirk CNA Patient Position Lying 05/18/2025 7:34 AM Char Johnson CNA * Point of Care Tests Question Answer Date of Assessment Author Provider Role Attending physician 05/13/2025 4:57 AM Haritha Dozier, RN Provider Name Magali Escalante DO 05/13/2025 4:57 AM Haritha Roper, RN Method of Communication Secure message 05/13/2025 4:57 AM EDT Haritha Lam RN Reason for Communication Evaluate 05/13/2025 4:57 AM EDT Haritha Lam, RN Response No new orders 05/13/2025 4:57 AM EDT Haritha Card, RN * Vision - Basic Assessment Question Answer Date of Assessment Author Baseline Vision Glasses reading 05/12/2025 12:32 PM ED T Isiah Mckeon Current Vision Intact 05/12/2025 12:32 PM EDT Jose salgadoAldairw Tracking Intact 05/12/2025 12:14 PM EDT Beatriz Carroll Vision Comments Pt denies any new ch anges in vision 05/12/2025 12:32 PM EDT Isiah Mckeon * Patient Information Question Answer Date of Assessment Author Support System Immediate family 04/28/2025 1:00 PM EDT Mayra Apodaca RN * Activities of Daily Living Question Answer Date of Assessment Author Living Arrangements Spouse/Significant other;Children 04/28/2025 1:00 PM EDT Mayra Apodaca RN Type of Residence Private residence;Single Level 04/28/2025 1:00 PM EDT Mayra Apodaca RN * Income Information Question Answer Date of Assessment Author Income Source Disabled 04/28/2025 1:00 PM EDT Mayra Fink RN Income/Expense Information Expenses exceed income 04/28/2025 1:00 PM EDT Mayra Apodaca RN Current Resources Utilized None 04/28/2025 1:00 PM EDT Mayra Apodaca R N * Advance Directives (For Healthcare) Question Answer Date of Assessment Author Advance Directive Not applicable 05/04/2025 8:00 AM ED T Petros Smith RN Pre-existing DNR/DNI Order No 05/04/2025 8:0 0 AM EDT Petros Smith RN Information Provided on Healthcare Directives No 05/04/2025 8:00 AM EDT Petros Smith RN Patient Requests Assistance No 05/04/2025 8:00 AM EDT Petros Smith RN Have you reviewed your Advance Directive and is it valid for this stay? No 05/04/2025 8:00 AM EDT Domenico Smith RN * Nutrition Screen Question Answer Date of Assessment Author Difficulty Chewing or Swallowing No 05/04/2025 8:00 AM EDT Petros Smith RN Burn, Pressure Injury, or Non-Healing Wound Yes (Comment) 05/04/2025 8:00 AM EDT Petros Smith RN Home Tube Feeding or Total Parenteral Nutrition (TPN) No 05/04/2025 8:00 AM EDT Bon Smith RN Food allergy, Pentecostalism, or Cultural nutrition needs No 05/04/2025 8:[address]T Dre Smith rd RN * Trauma/Abuse Assessment Question Answer Date of Assessment Author Physical Abuse Denies 05/04/2025 8:00 AM EDT Petros Tristan RN Verbal Abuse Denies 05/04/2025 8:00 AM EDT Petros Campa RN * Values/Beliefs Question Answer Date of Assessment Author Cultural Requests During Hospitalization na 05/04/2025 8:00 AM EDT Petros Smith RN Spiritual Requests During Hospitalization na 05/04/2025 8:00 AM EDT Petros Smith RN Unable to assess No 05/04/2025 8:00 AM EDT Petros Kerr RN * Genitourinary Question Answer Date of Assessment Author Genitourinary (WDL) X 05/18/2025 8:00 AM Kylee Reynaga RN Genitourinary Symptoms Rios catheter 05/18/2025 8:00 AM Kylee Ravi RN * Neurological Question Answer Date of Assessment Author Level of Consciousness Alert 8:00 AM Kylee Ravi RN Orientation Level Oriented X4 05/18/2025 8:0 0 AM Kylee Ravi RN Cognition Follows commands 05/14/2025 4:00 PM Kaylin Espinosa RN Speech Clear 05/14/2025 4:00 PM Kaylin Espinosa RN L Pupil Reaction Brisk 05/11/2025 4:30 PM EDT Tamar Lynn RN L Pupil Size (mm) 3 05/11/2025 4:3 0 PM EDT Tamar Lynn RN R Pupil Reaction Brisk 05/11/2025 4:30 PM LOGANT Farnum, Tamar R, RN R Pupil Size (mm) 3 05/11/2025 4:3 0 PM EDT Tamar Lynn, RN LUE Motor Response Responds to commands 05/11/20 4:30 PM EDT Tamar Lynn, RN LLE Motor Response Responds to commands 05/11/20 4:30 PM EDT Tamar Lynn, RN RUE Motor Response Responds to commands 05/11/20 4:30 PM EDT Tamar Lynn, RN RLE Motor Response Responds to commands 05/11/20 4:30 PM EDT Tamar Lynn RN Neuro (WDL) WDL 05/18/2025 8:00 AM EST Kylee Gonzalez, RN Swallow Able to swallow solids and liquids without difficulty 05/18/2025 4:00 AM EST Ivan Slaughter, RN R Hand Grasp Strong 05/11/2025 4:30 PM EDT Tamar Lynn, RN L Hand Grasp Strong 05/11/2025 4:30 PM EDT Tamar Lynn, RN R Foot Dorsiflexion Strong 05/11/2025 4 :30 PM EDT Tamar Lynn R, RN L Foot Dorsiflexion Strong 05/11/2025 4 :30 PM EDT Tamar Lynn R, RN R Foot Plantar Flexion Strong 4:30 PM EDT Tamar Lynn R, RN L Foot Plantar Flexion Strong 4:30 PM EDT Tamar Lynn, RN R Pupil Shape Round 05/11/2025 4:30 PM EDT Tamar Lynn, RN L Pupil Shape Round 05/11/2025 4:30 PM EDT Tamar Lynn RN Neuro Symptoms None 05/11/2025 4:30 PM EDT Tamar Lynn, RN RUE Motor Strength Normal power 05/11/2025 4: 30 PM EDT Tamar Lynn, RN LUE Motor Strength Normal power 05/11/2025 4: 30 PM EDT Tamar Lynn, RN RLE Motor Strength Can overcome resistance 05/11/2025 4:30 PM EDT Tamar Lynn RN LLE Motor Strength Can overcome resistance 05/11/2025 4:30 PM LOGANT Tamar Lynn RN Pupil Assessment Yes 05/11/2025 4:30 PM EDT Tamar Lynn RN Hand Grasp/Motor Function/Sensation Assessment Grasp;Motor response;Sensation;Mo tor strength;Dorsiflexion ;Plantar flexion 05/11/2025 4:30 PM EDT Tamar Lynn RN * Height and Weight Question Answer Date of Assessment Author Height 72 04/27/2025 10:46 PM EDT Stella Mauro RN * Prior Function Question Answer Date of Assessment Author Mobility Greenlee Independent gait w ith device 05/12/2025 12:32 PM EDT Isiah Mckeon ADL Performance Needs assistance 05/12/2025 12:32 PM E Isiah Ruelas Receives Help From Spouse 05/12/2025 12:32 PM ED T Isiah Mckeon Bathing Needs assist 05/12/2025 12:32 PM EDT Isiah Dubois Upper Body Dressing Needs assist 05/12/2025 12:32 PM E Isiah Ruelas Lower Body Dressing Needs assist 05/12/2025 12:32 PM E Isiah Ruelas Grooming Needs assist 05/12/2025 12:32 PM EDT Isiah Dubois Toileting Independent 05/12/2025 12:32 PM EDT Isiah Dubois Eating Independent 05/12/2025 12:32 PM EDT Isiah Dubois Home Management Skills Needs assist 05/12/2025 12:32 P M Isiah Lee * RUE ROM Assessment Question Answer Date of Assessment Author RULouise Assessment [facility] 05/12/2025 12:32 PM EDT Isiah Michel * LUE ROM Assessment Question Answer Date of Assessment Author LUE Assessment [facility] 05/12/2025 12:32 PM EDT Isiah Michel * Safe Environment Question Answer Date of Assessment Author 37-Pin Connection [Bed and Wall] Yes 05/18/2025 8:00 AM Kylee Ravi RN Arm Bands On ID 05/18/2025 8:00 AM Kylee Kendrick RN Side Rails/Bed Safety 2/4 05/18/2025 8:00 AM Kylee Ravi RN NonSkid Footwear On;Patient in bed 05/18/2025 8:00 AM Kylee Ravi RN The Patient's Environment is Safe Yes 05/18/2025 8:00 AM Kylee Ravi RN Head of Bed Angle 45 05/18/2025 8:00 AM Kylee Ravi RN Bed Foot Left Rail Up State No 05/18/2025 8:00 AM Kylee Ravi RN Bed Head Right Rail Up State Yes 05/18/2025 8:00 AM Kylee Ravi RN Bed Head Left Rail Up State Yes 05/18/2025 8:00 AM Kylee Ravi RN Bed Foot Right Rail Up State No 05/18/2025 8:00 AM Kylee Ravi RN Bed Exit System Activate Status No 05/18/2025 8:00 AM Kylee Ravi RN Bed Brake State Yes 05/18/2025 8:00 AM Kylee Hunter RN Bed Low Height State Yes 05/18/2025 8:00 AM Kylee Rg RN Chair Exit System Activate Status No 05/18/2025 8:00 AM Kylee Ravi RN * Fall Risk Interventions Question Answer Date of Assessment Author Safety Promotion/Fall Prevention safety round/check completed;room organization consistent;activity supervised 05/18/2025 8:00 AM Kylee Ravi RN Enhanced Safety Measures monitored by video;room near unit station 05/18/2025 4:00 AM Ivan Atwood RN Toilet Every 2 Hours-In Advance of Need Yes 05/17/2025 8:00 PM Ivan Atwood RN Hourly Visual Checks Awake;Quiet 05/18/2025 8:00 AM Kylee Rg RN Room Door Open Deferred to promote rest 05/17/2025 8:0 0 PM Ivan Atwood RN Gait Belt Used For Transfers Not applicable 05/17/2025 8:00 PM Ivan Atwood RN Fall Bundle Components Call light within reach;Personal belongings within reach;Overbed table within reach;Bed in lowest position;Bed wheels locked;Non-skid footwear on if up in chair or ambulating;Staff to remain with patient during toileting 05/18/2025 8:00 AM Kylee Ravi RN * Mobility Question Answer Date of Assessment Author Range of Motion active ROM (range of motion) encouraged 05/17/2025 8:00 PM Ivan Atwood RN Activity Management activity encouraged;activity adjusted per tolerance;previous patient education reinforced 05/18/2025 8:00 AM Kylee Ravi RN Assistive Device Utilized lift device 05/17/2025 8:00 PM Ivan Atwood RN Body Position turned;right;left;we igh t shifting;education provided 05/18/2025 9:00 AM Kylee Ravi RN VTE Prevention/Management medication;SCDs (sequential compression devices) off 05/18/2025 8:00 AM Kylee Ravi RN Head of Bed (HOB) Positioning HOB elevated 05/18/2025 9:00 AM Kylee Ravi RN Repositioned Prompted independent patient to reposition 05/18/2025 4:00 AM Ivan Atwood RN Head of Bed Elevated Self regulated 05/18/2025 9:00 AM Kylee Ravi RN Heels/Feet Heels elevated off bed 8:00 PM Iavn Atwood RN Positioning Frequency Able to turn self 05/18/20 25 9:00 AM Kylee Ravi RN * Hygiene Question Answer Date of Assessment Author Perineal Care perineum cleansed 05/16/2025 11:00 AM Char Abdalla CNA Bathing/Skin Care bath, complete 05/16/2025 11:00 AM Char Dumas CNA Oral Care mouth wash rinse 05/18/2025 8:00 AM Kylee Amador RN Oral Care (Yes/No) Yes 05/18/2025 8:00 AM EST Kylee Gonzalez RN Rios Care Castile Wipes Used Yes 05/18/2025 5:00 AM EST Ron Lal CHG (Chlorhexidine Gluconate) Hygiene Wipes 05/18/2025 12:00 AM EST Ivan Slaughter RN CHClaire Treatment Refused-Action Taken Education provided 04/29/2025 6:00 AM Marian Saldivar RN * Precautions Question Answer Date of Assessment Author Isolation Precautions precautions maintained 12/2024 8:00 AM Kylee Ravi RN Precautions Environmental surveillance 05/18/2025 8:00 AM Kylee Ravi RN * Family/Significant Other Communication Question Answer Date of Assessment Author Family/Significant Other Update Visiting 8:00 AM Kaylin Espinosa RN * Telemetry Details Question Answer Date of Assessment Author Telemetry Audible Yes 05/18/2025 8:00 AM Kylee Ravi RN Telemetry Alarms Set Yes 05/18/2025 8:00 AM Kylee Rg RN * Comfort and Environment Interventions Question Answer Date of Assessment Author Heat Therapy Applied (Comment) 05/01/2025 9:10 AM Jada Christensen RN Comfort Full linen change 05/16/2025 11: 00 AM EST Char Hinojosa CNA Additional Comfort/Environmental Interventions Heat therapy 05/01/2025 9:10 AM Jada Christensen RN * Miscellaneous Devices Question Answer Date of Assessment Author Equipment trapeze/overhead bed frame 05/14/2025 8:0 0 AM Kaylin Espinosa RN * Safety Equipment at Bedside Question Answer Date of Assessment Author Standard Bedside Safety Ambu bag/mask at bedside;Oxygen available and working;Suction available, setup and working 05/18/2025 8:00 AM Kylee Ravi RN Additional Bedside Safety Bed in locked and low position;Clutter free environment 05/18/2025 8:00 AM Kylee Ravi RN * ADL Screening Question Answer Date of Assessment Author Patient's Vision Adequate to Safely Complete Daily Activities Yes 05/04/2025 8:00 AM EDPetros Pillai RN Patient's Judgment Adequate to Safely Complete Daily Activities Yes 05/04/2025 8:00 AM EDT Bjiu Smith RN Patient's Memory Adequate to Safely Complete Daily Activities Yes 05/04/2025 8:00 AM EDPetros Pillai RN Patient Able to Express Needs/Desires Yes 05/04/2025 8:00 AM EDPetros Pillai RN Dressing Independent 05/04/2025 8:00 AM Petros Gordillo RN Grooming Independent 05/04/2025 8:00 AM Petros Gordillo RN Feeding Independent 05/04/2025 8:00 AM Petros Gordillo RN Bathing Needs assistance 05/04/2025 8:00 AM LOGANT Petros Kerr RN Toileting Needs assistance 05/04/2025 8:00 AM EDT Petros Kerr RN In/Out Bed Dependent 05/04/2025 8:00 AM Petros Gordillo RN Walks in Home Dependent 05/04/2025 8:00 AM Petros Echeverria RN Weakness of Legs None 05/04/2025 8:00 AM Petros Bee RN Weakness of Arms/Hands None 05/04/2025 8:00 AM Petros Valenzuela RN Hearing - Right Ear Functional 05/04/2025 8:00 AM ED T Petros Smith RN Hearing - Left Ear Functional 05/04/2025 8:00 AM EDPetros Pillai RN * Consults Question Answer Date of Assessment Author Integrative Medicine Consult Needed No 05/04/2025 8:00 AM Petros Valenzuela RN Pastoral Care Consult Needed No 05/04/2025 8 :00 AM Petros Valenzuela RN Social Services Consult Needed No 05/04/2025 8:00 AM Petros Valenzuela RN * Therapy Consults Question Answer Date of Assessment Author PT Evaluation Needed 2 05/04/2025 8:00 AM E Petros Souza RN OT Evaluation Needed 2 05/04/2025 8:00 AM E Petros Souza, LOLA PROGRAM MANAGEMENT MANAGER Evaluation Needed 2 05/04/2025 8:00 AM EDT Petros Smith, RN * Assistive Devices Question Answer Date of Assessment Author Assistive Devices Eyeglasses;Cane 04/29/2025 6:48 PM E Chuyita Johnson, LOLA * PAINAD (Pain Assessment in Advanced Dementia) Question Answer Date of Assessment Author Pain Management Interventions medication (see MAR);rest;relaxation techniques promoted;quiet environment facilitated 05/18/2025 9:06 AM Kylee Ravi RN * Provider Notification Question Answer Date of Assessment Author Shift Event Other (Comment) 05/13/2025 4:57 AM EDT To Haritha thacker RN Notification Time [id number] 05/13/2025 4:57 AM EDT Haritha Lam RN * Alarm Limits Question Answer Date of Assessment Author HR Alarm Limit Low 50 05/03/2025 8:00 AM EDKylee Fang RN HR Alarm Limit High 120 05/03/2025 8:00 AM ED Kylee Fang RN RR Alarm Limit Low 8 05/01/2025 9:10 AM EDT Jada Ring RN RR Alarm Limit High 20 05/01/2025 9:10 AM ED Jada Contreras RN SpO2 Alarm Limit Low 92 05/03/2025 8:00 AM E Kylee Rodríguez RN SpO2 Alarm Limit High 100 05/03/2025 8:00 AM EDT Kylee Gonzalez RN BP Mean Alarm Limit Low 60 05/01/2025 9:10 A M EDT Jada Ring RN * End of Shift Review Question Answer Date of Assessment Author Shift Review Complete Yes 05/17/2025 8:00 AM Deepthi Galeano RN Shift Report Received From Reno Slaughter RN 05/17/2025 8:0 0 AM Deepthi Galeano RN Shift Report Given To Monae Herman RN 05/17/2025 8:00 AM Deepthi Galeano, LOLA * Hourly Rounding Question Answer Date of Assessment Author Hourly Rounding Complete Per Guideline Yes 05/18/2025 11:00 AM Kylee Ravi RN * Patient Violence Risk Assessment Question Answer Date of Assessment Author History of Violence: In the past 12 hours has the PATIENT exhibited any of the following? None 05/18/2025 8:00 AM Kylee Ravi RN Potential for Violence: In the past 12 hours has the PATIENT exhibited any of the following? None 05/18/2025 8:00 AM Kylee Ravi RN Risk No identified risk 05/18/2025 8:00 AM Kylee Ravi RN History of Violence: In the past 12 hours has a PARTNER IN CARE of the patient exhibited any of the following? None 05/18/2025 8:00 AM Kylee Ravi RN * Mobility Question Answer Date of Assessment Author Ambulation Not performed;Unable to assess 05/14/2025 8:45 PM Florina Real RN * Restart Vitals Timer Answer Date of Assessment Author Yes 05/18/2025 7:34 AM Milton Welch Flowsheet In * STOP-Bang Questionnaire Question Answer Date of Assessment Author Do you snore loudly? 1 05/04/2025 8:00 AM Petros Abdul RN Do you often feel tired or fatigued after your sleep? 1 05/04/2025 8:00 AM EDT Bon Smith RN Has anyone ever observed you stop breathing in your sleep? 1 05/04/2025 8:[address] EDT Dre Smith rd, RN Do you have or are you being treated for high blood pressure? 1 04/29/2025 6:48 PM EDT Chuyita Abel RN Is BMI greater than 35 kg/m2? 1=Yes 05/04/2025 8:00 AM Petros Valenzuela RN Age older than 50 years old? 0=No 05/04/2025 8 :00 AM Petros Valenzuela RN Is your neck circumference g reater than 17 inches (Male) or 16 inches (Female)? 1 05/04/2025 8:00 AM Petros Valenzuela RN Gender - Male 1=Yes 05/04/2025 8:00 AM Petros Echeverria RN STOP-Bang Total Score 7 04/29/2025 6:48 PM EDT Chuyita Kim RN Recent BMI (Calculated) 74.7 05/04/2025 8:00 A M EDT Petros Smith, LOLA * Feeding Question Answer Date of Assessment Author Feeding Interventions To perform self-feeding tasks, pt is on regular, consistent CHO diet 05/12/2025 12:31 PM EDT Beatriz Gaspar Feeding Level of Assistance Independent 05/12/2025 12:31 PM EDT Beatriz Gaspar Feeding Where Assessed Bed level 12:31 PM EDT Beatriz Gaspar * Grooming Question Answer Date of Assessment Author Grooming Interventions To perform seated level grooming tasks at edge of bed 05/12/2025 12:31 PM EDT Beatriz Gaspar Grooming Where Assessed Edge of bed 05/12/20 12:31 PM EDT Beatriz Gaspar Grooming Level of Assistance Setup;SBA 05/12/2025 12:31 PM EDT Beatriz Gaspar * General Question Answer Date of Assessment Author Next OT Reassessment [id number] 05/12/2025 12:14 PM EDT Beatriz Gaspar Patient/Family Goals Statement Pt desires to improve overall independence and return home when able to. 05/12/2025 12:14 PM EDT Beatriz Gaspar * Home Living Question Answer Date of Assessment Author Home Type House 05/12/2025 12:32 PM EDT Isiah Dubois Number of Stairs 3 05/12/2025 12:32 PM EDT Isiah Mckeon Bathroom: Tub/Shower Tub/Shower combo;Tu b transfer bench 05/12/2025 12:32 PM EDT Isiah Mckeon Bathroom: Toilet Standard 05/12/2025 12:32 PM LOGANT Isiah Mckeon Bathroom: Accessibility Accessible 05/12/2025 12:32 PM EDT Isiah Mckeon Home Living Comments Pt reports he does not drive at baseline due poor sensation in feet. Pt has access to 24/7 assistance at discharge. 05/12/2025 12:32 PM EDT Isiah Mckoen Home Layout One level;Stairs to enter with rails 05/12/2025 12:32 PM EDT Isiah Mckeon Home Adaptive Equipment Rolling walker;Cane 05/12/2025 12:32 PM EDT Isiah Mckeon Lives With Spouse 05/12/2025 12:32 PM EDT Gualbreton Isiah dickens * Date of PT Session Question Answer Date of Assessment Author PT Initials [facility] 05/17/2025 11:56 AM Corey Garza IV Date of PT Session [id number] 05/17/2025 11:56 AM Corey Durham IV * Calculated C-SSRS Risk Score (Lifetime/Recent) Answer Date of Assessment Author No Risk Indicated 05/18/2025 8:00 AM Kylee Ravi RN * Shelley Coma Scale Question Answer Date of Assessment Author Best Eye Response Spontaneous 05/18/2025 8:00 AM Kylee Ravi RN Best Verbal Response Oriented 05/18/2025 8:00 AM Kylee Rg RN Best Motor Response Follows commands 05/18/2025 8:00 A M Kylee Ravi RN Shelley Coma Scale Score 15 05/18/2025 8:00 AM Kylee Ravi RN * ADL Question Answer Date of Assessment Author Toileting Modified assist 04/29/2025 6:00 AM EDT Marian Dobbs RN Elimination Management Other (Comment) 04/29/2025 6:00 AM EDT Marian Salmon RN Bed type Acute bed 04/29/2025 6:00 AM EDT Marian Dailey RN * Learning Assessment Question Answer Date of Assessment Author Education Level College 04/27/2025 9:42 PM EDT Stella Brooks RN Factors that Impact Ability to Learn None 04/27/2025 9:42 PM EDT Stella Daniels R N Cultural Considerations None 04/27/2025 9:42 P M EDT Stella Daniels RN Pentecostalism Considerations None 04/27/2025 9:42 PM EDT Stella Daniels RN * KINDER 1 Fall Risk Factor Assessment Question Answer Date of Assessment Author Presented to ED because of fall 0 04/27/2025 9:42 PM EDT Stella Daniels RN Age > 70 0 04/27/2025 9:42 PM EDT Stella Daniels RN Intoxicated with alcohol or substance confusion 0 04/27/2025 9:42 PM EDT Stella Daniels RN Ambulates or transfers with assistive devices or assist 1 04/27/2025 9:42 PM EDT Stella Daniels RN Unable to ambulate or transfer 0 04/27/2025 9:42 PM EDT Stella Daniels RN Nursing judgement 1 04/27/2025 9:4 2 PM EDT Stella Daniels RN KINDER 1 Fall Risk Score 2 025 9:42 PM EDT Stella Daniels RN High Fall Risk Interventions for Scores 1 and above Fall risk bundle components in place as defined below 04/27/2025 9:42 PM EDT Stella Daniels RN * Enhanced Neuro Checks Question Answer Date of Assessment Author Speech/Language Clear 05/15/2025 4:20 AM EST Florina Luna RN * Patient Belongings Placed in Locker Question Answer Date of Assessment Author Medical Equipment Cane 04/27/2025 10:46 PM EDT Stella Daniels RN * HEENT Question Answer Date of Assessment Author HEENT (WDL) WDL 04/29/2025 7:54 AM EDT Marian Dailey RN * Weight in (lb) to have BMI = 25 Answer Date of Assessment Author 183.9 04/27/2025 10:46 PM EDT Stella Daniels RN * Clinical Progression Answer Date of Assessment Author Gradually improving 05/17/2025 10:28 PM Ivan Atwood RN * Pain Assessment Question Answer Date of Assessment Author Pain Location Back 05/18/2025 9:06 AM Kylee Ravi RN Pain Orientation Lower 05/18/2025 9:06 AM Kylee Ravi RN Pain Radiating Towards down back of both legs 05/10/2025 8:14 AM Tamar Scruggs RN Pain Descriptors Discomfort 05/18/2025 9:06 AM Kylee Ravi RN Pain Onset Ongoing 05/18/2025 9:06 AM Kylee Ravi RN Pain Frequency Constant/continuous 05/18/2025 9 :06 AM Kylee Ravi RN Patient's Stated Pain Goal 3 05/18/2025 9:06 AM Kylee Ravi RN Patient is asleep Yes, assume pain is decreased 05/18/2025 9:06 AM Kylee Ravi RN Pain Type Chronic pain 05/18/2025 9:06 AM Kylee Ravi RN Pain Assessment 0-10 (Adult DVPRS/Peds 0-10) 05/18/2025 9:06 AM Kylee Ravi RN * Constipation Question Answer Date of Assessment Author Constipation Precipitating Factors Disease related;Medication (Iron supplements, opioids, antidepressants, etc.);Diet;Surgery 05/11/2025 4:30 PM Tamar Scruggs RN Problems with Passing Stool Incomplete passage of stool 05/11/2025 4:30 PM Tamar Scruggs RN Current Interventions Stool Softener 05/11/2025 4:30 PM Tamar Scruggs RN * Nutrition Question Answer Date of Assessment Author Diet Supplements Kyree Packet 05/14/2025 8:45 PM Florina Johnson RN Diet Type Regular;Consistent C arb 2 05/18/2025 8:00 AM Kylee Ravi RN Feeding Able to feed self 05/18/2025 8:00 AM Kylee Ravi RN Appetite Good 05/18/2025 8:00 AM Kylee Kendrick RN * Respiratory Interventions Question Answer Date of Assessment Author Respiratory Interventions Cough and deep breathing 05/18/2025 8:00 AM Kylee Ravi RN * Cough and Deep Breathe Question Answer Date of Assessment Author Cough And Deep Breathing done independently per patient 05/18/2025 8:00 AM Kylee Ravi RN * Incentive Spirometry Question Answer Date of Assessment Author Administration (IS) education provided 05/13/2025 8:00 PM Asiya Bajwa RN * Patient Belongings at Bedside Question Answer Date of Assessment Author Belongings at Bedside Retained by johann conklin and/or family/legal outside medical sales representative who assumes responsibility 05/04/2025 8:00 AM EDT Petros Smith RN * Patient Belongings Sent to Safe/Security Question Answer Date of Assessment Author Belongings Sent to Safe/Security None 05/04/20 8:00 AM EDT Petros Smith RN * Integumentary Question Answer Date of Assessment Author Skin Color Red 05/18/2025 8:00 AM Kylee Ravi RN Skin Condition/Temp Dry;Warm;Flaky 05/18/2025 8 :00 AM Kylee Ravi RN Skin Integrity Excoriation;Redness; Sc aling 05/18/2025 8:00 AM Kylee Ravi RN Skin Turgor Non-tenting 05/18/2025 8:00 AM Kylee Ravi RN 4 Eyes Skin Assessment Completed Yes 04/29/2025 7:00 PM EDT Chuyita Kim RN Manual Dual Sign Off 2nd LOLA Nixon RN 04/29/2025 7:00 PM EDT Chuyita Kim RN Skin Tone Light 05/05/2025 4:00 PM EDT Nitza Mishra RN Bruising Characteristics Generalized 025 8:00 AM Kylee Ravi RN Integumentary (WDL) X 05/18/2025 8 :00 AM Kylee Ravi RN Redness Location Groin, abdomen, coccyx 05/18/20 8:00 AM Kylee Ravi RN Redness Characteristics MASD 05/18/20 8:00 AM Klyee Ravi RN Scaling Location BLE 05/18/2025 8:00 AM Kylee Ravi RN Scaling Characteristics Dry, flakey, jairo 05/18 8:00 AM Kylee Ravi RN * Patient Belongings Sent Home Question Answer Date of Assessment Author Belongings Sent Home Clothing;Electronic devices 05/18/2025 11:00 AM Kylee Ravi RN Patient Electronics Cell phone 05/18/2025 11:00 AM Kylee Rg RN * Pain Score Answer Date of Assessment Author 7 05/18/2025 9:06 AM Stephie Ravi RN * Confusion Assessment Method (CAM) Question Answer Date of Assessment Author Acute Onset and Fluctuating Course (1A) No 05/18/2025 8:00 AM Kylee Ravi RN * Feature 3: Altered Level of Consciousness Answer Date of Assessment Author Negative 05/18/2025 8:00 AM Stephie Ravi RN * Sedation Scales Question Answer Date of Assessment Author RASS 0 05/18/2025 8:00 AM Kylee Kendrick RN * Stool Output/Assessment Question Answer Date of Assessment Author Most Recent [place] Date [id number] 05/18/2025 9:00 AM Kylee Reynaga RN * Patient Specific Goals Question Answer Date of Assessment Author Patient/Family-Specific Goals (Include Timeframe) Pt will remain free from falls/injury throughout this shift. 05/18/2025 9:00 AM Kylee Ravi RN Individualized Care Needs Safety 2024 9:00 AM Kylee Ravi RN Anxieties, Fears or Concerns None stated 05/18/2025 9:00 AM Kylee Ravi RN * Delirium Assessment Question Answer Date of Assessment Author Delirium Prevention & Management Yes 05/18/2025 8:00 AM Kylee Ravi RN Delirium Prevention & Management: Early Mobility Ambulate to extent of patient's ability;Educate patient and family about the benfits of early mobility in the hospital 05/18/2025 8:00 AM Kylee Ravi RN Delirium Prevention & Management: Cognitive Engagement Familiar objects from home provided;Emotional support provided;Optimize pain and other medication management;Reorienting communication;Environme ntal consistency promoted 05/18/2025 8:00 AM Kylee Ravi RN Delirium Prevention & Management: Optimize Sleep/Wake Cycles Calming techniques provided;Cluster care to decrease awakenings;Educate patient and family about optimizing sleep 05/18/2025 8:00 AM Kylee Ravi RN Delirium Scale Used Confusion Assessment Method 05/18/2025 8:00 AM Kylee Ravi RN * Assume Pain is Present Answer Date of Assessment Author No 05/10/2025 2:13 PM EDT Rodrick Lynn RN * Malnutrition Screening Tool (MST) Question Answer Date of Assessment Author Have you recently lost weigh t without trying? 0 05/04/2025 8:00 AM EDT Petros Smith RN Have you been eating poorly because of a decreased appetite? 0 05/04/2025 8:00 AM EDT Petros Estrada RN * Weight Loss Score Answer Date of Assessment Author 0 05/04/2025 8:00 AM EDT Carolynn Smith RN * Malnutrition Score Answer Date of Assessment Author 0 05/04/2025 8:00 AM EDT Carolynn Smith RN * Hyperglycemia Management Answer Date of Assessment Author blood glucose monitored 05/16/2025 7:49 PM Ivan Donald RN * Hypoglycemia Management Answer Date of Assessment Author blood glucose monitored 05/15/2025 11:48 AM Santy Antonio RN * Hourly Rounding Question Answer Date of Assessment Author Activity Assistance Held 04/29/2025 6:48 AM Britt Beckman RN Toileting Catheter 04/29/2025 6:48 AM Britt Barr, LOLA Call Light Call light present a nd within reach;Oriented to call light 04/29/2025 4:35 AM Britt Barr RN Rest/ Sleep Awake 04/29/2025 6:48 AM Britt Barr RN Rest/ Sleep Enhancement Care clustered t o minimize awakenings 04/29/2025 6:48 AM Britt Barr RN Completed Hourly Rounding Yes 04/29/2025 6:31 PM Marian Saldivar RN Plan of Care Reviewed With Patient;Family 04/29/2025 6:48 AM Britt Barr, RN * Standardized Assessments Question Answer Date of Assessment Author Standardized Assessments AMPA 6-Clicks Mobility Assessment 05/17/2025 11:56 AM Corey Burr IV * [facility] 6-Click Daily Activities Question Answer Date of Assessment Author Help from Other: Don/Doff Re gular Lower Body Clothings 2 04/28/2025 9:01 AM EDT Claudio Kim Help From Other: Bathing 2 04/28/2025 9:01 AM EDT Claudio Kim Help From Other: Toileting 2 04/28/2025 9:0 1 AM EDClaudio Best Help From Other: Don/Doff Up per Body Clothings 4 04/28/2025 9:01 AM EDT Claudio Kim Help From Other: Grooming 4 04/28/2025 9:01 AM EDT Claudio Kim Help From Other: Eating Meals 4 04/28/2025 9:01 AM EDT Claudio Kim [facility] 6 Click - Daily Activities Score 18 9:01 AM EDClaudio Best * Freddie Index Question Answer Date of Assessment Author Feeding 10 05/12/2025 12:31 PM EDT Melba manrique, Beatriz Bathing 0 05/12/2025 12:31 PM EDT Melba manrique, Beatriz Grooming 5 05/12/2025 12:31 PM EDT Melba manrique, Beatriz Dressing 5 05/12/2025 12:31 PM EDT Melba manrique, Beatriz Bowels 5 05/12/2025 12:31 PM EDT Melba burton, Beatriz Bladder 0 05/12/2025 12:31 PM EDT Melba manrique, Beatriz Toilet Use 0 05/12/2025 12:31 PM EDT Melba manrique, Beatriz Transfers (Bed to Chair and Back) 5 05/12/ 025 12:31 PM EDT Beatriz Gaspar Mobility (on Level Surfaces) 0 05/12/2025 1 2:31 PM EDT Beatriz Gaspar Stairs 0 05/12/2025 12:31 PM EDT Melba manrique, Beatriz Total Score 30 05/12/2025 12:31 PM EDT Beatriz Carroll * Standardized Tests Question Answer Date of Assessment Author Standardized Tests Freddie Index 05/12/2025 12:31 PM E DT Beatriz Gaspar * Elopement Risk Screen Question Answer Date of Assessment Author Does the patient exhibit any of the following behaviors? No 05/18/2025 8:00 AM Kylee Ravi RN Does the patient have a cour t ordered legal guardian? No 05/18/2025 8:00 AM Kylee Ravi RN * Manual Muscle Testing - LLE Question Answer Date of Assessment Author Manual Muscle Testing WFL 05/12/2025 12:32 PM EDT Isiah Mckeon Hip flexion 4 04/28/2025 8:38 AM EDT Maribel Khan Knee Extension 4 04/28/2025 8:38 AM EDT Maribel Bergman Ankle Dorsiflexion 4 04/28/2025 8:38 AM EDT Maribel Perea * Manual Muscle Testing - RLE Question Answer Date of Assessment Author Hip flexion 3+ 05/12/2025 12:32 PM EDT Thelma erIsiah Hip Extension 3+ 05/12/2025 12:32 PM EDT Isiah Rockwell Ankle Dorsiflexion 3+ 05/12/2025 12:32 PM ED T Isiah Mckeon * Manual Muscle Testing - RUE Question Answer Date of Assessment Author Manual Muscle Testing - RUE WFL 05/12/2025 12 :32 PM EDT Isiah Mckeon * Manual Muscle Testing - LUE Question Answer Date of Assessment Author Manual Muscle Testing - LUE WFL 05/12/2025 12 :32 PM EDT Isiah Mckeon * Participants in Care Question Answer Date of Assessment Author Greenhouse Technician N/A 05/17/2025 11:56 AM Corey Garza IV * Dynamic Sitting Balance Question Answer Date of Assessment Author Level of Assistance Contact guard 05/17/2025 1 1:56 AM Corey Burr IV Dynamic Sitting - Interventions Sitting EOB 05/09/2025 11:48 AM EDT Elmo Lima Dynamic Sitting-Balance Support No upper extremity support;Feet supported 05/17/2025 11:56 AM Corey Burr IV Dynamic Sitting-Balance Anterior/Posteri or weight shifts;Lateral weight shifts 05/17/2025 11:56 AM Corey Burr IV * Cognition Question Answer Date of Assessment Author Orientation Level Oriented X4 05/12/2025 12:32 PM EDT Isiah Mckeon * Static Sitting Balance Question Answer Date of Assessment Author Static Sitting-Level of Assistance Standby assist 05/17/2025 11:56 AM Corey Burr IV Stating Sitting - Interventions Sitting EOB 05/09/2025 11:48 AM Elmo Lester Static Sitting-Balance Support No upper extremity support;Feet supported 05/17/2025 11:56 AM Corey Burr IV * Static Standing Balance Question Answer Date of Assessment Author Static Standing-Level of Assistance Maximum assistance 05/17/2025 11:56 AM Corey Burr IV Static Standing - Interventions Standing w DEFENSE ANALYST 05/09/2025 11:48 AM Elmo Lester Static Standing-Balance Support Right upper extremity support;Left upper extremity support 05/17/2025 11:56 AM Corey Burr IV * OT Assessment Question Answer Date of Assessment Author OT Assessment Results Impaired ADL performance;Impaired IADL performance;Decreased endurance/ventilation/ga s exchange;Impaired sensation/sensory processing;Impaired functional mobility;Decreased gross motor control/coordination;Imp aired postural/trunk control;Impaired balance 05/12/2025 12:31 PM Beatriz Starks Occupational Profile Review of medical/therapy records and extensive additional review of physical, cognitive, or psychosocial history 05/12/2025 12:31 PM Beatriz Starks Clinical Decision Making High 05/12/2025 12:31 PM Beatriz Starks Barriers to Discharge Comorbidities 05/12/2025 12:31 PM Beatriz Starks Overall Eval complexity Complex 05/12/20 12:31 PM Beatriz Starks Evaluation/Treatment Tolerance Patient limited by fatigue;Patient limited by pain 05/12/2025 12:31 PM Beatriz Starks Rehab Potential Good, to achieve sta nasra therapy goals 05/12/2025 12:31 PM Beatriz Starks Performance Deficits Activities of daily living (ADLs);Instrumental activities of daily living (IADLs);Body functions;Body structures;Personal;Phys ical;Routines;Habits 05/12/2025 12:31 PM Beatriz Starks * C-SSRS (Frequent Screener) Question Answer Date of Assessment Author Is patient awake, alert, and able/willing to answer questions appropriately? Yes 05/18/2025 8:00 AM Kylee Ravi RN 1. Wish to be (Past 1 Month) No 025 8:00 AM Kylee Ravi, LOLA 2. Non-Specific Active Suici jonny Thoughts (Past 1 Month) No 05/18/2025 8:00 AM Kylee Ravi, LOLA 6. Suicidal Behavior (Lifetime) No 8:00 AM Kylee Ravi, RN * Discharge Planning Continued Question Answer Date of Assessment Author Transportation Home at Discharge Medical Transport 05/18/2025 8:00 AM Chayo Gordon, LOLA * [facility] 6-Clicks Mobility Assessment Question Answer Date of Assessment Author Difficulty patient has turni ng over in bed (including adjusting bedclothes, sheets, and blankets)? 3 05/17/2025 11:56 AM Alverto Burr am IV Difficulty patient has sitti ng down on and standing up from a chair with arms (wheelchair, bedside commode, etc.)? 2 05/17/2025 11:56 AM Gigi Burr IV Difficulty patient has movin g from lying on back to sitting on the side of the bed? 3 05/17/2025 11:56 AM Kike Burr IV How much help does the patie nt need moving to and from a bed to a chair (including a wheelchair)? 1 05/17/2025 11:56 AM Alverto Burr am IV How much help does the patie nt need to walk in hospital room? 1 05/17/2025 11:56 AM Corey Bosch IV How much help does the patie nt need climbing 3-5 steps with a railing? 1 05/17/2025 11:56 AM Alverto Burr am IV [facility] 6-Clicks Mobility Assessment Total 11 05/17/2025 11:56 AM Alverto Burr am IV documented as of this encounter Mental Status * Time Calculation Question Answer Entry Date Author Start Time [id number] 05/17/2025 11:58 AM Joceline Valle Stop Time [id number] 05/17/2025 11:58 AM Joceline Valle Time Calculation (min) 38 05/17/2025 11:58 A M Joceline Guzman * OT Therapeutic Procedures Time Entry Question Answer Entry Date Author Self Care/Home Management (Josafat DLs) Time Entry 28 05/17/2025 11:58 AM EST Joceline King * HEENT Question Answer Entry Date Author ANAND (FRANCISCA) X 05/18/2025 8:00 AM Kylee Ravi RN R Eye Mildly impaired vision 5 8:00 AM Kylee Ravi RN L Eye Mildly impaired vision 5 8:00 AM Kylee Ravi RN Throat Intact 05/11/2025 4:30 PM EDT Tamar Lynn RN Tongue [place];Moist 05/11/2025 4:30 PM LOGANT Tamar Lynn RN Mucous Membrane(s) Moist;[place];Intact 05/11/2025 4:30 PM Tamar Scruggs RN Teeth Missing teeth 05/18/2025 8:00 AM Kylee Ravi RN Neck Trachea midline;Symmetrical 05/11/2025 4:30 PM EDTamar Hunter RN Lips Intact 05/11/2025 4:30 PM EDT Tamar Lynn RN * BMI (Calculated) Answer Entry Date Author 74.8 05/18/2025 5:06 AM Gualberto Atwood RN * Percent Excess Weight Loss Answer Entry Date Author 0 04/27/2025 10:46 PM EDT Stella Daniels RN * Total Weight Change Percent Answer Entry Date Author [id number] 05/18/2025 5:06 AM Gualberto Atwood RN * Weight Change Since Preop Answer Entry Date Author 249.44 05/18/2025 5:06 AM Gualberto Atwood RN * Initial Excess Weight Answer Entry Date Author -80.74 04/27/2025 10:46 PM EDT Stella Daniels RN * IBW in lbs (Bariatric) Answer Entry Date Author 178 04/27/2025 10:46 PM EDT Stella Daniels RN * Weight Change Since Last Visit Answer Entry Date Author 0.4 05/18/2025 5:06 AM Gualberto Atwood RN * IBW in kg (Bariatric) Answer Entry Date Author 80.74 04/27/2025 10:46 PM EDT Stella Daniels RN * Percent of IBW Answer Entry Date Author 11,979.22 04/27/2025 10:46 PM EDT Stella Daniels RN * EBW (kg) Answer Entry Date Author 9,669.73 04/27/2025 10:46 PM EDT Stella Daniels RN * EBW (lbs) Answer Entry Date Author 9,660.9 04/27/2025 10:46 PM EDT Stella Daniels RN * Preprocedure Normothermia Interventions Question Answer Entry Date Author Warming Blankets Applied Yes 05/01/2025 6:46 AM LOGANT Juliana Marx RN Forced Air Warming Applied No 05/01/2025 6:4 6 AM LOGANT Juliana Marx RN * Intraprocedure Normothermia Interventions Question Answer Entry Date Author Minimize Patient Exposure Yes 05/01/2025 8:00 AM EDKelli Day RN * Progress Answer Entry Date Author improving 05/18/2025 11:31 AM Kylee Ravi RN * Infection Management Answer Entry Date Author aseptic technique maintained 05/16/2025 7:49 PM Ivan Atwood RN * Activity Assistance Provided Answer Entry Date Author assistance, 2 people 05/18/2025 11:31 AM Kylee Leach RN * Adaptive Equipment Use Answer Entry Date Author used independently 05/15/2025 11:48 AM Santy Espino RN * Supportive Measures Answer Entry Date Author active listening utilized;se lf-care encouraged 05/17/2025 9:53 PM Ivan Atwood RN * Oral Nutrition Promotion Answer Entry Date Author physical activity promoted 05/15/2025 11:48 AM Santy Santiago RN * Pressure Reduction Techniques Answer Entry Date Author frequent weight shift encouraged 05/17/2025 9:53 PM Ivan Atwood RN * Fever Reduction/Comfort Measures Answer Entry Date Author lightweight bedding;lightweight clothing 7:49 PM Ivan Atwood RN * Pressure Reduction Devices Answer Entry Date Author positioning supports utilized 05/13/2025 8:00 PM EDT Asiay Nix RN * Diversional Activities Answer Entry Date Author television 05/15/2025 11:48 AM EST Santy Alfonso, RN * Nutrition Interventions Answer Entry Date Author food preferences provided 05/15/2025 11:48 AM Santy Blank, RN * Positioning/Transfer Devices Answer Entry Date Author pillows 05/16/2025 7:49 PM EST Gualberto Slaughter RN * Infection Prevention Answer Entry Date Author environmental surveillance performed;equipment surfaces disinfected;hand hygiene promoted;rest/sleep promoted;personal protective equipment utilized 05/01/2025 11:30 AM EDT Rocío Crandall RN * Outcome Evaluation Answer Entry Date Author Reviewed of night plan of ca re with pt. pt verbalized understanding. 05/14/2025 10:36 PM EST Flornia Hinojosa RN * Family/Support System Care Answer Entry Date Author self-care encouraged 05/16/2025 7:49 PM EST Ivan Slaughter RN * Sleep/Rest Enhancement Answer Entry Date Author consistent schedule promoted ;awakenings minimized;family presence promoted;regular sleep/rest pattern promoted;natural light exposure provided 05/18/2025 11:31 AM EST Kylee Gonzalez RN * Skin Protection Answer Entry Date Author incontinence pads utilized;s ilicone foam dressing in place;skin sealant/moisture barrier applied 05/13/2025 8:00 PM EDT Asiya Nix RN * Self-Care Promotion Answer Entry Date Author independence encouraged 05/16/2025 7:49 PM EST Ivan Wynn RN * Safety Interventions Question Answer Entry Date Author Safety Precautions/Falls Reduction assistive device/personal items within reach 04/27/2025 9:42 PM EDT Stella Daniels RN * Safety Promotion Question Answer Entry Date Author Medication Review/Management medications reviewed 05/06/2025 8:00 PM EDT Judd Zavaleta RN * Individualization Question Answer Entry Date Author Patient-Specific Considerations BMI greater than 40;limb precautions 05/01/2025 9:10 AM EDT Jada Ring, RN * Goal: Anesthesia/Sedation Recovery Question Answer Entry Date Author Outcome Anesthesia/Sedation Recovery progressing 05/01/2025 9:10 AM EDT Jada Ring RN * General Emergency Care CPG Interventions Question Answer Entry Date Author Coping Interventions anticipatory [place] provided;care explained to patient/family prior to performing;safe, supportive environment facilitated 04/27/2025 9:42 PM EDT Stella Daniels RN General Care Management calm environment promoted;family presence promoted 04/27/2025 9:42 PM EDT Stella Daniels RN * Discharge Needs Assessment Question Answer Entry Date Author Discharge Facility/Level of Care Needs 62-Rehab facilty 05/18/2025 8:00 AM Chayo Gordon RN Equipment Needed After Discharge none 05/18/2025 8:00 AM Chayo Gordon RN Equipment Currently Used at Home cane, straight;walker, rolling 05/18/2025 8:00 AM Chayo Gordon RN Anticipated Changes Related to Illness inability to care for self 05/18/2025 8:00 AM Chayo Gordon RN Transportation Anticipated medical transport 12/2024 8:00 AM Chayo Gordon RN Transportation Concerns none 05/18/20 8:00 AM Chayo Gordon RN Current Discharge Risk chronically ill 8:00 AM Chayo Gordon RN Concerns to be Addressed discharge planning 12/2024 8:00 AM Chayo Gordon RN Readmission Within the Last 30 Days no previous admission in last 30 days 05/18/2025 8:00 AM Chayo Gordon RN Patient/Family Anticipated Services at Transition rehabilitation services 05/18/2025 8:00 AM Chayo Gordon RN Patient's Choice of Community Agency(s) [facility] 05/18/2025 8:00 AM Chayo Gordon RN Patient/Family Anticipates Transition to inpatient rehabilitation facility 05/18/2025 8:00 AM Chayo Gordon RN Offered/Gave Vendor List yes 8:00 AM Chayo Gordon RN Does the patient need discharge transport arranged? Yes 05/18/2025 8:00 AM Chayo Gordon RN Has discharge transport been arranged? Yes 05/18/2025 8:00 AM Chayo Gordon RN What day is the transport expected? [id number] 05/18/2025 8:00 AM Chayo Gordon RN What time is the transport expected? [id number] 05/18/2025 8:00 AM Chayo Gordon RN Who is requesting discharge planning? Provider 05/18/2025 8:00 AM Chayo Gordon RN * Goal: Optimal Comfort and Wellbeing Question Answer Entry Date Author Outcome Optimal Comfort and Wellbeing progressing 05/01/2025 9:10 AM EDT Jada Ring RN Elevated Risk Identified situational anxiety;pain 05/01/2025 9:10 AM EDT Jada Ring RN * Coping Strategies Question Answer Entry Date Author Trust Relationship/Rapport care explained;emotional support provided;empathic listening provided;questions answered;reassurance provided;thoughts/feelings acknowledged 05/06/2025 8:00 PM EDT Judd Zavaleta RN * Respiratory Interventions Question Answer Entry Date Author Airway/Ventilation Management oxygen therapy provided;position adjusted 05/06/2025 8:00 PM EDT Judd Zavaleta RN * Goal: Minimized Risk/Safety Maintenance Question Answer Entry Date Author Elevated Risk Identified VTE (venous thromboembolism);infecti on 05/01/2025 9:10 AM EDT Jada Ring RN Outcome Minimized Risk and Safety progressing 05/01/2025 9:10 AM EDT Jada Ring RN * Goal: Physiologic Homeostasis Question Answer Entry Date Author Elevated Risk Identified respiratory compromise;postoperativ e nausea and vomiting 05/01/2025 9:10 AM EDT Jada Ring RN Outcome Physiologic Homeostasis progressing 05/01/2025 9:10 AM EDT Jada Ring RN Nausea/Vomiting Interventions sips of clear liquids given;nausea triggers minimized 05/01/2025 9:10 AM EDT Jada Ring RN * Acuity/Destination Question Answer Entry Date Author Patient Acuity 3 04/27/2025 9:06 PM EDT Riley Chappell RN Triage Complete Triage complete 04/27/2025 9:06 PM ED T Riley Grant RN ED Destination Main 04/27/2025 9:06 PM EDT Riley Chappell, RN * PACU Interventions Question Answer Entry Date Author Warming Device Warm blankets 05/01/2025 9:10 AM EDT Jada Cummins, LOLA * Weight Change 24 hrs Answer Entry Date Author 2 05/18/2025 5:06 AM Gualberto Atwood, LOLA * Facility NPI Question Answer Entry Date Author NPI Medical 05/18/2025 1:55 PM Yehuda Benito RN * Precautions Question Answer Entry Date Author Medical Precautions Fall precautions 05/12/2025 12:32 PM EDT Isiah Mckeon * Presentation Question Answer Entry Date Author Lines and Tubes Telemetry;Wound vac; Urinary catheter;PICC 05/17/2025 11:58 AM Joceline Guzman Pre-Session Comments RN consented to treatment 1 07/17/2024 11:58 AM Joceline Guzman Post-Session Comments Pt positioned for comfort, all needs in reach. 05/17/2025 11:58 AM Joceline Guzman * Delirium Assessment Question Answer Entry Date Author CAM-ICU/PCAM-ICU No 05/17/2025 11:58 AM Joceline Guzman * JHHLM Question Answer Entry Date Author [facility] Daily Mobility Score 3 05/17/2025 11 :58 AM Joceline Guzman * Cognition Question Answer Entry Date Author Deficit Awareness Decreased awareness of deficits 05/17/2025 11:58 AM Joceline Guzman Mood/Behavior Alert 05/17/2025 11:58 AM Joceline Guzman Overall Cognitive Status WFL 025 11:58 AM Joceline Guzman Arousal/Alertness Appropriate response s to stimuli 05/17/2025 11:58 AM Joceline Guzman Attention Span Attends with cues to redirect 05/17/2025 11:58 AM Joceline Guzman Safety Judgment Decreased awareness of need for assistance 05/17/2025 11:58 AM Joceline Guzman Awareness of Errors Assistance required to identify errors made;Assistance required to correct errors made 05/17/2025 11:58 AM Joceline Guzman Method of Communication Verbal 05/17/20 11:58 AM Joceline Guzman Single Step Commands Consistently;100% o f the time 05/17/2025 11:58 AM EST Joceline King Multi-Step Commands Consistently;100% of the time 05/17/2025 11:58 AM EST Joceline King * General Question Answer Entry Date Author Next PT Re-Assessment Date [id number] 05/12/2025 12: 32 PM EDT Isiah Mckeon * PT Assessment Question Answer Entry Date Author History Profile 1 - 2 personal facto rs and/or comorbidities 04/28/2025 8:38 AM EDT Maribel Perea Evaluation/Treatment Tolerance Patient limited by pain;Patient limited by fatigue 05/12/2025 12:32 PM EDT Isiah Mckeon Diagnosis Impaired functional mobility and decreased activity tolerance 05/12/2025 12:32 PM EDT Isiah Mckeon Clinical Presentation Evolving clinical presentation with changing characteristics 04/28/2025 8:38 AM EDT Maribel Perea Clinical Decision Making Moderate complexity 8:38 AM EDT Maribel Perea Rehab Potential Good, to achieve sta nasra therapy goals 05/12/2025 12:32 PM EDT Isiah Mckeon Activity Tolerance Tolerates 30 min act ivity with multiple rests 05/12/2025 12:32 PM EDT Isiah Mckeon * HLM Score Question Answer Entry Date Author HLM Daily Mobility Goal 2 04/30/2025 10: 00 PM EDT Rodrick Oconnell, LOLA * Plan of Care Reviewed With Answer Entry Date Author patient 05/17/2025 9:53 PM EST Gualberto Slaughter RN * Behavior Risk Screen Tool Question Answer Entry Date Author Is there concern that the pa tient will try to elope? No 05/04/2025 8:00 AM EDT Petros Smith, RN * Pressure Injury Prevention (PIP) Interventions Question Answer Entry Date Author Pressure Reducing Devices Pillow 2024 8:00 AM EST Kylee Gonzalez RN Preventative Foam Dressing Location Sacrum 05/14/2025 8:45 PM EST Florina Hinojosa RN Bed Type Bariatric Dolphin 05/18/2025 8:0 0 AM EST Kylee Gonzalez RN * Vital Signs Question Answer Entry Date Author BP 150/94 05/18/2025 7:34 AM EST Inter face, Doc Flowsheet In Temp 97.7 05/18/2025 7:34 AM EST Inter face, Doc Flowsheet In Pulse 58 05/18/2025 7:34 AM EST Inter face, Doc Flowsheet In Resp 15 05/18/2025 7:34 AM EST Inter face, Doc Flowsheet In Heart Rate Source Monitor 05/18/2025 7:34 AM EST Kylee Gonzalez RN MAP (mmHg) 113 05/18/2025 7:34 AM EST Inter face, Doc Flowsheet In * Oxygen Therapy Question Answer Entry Date Author SpO2 97 05/18/2025 7:34 AM EST Interface, Doc Flowsheet In O2 Flow Rate (L/min) 2 05/18/2025 3:53 AM Ivan Atwood RN Oximetry Probe Site Changed No 04/13 9:40 AM EDT Jada Ring RN Patient Activity During SpO2 Measurement At rest 05/16/2025 7:48 PM Ivan Atwood RN Oximetry Probe Site Location Left Digit 2:52 PM EDT Ailyn Finch CNA * Height and Weight Question Answer Entry Date Author Weight 8800.76 05/18/2025 5:06 AM Ivan Atwood RN Weight Method Bed scale 05/18/2025 5:06 AM Ivan Atwood RN * Attendant Honor Bar Question Answer Entry Date Author Telemetry Box Number PACU BAY #[id number] 05/01/2025 9:10 AM E Jada Jo RN * Gastrointestinal Question Answer Entry Date Author Passing Flatus Yes 05/15/2025 4:20 AM Florina Real RN Abdominal Tenderness Soft;Nontender 05/15/2025 4:20 AM Florina Real RN Bowel Sounds (All Quadrants) Active 12/2024 4:00 AM Ivan Atwood RN Gastrointestinal (WDL) WDL 8:00 AM Kylee Ravi RN Abdomen Inspection Rounded;Soft 05/18/2025 8: 00 AM Kylee Ravi RN GI Symptoms Constipation 05/11/2025 4:30 PM EDT Tamar Lynn RN * Peripheral Vascular Question Answer Entry Date Author Peripheral Vascular (WDL) X 2024 8:00 AM Kylee Ravi RN Generalized Edema Non-pitting 05/18/2025 8:0 0 AM Kylee Ravi RN Perineal Edema Non-pitting 05/18/2025 8:00 AM Kylee Ravi RN RLE Edema Non-pitting 05/18/2025 8:00 AM Kylee Ravi RN LLE Edema Non-pitting 05/18/2025 8:00 AM Kylee Ravi RN Capillary Refill Less than/equal to 2 seconds (All extremities) 05/18/2025 8:00 AM Kylee Ravi RN Pulses L pedal;R pedal;R posterior tibial;L posterior tibial;R radial;L radial 05/18/2025 8:00 AM Kylee Ravi RN Cyanosis None 05/12/2025 8:00 AM EDT Kaylin Robb RN Edema Generalized;Right lo wer extremity;Left lower extremity 05/18/2025 8:00 AM Kylee Ravi RN PVS Additional Assessments RLE 05/15/2025 4:00 PM EST Santy Garcia RN * RULouise Neurovascular Assessment Question Answer Entry Date Author RUE Sensation Full sensation 05/11/2025 4:30 PM EDT Tamar Lynn RN RULouise Capillary Refill Less than/equal to 2 seconds 05/18/2025 8:00 AM Kylee Ravi RN R Radial Pulse +2 05/18/2025 8:00 AM Kylee Ravi RN * LUE Neurovascular Assessment Question Answer Entry Date Author LUE Sensation Full sensation 05/11/2025 4:30 PM EDT Tamar Lynn RN LUE Capillary Refill Less than/equal to 2 seconds 05/18/2025 8:00 AM Kylee Ravi RN L Radial Pulse +2 05/18/2025 8:00 AM Kylee Ravi RN * RLE Neurovascular Assessment Question Answer Entry Date Author RLE Sensation Numbness 05/11/2025 4:30 PM EDT Tamar Lynn RN RLE Capillary Refill Less than/equal to 2 seconds 05/18/2025 8:00 AM Kylee Ravi RN RLLouise Color Other (Comment) 05/18/2025 8:00 AM Kylee Ravi RN RLE Temperature/Moisture Warm;Dry 05/18/2025 8:00 AM Kylee Ravi RN R Posterior Tibial Pulse +1 05/18/2025 8:00 AM Kylee Ravi RN R Pedal Pulse +1 05/18/2025 8:00 AM Kylee Ravi RN RLLouise Movement Present 05/18/2025 8:00 AM Kylee Ravi RN * LLLouise Neurovascular Assessment Question Answer Entry Date Author LLE Sensation Numbness 05/11/2025 4:30 PM EDT Tamar Lynn RN LLE Capillary Refill Less than/equal to 2 seconds 05/18/2025 8:00 AM Kylee Ravi RN L Posterior Tibial Pulse +1 05/18/2025 8:00 AM Kylee Ravi RN L Pedal Pulse +1 05/18/2025 8:00 AM Kylee Ravi RN * Musculoskeletal Question Answer Entry Date Author RUE Full movement 05/18/2025 8:00 AM Kylee Ravi RN RLLouise Swelling;Weakness;Singletary rge ry;Limited movement 05/18/2025 8:00 AM Kylee Ravi RN LUE Full movement 05/18/2025 8:00 AM Kylee Ravi RN LLE Swelling;Weakness;Fu ll movement 05/18/2025 8:00 AM Kylee Ravi RN Musculoskeletal (WDL) X 05/18/2025 8:00 AM Kylee Ravi RN * Urine Assessment Question Answer Entry Date Author Urine Color Yellow/straw 05/18/2025 8:00 AM Kylee Kendrick RN Urine Appearance Clear 05/18/2025 8:00 AM Kylee Amador RN Urine Odor No odor 05/18/2025 8:00 AM Kylee Kendrick RN Urinary Incontinence No 05/18/2025 8:00 AM Kylee Rg RN * Genitalia Question Answer Entry Date Author Male Genitalia Swelling 05/18/2025 8:00 AM Kylee Leach RN * Psychosocial Question Answer Entry Date Author Psychological state Calm;Compliant;Coope rati ve;Brightens with approach 05/18/2025 8:00 AM Kylee Ravi RN Needs Expressed Physical 05/18/2025 8:00 AM Kylee Ravi RN Psychosocial (WDL) WDL 05/18/2025 8: 00 AM Kylee Raiv RN Psychosocial Additional Assessments No 05/18/2025 8:00 AM Kylee Ravi RN Ability to Express Feelings Able to express 05/18/2025 8:00 AM Kylee Ravi RN Ability to Express Needs Able to express 025 8:00 AM Kylee Ravi RN Ability to Express Thoughts Able to express 05/18/2025 8:00 AM Kylee Ravi RN Length of Time/Family Visitation Rooming in 05/04/2025 4:04 PM EDT Rocío Crandall RN Ability to Understand Others Understands 05/18/2025 8:00 AM Kylee Ravi RN * Unmeasured Output Question Answer Entry Date Author Unmeasured Stool Occurrence (hourly total) 1 05/16/2025 11:00 AM Char Real CNA * Intake Question Answer Entry Date Author [address]O. [address] 05/18/2025 9:00 AM Kylee Kendrick RN I.V. 20 04/29/2025 11:26 PM EDT Brittny Garner, LOLA * Output (mL) Question Answer Entry Date Author Stool Color Brown 05/16/2025 11:00 AM Char Mario CNA Stool Amount Large 05/16/2025 11:00 AM Char Mario CNA Stool Appearance Formed 05/16/2025 11:00 AM Char Real CNA Bowel Incontinence No 05/16/2025 11:00 AM Char Abdalla CNA Desha Stool Assessment Sausage 05/16/2025 11:00 AM Char Real CNA * Craven Fall Risk Question Answer Entry Date Author History of Falling, Immediat e or Within 3 Months 0 05/18/2025 8:00 AM Kylee Ravi RN Secondary Diagnosis 15 05/18/2025 8:00 AM Kylee Reynaga RN Ambulatory Aid 15 05/18/2025 8:00 AM Kylee Leach RN Intravenous Therapy/Heparin Lock 0 05/18/20 8:00 AM Kylee Ravi RN Gait/Transferring 10 05/18/2025 8:00 AM Kylee Ravi RN Mental Status 0 05/18/2025 8:00 AM Kylee Wade RN Craven Fall Risk Score 40 05/18/2025 8:00 AM Kylee Ravi RN * Miguel Ángel Scale Question Answer Entry Date Author Sensory Perceptions 3 05/18/2025 8:00 AM Kylee Reynaga RN Moisture 3 05/18/2025 8:00 AM Kylee Kendrick RN Activity 3 05/18/2025 8:00 AM Kylee Kendrick RN Mobility 3 05/18/2025 8:00 AM Kylee Kendrick RN Nutrition 3 05/18/2025 8:00 AM Kylee Kendrick RN Friction and Shear 2 05/18/2025 8:00 AM Kylee Ravi RN Miguel Ángel Scale Score 17 05/18/2025 8:00 AM Kylee Ravi RN * BSA (Calculated - sq m) Answer Entry Date Author 3.56 05/18/2025 5:06 AM Gualberto Atwood RN * BMI (Calculated) Answer Entry Date Author 74.58 05/18/2025 5:06 AM Gualberto Atwood RN * Cardiac Question Answer Entry Date Author Telemetry Strip Reviewed Yes, I have reviewed and acknowledged the strip measurements as interpreted by the CPT's 05/12/2025 4:00 PM EDT Kaylin Robb RN Cardiac Rhythm NSR 05/13/2025 3:58 AM EDT Haritha Lam RN Heart Block Type Bundle branch block 05/13/2025 3:58 AM EDT Haritha Lam test and turn up technicianElectric Car Operator On No 05/18/2025 8:00 AM EST Kylee Gonzalez RN Cardiac (WDL) WDL 05/18/2025 8:00 AM EST Kylee Gonzalez RN Pacemaker No 05/18/2025 8:00 AM EST Kylee Gonzalez RN Cardiac Regularity Regular 05/18/2025 4: 00 AM EST Ivan Slaughter RN Heart Sounds S1, S2 05/18/2025 8:00 AM EST Kylee Gonzalez RN Telemetry/Attendant Honor Bar No 05/18/2025 8:00 AM EST Kylee Gonzalez RN Jugular Venous Distention (JVD) No 05/15/2025 4:20 AM EST Florina Hinojosa RN Cardiac Symptoms None 05/18/2025 8:00 AM EST Kylee Gonzalez RN * Respiratory Question Answer Entry Date Author Bilateral Breath Sounds Clear;Diminished 025 8:00 AM EST Kylee Gonzalez RN R Breath Sounds Diminished 05/11/2025 4:30 PM EDT Tamar Lynn RN L Breath Sounds Diminished 05/11/2025 4:30 PM EDT Tamar Lynn RN Respiratory Pattern Regular 05/18/2025 4 :00 AM Ivan Atwood RN Chest Assessment Chest expansion symmetrical 05/18/2025 4:00 AM EST Ivan Slaughter RN Cough Non-productive 05/11/2025 4:30 PM EDT Tamar Lynn RN Sputum Amount Moderate 05/07/2025 4:00 PM EDT Iveth Boss RN Sputum Color Unable to assess 05/11/2025 4:30 PM EDT Tamar Lynn RN Sputum Consistency Thin 05/07/2025 4: 00 PM EDT Iveth Boss RN Respiratory (WDL) X 05/18/2025 8:0 0 AM EST Kylee Gonzalez RN Respiratory Additional Assessments Yes 05/04/2025 4:04 PM EDT Rocío Crandall RN Respiratory Effort Unlabored 05/17/2025 8: 00 PM Ivan Atwood RN Respiratory Depth/Rhythm Regular 4:00 AM Ivan Atwood RN Dyspnea Occurrence With exertion 05/14/2025 8: 45 PM EST Florina Hinojosa RN * Vitals Question Answer Entry Date Author Temp src Oral 05/18/2025 7:34 AM EST Char Garcia CNA BP Location Right arm 05/18/2025 7:34 AM Char Tyler CNA BP Method Automatic 05/18/2025 7:34 AM Char Tyler CNA Pulse Oximetry Type Intermittent 05/10/2025 3:59 AM ED T Maribell Saeed Oxygen Therapy Supplemental oxygen 05/18/2025 7:34 AM Char Real CNA O2 Delivery Method Nasal cannula 05/18/2025 7:34 AM Char Abdalla CNA Patient Position Lying 05/18/2025 7:34 AM Char Johnson CNA * Point of Care Tests Question Answer Entry Date Author Provider Role Attending physician 05/13/2025 4 :57 AM EDT Haritha Lam, RN Blood Glucose Meter 124 05/18/2025 8 :09 AM Char Real CNA Provider Name Magali EscalanteDO 05/13/2025 4: 57 AM EDT Haritha Lam RN Method of Communication Secure message 05/13/20 4:57 AM EDT Haritha Lam RN Reason for Communication Evaluate 4:57 AM EDT Haritha Lam RN Response No new orders 05/13/2025 4:57 AM EDT Haritha Lam, RN Name of Nurse Notified of Blood Glucose Results (First and Last) Ivan Slaughter RN 05/16/2025 8:28 PM Jamal Arguello CNA Glucose Sample Retrieved From Finger stick 05/18/2025 8:09 AM EST Char Hinojosa CNA * Vision - Basic Assessment Question Answer Entry Date Author Baseline Vision Glasses reading 05/12/2025 12:32 PM ED T Isiah Mckeon Current Vision Intact 05/12/2025 12:32 PM EDT Jose salgadoIsiah Tracking Intact 05/12/2025 12:14 PM EDT Beatriz Carroll Vision Comments Pt denies any new ch anges in vision 05/12/2025 12:32 PM EDT Isiah Mckeon * Patient Information Question Answer Entry Date Author Primary Caregiver Self 04/28/2025 1:00 PM EDT Mayra Apodaca RN Support System Immediate family 04/28/2025 1:00 PM EDT Mayra Apodaca RN * Activities of Daily Living Question Answer Entry Date Author Functional Status Minimum assistance 04/28/2025 1:00 PM LOGANT Mayra Apodaca RN Living Arrangements Spouse/Significant other;Children 04/28/2025 1:00 PM EDT Mayra Apodaca RN Type of Residence Private residence;[place] Level 04/28/2025 1:00 PM LOGANT Mayra Apodaca RN Smoker in the Home? No 04/28/2025 1 :00 PM EDT Mayra Apodaca RN * Income Information Question Answer Entry Date Author Income Source Disabled 04/28/2025 1:00 PM LOGANT Mayra Apodaca RN Income/Expense Information Expenses exceed income 04/28/2025 1:00 PM EDT Mayra Apodaca RN Current Resources Utilized None 04/28/2025 1:00 PM EDT Mayra Apodaca RN * Advance Directives (For Healthcare) Question Answer Entry Date Author Advance Directive Not applicable 05/04/2025 8:0 0 AM EDT Petros Smith RN Pre-existing DNR/DNI Order No 05/04 8:00 AM EDT Petros Smith, RN Information Provided on Healthcare Directives No 05/04/2025 8:00 AM EDT Petros Smith, RN Patient Requests Assistance No 04/13 8:00 AM EDT Petrso Smith, RN Have you reviewed your Advance Directive and is it valid for this stay? No 05/04/2025 8:00 AM EDT Petros Smith RN * Nutrition Screen Question Answer Entry Date Author Difficulty Chewing or Swallowing No 05/04/2025 8:00 AM EDT Petros Smith RN Burn, Pressure Injury, or Non-Healing Wound Yes (Comment) 05/04/2025 8:00 AM EDT Petros Smith RN Home Tube Feeding or Total Parenteral Nutrition (TPN) No 05/04/2025 8:00 AM EDT Bon Smith RN Food allergy, Pentecostalism, or Cultural nutrition needs No 05/04/2025 8:[address]T Dre Smith [address] RN * Trauma/Abuse Assessment Question Answer Entry Date Author Physical Abuse Denies 05/04/2025 8:00 AM EDT Petros Tristan RN Verbal Abuse Denies 05/04/2025 8:00 AM EDT Petros Campa RN * Values/Beliefs Question Answer Entry Date Author Cultural Requests During Hospitalization na 05/04/2025 8:00 AM EDT Petros Smith RN Spiritual Requests During Hospitalization na 05/04/2025 8:00 AM EDT Petros Smith RN Unable to assess No 05/04/2025 8:00 AM EDT Petros Kerr RN * Genitourinary Question Answer Entry Date Author Genitourinary (WDL) X 05/18/2025 8:00 AM Kylee Reynaga RN Genitourinary Symptoms Rios catheter 05/18/2025 8:00 AM Kylee Ravi RN * Neurological Question Answer Entry Date Author Level of Consciousness Alert 8:00 AM Kylee Ravi RN Orientation Level Oriented X4 05/18/2025 8:0 0 AM yKlee Ravi RN Cognition Follows commands 05/14/2025 4:00 PM Kaylin Espinosa RN Speech Clear 05/14/2025 4:00 PM EST Kaylin Robb RN L Pupil Reaction Brisk 05/11/2025 4:30 PM EDT Tamar Lynn RN L Pupil Size (mm) 3 05/11/2025 4:3 0 PM EDT Tamar Lynn R, RN R Pupil Reaction Brisk 05/11/2025 4:30 PM EDT Leah, Tamar R, RN R Pupil Size (mm) 3 05/11/2025 4:3 0 PM EDT Tamar Lynn, RN LUE Motor Response Responds to commands 05/11/20 4:30 PM EDT Tamar Lynn, RN LLE Motor Response Responds to commands 05/11/20 4:30 PM EDT Tamar Lynn, RN RUE Motor Response Responds to commands 05/11/20 4:30 PM EDT Tamar Lynn, RN RLE Motor Response Responds to commands 05/11/20 4:30 PM EDT Tamar Lynn RN Neuro (WDL) WDL 05/18/2025 8:00 AM EST Kylee Gonzalez, RN Swallow Able to swallow michael ds and liquids without difficulty 05/18/2025 4:00 AM EST Ivan Slaughter RN R Hand Grasp Strong 05/11/2025 4:30 PM EDT Tamar Lynn, RN L Hand Grasp Strong 05/11/2025 4:30 PM EDT Tamar Lynn R, RN R Foot Dorsiflexion Strong 05/11/2025 4 :30 PM EDT Tamar Lynn R, RN L Foot Dorsiflexion Strong 05/11/2025 4 :30 PM EDT Tamar Lynn R, RN R Foot Plantar Flexion Strong 4:30 PM EDT Tamar Lynn R, RN L Foot Plantar Flexion Strong 4:30 PM EDT Tamar Lynn R, RN R Pupil Shape Round 05/11/2025 4:30 PM EDT Tamar Lynn R, RN L Pupil Shape Round 05/11/2025 4:30 PM EDT Tamar Lynn, RN Neuro Symptoms None 05/11/2025 4:30 PM EDT Tamar Lynn, RN RUE Motor Strength Normal power 05/11/2025 4: 30 PM EDT Tamar Lynn RN LUE Motor Strength Normal power 05/11/2025 4: 30 PM EDT Tamar Lynn RN RLE Motor Strength Can overcome resistance 05/11/2025 4:30 PM EDT Tamar Lynn RN LLE Motor Strength Can overcome resistance 05/11/2025 4:30 PM EDT Tamar Lynn RN Pupil Assessment Yes 05/11/2025 4:30 PM EDT Tamar Lynn RN Hand Grasp/Motor Function/Sensation Assessment Grasp;Motor response;Sensation;Mot or strength;Dorsiflexion; Plantar flexion 05/11/2025 4:30 PM EDT Tamar Lynn RN * Height and Weight Question Answer Entry Date Author Height 72 04/27/2025 10:46 PM EDT Stella Mauro RN Height Method Stated 04/27/2025 10:46 PM EDT Stella Foss RN * Current Blood Glucose Answer Entry Date Author 216 05/17/2025 8:04 PM Gualberto Atwood RN * Insulin Instructions: Answer Entry Date Author No dose needed. 05/17/2025 8:04 PM Gualberto Atwood RN * Safe Environment Question Answer Entry Date Author 37-Pin Connection [Bed and Wall] Yes 05/18/2025 8:00 AM Kylee Ravi RN Arm Bands On ID 05/18/2025 8:00 AM Kylee Ravi RN Side Rails/Bed Safety 2/4 05/18/2025 8:00 AM Kylee Ravi RN NonSkid Footwear On;Patient in bed 05/18/2025 8: 00 AM Kylee Ravi RN The Patient's Environment is Safe Yes 05/18/2025 8:00 AM Kylee Ravi RN Head of Bed Angle 45 05/18/2025 8:0 0 AM Kylee Ravi RN Bed Foot Left Rail Up State No 110 12/2024 8:00 AM Kylee Ravi RN Bed Head Right Rail Up State Yes 05/18/2025 8:00 AM Kylee Rvai RN Bed Head Left Rail Up State Yes 12/2024 8:00 AM Kylee Ravi RN Bed Foot Right Rail Up State No 05/18/2025 8:00 AM Kylee Ravi RN Bed Exit System Activate Status No 05/18/2025 8:00 AM Kylee Ravi RN Bed Brake State Yes 05/18/2025 8:00 AM Kylee Ravi RN Bed Low Height State Yes 05/18/2025 8:00 AM Kylee Ravi RN Chair Exit System Activate Status No 05/18/2025 8:00 AM Kylee Ravi RN * Fall Risk Interventions Question Answer Entry Date Author Safety Promotion/Fall Prevention safety round/check completed;room organization consistent;activity supervised 05/18/2025 8:00 AM Kylee Ravi RN Enhanced Safety Measures monitored by video;room near unit station 05/18/2025 4:00 AM Ivan Atwood RN Toilet Every 2 Hours-In Advance of Need Yes 05/17/2025 8:00 PM Ivan Atwood RN Hourly Visual Checks Awake;Quiet 05/18/2025 8:00 AM Kylee Ravi RN Room Door Open Deferred to promote rest 8:00 PM Ivan Atwood RN Gait Belt Used For Transfers Not applicable 05/17/2025 8:00 PM Ivan Atwood RN Fall Bundle Components Call light within reach;Personal belongings within reach;Overbed table within reach;Bed in lowest position;Bed wheels locked;Non-skid footwear on if up in chair or ambulating;Staff to remain with patient during toileting 05/18/2025 8:00 AM Kylee Ravi RN * Mobility Question Answer Entry Date Author Range of Motion active ROM (range of motion) encouraged 05/17/2025 8:00 PM Ivan Atwood RN Activity Management activity encouraged;activity adjusted per tolerance;previous patient education reinforced 05/18/2025 8:00 AM Kylee Ravi RN Assistive Device Utilized lift device 2024 8:00 PM Ivan Atwood RN Body Position turned;right;left;we ight shifting;education provided 05/18/2025 9:00 AM Kylee Ravi RN VTE Prevention/Management medication;SCD s (sequential compression devices) off 05/18/2025 8:00 AM Kylee Ravi RN Head of Bed (HOB) Positioning HOB elevated 05/18/2025 9:00 AM Kylee Ravi RN Repositioned Prompted independent patient to reposition 05/18/2025 4:00 AM Ivan Atwood RN Head of Bed Elevated Self regulated 05/18/2025 9:00 AM Kylee Ravi RN Heels/Feet Heels elevated off bed 8:00 PM Ivan Atwood RN Positioning Frequency Able to turn self 05/18/20 9:00 AM Kylee Ravi RN * Hygiene Question Answer Entry Date Author Perineal Care perineum cleansed 05/16/2025 11: 00 AM Char Real CNA Bathing/Skin Care bath, complete 05/16/2025 11: 00 AM Char Real CNA Oral Care mouth wash rinse 05/18/2025 8:00 AM Kylee Ravi RN Oral Care (Yes/No) Yes 05/18/2025 8: 00 AM Kylee Ravi RN Rios Care Castile Wipes Used Yes 05/18/2025 5:00 AM Ron Oro CHG (Chlorhexidine Gluconate) Hygiene Wipes 05/18/2025 12:00 AM Ivan Atwood RN CHClaire Treatment Refused-Action Taken Education provided 04/29/2025 6:00 AM Marian Saldivar RN * Precautions Question Answer Entry Date Author Isolation Precautions precautions maintained 12/2024 8:00 AM Kylee Ravi RN Precautions Environmental surveillance 05/18 8:00 AM Kylee Ravi RN * Family/Significant Other Communication Question Answer Entry Date Author Family/Significant Other Update Visiting 8:00 AM Kaylin Espinosa RN * Telemetry Details Question Answer Entry Date Author Telemetry Audible Yes 05/18/2025 8:00 AM Kylee Ravi RN Telemetry Alarms Set Yes 05/18/2025 8:00 AM E Kylee Dorsey RN * Comfort and Environment Interventions Question Answer Entry Date Author Heat Therapy Applied (Comment) 05/01/2025 9:1 0 AM Jada Christensen RN Comfort Full linen change 05/16/2025 11: 00 AM EST Char Hinojosa CNA Additional Comfort/Environmental Interventions Heat therapy 05/01/2025 9:10 AM Jada Christensen RN * Miscellaneous Devices Question Answer Entry Date Author Equipment trapeze/overhead bed frame 05/14/2025 8:0 0 AM Kaylin Espinosa RN * Safety Equipment at Bedside Question Answer Entry Date Author Standard Bedside Safety Ambu bag/mask at bedside;Oxygen available and working;Suction available, setup and working 05/18/2025 8:00 AM Kylee Ravi RN Additional Bedside Safety Bed in locked and low position;Clutter free environment 05/18/2025 8:00 AM Kylee Ravi RN * Saline Flush (mL) Answer Entry Date Author 10 05/13/2025 6:10 PM Kaylin Frank RN * IBW/kg (Calculated) Male Answer Entry Date Author 77.6 04/27/2025 10:46 PM EDStella Grider RN * IBW/kg (Calculated) Female Answer Entry Date Author 73.1 04/27/2025 10:46 PM Stella Correa RN * ADL Screening Question Answer Entry Date Author Patient's Vision Adequate to Safely Complete Daily Activities Yes 05/04/2025 8:00 AM Petros Valenzuela, LOLA Patient's Judgment Adequate to Safely Complete Daily Activities Yes 05/04/2025 8:00 AM Petros Valenzuela RN Patient's Memory Adequate to Safely Complete Daily Activities Yes 05/04/2025 8:00 AM EDPetros Pillai RN Patient Able to Express Needs/Desires Yes 05/04/2025 8:00 AM EDPetros Pillai RN Dressing Independent 05/04/2025 8:00 AM EDPetros Pillai RN Grooming Independent 05/04/2025 8:00 AM Petros Valenzuela RN Feeding Independent 05/04/2025 8:00 AM EDPetros Pillai RN Bathing Needs assistance 05/04/2025 8:00 AM EDPetros Pillai RN Toileting Needs assistance 05/04/2025 8:00 AM EDPetros Pillai RN In/Out Bed Dependent 05/04/2025 8:00 AM Petros Valenzuela RN Walks in Home Dependent 05/04/2025 8:00 AM Petros Valenzuela RN Weakness of Legs None 05/04/2025 8:00 AM Petros Valenzuela RN Weakness of Arms/Hands None 8:00 AM Petros Valenzuela RN Hearing - Right Ear Functional 05/04/2025 8 :00 AM Petros Valenzuela RN Hearing - Left Ear Functional 05/04/2025 8: 00 AM Petros Valenzuela RN * Consults Question Answer Entry Date Author Integrative Medicine Consult Needed No 05/04/2025 8:00 AM Petros Valenzuela RN Pastoral Care Consult Needed No 05/04/2025 8 :00 AM Petros Valenzuela RN Social Services Consult Needed No 05/04/2025 8:00 AM Petros Valenzuela RN * Therapy Consults Question Answer Entry Date Author PT Evaluation Needed 2 05/04/2025 8:00 AM E Petros Souza, RN OT Evaluation Needed 2 05/04/2025 8:00 AM E Petros Souza, RN PROGRAM MANAGEMENT MANAGER Evaluation Needed 2 05/04/2025 8:00 AM EDPetros Pillai, RN * Assistive Devices Question Answer Entry Date Author Assistive Devices Eyeglasses;Cane 04/29/2025 6:48 PM E Chuyita Johnson, RN * PAINAD (Pain Assessment in Advanced Dementia) Question Answer Entry Date Author Pain Management Interventions medication (see MAR);rest;relaxation techniques promoted;quiet environment facilitated 05/18/2025 9:06 AM Kylee Ravi RN * NPO/Void Status Question Answer Entry Date Author Time of Last Liquid 73669 05/01/2025 6:49 AM ED T Juliana Marx RN Date of Last Liquid 96072 05/01/2025 6:49 AM ED T Juliana Marx RN Date of Last Solid 96556 05/01/2025 6:49 AM EDT Juliana Marx RN Time of Last Solid 01955 05/01/2025 6:49 AM EDT Juliana Marx RN * Provider Notification Question Answer Entry Date Author Shift Event Other (Comment) 05/13/2025 4:57 AM EDT To Haritha thacker RN Notification Time 98468 05/13/2025 4:57 AM EDT Haritha Lam RN * Alarm Limits Question Answer Entry Date Author HR Alarm Limit Low 50 05/03/2025 8:00 AM EDT Kylee Gonzalez RN HR Alarm Limit High 120 05/03/2025 8:00 AM ED Kylee Fang RN RR Alarm Limit Low 8 05/01/2025 9:10 AM EDT Jada Ring RN RR Alarm Limit High 20 05/01/2025 9:10 AM ED Jada Contreras RN SpO2 Alarm Limit Low 92 05/03/2025 8:00 AM E DT Kylee Gonzalez RN SpO2 Alarm Limit High 100 05/03/2025 8:00 AM EDT Kylee Gonzalez RN BP Mean Alarm Limit Low 60 05/01/2025 9:10 A M EDT Jada Ring RN * End of Shift Review Question Answer Entry Date Author Shift Review Complete Yes 05/17/2025 8:00 AM Deepthi Galeano RN Shift Report Received From Reno Slaughter RN 05/17/2025 8:0 0 AM Deepthi Galeano, LOLA Shift Report Given To Monae Herman RN 05/17/2025 8:00 AM Deepthi Galeano, LOLA * Hourly Rounding Question Answer Entry Date Author Hourly Rounding Complete Per Guideline Yes 05/18/2025 11:00 AM Kylee Ravi RN * Patient Violence Risk Assessment Question Answer Entry Date Author History of Violence: In the past 12 hours has the PATIENT exhibited any of the following? None 05/18/2025 8:00 AM Kylee Ravi RN Potential for Violence: In the past 12 hours has the PATIENT exhibited any of the following? None 05/18/2025 8:00 AM Kylee Ravi RN Risk No identified risk 05/18/2025 8: 00 AM Kylee Ravi RN History of Violence: In the past 12 hours has a PARTNER IN CARE of the patient exhibited any of the following? None 05/18/2025 8:00 AM Kylee Ravi RN * Chlorhexidine Screening Question Question Answer Entry Date Author Have you ever had a rash or burn develop after a hospital procedure and/or operation or been told you have an allergy or sensitivity to chlorhexidine or pink pre-surgical soap? No 05/01/2025 6:45 AM EDT Juliana Marx RN * Mobility Question Answer Entry Date Author Ambulation Not performed;Unable to assess 05/14/2025 8:45 PM EST Florina Hinojosa RN * Airway Question Answer Entry Date Author Airway Patency Patent 04/29/2025 4:37 AM EDT Britt Benson, LOLA Airway (WDL) WDL 04/29/2025 4:37 AM EDT Britt Helms RN * Breathing Question Answer Entry Date Author Breathing (WDL) X 04/29/2025 4:37 AM EDT Britt Cavazos RN * Circulation Question Answer Entry Date Author Circulation (WDL) X 04/29/2025 4:37 AM EDT Birtt Helms, LOAL * Disability Question Answer Entry Date Author Disability (WDL) WDL 04/29/2025 4:37 AM EDT Britt Moralez, LOLA * Restart Vitals Timer Answer Entry Date Author Yes 05/18/2025 7:34 AM EST Interface , Doc Flowsheet In * Injection Rate mL/s Answer Entry Date Author 2 04/28/2025 3:35 AM EDT William Linder T * Neurological Question Answer Entry Date Author Neuro ([facility]) [facility] 05/01/2025 9:40 AM EDT Jada Cummins RN * HEENT Question Answer Entry Date Author HEENT ([facility]) X 05/01/2025 9:10 AM EDT Jada Cummins RN * Cardiac Question Answer Entry Date Author Cardiac ([facility]) [facility] 05/01/2025 9:10 AM EDT Jada Chavez RN * Gastrointestinal Question Answer Entry Date Author Gastrointestinal ([facility]) [facility] 05/01/2025 9:10 AM EDT Jada Ring RN * Genitourinary Question Answer Entry Date Author Genitourinary ([facility]) X 05/01/2025 9:10 AM ED T Jada Ring RN * Psychosocial Question Answer Entry Date Author Psychosocial ([facility]) [facility] 05/01/2025 9:10 AM EDT Jada Ring RN * Pain Assessment Question Answer Entry Date Author Pain Assessment 0-10 (Adult DVPRS/Pe ds 0-10) 05/01/2025 9:40 AM EDT Jada Ring RN * IBW/kg (Calculated) Answer Entry Date Author 77.6 04/27/2025 10:46 PM EDT Stella Daniels RN * Preop Holding - SSI Checklist Question Answer Entry Date Author Nasal decolonization swabs d one in preop holding? Yes 05/01/2025 6:45 AM EDT Juliana Marx RN * STOP-Bang Questionnaire Question Answer Entry Date Author Do you snore loudly? 1 05/04/2025 8:00 AM Petros Abdul, RN Do you often feel tired or fatigued after your sleep? 1 05/04/2025 8:00 AM EDT Bon Smith RN Has anyone ever observed you stop breathing in your sleep? 1 05/04/2025 8:[address], RN Do you have or are you being treated for high blood pressure? 1 04/29/2025 6:48 PM EDT Chuyita Abel RN Is BMI greater than 35 kg/m2? 1=Yes 05/04/2025 8:00 AM EDT Petros Smith RN Age older than 50 years old? 0=No 05/04/2025 8 :00 AM EDT Petros Smith RN Is your neck circumference g reater than 17 inches (Male) or 16 inches (Female)? 1 05/04/2025 8:00 AM EDT Petros Smith RN Gender - Male 1=Yes 05/04/2025 8:00 AM EDT Petros Estrada RN STOP-Bang Total Score 7 04/29/2025 6:48 PM EDT Chuyita Kim RN Recent BMI (Calculated) 74.7 05/04/2025 8:00 A M EDT Petros Smith RN * Date of PT Session Question Answer Entry Date Author PT Initials [facility] 05/17/2025 11:56 AM Corey Garza IV Date of PT Session [id number] 05/17/2025 11:56 AM Corey Durham IV * HARK Concern Calculation Answer Entry Date Author 1 04/28/2025 1:40 PM EDT Anna Marie Apodaca RN * Food Insecurity Concern Calculation Answer Entry Date Author 1 04/28/2025 1:40 PM EDT Anna Marie Apodaca RN * Transportation Needs Concern Calculation Answer Entry Date Author 1 04/28/2025 1:40 PM EDT Anna Marie Apodaca RN * Housing Stability Concern Calculation Answer Entry Date Author 1 04/28/2025 1:40 PM EDT Anna Marie Apodaca RN * Utilities Concern Calculation Answer Entry Date Author 1 04/28/2025 1:40 PM EDT Anna Marie Apodaca RN * Calculated C-SSRS Risk Score (Lifetime/Recent) Answer Entry Date Author No Risk Indicated 05/18/2025 8:00 AM Kylee Ravi RN * [place] Coma Scale Question Answer Entry Date Author Best Eye Response Spontaneous 05/18/2025 8:00 AM Kylee Ravi RN Best Verbal Response Oriented 05/18/2025 8:00 AM Kylee Rg RN Best Motor Response Follows commands 05/18/2025 8:00 A M Klyee Ravi RN Shelley Coma Scale Score 15 05/18/2025 8:00 AM Kylee Ravi RN * Restart Pain Assessment Timer Answer Entry Date Author Yes 05/18/2025 9:06 AM Stephie Ravi RN * LISA 1 Fall Risk Factor Assessment Question Answer Entry Date Author Presented to ED because of fall 0 04/27/2025 9:42 PM EDT Stella Daniels RN Age > 70 0 04/27/2025 9:42 PM EDT Stella Daniels RN Intoxicated with alcohol or substance confusion 0 04/27/2025 9:42 PM EDT Stella Daniels RN Ambulates or transfers with assistive devices or assist 1 04/27/2025 9:42 PM EDT Stella Daniels RN Unable to ambulate or transfer 0 04/27/2025 9:42 PM EDT Stella Daniels RN Nursing judgement 1 04/27/2025 9:4 2 PM EDT Stella Daniels RN KINDER 1 Fall Risk Score 2 025 9:42 PM EDT Stella Daniels RN High Fall Risk Interventions for Scores 1 and above Fall risk bundle components in place as defined below 04/27/2025 9:42 PM EDT Stella Daniels RN * Enhanced Neuro Checks Question Answer Entry Date Author Speech/Language Clear 05/15/2025 4:20 AM Florina Caicedo, RN * [place] Suicide Severity Rating Scale Question Answer Entry Date Author Is patient awake, alert, and able to answer questions appropriately? Yes 04/29/2025 4:37 AM EDT Britt Cavazos, RN * Patient Belongings Placed in Locker Question Answer Entry Date Author Belongings placed in Locker None 04/27/2025 10 :46 PM EDT Stella Daniels, LOLA Medical Equipment Cane 04/27/2025 10:46 PM EDT Stella Daniels, LOLA * EXAMINER OF CURRENCY Information Question Answer Entry Date Author Mode of Arrival Private Vehicle 04/27/2025 7:19 PM EDT Francisco Javier Hansen, RN * HEENT Question Answer Entry Date Author ANAND (FRANCISCA) WDJeane 04/29/2025 7:54 AM EDT Marian Dailey, RN * Peripheral Vascular Question Answer Entry Date Author Peripheral Vascular (WDL) X 04/29/2025 7:54 AM EDMarian Bridges RN * Quick Updates Question Answer Entry Date Author Quick Updates - Free Text report called and given to 10-117 RN @ this time; bed ready; transport here 04/29/2025 6:39 PM LOGANT Marian Salmon RN * Weight in (lb) to have BMI = 25 Answer Entry Date Author 183.9 04/27/2025 10:46 PM Stella Correa RN * BMI (Calculated) Answer Entry Date Author 74.8 05/18/2025 5:06 AM Gualberto Atwood RN * Percent Excess Weight Loss Answer Entry Date Author 0 04/27/2025 10:46 PM Stella Correa RN * Weight Change Since Preop Answer Entry Date Author 249.5 05/18/2025 5:06 AM Gualberto Atwood RN * Initial Excess Weight Answer Entry Date Author -80.74 04/27/2025 10:46 PM Stella Correa RN * IBW in kg (Bariatric) Answer Entry Date Author 80.74 04/27/2025 10:46 PM Stella Correa RN * IBW in lb (Bariatric) Answer Entry Date Author 178 04/27/2025 10:46 PM Stella Correa RN * Weight Change Since Last Visit Answer Entry Date Author 0.4 05/18/2025 5:06 AM Gualberto Atwood RN * Percent of IBW Answer Entry Date Author 339.61 04/27/2025 10:46 PM Stella Correa RN * EBW (kg) Answer Entry Date Author 193.4 04/27/2025 10:46 PM Stella Correa RN * EBW (lb) Answer Entry Date Author 426.5 04/27/2025 10:46 PM Stella Correa RN * Difference in Weight Since Last Visit Answer Entry Date Author 0.4 05/18/2025 5:06 AM Gualberto Atwood RN * Housing Circumstances-Z Codes Question Answer Entry Date Author Housing Circumstances (select all that apply) Low Income (101-300% Federal Poverty Guidlines) - Z596 04/28/2025 1:00 PM EDT Mayra Apodaca RN * Clinical Progression Answer Entry Date Author Gradually improving 05/17/2025 10:28 PM Ivan Atwood RN * Anthropometrics Question Answer Entry Date Author Weight Change 0.16 05/18/2025 5:06 AM Ivan Atwood RN * Temp (in Celsius) for [place] IV Answer Entry Date Author 36.5 05/18/2025 7:34 AM EST Char Hinojosa CNA * Pain Assessment Question Answer Entry Date Author Pain Location Back 05/18/2025 9:06 AM Kylee Ravi RN Pain Orientation Lower 05/18/2025 9:06 AM Kylee Ravi RN Pain Radiating Towards down back of both legs 8:14 AM LOGANT Tamar Lynn RN Pain Descriptors Discomfort 05/18/2025 9:06 AM Kylee Ravi RN Pain Onset Ongoing 05/18/2025 9:06 AM Kylee Ravi RN Pain Frequency Constant/continuous 05/18/2025 9 :06 AM Kylee Ravi RN Patient's Stated Pain Goal 3 05/18/2025 9:06 AM Kylee Ravi RN Patient is asleep Yes, assume pain is decreased 05/18/2025 9:06 AM Kylee Ravi RN Pain Type Chronic pain 05/18/2025 9:06 AM Kylee Ravi RN Pain Assessment 0-10 (Adult DVPRS/Pe ds 0-10) 05/18/2025 9:06 AM Kylee Ravi RN * Time-Out Question Answer Entry Date Author Pre-Meds Ordered/Given Not applicable 8:07 AM Kylee Ravi RN Name of Provider Performing Procedure Kylee Gonzalez RN 05/18/2025 8:07 AM Santy Antonio RN Correct Patient Yes 05/18/2025 8:07 AM Kylee Ravi RN Correct Site Yes 05/18/2025 8:07 AM Kylee Ravi RN Site Marked Not applicable 05/18/2025 8:07 AM Kylee Ravi RN Correct Side Yes 05/18/2025 8:07 AM Kylee Ravi RN Correct Patient Position Yes 025 8:07 AM Kylee Ravi RN What Procedure? Central/PICC line removal 05/18/2025 8:07 AM Kylee Ravi RN Correct Procedure Yes 05/18/2025 8:0 7 AM Kylee Ravi RN Antibiotics Ordered/Given Not applicable 2024 8:07 AM Kylee Ravi RN Consents Verified? Yes 05/18/2025 8: 07 AM Kylee Ravi RN Rad Studies Available? Not applicable 8:07 AM Kylee Ravi RN Lab Results Available? Not applicable 8:07 AM Kylee Ravi RN Safety Precautions Reviewed? Yes 05/18/2025 8:07 AM Kylee Ravi RN * Constipation Question Answer Entry Date Author Constipation Precipitating Factors Disease related;Medication (Iron supplements, opioids, antidepressants, etc.);Diet;Surgery 05/11/2025 4:30 PM EDT Tamar Lynn RN Problems with Passing Stool Incomplete passage of stool 05/11/2025 4:30 PM EDT Tamar Lynn RN Current Interventions Stool Softener 05/11/2025 4:30 PM EDT Tamar Lynn RN * Dexmedetomidine Question Answer Entry Date Author Volume (mL) Dexmedetomidine 0 05/03/2025 12 :44 PM EDT Kindra Cardoza RN * Nutrition Question Answer Entry Date Author Diet Supplements Kyree Packet 05/14/2025 8:45 PM Florina Johnson RN Diet Type Regular;Consistent C arb 2 05/18/2025 8:00 AM Kylee Ravi RN Feeding Able to feed self 05/18/2025 8:00 AM Kylee Ravi RN Appetite Good 05/18/2025 8:00 AM Kylee Kendrick RN * IBW/kg (Calculated) Answer Entry Date Author 77.6 04/27/2025 10:46 PM EDT Stella Daniels RN * Adult Low Range Vt 6mL/kg Answer Entry Date Author 465.6 04/27/2025 10:46 PM EDT Stella Daniels RN * Adult Moderate Range Vt 8mL/kg Answer Entry Date Author 620.8 04/27/2025 10:46 PM EDT Stella Daniels RN * Adult High Range Vt 10mL/kg Answer Entry Date Author 776 04/27/2025 10:46 PM EDT Stella Daniels RN * Respiratory Interventions Question Answer Entry Date Author Respiratory Interventions Cough and deep breathing 05/18/2025 8:00 AM Kylee Ravi RN * Cough and Deep Breathe Question Answer Entry Date Author Cough And Deep Breathing done independently per patient 05/18/2025 8:00 AM Kylee Ravi RN * Incentive Spirometry Question Answer Entry Date Author Administration (IS) education provided 05/13/2025 8:00 PM EDT Asiya Nix RN * Patient Belongings at Bedside Question Answer Entry Date Author Belongings at Bedside Retained by johann conklin and/or family/legal outside medical sales representative who assumes responsibility 05/04/2025 8:00 AM EDT Petros Smith RN * Patient Belongings Sent to Safe/Security Question Answer Entry Date Author Belongings Sent to Safe/Security None 05/04/20 8:00 AM EDT Petros Smith RN * Integumentary Question Answer Entry Date Author Skin Color Red 05/18/2025 8:00 AM Kylee Ravi RN Skin Condition/Temp Dry;Warm;Flaky 05/18/2025 8 :00 AM Kylee Ravi RN Skin Integrity Excoriation;Redness; Sca ling 05/18/2025 8:00 AM Kylee Ravi RN Skin Turgor Non-tenting 05/18/2025 8:00 AM Kylee Ravi RN 4 Eyes Skin Assessment Completed Yes 04/29/2025 7:00 PM EDT Chuyita Kim RN Manual Dual Sign Off 2nd RN Tiffani DAVILA 04/12 7:00 PM EDT Chuyita Kim RN Skin Tone Light 05/05/2025 4:00 PM EDT Nitza Mishra RN Bruising Characteristics Generalized 025 8:00 AM Kylee Ravi RN Integumentary (WDL) X 05/18/2025 8 :00 AM Kylee Ravi RN Redness Location Groin, abdomen, coccyx 05/18/20 8:00 AM Kylee Ravi RN Redness Characteristics MASD 05/18/20 8:00 AM Kylee Ravi RN Scaling Location BLE 05/18/2025 8:00 AM Kylee Ravi RN Scaling Characteristics Dry, flakey, jairo 05/18 8:00 AM Kylee Ravi RN * Patient Medications Question Answer Entry Date Author Medications brought by patient? Yes 05/12/2025 3:04 PM EDT Nisha Jiménez, PharmD * Patient Belongings Sent Home Question Answer Entry Date Author Belongings Sent Home Clothing;Electronic devices 05/18/2025 11:00 AM Kylee Ravi RN Patient Electronics Cell phone 05/18/2025 1 1:00 AM Kylee Ravi RN * Pain Score Answer Entry Date Author 7 05/18/2025 9:06 AM Stephie Ravi RN * Score Answer Entry Date Author 29.21 05/18/2025 11:48 AM Josse Cota * Confusion Assessment Method (CAM) Question Answer Entry Date Author Acute Onset and Fluctuating Course (1A) No 05/18/2025 8:00 AM Kylee Ravi RN * Feature 3: Altered Level of Consciousness Answer Entry Date Author Negative 05/18/2025 8:00 AM Stephie Ravi RN * Sedation Scales Question Answer Entry Date Author Sedation Scale Used Crews Agitation Sedation Scale 05/18/2025 8:00 AM Kylee Ravi RN RASS 0 05/18/2025 8:00 AM Kylee Ravi RN Pasero Opioid-Induced Sedation Scale (POSS) 1 05/18/2025 8:00 AM Kylee Ravi RN * Urine Output/Assessment Question Answer Entry Date Author Urine 1100 05/04/2025 3:[address] RN Urine Amount Large 05/07/2025 9:00 PM EDT Judd Ignacio RN * Stool Output/Assessment Question Answer Entry Date Author Most Recent BM Date 35342 05/18/2025 9:00 AM Kylee Reynaga RN * Fall Risk Calculated Score Answer Entry Date Author Merissa Falcon 05/18/2025 8:00 AM Stephie Ravi RN * Patient Specific Goals Question Answer Entry Date Author Patient/Family-Specific Goals (Include Timeframe) Pt will remain free from falls/injury throughout this shift. 05/18/2025 9:00 AM Kylee Ravi RN Individualized Care Needs Safety 2024 9:00 AM Kylee Ravi RN Anxieties, Fears or Concerns None stated 05/18/2025 9:00 AM Kylee Ravi RN * Able to Complete Psychiatric Screening Question Answer Entry Date Author Were you able to complete al l the behavioral health screenings? Yes 04/29/2025 6:00 PM EDT Chuyita Kim RN * Delirium Assessment Question Answer Entry Date Author Delirium Prevention & Management Yes 05/18/2025 8:00 AM Kylee Ravi RN Delirium Prevention & Management: Early Mobility Ambulate to extent of patient's ability;Educate patient and family about the benfits of early mobility in the hospital 05/18/2025 8:00 AM Kylee Ravi RN Delirium Prevention & Management: Cognitive Engagement Familiar objects from home provided;Emotional support provided;Optimize pain and other medication management;Reorienting communication;Environmen nicko consistency promoted 05/18/2025 8:00 AM Kylee Ravi RN Delirium Prevention & Management: Optimize Sleep/Wake Cycles Calming techniques provided;Cluster care to decrease awakenings;Educate patient and family about optimizing sleep 05/18/2025 8:00 AM Kylee Ravi RN Delirium Scale Used Confusion Assessment Method 05/18/2025 8:00 AM EST Kylee Gonzalez RN * Assume Pain is Present Answer Entry Date Author No 05/10/2025 2:13 PM EDT Rodrick Lynn RN * Follow Up Question Answer Entry Date Author [place] [address] 05/16/2025 11:39 AM EST Kylee Ann, RD * Deterioration Index Score Question Answer Entry Date Author Deterioration Index Score 29.45 05/18/2025 11:3 1 AM EST Chronicles, [facility] * Unplanned Readmission Scores Question Answer Entry Date Author Unplanned Readmission Score 29.42 05/18/2025 8: 01 AM EST Chronicles, [facility] * PRN Medication Given Reason Answer Entry Date Author pain 05/17/2025 10:28 PM EST Jose Slaughter RN * Malnutrition Screening Tool (MST) Question Answer Entry Date Author Have you recently lost weigh t without trying? 0 05/04/2025 8:00 AM EDT Petros Smith RN Have you been eating poorly because of a decreased appetite? 0 05/04/2025 8:00 AM EDT Petros Estrada RN * Weight Loss Score Answer Entry Date Author 0 05/04/2025 8:00 AM EDT Carolynn Smith RN * Malnutrition Score Answer Entry Date Author 0 05/04/2025 8:00 AM EDT Carolynn Smith RN * Discharge Medication Bedside Delivery Question Answer Entry Date Author Meds to Beds Complete? Yes 7:03 AM Jessica Alvarez PharmD Current Status Discharge to Facility-M2B Service Not Available 05/17/2025 7:03 AM Jessica Alvarez, CharityD Is the patient interested in Medication Bedside Delivery at Discharge? No 05/17/2025 7:03 AM EST Sebastián Lowery CPhT * [place] Coma Scale Numeric Answer Entry Date Author 15 05/18/2025 8:00 AM EST Stephie Gonzalez RN * Hyperglycemia Management Answer Entry Date Author blood glucose monitored 05/16/2025 7:49 PM EST Ivan Wynn RN * Hypoglycemia Management Answer Entry Date Author blood glucose monitored 05/15/2025 11:48 AM EST Santy Garcia RN * Sub-Acute last PAC response Answer Entry Date Author accept 05/19/2025 9:02 AM EST [facility] , [facility] * Sub-Acute Staus Answer Entry Date Author placed & closed 05/19/2025 9:02 AM EST [facility] , [facility] * Sub-Acute Referral Sent to Answer Entry Date Author Merly Espinoza 05/19/2025 9:02 AM EST Interfac e, [facility] * Heel protectors task - custom formula Answer Entry Date Author 1 05/06/2025 6:00 AM EDT Judd Zavaleta RN * Elevate heels task - custom formula Answer Entry Date Author 1 05/17/2025 8:00 PM EST Gualberto Slaughter RN * Neurological Question Answer Entry Date Author Neuro Pertinent Negatives Alert and oriented x 4;Speech clear 04/28/2025 3:00 AM EDT Stella Daniels RN Neuro (WDL) WDL 04/28/2025 3:00 AM EDT Stella Daniels RN * Cardiac Question Answer Entry Date Author Cardiac Regularity Regular 04/28/2025 3:00 AM EDT Stella Daniels RN * Musculoskeletal Question Answer Entry Date Author Musculoskeletal (WDL) X 04/27/2025 9:45 PM EDT Stella Daniels RN * Vitals Timer Question Answer Entry Date Author Update Vitals Alert Interval 240 04/27/2025 11:00 PM EDT Stella Daniels RN Restart Vitals Timer Yes 05/18/2025 7:[address] Interface, Doc Flowsheet In Restart Vitals Timer Yes 04/29/2025 6:00 AM E DT Brown, Abygail L * Respiratory Assessment Question Answer Entry Date Author Respiratory (WDL) X 05/01/2025 9:10 AM EDT Jada Ring, LOLA * Integumentary Question Answer Entry Date Author Integumentary (WDL) X 05/01/2025 9:10 AM ED T Jada Ring, LOLA * Modified Yana Question Answer Entry Date Author Activity 2 05/01/2025 9:40 AM EDT Jada Cummins, RN Respiration 2 05/01/2025 9:40 AM EDT Jada Cummins RN Hemodynamic Stability 2 05/01/2025 9:40 AM EDT Jada Ring RN Consciousness 2 05/01/2025 9:40 AM EDT Jada Chavez RN Oxygen Saturation 2 05/01/2025 9:40 AM EDT Jada Ring RN Modified Yana Score 14 05/01/2025 9:40 AM EDT Jada Ring RN Pain 2 05/01/2025 9:40 AM EDT Jada Cummins RN Emetic Symptoms 2 05/01/2025 9:40 AM EDT Jada Cummins, LOLA * Postprocedure Normothermia Interventions Question Answer Entry Date Author [place] Applied Yes 05/01/2025 9:29 AM EDT Jada Cummins RN Is the patient normothermic? Yes 05/01/2025 9 :29 AM EDT Jada Ring, LOLA * Hourly Rounding Question Answer Entry Date Author Activity Assistance Held 04/29/2025 6 :48 AM EDT Britt Helms RN Toileting Catheter 04/29/2025 6:48 AM EDT Britt Helms, LOLA Call Light Call light present a nd within reach;Oriented to call light 04/29/2025 4:35 AM EDT Britt Helms RN Rest/ Sleep Awake 04/29/2025 6:48 AM EDT Britt Helms RN Rest/ Sleep Enhancement Care clustered t o minimize awakenings 04/29/2025 6:48 AM EDT Britt Helms, LOLA Completed Hourly Rounding Yes 2024 6:31 PM EDT Marian Salmon RN Plan of Care Reviewed With Patient;Family 04/29/2025 6:48 AM EDT Britt Helms, RN * Non- Lethal Alarms Question Answer Entry Date Author Non-Lethal/Regular Alarms Other (Comment) 2024 12:40 PM EDT Chintan Banks * Communication Question Answer Entry Date Author Floor Staff Notification Method Secure chat 05/12/2025 12:40 PM EDT Chintan Banks Monitoring staff Called Edwaro r Staff Nurse 05/12/2025 12:40 PM EDT Schonhoff, Chintan C * Elopement Risk Screen Question Answer Entry Date Author Does the patient exhibit any of the following behaviors? No 05/18/2025 8:00 AM Kylee Ravi RN Does the patient have a cour t ordered legal guardian? No 05/18/2025 8:00 AM Kylee Ravi RN * Participants in Care Question Answer Entry Date Author Greenhouse Technician N/A 05/17/2025 11:56 AM Corey Garza IV * Cognition Question Answer Entry Date Author Orientation Level Oriented X4 05/12/2025 12:32 PM EDT Mike Isiah * C-SSRS (Frequent Screener) Question Answer Entry Date Author Is patient awake, alert, and able/willing to answer questions appropriately? Yes 05/18/2025 8:00 AM Kylee Ravi RN 1. Wish to be (Past 1 Month) No 025 8:00 AM Kylee Ravi RN 2. Non-Specific Active Suici jonny Thoughts (Past 1 Month) No 05/18/2025 8:00 AM Kylee Ravi RN 6. Suicidal Behavior (Lifetime) No 8:00 AM Kylee Ravi RN * Discharge Planning Continued Question Answer Entry Date Author Transportation Home at Discharge Medical Transport 05/18/2025 8:00 AM Chayo Gordon RN * [facility] 6-Clicks Mobility Assessment Question Answer Entry Date Author Difficulty patient has turni ng over in bed (including adjusting bedclothes, sheets, and blankets)? 3 05/17/2025 11:56 AM Alverto Burr am IV Difficulty patient has sitti ng down on and standing up from a chair with arms (wheelchair, bedside commode, etc.)? 2 05/17/2025 11:56 AM Gigi Burr IV Difficulty patient has movin g from lying on back to sitting on the side of the bed? 3 05/17/2025 11:56 AM Kike Burr IV How much help does the patie nt need moving to and from a bed to a chair (including a wheelchair)? 1 05/17/2025 11:56 AM Alverto Burr am IV How much help does the patie nt need to walk in hospital room? 1 05/17/2025 11:56 AM BEAU Michellelouise velizCorey IV How much help does the patie nt need climbing 3-5 steps with a railing? 1 05/17/2025 11:56 AM BEAU MartinezLizarragaAlverto am, IV [facility] 6-Clicks Mobility Assessment Total 11 05/17/2025 11:56 AM Alverto Burr am, IV documented in this encounter Medications at Time [...] 5 tablet 05/17/2025 Insulin Pen Needle (Pen [place]) 31G X 5 MM [facility] USE TO INJECT INSULIN 3 TIMES PER [...] capsule by mouth daily. 05/10/2018 HYDROcodone-acetami nophen ([place]) 10-325 MG tablet Take 1 tablet by [...] Care Goal: Plan of Care Review 05/18/2025 1131 by Kylee Gonzalez RN Outcome: Ongoing, Progressing Flowsheets Taken 05/18/2025 1131 by Kylee Gonzalez RN Progress: improving Taken 05/17/2025 2153 by Ivan Slaughter RN Plan of Care Reviewed With: patient Taken 05/14/20256 by Florina Hinojosa RN Outcome Evaluation: Reviewed of night plan of care with pt. pt verbalized understanding. 05/18/2025 1130 by Kylee Gonzalez RN Outcome: Ongoing, Progressing Flowsheets Taken 05/17/2025 2153 by Ivan Slaughter RN Progress: improving Plan [...] Comfort and Wellbeing 05/18/2025 113 by Kylee Gonzalez RN Outcome: [...] Intervention: Optimize Glycemic Control Flowsheets (Taken 05/16/2025 194 by Ivan Slaughter RN) Hyperglycemia Management: blood glucose monitored Goal: [...] Desired Range 05/18/2025 1131 by Kylee Gonzalez, LOLA Outcome: Ongoing, Progressing 05/18/2025 1130 by Kylee Gonzalez RN Outcome: Ongoing, Progressing Goal: Maintenance of Osteoarthritis Symptom Control 05/18/2025 1131 by Kylee Gonzalez, RN Outcome: Ongoing, Progressing 05/18/2025 1130 by Kylee Gonzalez, LOLA Outcome: Ongoing, Progressing Goal: Bariatric Home Regimen [...] provided Taken 05/17/2025 2228 by Ivan Slaughter RNservice associate Interventions: medication (see MAR) Goal: Optimal Wound [...] per tolerance previous patient education reinforced Taken 05/17/2025 215 by Ivan Slaughter RN Pressure Reduction Techniques: [...] Activities of Daily Living 05/18/2025 1131 by Klyee Gonzalez RN Outcome: Ongoing, Progressing 05/18/2025 1130 by Kylee Gonzalez RN Outcome: Ongoing, Progressing Intervention: Promote Activity and Functional Greenlee Flowsheets Taken 05/18/2025 1131 by Kylee Gonzalez [...] DO PCP name and Address: Malcolm Hayward, ACCOUNTING FILE CLERK [address] [facility] [place] [id number] Brief History of Present Illness 49 M [...] controlled, this could bereduced further. Urology for Rios exchanges if indicated Wound vac to R [...] extremity. He was accepted for discharge to [facility] rehab facility. Urinary Retention and Recurrent UTI He had chronic urinary retention managed with an indwelling Rios catheter and recurrent UTIs, including recent ESBL E. coli treated prior to admission. Urology was consulted for ongoing retention, and finasteride was added during admission; tamsulosin was continued. No urologic intervention was indicated during admission, and outpatient follow-up with urologist planned. Rios exchanges recommended every 4-6 weeks. Morbid Obesity [...] He was medically stable for discharge to [facility] rehab facility, with recommendations for close follow-up [...] HYDROcodone-acetaminophen 10-325 MG tablet Commonly known as: [place] Take 1 tablet by mouth every 6 [...] the skin 1 time per week. Pen [place] 31G X 5 MM misc USE TO [...] Your Medications These medications were sent to [facility] [place] [address] [place] [address] gabapentin 600 MG tablet HYDROcodone-acetaminophen 10-325 MG tablet insulin regular 100 UNIT/ML injection vial insulin regular 500 UNIT/ML CONCENTRATED injection vial Information about where to get these medications is not yet available Ask your nurse or doctor about these medications ferrous sulfate 324 MG tablet delayed-release Discharge Diagnosis Medical Problems Active and Resolved Hospital Problems Hospital Morbid obesity ([facility]) Hypertension Type 2 diabetes Overview Signed 04/14/2022 [...] Department Center 05/18/2025 9:30 AM [facility] 05/30/2025 2:40 PM She[facility] Marcano [facility] 06/14/2025 1:40 PM Divine Archer, ADALGISA ENDOTFBNBR [facility] 06/22/2025 1:40 PM Mary Vicente MD [facility] Pertinent Physical Exam At Time of Discharge Physical Exam General: NAD HEENT: NC/AT, EOMI Heart: regular Lungs: nonlabored Abdomen: soft, nd, nt Ext: mild edema Skin: warm, dry Psych: good eye contact Neuro: A&Ox3, moves all ext : Rios Discharge Disposition/Condition Disposition: Rehab facility (specify) Condition: Stable (s/sx potential problems absent or manageable) I spent >30 minutes of patient care and instruction time in preparation for this discharge. * Progress Notes - Chayo Jennings RN - 05/18/2025 9:10 AM EST Case Management Discharge Note Gonzalo Smalls 49 y.o. 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 Caregiver: Self Assistance Available at Discharge: Availability of Care Givers (#Hours): 24 hours Housing Circumstances-Z Codes: Housing Circumstances (select all that apply): Low Income (101-300% Federal Poverty Guidlines) - Z596 Discharge Facility/Level of Care Needs: Discharge Facility/Level of Care Needs: 62-Rehab facilty ([facility]) Patient's Choice of Community Agency(s): Patient's Choice of Community Agency(s): [facility] Patient/Family Anticipated Services at Transition: Patient/Family Anticipated [...] Recieved By: Gonzalo Smalls- the patient Follow-up: [facility] [address] [facility] 5th Floor [address], [address] [facility] [id number] Primary care provider (PCP) Malcolm Hayward, ACCOUNTING FILE CLERK [address] [facility] [address] Discharge Transportation: Transportation Anticipated: medical transport Transportation Home at Discharge: Medical Transport Has discharge transport been arranged?: Yes What day is the transport expected?: 05/18/25 What time is the transport expected?: 0930 Follow Up Transport: Transportation Needed to Follow up Appoinments: Family/Friend will Provide Additional Comments: Discussed with multids[facility] team, per attending phyisician dr. Goyal pt is medically ready to d/c. Pt was referred and accepted by Merly Espinoza RN CM spoke with Araceli in admission who confirmed pt's acceptance #[phone]. Pt updated and in agreement with d/c plan. Team and bedside RN updated. Bedside RN to call report to #[phone]. Araceli has access to [employer] and will get d/c s [facility] that way. [facility] [place] to transport the pt [...] Mobility Bed Mobility Exam: Scooting/Bridging Level of Greenlee: Contact guard Physical/Nonphysical Assist: Verbal Cues, Minimal cues Assistive Device: Overhead trapeze Bed Mobility Exam: Supine to Sit Level of Greenlee: Minimum assist (75% patient's effort) Physical/Nonphysical Assist: HOB elevated, Verbal Cues, Minimal cues Assistive Device: Overhead trapeze Bed Mobility Exam: Sit to Supine Level of Greenlee: Stand-by assist Physical/Nonphysical Assist: Verbal Cues, Minimal cues Assistive Device: Overhead trapeze Transfers Transfer Exam: Sit to stand Level of Greenlee: Maximum assist (25% patient's effort) Physical/Nonphysical Assist: Verbal Cues, Nonverbal cues (demo/gestures), Additional assist utilized for safety, Set-up required, Minimal cues Assistive Device: Walker, rolling (bariatric) Transfer Exam: Stand to Sit Level of Greenlee: Maximum assist (25% patient's effort) Physical/Nonphysical Assist: [...] help from Spouse Level of Mobility Mobility Greenlee Independent gait with device History of Falls [...] go, I'm just nervous. Visitors Present No Greenhouse Technician (if applicable) Greenhouse Technician: Not Applicable OBJECTIVE PAIN Pt was without c/o pain at the beginning of this session and throughout the PT treatment. Prior to EXAMINER OF CURRENCY's departure: * rest was provided * patient [...] by this therapist: BED MOBILITY Level of Greenlee Physical/Non- physical Assist Adaptive Equipment Utilized Rolling/ Turning Contact guard Verbal Cues, Set-up required, Minimal cues Bed rails, Other (DEFENSE ANALYST) Scooting/ Bridging Contact guard Verbal Cues, Minimal [...] breaks between standing trials. TRANSFERS Level of Greenlee Physical/Non- physical Assist Adaptive Equipment Utilized Sit [...] placement, sequencing, weight shifting, appropriate use of DEFENSE ANALYST, and maintaining NWB on RLE. Tactile cues provided to assist in sequencing and weight shifting. AMBULATION Level of Greenlee Distance Adaptive Equipment Utilized Ambulation N/A N/A N/A Comments Unable to side step or progress to forward hop step at bariatric RW level due to inabilityto maintain prolonged standing position while maintaining NWB in RLE. BALANCE Postural Appearance Posture: Within Functional Limits, Forward head Level of Greenlee Balance Support Activities Static Sit Standby assist [...] Abduction * Ankle pumps x1-2 sec holds EXAMINER OF CURRENCY provided minimal verbal and tactile cueing to [...] overall. Standardized Assessments Standardized Assessments Standardized Assessments: [facility] 6-Clicks Mobility Assessment [facility] 6-Clicks Mobility Assessment Difficulty patient has turning [...] climbing 3-5 steps with a railing?: Unable [facility] 6-Clicks Mobility Assessment Total : 11 PATIENT / FAMILY EDUCATION Patient was educated regarding the PT POC and recommendations regarding discharge planning, as wellas progressively increased time spent out of bed/up to chair, and continued mobilization / ambulation with nursing staff as tolerated to promote increased activity tolerance and Endurance. EXAMINER OF CURRENCY providing verbal cues/demonstration for pursed-lip breathing technique to promote improved ventilation, decreased respiratory rate and energy conservation with activity. EXAMINER OF CURRENCY stressed to patient the importance of having [...] for dc to rehab tomorrow w indwelling Rios; plans to see urology outpatient. Occasionally requiring [...] contact Neuro: A&Ox3, moves all ext : Rios Assessment & Plan Diabetic foot ulcer Morbid [...] home Ozempic, patient supplied Urinary retention s/p rios - HX several months worsening progressive urinary retention since was hospitalized for abdominal infection which has been following with urology outpatient at [facility]. They have postulated this to be related to his diabetes and have had several voiding trials which have failed. Also has un dergone proctoscopy (?) which was normal - PSA WNL 05/06 - Continue home Flomax, finasteride - Urology consulted, indwelling Rios with exchanges every 4-6 weeks for chronic [...] Prevent or Manage Pain Flowsheets Taken 05/16/2025 by Ivan Slaughter RN Sleep/Rest Enhancement: awakenings minimized regular sleep/rest pattern promoted Taken 05/06/20251999 by Judd Zavaleta RN Medication Review/Management: medications reviewed Problem: Self-Care Deficit Goal: Improved Ability to Complete Activities of Daily Living Outcome: Ongoing, Progressing Intervention: Promote Activity and Functional Greenlee Flowsheets Taken 05/16/20251999 by Ivan Slaughter RN Activity Assistance Provided: assistance, 1 person Taken 05/16/20251948 by Ivan Slaughter RN Self-Care Promotion: independence encouraged Taken 05/15/2025 1148 by Santy Garcia, RN Adaptive Equipment Use: used independently * Progress Notes - Sugey Momin, ADALGISA - 05/17/2025 10:29 AM EST Endocrine - [...] See 24 hour update Wearing CGM Genitourinary: Rios in place Skin: Positive for wound (bilateral [...] respiratory distress. Comments: Nasal cannula Genitourinary: Comments: Rios Musculoskeletal: General: No swelling. Skin: General: Skin [...] for recurrent UTI and has a chronic Rios. Per chart review it appears that the [...] infection prevention in post surgical setting #UTI -rios in place #Class III obesity -BMI 74 [...] -Diabetes education: completed 05/10 -Follow-up plan: home outside medical sales representative - Dr Anette Kendall -Tentative discharge recommendations: [...] at $35 per vial. Also discussed contacting [facility] directly for the financial assistance program. -hopefully [...] team via secure chat or page us [phone] during 7a-7p, Thursday-Thursday. For after hours please [...] Ongoing, Progressing Intervention: Promote Activity and Functional Greenlee Flowsheets (Taken 05/16/20251948) Self-Care Promotion: independence encouraged * Progress Notes - Chayo Jennings RN - 05/16/2025 2:16 PM EST Case Management Adult Progress Note Gonzalo Smalls 49 y.o. male CSN: [id number] Admission: 04/27/2025 9:29 PM Primary Problem: Diabetic foot ulcer Anticipated Discharge Date: 05/18/25 Pt is in a need for rehab placement and was referred and accepted by Merly Espinoza- LOLA CM spoke with Araceli in admission, ph#[phone] who confirmed pts acceptance. Pt updated and [...] Note Gonzalo Smalls 49 y.o. male CSN: [id number] This is a 49 y.o. male patient was admitted to [facility] with the diagnosis of Diabetic Foot [...] Hayward APRN, [facility] is Dr. Garvey in [place], [place]. 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 Foot care and inspection, Diabetes Education Team Recommendations: DM education completed. All questions answered. Pt feels comfortable d/c home with u-500 regimen. Discussed making sure to get back in with endo once d/c fromrehab. Education Time 15 minutes Vivian Gacria, RN * Progress Notes - Wily Goyal Rodrick, DO - 05/16/2025 11:09 AM EST Subjective Patient denies acute complaints or concerns. He has a Rios in and plans to see urology outpatient. [...] contact Neuro: A&Ox3, moves all ext : Rios Assessment & Plan Diabetic foot ulcer Morbid [...] / weight - Consults: vascular, ID - S/P [...] home Ozempic, patient supplied Urinary retention s/p rios - HX several months worsening progressive urinary retention since was hospitalized for abdominal infection which has been following with urology outpatient at [facility]. They have postulated this to be related to his diabetes and have had several voiding trials which have failed. Also has un dergone proctoscopy (?) which was normal - PSA WNL 05/06 - Continue home Flomax, finasteride - Urology consulted, idwelling Rios with exchanges every 4-6 weeks for chronic [...] the video go to this web address: [email or web address] Or, scan this QR code with your [...] to gently smooth the nail. Have a clinical systems educator trim your nails if you can't see [...] remove corns, calluses, or warts by yourself. [id number] products can burn or damage your skin. [...] your primary care doctor or by a clinical systems educator. This is a doctor who specializes in foot care. Some diabetes centers have regular foot clinics. Last Reviewed Date: 2024 00:00:00 ?? [id number] [employer] All rights reserved. This information is not intended as a substitute for professional medical care. Always follow your healthcare professional's instructions. * Ruy Baires - Vivian Garcia RN - 05/16/2025 11:06 AM EST Images from the original note were not included. [id number] Inspecting Your Feet (Diabetes) [id number]: Last Reviewed Date: 2024 00:00:00 ?? [id number] [employer] All rights reserved. This information is not intended as a substitute for professional medical care. Always follow your healthcare professional's instructions. * Progress Notes - Aileen Leonardo, ACCOUNTING FILE CLERK - 05/16/2025 8:35 AM EST Endocrine - [...] See 24 hour update Wearing CGM Genitourinary: Rios in place Skin: Positive for wound (bilateral [...] respiratory distress. Comments: Nasal cannula Genitourinary: Comments: Rios Musculoskeletal: General: No swelling. Skin: General: Skin [...] for recurrent UTI and has a chronic Rios. 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 Also discussed contacting [facility] directly for the financial assistance program. -patient with plans to discharge to [facility] once able - need to check with [facility] to see if they are okay with utilizing U500 insulin if patient is able to bring in his own supply Insulin regimen - would like patient to utilize U500 home dosing at [facility] Continue Dexcom G7 CGM Likely continue Ozempic [...] team via secure chat orpage us at [phone] during 7a-7p, Thursday-Thursday. For after hours please contact the on-call Endocrine Fellow. Thank you for the opportunity to participate in this patient's care. - Reviewed notes by primary team and consulting services to determine appropriate plan of care as in the note. - Discussed plan and management with patient and clinical systems educator Time Spent: I personally spent a [...] Note Gonzalo Smalls 49 y.o. male CSN: [id number] Room/Bed 117/117A Nutrition evaluation type: follow-up Reason [...] Weight Evaluation: Extreme Obesity (BMI > 40) [place] Body Weight (kg): 80.9 Percent [place] Body Weight: 311 Adjusted Body Weight (kg): [...] Regular Adult Carbohydrate Restriction: Consistent CHO 2 (1718-0419 Steven, 80 g/meal) Adult Sodium Restriction: 2,000 mg Na Percent Meals Eaten (%): 75-100% of meals Diet Experience and Nutrition History: Diet Education Provided: Will monitor Pertinent home medications: Albuterol, Bumex, Insulin, Metformin, Ozempic, Aldactone Pent[employer]alism needs: Nutrition Focused Physical Exam: Physical exam [...] Care Review Outcome: Ongoing, Progressing Flowsheets (Taken 05/16/202521) Progress: improving Plan of Care Reviewed With: [...] Ongoing, Progressing Intervention: Optimize Mobility Flowsheets (Taken 05/16/2025) Activity Management: activity adjusted per tolerance Assistive [...] Progressing Intervention: Optimize Glycemic Control Flowsheets (Taken 05/16/2025) Hyperglycemia Management: blood glucose monitored Goal: Minimize [...] Outcome: Ongoing, Progressing * Progress Notes - Slein Lee MD - 05/15/2025 4:58 PM EST [...] home Ozempic, patient supplied Urinary retention s/p rios - HX several months worsening progressive urinary retention since was hospitalized for abdominal infection which has been following with urology outpatient at [facility]. They have postulated this to be related to his diabetes and have had several voiding trials which have failed. Also has un dergone proctoscopy (?) which was normal. Started on flomax several weeks EXAMINER OF CURRENCY and this has not beenhelpful. and he were hoping to get a second opinion while here at - [facility] WNL 05/06 - Rios care per protocol - Continue home flomax - Continue finasteride, started 05/06 - Urology consulted, No urologic intervention indicated at this time, recommend continuing indwelling rios with exchanges every 4-6 weeks for chronic [...] CODE Medically Ready for Discharge:Ready now, cardinal carranza denied admission, referred to complex discharge team [...] plan and management with patient. Selin Lee [facility] [employer] Division of [facility] * Care Plan - Santy Garcia RN - 05/15/2025 11:50 AM EST Problem: Skin Injury Risk Increased Goal: Skin Health and Integrity Outcome: Ongoing, Progressing Problem: Adult Inpatient Plan of Care Goal: Plan of Care Review Outcome: Ongoing, Progressing Flowsheets (Taken 05/15/2025 114) Progress: improving Plan of Care Reviewed With: [...] Note Gonzalo Smalls 49 y.o. male CSN: [id number] Admission: 04/27/2025 9:29 PM Primary Problem: Diabetic foot ulcer Anticipated Discharge Date: TBD Pt was referred to many SNF in and out of [place]. Few SNF are considering accepting the pt along with [facility], #[phone]. LOLA TOVAR spoke with Araceli- admission at [facility]. Araceli is stating that she is checking [...] See 24 hour update Wearing CGM Genitourinary: Rios in place Skin: Positive for wound (bilateral [...] respiratory distress. Comments: Nasal cannula Genitourinary: Comments: Rios Musculoskeletal: General: No swelling. Skin: General: Skin [...] (H) 05/13/2025 I reviewed bg tracing in [facility] glucose timeline 05/15/25 ASSESSMENT Hospital Course: [...] for recurrent UTI and has a chronic Rios. 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 #UTI -rios in place #obesity -BMI 81.99 -complicates all [...] U500, small increase to 280 units starting 11 Afternoon/lunch: 80 units U500 Dinner: 270 units [...] -Diabetes education: completed 05/10 -Follow-up plan: home outside medical sales representative - Anette Kendall -Tentative discharge recommendations: -pt will need close monitoring by rehab facility provider as changes in diet and activity level maylead to changes in glycemic patterns and insulin requirement NOTE: -patient reports that once the new year hits, he worries about the cost of U500 insulin --> discussed cost through [employer] - should be able to get vials of U500 at $35 per vial. Also discussed contacting [facility] directly for the financial assistance program. -patient with plans to discharge to [facility] once able - need to check with [facility] to see if they are okay with utilizing U500 insulin if patient is able to bring in his own supply Insulin regimen - would like patient to utilize U500 home dosing at [facility] Continue Dexcom G7 CGM Likely continue Ozempic [...] team via secure chat orpage us at [phone] during 7a-7p, Thursday-Thursday. For after hours please [...] nausea and vomiting. Endocrine: See HPI Genitourinary: Rios catheter in place Skin: Positive for wound. [...] for recurrent UTI and has a chronic Rios. 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 Also discussed contacting [facility] directly for the financial assistance program. -patient with plans to discharge to [facility] once able - need to check with [facility] to see if they are okay with utilizing U500 insulin if patient is able to bring in his own supply Insulin regimen - would like patient to utilize U500 home dosing at [facility] Continue Dexcom G7 CGM Likely continue Ozempic [...] via secure chat or page us at [phone] during 7a-7p, Thursday-Thursday. For after hours please [...] Review Outcome: Ongoing, Progressing Flowsheets (Taken 05/14/2025 09) Progress: improving Plan of Care Reviewed [...] Ongoing, Progressing Intervention: Promote Activity and Functional Greenlee Flowsheets Taken 05/14/2025 0946 Self-Care Promotion: independence encouraged BADL personal objects within reach BADL personal routines maintained meal set-up provided Taken 05/14/2025 0800 Activity Assistance Provided: assistance, stand-by assistance, 2 people Taken 05/13/2025 0931 Adaptive Equipment Use: used independently Problem: Self-Care Deficit Goal: Improved Ability to Complete Activities of Daily Living Outcome: Ongoing, Progressing Intervention: Promote Activity and Functional Greenlee Flowsheets Taken 05/14/2025 0946 Self-Care Promotion: independence [...] home Ozempic, patient supplied Urinary retention s/p rios - HX several months worsening progressive urinary retention since was hospitalized for abdominal infection which has been following with urology outpatient at [facility]. They have postulated this to be related to his diabetes and have had several voiding trials which have failed. Also has un dergone proctoscopy (?) which was normal. Started on flomax several weeks EXAMINER OF CURRENCY and this has not beenhelpful. and he were hoping to get a second opinion while here at - [facility] WNL 05/06 - Rios care per protocol - Continue home flomax - Continue finasteride, started 05/06 - Urology consulted, No urologic intervention indicated at this time, recommend continuing indwelling rios with exchanges every 4-6 weeks for chronic [...] CODE Medically Ready for Discharge:Ready now, cardinal carranza denied admission, referred to complex discharge team [...] plan and management with patient. Selin Lee [employer] Division of [facility] * Care Plan - Asiya Nix RN [...] Ongoing, Progressing Intervention: Promote Activity and Functional Greenlee Flowsheets (Taken 05/13/20251999) Activity Assistance Provided: assistance, [...] nausea and vomiting. Endocrine: See HPI Genitourinary: Rios catheter in place Skin: Positive for wound. [...] for recurrent UTI and has a chronic Rios. 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 Also discussed contacting [facility] directly for the financial assistance program. -patient with plans to discharge to [facility] once able - need to check with [facility] to see if they are okay with utilizing U500 insulin if patient is able to bring in his own supply Insulin regimen - would like patient to utilize U500 home dosing at [facility] Continue Dexcom G7 CGM Likely continue Ozempic [...] via secure chat or page us at [phone] during 7a-7p, Thursday-Thursday. For after hours please [...] Review Outcome: Ongoing, Progressing Flowsheets (Taken 05/13/2025 0931) Progress: improving Plan of Care Reviewed With: [...] Ongoing, Progressing Intervention: Promote Activity and Functional Greenlee Flowsheets Taken 05/13/2025930 Adaptive Equipment Use: used [...] home Ozempic, patient supplied Urinary retention s/p rios - HX several months worsening progressive urinary retention since was hospitalized for abdominal infection which has been following with urology outpatient at [facility]. They have postulated this to be related to his diabetes and have had several voiding trials which have failed. Also has un dergone proctoscopy (?) which was normal. Started on flomax several weeks EXAMINER OF CURRENCY and this has not beenhelpful. and he were hoping to get a second opinion while here at - [facility] WNL 05/06 - Rios care per protocol - Continue home flomax - Continue finasteride, started 05/06 - Urology consulted, No urologic intervention indicated at this time, recommend continuing indwelling rios with exchanges every 4-6 weeks for chronic [...] CODE Medically Ready for Discharge:Ready now, cardinal carranza denied admission, referral sent for swing beds, [...] plan and management with patient. Selin Lee [employer] Division of Hospital [facility] * Care Plan - GenaroHaritha - 05/12/2025 9:30 PM EDT Problem: Skin [...] Ongoing, Progressing Intervention: Promote Activity and Functional Greenlee Flowsheets (Taken 05/12/20252128) Activity Assistance Provided: assistance, 2 people Self-Care Promotion: independence encouraged BADL personal objects within reach BADL personal routines maintained meal set-up provided * Progress Notes - Max Alexander - 05/12/2025 4:32 PM EDT Case Management Adult Progress Note Gonzalo Smalls 49 y.o. male CSN: [id number] Admission: 04/27/2025 9:29 PM Primary Problem: Diabetic foot ulcer Anticipated Discharge Date: TBD Plan of care reviewed with pt's care team; and per MD, pt is medically ready for discharge pending placement. SW sent [facility]. SW will continue to follow-up with pt's MD and care team on their progress and discharge plan. Max Alexander MSW, LOCAL DRIVER Senior Quality Technician/Case Management [facility] * Progress Notes - Selin Lee MD [...] home Ozempic, patient supplied Urinary retention s/p rios - HX several months worsening progressive urinary retention since was hospitalized for abdominal infection which has been following with urology outpatient at [facility]. They have postulated this to be related to his diabetes and have had several voiding trials which have failed. Also has un dergone proctoscopy (?) which was normal. Started on flomax several weeks EXAMINER OF CURRENCY and this has not beenhelpful. and he were hoping to get a second opinion while here at - [facility] WNL 05/06 - Rios care per protocol - Continue home flomax - Continue finasteride, started 05/06 - Urology consulted, No urologic intervention indicated at this time, recommend continuing indwelling rios with exchanges every 4-6 weeks for chronic [...] FULL CODE Medically Ready for Discharge:Ready now, [facility] denied admission, referral sent for [facility] beds, weight might be a barrier to discharge I have independently reviewed and interpreted the labs, vitals[facility]. Current condition is not [...] plan and management with patient. Selin Lee [facility] [employer] Division of Hospital [facility] * Progress Notes - Lynda Choudhury, ADALGISA - 05/12/2025 12:58 PM EDT Endocrine - [...] nausea and vomiting. Endocrine: See HPI Genitourinary: Rios catheter in place Skin: Positive for wound. [...] for recurrent UTI and has a chronic Rios. 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 Also discussed contacting [facility] directly for the financial assistance program. -patient with plans to discharge to [facility] once able - need to check with [facility] to see if they are okay with utilizing U500 insulin if patient is able to bring in his own supply Insulin regimen - would like patient to utilize U500 home dosing at [facility] Continue Dexcom G7 CGM Likely continue Ozempic [...] via secure chat or page us at [phone] during 7a-7p, Thursday-Thursday. For after hours please [...] remission, Anxiety disorder, unspecified, Arthritis, Atrial fibrillation ([facility]/HCC), CAP (community acquired pneumonia) (05/19/2024), Cellulitis (05/19/2024), [...] understanding. Participants in Care Family/Caregiver Present: No Greenhouse Technician: Not Applicable Presentation Oxygen Therapy: Supplemental oxygen [...] of Function Receives Help From: Spouse Mobility Greenlee: Independent gait with device ADL Performance: Needs assistance Bathing: Needs assist Upper Body Dressing: Needs assist Lower Body Dressing: Needs assist Grooming: Needs assist Toileting: Independent Eating: Independent Home Management Skills: Needs assist Patient/Family Goals [facility] Objective Pain Pt reported 7/10 pain in [...] Mobility Bed Mobility Exam: Scooting/Bridging Level of Greenlee: Contact guard (scooting hips forward to edge of bed) Physical/Nonphysical Assist: Verbal Cues, Minimal cues Assistive Device: Overhead trapeze Bed Mobility Exam: Supine to Sit Level of Greenlee: Minimum assist (75% patient's effort) Physical/Nonphysical Assist: HOB elevated, Verbal Cues Assistive Device: Overhead trapeze Bed Mobility Exam: Sit to Supine Level of Greenlee: Stand-by assist Physical/Nonphysical Assist: Verbal Cues, Minimal cues Assistive Device: Overhead trapeze Transfers Transfer Exam: Sit to stand Level of Greenlee: Maximum assist (25% patient's effort) (x3 reps from edge of bed, good adherence to NWB RLE) Physical/Nonphysical Assist: Verbal Cues, Nonverbal cues (demo/gestures), Additional assist utilized for safety Assistive Device: Walker, rolling (bariatric) Transfer Exam: Stand to Sit Level of Greenlee: Maximum assist (25% patient's effort) Physical/Nonphysical Assist: [...] \ Standardized Assessments Standardized Assessments Standardized Assessments: [facility] 6-Clicks Mobility Assessment [facility] 6-Clicks Mobility Assessment Difficulty patient has turning [...] climbing 3-5 steps with a railing?: Unable [facility] 6-Clicks Mobility Assessment Total : 11 Assessment [...] remission, Anxiety disorder, unspecified, Arthritis, Atrial fibrillation ([facility]/HCC), CAP (community acquired pneumonia) (05/19/2024), Cellulitis (05/19/2024), [...] session. Participants in Care Family/Caregiver Present: No Greenhouse Technician: Not Applicable Presentation Oxygen Therapy: Supplemental oxygen [...] of Function Receives Help From: Spouse Mobility Greenlee: Independent gait with device ADL Performance: Needs [...] Mobility Bed Mobility Exam: Scooting/Bridging Level of Greenlee: Contact guard (scooting hips forward to edge of bed) Physical/Nonphysical Assist: Verbal Cues, Minimal cues Bed Mobility Exam: Supine to Sit Level of Greenlee: Minimum assist (75% patient's effort) Physical/Nonphysical Assist: HOB elevated, Verbal Cues Assistive Device: Overhead trapeze Bed Mobility Exam: Sit to Supine Level of Greenlee: Stand-by assist Physical/Nonphysical Assist: Verbal Cues, Minimal cues Assistive Device: Overhead trapeze Transfers Transfer Exam: Sit to stand Level of Greenlee: Maximum assist (25% patient's effort) (x3 reps from edge of bed, good adherence to NWB RLE) Physical/Nonphysical Assist: Verbal Cues, Nonverbal cues (demo/gestures), Additional assist utilized for safety Assistive Device: Walker, rolling (bariatric) Transfer Exam: Stand to Sit Level of Greenlee: Maximum assist (25% patient's effort) Physical/Nonphysical Assist: [...] x3 reps of sit to stand to isabella RW with max Ax2 persons each time, [...] Where Assessed: Other (Comment) (in stance at [facility]) Toileting Interventions: Pt with small incontinent BM, required dep A for hygiene to buttocks in stance at [facility] with assistance from 2nd person needed for [...] education to improve BUE muscle power for level transfers and ADL tasks. Self-Care CARE [...] a helper. 5 Set-up or Clean-up Assistance Romney sets up or cleans up; patient completes activity. Romney assists only prior to or following the activity. 4 Supervision or touching assistance Romney provides verbal cues and/or touching/steadying and/or contact guard assistance as patient completes activity. Assistance may be provided throughout the activity or intermittently. 3 Partial/Moderate Assistance Romney does LESS THAN HALF the effort. Romney lifts, holds or supports trunk or limbs, but provides less than half the effort. 2 Substantial/Maximal Assistance Romney does MORE THAN HALF the effort. Romney lifts or holds trunkor limbs and provides more than half the effort. 1 Dependent Romney does ALL of the effort. Patient does [...] Note Gonzalo Smalls 49 y.o. male CSN: [id number] Admission: 04/27/2025 9:29 PM Primary Problem: Diabetic foot ulcer Anticipated Discharge Date: TBD RN CM informed by bedside RN that pt's weight was obtained and current weight is 244.3kg (538.5 lbs)- due to pt being over 500 lbs [facility] is not able to accept the pt- [...] Note Gonzalo Smalls 49 y.o. male CSN: [id number] Admission: 04/27/2025 9:29 PM Primary Problem: Diabetic foot ulcer Anticipated Discharge Date: TBD RN LA f/ u with [facility]- admission at [facility]. [facility] is stating that they might be able to accept the pt if under 500lbs. Team and bedside RN updated. Bedside RN will attempt to obtain pt's current weight. RN LA will continue to follow. Chayo Jennings RN * Progress Notes - Lynda Choudhury, ACCOUNTING FILE CLERK - 05/11/2025 11:01 AM EDT Endocrine - [...] (H) 05/09/2025 I reviewed bg tracing in [facility] glucose timeline 05/11/25 ASSESSMENT Hospital Course: [...] for recurrent UTI and has a chronic Rios. 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 Also discussed contacting [facility] directly for the financial assistance program. -patient with plans to discharge to [facility] once able - need to check with [facility] to see if they are okay with utilizing U500 insulin if patient is able to bring in his own supply Insulin regimen - would like patient to utilize U500 home dosing at [facility] Continue Dexcom G7 CGM Likely continue Ozempic [...] via secure chat or page us at [phone] during 7a-7p, Thursday-Thursday. For after hours please [...] Care Review Outcome: Ongoing, Progressing Flowsheets Taken 05/11/2025 09 Progress: improving Plan of Care Reviewed With: patient Taken 05/10/2025 0748 Outcome Evaluation: Patient agreeable Goal: Patient-Specific Goal (Individualized) Outcome: Ongoing, Progressing Flowsheets (Taken 05/11/2025 09) Patient/Family-Specific Goals (Include Timeframe): Patient will verbalize [...] Endocrine following, appreciate recs Urinary retention s/p rios - HX several months worsening progressive urinary retention since was hospitalized for abdominal infection which has been following with urology outpatient at [facility]. They have postulated this to be related to his diabetes and have had several voiding trials which have failed. Also has un dergone proctoscopy (?) which was normal. Started on flomax several weeks EXAMINER OF CURRENCY and this has not beenhelpful. and he were hoping to get a second opinion while here at - PSA WNL 05/06 - Rios care per protocol - Continue home flomax - Continue finasteride, started 05/06 - Urology consulted, No urologic intervention indicated at this time, recommend continuing indwelling rios with exchanges every 4-6 weeks for chronic [...] CODE Medically Ready for Discharge:Ready now, cardinal carranza denied admission, referral sent for swing beds, [...] plan and management with patient. Selin Lee Nut Roaster Division of Hospital Medicine [facility] * Care Plan - Genaro Haritha M - 05/10/2025 10:38 PM EDT Problem: Skin [...] Endocrine following, appreciate recs Urinary retention s/p rios - HX several months worsening progressive urinary retention since was hospitalized for abdominal infection which has been following with urology outpatient at [facility]. They have postulated this to be related to his diabetes and have had several voiding trials which have failed. Also has un dergone proctoscopy (?) which was normal. Started on flomax several weeks EXAMINER OF CURRENCY and this has not beenhelpful. and he were hoping to get a second opinion while here at - PSA WNL 05/06 - Rios care per protocol - Continue home flomax - Continue finasteride, started 05/06 - Urology consulted, No urologic intervention indicated at this time, recommend continuing indwelling rios with exchanges every 4-6 weeks for chronic urinary retention Prolonged QTC -dc trazodone for now, continue venlafaxine, vraylar, -daily EKG until it improves Chronic CHRF-home 2L HTN-BB AF-AC, dilt HF-bumex, gracie HLD-statin COPD-inhalers A/D-vraylar, lorazepam, venlafaxine Insomnia-dc/d trazodone due to prolonged qtc GERD--PPI QUINN-?CPAP, needs sleep study outpatient Obesity-complicates care Diet-carb 1 DVT PPX AC FULL CODE Medically Ready for Discharge:Ready now, cardinal carranza denied admission, referral sent for swing beds I have independently reviewed and interpreted the labs, vitals, [facility]. Current condition is not [...] plan and management with patient. Selin Lee Nut Roaster Division of Hospital Medicine [facility] * Progress Notes - Chayo Jennings RN - 05/10/2025 8:59 AM EDT Case Management Adult Progress Note Gonzalo Smalls 49 y.o. male CSN: [id number] Admission: 04/27/2025 9:29 PM Primary Problem: Diabetic foot ulcer Anticipated Discharge Date: TBD LOLA CM f/u on [facility] referral and was told that [facility] physician declined pt's acceptance to [facility]. RN CMvisited with the pt this morning to discuss d/c plan. Pt is in agreement to be referred to [facility]- referral to [facility] initiated on this day. Team aware. RN CM will continue to follow and assist with d/c plan and as needed. Chayo Jennings RN * Progress Notes - Aileen Leonardo, ACCOUNTING FILE CLERK - 05/10/2025 8:39 AM EDT Endocrine - [...] See 24 hour update Wearing CGM Genitourinary: Rios in place Skin: Positive for wound (bilateral [...] respiratory distress. Comments: Nasal cannula Genitourinary: Comments: Rios Musculoskeletal: General: No swelling. Skin: General: Skin [...] (H) 05/08/2025 I reviewed bg tracing in [facility] glucose timeline 05/10/25 ASSESSMENT Hospital Course: Gonzalo [...] for recurrent UTI and has a chronic Rios. 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 Also discussed contacting [facility] directly for the financial assistance program. -patient with plans to discharge to [facility] once able - need to check with [facility] to see if they are okay with utilizing U500 insulin if patient is able to bring in his own supply Insulin regimen - would like patient to utilize U500 home dosing at [facility] Continue Dexcom G7 CGM Likely continue Ozempic [...] team via secure chat orpage us at [phone] during 7a-7p, Thursday-Thursday. For after hours please [...] Care Review Outcome: Ongoing, Progressing Flowsheets (Taken 05/10/2025747) Progress: improving Outcome Evaluation: Patient agreeable Plan of Care Reviewed With: patient Goal: Patient-Specific Goal (Individualized) Outcome: Ongoing, Progressing Flowsheets (Taken 05/10/2025747) Patient/Family-Specific Goals (Include Timeframe): Patient will remain [...] Progressing Intervention: Promote Wound Healing Flowsheets (Taken 05/10/2025747) Sleep/Rest Enhancement: consistent schedule promoted natural light [...] sit <> stand transfers Visitors Present none Greenhouse Technician (if applicable) N/a OBJECTIVE PAIN Pt endorses [...] Mobility Bed Mobility Exam: Scooting/Bridging Level of Greenlee: Stand-by assist Physical/Nonphysical Assist: Verbal Cues, Minimal cues Assistive Device: Overhead trapeze Bed Mobility Exam: Supine to Sit Level of Greenlee: Stand-by assist Physical/Nonphysical Assist: Verbal Cues, Minimal cues, HOB elevated Assistive Device: Overhead trapeze Bed Mobility Exam: Sit to Supine Level of Greenlee: Stand-by assist Physical/Nonphysical Assist: Verbal Cues, Minimal cues Assistive Device: Overhead trapeze Transfers Transfer Exam: Sit to stand Level of Greenlee: Maximum assist (25% patient's effort) Physical/Nonphysical Assist: Set-up required, Additional assist utilized for safety, Maximal cues, Verbal Cues, Nonverbal cues (demo/gestures) Assistive Device: Hand held assist Transfer Exam: Stand to Sit Level of Greenlee: Maximum assist (25% patient's effort) Physical/Nonphysical Assist: Set-up required, Maximal cues, Verbal Cues, Nonverbal cues (demo/gestures), Additional assist utilized for safety Assistive Device: Hand held assist Self-Care Self_Care Interventions: Pt deferred ADLs this date Therapeutic Activity (40 minutes) Increased time to prep lines (rios, wound vac) for mobility. SBA with increased [...] session Participants in Care Family/Caregiver Present: No Greenhouse Technician: Not Applicable Presentation Oxygen Therapy: Supplemental oxygen [...] sequencing Bed Mobility Exam: Scooting/Bridging Level of Greenlee: Stand-by assist Physical/Nonphysical Assist: Verbal Cues, Minimal cues Assistive Device: Overhead trapeze Bed Mobility Exam: Supine to Sit Level of Greenlee: Stand-by assist Physical/Nonphysical Assist: Verbal Cues, Minimal cues, HOB elevated Assistive Device: Overhead trapeze Bed Mobility Exam: Sit to Supine Level of Greenlee: Stand-by assist Physical/Nonphysical Assist: Verbal Cues, Minimal [...] placement, sequencing, weight shifting, appropriate use of DEFENSE ANALYST, and maintaining NWB on LLE. Tactile cues provided to assist in sequencing and weight shifting. Transfer Exam: Sit to stand Level of Greenlee: Maximum assist (25% patient's effort) Physical/Nonphysical Assist: Set-up required, Additional assist utilized for safety, Maximal cues, Verbal Cues, Nonverbal cues (demo/gestures) Assistive Device: Hand held assist Transfer Exam: Stand to Sit Level of Greenlee: Maximum assist (25% patient's effort) Physical/Nonphysical Assist: [...] assistance Static Standing - Interventions: Standing w DEFENSE ANALYST Therapeutic Activity (40 minutes) See bed mobility, balance, and transfers sections for more detail. Standardized Assessments [facility] 6-Clicks Mobility Assessment Difficulty patient has turning [...] climbing 3-5 steps with a railing?: Unable [facility] 6-Clicks Mobility Assessment Total : 13 Assessment [...] Martinez, PT, DPT * Consults - Kylee Ann RD - 05/09/2025 8:22 AM EDT Adult Nutrition Evaluation Note Gonzalo Smalls 49 y.o. male CSN: [id number] Room/Bed 117/117A Nutrition evaluation type: follow-up Reason [...] Weight Evaluation: Extreme Obesity (BMI > 40) [place] Body Weight (kg): 80.9 Percent [place] Body Weight: 311 Adjusted Body Weight (kg): [...] Regular Adult Carbohydrate Restriction: Consistent CHO 2 ([id number] Steven, 80 g/meal) Adult Sodium Restriction: 2,000 mg Na Percent Meals Eaten (%): 100% of meals Diet Experience and Nutrition History: Diet Education Provided: Will monitor Pertinent home medications: Albuterol, Bumex, Insulin, Metformin, Ozempic, Aldactone [employer] needs: Nutrition Focused Physical Exam: Physical exam [...] chloride * Progress Notes - Lynda Choudhury, ACCOUNTING FILE CLERK - 05/09/2025 8:09 AM EDT Endocrine - [...] if she comes to visit today. [facility] did indicate that most patients that utilize u-500 brought their own supply. -plans to discharge to rehab sometime this coming week -Endocrine pharmacist corresponded with [facility] to ensure they would be able to [...] Genitourinary: Negative for difficulty urinating and dysuria. Rios catheter in place Skin: Positive for wound. Objective: Physical Exam Constitutional: General: He is not in acute distress. Appearance: He is obese. HENT: Head: Normocephalic and atraumatic. Right Ear: External ear normal. Left Ear: External ear normal. Nose: Nose normal. Mouth/Throat: Mouth: Mucous membranes are moist. Eyes: Conjunctiva/sclera: Conjunctivae normal. Pulmonary: Effort: Pulmonary effort is normal. No respiratory distress. Genitourinary: Comments: Rios catheter draining clear yellow urine Skin: General: [...] (H) 05/07/2025 I reviewed bg tracing in [facility] glucose timeline 05/09/25 ASSESSMENT Hospital Course: Gonzalo [...] for recurrent UTI and has a chronic Rios. 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 #UTI -rios in place #obesity -BMI 81.99 -complicates all aspects of care - contributes to insulin resistance #diabetes mellitus - type 2 -Home medications: CGM: DexPretty in my Pocket (PRIMP) G7 Insulin regimen: U500 insulin: prescription for [...] dispensed 04/17/2025 Novolog mix last dispensed 02/22/2025 Judithditammie Did not tolerate Mounjaro due to GI [...] continue to assess need -Follow-up plan: home outside medical sales representative - Anette Kendall -Tentative discharge recommendations: NOTE: -patient reports that once the new year hits, he worries about the cost of U500 insulin -patient with plans to discharge to [facility] once able - need to check with [facility] to see if they are okay with utilizing U500 insulin if patient is able to bring in his own supply Insulin regimen - would like patient to utilize U500 home dosing at [facility] Continue Dexcom G7 CGM Likely continue Ozempic [...] via secure chat or page us at [phone] during 7a-7p, Thursday-Thursday. For after hours please [...] Endocrine following, appreciate recs Urinary retention s/p rios - HX several months worsening progressive urinary retention since was hospitalized for abdominal infection which has been following with urology outpatient at [facility]. They have postulated this to be related to his diabetes and have had several voiding trials which have failed. Also has un dergone proctoscopy (?) which was normal. Started on flomax several weeks EXAMINER OF CURRENCY and this has not beenhelpful. 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 HTN-BB AF-AC, dilt HF-bumex, gracie HLD-statin COPD-inhalers A/D-vraylar, lorazepam, venlafaxine Insomnia-trazadone GERD--PPI QUINN-?CPAP, needs sleep study outpatient Obesity-complicates care Diet-carb 1 DVT PPX AC FULL CODE Medically Ready for Discharge:Ready now, awaiting placement to [place] d[facility] Lee Nut Roaster Division of Hospital Medicine [facility] * Care Plan - Checo Monson - [...] Progressing * Progress Notes - Lynda Choudhury, ACCOUNTING FILE CLERK - 05/08/2025 5:30 PM EDT Endocrine - [...] restart u-500 -Endocrine pharmacist corresponded with [facility] to ensure they would be able to [...] for recurrent UTI and has a chronic Rios. 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 once able - need to check with [facility] to see if they are okay with utilizing U500 insulin if patient is able to bring in his own supply Insulin regimen - would like patient to utilize U500 home dosing at [facility] Continue Dexcom G7 CGM Likely continue Ozempic [...] via secure chat or page us at [phone] during 7a-7p, Thursday-Thursday. For after hours please [...] Ongoing, Progressing Flowsheets (Taken 05/07/20251999 by Judd Zavaleta, LOLA) Patient/Family-Specific Goals (Include [...] Note Gonzalo Smalls 49 y.o. male CSN: [id number] Admission: 04/27/2025 9:29 PM Primary Problem: Diabetic [...] acute rehab. RNCM awaiting MD approval from [facility]. Liaison will reach out with answer. Will continue to follow. RNCM will continue to monitor for further discharge needs. Mayra Apodaca RN * Care Plan - Jeevan Shah RN - 05/08/2025 12:43 PM EDT Problem: Wound Goal: Optimal Wound Healing Outcome: Ongoing, Progressing Intervention: Promote Wound Healing Note: See recs, cont wound vac Patient evaluated by [facility] nurse, individualized recommendations placed and care plan [...] 05/08/2025 10:19 AM Wound Image Wound Assessment [place];Red (moist) Margins Well-defined edges Saba-Wound Assessment Intact [...] changes or concerns prior to follow up. Jevean Shah RN OCN 05/08/2025 12:39 PM * Thi Chavarria RN - 05/08/2025 10:55 AM EDT Images from the original note were not included. Low-Carb Diets: How Do They Work - Video Watch this video to learn about the health benefits of a low carb diet. To view the video go to this web address: https://bit.ly/5X63QX5 Or, scan this QR code with your smart phone ?? [employer] * Thi Chavarria RN - 05/08/2025 10:55 AM EDT Images from the original note were not included. Type 2 diabetes: 7 Ways to Prevent Penitentiary Complications - Video Watch this video to [...] the video go to this web address: [email or web address] Or, scan this QR code with your smart phone ?? [employer] * Ruy HoffmanFHIR - Thi Carmona, RN - 05/08/2025 10:55 [...] to gently smooth the nail. Have a clinical systems educator trim your nails if you can't see [...] remove corns, calluses, or warts by yourself. Ando-hvz-tqyvytf products can burn or damage your skin. [...] your primary care doctor or by a clinical systems educator. This is a doctor who specializes in foot care. Some diabetes centers have regular foot clinics. Last Reviewed Date: 2024 00:00:00 ?? 8410-9877 [employer] All rights reserved. This information is not intended as a substitute for professional medical care. Always follow your healthcare professional's instructions. * Krames OnFHIR - Thi Carmona RN - 05/08/2025 10:55 AM EDT Images from the original note were not included. What is Type 2 Diabetes? - Video Watch this clip to understand what happens within your body when you have type 2 diabetes, and the importance of keeping your blood glucose levels within a healthy range. To view the video go to this web address: [email or web address] Or, scan this QR code with your smart phone ?? [employer] * Consults - Beatriz Hu DO - 05/08/2025 8:38 AM EDTAssociated Order(s): Inpatient consult to Urology Inpatient consult to Urology Consult performed by: Beatriz Hu DO Consult ordered by: Diane Guzman MD [facility] Urology Consult Note 05/08/25 Service Requesting Consultation: Hospital Medicine CC: urinary retention HPI: Gonzalo Smalls is a 49 y.o. male with a past urologic history of urinary retention, recurrent UTIs,BPH, morbid obesity who presented to [facility] ED with diabetic foot ulcer. On [...] Urology was consulted for urinary retention with rios in place. Rios was placed around 7 days agoper patient and per staff, it is draining clear yellow urine 18Fr. He states that around 3 months ago he started to have dribbling from urethra and was found to have pyelonephritis and hydronephrosisdue to incomplete emptying he states. After this he presented [facility] urolog[facility] Dr. Painting who stated to patient that he had chronic urinary retention, performed a cystoscopy on him and stated thatprostate was normal and attributed retention to his uncontrolled DM Hgb A1c 9-10. For the past 3 months he has required a chronic rios catheter. He states that he would like to discuss further manage ment of chronic urinary retention and that he has now established care with a Dr. Mendenhall urologist asthis is closer to home and he does [...] (NEURONTIN) 600 mg, 3 times daily HYDROcodone-acetaminophen ([place]) 10-325 MG tablet 1 tablet, Every 6 hours PRN Insulin Pen Needle (Pen [place]) 31G X 5 MM misc USE TO [...] appears well perfused ABD: Nondistended : 18Fr rios catheter in place draining clear yellow urine [...] obesity and uncontrolled diabetes who presented to [facility] ED with diabetic foot ulcer. On 12/21/2024 patient was called by urology to schedule an appointment and he stated that he would like to schedule closer to home. AF and HDS. Labs are WBC 6.86, hgb 8.9, cr 0.71.No urine studies have been obtained on. No recent urologic imaging. Urology was consulted for urinary retention with rios in place. Rios was exchanged around 7 days ago per patient and per staff. On exam it is draining clear yellow urine from 18Fr. He states that around 3 months ago he started to have dribbling from urethra and was found to have pyelonephritis and hydronephrosis due to incomplete emptying he states. After this he presented to [facility] u[facility] Dr. Painting who stated to patient that he had chronic urinary retention, performed a cystoscopy on himand stated that prostate was normal and attributed retention to his uncontrolled DM Hgb A1c 9-10. For the past 3 months he has required a chronic rios catheter. He states that he would like to discus s further management of chronic urinary retention and that he has now established care with a [facility] urologist as this is closer to home and he does not wish to FU with urology. Plan: - No urologic intervention indicated at this time - Would recommend continuing indwelling rios with exchanges every 4-6 weeks for chronic urinary retention - Recommend preventing constipation - Recommend glucose control per primary - Patient states that he has now established care with a Dr. Mendenhall an [facility] as this is closer to [...] Endocrine following, appreciate recs #Urinary retention s/p rios - HX several months worsening progressive urinary retention since was hospitalized for abdominal infection which has been following with urology outpatient at [facility]. They have postulated this to be related to his diabetes and have had several voiding trials which have failed. Also has un dergone proctoscopy (?) which was normal. Started on flomax several weeks EXAMINER OF CURRENCY and this has not beenhelpful. and he were hoping to get a second opinion while here at - PSA WNL 05/06 - Rios care per protocol - Continue home flomax [...] Progressing * Progress Notes - Tonia Nguyen Yehuda - 05/07/2025 11:53 AM EDT Physical Therapy [...] Mobility Bed Mobility Exam: Scooting/Bridging Level of Greenlee: Stand-by assist Physical/Nonphysical Assist: Verbal Cues Bed Mobility Exam: Supine to Sit Level of Greenlee: Contact guard Physical/Nonphysical Assist: Set-up required, Verbal Cues, Minimal cues Bed Mobility Exam: Sit to Supine Level of Greenlee: Minimum assist (75% patient's effort) Physical/Nonphysical Assist: Set-up required, Verbal Cues, Minimal cues Transfers Transfer Exam: Sit to stand Level of Greenlee: (Pt attempted with use of bariatric RW; [...] return to supine. Therapeutic Exercise Access Code: [email or web address] HEP printed and pt received copy with [...] provided based on observable deficits.* Level of Greenlee Interventions Grooming Patient demo's adequate BUE strength/ROM [...] maintain WB status. FUNCTIONAL MOBILITY Level of Greenlee Physical/Non-physical Assist Adaptive Equipment Utilized Scooting/ Bridging [...] Appearance Posture: Within Functional Limits Level of Greenlee Balance Support Static Sit Standby assist Feet supported Dynamic Sit Standby assisst Feet supported THERAPEUTIC EXERCISE INTERVENTIONS (10 minutes) Treatment Details The patient was educated re: implementation of BUE HEP in order to target muscle groups necessary for functional mobility and ADL independence. HEP printed and each exercise reviewed, pt verbalized understanding. [place] Access Details (if appropriate) Access Code: [email or web address] URL: [email or web address] Date: 05/07/25 Exercises Included - Seated Elbow [...] wound healing while inpatient #Urinary retention s/p rios - HX several months worsening progressive urinary retention since was hospitalized for abdominal infection which has been following with urology outpatient at [facility]. They have postulated this to be related to his diabetes and have had several voiding trials which have failed. Also has un dergone proctoscopy (?) which was normal. Started on flomax several weeks EXAMINER OF CURRENCY and this has not beenhelpful. and he were hoping to get a second opinion while here at - PSA WNL 05/06 - Rios care per protocol - Continue home flomax - Continue finasteride, started 05/06 - Urology Thursday #Chronic CHRF-home 2L HTN-BB AF-AC, dilt HF-bumex, gracie HLD-statin COPD-inhalers A/D-vraylar, lorazepam, venlafaxine Insomnia-trazadone GERD--PPI QUINN-?CPAP Obesity-complicates care Diet-carb 1 DVT PPX AC FULL CODE Medically Ready for Discharge:Ready now * Progress Notes - Aileen Leonardo, ACCOUNTING FILE CLERK - 05/07/2025 7:33 AM EDT Endocrine - Diabetes Consult follow-up: Subjective: 24 hour update: -plans to discharge to rehab sometime this coming week - need to check with [facility] to see ifthey are okay with utilizing [...] See 24 hour update Wearing CGM Genitourinary: Rios in place Skin: Positive for wound (bilateral [...] (H) 05/06/2025 I reviewed bg tracing in [facility] glucose timeline 05/07/25 ASSESSMENT Hospital Course: Gonzalo [...] for recurrent UTI and has a chronic Rios. 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 once able - need to check with [facility] to see if they are okay with utilizing U500 insulin if patient is able to bring in his own supply Insulin regimen - would like patient to utilize U500 home dosing at [facility] Continue Dexcom G7 CGM Likely continue Ozempic Likely continue metformin May substitute for therapeutic equivalent per insurance and retail PharmD approval -Supplies/scripts needed: Ensure patient has working glucose meter and supplies as back-up to CGM DM/Endo team will continue to follow. Please notify us as patient nears discharge for final recommendations Please contact Aileen Leonardo APRN [place] Adult Inpatient Diabetes team via secure Ayi Laile orpaErrand Boy Delivery Business Plan us at [phone] during 7a-7p, Thursday-Thursday. For after hours please [...] Endocrine following, appreciate recs #Urinary retention s/p rios - HX several months worsening progressive urinary retention since was hospitalized for abdominal infection which has been following with urology outpatient at [facility]. They have postulated this to be related to his diabetes and have had several voiding trials which have failed. Also has un dergone proctoscopy (?) which was normal. Started on flomax several weeks EXAMINER OF CURRENCY and this has not beenhelpful. and he were hoping to get a second opinion while here at - Rios care per protocol - Continue home flomax - Add finasteride - Urology Thursday #Chronic CHRF-home 2L HTN-BB AF-AC, dilt HF-bumex, gracie HLD-statin COPD-inhalers A/D-vraylar, lorazepam, venlafaxine Insomnia-trazadone GERD--PPI QUINN-?CPAP Obesity-complicates care Diet-carb 1 DVT PPX AC FULL CODE Medically Ready for Discharge:Ready now * Progress Notes - Longaquilino Aileen K, ACCOUNTING FILE CLERK - 05/06/2025 7:46 AM EDT Endocrine - Diabetes Consult follow-up: Subjective: 24 hour update: -patient discharging to [facility] around Thursday or Thursday - need to check with [facility] to see if they are okay with utilizing U500 insulin if patient is able to bring in his own supply -continues with hyperglycemia - insulin regiment adjusted 05/05AM BG 348 -patient snacking overnight on beef [...] See 24 hour update Wearing CGM Genitourinary: Rios in place Skin: Positive for wound (bilateral [...] respiratory distress. Comments: Nasal cannula Genitourinary: Comments: Rios Musculoskeletal: General: No swelling. Skin: General: Skin [...] for recurrent UTI and has a chronic Rios. 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 around Thursday or Thursday - need to check with [facility] to see if they are okay with [...] discharge for final recommendations Please contact Aileen K Alagusundaramoorthy, ACCOUNTING FILE CLERK OR Adult Inpatient Diabetes team via secure chat orpaErrand Boy Delivery Business Plan us at [phone] during 7a-7p, Thursday-Thursday. For after hours please [...] is in abx, has his CHG and Clements wipes done in this shift Problem: Mobility [...] vascular surgery; wound vac applied 05/03 by [facility] Wound Assessment: Wound 05/01/25 Surgical Toe (Comment which one) Anterior;Right (Active) Date First Assessed/Time First Assessed: 05/01/25 0805 Present on Original Admission: No Hand Hygiene Completed: Yes Primary Wound Type: Surgical Location: Toe (Comment which one) Wound Location Orientation: Anterior;Right Assessments 05/05/2025 11:44 AM Wound Image Wound Assessment [place];Red (moist , full thickness) Margins Well-defined edges [...] no orders noted for wound vac, maessaged [facility] team for guidance. Orders placedfor nursing [...] wound vac in use Patient evaluated by [facility] nurse, individualized recommendations placed and care plan interventions updated; see wound care note for details regarding recommendations to support optimal wound healing. * Progress Notes - Mayra Apodaca RN - 05/05/2025 12:30 PM EDT Case Management Adult Progress Note Gonzalo Smalls 49 y.o. male CSN: [id number] Admission: 04/27/2025 9:29 PM Primary Problem: Diabetic [...] acute rehab. RNCM sent referral to [facility] on this date. RNCM will continue to [...] non-distended, bowel sounds in all quadrants : Rios in place with clear, yellow urine VASC: [...] No MDRO isolated 04/27/25 Blood culture NGTD [facility] Culture Data: - 04/25/25: Blood culture [...] pathology. Patient is planned to discharge to [facility]. Recommend close follow-up with vascular surgery and wound care after discharge. 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 Per chart review it appears that the [...] via secure chat or page us at [phone] during 7a-7p, Thursday-Thursday. For after hours please [...] Endocrine following, appreciate recs #Urinary retention s/p rios - Rios care per protocol - Continue home flomax [...] precautions. Bed Mobility Exam: Rolling/Turning Level of Greenlee: Contact guard Physical/Nonphysical Assist: Verbal Cues, Moderate cues Bed Mobility Exam: Scooting/Bridging Level of Greenlee: Stand-by assist Bed Mobility Exam: Supine to Sit Level of Greenlee: Contact guard Physical/Nonphysical Assist: Verbal Cues Bed Mobility Exam: Sit to Supine Level of Greenlee: Stand-by assist Patient performed rolling bilaterally for placement of lift pad. Transfers Transfer Exam: Sit to stand Level of Greenlee: (Patient unable to perform without engaging right [...] promote tempo and full ROM. Standardized Assessments [facility] 6-Clicks Mobility Assessment Difficulty patient has turning [...] climbing 3-5 steps with a railing?: Unable [facility] 6-Clicks Mobility Assessment Total : 12 Assessment Patient tolerated treatment without adverse events today, required skilled intervention to guide appropriate performance of activities with cuingmashaos and feedback provided as needed. Skilled time [...] help from Spouse Level of Mobility Mobility Green[place] History of Falls ADL Performance Needs assistance [...] to therapy this date. Visitors Present No Greenhouse Technician (if applicable) OBJECTIVE PAIN Pain Score (0-10): [...] sba for bed mobility tasks. Level of Green[place] Adaptive Equipment Utilized Comments Feeding Grooming Setup washing face/hands Bathing Upper Body Dressing Lower Body Dressing Shoe Level of Assistance: Dependent Toileting IADLs Health Management Community Re-Entry BALANCE Postural Appearance INTERVENTIONS Level of Greenlee Balance Support Comments Static Sit Standby assist [...] weight shifting to promote safety. Level of Greenlee Physical/Non-physical Assist Adaptive Equipment Utilized Rolling/ Turning [...] L NC GI: Abdomen appears non-distended : Rios in place with clear, yellow urine VASC: [...] No MDRO isolated 04/27/25 Blood culture NGTD [facility] Culture Data: - 04/25/25: Blood culture [...] DFU - Urinary retention with Chronic Indwelling Rios - Recurrent UTI with recent history of [...] PA-C Division of Infectious Diseases Available by [employer] History, assessment, and plan discussed with ID [...] Marjorie Myers MD 3 mg at 05/03/25 0923 cefepime (Maxipime) 2 g in sodium chloride 0.9% 100 mL IVPB (vial adapter required) 2 g [id number] Diane Guzman MD 36.7 mL/hr at 05/03/25 2354 2 g at 05/03/25 2354 DAPTOmycin (Cubicin) 1,500 mg in sodium chloride 0.9 % 100 mL IVPB 10 mg/kg (Adjusted) Intravenous q24h Marjorie Myers MD 280 mL/hr at 05/03/25 1811 1,500 mg at 05/03/25 181 glucose (Glutose) [...] Units 30 Units Subcutaneous TID with meals MartinezSarah rubalcava P, ACCOUNTING FILE CLERK 30 Units at 05/03/251810 Insulin Lispro (Admelog, HumaLOG) 100 UNIT/ML injection 8 Units 8 Units Subcutaneous BID PRN Sarah Martinez, ACCOUNTING FILE CLERK insulin NPH (Isophane) (HumuLIN N,NovoLIN N) injection 50 Units 50 Units Subcutaneous BID Sarah Martinez APRN 50 Units at 05/03/252043 ipratropium-albuterol (Duo-Neb) 0.5-2.5 [...] Progress Notes - Aileen Leonardo APRN - 05/04/2025 8:37 AM EDT Endocrine - [...] (H) 05/02/2025 I reviewed bg tracing in [facility] glucose timeline 05/04/25 ASSESSMENT Hospital Course: [...] for recurrent UTI and has a chronic Rios. Per chart review it appears that the [...] 133 units -05/02: 250-358, TDD 180 units -10/22: 258-372, TDD 220 units -A1c: Lab Results [...] continue to assess need -Follow-up plan: home outside medical sales representative - Anette Kendall -Tentative discharge recommendations: Insulin [...] team via secure chat orpage us at [phone] during 7a-7p, Thursday-Thursday. For after hours please [...] Endocrine following, appreciate recs #Urinary retention s/p rios - Rios care per protocol - Continue home flomax [...] Review Outcome: Ongoing, Progressing Flowsheets Taken 05/03/2025 1842 by Kylee Gonzalez RN Progress: improving Taken 05/02/2025 1820 by Santy Garcia RN Plan of Care [...] Intake Flowsheets (Taken 04/30/2025 1452 by Radha Saavedra RN) Oral Nutrition Promotion: rest periods promoted [...] Flowsheets (Taken 05/03/2025 0459 by Aime Gill, RN) Pain Management Interventions: medication (see MAR) [...] of Infection Signs and Symptoms 05/03/20251841 by LisaKylee rondon RN Outcome: Ongoing, Progressing 05/03/2025 184 by Kylee Gonzalez RN Outcome: Ongoing, Progressing Intervention: Prevent or Manage Infection Flowsheets Taken 05/03/2025 0800 by Kylee Gonzalez RN Isolation Precautions: precautions maintained Taken 05/02/2025 1820 by Santy Garcia, RN Fever Reduction/Comfort Measures: lightweight clothing Taken 05/01/2025 1130 by Rocío Crandall RN Infection Management: aseptic technique maintained Problem: Mobility Impairment Goal: Optimal Mobility 05/03/2025 184 by Kylee Gonzalez RN Outcome: Ongoing, Progressing 05/03/2025 184 by Kylee Gonzalez RN Outcome: Ongoing, Progressing Intervention: Optimize Mobility Flowsheets Taken 05/03/2025 184 by Kylee Gonzalez RN Activity Management: activity encouraged activity adjusted per tolerance up in chair Assistive Device Utilized: lift device Taken 05/01/2025 1130 by Rocío Crandall RN Positioning/Transfer Devices: pillows air-assisted device Problem: Mobility Impairment Goal: Optimal Mobility 05/03/2025 184 by Kylee Gonzalez RN Outcome: Ongoing, Progressing 05/03/20251841 by Kylee Gonzalez RN Outcome: Ongoing, Progressing Problem: Diabetes Goal: Optimal Coping 05/03/20251841 by Kylee Gonzalez RN Outcome: Ongoing, Progressing 05/03/20251841 by Kylee Gonzalez RN Outcome: Ongoing, Progressing Intervention: Support Wellbeing and Self-Management Success Flowsheets (Taken 05/02/2025 1820 by Santy Garcia, RN) Supportive Measures: relaxation techniques promoted self-care encouraged self-reflection promoted Family/Support System Care: self-care encouraged Goal: Optimal Functional Ability 05/03/20251841 by Kylee Gonzalze RN Outcome: Ongoing, Progressing 05/03/20251841 by Kylee Gonzalez RN Outcome: Ongoing, Progressing Intervention: Optimize Functional Ability Flowsheets Taken 05/03/2025 184 by Kylee Gonzalez [...] from the original note were not included. [facility] Department of Surgery Division of [...] an 49 y.o. male who presented to [facility] 04/27/2025 with diabetic foot ulcer now [...] Note Gonzalo Smalls 49 y.o. male CSN: [id number] Admission: 04/27/2025 9:29 PM Primary Problem: Diabetic [...] No MDRO isolated 04/27/25 Blood culture NGTD [facility] Culture Data: - 04/25/25: Blood culture [...] DFU - Urinary retention with Chronic Indwelling Rios - Recurrent UTI with recent history of [...] PA-C Division of Infectious Diseases Available by [employer] History, assessment, and plan discussed with ID [...] q24h Marjorie Myers MD 280 mL/hr at 05/02/251740 1,500 mg at 05/02/251740 glucose (Glutose) 40 % oral gel 15-30 [...] meals Marjorie Myers MD 12 Units at 05/03/25 0920 insulin lispro (Admelog) injection - Correction - Nighttime Dose 0-3 Units Subcutaneous Twice at night Marjorie Myers MD 3 Units at 05/03/25 0344 Insulin Lispro (Admelog, HumaLOG) 100 UNIT/ML injection 30 Units 30 Units Subcutaneous TID with meals Sarah Martinez P, ACCOUNTING FILE CLERK 30 Units at 05/03/25 0920 Insulin Lispro (Admelog, HumaLOG) 100 UNIT/ML injection 6 Units 6 Units Subcutaneous BID PRN Sarah Martinez P, ACCOUNTING FILE CLERK insulin NPH (Isophane) (HumuLIN N,NovoLIN N) injection 42 Units 42 Units Subcutaneous BID Sarah Martinez P, ACCOUNTING FILE CLERK 42 Units at 05/03/25 0919 ipratropium-albuterol (Duo-Neb) [...] Marjorie Myers MD 100 mg at 05/03/25 0922 tamsulosin (Flomax) 24 hr capsule 0.4 mg 0.4 mg Oral Daily OMarjorie weaver MD 0.4 mg at 05/03/25921 traZODone (Desyrel) [...] Endocrine following, appreciate recs #Urinary retention s/p rios - Rios care per protocol - Continue home flomax #Chronic HTN-BB AF-AC, dilt HF-bumex, gracie HLD-statin COPD-inhalers A/D-vraylar, lorazepam, venlafaxine Insomnia-trazadone GERD--PPI QUINN-?CPAP Obesity-complicates care Diet-carb 1 DVT PPX AC FULL CODE Medically Ready for Discharge:Anticipated in 5+ Days * Progress Notes - Sarah Martinez, ACCOUNTING FILE CLERK - 05/03/2025 7:55 AM EDT Endocrine - [...] for recurrent UTI and has a chronic Rios. Per chart review it appears that the [...] continue to assess need -Follow-up plan: home outside medical sales representative - Anette Kendall -Tentative discharge recommendations: Insulin [...] via secure chat or page us at [phone] during 7a-7p, Thursday-Thursday. For after hours please [...] from the original note were not included. [facility] Department of Surgery Division of [...] Results from last 7 days Lab Units 05/03/2531505/02/2530905/01/25 0214 CREATININE mg/dL 0.78 0.73 0.71 Medications [...] Review Outcome: Ongoing, Progressing Flowsheets (Taken 05/02/2025 1820 by Santy Garcia RN) Progress: improving Plan [...] Progressing Intervention: Optimize Skin Protection Flowsheets Taken 05/02/20250 by Santy Garcia, RN Activity Management: activity [...] Measures: lightweight clothing Isolation Precautions: protective Taken 05/01/2025 1130 by Rocío Crandall RN Infection Management: aseptic technique maintained Problem: Mobility Impairment Goal: Optimal Mobility Outcome: Ongoing, Progressing Intervention: Optimize Mobility Flowsheets Taken 05/02/20251819 by Santy Garcia, RN Activity Management: activity adjusted per tolerance Taken 05/01/2025 1130 by Rocío Crandall RN [...] per tolerance Self-Care Promotion: independence encouraged Taken 05/01/2025 1130 by Rocío Crandall, RN Activity Assistance Provided: lift team assistance assistance refused Goal: Blood Glucose Level Within Target Range Outcome: Ongoing, Progressing Goal: Minimize Hypoglycemia Risk Outcome: Ongoing, Progressing Intervention: Minimize and Manage Hypoglycemia Flowsheets (Taken 05/01/2025 1130 by Rocío Crandall, RN) Hypoglycemia Management: blood glucose monitored Problem: [...] Progressing Intervention: Optimize Psychosocial Wellbeing Flowsheets (Taken 05/02/2025 1820 by Santy Garcia, RN) Supportive Measures: relaxation techniques promoted self-care encouraged self-reflection promoted * Care Plan - Jeevan Shah RN - 05/02/2025 1:00 PM EDT Problem: Skin Injury Risk Increased Goal: Skin Health and Integrity Outcome: Ongoing, Progressing Intervention: Optimize Skin Protection Flowsheets (Taken 05/02/2025 1250) Activity Management: activity adjusted per tolerance Pressure Reduction Devices: specialty bed utilized Head of Bed (HOB) Positioning: HOB at 30 degrees Note: See recs Patient evaluated by WOC nurse, individualized recommendations placed and care plan [...] JOINT INFECTIOUS DISEASE PROGRESS NOTE 05/02/2025 SUBJECTIVE: JOEO, patient seen and evaluated this afternoon. He [...] No MDRO isolated 04/27/25 Blood culture NGTD [facility] Culture Data: - 04/25/25: Blood culture [...] DFU - Urinary retention with Chronic Indwelling Rios - Recurrent UTI with recent history of [...] PA-C Division of Infectious Diseases Available by [employer] History, assessment, and plan discussed with ID [...] Daily Marjorie Myers MD 120 mg at 9 gabapentin (Neurontin) capsule 600 mg 600 mg [...] Endocrine following, appreciate recs #Urinary retention s/p rios - Rios care per protocol - Continue home flomax [...] Note Gonzalo Smalls 49 y.o. male CSN: [id number] Room/Bed 117/117A Nutrition evaluation type: assessment Reason [...] at bedside. Good appetite both now and EXAMINER OF CURRENCY. No known unintentional weight changes, UBW 570#. No chewing or swallowing difficulties. No N/V/D. Reports being constipated - finally had a BM today after 6 days though notes he feels he still needs to go. Agreeable to [facility] to aid in woundhealing. Vitals and Basic Assessment: BP: 132/75 Temp: 36.8 ??C (98.2 ??F) Oxygen Therapy: Supplemental oxygen O2 Delivery Method: Nasal cannula [place] Coma Scale Score: 15 Miguel Ángel Scale [...] Weight Evaluation: Extreme Obesity (BMI > 40) [place] Body Weight (kg): 80.9 Percent [place] Body Weight: 311 Adjusted Body Weight (kg): [...] Regular Adult Carbohydrate Restriction: Consistent CHO 1 (1960-5386 Steven, 65 g/meal) Adult Sodium Restriction: 2,000 mg Na Percent Meals Eaten (%): 68% avg x 5 meals Diet Experience and Nutrition History: Diet Education Provided: Will monitor Pertinent home medications: Albuterol, Bumex, Insulin, Metformin, Ozempic, Aldactone Pent[employer]alism needs: Nutrition Focused Physical Exam: Physical exam [...] from the original note were not included. [facility] Department of Surgery Division of [...] Airway None Output by Drain (mL) 04/30/25 0700 - 04/30/25 1859 04/30/25 1900 - 05/01/25 [...] Results from last 7 days Lab Units 10/21/25 0310 05/01/25 0214 04/30/25 0319 HEMOGLOBIN g/dL 8.8* 9.8* 9.6* HEMATOCRIT % 29.3* 32.5* 32.6* INR Results from last 7 days Lab Units 04/28/25 0813 INR 1.4* Cr Results from last 7 days Lab Units 05/02/25 0310 05/01/25 0214 04/30/25318 CREATININE mg/dL 0.73 0.71 0.77 Medications reviewed. [...] documented. * Progress Notes - Sarah Martinez, ACCOUNTING FILE CLERK - 05/02/2025 7:47 AM EDT Endocrine - Diabetes Progress Note: Subjective: 24 hour update: -AM BG 283 -s/p toe amputation 05/01 -PO intake good with meals. Reports snacking overnight while watching the games including yolandaOMNIlife science, goldfish, ritz crackers and other snacks -no [...] for recurrent UTI and has a chronic Rios. Per chart review it appears that the [...] treatment -plan and management discussed with patient, clinical systems educator, bedside RN NOTE: -Patient utilizes U500 insulin pen at home. With the U500 pen, a conversion is not needed. Typically patient's required a 70% reduction in home U500 dosing. 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: home outside medical sales representative - Anette Kendall -Tentative discharge recommendations: Insulin [...] via secure chat or page us at [phone] during -7p, Thursday-Thursday. For after hours please [...] consulted and rec amputation vs transfer to [facility] for podiatry input about foot salvage : cannot transfer to [facility] given weight limit, pod team cannot come to . - Vas surgery : Foot debridement with 5th toe amputation on 05/01. Path is sent, not Cx. - may resume xarelto once surgery clear #Type 2 DM #Neuropathy - DM team consulted - FSBS per protocol - 2CC diet #UTI #Recurrent UTI #BPH - Rios in place due to in an adequate bladder emptying - home meds: Flomax Plan - Rios care per protocol - Continue home Flomax [...] Note Gonzalo Smalls 49 y.o. male CSN: [id number] Admission: 04/27/2025 9:29 PM Primary Problem: Diabetic [...] from the original note were not included. [facility] Department of Surgery Division of [...] nursing staff. I have notified senior resident/attending flight operations coordinator with any issues or concerns. Leidy [...] DFU - Urinary retention with Chronic Indwelling Rios - Recurrent UTI with recent history of [...] bony pathology, duration TBD - Will contact [facility] tomorrow to check on urine culture [...] PA-C Division of Infectious Diseases Available by [employer] History, assessment, and plan discussed with ID attending, Dr. Chintan Doran The following complex inpatient infectious disease services were performed today: Complex antimicrobial therapy counseling and treatment [1] Current Facility-Administered Medications Medication Dose Route Frequency Provider Last Rate Last Admin [Transfer Hold] acetaminophen (Tylenol) tablet 1,000 mg 1,000 mg Oral q6h PRN Sy De La Fuente APRN, DNP 1,000 mg at 04/30/25 0328 [Transfer Hold] [...] 33 Units 33 Units Subcutaneous BID Ivory Samuels, KAYIL 16 Units at 04/30/252026 insulin regular (HumuLIN [...] at 05/01/25 0311 2 g at 05/01/25 0311 [Transfer Hold] mupirocin (Bactroban) 2 % ointment [...] Oral Nightly Sy De La Fuente APRN, DENISE 100mg at 04/30/252019 [Transfer Hold] venlafaxine XR (Effexor-XR) 24 hr capsule 150 mg 150 mg Oral Daily Sy De La Fuente APRN, DNP 150 mg at 04/30/25 0954 Facility-Administered Medications Ordered in Other Encounters Medication Dose Route Frequency Provider Last Rate Last Admin dexmedetomidine in NS (Precedex) 4 mcg/mL infusion Intravenous PRN Muzic, Og A, ADJUNCT TEACHER 8 mcg at 05/01/25 0841 fentaNYL (Sublimaze) injection Intravenous PRN Muzic, Og A, ADJUNCT TEACHER 25 mcg at 05/01/25 0826 lactated Ringer's infusion Intravenous Continuous PRN Muzic, Og A, ADJUNCT TEACHER New Bag at 05/01/25 0728 midazolam (Versed) injection Intravenous PRN Muzic, Og A, ADJUNCT TEACHER 1 mg at 05/01/25 0757 [2] Allergies [...] See 24 hour update Wearing CGM Genitourinary: Rios in place Skin: Positive for wound (bilateral [...] respiratory distress. Comments: Nasal cannula Genitourinary: Comments: Rios Musculoskeletal: General: No swelling. Skin: General: Skin [...] (H) 04/29/2025 I reviewed bg tracing in [facility] glucose timeline 05/01/25 ASSESSMENT Hospital Course: Gonzalo [...] for recurrent UTI and has a chronic Rios. Per chart review it appears that the [...] continue to assess need -Follow-up plan: home outside medical sales representative - Anette Kendall -Tentative discharge recommendations: Insulin [...] team via secure chat orpage us at [phone] during 7a-7p, Thursday-Thursday. For after hours please [...] AM EDT Operative Note Date: 05/01/25 Location: [facility] Name: Gonzalo Smalls, : 1975, Diagnoses: Pre-op Diagnosis Other chronic osteomyelitis of right foot (CMS/HCC) Post-op Diagnosis Other chronic osteomyelitis of right foot (CMS/HCC) Procedure(s): Right 5th toe ray amputation Attending Surgeon(s): Mary Gregg - Primary Automotive Technician(s): * Paula Martinez MD - Resident - [...] the wound bed. This extended more than fci to the heel laterally. The underlying skin [...] Mobility Impairment Goal: Optimal Mobility Outcome: Ongoing, Intervention: Optimize Mobility Flowsheets (Taken 05/01/20253) Activity Management: activity adjusted per tolerance Positioning/Transfer Devices: pillows Problem: Mobility Impairment Goal: Optimal Mobility Outcome: Ongoing, Intervention: Optimize Mobility Flowsheets (Taken 05/01/20253) Activity Management: activity adjusted per tolerance Positioning/Transfer Devices: pillows Problem: Diabetes Goal: Optimal Coping Outcome: Ongoing, Intervention: Support Wellbeing and Self-Management Success Flowsheets (Taken 05/01/20253) Supportive Measures: active listening utilized self-care encouraged Family/Support System Care: presence promoted Goal: Optimal Functional Ability Outcome: Ongoing, Intervention: Optimize Functional Ability Flowsheets (Taken 05/01/20253) [...] consulted and rec amputation vs transfer to [facility] for podiatry input about foot salvage : cannot transfer to [facility] given weight limit, pod team cannot [...] 2CC diet #UTI #Recurrent UTI #BPH - Rios in place due to in an adequate bladder emptying - home meds: Flomax Plan - Rios care per protocol - Continue home Flomax [...] Progressing Intervention: Optimize Skin Protection Flowsheets (Taken 04/30/2025 1452) Activity Management: activity adjusted per tolerance Pressure Reduction Techniques: frequent weight shift encouraged weight shift assistance provided Pressure Reduction Devices: pressure-redistributing mattress utilized Skin Protection: incontinence pads utilized Head of Bed (HOB) Positioning: HOB elevated Intervention: Promote and Optimize Oral Intake Flowsheets (Taken 04/30/2025 145) Oral Nutrition Promotion: rest periods promoted Problem: Adult Inpatient Plan of Care Goal: Optimal Comfort and Wellbeing Outcome: Ongoing, Progressing Intervention: Monitor Pain and Promote Comfort Flowsheets (Taken 04/30/2025 1452) Pain Management Interventions: medication (see MAR) care clustered diversional activity provided quiet environment facilitated Intervention: Provide Person-Centered Care Flowsheets (Taken 04/30/2025 1452) Trust Relationship/Rapport: care explained choices provided questions [...] kg/m?? Labs and medications reviewed. Blood glucose [id number] Medications: Current Scheduled Medications[1] Current Continuous Medications[2] [...] continue to assess need -Follow-up plan: home outside medical sales representative - Anette Kendall -Tentative discharge recommendations: Insulin [...] PGY-4 Division of Endocrinology, Diabetes and Metabolism [facility] Medically Ready for Discharge: [1] atorvastatin, 40 [...] from the original note were not included. [facility] Department of Surgery Division of [...] He is unable to be transferred to [facility] for Podiatry due to weight Edited [...] last 7 days Lab Units 04/30/25 03104/29/25 03004/27/25 2137 CREATININE mg/dL 0.77 0.94 0.84 Medications reviewed. Vital signs reviewed. Labs reviewed. Assessment/Plan Assessment and Plan: Gonzalo Smalls is a 49 y.o. male with PMHx notable for class III obesity, CHF (EF 55% in 2021), paroxsymal atrial fibrillation (on Xarelto), HTN, HLD, T2DM, COPD, QUINN on 2LNC at night, recurrent UTIswho presented to [facility] with nonhealing right foot wound. Radiographs significant for cortical degeneration of fifth metatarsal and exam with evidence of exposed bone; high degree of suspicion for osteomyelitis Plan for foot debridement with possible 5th and 4th toe amputation tomorrow. Plan: -Please make the pt NPO tonight Edited by: Leidy Velasco MD at 04/29/2025 181 Dispo: Continue Current Level of Care Alejandra [...] kg/m?? Labs and medications reviewed. Blood glucose [id number] Medications: Current Scheduled Medications[1] Current Continuous [...] continue to assess need -Follow-up plan: home outside medical sales representative - Anette Kendall -Tentative discharge recommendations: Insulin [...] Division of Endocrinology, Diabetes and Metabolism [facility] Diabetes [facility] [1] atorvastatin, 40 mg, Oral, Nightly [...] rec amputation but we can transfer to [facility] for pod input about the surgery for the DM wound Vas team do not feel a debridement would sufficiently treat his wound. Reached out to APT team and plan to transfer him to [facility] Review of Systems Pain in right [...] consulted and rec amputation vs transfer to [facility] for podiatry input about foot salvage - transfer is initiated today #Type 2 DM #Neuropathy - home regimen: Metformin 1 g BID Regular Insulin 225 units BID - home meds: Gabapentin 600 mg TID - DM team consulted - FSBS per protocol - 2CC diet #UTI #Recurrent UTI #BPH - Rios in place due to in an adequate bladder emptying - home meds: Flomax Plan - Rios care per protocol - Continue home Flomax [...] is no abdominal tenderness. Genitourinary: Comments: Rios in place Musculoskeletal: General: Swelling present. Normal [...] continue to assess need -Follow-up plan: home outside medical sales representative - Anette Kendlal -Tentative discharge recommendations: Insulin regimen - TBD [...] Adult Inpatient Diabetes team via secure chat orpaErrand Boy Delivery Business Plan us at [phone] during 7a-7p, Thursday-Thursday. For after hours please [...] Note Gonzalo Smalls 49 y.o. male CSN: [id number] Admission: 04/27/2025 9:29 PM Primary Problem: Diabetic foot ulcer Vegetables Cook reviewed chart and spoke with patient at bedside to complete this Initial Case Management Assessment. PCP: Malcolm Hayward APRN Emergency Contact: Extended Emergency Contact Information Primary Emergency Contact: Maggie Smalls Mobile Relation: Spouse Preferred language: Zimbabwean Greenhouse Technician needed? No Insurance: Primary Visit Coverage Payer Plan Sponsor Code Group Number Group Name THIAGO SOTOMAYOR/[facility] [id number] BASIC PPO LTD Primary Visit Coverage Subscriber Subscriber ID Subscriber Name Subscriber N Subscriber Address [id number] GONZALO SMALLS [id number] [address] [place] [address] Secondary Visit Coverage Payer Plan Sponsor Code Group Number Group Name MEDICARE MEDICARE A & B Secondary Visit Coverage Subscriber Subscriber ID Subscriber Name Subscriber [facility] Subscriber Address [id number] GONZALO SMALLS [phone] [address] [facility] Patient information: Primary Caregiver: Self Support System: Immediate family Daily Living Activities: Functional Status: Minimum assistance Living Arrangements: Spouse/Significant other, Children (daughter) Type of Residence: Private residence, Single Level ([address]) [address] [facility] Smoker in the Home?: No Current DME: [...] line dressing changes Living Will/Advance Directive/Power of Document Control Clerk /Guardian: None Additional Comments: Patient admitted for worsening right diabetic foot ulcer. Vascular surgery consulted. ID consulted.Endocrine consulted. RNCM will continue to monitor for further discharge needs. Mayra Apodaca RN * Progress Notes - Oo, Yadana, MD - 04/28/2025 1:24 PM EDT Seen and examined. ID vascular team has consulted Tony to continue * Consults - Janis Wheeler MD - 04/28/2025 12:26 PM EDTAssociated Order(s): Inpatient consult to Vascular Surgery Images from the original note were not included. [facility] Department of Surgery Division of Vascular Surgery History & Physical Note Reason for Consult: Right foot diabetic wound with findings consistent with osteomyelitis Requesting Service: Hospital Medicine Consult Date and Time: 04/28/2025 @ 0923 Inpatient consult to Vascular Surgery Consult performed by: Janis Wheeler MD Consult ordered by: Sy De La Fuente APRN, DENISE Subjective History of Present Illness: Chief Complaint: right foot wound Gonzalo Smalls is a 49 y.o. male with PMHx significant for class III obesity, CHF (EF 55% in 2021),paroxsymal atrial fibrillation (on Xarelto), HTN, HLD, T2DM, COPD, QUINN on 2LNC at night, recurrent UTIs who presented to [facility] on 04/27/2025 with right foot wound. He [...] Connections: Unknown (04/24/2023) Received from [facility] Family and Community Support Help with [...] History Administered Date(s) Administered Moderna COVID-19 Vaccine (Principal Scientist) 12+ years 01/25/2021, 02/22/2021 Pneumococcal Conjugate PCV [...] a day. 09/05/21 Yes Provider, Historical HYDROcodone-acetaminophen ([place]) 10-325 MG tablet Take 1 tablet by [...] Yes Provider, Historical Insulin Pen Needle ([place]) 31G X 5 MM [facility] USE TO INJECT INSULIN 3 TIMES PER [...] night, recurrent UTIswho presented to [facility] with nonhealing right foot wound. [...] and Plan has been discussed with Dr. Iabrra, Attending Physician Janis Wheeler MD General Surgery, [...] La Fuente APRN, DNP 40 mg at 04/28/25 0848 polyethylene glycol (Miralax) packet 17 g 17 g Oral Daily Sy De La Fuente APRN, DNP [Held by provider] rivaroxaban (Xarelto) tablet 20 mg 20 mg Oral Daily Sy De La Fuente APRN, DNP sodium chloride 0.9 % flush 10 mL 10 mL Intravenous q12h Sy De La Fuente APRN DENISE 10 mL at 04/28/25 0850 And sodium chloride 0.9 % flush 10 mL 10 mL Intravenous PRN Sy De La Fuente APRDENISE Hardin spironolactone (Aldactone) tablet 100 mg 100 mg Oral Daily Sy De La Fuente APRDENISE Hardin 100 mg at 04/28/25 0849 tamsulosin (Flomax) 24 hr capsule 0.4 mg 0.4 mg Oral Daily Sy De La Fuente APRDENIES Hardin 0.4 mg at 04/28/25 0848 traZODone (Desyrel) tablet 100 mg 100 mg Oral Nightly Sy De La FuenteADALGISA DNP venlafaxine XR (Effexor-XR) 24 hr capsule 150 mg 150 mg Oral Daily Sy De La Fuente APRNDENISE 150 mgat 04/28/25 0848 Current Outpatient Medications [...] by mouth 3 times a day. HYDROcodone-acetaminophen ([place]) 10-325 MG tablet Take 1 tablet by [...] by mouth daily. Insulin Pen Needle ([place]) 31G X 5 MM misc USE TO [...] [X] Family [ ] Friend [ ] Greenhouse Technician [X] Medical records HISTORY OF PRESENT ILLNESS: [...] habits. 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 Per outside records, was recently diagnosed with balanitis. He states that he has recurrent urinary tract infections and was treated in theemergency department at [facility] a few days ago where a [...] foot ulcers on the right side. His Rios catheter was changed when he was in the ED 2-3 days ago at [facility]. I contacted OSH who report blood [...] a day. 09/05/21 Yes Provider, Historical HYDROcodone-acetaminophen ([place]) 10-325 MG tablet Take 1 tablet by [...] Yes Provider, Historical Insulin Pen Needle ([place]) 31G X 5 MM misc USE TO [...] May be mixed together for application. 01/10/25 Christine, Abigail EARNELN polyethylene glycol (Miralax) 17 g packet Take [...] DFU - Urinary retention with Chronic Indwelling Rios - Recurrent UTI with recent history of [...] Will follow-up blood and urine cultures from [facility] for further ID/susceptibilities, obtained 04/25 - Please obtain adult ID screening labs: Hep A IgG, Hep B sAb, Hep B sAg, and Hep B total core Ab - Plan of care and recommendations discussed with patient's primary provider Thank you for allowing us to participate in this patient's care. ID will follow. Janelle Phan PA-C Division of Infectious Diseases Available by [employer] Chat History, assessment, and plan discussed with [...] PRN Sy De La Fuente APRN, DNP 5mg at 04/28/25 0849 pantoprazole (Protonix) EC tablet [...] mL Intravenous q12h Sy De La Fuente APRN DENISE 10 mL at 04/28/25 0850 And sodium chloride 0.9 % flush 10 mL 10 mL Intravenous PRN Sy De La Fuente DENISE DIANA spironolactone (Aldactone) tablet 100 mg 100 mg Oral Daily Sy De La Fuente APRDENISE Hardin 100 mg at 04/28/25 0849 tamsulosin (Flomax) 24 hr capsule 0.4 mg 0.4 mg Oral Daily Sy De La Fuente APRNDENISE 0.4 mg at 04/28/25 0848 traZODone (Desyrel) tablet 100 mg 100 mg Oral Nightly Sy De La FuenteADALGISA DNP venlafaxine XR (Effexor-XR) 24 hr capsule 150 mg 150 mg Oral Daily Sy De La Fuente APRNDENISE 150 mgat 04/28/25 0848 Current Outpatient Medications [...] by mouth 3 times a day. HYDROcodone-acetaminophen ([place]) 10-325 MG tablet Take 1 tablet by [...] by mouth daily. Insulin Pen Needle ([place]) 31G X 5 MM misc USE TO [...] back pain 04/22/2019 Hypertension 02/18/2019 Morbid obesity ([facility]) 12/24/2016 Procedures Past Medical History Patient has a past medical history of Acute kidney injury (05/19/2024), Alcohol abuse, in remission, Anxiety disorder, unspecified, Arthritis, Atrial fibrillation ([facility]), CAP (community acquired pneumonia) (05/19/2024), Cellulitis (05/19/2024), [...] in Care Family/Caregiver Present: Yes Family/Caregiver: Spouse Greenhouse Technician: Not Applicable Presentation Oxygen Therapy: None (Room [...] Needs assist Patient/Family Goals [facility]. Objective Pain Pt reports 7/10 pain in [...] pain. Bed Mobility Exam: Rolling/Turning Level of [place]: Maximum assist (25% patient effort) Physical/Nonphysical Assist: Verbal Cues, Moderate cues Assistive Device: Bed rails, Other (DEFENSE ANALYST) Bed Mobility Exam: Scooting/Bridging Level of Green[place]: Maximum assist (25% patient's effort) (up in bed; Lester forward at EOB) Physical/Nonphysical Assist: Verbal Cues, Moderate cues Assistive Device: Bed rails Bed Mobility Exam: Supine to Sit Level of Greenlee: Maximum assist (25% patient's effort) Physical/Nonphysical Assist: Verbal Cues, Moderate cues, Set-up required, Additional assist utilized for safety Assistive Device: Other (DEFENSE ANALYST) Bed Mobility Exam: Sit to Supine Level of Greenlee: Maximum assist (25% patient's effort) Physical/Nonphysical Assist: [...] space Standardized Assessments Standardized Assessments Standardized Assessments: [facility] 6-Clicks Mobility Assessment [facility] 6-Clicks Mobility Assessment Difficulty patient has turning [...] climbing 3-5 steps with a railing?: Unable [facility] 6-Clicks Mobility Assessment Total : 8 No [...] remission, Anxiety disorder, unspecified, Arthritis, Atrial fibrillation ([facility]), CAP (community acquired pneumonia) (05/19/2024), Cellulitis (05/19/2024), [...] CARE Subjective Pt reports Visitors Present Spouse Greenhouse Technician (if applicable) PRESENTATION Oxygen Room Air Telemetry [...] help from Spouse Level of Mobility Mobility Greenlee History of Falls ADL Performance ADL Performance: [...] Mobility Bed Mobility Exam: Rolling/Turning Level of Greenlee: Maximum assist (25% patient effort) Physical/Nonphysical Assist: Verbal Cues, Moderate cues Assistive Device: Bed rails, Other (DEFENSE ANALYST) Bed Mobility Exam: Scooting/Bridging Level of Greenlee: Maximum assist (25% patient's effort) (up in bed; Lester forward at EOB) Physical/Nonphysical Assist: Verbal Cues, Moderate cues Assistive Device: Bed rails Bed Mobility Exam: Supine to Sit Level of Greenlee: Maximum assist (25% patient's effort) Physical/Nonphysical Assist: Verbal Cues, Moderate cues, Set-up required, Additional assist utilized for safety Assistive Device: Other (DEFENSE ANALYST) Bed Mobility Exam: Sit to Supine Level of Greenlee: Maximum assist (25% patient's effort) Physical/Nonphysical Assist: [...] POC an d discharge recommendations. STANDARDIZED ASSESSMENTS [facility] 6-Click Daily Activities Help from Other: Don/Doff Regular Lower Body Clothings: A lot Help From Other: Bathing: A lot Help From Other: Toileting: A lot Help From Other: Don/Doff Upper Body Clothings: None Help From Other: Grooming: None Help From Other: Eating Meals: None [facility] 6 Click - Daily Activities Score: [...] for recurrent UTI and has a chronic Rios. Per chart review it appears that the [...] Lunch: leftovers/baked oatmeal Dinner: take out/cooking - [place] [email or web address], cracker barrel Snacks: peanut butter crackers, cheese [...] remission, Anxiety disorder, unspecified, Arthritis, Atrial fibrillation ([facility]/HCC), CAP (community acquired pneumonia) (05/19/2024), Cellulitis (05/19/2024), [...] Positive for difficulty urinating. Retention, active UTI, rios in place Skin: Positive for wound (right [...] is no abdominal tenderness. Genitourinary: Comments: Rios in place Musculoskeletal: General: Swelling present. Normal [...] continue to assess need -Follow-up plan: home outside medical sales representative - Anette Kendall -Tentative discharge recommendations: Insulin [...] team via secure chat orpage us at [phone] during 7a-7p, Thursday-Thursday. For after hours please [...] by mouth 3 times a day. HYDROcodone-acetaminophen ([place]) 10-325 MG tablet Take 1 tablet by [...] by mouth daily. Insulin Pen Needle ([place]) 31G X 5 MM [facility] USE TO INJECT INSULIN 3 TIMES PER [...] 04/28/2025 6:09 AM EDTAssociated Order(s): Consult to [facility] Images from the original note were not included. Consult to [facility] Consult performed by: Sy De La Fuente [...] for recurrent UTI and has a chronic Rios. Per chart review it appears t hat [...] questions if refills are denied. 12/17/24 Rachael Berrios, ADALGISA albuterol 108 (90 Base) MCG/ACT inhaler Inhale 2 puffs every 4 to 6 hours as needed for wheezing or shortness of breath. Provider, Historical atorvastatin (Lipitor) 40 [...] times a day. 09/05/21 Provider, Historical HYDROcodone-acetaminophen ([place]) 10-325 MG tablet Take 1 tablet by mouth every 6 hours as needed. Provider, Historical insulin NPH-insulin regular (NovoLIN 70/30 FlexPen) (70-30) 100 UNIT/ML injection pen Inject 90 Units under the skin 3 times a day before meals. FURTHER REFILLS WILL BE PROVIDED UPON ATTENDANCE OF NEXT OFFICE VISIT 03/29/25 02/22/25 Divine Archer APRN Insulin Pen Needle ([place]) 31G X 5 MM [facility] USE TO INJECT INSULIN 3 TIMES PER [...] Value Units Date/Time Blood Culture (Aerobic/Anaerobet Set) [[id number]] Collected: 04/27/252215 Order Status: Completed Specimen: Blood, Venous Updated: 04/28/25111 Culture Culture in lab Blood Culture (Aerobic/Anaerobet Set) [[id number]] Collected: 04/27/252215 Order Status: Completed Specimen: Blood, [...] 2CC diet #UTI #Recurrent UTI #BPH - Rios in place due to in an adequate bladder emptying - PICC in place for IV intrapartum 1 g for 7 days - home meds: Flomax Plan - Rios care per protocol - Hold IV antibiotics, [...] daily #Morbid Obesity - failed gastric sleeve, Luciaic, 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 History provided by: Patient park interpreter used: No I agree with the above [...] ???kidney infection?? where he was admitted at [facility]. Patient denies any shortness of breath, [...] records from his previous hospital visit at [facility] which showed he was being treated for an ESBL E coli UTI from the ertapenem and in discussion with our pharmacy team we initiated 1 dose of Merrem here in the ED as this would be appropriate coverage for the foot infection as well as this ESBL UTI. Patient was stable during hospital stay in the ED.Patient was admitted to Internal Medicine for osteomyelitis [...] Ordered Status Ordering Provider 04/28/25541 Consult to [facility] Steve Once Specialty: Internal Medicine Provider: (Not yet assigned) Acknowledged SUMAN REYES 04/28/25541 ED to floor bed request Once Acknowledged SUMAN REYES 10/17/25 0542 Once Specialty: Orthopaedic Surgery Provider: (Not yet assigned) Canceled SUMAN REYES Josafat 04/27/252223 CT Foot Right w IV Contrast Once Final result JESSA SIU 04/27/252223 Sed rate, automated STAT Final result JESSA SIU 04/27/252154 Beta-Hydroxybutyric Acid STAT Final result SUMAN REYES Josafat 04/27/252154 Blood gas, venous STAT Final result SUMAN REYES Josafat 04/27/252154 Blood Culture (Aerobic/Anaerobet Set) STAT Preliminary result SUMAN REYES Josafat 04/27/252154 Blood Culture (Aerobic/Anaerobet Set) STAT Preliminary result MICKEYLUIS MIGUEL SUMAN A 04/27/252154 Magnesium STAT Final result MICKEYLUIS MIGUEL SUMAN A 04/27/252154 Type and screen Start now Final result ROSA ISELA SUMAN Josafat 04/27/252154 XR Foot Right 3+ Views Once Final result MICKEYLUIS MIGUEL SUMAN A 04/27/252106 Hepatitis C Antibody - ED Once Final result ERMA MADHU Blackman 04/27/252106 ED Protocol - HIV 1/2 Antibody/Antigen Screen Once Final result ERMA MADHU M 04/27/252106 ED HIV 1/2 Antibody/Antigen Screen w/Reflex to HIV 1/2 Differentiation PROCEDURE ONCE Final result RITCHIE MADHU Blackman 04/27/252106 BMP STAT Final result ERMA MADHU Blackman 04/27/252106 CBC w/diff STAT Final result ERMA MADHU M 04/27/252106 C-reactive protein STAT Final result ERMA MADHU Blackman 04/27/252106 Insert peripheral IV Continuous Acknowledged MADHU RITCHIE ED Course as of 05/07/25 1047 Michaelle Apr 27, 20252216 Magnesium(!) Repleting mag [SH] 2217 CBC w/diff(!) Leukocytosis with left shift concerning for acute infection, correlates with the foot infection. [SH] 9 Blood gas, venous(!) No acidosis or bicarb depletion. Low concern for DKA [SH] ThuApr 28, 2025 0238 Spoke with pharmacy team, patient had ertapenem coverage and we expanded to Merrem for 1 time dose prior to likely admission given the lack of Pseudomonas coverage. I spoke with the margin clerk to tryto get records from [facility] to see why he was being treated with ertapenem for UTIs. [] 0625 Magnesium(!) Repleted [SH] 0626 CT Foot Right w IV Contrast osteo [SH] Shefali May 07, 2025 1045 XR Foot Right 3+ Views [DL] ED Course User Index [DL] Jessa Siu MD [SH] Suman Reyes DO Clinical Impressions as of 05/07/25 1047 [...] performed and thedecisions made by me. Suman Reyes DO Resident 04/28/25 06 Suman Reyes DO Resident 05/04/25 1221 I saw and [...] the comment field Red man syndrome Jessa Siu MD 05/07/25 1047 * ED Triage Notes - Francisco Javier Hansen RN - 04/27/2025 7:16 PM EDT Pt endorsing diabetic wound to his R foot x2-3 months. documented in this encounter Plan of Treatment Upcoming Encounters Date Type Department Care Team (Late st Contact Info) Description 08/10/2025 11:20 AM EST Office Visit [facility] [address]th Floor [address] [place] [address] Mary Vicente MD [address] [place] [address] Scheduled Orders Name Type Priority Associated Diagnoses [...] ANTIBODY IGG Routine 05/03/2025 3:16 AM EDT HC HEP B CORE AB TEST, TOTAL - HEPATITIS B CORE ANTIBODY, TOTAL Routine 05/03/2025 3:16 AM EDT HC HBSAG [...] PM EDT VAS ANKLE BRACHIAL INDEX - GBABI ONLY Routine 04/28/2025 3:16 PM EDT MULTI [...] POCT glucose meter (05/18/2025 8:09 AM EST) Pathologist [facility] POCT Glucose 124(H) 74 - 99 mg/dL [...] 05/18/2025 8:11 AM EST [facility] Hydraulic Lift Operator ID Char Hinojosa 05/18/2025 8:11 AM EST [facility] Device ID [id number] 05/18/2025 8:11 AM EST [facility] Specimen Type POC Capillary 05/18/2025 8:11 AM EST [facility] Blood Capillary blood specimen / Unknown 05/18/2025 8:09 AM EST 05/18/2025 8:11 AM EST us Kazar R Jay Jay DO LAB POINT OF CARE TE ST DOCKED DEVICE UNSOLICITED RESULTS Final Result [facility] [address] [place] [address] * (ABNORMAL) POCT glucose meter (05/17/2025 7:54 [...] 05/17/2025 7:55 PM EST [facility] Hydraulic Lift Operator ID Ron Lal 7:55 PM EST [facility] Device ID [id number] 05/17/2025 7:55 PM EST [facility] Specimen Type POC Capillary 05/17/2025 7:55 PM EST [facility] Blood Capillary blood specimen / Unknown 05/17/2025 7:54 PM EST 05/17/2025 7:55 PM EST Wily Goyal DO LAB POINT OF CARE TE ST DOCKED DEVICE UNSOLICITED RESULTS Final Result Performing Organization Address City/State/[facility] Co de Phone Number [facility] [address] [place] [address] * (ABNORMAL) POCT glucose meter (05/17/2025 5:13 PM EST) [facility] POCT Glucose 186(H) 74 - 99 [...] 05/17/2025 5:14 PM EST [facility] Hydraulic Lift Operator ID Char Hinojosa 05/17/2025 5:14 PM EST [facility] Device ID [id number] 05/17/2025 5:14 PM EST [facility] Specimen Type POC Capillary 05/17/2025 5:14 PM EST [facility] Blood Capillary blood specimen / Unknown 05/17/2025 5:13 PM EST 05/17/2025 5:14 PM EST [facility] R Jay Jay DO LAB POINT OF CARE TE ST DOCKED DEVICE UNSOLICITED RESULTS Final Result Performing Organization Address City/[facility] Co de Phone Number [facility] [address] [place] [address] * (ABNORMAL) POCT glucose meter (05/17/2025 1:01 PM EST) POCT Glucose 191(H) 74 - 99 mg/dL 05/31/2025 3:12 PM EST [facility] Comment:Accuracy of a glucos e result [...] for testing. Comment 05/31/2025 3:12 PM EST [facility] Hydraulic Lift Operator ID Char Hinojosa 05/31/2025 3:12 PM EST [facility] Device ID [id number] 05/31/2025 3:12 PM EST [facility] Specimen Type POC Capillary 05/31/2025 3:12 PM EST [facility] Blood Capillary blood specimen / Unknown 05/17/2025 1:01 PM EST 05/31/2025 3:12 PM EST [facility] POINT OF CARE TE ST DOCKED DEVICE UNSOLICITED RESULTS Final Result Performing Organization Address City/[facility] Co de Phone Number [facility] [address] [place] [address] * ECHO, ADULT TRANSTHORACIC COMPLETE W/ CONTRAST [...] Ao Diam 37 mm HANK ISCV PA SD(ACCEL) 24.6 mmHg HANK ISCV LV mean PG [...] is no recent study available for direct fzni-ob-[id number] comparison. Left Ventricle The left ventricle is [...] is no recent study available for direct [id number] comparison. Wily Goyal DO CV ECHO PROCEDURES Final Result * (ABNORMAL) POCT glucose meter (05/17/2025 8:52 AM EST) POCT Glucose 225(H) 74 - 99 mg/dL 05/31/2025 3:12 PM EST [facility] Comment:Accuracy of a glucos e result [...] for testing. Comment 05/31/2025 3:12 PM EST [facility] Hydraulic Lift Operator ID Char Hinojosa 05/31/2025 3:12 PM EST [facility] Device ID [id number] 05/31/2025 3:12 PM EST [facility] Specimen Type POC Capillary 05/31/2025 3:12 PM EST [facility] Blood Capillary blood specimen / Unknown 05/17/2025 8:52 AM EST 05/31/2025 3:12 PM EST Umar R Jay Jay DO LAB POINT OF CARE TE ST DOCKED DEVICE UNSOLICITED RESULTS Final Result [facility] [address] [place] [address] * (ABNORMAL) POCT glucose meter (05/16/2025 9:28 PM EST) [facility] POCT Glucose 199(H) 74 - 99 mg/dL 05/31/2025 3:12 PM EST [facility] Comment:Accuracy of [...] 05/31/2025 3:12 PM EST [facility] Hydraulic Lift Operator ID Jamal Soriano 3:12 PM EST [facility] Device ID [id number] 05/31/2025 3:12 PM EST [facility] Specimen Type POC Capillary 05/31/2025 3:12 PM EST [facility] Blood Capillary blood specimen / Unknown 05/16/2025 9:28 PM EST 05/31/2025 3:12 PM EST Umar R Jay Jay DO LAB POINT OF CARE TE ST DOCKED DEVICE UNSOLICITED RESULTS Final Result [facility] [address] [place] [address] * (ABNORMAL) POCT glucose meter (05/16/2025 5:37 PM EST) [facility] POCT Glucose 283(H) 74 - [...] 05/16/2025 5:39 PM EST [facility] Hydraulic Lift Operator ID Char Hinojosa 05/16/2025 5:39 PM EST [facility] Device ID [id number] 05/16/2025 5:39 PM EST [facility] Specimen Type POC Capillary 05/16/2025 5:39 PM EST [facility] Blood Capillary blood specimen / Unknown 05/16/2025 5:37 PM EST 05/16/2025 5:39 PM EST Wily R Jay Jay DO LAB POINT OF CARE TE ST DOCKED DEVICE UNSOLICITED RESULTS Final Result [facility] [address] [place] [address] * ECG Adult (05/16/2025 3:33 PM EST) EKG DIAGNOSIS CLASS Abnormal MUSE ECG Ventricular Rate 58 BPM MUSE ECG Atrial Rate 58 BPM MUSE ECG SD Interval 184 ms MUSE ECG QRSD Interval 158 ms MUSE ECG QT Interval 496 ms MUSE ECG QTC Interval 486 ms MUSE ECG P Diamond 30 degrees MUSE ECG R Diamond -35 degrees MUSE ECG T Wave Diamond -5 degrees MUSE ECG Diagnosis Sinus bradycardia [...] 3:33 PM EST 05/18/2025 12:15 AM EST [facility] ECG ORDERABLES Final [...] 05/16/2025 12:07 PM EST [facility] Hydraulic Lift Operator ID Char Hinojosa 05/16/2025 12:07 PM EST [facility] Device ID [id number] 05/16/2025 12:07 PM EST [facility] Specimen Type POC Capillary 05/16/2025 12:07 PM EST [facility] Blood Capillary blood specimen / Unknown 05/16/2025 12:06 PM EST 05/16/2025 12:07 PM EST us Selin Lee MD LAB POINT OF CARE TE ST DOCKED DEVICE UNSOLICITED RESULTS Final Result Performing Organization Address City/[facility]/ZIP Co de Phone Number [facility] [address] [place] [address] * (ABNORMAL) POCT glucose meter (05/16/2025 8:17 [...] 05/16/2025 8:21 AM EST [facility] Hydraulic Lift Operator ID Char Hinojosa 05/16/2025 8:21 AM EST [facility] Device ID [id number] 05/16/2025 8:21 AM EST [facility] Specimen Type POC Capillary 05/16/2025 8:21 AM EST [facility] Blood Capillary blood specimen / Unknown 05/16/2025 8:17 AM EST 05/16/2025 8:21 AM EST us Selin Lee MD LAB POINT OF CARE TE ST DOCKED DEVICE UNSOLICITED RESULTS Final Result Performing Organization Address City/[facility]/ZIP Co de Phone Number [facility] [address] [place] [address] * (ABNORMAL) CBC and Differential (05/16/2025 4:08 AM EST) [facility] WBC Count 7.97 3.70 - 10.30 10*3/uL LAB HEMATOLOGY METHOD 05/16/2025 4:26 AM [facility] RBC Count 4.27(L) 4.60 - 6.10 10*6/uL LAB HEMATOLOGY METHOD 05/16/2025 4:26 AM [facility] HGB 9.5(L) 13.7 - 17.5 g/dL LAB HEMATOLOGY METHOD 05/16/2025 4:26 AM [facility] HCT 31.6(L) 40.0 - 51.0 % LAB HEMATOLOGY METHOD 05/16/2025 4:26 AM [facility] Platelet Count 264 155 - 369 10*3/uL LAB HEMATOLOGY METHOD 05/16/2025 4:26 AM [facility] MCV 74(L) 79 - 98 fL LAB HEMATOLOGY METHOD 05/16/2025 4:26 AM [facility] MCH 22.2(L) 26.0 - 32.0 pg LAB HEMATOLOGY METHOD 05/16/2025 4:26 AM [facility] MCHC 30.1(L) 30.7 - 35.5 g/dL LAB HEMATOLOGY METHOD 05/16/2025 4:26 AM [facility] RDW 17.9(H) 11.5 - 14.5 % LAB HEMATOLOGY METHOD 05/16/2025 4:26 AM [facility] MPV 9.2 8.8 - 12.5 fL LAB HEMATOLOGY METHOD 05/16/2025 4:26 AM [facility] nRBC 0.0 <=0.0 per 100 WBCs LAB HEMATOLOGY METHOD 05/16/2025 4:26 AM [facility] Differential Type Automated LAB HEMATOLOGY METHOD 05/16/2025 4:26 AM [facility] Neutrophils % 67 % LAB HEMATOLOGY METHOD 05/16/2025 4:26 AM [facility] Lymphocytes % 16 % LAB HEMATOLOGY METHOD 05/16/2025 4:26 AM [facility] Monocytes % 12 % LAB HEMATOLOGY METHOD 05/16/2025 4:26 AM [facility] Eosinophils % 3 % LAB HEMATOLOGY METHOD 05/16/2025 4:26 AM [facility] Basophils % 1 % LAB HEMATOLOGY METHOD 05/16/2025 4:26 AM EST [facility] Immature Granulocytes % 1 % LAB HEMATOLOGY METHOD 05/16/2025 4:26 AM EST [facility] Neutrophils Absolute 5.39 1.60 - 6.10 10*3/uL LAB HEMATOLOGY METHOD 05/16/2025 4:26 AM EST [facility] Lymphocytes Absolute 1.30 1.20 - 3.90 10*3/uL LAB HEMATOLOGY METHOD 05/16/2025 4:26 AM EST [facility] Monocytes Absolute 0.93(H) 0.30 - 0.90 10*3/uL LAB HEMATOLOGY METHOD 05/16/2025 4:26 AM EST [facility] Eosinophils Absolute 0.26 0.00 - 0.50 10*3/uL LAB HEMATOLOGY METHOD 05/16/2025 4:26 AM EST [facility] Basophils Absolute 0.05 0.00 - 0.10 10*3/uL LAB HEMATOLOGY METHOD 05/16/2025 4:26 AM EST [facility] Immature Granulocytes Absolute 0.04 0.00 - 0.06 10*3/uL LAB HEMATOLOGY METHOD 05/16/2025 4:26 AM EST [facility] Blood Venous blood specimen / Unknown Venipuncture / Unknown 05/16/2025 4:08 AM EST 05/16/2025 4:17 AM EST Narrative [facility] - 05/16/2025 4:26 AM EST Therapeutic decision making should be based on absolute values, rather than percentages. us Selin Lee MD LAB BLOOD ORDERABLES Final Re sult [facility] [address] [place] [address] * (ABNORMAL) Magnesium, Plasma (05/16/2025 4:08 AM EST) Magnesium, Plasma 1.8(L) 1.9 - 2.4 mg/dL 05/16/2025 4:48 AM EST [facility] Blood Venous blood specimen / Unknown Venipuncture / Unknown 05/16/2025 4:08 AM EST 05/16/2025 4:16 AM EST us Selin Lee MD LAB BLOOD ORDERABLES Final Re sult [facility] [address] [place] [address] * (ABNORMAL) Basic Metabolic Panel, Plasma (05/16/2025 4:08 AM EST) Glucose, Plasma 168(H) 74 - 99 mg/dL 05/16/2025 4:48 AM EST [facility] BUN, Plasma 19 7 - 21 mg/dL 05/16/2025 4:48 AM EST [facility] Creatinine, Plasma 0.86 0.70 - 1.20 mg/dL 05/16/2025 4:48 AM EST [facility] BUN/Creatinine Ratio 22 05/16/2025 4:48 AM EST [facility] Sodium, Plasma 131(L) 136 - 145 mmol/L 05/16/2025 4:48 AM EST [facility] Potassium, Plasma 3.6 3.6 - 4.9 mmol/L 05/16/2025 4:48 AM EST [facility] Chloride, Plasma 88(L) 97 - 107 mmol/L 05/16/2025 4:48 AM EST [facility] CO2, Plasma 34(H) 22 - 29 mmol/L 05/16/2025 4:48 AM EST [facility] Anion Gap 9 6 - 16 mmol/L 05/16/2025 4:48 AM EST [facility] Total Calcium, Plasma 9.3 8.9 - 10.2 mg/dL 05/16/2025 4:48 AM EST [facility] eGFRcr 107.5 mL/min/1.7 3m*2 05/16/2025 4:48 AM EST [facility] Comment:Reported eGFRcr in m L/min/1.73m2 is based the CKD-EPI 2020 equation that does not use a race coefficient. Blood Venous blood specimen / Unknown Venipuncture / Unknown 05/16/2025 4:08 AM EST 05/16/2025 4:16 AM EST us Tehreem K Ramay MD LAB BLOOD ORDERABLES Final Re sult [facility] [address] [place] [address] * Phosphorus, Plasma (05/16/2025 4:08 AM EST) [facility] Phosphorus, Plasma 3.7 2.5 - 4.5 mg/dL 05/16/2025 4:48 AM EST [facility] Blood Venous blood specimen / Unknown Venipuncture / Unknown 05/16/2025 4:08 AM EST 05/16/2025 4:16 AM EST us Selin Lee MD LAB BLOOD ORDERABLES Final Re sult Performing Organization Address [facility] Co de Phone Number [facility] [address] [place] [address] * (ABNORMAL) POCT glucose meter (05/15/2025 8:00 PM EST) [facility] POCT Glucose 190(H) 74 - 99 mg/dL 05/15/2025 8:02 PM EST [facility] Comment:Accuracy of a glucos e [...] for testing. Comment 05/15/2025 8:02 PM EST [facility] Hydraulic Lift Operator ID Timo Campbell 8:02 PM EST [facility] Device ID [id number] 05/15/2025 8:02 PM EST [facility] Specimen Type POC Capillary 05/15/2025 8:02 PM EST [facility] Blood Capillary blood specimen / Unknown 05/15/2025 8:00 PM EST 05/15/2025 8:02 PM EST us Selin Lee MD LAB POINT OF CARE TE ST DOCKED DEVICE UNSOLICITED RESULTS Final Result [facility] [address] [place] [address] * (ABNORMAL) POCT glucose meter (05/15/2025 4:52 PM EST) Pathologist [facility] POCT Glucose 270(H) 74 - 99 [...] 05/15/2025 4:53 PM EST [facility] Hydraulic Lift Operator ID Char Hinojosa 05/15/2025 4:53 PM EST [facility] Device ID [id number] 05/15/2025 4:53 PM EST [facility] Specimen Type POC Capillary 05/15/2025 4:53 PM EST [facility] Blood Capillary blood specimen / Unknown 05/15/2025 4:52 PM EST 05/15/2025 4:53 PM EST Selin Lee MD LAB POINT OF CARE TE ST DOCKED DEVICE UNSOLICITED RESULTS Final Result [facility] [address] [place] [address] * (ABNORMAL) POCT glucose meter (05/15/2025 12:46 PM EST) [facility] POCT Glucose 233(H) 74 - 99 [...] 05/15/2025 12:48 PM EST [facility] Hydraulic Lift Operator ID Santy Garcia 05/15/2025 12:48 PM EST [facility] Device ID [id number] 05/15/2025 12:48 PM EST [facility] Specimen Type POC Capillary 05/15/2025 12:48 PM EST [facility] Blood Capillary blood specimen / Unknown 05/15/2025 12:46 PM EST 05/15/2025 12:48 PM EST us Selin Lee MD LAB POINT OF CARE TE ST DOCKED DEVICE UNSOLICITED RESULTS Final Result Performing Organization Address City/[facility]/ZIP Co de Phone Number [facility] [address] [place] [address] * (ABNORMAL) POCT glucose meter (05/15/2025 11:31 [...] Comment 05/15/2025 11:33 AM EST [facility] Hydraulic Lift Operator ID Char Hinojosa 05/15/2025 11:33 AM EST [facility] Device ID [id number] 05/15/2025 11:33 AM EST [facility] Specimen Type POC Capillary 05/15/2025 11:33 AM EST [facility] Blood Capillary blood specimen / Unknown 05/15/2025 11:31 AM EST 05/15/2025 11:33 AM EST us Selin Lee MD LAB POINT OF CARE TE ST DOCKED DEVICE UNSOLICITED RESULTS Final Result [facility] [address] [place] [address] * (ABNORMAL) POCT glucose meter (05/15/2025 8:12 [...] for testing. Comment 05/15/2025 8:14 AM EST [facility] Hydraulic Lift Operator ID Char Hinojosa 05/15/2025 8:14 AM EST [facility] Device ID [id number] 05/15/2025 8:14 AM EST [facility] Specimen Type POC Capillary 05/15/2025 8:14 AM EST [facility] Blood Capillary blood specimen / Unknown 05/15/2025 8:12 AM EST 05/15/2025 8:14 AM EST Selin Lee MD LAB POINT OF CARE TE ST DOCKED DEVICE UNSOLICITED RESULTS Final Result Performing Organization Address City/State/[facility] Co de Phone Number [facility] [address] [place] [address] * (ABNORMAL) CBC and Differential (05/15/2025 2:24 AM EST) Pathologist [facility] WBC Count 8.81 3.70 - 10.30 10*3/uL LAB HEMATOLOGY METHOD 05/15/2025 2:41 AM EST [facility] RBC Count 4.49(L) 4.60 - 6.10 10*6/uL LAB HEMATOLOGY METHOD 05/15/2025 2:41 AM EST [facility] HGB 9.9(L) 13.7 - 17.5 g/dL LAB HEMATOLOGY METHOD 05/15/2025 2:41 AM EST [facility] HCT 33.3(L) 40.0 - 51.0 % LAB HEMATOLOGY METHOD 05/15/2025 2:41 AM EST [facility] Platelet Count 286 155 - 369 10*3/uL LAB HEMATOLOGY METHOD 05/15/2025 2:41 AM EST [facility] MCV 74(L) 79 - 98 fL LAB HEMATOLOGY METHOD 05/15/2025 2:41 AM EST [facility] MCH 22.0(L) 26.0 - 32.0 pg LAB HEMATOLOGY METHOD 05/15/2025 2:41 AM EST [facility] MCHC 29.7(L) 30.7 - 35.5 g/dL LAB HEMATOLOGY METHOD 05/15/2025 2:41 AM [facility] RDW 17.8(H) 11.5 - 14.5 % LAB HEMATOLOGY METHOD 05/15/2025 2:41 AM [facility] MPV 9.4 8.8 - 12.5 fL LAB HEMATOLOGY METHOD 05/15/2025 2:41 AM [facility] nRBC 0.0 <=0.0 per 100 WBCs LAB HEMATOLOGY METHOD 05/15/2025 2:41 AM [facility] Differential Type Automated LAB HEMATOLOGY METHOD 05/15/2025 2:41 AM [facility] Neutrophils % 71 % LAB HEMATOLOGY METHOD 05/15/2025 2:41 AM [facility] Lymphocytes % 14 % LAB HEMATOLOGY METHOD 05/15/2025 2:41 AM [facility] Monocytes % 11 % LAB HEMATOLOGY METHOD 05/15/2025 2:41 AM [facility] Eosinophils % 3 % LAB HEMATOLOGY METHOD 05/15/2025 2:41 AM [facility] Basophils % 1 % LAB HEMATOLOGY METHOD 05/15/2025 2:41 AM [facility] Immature Granulocytes % 0 % LAB HEMATOLOGY METHOD 05/15/2025 2:41 AM [facility] Neutrophils Absolute 6.25(H) 1.60 - 6.10 10*3/uL LAB HEMATOLOGY METHOD 05/15/2025 2:41 AM [facility] Lymphocytes Absolute 1.27 1.20 - 3.90 10*3/uL LAB HEMATOLOGY METHOD 05/15/2025 2:41 AM [facility] Monocytes Absolute 0.95(H) 0.30 - 0.90 10*3/uL LAB HEMATOLOGY METHOD 05/15/2025 2:41 AM [facility] Eosinophils Absolute 0.27 0.00 - 0.50 10*3/uL LAB HEMATOLOGY METHOD 05/15/2025 2:41 AM [facility] Basophils Absolute 0.04 0.00 - 0.10 10*3/uL LAB HEMATOLOGY METHOD 05/15/2025 2:41 AM [facility] Immature Granulocytes Absolute 0.03 0.00 - 0.06 10*3/uL LAB HEMATOLOGY METHOD 05/15/2025 2:41 AM EST [facility] Blood Venous blood specimen / Unknown Venipuncture / Unknown 05/15/2025 2:24 AM EST 05/15/2025 2:33 AM EST Narrative [facility] - 05/15/2025 2:41 AM EST Therapeutic decision making should be based on absolute values, rather than percentages. us Selin Lee MD LAB BLOOD ORDERABLES Final Re sult Performing Organization Address [facility]/ZIP Co de Phone Number [facility] [address] [place] [address] * (ABNORMAL) Magnesium, Plasma (05/15/2025 2:24 AM EST) Magnesium, Plasma 1.8(L) 1.9 - 2.4 mg/dL 05/15/2025 3:03 AM EST [facility] Blood Venous blood specimen / Unknown Venipuncture / Unknown 05/15/2025 2:24 AM EST 05/15/2025 2:32 AM EST us Selin Lee MD LAB BLOOD ORDERABLES Final Re sult Performing Organization Address [facility]/ZIP Co de Phone Number [facility] [address] [place] [address] * (ABNORMAL) Basic Metabolic Panel, Plasma (05/15/2025 2:24 AM EST) Glucose, Plasma 162(H) 74 - 99 mg/dL 05/15/2025 3:03 AM EST [facility] BUN, Plasma 15 7 - 21 mg/dL 05/15/2025 3:03 AM EST [facility] Creatinine, Plasma 0.91 0.70 - 1.20 mg/dL 05/15/2025 3:03 AM EST [facility] BUN/Creatinine Ratio 16 05/15/2025 3:03 AM EST [facility] Sodium, Plasma 133(L) 136 - 145 mmol/L 05/15/2025 3:03 AM EST [facility] Potassium, Plasma 3.3(L) 3.6 - 4.9 mmol/L 05/15/2025 3:03 AM EST [facility] Chloride, Plasma 87(L) 97 - 107 mmol/L 05/15/2025 3:03 AM EST [facility] CO2, Plasma 37(H) 22 - 29 mmol/L 05/15/2025 3:03 AM EST [facility] Anion Gap 9 6 - 16 mmol/L 05/15/2025 3:03 AM EST [facility] Total Calcium, Plasma 9.2 8.9 - 10.2 mg/dL 05/15/2025 3:03 AM EST [facility] eGFRcr 104.6 mL/min/1.7 3m*2 05/15/2025 3:03 AM EST [facility] Comment:Reported eGFRcr in m L/min/1.73m2 is based the CKD-EPI 2020 equation that does not use a race coefficient. Blood Venous blood specimen / Unknown Venipuncture / Unknown 05/15/2025 2:24 AM EST 05/15/2025 2:32 AM EST Selin Lee MD LAB BLOOD ORDERABLES Final Re sult [facility] [address] [place] [address] * Phosphorus, Plasma (05/15/2025 2:24 AM EST) Phosphorus, Plasma 3.7 2.5 - 4.5 mg/dL 05/15/2025 3:03 AM EST [facility] Blood Venous blood specimen / Unknown Venipuncture / Unknown 05/15/2025 2:24 AM EST 05/15/2025 2:32 AM EST us Selin Lee MD LAB BLOOD ORDERABLES Final Re sult [facility] [address] [place] [address] * (ABNORMAL) POCT glucose meter (05/14/2025 8:09 PM EST) POCT Glucose 194(H) 74 - 99 mg/dL 05/14/2025 8:11 PM EST [facility] Comment:Accuracy of [...] 05/14/2025 8:11 PM EST [facility] Hydraulic Lift Operator ID Stella Coleman 05/14/20 8:11 PM EST [facility] Device ID [id number] 05/14/2025 8:11 PM EST [facility] Specimen Type POC Capillary 05/14/2025 8:11 PM EST [facility] Blood Capillary blood specimen / Unknown 05/14/2025 8:09 PM EST 05/14/2025 8:11 PM EST Selin Lee MD LAB POINT OF CARE TE ST DOCKED DEVICE UNSOLICITED RESULTS Final Result [facility] [address] [place] [address] * (ABNORMAL) POCT glucose meter (05/14/2025 5:10 PM EST) [facility] POCT Glucose 320(H) 74 - 99 [...] 05/14/2025 5:13 PM EST [facility] Hydraulic Lift Operator ID Dunia Montgomery 05/14/2025 5:13 PM EST [facility] Device ID [id number] 05/14/2025 5:13 PM EST [facility] Specimen Type POC Capillary 05/14/2025 5:13 PM EST [facility] Blood Capillary blood specimen / Unknown 05/14/2025 5:10 PM EST 05/14/2025 5:13 PM EST us Selin Lee MD LAB POINT OF CARE TE ST DOCKED DEVICE UNSOLICITED RESULTS Final Result Performing Organization Address [facility] de Phone Number [facility] [address] [place] [address] * (ABNORMAL) POCT glucose meter (05/14/2025 12:15 [...] 05/14/2025 4:51 PM EST [facility] Hydraulic Lift Operator ID Dunia Montgomery 05/14/2025 4:51 PM EST [facility] Device ID [id number] 05/14/2025 4:51 PM EST [facility] Specimen Type POC Capillary 05/14/2025 4:51 PM EST [facility] Blood Capillary blood specimen / Unknown 05/14/2025 12:15 PM EST 05/14/2025 4:51 PM EST us Selin Lee MD LAB POINT OF CARE TE ST DOCKED DEVICE UNSOLICITED RESULTS Final Result Performing Organization Address City/[facility] Co de Phone Number [facility] [address] [place] [address] * (ABNORMAL) POCT glucose meter (05/14/2025 8:30 [...] Comment 05/14/2025 8:33 AM EST [facility] Hydraulic Lift Operator ID Dunia Montgomery 05/14/2025 8:33 AM EST [facility] Device ID [id number] 05/14/2025 8:33 AM EST [facility] Specimen Type POC Capillary 05/14/2025 8:33 AM EST [facility] Blood Capillary blood specimen / Unknown 05/14/2025 8:30 AM EST 05/14/2025 8:33 AM EST us Selin Lee MD LAB POINT OF CARE TE ST DOCKED DEVICE UNSOLICITED RESULTS Final Result Performing Organization Address [facility] Co de Phone Number [facility] [address] [place] [address] * (ABNORMAL) POCT glucose meter (05/14/2025 4:49 AM EST) [facility] POCT Glucose 306(H) 74 - 99 mg/dL 05/31/2025 3:12 PM EST [facility] Comment:Accuracy of a glucos e [...] Comment 05/31/2025 3:12 PM EST [facility] Hydraulic Lift Operator ID Asiya Nix 025 3:12 PM EST [facility] Device ID [id number] 05/31/2025 3:12 PM EST [facility] Specimen Type POC Capillary 05/31/2025 3:12 PM EST [facility] Blood Capillary blood specimen / Unknown 05/14/2025 4:49 AM EST 05/31/2025 3:12 PM EST us Wily Goyal DO LAB POINT OF CARE TE ST DOCKED DEVICE UNSOLICITED RESULTS Final Result Performing Organization Address City/[facility]/ZIP Co de Phone Number [facility] [address] [place] [address] * (ABNORMAL) CBC and Differential (05/14/2025 1:45 AM EDT) WBC Count 7.88 3.70 - 10.30 10*3/uL LAB HEMATOLOGY METHOD 05/14/2025 2:47 AM EST [facility] RBC Count 4.25(L) 4.60 - 6.10 10*6/uL LAB HEMATOLOGY METHOD 05/14/2025 2:47 AM EST [facility] HGB 9.7(L) 13.7 - 17.5 g/dL LAB HEMATOLOGY METHOD 05/14/2025 2:47 AM [facility] HCT 31.7(L) 40.0 - 51.0 % LAB HEMATOLOGY METHOD 05/14/2025 2:47 AM EST [facility] Platelet Count 273 155 - 369 10*3/uL LAB HEMATOLOGY METHOD 05/14/2025 2:47 AM [facility] MCV 75(L) 79 - 98 fL LAB HEMATOLOGY METHOD 05/14/2025 2:47 AM EST [facility] MCH 22.8(L) 26.0 - 32.0 pg LAB HEMATOLOGY METHOD 05/14/2025 2:47 AM [facility] MCHC 30.6(L) 30.7 - 35.5 g/dL LAB HEMATOLOGY METHOD 05/14/2025 2:47 AM [facility] RDW 17.9(H) 11.5 - 14.5 % LAB HEMATOLOGY METHOD 05/14/2025 2:47 AM [facility] MPV 9.6 8.8 - 12.5 fL LAB HEMATOLOGY METHOD 05/14/2025 2:47 AM [facility] nRBC 0.0 <=0.0 per 100 WBCs LAB HEMATOLOGY METHOD 05/14/2025 2:47 AM [facility] Differential Type Automated LAB HEMATOLOGY METHOD 05/14/2025 2:47 AM [facility] Neutrophils % 66 % LAB HEMATOLOGY METHOD 05/14/2025 2:47 AM [facility] Lymphocytes % 18 % LAB HEMATOLOGY METHOD 05/14/2025 2:47 AM [facility] Monocytes % 11 % LAB HEMATOLOGY METHOD 05/14/2025 2:47 AM EST [facility] Eosinophils % 4 % LAB HEMATOLOGY METHOD 05/14/2025 2:47 AM EST [facility] Basophils % 1 % LAB HEMATOLOGY METHOD 05/14/2025 2:47 AM EST [facility] Immature Granulocytes % 0 % LAB HEMATOLOGY METHOD 05/14/2025 2:47 AM EST [facility] Neutrophils Absolute 5.20 1.60 - 6.10 10*3/uL LAB HEMATOLOGY METHOD 05/14/2025 2:47 AM EST [facility] Lymphocytes Absolute 1.44 1.20 - 3.90 10*3/uL LAB HEMATOLOGY METHOD 05/14/2025 2:47 AM EST [facility] Monocytes Absolute 0.85 0.30 - 0.90 10*3/uL LAB HEMATOLOGY METHOD 05/14/2025 2:47 AM EST [facility] Eosinophils Absolute 0.30 0.00 - 0.50 10*3/uL LAB HEMATOLOGY METHOD 05/14/2025 2:47 AM EST [facility] Basophils Absolute 0.06 0.00 - 0.10 10*3/uL LAB HEMATOLOGY METHOD 05/14/2025 2:47 AM EST [facility] Immature Granulocytes Absolute 0.03 0.00 - 0.06 10*3/uL LAB HEMATOLOGY METHOD 05/14/2025 2:47 AM EST [facility] Blood Venous blood specimen / Unknown Venipuncture / Unknown 05/14/2025 1:45 AM EDT 05/14/2025 2:24 AM EST Narrative [facility] - 05/14/2025 2:47 AM EST Therapeutic decision making should be based on absolute values, rather than percentages. us Selin Lee MD LAB BLOOD ORDERABLES Final Re sult [facility] [address] [place] [address] * (ABNORMAL) Magnesium, Plasma (05/14/2025 1:45 AM EDT) Magnesium, Plasma 1.7(L) 1.9 - 2.4 mg/dL 05/14/2025 2:58 AM EST [facility] Blood Venous blood specimen / Unknown Venipuncture / Unknown 05/14/2025 1:45 AM EDT 05/14/2025 2:25 AM EST us Selin Lee MD LAB BLOOD ORDERABLES Final Re sult [facility] [address] [place] [address] * (ABNORMAL) Basic Metabolic Panel, Plasma (05/14/2025 1:45 AM EDT) Glucose, Plasma 282(H) 74 - 99 mg/dL 05/14/2025 2:58 AM EST [facility] BUN, Plasma 16 7 - 21 mg/dL 05/14/2025 2:58 AM EST [facility] Creatinine, Plasma 0.85 0.70 - 1.20 mg/dL 05/14/2025 2:58 AM EST [facility] BUN/Creatinine Ratio 19 05/14/2025 2:58 AM EST [facility] Sodium, Plasma 132(L) 136 - 145 mmol/L 05/14/2025 2:58 AM EST [facility] Potassium, Plasma 3.5(L) 3.6 - 4.9 mmol/L 05/14/2025 2:58 AM EST [facility] Chloride, Plasma 87(L) 97 - 107 mmol/L 05/14/2025 2:58 AM EST [facility] CO2, Plasma 34(H) 22 - 29 mmol/L 05/14/2025 2:58 AM EST [facility] Anion Gap 11 6 - 16 mmol/L 05/14/2025 2:58 AM EST [facility] Total Calcium, Plasma 9.2 8.9 - 10.2 mg/dL 05/14/2025 2:58 AM EST [facility] eGFRcr 107.9 mL/min/1.7 3m*2 05/14/2025 2:58 AM EST [facility] Comment:Reported eGFRcr in m L/min/1.73m2 is based the CKD-EPI 2020 equation that does not use a race coefficient. Blood Venous blood specimen / Unknown Venipuncture / Unknown 05/14/2025 1:45 AM EDT 05/14/2025 2:25 AM EST us Selin Lee MD LAB BLOOD ORDERABLES Final Re sult Performing Organization Address City/[facility]/ZIP Co de Phone Number [facility] [address] [place] [address] * Phosphorus, Plasma (05/14/2025 1:45 AM EDT) Pathologist [facility] Phosphorus, Plasma 3.3 2.5 - 4.5 mg/dL 05/14/2025 2:58 AM EST [facility] Blood Venous blood specimen / Unknown Venipuncture / Unknown 05/14/2025 1:45 AM EDT 05/14/2025 2:25 AM EST us Selin Lee MD LAB BLOOD ORDERABLES Final Re sult Performing Organization Address [facility] Co de Phone Number [facility] [address] [place] [address] * (ABNORMAL) POCT glucose meter (05/13/2025 7:59 PM EDT) [facility] POCT Glucose 257(H) 74 - 99 mg/dL 05/31/2025 3:12 PM EST [facility] Comment:Accuracy of a glucos e result [...] for testing. Comment 05/31/2025 3:12 PM EST [facility] Hydraulic Lift Operator ID Stella Coleman 05/31/20 3:12 PM EST [facility] Device ID [id number] 05/31/2025 3:12 PM EST [facility] Specimen Type POC Capillary 05/31/2025 3:12 PM EST [facility] Blood Capillary blood specimen / Unknown 05/13/2025 7:59 PM EDT 05/31/2025 3:12 PM EST Umar R Jay Jay DO LAB POINT OF CARE TE ST DOCKED DEVICE UNSOLICITED RESULTS Final Result Performing Organization Address City/[facility]/ZIP Co de Phone Number [facility] [address] [place] [address] * (ABNORMAL) POCT glucose meter (05/13/2025 4:58 PM EDT) [facility] POCT Glucose 217(H) 74 - 99 [...] for testing. Comment 05/13/2025 5:00 PM EDT [facility] Hydraulic Lift Operator ID Priyanka Negrete 05/13/20 5:00 PM EDT [facility] Device ID [id number] 05/13/2025 5:00 PM EDT [facility] Specimen Type POC Capillary 05/13/2025 5:00 PM EDT [facility] Blood Capillary blood specimen / Unknown 05/13/2025 4:58 PM EDT 05/13/2025 5:00 PM EDT Result [facility] Selin Lee MD LAB POINT OF CARE TE ST DOCKED DEVICE UNSOLICITED RESULTS Final Result Performing Organization Address [facility] Co de Phone Number [facility] [address] [place] [address] * (ABNORMAL) POCT glucose meter (05/13/2025 11:37 AM EDT) [facility] POCT Glucose 255(H) 74 - 99 [...] 05/13/2025 11:41 AM EDT [facility] Hydraulic Lift Operator ID Priyanka Negrete 05/13/20 11:41 AM EDT [facility] Device ID [id number] 05/13/2025 11:41 AM EDT [facility] Specimen Type POC Capillary 05/13/2025 11:41 AM EDT [facility] Blood Capillary blood specimen / Unknown 05/13/2025 11:37 AM EDT 05/13/2025 11:41 AM EDT us Selin Lee MD LAB POINT OF CARE TE ST DOCKED DEVICE UNSOLICITED RESULTS Final Result Performing Organization Address City/[facility] Co de Phone Number [facility] [address] [place] [address] * (ABNORMAL) POCT glucose meter (05/13/2025 7:42 AM EDT) [facility] POCT Glucose 233(H) 74 - 99 [...] Comment 05/13/2025 7:45 AM EDT [facility] Hydraulic Lift Operator ID Priyanka Negrete 05/13/20 7:45 AM EDT [facility] Device ID [id number] 05/13/2025 7:45 AM EDT [facility] Specimen Type POC Capillary 05/13/2025 7:45 AM EDT [facility] Blood Capillary blood specimen / Unknown 05/13/2025 7:42 AM EDT 05/13/2025 7:45 AM EDT us Selin Lee MD LAB POINT OF CARE TE ST DOCKED DEVICE UNSOLICITED RESULTS Final Result Performing Organization Address City/[facility]/ZIP Co de Phone Number [facility] [address] [place] [address] * (ABNORMAL) CBC and Differential (05/13/2025 3:54 AM EDT) [facility] WBC Count 7.92 3.70 - 10.30 10*3/uL LAB HEMATOLOGY METHOD 05/13/2025 4:11 AM EDT [facility] RBC Count 4.40(L) 4.60 - 6.10 10*6/uL LAB HEMATOLOGY METHOD 05/13/2025 4:11 AM EDT [facility] HGB 9.9(L) 13.7 - 17.5 g/dL LAB HEMATOLOGY METHOD 05/13/2025 4:11 AM EDT [facility] HCT 33.0(L) 40.0 - 51.0 % LAB HEMATOLOGY METHOD 05/13/2025 4:11 AM EDT [facility] Platelet Count 276 155 - 369 10*3/uL LAB HEMATOLOGY METHOD 05/13/2025 4:11 AM EDT [facility] MCV 75(L) 79 - 98 fL LAB HEMATOLOGY METHOD 05/13/2025 4:11 AM EDT [facility] MCH 22.5(L) 26.0 - 32.0 pg LAB HEMATOLOGY METHOD 05/13/2025 4:11 AM EDT [facility] MCHC 30.0(L) 30.7 - 35.5 g/dL LAB HEMATOLOGY METHOD 05/13/2025 4:11 AM EDT [facility] RDW 17.8(H) 11.5 - 14.5 % LAB HEMATOLOGY METHOD 05/13/2025 4:11 AM EDT [facility] MPV 9.3 8.8 - 12.5 fL LAB HEMATOLOGY METHOD 05/13/2025 4:11 AM EDT [facility] nRBC 0.0 <=0.0 per 100 WBCs LAB HEMATOLOGY METHOD 05/13/2025 4:11 AM EDT [facility] Differential Type Automated LAB HEMATOLOGY METHOD 05/13/2025 4:11 AM EDT [facility] Neutrophils % 69 % LAB HEMATOLOGY METHOD 05/13/2025 4:11 AM EDT [facility] Lymphocytes % 17 % LAB HEMATOLOGY METHOD 05/13/2025 4:11 AM EDT [facility] Monocytes % 10 % LAB HEMATOLOGY METHOD 05/13/2025 4:11 AM EDT [facility] Eosinophils % 3 % LAB HEMATOLOGY METHOD 05/13/2025 4:11 AM EDT [facility] Basophils % 1 % LAB HEMATOLOGY METHOD 05/13/2025 4:11 AM EDT [facility] Immature Granulocytes % 0 % LAB HEMATOLOGY METHOD 05/13/2025 4:11 AM EDT [facility] Neutrophils Absolute 5.47 1.60 - 6.10 10*3/uL LAB HEMATOLOGY METHOD 05/13/2025 4:11 AM EDT [facility] Lymphocytes Absolute 1.33 1.20 - 3.90 10*3/uL LAB HEMATOLOGY METHOD 05/13/2025 4:11 AM EDT [facility] Monocytes Absolute 0.78 0.30 - 0.90 10*3/uL LAB HEMATOLOGY METHOD 05/13/2025 4:11 AM EDT [facility] Eosinophils Absolute 0.27 0.00 - 0.50 10*3/uL LAB HEMATOLOGY METHOD 05/13/2025 4:11 AM EDT [facility] Basophils Absolute 0.04 0.00 - 0.10 10*3/uL LAB HEMATOLOGY METHOD 05/13/2025 4:11 AM EDT [facility] Immature Granulocytes Absolute 0.03 0.00 - 0.06 10*3/uL LAB HEMATOLOGY METHOD 05/13/2025 4:11 AM EDT [facility] Blood Venous blood specimen / Unknown Venipuncture / Unknown 05/13/2025 3:54 AM EDT 05/13/2025 4:01 AM EDT Narrative [facility] - 05/13/2025 4:11 AM EDT Therapeutic decision making should be based on absolute values, rather than percentages. us Selin Lee MD LAB BLOOD ORDERABLES Final Re sult [facility] [address] [place] [address] * Magnesium, Plasma (05/13/2025 3:54 AM EDT) Magnesium, Plasma 1.9 1.9 - 2.4 mg/dL 05/13/2025 4:28 AM EDT [facility] Blood Venous blood specimen / Unknown Venipuncture / Unknown 05/13/2025 3:54 AM EDT 05/13/2025 4:01 AM EDT us Selin Lee MD LAB BLOOD ORDERABLES Final Re sult [facility] [address] [place] [address] * (ABNORMAL) Basic Metabolic Panel, Plasma (05/13/2025 3:54 AM EDT) Glucose, Plasma 238(H) 74 - 99 mg/dL 05/13/2025 4:28 AM EDT [facility] BUN, Plasma 16 7 - 21 mg/dL 05/13/2025 4:28 AM EDT [facility] Creatinine, Plasma 0.96 0.70 - 1.20 mg/dL 05/13/2025 4:28 AM EDT [facility] BUN/Creatinine Ratio 17 05/13/2025 4:28 AM EDT [facility] Sodium, Plasma 131(L) 136 - 145 mmol/L 05/13/2025 4:28 AM EDT [facility] Potassium, Plasma 3.3(L) 3.6 - 4.9 mmol/L 05/13/2025 4:28 AM EDT [facility] Chloride, Plasma 87(L) 97 - 107 mmol/L 05/13/2025 4:28 AM EDT [facility] CO2, Plasma 37(H) 22 - 29 mmol/L 05/13/2025 4:28 AM EDT [facility] Anion Gap 7 6 - 16 mmol/L 05/13/2025 4:28 AM EDT [facility] Total Calcium, Plasma 9.1 8.9 - 10.2 mg/dL 05/13/2025 4:28 AM EDT [facility] eGFRcr 98.1 mL/min/1.7 3m*2 05/13/2025 4:28 AM EDT [facility] Comment:Reported eGFRcr in m L/min/1.73m2 is based the CKD-EPI 2020 equation that does not use a race coefficient. Blood Venous blood specimen / Unknown Venipuncture / Unknown 05/13/2025 3:54 AM EDT 05/13/2025 4:01 AM EDT us Selin Lee MD LAB BLOOD ORDERABLES Final Re sult Performing Organization Address [facility] Co de Phone Number [facility] [address] [place] [address] * Phosphorus, Plasma (05/13/2025 3:54 AM EDT) Phosphorus, Plasma 3.3 2.5 - 4.5 mg/dL 05/13/2025 4:28 AM EDT [facility] Blood Venous blood specimen / Unknown Venipuncture / Unknown 05/13/2025 3:54 AM EDT 05/13/2025 4:01 AM EDT us Selin Lee MD LAB BLOOD ORDERABLES Final Re sult Performing Organization Address [facility] Phone Number [facility] [address] [place] [address] * (ABNORMAL) POCT glucose meter (05/12/2025 7:40 PM EDT) [facility] POCT Glucose 248(H) 74 - 99 [...] 05/12/2025 7:42 PM EDT [facility] Hydraulic Lift Operator ID Stella Coleman 05/12/20 7:42 PM EDT [facility] Device ID [id number] 05/12/2025 7:42 PM EDT [facility] Specimen Type POC Capillary 05/12/2025 7:42 PM EDT [facility] Blood Capillary blood specimen / Unknown 05/12/2025 7:40 PM EDT 05/12/2025 7:42 PM EDT Selin Lee MD LAB POINT OF CARE TE ST DOCKED DEVICE UNSOLICITED RESULTS Final Result Performing Organization Address City/[facility] Co de Phone Number [facility] [address] [place] [address] * (ABNORMAL) POCT glucose meter (05/12/2025 4:36 [...] for testing. Comment 05/12/2025 4:38 PM EDT [facility] Hydraulic Lift Operator ID Char Hinojosa 05/12/2025 4:38 PM EDT [facility] Device ID [id number] 05/12/2025 4:38 PM EDT [facility] Specimen Type POC Capillary 05/12/2025 4:38 PM EDT [facility] Blood Capillary blood specimen / Unknown 05/12/2025 4:36 PM EDT 05/12/2025 4:38 PM EDT Selin Lee MD LAB POINT OF CARE TE ST DOCKED DEVICE UNSOLICITED RESULTS Final Result Performing Organization Address City/[facility] Co de Phone Number [facility] [address] [place] [address] * (ABNORMAL) POCT glucose meter (05/12/2025 11:30 [...] Comment 05/12/2025 11:32 AM EDT [facility] Hydraulic Lift Operator ID Char Hinojosa 05/12/2025 11:32 AM EDT [facility] Device ID [id number] 05/12/2025 11:32 AM EDT [facility] Specimen Type POC Capillary 05/12/2025 11:32 AM EDT [facility] Blood Capillary blood specimen / Unknown 05/12/2025 11:30 AM EDT 05/12/2025 11:32 AM EDT Selin Lee MD LAB POINT OF CARE TE ST DOCKED DEVICE UNSOLICITED RESULTS Final Result Performing Organization Address City/[facility] Co de Phone Number [facility] [address] [place] [address] * (ABNORMAL) POCT glucose meter (05/12/2025 8:08 [...] Comment 05/12/2025 8:10 AM EDT [facility] Hydraulic Lift Operator ID Char Hinojosa 05/12/2025 8:10 AM EDT [facility] Device ID [id number] 05/12/2025 8:10 AM EDT [facility] Specimen Type POC Capillary 05/12/2025 8:10 AM EDT [facility] Blood Capillary blood specimen / Unknown 05/12/2025 8:08 AM EDT 05/12/2025 8:10 AM EDT us Selin Lee MD LAB POINT OF CARE TE ST DOCKED DEVICE UNSOLICITED RESULTS Final Result Performing Organization Address City/[facility]/ZIP Co de Phone Number [facility] [address] [place] [address] * (ABNORMAL) CBC and Differential (05/12/2025 3:56 AM EDT) WBC Count 7.24 3.70 - 10.30 10*3/uL LAB HEMATOLOGY METHOD 05/12/2025 4:15 AM EDT [facility] RBC Count 4.28(L) 4.60 - 6.10 10*6/uL LAB HEMATOLOGY METHOD 05/12/2025 4:15 AM EDT [facility] HGB 9.4(L) 13.7 - 17.5 g/dL LAB HEMATOLOGY METHOD 05/12/2025 4:15 AM EDT [facility] HCT 31.8(L) 40.0 - 51.0 % LAB HEMATOLOGY METHOD 05/12/2025 4:15 AM EDT [facility] Platelet Count 266 155 - 369 10*3/uL LAB HEMATOLOGY METHOD 05/12/2025 4:15 AM EDT [facility] MCV 74(L) 79 - 98 fL LAB HEMATOLOGY METHOD 05/12/2025 4:15 AM EDT [facility] MCH 22.0(L) 26.0 - 32.0 pg LAB HEMATOLOGY METHOD 05/12/2025 4:15 AM EDT [facility] MCHC 29.6(L) 30.7 - 35.5 g/dL LAB HEMATOLOGY METHOD 05/12/2025 4:15 AM EDT [facility] RDW 18.0(H) 11.5 - 14.5 % LAB HEMATOLOGY METHOD 05/12/2025 4:15 AM EDT [facility] MPV 9.6 8.8 - 12.5 fL LAB HEMATOLOGY METHOD 05/12/2025 4:15 AM EDT [facility] nRBC 0.0 <=0.0 per 100 WBCs LAB HEMATOLOGY METHOD 05/12/2025 4:15 AM EDT [facility] Differential Type Automated LAB HEMATOLOGY METHOD 05/12/2025 4:15 AM EDT [facility] Neutrophils % 71 % LAB HEMATOLOGY METHOD 05/12/2025 4:15 AM EDT [facility] Lymphocytes % 16 % LAB HEMATOLOGY METHOD 05/12/2025 4:15 AM EDT [facility] Monocytes % 9 % LAB HEMATOLOGY METHOD 05/12/2025 4:15 AM EDT [facility] Eosinophils % 3 % LAB HEMATOLOGY METHOD 05/12/2025 4:15 AM EDT [facility] Basophils % 1 % LAB HEMATOLOGY METHOD 05/12/2025 4:15 AM EDT [facility] Immature Granulocytes % 0 % LAB HEMATOLOGY METHOD 05/12/2025 4:15 AM EDT [facility] Neutrophils Absolute 5.14 1.60 - 6.10 10*3/uL LAB HEMATOLOGY METHOD 05/12/2025 4:15 AM EDT [facility] Lymphocytes Absolute 1.15(L) 1.20 - 3.90 10*3/uL LAB HEMATOLOGY METHOD 05/12/2025 4:15 AM EDT [facility] Monocytes Absolute 0.66 0.30 - 0.90 10*3/uL LAB HEMATOLOGY METHOD 05/12/2025 4:15 AM EDT [facility] Eosinophils Absolute 0.22 0.00 - 0.50 10*3/uL LAB HEMATOLOGY METHOD 05/12/2025 4:15 AM EDT [facility] Basophils Absolute 0.05 0.00 - 0.10 10*3/uL LAB HEMATOLOGY METHOD 05/12/2025 4:15 AM EDT [facility] Immature Granulocytes Absolute 0.02 0.00 - 0.06 10*3/uL LAB HEMATOLOGY METHOD 05/12/2025 4:15 AM EDT [facility] Blood Venous blood specimen / Unknown Venipuncture / Unknown 05/12/2025 3:56 AM EDT 05/12/2025 4:03 AM EDT Narrative [facility] - 05/12/2025 4:15 AM EDT Therapeutic decision making should be based on absolute values, rather than percentages. us Selin Lee MD LAB BLOOD ORDERABLES Final Re sult [facility] [address] [place] [address] * (ABNORMAL) Magnesium, Plasma (05/12/2025 3:56 AM EDT) Magnesium, Plasma 1.7(L) 1.9 - 2.4 mg/dL 05/12/2025 4:36 AM EDT [facility] Blood Venous blood specimen / Unknown Venipuncture / Unknown 05/12/2025 3:56 AM EDT 05/12/2025 4:03 AM EDT us Selin Lee MD LAB BLOOD ORDERABLES Final Re sult [facility] [address] [place] [address] * (ABNORMAL) Basic Metabolic Panel, Plasma (05/12/2025 3:56 AM EDT) Glucose, Plasma 383(H) 74 - 99 mg/dL 05/12/2025 4:36 AM EDT [facility] BUN, Plasma 18 7 - 21 mg/dL 05/12/2025 4:36 AM EDT [facility] Creatinine, Plasma 0.86 0.70 - 1.20 mg/dL 05/12/2025 4:36 AM EDT [facility] BUN/Creatinine Ratio 21 05/12/2025 4:36 AM EDT [facility] Sodium, Plasma 130(L) 136 - 145 mmol/L 05/12/2025 4:36 AM EDT [facility] Potassium, Plasma 3.2(L) 3.6 - 4.9 mmol/L 05/12/2025 4:36 AM EDT [facility] Chloride, Plasma 85(L) 97 - 107 mmol/L 05/12/2025 4:36 AM EDT [facility] CO2, Plasma 36(H) 22 - 29 mmol/L 05/12/2025 4:36 AM EDT [facility] Anion Gap 9 6 - 16 mmol/L 05/12/2025 4:36 AM EDT [facility] Total Calcium, Plasma 8.9 8.9 - 10.2 mg/dL 05/12/2025 4:36 AM EDT [facility] eGFRcr 107.5 mL/min/1.7 3m*2 05/12/2025 4:36 AM EDT [facility] Comment:Reported eGFRcr in m L/min/1.73m2 is based the CKD-EPI 2020 equation that does not use a race coefficient. Blood Venous blood specimen / Unknown Venipuncture / Unknown 05/12/2025 3:56 AM EDT 05/12/2025 4:03 AM EDT us Selin Lee MD LAB BLOOD ORDERABLES Final Re sult Performing Organization Address [facility]/[place] [address] * Phosphorus, Plasma (05/12/2025 3:56 AM EDT) [facility] Phosphorus, Plasma 2.8 2.5 - 4.5 mg/dL 05/12/2025 4:36 AM EDT [facility] Blood Venous blood specimen / Unknown Venipuncture / Unknown 05/12/2025 3:56 AM EDT 05/12/2025 4:03 AM EDT us Selin Lee MD LAB BLOOD ORDERABLES Final Re sult Performing Organization Address [facility] [place] [address] * (ABNORMAL) POCT glucose meter (05/12/2025 3:11 AM EDT) [facility] POCT Glucose 348(H) 74 - 99 [...] 05/12/2025 3:13 AM EDT [facility] Hydraulic Lift Operator ID Daly [email or web address] 05/12/2025 3:13 AM EDT [facility] Device ID [id number] 05/12/2025 3:13 AM EDT [facility] Specimen Type POC Capillary 05/12/2025 3:13 AM EDT [facility] Blood Capillary blood specimen / Unknown 05/12/2025 3:11 AM EDT 05/12/2025 3:13 AM EDT us Selin Lee MD LAB POINT OF CARE TE ST DOCKED DEVICE UNSOLICITED RESULTS Final Result Performing Organization Address [facility] Co de Phone Number [facility] [address] [place] [address] * (ABNORMAL) POCT glucose meter (05/11/2025 7:57 PM EDT) [facility] POCT Glucose 272(H) 74 - [...] Comment 05/11/2025 8:02 PM EDT [facility] Hydraulic Lift Operator ID Joel Carmona 05/11/2025 8:02 PM EDT [facility] Device ID [id number] 05/11/2025 8:02 PM EDT [facility] Specimen Type POC Capillary 05/11/2025 8:02 PM EDT [facility] Blood Capillary blood specimen / Unknown 05/11/2025 7:57 PM EDT 05/11/2025 8:02 PM EDT us Selin Lee MD LAB POINT OF CARE TE ST DOCKED DEVICE UNSOLICITED RESULTS Final Result Performing Organization Address City/[facility] Co de Phone Number [facility] [address] [place] [address] * (ABNORMAL) POCT glucose meter (05/11/2025 5:05 PM EDT) [facility] POCT Glucose 258(H) 74 - [...] for testing. Comment 05/11/2025 5:07 PM EDT [facility] Hydraulic Lift Operator ID Char Hinojosa 05/11/2025 5:07 PM EDT [facility] Device ID [id number] 05/11/2025 5:07 PM EDT [facility] Specimen Type POC Capillary 05/11/2025 5:07 PM EDT [facility] Blood Capillary blood specimen / Unknown 05/11/2025 5:05 PM EDT 05/11/2025 5:07 PM EDT us Selin Lee MD LAB POINT OF CARE TE ST DOCKED DEVICE UNSOLICITED RESULTS Final Result [facility] [address] [place] [address] * (ABNORMAL) POCT glucose meter (05/11/2025 12:13 PM EDT) [facility] POCT Glucose 240(H) 74 - [...] Comment 05/11/2025 12:15 PM EDT HEALTHCARE LAB Hydraulic Lift Operator ID Char Hinojosa 05/11/2025 12:15 PM EDT HEALTHCARE LAB Device ID [id number] 05/11/2025 12:15 PM EDT [facility]ARE LAB Specimen Type POC Capillary 05/11/2025 12:15 PM EDT [facility] Blood Capillary blood specimen / Unknown 05/11/2025 12:13 PM EDT 05/11/2025 12:15 PM EDT us Selin Lee MD LAB POINT OF CARE TE ST DOCKED DEVICE UNSOLICITED RESULTS Final Result Performing Organization Address [facility] de Phone Number [facility] [address] [place] [address] * (ABNORMAL) POCT glucose meter (05/11/2025 7:57 AM EDT) [facility] POCT Glucose 318(H) 74 - 99 mg/dL [...] Comment 05/11/2025 7:59 AM EDT [facility]ALTH[facility]ARE [facility] Hydraulic Lift Operator ID Char Hinojosa 05/11/2025 7:59 AM EDT HEALTHCARE LAB Device ID [id number] 05/11/2025 7:59 AM EDT [facility]ALTH[facility]ARE LAB Specimen Type POC Capillary 05/11/2025 7:59 AM EDT [facility] Blood Capillary blood specimen / Unknown 05/11/2025 7:57 AM EDT 05/11/2025 7:59 AM EDT Selin Lee MD LAB POINT OF CARE TE ST DOCKED DEVICE UNSOLICITED RESULTS Final Result Performing Organization Address [facility] de Phone Number [facility] [address] [place] [address] * ECG Adult (05/11/2025 6:11 AM EDT) [facility] EKG DIAGNOSIS CLASS Abnormal MUSE ECG Ventricular Rate 59 BPM MUSE ECG Atrial Rate 59 BPM MUSE ECG SD Interval 176 ms MUSE ECG QRSD Interval 160 ms MUSE ECG QT Interval 520 ms MUSE ECG QTC Interval 514 ms MUSE ECG P Diamond 21 degrees MUSE ECG R Diamond -32 degrees MUSE ECG T Wave Diamond -9 degrees MUSE ECG Diagnosis Sinus bradycardia [...] MUSE ECG Diagnosis Confirmed by Tone Lainez ([id number]) on 05/12/2025 11:35:23 AM MUSE ECG 05/11/2025 6:11 AM EDT 05/12/2025 11:35 AM EDT us Selin Lee MD ECG ORDERABLES Final Result MUSE ECG * (ABNORMAL) POCT glucose meter (05/11/2025 3:42 AM EDT) [facility]ologist [facility] POCT Glucose 336(H) 74 - 99 mg/dL [...] Comment 05/11/2025 3:45 AM EDT HEALTHCARE LAB Hydraulic Lift Operator ID Kaylin Barron 05/11/2025 3:45 AM EDT HEALTHCARE LAB Device ID [id number] 05/11/2025 3:45 AM EDT HEALTHCARE LAB Specimen Type POC Capillary 05/11/2025 3:45 AM EDT [facility] Blood Capillary blood specimen / Unknown 05/11/2025 3:42 AM EDT 05/11/2025 3:45 AM EDT us Selin Lee MD LAB POINT OF CARE TE ST DOCKED DEVICE UNSOLICITED RESULTS Final Result [facility] [address] [place] [address] * (ABNORMAL) CBC and Differential (05/11/2025 3:24 AM EDT) Pathologist [facility] WBC Count 6.72 3.70 - 10.30 10*3/uL LAB HEMATOLOGY METHOD 05/11/2025 3:42 AM EDT [facility] RBC Count 4.13(L) 4.60 - 6.10 10*6/uL LAB HEMATOLOGY METHOD 05/11/2025 3:42 AM EDT [facility] HGB 9.5(L) 13.7 - 17.5 g/dL LAB HEMATOLOGY METHOD 05/11/2025 3:42 AM EDT [facility] HCT 31.1(L) 40.0 - 51.0 % LAB HEMATOLOGY METHOD 05/11/2025 3:42 AM EDT [facility] Platelet Count 253 155 - 369 10*3/uL LAB HEMATOLOGY METHOD 05/11/2025 3:42 AM EDT [facility] MCV 75(L) 79 - 98 fL LAB HEMATOLOGY METHOD 05/11/2025 3:42 AM EDT [facility] MCH 23.0(L) 26.0 - 32.0 pg LAB HEMATOLOGY METHOD 05/11/2025 3:42 AM EDT [facility] MCHC 30.5(L) 30.7 - 35.5 g/dL LAB HEMATOLOGY METHOD 05/11/2025 3:42 AM EDT [facility] RDW 17.8(H) 11.5 - 14.5 % LAB HEMATOLOGY METHOD 05/11/2025 3:42 AM EDT [facility] MPV 9.5 8.8 - 12.5 fL LAB HEMATOLOGY METHOD 05/11/2025 3:42 AM EDT [facility] nRBC 0.0 <=0.0 per 100 WBCs LAB HEMATOLOGY METHOD 05/11/2025 3:42 AM EDT [facility] Differential Type Automated LAB HEMATOLOGY METHOD 05/11/2025 3:42 AM EDT [facility] Neutrophils % 68 % LAB HEMATOLOGY METHOD 05/11/2025 3:42 AM EDT [facility] Lymphocytes % 17 % LAB HEMATOLOGY METHOD 05/11/2025 3:42 AM EDT [facility] Monocytes % 11 % LAB HEMATOLOGY METHOD 05/11/2025 3:42 AM EDT [facility] Eosinophils % 3 % LAB HEMATOLOGY METHOD 05/11/2025 3:42 AM EDT [facility] Basophils % 1 % LAB HEMATOLOGY METHOD 05/11/2025 3:42 AM EDT [facility] Immature Granulocytes % 0 % LAB HEMATOLOGY METHOD 05/11/2025 3:42 AM EDT [facility] Neutrophils Absolute 4.61 1.60 - 6.10 10*3/uL LAB HEMATOLOGY METHOD 05/11/2025 3:42 AM EDT [facility] Lymphocytes Absolute 1.11(L) 1.20 - 3.90 10*3/uL LAB HEMATOLOGY METHOD 05/11/2025 3:42 AM EDT [facility] Monocytes Absolute 0.72 0.30 - 0.90 10*3/uL LAB HEMATOLOGY METHOD 05/11/2025 3:42 AM EDT [facility] Eosinophils Absolute 0.21 0.00 - 0.50 10*3/uL LAB HEMATOLOGY METHOD 05/11/2025 3:42 AM EDT [facility] Basophils Absolute 0.05 0.00 - 0.10 10*3/uL LAB HEMATOLOGY METHOD 05/11/2025 3:42 AM EDT [facility] Immature Granulocytes Absolute 0.02 0.00 - 0.06 10*3/uL LAB HEMATOLOGY METHOD 05/11/2025 3:42 AM EDT [facility] Blood Venous blood specimen / Unknown Venipuncture / Unknown 05/11/2025 3:24 AM EDT 05/11/2025 3:30 AM EDT Narrative [facility] - 05/11/2025 3:42 AM EDT Therapeutic decision making should be based on absolute values, rather than percentages. us Selin Lee MD LAB BLOOD ORDERABLES Final Re sult [facility] [address] [place] [address] * (ABNORMAL) Magnesium, Plasma (05/11/2025 3:24 AM EDT) Magnesium, Plasma 1.8(L) 1.9 - 2.4 mg/dL 05/11/2025 3:58 AM EDT [facility] Blood Venous blood specimen / Unknown Venipuncture / Unknown 05/11/2025 3:24 AM EDT 05/11/2025 3:30 AM EDT us Selin Lee MD LAB BLOOD ORDERABLES Final Re sult [facility] [address] [place] [address] * (ABNORMAL) Basic Metabolic Panel, Plasma (05/11/2025 3:24 AM EDT) Glucose, Plasma 338(H) 74 - 99 mg/dL 05/11/2025 3:58 AM EDT [facility] BUN, Plasma 18 7 - 21 mg/dL 05/11/2025 3:58 AM EDT [facility] Creatinine, Plasma 0.86 0.70 - 1.20 mg/dL 05/11/2025 3:58 AM EDT [facility] BUN/Creatinine Ratio 21 05/11/2025 3:58 AM EDT [facility] Sodium, Plasma 131(L) 136 - 145 mmol/L 05/11/2025 3:58 AM EDT [facility] Potassium, Plasma 3.2(L) 3.6 - 4.9 mmol/L 05/11/2025 3:58 AM EDT [facility] Chloride, Plasma 85(L) 97 - 107 mmol/L 05/11/2025 3:58 AM EDT [facility] CO2, Plasma 39(H) 22 - 29 mmol/L 05/11/2025 3:58 AM EDT [facility] Anion Gap 7 6 - 16 mmol/L 05/11/2025 3:58 AM EDT [facility] Total Calcium, Plasma 9.1 8.9 - 10.2 mg/dL 05/11/2025 3:58 AM EDT [facility] eGFRcr 107.5 mL/min/1.7 3m*2 05/11/2025 3:58 AM EDT [facility] Comment:Reported eGFRcr in m L/min/1.73m2 is based the CKD-EPI 2020 equation that does not use a race coefficient. Blood Venous blood specimen / Unknown Venipuncture / Unknown 05/11/2025 3:24 AM EDT 05/11/2025 3:30 AM EDT us Selin Lee MD LAB BLOOD ORDERABLES Final Re sult Performing Organization Address City/[facility]/ZIP Co de Phone Number [facility] [address] [place] [address] * Phosphorus, Plasma (05/11/2025 3:24 AM EDT) [facility] Phosphorus, Plasma 3.1 2.5 - 4.5 mg/dL 05/11/2025 3:58 AM EDT [facility] Blood Venous blood specimen / Unknown Venipuncture / Unknown 05/11/2025 3:24 AM EDT 05/11/2025 3:30 AM EDT us Slein Lee MD LAB BLOOD ORDERABLES Final Re sult Performing Organization Address [facility] de Phone Number [facility] [address] [place] [address] * (ABNORMAL) POCT glucose meter (05/10/2025 7:07 PM EDT) [facility] POCT Glucose 398(H) 74 - 99 [...] 05/10/2025 7:10 PM EDT [facility] Hydraulic Lift Operator ID Char Hinojosa 05/10/2025 7:10 PM EDT HEALTHCARE LAB Device ID [id number] 05/10/2025 7:10 PM EDT [facility] Specimen Type POC Capillary 05/10/2025 7:10 PM EDT [facility] Blood Capillary blood specimen / Unknown 05/10/2025 7:07 PM EDT 05/10/2025 7:10 PM EDT us Selin Lee MD LAB POINT OF CARE TE ST DOCKED DEVICE UNSOLICITED RESULTS Final Result Performing Organization Address City/[facility]/ZIP Co de Phone Number [facility] [address] [place] [address] * (ABNORMAL) POCT glucose meter (05/10/2025 4:55 PM EDT) [facility] POCT Glucose 418(H) 74 - 99 mg/dL [...] 05/10/2025 4:57 PM EDT [facility] Hydraulic Lift Operator ID Char Hinojosa 05/10/2025 4:57 PM EDT [facility] Device ID [id number] 05/10/2025 4:57 PM EDT [facility] Specimen Type POC Capillary 05/10/2025 4:57 PM EDT [facility] Blood Capillary blood specimen / Unknown 05/10/2025 4:55 PM EDT 05/10/2025 4:57 PM EDT Selin Lee MD LAB POINT OF CARE TE ST DOCKED DEVICE UNSOLICITED RESULTS Final Result [facility] [address] [place] [address] * (ABNORMAL) POCT glucose meter (05/10/2025 11:41 AM EDT) [facility] POCT Glucose 348(H) 74 - 99 [...] 05/10/2025 11:43 AM EDT [facility] Hydraulic Lift Operator ID Char Hinojosa 05/10/2025 11:43 AM EDT [facility] Device ID [id number] 05/10/2025 11:43 AM EDT [facility] Specimen Type POC Capillary 05/10/2025 11:43 AM EDT [facility] Blood Capillary blood specimen / Unknown 05/10/2025 11:41 AM EDT 05/10/2025 11:43 AM EDT Selin Lee MD LAB POINT OF CARE TE ST DOCKED DEVICE UNSOLICITED RESULTS Final Result [facility] [address] [place] [address] * ECG 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/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 [facility] EKG DIAGNOSIS CLASS Abnormal MUSE ECG Ventricular Rate 65 BPM MUSE ECG Atrial Rate 65 BPM MUSE ECG SD Interval 198 ms MUSE ECG QRSD Interval 154 ms MUSE ECG QT Interval 508 ms MUSE ECG QTC Interval 528 ms MUSE ECG P Diamond 66 degrees MUSE ECG R Diamond -39 degrees MUSE ECG T Wave Diamond -16 degrees MUSE ECG Diagnosis Normal sinus rhythm with sinus arrhythmia MUSE ECG Diagnosis Left axis deviation MUSE ECG Diagnosis Right bundle branch block MUSE ECG Diagnosis Minimal voltage criteria for LVH, may be normal variant ( R in aVL ) MUSE ECG Diagnosis Abnormal ECG MUSE ECG Diagnosis MUSE ECG Diagnosis Confirmed by Manas Mccauley ([id number]) on 05/10/2025 3:20:48 PM MUSE ECG 05/10/2025 11:2 0 AM EDT 05/10/2025 3:20 PM EDT us Selin Lee MD ECG ORDERABLES Final Result MUSE ECG * (ABNORMAL) POCT glucose meter (05/10/2025 7:30 AM EDT) Pathologist [facility] POCT Glucose 332(H) 74 - 99 mg/dL 05/10/2025 7:33 AM EDT [facility] Comment:Accuracy of a glucos e [...] Comment 05/10/2025 7:33 AM EDT [facility] Hydraulic Lift Operator ID Char Hinojosa 05/10/2025 7:33 AM EDT [facility] Device ID [id number] 05/10/2025 7:33 AM EDT [facility] Specimen Type POC Capillary 05/10/2025 7:33 AM EDT [facility] Blood Capillary blood specimen / Unknown 05/10/2025 7:30 AM EDT 05/10/2025 7:33 AM EDT us Selin Lee MD LAB POINT OF CARE TE ST DOCKED DEVICE UNSOLICITED RESULTS Final Result [facility] [address] [place] [address] * ECG 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/2025 6:14 AM EDT) EKG DIAGNOSIS CLASS Abnormal MUSE ECG Ventricular Rate 56 BPM MUSE ECG Atrial Rate 56 BPM MUSE ECG SD Interval 196 ms MUSE ECG QRSD Interval 164 ms MUSE ECG QT Interval 508 ms MUSE ECG QTC Interval 490 ms MUSE ECG P Diamond 74 degrees MUSE ECG R Diamond -33 degrees MUSE ECG T Wave Diamond -10 degrees MUSE ECG Diagnosis Sinus bradycardia with sinus arrhythmia MUSE ECG Diagnosis Left axis deviation MUSE ECG Diagnosis Right bundle branch block MUSE ECG Diagnosis T wave abnormality, consider lateral ischemia MUSE ECG Diagnosis Abnormal ECG MUSE ECG Diagnosis MUSE ECG Diagnosis Confirmed by Manas Mccauley ([id number]) on 05/10/2025 2:45:37 PM MUSE ECG 05/10/2025 6:14 AM EDT 05/10/2025 2:45 PM EDT us Selin Lee MD ECG ORDERABLES Final Result MUSE ECG * (ABNORMAL) POCT glucose meter (05/10/2025 4:00 AM EDT) POCT Glucose 377(H) 74 - 99 mg/dL [...] 05/10/2025 4:02 AM EDT [facility] Hydraulic Lift Operator ID Maribell Saeed 4:02 AM EDT [facility]ALTH[facility] Device ID [id number] 05/10/2025 4:02 AM EDT [facility] Specimen Type POC Capillary 05/10/2025 4:02 AM EDT [facility] Blood Capillary blood specimen / Unknown 05/10/2025 4:00 AM EDT 05/10/2025 4:02 AM EDT Diane Guzman MD LAB POINT OF CARE T EST DOCKED DEVICE UNSOLICITED RESULTS Final Result [facility] [address] [place] [address] * (ABNORMAL) POCT glucose meter (05/09/2025 8:37 PM EDT) [facility] POCT Glucose 296(H) 74 - 99 [...] for testing. Comment 05/09/2025 8:39 PM EDT [facility] Hydraulic Lift Operator ID Maribell Saeed 8:39 PM EDT [facility]ALTH[facility] LAB Device ID [id number] 05/09/2025 8:39 PM EDT [facility] Specimen Type POC Capillary 05/09/2025 8:39 PM EDT [facility] Blood Capillary blood specimen / Unknown 05/09/2025 8:37 PM EDT 05/09/2025 8:39 PM EDT us Diane Guzman MD LAB POINT OF CARE T EST DOCKED DEVICE UNSOLICITED RESULTS Final Result Performing Organization Address City/[facility]/ZIP Co de Phone Number [facility] [address] [place] [address] * Magnesium (05/09/2025 5:54 PM EDT) Magnesium, Plasma 1.9 1.9 - 2.4 mg/dL 05/09/2025 6:56 PM EDT [facility] Blood Venous blood specimen / Unknown Venipuncture / Unknown 05/09/2025 5:54 PM EDT 05/09/2025 6:25 PM EDT us Selin Lee MD LAB BLOOD ORDERABLES Final Re sult Performing Organization Address City/[facility]/ZIP Co de Phone Number [facility] [address] [place] [address] * (ABNORMAL) Basic metabolic panel (05/09/2025 5:54 PM EDT) Glucose, Plasma 416(H) 74 - 99 mg/dL 05/09/2025 6:56 PM EDT [facility] BUN, Plasma 17 7 - 21 mg/dL 05/09/2025 6:56 PM EDT [facility] Creatinine, Plasma 0.81 0.70 - 1.20 mg/dL 05/09/2025 6:56 PM EDT [facility] BUN/Creatinine Ratio 21 05/09/2025 6:56 PM EDT [facility] Sodium, Plasma 130(L) 136 - 145 mmol/L 05/09/2025 6:56 PM EDT [facility] Potassium, Plasma 3.1(L) 3.6 - 4.9 mmol/L 05/09/2025 6:56 PM EDT [facility] Chloride, Plasma 84(L) 97 - 107 mmol/L 05/09/2025 6:56 PM EDT [facility] CO2, Plasma 35(H) 22 - 29 mmol/L 05/09/2025 6:56 PM EDT [facility] Anion Gap 11 6 - 16 mmol/L 05/09/2025 6:56 PM EDT [facility] Total Calcium, Plasma 9.1 8.9 - 10.2 mg/dL 05/09/2025 6:56 PM EDT [facility] eGFRcr 109.4 mL/min/1.7 3m*2 05/09/2025 6:56 PM EDT [facility] Comment:Reported eGFRcr in m L/min/1.73m2 is based the CKD-EPI 2020 equation that does not use a race coefficient. Blood Venous blood specimen / Unknown Venipuncture / Unknown 05/09/2025 5:54 PM EDT 05/09/2025 6:25 PM EDT Selin Lee MD LAB BLOOD ORDERABLES Final Re sult [facility] [address] [place] [address] * (ABNORMAL) POCT glucose meter (05/09/2025 5:17 [...] 05/09/2025 5:20 PM EDT [facility] Hydraulic Lift Operator ID Char Hinojosa 05/09/2025 5:20 PM EDT [facility] Device ID [id number] 05/09/2025 5:20 PM EDT [facility] Specimen Type POC Capillary 05/09/2025 5:20 PM EDT [facility] Blood Capillary blood specimen / Unknown 05/09/2025 5:17 PM EDT 05/09/2025 5:20 PM EDT Diane Guzman MD LAB POINT OF CARE T EST DOCKED DEVICE UNSOLICITED RESULTS Final Result [facility] [address] [place] [address] * ECG Adult (05/09/2025 12:34 PM EDT) EKG DIAGNOSIS CLASS Abnormal MUSE ECG Ventricular Rate 75 BPM MUSE ECG Atrial Rate 75 BPM MUSE ECG SD Interval 176 ms MUSE ECG QRSD Interval 164 ms MUSE ECG QT Interval 454 ms MUSE ECG QTC Interval 506 ms MUSE ECG P Diamond 70 degrees MUSE ECG R Diamond -38 degrees MUSE ECG T Wave Diamond 2 degrees MUSE ECG Diagnosis Normal sinus rhythm MUSE ECG Diagnosis Left axis deviation MUSE ECG Diagnosis Right bundle branch block MUSE ECG Diagnosis Minimal voltage criteria for LVH, may be normal variant ( R in aVL ) MUSE ECG Diagnosis T wave abnormality, consider lateral ischemia MUSE ECG Diagnosis Abnormal ECG MUSE ECG Diagnosis MUSE ECG Diagnosis Confirmed by Garrett Robles ([id number]) on 05/09/2025 2:20:08 PM MUSE ECG 05/09/2025 12:3 4 PM EDT 05/09/2025 2:20 PM EDT Selin Lee MD ECG ORDERABLES Final Result Performing Organization Address [facility] Co de Phone Number MUSE ECG * (ABNORMAL) POCT glucose meter (05/09/2025 12:25 PM EDT) [facility] POCT Glucose 283(H) 74 - [...] 05/09/2025 12:27 PM EDT [facility] Hydraulic Lift Operator ID Dunia Montgomery 05/09/2025 12:27 PM EDT [facility] Device ID [id number] 05/09/2025 12:27 PM EDT [facility] Specimen Type POC Capillary 05/09/2025 12:27 PM EDT [facility] Blood Capillary blood specimen / Unknown 05/09/2025 12:25 PM EDT 05/09/2025 12:27 PM EDT Diane Guzman MD LAB POINT OF CARE T EST DOCKED DEVICE UNSOLICITED RESULTS Final Result Performing Organization Address City/[facility] Co de Phone Number [facility] [address] [place] [address] * (ABNORMAL) POCT glucose meter (05/09/2025 7:52 [...] Comment 05/09/2025 7:54 AM EDT [facility] Hydraulic Lift Operator ID Char Hinojosa 05/09/2025 7:54 AM EDT [facility] LAB Device ID [id number] 05/09/2025 7:54 AM EDT [facility] Specimen Type POC Capillary 05/09/2025 7:54 AM EDT [facility] Blood Capillary blood specimen / Unknown 05/09/2025 7:52 AM EDT 05/09/2025 7:54 AM EDT Diane Guzman MD LAB POINT OF CARE T EST DOCKED DEVICE UNSOLICITED RESULTS Final Result Performing Organization Address City/[facility] Co de Phone Number [facility] [address] [place] [address] * (ABNORMAL) POCT glucose meter (05/08/2025 11:54 PM EDT) POCT Glucose 273(H) 74 - 99 mg/dL [...] 05/08/2025 11:56 PM EDT [facility] Hydraulic Lift Operator ID Kaylin Barron 05/08/2025 11:56 PM EDT [facility] Device ID [id number] 05/08/2025 11:56 PM EDT [facility] Specimen Type POC Capillary 05/08/2025 11:56 PM EDT [facility] Blood Capillary blood specimen / Unknown 05/08/2025 11:54 PM EDT 05/08/2025 11:56 PM EDT Diane Guzman MD LAB POINT OF CARE T EST DOCKED DEVICE UNSOLICITED RESULTS Final Result Performing Organization Address City/State/[facility] Co de Phone Number [facility] [address] [place] [address] * (ABNORMAL) POCT glucose meter (05/08/2025 7:33 PM EDT) [facility] POCT Glucose 310(H) 74 - 99 [...] 05/08/2025 7:35 PM EDT [facility] Hydraulic Lift Operator ID Kaylin Barron 05/08/2025 7:35 PM EDT [facility] Device ID [id number] 05/08/2025 7:35 PM EDT [facility] Specimen Type POC Capillary 05/08/2025 7:35 PM EDT [facility] Blood Capillary blood specimen / Unknown 05/08/2025 7:33 PM EDT 05/08/2025 7:35 PM EDT Diane Guzmna MD LAB POINT OF CARE T EST DOCKED DEVICE UNSOLICITED RESULTS Final Result Performing Organization Address City/[facility] Co de Phone Number [facility] [address] [place] [address] * (ABNORMAL) POCT glucose meter (05/08/2025 5:00 [...] for testing. Comment 05/08/2025 5:02 PM EDT [facility] Hydraulic Lift Operator ID Char Hinojosa 05/08/2025 5:02 PM EDT HEALTHCARE LAB Device ID [id number] 05/08/2025 5:02 PM EDT [facility] Specimen Type POC Capillary 05/08/2025 5:02 PM EDT [facility] Blood Capillary blood specimen / Unknown 05/08/2025 5:00 PM EDT 05/08/2025 5:02 PM EDT Diane Guzman MD LAB POINT OF CARE T EST DOCKED DEVICE UNSOLICITED RESULTS Final Result Performing Organization Address City/[facility] Co de Phone Number [facility] [address] [place] [address] * (ABNORMAL) POCT glucose meter (05/08/2025 11:42 [...] Comment 05/08/2025 11:44 AM EDT [facility] Hydraulic Lift Operator ID Char Hinojosa 05/08/2025 11:44 AM EDT [facility] Device ID [id number] 05/08/2025 11:44 AM EDT [facility] Specimen Type POC Capillary 05/08/2025 11:44 AM EDT [facility] Blood Capillary blood specimen / Unknown 05/08/2025 11:42 AM EDT 05/08/2025 11:44 AM EDT Diane Guzman MD LAB POINT OF CARE T EST DOCKED DEVICE UNSOLICITED RESULTS Final Result Performing Organization Address City/[facility] Co de Phone Number [facility] [address] [place] [address] * (ABNORMAL) POCT glucose meter (05/08/2025 8:05 [...] Comment 05/08/2025 8:07 AM EDT [facility] Hydraulic Lift Operator ID Char Hinojosa 05/08/2025 8:07 AM EDT [facility] Device ID [id number] 05/08/2025 8:07 AM EDT [facility] Specimen Type POC Capillary 05/08/2025 8:07 AM EDT [facility] Blood Capillary blood specimen / Unknown 05/08/2025 8:05 AM EDT 05/08/2025 8:07 AM EDT us Diane Guzman MD LAB POINT OF CARE T EST DOCKED DEVICE UNSOLICITED RESULTS Final Result Performing Organization Address City/[facility]/ZIP Co de Phone Number [facility] [address] [place] [address] * (ABNORMAL) POCT glucose meter (05/08/2025 3:56 AM EDT) Pathologist [facility] POCT Glucose 388(H) 74 - 99 mg/dL 05/08/2025 3:58 AM EDT [facility] Comment:Accuracy of a [...] Comment 05/08/2025 3:58 AM EDT [facility] Hydraulic Lift Operator ID Stella Coleman 05/08/20 3:58 AM EDT [facility] Device ID [id number] 05/08/2025 3:58 AM EDT [facility] Specimen Type POC Capillary 05/08/2025 3:58 AM EDT [facility] Blood Capillary blood specimen / Unknown 05/08/2025 3:56 AM EDT 05/08/2025 3:58 AM EDT Diane Guzman MD LAB POINT OF CARE T EST DOCKED DEVICE UNSOLICITED RESULTS Final Result Performing Organization Address City/State/[facility] Co de Phone Number [facility] [address] [place] [address] * (ABNORMAL) POCT glucose meter (05/07/2025 8:14 PM EDT) [facility] POCT Glucose 392(H) 74 - 99 mg/dL [...] Comment 05/07/2025 8:15 PM EDT [facility]ALTH[facility] Hydraulic Lift Operator ID Fela Coelho 05/07/2025 8:15 PM EDT HEALTHCARE LAB Device ID [id number] 05/07/2025 8:15 PM EDT [facility]ALTH[facility]ARE [facility] Specimen Type POC Capillary 05/07/2025 8:15 PM EDT [facility]ALTH[facility] Blood Capillary blood specimen / Unknown 05/07/2025 8:14 PM EDT 05/07/2025 8:15 PM EDT Diane Guzman MD LAB POINT OF CARE T EST DOCKED DEVICE UNSOLICITED RESULTS Final Result Performing Organization Address City/[facility]/ZIP Co de Phone Number [facility] [address] [place] [address] * (ABNORMAL) POCT glucose meter (05/07/2025 5:10 [...] Comment 05/07/2025 5:13 PM EDT [facility] Hydraulic Lift Operator ID Priyanka Negrete 05/07/20 5:13 PM EDT HEALTHCARE LAB Device ID [id number] 05/07/2025 5:13 PM EDT [facility]ALTH[facility]ARE LAB Specimen Type POC Capillary 05/07/2025 5:13 PM EDT [facility] Blood Capillary blood specimen / Unknown 05/07/2025 5:10 PM EDT 05/07/2025 5:13 PM EDT us Diane Guzman MD LAB POINT OF CARE T EST DOCKED DEVICE UNSOLICITED RESULTS Final Result [facility] [address] [place] [address] * (ABNORMAL) POCT glucose meter (05/07/2025 12:04 PM EDT) POCT Glucose 350(H) 74 - 99 mg/dL [...] Comment 05/07/2025 12:10 PM EDT [facility] Hydraulic Lift Operator ID Priyanka Negrete 05/07/20 12:10 PM EDT [facility] Device ID [id number] 05/07/2025 12:10 PM EDT [facility] Specimen Type POC Capillary 05/07/2025 12:10 PM EDT [facility] Blood Capillary blood specimen / Unknown 05/07/2025 12:04 PM EDT 05/07/2025 12:10 PM EDT Diane Guzman MD LAB POINT OF CARE T EST DOCKED DEVICE UNSOLICITED RESULTS Final Result Performing Organization Address City/State/[facility] Co de Phone Number [facility]ARE [facility] [address] [place] [address] * (ABNORMAL) POCT glucose meter (05/07/2025 7:41 AM EDT) [facility] Signature POCT Glucose 356(H) 74 - 99 mg/dL [...] Comment 05/07/2025 7:44 AM EDT [facility] Hydraulic Lift Operator ID Priyanka Negrete 05/07/20 7:44 AM EDT [facility] Device ID [id number] 05/07/2025 7:44 AM EDT [facility] Specimen Type POC Capillary 05/07/2025 7:44 AM EDT [facility] Blood Capillary blood specimen / Unknown 05/07/2025 7:41 AM EDT 05/07/2025 7:44 AM EDT Diane Guzman MD LAB POINT OF CARE T EST DOCKED DEVICE UNSOLICITED RESULTS Final Result [facility] [address] [place] [address] * (ABNORMAL) POCT glucose meter (05/07/2025 3:41 AM EDT) POCT Glucose 407(H) 74 - 99 mg/dL 05/07/2025 3:43 AM EDT [facility] Comment:Accuracy of a [...] for testing. Comment 05/07/2025 3:43 AM EDT [facility] Hydraulic Lift Operator ID Won Casas 05/07/2025 3:43 AM EDT [facility] Device ID [id number] 05/07/2025 3:43 AM EDT [facility] Specimen Type POC Capillary 05/07/2025 3:43 AM EDT [facility] Blood Capillary blood specimen / Unknown 05/07/2025 3:41 AM EDT 05/07/2025 3:43 AM EDT Diane Guzman MD LAB POINT OF CARE T EST DOCKED DEVICE UNSOLICITED RESULTS Final Result Performing Organization Address City/[facility]/ZIP Co de Phone Number [facility] [address] [place] [address] * (ABNORMAL) POCT glucose meter (05/06/2025 8:01 [...] Comment 05/06/2025 8:02 PM EDT [facility] Hydraulic Lift Operator ID Won Casas 05/06/2025 8:02 PM EDT [facility] LAB Device ID [id number] 05/06/2025 8:02 PM EDT [facility] Specimen Type POC Capillary 05/06/2025 8:02 PM EDT [facility] Blood Capillary blood specimen / Unknown 05/06/2025 8:01 PM EDT 05/06/2025 8:02 PM EDT Diane Guzman MD LAB POINT OF CARE T EST DOCKED DEVICE UNSOLICITED RESULTS Final Result Performing Organization Address City/[facility] Co de Phone Number [facility] [address] [place] [address] * (ABNORMAL) POCT glucose meter (05/06/2025 4:40 PM EDT) [facility] Signature POCT Glucose 212(H) 74 - 99 mg/dL [...] Comment 05/06/2025 4:46 PM EDT [facility] Hydraulic Lift Operator ID Sherrell Navarro 05/06/2025 4:46 PM EDT [facility] Device ID [id number] 05/06/2025 4:46 PM EDT [facility] Specimen Type POC Capillary 05/06/2025 4:46 PM EDT [facility] Blood Capillary blood specimen / Unknown 05/06/2025 4:40 PM EDT 05/06/2025 4:46 PM EDT Diane Guzman MD LAB POINT OF CARE T EST DOCKED DEVICE UNSOLICITED RESULTS Final Result [facility] [address] [place] [address] * PSA, diagnostic (05/06/2025 12:27 PM EDT) [facility] PSA, Diagnostic, Serum 0.03 0.00 - 2.50 ng/mL 05/06/2025 1:10 PM EDT [facility] Blood Venous blood specimen / Unknown Venipuncture / Unknown 05/06/2025 12:27 PM EDT 05/06/2025 12:33 PM EDT Narrative [facility] - 05/06/2025 1:10 PM EDT Performed by Bella electrochemiluminescent immunoassay which is standardized against the PSA Jeb Reference Standard (WHO 96/670). Results obtained with different test methods or kits cannot be used interchangeably. Diane Guzman MD LAB BLOOD ORDERABLES Final Result Performing Organization Address City/State/[facility] Co de Phone Number [facility] [address] [place] [address] * (ABNORMAL) POCT glucose meter (05/06/2025 11:28 AM EDT) [facility] POCT Glucose 337(H) 74 - 99 [...] Comment 05/06/2025 11:30 AM EDT [facility] Hydraulic Lift Operator ID Sherrell Navarro 05/06/2025 11:30 AM EDT [facility] Device ID [id number] 05/06/2025 11:30 AM EDT [facility] Specimen Type POC Capillary 05/06/2025 11:30 AM EDT [facility] Blood Capillary blood specimen / Unknown 05/06/2025 11:28 AM EDT 05/06/2025 11:30 AM EDT Diane Guzman MD LAB POINT OF CARE T EST DOCKED DEVICE UNSOLICITED RESULTS Final Result Performing Organization Address City/State/[facility] de Phone Number [facility] [address] [place] [address] * (ABNORMAL) POCT glucose meter (05/06/2025 8:13 AM EDT) [facility] POCT Glucose 348(H) 74 - 99 [...] Comment 05/06/2025 8:23 AM EDT [facility] Hydraulic Lift Operator ID Sherrell Navarro 05/06/2025 8:23 AM EDT [facility] Device ID [id number] 05/06/2025 8:23 AM EDT [facility] Specimen Type POC Capillary 05/06/2025 8:23 AM EDT [facility] Blood Capillary blood specimen / Unknown 05/06/2025 8:13 AM EDT 05/06/2025 8:23 AM EDT Diane Guzman MD LAB POINT OF CARE T EST DOCKED DEVICE UNSOLICITED RESULTS Final Result Performing Organization Address [facility] de Phone Number [facility] [address] [place] [address] * (ABNORMAL) POCT glucose meter (05/06/2025 3:09 AM EDT) [facility] POCT Glucose 364(H) 74 - 99 [...] 05/06/2025 3:11 AM EDT [facility] Hydraulic Lift Operator ID Won Casas 05/06/2025 3:11 AM EDT [facility] Device ID [id number] 05/06/2025 3:11 AM EDT [facility] Specimen Type POC Capillary 05/06/2025 3:11 AM EDT [facility] Blood Capillary blood specimen / Unknown 05/06/2025 3:09 AM EDT 05/06/2025 3:11 AM EDT Diane Guzman MD LAB POINT OF CARE T EST DOCKED DEVICE UNSOLICITED RESULTS Final Result Performing Organization Address City/[facility] Co de Phone Number [facility] [address] [place] [address] * (ABNORMAL) POCT glucose meter (05/05/2025 8:19 PM EDT) [facility] POCT Glucose 324(H) 74 - 99 [...] for testing. Comment 05/05/2025 8:20 PM EDT [facility] Hydraulic Lift Operator ID Won Casas 05/05/2025 8:20 PM EDT [facility] Device ID [id number] 05/05/2025 8:20 PM EDT [facility] Specimen Type POC Capillary 05/05/2025 8:20 PM EDT [facility] Blood Capillary blood specimen / Unknown 05/05/2025 8:19 PM EDT 05/05/2025 8:20 PM EDT Diane Guzman MD LAB POINT OF CARE T EST DOCKED DEVICE UNSOLICITED RESULTS Final Result Performing Organization Address City/[facility] Co de Phone Number [facility] [address] [place] [address] * (ABNORMAL) POCT glucose meter (05/05/2025 5:09 PM EDT) [facility] POCT Glucose 371(H) 74 - 99 [...] for testing. Comment 05/05/2025 5:14 PM EDT [facility] Hydraulic Lift Operator ID Ramon Sherrell Black 05/05/2025 5:14 PM EDT [facility] Device ID [id number] 05/05/2025 5:14 PM EDT [facility] Specimen Type POC Capillary 05/05/2025 5:14 PM EDT [facility] Blood Capillary blood specimen / Unknown 05/05/2025 5:09 PM EDT 05/05/2025 5:14 PM EDT Diane Guzman MD LAB POINT OF CARE T EST DOCKED DEVICE UNSOLICITED RESULTS Final Result [facility] [address] [place] [address] * (ABNORMAL) POCT glucose meter (05/05/2025 11:29 AM EDT) [facility] POCT Glucose 292(H) 74 - [...] 05/05/2025 11:32 AM EDT [facility] Hydraulic Lift Operator ID Raomn Sherrell Black 05/05/2025 11:32 AM EDT [facility] Device ID [id number] 05/05/2025 11:32 AM EDT [facility] Specimen Type POC Capillary 05/05/2025 11:32 AM EDT [facility] Blood Capillary blood specimen / Unknown 05/05/2025 11:29 AM EDT 05/05/2025 11:32 AM EDT Diane Guzman MD LAB POINT OF CARE T EST DOCKED DEVICE UNSOLICITED RESULTS Final Result Performing Organization Address [facility] de Phone Number [facility] [address] [place] [address] * (ABNORMAL) POCT glucose meter (05/05/2025 7:55 AM EDT) [facility] POCT Glucose 290(H) 74 - 99 mg/dL [...] Comment 05/05/2025 7:57 AM EDT [facility] Hydraulic Lift Operator ID Sherrell Navarro 05/05/2025 7:57 AM EDT [facility] Device ID [id number] 05/05/2025 7:57 AM EDT [facility] Specimen Type POC Capillary 05/05/2025 7:57 AM EDT [facility] Blood Capillary blood specimen / Unknown 05/05/2025 7:55 AM EDT 05/05/2025 7:57 AM EDT Diane Guzman MD LAB POINT OF CARE T EST DOCKED DEVICE UNSOLICITED RESULTS Final Result Performing Organization Address City/[facility] Co de Phone Number [facility] [address] [place] [address] * (ABNORMAL) POCT glucose meter (05/04/2025 7:35 PM EDT) [facility] POCT Glucose 236(H) 74 - 99 mg/dL [...] 05/04/2025 7:37 PM EDT [facility] Hydraulic Lift Operator ID Kaylin Barron 05/04/2025 7:37 PM EDT [facility] Device ID [id number] 05/04/2025 7:37 PM EDT [facility] Specimen Type POC Capillary 05/04/2025 7:37 PM EDT [facility] Blood Capillary blood specimen / Unknown 05/04/2025 7:35 PM EDT 05/04/2025 7:37 PM EDT us Diane Guzman MD LAB POINT OF CARE T EST DOCKED DEVICE UNSOLICITED RESULTS Final Result Performing Organization Address City/State/[facility] Co de Phone Number [facility] [address] [place] [address] * (ABNORMAL) POCT glucose meter (05/04/2025 4:51 PM EDT) [facility] POCT Glucose 233(H) 74 - 99 [...] 05/04/2025 4:53 PM EDT [facility] Hydraulic Lift Operator ID Araceli Doran 025 4:53 PM EDT [facility] LAB Device ID [id number] 05/04/2025 4:53 PM EDT [facility] Specimen Type POC Capillary 05/04/2025 4:53 PM EDT [facility] Blood Capillary blood specimen / Unknown 05/04/2025 4:51 PM EDT 05/04/2025 4:53 PM EDT us Diane Guzman MD LAB POINT OF CARE T EST DOCKED DEVICE UNSOLICITED RESULTS Final Result Performing Organization Address City/[facility] Co de Phone Number [facility] [address] [place] [address] * (ABNORMAL) POCT glucose meter (05/04/2025 11:51 AM EDT) [facility] POCT Glucose 271(H) 74 - 99 mg/dL [...] Comment 05/04/2025 11:56 AM EDT [facility] Hydraulic Lift Operator ID Araceli Doran 11:56 AM EDT [facility] Device ID [id number] 05/04/2025 11:56 AM EDT [facility] Specimen Type POC Capillary 05/04/2025 11:56 AM EDT [facility] Blood Capillary blood specimen / Unknown 05/04/2025 11:51 AM EDT 05/04/2025 11:56 AM EDT Diane Guzman MD LAB POINT OF CARE T EST DOCKED DEVICE UNSOLICITED RESULTS Final Result Performing Organization Address [facility] Co de Phone Number [facility] [address] [place] [address] * (ABNORMAL) POCT glucose meter (05/04/2025 8:09 AM EDT) [facility] POCT Glucose 259(H) 74 - 99 mg/dL [...] 05/04/2025 8:17 AM EDT [facility] Hydraulic Lift Operator ID Araceli Doran 10/23/2 025 8:17 AM EDT HEALTH[facility] LAB Device ID [id number] 05/04/2025 8:17 AM EDT [facility] Specimen Type POC Capillary 05/04/2025 8:17 AM EDT [facility] Blood Capillary blood specimen / Unknown 05/04/2025 8:09 AM EDT 05/04/2025 8:17 AM EDT Diane Guzman MD LAB POINT OF CARE T EST DOCKED DEVICE UNSOLICITED RESULTS Final Result Performing Organization Address City/[facility]/ZIP Co de Phone Number [facility] [address] [place] [address] * (ABNORMAL) POCT glucose meter (05/04/2025 4:44 AM EDT) [facility] POCT Glucose 335(H) 74 - 99 mg/dL [...] for testing. Comment 05/04/2025 4:46 AM EDT [facility] Hydraulic Lift Operator ID Kaylin Barron 05/04/2025 4:46 AM EDT [facility]ALTH[facility] LAB Device ID [id number] 05/04/2025 4:46 AM EDT [facility] Specimen Type POC Capillary 05/04/2025 4:46 AM EDT [facility] Blood Capillary blood specimen / Unknown 05/04/2025 4:44 AM EDT 05/04/2025 4:46 AM EDT Diane Guzman MD LAB POINT OF CARE T EST DOCKED DEVICE UNSOLICITED RESULTS Final Result Performing Organization Address City/[facility] Co de Phone Number [facility] [address] [place] [address] * (ABNORMAL) POCT glucose meter (05/03/2025 7:27 PM EDT) [facility] POCT Glucose 331(H) 74 - 99 mg/dL 05/03/2025 7:33 PM EDT [facility] Comment:Accuracy of a [...] Comment 05/03/2025 7:33 PM EDT [facility] Hydraulic Lift Operator ID Kaylin Barron 05/03/2025 7:33 PM EDT [facility] Device ID [id number] 05/03/2025 7:33 PM EDT [facility] Specimen Type POC Capillary 05/03/2025 7:33 PM EDT [facility] Blood Capillary blood specimen / Unknown 05/03/2025 7:27 PM EDT 05/03/2025 7:33 PM EDT Diane Guzman MD LAB POINT OF CARE T EST DOCKED DEVICE UNSOLICITED RESULTS Final Result [facility] [address] [place] [address] * (ABNORMAL) Comprehensive metabolic panel (05/03/2025 6:22 PM EDT) Glucose, Plasma 290(H) 74 - 99 mg/dL 05/03/2025 7:13 PM EDT [facility] BUN, Plasma 14 7 - 21 mg/dL 05/03/2025 7:13 PM EDT [facility] Creatinine, Plasma 0.71 0.70 - 1.20 mg/dL 05/03/2025 7:13 PM EDT [facility] BUN/Creatinine Ratio 20 05/03/2025 7:13 PM EDT [facility] Sodium, Plasma 133(L) 136 - 145 mmol/L 05/03/2025 7:13 PM EDT [facility] Potassium, Plasma 3.6 3.6 - 4.9 mmol/L 05/03/2025 7:13 PM EDT [facility] Chloride, Plasma 87(L) 97 - 107 mmol/L 05/03/2025 7:13 PM EDT [facility] CO2, Plasma 37(H) 22 - 29 mmol/L 05/03/2025 7:13 PM EDT [facility] Anion Gap 9 6 - 16 mmol/L 05/03/2025 7:13 PM EDT [facility] Total Calcium, Plasma 9.4 8.9 - 10.2 mg/dL 05/03/2025 7:13 PM EDT [facility] Total Protein 8.0(H) 6.3 - 7.9 g/dL 05/03/2025 7:13 PM EDT [facility] Albumin, Plasma 3.6 3.5 - 5.2 g/dL 05/03/2025 7:13 PM EDT [facility] AST, Plasma 18 10 - 50 U/L 05/03/2025 7:13 PM EDT [facility] ALT, Plasma 12 10 - 50 U/L 05/03/2025 7:13 PM EDT [facility] Alkaline Phosphatase, Plasma 64 40 - 115 U/L 05/03/2025 7:13 PM EDT [facility] Total Bilirubin, Plasma 0.7 0.2 - 1.1 mg/dL 05/03/2025 7:13 PM EDT [facility] eGFRcr 113.9 mL/min/1.7 3m*2 05/03/2025 7:13 PM EDT [facility] Comment:Reported eGFRcr in m L/min/1.73m2 is based the CKD-EPI 2020 equation that does not use a race coefficient. Blood Venous blood specimen / Unknown Venipuncture / Unknown 05/03/2025 6:22 PM EDT 05/03/2025 6:38 PM EDT us Diane Guzman MD LAB BLOOD ORDERABLES Final Result [facility] [address] [place] [address] * Creatine Kinase (CK), Total (05/03/2025 6:22 PM EDT) Creatine Kinase, Plasma 54 49 - 320 U/L 05/03/2025 7:13 PM EDT [facility] Blood Venous blood specimen / Unknown Venipuncture / Unknown 05/03/2025 6:22 PM EDT 05/03/2025 6:38 PM EDT Result [facility] Diane Guzman MD LAB BLOOD ORDERABLES Final Result Performing Organization Address City/[facility]/ZIP Co de Phone Number [facility] [address] [place] [address] * (ABNORMAL) POCT glucose meter (05/03/2025 5:30 PM EDT) POCT Glucose 258(H) 74 - 99 mg/dL 05/03/2025 5:33 PM EDT [facility] Comment:Accuracy of a [...] Comment 05/03/2025 5:33 PM EDT [facility] Hydraulic Lift Operator ID Dunia Montgomery 05/03/2025 5:33 PM EDT [facility]ALTH[facility] LAB Device ID [id number] 05/03/2025 5:33 PM EDT [facility] Specimen Type POC Capillary 05/03/2025 5:33 PM EDT [facility] Blood Capillary blood specimen / Unknown 05/03/2025 5:30 PM EDT 05/03/2025 5:33 PM EDT Diane Guzman MD LAB POINT OF CARE T EST DOCKED DEVICE UNSOLICITED RESULTS Final Result [facility] [address] [place] [address] * (ABNORMAL) POCT glucose meter (05/03/2025 11:36 [...] Comment 05/03/2025 11:38 AM EDT [facility] Hydraulic Lift Operator ID Kindra Cardoza 05/03/2025 11:38 AM EDT [facility] Device ID [id number] 05/03/2025 11:38 AM EDT [facility] Specimen Type POC Capillary 05/03/2025 11:38 AM EDT [facility] Blood Capillary blood specimen / Unknown 05/03/2025 11:36 AM EDT 05/03/2025 11:38 AM EDT Diane Guzman MD LAB POINT OF CARE T EST DOCKED DEVICE UNSOLICITED RESULTS Final Result Performing Organization Address City/State/[facility] Co de Phone Number [facility] [address] [place] [address] * (ABNORMAL) POCT glucose meter (05/03/2025 8:09 [...] Comment 05/03/2025 8:11 AM EDT [facility] Hydraulic Lift Operator ID Dunia Montgomery 05/03/2025 8:11 AM EDT [facility] Device ID [id number] 05/03/2025 8:11 AM EDT [facility] Specimen Type POC Capillary 05/03/2025 8:11 AM EDT [facility] Blood Capillary blood specimen / Unknown 05/03/2025 8:09 AM EDT 05/03/2025 8:11 AM EDT us Diane Guzman MD LAB POINT OF CARE T EST DOCKED DEVICE UNSOLICITED RESULTS Final Result Performing Organization Address City/[facility]/ZIP Co de Phone Number [facility] [address] [place] [address] * (ABNORMAL) POCT glucose meter (05/03/2025 3:37 AM EDT) [facility] POCT Glucose 372(H) 74 - [...] for testing. Comment 05/03/2025 3:40 AM EDT [facility] Hydraulic Lift Operator ID Maribell Saeed 3:40 AM EDT [facility] Device ID [id number] 05/03/2025 3:40 AM EDT [facility] Specimen Type POC Capillary 05/03/2025 3:40 AM EDT [facility] Blood Capillary blood specimen / Unknown 05/03/2025 3:37 AM EDT 05/03/2025 3:40 AM EDT Diane Guzman MD LAB POINT OF CARE T EST DOCKED DEVICE UNSOLICITED RESULTS Final Result Performing Organization Address City/[facility]/ZIP Co de Phone Number [facility] [address] [place] [address] * (ABNORMAL) CBC and Differential (05/03/2025 3:16 AM EDT) [facility] WBC Count 6.86 3.70 - 10.30 10*3/uL LAB HEMATOLOGY METHOD 05/03/2025 3:33 AM EDT [facility] RBC Count 3.82(L) 4.60 - 6.10 10*6/uL LAB HEMATOLOGY METHOD 05/03/2025 3:33 AM EDT [facility] HGB 8.9(L) 13.7 - 17.5 g/dL LAB HEMATOLOGY METHOD 05/03/2025 3:33 AM EDT [facility] HCT 29.2(L) 40.0 - 51.0 % LAB HEMATOLOGY METHOD 05/03/2025 3:33 AM EDT [facility] Platelet Count 202 155 - 369 10*3/uL LAB HEMATOLOGY METHOD 05/03/2025 3:33 AM EDT [facility] MCV 76(L) 79 - 98 fL LAB HEMATOLOGY METHOD 05/03/2025 3:33 AM EDT [facility] MCH 23.3(L) 26.0 - 32.0 pg LAB HEMATOLOGY METHOD 05/03/2025 3:33 AM EDT [facility] MCHC 30.5(L) 30.7 - 35.5 g/dL LAB HEMATOLOGY METHOD 05/03/2025 3:33 AM EDT [facility] RDW 18.8(H) 11.5 - 14.5 % LAB HEMATOLOGY METHOD 05/03/2025 3:33 AM EDT [facility] MPV 9.1 8.8 - 12.5 fL LAB HEMATOLOGY METHOD 05/03/2025 3:33 AM EDT [facility] nRBC 0.0 <=0.0 per 100 WBCs LAB HEMATOLOGY METHOD 05/03/2025 3:33 AM EDT [facility] Differential Type Automated LAB HEMATOLOGY METHOD 05/03/2025 3:33 AM EDT [facility] Neutrophils % 70 % LAB HEMATOLOGY METHOD 05/03/2025 3:33 AM EDT [facility] Lymphocytes % 15 % LAB HEMATOLOGY METHOD 05/03/2025 3:33 AM EDT [facility] Monocytes % 9 % LAB HEMATOLOGY METHOD 05/03/2025 3:33 AM EDT [facility] Eosinophils % 5 % LAB HEMATOLOGY METHOD 05/03/2025 3:33 AM EDT [facility] Basophils % 0 % LAB HEMATOLOGY METHOD 05/03/2025 3:33 AM EDT [facility] Immature Granulocytes % 1 % LAB HEMATOLOGY METHOD 05/03/2025 3:33 AM EDT [facility] Neutrophils Absolute 4.85 1.60 - 6.10 10*3/uL LAB HEMATOLOGY METHOD 05/03/2025 3:33 AM EDT [facility] Lymphocytes Absolute 1.03(L) 1.20 - 3.90 10*3/uL LAB HEMATOLOGY METHOD 05/03/2025 3:33 AM EDT [facility] Monocytes Absolute 0.59 0.30 - 0.90 10*3/uL LAB HEMATOLOGY METHOD 05/03/2025 3:33 AM EDT [facility] Eosinophils Absolute 0.32 0.00 - 0.50 10*3/uL LAB HEMATOLOGY METHOD 05/03/2025 3:33 AM EDT [facility] Basophils Absolute 0.03 0.00 - 0.10 10*3/uL LAB HEMATOLOGY METHOD 05/03/2025 3:33 AM EDT [facility] Immature Granulocytes Absolute 0.04 0.00 - 0.06 10*3/uL LAB HEMATOLOGY METHOD 05/03/2025 3:33 AM EDT [facility] Blood Venous blood specimen / Unknown Venipuncture / Unknown 05/03/2025 3:16 AM EDT 05/03/2025 3:25 AM EDT Narrative [facility] - 05/03/2025 3:33 AM EDT Therapeutic decision making should be based on absolute values, rather than percentages. us Marjorie Myers MD LAB BLOOD ORDERABLES Final Resul t [facility] [address] [place] [address] * (ABNORMAL) Basic Metabolic Panel, Plasma (05/03/2025 3:16 AM EDT) Glucose, Plasma 399(H) 74 - 99 mg/dL 05/03/2025 4:02 AM EDT [facility] BUN, Plasma 15 7 - 21 mg/dL 05/03/2025 4:02 AM EDT [facility] Creatinine, Plasma 0.78 0.70 - 1.20 mg/dL 05/03/2025 4:02 AM EDT [facility] BUN/Creatinine Ratio 19 05/03/2025 4:02 AM EDT [facility] Sodium, Plasma 136 136 - 145 mmol/L 05/03/2025 4:02 AM EDT [facility] Potassium, Plasma 3.6 3.6 - 4.9 mmol/L 05/03/2025 4:02 AM EDT [facility] Chloride, Plasma 90(L) 97 - 107 mmol/L 05/03/2025 4:02 AM EDT [facility] CO2, Plasma 37(H) 22 - 29 mmol/L 05/03/2025 4:02 AM EDT [facility] Anion Gap 9 6 - 16 mmol/L 05/03/2025 4:02 AM EDT [facility] Total Calcium, Plasma 9.0 8.9 - 10.2 mg/dL 05/03/2025 4:02 AM EDT [facility] eGFRcr 110.7 mL/min/1.7 3m*2 05/03/2025 4:02 AM EDT [facility] Comment:Reported eGFRcr in m L/min/1.73m2 is based the CKD-EPI 2020 equation that does not use a race coefficient. Blood Venous blood specimen / Unknown Venipuncture / Unknown 05/03/2025 3:16 AM EDT 05/03/2025 3:24 AM EDT us Marjorie Myers MD LAB BLOOD ORDERABLES Final Resul t Performing Organization Address City/[facility]/ZIP Co de Phone Number [facility] [address] [place] [address] * (ABNORMAL) Magnesium, Plasma (05/03/2025 3:16 AM EDT) Magnesium, Plasma 1.7(L) 1.9 - 2.4 mg/dL 05/03/2025 4:02 AM EDT [facility] Blood Venous blood specimen / Unknown Venipuncture / Unknown 05/03/2025 3:16 AM EDT 05/03/2025 3:24 AM EDT us Marjorie Myers MD LAB BLOOD ORDERABLES Final Resul t [facility] [address] [place] [address] * Phosphorus, Plasma (05/03/2025 3:16 AM EDT) Phosphorus, Plasma 3.6 2.5 - 4.5 mg/dL 05/03/2025 4:02 AM EDT [facility] Blood Venous blood specimen / Unknown Venipuncture / Unknown 05/03/2025 3:16 AM EDT 05/03/2025 3:24 AM EDT Marjorie Myers MD LAB BLOOD ORDERABLES Final Resul t Performing Organization Address City/[facility]/[place] [address] * Hepatitis B Core Total Antibody IgG,IgM (05/03/2025 3:16 AM EDT) Hepatitis B Core Total Antibody IgG,IgM Negative Negative 05/03/2025 4:28 AM EDT [facility] Blood Venous blood specimen / Unknown Venipuncture / Unknown 05/03/2025 3:16 AM EDT 05/03/2025 3:24 AM EDT Diane Guzman MD LAB BLOOD ORDERABLES Final Result Performing Organization Address [facility] [place] [address] * Hepatitis B Surface Antigen (05/03/2025 3:16 AM EDT) Hepatitis B Surf Antigen Negative Negative 05/03/2025 4:28 AM EDT [facility] Blood Venous blood specimen / Unknown Venipuncture / Unknown 05/03/2025 3:16 AM EDT 05/03/2025 3:24 AM EDT Diane Guzman MD LAB BLOOD ORDERABLES Final Result Performing Organization Address City/[facility] [place] [address] * Hepatitis B Surface Antibody, Quantitative (05/03/2025 3:16 AM EDT) Hepatitis B Surface Antibody, Quantitative <8.00 NonReactiv e: <8, Grayzone: 8 - <12, Reactive: >= 12 mIU/mL 05/03/2025 4:28 AM EDT [facility] Comment: Nonreactive. Individual is considered not immune to HBV infection. Blood Venous blood specimen / Unknown Venipuncture / Unknown 05/03/2025 3:16 AM EDT 05/03/2025 3:24 AM EDT Diane Guzman MD LAB BLOOD ORDERABLES Final Result Performing Organization Address [facility] Co de Phone Number [facility] [address] [place] [address] * Hepatitis A Antibody IgG (05/03/2025 3:16 AM EDT) [facility] Hepatitis A Antibody IgG Negative Negative 05/03/2025 4:28 AM EDT [facility] Blood Venous blood specimen / Unknown Venipuncture / Unknown 05/03/2025 3:16 AM EDT 05/03/2025 3:24 AM EDT Diane Guzman MD LAB BLOOD ORDERABLES Final Result Performing Organization Address [facility] [place] [address] * (ABNORMAL) POCT glucose meter (05/02/2025 8:48 PM EDT) [facility] POCT Glucose 325(H) 74 - 99 [...] 05/02/2025 8:50 PM EDT [facility] Hydraulic Lift Operator ID Maribell Saeed 8:50 PM EDT [facility] Device ID [id number] 05/02/2025 8:50 PM EDT [facility] Specimen Type POC Capillary 05/02/2025 8:50 PM EDT [facility] Blood Capillary blood specimen / Unknown 05/02/2025 8:48 PM EDT 05/02/2025 8:50 PM EDT Diane Guzman MD LAB POINT OF CARE T EST DOCKED DEVICE UNSOLICITED RESULTS Final Result Performing Organization Address City/[facility] Co de Phone Number [facility] [address] [place] [address] * (ABNORMAL) POCT glucose meter (05/02/2025 4:30 PM EDT) [facility] POCT Glucose 250(H) 74 - 99 [...] Comment 05/02/2025 4:32 PM EDT [facility] Hydraulic Lift Operator ID Sebastián Kenny 4:32 PM EDT [facility] Device ID [id number] 05/02/2025 4:32 PM EDT [facility] Specimen Type POC Capillary 05/02/2025 4:32 PM EDT [facility] Blood Capillary blood specimen / Unknown 05/02/2025 4:30 PM EDT 05/02/2025 4:32 PM EDT Diane Guzman MD LAB POINT OF CARE T EST DOCKED DEVICE UNSOLICITED RESULTS Final Result Performing Organization Address City/[facility]/ZIP Co de Phone Number [facility] [address] [place] [address] * Nasopharyngeal Respiratory Panel (05/02/2025 1:05 PM EDT) [facility] Nasopharyngeal Respiratory PCR Interpretation Not Detected for all analytes Not Detected for all analytes 05/02/2025 3:14 PM EDT [facility] Swab Nasopharyngeal structure / Unknown Non-blood Collection / Unknown 05/02/2025 1:05 PM EDT 05/02/2025 1:12 PM EDT Narrative [facility] - 05/02/2025 3:14 PM EDT [...] Respiratory PCR Panel is performed using the [employer] instrument. This test is FDA approved for use with Nasopharyngeal swabs only. This test is used for clinical purposes. It should not be regarded as investigational or for research. The [facility] Clinical Microbiology Laboratory is certified under the Clinical Laboratory Improvement Amendments of 1988 (CLIA-88) as qualified to perform high complexity clinical laboratory testing. Diane Guzman MD LAB MICROBIOLOGY - GENERAL ORDERABLES Final Result [facility] [address] [place] [address] * (ABNORMAL) POCT glucose meter (05/02/2025 12:08 PM EDT) POCT Glucose 278(H) 74 - 99 mg/dL 05/02/2025 12:10 PM EDT [facility] Comment:Accuracy of a glucos e result [...] for testing. Comment 05/02/2025 12:10 PM EDT [facility] Hydraulic Lift Operator ID Sebastián Kenny 12:10 PM EDT [facility] Device ID [id number] 05/02/2025 12:10 PM EDT [facility] Specimen Type POC Capillary 05/02/2025 12:10 PM EDT [facility] Blood Capillary blood specimen / Unknown 05/02/2025 12:08 PM EDT 05/02/2025 12:10 PM EDT Diane Guzman MD LAB POINT OF CARE T EST DOCKED DEVICE UNSOLICITED RESULTS Final Result Performing Organization Address City/[facility]/ZIP Co de Phone Number [facility] [address] [place] [address] * (ABNORMAL) POCT glucose meter (05/02/2025 8:11 [...] for testing. Comment 05/02/2025 8:12 AM EDT [facility] Hydraulic Lift Operator ID Sebastián Kenny 8:12 AM EDT [facility] Device ID [id number] 05/02/2025 8:12 AM EDT [facility] Specimen Type POC Capillary 05/02/2025 8:12 AM EDT [facility] Blood Capillary blood specimen / Unknown 05/02/2025 8:11 AM EDT 05/02/2025 8:12 AM EDT Diane Guzman MD LAB POINT OF CARE T EST DOCKED DEVICE UNSOLICITED RESULTS Final Result [facility] [address] [place] [address] * (ABNORMAL) POCT glucose meter (05/02/2025 4:01 [...] Comment 05/02/2025 4:03 AM EDT [facility] Hydraulic Lift Operator ID Stella Coleman 05/02/20 4:03 AM EDT [facility] Device ID [id number] 05/02/2025 4:03 AM EDT [facility] Specimen Type POC Capillary 05/02/2025 4:03 AM EDT [facility] Blood Capillary blood specimen / Unknown 05/02/2025 4:01 AM EDT 05/02/2025 4:03 AM EDT us Marjorie Myers MD LAB POINT OF CARE TE ST DOCKED DEVICE UNSOLICITED RESULTS Final Result Performing Organization Address City/State/[facility] Co de Phone Number [facility] [address] [place] [address] * (ABNORMAL) CBC and Differential (05/02/2025 3:10 AM EDT) WBC Count 7.39 3.70 - 10.30 10*3/uL LAB HEMATOLOGY METHOD 05/02/2025 3:23 AM EDT [facility] RBC Count 3.88(L) 4.60 - 6.10 10*6/uL LAB HEMATOLOGY METHOD 05/02/2025 3:23 AM EDT [facility] HGB 8.8(L) 13.7 - 17.5 g/dL LAB HEMATOLOGY METHOD 05/02/2025 3:23 AM EDT [facility] HCT 29.3(L) 40.0 - 51.0 % LAB HEMATOLOGY METHOD 05/02/2025 3:23 AM EDT [facility] Platelet Count 205 155 - 369 10*3/uL LAB HEMATOLOGY METHOD 05/02/2025 3:23 AM EDT [facility] MCV 76(L) 79 - 98 fL LAB HEMATOLOGY METHOD 05/02/2025 3:23 AM EDT [facility] MCH 22.7(L) 26.0 - 32.0 pg LAB HEMATOLOGY METHOD 05/02/2025 3:23 AM EDT [facility] MCHC 30.0(L) 30.7 - 35.5 g/dL LAB HEMATOLOGY METHOD 05/02/2025 3:23 AM EDT [facility] RDW 19.1(H) 11.5 - 14.5 % LAB HEMATOLOGY METHOD 05/02/2025 3:23 AM EDT [facility] MPV 8.5(L) 8.8 - 12.5 fL LAB HEMATOLOGY METHOD 05/02/2025 3:23 AM EDT [facility] nRBC 0.0 <=0.0 per 100 WBCs LAB HEMATOLOGY METHOD 05/02/2025 3:23 AM EDT [facility] Differential Type Automated LAB HEMATOLOGY METHOD 05/02/2025 3:23 AM EDT [facility] Neutrophils % 74 % LAB HEMATOLOGY METHOD 05/02/2025 3:23 AM EDT [facility] Lymphocytes % 13 % LAB HEMATOLOGY METHOD 05/02/2025 3:23 AM EDT [facility] Monocytes % 8 % LAB HEMATOLOGY METHOD 05/02/2025 3:23 AM EDT [facility] Eosinophils % 4 % LAB HEMATOLOGY METHOD 05/02/2025 3:23 AM EDT [facility] Basophils % 0 % LAB HEMATOLOGY METHOD 05/02/2025 3:23 AM EDT [facility] Immature Granulocytes % 1 % LAB HEMATOLOGY METHOD 05/02/2025 3:23 AM EDT [facility] Neutrophils Absolute 5.45 1.60 - 6.10 10*3/uL LAB HEMATOLOGY METHOD 05/02/2025 3:23 AM EDT [facility] Lymphocytes Absolute 0.96(L) 1.20 - 3.90 10*3/uL LAB HEMATOLOGY METHOD 05/02/2025 3:23 AM EDT [facility] Monocytes Absolute 0.62 0.30 - 0.90 10*3/uL LAB HEMATOLOGY METHOD 05/02/2025 3:23 AM EDT [facility] Eosinophils Absolute 0.30 0.00 - 0.50 10*3/uL LAB HEMATOLOGY METHOD 05/02/2025 3:23 AM EDT [facility] Basophils Absolute 0.01 0.00 - 0.10 10*3/uL LAB HEMATOLOGY METHOD 05/02/2025 3:23 AM EDT [facility] Immature Granulocytes Absolute 0.05 0.00 - 0.06 10*3/uL LAB HEMATOLOGY METHOD 05/02/2025 3:23 AM EDT [facility] Blood Venous blood specimen / Unknown Venipuncture / Unknown 05/02/2025 3:10 AM EDT 05/02/2025 3:14 AM EDT Narrative [facility] - 05/02/2025 3:23 AM EDT Therapeutic decision making should be based on absolute values, rather than percentages. us Marjorie Myers MD LAB BLOOD ORDERABLES Final Resul t [facility] [address] [place] [address] * (ABNORMAL) Basic Metabolic Panel, Plasma (05/02/2025 3:10 AM EDT) Glucose, Plasma 358(H) 74 - 99 mg/dL 05/02/2025 3:45 AM EDT [facility] BUN, Plasma 12 7 - 21 mg/dL 05/02/2025 3:45 AM EDT [facility] Creatinine, Plasma 0.73 0.70 - 1.20 mg/dL 05/02/2025 3:45 AM EDT [facility] BUN/Creatinine Ratio 16 05/02/2025 3:45 AM EDT [facility] Sodium, Plasma 134(L) 136 - 145 mmol/L 05/02/2025 3:45 AM EDT [facility] Potassium, Plasma 3.3(L) 3.6 - 4.9 mmol/L 05/02/2025 3:45 AM EDT [facility] Chloride, Plasma 90(L) 97 - 107 mmol/L 05/02/2025 3:45 AM EDT [facility] CO2, Plasma 37(H) 22 - 29 mmol/L 05/02/2025 3:45 AM EDT [facility] Anion Gap 7 6 - 16 mmol/L 05/02/2025 3:45 AM EDT [facility] Total Calcium, Plasma 8.7(L) 8.9 - 10.2 mg/dL 05/02/2025 3:45 AM EDT [facility] eGFRcr 112.9 mL/min/1.7 3m*2 05/02/2025 3:45 AM EDT [facility] Comment:Reported eGFRcr in m L/min/1.73m2 is based the CKD-EPI 2020 equation that does not use a race coefficient. Blood Venous blood specimen / Unknown Venipuncture / Unknown 05/02/2025 3:10 AM EDT 05/02/2025 3:15 AM EDT us Marjorie Myers MD LAB BLOOD ORDERABLES Final Resul t Performing Organization Address City/[facility]/ZIP Co de Phone Number [facility] [address] [place] [address] * (ABNORMAL) Magnesium, Plasma (05/02/2025 3:10 AM EDT) Magnesium, Plasma 1.6(L) 1.9 - 2.4 mg/dL 05/02/2025 3:45 AM EDT [facility] Blood Venous blood specimen / Unknown Venipuncture / Unknown 05/02/2025 3:10 AM EDT 05/02/2025 3:15 AM EDT us Marjorie Myers MD LAB BLOOD ORDERABLES Final Resul t Performing Organization Address City/[facility] Co de Phone Number [facility] [address] [place] [address] * Phosphorus, Plasma (05/02/2025 3:10 AM EDT) Phosphorus, Plasma 3.0 2.5 - 4.5 mg/dL 05/02/2025 3:45 AM EDT [facility] Blood Venous blood specimen / Unknown Venipuncture / Unknown 05/02/2025 3:10 AM EDT 05/02/2025 3:15 AM EDT us Marjorie Myers MD LAB BLOOD ORDERABLES Final Resul t Performing Organization Address City/[facility]/ZIP Co de Phone Number [facility] [address] [place] [address] * Creatine Kinase (CK), Total (05/02/2025 3:10 AM EDT) [facility] Creatine Kinase, Plasma 50 49 - 320 U/L 05/02/2025 3:45 AM EDT [facility] Blood Venous blood specimen / Unknown Venipuncture / Unknown 05/02/2025 3:10 AM EDT 05/02/2025 3:15 AM EDT us Marjorie Myers MD LAB BLOOD ORDERABLES Final Resul t [facility] [address] [place] [address] * (ABNORMAL) POCT glucose meter (05/01/2025 8:26 PM EDT) [facility] POCT Glucose 316(H) 74 - 99 [...] 05/01/2025 8:27 PM EDT [facility] Hydraulic Lift Operator ID Stella Coleman 05/01/20 8:27 PM EDT [facility] Device ID [id number] 05/01/2025 8:27 PM EDT [facility] Specimen Type POC Capillary 05/01/2025 8:27 PM EDT [facility] Blood Capillary blood specimen / Unknown 05/01/2025 8:26 PM EDT 05/01/2025 8:27 PM EDT us Marjorie Myers MD LAB POINT OF CARE TE ST DOCKED DEVICE UNSOLICITED RESULTS Final Result [facility] [address] [place] [address] * (ABNORMAL) POCT glucose meter (05/01/2025 5:55 PM EDT) [facility] POCT Glucose 294(H) 74 - 99 mg/dL 05/01/2025 5:57 PM EDT [facility] Comment:Accuracy of a [...] Comment 05/01/2025 5:57 PM EDT [facility] Hydraulic Lift Operator ID Sebastián Kenny 5:57 PM EDT [facility] Device ID [id number] 05/01/2025 5:57 PM EDT [facility] Specimen Type POC Capillary 05/01/2025 5:57 PM EDT [facility] Blood Capillary blood specimen / Unknown 05/01/2025 5:55 PM EDT 05/01/2025 5:57 PM EDT Marjorie Myers MD LAB POINT OF CARE TE ST DOCKED DEVICE UNSOLICITED RESULTS Final Result Performing Organization Address City/State/[facility] Co de Phone Number [facility] [address] [place] [address] * (ABNORMAL) POCT glucose meter (05/01/2025 11:51 AM EDT) [facility] POCT Glucose 301(H) 74 - 99 [...] 05/01/2025 11:53 AM EDT [facility] Hydraulic Lift Operator ID Sebastián Kenny 11:53 AM EDT [facility] Device ID [id number] 05/01/2025 11:53 AM EDT [facility] Specimen Type POC Capillary 05/01/2025 11:53 AM EDT [facility] Blood Capillary blood specimen / Unknown 05/01/2025 11:51 AM EDT 05/01/2025 11:53 AM EDT Marjorie Myers MD LAB POINT OF CARE TE ST DOCKED DEVICE UNSOLICITED RESULTS Final Result Performing Organization Address City/[facility] Co de Phone Number [facility] [address] [place] [address] * (ABNORMAL) POCT glucose meter (05/01/2025 9:13 [...] Comment 05/01/2025 9:15 AM EDT [facility] Hydraulic Lift Operator ID Francisco Javier Martin 05/01/2025 9:15 AM EDT [facility] Device ID [id number] 05/01/2025 9:15 AM EDT [facility] Specimen Type POC Capillary 05/01/2025 9:15 AM EDT [facility] Blood Capillary blood specimen / Unknown 05/01/2025 9:13 AM EDT 05/01/2025 9:15 AM EDT Marjorie Myers MD LAB POINT OF CARE TE ST DOCKED DEVICE UNSOLICITED RESULTS Final Result Performing Organization Address City/[facility]/ZIP Co de Phone Number [facility] [address] [place] [address] * Surgical Pathology Exam (05/01/2025 8:13 AM EDT) Case Report Surgical Pathology Case: [id number] Authorizing Provider: Mary Vicente MD Collected: 05/01/2025 0813 Ordering Location: [facility] Received: 05/01/2025 0917 Pathologist: Vidya Ly MD Specimens: A) - Toe, Right, R 5th toe B) - Toe, Right, R 5th toe margin 05/09/2025 9:56 AM EDT [facility] Correction History Case amended to provide diagnosis after final decal sections received 05/09/2025 9:56 AM EDT [facility] Comment:These results have b een appended to a previously final verified report. Final Diagnosis A. RIGHT FIFTH TOE, AMPUTATION: - ULCER WITH SUPPURATIVE INFLAMMATION, GANGRENOUS NECROSIS, AND UNDERLYING ACUTE OSTEOMYELITIS. B. RIGHT FIFTH TOE MARGIN, RESECTION: - NO ACUTE OSTEOMYELITIS IDENTIFIED. 05/09/2025 9:56 AM EDT [facility] Amendment electronically signed by Vidya Ly MD on 05/09/2025 at 0956 EDT at 1233 EDT Comment:Corrected result: Pr eviously reported as [Previous value contains rich text formatting which cannot be displayed here] (see Result History) on 05/05/2025 at 1233 EDT. 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 R 5TH [...] The wound extends into the underlying bone. Transport Driver sections are submitted as follows: A1-A2: Necrotic lateral skin A3: Bone underlying gaping wound, following decalcification A4: Bone margin, following decalcification BLAS Kwok ([facility]) B. R 5TH TOE MARGIN The specimen is received fresh and placed in formalin, labeled R 5th toe MARGIN , and consists of a 2.8 x 2.8 x 0.6 cm aggregate of hemorrhagic bony fragments. The specimen is entirely submitted in cassette B1, following decalcification. Cold Time: 25m BLAS Kwok ([facility]) 05/09/2025 9:56 AM EDT [facility] Note: 05/09/2025 9:56 AM EDT [facility] Comment:Corrected result: Pr eviously reported [...] Edited Result - Final Performing Organization Address City/[facility]/ZIP Co de Phone Number [facility] [address] [place] [address] * Type and Screen (05/01/2025 6:49 AM [...] ORDERA BLES Final Result Performing Organization Address [facility]/ZIP Co de Phone Number BLOOD BANK [address] [place] [address], * (ABNORMAL) POCT glucose meter (05/01/2025 6:48 AM EDT) [facility] POCT Glucose 222(H) 74 - 99 mg/dL 05/01/2025 6:50 AM EDT [facility] Comment:Accuracy of a [...] Comment 05/01/2025 6:50 AM EDT [facility] Hydraulic Lift Operator ID Emelina Romero 6:50 AM EDT [facility] Device ID [id number] 05/01/2025 6:50 AM EDT [facility] Specimen Type POC Venous 05/01/2025 6:50 AM EDT [facility] Blood Venous blood specimen / Unknown 05/01/2025 6:48 AM EDT 05/01/2025 6:50 AM EDT us Marjorie Myers MD LAB POINT OF CARE TE ST DOCKED DEVICE UNSOLICITED RESULTS Final Result Performing Organization Address City/[facility]/ZIP Co de Phone Number [facility] [address] [place] [address] * Creatine Kinase (CK), Total (05/01/2025 2:14 AM EDT) [facility] Creatine Kinase, Plasma 60 49 - 320 U/L 05/01/2025 2:53 AM EDT [facility] Blood Venous blood specimen / Unknown Venipuncture / Unknown 05/01/2025 2:14 AM EDT 05/01/2025 2:26 AM EDT us Marjorie Myers MD LAB BLOOD ORDERABLES Final Resul t [facility] [address] [place] [id number] * (ABNORMAL) CBC and Differential (05/01/2025 2:14 AM EDT) [facility] WBC Count 6.96 3.70 - 10.30 10*3/uL LAB HEMATOLOGY METHOD 05/01/2025 2:37 AM EDT [facility] RBC Count 4.23(L) 4.60 - 6.10 10*6/uL LAB HEMATOLOGY METHOD 05/01/2025 2:37 AM EDT [facility] HGB 9.8(L) 13.7 - 17.5 g/dL LAB HEMATOLOGY METHOD 05/01/2025 2:37 AM EDT [facility] HCT 32.5(L) 40.0 - 51.0 % LAB HEMATOLOGY METHOD 05/01/2025 2:37 AM EDT [facility] Platelet Count 218 155 - 369 10*3/uL LAB HEMATOLOGY METHOD 05/01/2025 2:37 AM EDT [facility] MCV 77(L) 79 - 98 fL LAB HEMATOLOGY METHOD 05/01/2025 2:37 AM EDT [facility] MCH 23.2(L) 26.0 - 32.0 pg LAB HEMATOLOGY METHOD 05/01/2025 2:37 AM EDT [facility] MCHC 30.2(L) 30.7 - 35.5 g/dL LAB HEMATOLOGY METHOD 05/01/2025 2:37 AM EDT [facility] RDW 19.1(H) 11.5 - 14.5 % LAB HEMATOLOGY METHOD 05/01/2025 2:37 AM EDT [facility] MPV 8.4(L) 8.8 - 12.5 fL LAB HEMATOLOGY METHOD 05/01/2025 2:37 AM EDT [facility] nRBC 0.0 <=0.0 per 100 WBCs LAB HEMATOLOGY METHOD 05/01/2025 2:37 AM EDT [facility] Differential Type Automated LAB HEMATOLOGY METHOD 05/01/2025 2:37 AM EDT [facility] Neutrophils % 76 % LAB HEMATOLOGY METHOD 05/01/2025 2:37 AM EDT [facility] Lymphocytes % 11 % LAB HEMATOLOGY METHOD 05/01/2025 2:37 AM EDT [facility] Monocytes % 8 % LAB HEMATOLOGY METHOD 05/01/2025 2:37 AM EDT [facility] Eosinophils % 4 % LAB HEMATOLOGY METHOD 05/01/2025 2:37 AM EDT [facility] Basophils % 0 % LAB HEMATOLOGY METHOD 05/01/2025 2:37 AM EDT [facility] Immature Granulocytes % 1 % LAB HEMATOLOGY METHOD 05/01/2025 2:37 AM EDT [facility] Neutrophils Absolute 5.26 1.60 - 6.10 10*3/uL LAB HEMATOLOGY METHOD 05/01/2025 2:37 AM EDT [facility] Lymphocytes Absolute 0.79(L) 1.20 - 3.90 10*3/uL LAB HEMATOLOGY METHOD 05/01/2025 2:37 AM EDT [facility] Monocytes Absolute 0.57 0.30 - 0.90 10*3/uL LAB HEMATOLOGY METHOD 05/01/2025 2:37 AM EDT [facility] Eosinophils Absolute 0.28 0.00 - 0.50 10*3/uL LAB HEMATOLOGY METHOD 05/01/2025 2:37 AM EDT [facility] Basophils Absolute 0.02 0.00 - 0.10 10*3/uL LAB HEMATOLOGY METHOD 05/01/2025 2:37 AM EDT [facility] Immature Granulocytes Absolute 0.04 0.00 - 0.06 10*3/uL LAB HEMATOLOGY METHOD 05/01/2025 2:37 AM EDT [facility] Blood Venous blood specimen / Unknown Venipuncture / Unknown 05/01/2025 2:14 AM EDT 05/01/2025 2:26 AM EDT Narrative [facility] - 05/01/2025 2:37 AM EDT Therapeutic decision making should be based on absolute values, rather than percentages. us Marjorie Myers MD LAB BLOOD ORDERABLES Final Resul t [facility] [address] [place] [address] * (ABNORMAL) Basic Metabolic Panel, Plasma (05/01/2025 2:14 AM EDT) Glucose, Plasma 266(H) 74 - 99 mg/dL 05/01/2025 2:53 AM EDT [facility] BUN, Plasma 9 7 - 21 mg/dL 05/01/2025 2:53 AM EDT [facility] Creatinine, Plasma 0.71 0.70 - 1.20 mg/dL 05/01/2025 2:53 AM EDT [facility] BUN/Creatinine Ratio 13 05/01/2025 2:53 AM EDT [facility] Sodium, Plasma 137 136 - 145 mmol/L 05/01/2025 2:53 AM EDT [facility] Potassium, Plasma 3.4(L) 3.6 - 4.9 mmol/L 05/01/2025 2:53 AM EDT [facility] Chloride, Plasma 91(L) 97 - 107 mmol/L 05/01/2025 2:53 AM EDT [facility] CO2, Plasma 36(H) 22 - 29 mmol/L 05/01/2025 2:53 AM EDT [facility] Anion Gap 10 6 - 16 mmol/L 05/01/2025 2:53 AM EDT [facility] Total Calcium, Plasma 8.6(L) 8.9 - 10.2 mg/dL 05/01/2025 2:53 AM EDT [facility] eGFRcr 113.9 mL/min/1.7 3m*2 05/01/2025 2:53 AM EDT [facility] Comment:Reported eGFRcr in m L/min/1.73m2 is based the CKD-EPI 2020 equation that does not use a race coefficient. Blood Venous blood specimen / Unknown Venipuncture / Unknown 05/01/2025 2:14 AM EDT 05/01/2025 2:26 AM EDT Marjorie Myers MD LAB BLOOD ORDERABLES Final Resul t [facility] [address] [place] [address] * (ABNORMAL) Magnesium, Plasma (05/01/2025 2:14 AM EDT) Magnesium, Plasma 1.8(L) 1.9 - 2.4 mg/dL 05/01/2025 2:53 AM EDT [facility] Blood Venous blood specimen / Unknown Venipuncture / Unknown 05/01/2025 2:14 AM EDT 05/01/2025 2:26 AM EDT us Marjorie Myers MD LAB BLOOD ORDERABLES Final Resul t Performing Organization Address City/[facility]/ZIP Co de Phone Number [facility] [address] [place] [address] * Phosphorus, Plasma (05/01/2025 2:14 AM EDT) [facility] Phosphorus, Plasma 3.0 2.5 - 4.5 mg/dL 05/01/2025 2:53 AM EDT [facility] Blood Venous blood specimen / Unknown Venipuncture / Unknown 05/01/2025 2:14 AM EDT 05/01/2025 2:26 AM EDT Result Shannon Myers MD LAB BLOOD ORDERABLES Final Resul t Performing Organization Address [facility] de Phone Number [facility] [address] [place] [address] * (ABNORMAL) POCT glucose meter (04/30/2025 8:21 PM EDT) [facility] POCT Glucose 226(H) 74 - 99 [...] 04/30/2025 8:23 PM EDT [facility] Hydraulic Lift Operator ID Sandra Perez 04/30/20 8:23 PM EDT [facility] Device ID [id number] 04/30/2025 8:23 PM EDT [facility] Specimen Type POC Capillary 04/30/2025 8:23 PM EDT [facility] Blood Capillary blood specimen / Unknown 04/30/2025 8:21 PM EDT 04/30/2025 8:23 PM EDT Result Shannon Myers MD LAB POINT OF CARE TE ST DOCKED DEVICE UNSOLICITED RESULTS Final Result [facility] [address], [place] [address] * (ABNORMAL) POCT glucose meter (04/30/2025 4:19 PM EDT) [facility] POCT Glucose 173(H) 74 - 99 mg/dL [...] Comment 04/30/2025 4:54 PM EDT [facility] Hydraulic Lift Operator ID Priyanka Negrete 04/30/20 4:54 PM EDT [facility] Device ID [id number] 04/30/2025 4:54 PM EDT [facility] Specimen Type POC Capillary 04/30/2025 4:54 PM EDT [facility] Blood Capillary blood specimen / Unknown 04/30/2025 4:19 PM EDT 04/30/2025 4:54 PM EDT Marjorie Myers MD LAB POINT OF CARE TE ST DOCKED DEVICE UNSOLICITED RESULTS Final Result Performing Organization Address City/[facility]/ZIP Co de Phone Number [facility] [address] [place] [address] * (ABNORMAL) POCT glucose meter (04/30/2025 12:11 PM EDT) [facility] POCT Glucose 226(H) 74 - 99 [...] 04/30/2025 12:50 PM EDT [facility] Hydraulic Lift Operator ID Priyanka Negrete 04/30/20 12:50 PM EDT [facility] Device ID [id number] 04/30/2025 12:50 PM EDT [facility] Specimen Type POC Capillary 04/30/2025 12:50 PM EDT [facility] Blood Capillary blood specimen / Unknown 04/30/2025 12:11 PM EDT 04/30/2025 12:50 PM EDT us Marjorie Myers MD LAB POINT OF CARE TE ST DOCKED DEVICE UNSOLICITED RESULTS Final Result Performing Organization Address City/[facility]/ZIP Co de Phone Number [facility] [address] [place] [address] * (ABNORMAL) POCT glucose meter (04/30/2025 8:18 AM EDT) Pathologist [facility] POCT Glucose 212(H) 74 - 99 [...] 04/30/2025 8:55 AM EDT [facility] Hydraulic Lift Operator ID Priyanka Negrete 04/30/20 8:55 AM EDT [facility] Device ID [id number] 04/30/2025 8:55 AM EDT [facility] Specimen Type POC Capillary 04/30/2025 8:55 AM EDT [facility] Blood Capillary blood specimen / Unknown 04/30/2025 8:18 AM EDT 04/30/2025 8:55 AM EDT us Marjorie Myers MD LAB POINT OF CARE TE ST DOCKED DEVICE UNSOLICITED RESULTS Final Result Performing Organization Address City/[facility]/ZIP Co de Phone Number [facility] [address] [place] [address] * (ABNORMAL) CBC and Differential (04/30/2025 3:19 AM EDT) Pathologist [facility] WBC Count 8.84 3.70 - 10.30 10*3/uL LAB HEMATOLOGY METHOD 04/30/2025 3:35 AM EDT [facility] RBC Count 4.31(L) 4.60 - 6.10 10*6/uL LAB HEMATOLOGY METHOD 04/30/2025 3:35 AM EDT [facility] HGB 9.6(L) 13.7 - 17.5 g/dL LAB HEMATOLOGY METHOD 04/30/2025 3:35 AM EDT [facility] HCT 32.6(L) 40.0 - 51.0 % LAB HEMATOLOGY METHOD 04/30/2025 3:35 AM EDT [facility] Platelet Count 245 155 - 369 10*3/uL LAB HEMATOLOGY METHOD 04/30/2025 3:35 AM EDT [facility] MCV 76(L) 79 - 98 fL LAB HEMATOLOGY METHOD 04/30/2025 3:35 AM EDT [facility] MCH 22.3(L) 26.0 - 32.0 pg LAB HEMATOLOGY METHOD 04/30/2025 3:35 AM EDT [facility] MCHC 29.4(L) 30.7 - 35.5 g/dL LAB HEMATOLOGY METHOD 04/30/2025 3:35 AM EDT [facility] RDW 19.1(H) 11.5 - 14.5 % LAB HEMATOLOGY METHOD 04/30/2025 3:35 AM EDT [facility] MPV 8.5(L) 8.8 - 12.5 fL LAB HEMATOLOGY METHOD 04/30/2025 3:35 AM EDT [facility] nRBC 0.0 <=0.0 per 100 WBCs LAB HEMATOLOGY METHOD 04/30/2025 3:35 AM EDT [facility] Differential Type Automated LAB HEMATOLOGY METHOD 04/30/2025 3:35 AM EDT [facility] Neutrophils % 78 % LAB HEMATOLOGY METHOD 04/30/2025 3:35 AM EDT [facility] Lymphocytes % 11 % LAB HEMATOLOGY METHOD 04/30/2025 3:35 AM EDT [facility] Monocytes % 7 % LAB HEMATOLOGY METHOD 04/30/2025 3:35 AM EDT [facility] Eosinophils % 3 % LAB HEMATOLOGY METHOD 04/30/2025 3:35 AM EDT [facility] Basophils % 0 % LAB HEMATOLOGY METHOD 04/30/2025 3:35 AM EDT [facility] Immature Granulocytes % 1 % LAB HEMATOLOGY METHOD 04/30/2025 3:35 AM EDT [facility] Neutrophils Absolute 6.90(H) 1.60 - 6.10 10*3/uL LAB HEMATOLOGY METHOD 04/30/2025 3:35 AM EDT [facility] Lymphocytes Absolute 0.95(L) 1.20 - 3.90 10*3/uL LAB HEMATOLOGY METHOD 04/30/2025 3:35 AM EDT [facility] Monocytes Absolute 0.64 0.30 - 0.90 10*3/uL LAB HEMATOLOGY METHOD 04/30/2025 3:35 AM EDT [facility] Eosinophils Absolute 0.29 0.00 - 0.50 10*3/uL LAB HEMATOLOGY METHOD 04/30/2025 3:35 AM EDT [facility] Basophils Absolute 0.02 0.00 - 0.10 10*3/uL LAB HEMATOLOGY METHOD 04/30/2025 3:35 AM EDT [facility] Immature Granulocytes Absolute 0.04 0.00 - 0.06 10*3/uL LAB HEMATOLOGY METHOD 04/30/2025 3:35 AM EDT [facility] Blood Venous blood specimen / Unknown Venipuncture / Unknown 04/30/2025 3:19 AM EDT 04/30/2025 3:26 AM EDT Narrative [facility] - 04/30/2025 3:35 AM EDT Therapeutic decision making should be based on absolute values, rather than percentages. us Marjorie Myers MD LAB BLOOD ORDERABLES Final Resul t [facility] [address] [place] [address] * (ABNORMAL) Basic Metabolic Panel, Plasma (04/30/2025 3:19 AM EDT) Glucose, Plasma 254(H) 74 - 99 mg/dL 04/30/2025 3:56 AM EDT [facility] BUN, Plasma 11 7 - 21 mg/dL 04/30/2025 3:56 AM EDT [facility] Creatinine, Plasma 0.77 0.70 - 1.20 mg/dL 04/30/2025 3:56 AM EDT [facility] BUN/Creatinine Ratio 14 04/30/2025 3:56 AM EDT [facility] Sodium, Plasma 137 136 - 145 mmol/L 04/30/2025 3:56 AM EDT [facility] Potassium, Plasma 3.3(L) 3.6 - 4.9 mmol/L 04/30/2025 3:56 AM EDT [facility] Chloride, Plasma 91(L) 97 - 107 mmol/L 04/30/2025 3:56 AM EDT [facility] CO2, Plasma 36(H) 22 - 29 mmol/L 04/30/2025 3:56 AM EDT [facility] Anion Gap 10 6 - 16 mmol/L 04/30/2025 3:56 AM EDT [facility] Total Calcium, Plasma 8.7(L) 8.9 - 10.2 mg/dL 04/30/2025 3:56 AM EDT [facility] eGFRcr 111.1 mL/min/1.7 3m*2 04/30/2025 3:56 AM EDT [facility] Comment:Reported eGFRcr in m L/min/1.73m2 is based the CKD-EPI 2020 equation that does not use a race coefficient. Blood Venous blood specimen / Unknown Venipuncture / Unknown 04/30/2025 3:19 AM EDT 04/30/2025 3:26 AM EDT us Marjorie Myers MD LAB BLOOD ORDERABLES Final Resul t [facility] [address] [place] [address] * (ABNORMAL) Magnesium, Plasma (04/30/2025 3:19 AM EDT) Magnesium, Plasma 1.5(L) 1.9 - 2.4 mg/dL 04/30/2025 3:56 AM EDT [facility] Blood Venous blood specimen / Unknown Venipuncture / Unknown 04/30/2025 3:19 AM EDT 04/30/2025 3:26 AM EDT us Marjorie Myers MD LAB BLOOD ORDERABLES Final Resul t Performing Organization Address City/[facility]/ZIP Co de Phone Number [facility] [address] [place] [address] * Phosphorus, Plasma (04/30/2025 3:19 AM EDT) Pathologist [facility] Phosphorus, Plasma 2.7 2.5 - 4.5 mg/dL 04/30/2025 3:56 AM EDT [facility] Blood Venous blood specimen / Unknown Venipuncture / Unknown 04/30/2025 3:19 AM EDT 04/30/2025 3:26 AM EDT us Marjorie Myers MD LAB BLOOD ORDERABLES Final Resul t Performing Organization Address [facility] de Phone Number [facility] [address] [place] [address] * (ABNORMAL) POCT glucose meter (04/29/2025 7:38 PM EDT) Pathologist [facility] POCT Glucose 191(H) 74 - 99 [...] 04/29/2025 9:20 PM EDT [facility] Hydraulic Lift Operator ID [email or web address] V 025 9:20 PM EDT [facility] Device ID [id number] 04/29/2025 9:20 PM EDT [facility] Specimen Type POC Capillary 04/29/2025 9:20 PM EDT [facility] Blood Capillary blood specimen / Unknown 04/29/2025 7:38 PM EDT 04/29/2025 9:20 PM EDT Marjorie Myers MD LAB POINT OF CARE TE ST DOCKED DEVICE UNSOLICITED RESULTS Final Result Performing Organization Address City/[facility] Co de Phone Number [facility] [address] [place] [address] * (ABNORMAL) POCT glucose meter (04/29/2025 5:21 [...] Comment 04/29/2025 5:23 PM EDT [facility] Hydraulic Lift Operator ID Rocio Dozier 04/29/20 5:23 PM EDT [facility] Device ID [id number] 04/29/2025 5:23 PM EDT [facility] Specimen Type POC Capillary 04/29/2025 5:23 PM EDT [facility] Blood Capillary blood specimen / Unknown 04/29/2025 5:21 PM EDT 04/29/2025 5:23 PM EDT Marjorie Myers MD LAB POINT OF CARE TE ST DOCKED DEVICE UNSOLICITED RESULTS Final Result Performing Organization Address City/[facility] Co de Phone Number [facility] [address] [place] [address] * (ABNORMAL) POCT glucose meter (04/29/2025 11:15 [...] Comment 04/29/2025 11:17 AM EDT [facility] Hydraulic Lift Operator ID Rocio Dozier 04/29/20 11:17 AM EDT [facility] Device ID [id number] 04/29/2025 11:17 AM EDT [facility] Specimen Type POC Capillary 04/29/2025 11:17 AM EDT [facility] Blood Capillary blood specimen / Unknown 04/29/2025 11:15 AM EDT 04/29/2025 11:17 AM EDT Marjorie Myers MD LAB POINT OF CARE TE ST DOCKED DEVICE UNSOLICITED RESULTS Final Result Performing Organization Address City/[facility]/ZIP Co de Phone Number [facility] [address] [place] [address] * (ABNORMAL) POCT glucose meter (04/29/2025 7:13 AM EDT) POCT Glucose 269(H) 74 - 99 mg/dL 04/29/2025 7:14 AM EDT [facility] Comment:Accuracy of [...] Comment 04/29/2025 7:14 AM EDT [facility] Hydraulic Lift Operator ID Rocio Dozier 04/29/20 7:14 AM EDT [facility] Device ID [id number] 04/29/2025 7:14 AM EDT [facility] Specimen Type POC Capillary 04/29/2025 7:14 AM EDT [facility] Blood Capillary blood specimen / Unknown 04/29/2025 7:13 AM EDT 04/29/2025 7:14 AM EDT us Marjorie Myers MD LAB POINT OF CARE TE ST DOCKED DEVICE UNSOLICITED RESULTS Final Result Performing Organization Address City/[facility]/ZIP Co de Phone Number [facility] [address] [place] [address] * Folate (04/29/2025 3:04 AM EDT) Folate, Serum 10.5 >4.6 ng/mL 04/29/2025 4:05 AM EDT [facility] Blood Venous blood specimen / Unknown Venipuncture / Unknown 04/29/2025 3:04 AM EDT 04/29/2025 3:20 AM EDT us Sy De La Fuente APRN, DNP LAB BLOOD ORDERABLES Fin al Result Performing Organization Address City/[facility] Co de Phone Number [facility] [address] [place] [address] * Vitamin B12 (04/29/2025 3:04 AM EDT) Vitamin B12, Serum 338 210 - 1,033 pg/mL 04/29/2025 4:06 AM EDT [facility] Blood Venous blood specimen / Unknown Venipuncture / Unknown 04/29/2025 3:04 AM EDT 04/29/2025 3:20 AM EDT us Sy De La Fuente APRN, DNP LAB BLOOD ORDERABLES Fin al Result Performing Organization Address City/[facility] Co de Phone Number [facility] [address] [place] [address] * (ABNORMAL) Iron & Total Iron Binding Capacity, Plasma (Includes Transferrin) (04/29/2025 3:04 AM EDT) Iron, Plasma 36(L) 50 - 170 ug/dL 04/29/2025 3:55 AM EDT [facility] Transferrin, Plasma 197(L) 200 - 360 mg/dL 04/29/2025 3:55 AM EDT [facility] Total Iron Binding Capacity, Plasma 246 240 - 450 ug/mL 04/29/2025 3:55 AM EDT [facility] Transferrin Saturation 15 14 - 50 % 04/29/2025 3:55 AM EDT [facility] Blood Venous blood specimen / Unknown Venipuncture / Unknown 04/29/2025 3:04 AM EDT 04/29/2025 3:19 AM EDT Sy De La Fuente ACCOUNTING FILE CLERK, DNP LAB BLOOD ORDERABLES Fin al Result Performing Organization Address [facility] Co de Phone Number [facility] [address] [place] [address] * Ferritin (04/29/2025 3:04 AM EDT) Ferritin, Serum 40 20 - 400 ng/mL 04/29/2025 4:06 AM EDT [facility] Blood Venous blood specimen / Unknown Venipuncture / Unknown 04/29/2025 3:04 AM EDT 04/29/2025 3:20 AM EDT Sy De La Fuente APRN, DNP LAB BLOOD ORDERABLES Fin al Result Performing Organization Address [facility] de Phone Number [facility] [address] [place] [address] * Cortisol (04/29/2025 3:04 AM EDT) Pathologist [facility] Cortisol 2.80 Before 10am: 3.7 - 19.4. After 5pm: 2.9 - 17.3 ug/dL 04/29/2025 4:22 AM EDT [facility] Comment:Testing performed on Matt Patient Support Partner, standardized against LONG-TERM Reference Standard concentration values assigned by LC-MS/MS and verified by BCR 192 and BCR 193 certified reference materials. Blood Venous blood specimen / Unknown Venipuncture / Unknown 04/29/2025 3:04 AM EDT 04/29/2025 3:19 AM EDT us Sy De La Fuente APRN, DNP LAB REF LAB BLOOD AND FL UID ORD Final Result Performing Organization Address [facility] Co de Phone Number [facility] [address] [place] [address] * TSH (04/29/2025 3:04 AM EDT) Thyroid Stimulating Hormone, Plasma 1.58 0.40 - 4.20 uIU/mL 04/29/2025 3:55 AM EDT [facility] Blood Venous blood specimen / Unknown Venipuncture / Unknown 04/29/2025 3:04 AM EDT 04/29/2025 3:19 AM EDT us Sy De La Fuente ADALGISA, DNP LAB BLOOD ORDERABLES Fin al Result Performing Organization Address [facility] de Phone Number [facility] [address] [place] [address] * (ABNORMAL) Hemoglobin A1c (04/29/2025 3:04 AM EDT) Hemoglobin A1c 8.9(H) <5.7 % 04/29/2025 9:40 AM EDT [facility] Blood Venous blood specimen / Unknown Venipuncture / Unknown 04/29/2025 3:04 AM EDT 04/29/2025 3:19 AM EDT Narrative [facility] - 04/29/2025 9:40 AM EDT HA1C Interpretive Data: Diagnosis of Diabetes: Diabetic > or = 6.5% Pre-diabetic 5.7 to 6.4% Non-diabetic < or = 5.6% Glycemic Targets for Type I and Type II Diabetics: Non- Adults <7.0% Adults <6.0% Children and Adolescents <7.5% Source: [place] [employer]. Standards of medical care in diabetes,2017. Diabetes Care.2017:40 (suppl 1):S1-S135. Sy Josafat Leisa DIANA, DENISE LAB BLOOD ORDERABLES Fin al Result Performing Organization Address City/[facility] de Phone Number [facility] [address] [place] [address] * Phosphorus (04/29/2025 3:04 AM EDT) Phosphorus, Plasma 3.6 2.5 - 4.5 mg/dL 04/29/2025 3:55 AM EDT [facility] Blood Venous blood specimen / Unknown Venipuncture / Unknown 04/29/2025 3:04 AM EDT 04/29/2025 3:19 AM EDT us Dirk A Quaker ACCOUNTING FILE CLERK, DNP LAB BLOOD ORDERABLES Fin al Result Performing Organization Address City/[facility]/ZIP Co de Phone Number [facility] [address] [place] [address] * (ABNORMAL) Magnesium, Plasma (04/29/2025 3:04 AM EDT) Magnesium, Plasma 1.7(L) 1.9 - 2.4 mg/dL 04/29/2025 3:55 AM EDT [facility] Blood Venous blood specimen / Unknown Venipuncture / Unknown 04/29/2025 3:04 AM EDT 04/29/2025 3:19 AM EDT us Sy De La Fuente APRN, DNP LAB BLOOD ORDERABLES Fin al Result Performing Organization Address [facility]/ZIP Co de Phone Number [facility] [address] [place] [address] * (ABNORMAL) Comprehensive metabolic panel (04/29/2025 3:04 AM EDT) Glucose, Plasma 219(H) 74 - 99 mg/dL 04/29/2025 3:55 AM EDT [facility] BUN, Plasma 9 7 - 21 mg/dL 04/29/2025 3:55 AM EDT [facility] Creatinine, Plasma 0.94 0.70 - 1.20 mg/dL 04/29/2025 3:55 AM EDT [facility] BUN/Creatinine Ratio 04/29/2025 3:55 AM EDT [facility] Sodium, Plasma 137 136 - 145 mmol/L 04/29/2025 3:55 AM EDT [facility] Potassium, Plasma 3.1(L) 3.6 - 4.9 mmol/L 04/29/2025 3:55 AM EDT [facility] Chloride, Plasma 92(L) 97 - 107 mmol/L 04/29/2025 3:55 AM EDT [facility] CO2, Plasma 38(H) 22 - 29 mmol/L 04/29/2025 3:55 AM EDT [facility] Anion Gap 7 6 - 16 mmol/L 04/29/2025 3:55 AM EDT [facility] Total Calcium, Plasma 8.6(L) 8.9 - 10.2 mg/dL 04/29/2025 3:55 AM EDT [facility] Total Protein 7.4 6.3 - 7.9 g/dL 04/29/2025 3:55 AM EDT [facility] Albumin, Plasma 3.3(L) 3.5 - 5.2 g/dL 04/29/2025 3:55 AM EDT [facility] AST, Plasma 18 10 - 50 U/L 04/29/2025 3:55 AM EDT [facility] ALT, Plasma 11 10 - 50 U/L 04/29/2025 3:55 AM EDT [facility] Alkaline Phosphatase, Plasma 55 40 - 115 U/L 04/29/2025 3:55 AM EDT [facility] Total Bilirubin, Plasma 0.8 0.2 - 1.1 mg/dL 04/29/2025 3:55 AM EDT [facility] eGFRcr 100.6 mL/min/1.7 3m*2 04/29/2025 3:55 AM EDT [facility] Comment:Reported eGFRcr in m L/min/1.73m2 is based the CKD-EPI 2020 equation that does not use a race coefficient. Blood Venous blood specimen / Unknown Venipuncture / Unknown 04/29/2025 3:04 AM EDT 04/29/2025 3:19 AM EDT us Sy De La Fuente ACCOUNTING FILE CLERK, DNP LAB BLOOD ORDERABLES Fin al Result [facility] [address] [place] [address] * (ABNORMAL) CBC and Differential (04/29/2025 3:04 AM EDT) WBC Count 6.68 3.70 - 10.30 10*3/uL LAB HEMATOLOGY METHOD 04/29/2025 3:16 AM EDT [facility] RBC Count 4.21(L) 4.60 - 6.10 10*6/uL LAB HEMATOLOGY METHOD 04/29/2025 3:16 AM EDT [facility] HGB 9.4(L) 13.7 - 17.5 g/dL LAB HEMATOLOGY METHOD 04/29/2025 3:16 AM EDT [facility] HCT 32.0(L) 40.0 - 51.0 % LAB HEMATOLOGY METHOD 04/29/2025 3:16 AM EDT [facility] Platelet Count 249 155 - 369 10*3/uL LAB HEMATOLOGY METHOD 04/29/2025 3:16 AM EDT [facility] MCV 76(L) 79 - 98 fL LAB HEMATOLOGY METHOD 04/29/2025 3:16 AM EDT [facility] MCH 22.3(L) 26.0 - 32.0 pg LAB HEMATOLOGY METHOD 04/29/2025 3:16 AM EDT [facility] MCHC 29.4(L) 30.7 - 35.5 g/dL LAB HEMATOLOGY METHOD 04/29/2025 3:16 AM EDT [facility] RDW 19.6(H) 11.5 - 14.5 % LAB HEMATOLOGY METHOD 04/29/2025 3:16 AM EDT [facility] MPV 8.4(L) 8.8 - 12.5 fL LAB HEMATOLOGY METHOD 04/29/2025 3:16 AM EDT [facility] nRBC 0.0 <=0.0 per 100 WBCs LAB HEMATOLOGY METHOD 04/29/2025 3:16 AM EDT [facility] Differential Type Automated LAB HEMATOLOGY METHOD 04/29/2025 3:16 AM EDT [facility] Neutrophils % 75 % LAB HEMATOLOGY METHOD 04/29/2025 3:16 AM EDT [facility] Lymphocytes % 11 % LAB HEMATOLOGY METHOD 04/29/2025 3:16 AM EDT [facility] Monocytes % 9 % LAB HEMATOLOGY METHOD 04/29/2025 3:16 AM EDT [facility] Eosinophils % 4 % LAB HEMATOLOGY METHOD 04/29/2025 3:16 AM EDT [facility] Basophils % 0 % LAB HEMATOLOGY METHOD 04/29/2025 3:16 AM EDT [facility] Immature Granulocytes % 1 % LAB HEMATOLOGY METHOD 04/29/2025 3:16 AM EDT [facility] Neutrophils Absolute 5.01 1.60 - 6.10 10*3/uL LAB HEMATOLOGY METHOD 04/29/2025 3:16 AM EDT [facility] Lymphocytes Absolute 0.75(L) 1.20 - 3.90 10*3/uL LAB HEMATOLOGY METHOD 04/29/2025 3:16 AM EDT [facility] Monocytes Absolute 0.59 0.30 - 0.90 10*3/uL LAB HEMATOLOGY METHOD 04/29/2025 3:16 AM EDT [facility] Eosinophils Absolute 0.26 0.00 - 0.50 10*3/uL LAB HEMATOLOGY METHOD 04/29/2025 3:16 AM EDT [facility] Basophils Absolute 0.03 0.00 - 0.10 10*3/uL LAB HEMATOLOGY METHOD 04/29/2025 3:16 AM EDT [facility] Immature Granulocytes Absolute 0.04 0.00 - 0.06 10*3/uL LAB HEMATOLOGY METHOD 04/29/2025 3:16 AM EDT [facility] Blood Venous blood specimen / Unknown Venipuncture / Unknown 04/29/2025 3:04 AM EDT 04/29/2025 3:13 AM EDT Narrative [facility] - 04/29/2025 3:16 AM EDT Therapeutic decision making should be based on absolute values, rather than percentages. Sy De La Fuente ACCOUNTING FILE CLERK, DNP LAB BLOOD ORDERABLES Fin al Result [facility] [address] [place] [address] * (ABNORMAL) POCT glucose meter (04/28/2025 9:06 PM EDT) [facility] POCT Glucose 212(H) 74 - 99 mg/dL 04/28/2025 9:08 PM EDT [facility] Comment:Accuracy of a glucos e result [...] for testing. Comment 04/28/2025 9:08 PM EDT [facility] Hydraulic Lift Operator ID Frankie Poole 04/28/2025 9:08 PM EDT [facility] Device ID [id number] 04/28/2025 9:08 PM EDT [facility] Specimen Type POC Capillary 04/28/2025 9:08 PM EDT [facility] Blood Capillary blood specimen / Unknown 04/28/2025 9:06 PM EDT 04/28/2025 9:08 PM EDT Marjorie Myers MD LAB POINT OF CARE TE ST DOCKED DEVICE UNSOLICITED RESULTS Final Result Performing Organization Address City/[facility]/ZIP Co de Phone Number [facility] [address] [place] [address] * (ABNORMAL) POCT glucose meter (04/28/2025 5:34 PM EDT) [facility] POCT Glucose 213(H) 74 - 99 [...] 04/28/2025 5:38 PM EDT [facility] Hydraulic Lift Operator ID Ailyn Finch 5:38 PM EDT [facility]ALTH[facility]ARE [facility] Device ID [id number] 04/28/2025 5:38 PM EDT [facility] Specimen Type POC Capillary 04/28/2025 5:38 PM EDT [facility] Blood Capillary blood specimen / Unknown 04/28/2025 5:34 PM EDT 04/28/2025 5:38 PM EDT Marjorie Myers MD LAB POINT OF CARE TE ST DOCKED DEVICE UNSOLICITED RESULTS Final Result Performing Organization Address City/[facility]/ZIP Co de Phone Number [facility] [address] [place] [address] * (ABNORMAL) POCT glucose meter (04/28/2025 3:51 [...] Comment 04/28/2025 3:54 PM EDT [facility] Hydraulic Lift Operator ID Ailyn Finch 3:54 PM EDT [facility] Device ID [id number] 04/28/2025 3:54 PM EDT [facility] Specimen Type POC Capillary 04/28/2025 3:54 PM EDT [facility] Blood Capillary blood specimen / Unknown 04/28/2025 3:51 PM EDT 04/28/2025 3:54 PM EDT Marjorie Myers MD LAB POINT OF CARE TE ST DOCKED DEVICE UNSOLICITED RESULTS Final Result Performing Organization Address City/State/[facility] Co de Phone Number [facility] [address] [place] [address] * VAS Ankle Brachial Index - GABBI [...] are demonstrated at the levels of the EXAMINER OF CURRENCY and DPA. Segmental pressures are within normal limits with a EXAMINER OF CURRENCY GABBI of 1.1 (172 mmHg) and a DPA GABBI of 1.0 (149 mmHg). Digit pressures are of 122 mmHg. Left: Multiphasic waveforms are demonstrated at the levels of the EXAMINER OF CURRENCY and DPA. Segmental pressures are within normal limits with a EXAMINER OF CURRENCY GABBI of 1.1 (164 mmHg) and a DPA GABBI of 1.0 (153 mmHg). Digit pressures are of 151 mmHg. Procedure Note Chris Schaefer MD - 04/28/2025 CLINICAL INDICATION: Diabetic foot ulcer TECHNIQUE: Non-invasive, continuous wave Doppler exam with segmental pressures andspectral analysis of the lower extremity was performed. COMPARISON: None. FINDINGS: Right: Multiphasic waveforms are demonstrated at the levels of the EXAMINER OF CURRENCY andDPA. Segmental pressures are within normal limits with a EXAMINER OF CURRENCY GABBI of 1.1(172 mmHg) and a DPA GABBI of 1.0 (149 mmHg). Digit pressures are of 122mmHg. Left: Multiphasic waveforms are demonstrated at the levels of the EXAMINER OF CURRENCY andDPA. Segmental pressures are within normal limits with a EXAMINER OF CURRENCY GABBI of 1.1(164 mmHg) and a DPA [...] Drug Resistance Test (04/28/2025 1:44 PM EDT) [facility] Culture No Multi Drug Resistant Organisms Isolated 04/29/2025 2:32 PM EDT [facility] Swab (Nares and Saba Rectal) Non-blood Collection / Unknown 04/28/2025 1:44 PM EDT 04/28/2025 2:15 PM EDT Narrative [facility] - 04/29/2025 2:32 PM EDT This test was developed and its performance characteristics determined by the [facility]. Although the media is FDA-approved, it is not FDA-approved for all specimen types submitted. The FDA has determined that such clearance or approval is not necessary. This test is used for surveillance purposes. It should not be regarded as investigational or for research. The [facility] is certified under the Clinical Laboratory Improvement Amendments of 1988 (CLIA-88) as qualified to perform high complexity clinical laboratory testing. Sy De La Fuente APRN, DNP LAB MICROBIOLOGY - GENER AL ORDERABLES Final Result [facility] [address] [place] [address] * (ABNORMAL) POCT glucose meter (04/28/2025 12:52 PM EDT) [facility] POCT Glucose 271(H) 74 - 99 mg/dL [...] for testing. Comment 04/28/2025 12:56 PM EDT [facility] Hydraulic Lift Operator ID Ailyn Finch 12:56 PM EDT [facility] Device ID [id number] 04/28/2025 12:56 PM EDT [facility] Specimen Type POC Capillary 04/28/2025 12:56 PM EDT [facility] Blood Capillary blood specimen / Unknown 04/28/2025 12:52 PM EDT 04/28/2025 12:56 PM EDT Marjorie Myers MD LAB POINT OF CARE TE ST DOCKED DEVICE UNSOLICITED RESULTS Final Result [facility] [address] [place] [address] * (ABNORMAL) POCT glucose meter (04/28/2025 11:39 AM EDT) Pathologist [facility] POCT Glucose 271(H) 74 - 99 [...] Comment 04/28/2025 11:44 AM EDT [facility] Hydraulic Lift Operator ID Ailyn Finch 11:44 AM EDT [facility] Device ID [id number] 04/28/2025 11:44 AM EDT [facility] Specimen Type POC Capillary 04/28/2025 11:44 AM EDT [facility] Blood Capillary blood specimen / Unknown 04/28/2025 11:39 AM EDT 04/28/2025 11:44 AM EDT Marjorie Myers MD LAB POINT OF CARE TE ST DOCKED DEVICE UNSOLICITED RESULTS Final Result [facility] [address] [place] [address] * Lavender Top (04/28/2025 8:13 AM EDT) Pathologist [facility] Extra Hold for add-ons 04/28/2025 11:01 AM EDT [facility] Comment:Auto resulted. Blood Venous blood specimen / Unknown 04/28/2025 8:13 AM EDT 04/28/2025 8:19 AM EDT us Marjorie Myers MD LAB BLOOD ORDERABLES Final Resul t [facility] [address] [place] [address] * Light Green Top (04/28/2025 8:13 AM EDT) Extra Hold for add-ons 04/28/2025 11:01 AM EDT [facility] Comment:Auto resulted. Blood Venous blood specimen / Unknown 04/28/2025 8:13 AM EDT 04/28/2025 8:19 AM EDT us Marjorie Myers MD LAB BLOOD ORDERABLES Final Resul t Performing Organization Address City/[facility]/ZIP Co de Phone Number [facility] [address] [place] [address] * APTT (04/28/2025 8:13 AM EDT) aPTT 32 25 - 35 sec 04/28/2025 8:33 AM EDT [facility] Blood Venous blood specimen / Unknown Venipuncture / Unknown 04/28/2025 8:13 AM EDT 04/28/2025 8:18 AM EDT us Sy De La Fuente ACCOUNTING FILE CLERK, DNP LAB BLOOD ORDERABLES Fin al Result Performing Organization Address City/[facility]/ZIP Co de Phone Number [facility] [address] [place] [address] * (ABNORMAL) PT/INR (04/28/2025 8:13 AM EDT) Prothrombin Time 17.5(H) 12.0 - 14.3 sec 04/28/2025 8:33 AM EDT [facility] INR 1.4(H) 0.9 - 1.1 04/28/2025 8:33 AM EDT [facility] Blood Venous blood specimen / Unknown Venipuncture / Unknown 04/28/2025 8:13 AM EDT 04/28/2025 8:18 AM EDT Narrative [facility] - 04/28/2025 8:33 AM EDT OPTIMAL INR RANGES FOR PATIENT ON ORAL ANTICOAGULANT THERAPY Prevention of venous thromboembolism INR 2.0 to 3.0 In patients with heart disease: Atrial fibrillation INR 2.0 to 3.0 Valvular heart disease INR 2.0 to 3.0 Tissue heart valves INR 2.0 to 3.0 Mechanical prosthetic valves INR 2.5 to 3.5 Prevention of recurrent W[place] INR 2.5 to 3.5 Sy De La Fuente APRN, DENISE LAB BLOOD ORDERABLES Fin al Result [facility] [address] [place] [address] * ECG Adult (04/28/2025 7:20 AM EDT) EKG DIAGNOSIS CLASS Abnormal MUSE ECG Ventricular Rate 90 BPM MUSE ECG Atrial Rate 90 BPM MUSE ECG SD Interval 206 ms MUSE ECG QRSD Interval 146 ms MUSE ECG QT Interval 450 ms MUSE ECG QTC Interval 550 ms MUSE ECG P Diamond 69 degrees MUSE ECG R Diamond -32 degrees MUSE ECG T Wave Diamond 35 degrees MUSE ECG Diagnosis Baseline Artifact [...] APRN, DENISE ECG ORDERABLES Final Re sult MUSE ECG * (ABNORMAL) POCT glucose meter [...] Comment 04/28/2025 7:21 AM EDT [facility] Hydraulic Lift Operator ID Ailyn Finch 7:21 AM EDT [facility] Device ID [id number] 04/28/2025 7:21 AM EDT [facility] Specimen Type POC Capillary 04/28/2025 7:21 AM EDT [facility] Blood Capillary blood specimen / Unknown 04/28/2025 7:17 AM EDT 04/28/2025 7:21 AM EDT Greg Lee MD LAB POINT OF CARE TE ST DOCKED DEVICE UNSOLICITED RESULTS Final Result [facility] [address] [place] [address] * CT Foot Right w IV Contrast [...] MD on 04/28/2025 5:27 AM us Jessa Cesar MD IMG CT PROCEDURES Final Resu lt * XR Foot Right 3+ Views (04/27/2025 [...] MD on 04/27/2025 11:40 PM us Jessa Cesar MD IMG XR PROCEDURES Final Resu lt * Type and screen (04/27/2025 10:16 PM EDT) ABO/Rh O Positive 04/27/2025 10:23 PM EDT [facility] Antibody Screen Negative 04/27/2025 10:23 PM EDT [facility] Specimen Expiration 04/30/2025 23:59 04/27/2025 10:23 PM EDT [facility] Blood Venous blood specimen / Unknown Venipuncture / Unknown 04/27/2025 10:16 PM EDT 04/27/2025 10:23 PM EDT us Jessa Cesar MD LAB BLOOD BANK TEST ORDERABL ES Final Result BLOOD BANK [address] [place] [address], * Blood Culture (Aerobic/Anaerobet Set) (04/27/2025 10:16 PM EDT) Culture No growth at day 5 05/03/2025 12:01 AM EDT [facility] Blood Venous blood specimen / Unknown Venipuncture / Unknown 04/27/2025 10:16 PM EDT 04/27/2025 10:53 PM EDT us Jessa Cesar MD LAB MICROBIOLOGY - GENERAL O RDERABLES Final Result [facility] [address] [place] [address] * Blood Culture (Aerobic/Anaerobet Set) (04/27/2025 10:16 PM EDT) Pathologist [facility] Culture No growth at day 5 05/03/2025 12:01 AM EDT [facility] Blood Venous blood specimen / Unknown Venipuncture / Unknown 04/27/2025 10:16 PM EDT 04/27/2025 10:53 PM EDT us Jessa Cesar MD LAB MICROBIOLOGY - GENERAL O RDERABLES Final Result Performing Organization Address [facility]/ZIP Co de Phone Number [facility] [address] [place] [address] * (ABNORMAL) Blood gas, venous (04/27/2025 10:16 PM EDT) pH, Venous 7.47(H) 7.32 - 7.43 LAB HEMATOLOGY METHOD 04/27/2025 10:21 PM EDT [facility] pCO2, Venous 50 40 - 55 mmHg LAB HEMATOLOGY METHOD 04/27/2025 10:21 PM EDT [facility] pO2, Venous 30 25 - 40 mmHg LAB HEMATOLOGY METHOD 04/27/2025 10:21 PM EDT [facility] SO2, Measured, Venous 52(L) 65 - 80 % LAB HEMATOLOGY METHOD 04/27/2025 10:21 PM EDT [facility] Base Excess, Venous 11.6(H) -2.0 - 3.0 mmol/L LAB HEMATOLOGY METHOD 04/27/2025 10:21 PM EDT [facility] Bicarbonate, Calculated, Venous 37(H) 22 - 26 mmol/L LAB HEMATOLOGY METHOD 04/27/2025 10:21 PM EDT [facility] Hematocrit, Whole Blood 30.1(L) 40.0 - 51.0 % LAB HEMATOLOGY METHOD 04/27/2025 10:21 PM EDT [facility] Sodium, Whole Blood 136 136 - 145 mmol/L LAB HEMATOLOGY METHOD 04/27/2025 10:21 PM EDT [facility] Potassium, Whole Blood 2.8(L) 3.6 - 4.9 mmol/L LAB HEMATOLOGY METHOD 04/27/2025 10:21 PM EDT [facility] Chloride, Whole Blood 88(L) 97 - 107 mmol/L LAB HEMATOLOGY METHOD 04/27/2025 10:21 PM EDT [facility] Glucose, Whole Blood 131(H) 74 - 99 mg/dL LAB HEMATOLOGY METHOD 04/27/2025 10:21 PM EDT [facility] Lactate, Venous, Whole Blood 2.0 0.5 - 2.2 mmol/L LAB HEMATOLOGY METHOD 04/27/2025 10:21 PM EDT [facility] Ionized Calcium, Whole Blood 4.2(L) 4.6 - 5.1 mg/dL LAB HEMATOLOGY METHOD 04/27/2025 10:21 PM EDT [facility] Blood Venous blood specimen / Unknown Venipuncture / Unknown 04/27/2025 10:16 PM EDT 04/27/2025 10:20 PM EDT us Jessa Cesar MD LAB BLOOD ORDERABLES Final R esult Performing Organization Address City/[facility]/ZIP Co de Phone Number [facility] [address] [place] [address] * Creatine Kinase, Total, Plasma (04/27/2025 9:37 PM EDT) Creatine Kinase, Plasma 71 49 - 320 U/L 04/28/2025 8:36 AM EDT [facility] Blood Venous blood specimen / Unknown Venipuncture / Unknown 04/27/2025 9:37 PM EDT 04/27/2025 9:40 PM EDT us Sy De La Fuente ACCOUNTING FILE CLERK, DNP LAB BLOOD ORDERABLES Fin al Result Performing Organization Address City/[facility]/ZIP Co de Phone Number [facility] [address] [place] [address] * (ABNORMAL) Procalcitonin (04/27/2025 9:37 PM EDT) Procalcitonin, Plasma 0.11(H) <0.09 ng/mL 04/28/2025 8:36 AM EDT [facility] Blood Venous blood specimen / Unknown Venipuncture / Unknown 04/27/2025 9:37 PM EDT 04/27/2025 9:40 PM EDT Narrative [facility] - 04/28/2025 8:36 AM EDT [...] predict 28 day mortality risk. Please consult [email or web address] for more information. Test performed at [facility]. us Sy De La Fuente APRN, DENISE LAB BLOOD ORDERABLES Fin al Result Performing Organization Address City/[facility]/ZIP Co de Phone Number [facility] [address] [place] [address] * (ABNORMAL) Sed rate, automated (04/27/2025 9:37 PM EDT) Sedimentation Rate >111(H) <15 mm/hr 2024 11:10 PM EDT [facility] Blood Venous blood specimen / Unknown Venipuncture / Unknown 04/27/2025 9:37 PM EDT 04/27/2025 9:40 PM EDT us Jessa Cesar MD LAB BLOOD ORDERABLES Final R esult [facility] [address] [place] [address] * (ABNORMAL) Magnesium (04/27/2025 9:37 PM EDT) Magnesium, Plasma 1.2(L) 1.9 - 2.4 mg/dL 04/27/2025 10:11 PM EDT [facility] Blood Venous blood specimen / Unknown Venipuncture / Unknown 04/27/2025 9:37 PM EDT 04/27/2025 9:40 PM EDT Jessa Cesar MD LAB BLOOD ORDERABLES Final R esult Performing Organization Address [facility] Co de Phone Number [facility] [address] [place] [address] * Beta-Hydroxybutyric Acid (04/27/2025 9:37 PM EDT) [facility] Beta-Hydroxybut yric Acid, Plasma 0.23 <=0.27 mmol/L 04/27/2025 10:56 PM EDT [facility] Blood Venous blood specimen / Unknown Venipuncture / Unknown 04/27/2025 9:37 PM EDT 04/27/2025 9:40 PM EDT Jessa Cesar MD LAB BLOOD ORDERABLES Final R esult Performing Organization Address [facility] [place] [address] * ED HIV 1/2 Antibody/Antigen Screen w/Reflex to HIV 1/2 Differentiation (04/27/2025 9:37 PM EDT) [facility] HIV 1 & 2 Antibody/Antigen Screen Non Reactive Non Reactive 04/27/2025 10:41 PM EDT [facility] Comment:Screening for HIV 1 & 2 antibodies, and P24 antigen is NONREACTIVE. No confirmatory testing is required. Blood Venous blood specimen / Unknown Venipuncture / Unknown 04/27/2025 9:37 PM EDT 04/27/2025 10:00 PM EDT Madhu Ritchie MD LAB BLOOD ORDERABLES Final Res ult Performing Organization Address [facility] Co de Phone Number [facility] [address] [place] [address] * Hepatitis C Antibody - ED (04/27/2025 9:37 PM EDT) Pathologist [facility] Hepatitis C Antibody Negative Negative 04/27/2025 10:41 PM EDT [facility] Blood Venous blood specimen / Unknown Venipuncture / Unknown 04/27/2025 9:37 PM EDT 04/27/2025 10:00 PM EDT Madhu Ritchie MD LAB BLOOD ORDERABLES Final Res ult Performing Organization Address [facility]/ZIP Co de Phone Number [facility] [address] [place] [address] * (ABNORMAL) C-reactive protein (04/27/2025 9:37 PM EDT) [facility] CRP, Plasma 82.6(H) <=8.0 mg/L 04/27/2025 10:03 PM EDT [facility] Blood Venous blood specimen / Unknown Venipuncture / Unknown 04/27/2025 9:37 PM EDT 04/27/2025 9:40 PM EDT Narrative [facility] - 04/27/2025 10:03 PM EDT This CRP test is appropriate for assessment of infection, systemic inflammation and/or tissue injury. To assess cardiovascular disease risk order high sensitivity CRP (CRPH). Madhu Ritchie MD LAB BLOOD ORDERABLES Final Res ult [facility] [address] [place] [address] * (ABNORMAL) CBC w/diff (04/27/2025 9:37 PM EDT) [facility] WBC Count 12.00(H) 3.70 - 10.30 10*3/uL LAB HEMATOLOGY METHOD 04/27/2025 9:43 PM EDT [facility] RBC Count 4.48(L) 4.60 - 6.10 10*6/uL LAB HEMATOLOGY METHOD 04/27/2025 9:43 PM EDT [facility] HGB 10.4(L) 13.7 - 17.5 g/dL LAB HEMATOLOGY METHOD 04/27/2025 9:43 PM EDT [facility] HCT 33.3(L) 40.0 - 51.0 % LAB HEMATOLOGY METHOD 04/27/2025 9:43 PM EDT [facility] Platelet Count 282 155 - 369 10*3/uL LAB HEMATOLOGY METHOD 04/27/2025 9:43 PM EDT [facility] MCV 74(L) 79 - 98 fL LAB HEMATOLOGY METHOD 04/27/2025 9:43 PM EDT [facility] MCH 23.2(L) 26.0 - 32.0 pg LAB HEMATOLOGY METHOD 04/27/2025 9:43 PM EDT [facility] MCHC 31.2 30.7 - 35.5 g/dL LAB HEMATOLOGY METHOD 04/27/2025 9:43 PM EDT [facility] RDW 19.4(H) 11.5 - 14.5 % LAB HEMATOLOGY METHOD 04/27/2025 9:43 PM EDT [facility] MPV 8.3(L) 8.8 - 12.5 fL LAB HEMATOLOGY METHOD 04/27/2025 9:43 PM EDT [facility] nRBC 0.0 <=0.0 per 100 WBCs LAB HEMATOLOGY METHOD 04/27/2025 9:43 PM EDT [facility] Differential Type Automated LAB HEMATOLOGY METHOD 04/27/2025 9:43 PM EDT [facility] Neutrophils % 82 % LAB HEMATOLOGY METHOD 04/27/2025 9:43 PM EDT [facility] Lymphocytes % 9 % LAB HEMATOLOGY METHOD 04/27/2025 9:43 PM EDT [facility] Monocytes % 7 % LAB HEMATOLOGY METHOD 04/27/2025 9:43 PM EDT [facility] Eosinophils % 2 % LAB HEMATOLOGY METHOD 04/27/2025 9:43 PM EDT [facility] Basophils % 0 % LAB HEMATOLOGY METHOD 04/27/2025 9:43 PM EDT [facility] Immature Granulocytes % 0 % LAB HEMATOLOGY METHOD 04/27/2025 9:43 PM EDT [facility] Neutrophils Absolute 9.73(H) 1.60 - 6.10 10*3/uL LAB HEMATOLOGY METHOD 04/27/2025 9:43 PM EDT [facility] Lymphocytes Absolute 1.11(L) 1.20 - 3.90 10*3/uL LAB HEMATOLOGY METHOD 04/27/2025 9:43 PM EDT [facility] Monocytes Absolute 0.80 0.30 - 0.90 10*3/uL LAB HEMATOLOGY METHOD 04/27/2025 9:43 PM EDT [facility] Eosinophils Absolute 0.29 0.00 - 0.50 10*3/uL LAB HEMATOLOGY METHOD 04/27/2025 9:43 PM EDT [facility] Basophils Absolute 0.03 0.00 - 0.10 10*3/uL LAB HEMATOLOGY METHOD 04/27/2025 9:43 PM EDT [facility] Immature Granulocytes Absolute 0.04 0.00 - 0.06 10*3/uL LAB HEMATOLOGY METHOD 04/27/2025 9:43 PM EDT [facility] Blood Venous blood specimen / Unknown Venipuncture / Unknown 04/27/2025 9:37 PM EDT 04/27/2025 9:40 PM EDT Narrative [facility] - 04/27/2025 9:43 PM EDT Therapeutic decision making should be based on absolute values, rather than percentages. us Maduh Ritchie MD LAB BLOOD ORDERABLES Final Res ult [facility] [address] [place] [address] * (ABNORMAL) BMP (04/27/2025 9:37 PM EDT) Glucose, Plasma 135(H) 74 - 99 mg/dL 04/27/2025 10:03 PM EDT [facility] BUN, Plasma 8 7 - 21 mg/dL 04/27/2025 10:03 PM EDT [facility] Creatinine, Plasma 0.84 0.70 - 1.20 mg/dL 04/27/2025 10:03 PM EDT [facility] BUN/Creatinine Ratio 10 04/27/2025 10:03 PM EDT [facility] Sodium, Plasma 135(L) 136 - 145 mmol/L 04/27/2025 10:03 PM EDT [facility] Potassium, Plasma 3.3(L) 3.6 - 4.9 mmol/L 04/27/2025 10:03 PM EDT [facility] Chloride, Plasma 90(L) 97 - 107 mmol/L 04/27/2025 10:03 PM EDT [facility] CO2, Plasma 29 22 - 29 mmol/L 04/27/2025 10:03 PM EDT [facility] Anion Gap 16 6 - 16 mmol/L 04/27/2025 10:03 PM EDT [facility] Total Calcium, Plasma 9.0 8.9 - 10.2 mg/dL 04/27/2025 10:03 PM EDT [facility] eGFRcr 108.2 mL/min/1.7 3m*2 04/27/2025 10:03 PM EDT [facility] Comment:Reported eGFRcr in m L/min/1.73m2 is based the CKD-EPI 2020 equation that does not use a race coefficient. Blood Venous blood specimen / Unknown Venipuncture / Unknown 04/27/2025 9:37 PM EDT 04/27/2025 9:40 PM EDT us Madhu Ritchie MD LAB BLOOD ORDERABLES Final Res ult [facility] [address] [place] [address] documented in this encounter Visit Diagnoses Diagnosis [...] nightly (2099 & 030), First dose on Thu04/28/25 at 2100, Until [...] dose, On Thu04/27/25 at 2200, STAT New 04/27/2025 10:35 PM EDT 500 mL LORazepam [...] dose, On Thu05/12/25 at 0600, Routine New Bag 05/12/2025 5:28 AM EDT 4 g 2 5 mL/hr meropenem (Merrem) 1 g in sodium chloride 0.9% 100 mL IVPB (vial adapter required) 1 g, Intravenous, Once, 1 dose, On Thu04/28/25 at 0300, at 220 mL/hr, Administer over 30 Minutes, STAT New 04/28/2025 2:47 AM EDT 1 g 220 [...] at 0702, Until 04/29/25 at 0754, Routine, Moderate Severe Pain with [...] 0.25 mg Left Lower Abdomen sodium chloride (Yolo) 0.65 % nasal spray 1 spray 1 spray, Each Nostril, As needed, Starting on 05/06/25 at 1208, Until Thu05/09/25 at 0821, Routine, congestion Given 05/07/2025 3:52 AM EDT 1 spray sodium chloride (Yolo) 0.65 % nasal spray 1 spray 1 [...] Discontinued, Routine 0856 (Given - Provider: Deepthi Herman, LOLA) bisoprolol (Zebeta) tablet 10 mg 10 mg, Oral, Daily, First dose (after last modification) on Thu05/17/25 at 0900, Until Discontinued, Routine 0900 (Given - Provider: Deepthi Herman RN) 09 (Given - Provider: Kylee Gonzalez RN) bumetanide (Bumex) tablet 4 mg 4 mg, Oral, 3 times daily, First dose on Thu04/28/25 at 0900, Until Discontinued, Routine 0856 (Given - Provider: Deepthi Herman, LOLA)1626 (Given - Provider: Deepthi Herman, LOLA)1999 (Given - Provider: Ivan Slaughter RN) 900 (Given - Provider: Deepthi Heramn, LOLA)170 (Given - Provider: Deepthi Herman, LOLA)2003 (Given [...] Herman RN)1306 (Given - Provider: Deepthi Herman, RN)1755 (Given - Provider: Deepthi Herman RN) 0907 [...] parameters not met)2124 (Not Given - Provider: Iavn Slaughter RN - Reason: Order parameters not [...] 1732 (Given - Provider: Deepthi Herman, LOLA) 173 (Given - Provider: Deepthi Herman RN) insulin [...] 1733 (Given - Provider: Deepthi Herman RN) 173 (Given - Provider: Deepthi Herman RN) insulin [...] Herman RN) 0909 (Given - Provider: Kylee Gonzalez, LOLA - Comment: [facility]) insulin [...] Herman RN) 0909 (Given - Provider: Kylee Gonzalez, LOLA - Comment: [facility]) insulin regular (HumuLIN R U-500) [...] 0907 (Given - Provider: Kylee Gonzalez, LOLA) miconazole (Micotin) 2 % powder Topical, 2 times daily, First dose on Thu05/02/25 at 1345, Until Discontinued, Routine 0907 (Given - Provider: Deepthi Herman RN)2000 (Given - Provider: Ivan Slaughter, LOLA) 0905 (Given - Provider: Deepthi Herman, LOLA)2003 (Given - Provider: Ivan Slaughter, LOLA) 1107 (Not Given - Provider: Kylee Gonzalez RN - Reason: Hold for condition: must add comment - Comment: Pt to discharge) pantoprazole (Protonix) EC tablet 40 mg 40 mg, Oral, Daily before breakfast, First dose on Thu04/28/25 at 0835, Until Discontinued 0855 (Given - Provider: Deepthi Herman RN) 0901 (Given - Provider: Deepthi Herman RN) 0907 (Given - Provider: Kylee Gonzalez, LOLA - Comment: [facility]) perflutren lipid microspheres (Definity) injection 16.3 mg [...] Herman RN) 09 (Given - Provider: Deepthi Herman, LOLA) 09 (Given - Provider: Kylee Gonzalez, LOLA) venlafaxine XR (Effexor-XR) 24 hr capsule 150 mg 150 mg, Oral, Daily, First dose on Thu04/28/25 at 0900, Until Discontinued 0854 (Given - Provider: Deepthi Herman, LOLA) 09 (Given - Provider: Deepthi Herman, LOLA) 09 (Given - Provider: Kylee Gonzalez, LOLA) PRN Medication Order 05/16/2025 05/17/2025 05/18/2025 acetaminophen [...] at 0754, Until Thu05/18/25 at 1348, Routine, Moderate Severe Pain with CPOT score of 3 or greater OR FLACC PAINAD NPASS NRS [employer] Faces score of 4 or greater OR DVPRS NIPS score of 5 or greater, severe pain 0855 (Given - Provider: Deepthi Herman RN)1626 (Given - Provider: Deepthi N Thorn, RN)2224 (Given - Provider: Ivan Slaughter RN) 0902 (Given - Provider: Deepthi Herman, RN)1424 (Given - Provider: Deepthi Herman, RN)2228 (Given - Provider: Ivan Slaughter, LOLA) 0907 (Given - Provider: Kylee Gonzalez, LOLA) sodium chloride (Yolo) 0.65 % nasal spray 1 spray 1 [...] documented as of this encounter Care Teams Rough Rice Grader Relationship Specialty Start Date End Date Malcolm Hayward APRN [id number] PCP - General 09/21/23 documented as of this encounter
--- OUTSIDE RECORDS SUMMARY | 2025-06-22 13:40 | XMS_ITS | Encounter Summary ---
Author Organization [facility] Address [address] [id number] Care Team Providers Care Still Operator Brandy Name Role Phone Malcolm Hayward ADALGISA Primary Care Provider [phone] Reason for Visit * Reason Comments Post-op * Consultation (Routine) - Closed Specialty Diagnoses / Procedures Referred By Contact Referred To Contact Vascular Surgery / [facility] Diagnoses Diabetic foot ulcer with osteomyelitis Diane Guzamn MD [address] [place] [address] Phone: tel:[phone] fax:[phone] [facility] [address] [place] [address] Phone: tel: fax: Referral ID Status Reason Start Date Expiration Date V isits Requested Visits Authorized [id number] Closed Specialty Services Required 05/03/2025 11/02/2026 1 1 Encounter Details Date Type Department Care Team (Latest Contact Info) Description 06/22/2025 1:40 PM EST Office Visit [facility] [address] [place] [address] Mary Vicente MD [address] [facility] [address] [place] [address] QUINN (obstructive sleep apnea) (Primary Dx); Chronic obstructive pulmonary disease, unspecified COPD type (CMS/HCC); Dependence on supplemental oxygen; Dyspnea, unspecified type; Primary hypertension; Congestive heart failure, unspecified HF chronicity, unspecified heart failure type; Decreased pedal pulses; Palpitations; Atrial fibrillation with rapid ventricular response (CMS/HCC); Tachycardia; Morbid obesity (CMS/HCC); Uncontrolled type 2 diabetes mellitus with hyperglycemia, with long-term current use of insulin; Type 2 diabetes mellitus with diabetic peripheral angiopathy without gangrene, with long-term current use of insulin; Tobacco abuse counseling; S/P gastric sleeve procedure; Recurrent major depression resistant to treatment (CMS/HCC); Smoker unmotivated to quit Social History Tobacco Use Types Packs/Day Years [...] time in the past 12 m [employer] [place], were you homeless or living in a prison (including now)? No 04/28/2025 [facility] Utilities Answer Date Recorded In the past 12 months has e [employer], gas, oil, or water company threatened to [...] Sign Reading Time Taken Comments Blood Pressure 121/85 06/22/2025 1:32 PM EST Pulse 100 06/22/2025 1:32 PM EST Temperature 36.3 C (97.4 F) 06/22/2025 1:32 PM EST Respiratory Rate - - Oxygen Saturation 95% 06/22/2025 1:32 PM EST Inhaled Oxygen Concentration - - Weight 249 kg (548 lb 15.1 oz) 06/22/2025 1:32 P M EST Height 182.9 cm (6' 0.01 ) 06/22/2025 1:32 PM ES T Body Mass Index 74.43 06/22/2025 1:32 PM EST documented in this encounter Functional Status * BP Answer Date of Assessment Author 121/85 06/22/2025 1:32 PM EST Reese Waggoner A * Temp Answer Date of Assessment Author 97.4 06/22/2025 1:32 PM EST Reese Waggoner A * Pulse Answer Date of Assessment Author 100 06/22/2025 1:32 PM EST Reese Waggoner A * SpO2 Answer Date of Assessment Author 95 06/22/2025 1:32 PM EST Reese Waggoner A * Height Answer Date of Assessment Author 72.008 06/22/2025 1:32 PM EST Reese Waggoner A * Weight Answer Date of Assessment Author 8783.13 06/22/2025 1:32 PM EST Waggoner, Reese A * BMI (Calculated) Answer Date of Assessment Author 74.6 06/22/2025 1:32 PM EST Waggoner, Reese A * Percent Excess Weight Loss Answer Date of Assessment Author 0 06/22/2025 1:32 PM EST Waggoner, Reese A * Total Weight Change Percent Answer Date of Assessment Author 2222 06/22/2025 1:32 PM EST Waggonre, Reese A * Weight Change Since Preop Answer Date of Assessment Author 248.94 06/22/2025 1:32 PM EST Waggoner, Reese A * Initial Excess Weight Answer Date of Assessment Author -80.76 06/22/2025 1:32 PM EST Waggoner, Reese A * IBW in lbs (Bariatric) Answer Date of Assessment Author 178.05 06/22/2025 1:32 PM EST Waggoner, Reese A * Weight Change Since Last Visit Answer Date of Assessment Author 248.94 06/22/2025 1:32 PM EST Waggoner, Reese A * IBW in kg (Bariatric) Answer Date of Assessment Author 80.76 06/22/2025 1:32 PM EST Waggoner, Reese A * Percent of IBW Answer Date of Assessment Author 10,875.59 06/22/2025 1:32 PM EST Waggoner, Reese A * EBW (kg) Answer Date of Assessment Author 8,780.84 06/22/2025 1:32 PM EST Waggoner, Reese A * EBW (lbs) Answer Date of Assessment Author 8772 06/22/2025 1:32 PM EST Waggoner, Reese A * Weight Change 24 hrs Answer Date of Assessment Author -.5 06/22/2025 1:32 PM EST Waggoner, Reese A * BSA (Calculated - sq m) Answer Date of Assessment Author 3.56 06/22/2025 1:32 PM EST Waggoner, Reese A * BMI (Calculated) Answer Date of Assessment Author 74.43 06/22/2025 1:32 PM EST Waggoner, Reese A * BP Location Answer Date of Assessment Author Right arm 06/22/2025 1:32 PM EST Waggoner, Reese A * IBW/kg (Calculated) Male Answer Date of Assessment Author 77.62 06/22/2025 1:32 PM EST Waggoner, Reese A * IBW/kg (Calculated) Female Answer Date of Assessment Author 73.12 06/22/2025 1:32 PM EST Waggoner, Reese A * IBW/kg (Calculated) Answer Date of Assessment Author 77.62 06/22/2025 1:32 PM EST Waggoner, Reese A * Weight in (lb) to have BMI = 25 Answer Date of Assessment Author 184 06/22/2025 1:32 PM EST Waggoner, Reese A * BMI (Calculated) Answer Date of Assessment Author 74.6 06/22/2025 1:32 PM EST Waggoner, Reese A * Percent Excess Weight Loss Answer Date of Assessment Author 0 06/22/2025 1:32 PM EST Waggoner, Reese A * Weight Change Since Preop Answer Date of Assessment Author 249 06/22/2025 1:32 PM EST Waggoner, Reese A * Initial Excess Weight Answer Date of Assessment Author -80.76 06/22/2025 1:32 PM EST Waggoner, Reese A * IBW in kg (Bariatric) Answer Date of Assessment Author 80.76 06/22/2025 1:32 PM EST Waggoner, Reese A * IBW in lb (Bariatric) Answer Date of Assessment Author 178.05 06/22/2025 1:32 PM EST Waggoner, Reese A * Weight Change Since Last Visit Answer Date of Assessment Author 249 06/22/2025 1:32 PM EST Waggoner, Reese A * Percent of IBW Answer Date of Assessment Author 308.31 06/22/2025 1:32 PM EST Waggoner, Reese A * EBW (kg) Answer Date of Assessment Author 168.18 06/22/2025 1:32 PM EST Waggoner, Reese A * EBW (lb) Answer Date of Assessment Author 370.9 06/22/2025 1:32 PM EST Waggoner, Reese A * Difference in Weight Since Last Visit Answer Date of Assessment Author -0.5 06/22/2025 1:32 PM EST Waggoner, Reese A * Temp (in Celsius) for [place] IV Answer Date of Assessment Author 36.3 06/22/2025 1:32 PM EST Waggoner, Reese A * IBW/kg (Calculated) Answer Date of Assessment Author 77.62 06/22/2025 1:32 PM EST Waggoner, Reese A * Adult Low Range Vt 6mL/kg Answer Date of Assessment Author 465.72 06/22/2025 1:32 PM EST Waggoner, Reese A * Adult Moderate Range Vt 8mL/kg Answer Date of Assessment Author 620.96 06/22/2025 1:32 PM EST Waggoner, Reese A * Adult High Range Vt 10mL/kg Answer Date of Assessment Author 776.2 06/22/2025 1:32 PM EST Waggoner, Reese A * BP Answer Date of Assessment Author 121/85 06/22/2025 1:32 PM EST Waggoner, Reese A * Temp Answer Date of Assessment Author 97.4 06/22/2025 1:32 PM EST Waggoner, Reese A * Pulse Answer Date of Assessment Author 100 06/22/2025 1:32 PM EST Waggoner, Reese A * SpO2 Answer Date of Assessment Author 95 06/22/2025 1:32 PM EST Waggoner, Reese A * Height Answer Date of Assessment Author 72.008 06/22/2025 1:32 PM EST Waggoner, Reese A * Weight Answer Date of Assessment Author 8783.13 06/22/2025 1:32 PM EST Waggoner, Reese A * BSA (Calculated - sq m) Answer Date of Assessment Author 3.56 06/22/2025 1:32 PM EST Waggoner, Reese A * BMI (Calculated) Answer Date of Assessment Author 74.43 06/22/2025 1:32 PM EST Waggoner, Reese A * BP Location Answer Date of Assessment Author Right arm 06/22/2025 1:32 PM EST Waggoner, Reese A * Weight in (lb) to have BMI = 25 Answer Date of Assessment Author 184 06/22/2025 1:32 PM EST Waggoner, Reese A documented as of this encounter Mental Status * BP Answer Entry Date Author 121/85 06/22/2025 1:32 PM EST Waggoner, Reese A * Temp Answer Entry Date Author 97.4 06/22/2025 1:32 PM EST Waggoner, Reese A * Pulse Answer Entry Date Author 100 06/22/2025 1:32 PM EST Waggoner, Reese A * SpO2 Answer Entry Date Author 95 06/22/2025 1:32 PM EST Waggoner, Reese A * Height Answer Entry Date Author 72.008 06/22/2025 1:32 PM EST Waggoner, Reese A * Weight Answer Entry Date Author 8783.13 06/22/2025 1:32 PM EST Waggoner, Reese A * BMI (Calculated) Answer Entry Date Author 74.6 06/22/2025 1:32 PM EST Waggoner, Reese A * Percent Excess Weight Loss Answer Entry Date Author 0 06/22/2025 1:32 PM EST Waggoner, Reese A * Total Weight Change Percent Answer Entry Date Author 2222 06/22/2025 1:32 PM EST Waggoner, Reese A * Weight Change Since Preop Answer Entry Date Author 248.94 06/22/2025 1:32 PM EST Waggoner, Reese A * Initial Excess Weight Answer Entry Date Author -80.76 06/22/2025 1:32 PM EST Waggoner, Reese A * IBW in lbs (Bariatric) Answer Entry Date Author 178.05 06/22/2025 1:32 PM EST Waggoner, Reese A * Weight Change Since Last Visit Answer Entry Date Author 248.94 06/22/2025 1:32 PM EST Waggoner, Reese A * IBW in kg (Bariatric) Answer Entry Date Author 80.76 06/22/2025 1:32 PM EST Waggoner, Reese A * Percent of IBW Answer Entry Date Author 10,875.59 06/22/2025 1:32 PM EST Waggoner, Reese A * EBW (kg) Answer Entry Date Author 8,780.84 06/22/2025 1:32 PM EST Waggoner, Reese A * EBW (lbs) Answer Entry Date Author 8772 06/22/2025 1:32 PM EST Waggoner, Reese A * Weight Change 24 hrs Answer Entry Date Author -.5 06/22/2025 1:32 PM EST Waggoner, Reese A * BSA (Calculated - sq m) Answer Entry Date Author 3.56 06/22/2025 1:32 PM EST Waggoner, Reese A * BMI (Calculated) Answer Entry Date Author 74.43 06/22/2025 1:32 PM EST Waggoner, Reese A * BP Location Answer Entry Date Author Right arm 06/22/2025 1:32 PM EST Waggoner, Reese A * IBW/kg (Calculated) Male Answer Entry Date Author 77.62 06/22/2025 1:32 PM EST Waggoner, Reese A * IBW/kg (Calculated) Female Answer Entry Date Author 73.12 06/22/2025 1:32 PM EST Waggoner, Reese A * IBW/kg (Calculated) Answer Entry Date Author 77.62 06/22/2025 1:32 PM EST Waggoner, Reese A * Weight in (lb) to have BMI = 25 Answer Entry Date Author 184 06/22/2025 1:32 PM EST Waggoner, Reese A * BMI (Calculated) Answer Entry Date Author 74.6 06/22/2025 1:32 PM EST Waggoner, Reese A * Percent Excess Weight Loss Answer Entry Date Author 0 06/22/2025 1:32 PM EST Waggoner, Reese A * Weight Change Since Preop Answer Entry Date Author 249 06/22/2025 1:32 PM EST Waggoner, Reese A * Initial Excess Weight Answer Entry Date Author -80.76 06/22/2025 1:32 PM EST Waggoner, Reese A * IBW in kg (Bariatric) Answer Entry Date Author 80.76 06/22/2025 1:32 PM EST Waggoner, Reese A * IBW in lb (Bariatric) Answer Entry Date Author 178.05 06/22/2025 1:32 PM EST Waggoner, Reese A * Weight Change Since Last Visit Answer Entry Date Author 249 06/22/2025 1:32 PM EST Waggoner, Reese A * Percent of IBW Answer Entry Date Author 308.31 06/22/2025 1:32 PM EST Waggoner, Reese A * EBW (kg) Answer Entry Date Author 168.18 06/22/2025 1:32 PM EST Waggoner, Reese A * EBW (lb) Answer Entry Date Author 370.9 06/22/2025 1:32 PM EST WaggonerMorenoReese A * Difference in Weight Since Last Visit Answer Entry Date Author -0.5 06/22/2025 1:32 PM EST WaggonerMorenoReese A * Temp (in Celsius) for [place] IV Answer Entry Date Author 36.3 06/22/2025 1:32 PM EST WaggonerMorenoReese A * IBW/kg (Calculated) Answer Entry Date Author 77.62 06/22/2025 1:32 PM EST Waggoner Reese A * Adult Low Range Vt 6mL/kg Answer Entry Date Author 465.72 06/22/2025 1:32 PM EST Waggoner Reese A * Adult Moderate Range Vt 8mL/kg Answer Entry Date Author 620.96 06/22/2025 1:32 PM EST WaggonerMorenoReese A * Adult High Range Vt 10mL/kg Answer Entry Date Author 776.2 06/22/2025 1:32 PM EST Reese Waggoner A documented in this encounter Miscellaneous Notes * Patient Instructions - Radha Park RN - 06/22/2025 1:40 PM EST [facility] Physician Orders/Patient Instructions Should you notice a significant change in your wound(s) (such as increased drainage, foul odor, or pain) or have questions or problems following these instructions, please contact us at or call your primary care physician or the hospital emergency rooms. Wound Care/Dressing: Wound location Right foot Cleanse Wound With: with soap and water Apply: Adaptic Cover With: ABD pad Secure With: Owen Bandage and Kerlix (from toes to bottom of knee) Dressing Changes: Daily * Progress Notes - Mary Vicente MD - 06/22/2025 1:40 PM EST Dear Malcolm Hayward APRN, HPI Gonzalo Christian Drew is a 49-year-old male with a past medical history notable for class III obesity, CHF (EF 55% in 2021), paroxysmal atrial fibrillation (on Xarelto), HTN, HLD, T2DM, COPD, and QUINN on 2LNC at night, who initially presented with a nonhealing right foot wound. He is now status post right 5th toe ray amputation on 05/01 for osteomyelitis. He is doing well and nearly healed. Denies fevers or chills. Vascular Surgery History: (Date - Procedure - Hospital - Doctor) 05/01/2025- right 5th toe amputation I personally and independently reviewed and interpreted the Vascular Lab Images from today's visit which showed: FINDINGS: Right: Multiphasic waveforms are demonstrated at the levels of the SOCIAL MEDIA JOB TITLES and DPA. Segmental pressuresare within normal limits with a SOCIAL MEDIA JOB TITLES GABBI of 1.1 (172 mmHg) and a DPA GABBI of 1.0 (149 mmHg). Digit pressures are of 122 mmHg. Left: Multiphasic waveforms are demonstrated at the levels of the SOCIAL MEDIA JOB TITLES and DPA. Segmental pressures are within normal limits with a SOCIAL MEDIA JOB TITLES GABBI of 1.1 (164 mmHg) and a DPA GABBI of 1.0 (153 mmHg). Digit pressures are of 151 mmHg. IMPRESSION: Right: Normal study; No evidence of hemodynamically significant arterial disease at rest. Left: Normal study; No evidence of hemodynamically significant arterial disease at rest. His chronic comorbid conditions that impact our treatment planning include: I reviewed the following co-morbidities which are stable and controlled: Patient Active Problem List Diagnosis Date Noted Diabetic foot ulcer with osteomyelitis 04/28/2025 Abscess of groin, right 12/12/2024 Alcohol abuse 05/19/2024 Anxiety disorder 05/19/2024 Callus of foot 05/19/2024 Change of skin color 05/19/2024 Chest wall pain 05/19/2024 CHF (congestive heart failure) 05/19/2024 COPD (chronic obstructive pulmonary disease) 05/19/2024 Decreased pedal pulses 05/19/2024 Dehydration 05/19/2024 Dependence on supplemental oxygen 05/19/2024 Depression 05/19/2024 Diabetic neuropathy 05/19/2024 Dyspnea 05/19/2024 Epididymitis 05/19/2024 Hyperglycemia due to type 2 diabetes mellitus 05/19/2024 Insomnia 05/19/2024 Lumbar radiculopathy 05/19/2024 Mood swings 05/19/2024 Nausea 05/19/2024 Noncompliance 05/19/2024 Onychodystrophy 05/19/2024 Open wound of second toe of left foot 05/19/2024 Palpitations 05/19/2024 Atrial fibrillation with rapid ventricular response ([facility]/HCC) 05/19/2024 Primary osteoarthritis of knees, bilateral 05/19/2024 Recurrent major depression resistant to treatment (CMS/HCC) 05/19/2024 S/P gastric sleeve procedure 05/19/2024 Diabetic foot ulcer 05/19/2024 Smoker unmotivated to quit 05/19/2024 Tachycardia 05/19/2024 Neuropathy 09/30/2021 Other hyperlipidemia 12/21/2020 Type 2 diabetes 12/21/2020 Lower back pain 04/22/2019 Hypertension 02/18/2019 Edema 02/18/2019 Uncontrolled type 2 diabetes mellitus with hyperglycemia, with long-term current use of insulin 06/14/2018 Microalbuminuria 04/09/2018 Morbid obesity ([facility]/HCC) 12/24/2016 Allergic rhinitis 12/24/2016 QUINN (obstructive sleep apnea) 12/24/2016 Tobacco abuse counseling 12/24/2016 Bone pain 06/27/2014 Pyogenic inflammation of bone 04/27/2025 The following portions of the chart were reviewed this encounter and updated as appropriate: Tobacco Allergies Meds Problems Med Hx Surg Hx Fam Hx Subjective Review of Systems Objective Physical Exam Constitutional: well developed, well nourished, and in no acute distress Eye: equal, round, and reactive Ears, Nose, Throat: normal atraumatic, no neck masses Respiratory: Normal expansion. Clear to auscultation. No rales, rhonchi, or wheezing. Cardiac: Heart sounds are normal. Regular rate and rhythm without murmur, gallop or rub. Abdomen: Soft, non-tender, normal bowel sounds; no bruits, organomegaly or masses. Musculoskeletal: normal strength, tone, and muscle mass, no deformities Psychiatric: oriented to time, place and person, mood and affect are within normal limits Neurologic: normal sensation and reflexes and motor intact Skin: right fifth toe amputation site with beefy red granulation tissue and no surrounding erythema Assessment/Plan In Summary: Gonzalo Russell is a 49 y.o. year old male who we saw today in clinic. I discussed the test interpretations and management with associated orders of the following medical conditions of: Problem List Items Addressed This Visit Respiratory QUINN (obstructive sleep apnea) - Primary COPD (chronic obstructive pulmonary disease) Dependence on supplemental oxygen Dyspnea Circulatory Hypertension Relevant Medications metOLazone (Zaroxolyn) 2.5 MG tablet CHF (congestive heart failure) Decreased pedal pulses Palpitations Atrial fibrillation with rapid ventricular response (CMS/HCC) Tachycardia Digestive Morbid obesity (CMS/HCC) Endocrine/Metabolic Uncontrolled type 2 diabetes mellitus with hyperglycemia, with long-term current use of insulin Relevant Medications HumuLIN R U-500 KWIKPEN 500 UNIT/ML CONCENTRATED injection pen Type 2 diabetes Relevant Medications HumuLIN R U-500 KWIKPEN 500 UNIT/ML CONCENTRATED injection pen Other Tobacco abuse counseling Recurrent major depression resistant to treatment (CMS/HCC) Relevant Medications LORazepam (Ativan) 1 MG tablet traZODone (Desyrel) 100 MG tablet S/P gastric sleeve procedure Smoker unmotivated to quit We will see him back for: No follow-ups on file. The patient was counseled on the importance of: - blood pressure monitoring - proper nutrition, exercise and maintaining a healthy weight. 49yoM with right 5th toe amp. - Follow-up in 1 month - adaptic and dry dressing - BGL <200 goal documented in this encounter Plan of Treatment Upcoming Encounters Date Type Department Care Team (Late st Contact Info) Description 08/10/2025 11:20 AM EST Office Visit [facility] [address] [facility] [address] [place] [address] Mary Vicente MD [address] [facility] [address] [place] [address] documented as of this encounter Procedures Procedure Name Priority Date/Time Associated Diagnosis Comments [facility] Monetsu ORDER Routine 06/22/2025 2:05 PM EST documented in this encounter Results * DME Order (06/22/2025 2:05 PM EST) [facility] PARACCloudPrimeTE SUPPLIER NAME [facility] (Wound Care) [facility] PAR[facility] DME [facility] PARAC[employer] SUPPLIER PHONE [facility] [place] DME [facility] [place] DELIVERY STATUS Delivery Successful [facility] [place] DME [facility] [place] DELIVERY NOTE [facility] DME [facility] REQUESTED DELIVERY DATE 06/22/2025 [facility] [place] [facility] [place] ACTUAL DELIVERY DATE 06/22/2025 [facility] [place] DME [facility] ITEM DESCRIPTION Adaptic Petrolatum Emulsion Non-Adherent Dressing, 3 x 8 in., Box (24) [facility] DME Comment: Qty: 1 Substitution Status: In the event of product backorder, discontinuation, or patient preference, substitutions are permitted for wound care products on this order. [facility] ITEM DESCRIPTION MediChoice Sterile Abdominal Pads, 5 x 9 in., Box (36) [facility] DME Comment: Qty: 1 Substitution Status: In the event of product backorder, discontinuation, or patient preference, substitutions are permitted for wound care products on this order. [facility] ITEM DESCRIPTION [employer] Fluff Gauze Bandage Roll, Sterile, 6-ply, 4.5 in. x 4.1 yd., Each (1) [facility] DME Comment: Qty: 30 Substitution Status: In the event of product backorder, discontinuation, or patient preference, substitutions are permitted for wound care products on this order. [facility] ITEM DESCRIPTION Jose-Band LF Latex Free Elastic Bandage with Hook and Loop Closure, Wound Care Treatment, NS, 3 in. x 5 yd., Box (10[facility] Comment: Qty: 2 Substitution Status: In the event of product backorder, discontinuation, or patient preference, substitutions are permitted for wound care products on this order. 06/22/2025 2:05 PM EST us Mary Vicente MD DME ORDERABLES Final Result [facility] KENYACANDY RODNEY documented in this encounter Visit Diagnoses Diagnosis QUINN (obstructive sleep apnea)- Primary Obstructive sleep apnea (adult) (pediatric) Chronic obstructive pulmonary disease, unspecified COPD type (CMS/HCC) Dependence on supplemental oxygen Dyspnea, unspecified type Primary hypertension Unspecified essential hypertension Congestive heart failure, unspecified HF chronicity, unspecified heart failure type Decreased pedal pulses Other symptoms involving cardiovascular system Palpitations Atrial fibrillation with rapid ventricular response ([facility]/HCC) Tachycardia Unspecified tachycardia Morbid obesity ([facility]) Morbid obesity Uncontrolled type 2 diabetes mellitus with hyperglycemia, with long-term current use of insulin Type 2 diabetes mellitus with diabetic peripheral angiopathy without gangrene, with long-term current use of insulin Tobacco abuse counseling S/P gastric sleeve procedure Recurrent major depression resistant to treatment ([facility]) Smoker unmotivated to quit documented in this encounter Additional Health Concerns Assessment Noted Time PHQ-9 Depression Total Score: 0 09/14/19 25 2:29 PM EST A fall risk assessment has been complete d for the patient 09/13/2024 2:29 PM EST A Body Mass Index follow-up plan has been documented for the patient 06/22/2025 2:05 PM EST documented as of this encounter Care Teams Still Operator Brandy Relationship Specialty Start Date End Date Malcolm Hayward APRN [id number] PCP - General 09/21/23 documented as of this encounter
--- OUTSIDE RECORDS SUMMARY | 2025-07-10 11:43 | XMS_ITS ---
Care Plan - [facility], [facility] Created on: July 10, 2025 oGnzalo Russell : 1975 Sex: Male Author Organization [facility] Address [address] [place] [address] Phone Care Team Providers Care Coremaking Supervisor Name Role Phone Allen RUSH, Emanuel Maurice Unavailable [phone] TRELL BECKWITH MD Unavailable [phone] ZI SUE DPM Unavailable [phone] Petty Frost PA-C Primary Care Provider [phone]
--- OUTSIDE RECORDS SUMMARY | 2025-07-10 11:43 | XMS_ITS | Clinical Summary ---
Author Organization [facility] Address [address] [facility] [place] [address] Phone Care Team Providers Care Bible Reader Name Role Phone Allen RUSH, Emanuel Maurice Unavailable [phone] TRELL BECKWITH MD Unavailable [phone] PAWZI HENRY DPM Unavailable [phone] Petty Frost PA-C Primary Care Provider [phone] Reason for Visit and Chief Complaint referred by self - The Chief Complaint is: Low back pain Problems Includes: Problems addressed during this encounter and other active Problems Current Visit Onset Date Date of Diagnosis Resolved Date Provider Condition Status Lower Back Pain 04/22/2019 04/22/2019 Emanuel Villa MD Active Last Documented On 5 1:39AM ; [facility], [facility] Past Visits Onset Date Date of Diagnosis Resolved Date Provider Condition Status Bone Pain in the Heel 06/27/2014 06/27/2014 Randy Booth DPM Active Last Documented On 5 1:37AM ; [facility], [facility] Plan of Treatment - Weight loss diet - Last Documented On 11/09/2019 12:13PM ; [facility] Patient was seen by myself [...] - Last Documented On 11/09/2019 12:13PM ; [facility], [facility] Instructions to patient Instructions for patient See PCP for BP and Weight Last Documented On 9 4:12PM ; [facility] Lose weight Last Documented On 9 11:03AM ; [facility], [facility] Assessments Includes: Assessments from this encounter Findings Low back pain lumbar DDD - Last Documented On 11/09/2019 12:13PM ; [facility] Instructions Includes: Instructions from this encounter Instructions to patient Instructions for patient See PCP for BP and Weight Last Documented On 9 4:12PM ; [facility] Lose weight Last Documented On 9 11:03AM ; [facility], [facility] Medical Equipment - Implanted Devices Includes: Current Devices No Medical Equipment Recorded Medications Includes: Medications discussed during this encounter and other current Medications Discontinued / Stopped on this date on 06/27/2014 Lexapro 10 MG OR TABS Provider: Diagnosis: Last Documented On 9 4:08PM By Daniel Mo ; [facility], [facility] Lisinopril 10 MG OR TABS Provider: Diagnosis: Last Documented On 9 4:08PM By Daniel Mo ; [facility], [facility] metFORMIN HCl 500 MG TABS Provider: Diagnosis: Last Documented On 9 4:08PM By Daniel Mo ; [facility], [facility] Dexilant 30 MG OR CPDR Provider: Diagnosis: Last Documented On 9 4:08PM By Daniel Mo ; [facility], [facility] Current Medications (continue as prescribed) Xarelto 20 MG Oral Tablet 11/16/2021 Provider: Diagnosis: Last Documented On 2 3:17PM By Estrellita Vázquez ; [facility] Metoclopramide HCl 10 MG Oral Tablet 04/21/2019 Prov ider: Chintan Aguayo MD Diagnosis: Last Documented On 9 4:08PM By Daniel Mo ; [facility], [facility] Atorvastatin Calcium 40 MG Oral Tablet 04/21/2019 Pr ovider: Diagnosis: Last Documented On 9 4:08PM By Daniel Mo ; [facility], [facility] Furosemide 40 MG Oral Tablet 04/21/2019 Provider: Diagnosis: Last Documented On 9 4:09PM By Daniel Mo ; [facility], [facility] Potassium Chloride 20 MEQ Oral Packet 04/21/2019 Pro vider: Diagnosis: Last Documented On 9 4:09PM By Daniel Mo ; [facility], [facility] Omeprazole 40 MG Oral Capsul e Delayed Release 04/21/2019 Provider: Chintan Aguayo MD Diagnosis: Last Documented On 9 4:10PM By Daniel Mo ; [facility] ARIPiprazole 5 MG Oral Tablet 04/14/2019 Provider: Diagnosis: Last Documented On 9 4:10PM By Daniel Mo ; [facility] Venlafaxine HCl ER 150 MG Or al Capsule Extended Release 24 Hour 03/31/2019 Provider: Diagnosis: Last Documented On 9 4:10PM By Daniel Mo ; [facility] metFORMIN HCl 1000 MG Oral Tablet 03/10/2019 Provide r: Chintan Aguayo MD Diagnosis: Last Documented On 9 4:10PM By Daniel Mo ; [facility], [facility] Lisinopril-hydroCHLOROthiazi de 20-25 MG Oral Tablet 03/04/2019 Provider: TRELL BECKWITH MD Diagnosis: Last Documented On 9 4:10PM By Daniel Mo ; [facility] Past Medications on file Diclofenac Potassium 50 MG O R TABS 06/27/2014 - 07/27/2014 Provider: Randy DUMONT Diagnosis: be Last Documented On 4 1:34PM By Isa Avendano ; [facility] Medications Administered Includes: Administered Medications from this encounter No Administered Medications Recorded Vital Signs Includes: Vital Signs from this encounter Vital Name 04/22/2019 11:37A Blood Pressure Sitting R 150/90 Pulse Rate-Sitting (bpm) 94 Height (in) 73 Weight (lb) 512 Body Mass Index (kg/m2) 67.5 Body Surface Area (m2) 3.2 Pain Level 8 Note: lmp Last Documented: On 04/25/2019 11:20A M ; [facility] Results Includes: Results discussed during [...] has had injections with pain management in [facility] [place] as well as here in [place] he says the one in [place] did not do much for him but he has some sort of injection here in [place] which did help. he is not complaining of any numbness or tingling about her bladder problems Social History Description Last Updated Tobacco use 06/27/2014 Last Documented On 9 11:03AM ; [facility] Smoking status : Current everyday smoker 06/27/2014 Last Documented On 9 11:03AM ; [facility] Alcohol use 06/27/2014 Last Documented On 9 11:03AM ; [facility] Current smoker 06/27/2014 Last Documented On 9 11:03AM ; [facility] No caffeine use 06/27/2014 Last Documented On 9 11:03AM ; [facility], [facility] No recent change in diet 06/27/2014 Last Documented On 9 11:03AM ; [facility] Not exercising regularly 06/27/2014 Last Documented On 9 11:03AM ; [facility] Not using drugs 06/27/2014 Last Documented On 9 11:03AM ; [facility], [facility] Sex - Male 11/02/2022 Last Documented On 3 1:37PM ; [facility] Procedures and Surgical History Includes: Procedures from this encounter Procedures Code Diagnosis Performing Provider Service Location Service Date pharmacologic therapy for cessation of tobacco use 4001F Last Documented On 9 11:03AM ; [facility], [facility] Clinical summary provided to patient Last Documented On 9 4:12PM ; [facility] Medical History Includes: Medical History addressed during this encounter Description Last Updated Intermittent hypertension 04/22/2019 Last Documented On 0 12:13PM ; [facility] History of depression 04/22/2019 Last Documented On 0 12:13PM ; [facility] gall bladder, wisdom teeth 06/27/2014 Last Documented On 9 11:03AM ; [facility] Arthritic joint problems 06/27/2014 Last Documented On 9 11:03AM ; [facility] History of diabetes mellitus 06/27/2014 Last Documented On 9 11:03AM ; [facility] History of gastric ulcer 06/27/2014 Last Documented On 9 11:03AM ; [facility] Family History Includes: Family History addressed during this encounter Description Last Updated Family history of hypertension 9 Last Documented On 0 12:13PM ; [facility] non-contributory 06/27/2014 Last Documented On 9 11:03AM ; [facility], [facility] Review of Systems Includes: Review of Systems [...] Status from this encounter Description No anxiety Last Documented On 9 11:03AM ; [facility] Physical Exam Includes: Physical Exam from this encounter Allergies Includes: Active Allergies No Known Allergies Care Bible Reader Name (Identifier) Role/Relation Location/Telecom Last Documented By Emanuel Villa MD ([id number]) Assigned practitioner (occupation) [address] [place] [address], [place], [address] tel:[phone] Last Documented On 11/02/2022 1:37PM ; [facility] TRELL BECKWITH MD ([id number]) [place], [address] tel:[phone] Last Documented On 06/27/2014 1:01PM ; [facility] ZI SUE DPM ([id number]) [address] [place] [address], [place], [address] tel:[phone] Last Documented On 06/27/2014 1:01PM ; [facility] Petty Frost PA-C ([id number]) Primary care physician (occupation) [address] [place] [address], , [address] tel:[phone] Last Documented On 11/02/2022 1:37PM ; [facility] Encounters Encounter Provider Location (Healthcare Service Location) Date Check-In Time Check-Out Time Diagnosis Encounter Disposition Physician Specified Emanuel Villa MD [facility] 2018 10:58AM 12:17PM Payer Includes: Active Insurance Policies Plan Name (Payer ID) Coverage Type Member ID Group # Subscriber (ID) Relationship Effective Dates 1 - [facility] ([id number]) [id number] Gonzalo Russell Self 03/13/2022 - Unknown Last Documented On 2 11:04AM ; [facility]
--- OUTSIDE RECORDS SUMMARY | 2025-07-10 11:43 | XMS_ITS | Encounter Summary ---
Author Organization Healthcare Address [address] [id number] Care Team Providers Care Gum Rolling Machine Tender Name Role Phone Malcolm Hayward DRAPERY COUNSELOR Primary Care Provider [phone] Reason for Visit * Reason Comments Med Refill Encounter Details Date Type Department Care Team (Late st Contact Info) Description 12/31/2023 Refill [facility] [address] [place] [address] Earline Loaiza APRN [address] [facility] [address] [place] [address] Type 2 diabetes mellitus (CMS/HCC) [...] Description 08/10/2025 11:20 AM EST Office Visit [place] [facility] [address] [facility] 5th Floor [address] [place] [address] Mary Vicente MD [address] [facility] [address] [place] [address] documented as of this encounter [...] documented as of this encounter Care Teams Gum Rolling Machine Tender Relationship Specialty Start Date End Date Malcolm Hayward APRN [phone] PCP - General 09/21/23 documented as of this encounter
--- OUTSIDE RECORDS SUMMARY | 2025-07-10 11:43 | XMS_ITS | Clinical Summary ---
Author Organization [facility] Address [address] [facility] [place] [address] Phone Care Team Providers Care Wax Pattern Repairer Name Role Phone Allen RUSH, Emanuel Maurice Unavailable [phone] TRELL BECKWITH MD Unavailable [phone] PAWZI HENRY DPM Unavailable [phone] Petty Frost PA-C Primary Care Provider [phone] Reason for Visit and Chief Complaint Epidural Steroid Injection Problems Includes: Problems addressed during this encounter and other active Problems All Visits Onset Date Date of Diagnosis Resolved Date Provider Condition Status Lower Back Pain 04/22/2019 04/22/2019 Emanuel Villa MD Active Last Documented On 5 1:39AM ; [facility] Bone Pain in the Heel 06/27/2014 06/27/2014 Randy Booth DPM Active Last Documented On 5 1:37AM ; [facility] Plan of Treatment No Plan [...] On 2 3:17PM By Estrellita Vázquez ; [facility] Metoclopramide HCl 10 MG Oral Tablet 04/21/2019 Prov ider: Chintan Aguayo MD Diagnosis: Last Documented On 9 4:08PM By Daniel Mo ; [facility] Atorvastatin Calcium 40 MG Oral Tablet 04/21/2019 Pr ovider: Diagnosis: Last Documented On 9 4:08PM By Daniel Mo ; [facility], [facility] Furosemide 40 MG Oral Tablet 04/21/2019 Provider: Diagnosis: Last Documented On 9 4:09PM By Daniel Mo ; [facility], [facility] Potassium Chloride 20 MEQ Oral Packet 04/21/2019 Pro vider: Diagnosis: Last Documented On 9 4:09PM By Daniel Mo ; [facility], [facility] Omeprazole 40 MG Oral Capsul e Delayed Release 04/21/2019 Provider: Chintan Aguayo MD Diagnosis: Last Documented On 9 4:10PM By Daniel Mo ; [facility] ARIPiprazole 5 MG Oral Tablet 04/14/2019 Provider: Diagnosis: Last Documented On 9 4:10PM By Daniel Mo ; [facility] Venlafaxine HCl ER 150 MG Or al Capsule Extended Release 24 Hour 03/31/2019 Provider: Diagnosis: Last Documented On 9 4:10PM By Daniel Mo ; [facility] metFORMIN HCl 1000 MG Oral Tablet 03/10/2019 Provide r: Chintan Aguayo MD Diagnosis: Last Documented On 9 4:10PM By Daniel Mo ; [facility] Lisinopril-hydroCHLOROthiazi de 20-25 MG Oral Tablet 03/04/2019 Provider: TRELL BECKWITH MD Diagnosis: Last Documented On 9 4:10PM By Daniel Mo ; [facility] Medications Administered Includes: Administered Medications from this encounter No Administered Medications Recorded Results Includes: Results discussed during this encounter No Results Recorded For Specified Dates History of Present Illness Includes: History of Present Illness from this encounter No History of Present Illness Recorded Social History Description Last Updated Sex - Male 11/02/2022 Last Documented On 3 1:37PM ; [facility] Smoking Status Unknown Medical History Includes: Medical History addressed during this encounter No Medical History Recorded Family History Includes: Family History addressed during this encounter No Family History Recorded Review of Systems Includes: Review of Systems from this encounter No Review of Systems Recorded Physical Exam Includes: Physical Exam from this encounter No Physical Exam Recorded Allergies Includes: Active Allergies No Known Allergies Care Wax Pattern Repairer Name (Identifier) Role/Relation Location/Telecom Last Documented By Emanuel Villa MD ([id number]) Assigned practitioner (occupation) [address] [place], [place], , [address] tel:[phone] Last Documented On 11/02/2022 1:37PM ; [facility], [facility] TRELL BECKWITH MD ([id number]) [facility], [address] tel:[phone] Last Documented On 06/27/2014 1:01PM ; [facility] ZI SUE DPM ([id number]) [address] [place] [address], , [address] tel:[phone] Last Documented On 06/27/2014 1:01PM ; [facility] Petty Frost PA-C ([id number]) Primary care physician (occupation) [address] [place] [address], , [address] tel:[phone] Last Documented On 11/02/2022 1:37PM ; [facility] Encounters Encounter Provider Location (Healthcare Service Location) Date Check-In Time Check-Out Time Diagnosis Encounter Disposition Epidural Steroid Injection Emanuel Villa MD 2021 12:08PM 11:59PM Payer Includes: Active Insurance Policies Plan Name (Payer ID) Coverage Type Member ID Group # Subscriber (ID) Relationship Effective Dates 1 - [facility] ([id number]) [id number] Gonzalo Russell Self 03/13/2022 - Unknown Last Documented On 11:04AM ; [facility]
--- OUTSIDE RECORDS SUMMARY | 2025-07-10 11:43 | XMS_ITS | Clinical Summary ---
Author Organization [employer] ([place], [place], [place], [place], [place]) Address [address] [place] [address] Care Team Providers Care Trial Attorney Name Role Phone Malcolm Hayward APRN Primary Care Provider [phone] Allergies No known active allergies Medications atorvastatin [...] Insurance MEDICARE PART A B /[facility] Care Teams Trial Attorney Relationship Specialty Start Date End Date Malcolm Hayward APRN [address] [id number] PCP - General Nurse Practitioner 12/20/24
--- OUTSIDE RECORDS SUMMARY | 2025-07-10 11:43 | XMS_ITS | Referral Summary ---
Author Organization [employer] ([place], [place], [place], [place], [place]) Address [address] [place] [address] Care Team Providers Care Aluminum Molding Machine Operator Name Role Phone Malcolm Hayward APRN Primary Care Provider [phone] Allergies No known active allergies Medications atorvastatin [...] A B BLUE CROSS/BLUE SHIELD Care Teams Aluminum Molding Machine Operator Relationship Specialty Start Date End Date Malcolm Hayward, ADALGISA [address] [place] [address] PCP - General Nurse Practitioner 12/20/24
--- OUTSIDE RECORDS SUMMARY | 2025-07-10 11:43 | XMS_ITS ---
Author Organization [facility] Address [address] [address] Phone Care Team Providers Care Qa Tester Name Role Phone Allen RUSH, Emanuel Maurice Unavailable [phone] TRELL BECKWITH MD Unavailable [phone] PAWZI HENRY DPM Unavailable [phone] Petty Frost PA-C Primary Care Provider [phone] Problems Includes: Active, inactive, and resolved Problems All Visits Onset Date Date of Diagnosis Resolved Date Provider Condition Status Lower Back Pain 04/22/2019 04/22/2019 Emanuel Villa MD Active Last Documented On 5 1:39AM ; [facility] Bone Pain in the Heel 06/27/2014 06/27/2014 Randy Booth DPM Active Last Documented On 5 1:37AM ; [facility] Plan of Treatment Findings Encounter Date Ordered weight loss diet Physician Specified smitha Villa MD 04/22/2019 Last Documented On 9 11:03AM ; [facility] Ordered weight loss diet NEW PATIENT with Randy Booth DPM 06/27/2014 Last Documented On 4 1:00PM ; [facility] Instructions to patient Instructions for patient See PCP for BP and Weight Last Documented On 2 2:52PM ; [facility] Intervention and counseling on cessation of [...] On 2 3:17PM By Estrellita Vázquez ; [facility] Metoclopramide HCl 10 MG Oral Tablet 04/21/2019 Prov ider: Chintan Aguayo MD Diagnosis: Last Documented On 9 4:08PM By Daniel Mo ; [facility] Atorvastatin Calcium 40 MG Oral Tablet 04/21/2019 Pr ovider: Diagnosis: Last Documented On 9 4:08PM By Daniel Mo ; [facility] Furosemide 40 MG Oral Tablet 04/21/2019 Provider: Diagnosis: Last Documented On 9 4:09PM By Daniel Mo ; [facility], [facility] Potassium Chloride 20 MEQ Oral Packet 04/21/2019 Pro vider: Diagnosis: Last Documented On 9 4:09PM By Daniel Mo ; [facility], [facility] Omeprazole 40 MG Oral Capsul e Delayed Release 04/21/2019 Provider: Chintan Aguayo MD Diagnosis: Last Documented On 9 4:10PM By Daniel Mo ; [facility] ARIPiprazole 5 MG Oral Tablet 04/14/2019 Provider: Diagnosis: Last Documented On 9 4:10PM By Daniel Mo ; [facility] Venlafaxine HCl ER 150 MG Or al Capsule Extended Release 24 Hour 03/31/2019 Provider: Diagnosis: Last Documented On 9 4:10PM By Daniel Mo ; [facility], [facility] metFORMIN HCl 1000 MG Oral Tablet 03/10/2019 Provide r: Chintan Aguayo MD Diagnosis: Last Documented On 9 4:10PM By Daniel Mo ; [facility], [facility] Lisinopril-hydroCHLOROthiazi de 20-25 MG Oral Tablet 03/04/2019 Provider: TRELL BECKWITH MD Diagnosis: Last Documented On 9 4:10PM By Daniel Mo ; [facility], [facility] Past Medications on file Lexapro 10 MG OR TABS 06/27/2014 - 04/22/2019 Provider : Diagnosis: Last Documented On 9 4:08PM By Daniel Mo ; [facility] Lisinopril 10 MG OR TABS 06/27/2014 - 04/22/2019 Provi vincent: Diagnosis: Last Documented On 9 4:08PM By Daniel Mo ; [facility] metFORMIN HCl 500 MG TABS 06/27/2014 - 04/22/2019 Prov ider: Diagnosis: Last Documented On 9 4:08PM By Daniel Mo ; [facility] Dexilant 30 MG OR CPDR 06/27/2014 - 04/22/2019 Provide r: Diagnosis: Last Documented On 9 4:08PM By Daniel Mo ; [facility], [facility] Diclofenac Potassium 50 MG O R TABS 06/27/2014 - 07/27/2014 Provider: Randy DUMONT Diagnosis: be Last Documented On 4 1:34PM By Isa Avendano ; [facility], [facility] Medications Administered Includes: Administered Medications in patient's chart No Administered Medications Recorded Results Includes: Results from 07/10/2024 through 07/10/2025 No Results Recorded For Specified Dates Social History Description Last Updated Smoker 12/12/2021 Last Documented On 3 1:37PM ; [facility] Unemployed 12/12/2021 Last Documented On 3 1:37PM ; [facility] Tobacco use 06/27/2014 Last Documented On 4 1:30PM ; [facility], [facility] Smoking status : Current everyday smoker 06/27/2014 Last Documented On 4 1:30PM ; [facility], [facility] Alcohol use 06/27/2014 Last Documented On 4 1:30PM ; [facility] Current smoker 06/27/2014 Last Documented On 4 1:30PM ; [facility] No caffeine use 06/27/2014 Last Documented On 4 1:30PM ; [facility] No recent change in diet 06/27/2014 Last Documented On 4 1:30PM ; [facility] Not exercising regularly 06/27/2014 Last Documented On 4 1:30PM ; [facility] Not using drugs 06/27/2014 Last Documented On 4 1:30PM ; [facility], [facility] Sex - Male 11/02/2022 Last Documented On 3 1:37PM ; [facility] Medical History Includes: Medical History in patient's chart Description Last Updated No recent immunization for flu 2 Last Documented On 3 1:37PM ; [facility] No recent immunization for pneumococcal pneumonia 12/12/2021 Last Documented On 3 1:37PM ; [facility], [facility] Intermittent hypertension 04/22/2019 Last Documented On 0 12:13PM ; [facility] History of depression 04/22/2019 Last Documented On 0 12:13PM ; [facility] gall bladder, wisdom teeth 06/27/2014 Last Documented On 4 1:30PM ; [facility] Arthritic joint problems 06/27/2014 Last Documented On 4 1:30PM ; [facility] History of diabetes mellitus 06/27/2014 Last Documented On 4 1:30PM ; [facility] History of gastric ulcer 06/27/2014 Last Documented On 4 1:30PM ; [facility] Family History Includes: Family History in patient's chart Description Last Updated Family history of hypertension 9 Last Documented On 0 12:13PM ; [facility] non-contributory 06/27/2014 Last Documented On 4 1:30PM ; [facility], [facility] Mental Status Description No anxiety Last Documented On 2 2:52PM ; [facility], [facility] No anxiety Last Documented On 9 11:03AM ; [facility], [facility] No anxiety Last Documented On 4 12:59PM ; [facility] Allergies Includes: Active, inactive, and resolved Allergies No Known Allergies Care Qa Tester Name (Identifier) Role/Relation Location/Telecom Last Documented By Emanuel Villa MD ([id number]) Assigned practitioner (occupation) [address] [place] [address], [place], [address] tel:[phone] Last Documented On 11/02/2022 1:37PM ; [facility] TRELL BECKWITH MD ([id number]) [facility], [address] tel:[phone] Last Documented On 06/27/2014 1:01PM ; [facility], [facility] ZI SUE DPM ([id number]) [address] [place], [place], , [address] tel:[phone] Last Documented On 06/27/2014 1:01PM ; [facility] Petty Frost PA-C ([id number]) Primary care physician (occupation) [address] [place], [place], , [address] tel:[phone] Last Documented On 11/02/2022 1:37PM ; [facility] Payer Includes: Active Insurance Policies Plan Name (Payer ID) Coverage Type Member ID Group # Subscriber (ID) Relationship Effective Dates 1 - [facility] ([id number]) [id number] Gonzalo Russell Self 03/13/2022 - Unknown Last Documented On 11:04AM ; [facility]
--- OUTSIDE RECORDS SUMMARY | 2025-07-10 11:43 | XMS_ITS | Encounter Summary ---
Author Organization [facility] Address [address] [place] [address] Care Team Providers Care Braiding Machine Operator Name Role Phone Malcolm Hayward APRN Primary Care Provider [phone] Encounter Details Date Type Department Care Team [...] in the past [address] [facility], were you homeless or living in a mcc (including now)? No 04/28/2025 [facility] Utilities Answer Date Recorded In [...] as of this encounter Functional Status * Travel Screening Question Answer Date of Assessment Author Have you traveled [place] or domestically in the last month? No 06/16/2025 9:37 AM EST Mycha rt, Generic documented as of this encounter Mental Status * Travel Screening Question Answer Entry Date Author Have you traveled [place] or domestically in the last month? No 06/16/2025 9:37 AM EST Mycha rt, Generic documented in this encounter Plan of Treatment Upcoming Encounters Date Type Department Care Team (Late st Contact Info) Description 08/10/2025 11:20 AM EST Office Visit [place] [facility] [address] [facility] [address] 5th [address] [place] [address] Mary Vicente MD [address] [facility] [address] [place] [address] documented as of this encounter [...] documented as of this encounter Care Teams Braiding Machine Operator Relationship Specialty Start Date End Date Malcolm Hayward APRN [id number] PCP - General 09/21/23 documented as of this encounter
--- OUTSIDE RECORDS SUMMARY | 2025-07-10 11:43 | XMS_ITS | Encounter Summary ---
Author Organization [facility] Address [address] [place] [address] Care Team Providers Care Magneto Electrician Name Role Phone Malcolm Hayward APRN Primary Care Provider [phone] Encounter Details Date Type Department Care Team (Late st Contact Info) Description 06/13/2025 Telephone Vascular Surgery [address] [place] [address] Rohith Ramires, DIRECTOR OF LOSS PREVENTION None Social History Tobacco Use Types Packs/Day [...] in a half-way (including now)? No 04/28/2025 [facility] [...] boot at home. Patient has seen a satellite television installer after discharge for wound culturing and it came back positive, patient had asked for IV ABX, but SGR team cannot write for ABX from someone elses cultures. Gis Mapping Technician should manage that, but does not want to because of recent surgery. Clinic staff has recommended multiple times via epic chat in mychart and phone calls to go to the ED if satellite television installer unable/unwilling totreat. Has yet to go, and [...] Description 08/10/2025 11:20 AM EST Office Visit [facility] [address] [facility] 5th Floor [address] [place] [address] Mary Vicente MD [address] [facility] [address] [place] [address] documented as of this encounter [...] documented as of this encounter Care Teams Magneto Electrician Relationship Specialty Start Date End Date Malcolm Hayward APRN [id number] PCP - General 09/21/23 documented as of this encounter
--- OUTSIDE RECORDS SUMMARY | 2025-07-10 11:43 | XMS_ITS | Encounter Summary ---
Author Organization [facility] Address [address] [id number] Care Team Providers Care Sugarcane Research Technician Name Role Phone Malcolm Hayward APRN Primary Care Provider [phone] Encounter Details Date Type Department Care Team (Late st Contact Info) Description 06/12/2025 Telephone [place] [facility] [address] [facility] 5th Floor [address], [address] [place] [address] Mary Vicente MD [address] [facility] [address] [place] [address] Social History Tobacco Use Types [...] time in the past 12 m [facility], were you homeless or living in a group home (including now)? No 04/28/2025 [facility] Utilities Answer Date Recorded In [...] Clinical Concern/Question Reason for Call: Dolly feliciano [facility] would like to speak to a nurse about patient's weight bearing status. Thank you! Has questions about a special shoe patient could use. Best contact number: Other: [phone] Optimal time of day to reach caller: [...] [place] [facility] [address] [facility] 5th Floor [address] [place] [address] Mary Vicente MD [address] [facility] [address] [place] [address] documented as of this encounter [...] documented as of this encounter Care Teams Sugarcane Research Technician Relationship Specialty Start Date End Date Malcolm Hayward APRN [id number] PCP - General 09/21/23 documented as of this encounter
--- OUTSIDE RECORDS SUMMARY | 2025-07-10 11:44 | XMS_ITS | Encounter Summary ---
Author Organization [facility] Address [address] [address] Care Team Providers Care Search Developer Name Role Phone Malcolm Hayward APRN Primary Care Provider [phone] Reason for Visit * Reason Onset Date Comments HCN - Patient Message 07/03/2025 reschedule Encounter Details Date Type Department Care Team (Late st Contact Info) Description 07/03/2025 Telephone [place] [facility] [address] [facility] 5th Floor Wing [address], [address] [place] [address] Mary Vicente MD [address] [facility] [address] [place] [address] HCN - Patient Message (reschedule) [...] in a mcc (including now)? No 04/28/2025 [facility] [...] encounter Miscellaneous Notes * Telephone Encounter - Lizarraga, Ana Lilia Maurice - 07/07/2025 8:17 AM EST Status Update Call #1 1st call regarding the status of the initial request. Best contact number: Other: [phone] Optimal time of day to reach caller: [...] communication/outcome via MyChart. * Telephone Encounter - Araceli Duffy - 07/03/2025 9:32 AM EST Patient Phone Message Reason for Call: Maggie [facility] for 1 week further out please. Nothing avail until September Best contact number and optimal time of day to reach caller: [phone] Note: Please do not reply to this message. Follow-up communication and further actions as a result of this message need to be communicated with the patient directly, if the patient is not active onMyChart. If the patient is active on MyChart, they will receive notification of the communication/outcome via MyCP[facility] L[facility]. documented in this encounter Plan of Treatment Upcoming Encounters Date Type Department Care Team (Late st Contact Info) Description 08/10/2025 11:20 AM EST Office Visit [facility] [address] [facility] 5th Floor [address], [address] [place] [address] Mary Vicente MD [address] [facility] [address] [place] [address] documented as of this encounter [...] documented as of this encounter Care Teams Search Developer Relationship Specialty Start Date End Date Malcolm Hayward APRN [id number] PCP - General 09/21/23 documented as of this encounter
--- OUTSIDE RECORDS SUMMARY | 2025-07-10 11:44 | XMS_ITS | Encounter Summary ---
Author Organization [facility] Address [address] [id number] Care Team Providers Care Yoker Name Role Phone Malcolm Hayward APRN Primary Care Provider [phone] Reason for Visit * Reason Onset Date Comments HCN Clinical Concern/Question 06/12/2025 Encounter Details Date Type Department Care Team (Late st Contact Info) Description 06/12/2025 Telephone [place] [facility] [address] [facility] 5th Floor [address], [address] [place] [address] Mary Vicente MD [address] [facility] [address] [place] [address] HCN Clinical Concern/Question Social History [...] in a mcfp (including now)? No 04/28/2025 [facility] Utilities Answer Date Recorded In the [...] about it , labreport Best contact number: [phone] (mobile) Optimal time of day to reach [...] Description 08/10/2025 11:20 AM EST Office Visit [facility] [address] [facility] 5th Floor [address], [address] [place] [address] Mary Vicente MD [address] [facility] [address] [place] [address] documented as of this encounter [...] documented as of this encounter Care Teams Yoker Relationship Specialty Start Date End Date Malcolm Hayward APRN [id number] PCP - General 09/21/23 documented as of this encounter
--- OUTSIDE RECORDS SUMMARY | 2025-07-10 11:44 | XMS_ITS | Clinical Summary ---
Author Organization [facility] Address [address] [place] [address] Phone Care Team Providers Care Joint Supervisor Name Role Phone Allen RUSH, Emanuel Maurice Unavailable [phone] TRELL BECKWITH MD Unavailable [phone] PAWZI HENRY DPM Unavailable [phone] Petty Frost PA-C Primary Care Provider [phone] Reason for Visit and Chief Complaint Epidural Steroid Injection Problems Includes: Problems addressed during this encounter and other active Problems All Visits Onset Date Date of Diagnosis Resolved Date Provider Condition Status Lower Back Pain 04/22/2019 04/22/2019 Emanuel Villa MD Active Last Documented On 5 1:39AM ; [facility] Bone Pain in the Heel 06/27/2014 06/27/2014 Randy Booth DPM Active Last Documented On 5 1:37AM ; [facility] Plan of Treatment No [...] On 2 3:17PM By Estrellita Vázquez ; [facility] Metoclopramide HCl 10 MG Oral Tablet 04/21/2019 Prov ider: Chintan Aguayo MD Diagnosis: Last Documented On 9 4:08PM By Daniel Mo ; [facility] Atorvastatin Calcium 40 MG Oral Tablet 04/21/2019 Pr ovider: Diagnosis: Last Documented On 9 4:08PM By Daniel Mo ; [facility] Furosemide 40 MG Oral Tablet 04/21/2019 Provider: Diagnosis: Last Documented On 9 4:09PM By Daniel Mo ; [facility], [facility] Potassium Chloride 20 MEQ Oral Packet 04/21/2019 Pro vider: Diagnosis: Last Documented On 9 4:09PM By Daniel Mo ; [facility], [facility] Omeprazole 40 MG Oral Capsul e Delayed Release 04/21/2019 Provider: Chintan Aguayo MD Diagnosis: Last Documented On 9 4:10PM By Daniel Mo ; [facility] ARIPiprazole 5 MG Oral Tablet 04/14/2019 Provider: Diagnosis: Last Documented On 9 4:10PM By Daniel Mo ; [facility] Venlafaxine HCl ER 150 MG Or al Capsule Extended Release 24 Hour 03/31/2019 Provider: Diagnosis: Last Documented On 9 4:10PM By Daniel Mo ; [facility] metFORMIN HCl 1000 MG Oral Tablet 03/10/2019 Provide r: Chintan Aguayo MD Diagnosis: Last Documented On 9 4:10PM By Daniel Mo ; [facility] Lisinopril-hydroCHLOROthiazi de 20-25 MG Oral Tablet 03/04/2019 Provider: TRELL BECKWITH MD Diagnosis: Last Documented On 9 4:10PM By Daniel Mo ; [facility] Medications Administered Includes: Administered Medications from this encounter No Administered Medications Recorded Results Includes: Results discussed during this encounter No Results Recorded For Specified Dates History of Present Illness Includes: History of Present Illness from this encounter No History of Present Illness Recorded Social History Description Last Updated Sex - Male 11/02/2022 Last Documented On 3 1:37PM ; [facility] Smoking Status Unknown Medical History [...] Includes: Active Allergies No Known Allergies Care Joint Supervisor Name (Identifier) Role/Relation Location/Telecom Last Documented By Emanuel Villa MD ([id number]) Assigned practitioner (occupation) [address] [place], [place], , [address] tel:[phone] Last Documented On 11/02/2022 1:37PM ; [facility] TRELL BECKWITH MD ([id number]) [facility] [[email or web address]], [address] tel:[phone] Last Documented On 06/27/2014 1:01PM ; [facility] ZI SUE DPM ([id number]) [address] [place] [address], , [address] tel:[phone] Last Documented On 06/27/2014 1:01PM ; [facility] Petty Frost PA-C ([id number]) Primary care physician (occupation) [address] [place] [address], , [address] tel:[phone] Last Documented On 11/02/2022 1:37PM ; [facility], [facility] Encounters Encounter Provider Location (Healthcare Service Location) Date Check-In Time Check-Out Time Diagnosis Encounter Disposition Epidural Steroid Injection Emanuel Villa MD 2021 4:24PM 11:59PM Payer Includes: Active Insurance Policies Plan Name (Payer ID) Coverage Type Member ID Group # Subscriber (ID) Relationship Effective Dates 1 - [facility] ([id number]) [id number] Gonzalo Russell Self 03/13/2022 - Unknown Last Documented On 11:04AM ; [facility]
--- OUTSIDE RECORDS SUMMARY | 2025-07-10 11:44 | XMS_ITS | Encounter Summary ---
Author Organization [facility] Address [address] [id number] Care Team Providers Care Audio Visual Aids Director Name Role Phone Malcolm Hayward APRN Primary Care Provider [phone] Reason for Visit * Reason Comments Med Refill Encounter Details Date Type Department Care Team (Late st Contact Info) Description 07/07/2024 Refill [facility] [address] [place] [address] Mayra Torres PA [address] [address] Type 2 diabetes mellitus [...] Description 08/10/2025 11:20 AM EST Office Visit [facility] [address] [facility] 5th Floor [address], [address] [place] [address] Mary Vicente MD [address] [facility] [address] [place] [address] documented as of this encounter [...] documented as of this encounter Care Teams Audio Visual Aids Director Relationship Specialty Start Date End Date Malcolm Hayward APRN [id number] PCP - General 09/21/23 documented as of this encounter
--- OUTSIDE RECORDS SUMMARY | 2025-07-10 11:44 | XMS_ITS | Encounter Summary ---
Author Organization [facility] Address [address] [place] [address] Care Team Providers Care Quantitative Associate Name Role Phone Malcolm Hayward APRN Primary Care Provider [phone] Encounter Details Date Type Department Care Team [...] in a assisted (including now)? No 04/28/2025 [facility] Utilities Answer Date Recorded In [...] as of this encounter Functional Status * Communicable Disease Screening Question Answer Date of Assessment Author Have you been in contact wit h someone who was sick? No / Unsure 06/22/2025 1:31 PM Koffi Rendon Do you have any of the follo wing new or worsening symptoms? None of these 06/22/2025 1:31 PM Koffi Rendon * Travel Screening Question Answer Date of Assessment Author Have you traveled [place] or domestically in the last month? No 06/22/2025 1:31 PM Koffi Rendon documented as of this encounter Mental Status * Communicable Disease Screening Question Answer Entry Date Author Have you been in contact wit h someone who was sick? No / Unsure 06/22/2025 1:31 PM Koffi Rendon Do you have any of the follo wing new or worsening symptoms? None of these 06/22/2025 1:31 PM Koffi Rendon * Travel Screening Question Answer Entry Date Author Have you traveled [place] or domestically in the last month? No 06/22/2025 1:31 PM EST Koffi Mackay documented in this encounter Plan of Treatment Upcoming Encounters Date Type Department Care Team (Late st Contact Info) Description 08/10/2025 11:20 AM EST Office Visit [place] [facility] [address] [facility] 5th Floor [address], [address] [place] [address] Mary Vicente MD [address] [facility] [address] [place] [address] documented as of this encounter [...] documented as of this encounter Care Teams Quantitative Associate Relationship Specialty Start Date End Date Malcolm Hayward APRN [id number] PCP - General 09/21/23 documented as of this encounter
--- OUTSIDE RECORDS SUMMARY | 2025-07-10 11:44 | XMS_ITS | Clinical Summary ---
Author Organization [facility] Address [address] [place] [address] Phone Care Team Providers Care Histology Supervisor Name Role Phone Allen RUSH, Emanuel Maurice Unavailable [phone] TRELL BECKWITH MD Unavailable [phone] PAWZI HENRY DPM Unavailable [phone] Petty Frost PA-C Primary Care Provider [phone] [...] Last Documented On 5 1:39AM ; [facility] Past Visits Onset Date Date of Diagnosis Resolved Date Provider Condition Status Bone Pain in the Heel 06/27/2014 06/27/2014 Randy Booth DPYehuda Active Last Documented On 5 1:37AM ; [facility] Plan of Treatment patient was seen by myself and Dr. Allen Foote PA-C. Patient will follow up 4 weeks after he tries interspinous process injection at L3-L4 no surgery would be needed for him - Last Documented On 11/02/2022 1:37PM ; [facility] Instructions to patient Instructions for patient See PCP for BP and Weight Last Documented On 2 2:52PM ; [facility] Intervention and counseling on cessation of tobacco use Last Documented On 2 3:18PM ; [facility] Lose weight Last Documented On 2 2:52PM ; [facility] Assessments Includes: Assessments from this encounter Findings L3-L4 spinous process edema - Last Documented On 11/02/2022 1:37PM ; [facility] Instructions Includes: Instructions from this encounter Instructions to patient Instructions for patient See PCP for BP and Weight Last Documented On 2 2:52PM ; [facility] Intervention and counseling on cessation of tobacco use Last Documented On 2 3:18PM ; [facility] Lose weight Last Documented On 2 2:52PM ; [facility] Medical Equipment - Implanted Devices Includes: Current Devices No Medical Equipment Recorded Medications Includes: Medications discussed during this encounter and other current Medications Current Medications (continue as prescribed) Xarelto 20 MG Oral Tablet 11/16/2021 Provider: Diagnosis: Last Documented On 2 3:17PM By Estrellita Vázquez ; [facility] Metoclopramide HCl 10 MG Oral Tablet 04/21/2019 Prov ider: Chintan Aguayo MD Diagnosis: Last Documented On 9 4:08PM By Daniel Mo ; [facility] Atorvastatin Calcium 40 MG Oral Tablet 04/21/2019 Pr ovider: Diagnosis: Last Documented On 9 4:08PM By Daniel Mo ; [facility] Furosemide 40 MG Oral Tablet 04/21/2019 Provider: Diagnosis: Last Documented On 9 4:09PM By Daniel Mo ; [facility] Potassium Chloride 20 MEQ Oral Packet 04/21/2019 Pro vider: Diagnosis: Last Documented On 9 4:09PM By Daniel Mo ; [facility] Omeprazole 40 MG Oral Capsul e Delayed Release 04/21/2019 Provider: Chintan Aguayo MD Diagnosis: Last Documented On 9 4:10PM By Daniel Mo ; [facility] ARIPiprazole 5 MG Oral Tablet 04/14/2019 Provider: Diagnosis: Last Documented On 9 4:10PM By Daniel Mo ; [facility] Venlafaxine HCl ER 150 MG Or al Capsule Extended Release 24 Hour 03/31/2019 Provider: Diagnosis: Last Documented On 9 4:10PM By Daniel Mo ; [facility] metFORMIN HCl 1000 MG Oral Tablet 03/10/2019 Provide r: Chintan Aguayo MD Diagnosis: Last Documented On 9 4:10PM By Daniel Mo ; [facility] Lisinopril-hydroCHLOROthiazi de 20-25 MG Oral Tablet 03/04/2019 Provider: TRELL BECKWITH MD Diagnosis: Last Documented On 9 4:10PM By Daniel Mo ; [facility] Past Medications on file Diclofenac Potassium 50 MG O R TABS 06/27/2014 - 07/27/2014 Provider: Randy DUMONT Diagnosis: be Last Documented On 4 1:34PM By Isa Avendano ; [facility] Medications Administered Includes: Administered Medications from this encounter No Administered Medications Recorded Vital Signs Includes: Vital Signs from this encounter Vital Name 12/12/2021 02:53P Blood Pressure Sitting (mmHg) 142/92 Pulse Rate-Sitting (bpm) 89 Height (in) 72 Weight (lb) 498 Body Mass Index (kg/m2) 67.5 Body Surface Area (m2) 3.1 Note: mg Last Documented: On 12/12/2021 3:18PM ; [facility] Results Includes: Results discussed during this encounter [...] Documented On 3 1:37PM ; [facility] Unemployed 12/12/2021 Last Documented On 3 1:37PM ; [facility] Tobacco use 06/27/2014 Last Documented On 2 2:52PM ; [facility] Smoking status : Current everyday smoker 06/27/2014 Last Documented On 2 2:52PM ; [facility] Alcohol use 06/27/2014 Last Documented On 2 2:52PM ; [facility] Current smoker 06/27/2014 Last Documented On 2 2:52PM ; [facility] No caffeine use 06/27/2014 Last Documented On 2 2:52PM ; [facility] No recent change in diet 06/27/2014 Last Documented On 2 2:52PM ; [facility] Not exercising regularly 06/27/2014 Last Documented On 2 2:52PM ; [facility] Not using drugs 06/27/2014 Last Documented On 2 2:52PM ; [facility] Sex - Male 11/02/2022 Last Documented On 3 1:37PM ; [facility] Procedures and Surgical History Includes: Procedures from this encounter Procedures Code Diagnosis Performing Provider Service L ocation Service Date intervention and counseling on cessation of tobacco use 4000F Last Documented On 2 3:18PM ; [facility] pharmacologic therapy for cessation of tobacco u se 4001F Last Documented On 2 2:52PM ; [facility] use of tobacco assessment performed 1000F Last Documented On 2 3:18PM ; [facility] no influenza immunization patient refuse d Last Documented On 2 3:18PM ; [facility] follow-up visit in one month with PCP fo r elevated BP Last Documented On 2 3:18PM ; [facility] Medical History Includes: Medical History addressed during this encounter Description Last Updated No recent immunization for flu 2 Last Documented On 3 1:37PM ; [facility] No recent immunization for pneumococcal pneumonia 12/12/2021 Last Documented On 3 1:37PM ; [facility] Intermittent hypertension 04/22/2019 Last Documented On 2 2:52PM ; [facility] History of depression 04/22/2019 Last Documented On 2 2:52PM ; [facility] gall bladder, wisdom teeth 06/27/2014 Last Documented On 2 2:52PM ; [facility] Arthritic joint problems 06/27/2014 Last Documented On 2 2:52PM ; [facility] History of diabetes mellitus 06/27/2014 Last Documented On 2 2:52PM ; [facility] History of gastric ulcer 06/27/2014 Last Documented On 2 2:52PM ; [facility] Family History Includes: Family History addressed during this encounter Description Last Updated Family history of hypertension Last Documented On 2 2:52PM ; [facility] non-contributory 06/27/2014 Last Documented On 2 2:52PM ; [facility] Review of Systems Includes: Review [...] encounter Description No anxiety Last Documented On 2 2:52PM ; [facility] Physical Exam Includes: Physical Exam from this encounter Allergies Includes: Active Allergies No Known Allergies Care Histology Supervisor Name (Identifier) Role/Relation Location/Telecom Last Documented By Emanuel Villa MD ([id number]) Assigned practitioner (occupation) [address] [place] [address], , [address] tel:[phone] Last Documented On 11/02/2022 1:37PM ; [facility] TRELL BECKWITH MD ([id number]) [facility], [id number] tel:[phone] Last Documented On 06/27/2014 1:01PM ; [facility] ZI CHANG DPM ([id number]) [address] [place] [address], , [address] tel:[phone] Last Documented On 06/27/2014 1:01PM ; [facility] Petty Frost PA-C ([id number]) Primary care physician (occupation) [address] [place] [address], , [address] tel:[phone] Last Documented On 11/02/2022 1:37PM ; [facility] Encounters Encounter Provider Location (Healthcare Service Location) Date Check-In Time Check-Out Time Diagnosis Encounter Disposition Follow Up Emanuel Villa MD [facility] 2021 2:49PM 3:57PM Payer Includes: Active Insurance Policies Plan Name (Payer ID) Coverage Type Member ID Group # Subscriber (ID) Relationship Effective Dates 1 - [facility] ([id number]) [id number] Gonzalo Russell Self 03/13/2022 - Unknown Last Documented On 11:04AM ; [facility] Clinical Notes Includes: Clinical Notes from this encounter * Progress note Date Encounter Last Documented by 12/12/2021 Follow Up Last documented on 11/02/2022; 1:37 PM, Emanuel Villa MD; [facility] Active Problems & Conditions - Bone Pain [...] Care Team - ZI CHANG DPM - Inspector Balance Wheel Motion - TRELL BECKWITH MD
--- OUTSIDE RECORDS SUMMARY | 2025-07-10 11:47 | XMS_ITS | Encounter Summary ---
Author Organization [facility] Address [address] [place] [address] Care Team Providers Care Product Safety And Standards Engineer Name Role Phone Malcolm Hayward APRN Primary Care Provider [phone] Encounter Details Date Type Department Care Team [...] in a half-way (including now)? No 04/28/2025 [facility] [...] or domestically in the last month? No 05/24/2025 9:55 AM EST Mycha rt, Generic documented as of this encounter Mental Status * Travel Screening Question Answer Entry Date Author Have you traveled [place] or domestically in the last month? No 05/24/2025 9:55 AM EST Mycha rt, Generic documented in this encounter Plan of Treatment Upcoming Encounters Date Type Department Care Team (Late st Contact Info) Description 08/10/2025 11:20 AM EST Office Visit [place] [facility] [address] [facility] 5th Floor [address] [place] [address] Mary Vicente MD [address] [facility] [address] [place] [address] documented as of this encounter [...] as of this encounter Care Teams Product Safety And Standards Engineer Relationship Specialty Start Date End Date Malcolm Hayward APRN [id number] PCP - General 09/21/23 documented as of this encounter
--- OUTSIDE RECORDS SUMMARY | 2025-07-10 11:47 | XMS_ITS | Encounter Summary ---
Author Organization [facility] Address [address] [place] [address] Care Team Providers Care Dust Mixer Name Role Phone Malcolm Hayward APRN Primary Care Provider Encounter Details Date Type Department Care Team [...] any time in the past 12 m [facility], were you homeless or living in a correction (including now)? No 04/28/2025 [facility] Utilities Answer Date Recorded In the past [...] Description 08/10/2025 11:20 AM EST Office Visit [place] [facility] [address] [facility] 5th Floor Wing [address], [address] [place] [address] Mary Vicente MD [address] [facility] [address] [place] [address] documented as of this encounter Visit Diagnoses [...] documented as of this encounter Care Teams Dust Mixer Relationship Specialty Start Date End Date Malcolm Hayward APRN [id number] PCP - General 09/21/23 documented as of this encounter
--- OUTSIDE RECORDS SUMMARY | 2025-07-10 11:47 | XMS_ITS | Encounter Summary ---
Author Organization [facility] Address [address] [place] [address] Care Team Providers Care Silk Screen Printer Name Role Phone Malcolm Hayward APRN Primary Care Provider [phone] Encounter Details Date Type Department Care Team (Late st Contact Info) Description 05/24/2025 Telephone Vascular Surgery [address] [place] [address] Rohith Ramires, MEDICAL EDUCATION SPECIALIST None Social History Tobacco Use Types Packs/Day [...] in a snf (including now)? No 04/28/2025 [facility] Utilities Answer Date Recorded In the [...] [place] [facility] [address] [facility] 5th Floor Wing [address], [address] [place] [address] Mary Vicente MD [address] [facility] [address] [place] [address] documented as of this encounter [...] documented as of this encounter Care Teams Silk Screen Printer Relationship Specialty Start Date End Date Malcolm Hayward APRN [id number] PCP - General 09/21/23 documented as of this encounter
--- OUTSIDE RECORDS SUMMARY | 2025-07-10 11:47 | XMS_ITS | Encounter Summary ---
Author Organization Healthcare Address [address] [place] [id number] Care Team Providers Care Tank Truck Engine Mechanic Name Role Phone Malcolm Hayward APRN Primary Care Provider [phone] Reason for Visit * Reason Onset Date Comments HCN Clinical Concern/Question 05/19/2025 HCN Status Update Call #1 05/19/2025 Encounter Details Date Type Department Care Team (Late st Contact Info) Description 05/19/2025 Telephone [place] [facility] [address] [facility] 5th Floor Wing [address], [address] [place] [address] Sheila Marcano, BLAS [address] [facility] [address] [place] [address] HCN Clinical Concern/Question; HCN Status [...] any time in the past 12 m [facility], were you homeless or living in a group home (including now)? 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 Praveen denied any other needs or concerns. [...] the initial request. Best contact number: Other: [phone] Optimal time of day to reach caller: [...] will receive notification of the communication/outcome via [employer]. * Telephone Encounter - Diane Daniels - 05/19/2025 2:11 PM EST Clinical Concern/Question Reason for Call: Praveen from [facility] is calling to see if the patient could get a off loading boot so he could be moved to their facility or if he has to wait until his next carlos a with the clinic on 05/30/25. Please call praveen back with info. Thank you Best contact number: Other: [phone] Optimal time of day to reach caller: [...] [place] [facility] [address] 5th Floor [address] [place] [address] Mary Vicente MD [address] [facility] [address] [place] [address] documented as of this encounter [...] documented as of this encounter Care Teams Tank Truck Engine Mechanic Relationship Specialty Start Date End Date Malcolm Hayward APRN [id number] PCP - General 09/21/23 documented as of this encounter
--- OUTSIDE RECORDS SUMMARY | 2025-07-10 11:47 | XMS_ITS | Encounter Summary ---
Author Organization [facility] Address [address] [place] [id number] Care Team Providers Care Etl Programmer Name Role Phone Malcolm Hayward APRN Primary Care Provider [phone] Encounter Details Date Type Department Care Team ([facility] st Contact Info) Description 05/29/2025 Telephone [facility] [address] [place] [phone] Pcp, No [address] [place] [address] Social History Tobacco Use Types Packs/Day Years [...] in a jail (including now)? No 04/28/2025 [facility] Utilities Answer Date Recorded In [...] Please call with updates Best contact number: [phone] (mobile) Optimal time of day to reach caller: ANYTIME Additional comments/information from caller: None Note: Please do not reply to this message. Follow-up communication and further actions as a result of this message need to be communicated with the patient directly, if the patient is not active onMyChart. If the patient is active on MyChart, they will receive notification of the communication/outcome via [employer]. documented in this encounter Plan of Treatment Upcoming Encounters Date Type Department Care Team (Late st Contact Info) Description 08/10/2025 11:20 AM EST Office Visit [place] [facility] [address] 5th Floor [address] [place] [address] Mary Vicente MD [address] [facility] [address] [place] [address] documented as of this encounter [...] documented as of this encounter Care Teams Etl Programmer Relationship Specialty Start Date End Date Malcolm Hayward APRN [id number] PCP - General 09/21/23 documented as of this encounter
--- OUTSIDE RECORDS SUMMARY | 2025-07-10 11:47 | XMS_ITS | Encounter Summary ---
Author Organization [facility] Address [address] [place] [address] Care Team Providers Care Ship Liner Name Role Phone Malcolm Hayward APRN Primary Care Provider [phone] Encounter Details Date Type Department Care Team [...] any time in the past 12 m [facility], were you homeless or living in a nursing home (including now)? No 04/28/2025 [facility] Utilities Answer Date Recorded In [...] Description 08/10/2025 11:20 AM EST Office Visit [place] [facility] [address] [facility] 5th Floor [address], [address] [place] [address] Mary Vicente MD [address] [facility] [address] [place] [address] documented as of this encounter Visit Diagnoses [...] documented as of this encounter Care Teams Ship Liner Relationship Specialty Start Date End Date Malcolm Hayward APRN [id number] PCP - General 09/21/23 documented as of this encounter
--- OUTSIDE RECORDS SUMMARY | 2025-07-10 11:48 | XMS_ITS | Encounter Summary ---
Author Organization Healthcare Address [address] [place] [id number] Care Team Providers Care Pharmacy Technician Per Diem Name Role Phone Malcolm Hayward APRN Primary Care Provider [phone] Reason for Visit * Reason Onset Date Comments HCN - Patient Message 05/24/2025 Call pankaj morrissey HCN Status Update Call #2 05/24/2025 Encounter Details Date Type Department Care Team ([place] st Contact Info) Description 05/24/2025 Telephone [place] [facility] [address] [facility] 5th Floor Wing [address], [address] [place] [address] Sheila Marcano, PA [address] [facility] [address] [place] [address] HCN - Patient Message (Call [...] in a chcf (including now)? No 04/28/2025 [facility] Utilities Answer Date Recorded In [...] of the initial request. Best contact number: [phone] Optimal time of day to reach caller: [...] optimal time of day to reach caller: [phone] Note: Please do not reply to this [...] Description 08/10/2025 11:20 AM EST Office Visit [facility] [address] 5th Floor [address] [place] [address] Mary Vicente MD [address] [facility] [address] [place] [address] documented as of this encounter [...] of this encounter Care Teams Pharmacy Technician Per Diem Relationship Specialty Start Date End Date Malcolm Hayward APRN [id number] PCP - General 09/21/23 documented as of this encounter"
--- OUTSIDE RECORDS SUMMARY | 2025-07-10 11:48 | XMS_ITS | Encounter Summary ---
Author Organization Healthcare Address [address] [place] [id number] Care Team Providers Care Metal Spraying Machine Operator Name Role Phone Malcolm Hayward APRN Primary Care Provider [phone] Encounter Details Date Type Department Care Team (Late st Contact Info) Description 05/26/2025 Telephone Wound Care [address] [place] [address] Sheila Marcano, PA [address] [place] [address] Social History Tobacco Use Types [...] any time in the past 12 m [facility], were you homeless or living in a detention (including now)? No 04/28/2025 [facility] Utilities Answer Date Recorded In the [...] a culture done of his wound at [facility] and it came back positive for pseudomonas aeruginosa. She said [facility] said oral abx are not going to work, so she is wondering what she needs to do? Get in touch w/ ID, bring him to ED to be admittedfor IV abx? Asking for a call back. Thanks! Best contact number: Other: [phone] Optimal time of day to reach caller: [...] Description 08/10/2025 11:20 AM EST Office Visit [facility] [address] [facility] 5th Floor [address] [place] [address] Mary Vicente MD [address] [facility] [address] [place] [address] documented as of this [...] as of this encounter Care Teams Metal Spraying Machine Operator Relationship Specialty Start Date End Date Malcolm Hayward APRN [id number] PCP - General 09/21/23 documented as of this encounter
--- OUTSIDE RECORDS SUMMARY | 2025-07-10 11:48 | XMS_ITS | Encounter Summary ---
Author Organization [facility] Address [address] [id number] Care Team Providers Care Emergency Department Aide Name Role Phone Malcolm Hayward PROCESS CONTROL TECHNICIAN Primary Care Provider [phone] Reason for Visit * Reason Comments Med Refill Encounter Details Date Type Department Care Team (Late st Contact Info) Description 12/02/2024 Refill [place] [facility] Endocrinology [address] [place] [address] Divine Archer, PROCESS CONTROL TECHNICIAN [address] [facility] [address] [place] [address] Social History Tobacco Use Types [...] Description 08/10/2025 11:20 AM EST Office Visit [facility] [address] [facility] [address] Floor [address] [place] [address] Mary Vicente MD [address] [facility] [address] [place] [address] documented as of [...] documented as of this encounter Care Teams Emergency Department Aide Relationship Specialty Start Date End Date Malcolm Hayward APRN [id number] PCP - General 09/21/23 documented as of this encounter
--- OUTSIDE RECORDS SUMMARY | 2025-07-10 11:48 | XMS_ITS | Clinical Summary ---
Author Organization [facility] Address [address] [place] [address] Care Team Providers Care Sales Coach Name Role Phone Malcolm Hayward APRN Primary Care Provider [phone] Allergies Active Allergy Reactions Criticality Noted Date [...] 01/11/20 25 Active Insulin Pen Needle (Pen [place]) 31G X 5 MM [facility] USE TO INJECT INSULIN 3 [...] Active Continuous Glucose Sensor (Dexcom G7 Sensor) [facility] 12/11/20 25 Active HYDROcodone-acetam inophen ([place]) 10-325 MG tablet TAKE ONE TABLET BY [...] Type Department Care Team Description 07/03/2025 Telephone [facility] [address] [place] [address], [address] [phone] Mary Vicente MD HCN - Patient Message (reschedule) 06/22/2025 1:40 PM EST Office Visit [facility] [address], [address] [phone] Mary Vicente MD QUINN (obstructive sleep apnea) [...] 06/16/2025 Travel 06/13/2025 Telephone Vascular Surgery [address] [place] [address] Rohith Ramires, RN 06/12/2025 Telephone [facility] [address] Wing [address], [address] [place] [phone] Mary Vicente MD 06/12/2025 Telephone [facility] [address], [address] [place] [phone] Mary Vicente MD HCN Clinical Concern/Question 05/29/2025 Telephone [facility] [address] [place] [phone] Pcp, No 05/26/2025 Telephone Wound Care [address] [place] [address] Sheila Marcano PA 05/24/2025 Telephone [facility] [address], [address] [place] [phone] Sheila Marcano PA HCN - Patient Message (Call request ); HCN Status Update Call #2 05/24/2025 Telephone Vascular Surgery [address] [place] [address] Rohith Ramires, LOLA 05/24/2025 Travel 05/19/2025 Telephone [facility] [address], [address] [place] [phone] Sheila Marcano PA HCN Clinical Concern/Question; HCN Status Update Call #1 05/18/2025 Travel 05/17/2025 Travel 05/01/2025 7:30 AM EDT - 05/01/2025 8:50 AM EDT Surgery [facility] [address] [place] [address] Mary Vicente MD AMPUTATION,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 4th 05/01/2025 7:28 AM EDT Anesthesia Event [facility] [address] [place] [address] Gilberto Rivera MD Ford, Richard F, MD 05/01/2025 Orders Only External Location [address] [place] [address] Provider, External 05/01/2025 Travel 04/28/2025 Travel 04/27/2025 9:29 PM EDT - 05/18/2025 11:48 AM EST Hospital Encounter [facility]patient [address] [place] [address] Jessa Law MD Chapman, Man Machado, Greg [...] long-term current use of insulin Discharge Disposition: Halfway Facility 04/27/2025 Travel 04/19/2025 [facility] Endocrinology [address] [place] [phone] Divine Archer, ADALGISA Type 2 diabetes mellitus [...] in a alf (including now)? No 04/28/2025 [facility] Utilities Answer Date Recorded In the past 12 months has th e [employer], gas, oil, or water company threatened to [...] S [facility] 5th Floor Wing D, [address] [place] [address] Mary Vicente MD [address] [facility] [address] [place] [address] Health Maintenance Due Date Last Done Comments [facility]-Medicare Annual Wellness (AWV) 1977 [facility]-/Child/Adol SDOH Screenings 1977 Diabetes: Dental Exam 1987 [facility]-DTaP,Tdap,and Td Vaccines (1 - Tdap) 1996 [facility]-Hepatitis B Vaccines (1 of 3 - 19+ 3-dose series) 1996 CT Colonography 2022 Colonoscopy 2022 FIT-DNA 2022 FIT 2022 FOBT 2022 Sigmoidoscopy 2022 [facility]-Colorectal Cancer Screening 2022 EMD-HVQED-50 Vaccine (3 - 2024- season) 2025 02/22/2021, [...] Procedure Name Priority Date/Time Associated Diagnosis Comments [facility] Routine 06/22/2025 2:05 PM EST POCT GLUCOSE [...] * DME Order (06/22/2025 2:05 PM EST) [facility] SUP[facility]IER [facility] DME [facility] SUPPLIER PHONE [facility] DME [facility] DELIVERY STATUS Delivery Successful [facility] D[facility] DELIVERY NOTE [facility] DME [facility] REQUESTED DELIVERY DATE 06/22/2025 [facility] ACTUAL DELIVERY DATE 06/22/2025 [facility] DME [facility] ITEM DESCRIPTION Adaptic Petrolatum Emulsion Non-Adherent Dressing, 3 x 8 in., Box (24) [facility] DME Comment: Qty: 1 Substitution Status: In the event of product backorder, discontinuation, or patient preference, substitutions are permitted for wound care products on this order. [facility] ITEM DESCRIPTION [employer] Sterile Abdominal Pads, 5 x 9 in., Box (36) [facility] Comment: Qty: 1 Substitution Status: In the event of product backorder, discontinuation, or patient preference, substitutions are permitted for wound care products on this order. [facility] ITEM DESCRIPTION [employer] Fluff Gauze Bandage Roll, Sterile, 6-ply, 4.5 in. x 4.1 yd., Each (1) [facility] Comment: Qty: 30 Substitution Status: In the event of product backorder, discontinuation, or patient preference, substitutions are permitted for wound care products on this order. [facility] IT[facility] DES[facility] Jose-Band LF Latex Free Elastic Bandage with Hook and Loop Closure, Wound Care Treatment, NS, 3 in. x 5 yd., Box (10) [facility] Comment: Qty: 2 Substitution Status: In the event of product backorder, discontinuation, or patient preference, substitutions are permitted for wound care products on this order. 06/22/2025 2:05 PM EST us Mary STEVENS ORDERABLES Final Result [facility] * (ABNORMAL) POCT glucose meter (05/18/2025 8:09 AM EST) Only the most recent of96 resultswithin the time period is included. Pathologist [facility] POCT Glucose 124(H) 74 - 99 mg/dL 05/18/2025 8:11 AM EST [email or web address] Comment:Accuracy of a glucos e result [...] for testing. Comment 05/18/2025 8:11 AM EST [facility] Retail Warehouse Supervisor ID Char Hinojosa 05/18/2025 8:11 AM EST [email or web address] Device ID [id number] 05/18/2025 8:11 AM EST [facility] Specimen Type POC Capillary 05/18/2025 8:11 AM EST [facility] Blood Capillary blood specimen / Unknown 05/18/2025 8:09 AM EST 05/18/2025 8:11 AM EST Wily Goyal DO LAB POINT OF CARE TE ST DOCKED DEVICE UNSOLICITED RESULTS Final Result Performing Organization Address City/State/[facility] Co de Phone Number [facility] [address] [place] [address] * ECHO, ADULT TRANSTHORACIC COMPLETE W/ CONTRAST (05/17/2025 9:51 AM EST) Pathologist [facility] BSA 3.30 m2 HANK ISCV Height 182.9 [...] cm/s HANK ISCV MV E/A 1.6 cm/s HAKN ISCV LA dimension 41 mm HANK ISCV [...] Ao Diam 37 mm HANK ISCV PA NE(ACCEL) 24.6 mmHg HANK ISCV LV mean PG [...] is no recent study available for direct sawr-qu-ngup comparison. Left Ventricle The left ventricle is [...] is no recent study available for direct osao-jm-yhhs comparison. [facility] Jay Jay DO CV ECHO PROCEDURES Final Result * ECG Adult (05/16/2025 3:33 PM EST) Only the most recent of6 resultswithin the time period is included. EKG DIAGNOSIS CLASS Abnormal MUSE ECG Ventricular Rate 58 BPM MUSE ECG Atrial Rate 58 BPM MUSE ECG NE Interval 184 ms MUSE ECG QRSD Interval 158 ms MUSE ECG QT Interval 496 ms MUSE ECG QTC Interval 486 ms MUSE ECG P Soper 30 degrees MUSE ECG R Soper -35 degrees MUSE ECG T Wave Soper -5 degrees MUSE ECG Diagnosis Sinus bradycardia [...] 3:33 PM EST 05/18/2025 12:15 AM EST [facility] Jay Jay DO ECG ORDERABLES Final Result MUSE ECG * (ABNORMAL) CBC and Differential (05/16/2025 4:08 AM EST) Only the most recent of12 resultswithin the time period is included. WBC Count 7.97 3.70 - 10.30 10*3/uL LAB HEMATOLOGY METHOD 05/16/2025 4:26 AM EST [facility] RBC Count 4.27(L) 4.60 - 6.10 10*6/uL LAB HEMATOLOGY METHOD 05/16/2025 4:26 AM [facility] HGB 9.5(L) 13.7 - 17.5 g/dL LAB HEMATOLOGY METHOD 05/16/2025 4:26 AM [facility] HCT 31.6(L) 40.0 - 51.0 % LAB HEMATOLOGY METHOD 05/16/2025 4:26 AM [facility] Platelet Count 264 155 - 369 10*3/uL LAB HEMATOLOGY METHOD 05/16/2025 4:26 AM [facility] MCV 74(L) 79 - 98 fL LAB HEMATOLOGY METHOD 05/16/2025 4:26 AM [facility] MCH 22.2(L) 26.0 - 32.0 pg LAB HEMATOLOGY METHOD 05/16/2025 4:26 AM [facility] MCHC 30.1(L) 30.7 - 35.5 g/dL LAB HEMATOLOGY METHOD 05/16/2025 4:26 AM [facility] RDW 17.9(H) 11.5 - 14.5 % LAB HEMATOLOGY METHOD 05/16/2025 4:26 AM [facility] MPV 9.2 8.8 - 12.5 fL LAB HEMATOLOGY METHOD 05/16/2025 4:26 AM [facility] nRBC 0.0 <=0.0 per 100 WBCs LAB HEMATOLOGY METHOD 05/16/2025 4:26 AM [facility] Differential Type Automated LAB HEMATOLOGY METHOD 05/16/2025 4:26 AM [facility] Neutrophils % 67 % LAB HEMATOLOGY METHOD 05/16/2025 4:26 AM [facility] Lymphocytes % 16 % LAB HEMATOLOGY METHOD 05/16/2025 4:26 AM [facility] Monocytes % 12 % LAB HEMATOLOGY METHOD 05/16/2025 4:26 AM [facility] Eosinophils % 3 % LAB HEMATOLOGY METHOD 05/16/2025 4:26 AM [facility] Basophils % 1 % LAB HEMATOLOGY METHOD 05/16/2025 4:26 AM [facility] Immature Granulocytes % 1 % LAB HEMATOLOGY METHOD 05/16/2025 4:26 AM [facility] Neutrophils Absolute 5.39 1.60 - 6.10 10*3/uL LAB HEMATOLOGY METHOD 05/16/2025 4:26 AM EST [facility] Lymphocytes Absolute 1.30 1.20 - 3.90 10*3/uL LAB HEMATOLOGY METHOD 05/16/2025 4:26 AM EST [facility] Monocytes Absolute 0.93(H) 0.30 - 0.90 10*3/uL LAB HEMATOLOGY METHOD 05/16/2025 4:26 AM EST [facility] Eosinophils Absolute 0.26 0.00 - 0.50 10*3/uL LAB HEMATOLOGY METHOD 05/16/2025 4:26 AM EST [facility] Basophils Absolute 0.05 0.00 - 0.10 10*3/uL LAB HEMATOLOGY METHOD 05/16/2025 4:26 AM EST [facility] Immature Granulocytes Absolute 0.04 0.00 - 0.06 10*3/uL LAB HEMATOLOGY METHOD 05/16/2025 4:26 AM EST [facility] Blood Venous blood specimen / Unknown Venipuncture / Unknown 05/16/2025 4:08 AM EST 05/16/2025 4:17 AM EST Narrative [facility] - 05/16/2025 4:26 AM EST Therapeutic decision making should be based on absolute values, rather than percentages. us Selin Lee MD LAB BLOOD ORDERABLES Final Re sult Performing Organization Address City/[facility]/ZIP Co de Phone Number [facility] [address] [place] [address] * Phosphorus, Plasma (05/16/2025 4:08 AM EST) Only the most recent of11 resultswithin the time period is included. Phosphorus, Plasma 3.7 2.5 - 4.5 mg/dL 05/16/2025 4:48 AM EST [facility] Blood Venous blood specimen / Unknown Venipuncture / Unknown 05/16/2025 4:08 AM EST 05/16/2025 4:16 AM EST us Selin Lee MD LAB BLOOD ORDERABLES Final Re sult [facility] [address] [place] [address] * (ABNORMAL) Magnesium, Plasma (05/16/2025 4:08 AM EST) Only the most recent of13 resultswithin the time period is included. [facility] Magnesium, Plasma 1.8(L) 1.9 - 2.4 mg/dL 05/16/2025 4:48 AM EST [facility] Blood Venous blood specimen / Unknown Venipuncture / Unknown 05/16/2025 4:08 AM EST 05/16/2025 4:16 AM EST us Selin Lee MD LAB BLOOD ORDERABLES Final Re sult [facility] [address] [place] [address] * (ABNORMAL) Basic Metabolic Panel, Plasma (05/16/2025 4:08 AM EST) Only the most recent of12 resultswithin the time period is included. [facility] Glucose, Plasma 168(H) 74 - 99 mg/dL 05/16/2025 4:48 AM EST [facility] BUN, Plasma 19 7 - 21 mg/dL 05/16/2025 4:48 AM EST [facility] Creatinine, Plasma 0.86 0.70 - 1.20 mg/dL 05/16/2025 4:48 AM EST [facility] BUN/Creatinine Ratio 22 05/16/2025 4:48 AM EST [facility] Sodium, Plasma 131(L) 136 - 145 mmol/L 05/16/2025 4:48 AM EST [facility] Potassium, Plasma 3.6 3.6 - 4.9 mmol/L 05/16/2025 4:48 AM EST [facility] Chloride, Plasma 88(L) 97 - 107 mmol/L 05/16/2025 4:48 AM EST [facility] CO2, Plasma 34(H) 22 - 29 mmol/L 05/16/2025 4:48 AM EST [facility] Anion Gap 9 6 - 16 mmol/L 05/16/2025 4:48 AM EST [facility] Total Calcium, Plasma 9.3 8.9 - 10.2 mg/dL 05/16/2025 4:48 AM EST [facility] eGFRcr 107.5 mL/min/1.7 3m*2 05/16/2025 4:48 AM EST [facility] Comment:Reported eGFRcr in m L/min/1.73m2 is based the CKD-EPI 2020 equation that does not use a race coefficient. Blood Venous blood specimen / Unknown Venipuncture / Unknown 05/16/2025 4:08 AM EST 05/16/2025 4:16 AM EST Selin Lee MD LAB BLOOD ORDERABLES Final Re sult Performing Organization Address City/[facility]/ZIP Co de Phone Number [facility] [address] [place] [address] * PSA, diagnostic (05/06/2025 12:27 PM EDT) PSA, Diagnostic, Serum 0.03 0.00 - 2.50 ng/mL 05/06/2025 1:10 PM EDT [facility] Blood Venous blood specimen / Unknown Venipuncture / Unknown 05/06/2025 12:27 PM EDT 05/06/2025 12:33 PM EDT Narrative [facility] - 05/06/2025 1:10 PM EDT Performed by Bella electrochemiluminescent immunoassay which is standardized against the PSA [place] Reference Standard (WHO 96/670). Results obtained with different test methods or kits cannot be used interchangeably. Diane Guzman MD LAB BLOOD ORDERABLES Final Result Performing Organization Address City/[facility]/ZIP Co de Phone Number [facility] [address] [place] [address] * Creatine Kinase (CK), Total (05/03/2025 6:22 PM EDT) Only the most recent of4 resultswithin the time period is included. Creatine Kinase, Plasma 54 49 - 320 U/L 05/03/2025 7:13 PM EDT [facility] Blood Venous blood specimen / Unknown Venipuncture / Unknown 05/03/2025 6:22 PM EDT 05/03/2025 6:38 PM EDT us Diane Guzman MD LAB BLOOD ORDERABLES Final Result [facility] [address] [place] [address] * (ABNORMAL) Comprehensive metabolic panel (05/03/2025 6:22 PM EDT) Only the most recent of2 resultswithin the time period is included. Glucose, Plasma 290(H) 74 - 99 mg/dL 05/03/2025 7:13 PM EDT [facility] BUN, Plasma 14 7 - 21 mg/dL 05/03/2025 7:13 PM EDT [facility] Creatinine, Plasma 0.71 0.70 - 1.20 mg/dL 05/03/2025 7:13 PM EDT [facility] BUN/Creatinine Ratio 20 05/03/2025 7:13 PM EDT [facility] Sodium, Plasma 133(L) 136 - 145 mmol/L 05/03/2025 7:13 PM EDT [facility] Potassium, Plasma 3.6 3.6 - 4.9 mmol/L 05/03/2025 7:13 PM EDT [facility] Chloride, Plasma 87(L) 97 - 107 mmol/L 05/03/2025 7:13 PM EDT [facility] CO2, Plasma 37(H) 22 - 29 mmol/L 05/03/2025 7:13 PM EDT [facility] Anion Gap 9 6 - 16 mmol/L 05/03/2025 7:13 PM EDT [facility] Total Calcium, Plasma 9.4 8.9 - 10.2 mg/dL 05/03/2025 7:13 PM EDT [facility] Total Protein 8.0(H) 6.3 - 7.9 g/dL 05/03/2025 7:13 PM EDT [facility] Albumin, Plasma 3.6 3.5 - 5.2 g/dL 05/03/2025 7:13 PM EDT [facility] AST, Plasma 18 10 - 50 U/L 05/03/2025 7:13 PM EDT [facility] ALT, Plasma 12 10 - 50 U/L 05/03/2025 7:13 PM EDT [facility] Alkaline Phosphatase, Plasma 64 40 - 115 U/L 05/03/2025 7:13 PM EDT [facility] Total Bilirubin, Plasma 0.7 0.2 - 1.1 mg/dL 05/03/2025 7:13 PM EDT [facility] eGFRcr 113.9 mL/min/1.7 3m*2 05/03/2025 7:13 PM EDT [facility] Comment:Reported eGFRcr in m L/min/1.73m2 is based the CKD-EPI 2020 equation that does not use a race coefficient. Blood Venous blood specimen / Unknown Venipuncture / Unknown 05/03/2025 6:22 PM EDT 05/03/2025 6:38 PM EDT Diane Guzman MD LAB BLOOD ORDERABLES Final Result Performing Organization Address City/[facility] Co de Phone Number [facility] [address] [place] [address] * Hepatitis B Surface Antibody, Quantitative (05/03/2025 3:16 AM EDT) [facility] Hepatitis B Surface Antibody, Quantitative <8.00 NonReactiv e: <8, Grayzone: 8 - <12, Reactive: >= 12 mIU/mL 05/03/2025 4:28 AM EDT [facility] Comment: Nonreactive. Individual is considered not immune to HBV infection. Blood Venous blood specimen / Unknown Venipuncture / Unknown 05/03/2025 3:16 AM EDT 05/03/2025 3:24 AM EDT Diane Guzman MD LAB BLOOD ORDERABLES Final Result Performing Organization Address City/[facility]/ZIP Co de Phone Number [facility] [address] [place] [address] * Hepatitis A Antibody IgG (05/03/2025 3:16 AM EDT) Hepatitis A Antibody IgG Negative Negative 05/03/2025 4:28 AM EDT [facility] Blood Venous blood specimen / Unknown Venipuncture / Unknown 05/03/2025 3:16 AM EDT 05/03/2025 3:24 AM EDT us Diane Guzman MD LAB BLOOD ORDERABLES Final Result [facility] [address] [place] [address] * Hepatitis B Core Total Antibody IgG,IgM (05/03/2025 3:16 AM EDT) Pathologist [facility] Hepatitis B Core Total Antibody IgG,IgM Negative Negative 05/03/2025 4:28 AM EDT [facility] Blood Venous blood specimen / Unknown Venipuncture / Unknown 05/03/2025 3:16 AM EDT 05/03/2025 3:24 AM EDT us Diane Guzman MD LAB BLOOD ORDERABLES Final Result Performing Organization Address City/[facility]/[place] [address] * Hepatitis B Surface Antigen (05/03/2025 3:16 AM EDT) [facility] Hepatitis B Surf Antigen Negative Negative 05/03/2025 4:28 AM EDT [facility] Blood Venous blood specimen / Unknown Venipuncture / Unknown 05/03/2025 3:16 AM EDT 05/03/2025 3:24 AM EDT us Diane Guzman MD LAB BLOOD ORDERABLES Final Result Performing Organization Address City/[facility]/ZIP Co de Phone Number [facility] [address] [place] [address] * Nasopharyngeal Respiratory Panel (05/02/2025 1:05 PM EDT) [facility] Nasopharyngeal Respiratory PCR Interpretation Not Detected for all analytes Not Detected for all analytes 05/02/2025 3:14 PM EDT [facility] Swab Nasopharyngeal structure / Unknown Non-blood Collection / Unknown 05/02/2025 1:05 PM EDT 05/02/2025 1:12 PM EDT Narrative [facility] - 05/02/2025 3:14 PM [...] Respiratory PCR Panel is performed using the Living Prooflex instrument. This test is FDA approved for use with Nasopharyngeal swabs only. This test is used for clinical purposes. It should not be regarded as investigational or for research. The [facility] Clinical Microbiology Laboratory is certified under the Clinical Laboratory Improvement Amendments of 1988 (CLIA-88) as qualified to perform high complexity clinical laboratory testing. Diane Guzman MD LAB MICROBIOLOGY - GENERAL ORDERABLES Final Result [facility] [address] [place] [address] * Surgical Pathology Exam (05/01/2025 8:13 AM EDT) Case Report Surgical Pathology Case: [id number] Authorizing Provider: Mary Vicente MD Collected: 05/01/2025 0813 Ordering Location: [facility] Received: 05/01/2025 0917 Pathologist: Vidya Ly MD Specimens: A) - Toe, Right, R 5th toe B) - Toe, Right, R 5th toe margin 05/09/2025 9:56 AM EDT [facility] Correction History Case amended to provide diagnosis after final decal sections received 05/09/2025 9:56 AM EDT [facility] Comment:These results have b een appended to a previously final verified report. Final Diagnosis A. RIGHT FIFTH TOE, AMPUTATION: - ULCER WITH SUPPURATIVE INFLAMMATION, GANGRENOUS NECROSIS, AND UNDERLYING ACUTE OSTEOMYELITIS. B. RIGHT FIFTH TOE MARGIN, RESECTION: - NO ACUTE OSTEOMYELITIS IDENTIFIED. 05/09/2025 9:56 AM EDT [facility] Amendment electronically signed by Vidya Ly MD on 05/09/2025 at 0956 EDT at 1233 EDT Comment:Corrected result: Pr eviously reported as [Previous value contains rich text formatting which cannot be displayed here] (see Result History) on 05/05/2025 at 1233 EDT. Clinical Information Other chronic osteomyelitis of right foot ([facility]) [M86.671] 05/09/2025 9:56 AM EDT [facility] Gross Description A. R [...] The wound extends into the underlying bone. Staffing Administrator sections are submitted as follows: A1-A2: Necrotic [...] BLAS Kwok (ASCP) 05/09/2025 9:56 AM EDT [facility] Note: 05/09/2025 9:56 AM EDT [facility] Comment:Corrected result: Pr eviously [...] ORDERABLES Edited Result - Final [facility] [address] [place] [address] * PB POINT OF CARE IMAGING PLACEHOLDER [...] monitoring: continuous pulse ox, heart rate and brush holder inspector Block type: adductor canal and popliteal Laterality: [...] ORDERA BLES Final Result Performing Organization Address City/State/[facility] Co de Phone Number BLOOD BANK [address] [place] [address], [place] * POC Imaging (05/01/2025) Anatomical Region Laterality Modality Pelvis Other 05/01/2025 External Provider IMG POINT OF CARE ULTRASOUND E dited Result - Final * (ABNORMAL) Iron & Total Iron Binding Capacity, Plasma (Includes Transferrin) (04/29/2025 3:04 AM EDT) Iron, Plasma 36(L) 50 - 170 ug/dL 04/29/2025 3:55 AM EDT [facility] Transferrin, Plasma 197(L) 200 - 360 mg/dL 04/29/2025 3:55 AM EDT [facility] Total Iron Binding Capacity, Plasma 246 240 - 450 ug/mL 04/29/2025 3:55 AM EDT [facility] Transferrin Saturation 15 14 - 50 % 04/29/2025 3:55 AM EDT [facility] Blood Venous blood specimen / Unknown Venipuncture / Unknown 04/29/2025 3:04 AM EDT 04/29/2025 3:19 AM EDT us Sy De La Fuente APRN, DNP LAB BLOOD ORDERABLES Fin al Result Performing Organization Address City/[facility] de Phone Number [facility] [address] [place] [address] * TSH (04/29/2025 3:04 AM EDT) Thyroid Stimulating Hormone, Plasma 1.58 0.40 - 4.20 uIU/mL 04/29/2025 3:55 AM EDT [facility] Blood Venous blood specimen / Unknown Venipuncture / Unknown 04/29/2025 3:04 AM EDT 04/29/2025 3:19 AM EDT us Sy De La Fuente APRN, DNP LAB BLOOD ORDERABLES Fin al Result Performing Organization Address [facility] Phone Number [facility] [address] [place] [address] * (ABNORMAL) Hemoglobin A1c (04/29/2025 3:04 AM EDT) Hemoglobin A1c 8.9(H) <5.7 % 04/29/2025 9:40 AM EDT [facility] Blood Venous blood specimen / Unknown Venipuncture / Unknown 04/29/2025 3:04 AM EDT 04/29/2025 3:19 AM EDT Narrative [facility] - 04/29/2025 9:40 AM EDT HA1C Interpretive Data: Diagnosis of Diabetes: Diabetic > or = 6.5% Pre-diabetic 5.7 to 6.4% Non-diabetic < or = 5.6% Glycemic Targets for Type I and Type II Diabetics: Non- Adults <7.0% Adults <6.0% Children and Adolescents <7.5% Source: [place] [employer]. Standards of medical care in diabetes,2017. Diabetes Care.2017:40 (suppl 1):S1-S135. us Lockk A Jewish MODEL BUILDER DISPLAY, DNP LAB BLOOD ORDERABLES Fin al Result [facility] [address] [place] [address] * Folate (04/29/2025 3:04 AM EDT) Folate, Serum 10.5 >4.6 ng/mL 04/29/2025 4:05 AM EDT [facility] Blood Venous blood specimen / Unknown Venipuncture / Unknown 04/29/2025 3:04 AM EDT 04/29/2025 3:20 AM EDT us Sy De La Fuente APRN, DNP LAB BLOOD ORDERABLES Fin al Result Performing Organization Address [facility] Co de Phone Number [facility] [address] [place] [address] * Ferritin (04/29/2025 3:04 AM EDT) Ferritin, Serum 40 20 - 400 ng/mL 04/29/2025 4:06 AM EDT [facility] Blood Venous blood specimen / Unknown Venipuncture / Unknown 04/29/2025 3:04 AM EDT 04/29/2025 3:20 AM EDT us Sy De La Fuente APRN, DNP LAB BLOOD ORDERABLES Fin al Result Performing Organization Address City/[facility]/ZIP Co de Phone Number [facility] [address] [place] [address] * Vitamin B12 (04/29/2025 3:04 AM EDT) Vitamin B12, Serum 338 210 - 1,033 pg/mL 04/29/2025 4:06 AM EDT [facility] Blood Venous blood specimen / Unknown Venipuncture / Unknown 04/29/2025 3:04 AM EDT 04/29/2025 3:20 AM EDT us Sy De La Fuente APRN, DNP LAB BLOOD ORDERABLES Fin al Result Performing Organization Address City/[facility]/ZIP Co de Phone Number [facility] [address] [place] [address] * Cortisol (04/29/2025 3:04 AM EDT) Cortisol 2.80 Before 10am: 3.7 - 19.4. After 5pm: 2.9 - 17.3 ug/dL 04/29/2025 4:22 AM EDT [facility] Comment:Testing performed on Matt Answering Service Agent, standardized against NURSING HOME Reference Standard concentration values assigned by LC-MS/MS and verified by BCR 192 and BCR 193 certified reference materials. Blood Venous blood specimen / Unknown Venipuncture / Unknown 04/29/2025 3:04 AM EDT 04/29/2025 3:19 AM EDT us Sy De La Fuente MODEL BUILDER DISPLAY, DNP LAB REF LAB BLOOD AND FL UID ORD Final Result [facility] [address] [place] [address] * VAS Ankle Brachial Index - GABBI [...] are demonstrated at the levels of the STEEL BARREL REAMER and DPA. Segmental pressures are within normal limits with a STEEL BARREL REAMER GABBI of 1.1 (172 mmHg) and a DPA GABBI of 1.0 (149 mmHg). Digit pressures are of 122 mmHg. Left: Multiphasic waveforms are demonstrated at the levels of the STEEL BARREL REAMER and DPA. Segmental pressures are within normal limits with a STEEL BARREL REAMER GABBI of 1.1 (164 mmHg) and a DPA GABBI of 1.0 (153 mmHg). Digit pressures are of 151 mmHg. Procedure Note Chris Schaefer MD - 04/28/2025 CLINICAL INDICATION: Diabetic foot ulcer TECHNIQUE: Non-invasive, continuous wave Doppler exam with segmental pressures andspectral analysis of the lower extremity was performed. COMPARISON: None. FINDINGS: Right: Multiphasic waveforms are demonstrated at the levels of the STEEL BARREL REAMER andDPA. Segmental pressures are within normal limits with a STEEL BARREL REAMER GABBI of 1.1(172 mmHg) and a DPA GABBI of 1.0 (149 mmHg). Digit pressures are of 122mmHg. Left: Multiphasic waveforms are demonstrated at the levels of the STEEL BARREL REAMER andDPA. Segmental pressures are within normal limits with a STEEL BARREL REAMER GABBI of 1.1(164 mmHg) and a DPA [...] on04/28/2025 4:14 PM Sy De La Fuente MODEL BUILDER DISPLAY, DNP CV VASCULAR PROCEDURES F inal Result * Multi Drug Resistance Test (04/28/2025 1:44 PM EDT) Culture No Multi Drug Resistant Organisms Isolated 04/29/2025 2:32 PM EDT [facility] Swab (Nares and Saba Rectal) Non-blood Collection / Unknown 04/28/2025 1:44 PM EDT 04/28/2025 2:15 PM EDT Narrative [facility] - 04/29/2025 2:32 PM EDT This test was developed and its performance characteristics determined by the [facility]. Although the media is FDA-approved, it is not FDA-approved for all specimen types submitted. The FDA has determined that such clearance or approval is not necessary. This test is used for surveillance purposes. It should not be regarded as investigational or for research. The [facility] is certified under the Clinical Laboratory Improvement Amendments of 1988 (CLIA-88) as qualified to perform high complexity clinical laboratory testing. Sy De La Fuente APRN, DENISE LAB MICROBIOLOGY - GENER AL ORDERABLES Final Result Performing Organization Address City/[facility]/ZIP Co de Phone Number [facility] [address] [place] [address] * Lavender Top (04/28/2025 8:13 AM EDT) Extra Hold for add-ons 04/28/2025 11:01 AM EDT [facility] Comment:Auto resulted. Blood Venous blood specimen / Unknown 04/28/2025 8:13 AM EDT 04/28/2025 8:19 AM EDT Marjorie Myers MD LAB BLOOD ORDERABLES Final Resul t [facility] [address] [place] [address] * Light Green Top (04/28/2025 8:13 AM EDT) Extra Hold for add-ons 04/28/2025 11:01 AM EDT [facility] Comment:Auto resulted. Blood Venous blood specimen / Unknown 04/28/2025 8:13 AM EDT 04/28/2025 8:19 AM EDT us Marjorie Myers MD LAB BLOOD ORDERABLES Final Resul t Performing Organization Address City/[facility]/ZIP Co de Phone Number [facility] [address] [place] [address] * APTT (04/28/2025 8:13 AM EDT) aPTT 32 25 - 35 sec 04/28/2025 8:33 AM EDT [facility] Blood Venous blood specimen / Unknown Venipuncture / Unknown 04/28/2025 8:13 AM EDT 04/28/2025 8:18 AM EDT us Sy De La Fuente APRN, DENISE LAB BLOOD ORDERABLES Fin al Result Performing Organization Address [facility] [place] [address] * (ABNORMAL) PT/INR (04/28/2025 8:13 AM EDT) Prothrombin Time 17.5(H) 12.0 - 14.3 sec 04/28/2025 8:33 AM EDT [facility] INR 1.4(H) 0.9 - 1.1 04/28/2025 8:33 AM EDT [facility] Blood Venous blood specimen / Unknown Venipuncture / Unknown 04/28/2025 8:13 AM EDT 04/28/2025 8:18 AM EDT Narrative [facility] - 04/28/2025 8:33 AM [...] Fin al Result Performing Organization Address City/[facility]/[place] [address] * CT Foot Right w IV Contrast [...] at day 5 05/03/2025 12:01 AM EDT [facility] Blood Venous blood specimen / Unknown Venipuncture / Unknown 04/27/2025 10:16 PM EDT 04/27/2025 10:53 PM EDT us Jessa Cesar MD LAB MICROBIOLOGY - GENERAL O RDERABLES Final Result [facility] [address] [place] [address] * (ABNORMAL) Blood gas, venous (04/27/2025 10:16 PM EDT) pH, Venous 7.47(H) 7.32 - 7.43 LAB HEMATOLOGY METHOD 04/27/2025 10:21 PM EDT [facility] pCO2, Venous 50 40 - 55 mmHg LAB HEMATOLOGY METHOD 04/27/2025 10:21 PM EDT [facility] pO2, Venous 30 25 - 40 mmHg LAB HEMATOLOGY METHOD 04/27/2025 10:21 PM EDT [facility] SO2, Measured, Venous 52(L) 65 - 80 % LAB HEMATOLOGY METHOD 04/27/2025 10:21 PM EDT [facility] Base Excess, Venous 11.6(H) -2.0 - 3.0 mmol/L LAB HEMATOLOGY METHOD 04/27/2025 10:21 PM EDT [facility] Bicarbonate, Calculated, Venous 37(H) 22 - 26 mmol/L LAB HEMATOLOGY METHOD 04/27/2025 10:21 PM EDT [facility] Hematocrit, Whole Blood 30.1(L) 40.0 - 51.0 % LAB HEMATOLOGY METHOD 04/27/2025 10:21 PM EDT [facility] Sodium, Whole Blood 136 136 - 145 mmol/L LAB HEMATOLOGY METHOD 04/27/2025 10:21 PM EDT [facility] Potassium, Whole Blood 2.8(L) 3.6 - 4.9 mmol/L LAB HEMATOLOGY METHOD 04/27/2025 10:21 PM EDT [facility] Chloride, Whole Blood 88(L) 97 - 107 mmol/L LAB HEMATOLOGY METHOD 04/27/2025 10:21 PM EDT [facility] Glucose, Whole Blood 131(H) 74 - 99 mg/dL LAB HEMATOLOGY METHOD 04/27/2025 10:21 PM EDT [facility] Lactate, Venous, Whole Blood 2.0 0.5 - 2.2 mmol/L LAB HEMATOLOGY METHOD 04/27/2025 10:21 PM EDT [facility] Ionized Calcium, Whole Blood 4.2(L) 4.6 - 5.1 mg/dL LAB HEMATOLOGY METHOD 04/27/2025 10:21 PM EDT [facility] Blood Venous blood specimen / Unknown Venipuncture / Unknown 04/27/2025 10:16 PM EDT 04/27/2025 10:20 PM EDT us Jessa Cesar MD LAB BLOOD ORDERABLES Final R esult Performing Organization Address City/[facility]/ZIP Co de Phone Number [facility] [address] [place] [address] * ED HIV 1/2 Antibody/Antigen Screen w/Reflex to HIV 1/2 Differentiation (04/27/2025 9:37 PM EDT) HIV 1 & 2 Antibody/Antigen Screen Non Reactive Non Reactive 04/27/2025 10:41 PM EDT [facility] Comment:Screening for HIV 1 & 2 antibodies, and P24 antigen is NONREACTIVE. No confirmatory testing is required. Blood Venous blood specimen / Unknown Venipuncture / Unknown 04/27/2025 9:37 PM EDT 04/27/2025 10:00 PM EDT us Pool Jean MD LAB BLOOD ORDERABLES Final Res ult Performing Organization Address City/[facility]/ZIP Co de Phone Number [facility] [address] [place] [address] * Beta-Hydroxybutyric Acid (04/27/2025 9:37 PM EDT) Beta-Hydroxybut yric Acid, Plasma 0.23 <=0.27 mmol/L 04/27/2025 10:56 PM EDT [facility] Blood Venous blood specimen / Unknown Venipuncture / Unknown 04/27/2025 9:37 PM EDT 04/27/2025 9:40 PM EDT Jessa Cesar MD LAB BLOOD ORDERABLES Final R esult Performing Organization Address [facility] Co de Phone Number [facility] [address] [place] [address] * (ABNORMAL) Procalcitonin (04/27/2025 9:37 PM EDT) Pathologist [facility] Procalcitonin, Plasma 0.11(H) <0.09 ng/mL 04/28/2025 8:36 AM EDT [facility] Blood Venous blood specimen / Unknown Venipuncture / Unknown 04/27/2025 9:37 PM EDT 04/27/2025 9:40 PM EDT Narrative [facility] - 04/28/2025 8:36 AM [...] predict 28 day mortality risk. Please consult www.sepuic-tqf-ychmmytuuq.com for more information. Test performed at [facility]. us Sy De La Fuente APRN, DNP LAB BLOOD ORDERABLES Fin al Result Performing Organization Address City/[facility]/ZIP Co de Phone Number [facility] [address] [place] [address] * Hepatitis C Antibody - ED (04/27/2025 9:37 PM EDT) Pathologist [facility] Hepatitis C Antibody Negative Negative 04/27/2025 10:41 PM EDT [facility] Blood Venous blood specimen / Unknown Venipuncture / Unknown 04/27/2025 9:37 PM EDT 04/27/2025 10:00 PM EDT us Pool Jean MD LAB BLOOD ORDERABLES Final Res ult Performing Organization Address City/[facility]/ZIP Co de Phone Number [facility] [address] [place] [address] * (ABNORMAL) Sed rate, automated (04/27/2025 9:37 PM EDT) Sedimentation Rate >111(H) <15 mm/hr 2024 11:10 PM EDT [facility] Blood Venous blood specimen / Unknown Venipuncture / Unknown 04/27/2025 9:37 PM EDT 04/27/2025 9:40 PM EDT us Jessa Cesar MD LAB BLOOD ORDERABLES Final R esult Performing Organization Address [facility] Co de Phone Number [facility] [address] [place] [address] * (ABNORMAL) C-reactive protein (04/27/2025 9:37 PM EDT) CRP, Plasma 82.6(H) <=8.0 mg/L 04/27/2025 10:03 PM EDT [facility] Blood Venous blood specimen / Unknown Venipuncture / Unknown 04/27/2025 9:37 PM EDT 04/27/2025 9:40 PM EDT Narrative [facility] - 04/27/2025 10:03 PM EDT This CRP test is appropriate for assessment of infection, systemic inflammation and/or tissue injury. To assess cardiovascular disease risk order high sensitivity CRP (CRPH). us Pool Jean MD LAB BLOOD ORDERABLES Final Res ult Performing Organization Address [facility] Co de Phone Number [facility] [address] [place] [address] from Last 3 Months Insurance MEDICARE Advance [...] updated to appropriate status: Yes Care Teams Sales Coach Relationship Specialty Start Date End Date Malcolm Hayward APRN [id number] PCP - General 09/21/23
--- OUTSIDE RECORDS SUMMARY | 2025-07-10 11:48 | XMS_ITS | Clinical Summary ---
Author Organization [facility] Address [address] [place] [address] Phone Care Team Providers Care Cane Flume Watchman Name Role Phone Allen RUSH, Emanuel Maurice Unavailable [phone] TRELL BECKWITH MD Unavailable [phone] PAWZI HENRY DPM Unavailable [phone] Petty Frost PA-C Primary Care Provider [phone] Reason for Visit and Chief Complaint Epidural Steroid Injection Problems Includes: Problems addressed during this encounter and other active Problems All Visits Onset Date Date of Diagnosis Resolved Date Provider Condition Status Lower Back Pain 04/22/2019 04/22/2019 Emanuel Villa MD Active Last Documented On 5 1:39AM ; [facility] Bone Pain in the Heel 06/27/2014 06/27/2014 Randy Booth DPM Active Last Documented On 5 1:37AM ; [facility] Plan of Treatment No [...] On 2 3:17PM By Estrellita Vázquez ; [facility] Metoclopramide HCl 10 MG Oral Tablet 04/21/2019 Prov ider: Chintan Aguayo MD Diagnosis: Last Documented On 9 4:08PM By Daniel Mo ; [facility] Atorvastatin Calcium 40 MG Oral Tablet 04/21/2019 Pr ovider: Diagnosis: Last Documented On 9 4:08PM By Daniel Mo ; [facility], [facility] Furosemide 40 MG Oral Tablet 04/21/2019 Provider: Diagnosis: Last Documented On 9 4:09PM By Daniel Mo ; [facility], [facility] Potassium Chloride 20 MEQ Oral Packet 04/21/2019 Pro vider: Diagnosis: Last Documented On 9 4:09PM By Daniel Mo ; [facility], [facility] Omeprazole 40 MG Oral Capsul e Delayed Release 04/21/2019 Provider: Chintan Aguayo MD Diagnosis: Last Documented On 9 4:10PM By Daniel Mo ; [facility] ARIPiprazole 5 MG Oral Tablet 04/14/2019 Provider: Diagnosis: Last Documented On 9 4:10PM By Daniel Mo ; [facility] Venlafaxine HCl ER 150 MG Or al Capsule Extended Release 24 Hour 03/31/2019 Provider: Diagnosis: Last Documented On 9 4:10PM By Daniel Mo ; [facility] metFORMIN HCl 1000 MG Oral Tablet 03/10/2019 Provide r: Chintan Aguayo MD Diagnosis: Last Documented On 9 4:10PM By Daniel Mo ; [facility] Lisinopril-hydroCHLOROthiazi de 20-25 MG Oral Tablet 03/04/2019 Provider: TRELL BECKWITH MD Diagnosis: Last Documented On 9 4:10PM By Daniel Mo ; [facility] Medications Administered Includes: Administered Medications from this encounter No Administered Medications Recorded Results Includes: Results discussed during this encounter No Results Recorded For Specified Dates History of Present Illness Includes: History of Present Illness from this encounter No History of Present Illness Recorded Social History Description Last Updated Sex - Male 11/02/2022 Last Documented On 3 1:37PM ; [facility] Smoking Status Unknown Medical History Includes: Medical [...] Includes: Active Allergies No Known Allergies Care Cane Flume Watchman Name (Identifier) Role/Relation Location/Telecom Last Documented By Emanuel Villa MD ([id number]) Assigned practitioner (occupation) [address] [place], [place], , [address] tel:[phone] Last Documented On 11/02/2022 1:37PM ; [facility] TRELL BECKWITH MD ([id number]) [facility], [address] tel:[phone] Last Documented On 06/27/2014 1:01PM ; [facility] ZI SUE DPM ([id number]) [address] [place] [address], , [address] tel:[phone] Last Documented On 06/27/2014 1:01PM ; [facility] Petty Frost PA-C ([id number]) Primary care physician (occupation) [address] [place] [address], , [address] tel:[phone] Last Documented On 11/02/2022 1:37PM ; [facility] Encounters Encounter Provider Location (Healthcare Service Location) Date Check-In Time Check-Out Time Diagnosis Encounter Disposition Epidural Steroid Injection Emanuel [facility] 2021 11:04AM 11:54AM Payer Includes: Active Insurance Policies Plan Name (Payer ID) Coverage Type Member ID Group # Subscriber (ID) Relationship Effective Dates 1 - [facility] ([id number]) [id number] Gonzalo Russell Self 03/13/2022 - Unknown Last Documented On 11:04AM ; [facility]
[2025-07-10 11:50] LABS: Microscopic, Urine URINE MICROSCOPIC (MICROSCOPIC)
[2025-07-10 12:07] LABS: Hematocrit 32.0 % (42.0-52.0); Hemoglobin 9.6 g/dL (14.1-18.0); Immature Granulocytes % 0.4 %; Mean Corpuscular HGB Conc 30.0 g/dL (31.8-35.4); Mean Corpuscular Hemoglobin 22.0 pg (27.0-31.2); Mean Corpuscular Volume 73.2 fl (80-94); Nucleated Red Blood Cells % 0 %; Platelet Count 208 K/mm3 (142-424); Red Blood Count 4.37 M/mm3 (4.60-6.20); Red Cell Distribution Width-SD 48.0 fL; White Blood Count 8.2 K/mm3 (4.8-10.8)
[2025-07-10 12:33] LABS: Bilirubin,Urine Negative (Negative); Glucose,Urine (UA) Negative (Negative); Ketones,Urine Negative (Negative); Leukocyte Esterase,Urine 1+ (Negative); PH,Urine 6.5 (5.0-8.5); Protein,Urine Negative (Negative); Specific Gravity, Urine 1.010 (1.005-1.030); Urobilinogen,Urine 0.2 EU/dl (0.2)
[2025-07-10 12:34] LABS: Color,Urine Straw (Yellow)
[2025-07-10 13:14] LABS: Bacteria,Urine 2+ /lpf; Squamous Epithelial Cell,Urine Occasional #/hpf (0-5)
== END 2025-07-10 23:59 | disposition home or self-care (01) ==
LOC: LAB 11:41
PROVIDERS: PCP Nurse Practitioner Family; Visit Provider Family Medicine
DX: N39.0 Urinary tract infection, site not specified (principal); E78.5 Hyperlipidemia, unspecified
CPT/HCPCS: 81001; 85025; 87086; 87088